=== PATIENT | female | born 1970 | race Caucasian/White ===

== ENCOUNTER → 2017-04-28 16:34 | Outpatient (CLI) | payer OTHER, SELFPAY ==
--- NOTE | 2017-04-28 16:38 | MM_ITS ---
. MM Dig screening mamm BI w/CAD CAD Screening ORDERING PHYSICIAN : [facility] PATIENT AGE: 46 years GENDER: Female COMPARISON: Previous mammograms: September.:. Film screen mammogram March 2006 & October 2005 TECHNIQUE: Standard CC and MLO images were obtained. R2 CAD reviewed. HISTORY. No female hormones. No new complaints. Noncontributory family history === FINDINGS: Azoq-kt-hedkrjks density breast with scattered fibroglandular elements bilaterally . No new dominant mass nor suspicious calcifications either breast RIGHT BREAST:Stable with no new findings follow up pneumonia LEFT BREAST:An asymmetric area of fibroglandular tissue again seen at the deep left lateral breast on cc view was seen on 2015 & even dates back to 2005.. Would also notes it dissipates on the MLO view along with no areas of concern or change on MLO view either. IMPRESSION: No significant new findings Stable mild asymmetry Follow-up in one year adequate, but should be encouraged and and emphasized BI-RADS Category: 2 Benign Finding(s) RECOMMENDED FOLLOW-UP: 1YR - 1 YEAR FOLLOW-UP (A letter has been sent to the patient regarding results of the study.)
== END ==
PROVIDERS: PCP Emergency Medicine; Visit Provider Nurse Practitioner Obstetrics & Gynecology
DX: Z12.31 Encounter for screening mammogram for malignant neoplasm of breast (principal)
CPT/HCPCS: 77067

== ENCOUNTER 2019-12-24 15:00 | Outpatient (RCR) | payer MEDICAID, SELFPAY | END 2019-12-24 15:05 | disposition home or self-care (01) | LOC: OT 15:00 | PROVIDERS: PCP Emergency Medicine; Visit Provider Orthopaedic Surgery Adult Reconstructive Orthopaedic Surgery | DX: M25.512 Pain in left shoulder (principal) | CPT/HCPCS: 97014; 97110; 97140; 97164; 97165; 97530; G0283 ==

== ENCOUNTER 2020-03-21 15:00 | Outpatient (RCR) | payer MEDICAID, SELFPAY | END 2020-03-21 15:05 | disposition home or self-care (01) | LOC: OT 15:00 | PROVIDERS: Visit Provider Orthopaedic Surgery Adult Reconstructive Orthopaedic Surgery | DX: M25.512 Pain in left shoulder (principal); Z96.612 Presence of left artificial shoulder joint | CPT/HCPCS: 97014; 97035; 97110; 97140; 97165; 97530; G0283 ==

== ENCOUNTER → 2020-08-15 14:17 | Outpatient (CLI) | payer MEDICAID, SELFPAY | PROVIDERS: Visit Provider Nurse Practitioner Family | DX: J02.9 Acute pharyngitis, unspecified (principal) ==

== ENCOUNTER → 2020-08-29 15:40 | Outpatient (CLI) | payer MEDICAID, SELFPAY | PROVIDERS: Visit Provider Internal Medicine Gastroenterology | DX: Z20.822 Contact with and (suspected) exposure to COVID-19 (principal) | CPT/HCPCS: U0003 ==

== ENCOUNTER 2020-09-01 07:22 | Day surgery (SDC) | payer MEDICAID, SELFPAY ==
[2020-08-28 14:27] VITALS: BMI 23.8
[2020-09-01] VITALS (8 sets, daily range): BP systolic 83–115; BP diastolic 45–67; PULSE 60–97; RESP 18; TEMP 36.3–36.5; O2SAT 96–100
--- NOTE | 2020-09-01 08:23 | P.PN_ITS ---
[facility] Anesthesia Checklist - Patient Identification Patient Identification: Arm Band - Structural Data Admitted From: Home Planned Operative Procedure/s: EGD Consent for Planned Operative Procedure(s) Verified: Yes - NPO Status Verified Time NPO: 00:00 - Airway Assessment C-Spine Mobility Assessed: Yes TMJ Mobility Assessed: Yes Dentition: Good Dentition - Neurological Assessment Level of Consciousness: Awake Hx Seizures: No Numbness or tingling in extremities: No - Anesthesia Plan Anesthesia Risk discussed: Yes Anesthesia Plan: Verified ASA Class: II Anesthesia Type: MAC [facility] History I have reviewed the patient's past medical history: Yes Medical History: Reports:: Anxiety, Depression Denies:: Cancer, Diabetes Mellitus Type 1, Diabetes Mellitus Type 2, Internal Pacemaker, MRSA, Seizures *Have you ever received a pneumonia vaccine?: No *Have you received a flu vaccine this season?: No Other Medical History: Reports: Other Anesthesia experience/problems:: Difficulty breathing Laterality Cases: Left: Arthroscopy Shoulder Other Surgeries: Yes: No Previous Surgery, Cholecystectomy, Colonoscopy, C- section, Diagnostic Lap, Hysterectomy-Total. No: Pacemaker Amputation: No Fractures: No - *Social History Last grade of school completed: High school graduate Smoking Status: Current every day smoker Tobacco Type: cigarettes # Packs/Day (cigarettes): 1 #Yrs smoked (if former smoker): 28 Alcohol Intake: never Substance Use Type: denies use *Occupational Status:: unemployed Housing: house Household Members: family *Travel in the last 8 weeks: None - Psychiatric History Pschychiatric History:: Reports:: Anxiety, Depression Family Hx:: Hyperlipidemia, Diabetes, Coronary Artery Disease
--- NOTE | 2020-09-01 08:29 | P.PCN_ITS ---
[facility] Procedure Note Procedure Note:: Upper Endoscopy Procedure Report: Esophagogastroduodenoscopy with cold biopsies and TTS balloon dilation Endoscopost: Hadley Peters II, MD Referring Physician: ALISSA Andres/Edson Gonzales MD Date of Procedure: September 01, 2020 Equipment: Olympus GIF 190 standard upper endoscope Sedation: MAC sedation Indications: Mrs. Reese is a 49-year-old female with the onset of odynophagia and dysphagia more than 2 weeks ago now. She does get hiccups after swallowing. She did have this painful swallowing and was diagnosed with thrush. She was given Diflucan (fluconazole) for 1 week and has improved. She was having a low- grade fever. She does report more heartburn recently. She is not on any PPI t herapy. She has not been on any recent antibiotics or corticosteroids. She has lost more than 5 pounds. She reports no bloating, abdominal pain or belching. This is her first upper endoscopy. The patient is a smoker. Procedure: Prior to the procedure, a history and physical exam was performed, and patient's medications and allergies were reviewed. The risks, benefits and alternatives of the sedation and procedure were discussed with the patient. All questions were answered and informed consent was obtained. The patient was brought to the procedure room. Patient identification and proposed procedure were verified by the physician and the nurse. The patient was placed in a left lateral decubitus position and the scope was passed under direct vision. Throughout the procedure, the patient's blood pressure, pulse, and oxygen saturations were monitored continuously. The upper GI endoscopy was accomplished without difficulty. The patient tolerated the procedure well. Findings: The scope was passed directly into the upper esophagus and advanced to the third portion of the duodenum. The post bulbar duodenum and duodenal bulb were normal with normal mucosa and conniventes. The scope was withdrawn through a normal duodenal bulb and pylorus into the stomach. There was mild linear reactive gastropathy of the antrum. The remainder of the body and fundus of the stomach were grossly normal. Upon retroflexion there was a 2 cm hiatal hernia. 2 biopsies were taken in the antrum and along the lesser curvature for histology to rule out gastritis and/or H pylori. The scope was then withdrawn into the esophagus. There was grade A reflux esophagitis and serrated Z-line. Biopsies were taken from the GE junction. There were strong tertiary contractions and evidence of moderate esophageal dysmotility. The entire esophagus was dilated to 60 English/20 mm with a TTS hydrostatic balloon. There was some resistance at the cricopharyngeus. The remainder of the esophageal mucosa was normal. Impression: 1. Cricopharyngeal spasm status post dilation to 20 mm 2. Grade A reflux esophagitis with moderate esophageal dysmotility and small 2 cm hiatal hernia 3. Mild linear reactive gastropathy of antrum Plan: I did not see any evidence of candidal esophagitis. I do feel that she gets some esophageal dyskinesia. I am going to place her on omeprazole for 3 months. I will follow-up the biopsies. We will discuss additional treatment options.
== END 2020-09-01 09:33 | disposition home or self-care (01) ==
LOC: OUTP 07:24
PROVIDERS: PCP Emergency Medicine; Visit Provider Internal Medicine Gastroenterology
PROC: 0DJ08ZZ Inspection of Upper Intestinal Tract, Via Natural or Artificial Opening Endoscopic (ICD-10-PCS; CPT 43235; principal; 2020-09-01 08:30)
DX: J39.2 Other diseases of pharynx; K20.80 Other esophagitis without bleeding; K22.4 Dyskinesia of esophagus; K44.9 Diaphragmatic hernia without obstruction or gangrene; K31.89 Other diseases of stomach and duodenum; F41.9 Anxiety disorder, unspecified; F32.9 Major depressive disorder, single episode, unspecified; Z72.0 Tobacco use; Z79.899 Other long term (current) drug therapy; Z91.040 Latex allergy status
CPT/HCPCS: 43239; 43249; C1726

== ENCOUNTER 2020-09-10 13:24 | Emergency (ER) | payer MEDICAID, SELFPAY ==
[2020-09-10 13:39] VITALS: BP 149/92; PULSE 64; RESP 19; TEMP 36.9; O2SAT 98; BMI 24.6
--- NOTE | 2020-09-10 14:15 | HMH.EDUTC ---
[facility] Disposition Clinical Impression: Sinusitis Qualifiers: Sinusitis location: unspecified location Chronicity: unspecified Qualified Code(s): J32.9 - Chronic sinusitis, unspecified Disposition: Home, Self-Care Condition on Discharge: Good Instructions: Sinusitis, DI for Sinusitis, Shingles, DI for Shingles, Amoxicillin and Clavulanic Acid, Acyclovir Additional Instructions: *Monitor Temp, Over the counter Motrin or Tylenol as directed/as needed Tylenol every 4 hours and Motrin every 6 hours (as long as your family doctor has told you that you can take it) for fever or pain. and straight to ER if unable to lower temp less than 101.0 after medication given *Warm salt water gargles may help to soothe the throat *Throat Lozenges *Warm fluids like tea with honey may help to soothe the throat *Sleep elevated *Humidifier/Vaporizer *Flonase 2 sprays in each nostril daily but be aware that it may take 2-3 days before you notice improvement Take medication as prescribed Return if needed *Follow up IMMEDIATELY for new or worsening symptoms or no Noticeable improvement over the next 48-72 hours. 911 for difficulty breathing or swallowing Prescriptions: Acyclovir 800 mg PO 5XDAY 7 Days #35 tab Transmission Status: Pending to [facility] Amoxicillin/Potassium Clav [Augmentin 875-125 Tablet] 1 tab PO Q12H 7 Days #14 tab Transmission Status: Pending to [facility] Fluticasone Propionate [Flonase 50mcg nasal spray 16gm] 1 spr NS DAILY #1 bottle Transmission Status: Pending to [facility] Benzonatate [Tessalon Perle 100mg Cap*] 100 mg PO TID PRN #15 cap PRN Reason: Cough Transmission Status: Pending to [facility] Referrals: dEson Gonzales MD [Primary Care Provider] - As needed Time of Disposition: 14:35 Medical Decision Making - Supa Inquiry Pt receiving controlled substance: No Supa was queried for this patient: No Vital Signs: 09/10/20 13:39 Temperature 98.5 F Temperature Source Oral Pulse Rate [Left] 64 Respiratory Rate 19 Blood Pressure [Right Arm] 149/92 H Blood Pressure Mean [Right Arm] 111 02 Sat by Pulse Oximetry 98 [facility] HPI - General Stated complaint: runny nose,headache,cough Time Seen by Provider: 09/10/20 14:15 Mode of Arrival: Ambulatory Source of Information: Patient Limitations: No Limitations Description of Symptoms (Recalled from Triage Doc. by RN): pt c/o a HARDY, runny nose, cough and sinus pressure. HEENT Symptoms (Recalled from RN notes): Yes (HARDY, runny nose and sinus pressure) Resp Symptoms (Recalled from RN notes): Yes (cough) Skin Symptoms (Recalled from RN notes): No MS Symptoms (Recalled from RN notes): No Functional Status (Recalled from RN notes): na - History of Present Illness Provider Complaint: Patient states that she has been having sinus problems for over about 2 weeks States that she was tested for COVID and URP on Tuesday and it was negative States that she has continued to have pain and pressure in her sinuses with congestion and cough State that she also has a blister like lesion under her right nostril that she scratched off and that denney she wanted to have checked - Related Data Home Medications Medication Instructions Recorded Confirmed Propranolol HCl 40 mg PO BID 08/28/20 09/01/20 Previous Rx's Medication Instructions Recorded citalopram 40 mg tablet See Rx Instructions .ROUTE 09/03/20 .COMPLEX #90 tablet Acyclovir 800 mg PO 5XDAY 7 Days #35 tab 09/10/20 Amoxicillin/Potassium Clav 1 tab PO Q12H 7 Days #14 tab 09/10/20 [Augmentin 875-125 Tablet] Benzonatate [Tessalon Perle 100mg 100 mg PO TID PRN #15 cap 09/10/20 Cap*] Fluticasone Propionate [Flonase 1 spr NS DAILY #1 bottle 09/10/20 50mcg nasal spray 16gm] Allergies Allergy/AdvReac Type Severity Reaction Status Date / Time latex Allergy Unknown POWDER IN Verified 09/10/20 13:53 LATEX GLOVES - Worker's Comp Is this a Worker's
[2020-09-10 14:45] VITALS: BP 141/87; PULSE 69; RESP 19; TEMP 36.9
== END 2020-09-10 14:46 | disposition home or self-care (01) ==
PROVIDERS: Emergency Provider Nurse Practitioner; PCP Emergency Medicine
DX: J32.9 Chronic sinusitis, unspecified (principal); F41.8 Other specified anxiety disorders; F17.210 Nicotine dependence, cigarettes, uncomplicated
CPT/HCPCS: 99202; G0463

== ENCOUNTER 2021-01-29 12:08 | Emergency (ER) | payer MEDICAID, SELFPAY ==
[2021-01-29 13:30] VITALS: BP 126/78; PULSE 75; RESP 18; TEMP 36.8; O2SAT 99; BMI 19.7
--- NOTE | 2021-01-29 13:32 | XR_ITS ---
PROCEDURE: XR HIP LT 2-3V W/PELVIS CLINICAL INDICATION: PAIN COMPARISON: No exams were available for comparison FINDINGS: No fracture or dislocation is evident. No significant degenerative change. No lytic or blastic change. Unremarkable soft tissues. There is a rounded opacity in the right mid abdominal region and may be due to an overlying artifact measuring 15 mm in diameter. IMPRESSION: No acute findings. Dictated by: Darci Taylor MD 01/29/2021 15:55 Darci Taylor MD in [place] 01/29/2021 15:55
--- NOTE | 2021-01-29 13:32 | XR_ITS ---
PROCEDURE: XR LUMBAR SPINE 2-3V CLINICAL INDICATION: PAIN COMPARISON: CT ABDPELW CT ABD PELVIS W/ CONTRAST from 07/15/2014 MR REFERRAL AND INFORMATION AIDE/O MRI-L-SPINE W/O from 04/02/2015 FINDINGS: Alignment: Normal alignment. Bony structures: No fracture or dislocation. No lytic or blastic change. Disc spaces: No significant degenerative change. The disc spaces are preserved. Additional findings: Atherosclerotic calcification of the aorta. There is anterior angulation of the coccyx which is a chronic finding similar to 07/15/2014 CT scan. IMPRESSION: No acute findings. Dictated by: Darci Taylor MD 01/29/2021 16:04 Darci Taylor MD in [place] 01/29/2021 16:04
--- NOTE | 2021-01-29 13:53 | HMH.EDUTC ---
[facility] Disposition Clinical Impression: Low back pain Qualifiers: Chronicity: unspecified Back pain laterality: left Sciatica presence: with sciatica Sciatica laterality: sciatica of left side Qualified Code(s): M54.42 - Lumbago with sciatica, left side Disposition: Home, Self-Care Condition on Discharge: Good Instructions: Low Back Pain, DI for Low Back Pain, Methocarbamol, Methylprednisolone Additional Instructions: *Remember you had a Toradol shot in the clinic today, which is similar to Motrin *Over the counter Motrin, Not additional anti-inflammatory like motrin, aleve, advil with the above amount of ibuprofen. You can still take Tylenol every 4 hours as needed if you need something else for pain *Ice 20 minutes every 2 hours for the first 48 hours after the initial injury followed by moist heat every 20 minutes 3-4 times a day to affected area *Muscle relaxer as directed as needed for muscle spasms but remember, it WILL cause drowsiness You cannot take it and drive, operate machinery or care for small children. *Keep this area active, no movement leads to more stiffness, However take it easy and avoid heavy lifting pushing or pulling *Follow up with you family doctor if no improvement for further treatment Prescriptions: methylPREDNISolone [Medrol 4mg tab] 4 mg PO DIRECTED #21 tab Transmission Status: Received by [facility] methocarbamoL [Methocarbamol 500mg Tablet] 500 mg PO BID PRN #20 tab PRN Reason: Muscle Spasm Transmission Status: Received by [facility] Referrals: Edson Gonzales MD [Primary Care Provider] - As needed Time of Disposition: 15:13 Medical Decision Making - Supa Inquiry Pt receiving controlled substance: No Supa was queried for this patient: No Vital Signs: 01/29/21 13:30 Temperature 98.3 F Temperature Source Oral Pulse Rate [Right Radial] 75 Respiratory Rate 18 Blood Pressure [Right Arm] 126/78 Blood Pressure Mean [Right Arm] 94 Blood Pressure Source [Right Arm] Manual Cuff/ Doppler Blood Pressure Position [Right Arm] Sitting 02 Sat by Pulse Oximetry 99 Oxygen Delivery Method Room Air Orders (Tests/Meds): ED MEDICATIONS Discontinued Medications Generic Name Dose Route Start Last Admin Trade Name Freq PRN Reason Stop Dose Admin Ketorolac Tromethamine 60 mg 01/29/21 14:38 01/29/21 14:57 Ketorolac 60mg/2ml Vial IM 01/29/21 14:39 60 mg ONCE ONE Administration Methylprednisolone Sodium Succinate 125 mg 01/29/21 14:38 01/29/21 14:57 Methylprednisolone Sod Succ 125mg Vial IM 01/29/21 14:39 125 mg ONCE ONE Administration ORDERS Category Date Time Status XR hip LT 2-3V w/pelvis Stat Exams 01/29/21 13:32 Taken XR lumbar spine 2-3V Stat Exams 01/29/21 13:32 Taken - Radiology Data #1 Image(s): Hip Image Reviewed: Yes I reviewed the patient's radiology image w/the ED provider Preliminary Findings: Normal/NAD, No Fracture Seen #2 Image(s): L-Spine Image Reviewed: Yes I reviewed the patient's radiology image w/the ED provider Preliminary Findings: Normal/NAD, No Fracture Seen Medical Decision Narrative: Medications discussed with pharmacy Patient reports that she has taken muscle relaxers in the past without complications [facility] [place] HPI - General Stated complaint: back pain, no accident Time Seen by Provider: 01/29/21 13:53 Mode of Arrival: Ambulatory Source of Information: Patient Limitations: No Limitations Description of Symptoms (Recalled from Triage Doc. by RN): Pt states lower back pain, left hip pain, and no known accident HEENT Symptoms (Recalled from RN notes): No Resp Symptoms (Recalled from RN notes): No Skin Symptoms (Recalled from RN notes): No MS Symptoms (Recalled from RN notes): No Functional Status (Recalled from RN notes): n/a - History of Present Illness Provider Complaint: Patient state that she has been having pain in her left lower back area that radiates into left hip and arou
[2021-01-29 15:29] VITALS: BP 126/78; PULSE 75; RESP 18; TEMP 36.8; O2SAT 99
== END 2021-01-29 15:29 | disposition home or self-care (01) ==
PROVIDERS: Emergency Provider Nurse Practitioner; PCP Emergency Medicine
DX: M54.42 Lumbago with sciatica, left side (principal)
CPT/HCPCS: 72100; 73502; 96372; 99202; G0463

== ENCOUNTER 2022-01-23 16:35 | Emergency (ER) | payer MEDICAID, SELFPAY ==
[2022-01-23 16:36] VITALS: BP 133/81; PULSE 72; RESP 18; TEMP 36.9; O2SAT 97; BMI 26.4
[2022-01-23 17:00] VITALS: BP 140/78; PULSE 61; O2SAT 96
--- NOTE | 2022-01-23 17:13 | CT_ITS ---
PROCEDURE INFORMATION: Exam: CT Abdomen And Pelvis With Contrast Exam date and time: 01/23/2022 5:48 PM Age: 51 years old Clinical indication: Abdominal pain; Generalized TECHNIQUE: Imaging protocol: Computed tomography of the abdomen and pelvis with contrast. Radiation optimization: All CT scans at this facility use at least one of these dose optimization techniques: automated exposure control; mA and/or kV adjustment per patient size (includes targeted exams where dose is matched to clinical indication); or iterative reconstruction. Contrast material: ISOVUE; Contrast volume: 75 ml; Contrast route: IV; COMPARISON: CR XR HIP LT 2-3V W/PELVIS 01/29/2021 1:52 PM FINDINGS: Coronary arteries: Coronary artery calcifications. Liver: Hepatic steatosis. Gallbladder and bile ducts: Gallbladder is absent. Pancreas: Normal. No ductal dilation. Spleen: Normal. No splenomegaly. Adrenal glands: Normal. No mass. Kidneys and ureters: Normal. No hydronephrosis. Stomach and bowel: Liquid fecal contents of the colon suggesting diarrhea. Mild nonspecific bowel wall thickening of portions of small bowel and colon. Appendix: Unremarkable appendix. Intraperitoneal space: Unremarkable. No free air. No significant fluid collection. Vasculature: The arteries demonstrate moderate to severe atherosclerotic disease. Lymph nodes: Unremarkable. No enlarged lymph nodes. Urinary bladder: Unremarkable as visualized. Reproductive: Status post hysterectomy. Bones/joints: Unremarkable. No acute fracture. Soft tissues: There is a healed anterior abdominal wall incision. IMPRESSION: 1. Nonspecific findings that could correlate with mild enterocolitis in the appropriate clinical setting. 2. Hepatic steatosis.
--- NOTE | 2022-01-23 17:13 | HMH.EDGENADL ---
Discharge Plan Disposition Patient Disposition: Home, Self-Care Condition: Good Prescriptions Prescriptions: No Action citalopram 40 mg tablet See Rx Instructions .ROUTE .COMPLEX Qty: 90 3RF Dose Instruction: Take 1 tablet by mouth once daily Rx Instructions: Take 1 tablet by mouth once daily fluticasone propionate 120 SPR/BOT bottle 1 spr NS DAILY Qty: 1 0RF Rx Instructions: each nostril daily propranolol 40 MG tablet See Rx Instructions .Route .COMPLEX Rx Instructions: TAKE 1/2 (ONE-HALF) TABLET BY MOUTH IN THE MORNING AND TAKE 1 TABLET AT BEDTIME methocarbamol 500 MG tablet 500 mg PO BID PRN (Reason: Muscle Spasm) Qty: 20 0RF Referrals Follow up/Referrals: Champ Quiroz MD [Primary Care Provider] - See instructions Activity Restrictions/Add. Instructions Additional Instructions/Restrictions: Collect a diarrhea sample using the provided supplies and return it along with the order form to ER registration at [facility] for testing. Obtain the results of this test from your primary care provider the next day. Zofran as needed for nausea. Do not take sertraline tomorrow, then contact your prescribing provider on Tuesday to discuss whether he should continue this medication. Clinical Impressions Clinical Impression: Diarrhea, Abdominal pain, epigastric, Nausea Instructions Patient Instructions: DI for Diarrhea and Traveler's Diarrhea -- Adult, DI for Acute Abdominal Pain, DI for Nausea -- Adult Discharge ED Provider: Giovanni Smith General Adult HPI General Chief complaint: Abdominal Pain Stated complaint: abd pain, burning in arms Time Seen by Provider: 01/23/22 17:20 Mode of Arrival: Ambulatory Source of Information: Patient Limitations: No Limitations Description of Symptoms (Recalled from ER Triage Doc. by RN): c/o upper gastric pain, nausea, diarrhea and no appetite for 2 weeks. States that her arms, chest and legs burn History of Present Illness HPI narrative: 2-week history of watery diarrhea, epigastric abdominal pain, nausea. Denies fever. Denies blood in her diarrhea. No recent travel or antibiotics. She relates the onset of symptoms to when her primary care provider changed her antidepressant medication. She states sertraline was started most recently and that is when her symptoms started. She also was recently prescribed Viibryd, but could not tolerate it and that medication was stopped. States she has an appointment for follow-up with her provider who wrote prescriptions on 01/31/2022. States last night she began having burning sensation in her arms, chest, and legs. Related Data Home Medications Medication Instructions Recorded Confirmed propranolol 40 mg tablet See Rx Instructions .Route 01/29/21 01/29/21 .COMPLEX High blood pressure Previous Rx's Medication Instructions Recorded fluticasone propionate 50 1 spr NS DAILY ##1 09/10/20 mcg/actuation nasal spray,suspension methocarbamol 500 mg tablet 500 mg PO BID PRN Muscle Spasm #20 01/29/21 tabs citalopram 40 mg tablet See Rx Instructions .Route 08/28/21 .COMPLEX #90 tabs Allergies Allergy/AdvReac Type Severity Reaction Status Date / Time latex Allergy Unknown POWDER IN Verified 09/10/20 13:53 LATEX GLOVES [facility] Disclaimer: The information contained in this section may have been updated after the patient was seen, as this information can be updated by other users. Social History Smoking Status: Current every day smoker tobacco type: cigarettes packs per day: 1 alcohol intake: never substance use type: denies use current occupational status: employed Travel in the last 8 weeks: None household members: family housing: house caffeine: Yes ROS Obtained: Yes Systems reviewed as appropriate & no additional complaints except as documented Constitutional Constitutional: Denies fever(s), Denies headache(s), Reports poor appetite
[2022-01-23 17:18] LABS: Coronavirus 19, PCR Not Detected (NotDetected); Influenza A, PCR Not Detected (NotDetected); Influenza B, PCR Not Detected (NotDetected)
[2022-01-23 17:23] LABS: Basophils # 0.2 K/mm3 (0-0.2); Basophils % 1.4 % (0.1-2.0); Chloride 102 mmol/L (98-107); Eosinophils # 0.3 K/mm3 (0.0-0.4); Eosinophils % 2.4 % (0.1-12.0); Hematocrit 43.3 % (37.0-47.0); Hemoglobin 14.8 g/dL (12.2-16.2); Lymphocytes # 3.4 K/mm3 (0.7-4.5); Lymphocytes % 26.4 % (10-50); Mean Corpuscular HGB Conc 34.3 g/dL (31.8-35.4); Mean Corpuscular Hemoglobin 30.5 pg (27.0-31.2); Mean Corpuscular Volume 89.1 fl (81-99); Mean Platelet Volume 8.5 fl (7.4-10.4); Monocytes # 0.8 K/mm3 (0.1-1.0); Monocytes % 6.3 % (1.7-9.3); Neutrophils # 8.1 K/mm3 (1.8-7.8); Neutrophils % 63.4 % (37.0-80.0); Platelet Count 476 K/mm3 (142-424); Potassium 3.2 mmoL/L (3.5-5.1); Red Blood Count 4.86 M/mm3 (4.20-5.40); Red Cell Distribution Width 13.9 % (11.5-17.5); Sodium 138 mmol/L (136-145); White Blood Count 12.7 K/mm3 (4.8-10.8)
[2022-01-23 17:26] LABS: Alanine Aminotransferase 44 U/L (12-78); Albumin Level 4.2 g/dl (3.5-5.0); Albumin/Globulin Ratio 1.4 (1.1-1.8); Alkaline Phosphatase 152 U/L (38-126); Amylase 52 U/L (30-110); Anion Gap 10.2 mEq/L (5-15); Aspartate Amino Transferase 46 U/L (14-36); Bilirubin,Total 0.3 mg/dl (0.2-1.3); Blood Urea Nitrogen 10 mg/dl (7-17); Calcium 9.5 mg/dl (8.4-10.2); Carbon Dioxide 29 mmol/L (22.0-30.0); Creatinine Clearance Estimated 106 mL/min (50-200); Estimated Glomerular Filt Rate 105 ml/min (>60); GFR (African American) 127 ML/MIN (>60); Globulin 2.9 g/dL (1.3-3.2); Glucose 106 mg/dl (74-100); Lipase 60 U/L (23-300); Total Protein,Serum 7.1 g/dl (6.3-8.2)
[2022-01-23 17:30] VITALS: BP 135/75; PULSE 66; O2SAT 97
--- NOTE | 2022-01-23 17:35 | ECG_ITS ---
APPROVED REPORT Exam: Resting ECG HR:67 bpm ECG Measurements Heart Rate 67 AXES TN 149 P 54 QRSd 94 QRS 60 QT 420 T 51 QTc 436 Conclusion SINUS RHYTHM NONSPECIFIC T-WAVE ABNORMALITY BORDERLINE ECG UNCONFIRMED REPORT Electronically signed by : Champ Quiroz MD 01/25/2022 20:03:14
[2022-01-23 18:06] LABS: Troponin I < 0.01 ng/ml (0.00-0.034)
[2022-01-23 19:48] VITALS: BP 130/78; PULSE 67; RESP 18; TEMP 36.9; O2SAT 97
== END 2022-01-23 19:49 | disposition home or self-care (01) ==
PROVIDERS: Emergency Provider Emergency Medicine; PCP Internal Medicine Adolescent Medicine
DX: R19.7 Diarrhea, unspecified (principal); R10.13 Epigastric pain; R11.0 Nausea
CPT/HCPCS: 74177; 80053; 82150; 83690; 84484; 85025; 93005; 99284; C9803; Q9967; U0003; U0005

== ENCOUNTER → 2022-01-25 17:05 | Outpatient (CLI) | payer MEDICAID, SELFPAY ==
[2022-01-25 18:34] LABS: Alanine Aminotransferase 42 U/L (12-78); Albumin Level 4.2 g/dl (3.5-5.0); Albumin/Globulin Ratio 1.6 (1.1-1.8); Alkaline Phosphatase 156 U/L (38-126); Anion Gap 10.5 mEq/L (5-15); Aspartate Amino Transferase 48 U/L (14-36); Bilirubin,Total 0.2 mg/dl (0.2-1.3); Blood Urea Nitrogen 5 mg/dl (7-17); Calcium 9.4 mg/dl (8.4-10.2); Carbon Dioxide 26 mmol/L (22.0-30.0); Chloride 105 mmol/L (98-107); Estimated Glomerular Filt Rate 88 ml/min (>60); GFR (African American) 106 ML/MIN (>60); Globulin 2.7 g/dL (1.3-3.2); Glucose 99 mg/dl (74-100); Potassium 3.5 mmoL/L (3.5-5.1); Sodium 138 mmol/L (136-145); Total Protein,Serum 6.9 g/dl (6.3-8.2)
[2022-01-25 18:45] LABS: Basophils # 0.2 K/mm3 (0-0.2); Basophils % 1.3 % (0.1-2.0); Eosinophils # 0.2 K/mm3 (0.0-0.4); Eosinophils % 1.7 % (0.1-12.0); Hematocrit 44.4 % (37.0-47.0); Hemoglobin 14.9 g/dL (12.2-16.2); Lymphocytes # 3.4 K/mm3 (0.7-4.5); Lymphocytes % 25.4 % (10-50); Mean Corpuscular HGB Conc 33.6 g/dL (31.8-35.4); Mean Corpuscular Hemoglobin 30.6 pg (27.0-31.2); Mean Corpuscular Volume 90.9 fl (81-99); Mean Platelet Volume 8.8 fl (7.4-10.4); Monocytes # 0.7 K/mm3 (0.1-1.0); Monocytes % 5.5 % (1.7-9.3); Neutrophils # 8.9 K/mm3 (1.8-7.8); Neutrophils % 66.1 % (37.0-80.0); Platelet Count 517 K/mm3 (142-424); Red Blood Count 4.89 M/mm3 (4.20-5.40); White Blood Count 13.5 K/mm3 (4.8-10.8)
== END ==
PROVIDERS: PCP Nurse Practitioner Family; Visit Provider Nurse Practitioner Family
DX: E87.6 Hypokalemia (principal); K52.9 Noninfective gastroenteritis and colitis, unspecified
CPT/HCPCS: 36415; 80053; 85025

== ENCOUNTER 2022-01-29 10:13 | Observation (INO) | payer MEDICAID, SELFPAY ==
[2022-01-29] VITALS (11 sets, daily range): BP systolic 91–139; BP diastolic 50–82; PULSE 57–83; RESP 16–20; TEMP 36.6–36.9; O2SAT 93–98; BMI 25.4; BMI 24.3
--- NOTE | 2022-01-29 10:30 | CT_ITS ---
FINAL REPORT TECHNIQUE: After the administration of intravenous contrast, axial images were obtained through the abdomen and pelvis by computed tomography. This study was performed with technique to keep radiation doses as low as reasonably achievable, (ALARA). Individualized dose reduction techniques using automated exposure control or adjustment of the MA and/or KV according to the patient's size were employed. CLINICAL HISTORY: diffuse abdominal pain worse epigastric COMPARISON: 01/23/2022 FINDINGS: Abdomen: The lung bases demonstrate mild bibasilar atelectasis. Patient is status post cholecystectomy. There is mild biliary dilatation, favor post cholecystectomy change. The liver is normal in size and attenuation. The spleen is unremarkable. The adrenals are normal. The pancreas is unremarkable. There is mild right renal scarring. Kidneys otherwise enhance appropriately. The aorta is normal in caliber. There is no free fluid or adenopathy. There are multiple fluid-filled bowel loops which are nonspecific but could represent enteritis. Pelvis: The appendix is normal. Patient is status post hysterectomy. The urinary bladder is unremarkable. There is no free fluid or adenopathy. IMPRESSION: Multiple fluid-filled bowel loops which are nonspecific but could represent enteritis. Reviewed, Interpreted and Dictated by Jesus Silvestre III, MD Transcribed by Jesika Ellington Authenticated and . [facility]
--- NOTE | 2022-01-29 10:35 | HMH.EDGENADL ---
Discharge Plan Disposition Patient Disposition: Admitted As Inpatient Chief Complaint: Nausea/Vomiting/Diarrhea Prescriptions Prescriptions: No Action citalopram 40 mg tablet See Rx Instructions .ROUTE .COMPLEX Qty: 90 3RF Dose Instruction: Take 1 tablet by mouth once daily Rx Instructions: Take 1 tablet by mouth once daily fluticasone propionate 120 SPR/BOT bottle 1 spr NS DAILY Qty: 1 0RF Rx Instructions: each nostril daily propranolol 40 MG tablet 40 mg PO BID Rx Instructions: TAKE 1/2 (ONE-HALF) TABLET BY MOUTH IN THE MORNING AND TAKE 1 TABLET AT BEDTIME methocarbamol 500 MG tablet 500 mg PO BID PRN (Reason: Muscle Spasm) Qty: 20 0RF Referrals Follow up/Referrals: Michaelle Chong APRN [Primary Care Provider] - See instructions Clinical Impressions Clinical Impression: Enteritis, Diarrhea, Vomiting, Acute hypokalemia Instructions Patient Instructions: DI for Diarrhea and Traveler's Diarrhea -- Adult, DI for Diarrhea and Traveler's Diarrhea -- Child, DI for Nausea -- Adult, DI for Nausea -- Child Discharge ED Provider: Ghanshyam Olson General Adult HPI General Chief complaint: Nausea/Vomiting/Diarrhea Stated complaint: Vomitting, diarreah Time Seen by Provider: 01/29/22 10:35 Mode of Arrival: Ambulatory Source of Information: Patient Limitations: No Limitations Description of Symptoms (Recalled from ER Triage Doc. by RN): Pt reports diarrhea for approx 1 week, states also been having intermittent epigastric area pain intermittently for 1 week. Pt reports began having vomiting this morning. History of Present Illness HPI narrative: Patient is a 51-year-old female with past medical history of previous cholecystectomy, previous abdominal adhesions status post release who presents to the emergency department for evaluation of abdominal pain. Onset was acute, over the last 24 to 48 hours, periumbilical and epigastric in nature, does not radiate to the back. Patient has had nonbloody vomiting, multiple episodes a day for the last week, nonbloody emesis over the last 24 to 48 hours. Symptoms are moderate to severe in intensity. No other acute complaints at this time. Related Data Home Medications Medication Instructions Recorded Confirmed propranolol 40 mg tablet 40 mg PO BID Tremors 01/29/21 01/29/22 Previous Rx's Medication Instructions Recorded fluticasone propionate 50 1 spr NS DAILY ##1 09/10/20 mcg/actuation nasal spray,suspension methocarbamol 500 mg tablet 500 mg PO BID PRN Muscle Spasm #20 01/29/21 tabs citalopram 40 mg tablet See Rx Instructions .Route 08/28/21 .COMPLEX #90 tabs Allergies Allergy/AdvReac Type Severity Reaction Status Date / Time latex Allergy Unknown POWDER IN Verified 09/10/20 13:53 LATEX GLOVES [facility] Disclaimer: The information contained in this section may have been updated after the patient was seen, as this information can be updated by other users. Social History Smoking Status: Current every day smoker tobacco type: cigarettes packs per day: 1 alcohol intake: never substance use type: denies use current occupational status: employed Travel in the last 8 weeks: None household members: family housing: house caffeine: Yes ROS Obtained: Yes Systems reviewed as appropriate & no additional complaints except as documented Physical Exam General General appearance: alert and in no apparent distress Head Head exam: atraumatic and normocephalic Eye Eye exam: Present PERRL and EOMI ENT ENT exam: Present mucous membranes moist Neck Neck exam: Present normal inspection Chest Chest inspection: Present normal inspection and symmetric chest wall rise Respiratory Respiratory exam: Present normal lung sounds bilaterally; Absent respiratory distress Cardiovascular Cardiovascular exam: Present regular rate and normal rhythm Abdominal Exam Abdominal exam: Present soft and tend
[2022-01-29 10:43] LABS: Basophils # 0.2 K/mm3 (0-0.2); Basophils % 1.5 % (0.1-2.0); Eosinophils # 0.3 K/mm3 (0.0-0.4); Eosinophils % 2.8 % (0.1-12.0); Hematocrit 44.2 % (37.0-47.0); Hemoglobin 15.1 g/dL (12.2-16.2); Lymphocytes # 3.3 K/mm3 (0.7-4.5); Lymphocytes % 28.4 % (10-50); Mean Corpuscular HGB Conc 34.1 g/dL (31.8-35.4); Mean Corpuscular Hemoglobin 31.2 pg (27.0-31.2); Mean Corpuscular Volume 91.3 fl (81-99); Mean Platelet Volume 8.5 fl (7.4-10.4); Monocytes # 0.6 K/mm3 (0.1-1.0); Neutrophils # 7.2 K/mm3 (1.8-7.8); Neutrophils % 62.3 % (37.0-80.0); Platelet Count 468 K/mm3 (142-424); Red Blood Count 4.84 M/mm3 (4.20-5.40); Red Cell Distribution Width 14.1 % (11.5-17.5); White Blood Count 11.5 K/mm3 (4.8-10.8)
[2022-01-29 10:44] LABS: Adenovirus F 40/41, stool Not Detected (NotDetected); Astrovirus Not Detected (NotDetected); Campylobacter Not Detected (NotDetected); Clostridium Difficile A/B, PCR Not Detected (NotDetected); Cryptosporidium Not Detected (NotDetected); Cyclospora Cayetanesis Not Detected (NotDetected); Entamoeba histolytica Not Detected (NotDetected); Enteroaggregative E coli Not Detected (NotDetected); Enteropathogenic E coli Not Detected (NotDetected); Enterotoxigenic E coli Not Detected (NotDetected); Giardia lamblia Not Detected (NotDetected); Norovirus Not Detected (NotDetected); Plesimonas Shigalloides, PCR Not Detected (NotDetected); Rotavirus A Not Detected (NotDetected); Salmonella, PCR Not Detected (NotDetected); Sapovirus Not Detected (NotDetected); Shiga-like toxin E coli Not Detected (NotDetected); Shigella Enterovasive E coli Not Detected (NotDetected); Vibrio Cholerae Not Detected (NotDetected); Vibrio, PCR Not Detected (NotDetected); Yersinia Entercolitica, PCR Not Detected (NotDetected)
[2022-01-29 10:46] LABS: Chloride 103 mmol/L (98-107); Sodium 137 mmol/L (136-145)
[2022-01-29 10:49] LABS: Alanine Aminotransferase 52 U/L (12-78); Albumin Level 4.1 g/dl (3.5-5.0); Albumin/Globulin Ratio 1.5 (1.1-1.8); Alkaline Phosphatase 138 U/L (38-126); Aspartate Amino Transferase 50 U/L (14-36); Bilirubin,Total 0.3 mg/dl (0.2-1.3); Blood Urea Nitrogen 6 mg/dl (7-17); Calcium 9.2 mg/dl (8.4-10.2); Carbon Dioxide 26 mmol/L (22.0-30.0); Creatinine Clearance Estimated 88 mL/min (50-200); Estimated Glomerular Filt Rate 88 ml/min (>60); GFR (African American) 106 ML/MIN (>60); Globulin 2.8 g/dL (1.3-3.2); Glucose 144 mg/dl (74-100); Lipase 48 U/L (23-300); Total Protein,Serum 6.9 g/dl (6.3-8.2)
--- NOTE | 2022-01-29 10:57 | ECG_ITS ---
APPROVED REPORT Exam: Resting ECG HR:64 bpm ECG Measurements Heart Rate 64 AXES CO 142 P 42 QRSd 78 QRS 54 QT 400 T 32 QTc 410 Conclusion SINUS RHYTHM NONSPECIFIC T-WAVE ABNORMALITY BORDERLINE ECG UNCONFIRMED REPORT Electronically signed by : Champ Quiroz MD 01/29/2022 16:42:59
[2022-01-29 11:11] LABS: Anion Gap 10.9 mEq/L (5-15); Lactic Acid 2.6 mmol/L (0.7-2.1); Troponin I < 0.01 ng/ml (0.00-0.034)
[2022-01-29 11:12] LABS: Potassium 2.9 mmoL/L (3.5-5.1)
--- NOTE | 2022-01-29 11:12 | PC.NURSE ---
lab called with critical potassium of 2.9
[2022-01-29 11:32] LABS: Microscopic, Urine URINE MICROSCOPIC (MICROSCOPIC)
[2022-01-29 11:34] LABS: Appearance,Urine CLEAR (Clear); Bilirubin,Urine Negative (Negative); Blood, Urine TRACE-I (Negative); Color,Urine YELLOW (Yellow); Glucose,Urine (UA) Negative (Negative); Ketones,Urine Negative (Negative); Leukocyte Esterase,Urine Negative (Negative); Nitrate,Urine Negative (Negative); Protein,Urine Negative (Negative); Specific Gravity, Urine <= 1.005 (1.005-1.030); Urobilinogen,Urine 0.2 EU/dl (0.2)
--- NOTE | 2022-01-29 11:37 | PC.NURSE ---
pt to CT
[2022-01-29 11:55] LABS: Squamous Epithelial Cell,Urine Occasional #/hpf (0-5)
[2022-01-29 12:30] LABS: Coronavirus 19, PCR Not Detected (NotDetected); Influenza A, PCR Not Detected (NotDetected); Influenza B, PCR Not Detected (NotDetected)
--- NOTE | 2022-01-29 13:28 | PC.NURSE ---
Dr. Barlow is clinical documentation nurse for Dr. Quiroz. Paged at this time
--- NOTE | 2022-01-29 13:49 | PC.NURSE ---
Spoke with Registration to place patient in a bed assignment.
--- NOTE | 2022-01-29 14:14 | PC.NURSE ---
called report to Radha and updated pt on POC. Pt agreeable at this time with POC
--- NOTE | 2022-01-29 14:29 | HMH.PHAINT1 ---
Pharmacy Intervention Comments: MEDICATION RECONCILIATION COMPLETED ON PATIENT USING EXTERNAL FILL HISTORY FROM PHARMACY AND DEVORA REPORT. -STANISLAW CACERES, KEITHD
[2022-01-29 14:36] LABS: Reflex Lactic Add Lactic Reflex
[2022-01-29 15:33] LABS: Lactic Acid Follow Up (RFLX 1) 1.1 mmol/L (0.7-2.1)
[2022-01-29 17:27] LABS: POC Glucose,Bedside 131 (70-110)
--- NOTE | 2022-01-29 17:49 | PC.NURSE ---
arrived to floor by wheelchair from ED at 14:32
[2022-01-29 22:04] LABS: POC Glucose,Bedside 132 (70-110)
[2022-01-30] VITALS (12 sets, daily range): BP systolic 124–141; BP diastolic 73–78; PULSE 60–75; RESP 18; TEMP 36.6–37; O2SAT 95–99; BMI 25.5
[2022-01-30 07:07] LABS: POC Glucose,Bedside 127 (70-110)
[2022-01-30 07:19] LABS: Chloride 107 mmol/L (98-107); Potassium 4.7 mmoL/L (3.5-5.1); Sodium 137 mmol/L (136-145)
[2022-01-30 07:22] LABS: Alanine Aminotransferase 37 U/L (12-78); Albumin Level 3.4 g/dl (3.5-5.0); Albumin/Globulin Ratio 1.4 (1.1-1.8); Alkaline Phosphatase 110 U/L (38-126); Anion Gap 7.7 mEq/L (5-15); Aspartate Amino Transferase 35 U/L (14-36); Blood Urea Nitrogen 2 mg/dl (7-17); Carbon Dioxide 27 mmol/L (22.0-30.0); Creatinine Clearance Estimated 91 mL/min (50-200); Estimated Glomerular Filt Rate 88 ml/min (>60); GFR (African American) 106 ML/MIN (>60); Globulin 2.5 g/dL (1.3-3.2); Total Protein,Serum 5.9 g/dl (6.3-8.2)
[2022-01-30 07:23] LABS: Calcium 8.5 mg/dl (8.4-10.2); Glucose 111 mg/dl (74-100); Lactic Acid 1.4 mmol/L (0.7-2.1)
[2022-01-30 07:24] LABS: Basophils # 0.2 K/mm3 (0-0.2); Basophils % 1.5 % (0.1-2.0); Eosinophils # 0.3 K/mm3 (0.0-0.4); Eosinophils % 3.1 % (0.1-12.0); Hemoglobin 13.7 g/dL (12.2-16.2); Lymphocytes # 3.5 K/mm3 (0.7-4.5); Lymphocytes % 37.2 % (10-50); Mean Corpuscular HGB Conc 33.4 g/dL (31.8-35.4); Mean Corpuscular Hemoglobin 30.6 pg (27.0-31.2); Mean Corpuscular Volume 91.6 fl (81-99); Mean Platelet Volume 8.5 fl (7.4-10.4); Monocytes # 0.7 K/mm3 (0.1-1.0); Monocytes % 7.6 % (1.7-9.3); Neutrophils # 4.8 K/mm3 (1.8-7.8); Neutrophils % 50.6 % (37.0-80.0); Platelet Count 405 K/mm3 (142-424); Red Blood Count 4.48 M/mm3 (4.20-5.40); Red Cell Distribution Width 14.2 % (11.5-17.5); White Blood Count 9.5 K/mm3 (4.8-10.8)
[2022-01-30 07:30] LABS: Bilirubin,Total 0.1 mg/dl (0.2-1.3)
--- NOTE | 2022-01-30 07:46 | PC.NURSE ---
no changes from previous assessment, vss, pt alert and oriented x4, pt up with standby assist to bathroom with some mild weakness noted, pt rested some after neurontin reordered and given, no edema noted, no other issues or concerns at this time.
--- NOTE | 2022-01-30 08:59 | EXP.HP ---
History of Present Illness *Admission Date: 01/29/22 *Reason for visit:: Vomiting/abdominal pain *History of present illness: In summary patient is a 51-year-old female with past medical history described above who presents emergency department for evaluation abdominal pain.? Patient is hemodynamically stable nontoxic-appearing upon arrival, appearing in pain.? Differential diagnosis includes gastroenteritis, partial bowel obstruction, pancreatitis, atypical ACS, perforated gastric ulcer, among others.? Work-up will be conducted with hematologic labs, CT of abdomen pelvis IV contrast, urinalysis, diarrhea panel.? Initial interventions include morphine, crystalloid bolus, Zofran, GI cocktail.? Work-up reviewed by me, hypokalemia of 2.9 which will be repleted orally and IV, mild elevated lactate consistent with vomiting and diarrhea which was volume repleted with 1 L of crystalloid.? Viral swab negative, urinalysis shows no signs of infection.? CT shows findings consistent with enteritis.? Upon repeat evaluation patient was tolerating p.o. intake although significantly decreased from baseline.? Additional 1 L crystalloid will be administered.? The case was discussed with internal medicine and they will admit the patient their service for continued evaluation at this time.? GI panel pending at time of admission. Above note per ER physician. Patient received IV fluids since admission feeling better on rounds today. She feels like she could tolerate clear liquids. Continues to have a little bit of abdominal cramping but diarrhea has essentially resolved. Labs are pending this morning. [facility] Disclaimer: The information contained in this section may have been updated after the patient was seen, as this information can be updated by other users. Medical History (Updated 01/29/22 @ 14:48 by Esther Young RN) Endometriosis Essential tremor Surgical History (Updated 01/29/22 @ 14:48 by Esther Young RN) History of hysterectomy Family History (Updated 01/29/22 @ 14:48 by Esther Young RN) Essential tremor Social History (Updated 01/29/22 @ 14:48 by Esther Young RN) Smoking Status: Current every day smoker tobacco type: cigarettes packs per day: 1 alcohol intake: never substance use type: denies use current occupational status: employed Travel in the last 8 weeks: None household members: family housing: house caffeine: Yes Review of Systems Review of Systems Review of systems:: pertinent systems reviewed and negative unless documented below Meds Home Medications and Allergies Home Medications Medication Instructions Recorded Confirmed Type citalopram 20 mg tablet 20 mg PO DAILY MOOD 01/29/22 01/29/22 History clonazepam 0.5 mg tablet 0.5 mg PO HS SLEEP 01/29/22 01/29/22 History dicyclomine 20 mg tablet 20 mg PO TID STOMACH CRAMPS 01/29/22 01/29/22 History gabapentin 300 mg capsule 300 mg PO HS Pain 01/29/22 01/29/22 History ondansetron HCl 4 mg tablet 4 mg PO Q6HP PRN Nausea And 01/29/22 01/29/22 History Vomiting primidone 50 mg tablet 50 mg PO BID tremors 01/29/22 01/29/22 History propranolol 20 mg tablet 20 mg PO BID tremors 01/29/22 01/29/22 History New Prescriptions to Start Prescriptions: Allergies Allergy/AdvReac Type Severity Reaction Status Date / Time latex Allergy Unknown POWDER IN Verified 09/10/20 13:53 LATEX GLOVES Exam Data for Last 24 hours Vital signs and Labs for Last 24 Hours: Temp Pulse Resp BP Pulse Ox 97.9 F 64 18 134/75 99 01/30/22 07:30 01/30/22 07:30 01/30/22 07:30 01/30/22 07:30 01/30/22 07:30 Laboratory Results - last 24 hr 01/29/22 10:32: WBC 11.5 H, RBC 4.84, Hgb 15.1, Hct 44.2, MCV 91.3, MCH 31.2, MCHC 34.1, RDW 14.1, Plt Count 468 H, MPV 8.5, Neut % (Auto) 62.3, Lymph % (Auto) 28.4, [place] % (Auto) 5.0, Eos % (Auto) 2.8, Baso % (Auto) 1.5, Neut # (Auto) 7.2, Lymph # (Auto) 3.3, [place] # (Auto) 0.6, Eos # (Auto) 0.3, Baso
[2022-01-30 10:50] LABS: Adenovirus F 40/41, stool Not Detected (NotDetected); Astrovirus Not Detected (NotDetected); Campylobacter Not Detected (NotDetected); Clostridium Difficile A/B, PCR Not Detected (NotDetected); Cryptosporidium Not Detected (NotDetected); Cyclospora Cayetanesis Not Detected (NotDetected); Entamoeba histolytica Not Detected (NotDetected); Enteroaggregative E coli Not Detected (NotDetected); Enteropathogenic E coli Not Detected (NotDetected); Enterotoxigenic E coli Not Detected (NotDetected); Giardia lamblia Not Detected (NotDetected); Norovirus Not Detected (NotDetected); Plesimonas Shigalloides, PCR Not Detected (NotDetected); Rotavirus A Not Detected (NotDetected); Salmonella, PCR Not Detected (NotDetected); Sapovirus Not Detected (NotDetected); Shiga-like toxin E coli Not Detected (NotDetected); Shigella Enterovasive E coli Not Detected (NotDetected); Vibrio Cholerae Not Detected (NotDetected); Vibrio, PCR Not Detected (NotDetected); Yersinia Entercolitica, PCR Not Detected (NotDetected)
[2022-01-30 11:03] LABS: POC Glucose,Bedside 117 (70-110)
[2022-01-30 18:34] LABS: POC Glucose,Bedside 113 (70-110)
--- NOTE | 2022-01-30 18:34 | PC.NURSE ---
pt reports generalized weakness increasing today. states she feels tired and worn down. fsbs have been stable. pt reports nausea and diarrhea. ambulated to and back independently. ate two pieces of dry toast earlier and kept it down.
[2022-01-31] VITALS: PULSE 60
[2022-01-31 04:00] VITALS: BP 107/52; PULSE 60; RESP 20; TEMP 36.7; O2SAT 96; BMI 25.6
--- NOTE | 2022-01-31 05:58 | PC.NURSE ---
Addendum entered by Sarai Zambrano RN 01/31/22 06:52: telemetry reveals nsr with prolonged qt, hr 60-70s Original Note: pt rested well, pt verbalized some mild diarrhea x1, c/o belly discomfort, active bs noted, vss, skin pwd without edema, voiding without difficulty, telemetry reveals NSR, no other issues or concerns noted at this time.
[2022-01-31 06:43] LABS: POC Glucose,Bedside 114 (70-110)
--- NOTE | 2022-01-31 06:51 | PC.NURSE ---
pt up to bathroom this am and stated that she had a watery loose bm this am and was a large amount.
[2022-01-31 07:10] LABS: Basophils # 0.2 K/mm3 (0-0.2); Basophils % 1.5 % (0.1-2.0); Eosinophils # 0.2 K/mm3 (0.0-0.4); Eosinophils % 1.9 % (0.1-12.0); Hematocrit 43.1 % (37.0-47.0); Hemoglobin 14.5 g/dL (12.2-16.2); Lymphocytes # 3.4 K/mm3 (0.7-4.5); Mean Corpuscular HGB Conc 33.7 g/dL (31.8-35.4); Mean Corpuscular Hemoglobin 31.1 pg (27.0-31.2); Mean Corpuscular Volume 92.2 fl (81-99); Mean Platelet Volume 8.6 fl (7.4-10.4); Monocytes # 0.8 K/mm3 (0.1-1.0); Monocytes % 7.1 % (1.7-9.3); Neutrophils % 60.5 % (37.0-80.0); Platelet Count 406 K/mm3 (142-424); Red Blood Count 4.67 M/mm3 (4.20-5.40); Red Cell Distribution Width 14.1 % (11.5-17.5); White Blood Count 11.6 K/mm3 (4.8-10.8)
[2022-01-31 07:14] LABS: Chloride 104 mmol/L (98-107); Sodium 136 mmol/L (136-145)
[2022-01-31 07:15] LABS: Potassium 4.8 mmoL/L (3.5-5.1)
[2022-01-31 07:17] LABS: Anion Gap 8.8 mEq/L (5-15); Carbon Dioxide 28 mmol/L (22.0-30.0); Creatinine Clearance Estimated 80 mL/min (50-200); Estimated Glomerular Filt Rate 75 ml/min (>60); GFR (African American) 91 ML/MIN (>60)
[2022-01-31 07:18] LABS: Calcium 8.9 mg/dl (8.4-10.2); Glucose 108 mg/dl (74-100)
[2022-01-31 07:19] LABS: Blood Urea Nitrogen < 2 mg/dl (7-17)
[2022-01-31 07:29] VITALS: BP 96/67; PULSE 68; RESP 16; TEMP 36.8; O2SAT 95
[2022-01-31 08:40] VITALS: BP 111/71; PULSE 68
--- NOTE | 2022-01-31 08:57 | EXP.DC.SUM ---
General Admission date:: 01/29/22 Discharge date: 01/31/22 HPI HPI HPI: In summary patient is a 51-year-old female with past medical history described above who presents emergency department for evaluation abdominal pain.? Patient is hemodynamically stable nontoxic-appearing upon arrival, appearing in pain.? Differential diagnosis includes gastroenteritis, partial bowel obstruction, pancreatitis, atypical ACS, perforated gastric ulcer, among others.? Work-up will be conducted with hematologic labs, CT of abdomen pelvis IV contrast, urinalysis, diarrhea panel.? Initial interventions include morphine, crystalloid bolus, Zofran, GI cocktail.? Work-up reviewed by me, hypokalemia of 2.9 which will be repleted orally and IV, mild elevated lactate consistent with vomiting and diarrhea which was volume repleted with 1 L of crystalloid.? Viral swab negative, urinalysis shows no signs of infection.? CT shows findings consistent with enteritis.? Upon repeat evaluation patient was tolerating p.o. intake although significantly decreased from baseline.? Additional 1 L crystalloid will be administered.? The case was discussed with internal medicine and they will admit the patient their service for continued evaluation at this time.? GI panel pending at time of admission. Above note per ER physician. Patient received IV fluids since admission feeling better on rounds today. She feels like she could tolerate clear liquids. Continues to have a little bit of abdominal cramping but diarrhea has essentially resolved. Labs are pending this morning. Hospital Course Hospital Course Hospital Course: Patient was admitted, rehydrated, diarrhea continued but improved, her abdominal pain also improved and she was able to tolerate fluids and soft mechanical diet. Serology testing of stool showed no positive testing on her 23 panel PCR test. White count remain normal, electrolytes normalized and this morning her labs are completely normal. She continue to have a little bit of diarrhea but has been eating well drinking well is up taking care of her self. Plan okay to discharge home. I will send her some Lomotil to help with her diarrhea and I will empirically use Flagyl for possible bacterial overgrowth issues. We will schedule an appointment for follow-up in our office is Exam Data for Last 24 hours Vital signs and Labs for Last 24 Hours: Temp Pulse Resp BP Pulse Ox 98.3 F 68 16 111/71 95 01/31/22 07:29 01/31/22 08:40 01/31/22 07:29 01/31/22 08:40 01/31/22 07:29 Laboratory Results - last 24 hr 01/30/22 10:42: Stl Aeromonas (PCR) Not detected, Stl C. cayetanensis PCR Not detected, Stool Rotavirus (PCR) Not detected, Stl Adenov F 40/41 PCR Not detected, Stool Astrovirus (PCR) Not detected, Stool Campylobacter PCR Not detected, Stl C.difficile Tox PCR Not detected, Stool Cryptosporidium PCR Not detected, Stl E.coli Shiga Tox PCR Not detected, Stool E coli O157 PCR Not detected, Stl Enterotoxigenic E PCR Not detected, Stool EPEC (PCR) Not detected, Stool EAEC (PCR) Not detected, Stl E. histolytica PCR Not detected, Stool Giardia Lamblia PCR Not detected, Stool Salmonella PCR Not detected, Stool Sapovirus (PCR) Not detected, Stl P. shigelloides PCR Not detected, Stl Shigella/EIEC PCR Not detected, St Y.enterocolitica PCR Not detected, Stool Vibrio (PCR) Not detected, Stl Vibrio cholerae PCR Not detected, Stl Norovirus GI/GII PCR Not detected 01/30/22 10:54: POC Glucose 117 H 01/30/22 18:27: POC Glucose 113 H 01/31/22 06:35: POC Glucose 114 H 01/31/22 06:47: WBC 11.6 H, RBC 4.67, Hgb 14.5, Hct 43.1, MCV 92.2, MCH 31.1, MCHC 33.7, RDW 14.1, Plt Count 406, MPV 8.6, Neut % (Auto) 60.5, Lymph % (Auto) 29.0, [place] % (Auto) 7.1, Eos % (Auto) 1.9, Baso % (Auto) 1.5, Neut # (Auto) 7.0, Lymph # (Auto) 3.4, [place] # (Auto) 0.8, Eos # (Auto) 0.2, Baso # (Auto) 0.2 01/31/22 06:47: Sodium 136, Potassium 4.8, Chloride 104, Carbon Dioxide 28, Anion Gap 8.8, BUN < 2 L, Creatinine
--- NOTE | 2022-01-31 10:50 | PC.NURSE ---
pt has been discahrged form the facility. took all belongings with her and voiced understanding of all dc education and follow up appts. Saline lock discontinued. tele discontinued
--- NOTE | 2022-02-01 14:07 | CARE MANAGER ---
Called and spoke with Rere regarding post discharge status. Patient stated that she is feeling better, and was able to clam picker and start her medication prescribed at discharge. No complaints or concerns at this time.
== END 2022-01-31 10:49 | disposition home or self-care (01) ==
LOC: ER 13:37 → 2ND 13:56
PROVIDERS: Admitting Provider Family Medicine; Emergency Provider Emergency Medicine; PCP Nurse Practitioner Family; Visit Provider Internal Medicine Adolescent Medicine
DX: E86.0 Dehydration (principal); K52.9 Noninfective gastroenteritis and colitis, unspecified; E87.6 Hypokalemia; Z79.899 Other long term (current) drug therapy; R11.2 Nausea with vomiting, unspecified
CPT/HCPCS: 36415; 74177; 80048; 80053; 81001; 82962; 83605; 83690; 84484; 85025; 87506; 87507; 93005; C9803; G0378; J2405; Q9967; U0003; U0005

== ENCOUNTER 2022-10-01 18:27 | Emergency (ER) | payer MEDICAID, SELFPAY ==
[2022-10-01 18:40] VITALS: BP 138/96; PULSE 83; RESP 17; TEMP 36.9; O2SAT 98; BMI 23.9
[2022-10-01 18:53] VITALS: BP 138/96; PULSE 83; RESP 17; TEMP 36.9; O2SAT 98
--- NOTE | 2022-10-01 18:53 | EXP.UTC ---
Discharge Plan Disposition Patient Disposition: Home, Self-Care Condition: Good Prescriptions Prescriptions: New methocarbamol 500 mg tablet 500 mg PO TID PRN (Reason: muscle spasm) Qty: 20 0RF No Action citalopram 40 mg tablet 40 mg PO DAILY primidone 50 mg Tablet 50 mg PO BID propranolol 20 mg Tablet 20 mg PO BID Referrals Follow up/Referrals: Champ Quiroz MD [Primary Care Provider] - See instructions Activity Restrictions/Add. Instructions Additional Instructions/Restrictions: *Ibuprofen mau 6 hours with meal as needed for pain/inflammation *Remember you had a Toradol shot in the clinic today, which is similar to Motrin so dont take any more tonight *Not additional anti-inflammatory like motrin, aleve, advil with the above amount of ibuprofen. You can still take Tylenol every 4 hours as needed if you need something else for pain *Ice 20 minutes every 2 hours for the first 48 hours after the initial injury followed by moist heat every 20 minutes 3-4 times a day to affected area *Muscle relaxer every 8 hours as needed for muscle spasms but remember, it WILL cause drowsiness You cannot take it and drive, operate machinery or care for small children. *Keep this area active, no movement leads to more stiffness, However take it easy and avoid heavy lifting pushing or pulling *Follow up with you family doctor if no improvement for further treatment Clinical Impressions Clinical Impression: Low back pain Qualifiers: Chronicity: unspecified Back pain laterality: right Sciatica presence: with sciatica Sciatica laterality: sciatica of right side Qualified Code(s): M54.41 - Lumbago with sciatica, right side Instructions Patient Instructions: Low Back Pain, DI for Sciatica Discharge ED Provider: Anne Marie Eli [facility] General Stated complaint: lower back pain,hip pain Mode of Arrival: Ambulatory Source of Information: Patient Limitations: No Limitations Time Seen by Provider: 10/01/22 18:54 Description of Symptoms (Recalled from Triage Doc. 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 and has lower back problems States that for the last three days she has been having pain in her lower back that is going into her right hip States that pain is like she has had before except on the left and she has tried OTC medications but not had any relief Denies loss of control of bowel or bladder Related Data Home Medications Medication Instructions Recorded Confirmed primidone 50 mg tablet 50 mg PO BID tremors 01/29/22 10/01/22 propranolol 20 mg tablet 20 mg PO BID tremors 01/29/22 10/01/22 citalopram 40 mg tablet 40 mg PO DAILY Depression 04/14/22 10/01/22 Previous Rx's Medication Instructions Recorded methocarbamol 500 mg tablet 500 mg PO TID PRN muscle spasm #20 10/01/22 tabs Allergies Allergy/AdvReac Type Severity Reaction Status Date / Time No Known Allergies Allergy Verified 06/01/22 11:54 Worker's Comp Is this a Worker's Comp case?: No [facility] Disclaimer: The information contained in this section may have been updated after the patient was seen, as this information can be updated by other users. Medical History (Updated 10/01/22 @ 19:03 by Anne Marie Eli APRN) Anxiety Endometriosis Essential tremor Hemorrhoid History of pleurisy Surgical History H/O rotator cuff surgery History of History of hysterectomy Hx of cholecystectomy Family History (Updated 06/01/22 @ 12:08 by Dayanna Harrell RN) Other Essential t
== END 2022-10-01 19:30 | disposition home or self-care (01) ==
PROVIDERS: Emergency Provider Nurse Practitioner; PCP Internal Medicine Adolescent Medicine
DX: M54.41 Lumbago with sciatica, right side (principal); F17.210 Nicotine dependence, cigarettes, uncomplicated; F41.9 Anxiety disorder, unspecified; X50.0XXA Overexertion from strenuous movement or load, initial encounter
CPT/HCPCS: 96372; 99212; 99214; G0463

== ENCOUNTER 2023-01-17 14:58 | Emergency (ER) | payer MEDICAID, SELFPAY ==
[2023-01-17 15:00] VITALS: BP 138/85; PULSE 76; RESP 18; TEMP 36.5; O2SAT 96; BMI 25.7
--- NOTE | 2023-01-17 15:04 | XR_ITS ---
FINAL REPORT CLINICAL HISTORY: laceration, glass FB? Laceration to posterior side of right wrist caused by broken glass. COMPARISON: None FINDINGS: RIGHT WRIST Three views demonstrate no acute fracture or dislocation. The visualized joint spaces are normally aligned. The soft tissues are unremarkable. Specifically, no radiopaque foreign body is identified. There is mild degenerative change on the radial aspect of the wrist. IMPRESSION: No acute bony or soft tissue abnormality. Reviewed, Interpreted and Dictated by Jesus Silvestre III, MD Transcribed by Nisa Stoll Authenticated and [facility]
--- NOTE | 2023-01-17 15:05 | HMH.EDGENADL ---
Discharge Plan Disposition Patient Disposition: Home, Self-Care Prescriptions Prescriptions: New cephalexin 500 mg capsule 500 mg PO TID 5 Days Qty: 15 0RF No Action citalopram 40 mg tablet 40 mg PO DAILY primidone 50 mg Tablet 50 mg PO BID propranolol 20 mg Tablet 20 mg PO BID methocarbamol 500 mg tablet 500 mg PO TID PRN (Reason: muscle spasm) Qty: 20 0RF Referrals Follow up/Referrals: Champ Quiroz MD [Primary Care Provider] - See instructions Activity Restrictions/Add. Instructions Additional Instructions/Restrictions: will call you to see Dr. Chacko with Plastics/hand tomorrow. Please be looking for a phone call. Call our ED back tonight if you have not heard anything. Clinical Impressions Clinical Impression: Laceration of wrist Instructions Patient Instructions: DI for Laceration Repair Discharge ED Provider: Jaime Fisher General Adult HPI General Chief complaint: Wound/Laceration Stated complaint: AO laceration on right wrist can't move fingers Time Seen by Provider: 01/17/23 15:02 History of Present Illness HPI narrative: Is a previously healthy 52-year-old female presenting today with a laceration on the dorsal aspect of the right wrist. States that she was upset and punched a window but states that she did not intend to harm herself with a window shattered and lacerated the dorsal aspect of the wrist. She has no ongoing desires to harm herself and is emotionally calm down. She is unsure as to when her last tetanus shot was. Is having difficulty with extension. Related Data Home Medications Medication Instructions Recorded Confirmed primidone 50 mg tablet 50 mg PO BID tremors 01/29/22 10/01/22 propranolol 20 mg tablet 20 mg PO BID tremors 01/29/22 10/01/22 citalopram 40 mg tablet 40 mg PO DAILY Depression 04/14/22 10/01/22 Previous Rx's Medication Instructions Recorded methocarbamol 500 mg tablet 500 mg PO TID PRN muscle spasm #20 10/01/22 tabs cephalexin 500 mg capsule 500 mg PO TID 5 days #15 caps 01/17/23 Allergies Allergy/AdvReac Type Severity Reaction Status Date / Time No Known Allergies Allergy Verified 06/01/22 11:54 [facility] Disclaimer: The information contained in this section may have been updated after the patient was seen, as this information can be updated by other users. Medical History (Updated 01/17/23 @ 15:07 by Jaime Fisher MD) Anxiety Endometriosis Essential tremor Hemorrhoid History of pleurisy Surgical History H/O rotator cuff surgery History of History of hysterectomy Hx of cholecystectomy Family History (Updated 06/01/22 @ 12:08 by Dayanna Harrell, RN) Other Essential tremor Social History (Updated 06/01/22 @ 12:03 by Dayanna Harrell RN) Smoking Status: Current every day smoker tobacco type: cigarettes packs per day: 1 alcohol intake: never substance use type: denies use current occupational status: unemployed Travel in the last 8 weeks: None household members: family housing: house caffeine: Yes ROS Obtained: Yes All systems reviewed & no additional complaints except as documented Physical Exam General General appearance: alert Respiratory Respiratory exam: Present normal lung sounds bilaterally Cardiovascular Cardiovascular exam: Present regular rate; Absent tachycardia Extremities Exam Extremities exam: Present other (3 cm laceration on the dorsal aspect of the right wrist no obvious foreign body she has difficulty with extension of the long finger) Neurological Exam Neurological exam: Present alert and oriented X3 Medical Decision Making Supa Inquiry Pt receiving controlled substance: No Vital Signs: 01/17/23 15:00 Temperature 97.7 F Temperature Source Oral Pulse Rate [Radial] 76 Respiratory Rate 18 Blood Pressure [Left Arm] 138/85 Blood Pressure Mean [Left
--- NOTE | 2023-01-17 15:06 | PC.NURSE ---
1503 DR FRACNOIS AT BEDSIDE
--- NOTE | 2023-01-17 15:08 | PC.NURSE ---
PT TO XR
--- NOTE | 2023-01-17 15:11 | PC.NURSE ---
PT RETURNED FROM XR
--- NOTE | 2023-01-17 15:32 | PC.NURSE ---
Called [facility] for hand follow up
--- NOTE | 2023-01-17 15:37 | PC.NURSE ---
Dr Fisher speaking with [employer]
[2023-01-17 15:50] VITALS: BP 132/84; PULSE 78; RESP 18; TEMP 36.5; O2SAT 97
== END 2023-01-17 15:50 | disposition home or self-care (01) ==
PROVIDERS: Emergency Provider Student in an Organized Health Care Education/Training Program; PCP Internal Medicine Adolescent Medicine
DX: S61.511A Laceration without foreign body of right wrist, initial encounter (principal); W25.XXXA Contact with sharp glass, initial encounter; F17.210 Nicotine dependence, cigarettes, uncomplicated; F41.9 Anxiety disorder, unspecified
CPT/HCPCS: 12032; 73110; 90471; 90715; 99283

== ENCOUNTER 2023-01-22 11:26 | Emergency (ER) | payer MEDICAID, SELFPAY ==
[2023-01-22 11:30] VITALS: BP 136/77; PULSE 78; RESP 18; TEMP 36.6; O2SAT 98; BMI 24.8
--- NOTE | 2023-01-22 11:46 | EXP.UTC ---
Discharge Plan Disposition Patient Disposition: Home, Self-Care Condition: Good Prescriptions Prescriptions: No Action citalopram 40 mg tablet 40 mg PO DAILY primidone 50 mg Tablet 50 mg PO BID propranolol 20 mg Tablet 20 mg PO BID methocarbamol 500 mg tablet 500 mg PO TID PRN (Reason: muscle spasm) Qty: 20 0RF cephalexin 500 mg capsule 500 mg PO TID 5 Days Qty: 15 0RF Referrals Follow up/Referrals: Champ Quiroz MD [Primary Care Provider] - See instructions Activity Restrictions/Add. Instructions Additional Instructions/Restrictions: Keep area clean and dry. Clinical Impressions Clinical Impression: Laceration of wrist Qualifiers: Encounter type: sequela Laterality: right Qualified Code(s): S61.511S - Laceration without foreign body of right wrist, sequela Instructions Patient Instructions: DI for Laceration Repair Discharge ED Provider: Lora Rodríguez [facility] General Stated complaint: stitches on right hand possibly loose Time Seen by Provider: 01/22/23 11:40 History of Present Illness Provider Complaint: Pt relates that she cut her right hand on glass and received stitches and is concerned with with the drainage that a stitch may be loose. She reports that she has had a lot of itching under the dressing. She is to have surgery on Tuesday at . Related Data Home Medications Medication Instructions Recorded Confirmed primidone 50 mg tablet 50 mg PO BID tremors 01/29/22 10/01/22 propranolol 20 mg tablet 20 mg PO BID tremors 01/29/22 10/01/22 citalopram 40 mg tablet 40 mg PO DAILY Depression 04/14/22 10/01/22 Previous Rx's Medication Instructions Recorded methocarbamol 500 mg tablet 500 mg PO TID PRN muscle spasm #20 10/01/22 tabs cephalexin 500 mg capsule 500 mg PO TID 5 days #15 caps 01/17/23 Allergies Allergy/AdvReac Type Severity Reaction Status Date / Time No Known Allergies Allergy Verified 06/01/22 11:54 [facility] Disclaimer: The information contained in this section may have been updated after the patient was seen, as this information can be updated by other users. Medical History (Updated 01/22/23 @ 11:55 by Lora Rodríguez APRN) Anxiety Endometriosis Essential tremor Hemorrhoid History of pleurisy Surgical History H/O rotator cuff surgery History of History of hysterectomy Hx of cholecystectomy Family History (Updated 06/01/22 @ 12:08 by Dayanna Harrell RN) Other Essential tremor Social History (Updated 06/01/22 @ 12:03 by Dayanna Harrell RN) Smoking Status: Current every day smoker tobacco type: cigarettes packs per day: 1 alcohol intake: never substance use type: denies use current occupational status: unemployed Travel in the last 8 weeks: None household members: family housing: house caffeine: Yes ROS Obtained: Yes All systems reviewed & no additional complaints except as documented Constitutional Constitutional: Reports system reviewed and no additional complaints, except as documented Eyes Eyes: Reports system reviewed and no additional complaints, except as documented ENT Ears, Nose, Mouth, and Throat: Reports system reviewed and no additional complaints, except as documented Cardiovascular Cardiovascular: Reports system reviewed and no additional complaints, except as documented Respiratory Respiratory: Reports system reviewed and no additional complaints, except as documented Gastrointestinal Gastrointestingal: Reports system reviewed and no additional complaints, except as documented Genitourinary Female Genitourinary: Reports system reviewed and no additional complaints, except as documented Musculoskeletal Musculoskeletal: Reports system reviewed and no additional complaints, except as documented Integumentary/Breasts Skin/Breast: Reports system reviewed and no additional complaints, except as documented, Re
[2023-01-22 12:00] VITALS: BP 136/77; PULSE 78; RESP 18; TEMP 36.6; O2SAT 98
== END 2023-01-22 12:09 | disposition home or self-care (01) ==
PROVIDERS: Emergency Provider Nurse Practitioner Family; PCP Internal Medicine Adolescent Medicine
DX: F17.210 Nicotine dependence, cigarettes, uncomplicated; Z48.00 Encounter for change or removal of nonsurgical wound dressing; S61.511A Laceration without foreign body of right wrist, initial encounter; W25.XXXA Contact with sharp glass, initial encounter
CPT/HCPCS: 99212; 99213; G0463

== ENCOUNTER 2023-05-17 11:18 | Emergency (ER) | payer MEDICAID, SELFPAY ==
[2023-05-17 11:28] VITALS: BMI 25.4
[2023-05-17 11:35] LABS: Coronavirus 19, PCR Not Detected (NotDetected); Influenza A, PCR Not Detected (NotDetected); Influenza B, PCR Not Detected (NotDetected)
[2023-05-17 11:48] VITALS: BP 128/90; PULSE 107; RESP 20; TEMP 36.7; O2SAT 96; BMI 25.4
[2023-05-17] MEDS: LACTATED RINGERS 1000ML 1,000 ML 999 ML IV (11:48)
[2023-05-17] MEDS: ONDANSETRON 4MG/2ML VIAL 4 MG IV (11:48)
--- NOTE | 2023-05-17 12:00 | ED_ITS ---
Discharge Plan Disposition Patient Disposition: Home, Self-Care Prescriptions Prescriptions: New ondansetron 4 mg tablet,disintegrating 4 mg PO Q6H PRN (Reason: nausea and vomiting) Qty: 10 0RF No Action citalopram 40 mg tablet 40 mg PO DAILY primidone 50 mg Tablet 50 mg PO BID propranolol 20 mg Tablet 20 mg PO BID methocarbamol 500 mg tablet 500 mg PO TID PRN (Reason: muscle spasm) Qty: 20 0RF cephalexin 500 mg capsule 500 mg PO TID 5 Days Qty: 15 0RF Referrals Follow up/Referrals: Champ Quiroz MD [Primary Care Provider] - See instructions Activity Restrictions/Add. Instructions Additional Instructions/Restrictions: Call your family doctor to establish care for this visit to the emergency department and schedule follow-up within 48 hours to ensure improvement. If you have any worsening of your condition or any other concerning signs or symptoms, return to the emergency department or your primary care doctor for further evaluation. Imodium can be bought [id number] and can help significantly with cramping diarrhea. Zofran as prescribed to help with nausea and vomiting. Be sure to stay plenty hydrated. Clinical Impressions Clinical Impression: Vomiting and diarrhea Instructions Patient Instructions: DI for Diarrhea and Traveler's Diarrhea -- Adult, DI for Diarrhea and Traveler's Diarrhea -- Child, DI for Nausea -- Adult, DI for Nausea -- Child Discharge ED Provider: Jack Lizarraga General Adult HPI General Chief complaint: Nausea/Vomiting/Diarrhea Stated complaint: diarrhea, chills, body aches Time Seen by Provider: 05/17/23 11:25 Mode of Arrival: Ambulatory Limitations: No Limitations Description of Symptoms (Recalled from ER Triage Doc. by RN): pt to ed c/o n/v/d associated with chills and body aches. pt reports symptoms started tuesday. History of Present Illness HPI narrative: 51-year-old female no relevant medical history presenting with vomiting and diarrhea. This been going on for about 2 days now. Nonbloody, nonbilious, non- mucousy. No sick contacts he knows of. Associated with any p.o. intake. She is dry heaving at this point, unable to keep much food or water down. Feels weak and dehydrated. Please note that above description of symptoms, in this electronic medical record under categorization of recalled from ER triage doctor by RN are reflective of an initial nursing assessment, however, is not reflective of my full history and physical exam that was personally taken and clarified. Consequentially, this preceding description of symptoms, which may include the patient's categorized chief complaint in the EMR, do not reflect my personal clinical impression, and the ultimate description of history of present illness and patient stated complaints should be deferred to this section of the note. Unless stated otherwise or congruent with this section of the note, additional signs, symptoms, or incongruence should be interpreted as inaccurate with my clinical impression. Related Data Home Medications Medication Instructions Recorded Confirmed primidone 50 mg tablet 50 mg PO BID tremors 01/29/22 10/01/22 propranolol 20 mg tablet 20 mg PO BID tremors 01/29/22 10/01/22 citalopram 40 mg tablet 40 mg PO DAILY Depression 04/14/22 10/01/22 Previous Rx's Medication Instructions Recorded methocarbamol 500 mg tablet 500 mg PO TID PRN muscle spasm #20 10/01/22 tabs cephalexin 500 mg capsule 500 mg PO TID 5 days #15 caps 01/17/23 ondansetron 4 mg disintegrating 4 mg PO Q6H PRN nausea and 05/17/23 tablet vomiting #10 tabs Allergies Allergy/AdvReac Type Severity Reaction Status Date / Time No Known Allergies Allergy Verified 06/01/22 11:54 [facility] Disclaimer: The information contained in this section may have been updated after the patient was seen, as this information can be updated by other users. Medical History (Updated 05/17/23 @ 14:28 by Jack Lizarraga MD) Anxiety History of pleurisy Hemorrhoid Essential tremor Endometriosis Surgical History History of Hx of cholecystectomy H/O rotator cuff surgery History of hysterectomy Family History (Updated 06/01/22 @ 12:08 by Dayanna Harrell RN) Other Essential tremor Social History (Updated 06/01/22 @ 12:03 by Dayanna Harrell RN) Smoking Status: Current every day smoker tobacco type: cigarettes packs per day: 1 alcohol intake: never substance use type: denies use current occupational status: unemployed Travel in the last 8 weeks: None household members: family housing: house caffeine: Yes ROS Obtained: Yes All systems reviewed & no additional complaints except as documented Physical Exam General General appearance: alert, in no apparent distress and other (Appears tired) Head Head exam: atraumatic and normocephalic Eye Eye exam: Present normal appearance, PERRL and EOMI ENT ENT exam: Present mucous membranes moist Neck Neck exam: Present normal inspection, full ROM and trachea midline Respiratory Respiratory exam: Absent respiratory distress, wheezes, stridor, accessory mu scle use or prolonged expiratory phase Cardiovascular Cardiovascular exam: Present normal rhythm and tachycardia Abdominal Exam Abdominal exam: Present soft; Absent distention, tenderness, guarding, rebound or rigidity Extremities Exam Extremities exam: Absent edema Neurological Exam Neurological exam: Present alert, oriented X3, CN II-XII intact and normal gait; Absent motor sensory deficit Skin Skin exam: Present warm and dry; Absent diaphoresis or erythema Medical Decision Making Medical Records Medical records reviewed: Yes I reviewed the patient's medical records. Supa Inquiry Pt receiving controlled substance: No Supa was queried for this patient: No Vital Signs: 05/17/23 11:48 Temperature 98.0 F Temperature Source Oral Pulse Rate [Left Radial] 107 H Respiratory Rate 20 Blood Pressure [Right Arm] 128/90 Blood Pressure Mean [Right Arm] 102 02 Sat by Pulse Oximetry 96 Oxygen Delivery Method Room Air Lab Data Lab Results 05/17/23 11:28: SARS-CoV-2 (PCR) Not detected, Influenza A Untype (PCR) Not detected, Influenza Type B (PCR) Not detected Orders (Tests/Meds): ED MEDICATIONS Discontinued Medications Generic Name Dose Route Start Last Admin Trade Name Freq PRN Reason Stop Dose Admin Lactated Ringer's 1,000 mls @ 999 mls/hr 05/17/23 11:39 05/17/23 11:48 Lactated Ringer's 1000 Ml Bag IV 05/17/23 12:39 999 mls/hr .Q1H1M ONE Administration Ondansetron HCl 4 mg 05/17/23 11:39 05/17/23 11:48 Ondansetron 4mg/2ml Vial IV 05/17/23 11:40 4 mg ONCE ONE Administration ORDERS Category Date Time Status Rapid PCR Covid and Flu A/B Stat Lab 05/17/23 11:28 Completed Medical Decision Narrative: 51-year-old female no relevant medical history presenting with vomiting and diarrhea. This been going on for about 2 days now. Nonbloody, nonbilious, non- mucousy. No sick contacts he knows of. Associated with any p.o. intake. She is dry heaving at this point, unable to keep much food or water down. Feels weak and dehydrated. History obtained with patient. On arrival, patient hemodynamically stable. She appears tired, but well overall. Mildly tachycardic. Abdomen is soft, nontender, nondistended. No flank tenderness. Denying any urinary symptoms. Not actively vomiting. Likely gastroenteritis. At this point I do not feel that labs are necessary given acuity and symptoms. Patient will be given IV bolus and Zofran and reassess. On reassessment patient feeling better, had 1 episode of diarrhea, but in terms of nausea feeling better. She states that she just feels tired. Reassurance was given. Because patient at baseline without signs or symptoms of clinical decompensation, deemed appropriate for discharge. Results were relayed to patient who voiced understanding and were agreeable to outpatient management and follow up. I discussed my clinical impression with patient and answered all questions. At this time, the evidence for any other entities in the differential is insufficient to warrant any further testing or ED observation. This was explained as well. Advisory was given that persistent or worsening symptoms require further evaluation. I confirmed the understanding of this discussion. Critical Care Critical Care Time Critical Care Time: No
[2023-05-17 14:52] VITALS: BP 138/85; PULSE 95; RESP 16; TEMP 36.6; O2SAT 97
== END 2023-05-17 14:58 | disposition home or self-care (01) ==
PROVIDERS: Emergency Provider Emergency Medicine; PCP Internal Medicine Adolescent Medicine
DX: R11.2 Nausea with vomiting, unspecified (principal); R19.7 Diarrhea, unspecified; R53.1 Weakness; F17.210 Nicotine dependence, cigarettes, uncomplicated
CPT/HCPCS: 87636; 96361; 96374; 99284; J2405

== ENCOUNTER 2023-06-15 13:15 | Outpatient (CLI) | payer MEDICAID, SELFPAY ==
--- NOTE | 2023-06-15 13:18 | MM_ITS ---
PROCEDURE INFORMATION: Exam: MG Bilateral Screening 3D Mammography Exam date and time: 06/15/2023 1:17 PM Age: 52 years old Clinical indication: Screening. No family history of breast cancer. TECHNIQUE: Imaging protocol: Bilateral Screening tomosynthesis and 2D mammography including computer-aided detection (CAD) when performed. COMPARISON: 1. MG SCBI MM Dig screening mamm BI w/CAD 04/28/2017 5:06 PM 2. MG DMDXUAVR DIG MAMM-DX UNI ADD VIEWS-RT 09/25/2015 1:46 PM 3. MG DMSB DIG MAMM-SCREEN MARINA 09/03/2015 4:45 PM 4. MG DMSB DIG MAMM-SCREEN MARINA 02/27/2014 2:16 PM FINDINGS: MAMMOGRAPHY: Breast composition: There are scattered areas of fibroglandular density. Mass: None. Architectural distortion: None. Calcifications: No suspicious calcifications. Asymmetric density: None. Skin thickening: None. Axillary adenopathy: None. IMPRESSION: No mammographic evidence of malignancy. Annual screening is recommended unless otherwise clinically indicated. ASSESSMENT: BI-RADS Category 1: Negative
== END 2023-06-15 23:59 | disposition home or self-care (01) ==
LOC: RAD 13:16
PROVIDERS: PCP Nurse Practitioner Family; Visit Provider Nurse Practitioner Family
DX: Z12.31 Encounter for screening mammogram for malignant neoplasm of breast (principal)
CPT/HCPCS: 77063; 77067

== ENCOUNTER 2023-11-22 08:04 | Day surgery (SDC) | payer MEDICAID, SELFPAY ==
[2023-11-22 08:43] VITALS: BMI 25.7
[2023-11-22 08:47] VITALS: BP 152/86; PULSE 73; RESP 18; TEMP 36.4; O2SAT 93
[2023-11-22] MEDS: CYCLOPENTOLATE 2% OPHTH SOLN 2ML BOTTLE OP ×3 (08:50→09:00)
[2023-11-22] MEDS: PHENYLEPHRINE 2.5% OPHTH SOLN 2ML OP ×3 (08:50→09:00)
[2023-11-22] MEDS: TETRACAINE 0.5% OPTH SOL 15ML OP ×3 (08:50→09:00)
[2023-11-22 09:15] VITALS: BP 141/77; PULSE 70; RESP 18; O2SAT 97
[2023-11-22] MEDS: MIDAZOLAM 2MG/2ML VIAL 1 MG IV (09:15)
[2023-11-22] MEDS: SODIUM CHLORIDE 0.9% 10ML FLUSH SYRINGE 10 ML IV ×2 (09:15→09:25)
[2023-11-22 09:20] VITALS: BP 141/84; PULSE 73; RESP 18; O2SAT 98
[2023-11-22] MEDS: TIMOLOL 0.5% OPTH SOLN 5ML OP (09:24)
[2023-11-22] MEDS: TOBRAMYCIN/DEX OPTH SUSP 2.5ML OP (09:24)
[2023-11-22 09:25] VITALS: BP 138/82; PULSE 73; RESP 18; O2SAT 96
[2023-11-22] MEDS: LIDOCAINE 1% PF 2ML AMPULE 2 ML IJ (09:25)
[2023-11-22] MEDS: MIDAZOLAM 2MG/2ML VIAL 2 MG (09:25)
[2023-11-22 09:30] VITALS: BP 137/76; PULSE 74; RESP 18; O2SAT 97
[2023-11-22 09:48] VITALS: BP 136/69; PULSE 75; RESP 17; TEMP 36.3; O2SAT 97
--- NOTE | 2023-11-22 11:07 | HMH.PROCNOTE ---
[facility] Procedure Note Date: 11/22/23 Time: 11:07 Procedure Note:: Preoperative Diagnosis: Cataract combined NS Cortical Complex [Right] Eye Postop diagnosis: same Operation: Microscopic phacoemulsification with intraocular lens implant [Right] Eye Specimen: None Blood Loss: None The patient was examined in the office with a complaint of poor vision in the [right] eye. The patient reports that this interferes with ADLs such as reading, watching TV and/or driving or the vision is like looking through a foggy haze and is very troubling. The patient was examined and found to have a visually significant cataract with best corrected vision of [20/200] by refraction and/or glare testing. Treatment options, risks and benefits were explained and the patient elected to have cataract surgery in an attempt to improve their vision. The patient had the eye anesthetized with topical tetracaine, the eye ways prepped and draped in the usual fashion for cataract surgery. A paracentesis and a temporal keratotomy were made. 0.2cc of 1% lidocaine PF was placed into the anterior chamber. And aqueous/viscoelastic exchange was done and a 360 degree capsulorexis was performed. Through hydrodissection and delineation with BSS on a cannula was done. The lens nucleus was phecoemulsified with CDE of [3.29]. Residual cortical material was removed using automated I&A The capsular bag was deepened with viscoelastica and a PCIOL was placed in the capsular bag with good centration and stability. Residual viscoelastic was removed using automated I&A. The keratotomy incision was hydrated with BSS on a cannula. The wound were checked and found to be water tight. IOP was checked digitally and adjusted as needed so as not to be too high. 1 drop of timolol 0.5%, ofloxacin, prednisolone acetate and ketorolac was instilled and eye shield taped over the eye. The patient was taken to recovery in good condition and will be seen postoperatively.
== END 2023-11-22 09:45 | disposition home or self-care (01) ==
LOC: OR 08:07
PROVIDERS: PCP Internal Medicine Adolescent Medicine; Visit Provider Ophthalmology
PROC: (CPT 66984; principal; 2023-11-22 10:00)
DX: H25.811 Combined forms of age-related cataract, right eye (principal)
CPT/HCPCS: 66984; J2250; V2632

== ENCOUNTER 2023-12-23 13:41 | Emergency (ER) | payer MEDICAID, SELFPAY ==
[2023-12-23 14:00] VITALS: BP 136/86; PULSE 76; RESP 20; TEMP 37.2; O2SAT 97; BMI 25.7
--- NOTE | 2023-12-23 14:21 | ED_ITS ---
Discharge Plan Disposition Patient Disposition: Home, Self-Care Condition: Good Prescriptions Prescriptions: No Action primidone 50 mg tablet 50 mg PO BID Patient Comments: TAKE 1 TABLET BY MOUTH TWICE DAILY FOR 90 DAYS citalopram 40 mg tablet 40 mg PO DAILY Patient Comments: TAKE 1 TABLET BY MOUTH ONCE DAILY FOR 90 DAYS propranolol 20 mg tablet 20 mg PO BID Patient Comments: TAKE 1 TABLET BY MOUTH TWICE DAILY bupropion HCl 150 mg tablet extended release 24 hr 150 mg PO DAILY Patient Comments: TAKE 1 TABLET BY MOUTH EVERY 24 HOURS FOR 90 DAYS Referrals Follow up/Referrals: Champ Quiroz MD [Primary Care Provider] - See instructions Activity Restrictions/Add. Instructions Additional Instructions/Restrictions: *Monitor Temp, Over the counter Motrin or Tylenol as directed/as needed Tylenol every 4 hours and Motrin every 6 hours (as long as your family doctor has told you that you can take it) for fever or pain. and straight to ER if unable to lower temp less than 101.0 after medication given *Warm salt water gargles may help to soothe the throat *Throat Lozenges? *Warm fluids like tea with honey may help to soothe the throat? *Sleep elevated *Humidifier/Vaporizer Take medication as prescribed Your throat swab was sent for culture. Those results are typically sent to your primary care. Be sure to follow up in 2-3 days with your family doctor/primary care physician if no improvement so they can review those result and treat if necessary. If you don?t have a primary care doctor, I recommend you get one but in the mean time, you will have to return to a walk in clinic Follow up IMMEDIATELY for new or worsening symptoms or no Noticeable improvement over the next 48-72 hours. 911 for difficulty breathing or swallowing Clinical Impressions Clinical Impression: Pharyngitis Instructions Patient Instructions: Sore Throat, DI for Nasal Congestion Print Language Print Language: Japanese Discharge ED Provider: Anne Marie Eli [facility] HPI General Stated complaint: sore throat, headache, body aches, chills Mode of Arrival: Ambulatory Source of Information: Patient Limitations: No Limitations Time Seen by Provider: 12/23/23 14:21 Description of Symptoms (Recalled from Triage Doc. by RN): PATIENT C/O SORE THROAT, HEADACHE AND BODY ACHES HEENT Symptoms (Recalled from RN notes): Yes Resp Symptoms (Recalled from RN notes): No Skin Symptoms (Recalled from RN notes): No MS Symptoms (Recalled from RN notes): No Functional Status (Recalled from RN notes): WNL History of Present Illness Provider Complaint: Patient states that she has not felt well for several days with sore throat, body aches, headache and pressure in her ears States today she wasnt feeling any better so she came in to get checked Related Data Home Medications ?Medication ?Instructions ?Recorded ?Confirmed bupropion HCl 150 mg 24 hr tablet, 150 mg PO DAILY 12/23/23 12/23/23 extended release citalopram 40 mg tablet 40 mg PO DAILY 12/23/23 12/23/23 primidone 50 mg tablet 50 mg PO BID 12/23/23 12/23/23 propranolol 20 mg tablet 20 mg PO BID 12/23/23 12/23/23 Allergies Allergy/AdvReac Type Severity Reaction Status Date / Time acetaminophen [From Percocet] AdvReac Vomiting Verified 11/22/23 08:47 oxycodone [From Percocet] AdvReac Vomiting Verified 11/22/23 08:47 Worker's Comp Is this a Worker's Comp case?: No [facility] Disclaimer: The information contained in this section may have been updated after the gina peng was seen, as this information can be updated by other users. Medical History (Updated 12/23/23 @ 14:31 by Anne Marie Eli APRN) Anxiety History of pleurisy Hemorrhoid Essential tremor Endometriosis Surgical History History of hand surgery History of Hx of cholecystectomy H/O rotator cuff surgery History of hysterectomy Family History Other Essential tremor Family history of heart disease Social History (Updated 11/22/23 @ 08:44 by Aruna Gambino RN) Smoking Status: Current every day smoker tobacco type: cigarettes packs per day: 1 alcohol intake: never substance use type: denies use current occupational status: unemployed and retired Travel in the last 8 weeks: Inside the [place] household members: family housing: house caffeine: Yes ROS Obtained: Yes All systems reviewed & no additional complaints except as documented and Yes Systems reviewed as appropriate & no additional complaints except as documented Constitutional Constitutional: Reports system reviewed and no additional complaints, except as documented and Reports as per HPI ENT Ears, Nose, Mouth, and Throat: Reports system reviewed and no additional complaints, except as documented, Reports as per HPI, Reports otalgia, Reports nasal congestion, Reports nasal discharge and Reports sore throat Cardiovascular Cardiovascular: Reports system reviewed and no additional complaints, except as documented and Reports as per HPI Respiratory Respiratory: Reports system reviewed and no additional complaints, except as documented and Reports as per HPI Gastrointestinal Gastrointestingal: Reports system reviewed and no additional complaints, except as documented and as per HPI Physical Exam General General appearance: alert and in no apparent distress ENT ENT exam: Present mucous membranes moist Expanded ENT Exam TM/Canal exam: Bilateral TM: bulging Nose exam: Present sinus tenderness Throat exam: Present tonsillar erythema Respiratory Respiratory exam: Present normal lung sounds bilaterally; Absent respiratory distress or wheezes Cardiovascular Cardiovascular exam: Present regular rate, normal rhythm and normal heart sounds Abdominal Exam Abdominal exam: Present soft and normal bowel sounds; Absent distention or tenderness Neurological Exam Neurological exam: Present alert, oriented X3 and normal gait Medical Decision Making Medical Records Screening: Per USPSTF and CDC recommendations, given the prevalence of disease in our region, it is our hospital?s policy to screen for HIV and viral Hepatitis for all patients aged 18 and over and those with ongoing risk factors. Supa Inquiry Pt receiving controlled substance: No Supa was queried for this patient: No Vital Signs: 12/23/23 14:00 Temperature 99.0 F Temperature Source Oral Pulse Rate [Left Brachial] 76 Respiratory Rate 20 Blood Pressure [Left Arm] 136/86 Blood Pressure Mean [Left Arm] 102 Blood Pressure Source [Left Arm] Automatic Cuff Blood Pressure Position [Left Arm] Sitting 02 Sat by Pulse Oximetry 97 Oxygen Delivery Method Room Air Lab Data Lab results reviewed: Yes I reviewed the patient's lab results. Medical Decision Narrative: patient states that she has taken azithromcyin in the past without complications or reactions
[2023-12-23 14:37] VITALS: BP 136/86; PULSE 76; RESP 20; TEMP 37.2; O2SAT 97
== END 2023-12-23 14:42 | disposition home or self-care (01) ==
PROVIDERS: Emergency Provider Nurse Practitioner; PCP Internal Medicine Adolescent Medicine
DX: J02.9 Acute pharyngitis, unspecified (principal)
CPT/HCPCS: 99213; G0381

== ENCOUNTER 2024-04-30 23:10 | Inpatient (IN) | payer MEDICAID, SELFPAY ==
--- NOTE | 2024-04-30 22:49 | ECG_ITS ---
APPROVED REPORT Exam: Resting ECG HR:90 bpm ECG Measurements Heart Rate 90 AXES WI 149 P 67 QRSd 86 QRS 55 QT 391 T 59 QTc [address] DEPRESSION, CONSIDER SUBENDOCARDIAL INJURY [0.1+ mV ST DEPRESSION] ABNORMAL ECG UNCONFIRMED REPORT Electronically signed by : LEAH DUNLAP, 05/02/2024 05:54:46
[2024-04-30 22:54] VITALS: BP 168/107; PULSE 93; RESP 17; TEMP 36.6; O2SAT 97; BMI 25.7
--- NOTE | 2024-04-30 23:18 | HMH.EDGENADL ---
Discharge Plan Disposition Patient Disposition: Admitted Clinical Impressions Clinical Impression: Acute non-ST elevation myocardial infarction (NSTEMI) Discharge ED Provider: Onur Nathan General Adult HPI General Chief complaint: Chest Pain Stated complaint: cp Time Seen by Provider: 04/30/24 23:13 Mode of Arrival: EMS Source of Information: Patient and EMS Description of Symptoms (Recalled from ER Triage Doc. by RN): Pt presents to ED via EMS for CP that started approx 1 hour ago. Pt states she is under a ton of stress and does suffer from anxiety & depression. Pt is tearful and states her chest feels full and like she has pressure. Pt rates pain 5/10 at this time. Pt is A&O*4. History of Present Illness HPI narrative: 53-year-old female with history of anxiety and essential tremor presents for chest pain. She reports that she has had intermittent chest pain over the last week. The pain tonight started at 9 PM. The centrally located, worse with breathing. Denies any cardiac history. Reports that she has been under a lot of stress at home recently. Reports some shortness of breath associated with the chest pain. Denies any recent fever or illness. Related Data Home Medications ?Medication ?Instructions ?Recorded ?Confirmed bupropion HCl 150 mg 24 hr tablet, 150 mg PO DAILY 12/23/23 12/23/23 extended release citalopram 40 mg tablet 40 mg PO DAILY 12/23/23 12/23/23 primidone 50 mg tablet 50 mg PO BID 12/23/23 12/23/23 propranolol 20 mg tablet 20 mg PO BID 12/23/23 12/23/23 Previous Rx's ?Medication ?Instructions ?Recorded azithromycin 250 mg tablet See Rx Instructions PO .COMPLEX 5 12/23/23 (Zithromax Z-David) days #6 tabs fluticasone propionate 50 2 spray intranasal DAILY #16 grams 12/23/23 mcg/actuation nasal spray,suspension (Flonase Allergy Relief) Allergies Allergy/AdvReac Type Severity Reaction Status Date / Time oxycodone (From Percocet) AdvReac Vomiting Verified 11/22/23 08:47 [facility] Disclaimer: The information contained in this section may have been updated after the patient was seen, as this information can be updated by other users. Medical History (Updated 05/01/24 @ 03:40 by Rebeca Witt RN) Depression Anxiety History of pleurisy Hemorrhoid Essential tremor Endometriosis Surgical History History of hand surgery History of Hx of cholecystectomy H/O rotator cuff surgery History of hysterectomy Family History Other Essential tremor Family history of heart disease Social History (Updated 05/01/24 @ 03:40 by Rebeca Witt RN) Smoking Status: Current every day smoker tobacco type: cigarettes packs per day: 1 alcohol intake: never substance use type: denies use current occupational status: unemployed and retired Travel in the last 8 weeks: Inside the [place] household members: family housing: house caffeine: Yes Contact w/someone who lives/traveled outside US past 30 days?: No Exposure to someone with infectious disease in past 14 days?: No Do you have a fever (greater than 100.4 F or 38 C)?: No Have you tested positive for COVID-19: No Exposed to someone with COVID-19 in past 14 days?: No Do you have a sore throat?: No Do you have a cough?: No Do you have any weakness?: No Are you experiencing any nausea/vomitting?: No Do you have any diarrhea?: No Are you experiencing any unusual bleeding?: No Do you have any muscle aches/pain?: No Do you have any abdominal pain?: No Are you experiencing loss of taste or smell?: No Other Medical History Have you received the Flu Vaccine for this season: No Have you received the Pneumonia Vaccine: No ROS Obtained: Yes All systems reviewed & no additional complaints except as documented Physical Exam General General appearance: alert and anxious Head Head exam: atraumatic and normocephalic Eye Eye exam: Present normal appearance, PERRL and EOMI ENT ENT exam: Present normal oropharynx and normal external ear exam Neck Neck exam: Present normal inspection and full ROM Chest Chest inspection: Present normal inspection and symmetric chest wall rise; Absent tenderness Respiratory Respiratory exam: Present normal lung sounds bilaterally; Absent respiratory distress Cardiovascular Cardiovascular exam: Present regular rate and normal rhythm Abdominal Exam Abdominal exam: Present soft; Absent distention, tenderness or guarding Extremities Exam Extremities exam: Present normal inspection; Absent edema or joint swelling Back Exam Back exam: Present normal inspection; Absent tenderness Neurological Exam Neurological exam: Present alert and oriented X3; Absent motor sensory deficit Psychiatric Psychiatric exam: Present normal affect and normal mood Skin Skin exam: Present warm, dry and normal color Lymphatic Lymphatic Findings: no adenopathy Medical Decision Making Medical Records Medical records reviewed: Yes I reviewed the patient's medical records. Screening: Per USPSTF and CDC recommendations, given the prevalence of disease in our region, it is our hospital?s policy to screen for HIV and viral Hepatitis for all patients aged 18 and over and those with ongoing risk factors. Supa Inquiry Pt receiving controlled substance: No Supa was queried for this patient: No Vital Signs: 04/30/24 22:54 04/30/24 23:48 05/01/24 02:49 Temperature 97.9 F 98.3 F Temperature Source Oral Temporal Artery Scan Pulse Rate 77 80 Pulse Rate [Left] 93 H Respiratory Rate 17 20 Blood Pressure 122/76 Blood Pressure [Right Arm] 168/107 H Blood Pressure Mean [Right Arm] 127 02 Sat by Pulse Oximetry 97 Oxygen Delivery Method Room Air Room Air Lab Data Lab results reviewed: Yes I reviewed the patient's lab results. Lab Results 04/30/24 22:47: WBC 14.6 H, RBC 4.85, Hgb 14.6, Hct 42.3, MCV 87.2, MCH 30.1, MCHC 34.5, RDW 13.2, Plt Count 471 H, MPV 10.7 H, Neut % (Auto) 43.1, Lymph % (Auto) 40.6, [place] % (Auto) 11.2 H, Eos % (Auto) 2.7, Baso % (Auto) 2.0, Neut # (Auto) 6.3, Lymph # (Auto) 5.9 H, [place] # (Auto) 1.6 H, Eos # (Auto) 0.4, Baso # (Auto) 0.3 H, D-Dimer 0.40, Sodium 137, Potassium 4.0, Chloride 104, Carbon Dioxide 23, Anion Gap 14.0, BUN 11, Creatinine 0.80, Estimated Creat Clear 78, Estimated GFR 75, Est GFR ( Amer) 90, Glucose 115 H, Calcium 8.9, Total Bilirubin 0.4, AST 34, ALT 30, Alkaline Phosphatase 137 H, Troponin I 0.05 H, Total Protein 8.0 D, Albumin 4.9, Globulin 3.1, Albumin/Globulin Ratio 1.6, HCV Ab KRIS w/Rflx PCR Qn Negative, HIV Ag/Ab Combo Qual Negative 04/30/24 23:38: SARS-CoV-2 (PCR) Not detected, Influenza A Untype (PCR) Not detected, Influenza Type B (PCR) Not detected 04/30/24 22:47 04/30/24 22:47 Orders (Tests/Meds): ED MEDICATIONS Generic Name Dose Route Start Last Admin Trade Name Freq PRN Reason Stop Dose Admin Albuterol/Ipratropium 3 ml 05/01/24 02:42 Ipratropium/Albuterol 3 Ml Neb IH 05/31/24 02:41 Q6HP PRN Shortness Of Breath Artificial Tears 0 ml 05/01/24 09:00 Artificial Tears Soln 15ml Bottle OP 05/31/24 08:59 QID LINDA Docusate Sodium ml 05/01/24 09:00 Docusate Sodium 10 Ml/Udc Udc PO 05/31/24 08:59 BID LINDA Enoxaparin Sodium 60 mg 05/01/24 02:00 05/01/24 02:23 Enoxaparin 100mg/Ml Syringe 1 mg/kg (60 mg) 05/31/24 01:59 60 mg SUBCUT Administration Q12H LINDA Lorazepam 1 mg 05/01/24 02:42 Lorazepam 2mg/Ml Vial IV 05/31/24 02:41 Q4HP PRN Agitation Pantoprazole Sodium 40 mg 05/01/24 21:00 Pantoprazole 40mg Tablet PO 05/31/24 20:59 HS LINDA Discontinued Medications Generic Name Dose Route Start Last Admin Trade Name Fredevika PRN Reason Stop Dose Admin Aspirin 324 mg 04/30/24 23:24 04/30/24 23:38 Aspirin 81mg Chewable Tablet PO 04/30/24 23:25 324 mg ONCE ONE Administration Belladonna Alkaloids 60 ml 04/30/24 23:24 04/30/24 23:38 Belladonna Alkaloids 60 Ml Ml PO 04/30/24 23:25 60 ml ONCE ONE Administration ORDERS Category Date Time Status CXR --portable [XR chest portable] Stat Exams 04/30/24 23:24 Completed CBC w/Auto Diff [Complete Blood Count Auto Diff] Stat Lab 04/30/24 22:47 Completed CMP [Comprehensive Metabolic Panel] Stat Lab 04/30/24 22:47 Completed D-Dimer Stat Lab 04/30/24 22:47 Completed HIV Combo Stat Lab 04/30/24 22:47 Completed Hepatitis C Ab Qual. W/ RFX Stat Lab 04/30/24 22:47 Completed Rapid PCR Covid and Flu A/B Stat Lab 04/30/24 23:38 Completed Troponin I Q3H Lab 04/30/24 22:47 Completed Troponin I Q3H Lab 05/01/24 02:28 Completed ECG Data Tracing #1: I reviewed this ECG and interpreted as documented below: Horizontal ST depressions in lead V3, V4 and V5, sinus rhythm, no ST elevation ECG initial impression date: 04/30/24 ECG initial impression time: 22:50 Tracing #2: Improvement in previously noted ST depressions in lead V4 3 4 and 5. Patient remains in sinus rhythm. ECG initial impression date: 05/01/24 ECG initial impression time: 01:07 HEART Score History (anamnesis): Moderately suspicious ECG: Significant ST-deviation Age: 45-65 years Risk factors: No known risk factors Troponin: 1-3x normal limit HEART Score: 5 Medical Decision Narrative: 53-year-old female with history of anxiety and essential tremor presents with intermittent chest pain for the last week, consistent chest pain for the last few hours. History was obtained via interactive discussion with patient, family, chart review. On arrival, patient is [afebrile, hemodynamically stable, satting appropriately, alert, oriented x4, GCS 15], moving all extremities spontaneously. Full physical exam performed and significant for clear lungs bilaterally, no tenderness on exam Differential includes but is not limited to ACS, PE, musculoskeletal chest pain, GERD, acute aortic syndrome. Patient was given full dose aspirin for symptomatic management and correction of underlying abnormalities. Workup initiated including CBC CMP troponin EKG chest x-ray. Initial EKG interpreted by me shows ST depressions in lead V3, V4, V5. On re-evaluation, patient reports chest pain resolution. Repeat EKG obtained and shows some mid and the ST depressions. No ST elevations. Laboratory workup independently interpreted by me and significant for initial troponin elevated at 0.05. No significant electrolyte derangement or renal dysfunction. Mild leukocytosis and thrombocytosis. Imaging independently interpreted by me and significant for clear lungs bilaterally without focal opacity. See radiology read for full review of final results. Given dynamic EKG changes I spoke with Dr. Bentley who reviewed the EKGs. He recommends Lovenox and admission with plan for cath in the morning. Given patient history, exam and workup, patient's presentation most likely represents non-ST elevation IA. These findings were communicated with patient and patient was admitted to the hospitalist for further assessment. Patient received Lovenox prior to admission. Patient currently chest pain-free. Procedures Risk/Benefits of Procedure(s) Were Explained: Yes Critical Care Critical Care Time Critical Care Time: Yes Attestation: On 04/30/24, the high probability of a clinically significant, sudden or life threatening deterioration of the following system(s) cardiac required my full and direct attention, intervention and personal management. The time I documented below is in addition to time spent performing reported procedures but includes the following listed in this critical care notation. Total Time Total Critical Care Time: 40
--- NOTE | 2024-04-30 23:24 | XR_ITS ---
PROCEDURE INFORMATION: Exam: XR Chest Exam date and time: 04/30/2024 11:32 PM Age: 53 years old Clinical indication: Pain; Chest pressure; Additional info: Cp TECHNIQUE: Imaging protocol: Radiologic exam of the chest. Views: 1 view. COMPARISON: CT ABDOMEN PELVIS W CON 01/29/2022 11:32 AM FINDINGS: Lungs: Unremarkable. No consolidation. Pleural spaces: Unremarkable. No pleural effusion. No pneumothorax. Heart/Mediastinum: Unremarkable. No cardiomegaly. Bones/joints: Unremarkable. IMPRESSION: No acute findings.
[2024-04-30 23:33] LABS: Albumin Level 4.9 g/dl (3.5-5.0); Chloride 104 mmol/L (98-107); Sodium 137 mmol/L (136-145)
[2024-04-30 23:36] LABS: Alanine Aminotransferase 30 U/L (12-78); Albumin/Globulin Ratio 1.6 (1.1-1.8); Alkaline Phosphatase 137 U/L (38-126); Aspartate Amino Transferase 34 U/L (14-36); Bilirubin,Total 0.4 mg/dl (0.2-1.3); Blood Urea Nitrogen 11 mg/dl (7-17); Carbon Dioxide 23 mmol/L (22.0-30.0); Creatinine Clearance Estimated 78 mL/min (50-200); Estimated Glomerular Filt Rate 75 ml/min (>60); GFR (African American) 90 ML/MIN (>60); Globulin 3.1 g/dL (1.3-3.2)
[2024-04-30 23:37] LABS: Calcium 8.9 mg/dl (8.4-10.2); Glucose 115 mg/dl (74-100)
[2024-04-30] MEDS: ASPIRIN 81MG CHEWABLE TABLET 324 MG PO (23:38)
[2024-04-30] MEDS: BELLADONNA ALKALOIDS 60 ML ML PO (23:38)
[2024-04-30 23:39] LABS: Basophils # 0.3 K/mm3 (0-0.2); Eosinophils # 0.4 K/mm3 (0.0-0.4); Eosinophils % 2.7 % (0.1-12.0); Hematocrit 42.3 % (37.0-47.0); Hemoglobin 14.6 g/dL (12.2-16.2); Lymphocytes # 5.9 K/mm3 (0.7-4.5); Lymphocytes % 40.6 % (10-50); Mean Corpuscular HGB Conc 34.5 g/dL (31.8-35.4); Mean Corpuscular Hemoglobin 30.1 pg (27.0-31.2); Mean Corpuscular Volume 87.2 fl (81-99); Mean Platelet Volume 10.7 fl (7.4-10.4); Monocytes # 1.6 K/mm3 (0.1-1.0); Monocytes % 11.2 % (1.7-9.3); Neutrophils # 6.3 K/mm3 (1.8-7.8); Neutrophils % 43.1 % (37.0-80.0); Platelet Count 471 K/mm3 (142-424); Red Blood Count 4.85 M/mm3 (4.20-5.40); Red Cell Distribution Width 13.2 % (11.5-17.5); White Blood Count 14.6 K/mm3 (4.8-10.8)
[2024-04-30 23:43] LABS: Coronavirus 19, PCR Not Detected (NotDetected); Influenza A, PCR Not Detected (NotDetected); Influenza B, PCR Not Detected (NotDetected)
[2024-04-30 23:48] VITALS: PULSE 77
[2024-04-30 23:49] LABS: Troponin I 0.05 ng/ml (0.00-0.034)
[2024-05-01] VITALS (21 sets, daily range): BP systolic 98–131; BP diastolic 39–96; PULSE 67–80; RESP 14–20; TEMP 36.6–37.1; O2SAT 93–99; BMI 57.2; BMI 25.8
[2024-05-01 00:12] LABS: HIV Combo NEGATIVE (Negative)
[2024-05-01 00:21] LABS: Hepatitis C Ab Qual. W/ RFX NEGATIVE (Negative)
--- NOTE | 2024-05-01 01:07 | ECG_ITS ---
APPROVED REPORT Exam: Resting ECG HR:87 bpm ECG Measurements Heart Rate 87 AXES ID 147 P 56 QRSd 78 QRS 42 QT 411 T 37 QTc [address] DEVIATION AND MODERATE T-WAVE ABNORMALITY, CONSIDER ANTEROLATERAL ISCHEMIA [-0.1+ mV T-WAVE IN V3-V6] ABNORMAL ECG UNCONFIRMED REPORT Electronically signed by : LEAH DUNLAP, 05/01/2024 06:58:18
[2024-05-01] MEDS: ENOXAPARIN 100MG/ML SYRINGE 60 MG SUBCUT (02:23)
--- NOTE | 2024-05-01 02:49 | P.HP_ITS ---
<Statement entered by Gregg Barth MD - 05/01/24 22:22> Rounded on patient after nurse practitioner. Personally examined and interviewed patient. Agree with exam findings and care plan as documented. Chest pain doing some better. Cardiology evaluating. Troponin peaked at 0.23, down trended to 0.16. Planning for left heart cath. Further management pending findings. History of Present Illness *Admission Date: 05/01/24 *Reason for visit:: Chest pain with shortness of breath non-STEMI *History of present illness: This 53 female who is a smoker for greater than 30 years. Had an episode of where she had her chest was burning and she was short of breath.. She came to the emergency room was noted as having some ST depressions.. ER physician provided he did care also contacted cardiology. And the EKG improved with treatment.. For this reason the patient was ordered upon medication will be placed in the hospital and seen by cardiology in the morning with tensional for cardiac catheterization. Patient is presently stable at this time [facility] Disclaimer: The information contained in this section may have been updated after the patient was seen, as this information can be updated by other users. Medical History Depression Anxiety History of pleurisy Hemorrhoid Essential tremor Endometriosis Surgical History History of hand surgery History of Hx of cholecystectomy H/O rotator cuff surgery History of hysterectomy Family History Other Essential tremor Family history of heart disease Social History Smoking Status: Current every day smoker tobacco type: cigarettes packs per day: 1 alcohol intake: never substance use type: denies use current occupational status: unemployed and retired Travel in the last 8 weeks: Inside the [place] household members: family housing: house caffeine: Yes Contact w/someone who lives/traveled outside [place] past 30 days?: No Exposure to someone with infectious disease in past 14 days?: No Do you have a fever (greater than 100.4 F or 38 C)?: No Have you tested positive for COVID-19: No Exposed to someone with COVID-19 in past 14 days?: No Do you have a sore throat?: No Do you have a cough?: No Do you have any weakness?: No Are you experiencing any nausea/vomitting?: No Do you have any diarrhea?: No Are you experiencing any unusual bleeding?: No Do you have any muscle aches/pain?: No Do you have any abdominal pain?: No Are you experiencing loss of taste or smell?: No Other Medical History Have you received the Flu Vaccine for this season: No Have you received the Pneumonia Vaccine: No Review of Systems Review of Systems Review of systems:: pertinent systems reviewed and negative unless documented below Review of systems (narrative): Patient had period of chest pain with shortness of breath now resolved. Constitutional Constitutional: Reports as per HPI Comments: Was feeling fine until the chest burning started Eyes Eyes: Reports as per HPI ENT Ears, Nose, Mouth, and Throat: Reports as per HPI *Cardiovascular Cardiovascular: Reports as per HPI, Reports chest pain and Reports dyspnea *Respiratory Respiratory: Reports as per HPI and Reports dyspnea *Gastrointestinal Gastrointestinal: Reports as per HPI *Genitourinary Genitourinary: Reports as per HPI *Musculoskeletal Musculoskeletal: Reports as per HPI Integumentary/Breasts Skin/Breast: Reports as per HPI *Neurologic Neurologic: Reports as per HPI Psychiatric Psychiatric: Reports as per HPI Endocrine Endocrine: Reports as per HPI Hematologic/Lymphatic Hematologic/Lymphatic: Reports as per HPI Allergic/Immunologic Allergic/Immunologic: Reports as per HPI Meds Home Medications and Allergies Home Medications ?Medication ?Instructions ?Recorded ?Confirmed ?Type citalopram 40 mg tablet 40 mg PO DAILY 12/23/23 05/01/24 History primidone 50 mg tablet 50 mg PO BID 12/23/23 05/01/24 History propranolol 20 mg tablet 20 mg PO BID 12/23/23 05/01/24 History bupropion HCl 300 mg 24 hr tablet, 300 mg PO DAILY 05/01/24 05/01/24 History extended release hydroxyzine HCl 10 mg tablet 10 mg PO Q8HP PRN Anxiety 05/01/24 05/01/24 History ipratropium 20 mcg-albuterol 100 1 puff inhalation QID 05/01/24 05/01/24 History mcg/actuation mist for inhalation (Combivent Respimat) New Prescriptions to Start Prescriptions: Allergies Allergy/AdvReac Type Severity Reaction Status Date / Time oxycodone (From Percocet) AdvReac Vomiting Verified 11/22/23 08:47 Exam Data for Last 24 hours Vital signs and Labs for Last 24 Hours: Temp Pulse Resp BP Pulse Ox O2 Del Method 97.9 F 77 17 168/107 H 97 Room Air 04/30/24 22:54 04/30/24 23:48 04/30/24 22:54 04/30/24 22:54 04/30/24 22:54 04/30/24 22:54 Laboratory Results - last 24 hr 04/30/24 22:47: WBC 14.6 H, RBC 4.85, Hgb 14.6, Hct 42.3, MCV 87.2, MCH 30.1, MCHC 34.5, RDW 13.2, Plt Count 471 H, MPV 10.7 H, Neut % (Auto) 43.1, Lymph % (Auto) 40.6, [place] % (Auto) 11.2 H, Eos % (Auto) 2.7, Baso % (Auto) 2.0, Neut # (Auto) 6.3, Lymph # (Auto) 5.9 H, [place] # (Auto) 1.6 H, Eos # (Auto) 0.4, Baso # (Auto) 0.3 H, D-Dimer 0.40, Sodium 137, Potassium 4.0, Chloride 104, Carbon Dioxide 23, Anion Gap 14.0, BUN 11, Creatinine 0.80, Estimated Creat Clear 78, Estimated GFR 75, Est GFR ( Amer) 90, Glucose 115 H, Calcium 8.9, Total Bilirubin 0.4, AST 34, ALT 30, Alkaline Phosphatase 137 H, Troponin I 0.05 H, Total Protein 8.0 D, Albumin 4.9, Globulin 3.1, Albumin/Globulin Ratio 1.6, HCV Ab KRIS w/Rflx PCR Qn Negative, HIV Ag/Ab Combo Qual Negative 04/30/24 23:38: SARS-CoV-2 (PCR) Not detected, Influenza A Untype (PCR) Not detected, Influenza Type B (PCR) Not detected I & O for Last 24 hours: Intake & Output 04/28/24 04/29/24 04/30/24 05/01/24 05:59 05:59 05:59 05:59 Weight 136 lb Radiology Reports for the Last 24 Hours: Chest film showed no acute findings Constitutional Constitutional: mild distress, obese and chronically ill appearing Comments: Patient looks older than her stated age of 53 *Routine HEENT Exam Head: Present normocephalic and atraumatic Eye: Present EOMI, PERRL and normal accommodation ENT: Present mucous membranes moist *Routine Neck Exam Neck: Present supple and full ROM Routine Chest/Breast/Axilla Exam Comments: No areas of tenderness found patient had no signs of trauma able to take a deep breath without any difficulty *Routine Respiratory Exam Respiratory: Present accessory muscle use, decreased breath sounds, CTA bilaterally, normal respiratory effort, able to speak in complete sentences and symmetric chest movement *Routine Cardiovascular Exam Cardiovascular: Present RRR, Normal S1, Normal S2 and tachycardia *Routine Abdominal Exam Abdominal: Present soft and obese Comments: No tenderness on exam of abdomen *Routine Rectal Exam Rectal:: deferred *Routine Genitalia Exam Genitalia:: deferred *Routine Extremities Exam Extremities: Present normal capillary refill Comments: No edema found in lower extremities, noting all nailbeds had brisk capillary refill Routine Back/Spine/Pelvis Exam Back/Spine: Present full ROM Comments: No signs of injury to back or decreased range of motion *Routine Skin Exam Skin: Present intact, dry, warm and normal turgor *Routine Neurological Exam Neurological: Present alert, oriented X3, CN II-XII intact, normal reflexes, normal tone, vision grossly intact, hearing grossly intact and normal speech Routine Psychiatric Exam Psychiatric: Present normal affect, normal thought process, cooperative, good insight and good judgment Comments: Patient was appropriate as breast that she understood what was going on. Understood that smoking was detrimental to the heart H&P: Result Impressions 1. Angina, with some ST depressions., 2. Smoker, greater than 30 years Imaging and Cardiology Chest x-ray: Status: image reviewed by me Additional comments: Agree with reading there was no acute findings. Actually her lungs look very good for 30+-year-old smoker Assessment and Plan *Assessment and plan (1) Acute non-ST elevation myocardial infarction (NSTEMI): Status: Acute Category: Medical Code(s): I21.4 - Non-ST elevation (NSTEMI) myocardial infarction (2) Tobacco abuse: Status: Acute Category: Medical Code(s): Z72.0 - Tobacco use (3) Chronic anxiety: Status: Acute Category: Medical Code(s): F41.9 - Anxiety disorder, unspecified Plan 1. Cardiology consult for the a.m., Emergency room physician did speak with Dr. Bentley by phone., With the improvement in the ST segment of the EKG the patient will be kept on the floor until morning. Patient will be monitored continuously until then., Medication has been ordered and the ER doctor has given them. 2. Chronic smoker, the patient has tried Wellbutrin in the past. Been smoking more than 30 years talk to her about the effect upon the heart and how this affects the blood vessels. She expressed understanding 3. Long history of chronic anxiety, but for being which she has been through tonight is actually relatively calm and quite stoic
--- NOTE | 2024-05-01 03:14 | PC.NURSE ---
pt arrived to floor from ed via stretcher at 0312.
[2024-05-01 03:17] LABS: Troponin I 0.23 ng/ml (0.00-0.034)
--- NOTE | 2024-05-01 03:41 | PC.NURSE ---
Lab called with a critical troponin 0.23. Matt Camacho APRN notified.
--- NOTE | 2024-05-01 03:58 | ECG_ITS ---
APPROVED REPORT Exam: Resting ECG HR:73 bpm ECG Measurements Heart Rate 73 AXES [place] 166 P 53 QRSd 80 QRS 41 QT 431 T 34 QTc 457 Conclusion SINUS RHYTHM NONSPECIFIC ST & T-WAVE ABNORMALITY BORDERLINE ECG UNCONFIRMED REPORT Electronically signed by : Champ Quiroz MD 05/01/2024 08:54:54
--- NOTE | 2024-05-01 06:09 | PC.NURSE ---
Pt. was admitted overnight with NSTEMI Pt. had onset of CP last evening around 2100. Pt, went to the ED for evaluation. Upon arrival to floor Pt. was pain free. Denies SOB, nausea, vomiting. Pt. stated that she was just tired. Admission assessments completed. Pt. fell asleep and has slept well. VSS, Personal items and call serrano in reach.
[2024-05-01 06:25] LABS: Basophils # 0.2 K/mm3 (0-0.2); Basophils % 1.6 % (0.1-2.0); Eosinophils # 0.4 K/mm3 (0.0-0.4); Eosinophils % 2.6 % (0.1-12.0); Hematocrit 37.3 % (37.0-47.0); Lymphocytes # 5.2 K/mm3 (0.7-4.5); Lymphocytes % 38.1 % (10-50); Mean Corpuscular HGB Conc 35.1 g/dL (31.8-35.4); Mean Corpuscular Hemoglobin 30.5 pg (27.0-31.2); Mean Corpuscular Volume 86.9 fl (81-99); Mean Platelet Volume 9.7 fl (7.4-10.4); Monocytes # 1.3 K/mm3 (0.1-1.0); Monocytes % 9.3 % (1.7-9.3); Neutrophils # 6.6 K/mm3 (1.8-7.8); Platelet Count 403 K/mm3 (142-424); Red Blood Count 4.29 M/mm3 (4.20-5.40); Red Cell Distribution Width 13.1 % (11.5-17.5); White Blood Count 13.7 K/mm3 (4.8-10.8)
--- NOTE | 2024-05-01 07:02 | ECG_ITS ---
APPROVED REPORT Exam: Resting ECG HR:75 bpm ECG Measurements Heart Rate 75 AXES OR 153 P 73 QRSd 75 QRS 54 QT 409 T 37 QTc [address] DEVIATION AND MODERATE T-WAVE ABNORMALITY, CONSIDER ANTEROLATERAL ISCHEMIA [-0.1+ mV T-WAVE IN V3-V6] ABNORMAL ECG UNCONFIRMED REPORT Electronically signed by : Champ Quiroz MD 05/01/2024 08:54:41
[2024-05-01 07:36] LABS: Alanine Aminotransferase 24 U/L (12-78); Albumin/Globulin Ratio 1.6 (1.1-1.8); Alkaline Phosphatase 121 U/L (38-126); Anion Gap 9.9 mEq/L (5-15); Aspartate Amino Transferase 26 U/L (14-36); Bilirubin,Total 0.5 mg/dl (0.2-1.3); Blood Urea Nitrogen 11 mg/dl (7-17); Carbon Dioxide 23 mmol/L (22.0-30.0); Chloride 106 mmol/L (98-107); Creatinine Clearance Estimated 61 mL/min (50-200); Estimated Glomerular Filt Rate 75 ml/min (>60); GFR (African American) 90 ML/MIN (>60); Globulin 2.5 g/dL (1.3-3.2); Glucose 92 mg/dl (74-100); Magnesium 2.2 mg/dl (1.6-2.3); Potassium 3.9 mmoL/L (3.5-5.1); Sodium 135 mmol/L (136-145); Total Protein,Serum 6.5 g/dl (6.3-8.2)
[2024-05-01 08:41] LABS: Troponin I 0.16 ng/ml (0.00-0.034)
--- NOTE | 2024-05-01 09:28 | HMH.PHAINT1 ---
Pharmacy Intervention Comments: MEDICATION RECONCILIATION COMPLETED ON PATIENT USING EXTERNAL FILL HISTORY FROM PHARMACY. -STANISLAW CACERES, KEITHD
[2024-05-01] MEDS: ISOSORBIDE MONO 30MG TAB.ER.24H 30 MG PO (10:01)
[2024-05-01] MEDS: METOPROLOL SUCCINATE XL 25MG TABLET 25 MG PO (10:02)
[2024-05-01] MEDS: ASPIRIN 325MG TABLET 325 MG PO (10:02)
[2024-05-01] MEDS: ATORVASTATIN 40MG TABLET 80 MG PO (10:03)
--- NOTE | 2024-05-01 10:16 | CA_ITS ---
APPROVED REPORT EXAM: Comprehensive 2D, Doppler, and color-flow Echocardiogram Special Certificate Dictator: Lainey Randle CRT Ht: 5 ft 1 in Wt: 136lbs BSA: 1.60 BP: 168/107 mmHg Indications: Chest Pain, Shortness of Breath, Non STEMI M-Mode Dimensions RVDd 2.42 cm (0.9-2.6) LA Diam 2.67 cm (1.9-4.0) LVDd 3.96 cm (3.5-5.7) LVDs 2.38 cm (3.5-5.7) IVSd 1.07 cm (0.6-1.1) PWd 0.71 cm (0.6-1.1) EF (Teich) 71.20% FS 39.90% EDV (Teich) 68.30 mL ESV (Teich) 19.70 mL LV Diastology E Decel Time 310 (160-240 msec) E/A Ratio 1.09 MED A' 8.20 cm/s LAT A' 7.70 cm/s Aortic Valve AO Peak GR. 7.60 mmHg Mitral Valve MV A Velocity 61.0 (40-130 cm/s) E/A Ratio 1.09 Pulmonary Valve PV Peak Velocity 129.0 (50-150 cm/s) Tricuspid Valve TR P. Velocity 228.00 cm/s RAP Estimate 10.00 mmHg RVSP 30.90 mmHg Left Ventricle The left ventricle is normal size. The left ventricular systolic function is normal. The left ventricular ejection fraction is within the normal range. There is normal left ventricular wall thickness. There is normal LV segmental wall motion. The left ventricular diastolic function is normal. LVEF is 60%. Right Ventricle The right ventricle is normal size. The right ventricular systolic function is normal. Atria The left atrium size is normal. The right atrium size is normal. There is no Doppler evidence of interatrial shunt. Aortic Valve Aortic valve opens well. There is no aortic valvular stenosis. No aortic regurgitation is present. Mitral Valve The mitral valve is normal in structure. No evidence of mitral valve stenosis. There is no mitral valve regurgitation noted. Tricuspid Valve Tricuspid valve is grossly normal in structure and function. Trace tricuspid regurgitation. There is insufficient TR jet to estimate RVSP. Pulmonic Valve The pulmonary valve is normal in structure. Trace pulmonic regurgitation. Great Vessels The aortic root is normal in size. IVC is normal in size and collapses >50% with inspiration. Pericardium There is no pericardial effusion. Other Information Study Quality: Adequate Conclusion Normal biventricular systolic function. No significant valvular stenosis or regurgitation. Electronically signed by : Annette Saldana MD 05/03/2024 11:58:26
[2024-05-01] MEDS: CLOPIDOGREL 300MG TABLET 600 MG PO (11:28)
--- NOTE | 2024-05-01 12:08 | IR_ITS ---
APPROVED REPORT Patient Location: Inpatient Photogrammetric Technician: SOLE Feliciano RT (R) PROCEDURES Selective coronary angiogram INDICATION Acute non-ST elevation myocardial infarction Informed consent was obtained prior to the procedure. COMPLICATIONS NONE Estimated Blood Loss: LESS THAN 10 ML TECHNIQUE One percent lidocaine used to anesthetize the right anterior aspect of the wrist. The right radial artery was accessed via the Seldinger technique. A 6 Vietnamese sheath was placed in the right radial artery. 2.5 mg of Verapamil, 800 mcg of nitroglycerin, 1mg Lidocaine and 5000 U Heparin were given through the arterial sheath. The 6 Vietnamese JL 3 guide catheter was used to perform selective coronary angiogram. At the end of the procedure the sheath was removed good hemostasis was achieved using Traclet band, patient was transferred to the postop holding area in stable condition. ANGIOGRAPHIC RESULTS The left main artery Has a critical distal 90% stenosis The left anterior descending artery Has proximal and mid vessel eccentric 20 and 30% stenoses The circumflex artery Is dominant and has an ostial 80 to 90% stenosis and gives rise to a large ramus intermedius which has a proximal 70% stenosis. The circumflex artery also has a complex 90% stenosis immediately distal to the ramus intermedius and origin of the circumflex artery. The circumflex artery is otherwise widely patent The right coronary artery Vestigial and patent The LUBIN ventriculogram reveals Not performed The left ventricular end-diastolic pressure Not measured IMPRESSION Critical distal left main disease involving a dominant circumflex artery and ramus intermedius as described above PLAN 1. Patient requires urgent transfer to [facility] for coronary bypass surgery 2. Start high intensity statin and aspirin 81 mg daily 3. Start heparin drip Electronically signed by : Jd Bentley MD 05/01/2024 12:51:45
[2024-05-01] MEDS: LIDOCAINE 1% 10ML MDV 20 ML IJ (12:13)
[2024-05-01] MEDS: VERAPAMIL 2.5MG/ML 2ML VIAL 2.5 MG IV (12:13)
[2024-05-01] MEDS: diphenhydrAMINE 50MG/ML VIAL 50 MG IV (12:13)
[2024-05-01] MEDS: HEPARIN 1,000 UNITS/ML 10ML VIAL (CATH LAB) 10000 UNIT IV (12:13)
[2024-05-01] MEDS: 0.9 % SODIUM CHLORIDE 500 ML 25 ML IV (12:14)
[2024-05-01] MEDS: HEPARIN 1,000 UNITS/500ML NS (CATH LAB) 3000 UNIT IV (12:14)
[2024-05-01] MEDS: NITROGLYCERIN 800MCG/8ML SYR (CATH LAB) 800 MCG IA (12:14)
[2024-05-01] MEDS: MIDAZOLAM HCL 1MG/ML 5ML VIAL 1 MG IV (12:40)
[2024-05-01] MEDS: FENTANYL 100MCG/2ML VIAL 50 MCG IV (12:40)
--- NOTE | 2024-05-01 12:52 | EXP.CARD.CON ---
History of Present Illness History of Present Illness Consult date: 05/01/24 Requesting physician: Matt Camacho Consult reason: chest pain Chief complaint: chest pain History of present illness: 53 yo WF without known cardiovascular disease but a 20-rlvv-ranu smoking history presented to ED with worsening episodes of chest discomfort described as a burning sensation in the middle of her chest associated with shortness of breath and weakness. Symptoms are worse with activity and better with rest. They have been occurring in increasing frequency and severity. Yesterday symptoms became pronounced and she presented to the emergency room where she was noted to have anterolateral ST changes and elevated initial troponin at 0.05. She was admitted overnight for ACS with plans for likely cath this morning. Troponins overnight trended up to a max of 0.23 and then came back down. Her EKG is largely unchanged. She reports ongoing weakness and felt chest burning again when she got up to go to the bathroom. [facility] Disclaimer: The information contained in this section may have been updated after the patient was seen, as this information can be updated by other users. Medical History Depression Anxiety History of pleurisy Hemorrhoid Essential tremor Endometriosis Surgical History History of hand surgery History of Hx of cholecystectomy H/O rotator cuff surgery History of hysterectomy Family History Other Essential tremor Family history of heart disease Social History Smoking Status: Current every day smoker tobacco type: cigarettes packs per day: 1 alcohol intake: never substance use type: denies use current occupational status: unemployed and retired Travel in the last 8 weeks: Inside the [place] household members: family housing: house caffeine: Yes Contact w/someone who lives/traveled outside [place] past 30 days?: No Exposure to someone with infectious disease in past 14 days?: No Do you have a fever (greater than 100.4 F or 38 C)?: No Have you tested positive for COVID-19: No Exposed to someone with COVID-19 in past 14 days?: No Do you have a sore throat?: No Do you have a cough?: No Do you have any weakness?: No Are you experiencing any nausea/vomitting?: No Do you have any diarrhea?: No Are you experiencing any unusual bleeding?: No Do you have any muscle aches/pain?: No Do you have any abdominal pain?: No Are you experiencing loss of taste or smell?: No Review of Systems *Neurologic Neurologic: Reports as per HPI Exam Data for Last 24 hours Vital signs and Labs for Last 24 Hours: Temp Pulse Resp BP Pulse Ox O2 Del Method 98 F 73 16 118/59 L 98 Room Air 05/01/24 08:00 05/01/24 08:00 05/01/24 08:00 05/01/24 08:00 05/01/24 08:00 05/01/24 09:00 Laboratory Results - last 24 hr 04/30/24 22:47: WBC 14.6 H, RBC 4.85, Hgb 14.6, Hct 42.3, MCV 87.2, MCH 30.1, MCHC 34.5, RDW 13.2, Plt Count 471 H, MPV 10.7 H, Neut % (Auto) 43.1, Lymph % (Auto) 40.6, [place] % (Auto) 11.2 H, Eos % (Auto) 2.7, Baso % (Auto) 2.0, Neut # (Auto) 6.3, Lymph # (Auto) 5.9 H, [place] # (Auto) 1.6 H, Eos # (Auto) 0.4, Baso # (Auto) 0.3 H, D-Dimer 0.40, Sodium 137, Potassium 4.0, Chloride 104, Carbon Dioxide 23, Anion Gap 14.0, BUN 11, Creatinine 0.80, Estimated Creat Clear 78, Estimated GFR 75, Est GFR ( Amer) 90, Glucose 115 H, Calcium 8.9, Total Bilirubin 0.4, AST 34, ALT 30, Alkaline Phosphatase 137 H, Troponin I 0.05 H, Total Protein 8.0 D, Albumin 4.9, Globulin 3.1, Albumin/Globulin Ratio 1.6, HCV Ab KRIS w/Rflx PCR Qn Negative, HIV Ag/Ab Combo Qual Negative 04/30/24 23:38: SARS-CoV-2 (PCR) Not detected, Influenza A Untype (PCR) Not detected, Influenza Type B (PCR) Not detected 05/01/24 02:28: Troponin I 0.23 H 05/01/24 06:10: WBC 13.7 H, RBC 4.29, Hgb 13.0 D, Hct 37.3, MCV 86.9, MCH 30.5, MCHC 35.1, RDW 13.1, Plt Count 403, MPV 9.7, Neut % (Auto) 48.0, Lymph % (Auto) 38.1, [place] % (Auto) 9.3, Eos % (Auto) 2.6, Baso % (Auto) 1.6, Neut # (Auto) 6.6, Lymph # (Auto) 5.2 H, [place] # (Auto) 1.3 H, Eos # (Auto) 0.4, Baso # (Auto) 0.2, Sodium 135 L, Potassium 3.9, Chloride 106, Carbon Dioxide 23, Anion Gap 9.9, BUN 11, Creatinine 0.80, Estimated Creat Clear 61, Estimated GFR 75, Est GFR ( Amer) 90, Glucose 92, Calcium 9.0, Magnesium 2.2, Total Bilirubin 0.5, AST 26, ALT 24, Alkaline Phosphatase 121, Troponin I 0.16 H, Total Protein 6.5, Albumin 4.0 D, Globulin 2.5, Albumin/Globulin Ratio 1.6 I & O for Last 24 hours: Intake & Output 04/28/24 04/29/24 04/30/24 05/01/24 23:59 23:59 23:59 23:59 Weight 136 lb 303 lb 5.697 oz Constitutional Constitutional: no acute distress and cooperative *Routine HEENT Exam Eye: Present PERRL *Routine Respiratory Exam Respiratory: Present CTA bilaterally; Absent accessory muscle use, wheezes or crackles *Routine Cardiovascular Exam Cardiovascular: Present RRR, Normal S1 and Normal S2; Absent murmur, gallop or rubs *Routine Abdominal Exam Abdominal: Present soft; Absent tenderness *Routine Extremities Exam Extremities: Present pulses intact; Absent cyanosis or edema *Routine Skin Exam Skin: Present intact; Absent erythema or wounds *Routine Neurological Exam Neurological: Present alert and oriented X3 Routine Psychiatric Exam Psychiatric: Present cooperative Meds Home Medications and Allergies Home Medications ?Medication ?Instructions ?Recorded ?Confirmed ?Type citalopram 40 mg tablet 40 mg PO DAILY 12/23/23 05/01/24 History primidone 50 mg tablet 50 mg PO BID 12/23/23 05/01/24 History propranolol 20 mg tablet 20 mg PO BID 12/23/23 05/01/24 History bupropion HCl 300 mg 24 hr tablet, 300 mg PO DAILY 05/01/24 05/01/24 History extended release hydroxyzine HCl 10 mg tablet 10 mg PO Q8HP PRN Anxiety 05/01/24 05/01/24 History ipratropium 20 mcg-albuterol 100 1 puff inhalation QID 05/01/24 05/01/24 History mcg/actuation mist for inhalation (Combivent Respimat) New Prescriptions to Start Prescriptions: Allergies Allergy/AdvReac Type Severity Reaction Status Date / Time oxycodone (From Percocet) AdvReac Vomiting Verified 11/22/23 08:47 Assessment and Plan *Assessment and plan (1) Acute non-ST elevation myocardial infarction (NSTEMI): Status: Acute Category: Medical Code(s): I21.4 - Non-ST elevation (NSTEMI) myocardial infarction (2) Tobacco abuse: Status: Acute Category: Medical Code(s): Z72.0 - Tobacco use Plan NSTEMI - Angina, rising serial Trop, and ST changes on EKG - Start ACS meds - DAPT, BB, Statin, Lovenox - Pt agreeable to [facility] today - risks/benefits discussed with her and daughter who is bedside Tob Use - advised complete cessation - she is using Wellbutrin for this. Addendum: [facility] shows severe distal left main disease which will need CABG. Transfer to is pending. Of note, pt did receive loading dose of Plavix this morning. Will DC Plavix and start Heparin drip.
[2024-05-01] MEDS: IOPAMIDOL-370 (76%);100ML BOTTLE 50 ML IV (13:07)
[2024-05-01] MEDS: HEPARIN SODIUM,PORCINE/D5W 500 ML 15 UNIT IV (13:45)
--- NOTE | 2024-05-01 14:07 | HMH.PHAHEP ---
[facility] Pharmacy Heparin Dosing Demographic Data Admission date:: 05/01/24 Date: 05/01/24 Time: 14:07 Allergies Allergy/AdvReac Type Severity Reaction Status Date / Time oxycodone (From Percocet) AdvReac Vomiting Verified 11/22/23 08:47 Height: 1.55 m Weight: 62.142 kg Indication Medication therapy:: Heparin Current Indications:: NSTEMI, WILL SENT TO DR. BARILLAS FOR BYPASS POST HEART CATH HERE. Current Active Problems (Updated 05/01/24 @ 03:40 by Rebeca Witt RN) Chronic anxiety (Acute) Tobacco abuse (Acute) Acute non-ST elevation myocardial infarction (NSTEMI) (Acute) CVA?: No Bleeding problem?: No Kidney disease?: No ME?: Yes Desired PTT range:: 50-75 seconds Labs Anticoagulation Lab Results:: 04/30/24 05/01/24 22:47 06:10 Hgb 14.6 13.0 D Hct 42.3 37.3 Plt Count 471 H 403 Monitoring Dose Monitor 1: Date: 05/01/24 Time: 13:39 Infusion Rate:: STARTED WITH HEPARIN 1000 UNITS/HR (20 ML/HR). WEIGHT CHANGED IN COMPUTER. CHANGED TO HEPARIN 750 UNITS/HR (15 ML/HR). PATIENT HAD HEPARIN 3000 IV X1 AND UP TO ANOTHER 3000 UNITS OF HEPARIN FROM HEP SALINE DURING PROCEDURE. SPOKE WITH Nay CUBA, RECOMMENDED NO BOLUS BECAUSE OF THIS. WILL CHECK PTT AT BASELINE AND ABOUT 2 HRS POST INITIATION. Dose Monitor 2: Date: 05/01/24 Time: 15:24 PTT Result:: 58.5 Infusion Rate:: CONTINUE WITH HEPARIN 750 UNITS/HR Dose Monitor 3: Date: 05/01/24 Time: 18:51 PTT Result:: 30.6 Infusion Rate:: HEPARIN BOLUS OF 4000 UNITS, INCREASE HEPARIN RATE TO 1000 UNITS/HR. Core Measures Is INR > or = 2 at discharge?: No Most Recent Labs:: Laboratory Results - last 24 hr 04/30/24 22:47: WBC 14.6 H, RBC 4.85, Hgb 14.6, Hct 42.3, MCV 87.2, MCH 30.1, MCHC 34.5, RDW 13.2, Plt Count 471 H, MPV 10.7 H, Neut % (Auto) 43.1, Lymph % (Auto) 40.6, [place] % (Auto) 11.2 H, Eos % (Auto) 2.7, Baso % (Auto) 2.0, Neut # (Auto) 6.3, Lymph # (Auto) 5.9 H, [place] # (Auto) 1.6 H, Eos # (Auto) 0.4, Baso # (Auto) 0.3 H, D-Dimer 0.40, Sodium 137, Potassium 4.0, Chloride 104, Carbon Dioxide 23, Anion Gap 14.0, BUN 11, Creatinine 0.80, Estimated Creat Clear 78, Estimated GFR 75, Est GFR ( Amer) 90, Glucose 115 H, Calcium 8.9, Total Bilirubin 0.4, AST 34, ALT 30, Alkaline Phosphatase 137 H, Troponin I 0.05 H, Total Protein 8.0 D, Albumin 4.9, Globulin 3.1, Albumin/Globulin Ratio 1.6, HCV Ab KRIS w/Rflx PCR Qn Negative, HIV Ag/Ab Combo Qual Negative 04/30/24 23:38: SARS-CoV-2 (PCR) Not detected, Influenza A Untype (PCR) Not detected, Influenza Type B (PCR) Not detected 05/01/24 02:28: Troponin I 0.23 H 05/01/24 06:10: WBC 13.7 H, RBC 4.29, Hgb 13.0 D, Hct 37.3, MCV 86.9, MCH 30.5, MCHC 35.1, RDW 13.1, Plt Count 403, MPV 9.7, Neut % (Auto) 48.0, Lymph % (Auto) 38.1, [place] % (Auto) 9.3, Eos % (Auto) 2.6, Baso % (Auto) 1.6, Neut # (Auto) 6.6, Lymph # (Auto) 5.2 H, [place] # (Auto) 1.3 H, Eos # (Auto) 0.4, Baso # (Auto) 0.2, Sodium 135 L, Potassium 3.9, Chloride 106, Carbon Dioxide 23, Anion Gap 9.9, BUN 11, Creatinine 0.80, Estimated Creat Clear 61, Estimated GFR 75, Est GFR ( Amer) 90, Glucose 92, Calcium 9.0, Magnesium 2.2, Total Bilirubin 0.5, AST 26, ALT 24, Alkaline Phosphatase 121, Troponin I 0.16 H, Total Protein 6.5, Albumin 4.0 D, Globulin 2.5, Albumin/Globulin Ratio 1.6 If INR was < than 2.0 why was therapy stopped?: TRANSFERRED Were Heparin and Warfarin started on the same day?: No If not, why?: TRANSFERRED
--- NOTE | 2024-05-01 14:18 | P.DS_ITS ---
<Statement entered by Gregg Barth MD - 05/05/24 17:01> Rounded on patient during the day prior to nurse practitioner. Patient accepted for transfer to for CABG. Agree with plan and findings on exam. General Admission date:: 05/01/24 Discharge date: 05/01/24 HPI HPI HPI: This 53 female who is a smoker for greater than 30 years. Had an episode of where she had her chest was burning and she was short of breath.. She came to the emergency room was noted as having some ST depressions.. ER physician provided he did care also contacted cardiology. And the EKG improved with tr eatment.. For this reason the patient was ordered upon medication will be placed in the hospital and seen by cardiology in the morning with tensional for cardiac catheterization. Patient is presently stable at this time Hospital Course Hospital Course Hospital Course: Patient came in with acute coronary syndrome, stabilized were taken to Call Out Clerk next day found to have significant left main coronary artery disease requiring coronary artery bypass grafting. Patient is to be transferred to has been accepted going to [place] a room 9?1 3 4 Exam Data for Last 24 hours Vital signs and Labs for Last 24 Hours: Temp Pulse Resp BP Pulse Ox O2 Del Method 98.7 F 80 18 107/63 L 93 L Room Air 05/01/24 12:45 05/01/24 13:00 05/01/24 13:00 05/01/24 13:00 05/01/24 13:00 05/01/24 13:00 Laboratory Results - last 24 hr 04/30/24 22:47: WBC 14.6 H, RBC 4.85, Hgb 14.6, Hct 42.3, MCV 87.2, MCH 30.1, MCHC 34.5, RDW 13.2, Plt Count 471 H, MPV 10.7 H, Neut % (Auto) 43.1, Lymph % (Auto) 40.6, [place] % (Auto) 11.2 H, Eos % (Auto) 2.7, Baso % (Auto) 2.0, Neut # (Auto) 6.3, Lymph # (Auto) 5.9 H, [place] # (Auto) 1.6 H, Eos # (Auto) 0.4, Baso # (Auto) 0.3 H, D-Dimer 0.40, Sodium 137, Potassium 4.0, Chloride 104, Carbon Dioxide 23, Anion Gap 14.0, BUN 11, Creatinine 0.80, Estimated Creat Clear 78, Estimated GFR 75, Est GFR ( Amer) 90, Glucose 115 H, Calcium 8.9, Total Bilirubin 0.4, AST 34, ALT 30, Alkaline Phosphatase 137 H, Troponin I 0.05 H, Total Protein 8.0 D, Albumin 4.9, Globulin 3.1, Albumin/Globulin Ratio 1.6, HCV Ab KRIS w/Rflx PCR Qn Negative, HIV Ag/Ab Combo Qual Negative 04/30/24 23:38: SARS-CoV-2 (PCR) Not detected, Influenza A Untype (PCR) Not detected, Influenza Type B (PCR) Not detected 05/01/24 02:28: Troponin I 0.23 H 05/01/24 06:10: WBC 13.7 H, RBC 4.29, Hgb 13.0 D, Hct 37.3, MCV 86.9, MCH 30.5, MCHC 35.1, RDW 13.1, Plt Count 403, MPV 9.7, Neut % (Auto) 48.0, Lymph % (Auto) 38.1, [place] % (Auto) 9.3, Eos % (Auto) 2.6, Baso % (Auto) 1.6, Neut # (Auto) 6.6, Lymph # (Auto) 5.2 H, [place] # (Auto) 1.3 H, Eos # (Auto) 0.4, Baso # (Auto) 0.2, Sodium 135 L, Potassium 3.9, Chloride 106, Carbon Dioxide 23, Anion Gap 9.9, BUN 11, Creatinine 0.80, Estimated Creat Clear 61, Estimated GFR 75, Est GFR ( Amer) 90, Glucose 92, Calcium 9.0, Magnesium 2.2, Total Bilirubin 0.5, AST 26, ALT 24, Alkaline Phosphatase 121, Troponin I 0.16 H, Total Protein 6.5, Albumin 4.0 D, Globulin 2.5, Albumin/Globulin Ratio 1.6 I & O for Last 24 hours: Intake & Output 04/28/24 04/29/24 04/30/24 05/01/24 23:59 23:59 23:59 23:59 Weight 61.689 kg 62.142 kg Results Data Completed and Pending Labs on day of discharge: Labs from last 24 hours 05/01/24 05/01/24 04/30/24 06:10 02:28 23:38 WBC 13.7 H RBC 4.29 Hgb 13.0 D Hct 37.3 MCV 86.9 MCH 30.5 MCHC 35.1 RDW 13.1 Plt Count 403 MPV 9.7 Neut % (Auto) 48.0 Lymph % (Auto) 38.1 [place] % (Auto) 9.3 Eos % (Auto) 2.6 Baso % (Auto) 1.6 Neut # (Auto) 6.6 Lymph # (Auto) 5.2 H [place] # (Auto) 1.3 H Eos # (Auto) 0.4 Baso # (Auto) 0.2 D-Dimer Sodium 135 L Potassium 3.9 Chloride 106 Carbon Dioxide 23 Anion Gap 9.9 BUN 11 Creatinine 0.80 Estimated Creat Clear 61 Estimated GFR 75 Est GFR ( Amer) 90 Glucose 92 Calcium 9.0 Magnesium 2.2 Total Bilirubin 0.5 AST 26 ALT 24 Alkaline Phosphatase 121 Troponin I 0.16 H 0.23 H Total Protein 6.5 Albumin 4.0 D Globulin 2.5 Albumin/Globulin Ratio 1.6 SARS-CoV-2 (PCR) Not detected HCV Ab KRIS w/Rflx PCR Qn HIV Ag/Ab Combo Qual Influenza A Untype (PCR) Not detected Influenza Type B (PCR) Not detected 04/30/24 22:47 WBC 14.6 H RBC 4.85 Hgb 14.6 Hct 42.3 MCV 87.2 MCH 30.1 MCHC 34.5 RDW 13.2 Plt Count 471 H MPV 10.7 H Neut % (Auto) 43.1 Lymph % (Auto) 40.6 [place] % (Auto) 11.2 H Eos % (Auto) 2.7 Baso % (Auto) 2.0 Neut # (Auto) 6.3 Lymph # (Auto) 5.9 H [place] # (Auto) 1.6 H Eos # (Auto) 0.4 Baso # (Auto) 0.3 H D-Dimer 0.40 Sodium 137 Potassium 4.0 Chloride 104 Carbon Dioxide 23 Anion Gap 14.0 BUN 11 Creatinine 0.80 Estimated Creat Clear 78 Estimated GFR 75 Est GFR ( Amer) 90 Glucose 115 H Calcium 8.9 Magnesium Total Bilirubin 0.4 AST 34 ALT 30 Alkaline Phosphatase 137 H Troponin I 0.05 H Total Protein 8.0 D Albumin 4.9 Globulin 3.1 Albumin/Globulin Ratio 1.6 SARS-CoV-2 (PCR) HCV Ab KRIS w/Rflx PCR Qn Negative HIV Ag/Ab Combo Qual Negative Influenza A Untype (PCR) Influenza Type B (PCR) DS: Diagnosis Discharge Diagnosis (1) Acute non-ST elevation myocardial infarction (NSTEMI): Status: Acute Code(s): I21.4 - Non-ST elevation (NSTEMI) myocardial infarction (2) Tobacco abuse: Status: Acute Code(s): Z72.0 - Tobacco use Meds Home Medications and Allergies Home Medications ?Medication ?Instructions ?Recorded ?Confirmed ?Type citalopram 40 mg tablet 40 mg PO DAILY 12/23/23 05/01/24 History primidone 50 mg tablet 50 mg PO BID 12/23/23 05/01/24 History propranolol 20 mg tablet 20 mg PO BID 12/23/23 05/01/24 History bupropion HCl 300 mg 24 hr tablet, 300 mg PO DAILY 05/01/24 05/01/24 History extended release hydroxyzine HCl 10 mg tablet 10 mg PO Q8HP PRN Anxiety 05/01/24 05/01/24 History ipratropium 20 mcg-albuterol 100 1 puff inhalation QID 05/01/24 05/01/24 History mcg/actuation mist for inhalation (Combivent Respimat) New Prescriptions to Start Prescriptions: Allergies Allergy/AdvReac Type Severity Reaction Status Date / Time oxycodone (From Percocet) AdvReac Vomiting Verified 11/22/23 08:47 Discharge Plan Disposition Patient Disposition: Xfer Short-Term Hosp Condition: Undetermined Discharge Order Discharge Orders: Discharge Order (Routine); Ordered 05/01/24 Ordered By: Matt Camacho Follow up Plan Prescriptions/Medication Reconciliation: No Action primidone 50 mg tablet 50 mg PO BID Patient Comments: TAKE 1 TABLET BY MOUTH TWICE DAILY FOR 90 DAYS citalopram 40 mg tablet 40 mg PO DAILY Patient Comments: TAKE 1 TABLET BY MOUTH ONCE DAILY FOR 90 DAYS propranolol 20 mg tablet 20 mg PO BID Patient Comments: TAKE 1 TABLET BY MOUTH TWICE DAILY hydroxyzine HCl 10 mg tablet 10 mg PO Q8HP PRN (Reason: Anxiety) Patient Comments: TAKE 1 TABLET BY MOUTH EVERY 8 HOURS NEEDED FOR 15 DAYS bupropion HCl 300 mg tablet extended release 24 hr 300 mg PO DAILY Patient Comments: TAKE 1 TABLET BY MOUTH EVERY 24 HOURS Combivent Respimat 20-100 mcg/actuation mist 1 puff INHALATION QID Patient Comments: INHALE 1 PUFF BY MOUTH 4 TIMES DAILY Problem Reconciliation Problems Reviewed?: Yes Patient Discharge Instructions Stand Alone Forms: Transfer Record Patient Instructions: Acute Coronary Syndrome, All Forms of Smoking Are Bad for You Print Language: Maltese Providers Primary Care Provider: Provider,Referral Admit Provider: Saul Morrell Attending Provider: Saul Morrell
[2024-05-01 14:40] LABS: PTT Heparin (inpatient only) 73.3 Seconds (50-75)
[2024-05-01 15:49] LABS: PTT Heparin (inpatient only) 58.5 Seconds (50-75)
--- NOTE | 2024-05-01 17:27 | PC.NURSE ---
patient is a/o x4, remains on RA tolerating well. patient stated she feels a little bit better today. Heparin drip at 15mls/hr, pending [facility] transfer. when taking radial band off patient had a scant amount of blood, radial band reapplied and 2ml air injected. patient ambulated to the bathroom via standby assist. patient stated she started to feel anxious after talking to MD, notified MD, new orders received. patient currently sitting up in bed eating dinner, family at bedside, call light within reach.
[2024-05-01] MEDS: hydrOXYzine pamoate 25MG CAPSULE 25 MG PO (17:43)
[2024-05-01 18:33] LABS: PTT Heparin (inpatient only) 30.6 Seconds (50-75)
--- NOTE | 2024-05-01 18:51 | PC.NURSE ---
notified of critical PTT of 30.6, pharmacy notified, new orders received.
--- NOTE | 2024-05-01 18:52 | PC.NURSE ---
radial band removed and sterile dressing applied at 1730. dressing C/D/I
[2024-05-01] MEDS: HEPARIN SODIUM 5,000 UNIT/ML VIAL 4000 UNIT IV (19:18)
[2024-05-01] MEDS: HEPARIN SODIUM,PORCINE/D5W 500 ML 20 UNIT IV (19:19)
[2024-05-01] MEDS: PANTOPRAZOLE 40MG TABLET 40 MG PO (20:15)
--- NOTE | 2024-05-01 20:35 | PC.NURSE ---
received call from . Pt has a bed assignment. Going to [facility], [facility], [address] extended recovery unit, Rm [phone]. #to call report. [phone].
--- NOTE | 2024-05-01 20:43 | P.SWB_ITS ---
<Statement entered by Gregg Barth MD - 05/01/24 22:23> Rounded on patient multiple times during the day. After heart cath, found to have critical left main disease with dominant left circumflex. Discussed case with MDs. Accepted for transfer to CT surgery. Patient on heparin drip after heart cath. Had been loaded with 600 of Plavix and 325 of aspirin prior to cath. Chest pain resolved. Hemodynamically stable. On room air. Discharge/Transfer Plan of Care Resident has been informed of condition and prognosis?: Yes Mobility Status: ambulatory with assistance Goal for planned treatment course: Patient requiring coronary artery bypass g rafting Rehab Potential: Good I concur with the most recent History & Physical: Yes Date of most recent H & P: 05/01/24 If no, indicate changes: [address] [facility] [address] [place] [address] D Certification: I have reviewed and agree with this resident's plan of care. I certify that post-hospital alf facility services are required to be given on an inpatient basis because of the need for alf care on a continuing basis for the condition(s) for which he/she is receiving inpatient hospital services prior to admission to swing bed. I also certify that the resident meets existing SNF level of care definition.
--- NOTE | 2024-05-01 20:43 | EXP.DCTXFER ---
Discharge/Transfer Plan of Care Resident has been informed of condition and prognosis?: Yes Mobility Status: ambulatory with assistance Goal for planned treatment course: Patient requiring coronary artery bypass grafting Rehab Potential: Good I concur with the most recent History & Physical: Yes Date of most recent H & P: 05/01/24 If no, indicate changes: [place] [id number] [place] [address] [place] [id number] D Certification: I have reviewed and agree with this resident's plan of care. I certify that post-hospital alf facility services are required to be given on an inpatient basis because of the need for alf care on a continuing basis for the condition(s) for which he/she is receiving inpatient hospital services prior to admission to [facility] bed. I also certify that the resident meets existing SNF level of care definition.
--- NOTE | 2024-05-01 21:01 | PC.NURSE ---
attempted to call report to [facility] @2035 and @2100. States they will call back.
--- NOTE | 2024-05-01 21:17 | PC.NURSE ---
report called to Jasmin KAUFFMAN at
[2024-05-01] MEDS: LORazepam 2MG/ML VIAL 1 MG IV (21:52)
--- OUTSIDE RECORDS SUMMARY | 2024-05-24 13:42 | XMS_ITS | Data Portability ---
Author Organization [facility], [facility] [place] Address [address] [place] [address] Assessment No assessment recorded. Plan of Treatment Reminders Order Date Submit Date Provider Last Modified By Organization Details Last Modified Time Details Appointments None record ed. Lab None record ed. Referral None record ed. Procedures None record ed. Surgeries None record ed. Imaging None record ed. Medication Orders None record ed. Patient TargetsNo targets recorded. Patient InstructionsNo instructions recorded. Reason for Referral None Reported. Procedures Surgical History Date Name Laterality Status Provider Name and Address Organization Details Recorded Time Shoulder Surgery completed [facility] 12/10/2021 16:40:07 section completed [facility] 12/10/2021 16:40:17 Imaging Results None recorded. Procedure Notes None recorded. Medical Equipment None Reported. Allergies No known drug allergies Medications Name Sig Start Date Stop Date Status Note LastModified by Organization Details LastModified Time cyclobenzap rine 10 mg tablet TAKE 1 TABLET BY MOUTH EVERY 8 HOURS NEEDED FOR MUSCLE SPASMS active Not Available Not Available No t Available methocarbam ol 500 mg tablet TAKE 1 TABLET BY MOUTH TWICE DAILY NEEDED FOR MUSCLE SPASM active Not Available Not Available No t Available primidone 50 mg tablet TAKE UP TO 2 TABLETS BY MOUTH THREE TIMES DAILY active Not Available Not Available No t Available nystatin 100,000 unit/mL oral suspension USE 5 ML 4 TIMES DAILY FOR 14 DAYS active Not Available Not Available No t Available citalopram 40 mg tablet TAKE 1 TABLET BY MOUTH ONCE DAILY active Not Available Not Available No t Available ondansetron HCl 4 mg tablet TAKE 1 TABLET BY MOUTH ONCE DAILY 12/10 completed Not Available Not Available Not Available clonazepam 0.5 mg tablet TAKE 1 TABLET BY MOUTH AT BEDTIME active Not Available Not Available No t Available citalopram 20 mg tablet TAKE 1 TABLET BY MOUTH ONCE DAILY FOR 7 DAYS, THEN TAKE 1/2 (ONE-HALF ) TABLET BY MOUTH ONCE DAILY FOR 7 DAYS 12/10 completed Not Available Not Available Not Available gabapentin 300 mg capsule TAKE 1 CAPSULE BY MOUTH AT BEDTIME active Not Available Not Available No t Available methylpredn isolone 4 mg tablets in a dose pack TAKE DIRECTED ON PACKAGE 12/10 completed Not Available Not Available Not Available propranolol 20 mg tablet TAKE 1 TABLET BY MOUTH TWICE DAILY active Not Available Not Available No t Available ondansetron 4 mg disintegrat ing tablet DISSOLVE 1 TABLET IN MOUTH EVERY 6 HOURS NEEDED FOR 7 DAYS 12/10 completed Not Available Not Available Not Available Vitals Date Recorded Body height Body mass index (BMI) Body weight Body temperature Oxygen saturation Oxygen saturation in Arterial blood by Pulse oximetry Heart rate Systolic blood pressure Diastolic blood pressure Provider Name and Address Organization Details Last Updated DateTime 2 162.56 cm 23.5 kg/m2 51206.4 4 g 96.9 [degF] 97 % 97 % 85 /min 112 mm[Hg] 60 mm[Hg] Corinne Tang [facility] [place] 13:30:57 Social History Question Answer Notes LastModified by Organizat ion Details LastModified Time Tobacco Smoking Status Current Every Day Smoker Corinne Tang [facility], [facility] [place] 12/10/2021 16:39:59 How Much Tobacco Do You Smoke? 1 PPD [email or web address] Information not available 12/10/2021 Sex: Unknown Functional Status None recorded. Mental Status None recorded. Family History Relationship Description Onset Age of this Age Resolved Age Notes LastModified by Organization Details LastModified Time Mother Motor vehicle accident deceas ed [email or web address] Not available 12/10/2021 16:39:24 Father Heart disease [email or web address] Not available 2021 16:39:42 Father Hyperlipidem ia [email or web address] Not available 2021 16:39:50 Medical History Condition Response Anxiety/Depression Y Gynecological HistoryNo gynecological history recorded. Obstetrics History GPAL:G 0 P 0 0 0 0 Past Encounters Encounter ID Performer Location Encounter Start Date Encounter Closed Date Diagnosis/Indication Diagnosis SNOMED-CT Code Diagnosis ICD10 Code Diagnosis Note [id number] Juany Mathews MD [facility] [address] [facility],[place] [address] 12/14/2021 13:22:57 12/14/2021 15:21:02 Essential tremor 191781098 G25.0 tremor has been under relatively good control with combinatio n of primidone and Inderal, we will watch her hair loss closely, it may be related to her recent COVID infection but if it is related to Inderal in may need to consider gradually weaning this off. Periodic l eg movements of sleep 574221785 G47.61 Periodic leg movements are under relatively good control with combinatio n of gabapentin as well as Klonopin. Would like to continue this for now. Health Concerns Section Related Observation LastModified by Organization Detai ls LastModified Time None Recorded Concern Status LastModified by Organization Details LastModified Time None Recorded Advance Directives Directive None Recorded Payers Encounter Date Sequence Insurance Name Policy Number Policy Doll Covered Member ID Doll Member ID Guarantor Name 12/14/2021 1 [facility] (MEDICAID REPLACEMENT - HMO) Rere Reese [id number] Rere Reese Notes Date Note Type Note Provider Name and Address Organization Details Recorded Time 12/14/2021 text/html Patient follows up today, longstanding history of essential tremor which has been very aggravating to her. This mostly affects her hands and her head and neck area. 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 She is on a combination of primidone and propranolol . In addition patient has significant findings of restless leg syndrome and has been using gabapentin 300 mg 1-2 tablets at bedtime as well as p.r.n. Klonopin. This combination has been helpful for her and she has been getting relatively good rest. Patient recently had COVID, and feels that subsequently hair loss has been more pronounced. Were concerned about the possibility of propranolol causing hair loss we have decreased the dose and she has an 20 mg twice a day. Juany Mathews MD [address] [place] [address], [phone], [facility] 12/14/2021 15:11:09 OBGyn Episode No OBEpisode recorded.
== END 2024-05-01 21:55 | disposition short-term general hospital (02) | DRG 282 ==
LOC: ER 05-01 00:04 → 2ND 05-01 02:29
PROVIDERS: Internal Medicine; Nurse Practitioner Family; Physician Assistant; Student in an Organized Health Care Education/Training Program; Admitting Provider Student in an Organized Health Care Education/Training Program; Emergency Provider Emergency Medicine; Visit Provider Student in an Organized Health Care Education/Training Program
PROC: B2111ZZ Fluoroscopy of Multiple Coronary Arteries using Low Osmolar Contrast (ICD-10-PCS; principal; 2024-05-01 12:00)
DX: I21.4 Non-ST elevation (NSTEMI) myocardial infarction (principal); I25.10 Atherosclerotic heart disease of native coronary artery without angina pectoris; F17.210 Nicotine dependence, cigarettes, uncomplicated; Z79.899 Other long term (current) drug therapy; Z90.49 Acquired absence of other specified parts of digestive tract; Z82.49 Family history of ischemic heart disease and other diseases of the circulatory system; Z82.0 Family history of epilepsy and other diseases of the nervous system; Z87.09 Personal history of other diseases of the respiratory system; Z88.5 Allergy status to narcotic agent
CPT/HCPCS: 36415; 71045; 80053; 83735; 84484; 85025; 85378; 85730; 86803; 87389; 87636; 93005; 93306; 93454; 99152; 99291; C1725; C1769; J1200; J1644; J1650; J2060; J2250; J3010; Q9967

== ENCOUNTER 2024-07-21 18:25 | Inpatient (IN) | payer MEDICAID, SELFPAY ==
--- OUTSIDE RECORDS SUMMARY | 2024-05-01 23:01 | XMS_ITS | Encounter Summary ---
Author Organization Healthcare Address [address] [place] [address] Care Team Providers Care Pressure Control Supervisor Name Role Phone Pcp, No Primary Care Provider Unavailabl e Reason for Referral * Consultation (Routine) - Authorized Specialty Diagnoses / Procedures Referred By Contac t Referred To Contact Cardiac Rehabilitation Diagnoses S/P CABG x 4 Maite Austin MD [address] [address] Phone: tel: fax: [facility] Cardiac Rehabilitation [address], [address] [place] [address] Phone: tel: fax: Referral ID Status Reason Start Date Expiration Date V isits Requested Visits Authorized [id number] Authorized 06/21/2024 12/21/2025 1 1 * Consultation (Routine) - Authorized Specialty Diagnoses / Procedures Referred By Contac t Referred To Contact Diagnoses S/P colon resection Trinity Yousif S, AUTOMOTIVE PORTER [address] [facility] [address] [place] [address] Phone: tel: fax: Lidia Troncoso MD [address] [facility] [address] [place] [address] Phone: tel: fax: Referral ID Status Reason Start Date Expiration Date Visits Requested Visits Authorized [id number] Authorized Specialty Services Required 06/21/2024 12/21/2025 1 1 Scheduling Instructions Follow up 4-6 weeks * Home Health (Routine) - Authorized Specialty Diagnoses / Procedures Referred By Contac t Referred To Contact Home Health Services / Case Management Diagnoses S/P CABG x 4 Maite Austin MD [address] Phone: tel: fax: Referral ID Status Reason Start Date Expiration Date Visits Requested Visits Authorized [id number] Authorized Specialty Services Required 06/19/2024 12/19/2025 999 999 * Home Health (Routine) - Authorized Specialty Diagnoses / Procedures Referred By Contac t Referred To Contact Home Health Services / Case Management Diagnoses S/P CABG x 4 Maite Austin MD [address] [phone] Phone: tel: fax: Referral ID Status Reason Start Date Expiration Date Visits Requested Visits Authorized [id number] Authorized Specialty Services Required 06/15/2024 12/15/2025 999 999 * Consultation (Routine) - Authorized Specialty Diagnoses / Procedures Referred By Contact Referred To Contact Interventional Radiology Diagnoses Abdominal fluid collection Maite Austin MD [address] [address] Phone: tel:[phone] fax:[phone] [facility] [address] [place] [address] Phone: tel: Referral ID Status Reason Start Date Expiration Date Visits Requested Visits Authorized [id number] Authorized Specialty Services Required 06/04/2024 12/04/2025 1 1 * Consultation (Routine) - Authorized Specialty Diagnoses / Procedures Referred By Kathe deutsch Referred To Contact Cardiac Rehabilitation Diagnoses CAD, multiple vessel Maite Austin MD [address] [place] [phone] Phone: tel: fax: [facility] Cardiac Rehabilitation [address], [address] [place] [address] Phone: tel: fax: Referral ID Status Reason Start Date Expiration Date V isits Requested Visits Authorized [id number] Authorized 05/06/2024 11/05/2025 1 1 Reason for Visit * Auth/Cert (Routine) Specialty Diagnoses / Procedures Referred By Kathe deutsch Referred To Contact Diagnoses CAD, multiple vessel Acute NSTEMI, Left main stenosis, CAD Edson Mcclure, [address] [place] [address] Phone: tel: fax: [facility] [address] [place] [address] Referral ID Status Reason Start Date Expiration Date Visits Re quested Visits Authorized [id number] 1 1 Encounter Details Date Type Department Care Team (Latest Contact Info) Description 05/01/2024 11:01 PM EDT - 06/21/2024 3:41 PM EDT Hospital Encounter [facility]patient [address] [place] [id number] Edson Mcclure DO [address] [place] [address] Erum Bahena MD [address] [phone] Maite Austin MD [address] [place] [address] S/P colon resection (Primary Dx); CAD, multiple vessel; Cardiac volume overload; S/P CABG x 4; Colon perforation (CMS/HCC); Abdominal fluid collection Discharge Disposition: Home or Self Care Social History Tobacco Use Types Packs/Day Years Used Date Smoking Tobacco: Every Day Cigarettes Smokeless Tobacco: Never Alcohol Use Standard Drinks/Week Comments Not Currently 0 (1 standard drink = 0.6 oz pur e alcohol) Humiliation, Afraid, Rape, and Kick questionnair e Answer Date Recorded Within the last year, have y ou been afraid of your partner or ex-partner? No 05/02/2024 Within the last year, have y ou been humiliated or emotionally abused in other ways by your partner or ex-partner? No Within the last year, have y ou been kicked, hit, slapped, or otherwise physically hurt by your partner or ex-partner? No 05/02/2024 Within the last year, have y ou been raped or forced to have any kind of sexual activity by your partner or ex-partner? No 05/02/2024 PHQ-2 Answer Date Recorded Patient Health Questionnaire-2 Score 0 06/28/2023 Hunger Vital Sign Answer Date Recorded Within the past 12 months, y ou worried that your food would run out before you got the money to buy more. Never true 05/03/19 25 Within the past 12 months, t he food you bought just didn't last and you didn't have money to get more. Never true 05/02/2024 PRAPARE - Transportation Answer Date Re corded In the past 12 months, has l ack of transportation kept you from medical appointments or from getting medications? No 04/14 In the past 12 months, has l ack of transportation kept you from meetings, work, or from getting things needed for daily living? No 05/02/2024 Housing Stability Vital Sign Answer Aguilar e Recorded In the last 12 months, was t here a time when you were not able to pay the mortgage or rent on time? No 05/02/2024 Number of Times Moved in the Last Year Not on fi le 05/02/2024 At any time in the past 12 m [facility], were you homeless or living in a care home (including now)? No 05/02/2024 Utilities Answer Date Recorded In the past 12 months has th e electric, gas, oil, or water company threatened to shut off services in your home? Yes 05/02/2024 PHQ-2A Answer Date Recorded Patient Health Questionnaire-2 Score 2 01/18/2023 Comments Unknown Sex and Gender Information Value Date Recorded Sex Assigned at Not on file Legal Sex Female 8:00 PM EDT Gender Identity Not on file Sexual Orientation Not on file documented as of this encounter Last Filed Vital Signs Vital Sign Reading Time Taken Comments Blood Pressure 101/62 06/21/2024 11:35 AM EDT Pulse 96 06/21/2024 11:35 AM EDT Temperature 36.5 C (97.7 F) 06/21/2024 11:31 AM EDT Respiratory Rate 18 06/21/2024 11:3 5 AM EDT Oxygen Saturation 98% 06/21/2024 11: 35 AM EDT Inhaled Oxygen Concentration - - Weight 52.1 kg (114 lb 13.8 oz) 06/21/2024 3:00 AM EDT Height 154.9 cm (5' 0.98 ) 06/19/2024 1 2:00 PM EDT Body Mass Index 21.71 06/19/2024 12:00 PM EDT documented in this encounter Functional Status * Calculated C-SSRS Risk Score (Lifetime/Recent) Answer Date of Assessment Author No Risk Indicated 06/19/2024 8:00 PM EDT Brunilda Dawson RN * Question Answer Date of Assessment Author 1. Wish to be (Past 1 Month) No 06/19/2024 8:00 PM EDT Brunilda Dawson RN 2. Non-Specific Active Suici erica Thoughts (Past 1 Month) No 06/19/2024 8:00 PM EDT Earnest Dawson RN 6. Suicidal Behavior (Lifetime) No 8:00 PM EDT Brunilda Dawson RN documented as of this encounter Discharge Instructions * Discharge Instructions* Stefany Edwards, AUTOMOTIVE PORTER - 06/04/2024 10:49 AM EDT Accordion Drain Care - Vascular & Interventional Radiology (VIR) *If patient is discharged with IR-placed drain, primary floor/bedside RN to educate patient/family on drain care and provide the following supplies (per drain) to patient at discharge. *If any supply is not available in floor stock, contact [phone]. *Saline flushes can be supplied via Meds to Beds. About the accordion drainage system This drain helps remove fluid from a wound or from a space in your body. The tube stays in until the fluid slows down. The bag has a 1-way valve at the top. This keeps air and fluid out of the wound. Empty the bag at least once a day (at the same time each day) or any time it is full. Supplies you will take home Before you to home, we will give you these supplies (for each drain): 30 saline flushes (10 ml each) 30 alcohol pads 8 split dressing gauze 8 Tegaderm dressing (if not allergic) Medical tape (if not allergic) Extra drainage bag for each drain 2 stopcock valves 8 saline lock caps Graduated cylinder (1 per drain) Printed drainage log How to care for the drain Flush the drain with 10 ml normal saline every 12 hours. Check it each day. Record input and output on the Drainage Log. Track how much saline you flush in and how much fluid comes out. Try to do this at the same time each day. Take the Log with you to your follow-up visit. Use accordion suction - follow our instructions. Once the output is less than 10 ml a day for 48 hours, it may be time to take out the drain. Contact the VIR Clinic at [phone], or discuss at your next follow-up visit. Clean the drain site at least once a week, or if it gets wet or dirty. Use warm soapy water and a clean cloth. Let it completely air dry before putting on a clean dressing. Apply a new dry dressing around the drain site. A large IV dressing should work best. Check your skin. If the skin near the drain is red or itchy, clean the area more often until it gets better. For example, clean the site twice a day. Attach the drain tube to your skin to keep it in place. Do this whether or not it is stitched in place. Keep the drain system dry. Follow up with [facility] at [phone] for appointments or questions. Follow the [id number] directions in the Flushable Drain Care handout. These directions will be printed and given to you before you leave the hospital. How to empty the drain Wash your hands thoroughly with soap and water. Unpin the drain from your clothes. Make sure it hangs below the drain site. Empty the drain bag. Pour fluid into a measuring container. Write the amount of drainage on your Log. If you have more than 1 drain, track them on separate sheets. Total the daily drainage at the same time each day or night. Bring all your Drainage Logs to your next clinic visit. Do not let the emptying valve touch the container or any other surface. This helps prevent infection. Measure the fluid, then pour it into the toilet. Gently squeeze air out of the bag and close it. Pin the drain back onto your clothes to keep it from being pulled out. Wash your hands after emptying drainage. This helps prevent infection. Squeeze the accordion to get the fluid draining. Once it is full, repeat these steps. Follow up and other appointments with the [facility] First follow-up visit. We will call you to schedule a follow-up visit with the Vascular and Interventional Radiology Clinic. You should be seen in our clinic within 2 weeks after leaving the hospital. If you have not been contacted to schedule this appointment, please contact the [facility] Clinic at [phone]. To schedule or reschedule a clinic visit, call [phone]. To reschedule a procedure, call our schedulers at [phone], option 4. [facility] location and phone number V[facility] Inter[facility] Radiology [facility], 1st floor [address], [address] [place], [place] [phone] In case of emergency For any emergency, please go to the nearest Emergency Room or dial [phone]. If you have questions or concerns about the drain Tuesday-Tuesday, 8 a.m.-4:30 p.m., call the [facility] at [phone]. After hours, weekends, and holidays, call [phone]. Ask for the Interventional Radiology provider relocation director. Drainage Log You must keep a daily log of your drain output. Each day, log the output from drain. Remember to subtract the amount of saline injected into catheter. Bring this log to your follow-up visits. Your name: Date Time Volume (in mL) Color of drainage Notes SGE Discharge Instructions: Activity: - Walking and climbing stairs is ok and encouraged. You should refrain from any strenuous activity/exercise until your follow up appointment. - No lifting anything >5-10lbs for the next 6 weeks. - You may not drive while taking narcotics. Dressing: - You may shower. Let the soapy water run over your incisions. Do not scrub at your incisions. After you shower, pat your incisions dry with a clean towel. - You have sheridan across your incision. These will be removed in clinic at your follow up appointment. Drain Care: - You should flush the drain two times per day with 10ml saline. Clamp the tube and then flush [id number] normal saline. Then unclamp the tube to allow for drainage. Empty bag daily and bring totals with you to clinic. - You have a LENA drain. You should empty this daily and record the output. Bring totals with you to clinic. Be sure to return bulb to suction. Potential Issues: - It is normal to have some pain and soreness, especially around the incisions - A small amount of clear drainage from the incision may be expected, call the office if the drainage becomes bloody, purulent (pus), or foul-smelling - Call the office if you start to have increased redness, drainage, swelling, or increased pain around your incision - Call the office if you have a fever greater than 101 F - Call the office if you have severe abdominal discomfort, nausea and vomiting, or feeling unwell Follow Up: - You will be scheduled with Dr. Mancuso in 2 weeks after discharge - You will follow up with Dr. Troncoso 4-6 weeks after discharge Questions or Concerns and Appointments For appointments please call our General Surgery Clinic at [phone]. If there are questions or concerns after discharge from the hospital, call Leola Montano, Nurse Coordinator between 7am-3pm at [phone]. If it is after hours, weekends, and holidays please call [phone] and ask for the resident relocation director for Emergency General Surgery. Medication requests should be made between the hours of 9:00 AM to 3:00 PM Tuesday thru Tuesday. Please note that based upon recent changes to [place] law related to prescribing opioid pain medications, our providers will not provide refills on controlled medications after your hospital discharge following a major surgery or trauma. [place] 218[place], [place] 201 KAR9:260. documented in this encounter Medications at Time of Discharge acetaminophen (Tylenol) 500 MG tablet Take 2 tablets by mouth every 6 hours as needed for pain, headaches or fever. 100 tablet 06/21/2024 buPROPion XL (Wellbutrin XL) 300 MG 24 hr tablet take 1 tablet by mouth every 24 hours 04/20/2024 citalopram (CeleXA) 40 MG tablet Take 1 tablet by mouth. 12/30/2022 Combivent Respimat 20-100 MCG/ACT inhaler 03/07/2023 fluticasone (Flonase) 50 MCG/ACT nasal spray Administer 2 sprays into each nostril daily as needed. 12/24/2023 hydrOXYzine HCl (Atarax) 10 MG tablet Take 1 tablet (10 mg) by mouth every 8 hours as needed. loratadine (Claritin) 10 MG tablet Take 1 tablet (10 mg) by mouth daily. methocarbamol (Robaxin) 500 MG tablet Take 2 tablets by mouth 4 times a day for 10 days. 80 tablet 06/21/2024 metoprolol tartrate (Lopressor) 25 MG tablet Take 1 tablet by mouth 2 times a day. 60 tablet 2 06/21/2024 6 primidone (Mysoline) 50 MG tablet Take 1 tablet (50 mg) by mouth every 12 (twelve) hours. rosuvastatin (Crestor) 40 MG tablet Take 1 tablet by mouth nightly. 30 tablet 2 06/21/2024 6 simethicone (Mylicon) 80 MG chewable tablet Chew 1.5 tablets 4 times a day. 30 tablet 06/21/2024 naloxone (Narcan) 4 mg/0.1 mL nasal spray 1. Give 1 spray in nostril for no/slow breathing or cannot wake after opioid use 2. Call 911 3. Repeat in other nostril if symptoms continue 1 each 06/21/2024 oxyCODONE (Roxicodone) 5 MG immediate release tablet Take 1 tablet by mouth every 8 hours as needed for severe pain for up to 3 days. 9 tablet 06/21/2024 5 aspirin 81 MG chewable tablet Chew 1 tablet daily. 30 tablet 2 06/22/2024 5 documented as of this encounter Miscellaneous Notes * Progress Notes - Alissa Perez - 06/21/2024 1:34 PM EDT Inpatient Cardiac Rehab Assessment Patient Name: Rere Hunter Today's Date: 06/21/2024 Subjective: Ms. Hunter qualifies for outpatient cardiac rehab due to recent CABG. I/R/P: Rere Hunter qualifies for outpatient cardiac rehab. Ms. Hunter will also have outpatient PT/ OT referral and can attend cardiac rehab after that is complete. Referral will be sent to [facility] to her home, [facility]. She is aware that [place] will contact her to discuss andschedule. Cardiac Rehabilitation Program Referral 1. Participation in a Phase II cardiac rehabilitation program is recommended. Patient was informed about what cardiac rehabilitation has to offer and why it is beneficial. The plan of care for the rehabilitation program consists of risk factor modification, monitored and supervised exercise and assistance in the recovery process with ongoing education and support. Patient is patient interested incardiac rehab?: may be interested in attending a cardiac rehabilitation program. 2. Eligibility: CABG 3. Exceptions/exclusions: [facility] Cardiac Rehab Exclusions: None 4. Referral: [facility] Cardiac Rehab Referral: Patient will consider participating in a cardiac rehabilitation program. Patient was provided with contact information for the following program(s) for consideration: [facility] [place] - [phone]. 5. Information sent: Information Sent: Appropriate information will be sent to the receiving cardiac rehabilitation program.: * Progress Notes - Annika Perez RN - 06/21/2024 12:44 PM EDT Case Management Discharge Note Rere Hunter 53 y.o. female CSN: [id number] Admission: 05/01/2024 11:01 PM Primary Problem: CAD, multiple vessel Primary Integrated Marketing Intern: Primary Caregiver: Self Assistance Available at Discharge: Availability of Care Givers (#Hours): No assistance needed Family/Integrated Marketing Intern(s) Willingness Assessed to care for patient at home: Yes Family/Integrated Marketing Intern(s) Readiness Assessed to care for patient at home: Yes Housing Circumstances-Z Codes: Housing Circumstances (select all that apply): None Applicable Patient Referred to Financial or Community Resources: Financial Resources: Other (Comment) (n/a) Discharge Facility/Level of Care Needs: Discharge Facility/Level of Care Needs: 1-Home or Self Care Patient's Choice of Community Agency(s): Patient's Choice of Community Agency(s): n/a Patient/Family Anticipated Services at Transition: Patient/Family Anticipated Services at Transition: durable medical equipment DME/Equipment Needed after Discharge: Equipment Currently Used at Home: none Equipment Needed After Discharge: walker, rollator Readmission Within the Last 30 Days: Readmission Within the Last 30 Days: no previous admission in last 30 days Medicare Documentation: Medicare Second Notice?: No Follow-up: [facility] [address], [address] [facility] [address] [facility] Card[facility] Specialty [facility] [address] [address] Go on 08/02/2024 Your appointment time is 2pm Please arrive 15 minutes early and bring bottles of medications. [facility] [address] [facility] [address] Lidia Troncoso MD [address] [facility] [address] Discharge Transportation: Transportation Anticipated: family or friend will provide Transportation Home at Discharge: Family/Friend will Provide Follow Up Transport: Transportation Needed to Follow up Appoinments: Family/Friend will Provide Additional Comments: Per primary team patient is medically ready for discharge. CM confirmed rollator in room, and that [facility] will deliver her ostomy supplies. Cm sent referral to [facility] for wound dressings, but was denied. Patient has outpatient script for PT/OT. Patient agreeable with discharge plan. No CM/SW needs identified. Family to transport and assist upon discharge. Annika Perez RN * Can KelleyJAMISON - DoctorAmy RN - 06/21/2024 12:27 PM EDT Images from the original note were not included. [id number] Naloxone Nasal [place] Brand Name(s): Kloxxado??, Narcan??, Rezenopy??; also available generically WHY is this medicine prescribed? Prescription and nonprescription (over the counter) naloxone nasal spray is used along with emergency medical treatment to reverse the life-threatening effects of a known or suspected opiate (narcotic) overdose in adults and children. Naloxone nasal spray is in a class of medications called opiate antagonists. It works by blocking the effects of opiates to relieve dangerous symptoms caused by high levels of opiates in the blood. HOW should this medicine be used? Naloxone comes as a solution (liquid) to spray into the nose. It is usually given as needed to treat opiate overdoses. Each naloxone nasal spray contains a single dose of naloxone and should be used only once. You will probably be unable to treat yourself if you experience an opiate overdose. You should makesure that your family members, caregivers, or the people who spend time with you know how to tell if you are experiencing an overdose, how to use naloxone nasal spray, and what to do until emergency m edical help arrives. Your doctor or pharmacist will show you and your family members how to use themedication. You and anyone who may need to give the medication should read the instructions that come with the nasal spray. Ask your pharmacist for the instructions or visit the contract project manager's website to get the instructions. You should keep the nasal spray available at all times in case you experience an opioid overdose. Be aware of the expiration date on your device and replace the spray when this date passes. Naloxone nasal spray may not reverse the effects of certain opiates such as buprenorphine (Belbuca,Buprenex, Butrans, Sublocade) and pentazocine (Talwin) and may require additional naloxone doses with a new nasal spray each time. Symptoms of an opioid overdose include excessive sleepiness, not awakening when spoken to in a loudvoice or when the middle of your chest is rubbed firmly, shallow or stopped breathing, or small pupils (black circles in the center of the eyes). If someone sees that you are experiencing these symptoms, he or she should give you your first naloxone dose and then call 911 immediately. After receiving the naloxone nasal spray, a person should stay with you and watch you closely until emergency medical help arrives. To give the inhaler, follow these steps: ?? Lay the person on their back to give the medication. ?? Remove the naloxone nasal spray from the box. Peel back the tab to open the spray. ?? Do not prime the nasal spray before using it. ?? Hold the naloxone nasal spray with your thumb on the bottom of the plunger and your first and middle fingers on either side of the nozzle. ?? Gently insert the tip of the nozzle into one nostril, until your fingers on either side of the nozzle are against the bottom of the person's nose. Provide support to the back of the person's neck with your hand to allow the head to tilt back. ?? Press the plunger firmly to release the medication. ?? Remove the nasal spray nozzle from the nostril after giving the medication. ?? Turn the person on their side (recovery position) and call for emergency medical assistance immediately after giving the first naloxone dose. ?? If the person does not respond by waking up, to voice or touch, or breathing normally or responds and then relapses, give another dose. If needed, give additional doses (repeating steps 2 through 7) every 2 to 3 minutes in alternate nostrils with a new nasal spray each time until emergency medical assistance arrives. ?? Put the used nasal spray(s) back in the container and out of reach of children until you can safely dispose of it. Ask your pharmacist or doctor for a copy of the contract project manager's information for the patient. Are there OTHER USES for this medicine? This medication may be prescribed for other uses; ask your doctor or pharmacist for more information. What SPECIAL PRECAUTIONS should I follow? Before receiving naloxone nasal spray, ?? tell your doctor and pharmacist if you are allergic to naloxone, any other medications, or any of the ingredients in naloxone nasal spray. Ask your pharmacist for a list of the ingredients. ?? tell your doctor and pharmacist what other prescription and nonprescription medications, vitamins, nutritional supplements, and herbal products you are taking or plan to take. Be sure to tell yourdoctor about all the medications you are taking. ?? tell your doctor if you have or have ever had heart disease. ?? tell your doctor if you are , plan to become , or are . If you receive naloxone nasal spray during , your doctor may need to monitor your unborn baby carefully after you receive the medication. What SIDE EFFECTS can this medicine cause? Some side effects can be serious. If you experience any of these symptoms, get emergency medical treatment: ?? signs of opiate withdrawal such as body aches, diarrhea, fast, pounding, or irregular heartbeat,fever, runny nose, sneezing, sweating, yawning, nausea, vomiting, nervousness, restlessness, irritability, shivering, trembling, stomach cramps, weakness, and the appearance of hair on the skin standing on end ?? seizures ?? loss of consciousness ?? crying more than usual (in babies treated with naloxone nasal spray) ?? stronger than normal reflexes (in babies treated with naloxone nasal spray) Naloxone nasal spray may cause other side effects. Call your doctor if you have any unusual problems while receiving this medication. If you experience a serious side effect, you or your doctor may send a report to the Food and Drug Administration's (FDA) MedWatch Adverse Event Reporting program online (https://www.fda.gov/Safety/MedWatch) or by phone ( ). What should I know about STORAGE and DISPOSAL of this medication? Keep this medication in the container it came in, tightly closed, and out of reach of children. Store it at room temperature and away from light, excess heat and moisture (not in the bathroom). Do not freeze the naloxone nasal spray. It is important to keep all medication out of sight and reach of children as many containers (such as weekly pill minders and those for eye drops, creams, patches, and inhalers) are not child-resistant and young children can open them easily. To protect young children from poisoning, always lock safety caps and immediately place the medication in a safe location - one that is up and away and out of their sight and reach. https://www.[employer]andCleanFish.org Unneeded medications should be disposed of in special ways to ensure that pets, children, and otherpeople cannot consume them. However, you should not flush this medication down the toilet. Instead,the best way to dispose of your medication is through a medicine take-back program. Talk to your pharmacist or contact your local garbage/recycling department to learn about take-back programs in your community. See the FDA's Safe Disposal of Medicines website (https://goo.gl/c4Rm4p) for more information if you do not have access to a take-back program. What OTHER INFORMATION should I know? It is important for you to keep a written list of all of the prescription and nonprescription (uvlh-iif-sbohjvk) medicines you are taking, as well as any products such as vitamins, minerals, or otherdietary supplements. You should bring this list with you each time you visit a doctor or if you areadmitted to a hospital. It is also important information to carry with you in case of emergencies. This report on medications is for your information only, and is not considered individual patient advice. Because of the changing nature of drug information, please consult your physician or pharmacist about specific clinical use. The [employer] represents that the information provided hereunder was formulated with a reasonable standard of care, and in conformity with professional standards in the field. The [employer] makes no representations or warranties, express or implied, including, but not limited to, any implied warranty of merchantability and/or fitness for a particular purpose, with respect to such information and specifically disclaims all such warranties. Users are advised that decisions regarding drug therapy are complex medical decisions requiring the independent, informed decision of an appropriate health long term care social worker, and the information is provided for informational purposes only. The entire monograph for a drug should be reviewed for a thorough understanding of the drug's actions, uses and side effects. The [employer] does not endorse or recommend the use of any drug.The information is not a substitute for medical care. AHFS?? Patient Medication Information?. ?? Copyright, 2023. The [employer]??, [address], [address], [place], [place]. All Rights Reserved. Duplication for commercial use must be authorized by [facility]. Selected Revisions: September 03, 2023. AHFS?? Patient Medication Information?. ?? Copyright, 2024 * [facility] - Amy Sultana RN - 06/21/2024 12:27 PM EDT Images from the original note were not included. [id number] Simethicone Brand Name(s): Mt?? Anti-Gas, Colic Drops, Colicon??, Degas??, Flatulex?? Drops, Gas Aide??, Gas-X??, Genasyme??, Maalox?? Anti-Gas, Majorcon??, Micon-80??, Mylanta?? Gas, Mylaval??, Mylicon??, Mytab?? Gas, Phazyme??, SonoRx??, Alamag Plus?? (as a combination product containing Aluminum Hydroxide, Magnesium Hydroxide, Simethicone), Aldroxicon?? (as a combination product containing Aluminum Hydroxide, Magnesium Hydroxide, Simethicone), Almacone?? (as a combination product containing Aluminum Hydroxide, Magnesium Hydroxide, Simethicone), Balanta?? (as a combination product containing Aluminum Hydroxide, Magnesium Hydroxide, Simethicone), Balox Plus?? (as a combination product containing Aluminum Hydroxide, Magnesium Hydroxide, Simethicone), Dixlanta?? (as a combination product containing Aluminum Hydroxide, Magnesium Hydroxide, Simethicone), Flatulex?? Tablets (as a combination product containing Activated Charcoal, Simethicone), Gas-X?? with Maalox?? (as a combination productcontaining Calcium Carbonate, Simethicone), Gelusil?? (as a combination product containing AluminumHydroxide, Magnesium Hydroxide, Simethicone), Gen- Lanta (as a combination product containing Aluminum Hydroxide, Magnesium Hydroxide, Simethicone), Imodium?? Advanced (as a combination product containing Loperamide, Simethicone), Losospan?? Plus (as a combination product containing Magaldrate, Simethicone), Low Sodium Plus?? (as a combination product containing Aluminum Hydroxide, Magnesium Hydroxide, Simethicone), Lowsium Plus?? (as a combination product containing Magaldrate, Simethicone), Maalox?? Plus (as a combination product containing Aluminum Hydroxide, Magnesium Hydroxide, Simethicone), Magaant?? (as a combination product containing Aluminum Hydroxide, Magnesium Hydroxide, Simethicone), Magagel?? Plus (as a combination product containing Aluminum Hydroxide, Magnesium Hydroxide, Simethicone), Magaldrate Plus (as a combination product containing Magaldrate, Simethicone), Magalox?? Plus (as a combination product containing Aluminum Hydroxide, Magnesium Hydroxide, Simethicone), Maldroxal?? Plus (as a combination product containing Aluminum Hydroxide, Magnesium Hydroxide, Simethicone), Masanti?? (as a combination product containing Aluminum Hydroxide, Magnesium Hydroxide, Simet hicone), Mintox?? Plus (as a combination product containing Aluminum Hydroxide, Magnesium Hydroxide, Simethicone), Mygel?? (as a combination product containing Aluminum Hydroxide, Magnesium Hydroxide, Simethicone), Mylagel?? (as a combination product containing Aluminum Hydroxide, Magnesium Hydroxide, Simethicone), Mylagen?? (as a combination product containing Aluminum Hydroxide, Magnesium Hydroxide, Simethicone), Mylanta?? (as a combination product containing Aluminum Hydroxide, Magnesium Hydroxide, Simethicone), Ri-Gel II?? (as a combination product containing Aluminum Hydroxide, MagnesiumHydroxide, Simethicone), Ri-Mox?? Plus (as a combination product containing Aluminum Hydroxide, Magnesium Hydroxide, Simethicone), Riopan?? (as a combination product containing Magaldrate, Simethicone), Rolaids?? Multi-Symptom (as a combination product containing Calcium Carbonate, Magnesium Hydroxide, Simethicone), Rolaids?? Plus Gas Relief (as a combination product containing Calcium Carbonate,Simethicone), Rulox?? Plus (as a combination product containing Aluminum Hydroxide, Magnesium Hydroxide, Simethicone), Titralac?? Plus (as a combination product containing Calcium Carbonate, Simethicone), Valumag?? Plus (as a combination product containing Aluminum Hydroxide, Magnesium Hydroxide, Si methicone); also available generically WHY is this medicine prescribed? Simethicone is used to treat the symptoms of gas such as uncomfortable or painful pressure, fullness, and bloating. This medication is sometimes prescribed for other uses; ask your doctor or pharmacist for more information. HOW should this medicine be used? Simethicone comes as regular tablets, chewable tablets, capsules, and liquid to take by mouth. It usually is taken four times a day, after meals and at bedtime. Follow the directions on the package or on your prescription label carefully, and ask your doctor or pharmacist to explain any part you donot understand. Take simethicone exactly as directed. Do not take more or less of it or take it more often than prescribed by your doctor. Swallow the regular tablets and capsules whole. Chewable tablets should be chewed thoroughly beforebeing swallowed; do not swallow them whole. Do not take more than six simethicone tablets or eight simethicone capsules each day unless your doctor tells you to. The liquid may be mixed with 1 ounce (30 milliliters) of cool water or infant formula. What SPECIAL PRECAUTIONS should I follow? Before taking simethicone, ?? tell your doctor and pharmacist if you are allergic to simethicone or any other drugs. ?? tell your doctor and pharmacist what prescription and nonprescription medications, vitamins, nutritional supplements, and herbal products you are taking or plan to take. ?? tell your doctor if you are , plan to become , or are breast- feeding. If you become while taking simethicone, call your doctor. What should I do IF I FORGET to take a dose? If you are taking simethicone on a regular schedule, take the missed dose as soon you remember it. However, if it is almost time for the next dose, skip the missed dose and continue your regular dosing schedule. Do not take a double dose to make up for a missed one. What SIDE EFFECTS can this medicine cause? What should I know about STORAGE and DISPOSAL of this medication? Keep this medication in the container it came in, tightly closed, and out of reach of children. Store it at room temperature and away from excess heat and moisture (not in the bathroom). It is important to keep all medication out of sight and reach of children as many containers (such as weekly pill minders and those for eye drops, creams, patches, and inhalers) are not child-resistant and young children can open them easily. To protect young children from poisoning, always lock safety caps and immediately place the medication in a safe location - one that is up and away and out of their sight and reach. https://www.[employer].org Unneeded medications should be disposed of in special ways to ensure that pets, children, and otherpeople cannot consume them. However, you should not flush this medication down the toilet. Instead,the best way to dispose of your medication is through a medicine take-back program. Talk to your pharmacist or contact your local garbage/recycling department to learn about take-back programs in your community. See the FDA's Safe Disposal of Medicines website (https://goo.gl/c4Rm4p) for more information if you do not have access to a take-back program. What OTHER INFORMATION should I know? Ask your doctor or pharmacist any questions you have about taking this medicine. It is important for you to keep a written list of all of the prescription and nonprescription (myzn-xez-zqpnvtc) medicines you are taking, as well as any products such as vitamins, minerals, or otherdietary supplements. You should bring this list with you each time you visit a doctor or if you areadmitted to a hospital. It is also important information to carry with you in case of emergencies. This report on medications is for your information only, and is not considered individual patient advice. Because of the changing nature of drug information, please consult your physician or pharmacist about specific clinical use. The [employer] represents that the information provided hereunder was formulated with a reasonable standard of care, and in conformity with professional standards in the field. The [employer] makes no representations or warranties, express or implied, including, but not limited to, any implied warranty of merchantability and/or fitness for a particular purpose, with respect to such information and specifically disclaims all such warranties. Users are advised that decisions regarding drug therapy are complex medical decisions requiring the independent, informed decision of an appropriate health long term care social worker, and the information is provided for informational purposes only. The entire monograph for a drug should be reviewed for a thorough understanding of the drug's actions, uses and side effects. The [employer] does not endorse or recommend the use of any drug.The information is not a substitute for medical care. AHFS?? Patient Medication Information?. ?? Copyright, 2023. The [employer]??, [address], [address], [place], [place]. All Rights Reserved. Duplication for commercial use must be authorized by [facility]. Selected Revisions: March 31, 2017. AHFS?? Patient Medication Information?. ?? Copyright, 2024 * [facility] - Amy Sultana RN - 06/21/2024 12:27 PM EDT Images from the original note were not included. [id number] Rosuvastatin Brand Name(s): Crestor??, Ezallor?? Sprinkle??, Roszet?? (containing Rosuvastatin, Ezetimibe)??; also available generically WHY is this medicine prescribed? Rosuvastatin is used together with diet, weight-loss, and exercise to reduce the risk of heart attack and stroke and to decrease the chance that heart surgery will be needed in people who have heart disease or who are at risk of developing heart disease. Rosuvastatin is also used to decrease the amount of cholesterol such as low-density lipoprotein (LDL) cholesterol ('bad cholesterol') and triglycerides in the blood and to increase the amount of high-density lipoprotein (HDL) cholesterol ('goodcholesterol') in the blood. Rosuvastatin may also be used together with diet to decrease the amountof cholesterol and other fatty substances in the blood in adults and children and teenagers 8 to 17years of age who have familial heterozygous hypercholesterolemia (an inherited condition in which cholesterol cannot be removed from the body normally). Rosuvastatin is used together with diet, and alone or in combination with other medications, to decrease the amount of cholesterol and other fattysubstances in the blood in adults and children and teenagers 7 to 17 years of age who have familialhomozygous hypercholesterolemia (an inherited condition in which cholesterol cannot be removed fromthe body normally). Rosuvastatin is in a class of medications called HMG-CoA reductase inhibitors (statins). It works by slowing the production of cholesterol in the body to decrease the amount of cho lesterol that may build up on the mcghee of the arteries and block blood flow to the heart, brain, and other parts of the body. Accumulation of cholesterol and fats along the mcghee of your arteries (a process known as atherosclerosis) decreases blood flow and, therefore, the oxygen supply to your heart, brain, and other partsof your body. Lowering your blood level of cholesterol and fats with rosuvastatin has been shown toprevent heart disease, angina (chest pain), strokes, and heart attacks. HOW should this medicine be used? Rosuvastatin comes as a tablet to take by mouth. It is usually taken once a day with or without food. Take rosuvastatin at around the same time every day. Follow the directions on your prescription label carefully, and ask your doctor or pharmacist to explain any part you do not understand. Take rosuvastatin exactly as directed. Do not take more or less of it or take it more often than prescribedby your doctor. Your doctor will probably start you on a low dose of rosuvastatin and gradually increase your dose,not more than once every 2 to 4 weeks. Swallow the tablets whole; do not split, chew, or crush them. Continue to take rosuvastatin even if you feel well. Do not stop taking rosuvastatin without talking to your doctor. Are there OTHER USES for this medicine? This medication may be prescribed for other uses; ask your doctor or pharmacist for more information. What SPECIAL PRECAUTIONS should I follow? Before taking rosuvastatin, ?? tell your doctor and pharmacist if you are allergic to rosuvastatin, any other medications, or any of the ingredients in rosuvastatin tablets. Ask your pharmacist for a list of the ingredients. ?? tell your doctor and pharmacist what prescription and nonprescription medications, vitamins, nutritional supplements, and herbal products you are taking or plan to take. Your doctor may need to change the doses of your medications or monitor you carefully for side effects. ?? if you are taking aluminum and magnesium hydroxide antacids (Mylanta, Maalox), take them at least 2 hours after rosuvastatin. ?? tell your doctor if you have or ever had liver disease. Your doctor will order laboratory tests to see how well your liver is working even if you do not think you have liver disease. Your doctor will probably tell you not to take rosuvastatin if you have liver disease or if the tests show that you may be developing liver disease. ?? tell your doctor if you are , if you drink more than 2 alcoholic beverages daily, if you are 65 years of age or older, or if you have or have ever had seizures, muscle aches or weakness, low blood pressure, impaired fasting glucose (pre-diabetes) or diabetes, or kidney or thyroid disease. ?? tell your doctor if you are or plan to become . If you become while taking rosuvastatin, call your doctor immediately. ?? tell your doctor if you are or plan to breastfeed. You should not breastfeed whiletaking rosuvastatin. ?? if you are having surgery, including dental surgery, tell the doctor or dentist that you are taking rosuvastatin. If you are hospitalized due to serious injury or infection, tell the doctor who treats you that you are taking rosuvastatin. ?? ask your doctor about the safe use of alcoholic beverages while you are taking rosuvastatin. Alcohol can increase the risk of serious side effects. What SPECIAL DIETARY instructions should I follow? Eat a low-fat, low-cholesterol diet. Be sure to follow all exercise and dietary recommendations made by your doctor or dietitian. You can also visit the National Cholesterol Education Program (NCEP) website for additional dietary information at https://www.nhlbi.nih.gov/health/public/heart/chol/chol_tlc.pdf. What should I do IF I FORGET to take a dose? Take the missed dose as soon as you remember it. However, if it is almost time for the next dose, skip the missed dose and continue your regular dosing schedule. Do not take a double dose to make up for a missed one. What SIDE EFFECTS can this medicine cause? Some side effects can be serious. If you experience any of the following symptoms, call your doctorimmediately or get emergency medical help: ?? muscle pain, tenderness, or weakness (or if these symptoms continue after stopping rosuvastatin) ?? lack of energy ?? fever ?? dark, reddish urine or decreased amount of urine ?? yellowing of the skin or eyes ?? dark colored urine ?? pain in the upper right part of the abdomen ?? nausea ?? extreme tiredness ?? unusual bleeding or bruising ?? loss of appetite ?? flu-like symptoms ?? rash ?? hives ?? itching ?? difficulty breathing or swallowing ?? swelling of the face, throat, tongue, lips, eyes, hands, feet, ankles, or lower legs ?? hoarseness Rosuvastatin may cause other side effects. Call your doctor if you have any unusual problems while taking this medication. If you experience a serious side effect, you or your doctor may send a report to the Food and Drug Administration's (FDA) MedWatch Adverse Event Reporting program online (https://www.fda.gov/Safety/MedWatch) or by phone ( ). What should I know about STORAGE and DISPOSAL of this medication? Keep this medication in the container it came in, tightly closed, and out of reach of children. Store it at room temperature and away from excess heat and moisture (not in the bathroom). It is important to keep all medication out of sight and reach of children as many containers (such as weekly pill minders and those for eye drops, creams, patches, and inhalers) are not child-resistant and young children can open them easily. To protect young children from poisoning, always lock safety caps and immediately place the medication in a safe location - one that is up and away and out of their sight and reach. https://www.Eqiancheng.com.org Unneeded medications should be disposed of in special ways to ensure that pets, children, and otherpeople cannot consume them. However, you should not flush this medication down the toilet. Instead,the best way to dispose of your medication is through a medicine take-back program. Talk to your pharmacist or contact your local garbage/recycling department to learn about take-back programs in your community. See the FDA's Safe Disposal of Medicines website (https://goo.gl/c4Rm4p) for more information if you do not have access to a take-back program. What should I do in case of OVERDOSE? In case of overdose, call the poison control helpline at . Information is also available online at https://www.poisonhelp.org/help. If the victim has collapsed, had a seizure, has trouble breathing, or can't be awakened, immediately call emergency services at [phone]. What OTHER INFORMATION should I know? Keep all appointments with your doctor and the laboratory. Your doctor may order lab tests during your treatment, especially if you develop symptoms of liver damage. Before having any laboratory test, tell your doctor and the laboratory personnel that you are taking rosuvastatin. Do not let anyone else take your medication. Ask your pharmacist any questions you have about refilling your prescription. It is important for you to keep a written list of all of the prescription and nonprescription (rvls-joo-znxdgwx) medicines you are taking, as well as any products such as vitamins, minerals, or otherdietary supplements. You should bring this list with you each time you visit a doctor or if you areadmitted to a hospital. It is also important information to carry with you in case of emergencies. This report on medications is for your information only, and is not considered individual patient advice. Because of the changing nature of drug information, please consult your physician or pharmacist about specific clinical use. The [employer] represents that the information provided hereunder was formulated with a reasonable standard of care, and in conformity with professional standards in the field. The [employer] makes no representations or warranties, express or implied, including, but not limited to, any implied warranty of merchantability and/or fitness for a particular purpose, with respect to such information and specifically disclaims all such warranties. Users are advised that decisions regarding drug therapy are complex medical decisions requiring the independent, informed decision of an appropriate health long term care social worker, and the information is provided for informational purposes only. The entire monograph for a drug should be reviewed for a thorough understanding of the drug's actions, uses and side effects. The [employer] does not endorse or recommend the use of any drug.The information is not a substitute for medical care. AHFS?? Patient Medication Information?. ?? Copyright, 2023. The [employer]??, [address], [address], [place], [place]. All Rights Reserved. Duplication for commercial use must be authorized by [facility]. Selected Revisions: January 29, 2024. AHFS?? Patient Medication Information?. ?? Copyright, 2024 * [facility] - Amy Sultana RN - 06/21/2024 12:27 PM EDT Images from the original note were not included. [id number] Oxycodone Brand Name(s): Oxaydo?, Oxycontin??, Roxicodone??, Roxybond??, Xtampza?? ER, Combunox?? (as a combination product containing Ibuprofen, Oxycodone)??, Oxycet?? (as a combination product containing Acetaminophen, Oxycodone), Percocet?? (as a combination product containing Acetaminophen, Oxycodone), Percodan?? (as a combination product containing Aspirin, Oxycodone), Roxicet?? (as a combination product containing Acetaminophen, Oxycodone)??, Roxilox?? (as a combination product containing Acetaminophen, Oxycodone)??, Roxiprin?? (as a combination product containing Aspirin, Oxycodone)??, Targiniq?? ER (as a combination product containing naloxone, oxycodone)??, Troxyca ER?? (as a combination product containing Naltrexone, Oxycodone)??, Tylox?? (as a combination product containing Acetaminophen, Oxycodone)??, Xartemis XR?? (as a combination product containing Acetaminophen, Oxycodone)??; also available generically IMPORTANT WARNING: Oxycodone may be habit-forming. Take oxycodone exactly as directed. Do not take more of it, take itmore often, or take it in a different way than directed by your doctor. While taking oxycodone, discuss with your healthcare provider your pain treatment goals, length of treatment, and other ways tomanage your pain. Tell your doctor if you or anyone in your family drinks or has ever drunk large amounts of alcohol, uses or has ever used street drugs, or has overused prescription medications, or has had an overdose, or if you have or have ever had depression or another mental illness. There is a greater risk that you will overuse oxycodone if you have or have ever had any of these conditions.Talk to your healthcare provider immediately and ask for guidance if you think that you have an opioid addiction or call the U.[place]. Substance Abuse and Mental Health Services Administration (SAMHSA) National Helpline at 2-429-115-CPSA. Oxycodone may cause serious or life-threatening breathing problems, especially during the first 24 to 72 hours of your treatment and any time your dose is increased. Your doctor will monitor you carefully during your treatment. Tell your doctor if you have or have ever had slowed breathing or asthma. Your doctor will probably tell you not to take oxycodone. Also tell your doctor if you have or have ever had lung disease such as chronic obstructive pulmonary disease (COPD; a group of diseases that affect the lungs and airways), a head injury a brain tumor, or any condition that increases the amount of pressure in your brain. The risk that you will develop breathing problems may be higher if you are an older adult or are weak or malnourished due to disease. If you experience any of the following symptoms, call your doctor immediately or get emergency medical treatment: slowed breathing, long pauses between breaths, or shortness of breath. Do not allow anyone else to take your medication. Oxycodone may harm or cause to other peoplewho take your medication, especially children. Keep oxycodone in a safe place so that no one else can take it accidentally or on purpose. Be especially careful to keep oxycodone out of the reach of children. Keep track of how many capsules, tablets, or oral solution is left so you will know if any medication is missing. Taking certain other medications with oxycodone may increase the risk of serious or life-threatening breathing problems, sedation, or coma. Tell your doctor and pharmacist what other prescription andnonprescription medications, vitamins, nutritional supplements, and herbal products you are taking or plan to take. Your doctor may need to change the doses of your medication and will monitor you carefully. If you take oxycodone with other medications and you develop any of the following symptoms,call your doctor immediately or seek emergency medical care: unusual dizziness, lightheadedness, extreme sleepiness, slowed or difficult breathing, or unresponsiveness. Be sure that your caregiver orfamily members know which symptoms may be serious so they can call the doctor or emergency medical care if you are unable to seek treatment on your own. Drinking alcohol, taking prescription or nonprescription medications that contain alcohol, or usingstreet drugs during your treatment with oxycodone increases the risk that you will experience serious, life-threatening side effects. Do not drink alcohol, take prescription or nonprescription medications that contain alcohol, or use street drugs during your treatment. If you are taking the oxycodone extended-release tablets, swallow them whole; do not chew, break, divide, crush, or dissolve them. Do not presoak, lick or otherwise wet the tablet prior to placing inthe mouth. Swallow each tablet right after you put it in your mouth. If you swallow broken, chewed,crushed, or dissolved extended-release tablets, you may receive too much oxycodone at once instead of slowly over 12 hours. This may cause serious problems, including overdose and . Oxycodone comes as a regular solution (liquid) and as a concentrated solution that contains more oxycodone in each milliliter of solution. Be sure that you know whether your doctor has prescribed theregular or concentrated solution and the dose in milliliters that your doctor has prescribed. Use the dosing cup, oral syringe, or dropper provided with your medication to carefully measure the number of milliliters of solution that your doctor prescribed. Read the directions that come with your medication carefully and ask your doctor or pharmacist if you have any questions about how to measure your dose or how much medication you should take. You may experience serious or life threatening side effects if you take an oxycodone solution with a different concentration or if you take a different amount of medication than prescribed by your doctor. Store oxycodone in a safe place so that no one else can take it accidentally or on purpose. Be especially careful to keep oxycodone out of the reach of children. Keep track of how many tablets or capsules, or how much liquid is left so you will know if any medication is missing. Dispose of unwantedcapsules, tablets, extended-release tablets, extended-release capsules, and liquid properly according to instructions. (See STORAGE and DISPOSAL). Tell your doctor if you are or plan to become . If you take oxycodone regularly during your , your baby may experience life- threatening withdrawal symptoms after . Tellyour baby's doctor right away if your baby experiences any of the following symptoms: irritability, hyperactivity, abnormal sleep, high-pitched cry, uncontrollable shaking of a part of the body, vomiting, diarrhea, or failure to gain weight. Talk to your doctor about the risks of taking oxycodone. Your doctor or pharmacist will give you the contract project manager's patient information sheet (Medication Guide) when you begin your treatment with oxycodone and each time you fill your prescription. Read theinformation carefully and ask your doctor or pharmacist if you have any questions. You can also visit the Food and Drug Administration (FDA) website (https://www.fda.gov/Drugs/DrugSafety/yks646059.htm) or the contract project manager's website to obtain the Medication Guide. WHY is this medicine prescribed? Oxycodone immediate-release tablets, capsules, and oral solution are used to relieve severe, acute pain (pain that begins suddenly, has a specific cause, and is expected to go away when the cause of the pain is healed) in people who are expected to need an opioid pain medication and who cannot be treated with other pain medications. Oxycodone extended-release tablets and extended-release capsulesare used to relieve severe pain in people who are expected to need pain medication around the clockfor a long time and who cannot be treated with other medications. Oxycodone extended-release tablets and extended-release capsules should not be used to treat pain that can be controlled by medication that is taken as needed. Oxycodone concentrated solution should only be used to treat people who are tolerant (used to the effects of the medication) to opioid medications because they have taken this type of medication for at least one week. Oxycodone is in a class of medications called opiate (narcotic) analgesics. It works by changing the way the brain and nervous system respond to pain. Oxycodone is also available in combination with acetaminophen (Oxycet??, Percocet??, others) and aspirin (Percodan??). This monograph only includes information about the use of oxycodone alone. If you are taking an oxycodone combination product, be sure to read information about all the ingredientsin the product you are taking and ask your doctor or pharmacist for more information. HOW should this medicine be used? Oxycodone comes as a solution (liquid), a concentrated solution, a tablet, a capsule, an extended-release (long-acting) tablet (Oxycontin??), and an extended-release capsule (Xtampza ER??) to take bymouth. The solution, concentrated solution, tablet, and capsule are taken usually with or without fo od every 4 to 6 hours, either as needed for pain or as regularly scheduled medications. The extended-release tablets (Oxycontin??) are taken every 12 hours with or without food. The extended-release capsules (Xtampza ER??) are taken every 12 hours with food; eat the same amount of food with each dose. Follow the directions on your prescription label carefully, and ask your doctor or pharmacist toexplain any part you do not understand. Take oxycodone exactly as directed. If you are taking the extended-release tablets (Oxycontin??), swallow the tablets one at a time with plenty of water. Swallow the tablet or right after putting it in your mouth. Do not presoak, wet, or lick the tablets before you put them in your mouth. Do not chew or crush extended-release tablets. If you have trouble swallowing extended-release capsules (Xtampza ER??), you can carefully open thecapsule and sprinkle the contents on soft foods such as applesauce, pudding, yogurt, ice cream, or jam, then consume the mixture immediately. Dispose of the empty capsule shells right away by flushing them down a toilet. Do not store the mixture for future use. If you have a feeding tube, the extended-release capsule contents can be poured into the tube. Ask your doctor how you should take the medication and follow these directions carefully. Your doctor may adjust your dose of oxycodone during your treatment, depending on how well your pain is controlled and on the side effects that you experience. Talk to your doctor about how you are feeling during your treatment with oxycodone. Tell your doctor if you feel that your pain is not controlled or if your pain increases, becomes worse, or if you have new pain or an increased sensitivityto pain during your treatment with oxycodone. Do not take more of it or take it more often than prescribed by your doctor. Do not stop taking oxycodone without talking to your doctor. If you stop taking oxycodone suddenly,you may experience withdrawal symptoms such as restlessness, watery eyes, runny nose, sneezing, yawning, sweating, chills, muscle or joint aches or pains, weakness, irritability, anxiety, depression,difficulty falling asleep or staying asleep, cramps, nausea, vomiting, diarrhea, loss of appetite, fast heartbeat, and fast breathing. Your doctor will probably decrease your dose gradually. Are there OTHER USES for this medicine? This medication may be prescribed for other uses; ask your doctor or pharmacist for more information. What SPECIAL PRECAUTIONS should I follow? Before taking oxycodone, ?? tell your doctor and pharmacist if you are allergic to oxycodone, any other medications, or any of the ingredients in the oxycodone product you plan to take. Ask your pharmacist or check the Medication Guide for a list of the ingredients. ?? tell your doctor or pharmacist if you are taking the following medications or have stopped taking them within the past two weeks: isocarboxazid (Marplan??), linezolid (Zyvox??), methylene blue, phenelzine (Nardil??), selegiline (Emsam??, Zelapar??), or tranylcypromine (Parnate??). ?? The following nonprescription or herbal products may interact with oxycodone: Valders's wort and tryptophan. Be sure to let your doctor and pharmacist know that you are taking these medications before you start taking oxycodone. Do not start these medications while taking oxycodone without discussing it with your healthcare provider. ?? tell your doctor if you have or have ever had any of the conditions mentioned in the IMPORTANT WARNING section, a blockage or narrowing of your stomach or intestines, or paralytic ileus (conditionin which digested food does not move through the intestines). Your doctor may tell you not to take oxycodone. ?? Also tell your doctor if you have or have ever had low blood pressure; seizures; adrenal insufficiency (condition in which the adrenal glands do not produce enough of certain hormones needed for important body functions); seizures; urethral stricture (blockage of the tube that allows urine to leave the body), problems urinating; or heart, kidney, liver, pancreas, thyroid, or gall bladder disease. If you will be taking the extended-release tablets or extended-release capsules, also tell your doctor if you have or have ever had difficulty swallowing, diverticulitis (condition in which small pouches form in the intestines and become swollen and infected), colon cancer (cancer that begins inthe large intestine), or esophageal cancer (cancer that begins in the tube that connects the mouth and stomach). ?? tell your doctor if you are . You should not breastfeed while you are taking oxycodone. Oxycodone can cause shallow breathing, difficulty or noisy breathing, confusion, more than usual sleepiness, trouble , or limpness in breastfed infants. ?? you should know that this medication may decrease fertility in men and women. Talk to your doctor about the risks of taking oxycodone. ?? if you are having surgery, including dental surgery, tell the doctor or dentist that you are taking oxycodone. ?? you should know that this medication may make you drowsy. Do not drive a car, operate heavy machinery, or participate in any other possibly dangerous activities until you know how this medication affects you. ?? you should know that oxycodone may cause dizziness, lightheadedness, and fainting when you get up too quickly from a lying position. To help avoid this problem, get out of bed slowly, resting yourfeet on the floor for a few minutes before standing up. ?? you should know that oxycodone may cause constipation. Talk to your doctor about changing your diet or using other medications to prevent or treat constipation while you are taking oxycodone. What SPECIAL DIETARY instructions should I follow? Unless your doctor tells you otherwise, continue your normal diet. What should I do IF I FORGET to take a dose? If you are taking oxycodone on a regular schedule, take the missed dose as soon as you remember it.However, if it is almost time for the next dose, skip the missed dose and continue your regular dosing schedule. Do not take a double dose to make up for a missed one. Do not take more than one dose of the extended- release tablets or capsules in 12 hours. What SIDE EFFECTS can this medicine cause? Some side effects can be serious. If you experience any of these symptoms or those mentioned in theIMPORTANT WARNING section, call your doctor immediately or get emergency medical help: ?? changes in heartbeat ?? agitation, hallucinations (seeing things or hearing voices that do not exist), fever, sweating, confusion, fast heartbeat, shivering, severe muscle stiffness or twitching, loss of coordination, ordiarrhea ?? nausea, vomiting, loss of appetite, weakness, or dizziness ?? inability to get or keep an erection ?? irregular menstruation ?? decreased sexual desire ?? chest pain ?? rash; itching; hives; hoarseness; difficulty breathing or swallowing; or swelling of the face, mouth, tongue, lips, or throat ?? swelling of the hands, feet, ankles, or lower legs ?? seizures ?? extreme drowsiness If you experience a serious side effect, you or your doctor may send a report to the Food and Drug Administration's (FDA) MedWatch Adverse Event Reporting program online (https://www.fda.gov/Safety/MedWatch) or by phone ( ). Oxycodone may cause other side effects. Call your doctor if you have any unusual problems while youare taking this medication. What should I know about STORAGE and DISPOSAL of this medication? Keep this medication in the container it came in, tightly closed, and out of reach of children, andin a location that is not easily accessible by others, including visitors to the home. Store it at room temperature and away from light and excess heat and moisture (not in the bathroom). You must immediately dispose of any medication that is outdated or no longer needed through a medicine take-back program. If you do not have a take-back program nearby or one that you can access promptly, flush any medication that is outdated or no longer needed down the toilet so that others will not take it.Talk to your pharmacist about the proper disposal of your medication. It is important to keep all medication out of sight and reach of children as many containers (such as weekly pill minders and those for eye drops, creams, patches, and inhalers) are not child-resistant and young children can open them easily. To protect young children from poisoning, always lock safety caps and immediately place the medication in a safe location - one that is up and away and out of their sight and reach. https://www.upandaway.org What should I do in case of OVERDOSE? In case of overdose, call the poison control helpline at . Information is also available online at https://www.poisonhelp.org/help. If the victim has collapsed, had a seizure, has trouble breathing, or can't be awakened, immediately call emergency services at 911. While taking oxycodone, you should talk to your doctor about having a rescue medication called naloxone readily available (e.g., home, office). Naloxone is used to reverse the life-threatening effects of an overdose. It works by blocking the effects of opiates to relieve dangerous symptoms caused by high levels of opiates in the blood. Your doctor may also prescribe you naloxone if you are livingin a household where there are small children or someone who has abused street or prescription drugs. You should make sure that you and your family members, caregivers, or the people who spend time with you know how to recognize an overdose, how to use naloxone, and what to do until emergency medical help arrives. Your doctor or pharmacist will show you and your family members how to use the medication. Ask your pharmacist for the instructions or visit the contract project manager's website to get the instructions. If symptoms of an overdose occur, a caregiver or family member should give the first dose of naloxone, call 911 immediately, and stay with you and watch you closely until emergency medical help arrives.Your symptoms may return within a few minutes after you receive naloxone. If your symptoms return, the person should give you another dose of naloxone. Additional doses may be given every 2 to 3 minutes, if symptoms return before medical help arrives. Symptoms of overdose may include the following: ?? difficulty breathing ?? slowed or shallow breathing ?? excessive sleepiness ?? limp or weak muscles ?? narrowing or widening of the pupils (dark tazlina in the eye) ?? cold, clammy skin ?? unable to respond or wake up ?? slowed heartbeat ?? unusual snoring What OTHER INFORMATION should I know? Keep all appointments with your doctor. Your doctor may order certain lab tests to check your body's response to oxycodone. Before having any laboratory test (especially those that involve methylene blue), tell your doctor and the laboratory personnel that you are taking oxycodone. This prescription is not refillable. If you continue to have pain after you finish the oxycodone, call your doctor. It is important for you to keep a written list of all of the prescription and nonprescription ([id number]) medicines you are taking, as well as any products such as vitamins, minerals, or otherdietary supplements. You should bring this list with you each time you visit a doctor or if you areadmitted to a hospital. It is also important information to carry with you in case of emergencies. This report on medications is for your information only, and is not considered individual patient advice. Because of the changing nature of drug information, please consult your physician or pharmacist about specific clinical use. The [employer] represents that the information provided hereunder was formulated with a reasonable standard of care, and in conformity with professional standards in the field. [employer] makes no representations or warranties, express or implied, including, but not limited to, any implied warranty of merchantability and/or fitness for a particular purpose, with respect to such information and specifically disclaims all such warranties. Users are advised that decisions regarding drug therapy are complex medical decisions requiring the independent, informed decision of an appropriate health long term care social worker, and the information is provided for informational purposes only. The entire monograph for a drug should be reviewed for a thorough understanding of the drug's actions, uses and side effects. The [employer] does not endorse or recommend the use of any drug.The information is not a substitute for medical care. AHFS?? Patient Medication Information?. ?? Copyright, 2023. The [employer]??, [address], [address], [place], [place]. All Rights Reserved. Duplication for commercial use must be authorized by [facility]. Selected Revisions: February 29, 2024. AHFS?? Patient Medication Information?. ?? Copyright, 2024 * [facility] - Amy Sultana RN - 06/21/2024 12:26 PM EDT Images from the original note were not included. [id number] Metoprolol Brand Name(s): Kapspargo Sprinkle??, Lopressor??, Toprol?, Toprol?? XL, Dutoprol?? (as a combination product containing Metoprolol, Hydrochlorothiazide)??, Lopressidone?? (as a combination productcontaining Chlorthalidone, Metoprolol)??, Lopressor?? HCT (as a combination product containing Metoprolol, Hydrochlorothiazide); also available generically WHY is this medicine prescribed? Metoprolol is used alone or in combination with other medications to treat high blood pressure. It also is used to treat chronic (long-term) angina (chest pain). Metoprolol is also used to improve survival after a heart attack. Metoprolol also is used in combination with other medications to treat heart failure. Metoprolol is in a class of medications called beta blockers. It works by relaxing blood vessels and slowing heart rate to improve blood flow and decrease blood pressure. High blood pressure is a common condition and when not treated, can cause damage to the brain, heart, blood vessels, kidneys and other parts of the body. Damage to these organs may cause heart disease, a heart attack, heart failure, stroke, kidney failure, loss of vision, and other problems. In addition to taking medication, making lifestyle changes will also help to control your blood pressure. These changes include eating a diet that is low in fat and salt, maintaining a healthy weight, exercising at least 30 minutes most days, not smoking, and using alcohol in moderation. HOW should this medicine be used? Metoprolol comes as a tablet, an extended-release (long-acting) tablet, and an extended-release capsule to take by mouth. The regular tablet is usually taken once or twice a day with meals or immediately after meals. The extended-release tablet and extended-release capsule are usually taken once a day. To help you remember to take metoprolol, take it around the same time(s) every day. Follow the directions on your prescription label carefully, and ask your doctor or pharmacist to explain any part you do not understand. Take metoprolol exactly as directed. Do not take more or less of it or take it more often than prescribed by your doctor. The extended-release tablet may be split. Swallow the whole or half extended- release tablets whole;do not chew or crush them. Swallow the extended-release capsules whole; do not split, chew, or crush them. If you are unable to swallow the capsules, you may open the capsule and sprinkle the contents over a spoonful of soft food, such as applesauce, pudding, or yogurt and swallow the mixture immediately. Do not swallow the mixture more than 60 minutes after you sprinkle the contents of the capsule. Your doctor may start you on a low dose of metoprolol and gradually increase your dose. Metoprolol helps to control your condition but will not cure it. Continue to take metoprolol even if you feel well. Do not stop taking metoprolol without talking to your doctor. If you suddenly stop taking metoprolol you may experience serious heart problems such as severe chest pain, a heart attack, or an irregular heartbeat. Your doctor will probably want to decrease your dose gradually over 1 to 2 weeks and will monitor you closely. Are there OTHER USES for this medicine? Metoprolol is also used sometimes to treat certain types of irregular heartbeats. Talk to your doctor about the possible risks of using this medication for your condition. This medication may be prescribed for other uses; ask your doctor or pharmacist for more information. What SPECIAL PRECAUTIONS should I follow? Before taking metoprolol, ?? tell your doctor and pharmacist if you are allergic to metoprolol, any other medications, or anyof the ingredients in metoprolol tablets, extended-release tablets, or extended-release capsules. Ask your pharmacist for a list of the ingredients. ?? tell your doctor and pharmacist what prescription and nonprescription medications, vitamins, nutritional supplements, and herbal products you are taking or plan to take. Your doctor may need to change the doses of your medications or monitor you carefully for side effects. ?? tell your doctor if you have a slow or irregular heartbeat or heart failure. Your doctor may tell you not to take metoprolol. ?? tell your doctor if you have or have ever had asthma or other lung diseases; problems with bloodcirculation; pheochromocytoma (a tumor that develops on a gland near the kidneys and may cause highblood pressure and fast heartbeat); heart or liver disease;diabetes; or hyperthyroidism (an overactive thyroid gland). Also tell your doctor if you have ever had a serious allergic reaction to a foodor any other substance. ?? tell your doctor if you are , plan to become , or are . If you become while taking metoprolol, call your doctor. ?? if you are having surgery, including dental surgery, tell the doctor or dentist that you are taking metoprolol. ?? you should know that metoprolol may make you drowsy. Do not drive a car or operate machinery until you know how this medication affects you. ?? do not drink any alcoholic drinks or take any prescription or nonprescription medications that contain alcohol if you are taking metoprolol extended-release capsules. Ask your doctor or pharmacistif you do not know if a medication that you plan to take contains alcohol. ?? you should know that metoprolol may increase the risk of hypoglycemia (low blood sugar) and prevent the warning signs and symptoms that would tell you that your blood sugar is low. Let your doctorknow if you are unable to eat or drink normally or are vomiting while you are taking metoprolol. You should know the symptoms of low blood sugar and what to do if you have these symptoms. ?? you should know that if you have allergic reactions to different substances, your reactions may be worse while you are using metoprolol, and your allergic reactions may not respond to the usual doses of injectable epinephrine. What SPECIAL DIETARY instructions should I follow? IUnless your doctor tells you otherwise, continue your normal diet. What should I do IF I FORGET to take a dose? Skip the missed dose and continue your regular dosing schedule. Do not take a double dose to make up for a missed one. What SIDE EFFECTS can this medicine cause? Some side effects can be serious. The following symptoms are uncommon, but if you experience any ofthem, call your doctor immediately: ?? shortness of breath or difficulty breathing ?? wheezing ?? swelling of the hands, feet, ankles, or lower legs ?? weight gain ?? fainting ?? rapid, pounding, or irregular heartbeat Metoprolol may cause other side effects. Call your doctor if you have any unusual problems while taking this medication. If you experience a serious side effect, you or your doctor may send a report to the Food and Drug Administration's (FDA) MedWatch Adverse Event Reporting program online (https://www.fda.gov/Safety/MedWatch) or by phone ( ). What should I know about STORAGE and DISPOSAL of this medication? Keep this medication in the container it came in, tightly closed, and out of reach of children. Store it at room temperature and away from excess heat and moisture (not in the bathroom). It is important to keep all medication out of sight and reach of children as many containers (such as weekly pill minders and those for eye drops, creams, patches, and inhalers) are not child-resistant and young children can open them easily. To protect young children from poisoning, always lock safety caps and immediately place the medication in a safe location - one that is up and away and out of their sight and reach. https://www.upandaway.org Unneeded medications should be disposed of in special ways to ensure that pets, children, and otherpeople cannot consume them. However, you should not flush this medication down the toilet. Instead,the best way to dispose of your medication is through a medicine take-back program. Talk to your pharmacist or contact your local garbage/recycling department to learn about take-back programs in your community. See the FDA's Safe Disposal of Medicines website (https://goo.gl/c4Rm4p) for more information if you do not have access to a take-back program. What should I do in case of OVERDOSE? In case of overdose, call the poison control helpline at . Information is also available online at https://www.poisonhelp.org/help. If the victim has collapsed, had a seizure, has trouble breathing, or can't be awakened, immediately call emergency services at 911. Symptoms of overdose may include the following: ?? nausea ?? vomiting ?? decreased consciousness or loss of consciousness (coma) ?? irregular, fast, or slow heartbeat ?? chest pain ?? dizziness ?? fatigue or weakness ?? fainting ?? difficulty breathing ?? cough or wheezing ?? swelling of the hands, feet, ankles, or lower legs What OTHER INFORMATION should I know? Keep all appointments with your doctor. Your blood pressure should be checked regularly to determine your response to metoprolol. Your doctor may ask you to check your pulse (heart rate). Ask your pharmacist or doctor to teach you how to take your pulse. If your pulse is faster or slower than it should be, call your doctor. Do not let anyone else take your medication. Ask your pharmacist any questions you have about refilling your prescription. It is important for you to keep a written list of all of the prescription and nonprescription (chcs-ddp-piamdwc) medicines you are taking, as well as any products such as vitamins, minerals, or otherdietary supplements. You should bring this list with you each time you visit a doctor or if you areadmitted to a hospital. It is also important information to carry with you in case of emergencies. This report on medications is for your information only, and is not considered individual patient advice. Because of the changing nature of drug information, please consult your physician or pharmacist about specific clinical use. The [employer] represents that the information provided hereunder was formulated with a reasonable standard of care, and in conformity with professional standards in the field. The [employer] makes no representations or warranties, express or implied, including, but not limited to, any implied warranty of merchantability and/or fitness for a particular purpose, with respect to such information and specifically disclaims all such warranties. Users are advised that decisions regarding drug therapy are complex medical decisions requiring the independent, informed decision of an appropriate health long term care social worker, and the information is provided for informational purposes only. The entire monograph for a drug should be reviewed for a thorough understanding of the drug's actions, uses and side effects. The [employer] does not endorse or recommend the use of any drug.The information is not a substitute for medical care. [facility]?? Patient Medication Information?. ?? Copyright, 2023. The [employer]??, [address], [address], [place], [place]. All Rights Reserved. Duplication for commercial use must be authorized by [facility]. Selected Revisions: October 29, 2022. AHFS?? Patient Medication Information?. ?? Copyright, 2024 * Can KelleyJAMISON - Amy Sultana RN - 06/21/2024 12:26 PM EDT Images from the original note were not included. [id number] Methocarbamol Brand Name(s): Robaxin??; also available generically WHY is this medicine prescribed? Methocarbamol is used with rest, physical therapy, and other measures to relax muscles and relieve pain and discomfort caused by strains, sprains, and other muscle injuries. Methocarbamol is in a class of medications called muscle relaxants. It works by slowing activity in the nervous system to allow the body to relax HOW should this medicine be used? Methocarbamol comes as a tablet to take by mouth. It usually is taken four times a day at first, then it may be changed to three to six times a day. Follow the directions on your prescription label carefully, and ask your doctor or pharmacist to explain any part you do not understand. Take methocarbamol exactly as directed. Do not take more or less of it or take it more often than prescribed by your doctor. Are there OTHER USES for this medicine? This medication may be prescribed for other uses. Ask your doctor or pharmacist for more information. What SPECIAL PRECAUTIONS should I follow? Before taking methocarbamol, ?? tell your doctor and pharmacist if you are allergic to methocarbamol, any other medications or any of the ingredients in methocarbamol tablets. Ask your doctor or pharmacist for a list of the ingredients. ?? tell your doctor and pharmacist what prescription and nonprescription medications, vitamins, nutritional supplements, and herbal products you are taking or plan to take while taking methocarbamol.Your doctor may need to change the doses of your medications or monitor you carefully for side effects. ?? tell your doctor if you are , plan to become , or are breast- feeding. If you become while taking methocarbamol, call your doctor. ?? talk to your doctor about the risks and benefits of taking methocarbamol if you are 65 years of age or older. Older adults should not usually take methocarbamol because it is not as safe or as effective as other medications that can be used to treat the same condition. ?? you should know that this medication may make you drowsy. Do not drive a car or operate machinery until you know how methocarbamol affects you. ?? talk to your doctor about the safe use of alcohol during your treatment with this medication. Alcohol can make the side effects of methocarbamol worse. What SPECIAL DIETARY instructions should I follow? Unless your doctor tells you otherwise, continue your normal diet. What should I do IF I FORGET to take a dose? Take the missed dose as soon as you remember it. However, if it is almost time for the next dose, skip the missed dose and continue your regular dosing schedule. Do not take a double dose to make up for a missed one. What SIDE EFFECTS can this medicine cause? If you experience either of the following symptoms, call your doctor immediately: ?? rash ?? itching Methocarbamol may cause other side effects. Call your doctor if you have any unusual problems whileyou are taking this medication. If you experience a serious side effect, you or your doctor may send a report to the Food and Drug Administration's (FDA) MedWatch Adverse Event Reporting program online (https://www.fda.gov/Safety/MedWatch) or by phone ( ). What should I know about STORAGE and DISPOSAL of this medication? Keep this medication in the container it came in, tightly closed, and out of reach of children. Store it at room temperature and away from excess heat and moisture (not in the bathroom). Unneeded medications should be disposed of in special ways to ensure that pets, children, and otherpeople cannot consume them. However, you should not flush this medication down the toilet. Instead,the best way to dispose of your medication is through a medicine take-back program. Talk to your pharmacist or contact your local garbage/recycling department to learn about take-back programs in your community. See the FDA's Safe Disposal of Medicines website (https://goo.gl/c4Rm4p) for more information if you do not have access to a take-back program. It is important to keep all medication out of sight and reach of children as many containers (such as weekly pill minders and those for eye drops, creams, patches, and inhalers) are not child-resistant and young children can open them easily. To protect young children from poisoning, always lock safety caps and immediately place the medication in a safe location - one that is up and away and out of their sight and reach. https://www.upandaway.org What should I do in case of OVERDOSE? In case of overdose, call the poison control helpline at . Information is also available online at https://www.poisonhelp.org/help. If the victim has collapsed, had a seizure, has trouble breathing, or can't be awakened, immediately call emergency services at [phone]. What OTHER INFORMATION should I know? Keep all appointments with your doctor. Do not let anyone else take your medication. Ask your pharmacist any questions you have about refilling your prescription. It is important for you to keep a written list of all of the prescription and nonprescription (iqxa-tdu-ztssjcw) medicines you are taking, as well as any products such as vitamins, minerals, or otherdietary supplements. You should bring this list with you each time you visit a doctor or if you areadmitted to a hospital. It is also important information to carry with you in case of emergencies. This report on medications is for your information only, and is not considered individual patient advice. Because of the changing nature of drug information, please consult your physician or pharmacist about specific clinical use. The [employer] represents that the information provided hereunder was formulated with a reasonable standard of care, and in conformity with professional standards in the field. [employer] makes no representations or warranties, express or implied, including, but not limited to, any implied warranty of merchantability and/or fitness for a particular purpose, with respect to such information and specifically disclaims all such warranties. Users are advised that decisions regarding drug therapy are complex medical decisions requiring the independent, informed decision of an appropriate health long term care social worker, and the information is provided for informational purposes only. The entire monograph for a drug should be reviewed for a thorough understanding of the drug's actions, uses and side effects. The [employer] does not endorse or recommend the use of any drug.The information is not a substitute for medical care. AHFS?? Patient Medication Information?. ?? Copyright, 2023. The [employer]??, [address], [address], [place], [place]. All Rights Reserved. Duplication for commercial use must be authorized by [facility]. Selected Revisions: September 28, 2016. AHFS?? Patient Medication Information?. ?? Copyright, 2024 * Can Alex - Amy Sultana RN - 06/21/2024 12:26 PM EDT Images from the original note were not included. [id number] Aspirin Brand Name(s): Acuprin??, Anacin?? Aspirin Regimen, Ascriptin??, Aspergum??, Aspidrox??, Aspir-Mox??, Aspirtab??, Aspir-risa??, Wan?? Aspirin, Bufferin??, Buffex??, Easprin??, Ecotrin??, Empirin??,Entaprin??, Entercote??, Fasprin??, Genacote??, Gennin-FC??, Genprin??, Halfprin??, Magnaprin??, Miniprin??, Minitabs??, Ridiprin??, Sloprin??, Uni-Buff??, Uni-Tren??, Valomag??, Zorprin??, Paula-Mcdonough?? (as a combination product containing Aspirin, Citric Acid, Sodium Bicarbonate), Paula-Mcdonough??Extra Strength (as a combination product containing Aspirin, Citric Acid, Sodium Bicarbonate), Paula-Mcdonough?? Morning Relief (as a combination product containing Aspirin, Caffeine), Paula-Mcdonough?? Plus Flu (as a combination product containing Aspirin, Chlorpheniramine, Dextromethorphan), Paula-Mcdonough?? PM (as a combination product containing Aspirin, Diphenhydramine), Alor?? (as a combination product containing Aspirin, Hydrocodone), Anacin?? (as a combination product containing Aspirin, Caffeine), Anacin?? Advanced Headache Formula (as a combination product containing Acetaminophen, Aspirin,Caffeine), Aspircaf?? (as a combination product containing Aspirin, Caffeine), Axotal?? (as a combination product containing Aspirin, Butalbital), Azdone?? (as a combination product containing Aspirin, Hydrocodone), Wan?? Aspirin Plus Calcium (as a combination product containing Aspirin, Calcium Carbonate), Wan?? Aspirin PM (as a combination product containing Aspirin, Diphenhydramine), Wan?? Back and Body Pain (as a combination product containing Aspirin, Caffeine), BC Headache (as a combination product containing Aspirin, Caffeine, Salicylamide), BC Powder (as a combination product containing Aspirin, Caffeine, Salicylamide), Damason-P?? (as a combination product containing Aspirin,Hydrocodone), Emagrin?? (as a combination product containing Aspirin, Caffeine, Salicylamide), Endodan?? (as a combination product containing Aspirin, Oxycodone), Equagesic?? (as a combination product containing Aspirin, Meprobamate), Excedrin?? (as a combination product containing Acetaminophen, Aspirin, Caffeine), Excedrin Back & Body (as a combination product containing Acetaminophen, Aspirin), Goody's?? Body Pain (as a combination product containing Acetaminophen, Aspirin), Levacet?? (as a combination product containing Acetaminophen, Aspirin, Caffeine, Salicylamide), Lortab?? ASA (as a combination product containing Aspirin, Hydrocodone), Micrainin?? (as a combination product containing Aspirin, Meprobamate), Momentum?? (as a combination product containing Aspirin, Phenyltoloxamine), Norgesic?? (as a combination product containing Aspirin, Caffeine, Orphenadrine), Orphengesic?? (as a combination product containing Aspirin, Caffeine, Orphenadrine), Panasal?? (as a combination product containing Aspirin, Hydrocodone), Percodan?? (as a combination product containing Aspirin, Oxycodone), Robaxisal?? (as a combination product containing Aspirin, Methocarbamol), Roxiprin?? (as a combination product containing Aspirin, Oxycodone), Saleto?? (as a combination product containing Acetaminophen, Aspirin, Caffeine, Salicylamide), Soma?? Compound (as a combination product containing Aspirin, Carisoprodol), Soma?? Compound with Codeine (as a combination product containing Aspirin, Carisoprodol, Codeine), Supac?? (as a combination product containing Acetaminophen, Aspirin, Caffeine), Synalgos-DC?? (as a combination product containing Aspirin, Caffeine, Dihydrocodeine), Talwin? ? Compound (as a combination product containing Aspirin, Pentazocine), Vanquish?? (as a combinationproduct containing Acetaminophen, Aspirin, Caffeine); also available generically Acetylsalicylic acid, ASA WHY is this medicine prescribed? Prescription aspirin is used to relieve the symptoms of rheumatoid arthritis (arthritis caused by swelling of the lining of the joints), osteoarthritis (arthritis caused by breakdown of the lining ofthe joints), systemic lupus erythematosus (condition in which the immune system attacks the joints and organs and causes pain and swelling) and certain other rheumatologic conditions (conditions in which the immune system attacks parts of the body). Nonprescription aspirin is used to reduce fever and to relieve mild to moderate pain from headaches, menstrual periods, arthritis, toothaches, and muscle aches. Nonprescription aspirin is also used to prevent heart attacks in people who have had a heart attack in the past or who have angina (chest pain that occurs when the heart does not get enough oxygen). Nonprescription aspirin is also used to reduce the risk of in people who are experiencing or who have recently experienced a heart attack. Nonprescription aspirin is also used to prevent ischemic strokes (strokes that occur when a blood clot blocks the flow of blood to the brain) ormini-strokes (strokes that occur when the flow of blood to the brain is blocked for a short time) in people who have had this type of stroke or mini-stroke in the past. Aspirin will not prevent hemorrhagic strokes (strokes caused by bleeding in the brain). Aspirin is in a group of medications called salicylates. It works by stopping the production of certain natural substances that cause fever, pain, swelling, and blood clots. Aspirin is also available in combination with other medications such as antacids, pain relievers, and cough and cold medications. This monograph only includes information about the use of aspirin alone. If you are taking a combination product, read the information on the package or prescription label or ask your doctor or pharmacist for more information. HOW should this medicine be used? Prescription aspirin comes as an extended-release (long-acting) tablet. Nonprescription aspirin comes as a regular tablet, a delayed-release (releases the medication in the intestine to prevent damage to the stomach) tablet, a chewable tablet, powder, and a gum to take by mouth. Prescription aspirin is usually taken two or more times a day. Nonprescription aspirin is usually taken once a day to lower the risk of a heart attack or stroke. Nonprescription aspirin is usually taken every 4 to 6 hours as needed to treat fever or pain. Follow the directions on the package or prescription label carefully, and ask your doctor or pharmacist to explain any part you do not understand. Take aspirin exactly as directed. Do not take more or less of it or take it more often than directed by the package label or prescribed by your doctor. Swallow the extended-release tablets whole with a full glass of water. Do not break, crush, or chewthem. Swallow the delayed-release tablets with a full glass of water. Chewable aspirin tablets may be chewed, crushed, or swallowed whole. Drink a full glass of water, immediately after taking these tablets. Ask a doctor before you give aspirin to your child or teenager. Aspirin may cause Aaron's syndrome (a serious condition in which fat builds up on the brain, liver, and other body organs) in children and teenagers, especially if they have a virus such as chicken pox or the flu. If you have had oral surgery or surgery to remove your tonsils in the last 7 days, talk to your doctor about which types of aspirin are safe for you. Delayed-release tablets begin to work some time after they are taken. Do not take delayed-release tablets for fever or pain that must be relieved quickly. Stop taking aspirin and call your doctor if your fever lasts longer than 3 days, if your pain lastslonger than 10 days, or if the part of your body that was painful becomes red or swollen. You may have a condition that must be treated by a doctor. Are there OTHER USES for this medicine? Aspirin is also sometimes used to treat rheumatic fever (a serious condition that may develop aftera strep throat infection and may cause swelling of the heart valves) and Kawasaki disease (an illness that may cause heart problems in children). Aspirin is also sometimes used to lower the risk of blood clots in patients who have artificial heart valves or certain other heart conditions and to prevent certain complications of . What SPECIAL PRECAUTIONS should I follow? Before taking aspirin, ?? tell your doctor and pharmacist if you are allergic to aspirin, other medications for pain or fever, tartrazine dye, or any other medications. ?? tell your doctor and pharmacist what prescription and nonprescription medications, vitamins, nutritional supplements, and herbal products you are taking or plan to take. Be sure to mention any of the following: acetazolamide (Diamox); angiotensin-converting enzyme (RYANNE) inhibitors such as benazepril (Lotensin), captopril (Capoten), enalapril (Vasotec), fosinopril (Monopril), lisinopril (Prinivil, Zestril), moexipril (Univasc), perindopril, (Aceon), quinapril (Accupril), ramipril (Altace), and trandolapril (Mavik); anticoagulants ('blood thinners') such as warfarin (Coumadin) and heparin; beta blockers such as atenolol (Tenormin), labetalol (Normodyne), metoprolol (Lopressor, Toprol XL), nadolol (Corgard), and propranolol (Inderal); diuretics ('water pills'); medications for diabetes orarthritis; medications for gout such as probenecid and sulfinpyrazone (Anturane); methotrexate (Trexall); other nonsteroidal anti-inflammatory drugs (NSAIDs) such as naproxen (Aleve, Naprosyn); phenytoin (Dilantin); and valproic acid (Depakene, Depakote). Your doctor may need to change the doses ofyour medications or monitor you more carefully for side effects. ?? if you are taking aspirin on a regular basis to prevent heart attack or stroke, do not take ibuprofen (Advil, Motrin) to treat pain or fever without talking to your doctor. Your doctor will probably tell you to allow some time to pass between taking your daily dose of aspirin and taking a dose of ibuprofen. ?? tell your doctor if you have or have ever had asthma, frequent stuffed or runny nose, or nasal polyps (growths on the linings of the nose). If you have these conditions, there is a risk that you will have an allergic reaction to aspirin. Your doctor may tell you that you should not take aspirin. ?? tell your doctor if you often have heartburn, upset stomach, or stomach pain and if you have or have ever had ulcers, anemia, bleeding problems such as hemophilia, or kidney or liver disease. ?? tell your doctor if you are , you plan to become , or if you are breast-feeding.Low dose aspirin 81-mg may be taken during , but aspirin doses greater that 81 mg may harmthe fetus and cause problems with delivery if it is taken around 20 weeks or later during . Do not take aspirin doses greater that 81 mg (e.g., 325 mg) around or after 20 weeks of ,unless told to do so by your doctor. If you become while taking aspirin or aspirin containing medications, call your doctor. ?? if you are having surgery, including dental surgery, tell the doctor or dentist that you are taking aspirin. ?? if you drink three or more alcoholic drinks every day, ask your doctor if you should take aspirin or other medications for pain and fever. What SPECIAL DIETARY instructions should I follow? Unless your doctor tells you otherwise, continue your normal diet. What should I do IF I FORGET to take a dose? If your doctor has told you to take aspirin on a regular basis and you miss a dose, take the misseddose as soon as you remember it. However, if it is almost time for the next dose, skip the missed dose and continue your regular dosing schedule. Do not take a double dose to make up for a missed one. What SIDE EFFECTS can this medicine cause? Some side effects can be serious. If you experience any of the following symptoms, call your doctorimmediately: ?? hives ?? rash ?? swelling of the eyes, face, lips, tongue, or throat ?? wheezing or difficulty breathing ?? hoarseness ?? fast heartbeat ?? fast breathing ?? cold, clammy skin ?? ringing in the ears ?? loss of hearing ?? bloody vomit ?? vomit that looks like coffee grounds ?? bright red blood in stools ?? black or tarry stools Aspirin may cause other side effects. Call your doctor if you experience any unusual problems whileyou are taking this medication. If you experience a serious side effect, you or your doctor may send a report to the Food and Drug Administration's (FDA) MedWatch Adverse Event Reporting program online (https://www.fda.gov/Safety/MedWatch) or by phone ( ). What should I know about STORAGE and DISPOSAL of this medication? Keep this medication in the container it came in, tightly closed, and out of reach of children. Store it at room temperature and away from excess heat and moisture (not in the bathroom). Dispose of any tablets that have a strong vinegar smell. It is important to keep all medication out of sight and reach of children as many containers (such as weekly pill minders and those for eye drops, creams, patches, and inhalers) are not child-resistant and young children can open them easily. To protect young children from poisoning, always lock safety caps and immediately place the medication in a safe location - one that is up and away and out of their sight and reach. https://www.[employer].org Unneeded medications should be disposed of in special ways to ensure that pets, children, and otherpeople cannot consume them. However, you should not flush this medication down the toilet. Instead,the best way to dispose of your medication is through a medicine take-back program. Talk to your pharmacist or contact your local garbage/recycling department to learn about take-back programs in your community. See the FDA's Safe Disposal of Medicines website (https://goo.gl/c4Rm4p) for more information if you do not have access to a take-back program. What should I do in case of OVERDOSE? In case of overdose, call the poison control helpline at . Information is also available online at https://www.poisonhelp.org/help. If the victim has collapsed, had a seizure, has trouble breathing, or can't be awakened, immediately call emergency services at 181. Symptoms of overdose may include: ?? burning pain in the throat or stomach ?? vomiting ?? decreased urination ?? fever ?? restlessness ?? irritability ?? talking a lot and saying things that do not make sense ?? fear or nervousness ?? dizziness ?? double vision ?? uncontrollable shaking of a part of the body ?? confusion ?? abnormally excited mood ?? hallucination (seeing things or hearing voices that are not there) ?? seizures ?? drowsiness ?? loss of consciousness for a period of time What OTHER INFORMATION should I know? Keep all appointments with your doctor. If you are taking prescription aspirin, do not let anyone else take your medication. Ask your pharmacist any questions you have about refilling your prescription. It is important for you to keep a written list of all of the prescription and nonprescription (gvgb-bhp-rmrmlmi) medicines you are taking, as well as any products such as vitamins, minerals, or otherdietary supplements. You should bring this list with you each time you visit a doctor or if you areadmitted to a hospital. It is also important information to carry with you in case of emergencies. This report on medications is for your information only, and is not considered individual patient advice. Because of the changing nature of drug information, please consult your physician or pharmacist about specific clinical use. The [employer] represents that the information provided hereunder was formulated with a reasonable standard of care, and in conformity with professional standards in the field. The [employer] makes no representations or warranties, express or implied, including, but not limited to, any implied warranty of merchantability and/or fitness for a particular purpose, with respect to such information and specifically disclaims all such warranties. Users are advised that decisions regarding drug therapy are complex medical decisions requiring the independent, informed decision of an appropriate health long term care social worker, and the information is provided for informational purposes only. The entire monograph for a drug should be reviewed for a thorough understanding of the drug's actions, uses and side effects. The [employer] does not endorse or recommend the use of any drug.The information is not a substitute for medical care. AHFS?? Patient Medication Information?. ?? Copyright, 2023. The [employer]??, [address], [address], [place], [place]. All Rights Reserved. Duplication for commercial use must be authorized by [facility]. Selected Revisions: June 28, 2020. AHFS?? Patient Medication Information?. ?? Copyright, 2024 * [facility] - Amy Sultana RN - 06/21/2024 12:26 PM EDT Images from the original note were not included. [id number] Acetaminophen Brand Name(s): Actamin??, Feverall??, Panadol??, Tempra Quicklets??, Tylenol??, Dayquil?? (as a combination product containing Acetaminophen, Dextromethorphan, Pseudoephedrine), NyQuil Cold/Flu Relief?? (as a combination product containing Acetaminophen, Dextromethorphan, Doxylamine), Percocet?? (as a combination product containing Acetaminophen, Oxycodone) APAP, V-gijilx-iqvz-aminophenol, Paracetamol IMPORTANT WARNING: Taking too much acetaminophen can cause liver damage, sometimes serious enough to require liver transplantation or cause . You might accidentally take too much acetaminophen if you do not followthe directions on the prescription or package label carefully, or if you take more than one productthat contains acetaminophen. To be sure that you take acetaminophen safely, you should ?? not take more than one product that contains acetaminophen at a time. Read the labels of all theprescription and nonprescription medications you are taking to see if they contain acetaminophen. Be aware that abbreviations such as APAP, AC, Acetaminophen, Acetaminoph, Acetaminop, Acetamin, or Acetam. may be written on the label in place of the word acetaminophen. Ask your doctor or pharmacist i f you don't know if a medication that you are taking contains acetaminophen. ?? take acetaminophen exactly as directed on the prescription or package label. Do not take more acetaminophen or take it more often than directed, even if you still have fever or pain. Ask your doctor or pharmacist if you do not know how much medication to take or how often to take your medication. Call your doctor if you still have pain or fever after taking your medication as directed. ?? be aware that you should not take more than 4000 mg of acetaminophen per day. If you need to take more than one product that contains acetaminophen, it may be difficult for you to calculate the total amount of acetaminophen you are taking. Ask your doctor or pharmacist to help you. ?? tell your doctor if you have or have ever had liver disease. ?? not take acetaminophen if you drink three or more alcoholic drinks every day. Talk to your doctor about the safe use of alcohol while you are taking acetaminophen. ?? stop taking your medication and call your doctor right away if you think you have taken too muchacetaminophen, even if you feel well. Talk to your pharmacist or doctor if you have questions about the safe use of acetaminophen or acetaminophen-containing products. WHY is this medicine prescribed? Acetaminophen is used to relieve mild to moderate pain from headaches, muscle aches, menstrual periods, colds and sore throats, toothaches, backaches, reactions to vaccinations (shots), and to reducefever. Acetaminophen may also be used to relieve the pain of osteoarthritis (arthritis caused by the breakdown of the lining of the joints). Acetaminophen is in a class of medications called analgesics (pain relievers) and antipyretics (fever reducers). It works by changing the way the body senses pain and by cooling the body. HOW should this medicine be used? Acetaminophen comes as a tablet, chewable tablet, capsule, suspension or solution (liquid), extended-release (long-acting) tablet, and orally disintegrating tablet (tablet that dissolves quickly in the mouth), to take by mouth, with or without food. Acetaminophen is available without a prescription, but your doctor may prescribe acetaminophen to treat certain conditions. Follow the directions on the package or prescription label carefully, and ask your doctor or pharmacist to explain any part you do not understand. If you are giving acetaminophen to your child, read the package label carefully to make sure that it is the right product for the age of the child. Do not give children acetaminophen products that are made for adults. Some products for adults and older children may contain too much acetaminophen for a younger child. Check the package label to find out how much medication the child needs. If you know how much your child weighs, give the dose that matches that weight on the chart. If you don't know your child's weight, give the dose that matches your child's age. Ask your child's doctor if you don't know how much medication to give your child. Acetaminophen comes in combination with other medications to treat cough and cold symptoms. Ask your doctor or pharmacist for advice on which product is best for your symptoms. Check nonprescription cough and cold product labels carefully before using two or more products at the same time. These products may contain the same active ingredient(s) and taking them together could cause you to receivean overdose. This is especially important if you will be giving cough and cold medications to a child. Swallow the extended-release tablets whole; do not split, chew, crush, or dissolve them. Place the orally disintegrating tablet ('Meltaways') in your mouth and allow it to dissolve, or chew it before swallowing. Shake the suspension well before each use to mix the medication evenly. Always use the measuring cup or syringe provided by the contract project manager to measure each dose of the solution or suspension. Do notswitch dosing devices between different products; always use the device that comes in the product packaging. Stop taking acetaminophen and call your doctor if your symptoms get worse, you develop new or unexpected symptoms, including redness or swelling, your pain lasts for more than 10 days, or your fever gets worse or lasts more than 3 days. Also stop giving acetaminophen to your child and call your child's doctor if your child develops new symptoms, including redness or swelling, or if your child's pain lasts for longer than 5 days, or if a fever gets worse or lasts longer than 3 days. Do not give acetaminophen to a child who has a sore throat that is severe or does not go away, or that occurs along with fever, headache, rash, nausea, or vomiting. Call the child's doctor right away, because these symptoms may be signs of a more serious condition. Are there OTHER USES for this medicine? Acetaminophen may also be used in combination with aspirin and caffeine to relieve the pain associated with migraine headache. This medication is sometimes prescribed for other uses; ask your doctor or pharmacist for more information. What SPECIAL PRECAUTIONS should I follow? Before taking acetaminophen, ?? tell your doctor and pharmacist if you are allergic to acetaminophen, any other medications, or any of the ingredients in the product. Ask your pharmacist or check the label on the package for a list of ingredients. ?? tell your doctor and pharmacist what prescription and nonprescription medications, vitamins, nutritional supplements, or herbal products you are taking or plan to take while taking acetaminophen. Your doctor may need to change the doses of your medications or monitor you carefully for side effects. ?? The following nonprescription products may interact with acetaminophen: medications for pain, coughs, fever, and colds. Be sure to let your doctor and pharmacist know that you are taking these medications before you start taking acetaminophen. Do not start any of these medications while taking acetaminophen without discussing with your healthcare provider. ?? tell your doctor if you have ever developed a rash after taking acetaminophen. ?? tell your doctor if you are , plan to become , or are breast- feeding. If you become while taking acetaminophen, call your doctor. ?? if you drink three or more alcoholic beverages every day, do not take acetaminophen. Ask your doctor or pharmacist about the safe use of alcoholic beverages while taking acetaminophen. ?? you should know that combination acetaminophen products for cough and colds that contain nasal decongestants, antihistamines, cough suppressants, and expectorants should not be used in children younger than 2 years of age. Use of these medications in young children can cause serious and life-threatening effects or . In children 2 through 11 years of age, combination cough and cold products should be used carefully and only according to the directions on the label. ?? if you have phenylketonuria (PKU, an inherited condition in which a special diet must be followed to prevent damage to your brain that can cause severe intellectual disability), you should know that some brands of acetaminophen chewable tablets may be sweetened with aspartame, a source of phenylalanine. What SPECIAL DIETARY instructions should I follow? Unless your doctor tells you otherwise, continue your normal diet. What should I do IF I FORGET to take a dose? This medication is usually taken as needed. If your doctor has told you to take acetaminophen regularly, take the missed dose as soon as you remember it. However, if it is almost time for the next dose, skip the missed dose and continue your regular dosing schedule. Do not take a double dose to make up for a missed one. What SIDE EFFECTS can this medicine cause? Some side effects can be serious. If you experience any of the following symptoms, stop taking acetaminophen and call your doctor immediately or get emergency medical attention: ?? red, peeling or blistering skin ?? rash ?? hives ?? itching ?? swelling of the face, throat, tongue, lips, eyes, hands, feet, ankles, or lower legs ?? hoarseness ?? difficulty breathing or swallowing Acetaminophen may cause other side effects. Call your doctor if you have any unusual problems whileyou are taking this medication. If you experience a serious side effect, you or your doctor may send a report to the Food and Drug Administration's (FDA) MedWatch Adverse Event Reporting program online (https://www.fda.gov/Safety/MedWatch) or by phone ( ). What should I know about STORAGE and DISPOSAL of this medication? Keep this medication in the container it came in, tightly closed, and out of reach of children. Store it at room temperature and away from excess heat and moisture (not in the bathroom). It is important to keep all medication out of sight and reach of children as many containers (such as weekly pill minders and those for eye drops, creams, patches, and inhalers) are not child-resistant and young children can open them easily. To protect young children from poisoning, always lock safety caps and immediately place the medication in a safe location - one that is up and away and out of their sight and reach. https://www.[employer].org Unneeded medications should be disposed of in special ways to ensure that pets, children, and otherpeople cannot consume them. However, you should not flush this medication down the toilet. Instead,the best way to dispose of your medication is through a medicine take-back program. Talk to your pharmacist or contact your local garbage/recycling department to learn about take-back programs in your community. See the FDA's Safe Disposal of Medicines website (https://goo.gl/c4Rm4p) for more information if you do not have access to a take-back program. What should I do in case of OVERDOSE? In case of overdose, call the poison control helpline at . Information is also available online at https://www.poisonhelp.org/help. If the victim has collapsed, had a seizure, has trouble breathing, or can't be awakened, immediately call emergency services at 911. If someone takes more than the recommended dose of acetaminophen, get medical help immediately, even if the person does not have any symptoms. Symptoms of overdose may include the following: ?? nausea ?? vomiting ?? loss of appetite ?? sweating ?? extreme tiredness ?? unusual bleeding or bruising ?? pain in the upper right part of the stomach ?? yellowing of the skin or eyes ?? flu-like symptoms What OTHER INFORMATION should I know? Before having any laboratory test, tell your doctor and the laboratory personnel that you are taking acetaminophen. Ask your pharmacist any questions you have about acetaminophen. It is important for you to keep a written list of all of the prescription and nonprescription (libt-pzl-sphpkxe) medicines you are taking, as well as any products such as vitamins, minerals, or otherdietary supplements. You should bring this list with you each time you visit a doctor or if you areadmitted to a hospital. It is also important information to carry with you in case of emergencies. This report on medications is for your information only, and is not considered individual patient advice. Because of the changing nature of drug information, please consult your physician or pharmacist about specific clinical use. The [employer] represents that the information provided hereunder was formulated with a reasonable standard of care, and in conformity with professional standards in the field. The [employer] makes no representations or warranties, express or implied, including, but not limited to, any implied warranty of merchantability and/or fitness for a particular purpose, with respect to such information and specifically disclaims all such warranties. Users are advised that decisions regarding drug therapy are complex medical decisions requiring the independent, informed decision of an appropriate health long term care social worker, and the information is provided for informational purposes only. The entire monograph for a drug should be reviewed for a thorough understanding of the drug's actions, uses and side effects. The [employer] does not endorse or recommend the use of any drug.The information is not a substitute for medical care. AHFS?? Patient Medication Information?. ?? Copyright, 2023. The [employer]??, [address], [address], [place], [place]. All Rights Reserved. Duplication for commercial use must be authorized by [facility]. Selected Revisions: October 29, 2022. AHFS?? Patient Medication Information?. ?? Copyright, 2024 * Care Plan - Amy Sultana RN - 06/21/2024 11:53 AM EDT Problem: Adult Inpatient Plan of Care Goal: Plan of Care Review Outcome: Ongoing, Progressing Flowsheets (Taken 06/21/2024 1153) Progress: improving Plan of Care Reviewed With: patient Goal: Patient-Specific Goal (Individualized) Outcome: Ongoing, Progressing Flowsheets (Taken 06/21/2024 0800) Patient/Family-Specific Goals (Include Timeframe): Pt will actively participate in colostomy care. Individualized Care Needs: Safety and education Anxieties, Fears or Concerns: Concerns about wanting rest Goal: Absence of Hospital-Acquired Illness or Injury Outcome: Ongoing, Progressing Goal: Optimal Comfort and Wellbeing Outcome: Ongoing, Progressing Goal: Readiness for Transition of Care Outcome: Ongoing, Progressing Problem: Infection Goal: Absence of Infection Signs and Symptoms Outcome: Ongoing, Progressing Problem: Self-Care Deficit Goal: Improved Ability to Complete Activities of Daily Living Outcome: Ongoing, Progressing Problem: Oral Intake Inadequate Goal: Improved Oral Intake Outcome: Ongoing, Progressing * Discharge Summary - Trinity Yousif APRN - 06/21/2024 11:49 AM EDT Hospitalization Admit Date/Time: 05/01/2024 11:01 PM Admitting Attending: Maite Austin Discharge Date: 06/21/2024 Discharge Attending Physician: Maite Austin MD PCP name and Address: Pcp, Katherine [address] [place] [id number] Referring provider name and address: No referring provider defined for this encounter. Chief Concern, Brief History of Present Illness, and Hospital Course Ms. Rere Hunter is a 53 year old with PMH significant for anxiety, depression, COPD, and tobacco abuse. She initially presented to [facility]. She ruled in for NSTEMI and underwent cardiac catheterization. She was found to have multivessel CAD with critical left main stenosis. She was transferred to for surgical revascularization evaluation. She is now s/p CABG x 4 on 05/06. Postoperative course complicated by ileus s/p exploratory lap, extended left colectomy and end colostomy creation on 05/23 for colonic perforation. This was followed by US guided drain placement by IR on 06/04 for fluid collection in the abdomen (perisplenic). Ms. Rere Hunter didn't have any significant intraoperative complications. Patient was extubated without difficulty and oxygen was weaned as tolerated. Patient was able to tolerate advancement of diet. She is voiding without difficulty and having regular bowel movements. Pain is adequately controlled with oral pain medications. Surgical incision is clean, dry, and intact without obvious signs of infection. Patient was seen and evalaluted during morning rounds and deemed appropriate for discharge at this time. All discharge instructions and medications were reviewed with the patient and family. Questions answered, follow up as below. Patient discharged in stable condition with the assistance of Family. Surgeries and Procedures Procedures performed in this encounter Procedures Case Request Operating Room: LAPAROTOMY, EXPLORATORY, possible bowel resection, possible ostomy Critical Care Critical Care Critical Care Critical Care Critical Care Critical Care Critical Care Critical Care Critical Care Critical Care Critical Care Critical Care Critical Care Critical Care Wound Vac Placement Wound Vac Placement LAPAROTOMY, EXPLORATORY, possible bowel resection, possible ostomy (N/A), COLECTOMY, PARTIAL (Left) Coronary artery bypass grafting x4 with CHOWDARY to LAD as a free graft, reverse saphenous vein graft sequential to ramus intermedius artery then to obtuse marginal artery 1, reverse saphenous vein graftto PDA. Medication List .. acetaminophen 500 MG tablet Commonly known as: Tylenol Take 2 tablets by mouth every 6 hours as needed for pain, headaches or fever. aspirin 81 MG chewable tablet Chew 1 tablet daily. Start taking on: June 22, 2024 buPROPion XL 300 MG 24 hr tablet Commonly known as: Wellbutrin XL take 1 tablet by mouth every 24 hours citalopram 40 MG tablet Commonly known as: CeleXA Take 1 tablet by mouth. Combivent Respimat 20-100 MCG/ACT inhaler Generic drug: ipratropium-albuterol fluticasone 50 MCG/ACT nasal spray Commonly known as: Flonase Administer 2 sprays into each nostril daily as needed. hydrOXYzine HCl 10 MG tablet Commonly known as: Atarax Take 1 tablet (10 mg) by mouth every 8 hours as needed. loratadine 10 MG tablet Commonly known as: Claritin Take 1 tablet (10 mg) by mouth daily. methocarbamol 500 MG tablet Commonly known as: Robaxin Take 2 tablets by mouth 4 times a day for 10 days. metoprolol tartrate 25 MG tablet Commonly known as: Lopressor Take 1 tablet by mouth 2 times a day. naloxone 4 mg/0.1 mL nasal spray Commonly known as: Narcan 1. Give 1 spray in nostril for no/slow breathing or cannot wake after opioid use 2. Call 911 3. Repeat in other nostril if symptoms continue oxyCODONE 5 MG immediate release tablet Commonly known as: Roxicodone Take 1 tablet by mouth every 8 hours as needed for severe pain for up to 3 days. primidone 50 MG tablet Commonly known as: Mysoline Take 1 tablet (50 mg) by mouth every 12 (twelve) hours. rosuvastatin 40 MG tablet Commonly known as: Crestor Take 1 tablet by mouth nightly. simethicone 80 MG chewable tablet Commonly known as: Mylicon Chew 1.5 tablets 4 times a day. Where to Get Your Medications These medications were sent to [facility] - [place], [place] - [address] [address] [address] [facility] [id number] acetaminophen 500 MG tablet aspirin 81 MG chewable tablet methocarbamol 500 MG tablet metoprolol tartrate 25 MG tablet naloxone 4 mg/0.1 mL nasal spray oxyCODONE 5 MG immediate release tablet rosuvastatin 40 MG tablet simethicone 80 MG chewable tablet Discharge Diagnosis Multivessel CAD (POA) NSTEMI on presentation S/p CABG x 4 on 05/06 - Patient presented to OSH on 05/01/24 with chest pain where tropon levels were 0.05 > 0.23 > 0.16 & C reveal mvCAD - Coronary artery bypass grafting x4 with CHOWDARY to LAD as a free graft, reverse saphenous vein graftsequential to ramus intermedius artery then to obtuse marginal artery 1, reverse saphenous vein graft to PDA. Greater saphenous vein vessel harvest of left and right side with endoscopic technique - Continue asa, statin, metoprolol - Routine post cardiac surgery care: Sternal precautions x 6 weeks, PT, bowel regimen to prevent constipation and aggressive pulmonary toilet. Ileus (resolving) Gastric Perforation VS Colonic Perforation (resolved) Perisplenic Fluid Collection (resolved) S/p ex lap with left colon resection with end colostomy creation with blue surgery on 05/23/2024 - 06/01: CT abd per Blue surgery giving increasing WBC - 06/02: CT yd with fluid collection consistent with abscess. Started on zosyn yd evening. IR consulted for fluid drainage. Plan for IR procedure on Tuesday - 06/04: S/p Acordian drain placement with IR this AM. Fluid cx pending. Continue zosyn. Blue surg recs: continue zosyn at least 4 days s/p IR drain placement (through 06/08-completed) or change abx based on culture data. - 06/08: Seen by surgery in evening, both drains remain, monitoring output, strip LENA drain BID - 06/13: Both drains remain, continue to monitor - 06/15: IR placed drain removed yesterday - 06/17: complaints of abdominal pain; KUB demonstrates ileus - 06/18: overnight patient inadvertently pulled LENA drain out Leukocytosis (POA) Abdominal Fluid Collection - possible reactive secondary to MS - WBC 12.8, afebrile - continue to monitor - 05/31: WBC 26.51 - 06/01: WBC 33.03. CT abd per blue surgery - 06/02: WBC 33.90. CT yd with fluid collection. Started on zosyn yd evening. IR consulted for fluiddrainage. - 06/03: WBC 20.40. Plan for IR procedure tomorrow - 06/04: WBC 22.10. S/p Drain placement his AM. Fluid cx pending. Continue zosyn. Blue surg recs: continue zosyn at least 4 days s/p IR drain placement or change abx based on culture data. - 06/05: C/O intense ABD pain after eating any food; surgery reassed with recs for no carbonated beverages and encourage mobility, KUB shows gas distribution. WBC count 19.81 - 06/06: Pain continues after eating. WBC 24.98 - 06/07: Channing count in progress. WBC 16.9 - 06/08: WBC 14.57; 06/09 WBC 12.2 - Afebrile, surgery is following - [place] (two black + bridge) MWF by nursing - Gas pain, ostomy functioning appropriately - Follow SGE LENA output (superior drain in fluid cavity near pancreas) - 06/10: WBC 20.16, afebrile - 06/11: Procalcitonin, add diff to CBC, KUB and CXR - 06/13: WBC 14.79, afebrile - 06/14: WBC 21.2, afebrile, Surgery pulled 1 of 2 drains - 06/15: WBC 15.65, afebrile - 06/16: WBC 9.35 - 06/17: WBC 12.53, afebrile - 06/18: WBC 16.58, afebrile - 6: WBC 11.65, afebrile - 06/20: WBC 17.53, afebrile - 06/21: WBC 12.35, afebrile Hypocalcemia (POA) - monitor and replace prn Hypomagnesemia - monitor and replete prn Hyponatremia - fluid restriction Thrombocytosis - platelets 478 - continue to monitor - 06/13: platelets 409 - 2: platelets 437 - 3: platelets 470 - 06/17: platelets 514 - 06/18: platelets 565 - 6: platelets 615 - 06/20: platelets 682 Transaminitis - ALT 122, AST 80, alkphos 258, Tbili 0.3 - improved - 06/13: ALT 99, AST 52, alk phos 212, Tbili 0.3 - 06/15: ALT 59, AST 32, alk phos 181, Tbili 0.3 - 06/16: ALT 55, AST 37, alk phos 170, Tbili 0.3 - 06/17: ALT 87, AST 70, alk phos 172, Tbili 0.3 - 06/18: ALT 72, AST 43, alk phos 164, Tbili 0.3 - 6: ALT 62, AST 37, alk phos 153, Tbili 0.2 - 06/20: ALT 68, AST 45, alk phos 169, Tbili 0.2 - 06/21: ALT 54, AST 31, alk phos 155, Tbili 0.2 Prolonged QT (POA) Sinus tachycardia Incomplete RBBB - continue to monitor rhythm Acute postoperative pain - Abdominal tenderness and pain - MMPC Total Parenteral Nutrition (TPN) (discontinued) - Started on 05/20 - 05/31: Calorie count completed and demonstrated pt was only meeting 12-13% of calorie requirements. Repeat calorie count in progress, to end today 06/07 - Continue TPN until current bag is empty 06/09, then trial discontinuing it - Start marinol - Promote PO intake 06/15: prealbumin 13.3 (up from 6.5 on 05/09) Anxiety (POA) Depression (POA) - Continue home bupropion and citalopram - Vistaril prn COPD (POA) - Duo nebs prn GERD (POA) - 05/07 extubated, not on home PPI, dc'd - 05/08 pt denies any GERD symptoms - 05/09 + PPI for reflux - 05/10 docusate, metoclopramide, miralax, senna, simethicone, continue NG to low intermitted, CLD for pt comfort, passing gas - 05/11 as above denies reflux today NG clamp trial - 05/14 PPI per blue surgery rec for blood tinged NG output - NG now removed Hyperlipidemia (POA) Hypertriglyceridemia (POA) Hypoalphalipoproteinemia (POA) - 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 Continue metoprolol - continue home primidone Tobacco abuse (POA) - complicates all aspects of care - cessation counseling - NRT prn Overweight (POA) (resolved) Delirium (resolved) Acute hypoxic respiratory failure (resolved) Cardiac Volume Overload (resolved) Hypoglycemia (resolved) Hypokalemia (resolved) Thrombocytopenia (POA) (resolved) Hypernatremia (resolved) Hypermagnesemia (resolved) Hyperphosphatemia (resolved) Hypophosphatemia (resolved) MESHA (resolved) Hyperkalemia (resolved) Pleural effusion (resolved) Low cardiac output syndrome (resolved) Nausea with Vomiting (resolved) Acute Blood Loss Anemia (resolved) Plan: Discharge to home today. Cardiothoracic Surgery Post Discharge Instructions See AVS Outpatient Follow-Up Future Appointments Date Time Provider Department Center 06/26/2024 11:00 AM Bc Mckee MD [facility] 07/18/2024 9:00 AM Maite Austin MD [facility] 07/31/2024 9:00 AM Lidia Troncoso MD [facility] Test Results Pending At Discharge None Pertinent Physical Exam At Time of Discharge GENERAL: Well developed, well nourished. No acute distress. RESP/CHEST: Clear to auscultation bilaterally with symmetric expansion; non labored. Sternum stable, sternotomy as noted below. CARD: RRR. S1S2. No murmur, rub, or gallop. No JVD. No lower extremity edema. Pedal pulses palpable+2. Extremities: No cyanosis or clubbing. GI: Soft, nontender, nondistended. SKIN: No rash, sores, lesions or subcutaneous nodules. Midsternal incision healing well, edges wellapproximated. EVH site CDI. Midline abdominal incision with dressing CDI. Colostomy with ostomy bagin place. NEURO: AAOx4. Motor intact and no focal deficits PSYCH: Mood and affect congruent and appropriate to situation. Discharge Disposition/Condition Disposition: Home Condition: Stable (s/sx potential problems absent or manageable) I spent >30 minutes of patient care and instruction time in preparation for this discharge. Cosigned by Maite Austin MD at 06/21/2024 5:30 PM EDT Associated attestation - Maite Austin MD - 06/21/2024 5:30 PM EDT Signature only. * Progress Notes - Teena Jessica - 06/21/2024 11:04 AM EDT Music Therapy Note Session Information: Missed Opportunity: Yes Missed Opportunity Reason: Patient unavailable Subjective: Treatment Goals & Interventions: Communications: Cognitive Responses: Physiological Responses: Heart Rate: Oxygen Saturation: Respiration Rate: Movement/Motor: Behavioral Observations: Musical Responses: Comments: Comments: Pt was on the phone and requested MT return later. Length of Visit: Plan of Care: Plan of Care: Will return at another time * Progress Notes - Lester Lazo RN - 06/20/2024 1:30 PM EDT Ostomy Progress Note Visit Date: 06/20/2024 Patient Name: Rere Hunter Date of : 1970 Education Patient given 3 to 5 pouches, skin prep, powder, and ring/paste until home supplies arrive. other education. CM aware of recs and has placed order into [facility] Wound Ostomy Assessment: Colostomy Transverse RUQ (Active) 05/23/24 RUQ Present on Admission: Earliest Known Present: Placed by External Staff?: Inserted by: Bartolome Hand Hygiene Completed: Yes Colostomy Type: Transverse Stoma Size (cm): Earliest Known Removed: Removal Reason : Stomal Appliance 2 piece;Flat Barrier/Pouch 06/19/242245 Site Assessment Moist;Niota 06/19/242245 Peristomal Assessment Intact;Clean 06/19/242245 Output (mL) 125 mL 06/20/24 0405 Gastric Output Appearance Watery 06/20/245 Gastric Output Color Yellow;Brown 06/20/[address] and no leaking. Pt c/o of nausea and ABD pain, both stool and gas noted in bag, pt with resolving ileus, Pt informed her next change is due Thur or Fri. Lester Lazo RN CWOCN 06/20/2024 1:30 PM * Progress Notes - Lester Lazo RN - 06/20/2024 1:27 PM EDT Images from the original note were not included. Wound Care Consult Visit Date: 06/20/2024 Patient Name: Rere Hunter Date of : 1970 Admit Date: 05/01/2024 Reason for Consult: wound vac dressing Wound History: PMH significant for anxiety, depression, COPD, and tobacco abuse. She initially presented to [facility]. She ruled in for NSTEMI and underwent cardiac catheterization. She was found to have multivessel CAD with critical left main stenosis. She was transferred to for surgical revascularization evaluation. She is now s/p CABG x 4 on 05/06. Postoperative course complicated by ileus s/p exploratory lap, extended left colectomy and end colostomy creation on 05/23 for colonic perforation. This was followed by US guided drain placement by IR on 06/04 for fluid collection in the abdomen (perisplenic). Wound Assessment: Wound 05/23/24 Surgical Abdomen Upper (Active) Date First Assessed/Time First Assessed: 05/23/24 1419 Hand Hygiene Completed: Yes Primary Wound Type: Surgical Location: Abdomen Wound Location Orientation: Upper Assessments 06/20/2024 10:43 AM Wound Image Wound Assessment Red;Granulation (proximal portion now closed and dry) Margins Well-defined edges Jacey-Wound Assessment Intact Wound Length (cm) 2 cm Wound Width (cm) 1 cm Wound Surface Area (cm^2) 1.57 cm^2 Drainage Description Serosanguineous Drainage Amount Scant Treatments Cleansed;Saline Dressing Silver dressing;Hydrofiber;Silicone dressing;Foam Dressing Changed Changed Dressing Status Intact Active Orders Date Order Priority Status Authorizing Provider 06/20/24 1323 Apply/Change Wound Dressing Upper Abdomen Surgical Routine Active Maite Austin MD - Dressing Type: Other Dressings - Dressing Type: Silver dressing - Silver Dressing: Aquacel Ag - Other: Other (Comment) - Other dressing (comment):: ABD incision: proximal incision may be left ANOOP, for distal incision cleanse with NS and apply strip of aquacel AG and allevyn change daily Wound Team Summary Assessment: pt seen for dressing changes to ABD, proximal portion now closed anddry, left ANOOP, distal portion with red granulation, measures 2 x 1 and level with skin will d/c wound vac and switched to aquacel AG and allevyn. Wound Team Plan: Wound care will follow up at regular intervals while inpatient; bedside nursing tofollow wound care recommendations as ordered and please re- consult sooner for new changes or concerns prior to follow up. Lester Lazo RN CWOCN 06/20/2024 1:27 PM * Progress Notes - Trinity Yousif, [employer] - 06/20/2024 10:23 AM EDT CVT Progress Note 24 Hour Events/HPI: Resting quietly in bed. States she didn't sleep at all last night. Denies CP and SOA. States abdominal pain is better, still having low back pain. Afebrile and hemodynamically stable. Tolerating po diet and having bowel movements. Review of Systems: A complete ROS was obtained. All were negative except as noted in HPI. Objective: All laboratory data, images, tracings, and vital sign data for past 24 hours are personally reviewed unless otherwise noted. All images personally reviewed and I agree with the radiology interpretation @PATIENTWT@ , Weight: 61.1 kg (134 lb 12.8 oz) , Ht Readings from Last 1 Encounters: 06/19/24 1.549 m (5' 0.98 ) , Body mass index is 22.51 kg/m??. VITALS (last 24h) Temp: [36.4 ??C (97.6 ??F)-37.1 ??C (98.7 ??F)] 37.1 ??C (98.7 ??F) Heart Rate: [89-101] 93 Resp: [16-18] 18 BP: (102-137)/(61-89) 132/81 Visit Vitals BP 132/81 (BP Location: Right arm, Patient Position: Lying) Pulse 93 Temp 37.1 ??C (98.7 ??F) (Oral) Resp 18 Ht 1.549 m (5' 0.98 ) Wt 54 kg (119 lb 0.8 oz) SpO2 96% BMI 22.51 kg/m?? Smoking Status Every Day BSA 1.52 m?? I & O Summary Intake/Output Summary (Last 24 hours) at 06/20/2024 1023 Last data filed at 06/20/2024 0405 Gross per 24 hour Intake 0 ml Output 2165 ml Net -2165 ml LABS CBC WBC 17.53 (H) Hb 11.2 Plt 682 (H) Hct 34.5 ANC ?? INR ??, PTT ??, Anti-Xa ?? BMP Na 129 (L) Cl 95 (L) BUN 4 (L) Glu 98 K 4.4 Co2 24 Cr 0.59 (L) Ca 7.9 (L) iCa ?? Mg 1.9, Phos ?? Lactate ?? LFT AST 45 (H) AlkPhos 159 (H) T Prot 6.5 ALK 68 (H) Bili 0.2 Alb ?? D.Bili ?? HOURS) MEDICATIONS acetaminophen, 1,000 mg, Oral, q6h LINDA aspirin, 81 mg, Oral, Daily buPROPion XL, 300 mg, Oral, Daily citalopram, 40 mg, Oral, Daily dronabinol, 2.5 mg, Oral, BID AC enoxaparin, 40 mg, Subcutaneous, Daily lactulose, 20 g, Oral, BID lidocaine, 2 patch, Apply externally, q24h melatonin, 6 mg, Oral, Nightly methocarbamol, 1,000 mg, Oral, 4x daily metoprolol tartrate, 25 mg, Oral, BID pantoprazole, 40 mg, Oral, Daily polyethylene glycol, 17 g, Oral, Daily primidone, 50 mg, Oral, BID rosuvastatin, 40 mg, Oral, Nightly sodium chloride, 10 mL, Intravenous, q12h PRN medications: benzocaine-menthol, bisacodyl, calcium carbonate, hydrOXYzine pamoate, ipratropium-albuterol, moisturizing mouth, [DISCONTINUED] ondansetron ODT OR ondansetron OR [DISCONTINUED] ondansetron, oxyCODONE, promethazine OR promethazine OR promethazine, simethicone, sodium chloride, traZODone Physical Exam: GENERAL: Well developed, well nourished. No acute distress. RESP/CHEST: Clear to auscultation bilaterally with symmetric expansion; non labored. Sternum stable, sternotomy as noted below. CARD: RRR. S1S2. No murmur, rub, or gallop. No JVD. No lower extremity edema. Pedal pulses palpable+2. Extremities: No cyanosis or clubbing. GI: Soft, nontender, nondistended. SKIN: No rash, sores, lesions or subcutaneous nodules. Midsternal incision healing well, edges wellapproximated. EVH site CDI. Wound vac to midline abdominal incision. Colostomy with ostomy bag in place. NEURO: AAOx4. Motor intact and no focal deficits PSYCH: Mood and affect congruent and appropriate to situation. Assessment and Plan: Ms. Rere Hunter is a 53 year old with PMH significant for anxiety, depression, COPD, and tobacco abuse. She initially presented to [facility]. She ruled in for NSTEMI and underwent cardiac catheterization. She was found to have multivessel CAD with critical left main stenosis. She was transferred to for surgical revascularization evaluation. She is now s/p CABG x 4 on 05/06. Postoperative course complicated by ileus s/p exploratory lap, extended left colectomy and end colostomy creation on 05/23 for colonic perforation. This was followed by US guided drain placement by IR on 06/04 for fluid collection in the abdomen (perisplenic). Multivessel CAD (POA) NSTEMI on presentation S/p CABG x 4 on 05/06 - Patient presented to OSH on 05/01/24 with chest pain where tropon levels were 0.05 > 0.23 > 0.16 & LHC reveal mvCAD - Coronary artery bypass grafting x4 with CHOWDARY to LAD as a free graft, reverse saphenous vein graftsequential to ramus intermedius artery then to obtuse marginal artery 1, reverse saphenous vein graft to PDA. Greater saphenous vein vessel harvest of left and right side with endoscopic technique - Continue asa, statin, metoprolol - Routine post cardiac surgery care: Sternal precautions x 6 weeks, PT, bowel regimen to prevent constipation and aggressive pulmonary toilet. Ileus Gastric Perforation VS Colonic Perforation Perisplenic Fluid Collection S/p ex lap with left colon resection with end colostomy creation with blue surgery on 05/23/2024 - 06/01: CT abd per Blue surgery giving increasing WBC - 06/02: CT yd with fluid collection consistent with abscess. Started on zosyn yd evening. IR consulted for fluid drainage. Plan for IR procedure on Tuesday - 06/04: S/p Acordian drain placement with IR this AM. Fluid cx pending. Continue zosyn. Blue surg recs: continue zosyn at least 4 days s/p IR drain placement (through 06/08-completed) or change abx based on culture data. - 06/08: Seen by surgery in evening, both drains remain, monitoring output, strip LENA drain BID - 06/13: Both drains remain, continue to monitor - 06/15: IR placed drain removed yesterday - 06/17: complaints of abdominal pain; KUB demonstrates ileus - 06/18: overnight patient inadvertently pulled LENA drain out Leukocytosis (POA) (resolved) Abdominal Fluid Collection - possible reactive secondary to MS - WBC 12.8, afebrile - continue to monitor - 05/31: WBC 26.51 - 06/01: WBC 33.03. CT abd per blue surgery - 06/02: WBC 33.90. CT yd with fluid collection. Started on zosyn yd evening. IR consulted for fluiddrainage. - 06/03: WBC 20.40. Plan for IR procedure tomorrow - 06/04: WBC 22.10. S/p Drain placement his AM. Fluid cx pending. Continue zosyn. Blue surg recs: continue zosyn at least 4 days s/p IR drain placement or change abx based on culture data. - 06/05: C/O intense ABD pain after eating any food; surgery reassed with recs for no carbonated beverages and encourage mobility, KUB shows gas distribution. WBC count 19.81 - 06/06: Pain continues after eating. WBC 24.98 - 06/07: Channing count in progress. WBC 16.9 - 06/08: WBC 14.57; 06/09 WBC 12.2 - Afebrile, surgery is following - [place] (two black + bridge) MWF by nursing - Gas pain, ostomy functioning appropriately - Follow SGE LENA output (superior drain in fluid cavity near pancreas) - 06/10: WBC 20.16, afebrile - 06/11: Procalcitonin, add diff to CBC, KUB and CXR - 06/13: WBC 14.79, afebrile - 06/14: WBC 21.2, afebrile, Surgery pulled 1 of 2 drains - 06/15: WBC 15.65, afebrile - 06/16: WBC 9.35 - 06/17: WBC 12.53, afebrile - 06/18: WBC 16.58, afebrile - 06/19: WBC 11.65, afebrile - 06/20: WBC 17.53, afebrile Acute Blood Loss Anemia - Monitor and transfuse for Hgb < 711 - 06/01: H/H 9.7/29.3 - 06/10: H/H 10.2/32 - 06/12: 9.3/29.4 - 06/13: H/H 9.8/30.5 - /2: H/H 10.3/31.8 - 3: H/H 10.2/30.1 - 4: H/H 10.4/31.9 - 5: H/H 11.0/33.7 - 6: H/H 10.7/33.1 - 06/20: H/H 11.2/34.5 (resolved) Hypocalcemia (POA) - monitor and replace prn Hypomagnesemia - monitor and replete prn Hyponatremia - fluid restriction Thrombocytosis - platelets 478 - continue to monitor - 06/13: platelets 409 - /2: platelets 437 - 3: platelets 470 - 06/17: platelets 514 - 06/18: platelets 565 - 6: platelets 615 - 06/20: platelets 682 Transaminitis - ALT 122, AST 80, alkphos 258, Tbili 0.3 - improved - 06/13: ALT 99, AST 52, alk phos 212, Tbili 0.3 - 06/15: ALT 59, AST 32, alk phos 181, Tbili 0.3 - 06/16: ALT 55, AST 37, alk phos 170, Tbili 0.3 - 06/17: ALT 87, AST 70, alk phos 172, Tbili 0.3 - 06/18: ALT 72, AST 43, alk phos 164, Tbili 0.3 - 6: ALT 62, AST 37, alk phos 153, Tbili 0.2 - 06/20: ALT 68, AST 45, alk phos 169, Tbili 0.2 Prolonged QT (POA) Sinus tachycardia Incomplete RBBB - continue to monitor rhythm Acute postoperative pain - Abdominal tenderness and pain - MMPC Total Parenteral Nutrition (TPN) (discontinued) - Started on 05/20 - 05/31: Calorie count completed and demonstrated pt was only meeting 12-13% of calorie requirements. Repeat calorie count in progress, to end today 06/07 - Continue TPN until current bag is empty 06/09, then trial discontinuing it - Start marinol - Promote PO intake 06/15: prealbumin 13.3 (up from 6.5 on 05/09) Anxiety (POA) Depression (POA) - Continue home bupropion and citalopram - Vistaril prn COPD (POA) - Duo nebs prn GERD (POA) - 05/07 extubated, not on home PPI, dc'd - 05/08 pt denies any GERD symptoms - 05/09 + PPI for reflux - 05/10 docusate, metoclopramide, miralax, senna, simethicone, continue NG to low intermitted, CLD for pt comfort, passing gas - 05/11 as above denies reflux today NG clamp trial - 05/14 PPI per blue surgery rec for blood tinged NG output - NG now removed Hyperlipidemia (POA) Hypertriglyceridemia (POA) Hypoalphalipoproteinemia (POA) - 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 Continue metoprolol - continue home primidone Tobacco abuse (POA) - complicates all aspects of care - cessation counseling - NRT prn Overweight (POA) (resolved) Delirium (resolved) Acute hypoxic respiratory failure (resolved) Cardiac Volume Overload (resolved) Hypoglycemia (resolved) Hypokalemia (resolved) Thrombocytopenia (POA) (resolved) Hypernatremia (resolved) Hypermagnesemia (resolved) Hyperphosphatemia (resolved) Hypophosphatemia (resolved) MESHA (resolved) Hyperkalemia (resolved) Pleural effusion (resolved) Low cardiac output syndrome (resolved) Nausea with Vomiting (resolved) Plan: Continue current plan of care. Encourage mobilization. Cardiothoracic Surgery [phone] * Clinician Note - Divina Yousif - 06/20/2024 10:13 AM EDT Physical Therapy Attempt Patient Name: Rere Hunter Today's Date: 06/20/2024 Patient was attempted to be seen by physical therapy 06/20/2024 for PT Treatment however patient politely declined. PT provided gentle encouragement and education. Pt continued to refuse, reports she will mobilize with staff pharmacist later this date. Physical therapy team will follow-up as patient is agreeable. Written by Divina Yousif on 06/20/24 at 1:03 PM. * Clinician Note - Keisha Sabillon - 06/20/2024 10:11 AM EDT Occupational Therapy Attempt Patient Name: Rere Hunter Today's Date: 06/20/2024 Patient was attempted to be seen by occupational therapy 06/20/2024 for OT Treatment however patient politely declined. OT provided gentle encouragement and education. Pt continued to refuse, reports she will mobilize with staff pharmacist later this date. Occupational therapy team will follow-up as schedulepermits. Written by Keisha Sabillon on 06/20/24 at 12:39 PM. * Progress Notes - Annika Perez RN - 06/20/2024 7:40 AM EDT Case Management Adult Progress Note Rere Hunter 53 y.o. female CSN: [id number] Admission: 05/01/2024 11:01 PM Primary Problem: CAD, multiple vessel Anticipated Discharge Date: tbd Additional Comments: CM placed wound vac referral with [facility]. Annika Perez RN * Care Plan - Brunilda Dawson RN - 06/19/2024 9:00 PM EDT Problem: Adult Inpatient Plan of Care Goal: Plan of Care Review Outcome: Ongoing, Progressing Flowsheets (Taken 06/20/2024 0501) Progress: no change Plan of Care Reviewed With: patient Problem: Adult Inpatient Plan of Care Goal: Patient-Specific Goal (Individualized) Outcome: Ongoing, Progressing Flowsheets (Taken 06/20/2024 0400) Patient/Family-Specific Goals (Include Timeframe): Pt will remain free from injury for remainder ofshift Individualized Care Needs: Safety Anxieties, Fears or Concerns: None stated * Clinician Note - Duane Amor - 06/19/2024 3:20 PM EDT Physical Therapy Attempt Patient Name: Rere Hunter Today's Date: 06/19/2024 Patient was attempted to be seen by physical therapy 06/19/2024 for PT Treatment however patient politely declined (x2 attempts: Requesting therapy return after lunch due to needing sleep on first attempt; second attempt reported too much stomach pain. RN aware). Physical therapy team will follow-up as patient is agreeable. Written by Duane Amor on 06/19/24 at 3:20 PM. * Progress Notes - Dulce Alamo APRN - 06/19/2024 1:19 PM EDT CVT Progress Note 24 Hour Events/HPI: Pt with acute onset of excruciating ABD pain this morning. Assisted her to the BR and back to be where she had significant gas expel from colostomy with much improvement in discomfort. Discussed importance of increasing movement and being out of bed. Review of Systems: A complete ROS was obtained. All were negative except as noted in HPI. Objective: All laboratory data, images, tracings, and vital sign data for past 24 hours are personally reviewed unless otherwise noted. @PATIENTWT@ , Weight: 61.1 kg (134 lb 12.8 oz) , Ht Readings from Last 1 Encounters: 06/19/24 1.549 m (5' 0.98 ) , Body mass index is 22.09 kg/m??. VITALS (last 24h) Temp: [36.4 ??C (97.6 ??F)-36.9 ??C (98.4 ??F)] 36.4 ??C (97.6 ??F) Heart Rate: [85-101] 101 Resp: [16-18] 18 BP: (94-137)/(59-89) 137/89 Visit Vitals BP 137/89 (BP Location: Right arm, Patient Position: Lying) Pulse 101 Temp 36.4 ??C (97.6 ??F) (Oral) Resp 18 Ht 1.549 m (5' 0.98 ) Wt 53 kg (116 lb 13.5 oz) SpO2 97% BMI 22.09 kg/m?? Smoking Status Every Day BSA 1.51 m?? I & O Summary Intake/Output Summary (Last 24 hours) at 06/19/2024 1319 Last data filed at 06/19/2024 1145 Gross per 24 hour Intake -- Output 1150 ml Net -1150 ml LABS CBC WBC 11.65 (H) Hb 10.7 (L) Plt 615 (H) Hct 33.1 (L) BMP Na 130 (L) Cl 97 BUN 5 (L) Glu 90 K 3.5 (L) Co2 24 Cr 0.69 Ca 8.1 (L) Mg 1.8 (L) LFT AST 37 (H) AlkPhos 153 (H) T Prot 6.5 ALK 62 (H) Bili 0.2 Alb ?? MEDICATIONS acetaminophen, 1,000 mg, Oral, q6h LINDA aspirin, 81 mg, Oral, Daily buPROPion XL, 300 mg, Oral, Daily citalopram, 40 mg, Oral, Daily dronabinol, 2.5 mg, Oral, BID AC enoxaparin, 40 mg, Subcutaneous, Daily lactulose, 20 g, Oral, BID lidocaine, 2 patch, Apply externally, q24h melatonin, 6 mg, Oral, Nightly methocarbamol, 1,000 mg, Oral, 4x daily metoprolol tartrate, 25 mg, Oral, BID pantoprazole, 40 mg, Oral, Daily polyethylene glycol, 17 g, Oral, Daily primidone, 50 mg, Oral, BID rosuvastatin, 40 mg, Oral, Nightly sodium chloride, 10 mL, Intravenous, q12h PRN medications: benzocaine-menthol, bisacodyl, calcium carbonate, hydrOXYzine pamoate, ipratropium-albuterol, moisturizing mouth, [DISCONTINUED] ondansetron ODT OR ondansetron OR [DISCONTINUED] ondansetron, oxyCODONE, promethazine OR promethazine OR promethazine, simethicone, sodium chloride, traZODone No echocardiogram results found for the past 14 days Physical Exam: GENERAL: WD, WN, NAD. EYES: No scleral icterus or conjunctivitis HENT: Atraumatic, normocephalic, nares patent, mucus membranes moist NECK: Supple, trachea midline RESP/CHEST: Symmetric expansion; non labored. CTA bilaterally CARD: Regular rate and rhythm, normal S1 and S2, no murmur, rub, or gallop, Pedal pulses palpable, no JVD. No edema. Sternum stable, incision healing well. EVH site(s) CDI. WV midline ABD incison. Colostomy with reservoir collecting soft brown stool. Extremities: No cyanosis or clubbing GI: Soft, Nontender, nondistended. BS present and normoactive x 4 quadrants SKIN: No rash NEURO: AAO. Motor intact and no focal deficits PSYCH: Mood and affect congruent and appropriate to situation Assessment and Plan: Ms. Rere Hunter is a 53 year old with PMH significant for anxiety, depression, COPD, and tobacco abuse. She initially presented to [facility]. She ruled in for NSTEMI and underwent cardiac catheterization. She was found to have multivessel CAD with critical left main stenosis. She was transferred to for surgical revascularization evaluation. She is now s/p CABG x 4 on 05/06. Postoperative course complicated by ileus s/p exploratory lap, extended left colectomy and end colostomy creation on 05/23 for colonic perforation. This was followed by US guided drain placement by IR on 06/04 for fluid collection in the abdomen (perisplenic). Multivessel CAD (POA) NSTEMI on presentation S/p CABG x 4 on 05/06 - Patient presented to OSH on 05/01/24 with chest pain where tropon levels were 0.05 > 0.23 > 0.16 & LHC reveal mvCAD - Coronary artery bypass grafting x4 with CHOWDARY to LAD as a free graft, reverse saphenous vein graftsequential to ramus intermedius artery then to obtuse marginal artery 1, reverse saphenous vein graft to PDA. Greater saphenous vein vessel harvest of left and right side with endoscopic technique - Continue asa, statin, metoprolol - Routine post cardiac surgery care: Sternal precautions x 6 weeks, PT, bowel regimen to prevent constipation and aggressive pulmonary toilet. Ileus Gastric Perforation VS Colonic Perforation Perisplenic Fluid Collection S/p ex lap with left colon resection with end colostomy creation with blue surgery on 05/23/2024 - 06/01: CT abd per Blue surgery giving increasing WBC - 06/02: CT yd with fluid collection consistent with abscess. Started on zosyn yd evening. IR consulted for fluid drainage. Plan for IR procedure on Tuesday - 06/04: S/p Acordian drain placement with IR this AM. Fluid cx pending. Continue zosyn. Blue surg recs: continue zosyn at least 4 days s/p IR drain placement (through 06/08-completed) or change abx based on culture data. - 06/08: Seen by surgery in evening, both drains remain, monitoring output, strip LENA drain BID - 06/13: Both drains remain, continue to monitor - 06/15: IR placed drain removed yesterday - 06/17: complaints of abdominal pain; KUB demonstrates ileus - 06/18: overnight patient inadvertently pulled LENA drain out Leukocytosis (POA) (resolved) Abdominal Fluid Collection - possible reactive secondary to MS - WBC 12.8, afebrile - continue to monitor - 05/31: WBC 26.51 - 06/01: WBC 33.03. CT abd per blue surgery - 06/02: WBC 33.90. CT yd with fluid collection. Started on zosyn yd evening. IR consulted for fluiddrainage. - 06/03: WBC 20.40. Plan for IR procedure tomorrow - 06/04: WBC 22.10. S/p Drain placement his AM. Fluid cx pending. Continue zosyn. Blue surg recs: continue zosyn at least 4 days s/p IR drain placement or change abx based on culture data. - 06/05: C/O intense ABD pain after eating any food; surgery reassed with recs for no carbonated beverages and encourage mobility, KUB shows gas distribution. WBC count 19.81 - 06/06: Pain continues after eating. WBC 24.98 - 06/07: Channing count in progress. WBC 16.9 - 06/08: WBC 14.57; 06/09 WBC 12.2 - Afebrile, surgery is following - [place] (two black + bridge) MWF by nursing - Gas pain, ostomy functioning appropriately - Follow SGE LENA output (superior drain in fluid cavity near pancreas) - 06/10: WBC 20.16, afebrile - 06/11: Procalcitonin, add diff to CBC, KUB and CXR - 06/13: WBC 14.79, afebrile - 06/14: WBC 21.2, afebrile, Surgery pulled 1 of 2 drains - 06/15: WBC 15.65, afebrile - 06/16: WBC 9.35 - 06/17: WBC 12.53, afebrile - 06/18: WBC 16.58, afebrile - 06/19: WBC 11.65,k afebrile Acute Blood Loss Anemia - Monitor and transfuse for Hgb < 711 - 06/01: H/H 9.7/29.3 - 06/10: H/H 10.2/32 - 06/12: 9.3/29.4 - 06/13: H/H 9.8/30.5 - 2: H/H 10.3/31.8 - 3: H/H 10.2/30.1 - 06/17: H/H 10.4/31.9 - 06/18: H/H 11.0/33.7 - 06/19: H/H 10.733.1 Hypocalcemia (POA) - monitor and replace prn Hypomagnesemia - monitor and replete prn Hyponatremia - fluid restriction Thrombocytosis - platelets 478 - continue to monitor - 06/13: platelets 409 - 5/2: platelets 437 - 5/3: platelets 470 - /4: platelets 514 - 5/5: platelets 565 - /6: platelets 615 Transaminitis - ALT 122, AST 80, alkphos 258, Tbili 0.3 - improved - 06/13: ALT 99, AST 52, alk phos 212, Tbili 0.3 - /2: ALT 59, AST 32, alk phos 181, Tbili 0.3 - 5/3: ALT 55, AST 37, alk phos 170, Tbili 0.3 - 5/4: ALT 87, AST 70, alk phos 172, Tbili 0.3 - 5/5: ALT 72, AST 43, alk phos 164, Tbili 0.3 - /6: ALT 62, AST 37, alk phos 153, Tbili 0.2 Prolonged QT (POA) Sinus tachycardia Incomplete RBBB - continue to monitor rhythm Acute postoperative pain - [facility] and [facility] Total Parenteral Nutrition (TPN) (discontinued) - Started on 05/20 - 05/31: Calorie count completed and demonstrated pt was only meeting 12-13% of calorie requirements. Repeat calorie count in progress, to end today 06/07 - Continue TPN until current bag is empty 06/09, then trial discontinuing it - Start marinol - Promote PO intake 06/15: prealbumin 13.3 (up from 6.5 on 05/09) Anxiety (POA) Depression (POA) - Continue home bupropion and citalopram - Vistaril prn COPD (POA) - Duo nebs prn GERD (POA) - 05/07 extubated, not on home PPI, dc'd - 05/08 pt denies any GERD symptoms - 05/09 + PPI for reflux - 05/10 docusate, metoclopramide, miralax, senna, simethicone, continue NG to low intermitted, CLD for pt comfort, passing gas - 05/11 as above denies reflux today NG clamp trial - 05/14 PPI per blue surgery rec for blood tinged NG output - NG now removed Hyperlipidemia (POA) Hypertriglyceridemia (POA) Hypoalphalipoproteinemia (POA) - 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 Continue metoprolol - continue home primidone Tobacco abuse (POA) - complicates all aspects of care - cessation counseling - NRT prn Overweight (POA) (resolved) Delirium (resolved) Acute hypoxic respiratory failure (resolved) Cardiac Volume Overload (resolved) Hypoglycemia (resolved) Hypokalemia (resolved) Thrombocytopenia (POA) (resolved) Hypernatremia (resolved) Hypermagnesemia (resolved) Hyperphosphatemia (resolved) Hypophosphatemia (resolved) MESHA (resolved) Hyperkalemia (resolved) Pleural effusion (resolved) Low cardiac output syndrome (resolved) Nausea with Vomiting (resolved) Plan: Oxycodone changed to only use with wound vac changes. Contacted surgery: recs to keep wound vac at discharge and follow up in their clinic 06/26 (appointment made and in chart). Cardiothoracic Surgery [phone] * Consults - Gretchen Brothers RD - 06/19/2024 12:39 PM EDT Adult Nutrition Evaluation Note Rere Hunter 53 y.o. female CSN: [id number] Room/Bed 117/117A Nutrition evaluation type: follow-up Reason for evaluation: Hospital course: 53 y.o. female presents for CABG evaluation. OR on 05/06. 05/16: NPO x 5 days d/t ileus. Trial of clamping NGT. SGE is following. Pt has been intermittently confused. 05/18: Patient transferred back to ICU yesterday given worsening abdominal exam, electrolyte abnormalities, and overall care requirements. Having fevers, tachycardia. General surgery and GI acutely involved for worsening bowel exam with CT findings concerning for possible gastric perforation. 05/21: Currently receiving TPN. NGT to suction. 05/29: S/P Exploratory laparotomy, extensive lysis of adhesions, left colectomy(performed by colorectal surgery), end colostomy creation, abdominal washout, application of negative pressure wound VAC therapy to skin and soft tissues on 05/23 d/t colon perforation. Continues on TPN, decreased to half rate. Po diet initiated and advanced on 05/28; calorie count started. 06/07: Pt continues on TPN, with PO diet. New Kcal count in progress. 06/11: Kcal count completed. Off TPN att. 06/14: PO intake continues, Diet now regular: GI Ostomy. Team considering possible TF to start. 06/19: PO diet ongoing, continues with wound vac. Past medical/ surgical history: Medical History[1] Surgical History[2] Social history: Additional comments: Minimal PO intake recently, diet advancing per protocol. 05/11: Pt reports appetite improving, trying to eat. Pt denied n/v/d/c, denied chewing/swallowing difficulty. Pt denied involuntary wt changes. No feeding tube present. 05/31: Nurse providing care at time of visit 06/04: Pt out of room (IR) at time of visit 06/07: Pt reports persistent abd pain with PO intake. AUTOMOTIVE PORTER present encourages pt to move to help relieve gas. Pt denied chewing/swallowing difficulty. UBW ~130# per pt, ~4.6% loss of BW. Pt tries to drink Boost shake, has not had Roque yet. TPN ongoing. Will f/u once kcal count complete. 06/11: Pt reports taste is still diminished att, but appetite is improved, abdominal pain is improved, less gas att. Pt does not like Boost, would like to try magic cup, inquired about other items that she can eat att. 06/14: Pt in bed, just finishing lunch. Pt reports that appetite continues to improve. Some n/v last evening and nausea this morning, improved with zofran per pt. Ostomy output consistent per pt. Pt denied chewing/swallowing difficulty. 06/19: Pt visibly uncomfortable/in pain at time of visit. RN aware and providing care. RD will re-visit as able. Vitals and Basic Assessment: BP: 137/89 Temp: 36.4 ??C (97.6 ??F) Invasive Ventilator Initiated (ETT/Trach Only): Yes Oxygen Therapy: None (Room air) O2 Delivery Method: Nasal cannula with capnography Jaida Coma Scale Score: 15 Shaan Scale Score: 18 Joshua/Cubbin Pressure Risk Score: 45 Most Recent BM Date: 06/19/24 (colostomy) GI Symptoms: Nausea Edema: Generalized Colostomy output: 180 mL Wound vac in place Allergies: NKFA Medications: acetaminophen, 1,000 mg, Oral, q6h LINDA aspirin, 81 mg, Oral, Daily buPROPion, 150 mg, Oral, BID FOLLOWED BY buPROPion XL, 300 mg, Oral, Daily citalopram, 40 mg, Oral, Daily dronabinol, 2.5 mg, Oral, BID AC enoxaparin, 40 mg, Subcutaneous, Daily lactulose, 20 g, Oral, BID lidocaine, 2 patch, Apply externally, q24h melatonin, 6 mg, Oral, Nightly methocarbamol, 1,000 mg, Oral, 4x daily metoprolol tartrate, 25 mg, Oral, BID pantoprazole, 40 mg, Oral, Daily polyethylene glycol, 17 g, Oral, Daily primidone, 50 mg, Oral, BID rosuvastatin, 40 mg, Oral, Nightly sodium chloride, 10 mL, Intravenous, q12h PRN medications: benzocaine-menthol, bisacodyl, calcium carbonate, hydrOXYzine pamoate, ipratropium-albuterol, moisturizing mouth, [DISCONTINUED] ondansetron ODT OR ondansetron OR [DISCONTINUED] ondansetron, oxyCODONE, promethazine OR promethazine OR promethazine, simethicone, sodium chloride, traZODone Meds were reviewed: Yes Labs: Lab Results Component Value Date GLUCOSE 90 06/19/2024 CALCIUM 8.1 (L) 06/19/2024 NA 130 (L) 06/19/2024 K 3.5 (L) 06/19/2024 CO2 24 06/19/2024 CL 97 06/19/2024 BUN 5 (L) 06/19/2024 CREATININE 0.69 06/19/2024 PHOS 5.8 (H) 06/02/2024 MG 1.8 (L) 06/19/2024 HGBA1C 5.3 05/01/2024 Anthropometrics: Height: 154.9 cm (5' 0.98 ) Weight: 53 kg (116 lb 13.5 oz) BMI (Calculated): 22.09 Weight Evaluation: Overweight (BMI 25-29.9) [place] Body Weight (kg): 47.7 Percent [place] Body Weight: 111 Adjusted Body Weight (kg): 50.9 Wt Readings from Last 10 Encounters: 06/19/24 53 kg (116 lb 13.5 oz) 06/28/23 59 kg (130 lb) 04/26/23 62.6 kg (138 lb) 01/18/23 61.7 kg (136 lb) Estimated Needs: Kcal/ K-35 Kcal Provided: 8301-1067 Kcal Needs Based On: Current weight Gm Protein/ Kg : 1.5-2 Protein Provided: 81-109 Protein Needs Based On: Current weight Metabolic Cart Study Results: Current Nutrition Intake: Diet Supplements: Boost Very High Calorie Diet Order: Adult Diet Diet Texture: Regular Adult Carbohydrate Restriction: Consistent CHO 2 (1668-9283 Channing, 80 g/meal) Fat Restriction: Cardiac Other Restrictions: Other (Comment) (GI Ostomy) Percent Meals Eaten (%): avg 55% x 5 meals (06/14-06/15) Diet Experience and Nutrition History: Diet Education Provided: Will monitor Pertinent home medications: reviewed Gnosticist needs: Nutrition Focused Physical Exam: Physical exam performed on (date): 06/14/24 Temples (muscles): None Clavicle (muscle): None Shoulder (muscle): None Interosseous (muscle): None Orbital (fat): None Triceps (fat): None Assessment of Malnutrition: Malnutrition Identified: No Nutrition Problem: Increased nutrient needs protein, calories related to s/p CABG/exp lap as evidenced by increased metabolic demands of surgical wound healing. Status of Nutrition Diagnosis: Ongoing Inadequate energy intake related to ileus/possible gastric perforation -> colonic perforation asevidenced by NPO x 7 days -> TPN initiated -> TPN + po diet Status of Nutrition Diagnosis: Improved- now off TPN, PO diet ongoing. Nutrition Interventions and Recommendations: - Continue PO diet as tolerated. - Continue magic cup once daily + Roque BID (located in clean utility). -Document PO intake in flowsheet -Monitor elytes closely, replace PRN Nutrition Monitoring and Goals: - Will monitor PO intake, weight, skin, labs, nutrition status, GI fxn - Improved PO intake, goal >/= 50% of most meals (progressing) - Pt will maintain body weight throughout hospital admission (ongoing) - ostomy diet education prior to d/c- completed -f/u NFPE as able- completed, repeat as appropriate Acuity Level: [address], LD [1] Past Medical History: Diagnosis Date Anxiety COPD (chronic obstructive pulmonary disease) ([facility] [place]) 05/01/2024 Continue Duo nebs q6 SPO2 goal >88% Depression GERD (gastroesophageal reflux disease) 05/01/2024 Continue Protonix 40 mg daily Hyperkalemia 05/06/2024 Now resolved, pt with hypokalemia requiring replacement On mechanically assisted ventilation (CMS/HCC) 05/06/2024 Arrived to ICU intubated 05/07 extubated to 4LNC 05/08 resolved Tobacco use 05/01/2024 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 Complicates all aspects of care and recovery Tremor 05/01/2024 Continue home primidone 50 mg BID [2] Past Surgical History: Procedure Laterality Date ABDOMINAL ADHESION SURGERY SECTION, CLASSIC CHOLECYSTECTOMY CORONARY ARTERY BYPASS GRAFT 05/06/2024 Coronary artery bypass grafting x4 with CHOWDARY to LAD as a free graft, reverse saphenous vein graft sequential to ramus intermedius artery then to obtuse marginal artery 1, reverse saphenous vein graftto PDA.(Reda) HAND SURGERY Right Tendon repair SHOULDER SURGERY * Clinician Note - Betty Casas - 06/19/2024 9:32 AM EDT Occupational Therapy Attempt Patient Name: Rere Hunter Today's Date: 06/19/2024 Patient was attempted to be seen by occupational therapy 06/19/2024 for OT Treatment however patient politely declined (Requesting therapy return after lunch due to needing sleep). Second attempt at 1:35pm and patient reporting significant abdominal pain and deferring getting out of bed at this time. Occupational therapy team will follow-up as schedule permits. Written by Betty Casas on 06/19/24 at 11:12 AM. * Progress Notes - Lester Lazo RN - 06/18/2024 2:56 PM EDT Images from the original note were not included. Wound Care Consult Visit Date: 06/18/2024 Patient Name: Rere Hunter Date of : 1970 Admit Date: 05/01/2024 Reason for Consult: wound vac to [employer] Wound History: PMHx of CAD, HTN, COPD, GERD, tremor, anxiety, depression, and tobacco use, who is currently hospitalized under the care of the CVT surgery team after having a CABG on 05/06/24. Since surgery she has developed nausea, vomiting, and abdominal pain with imaging findings consistent with ileus. We were consulted for evaluation and assistance in management of her ileus. Wound Assessment: Wound 05/23/24 Surgical Abdomen Upper (Active) Date First Assessed/Time First Assessed: 05/23/24 1419 Hand Hygiene Completed: Yes Primary Wound Type: Surgical Location: Abdomen Wound Location Orientation: Upper Assessments 06/18/2024 11:45 AM Wound Image Wound Assessment Red;Granulation Margins Well-defined edges Jacey-Wound Assessment Intact Wound Length (cm) 3 cm Wound Width (cm) 1.5 cm Wound Surface Area (cm^2) 3.53 cm^2 Wound Depth (cm) 0.5 cm Wound Volume (cm^3) 1.178 cm^3 Drainage Description Serosanguineous Drainage Amount Scant Treatments Cleansed;Saline Dressing Vacuum dressing (aquacel AG over top portion with allevyn) Number of Packing Pieces Used 1 Dressing Changed Changed Dressing Status Intact Active Orders Date Order Priority Status Authorizing Provider 06/13/24 1251 Wound VAC Dressing Changes (Non-Instillation) Upper Abdomen Surgical Routine Active Maite Austin MD - Who is to perform dressing change:: Nursing Staff - Pressure Settings:: Continuous - mmHg:: 125 mmHg 05/31/24 1255 Wound VAC Dressing Changes (Non-Instillation) Upper Abdomen Surgical Routine Active Maite Austin MD - Who is to perform dressing change:: Nursing Staff - Pressure Settings:: Continuous - mmHg:: 125 mmHg Wound Team Summary Assessment: pt seen for wound vac dressing change, 1 black foam removed from distal portion and aquacel AG and allevyn removed from proximal portion with stapled in between. Both areas with red moist granulation, do not believe pt will need wound vac at home should be able to d/cthis week and switch to aquacel AG as well. Both wounds cleansed with NS> Jacey wound prepped with cavalon and draped and 1 black foam applied with good seal @ 125. Aquacel AG and allevyn applied to proximal wound. Wound Team Plan: Wound care will follow up at regular intervals while inpatient; bedside nursing tofollow wound care recommendations as ordered and please re- consult sooner for new changes or concerns prior to follow up. KRISTINA ValdesOCN 06/18/2024 2:56 PM * Progress Notes - Lester Lazo RN - 06/18/2024 2:49 PM EDT Images from the original note were not included. Ostomy Progress Note Visit Date: 06/18/2024 Patient Name: Rere Hunter Date of : 1970 Education other education. Pt has not changed again since last Tue however was independent with emptying, pt noticed pills in her bag but forgot to tell her MD however mentioned to WOCN today, pt re-educatedon importance of informing MD whenever she may notice this occurring, (pt's nurse notifying MD per chat) Wound Ostomy Assessment: Colostomy Transverse RUQ (Active) 05/23/24 RUQ Present on Admission: Earliest Known Present: Placed by External Staff?: Inserted by: Bartolome Hand Hygiene Completed: Yes Colostomy Type: Transverse Stoma Size (cm): Earliest Known Removed: Removal Reason : Wound Image 06/18/241144 Stomal Appliance 2 piece;Flat Barrier/Pouch;Flat Ring;Barrier Clinchco/Wipe 06/18/24 114 Site Assessment Moist;Niota;Raised 06/18/24 114 Peristomal Assessment Clean;Intact 06/18/24 1145 Treatment Bag change;Site care 06/18/24 1145 Output (mL) 200 mL 06/18/24 0800 Gastric Output Appearance Watery 06/18/24 1145 Gastric Output Color Yellow;Brown 06/18/24 1145 Refeeding Mucous Fistula (mL) 250 mL 06/18/24 1148 Recs in Lester Lazo RN CWOCN 06/18/2024 2:49 PM * Progress Notes - Trinity Yousif APRN - 06/18/2024 11:24 AM EDT CVT Progress Note 24 Hour Events/HPI: Resting quietly in bed. No complaints during morning rounds. Denies CP and SOA.No acute events overnight. Afebrile and hemodynamically stable. Tolerating po diet (still needs encouragement to eat). Review of Systems: A complete ROS was obtained. All were negative except as noted in HPI. Objective: All laboratory data, images, tracings, and vital sign data for past 24 hours are personally reviewed unless otherwise noted. All images personally reviewed and I agree with the radiology interpretation @PATIENTWT@ , Weight: 61.1 kg (134 lb 12.8 oz) , Ht Readings from Last 1 Encounters: 06/14/24 1.549 m (5' 0.98 ) , Body mass index is 22.13 kg/m??. VITALS (last 24h) Temp: [36.7 ??C (98 ??F)-37.2 ??C (98.9 ??F)] 37 ??C (98.6 ??F) Heart Rate: [86-102] 86 Resp: [16-19] 18 BP: (96-113)/(63-77) 111/75 Visit Vitals BP 111/75 (BP Location: Right arm, Patient Position: Lying) Pulse 86 Temp 37 ??C (98.6 ??F) (Oral) Resp 18 Ht 1.549 m (5' 0.98 ) Wt 53.1 kg (117 lb 1 oz) SpO2 95% BMI 22.13 kg/m?? Smoking Status Every Day BSA 1.51 m?? I & O Summary Intake/Output Summary (Last 24 hours) at 06/18/2024 1124 Last data filed at 06/18/2024 0800 Gross per 24 hour Intake 50 ml Output 1610 ml Net -1560 ml LABS CBC WBC 16.58 (H) Hb 11.0 (L) Plt 565 (H) Hct 33.7 (L) ANC ?? INR ??, PTT ??, Anti-Xa ?? BMP Na 132 (L) Cl 96 (L) BUN 4 (L) Glu 94 K 4.1 Co2 25 Cr 0.59 (L) Ca 8.3 (L) iCa ?? Mg 1.7 (L), Phos ?? Lactate ?? LFT AST 43 (H) AlkPhos 164 (H) T Prot 6.6 ALK 72 (H) Bili 0.3 Alb ?? D.Bili ?? HOURS) MEDICATIONS acetaminophen, 1,000 mg, Oral, q6h LINDA aspirin, 81 mg, Oral, Daily buPROPion XL, 300 mg, Oral, Daily citalopram, 40 mg, Oral, Daily dronabinol, 2.5 mg, Oral, BID AC enoxaparin, 40 mg, Subcutaneous, Daily lactulose, 20 g, Oral, BID lidocaine, 2 patch, Apply externally, q24h melatonin, 6 mg, Oral, Nightly methocarbamol, 1,000 mg, Oral, 4x daily metoprolol tartrate, 25 mg, Oral, BID pantoprazole, 40 mg, Oral, Daily polyethylene glycol, 17 g, Oral, Daily primidone, 50 mg, Oral, BID rosuvastatin, 40 mg, Oral, Nightly sodium chloride, 10 mL, Intravenous, q12h PRN medications: benzocaine-menthol, bisacodyl, calcium carbonate, hydrOXYzine pamoate, ipratropium-albuterol, moisturizing mouth, [DISCONTINUED] ondansetron ODT OR ondansetron OR [DISCONTINUED] ondansetron, oxyCODONE OR [DISCONTINUED] oxyCODONE, simethicone, sodium chloride, traZODone Physical Exam: GENERAL: Well developed, well nourished. No acute distress. RESP/CHEST: Clear to auscultation bilaterally with symmetric expansion; non labored. Sternum stable, sternotomy as noted below. CARD: RRR. S1S2. No murmur, rub, or gallop. No JVD. No lower extremity edema. Pedal pulses palpable+2. Extremities: No cyanosis or clubbing. GI: Soft, nontender, nondistended. SKIN: No rash, sores, lesions or subcutaneous nodules. Midsternal incision healing well, edges wellapproximated. EVH site CDI. Wound vac to midline abdominal incision. Colostomy with ostomy bag in place. NEURO: AAOx4. Motor intact and no focal deficits PSYCH: Mood and affect congruent and appropriate to situation. Assessment and Plan: Ms. Rere Hunter is a 53 year old with PMH significant for anxiety, depression, COPD, and tobacco abuse. She initially presented to [facility]. She ruled in for NSTEMI and underwent cardiac catheterization. She was found to have multivessel CAD with critical left main stenosis. She was transferred to for surgical revascularization evaluation. She is now s/p CABG x 4 on 05/06. Postoperative course complicated by ileus s/p exploratory lap, extended left colectomy and end colostomy creation on 05/23 for colonic perforation. This was followed by US guided drain placement by IR on 06/04 for fluid collection in the abdomen (perisplenic). Multivessel CAD (POA) NSTEMI on presentation S/p CABG x 4 on 05/06 - Patient presented to OSH on 05/01/24 with chest pain where tropon levels were 0.05 > 0.23 > 0.16 & LHC reveal mvCAD - Coronary artery bypass grafting x4 with CHOWDARY to LAD as a free graft, reverse saphenous vein graftsequential to ramus intermedius artery then to obtuse marginal artery 1, reverse saphenous vein graft to PDA. Greater saphenous vein vessel harvest of left and right side with endoscopic technique - Continue asa, statin, metoprolol - Routine post cardiac surgery care: Sternal precautions x 6 weeks, PT, bowel regimen to prevent constipation and aggressive pulmonary toilet. Ileus Gastric Perforation VS Colonic Perforation Perisplenic Fluid Collection S/p ex lap with left colon resection with end colostomy creation with blue surgery on 05/23/2024 - 06/01: CT abd per Blue surgery giving increasing WBC - 06/02: CT yd with fluid collection consistent with abscess. Started on zosyn yd evening. IR consulted for fluid drainage. Plan for IR procedure on Tuesday - 06/04: S/p Acordian drain placement with IR this AM. Fluid cx pending. Continue zosyn. Blue surg recs: continue zosyn at least 4 days s/p IR drain placement (through 06/08-completed) or change abx based on culture data. - 06/08: Seen by surgery in evening, both drains remain, monitoring output, strip LENA drain BID - 06/13: Both drains remain, continue to monitor - 06/15: IR placed drain removed yesterday - 06/17: complaints of abdominal pain; KUB demonstrates ileus - 06/18: overnight patient inadvertently pulled LENA drain out Leukocytosis (POA) (resolved) Abdominal Fluid Collection - possible reactive secondary to MS - WBC 12.8, afebrile - continue to monitor - 05/31: WBC 26.51 - 06/01: WBC 33.03. CT abd per blue surgery - 06/02: WBC 33.90. CT yd with fluid collection. Started on zosyn yd evening. IR consulted for fluiddrainage. - 06/03: WBC 20.40. Plan for IR procedure tomorrow - 06/04: WBC 22.10. S/p Drain placement his AM. Fluid cx pending. Continue zosyn. Blue surg recs: continue zosyn at least 4 days s/p IR drain placement or change abx based on culture data. - 06/05: C/O intense ABD pain after eating any food; surgery reassed with recs for no carbonated beverages and encourage mobility, KUB shows gas distribution. WBC count 19.81 - 06/06: Pain continues after eating. WBC 24.98 - 06/07: Channing count in progress. WBC 16.9 - 06/08: WBC 14.57; 06/09 WBC 12.2 - Afebrile, surgery is following - [place] (two black + bridge) MWF by nursing - Gas pain, ostomy functioning appropriately - Follow SGE LENA output (superior drain in fluid cavity near pancreas) - 06/10: WBC 20.16, afebrile - 06/11: Procalcitonin, add diff to CBC, KUB and CXR - 06/13: WBC 14.79, afebrile - 06/14: WBC 21.2, afebrile, Surgery pulled 1 of 2 drains - 06/15: WBC 15.65, afebrile - 06/16: WBC 9.35 - 06/17: WBC 12.53, afebrile - 06/18: WBC 16.58, afebrile Acute Blood Loss Anemia - Monitor and transfuse for Hgb < 7 - 06/01: H/H 9.7/29.3 - 06/10: H/H 10.2/32 - 06/12: 9.3/29.4 - 06/13: H/H 9.8/30.5 - 06/15: H/H 10.3/31.8 - 06/16: H/H 10.2/30.1 - 06/17: H/H 10.4/31.9 - 06/18: H/H 11.0/33.7 Hypocalcemia (POA) - monitor and replace prn Hypomagnesemia - monitor and replete prn Hyponatremia - fluid restriction Thrombocytosis - platelets 478 - continue to monitor - 06/13: platelets 409 - 06/15: platelets 437 - 06/16: platelets 470 - 06/17: platelets 514 - 06/18: platelets 565 Transaminitis - ALT 122, AST 80, alkphos 258, Tbili 0.3 - improved - 06/13: ALT 99, AST 52, alk phos 212, Tbili 0.3 - 06/15: ALT 59, AST 32, alk phos 181, Tbili 0.3 - 06/16: ALT 55, AST 37, alk phos 170, Tbili 0.3 - 06/17: ALT 87, AST 70, alk phos 172, Tbili 0.3 - 06/18: ALT 72, AST 43, alk phos 164, Tbili 0.3 Prolonged QT (POA) Sinus tachycardia Incomplete RBBB - continue to monitor rhythm Acute postoperative pain - Abdominal tenderness and pain - MMPC Total Parenteral Nutrition (TPN) (discontinued) - Started on 05/20 - 05/31: Calorie count completed and demonstrated pt was only meeting 12-13% of calorie requirements. Repeat calorie count in progress, to end today 06/07 - Continue TPN until current bag is empty 06/09, then trial discontinuing it - Start marinol - Promote PO intake 06/15: prealbumin 13.3 (up from 6.5 on 05/09) Anxiety (POA) Depression (POA) - Continue home bupropion and citalopram - Vistaril prn COPD (POA) - Duo nebs prn GERD (POA) - 05/07 extubated, not on home PPI, dc'd - 05/08 pt denies any GERD symptoms - 05/09 + PPI for reflux - 05/10 docusate, metoclopramide, miralax, senna, simethicone, continue NG to low intermitted, CLD for pt comfort, passing gas - 05/11 as above denies reflux today NG clamp trial - 05/14 PPI per blue surgery rec for blood tinged NG output - NG now removed Hyperlipidemia (POA) Hypertriglyceridemia (POA) Hypoalphalipoproteinemia (POA) - 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 Continue metoprolol - continue home primidone Tobacco abuse (POA) - complicates all aspects of care - cessation counseling - NRT prn Overweight (POA) (resolved) Delirium (resolved) Acute hypoxic respiratory failure (resolved) Cardiac Volume Overload (resolved) Hypoglycemia (resolved) Hypokalemia (resolved) Thrombocytopenia (POA) (resolved) Hypernatremia (resolved) Hypermagnesemia (resolved) Hyperphosphatemia (resolved) Hypophosphatemia (resolved) MESHA (resolved) Hyperkalemia (resolved) Pleural effusion (resolved) Low cardiac output syndrome (resolved) Nausea with Vomiting (resolved) Plan: Oxycodone changed to every 8 hours prn with plans to change to only use with wound vac changes tomorrow. Contacted surgery: recs to keep wound vac at discharge and follow up in their clinic 06/26 (appointment made and in chart). Cardiothoracic Surgery [phone] * Progress Notes - Annika Perez RN - 06/18/2024 9:11 AM EDT Case Management Adult Progress Note Rere Hunter 53 y.o. female CSN: [id number] Admission: 05/01/2024 11:01 PM Primary Problem: CAD, multiple vessel Anticipated Discharge Date: 06/21/2024 Additional Comments: KRISTINA PATEL reviewed chart and met with primary team to discuss plan of care. Patient is not medically ready for discharge at this time, continue to monitor ileus. Edward sent Fax to [facility] for ostomy supplies, will continue to follow. Update: EDWARD contacted [facility] for follow up [place] dressing changes. CM to set up care through the infusion center until getting established on a F schedule with the outpatient wound clinic. Annika Perez RN * Progress Notes - Lester Lazo RN - 06/18/2024 8:27 AM EDT Ostomy Progress Note Visit Date: 06/18/2024 Patient Name: Rere Hunter Date of : 1970 Wound Ostomy Assessment: Colostomy Transverse RUQ (Active) 05/23/24 RUQ Present on Admission: Earliest Known Present: Placed by External Staff?: Inserted by: Bartolome Hand Hygiene Completed: Yes Colostomy Type: Transverse Stoma Size (cm): Earliest Known Removed: Removal Reason : Stomal Appliance 2 piece;Clean;Dry;Intact 06/17/241999 Site Assessment Clean;Intact 06/18/24 0400 Peristomal Assessment Clean;Intact 06/18/24 0400 Output (mL) 10 mL 06/18/24 0215 Gastric Output Appearance Loose 06/16/241999 Gastric Output Color Brown 06/16/241999 RECs FOR HOME: 2 04/17 Wafer: #[id number] 2 04/17 bag: #[id number] 2 inch ring: #[id number] Stoma powder: # [id number] Skin protective wipes: #7917 Odor eliminator and lubricant: #[id number] Lester Lazo RN CWOCN 06/18/2024 8:27 AM * Care Plan - Luca Urbano RN - 06/18/2024 7:30 AM EDT Problem: Adult Inpatient Plan of Care Goal: Plan of Care Review Outcome: Ongoing, Progressing Flowsheets Taken 06/17/2024 4699 by Brooklyn Miller RN Progress: no change Taken 06/15/2024 0155 by Roades, [place], RN Plan of Care Reviewed With: patient Goal: Patient-Specific Goal (Individualized) Outcome: Ongoing, Progressing Goal: Absence of Hospital-Acquired Illness or Injury Outcome: Ongoing, Progressing Goal: Optimal Comfort and Wellbeing Outcome: Ongoing, Progressing Goal: Readiness for Transition of Care Outcome: Ongoing, Progressing Problem: Infection Goal: Absence of Infection Signs and Symptoms Outcome: Ongoing, Progressing Problem: Self-Care Deficit Goal: Improved Ability to Complete Activities of Daily Living Outcome: Ongoing, Progressing Problem: Oral Intake Inadequate Goal: Improved Oral Intake Outcome: Ongoing, Progressing * Progress Notes - Trinity Yousif, [employer] - 06/17/2024 10:08 AM EDT CVT Progress Note 24 Hour Events/HPI: Resting quietly in bed. Still complaining of low back pain, encouraged to be upout of bed in chair and walking. Denies CP and SOA. No acute events overnight. Afebrile and hemodynamically stable. Tolerating po diet and having bowel movements. Review of Systems: A complete ROS was obtained. All were negative except as noted in HPI. Objective: All laboratory data, images, tracings, and vital sign data for past 24 hours are personally reviewed unless otherwise noted. All images personally reviewed and I agree with the radiology interpretation @PATIENTWT@ , Weight: 61.1 kg (134 lb 12.8 oz) , Ht Readings from Last 1 Encounters: 06/14/24 1.549 m (5' 0.98 ) , Body mass index is 22.55 kg/m??. VITALS (last 24h) Temp: [36.4 ??C (97.6 ??F)-37.2 ??C (99 ??F)] 36.9 ??C (98.4 ??F) Heart Rate: [87-96] 88 Resp: [16-19] 18 BP: (96-113)/(60-83) 111/68 Visit Vitals BP 111/68 (BP Location: Right arm, Patient Position: Lying) Pulse 88 Temp 36.9 ??C (98.4 ??F) (Oral) Resp 18 Ht 1.549 m (5' 0.98 ) Wt 54.1 kg (119 lb 4.3 oz) SpO2 95% BMI 22.55 kg/m?? Smoking Status Every Day BSA 1.53 m?? I & O Summary Intake/Output Summary (Last 24 hours) at 06/17/2024 1009 Last data filed at 06/17/2024 0400 Gross per 24 hour Intake -- Output 1702 ml Net -1702 ml LABS CBC WBC 12.53 (H) Hb 10.4 (L) Plt 514 (H) Hct 31.9 (L) ANC ?? INR ??, PTT ??, Anti-Xa ?? BMP Na 130 (L) Cl 95 (L) BUN 4 (L) Glu 104 (H) K 4.2 Co2 25 Cr 0.61 Ca 8.3 (L) iCa ?? Mg 1.8 (L), Phos ?? Lactate ?? LFT AST 70 (H) AlkPhos 172 (H) T Prot 6.9 ALK 87 (H) Bili 0.3 Alb ?? D.Bili ?? HOURS) MEDICATIONS acetaminophen, 1,000 mg, Oral, q6h LINDA aspirin, 81 mg, Oral, Daily buPROPion XL, 300 mg, Oral, Daily citalopram, 40 mg, Oral, Daily dronabinol, 2.5 mg, Oral, BID AC enoxaparin, 40 mg, Subcutaneous, Daily lactulose, 20 g, Oral, BID lidocaine, 2 patch, Apply externally, q24h melatonin, 6 mg, Oral, Nightly methocarbamol, 1,000 mg, Oral, 4x daily metoprolol tartrate, 25 mg, Oral, BID pantoprazole, 40 mg, Oral, Daily polyethylene glycol, 17 g, Oral, Daily primidone, 50 mg, Oral, BID rosuvastatin, 40 mg, Oral, Nightly sodium chloride, 10 mL, Intravenous, q12h PRN medications: benzocaine-menthol, bisacodyl, calcium carbonate, hydrOXYzine pamoate, ipratropium-albuterol, moisturizing mouth, [DISCONTINUED] ondansetron ODT OR ondansetron OR [DISCONTINUED] ondansetron, oxyCODONE OR oxyCODONE, simethicone, sodium chloride Physical Exam: GENERAL: Well developed, well nourished. No acute distress. RESP/CHEST: Clear to auscultation bilaterally with symmetric expansion; non labored. Sternum stable, sternotomy as noted below. CARD: RRR. S1S2. No murmur, rub, or gallop. No JVD. No lower extremity edema. Pedal pulses palpable+2. Extremities: No cyanosis or clubbing. GI: Soft, nontender, nondistended. SKIN: No rash, sores, lesions or subcutaneous nodules. Midsternal incision healing well, edges wellapproximated. EVH site CDI. Wound vac to midline abdominal incision. LENA to left abdomen. Colostomy with ostomy bag in place. NEURO: AAOx4. Motor intact and no focal deficits PSYCH: Mood and affect congruent and appropriate to situation. Assessment and Plan: Ms. Rere Hunter is a 53 year old with PMH significant for anxiety, depression, COPD, and tobacco abuse. She initially presented to [facility]. She ruled in for NSTEMI and underwent cardiac catheterization. She was found to have multivessel CAD with critical left main stenosis. She was transferred to for surgical revascularization evaluation. She is now s/p CABG x 4 on 05/06. Postoperative course complicated by ileus s/p exploratory lap, extended left colectomy and end colostomy creation on 05/23 for colonic perforation. This was followed by US guided drain placement by IR on 06/04 for fluid collection in the abdomen (perisplenic). Multivessel CAD (POA) NSTEMI on presentation S/p CABG x 4 on 05/06 - Patient presented to OSH on 05/01/24 with chest pain where tropon levels were 0.05 > 0.23 > 0.16 & LHC reveal mvCAD - Coronary artery bypass grafting x4 with CHOWDARY to LAD as a free graft, reverse saphenous vein graftsequential to ramus intermedius artery then to obtuse marginal artery 1, reverse saphenous vein graft to PDA. Greater saphenous vein vessel harvest of left and right side with endoscopic technique - Continue asa, statin, metoprolol - Routine post cardiac surgery care: Sternal precautions x 6 weeks, PT, bowel regimen to prevent constipation and aggressive pulmonary toilet. Ileus (resolved) Gastric Perforation VS Colonic Perforation Perisplenic Fluid Collection S/p ex lap with left colon resection with end colostomy creation with blue surgery on 05/23/2024 - 06/01: CT abd per Blue surgery giving increasing WBC - 06/02: CT yd with fluid collection consistent with abscess. Started on zosyn yd evening. IR consulted for fluid drainage. Plan for IR procedure on Tuesday - 06/04: S/p Acordian drain placement with IR this AM. Fluid cx pending. Continue zosyn. Blue surg recs: continue zosyn at least 4 days s/p IR drain placement (through 06/08-completed) or change abx based on culture data. - 06/08: Seen by surgery in evening, both drains remain, monitoring output, strip LENA drain BID - 06/13: Both drains remain, continue to monitor - 06/15: IR placed drain removed yesterday Leukocytosis (POA) (resolved) Abdominal Fluid Collection - possible reactive secondary to MS - WBC 12.8, afebrile - continue to monitor - 05/31: WBC 26.51 - 06/01: WBC 33.03. CT abd per blue surgery - 06/02: WBC 33.90. CT yd with fluid collection. Started on zosyn yd evening. IR consulted for fluiddrainage. - 06/03: WBC 20.40. Plan for IR procedure tomorrow - 06/04: WBC 22.10. S/p Drain placement his AM. Fluid cx pending. Continue zosyn. Blue surg recs: continue zosyn at least 4 days s/p IR drain placement or change abx based on culture data. - 06/05: C/O intense ABD pain after eating any food; surgery reassed with recs for no carbonated beverages and encourage mobility, KUB shows gas distribution. WBC count 19.81 - 06/06: Pain continues after eating. WBC 24.98 - 06/07: Channing count in progress. WBC 16.9 - 06/08: WBC 14.57; 06/09 WBC 12.2 - Afebrile, surgery is following - [place] (two black + bridge) MWF by nursing - Gas pain, ostomy functioning appropriately - Follow SGE LENA output (superior drain in fluid cavity near pancreas) - 06/10: WBC 20.16, afebrile - 06/11: Procalcitonin, add diff to CBC, KUB and CXR - 06/13: WBC 14.79, afebrile - 06/14: WBC 21.2, afebrile, Surgery pulled 1 of 2 drains - 06/15: WBC 15.65, afebrile - 06/16: WBC 9.35 - 06/17: WBC 12.53, afebrile Acute Blood Loss Anemia - Monitor and transfuse for Hgb < 7 - 06/01: H/H 9.7/29.3 - 06/10: H/H 10.2/32 - 06/12: 9.3/29.4 - 06/13: H/H 9.8/30.5 - 06/15: H/H 10.3/31.8 - 06/16: H/H 10.2/30.1 - 06/17: H/H 10./.9 Hypocalcemia (POA) - monitor and replace prn Hypomagnesemia - monitor and replete prn Hyponatremia - fluid restriction Thrombocytosis - platelets 478 - continue to monitor - 06/13: platelets 409 - 06/15: platelets 437 - 06/16: platelets 470 - 06/17: platelets 514 Transaminitis - ALT 122, AST 80, alkphos 258, Tbili 0.3 - improved - 06/13: ALT 99, AST 52, alk phos 212, Tbili 0.3 - 06/15: ALT 59, AST 32, alk phos 181, Tbili 0.3 - 06/16: ALT 55, AST 37, alk phos 170, Tbili 0.3 - 06/17: ALT 87, AST 70, alk phos 172, Tbili 0.3 Prolonged QT (POA) Sinus tachycardia Incomplete RBBB - continue to monitor rhythm Acute postoperative pain - Abdominal tenderness and pain - [facility] Total Parenteral Nutrition (TPN) (discontinued) - Started on 05/20 - 05/31: Calorie count completed and demonstrated pt was only meeting 12-13% of calorie requirements. Repeat calorie count in progress, to end today 06/07 - Continue TPN until current bag is empty 06/09, then trial discontinuing it - Start marinol - Promote PO intake 06/15: prealbumin 13.3 (up from 6.5 on 05/09) Anxiety (POA) Depression (POA) - Continue home bupropion and citalopram - Vistaril prn COPD (POA) - Duo nebs prn GERD (POA) - 05/07 extubated, not on home PPI, dc'd - 05/08 pt denies any GERD symptoms - 05/09 + PPI for reflux - 05/10 docusate, metoclopramide, miralax, senna, simethicone, continue NG to low intermitted, CLD for pt comfort, passing gas - 05/11 as above denies reflux today NG clamp trial - 05/14 PPI per blue surgery rec for blood tinged NG output - NG now removed Hyperlipidemia (POA) Hypertriglyceridemia (POA) Hypoalphalipoproteinemia (POA) - 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 Continue metoprolol - continue home primidone Tobacco abuse (POA) - complicates all aspects of care - cessation counseling - NRT prn Overweight (POA) (resolved) Delirium (resolved) Acute hypoxic respiratory failure (resolved) Cardiac Volume Overload (resolved) Hypoglycemia (resolved) Hypokalemia (resolved) Thrombocytopenia (POA) (resolved) Hypernatremia (resolved) Hypermagnesemia (resolved) Hyperphosphatemia (resolved) Hypophosphatemia (resolved) MESHA (resolved) Hyperkalemia (resolved) Pleural effusion (resolved) Low cardiac output syndrome (resolved) Nausea with Vomiting Plan: Continue current plan of care. Mobilize, patient encouraged to walk 3 times daily and sit up in chair for all meals. Cardiothoracic Surgery [phone] * Progress Notes - Trinity Yousif APRN - 06/16/2024 9:00 AM EDT CVT Progress Note 24 Hour Events/HPI: Resting quietly in bed, complains of low back pain that she states is new, she has some chronic back pain but thinks this is new. Denies CP and SOA. States she is no longer sore from fall. Afebrile and hemodynamically stable. Tolerating po diet and having bowel movements. Review of Systems: A complete ROS was obtained. All were negative except as noted in HPI. Objective: All laboratory data, images, tracings, and vital sign data for past 24 hours are personally reviewed unless otherwise noted. All images personally reviewed and I agree with the radiology interpretation @PATIENTWT@ , Weight: 61.1 kg (134 lb 12.8 oz) , Ht Readings from Last 1 Encounters: 06/14/24 1.549 m (5' 0.98 ) , Body mass index is 22.55 kg/m??. VITALS (last 24h) Temp: [36.8 ??C (98.3 ??F)-37.1 ??C (98.7 ??F)] 36.9 ??C (98.4 ??F) Heart Rate: [88-101] 92 Resp: [16-22] 16 BP: (93-108)/(65-83) 95/65 Visit Vitals BP 95/65 (BP Location: Right arm, Patient Position: Lying) Pulse 92 Temp 36.9 ??C (98.4 ??F) (Oral) Resp 16 Ht 1.549 m (5' 0.98 ) Wt 54.1 kg (119 lb 4.3 oz) SpO2 96% BMI 22.55 kg/m?? Smoking Status Every Day BSA 1.53 m?? I & O Summary Intake/Output Summary (Last 24 hours) at 06/16/2024 0901 Last data filed at 06/16/2024 0400 Gross per 24 hour Intake 772.73 ml Output 800 ml Net -27.27 ml LABS CBC WBC 9.35 Hb 10.2 (L) Plt 470 (H) Hct 30.1 (L) ANC ?? INR ??, PTT ??, Anti-Xa ?? BMP Na 134 (L) Cl 98 BUN 7 Glu 93 K 3.6 Co2 26 Cr 0.57 (L) Ca 7.9 (L) iCa ?? Mg 2.0, Phos ?? Lactate ?? LFT AST 37 (H) AlkPhos 170 (H) T Prot 6.6 ALK 55 (H) Bili 0.3 Alb ?? D.Bili ?? HOURS) MEDICATIONS aspirin, 81 mg, Oral, Daily buPROPion XL, 300 mg, Oral, Daily citalopram, 40 mg, Oral, Daily dronabinol, 2.5 mg, Oral, BID AC enoxaparin, 40 mg, Subcutaneous, Daily lactulose, 20 g, Oral, BID lidocaine, 2 patch, Apply externally, q24h melatonin, 6 mg, Oral, Nightly methocarbamol, 500 mg, Oral, TID metoprolol tartrate, 25 mg, Oral, BID pantoprazole, 40 mg, Oral, Daily polyethylene glycol, 17 g, Oral, Daily potassium chloride, 40 mEq, Oral, Once Followed by potassium chloride, 20 mEq, Oral, Once primidone, 50 mg, Oral, BID rosuvastatin, 40 mg, Oral, Nightly sodium chloride, 10 mL, Intravenous, q12h PRN medications: acetaminophen, benzocaine-menthol, bisacodyl, calcium carbonate, hydrOXYzine pamoate, ipratropium-albuterol, moisturizing mouth, [DISCONTINUED] ondansetron ODT OR ondansetron OR [DISCONTINUED] ondansetron, oxyCODONE OR oxyCODONE, promethazine OR [DISCONTINUED] promethazine OR [DISCONTINUED] promethazine, simethicone, sodium chloride Physical Exam: GENERAL: Well developed, well nourished. No acute distress. RESP/CHEST: Clear to auscultation bilaterally with symmetric expansion; non labored. Sternum stable, sternotomy as noted below. CARD: RRR. S1S2. No murmur, rub, or gallop. No JVD. No lower extremity edema. Pedal pulses palpable+2. Extremities: No cyanosis or clubbing. GI: Soft, nontender, nondistended. SKIN: No rash, sores, lesions or subcutaneous nodules. Midsternal incision healing well, edges wellapproximated. EVH site CDI. Wound vac to midline abdominal incision. LENA to left abdomen. Colostomy with ostomy bag in place. NEURO: AAOx4. Motor intact and no focal deficits PSYCH: Mood and affect congruent and appropriate to situation. Assessment and Plan: Ms. Rere Hunter is a 53 year old with PMH significant for anxiety, depression, COPD, and tobacco abuse. She initially presented to [facility]. She ruled in for NSTEMI and underwent cardiac catheterization. She was found to have multivessel CAD with critical left main stenosis. She was transferred to for surgical revascularization evaluation. She is now s/p CABG x 4 on 05/06. Postoperative course complicated by ileus s/p exploratory lap, extended left colectomy and end colostomy creation on 05/23 for colonic perforation. This was followed by US guided drain placement by IR on 06/04 for fluid collection in the abdomen (perisplenic). Multivessel CAD (POA) NSTEMI on presentation S/p CABG x 4 on 05/06 - Patient presented to OSH on 05/01/24 with chest pain where tropon levels were 0.05 > 0.23 > 0.16 & LHC reveal mvCAD - Coronary artery bypass grafting x4 with CHOWDARY to LAD as a free graft, reverse saphenous vein graftsequential to ramus intermedius artery then to obtuse marginal artery 1, reverse saphenous vein graft to PDA. Greater saphenous vein vessel harvest of left and right side with endoscopic technique - Continue asa, statin, metoprolol - Routine post cardiac surgery care: Sternal precautions x 6 weeks, PT, bowel regimen to prevent constipation and aggressive pulmonary toilet. Ileus (resolved) Gastric Perforation VS Colonic Perforation Perisplenic Fluid Collection S/p ex lap with left colon resection with end colostomy creation with blue surgery on 05/23/2024 - 06/01: CT abd per Blue surgery giving increasing WBC - 06/02: CT yd with fluid collection consistent with abscess. Started on zosyn yd evening. IR consulted for fluid drainage. Plan for IR procedure on Tuesday - 06/04: S/p Acordian drain placement with IR this AM. Fluid cx pending. Continue zosyn. Blue surg recs: continue zosyn at least 4 days s/p IR drain placement (through 06/08-completed) or change abx based on culture data. - 06/08: Seen by surgery in evening, both drains remain, monitoring output, strip LENA drain BID - 06/13: Both drains remain, continue to monitor - 06/15: IR placed drain removed yesterday Leukocytosis (POA) (resolved) Abdominal Fluid Collection - possible reactive secondary to MS - WBC 12.8, afebrile - continue to monitor - 05/31: WBC 26.51 - 06/01: WBC 33.03. CT abd per blue surgery - 06/02: WBC 33.90. CT yd with fluid collection. Started on zosyn yd evening. IR consulted for fluiddrainage. - 06/03: WBC 20.40. Plan for IR procedure tomorrow - 06/04: WBC 22.10. S/p Drain placement his AM. Fluid cx pending. Continue zosyn. Blue surg recs: continue zosyn at least 4 days s/p IR drain placement or change abx based on culture data. - 06/05: C/O intense ABD pain after eating any food; surgery reassed with recs for no carbonated beverages and encourage mobility, KUB shows gas distribution. WBC count 19.81 - 06/06: Pain continues after eating. WBC 24.98 - 06/07: Channing count in progress. WBC 16.9 - 06/08: WBC 14.57; 06/09 WBC 12.2 - Afebrile, surgery is following - [place] (two black + bridge) MWF by nursing - Gas pain, ostomy functioning appropriately - Follow SGE LENA output (superior drain in fluid cavity near pancreas) - 06/10: WBC 20.16, afebrile - 06/11: Procalcitonin, add diff to CBC, KUB and CXR - 06/13: WBC 14.79, afebrile - 06/14: WBC 21.2, afebrile, Surgery pulled 1 of 2 drains - 06/15: WBC 15.65, afebrile - 06/16: WBC 9.35 Acute Blood Loss Anemia - Monitor and transfuse for Hgb < 7 - 06/01: H/H 9.7/29.3 - 06/10: H/H 10.2/32 - 06/12: 9.3/29.4 - 06/13: H/H 9.8/30.5 - 06/15: H/H 10.3/31.8 - 06/16: H/H 10.2/30.1 Hypocalcemia (POA) - monitor and replace prn Hypomagnesemia (resolved) - monitor and replete prn Hyponatremia - fluid restriction Thrombocytosis - platelets 478 - continue to monitor - 06/13: platelets 409 - 06/15: platelets 437 - 06/16: platelets 470 Transaminitis - ALT 122, AST 80, alkphos 258, Tbili 0.3 - improved - 06/13: ALT 99, AST 52, alk phos 212, Tbili 0.3 - 06/15: ALT 59, AST 32, alk phos 181, Tbili 0.3 - 06/16: ALT 55, AST 37, alk phos 170, Tbili 0.3 Prolonged QT (POA) Sinus tachycardia Incomplete RBBB - continue to monitor rhythm Acute postoperative pain - Abdominal tenderness and pain - [facility] Total Parenteral Nutrition (TPN) (discontinued) - Started on 05/20 - 05/31: Calorie count completed and demonstrated pt was only meeting 12-13% of calorie requirements. Repeat calorie count in progress, to end today 06/07 - Continue TPN until current bag is empty 06/09, then trial discontinuing it - Start marinol - Promote PO intake 06/15: prealbumin 13.3 (up from 6.5 on 05/09) Anxiety (POA) Depression (POA) - Continue home bupropion and citalopram - Vistaril prn COPD (POA) - Duo nebs prn GERD (POA) - 05/07 extubated, not on home PPI, dc'd - 05/08 pt denies any GERD symptoms - 05/09 + PPI for reflux - 05/10 docusate, metoclopramide, miralax, senna, simethicone, continue NG to low intermitted, CLD for pt comfort, passing gas - 05/11 as above denies reflux today NG clamp trial - 05/14 PPI per blue surgery rec for blood tinged NG output - NG now removed Hyperlipidemia (POA) Hypertriglyceridemia (POA) Hypoalphalipoproteinemia (POA) - 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 Continue metoprolol - continue home primidone Tobacco abuse (POA) - complicates all aspects of care - cessation counseling - NRT prn Overweight (POA) (resolved) Delirium (resolved) Acute hypoxic respiratory failure (resolved) Cardiac Volume Overload (resolved) Hypoglycemia (resolved) Hypokalemia (resolved) Thrombocytopenia (POA) (resolved) Hypernatremia (resolved) Hypermagnesemia (resolved) Hyperphosphatemia (resolved) Hypophosphatemia (resolved) MESHA (resolved) Hyperkalemia (resolved) Pleural effusion (resolved) Low cardiac output syndrome (resolved) Nausea with Vomiting Plan: Continue current plan of care. Continue to encourage to eat. Mobilize. Cardiothoracic Surgery [phone] * Progress Notes - Annika Perez RN - 06/15/2024 1:11 PM EDT Case Management Discharge Note Rere Hunter 53 y.o. female CSN: [id number] Admission: 05/01/2024 11:01 PM Primary Problem: CAD, multiple vessel Primary Integrated Marketing Intern: Primary Caregiver: Self Assistance Available at Discharge: Availability of Care Givers (#Hours): No assistance needed Family/Integrated Marketing Intern(s) Willingness Assessed to care for patient at home: Yes Family/Integrated Marketing Intern(s) Readiness Assessed to care for patient at home: Yes Housing Circumstances-Z Codes: Housing Circumstances (select all that apply): None Applicable Patient Referred to Financial or Community Resources: Financial Resources: Other (Comment) (n/a) Discharge Facility/Level of Care Needs: Discharge Facility/Level of Care Needs: 1-Home or Self Care Patient's Choice of Community Agency(s): Patient's Choice of Community Agency(s): n/a Patient/Family Anticipated Services at Transition: Patient/Family Anticipated Services at Transition: durable medical equipment, other (see comments) (outpatient PT/OT) DME/Equipment Needed after Discharge: Equipment Currently Used at Home: none Equipment Needed After Discharge: walker, rollator Readmission Within the Last 30 Days: Readmission Within the Last 30 Days: no previous admission in last 30 days Medicare Documentation: Medicare Second Notice?: No Follow-up: [facility] [address], [address] [facility] [place] [address] [facility] [address] [address] Go on 08/02/2024 Your appointment time is 2pm Please arrive 15 minutes early and bring bottles of medications. [facility] [address] [facility] [id number] Discharge Transportation: Transportation Anticipated: family or friend will provide Transportation Home at Discharge: Family/Friend will Provide Follow Up Transport: Transportation Needed to Follow up Appoinments: Family/Friend will Provide Additional Comments: Per primary team patient is medically ready and may discharge over the weekend. CM placed rollator referral to [place]. CM notified primary team to give patient a script for outpatient Pt/OT. Patient is agreeable with discharge plan. No CM/SW needs identified. Daughter to assist and transport upon discharge. Annika Perez RN * Progress Notes - Trinity Yousif, [employer]TER - 06/15/2024 9:17 AM EDT CVT Progress Note 24 Hour Events/HPI: Resting quietly in bed. Complains of right hip pain and sternal pain since mechanical fall yesterday. Denies SOA. No acute events overnight. Afebrile and hemodynamically stable. Tolerating po diet and having bowel movements. Eating 50% or greater at all meals. Review of Systems: A complete ROS was obtained. All were negative except as noted in HPI. Objective: All laboratory data, images, tracings, and vital sign data for past 24 hours are personally reviewed unless otherwise noted. All images personally reviewed and I agree with the radiology interpretation @PATIENTWT@ , Weight: 61.1 kg (134 lb 12.8 oz) , Ht Readings from Last 1 Encounters: 06/14/24 1.549 m (5' 0.98 ) , Body mass index is 22.42 kg/m??. VITALS (last 24h) Temp: [36.9 ??C (98.4 ??F)-37 ??C (98.6 ??F)] 36.9 ??C (98.5 ??F) Heart Rate: [93-103] 98 Resp: [14-19] 14 BP: (110-130)/(71-94) 119/74 Visit Vitals BP 119/74 (BP Location: Right arm, Patient Position: Lying) Pulse 98 Temp 36.9 ??C (98.5 ??F) (Oral) Resp 14 Ht 1.549 m (5' 0.98 ) Wt 53.8 kg (118 lb 9.7 oz) SpO2 95% BMI 22.42 kg/m?? Smoking Status Every Day BSA 1.52 m?? I & O Summary Intake/Output Summary (Last 24 hours) at 06/15/2024 0917 Last data filed at 06/15/2024 0500 Gross per 24 hour Intake 300 ml Output 2240 ml Net -1940 ml LABS CBC WBC 15.65 (H) Hb 10.3 (L) Plt 437 (H) Hct 31.8 (L) ANC ?? INR ??, PTT ??, Anti-Xa ?? BMP Na 128 (L) Cl 95 (L) BUN 10 Glu 100 (H) K 3.8 Co2 25 Cr 0.58 (L) Ca 8.0 (L) iCa ?? Mg 1.4 (L), Phos ?? Lactate ?? LFT AST 32 AlkPhos 181 (H) T Prot 6.4 ALK 59 (H) Bili 0.3 Alb ?? D.Bili ?? HOURS) MEDICATIONS aspirin, 81 mg, Oral, Daily buPROPion XL, 300 mg, Oral, Daily citalopram, 40 mg, Oral, Daily dronabinol, 2.5 mg, Oral, BID AC enoxaparin, 40 mg, Subcutaneous, Daily lactulose, 20 g, Oral, BID lidocaine, 2 patch, Apply externally, q24h magnesium sulfate, 4 g, Intravenous, Once melatonin, 6 mg, Oral, Nightly methocarbamol, 500 mg, Oral, TID metoprolol tartrate, 25 mg, Oral, BID pantoprazole, 40 mg, Oral, Daily polyethylene glycol, 17 g, Oral, Daily primidone, 50 mg, Oral, BID rosuvastatin, 40 mg, Oral, Nightly sodium chloride, 10 mL, Intravenous, q12h PRN medications: acetaminophen, benzocaine-menthol, bisacodyl, calcium carbonate, hydrOXYzine pamoate, ipratropium-albuterol, moisturizing mouth, [DISCONTINUED] ondansetron ODT OR ondansetron OR [DISCONTINUED] ondansetron, oxyCODONE OR oxyCODONE, promethazine OR [DISCONTINUED] promethazine OR [DISCONTINUED] promethazine, simethicone, sodium chloride Physical Exam: GENERAL: Well developed, well nourished. No acute distress. RESP/CHEST: Clear to auscultation bilaterally with symmetric expansion; non labored. Sternum stable, sternotomy as noted below. CARD: RRR. S1S2. No murmur, rub, or gallop. No JVD. No lower extremity edema. Pedal pulses palpable+2. Extremities: No cyanosis or clubbing. GI: Soft, nontender, nondistended. SKIN: No rash, sores, lesions or subcutaneous nodules. Midsternal incision healing well, edges wellapproximated. EVH site CDI. Wound vac to midline abdominal incision. LENA to left abdomen. Colostomy with ostomy bag in place. LUE PICC dressing CDI. NEURO: AAOx4. Motor intact and no focal deficits PSYCH: Mood and affect congruent and appropriate to situation. Assessment and Plan: Ms. Rere Hunter is a 53 year old with PMH significant for anxiety, depression, COPD, and tobacco abuse. She initially presented to [facility]. She ruled in for NSTEMI and underwent cardiac catheterization. She was found to have multivessel CAD with critical left main stenosis. She was transferred to for surgical revascularization evaluation. She is now s/p CABG x 4 on 05/06. Postoperative course complicated by ileus s/p exploratory lap, extended left colectomy and end colostomy creation on 05/23 for colonic perforation. This was followed by US guided drain placement by IR on 06/04 for fluid collection in the abdomen (perisplenic). Multivessel CAD (POA) NSTEMI on presentation S/p CABG x 4 on 05/06 - Patient presented to OSH on 05/01/24 with chest pain where tropon levels were 0.05 > 0.23 > 0.16 & LHC reveal mvCAD - Coronary artery bypass grafting x4 with CHOWDARY to LAD as a free graft, reverse saphenous vein graftsequential to ramus intermedius artery then to obtuse marginal artery 1, reverse saphenous vein graft to PDA. Greater saphenous vein vessel harvest of left and right side with endoscopic technique - Continue asa, statin, metoprolol - Routine post cardiac surgery care: Sternal precautions x 6 weeks, PT, bowel regimen to prevent constipation and aggressive pulmonary toilet. Ileus (resolved) Gastric Perforation VS Colonic Perforation Perisplenic Fluid Collection S/p ex lap with left colon resection with end colostomy creation with blue surgery on 05/23/2024 - 06/01: CT abd per Blue surgery giving increasing WBC - 06/02: CT yd with fluid collection consistent with abscess. Started on zosyn yd evening. IR consulted for fluid drainage. Plan for IR procedure on Tuesday - 06/04: S/p Acordian drain placement with IR this AM. Fluid cx pending. Continue zosyn. Blue surg recs: continue zosyn at least 4 days s/p IR drain placement (through 06/08-completed) or change abx based on culture data. - 06/08: Seen by surgery in evening, both drains remain, monitoring output, strip LENA drain BID - 06/13: Both drains remain, continue to monitor - 06/15: IR placed drain removed yesterday Leukocytosis (POA) Abdominal Fluid Collection - possible reactive secondary to MS - WBC 12.8, afebrile - continue to monitor - 05/31: WBC 26.51 - 06/01: WBC 33.03. CT abd per blue surgery - 06/02: WBC 33.90. CT yd with fluid collection. Started on zosyn yd evening. IR consulted for fluiddrainage. - 06/03: WBC 20.40. Plan for IR procedure tomorrow - 06/04: WBC 22.10. S/p Drain placement his AM. Fluid cx pending. Continue zosyn. Blue surg recs: continue zosyn at least 4 days s/p IR drain placement or change abx based on culture data. - 06/05: C/O intense ABD pain after eating any food; surgery reassed with recs for no carbonated beverages and encourage mobility, KUB shows gas distribution. WBC count 19.81 - 06/06: Pain continues after eating. WBC 24.98 - 06/07: Channing count in progress. WBC 16.9 - 06/08: WBC 14.57; 06/09 WBC 12.2 - Afebrile, surgery is following - [place] (two black + bridge) MWF by nursing - Gas pain, ostomy functioning appropriately - Follow SGE LENA output (superior drain in fluid cavity near pancreas) - 06/10: WBC 20.16, afebrile - 06/11: Procalcitonin, add diff to CBC, KUB and CXR - 06/13: WBC 14.79, afebrile - 06/14: WBC 21.2, afebrile, Surgery pulled 1 of 2 drains - 06/15: WBC 15.65, afebrile Acute Blood Loss Anemia - Monitor and transfuse for Hgb < 7 - 06/01: H/H 9.7/29.3 - 06/10: H/H 10.2/32 - 06/12: 9.3/29.4 - 06/13: H/H 9.8/30.5 - 06/15: H/H 10.3/31.8 Hypocalcemia (POA) - monitor and replace prn Hypomagnesemia - monitor and replete prn Hyponatremia - fluid restriction Thrombocytosis - platelets 478 - continue to monitor - 06/13: platelets 409 - 06/15: platelets 437 Transaminitis - ALT 122, AST 80, alkphos 258, Tbili 0.3 - improved - 06/13: ALT 99, AST 52, alk phos 212, Tbili 0.3 - 06/15: ALT 59, AST 32, alk phos 181, Tbili 0.3 Prolonged QT (POA) Sinus tachycardia Incomplete RBBB - continue to monitor rhythm Acute postoperative pain - Abdominal tenderness and pain - [facility] Total Parenteral Nutrition (TPN) (discontinued) - Started on 05/20 - 05/31: Calorie count completed and demonstrated pt was only meeting 12-13% of calorie requirements. Repeat calorie count in progress, to end today 06/07 - Continue TPN until current bag is empty 06/09, then trial discontinuing it - Start marinol - Promote PO intake Anxiety (POA) Depression (POA) - Continue home bupropion and citalopram - Vistaril prn COPD (POA) - Duo nebs prn GERD (POA) - 05/07 extubated, not on home PPI, dc'd - 05/08 pt denies any GERD symptoms - 05/09 + PPI for reflux - 05/10 docusate, metoclopramide, miralax, senna, simethicone, continue NG to low intermitted, CLD for pt comfort, passing gas - 05/11 as above denies reflux today NG clamp trial - 05/14 PPI per blue surgery rec for blood tinged NG output - NG now removed Hyperlipidemia (POA) Hypertriglyceridemia (POA) Hypoalphalipoproteinemia (POA) - 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 Continue metoprolol - continue home primidone Tobacco abuse (POA) - complicates all aspects of care - cessation counseling - NRT prn Overweight (POA) (resolved) Delirium (resolved) Acute hypoxic respiratory failure (resolved) Cardiac Volume Overload (resolved) Hypoglycemia (resolved) Hypokalemia (resolved) Thrombocytopenia (POA) (resolved) Hypernatremia (resolved) Hypermagnesemia (resolved) Hyperphosphatemia (resolved) Hypophosphatemia (resolved) MESHA (resolved) Hyperkalemia (resolved) Pleural effusion (resolved) Low cardiac output syndrome (resolved) Nausea with Vomiting Plan: Right hip xray and CXR ordered and pending. Replace magnesium. Continue to encourage po intake. Prealbumin now 13.3 (from 6.5 on 05/09). CT head with no acute intracranial abnormalities. Cardiothoracic Surgery [phone] * Care Plan - Lelia Nuñez RN - 06/15/2024 1:55 AM EDT Problem: Adult Inpatient Plan of Care Goal: Plan of Care Review Outcome: Ongoing, Progressing Flowsheets (Taken 06/15/2024 0155) Progress: improving Plan of Care Reviewed With: patient Goal: Patient-Specific Goal (Individualized) Outcome: Ongoing, Progressing Goal: Absence of Hospital-Acquired Illness or Injury Outcome: Ongoing, Progressing Goal: Optimal Comfort and Wellbeing Outcome: Ongoing, Progressing Goal: Readiness for Transition of Care Outcome: Ongoing, Progressing * Consults - Gretchen Brothers RD - 06/14/2024 1:50 PM EDTAssociated Order(s): IP CONSULT TO NUTRITION SERVICES Adult Nutrition Evaluation Note Rere Hunter 53 y.o. female [facility]: [id number] Room/Bed 117/117A Nutrition evaluation type: follow-up Reason for evaluation: Provider consult/ Hospital course: 53 y.o. female presents for CABG evaluation. OR on 05/06. 05/16: NPO x 5 days d/t ileus. Trial of clamping NGT. SGE is following. Pt has been intermittently confused. 05/18: Patient transferred back to ICU yesterday given worsening abdominal exam, electrolyte abnormalities, and overall care requirements. Having fevers, tachycardia. General surgery and GI acutely involved for worsening bowel exam with CT findings concerning for possible gastric perforation. 05/21: Currently receiving TPN. NGT to suction. 05/29: S/P Exploratory laparotomy, extensive lysis of adhesions, left colectomy(performed by colorectal surgery), end colostomy creation, abdominal washout, application of negative pressure wound VAC therapy to skin and soft tissues on 05/23 d/t colon perforation. Continues on TPN, decreased to half rate. Po diet initiated and advanced on 05/28; calorie count started. 06/07: Pt continues on TPN, with PO diet. New Kcal count in progress. 06/11: Kcal count completed. Off TPN att. 06/14: PO intake continues, Diet now regular: GI Ostomy. Team considering possible TF to start. Past medical/ surgical history: Medical History[1] Surgical History[2] Social history: Additional comments: Minimal PO intake recently, diet advancing per protocol. 05/11: Pt reports appetite improving, trying to eat. Pt denied n/v/d/c, denied chewing/swallowing difficulty. Pt denied involuntary wt changes. No feeding tube present. 05/31: Nurse providing care at time of visit 06/04: Pt out of room (IR) at time of visit 06/07: Pt reports persistent abd pain with PO intake. AUTOMOTIVE PORTER present encourages pt to move to help relieve gas. Pt denied chewing/swallowing difficulty. UBW ~130# per pt, ~4.6% loss of BW. Pt tries to drink Boost shake, has not had Roque yet. TPN ongoing. Will f/u once kcal count complete. 06/11: Pt reports taste is still diminished att, but appetite is improved, abdominal pain is improved, less gas att. Pt does not like Boost, would like to try magic cup, inquired about other items that she can eat att. 06/14: Pt in bed, just finishing lunch. Pt reports that appetite continues to improve. Some n/v last evening and nausea this morning, improved with zofran per pt. Ostomy output consistent per pt. Pt denied chewing/swallowing difficulty. Vitals and Basic Assessment: BP: 108/75 Temp: 36.4 ??C (97.5 ??F) Invasive Ventilator Initiated (ETT/Trach Only): Yes Oxygen Therapy: None (Room air) O2 Delivery Method: Nasal cannula with capnography Jaida Coma Scale Score: 15 Shaan Scale Score: 19 Joshua/Cubbin Pressure Risk Score: 45 Most Recent BM Date: 06/03/24 GI Symptoms: Nausea Edema: Generalized Colostomy output: 180 mL Wound vac in place Allergies: NKFA Medications: aspirin, 81 mg, Oral, Daily buPROPion, 150 mg, Oral, BID FOLLOWED BY buPROPion XL, 300 mg, Oral, Daily citalopram, 40 mg, Oral, Daily dronabinol, 2.5 mg, Oral, BID AC enoxaparin, 40 mg, Subcutaneous, Daily lactulose, 20 g, Oral, BID lidocaine, 2 patch, Apply externally, q24h melatonin, 6 mg, Oral, Nightly methocarbamol, 500 mg, Oral, TID metoprolol tartrate, 25 mg, Oral, BID pantoprazole, 40 mg, Oral, Daily polyethylene glycol, 17 g, Oral, Daily primidone, 50 mg, Oral, BID rosuvastatin, 40 mg, Oral, Nightly sodium chloride, 10 mL, Intravenous, q12h PRN medications: acetaminophen, benzocaine-menthol, bisacodyl, calcium carbonate, hydrOXYzine pamoate, ipratropium-albuterol, moisturizing mouth, [DISCONTINUED] ondansetron ODT OR ondansetron OR [DISCONTINUED] ondansetron, oxyCODONE OR oxyCODONE, promethazine OR [DISCONTINUED] promethazine OR [DISCONTINUED] promethazine, simethicone, sodium chloride Meds were reviewed: Yes Labs: Lab Results Component Value Date GLUCOSE 105 (H) 06/14/2024 CALCIUM 8.5 (L) 06/14/2024 NA 130 (L) 06/14/2024 K 3.7 06/14/2024 CO2 26 06/14/2024 CL 94 (L) 06/14/2024 BUN 13 06/14/2024 CREATININE 0.51 (L) 06/14/2024 PHOS 5.8 (H) 06/02/2024 MG 1.5 (L) 06/14/2024 HGBA1C 5.3 05/01/2024 Anthropometrics: Height: 154.9 cm (5' 0.98 ) Weight: 54.5 kg (120 lb 2.4 oz) BMI (Calculated): 22.71 Weight Evaluation: Overweight (BMI 25-29.9) [place] Body Weight (kg): 47.7 Percent [place] Body Weight: 114 Adjusted Body Weight (kg): 50.9 Wt Readings from Last 10 Encounters: 06/14/24 54.5 kg (120 lb 2.4 oz) 06/28/23 59 kg (130 lb) 04/26/23 62.6 kg (138 lb) 01/18/23 61.7 kg (136 lb) Estimated Needs: Kcal/ K-35 Kcal Provided: 7414-9532 Kcal Needs Based On: Current weight Gm Protein/ Kg : 1.5-2 Protein Provided: 81-109 Protein Needs Based On: Current weight Metabolic Cart Study Results: Current Nutrition Intake: Diet Supplements: Boost Very High Calorie, Roque Packet Diet Order: Adult Diet Diet Texture: Regular Adult Carbohydrate Restriction: Consistent CHO 2 (4901-5674 Channing, 80 g/meal) Fat Restriction: Cardiac Other Restrictions: Other (Comment) (GI: Ostomy) Percent Meals Eaten (%): No updates att Diet Experience and Nutrition History: Diet Education Provided: Will monitor Pertinent home medications: reviewed Gnosticist needs: Nutrition Focused Physical Exam: Physical exam performed on (date): 06/14/24 Temples (muscles): None Clavicle (muscle): None Shoulder (muscle): None Interosseous (muscle): None Orbital (fat): None Triceps (fat): None Assessment of Malnutrition: Malnutrition Identified: No Nutrition Problem: Increased nutrient needs protein, calories related to s/p CABG/exp lap as evidenced by increased metabolic demands of surgical wound healing. Status of Nutrition Diagnosis: Ongoing Inadequate energy intake related to ileus/possible gastric perforation -> colonic perforation asevidenced by NPO x 7 days -> TPN initiated -> TPN + po diet Status of Nutrition Diagnosis: Ongoing Nutrition Interventions and Recommendations: - Continue PO diet as tolerated. - Continue magic cup once daily + Roque BID (located in [employer]). -Document PO intake in flowsheet -TF Rec's if needed: When medically appropriate initiate Isosource 1.5 @ 20mL/hr and advance by 10mL q12hrs as tolerated to goal rate of 50mL/hr x 22hrs/day. Will provide (1100mL), 1650 kcal, 74g protein, 193g CHO, 16g fiber, 64 g fat, 840 mL water, 110% RDI's vit/min. (Roque BID adds 180 kcal, 5 gprotein, 16g CHO) -Please monitor closely for any s/s of refeeding syndrome or other intolerance -Monitor elytes closely, replace PRN -Can consider cyclical feeds (nocturnal) if PO diet concurrent -FW per team Nutrition Monitoring and Goals: - Will monitor PO intake, weight, skin, labs, nutrition status, GI fxn - Improved PO intake, goal >/= 50% of most meals (revised) - Pt will maintain body weight throughout hospital admission (ongoing) - ostomy diet education prior to d/c- completed -f/u NFPE as able- completed Acuity Level: 4 Gretchen Brothers, RD, LD [1] Past Medical History: Diagnosis Date Anxiety COPD (chronic obstructive pulmonary disease) ([facility] [place]) 05/01/2024 Continue Duo nebs q6 SPO2 goal >88% Depression GERD (gastroesophageal reflux disease) 05/01/2024 Continue Protonix 40 mg daily Hyperkalemia 05/06/2024 Now resolved, pt with hypokalemia requiring replacement On mechanically assisted ventilation ([facility] [place]) 05/06/2024 Arrived to ICU intubated 05/07 extubated to 4LNC 05/08 resolved Tobacco use 05/01/2024 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 Complicates all aspects of care and recovery Tremor 05/01/2024 Continue home primidone 50 mg BID [2] Past Surgical History: Procedure Laterality Date ABDOMINAL ADHESION SURGERY SECTION, CLASSIC CHOLECYSTECTOMY CORONARY ARTERY BYPASS GRAFT 05/06/2024 Coronary artery bypass grafting x4 with CHOWDARY to LAD as a free graft, reverse saphenous vein graft sequential to ramus intermedius artery then to obtuse marginal artery 1, reverse saphenous vein graftto PDA.(Reda) HAND SURGERY Right Tendon repair SHOULDER SURGERY * Progress Notes - Aaron Calero - 06/14/2024 10:48 AM EDT PHYSICAL THERAPY TREATMENT PATIENT DATA Patient Name Rere Hunter Session Date 06/14/2024 Total Treatment Time 23 min PT Discharge Recommendations Home with assistance, Home health PT, Home health OT PT Equipment Recommendations Rollator PRECAUTIONS Weight Bearing Precautions (if applicable) ROM Restrictions (if applicable) Medical Precautions Yes Medical Precautions: Fall precautions, Sternal HOME LIVING/SET-UP Lives With Son, Adult (great aunt;) Home Type Mobile home Home Equipment None Home Layout Stairs to enter with rails, One level (pt plans to d/c to a family member's house, one level, no GARRISON) 3 Bathroom Layout Additional Comments PRIOR LEVEL OF FUNCTION Receives help from No assist required prior to admission Level of Mobility Ambulatory- community Mobility Harmon Independent gait without device (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 (Active) Closed/Suction Drain 3 Left LUQ Accordion 8 Fr. (Active) Colostomy Transverse RUQ (Active) PICC Double Lumen 05/19/24 Left Basilic vein (Active) Negative Pressure Wound Therapy Abdomen Lower;Upper;Mid (Active) Pre-Session Supine, Head of bed elevated, Lines intact RN agreeable to session. Post-Session Sitting in chair, Lines intact, RN notified, Call light in reach, Chair alarm All needs met. Bracing (if applicable) SUBJECTIVE PARTICIPANTS IN CARE Visitors Present No, Subjective Report Pt has NOT been: * Ambulating hallway distances since last PT treatment. Pt HAS been: * Ambulating in-room distances * Transferring Bed <> Chair since last PT treatment. Pt remains unaware when pt may be discharged from [facility]. Tester Equipment (if applicable) OBJECTIVE & INTERVENTIONS PAIN Pain Intensity / Location Pre-Mobility: Abdominal pain 8/10 Pain Intensity / Location Post-Mobility: Abdominal pain 8/10 Prior to PT's departure: * rest was provided * pt was positioned for comfort * pillow support was provided * RN was informed of pt's pain DELIRIUM SCREENING Urban Agitation Sedation Scale (RASS): Alert and calm Feature 3: Altered Level of Consciousness: Negative THERAPEUTIC ACTIVITY Treatment Minutes 23 BED MOBILITY Level of Harmon Physical/Non- physical Assist Adaptive Equipment Utilized Rolling/ Turning Scooting/ Bridging Stand-by assist Set-up required, Minimal cues Supine to Sit Stand-by assist Set-up required, Minimal cues Sit to Supine Interventions TRANSFERS Level of Harmon Physical/Non- physical Assist Adaptive Equipment Utilized Sit to Stand Stand-by assist Set-up required, Minimal cues Rollator Stand to sit Stand-by assist Verbal Cues, Set-up required Rollator Bed to Chair Toilet Transfer Shower Transfer Interventions AMBULATION Level of Harmon Distance Adaptive Equipment Utilized Ambulation Standby assist 640 ft Rollator Comments Safely done. Fatigued after 500 ft . 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 presence was necessary for: * managing lines * progressing patient ambulation distances * monitoring patient vital sign stability * decreasing patient's risk of falling while progressing pt's distances THERAPEUTIC EXERCISE Treatment Minutes In Sitting - Supported position, pt performed x10 reps of the following exercises bilaterally: * Glut Sets x2-3 sec holds * Marching * Hip Abduction-Adductions * Long Arc Quads * Ankle Pumps Verbal cuing and assistance was required for proper technique and for maximizing muscle contractibility and strength. Pt was provided the rationale for performing exercise program 2-3x daily, a written HEP was provided for improved pt recall of PT-prescribed HEP, and pt was provided the opportunity to review the written HEP and ask questions. ASSESSMENT Pt is improving, as noted by: less assistance was required for pt to complete some or all transfersand pt demonstrated improved sitting and/or standing balance during this PT treatment compared to last PT treatment. Pt has the following impairments: impaired activity tolerance and gross functionalweakness, which is limiting the pt from performing independent functional mobility. PT RECOMMENDATIONS Discharge Destination Home with assistance, Home health PT, Home health OT Discharge Equipment Rollator PLAN Pt may continue to benefit from skilled PT for addressing patient's impairments and reducing patient's participation restrictions and activity limitations. PT GOALS PT GOAL DETAILS DATE ASSESSED STATUS PROGRESS PT Goal 1: Pt will perform supine<>sit transfers with CGA and HOB flat, no use of bed rails. PT Goal 1 Established Date: 05/07/24 PT Goal 1 Time Frame: 2 weeks 06/07/24 Goal ongoing Continuing progress towards goal PT Goal 2: Pt will perform sit to stand and bed to chair transfers with Stefan and LRD. PT Goal 2 Established Date: 05/07/24 PT Goal 2 Time Frame: 2 weeks 06/07/24 Goal ongoing Continuing progress towards goal PT Goal 3: Pt will ambulate >600ft with Stefan and LRD. PT Goal 3 Established Date: 05/07/24 PT Goal 3 Time Frame: 2 weeks 06/07/24 Goal ongoing Continuing progress towards goal PT Goal 4: Pt will safely ascend/descend 3 steps with SBA, one handrail. PT Goal 4 Established Date: 05/07/24 PT Goal 4 Time Frame: 2 weeks 06/07/24 Goal ongoing Continuing progress towards goal Written by Aaron Calero on 06/14/24 at 2:29 PM. * Progress Notes - Heather Ram - 06/14/2024 9:17 AM EDT Case Management Adult Progress Note Rere Hunter 53 y.o. female CSN: [id number] Admission: 05/01/2024 11:01 PM Primary Problem: CAD, multiple vessel Anticipated Discharge Date: TBD Has Discharge Plans Changed? No Housing Circumstances: Not Applicable Housing Circumstances Action Taken: Other N/A Additional Comments SW spoke with primary team this date re: pt's plan of care. According to primary team, this pt is not medically stable for DC this date and is not anticipated to be stable within 72 hrs. Per team, continuing to encourage and monitor PO intake. See medical notes for more detail. No further SW concerns identified at this time. SW will monitor pt's progress and will follow up with DC planning and needs as appropriate. NAYA Albarran * Progress Notes - Stefany Edwards APRN - 06/14/2024 8:15 AM EDT 06/14/24 Rere Hunter HPI CONSULT: colon perforation and fluid collection between stomach and colon 53F HTN, HLD, COPD, GERD, tobacco use, and CAD s/p 4v CABG on 05/06 05/23: ex lap, extended L colectomy and end colostomy creation ([facility]) 06/04: IR-guided drain Interval: resting in bed, abdominal exam stable. IR drain to LUQ removed on rounds. Dressing applied. Tolerated well. Edited by: Stefany Edwards APRN at 06/14/2024 1156 Relevant review of systems was obtained as able and is negative unless stated above in HPI. Vital signs: Vitals: 06/14/24 0725 BP: 108/75 Pulse: 91 Resp: 15 Temp: 36.4 ??C (97.5 ??F) SpO2: 96% Physical Exam Constitutional: General: She is not in acute distress. HENT: Head: Normocephalic. Eyes: Extraocular Movements: Extraocular movements intact. Cardiovascular: Rate and Rhythm: Normal rate. Pulses: Normal pulses. Pulmonary: Effort: Pulmonary effort is normal. No respiratory distress. Abdominal: General: Abdomen is flat. There is no distension. Palpations: Abdomen is soft. Tenderness: There is no abdominal tenderness. Comments: Wv holding suction, LENA with murky output, IR drain removed, dressing applied CDI. Musculoskeletal: General: Normal range of motion. Cervical back: Normal range of motion. Neurological: Mental Status: She is alert and oriented to person, place, and time. Psychiatric: Behavior: Behavior normal. Intake/Output Summary (Last 24 hours) at 06/14/2024 1158 Last data filed at 06/14/2024 1138 Gross per 24 hour Intake 530 ml Output 1725 ml Net -1195 ml Lines/Drains/Tubes: Patient Lines/Drains/Airways Status Active Airway None Output by Drain (mL) 06/12/24 0700 - 06/12/24 1859 06/12/24 1900 - 06/13/24 0659 06/13/24 0700 - 06/13/24 1859 06/13/24 1900 - 06/14/24 0659 06/14/24 0700 - 06/14/24 1158 Closed/Suction Drain 1 Left Abdomen Bulb 19 Fr. 0 0 0 Closed/Suction Drain 3 Left LUQ Accordion 8 Fr. 0 0 0 Labs in last 18 hours: CBC WBC 21.20 (H) Hb 11.1 (L) Plt 433 (H) Hct 33.6 (L) ANC ?? INR ??, PTT ??, Anti-Xa ?? MCV 89 BMP Na 130 (L) Cl 94 (L) BUN 13 Glu 105 (H) K 3.7 Co2 26 Cr 0.51 (L) Ca 8.5 (L) iCa 4.6 Mg 1.5 (L), Phos ?? Lactate ?? LFT AST 36 (H) AlkPhos 216 (H) T Prot 7.0 ALK 79 (H) Bili 0.3 Alb ?? D.Bili ?? Lab Trends: H/H Results from last 7 days Lab Units 06/14/24 0058 06/13/24 0040 06/12/24 0324 HEMOGLOBIN g/dL 11.1* 9.8* 9.3* HEMATOCRIT % 33.6* 30.5* 29.4* INR Cr Results from last 7 days Lab Units 06/14/24 0058 06/13/24 0040 06/12/24 0324 CREATININE mg/dL 0.51* 0.54* 0.59* Medications reviewed. Vital signs reviewed. Labs reviewed. Radiography reviewed. Assessment and Plan: Medical Problems and Relevant Plans Hospital Problems POA * (Principal) CAD, multiple vessel Yes Overview Addendum 05/23/2024 8:44 AM by Marybel Suarez, ARASH Patient presented to OSH on 05/01/24 c/o chest pain, C reveal mvCAD S/p CABG with Dr. Austin on 05/07 Anxiety and depression Yes Overview Addendum 05/23/2024 8:43 AM by Marybel Suarez, AUTOMOTIVE PORTER Continue home bupropion XL 300 mg daily Continue home citalopram 40 mg daily Continue PRN hydroxyzine 25 mg q6 COPD (chronic obstructive pulmonary disease) ([facility]) Yes Overview Addendum 05/23/2024 8:43 AM by Marybel Suarez, ARASH Duo nebs q6 Wean O2 for SPO2 goal >88% Tobacco use Yes Overview Signed 05/01/2024 8:37 PM by Marylu Carvajal APRN, DNP 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 Complicates all aspects of care and recovery NSTEMI (non-ST elevated myocardial infarction) (CMS/HCC) Yes Overview Addendum 05/22/2024 11:00 AM by Jose Aburto MD Diagnosed at OSH with elevated troponins of 0.05 to 0.23 to 0.16 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, 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 Repeat troponins pending 05/07 POD 1 4V CABG 05/09 EKG ordered and reviewed no signs of ST changes 05/10 ST 105 05/11 ST 100-105 GERD (gastroesophageal reflux disease) Yes Overview Addendum 05/14/2024 2:06 PM by Cydney Luu MD Continue Protonix 40 mg daily 05/07 extubated, no on home PPI dc'd 05/08 pt denies any GERD symptoms 05/09 + PPI for reflux 05/10 docusate, metoclopramide, miralax, senna, simethicone, continue NG to low intermitted, CLD forpt comfort, passing gas 05/11 as above denies reflux today NG clamp trial 05/14 PPI per blue surgery rec for blood tinged NG output Leukocytosis Yes Overview Addendum 05/23/2024 8:50 AM by Marybel Suarez, AUTOMOTIVE PORTER Remains febrile with elevated EBC Cultures ordered and pending Thrombocytosis Yes Hypocalcemia Yes Hyperlipidemia Yes Overview Signed 05/23/2024 8:47 AM by Marybel Suarez, AUTOMOTIVE PORTER Restart statin when no longer NPO THOM (obstructive sleep apnea) Yes Overview Addendum 05/23/2024 8:45 AM by Marybel Suarez, AUTOMOTIVE PORTER Refusing home CPAP remains on NC S/P CABG x 4 Not Applicable Overview Addendum 05/23/2024 8:45 AM by Marybel Suarez, 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 Austin Aspirin, statin, beta stacey as clinically appropriate Hypertension Yes Overview Addendum 05/23/2024 8:47 AM by Marybel Suarez, AUTOMOTIVE PORTER Metop IV while NPO Restart PO metop when appropriate Acute blood loss anemia (ABLA) No Overview Addendum 05/23/2024 8:43 AM by Marybel Suarez APRN Lab Results Component Value Date HGB 9.0 (L) 05/23/2024 CTM with daily labs Transfuse as indicated Gastric perforation (CMS/HCC) No Overview Addendum 06/11/2024 8:53 AM by Uriah Ricardo PA colonic perforation. S/p ex lap 05/23/24 Post-op pain No Overview Addendum 05/25/2024 10:12 AM by Dave Baird DO Abdominal tenderness and pain 11/23 Increase dilaudid IV ketamine Abdominal fluid collection No Hyponatremia No Hypomagnesemia No Transaminitis No Thrombocytopenia (CMS/HCC) Yes Colon perforation (CMS/HCC) No Overview Addendum 06/11/2024 8:52 AM by Uriah Ricardo PA Noted on CT scan 05/23/24 S/p left colectomy and end colostomy 05-23-24 Non-Hospital Problems Essential tremor Sinus tachycardia Incomplete RBBB Tremor Plan: - see [place] - [place] ([place] + [place]) MWF by nursing - ostomy functioning appropriately - Follow SGE LENA output (superior drain in abscess cavity near pancreas) Edited by: Stefany Edwards APRN at 06/14/2024 1158 Stefany Edwards APRN * Progress Notes - Uriah Ricardo PA - 06/14/2024 7:17 AM EDT CVT Progress Note 24 Hour Events/HPI: Nurse reports no colostomy output since 06/10 Continues very poor PO intake Denies Chest pain or dyspnea Ambulating Objective: All laboratory data, images, tracings, and vital sign data for past 24 hours are personally reviewed unless otherwise noted. All images personally reviewed and I agree with the radiology interpretation @PATIENTWT@ , Weight: 61.1 kg (134 lb 12.8 oz) , Ht Readings from Last 1 Encounters: 06/11/24 1.549 m (5' 0.98 ) , Body mass index is 22.71 kg/m??. VITALS (last 24h) Temp: [36.8 ??C (98.2 ??F)-37.7 ??C (99.9 ??F)] 36.8 ??C (98.2 ??F) Heart Rate: [93-120] 100 Resp: [16-19] 16 BP: (108-127)/(66-85) 127/85 Visit Vitals BP 127/85 (BP Location: Right arm, Patient Position: Lying) Pulse 100 Temp 36.8 ??C (98.2 ??F) (Oral) Resp 16 Ht 1.549 m (5' 0.98 ) Wt 54.5 kg (120 lb 2.4 oz) SpO2 96% BMI 22.71 kg/m?? Smoking Status Every Day BSA 1.53 m?? I & O Summary Intake/Output Summary (Last 24 hours) at 06/14/2024 0717 Last data filed at 06/14/2024 0600 Gross per 24 hour Intake 511.25 ml Output 1220 ml Net -708.75 ml LABS Results from last 7 days Lab Units 06/14/24 0058 06/13/24 0040 06/12/24 0324 WBC 10*3/uL 21.20* 14.79* 10.53* HEMOGLOBIN g/dL 11.1* 9.8* 9.3* HEMATOCRIT % 33.6* 30.5* 29.4* PLATELETS 10*3/uL 433* 409* 393* CBC WBC 21.20 (H) Hb 11.1 (L) Plt 433 (H) Hct 33.6 (L) ANC ?? INR ??, PTT ??, Anti-Xa ?? BMP Na 130 (L) Cl 94 (L) BUN 13 Glu 105 (H) K 3.7 Co2 26 Cr 0.51 (L) Ca 8.5 (L) iCa 4.6 Mg 1.5 (L), Phos ?? Lactate ?? LFT AST 36 (H) AlkPhos 216 (H) T Prot 7.0 ALK 79 (H) Bili 0.3 Alb ?? D.Bili ?? HOURS) MEDICATIONS acetaminophen, 500 mg, Oral, q6h LINDA aspirin, 81 mg, Oral, Daily buPROPion XL, 300 mg, Oral, Daily citalopram, 40 mg, Oral, Daily dronabinol, 2.5 mg, Oral, BID AC enoxaparin, 40 mg, Subcutaneous, Daily lidocaine, 2 patch, Apply externally, q24h melatonin, 6 mg, Oral, Nightly methocarbamol, 500 mg, Oral, TID metoprolol tartrate, 25 mg, Oral, BID pantoprazole, 40 mg, Oral, Daily potassium chloride, 40 mEq, Oral, Once primidone, 50 mg, Oral, BID rosuvastatin, 40 mg, Oral, Nightly sodium chloride, 10 mL, Intravenous, q12h sodium chloride, 10 mL, Intravenous, q12h PRN medications: benzocaine-menthol, calcium carbonate, HYDROmorphone OR HYDROmorphone, hydrOXYzine pamoate, ipratropium-albuterol, moisturizing mouth, [DISCONTINUED] ondansetron ODT OR ondansetron OR [DISCONTINUED] ondansetron, oxyCODONE OR oxyCODONE, promethazine OR [DISCONTINUED] promethazine OR [DISCONTINUED] promethazine, simethicone, sodium chloride Physical Exam: GENERAL: Well developed, well nourished. No acute distress. RESP/CHEST: Clear to auscultation bilaterally with symmetric expansion; non labored. Sternum stable, sternotomy as noted below. CARD: RRR. S1S2. No murmur, rub, or gallop. No JVD. No lower extremity edema. Pedal pulses palpable+2. Extremities: No cyanosis or clubbing. GI: Soft, nontender, nondistended. Quiet this morning SKIN: No rash, sores, lesions or subcutaneous nodules. Midsternal incision healing well, edges wellapproximated. EVH site CDI. Wound vac to midline abdominal incision. LENA to left abdomen. Colostomy with ostomy bag in place. Left upper abdomen IR placed drain remains intact. LUE PICC dressing CDI. NEURO: AAOx4. Motor intact and no focal deficits PSYCH: Mood and affect congruent and appropriate to situation. Assessment and Plan: Ms. Rere Hunter is a 53 year old with PMH significant for anxiety, depression, COPD, and tobacco abuse. She initially presented to [facility]. She ruled in for NSTEMI and underwent cardiac catheterization. She was found to have multivessel CAD with critical left main stenosis. She was transferred to for surgical revascularization evaluation. She is now s/p CABG x 4 on 05/06. Postoperative course complicated by ileus s/p exploratory lap, extended left colectomy and end colostomy creation on 05/23 for colonic perforation. This was followed by US guided drain placement by IR on 06/04 for fluid collection in the abdomen (perisplenic). Multivessel CAD (POA) NSTEMI on presentation S/p CABG x 4 on 05/06 - Patient presented to OSH on 05/01/24 with chest pain where tropon levels were 0.05 > 0.23 > 0.16 & LHC reveal mvCAD - Coronary artery bypass grafting x4 with CHOWDARY to LAD as a free graft, reverse saphenous vein graftsequential to ramus intermedius artery then to obtuse marginal artery 1, reverse saphenous vein graft to PDA. Greater saphenous vein vessel harvest of left and right side with endoscopic technique - Continue asa, statin, metoprolol - Routine post cardiac surgery care: Sternal precautions x 6 weeks, PT, bowel regimen to prevent constipation and aggressive pulmonary toilet. Ileus (resolved) Gastric Perforation VS Colonic Perforation Perisplenic Fluid Collection S/p ex lap with left colon resection with end colostomy creation with blue surgery on 05/23/2024 - 06/01: CT abd per Blue surgery giving increasing WBC - 06/02: CT yd with fluid collection consistent with abscess. Started on zosyn yd evening. IR consulted for fluid drainage. Plan for IR procedure on Tuesday - 06/04: S/p Acordian drain placement with IR this AM. Fluid cx pending. Continue zosyn. Blue surg recs: continue zosyn at least 4 days s/p IR drain placement (through 06/08-completed) or change abx based on culture data. - 06/08: Seen by surgery in evening, both drains remain, monitoring output, strip LENA drain BID - 06/13: Both drains remain, continue to monitor Leukocytosis (POA) Abdominal Fluid Collection - possible reactive secondary to MS - WBC 12.8, afebrile - continue to monitor - 05/31: WBC 26.51 - 06/01: WBC 33.03. CT abd per blue surgery - 06/02: WBC 33.90. CT yd with fluid collection. Started on zosyn yd evening. IR consulted for fluiddrainage. - 06/03: WBC 20.40. Plan for IR procedure tomorrow - 06/04: WBC 22.10. S/p Drain placement his AM. Fluid cx pending. Continue zosyn. Blue surg recs: continue zosyn at least 4 days s/p IR drain placement or change abx based on culture data. - 06/05: C/O intense ABD pain after eating any food; surgery reassed with recs for no carbonated beverages and encourage mobility, KUB shows gas distribution. WBC count 19.81 - 06/06: Pain continues after eating. WBC 24.98 - 06/07: Channing count in progress. WBC 16.9 - 06/08: WBC 14.57; 06/09 WBC 12.2 - Afebrile, surgery is following - [place] (two black + bridge) MWF by nursing - Gas pain, ostomy functioning appropriately - Follow SGE LENA output (superior drain in fluid cavity near pancreas) - 06/10: WBC 20.16, afebrile - 06/11: Procalcitonin, add diff to CBC, KUB and CXR - 06/13: WBC 14.79, afebrile - 06/14: WBC 21.2, afebrile, Surgery pulled 1 of 2 drains Acute Blood Loss Anemia - Monitor and transfuse for Hgb < 7 - 06/01: H/H 9.7/29.3 - 06/10: H/H 10.2/32 - 06/12: 9.3/29.4 - 06/13: H/H 9.8/30.5 Hypocalcemia (POA) - monitor and replace prn Hypomagnesemia - replace Hyponatremia - fluid restriction Thrombocytosis - platelets 478 - continue to monitor - 06/13: platelets 409 Transaminitis - ALT 122, AST 80, alkphos 258, Tbili 0.3 - improved - 06/13: ALT 99, AST 52, alk phos 212, Tbili 0.3 Prolonged QT (POA) Sinus tachycardia Incomplete RBBB - continue to monitor rhythm Acute postoperative pain - Abdominal tenderness and pain - MMPC Total Parenteral Nutrition (TPN) (discontinued) - Started on 05/20 - 05/31: Calorie count completed and demonstrated pt was only meeting 12-13% of calorie requirements. Repeat calorie count in progress, to end today 06/07 - Continue TPN until current bag is empty 06/09, then trial discontinuing it - Start marinol - Promote PO intake Anxiety (POA) Depression (POA) - Continue home bupropion and citalopram - Vistaril prn COPD (POA) - Duo nebs prn GERD (POA) - 05/07 extubated, not on home PPI, dc'd - 05/08 pt denies any GERD symptoms - 05/09 + PPI for reflux - 05/10 docusate, metoclopramide, miralax, senna, simethicone, continue NG to low intermitted, CLD for pt comfort, passing gas - 05/11 as above denies reflux today NG clamp trial - 05/14 PPI per blue surgery rec for blood tinged NG output - NG now removed Hyperlipidemia (POA) Hypertriglyceridemia (POA) Hypoalphalipoproteinemia (POA) - 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 Continue metoprolol - continue home primidone Tobacco abuse (POA) - complicates all aspects of care - cessation counseling - NRT prn Overweight (POA) (resolved) Delirium (resolved) Acute hypoxic respiratory failure (resolved) Cardiac Volume Overload (resolved) Hypoglycemia (resolved) Hypokalemia (resolved) Thrombocytopenia (POA) (resolved) Hypernatremia (resolved) Hypermagnesemia (resolved) Hyperphosphatemia (resolved) Hypophosphatemia (resolved) MESHA (resolved) Hyperkalemia (resolved) Pleural effusion (resolved) Low cardiac output syndrome (resolved) Nausea with Vomiting Plan: Continue to encourage po intake. Continue wound vac changes MWF. Nutrition consult for poss tube feeds Replace mag Lactulose for constipation, add daily miralax Addendum: Her nurse contacted me to notify my of a slip and fall while ambulating in the room unassisted. Shereported hit her head. I ordered a head CT. I visited her later and she informs me that she got light headed by standing. She is in no apparent distress. There is a loose dressing on her left forearmthat I didn't not remove to exam covering some minor skin tears. She agrees to call for help from now on. Cardiothoracic Surgery [phone] * Progress Notes - Lester Lazo RN - 06/13/2024 1:03 PM EDT Images from the original note were not included. Ostomy Progress Note Visit Date: 06/13/2024 Patient Name: Rere Hunter Date of : 1970 Education other education. Pt encouraged(and spoke with pt's nurse) to empty her own bag each time, alos to practice cutting and snapping wafer and bag Wound Ostomy Assessment: Colostomy Transverse RUQ (Active) 05/23/24 RUQ Present on Admission: Earliest Known Present: Placed by External Staff?: Inserted by: Bartolome Hand Hygiene Completed: Yes Colostomy Type: Transverse Stoma Size (cm): Earliest Known Removed: Removal Reason : Wound Image 06/13/24 1100 Stomal Appliance 1 piece;2 piece;Flat Barrier/Pouch;Flat Ring;Barrier Clinchco/Wipe 06/13/24 1100 Site Assessment Moist;Niota;Raised 06/13/24 1100 Peristomal Assessment Intact;Clean 06/13/24 1100 Treatment Bag change;Site care 06/13/24 1100 Output (mL) 10 mL 06/12/24 2000 Gastric Output Appearance Loose 06/13/24 1100 Gastric Output Color Brown 06/13/24 1100 Bag changed during wound vac change Lester Lazo RN CWOCN 06/13/2024 1:03 PM * Progress Notes - Lester Lazo RN - 06/13/2024 1:00 PM EDT Images from the original note were not included. Wound Care Consult Visit Date: 06/13/2024 Patient Name: Rere Hunter Date of : 1970 Admit Date: 05/01/2024 Reason for Consult: wound vac Wound History: presents with CAD, multiple vessel s/p Procedure(s) and Anesthesia Type: * CABG, 2 OR MORE VESSELS - General. Wound Assessment: Wound 05/23/24 Surgical Abdomen Upper (Active) Date First Assessed/Time First Assessed: 05/23/24 1419 Hand Hygiene Completed: Yes Primary Wound Type: Surgical Location: Abdomen Wound Location Orientation: Upper Assessments 06/13/2024 11:00 AM Wound Image Wound Assessment Red;Granulation Margins Well-defined edges Jacey-Wound Assessment Intact Closure Milton (in the center of wound) Drainage Description Serosanguineous Drainage Amount Scant Treatments Cleansed;Saline Dressing Vacuum dressing;Silver dressing;Hydrofiber Dressing Changed Changed Dressing Status Intact Active Orders Date Order Priority Status Authorizing Provider 06/13/24 1251 Wound VAC Dressing Changes (Non-Instillation) Upper Abdomen Surgical Routine Active Maite Austin MD - Who is to perform dressing change:: Nursing Staff - Pressure Settings:: Continuous - mmHg:: 125 mmHg 05/31/24 1255 Wound VAC Dressing Changes (Non-Instillation) Upper Abdomen Surgical Routine Active Maite Austin MD - Who is to perform dressing change:: Nursing Staff - Pressure Settings:: Continuous - mmHg:: 125 mmHg Wound Team Summary Assessment: pt seen for wound vac dressing change, assessment revealed proximal incision contracted in well and can switch to aquacel AG and allevyn dressing, distal portion of incision closing in well also 1 black foam applied with good seal @ 125. Sheridan remain in the center portion. Wound Team Plan: Wound care will follow up at regular intervals while inpatient; bedside nursing tofollow wound care recommendations as ordered and please re- consult sooner for new changes or concerns prior to follow up. Lester Lazo RN CWOCN 06/13/2024 1:00 PM * Progress Notes - Teena Jessica - 06/13/2024 11:06 AM EDT Music Therapy Note Session Information: Missed Opportunity: Yes Missed Opportunity Reason: Patient unavailable Subjective: Treatment Goals & Interventions: Communications: Cognitive Responses: Physiological Responses: Heart Rate: Oxygen Saturation: Respiration Rate: Movement/Motor: Behavioral Observations: Musical Responses: Comments: Comments: Pt was receiving bedside care. Length of Visit: Plan of Care: Plan of Care: Will return at another time * Progress Notes - Trinity Yousif, ARASH - 06/13/2024 10:57 AM EDT CVT Progress Note 24 Hour Events/HPI: Resting quietly in bed. No complaints during morning rounds. Denies CP and SOA.No acute events overnight. Afebrile and hemodynamically stable. States she has been eating but it has not been being recorded. Ate well for breakfast, continue to monitor. Review of Systems: A complete ROS was obtained. All were negative except as noted in HPI. Objective: All laboratory data, images, tracings, and vital sign data for past 24 hours are personally reviewed unless otherwise noted. All images personally reviewed and I agree with the radiology interpretation @PATIENTWT@ , Weight: 61.1 kg (134 lb 12.8 oz) , Ht Readings from Last 1 Encounters: 06/11/24 1.549 m (5' 0.98 ) , Body mass index is 22.51 kg/m??. VITALS (last 24h) Temp: [36.5 ??C (97.7 ??F)-36.9 ??C (98.5 ??F)] 36.9 ??C (98.5 ??F) Heart Rate: [83-103] 96 Resp: [16-19] 19 BP: (102-111)/(61-78) 111/66 Visit Vitals BP 111/66 (BP Location: Right arm, Patient Position: Lying) Pulse 96 Temp 36.9 ??C (98.5 ??F) (Oral) Resp 19 Ht 1.549 m (5' 0.98 ) Wt 54 kg (119 lb 0.8 oz) SpO2 95% BMI 22.51 kg/m?? Smoking Status Every Day BSA 1.52 m?? I & O Summary Intake/Output Summary (Last 24 hours) at 06/13/2024 1057 Last data filed at 06/13/2024 0400 Gross per 24 hour Intake 240 ml Output 2010 ml Net -1770 ml LABS CBC WBC 14.79 (H) Hb 9.8 (L) Plt 409 (H) Hct 30.5 (L) ANC ?? INR ??, PTT ??, Anti-Xa ?? BMP Na 131 (L) Cl 96 (L) BUN 6 (L) Glu 106 (H) K 4.0 Co2 25 Cr 0.54 (L) Ca 8.0 (L) iCa ?? Mg ??, Phos ?? Lactate ?? LFT AST 52 (H) AlkPhos 212 (H) T Prot 6.5 ALK 99 (H) Bili 0.3 Alb ?? D.Bili ?? HOURS) MEDICATIONS acetaminophen, 500 mg, Oral, q6h LINDA aspirin, 81 mg, Oral, Daily buPROPion XL, 300 mg, Oral, Daily citalopram, 40 mg, Oral, Daily dronabinol, 2.5 mg, Oral, BID AC enoxaparin, 40 mg, Subcutaneous, Daily lidocaine, 2 patch, Apply externally, q24h melatonin, 6 mg, Oral, Nightly methocarbamol, 500 mg, Oral, TID metoprolol tartrate, 25 mg, Oral, BID pantoprazole, 40 mg, Oral, Daily primidone, 50 mg, Oral, BID rosuvastatin, 40 mg, Oral, Nightly sodium chloride, 10 mL, Intravenous, q12h sodium chloride, 10 mL, Intravenous, q12h PRN medications: benzocaine-menthol, calcium carbonate, HYDROmorphone OR HYDROmorphone, hydrOXYzine pamoate, ipratropium-albuterol, moisturizing mouth, [DISCONTINUED] ondansetron ODT OR ondansetron OR [DISCONTINUED] ondansetron, oxyCODONE OR oxyCODONE, promethazine OR [DISCONTINUED] promethazine OR [DISCONTINUED] promethazine, simethicone, sodium chloride Physical Exam: GENERAL: Well developed, well nourished. No acute distress. RESP/CHEST: Clear to auscultation bilaterally with symmetric expansion; non labored. Sternum stable, sternotomy as noted below. CARD: RRR. S1S2. No murmur, rub, or gallop. No JVD. No lower extremity edema. Pedal pulses palpable+2. Extremities: No cyanosis or clubbing. GI: Soft, nontender, nondistended. Quiet this morning SKIN: No rash, sores, lesions or subcutaneous nodules. Midsternal incision healing well, edges wellapproximated. EVH site CDI. Wound vac to midline abdominal incision. LENA to left abdomen. Colostomy with ostomy bag in place. Left upper abdomen IR placed drain remains intact. LUE PICC dressing CDI. NEURO: AAOx4. Motor intact and no focal deficits PSYCH: Mood and affect congruent and appropriate to situation. Assessment and Plan: Ms. Rere Hunter is a 53 year old with PMH significant for anxiety, depression, COPD, and tobacco abuse. She initially presented to [facility]. She ruled in for NSTEMI and underwent cardiac catheterization. She was found to have multivessel CAD with critical left main stenosis. She was transferred to for surgical revascularization evaluation. She is now s/p CABG x 4 on 05/06. Postoperative course complicated by ileus s/p exploratory lap, extended left colectomy and end colostomy creation on 05/23 for colonic perforation. This was followed by US guided drain placement by IR on 06/04 for fluid collection in the abdomen (perisplenic). Multivessel CAD (POA) NSTEMI on presentation S/p CABG x 4 on 05/06 - Patient presented to OSH on 05/01/24 with chest pain where tropon levels were 0.05 > 0.23 > 0.16 & LHC reveal mvCAD - Coronary artery bypass grafting x4 with CHOWDARY to LAD as a free graft, reverse saphenous vein graftsequential to ramus intermedius artery then to obtuse marginal artery 1, reverse saphenous vein graft to PDA. Greater saphenous vein vessel harvest of left and right side with endoscopic technique - Continue asa, statin, metoprolol - Routine post cardiac surgery care: Sternal precautions x 6 weeks, PT, bowel regimen to prevent constipation and aggressive pulmonary toilet. Ileus (resolved) Gastric Perforation VS Colonic Perforation Perisplenic Fluid Collection S/p ex lap with left colon resection with end colostomy creation with blue surgery on 05/23/2024 - 06/01: CT abd per Blue surgery giving increasing WBC - 06/02: CT yd with fluid collection consistent with abscess. Started on zosyn yd evening. IR consulted for fluid drainage. Plan for IR procedure on Tuesday - 06/04: S/p Acordian drain placement with IR this AM. Fluid cx pending. Continue zosyn. Blue surg recs: continue zosyn at least 4 days s/p IR drain placement (through 06/08-completed) or change abx based on culture data. - 06/08: Seen by surgery in evening, both drains remain, monitoring output, strip LENA drain BID - 06/13: Both drains remain, continue to monitor Leukocytosis (POA) Abdominal Fluid Collection - possible reactive secondary to MS - WBC 12.8, afebrile - continue to monitor - 05/31: WBC 26.51 - 06/01: WBC 33.03. CT abd per blue surgery - 06/02: WBC 33.90. CT yd with fluid collection. Started on zosyn yd evening. IR consulted for fluiddrainage. - 06/03: WBC 20.40. Plan for IR procedure tomorrow - 06/04: WBC 22.10. S/p Drain placement his AM. Fluid cx pending. Continue zosyn. Blue surg recs: continue zosyn at least 4 days s/p IR drain placement or change abx based on culture data. - 06/05: C/O intense ABD pain after eating any food; surgery reassed with recs for no carbonated beverages and encourage mobility, KUB shows gas distribution. WBC count 19.81 - 06/06: Pain continues after eating. WBC 24.98 - 06/07: Channing count in progress. WBC 16.9 - 06/08: WBC 14.57; 06/09 WBC 12.2 - Afebrile, surgery is following - [place] (two black + bridge) MWF by nursing - Gas pain, ostomy functioning appropriately - Follow SGE LENA output (superior drain in fluid cavity near pancreas) - 06/10: WBC 20.16, afebrile - 06/11: Procalcitonin, add diff to CBC, KUB and CXR - 06/13: WBC 14.79, afebrile Acute Blood Loss Anemia - Monitor and transfuse for Hgb < 7 - 06/01: H/H 9.7/29.3 - 06/10: H/H 10.2/32 - 06/12: 9.3/29.4 - 06/13: H/H 9.8/30.5 Hypocalcemia (POA) - monitor and replace prn Hyponatremia - fluid restriction Thrombocytosis - platelets 478 - continue to monitor - 06/13: platelets 409 Transaminitis - ALT 122, AST 80, alkphos 258, Tbili 0.3 - improved - 06/13: ALT 99, AST 52, alk phos 212, Tbili 0.3 Prolonged QT (POA) Sinus tachycardia Incomplete RBBB - continue to monitor rhythm Acute postoperative pain - Abdominal tenderness and pain - MMPC On Total Parenteral Nutrition (TPN) - Started on 05/20 - 05/31: Calorie count completed and demonstrated pt was only meeting 12-13% of calorie requirements. Repeat calorie count in progress, to end today 06/07 - Continue TPN until current bag is empty 06/09, then trial discontinuing it - Start marinol - Promote PO intake Anxiety (POA) Depression (POA) - Continue home bupropion and citalopram - Vistaril prn COPD (POA) - Duo nebs prn GERD (POA) - 05/07 extubated, not on home PPI, dc'd - 05/08 pt denies any GERD symptoms - 05/09 + PPI for reflux - 05/10 docusate, metoclopramide, miralax, senna, simethicone, continue NG to low intermitted, CLD for pt comfort, passing gas - 05/11 as above denies reflux today NG clamp trial - 05/14 PPI per blue surgery rec for blood tinged NG output - NG now removed Hyperlipidemia (POA) Hypertriglyceridemia (POA) Hypoalphalipoproteinemia (POA) - 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 Continue metoprolol - continue home primidone Tobacco abuse (POA) - complicates all aspects of care - cessation counseling - NRT prn Overweight (POA) (resolved) Delirium (resolved) Acute hypoxic respiratory failure (resolved) Cardiac Volume Overload (resolved) Hypoglycemia (resolved) Hypokalemia (resolved) Thrombocytopenia (POA) (resolved) Hypernatremia (resolved) Hypermagnesemia (resolved) Hyperphosphatemia (resolved) Hypophosphatemia (resolved) Hypomagnesemia (resolved) MESHA (resolved) Hyperkalemia (resolved) Pleural effusion (resolved) Low cardiac output syndrome (resolved) Nausea with Vomiting Plan: Continue to encourage po intake. If continues to not eat > 50% of meals, will need DHT placed for nightly feedings. Continue wound vac changes MWF. Cardiothoracic Surgery [phone] * Care Plan - Alessandra Keene RN - 06/12/2024 5:41 PM EDT Problem: Adult Inpatient Plan of Care Goal: Plan of Care Review Outcome: Ongoing, Progressing Flowsheets (Taken 05/31/2024 0000 by Donald Acharya RN) Progress: improving Plan of Care Reviewed With: patient Goal: Patient-Specific Goal (Individualized) Outcome: Ongoing, Progressing Flowsheets (Taken 06/12/2024 0800) Patient/Family-Specific Goals (Include Timeframe): pt will remain free from falls for the duration of the shift. Individualized Care Needs: safety Anxieties, Fears or Concerns: none expressed Goal: Absence of Hospital-Acquired Illness or Injury Outcome: Ongoing, Progressing Intervention: Identify and Manage Fall Risk Flowsheets (Taken 06/12/2024 0800) Safety Promotion/Fall Prevention: activity supervised assistive device/personal items within reach clutter-free environment maintained fall prevention program maintained lighting adjusted mobility aid in reach nonskid shoes/slippers when out of bed room organization consistent safety round/check completed Intervention: Prevent Skin Injury Flowsheets Taken 06/12/2024 0800 by Alessandra Keene RN Body Position: weight shifting Taken 06/07/20240 by Ashwin Odom RN Skin Protection: incontinence pads utilized Intervention: Prevent and Manage VTE (Venous Thromboembolism) Risk Flowsheets (Taken 06/12/2024 0800) VTE Prevention/Management: SCDs (sequential compression devices) off bilateral Intervention: Prevent Infection Flowsheets (Taken 06/01/2024 1146) Infection Prevention: single patient room provided rest/sleep promoted environmental surveillance performed equipment surfaces disinfected visitors restricted/screened hand hygiene promoted personal protective equipment utilized Goal: Optimal Comfort and Wellbeing Outcome: Ongoing, Progressing Intervention: Monitor Pain and Promote Comfort Flowsheets (Taken 06/10/2024 1348 by Valentine Roa RN) Pain Management Interventions: medication (see MAR) position adjusted Intervention: Provide Person-Centered Care Flowsheets (Taken 06/01/2024 1146) Trust Relationship/Rapport: choices provided care explained reassurance provided thoughts/feelings acknowledged emotional support provided empathic listening provided questions answered questions encouraged Goal: Readiness for Transition of Care Outcome: Ongoing, Progressing Problem: Infection Goal: Absence of Infection Signs and Symptoms Outcome: Ongoing, Progressing Problem: Self-Care Deficit Goal: Improved Ability to Complete Activities of Daily Living Outcome: Ongoing, Progressing Problem: Oral Intake Inadequate Goal: Improved Oral Intake Outcome: Ongoing, Progressing * Progress Notes - Fariha Sands - 06/12/2024 11:26 AM EDT Physical Therapy Treatment Patient Name: Rere Hunter Today's Date: 06/12/2024 PT Discharge Recommendations: Home with assistance, Home health PT, Home health OT Equipment Recommended: Rollator Subjective I am feeling better. Pt and RN agreeable to PT treatment session this date. Participants in Care Family/Caregiver Present: No Family/Caregiver: Other (Specify) (Friend) Tester Equipment: Not Applicable Presentation Oxygen Therapy: None (Room air) Lines and Tubes: Telemetry Closed/Suction Drain 1 Left Abdomen Bulb 19 Fr. (Active) Closed/Suction Drain 3 Left LUQ Accordion 8 Fr. (Active) Colostomy Transverse RUQ (Active) PICC Double Lumen 05/19/24 Left Basilic vein (Active) Negative Pressure Wound Therapy Abdomen Lower;Upper;Mid (Active) Pre-Session: Supine, Head of bed elevated, Lines intact Pre-Session Comments: RN agreeable to session. Post-Session: Sitting in chair, Lines intact, RN notified, Call light in reach Post-Session Comments: All needs met. Precautions Medical Precautions: Fall precautions, Sternal Objective Pain Pt does not endorse any pain this date. Pt positioned for comfort following session with pillows for UE support. RN notified. Delirium Screening Urban Agitation Sedation Scale (RASS): Alert and calm Confusion Assessment Method-ICU (CAM-ICU/PCAM-ICU) Feature 3: Altered Level of Consciousness: Negative Bed Mobility Bed Mobility Exam: Rolling/Turning Level of Harmon: Maximum assist (25% patient effort) Physical/Nonphysical Assist: Verbal Cues, Nonverbal cues (demo/gestures), Additional assist utilized for safety, Moderate cues Bed Mobility Exam: Scooting/Bridging Level of Harmon: Minimum assist (75% patient's effort) Physical/Nonphysical Assist: Verbal Cues, Nonverbal cues (demo/gestures) Assistive Device: (drawsheet) Bed Mobility Exam: Supine to Sit Level of Harmon: Moderate assist (50% patient's effort) Physical/Nonphysical Assist: Verbal Cues, Set-up required, HOB elevated Transfers Transfer Exam: Sit to stand Level of Harmon: Stand-by assist Physical/Nonphysical Assist: Verbal Cues, Set-up required Assistive Device: Rollator Transfer Exam: Stand to Sit Level of Harmon: Stand-by assist Physical/Nonphysical Assist: Verbal Cues, Set-up required Assistive Device: Rollator Ambulation Device: Rollator Apparatus: None Assistance: Standby assist Distance : 640 ft Ambulation Comments: Pt with increased gait speed this date with adequate management of rollator. Pt continued to demonstrate shuffling gait with no LOB. Therapeutic Activity (30 minutes) See above sections for task specific interventions: bed mobility, transfers, and ambulation. Pt requires cueing for sequencing/safety with transfers. Pt re- educated on log rolling technique for bed mobility and demonstrated good carryover this date. Pt requires increased time in sitting on EOB to acclimate to upright position. Pt denies dizziness with positional changes. Pt required moderate cueing for bed mobility with assist at trunk to achieve upright static sitting. Pt required reminders about proper locking/unlocking of breaks to safely stand with rollator this sate. Pt educated about the benefits of rollator for community ambulation for energy conservation and to provide a place to take rest breaks when needed. Pt has good safety awareness and is reliable to take rest breaks withoutbeing prompted before she becomes too fatigued. Pt required cueing for upright posture and increased step length throughout ambulation. Pt left in chair to promote pulmonary hygiene and tolerance to upright position. Assessment Pt demo's good strength and balance this date. Pt walked the longest distance she has walked since being in the hospital demonstrating improve activity tolerance and overall endurance. Pt does not require physical assistance for transfers/ambulation. VSS. Pt is a fall risk. Pt will continue to benefit from skilled PT services to decrease fall risk, progress towards independence with functional mobility, and to promote safe return to home upon d/c when appropriate. PT services recommended to optimize potential level of function. Pt is off TPN and continues to slowly adapt to eating by mouth again. Pt is safe to return home with assistance at this time. Pt given time to ask questions or express concerns about home set-up thisdate. Pt states she is nervous, yet excited to go home. She will have family to assist her at home. PT Recommendations Discharge Destination: Home with assistance, Home health PT, Home health OT Discharge Equipment: Rollator Plan Continue per PT POC. PT Goals PT GOAL DETAILS Goal Established Date Time Frame Goal Status PT Goal 1: Pt will perform supine<>sit transfers with CGA and HOB flat, no use of bed rails. 05/07/24 2 weeks Goal ongoing PT Goal 2: Pt will perform sit to stand and bed to chair transfers with Stefan and LRD. 05/07/24 2 weeks Goal ongoing PT Goal 3: Pt will ambulate >600ft with Stefan and LRD. 05/07/24 2 weeks Goal ongoing PT Goal 4: Pt will safely ascend/descend 3 steps with SBA, one handrail. 05/07/24 2 weeks Goal ongoing Written by Fariha Sands on 06/12/24 at 12:22 PM. Cosigned by Divina Yousif at 06/12/2024 2:04 PM EDT Associated attestation - Divina Yousif - 06/12/2024 2:04 PM EDT As the supervising therapist, I was present during the entire PT evaluation/treatment and have reviewed and agree with this document written by the student physical therapist for this patient on thisdate/time. Divina Yousif PT, DPT * Progress Notes - Keisha Sabillon Caden - 06/12/2024 11:25 AM EDT Occupational Therapy Treatment Patient Name: Rere Hunter Today's Date: 06/12/2024 OT Discharge Recommendations: Home with assistance, Home health PT, Home health OT Equipment Recommended: Rollator Subjective Pt agreeable to participate in session. Participants in Care Family/Caregiver Present: No Family/Caregiver: Adult Son Tester Equipment: Not Applicable Presentation Oxygen Therapy: None (Room air) Lines and Tubes: Telemetry Closed/Suction Drain 1 Left Abdomen Bulb 19 Fr. (Active) Closed/Suction Drain 3 Left LUQ Accordion 8 Fr. (Active) Colostomy Transverse RUQ (Active) PICC Double Lumen 05/19/24 Left Basilic vein (Active) Negative Pressure Wound Therapy Abdomen Lower;Upper;Mid (Active) Pre-Session: Supine, Head of bed elevated, Lines intact Pre-Session Comments: RN agreeable to session. Post-Session: Sitting in chair, Lines intact, RN notified, Call light in reach Post-Session Comments: All needs met. Precautions Medical Precautions: Fall precautions, Sternal Objective Pain Pt denies pain this date. Pt positioned for comfort and pressure relief at close of session. Delirium Screening Urban Agitation Sedation Scale (RASS): Alert and calm Confusion Assessment Method-ICU (CAM-ICU/PCAM-ICU) Feature 3: Altered Level of Consciousness: Negative Cognition Cognition Overall Cognitive Status: Within Functional Limits Arousal/Alertness: Appropriate responses to stimuli Mood/Behavior: Alert Single Step Commands: Consistently Multi-Step Commands: Consistently Method of Communication: Verbal Bed Mobility Bed Mobility Exam: Scooting/Bridging Level of Harmon: Minimum assist (75% patient's effort) Physical/Nonphysical Assist: Verbal Cues, Nonverbal cues (demo/gestures) Assistive Device: Other (drawsheet) Bed Mobility Exam: Supine to Sit Level of Harmon: Moderate assist (50% patient's effort) Physical/Nonphysical Assist: Verbal Cues, Set-up required, HOB elevated Assistive Device: Other (drawsheet) Bed Mobility Exam: Sit to Supine Level of Harmon: Minimum assist (75% patient's effort) Physical/Nonphysical Assist: Nonverbal cues (demo/gestures), Verbal Cues, Additional assist utilized for safety Transfers Transfer Exam: Sit to stand Level of Harmon: Stand-by assist Physical/Nonphysical Assist: Verbal Cues, Set-up required Assistive Device: Rollator Transfer Exam: Stand to Sit Level of Harmon: Stand-by assist Physical/Nonphysical Assist: Verbal Cues, Set-up required Assistive Device: Rollator Toilet Transfer Level of Harmon: Minimum assist (75% patient's effort) Physical/Nonphysical Assist: Set-up required, Verbal Cues Type of Transfer: Ambulation, To toilet Assistive Device: Rollator Functional Mobility Device: Rollator Apparatus: None Assistance: Standby assist Distance : 640 ft Self-Care Interventions Self Care/Home Management (ADLs) Time Entry: 30 Pt benefited from skilled occupational therapy interventions including: Provision of increased time frames to support optimal level of pt participation Task/activity modification with grading as needed to achieve safety while also providing appropriate functional challenge Skilled organization and management of medical lines/tubes to reduce fall risk with mobility aspects of ADLs Environmental set-up to ensure safety and accessibility to all needed areas of treatment space Toileting Toileting Interventions: In preparation for functional demands of toileting, pt completed low surface sit>stand transfers x 2 trials in order to simulate functional toilet transfer. Pt completed trials with standby assist. Health Management Health Management interventions: Therapist facilitated functional bed mobility in preparation for OOB ADL engagement. Pt completed supine>sit with mod assist for trunk control. Pt utilized log roll techniques to aid in independence with bed mobility 2/2 sternal precautions this date. Pt requiring max verbal cues and viusla demo for completion of technique. Increased time, multi-modal cues, envi ronmental set-up, and positioning utilized throughout session to facilitate optimal pt performance in therapeutic tasks. Household/Community Re-entry: Patient challenged to perform functional mobility in hallway to address functional endurance, environmental navigation, and prepare patient for community re-entry and navigate household distances. Pt navigating through doorways, along straight paths, around turns, and around large obstacles with SBA using rollator. Pt requiring 0 rest breaks to navigate a distance of640 feet. Therapist provided minimal verbal cues for postural control, pacing, and weight shifting to improve dynamic balance and safety awareness. Assessment On this date, pt demonstrated functional improvement during OT session, with ability to engage in ADL preparatory routines with SBA-mod, use of assistive devices/adaptive equipment (rollator) and increased time. Pt remains limited by symptoms consistent with decreased activity tolerance. However, pt is demo' ing improved balance and independence for ADL's. With this in mind, OT will continue to follow while hospitalized but pt is currently most appropriate for home with assist, Home Health OT/PT and rollator upon D/C. While pt remains hospitalized, continue OT POC. OT Recommendations Discharge Destination: Home with assistance, Home health PT, Home health OT Discharge Equipment: Rollator Plan Continue with established OT plan of care 2-5x/week to progress towards functional OT goals. Goals OT GOAL DETAILS Goal Established Date Time Frame Goal Status OT Goal 1: Pt will perform functional toilet transfer including entering/exiting bathroom with mod I using DME as needed. 05/07/24 2 weeks Goal not met, Goal ongoing OT Goal 2: Pt will perform three consecutive grooming activities standing at the sink with mod I using DME as needed. 05/07/24 2 weeks Goal not met, Goal ongoing OT Goal 3: Pt will perform three consecutive LB dressing activities in sitting/standing with mod I using DME/AE as needed. 05/07/24 2 weeks Goal not met, Goal ongoing OT Goal 4: Pt will verbalize/demonstrate sternal precautions with 100% accuracy in order to safely participate in her ADL routine. 05/07/24 Goal not met, Goal ongoing Written by Keisha Sabillon on 06/12/24 at 12:30 PM. * Progress Notes - Uriah Ricardo PA - 06/12/2024 7:08 AM EDT CVT Progress Note 24 Hour Events/HPI: PO intake 0% Weak but comfortable Objective: All laboratory data, images, tracings, and vital sign data for past 24 hours are personally reviewed unless otherwise noted. @PATIENTWT@ , Weight: 61.1 kg (134 lb 12.8 oz) , Ht Readings from Last 1 Encounters: 06/11/24 1.549 m (5' 0.98 ) , Body mass index is 22.55 kg/m??. VITALS (last 24h) Temp: [36.4 ??C (97.6 ??F)-36.9 ??C (98.5 ??F)] 36.4 ??C (97.6 ??F) Heart Rate: [83-94] 87 Resp: [16-19] 18 BP: (95-106)/(65-74) 97/74 Visit Vitals BP 97/74 (BP Location: Right arm, Patient Position: Lying) Pulse 87 Temp 36.4 ??C (97.6 ??F) (Oral) Resp 18 Ht 1.549 m (5' 0.98 ) Wt 54.1 kg (119 lb 4.3 oz) SpO2 97% BMI 22.55 kg/m?? Smoking Status Every Day BSA 1.53 m?? I & O Summary Intake/Output Summary (Last 24 hours) at 06/12/2024 0708 Last data filed at 06/12/2024 0600 Gross per 24 hour Intake 240 ml Output 1710 ml Net -1470 ml LABS Results from last 7 days Lab Units 06/12/2432306/10/2442706/09/24 0127 WBC 10*3/uL 10.53* 20.16* 12.12* HEMOGLOBIN g/dL 9.3* 10.2* 9.4* HEMATOCRIT % 29.4* 32.0* 29.9* PLATELETS 10*3/uL 393* 478* 471* Results from last 7 days Lab Units 06/12/2432306/10/2442706/09/24 0127 SODIUM mmol/L 129* 131* 130* POTASSIUM mmol/L 3.8 4.1 4.3 CHLORIDE mmol/L 95* 97 98 CO2 mmol/L BUN mg/dL 12 9 11 CREATININE mg/dL 0.59* 0.53* 0.48* CALCIUM mg/dL 8.1* 8.4* 7.9* BILIRUBIN TOTAL mg/dL 0.3 0.3 -- ALKALINE PHOSPHATASE U/L 229* 258* -- ALT U/L 106* 122* -- AST U/L 58* 80* -- GLUCOSE mg/dL 93 76 116* Results from last 7 days Lab Units 06/10/2442706/09/24 0127 06/08/24 0544 MAGNESIUM mg/dL 1.8* 1.9 1.9 MEDICATIONS acetaminophen, 500 mg, Oral, q6h LINDA aspirin, 81 mg, Oral, Daily buPROPion XL, 300 mg, Oral, Daily citalopram, 40 mg, Oral, Daily dronabinol, 2.5 mg, Oral, BID AC enoxaparin, 40 mg, Subcutaneous, Daily lidocaine, 2 patch, Apply externally, q24h melatonin, 6 mg, Oral, Nightly methocarbamol, 500 mg, Oral, TID metoprolol tartrate, 25 mg, Oral, BID pantoprazole, 40 mg, Oral, Daily potassium chloride, 40 mEq, Oral, Once primidone, 50 mg, Oral, BID rosuvastatin, 40 mg, Oral, Nightly sodium chloride, 10 mL, Intravenous, q12h sodium chloride, 10 mL, Intravenous, q12h PRN medications: benzocaine-menthol, calcium carbonate, HYDROmorphone OR HYDROmorphone, hydrOXYzine pamoate, ipratropium-albuterol, moisturizing mouth, [DISCONTINUED] ondansetron ODT OR ondansetron OR [DISCONTINUED] ondansetron, oxyCODONE OR oxyCODONE, promethazine OR [DISCONTINUED] promethazine OR [DISCONTINUED] promethazine, simethicone, sodium chloride Physical Exam: GENERAL: Well developed, well nourished. No acute distress. RESP/CHEST: Clear to auscultation bilaterally with symmetric expansion; non labored. Sternum stable, sternotomy as noted below. CARD: RRR. S1S2. No murmur, rub, or gallop. No JVD. NO lower extremity edema. Pedal pulses palpable+2. Extremities: No cyanosis or clubbing. GI: Soft, nontender, nondistended. Quiet this morning SKIN: No rash, sores, lesions or subcutaneous nodules. Midsternal incision healing well, edges wellapproximated. EVH site CDI. Wound vac to midline abdominal incision. LENA to left abdomen. Colostomy with ostomy bag in place. Left upper abdomen IR placed drain remains intact. LUE PICC dressing CDI. NEURO: AAOx4. Motor intact and no focal deficits PSYCH: Mood and affect congruent and appropriate to situation. Assessment and Plan: Ms. Rere Hunter is a 53 year old with PMH significant for anxiety, depression, COPD, and tobacco abuse. She initially presented to [facility]. She ruled in for NSTEMI and underwent cardiac catheterization. She was found to have multivessel CAD with critical left main stenosis. She was transferred to for surgical revascularization evaluation. She is now s/p CABG x 4 on 05/06. Postoperative course complicated by ileus s/p exploratory lap, extended left colectomy and end colostomy creation on 05/23 for colonic perforation. This was followed by US guided drain placement by IR on 06/04 for fluid collection in the abdomen (perisplenic). Multivessel CAD (POA) NSTEMI on presentation S/p CABG x 4 on 05/06 - Patient presented to OSH on 05/01/24 with chest pain where tropon levels were 0.05 > 0.23 > 0.16 & LHC reveal mvCAD - Coronary artery bypass grafting x4 with CHOWDARY to LAD as a free graft, reverse saphenous vein graftsequential to ramus intermedius artery then to obtuse marginal artery 1, reverse saphenous vein graft to PDA. Greater saphenous vein vessel harvest of left and right side with endoscopic technique - Continue asa, statin, metoprolol - Routine post cardiac surgery care: Sternal precautions x 6 weeks, PT, bowel regimen to prevent constipation and aggressive pulmonary toilet. Ileus Gastric Perforation VS Colonic Perforation Perisplenic Fluid Collection - S/p ex lap with left colon resection with end colostomy creation with blue surgery on 05/23/2024 - 06/01: CT abd per Blue surgery giving increasing WBC - 06/02: CT yd with fluid collection consistent with abscess. Started on zosyn yd evening. IR consulted for fluid drainage. Plan for IR procedure on Tuesday - 06/04: S/p Acordian drain placement with IR this AM. Fluid cx pending. Continue zosyn. Blue surg recs: continue zosyn at least 4 days s/p IR drain placement (through 06/08-completed) or change abx based on culture data. - 06/08: Seen by surgery in evening, both drains remain, monitoring output, strip LENA drain BID Leukocytosis (POA) Abdominal Fluid Collection - possible reactive secondary to MS - WBC 12.8, afebrile - continue to monitor - 05/31: WBC 26.51 - 06/01: WBC 33.03. CT abd per blue surgery - 06/02: WBC 33.90. CT yd with fluid collection. Started on zosyn yd evening. IR consulted for fluiddrainage. - 06/03: WBC 20.40. Plan for IR procedure tomorrow - 06/04: WBC 22.10. S/p Drain placement his AM. Fluid cx pending. Continue zosyn. Blue surg recs: continue zosyn at least 4 days s/p IR drain placement or change abx based on culture data. - 06/05: C/O intense ABD pain after eating any food; surgery reassed with recs for no carbonated beverages and encourage mobility, KUB shows gas distribution. WBC count 19.81 - 06/06: Pain continues after eating. WBC 24.98 - 06/07: Channing count in progress. WBC 16.9 - 06/08: WBC 14.57; 06/09 WBC 12.2 - Afebrile, surgery is following - [place] (two black + bridge) MWF by nursing - Gas pain, ostomy functioning appropriately - Follow SGE LENA output (superior drain in fluid cavity near pancreas) - 06/10: WBC 20.16, afebrile - 06/11: Procalcitonin, add diff to CBC, KUB and CXR Acute Blood Loss Anemia - Monitor and transfuse for Hgb < 7 - 06/01: H/H 9.7/29.3 - 06/10: H/H 10.2/32 - 06/12: 9.3/29.4 Hypocalcemia (POA) - monitor and replace prn Hyponatremia - fluid restriction Thrombocytosis - platelets 478 - continue to monitor Transaminitis - ALT 122, AST 80, alkphos 258, Tbili 0.3 - improved Prolonged QT (POA) Sinus tachycardia Incomplete RBBB - continue to monitor rhythm Acute postoperative pain - Abdominal tenderness and pain - MMPC On Total Parenteral Nutrition (TPN) - Started on 05/20 - 05/31: Calorie count completed and demonstrated pt was only meeting 12-13% of calorie requirements. Repeat calorie count in progress, to end today 06/07 - Continue TPN until current bag is empty 06/09, then trial discontinuing it - Start marinol - Promote PO intake Anxiety (POA) Depression (POA) - Continue home bupropion and citalopram - Vistaril prn COPD (POA) - Duo nebs prn GERD (POA) - 05/07 extubated, not on home PPI, dc'd - 05/08 pt denies any GERD symptoms - 05/09 + PPI for reflux - 05/10 docusate, metoclopramide, miralax, senna, simethicone, continue NG to low intermitted, CLD for pt comfort, passing gas - 05/11 as above denies reflux today NG clamp trial - 05/14 PPI per blue surgery rec for blood tinged NG output - NG now removed Hyperlipidemia (POA) Hypertriglyceridemia (POA) Hypoalphalipoproteinemia (POA) - 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 Continue metoprolol - continue home primidone Tobacco abuse (POA) - complicates all aspects of care - cessation counseling - NRT prn Overweight (POA) (resolved) Delirium (resolved) Acute hypoxic respiratory failure (resolved) Cardiac Volume Overload (resolved) Hypoglycemia (resolved) Hypokalemia (resolved) Thrombocytopenia (POA) (resolved) Hypernatremia (resolved) Hypermagnesemia (resolved) Hyperphosphatemia (resolved) Hypophosphatemia (resolved) MESHA (resolved) Hyperkalemia (resolved) Pleural effusion (resolved) Low cardiac output syndrome (resolved) Nausea with Vomiting Plan: Encourage po intake. Wound vac changes MWF. If she doesn't eat today may have to restart TPN Cardiothoracic Surgery [phone] * Can Alex - Valentine Roa RN - 06/11/2024 7:01 PM EDT Images from the original note were not included. [id number] Colostomy: Managing Your Nutrition You don?t have to eat a special diet just because you?ve had a colostomy. Most foods, chewed well and eaten slowly, won?t give you problems?unless they did before. But you may need to be more aware of foods that cause gas or odor and foods that make your stool too runny or too hard. Choosing foods Learning which foods cause gas or odor, or make your stool runny or hard, takes a little time. You may want to add foods back to your diet one at a time: ?? Eat only small amounts at first to see how your body reacts. ?? If a food causes a problem, wait and try it again in a few weeks. Once your system adjusts to having a stoma, you may find the food doesn?t give you trouble anymore. Causes of gas and odor Some gas is normal, but constant gas is not. Neither is constant odor from stool. What causes gas or odor can differ from person to person. Gas is often caused by swallowing air. To prevent this, eatslowly. Chew each bite well. Sip fluids, and don?t use a straw. Some foods tend to cause excess gas or odor. If gas or odor is a problem, you may want to eat less of certain foods. Foods that can cause gas include: ?? Beer and other carbonated beverages. ?? Broccoli. ?? [place]ove sprouts. ?? Cabbage. ?? Cauliflower. ?? [place]. ?? Cucumbers. ?? Dried beans. ?? Milk and other dairy products with lactose. ?? Mushrooms. ?? Nuts. ?? Onions. ?? Peas. ?? Sodas. ?? Spicy foods. Foods that can cause odor include: ?? Asparagus. ?? Broccoli. ?? [place]ove sprouts. ?? Cabbage. ?? Cheese. ?? Eggs. ?? Fish. ?? Garlic. ?? Horseradish. ?? Spices, such as coriander, cumin, dill, and fennel. Causes of diarrhea Stool that?s more runny than normal (diarrhea) can be a sign of an illness, such as the flu. Some foods and medicines can also cause runny stool: ?? If your stool is more runny than normal, drink plenty of fluids. This helps replace lost fluids and prevent dehydration. ?? Stay away from foods that can make the stool loose, such as raw fruits and vegetables, garlic, onions, alcohol, spicy foods, and foods that are high in fat or sugar. ?? Lactose-containing dairy products can cause gas and loose stool in some people. Try lactose-freedairy products. They are widely available. ?? Check with your health care provider before you take any medicines for diarrhea. ?? Don't irrigate while you have diarrhea. Preventing constipation Your stool can sometimes be too hard (constipation). Hard stool is often caused by not eating enough fiber or not drinking enough fluids. Stress and some medicines can also cause hard stool: ?? If your stool is hard, eat more high-fiber foods, such as fruits, vegetables, and whole-grain breads and cereals. ?? Drink at least 8 to 12 cups (2 to 3 quarts) of water or juice each day, or as directed by our health care team. Fluids can be hot or cold. ?? Check with your provider before using laxatives or stool softeners. When to call your doctor Contact your health care provider right away if: ?? You have bloating, cramping, nausea, pain, or vomiting. ?? You have a change in your normal bowel habits, such as little or no stool or no passage of gas. ?? Your stool is loose or more runny than normal for more than 5 to 6 hours. ?? Your stool is black or bloody. Call 911 if there is a lot of blood coming from your stoma. ?? The stoma changes size, oozes, or bleeds. Last Reviewed Date: 2024 00:00:00 ?? 2415-7612 [employer]. All rights reserved. This information is not intended as a substitute for professional medical care. Always follow your healthcare professional's instructions. * Consults - Gretchen Brothers RD - 06/11/2024 3:41 PM EDT Adult Nutrition Evaluation Note Rere Hunter 53 y.o. female CSN: [id number] Room/Bed 117/117A Nutrition evaluation type: follow-up Reason for evaluation: Hospital course: 53 y.o. female presents for CABG evaluation. OR on 05/06. 4/: NPO x 5 days d/t ileus. Trial of clamping NGT. SGE is following. Pt has been intermittently confused. 05/18: Patient transferred back to ICU yesterday given worsening abdominal exam, electrolyte abnormalities, and overall care requirements. Having fevers, tachycardia. General surgery and GI acutely involved for worsening bowel exam with CT findings concerning for possible gastric perforation. 05/21: Currently receiving TPN. NGT to suction. 05/29: S/P Exploratory laparotomy, extensive lysis of adhesions, left colectomy(performed by colorectal surgery), end colostomy creation, abdominal washout, application of negative pressure wound VAC therapy to skin and soft tissues on 05/23 d/t colon perforation. Continues on TPN, decreased to half rate. Po diet initiated and advanced on 05/28; calorie count started. 06/07: Pt continues on TPN, with PO diet. New Kcal count in progress. 06/11: Kcal count completed. Off TPN att. Past medical/ surgical history: Medical History[1] Surgical History[2] Social history: Additional comments: Minimal PO intake recently, diet advancing per protocol. 05/11: Pt reports appetite improving, trying to eat. Pt denied n/v/d/c, denied chewing/swallowing difficulty. Pt denied involuntary wt changes. No feeding tube present. 05/31: Nurse providing care at time of visit 06/04: Pt out of room (IR) at time of visit 06/07: Pt reports persistent abd pain with PO intake. AUTOMOTIVE PORTER present encourages pt to move to help relieve gas. Pt denied chewing/swallowing difficulty. UBW ~130# per pt, ~4.6% loss of BW. Pt tries to drink Boost shake, has not had Roque yet. TPN ongoing. Will f/u once kcal count complete. 06/11: Pt reports taste is still diminished att, but appetite is improved, abdominal pain is improved, less gas att. Pt does not like Boost, would like to try magic cup, inquired about other items that she can eat att. Vitals and Basic Assessment: BP: 95/65 Temp: 36.9 ??C (98.5 ??F) Invasive Ventilator Initiated (ETT/Trach Only): Yes Oxygen Therapy: None (Room air) O2 Delivery Method: Nasal cannula with capnography Jaida Coma Scale Score: 15 Shaan Scale Score: 19 Joshua/Cubbin Pressure Risk Score: 45 Most Recent BM Date: 06/03/24 GI Symptoms: Gas Edema: Generalized Colostomy output: 180 [address]ound vac in place Allergies: NKFA Medications: acetaminophen, 500 mg, Oral, q6h LINDA aspirin, 81 mg, Oral, Daily buPROPion, 150 mg, Oral, BID FOLLOWED BY buPROPion XL, 300 mg, Oral, Daily citalopram, 40 mg, Oral, Daily dronabinol, 2.5 mg, Oral, BID AC enoxaparin, 40 mg, Subcutaneous, Daily lidocaine, 2 patch, Apply externally, q24h melatonin, 6 mg, Oral, Nightly methocarbamol, 500 mg, Oral, TID metoprolol tartrate, 25 mg, Oral, BID pantoprazole, 40 mg, Oral, Daily primidone, 50 mg, Oral, BID rosuvastatin, 40 mg, Oral, Nightly Insert peripheral IV, , , Once AND Saline lock IV, , , Once AND sodium chloride, 10 mL, Intravenous, q12h AND [DISCONTINUED] sodium chloride, 10 mL, Intravenous, PRN sodium chloride, 10 mL, Intravenous, q12h PRN medications: benzocaine-menthol, calcium carbonate, HYDROmorphone OR HYDROmorphone, hydrOXYzine pamoate, ipratropium-albuterol, moisturizing mouth, [DISCONTINUED] ondansetron ODT OR ondansetron OR [DISCONTINUED] ondansetron, oxyCODONE OR oxyCODONE, promethazine OR [DISCONTINUED] promethazine OR [DISCONTINUED] promethazine, simethicone, sodium chloride Meds were reviewed: Yes Labs: Lab Results Component Value Date GLUCOSE 76 06/10/2024 CALCIUM 8.4 (L) 06/10/2024 NA 131 (L) 06/10/2024 K 4.1 06/10/2024 CO2 26 06/10/2024 CL 97 06/10/2024 BUN 9 06/10/2024 CREATININE 0.53 (L) 06/10/2024 PHOS 5.8 (H) 06/02/2024 MG 1.8 (L) 06/10/2024 HGBA1C 5.3 05/01/2024 Anthropometrics: Height: 154.9 cm (5' 0.98 ) Weight: 54.4 kg (119 lb 14.9 oz) BMI (Calculated): 22.67 Weight Evaluation: Overweight (BMI 25-29.9) [place] Body Weight (kg): 47.7 Percent [place] Body Weight: 114 Adjusted Body Weight (kg): 50.9 Wt Readings from Last 10 Encounters: 06/11/24 54.4 kg (119 lb 14.9 oz) 06/28/23 59 kg (130 lb) 04/26/23 62.6 kg (138 lb) 01/18/23 61.7 kg (136 lb) Wt last f/u was 56.4 kg; 3.5% change if accurate. Estimated Needs: Kcal/ K-35 Kcal Provided: 4449-8468 Kcal Needs Based On: Current weight Gm Protein/ Kg : 1.5-2 Protein Provided: 81-109 Protein Needs Based On: Current weight Metabolic Cart Study Results: Current Nutrition Intake: Diet Supplements: Boost Very High Calorie, Roque Packet Diet Order: Adult Diet Diet Texture: Regular Adult Carbohydrate Restriction: Consistent CHO 2 (4939-2401 Channing, 80 g/meal) Fat Restriction: Cardiac Other Restrictions: Other (Comment) (GI: Ostomy) Percent Meals Eaten (%): avg 47% x 5 meals Calorie Count Results: 06/08: Calorie count results: 06/04: ~658kcal; 26g protein 06/05: ~65kcal; 3g protein 06/06: ~66kcal; 4g protein 3-day ave (06/04-06/06) = 263kcal; 11g protein. Patient meeting ~14-16%kcal; 10- 13% protein needs. RD to follow. Garrett Ruiz DTR Diet Experience and Nutrition History: Per kcal count, pt meeting minimal of EEN at the time. Since 06/07, PO intake avg in flowsheet is improved r/t last follow up. Diet Education Provided: Will monitor Pertinent home medications: reviewed Gnosticist needs: Nutrition Focused Physical Exam: Physical exam performed on (date): 05/11 Temples (muscles): None Clavicle (muscle): None Shoulder (muscle): None Interosseous (muscle): None Thigh (muscle): None Calf (muscle): Mild Orbital (fat): None Triceps (fat): None Assessment of Malnutrition: Malnutrition Identified: No Nutrition Problem: Increased nutrient needs protein, calories related to s/p CABG/exp lap as evidenced by increased metabolic demands of surgical wound healing. Status of Nutrition Diagnosis: Ongoing Inadequate energy intake related to ileus/possible gastric perforation -> colonic perforation asevidenced by NPO x 7 days -> TPN initiated -> TPN + po diet Status of Nutrition Diagnosis: Improvement Nutrition Interventions and Recommendations: - Continue PO diet as tolerated. - Continue Boost VHC once daily + Roque BID (located in [employer]). -Modifying Boost to magic cup -Document PO intake in flowsheet Nutrition Monitoring and Goals: - Will monitor PO intake, weight, skin, labs, nutrition status - Improved PO intake (progressing) - monitor elytes (ongoing) - monitor ostomy output - Pt will maintain body weight throughout hospital admission (ongoing) - ostomy diet education prior to d/c- completed -f/u NFPE as able Acuity Level: [address], LD [1] Past Medical History: Diagnosis Date Anxiety COPD (chronic obstructive pulmonary disease) (CMS/HCC) 05/01/2024 Continue Duo nebs q6 SPO2 goal >88% Depression GERD (gastroesophageal reflux disease) 05/01/2024 Continue Protonix 40 mg daily Hyperkalemia 05/06/2024 Now resolved, pt with hypokalemia requiring replacement On mechanically assisted ventilation (CMS/HCC) 05/06/2024 Arrived to ICU intubated 05/07 [facility]ated to [facility] 05/08 resolved Tobacco use 05/01/2024 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 Complicates all aspects of care and recovery Tremor 05/01/2024 Continue home primidone 50 mg BID [2] Past Surgical History: Procedure Laterality Date ABDOMINAL ADHESION SURGERY SECTION, CLASSIC CHOLECYSTECTOMY CORONARY ARTERY BYPASS GRAFT 05/06/2024 Coronary artery bypass grafting x4 with CHOWDARY to LAD as a free graft, reverse saphenous vein graft sequential to ramus intermedius artery then to obtuse marginal artery 1, reverse saphenous vein graftto PDA.(Reda) HAND SURGERY Right Tendon repair SHOULDER SURGERY * Care Plan - Valentine Roa RN - 06/11/2024 12:10 PM EDT Problem: Adult Inpatient Plan of Care Goal: Plan of Care Review Outcome: Ongoing, Progressing Goal: Patient-Specific Goal (Individualized) Outcome: Ongoing, Progressing Goal: Absence of Hospital-Acquired Illness or Injury Outcome: Ongoing, Progressing Goal: Optimal Comfort and Wellbeing Outcome: Ongoing, Progressing Goal: Readiness for Transition of Care Outcome: Ongoing, Progressing Problem: Infection Goal: Absence of Infection Signs and Symptoms Outcome: Ongoing, Progressing Problem: Self-Care Deficit Goal: Improved Ability to Complete Activities of Daily Living Outcome: Ongoing, Progressing * Progress Notes - Carmelita Snyder MD - 06/11/2024 9:57 AM EDT 06/11/24 Rere Hunter HPI CONSULT: colon perforation and fluid collection between stomach and colon 53F HTN, HLD, COPD, GERD, tobacco use, and CAD s/p 4v CABG on 05/06 04/09: ex lap, extended L colectomy and end colostomy creation (Bartolome) 06/04: IR-guided drain Interval: VSS. L LENA 5 (20), L accordion 40 (15), RUQ colostomy 1000 (450). LENA still murky. Discussed that most likely will leave the hospital with IR drain in place. Edited by: Carmelita Snyder MD at 06/11/2024 0803 Relevant review of systems was obtained as able and is negative unless stated above in HPI. Vital signs: Vitals: 06/11/24 0755 BP: 106/70 Pulse: 87 Resp: 18 Temp: 36.6 ??C (97.9 ??F) SpO2: 94% Physical Exam Constitutional: General: She is not in acute distress. HENT: Head: Normocephalic. Eyes: Extraocular Movements: Extraocular movements intact. Cardiovascular: Rate and Rhythm: Normal rate. Pulses: Normal pulses. Pulmonary: Effort: Pulmonary effort is normal. No respiratory distress. Abdominal: General: Abdomen is flat. There is no distension. Palpations: Abdomen is soft. Tenderness: There is no abdominal tenderness. Comments: Wv holding suction, LENA with murky output, IR with dark serosang Musculoskeletal: General: Normal range of motion. Cervical back: Normal range of motion. Neurological: Mental Status: She is alert and oriented to person, place, and time. Psychiatric: Behavior: Behavior normal. Intake/Output Summary (Last 24 hours) at 06/11/2024 0957 Last data filed at 06/11/2024 0400 Gross per 24 hour Intake 250 ml Output 1545 ml Net -1295 ml Lines/Drains/Tubes: Patient Lines/Drains/Airways Status Active Airway None Output by Drain (mL) 06/09/24 0700 - 06/09/24 18506/09/24 1900 - 06/10/24 0659 06/10/24 07 - 06/10/24 18506/10/24 1900 - 06/11/24 0659 06/11/24 0700 - 06/11/24 0957 Closed/Suction Drain 1 Left Abdomen Bulb 19 Fr. 15 5 0 5 Closed/Suction Drain 3 Left LUQ Accordion 8 Fr. 0 15 0 40 Labs in last 18 hours: CBC WBC ?? Hb ?? Plt ?? Hct ?? ANC 10.15 (H) INR ??, PTT ??, Anti-Xa ?? MCV ?? BMP Na ?? Cl ?? BUN ?? Glu ?? K ?? Co2 ?? Cr ?? Ca ?? iCa ?? Mg ??, Phos ?? Lactate ?? LFT AST ?? AlkPhos ?? T Prot ?? ALK ?? Bili ?? Alb ?? D.Bili ?? Lab Trends: H/H Results from last 7 days Lab Units 06/10/24 0428 06/09/24 0127 06/08/24 0544 HEMOGLOBIN g/dL 10.2* 9.4* 9.2* HEMATOCRIT % 32.0* 29.9* 28.4* INR Cr Results from last 7 days Lab Units 06/10/24 0428 06/09/24 0127 06/08/24 0544 CREATININE mg/dL 0.53* 0.48* 0.46* Medications reviewed. Vital signs reviewed. Labs reviewed. Radiography reviewed. Assessment and Plan: Medical Problems and Relevant Plans Hospital Problems POA * (Principal) CAD, multiple vessel Yes Overview Addendum 05/23/2024 8:44 AM by Marybel Suarez, AUTOMOTIVE PORTER Patient presented to OSH on 05/01/24 c/o chest pain, LHC reveal mvCAD S/p CABG with Dr. Austin on 05/07 Anxiety and depression Yes Overview Addendum 05/23/2024 8:43 AM by Marybel Suarez, AUTOMOTIVE PORTER Continue home bupropion XL 300 mg daily Continue home citalopram 40 mg daily Continue PRN hydroxyzine 25 mg q6 COPD (chronic obstructive pulmonary disease) ([facility] [place]) Yes Overview Addendum 05/23/2024 8:43 AM by Marybel Suarez, AUTOMOTIVE PORTER Duo nebs q6 Wean O2 for SPO2 goal >88% Tobacco use Yes Overview Signed 05/01/2024 8:37 PM by Marylu Carvajal APRN, DNP 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 Complicates all aspects of care and recovery NSTEMI (non-ST elevated myocardial infarction) ([facility] [place]) Yes Overview Addendum 05/22/2024 11:00 AM by Jose Aburto MD Diagnosed at OSH with elevated troponins of 0.05 to 0.23 to 0.16 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, 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 Repeat troponins pending 05/07 POD 1 4V CABG 05/09 EKG ordered and reviewed no signs of ST changes 05/10 ST 105 05/11 ST 100-105 GERD (gastroesophageal reflux disease) Yes Overview Addendum 05/14/2024 2:06 PM by Cydney Luu MD Continue Protonix 40 mg daily 05/07 extubated, no on home PPI dc'd 05/08 pt denies any GERD symptoms 05/09 + PPI for reflux 05/10 docusate, metoclopramide, miralax, senna, simethicone, continue NG to low intermitted, CLD forpt comfort, passing gas 05/11 as above denies reflux today NG clamp trial 05/14 PPI per blue surgery rec for blood tinged NG output Leukocytosis Yes Overview Addendum 05/23/2024 8:50 AM by aMrybel Suarez, AUTOMOTIVE PORTER Remains febrile with elevated EBC Cultures ordered and pending Thrombocytosis Yes Hypocalcemia Yes Hyperlipidemia Yes Overview Signed 05/23/2024 8:47 AM by Marybel Suarez, AUTOMOTIVE PORTER Restart statin when no longer NPO THOM (obstructive sleep apnea) Yes Overview Addendum 05/23/2024 8:45 AM by Marybel Suarez, AUTOMOTIVE PORTER Refusing home CPAP remains on NC S/P CABG x 4 Not Applicable Overview Addendum 05/23/2024 8:45 AM by Marybel Suarez, 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 Austin Aspirin, statin, beta stacey as clinically appropriate Hypertension Yes Overview Addendum 05/23/2024 8:47 AM by Marybel Suarez, ARASH Metop IV while NPO Restart PO metop when appropriate Acute blood loss anemia (ABLA) No Overview Addendum 05/23/2024 8:43 AM by Marybel Suarez, AUTOMOTIVE PORTER Lab Results Component Value Date HGB 9.0 (L) 05/23/2024 CTM with daily labs Transfuse as indicated Gastric perforation (CMS/HCC) No Overview Addendum 06/11/2024 8:53 AM by Uriah Ricardo PA colonic perforation. S/p ex lap 05/23/24 Post-op pain No Overview Addendum 05/25/2024 10:12 AM by Dave Baird, Abdominal tenderness and pain 11/23 Increase dilaudid IV ketamine Abdominal fluid collection No Hyponatremia No Hypomagnesemia No Transaminitis No Thrombocytopenia (CMS/HCC) Yes Colon perforation (CMS/HCC) No Overview Addendum 06/11/2024 8:52 AM by Uriah Ricardo PA Noted on CT scan 05/23/24 S/p left colectomy and end colostomy 05-23-24 Non-Hospital Problems Essential tremor Sinus tachycardia Incomplete RBBB Tremor Plan: - see MTh - [place] (two black + bridge) MWF by nursing - ostomy functioning appropriately - Follow SGE LENA output (superior drain in abscess cavity near pancreas) - zosyn 4 days after IR drain placement Edited by: Carmelita Snyder MD at 06/11/2024 0957 Carmelita Snyder MD Cosigned by Marylu Walton MD at 06/21/2024 5:14 PM EDT Associated attestation - Marylu Walton MD - 06/21/2024 5:14 PM EDT I saw and evaluated the patient with the resident/fellow. I discussed the case with the resident/fellow and agree with the findings and plan as documented. * Progress Notes - Annika Perez RN - 06/11/2024 9:49 AM EDT Case Management Adult Progress Note Rere Hunter 53 y.o. female CSN: [id number] Admission: 05/01/2024 11:01 PM Primary Problem: CAD, multiple vessel Anticipated Discharge Date: tbd Additional Comments: RN EDWARD reviewed chart and met with primary team to discuss plan of care. Patient is not medically ready for discharge at this time, continue to encourage a PO diet. RN EDWARD will continue to follow. Annika Perez RN * Progress Notes - Uriah Ricardo PA - 06/11/2024 6:48 AM EDT CVT Progress Note 24 Hour Events/HPI: TPN off since Tuesday At 25% of meals yesterday Ostomy output 1000 yesterday Comfortable, no specific c/o Hasn't eaten yet this morning but says she will Ambulating OK Objective: All laboratory data, images, tracings, and vital sign data for past 24 hours are personally reviewed unless otherwise noted. @PATIENTWT@ , Weight: 61.1 kg (134 lb 12.8 oz) , Ht Readings from Last 1 Encounters: 06/07/24 1.549 m (5' 0.98 ) , Body mass index is 22.67 kg/m??. VITALS (last 24h) Temp: [36.6 ??C (97.8 ??F)-37 ??C (98.6 ??F)] 36.9 ??C (98.5 ??F) Heart Rate: [87-109] 91 Resp: [18-20] 19 BP: (100-114)/(63-74) 106/67 Visit Vitals BP 106/67 (BP Location: Right arm, Patient Position: Lying) Pulse 91 Temp 36.9 ??C (98.5 ??F) (Oral) Resp 19 Ht 1.549 m (5' 0.98 ) Wt 54.4 kg (119 lb 14.9 oz) SpO2 96% BMI 22.67 kg/m?? Smoking Status Every Day BSA 1.53 m?? I & O Summary Intake/Output Summary (Last 24 hours) at 06/11/2024 1449 Last data filed at 06/11/2024 0900 Gross per 24 hour Intake -- Output 1495 ml Net -1495 ml LABS Results from last 7 days Lab Units 06/10/2442706/09/2412606/08/24 0544 WBC 10*3/uL 20.16* 12.12* 14.57* HEMOGLOBIN g/dL 10.2* 9.4* 9.2* HEMATOCRIT % 32.0* 29.9* 28.4* PLATELETS 10*3/uL 478* 471* 492* Results from last 7 days Lab Units 06/10/2442706/09/2412606/08/24 0544 SODIUM mmol/L 131* 130* 133* POTASSIUM mmol/L 4.1 4.3 3.5* CHLORIDE mmol/L 97 98 99 CO2 mmol/L BUN mg/dL 9 11 11 CREATININE mg/dL 0.53* 0.48* 0.46* CALCIUM mg/dL 8.4* 7.9* 7.8* BILIRUBIN TOTAL mg/dL 0.3 -- -- ALKALINE PHOSPHATASE U/L 258* -- -- ALT U/L 122* -- -- AST U/L 80* -- -- GLUCOSE mg/dL 76 116* 114* Results from last 7 days Lab Units 06/10/2442706/09/2412606/08/24 0544 MAGNESIUM mg/dL 1.8* 1.9 1.9 MEDICATIONS acetaminophen, 500 mg, Oral, q6h LINDA aspirin, 81 mg, Oral, Daily buPROPion XL, 300 mg, Oral, Daily citalopram, 40 mg, Oral, Daily dronabinol, 2.5 mg, Oral, BID AC enoxaparin, 40 mg, Subcutaneous, Daily lidocaine, 2 patch, Apply externally, q24h melatonin, 6 mg, Oral, Nightly methocarbamol, 500 mg, Oral, TID metoprolol tartrate, 25 mg, Oral, BID pantoprazole, 40 mg, Oral, Daily primidone, 50 mg, Oral, BID rosuvastatin, 40 mg, Oral, Nightly sodium chloride, 10 mL, Intravenous, q12h sodium chloride, 10 mL, Intravenous, q12h PRN medications: benzocaine-menthol, calcium carbonate, HYDROmorphone OR HYDROmorphone, hydrOXYzine pamoate, ipratropium-albuterol, moisturizing mouth, [DISCONTINUED] ondansetron ODT OR ondansetron OR [DISCONTINUED] ondansetron, oxyCODONE OR oxyCODONE, promethazine OR [DISCONTINUED] promethazine OR [DISCONTINUED] promethazine, simethicone, sodium chloride Physical Exam: GENERAL: Well developed, well nourished. No acute distress. RESP/CHEST: Clear to auscultation bilaterally with symmetric expansion; non labored. Sternum stable, sternotomy as noted below. CARD: RRR. S1S2. No murmur, rub, or gallop. No JVD. NO lower extremity edema. Pedal pulses palpable+2. Extremities: No cyanosis or clubbing. GI: Soft, nontender, nondistended. Quiet this morning SKIN: No rash, sores, lesions or subcutaneous nodules. Midsternal incision healing well, edges wellapproximated. EVH site CDI. Wound vac to midline abdominal incision. LENA to left abdomen. Colostomy with ostomy bag in place. Left upper abdomen IR placed drain remains intact. LUE PICC dressing CDI. NEURO: AAOx4. Motor intact and no focal deficits PSYCH: Mood and affect congruent and appropriate to situation. Assessment and Plan: Ms. Rere Hunter is a 53 year old with PMH significant for anxiety, depression, COPD, and tobacco abuse. She initially presented [facility]. She ruled in for NSTEMI and underwent cardiac catheterization. She was found to have multivessel CAD with critical left main stenosis. She was transferred to for surgical revascularization evaluation. She is now s/p CABG x 4 on 05/06. Postoperative course complicated by ileus s/p exploratory lap, extended left colectomy and end colostomy creation on 05/23 for colonic perforation. This was followed by US guided drain placement by IR on 06/04 for fluid collection in the abdomen (perisplenic). Multivessel CAD (POA) NSTEMI on presentation S/p CABG x 4 on 05/06 - Patient presented to OSH on 05/01/24 with chest pain where tropon levels were 0.05 > 0.23 > 0.16 & LHC reveal mvCAD - Coronary artery bypass grafting x4 with CHOWDARY to LAD as a free graft, reverse saphenous vein graftsequential to ramus intermedius artery then to obtuse marginal artery 1, reverse saphenous vein graft to PDA. Greater saphenous vein vessel harvest of left and right side with endoscopic technique - Continue asa, statin, metoprolol - Routine post cardiac surgery care: Sternal precautions x 6 weeks, PT, bowel regimen to prevent constipation and aggressive pulmonary toilet. Ileus Gastric Perforation VS Colonic Perforation Perisplenic Fluid Collection - S/p ex lap with left colon resection with end colostomy creation with blue surgery on 05/23/2024 - 06/01: CT abd per Blue surgery giving increasing WBC - 06/02: CT yd with fluid collection consistent with abscess. Started on zosyn yd evening. IR consulted for fluid drainage. Plan for IR procedure on Tuesday - 06/04: S/p Acordian drain placement with IR this AM. Fluid cx pending. Continue zosyn. Blue surg recs: continue zosyn at least 4 days s/p IR drain placement (through 06/08-completed) or change abx based on culture data. - 06/08: Seen by surgery in evening, both drains remain, monitoring output, strip LENA drain BID Leukocytosis (POA) Abdominal Fluid Collection - possible reactive secondary to MS - WBC 12.8, afebrile - continue to monitor - 05/31: WBC 26.51 - 06/01: WBC 33.03. CT abd per blue surgery - 06/02: WBC 33.90. CT yd with fluid collection. Started on zosyn yd evening. IR consulted for fluiddrainage. - 06/03: WBC 20.40. Plan for IR procedure tomorrow - 06/04: WBC 22.10. S/p Drain placement his AM. Fluid cx pending. Continue zosyn. Blue surg recs: continue zosyn at least 4 days s/p IR drain placement or change abx based on culture data. - 06/05: C/O intense ABD pain after eating any food; surgery reassed with recs for no carbonated beverages and encourage mobility, KUB shows gas distribution. WBC count 19.81 - 06/06: Pain continues after eating. WBC 24.98 - 06/07: Channing count in progress. WBC 16.9 - 06/08: WBC 14.57; 06/09 WBC 12.2 - Afebrile, surgery is following - [place] (two black + bridge) MWF by nursing - Gas pain, ostomy functioning appropriately - Follow SGE LENA output (superior drain in fluid cavity near pancreas) - 06/10: WBC 20.16, afebrile - 06/11: Procalcitonin, add diff to CBC, KUB and CXR Acute Blood Loss Anemia - H/H 10.2/31.0 - 06/01: H/H 9.7/29.3 - H/H currently 9.4/29.9 - Monitor and transfuse for Hgb < 7 - 06/10: H/H 10.2/32 Hypocalcemia (POA) - monitor and replace prn Hyponatremia - fluid restriction Thrombocytosis - platelets 478 - continue to monitor Transaminitis - ALT 122, AST 80, alkphos 258, Tbili 0.3 - improved Prolonged QT (POA) Sinus tachycardia Incomplete RBBB - continue to monitor rhythm Nausea with Vomiting - Prn zofran - Promote po intake Acute postoperative pain - Abdominal tenderness and pain - MMPC On Total Parenteral Nutrition (TPN) - Started on 05/20 - 05/31: Calorie count completed and demonstrated pt was only meeting 12-13% of calorie requirements. Repeat calorie count in progress, to end today 06/07 - Continue TPN until current bag is empty 06/09, then trial discontinuing it - Start marinol - Promote PO intake Anxiety (POA) Depression (POA) - Continue home bupropion and citalopram - Vistaril prn COPD (POA) - Duo nebs prn GERD (POA) - 05/07 extubated, not on home PPI, dc'd - 05/08 pt denies any GERD symptoms - 05/09 + PPI for reflux - 05/10 docusate, metoclopramide, miralax, senna, simethicone, continue NG to low intermitted, CLD for pt comfort, passing gas - 05/11 as above denies reflux today NG clamp trial - 05/14 PPI per blue surgery rec for blood tinged NG output - NG now removed Hyperlipidemia (POA) Hypercholesteremia (POA) Hypertriglyceridemia (POA) Hypoalphalipoproteinemia (POA) - 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 Continue metoprolol - continue home primidone Tobacco abuse (POA) - complicates all aspects of care - cessation counseling - NRT prn Overweight (POA) (resolved) Delirium (resolved) Acute hypoxic respiratory failure (resolved) Cardiac Volume Overload (resolved) Hypoglycemia (resolved) Hypokalemia (resolved) Thrombocytopenia (POA) (resolved) Hypernatremia (resolved) Hypermagnesemia (resolved) Hyperphosphatemia (resolved) Hypophosphatemia (resolved) MESHA (resolved) Hyperkalemia (resolved) Pleural effusion (resolved) Low cardiac output syndrome (resolved) Plan: Encourage po intake. Wound vac changes MWF. - Procalcitonin, add diff to CBC, KUB and CXR Addendum: - CXR looks clear - KUB: non obstructive bowel gas - procalcitonin: 0.1(downtrending) - CBC w Diff: stable Cardiothoracic Surgery [phone] * Care Plan - Jada Hernández RN - 06/11/2024 4:16 AM EDT Problem: Adult Inpatient Plan of Care Goal: Plan of Care Review Outcome: Ongoing, Progressing Goal: Patient-Specific Goal (Individualized) Outcome: Ongoing, Progressing Goal: Absence of Hospital-Acquired Illness or Injury Outcome: Ongoing, Progressing Goal: Optimal Comfort and Wellbeing Outcome: Ongoing, Progressing Goal: Readiness for Transition of Care Outcome: Ongoing, Progressing Problem: Infection Goal: Absence of Infection Signs and Symptoms Outcome: Ongoing, Progressing Problem: Self-Care Deficit Goal: Improved Ability to Complete Activities of Daily Living Outcome: Ongoing, Progressing * Care Plan - Valentine Roa RN - 06/10/2024 4:08 PM EDT Problem: Adult Inpatient Plan of Care Goal: Plan of Care Review Outcome: Ongoing, Progressing Goal: Patient-Specific Goal (Individualized) Outcome: Ongoing, Progressing Goal: Absence of Hospital-Acquired Illness or Injury Outcome: Ongoing, Progressing Goal: Optimal Comfort and Wellbeing Outcome: Ongoing, Progressing Goal: Readiness for Transition of Care Outcome: Ongoing, Progressing Problem: Infection Goal: Absence of Infection Signs and Symptoms Outcome: Ongoing, Progressing Problem: Self-Care Deficit Goal: Improved Ability to Complete Activities of Daily Living Outcome: Ongoing, Progressing * Progress Notes - Trinity Yousif APRN - 06/10/2024 6:42 AM EDT CVT Progress Note 24 Hour Events/HPI: Resting quietly in bed. No complaints during morning rounds. Denies CP and SOA.No acute events overnight. Afebrile and hemodynamically stable. Tolerating po diet and having bowelmovements. Review of Systems: A complete ROS was obtained. All were negative except as noted in HPI. Objective: All laboratory data, images, tracings, and vital sign data for past 24 hours are personally reviewed unless otherwise noted. @PATIENTWT@ , Weight: 61.1 kg (134 lb 12.8 oz) , Ht Readings from Last 1 Encounters: 06/07/24 1.549 m (5' 0.98 ) , Body mass index is 23.38 kg/m??. VITALS (last 24h) Temp: [36.9 ??C (98.4 ??F)-37.2 ??C (99 ??F)] 37.2 ??C (98.9 ??F) Heart Rate: [89-93] 93 Resp: [16-20] 20 BP: (109-130)/(58-79) 116/79 Visit Vitals BP 116/79 (BP Location: Right arm, Patient Position: Lying) Pulse 93 Temp 37.2 ??C (98.9 ??F) (Oral) Resp 20 Ht 1.549 m (5' 0.98 ) Wt 56.1 kg (123 lb 10.9 oz) SpO2 95% BMI 23.38 kg/m?? Smoking Status Every Day BSA 1.55 m?? I & O Summary Intake/Output Summary (Last 24 hours) at 06/10/2024 0642 Last data filed at 06/10/2024 0400 Gross per 24 hour Intake 2201.79 ml Output 3160 ml Net -958.21 ml LABS CBC WBC 20.16 (H) Hb 10.2 (L) Plt 478 (H) Hct 32.0 (L) ANC ?? INR ??, PTT ??, Anti-Xa ?? BMP Na 131 (L) Cl 97 BUN 9 Glu 76 K 4.1 Co2 26 Cr 0.53 (L) Ca 8.4 (L) iCa ?? Mg 1.8 (L), Phos ?? Lactate ?? LFT AST 80 (H) AlkPhos 258 (H) T Prot 6.7 ALK 122 (H) Bili 0.3 Alb ?? D.Bili ?? HOURS) MEDICATIONS acetaminophen, 500 mg, Oral, q6h LINDA aspirin, 81 mg, Oral, Daily buPROPion XL, 300 mg, Oral, Daily citalopram, 40 mg, Oral, Daily dronabinol, 2.5 mg, Oral, BID AC fat emulsion fish/plant based, 250 mL, Intravenous, Every other day heparin (porcine), 5,000 Units, Subcutaneous, q8h lidocaine, 2 patch, Apply externally, q24h magnesium sulfate, 2 g, Intravenous, Once melatonin, 6 mg, Oral, Nightly methocarbamol, 500 mg, Oral, TID metoprolol tartrate, 25 mg, Oral, BID pantoprazole, 40 mg, Oral, Daily potassium chloride, 40 mEq, Oral, Once primidone, 50 mg, Oral, BID rosuvastatin, 40 mg, Oral, Nightly sodium chloride, 10 mL, Intravenous, q12h sodium chloride, 10 mL, Intravenous, q12h PRN medications: benzocaine-menthol, calcium carbonate, HYDROmorphone OR HYDROmorphone, hydrOXYzine pamoate, ipratropium-albuterol, moisturizing mouth, [DISCONTINUED] ondansetron ODT OR ondansetron OR [DISCONTINUED] ondansetron, oxyCODONE OR oxyCODONE, phenol, promethazine OR pro methazine OR promethazine, simethicone, sodium chloride, sodium chloride, Insert peripheral IV AND Saline lock IV AND sodium chloride AND sodium chloride, sodium chloride Physical Exam: GENERAL: Well developed, well nourished. No acute distress. EYES: No scleral icterus or conjunctivitis HENT: Atraumatic, normocephalic, nares patent, mucus membranes moist NECK: Supple, no evidence of bruit bilaterally RESP/CHEST: Clear to auscultation bilaterally with symmetric expansion; non labored. Sternum stable, sternotomy as noted below. CARD: RRR. S1S2. No murmur, rub, or gallop. No JVD. NO lower extremity edema. Pedal pulses palpable+2. Extremities: No cyanosis or clubbing. GI: Soft, nontender, nondistended. BS present and normoactive x 4 quadrants SKIN: No rash, sores, lesions or subcutaneous nodules. Midsternal incision healing well, edges wellapproximated. EVH site CDI. Wound vac to midline abdominal incision. LENA to left abdomen. Colostomy with ostomy bag in place. Left upper abdomen IR placed drain remains intact. LUE PICC dressing CDI. NEURO: AAOx4. Motor intact and no focal deficits PSYCH: Mood and affect congruent and appropriate to situation. Assessment and Plan: Ms. Rere Hunter is a 53 year old with PMH significant for anxiety, depression, COPD, and tobacco abuse. She initially presented to [facility]. She ruled in for NSTEMI and underwent cardiac catheterization. She was found to have multivessel CAD with critical left main stenosis. She was transferred to for surgical revascularization evaluation. She is now s/p CABG x 4 on 05/06. Postoperative course complicated by ileus s/p exploratory lap, extended left colectomy and end colostomy creation on 05/23 for colonic perforation. This was followed by US guided drain placement by IR on 06/04 for fluid collection in the abdomen (perisplenic). Multivessel CAD (POA) NSTEMI on presentation S/p CABG x 4 on 05/06 - Patient presented to OSH on 05/01/24 with chest pain where tropon levels were 0.05 > 0.23 > 0.16 & LHC reveal mvCAD - Coronary artery bypass grafting x4 with CHOWDARY to LAD as a free graft, reverse saphenous vein graftsequential to ramus intermedius artery then to obtuse marginal artery 1, reverse saphenous vein graft to PDA. Greater saphenous vein vessel harvest of left and right side with endoscopic technique - Continue asa, statin, metoprolol - Routine post cardiac surgery care: Sternal precautions x 6 weeks, PT, bowel regimen to prevent constipation and aggressive pulmonary toilet. Ileus Gastric Perforation VS Colonic Perforation Perisplenic Fluid Collection - S/p ex lap with left colon resection with end colostomy creation with blue surgery on 05/23/2024 - 06/01: CT abd per Blue surgery giving increasing WBC - 06/02: CT yd with fluid collection consistent with abscess. Started on zosyn yd evening. IR consulted for fluid drainage. Plan for IR procedure on Tuesday - 06/04: S/p Acordian drain placement with IR this AM. Fluid cx pending. Continue zosyn. Blue surg recs: continue zosyn at least 4 days s/p IR drain placement (through 06/08-completed) or change abx based on culture data. - 06/08: Seen by surgery in evening, both drains remain, monitoring output, strip LENA drain BID Leukocytosis (POA) Abdominal Fluid Collection - possible reactive secondary to MS - WBC 12.8, afebrile - continue to monitor - 05/31: WBC 26.51 - 06/01: WBC 33.03. CT abd per blue surgery - 06/02: WBC 33.90. CT yd with fluid collection. Started on zosyn yd evening. IR consulted for fluiddrainage. - 06/03: WBC 20.40. Plan for IR procedure tomorrow - 06/04: WBC 22.10. S/p Drain placement his AM. Fluid cx pending. Continue zosyn. Blue surg recs: continue zosyn at least 4 days s/p IR drain placement or change abx based on culture data. - 06/05: C/O intense ABD pain after eating any food; surgery reassed with recs for no carbonated beverages and encourage mobility, KUB shows gas distribution. WBC count 19.81 - 06/06: Pain continues after eating. WBC 24.98 - 06/07: [place] count in progress. WBC 16.9 - 06/08: WBC 14.57; 06/09 WBC 12.2 - Afebrile, surgery is following - [place] (two black + bridge) MWF by nursing - Gas pain, ostomy functioning appropriately - Follow SGE LENA output (superior drain in fluid cavity near pancreas) - 06/10: WBC 20.16, afebrile Acute Blood Loss Anemia - H/H 10.2/31.0 - 06/01: H/H 9.7/29.3 - H/H currently 9.4/29.9 - Monitor and transfuse for Hgb < 7 - 06/10: H/H 10.2/32 Hypocalcemia (POA) - monitor and replete prn Hyponatremia - fluid restriction Hypomagnesemia - monitor and replete Thrombocytosis - platelets 478 - continue to monitor Transaminitis - ALT 122, AST 80, alkphos 258, Tbili 0.3 - improved Prolonged QT (POA) Sinus tachycardia Incomplete RBBB - continue to monitor rhythm Nausea with Vomiting - Prn zofran - Promote po intake Acute postoperative pain - Abdominal tenderness and pain - MMPC On Total Parenteral Nutrition (TPN) - Started on 05/20 - 05/31: Calorie count completed and demonstrated pt was only meeting 12-13% of calorie requirements. Repeat calorie count in progress, to end today 06/07 - Continue TPN until current bag is empty 06/09, then trial discontinuing it - Start marinol - Promote PO intake Anxiety (POA) Depression (POA) - Continue home bupropion and citalopram - Vistaril prn COPD (POA) - Duo nebs prn GERD (POA) - 05/07 extubated, not on home PPI, dc'd - 05/08 pt denies any GERD symptoms - 05/09 + PPI for reflux - 05/10 docusate, metoclopramide, miralax, senna, simethicone, continue NG to low intermitted, CLD for pt comfort, passing gas - 05/11 as above denies reflux today NG clamp trial - 05/14 PPI per blue surgery rec for blood tinged NG output - NG now removed Hyperlipidemia (POA) Hypercholesteremia (POA) Hypertriglyceridemia (POA) Hypoalphalipoproteinemia (POA) - 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 Continue metoprolol - continue home primidone Tobacco abuse (POA) - complicates all aspects of care - cessation counseling - NRT prn Overweight (POA) (resolved) Delirium (resolved) Acute hypoxic respiratory failure (resolved) Cardiac Volume Overload (resolved) Hypoglycemia (resolved) Hypokalemia (resolved) Thrombocytopenia (POA) (resolved) Hypernatremia (resolved) Hypermagnesemia (resolved) Hyperphosphatemia (resolved) Hypophosphatemia (resolved) MESHA (resolved) Hyperkalemia (resolved) Pleural effusion (resolved) Low cardiac output syndrome (resolved) Plan: Encourage po intake. Wound vac changes MWF. Mobilize as able. Cardiothoracic Surgery [phone] * Care Plan - Jenifer Reyes RN - 06/09/2024 2:52 PM EDT Problem: Adult Inpatient Plan of Care Goal: Plan of Care Review Outcome: Ongoing, Progressing Goal: Patient-Specific Goal (Individualized) Outcome: Ongoing, Progressing Goal: Absence of Hospital-Acquired Illness or Injury Outcome: Ongoing, Progressing Goal: Optimal Comfort and Wellbeing Outcome: Ongoing, Progressing Goal: Readiness for Transition of Care Outcome: Ongoing, Progressing Problem: Infection Goal: Absence of Infection Signs and Symptoms Outcome: Ongoing, Progressing Problem: Self-Care Deficit Goal: Improved Ability to Complete Activities of Daily Living Outcome: Ongoing, Progressing * Progress Notes - Valentine Mack PharmD - 06/09/2024 12:53 PM EDT Pharmacist TPN Progress Note Patient: Rere Hunter Age: 53 y.o. Admission Date: [id number] Subjective/Objective/Hospital Course: 53 y.o. female with PMHx of CAD, HTN, COPD, GERD, tremor, anxiety, depression, and tobacco use, who is currently hospitalized under the care of the CVT surgery team after having a CABG on 05/06/24. Since surgery she has developed nausea, vomiting, and abdominal pain with imaging findings consistent with ileus. Patient has had inadequate energy intake likely related to ileus and has been NPO x [address] 05/20 showed intraabdominal fluid adjacent to stomach concerning for possible perforation. UGI with no perforartion. TPN consult for ileus + possible leak. -- 05/17: TPN consult placed -- 05/19: TPN initiated -- 05/23: CT overnight with PO contrast more convincing for colonic perforation instead of stomach perf. OR with general surgery for left hemicolectomy and colostomy creation. -- 05/25: CLD ordered late afternoon -- 05/28: PO diet ordered -- 05/29: S/P Exploratory laparotomy, extensive lysis of adhesions, left colectomy(performed by colorectal surgery), end colostomy creation, abdominal washout, application of negative pressure wound VAC therapy to skin and soft tissues on 05/23 d/t colon perforation. -- 05/31: Calorie count results: 3-day ave = ~206kcal; 6g protein. Patient meeting ~12-13%kcal; 8% protein needs. -- 06/02: CT scan showed abscess, made NPO for potential drainage soon -- 06/03: pending IR drain on 06/04, will be NPO prior -- 06/04: CT-guided fluid collection drainage with tube placement, Reg diet, start calorie count -- 06/05: Plan to continue TPN until complete calorie count (~72 hrs from 06/04) -- 06/06: Eating about 25% of meals but with sharp pain - surgery to reassess -- 06/07: New kcal count in progress --06/09: Patient would like to try an appetite stimulant per team, will advance and wean TPN Problem List[1] Medical History[2] Surgical History[3] Allergies: Latex and Oxycodone LABS: Results from last 7 days Lab Units 06/09/24 0127 06/08/24 0544 06/07/24 0622 06/06/24 0403 06/05/24 0612 06/04/24 0556 06/03/24 0108 GLUCOSE mg/dL 116* 114* 124* 406* 125* 105* 117* BUN mg/dL 11 11 13 11 13 12 12 CREATININE mg/dL 0.48* 0.46* 0.44* 0.50* 0.50* 0.53* 0.48* SODIUM mmol/L 130* 133* 133* 130* 133* 133* 130* POTASSIUM mmol/L 4.3 3.5* 3.7 4.3 3.6 3.8 3.3* CHLORIDE mmol/L 98 99 99 98 99 101 98 CO2 mmol/L CALCIUM mg/dL 7.9* 7.8* 7.8* 7.5* 7.7* 7.7* 7.7* MAGNESIUM mg/dL 1.9 1.9 1.9 2.1 2.0 2.1 2.0 Results from last 7 days Lab Units 06/09/24 0127 06/08/24 0544 06/07/24 0622 06/06/24 0403 06/05/24 0612 06/04/24 0556 06/03/24 0108 WBC 10*3/uL 12.12* 14.57* 16.90* 24.98* 19.81* 22.10* 20.40* HEMOGLOBIN g/dL 9.4* 9.2* 9.0* 9.2* 9.3* 9.4* 9.2* HEMATOCRIT % 29.9* 28.4* 28.4* 29.5* 29.0* 29.3* 28.8* PLATELETS 10*3/uL 471* 492* 529* 605* 643* 716* 689* Nutrition Labs: Lab Results Component Value Date TRIG 76 05/19/2024 BILITOT 0.9 05/23/2024 ALBUMIN 2.2 (L) 06/02/2024 PREALBUMIN 16.8 (L) 06/03/2024 HGBA1C 5.3 05/01/2024 CRP 225.3 (H) 05/17/2024 IRON 25 (L) 05/14/2024 TIBC 156 (L) 05/14/2024 Microbiology Results Procedure Component Value Units Date/Time Blood Culture (Aerobic/Anaerobet Set) [[id number]] Collected: 05/23/24 1020 Order Status: Completed Specimen: Blood, Venous Updated: 05/24/24 1101 Culture No growth at day 1 Fungal Blood Culture [[id number]] Collected: 05/17/241812 Order Status: Completed Specimen: Blood, Venous Updated: 05/24/2438 Culture No Fungal Growth at 1 Week AFB Blood Culture [[id number]] Collected: 05/17/241812 Order Status: Completed Specimen: Blood, Venous Updated: 05/24/2438 AFB Culture No Mycobacterial Growth at 1 Week Vitals: Visit Vitals BP 114/73 (BP Location: Right arm, Patient Position: Lying) Pulse 92 Temp 36.9 ??C (98.4 ??F) (Oral) Resp 18 [place] Coma Scale Score: 15 [place] Scale Score: 18 Oxygen Therapy: None (Room air) Skin Integrity: Other (Comment) (SEE LDA.) Edema: Generalized Wt Readings from Last 3 Encounters: 06/09/24 56.1 kg (123 lb 10.9 oz) 06/28/23 59 kg (130 lb) 04/26/23 62.6 kg (138 lb) Current Diet Order: Dietary Orders (From admission, onward) Start Ordered 06/04/24 1147 Adult diet Diet texture: Regular; Carbohydrate restriction: Consistent Carb 2 (80 gm max/meal); Fat restriction: Cardiac; GI: Ostomy Diet effective now Comments: NO SPICY FOODS NO ONIONS References: IDDSI Diet Texture Guide Question Answer Comment Diet texture Regular Carbohydrate restriction: Consistent Carb 2 (80 gm max/meal) Fat restriction: Cardiac GI Ostomy 06/04/24 1147 05/29/24 1449 Oral nutrition supplements (Adult Diet Panel) Until discontinued Question Answer Comment Supplement frequency: Breakfast Supplement frequency: Lunch Supplement frequency: Dinner Breakfast supplement: Roque Fruit Punch Quantity for Breakfast of Roque Fruit Punch Packet One Lunch supplement: Boost Very High Calorie Vanilla Quantity for Lunch of Boost Very High Calorie - Vanilla One Dinner supplement: Roque Fruit Punch Quantity for Dinner of Roque Fruit Punch Packet One 05/29/24 1448 Current Medications acetaminophen, 500 mg, Oral, q6h LINDA aspirin, 81 mg, Oral, Daily buPROPion, 150 mg, Oral, BID FOLLOWED BY buPROPion XL, 300 mg, Oral, Daily citalopram, 40 mg, Oral, Daily fat emulsion fish/plant based, 250 mL, Intravenous, Every other day heparin (porcine), 5,000 Units, Subcutaneous, q8h lidocaine, 2 patch, Apply externally, q24h melatonin, 6 mg, Oral, Nightly methocarbamol, 500 mg, Oral, TID metoprolol tartrate, 25 mg, Oral, BID pantoprazole, 40 mg, Oral, Daily potassium chloride, 40 mEq, Oral, Once FOLLOWED BY [DISCONTINUED] potassium chloride, 20 mEq, Oral, Once primidone, 50 mg, Oral, BID rosuvastatin, 40 mg, Oral, Nightly Insert peripheral IV, , , Once AND Saline lock IV, , , Once AND sodium chloride, 10 mL, Intravenous, q12h AND sodium chloride, 10 mL, Intravenous, PRN sodium chloride, 10 mL, Intravenous, q12h Adult 2-in-1 TPN, 40 mL/hr Current Anthropometrics: Height: 154.9 cm (5' 0.98 ) Weight: 61.1 kg (134 lb 12.8 oz) [place] body weight: 47.8 kg (105 lb 4.8 oz) Adjusted ideal body weight: 52.8 kg (116 lb 5.7 oz) (126.25%) of IBW Body mass index is 25.13 kg/m??. Adjusted wt: 50.9 kg (if over 125% of IBW) CENTRAL IV Access: PICC (05/18/24) Estimated Nutritional Needs: HBE: 1153 Stress Factor: 1.2-1.4 Total Calories/day: 9745-0096 Protein (amino acids): 1.3-1.6 grams/kg Protein (Amino acids): 66-81 grams/day Measured Energy Needs: Respiratory Quotient: 06/09/2024 Plan/Recommendation: Labs reviewed. Will go to 40ml/hr on TPN now and stop at 21:00 this evening. Communicated with bedside nurse as well. GOAL TPN: DEXTROSE: 18% (281 g/day CHO) AMINO ACIDS: 5% (78 g/day - 1.51 g/kg/day Amino acids) Cl:A 1:3, K @ 30 mEq/L, Na @ 90 mEq/L @ 65 ml/hr, with 30mg/day thiamine, MVI, and Trace elements Every other day 250ml 20% SMOF lipids 1517 Total kcal/day - 29.8 kcal/kg/day GUR: 3.83 Replace electrolytes outside of TPN Calcium and/or Phosphorus supplements MUST be in a separate line from the TPN to avoid precipitation Obtain BMP, magnesium, and Phos daily x 3days and then at least twice weekly Obtain LFT and TGLY weekly I have monitored the TPN therapy, including the labs, and have communicated any modifications with the primary medical/surgical team. Continue current TPN formula and lipid regimen as above. I have communicated the TPN plan with the IV room. Thank you, Valentine Mack, PharmD, BCCCP Available via [employer] Secure Chat [1] Patient Active Problem List Diagnosis Anxiety and depression COPD (chronic obstructive pulmonary disease) ([facility]) CAD, multiple vessel NSTEMI (non-ST elevated myocardial infarction) ([facility]) GERD (gastroesophageal reflux disease) Leukocytosis Hyperlipidemia THOM (obstructive sleep apnea) S/P CABG x 4 Hypertension Cardiac volume overload Hypoglycemia Nausea with vomiting Acute blood loss anemia (ABLA) Gastric perforation ([facility] [place]) On total parenteral nutrition (TPN) Ileus ([facility]) Electrolyte abnormality Colon perforation ([facility]) Post-op pain Delirium [2] Past Medical History: Diagnosis Date Anxiety COPD (chronic obstructive pulmonary disease) ([facility]) 05/01/2024 Continue Duo nebs q6 SPO2 goal >88% Depression GERD (gastroesophageal reflux disease) 05/01/2024 Continue Protonix 40 mg daily Hyperkalemia 05/06/2024 Now resolved, pt with hypokalemia requiring replacement On mechanically assisted ventilation (CMS/HCC) 05/06/2024 Arrived to ICU intubated 05/07 extubated to 4LNC 05/08 resolved Tobacco use 05/01/2024 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 Complicates all aspects of care and recovery Tremor 05/01/2024 Continue home primidone 50 mg BID [3] Past Surgical History: Procedure Laterality Date ABDOMINAL ADHESION SURGERY SECTION, CLASSIC CHOLECYSTECTOMY CORONARY ARTERY BYPASS GRAFT 05/06/2024 Coronary artery bypass grafting x4 with CHOWDARY to LAD as a free graft, reverse saphenous vein graft sequential to ramus intermedius artery then to obtuse marginal artery 1, reverse saphenous vein graftto PDA.(Reda) HAND SURGERY Right Tendon repair SHOULDER SURGERY * Progress Notes - Dulce Alamo APRN - 06/09/2024 11:29 AM EDT CVT Progress Note 24 Hour Events/HPI: Patient reports that she tolerated 1/2 of her oatmeal this morning (the first thing she has been able to consume that did not cause intense ABD pain) and is going to try to eat some mac n cheese for lunch. 4 day course of Zosyn s/p IR drain placement was completed last night. Two drains remain (onefrom surgery and one from IR). Hopefully these can be removed soon. Output is decreasing. Will ask pharmacy today about starting an appetite stimulate. Review of Systems: A complete ROS was obtained. All were negative except as noted in HPI. Objective: All laboratory data, images, tracings, and vital sign data for past 24 hours are personally reviewed unless otherwise noted. @PATIENTWT@ , Weight: 61.1 kg (134 lb 12.8 oz) , Ht Readings from Last 1 Encounters: 06/07/24 1.549 m (5' 0.98 ) , Body mass index is 23.38 kg/m??. VITALS (last 24h) Temp: [36.9 ??C (98.4 ??F)-37.1 ??C (98.8 ??F)] 36.9 ??C (98.4 ??F) Heart Rate: [80-92] 92 Resp: [18-19] 18 BP: (102-128)/(69-78) 114/73 Visit Vitals BP 114/73 (BP Location: Right arm, Patient Position: Lying) Pulse 92 Temp 36.9 ??C (98.4 ??F) (Oral) Resp 18 Ht 1.549 m (5' 0.98 ) Wt 56.1 kg (123 lb 10.9 oz) SpO2 98% BMI 23.38 kg/m?? Smoking Status Every Day BSA 1.55 m?? I & O Summary Intake/Output Summary (Last 24 hours) at 06/09/2024 1129 Last data filed at 06/09/2024 0535 Gross per 24 hour Intake 1240 ml Output 2175 ml Net -935 ml LABS CBC WBC 12.12 (H) Hb 9.4 (L) Plt 471 (H) Hct 29.9 (L) BMP Na 130 (L) Cl 98 BUN 11 Glu 116 (H) K 4.3 Co2 26 Cr 0.48 (L) Ca 7.9 (L) Mg 1.9 MEDICATIONS acetaminophen, 500 mg, Oral, q6h LINDA aspirin, 81 mg, Oral, Daily buPROPion XL, 300 mg, Oral, Daily citalopram, 40 mg, Oral, Daily fat emulsion fish/plant based, 250 mL, Intravenous, Every other day heparin (porcine), 5,000 Units, Subcutaneous, q8h lidocaine, 2 patch, Apply externally, q24h melatonin, 6 mg, Oral, Nightly methocarbamol, 500 mg, Oral, TID metoprolol tartrate, 25 mg, Oral, BID pantoprazole, 40 mg, Oral, Daily potassium chloride, 40 mEq, Oral, Once primidone, 50 mg, Oral, BID rosuvastatin, 40 mg, Oral, Nightly sodium chloride, 10 mL, Intravenous, q12h sodium chloride, 10 mL, Intravenous, q12h Adult 2-in-1 TPN, 65 mL/hr, Last Rate: 65 mL/hr (06/08/242044) PRN medications: benzocaine-menthol, calcium carbonate, HYDROmorphone OR HYDROmorphone, hydrOXYzine pamoate, ipratropium-albuterol, moisturizing mouth, [DISCONTINUED] ondansetron ODT OR ondansetron OR [DISCONTINUED] ondansetron, oxyCODONE OR oxyCODONE, phenol, simethicone, sodium chloride, sodium chloride, Insert peripheral IV AND Saline lock IV AND sodium chloride ANDsodium chloride, sodium chloride No echocardiogram results found for the past 14 days Physical Exam: GENERAL: WD, WN, NAD. EYES: No scleral icterus or conjunctivitis HENT: Atraumatic, normocephalic, nares patent, mucus membranes moist NECK: Supple, trachea midline RESP/CHEST: Symmetric expansion; non labored. CTA bilaterally CARD: Regular rate and rhythm, normal S1 and S2, no murmur, rub, or gallop, Pedal pulses palpable, no JVD. No edema. Sternum stable. Sternal incision with edges approx, CDI. CT/mediastinal site(s) with single suture each, intact. EVH site(s) CDI. Extremities: No cyanosis or clubbing. GI: Soft, Nontender, nondistended. BS present x 4 quadrants. SKIN: No rash. Midline ABD incision with wound vac in place. LENA x 1 to left ABD. Colostomy with ostomy bag in place. Left upper ABD IR placed drain (accordion) remains intact. LUE PICC DSG is CDI. NEURO: AAO. Motor intact and no focal deficits PSYCH: Mood and affect congruent and appropriate to situation. Assessment and Plan: Patient is a 53 yo female with a pmh of HTN, HLD, COPD, GERD, tobacco use, and CAD s/p 4v CABG on 05/06 with post op course complicated by ileus s/p exploratory lap, extended left colectomy, and end colostomy creation on 05/23 for colonic perforation, followed by US guided drain placement by IR on 06/04 for fluid collection in the ABD (perislpenic). CAD, Multiple Vessel NSTEMI (Non-ST Elevated Myocardial Infarction) - Patient presented to OSH on 05/01/24 with chest pain where tropon levels were 0.05 > 0.23 > 0.16 & LHC reveal mvCAD - S/p CABG x [address] Austin on 05/06/2024 - Continue asa, statin, metoprolol - Routine post cardiac surgery care: Sternal precautions x 6 weeks, PT, bowel regimen to prevent constipation and aggressive pulmonary toilet. Ileus Gastric Perforation VS Colonic Perforation Perisplenic Fluid Collection - S/p ex lap with left colon resection with end colostomy creation with blue surgery on 05/23/2024 - 06/01: CT abd per Blue surgery giving increasing WBC - 06/02: CT yd with fluid collection consistent with abscess. Started on zosyn yd evening. IR consulted for fluid drainage. Plan for IR procedure on Tuesday - 06/04: S/p Acordian drain placement with IR this AM. Fluid cx pending. Continue zosyn. Blue surg recs: continue zosyn at least 4 days s/p IR drain placement (through 06/08-completed) or change abx based on culture data. - 06/08: Seen by surgery in evening, both drains remain, monitoring output, strip LENA drain BID Leukocytosis Abdominal Fluid Collection - 05/31: WBC 26.51 - 06/01: WBC 33.03. CT abd per blue surgery - 06/02: WBC 33.90. CT yd with fluid collection. Started on zosyn yd evening. IR consulted for fluiddrainage. - 06/03: WBC 20.40. Plan for IR procedure tomorrow - 06/04: WBC 22.10. S/p Drain placement his AM. Fluid cx pending. Continue zosyn. Blue surg recs: continue zosyn at least 4 days s/p IR drain placement or change abx based on culture data. - 06/05: C/O intense ABD pain after eating any food; surgery reassed with recs for no carbonated beverages and encourage mobility, KUB shows gas distribution. WBC count 19.81 - 06/06: Pain continues after eating. WBC 24.98 - 06/07: Channing count in progress. WBC 16.9 - 06/08: WBC 14.57; 06/09 WBC 12.2 - Afebrile, surgery is following - [place] (two black + bridge) MWF by nursing - Gas pain, ostomy functioning appropriately - Follow SGE LENA output (superior drain in fluid cavity near pancreas) - Monitor On Total Parenteral Nutrition (TPN) - Started on 05/20 - 05/31: Calorie count completed and demonstrated pt was only meeting 12-13% of calorie requirements. Repeat calorie count in progress, to end today 06/07 - Continue TPN until current bag is empty 06/09, then trial discontinuing it - Start marinol - Promote PO intake Anxiety and Depression - Continue home bupropion - Continue home citalopram - Vistaril prn COPD (Chronic Obstructive Pulmonary Disease) - Duo nebs prn GERD (Gastroesophageal Reflux Disease) - 05/07 extubated, not on home PPI, dc'd - 05/08 pt denies any GERD symptoms - 05/09 + PPI for reflux - 05/10 docusate, metoclopramide, miralax, senna, simethicone, continue NG to low intermitted, CLD for pt comfort, passing gas - 05/11 as above denies reflux today NG clamp trial - 05/14 PPI per blue surgery rec for blood tinged NG output - NG now removed Hyperlipidemia - Chol 247, trig 271, HDL 36, LDL 160 - Rosuvastatin 40mg po daily THOM (Obstructive Sleep Apnea) - Refusing home CPAP Hypertension - Metoprolol tartrate 25mg po BID Cardiac Volume Overload - Diuresis prn - Resolved Hypoglycemia - Resolved once TPN started Nausea with Vomiting - Prn zofran - Promote po intake Acute Blood Loss Anemia (ABLA) - H/H 10.2/31.0 - 06/01: H/H 9.7/29.3 - H/H currently 9.4/29.9 - Monitor and transfuse prn Electrolyte Abnormality - Monitor and treat Post-op Pain - Abdominal tenderness and pain - MMPC Delirium - Delirium precautions - Resolved Plan: - Encourage PO intake - Repeat calorie count 06/05- 06/07: 3-day ave (06/04-06/06) = 263kcal; 11g protein. Patient meeting ~14-16%kcal; 10-13% protein needs. - Continue TPN - S/p drain placement in IR 06/04; 2 drains remain - Continue zosyn until at least 4 days after drain placed in IR, thru 06/08- completed, continue to monitor WBC count - Follow cultures, no growth to date - Wound Vac changes [facility] Cardiothoracic Surgery [phone] * Care Plan - Cyndie Jackson RN - 06/08/2024 10:55 PM EDT Problem: Adult Inpatient Plan of Care Goal: Plan of Care Review Outcome: Ongoing, Progressing Goal: Patient-Specific Goal (Individualized) Outcome: Ongoing, Progressing Goal: Optimal Comfort and Wellbeing Outcome: Ongoing, Progressing * Progress Notes - Duane Cruz MD - 06/08/2024 6:07 PM EDT Images from the original note were not included. 06/08/24 Rere Hunter HPI CONSULT: colon perforation and fluid collection between stomach and colon 53F HTN, HLD, COPD, GERD, tobacco use, and CAD s/p 4v CABG on 05/06 05/23: ex lap, extended L colectomy and end colostomy creation (Bartolome) 06/04: IR-guided drain Interval: VSS AF on RA. Drain 1 10 (5). LLQ 20 (50), ostomy 200 (155). On TPN and regular diet. Tolerating her diet but without much of an appetite. She reports eating some food. No nausea or vomiting. Calorie count pending. Continues to have bowel function. Edited by: Duane Cruz MD at 06/08/2024 6928 Relevant review of systems was obtained as able and is negative unless stated above in HPI. Vital signs: Vitals: 06/08/24 1110 BP: 108/71 Pulse: 79 Resp: 22 Temp: 36.7 ??C (98 ??F) SpO2: 97% Physical Exam Constitutional: General: She is not in acute distress. Eyes: Extraocular Movements: Extraocular movements intact. Cardiovascular: Rate and Rhythm: Normal rate. Pulmonary: Effort: Pulmonary effort is normal. No respiratory distress. Abdominal: General: Abdomen is flat. Palpations: Abdomen is soft. Tenderness: There is no abdominal tenderness. Comments: LENA with purulent drainage. IR with purulent drainage. Ostomy with output. Wound vac in place over incision. Musculoskeletal: Cervical back: Normal range of motion. Skin: General: Skin is warm. Neurological: Mental Status: She is alert and oriented to person, place, and time. Psychiatric: Behavior: Behavior normal. Intake/Output Summary (Last 24 hours) at 06/08/20241806 Last data filed at 06/08/2024 1507 Gross per 24 hour Intake 2096.43 ml Output 2400 ml Net -303.57 ml Lines/Drains/Tubes: Patient Lines/Drains/Airways Status Active Airway None Output by Drain (mL) 06/06/24 0700 - 06/06/24 18506/06/24 1900 - 06/07/24 0659 06/07/24 07 - 06/07/24185806/07/24 1900 - 06/08/24 0659 06/08/24 07 - 06/08/241806 Closed/Suction Drain 1 Left Abdomen Bulb 19 Fr. 0 5 10 Closed/Suction Drain 3 Left LUQ Accordion 8 Fr. 30 20 20 Labs in last 18 hours: CBC WBC 14.57 (H) Hb 9.2 (L) Plt 492 (H) Hct 28.4 (L) ANC ?? INR ??, PTT ??, Anti-Xa ?? MCV 92 BMP Na 133 (L) Cl 99 BUN 11 Glu 114 (H) K 3.5 (L) Co2 27 Cr 0.46 (L) Ca 7.8 (L) iCa ?? Mg 1.9, Phos ?? Lactate ?? LFT AST ?? AlkPhos ?? T Prot ?? ALK ?? Bili ?? Alb ?? D.Bili ?? Lab Trends: H/H Results from last 7 days Lab Units 06/08/24 0544 06/07/24 0622 06/06/24 0403 HEMOGLOBIN g/dL 9.2* 9.0* 9.2* HEMATOCRIT % 28.4* 28.4* 29.5* INR Cr Results from last 7 days Lab Units 06/08/24 0544 06/07/24 0622 06/06/24 0403 CREATININE mg/dL 0.46* 0.44* 0.50* Medications reviewed. Vital signs reviewed. Labs reviewed. Radiography reviewed. Assessment and Plan: Medical Problems and Relevant Plans Hospital Problems POA * (Principal) CAD, multiple vessel Yes Overview Addendum 05/23/2024 8:44 AM by Marybel Suarez, AUTOMOTIVE PORTER Patient presented to OSH on 05/01/24 c/o chest pain, LHC reveal mvCAD S/p CABG with Dr. Austin on 05/07 Anxiety and depression Yes Overview Addendum 05/23/2024 8:43 AM by Marybel Suarez, AUTOMOTIVE PORTER Continue home bupropion XL 300 mg daily Continue home citalopram 40 mg daily Continue PRN hydroxyzine 25 mg q6 COPD (chronic obstructive pulmonary disease) ([facility]) Yes Overview Addendum 05/23/2024 8:43 AM by Marybel Suarez, AUTOMOTIVE PORTER Duo nebs q6 Wean O2 for SPO2 goal >88% NSTEMI (non-ST elevated myocardial infarction) ([facility]) Yes Overview Addendum 05/22/2024 11:00 AM by Jose Aburto MD Diagnosed at OSH with elevated troponins of 0.05 to 0.23 to 0.16 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, 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 Repeat troponins pending 05/07 POD 1 4V CABG 05/09 EKG ordered and reviewed no signs of ST changes 05/10 ST 105 05/11 ST 100-105 GERD (gastroesophageal reflux disease) Yes Overview Addendum 05/14/2024 2:06 PM by Cydney Luu MD Continue Protonix 40 mg daily 05/07 extubated, no on home PPI dc'd 05/08 pt denies any GERD symptoms 05/09 + PPI for reflux 05/10 docusate, metoclopramide, miralax, senna, simethicone, continue NG to low intermitted, CLD forpt comfort, passing gas 05/11 as above denies reflux today NG clamp trial 05/14 PPI per blue surgery rec for blood tinged NG output Leukocytosis Yes Overview Addendum 05/23/2024 8:50 AM by Marybel Suarez, AUTOMOTIVE PORTER Remains febrile with elevated EBC Cultures ordered and pending Hyperlipidemia Yes Overview Signed 05/23/2024 8:47 AM by Marybel Suarez, AUTOMOTIVE PORTER Restart statin when no longer NPO THOM (obstructive sleep apnea) Yes Overview Addendum 05/23/2024 8:45 AM by Marybel Suarez, ARASH Refusing home CPAP remains on NC S/P CABG x 4 Not Applicable Overview Addendum 05/23/2024 8:45 AM by Marybel Suarez APRN 05/06 4vCABG w/ Dr. Austin Aspirin, statin, beta stacey as clinically appropriate Hypertension Yes Overview Addendum 05/23/2024 8:47 AM by Marybel Suarez, ARASH Metop IV while NPO Restart PO metop when appropriate Cardiac volume overload No Overview Addendum 05/18/2024 10:24 AM by Sidney Jackson MD Diuresis as clinically indicated Hypoglycemia No Overview Addendum 05/23/2024 8:46 AM by Marybel Suarez APRN Resolved once TPN started Nausea with vomiting No Overview Addendum 05/28/2024 8:26 AM by Sidney Jackson MD TPN running Advance PO diet as able Acute blood loss anemia (ABLA) No Overview Addendum 05/23/2024 8:43 AM by Marybel Suarez, ARASH Lab Results Component Value Date HGB 9.0 (L) 05/23/2024 CTM with daily labs Transfuse as indicated Gastric perforation (CMS/HCC) No Overview Addendum 05/28/2024 8:26 AM by Sidney Jackson MD colonic perforation. S/p ex lap with blue surgery on 05/23 On total parenteral nutrition (TPN) No Overview Addendum 05/28/2024 11:41 AM by Sidney Jackson MD Started on 05/20 Obtaining PO calorie count. Will DC TPN when able. Ileus (CMS/HCC) No Overview Addendum 05/28/2024 8:25 AM by Sidney Jackson MD S/p colectomy & end colostomy 05/23 2/2 perforation Electrolyte abnormality Yes Overview Signed 05/23/2024 8:50 AM by Marybel Saurez APRN - monitor and replace prn Post-op pain Unknown Overview Addendum 05/25/2024 10:12 AM by Dave Baird DO Abdominal tenderness and pain 11/23 Increase dilaudid IV ketamine Delirium Unknown Overview Signed 05/29/2024 2:56 PM by Sidney Jackson MD Hospital delirium Delirium precautions Colon perforation (CMS/HCC) Unknown Overview Addendum 05/24/2024 11:04 AM by Jose Aburto MD Noted on CT scan 05/23/24 To OR with blue surgery S/p left colectomy and end colostomy Overall, she continues to slowly improve. Tolerating some of a regular diet but not much appetite. She is improving. LENA drain has low volume purulent output still. Would leave until it clears. Plan: - [place] (two black + bridge) MWF by nursing - Follow SGE LENA output (superior drain in abscess cavity near pancreas), has been low output - Strip LENA drain BID. - zosyn 4 days after IR drain placement Edited by: Carmelita Snyder MD at 06/06/2024 1057 Duane Cruz MD Cosigned by Graciela Nelson MD at 06/11/2024 4:47 PM EDT Associated attestation - Graciela Nelson MD - 06/11/2024 4:47 PM EDT I saw and evaluated the patient with the resident/fellow. I discussed the case with the resident/fellow and agree with the findings and plan as documented. * Care Plan - Justine Lopez RN - 06/08/2024 4:18 PM EDT Problem: Adult Inpatient Plan of Care Goal: Plan of Care Review Outcome: Ongoing, Progressing Goal: Patient-Specific Goal (Individualized) Outcome: Ongoing, Progressing Goal: Absence of Hospital-Acquired Illness or Injury Outcome: Ongoing, Progressing Goal: Optimal Comfort and Wellbeing Outcome: Ongoing, Progressing Goal: Readiness for Transition of Care Outcome: Ongoing, Progressing Problem: Infection Goal: Absence of Infection Signs and Symptoms Outcome: Ongoing, Progressing Problem: Self-Care Deficit Goal: Improved Ability to Complete Activities of Daily Living Outcome: Ongoing, Progressing * Progress Notes - Lester Lazo RN - 06/08/2024 3:14 PM EDT Images from the original note were not included. Wound Care Consult Visit Date: 06/08/2024 Patient Name: Rere Hunter Date of : 1970 Admit Date: 05/01/2024 Reason for Consult: wound vac to ABD inc. Wound History: medical history of HTN, HLD, COPD, GERD, tobacco use, and CAD who presented for chest pain on 05/01 She had a 4v CABG on 05/06 complicated by post-op ileus. SGE consulted for contained perforation (stomach versus colon) seen on CT. New colostomy Wound Assessment: Wound 05/23/24 Surgical Abdomen Upper (Active) Date First Assessed/Time First Assessed: 05/23/24 1419 Hand Hygiene Completed: Yes Primary Wound Type: Surgical Location: Abdomen Wound Location Orientation: Upper Assessments 06/08/2024 3:08 PM Wound Image Wound Assessment Red;Granulation Margins Well-defined edges Jacey-Wound Assessment Intact Drainage Description Serosanguineous Drainage Amount Scant Treatments Cleansed;Saline Dressing Vacuum dressing Number of Packing Pieces Used 1 Dressing Changed Changed Dressing Status Intact Active Orders Date Order Priority Status Authorizing Provider 05/31/24 1255 Wound VAC Dressing Changes (Non-Instillation) Upper Abdomen Surgical Routine Active Maite Austin MD - Who is to perform dressing change:: Nursing Staff - Pressure Settings:: Continuous - mmHg:: 125 mmHg Wound Team Summary Assessment: pt seen for ostomy educ and changed wound vac dressing, details above, wound conts to have good granulation and filling in, 1 black removed and jacey wound prepped with drape and a strip of Khushboo at ostomy wafer for seal, 1 black foam applied with good seal @ 125. Wound Team Plan: Wound care will follow up at regular intervals while inpatient; bedside nursing tofollow wound care recommendations as ordered and please re- consult sooner for new changes or concerns prior to follow up. Lester Lazo RN 06/08/2024 3:14 PM * Progress Notes - Lester Lazo RN - 06/08/2024 3:10 PM EDT Images from the original note were not included. Ostomy Progress Note Visit Date: 06/08/2024 Patient Name: Rere Hunter Date of : 1970 Education Patient provided return demonstration of how to snap together a 2 piece appliance. Patient provided return demonstration of how to open and close the pouch. Patient and/or caregiver demonstrated pouch emptying. Patient and/or caregiver demonstrated appliance change prior to discharge. other education. Pt conts to struggle with cutting the wafer, will need assist at home have offeredto teach daughter twice however pt has not asked yet if she would like to assist. Daughter is a CNAper pt. Also struggling with snapping the bag on however did better today. Wound Ostomy Assessment: Colostomy Transverse RUQ (Active) 05/23/24 RUQ Present on Admission: Earliest Known Present: Placed by External Staff?: Inserted by: Bartolome Hand Hygiene Completed: Yes Colostomy Type: Transverse Stoma Size (cm): Earliest Known Removed: Removal Reason : Wound Image 06/08/24 1507 Stomal Appliance 2 piece;Flat Barrier/Pouch;Flat Ring;Barrier Clinchco/Wipe 06/08/24 1507 Site Assessment Moist;Raised;Red 06/08/24 1507 Peristomal Assessment Intact;Clean 06/08/24 1507 Treatment Bag change;Site care 06/08/24 1507 Output (mL) 250 mL 06/08/24 1507 Gastric Output Appearance Watery 06/08/24 1507 Gastric Output Color Brown 06/08/24 1507 L[facility]azo RN [facility] 06/08/2024 3:10 PM * Consults - Grarett Ruiz - 06/08/2024 9:25 AM EDTAssociated Order(s): IP CONSULT TO NUTRITION SERVICES 06/04: Calorie count consult received. Sign hung on patient door in progress 06/05 - 06/07 RN: Please document percent of all PO food, drink, and supplement intake for the active dates in Epic under the I/O-Calorie Count section in the flow sheet. If no PO food consumed for a particular meal, please document 0% of meal . Results to follow. Estimated Needs: copied from RD note 06/07 Kcal/ K-35 Kcal Provided: 5249-0773 Kcal Needs Based On: Current weight Gm Protein/ Kg : 1.5-2 Protein Provided: 81-109 Protein Needs Based On: Current weight 06/08: Calorie count results: 06/04: ~658kcal; 26g protein 06/05: ~65kcal; 3g protein 06/06: ~66kcal; 4g protein 3-day ave (06/04-06/06) = 263kcal; 11g protein. Patient meeting ~14-16%kcal; 10- 13% protein needs. RD to follow. SARAH SaldivarR * Progress Notes - Dulce Alamo, ARASH - 06/08/2024 9:11 AM EDT CVT Progress Note 24 Hour Events/HPI: Patient complains of getting depressed and anxious about being in the hospital so long. She is currently attempting to eat toast with jelly. Wound vac to be changed today. Review of Systems: A complete ROS was obtained. All were negative except as noted in HPI. Objective: All laboratory data, images, tracings, and vital sign data for past 24 hours are personally reviewed unless otherwise noted. @PATIENTWT@ , Weight: 61.1 kg (134 lb 12.8 oz) , Ht Readings from Last 1 Encounters: 06/07/24 1.549 m (5' 0.98 ) , Body mass index is 23.59 kg/m??. VITALS (last 24h) Temp: [36.7 ??C (98 ??F)-37.1 ??C (98.8 ??F)] 36.7 ??C (98 ??F) Heart Rate: [82-96] 87 Resp: [17-27] 17 BP: (98-130)/(63-77) 98/63 Visit Vitals BP 98/63 (BP Location: Right arm, Patient Position: Lying) Pulse 87 Temp 36.7 ??C (98 ??F) (Oral) Resp 17 Ht 1.549 m (5' 0.98 ) Wt 56.6 kg (124 lb 12.5 oz) SpO2 97% BMI 23.59 kg/m?? Smoking Status Every Day BSA 1.56 m?? I & O Summary Intake/Output Summary (Last 24 hours) at 06/08/2024 0911 Last data filed at 06/08/2024 0600 Gross per 24 hour Intake 2296.43 ml Output 3030 ml Net -733.57 ml LABS CBC WBC 14.57 (H) Hb 9.2 (L) Plt 492 (H) Hct 28.4 (L) BMP Na 133 (L) Cl 99 BUN 11 Glu 114 (H) K 3.5 (L) Co2 27 Cr 0.46 (L) Ca 7.8 (L) Mg 1.9 MEDICATIONS acetaminophen, 500 mg, Oral, q6h LINDA aspirin, 81 mg, Oral, Daily buPROPion XL, 300 mg, Oral, Daily citalopram, 40 mg, Oral, Daily fat emulsion fish/plant based, 250 mL, Intravenous, Every other day heparin (porcine), 5,000 Units, Subcutaneous, q8h lidocaine, 2 patch, Apply externally, q24h melatonin, 6 mg, Oral, Nightly methocarbamol, 500 mg, Oral, TID metoprolol tartrate, 25 mg, Oral, BID pantoprazole, 40 mg, Oral, Daily piperacillin-tazobactam, 4.5 g, Intravenous, q6h potassium chloride, 40 mEq, Oral, Once Followed by potassium chloride, 20 mEq, Oral, Once primidone, 50 mg, Oral, BID rosuvastatin, 40 mg, Oral, Nightly sodium chloride, 10 mL, Intravenous, q12h sodium chloride, 10 mL, Intravenous, q12h Adult 2-in-1 TPN, 65 mL/hr, Last Rate: 65 mL/hr (06/07/242053) PRN medications: benzocaine-menthol, calcium carbonate, HYDROmorphone OR HYDROmorphone, hydrOXYzine pamoate, ipratropium-albuterol, moisturizing mouth, [DISCONTINUED] ondansetron ODT OR ondansetron OR [DISCONTINUED] ondansetron, oxyCODONE OR oxyCODONE, phenol, simethicone, sodium chloride, sodium chloride, Insert peripheral IV AND Saline lock IV AND sodium chloride ANDsodium chloride, sodium chloride No echocardiogram results found for the past 14 days Physical Exam: GENERAL: WD, WN, NAD. EYES: No scleral icterus or conjunctivitis HENT: Atraumatic, normocephalic, nares patent, mucus membranes moist NECK: Supple, trachea midline RESP/CHEST: Symmetric expansion; non labored. CTA bilaterally CARD: Regular rate and rhythm, normal S1 and S2, no murmur, rub, or gallop, Pedal pulses palpable, no JVD. No edema. Sternum stable. Sternal incision with edges approx, CDI. CT/mediastinal site(s) with single suture each, intact. EVH site(s) CDI. Extremities: No cyanosis or clubbing. GI: Soft, Nontender, nondistended. BS present x 4 quadrants. SKIN: No rash. Midline ABD incision with wound vac in place. LENA x 1 to left ABD. Colostomy with ostomy bag in place. Left upper ABD IR placed drain (accordion) remains intact. LUE PICC DSG is CDI. NEURO: AAO. Motor intact and no focal deficits PSYCH: Mood and affect congruent and appropriate to situation. Assessment and Plan: Patient is a 53 yo female with a pmh of HTN, HLD, COPD, GERD, tobacco use, and CAD s/p 4v CABG on 05/06 with post op course complicated by ileus s/p exploratory lap, extended left colectomy, and end colostomy creation on 05/23 for colonic perforation, followed by US guided drain placement by IR on 06/04 for fluid collection in the ABD (perislpenic). CAD, Multiple Vessel NSTEMI (Non-ST Elevated Myocardial Infarction) - Patient presented to OSH on 05/01/24 with chest pain where tropon levels were 0.05 > 0.23 > 0.16 & LHC reveal mvCAD - S/p CABG x [address] Austin on 05/06/2024 - Continue asa, statin, metoprolol - Routine post cardiac surgery care: Sternal precautions x 6 weeks, PT, bowel regimen to prevent constipation and aggressive pulmonary toilet. Gastric Perforation vs Colonic Perforation Ileus - S/p ex lap with left colon resection with end colostomy creation with blue surgery on 05/23/2024 - 06/01: CT abd per Blue surgery giving increasing WBC - 06/02: CT yd with abscess. Started on zosyn yd evening. IR consulted for fluid drainage. Plan for IR procedure on Tuesday - 06/04: S/p Acordian drain placement with IR this AM. Fluid cx pending. Continue zosyn. Blue surg recs: continue zosyn at least 4 days s/p IR drain placement or change abx based on culture data. ABX thru 06/08 Leukocytosis Abdominal Fluid Collection - 05/31: WBC 26.51 - 06/01: WBC 33.03. CT abd per blue surgery - 06/02: WBC 33.90. CT yd with fluid collection. Started on zosyn yd evening. IR consulted for fluiddrainage. - 06/03: WBC 20.40. Plan for IR procedure tomorrow - 06/04: WBC 22.10. S/p Drain placement his AM. Fluid cx pending. Continue zosyn. Blue surg recs: continue zosyn at least 4 days s/p IR drain placement or change abx based on culture data. - 06/05: C/O intense ABD pain after eating any food; surgery reassed with recs for no carbonated beverages and encourage mobility, KUB shows gas distribution. WBC count 19.81 - 06/06: Pain continues after eating. WBC 24.98 - 06/07: Channing count in progress. WBC 16.9 - 06/08: WBC 14.57 - Afebrile, surgery is following - [place] (two black + bridge) MWF by nursing - Gas pain, ostomy functioning appropriately - Follow SGE LENA output (superior drain in fluid cavity near pancreas) - Monitor Anxiety and Depression - Continue home bupropion - Continue home citalopram - Vistaril prn COPD (Chronic Obstructive Pulmonary Disease) - Duo nebs prn GERD (Gastroesophageal Reflux Disease) - 05/07 extubated, not on home PPI, dc'd - 05/08 pt denies any GERD symptoms - 05/09 + PPI for reflux - 05/10 docusate, metoclopramide, miralax, senna, simethicone, continue NG to low intermitted, CLD for pt comfort, passing gas - 05/11 as above denies reflux today NG clamp trial - 05/14 PPI per blue surgery rec for blood tinged NG output - NG now removed Hyperlipidemia - Chol 247, trig 271, HDL 36, LDL 160 - Rosuvastatin 40mg po daily THOM (Obstructive Sleep Apnea) - Refusing home CPAP Hypertension - Metoprolol tartrate 25mg po BID Cardiac Volume Overload - Diuresis prn Hypoglycemia - Resolved once TPN started Nausea with Vomiting - Prn zofran - Promote po intake Acute Blood Loss Anemia (ABLA) - H/H 10.2/31.0 - 06/01: H/H 9.7/29.3 - H/H currently 9.2/28.4 - Monitor and transfuse prn Ileus Gastric Perforation Colonic Perforation Perisplenic Fluid Collection - S/p ex lap with left colon resection with end colostomy with blue surgery on 05/23 - 06/01: CT abd per Blue surgery giving increasing WBC - 06/02: CT yd with abscess. Started on zosyn yd evening. IR consulted for abscess drainage. Plan for IR procedure on Tuesday - 06/04: S/p Drain placement this AM. Fluid cx pending. Continue zosyn. Blue surg recs: continue zosyn at least 4 days s/p IR drain placement or change abx based on culture data On Total Parenteral Nutrition (TPN) - Started on 05/20 - 05/31: Calorie count completed and demonstrated pt was only meeting 12-13% of calorie requirements. Repeat calorie count in progress, to end today 06/07 - Continue TPN - Promote PO intake Electrolyte Abnormality - Monitor and treat Post-op Pain - Abdominal tenderness and pain - MMPC Delirium - Delirium precautions - Resolved Plan: - Encourage PO intake - Repeat calorie count 06/05- 06/07: 3-day ave (06/04-06/06) = 263kcal; 11g protein. Patient meeting ~14-16%kcal; 10-13% protein needs. - Continue TPN - S/p drain placement in IR 06/04; 2 drains remain - Continue zosyn until at least 4 days after drain placed in IR, thru 06/08 - Follow cultures - Wound Vac changes [facility] Cardiothoracic Surgery [phone] * Progress Notes - Db Kline - 06/08/2024 8:54 AM EDT Pharmacist TPN Progress Note Patient: Rere Hunter Age: 53 y.o. Admission Date: [id number] Subjective/Objective/Hospital Course: 53 y.o. female with PMHx of CAD, HTN, COPD, GERD, tremor, anxiety, depression, and tobacco use, who is currently hospitalized under the care of the CVT surgery team after having a CABG on 05/06/24. Since surgery she has developed nausea, vomiting, and abdominal pain with imaging findings consistent with ileus. Patient has had inadequate energy intake likely related to ileus and has been NPO x [address] 05/20 showed intraabdominal fluid adjacent to stomach concerning for possible perforation. UGI with no perforartion. TPN consult for ileus + possible leak. -- 05/17: TPN consult placed -- 05/19: TPN initiated -- 05/23: CT overnight with PO contrast more convincing for colonic perforation instead of stomach perf. OR with general surgery for left hemicolectomy and colostomy creation. -- 05/25: CLD ordered late afternoon -- 05/28: PO diet ordered -- 05/29: S/P Exploratory laparotomy, extensive lysis of adhesions, left colectomy(performed by colorectal surgery), end colostomy creation, abdominal washout, application of negative pressure wound VAC therapy to skin and soft tissues on 05/23 d/t colon perforation. -- 05/31: Calorie count results: 3-day ave = ~206kcal; 6g protein. Patient meeting ~12-13%kcal; 8% protein needs. -- 06/02: CT scan showed abscess, made NPO for potential drainage soon -- 06/03: pending IR drain on 06/04, will be NPO prior -- 06/04: CT-guided fluid collection drainage with tube placement, Reg diet, start calorie count -- 06/05: Plan to continue TPN until complete calorie count (~72 hrs from 06/04) -- 06/06: Eating about 25% of meals but with sharp pain - surgery to reassess -- 06/07: New kcal count in progress Problem List[1] Medical History[2] Surgical History[3] Allergies: Latex and Oxycodone LABS: Results from last 7 days Lab Units 06/08/24 0544 06/07/24 0622 06/06/24 0403 06/05/24 0612 06/04/24 0556 06/03/24 0108 06/02/24 0708 06/02/24 0102 GLUCOSE mg/dL 114* 124* 406* 125* 105* 117* 111* 507* BUN mg/dL 11 13 11 13 12 12 13 11 CREATININE mg/dL 0.46* 0.44* 0.50* 0.50* 0.53* 0.48* 0.60 0.60 SODIUM mmol/L 133* 133* 130* 133* 133* 130* 130* 125* POTASSIUM mmol/L 3.5* 3.7 4.3 3.6 3.8 3.3* 3.6 4.8 CHLORIDE mmol/L 99 99 98 99 101 98 97 93* CO2 mmol/L 27 26 23 26 24 23 21* 20* CALCIUM mg/dL 7.8* 7.8* 7.5* 7.7* 7.7* 7.7* 7.9* 7.9* PHOSPHORUS mg/dL -- -- -- -- -- -- -- 5.8* MAGNESIUM mg/dL 1.9 1.9 2.1 2.0 2.1 2.0 -- 2.3 Results from last 7 days Lab Units 06/08/24 0544 06/07/24 0622 06/06/24 0403 06/05/24 0612 06/04/24 0556 06/03/24 0108 06/02/24 0102 WBC 10*3/uL 14.57* 16.90* 24.98* 19.81* 22.10* 20.40* 33.90* HEMOGLOBIN g/dL 9.2* 9.0* 9.2* 9.3* 9.4* 9.2* 9.2* HEMATOCRIT % 28.4* 28.4* 29.5* 29.0* 29.3* 28.8* 28.7* PLATELETS 10*3/uL 492* 529* 605* 643* 716* 689* 702* Results from last 7 days Lab Units 06/02/24 0102 ALBUMIN g/dL 2.2* Nutrition Labs: Lab Results Component Value Date TRIG 76 05/19/2024 BILITOT 0.9 05/23/2024 ALBUMIN 2.2 (L) 06/02/2024 PREALBUMIN 16.8 (L) 06/03/2024 HGBA1C 5.3 05/01/2024 CRP 225.3 (H) 05/17/2024 IRON 25 (L) 05/14/2024 TIBC 156 (L) 05/14/2024 Microbiology Results Procedure Component Value Units Date/Time Blood Culture (Aerobic/Anaerobet Set) [[id number]] Collected: 05/23/24 1020 Order Status: Completed Specimen: Blood, Venous Updated: 05/24/24 1101 Culture No growth at day 1 Fungal Blood Culture [[id number]] Collected: 05/17/241812 Order Status: Completed Specimen: Blood, Venous Updated: 05/24/24 0638 Culture No Fungal Growth at 1 Week AFB Blood Culture [[id number]] Collected: 05/17/241812 Order Status: Completed Specimen: Blood, Venous Updated: 05/24/2438 AFB Culture No Mycobacterial Growth at 1 Week Vitals: Visit Vitals BP 98/63 (BP Location: Right arm, Patient Position: Lying) Pulse 87 Temp 36.7 ??C (98 ??F) (Oral) Resp 17 Jaida Coma Scale Score: 15 Shaan Scale Score: 18 Oxygen Therapy: None (Room air) Skin Integrity: Other (Comment) (incisions) Edema: Generalized Wt Readings from Last 3 Encounters: 06/08/24 56.6 kg (124 lb 12.5 oz) 06/28/23 59 kg (130 lb) 04/26/23 62.6 kg (138 lb) Current Diet Order: Dietary Orders (From admission, onward) Start Ordered 06/04/24 1147 Adult diet Diet texture: Regular; Carbohydrate restriction: Consistent Carb 2 (80 gm max/meal); Fat restriction: Cardiac; GI: Ostomy Diet effective now Comments: NO SPICY FOODS NO ONIONS References: IDDSI Diet Texture Guide Question Answer Comment Diet texture Regular Carbohydrate restriction: Consistent Carb 2 (80 gm max/meal) Fat restriction: Cardiac GI Ostomy 06/04/24 1147 05/29/24 1449 Oral nutrition supplements (Adult Diet Panel) Until discontinued Question Answer Comment Supplement frequency: Breakfast Supplement frequency: Lunch Supplement frequency: Dinner Breakfast supplement: Roque Fruit Punch Quantity for Breakfast of Roque Fruit Punch Packet One Lunch supplement: Boost Very High Calorie Vanilla Quantity for Lunch of Boost Very High Calorie - Vanilla One Dinner supplement: Roque Fruit Punch Quantity for Dinner of Roque Fruit Punch Packet One 05/29/24 1448 Current Medications acetaminophen, 500 mg, Oral, q6h LINDA aspirin, 81 mg, Oral, Daily buPROPion, 150 mg, Oral, BID FOLLOWED BY buPROPion XL, 300 mg, Oral, Daily citalopram, 40 mg, Oral, Daily fat emulsion fish/plant based, 250 mL, Intravenous, Every other day heparin (porcine), 5,000 Units, Subcutaneous, q8h lidocaine, 2 patch, Apply externally, q24h melatonin, 6 mg, Oral, Nightly methocarbamol, 500 mg, Oral, TID metoprolol tartrate, 25 mg, Oral, BID pantoprazole, 40 mg, Oral, Daily piperacillin-tazobactam, 4.5 g, Intravenous, q6h [COMPLETED] potassium chloride, 40 mEq, Oral, Once FOLLOWED BY potassium chloride, 20 mEq, Oral, Once primidone, 50 mg, Oral, BID rosuvastatin, 40 mg, Oral, Nightly Insert peripheral IV, , , Once AND Saline lock IV, , , Once AND sodium chloride, 10 mL, Intravenous, q12h AND sodium chloride, 10 mL, Intravenous, PRN sodium chloride, 10 mL, Intravenous, q12h Adult 2-in-1 TPN, 65 mL/hr, Last Rate: 65 mL/hr (06/07/242053) Current Anthropometrics: Height: 154.9 cm (5' 0.98 ) Weight: 61.1 kg (134 lb 12.8 oz) [place] body weight: 47.8 kg (105 lb 4.8 oz) Adjusted ideal body weight: 52.8 kg (116 lb 5.7 oz) (126.25%) of IBW Body mass index is 25.13 kg/m??. Adjusted wt: 50.9 kg (if over 125% of IBW) CENTRAL IV Access: PICC (05/18/24) Estimated Nutritional Needs: HBE: 1153 Stress Factor: 1.2-1.4 Total Calories/day: 3790-2238 Protein (amino acids): 1.3-1.6 grams/kg Protein (Amino acids): 66-81 grams/day Measured Energy Needs: Respiratory Quotient: 06/08/2024 Plan/Recommendation: Labs reviewed. Na remains low. All other electrolytes and BG WNL. Continue goal TPN as below. Will continue to monitor and assess PO intake. GOAL TPN: DEXTROSE: 18% (281 g/day CHO) AMINO ACIDS: 5% (78 g/day - 1.51 g/kg/day Amino acids) Cl:A 1:3, K @ 30 mEq/L, Na @ 90 mEq/L @ 65 ml/hr, with 30mg/day thiamine, MVI, and Trace elements Every other day 250ml 20% SMOF lipids 1517 Total kcal/day - 29.8 kcal/kg/day GUR: 3.83 Replace electrolytes outside of TPN Calcium and/or Phosphorus supplements MUST be in a separate line from the TPN to avoid precipitation Obtain BMP, magnesium, and Phos daily x 3days and then at least twice weekly Obtain LFT and TGLY weekly I have monitored the TPN therapy, including the labs, and have communicated any modifications with the primary medical/surgical team. Continue current TPN formula and lipid regimen as above. I have communicated the TPN plan with the IV room. Thank you! Db Kline, PharmD Candidate 2024 Preceptor - Magalie SparksD [1] Patient Active Problem List Diagnosis Anxiety and depression COPD (chronic obstructive pulmonary disease) ([facility] [place]) CAD, multiple vessel NSTEMI (non-ST elevated myocardial infarction) ([facility] [place]) GERD (gastroesophageal reflux disease) Leukocytosis Hyperlipidemia THOM (obstructive sleep apnea) S/P CABG x 4 Hypertension Cardiac volume overload Hypoglycemia Nausea with vomiting Acute blood loss anemia (ABLA) Gastric perforation (CMS/HCC) On total parenteral nutrition (TPN) Ileus ([facility]/HCC) Electrolyte abnormality Colon perforation ([facility]/HCC) Post-op pain Delirium [2] Past Medical History: Diagnosis Date Anxiety COPD (chronic obstructive pulmonary disease) ([facility] [place]) 05/01/2024 Continue Duo nebs q6 SPO2 goal >88% Depression GERD (gastroesophageal reflux disease) 05/01/2024 Continue Protonix 40 mg daily Hyperkalemia 05/06/2024 Now resolved, pt with hypokalemia requiring replacement On mechanically assisted ventilation ([facility] [place]) 05/06/2024 Arrived to ICU intubated 05/07 extubated to 4LNC 05/08 resolved Tobacco use 05/01/2024 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 Complicates all aspects of care and recovery Tremor 05/01/2024 Continue home primidone 50 mg BID [3] Past Surgical History: Procedure Laterality Date ABDOMINAL ADHESION SURGERY SECTION, CLASSIC CHOLECYSTECTOMY CORONARY ARTERY BYPASS GRAFT 05/06/2024 Coronary artery bypass grafting x4 with CHOWDARY to LAD as a free graft, reverse saphenous vein graft sequential to ramus intermedius artery then to obtuse marginal artery 1, reverse saphenous vein graftto PDA.(Reda) HAND SURGERY Right Tendon repair SHOULDER SURGERY Cosigned by Fawn Cardenas PharmD at 06/08/2024 6:10 PM EDT Associated attestation - Fawn Cardenas PharmD - 06/08/2024 6:10 PM EDT I have reviewed the assessment/plan and agree with the below statements. * Care Plan - Justine Lopez RN - 06/07/2024 1:16 PM EDT Problem: Adult Inpatient Plan of Care Goal: Plan of Care Review Outcome: Ongoing, Progressing Goal: Patient-Specific Goal (Individualized) Outcome: Ongoing, Progressing Goal: Absence of Hospital-Acquired Illness or Injury Outcome: Ongoing, Progressing Goal: Optimal Comfort and Wellbeing Outcome: Ongoing, Progressing Goal: Readiness for Transition of Care Outcome: Ongoing, Progressing Problem: Infection Goal: Absence of Infection Signs and Symptoms Outcome: Ongoing, Progressing Problem: Self-Care Deficit Goal: Improved Ability to Complete Activities of Daily Living Outcome: Ongoing, Progressing * Consults - Gretchen Brothers RD - 06/07/2024 12:23 PM EDT Adult Nutrition Evaluation Note Rere Hunter 53 y.o. female CSN: [id number] Room/Bed 117/117A Nutrition evaluation type: follow-up Reason for evaluation: Hospital course: 53 y.o. female presents for CABG evaluation. OR on 05/06. 05/16: NPO x 5 days d/t ileus. Trial of clamping NGT. SGE is following. Pt has been intermittently confused. 05/18: Patient transferred back to ICU yesterday given worsening abdominal exam, electrolyte abnormalities, and overall care requirements. Having fevers, tachycardia. General surgery and GI acutely involved for worsening bowel exam with CT findings concerning for possible gastric perforation. 05/21: Currently receiving TPN. NGT to suction. 05/29: S/P Exploratory laparotomy, extensive lysis of adhesions, left colectomy(performed by colorectal surgery), end colostomy creation, abdominal washout, application of negative pressure wound VAC therapy to skin and soft tissues on 05/23 d/t colon perforation. Continues on TPN, decreased to half rate. Po diet initiated and advanced on 05/28; calorie count started. 06/07: Pt continues on TPN, with PO diet. New Kcal count in progress. Past medical/ surgical history: Medical History[1] Surgical History[2] Social history: Additional comments: Minimal PO intake recently, diet advancing per protocol. 05/11: Pt reports appetite improving, trying to eat. Pt denied n/v/d/c, denied chewing/swallowing difficulty. Pt denied involuntary wt changes. No feeding tube present. 05/31: Nurse providing care at time of visit 06/04: Pt out of room (IR) at time of visit 06/07: Pt reports persistent abd pain with PO intake. AUTOMOTIVE PORTER present encourages pt to move to help relieve gas. Pt denied chewing/swallowing difficulty. UBW ~130# per pt, ~4.6% loss of BW. Pt tries to drink Boost shake, has not had Roque yet. TPN ongoing. Will f/u once kcal count complete. Vitals and Basic Assessment: BP: 112/73 Temp: 37.1 ??C (98.8 ??F) Invasive Ventilator Initiated (ETT/Trach Only): Yes Oxygen Therapy: None (Room air) O2 Delivery Method: Nasal cannula with capnography [place] Coma Scale Score: 15 Shaan Scale Score: 18 Joshua/Cubbin Pressure Risk Score: 45 Most Recent BM Date: 06/03/24 GI Symptoms: Cramping, Gas Edema: Generalized Colostomy output: 180 mL Wound vac in place Allergies: NKFA Medications: acetaminophen, 500 mg, Oral, q6h LINDA aspirin, 81 mg, Oral, Daily buPROPion, 150 mg, Oral, BID FOLLOWED BY buPROPion XL, 300 mg, Oral, Daily citalopram, 40 mg, Oral, Daily fat emulsion fish/plant based, 250 mL, Intravenous, Every other day heparin (porcine), 5,000 Units, Subcutaneous, q8h lidocaine, 2 patch, Apply externally, q24h melatonin, 6 mg, Oral, Nightly methocarbamol, 500 mg, Oral, TID metoprolol tartrate, 25 mg, Oral, BID pantoprazole, 40 mg, Oral, Daily piperacillin-tazobactam, 4.5 g, Intravenous, q6h potassium chloride, 40 mEq, Oral, Once primidone, 50 mg, Oral, BID rosuvastatin, 40 mg, Oral, Nightly Insert peripheral IV, , , Once AND Saline lock IV, , , Once AND sodium chloride, 10 mL, Intravenous, q12h AND sodium chloride, 10 mL, Intravenous, PRN sodium chloride, 10 mL, Intravenous, q12h PRN medications: benzocaine-menthol, calcium carbonate, HYDROmorphone OR HYDROmorphone, hydrOXYzine pamoate, ipratropium-albuterol, [DISCONTINUED] ondansetron ODT OR ondansetron OR [DISCONTINUED] ondansetron, oxyCODONE OR oxyCODONE, phenol, simethicone, sodium chloride, sodium chloride, Insert peripheral IV AND Saline lock IV AND sodium chloride AND sodium chloride, sodium chloride Meds were reviewed: Yes Labs: Lab Results Component Value Date GLUCOSE 124 (H) 06/07/2024 CALCIUM 7.8 (L) 06/07/2024 NA 133 (L) 06/07/2024 K 3.7 06/07/2024 CO2 26 06/07/2024 CL 99 06/07/2024 BUN 13 06/07/2024 CREATININE 0.44 (L) 06/07/2024 PHOS 5.8 (H) 06/02/2024 MG 1.9 06/07/2024 HGBA1C 5.3 05/01/2024 Anthropometrics: Height: 154.9 cm (5' 0.98 ) Weight: 56.4 kg (124 lb 5.4 oz) BMI (Calculated): 23.51 Weight Evaluation: Overweight (BMI 25-29.9) [place] Body Weight (kg): 47.7 Percent [place] Body Weight: 118 Adjusted Body Weight (kg): 50.9 Wt Readings from Last 10 Encounters: 06/07/24 56.4 kg (124 lb 5.4 oz) 06/28/23 59 kg (130 lb) 04/26/23 62.6 kg (138 lb) 01/18/23 61.7 kg (136 lb) Estimated Needs: Kcal/ K-35 Kcal Provided: 1242-2210 Kcal Needs Based On: Current weight Gm Protein/ Kg : 1.5-2 Protein Provided: 81-109 Protein Needs Based On: Current weight Metabolic Cart Study Results: Current Nutrition Intake: Diet Supplements: Roque Packet, Boost Very High Calorie Diet Order: Adult Diet Diet Texture: Regular Adult Carbohydrate Restriction: Consistent CHO 2 (8242-5223 Ch[place], 80 g/meal) Fat Restriction: Cardiac Other Restrictions: Other (Comment) (GI: Ostomy) Percent Meals Eaten (%): 25% x 2 meals- Kcal count in Progress GOAL TPN: DEXTROSE: 18% (281 g/day CHO) AMINO ACIDS: 5% (78 g/day - 1.51 g/kg/day Amino acids) C:A 1:3, K @ 30 mEq/L @ 65 ml/hr, with 30mg/day thiamine, MVI, and Trace elements Every other day 250ml 20% SMOF lipids 1517 Total kcal/day - 29.8 kcal/kg/day GUR: 3.83 Calorie Count Results: To conclude 06/07- results to follow Diet Experience and Nutrition History: Diet Education Provided: Will monitor Pertinent home medications: reviewed Gnosticist needs: Nutrition Focused Physical Exam: Physical exam performed on (date): 05/11 Temples (muscles): None Clavicle (muscle): None Shoulder (muscle): None Interosseous (muscle): None Thigh (muscle): None Calf (muscle): Mild Orbital (fat): None Triceps (fat): None Assessment of Malnutrition: Malnutrition Identified: No Nutrition Problem: Increased nutrient needs protein, calories related to s/p CABG/exp lap as evidenced by increased metabolic demands of surgical wound healing. Status of Nutrition Diagnosis: Ongoing Inadequate energy intake related to ileus/possible gastric perforation -> colonic perforation asevidenced by NPO x 7 days -> TPN initiated -> TPN + po diet Status of Nutrition Diagnosis: Improvement Nutrition Interventions and Recommendations: - TPN per pharmacy. - Continue PO diet as tolerated. - Continue Boost VHC once daily + Roque BID (located in [employer] utility). -Document PO intake in flowsheet Nutrition Monitoring and Goals: - Will monitor PO intake, weight, skin, labs, nutrition status - Improved PO intake - monitor elytes (ongoing) - monitor ostomy output - Pt will maintain body weight throughout hospital admission (ongoing) - ostomy diet education prior to d/c- completed -f/u NFPE as able Acuity Level: 5 Gretchen Brothers, RD, LD [1] Past Medical History: Diagnosis Date Anxiety COPD (chronic obstructive pulmonary disease) ([facility] [place]) 05/01/2024 Continue Duo nebs q6 SPO2 goal >88% Depression GERD (gastroesophageal reflux disease) 05/01/2024 Continue Protonix 40 mg daily Hyperkalemia 05/06/2024 Now resolved, pt with hypokalemia requiring replacement On mechanically assisted ventilation ([facility] [place]) 05/06/2024 Arrived to ICU intubated 05/07 extubated to [facility] 05/08 resolved Tobacco use 05/01/2024 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 Complicates all aspects of care and recovery Tremor 05/01/2024 Continue home primidone 50 mg BID [2] Past Surgical History: Procedure Laterality Date ABDOMINAL ADHESION SURGERY SECTION, CLASSIC CHOLECYSTECTOMY CORONARY ARTERY BYPASS GRAFT 05/06/2024 Coronary artery bypass grafting x4 with CHOWDARY to LAD as a free graft, reverse saphenous vein graft sequential to ramus intermedius artery then to obtuse marginal artery 1, reverse saphenous vein graftto PDA.(Reda) HAND SURGERY Right Tendon repair SHOULDER SURGERY * Progress Notes - Keisha Sabillon - 06/07/2024 11:25 AM EDT Occupational Therapy Re-Assessment Patient Name: Rere Hunter Today's Date: 06/07/2024 OT Discharge Recommendations: LTACH Equipment Recommended: Defer to facility History Rere Hunter is 53 y.o. female admitted 05/01/2024 for work-up of CAD, multiple vessel. Hospital Course 1. S/P CABG x 4 2. CAD, multiple vessel 3. Cardiac volume overload 4. Colon perforation ([facility] [place]) 5. Abdominal fluid collection Procedures 05/23/2024 Procedure(s): LAPAROTOMY, EXPLORATORY, possible bowel resection, possible ostomy COLECTOMY, PARTIAL Past Medical History Patient has a past medical history of Anxiety, COPD (chronic obstructive pulmonary disease) ([facility] [place]) (05/01/2024), Depression, GERD (gastroesophageal reflux disease) (05/01/2024), Hyperkalemia (05/06/2024), On mechanically assisted ventilation ([facility] [place]) (05/06/2024), Tobacco use (05/01/2024), and T remor (05/01/2024). Past Surgical History Patient has a past surgical history that includes section, classic; Cholecystectomy; Shoulder surgery; Abdominal adhesion surgery; Hand surgery (Right); and Coronary artery bypass graft (05/06/2024). Precautions Medical Precautions: Fall precautions, Sternal Subjective Pt agreeable to participate in OT session. Participants in Care Family/Caregiver Present: No Family/Caregiver: Adult Son Tester Equipment: Not Applicable Presentation Oxygen Therapy: None (Room air) Lines and Tubes: Telemetry Closed/Suction Drain 1 Left Abdomen Bulb 19 Fr. (Active) Closed/Suction Drain 3 Left LUQ Accordion 8 Fr. (Active) Colostomy Transverse RUQ (Active) PICC Double Lumen 05/19/24 Left Basilic vein (Active) Negative Pressure Wound Therapy Abdomen Lower;Upper;Mid (Active) Pre-Session: Supine, Head of bed elevated, Lines intact Pre-Session Comments: RN agreeable to letting therapist take patient outside Post-Session: Sitting in chair, Lines intact, RN notified, Call light in reach Post-Session Comments: All needs met. 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 Objective Pain Pt reports gas pains and cramping in stomach, no numerical rating provided. Pt positioned for comfort and pressure relief at close of session. Delirium Screening Urban Agitation Sedation Scale (RASS): Alert and calm Confusion Assessment Method-ICU (CAM-ICU/PCAM-ICU) Feature 3: Altered Level of Consciousness: Negative Cognition Overall Cognitive Status: Within Functional Limits Arousal/Alertness: Appropriate responses to stimuli Mood/Behavior: Alert Orientation Level: Oriented X4 Single Step Commands: Consistently Multi-Step Commands: Consistently Method of Communication: Verbal Right Upper Extremity Examination RUE ROM Assessment RUE Assessment: Within Functional Limits Manual Muscle Testing - RUE: (NT 2/2 sternal precautions) Sensation Light Touch: Right Upper Extremity: Intact Left Upper Extremity Examination LUE ROM Assessment LUE Assessment: Within Functional Limits Manual Muscle Testing - LUE: (NT 2/2 sternal precautions) Sensation Light Touch: Left Upper Extremity: Intact Right Lower Extremity Examination RLE ROM Assessment RLE Assessment: Within Functional Limits Manual Muscle Testing - RLE: Within functional limits Sensation Light Touch: Right Lower Extremity: Intact Left Lower Extremity Examination LLE Assessment: Within Functional Limits Manual Muscle Testing: Within functional limits Sensation Light Touch: Left Lower Extremity: Intact Bed Mobility Bed Mobility Exam: Scooting/Bridging Level of Harmon: Maximum assist (25% patient's effort) (Seated scooting hips towards EOB withuse of draw sheet.) Physical/Nonphysical Assist: Verbal Cues, Nonverbal cues (demo/gestures) Assistive Device: Other (draw sheet) Bed Mobility Exam: Supine to Sit Level of Harmon: Maximum assist (25% patient's effort) Physical/Nonphysical Assist: Verbal Cues, Set-up required Assistive Device: Other (drawsheet) Bed Mobility Exam: Sit to Supine Level of Harmon: Minimum assist (75% patient's effort) Physical/Nonphysical Assist: Nonverbal cues (demo/gestures), Verbal Cues, Additional assist utilized for safety Transfers Transfer Exam: Sit to stand Level of Harmon: Contact guard Physical/Nonphysical Assist: Verbal Cues, Set-up required Assistive Device: Rollator Transfer Exam: Stand to Sit Level of Harmon: Contact guard Physical/Nonphysical Assist: Verbal Cues, Set-up required Assistive Device: Rollator Toilet Transfer Level of Harmon: Minimum assist (75% patient's effort) Physical/Nonphysical Assist: Set-up required, Verbal Cues Type of Transfer: Ambulation, To toilet Assistive Device: Rollator Balance Postural Appearance Posture: Stooped posture, Forward head, Rounded shoulders Static Sitting Balance Static Sitting-Balance Support: Feet supported Static Sitting-Level of Assistance: Standby assist Dynamic Sitting Balance Dynamic Sitting-Balance Support: Feet supported Dynamic Sitting-Balance: Anterior/Posterior weight shifts Level of Assistance: Standby assisst Static Standing Balance Static Standing-Balance Support: Right upper extremity support, Left upper extremity support Static Standing-Level of Assistance: Contact guard Dynamic Standing Balance Dynamic Standing-Balance Support: Right upper extremity support, Left upper extremity support Dynamic Standing-Balance: Anterior/Posterior weight shifts Dynamic Standing Level of Assistance: Contact guard Participation in Functional Tasks: Contact guard Self-Care Interventions Self Care/Home Management (ADLs) Time Entry: 40 Pt benefited from skilled occupational therapy interventions including: MIN verbal and tactile cues to facilitate improved body mechanics and safety with AD use during functional tasks Provision of increased time frames to support optimal level of pt participation Task/activity modification with grading as needed to achieve safety while also providing appropriate functional challenge Skilled organization and management of medical lines/tubes to reduce fall risk with mobility aspects of ADLs Environmental set-up to ensure safety and accessibility to all needed areas of treatment space Toileting Toileting Level of Assistance: Minimum assistance, Contact guard Where Assessed: Toilet Toileting Interventions: In preparation for functional demands of toileting, pt completed low surface sit>stand transfers x 2 trials in order to simulate functional toilet transfer. Pt completed trials with contact guard assist. Pt additionally completed functional mobility to bathroom with CGA and functional toilet transfer on/off toilet with min assist utilizing grab bar. Pt completing clothing management and jacey-care in sitting/standing with CGA. Health Management Health Management interventions:Therapist facilitated functional bed mobility in preparation for OOB ADL engagement. Pt completed supine>sit with ax assist x 2 for trunk control and BLE management. Pt continues to require verbal cues regarding sternal precautions in relation to bed mobility and ADL performance. Increased time, verbal and tactile cues, environmental set-up, standing rest breaks, additonal assist for line management/chair follow, and positioning utilized throughout session to facilitate optimal pt performance in therapeutic tasks. Household/Community Re-entry: Patient challenged to perform functional mobility within room, bathroom, and in hallway to address functional endurance, environmental navigation, and prepare patient for community re-entry and navigate household distances. Pt navigating through doorways, along straight paths, around turns, and around large obstacles with CGA using rollator + chair follow. Pt requiring 1 prolonged seated rest break to navigate a functional mobility distances this date. Therapist provided minimal verbal cues for postural control, pacing, and weight shifting to improve dynamic balance and safety awareness. Standardized Assessments [facility] 6-Click Daily Activities Help from Other: Don/Doff Regular Lower Body Clothings: Little Help From Other: Bathing: Little Help From Other: Toileting: Little Help From Other: Don/Doff Upper Body Clothings: Little Help From Other: Grooming: Little Help From Other: Eating Meals: None [facility] 6 Click - Daily Activities Score: 19 No data recorded Assessment On this date, pt demonstrated functional improvement during OT session, with ability to engage in ADL preparatory routines with CGA-min assist, use of assistive devices/adaptive equipment (rollator),increased time, min-mod cueing, and rest breaks. Pt remains limited by symptoms consistent with anxiety, poor functional endurance, mild imbalance and decreased activity tolerance. This negatively impacts safety and independence with self-care execution/IADL's. With this in mind, OT will continue to follow while hospitalized but pt is currently most appropriate for LTACH upon discharge 2/2 TPN requirements. While pt remains hospitalized, continue OT POC. OT Findings: Impaired ADL performance, Impaired IADL performance, Impaired judgment during ADL, Impaired cognition, Impaired attention, Decreased endurance/ventilation/gas exchange, Impaired executive function, Impaired functional mobility, Impaired postural/trunk control, Impaired balance Evaluation/Treatment Tolerance: Patient limited by fatigue Rehab Potential: Good, to achieve stated therapy goals Barriers to Discharge: Comorbidities OT Recommendations Discharge Destination: LTACH Discharge Equipment: Defer to facility Demonstrates Need for Referral to Another Service: Social work Plan Planned OT Interventions ADL retraining, IADL retraining, Balance training, Bed mobility Training, Functional mobility, Transfer training, Caregiver education OT Frequency 2 - 5 times per week OT Duration 2 weeks OT GOAL DETAILS DATE ASSESSED STATUS PROGRESS OT Goal 1: Pt will perform functional toilet transfer including entering/exiting bathroom with mod I using DME as needed. OT Goal 1 Established Date: 05/07/24 OT Goal 1 Time Frame: 2 weeks 06/07/24 Goal not met, Goal ongoing Continuing progress towards goal,Good progress towards goal OT Goal 2: Pt will perform three consecutive grooming activities standing at the sink with mod I using DME as needed. OT Goal 2 Established Date: 05/07/24 OT Goal 2 Time Frame: 2 weeks 06/07/24 Goal not met, Goal ongoing Continuing progress towards goal,Good progress towards goal OT Goal 3: Pt will perform three consecutive LB dressing activities in sitting/standing with mod I using DME/AE as needed. OT Goal 3 Established Date: 05/07/24 OT Goal 3 Time Frame: 2 weeks 06/07/24 Goal not met, Goal ongoing Continuing progress towards goal,Good progress towards goal OT Goal 4: Pt will verbalize/demonstrate sternal precautions with 100% accuracy in order to safely participate in her ADL routine. OT Goal 4 Established Date: 05/07/24 OT Goal 4 Time Frame: 2 weeks 06/07/24 Goal not met, Goal ongoing Continuing progress towards goal,Good progress towards goal Written by Keisha Sabillon on 06/07/24 at 2:12 PM. * Progress Notes - Duane Amor - 06/07/2024 11:24 AM EDT Physical Therapy Re-Assessment Patient Name: Rere Hunter Today's Date: 06/07/2024 PT Discharge Recommendations: LTACH Equipment Recommended: Defer to facility History Rere Hunter is 53 y.o. female admitted 05/01/2024 for work-up of CAD, multiple vessel. Hospital Course 1. S/P CABG x 4 2. CAD, multiple vessel 3. Cardiac volume overload 4. Colon perforation ([facility]) 5. Abdominal fluid collection Procedures 05/23/2024 Procedure(s): LAPAROTOMY, EXPLORATORY, possible bowel resection, possible ostomy COLECTOMY, PARTIAL Past Medical History Patient has a past medical history of Anxiety, COPD (chronic obstructive pulmonary disease) ([facility]) (05/01/2024), Depression, GERD (gastroesophageal reflux disease) (05/01/2024), Hyperkalemia (05/06/2024), On mechanically assisted ventilation ([facility]) (05/06/2024), Tobacco use (05/01/2024), and T remor (05/01/2024). Past Surgical History Patient has a past surgical history that includes section, classic; Cholecystectomy; Shoulder surgery; Abdominal adhesion surgery; Hand surgery (Right); and Coronary artery bypass graft (05/06/2024). Precautions Medical Precautions: Fall precautions, Sternal Subjective Patient reports being frustrated by consistent stomach pain and dry mouth, just wants to feel better. Participants in Care Family/Caregiver Present: No Family/Caregiver: Adult Son Presentation Oxygen Therapy: None (Room air) Lines and Tubes: Telemetry Closed/Suction Drain 1 Left Abdomen Bulb 19 Fr. (Active) Closed/Suction Drain 3 Left LUQ Accordion 8 Fr. (Active) Colostomy Transverse RUQ (Active) PICC Double Lumen 05/19/24 Left Basilic vein (Active) Negative Pressure Wound Therapy Abdomen Lower;Upper;Mid (Active) Pre-Session: Supine, Head of bed elevated, Lines intact Pre-Session Comments: RN agreeable to letting therapist take patient outside Post-Session: Sitting in chair, Lines intact, RN notified, Call light in reach Post-Session Comments: All needs met. 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 Positioned for comfort at end of session with pillow support provided. Delirium Screening Urban Agitation Sedation Scale (RASS): Alert and calm Confusion Assessment Method-ICU (CAM-ICU/PCAM-ICU) Feature 3: Altered Level of Consciousness: Negative Cognition Overall Cognitive Status: Within Functional Limits Arousal/Alertness: Appropriate responses to stimuli Mood/Behavior: Alert Orientation Level: Oriented X4 Single Step Commands: Consistently Multi-Step Commands: Consistently Method of Communication: Verbal Right Upper Extremity Examination RUE ROM Assessment RUE Assessment: Within Functional Limits Manual Muscle Testing - RUE: (NT 2/2 sternal precautions) Sensation Light Touch: Right Upper Extremity: Intact Left Upper Extremity Examination LUE ROM Assessment LUE Assessment: Within Functional Limits Manual Muscle Testing - LUE: (NT 2/2 sternal precautions) Sensation Light Touch: Left Upper Extremity: Intact Right Lower Extremity Examination RLE ROM Assessment RLE Assessment: Within Functional Limits Manual Muscle Testing - RLE: Within functional limits Sensation Light Touch: Right Lower Extremity: Intact Left Lower Extremity Examination LLE Assessment: Within Functional Limits Manual Muscle Testing: Within functional limits Sensation Light Touch: Left Lower Extremity: Intact Bed Mobility Bed Mobility Exam: Scooting/Bridging Level of Harmon: Maximum assist (25% patient's effort) Physical/Nonphysical Assist: Verbal Cues, Set-up required, Additional assist utilized for safety Assistive Device: Other (draw sheet to scoot to EOB) Bed Mobility Exam: Supine to Sit Level of Harmon: Maximum assist (25% patient's effort) Physical/Nonphysical Assist: Verbal Cues, Set-up required Assistive Device: Other (draw sheet) Bed Mobility Exam: Sit to Supine Level of Harmon: Minimum assist (75% patient's effort) Physical/Nonphysical Assist: Nonverbal cues (demo/gestures), Verbal Cues, Additional assist utilized for safety Transfers Transfer Exam: Sit to stand Level of Harmon: Contact guard Physical/Nonphysical Assist: Verbal Cues, Set-up required Assistive Device: Rollator Transfer Exam: Stand to Sit Level of Harmon: Contact guard Physical/Nonphysical Assist: Verbal Cues, Set-up required Assistive Device: Rollator Toilet Transfer Level of Harmon: Minimum assist (75% patient's effort) Physical/Nonphysical Assist: Verbal Cues, Set-up required Type of Transfer: Ambulation, To toilet Assistive Device: Rollator Ambulation Device: Rollator Assistance: Contact guard assist, Minimal verbal cues, Chair follow Distance : 200'x2 Ambulation Comments: Patient continued to ambulate with a slow pace, decreased step length, and decreased foot clearance. She had no loss of balance but continued to be rapidly fatigued and limited by stomach pain with mobility. Balance Postural Appearance Posture: Stooped posture, Forward head, Rounded shoulders Static Sitting Balance Static Sitting-Balance Support: Feet supported Static Sitting-Level of Assistance: Standby assist Dynamic Sitting Balance Dynamic Sitting-Balance Support: Feet supported Level of Assistance: Standby assisst Static Standing Balance Static Standing-Balance Support: Right upper extremity support, Left upper extremity support Static Standing-Level of Assistance: Contact guard Dynamic Standing Balance Dynamic Standing-Balance Support: Right upper extremity support, Left upper extremity support Dynamic Standing Level of Assistance: Contact guard Participation in Functional Tasks: Contact guard Therapeutic Activity (39 minutes) Patient requested to use restroom at start of session. She required increased time for toileting, Debbie for transfers, and CGA for ADL's in standing. After performing tasks in restroom she required a brief rest break before ambulating in hallway. Patient required brief breaks and increased time throughout session due to shortness of air/fatigue. Therapist provided cues for focus on pacing and energy conservation in order to improve endurance/activity tolerance this session. Patient was able to ambulate 200'x2 with a prolonged seated rest break. Therapist gained clearance from RN for taking session outside as patient had previously requested to go outside 2/2 long hospitalization and verbally expressed frustration. While outside patient performed static/dynamic sitting and standing balance tasks with no loss of balance. She continued to require verbal cues for maintaining sternal precautions throughout session as she would occasionally use upper extremities to push/pull outside base of support. Standardized Assessments Standardized Assessments Standardized Assessments: AMPAC 6-Clicks Mobility Assessment AMPA 6-Clicks Mobility Assessment Difficulty patient has turning over in bed (including adjusting bedclothes, sheets, and blankets)?:A little Difficulty patient has sitting down on and standing up from a chair with arms (wheelchair, bedside commode, etc.)?: A little Difficulty patient has moving from lying on back to sitting on the side of the bed?: A lot How much help does the patient need moving to and from a bed to a chair (including a wheelchair)?: A little How much help does the patient need to walk in hospital room?: A little How much help does the patient need climbing 3-5 steps with a railing?: A little [facility] 6-Clicks Mobility Assessment Total : 17 No data recorded Standardized Assessments Standardized Assessments Standardized Assessments: [facility] 6-Clicks Mobility Assessment [facility] 6-Clicks Mobility Assessment Difficulty patient has turning over in bed (including adjusting bedclothes, sheets, and blankets)?:A little Difficulty patient has sitting down on and standing up from a chair with arms (wheelchair, bedside commode, etc.)?: A little Difficulty patient has moving from lying on back to sitting on the side of the bed?: A lot How much help does the patient need moving to and from a bed to a chair (including a wheelchair)?: A little How much help does the patient need to walk in hospital room?: A little How much help does the patient need climbing 3-5 steps with a railing?: A little [facility] 6-Clicks Mobility Assessment Total : 17 No data recorded Assessment Patient with improvements in overall activity tolerance and gait distance over the last couple of days reporting that she was able to walk the big loop yesterday. She continues to to be limited by stomach pain/cramps limiting overall mobility. Patient would benefit from continued skilled PT services to facilitate return to [facility]. PT Recommendations Discharge Destination: LTACH Discharge Equipment: Defer to facility Plan Planned PT Interventions Balance training, Bed mobility training, Gait training, Transfer training, Functional Mobility, Postural re-education, Strengthening PT Frequency 2 - 5 times per week PT Duration 2 weeks Goals PT GOAL DETAILS DATE ASSESSED STATUS PROGRESS PT Goal 1: Pt will perform supine<>sit transfers with CGA and HOB flat, no use of bed rails. PT Goal 1 Established Date: 05/07/24 PT Goal 1 Time Frame: 2 weeks 06/07/24 Goal ongoing Continuing progress towards goal PT Goal 2: Pt will perform sit to stand and bed to chair transfers with Stefan and LRD. PT Goal 2 Established Date: 05/07/24 PT Goal 2 Time Frame: 2 weeks 06/07/24 Goal ongoing Continuing progress towards goal PT Goal 3: Pt will ambulate >600ft with Stefan and LRD. PT Goal 3 Established Date: 05/07/24 PT Goal 3 Time Frame: 2 weeks 06/07/24 Goal ongoing Continuing progress towards goal PT Goal 4: Pt will safely ascend/descend 3 steps with SBA, one handrail. PT Goal 4 Established Date: 05/07/24 PT Goal 4 Time Frame: 2 weeks 06/07/24 Goal ongoing Continuing progress towards goal Written by Duane Amor on 06/07/24 at 12:47 PM. * Progress Notes - Db Kline - 06/07/2024 11:12 AM EDT Pharmacist TPN Progress Note Patient: Rere Hunter Age: 53 y.o. Admission Date: [id number] Subjective/Objective/Hospital Course: 53 y.o. female with PMHx of CAD, HTN, COPD, GERD, tremor, anxiety, depression, and tobacco use, who is currently hospitalized under the care of the CVT surgery team after having a CABG on 05/06/24. Since surgery she has developed nausea, vomiting, and abdominal pain with imaging findings consistent with ileus. Patient has had inadequate energy intake likely related to ileus and has been NPO x [address] 05/20 showed intraabdominal fluid adjacent to stomach concerning for possible perforation. UGI with no perforartion. TPN consult for ileus + possible leak. -- 05/17: TPN consult placed -- 05/19: TPN initiated -- 05/23: CT overnight with PO contrast more convincing for colonic perforation instead of stomach perf. OR with general surgery for left hemicolectomy and colostomy creation. -- 05/25: CLD ordered late afternoon -- 05/28: PO diet ordered -- 05/29: S/P Exploratory laparotomy, extensive lysis of adhesions, left colectomy(performed by colorectal surgery), end colostomy creation, abdominal washout, application of negative pressure wound VAC therapy to skin and soft tissues on 05/23 d/t colon perforation. -- 05/31: Calorie count results: 3-day ave = ~206kcal; 6g protein. Patient meeting ~12-13%kcal; 8% protein needs. -- 06/02: CT scan showed abscess, made NPO for potential drainage soon -- 06/03: pending IR drain on 06/04, will be NPO prior -- 06/04: CT-guided fluid collection drainage with tube placement, Reg diet, start calorie count --06/05: Plan to continue TPN until complete calorie count (~72 hrs from 06/04) --06/06: Eating about 25% of meals but with sharp pain - surgery to reassess Problem List[1] Medical History[2] Surgical History[3] Allergies: Latex and Oxycodone LABS: Results from last 7 days Lab Units 06/07/24 0622 06/06/24 0403 06/05/24 0606/04/24 0556 06/03/24 0108 06/02/24 0708 06/02/24 01006/01/24 0120 GLUCOSE mg/dL 124* 406* 125* 105* 117* 111* 507* 495* BUN mg/dL 13 11 13 12 12 13 11 12 CREATININE mg/dL 0.44* 0.50* 0.50* 0.53* 0.48* 0.60 0.60 0.54* SODIUM mmol/L 133* 130* 133* 133* 130* 130* 125* 126* POTASSIUM mmol/L 3.7 4.3 3.6 3.8 3.3* 3.6 4.8 4.9 CHLORIDE mmol/L 99 98 99 101 98 97 93* 95* CO2 mmol/L 26 23 26 24 23 21* 20* 20* CALCIUM mg/dL 7.8* 7.5* 7.7* 7.7* 7.7* 7.9* 7.9* 8.0* PHOSPHORUS mg/dL -- -- -- -- -- -- 5.8* 5.2* MAGNESIUM mg/dL 1.9 2.1 2.0 2.1 2.0 -- 2.3 2.3 Results from last 7 days Lab Units 06/07/24 0622 06/06/24 0403 06/05/24 0612 06/04/24 0556 06/03/24 0108 06/02/24 0102 06/01/24 0120 WBC 10*3/uL 16.90* 24.98* 19.81* 22.10* 20.40* 33.90* 33.03* HEMOGLOBIN g/dL 9.0* 9.2* 9.3* 9.4* 9.2* 9.2* 9.7* HEMATOCRIT % 28.4* 29.5* 29.0* 29.3* 28.8* 28.7* 29.3* PLATELETS 10*3/uL 529* 605* 643* 716* 689* 702* 644* Results from last 7 days Lab Units 06/02/24 0102 06/01/24 0120 ALBUMIN g/dL 2.2* 2.2* Nutrition Labs: Lab Results Component Value Date TRIG 76 05/19/2024 BILITOT 0.9 05/23/2024 ALBUMIN 2.2 (L) 06/02/2024 PREALBUMIN 16.8 (L) 06/03/2024 HGBA1C 5.3 05/01/2024 CRP 225.3 (H) 05/17/2024 IRON 25 (L) 05/14/2024 TIBC 156 (L) 05/14/2024 Microbiology Results Procedure Component Value Units Date/Time Blood Culture (Aerobic/Anaerobet Set) [[id number]] Collected: 05/23/24 1020 Order Status: Completed Specimen: Blood, Venous Updated: 05/24/24 1101 Culture No growth at day 1 Fungal Blood Culture [[id number]] Collected: 05/17/241812 Order Status: Completed Specimen: Blood, Venous Updated: 05/24/24 0638 Culture No Fungal Growth at 1 Week AFB Blood Culture [[id number]] Collected: 05/17/241812 Order Status: Completed Specimen: Blood, Venous Updated: 05/24/24 0638 AFB Culture No Mycobacterial Growth at 1 Week Vitals: Visit Vitals BP 120/75 (BP Location: Right arm, Patient Position: Lying) Pulse 91 Temp 36.7 ??C (98 ??F) (Oral) Resp 21 [place] Coma Scale Score: 15 [place] Scale Score: 18 Oxygen Therapy: None (Room air) Skin Integrity: Other (Comment) Edema: Generalized Wt Readings from Last 3 Encounters: 06/07/24 56.4 kg (124 lb 5.4 oz) 06/28/23 59 kg (130 lb) 04/26/23 62.6 kg (138 lb) Current Diet Order: Dietary Orders (From admission, onward) Start Ordered 06/04/24 1147 Adult diet Diet texture: Regular; Carbohydrate restriction: Consistent Carb 2 (80 gm max/meal); Fat restriction: Cardiac; GI: Ostomy Diet effective now Comments: NO SPICY FOODS NO ONIONS References: IDDSI Diet Texture Guide Question Answer Comment Diet texture Regular Carbohydrate restriction: Consistent Carb 2 (80 gm max/meal) Fat restriction: Cardiac GI Ostomy 06/04/24 1147 05/29/24 1449 Oral nutrition supplements (Adult Diet Panel) Until discontinued Question Answer Comment Supplement frequency: Breakfast Supplement frequency: Lunch Supplement frequency: Dinner Breakfast supplement: Roque Fruit Punch Quantity for Breakfast of Roque Fruit Punch Packet One Lunch supplement: Boost Very High Calorie Vanilla Quantity for Lunch of Boost Very High Calorie - Vanilla One Dinner supplement: Roque Fruit Punch Quantity for Dinner of Roque Fruit Punch Packet One 05/29/24 1448 Current Medications acetaminophen, 500 mg, Oral, q6h LINDA aspirin, 81 mg, Oral, Daily buPROPion, 150 mg, Oral, BID FOLLOWED BY buPROPion XL, 300 mg, Oral, Daily citalopram, 40 mg, Oral, Daily fat emulsion fish/plant based, 250 mL, Intravenous, Every other day heparin (porcine), 5,000 Units, Subcutaneous, q8h lidocaine, 2 patch, Apply externally, q24h melatonin, 6 mg, Oral, Nightly methocarbamol, 500 mg, Oral, TID metoprolol tartrate, 25 mg, Oral, BID pantoprazole, 40 mg, Oral, Daily piperacillin-tazobactam, 4.5 g, Intravenous, q6h potassium chloride, 40 mEq, Oral, Once primidone, 50 mg, Oral, BID rosuvastatin, 40 mg, Oral, Nightly Insert peripheral IV, , , Once AND Saline lock IV, , , Once AND sodium chloride, 10 mL, Intravenous, q12h AND sodium chloride, 10 mL, Intravenous, PRN sodium chloride, 10 mL, Intravenous, q12h Adult 2-in-1 TPN, 65 mL/hr, Last Rate: 65 mL/hr (06/06/242110) Current Anthropometrics: Height: 154.9 cm (5' 0.98 ) Weight: 61.1 kg (134 lb 12.8 oz) [place] body weight: 47.8 kg (105 lb 4.8 oz) Adjusted ideal body weight: 52.8 kg (116 lb 5.7 oz) (126.25%) of IBW Body mass index is 25.13 kg/m??. Adjusted wt: 50.9 kg (if over 125% of IBW) CENTRAL IV Access: PICC (05/18/24) Estimated Nutritional Needs: HBE: 1153 Stress Factor: 1.2-1.4 Total Calories/day: 1952-8456 Protein (amino acids): 1.3-1.6 grams/kg Protein (Amino acids): 66-81 grams/day Measured Energy Needs: Respiratory Quotient: 06/07/2024 Plan/Recommendation: Labs reviewed. Na remains low. All other electrolytes and BG WNL. Continue goal TPN as below with Na increased to 90 mEq/L. Will continue to monitor and assess PO intake. GOAL TPN: DEXTROSE: 18% (281 g/day CHO) AMINO ACIDS: 5% (78 g/day - 1.51 g/kg/day Amino acids) C:A 1:3, K @ 30 mEq/L, Na @ 90 mEq/L @ 65 ml/hr, with 30mg/day thiamine, MVI, and Trace elements Every other day 250ml 20% SMOF lipids 1517 Total kcal/day - 29.8 kcal/kg/day GUR: 3.83 Replace electrolytes outside of TPN Calcium and/or Phosphorus supplements MUST be in a separate line from the TPN to avoid precipitation Obtain BMP, magnesium, and Phos daily x 3days and then at least twice weekly Obtain LFT and TGLY weekly I have monitored the TPN therapy, including the labs, and have communicated any modifications with the primary medical/surgical team. Continue current TPN formula and lipid regimen as above. I have communicated the TPN plan with the IV room. Thank you! Db Kline, PharmD Candidate 2024 Preceptor - Moni Méndez, MagalieD [1] Patient Active Problem List Diagnosis Anxiety and depression COPD (chronic obstructive pulmonary disease) ([facility]) CAD, multiple vessel NSTEMI (non-ST elevated myocardial infarction) ([facility] [facility]) GERD (gastroesophageal reflux disease) Leukocytosis Hyperlipidemia THOM (obstructive sleep apnea) S/P CABG x 4 Hypertension Cardiac volume overload Hypoglycemia Nausea with vomiting Acute blood loss anemia (ABLA) Gastric perforation ([facility]/H[facility]) On total parenteral nutrition (TPN) Ileus ([facility]) Electrolyte abnormality Colon perforation ([facility]) Post-op pain Delirium [2] Past Medical History: Diagnosis Date Anxiety COPD (chronic obstructive pulmonary disease) ([facility]) 05/01/2024 Continue Duo nebs q6 SPO2 goal >88% Depression GERD (gastroesophageal reflux disease) 05/01/2024 Continue Protonix 40 mg daily Hyperkalemia 05/06/2024 Now resolved, pt with hypokalemia requiring replacement On mechanically assisted ventilation ([facility]) 05/06/2024 Arrived to ICU intubated 05/07 extubated to 4LNC 05/08 resolved Tobacco use 05/01/2024 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 Complicates all aspects of care and recovery Tremor 05/01/2024 Continue home primidone 50 mg BID [3] Past Surgical History: Procedure Laterality Date ABDOMINAL ADHESION SURGERY SECTION, CLASSIC CHOLECYSTECTOMY CORONARY ARTERY BYPASS GRAFT 05/06/2024 Coronary artery bypass grafting x4 with CHOWDARY to LAD as a free graft, reverse saphenous vein graft sequential to ramus intermedius artery then to obtuse marginal artery 1, reverse saphenous vein graftto PDA.(Reda) HAND SURGERY Right Tendon repair SHOULDER SURGERY Cosigned by Marysol Hurtado, PharmD at 06/07/2024 3:14 PM EDT Associated attestation - Marysol Hurtado PharmD - 06/07/2024 3:14 PM EDT I have reviewed the students assessment and plan and agree with the below statements * Progress Notes - Dulce Alamo APRN - 06/07/2024 10:45 AM EDT CVT Progress Note 24 Hour Events/HPI: Patient continues to report intense ABD cramping with any food, including soft food like pudding. She says she thinks she is doing better today than yesterday. Seen by surgery yesterday, both drains remain. Wound vac changed yesterday and per surgery, continue changing on MWF. Review of Systems: A complete ROS was obtained. All were negative except as noted in HPI. Objective: All laboratory data, images, tracings, and vital sign data for past 24 hours are personally reviewed unless otherwise noted. @PATIENTWT@ , Weight: 61.1 kg (134 lb 12.8 oz) , Ht Readings from Last 1 Encounters: 06/04/24 1.549 m (5' 0.98 ) , Body mass index is 23.51 kg/m??. VITALS (last 24h) Temp: [36.4 ??C (97.5 ??F)-37.1 ??C (98.7 ??F)] 36.7 ??C (98 ??F) Heart Rate: [84-91] 91 Resp: [16-21] 21 BP: (104-127)/(65-77) 120/75 Visit Vitals BP 120/75 (BP Location: Right arm, Patient Position: Lying) Pulse 91 Temp 36.7 ??C (98 ??F) (Oral) Resp 21 Ht 1.549 m (5' 0.98 ) Wt 56.4 kg (124 lb 5.4 oz) SpO2 97% BMI 23.51 kg/m?? Smoking Status Every Day BSA 1.56 m?? I & O Summary Intake/Output Summary (Last 24 hours) at 06/07/2024 1045 Last data filed at 06/07/2024 0615 Gross per 24 hour Intake 2260 ml Output 2010 ml Net 250 ml LABS CBC WBC 16.90 (H) Hb 9.0 (L) Plt 529 (H) Hct 28.4 (L) BMP Na 133 (L) Cl 99 BUN 13 Glu 124 (H) K 3.7 Co2 26 Cr 0.44 (L) Ca 7.8 (L) Mg 1.9 MEDICATIONS acetaminophen, 500 mg, Oral, q6h LINDA aspirin, 81 mg, Oral, Daily buPROPion XL, 300 mg, Oral, Daily citalopram, 40 mg, Oral, Daily fat emulsion fish/plant based, 250 mL, Intravenous, Every other day heparin (porcine), 5,000 Units, Subcutaneous, q8h lidocaine, 2 patch, Apply externally, q24h melatonin, 6 mg, Oral, Nightly methocarbamol, 500 mg, Oral, TID metoprolol tartrate, 25 mg, Oral, BID pantoprazole, 40 mg, Oral, Daily piperacillin-tazobactam, 4.5 g, Intravenous, q6h potassium chloride, 40 mEq, Oral, Once primidone, 50 mg, Oral, BID rosuvastatin, 40 mg, Oral, Nightly sodium chloride, 10 mL, Intravenous, q12h sodium chloride, 10 mL, Intravenous, q12h Adult 2-in-1 TPN, 65 mL/hr, Last Rate: 65 mL/hr (06/06/242110) PRN medications: benzocaine-menthol, calcium carbonate, HYDROmorphone OR HYDROmorphone, hydrOXYzine pamoate, ipratropium-albuterol, [DISCONTINUED] ondansetron ODT OR ondansetron OR [DISCONTINUED] ondansetron, oxyCODONE OR oxyCODONE, phenol, simethicone, sodium chloride, sodium chloride, Insert peripheral IV AND Saline lock IV AND sodium chloride AND sodium chloride, sodium chloride No echocardiogram results found for the past 14 days Physical Exam: GENERAL: WD, WN, NAD. EYES: No scleral icterus or conjunctivitis HENT: Atraumatic, normocephalic, nares patent, mucus membranes moist NECK: Supple, trachea midline RESP/CHEST: Symmetric expansion; non labored. CTA bilaterally CARD: Regular rate and rhythm, normal S1 and S2, no murmur, rub, or gallop, Pedal pulses palpable, no JVD. No edema. Sternum stable. Sternal incision with edges approx, CDI. CT/mediastinal site(s) with single suture each, intact. EVH site(s) CDI. Extremities: No cyanosis or clubbing. GI: Soft, Nontender, nondistended. BS present x 4 quadrants. SKIN: No rash. Midline ABD incision with wound vac in place. LENA x 1 to left ABD. Colostomy with ostomy bag in place. Left upper ABD IR placed drain (accordion) remains intact. LUE PICC DSG is CDI. NEURO: AAO. Motor intact and no focal deficits PSYCH: Mood and affect congruent and appropriate to situation. Assessment and Plan: Patient is a 53 yo female with a pmh of HTN, HLD, COPD, GERD, tobacco use, and CAD s/p 4v CABG on 05/06 with post op course complicated by ileus s/p exploratory lap, extended left colectomy, and end colostomy creation on 05/23 for colonic perforation, followed by US guided drain placement by IR on 06/04 for fluid collection in the ABD (perislpenic). CAD, Multiple Vessel NSTEMI (Non-ST Elevated Myocardial Infarction) - Patient presented to OSH on 05/01/24 with chest pain where tropon levels were 0.05 > 0.23 > 0.16 & LHC reveal mvCAD - S/p CABG x [address] Austin on 05/06/2024 - Continue asa, statin, metoprolol - Routine post cardiac surgery care: Sternal precautions x 6 weeks, PT, bowel regimen to prevent constipation and aggressive pulmonary toilet. Gastric Perforation vs Colonic Perforation Ileus - S/p ex lap with left colon resection with end colostomy creation with blue surgery on 05/23/2024 - 06/01: CT abd per Blue surgery giving increasing WBC - 06/02: CT yd with abscess. Started on zosyn yd evening. IR consulted for fluid drainage. Plan for IR procedure on Tuesday - 06/04: S/p Acordian drain placement with IR this AM. Fluid cx pending. Continue zosyn. Blue surg recs: continue zosyn at least 4 days s/p IR drain placement or change abx based on culture data Leukocytosis Abdominal Fluid Collection - 05/31: WBC 26.51 - 06/01: WBC 33.03. CT abd per blue surgery - 06/02: WBC 33.90. CT yd with fluid collection. Started on zosyn yd evening. IR consulted for fluiddrainage. - 06/03: WBC 20.40. Plan for IR procedure tomorrow - 06/04: WBC 22.10. S/p Drain placement his AM. Fluid cx pending. Continue zosyn. Blue surg recs: continue zosyn at least 4 days s/p IR drain placement or change abx based on culture data. - 06/05: C/O intense ABD pain after eating any food; surgery reassed with recs for no carbonated beverages and encourage mobility, KUB shows gas distribution. WBC count 19.81 - 06/06: Pain continues after eating. WBC count 24.98 - Afebrile, surgery is following - [place] (two black + bridge) MWF by nursing - Gas pain, ostomy functioning appropriately - Follow SGE LENA output (superior drain in fluid cavity near pancreas) - Monitor Anxiety and Depression - Continue home bupropion - Continue home citalopram - Vistaril prn COPD (Chronic Obstructive Pulmonary Disease) - Duo nebs prn - Wearing O2 at 2L/M via NC GERD (Gastroesophageal Reflux Disease) - 05/07 extubated, not on home PPI, dc'd - 05/08 pt denies any GERD symptoms - 05/09 + PPI for reflux - 05/10 docusate, metoclopramide, miralax, senna, simethicone, continue NG to low intermitted, CLD for pt comfort, passing gas - 05/11 as above denies reflux today NG clamp trial - 05/14 PPI per blue surgery rec for blood tinged NG output - NG now removed Hyperlipidemia - Chol 247, trig 271, HDL 36, LDL 160 - Rosuvastatin 40mg po daily THOM (Obstructive Sleep Apnea) - Refusing home CPAP Hypertension - Metoprolol tartrate 25mg po BID Cardiac Volume Overload - Diuresis prn Hypoglycemia - Resolved once TPN started Nausea with Vomiting - Prn zofran - Promote po intake Acute Blood Loss Anemia (ABLA) - H/H 10.2/31.0 - 06/01: H/H 9.7/29.3 - H/H currently 9.0/28.4 - Monitor and transfuse prn Gastric Perforation vs Colonic Perforation Ileus - S/p ex lap with left colon resection with end colostomy with blue surgery on 05/23 - 06/01: CT abd per Blue surgery giving increasing WBC - 06/02: CT yd with abscess. Started on zosyn yd evening. IR consulted for abscess drainage. Plan for IR procedure on Tuesday - 06/04: S/p Drain placement this AM. Fluid cx pending. Continue zosyn. Blue surg recs: continue zosyn at least 4 days s/p IR drain placement or change abx based on culture data On Total Parenteral Nutrition (TPN) - Started on 05/20 - 05/31: Calorie count completed and demonstrated pt was only meeting 12-13% of calorie requirements. Repeat calorie count in progress, to end today 06/07 - Continue TPN - Promote PO intake Electrolyte Abnormality - Monitor and treat Post-op Pain - Abdominal tenderness and pain - MMPC Delirium - Delirium precautions - Resolved Plan: Encourage PO intake Repeat calorie count in progress,to end today 06/07 Continue TPN pending assessment of PO intake adequacy S/p drain placement in IR 06/04 Continue zosyn until at least 4 days after drain placed in IR Follow cultures Cardiothoracic Surgery [phone] * Progress Notes - Heather Ram - 06/07/2024 8:28 AM EDT Case Management Adult Progress Note Rere Hunter 53 y.o. female CSN: [id number] Admission: 05/01/2024 11:01 PM Primary Problem: CAD, multiple vessel Anticipated Discharge Date: TBD Has Discharge Plans Changed? No Housing Circumstances: Not Applicable Housing Circumstances Action Taken: Other N/A Additional Comments SW spoke with primary team this date re: pt's plan of care. According to primary team, this pt is not medically stable for DC this date and is not anticipated to be stable within 72 hrs. Pt continuesto require TPN, calorie count in process. Pt is still on IV Zosyn. See medical notes for more detail. No further SW concerns identified at this time. SW will monitor pt's progress and will follow up with DC planning and needs as appropriate. NAYA Albarran * Progress Notes - Lester Lazo RN - 06/06/2024 12:46 PM EDT Images from the original note were not included. Wound Care Consult Visit Date: 06/06/2024 Patient Name: Rere Hunter Date of : 1970 Admit Date: 05/01/2024 Reason for Consult: wound vac Wound History: past medical history of HTN, HLD, COPD, GERD, tobacco use, and CAD who presented forchest pain on 05/01 She had a 4v CABG on 05/06 complicated by post-op ileus. SGE consulted for contained perforation (stomach versus colon) seen on CT. New colostomy Wound Assessment: Wound 05/23/24 Surgical Abdomen Upper (Active) Date First Assessed/Time First Assessed: 05/23/24 1419 Hand Hygiene Completed: Yes Primary Wound Type: Surgical Location: Abdomen Wound Location Orientation: Upper Assessments 06/06/2024 10:30 AM Wound Image Wound Assessment Red;Granulation Margins Well-defined edges Jacey-Wound Assessment Intact Drainage Description Serosanguineous Drainage Amount Scant Treatments Cleansed;Site care Dressing Vacuum dressing Number of Packing Pieces Used 1 Dressing Changed Changed Dressing Status Intact Active Orders Date Order Priority Status Authorizing Provider 05/31/24 1255 Wound VAC Dressing Changes (Non-Instillation) Upper Abdomen Surgical Routine Active Maite Austin MD - Who is to perform dressing change:: Nursing Staff - Pressure Settings:: Continuous - mmHg:: 125 mmHg Wound Team Summary Assessment: pt seen for ostomy educ and wound vac dressing change as they over lap, 2 black foam removed, good red granulation conts sheridan in the center, jacey wound prepped with cavalon and drape, Khushboo strip at edge near ostomy for seal, 1 black foam applied with good seal @ 125 Wound Team Plan: Wound care will follow up at regular intervals while inpatient; bedside nursing tofollow wound care recommendations as ordered and please re- consult sooner for new changes or concerns prior to follow up. Lester Lazo RN CWOCN 06/06/2024 12:46 PM * Progress Notes - Lester Lazo RN - 06/06/2024 12:43 PM EDT Images from the original note were not included. Ostomy Progress Note Visit Date: 06/06/2024 Patient Name: Rere Hunter Date of : 1970 Education Discussed normal stoma characteristics. Patient provided return demonstration of how to open and close the pouch. other education. Pt participated in the appliance change needed occasional assistance, struggling with cutting and snapping together the wafer and bag will try again on Tuesday, will see if pt desiresa one piece Wound Ostomy Assessment: Colostomy Transverse RUQ (Active) 05/23/24 RUQ Present on Admission: Earliest Known Present: Placed by External Staff?: Inserted by: Bartolome Hand Hygiene Completed: Yes Colostomy Type: Transverse Stoma Size (cm): Earliest Known Removed: Removal Reason : Wound Image 06/06/24 1030 Stomal Appliance 2 piece;Flat Barrier/Pouch;Flat Ring;Barrier Clinchco/Wipe 06/06/24 1030 Site Assessment Intact;Moist;Raised;Red 06/06/24 1030 Peristomal Assessment Clean;Intact 06/06/24 1030 Treatment Bag change;Site care 06/06/24 1030 Output (mL) 250 mL 06/06/24 0400 Gastric Output Appearance Watery 06/06/24 1030 Gastric Output Color Brown 06/06/24 1030 Lester Lazo RN CWOCN 06/06/2024 12:43 PM * Progress Notes - Dulce Alamo APRN - 06/06/2024 12:08 PM EDT CVT Progress Note 24 Hour Events/HPI: Patient reports little improvement in ability to eat anything without having stomach pain. Surgery is following. Review of Systems: A complete ROS was obtained. All were negative except as noted in HPI. Objective: All laboratory data, images, tracings, and vital sign data for past 24 hours are personally reviewed unless otherwise noted. @PATIENTWT@ , Weight: 61.1 kg (134 lb 12.8 oz) , Ht Readings from Last 1 Encounters: 06/04/24 1.549 m (5' 0.98 ) , Body mass index is 23.3 kg/m??. VITALS (last 24h) Temp: [36.4 ??C (97.5 ??F)-37.4 ??C (99.4 ??F)] 36.5 ??C (97.7 ??F) Heart Rate: [80-95] 87 Resp: [14-21] 16 BP: (93-123)/(61-83) 117/67 Visit Vitals BP 117/67 (BP Location: Right arm, Patient Position: Lying) Pulse 87 Temp 36.5 ??C (97.7 ??F) (Oral) Resp 16 Ht 1.549 m (5' 0.98 ) Wt 55.9 kg (123 lb 3.8 oz) SpO2 94% BMI 23.30 kg/m?? Smoking Status Every Day BSA 1.55 m?? I & O Summary Intake/Output Summary (Last 24 hours) at 06/06/2024 1208 Last data filed at 06/06/2024 1010 Gross per 24 hour Intake 3189 ml Output 2795 ml Net 394 ml LABS CBC WBC 24.98 (H) Hb 9.2 (L) Plt 605 (H) Hct 29.5 (L) BMP Na 130 (L) Cl 98 BUN 11 Glu 406 (H) K 4.3 Co2 23 Cr 0.50 (L) Ca 7.5 (L) Mg 2.1 MEDICATIONS acetaminophen, 500 mg, Oral, q6h LINDA aspirin, 81 mg, Oral, Daily buPROPion XL, 300 mg, Oral, Daily citalopram, 40 mg, Oral, Daily fat emulsion fish/plant based, 250 mL, Intravenous, Every other day heparin (porcine), 5,000 Units, Subcutaneous, q8h lidocaine, 2 patch, Apply externally, q24h melatonin, 6 mg, Oral, Nightly methocarbamol, 500 mg, Oral, TID metoprolol tartrate, 25 mg, Oral, BID pantoprazole, 40 mg, Oral, Daily piperacillin-tazobactam, 4.5 g, Intravenous, q6h potassium chloride, 40 mEq, Oral, Once primidone, 50 mg, Oral, BID rosuvastatin, 40 mg, Oral, Nightly sodium chloride, 10 mL, Intravenous, q12h sodium chloride, 10 mL, Intravenous, q12h Adult 2-in-1 TPN, 65 mL/hr, Last Rate: 65 mL/hr (06/05/242157) PRN medications: benzocaine-menthol, calcium carbonate, HYDROmorphone OR HYDROmorphone, hydrOXYzine pamoate, ipratropium-albuterol, [DISCONTINUED] ondansetron ODT OR ondansetron OR [DISCONTINUED] ondansetron, oxyCODONE OR oxyCODONE, phenol, simethicone, sodium chloride, sodium chloride, Insert peripheral IV AND Saline lock IV AND sodium chloride AND sodium chloride, sodium chloride No echocardiogram results found for the past 14 days Physical Exam: GENERAL: WD, WN, NAD. EYES: No scleral icterus or conjunctivitis HENT: Atraumatic, normocephalic, nares patent, mucus membranes moist NECK: Supple, trachea midline RESP/CHEST: Symmetric expansion; non labored. CTA bilaterally CARD: Regular rate and rhythm, normal S1 and S2, no murmur, rub, or gallop, Pedal pulses palpable, no JVD. No edema. Sternum stable. Sternal incision with edges approx, CDI. EVH site(s) CDI. Extremities: No cyanosis or clubbing. GI: Soft, Nontender, nondistended. BS present x 4 quadrants. SKIN: No rash. Midline abd incision with wound vac in place. LENA x 1 to left abd. Colostomy with ostomy bag in place. Left upper abd IR placed drain (accordion). LUE PICC DSG is CDI. NEURO: AAO. Motor intact and no focal deficits PSYCH: Mood and affect congruent and appropriate to situation Assessment and Plan: CAD, Multiple Vessel NSTEMI (Non-ST Elevated Myocardial Infarction) - Patient presented to OSH on 05/01/24 c/o chest pain - Diagnosed at OSH with elevated troponins of 0.05 to 0.23 to 0.16 C reveal mvCAD - S/p CABG x [address] Austin on 05/06/2024 - Continue asa, statin, metoprolol - Routine post cardiac surgery care: Sternal precautions x 6 weeks, PT, bowel regimen to prevent constipation and aggressive pulmonary toilet. Gastric Perforation Colonic Perforation Ileus - S/p ex lap with left colon resection with end colostomy creation with blue surgery on 05/23/2024 - 06/01: CT abd per Blue surgery giving increasing WBC - 06/02: CT yd with abscess. Started on zosyn yd evening. IR consulted for abscess drainage. Plan for IR procedure on Tuesday - 06/04: S/p Acordian drain placement with IR this AM. Fluid cx pending. Continue zosyn. Blue surg recs: continue zosyn at least 4 days s/p IR drain placement or change abx based on culture data Leukocytosis Abdominal Abscess - 05/31: WBC 26.51 - 06/01: WBC 33.03. CT abd per blue surgery - 06/02: WBC 33.90. CT yd with abscess. Started on zosyn yd evening. IR consulted for abscess drainage. - 06/03: WBC 20.40. Plan for IR procedure tomorrow - 06/04: WBC 22.10. S/p Drain placement his AM. Fluid cx pending. Continue zosyn. Blue surg recs: continue zosyn at least 4 days s/p IR drain placement or change abx based on culture data. - 06/05: C/O intense ABD pain after eating any food; surgery to reassess, KUB shows gas distribution. WBC count 19.81 - 06/06: Pain continues after eating. WBC count 24.98 - Afebrile, surgery is following - [place] (two black + bridge) MWF by nursing - Gas pain, ostomy functioning appropriately - Follow SGE LENA output (superior drain in abscess cavity near pancreas) - Monitor Anxiety and Depression - Continue home bupropion - Continue home citalopram COPD (Chronic Obstructive Pulmonary Disease) - Duo nebs prn - Wearing O2 at 2L/M via [place] GERD (Gastroesophageal Reflux Disease) - 05/07 extubated, not on home PPI, dc'd - 05/08 pt denies any GERD symptoms - 05/09 + PPI for reflux - 05/10 docusate, metoclopramide, miralax, senna, simethicone, continue NG to low intermitted, CLD for pt comfort, passing gas - 05/11 as above denies reflux today NG clamp trial - 05/14 PPI per blue surgery rec for blood tinged NG output - NG now removed Hyperlipidemia - Chol 247, trig 271, HDL 36, LDL 160 - Rosuvastatin 40mg po daily THOM (Obstructive Sleep Apnea) - Refusing home CPAP Hypertension - Metoprolol tartrate 25mg po BID Cardiac Volume Overload - Diuresis prn Hypoglycemia - Resolved once TPN started Nausea with Vomiting - Prn zofran - Promote po intake Acute Blood Loss Anemia (ABLA) - H/H 10.2/31.0 - 18: H/H 9.7/29.3 - 20: H/H 9.2/28.8 - 21: H/H 9.4/29.3 - 22: H/H 9.3/29.0 - Monitor and transfuse prn Gastric Perforation Colonic Perforation Ileus - S/p ex lap with left colon resection with end colostomy with blue surgery on 05/23 - 06/01: CT abd per Blue surgery giving increasing WBC - 06/02: CT yd with abscess. Started on zosyn yd evening. IR consulted for abscess drainage. Plan for IR procedure on Tuesday - 06/04: S/p Drain placement this AM. Fluid cx pending. Continue zosyn. Blue surg recs: continue zosyn at least 4 days s/p IR drain placement or change abx based on culture data On Total Parenteral Nutrition (TPN) - Started on 05/20 - 05/31: Calorie count completed and demonstrated pt was only meeting 12-13% of calorie requirements. Repeat calorie count in progress - Continue TPN. - Promote PO intake Electrolyte Abnormality - Monitor and treat Post-op Pain - Abdominal tenderness and pain - MMPC Delirium - Delirium precautions Plan: Encourage PO intake Calorie count in progress Continue TPN pending assessment of PO intake adequacy Continue zosyn S/p drain placement in IR 06/04 Follow cultures Cardiothoracic Surgery [id number] * Progress Notes - Carmelita Snyder MD - 06/06/2024 10:51 AM EDT 06/06/24 Rere Hunter HPI CONSULT: colon perforation and fluid collection between stomach and colon 53F HTN, HLD, COPD, GERD, tobacco use, and CAD s/p 4v CABG on 05/06 05/23: ex lap, extended L colectomy and end colostomy creation (Bartolome) 06/04: IR-guided drain Interval: VSS. L abdominal LENA 5 (10), LUQ IR acordion 40 (50), RUQ Colsotomy 275 (440). Discussed that her kub showed gas distribution. Her bowels are moving appropriately. Encouraged to stop drinking arnold melania and other carbonated beverages. Patient is ambulating. LENA will low output, but still purulent, so will keep it in. Edited by: Carmelita Snyder MD at 06/06/2024 1055 Relevant review of systems was obtained as able and is negative unless stated above in HPI. Vital signs: Vitals: 06/06/24 0800 BP: 93/63 Pulse: 80 Resp: 14 Temp: 36.4 ??C (97.5 ??F) SpO2: 96% Physical Exam Constitutional: General: She is not in acute distress. HENT: Head: Normocephalic. Eyes: Extraocular Movements: Extraocular movements intact. Cardiovascular: Rate and Rhythm: Normal rate. Pulses: Normal pulses. Pulmonary: Effort: Pulmonary effort is normal. Abdominal: General: Abdomen is flat. There is distension. Palpations: Abdomen is soft. Comments: LENA with purulent drainage. IR with murky serosang Musculoskeletal: Cervical back: Normal range of motion. Skin: General: Skin is warm. Neurological: Mental Status: She is alert and oriented to person, place, and time. Psychiatric: Behavior: Behavior normal. Intake/Output Summary (Last 24 hours) at 06/06/2024 1057 Last data filed at 06/06/2024 1010 Gross per 24 hour Intake 3429 ml Output 3245 ml Net 184 ml Lines/Drains/Tubes: Patient Lines/Drains/Airways Status Active Airway None Output by Drain (mL) 06/04/24 0700 - 06/04/24 1859 06/04/24 1900 - 06/05/24 0659 06/05/24 0700 - 06/05/24 1859 06/05/24 1900 - 06/06/24 0659 06/06/24 0700 - 06/06/24 1057 Closed/Suction Drain 1 Left Abdomen Bulb 19 Fr. 5 5 5 0 Closed/Suction Drain 3 Left LUQ Accordion 8 Fr. 20 30 40 0 Labs in last 18 hours: CBC WBC 24.98 (H) Hb 9.2 (L) Plt 605 (H) Hct 29.5 (L) ANC ?? INR ??, PTT ??, Anti-Xa ?? MCV 95 BMP Na 130 (L) Cl 98 BUN 11 Glu 406 (H) K 4.3 Co2 23 Cr 0.50 (L) Ca 7.5 (L) iCa ?? Mg 2.1, Phos ?? Lactate ?? LFT AST ?? AlkPhos ?? T Prot ?? ALK ?? Bili ?? Alb ?? D.Bili ?? Lab Trends: H/H Results from last 7 days Lab Units 06/06/24 0403 06/05/24 0612 06/04/24 0556 HEMOGLOBIN g/dL 9.2* 9.3* 9.4* HEMATOCRIT % 29.5* 29.0* 29.3* INR Cr Results from last 7 days Lab Units 06/06/24 0403 06/05/24 0612 06/04/24 0556 CREATININE mg/dL 0.50* 0.50* 0.53* Medications reviewed. Vital signs reviewed. Labs reviewed. Radiography reviewed. Assessment and Plan: Medical Problems and Relevant Plans Hospital Problems POA * (Principal) CAD, multiple vessel Yes Overview Addendum 05/23/2024 8:44 AM by Marybel Suarez APRN Patient presented to OSH on 05/01/24 c/o chest pain, C reveal mvCAD S/p CABG with Dr. Austin on 05/07 Anxiety and depression Yes Overview Addendum 05/23/2024 8:43 AM by Marybel Suarez APRN Continue home bupropion XL 300 mg daily Continue home citalopram 40 mg daily Continue PRN hydroxyzine 25 mg q6 COPD (chronic obstructive pulmonary disease) ([facility]) Yes Overview Addendum 05/23/2024 8:43 AM by Marybel Suarez APRN Duo nebs q6 Wean O2 for SPO2 goal >88% NSTEMI (non-ST elevated myocardial infarction) ([facility] [place]) Yes Overview Addendum 05/22/2024 11:00 AM by Jose Aburto MD Diagnosed at OSH with elevated troponins of 0.05 to 0.23 to 0.16 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, 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 Repeat troponins pending 3/24 POD 1 4V CABG 05/09 EKG ordered and reviewed no signs of ST changes 05/10 ST 105 05/11 ST 100-105 GERD (gastroesophageal reflux disease) Yes Overview Addendum 05/14/2024 2:06 PM by Cydney Luu MD Continue Protonix 40 mg daily 05/07 extubated, no on home PPI dc'd 05/08 pt denies any GERD symptoms 05/09 + PPI for reflux 05/10 docusate, metoclopramide, miralax, senna, simethicone, continue NG to low intermitted, CLD forpt comfort, passing gas 05/11 as above denies reflux today NG clamp trial 05/14 PPI per blue surgery rec for blood tinged NG output Leukocytosis Yes Overview Addendum 05/23/2024 8:50 AM by Marybel Suarez, ARASH Remains febrile with elevated EBC Cultures ordered and pending Hyperlipidemia Yes Overview Signed 05/23/2024 8:47 AM by Marybel Suarez, AUTOMOTIVE PORTER Restart statin when no longer NPO THOM (obstructive sleep apnea) Yes Overview Addendum 05/23/2024 8:45 AM by Marybel Suarez, AUTOMOTIVE PORTER Refusing home CPAP remains on NC S/P CABG x 4 Not Applicable Overview Addendum 05/23/2024 8:45 AM by Marybel Suarez, ARASH 05/06 4vCABG w/ Dr. Austin Aspirin, statin, beta stacey as clinically appropriate Hypertension Yes Overview Addendum 05/23/2024 8:47 AM by Marybel Suarez, AUTOMOTIVE PORTER Metop IV while NPO Restart PO metop when appropriate Cardiac volume overload No Overview Addendum 05/18/2024 10:24 AM by Sidney Jackson MD Diuresis as clinically indicated Hypoglycemia No Overview Addendum 05/23/2024 8:46 AM by Marybel Suarez, AUTOMOTIVE PORTER Resolved once TPN started Nausea with vomiting No Overview Addendum 05/28/2024 8:26 AM by Sidney Jackson MD TPN running Advance PO diet as able Acute blood loss anemia (ABLA) No Overview Addendum 05/23/2024 8:43 AM by Marybel Suarez, AUTOMOTIVE PORTER Lab Results Component Value Date HGB 9.0 (L) 05/23/2024 CTM with daily labs Transfuse as indicated Gastric perforation (CMS/HCC) No Overview Addendum 05/28/2024 8:26 AM by Sidney Jackson MD colonic perforation. S/p ex lap with blue surgery on 05/23 On total parenteral nutrition (TPN) No Overview Addendum 05/28/2024 11:41 AM by Sidney Jackson MD Started on 05/20 Obtaining PO calorie count. Will DC TPN when able. Ileus (CMS/HCC) No Overview Addendum 05/28/2024 8:25 AM by Sidney Jackson MD S/p colectomy & end colostomy 05/23 2 perforation Electrolyte abnormality Yes Overview Signed 05/23/2024 8:50 AM by Marybel Suarez APRN - monitor and replace prn Post-op pain Unknown Overview Addendum 05/25/2024 10:12 AM by Dave Baird DO Abdominal tenderness and pain 11/23 Increase dilaudid IV ketamine Delirium Unknown Overview Signed 05/29/2024 2:56 PM by Sidney Jackson MD Hospital delirium Delirium precautions Colon perforation (CMS/HCC) Unknown Overview Addendum 05/24/2024 11:04 AM by Jose Aburto MD Noted on CT scan 05/23/24 To OR with blue surgery S/p left colectomy and end colostomy Plan: [ ] f/u [place] images - [place] (two black + bridge) MWF by nursing - gas pain, ostomy functioning appropriately - Follow SGE LENA output (superior drain in abscess cavity near pancreas) - zosyn 4 days after IR drain placement Edited by: Carmelita Snyder MD at 06/06/2024 1057 Carmelita Snyder MD Cosigned by Graciela Nelson MD at 06/11/2024 4:43 PM EDT Associated attestation - Graciela Nelosn MD - 06/11/2024 4:43 PM EDT I saw and evaluated the patient with the resident/fellow. I discussed the case with the resident/fellow and agree with the findings and plan as documented. * Progress Notes - Marysol Hurtado PharmD - 06/06/2024 10:05 AM EDT Pharmacist TPN Progress Note Patient: Rere Hunter Age: 53 y.o. Admission Date: [id number] Subjective/Objective/Hospital Course: 53 y.o. female with PMHx of CAD, HTN, COPD, GERD, tremor, anxiety, depression, and tobacco use, who is currently hospitalized under the care of the CVT surgery team after having a CABG on 05/06/24. Since surgery she has developed nausea, vomiting, and abdominal pain with imaging findings consistent with ileus. Patient has had inadequate energy intake likely related to ileus and has been NPO x [address] 05/20 showed intraabdominal fluid adjacent to stomach concerning for possible perforation. UGI with no perforartion. TPN consult for ileus + possible leak. -- 05/17: TPN consult placed -- 05/19: TPN initiated -- 05/23: CT overnight with PO contrast more convincing for colonic perforation instead of stomach perf. OR with general surgery for left hemicolectomy and colostomy creation. -- 05/25: CLD ordered late afternoon -- 05/28: PO diet ordered -- 05/29: S/P Exploratory laparotomy, extensive lysis of adhesions, left colectomy(performed by colorectal surgery), end colostomy creation, abdominal washout, application of negative pressure wound VAC therapy to skin and soft tissues on 05/23 d/t colon perforation. -- 05/31: Calorie count results: 3-day ave = ~206kcal; 6g protein. Patient meeting ~12-13%kcal; 8% protein needs. -- 06/02: CT scan showed abscess, made NPO for potential drainage soon -- 06/03: pending IR drain on 06/04, will be NPO prior -- 06/04: CT-guided fluid collection drainage with tube placement, Reg diet, start calorie count --06/05: Plan to continue TPN until complete calorie count (~72 hrs from 06/04) --06/06: Eating about 25% of meals but with sharp pain - surgery to reassess Problem List[1] Medical History[2] Surgical History[3] Allergies: Latex and Oxycodone LABS: Results from last 7 days Lab Units 06/06/24 0403 06/05/24 0612 06/04/24 0556 06/03/24 0108 06/02/24 0708 06/02/24 0102 06/01/24 0120 05/31/24 0250 GLUCOSE mg/dL 406* 125* 105* 117* 111* 507* 495* 107* BUN mg/dL 11 13 12 12 13 11 12 13 CREATININE mg/dL 0.50* 0.50* 0.53* 0.48* 0.60 0.60 0.54* 0.52* SODIUM mmol/L 130* 133* 133* 130* 130* 125* 126* 129* POTASSIUM mmol/L 4.3 3.6 3.8 3.3* 3.6 4.8 4.9 3.7 CHLORIDE mmol/L 98 99 101 98 97 93* 95* 95* CO2 mmol/L 23 21* 20* 20* 25 CALCIUM mg/dL 7.5* 7.7* 7.7* 7.7* 7.9* 7.9* 8.0* 8.3* PHOSPHORUS mg/dL -- -- -- -- -- 5.8* 5.2* 4.4 MAGNESIUM mg/dL 2.1 2.0 2.1 2.0 -- 2.3 2.3 2.0 Results from last 7 days Lab Units 06/06/24 0403 06/05/24 0612 06/04/24 0556 06/03/24 0108 06/02/24 01006/01/24 0120 05/31/24 0250 WBC 10*3/uL 24.98* 19.81* 22.10* 20.40* 33.90* 33.03* 26.51* HEMOGLOBIN g/dL 9.2* 9.3* 9.4* 9.2* 9.2* 9.7* 10.2* HEMATOCRIT % 29.5* 29.0* 29.3* 28.8* 28.7* 29.3* 31.0* PLATELETS 10*3/uL 605* 643* 716* 689* 702* 644* 670* Results from last 7 days Lab Units 06/02/24 0102 06/01/24 0120 05/31/24 0250 ALBUMIN g/dL 2.2* 2.2* 2.5* Nutrition Labs: Lab Results Component Value Date TRIG 76 05/19/2024 BILITOT 0.9 05/23/2024 ALBUMIN 2.2 (L) 06/02/2024 PREALBUMIN 16.8 (L) 06/03/2024 HGBA1C 5.3 05/01/2024 CRP 225.3 (H) 05/17/2024 IRON 25 (L) 05/14/2024 TIBC 156 (L) 05/14/2024 Microbiology Results Procedure Component Value Units Date/Time Blood Culture (Aerobic/Anaerobet Set) [[id number]] Collected: 05/23/24 1020 Order Status: Completed Specimen: Blood, Venous Updated: 05/24/24 1101 Culture No growth at day 1 Fungal Blood Culture [[id number]] Collected: 05/17/241812 Order Status: Completed Specimen: Blood, Venous Updated: 05/24/24 0638 Culture No Fungal Growth at 1 Week AFB Blood Culture [[id number]] Collected: 05/17/241812 Order Status: Completed Specimen: Blood, Venous Updated: 05/24/24 0638 AFB Culture No Mycobacterial Growth at 1 Week Vitals: Visit Vitals BP 93/63 (BP Location: Right arm, Patient Position: Lying) Pulse 80 Temp 36.4 ??C (97.5 ??F) (Oral) Resp 14 Jaida Coma Scale Score: 15 Shaan Scale Score: 18 Oxygen Therapy: None (Room air) Skin Integrity: Other (Comment) (incisions) Edema: Generalized Wt Readings from Last 3 Encounters: 06/06/24 55.9 kg (123 lb 3.8 oz) 06/28/23 59 kg (130 lb) 04/26/23 62.6 kg (138 lb) Current Diet Order: Dietary Orders (From admission, onward) Start Ordered 06/04/24 1147 Adult diet Diet texture: Regular; Carbohydrate restriction: Consistent Carb 2 (80 gm max/meal); Fat restriction: Cardiac; GI: Ostomy Diet effective now Comments: NO SPICY FOODS NO ONIONS References: IDDSI Diet Texture Guide Question Answer Comment Diet texture Regular Carbohydrate restriction: Consistent Carb 2 (80 gm max/meal) Fat restriction: Cardiac GI Ostomy 06/04/24 1147 05/29/24 1449 Oral nutrition supplements (Adult Diet Panel) Until discontinued Question Answer Comment Supplement frequency: Breakfast Supplement frequency: Lunch Supplement frequency: Dinner Breakfast supplement: Roque Fruit Punch Quantity for Breakfast of Roque Fruit Punch Packet One Lunch supplement: Boost Very High Calorie Vanilla Quantity for Lunch of Boost Very High Calorie - Vanilla One Dinner supplement: Roque Fruit Punch Quantity for Dinner of Roque Fruit Punch Packet One 05/29/24 1448 Current Medications acetaminophen, 500 mg, Oral, q6h LINDA aspirin, 81 mg, Oral, Daily buPROPion, 150 mg, Oral, BID FOLLOWED BY buPROPion XL, 300 mg, Oral, Daily citalopram, 40 mg, Oral, Daily fat emulsion fish/plant based, 250 mL, Intravenous, Every other day heparin (porcine), 5,000 Units, Subcutaneous, q8h lidocaine, 2 patch, Apply externally, q24h melatonin, 6 mg, Oral, Nightly methocarbamol, 500 mg, Oral, TID metoprolol tartrate, 25 mg, Oral, BID pantoprazole, 40 mg, Oral, Daily piperacillin-tazobactam, 4.5 g, Intravenous, q6h potassium chloride, 40 mEq, Oral, Once primidone, 50 mg, Oral, BID rosuvastatin, 40 mg, Oral, Nightly Insert peripheral IV, , , Once AND Saline lock IV, , , Once AND sodium chloride, 10 mL, Intravenous, q12h AND sodium chloride, 10 mL, Intravenous, PRN sodium chloride, 10 mL, Intravenous, q12h Adult 2-in-1 TPN, 65 mL/hr, Last Rate: 65 mL/hr (06/05/24 0439) Current Anthropometrics: Height: 154.9 cm (5' 0.98 ) Weight: 61.1 kg (134 lb 12.8 oz) [place] body weight: 47.8 kg (105 lb 4.8 oz) Adjusted ideal body weight: 52.8 kg (116 lb 5.7 oz) (126.25%) of IBW Body mass index is 25.13 kg/m??. Adjusted wt: 50.9 kg (if over 125% of IBW) CENTRAL IV Access: PICC (05/18/24) Estimated Nutritional Needs: HBE: 1153 Stress Factor: 1.2-1.4 Total Calories/day: 1952-2078 Protein (amino acids): 1.3-1.6 grams/kg Protein (Amino acids): 66-81 grams/day Measured Energy Needs: Respiratory Quotient: 06/06/2024 Plan/Recommendation: Labs reviewed. Na low again today however, increasing PO intake. Allother electrolytes and BG WNL. Continue goal TPN as below. Will continue to monitor and assess PO intake. GOAL TPN: DEXTROSE: 18% (281 g/day CHO) AMINO ACIDS: 5% (78 g/day - 1.51 g/kg/day Amino acids) C:A 1:3, K @ 30 mEq/L @ 65 ml/hr, with 30mg/day thiamine, MVI, and Trace elements Every other day 250ml 20% SMOF lipids 1517 Total kcal/day - 29.8 kcal/kg/day GUR: 3.83 Replace electrolytes outside of TPN Calcium and/or Phosphorus supplements MUST be in a separate line from the TPN to avoid precipitation Obtain BMP, magnesium, and Phos daily x 3days and then at least twice weekly Obtain LFT and TGLY weekly I have monitored the TPN therapy, including the labs, and have communicated any modifications with the primary medical/surgical team. Continue current TPN formula and lipid regimen as above. I have communicated the TPN plan with the IV room. Thank you! Marysol Hurtado, PharmD PGY1 [employer] Available via secure chat [1] Patient Active Problem List Diagnosis Anxiety and depression COPD (chronic obstructive pulmonary disease) (CMS/HCC) CAD, multiple vessel NSTEMI (non-ST elevated myocardial infarction) (CMS/HCC) GERD (gastroesophageal reflux disease) Leukocytosis Hyperlipidemia THOM (obstructive sleep apnea) S/P CABG x 4 Hypertension Cardiac volume overload Hypoglycemia Nausea with vomiting Acute blood loss anemia (ABLA) Gastric perforation (CMS/HCC) On total parenteral nutrition (TPN) Ileus (CMS/HCC) Electrolyte abnormality Colon perforation (CMS/HCC) Post-op pain Delirium [2] Past Medical History: Diagnosis Date Anxiety COPD (chronic obstructive pulmonary disease) (CMS/HCC) 05/01/2024 Continue Duo nebs q6 SPO2 goal >88% Depression GERD (gastroesophageal reflux disease) 05/01/2024 Continue Protonix 40 mg daily Hyperkalemia 05/06/2024 Now resolved, pt with hypokalemia requiring replacement On mechanically assisted ventilation (CMS/HCC) 05/06/2024 Arrived to ICU intubated 05/07 extubated to [facility] 05/08 resolved Tobacco use 05/01/2024 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 Complicates all aspects of care and recovery Tremor 05/01/2024 Continue home primidone 50 mg BID [3] Past Surgical History: Procedure Laterality Date ABDOMINAL ADHESION SURGERY SECTION, CLASSIC CHOLECYSTECTOMY CORONARY ARTERY BYPASS GRAFT 05/06/2024 Coronary artery bypass grafting x4 with CHOWDARY to LAD as a free graft, reverse saphenous vein graft sequential to ramus intermedius artery then to obtuse marginal artery 1, reverse saphenous vein graftto PDA.(Reda) HAND SURGERY Right Tendon repair SHOULDER SURGERY * Progress Notes - Dulce Alamo APRN - 06/05/2024 3:01 PM EDT CVT Progress Note 24 Hour Events/HPI: Patient reports extreme sharp pain not really like gas pain that occurs after she tries to eat,after pudding last evening, then again this morning after eating a few bites of pancakes, then yet again after eating a few bites of mashed potatoes for lunch. Notified surgery who recommend KUB and they will come reassess her. Review of Systems: A complete ROS was obtained. All were negative except as noted in HPI. Objective: All laboratory data, images, tracings, and vital sign data for past 24 hours are personally reviewed unless otherwise noted. @PATIENTWT@ , Weight: 61.1 kg (134 lb 12.8 oz) , Ht Readings from Last 1 Encounters: 06/04/24 1.549 m (5' 0.98 ) , Body mass index is 22.71 kg/m??. VITALS (last 24h) Temp: [36.7 ??C (98 ??F)-37.2 ??C (98.9 ??F)] 37.2 ??C (98.9 ??F) Heart Rate: [80-89] 83 Resp: [15-21] 21 BP: (100-111)/(63-71) 110/69 Visit Vitals BP 110/69 (BP Location: Right arm, Patient Position: Lying) Pulse 83 Temp 37.2 ??C (98.9 ??F) (Oral) Resp 21 Ht 1.549 m (5' 0.98 ) Wt 54.5 kg (120 lb 2.4 oz) SpO2 97% BMI 22.71 kg/m?? Smoking Status Every Day BSA 1.53 m?? I & O Summary Intake/Output Summary (Last 24 hours) at 06/05/2024 1501 Last data filed at 06/05/2024 1200 Gross per 24 hour Intake 462 ml Output 2850 ml Net -2388 ml LABS CBC WBC 19.81 (H) Hb 9.3 (L) Plt 643 (H) Hct 29.0 (L) BMP Na 133 (L) Cl 99 BUN 13 Glu 125 (H) K 3.6 Co2 26 Cr 0.50 (L) Ca 7.7 (L) Mg 2.0 MEDICATIONS acetaminophen, 500 mg, Oral, q6h LINDA aspirin, 81 mg, Oral, Daily buPROPion XL, 300 mg, Oral, Daily citalopram, 40 mg, Oral, Daily fat emulsion fish/plant based, 250 mL, Intravenous, Every other day [Held by provider] heparin (porcine), 5,000 Units, Subcutaneous, q8h lidocaine, 2 patch, Apply externally, q24h melatonin, 6 mg, Oral, Nightly methocarbamol, 500 mg, Oral, TID metoprolol tartrate, 25 mg, Oral, BID pantoprazole, 40 mg, Oral, Daily piperacillin-tazobactam, 4.5 g, Intravenous, q6h potassium chloride, 40 mEq, Oral, Once primidone, 50 mg, Oral, BID rosuvastatin, 40 mg, Oral, Nightly sodium chloride, 10 mL, Intravenous, q12h sodium chloride, 10 mL, Intravenous, q12h Adult 2-in-1 TPN, 65 mL/hr, Last Rate: 65 mL/hr (06/04/242113) PRN medications: benzocaine-menthol, calcium carbonate, HYDROmorphone OR HYDROmorphone, hydrOXYzine pamoate, ipratropium-albuterol, [DISCONTINUED] ondansetron ODT OR ondansetron OR [DISCONTINUED] ondansetron, oxyCODONE OR oxyCODONE, phenol, simethicone, sodium chloride, sodium chloride, Insert peripheral IV AND Saline lock IV AND sodium chloride AND sodium chloride, sodium chloride No echocardiogram results found for the past 14 days Physical Exam: GENERAL: WD, WN, NAD. EYES: No scleral icterus or conjunctivitis HENT: Atraumatic, normocephalic, nares patent, mucus membranes moist NECK: Supple, trachea midline RESP/CHEST: Symmetric expansion; non labored. CTA bilaterally CARD: Regular rate and rhythm, normal S1 and S2, no murmur, rub, or gallop, Pedal pulses palpable, no JVD. No edema. Sternum stable. Sternal incision with edges approx, CDI. EVH site(s) CDI. Extremities: No cyanosis or clubbing. GI: Soft, Nontender, nondistended. BS present x 4 quadrants. SKIN: No rash. Midline abd incision with wound vac in place. LENA x 1 to left abd. Colostomy with ostomy bag in place. Left abd IR placed drain (accordion). LUE PICC DSG is CDI. NEURO: AAO. Motor intact and no focal deficits PSYCH: Mood and affect congruent and appropriate to situation Assessment and Plan: CAD, multiple vessel NSTEMI (non-ST elevated myocardial infarction) - Patient presented to OSH on 05/01/24 c/o chest pain - Diagnosed at OSH with elevated troponins of 0.05 to 0.23 to 0.16 [facility] reveal mvCAD - S/p CABG x4 with Dr. Austin on 05/06 - Continue asa, statin, metoprolol - Routine post cardiac surgery care: Sternal precautions x 6 weeks, PT, bowel regimen to prevent constipation and aggressive pulmonary toilet. Anxiety and depression - Continue home bupropion XL 300 mg daily - Continue home citalopram 40 mg daily COPD (Chronic Obstructive Pulmonary Disease) - Duo nebs q6 prn - Wean O2 for SPO2 goal >88% GERD (Gastroesophageal Reflux Disease) - 05/07 extubated, not on home PPI, dc'd - 05/08 pt denies any GERD symptoms - 05/09 + PPI for reflux - 05/10 docusate, metoclopramide, miralax, senna, simethicone, continue NG to low intermitted, CLD for pt comfort, passing gas - 05/11 as above denies reflux today NG clamp trial - 05/14 PPI per blue surgery rec for blood tinged NG output - NG now removed Leukocytosis Abdominal abscess - 05/31: WBC 26.51 - 06/01: WBC 33.03. CT abd per blue surgery - 06/02: WBC 33.90. CT yd with abscess. Started on zosyn yd evening. IR consulted for abscess drainage. - 06/03: WBC 20.40. Plan for IR procedure tomorrow - 06/04: WBC 22.10. S/p Drain placement his AM. Fluid cx pending. Continue zosyn. Blue surg recs: continue zosyn at least 4 days s/p IR drain placement or change abx based on culture data. - 06/05: C/O intense ABD pain after eating any food; surgery to reassess, KUB pending - Afebrile - Monitor Hyperlipidemia - Chol 247, trig 271, HDL 36, LDL 160 - rosuvastatin 40mg po daily TOHM (Obstructive Sleep Apnea) - Refusing home CPAP Hypertension - Metoprolol Cardiac Volume Overload - Diuresis prn Hypoglycemia - Resolved once TPN started Nausea with Vomiting - Prn zofran - Promote po intake Acute Blood Loss Anemia (ABLA) - H/H 10.2/31.0 - 06/01: H/H 9.7/29.3 - 06/03: H/H 9.2/28.8 - 06/04: H/H 9.4/29.3 - 06/05: H/H 9.3/29.0 - Monitor and transfuse prn Gastric Perforation Colonic Perforation Ileus - S/p ex lap with left colon resection with end colostomy with blue surgery on 05/23 - 06/01: CT abd per Blue surgery giving increasing WBC - 06/02: CT yd with abscess. Started on zosyn yd evening. IR consulted for abscess drainage. Plan for IR procedure on Tuesday - 06/04: S/p Drain placement his AM. Fluid cx pending. Continue zosyn. Blue surg recs: continue zosyn at least 4 days s/p IR drain placement or change abx based on culture data On Total Parenteral Nutrition (TPN) - Started on 05/20 - 05/31: Calorie count completed and demonstrated pt was only meeting 12-13% of calorie requirements. - Continue TPN. - Promote PO intake Electrolyte abnormality - Monitor and treat Post-op pain - Abdominal tenderness and pain - MMPC Delirium - Delirium precautions Plan: Encourage PO intake Calorie count in progress Continue TPN pending assessment of PO intake adequacy Continue zosyn S/p drain placement in IR 06/04 Follow cultures Cardiothoracic Surgery [phone] * Progress Notes - Keisha Sabillon - 06/05/2024 10:27 AM EDT Occupational Therapy Treatment Patient Name: Rere Hunter Today's Date: 06/05/2024 OT Discharge Recommendations: LTACH Equipment Recommended: Defer to facility Subjective Pt agreeable to participate in OT session. Participants in Care Family/Caregiver Present: No Family/Caregiver: Adult Son Tester Equipment: Not Applicable Presentation Oxygen Therapy: None (Room air) Lines and Tubes: Telemetry Closed/Suction Drain 1 Left Abdomen Bulb 19 Fr. (Active) Closed/Suction Drain 3 Left LUQ Accordion 8 Fr. (Active) Colostomy Transverse RUQ (Active) PICC Double Lumen 05/19/24 Left Basilic vein (Active) Negative Pressure Wound Therapy Abdomen Lower;Upper;Mid (Active) Peripheral IV 05/12/24 Anterior;Left Forearm (Active) Peripheral IV 05/23/24 Left Hand (Active) Pre-Session: Sitting in chair, Lines intact Pre-Session Comments: RN agreeable to session. Post-Session: Head of bed elevated, RN notified, Lines intact, Call light in reach, Bed alarm (zone1, 2, 3) Post-Session Comments: All needs met. Precautions Medical Precautions: Fall precautions, Sternal Objective Pain Pt with no significant reports of pain this date. Pt positioned for increased comfort and pressure relief at close of session. Delirium Screening Urban Agitation Sedation Scale (RASS): Alert and calm Confusion Assessment Method-ICU (CAM-ICU/PCAM-ICU) Feature 3: Altered Level of Consciousness: Negative Cognition Cognition Overall Cognitive Status: Within Functional Limits Arousal/Alertness: Appropriate responses to stimuli Mood/Behavior: Anxious, Flat affect Single Step Commands: With increased time, With repetition, Consistently Multi-Step Commands: With increased time, With repetition, Consistently Method of Communication: Verbal Bed Mobility Bed Mobility Exam: Scooting/Bridging Level of Harmon: Maximum assist (25% patient's effort) (Seated scooting hips towards EOB withuse of draw sheet.) Physical/Nonphysical Assist: Verbal Cues, Nonverbal cues (demo/gestures) Assistive Device: Other (draw sheet) Bed Mobility Exam: Supine to Sit Level of Harmon: Moderate assist (50% patient's effort) (For trunk upright.) Physical/Nonphysical Assist: Verbal Cues, Nonverbal cues (demo/gestures), Additional assist utilized for safety Assistive Device: Other (draw sheet) Bed Mobility Exam: Sit to Supine Level of Harmon: Minimum assist (75% patient's effort) Physical/Nonphysical Assist: Nonverbal cues (demo/gestures), Verbal Cues, Additional assist utilized for safety Transfers Transfer Exam: Sit to stand Level of Harmon: Contact guard Physical/Nonphysical Assist: Verbal Cues, Set-up required, 1 person + 1 person to manage equipment Assistive Device: Rollator Transfer Exam: Stand to Sit Level of Harmon: Contact guard Physical/Nonphysical Assist: Verbal Cues, 1 person + 1 person to manage equipment, Set-up required Assistive Device: Rollator Toilet Transfer Level of Harmon: Minimum assist (75% patient's effort) Physical/Nonphysical Assist: Verbal Cues, Nonverbal cues (demo/gestures), 1 person + 1 person to manage equipment Type of Transfer: Ambulation, To toilet Assistive Device: Rollator Self-Care Interventions Self Care/Home Management (ADLs) Time Entry: 24 Pt benefited from skilled occupational therapy interventions including: MIN verbal and tactile cues to facilitate improved body mechanics and safety with AD use during functional tasks Provision of increased time frames to support optimal level of pt participation Task/activity modification with grading as needed to achieve safety while also providing appropriate functional challenge Skilled organization and management of medical lines/tubes to reduce fall risk with mobility aspects of ADLs Environmental set-up to ensure safety and accessibility to all needed areas of treatment space Grooming Grooming Level of Assistance: Setup Grooming Interventions: Pt set-up for sequential grooming routine to be completed at bed level at close of session (washing face, combing hair, and brushing teeth). Anticipated pt independence. Toileting Toileting Interventions: In preparation for functional demands of toileting, pt completed low surface sit>stand transfers x 1 trial in order to simulate functional toilet transfer. Pt completed trials with contact guard assist + additional assist utilized for equipment/line management. Health Management Health Management interventions: Therapist facilitated functional bed mobility to return to supine at close of session 2/2 pt requesting to rest. Pt completed sit>supine with min assist x 2 for trunk control and BLE management. Pt continues to require verbal cues regarding sternal precautions inrelation to bed mobility and ADL performance. Increased time, verbal and tactile cues, environmental set-up, standing rest breaks, additonal assist for line management/chair follow, and positioning utilized throughout session to facilitate optimal pt performance in therapeutic tasks. Household/Community Re-entry: Patient challenged to perform functional mobility within room and in hallway to address functional endurance, environmental navigation, and prepare patient for communityre-entry and navigate household distances. Pt navigating through doorways, along straight paths, around turns, and around large obstacles with CGA using rollator + additional assist for line management and chair follow. Pt requiring 1 standing rest break with functional mobility distances this date. Therapist provided minimal verbal cues for postural control, pacing, and weight shifting to improve dynamic balance and safety awareness. Assessment On this date, pt demonstrated functional improvement during OT session, with ability to engage in ADL preparatory routines with CGA, use of assistive devices/adaptive equipment (rollator), increased time, min-mod cueing, and rest breaks. Pt remains limited by symptoms consistent with anxiety, poor functional endurance, mild imbalance and decreased activity tolerance. This negatively impacts safety and independence with self-care execution/IADL's. With this in mind, OT will continue to follow while hospitalized but pt is currently most appropriate for LTACH upon discharge 2/2 TPN requirements.While pt remains hospitalized, OT will provide skilled therapy services for the purpose of improving functional status, decreasing caregiver level of burden, and increasing quality of life OT Recommendations Discharge Destination: LTACH Discharge Equipment: Defer to facility Plan Continue with established OT plan of care 2-5x/week to progress towards functional OT goals. Goals OT GOAL DETAILS Goal Established Date Time Frame Goal Status OT Goal 1: Pt will perform functional toilet transfer including entering/exiting bathroom with mod I using DME as needed. 05/07/24 2 weeks Goal not met, Goal ongoing OT Goal 2: Pt will perform three consecutive grooming activities standing at the sink with mod I using DME as needed. 05/07/24 2 weeks Goal not met, Goal ongoing OT Goal 3: Pt will perform three consecutive LB dressing activities in sitting/standing with mod I using DME/AE as needed. 05/07/24 2 weeks Goal not met, Goal ongoing OT Goal 4: Pt will verbalize/demonstrate sternal precautions with 100% accuracy in order to safely participate in her ADL routine. 05/07/24 2 weeks Goal not met, Goal ongoing Written by Keisha Sabillon on 06/05/24 at 12:08 PM. * Progress Notes - Duane Amor - 06/05/2024 10:26 AM EDT Physical Therapy Treatment Patient Name: Rere Hunter Today's Date: 06/05/2024 PT Discharge Recommendations: LTACH Equipment Recommended: Defer to facility Subjective Patient reports she has been walking better lately. Participants in Care Family/Caregiver Present: No Family/Caregiver: Adult Son Presentation Oxygen Therapy: None (Room air) Lines and Tubes: Telemetry Closed/Suction Drain 1 Left Abdomen Bulb 19 Fr. (Active) Closed/Suction Drain 3 Left LUQ Accordion 8 Fr. (Active) Colostomy Transverse RUQ (Active) PICC Double Lumen 05/19/24 Left Basilic vein (Active) Negative Pressure Wound Therapy Abdomen Lower;Upper;Mid (Active) Peripheral IV 05/12/24 Anterior;Left Forearm (Active) Peripheral IV 05/23/24 Left Hand (Active) Pre-Session: Sitting in chair, Lines intact Pre-Session Comments: RN agreeable to session. Post-Session: Head of bed elevated, RN notified, Lines intact, Call light in reach, Bed alarm (zone1, 2, 3) Post-Session Comments: All needs met. Precautions Medical Precautions: Fall precautions, Sternal Objective Pain No indication of pain during session. Delirium Screening Urban Agitation Sedation Scale (RASS): Alert and calm Confusion Assessment Method-ICU (CAM-ICU/PCAM-ICU) Feature 3: Altered Level of Consciousness: Negative Bed Mobility Bed Mobility Exam: Scooting/Bridging Level of Harmon: Maximum assist (25% patient's effort) Physical/Nonphysical Assist: Verbal Cues, Set-up required, Additional assist utilized for safety Assistive Device: Other (draw sheet to scoot to EOB) Bed Mobility Exam: Supine to Sit Level of Harmon: Maximum assist (25% patient's effort) Physical/Nonphysical Assist: Verbal Cues, Set-up required, Additional assist utilized for safety Bed Mobility Exam: Sit to Supine Level of Harmon: Minimum assist (75% patient's effort) Physical/Nonphysical Assist: Nonverbal cues (demo/gestures), Verbal Cues, Additional assist utilized for safety Transfers Transfer Exam: Sit to stand Level of Harmon: Contact guard Physical/Nonphysical Assist: Verbal Cues, Set-up required, 1 person + 1 person to manage equipment Assistive Device: Rollator Transfer Exam: Stand to Sit Level of Harmon: Contact guard Physical/Nonphysical Assist: Verbal Cues, 1 person + 1 person to manage equipment, Set-up required Assistive Device: Rollator Ambulation Device: Rollator Assistance: Contact guard assist, Minimal verbal cues, Chair follow Distance : 160'x2 Ambulation Comments: Patient demonstrated a slow pace, decreased step length, and decreased foot clearance. She had no loss of balance but was slightly unsteady when fatigued or navigating obstacles. Balance Postural Appearance Posture: Stooped posture, Forward head, Rounded shoulders Static Sitting Balance Static Sitting-Balance Support: Feet supported Static Sitting-Level of Assistance: Standby assist Dynamic Sitting Balance Dynamic Sitting-Balance Support: Feet supported Level of Assistance: Standby assisst Static Standing Balance Static Standing-Balance Support: Right upper extremity support, Left upper extremity support Static Standing-Level of Assistance: Contact guard Dynamic Standing Balance Dynamic Standing-Balance Support: Right upper extremity support, Left upper extremity support Dynamic Standing Level of Assistance: Contact guard Participation in Functional Tasks: Contact guard Therapeutic Activity (23 minutes) Therapist educated patient on post-op mobility guidelines and demonstrated sternal precautions. Therapist answered questions patient had regarding timeline and mobility restrictions and discussed plan of care/goals. Therapist educated patient on rollator safety including brake management, positioning/hand placement during gait and transfers to/from the rollator seat. Patient required brief breaksand increased time throughout session due to shortness of air/fatigue. Patient was instructed in mobility while maintaining sternal precautions. Therapist provided cues for focus on pacing and energyconservation in order to improve endurance/activity tolerance this session. Patient was able to ambulate 160'x2 with one standing rest break. Patient sat EOB for an extended time and performed static/dynamic sitting balance activities including ADL performance. Therapist educated patient on importance of continued mobility and time spent out of bed for decreasing risk of further decline in function and skin breakdown. Assessment Patient with no significant change in mobility this date. Vital signs remained WNL with no adverse effects to treatment. PT Recommendations Discharge Destination: LTACH Discharge Equipment: Defer to facility Plan Continue with plan of care and progress mobility as tolerated. PT Goals PT GOAL DETAILS Goal Established Date Time Frame Goal Status PT Goal 1: Pt will perform supine<>sit transfers with CGA and HOB flat, no use of bed rails. 05/07/24 2 weeks Goal not met, Goal ongoing PT Goal 2: Pt will perform sit to stand and bed to chair transfers with Stefan and LRD. 05/07/24 2 weeks Goal not met, Goal ongoing PT Goal 3: Pt will ambulate >600ft with Stefan and LRD. 05/07/24 2 weeks Goal not met, Goal ongoing PT Goal 4: Pt will safely ascend/descend 3 steps with SBA, one handrail. 05/07/24 2 weeks Goal not met, Goal ongoing Written by Duane Amor on 06/05/24 at 3:01 PM. * Progress Notes - Marysol Hurtado PharmD - 06/05/2024 8:24 AM EDT Pharmacist TPN Progress Note Patient: Rere Hunter Age: 53 y.o. Admission Date: [id number] Subjective/Objective/Hospital Course: 53 y.o. female with PMHx of CAD, HTN, COPD, GERD, tremor, anxiety, depression, and tobacco use, who is currently hospitalized under the care of the CVT surgery team after having a CABG on 05/06/24. Since surgery she has developed nausea, vomiting, and abdominal pain with imaging findings consistent with ileus. Patient has had inadequate energy intake likely related to ileus and has been NPO x [address] 05/20 showed intraabdominal fluid adjacent to stomach concerning for possible perforation. UGI with no perforartion. TPN consult for ileus + possible leak. -- 05/17: TPN consult placed -- 05/19: TPN initiated -- 05/23: CT overnight with PO contrast more convincing for colonic perforation instead of stomach perf. OR with general surgery for left hemicolectomy and colostomy creation. -- 05/25: CLD ordered late afternoon -- 05/28: PO diet ordered -- 05/29: S/P Exploratory laparotomy, extensive lysis of adhesions, left colectomy(performed by colorectal surgery), end colostomy creation, abdominal washout, application of negative pressure wound VAC therapy to skin and soft tissues on 05/23 d/t colon perforation. -- 05/31: Calorie count results: 3-day ave = ~206kcal; 6g protein. Patient meeting ~12-13%kcal; 8% protein needs. -- 06/02: CT scan showed abscess, made NPO for potential drainage soon -- 06/03: pending IR drain on 06/04, will be NPO prior -- 06/04: CT-guided fluid collection drainage with tube placement, Reg diet, start calorie count --06/05: Plan to continue TPN until complete calorie count (~72 hrs) Problem List[1] Medical History[2] Surgical History[3] Allergies: Latex and Oxycodone LABS: Results from last 7 days Lab Units 06/05/24 0612 06/04/24 0556 06/03/24 0108 06/02/24 0708 06/02/24 0102 06/01/24 0120 05/31/24 0250 05/30/24 0513 GLUCOSE mg/dL 125* 105* 117* 111* 507* 495* 107* 112* BUN mg/dL 13 12 12 13 11 12 13 14 CREATININE mg/dL 0.50* 0.53* 0.48* 0.60 0.60 0.54* 0.52* 0.52* SODIUM mmol/L 133* 133* 130* 130* 125* 126* 129* 131* POTASSIUM mmol/L 3.6 3.8 3.3* 3.6 4.8 4.9 3.7 3.7 CHLORIDE mmol/L 99 101 98 97 93* 95* 95* 96* CO2 mmol/L 26 24 23 21* 20* 20* 25 24 CALCIUM mg/dL 7.7* 7.7* 7.7* 7.9* 7.9* 8.0* 8.3* 8.0* PHOSPHORUS mg/dL -- -- -- -- 5.8* 5.2* 4.4 4.3 MAGNESIUM mg/dL 2.0 2.1 2.0 -- 2.3 2.3 2.0 1.9 Results from last 7 days Lab Units 06/05/24 0612 06/04/24 0556 06/03/24 0108 06/02/24 0102 06/01/24 0120 05/31/24 0250 05/30/24 0513 WBC 10*3/uL 19.81* 22.10* 20.40* 33.90* 33.03* 26.51* 23.21* HEMOGLOBIN g/dL 9.3* 9.4* 9.2* 9.2* 9.7* 10.2* 9.7* HEMATOCRIT % 29.0* 29.3* 28.8* 28.7* 29.3* 31.0* 29.7* PLATELETS 10*3/uL 643* 716* 689* 702* 644* 670* 603* Results from last 7 days Lab Units 06/02/24 0102 06/01/24 0120 05/31/24 0250 05/30/24 0513 ALBUMIN g/dL 2.2* 2.2* 2.5* 2.3* Nutrition Labs: Lab Results Component Value Date TRIG 76 05/19/2024 BILITOT 0.9 05/23/2024 ALBUMIN 2.2 (L) 06/02/2024 PREALBUMIN 16.8 (L) 06/03/2024 HGBA1C 5.3 05/01/2024 CRP 225.3 (H) 05/17/2024 IRON 25 (L) 05/14/2024 TIBC 156 (L) 05/14/2024 Microbiology Results Procedure Component Value Units Date/Time Blood Culture (Aerobic/Anaerobet Set) [[id number]] Collected: 05/23/24 1020 Order Status: Completed Specimen: Blood, Venous Updated: 05/24/24 1101 Culture No growth at day 1 Fungal Blood Culture [[id number]] Collected: 05/17/241812 Order Status: Completed Specimen: Blood, Venous Updated: 05/24/2438 Culture No Fungal Growth at 1 Week AFB Blood Culture [[id number]] Collected: 05/17/241812 Order Status: Completed Specimen: Blood, Venous Updated: 05/24/24637 AFB Culture No Mycobacterial Growth at 1 Week Vitals: Visit Vitals BP 105/65 (BP Location: Right arm, Patient Position: Lying) Pulse 84 Temp 36.9 ??C (98.5 ??F) (Oral) Resp 17 Jaida Coma Scale Score: 15 Shaan Scale Score: 18 Oxygen Therapy: None (Room air) Skin Integrity: Bruising (Incisions) Edema: Generalized Wt Readings from Last 3 Encounters: 06/04/24 54.5 kg (120 lb 2.4 oz) 06/28/23 59 kg (130 lb) 04/26/23 62.6 kg (138 lb) Current Diet Order: Dietary Orders (From admission, onward) Start Ordered 06/04/24 1147 Adult diet Diet texture: Regular; Carbohydrate restriction: Consistent Carb 2 (80 gm max/meal); Fat restriction: Cardiac; GI: Ostomy Diet effective now Comments: NO SPICY FOODS NO ONIONS References: IDDSI Diet Texture Guide Question Answer Comment Diet texture Regular Carbohydrate restriction: Consistent Carb 2 (80 gm max/meal) Fat restriction: Cardiac GI Ostomy 06/04/24 1147 05/29/24 1449 Oral nutrition supplements (Adult Diet Panel) Until discontinued Question Answer Comment Supplement frequency: Breakfast Supplement frequency: Lunch Supplement frequency: Dinner Breakfast supplement: Roque Fruit Punch Quantity for Breakfast of Roque Fruit Punch Packet One Lunch supplement: Boost Very High Calorie Vanilla Quantity for Lunch of Boost Very High Calorie - Vanilla One Dinner supplement: Roque Fruit Punch Quantity for Dinner of Roque Fruit Punch Packet One 05/29/24 1448 Current Medications acetaminophen, 500 mg, Oral, q6h LINDA aspirin, 81 mg, Oral, Daily buPROPion, 150 mg, Oral, BID FOLLOWED BY buPROPion XL, 300 mg, Oral, Daily citalopram, 40 mg, Oral, Daily fat emulsion fish/plant based, 250 mL, Intravenous, Every other day [Held by provider] heparin (porcine), 5,000 Units, Subcutaneous, q8h lidocaine, 2 patch, Apply externally, q24h melatonin, 6 mg, Oral, Nightly methocarbamol, 500 mg, Oral, TID metoprolol tartrate, 25 mg, Oral, BID pantoprazole, 40 mg, Oral, Daily piperacillin-tazobactam, 4.5 g, Intravenous, q6h potassium chloride, 40 mEq, Oral, Once primidone, 50 mg, Oral, BID rosuvastatin, 40 mg, Oral, Nightly Insert peripheral IV, , , Once AND Saline lock IV, , , Once AND sodium chloride, 10 mL, Intravenous, q12h AND sodium chloride, 10 mL, Intravenous, PRN sodium chloride, 10 mL, Intravenous, q12h Adult 2-in-1 TPN, 65 mL/hr, Last Rate: 65 mL/hr (06/04/242113) Current Anthropometrics: Height: 154.9 cm (5' 0.98 ) Weight: 61.1 kg (134 lb 12.8 oz) [place] body weight: 47.8 kg (105 lb 4.8 oz) Adjusted ideal body weight: 52.8 kg (116 lb 5.7 oz) (126.25%) of IBW Body mass index is 25.13 kg/m??. Adjusted wt: 50.9 kg (if over 125% of IBW) CENTRAL IV Access: PICC (05/18/24) Estimated Nutritional Needs: HBE: 1153 Stress Factor: 1.2-1.4 Total Calories/day: 8281-0253 Protein (amino acids): 1.3-1.6 grams/kg Protein (Amino acids): 66-81 grams/day Measured Energy Needs: Respiratory Quotient: 06/05/2024 Plan/Recommendation: Labs reviewed. Na low however increasing PO intake. All other electrolytes and BG WNL. Continue goal TPN as below. Will continue to monitor and assess PO intake. GOAL TPN: DEXTROSE: 18% (281 g/day CHO) AMINO ACIDS: 5% (78 g/day - 1.51 g/kg/day Amino acids) C:A 1:3, K @ 30 mEq/L @ 65 ml/hr, with 30mg/day thiamine, MVI, and Trace elements Every other day 250ml 20% SMOF lipids 1517 Total kcal/day - 29.8 kcal/kg/day GUR: 3.83 Replace electrolytes outside of TPN Calcium and/or Phosphorus supplements MUST be in a separate line from the TPN to avoid precipitation Obtain BMP, magnesium, and Phos daily x 3days and then at least twice weekly Obtain LFT and TGLY weekly I have monitored the TPN therapy, including the labs, and have communicated any modifications with the primary medical/surgical team. Continue current TPN formula and lipid regimen as above. I have communicated the TPN plan with the IV room. Thank you! Marysol Hurtado, PharmD PGY1 [employer] Available via secure chat [1] Patient Active Problem List Diagnosis Anxiety and depression COPD (chronic obstructive pulmonary disease) ([facility] [place]) CAD, multiple vessel NSTEMI (non-ST elevated myocardial infarction) ([facility] [place]) GERD (gastroesophageal reflux disease) Leukocytosis Hyperlipidemia THOM (obstructive sleep apnea) S/P CABG x 4 Hypertension Cardiac volume overload Hypoglycemia Nausea with vomiting Acute blood loss anemia (ABLA) Gastric perforation ([facility] [place]) On total parenteral nutrition (TPN) Ileus ([facility] [place]) Electrolyte abnormality Colon perforation ([facility] [place]) Post-op pain Delirium [2] Past Medical History: Diagnosis Date Anxiety COPD (chronic obstructive pulmonary disease) ([facility] [place]) 05/01/2024 Continue Duo nebs q6 SPO2 goal >88% Depression GERD (gastroesophageal reflux disease) 05/01/2024 Continue Protonix 40 mg daily Hyperkalemia 05/06/2024 Now resolved, pt with hypokalemia requiring replacement On mechanically assisted ventilation ([facility] [place]) 05/06/2024 Arrived to ICU intubated 05/07 extubated to 4LNC 05/08 resolved Tobacco use 05/01/2024 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 Complicates all aspects of care and recovery Tremor 05/01/2024 Continue home primidone 50 mg BID [3] Past Surgical History: Procedure Laterality Date ABDOMINAL ADHESION SURGERY SECTION, CLASSIC CHOLECYSTECTOMY CORONARY ARTERY BYPASS GRAFT 05/06/2024 Coronary artery bypass grafting x4 with CHOWDARY to LAD as a free graft, reverse saphenous vein graft sequential to ramus intermedius artery then to obtuse marginal artery 1, reverse saphenous vein graftto PDA.(Reda) HAND SURGERY Right Tendon repair SHOULDER SURGERY * Progress Notes - Carmelita Snyder MD - 06/05/2024 7:38 AM EDT 06/05/24 Rere Hunter HPI CONSULT: colon perforation and fluid collection between stomach and colon 53F HTN, HLD, COPD, GERD, tobacco use, and CAD s/p 4v CABG on 05/06 05/23: ex lap, extended L colectomy and end colostomy creation ([place]) 06/04: IR-guided drain Interval: VSS. L abdominal LENA 5 (10), LUQ IR acordion 50, RUQ Colsotomy 340 (225). Resting this morning. Reports continued tenderness at drain site. Edited by: Carmelita Snyder MD at 06/05/2024 0765 Relevant review of systems was obtained as able and is negative unless stated above in HPI. Vital signs: Vitals: 06/05/24 0255 BP: 100/69 Pulse: 80 Resp: 18 Temp: 36.9 ??C (98.5 ??F) SpO2: 98% Physical Exam Constitutional: General: She is not in acute distress. HENT: Head: Normocephalic. Eyes: Extraocular Movements: Extraocular movements intact. Conjunctiva/sclera: Conjunctivae normal. Cardiovascular: Rate and Rhythm: Normal rate. Pulses: Normal pulses. Pulmonary: Effort: Pulmonary effort is normal. No respiratory distress. Abdominal: General: Abdomen is flat. There is no distension. Palpations: Abdomen is soft. Tenderness: There is no abdominal tenderness. Comments: LENA drain site erythematous, tender, purulent output. IR drain serosang. Musculoskeletal: General: Normal range of motion. Cervical back: Normal range of motion. Skin: General: Skin is warm. Neurological: Mental Status: She is alert and oriented to person, place, and time. Psychiatric: Behavior: Behavior normal. Intake/Output Summary (Last 24 hours) at 06/05/2024 0742 Last data filed at 06/05/2024 0633 Gross per 24 hour Intake -- Output 2250 ml Net -2250 ml Lines/Drains/Tubes: Patient Lines/Drains/Airways Status Active Airway None Output by Drain (mL) 06/03/24 0700 - 06/03/24 1859 06/03/24 1900 - 06/04/24 0659 06/04/24 0700 - 06/04/24 1859 06/04/24 1900 - 06/05/24 0659 06/05/24 0700 - 06/05/24 0742 Closed/Suction Drain 1 Left Abdomen Bulb 19 Fr. 10 5 5 Closed/Suction Drain 3 Left LUQ Accordion 8 Fr. 20 30 Labs in last 18 hours: CBC WBC 19.81 (H) Hb 9.3 (L) Plt 643 (H) Hct 29.0 (L) ANC ?? INR ??, PTT ??, Anti-Xa ?? MCV 93 BMP Na 133 (L) Cl 99 BUN 13 Glu 125 (H) K 3.6 Co2 26 Cr 0.50 (L) Ca 7.7 (L) iCa ?? Mg 2.0, Phos ?? Lactate ?? LFT AST ?? AlkPhos ?? T Prot ?? ALK ?? Bili ?? Alb ?? D.Bili ?? Lab Trends: H/H Results from last 7 days Lab Units 06/05/24 0612 06/04/24 0556 06/03/24 0108 HEMOGLOBIN g/dL 9.3* 9.4* 9.2* HEMATOCRIT % 29.0* 29.3* 28.8* INR Cr Results from last 7 days Lab Units 06/05/24 0612 06/04/24 0556 06/03/24 0108 CREATININE mg/dL 0.50* 0.53* 0.48* Medications reviewed. Vital signs reviewed. Labs reviewed. Radiography reviewed. Assessment and Plan: Medical Problems and Relevant Plans Hospital Problems POA * (Principal) CAD, multiple vessel Yes Overview Addendum 05/23/2024 8:44 AM by Marybel Suarez APRN Patient presented to OSH on 05/01/24 c/o chest pain, LHC reveal mvCAD S/p CABG with Dr. Austin on 05/07 Anxiety and depression Yes Overview Addendum 05/23/2024 8:43 AM by Marybel Suarez, AUTOMOTIVE PORTER Continue home bupropion XL 300 mg daily Continue home citalopram 40 mg daily Continue PRN hydroxyzine 25 mg q6 COPD (chronic obstructive pulmonary disease) ([facility]) Yes Overview Addendum 05/23/2024 8:43 AM by Marybel Suarez, AUTOMOTIVE PORTER Duo nebs q6 Wean O2 for SPO2 goal >88% NSTEMI (non-ST elevated myocardial infarction) ([facility] [place]) Yes Overview Addendum 05/22/2024 11:00 AM by Jose Aburto MD Diagnosed at OSH with elevated troponins of 0.05 to 0.23 to 0.16 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, 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 Repeat troponins pending 05/07 POD 1 4V CABG 05/09 EKG ordered and reviewed no signs of ST changes 05/10 ST 105 05/11 ST 100-105 GERD (gastroesophageal reflux disease) Yes Overview Addendum 05/14/2024 2:06 PM by Cydney Luu MD Continue Protonix 40 mg daily 05/07 extubated, no on home PPI dc'd 05/08 pt denies any GERD symptoms 05/09 + PPI for reflux 05/10 docusate, metoclopramide, miralax, senna, simethicone, continue NG to low intermitted, CLD forpt comfort, passing gas 05/11 as above denies reflux today NG clamp trial 05/14 PPI per blue surgery rec for blood tinged NG output Leukocytosis Yes Overview Addendum 05/23/2024 8:50 AM by Marybel Suarez, AUTOMOTIVE PORTER Remains febrile with elevated EBC Cultures ordered and pending Hyperlipidemia Yes Overview Signed 05/23/2024 8:47 AM by Marybel Suarez, AUTOMOTIVE PORTER Restart statin when no longer NPO THOM (obstructive sleep apnea) Yes Overview Addendum 05/23/2024 8:45 AM by Marybel Suarez, AUTOMOTIVE PORTER Refusing home CPAP remains on NC S/P CABG x 4 Not Applicable Overview Addendum 05/23/2024 8:45 AM by Marybel Suarez, 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 Austin Aspirin, statin, beta stacey as clinically appropriate Hypertension Yes Overview Addendum 05/23/2024 8:47 AM by Marybel Suarez, AUTOMOTIVE PORTER Metop IV while NPO Restart PO metop when appropriate Cardiac volume overload No Overview Addendum 05/18/2024 10:24 AM by Sidney Jackson MD Diuresis as clinically indicated Hypoglycemia No Overview Addendum 05/23/2024 8:46 AM by Marybel Suarez, AUTOMOTIVE PORTER Resolved once TPN started Nausea with vomiting No Overview Addendum 05/28/2024 8:26 AM by Sidney Jackson MD TPN running Advance PO diet as able Acute blood loss anemia (ABLA) No Overview Addendum 05/23/2024 8:43 AM by Marybel Suarez, AUTOM[employer]TER Lab Results Component Value Date HGB 9.0 (L) 05/23/2024 CTM with daily labs Transfuse as indicated Gastric perforation (CMS/HCC) No Overview Addendum 05/28/2024 8:26 AM by Sidney Jackson MD colonic perforation. S/p ex lap with blue surgery on 05/23 On total parenteral nutrition (TPN) No Overview Addendum 05/28/2024 11:41 AM by Sidney Jackson MD Started on 05/20 Obtaining PO calorie count. Will DC TPN when able. Ileus (CMS/HCC) No Overview Addendum 05/28/2024 8:25 AM by Sidney Jackson MD S/p colectomy & end colostomy 05/23 2/2 perforation Electrolyte abnormality Yes Overview Signed 05/23/2024 8:50 AM by Marybel Suarez APRN - monitor and replace prn Post-op pain Unknown Overview Addendum 05/25/2024 10:12 AM by Dave Baird DO Abdominal tenderness and pain 11/23 Increase dilaudid IV ketamine Delirium Unknown Overview Signed 05/29/2024 2:56 PM by Sidney Jackson MD Hospital delirium Delirium precautions Colon perforation (CMS/HCC) Unknown Overview Addendum 05/24/2024 11:04 AM by Jose Aburto MD Noted on CT scan 05/23/24 To OR with blue surgery S/p left colectomy and end colostomy Plan: - [place] (two black + bridge) MWF by nursing - normal ostomy output, reg diet - Follow SGE LENA output (superior drain in abscess cavity near pancreas) - zosyn Edited by: Don Venegas MD at 06/05/2024 0528 SGE will continue to follow Carmelita Snyder MD Cosigned by Graciela Nelson MD at 06/11/2024 4:43 PM EDT Associated attestation - Graciela Nelson MD - 06/11/2024 4:43 PM EDT I saw and evaluated the patient with the resident/fellow. I discussed the case with the resident/fellow and agree with the findings and plan as documented. * Progress Notes - Lester Lazo RN - 06/04/2024 4:06 PM EDT Images from the original note were not included. Wound Care Consult Visit Date: 06/04/2024 Patient Name: Rere Hunter Date of : 1970 Admit Date: 05/01/2024 Reason for Consult: Wound History: S/p ex lap with left colon resection with end colostomy with blue surgery on 05/23 - 06/01: CT abd per Blue surgery giving increasing WBC - 06/02: CT yd with abscess. Started on zosyn yd evening. IR consulted for abscess drainage. IR procedure on Sunday 06/04 Wound Assessment: Wound 05/23/24 Surgical Abdomen Upper (Active) Date First Assessed/Time First Assessed: 05/23/24 1419 Hand Hygiene Completed: Yes Primary Wound Type: Surgical Location: Abdomen Wound Location Orientation: Upper Assessments 06/04/2024 4:02 PM Wound Image Wound Assessment Red;Granulation Margins Well-defined edges Jacey-Wound Assessment Intact (slight PTSL from drape) Closure Sheridan (few sheridan in center) Drainage Description Sanguineous;Serosanguineous Drainage Amount Small Treatments Cleansed;Saline Dressing Vacuum dressing Number of Packing Pieces Used 2 Dressing Changed Changed Dressing Status Intact Active Orders Date Order Priority Status Authorizing Provider 05/31/24 1255 Wound VAC Dressing Changes (Non-Instillation) Upper Abdomen Surgical Routine Active Maite Austin MD - Who is to perform dressing change:: Nursing Staff - Pressure Settings:: Continuous - mmHg:: 125 mmHg Wound Team Summary Assessment: pt seen for ostomy educ and assisted with wound vac dressing change to ABD incision. Details as above, 3 black foam removed, and 2 black foam applied, good red moist granulation, jacey wound skin prepped with stoma powder to PTSL and then cavalon then window paned withdrape using a barrier ring between incision and stoma. Good seal @ 125 Wound Team Plan: Wound care will follow up at regular intervals while inpatient; bedside nursing tofollow wound care recommendations as ordered and please re- consult sooner for new changes or concerns prior to follow up. Lester Lazo RN CWOCN 06/04/2024 4:06 PM * Progress Notes - Lester Lazo RN - 06/04/2024 4:04 PM EDT Images from the original note were not included. Ostomy Progress Note Visit Date: 06/04/2024 Patient Name: Rere Hunter Date of : 1970 Education Ostomy Discharge Teaching Packet given to patient and /or caregiver. Ostomy Discharge Teaching reviewed with patient and/or caregiver. All of patient's current ostomy questions answered. Discussed normal stoma characteristics. Discussed GI output following surgery. Reviewed and provided written information on support binders. Will follow up for hands on instruction and home recommendations. Discussed when to change the appliance. Patient taught how to use the flat barrier ring. Patient given tip sheet with contact numbers. Patient given picture instructions. Wound Ostomy Assessment: Colostomy Transverse RUQ (Active) 05/23/24 RUQ Present on Admission: Earliest Known Present: Placed by External Staff?: Inserted by: Bartolome Hand Hygiene Completed: Yes Colostomy Type: Transverse Stoma Size (cm): Earliest Known Removed: Removal Reason : Wound Image 06/04/24 1601 Stomal Appliance 2 piece;Flat Barrier/Pouch;Flat Ring;Barrier Clinchco/Wipe 06/04/24 1601 Site Assessment Intact;Moist;Raised;Red 06/04/24 1601 Peristomal Assessment Clean;Intact 06/04/24 1601 Treatment Bag change;Site care 06/04/24 1601 Output (mL) 100 mL 06/04/24 0554 Gastric Output Appearance Watery 06/04/24 1601 Gastric Output Color Brown 06/04/24 1601 Packet and 1st demo change done . Lester Lazo RN CWOCN 06/04/2024 4:04 PM * Consults - Valentine Bejarano RD - 06/04/2024 2:28 PM EDTAssociated Order(s): IP CONSULT TO NUTRITION SERVICES Nutrition Education Consult Met with pt to provide colostomy nutrition instruction, per consult: GI Soft, Low Fiber meal planning x 6-8 weeks, followed by a gradual reintroduction of higher fiber foods as tolerated. Discussed food/beverage selection, cooking/preparation techniques, thorough chewing of all foods, appropriate te xture/consistency, and fluid/nutrient adequacy. Pt stated that she ate pudding last night which caused her a lot of cramping; pt stated that her team is aware and they treated with pain meds. Encouraged small frequent meals. Assisted with modified meal planning and encouraged protein with all meals/snacks, and appropriate use of oral nutrition supplements. Answered questions; pt stated that her sister will be eager for the handouts as she will be preparing meals for pt. Provided ASPEN and [employer] materials, with RD contact information for further questions from pt and/or family. Last Wt: 54.5 kg (120 lb 2.4 oz) BMI: 22.71 kg/m?? Valentine Bejarano RD * Consults - Garrett Ruiz - 06/04/2024 1:25 PM EDT 06/04: Calorie count consult received. Sign hung on patient door in progress 06/05 - 06/07 RN: Please document percent of all PO food, drink, and supplement intake for the active dates in [facility] under the I/O-Calorie Count section in the flow sheet. If no PO food consumed for a particular meal, please document 0% of meal . Results to follow. Garrett Ruiz DTR * Progress Notes - Shola Sheridan, ARASH - 06/04/2024 12:42 PM EDT CVT Progress Note 24 Hour Events/HPI: No acute events or issues overnight. Patient remained hemodynamically stable, afebrile, and rested comfortably overnight. S/p IR drain placement this AM. Reports she is tired postop procedure. Review of Systems: A complete ROS was obtained. All were negative except as noted in HPI. Objective: All laboratory data, images, tracings, and vital sign data for past 24 hours are personally reviewed unless otherwise noted. @PATIENTWT@ , Weight: 61.1 kg (134 lb 12.8 oz) , Ht Readings from Last 1 Encounters: 06/04/24 1.549 m (5' 0.98 ) , Body mass index is 22.71 kg/m??. VITALS (last 24h) Temp: [36.7 ??C (98.1 ??F)-37.1 ??C (98.7 ??F)] 37.1 ??C (98.7 ??F) Heart Rate: [81-94] 94 Resp: [15-26] 20 BP: (103-125)/(63-77) 117/70 Visit Vitals BP 117/70 Pulse 94 Temp 37.1 ??C (98.7 ??F) (Oral) Resp 20 Ht 1.549 m (5' 0.98 ) Wt 54.5 kg (120 lb 2.4 oz) SpO2 96% BMI 22.71 kg/m?? Smoking Status Every Day BSA 1.53 m?? I & O Summary Intake/Output Summary (Last 24 hours) at 06/04/2024 1242 Last data filed at 06/04/2024 0554 Gross per 24 hour Intake 111 ml Output 1735 ml Net -1624 ml LABS CBC WBC 22.10 (H) Hb 9.4 (L) Plt 716 (H) Hct 29.3 (L) ANC ?? INR ??, PTT ??, Anti-Xa ?? BMP Na 133 (L) Cl 101 BUN 12 Glu 105 (H) K 3.8 Co2 24 Cr 0.53 (L) Ca 7.7 (L) iCa ?? Mg 2.1, Phos ?? Lactate ?? LFT AST ?? AlkPhos ?? T Prot ?? ALK ?? Bili ?? Alb ?? D.Bili ?? HOURS) MEDICATIONS acetaminophen, 500 mg, Oral, q6h LINDA aspirin, 81 mg, Oral, Daily buPROPion XL, 300 mg, Oral, Daily citalopram, 40 mg, Oral, Daily fat emulsion fish/plant based, 250 mL, Intravenous, Every other day [Held by provider] heparin (porcine), 5,000 Units, Subcutaneous, q8h lidocaine, 2 patch, Apply externally, q24h melatonin, 6 mg, Oral, Nightly methocarbamol, 500 mg, Oral, TID metoprolol tartrate, 25 mg, Oral, BID pantoprazole, 40 mg, Oral, Daily piperacillin-tazobactam, 4.5 g, Intravenous, q6h potassium chloride, 40 mEq, Oral, Once primidone, 50 mg, Oral, BID rosuvastatin, 40 mg, Oral, Nightly sodium chloride, 10 mL, Intravenous, q12h sodium chloride, 10 mL, Intravenous, q12h Adult 2-in-1 TPN, 65 mL/hr, Last Rate: 65 mL/hr (06/03/242126) PRN medications: benzocaine-menthol, calcium carbonate, hydrALAZINE, HYDROmorphone OR HYDROmorphone, hydrOXYzine pamoate, ipratropium-albuterol, [DISCONTINUED] ondansetron ODT OR ondansetron OR [DISCONTINUED] ondansetron, oxyCODONE OR oxyCODONE, phenol, simethicone, sodium chloride, sodium chloride, Insert peripheral IV AND Saline lock IV AND sodium chloride AND sodiumchloride, sodium chloride Physical Exam: GENERAL: 54F. NAD on RA EYES: No scleral icterus or conjunctivitis HENT: Atraumatic, normocephalic, nares patent, mucus membranes moist NECK: Supple, trachea midline RESP/CHEST: Symmetric expansion; non labored. CTA bilaterally. Midsternal incision CDI. Sternum stable. CARD: regular rate and rhythm, normal S1 and S2, no murmur, rub, or gallop, Pedal pulses palpable +2. , no JVD. No edema Extremities: No cyanosis or clubbing. GI: Soft, Nontender, nondistended. BS present and normoactive x 4 quadrants. Midline abd incision with wound vac in place. LENA x 1 to left abd. Colostomy with ostomy bag in place. Left abd IR placed drain in place SKIN: No rash. NEURO: AAOx4. Motor intact and no focal deficits PSYCH: Mood and affect congruent and appropriate to situation. Assessment and Plan: CAD, multiple vessel NSTEMI (non-ST elevated myocardial infarction) - Patient presented to OSH on 05/01/24 c/o chest pain - Diagnosed at OSH with elevated troponins of 0.05 to 0.23 to 0.16 [facility] reveal mvCAD - S/p CABG x4 with Dr. Austin on 05/06 - continue asa, statin, metoprolol - Routine post cardiac surgery care: sternal precautions x 6 weeks, PT, bowel regimen to prevent constipation and aggressive pulmonary toilet. Anxiety and depression - Continue home bupropion XL 300 mg daily - Continue home citalopram 40 mg daily COPD (chronic obstructive pulmonary disease) - Duo nebs q6 prn - Wean O2 for SPO2 goal >88% GERD (gastroesophageal reflux disease) - 05/07 extubated, no on home PPI dc'd - 05/08 pt denies any GERD symptoms - 05/09 + PPI for reflux - 05/10 docusate, metoclopramide, miralax, senna, simethicone, continue NG to low intermitted, CLD for pt comfort, passing gas - 05/11 as above denies reflux today NG clamp trial - 05/14 PPI per blue surgery rec for blood tinged NG output Leukocytosis Abdominal abscess - 05/31: WBC 26.51 - 06/01: WBC 33.03. CT abd per blue surgery - 06/02: WBC 33.90. CT yd with abscess. Started on zosyn yd evening. IR consulted for abscess drainage. - 06/03: WBC 20.40. Plan for IR procedure tomorrow - 06/04: WBC 22.10. S/p Drain placement his AM. Fluid cx pending. Continue zosyn. Blue surg recs: continue zosyn at least 4 days s/p IR drain placement or change abx based on culture data - afebrile - monitor Hyperlipidemia - Statin THOM (obstructive sleep apnea) - Refusing home CPAP Hypertension - metoprolol Cardiac volume overload - diuresis prn Hypoglycemia - Resolved once TPN started Nausea with vomiting - prn zofran - promote po intake Acute blood loss anemia (ABLA) - H/H 10.2/31.0 - 06/01: H/H 9.7/29.3 - 06/03: H/H 9.2/28.8 - 06/04: H/H 9.4/29.3 - Monitor and transfuse prn Gastric perforation Colonic perforation Ileus - S/p ex lap with left colon resection with end colostomy with blue surgery on 05/23 - 06/01: CT abd per Blue surgery giving increasing WBC - 06/02: CT yd with abscess. Started on zosyn yd evening. IR consulted for abscess drainage. Plan for IR procedure on Tuesday - 06/04: S/p Drain placement his AM. Fluid cx pending. Continue zosyn. Blue surg recs: continue zosyn at least 4 days s/p IR drain placement or change abx based on culture data On total parenteral nutrition (TPN) - Started on 05/20 - 05/31: Calorie count completed and demonstrated pt was only meeting 12-13% of calorie requirements. - Continue TPN. - Promote PO intake Electrolyte abnormality - monitor and replace prn Post-op pain - Abdominal tenderness and pain - MMPC Delirium - Delirium precautions Plan: Encourage PO intake Restart calorie count Continue TPN pending assessment of PO intake adequacy Continue zosyn S/p drain placement in IR Follow cultures Cardiothoracic Surgery [phone] * Consults - Gretchen Brothers RD - 06/04/2024 11:18 AM EDT Adult Nutrition Evaluation Note Rere Hunter 53 y.o. female CSN: [id number] Room/Bed 117/117A Nutrition evaluation type: follow-up Reason for evaluation: Hospital course: 53 y.o. female presents for CABG evaluation. OR on 05/06. 05/16: NPO x 5 days d/t ileus. Trial of clamping NGT. SGE is following. Pt has been intermittently confused. 05/18: Patient transferred back to ICU yesterday given worsening abdominal exam, electrolyte abnormalities, and overall care requirements. Having fevers, tachycardia. General surgery and GI acutely involved for worsening bowel exam with CT findings concerning for possible gastric perforation. 05/21: Currently receiving TPN. NGT to suction. 05/29: S/P Exploratory laparotomy, extensive lysis of adhesions, left colectomy(performed by colorectal surgery), end colostomy creation, abdominal washout, application of negative pressure wound VAC therapy to skin and soft tissues on 05/23 d/t colon perforation. Continues on TPN, decreased to half rate. Po diet initiated and advanced on 05/28; calorie count started. Past medical/ surgical history: Medical History[1] Surgical History[2] Social history: Additional comments: Minimal PO intake recently, diet advancing per protocol. 05/11: Pt reports appetite improving, trying to eat. Pt denied n/v/d/c, denied chewing/swallowing difficulty. Pt denied involuntary wt changes. No feeding tube present. 05/31: Nurse providing care at time of visit 06/04: Pt out of room (IR) at time of visit Vitals and Basic Assessment: BP: 115/67 Temp: 36.8 ??C (98.3 ??F) Invasive Ventilator Initiated (ETT/Trach Only): Yes Oxygen Therapy: None (Room air) O2 Delivery Method: Nasal cannula with capnography [place] Coma Scale Score: 15 Sh[place] Scale Score: 18 Joshua/Cesilia Pressure Risk Score: 45 Most Recent BM Date: 06/03/24 GI Symptoms: Nausea Edema: Generalized Colostomy output: 180 mL Wound vac in place Allergies: NKFA Medications: acetaminophen, 500 mg, Oral, q6h LINDA aspirin, 81 mg, Oral, Daily buPROPion, 150 mg, Oral, BID FOLLOWED BY buPROPion XL, 300 mg, Oral, Daily citalopram, 40 mg, Oral, Daily fat emulsion fish/plant based, 250 mL, Intravenous, Every other day [Held by provider] heparin (porcine), 5,000 Units, Subcutaneous, q8h lidocaine, 2 patch, Apply externally, q24h melatonin, 6 mg, Oral, Nightly methocarbamol, 500 mg, Oral, TID metoprolol tartrate, 25 mg, Oral, BID pantoprazole, 40 mg, Oral, Daily piperacillin-tazobactam, 4.5 g, Intravenous, q6h potassium chloride, 40 mEq, Oral, Once primidone, 50 mg, Oral, BID rosuvastatin, 40 mg, Oral, Nightly Insert peripheral IV, , , Once AND Saline lock IV, , , Once AND sodium chloride, 10 mL, Intravenous, q12h AND sodium chloride, 10 mL, Intravenous, PRN sodium chloride, 10 mL, Intravenous, q12h PRN medications: benzocaine-menthol, calcium carbonate, hydrALAZINE, HYDROmorphone OR HYDROmorphone, hydrOXYzine pamoate, ipratropium-albuterol, [DISCONTINUED] ondansetron ODT OR ondansetron OR [DISCONTINUED] ondansetron, oxyCODONE OR oxyCODONE, phenol, simethicone, sodium chloride, sodium chloride, Insert peripheral IV AND Saline lock IV AND sodium chloride AND sodiumchloride, sodium chloride Meds were reviewed: Yes Labs: Lab Results Component Value Date GLUCOSE 105 (H) 06/04/2024 CALCIUM 7.7 (L) 06/04/2024 NA 133 (L) 06/04/2024 K 3.8 06/04/2024 CO2 24 06/04/2024 CL 101 06/04/2024 BUN 12 06/04/2024 CREATININE 0.53 (L) 06/04/2024 PHOS 5.8 (H) 06/02/2024 MG 2.1 06/04/2024 HGBA1C 5.3 05/01/2024 Anthropometrics: Height: 154.9 cm (5' 0.98 ) Weight: 54.5 kg (120 lb 2.4 oz) BMI (Calculated): 22.71 Weight Evaluation: Overweight (BMI 25-29.9) [place] Body Weight (kg): 47.7 Percent [place] Body Weight: 114 Adjusted Body Weight (kg): 50.9 Wt Readings from Last 10 Encounters: 06/04/24 54.5 kg (120 lb 2.4 oz) 06/28/23 59 kg (130 lb) 04/26/23 62.6 kg (138 lb) 01/18/23 61.7 kg (136 lb) Estimated Needs: Kcal/ K-35 Kcal Provided: 7489-0922 Kcal Needs Based On: Current weight Gm Protein/ Kg : 1.5-2 Protein Provided: 81-109 Protein Needs Based On: Current weight Metabolic Cart Study Results: Current Nutrition Intake: Diet Supplements: Roque Packet, Boost Very High Calorie Diet Order: NPO Diet Texture: Regular Adult Carbohydrate Restriction: Consistent CHO 2 (7991-2668 Channing, 80 g/meal) Fat Restriction: Cardiac Other Restrictions: Other (Comment) (GI ostomy) Percent Meals Eaten (%): 25, 50, 100% x 3 recorded meals GOAL TPN: DEXTROSE: 18% (281 g/day CHO) AMINO ACIDS: 5% (78 g/day - 1.51 g/kg/day Amino acids) C:A 1:3, K @ 30 mEq/L @ 65 ml/hr, with 30mg/day thiamine, MVI, and Trace elements Every other day 250ml 20% SMOF lipids 1517 Total kcal/day - 29.8 kcal/kg/day GUR: 3.83 Calorie Count Results: 05/31: Calorie count results: 3-day ave = ~206kcal; 6g protein. Patient meeting ~12-13%kcal; 8% protein needs. RD to follow aGrrett Ruiz DTR Diet Experience and Nutrition History: Diet Education Provided: Will monitor Pertinent home medications: reviewed Gnosticist needs: Nutrition Focused Physical Exam: Physical exam performed on (date): 05/11 Temples (muscles): None Clavicle (muscle): None Shoulder (muscle): None Interosseous (muscle): None Thigh (muscle): None Calf (muscle): Mild Orbital (fat): None Triceps (fat): None Assessment of Malnutrition: Malnutrition Identified: No Nutrition Problem: Increased nutrient needs protein, calories related to s/p CABG/exp lap as evidenced by increased metabolic demands of surgical wound healing. Status of Nutrition Diagnosis: Ongoing Inadequate energy intake related to ileus/possible gastric perforation -> colonic perforation asevidenced by NPO x 7 days -> TPN initiated -> TPN + po diet Status of Nutrition Diagnosis: Improvement Nutrition Interventions and Recommendations: - TPN per pharmacy. - Continue PO diet as tolerated. - Continue Boost VHC once daily + Roque BID. -Consult placed for ostomy diet education Nutrition Monitoring and Goals: - Will monitor PO intake, weight, skin, labs, nutrition status - Improved PO intake - monitor elytes (ongoing) - monitor ostomy output - Pt will maintain body weight throughout hospital admission (ongoing) - ostomy diet education prior to d/c Acuity Level: [address], LD [1] Past Medical History: Diagnosis Date Anxiety COPD (chronic obstructive pulmonary disease) ([facility]/HCC) 05/01/2024 Continue Duo nebs q6 SPO2 goal >88% Depression GERD (gastroesophageal reflux disease) 05/01/2024 Continue Protonix 40 mg daily Hyperkalemia 05/06/2024 Now resolved, pt with hypokalemia requiring replacement On mechanically assisted ventilation ([facility]/HCC) 05/06/2024 Arrived to ICU intubated 05/07 extubated to [facility] 05/08 resolved Tobacco use 05/01/2024 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 Complicates all aspects of care and recovery Tremor 05/01/2024 Continue home primidone 50 mg BID [2] Past Surgical History: Procedure Laterality Date ABDOMINAL ADHESION SURGERY SECTION, CLASSIC CHOLECYSTECTOMY CORONARY ARTERY BYPASS GRAFT 05/06/2024 Coronary artery bypass grafting x4 with CHOWDARY to LAD as a free graft, reverse saphenous vein graft sequential to ramus intermedius artery then to obtuse marginal artery 1, reverse saphenous vein graftto PDA.(Reda) HAND SURGERY Right Tendon repair SHOULDER SURGERY * Progress Notes - Db Kline - 06/04/2024 11:05 AM EDT Pharmacist TPN Progress Note Patient: Rere Hunter Age: 53 y.o. Admission Date: [id number] Subjective/Objective/Hospital Course: 53 y.o. female with PMHx of CAD, HTN, COPD, GERD, tremor, anxiety, depression, and tobacco use, who is currently hospitalized under the care of the CVT surgery team after having a CABG on 05/06/24. Since surgery she has developed nausea, vomiting, and abdominal pain with imaging findings consistent with ileus. Patient has had inadequate energy intake likely related to ileus and has been NPO x [address] 05/20 showed intraabdominal fluid adjacent to stomach concerning for possible perforation. UGI with no perforartion. TPN consult for ileus + possible leak. -- 05/17: TPN consult placed -- 05/19: TPN initiated -- 05/23: CT overnight with PO contrast more convincing for colonic perforation instead of stomach perf. OR with general surgery for left hemicolectomy and colostomy creation. -- 05/25: CLD ordered late afternoon -- 05/28: PO diet ordered -- 05/29: S/P Exploratory laparotomy, extensive lysis of adhesions, left colectomy(performed by colorectal surgery), end colostomy creation, abdominal washout, application of negative pressure wound VAC therapy to skin and soft tissues on 05/23 d/t colon perforation. -- 05/31: Calorie count results: 3-day ave = ~206kcal; 6g protein. Patient meeting ~12-13%kcal; 8% protein needs. -- 06/02: CT scan showed abscess, made NPO for potential drainage soon -- 06/03: pending IR drain on 06/04, will be NPO prior -- 06/04: CT-guided fluid collection drainage with tube placement Problem List[1] Medical History[2] Surgical History[3] Allergies: Latex and Oxycodone LABS: Results from last 7 days Lab Units 06/04/24 0556 06/03/24 0108 06/02/24 0708 06/02/24 0102 06/01/24 0120 05/31/24 0250 05/30/24 0513 05/29/24 0700 05/29/24 0535 GLUCOSE mg/dL 105* 117* 111* 507* 495* 107* 112* 104* 600* BUN mg/dL 12 12 13 11 12 13 14 13 12 CREATININE mg/dL 0.53* 0.48* 0.60 0.60 0.54* 0.52* 0.52* 0.58* 0.59* SODIUM mmol/L 133* 130* 130* 125* 126* 129* 131* 132* 128* POTASSIUM mmol/L 3.8 3.3* 3.6 4.8 4.9 3.7 3.7 4.0 5.1* CHLORIDE mmol/L 101 98 97 93* 95* 95* 96* 97 95* CO2 mmol/L 24 23 21* 20* 20* 25 24 25 22 CALCIUM mg/dL 7.7* 7.7* 7.9* 7.9* 8.0* 8.3* 8.0* 8.3* 8.1* PHOSPHORUS mg/dL -- -- -- 5.8* 5.2* 4.4 4.3 4.1 5.6* MAGNESIUM mg/dL 2.1 2.0 -- 2.3 2.3 2.0 1.9 -- 2.1 Results from last 7 days Lab Units 06/04/24 0556 06/03/24 0108 06/02/2410106/01/24 0120 05/31/24 0250 05/30/24 0513 05/29/24 0535 WBC 10*3/uL 22.10* 20.40* 33.90* 33.03* 26.51* 23.21* 22.52* HEMOGLOBIN g/dL 9.4* 9.2* 9.2* 9.7* 10.2* 9.7* 9.3* HEMATOCRIT % 29.3* 28.8* 28.7* 29.3* 31.0* 29.7* 28.9* PLATELETS 10*3/uL 716* 689* 702* 644* 670* 603* 528* Results from last 7 days Lab Units 06/02/24 0102 06/01/24 0120 05/31/24 0250 05/30/24 0513 05/29/24 0535 ALBUMIN g/dL 2.2* 2.2* 2.5* 2.3* 2.0* Nutrition Labs: Lab Results Component Value Date TRIG 76 05/19/2024 BILITOT 0.9 05/23/2024 ALBUMIN 2.2 (L) 06/02/2024 PREALBUMIN 16.8 (L) 06/03/2024 HGBA1C 5.3 05/01/2024 CRP 225.3 (H) 05/17/2024 IRON 25 (L) 05/14/2024 TIBC 156 (L) 05/14/2024 Microbiology Results Procedure Component Value Units Date/Time Blood Culture (Aerobic/Anaerobet Set) [[id number]] Collected: 05/23/24 1020 Order Status: Completed Specimen: Blood, Venous Updated: 05/24/24 1101 Culture No growth at day 1 Fungal Blood Culture [[id number]] Collected: 05/17/241812 Order Status: Completed Specimen: Blood, Venous Updated: 05/24/2438 Culture No Fungal Growth at 1 Week AFB Blood Culture [[id number]] Collected: 05/17/241812 Order Status: Completed Specimen: Blood, Venous Updated: 05/24/24637 AFB Culture No Mycobacterial Growth at 1 Week Vitals: Visit Vitals BP 111/71 Pulse 81 Temp 36.8 ??C (98.3 ??F) (Oral) Resp 22 Jaida Coma Scale Score: 15 Shaan Scale Score: 18 Oxygen Therapy: None (Room air) Skin Integrity: Bruising Edema: Generalized Wt Readings from Last 3 Encounters: 06/03/24 54.5 kg (120 lb 2.4 oz) 06/28/23 59 kg (130 lb) 04/26/23 62.6 kg (138 lb) Current Diet Order: Dietary Orders (From admission, onward) Start Ordered 06/04/24 0001 NPO diet Diet effective midnight 06/02/24 1203 05/29/24 1449 Oral nutrition supplements (Adult Diet Panel) Until discontinued Question Answer Comment Supplement frequency: Breakfast Supplement frequency: Lunch Supplement frequency: Dinner Breakfast supplement: Roque Fruit Punch Quantity for Breakfast of Roque Fruit Punch Packet One Lunch supplement: Boost Very High Calorie Vanilla Quantity for Lunch of Boost Very High Calorie - Vanilla One Dinner supplement: Roque Fruit Punch Quantity for Dinner of Roque Fruit Punch Packet One 05/29/24 9588 Current Medications acetaminophen, 500 mg, Oral, q6h LINDA aspirin, 81 mg, Oral, Daily buPROPion, 150 mg, Oral, BID FOLLOWED BY buPROPion XL, 300 mg, Oral, Daily citalopram, 40 mg, Oral, Daily fat emulsion fish/plant based, 250 mL, Intravenous, Every other day [Held by provider] heparin (porcine), 5,000 Units, Subcutaneous, q8h lidocaine, 2 patch, Apply externally, q24h melatonin, 6 mg, Oral, Nightly methocarbamol, 500 mg, Oral, TID metoprolol tartrate, 25 mg, Oral, BID pantoprazole, 40 mg, Oral, Daily piperacillin-tazobactam, 4.5 g, Intravenous, q6h potassium chloride, 40 mEq, Oral, Once primidone, 50 mg, Oral, BID rosuvastatin, 40 mg, Oral, Nightly Insert peripheral IV, , , Once AND Saline lock IV, , , Once AND sodium chloride, 10 mL, Intravenous, q12h AND sodium chloride, 10 mL, Intravenous, PRN sodium chloride, 10 mL, Intravenous, q12h Adult 2-in-1 TPN, 65 mL/hr, Last Rate: 65 mL/hr (06/03/242126) Current Anthropometrics: Height: 154.9 cm (5' 0.98 ) Weight: 61.1 kg (134 lb 12.8 oz) [place] body weight: 47.8 kg (105 lb 4.8 oz) Adjusted ideal body weight: 52.8 kg (116 lb 5.7 oz) (126.25%) of IBW Body mass index is 25.13 kg/m??. Adjusted wt: 50.9 kg (if over 125% of IBW) CENTRAL IV Access: PICC (05/18/24) Estimated Nutritional Needs: HBE: 1153 Stress Factor: 1.2-1.4 Total Calories/day: 2797-1431 Protein (amino acids): 1.3-1.6 grams/kg Protein (Amino acids): 66-81 grams/day Measured Energy Needs: Respiratory Quotient: 06/04/2024 Plan/Recommendation: Labs reviewed. Team would like to continue TPN for tonight, continuegoal TPN as below. Will continue to monitor. GOAL TPN: DEXTROSE: 18% (281 g/day CHO) AMINO ACIDS: 5% (78 g/day - 1.51 g/kg/day Amino acids) C:A 1:3, K @ 30 mEq/L @ 65 ml/hr, with 30mg/day thiamine, MVI, and Trace elements Every other day 250ml 20% SMOF lipids 1517 Total kcal/day - 29.8 kcal/kg/day GUR: 3.83 Replace electrolytes outside of TPN Calcium and/or Phosphorus supplements MUST be in a separate line from the TPN to avoid precipitation Obtain BMP, magnesium, and Phos daily x 3days and then at least twice weekly Obtain LFT and TGLY weekly I have monitored the TPN therapy, including the labs, and have communicated any modifications with the primary medical/surgical team. Continue current TPN formula and lipid regimen as above. I have communicated the TPN plan with the IV room. Thank you! Db Kline, PharmD Candidate 2024 Preceptor - Moni Méndez, MagalieD [1] Patient Active Problem List Diagnosis Anxiety and depression COPD (chronic obstructive pulmonary disease) ([facility]) CAD, multiple vessel NSTEMI (non-ST elevated myocardial infarction) ([facility]) GERD (gastroesophageal reflux disease) Leukocytosis Hyperlipidemia THOM (obstructive sleep apnea) S/P CABG x 4 Hypertension Cardiac volume overload Hypoglycemia Nausea with vomiting Acute blood loss anemia (ABLA) Gastric perforation ([facility]) On total parenteral nutrition (TPN) Ileus ([facility]) Electrolyte abnormality Colon perforation ([facility]) Post-op pain Delirium [2] Past Medical History: Diagnosis Date Anxiety COPD (chronic obstructive pulmonary disease) ([facility]) 05/01/2024 Continue Duo nebs q6 SPO2 goal >88% Depression GERD (gastroesophageal reflux disease) 05/01/2024 Continue Protonix 40 mg daily Hyperkalemia 05/06/2024 Now resolved, pt with hypokalemia requiring replacement On mechanically assisted ventilation (CMS/HCC) 05/06/2024 Arrived to ICU intubated 05/07 extubated to 4LNC 05/08 resolved Tobacco use 05/01/2024 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 Complicates all aspects of care and recovery Tremor 05/01/2024 Continue home primidone 50 mg BID [3] Past Surgical History: Procedure Laterality Date ABDOMINAL ADHESION SURGERY SECTION, CLASSIC CHOLECYSTECTOMY CORONARY ARTERY BYPASS GRAFT 05/06/2024 Coronary artery bypass grafting x4 with CHOWDARY to LAD as a free graft, reverse saphenous vein graft sequential to ramus intermedius artery then to obtuse marginal artery 1, reverse saphenous vein graftto PDA.(Reda) HAND SURGERY Right Tendon repair SHOULDER SURGERY Cosigned by Moni Méndez, PharmD at 06/04/2024 1:59 PM EDT Associated attestation - Moni Méndez PharmD - 06/04/2024 1:59 PM EDT I have reviewed the students assessment and plan and agree with the below statements * Arsh Padron RN - 06/04/2024 10:48 AM EDT Images from the original note were not included. [address]66 Taking Care of Your Flushable Drain Tube You have had a drain tube placed into space inside your body. This small tube comes out through your skin. It drains blood, infection, or fluid into a bag outside your body. Call your doctor if: If you see any of these signs the skin is infected: o red o swollen o tender to the touch o pulls away from the drain You have a fever of 101.5??F or higher. Worsening pain that was not there before. It may mean your drain tube is clogged if: ?? Liquid comes out around the drain site when you try to flush it. ?? You have new pain when you try to flush it. If you have any of the above symptoms, call by the next day (within 24 hours). *If your drain is pulled out or falls out, and you are not bleeding heavily, make an appointment tosee a healthcare provider within 3 days. *If your drain is pulled out or falls out, and you are having heavy bleeding, press a clean, dry towel firmly on the site for at least 10 minutes. If the towel is still soaking with blood after 10 minutes, call 911 or go to the nearest Emergency Room right away. [facility], 1st floor [address], [address] [place] [id number] Caring for your drain tube It is very important to take care of your drain tube to help prevent an infection. You should: ?? Change the bandage and clean the skin around the drain tube. Do this at least once a week or more often if the bandage gets wet or dirty. ?? ?Flush? the drain tube to keep it from getting clogged. Do this twice a day - once in the morning and once in the evening (or more often if your doctor tells you). Below are detailed instructions on how to change your bandage, clean around the drain tube, and flush the drain tube. There is also information on bathing, taking antibiotic medicines, and follow up visits. Changing the bandage Change the bandage and clean the skin around the drain tube at least once a week. If the bandage gets wet or dirty, change it and clean around the drain tube, even if you just changed the bandage theday before. You may change the bandage yourself or a family member or friend may do it for you. You need these supplies when you change the bandage and clean around the drain tube. ?? Plain soap and warm water or an alcohol-based hand still cleaner tube ?? Disposable medical gloves - (optional) they do not have to be sterile ?? Gauze pads (4x4s) -- you will need a total of four (4) ?? Clean wash cloth ?? Medical tape ?? Trash bag Step 1. Remove the old bandage ?? Gently remove the old dressing being sure not to pull on the tube. ?? Wash hands and put on gloves (if wearing gloves). ?? Carefully remove the old bandage. Press on the skin next to the drain tube with one hand and gently remove the tape with the other hand. ?? Throw the old bandage in the trash bag. ?? Look for signs of infection. Is the skin: ? red ? swollen ? tender to the touch ? pulled away from the drain tube Call your doctor if you have any of these signs of infection. Step 2: Clean the skin. ?? Hold the drain tube in place while you are cleaning around it so it does not pull out. Carefully hold the drain in place. ?? Wet a gauze 4x4 with soap and water. ?? Start cleaning where the drain tube comes out of the skin. ?? Wipe the skin gently in a tazlina, moving away from the drain tube in bigger and bigger circles. Clean the skin carefully. ?? Gently pat the skin with the clean washcloth until it is dry. Step 3: Put on a fresh bandage: two clean gauze 4x4s and tape. ?? Fold each gauze in half. ?? Place one on top of the drain tube. ?? Place one under the drain tube. ?? Tape on all sides. Tape on a new bandage. Flushing your drain tube Your doctor may want you to flush your drain tube daily. This helps keep the drain tube from getting clogged. Flush it as frequently as the doctor orders. You will need these supplies to flush your drain tube: ?? Plain soap and warm water or an alcohol-based hand still cleaner tube ?? Disposable medical gloves - (Optional) they do not have to be sterile ?? Stopcock or Adaptor Tube (See Last page for Directions) - we will give you one to take home ?? Saline solution - this comes in pre-filled syringes; you can buy these at most drug stores ?? Trash bag How to flush the drain tube: The person cleaning the drain tube should wash their hands with soap & water or hand cleanerand put on a new pair of medical gloves if they choose to. Wash hands and put on gloves (if wearing gloves). ?? Open the package of saline in a syringe. ?? Unscrew and remove the cap on the drain tube. Put the cap on a clean surface so that nothing touches the inside of the cap. If anything touches the inside of the cap, germs could get into your drain tube and you could get an infection. Drain tube cap. ? Turn the stopcock on the drain tube to the ?on? position. ? Slowly push the 10ml of saline solution into the drain tube. ? Attach syringe and flush drain tube. ? Turn the stopcock to the ?off? position. Turn the stopcock to the ?off? position. ?? Remove the syringe. ?? Screw the cap back on the drain tube. Use a new cap if you are not sure the old one is clean. ?? Remove your gloves and throw both the syringe and your gloves in the trash. How to Flush Your Drain Please Note: Depending on where your drain site is, your care team might have used a connector for your drain that looks like the one below. It does not have a stopcock. Follow these steps to flush this type of drain tube 1. Wash hands: The person cleaning the drain tube should wash their hands with soap and water or hand still cleaner tube. They can also put on a new pair of medical gloves if they want to. 2. Close the clamp: Close the plastic clamp. This makes sure the fluid goes into the part of the tube that's inside the body - and not straight into the drainage bag. 3. Open saline package: Open the package of saline in a syringe. 4. Clean the port: Clean the needleless port with an alcohol wipe. If you don't have alcohol wipes,use warm soapy water and a clean cloth. Hold the drain securely with one hand, then scrub the port back and forth for 15 seconds to remove germs. 5. Attach the syringe: Attach the syringe to the needleless port with a [id number] motion. 6. Flush the tube: Push on the end of the saline syringe to flush the fluid through the tube. 7. Remove and dispose: Untwist the empty syringe and throw it away. (Next time you flush, use a newsyringe.) 8. Unclamp the clamp: When you do this, you should see the saline you just flushed flow into the drainage bag. (You might also see pus or blood mixed with the saline going into the bag.) Flushing the tube as ordered by your doctor helps keep your tube from getting blocked. If your drain does have a stopcock, follow the instructions in the section labeled ?Flushable Drain Tube.? Bathing ?? Do not take a tub bath or swim or sit in a hot tub while you have a drain tube. IF this is unavoidable, cover the entire site with an occlusive waterproof dressing to prevent it from getting wet. ?? Do take showers, but keep the area around the drain tube dry. Keep it dry by taping a piece of plastic wrap over it or by wrapping plastic wrap around your body to cover it. Antibiotics ?? Your doctor may want you to take an antibiotic. ?? Follow the instructions on the antibiotic medicine bottle. ?? Make sure you take all of the antibiotic. Don?t stop taking it before you have finished all the pills unless your doctor tells you. Follow up visit ?? It is important to return for a follow-up visit in 1-2 weeks to have your drain tube checked. ?? Write down any questions you have for the doctor and take them with you. ?? Make a list of the medicines you are taking and take it with you, or take in the actual medicines in their original bottles. [facility], 1st floor [address], [address] [place] [address] * Nursing Note - Arsh Mueller RN - 06/04/2024 10:47 AM EDT Images from the original note were not included. Vascular & Interventional Radiology Nurse Navigator Note Accordion Drain Care - Vascular & Interventional Radiology (VIR) *If patient is discharged with IR-placed drain, primary floor/bedside RN to educate patient/family on drain care and provide the following supplies (per drain) to patient at discharge. *If any supply is not available in floor stock, contact Materials [phone]. *Saline flushes can be supplied via [facility] Beds. About the accordion drainage system This drain helps remove fluid from a wound or from a space in your body. The tube stays in until the fluid slows down. The bag has a 1-way valve at the top. This keeps air and fluid out of the wound. Empty the bag at least once a day (at the same time each day) or any time it is full. Supplies you will take home Before you to home, we will give you these supplies (for each drain): 30 saline flushes (10 ml each) 30 alcohol pads 8 split dressing gauze 8 Tegaderm dressing (if not allergic) Medical tape (if not allergic) Extra drainage bag for each drain 2 stopcock valves 8 saline lock caps Graduated cylinder (1 per drain) Printed drainage log How to care for the drain Flush the drain with 10 ml normal saline every 12 hours. Check it each day. Record input and output on the Drainage Log. Track how much saline you flush in and how much fluid comes out. Try to do this at the same time each day. Take the Log with you to your follow-up visit. Use accordion suction - follow our instructions. Once the output is less than 10 ml a day for 48 hours, it may be time to take out the drain. Contact the [facility] at [phone], or discuss at your next follow-up visit. Clean the drain site at least once a week, or if it gets wet or dirty. Use warm soapy water and a clean cloth. Let it completely air dry before putting on a clean dressing. Apply a new dry dressing around the drain site. A large IV dressing should work best. Check your skin. If the skin near the drain is red or itchy, clean the area more often until it gets better. For example, clean the site twice a day. Attach the drain tube to your skin to keep it in place. Do this whether or not it is stitched in place. Keep the drain system dry. Follow up with [facility] at [phone] for appointments or questions. Follow the [id number] directions in the Flushable Drain Care handout. These directions will be printed and given to you before you leave the hospital. How to empty the drain Wash your hands thoroughly with soap and water. Unpin the drain from your clothes. Make sure it hangs below the drain site. Empty the drain bag. Pour fluid into a measuring container. Write the amount of drainage on your Log. If you have more than 1 drain, track them on separate sheets. Total the daily drainage at the same time each day or night. Bring all your Drainage Logs to your next clinic visit. Do not let the emptying valve touch the container or any other surface. This helps prevent infection. Measure the fluid, then pour it into the toilet. Gently squeeze air out of the bag and close it. Pin the drain back onto your clothes to keep it from being pulled out. Wash your hands after emptying drainage. This helps prevent infection. Squeeze the accordion to get the fluid draining. Once it is full, repeat these steps. Follow up and other appointments with the [facility] First follow-up visit. We will call you to schedule a follow-up visit with the [facility]iology Clinic. You should be seen in our clinic within 2 weeks after leaving the hospital. If you have not been contacted to schedule this appointment, please contact the [facility] at [phone]. To schedule or reschedule a clinic visit, call [phone]. To reschedule a procedure, call our schedulers at [phone], option 4. [facility] location and phone number [facility], 1st floor [address], [address] [place], [place] [phone] In case of emergency For any emergency, please go to the nearest Emergency Room or dial 911. If you have questions or concerns about the drain Tuesday-Tuesday, 8 a.m.-4:30 p.m., call the [facility] at [phone]. After hours, weekends, and holidays, call [phone]. Ask for the Interventional Radiology provider relocation director. Drainage Log You must keep a daily log of your drain output. Each day, log the output from drain. Remember to subtract the amount of saline injected into catheter. Bring this log to your follow-up visits. Your name: Date Time Volume (in mL) Color of drainage Notes * Clinician Note - Keisha Sabillon - 06/04/2024 10:24 AM EDT Occupational Therapy Attempt Patient Name: Rere Hunter Today's Date: 06/04/2024 Patient was attempted to be seen by occupational therapy 06/04/2024 for OT Treatment however patientoff the floor. Occupational therapy team will follow-up when patient is available. Written by Keisha Sabillon on 06/04/24 at 11:47 AM. * Clinician Note - Duane Amor - 06/04/2024 10:23 AM EDT Physical Therapy Attempt Patient Name: Rere Hunter Today's Date: 06/04/2024 Patient was attempted to be seen by physical therapy 06/04/2024 for PT Treatment however patient offthe floor. Physical therapy team will follow-up when patient is available. Written by Duane Amor on 06/04/24 at 10:23 AM. * Post-Procedure Note - Don Hernandez MD - 06/04/2024 10:18 AM EDT Vascular and Interventional Radiology Brief Postprocedure Note Attending: Dr. Elmore Supply Officer: None Pre-operative Diagnosis: Perisplenic fluid collection Post-operative Diagnosis: same Type of Anesthesia: Conscious Sedation Description of Findings: see separate PACS report Technical/Surgical Procedures Used: CT guided drain placement Complications: None Estimated Blood Loss: minimal Procedure Events Event Event Time Sedation Start 06/04/2024 10:00 AM See detailed result report with images in PACS. The patient tolerated the procedure well without incident or complication and is in stable condition. * Pre-Procedure Note - Don Hernandez MD - 06/04/2024 9:25 AM EDT Vascular and Interventional Radiology Preprocedure Note Indication for procedure: There were no encounter diagnoses. Relevant review of systems: NA Relevant Labs: Lab Results Component Value Date CREATININE 0.48 (L) 06/03/2024 EGFR 112.7 06/03/2024 INR 1.0 05/23/2024 Planned Sedation/Anesthesia: Moderate Airway assessment: normal Directed physical examination: GENERAL: awake and alert HENT: Normocephalic and atraumatic PULMONARY: normal respiratory effort, symmetric chest rise CARDIOVASCULAR: Warm, well perfused ABDOMINAL: Soft, nontender SKIN: No rashes NEURO: No focal deficits PSYCH: Normal mood and affect. Mallampati: II (hard and soft palate, upper portion of tonsils anduvula visible) ASA Score: ASA 3 - Patient with moderate systemic disease with functional limitations Benefits, risks and alternatives of procedure and planned sedation have been discussed with the patient and/or their litigation claim representative. All questions answered and they agree to proceed. * H&P - Don Hernandez MD - 06/04/2024 9:25 AM EDT Images from the original note were not included. Chief Concern & History Of Present Illness Rere Hunter is a 53 y.o. female with a past medical history of HTN, HLD, COPD, GERD, tobaccouse, and CAD who presented for chest pain on 05/01 She had a 4v CABG on 05/06 complicated by post-op ileus. SGE consulted for contained perforation (stomach versus colon) seen on CT. Interval CT scan showed progression of fluid collection between the stomach and colon, with contrast in the collection suggesting colonic perforation. On 05/23 she underwent an exploratory laparotomy, extended left colectomy and end colostomy creation for colonic perforation. Her WBC was persistently 33. She had a CT on 06/01 with perisplenic fluid collection extending alongthe paracolic gutter. Small left pleural effusion. Wall thickening and surrounding fat stranding involving the rectal stump and distal small bowel segments in the pelvis. Small partially marginated fluid collection in the lower abdomen She presents for CT guided fluid collection drainage with possible tube placement. Past Medical History She has a past medical history of Anxiety, COPD (chronic obstructive pulmonary disease) ([facility] (05/01/2024), Depression, GERD (gastroesophageal reflux disease) (05/01/2024), Hyperkalemia (05/06/2024), On mechanically assisted ventilation ([facility]) (05/06/2024), Tobacco use (05/01/2024), and Tremor (05/01/2024). Surgical History She has a past surgical history that includes section, classic; Cholecystectomy; Shoulder surgery; Abdominal adhesion surgery; Hand surgery (Right); and Coronary artery bypass graft (05/06/2024). Family History Family History[1] Social History She reports that she has been smoking cigarettes. She has never used smokeless tobacco. She reportsthat she does not currently use alcohol. She reports that she does not currently use drugs. Occupational History Occupational history[2] Employer: No address on file. Travel History Relevant International Travel History: Travel Screening No screening recorded since 06/03/24 0000 Travel History Travel since 05/04/24 No documented travel since 05/04/24 VACCINE/DOSE Flu Tetanus Pneumovax Shingles Allergies Latex and Oxycodone Medications Current Medications[3] Review of Systems Negative unless otherwise noted in HPI above. Physical Exam GENERAL: awake and alert HENT: Normocephalic and atraumatic PULMONARY: normal respiratory effort, symmetric chest rise CARDIOVASCULAR: Warm, well perfused ABDOMINAL: Soft, nontender SKIN: No rashes NEURO: No focal deficits PSYCH: Normal mood and affect. Last Recorded Vitals There were no vitals taken for this visit. Relevant Results CBC Lab Results Component Value Date WBC 20.40 (H) 06/03/2024 HGB 9.2 (L) 06/03/2024 HCT 28.8 (L) 06/03/2024 PLT 689 (H) 06/03/2024 Coags Lab Results Component Value Date APTT 41 (H) 05/17/2024 INR 1.0 05/23/2024 BMP Lab Results Component Value Date NA 130 (L) 06/03/2024 K 3.3 (L) 06/03/2024 CL 98 06/03/2024 CO2 23 06/03/2024 BUN 12 06/03/2024 CREATININE 0.48 (L) 06/03/2024 LFT AST ?? AlkPhos ?? T Prot ?? ALK ?? Bili ?? Alb ?? D.Bili ?? HOURS) Assessment/Plan Rere Hunter is a 53 y.o. female with a past medical history of HTN, HLD, COPD, GERD, tobaccouse, and CAD with ileus after 4 v CABG complicated by colonic perforation now s/p left colectomy with perisplenic fluid collection extending to the paracolic gutter. She presents for CT guided fluid collection drainage with possible tube placement. Perisplenic fluid collection Leukocytosis Colonic perforation s/p left colectomy -relevant labs and imaging reviewed -Proceed with CT guided fluid collection drainage with possible tube placement. Medically Ready for Discharge:Anticipated Today [1] No family history on file. [2] [3] No current facility-administered medications for this visit. No current outpatient medications on file. Facility-Administered Medications Ordered in Other Visits Medication Dose Route Frequency Provider Last Rate Last Admin acetaminophen (Tylenol) tablet 500 mg 500 mg Oral q6h [facility] Radha Dickerson DO 500 mg at Adult 2-in-1 TPN 65 mL/hr Intravenous Continuous Maite Austin MD 65 mL/hr at 06/03/242126 New Bag at 06/03/242126 aspirin chewable tablet 81 mg 81 mg Oral Daily Sidney Jackson MD 81 mg at 06/03/24 0959 benzocaine-menthol (Chloraseptic) 6-10 MG lozenge 1 lozenge 1 lozenge Mouth/Throat q4h PRN Dave Baird DO 1 lozenge at 05/17/24 1624 buPROPion XL (Wellbutrin XL) 24 hr tablet 300 mg 300 mg Oral Daily Sidney Jackson MD 300 mg at 06/03/24 0959 calcium carbonate (Tums) chewable tablet 500 mg 500 mg Oral 4x daily PRN Shola Sheridan APRN 500 mg at 05/31/24 1054 citalopram (CeleXA) tablet 40 mg 40 mg Oral Daily Radha Dickerson DO 40 mg at 06/03/24 0959 fat emulsion fish/plant based (SMOFlipid) 20 % IV infusion 250 mL 250 mL Intravenous Every other day Maite Austin MD 20.8 mL/hr at 06/03/2459 250 mL at 06/03/24 09 [Held by provider] heparin (porcine) injection 5,000 Units 5,000 Units Subcutaneous q8h Sundeep Newsome MD 5,000 Units at 06/03/242122 hydrALAZINE (Apresoline) injection 10 mg 10 mg Intravenous q6h PRN Jorge Luis La MD 10 mg at 05/20/24 1316 HYDROmorphone (Dilaudid) injection 0.5 mg 0.5 mg Intravenous q2h PRN Sidney Jackson MD 0.5 mg at 06/04/24 0119 Or HYDROmorphone (Dilaudid) injection 1 mg 1 mg Intravenous q2h PRN Sidney Jackson MD 1 mg at 06/03/24 2147 hydrOXYzine pamoate (Vistaril) capsule 25 mg 25 mg Oral q6h PRN Shola Sheridan APRN 25 mg at 06/03/242122 ipratropium-albuterol (Duo-Neb) 0.5-2.5 mg/3 mL nebulizer solution 3 mL 3 mL Nebulization q6h PRN Trinity Yousif APRN 3 mL at 05/17/24 1551 lidocaine (Lidoderm) 5 % patch 2 patch 2 patch Apply externally q24h Abhishek Montalvo MD 1 patch at 06/03/24 1834 melatonin tablet 6 mg 6 mg Oral Nightly Sidney Jackson MD 6 mg at 06/03/24 212 methocarbamol (Robaxin) tablet 500 mg 500 mg Oral TID Radha Dickerson, DO 500 mg at 06/03/242122 metoprolol tartrate (Lopressor) tablet 25 mg 25 mg Oral BID Radha Dickerson, DO 25 mg at 06/03/242122 ondansetron (Zofran) injection 4 mg 4 mg Intravenous q6h PRN Jorge Luis La MD 4 mg at 06/03/242121 oxyCODONE (Roxicodone) immediate release tablet 5 mg 5 mg Oral q6h PRN Sidney Jackson MD 5 mg at 05/30/242008 Or oxyCODONE (Roxicodone) immediate release tablet 10 mg 10 mg Oral q6h PRN Sidney Jackson MD 10 mg at 06/03/242249 pantoprazole (Protonix) EC tablet 40 mg 40 mg Oral Daily Shola Sheridan APRN 40 mg at 06/03/24 0959 phenol (Chloraseptic) 1.4 % mouth/throat spray 1 spray 1 spray Mouth/Throat q2h PRN Sidney Jackson MD1 spray at 05/18/24 1248 piperacillin-tazobactam (Zosyn) 4.5 g in sodium chloride 0.9% 100 mL IVPB (vial adapter required) 4.5 g Intravenous q6h Shailesh Tang PA 36.7 mL/hr at 06/04/24 0554 4.5 g at 06/04/24 0554 potassium chloride (Klor-Con) packet 40 mEq 40 mEq Oral Once Maite Austin MD primidone (Mysoline) tablet 50 mg 50 mg Oral BID Radha Dickerson DO 50 mg at 06/03/24 2250 rosuvastatin (Crestor) tablet 40 mg 40 mg Oral Nightly Sidney Jackson MD 40 mg at 06/03/243 simethicone (Mylicon) chewable tablet 120 mg 120 mg Oral q6h PRN Sidney Jackson MD 120 mg at 250 sodium chloride ([place]) 0.65 % nasal spray 1 spray 1 spray Each Nostril PRN Edson Pringle MD sodium chloride 0.9 % flush 10 mL 10 mL Intravenous q12h Sidney Jackson MD 10 mL at 06/03/24 1609 sodium chloride 0.9 % flush 10 mL 10 mL Intravenous q1h PRN Sidney Jackson MD sodium chloride 0.9 % flush 20 mL 20 mL Intravenous q1h PRN Sidney Jackson MD Cosigned by Mayte Elmore MD at 06/04/2024 9:43 AM EDT Associated attestation - Mayte Elmore MD - 06/04/2024 9:43 AM EDT Signature Only * Progress Notes - Heather Ram - 06/04/2024 9:16 AM EDT Case Management Adult Progress Note Rere Hunter 53 y.o. female CSN: [id number] Admission: 05/01/2024 11:01 PM Primary Problem: CAD, multiple vessel Anticipated Discharge Date: TBD Has Discharge Plans Changed? No Housing Circumstances: Not Applicable Housing Circumstances Action Taken: Other N/A Additional Comments SW spoke with primary team this date re: pt's plan of care. According to primary team, this pt is not medically stable for DC this date and is not anticipated to be stable within 72 hrs. Pt to OR this date for IR abscess drainage. Pt will need to be on IV abx for 4 days post-drainage. See medical notes for more detail. No further SW concerns identified at this time. SW will monitor pt's progress and will follow up with DC planning and needs as appropriate. NAYA Albarran * Progress Notes - Carmelita Snyder MD - 06/04/2024 8:00 AM EDT 06/04/24 Rere Hunter HPI CONSULT: colon perforation and fluid collection between stomach and colon 53F HTN, HLD, COPD, GERD, tobacco use, and CAD s/p 4v CABG on 05/06 04/09: ex lap, extended L colectomy and end colostomy creation ([place]) Interval: VSS. Abdominal drain 10 (0), WV 0 (0). Colsotomy 125 (350). Dressings removed from aroundthe drain. Erythematous, tender around drain site. Patient reports nervousness about the IR procedure, encouraged. Edited by: Carmelita Snyder MD at 06/04/2024 0803 Relevant review of systems was obtained as able and is negative unless stated above in HPI. Vital signs: Vitals: 06/03/24 2310 BP: 106/67 Pulse: 83 Resp: 19 Temp: 36.7 ??C (98.1 ??F) SpO2: 97% Physical Exam Constitutional: General: She is not in acute distress. HENT: Head: Normocephalic. Eyes: Extraocular Movements: Extraocular movements intact. Cardiovascular: Rate and Rhythm: Normal rate. Pulses: Normal pulses. Pulmonary: Effort: Pulmonary effort is normal. No respiratory distress. Abdominal: General: Abdomen is flat. Palpations: Abdomen is soft. Tenderness: There is abdominal tenderness. Comments: WV to suction. Erythema and tenderness around LENA drain site. Musculoskeletal: General: Normal range of motion. Cervical back: Normal range of motion. Skin: General: Skin is warm. Neurological: Mental Status: She is alert and oriented to person, place, and time. Psychiatric: Behavior: Behavior normal. Intake/Output Summary (Last 24 hours) at 06/04/2024 0803 Last data filed at 06/04/2024 0554 Gross per 24 hour Intake 111 ml Output 2235 ml Net -2124 ml Lines/Drains/Tubes: Patient Lines/Drains/Airways Status Active Airway None Output by Drain (mL) 06/02/24 0700 - 06/02/24 18506/02/24 1900 - 06/03/24 0659 06/03/24 07 - 06/03/24 18506/03/24 1900 - 06/04/24 0659 06/04/24 0700 - 06/04/24 0803 Closed/Suction Drain 1 Left Abdomen Bulb 19 Fr. 0 10 Labs in last 18 hours: CBC WBC 22.10 (H) Hb 9.4 (L) Plt 716 (H) Hct 29.3 (L) ANC ?? INR ??, PTT ??, Anti-Xa ?? MCV 93 BMP Na 133 (L) Cl 101 BUN 12 Glu 105 (H) K 3.8 Co2 24 Cr 0.53 (L) Ca 7.7 (L) iCa ?? Mg 2.1, Phos ?? Lactate ?? LFT AST ?? AlkPhos ?? T Prot ?? ALK ?? Bili ?? Alb ?? D.Bili ?? Lab Trends: H/H Results from last 7 days Lab Units 06/04/24 0556 06/03/24 0108 06/02/24 0102 HEMOGLOBIN g/dL 9.4* 9.2* 9.2* HEMATOCRIT % 29.3* 28.8* 28.7* INR Cr Results from last 7 days Lab Units 06/04/24 0556 06/03/24 0108 06/02/24 0708 CREATININE mg/dL 0.53* 0.48* 0.60 Medications reviewed. Vital signs reviewed. Labs reviewed. Radiography reviewed. Assessment and Plan: Medical Problems and Relevant Plans Hospital Problems POA * (Principal) CAD, multiple vessel Yes Overview Addendum 05/23/2024 8:44 AM by Marybel Suarez APRN Patient presented to OSH on 05/01/24 c/o chest pain, LHC reveal mvCAD S/p CABG with Dr. Autsin on 05/07 Anxiety and depression Yes Overview Addendum 05/23/2024 8:43 AM by Marybel Suarez APRN Continue home bupropion XL 300 mg daily Continue home citalopram 40 mg daily Continue PRN hydroxyzine 25 mg q6 COPD (chronic obstructive pulmonary disease) ([facility]) Yes Overview Addendum 05/23/2024 8:43 AM by Marybel Suarez APRN Duo nebs q6 Wean O2 for SPO2 goal >88% NSTEMI (non-ST elevated myocardial infarction) ([facility]) Yes Overview Addendum 05/22/2024 11:00 AM by Jose Aburto MD Diagnosed at OSH with elevated troponins of 0.05 to 0.23 to 0.16 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, 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 Repeat troponins pending 05/07 POD 1 4V CABG 05/09 EKG ordered and reviewed no signs of ST changes 05/10 ST 105 05/11 ST 100-105 GERD (gastroesophageal reflux disease) Yes Overview Addendum 05/14/2024 2:06 PM by Cydney Luu MD Continue Protonix 40 mg daily 05/07 extubated, no on home PPI dc'd 05/08 pt denies any GERD symptoms 05/09 + PPI for reflux 05/10 docusate, metoclopramide, miralax, senna, simethicone, continue NG to low intermitted, CLD forpt comfort, passing gas 05/11 as above denies reflux today NG clamp trial 05/14 PPI per blue surgery rec for blood tinged NG output Leukocytosis Yes Overview Addendum 05/23/2024 8:50 AM by Marybel Suarez, ARASH Remains febrile with elevated EBC Cultures ordered and pending Hyperlipidemia Yes Overview Signed 05/23/2024 8:47 AM by Marybel Suarez, AUTOMOTIVE PORTER Restart statin when no longer NPO THOM (obstructive sleep apnea) Yes Overview Addendum 05/23/2024 8:45 AM by Marybel Suarez, AUTOMOTIVE PORTER Refusing home CPAP remains on NC S/P CABG x 4 Not Applicable Overview Addendum 05/23/2024 8:45 AM by Marybel Suarez, 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 Austin Aspirin, statin, beta stacey as clinically appropriate Hypertension Yes Overview Addendum 05/23/2024 8:47 AM by Marybel Suarez, AUTOMOTIVE PORTER Metop IV while NPO Restart PO metop when appropriate Cardiac volume overload No Overview Addendum 05/18/2024 10:24 AM by Sidney Jackson MD Diuresis as clinically indicated Hypoglycemia No Overview Addendum 05/23/2024 8:46 AM by Marybel Suarez, AUTOMOTIVE PORTER Resolved once TPN started Nausea with vomiting No Overview Addendum 05/28/2024 8:26 AM by Sidney Jackson MD TPN running Advance PO diet as able Acute blood loss anemia (ABLA) No Overview Addendum 05/23/2024 8:43 AM by Marybel Suarez, AUTOMOTIVE PORTER Lab Results Component Value Date HGB 9.0 (L) 05/23/2024 CTM with daily labs Transfuse as indicated Gastric perforation (CMS/HCC) No Overview Addendum 05/28/2024 8:26 AM by Sidney Jackson MD colonic perforation. S/p ex lap with blue surgery on 05/23 On total parenteral nutrition (TPN) No Overview Addendum 05/28/2024 11:41 AM by Sidney Jackson MD Started on 05/20 Obtaining PO calorie count. Will DC TPN when able. Ileus (CMS/HCC) No Overview Addendum 05/28/2024 8:25 AM by Sidney Jackson MD S/p colectomy & end colostomy 05/23 2/2 perforation Electrolyte abnormality Yes Overview Signed 05/23/2024 8:50 AM by Marybel Suarez, ARASH - monitor and replace prn Post-op pain Unknown Overview Addendum 05/25/2024 10:12 AM by Dave Baird DO Abdominal tenderness and pain 11/23 Increase dilaudid IV ketamine Delirium Unknown Overview Signed 05/29/2024 2:56 PM by Sidney Jackson MD Hospital delirium Delirium precautions Colon perforation (CMS/HCC) Unknown Overview Addendum 05/24/2024 11:04 AM by Jose Aburto MD Noted on CT scan 05/23/24 To OR with blue surgery S/p left colectomy and end colostomy Plan: [ ] pull drain 06/04 when IR drain in - IR drain 06/04 - WV (two black + bridge) MWF by nursing - normal ostomy output, reg diet - Follow SGE LENA output (superior drain in abscess cavity near pancreas) - zosyn Edited by: Carmelita Snyder MD at 06/04/2024 0802 Carmelita Snyder MD Cosigned by Graciela Nelson MD at 06/11/2024 3:44 PM EDT Associated attestation - Graciela Nelson MD - 06/11/2024 3:44 PM EDT I saw and evaluated the patient with the resident/fellow. I discussed the case with the resident/fellow and agree with the findings and plan as documented. * Progress Notes - Shola Sheridan, AUTOMOTIVE PORTER - 06/03/2024 1:40 PM EDT CVT Progress Note 24 Hour Events/HPI: No acute events or issues overnight. Patient remained hemodynamically stable, afebrile, and rested comfortably overnight. WBC improving. Continues to report poor appetite. Agreeable to plan for IR drainage tomorrow. Review of Systems: A complete ROS was obtained. All were negative except as noted in HPI. Objective: All laboratory data, images, tracings, and vital sign data for past 24 hours are personally reviewed unless otherwise noted. @PATIENTWT@ , Weight: 61.1 kg (134 lb 12.8 oz) , Ht Readings from Last 1 Encounters: 05/31/24 1.549 m (5' 0.98 ) , Body mass index is 22.71 kg/m??. VITALS (last 24h) Temp: [36.7 ??C (98 ??F)-37.1 ??C (98.7 ??F)] 36.8 ??C (98.2 ??F) Heart Rate: [80-89] 89 Resp: [14-22] 20 BP: (106-123)/(70-75) 119/75 Visit Vitals BP 119/75 (BP Location: Right arm, Patient Position: Lying) Pulse 89 Temp 36.8 ??C (98.2 ??F) (Oral) Resp 20 Ht 1.549 m (5' 0.98 ) Wt 54.5 kg (120 lb 2.4 oz) SpO2 99% BMI 22.71 kg/m?? Smoking Status Every Day BSA 1.53 m?? I & O Summary Intake/Output Summary (Last 24 hours) at 06/03/2024 1340 Last data filed at 06/03/2024 1243 Gross per 24 hour Intake 1163 ml Output 1500 ml Net -337 ml LABS CBC WBC 20.40 (H) Hb 9.2 (L) Plt 689 (H) Hct 28.8 (L) ANC ?? INR ??, PTT ??, Anti-Xa ?? BMP Na 130 (L) Cl 98 BUN 12 Glu 117 (H) K 3.3 (L) Co2 23 Cr 0.48 (L) Ca 7.7 (L) iCa ?? Mg 2.0, Phos ?? Lactate ?? LFT AST ?? AlkPhos ?? T Prot ?? ALK ?? Bili ?? Alb ?? D.Bili ?? HOURS) MEDICATIONS acetaminophen, 500 mg, Oral, q6h LINDA aspirin, 81 mg, Oral, Daily buPROPion XL, 300 mg, Oral, Daily citalopram, 40 mg, Oral, Daily fat emulsion fish/plant based, 250 mL, Intravenous, Every other day heparin (porcine), 5,000 Units, Subcutaneous, q8h lidocaine, 2 patch, Apply externally, q24h melatonin, 6 mg, Oral, Nightly methocarbamol, 500 mg, Oral, TID metoprolol tartrate, 25 mg, Oral, BID pantoprazole, 40 mg, Oral, Daily piperacillin-tazobactam, 4.5 g, Intravenous, q6h potassium chloride, 40 mEq, Oral, Once primidone, 50 mg, Oral, BID rosuvastatin, 40 mg, Oral, Nightly sodium chloride, 10 mL, Intravenous, q12h Adult 2-in-1 TPN, 65 mL/hr, Last Rate: 65 mL/hr (06/02/24 2207) PRN medications: benzocaine-menthol, calcium carbonate, hydrALAZINE, HYDROmorphone OR HYDROmorphone, hydrOXYzine pamoate, ipratropium-albuterol, [DISCONTINUED] ondansetron ODT OR ondansetron OR [DISCONTINUED] ondansetron, oxyCODONE OR oxyCODONE, phenol, simethicone, sodium chloride, sodium chloride, sodium chloride Physical Exam: GENERAL: 53F. NAD on RA EYES: No scleral icterus or conjunctivitis HENT: Atraumatic, normocephalic, nares patent, mucus membranes moist NECK: Supple, trachea midline RESP/CHEST: Symmetric expansion; non labored. CTA bilaterally. Midsternal incision CDI. Sternum stable. CARD: regular rate and rhythm, normal S1 and S2, no murmur, rub, or gallop, Pedal pulses palpable +2. , no JVD. No edema Extremities: No cyanosis or clubbing. GI: Soft, Nontender, nondistended. BS present and normoactive x 4 quadrants. Midline abd incision with wound vac in place. LENA x 1 to left abd. Colostomy with ostomy bag in place SKIN: No rash. NEURO: AAOx4. Motor intact and no focal deficits PSYCH: Mood and affect congruent and appropriate to situation. Assessment and Plan: CAD, multiple vessel NSTEMI (non-ST elevated myocardial infarction) - Patient presented to OSH on 05/01/24 c/o chest pain - Diagnosed at OSH with elevated troponins of 0.05 to 0.23 to 0.16 [facility] reveal mvCAD - S/p CABG x4 with Dr. Austin on 05/06 - continue asa, statin, metoprolol - Routine post cardiac surgery care: sternal precautions x 6 weeks, PT, bowel regimen to prevent constipation and aggressive pulmonary toilet. Anxiety and depression - Continue home bupropion XL 300 mg daily - Continue home citalopram 40 mg daily COPD (chronic obstructive pulmonary disease) - Duo nebs q6 prn - Wean O2 for SPO2 goal >88% GERD (gastroesophageal reflux disease) - 05/07 extubated, no on home PPI dc'd - 05/08 pt denies any GERD symptoms - 05/09 + PPI for reflux - 05/10 docusate, metoclopramide, miralax, senna, simethicone, continue NG to low intermitted, CLD for pt comfort, passing gas - 05/11 as above denies reflux today NG clamp trial - 05/14 PPI per blue surgery rec for blood tinged NG output Leukocytosis Abdominal abscess - 05/31: WBC 26.51 - 06/01: WBC 33.03. CT abd per blue surgery - 06/02: WBC 33.90. CT yd with abscess. Started on zosyn yd evening. IR consulted for abscess drainage. - 06/03: WBC 20.40. Plan for IR procedure tomorrow - afebrile - monitor Hyperlipidemia - Statin THOM (obstructive sleep apnea) - Refusing home CPAP Hypertension - metoprolol Cardiac volume overload - diuresis prn Hypoglycemia - Resolved once TPN started Nausea with vomiting - Advance PO diet as able - prn zofran Acute blood loss anemia (ABLA) - H/H 10.2/31.0 - 06/01: H/H 9.7/29.3 - 06/03: H/H 9.2/28.8 - Monitor and transfuse prn Gastric perforation Colonic perforation Ileus - S/p ex lap with left colon resection with end colostomy with blue surgery on 05/23 - 06/01: CT abd per Blue surgery giving increasing WBC - 06/02: CT yd with abscess. Started on zosyn yd evening. IR consulted for abscess drainage. Plan for IR procedure on Tuesday On total parenteral nutrition (TPN) - Started on 05/20 - 05/31: Calorie count completed and demonstrated pt was only meeting 12-13% of calorie requirements. - Continue TPN. - Promote PO intake Electrolyte abnormality - monitor and replace prn Post-op pain - Abdominal tenderness and pain - MMPC Delirium - Delirium precautions Plan: Continue TPN Continue zosyn NPO p MN for IR abscess drainage tomorrow Cardiothoracic Surgery [phone] * Progress Notes - Uriah Sherman, PharmD - 06/03/2024 9:25 AM EDT Pharmacist TPN Progress Note Patient: Rere Hunter Age: 53 y.o. Admission Date: [id number] Subjective/Objective/Hospital Course: 53 y.o. female with PMHx of CAD, HTN, COPD, GERD, tremor, anxiety, depression, and tobacco use, who is currently hospitalized under the care of the CVT surgery team after having a CABG on 05/06/24. Since surgery she has developed nausea, vomiting, and abdominal pain with imaging findings consistent with ileus. Patient has had inadequate energy intake likely related to ileus and has been NPO x [address] 05/20 showed intraabdominal fluid adjacent to stomach concerning for possible perforation. UGI with no perforartion. TPN consult for ileus + possible leak. -- 05/17: TPN consult placed -- 05/19: TPN initiated -- 05/23: CT overnight with PO contrast more convincing for colonic perforation instead of stomach perf. OR with general surgery for left hemicolectomy and colostomy creation. -- 05/25: CLD ordered late afternoon -- 05/28: PO diet ordered -- 05/29: S/P Exploratory laparotomy, extensive lysis of adhesions, left colectomy(performed by colorectal surgery), end colostomy creation, abdominal washout, application of negative pressure wound VAC therapy to skin and soft tissues on 05/23 d/t colon perforation. -- 05/31: Calorie count results: 3-day ave = ~206kcal; 6g protein. Patient meeting ~12-13%kcal; 8% protein needs. 06/02: CT scan showed abscess, made NPO for potential drainage soon 06/03: pending IR drain on 06/04, will be NPO prior Problem List[1] Medical History[2] Surgical History[3] Allergies: Latex and Oxycodone LABS: Results from last 7 days Lab Units 06/03/24 0108 06/02/24 0708 06/02/24 0102 06/01/24 0120 05/31/24 0250 05/30/24 0513 05/29/24 0700 05/29/24 0535 05/28/24 0047 GLUCOSE mg/dL 117* 111* 507* 495* 107* 112* 104* 600* 106* BUN mg/dL 12 13 11 12 13 14 13 12 15 CREATININE mg/dL 0.48* 0.60 0.60 0.54* 0.52* 0.52* 0.58* 0.59* 0.66 SODIUM mmol/L 130* 130* 125* 126* 129* 131* 132* 128* 137 POTASSIUM mmol/L 3.3* 3.6 4.8 4.9 3.7 3.7 4.0 5.1* 4.3 CHLORIDE mmol/L 98 97 93* 95* 95* 96* 97 95* 102 CO2 mmol/L 23 21* 20* 20* 25 24 25 22 26 CALCIUM mg/dL 7.7* 7.9* 7.9* 8.0* 8.3* 8.0* 8.3* 8.1* 8.2* PHOSPHORUS mg/dL -- -- 5.8* 5.2* 4.4 4.3 4.1 5.6* 3.8 MAGNESIUM mg/dL 2.0 -- 2.3 2.3 2.0 1.9 -- 2.1 1.9 Results from last 7 days Lab Units 06/03/24 0108 06/02/24 0102 06/01/24 0120 05/31/24 0250 05/30/24 0513 05/29/24 0535 05/28/24 0047 WBC 10*3/uL 20.40* 33.90* 33.03* 26.51* 23.21* 22.52* 25.00* HEMOGLOBIN g/dL 9.2* 9.2* 9.7* 10.2* 9.7* 9.3* 9.7* HEMATOCRIT % 28.8* 28.7* 29.3* 31.0* 29.7* 28.9* 30.1* PLATELETS 10*3/uL 689* 702* 644* 670* 603* 528* 442* Results from last 7 days Lab Units 06/02/24 0102 06/01/24 0120 05/31/24 0250 05/30/24 0513 05/29/24 0535 05/28/24 0047 ALBUMIN g/dL 2.2* 2.2* 2.5* 2.3* 2.0* 2.1* Nutrition Labs: Lab Results Component Value Date TRIG 76 05/19/2024 BILITOT 0.9 05/23/2024 ALBUMIN 2.2 (L) 06/02/2024 PREALBUMIN 16.8 (L) 06/03/2024 HGBA1C 5.3 05/01/2024 CRP 225.3 (H) 05/17/2024 IRON 25 (L) 05/14/2024 TIBC 156 (L) 05/14/2024 Microbiology Results Procedure Component Value Units Date/Time Blood Culture (Aerobic/Anaerobet Set) [[id number]] Collected: 05/23/24 1020 Order Status: Completed Specimen: Blood, Venous Updated: 05/24/24 1101 Culture No growth at day 1 Fungal Blood Culture [[id number]] Collected: 05/17/241812 Order Status: Completed Specimen: Blood, Venous Updated: 05/24/24 0638 Culture No Fungal Growth at 1 Week AFB Blood Culture [[id number]] Collected: 05/17/241812 Order Status: Completed Specimen: Blood, Venous Updated: 05/24/24 0638 AFB Culture No Mycobacterial Growth at 1 Week Vitals: Visit Vitals BP 123/74 (BP Location: Right arm, Patient Position: Lying) Pulse 80 Temp 36.8 ??C (98.2 ??F) (Oral) Resp 20 [place] Coma Scale Score: 15 [place] Scale Score: 18 Oxygen Therapy: None (Room air) Skin Integrity: Bruising ([place] (INSURANCE VERIFIER, glued), right colostomy, s/p chest tube sites, mid-abdominal wound vac (black foam), L SVG site (INSURANCE VERIFIER and glued)) Edema: Generalized Wt Readings from Last 3 Encounters: 06/03/24 54.5 kg (120 lb 2.4 oz) 06/28/23 59 kg (130 lb) 04/26/23 62.6 kg (138 lb) Current Diet Order: Dietary Orders (From admission, onward) Start Ordered 06/04/24 0001 NPO diet Diet effective midnight 06/02/24 1203 06/02/24 1807 Adult diet Diet texture: Regular; Carbohydrate restriction: Consistent Carb 2 (80 gm max/meal); Fat restriction: Cardiac; GI: Ostomy Diet effective now References: IDDSI Diet Texture Guide Question Answer Comment Diet texture Regular Carbohydrate restriction: Consistent Carb 2 (80 gm max/meal) Fat restriction: Cardiac GI Ostomy 06/02/24 1806 05/29/24 1449 Oral nutrition supplements (Adult Diet Panel) Until discontinued Question Answer Comment Supplement frequency: Breakfast Supplement frequency: Lunch Supplement frequency: Dinner Breakfast supplement: Roque Fruit Punch Quantity for Breakfast of Roque Fruit Punch Packet One Lunch supplement: Boost Very High Calorie Vanilla Quantity for Lunch of Boost Very High Calorie - Vanilla One Dinner supplement: Roque Fruit Punch Quantity for Dinner of Roque Fruit Punch Packet One 05/29/24 1448 Current Medications acetaminophen, 500 mg, Oral, q6h LINDA aspirin, 81 mg, Oral, Daily buPROPion, 150 mg, Oral, BID FOLLOWED BY buPROPion XL, 300 mg, Oral, Daily citalopram, 40 mg, Oral, Daily fat emulsion fish/plant based, 250 mL, Intravenous, Every other day heparin (porcine), 5,000 Units, Subcutaneous, q8h lidocaine, 2 patch, Apply externally, q24h melatonin, 6 mg, Oral, Nightly methocarbamol, 500 mg, Oral, TID metoprolol tartrate, 25 mg, Oral, BID pantoprazole, 40 mg, Oral, Daily piperacillin-tazobactam, 4.5 g, Intravenous, q6h potassium chloride, 40 mEq, Oral, Once potassium chloride, 30 mEq, Oral, Once primidone, 50 mg, Oral, BID rosuvastatin, 40 mg, Oral, Nightly sodium chloride, 10 mL, Intravenous, q12h Adult 2-in-1 TPN, 65 mL/hr, Last Rate: 65 mL/hr (06/02/242206) Current Anthropometrics: Height: 154.9 cm (5' 0.98 ) Weight: 61.1 kg (134 lb 12.8 oz) [place] body weight: 47.8 kg (105 lb 4.8 oz) Adjusted ideal body weight: 52.8 kg (116 lb 5.7 oz) (126.25%) of IBW Body mass index is 25.13 kg/m??. Adjusted wt: 50.9 kg (if over 125% of IBW) CENTRAL IV Access: PICC (05/18/24) Estimated Nutritional Needs: HBE: 1153 Stress Factor: 1.2-1.4 Total Calories/day: 7575-5197 Protein (amino acids): 1.3-1.6 grams/kg Protein (Amino acids): 66-81 grams/day Measured Energy Needs: Respiratory Quotient: 06/03/2024 Plan/Recommendation: Labs reviewed and stable. Electrolytes and BG within normal limits after increasing back to TPN goal. Will continue goal TPN as patient will be intermittently NPO whileattempting to have IR drain placed. Once drain is place, recommend decreasing TPN and transitioningto PO intake, including tube feeding if necessary. GOAL TPN: DEXTROSE: 18% (281 g/day CHO) AMINO ACIDS: 5% (78 g/day - 1.51 g/kg/day Amino acids) C:A 1:3, K @ 30 mEq/L @ 65 ml/hr, with 30mg/day thiamine, MVI, and Trace elements Every other day 250ml 20% SMOF lipids 1517 Total kcal/day - 29.8 kcal/kg/day GUR: 3.83 Replace electrolytes outside of TPN Calcium and/or Phosphorus supplements MUST be in a separate line from the TPN to avoid precipitation Obtain BMP, magnesium, and Phos daily x 3days and then at least twice weekly Obtain LFT and TGLY weekly I have monitored the TPN therapy, including the labs, and have communicated any modifications with the primary medical/surgical team. Continue current TPN formula and lipid regimen as above. I have communicated the TPN plan with the IV room. Thank you! Micheal Sherman, PharmD Trauma/Emergency General Surgery [1] Patient Active Problem List Diagnosis Anxiety and depression COPD (chronic obstructive pulmonary disease) (CMS/HCC) CAD, multiple vessel NSTEMI (non-ST elevated myocardial infarction) (CMS/HCC) GERD (gastroesophageal reflux disease) Leukocytosis Hyperlipidemia THOM (obstructive sleep apnea) S/P CABG x 4 Hypertension Cardiac volume overload Hypoglycemia Nausea with vomiting Acute blood loss anemia (ABLA) Gastric perforation (CMS/HCC) On total parenteral nutrition (TPN) Ileus (CMS/HCC) Electrolyte abnormality Colon perforation (CMS/HCC) Post-op pain Delirium [2] Past Medical History: Diagnosis Date Anxiety COPD (chronic obstructive pulmonary disease) (CMS/HCC) 05/01/2024 Continue Duo nebs q6 SPO2 goal >88% Depression GERD (gastroesophageal reflux disease) 05/01/2024 Continue Protonix 40 mg daily Hyperkalemia 05/06/2024 Now resolved, pt with hypokalemia requiring replacement On mechanically assisted ventilation (CMS/HCC) 05/06/2024 Arrived to ICU intubated 05/07 extubated to 4C 05/08 resolved Tobacco use 05/01/2024 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 Complicates all aspects of care and recovery Tremor 05/01/2024 Continue home primidone 50 mg BID [3] Past Surgical History: Procedure Laterality Date ABDOMINAL ADHESION SURGERY SECTION, CLASSIC CHOLECYSTECTOMY CORONARY ARTERY BYPASS GRAFT 05/06/2024 Coronary artery bypass grafting x4 with CHOWDARY to LAD as a free graft, reverse saphenous vein graft sequential to ramus intermedius artery then to obtuse marginal artery 1, reverse saphenous vein graftto PDA.(Reda) HAND SURGERY Right Tendon repair SHOULDER SURGERY * Progress Notes - Rebel Ayala MD - 06/03/2024 8:40 AM EDT I saw this patient today on the restrepo. She continues to recover after colectomy. She has an abscess.We will get a drained as early as tomorrow with IR. She is not very hungry. I encouraged her to eat. She has a VAC on an open incision. We are following. * Progress Notes - Moni Lopez RN - 06/02/2024 4:00 PM EDT Ostomy Progress Note Visit Date: 06/02/2024 Patient Name: Rere Hunter Date of : 1970 Patient sleeping at the time of visit, packet left with sample pouch for ostomy teaching at next available opportunity. Moni Lopez RN 06/02/2024 4:00 PM * Progress Notes - Arvin Shola Corbett, [employer]TER - 06/02/2024 1:39 PM EDT CVT Progress Note 24 Hour Events/HPI: CT abd yd with evidence of abscess. Started on Zosyn. IR consulted. WBC elevated but stable. Afebrile. No acute events or issues overnight. Patient remained hemodynamically stable, afebrile, and rested comfortably overnight. Discussed plan for IR drainage. Pt agreeable. Review of Systems: A complete ROS was obtained. All were negative except as noted in HPI. Objective: All laboratory data, images, tracings, and vital sign data for past 24 hours are personally reviewed unless otherwise noted. @PATIENTWT@ , Weight: 61.1 kg (134 lb 12.8 oz) , Ht Readings from Last 1 Encounters: 05/31/24 1.549 m (5' 0.98 ) , Body mass index is 22.84 kg/m??. VITALS (last 24h) Temp: [36.6 ??C (97.9 ??F)-37.3 ??C (99.2 ??F)] 36.7 ??C (98 ??F) Heart Rate: [92-104] 94 Resp: [14-26] 24 BP: (118-130)/(70-81) 119/75 Visit Vitals BP 119/75 (BP Location: Right arm, Patient Position: Lying) Pulse 94 Temp 36.7 ??C (98 ??F) (Oral) Resp 24 Ht 1.549 m (5' 0.98 ) Wt 54.8 kg (120 lb 13 oz) SpO2 95% BMI 22.84 kg/m?? Smoking Status Every Day BSA 1.54 m?? I & O Summary Intake/Output Summary (Last 24 hours) at 06/02/2024 1339 Last data filed at 06/02/2024 0800 Gross per 24 hour Intake 2155.69 ml Output 937.5 ml Net 1218.19 ml LABS CBC WBC 33.90 (H) Hb 9.2 (L) Plt 702 (H) Hct 28.7 (L) ANC 28.51 (H) INR ??, PTT ??, Anti-Xa ?? BMP Na 130 (L) Cl 97 BUN 13 Glu 111 (H) K 3.6 Co2 21 (L) Cr 0.60 Ca 7.9 (L) iCa ?? Mg 2.3, Phos 5.8 (H) Lactate ?? LFT AST ?? AlkPhos ?? T Prot ?? ALK ?? Bili ?? Alb ?? D.Bili ?? HOURS) MEDICATIONS acetaminophen, 500 mg, Oral, q6h LINDA aspirin, 81 mg, Oral, Daily buPROPion XL, 300 mg, Oral, Daily citalopram, 40 mg, Oral, Daily fat emulsion fish/plant based, 250 mL, Intravenous, Every other day heparin (porcine), 5,000 Units, Subcutaneous, q8h lidocaine, 2 patch, Apply externally, q24h melatonin, 6 mg, Oral, Nightly methocarbamol, 500 mg, Oral, TID metoprolol tartrate, 25 mg, Oral, BID pantoprazole, 40 mg, Oral, Daily piperacillin-tazobactam, 4.5 g, Intravenous, q6h potassium chloride, 40 mEq, Oral, Once primidone, 50 mg, Oral, BID rosuvastatin, 40 mg, Oral, Nightly sodium chloride, 10 mL, Intravenous, q12h Adult 2-in-1 TPN, 40 mL/hr, Last Rate: 40 mL/hr (06/01/24 2242) Adult 2-in-1 TPN, 65 mL/hr PRN medications: benzocaine-menthol, calcium carbonate, hydrALAZINE, HYDROmorphone OR HYDROmorphone, ipratropium-albuterol, [DISCONTINUED] ondansetron ODT OR ondansetron OR [DISCONTINUED]ondansetron, oxyCODONE OR oxyCODONE, phenol, simethicone, sodium chloride, sodium chloride, sodium chloride Physical Exam: GENERAL: 54F. NAD on RA EYES: No scleral icterus or conjunctivitis HENT: Atraumatic, normocephalic, nares patent, mucus membranes moist NECK: Supple, trachea midline RESP/CHEST: Symmetric expansion; non labored. CTA bilaterally. Midsternal incision CDI. Sternum stable. CARD: regular rate and rhythm, normal S1 and S2, no murmur, rub, or gallop, Pedal pulses palpable +2. , no JVD. No edema Extremities: No cyanosis or clubbing. GI: Soft, Nontender, nondistended. BS present and normoactive x 4 quadrants. Midline abd incision with wound vac in place. LENA x 2 to left abd. Colostomy with ostomy bag in place SKIN: No rash. NEURO: AAOx4. Motor intact and no focal deficits PSYCH: Mood and affect congruent and appropriate to situation. Assessment and Plan: CAD, multiple vessel NSTEMI (non-ST elevated myocardial infarction) - Patient presented to OSH on 05/01/24 c/o chest pain - Diagnosed at OSH with elevated troponins of 0.05 to 0.23 to 0.16 [facility] reveal mvCAD - S/p CABG x4 with Dr. Austin on 05/06 - continue asa, statin, metoprolol - Routine post cardiac surgery care: sternal precautions x 6 weeks, PT, bowel regimen to prevent constipation and aggressive pulmonary toilet. Anxiety and depression - Continue home bupropion XL 300 mg daily - Continue home citalopram 40 mg daily COPD (chronic obstructive pulmonary disease) - Duo nebs q6 prn - Wean O2 for SPO2 goal >88% GERD (gastroesophageal reflux disease) - 05/07 extubated, no on home PPI dc'd - 05/08 pt denies any GERD symptoms - 05/09 + PPI for reflux - 05/10 docusate, metoclopramide, miralax, senna, simethicone, continue NG to low intermitted, CLD for pt comfort, passing gas - 05/11 as above denies reflux today NG clamp trial - 05/14 PPI per blue surgery rec for blood tinged NG output Leukocytosis Abdominal abscess - 05/31: WBC 26.51 - 06/01: WBC 33.03. CT abd per blue surgery - 06/02: WBC 33.90. CT yd with abscess. Started on zosyn yd evening. IR consulted for abscess drainage. Plan for IR procedure on Tuesday - afebrile - monitor Hyperlipidemia - Statin THOM (obstructive sleep apnea) - Refusing home CPAP Hypertension - metoprolol Cardiac volume overload - diuresis prn Hypoglycemia - Resolved once TPN started Nausea with vomiting - Advance PO diet as able - prn zofran Acute blood loss anemia (ABLA) - H/H 10.2/31.0 - 06/01: H/H 9.7/29.3 - 06/02: H/H 9.2/28.7 - Monitor and transfuse prn Gastric perforation Colonic perforation Ileus - S/p ex lap with left colon resection with end colostomy with blue surgery on 05/23 - 06/01: CT abd per Blue surgery giving increasing WBC - 06/02: CT yd with abscess. Started on zosyn yd evening. IR consulted for abscess drainage. Plan for IR procedure on Tuesday On total parenteral nutrition (TPN) - Started on 05/20 - 05/31: Calorie count completed and demonstrated pt was only meeting 12-13% of calorie requirements. - Continue TPN. - Promote PO intake Electrolyte abnormality - monitor and replace prn Post-op pain - Abdominal tenderness and pain - MMPC Delirium - Delirium precautions Plan: Continue TPN CT yd with abscess. Started on zosyn yd evening. IR consulted for abscess drainage. Plan for IR procedure on Tuesday Cardiothoracic Surgery [phone] * Consults - Lorena Phillips APRN - 06/02/2024 1:23 PM EDTAssociated Order(s): IP CONSULT TO INTERVENTIONAL RADIOLOGY 06/02/24 Patient: Rere Hunter Date of : 1970/53 y.o. Requesting Service: Maite Austin MD Chief Complaint: chest pain Reason for Consult: perisplenic fluid collection History of Present Illness: Rere Hunter is a 53 y.o. female with a past medical history of HTN, HLD, COPD, GERD, tobacco use, and CAD who presented for chest pain on 05/01 She had a 4v CABG on 05/06 complicated by post-op ileus. SGE consulted for contained perforation (stomach versus colon) seen on CT. Interval CT scan showed progression of fluid collection between the stomach and colon, with contrast in the collection suggesting colonic perforation. On 05/23 she underwent an exploratory laparotomy, extended left colectomy and end colostomy creation for colonic perforation. Her WBC was persistently 33. She had a CT on 06/01 with perisplenic fluid collection extending alongthe paracolic gutter. Small left pleural effusion. Wall thickening and surrounding fat stranding involving the rectal stump and distal small bowel segments in the pelvis. Small partially marginated fluid collection in the lower abdomen History and admission information obtained from chart review of primary and consulting teams notation , as well as speaking directly to consulting team. The following portions of the chart were reviewed this encounter and updated as appropriate: Review of Systems: 14 point ROS negative except for above. Past Medical History: Diagnosis Date Anxiety COPD (chronic obstructive pulmonary disease) ([facility]) 05/01/2024 Continue Duo nebs q6 SPO2 goal >88% Depression GERD (gastroesophageal reflux disease) 05/01/2024 Continue Protonix 40 mg daily Hyperkalemia 05/06/2024 Now resolved, pt with hypokalemia requiring replacement On mechanically assisted ventilation ([facility]) 05/06/2024 Arrived to ICU intubated 05/07 extubated to [facility] 05/08 resolved Tobacco use 05/01/2024 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 Allergies[3] Objective: All laboratory, images, tracings, and vital sign data are personally reviewed unless otherwise noted. VITALS: Temp: [36.6 ??C (97.9 ??F)-37.3 ??C (99.2 ??F)] 36.7 ??C (98 ??F) Heart Rate: [92-104] 94 Resp: [14-26] 24 BP: (118-130)/(70-81) 119/75 Weight: 61.1 kg (134 lb 12.8 oz) Body mass index is 22.84 kg/m??. I & O SUMMARY I/O last 3 completed shifts: In: 2060.7 (35.2 mL/kg) [P.O.:300; IV Piggyback:200] Out: 1677.5 (28.6 mL/kg) [Urine:1200 (0.6 mL/kg/hr); Drains:27.5; Stool:450] Dosing Weight: 58.6 kg I/O this shift: In: 275 [NG/GT:275] Out: 0 MEDICATIONS: Current Medications[4] LABS (PAST 18Labs in last 18 hours) CBC WBC 33.90 (H) Hb 9.2 (L) Plt 702 (H) Hct 28.7 (L) INR ?? PTT ?? Anti-Xa ?? BMP Na 130 (L) Cl 97 BUN 13 Glu 111 (H) K 3.6 Co2 21 (L) Cr 0.60 Ca 7.9 (L) Mg 2.3 Phos 5.8 (H) Lactate ?? LFT AST ?? AlkPhos ?? T Prot ?? ALK ?? Bili ?? Alb ?? D.Bili ?? HOURS) EXAM: GENERAL: No acute distress EYES: PERRL; No scleral icterus or conjunctivitis HENT: Atraumatic, normocephalic NECK: Supple. RESP/CHEST: Symmetric expansion; non labored. CARD: regular rate and rhythm Extremities: No edema, no cyanosis or clubbing. Pedal pulses palpable +2. GI: No organomegaly or masses. Soft, Nontender, nondistended. SKIN: No rash, sores, lesions or subcutaneous nodules. NEURO: AAOx4. Motor intact and no focal deficits Radiographics/Diagnostics: Imaging personally reviewed and reviewed with attending. === 05/01/24 === CT ABDOMEN PELVIS W IV CONTRAST - Narrative - CLINICAL INDICATION: Abdominal pain, post-op; post colectomy with end colostomy, leukocytosis TECHNIQUE: Multiple axial CT images were obtained from lung bases through pubic symphysis following administration of IV contrast, Omnipaque 300, 100 mL. Reformatted images in the coronal and sagittal planes were generated from the axial data set to facilitate diagnostic accuracy. Total DLP (Dose-Length Product): 368.76 mGy.cm. Please note: The reported value represents the total of one or more individual components during the CT acquisition on this date and at this time, and as such, the same value may appear in more than one CT report depending on the interpreting/reporting physicians. COMPARISON: May 23, 2024. FINDINGS: Lower Chest: Small left pleural effusion with associated atelectasis. Improving groundglass opacities in the lower lungs. Solid Abdominal Organs: Homogenous hepatic enhancement. Likely focal fatty infiltration along the falciform ligament. Prior cholecystectomy. No biliary ductal dilatation. Development of well marginated fluid collection along the anterior spleen extending along the left paracolic gutter measuring 4 x 4 x 11.2 cm (series 3 image 55 and series 5 image 32). Mild fat stranding about the pancreatic tail along the surgical drain. Pancreas is otherwise unremarkable. Morphologically unremarkable adrenalglands. Heterogenous, striated renal enhancement. No hydronephrosis. GI Tract/Mesentery/Peritoneum: Normal caliber stomach. Surgical changes of left colectomy with right mid abdominal end colostomy. Wall thickening and pericolonic fat stranding of the rectal stump anddistal small bowel in the pelvis. Partially organized fluid collection in the lower abdomen measures 5 x 1 cm (series 3 image 213). Few prominent mesenteric lymph nodes. Pelvic and upper abdominal surgical drains in place. Pelvic Viscera: Distended bladder without abnormality. Intraluminal air likely from catheterization. Prior hysterectomy. Lymph Nodes/Vasculature: No lymphadenopathy by CT size criteria. The aortoiliac vasculature is patent and normal in caliber. Significant mixed atherosclerotic plaque of the aorta and iliac arteries. Free Fluid: Trace free fluid. Fluid collections as above. Musculoskeletal and Body Wall: Surgical changes of the midline abdomen. No acute bony abnormalities. - Impression - Surgical changes of left colectomy and end colostomy. Wall thickening and surrounding fat strandinginvolving the rectal stump and distal small bowel segments in the pelvis, which may infectious or inflammatory. Small partially marginated fluid collection in the lower abdomen concerning for developing abscess. More organized collection in the left upper quadrant extending along the paracolic gutter. Heterogenous renal enhancement may represent pyelonephritis. Small volume pneumoperitoneum, likely postsurgical. Small left pleural effusion, decreased from comparison. CRITICAL RESULT: No. COMMUNICATION: Per this written report. Drafted by Lorri Lopez MD on 06/01/2024 4:46 PM Final report signed by Lorri Lopez MD on 06/01/2024 5:03 PM === 05/01/24 === XR CHEST 1 VIEW - Narrative - CLINICAL INDICATION: s/p CABG TECHNIQUE: XR CHEST 1 VIEW COMPARISON: May 30, 2024 FINDINGS: Left upper extremity PICC line in place with similar position compared to prior study. Stable cardiac mediastinal silhouette. No consolidation. No pneumothorax or pleural effusion. - Impression - No significant interval changes. CRITICAL RESULT: No. COMMUNICATION: Per this written report. By electronically signing this report, I, the attending physician, attest that I have personally reviewed the images/data for the above examination(s) and agree with the final edited report. Drafted by Mino Hobbs MD on 05/31/2024 9:13 AM Final report signed by Edson Ambrose MD on 05/31/2024 10:46 AM Echo, Adult Transthoracic Complete Result Date: 05/02/2024 Left Ventricle: Based on the linear dimension and/or 2D volumes, the left ventricle is normal in size. There is normal left ventricular myocardial thickness and mass. The left ventricular systolic function is normal. The LVEF as measured by Heart Model 3D volume is 61%. The diastolic function is normal. The left ventricular filling pressure is normal. Right Ventricle: The right ventricle is normal in size. The right ventricular systolic function is normal. All cardiac valves were reasonably well interrogated with 2D imaging and/or Doppler assessment and no significant valve regurgitation or stenosis is seen. There is no recent study available for direct [id number] comparison. Assessment & Plan: Perisplenic fluid collection Leukocytosis Gastric perforation Colonic perforation Ileus - S/p ex lap with left colon resection with end colostomy with blue surgery on 05/23 - WBC 33 - INR ??, Plt 702 (H) - Personally reviewed CT on 06/01 with perisplenic fluid collection extending along the paracolic gutter. Small left pleural effusion. Wall thickening and surrounding fat stranding involving the rectal stump and distal small bowel segments in the pelvis. Small partially marginated fluid collection in the lower abdomen - VSS, Afebrile - Antibiotics per primary team, currently on zosyn - Currently on TPN Multivessel CAD - S/p CABG x4 with Dr. Austin on 05/06 PLAN: - Will perform CT guided perisplenic drain placement vs aspiration on 06/04 - Will consent prior to procedure - Prior to procedure NPO at 0000, hold anticoagulation Case discussed with attending physician, Dr. Collins. Thank you for allowing us to participate in the care of this patient. Lorena Phillips, AUT[employer]TER Interventional Radiology [phone] [1] Past Surgical History: Procedure Laterality Date ABDOMINAL ADHESION SURGERY SECTION, CLASSIC CHOLECYSTECTOMY CORONARY ARTERY BYPASS GRAFT 05/06/2024 Coronary artery bypass grafting x4 with CHOWDARY to LAD as a free graft, reverse saphenous vein graft sequential to ramus intermedius artery then to obtuse marginal artery 1, reverse saphenous vein graftto PDA.(Reda) HAND SURGERY Right Tendon repair SHOULDER SURGERY [2] Social History Tobacco Use Smoking status: Every Day Current packs/day: 0.50 Types: Cigarettes Smokeless tobacco: Never Vaping Use Vaping status: Never Used Substance Use Topics Alcohol use: Not Currently Drug use: Not Currently [3] Allergies Allergen Reactions Latex Other - please document in the comment field Oxycodone Nausea [4] Current Facility-Administered Medications: acetaminophen (Tylenol) tablet 500 mg, 500 mg, Oral, q6h LINDA, Radha Dickerson DO, 500 mg at 06/02/24 0709 Adult 2-in-1 TPN, 40 mL/hr, Intravenous, Continuous, Maite Austin MD, Last Rate: 40 mL/hr at 06/01/24 2242, New Bag at 06/01/24 2242 Adult 2-in-1 TPN, 65 mL/hr, Intravenous, Continuous, Maite Austin MD aspirin chewable tablet 81 mg, 81 mg, Oral, Daily, Sidney Jackson MD, 81 mg at 06/02/24 0824 benzocaine-menthol (Chloraseptic) 6-10 MG lozenge 1 lozenge, 1 lozenge, Mouth/Throat, q4h PRN, Dave Baird, DO, 1 lozenge at 05/17/24 1624 buPROPion (Wellbutrin) tablet 150 mg, 150 mg, Oral, BID FOLLOWED BY buPROPion XL (Wellbutrin XL) 24 hr tablet 300 mg, 300 mg, Oral, Daily, Sidney Jackson MD, 300 mg at 06/02/24 0824 calcium carbonate (Tums) chewable tablet 500 mg, 500 mg, Oral, 4x daily PRN, Shola Sheridan APRN,500 mg at 05/31/24 1054 citalopram (CeleXA) tablet 40 mg, 40 mg, Oral, Daily, Radha Dickerson DO, 40 mg at 06/02/24 0824 fat emulsion fish/plant based (SMOFlipid) 20 % IV infusion 250 mL, 250 mL, Intravenous, Every otherday, Maite Austin MD, Last Rate: 20.8 mL/hr at 06/01/24 0853, 250 mL at 06/01/24 0853 heparin (porcine) injection 5,000 Units, 5,000 Units, Subcutaneous, q8h, Sundeep Newsome MD, 5,000 Units at 06/02/24 0709 hydrALAZINE (Apresoline) injection 10 mg, 10 mg, Intravenous, q6h PRN, Jorge Luis La MD, 10 mg at 05/20/24 1316 HYDROmorphone (Dilaudid) injection 0.5 mg, 0.5 mg, Intravenous, q2h PRN, 0.5 mg at 06/02/24 0310 OR HYDROmorphone (Dilaudid) injection 1 mg, 1 mg, Intravenous, q2h PRN, Sidney Jackson MD ipratropium-albuterol (Duo-Neb) 0.5-2.5 mg/3 mL nebulizer solution 3 mL, 3 mL, Nebulization, q6h PRN, Trinity Yousif [employer], 3 mL at 05/17/24 1551 lidocaine (Lidoderm) 5 % patch 2 patch, 2 patch, Apply externally, q24h, Abhishek Montalvo MD, 2 patch at 05/31/24 1536 melatonin tablet 6 mg, 6 mg, Oral, Nightly, Sidney Jackson MD, 6 mg at 06/01/24 2208 methocarbamol (Robaxin) tablet 500 mg, 500 mg, Oral, TID, Radha Dickerson DO, 500 mg at 06/02/24 0824 metoprolol tartrate (Lopressor) tablet 25 mg, 25 mg, Oral, BID, Radha Dickerson DO, 25 mg at 06/02/24 0824 [DISCONTINUED] ondansetron ODT (Zofran-ODT) disintegrating tablet 4 mg, 4 mg, Oral, q6h PRN OR ondansetron (Zofran) injection 4 mg, 4 mg, Intravenous, q6h PRN, 4 mg at 06/01/2458 OR [DISCONTINUED] ondansetron (Zofran) 4 MG/5ML solution 4 mg, 4 mg, Oral, q6h PRN, Jorge Luis La MD oxyCODONE (Roxicodone) immediate release tablet 5 mg, 5 mg, Oral, q6h PRN, 5 mg at 05/30/242008 OR oxyCODONE (Roxicodone) immediate release tablet 10 mg, 10 mg, Oral, q6h PRN, Sidney Jackson MD, 10 mg at 05/31/24211 pantoprazole (Protonix) EC tablet 40 mg, 40 mg, Oral, Daily, Shola Sheridan, AUT[employer], 40 mg at 06/02/24823 phenol (Chloraseptic) 1.4 % mouth/throat spray 1 spray, 1 spray, Mouth/Throat, q2h PRN, Sidney Jackson MD, 1 spray at 05/18/24 1248 piperacillin-tazobactam (Zosyn) 4.5 g in sodium chloride 0.9% 100 mL IVPB (vial adapter required), 4.5 g, Intravenous, q6h, Shailesh Tang PA, Last Rate: 36.7 mL/hr at 06/02/24 1214, 4.5 g at 06/02/24 1214 potassium chloride (Klor-Con) packet 40 mEq, 40 mEq, Oral, Once, Maite Austin MD primidone (Mysoline) tablet 50 mg, 50 mg, Oral, BID, Radha Dickerson, , 50 mg at 06/02/24 0824 rosuvastatin (Crestor) tablet 40 mg, 40 mg, Oral, Nightly, Sidney Jackson MD, 40 mg at 06/01/24 2208 simethicone (Mylicon) chewable tablet 120 mg, 120 mg, Oral, q6h PRN, Sidney Jackson MD, 120 mg at 05/31/242022 sodium chloride ([place]) 0.65 % nasal spray 1 spray, 1 spray, Each Nostril, PRN, Edson Pringle MD sodium chloride 0.9 % flush 10 mL, 10 mL, Intravenous, q12h, Sidney Jackson MD, 10 mL at 06/02/24 0710 sodium chloride 0.9 % flush 10 mL, 10 mL, Intravenous, q1h PRN, Sidney Jackson MD sodium chloride 0.9 % flush 20 mL, 20 mL, Intravenous, q1h PRN, Sidney Jackson MD * Progress Notes - Uriah Sherman, PharmD - 06/02/2024 11:31 AM EDT Pharmacist TPN Progress Note Patient: Rere Hunter Age: 53 y.o. Admission Date: [id number] Subjective/Objective/Hospital Course: 53 y.o. female with PMHx of CAD, HTN, COPD, GERD, tremor, anxiety, depression, and tobacco use, who is currently hospitalized under the care of the CVT surgery team after having a CABG on 05/06/24. Since surgery she has developed nausea, vomiting, and abdominal pain with imaging findings consistent with ileus. Patient has had inadequate energy intake likely related to ileus and has been NPO x [address] 05/20 showed intraabdominal fluid adjacent to stomach concerning for possible perforation. UGI with no perforartion. TPN consult for ileus + possible leak. -- 05/17: TPN consult placed -- 05/19: TPN initiated -- 05/23: CT overnight with PO contrast more convincing for colonic perforation instead of stomach perf. OR with general surgery for left hemicolectomy and colostomy creation. -- 05/25: CLD ordered late afternoon -- 05/28: PO diet ordered -- 05/29: S/P Exploratory laparotomy, extensive lysis of adhesions, left colectomy(performed by colorectal surgery), end colostomy creation, abdominal washout, application of negative pressure wound VAC therapy to skin and soft tissues on 05/23 d/t colon perforation. -- 05/31: Calorie count results: 3-day ave = ~206kcal; 6g protein. Patient meeting ~12-13%kcal; 8% protein needs. 06/02: CT scan showed abscess, made NPO for potential drainage soon Problem List[1] Medical History[2] Surgical History[3] Allergies: Latex and Oxycodone LABS: Results from last 7 days Lab Units 06/02/24 0708 06/02/24 0102 06/01/24 0120 05/31/24 0250 05/30/24 0513 05/29/24 0700 05/29/24 0535 05/28/24 0047 05/27/24 0454 GLUCOSE mg/dL 111* 507* 495* 107* 112* 104* 600* 106* 127* BUN mg/dL 13 11 12 13 14 13 12 15 16 CREATININE mg/dL 0.60 0.60 0.54* 0.52* 0.52* 0.58* 0.59* 0.66 0.71 SODIUM mmol/L 130* 125* 126* 129* 131* 132* 128* 137 134* POTASSIUM mmol/L 3.6 4.8 4.9 3.7 3.7 4.0 5.1* 4.3 4.1 CHLORIDE mmol/L 97 93* 95* 95* 96* 97 95* 102 99 CO2 mmol/L 21* 20* 20* 25 24 25 22 26 26 CALCIUM mg/dL 7.9* 7.9* 8.0* 8.3* 8.0* 8.3* 8.1* 8.2* 8.4* PHOSPHORUS mg/dL -- 5.8* 5.2* 4.4 4.3 4.1 5.6* 3.8 4.7* MAGNESIUM mg/dL -- 2.3 2.3 2.0 1.9 -- 2.1 1.9 2.1 Results from last 7 days Lab Units 06/02/24 0102 06/01/24 0120 05/31/24 0250 05/30/24 0513 05/29/24 0535 05/28/24 0047 05/27/24 0454 WBC 10*3/uL 33.90* 33.03* 26.51* 23.21* 22.52* 25.00* 30.77* HEMOGLOBIN g/dL 9.2* 9.7* 10.2* 9.7* 9.3* 9.7* 9.5* HEMATOCRIT % 28.7* 29.3* 31.0* 29.7* 28.9* 30.1* 29.8* PLATELETS 10*3/uL 702* 644* 670* 603* 528* 442* 413* Results from last 7 days Lab Units 06/02/24 0102 06/01/24 0120 05/31/24 0250 05/30/24 0513 05/29/24 0535 05/28/24 0047 05/27/24 0454 ALBUMIN g/dL 2.2* 2.2* 2.5* 2.3* 2.0* 2.1* 2.1* Nutrition Labs: Lab Results Component Value Date TRIG 76 05/19/2024 BILITOT 0.9 05/23/2024 ALBUMIN 2.2 (L) 06/02/2024 PREALBUMIN 6.5 (L) 05/09/2024 HGBA1C 5.3 05/01/2024 CRP 225.3 (H) 05/17/2024 IRON 25 (L) 05/14/2024 TIBC 156 (L) 05/14/2024 Microbiology Results Procedure Component Value Units Date/Time Blood Culture (Aerobic/Anaerobet Set) [[id number]] Collected: 05/23/24 1020 Order Status: Completed Specimen: Blood, Venous Updated: 05/24/24 1101 Culture No growth at day 1 Fungal Blood Culture [[id number]] Collected: 05/17/241812 Order Status: Completed Specimen: Blood, Venous Updated: 05/24/24 0638 Culture No Fungal Growth at 1 Week AFB Blood Culture [[id number]] Collected: 05/17/241812 Order Status: Completed Specimen: Blood, Venous Updated: 05/24/24 0638 AFB Culture No Mycobacterial Growth at 1 Week Vitals: Visit Vitals BP 119/75 (BP Location: Right arm, Patient Position: Lying) Pulse 94 Temp 36.7 ??C (98 ??F) (Oral) Resp 24 [place] Coma Scale Score: 15 [place] Scale Score: 16 Oxygen Therapy: None (Room air) Skin Integrity: Bruising (wound vac to sternotomy, LENA drain x2, Colostomy) Edema: Generalized Wt Readings from Last 3 Encounters: 06/01/24 54.8 kg (120 lb 13 oz) 06/28/23 59 kg (130 lb) 04/26/23 62.6 kg (138 lb) Current Diet Order: Dietary Orders (From admission, onward) Start Ordered 06/02/24 0001 NPO diet Diet effective midnight 06/01/24200505/29/24 1449 Oral nutrition supplements (Adult Diet Panel) Until discontinued Question Answer Comment Supplement frequency: Breakfast Supplement frequency: Lunch Supplement frequency: Dinner Breakfast supplement: Roque Fruit Punch Quantity for Breakfast of Roque Fruit Punch Packet One Lunch supplement: Boost Very High Calorie Vanilla Quantity for Lunch of Boost Very High Calorie - Vanilla One Dinner supplement: Roque Fruit Punch Quantity for Dinner of Roque Fruit Punch Packet One 05/29/24 1448 Current Medications acetaminophen, 500 mg, Oral, q6h LINDA aspirin, 81 mg, Oral, Daily buPROPion, 150 mg, Oral, BID FOLLOWED BY buPROPion XL, 300 mg, Oral, Daily citalopram, 40 mg, Oral, Daily fat emulsion fish/plant based, 250 mL, Intravenous, Every other day heparin (porcine), 5,000 Units, Subcutaneous, q8h lidocaine, 2 patch, Apply externally, q24h melatonin, 6 mg, Oral, Nightly methocarbamol, 500 mg, Oral, TID metoprolol tartrate, 25 mg, Oral, BID pantoprazole, 40 mg, Oral, Daily piperacillin-tazobactam, 4.5 g, Intravenous, q6h potassium chloride, 40 mEq, Oral, Once primidone, 50 mg, Oral, BID rosuvastatin, 40 mg, Oral, Nightly sodium chloride, 10 mL, Intravenous, q12h Adult 2-in-1 TPN, 40 mL/hr, Last Rate: 40 mL/hr (06/01/24 2242) Current Anthropometrics: Height: 154.9 cm (5' 0.98 ) Weight: 61.1 kg (134 lb 12.8 oz) [place] body weight: 47.8 kg (105 lb 4.8 oz) Adjusted ideal body weight: 52.8 kg (116 lb 5.7 oz) (126.25%) of IBW Body mass index is 25.13 kg/m??. Adjusted wt: 50.9 kg (if over 125% of IBW) CENTRAL IV Access: PICC (05/18/24) Estimated Nutritional Needs: HBE: 1153 Stress Factor: 1.2-1.4 Total Calories/day: 8730-7440 Protein (amino acids): 1.3-1.6 grams/kg Protein (Amino acids): 66-81 grams/day Measured Energy Needs: Respiratory Quotient: 06/02/2024 Plan/Recommendation: Labs reviewed and stable. Electrolytes and BG within normal limits. Will resume goal TPN as patient now NPO. GOAL TPN: DEXTROSE: 18% (281 g/day CHO) AMINO ACIDS: 5% (78 g/day - 1.51 g/kg/day Amino acids) C:A 1:3, K @ 30 mEq/L @ 65 ml/hr, with 30mg/day thiamine, MVI, and Trace elements Every other day 250ml 20% SMOF lipids 1517 Total kcal/day - 29.8 kcal/kg/day GUR: 3.83 Replace electrolytes outside of TPN Calcium and/or Phosphorus supplements MUST be in a separate line from the TPN to avoid precipitation Obtain BMP, magnesium, and Phos daily x 3days and then at least twice weekly Obtain LFT and TGLY weekly I have monitored the TPN therapy, including the labs, and have communicated any modifications with the primary medical/surgical team. Continue current TPN formula and lipid regimen as above. I have communicated the TPN plan with the IV room. Thank you! Micheal Sherman, PharmD Trauma/Emergency General Surgery [1] Patient Active Problem List Diagnosis Anxiety and depression COPD (chronic obstructive pulmonary disease) ([facility] [place]) CAD, multiple vessel NSTEMI (non-ST elevated myocardial infarction) ([facility] [place]) GERD (gastroesophageal reflux disease) Leukocytosis Hyperlipidemia THOM (obstructive sleep apnea) S/P CABG x 4 Hypertension Cardiac volume overload Hypoglycemia Nausea with vomiting Acute blood loss anemia (ABLA) Gastric perforation ([facility] [place]) On total parenteral nutrition (TPN) Ileus ([facility] [place]) Electrolyte abnormality Colon perforation ([facility] [place]) Post-op pain Delirium [2] Past Medical History: Diagnosis Date Anxiety COPD (chronic obstructive pulmonary disease) ([facility] [place]) 05/01/2024 Continue Duo nebs q6 SPO2 goal >88% Depression GERD (gastroesophageal reflux disease) 05/01/2024 Continue Protonix 40 mg daily Hyperkalemia 05/06/2024 Now resolved, pt with hypokalemia requiring replacement On mechanically assisted ventilation ([facility] [place]) 05/06/2024 Arrived to ICU intubated 05/07 extubated to 4LNC 05/08 resolved Tobacco use 05/01/2024 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 Complicates all aspects of care and recovery Tremor 05/01/2024 Continue home primidone 50 mg BID [3] Past Surgical History: Procedure Laterality Date ABDOMINAL ADHESION SURGERY SECTION, CLASSIC CHOLECYSTECTOMY CORONARY ARTERY BYPASS GRAFT 05/06/2024 Coronary artery bypass grafting x4 with CHOWDARY to LAD as a free graft, reverse saphenous vein graft sequential to ramus intermedius artery then to obtuse marginal artery 1, reverse saphenous vein graftto PDA.(Reda) HAND SURGERY Right Tendon repair SHOULDER SURGERY * Care Plan - Alessandra Keene RN - 06/02/2024 10:52 AM EDT Problem: Adult Inpatient Plan of Care Goal: Plan of Care Review Outcome: Ongoing, Progressing Flowsheets (Taken 05/31/2024 0000 by Donald Acharya, RN) Progress: improving Plan of Care Reviewed With: patient Goal: Patient-Specific Goal (Individualized) Outcome: Ongoing, Progressing Flowsheets (Taken 06/02/2024 0800) Patient/Family-Specific Goals (Include Timeframe): pt will remain free from falls for the duration of the shift. Individualized Care Needs: safety Anxieties, Fears or Concerns: procedure today Goal: Absence of Hospital-Acquired Illness or Injury Outcome: Ongoing, Progressing Intervention: Identify and Manage Fall Risk Flowsheets (Taken 06/02/2024 0800) Safety Promotion/Fall Prevention: assistive device/personal items within reach clutter-free environment maintained fall prevention program maintained lighting adjusted mobility aid in reach nonskid shoes/slippers when out of bed room organization consistent safety round/check completed Intervention: Prevent Skin Injury Flowsheets Taken 06/02/2024 1000 Body Position: left turned Taken 06/01/2024 1146 Skin Protection: incontinence pads utilized transparent dressing maintained Intervention: Prevent and Manage VTE (Venous Thromboembolism) Risk Flowsheets (Taken 06/02/2024 0400 by Fernanda De Luna, RN) VTE Prevention/Management: SCDs (sequential compression devices) off medication Intervention: Prevent Infection Flowsheets (Taken 06/01/2024 1146) Infection Prevention: single patient room provided rest/sleep promoted environmental surveillance performed equipment surfaces disinfected visitors restricted/screened hand hygiene promoted personal protective equipment utilized Goal: Optimal Comfort and Wellbeing Outcome: Ongoing, Progressing Intervention: Monitor Pain and Promote Comfort Flowsheets (Taken 05/29/20242020 by Marcie Fisher RN) Pain Management Interventions: medication (see MAR) Intervention: Provide Person-Centered Care Flowsheets (Taken 06/01/2024 1146) Trust Relationship/Rapport: choices provided care explained reassurance provided thoughts/feelings acknowledged emotional support provided empathic listening provided questions answered questions encouraged Goal: Readiness for Transition of Care Outcome: Ongoing, Progressing Problem: Infection Goal: Absence of Infection Signs and Symptoms Outcome: Ongoing, Progressing Problem: Self-Care Deficit Goal: Improved Ability to Complete Activities of Daily Living Outcome: Ongoing, Progressing * Progress Notes - Rebel Ayala MD - 06/02/2024 9:18 AM EDT We saw this patient today on the restrepo. We have been following along since we performed colectomy for perforation with abscess. Her stoma is working nicely. We are concerned about some elevated white blood count so we obtain CT scan. CT scan shows an abscess. We think drainage would be helpful. She does not have sepsis so we do not think it is urgent and necessary to do on the weekend. But we should get it done 1st of the week. We will take 1 of the drains out, the 1 that is over the rectal stump. * Clinician Note - Lenard Hallman MD - 06/01/2024 5:57 PM EDT Trauma Surgery Interval Note: 06/01/2024 Reviewed 06/01/24 CT AP with Chief Resident, Dr. Ghanshyam Cid. Scan significant for large rim enhancing collection along left paracolic gutter without locules of gas. Plan: - Recommend IR consult for abscess drainage. Primary team to order body fluid culture for drain study. - Restart zosyn, continue until at least 4 days s/p IR drain placement or change abx based on culture data Lenard Hallman MD [facility] PGY-1 * Can KelleyFABIANAJAMISON - Leola Montano RN - 06/01/2024 12:57 PM EDT Images from the original note were not included. 9 Taking Care of Your Drain Tube ([place]) During surgery, your doctor placed a drain that comes out of your skin. It will remove the fluid that collects near your incision. The drain has a plastic tube and a bulb to hold the fluid. It works by using a small amount of suction. This handout contains important information about caring for your drain tube. When to call your doctor - you need to know when it is important to call your doctor about a problem or concern with your drain. Call your doctor if: ? The tube falls out or the incision opens. ? You see pus around the drain tube or incision. ? You see any of these signs that the skin is infected - it is: * red * swollen * tender to the touch * pulled away from the drain tube ? You have a fever of 101.5 or more. ? The fluid in the drain smells bad. ? The fluid in the drain changes color or turns bloodier. ? You have pain at the incision site that was not there before. ? There is a big change in the amount of fluid that drains. For example, if you need to empty the bulb after 4 hours when you normally empty it every 6 hours. ? The bulb part of the drain fills up with air or will not stay flat. ----- Call your doctor right away if the amount of fluid doubles in a 4-hour period. ----- Write down the phone number you would call here: How to Empty Your Drain Tube You need to empty the fluid that drains into the bulb every 4-8 hours. Don?t let the bulb fill up more than half full. What you need: ?? Gauze pads (4x4s) ?? Measuring cup ?? Drain Amounts Chart (at the end of this handout) Drain the tube: 1. Wash your hands with warm, soapy water. 2. Pull the plug out of the bulb. 3. Empty the fluid from the bulb into the measuring cup. Don?t let the bulb touch the cup. 4. Make sure there is no fluid left in the bulb. 5. Wipe off the outside of the bulb plug with a clean gauze 4x4. Throw the 4x4 away after using. 6. Squeeze all the air out of the bulb. While the air is out of the bulb, put the plugback into theopening. The bulb should stay flat. Some people have trouble keeping the bulb squeezed flat and putting the plug back in at the same time. If this happens, place the bulb on a flat hard surface, like a counter top, and use one hand to keep it flat. Use your other hand to replace the plug. 7. Write down how much fluid is in the measuring cup on the Drain Amounts Chart, along with the date and time. 8. Pour the fluid into the toilet and flush. How to Unclog Your Drain Tube Sometimes clots will clog your drain tube, causing fluid to back up into your body or spill out around the tube site. It is very important to take care of this problem right away. If you see or feel a clot in the tube, make sure you squeeze it out into the bulb. This is called ?milking? or ?stripping? your drain tube. Do this when the drain does not seem to beworking properly. 1. Insurance Representative the tube near the skin and hold it in place with one hand. This will keep the tube from pulling out of the skin. 2. With your other hand, pinch the tube between your thumb and first finger. 3. Starting near the skin where you are holding the tube in place, pull your fingers along the tubetoward the bulb. This helps push the clogged fluid into the bulb. * Stop right away if you start to pull the tube away from your skin! 4. If the fluid still does not drain after you try this, call your doctor. Reminders ?? Don?t let the tube get kinked. ?? Don?t squeeze the bulb with the plug in place. ?? Fill in your Drain Amounts Chart every time you empty the bulb. ?? Remember to bring your Drain Amounts Chart to your clinic appointment. Drain Amounts Chart Write down the amount of fluid that you empty from your drain bulb every 4-8 hours. Empty the bulb more often if it fills up. Some people may have 2 drains. If you only have 1 drain, ignore the chart for Drain #2. Drain #1 Drain #2 Date/Time Amount Date/Time Amount Date/Time Amount Date/Time Amount 09/22/08 7 a.m. 20ml * Can Alex - Leola Montano RN - 06/01/2024 12:56 PM EDT Images from the original note were not included. 67011 Preventing a Surgical Site Infection A risk of any surgery is an infection at the surgical site. The surgical site is a cut the surgeon makes in the skin to do the surgery. Surgical site infections can range in type. It may be a minor skin infection. Or it may be severe and include tissue under the skin or other organs. In some cases,a severe infection can cause . The information below tells you: ?? About surgical site infections. ?? What hospitals do to prevent them. ?? How they?re treated if they do occur. ?? What you can do to prevent an infection. Hand washing reduces the risk of infection. What causes a surgical site infection? Germs are everywhere. They?re on your skin, in the air, and on things you touch. Many germs are good. Some are harmful. Surgical site infections occur when harmful germs enter your body through the incision in your skin. Some infections are caused by germs that are in the air or on objects. But most are caused by germs found on and in your own body. Who is at risk for a surgical site infection? Anyone can have a surgical site infection. Your risk is higher if you: ?? Are an older adult. ?? Have a weak immune system. ?? Have other health conditions such as diabetes. ?? Take certain medicines, such as steroids. ?? Are a smoker. ?? Have certain types of surgery, such as abdominal surgery. ?? Have poor nutrition. ?? Are very overweight. ?? Have a surgery that lasts longer than 2 hours. What are the symptoms of a surgical site infection? An infection often shows up as skin redness, pain, and swelling around the incision that gets worse. Later, a cloudy or greenish-yellow fluid may come from the incision. The fluid may smell bad. The incision may pull apart or open up. You are likely to have a fever and may feel very ill. Symptoms can appear at any time. They may happen from hours to weeks after surgery. Implants such as an artificial knee or hip can become infected at any time after the surgery. How is a surgical site infection treated? ?? A surgical site infection is treated with antibiotics. The type of medicine you get will depend on what may be causing the infection. Most serious wound infections need wound care. In some cases, surgery may be needed on the infected wound. ?? An infected skin wound may be reopened and cleaned. A deep wound may need to be packed with gauze. The gauze is changed often until the wound starts to heal from the inside out. Your health care provider will decide the best way to treat your infection. ?? If an infection occurs where an implant is placed, the implant may be removed. ?? If you have an infection deeper in your body, you may need surgery to treat it. What hospitals do to prevent surgical site infections Many hospitals take these steps to help prevent surgical site infections: ?? Handwashing. Before the surgery, your surgeon and all surgery staff scrub their hands and arms with an antiseptic soap. ?? Clean skin. The site where your incision is made is carefully cleaned with an antiseptic solution. ?? Sterile clothing and drapes. The surgical team wears medical uniforms. These are known as scrub suits. They wear long-sleeved surgical gowns, masks, caps, shoe covers, and sterile gloves. Your body is fully covered with a large sterile sheet (sterile drape). There is an opening in the sheet where the incision is made. ?? Clean air. Operating rooms have special air filters. They use positive pressure airflow to prevent unfiltered air from entering the room. ?? Careful use of antibiotics. Antibiotics are given no more than 60 minutes before the incision ismade. They are generally stopped within 24 hours after surgery. This depends on the type of surgery. This helps kill germs but prevents problems that can occur when antibiotics are taken longer. ?? Controlled blood sugar levels. Your blood sugar level may rise. This can be because of the stress of the surgery. Your blood sugar level is watched closely to make sure it stays within a normal range. High blood sugar delays wound healing. This increases the risk of infection. ?? Controlled body temperature. A kgbrw-rgyz-nawxjc temperature during or after surgery prevents oxygen from reaching the wound. This makes it harder for your body to fight infection. Hospitals may warm I.V. fluids, and provide warm-air blankets. Your temperature is watched throughout the surgery. ?? Safe hair removal. Any hair that must be removed is clipped right before the incision, not shaved with a razor. This prevents tiny nicks and cuts where germs can enter. ?? Wound care. After surgery, a closed wound is covered with a sterile dressing for 1 to 2 days. Open wounds are packed with sterile gauze and covered with a sterile dressing. What you can do to prevent a surgical site infection ?? Ask questions. Learn what your hospital is doing to prevent infection. ?? If instructed, shower or bathe with plain soap the night before and the day of your surgery. Follow all instructions you're given. You may be asked to use a special cleanser that you don?t rinse off. ?? If you smoke, stop as long as possible before and after the surgery. Ask your provider about ways to quit. ?? Take antibiotics only when your provider tells you to. Using antibiotics when they?re not neededcan create germs that are harder to kill. Finish the entire prescription of your antibiotics even if you feel better. ?? Ask health care workers to clean their hands with plain soap and water or with an alcohol-based hand mail messenger before and after caring for you. Don?t be afraid to remind them. ?? After surgery, eat healthy foods. Care for your incision as directed by your health care team. When to contact your doctor Contact your provider or seek medical care right away if: ?? The pain at the surgical site gets worse. ?? A red streak, worse redness, or puffiness appears near the incision. ?? Yellowish, cloudy, or bad-smelling fluid leaks from the incision. ?? Your stitches dissolve before the wound heals. ?? You have a fever of 100.4?? F ( 38??C ) or higher, or as advised by your provider. ?? You have a tired feeling that doesn?t go away. Last Reviewed Date: 2024 00:00:00 ?? 6111-3128 [employer]. All rights reserved. This information is not intended as a substitute for professional medical care. Always follow your healthcare professional's instructions. * [facility] - Leola Montano RN - 06/01/2024 12:56 PM EDT Images from the original note were not included. 29145 Incision Care Reminder Keep all your follow-up visits. They let your healthcare provider make sure your incision is healing well. Keep in mind that there are many types of bandages, tapes, and supplies. Follow the specific instructions from your healthcare team. Ask for phone numbers to call if you need help. Healthcare provider phone number: Home care Tips for home care include: ?? Always wash your hands with soap and clean, running water and dry them before touching your incision. ?? Keep your incision clean and dry. Don't put creams or ointments on it unless directed by your healthcare team. ?? Don't do things that could cause dirt or sweat to get on your incision. ?? Don?t pick at scabs. They help protect the wound. ?? Keep your incision dry and out of water, as instructed by your healthcare team. Follow your provider's specific instructions on when to bathe or shower. You may be advised to take a sponge bath toprevent getting your incision wet. ?? If you're instructed to keep your incision out of water, follow your provider's instructions about the best way to keep your incision dry when bathing or showering. ?? Pat stitches dry if they get wet. Don?t rub. ?? Leave the bandage (dressing) in place until you're told to remove it or change it. Change it only as directed, using clean hands. ?? After the first 12 hours, change your dressing every 24 hours, or as directed by your provider. ?? Change your dressing if it gets wet or dirty. Care for types of closures Follow these guidelines: ?? Stitches (sutures) or sheridan. Once you no longer need to keep these dry, clean the wound each day. First remove the bandage using clean hands. Then wash the area gently with soap and clean, running water. Pat stitches dry. Finally, put on a new bandage. ?? Skin glue. Don?t put liquid, ointment, or cream on your wound while the glue is in place. Don't do activities that cause heavy sweating. Protect the wound from sunlight. Don't scratch, rub, or pick at the glue. Don't put tape directly over the glue. The glue should peel off in 5 to 10 days. ?? Surgical tape. Keep the area dry. If it gets wet, blot the area dry with a clean towel. Surgicaltape often falls off in 7 to 10 days. If it hasn't fallen off after 10 days, contact your healthcare provider before taking it off yourself. If you're told to remove the tape, put mineral oil or petroleum jelly on a cotton ball. Gently rub the tape until it's removed. Changing your dressing Leave the dressing (bandage) in place until you're told to remove it or change it. Follow the instructions below unless told otherwise by your healthcare provider: ?? Always wash your hands before changing your dressing. ?? After the first 48 hours, the incision wound often will have sealed. If it has, follow your provider's directions. They may advise you to uncover the incision and leave it open to the air. If the incision hasn't sealed, keep it covered. ?? Cover your incision only if your clothing is rubbing it or causing irritation, or if it's still draining. ?? Change your dressing if it gets wet or dirty. Follow-up care Follow up with your healthcare provider to ask how long stitches or sheridan should be left in place. Return for stitch or staple removal as directed. If dissolving stitches were used in an area, suchas your mouth, these may not need to be removed. They should fall out or dissolve on their own. If tape closures haven't fallen off on their own, remove them yourself when your provider advises. If skin glue was used, the glue will wear off by itself. When to call your healthcare provider Call your healthcare provider if you have any of these: ?? Pain, redness, swelling, or bleeding that gets worse ?? Smelly fluid from the incision, or changes in color of the drainage from the incision ?? Fever of 100.4??F ( 38 ??C) or higher, or as advised ?? Shaking or chills ?? Upset stomach (nausea) or vomiting that doesn't go away ?? Numbness, coldness, or tingling around the incision ?? Changes in skin color around the incision ?? The wound opens ?? Stitches that pull apart ?? [place] that fall out ?? Surgical tape that falls off before 7 days Last Reviewed Date: 2023 00:00:00 ?? 8037-4922 [employer]. All rights reserved. This information is not intended as a substitute for professional medical care. Always follow your healthcare professional's instructions. * [facility] - Leola Montano RN - 06/01/2024 12:56 PM EDT Images from the original note were not included. 145 Intra-Abdominal Abscess What is an intra-abdominal abscess? An intra-abdominal abscess is a collection of pus or infected fluid that is surrounded by inflamed tissue inside the belly. It can involve any abdominal organ. Or it can settle in the folds of the bowel. What causes an intra-abdominal abscess? Intra-abdominal abscesses sometimes happen because of another condition. An example might be appendicitis or diverticulitis. But, some cases happen as a complication after surgery. Abdominal abscesses can be caused by a bacterial infection. The most common bacteria to cause them are found in the stomach and intestines. One of these is Escherichia coli (E. coli). If left untreated, the bacteria will multiply. They can cause inflammation and kill healthy tissue. Who is at risk for an intra-abdominal abscess? Abdominal surgery or trauma can put you at risk for an intra-abdominal abscess. Additional concernsare health problems like diabetes or inflammatory bowel disease (IBD). What are the symptoms of an intra-abdominal abscess? If you've recently had surgery or trauma to an abdominal organ and have other risk factors, such asdiabetes or inflammatory bowel disease, watch for signs of an intra-abdominal abscess. Common symptoms include: ?? Fever ?? Belly pain ?? Chest pain or shoulder pain ?? Lack of appetite ?? Nausea and vomiting ?? Change in bowel movements ?? Rectal tenderness or fullness ?? Mass in the belly ?? Malnourishment How is an intra-abdominal abscess diagnosed? If you have symptoms of an intra-abdominal abscess, your healthcare provider may order these tests: ?? Blood tests. Blood may be drawn to look for signs of infection or an abscess. Very useful tests are those that look at the number of white blood cells and other signs of inflammation. ?? Imaging tests. The best imaging test to check for an abscess is usually a CT scan of the belly. Other tests, such as ultrasound or MRI, may be used as well. ?? Physical exam. As part of your exam, your healthcare provider will take your temperature. They will also check for tenderness in the belly. Sometimes, the abscess can be felt as a mass in the midsection. How is an intra-abdominal abscess treated? An abscess will often need to be drained of fluid to heal. Most of the time antibiotics are given when an abscess is drained. The type of antibiotic will depend on how bad your abscess is, your age, and any other health-related concerns you may have. One way to remove fluid is through percutaneous drainage. Your healthcare provider guides a needle through the skin to the place where the infection is. This is a short procedure. You will be given aa local anesthetic, and sedative if needed, to help you relax and not feel pain while it is being done. Another way to drain the abscess is with surgery. Surgery may also involve fixing the condition that caused the abscess in the first place, such as a bowel perforation. Sometimes, more than one operation is needed. Many times, a drainage catheter is left in the abscess cavity after it is drained. Your healthcare team will check it and remove it when needed. Your outcome will depend on the cause of your infection and how quickly you received treatment. Early treatment can greatly improve the outcome for people who have an intra-abdominal abscesses. While you are being treated for an abscess, you may need nutritional support. This can be done by placing a feeding tube. When should I call my healthcare provider? Call your healthcare provider right away if you: ?? Have a fever of 100.4??F (38??C), or as instructed by your provider ?? Have belly pain ?? Have nausea or vomiting ?? Have other new symptoms ?? Are at high risk for an infection because you: o Have other risk factors, such as diabetes or inflammatory bowel disease o Smoke o Had recent surgery or medical procedure Rico points about an intra-abdominal abscess ?? An intra-abdominal abscess is a collection of pus or infected fluid that is surrounded by inflamed tissue inside the belly. ?? An intra-abdominal abscess may be caused by bacteria. If left untreated, the bacteria will multiply. This can cause inflammation and kill healthy tissue. ?? If you've recently had surgery or trauma to an abdominal organ and have other risk factors, suchas diabetes or inflammatory bowel disease, watch for signs of an abscess. ?? Early treatment can greatly improve the outcome for people who have intra- abdominal abscesses. ?? During treatment and recovery, you may need to get nutrition through a feeding tube. Next steps Tips to help you get the most from a visit to your healthcare provider: ?? Know the reason for your visit and what you want to happen. ?? Before your visit, write down questions you want answered. ?? Bring someone with you to help you ask questions and remember what your provider tells you. ?? At the visit, write down the name of a new diagnosis and any new medicines, treatments, or tests. Also write down any new instructions your provider gives you. ?? Know why a new medicine or treatment is prescribed and how it will help you. Also know what the side effects are. ?? Ask if your condition can be treated in other ways. ?? Know why a test or procedure is recommended and what the results could mean. ?? Know what to expect if you do not take the medicine or have the test or procedure. ?? If you have a follow-up appointment, write down the date, time, and purpose for that visit. ?? Know how you can contact your healthcare provider if you have questions, especially after officehours or on weekends. Last Reviewed Date: 2023 00:00:00 ?? [id number] [employer]. All rights reserved. This information is not intended as a substitute for professional medical care. Always follow your healthcare professional's instructions. * [facility] - Leola Montano RN - 06/01/2024 12:56 PM EDT Images from the original note were not included. [id number] What You Should Know About Colectomy Being diagnosed with a disease of the colon (also called the bowel or large intestine) can be scary. To take charge of your health, try to learn as much as you can about your treatment options. One option may be a colectomy. This is surgery to remove the diseased or damaged part of your colon. Your healthcare provider might suggest a colectomy to treat: ?? Inflammatory bowel disease (ulcerative colitis or Crohn?s disease) ?? Diverticulitis ?? Cancer How is a colectomy done? A colectomy can be done in 2 ways: ?? Open colectomy. The surgeon removes the diseased colon by making a long, vertical cut (incision)on your belly (abdomen). ?? Laparoscopic-assisted colectomy. The surgeon makes several small cuts in the skin over your belly. Then they put a tiny video camera into 1 of the cuts to see inside your body. They use long, thintools put into the other cuts to perform the surgery. People often have less pain and recover faster because of the small incisions. Your healthcare team will suggest which option is best for you. Be sure you know what to expect andhow your body will work afterwards. After surgery, the remaining ends of the colon may be reattached to each other if possible. If they remove a large portion or all the colon, they may need to create a small opening to the outside of the body (stoma). This is so you can pass stool through the opening. The stoma is a hole made in the skin over your belly (abdomen). Your intestine attaches to the stoma. Stool then goes into a bag that sticks to the skin around the stoma. This is called a colostomy. You might need a colostomy for a short time to let your colon heal after surgery. You?ll have a second surgery a few months later to reconnect the bowel. But depending on your diagnosis, the colostomy may be permanent. When you have a colectomy to treat cancer, the surgeon removes the part of the colon that has cancer in it. They also remove a small piece of the healthy colon on either side of the cancer. They may also remove nearby lymph nodes to check to see if cancer has spread. What are the risks for a colectomy? Many people feel scared or anxious before surgery. These feelings are normal. Talking about your questions and concerns can help you feel better. Your surgeon will talk with you about any risks before the surgery. Some common risks for a colectomy are: ?? Reactions to anesthesia ?? Pneumonia (lung infection) ?? Blood clots in the legs or lungs ?? Internal bleeding in the belly ?? Infection at the incision or inside the belly ?? Hernia ?? Scarring (adhesions) in the belly, which can tighten around the bowel ?? Leaking where the ends of the intestines are sewn together (anastomosis) ?? Damage to nearby organs How do I get ready for a colectomy? Before a colectomy, your healthcare team will do tests to learn more about your specific bowel disease or cancer. These tests are needed to plan your surgery. They may include X-rays, imaging scans, blood tests, an electrocardiogram (ECG), and a colonoscopy. A colonoscopy is a procedure that allows the surgeon to look directly inside your colon and rectum.It?s done with a flexible, tubelike scope that has a tiny light and video camera on the end. What to expect before surgery Follow all instructions from your healthcare team on how to prepare for surgery. Your provider will most likely tell you to prepare for: ?? Emptying your bowels. Your bowels must be as empty as possible before the surgery. You?ll need to change what you eat and drink for a few days before surgery. You may need to do bowel prep 1 to 2 days before surgery, too. This may include a laxative and enemas to clean out your bowels. ?? Stopping certain medicines. You may need to stop taking some of your medicines in the week before the surgery such as blood thinners. Be sure to tell your provider about all the medicines you take. That includes prescription and efid-mts-edxgquf medicines, vitamins, herbs, supplements, marijuana, and street drugs. ?? Fasting before surgery. Follow all instructions you're given about not eating or drinking beforesurgery. ?? Preventing infection. You may be asked to shower with a special soap before your surgery. You might need to take antibiotics to help prevent infection. Any advice and instructions from your provider will help you have a successful surgery and recovery. Ask questions about anything you don?t understand. Take notes and record visits with your providerto help you remember all their instructions. You can request a printed summary of the instructions discussed at your visit. What happens during a colectomy? Here is what to expect during surgery: ?? You'll receive general anesthesia. These medicines allow you to comfortably sleep and not feel pain during surgery. ?? Your healthcare team will connect you to monitors to watch your breathing, heart rate, blood pressure, and oxygen saturation levels. ?? The skin over your belly will be cleaned and hair there may be clipped or shaved. ?? For an open colectomy, the surgeon will make a long cut on your stomach. For a laparoscopic-assisted colectomy, they?ll make several small cuts. ?? The surgeon will remove the diseased part of your colon. ?? The surgeon may sew together the 2 open ends of the colon. Or they?ll make an opening to the outside of your body (stoma). ?? If you have cancer, the surgeon may remove lymph nodes near it. Surgeons often take out at least12 of these lymph nodes to determine if cancer has spread to other areas of the body. ?? Once the surgery is done, the surgeon will close the incision. After surgery, your healthcare team will move you to the post-anesthesia unit care (PACU). What happens after a colectomy? You will wake up in the PACU and be closely watched as you awake from the anesthesia. You?ll stay there until you're fully awake, alert, and breathing well. You'll be attached to monitors that watch your vital signs (such as your heart rate, heart rhythm, oxygen levels, and blood pressure). When you are stable, you'll go to a hospital room. Your healthcare team will check in to see how you?re feeling as you recover. You'll likely be in the hospital for 3 to 7 days. You'll need to take pain medicine for several days to control your pain. Managing pain at this stage is important. It helps you to cough, take deep breaths, and get out of bed a bit easier as you recover. You may receive some liquids as your colon begins to work again. Your healthcare team will let you know when you can eat solid foods again. You will need to follow a low-residue, low-fiber diet for afew weeks to decrease the amount of stool passing through your bowel as it heals. A dietitian will talk with you about what to eat and what to avoid. If you have a colostomy, an ostomy nurse will teach you how to take care of your stoma and get ostomy supplies. Your provider will keep a close eye on you as you heal in the hospital. Before you leave, make sureyou know what problems or side effects to watch for. Ask questions about anything that concerns you. Your provider will schedule follow-up appointments to check on your progress. When to call your provider Talk with your provider about problems you should watch for. Knowing what to look for can help you deal with any serious side effects or issues quickly. Call your provider or seek medical care right away if you have any of the following: ?? Fever of 100.4??F (38??C) or higher, or as advised by your provider ?? Chills ?? Fast, irregular heartbeat ?? Signs of infection around the incision, such as redness, warmth, and pain ?? Drainage or leaking from the incision site ?? The incision opens, or the edges pulling apart ?? Bleeding that soaks through the bandage ?? Any abnormal bleeding from other parts of the body ?? Trouble peeing ?? Changes in how your pee looks or smells ?? Not having a bowel movement for 2 or more days ?? Swelling in your hand, arm, or chest that gets worse or isn?t getting better 1 or 2 weeks after surgery ?? Pain, redness, swelling, or warmth in an arm or leg Know what problems to watch for and when you need to call your healthcare provider or get immediatemedical care. Also be sure you know what number to call to get help after office hours and on weekends and holidays. Call 911 Call 911 right away if you have either of these: ?? Cough or shortness of breath ?? New chest pain Follow-up care Your provider may advise additional tests and procedures. Before you agree to a test or procedure, ask about: ?? The name of the test or procedure ?? Why you are having the test or procedure ?? What results to expect and what they mean ?? The risks and benefits ?? Any possible side effects or complications ?? When and where you will have the test or procedure ?? Who will do the test or procedure and what that person?s qualifications are ?? What would happen if you did not have the test or procedure ?? Any alternate tests or procedures ?? When and how you will get the results ?? Who to call if you have questions or problems ?? Whether your insurance covers the test or procedure ?? How much the test or procedure costs, out of pocket Last Reviewed Date: 2023 00:00:00 ?? [id number] [employer]. All rights reserved. This information is not intended as a substitute for professional medical care. Always follow your healthcare professional's instructions. * [facility] - Leola Montano RN - 06/01/2024 12:56 PM EDT Images from the original note were not included. 42147 Exploratory Laparotomy Exploratory laparotomy is surgery to open up the belly area (abdomen). This surgery is done to findthe cause of problems (such as pain or bleeding) that imaging tests could not diagnose. It's also used when an abdominal injury needs emergency medical care. It might be done to look for the source of an infection in the abdominal space. This surgery uses 1 large cut (incision). The provider can then see and check the organs inside the abdomen. If the cause of the problem is found during the procedure, then treatment is often done at the same time. In some cases, a minimally invasive surgery called exploratory laparoscopy may be used instead. That method uses a tiny camera and several small in cisions. But in many cases, an exploratory laparotomy, in which the abdomen is opened up, is preferred. Read on to learn more about this procedure. This is an example of the kind of incision the surgeon may use to perform exploratory laparotomy. Reasons for the surgery Organs that may be examined during exploratory laparotomy include the: ?? Liver. ?? Gallbladder. ?? Spleen. ?? Pancreas. ?? Kidneys. ?? Stomach. ?? Small intestine (small bowel). ?? Large intestine (colon or large bowel). ?? Appendix. ?? Ovaries, fallopian tubes, and uterus (in women). ?? Lymph nodes. ?? Abdominal blood vessels. ?? Membranes that line the abdominal cavity. Getting ready for the surgery The surgery takes place in a hospital. It's done by a surgeon. You will likely stay in the hospitalfor a few days or longer. To get ready for the surgery, do the following: ?? Tell your health care provider about any medicines you?re taking. This includes dvnx-nxx-gqfmyofvnbccpool, prescription medicines, herbs, illegal drugs, vitamins, and other supplements. You may need to stop taking some or all of them for a time before the surgery if this is even possible. Oftentimes an exploratory laparotomy is an emergency. ?? Tell your provider if you drink alcohol. This is very important if you are a heavy drinker. Alcohol withdrawal can be life-threatening. So be honest with your provider. ?? Also tell your provider if you have any allergies or other health problems. This includes recentillnesses, especially any bleeding problems. ?? Stop smoking. Don't smoke on the day of surgery. ?? Follow any directions you are given for not eating or drinking before surgery. The day of the surgery ?? Many exploratory laparotomy surgical procedures are done on an emergency basis after an injury or accident. ?? You will be assessed for heart, lung, or other problems during surgery. ?? You will need to change into a hospital gown. ?? Before the surgery begins, an I.V. (intravenous) line is put into a vein in your arm or hand. This line supplies fluids and medicines. ?? You will be given medicine (general anesthesia) to keep you free of pain. This medicine puts youin a deep sleep during the surgery. ?? A tube will be placed through your mouth and into your throat to help with breathing during the surgery. Also, monitors are attached to your body. These record your vital signs, such as heart rate, oxygen levels, and blood pressure, during the surgery. ?? A thin tube (catheter) is placed into your bladder. This tube drains urine from your bladder during the surgery. The tube may be left in place after surgery. During the surgery ?? The skin over your belly is cleaned. ?? An incision is made in your belly. ?? The tissue, blood vessels, and organs in your belly are carefully looked at and checked for problems. ?? Tissue samples (biopsy) may be removed and sent to a lab for study. ?? If the cause of the problem is found, treatment may be done then, if needed. ?? When the surgery is done, the incision is closed with stitches (sutures) or sheridan. A drain maybe placed in the abdomen to remove any extra fluids. After the surgery ?? You will be taken to the postanesthesia care unit to be closely kept track of by nurses until you have recovered from the anesthesia. When you are more awake, alert, and stable, you will be moved to your hospital room. ?? Medicines are given to help prevent infection and to manage pain, if needed. ?? You may be able to eat and drink quickly, within 1day of surgery, depending on your situation. You may not be given food or drink until your bowels start to work normally again. This may take a few days. ?? You will need to get up and walk around with help as soon as you are able. This helps to preventblood clots. ?? You may also be given cough and deep breathing exercises to do. These help prevent pneumonia. ?? The tube to drain urine may be left in place for a few days or removed after surgery. ?? If a drain was used for your incision, this is often removed. before discharge. If not, you willbe instructed on how to care for and empty the drain at home. ?? You will be able to go home when the health care provider says there are no issues of concern. ?? Arrange for an adult family member or friend to drive you home. ?? Before leaving, make sure you have all the prescriptions and home care instructions you will need. Also make sure you have a contact number for your provider or the hospital. This is in case you have problems or questions after the surgery. ?? Prevent constipation, especially if you were prescribed opioid pain medicines. Take fiber as directed and follow bowel care instructions from your provider. ?? Don't lift anything heavier than 5 pounds for about 6 weeks. This gives tissue time to heal, andcan prevent a hernia. When to call your doctor After you get home, contact your health care provider if you have: ?? Fever of 100.4??F (38??C) or higher, or as advised by your provider. ?? Chills. ?? Increased pain, redness, swelling, bleeding, or drainage at the incision site. ?? Pain that can't be controlled with the medicines prescribed for you. ?? Swollen belly. ?? Diarrhea or constipation that does not get better in 2 days. ?? Bloody or black, tarry stools. ?? Problems or pain with urination. ?? Chest pain, shortness of breath. (Call 911.) ?? Upset stomach (nausea) and vomiting. ?? Dizziness or fainting. (Call 911.) ?? Leg swelling or pain. Follow-up Recovery time will vary for each person. It may take as long as 4 to 6 weeks. You will need to see your provider for follow-up. This is to remove any stitches or sheridan and to check your healing progress. Risks and possible complications These vary depending on the reason for the surgery. The most common risks and possible complications include: ?? Bleeding. ?? Infection. ?? Not being able to find the cause of the problem, so more surgery or other treatments may be needed. ?? Incision not healing well. ?? Damage, injury, or problems with the bowels. ?? Risks of reaction to anesthesia. Last Reviewed Date: 2024 00:00:00 ?? [id number] [employer]. All rights reserved. This information is not intended as a substitute for professional medical care. Always follow your healthcare professional's instructions. * [facility] - Leola Montano RN - 06/01/2024 12:52 PM EDT Images from the original note were not included. [id number] Open Bowel Resection: What to Expect at Home Your Recovery You are likely to have pain that comes and goes for the next few days after bowel surgery. You may have bowel cramps, and your cut (incision) may hurt. You may also feel like you have the flu. You may feel tired and nauseated. This is common. You should feel better after a week and will probably beback to normal in 2 to 3 weeks. This care sheet gives you a general idea about how long it will take for you to recover. But each person recovers at a different pace. Follow the steps below to get better as quickly as possible. How can you care for yourself at home? Activity ?? Rest when you feel tired. Getting enough sleep will help you recover. ?? Try to walk each day. Start by walking a little more than you did the day before. Bit by bit, increase the amount you walk. Walking boosts blood flow and helps prevent pneumonia and constipation. ?? Avoid strenuous activities, such as biking, jogging, weight lifting, or aerobic exercise, until your doctor says it is okay. ?? Avoid lifting anything that would make you strain. This may include heavy grocery bags and milk containers, a heavy briefcase or backpack, cat litter or dog food bags, a vacuum still cleaner tube, or a child. ?? Ask your doctor when you can drive again. ?? You will probably need to take 3 to 4 weeks off from work. It depends on the type of work you doand how you feel. You may need to take off 4 to 6 weeks if you lift heavy objects in your job. ?? You may shower 24 to 48 hours after surgery, if your doctor says it is okay. Pat the cut (incision) dry. Do not take a bath for the first 2 weeks, or until your doctor tells you it is okay. ?? Ask your doctor when it is okay for you to have sex. Diet ?? You may not have much appetite after the surgery. But try to eat healthy foods. Your doctorwill tell you about any foods you should not eat. ?? Eat a low-fiber diet for several weeks after surgery. Eat many small meals throughout the day. Add high-fiber foods a little at a time. ?? Eat yogurt. It puts good bacteria into your colon and helps prevent diarrhea. ?? Try to avoid nuts, seeds, and corn for a while. They may be hard to digest. ?? You may need to take vitamins that contain sodium and potassium. Ask your doctor. ?? Drink plenty of fluids to avoid becoming dehydrated. Medicines ?? Your doctor will tell you if and when you can restart your medicines. You will also begiven instructions about taking any new medicines. ?? If you stopped taking aspirin or some other blood thinner, your doctor will tell you when to start taking it again. ?? Take pain medicines exactly as directed. o If the doctor gave you a prescription medicine for pain, take it as prescribed. o If you are not taking a prescription pain medicine, ask your doctor if you can take an tqif-smh-hkkximw medicine. o Do not take two or more pain medicines at the same time unless the doctor told you to. Many pain medicines have acetaminophen, which is Tylenol. Too much acetaminophen (Tylenol) can be harmful. ?? If you think your pain medicine is making you sick to your stomach: o Take your medicine after meals (unless your doctor tells you not to). o Ask your doctor for a different pain medicine. ?? If your doctor prescribed antibiotics, take them as directed. Do not stop taking them just because you feel better. You need to take the full course of antibiotics. ?? You may need to take some medicines in a different form. You will be told whether to crush pillsor take a liquid form of the medicine. ?? If your doctor gives you a stool softener, take it as directed. Incision care ?? If you have strips of tape on the incision, leave the tape on until it falls off. ?? Gently wash the area daily with warm, soapy water, and pat it dry. Don't use hydrogen peroxide or alcohol, which can slow healing. You may cover the area with a gauze bandage if it oozes or rubs against clothing. ?? Change the bandage every day or if it gets wet or dirty. Follow-up care is a rico part of your treatment and safety. Be sure to make and go to all appointments, and call your doctor if you are having problems. It's also a good idea to know your test resultsand keep a list of the medicines you take. When should you call for help? Call 911 anytime you think you may need emergency care. For example, call if: ?? You passed out (lost consciousness). ?? You are short of breath. Call your doctor now or seek immediate medical care if: ?? You are sick to your stomach and cannot drink fluids or keep them down. ?? You have signs of a blood clot in your leg (called a deep vein thrombosis), such as: o Pain in your calf, back of the knee, thigh, or groin. o Redness and swelling in your leg or groin. ?? You have signs of infection, such as: o Increased pain, swelling, warmth, or redness. o Red streaks leading from the incision. o Pus draining from the incision. o A fever. ?? You have pain that does not get better after you take pain medicine. ?? You have loose stitches, or your incision comes open. ?? Bright red blood has soaked through the bandage. ?? You cannot pass stools or gas. Watch closely for any changes in your health, and be sure to contact your doctor if you have any problems. Current as of: December 02, 2022 Content Version: 14.0 Care instructions adapted under license by your healthcare professional. If you have questions about a medical condition or this instruction, always ask your healthcare professional. [employer] disclaims any warranty or liability for your use of this information. ?? [id number] [email or web address], [place]. * [facility] - Leola Montano RN - 06/01/2024 12:52 PM EDT Images from the original note were not included. 12545 Colorectal Surgery: Recovering in the Hospital and at Home You have had colorectal (bowel) surgery. When the surgery is done, you?ll be taken to the PACU (postanesthesia care unit). Health care providers will closely keep track of your blood pressure, heart rate, breathing, and surgical areas while you wake from anesthesia. You?ll also get pain medicine asneeded to keep you comfortable. You?ll be moved to a regular hospital room when you're stable. You?ll then be watched closely to besure you?re healing well. Your hospital stay may last from a few days to a week or longer. This depends on how well you progress. Once you are at home, follow instructions to help make sure you have a full recovery. Your healthcare provider will help you take short walks soon after surgery. Right after surgery ?? If you have a urinary catheter, it will likely be taken out shortly after surgery. ?? Your I.V. (intravenous) line will stay in place for a few days to give you fluids and medicines.You will continue to receive pain medicines from the I.V. until you are able to take pain pills by mouth if needed. ?? Soon after surgery, you?ll be up and walking around. This helps improve blood flow and prevent blood clots. It also helps your bowels get back to normal. This will help prevent a bowel slowing or blockage (ileus). Your health care team will listen to the sounds in your belly (your 'bowel sounds'). This is to make sure your bowels are starting to work normally. ?? You?ll be given breathing exercises to keep your lungs clear and prevent infection. Stoma Care If a stoma (ostomy) was made during surgery, your health care providers will show you how to care for it. You may also meet with an ostomy nurse. They will teach you about stoma care. The stoma is anopening in your abdomen where your small or large intestine was connected. It will drain stool and mucus. Some stomas are temporary and some are permanent. It depends on your situation. Eating again In some cases, you may need to wait to eat. But many times, you can start eating lightly soon aftersurgery. This is part of a program for faster recovery. It's called enhanced recovery after surgery. Recovering at home In most cases, you?ll visit your health care provider shortly after leaving the hospital. You can get back to your normal routine in the weeks to about a month after surgery. This depends on your situation. Full recovery may take 4 to 6 weeks or longer. While your body heals, you may tire more easily. You also are likely to have some bloating. Loose stools and more frequent bowel movements are also common. This may get better over time. But it may never fully go away. It will depend on the type of bowel surgery you had and specifics of your case. Resuming everyday activities Being active helps your body heal. But you must protect your healing incisions. Make sure you: ?? Walk as much as you feel up to. ?? Don't do any heavy lifting or vigorous exercise until your health care provider says it?s OK. Follow your provider?s advice about climbing stairs and bathing. ?? Don't drive right away. Wait until you?re no longer taking pain medicines. Also wait until you can readily press down on the brake pedal. When to call your doctor Contact your health care provider or get medical care right away if you have: ?? A fever of 100.4??F (38??C) or higher, or as directed by your provider. ?? Chills. ?? Nausea or vomiting that doesn't get better. ?? Unusual redness, swelling, drainage, or pain around your incision. ?? Leg pain, redness, or swelling. ?? Unexpected diarrhea, or have not passed gas or had a bowel movement for 24 hours. ?? Belly swelling that gets worse or doesn't go away. ?? Pain in the belly or around the stoma that lasts or gets worse. Call 911 Call 911 if you have: ?? Trouble breathing. ?? Chest pain. ?? A large amount of bleeding from your rectum or the surgery site. Last Reviewed Date: 2024 00:00:00 ?? [id number] [employer]. All rights reserved. This information is not intended as a substitute for professional medical care. Always follow your healthcare professional's instructions. * Can Alex - Leola Montano RN - 06/01/2024 12:52 PM EDT Images from the original note were not included. 33501 Understanding Intestinal Obstruction The small and large intestines are long tubes in the belly that play a big part in digesting food. An intestinal obstruction is when the small or large intestine is blocked at one or more spots. Thisprevents air, food, stool, and fluid from passing normally through the digestive system. It's also called a bowel obstruction or blockage. What causes intestinal obstruction? Intestinal obstruction can be caused by: ?? Scar tissue inside the belly. Scar tissue can form after surgery or after some intestinal infections. It can press on the intestine. ?? A hole or split in the belly wall (hernia). If you have a hernia, part of your intestine may slip through the belly wall and get pinched. Then food and fluid can?t flow through as usual. ?? Tumors. These can grow inside or outside the intestines. Tumors can block the intestines from the inside. Or they can press on them from the outside. ?? Twisting of the intestine (volvulus). The intestine can sometimes twist around on itself. This can cause a blockage. ?? Crohn's disease, which is an inflammatory disease. ?? Postoperative ileus. This is when your bowel stops working the right away after you have abdominal surgery. It may also occur after you have other types of surgery. Anesthesia and surgery temporarily slow down intestinal movement. An ileus after surgery often goes away on its own. But it may need to be treated if it lasts longer than expected. Symptoms of intestinal obstruction Symptoms of intestinal obstruction can vary. It depends on where the blockage is and if the intestine is partly or fully blocked. Symptoms may include: ?? Belly pain or cramping. This may be constant or come and go. ?? A feeling of fullness or bloating ?? Upset stomach (nausea) or vomiting ?? Diarrhea ?? Constipation ?? Loss of fluid (dehydration) ?? Inability to pass gas or stool ?? Fever or sweating ?? Discomfort and bloating after meals Treatment for intestinal obstruction Treatment depends on where the blockage is and if the intestine is partly or fully blocked. It alsodepends on what is causing the blockage. Most cases of small intestinal obstruction will go away after a few days. If you need treatment, it may include: ?? Removing the contents of the digestive tract above the blockage. This is done through a tube that's inserted through your nose and goes down into your stomach. ?? Giving fluids through an IV (intravenous) line placed in your arm or hand. This replaces fluids lost with vomiting or diarrhea. It may also be used to give you medicine, if needed. ?? Having surgery. For a serious intestinal obstruction, you often will need surgery to remove the blockage and fix any damage. ?? Placing a tube (stent) to keep an area of the large intestine (colon) open if a tumor is blockingit. This can be done during a colonoscopy. Possible complications of intestinal obstruction Intestinal obstructions can have serious complications, such as: ?? Blood flow to the intestine may be blocked. This can cause intestinal tissue to . ?? Leakage of intestine contents into the belly ?? Irritation or infection in the belly cavity ?? When to call your healthcare provider Call your provider right away if you have any of these: ?? A new lump or bulge in the skin on your belly or groin ?? Vomiting that won?t stop ?? Inability to pass gas or stool ?? Swollen belly or increasing belly pain ?? Weakness, dizziness, or fainting ?? Abnormal drowsiness or confusion ?? Reduced urine output or extreme thirst ?? Fever of 100.4??F (38??C) or higher, or as directed by your provider ?? Chills ?? Pain that gets worse ?? Symptoms that don?t get better with treatment, or symptoms that get worse ?? New symptoms Last Reviewed Date: 2021 00:00:00 ?? [id number] [employer]. All rights reserved. This information is not intended as a substitute for professional medical care. Always follow your healthcare professional's instructions. * Care Plan - Alessandra Keene RN - 06/01/2024 11:47 AM EDT Problem: Adult Inpatient Plan of Care Goal: Plan of Care Review Outcome: Ongoing, Progressing Flowsheets (Taken 05/31/2024 0000 by Donald Acharya RN) Progress: improving Plan of Care Reviewed With: patient Goal: Patient-Specific Goal (Individualized) Outcome: Ongoing, Progressing Flowsheets (Taken 06/01/2024 0830) Patient/Family-Specific Goals (Include Timeframe): pt will remain free from falls for the duration of the shift. Individualized Care Needs: safety Anxieties, Fears or Concerns: none expressed Goal: Absence of Hospital-Acquired Illness or Injury Outcome: Ongoing, Progressing Intervention: Identify and Manage Fall Risk Flowsheets (Taken 06/01/2024 1146) Safety Promotion/Fall Prevention: assistive device/personal items within reach mobility aid in reach nonskid shoes/slippers when out of bed room organization consistent clutter-free environment maintained fall prevention program maintained safety round/check completed toileting scheduled lighting adjusted Intervention: Prevent Skin Injury Flowsheets Taken 06/01/2024 1146 by Alessandra Keene, RN Skin Protection: incontinence pads utilized transparent dressing maintained Taken 06/01/2024 1000 by Brooklyn Goldsmith CNA Body Position: turned left Intervention: Prevent and Manage VTE (Venous Thromboembolism) Risk Flowsheets (Taken 06/01/2024 0830) VTE Prevention/Management: medication Intervention: Prevent Infection Flowsheets (Taken 06/01/2024 1146) Infection Prevention: single patient room provided rest/sleep promoted environmental surveillance performed equipment surfaces disinfected visitors restricted/screened hand hygiene promoted personal protective equipment utilized Goal: Optimal Comfort and Wellbeing Outcome: Ongoing, Progressing Intervention: Monitor Pain and Promote Comfort Flowsheets (Taken 05/29/20242020 by Marcie Fisher, KRISTINA) Pain Management Interventions: medication (see MAR) Intervention: Provide Person-Centered Care Flowsheets (Taken 06/01/2024 1146) Trust Relationship/Rapport: choices provided care explained reassurance provided thoughts/feelings acknowledged emotional support provided empathic listening provided questions answered questions encouraged Goal: Readiness for Transition of Care Outcome: Ongoing, Progressing Problem: Infection Goal: Absence of Infection Signs and Symptoms Outcome: Ongoing, Progressing Problem: Self-Care Deficit Goal: Improved Ability to Complete Activities of Daily Living Outcome: Ongoing, Progressing * Progress Notes - Shola Sheridan, [employer]TER - 06/01/2024 9:58 AM EDT CVT Progress Note 24 Hour Events/HPI: No acute events or issues overnight. Patient remained hemodynamically stable, afebrile, and rested comfortably overnight. Calorie count completed and demonstrated pt was only meeting 12-13% of calorie requirements. Remains on TPN. WBC uptrending. Discussed with blue surgery. Plan for CT abd to further eval. Review of Systems: A complete ROS was obtained. All were negative except as noted in HPI. Objective: All laboratory data, images, tracings, and vital sign data for past 24 hours are personally reviewed unless otherwise noted. @PATIENTWT@ , Weight: 61.1 kg (134 lb 12.8 oz) , Ht Readings from Last 1 Encounters: 05/31/24 1.549 m (5' 0.98 ) , Body mass index is 22.84 kg/m??. VITALS (last 24h) Temp: [36.6 ??C (97.8 ??F)-37.1 ??C (98.7 ??F)] 36.6 ??C (97.8 ??F) Heart Rate: [88-102] 94 Resp: [19-27] 19 BP: (117-133)/(71-85) 133/85 Visit Vitals BP 133/85 Pulse 94 Temp 36.6 ??C (97.8 ??F) (Oral) Resp 19 Ht 1.549 m (5' 0.98 ) Wt 54.8 kg (120 lb 13 oz) SpO2 97% BMI 22.84 kg/m?? Smoking Status Every Day BSA 1.54 m?? I & O Summary Intake/Output Summary (Last 24 hours) at 06/01/2024 0958 Last data filed at 06/01/2024 0000 Gross per 24 hour Intake 480 ml Output 663 ml Net -183 ml LABS CBC WBC 33.03 (H) Hb 9.7 (L) Plt 644 (H) Hct 29.3 (L) ANC 26.89 (H) INR ??, PTT ??, Anti-Xa ?? BMP Na 126 (L) Cl 95 (L) BUN 12 Glu 495 (H) K 4.9 Co2 20 (L) Cr 0.54 (L) Ca 8.0 (L) iCa ?? Mg 2.3, Phos 5.2 (H) Lactate ?? LFT AST ?? AlkPhos ?? T Prot ?? ALK ?? Bili ?? Alb ?? D.Bili ?? HOURS) MEDICATIONS acetaminophen, 500 mg, Oral, q6h LINDA aspirin, 81 mg, Oral, Daily buPROPion XL, 300 mg, Oral, Daily citalopram, 40 mg, Oral, Daily fat emulsion fish/plant based, 250 mL, Intravenous, Every other day heparin (porcine), 5,000 Units, Subcutaneous, q8h iohexol, 500 mL, Oral, Once in imaging lidocaine, 2 patch, Apply externally, q24h melatonin, 6 mg, Oral, Nightly methocarbamol, 500 mg, Oral, TID metoprolol tartrate, 25 mg, Oral, BID pantoprazole, 40 mg, Oral, Daily potassium chloride, 40 mEq, Oral, Once primidone, 50 mg, Oral, BID rosuvastatin, 40 mg, Oral, Nightly sodium chloride, 10 mL, Intravenous, q12h Adult 2-in-1 TPN, 40 mL/hr, Last Rate: 40 mL/hr (05/31/242245) PRN medications: benzocaine-menthol, calcium carbonate, hydrALAZINE, HYDROmorphone OR HYDROmorphone, ipratropium-albuterol, [DISCONTINUED] ondansetron ODT OR ondansetron OR [DISCONTINUED]ondansetron, oxyCODONE OR oxyCODONE, phenol, simethicone, sodium chloride, sodium chloride Physical Exam: GENERAL: 54F. NAD on RA EYES: No scleral icterus or conjunctivitis HENT: Atraumatic, normocephalic, nares patent, mucus membranes moist NECK: Supple, trachea midline RESP/CHEST: Symmetric expansion; non labored. CTA bilaterally. Midsternal incision CDI. Sternum stable. CARD: regular rate and rhythm, normal S1 and S2, no murmur, rub, or gallop, Pedal pulses palpable +2. , no JVD. No edema Extremities: No cyanosis or clubbing. GI: Soft, Nontender, nondistended. BS present and normoactive x 4 quadrants. Midline abd incision with wound vac in place. LENA x 2 to left abd. Colostomy with ostomy bag in place SKIN: No rash. NEURO: AAOx4. Motor intact and no focal deficits PSYCH: Mood and affect congruent and appropriate to situation. Assessment and Plan: CAD, multiple vessel NSTEMI (non-ST elevated myocardial infarction) - Patient presented to OSH on 05/01/24 c/o chest pain - Diagnosed at OSH with elevated troponins of 0.05 to 0.23 to 0.16 LHC reveal mvCAD - S/p CABG x4 with Dr. Austin on 05/06 - continue asa, statin, metoprolol - Routine post cardiac surgery care: sternal precautions x 6 weeks, PT, bowel regimen to prevent constipation and aggressive pulmonary toilet. Anxiety and depression - Continue home bupropion XL 300 mg daily - Continue home citalopram 40 mg daily COPD (chronic obstructive pulmonary disease) - Duo nebs q6 prn - Wean O2 for SPO2 goal >88% GERD (gastroesophageal reflux disease) - 05/07 extubated, no on home PPI dc'd - 05/08 pt denies any GERD symptoms - 05/09 + PPI for reflux - 05/10 docusate, metoclopramide, miralax, senna, simethicone, continue NG to low intermitted, CLD for pt comfort, passing gas - 05/11 as above denies reflux today NG clamp trial - 05/14 PPI per blue surgery rec for blood tinged NG output Leukocytosis - 05/31: WBC 26.51 - 06/01: WBC 33.03. CT abd per blue surgery - afebrile - monitor Hyperlipidemia - Statin THOM (obstructive sleep apnea) - Refusing home CPAP Hypertension - metoprolol Cardiac volume overload - diuresis prn Hypoglycemia - Resolved once TPN started Nausea with vomiting - Advance PO diet as able - prn zofran Acute blood loss anemia (ABLA) - H/H 10.2/31.0 - 06/01: H/H 9.7/29.3 - Monitor and transfuse prn Gastric perforation Colonic perforation Ileus - S/p ex lap with left colon resection with end colostomy with blue surgery on 05/23 - 06/01: CT abd per Blue surgery giving increasing WBC On total parenteral nutrition (TPN) - Started on 05/20 - 05/31: Calorie count completed and demonstrated pt was only meeting 12-13% of calorie requirements. - Continue TPN. Electrolyte abnormality - monitor and replace prn Post-op pain - Abdominal tenderness and pain - MMPC Delirium - Delirium precautions Plan: Continue TPN CT abd per Blue surgery giving increasing WBC Cardiothoracic Surgery [phone] * Progress Notes - Rebel Ayala MD - 06/01/2024 9:01 AM EDT I saw this patient today on the restrepo. She is recovering after a colectomy for perforation. She has an end stoma which looks nice. She is eating. Her pain is overall improving. Her incision has a vacuum dressing on which will get changed regularly. Abdominal exam is not concerning. Her white blood count is elevated today and there???s concern that she could have a recurrent or residual abdominal abscess. We will obtain a CT scan and follow up with her and the primary team with the results. * Progress Notes - Db Kline - 06/01/2024 9:01 AM EDT Pharmacist TPN Progress Note Patient: Rere Hunter Age: 53 y.o. Admission Date: [id number] Subjective/Objective/Hospital Course: 53 y.o. female with PMHx of CAD, HTN, COPD, GERD, tremor, anxiety, depression, and tobacco use, who is currently hospitalized under the care of the CVT surgery team after having a CABG on 05/06/24. Since surgery she has developed nausea, vomiting, and abdominal pain with imaging findings consistent with ileus. Patient has had inadequate energy intake likely related to ileus and has been NPO x [address] 05/20 showed intraabdominal fluid adjacent to stomach concerning for possible perforation. UGI with no perforartion. TPN consult for ileus + possible leak. -- 05/17: TPN consult placed -- 05/19: TPN initiated -- 05/23: CT overnight with PO contrast more convincing for colonic perforation instead of stomach perf. OR with general surgery for left hemicolectomy and colostomy creation. -- 05/25: CLD ordered late afternoon -- 05/28: PO diet ordered -- 05/29: S/P Exploratory laparotomy, extensive lysis of adhesions, left colectomy(performed by colorectal surgery), end colostomy creation, abdominal washout, application of negative pressure wound VAC therapy to skin and soft tissues on 05/23 d/t colon perforation. -- 05/31: Calorie count results: 3-day ave = ~206kcal; 6g protein. Patient meeting ~12-13%kcal; 8% protein needs. Problem List[1] Medical History[2] Surgical History[3] Allergies: Latex and Oxycodone LABS: Results from last 7 days Lab Units 06/01/24 0120 05/31/24 0250 05/30/24 0513 05/29/24 0700 05/29/24 0535 05/28/24 0047 05/27/244 05/26/24 0327 GLUCOSE mg/dL 495* 107* 112* 104* 600* 106* 127* 122* BUN mg/dL 12 14 13 CREATININE mg/dL 0.54* 0.52* 0.52* 0.58* 0.59* 0.66 0.71 0.73 SODIUM mmol/L 126* 129* 131* 132* 128* 137 134* 136 POTASSIUM mmol/L 4.9 3.7 3.7 4.0 5.1* 4.3 4.1 4.5 CHLORIDE mmol/L 95* 95* 96* 97 95* 102 99 104 CO2 mmol/L 20* 25 24 25 22 26 26 24 CALCIUM mg/dL 8.0* 8.3* 8.0* 8.3* 8.1* 8.2* 8.4* 7.8* PHOSPHORUS mg/dL 5.2* 4.4 4.3 4.1 5.6* 3.8 4.7* 4.0 MAGNESIUM mg/dL 2.3 2.0 1.9 -- 2.1 1.9 2.1 2.1 Results from last 7 days Lab Units 06/01/24 0120 05/31/24 0250 05/30/24 0513 05/29/24 0535 05/28/24 0047 05/27/24 0454 05/26/24 0327 WBC 10*3/uL 33.03* 26.51* 23.21* 22.52* 25.00* 30.77* 34.71* HEMOGLOBIN g/dL 9.7* 10.2* 9.7* 9.3* 9.7* 9.5* 7.1* HEMATOCRIT % 29.3* 31.0* 29.7* 28.9* 30.1* 29.8* 22.4* PLATELETS 10*3/uL 644* 670* 603* 528* 442* 413* 378* Results from last 7 days Lab Units 06/01/24 0120 05/31/24 0250 05/30/24 0513 05/29/24 0535 05/28/24 0047 05/27/24 0454 05/26/24 0327 ALBUMIN g/dL 2.2* 2.5* 2.3* 2.0* 2.1* 2.1* 2.0* Nutrition Labs: Lab Results Component Value Date TRIG 76 05/19/2024 BILITOT 0.9 05/23/2024 ALBUMIN 2.2 (L) 06/01/2024 PREALBUMIN 6.5 (L) 05/09/2024 HGBA1C 5.3 05/01/2024 CRP 225.3 (H) 05/17/2024 IRON 25 (L) 05/14/2024 TIBC 156 (L) 05/14/2024 Microbiology Results Procedure Component Value Units Date/Time Blood Culture (Aerobic/Anaerobet Set) [[id number]] Collected: 05/23/24 1020 Order Status: Completed Specimen: Blood, Venous Updated: 05/24/24 1101 Culture No growth at day 1 Fungal Blood Culture [[id number]] Collected: 05/17/241812 Order Status: Completed Specimen: Blood, Venous Updated: 05/24/24 0638 Culture No Fungal Growth at 1 Week AFB Blood Culture [[id number]] Collected: 05/17/241812 Order Status: Completed Specimen: Blood, Venous Updated: 05/24/24 0638 AFB Culture No Mycobacterial Growth at 1 Week Vitals: Visit Vitals BP 133/85 Pulse 94 Temp 36.6 ??C (97.8 ??F) (Oral) Resp 19 Jaida Coma Scale Score: 15 Shaan Scale Score: 18 Oxygen Therapy: None (Room air) Skin Integrity: Bruising (Thornton (INSURANCE VERIFIER, glued), right colostomy, s/p chest tube sites, mid-abdominal wound vac (black foam), L SVG site (INSURANCE VERIFIER and glued)) Edema: Generalized Wt Readings from Last 3 Encounters: 06/01/24 54.8 kg (120 lb 13 oz) 06/28/23 59 kg (130 lb) 04/26/23 62.6 kg (138 lb) Current Diet Order: Dietary Orders (From admission, onward) Start Ordered 05/29/24 1449 Oral nutrition supplements (Adult Diet Panel) Until discontinued Question Answer Comment Supplement frequency: Breakfast Supplement frequency: Lunch Supplement frequency: Dinner Breakfast supplement: Roque Fruit Punch Quantity for Breakfast of Roque Fruit Punch Packet One Lunch supplement: Boost Very High Calorie Vanilla Quantity for Lunch of Boost Very High Calorie - Vanilla One Dinner supplement: Roque Fruit Punch Quantity for Dinner of Roque Fruit Punch Packet One 05/29/24 1448 05/29/24 1448 Adult diet Diet texture: Regular; Carbohydrate restriction: Consistent Carb 2 (80 gm max/meal); Fat restriction: Cardiac; GI: Ostomy (Adult Diet Panel) Diet effective now References: IDDSI Diet Texture Guide Question Answer Comment Diet texture Regular Carbohydrate restriction: Consistent Carb 2 (80 gm max/meal) Fat restriction: Cardiac GI Ostomy 05/29/24 1447 Current Medications acetaminophen, 500 mg, Oral, q6h LINDA aspirin, 81 mg, Oral, Daily buPROPion, 150 mg, Oral, BID FOLLOWED BY buPROPion XL, 300 mg, Oral, Daily citalopram, 40 mg, Oral, Daily fat emulsion fish/plant based, 250 mL, Intravenous, Every other day heparin (porcine), 5,000 Units, Subcutaneous, q8h lidocaine, 2 patch, Apply externally, q24h melatonin, 6 mg, Oral, Nightly methocarbamol, 500 mg, Oral, TID metoprolol tartrate, 25 mg, Oral, BID pantoprazole, 40 mg, Oral, Daily potassium chloride, 40 mEq, Oral, Once primidone, 50 mg, Oral, BID rosuvastatin, 40 mg, Oral, Nightly sodium chloride, 10 mL, Intravenous, q12h Adult 2-in-1 TPN, 40 mL/hr, Last Rate: 40 mL/hr (05/31/24 7476) Current Anthropometrics: Height: 154.9 cm (5' 0.98 ) Weight: 61.1 kg (134 lb 12.8 oz) [place] body weight: 47.8 kg (105 lb 4.8 oz) Adjusted ideal body weight: 52.8 kg (116 lb 5.7 oz) (126.25%) of IBW Body mass index is 25.13 kg/m??. Adjusted wt: 50.9 kg (if over 125% of IBW) CENTRAL IV Access: PICC (05/18/24) Estimated Nutritional Needs: HBE: 1153 Stress Factor: 1.2-1.4 Total Calories/day: 2642-7670 Protein (amino acids): 1.3-1.6 grams/kg Protein (Amino acids): 66-81 grams/day Measured Energy Needs: Respiratory Quotient: 06/01/2024 Plan/Recommendation: Labs reviewed. Continue half-rate TPN. Will continue to monitor. HALF-RATE TPN: DEXTROSE: 15% (144 g/day CHO) AMINO ACIDS: 5% (48 g/day) K @ 30 mEq/L @ 40 ml/hr, with 30mg/day thiamine, MVI, and Trace elements Every other day 250ml 20% SMOF lipids Replace electrolytes outside of TPN Calcium and/or Phosphorus supplements MUST be in a separate line from the TPN to avoid precipitation Obtain BMP, magnesium, and Phos daily x 3days and then at least twice weekly Obtain LFT and TGLY weekly I have monitored the TPN therapy, including the labs, and have communicated any modifications with the primary medical/surgical team. Continue current TPN formula and lipid regimen as above. I have communicated the TPN plan with the IV room. Thank you, Db Kline, PharmD Candidate 2024 Preceptor - Magalie SparksD [1] Patient Active Problem List Diagnosis Anxiety and depression COPD (chronic obstructive pulmonary disease) ([facility] [place]) CAD, multiple vessel NSTEMI (non-ST elevated myocardial infarction) ([facility] [place]) GERD (gastroesophageal reflux disease) Leukocytosis Hyperlipidemia THOM (obstructive sleep apnea) S/P CABG x 4 Hypertension Cardiac volume overload Hypoglycemia Nausea with vomiting Acute blood loss anemia (ABLA) Gastric perforation (CMS/HCC) On total parenteral nutrition (TPN) Ileus ([facility]/HCC) Electrolyte abnormality Colon perforation ([facility]/HCC) Post-op pain Delirium [2] Past Medical History: Diagnosis Date Anxiety COPD (chronic obstructive pulmonary disease) (CMS/HCC) 05/01/2024 Continue Duo nebs q6 SPO2 goal >88% Depression GERD (gastroesophageal reflux disease) 05/01/2024 Continue Protonix 40 mg daily Hyperkalemia 05/06/2024 Now resolved, pt with hypokalemia requiring replacement On mechanically assisted ventilation (CMS/HCC) 05/06/2024 Arrived to ICU intubated 05/07 extubated to 4LNC 05/08 resolved Tobacco use 05/01/2024 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 Complicates all aspects of care and recovery Tremor 05/01/2024 Continue home primidone 50 mg BID [3] Past Surgical History: Procedure Laterality Date ABDOMINAL ADHESION SURGERY SECTION, CLASSIC CHOLECYSTECTOMY CORONARY ARTERY BYPASS GRAFT 05/06/2024 Coronary artery bypass grafting x4 with CHOWDARY to LAD as a free graft, reverse saphenous vein graft sequential to ramus intermedius artery then to obtuse marginal artery 1, reverse saphenous vein graftto PDA.(Reda) HAND SURGERY Right Tendon repair SHOULDER SURGERY Cosigned by Uriah Sherman, PharmD at 06/01/2024 1:14 PM EDT Associated attestation - Uriah Sherman, PharmD - 06/01/2024 1:14 PM EDT I have assessed the patient with the student teaching coordinator and agree with the plan as ordered and documented. Micheal Sherman, Delphine Trauma/Emergency General Surgery * Consults - Gretchen Brothers, MINA - 05/31/2024 3:38 PM EDT Adult Nutrition Evaluation Note Rere Hunter 53 y.o. female CSN: [id number] Room/Bed 117/117A Nutrition evaluation type: follow-up Reason for evaluation: Hospital course: 53 y.o. female presents for CABG evaluation. OR on 05/06. 05/16: NPO x 5 days d/t ileus. Trial of clamping NGT. SGE is following. Pt has been intermittently confused. 05/18: Patient transferred back to ICU yesterday given worsening abdominal exam, electrolyte abnormalities, and overall care requirements. Having fevers, tachycardia. General surgery and GI acutely involved for worsening bowel exam with CT findings concerning for possible gastric perforation. 05/21: Currently receiving TPN. NGT to suction. 05/29: S/P Exploratory laparotomy, extensive lysis of adhesions, left colectomy(performed by colorectal surgery), end colostomy creation, abdominal washout, application of negative pressure wound VAC therapy to skin and soft tissues on 05/23 d/t colon perforation. Continues on TPN, decreased to half rate. Po diet initiated and advanced on 05/28; calorie count started. Past medical/ surgical history: Medical History[1] Surgical History[2] Social history: Additional comments: Minimal PO intake recently, diet advancing per protocol. 05/11: Pt reports appetite improving, trying to eat. Pt denied n/v/d/c, denied chewing/swallowing difficulty. Pt denied involuntary wt changes. No feeding tube present. 05/31: Nurse providing care at time of visit Vitals and Basic Assessment: BP: 117/83 Temp: 36.7 ??C (98.1 ??F) Invasive Ventilator Initiated (ETT/Trach Only): Yes Oxygen Therapy: None (Room air) O2 Delivery Method: Nasal cannula [place] Coma Scale Score: 15 Shaan Scale Score: 19 Joshua/Cubbin Pressure Risk Score: 45 Most Recent BM Date: 05/30/24 GI Symptoms: Nausea Edema: Generalized Colostomy output: 180 mL Wound vac in place Allergies: NKFA Medications: acetaminophen, 500 mg, Oral, q6h LINDA aspirin, 81 mg, Oral, Daily buPROPion, 150 mg, Oral, BID FOLLOWED BY buPROPion XL, 300 mg, Oral, Daily citalopram, 40 mg, Oral, Daily fat emulsion fish/plant based, 250 mL, Intravenous, Every other day heparin (porcine), 5,000 Units, Subcutaneous, q8h lidocaine, 2 patch, Apply externally, q24h melatonin, 6 mg, Oral, Nightly methocarbamol, 500 mg, Oral, TID metoprolol tartrate, 25 mg, Oral, BID pantoprazole, 40 mg, Oral, Daily potassium chloride, 40 mEq, Oral, Once primidone, 50 mg, Oral, BID rosuvastatin, 40 mg, Oral, Nightly sodium chloride, 10 mL, Intravenous, q12h PRN medications: benzocaine-menthol, calcium carbonate, hydrALAZINE, HYDROmorphone OR HYDROmorphone, ipratropium-albuterol, [DISCONTINUED] ondansetron ODT OR ondansetron OR [DISCONTINUED]ondansetron, oxyCODONE OR oxyCODONE, phenol, simethicone, sodium chloride, sodium chloride Meds were reviewed: Yes Labs: Lab Results Component Value Date GLUCOSE 107 (H) 05/31/2024 CALCIUM 8.3 (L) 05/31/2024 NA 129 (L) 05/31/2024 K 3.7 05/31/2024 CO2 25 05/31/2024 CL 95 (L) 05/31/2024 BUN 13 05/31/2024 CREATININE 0.52 (L) 05/31/2024 PHOS 4.4 05/31/2024 MG 2.0 05/31/2024 HGBA1C 5.3 05/01/2024 Anthropometrics: Height: 154.9 cm (5' 0.98 ) Weight: 55.4 kg (122 lb 2.2 oz) BMI (Calculated): 23.09 Weight Evaluation: Overweight (BMI 25-29.9) [place] Body Weight (kg): 47.7 Percent [place] Body Weight: 116 Adjusted Body Weight (kg): 50.9 Wt Readings from Last 10 Encounters: 05/31/24 55.4 kg (122 lb 2.2 oz) 06/28/23 59 kg (130 lb) 04/26/23 62.6 kg (138 lb) 01/18/23 61.7 kg (136 lb) Estimated Needs: Kcal/ K-35 Kcal Provided: 8313-3420 Kcal Needs Based On: Adjusted weight Gm Protein/ Kg : 1.5 Protein Provided: 76 Protein Needs Based On: Adjusted weight Metabolic Cart Study Results: Current Nutrition Intake: Diet Order: Adult Diet Diet Texture: Regular Adult Carbohydrate Restriction: Consistent CHO 2 (3352-6224 Channing, 80 g/meal) Fat Restriction: Cardiac Other Restrictions: Other (Comment) (GI ostomy) Percent Meals Eaten (%): See Kcal count HALF-RATE TPN: DEXTROSE: 15% (144 g/day CHO) AMINO ACIDS: 5% (48 g/day) Cl:A 1:3, K @ 30 mEq/L @ 40 ml/hr, with 30mg/day thiamine, MVI, and Trace elements Every other day 250ml 20% SMOF lipids Calorie Count Results: 05/31: Calorie count results: 3-day ave = ~206kcal; 6g protein. Patient meeting ~12-13%kcal; 8% protein needs. RD to follow Garrett Ruiz DTR Diet Experience and Nutrition History: Diet Education Provided: Will monitor Pertinent home medications: reviewed Gnosticist needs: Nutrition Focused Physical Exam: Physical exam performed on (date): 05/11 Temples (muscles): None Clavicle (muscle): None Shoulder (muscle): None Interosseous (muscle): None Thigh (muscle): None Calf (muscle): Mild Orbital (fat): None Triceps (fat): None Assessment of Malnutrition: Malnutrition Identified: No Nutrition Problem: Increased nutrient needs protein, calories related to s/p CABG/exp lap as evidenced by increased metabolic demands of surgical wound healing. Status of Nutrition Diagnosis: Ongoing Inadequate energy intake related to ileus/possible gastric perforation -> colonic perforation asevidenced by NPO x 7 days -> TPN initiated -> TPN + po diet Status of Nutrition Diagnosis: Improvement Nutrition Interventions and Recommendations: - TPN per pharmacy. - Continue PO diet as tolerated. - Continue Boost VHC once daily + Roque BID. -Placing consult for ostomy diet education Nutrition Monitoring and Goals: - Will monitor PO intake, weight, skin, labs, nutrition status - Improved PO intake - monitor elytes (ongoing) - monitor ostomy output - Pt will maintain body weight throughout hospital admission (ongoing) - ostomy diet education prior to d/c Acuity Level: 5 Gretchen Brothers, RD, LD [1] Past Medical History: Diagnosis Date Anxiety COPD (chronic obstructive pulmonary disease) ([facility] [place]) 05/01/2024 Continue Duo nebs q6 SPO2 goal >88% Depression GERD (gastroesophageal reflux disease) 05/01/2024 Continue Protonix 40 mg daily Hyperkalemia 05/06/2024 Now resolved, pt with hypokalemia requiring replacement On mechanically assisted ventilation ([facility] [place]) 05/06/2024 Arrived to ICU intubated 05/07 extubated to 4LNC 05/08 resolved Tobacco use 05/01/2024 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 Complicates all aspects of care and recovery Tremor 05/01/2024 Continue home primidone 50 mg BID [2] Past Surgical History: Procedure Laterality Date ABDOMINAL ADHESION SURGERY SECTION, CLASSIC CHOLECYSTECTOMY CORONARY ARTERY BYPASS GRAFT 05/06/2024 Coronary artery bypass grafting x4 with CHOWDARY to LAD as a free graft, reverse saphenous vein graft sequential to ramus intermedius artery then to obtuse marginal artery 1, reverse saphenous vein graftto PDA.(Reda) HAND SURGERY Right Tendon repair SHOULDER SURGERY * Progress Notes - Lorna Bejarano N - 05/31/2024 12:28 PM EDT Physical Therapy Treatment Patient Name: Rere Hunter Today's Date: 05/31/2024 PT Discharge Recommendations: LTACH Equipment Recommended: Defer to facility Subjective RN and patient agreed to physical therapy services this date. She reported I'm okay... I slept last night. Participants in Care Family/Caregiver Present: No Tester Equipment: Not Applicable Presentation Oxygen Therapy: None (Room air) Lines and Tubes: Closed/Suction Drain 1 Inferior;Left Abdomen Bulb 19 Fr. (Active) Closed/Suction Drain 1 Left Abdomen Bulb 19 Fr. (Active) Colostomy Transverse RUQ (Active) Female External Urinary Catheter 05/30/241999 (Active) PICC Double Lumen 05/19/24 Left Basilic vein (Active) Negative Pressure Wound Therapy Abdomen Lower;Upper;Mid (Active) Peripheral IV 05/12/24 Anterior;Left Forearm (Active) Peripheral IV 05/23/24 Left Hand (Active) Pulse oximeter, Telemetry Pre-Session: Supine, Head of bed elevated, Lines intact Post-Session: Sitting in chair, Chair alarm, Lines intact, RN notified, Call light in reach Post-Session Comments: RN present. Patient positioned for comfort and pressure relief following session with needs in reach. RN informed of session and patient's reports of discomfort in vaginal areawith Purewick removal and at attempt to place following session. Precautions Medical Precautions: Fall precautions, Sternal Objective Pain Patient denied having any pain. Delirium Screening Urban Agitation Sedation Scale (RASS): Alert and calm Confusion Assessment Method-ICU (CAM-ICU/PCAM-ICU) Feature 3: Altered Level of Consciousness: Negative Therapeutic Activity (43 minutes) Patient participated in therapeutic activities including bed mobility, edge of bed sitting, functional transfers, ambulation, and balance to improve strength, balance, endurance and independence withfunctional mobility. Verbal, visual, and tactile cues provided by therapist throughout session for sequencing, self pacing, fall prevention, pursed lip breathing, adherence to sternal precautions andproper body mechanics to improve safety and efficiency with functional mobility. Review provided onsternal precautions prior to mobility. Patient request to use the restroom with extra time required for use. Bed Mobility Bed Mobility Exam: Scooting/Bridging Level of Harmon: Maximum assist (25% patient's effort) (Seated scooting hips towards EOB withuse of draw sheet.) Physical/Nonphysical Assist: Verbal Cues, Nonverbal cues (demo/gestures) Bed Mobility Exam: Supine to Sit Level of Harmon: Moderate assist (50% patient's effort) (For trunk upright.) Physical/Nonphysical Assist: Verbal Cues, Nonverbal cues (demo/gestures), Additional assist utilized for safety Verbal and tactile cues provided to roll towards her side, sequence BLEs to the edge of bed, and bring torso upright with pillow splint to achieve bed mobility to adhere to sternal precautions. Verbal cues on seated scooting hips towards edge of bed for improved balance. Assistance provided to complete bed mobility. Transfers Transfer Exam: Sit to stand Level of Harmon: Contact guard Physical/Nonphysical Assist: Verbal Cues, Nonverbal cues (demo/gestures), Set-up required, 1 person+ 1 person to manage equipment Assistive Device: Rollator Transfer Exam: Stand to Sit Level of Harmon: Contact guard Physical/Nonphysical Assist: Verbal Cues, Nonverbal cues (demo/gestures), 1 person + 1 person to manage equipment, Set-up required Toilet Transfer Level of Harmon: Minimum assist (75% patient's effort) Physical/Nonphysical Assist: Verbal Cues, Nonverbal cues (demo/gestures), 1 person + 1 person to manage equipment, Set-up required Type of Transfer: Ambulation, To toilet Assistive Device: Rollator Verbal and tactile cues provided on proper hand and foot placement to adhere to sternal precautionsand locking of brakes for safety with sit<=>stand transfers. Verbal cues provided to feel surface behind BLEs, bring Rollator back to surface, and ease into sitting for good eccentric control during stand to sit transfers onto surfaces for improved safety. She completed 3 sit to stand transfers- 1x from EOB, 1x from toilet, and 1x from Rollator. Ambulation Device: Rollator Assistance: Contact guard assist, Additional assist needed for line management Distance : 20' to the bathroom + 50' followed by standing rest break + 50' followed by standing rest break + 100' followed by seated rest break + 100' Ambulation Comments: Patient demonstrated a slow pace, decreased step length, and decreased foot clearance. Education provided on self pacing/rest breaks for energy conservation with returned demonstration. Balance Static Sitting Balance Static Sitting-Balance Support: Right upper extremity support, Left upper extremity support, Feet supported Static Sitting-Level of Assistance: Contact guard Dynamic Sitting Balance Dynamic Sitting-Balance Support: Right upper extremity support, Left upper extremity support, Feet supported Dynamic Sitting-Balance: Anterior/Posterior weight shifts Level of Assistance: Contact guard Static Standing Balance Static Standing-Balance Support: Right upper extremity support, Left upper extremity support (Through Rollator) Static Standing-Level of Assistance: Contact guard Dynamic Standing Balance Dynamic Standing-Balance Support: Right upper extremity support, Left upper extremity support (Through Rollator) Dynamic Standing-Balance: Anterior/Posterior weight shifts Dynamic Standing Level of Assistance: Contact guard Assessment Patient tolerated session without adverse reaction. Patient is improving, as noted by increase in walking distance ambulating a max distance of 100' before requiring a rest break during this PT treatment compared to last PT treatment. Patient was anxious and emotional at times during session with comfort and active listening provided. Patient has the following impairments: impaired activity tolerance and gross functional weakness, which is limiting the patient from performing independent functional mobility. Will progress mobility as appropriate. Patient would continue to benefit from skilledPT services to improve endurance and strength to promote independence with functional mobility, in order to maximize potential level of function. PT Recommendations Discharge Destination: LTACH Discharge Equipment: Defer to facility Plan Continue with PT POC. PT Goals PT GOAL DETAILS Goal Established Date Time Frame Goal Status PT Goal 1: Pt will perform supine<>sit transfers with CGA and HOB flat, no use of bed rails. 05/07/24 2 weeks Goal not met, Goal ongoing PT Goal 2: Pt will perform sit to stand and bed to chair transfers with Stefan and LRD. 05/07/24 2 weeks Goal not met, Goal ongoing PT Goal 3: Pt will ambulate >600ft with Stefan and LRD. 05/07/24 2 weeks Goal not met, Goal ongoing PT Goal 4: Pt will safely ascend/descend 3 steps with SBA, one handrail. 05/07/24 2 weeks Goal not met, Goal ongoing Written by Lorna Bejarano on 05/31/24 at 1:03 PM. * Progress Notes - Keisha Sabillon - 05/31/2024 12:27 PM EDT Occupational Therapy Treatment Patient Name: Rere Hunter Today's Date: 05/31/2024 OT Discharge Recommendations: LTACH Equipment Recommended: Defer to facility Subjective Pt agreeable to participate in OT session. Participants in Care Family/Caregiver Present: No Family/Caregiver: Adult Son Tester Equipment: Not Applicable Presentation Oxygen Therapy: None (Room air) Lines and Tubes: Closed/Suction Drain 1 Inferior;Left Abdomen Bulb 19 Fr. (Active) Closed/Suction Drain 1 Left Abdomen Bulb 19 Fr. (Active) Colostomy Transverse RUQ (Active) Female External Urinary Catheter 05/30/241999 (Active) PICC Double Lumen 05/19/24 Left Basilic vein (Active) Negative Pressure Wound Therapy Abdomen Lower;Upper;Mid (Active) Peripheral IV 05/12/24 Anterior;Left Forearm (Active) Peripheral IV 05/23/24 Left Hand (Active) Pre-Session: Supine, Head of bed elevated, Lines intact Pre-Session Comments: RN agreeable to session. Post-Session: Sitting in chair, Chair alarm, Lines intact, RN notified, Call light in reach Post-Session Comments: RN present, All needs met. Precautions Medical Precautions: Fall precautions, Sternal Objective Pain Pt reporting pain/burning in vaginal area, pt requesting therapy to not quang purewick at end of session, RN notified. RN with pt at close of session. Delirium Screening Urban Agitation Sedation Scale (RASS): Alert and calm Confusion Assessment Method-ICU (CAM-ICU/PCAM-ICU) Feature 3: Altered Level of Consciousness: Negative Cognition Cognition Overall Cognitive Status: Within Functional Limits Arousal/Alertness: Appropriate responses to stimuli Mood/Behavior: Anxious, Lethargic, Flat affect Single Step Commands: With increased time, With repetition, Consistently Multi-Step Commands: With increased time, With repetition, Consistently Method of Communication: Verbal Bed Mobility Bed Mobility Exam: Scooting/Bridging Level of Harmon: Maximum assist (25% patient's effort) (Seated scooting hips towards EOB withuse of draw sheet.) Physical/Nonphysical Assist: Verbal Cues, Nonverbal cues (demo/gestures) Assistive Device: Other (draw sheet) Bed Mobility Exam: Supine to Sit Level of Harmon: Moderate assist (50% patient's effort) (For trunk upright.) Physical/Nonphysical Assist: Verbal Cues, Nonverbal cues (demo/gestures), Additional assist utilized for safety Assistive Device: Other (draw sheet) Transfers Transfer Exam: Sit to stand Level of Harmon: Contact guard Physical/Nonphysical Assist: Verbal Cues, Nonverbal cues (demo/gestures), Set-up required, 1 person+ 1 person to manage equipment Assistive Device: Rollator Transfer Exam: Stand to Sit Level of Harmon: Contact guard Physical/Nonphysical Assist: Verbal Cues, Nonverbal cues (demo/gestures), 1 person + 1 person to manage equipment, Set-up required Assistive Device: Hand held assist Toilet Transfer Level of Harmon: Minimum assist (75% patient's effort) Physical/Nonphysical Assist: Verbal Cues, Nonverbal cues (demo/gestures), 1 person + 1 person to manage equipment Type of Transfer: Ambulation, To toilet Assistive Device: Rollator Self-Care Interventions Self Care/Home Management (ADLs) Time Entry: 42 Pt actively participated in self-care interventions this date with an emphasis on functional mobility, endurance, and ADL retraining. Pt engaged in bed mobility, functional transfers, toilet tasks, and household distance ambulation ADLs to assess potential performance skill deficits impeding occupational independence. Pt benefited from skilled occupational therapy interventions including: Monitoring of vitals to ensure activity tolerance (Vitals remained WFL throughout session) MIN verbal and tactile cues to facilitate improved body mechanics and safety with AD use during functional tasks Provision of increased time frames to support optimal level of pt participation Task/activity modification with grading as needed to achieve safety while also providing appropriate functional challenge Skilled organization and management of medical lines/tubes to reduce fall risk with mobility aspects of ADLs Environmental set-up to ensure safety and accessibility to all needed areas of treatment space Grooming Grooming Level of Assistance: Setup, SBA Grooming Where Assessed: Chair level Grooming Interventions: Pt unable to complete grooming routine at baseline level of standing. Therapist modified task to supported sitting at chair level to support highest level of independence withgrooming tasks within current level of activity tolerance, supporting increased volitional effort and locus of control. Pt completed simple face washing task and hair combing with SBA and set-up for materials. Lower Extremity Dressing Sock Level of Assistance: Dependent LE Dressing Where Assessed: Bed level LE Dressing Interventions: Pt requiring total assist to quang bilateral socks in preparation for OOBADL engagement 2/2 decreased unsupported sitting balance. Toileting Toileting Level of Assistance: Minimum assistance, Moderate assistance Where Assessed: Toilet Toileting Interventions: Pt performed functional mobility to bathroom in preparation for toileting.Pt required CGA + additional assist for line/equipment management with rollator. Pt requiring min assist for functional toilet transfer on/off toilet and mod assist for toilet tasks (jacey-care and clothing management). Pt requiring CGA to maintain standing balance at toilet for therapist to assist with jacey-care. Noted, pt additionally requiring total assist for purewick management this date. Health Management Health Management interventions: Therapist facilitated functional bed mobility in preparation for OOB ADL engagement. Pt completed supine>sit with mod assist x 2 for trunk control and BLE management. Pt requiring max assist x 2 for anterior scooting to EOB. Pt requiring min-mod verbal cues to adhere to sternal precautions this date. Increased time, multi-modal cues, environmental set-up, standing and seated rest breaks, and positioning utilized throughout session to facilitate optimal pt performance in therapeutic tasks. Household/Community Re-entry: Patient challenged to perform functional mobility in hallway to address functional endurance, environmental navigation, and prepare patient for community re-entry and navigate household distances. Pt navigating through doorways, along straight paths, around turns, and around large obstacles with CGA using rollator + additonal assist for line/equipment management. Pt requiring 2 standing rest breaks and one seated rest break to navigate functional mobility distancesthis date. Therapist provided min-mod verbal cues for AE use, safety techniques, sequencing, postural control, pacing, and weight shifting to improve dynamic balance and safety awareness. Assessment On this date, pt demonstrated functional improvement during OT session, with ability to engage in ADL preparatory routines with CGA-max assist x 2, use of assistive devices/adaptive equipment (rollator), increased time, min-mod cueing, and rest breaks. Pt remains limited by symptoms consistent withanxiety, poor functional endurance, mild confusion, imbalance and decreased activity tolerance. This negatively impacts safety and independence with self-care execution/IADL's. With this in mind, OT will continue to follow while hospitalized but pt is currently most appropriate for LTACH upon discharge 2/2 TPN requirements. While pt remains hospitalized, OT will provide skilled therapy services for the purpose of improving functional status, decreasing caregiver level of burden, and increasing quality of life. OT Recommendations Discharge Destination: LTACH Discharge Equipment: Defer to facility Plan Continue with established OT plan of care 2-5x/week to progress towards functional OT goals. Goals OT GOAL DETAILS Goal Established Date Time Frame Goal Status OT Goal 1: Pt will perform functional toilet transfer including entering/exiting bathroom with mod I using DME as needed. 05/07/24 2 weeks Goal not met, Goal ongoing OT Goal 2: Pt will perform three consecutive grooming activities standing at the sink with mod I using DME as needed. 05/07/24 2 weeks Goal not met, Goal ongoing OT Goal 3: Pt will perform three consecutive LB dressing activities in sitting/standing with mod I using DME/AE as needed. 05/07/24 2 weeks Goal not met, Goal ongoing OT Goal 4: Pt will verbalize/demonstrate sternal precautions with 100% accuracy in order to safely participate in her ADL routine. 05/07/24 2 weeks Goal not met, Goal ongoing Written by Keisha Sabillon on 05/31/24 at 1:15 PM. * Consults - Garrett Ruiz - 05/31/2024 11:14 AM EDTAssociated Order(s): IP CONSULT TO NUTRITION SERVICES 05/28: Calorie count consult received. Sign hung on patient door in progress 05/28 - 05/30 RN: Please document percent of all PO food, drink, and supplement intake for the active dates in Epic under the I/O-Calorie Count section in the flow sheet. If no PO food consumed for a particular meal, please document 0% of meal . Estimated Needs: copied from RD note 05/29 Kcal/ K-35 Kcal Provided: 3350-6959 Kcal Needs Based On: Adjusted weight Gm Protein/ Kg : 1.5 Protein Provided: 76 Protein Needs Based On: Adjusted weight 05/31: Calorie count results: 3-day ave = ~206kcal; 6g protein. Patient meeting ~12-13%kcal; 8% protein needs. RD to follow Garrett Ruiz DTR * Progress Notes - Db Kline - 05/31/2024 11:06 AM EDT Pharmacist TPN Progress Note Patient: Rere Hunter Age: 53 y.o. Admission Date: [id number] Subjective/Objective/Hospital Course: 53 y.o. female with PMHx of CAD, HTN, COPD, GERD, tremor, anxiety, depression, and tobacco use, who is currently hospitalized under the care of the CVT surgery team after having a CABG on 05/06/24. Since surgery she has developed nausea, vomiting, and abdominal pain with imaging findings consistent with ileus. Patient has had inadequate energy intake likely related to ileus and has been NPO x [address] 05/20 showed intraabdominal fluid adjacent to stomach concerning for possible perforation. UGI with no perforartion. TPN consult for ileus + possible leak. 05/17: TPN consult placed 05/19: TPN initiated 05/23: CT overnight with PO contrast more convincing for colonic perforation instead of stomach perf. OR with general surgery for left hemicolectomy and colostomy creation. 05/25: CLD ordered late afternoon 05/28: PO diet ordered Problem List[1] Medical History[2] Surgical History[3] Allergies: Latex and Oxycodone LABS: Results from last 7 days Lab Units 05/31/24 0250 05/30/24 0513 05/29/24 0700 05/29/24 0535 05/28/24 0047 05/27/24 0454 05/26/24 0327 05/25/24 0245 GLUCOSE mg/dL 107* 112* 104* 600* 106* 127* 122* 126* BUN mg/dL 13 14 13 12 15 16 17 20 CREATININE mg/dL 0.52* 0.52* 0.58* 0.59* 0.66 0.71 0.73 0.91 SODIUM mmol/L 129* 131* 132* 128* 137 134* 136 138 POTASSIUM mmol/L 3.7 3.7 4.0 5.1* 4.3 4.1 4.5 5.0* CHLORIDE mmol/L 95* 96* 97 95* 102 99 104 107 CO2 mmol/L 25 24 25 22 26 24 25 CALCIUM mg/dL 8.3* 8.0* 8.3* 8.1* 8.2* 8.4* 7.8* 7.7* PHOSPHORUS mg/dL 4.4 4.3 4.1 5.6* 3.8 4.7* 4.0 3.5 MAGNESIUM mg/dL 2.0 1.9 -- 2.1 1.9 2.1 2.1 2.4 Results from last 7 days Lab Units 05/31/24 0250 05/30/24 0513 05/29/24 0535 05/28/24 0047 05/27/24 0454 05/26/24 0327 05/25/24 2032 05/25/24 1355 05/25/24 0811 WBC 10*3/uL 26.51* 23.21* 22.52* 25.00* 30.77* 34.71* -- -- 41.23* HEMOGLOBIN g/dL 10.2* 9.7* 9.3* 9.7* 9.5* 7.1* 7.2* < > 7.2* HEMATOCRIT % 31.0* 29.7* 28.9* 30.1* 29.8* 22.4* 23.1* < > 22.4* PLATELETS 10*3/uL 670* 603* 528* 442* 413* 378* -- -- 373* < > = values in this interval not displayed. Results from last 7 days Lab Units 05/31/24 0250 05/30/24 0513 05/29/24 0535 05/28/24 0047 05/27/24 0454 05/26/24 0327 05/25/24 0245 ALBUMIN g/dL 2.5* 2.3* 2.0* 2.1* 2.1* 2.0* 1.9* Nutrition Labs: Lab Results Component Value Date TRIG 76 05/19/2024 BILITOT 0.9 05/23/2024 ALBUMIN 2.5 (L) 05/31/2024 PREALBUMIN 6.5 (L) 05/09/2024 HGBA1C 5.3 05/01/2024 CRP 225.3 (H) 05/17/2024 IRON 25 (L) 05/14/2024 TIBC 156 (L) 05/14/2024 Microbiology Results Procedure Component Value Units Date/Time Blood Culture (Aerobic/Anaerobet Set) [[id number]] Collected: 05/23/24 1020 Order Status: Completed Specimen: Blood, Venous Updated: 05/24/24 1101 Culture No growth at day 1 Fungal Blood Culture [[id number]] Collected: 05/17/241812 Order Status: Completed Specimen: Blood, Venous Updated: 05/24/24 0638 Culture No Fungal Growth at 1 Week AFB Blood Culture [[id number]] Collected: 05/17/241812 Order Status: Completed Specimen: Blood, Venous Updated: 05/24/2438 AFB Culture No Mycobacterial Growth at 1 Week Vitals: Visit Vitals BP (!) 140/83 (BP Location: Right arm, Patient Position: Lying) Pulse 94 Temp 37 ??C (98.6 ??F) (Oral) Resp 21 [place] Coma Scale Score: 15 [place] Scale Score: 19 Oxygen Therapy: None (Room air) Skin Integrity: Bruising, Other (Comment) (See LDA) Edema: Generalized Wt Readings from Last 3 Encounters: 05/31/24 55.4 kg (122 lb 2.2 oz) 06/28/23 59 kg (130 lb) 04/26/23 62.6 kg (138 lb) Current Diet Order: Dietary Orders (From admission, onward) Start Ordered 05/29/24 1449 Oral nutrition supplements (Adult Diet Panel) Until discontinued Question Answer Comment Supplement frequency: Breakfast Supplement frequency: Lunch Supplement frequency: Dinner Breakfast supplement: Roque Fruit Punch Quantity for Breakfast of Roque Fruit Punch Packet One Lunch supplement: Boost Very High Calorie Vanilla Quantity for Lunch of Boost Very High Calorie - Vanilla One Dinner supplement: Roque Fruit Punch Quantity for Dinner of Roque Fruit Punch Packet One 05/29/24 1448 05/29/24 1448 Adult diet Diet texture: Regular; Carbohydrate restriction: Consistent Carb 2 (80 gm max/meal); Fat restriction: Cardiac; GI: Ostomy (Adult Diet Panel) Diet effective now References: IDDSI Diet Texture Guide Question Answer Comment Diet texture Regular Carbohydrate restriction: Consistent Carb 2 (80 gm max/meal) Fat restriction: Cardiac GI Ostomy 05/29/24 1447 Current Medications acetaminophen, 500 mg, Oral, q6h LINDA aspirin, 81 mg, Oral, Daily buPROPion, 150 mg, Oral, BID FOLLOWED BY buPROPion XL, 300 mg, Oral, Daily citalopram, 40 mg, Oral, Daily fat emulsion fish/plant based, 250 mL, Intravenous, Every other day heparin (porcine), 5,000 Units, Subcutaneous, q8h lidocaine, 2 patch, Apply externally, q24h melatonin, 6 mg, Oral, Nightly methocarbamol, 500 mg, Oral, TID metoprolol tartrate, 25 mg, Oral, BID pantoprazole, 40 mg, Oral, Daily potassium chloride, 20 mEq, Oral, Once primidone, 50 mg, Oral, BID rosuvastatin, 40 mg, Oral, Nightly sodium chloride, 10 mL, Intravenous, q12h Adult 2-in-1 TPN, 40 mL/hr, Last Rate: 40 mL/hr (05/30/242123) Current Anthropometrics: Height: 154.9 cm (5' 0.98 ) Weight: 61.1 kg (134 lb 12.8 oz) [place] body weight: 47.8 kg (105 lb 4.8 oz) Adjusted ideal body weight: 52.8 kg (116 lb 5.7 oz) (126.25%) of IBW Body mass index is 25.13 kg/m??. Adjusted wt: 50.9 kg (if over 125% of IBW) CENTRAL IV Access: PICC (05/18/24) Estimated Nutritional Needs: HBE: 1153 Stress Factor: 1.2-1.4 Total Calories/day: 5184-8534 Protein (amino acids): 1.3-1.6 grams/kg Protein (Amino acids): 66-81 grams/day Measured Energy Needs: Respiratory Quotient: 05/31/2024 Plan/Recommendation: Labs reviewed. Continue half-rate TPN. Cl:A ratio to 1:1. Will continue to monitor. HALF-RATE TPN: DEXTROSE: 15% (144 g/day CHO) AMINO ACIDS: 5% (48 g/day) K @ 30 mEq/L @ 40 ml/hr, with 30mg/day thiamine, MVI, and Trace elements Every other day 250ml 20% SMOF lipids Replace electrolytes outside of TPN Calcium and/or Phosphorus supplements MUST be in a separate line from the TPN to avoid precipitation Obtain BMP, magnesium, and Phos daily x 3days and then at least twice weekly Obtain LFT and TGLY weekly I have monitored the TPN therapy, including the labs, and have communicated any modifications with the primary medical/surgical team. Continue current TPN formula and lipid regimen as above. I have communicated the TPN plan with the IV room. Thank you, Db Kline, PharmD Candidate 2024 Preceptor - Moni Méndez, MagalieD [1] Patient Active Problem List Diagnosis Anxiety and depression COPD (chronic obstructive pulmonary disease) ([facility] [place]) CAD, multiple vessel NSTEMI (non-ST elevated myocardial infarction) ([facility] [place]) GERD (gastroesophageal reflux disease) Leukocytosis Hyperlipidemia THOM (obstructive sleep apnea) S/P CABG x 4 Hypertension Cardiac volume overload Hypoglycemia Nausea with vomiting Acute blood loss anemia (ABLA) Gastric perforation ([facility] [place]) On total parenteral nutrition (TPN) Ileus ([facility] [place]) Electrolyte abnormality Colon perforation ([facility] [place]) Post-op pain Delirium [2] Past Medical History: Diagnosis Date Anxiety COPD (chronic obstructive pulmonary disease) ([facility] [place]) 05/01/2024 Continue Duo nebs q6 SPO2 goal >88% Depression GERD (gastroesophageal reflux disease) 05/01/2024 Continue Protonix 40 mg daily Hyperkalemia 05/06/2024 Now resolved, pt with hypokalemia requiring replacement On mechanically assisted ventilation ([facility] [place]) 05/06/2024 Arrived to ICU intubated 05/07 extubated to 4LNC 05/08 resolved Tobacco use 05/01/2024 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 Complicates all aspects of care and recovery Tremor 05/01/2024 Continue home primidone 50 mg BID [3] Past Surgical History: Procedure Laterality Date ABDOMINAL ADHESION SURGERY SECTION, CLASSIC CHOLECYSTECTOMY CORONARY ARTERY BYPASS GRAFT 05/06/2024 Coronary artery bypass grafting x4 with CHOWDARY to LAD as a free graft, reverse saphenous vein graft sequential to ramus intermedius artery then to obtuse marginal artery 1, reverse saphenous vein graftto PDA.(Reda) HAND SURGERY Right Tendon repair SHOULDER SURGERY Cosigned by Moni Méndez PharmD at 05/31/2024 2:56 PM EDT Associated attestation - Moni Méndez PharmD - 05/31/2024 2:56 PM EDT I have reviewed the students assessment and plan and agree with the below statements * Progress Notes - Heather Ram - 05/31/2024 8:38 AM EDT Case Management Adult Progress Note Rere Hunter 53 y.o. female CSN: [id number] Admission: 05/01/2024 11:01 PM Primary Problem: CAD, multiple vessel Anticipated Discharge Date: TBD Has Discharge Plans Changed? No Housing Circumstances: Not Applicable Housing Circumstances Action Taken: Other N/A Additional Comments SW spoke with primary team this date re: pt's plan of care. According to primary team, this pt is not medically stable for DC this date and is not anticipated to be stable within 72 hrs. Pt currentlyon TPN, working towards tolerating regular diet. See medical notes for more detail. Pt currently has LTACH recs. Per PT/OT, these recs are due to pt being on TPN, which acute will not accept due to expense. SW previously referred pt to [facility] and updated liaison Prema this AM re: pt's progress. Prema continuing to follow. No further SW concerns identified at this time. SW will monitor pt's progress and will follow up with DC planning and needs as appropriate. NAYA Albarran * Progress Notes - Shola Sheridan, AUTOMOTIVE PORTER - 05/31/2024 8:05 AM EDT CVT Progress Note 24 Hour Events/HPI: Tx out of ICU. No acute events or issues overnight. Patient remained hemodynamically stable, afebrile, and rested comfortably overnight. Pt reports increased abdominal pain/tightness s/p wound vac change yd. Tolerating PO diet. Reports increase in PO intake this AM. Review of Systems: A complete ROS was obtained. All were negative except as noted in HPI. Objective: All laboratory data, images, tracings, and vital sign data for past 24 hours are personally reviewed unless otherwise noted. @PATIENTWT@ , Weight: 61.1 kg (134 lb 12.8 oz) , Ht Readings from Last 1 Encounters: 05/11/24 1.549 m (5' 0.98 ) , Body mass index is 23.09 kg/m??. VITALS (last 24h) Temp: [36.6 ??C (97.9 ??F)-37.1 ??C (98.7 ??F)] 37 ??C (98.6 ??F) Heart Rate: [85-105] 94 Resp: [18-28] 21 BP: (128-140)/(76-88) 140/83 Visit Vitals BP (!) 140/83 (BP Location: Right arm, Patient Position: Lying) Pulse 94 Temp 37 ??C (98.6 ??F) (Oral) Resp 21 Ht 1.549 m (5' 0.98 ) Wt 55.4 kg (122 lb 2.2 oz) SpO2 94% BMI 23.09 kg/m?? Smoking Status Every Day BSA 1.54 m?? I & O Summary Intake/Output Summary (Last 24 hours) at 05/31/2024 0805 Last data filed at 05/31/2024 0600 Gross per 24 hour Intake 1703.5 ml Output 1280 ml Net 423.5 ml LABS CBC WBC 26.51 (H) Hb 10.2 (L) Plt 670 (H) Hct 31.0 (L) ANC 19.86 (H) INR ??, PTT ??, Anti-Xa ?? BMP Na 129 (L) Cl 95 (L) BUN 13 Glu 107 (H) K 3.7 Co2 25 Cr 0.52 (L) Ca 8.3 (L) iCa ?? Mg 2.0, Phos 4.4 Lactate ?? LFT AST ?? AlkPhos ?? T Prot ?? ALK ?? Bili ?? Alb ?? D.Bili ?? HOURS) MEDICATIONS acetaminophen, 500 mg, Oral, q6h LINDA aspirin, 81 mg, Oral, Daily buPROPion, 150 mg, Oral, BID Followed by buPROPion XL, 300 mg, Oral, Daily citalopram, 40 mg, Oral, Daily fat emulsion fish/plant based, 250 mL, Intravenous, Every other day heparin (porcine), 5,000 Units, Subcutaneous, q8h lidocaine, 2 patch, Apply externally, q24h melatonin, 6 mg, Oral, Nightly methocarbamol, 500 mg, Oral, TID metoprolol tartrate, 25 mg, Oral, BID pantoprazole, 40 mg, Oral, Daily potassium chloride, 40 mEq, Oral, Once primidone, 50 mg, Oral, BID rosuvastatin, 40 mg, Oral, Nightly sodium chloride, 10 mL, Intravenous, q12h Adult 2-in-1 TPN, 40 mL/hr, Last Rate: 40 mL/hr (05/30/242123) PRN medications: benzocaine-menthol, hydrALAZINE, HYDROmorphone OR HYDROmorphone, ipratropium-albuterol, [DISCONTINUED] ondansetron ODT OR ondansetron OR [DISCONTINUED] ondansetron, oxyCODONE OR oxyCODONE, phenol, simethicone, sodium chloride, sodium chloride Physical Exam: GENERAL: 53F. NAD on RA EYES: No scleral icterus or conjunctivitis HENT: Atraumatic, normocephalic, nares patent, mucus membranes moist NECK: Supple, trachea midline RESP/CHEST: Symmetric expansion; non labored. CTA bilaterally. Midsternal incision CDI. Sternum stable. CARD: regular rate and rhythm, normal S1 and S2, no murmur, rub, or gallop, Pedal pulses palpable +2. , no JVD. No edema Extremities: No cyanosis or clubbing. GI: Soft, Nontender, nondistended. BS present and normoactive x 4 quadrants. Midline abd incision with wound vac in place. LENA x 2 to left abd. Colostomy with ostomy bag in place SKIN: No rash. NEURO: AAOx4. Motor intact and no focal deficits PSYCH: Mood and affect congruent and appropriate to situation. Assessment and Plan: CAD, multiple vessel NSTEMI (non-ST elevated myocardial infarction) - Patient presented to OSH on 05/01/24 c/o chest pain - Diagnosed at OSH with elevated troponins of 0.05 to 0.23 to 0.16 LHC reveal mvCAD - S/p CABG x4 with Dr. Austin on 05/06 - continue asa, statin, metoprolol - Routine post cardiac surgery care: sternal precautions x 6 weeks, PT, bowel regimen to prevent constipation and aggressive pulmonary toilet. Anxiety and depression - Continue home bupropion XL 300 mg daily - Continue home citalopram 40 mg daily COPD (chronic obstructive pulmonary disease) - Duo nebs q6 prn - Wean O2 for SPO2 goal >88% GERD (gastroesophageal reflux disease) - 05/07 extubated, no on home PPI dc'd - 05/08 pt denies any GERD symptoms - 05/09 + PPI for reflux - 05/10 docusate, metoclopramide, miralax, senna, simethicone, continue NG to low intermitted, CLD for pt comfort, passing gas - 05/11 as above denies reflux today NG clamp trial - 05/14 PPI per blue surgery rec for blood tinged NG output Leukocytosis - 05/31: WBC 26.51 - afebrile - monitor Hyperlipidemia - Statin THOM (obstructive sleep apnea) - Refusing home CPAP Hypertension - metoprolol Cardiac volume overload - diuresis prn Hypoglycemia - Resolved once TPN started Nausea with vomiting - Advance PO diet as able - prn zofran Acute blood loss anemia (ABLA) - H/H 10.2/31.0 - Monitor and transfuse prn Gastric perforation Colonic perforation Ileus - S/p ex lap with left colon resection with end colostomy with blue surgery on 05/23 On total parenteral nutrition (TPN) - Started on 05/20 - Obtaining PO calorie count. Will DC TPN when able. Electrolyte abnormality - monitor and replace prn Post-op pain - Abdominal tenderness and pain - MMPC Delirium - Delirium precautions Plan: PPI per blue surgery Calorie count Continue TPN until PO intake adequate Wound vac and Drain care per blue surgery Cardiothoracic Surgery [id number] * Procedures - Iman Massey MD - 05/30/2024 3:08 PM EDTAssociated Order(s): Wound Vac Placement Post-Procedure Diagnose(s): Colon perforation (CMS/HCC) Wound Vac Placement Performed by: Iman Massey MD Authorized by: Graciela Nelson MD Consent: Consent obtained: Verbal Consent given by: Patient Risks discussed: Yes Indications: Wound vac replacement Sedation: Sedation type: Anxiolysis (dilaudid) DME Vac: Yes Procedure details: Foam Removed (Pieces): 3 Foam Placed (Pieces): 3 Wound Appearance: Wound with healthy granulation tissue, central portion of incision near umbilicusclosed with sheridan Length (cm): 15 Width (cm): 4 Depth (cm): 1.5 Calc Area (square cm): 60 Foam Applied: Black Polyurethane Foam Therapy: Continuous Pressure (mmHg): 125 Patient tolerance of procedure: Tolerated well, no immediate complications Cosigned by Graciela Nelson MD at 05/30/2024 10:44 PM EDT Associated attestation - Graciela Nelson MD - 05/30/2024 10:44 PM EDT I was present for the entirety of the procedure(s). * Progress Notes - Iman Massey MD - 05/30/2024 2:51 PM EDT Surgical ICU Daily Progress Note 05/30/24 Rere Hunter HPI 53F with history of HTN, HLD, COPD, GERD, tobacco use, and CAD s/p 4v CABG on 05/06 complicated by post-op ileus. SGE consulted for contained perforation (stomach versus colon) seen on CT. Interval CTscan showed progression of fluid collection between the stomach and colon, with contrast in the collection suggesting colonic perforation. 05/23: exploratory laparotomy, extended left colectomy and end colostomy creation for colonic perforation. Interval: POD#7. AF, VSS. Regular diet today. Ostomy with appropriate output. No significant changein drain OP. Edited by: Iman Massey MD at 05/30/2024 1504 Relevant review of systems was obtained as able and is negative unless stated above in HPI. Vital signs: Visit Vitals BP 129/80 (BP Location: Right arm, Patient Position: Sitting) Pulse 99 Temp 36.6 ??C (97.9 ??F) (Oral) Resp 26 Ht 1.549 m (5' 0.98 ) Wt 62.2 kg (137 lb 2 oz) SpO2 94% BMI 25.92 kg/m?? Smoking Status Every Day BSA 1.64 m?? Intake/Output Summary (Last 24 hours) at 05/30/2024 1507 Last data filed at 05/30/2024 1200 Gross per 24 hour Intake 1228.57 ml Output 335 ml Net 893.57 ml Physical Exam: Physical Exam Constitutional: General: She is not in acute distress. HENT: Head: Normocephalic. Eyes: Conjunctiva/sclera: Conjunctivae normal. Cardiovascular: Rate and Rhythm: Normal rate and regular rhythm. Pulmonary: Effort: Pulmonary effort is normal. No respiratory distress. Abdominal: General: There is no distension. Tenderness: There is abdominal tenderness (mild generalized). Comments: W[place] c/d/I. Upper LENA drain with cloudy OP. Lower LENA with thin bloody output. Ostomy with good brown OP Skin: General: Skin is warm and dry. Neurological: General: No focal deficit present. Mental Status: She is alert and oriented to person, place, and time. Lines/Drains/Tubes: Patient Lines/Drains/Airways Status Active Airway None Output by Drain (mL) 05/28/24 07 - 05/28/24 1859 05/28/24 190 - 05/29/24 0659 05/29/24 0700 - 05/29/24 1859 05/29/24 190 - 05/30/24 0659 05/30/24 0700 - 05/30/24 1507 Closed/Suction Drain 1 Inferior;Left Abdomen Bulb 19 Fr. 5 0 10 5 0 Closed/Suction Drain 1 Left Abdomen Bulb 19 Fr. 20 30 10 10 Labs in last 18 hours: CBC WBC 23.21 (H) Hb 9.7 (L) Plt 603 (H) Hct 29.7 (L) ANC 17.83 (H) INR ??, PTT ??, Anti-Xa ?? BMP Na 131 (L) Cl 96 (L) BUN 14 Glu 112 (H) K 3.7 Co2 24 Cr 0.52 (L) Ca 8.0 (L) iCa ?? Mg 1.9, Phos 4.3 Lactate ?? LFT AST ?? AlkPhos ?? T Prot ?? ALK ?? Bili ?? Alb ?? D.Bili ?? Lab Trends: H/H Results from last 7 days Lab Units 05/30/24 0513 05/29/24 0535 05/28/24 0047 HEMOGLOBIN g/dL 9.7* 9.3* 9.7* HEMATOCRIT % 29.7* 28.9* 30.1* INR Cr Results from last 7 days Lab Units 05/30/24 0513 05/29/24 0700 05/29/24 0535 CREATININE mg/dL 0.52* 0.58* 0.59* Medications reviewed. Vital signs reviewed. Labs reviewed. Radiography reviewed. Assessment and Plan: Medical Problems and Relevant Plans Hospital Problems POA * (Principal) CAD, multiple vessel Yes Overview Addendum 05/23/2024 8:44 AM by Marybel Suarez, ARASH Patient presented to OSH on 05/01/24 c/o chest pain, [facility] reveal mvCAD S/p CABG with Dr. Austin on 05/07 Anxiety and depression Yes Overview Addendum 05/23/2024 8:43 AM by Marybel Suarez, AUTOMOTIVE PORTER Continue home bupropion XL 300 mg daily Continue home citalopram 40 mg daily Continue PRN hydroxyzine 25 mg q6 COPD (chronic obstructive pulmonary disease) ([facility]) Yes Overview Addendum 05/23/2024 8:43 AM by Marybel Suarez, ARASH Duo nebs q6 Wean O2 for SPO2 goal >88% NSTEMI (non-ST elevated myocardial infarction) ([facility] [place]) Yes Overview Addendum 05/22/2024 11:00 AM by Jose Aburto MD Diagnosed at OSH with elevated troponins of 0.05 to 0.23 to 0.16 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, 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 Repeat troponins pending 05/07 POD 1 4V CABG 05/09 EKG ordered and reviewed no signs of ST changes 05/10 ST 105 05/11 ST 100-105 GERD (gastroesophageal reflux disease) Yes Overview Addendum 05/14/2024 2:06 PM by Cydney Luu MD Continue Protonix 40 mg daily 05/07 extubated, no on home PPI dc'd 05/08 pt denies any GERD symptoms 05/09 + PPI for reflux 05/10 docusate, metoclopramide, miralax, senna, simethicone, continue NG to low intermitted, CLD forpt comfort, passing gas 05/11 as above denies reflux today NG clamp trial 05/14 PPI per blue surgery rec for blood tinged NG output Leukocytosis Yes Overview Addendum 05/23/2024 8:50 AM by Marybel Suarez, ARASH Remains febrile with elevated EBC Cultures ordered and pending Hyperlipidemia Yes Overview Signed 05/23/2024 8:47 AM by Marybel Suarez, AUTOMOTIVE PORTER Restart statin when no longer NPO THOM (obstructive sleep apnea) Yes Overview Addendum 05/23/2024 8:45 AM by Marybel Suarez, AUTOMOTIVE PORTER Refusing home CPAP remains on NC S/P CABG x 4 Not Applicable Overview Addendum 05/23/2024 8:45 AM by Marybel Suarez, AUTOMOTIVE PORTER 05/06 4vCBUNNY w/ Dr. Austin Aspirin, statin, beta stacey as clinically appropriate Hypertension Yes Overview Addendum 05/23/2024 8:47 AM by Marybel Suarez, AUTOMOTIVE PORTER Metop IV while NPO Restart PO metop when appropriate Cardiac volume overload No Overview Addendum 05/18/2024 10:24 AM by Sidney Jackson MD Diuresis as clinically indicated Hypoglycemia No Overview Addendum 05/23/2024 8:46 AM by Marybel Suarez, AUTOMOTIVE PORTER Resolved once TPN started Nausea with vomiting No Overview Addendum 05/28/2024 8:26 AM by Sidney Jackson MD TPN running Advance PO diet as able Acute blood loss anemia (ABLA) No Overview Addendum 05/23/2024 8:43 AM by Marybel Suarez, AUTOMOTIVE PORTER Lab Results Component Value Date HGB 9.0 (L) 05/23/2024 CTM with daily labs Transfuse as indicated Gastric perforation (CMS/HCC) No Overview Addendum 05/28/2024 8:26 AM by Sidney Jackson MD colonic perforation. S/p ex lap with blue surgery on 05/23 On total parenteral nutrition (TPN) No Overview Addendum 05/28/2024 11:41 AM by Sidney Jackson MD Started on 05/20 Obtaining PO calorie count. Will DC TPN when able. Ileus (CMS/HCC) No Overview Addendum 05/28/2024 8:25 AM by Sidney Jackson MD S/p colectomy & end colostomy 05/23 2/ perforation Electrolyte abnormality Yes Overview Signed 05/23/2024 8:50 AM by Marybel Suarez, AUTOMOTIVE PORTER - monitor and replace prn Post-op pain Unknown Overview Addendum 05/25/2024 10:12 AM by Dave Baird DO Abdominal tenderness and pain 11/23 Increase dilaudid IV ketamine Delirium Unknown Overview Signed 05/29/2024 2:56 PM by Sidney Jackson MD Hospital delirium Delirium precautions Colon perforation (CMS/HCC) Unknown Overview Addendum 05/24/2024 11:04 AM by Jose Aburto MD Noted on CT scan 05/23/24 To OR with blue surgery S/p left colectomy and end colostomy To Do: - calorie count, can discontinue or decrease TPN as oral intake increases - PPI - Will continue to follow LENA output - Replaced wound vac today Edited by: Iman Massey MD at 05/30/2024 1507 Iman Massey MD Procedures Cosigned by Graciela Nelson MD at 06/03/2024 10:52 PM EDT Associated attestation - Graciela Nelson MD - 06/03/2024 10:52 PM EDT I saw and evaluated the patient with the resident/fellow. I discussed the case with the resident/fellow and agree with the findings and plan as documented. * Progress Notes - Db Kline - 05/30/2024 10:18 AM EDT Pharmacist TPN Progress Note Patient: Rere Hunter Age: 53 y.o. Admission Date: [id number] Subjective/Objective/Hospital Course: 53 y.o. female with PMHx of CAD, HTN, COPD, GERD, tremor, anxiety, depression, and tobacco use, who is currently hospitalized under the care of the CVT surgery team after having a CABG on 05/06/24. Since surgery she has developed nausea, vomiting, and abdominal pain with imaging findings consistent with ileus. Patient has had inadequate energy intake likely related to ileus and has been NPO x [address] 05/20 showed intraabdominal fluid adjacent to stomach concerning for possible perforation. UGI with no perforartion. TPN consult for ileus + possible leak. 05/17: TPN consult placed 05/19: TPN initiated 05/23: CT overnight with PO contrast more convincing for colonic perforation instead of stomach perf. OR with general surgery for left hemicolectomy and colostomy creation. 05/25: CLD ordered late afternoon 05/28: PO diet ordered Problem List[1] Medical History[2] Surgical History[3] Allergies: Latex and Oxycodone LABS: Results from last 7 days Lab Units 05/30/24 0513 05/29/24 0700 05/29/24 0535 05/28/24 0047 05/27/24 0454 05/26/24 0327 05/25/24 0245 05/24/24 1018 05/23/24 1954 05/23/24 1939 05/23/24 1414 05/23/24 1300 05/23/24 1140 GLUCOSE mg/dL 112* 104* 600* 106* 127* 122* 126* 182* -- < > -- < > -- BUN mg/dL 14 13 12 15 16 17 20 28* -- < > -- < > -- CREATININE mg/dL 0.52* 0.58* 0.59* 0.66 0.71 0.73 0.91 1.18* -- < > -- < > -- SODIUM mmol/L 131* 132* 128* 137 134* 136 138 137 -- < > -- < > -- POTASSIUM mmol/L 3.7 4.0 5.1* 4.3 4.1 4.5 5.0* 5.0* -- < > -- < > -- CHLORIDE mmol/L 96* 97 95* 102 99 104 107 106 -- < > -- < > -- CO2 mmol/L 24 25 22 26 26 24 25 21* -- < > -- < > -- CALCIUM mg/dL 8.0* 8.3* 8.1* 8.2* 8.4* 7.8* 7.7* 8.1* -- < > -- < > -- CALCIUM IONIZED WB mg/dL -- -- -- -- -- -- -- -- 4.2* -- 4.4* -- 4.3* PHOSPHORUS mg/dL 4.3 4.1 5.6* 3.8 4.7* 4.0 3.5 -- -- < > -- < > -- MAGNESIUM mg/dL 1.9 -- 2.1 1.9 2.1 2.1 2.4 2.7* -- < > -- < > -- < > = values in this interval not displayed. Results from last 7 days Lab Units 05/30/24 0513 05/29/24 0535 05/28/24 0047 05/27/24 0454 05/26/24 0327 05/25/24 2032 05/25/24 1355 05/25/24 0811 05/25/24 0245 WBC 10*3/uL 23.21* 22.52* 25.00* 30.77* 34.71* -- -- 41.23* 41.90* HEMOGLOBIN g/dL 9.7* 9.3* 9.7* 9.5* 7.1* 7.2* 7.4* 7.2* 7.5* HEMATOCRIT % 29.7* 28.9* 30.1* 29.8* 22.4* 23.1* 23.6* 22.4* 23.1* PLATELETS 10*3/uL 603* 528* 442* 413* 378* -- -- 373* 352 Results from last 7 days Lab Units 05/30/24 0513 05/29/24 0535 05/28/24 0047 05/27/24 0454 05/26/24 0327 05/25/24 0245 05/23/24 1939 ALT U/L -- -- -- -- -- -- 14 AST U/L -- -- -- -- -- -- 26 ALKALINE PHOSPHATASE U/L -- -- -- -- -- -- 97 BILIRUBIN TOTAL mg/dL -- -- -- -- -- -- 0.9 ALBUMIN g/dL 2.3* 2.0* 2.1* 2.1* 2.0* 1.9* 1.7* 1.7* Nutrition Labs: Lab Results Component Value Date TRIG 76 05/19/2024 BILITOT 0.9 05/23/2024 ALBUMIN 2.3 (L) 05/30/2024 PREALBUMIN 6.5 (L) 05/09/2024 HGBA1C 5.3 05/01/2024 CRP 225.3 (H) 05/17/2024 IRON 25 (L) 05/14/2024 TIBC 156 (L) 05/14/2024 Microbiology Results Procedure Component Value Units Date/Time Blood Culture (Aerobic/Anaerobet Set) [[id number]] Collected: 05/23/24 1020 Order Status: Completed Specimen: Blood, Venous Updated: 05/24/24 1101 Culture No growth at day 1 Fungal Blood Culture [[id number]] Collected: 05/17/241812 Order Status: Completed Specimen: Blood, Venous Updated: 05/24/24 0638 Culture No Fungal Growth at 1 Week AFB Blood Culture [[id number]] Collected: 05/17/241812 Order Status: Completed Specimen: Blood, Venous Updated: 05/24/2438 AFB Culture No Mycobacterial Growth at 1 Week Vitals: Visit Vitals BP 129/84 (BP Location: Right arm, Patient Position: Lying) Pulse 90 Temp 36.6 ??C (97.9 ??F) (Oral) Resp 20 [place] Coma Scale Score: 15 [place] Scale Score: 15 Oxygen Therapy: None (Room air) Skin Integrity: Bruising Edema: Generalized Wt Readings from Last 3 Encounters: 05/26/24 62.2 kg (137 lb 2 oz) 06/28/23 59 kg (130 lb) 04/26/23 62.6 kg (138 lb) Current Diet Order: Dietary Orders (From admission, onward) Start Ordered 05/29/24 1449 Oral nutrition supplements (Adult Diet Panel) Until discontinued Question Answer Comment Supplement frequency: Breakfast Supplement frequency: Lunch Supplement frequency: Dinner Breakfast supplement: Roque Fruit Punch Quantity for Breakfast of Roque Fruit Punch Packet One Lunch supplement: Boost Very High Calorie Vanilla Quantity for Lunch of Boost Very High Calorie - Vanilla One Dinner supplement: Roque Fruit Punch Quantity for Dinner of Roque Fruit Punch Packet One 05/29/24 1448 05/29/24 1448 Adult diet Diet texture: Regular; Carbohydrate restriction: Consistent Carb 2 (80 gm max/meal); Fat restriction: Cardiac; GI: Ostomy (Adult Diet Panel) Diet effective now References: IDDSI Diet Texture Guide Question Answer Comment Diet texture Regular Carbohydrate restriction: Consistent Carb 2 (80 gm max/meal) Fat restriction: Cardiac GI Ostomy 05/29/24 1447 Current Medications acetaminophen, 500 mg, Oral, q6h LINDA aspirin, 81 mg, Oral, Daily buPROPion, 150 mg, Oral, BID FOLLOWED BY [START ON 05/31/2024] buPROPion XL, 300 mg, Oral, Daily citalopram, 40 mg, Oral, Daily fat emulsion fish/plant based, 250 mL, Intravenous, Every other day heparin (porcine), 5,000 Units, Subcutaneous, q8h lidocaine, 2 patch, Apply externally, q24h melatonin, 6 mg, Oral, Nightly methocarbamol, 500 mg, Oral, TID metoprolol tartrate, 25 mg, Oral, BID primidone, 50 mg, Oral, BID rosuvastatin, 40 mg, Oral, Nightly sodium chloride, 10 mL, Intravenous, q12h Adult 2-in-1 TPN, 40 mL/hr, Last Rate: 40 mL/hr (05/30/24 0400) Current Anthropometrics: Height: 154.9 cm (5' 0.98 ) Weight: 61.1 kg (134 lb 12.8 oz) [place] body weight: 47.8 kg (105 lb 4.8 oz) Adjusted ideal body weight: 52.8 kg (116 lb 5.7 oz) (126.25%) of IBW Body mass index is 25.13 kg/m??. Adjusted wt: 50.9 kg (if over 125% of IBW) CENTRAL IV Access: PICC (05/18/24) Estimated Nutritional Needs: HBE: 1153 Stress Factor: 1.2-1.4 Total Calories/day: 3362-4338 Protein (amino acids): 1.3-1.6 grams/kg Protein (Amino acids): 66-81 grams/day Measured Energy Needs: Respiratory Quotient: 05/30/2024 Plan/Recommendation: Labs reviewed. Continue half-rate TPN. Will continue to monitor. HALF-RATE TPN: DEXTROSE: 15% (144 g/day CHO) AMINO ACIDS: 5% (48 g/day) Cl:A 1:3, K @ 30 mEq/L @ 40 ml/hr, with 30mg/day thiamine, MVI, and Trace elements Every other day 250ml 20% SMOF lipids Replace electrolytes outside of TPN Calcium and/or Phosphorus supplements MUST be in a separate line from the TPN to avoid precipitation Obtain BMP, magnesium, and Phos daily x 3days and then at least twice weekly Obtain LFT and TGLY weekly I have monitored the TPN therapy, including the labs, and have communicated any modifications with the primary medical/surgical team. Continue current TPN formula and lipid regimen as above. I have communicated the TPN plan with the IV room. Thank you, Db Kline, PharmD Candidate 2024 Preceptor - Moni Méndez, MagalieD [1] Patient Active Problem List Diagnosis Anxiety and depression COPD (chronic obstructive pulmonary disease) (CMS/HCC) CAD, multiple vessel NSTEMI (non-ST elevated myocardial infarction) (CMS/HCC) GERD (gastroesophageal reflux disease) Leukocytosis Hyperlipidemia THOM (obstructive sleep apnea) S/P CABG x 4 Hypertension Cardiac volume overload Hypoglycemia Nausea with vomiting Acute blood loss anemia (ABLA) Gastric perforation (CMS/HCC) On total parenteral nutrition (TPN) Ileus (CMS/HCC) Electrolyte abnormality Colon perforation (CMS/HCC) Post-op pain Delirium [2] Past Medical History: Diagnosis Date Anxiety COPD (chronic obstructive pulmonary disease) ([facility]/HCC) 05/01/2024 Continue Duo nebs q6 SPO2 goal >88% Depression GERD (gastroesophageal reflux disease) 05/01/2024 Continue Protonix 40 mg daily Hyperkalemia 05/06/2024 Now resolved, pt with hypokalemia requiring replacement On mechanically assisted ventilation ([facility] [place]) 05/06/2024 Arrived to ICU intubated 05/07 extubated to 4C 05/08 resolved Tobacco use 05/01/2024 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 Complicates all aspects of care and recovery Tremor 05/01/2024 Continue home primidone 50 mg BID [3] Past Surgical History: Procedure Laterality Date ABDOMINAL ADHESION SURGERY SECTION, CLASSIC CHOLECYSTECTOMY CORONARY ARTERY BYPASS GRAFT 05/06/2024 Coronary artery bypass grafting x4 with CHOWDARY to LAD as a free graft, reverse saphenous vein graft sequential to ramus intermedius artery then to obtuse marginal artery 1, reverse saphenous vein graftto PDA.(Reda) HAND SURGERY Right Tendon repair SHOULDER SURGERY Cosigned by Moni Méndez, PharmD at 05/30/2024 1:53 PM EDT Associated attestation - Moni Méndez, PharmD - 05/30/2024 1:53 PM EDT I have reviewed the students assessment and plan and agree with the below statements * Progress Notes - Abhishek Amor PA - 05/30/2024 8:57 AM EDT CVT Progress Note 24 Hour Events/HPI: Comfortable Review of Systems: A complete ROS was obtained. All were negative except as noted in HPI. Objective: All laboratory data, images, tracings, and vital sign data for past 24 hours are personally reviewed unless otherwise noted. @PATIENTWT@ , Weight: 61.1 kg (134 lb 12.8 oz) , Ht Readings from Last 1 Encounters: 05/11/24 1.549 m (5' 0.98 ) , Body mass index is 25.92 kg/m??. VITALS (last 24h) 05/29/2024 11:00 PM 05/30/2024 12:00 AM 05/30/2024 1:00 AM 05/30/2024 2:00 AM 05/30/2024 3:00 AM 05/30/2024 4:00 AM 05/30/2024 5:00 AM Vitals Systolic 122 129 Diastolic 80 84 Heart Rate 85 85 86 85 84 88 90 Temp 37.1 C 36.6 C Resp 18 22 21 21 22 23 20 I & O Summary Intake/Output Summary (Last 24 hours) at 05/30/2024 0900 Last data filed at 05/30/2024 0400 Gross per 24 hour Intake 850.67 ml Output 835 ml Net 15.67 ml LABS LABS (PAST 18Labs in last 18 hours CBC WBC 23.21 (H) Hb 9.7 (L) Plt 603 (H) Hct 29.7 (L) ANC 17.83 (H) INR ??, PTT ??, Anti-Xa ?? BMP Na 131 (L) Cl 96 (L) BUN 14 Glu 112 (H) K 3.7 Co2 24 Cr 0.52 (L) Ca 8.0 (L) iCa ?? Mg 1.9, Phos 4.3 Lactate ?? LFT AST ?? AlkPhos ?? T Prot ?? ALK ?? Bili ?? Alb ?? D.Bili ?? HOURS) === 05/01/24 === XR CHEST 1 VIEW - Narrative - CLINICAL INDICATION: s/p CABG TECHNIQUE: XR CHEST 1 VIEW COMPARISON: May 28, 2024 FINDINGS: Left PICC tip at the superior cavoatrial junction. Mediastinal and cardiac contours are stable. Left basal airspace disease and/or atelectasis, similar to comparison. Small left pleural effusion. - Impression - Stable exam. CRITICAL RESULT: No. COMMUNICATION: Per this written report Drafted by Champ Oden MD on 05/29/2024 8:55 AM Final report signed by Champ Oden MD on 05/29/2024 8:55 AM MEDICATIONS acetaminophen, 500 mg, Oral, q6h LINDA aspirin, 81 mg, Oral, Daily buPROPion, 150 mg, Oral, BID citalopram, 40 mg, Oral, Daily fat emulsion fish/plant based, 250 mL, Intravenous, Every other day heparin (porcine), 5,000 Units, Subcutaneous, q8h lidocaine, 2 patch, Apply externally, q24h melatonin, 6 mg, Oral, Nightly methocarbamol, 500 mg, Oral, TID metoprolol tartrate, 25 mg, Oral, BID primidone, 50 mg, Oral, BID rosuvastatin, 40 mg, Oral, Nightly sodium chloride, 10 mL, Intravenous, q12h Adult 2-in-1 TPN, 40 mL/hr, Last Rate: 40 mL/hr (05/30/24 0400) PRN medications: benzocaine-menthol, hydrALAZINE, HYDROmorphone OR HYDROmorphone, ipratropium-albuterol, [DISCONTINUED] ondansetron ODT OR ondansetron OR [DISCONTINUED] ondansetron, oxyCODONE OR oxyCODONE, phenol, simethicone, sodium chloride, sodium chloride Physical Exam: General: alert and oriented, no acute distress, resting in bed HEENT: normocephalic, atraumatic, NC in place Eyes: no scleral icterus, normal conjunctiva Neck: supple, no trachea deviation Lungs: symmetric chest rise, non-labored breathing Heart: rrr on monitor Abdomen: soft, tender to palpation, abdominal drains with serosanguinous output and dressings c/d/I, colostomy pink and making stool Extremities: no peripheral edema Skin: no rash, no cyanosis and warm to touch Neuro: aaox4, no focal deficits Psychiatric: oriented to person/place/time and normal mood/affect Assessment and Plan: Assessment/Plan Principal Problem: CAD, multiple vessel Active Problems: Anxiety and depression COPD (chronic obstructive pulmonary disease) (CMS/HCC) NSTEMI (non-ST elevated myocardial infarction) (CMS/HCC) GERD (gastroesophageal reflux disease) Leukocytosis Hyperlipidemia THOM (obstructive sleep apnea) S/P CABG x 4 Hypertension Cardiac volume overload Hypoglycemia Nausea with vomiting Acute blood loss anemia (ABLA) Gastric perforation (CMS/HCC) On total parenteral nutrition (TPN) Ileus (CMS/HCC) Electrolyte abnormality Post-op pain Delirium Colon perforation (CMS/HCC) 53 y/o F female who underwent CABG x 4 on 05/06/[address] Austin. -transfer to telem when bed available -diet per blue surgery -drain care per blue surgery -minimize narcotics to help with confusion -DVT ppx -home meds as appropriate -continue 1/2 TPN until tolerating regular diet -continue ICU care -pt/ot, mobilize; need to walk in hallway as able * Care Plan - Marcie Fisher RN - 05/29/2024 10:22 PM EDT Problem: Adult Inpatient Plan of Care Goal: Plan of Care Review Outcome: Ongoing, Progressing Goal: Patient-Specific Goal (Individualized) Outcome: Ongoing, Progressing Goal: Absence of Hospital-Acquired Illness or Injury Outcome: Ongoing, Progressing Goal: Optimal Comfort and Wellbeing Outcome: Ongoing, Progressing Goal: Readiness for Transition of Care Outcome: Ongoing, Progressing Problem: Infection Goal: Absence of Infection Signs and Symptoms Outcome: Ongoing, Progressing Problem: Self-Care Deficit Goal: Improved Ability to Complete Activities of Daily Living Outcome: Ongoing, Progressing Problem: Mechanical Ventilation Invasive Goal: Mechanical Ventilation Liberation Outcome: Ongoing, Progressing Goal: Optimal Device Function Outcome: Ongoing, Progressing Goal: Absence of Device-Related Skin and Tissue Injury Outcome: Ongoing, Progressing * Progress Notes - Teena Jessica - 05/29/2024 3:08 PM EDT Music Therapy Note Subjective: Patient Presented: Reclining out of bed (in chair/couch) Initial Behavioral Presentation: Neutral, Calm/still Intrasession Behavioral Presentation: Positive, Neutral, Calm/still After Disposition/ Affect: Neutral, Calm/still Treatment Goals & Interventions: Increase: Autonomy & control, Coping, Spiritual comfort Decrease: Impact of length of stay Music Therapy Interventions: Choice making, Receptive music listening, Verbal Processing Communications: Methods: Verbalizations Responses: Making choices, Positive comments about the music, Coping statements, Statement of janie, Memories Behavioral Observations: Responses: Active Listening, Engaging in discussion, Eye contact, Making choices, Smiling, Relaxation behaviors, Reminiscing Engagement Level: Active Engagement Musical Responses: Musical Responses: Expressive movement, Mouthing lyrics, Singing Length of Visit: Length of Visit: 38 min Plan of Care: Plan of Care: Continue to address above goals and additional goals as appropriate during hospitalization * Progress Notes - Sidney Jackson MD - 05/29/2024 2:59 PM EDT Procedures 05/29/24 Rere Hunter HPI Rere Hunter is a 53 y.o. female who presents with CAD, multiple vessel. If applicable, patient is s/p Procedure(s) and Anesthesia Type: Panel 1: * LAPAROTOMY, EXPLORATORY, possible bowel resection, possible ostomy - General Panel 2: * COLECTOMY, PARTIAL. Patient is 6 Days Post-Op with General Surgery. Past 24 hours: PM: NAEO. Remove de los santos once awake AM: Continue to obtain calorie count, will wean TPN as able. Encourage ambulation and PO intake. De [place] Santos removed. Continuing intermittent delirium. Adding melatonin. Spoke with patient and family aboutdelirium and importance of maintaining a regular sleep schedule while in hospital. Edited by: Sidney Jackson MD at 05/29/2024 1501 Lines/Drains/Tubes: Patient Lines/Drains/Airways Status Active Active LDAs Name Placement date Placement time Site Days PICC Double Lumen 05/19/24 Left Basilic vein 05/19/24 0050 Basilic vein 10 Peripheral IV 05/12/24 Anterior;Left Forearm 05/12/24 0030 Forearm 17 Peripheral IV 05/23/24 Left Hand 05/23/24 1440 Hand 6 Closed/Suction Drain 1 Inferior;Left Abdomen Bulb 19 Fr. 05/23/24 1714 Abdomen 5 Closed/Suction Drain 1 Left Abdomen Bulb 19 Fr. 05/23/24 1714 Abdomen 5 Colostomy Transverse RUQ 05/23/24 -- RUQ 6 Urethral Catheter Non-latex;Single lumen;Temperature probe 16 Fr. 05/23/24 1355 -- 6 Negative Pressure Wound Therapy Abdomen Lower;Upper;Mid 05/23/24 1757 Abdomen 5 GCS: [place] Coma Scale Score: 15 Review of Systems 14 point ROS reviewed and otherwise negative or unobtainable except as noted above or in HPI. Vital signs: Vitals: 05/29/24 0809 BP: Pulse: 88 Resp: Temp: SpO2: Intake/Output Summary (Last 24 hours) at 05/29/2024 1501 Last data filed at 05/29/2024 0600 Gross per 24 hour Intake 580.59 ml Output 1180 ml Net -599.41 ml Physical Exam: Sedation was held for the purposes of examination. Physical Exam Vitals reviewed. Constitutional: General: She is not in acute distress. HENT: Head: Normocephalic and atraumatic. Mouth/Throat: Mouth: Mucous membranes are dry. Pharynx: Oropharynx is clear. Eyes: General: Vision grossly intact. Extraocular Movements: Extraocular movements intact. Pupils: Pupils are equal, round, and reactive to light. Cardiovascular: Pulses: Normal pulses. Comments: No unanticipated findings. Pulmonary: Effort: Pulmonary effort is normal. Breath sounds: Normal air entry. Comments: No unanticipated findings. Abdominal: Palpations: Abdomen is soft. There is no mass. Tenderness: There is abdominal tenderness (Tender in upper abdomen > lower abdomen). Comments: Stoma well-appearing. Musculoskeletal: General: No deformity. Normal range of motion. Cervical back: Normal range of motion. No rigidity. Skin: General: Skin is warm and dry. Neurological: General: No focal deficit present. Mental Status: She is alert, oriented to person, place, and time and easily aroused. Mental status is at baseline. Psychiatric: Behavior: Behavior normal. Behavior is cooperative. Labs in last 18 hours: CBC WBC 22.52 (H) Hb 9.3 (L) Plt 528 (H) Hct 28.9 (L) ANC 18.47 (H) INR ??, PTT ??, Anti-Xa ?? BMP Na 132 (L) Cl 97 BUN 13 Glu 104 (H) K 4.0 Co2 25 Cr 0.58 (L) Ca 8.3 (L) iCa ?? Mg 2.1, Phos 4.1 Lactate ?? LFT AST ?? AlkPhos ?? T Prot ?? ALK ?? Bili ?? Alb ?? D.Bili ?? Imaging as available: === 05/01/24 === XR CHEST 1 VIEW - Narrative - CLINICAL INDICATION: evaluation TECHNIQUE: XR CHEST 1 VIEW COMPARISON: May 24, 2024 FINDINGS: Stable support hardware. Stable cardiomediastinal silhouette. No new consolidation. Persistent layering left-sided pleural effusion. No pneumothorax. - Impression - No significant interval changes. CRITICAL RESULT: No. COMMUNICATION: Per this written report. By electronically signing this report, I, the attending physician, attest that I have personally reviewed the images/data for the above examination(s) and agree with the final edited report. Drafted by Mino Hobbs MD on 05/25/2024 8:09 AM Final report signed by Champ Oden MD on 05/25/2024 8:59 AM Reviewed and agree with above. Assessment and Plan: This patient is critically ill. Medical Problems and Relevant Plans Hospital Problems POA * (Principal) CAD, multiple vessel Yes Overview Addendum 05/23/2024 8:44 AM by Marybel Suarez APRN Patient presented to OSH on 05/01/24 c/o chest pain, LHC reveal mvCAD S/p CABG with Dr. Austin on 05/07 Anxiety and depression Yes Overview Addendum 05/23/2024 8:43 AM by Marybel Suarez APRN Continue home bupropion XL 300 mg daily Continue home citalopram 40 mg daily Continue PRN hydroxyzine 25 mg q6 COPD (chronic obstructive pulmonary disease) ([facility] [place]) Yes Overview Addendum 05/23/2024 8:43 AM by Marybel Suarez APRN Duo nebs q6 Wean O2 for SPO2 goal >88% NSTEMI (non-ST elevated myocardial infarction) ([facility] [place]) Yes Overview Addendum 05/22/2024 11:00 AM by Jose Aburto MD Diagnosed at OSH with elevated troponins of 0.05 to 0.23 to 0.16 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, 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 Repeat troponins pending 05/07 POD 1 4V CABG 05/09 EKG ordered and reviewed no signs of ST changes 05/10 ST 105 05/11 ST 100-105 GERD (gastroesophageal reflux disease) Yes Overview Addendum 05/14/2024 2:06 PM by Cydney Luu MD Continue Protonix 40 mg daily 05/07 extubated, no on home PPI dc'd 05/08 pt denies any GERD symptoms 05/09 + PPI for reflux 05/10 docusate, metoclopramide, miralax, senna, simethicone, continue NG to low intermitted, CLD forpt comfort, passing gas 05/11 as above denies reflux today NG clamp trial 05/14 PPI per blue surgery rec for blood tinged NG output Leukocytosis Yes Overview Addendum 05/23/2024 8:50 AM by Marybel Suarez, AUTOMOTIVE PORTER Remains febrile with elevated EBC Cultures ordered and pending Hyperlipidemia Yes Overview Signed 05/23/2024 8:47 AM by Marybel Suarez, AUTOMOTIVE PORTER Restart statin when no longer NPO THOM (obstructive sleep apnea) Yes Overview Addendum 05/23/2024 8:45 AM by Marybel Suarez, AUTOMOTIVE PORTER Refusing home CPAP remains on NC S/P CABG x 4 Not Applicable Overview Addendum 05/23/2024 8:45 AM by Marybel Suarez, 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 Austin Aspirin, statin, beta stacey as clinically appropriate Hypertension Yes Overview Addendum 05/23/2024 8:47 AM by Marybel Suarez, AUTOMOTIVE PORTER Metop IV while NPO Restart PO metop when appropriate Cardiac volume overload No Overview Addendum 05/18/2024 10:24 AM by Sidney Jackson MD Diuresis as clinically indicated Hypoglycemia No Overview Addendum 05/23/2024 8:46 AM by Marybel Suarez, AUTOMOTIVE PORTER Resolved once TPN started Nausea with vomiting No Overview Addendum 05/28/2024 8:26 AM by Sidney Jackson MD TPN running Advance PO diet as able Acute blood loss anemia (ABLA) No Overview Addendum 05/23/2024 8:43 AM by Marybel Suarez, AUTOMOTIVE PORTER Lab Results Component Value Date HGB 9.0 (L) 05/23/2024 CTM with daily labs Transfuse as indicated Gastric perforation (CMS/HCC) No Overview Addendum 05/28/2024 8:26 AM by Sidney Jackson MD colonic perforation. S/p ex lap with blue surgery on 05/23 On total parenteral nutrition (TPN) No Overview Addendum 05/28/2024 11:41 AM by Sidney Jackson MD Started on 05/20 Obtaining PO calorie count. Will DC TPN when able. Ileus (CMS/HCC) No Overview Addendum 05/28/2024 8:25 AM by Sidney Jackson MD S/p colectomy & end colostomy 05/23 2/ perforation Electrolyte abnormality Yes Overview Signed 05/23/2024 8:50 AM by Marybel Suarez APRN - monitor and replace prn Post-op pain Unknown Overview Addendum 05/25/2024 10:12 AM by Dave Baird DO Abdominal tenderness and pain 11/23 Increase dilaudid IV ketamine Delirium Unknown Overview Signed 05/29/2024 2:56 PM by Sidney Jackson MD Hospital delirium Delirium precautions Colon perforation (CMS/HCC) Unknown Overview Addendum 05/24/2024 11:04 AM by Jose Aburto MD Noted on CT scan 05/23/24 To OR with blue surgery S/p left colectomy and end colostomy Sidney Jackson MD Cosigned by Gregg Burdick MD at 06/05/2024 1:24 PM EDT Associated attestation - Gregg Burdick MD - 06/05/2024 1:24 PM EDT I saw and evaluated the patient with the resident/fellow. I discussed the case with the resident/fellow and agree with the findings and plan as documented. * Consults - Cheri Mckay RD - 05/29/2024 2:53 PM EDT Adult Nutrition Evaluation Note Rere Hunter 53 y.o. female CSN: [id number] Room/Bed 216/216A Nutrition evaluation type: follow-up Reason for evaluation: Hospital course: 53 y.o. female presents for CABG evaluation. OR on 05/06. 05/16: NPO x 5 days d/t ileus. Trial of clamping NGT. SGE is following. Pt has been intermittently confused. 05/18: Patient transferred back to ICU yesterday given worsening abdominal exam, electrolyte abnormalities, and overall care requirements. Having fevers, tachycardia. General surgery and GI acutely involved for worsening bowel exam with CT findings concerning for possible gastric perforation. 05/21: Currently receiving TPN. NGT to suction. 05/29: S/P Exploratory laparotomy, extensive lysis of adhesions, left colectomy(performed by colorectal surgery), end colostomy creation, abdominal washout, application of negative pressure wound VAC therapy to skin and soft tissues on 05/23 d/t colon perforation. Continues on TPN, decreased to half rate. Po diet initiated and advanced on 05/28; calorie count started. Past medical/ surgical history: Medical History[1] Surgical History[2] Social history: Additional comments: Minimal PO intake recently, diet advancing per protocol. 05/11: Pt reports appetite improving, trying to eat. Pt denied n/v/d/c, denied chewing/swallowing difficulty. Pt denied involuntary wt changes. No feeding tube present. Vitals and Basic Assessment: BP: 128/77 Temp: 37.4 ??C (99.3 ??F) Invasive Ventilator Initiated (ETT/Trach Only): Yes Oxygen Therapy: None (Room air) O2 Delivery Method: Nasal cannula [place] Coma Scale Score: 15 Shaan Scale Score: 15 Joshua/Cubbin Pressure Risk Score: 39 Most Recent BM Date: 05/29/24 GI Symptoms: Nausea Edema: Generalized Colostomy output: 180 mL Wound vac in place Allergies: NKFA Medications: acetaminophen, 500 mg, Oral, q6h LINDA aspirin, 81 mg, Oral, Daily buPROPion, 150 mg, Oral, BID citalopram, 40 mg, Oral, Daily fat emulsion fish/plant based, 250 mL, Intravenous, Every other day heparin (porcine), 5,000 Units, Subcutaneous, q8h lidocaine, 2 patch, Apply externally, q24h melatonin, 6 mg, Oral, Nightly methocarbamol, 500 mg, Oral, TID metoprolol tartrate, 25 mg, Oral, BID primidone, 50 mg, Oral, BID rosuvastatin, 40 mg, Oral, Nightly sodium chloride, 10 mL, Intravenous, q12h Meds were reviewed: Yes Labs: Lab Results Component Value Date GLUCOSE 104 (H) 05/29/2024 CALCIUM 8.3 (L) 05/29/2024 NA 132 (L) 05/29/2024 K 4.0 05/29/2024 CO2 25 05/29/2024 CL 97 05/29/2024 BUN 13 05/29/2024 CREATININE 0.58 (L) 05/29/2024 PHOS 4.1 05/29/2024 MG 2.1 05/29/2024 HGBA1C 5.3 05/01/2024 Anthropometrics: Height: 154.9 cm (5' 0.98 ) Weight: 62.2 kg (137 lb 2 oz) BMI (Calculated): 25.92 Weight Evaluation: Overweight (BMI 25-29.9) [place] Body Weight (kg): 47.7 Percent [place] Body Weight: 126 Adjusted Body Weight (kg): 50.9 Estimated Needs: Kcal/ K-35 Kcal Provided: 5294-0514 Kcal Needs Based On: Adjusted weight Gm Protein/ Kg : 1.5 Protein Provided: 76 Protein Needs Based On: Adjusted weight Metabolic Cart Study Results: Current Nutrition Intake: Diet Order: Adult Diet Diet Texture: Regular Adult Carbohydrate Restriction: Consistent CHO 2 (5479-6003 Channing, 80 g/meal) Fat Restriction: Cardiac Percent Meals Eaten (%): Calorie count in progress HALF-RATE TPN: DEXTROSE: 15% (144 g/day CHO) AMINO ACIDS: 5% (48 g/day) Cl:A 1:3, K @ 30 mEq/L @ 40 ml/hr, with 30mg/day thiamine, MVI, and Trace elements Every other day 250ml 20% SMOF lipids Diet Experience and Nutrition History: Diet Education Provided: Will monitor Pertinent home medications: reviewed Gnosticist needs: Nutrition Focused Physical Exam: Physical exam performed on (date): 05/11 Temples (muscles): None Clavicle (muscle): None Shoulder (muscle): None Interosseous (muscle): None Thigh (muscle): None Calf (muscle): Mild Orbital (fat): None Triceps (fat): None Assessment of Malnutrition: Malnutrition Identified: No Nutrition Problem: Increased nutrient needs protein, calories related to s/p CABG/exp lap as evidenced by increased metabolic demands of surgical wound healing. Status of Nutrition Diagnosis: Ongoing Inadequate energy intake related to ileus/possible gastric perforation -> colonic perforation asevidenced by NPO x 7 days -> TPN initiated -> TPN + po diet Status of Nutrition Diagnosis: Improvement Nutrition Interventions and Recommendations: - TPN per pharmacy. - Added ostomy option to diet order. - Added Boost VHC once daily + Roque BID. - Will follow up with calorie count results. - Ostomy diet education prior to discharge. Nutrition Monitoring and Goals: - Will monitor PO intake/EN infusion, weight, skin, labs, nutrition status - Po intake to meet estimated needs - monitor elytes (ongoing) - monitor ostomy output - Pt will maintain body weight throughout hospital admission (ongoing) - ostomy diet education Acuity Level: [address], LD [1] Past Medical History: Diagnosis Date Anxiety COPD (chronic obstructive pulmonary disease) ([facility] [place]) 05/01/2024 Continue Duo nebs q6 SPO2 goal >88% Depression GERD (gastroesophageal reflux disease) 05/01/2024 Continue Protonix 40 mg daily Hyperkalemia 05/06/2024 Now resolved, pt with hypokalemia requiring replacement On mechanically assisted ventilation ([facility] [place]) 05/06/2024 Arrived to ICU intubated 05/07 extubated to 4LNC 05/08 resolved Tobacco use 05/01/2024 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 Complicates all aspects of care and recovery Tremor 05/01/2024 Continue home primidone 50 mg BID [2] Past Surgical History: Procedure Laterality Date ABDOMINAL ADHESION SURGERY SECTION, CLASSIC CHOLECYSTECTOMY CORONARY ARTERY BYPASS GRAFT 05/06/2024 Coronary artery bypass grafting x4 with CHOWDARY to LAD as a free graft, reverse saphenous vein graft sequential to ramus intermedius artery then to obtuse marginal artery 1, reverse saphenous vein graftto PDA.(Reda) HAND SURGERY Right Tendon repair SHOULDER SURGERY * Progress Notes - Manny Angeles - 05/29/2024 2:29 PM EDT Narrative Medicine Progress Note Visit Type: Initial inpatient Narrative Medicine visit. 15 minutes. Pt is pleasant and interactive but somewhat confused. She says she was worried about dying. She seems to be better than previously. Her son is with her in the room and attentive to her needs. He saysher state of mind is greatly improved relative to 48 hours ago and she is almost back to the personhe knows. Pt reports a strained situation with a staff member but no recent concerns. She seems open to help. Follow up. * Progress Notes - Duane Amor - 05/29/2024 1:34 PM EDT Physical Therapy Treatment Patient Name: Rere Hunter Today's Date: 05/29/2024 PT Discharge Recommendations: LTACH Equipment Recommended: Defer to facility Subjective Patient motivated to work with therapist. Participants in Care Family/Caregiver Present: Yes Family/Caregiver: Adult Son Presentation Oxygen Therapy: None (Room air) Lines and Tubes: Telemetry, Intravenous access, Surgical drains, Wound vac Pre-Session: Supine, Head of bed elevated, Lines intact Pre-Session Comments: RN agreeable to session. Post-Session: Sitting in chair, Lines intact, RN notified, Chair alarm, Call light in reach Post-Session Comments: all needs met Precautions Medical Precautions: Fall precautions, Sternal Objective Pain I'm aright right now . Reports occasional stomach pain. Positioned for comfort at end of sessio with pillow support provided. Delirium Screening Urban Agitation Sedation Scale (RASS): Alert and calm Confusion Assessment Method-ICU (CAM-ICU/PCAM-ICU) Feature 3: Altered Level of Consciousness: Negative Bed Mobility Bed Mobility Exam: Scooting/Bridging Level of Harmon: Maximum assist (25% patient's effort) Physical/Nonphysical Assist: Verbal Cues, Set-up required, Additional assist utilized for safety Assistive Device: Other (draw sheet to scoot to EOB) Bed Mobility Exam: Supine to Sit Level of Harmon: Maximum assist (25% patient's effort) Physical/Nonphysical Assist: Verbal Cues, Set-up required, Additional assist utilized for safety Transfers Transfer Exam: Sit to stand Level of Harmon: Minimum assist (75% patient's effort) Physical/Nonphysical Assist: Verbal Cues, Set-up required, 1 person + 1 person to manage equipment Assistive Device: Hand held assist Transfer Exam: Stand to Sit Level of Harmon: Minimum assist (75% patient's effort) Physical/Nonphysical Assist: Verbal Cues, Set-up required Assistive Device: Hand held assist Ambulation Device: Rollator Assistance: Minimum assistance, Minimal verbal cues, Minimal tactile cues Distance : 50', seated rest break, 50' Ambulation Comments: Patient required Debbie for balance, safety, and control of rollator. She was generally unsteady and had difficulty controlling rollator ofte veering to R side. She also ambulated with very narrow base of support and decreased step height/length responding well to cues for improving gait quality. Balance Postural Appearance Posture: Stooped posture, Forward head, Rounded shoulders Static Sitting Balance Static Sitting-Balance Support: Feet supported Static Sitting-Level of Assistance: Contact guard (occasional Debbie) Dynamic Sitting Balance Dynamic Sitting-Balance Support: Feet supported Level of Assistance: Minimum assistance Static Standing Balance Static Standing-Balance Support: Right upper extremity support, Left upper extremity support Static Standing-Level of Assistance: Minimum assistance Dynamic Standing Balance Dynamic Standing-Balance Support: Right upper extremity support, Left upper extremity support Dynamic Standing Level of Assistance: Minimum assistance Participation in Functional Tasks: Minimum assistance Therapeutic Activity (25 minutes) Therapist educated patient on post-op mobility guidelines and demonstrated sternal precautions as she had a tendency to impulsively use arms outside base of support. Patient required brief breaks andincreased time throughout session due to shortness of air/fatigue. Patient was instructed in mobility while maintaining sternal precautions. Therapist provided cues for focus on pacing and energy conservation in order to improve endurance/activity tolerance this session. Patient was able to ambulate 50'x2 with a prolonged seated rest break. Therapist answered questions patient had regarding timeline and mobility restrictions and discussed plan of care/goal as patient expressed desire to go to [facility]. Assessment Patient with no significant change in mobility this date. She was able to improve gait distance by ~10' each direction but continues to be generally unsteady and limited by rapid fatigue. Vital signsremained WNL with no adverse effects to treatment. PT Recommendations Discharge Destination: LTACH Discharge Equipment: Defer to facility Plan Continue with plan of care and progress mobility as tolerated. PT Goals PT GOAL DETAILS Goal Established Date Time Frame Goal Status PT Goal 1: Pt will perform supine<>sit transfers with CGA and HOB flat, no use of bed rails. 05/07/24 2 weeks Goal not met, Goal ongoing PT Goal 2: Pt will perform sit to stand and bed to chair transfers with Stefan and LRD. 05/07/24 2 weeks Goal not met, Goal ongoing PT Goal 3: Pt will ambulate >600ft with Stefan and LRD. 05/07/24 2 weeks Goal not met, Goal ongoing PT Goal 4: Pt will safely ascend/descend 3 steps with SBA, one handrail. 05/07/24 2 weeks Goal not met, Goal ongoing Written by Duane Amor on 05/29/24 at 2:06 PM. * Progress Notes - Nancy Sabillonronak Negrete - 05/29/2024 1:31 PM EDT Occupational Therapy Treatment Patient Name: Rere Hunter Today's Date: 05/29/2024 OT Discharge Recommendations: LTACH Equipment Recommended: Defer to facility Subjective Pt agreeable to participate in OT session. Participants in Care Family/Caregiver Present: Yes Family/Caregiver: Adult Son Presentation Oxygen Therapy: None (Room air) Lines and Tubes: Telemetry, Intravenous access, Surgical drains, Wound vac Pre-Session: Supine, Head of bed elevated, Lines intact Pre-Session Comments: RN agreeable to session. Post-Session: Sitting in chair, Lines intact, RN notified, Chair alarm, Call light in reach Post-Session Comments: all needs met Precautions Medical Precautions: Fall precautions, Sternal Objective Pain Pt with no significant reports of pain this date. Pt positioned for increased comfort at chair level at end of session, RN notified. Delirium Screening Urban Agitation Sedation Scale (RASS): Alert and calm Confusion Assessment Method-ICU (CAM-ICU/PCAM-ICU) Feature 3: Altered Level of Consciousness: Negative Cognition Cognition Overall Cognitive Status: Within Functional Limits Arousal/Alertness: Appropriate responses to stimuli Mood/Behavior: Anxious, Lethargic, Flat affect Single Step Commands: With increased time, With repetition, Consistently Multi-Step Commands: With increased time, With repetition, Consistently Method of Communication: Verbal Bed Mobility Bed Mobility Exam: Scooting/Bridging Level of Harmon: Maximum assist (25% patient's effort) Physical/Nonphysical Assist: Verbal Cues, Set-up required, Additional assist utilized for safety Assistive Device: Other (draw sheet) Bed Mobility Exam: Supine to Sit Level of Harmon: Maximum assist (25% patient's effort) Physical/Nonphysical Assist: Verbal Cues, Set-up required, Additional assist utilized for safety Assistive Device: Other (draw sheet) Transfers Transfer Exam: Sit to stand Level of Harmon: Minimum assist (75% patient's effort) Physical/Nonphysical Assist: Verbal Cues, Set-up required, 1 person + 1 person to manage equipment Assistive Device: Hand held assist Transfer Exam: Stand to Sit Level of Harmon: Minimum assist (75% patient's effort) Physical/Nonphysical Assist: Verbal Cues, Set-up required Assistive Device: Hand held assist Self-Care Interventions Self Care/Home Management (ADLs) Time Entry: 29 Pt actively participated in self-care interventions this date with an emphasis on functional mobility, endurance, and ADL retraining. Pt engaged in bed mobility, functional transfers, and household distance ambulation ADLs to assess potential performance skill deficits impeding occupational independence. Pt benefited from skilled occupational therapy interventions including: Monitoring of vitals to ensure activity tolerance (Vitals remained WFL throughout session) MOD verbal and tactile cues to facilitate improved body mechanics and safety with AD use during functional tasks Provision of increased time frames to support optimal level of pt participation Task/activity modification with grading as needed to achieve safety while also providing appropriate functional challenge Skilled organization and management of medical lines/tubes to reduce fall risk with mobility aspects of ADLs Environmental set-up to ensure safety and accessibility to all needed areas of treatment space Health Management Health Management interventions: Therapist facilitated functional bed mobility in preparation for OOB ADL engagement. Pt completed supine>sit with max assist x 2 for trunk control and BLE management. Pt requiring maximal verbal cues to adhere to sternal precautions this date. Increased time, multi-modal cues, environmental set-up, seated rest breaks, and positioning utilized throughout sessionto facilitate optimal pt performance in therapeutic tasks. Household/Community Re-entry: Patient challenged to perform functional mobility within room and in hallway to address functional endurance, environmental navigation, and prepare patient for communityre-entry and navigate household distances. Pt navigating through doorways, along straight paths, around turns, and around large obstacles with min assist x 2 using rollator + chair follow. Pt requiring 1 prolonged seated rest break to navigate distances this date. Therapist provided moderate verbalcues for AE use, safe hand positioning, BLE sequencing, pacing, and weight shifting to improve dynamic balance and safety awareness. Assessment On this date, pt demonstrated functional improvement during OT session, with ability to engage in ADL preparatory routines with min-max assist x 2, use of assistive devices/adaptive equipment (rollator), increased time, mod-max cueing, and rest breaks. Pt remains limited by symptoms consistent withanxiety, poor functional endurance, mild confusion, imbalance and decreased activity tolerance. This negatively impacts safety and independence with self-care execution/IADL's. With this in mind, OT will continue to follow while hospitalized but pt is currently most appropriate for LTACH upon discharge 2/2 TPN requirements. While pt remains hospitalized, OT will provide skilled therapy services for the purpose of improving functional status, decreasing caregiver level of burden, and increasing quality of life. OT Recommendations Discharge Destination: LTACH Discharge Equipment: Defer to facility Plan Continue with established OT plan of care 2-5x/week to progress towards functional OT goals. Goals OT GOAL DETAILS Goal Established Date Time Frame Goal Status OT Goal 1: Pt will perform functional toilet transfer including entering/exiting bathroom with mod I using DME as needed. 05/07/24 2 weeks Goal not met, Goal ongoing OT Goal 2: Pt will perform three consecutive grooming activities standing at the sink with mod I using DME as needed. 05/07/24 2 weeks Goal not met, Goal ongoing OT Goal 3: Pt will perform three consecutive LB dressing activities in sitting/standing with mod I using DME/AE as needed. 05/07/24 2 weeks Goal not met, Goal ongoing OT Goal 4: Pt will verbalize/demonstrate sternal precautions with 100% accuracy in order to safely participate in her ADL routine. 05/07/24 2 weeks Goal not met, Goal ongoing Written by Keisha Sabillon on 05/29/24 at 2:16 PM. * Progress Notes - Db Kline - 05/29/2024 10:51 AM EDT Pharmacist TPN Progress Note Patient: Rere Hunter Age: 53 y.o. Admission Date: [id number] Subjective/Objective/Hospital Course: 53 y.o. female with PMHx of CAD, HTN, COPD, GERD, tremor, anxiety, depression, and tobacco use, who is currently hospitalized under the care of the CVT surgery team after having a CABG on 05/06/24. Since surgery she has developed nausea, vomiting, and abdominal pain with imaging findings consistent with ileus. Patient has had inadequate energy intake likely related to ileus and has been NPO x [address] 05/20 showed intraabdominal fluid adjacent to stomach concerning for possible perforation. UGI with no perforartion. TPN consult for ileus + possible leak. 05/17: TPN consult placed 05/19: TPN initiated 05/23: CT overnight with PO contrast more convincing for colonic perforation instead of stomach perf. OR with general surgery for left hemicolectomy and colostomy creation. 05/25: CLD ordered late afternoon 05/28: PO diet ordered Problem List[1] Medical History[2] Surgical History[3] Allergies: Latex and Oxycodone LABS: Results from last 7 days Lab Units 05/29/24 0700 05/29/24 0535 05/28/24 0047 05/27/24 0454 05/26/24 0327 05/25/24 0245 05/24/24 1018 05/23/24 1954 05/23/24 1939 05/23/24 1414 05/23/24 1300 05/23/24 1140 05/23/24 0540 05/23/24 0115 05/22/24 1850 05/22/24 1132 GLUCOSE mg/dL 104* 600* 106* 127* 122* 126* 182* -- 280* 280* -- < > -- 117* 110* 110* 126* 143* BUN mg/dL 13 12 15 16 17 20 28* -- 20 20 -- < > -- 12 13 13 13 13 CREATININE mg/dL 0.58* 0.59* 0.66 0.71 0.73 0.91 1.18* -- 1.06 1.06 -- < > -- 0.69 0.67 0.67 0.66 0.62 SODIUM mmol/L 132* 128* 137 134* 136 138 137 -- 137 137 -- < > -- 136 136 136 136 138 POTASSIUM mmol/L 4.0 5.1* 4.3 4.1 4.5 5.0* 5.0* -- 5.5* 5.5* -- < > -- 4.2 4.0 4.0 3.7 3.9 CHLORIDE mmol/L 97 95* 102 99 104 107 106 -- 107 107 -- < > -- 104 103 103 102 104 CO2 mmol/L 25 22 26 26 24 25 21* -- 20* 20* -- < > -- 24 25 25 26 25 CALCIUM mg/dL 8.3* 8.1* 8.2* 8.4* 7.8* 7.7* 8.1* -- 7.5* 7.5* -- < > -- 7.7* 7.9* 7.9* 7.7* 7.9* CALCIUM IONIZED WB mg/dL -- -- -- -- -- -- -- 4.2* -- 4.4* -- 4.3* 4.3* 4.2* 4.2* 4.4* PHOSPHORUS mg/dL 4.1 5.6* 3.8 4.7* 4.0 3.5 -- -- 6.4* -- < > -- 3.9 3.4 3.6 3.5 MAGNESIUM mg/dL -- 2.1 1.9 2.1 2.1 2.4 2.7* -- 1.8* -- < > -- 2.0 1.9 2.0 2.0 < > = values in this interval not displayed. Results from last 7 days Lab Units 05/29/24 0535 05/28/24 0047 05/27/24 0454 05/26/24 0327 05/25/24 2032 05/25/24 1355 05/25/24 0811 05/25/24 0245 05/24/24 1018 WBC 10*3/uL 22.52* 25.00* 30.77* 34.71* -- -- 41.23* 41.90* 35.21* HEMOGLOBIN g/dL 9.3* 9.7* 9.5* 7.1* 7.2* 7.4* 7.2* 7.5* 8.7* HEMATOCRIT % 28.9* 30.1* 29.8* 22.4* 23.1* 23.6* 22.4* 23.1* 26.8* PLATELETS 10*3/uL 528* 442* 413* 378* -- -- 373* 352 375* Results from last 7 days Lab Units 05/29/24 0535 05/28/24 0047 05/27/24 0454 05/26/24 0327 05/25/24 0245 05/23/24 1939 05/23/24 1300 05/23/24 0540 05/23/24 0115 ALT U/L -- -- -- -- -- 14 -- -- 14 AST U/L -- -- -- -- -- 26 -- -- 29 ALKALINE PHOSPHATASE U/L -- -- -- -- -- 97 -- -- 121* BILIRUBIN TOTAL mg/dL -- -- -- -- -- 0.9 -- -- 0.6 ALBUMIN g/dL 2.0* 2.1* 2.1* 2.0* 1.9* 1.7* 1.7* 2.1* < > 2.1* 2.1* < > = values in this interval not displayed. Nutrition Labs: Lab Results Component Value Date TRIG 76 05/19/2024 BILITOT 0.9 05/23/2024 ALBUMIN 2.0 (L) 05/29/2024 PREALBUMIN 6.5 (L) 05/09/2024 HGBA1C 5.3 05/01/2024 CRP 225.3 (H) 05/17/2024 IRON 25 (L) 05/14/2024 TIBC 156 (L) 05/14/2024 Microbiology Results Procedure Component Value Units Date/Time Blood Culture (Aerobic/Anaerobet Set) [[id number]] Collected: 05/23/24 1020 Order Status: Completed Specimen: Blood, Venous Updated: 05/24/24 1101 Culture No growth at day 1 Fungal Blood Culture [[id number]] Collected: 05/17/24 1813 Order Status: Completed Specimen: Blood, Venous Updated: 05/24/24 0638 Culture No Fungal Growth at 1 Week AFB Blood Culture [[id number]] Collected: 05/17/24 181 Order Status: Completed Specimen: Blood, Venous Updated: 05/24/24637 AFB Culture No Mycobacterial Growth at 1 Week Vitals: Visit Vitals BP 128/77 Pulse 88 Temp 37.4 ??C (99.3 ??F) Resp 20 [place] Coma Scale Score: 15 [place] Scale Score: 15 Oxygen Therapy: None (Room air) Skin Integrity: Bruising Edema: Generalized Wt Readings from Last 3 Encounters: 05/26/24 62.2 kg (137 lb 2 oz) 06/28/23 59 kg (130 lb) 04/26/23 62.6 kg (138 lb) Current Diet Order: Dietary Orders (From admission, onward) Start Ordered 05/28/241658 Adult diet Diet texture: Regular; Carbohydrate restriction: Consistent Carb 2 (80 gm max/meal); Fat restriction: Cardiac (Adult Diet Panel) Diet effective now References: IDDSI Diet Texture Guide Question Answer Comment Diet texture Regular Carbohydrate restriction: Consistent Carb 2 (80 gm max/meal) Fat restriction: Cardiac 05/28/241658 Current Medications acetaminophen, 500 mg, Oral, q6h LINDA aspirin, 81 mg, Oral, Daily buPROPion, 150 mg, Oral, BID citalopram, 40 mg, Oral, Daily fat emulsion fish/plant based, 250 mL, Intravenous, Every other day heparin (porcine), 5,000 Units, Subcutaneous, q8h lidocaine, 2 patch, Apply externally, q24h methocarbamol, 500 mg, Oral, TID metoprolol tartrate, 25 mg, Oral, BID primidone, 50 mg, Oral, BID rosuvastatin, 40 mg, Oral, Nightly sodium chloride, 10 mL, Intravenous, q12h Adult 2-in-1 TPN, 35 mL/hr, Last Rate: 35 mL/hr (05/28/24 2200) Current Anthropometrics: Height: 154.9 cm (5' 0.98 ) Weight: 61.1 kg (134 lb 12.8 oz) [place] body weight: 47.8 kg (105 lb 4.8 oz) Adjusted ideal body weight: 52.8 kg (116 lb 5.7 oz) (126.25%) of IBW Body mass index is 25.13 kg/m??. Adjusted wt: 50.9 kg (if over 125% of IBW) CENTRAL IV Access: PICC (05/18/24) Estimated Nutritional Needs: HBE: 1153 Stress Factor: 1.2-1.4 Total Calories/day: 2154-6064 Protein (amino acids): 1.3-1.6 grams/kg Protein (Amino acids): 66-81 grams/day Measured Energy Needs: Respiratory Quotient: 05/29/2024 Plan/Recommendation: Labs reviewed. Continue half-rate TPN; increased rate to 40 mL/hr and adjusted contents accordingly. Will continue to monitor. HALF-RATE TPN: DEXTROSE: 15% (144 g/day CHO) AMINO ACIDS: 5% (48 g/day) Cl:A 1:3, K @ 30 mEq/L @ 40 ml/hr, with 30mg/day thiamine, MVI, and Trace elements Every other day 250ml 20% SMOF lipids Replace electrolytes outside of TPN Calcium and/or Phosphorus supplements MUST be in a separate line from the TPN to avoid precipitation Obtain BMP, magnesium, and Phos daily x 3days and then at least twice weekly Obtain LFT and TGLY weekly I have monitored the TPN therapy, including the labs, and have communicated any modifications with the primary medical/surgical team. Continue current TPN formula and lipid regimen as above. I have communicated the TPN plan with the IV room. Thank you, Db Kline, PharmD Candidate 2024 Preceptor - Moni Méndez, MagalieD [1] Patient Active Problem List Diagnosis Anxiety and depression COPD (chronic obstructive pulmonary disease) (CMS/HCC) CAD, multiple vessel NSTEMI (non-ST elevated myocardial infarction) ([facility]/HCC) GERD (gastroesophageal reflux disease) Leukocytosis Hyperlipidemia THOM (obstructive sleep apnea) S/P CABG x 4 Hypertension Cardiac volume overload Hypoglycemia Nausea with vomiting Acute blood loss anemia (ABLA) Gastric perforation (CMS/HCC) On total parenteral nutrition (TPN) Ileus (CMS/HCC) Electrolyte abnormality Colon perforation (CMS/HCC) Post-op pain [2] Past Medical History: Diagnosis Date Anxiety COPD (chronic obstructive pulmonary disease) (CMS/HCC) 05/01/2024 Continue Duo nebs q6 SPO2 goal >88% Depression GERD (gastroesophageal reflux disease) 05/01/2024 Continue Protonix 40 mg daily Hyperkalemia 05/06/2024 Now resolved, pt with hypokalemia requiring replacement On mechanically assisted ventilation (CMS/HCC) 05/06/2024 Arrived to ICU intubated 05/07 extubated to 4LNC 05/08 resolved Tobacco use 05/01/2024 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 Complicates all aspects of care and recovery Tremor 05/01/2024 Continue home primidone 50 mg BID [3] Past Surgical History: Procedure Laterality Date ABDOMINAL ADHESION SURGERY SECTION, CLASSIC CHOLECYSTECTOMY CORONARY ARTERY BYPASS GRAFT 05/06/2024 Coronary artery bypass grafting x4 with CHOWDARY to LAD as a free graft, reverse saphenous vein graft sequential to ramus intermedius artery then to obtuse marginal artery 1, reverse saphenous vein graftto PDA.(Reda) HAND SURGERY Right Tendon repair SHOULDER SURGERY Cosigned by Moni Méndez, PharmD at 05/29/2024 3:01 PM EDT Associated attestation - Moni Méndez PharmD - 05/29/2024 3:01 PM EDT I have reviewed the students assessment and plan and agree with the below statements * Progress Notes - Sundeep Newsome MD - 05/29/2024 8:11 AM EDT CARDIOTHORACIC SURGERY PROGRESS NOTE SUBJECTIVE Acute Events/Last 24 Hrs: Did not sleep well overnight with increasing delirium this AM. Advancing diet per general surgery. NSR on room air. AUOP. Colostomy with stool output. OBJECTIVE All laboratory data, images, tracings, and vital sign data for past 24 hours are personally reviewed unless otherwise noted. Physical Exam VITALS (last 24h) 05/29/2024 12:00 AM 05/29/2024 1:00 AM 05/29/2024 2:00 AM 05/29/2024 3:00 AM 05/29/2024 4:00 AM 05/29/2024 5:00 AM 05/29/2024 8:09 AM Vitals Systolic 119 117 115 113 130 128 Diastolic 76 74 73 76 80 77 Heart Rate 82 88 87 87 89 90 88 Temp 37.7 C 37.7 C 37.6 C 37.4 C 37.4 C 37.4 C Resp 22 17 19 22 19 20 General: alert and oriented, no acute distress, resting in bed HEENT: normocephalic, atraumatic, NC in place Eyes: no scleral icterus, normal conjunctiva Neck: supple, no trachea deviation Lungs: symmetric chest rise, non-labored breathing Heart: rrr on monitor Abdomen: soft, tender to palpation, abdominal drains with serosanguinous output and dressings c/d/I, colostomy pink and making stool Extremities: no peripheral edema Skin: no rash, no cyanosis and warm to touch Neuro: aaox4, no focal deficits Psychiatric: oriented to person/place/time and normal mood/affect Intake/Output Intake/Output Summary (Last 24 hours) at 05/29/2024 0811 Last data filed at 05/29/2024 0600 Gross per 24 hour Intake 730.59 ml Output 1480 ml Net -749.41 ml Results Labs in last 18 hours CBC WBC ?? Hb 9.3 (L) Plt 528 (H) Hct 28.9 (L) ANC ?? INR ??, PTT ??, Anti-Xa ?? BMP Na 132 (L) Cl 97 BUN 13 Glu 104 (H) K 4.0 Co2 25 Cr 0.58 (L) Ca 8.3 (L) iCa ?? Mg 2.1, Phos 4.1 Lactate ?? LFT AST ?? AlkPhos ?? T Prot ?? ALK ?? Bili ?? Alb ?? D.Bili ?? Imaging No echocardiogram results found for the past 14 days No valid procedures specified. ASSESSMENT & PLAN Principal Problem: CAD, multiple vessel Active Problems: Anxiety and depression COPD (chronic obstructive pulmonary disease) (CMS/HCC) NSTEMI (non-ST elevated myocardial infarction) (CMS/HCC) GERD (gastroesophageal reflux disease) Leukocytosis Hyperlipidemia THOM (obstructive sleep apnea) S/P CABG x 4 Hypertension Cardiac volume overload Hypoglycemia Nausea with vomiting Acute blood loss anemia (ABLA) Gastric perforation (CMS/HCC) On total parenteral nutrition (TPN) Ileus (CMS/HCC) Electrolyte abnormality Post-op pain Colon perforation (CMS/HCC) 53 yrs female who underwent 4v CABG on 05/06/[address] Austin. -ASA, statin, beta stacey -diet per blue surgery -drain care per blue surgery -minimize narcotics to help with confusion -DVT ppx -home meds as appropriate -continue 1/2 TPN until tolerating regular diet -continue ICU care -pt/ot, mobilize; need to walk in hallway as able Cardiothoracic Surgery 05/29/24 8:11 AM Cosigned by Maite Austin MD at 05/31/2024 6:34 PM EDT Associated attestation - Maite Austin MD - 05/31/2024 6:34 PM EDT I saw and evaluated the patient with the resident/fellow. I discussed the case with the resident/fellow and agree with the findings and plan as documented. * Procedures - Rambo Anguiano DO - 05/28/2024 6:10 PM EDTAssociated Order(s): Wound Vac Placement Post-Procedure Diagnose(s): Colon perforation (CMS/HCC) Wound Vac Placement Performed by: Rambo Anguiano DO Authorized by: Maite Austin MD Consent: Consent obtained: Verbal Consent given by: Patient DME Vac: Yes Procedure details: Foam Removed (Pieces): 1 Foam Placed (Pieces): 3 (two in wound, 1 bridge over closed portion of incision) Wound Appearance: Wound with healthy granulation tissue, central portion of incision near umbilicusclosed with sheridan Length (cm): 15 Width (cm): 4 Depth (cm): 1.5 Calc Area (square cm): 60 Foam Applied: Black Polyurethane Foam Therapy: Continuous Pressure (mmHg): 125 Patient tolerance of procedure: Tolerated well, no immediate complications Cosigned by Graciela Nelson MD at 05/30/2024 10:44 PM EDT Associated attestation - Graciela Nelson MD - 05/30/2024 10:44 PM EDT I was present for the entirety of the procedure(s). * Progress Notes - Gregg Burdikc MD - 05/28/2024 11:39 AM EDTAssociated Order(s): Critical Care Post-Procedure Diagnose(s): S/P CABG x 4; CAD, multiple vessel Critical Care Performed by: Gregg Burdick MD Authorized by: Gregg Burdick MD Critical care provider statement: Critical care time (minutes): 40 Critical care time was exclusive of: Separately billable procedures and treating other patients andteaching time Critical care was time spent personally by me on the following activities: Development of treatmentplan with patient or surrogate, discussions with consultants, discussions with primary provider, evaluation of patient's response to treatment, examination of patient, obtaining history from patient or surrogate, ordering and performing treatments and interventions, ordering and review of laboratory studies and ordering and review of radiographic studies I assumed subsequent critical care for this patient from a provider in my division, on the same day: yes Critical care statement: I saw and evaluated the patient with the resident/ fellow. I discussed thecase with the resident/ fellow and agree with the findings and plan as documented. 05/28/24 Rere Hunter HPI Rere Hunter is a 53 y.o. female who presents with CAD, multiple vessel. If applicable, patient is s/p Procedure(s) and Anesthesia Type: Panel 1: * LAPAROTOMY, EXPLORATORY, possible bowel resection, possible ostomy - General Panel 2: * COLECTOMY, PARTIAL. Patient is 5 Days Post-Op with General Surgery. Past 24 hours: PM: Simethicone PRN. KUB ordered, no significant gas burden or ileus. AM: Tolerating CLD well. Advance diet to FLD. Obtain calorie count, will wean TPN as able. Encourage ambulation. Edited by: Sidney Jackson MD at 05/28/2024 1136 Lines/Drains/Tubes: Patient Lines/Drains/Airways Status Active Active LDAs Name Placement date Placement time Site Days PICC Double Lumen 05/19/24 Left Basilic vein 05/19/24 0050 Basilic vein 9 Peripheral IV 05/12/24 Anterior;Left Forearm 05/12/24 0030 Forearm 16 Peripheral IV 05/23/24 Left Hand 05/23/24 1440 Hand 4 Closed/Suction Drain 1 Inferior;Left Abdomen Bulb 19 Fr. 05/23/24 1714 Abdomen 4 Closed/Suction Drain 1 Left Abdomen Bulb 19 Fr. 05/23/24 1714 Abdomen 4 Colostomy Transverse RUQ 05/23/24 -- RUQ 5 Urethral Catheter Non-latex;Single lumen;Temperature probe 16 Fr. 05/23/24 1355 -- 4 Negative Pressure Wound Therapy Abdomen Lower;Upper;Mid 05/23/24 1757 Abdomen 4 GCS: Jaida Coma Scale Score: 15 Review of Systems 14 point ROS reviewed and otherwise negative or unobtainable except as noted above or in HPI. Vital signs: Vitals: 05/28/24 0600 BP: 138/81 Pulse: 90 Resp: 20 Temp: 36.8 ??C (98.2 ??F) SpO2: 92% Intake/Output Summary (Last 24 hours) at 05/28/2024 1140 Last data filed at 05/28/2024 0600 Gross per 24 hour Intake 1335 ml Output 1385 ml Net -50 ml Physical Exam: Sedation was held for the purposes of examination. Physical Exam Vitals reviewed. Constitutional: General: She is not in acute distress. HENT: Head: Normocephalic and atraumatic. Mouth/Throat: Mouth: Mucous membranes are dry. Pharynx: Oropharynx is clear. Eyes: General: Vision grossly intact. Extraocular Movements: Extraocular movements intact. Pupils: Pupils are equal, round, and reactive to light. Cardiovascular: Pulses: Normal pulses. Comments: No unanticipated findings. Pulmonary: Effort: Pulmonary effort is normal. Breath sounds: Normal air entry. Comments: No unanticipated findings. Abdominal: Palpations: Abdomen is soft. There is no mass. Tenderness: There is abdominal tenderness (Tender in upper abdomen > lower abdomen). Comments: Stoma well-appearing. Midline incision wound vac in place. Musculoskeletal: General: No deformity. Normal range of motion. Cervical back: Normal range of motion. No rigidity. Skin: General: Skin is warm and dry. Neurological: General: No focal deficit present. Mental Status: She is alert, oriented to person, place, and time and easily aroused. Mental status is at baseline. Psychiatric: Behavior: Behavior normal. Behavior is cooperative. Labs in last 18 hours: CBC WBC 25.00 (H) Hb 9.7 (L) Plt 442 (H) Hct 30.1 (L) ANC 18.75 (H) INR ??, PTT ??, Anti-Xa ?? BMP Na 137 Cl 102 BUN 15 Glu 106 (H) K 4.3 Co2 26 Cr 0.66 Ca 8.2 (L) iCa ?? Mg 1.9, Phos 3.8 Lactate ?? LFT AST ?? AlkPhos ?? T Prot ?? ALK ?? Bili ?? Alb ?? D.Bili ?? Imaging as available: === 05/01/24 === XR CHEST 1 VIEW - Narrative - CLINICAL INDICATION: evaluation TECHNIQUE: XR CHEST 1 VIEW COMPARISON: May 24, 2024 FINDINGS: Stable support hardware. Stable cardiomediastinal silhouette. No new consolidation. Persistent layering left-sided pleural effusion. No pneumothorax. - Impression - No significant interval changes. CRITICAL RESULT: No. COMMUNICATION: Per this written report. By electronically signing this report, I, the attending physician, attest that I have personally reviewed the images/data for the above examination(s) and agree with the final edited report. Drafted by Mino Hobbs MD on 05/25/2024 8:09 AM Final report signed by Champ Oden MD on 05/25/2024 8:59 AM Reviewed and agree with above. Assessment and Plan: This patient is critically ill. Medical Problems and Relevant Plans Hospital Problems POA * (Principal) CAD, multiple vessel Yes Overview Addendum 05/23/2024 8:44 AM by Marybel Suarez, AUTOMOTIVE PORTER Patient presented to OSH on 05/01/24 c/o chest pain, LHC reveal mvCAD S/p CABG with Dr. Austin on 05/07 Anxiety and depression Yes Overview Addendum 05/23/2024 8:43 AM by Marybel Suarez, AUTOMOTIVE PORTER Continue home bupropion XL 300 mg daily Continue home citalopram 40 mg daily Continue PRN hydroxyzine 25 mg q6 COPD (chronic obstructive pulmonary disease) ([facility]) Yes Overview Addendum 05/23/2024 8:43 AM by Marybel Suarez, AUTOMOTIVE PORTER Duo nebs q6 Wean O2 for SPO2 goal >88% NSTEMI (non-ST elevated myocardial infarction) ([facility]) Yes Overview Addendum 05/22/2024 11:00 AM by Jose Aburto MD Diagnosed at OSH with elevated troponins of 0.05 to 0.23 to 0.16 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, 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 Repeat troponins pending 05/07 POD 1 4V CABG 05/09 EKG ordered and reviewed no signs of ST changes 05/10 ST 105 05/11 ST 100-105 GERD (gastroesophageal reflux disease) Yes Overview Addendum 05/14/2024 2:06 PM by Cydney Luu MD Continue Protonix 40 mg daily 05/07 extubated, no on home PPI dc'd 05/08 pt denies any GERD symptoms 05/09 + PPI for reflux 05/10 docusate, metoclopramide, miralax, senna, simethicone, continue NG to low intermitted, CLD forpt comfort, passing gas 05/11 as above denies reflux today NG clamp trial 05/14 PPI per blue surgery rec for blood tinged NG output Leukocytosis Yes Overview Addendum 05/23/2024 8:50 AM by Marybel Suarez, AUTOMOTIVE PORTER Remains febrile with elevated EBC Cultures ordered and pending Hyperlipidemia Yes Overview Signed 05/23/2024 8:47 AM by Marybel Suarez, AUTOMOTIVE PORTER Restart statin when no longer NPO THOM (obstructive sleep apnea) Yes Overview Addendum 05/23/2024 8:45 AM by Marybel Suarez, AUTOMOTIVE PORTER Refusing home CPAP remains on NC S/P CABG x 4 Not Applicable Overview Addendum 05/23/2024 8:45 AM by Marybel Suarez, 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 Austin Aspirin, statin, beta stacey as clinically appropriate Hypertension Yes Overview Addendum 05/23/2024 8:47 AM by Marybel Suarez, AUTOMOTIVE PORTER Metop IV while NPO Restart PO metop when appropriate Cardiac volume overload No Overview Addendum 05/18/2024 10:24 AM by Sidney Jackson MD Diuresis as clinically indicated Hypoglycemia No Overview Addendum 05/23/2024 8:46 AM by Marybel Suarez APRN Resolved once TPN started Nausea with vomiting No Overview Addendum 05/28/2024 8:26 AM by Sidney Jackson MD TPN running Advance PO diet as able Acute blood loss anemia (ABLA) No Overview Addendum 05/23/2024 8:43 AM by Marybel Suarez APRN Lab Results Component Value Date HGB 9.0 (L) 05/23/2024 CTM with daily labs Transfuse as indicated Gastric perforation (CMS/HCC) No Overview Addendum 05/28/2024 8:26 AM by Sidney Jackson MD colonic perforation. S/p ex lap with blue surgery on 05/23 On total parenteral nutrition (TPN) No Overview Signed 05/21/2024 9:26 AM by Reyna Mcdonald APRN Started on 05/20 Ileus (CMS/HCC) No Overview Addendum 05/28/2024 8:25 AM by Sidney Jackson MD S/p colectomy & end colostomy 05/23 2/2 perforation Electrolyte abnormality Yes Overview Signed 05/23/2024 8:50 AM by Marybel Suarez APRN - monitor and replace prn Post-op pain Unknown Overview Addendum 05/25/2024 10:12 AM by Dave Baird, DO Abdominal tenderness and pain 11/23 Increase dilaudid IV ketamine Colon perforation (CMS/HCC) Unknown Overview Addendum 05/24/2024 11:04 AM by Jose Aburto MD Noted on CT scan 05/23/24 To OR with blue surgery S/p left colectomy and end colostomy Sidney Jackson MD * Progress Notes - Luis Starkey MD - 05/28/2024 9:44 AM EDT CARDIOTHORACIC SURGERY PROGRESS NOTE SUBJECTIVE Acute Events/Last 24 Hrs: on RA. Colostomy pink, making stool. Remains on TPN. Walked in room. Tolerating some sips of liquids. OBJECTIVE All laboratory data, images, tracings, and vital sign data for past 24 hours are personally reviewed unless otherwise noted. Physical Exam VITALS (last 24h) 05/28/2024 12:00 AM 05/28/2024 1:00 AM 05/28/2024 2:00 AM 05/28/2024 3:00 AM 05/28/2024 4:00 AM 05/28/2024 5:00 AM 05/28/2024 6:00 AM Vitals Systolic 125 118 106 110 130 141 138 Diastolic 72 82 77 76 79 86 81 Heart Rate 86 87 86 88 85 87 90 Temp 37.2 C 37.2 C 37.0 C 36.9 C 36.8 C 36.9 C 36.8 C Resp 20 16 18 16 17 20 20 O2 Delivery Method: Nasal cannula General: alert and oriented, no acute distress, resting in bed HEENT: normocephalic, atraumatic, NC in place Eyes: no scleral icterus, normal conjunctiva Neck: supple, no trachea deviation Lungs: symmetric chest rise, non-labored breathing Heart: rrr on monitor Abdomen: soft, tender to palpation, abdominal drains with serosanguinous output and dressings c/d/I, colostomy pink and making stool Extremities: no peripheral edema Skin: no rash, no cyanosis and warm to touch Neuro: aaox4, no focal deficits Psychiatric: oriented to person/place/time and normal mood/affect Intake/Output Intake/Output Summary (Last 24 hours) at 05/28/2024 0944 Last data filed at 05/28/2024 0600 Gross per 24 hour Intake 1535 ml Output 1685 ml Net -150 ml Results Labs in last 18 hours CBC WBC 25.00 (H) Hb 9.7 (L) Plt 442 (H) Hct 30.1 (L) ANC 18.75 (H) INR ??, PTT ??, Anti-Xa ?? BMP Na 137 Cl 102 BUN 15 Glu 106 (H) K 4.3 Co2 26 Cr 0.66 Ca 8.2 (L) iCa ?? Mg 1.9, Phos 3.8 Lactate ?? LFT AST ?? AlkPhos ?? T Prot ?? ALK ?? Bili ?? Alb ?? D.Bili ?? Imaging No echocardiogram results found for the past 14 days No valid procedures specified. ASSESSMENT & PLAN Principal Problem: CAD, multiple vessel Active Problems: Anxiety and depression COPD (chronic obstructive pulmonary disease) (CMS/HCC) NSTEMI (non-ST elevated myocardial infarction) (CMS/HCC) GERD (gastroesophageal reflux disease) Leukocytosis Hyperlipidemia THOM (obstructive sleep apnea) S/P CABG x 4 Hypertension Cardiac volume overload Hypoglycemia Nausea with vomiting Acute blood loss anemia (ABLA) Gastric perforation (CMS/HCC) On total parenteral nutrition (TPN) Ileus (CMS/HCC) Electrolyte abnormality Post-op pain Colon perforation (CMS/HCC) 53 yrs female who underwent 4v CABG on 05/06/[address] Austin. -ASA -diet per blue surgery -drain care per blue surgery -DVT ppx -oral meds -metop -home meds as appropriate -continue TPN -continue ICU care -pt/ot, mobilize Cardiothoracic Surgery 05/28/24 9:44 AM Cosigned by Maite Austin MD at 05/31/2024 6:34 PM EDT Associated attestation - Maite Austin MD - 05/31/2024 6:34 PM EDT I saw and evaluated the patient with the resident/fellow. I discussed the case with the resident/fellow and agree with the findings and plan as documented. * Progress Notes - Iman Massey MD - 05/28/2024 9:41 AM EDT Surgical ICU Daily Progress Note 05/28/24 Rere Hunter HPI 53F with history of HTN, HLD, COPD, GERD, tobacco use, and CAD s/p 4v CABG on 05/06 complicated by post-op ileus. SGE consulted for contained perforation (stomach versus colon) seen on CT. Interval CTscan showed progression of fluid collection between the stomach and colon, with contrast in the collection suggesting colonic perforation. 05/23: exploratory laparotomy, extended left colectomy and end colostomy creation for colonic perforation. Interval: POD#5. AF, VSS. On 1.5L via NC. She is eating jello without difficulty this am, denies emesis. Ostomy with increasing output. Jpx2 with thin sanguinous output. WBC downtrending Edited by: Iman Massey MD at 05/28/2024 0941 Relevant review of systems was obtained as able and is negative unless stated above in HPI. Vital signs: Visit Vitals BP 138/81 Pulse 90 Temp 36.8 ??C (98.2 ??F) Resp 20 Ht 1.549 m (5' 0.98 ) Wt 62.2 kg (137 lb 2 oz) SpO2 92% BMI 25.92 kg/m?? Smoking Status Every Day BSA 1.64 m?? Intake/Output Summary (Last 24 hours) at 05/28/2024 1115 Last data filed at 05/28/2024 0600 Gross per 24 hour Intake 1335 ml Output 1385 ml Net -50 ml Physical Exam: Physical Exam Constitutional: General: She is not in acute distress. HENT: Head: Normocephalic. Eyes: Conjunctiva/sclera: Conjunctivae normal. Cardiovascular: Rate and Rhythm: Normal rate and regular rhythm. Pulmonary: Effort: Pulmonary effort is normal. No respiratory distress. Abdominal: General: There is no distension. Tenderness: There is abdominal tenderness (mild generalized). Comments: WV c/d/I. LENA drain x2 with thin bloody output. Ostomy with good brown OP Skin: General: Skin is warm and dry. Neurological: General: No focal deficit present. Mental Status: She is alert and oriented to person, place, and time. Lines/Drains/Tubes: Patient Lines/Drains/Airways Status Active Airway None O2 Delivery Method: Nasal cannula Output by Drain (mL) 05/26/24 0700 - 05/26/24 1859 05/26/24 190 - 05/27/24 0659 05/27/24 0700 - 05/27/24 1859 05/27/24 1900 - 05/28/24 0659 05/28/24 07 - 05/28/24 1115 Closed/Suction Drain 1 Inferior;Left Abdomen Bulb 19 Fr. 30 45 Closed/Suction Drain 1 Left Abdomen Bulb 19 Fr. 40 35 40 Labs in last 18 hours: CBC WBC 25.00 (H) Hb 9.7 (L) Plt 442 (H) Hct 30.1 (L) ANC 18.75 (H) INR ??, PTT ??, Anti-Xa ?? BMP Na 137 Cl 102 BUN 15 Glu 106 (H) K 4.3 Co2 26 Cr 0.66 Ca 8.2 (L) iCa ?? Mg 1.9, Phos 3.8 Lactate ?? LFT AST ?? AlkPhos ?? T Prot ?? ALK ?? Bili ?? Alb ?? D.Bili ?? Lab Trends: H/H Results from last 7 days Lab Units 05/28/24 0047 05/27/24 0454 05/26/24 0327 HEMOGLOBIN g/dL 9.7* 9.5* 7.1* HEMATOCRIT % 30.1* 29.8* 22.4* INR Results from last 7 days Lab Units 05/23/24 1241 INR 1.0 Cr Results from last 7 days Lab Units 05/28/24 0047 05/27/24 0454 05/26/24 0327 CREATININE mg/dL 0.66 0.71 0.73 Medications reviewed. Vital signs reviewed. Labs reviewed. Radiography reviewed. Assessment and Plan: Medical Problems and Relevant Plans Hospital Problems POA * (Principal) CAD, multiple vessel Yes Overview Addendum 05/23/2024 8:44 AM by Marybel Suarez APRN Patient presented to OSH on 05/01/24 c/o chest pain, C reveal mvCAD S/p CABG with Dr. Austin on 05/07 Anxiety and depression Yes Overview Addendum 05/23/2024 8:43 AM by Marybel Suarez APRN Continue home bupropion XL 300 mg daily Continue home citalopram 40 mg daily Continue PRN hydroxyzine 25 mg q6 COPD (chronic obstructive pulmonary disease) ([facility] [place]) Yes Overview Addendum 05/23/2024 8:43 AM by Marybel Suarez APRN Duo nebs q6 Wean O2 for SPO2 goal >88% NSTEMI (non-ST elevated myocardial infarction) ([facility] [place]) Yes Overview Addendum 05/22/2024 11:00 AM by Jose Aburto MD Diagnosed at OSH with elevated troponins of 0.05 to 0.23 to 0.16 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, 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 Repeat troponins pending 05/07 POD 1 4V CABG 05/09 EKG ordered and reviewed no signs of ST changes 05/10 ST 105 05/11 ST 100-105 GERD (gastroesophageal reflux disease) Yes Overview Addendum 05/14/2024 2:06 PM by Cydney Luu MD Continue Protonix 40 mg daily 05/07 extubated, no on home PPI dc'd 05/08 pt denies any GERD symptoms 05/09 + PPI for reflux 05/10 docusate, metoclopramide, miralax, senna, simethicone, continue NG to low intermitted, CLD forpt comfort, passing gas 05/11 as above denies reflux today NG clamp trial 05/14 PPI per blue surgery rec for blood tinged NG output Leukocytosis Yes Overview Addendum 05/23/2024 8:50 AM by Marybel Suarez, ARASH Remains febrile with elevated EBC Cultures ordered and pending Hyperlipidemia Yes Overview Signed 05/23/2024 8:47 AM by Marybel Suarez, AUTOMOTIVE PORTER Restart statin when no longer NPO THOM (obstructive sleep apnea) Yes Overview Addendum 05/23/2024 8:45 AM by Marybel Suarez, AUTOMOTIVE PORTER Refusing home CPAP remains on NC S/P CABG x 4 Not Applicable Overview Addendum 05/23/2024 8:45 AM by Marybel Suarez, ARASH 05/06 4vCABG w/ Dr. Austin Aspirin, statin, beta stacey as clinically appropriate Hypertension Yes Overview Addendum 05/23/2024 8:47 AM by Marybel Suarez, AUTOMOTIVE PORTER Metop IV while NPO Restart PO metop when appropriate Cardiac volume overload No Overview Addendum 05/18/2024 10:24 AM by Sidney Jackson MD Diuresis as clinically indicated Hypoglycemia No Overview Addendum 05/23/2024 8:46 AM by Marybel Suarez, AUTOMOTIVE PORTER Resolved once TPN started Nausea with vomiting No Overview Addendum 05/28/2024 8:26 AM by Sidney Jackson MD TPN running Advance PO diet as able Acute blood loss anemia (ABLA) No Overview Addendum 05/23/2024 8:43 AM by Marybel Suarez, AUTOMOTIVE PORTER Lab Results Component Value Date HGB 9.0 (L) 05/23/2024 CTM with daily labs Transfuse as indicated Gastric perforation (CMS/HCC) No Overview Addendum 05/28/2024 8:26 AM by Sidney Jackson MD colonic perforation. S/p ex lap with blue surgery on 05/23 On total parenteral nutrition (TPN) No Overview Signed 05/21/2024 9:26 AM by Reyna Mcdonald APRN Started on 05/20 Ileus (CMS/HCC) No Overview Addendum 05/28/2024 8:25 AM by Sidney Jackson MD S/p colectomy & end colostomy 05/23 2/2 perforation Electrolyte abnormality Yes Overview Signed 05/23/2024 8:50 AM by Marybel Suarez, ARASH - monitor and replace prn Post-op pain Unknown Overview Addendum 05/25/2024 10:12 AM by Dave Baird DO Abdominal tenderness and pain 11/23 Increase dilaudid IV ketamine Colon perforation (CMS/HCC) Unknown Overview Addendum 05/24/2024 11:04 AM by Jose Aburto MD Noted on CT scan 05/23/24 To OR with blue surgery S/p left colectomy and end colostomy To Do: - advance diet as tolerated - TPN, can do calorie count or wait until tolerates regular diet before discontinuing - PPI - Will continue to follow LENA output - Will take down wound vac today Edited by: Iman Massey MD at 05/28/2024 1115 Iman Massey MD Procedures Cosigned by Graciela Nelson MD at 06/03/2024 2:02 AM EDT Associated attestation - Graciela Nelson MD - 06/03/2024 2:02 AM EDT I saw and evaluated the patient with the resident/fellow. I discussed the case with the resident/fellow and agree with the findings and plan as documented. * Consults - Garrett Ruiz - 05/28/2024 9:34 AM EDT 05/28: Calorie count consult received. Sign hung on patient door in progress 05/28 - 05/30 RN: Please document percent of all PO food, drink, and supplement intake for the active dates in Epic under the I/O-Calorie Count section in the flow sheet. If no PO food consumed for a particular meal, please document 0% of meal . Results to follow. Garrett Ruiz DTR * Progress Notes - Heather Ram - 05/28/2024 9:05 AM EDT Case Management Adult Progress Note Rere Hunter 53 y.o. female CSN: [id number] Admission: 05/01/2024 11:01 PM Primary Problem: CAD, multiple vessel Anticipated Discharge Date: TBD Has Discharge Plans Changed? No Housing Circumstances: Not Applicable Housing Circumstances Action Taken: Other N/A Additional Comments SW reviewed chart for case updates. Pt is s/p 4v CABG on 05/06/24 and remains in an ICU-level of care. Pt is on TPN and has a new colostomy. Per MD, pt is not medically ready for DC this date. See medical notes for more detail. No further SW concerns identified at this time. SW will monitor pt's progress and will follow up with DC planning and needs as appropriate. NAYA Albarran * Progress Notes - Db Kline - 05/28/2024 7:32 AM EDT Pharmacist TPN Progress Note Patient: Rere Hunter Age: 53 y.o. Admission Date: [id number] Subjective/Objective/Hospital Course: 53 y.o. female with PMHx of CAD, HTN, COPD, GERD, tremor, anxiety, depression, and tobacco use, who is currently hospitalized under the care of the CVT surgery team after having a CABG on 05/06/24. Since surgery she has developed nausea, vomiting, and abdominal pain with imaging findings consistent with ileus. Patient has had inadequate energy intake likely related to ileus and has been NPO x [address] 05/20 showed intraabdominal fluid adjacent to stomach concerning for possible perforation. UGI with no perforartion. TPN consult for ileus + possible leak. 05/17: TPN consult placed 05/19: TPN initiated 05/23: CT overnight with PO contrast more convincing for colonic perforation instead of stomach perf. OR with general surgery for left hemicolectomy and colostomy creation. 05/25: CLD ordered late afternoon 05/28: FLD ordered Problem List[1] Medical History[2] Surgical History[3] Allergies: Latex and Oxycodone LABS: Results from last 7 days Lab Units 05/28/24 0047 05/27/24 0454 05/26/24 0327 05/25/24 0245 05/24/24 1018 05/23/24 1954 05/23/24 1939 05/23/24 1414 05/23/24 1300 05/23/24 1140 05/23/24 0540 05/23/24 0115 05/22/24 1850 05/22/24 1132 GLUCOSE mg/dL 106* 127* 122* 126* 182* -- 280* 280* -- 136* -- 117* 110* 110* 126* 143* BUN mg/dL 15 16 17 20 28* -- 20 20 -- 13 -- 12 13 13 13 13 CREATININE mg/dL 0.66 0.71 0.73 0.91 1.18* -- 1.06 1.06 -- 0.68 -- 0.69 0.67 0.67 0.66 0.62 SODIUM mmol/L 137 134* 136 138 137 -- 137 137 -- 137 -- 136 136 136 136 138 POTASSIUM mmol/L 4.3 4.1 4.5 5.0* 5.0* -- 5.5* 5.5* -- 4.2 -- 4.2 4.0 4.0 3.7 3.9 CHLORIDE mmol/L 102 99 104 107 106 -- 107 107 -- 104 -- 104 103 103 102 104 CO2 mmol/L 26 26 24 25 21* -- 20* 20* -- 25 -- 24 25 25 26 25 CALCIUM mg/dL 8.2* 8.4* 7.8* 7.7* 8.1* -- 7.5* 7.5* -- 7.7* -- 7.7* 7.9* 7.9* 7.7* 7.9* CALCIUM IONIZED WB mg/dL -- -- -- -- -- 4.2* -- 4.4* -- 4.3* 4.3* 4.2* 4.2* 4.4* PHOSPHORUS mg/dL 3.8 4.7* 4.0 3.5 -- -- 6.4* -- 4.1 -- 3.9 3.4 3.6 3.5 MAGNESIUM mg/dL 1.9 2.1 2.1 2.4 2.7* -- 1.8* -- 2.1 -- 2.0 1.9 2.0 2.0 Results from last 7 days Lab Units 05/28/24 0047 05/27/24 0454 05/26/24 0327 05/25/24 2032 05/25/24 1355 05/25/24 0811 05/25/24 0245 05/24/24 1018 05/23/24 1939 WBC 10*3/uL 25.00* 30.77* 34.71* -- -- 41.23* 41.90* 35.21* 32.33* HEMOGLOBIN g/dL 9.7* 9.5* 7.1* 7.2* 7.4* 7.2* 7.5* 8.7* 11.1* HEMATOCRIT % 30.1* 29.8* 22.4* 23.1* 23.6* 22.4* 23.1* 26.8* 34.2 PLATELETS 10*3/uL 442* 413* 378* -- -- 373* 352 375* 497* Results from last 7 days Lab Units 05/28/24 0047 05/27/24 0454 05/26/24 0327 05/25/24 0245 05/23/24 1939 05/23/24 1300 05/23/24 0540 05/23/24 0115 05/22/24 1132 05/22/24 0613 ALT U/L -- -- -- -- 14 -- -- 14 -- 16 AST U/L -- -- -- -- 26 -- -- 29 -- 31 ALKALINE PHOSPHATASE U/L -- -- -- -- 97 -- -- 121* -- 112* BILIRUBIN TOTAL mg/dL -- -- -- -- 0.9 -- -- 0.6 -- 0.7 ALBUMIN g/dL 2.1* 2.1* 2.0* 1.9* 1.7* 1.7* 2.1* 1.8* 2.1* 2.1* < > 1.8* < > = values in this interval not displayed. Nutrition Labs: Lab Results Component Value Date TRIG 76 05/19/2024 BILITOT 0.9 05/23/2024 ALBUMIN 2.1 (L) 05/28/2024 PREALBUMIN 6.5 (L) 05/09/2024 HGBA1C 5.3 05/01/2024 CRP 225.3 (H) 05/17/2024 IRON 25 (L) 05/14/2024 TIBC 156 (L) 05/14/2024 Microbiology Results Procedure Component Value Units Date/Time Blood Culture (Aerobic/Anaerobet Set) [[id number]] Collected: 05/23/24 1020 Order Status: Completed Specimen: Blood, Venous Updated: 05/24/24 1101 Culture No growth at day 1 Fungal Blood Culture [[id number]] Collected: 05/17/241812 Order Status: Completed Specimen: Blood, Venous Updated: 05/24/24 0638 Culture No Fungal Growth at 1 Week AFB Blood Culture [[id number]] Collected: 05/17/241812 Order Status: Completed Specimen: Blood, Venous Updated: 05/24/2438 AFB Culture No Mycobacterial Growth at 1 Week Vitals: Visit Vitals BP 138/81 Pulse 90 Temp 36.8 ??C (98.2 ??F) Resp 20 Jaida Coma Scale Score: 15 Shaan Scale Score: 15 Oxygen Therapy: None (Room air) Skin Integrity: Bruising Edema: Generalized Wt Readings from Last 3 Encounters: 05/26/24 62.2 kg (137 lb 2 oz) 06/28/23 59 kg (130 lb) 04/26/23 62.6 kg (138 lb) Current Diet Order: Dietary Orders (From admission, onward) Start Ordered 05/25/24 1633 Adult diet Diet texture: Clear liquid (Adult Diet Panel) Diet effective now References: IDDSI Diet Texture Guide Question: Diet texture Answer: Clear liquid 05/25/24 1632 Current Medications acetaminophen, 500 mg, Oral, q6h LINDA aspirin, 81 mg, Oral, Daily buPROPion, 150 mg, Oral, BID citalopram, 40 mg, Oral, Daily fat emulsion fish/plant based, 250 mL, Intravenous, Every other day heparin (porcine), 5,000 Units, Subcutaneous, q8h lidocaine, 2 patch, Apply externally, q24h methocarbamol, 500 mg, Oral, TID metoprolol tartrate, 25 mg, Oral, BID oxyCODONE, 5 mg, Oral, q6h LINDA primidone, 50 mg, Oral, BID sodium chloride, 10 mL, Intravenous, q12h Adult 2-in-1 TPN, 35 mL/hr, Last Rate: 35 mL/hr (05/28/24 0000) Current Anthropometrics: Height: 154.9 cm (5' 0.98 ) Weight: 61.1 kg (134 lb 12.8 oz) [place] body weight: 47.8 kg (105 lb 4.8 oz) Adjusted ideal body weight: 52.8 kg (116 lb 5.7 oz) (126.25%) of IBW Body mass index is 25.13 kg/m??. Adjusted wt: 50.9 kg (if over 125% of IBW) CENTRAL IV Access: PICC (05/18/24) Estimated Nutritional Needs: HBE: 1153 Stress Factor: 1.2-1.4 Total Calories/day: 8176-5968 Protein (amino acids): 1.3-1.6 grams/kg Protein (Amino acids): 66-81 grams/day Measured Energy Needs: Respiratory Quotient: 05/28/2024 Plan/Recommendation: Labs reviewed. Continue goal TPN at half-rate (35 mL/hr) as below. Will continue to monitor. GOAL TPN: DEXTROSE: 18% (281 g/day CHO) AMINO ACIDS: 5% (78 g/day - 1.51 g/kg/day Amino acids) C:A 1:3, K @ 30 mEq/L @ 35 ml/hr, with 30mg/day thiamine, MVI, and Trace elements Every other day 250ml 20% SMOF lipids 1517 Total kcal/day - 29.8 kcal/kg/day GUR: 3.83 Replace electrolytes outside of TPN Calcium and/or Phosphorus supplements MUST be in a separate line from the TPN to avoid precipitation Obtain BMP, magnesium, and Phos daily x 3days and then at least twice weekly Obtain LFT and TGLY weekly I have monitored the TPN therapy, including the labs, and have communicated any modifications with the primary medical/surgical team. Continue current TPN formula and lipid regimen as above. I have communicated the TPN plan with the IV room. Thank you, Db Klien, PharmD Candidate 2024 Preceptor - Moni Méndez, MagalieD [1] Patient Active Problem List Diagnosis Anxiety and depression COPD (chronic obstructive pulmonary disease) (CMS/HCC) CAD, multiple vessel NSTEMI (non-ST elevated myocardial infarction) ([facility]/HCC) GERD (gastroesophageal reflux disease) Leukocytosis Hyperlipidemia THOM (obstructive sleep apnea) S/P CABG x 4 Hypertension Cardiac volume overload Hypoglycemia Nausea with vomiting Acute blood loss anemia (ABLA) Gastric perforation (CMS/HCC) On total parenteral nutrition (TPN) Ileus (CMS/HCC) Electrolyte abnormality Colon perforation (CMS/HCC) Post-op pain [2] Past Medical History: Diagnosis Date Anxiety COPD (chronic obstructive pulmonary disease) (CMS/HCC) 05/01/2024 Continue Duo nebs q6 SPO2 goal >88% Depression GERD (gastroesophageal reflux disease) 05/01/2024 Continue Protonix 40 mg daily Hyperkalemia 05/06/2024 Now resolved, pt with hypokalemia requiring replacement On mechanically assisted ventilation (CMS/HCC) 05/06/2024 Arrived to ICU intubated 05/07 extubated to 4LNC 05/08 resolved Tobacco use 05/01/2024 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 Complicates all aspects of care and recovery Tremor 05/01/2024 Continue home primidone 50 mg BID [3] Past Surgical History: Procedure Laterality Date ABDOMINAL ADHESION SURGERY SECTION, CLASSIC CHOLECYSTECTOMY CORONARY ARTERY BYPASS GRAFT 05/06/2024 Coronary artery bypass grafting x4 with CHOWDARY to LAD as a free graft, reverse saphenous vein graft sequential to ramus intermedius artery then to obtuse marginal artery 1, reverse saphenous vein graftto PDA.(Reda) HAND SURGERY Right Tendon repair SHOULDER SURGERY Cosigned by Moni Méndez PharmD at 05/28/2024 2:03 PM EDT Associated attestation - Moni Méndez PharmD - 05/28/2024 2:03 PM EDT I have reviewed the students assessment and plan and agree with the below statements * Progress Notes - Fawn Cardenas PharmD - 05/27/2024 1:47 PM EDT Pharmacist TPN Progress Note Patient: Rere Hunter Age: 53 y.o. Admission Date: [id number] Subjective/Objective/Hospital Course: 53 y.o. female with PMHx of CAD, HTN, COPD, GERD, tremor, anxiety, depression, and tobacco use, who is currently hospitalized under the care of the CVT surgery team after having a CABG on 05/06/24. Since surgery she has developed nausea, vomiting, and abdominal pain with imaging findings consistent with ileus. Patient has had inadequate energy intake likely related to ileus and has been NPO x [address] 05/20 showed intraabdominal fluid adjacent to stomach concerning for possible perforation. UGI with no perforartion. TPN consult for ileus + possible leak. 05/17: TPN consult placed 05/19: TPN initiated 05/23: CT overnight with PO contrast more convincing for colonic perforation instead of stomach perf. OR with general surgery for left hemicolectomy and colostomy creation. 05/25: CLD ordered late afternoon Problem List[1] Medical History[2] Surgical History[3] Allergies: Latex and Oxycodone LABS: Results from last 7 days Lab Units 05/27/24 0454 05/26/24 0327 05/25/24 0245 05/24/24 1018 05/23/24 1954 05/23/24 1939 05/23/24 1414 05/23/24 1300 05/23/24 1140 05/23/24 0540 05/23/24 0115 05/22/24 1850 05/22/24 1132 GLUCOSE mg/dL 127* 122* 126* 182* -- 280* 280* -- 136* -- 117* 110* 110* 126* 143* BUN mg/dL 16 17 20 28* -- 20 20 -- 13 -- 12 13 13 13 13 CREATININE mg/dL 0.71 0.73 0.91 1.18* -- 1.06 1.06 -- 0.68 -- 0.69 0.67 0.67 0.66 0.62 SODIUM mmol/L 134* 136 138 137 -- 137 137 -- 137 -- 136 136 136 136 138 POTASSIUM mmol/L 4.1 4.5 5.0* 5.0* -- 5.5* 5.5* -- 4.2 -- 4.2 4.0 4.0 3.7 3.9 CHLORIDE mmol/L 99 104 107 106 -- 107 107 -- 104 -- 104 103 103 102 104 CO2 mmol/L 26 24 25 21* -- 20* 20* -- 25 -- 24 25 25 26 25 CALCIUM mg/dL 8.4* 7.8* 7.7* 8.1* -- 7.5* 7.5* -- 7.7* -- 7.7* 7.9* 7.9* 7.7* 7.9* CALCIUM IONIZED WB mg/dL -- -- -- -- 4.2* -- 4.4* -- 4.3* 4.3* 4.2* 4.2* 4.4* PHOSPHORUS mg/dL 4.7* 4.0 3.5 -- -- 6.4* -- 4.1 -- 3.9 3.4 3.6 3.5 MAGNESIUM mg/dL 2.1 2.1 2.4 2.7* -- 1.8* -- 2.1 -- 2.0 1.9 2.0 2.0 Results from last 7 days Lab Units 05/27/2445305/26/2432605/25/24 20305/25/24 1355 05/25/24 0811 05/25/24 0245 05/24/24 1018 05/23/24 1939 05/23/24 0540 05/23/24 0115 WBC 10*3/uL 30.77* 34.71* -- -- 41.23* 41.90* 35.21* 32.33* -- 19.15* HEMOGLOBIN g/dL 9.5* 7.1* 7.2* 7.4* 7.2* 7.5* 8.7* 11.1* < > 9.5* HEMATOCRIT % 29.8* 22.4* 23.1* 23.6* 22.4* 23.1* 26.8* 34.2 < > 30.4* PLATELETS 10*3/uL 413* 378* -- -- 373* 352 375* 497* -- 558* < > = values in this interval not displayed. Results from last 7 days Lab Units 05/27/2445305/26/2432605/25/2424405/23/24193805/23/24 1300 05/23/24 0540 05/23/24 0115 05/22/24 1132 05/22/24 0613 05/21/24 0556 05/20/24 2348 ALT U/L -- -- -- 14 -- -- 14 -- 16 -- 22 AST U/L -- -- -- 26 -- -- 29 -- 31 -- 39* ALKALINE PHOSPHATASE U/L -- -- -- 97 -- -- 121* -- 112* -- 120* BILIRUBIN TOTAL mg/dL -- -- -- 0.9 -- -- 0.6 -- 0.7 -- 0.7 ALBUMIN g/dL 2.1* 2.0* 1.9* 1.7* 1.7* 2.1* 1.8* 2.1* 2.1* < > 1.8* < > 2.0* 2.0* < > = values in this interval not displayed. Nutrition Labs: Lab Results Component Value Date TRIG 76 05/19/2024 BILITOT 0.9 05/23/2024 ALBUMIN 2.1 (L) 05/27/2024 PREALBUMIN 6.5 (L) 05/09/2024 HGBA1C 5.3 05/01/2024 CRP 225.3 (H) 05/17/2024 IRON 25 (L) 05/14/2024 TIBC 156 (L) 05/14/2024 Microbiology Results Procedure Component Value Units Date/Time Blood Culture (Aerobic/Anaerobet Set) [[id number]] Collected: 05/23/24 1020 Order Status: Completed Specimen: Blood, Venous Updated: 05/24/24 1101 Culture No growth at day 1 Fungal Blood Culture [[id number]] Collected: 05/17/241812 Order Status: Completed Specimen: Blood, Venous Updated: 05/24/24 0638 Culture No Fungal Growth at 1 Week AFB Blood Culture [[id number]] Collected: 05/17/241812 Order Status: Completed Specimen: Blood, Venous Updated: 05/24/24 0638 AFB Culture No Mycobacterial Growth at 1 Week Vitals: Visit Vitals BP (!) 141/59 Pulse 88 Temp 37.4 ??C (99.3 ??F) (Bladder) Resp 14 Jaida Coma Scale Score: 14 Shaan Scale Score: 15 Oxygen Therapy: Supplemental oxygen Skin Integrity: Bruising Edema: Generalized Wt Readings from Last 3 Encounters: 05/26/24 62.2 kg (137 lb 2 oz) 06/28/23 59 kg (130 lb) 04/26/23 62.6 kg (138 lb) Current Diet Order: Dietary Orders (From admission, onward) Start Ordered 05/25/24 1633 Adult diet Diet texture: Clear liquid (Adult Diet Panel) Diet effective now References: IDDSI Diet Texture Guide Question: Diet texture Answer: Clear liquid 05/25/24 1632 Current Medications acetaminophen, 500 mg, Oral, q6h LINDA aspirin, 81 mg, Oral, Daily buPROPion, 150 mg, Oral, BID citalopram, 40 mg, Oral, Daily fat emulsion fish/plant based, 250 mL, Intravenous, Every other day heparin (porcine), 5,000 Units, Subcutaneous, q8h lidocaine, 2 patch, Apply externally, q24h methocarbamol, 500 mg, Oral, TID metoprolol tartrate, 25 mg, Oral, BID oxyCODONE, 5 mg, Oral, q6h LINDA piperacillin-tazobactam, 4.5 g, Intravenous, q6h primidone, 50 mg, Oral, BID sodium chloride, 10 mL, Intravenous, q12h Adult 2-in-1 TPN, 65 mL/hr, Last Rate: 65 mL/hr (05/27/24 1200) Current Anthropometrics: Height: 154.9 cm (5' 0.98 ) Weight: 61.1 kg (134 lb 12.8 oz) [place] body weight: 47.8 kg (105 lb 4.8 oz) Adjusted ideal body weight: 52.8 kg (116 lb 5.7 oz) (126.25%) of IBW Body mass index is 25.13 kg/m??. Adjusted wt: 50.9 kg (if over 125% of IBW) CENTRAL IV Access: PICC (05/18/24) Estimated Nutritional Needs: HBE: 1153 Stress Factor: 1.2-1.4 Total Calories/day: 6637-4077 Protein (amino acids): 1.3-1.6 grams/kg Protein (Amino acids): 66-81 grams/day Measured Energy Needs: Respiratory Quotient: 05/27/2024 Plan/Recommendation: Labs reviewed, per team will decrease to half rate with next bag GOAL TPN: DEXTROSE: 18% (281 g/day CHO) AMINO ACIDS: 5% (78 g/day - 1.51 g/kg/day Amino acids) C:A 1:3, K @ 30 mEq/L @ 65 ml/hr, with 30mg/day thiamine, MVI, and Trace elements Every other day 250ml 20% SMOF lipids 1517 Total kcal/day - 29.8 kcal/kg/day GUR: 3.83 Replace electrolytes outside of TPN Calcium and/or Phosphorus supplements MUST be in a separate line from the TPN to avoid precipitation Obtain BMP, magnesium, and Phos daily x 3days and then at least twice weekly Obtain LFT and TGLY weekly I have monitored the TPN therapy, including the labs, and have communicated any modifications with the primary medical/surgical team. Continue current TPN formula and lipid regimen as above. I have communicated the TPN plan with the IV room. Thank you, Fawn Cardenas, PharmD, BCCCP Trauma/Acute Care Surgery Pharmacist TPN Pharmacist available on [employer] Secure Chat [1] Patient Active Problem List Diagnosis Anxiety and depression COPD (chronic obstructive pulmonary disease) ([facility] [place]) CAD, multiple vessel NSTEMI (non-ST elevated myocardial infarction) ([facility] [place]) GERD (gastroesophageal reflux disease) Leukocytosis Hyperlipidemia THOM (obstructive sleep apnea) S/P CABG x 4 Hypertension Cardiac volume overload Hypoglycemia Nausea with vomiting Acute blood loss anemia (ABLA) Gastric perforation ([facility] [place]) On total parenteral nutrition (TPN) Ileus ([facility] [place]) Electrolyte abnormality Colon perforation ([facility] [place]) Post-op pain [2] Past Medical History: Diagnosis Date Anxiety COPD (chronic obstructive pulmonary disease) ([facility] [place]) 05/01/2024 Continue Duo nebs q6 SPO2 goal >88% Depression GERD (gastroesophageal reflux disease) 05/01/2024 Continue Protonix 40 mg daily Hyperkalemia 05/06/2024 Now resolved, pt with hypokalemia requiring replacement On mechanically assisted ventilation ([facility] [place]) 05/06/2024 Arrived to ICU intubated 05/07 extubated to 4LNC 05/08 resolved Tobacco use 05/01/2024 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 Complicates all aspects of care and recovery Tremor 05/01/2024 Continue home primidone 50 mg BID [3] Past Surgical History: Procedure Laterality Date ABDOMINAL ADHESION SURGERY SECTION, CLASSIC CHOLECYSTECTOMY CORONARY ARTERY BYPASS GRAFT 05/06/2024 Coronary artery bypass grafting x4 with CHOWDARY to LAD as a free graft, reverse saphenous vein graft sequential to ramus intermedius artery then to obtuse marginal artery 1, reverse saphenous vein graftto PDA.(Reda) HAND SURGERY Right Tendon repair SHOULDER SURGERY * Progress Notes - Rambo Anguiano DO - 05/27/2024 11:31 AM EDT Surgical ICU Daily Progress Note 05/27/24 Rere Hunter HPI 53F with history of HTN, HLD, COPD, GERD, tobacco use, and CAD s/p 4v CABG on 05/06 complicated by post-op ileus. SGE consulted for contained perforation (stomach versus colon) seen on CT. Interval CTscan showed progression of fluid collection between the stomach and colon, with contrast in the collection suggesting colonic perforation. 05/23: exploratory laparotomy, extended left colectomy and end colostomy creation for colonic perforation. Interval: POD#4. AF, VSS. On 1.5L via NC. She is feeling nauseous with CLD, denies emesis. Ostomy with 70ml of thin brown output. Jpx2 with thin sanguinous output. WBC 30 (34) Edited by: Rambo Anguiano, at 05/27/2024 1153 Relevant review of systems was obtained as able and is negative unless stated above in HPI. Vital signs: Visit Vitals BP (!) 141/59 Pulse 88 Temp 37.4 ??C (99.3 ??F) (Bladder) Resp 14 Ht 1.549 m (5' 0.98 ) Wt 62.2 kg (137 lb 2 oz) SpO2 97% BMI 25.92 kg/m?? Smoking Status Every Day BSA 1.64 m?? Intake/Output Summary (Last 24 hours) at 05/27/2024 1247 Last data filed at 05/27/2024 1200 Gross per 24 hour Intake 6296 ml Output 3680 ml Net 2616 ml Physical Exam: Physical Exam Constitutional: General: She is not in acute distress. HENT: Head: Normocephalic. Eyes: Conjunctiva/sclera: Conjunctivae normal. Cardiovascular: Rate and Rhythm: Normal rate and regular rhythm. Pulmonary: Effort: Pulmonary effort is normal. No respiratory distress. Abdominal: General: There is no distension. Tenderness: There is abdominal tenderness (mild generalized). Comments: W[place] c/d/I. LENA drain x2 with thin bloody output. Ostomy with thin brown small volume OP Skin: General: Skin is warm and dry. Neurological: General: No focal deficit present. Mental Status: She is alert and oriented to person, place, and time. Lines/Drains/Tubes: Patient Lines/Drains/Airways Status Active Airway None O2 Delivery Method: Nasal cannula Output by Drain (mL) 05/25/24 0700 - 05/25/24 1859 05/25/24 1900 - 05/26/24 0659 05/26/24 0700 - 05/26/24 1859 05/26/24 1900 - 05/27/24 0659 05/27/24 0700 - 05/27/24 1247 Closed/Suction Drain 1 Inferior;Left Abdomen Bulb 19 Fr. 0 0 30 35 Closed/Suction Drain 1 Left Abdomen Bulb 19 Fr. 40 0 40 5 Labs in last 18 hours: CBC WBC 30.77 (H) Hb 9.5 (L) Plt 413 (H) Hct 29.8 (L) ANC 24.62 (H) INR ??, PTT ??, Anti-Xa ?? BMP Na 134 (L) Cl 99 BUN 16 Glu 127 (H) K 4.1 Co2 26 Cr 0.71 Ca 8.4 (L) iCa ?? Mg 2.1, Phos 4.7 (H) Lactate ?? LFT AST ?? AlkPhos ?? T Prot ?? ALK ?? Bili ?? Alb ?? D.Bili ?? Lab Trends: H/H Results from last 7 days Lab Units 05/27/24 0454 05/26/247 05/25/24 2032 HEMOGLOBIN g/dL 9.5* 7.1* 7.2* HEMATOCRIT % 29.8* 22.4* 23.1* INR Results from last 7 days Lab Units 05/23/24 1241 INR 1.0 Cr Results from last 7 days Lab Units 05/27/24 0454 05/26/24 0327 05/25/24 0245 CREATININE mg/dL 0.71 0.73 0.91 Medications reviewed. Vital signs reviewed. Labs reviewed. Radiography reviewed. Assessment and Plan: Medical Problems and Relevant Plans Hospital Problems POA * (Principal) CAD, multiple vessel Yes Overview Addendum 05/23/2024 8:44 AM by Marybel Suarez APRN Patient presented to OSH on 05/01/24 c/o chest pain, LHC reveal mvCAD S/p CABG with Dr. Austin on 05/07 Anxiety and depression Yes Overview Addendum 05/23/2024 8:43 AM by Marybel Suarez APRN Continue home bupropion XL 300 mg daily Continue home citalopram 40 mg daily Continue PRN hydroxyzine 25 mg q6 COPD (chronic obstructive pulmonary disease) (CMS/HCC) Yes Overview Addendum 05/23/2024 8:43 AM by Daniela, Marybel D, AUTOMOTIVE PORTER Duo nebs q6 Wean O2 for SPO2 goal >88% NSTEMI (non-ST elevated myocardial infarction) (CMS/HCC) Yes Overview Addendum 05/22/2024 11:00 AM by Jose Abruto MD Diagnosed at OSH with elevated troponins of 0.05 to 0.23 to 0.16 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, 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 Repeat troponins pending 05/07 POD 1 4V CABG 05/09 EKG ordered and reviewed no signs of ST changes 05/10 ST 105 05/11 ST 100-105 GERD (gastroesophageal reflux disease) Yes Overview Addendum 05/14/2024 2:06 PM by Cydney Luu MD Continue Protonix 40 mg daily 05/07 extubated, no on home PPI dc'd 05/08 pt denies any GERD symptoms 05/09 + PPI for reflux 05/10 docusate, metoclopramide, miralax, senna, simethicone, continue NG to low intermitted, CLD forpt comfort, passing gas 05/11 as above denies reflux today NG clamp trial 05/14 PPI per blue surgery rec for blood tinged NG output Leukocytosis Yes Overview Addendum 05/23/2024 8:50 AM by Marybel Suarez, AUTOMOTIVE PORTER Remains febrile with elevated EBC Cultures ordered and pending Hyperlipidemia Yes Overview Signed 05/23/2024 8:47 AM by Marybel Suarez, AUTOMOTIVE PORTER Restart statin when no longer NPO THOM (obstructive sleep apnea) Yes Overview Addendum 05/23/2024 8:45 AM by Marybel Suarez, AUTOMOTIVE PORTER Refusing home CPAP remains on NC S/P CABG x 4 Not Applicable Overview Addendum 05/23/2024 8:45 AM by Marybel Suarez, 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 Austin Aspirin, statin, beta stacey as clinically appropriate Hypertension Yes Overview Addendum 05/23/2024 8:47 AM by Marybel Suarez, AUTOMOTIVE PORTER Metop IV while NPO Restart PO metop when appropriate Cardiac volume overload No Overview Addendum 05/18/2024 10:24 AM by Sidney Jackson MD Diuresis as clinically indicated Hypoglycemia No Overview Addendum 05/23/2024 8:46 AM by Marybel Suarez, AUTOMOTIVE PORTER Resolved once TPN started Nausea with vomiting No Overview Addendum 05/24/2024 11:04 AM by Jose Aburto MD NG in place Okay for sips and chips per surgery team Acute blood loss anemia (ABLA) No Overview Addendum 05/23/2024 8:43 AM by Marybel Suarez, AUTOMOTIVE PORTER Lab Results Component Value Date HGB 9.0 (L) 05/23/2024 CTM with daily labs Transfuse as indicated Gastric perforation (CMS/HCC) No Overview Addendum 05/24/2024 11:03 AM by Jose Aburto MD Unclear gastric vs colonic perforation. S/p ex lap with blue surgery on 05/23 On total parenteral nutrition (TPN) No Overview Signed 05/21/2024 9:26 AM by Reyna Mcdonald, AUTOMOTIVE PORTER Started on 05/20 Ileus (CMS/HCC) No Overview Signed 05/23/2024 8:49 AM by Marybel Suarez, AUTOMOTIVE PORTER - NGT for decompression - blue surgery consulted, appreciate recs - serial CT abdomen and pelvis - remains NPO, on TPN Electrolyte abnormality Yes Overview Signed 05/23/2024 8:50 AM by Marybel Suarez, AUTOMOTIVE PORTER - monitor and replace prn Post-op pain Unknown Overview Addendum 05/25/2024 10:12 AM by Dave Baird DO Abdominal tenderness and pain 1010 Increase dilaudid IV ketamine Colon perforation (CMS/HCC) Unknown Overview Addendum 05/24/2024 11:04 AM by Jose Aburto MD Noted on CT scan 05/23/24 To OR with blue surgery S/p left colectomy and end colostomy To Do: - zosyn for 4 days post-op (stop date today 05/27) - on TPN and CLD, advance diet as tolerated - PPI - Will continue to follow LENA output Edited by: Rambo Anguiano DO at 05/27/2024 1247 Rambo Anguiano DO Cosigned by Graciela Nelson MD at 06/03/2024 1:51 AM EDT Associated attestation - Graciela Nelson MD - 06/03/2024 1:51 AM EDT I saw and evaluated the patient with the resident/fellow. I discussed the case with the resident/fellow and agree with the findings and plan as documented. * Progress Notes - Jose aMrtin Traylor DO - 05/27/2024 11:12 AM EDTAssociated Order(s): Critical Care Post-Procedure Diagnose(s): Colon perforation (CMS/HCC) Critical Care Performed by: Jose Martin Traylor DO Authorized by: Jose Martin Traylor DO Critical care provider statement: Critical care time (minutes): 34 Critical care time was exclusive of: Separately billable procedures and treating other patients andteaching time Critical care was time spent personally by me on the following activities: Discussions with primaryprovider, evaluation of patient's response to treatment, examination of patient, ordering and review of radiographic studies, ordering and review of laboratory studies and ordering and performing treatments and interventions I assumed subsequent critical care for this patient from a provider in my division, on the same day: no Critical care statement: I saw and evaluated the patient with the resident/ fellow. I discussed thecase with the resident/ fellow and agree with the findings and plan as documented. 05/27/24 Rere Hunter HPI Rere Hunter is a 53 y.o. female who presents with CAD, multiple vessel. If applicable, patient is s/p Procedure(s) and Anesthesia Type: Panel 1: * LAPAROTOMY, EXPLORATORY, possible bowel resection, possible ostomy - General Panel 2: * COLECTOMY, PARTIAL. Patient is 4 Days Post-Op with General Surgery. Past 24 hours: PM: lasix 20 mg IV AM: A-line out, 1/2 TPN, advance diet as able. IV meds to PO. Edited by: Sidney Jackson MD at 05/27/2024 1111 Lines/Drains/Tubes: Patient Lines/Drains/Airways Status Active Active LDAs Name Placement date Placement time Site Days PICC Double Lumen 05/19/24 Left Basilic vein 05/19/24 0050 Basilic vein 8 Peripheral IV 05/12/24 Anterior;Left Forearm 05/12/24 0030 Forearm 15 Peripheral IV 05/23/24 Left Hand 05/23/24 1440 Hand 3 Closed/Suction Drain 1 Inferior;Left Abdomen Bulb 19 Fr. 05/23/24 1714 Abdomen 3 Closed/Suction Drain 1 Left Abdomen Bulb 19 Fr. 05/23/24 1714 Abdomen 3 Colostomy Transverse RUQ 05/23/24 -- RUQ 4 Urethral Catheter Non-latex;Single lumen;Temperature probe 16 Fr. 05/23/24 1355 -- 3 Arterial Line 05/23/24 Right Radial 05/23/24 1440 Radial 3 Negative Pressure Wound Therapy Abdomen Lower;Upper;Mid 05/23/24 1757 Abdomen 3 GCS: [place] Coma Scale Score: 13 Review of Systems 14 point ROS reviewed and otherwise negative or unobtainable except as noted above or in HPI. Vital signs: Vitals: 05/27/24 1100 BP: Pulse: 87 Resp: 14 Temp: 37.3 ??C (99.1 ??F) SpO2: 98% Intake/Output Summary (Last 24 hours) at 05/27/2024 1112 Last data filed at 05/27/2024 1008 Gross per 24 hour Intake 5516 ml Output 3830 ml Net 1686 ml Physical Exam: Sedation was held for the purposes of examination. Physical Exam Vitals reviewed. Constitutional: General: She is not in acute distress. HENT: Head: Normocephalic and atraumatic. Mouth/Throat: Mouth: Mucous membranes are dry. Pharynx: Oropharynx is clear. Eyes: General: Vision grossly intact. Extraocular Movements: Extraocular movements intact. Pupils: Pupils are equal, round, and reactive to light. Cardiovascular: Pulses: Normal pulses. Comments: No unanticipated findings. Pulmonary: Effort: Pulmonary effort is normal. Breath sounds: Normal air entry. Comments: No unanticipated findings. Abdominal: Palpations: Abdomen is soft. There is no mass. Tenderness: There is abdominal tenderness (Tender in upper abdomen > lower abdomen). Comments: Stoma well-appearing. Midline incision wound vac in place. Musculoskeletal: General: No deformity. Normal range of motion. Cervical back: Normal range of motion. No rigidity. Skin: General: Skin is warm and dry. Neurological: General: No focal deficit present. Mental Status: She is alert, oriented to person, place, and time and easily aroused. Mental status is at baseline. Psychiatric: Behavior: Behavior normal. Behavior is cooperative. Labs in last 18 hours: CBC WBC 30.77 (H) Hb 9.5 (L) Plt 413 (H) Hct 29.8 (L) ANC 24.62 (H) INR ??, PTT ??, Anti-Xa ?? BMP Na 134 (L) Cl 99 BUN 16 Glu 127 (H) K 4.1 Co2 26 Cr 0.71 Ca 8.4 (L) iCa ?? Mg 2.1, Phos 4.7 (H) Lactate ?? LFT AST ?? AlkPhos ?? T Prot ?? ALK ?? Bili ?? Alb ?? D.Bili ?? Imaging as available: === 05/01/24 === XR CHEST 1 VIEW - Narrative - CLINICAL INDICATION: evaluation TECHNIQUE: XR CHEST 1 VIEW COMPARISON: May 24, 2024 FINDINGS: Stable support hardware. Stable cardiomediastinal silhouette. No new consolidation. Persistent layering left-sided pleural effusion. No pneumothorax. - Impression - No significant interval changes. CRITICAL RESULT: No. COMMUNICATION: Per this written report. By electronically signing this report, I, the attending physician, attest that I have personally reviewed the images/data for the above examination(s) and agree with the final edited report. Drafted by Mino Hobbs MD on 05/25/2024 8:09 AM Final report signed by Champ Oden MD on 05/25/2024 8:59 AM Reviewed and agree with above. Assessment and Plan: This patient is critically ill. Medical Problems and Relevant Plans Hospital Problems POA * (Principal) CAD, multiple vessel Yes Overview Addendum 05/23/2024 8:44 AM by Marybel Suarez APRN Patient presented to OSH on 05/01/24 c/o chest pain, LHC reveal mvCAD S/p CABG with Dr. Austin on 05/07 Anxiety and depression Yes Overview Addendum 05/23/2024 8:43 AM by Marybel Suarez APRN Continue home bupropion XL 300 mg daily Continue home citalopram 40 mg daily Continue PRN hydroxyzine 25 mg q6 COPD (chronic obstructive pulmonary disease) ([facility] [place]) Yes Overview Addendum 05/23/2024 8:43 AM by Marybel Suarez APRN Duo nebs q6 Wean O2 for SPO2 goal >88% NSTEMI (non-ST elevated myocardial infarction) ([facility] [place]) Yes Overview Addendum 05/22/2024 11:00 AM by Jose Aburto MD Diagnosed at OSH with elevated troponins of 0.05 to 0.23 to 0.16 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, 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 Repeat troponins pending 05/07 POD 1 4V CABG 05/09 EKG ordered and reviewed no signs of ST changes 05/10 ST 105 05/11 ST 100-105 GERD (gastroesophageal reflux disease) Yes Overview Addendum 05/14/2024 2:06 PM by Cydney Luu MD Continue Protonix 40 mg daily 05/07 extubated, no on home PPI dc'd 05/08 pt denies any GERD symptoms 05/09 + PPI for reflux 05/10 docusate, metoclopramide, miralax, senna, simethicone, continue NG to low intermitted, CLD forpt comfort, passing gas 05/11 as above denies reflux today NG clamp trial 05/14 PPI per blue surgery rec for blood tinged NG output Leukocytosis Yes Overview Addendum 05/23/2024 8:50 AM by Marybel Suarez, ARASH Remains febrile with elevated EBC Cultures ordered and pending Hyperlipidemia Yes Overview Signed 05/23/2024 8:47 AM by Marybel Suarez, AUTOMOTIVE PORTER Restart statin when no longer NPO THOM (obstructive sleep apnea) Yes Overview Addendum 05/23/2024 8:45 AM by Marybel Suarez, AUTOMOTIVE PORTER Refusing home CPAP remains on NC S/P CABG x 4 Not Applicable Overview Addendum 05/23/2024 8:45 AM by Marybel Suarez APRN 05/06 4vCABG w/ Dr. Austin Aspirin, statin, beta stacey as clinically appropriate Hypertension Yes Overview Addendum 05/23/2024 8:47 AM by Marybel Suarez, ARASH Metop IV while NPO Restart PO metop when appropriate Cardiac volume overload No Overview Addendum 05/18/2024 10:24 AM by Sidney Jackson MD Diuresis as clinically indicated Hypoglycemia No Overview Addendum 05/23/2024 8:46 AM by Marybel Suarez, AUTOMOTIVE PORTER Resolved once TPN started Nausea with vomiting No Overview Addendum 05/24/2024 11:04 AM by Jose Aburto MD NG in place Okay for sips and chips per surgery team Acute blood loss anemia (ABLA) No Overview Addendum 05/23/2024 8:43 AM by Marybel Suarez, AUTOMOTIVE PORTER Lab Results Component Value Date HGB 9.0 (L) 05/23/2024 CTM with daily labs Transfuse as indicated Gastric perforation (CMS/HCC) No Overview Addendum 05/24/2024 11:03 AM by Jose Aburto MD Unclear gastric vs colonic perforation. S/p ex lap with blue surgery on 05/23 On total parenteral nutrition (TPN) No Overview Signed 05/21/2024 9:26 AM by Reyna Mcdonald, AUTOMOTIVE PORTER Started on 05/20 Ileus (CMS/HCC) No Overview Signed 05/23/2024 8:49 AM by Marybel Suarez, AUTOMOTIVE PORTER - NGT for decompression - blue surgery consulted, appreciate recs - serial CT abdomen and pelvis - remains NPO, on TPN Electrolyte abnormality Yes Overview Signed 05/23/2024 8:50 AM by Marybel Suarez AUTOMOTIVE PORTER - monitor and replace prn Post-op pain Unknown Overview Addendum 05/25/2024 10:12 AM by Dave Baird DO Abdominal tenderness and pain 11/23 Increase dilaudid IV ketamine Colon perforation (CMS/HCC) Unknown Overview Addendum 05/24/2024 11:04 AM by Jose Aburto MD Noted on CT scan 05/23/24 To OR with blue surgery S/p left colectomy and end colostomy Sidney Jackson MD * Progress Notes - Luis Starkey MD - 05/27/2024 10:29 AM EDT CARDIOTHORACIC SURGERY PROGRESS NOTE SUBJECTIVE Acute Events/Last 24 Hrs: on RA. Colostomy pink, making stool. Remains on TPN. OBJECTIVE All laboratory data, images, tracings, and vital sign data for past 24 hours are personally reviewed unless otherwise noted. Physical Exam VITALS (last 24h) 05/26/2024 10:00 PM 05/26/2024 11:00 PM 05/27/2024 12:00 AM 05/27/2024 1:00 AM 05/27/2024 2:00 AM 05/27/2024 4:00 AM 05/27/2024 5:00 AM Vitals Heart Rate 87 99 90 93 93 95 85 Temp 37.3 C 37.2 C 37.2 C 37.2 C 37.0 C 37.4 C 37.4 C Resp 12 22 20 14 15 16 12 O2 Delivery Method: Nasal cannula General: alert and oriented, no acute distress, resting in bed HEENT: normocephalic, atraumatic, NGT in place Eyes: no scleral icterus, normal conjunctiva Neck: supple, no trachea deviation Lungs: symmetric chest rise, non-labored breathing Heart: fast rate, well perfused Abdomen: soft, tender to palpation, abdominal drains with serosanguinous output and dressings c/d/I, colostomy pink and making stool Extremities: no peripheral edema Skin: no rash, no cyanosis and warm to touch Neuro: aaox4, no focal deficits Psychiatric: oriented to person/place/time and normal mood/affect Intake/Output Intake/Output Summary (Last 24 hours) at 05/27/2024 1029 Last data filed at 05/27/2024 0700 Gross per 24 hour Intake 5286 ml Output 3335 ml Net 1951 ml Results Labs in last 18 hours CBC WBC 30.77 (H) Hb 9.5 (L) Plt 413 (H) Hct 29.8 (L) ANC 24.62 (H) INR ??, PTT ??, Anti-Xa ?? BMP Na 134 (L) Cl 99 BUN 16 Glu 127 (H) K 4.1 Co2 26 Cr 0.71 Ca 8.4 (L) iCa ?? Mg 2.1, Phos 4.7 (H) Lactate ?? LFT AST ?? AlkPhos ?? T Prot ?? ALK ?? Bili ?? Alb ?? D.Bili ?? Imaging No echocardiogram results found for the past 14 days No valid procedures specified. ASSESSMENT & PLAN Principal Problem: CAD, multiple vessel Active Problems: Anxiety and depression COPD (chronic obstructive pulmonary disease) (CMS/HCC) NSTEMI (non-ST elevated myocardial infarction) (CMS/HCC) GERD (gastroesophageal reflux disease) Leukocytosis Hyperlipidemia THOM (obstructive sleep apnea) S/P CABG x 4 Hypertension Cardiac volume overload Hypoglycemia Nausea with vomiting Acute blood loss anemia (ABLA) Gastric perforation (CMS/HCC) On total parenteral nutrition (TPN) Ileus (CMS/HCC) Electrolyte abnormality Post-op pain Colon perforation (CMS/HCC) 53 yrs female who underwent 4v CABG on 05/06/[address] Austin. -ASA -diet per blue surgery -drain care per blue surgery -DVT ppx -IV metop -continue TPN -Zosyn to end today -BID PPI -continue ICU care -pt/ot, mobilize Cardiothoracic Surgery 05/27/24 10:29 AM Cosigned by Maite Austin MD at 05/31/2024 6:34 PM EDT Associated attestation - Maite Austin MD - 05/31/2024 6:34 PM EDT I saw and evaluated the patient with the resident/fellow. I discussed the case with the resident/fellow and agree with the findings and plan as documented. * Progress Notes - Gregg Burdick MD - 05/26/2024 3:17 PM EDTAssociated Order(s): Critical Care Post-Procedure Diagnose(s): S/P CABG x 4 Critical Care Performed by: Gregg Burdick MD Authorized by: Gregg Burdick MD Critical care provider statement: Critical care time (minutes): 40 Critical care time was exclusive of: Separately billable procedures and treating other patients andteaching time Critical care was time spent personally by me on the following activities: Development of treatmentplan with patient or surrogate, discussions with primary provider, evaluation of patient's responseto treatment, examination of patient, obtaining history from patient or surrogate, ordering and performing treatments and interventions, ordering and review of laboratory studies, ordering and reviewof radiographic studies and review of old charts I assumed subsequent critical care for this patient from a provider in my division, on the same day: yes Critical care statement: I saw and evaluated the patient with the resident/ fellow. I discussed thecase with the resident/ fellow and agree with the findings and plan as documented. 05/26/24 Rere Hunter HPI Rere Hunter is a 53 y.o. female who presents with CAD, multiple vessel. If applicable, patient is s/p Procedure(s) and Anesthesia Type: Panel 1: * LAPAROTOMY, EXPLORATORY, possible bowel resection, possible ostomy - General Panel 2: * COLECTOMY, PARTIAL. Patient is 3 Days Post-Op with General Surgery. Past 24 hours: PM: NAEON, repeat H and H stable, no CTA, mild delirium AM: Switching to PO meds. Dc ketamine, IV robaxin x3 days, and adding scheduled PO oxy. increasing metop to 5mg q6. 1u prbc. Lidocaine patches. Edited by: Abhishek Montalvo MD at 05/26/2024 1425 Lines/Drains/Tubes: Patient Lines/Drains/Airways Status Active Active LDAs Name Placement date Placement time Site Days PICC Double Lumen 05/19/24 Left Basilic vein 05/19/24 0050 Basilic vein 7 Peripheral IV 05/12/24 Anterior;Left Forearm 05/12/24 0030 Forearm 14 Peripheral IV 05/23/24 Left Hand 05/23/24 1440 Hand 3 Closed/Suction Drain 1 Inferior;Left Abdomen Bulb 19 Fr. 05/23/24 1714 Abdomen 2 Closed/Suction Drain 1 Left Abdomen Bulb 19 Fr. 05/23/24 1714 Abdomen 2 Colostomy Transverse RUQ 05/23/24 -- RUQ 3 Urethral Catheter Non-latex;Single lumen;Temperature probe 16 Fr. 05/23/24 1355 -- 3 Arterial Line 05/23/24 Right Radial 05/23/24 1440 Radial 3 Negative Pressure Wound Therapy Abdomen Lower;Upper;Mid 05/23/24 1757 Abdomen 2 GCS: Jaida Coma Scale Score: 14 Review of Systems 14 point ROS reviewed and otherwise negative or unobtainable except as noted above or in HPI. Vital signs: Vitals: 05/26/24 1200 BP: Pulse: 95 Resp: 14 Temp: 37 ??C (98.6 ??F) SpO2: 97% Intake/Output Summary (Last 24 hours) at 05/26/2024 1518 Last data filed at 05/26/2024 1502 Gross per 24 hour Intake 1206.87 ml Output 2460 ml Net -1253.13 ml Physical Exam: Sedation was held for the purposes of examination. Physical Exam Vitals reviewed. Constitutional: General: She is not in acute distress. HENT: Head: Normocephalic and atraumatic. Mouth/Throat: Mouth: Mucous membranes are dry. Pharynx: Oropharynx is clear. Eyes: General: Vision grossly intact. Extraocular Movements: Extraocular movements intact. Pupils: Pupils are equal, round, and reactive to light. Cardiovascular: Pulses: Normal pulses. Comments: No unanticipated findings. Pulmonary: Effort: Pulmonary effort is normal. Breath sounds: Normal air entry. Comments: No unanticipated findings. Abdominal: Palpations: Abdomen is soft. There is no mass. Tenderness: There is abdominal tenderness (Tender in upper abdomen > lower abdomen). Comments: Stoma well-appearing. Midline incision wound vac in place. Musculoskeletal: General: No deformity. Normal range of motion. Cervical back: Normal range of motion. No rigidity. Skin: General: Skin is warm and dry. Neurological: General: No focal deficit present. Mental Status: She is alert and easily aroused. Mental status is at baseline. Psychiatric: Behavior: Behavior is cooperative. Labs in last 18 hours: CBC WBC 34.71 (H) Hb 7.1 (L) Plt 378 (H) Hct 22.4 (L) ANC 28.12 (H) INR ??, PTT ??, Anti-Xa ?? BMP Na 136 Cl 104 BUN 17 Glu 122 (H) K 4.5 Co2 24 Cr 0.73 Ca 7.8 (L) iCa ?? Mg 2.1, Phos 4.0 Lactate ?? LFT AST ?? AlkPhos ?? T Prot ?? ALK ?? Bili ?? Alb ?? D.Bili ?? Imaging as available: === 05/01/24 === XR CHEST 1 VIEW - Narrative - CLINICAL INDICATION: evaluation TECHNIQUE: XR CHEST 1 VIEW COMPARISON: May 24, 2024 FINDINGS: Stable support hardware. Stable cardiomediastinal silhouette. No new consolidation. Persistent layering left-sided pleural effusion. No pneumothorax. - Impression - No significant interval changes. CRITICAL RESULT: No. COMMUNICATION: Per this written report. By electronically signing this report, I, the attending physician, attest that I have personally reviewed the images/data for the above examination(s) and agree with the final edited report. Drafted by Mino Hobbs MD on 05/25/2024 8:09 AM Final report signed by Champ Oden MD on 05/25/2024 8:59 AM Reviewed and agree with above. Assessment and Plan: This patient is critically ill. Medical Problems and Relevant Plans Hospital Problems POA * (Principal) CAD, multiple vessel Yes Overview Addendum 05/23/2024 8:44 AM by Marybel Suarez APRN Patient presented to OSH on 05/01/24 c/o chest pain, LHC reveal mvCAD S/p CABG with Dr. Austin on 05/07 Anxiety and depression Yes Overview Addendum 05/23/2024 8:43 AM by Marybel Suarez APRN Continue home bupropion XL 300 mg daily Continue home citalopram 40 mg daily Continue PRN hydroxyzine 25 mg q6 COPD (chronic obstructive pulmonary disease) ([facility] [place]) Yes Overview Addendum 05/23/2024 8:43 AM by Marybel Suarez APRN Duo nebs q6 Wean O2 for SPO2 goal >88% NSTEMI (non-ST elevated myocardial infarction) ([facility] [place]) Yes Overview Addendum 05/22/2024 11:00 AM by Jose Aburto MD Diagnosed at OSH with elevated troponins of 0.05 to 0.23 to 0.16 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, 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 Repeat troponins pending 05/07 POD 1 4V CABG 05/09 EKG ordered and reviewed no signs of ST changes 05/10 ST 105 05/11 ST 100-105 GERD (gastroesophageal reflux disease) Yes Overview Addendum 05/14/2024 2:06 PM by Cydney Luu MD Continue Protonix 40 mg daily 05/07 extubated, no on home PPI dc'd 05/08 pt denies any GERD symptoms 05/09 + PPI for reflux 05/10 docusate, metoclopramide, miralax, senna, simethicone, continue NG to low intermitted, CLD forpt comfort, passing gas 05/11 as above denies reflux today NG clamp trial 05/14 PPI per blue surgery rec for blood tinged NG output Leukocytosis Yes Overview Addendum 05/23/2024 8:50 AM by Marybel Suarez, AUTOMOTIVE PORTER Remains febrile with elevated EBC Cultures ordered and pending Hyperlipidemia Yes Overview Signed 05/23/2024 8:47 AM by Marybel Suarez, AUTOMOTIVE PORTER Restart statin when no longer NPO THOM (obstructive sleep apnea) Yes Overview Addendum 05/23/2024 8:45 AM by Marybel Suarez, AUTOMOTIVE PORTER Refusing home CPAP remains on NC S/P CABG x 4 Not Applicable Overview Addendum 05/23/2024 8:45 AM by Marybel Suarez, 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 Austin Aspirin, statin, beta stacey as clinically appropriate Hypertension Yes Overview Addendum 05/23/2024 8:47 AM by Marybel Suarez, ARASH Metop IV while NPO Restart PO metop when appropriate Cardiac volume overload No Overview Addendum 05/18/2024 10:24 AM by Sidney Jackson MD Diuresis as clinically indicated Hypoglycemia No Overview Addendum 05/23/2024 8:46 AM by Marybel Suarez, AUTOMOTIVE PORTER Resolved once TPN started Nausea with vomiting No Overview Addendum 05/24/2024 11:04 AM by Jose Aburto MD NG in place Okay for sips and chips per surgery team Acute blood loss anemia (ABLA) No Overview Addendum 05/23/2024 8:43 AM by Marybel Suarez, AUTOMOTIVE PORTER Lab Results Component Value Date HGB 9.0 (L) 05/23/2024 CTM with daily labs Transfuse as indicated Gastric perforation (CMS/HCC) No Overview Addendum 05/24/2024 11:03 AM by Jose Aburto MD Unclear gastric vs colonic perforation. S/p ex lap with blue surgery on 05/23 On total parenteral nutrition (TPN) No Overview Signed 05/21/2024 9:26 AM by Reyna Mcdonald APRN Started on 05/20 Ileus (CMS/HCC) No Overview Signed 05/23/2024 8:49 AM by Marybel Suarez, AUTOMOTIVE PORTER - NGT for decompression - blue surgery consulted, appreciate recs - serial CT abdomen and pelvis - remains NPO, on TPN Electrolyte abnormality Yes Overview Signed 05/23/2024 8:50 AM by Marybel Suarez, AUTOMOTIVE PORTER - monitor and replace prn Post-op pain Unknown Overview Addendum 05/25/2024 10:12 AM by Dave Baird, DO Abdominal tenderness and pain 11/23 Increase dilaudid IV ketamine Colon perforation (CMS/HCC) Unknown Overview Addendum 05/24/2024 11:04 AM by Jose Aburot MD Noted on CT scan 05/23/24 To OR with blue surgery S/p left colectomy and end colostomy Sidney Jackson MD * Progress Notes - Fawn Cardenas, PharmD - 05/26/2024 1:31 PM EDT Pharmacist TPN Progress Note Patient: Rere Hunter Age: 53 y.o. Admission Date: [id number] Subjective/Objective/Hospital Course: 53 y.o. female with PMHx of CAD, HTN, COPD, GERD, tremor, anxiety, depression, and tobacco use, who is currently hospitalized under the care of the CVT surgery team after having a CABG on 05/06/24. Since surgery she has developed nausea, vomiting, and abdominal pain with imaging findings consistent with ileus. Patient has had inadequate energy intake likely related to ileus and has been NPO x [address] 05/20 showed intraabdominal fluid adjacent to stomach concerning for possible perforation. UGI with no perforartion. TPN consult for ileus + possible leak. 05/17: TPN consult placed 05/19: TPN initiated 05/23: CT overnight with PO contrast more convincing for colonic perforation instead of stomach perf. OR with general surgery for left hemicolectomy and colostomy creation. 05/25: CLD ordered late afternoon Problem List[1] Medical History[2] Surgical History[3] Allergies: Latex and Oxycodone LABS: Results from last 7 days Lab Units 05/26/24 0327 05/25/24 0245 05/24/24 1018 05/23/24 1954 05/23/24 1939 05/23/24 1414 05/23/24 1300 05/23/24 1140 05/23/24 0540 05/23/24 0115 05/22/24 1850 05/22/24 1132 GLUCOSE mg/dL 122* 126* 182* -- 280* 280* -- 136* -- 117* 110* 110* 126* 143* BUN mg/dL 17 20 28* -- 20 20 -- 13 -- 12 13 13 13 13 CREATININE mg/dL 0.73 0.91 1.18* -- 1.06 1.06 -- 0.68 -- 0.69 0.67 0.67 0.66 0.62 SODIUM mmol/L 136 138 137 -- 137 137 -- 137 -- 136 136 136 136 138 POTASSIUM mmol/L 4.5 5.0* 5.0* -- 5.5* 5.5* -- 4.2 -- 4.2 4.0 4.0 3.7 3.9 CHLORIDE mmol/L 104 107 106 -- 107 107 -- 104 -- 104 103 103 102 104 CO2 mmol/L 24 25 21* -- 20* 20* -- 25 -- 24 25 25 26 25 CALCIUM mg/dL 7.8* 7.7* 8.1* -- 7.5* 7.5* -- 7.7* -- 7.7* 7.9* 7.9* 7.7* 7.9* CALCIUM IONIZED WB mg/dL -- -- -- 4.2* -- 4.4* -- 4.3* 4.3* 4.2* 4.2* 4.4* PHOSPHORUS mg/dL 4.0 3.5 -- -- 6.4* -- 4.1 -- 3.9 3.4 3.6 3.5 MAGNESIUM mg/dL 2.1 2.4 2.7* -- 1.8* -- 2.1 -- 2.0 1.9 2.0 2.0 Results from last 7 days Lab Units 05/26/2432605/25/24203105/25/24 1355 05/25/24 0811 05/25/24 0245 05/24/24 1018 05/23/24 19305/23/24 0540 05/23/24 0115 05/22/24 0613 WBC 10*3/uL 34.71* -- -- 41.23* 41.90* 35.21* 32.33* -- 19.15* 11.56* HEMOGLOBIN g/dL 7.1* 7.2* 7.4* 7.2* 7.5* 8.7* 11.1* < > 9.5* 9.2* HEMATOCRIT % 22.4* 23.1* 23.6* 22.4* 23.1* 26.8* 34.2 < > 30.4* 29.4* PLATELETS 10*3/uL 378* -- -- 373* 352 375* 497* -- 558* 523* < > = values in this interval not displayed. Results from last 7 days Lab Units 05/26/2432605/25/2424405/23/24193805/23/24 1300 05/23/24 0540 05/23/24 0115 05/22/24 1850 05/22/24 1132 05/22/24 0613 05/21/24 0556 05/20/24 2348 05/20/24 1835 05/20/24 0215 ALT U/L -- -- 14 -- -- 14 -- -- 16 -- 22 -- 20 AST U/L -- -- 26 -- -- 29 -- -- 31 -- 39* -- 53* ALKALINE PHOSPHATASE U/L -- -- 97 -- -- 121* -- -- 112* -- 120* -- 117* BILIRUBIN TOTAL mg/dL -- -- 0.9 -- -- 0.6 -- -- 0.7 -- 0.7 -- 0.7 ALBUMIN g/dL 2.0* 1.9* 1.7* 1.7* 2.1* 1.8* 2.1* 2.1* 2.0* < > 1.8* < > 2.0* 2.0* < > 2.0* < > = values in this interval not displayed. Nutrition Labs: Lab Results Component Value Date TRIG 76 05/19/2024 BILITOT 0.9 05/23/2024 ALBUMIN 2.0 (L) 05/26/2024 PREALBUMIN 6.5 (L) 05/09/2024 HGBA1C 5.3 05/01/2024 CRP 225.3 (H) 05/17/2024 IRON 25 (L) 05/14/2024 TIBC 156 (L) 05/14/2024 Microbiology Results Procedure Component Value Units Date/Time Blood Culture (Aerobic/Anaerobet Set) [[id number]] Collected: 05/23/24 1020 Order Status: Completed Specimen: Blood, Venous Updated: 05/24/24 1101 Culture No growth at day 1 Fungal Blood Culture [[id number]] Collected: 05/17/241812 Order Status: Completed Specimen: Blood, Venous Updated: 05/24/24 0638 Culture No Fungal Growth at 1 Week AFB Blood Culture [[id number]] Collected: 05/17/241812 Order Status: Completed Specimen: Blood, Venous Updated: 05/24/24 0638 AFB Culture No Mycobacterial Growth at 1 Week Vitals: Visit Vitals BP (!) 106/90 (BP Location: Right arm, Patient Position: Lying) Pulse 95 Temp 37 ??C (98.6 ??F) Resp 14 Jaida Coma Scale Score: 14 Shaan Scale Score: 15 Oxygen Therapy: None (Room air) Skin Integrity: Bruising, Other (Comment) (incision chest) Edema: Generalized Wt Readings from Last 3 Encounters: 05/26/24 62.2 kg (137 lb 2 oz) 06/28/23 59 kg (130 lb) 04/26/23 62.6 kg (138 lb) Current Diet Order: Dietary Orders (From admission, onward) Start Ordered 05/25/24 1633 Adult diet Diet texture: Clear liquid (Adult Diet Panel) Diet effective now References: IDDSI Diet Texture Guide Question: Diet texture Answer: Clear liquid 05/25/24 1632 Current Medications acetaminophen, 1,000 mg, Intravenous, q8h aspirin, 150 mg, Rectal, Daily fat emulsion fish/plant based, 250 mL, Intravenous, Every other day heparin (porcine), 5,000 Units, Subcutaneous, q8h ketamine (Ketalar) 5.9 mg in sodium chloride 0.9 % 50 mL IVPB, 0.1 mg/kg, Intravenous, q8h metoprolol tartrate, 5 mg, Intravenous, q6h pantoprazole, 40 mg, Intravenous, BID piperacillin-tazobactam, 4.5 g, Intravenous, q6h sodium chloride, 10 mL, Intravenous, q12h Adult 2-in-1 TPN, 65 mL/hr, Last Rate: 65 mL/hr (05/26/24 0600) Current Anthropometrics: Height: 154.9 cm (5' 0.98 ) Weight: 61.1 kg (134 lb 12.8 oz) [place] body weight: 47.8 kg (105 lb 4.8 oz) Adjusted ideal body weight: 52.8 kg (116 lb 5.7 oz) (126.25%) of IBW Body mass index is 25.13 kg/m??. Adjusted wt: 50.9 kg (if over 125% of IBW) CENTRAL IV Access: PICC (05/18/24) Estimated Nutritional Needs: HBE: 1153 Stress Factor: 1.2-1.4 Total Calories/day: 8483-1966 Protein (amino acids): 1.3-1.6 grams/kg Protein (Amino acids): 66-81 grams/day Measured Energy Needs: Respiratory Quotient: 05/26/2024 Plan/Recommendation: Labs reviewed, K better. Continue goal TPN as below. GOAL TPN: DEXTROSE: 18% (281 g/day CHO) AMINO ACIDS: 5% (78 g/day - 1.51 g/kg/day Amino acids) C:A 1:3, K @ 30 mEq/L @ 65 ml/hr, with 30mg/day thiamine, MVI, and Trace elements Every other day 250ml 20% SMOF lipids 1517 Total kcal/day - 29.8 kcal/kg/day GUR: 3.83 Replace electrolytes outside of TPN Calcium and/or Phosphorus supplements MUST be in a separate line from the TPN to avoid precipitation Obtain BMP, magnesium, and Phos daily x 3days and then at least twice weekly Obtain LFT and TGLY weekly I have monitored the TPN therapy, including the labs, and have communicated any modifications with the primary medical/surgical team. Continue current TPN formula and lipid regimen as above. I have communicated the TPN plan with the IV room. Thank you, Fawn Cardenas, MagalieD, BCCCP Trauma/Acute Care Surgery Pharmacist TPN Pharmacist available on [employer] Secure Chat [1] Patient Active Problem List Diagnosis Anxiety and depression COPD (chronic obstructive pulmonary disease) (CMS/HCC) CAD, multiple vessel NSTEMI (non-ST elevated myocardial infarction) (CMS/HCC) GERD (gastroesophageal reflux disease) Leukocytosis Hyperlipidemia THOM (obstructive sleep apnea) S/P CABG x 4 Hypertension Cardiac volume overload Hypoglycemia Nausea with vomiting Acute blood loss anemia (ABLA) Gastric perforation (CMS/HCC) On total parenteral nutrition (TPN) Ileus ([facility]/HCC) Electrolyte abnormality Colon perforation ([facility]/HCC) Post-op pain [2] Past Medical History: Diagnosis Date Anxiety COPD (chronic obstructive pulmonary disease) (CMS/HCC) 05/01/2024 Continue Duo nebs q6 SPO2 goal >88% Depression GERD (gastroesophageal reflux disease) 05/01/2024 Continue Protonix 40 mg daily Hyperkalemia 05/06/2024 Now resolved, pt with hypokalemia requiring replacement On mechanically assisted ventilation ([facility]/HCC) 05/06/2024 Arrived to ICU intubated 05/07 extubated to 4LNC 05/08 resolved Tobacco use 05/01/2024 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 Complicates all aspects of care and recovery Tremor 05/01/2024 Continue home primidone 50 mg BID [3] Past Surgical History: Procedure Laterality Date ABDOMINAL ADHESION SURGERY SECTION, CLASSIC CHOLECYSTECTOMY CORONARY ARTERY BYPASS GRAFT 05/06/2024 Coronary artery bypass grafting x4 with CHOWDARY to LAD as a free graft, reverse saphenous vein graft sequential to ramus intermedius artery then to obtuse marginal artery 1, reverse saphenous vein graftto PDA.(Reda) HAND SURGERY Right Tendon repair SHOULDER SURGERY * Progress Notes - Iman Massey MD - 05/26/2024 1:24 PM EDT Surgical ICU Daily Progress Note 05/26/24 Rere Hunter HPI 53F with history of HTN, HLD, COPD, GERD, tobacco use, and CAD s/p 4v CABG on 05/06 complicated by post-op ileus. SGE consulted for contained perforation (stomach versus colon) seen on CT. Interval CTscan showed progression of fluid collection between the stomach and colon, with contrast in the collection suggesting colonic perforation. 05/23: exploratory laparotomy, extended left colectomy and end colostomy creation for colonic perforation. Interval: Still having abdominal pain, similar to yesterday. She is feeling nauseous with CLD. Tachycardic to 110s, normotensive, afebrile. Edited by: Iman Massey MD at 05/26/2024 1324 Relevant review of systems was obtained as able and is negative unless stated above in HPI. Vital signs: Visit Vitals BP (!) 106/90 (BP Location: Right arm, Patient Position: Lying) Pulse 95 Temp 37 ??C (98.6 ??F) Resp 14 Ht 1.549 m (5' 0.98 ) Wt 62.2 kg (137 lb 2 oz) SpO2 97% BMI 25.92 kg/m?? Smoking Status Every Day BSA 1.64 m?? Intake/Output Summary (Last 24 hours) at 05/26/2024 1508 Last data filed at 05/26/2024 1300 Gross per 24 hour Intake 1206.87 ml Output 2335 ml Net -1128.13 ml Physical Exam: Physical Exam Constitutional: General: She is not in acute distress. HENT: Head: Normocephalic. Eyes: Conjunctiva/sclera: Conjunctivae normal. Cardiovascular: Rate and Rhythm: Normal rate and regular rhythm. Pulmonary: Effort: Pulmonary effort is normal. No respiratory distress. Abdominal: General: There is no distension. Tenderness: There is abdominal tenderness (mild generalized). Comments: W[place] and drains c/d/I. Ostomy with small volume OP Skin: General: Skin is warm and dry. Neurological: Mental Status: She is alert. Lines/Drains/Tubes: Patient Lines/Drains/Airways Status Active Airway None O2 Delivery Method: Nasal cannula Output by Drain (mL) 05/24/24 0700 - 05/24/24 1859 05/24/24 1900 - 05/25/24 0659 05/25/24 0700 - 05/25/24 1859 05/25/24 1900 - 05/26/24 0659 05/26/24 0700 - 05/26/24 1508 Closed/Suction Drain 1 Inferior;Left Abdomen Bulb 19 Fr. 10 0 0 0 Closed/Suction Drain 1 Left Abdomen Bulb 19 Fr. 50 35 40 0 30 Labs in last 18 hours: CBC WBC 34.71 (H) Hb 7.1 (L) Plt 378 (H) Hct 22.4 (L) ANC 28.12 (H) INR ??, PTT ??, Anti-Xa ?? BMP Na 136 Cl 104 BUN 17 Glu 122 (H) K 4.5 Co2 24 Cr 0.73 Ca 7.8 (L) iCa ?? Mg 2.1, Phos 4.0 Lactate ?? LFT AST ?? AlkPhos ?? T Prot ?? ALK ?? Bili ?? Alb ?? D.Bili ?? Lab Trends: H/H Results from last 7 days Lab Units 05/26/24 0327 05/25/24 2032 05/25/24 1355 HEMOGLOBIN g/dL 7.1* 7.2* 7.4* HEMATOCRIT % 22.4* 23.1* 23.6* INR Results from last 7 days Lab Units 05/23/24 1241 INR 1.0 Cr Results from last 7 days Lab Units 05/26/24 0327 05/25/24 0245 05/24/24 1018 CREATININE mg/dL 0.73 0.91 1.18* Medications reviewed. Vital signs reviewed. Labs reviewed. Radiography reviewed. Assessment and Plan: Medical Problems and Relevant Plans Hospital Problems POA * (Principal) CAD, multiple vessel Yes Overview Addendum 05/23/2024 8:44 AM by Marybel Suarez APRN Patient presented to OSH on 05/01/24 c/o chest pain, LHC reveal mvCAD S/p CABG with Dr. Austin on 05/07 Anxiety and depression Yes Overview Addendum 05/23/2024 8:43 AM by Marybel Suarez APRN Continue home bupropion XL 300 mg daily Continue home citalopram 40 mg daily Continue PRN hydroxyzine 25 mg q6 COPD (chronic obstructive pulmonary disease) ([facility] [place]) Yes Overview Addendum 05/23/2024 8:43 AM by Marybel Suarez APRN Duo nebs q6 Wean O2 for SPO2 goal >88% NSTEMI (non-ST elevated myocardial infarction) ([facility] [place]) Yes Overview Addendum 05/22/2024 11:00 AM by Jose Aburto MD Diagnosed at OSH with elevated troponins of 0.05 to 0.23 to 0.16 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, 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 Repeat troponins pending 05/07 POD 1 4V CABG 05/09 EKG ordered and reviewed no signs of ST changes 05/10 ST 105 05/11 ST 100-105 GERD (gastroesophageal reflux disease) Yes Overview Addendum 05/14/2024 2:06 PM by Cydney Luu MD Continue Protonix 40 mg daily 05/07 extubated, no on home PPI dc'd 05/08 pt denies any GERD symptoms 05/09 + PPI for reflux 05/10 docusate, metoclopramide, miralax, senna, simethicone, continue NG to low intermitted, CLD forpt comfort, passing gas 05/11 as above denies reflux today NG clamp trial 05/14 PPI per blue surgery rec for blood tinged NG output Leukocytosis Yes Overview Addendum 05/23/2024 8:50 AM by Marybel Suarez, ARASH Remains febrile with elevated EBC Cultures ordered and pending Hyperlipidemia Yes Overview Signed 05/23/2024 8:47 AM by Marybel Suarez, AUTOMOTIVE PORTER Restart statin when no longer NPO THOM (obstructive sleep apnea) Yes Overview Addendum 05/23/2024 8:45 AM by Marybel Suarez, AUTOMOTIVE PORTER Refusing home CPAP remains on NC S/P CABG x 4 Not Applicable Overview Addendum 05/23/2024 8:45 AM by Marybel Suarez, 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 Austin Aspirin, statin, beta stacey as clinically appropriate Hypertension Yes Overview Addendum 05/23/2024 8:47 AM by Marybel Suarez, AUTOMOTIVE PORTER Metop IV while NPO Restart PO metop when appropriate Cardiac volume overload No Overview Addendum 05/18/2024 10:24 AM by Sidney Jackson MD Diuresis as clinically indicated Hypoglycemia No Overview Addendum 05/23/2024 8:46 AM by Marybel Suarez, AUTOMOTIVE PORTER Resolved once TPN started Nausea with vomiting No Overview Addendum 05/24/2024 11:04 AM by Jose Aburto MD NG in place Okay for sips and chips per surgery team Acute blood loss anemia (ABLA) No Overview Addendum 05/23/2024 8:43 AM by Marybel Suarez, AUTOMOTIVE PORTER Lab Results Component Value Date HGB 9.0 (L) 05/23/2024 CTM with daily labs Transfuse as indicated Gastric perforation (CMS/HCC) No Overview Addendum 05/24/2024 11:03 AM by Jose Aburto MD Unclear gastric vs colonic perforation. S/p ex lap with blue surgery on 05/23 On total parenteral nutrition (TPN) No Overview Signed 05/21/2024 9:26 AM by Reyna Mcdonald, AUTOMOTIVE PORTER Started on 05/20 Ileus (CMS/HCC) No Overview Signed 05/23/2024 8:49 AM by Marybel Suarez, AUTOMOTIVE PORTER - NGT for decompression - blue surgery consulted, appreciate recs - serial CT abdomen and pelvis - remains NPO, on TPN Electrolyte abnormality Yes Overview Signed 05/23/2024 8:50 AM by Marybel Suarez, AUTOMOTIVE PORTER - monitor and replace prn Post-op pain Unknown Overview Addendum 05/25/2024 10:12 AM by Dave Baird P, DO Abdominal tenderness and pain 11/23 Increase dilaudid IV ketamine Colon perforation (CMS/HCC) Unknown Overview Addendum 05/24/2024 11:04 AM by Jose Aburto MD Noted on CT scan 05/23/24 To OR with blue surgery S/p left colectomy and end colostomy To Do: - continue zosyn for 4 days post-op (stop date 05/27) unless clinically worsens - continue NGT for now as patient is nauseous - on CLD, advance as tolerated - PPI Edited by: Iman Massey MD at 05/26/2024 [id number] Iman Massey MD Procedures Cosigned by Graciela Nelson MD at 06/02/2024 12:27 AM EDT Associated attestation - Graciela Nelson MD - 06/02/2024 12:27 AM EDT I saw and evaluated the patient with the resident/fellow. I discussed the case with the resident/fellow and agree with the findings and plan as documented. * Progress Notes - Graciela Blanca PA - 05/26/2024 9:25 AM EDT CARDIOTHORACIC SURGERY PROGRESS NOTE SUBJECTIVE Acute Events/Last 24 Hrs: On 2L N/C. Colostomy pink. Sinus rhythm. NGT removed. Continues with TPN. OBJECTIVE All laboratory data, images, tracings, and vital sign data for past 24 hours are personally reviewed unless otherwise noted. Physical Exam VITALS (last 24h) 05/26/2024 2:00 AM 05/26/2024 3:00 AM 05/26/2024 4:00 AM 05/26/2024 5:00 AM 05/26/2024 6:00 AM 05/26/2024 7:00 AM 05/26/2024 8:00 AM Vitals Heart Rate 102 107 100 99 104 105 108 Temp 37.2 C 37.1 C 37.1 C 37.1 C 37.1 C 37.1 C 37.2 C Resp 11 15 9 24 11 13 19 Weight (kg) 62.2 kg BMI 25.92 kg/m2 BSA (m2) 1.64 m2 O2 Delivery Method: Nasal cannula General: alert and oriented, no acute distress, resting in bed HEENT: normocephalic, atraumatic, NGT in place Eyes: no scleral icterus, normal conjunctiva Neck: supple, no trachea deviation Lungs: symmetric chest rise, non-labored breathing Heart: fast rate, well perfused Abdomen: soft, tender to palpation, abdominal drains with serosanguinous output and dressings c/d/i Extremities: no peripheral edema Skin: no rash, no cyanosis and warm to touch Psychiatric: oriented to person/place/time and normal mood/affect Intake/Output Intake/Output Summary (Last 24 hours) at 05/26/2024 0925 Last data filed at 05/26/2024 0900 Gross per 24 hour Intake 1826.52 ml Output 2290 ml Net -463.48 ml Results Labs in last 18 hours CBC WBC 34.71 (H) Hb 7.1 (L) Plt 378 (H) Hct 22.4 (L) ANC 28.12 (H) INR ??, PTT ??, Anti-Xa ?? BMP Na 136 Cl 104 BUN 17 Glu 122 (H) K 4.5 Co2 24 Cr 0.73 Ca 7.8 (L) iCa ?? Mg 2.1, Phos 4.0 Lactate ?? LFT AST ?? AlkPhos ?? T Prot ?? ALK ?? Bili ?? Alb ?? D.Bili ?? Imaging No echocardiogram results found for the past 14 days No valid procedures specified. ASSESSMENT & PLAN Principal Problem: CAD, multiple vessel Active Problems: Anxiety and depression COPD (chronic obstructive pulmonary disease) (CMS/HCC) NSTEMI (non-ST elevated myocardial infarction) (CMS/HCC) GERD (gastroesophageal reflux disease) Leukocytosis Hyperlipidemia THOM (obstructive sleep apnea) S/P CABG x 4 Hypertension Cardiac volume overload Hypoglycemia Nausea with vomiting Acute blood loss anemia (ABLA) Gastric perforation (CMS/HCC) On total parenteral nutrition (TPN) Ileus (CMS/HCC) Electrolyte abnormality Post-op pain Colon perforation (CMS/HCC) 53 yrs female who underwent 4v CABG on 05/06/[address] Austin. -ASA -NPO -DVT ppx -IV metop -TPN -Zosyn -BID PPI -Appreciate gen surg recs -Increase Metoprolol to 5 mg IV q 6 hrs -Music, narrative, dog, art therapy -continue ICU care Cardiothoracic Surgery 05/26/24 9:25 AM * Progress Notes - Geno Regan - 05/25/2024 1:45 PM EDT Occupational Therapy Re-Assessment Patient Name: Rere Hunter Today's Date: 05/25/2024 OT Discharge Recommendations: LTACH Equipment Recommended: Defer to facility History Rere Hunter is 53 y.o. female admitted 05/01/2024 for work-up of CAD, multiple vessel. Hospital Course 1. S/P CABG x 4 2. CAD, multiple vessel 3. Cardiac volume overload 4. Colon perforation ([facility] Procedures 05/23/2024 Procedure(s): LAPAROTOMY, EXPLORATORY, possible bowel resection, possible ostomy COLECTOMY, PARTIAL Past Medical History Patient has a past medical history of Anxiety, COPD (chronic obstructive pulmonary disease) ([facility]) (05/01/2024), Depression, GERD (gastroesophageal reflux disease) (05/01/2024), Hyperkalemia (05/06/2024), On mechanically assisted ventilation ([facility]) (05/06/2024), Tobacco use (05/01/2024), and T remor (05/01/2024). Past Surgical History Patient has a past surgical history that includes section, classic; Cholecystectomy; Shoulder surgery; Abdominal adhesion surgery; Hand surgery (Right); and Coronary artery bypass graft (05/06/2024). Precautions Medical Precautions: Fall precautions, Sternal Subjective Pt agreeable to OT session. Participants in Care Family/Caregiver Present: Yes Family/Caregiver: Other (Specify) (Friend) Tester Equipment: Not Applicable Presentation Oxygen Therapy: Supplemental oxygen O2 Delivery Method: Nasal cannula O2 Flow Rate (L/min): 2 L/min Lines and Tubes: Telemetry Arterial Line 05/23/24 Right Radial (Active) Closed/Suction Drain 1 Inferior;Left Abdomen Bulb 19 Fr. (Active) Closed/Suction Drain 1 Left Abdomen Bulb 19 Fr. (Active) NG/OG Meridian Sump 14 Fr Right nostril (Active) Colostomy Transverse RUQ (Active) Urethral Catheter Non-latex;Single lumen;Temperature probe 16 Fr. (Active) PICC Double Lumen 05/19/24 Left Basilic vein (Active) Negative Pressure Wound Therapy Abdomen Lower;Upper;Mid (Active) Peripheral IV 05/12/24 Anterior;Left Forearm (Active) Peripheral IV 05/23/24 Left Hand (Active) Pre-Session: Lines intact, Supine, Head of bed elevated, Bed alarm Pre-Session Comments: RN agreeable to session. Post-Session: Sitting in chair, Call light in reach, RN notified, Lines intact Post-Session Comments: Pt positioned for comfort. All needs met/within reach. Blinds open. RN notified of status. 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 Objective Pain Pain Score (0-10): 10 Location: abdomen Intervention: position adjusted, pillow support provided, and emotional support provided Response: RN notified Delirium Screening Urban Agitation Sedation Scale (RASS): Alert and calm Confusion Assessment Method-ICU (CAM-ICU/PCAM-ICU) Feature 3: Altered Level of Consciousness: Negative Cognition Overall Cognitive Status: Within Functional Limits Arousal/Alertness: Appropriate responses to stimuli Mood/Behavior: Anxious, Lethargic, Flat affect Orientation Level: Oriented to place, Oriented to situation, Oriented to person, Disoriented to time, Oriented to family Orientation Level Comments: Pt provided with verbal cues for month and current year. Pt unable to correctly identify month, but identified year as 2024. Single Step Commands: With increased time, With repetition, Consistently Multi-Step Commands: With increased time, With repetition Method of Communication: Verbal Right Upper Extremity Examination RUE ROM Assessment RUE Assessment: Within Functional Limits Manual Muscle Testing - RUE: (NT 2/2 sternal precautions) Sensation Light Touch: Right Upper Extremity: Intact Left Upper Extremity Examination LUE ROM Assessment LUE Assessment: Within Functional Limits Manual Muscle Testing - LUE: (NT 2/2 sternal precautions) Sensation Light Touch: Left Upper Extremity: Intact Right Lower Extremity Examination RLE ROM Assessment RLE Assessment: Within Functional Limits Manual Muscle Testing - RLE: Within functional limits Sensation Light Touch: Right Lower Extremity: Intact Left Lower Extremity Examination LLE ROM Assessment LLE Assessment: Within Functional Limits Manual Muscle Testing: Within functional limits Sensation Light Touch: Left Lower Extremity: Intact Bed Mobility Bed Mobility Exam: Rolling/Turning Level of Harmon: Maximum assist (25% patient effort) Physical/Nonphysical Assist: Verbal Cues, Nonverbal cues (demo/gestures), Additional assist utilized for safety, Moderate cues Bed Mobility Exam: Scooting/Bridging Level of Harmon: Minimum assist (75% patient's effort) Physical/Nonphysical Assist: Additional assist utilized for safety, Verbal Cues, Set-up required, Moderate cues Bed Mobility Exam: Supine to Sit Level of Harmon: Maximum assist (25% patient's effort) Physical/Nonphysical Assist: Verbal Cues, Nonverbal cues (demo/gestures), Moderate cues, HOB elevated, Additional assist utilized for safety Transfers Transfer Exam: Sit to stand Level of Harmon: Contact guard Physical/Nonphysical Assist: Verbal Cues, Moderate cues, Additional assist utilized for safety Assistive Device: Hand held assist Transfer Exam: Stand to Sit Level of Harmon: Contact guard Physical/Nonphysical Assist: Verbal Cues, Additional assist utilized for safety, Moderate cues Assistive Device: Hand held assist Transfer Exam: Bed to Chair/Chair to Bed Level of Harmon: Minimum assist (75% patient's effort) Physical/Nonphysical Assist: Verbal Cues, Moderate cues, Additional assist utilized for safety, Nonverbal cues (demo/gestures) Type of Transfer: Sidesteps Assistive Device: Hand held assist Self-Care Interventions Self Care/Home Management (ADLs) Time Entry: 8 Self-Care Interventions: Pt actively participated in self-care interventions this date with an emphasis on functional mobility, endurance, and ADL retraining. Pt engaged in bed mobility and functional transfers to address performance skill deficits impeding occupational independence. Pt engaged in bed mobility tasks to prepare for participation in ADL activity. Pt completed supine to sit transition with max assist and scooted to EOB with min assist. Pt benefited from skilled occupational therapy interventions including: Monitoring of vitals to ensure activity tolerance MIN verbal and tactile cues to facilitate sequencing during functional tasks Provision of increased time frames to support optimal level of pt participation Task/activity modification with grading as needed to achieve safety while also providing appropriate functional challenge Skilled organization and management of medical lines/tubes to reduce fall risk with mobility aspects of ADLs Environmental set-up to ensure safety and accessibility to all needed areas of treatment space Education on energy conservation and work simplification Toileting Toileting Level of Assistance: Minimum assistance Where Assessed: Other (Comment) (EOB > recliner chair transfer) Toileting Interventions: Pt declining the need to utilize restroom/BSC this date so therapist facilitated engagement in simulated BSC transfer to address performance skills necessary for toileting ADL. Pt required contact guard assistance to complete sit to stand portion of transfer with use of hand held assistance. Pt required min multimodal cues to sequence side steps to recliner from EOB with min assistance. Pt required contact guard assist and min verbal cues for hand placement and to ensure a controlled descent with stand to sit portion of transfer. Standardized Assessments [facility] 6-Click Daily Activities Help from Other: Don/Doff Regular Lower Body Clothings: A lot Help From Other: Bathing: A lot Help From Other: Toileting: A lot Help From Other: Don/Doff Upper Body Clothings: A lot Help From Other: Grooming: Little Help From Other: Eating Meals: A lot [facility] 6 Click - Daily Activities Score: 13 Assessment Pt tolerated session activities fair as evidenced by monitoring of vitals throughout session. Pt has made minimal progress within OT POC secondary to pt change in medical status (pt now s/p exploratory laparotomy, colectomy and end colostomy creation for colonic perforation). Pt continues to present with decreased balance, impaired strength, and limited endurance impacting pt's overall ADL and IADL task performance. Prior to admission pt was independent with ADLs and other valued occupations. Pt demonstrated fair activity tolerance this date, but continues to require environmental modification, multimodal cues, and physical assistance to maximize safety with completion of ADLs near PLOF. Due to pt's current functional status, pt would benefit from LTACH rehabilitation services to maximizeoccupational independence. Patient would benefit from continued OT services to increase overall performance. OT Findings: Impaired ADL performance, Impaired IADL performance, Impaired judgment during ADL, Impaired cognition, Impaired attention, Decreased endurance/ventilation/gas exchange, Impaired executive function, Impaired functional mobility, Impaired postural/trunk control, Impaired balance Evaluation/Treatment Tolerance: Patient limited by fatigue Rehab Potential: Good, to achieve stated therapy goals Barriers to Discharge: Comorbidities OT Recommendations Discharge Destination: LTACH Discharge Equipment: Defer to facility Demonstrates Need for Referral to Another Service: Social work Plan Planned OT Interventions ADL retraining, IADL retraining, Balance training, Bed mobility Training, Functional mobility, Transfer training, Strengthening, Caregiver education OT Frequency 2 - 5 times per week OT Duration 2 weeks OT GOAL DETAILS DATE ASSESSED STATUS PROGRESS OT Goal 1: Pt will perform functional toilet transfer including entering/exiting bathroom with mod I using DME as needed. OT Goal 1 Established Date: 05/07/24 OT Goal 1 Time Frame: 2 weeks 05/25/24 Goal not met, Goal ongoing Continuing progress towards goal,Progress limited by patient's participation/progress, Medical status inhibiting participation/progress OT Goal 2: Pt will perform three consecutive grooming activities standing at the sink with mod I using DME as needed. OT Goal 2 Established Date: 05/07/24 OT Goal 2 Time Frame: 2 weeks 05/25/24 Goal not met, Goal ongoing Continuing progress towards goal,Medical status inhibiting participation/progress, Progress limited by patient's participation/progress OT Goal 3: Pt will perform three consecutive LB dressing activities in sitting/standing with mod I using DME/AE as needed. OT Goal 3 Established Date: 05/07/24 OT Goal 3 Time Frame: 2 weeks 05/25/24 Goal not met, Goal ongoing Continuing progress towards goal,Medical status inhibiting participation/progress, Progress limited by patient's participation/progress OT Goal 4: Pt will verbalize/demonstrate sternal precautions with 100% accuracy in order to safely participate in her ADL routine. OT Goal 4 Established Date: 05/07/24 OT Goal 4 Time Frame: 2 weeks 05/25/24 Goal not met, Goal ongoing Continuing progress towards goal,Progress limited by patient's participation/progress, Medical status inhibiting participation/progress Written by Geno Regan on 05/25/24 at 3:03 PM. * Progress Notes - Fariha Sands - 05/25/2024 1:44 PM EDT Physical Therapy Re-Assessment Patient Name: Rere Hunter Today's Date: 05/25/2024 PT Discharge Recommendations: LTACH Equipment Recommended: Defer to facility History Rere Hunter is 53 y.o. female admitted 05/01/2024 for work-up of CAD, multiple vessel. Hospital Course 1. S/P CABG x 4 2. CAD, multiple vessel 3. Cardiac volume overload 4. Colon perforation ([facility]) Procedures 05/23/2024 Procedure(s): LAPAROTOMY, EXPLORATORY, possible bowel resection, possible ostomy COLECTOMY, PARTIAL Past Medical History Patient has a past medical history of Anxiety, COPD (chronic obstructive pulmonary disease) ([facility]) (05/01/2024), Depression, GERD (gastroesophageal reflux disease) (05/01/2024), Hyperkalemia (05/06/2024), On mechanically assisted ventilation ([facility]) (05/06/2024), Tobacco use (05/01/2024), and T remor (05/01/2024). Past Surgical History Patient has a past surgical history that includes section, classic; Cholecystectomy; Shoulder surgery; Abdominal adhesion surgery; Hand surgery (Right); and Coronary artery bypass graft (05/06/2024). Precautions Medical Precautions: Fall precautions, Sternal Subjective I'm in so much pain. Pt and RN agreeable to PT treatment session this date. Participants in Care Family/Caregiver Present: Yes Family/Caregiver: Other (Specify) (Friend) Tester Equipment: Not Applicable Presentation Oxygen Therapy: Supplemental oxygen O2 Delivery Method: Nasal cannula O2 Flow Rate (L/min): 2 L/min Lines and Tubes: Telemetry Arterial Line 05/23/24 Right Radial (Active) Closed/Suction Drain 1 Inferior;Left Abdomen Bulb 19 Fr. (Active) Closed/Suction Drain 1 Left Abdomen Bulb 19 Fr. (Active) NG/OG Meridian Sump 14 Fr Right nostril (Active) Colostomy Transverse RUQ (Active) Urethral Catheter Non-latex;Single lumen;Temperature probe 16 Fr. (Active) PICC Double Lumen 05/19/24 Left Basilic vein (Active) Negative Pressure Wound Therapy Abdomen Lower;Upper;Mid (Active) Peripheral IV 05/12/24 Anterior;Left Forearm (Active) Peripheral IV 05/23/24 Left Hand (Active) Pre-Session: Lines intact, Supine, Head of bed elevated, Bed alarm Pre-Session Comments: RN agreeable to session. Post-Session: Sitting in chair, Call light in reach, RN notified, Lines intact Post-Session Comments: Pt positioned for comfort. All needs met/within reach. Blinds open. RN notified of status. 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 Objective Pain Pt endorses 10/10 pain at abdominal incision site. Pt positioned for comfort in chair following session with pillows for UE support and LE elevated. Delirium Screening Urban Agitation Sedation Scale (RASS): Alert and calm Confusion Assessment Method-ICU (CAM-ICU/PCAM-ICU) Feature 3: Altered Level of Consciousness: Negative Cognition Overall Cognitive Status: Within Functional Limits Arousal/Alertness: Appropriate responses to stimuli Mood/Behavior: Anxious, Lethargic, Flat affect Orientation Level: Oriented to place, Oriented to situation, Oriented to person Orientation Level Comments: Not oriented to month Single Step Commands: With increased time, With repetition Multi-Step Commands: With increased time, With repetition Method of Communication: Verbal Vision - Basic Assessment Patient Visual Report: Pt reporting mildly blurry vision upon sitting edge of bed, quickly resolved. Right Upper Extremity Examination RUE ROM Assessment RUE Assessment: Within Functional Limits Manual Muscle Testing - RUE: (NT 2/2 sternal precautions) Sensation Light Touch: Right Upper Extremity: Intact Left Upper Extremity Examination LUE ROM Assessment LUE Assessment: Within Functional Limits Manual Muscle Testing - LUE: (NT 2/2 sternal precautions) Sensation Light Touch: Left Upper Extremity: Intact Right Lower Extremity Examination RLE ROM Assessment RLE Assessment: Within Functional Limits Manual Muscle Testing - RLE: Within functional limits Sensation Light Touch: Right Lower Extremity: Intact Left Lower Extremity Examination LLE Assessment: Within Functional Limits Manual Muscle Testing: Within functional limits Sensation Light Touch: Left Lower Extremity: Intact Bed Mobility Bed Mobility Exam: Rolling/Turning Level of Harmon: Maximum assist (25% patient effort) Physical/Nonphysical Assist: Verbal Cues, Nonverbal cues (demo/gestures), Additional assist utilized for safety, Moderate cues Bed Mobility Exam: Scooting/Bridging Level of Harmon: Minimum assist (75% patient's effort) Physical/Nonphysical Assist: Additional assist utilized for safety, Verbal Cues, Set-up required, Moderate cues Bed Mobility Exam: Supine to Sit Level of Harmon: Maximum assist (25% patient's effort) Physical/Nonphysical Assist: Verbal Cues, Nonverbal cues (demo/gestures), Moderate cues, HOB elevated, Additional assist utilized for safety Transfers Transfer Exam: Sit to stand Level of Harmon: Contact guard Physical/Nonphysical Assist: Verbal Cues, Moderate cues, Additional assist utilized for safety Assistive Device: Hand held assist Transfer Exam: Stand to Sit Level of Harmon: Contact guard Physical/Nonphysical Assist: Verbal Cues, Additional assist utilized for safety, Moderate cues Assistive Device: Hand held assist Transfer Exam: Bed to Chair/Chair to Bed Level of Harmon: Minimum assist (75% patient's effort) Physical/Nonphysical Assist: Verbal Cues, Moderate cues, Additional assist utilized for safety, Nonverbal cues (demo/gestures) Type of Transfer: Sidesteps Assistive Device: Hand held assist Therapeutic Activity (14 minutes) See above sections for task specific interventions: bed mobility and transfers. Pt requires cueing for sequencing/safety with transfers. Pt requires increased time in sitting on EOB to acclimate to upright position. Increased time required for ICU line management and organization. Pt is lethargic this date 2/2 pain med effect. Pt required moderate cues for hand/foot placement during log rolling bed mobility and transfers for efficient use of body mechanics and momentum use. Pt educated on the importance of log rolling for mobility to adhere to abdominal surgery precautions. Pt required minimal cueing for upright posture and self-pacing for transfer to chair. Patient positioned in chair for pulmonary hygiene and tolerance to upright position. Further functional activity deferred this date 2/2 rapid fatigue with all mobility. Standardized Assessments [facility] 6-Clicks Mobility Assessment Difficulty patient has turning over in bed (including adjusting bedclothes, sheets, and blankets)?:A little Difficulty patient has sitting down on and standing up from a chair with arms (wheelchair, bedside commode, etc.)?: A little Difficulty patient has moving from lying on back to sitting on the side of the bed?: A lot How much help does the patient need moving to and from a bed to a chair (including a wheelchair)?: A lot How much help does the patient need to walk in hospital room?: A lot How much help does the patient need climbing 3-5 steps with a railing?: A lot [facility] 6-Clicks Mobility Assessment Total : 14 No data recorded Assessment Pt reassessed today following ex lap surgical intervention with ostomy placement. Pt continues to maintain overall strength and balance compared to previous PT sessions. Pt is mostly limited by activity tolerance and pain. VSS. Pt is a fall risk. Pt will continue to benefit from skilled PT servicesto decrease fall risk, progress towards independence with functional mobility, and to promote safe return to home upon d/c when appropriate. PT services recommended to optimize potential level of function. Pt is appropriate for acute rehab at this time; however, TPN is a barrier at this time. Pt would benefit from LTACH at this time as she is not safe to return home. She is a fall risk and is unable toperform ADLs independently. Pt does not have the physical assist she needs at home and was fully independent prior to hospital stay. Impairments: Decreased endurance, ventilation, and/or gas exchange, Impaired cognition/safety awareness, Impaired executive functioning, Impaired gait dynamics/performance, Impaired functional mobility/transfers, Impaired balance, Pain, Impaired postural/trunk control, Impaired motor cordination/control, Impaired locomotion, Impaired attention/alertness Activity Limitations: Inability to sit independently, Inability to ambulate household distances, Inability to transfer independently, Impaired attention/alertness, Inability to ambulate independently, Inability to complete ADLs independently, Inability to ambulate community distances Participation Restrictions: Self-care, Home management, Community leisure Activity Tolerance: Tolerates less than 10 min activity, no significant change in vital signs Evaluation/Treatment Tolerance: Patient limited by fatigue, Patient limited by pain Diagnosis: Impaired functional mobility. Rehab Potential: Good, to achieve stated therapy goals PT Recommendations Discharge Destination: LTACH Discharge Equipment: Defer to facility Plan Planned PT Interventions Balance training, Bed mobility training, Gait training, Transfer training, Functional Mobility, Postural re-education, Strengthening PT Frequency 2 - 5 times per week PT Duration 2 weeks Goals PT GOAL DETAILS DATE ASSESSED STATUS PROGRESS PT Goal 1: Pt will perform supine<>sit transfers with CGA and HOB flat, no use of bed rails. PT Goal 1 Established Date: 05/07/24 PT Goal 1 Time Frame: 2 weeks 05/25/24 Goal not met, Goal ongoing Continuing progress towards goal PT Goal 2: Pt will perform sit to stand and bed to chair transfers with Stefan and LRD. PT Goal 2 Established Date: 05/07/24 PT Goal 2 Time Frame: 2 weeks 05/25/24 Goal not met, Goal ongoing Good progress towards goal PT Goal 3: Pt will ambulate >600ft with Stefan and LRD. PT Goal 3 Established Date: 05/07/24 PT Goal 3 Time Frame: 2 weeks 05/25/24 Goal not met, Goal ongoing Continuing progress towards goal PT Goal 4: Pt will safely ascend/descend 3 steps with SBA, one handrail. PT Goal 4 Established Date: 05/07/24 PT Goal 4 Time Frame: 2 weeks 05/25/24 Goal not met, Goal ongoing Progress slower than expected, Continuing progress towards goal Written by Fariha Sands on 05/25/24 at 2:01 PM. Cosigned by Divina Yousif at 05/25/2024 2:19 PM EDT Associated attestation - Divina Yousif - 05/25/2024 2:19 PM EDT As the supervising therapist, I was present during the entire PT evaluation/treatment and have reviewed and agree with this document written by the student physical therapist for this patient on thisdate/time. Divina Yousif PT, DPT * Progress Notes - Sundeep Newsome MD - 05/25/2024 1:31 PM EDT Images from the original note were not included. CARDIOTHORACIC SURGERY PROGRESS NOTE SUBJECTIVE Acute Events/Last 24 Hrs: Pain control improving with multi-modal adjuncts including ketamine. Colostomy pink, LENA drains serosanguinous. Sinus rhythm. NGT to LIWS. Continues with TPN. OBJECTIVE All laboratory data, images, tracings, and vital sign data for past 24 hours are personally reviewed unless otherwise noted. Physical Exam VITALS (last 24h) 05/25/2024 6:00 AM 05/25/2024 7:00 AM 05/25/2024 8:00 AM 05/25/2024 9:00 AM 05/25/2024 10:00 AM 05/25/2024 11:00 AM 05/25/2024 12:00 PM Vitals Heart Rate 106 105 112 106 95 99 96 Temp 37.7 C 37.7 C 37.6 C 37.6 C 37.6 C 37.6 C 37.5 C Resp 19 15 23 16 15 17 20 O2 Delivery Method: Nasal cannula General: alert and oriented, no acute distress, resting in bed HEENT: normocephalic, atraumatic, NGT in place Eyes: no scleral icterus, normal conjunctiva Neck: supple, no trachea deviation Lungs: symmetric chest rise, non-labored breathing Heart: fast rate, well perfused Abdomen: soft, tender to palpation, abdominal drains with serosanguinous output and dressings c/d/i Extremities: no peripheral edema Skin: no rash, no cyanosis and warm to touch Psychiatric: oriented to person/place/time and normal mood/affect Intake/Output Intake/Output Summary (Last 24 hours) at 05/25/2024 1331 Last data filed at 05/25/2024 1200 Gross per 24 hour Intake 2449.65 ml Output 2150 ml Net 299.65 ml Results Labs in last 18 hours CBC WBC 41.23 (H) Hb 7.2 (L) Plt 373 (H) Hct 22.4 (L) ANC 33.52 (H) INR ??, PTT ??, Anti-Xa ?? BMP Na 138 Cl 107 BUN 20 Glu 126 (H) K 5.0 (H) Co2 25 Cr 0.91 Ca 7.7 (L) iCa ?? Mg 2.4, Phos 3.5 Lactate ?? LFT AST ?? AlkPhos ?? T Prot ?? ALK ?? Bili ?? Alb ?? D.Bili ?? Imaging No echocardiogram results found for the past 14 days No valid procedures specified. ASSESSMENT & PLAN Principal Problem: CAD, multiple vessel Active Problems: Anxiety and depression COPD (chronic obstructive pulmonary disease) (CMS/HCC) NSTEMI (non-ST elevated myocardial infarction) (CMS/HCC) GERD (gastroesophageal reflux disease) Leukocytosis Hyperlipidemia THOM (obstructive sleep apnea) S/P CABG x 4 Hypertension Cardiac volume overload Hypoglycemia Nausea with vomiting Acute blood loss anemia (ABLA) Gastric perforation (CMS/HCC) On total parenteral nutrition (TPN) Ileus (CMS/HCC) Electrolyte abnormality Post-op pain Colon perforation (CMS/HCC) 53 yrs female who underwent 4v CABG on 05/06/[address] Austin. -ASA -NPO -DVT ppx -IV metop -NGT LIWS; ensure patency with flushes (can be done by nursing) -TPN -Zosyn -BID PPI -Appreciate gen surg recs -hold diuresis and potentially volume resuscitation in addition to TPN -Music, narrative, dog, art therapy -continue ICU care Cardiothoracic Surgery 05/25/24 1:31 PM Cosigned by Maite Austin MD at 05/25/2024 9:21 PM EDT Associated attestation - Maite Austin MD - 05/25/2024 9:21 PM EDT I saw and evaluated the patient with the resident/fellow. I discussed the case with the resident/fellow and agree with the findings and plan as documented. * Progress Notes - Jose Aburto MD - 05/25/2024 10:28 AM EDT Procedures 05/25/24 Rere Hunter HPI Rere Hunter is a 53 y.o. female who presents with CAD, multiple vessel. If applicable, patient is s/p Procedure(s) and Anesthesia Type: Panel 1: * LAPAROTOMY, EXPLORATORY, possible bowel resection, possible ostomy - General Panel 2: * COLECTOMY, PARTIAL. Patient is 2 Days Post-Op with General Surgery. Past 24 hours: PM: NAEON. H and H down, repeat labs at 0800 AM: Abdomen painful and tender to touch. Nauseaous with NG output. Surgery following, appreciate recs. Ketamine IV piggyback 0.1 mg/kg TID. IV tylenol for q8h for 48 hours. Decrease metoprolol to 2.5mg IV q6. Recheck and transfuse blood if hgb <7. Can consider scan CTA abdomen if hemoglobin continues to drop. Edited by: Jose Aburto MD at 05/25/2024 1028 Lines/Drains/Tubes: Patient Lines/Drains/Airways Status Active Active LDAs Name Placement date Placement time Site Days PICC Double Lumen 05/19/24 Left Basilic vein 05/19/24 0050 Basilic vein 6 Peripheral IV 05/12/24 Anterior;Left Forearm 05/12/24 0030 Forearm 13 Peripheral IV 05/23/24 Left Hand 05/23/24 1440 Hand 1 Closed/Suction Drain 1 Inferior;Left Abdomen Bulb 19 Fr. 05/23/24 1714 Abdomen 1 Closed/Suction Drain 1 Left Abdomen Bulb 19 Fr. 05/23/24 1714 Abdomen 1 NG/OG [place] Sump 14 Fr Right nostril 05/11/24 2300 Right nostril 13 Colostomy Transverse RUQ 05/23/24 -- RUQ 2 Urethral Catheter Non-latex;Single lumen;Temperature probe 16 Fr. 05/23/24 1355 -- 1 Arterial Line 05/23/24 Right Radial 05/23/24 1440 Radial 1 Negative Pressure Wound Therapy Abdomen Lower;Upper;Mid 05/23/24 1757 Abdomen 1 GCS: Jaida Coma Scale Score: 15 Review of Systems 14 point ROS reviewed and otherwise negative or unobtainable except as noted above or in HPI. Vital signs: Vitals: 05/25/24 0600 BP: Pulse: 106 Resp: 19 Temp: 37.7 ??C (99.9 ??F) SpO2: 95% Intake/Output Summary (Last 24 hours) at 05/25/2024 1028 Last data filed at 05/25/2024 0600 Gross per 24 hour Intake 2045 ml Output 1800 ml Net 245 ml Physical Exam: Sedation was held for the purposes of examination. Physical Exam Vitals reviewed. Constitutional: General: She is not in acute distress. HENT: Head: Normocephalic and atraumatic. Mouth/Throat: Mouth: Mucous membranes are dry. Pharynx: Oropharynx is clear. Eyes: General: Vision grossly intact. Extraocular Movements: Extraocular movements intact. Pupils: Pupils are equal, round, and reactive to light. Cardiovascular: Pulses: Normal pulses. Heart sounds: Normal heart sounds. Comments: No unanticipated findings. Pulmonary: Effort: Pulmonary effort is normal. Breath sounds: Normal breath sounds and air entry. Comments: No unanticipated findings. Abdominal: Palpations: Abdomen is soft. There is no mass. Tenderness: There is abdominal tenderness (Tender in upper abdomen > lower abdomen). Comments: Stoma well-appearing. Midline incision wound vac in place. Musculoskeletal: General: No deformity. Normal range of motion. Cervical back: Normal range of motion. No rigidity. Skin: General: Skin is warm and dry. Neurological: General: No focal deficit present. Mental Status: She is alert, oriented to person, place, and time and easily aroused. Mental status is at baseline. Psychiatric: Behavior: Behavior is cooperative. Labs in last 18 hours: CBC WBC 41.23 (H) Hb 7.2 (L) Plt 373 (H) Hct 22.4 (L) ANC 33.52 (H) INR ??, PTT ??, Anti-Xa ?? BMP Na 138 Cl 107 BUN 20 Glu 126 (H) K 5.0 (H) Co2 25 Cr 0.91 Ca 7.7 (L) iCa ?? Mg 2.4, Phos 3.5 Lactate ?? LFT AST ?? AlkPhos ?? T Prot ?? ALK ?? Bili ?? Alb ?? D.Bili ?? Imaging as available: === 05/01/24 === XR CHEST 1 VIEW - Narrative - CLINICAL INDICATION: evaluation TECHNIQUE: XR CHEST 1 VIEW COMPARISON: May 24, 2024 FINDINGS: Stable support hardware. Stable cardiomediastinal silhouette. No new consolidation. Persistent layering left-sided pleural effusion. No pneumothorax. - Impression - No significant interval changes. CRITICAL RESULT: No. COMMUNICATION: Per this written report. By electronically signing this report, I, the attending physician, attest that I have personally reviewed the images/data for the above examination(s) and agree with the final edited report. Drafted by Mino Hobbs MD on 05/25/2024 8:09 AM Final report signed by Champ Oden MD on 05/25/2024 8:59 AM Reviewed and agree with above. Assessment and Plan: This patient is critically ill. Medical Problems and Relevant Plans Hospital Problems POA * (Principal) CAD, multiple vessel Yes Overview Addendum 05/23/2024 8:44 AM by Marybel Suarez, ARASH Patient presented to OSH on 05/01/24 c/o chest pain, LHC reveal mvCAD S/p CABG with Dr. Austin on 05/07 Anxiety and depression Yes Overview Addendum 05/23/2024 8:43 AM by Marybel Suarez, ARASH Continue home bupropion XL 300 mg daily Continue home citalopram 40 mg daily Continue PRN hydroxyzine 25 mg q6 COPD (chronic obstructive pulmonary disease) ([facility] [place]) Yes Overview Addendum 05/23/2024 8:43 AM by Marybel Suarez, ARASH Duo nebs q6 Wean O2 for SPO2 goal >88% NSTEMI (non-ST elevated myocardial infarction) ([facility] [place]) Yes Overview Addendum 05/22/2024 11:00 AM by Jose Aburto MD Diagnosed at OSH with elevated troponins of 0.05 to 0.23 to 0.16 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, 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 Repeat troponins pending 05/07 POD 1 4V CABG 05/09 EKG ordered and reviewed no signs of ST changes 05/10 ST 105 05/11 ST 100-105 GERD (gastroesophageal reflux disease) Yes Overview Addendum 05/14/2024 2:06 PM by Cydney Luu MD Continue Protonix 40 mg daily 05/07 extubated, no on home PPI dc'd 05/08 pt denies any GERD symptoms 05/09 + PPI for reflux 05/10 docusate, metoclopramide, miralax, senna, simethicone, continue NG to low intermitted, CLD forpt comfort, passing gas 05/11 as above denies reflux today NG clamp trial 05/14 PPI per blue surgery rec for blood tinged NG output Leukocytosis Yes Overview Addendum 05/23/2024 8:50 AM by Marybel Suarez, ARASH Remains febrile with elevated EBC Cultures ordered and pending Hyperlipidemia Yes Overview Signed 05/23/2024 8:47 AM by Marybel Suarez, AUTOMOTIVE PORTER Restart statin when no longer NPO THOM (obstructive sleep apnea) Yes Overview Addendum 05/23/2024 8:45 AM by Marybel Suarez, AUTOMOTIVE PORTER Refusing home CPAP remains on NC S/P CABG x 4 Not Applicable Overview Addendum 05/23/2024 8:45 AM by Marybel Suarez, 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 Austin Aspirin, statin, beta stacey as clinically appropriate Hypertension Yes Overview Addendum 05/23/2024 8:47 AM by Marybel Suarez, AUTOMOTIVE PORTER Metop IV while NPO Restart PO metop when appropriate Cardiac volume overload No Overview Addendum 05/18/2024 10:24 AM by Sidney Jackson MD Diuresis as clinically indicated Hypoglycemia No Overview Addendum 05/23/2024 8:46 AM by Marybel Suarez, AUTOMOTIVE PORTER Resolved once TPN started Nausea with vomiting No Overview Addendum 05/24/2024 11:04 AM by Jose Aburto MD NG in place Okay for sips and chips per surgery team Acute blood loss anemia (ABLA) No Overview Addendum 05/23/2024 8:43 AM by Marybel Suarez, AUTOMOTIVE PORTER Lab Results Component Value Date HGB 9.0 (L) 05/23/2024 CTM with daily labs Transfuse as indicated Gastric perforation (CMS/HCC) No Overview Addendum 05/24/2024 11:03 AM by Jose Aburto MD Unclear gastric vs colonic perforation. S/p ex lap with blue surgery on 05/23 On total parenteral nutrition (TPN) No Overview Signed 05/21/2024 9:26 AM by Reyna Mcdonald APRN Started on 05/20 Ileus (CMS/HCC) No Overview Signed 05/23/2024 8:49 AM by Marybel Suarez, AUTOMOTIVE PORTER - NGT for decompression - blue surgery consulted, appreciate recs - serial CT abdomen and pelvis - remains NPO, on TPN Electrolyte abnormality Yes Overview Signed 05/23/2024 8:50 AM by Marybel Suarez, ARASH - monitor and replace prn Post-op pain Unknown Overview Addendum 05/25/2024 10:12 AM by Dave Baird, DO Abdominal tenderness and pain 1010 Increase dilaudid IV ketamine Colon perforation (CMS/HCC) Unknown Overview Addendum 05/24/2024 11:04 AM by Jose Aburto MD Noted on CT scan 05/23/24 To OR with blue surgery S/p left colectomy and end colostomy Jose Aburto MD Cosigned by Edson Lewis MD at 05/25/2024 11:40 AM EDT Associated attestation - Edson Lewis MD - 05/25/2024 11:40 AM EDT I saw and evaluated the patient with the resident/fellow. I discussed the case with the resident/fellow and agree with the findings and plan as documented. * Progress Notes - Db Kline - 05/25/2024 9:23 AM EDT Pharmacist TPN Progress Note Patient: Rere Hunter Age: 53 y.o. Admission Date: [id number] Subjective/Objective/Hospital Course: 53 y.o. female with PMHx of CAD, HTN, COPD, GERD, tremor, anxiety, depression, and tobacco use, who is currently hospitalized under the care of the CVT surgery team after having a CABG on 05/06/24. Since surgery she has developed nausea, vomiting, and abdominal pain with imaging findings consistent with ileus. Patient has had inadequate energy intake likely related to ileus and has been NPO x [address] 05/20 showed intraabdominal fluid adjacent to stomach concerning for possible perforation. UGI with no perforartion. TPN consult for ileus + possible leak. 05/17: TPN consult placed 05/19: TPN initiated 05/23: CT overnight with PO contrast more convincing for colonic perforation instead of stomach perf. OR with general surgery for left hemicolectomy and colostomy creation. Problem List[1] Medical History[2] Surgical History[3] Allergies: Latex and Oxycodone LABS: Results from last 7 days Lab Units 05/25/24 0245 05/24/24 1018 05/23/24 1954 05/23/24 1939 05/23/24 1414 05/23/24 1300 05/23/24 1140 05/23/24 0540 05/23/24 0115 05/22/24 1850 05/22/24 1132 GLUCOSE mg/dL 126* 182* -- 280* 280* -- 136* -- 117* 110* 110* 126* 143* BUN mg/dL 20 28* -- 20 20 -- 13 -- 12 13 13 13 13 CREATININE mg/dL 0.91 1.18* -- 1.06 1.06 -- 0.68 -- 0.69 0.67 0.67 0.66 0.62 SODIUM mmol/L 138 137 -- 137 137 -- 137 -- 136 136 136 136 138 POTASSIUM mmol/L 5.0* 5.0* -- 5.5* 5.5* -- 4.2 -- 4.2 4.0 4.0 3.7 3.9 CHLORIDE mmol/L 107 106 -- 107 107 -- 104 -- 104 103 103 102 104 CO2 mmol/L 25 21* -- 20* 20* -- 25 -- 24 25 25 26 25 CALCIUM mg/dL 7.7* 8.1* -- 7.5* 7.5* -- 7.7* -- 7.7* 7.9* 7.9* 7.7* 7.9* CALCIUM IONIZED WB mg/dL -- -- 4.2* -- 4.4* -- 4.3* 4.3* 4.2* 4.2* 4.4* PHOSPHORUS mg/dL 3.5 -- -- 6.4* -- 4.1 -- 3.9 3.4 3.6 3.5 MAGNESIUM mg/dL 2.4 2.7* -- 1.8* -- 2.1 -- 2.0 1.9 2.0 2.0 Results from last 7 days Lab Units 05/25/24 0811 05/25/24 0245 05/24/24 1018 05/23/24 1939 05/23/24 0620 05/23/24 0540 05/23/24 0115 05/22/24 0613 05/22/24 0518 WBC 10*3/uL 41.23* 41.90* 35.21* 32.33* -- -- 19.15* 11.56* 9.98 HEMOGLOBIN g/dL 7.2* 7.5* 8.7* 11.1* 9.0* 6.7* 9.5* 9.2* 7.6* HEMATOCRIT % 22.4* 23.1* 26.8* 34.2 28.7* 21.8* 30.4* 29.4* 23.8* PLATELETS 10*3/uL 373* 352 375* 497* -- -- 558* 523* 431* Results from last 7 days Lab Units 05/25/24 0245 05/23/24 1939 05/23/24 1300 05/23/24 0540 05/23/24 0115 05/22/24 1850 05/22/24 1132 05/22/24 0613 05/21/24 0556 05/20/24 2348 05/20/24 1835 05/20/24 0215 05/19/24 1142 05/19/24 0202 ALT U/L -- 14 -- -- 14 -- -- 16 -- 22 -- 20 -- 23 AST U/L -- 26 -- -- 29 -- -- 31 -- 39* -- 53* -- 53* ALKALINE PHOSPHATASE U/L -- 97 -- -- 121* -- -- 112* -- 120* -- 117* -- 111* BILIRUBIN TOTAL mg/dL -- 0.9 -- -- 0.6 -- -- 0.7 -- 0.7 -- 0.7 -- 1.1 ALBUMIN g/dL 1.9* 1.7* 1.7* 2.1* 1.8* 2.1* 2.1* 2.0* 2.1* 1.8* < > 2.0* 2.0* < > 2.0* < > 2.1* < > = values in this interval not displayed. Nutrition Labs: Lab Results Component Value Date TRIG 76 05/19/2024 BILITOT 0.9 05/23/2024 ALBUMIN 1.9 (L) 05/25/2024 PREALBUMIN 6.5 (L) 05/09/2024 HGBA1C 5.3 05/01/2024 CRP 225.3 (H) 05/17/2024 IRON 25 (L) 05/14/2024 TIBC 156 (L) 05/14/2024 Microbiology Results Procedure Component Value Units Date/Time Blood Culture (Aerobic/Anaerobet Set) [[id number]] Collected: 05/23/24 1020 Order Status: Completed Specimen: Blood, Venous Updated: 05/24/24 1101 Culture No growth at day 1 Fungal Blood Culture [[id number]] Collected: 05/17/241812 Order Status: Completed Specimen: Blood, Venous Updated: 05/24/2438 Culture No Fungal Growth at 1 Week AFB Blood Culture [[id number]] Collected: 05/17/241812 Order Status: Completed Specimen: Blood, Venous Updated: 05/24/24637 AFB Culture No Mycobacterial Growth at 1 Week Vitals: Visit Vitals BP (!) 106/90 (BP Location: Right arm, Patient Position: Lying) Pulse 106 Temp 37.7 ??C (99.9 ??F) (Bladder) Resp 19 Jaida Coma Scale Score: 15 Shaan Scale Score: 23 Oxygen Therapy: Supplemental oxygen Skin Integrity: Other (Comment) (surgical sites, see LDA) Edema: Generalized Wt Readings from Last 3 Encounters: 05/22/24 58.6 kg (129 lb 3 oz) 06/28/23 59 kg (130 lb) 04/26/23 62.6 kg (138 lb) Current Diet Order: Dietary Orders (From admission, onward) Start Ordered 05/24/241738 NPO diet NPO except: Sips of clear liquids, Ice chips Diet effective now Question Answer Comment NPO except: Sips of clear liquids NPO except: Ice chips 05/24/241738 Current Medications aspirin, 150 mg, Rectal, Daily fat emulsion fish/plant based, 250 mL, Intravenous, Every other day heparin (porcine), 5,000 Units, Subcutaneous, q8h metoprolol tartrate, 5 mg, Intravenous, q6h pantoprazole, 40 mg, Intravenous, BID piperacillin-tazobactam, 4.5 g, Intravenous, q6h sodium chloride, 10 mL, Intravenous, q12h Adult 2-in-1 TPN, 65 mL/hr, Last Rate: 65 mL/hr (05/25/24 0600) Current Anthropometrics: Height: 154.9 cm (5' 0.98 ) Weight: 61.1 kg (134 lb 12.8 oz) [place] body weight: 47.8 kg (105 lb 4.8 oz) Adjusted ideal body weight: 52.8 kg (116 lb 5.7 oz) (126.25%) of IBW Body mass index is 25.13 kg/m??. Adjusted wt: 50.9 kg (if over 125% of IBW) CENTRAL IV Access: PICC (05/18/24) Estimated Nutritional Needs: HBE: 1153 Stress Factor: 1.2-1.4 Total Calories/day: 6029-1587 Protein (amino acids): 1.3-1.6 grams/kg Protein (Amino acids): 66-81 grams/day Measured Energy Needs: Respiratory Quotient: 05/25/2024 Plan/Recommendation: Labs reviewed. Continue goal TPN as below. Will decrease K to 30 mEq/L and continue to monitor. GOAL TPN: DEXTROSE: 18% (281 g/day CHO) AMINO ACIDS: 5% (78 g/day - 1.51 g/kg/day Amino acids) C:A 1:3, K @ 30 mEq/L @ 65 ml/hr, with 30mg/day thiamine, MVI, and Trace elements Every other day 250ml 20% SMOF lipids 1517 Total kcal/day - 29.8 kcal/kg/day GUR: 3.83 Replace electrolytes outside of TPN Calcium and/or Phosphorus supplements MUST be in a separate line from the TPN to avoid precipitation Obtain BMP, magnesium, and Phos daily x 3days and then at least twice weekly Obtain LFT and TGLY weekly I have monitored the TPN therapy, including the labs, and have communicated any modifications with the primary medical/surgical team. Continue current TPN formula and lipid regimen as above. I have communicated the TPN plan with the IV room. Thank you, Db Kline, PharmD Candidate 2024 Preceptor - Magalie CardozaD [1] Patient Active Problem List Diagnosis Anxiety and depression COPD (chronic obstructive pulmonary disease) ([facility] [place]) CAD, multiple vessel NSTEMI (non-ST elevated myocardial infarction) ([facility] [place]) GERD (gastroesophageal reflux disease) Leukocytosis Hyperlipidemia THOM (obstructive sleep apnea) S/P CABG x 4 Hypertension Cardiac volume overload Hypoglycemia Nausea with vomiting Acute blood loss anemia (ABLA) Gastric perforation (CMS/HCC) On total parenteral nutrition (TPN) Ileus (CMS/HCC) Electrolyte abnormality Colon perforation (CMS/HCC) [2] Past Medical History: Diagnosis Date Anxiety COPD (chronic obstructive pulmonary disease) (CMS/HCC) 05/01/2024 Continue Duo nebs q6 SPO2 goal >88% Depression GERD (gastroesophageal reflux disease) 05/01/2024 Continue Protonix 40 mg daily Hyperkalemia 05/06/2024 Now resolved, pt with hypokalemia requiring replacement On mechanically assisted ventilation (CMS/HCC) 05/06/2024 Arrived to ICU intubated 05/07 extubated to 4LNC 05/08 resolved Tobacco use 05/01/2024 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 Complicates all aspects of care and recovery Tremor 05/01/2024 Continue home primidone 50 mg BID [3] Past Surgical History: Procedure Laterality Date ABDOMINAL ADHESION SURGERY SECTION, CLASSIC CHOLECYSTECTOMY CORONARY ARTERY BYPASS GRAFT 05/06/2024 Coronary artery bypass grafting x4 with CHOWDARY to LAD as a free graft, reverse saphenous vein graft sequential to ramus intermedius artery then to obtuse marginal artery 1, reverse saphenous vein graftto PDA.(Reda) HAND SURGERY Right Tendon repair SHOULDER SURGERY Cosigned by Marysol Hurtado PharmD at 05/25/2024 4:22 PM EDT Associated attestation - Marysol Hurtado PharmD - 05/25/2024 4:22 PM EDT I have reviewed the students assessment and plan and agree with the below statements * Progress Notes - Betty Nino MD - 05/25/2024 9:19 AM EDT 05/25/24 Rere Hunter HPI 53F with history of HTN, HLD, COPD, GERD, tobacco use, and CAD s/p 4v CABG on 05/06 complicated by post-op ileus. SGE consulted for contained perforation (stomach versus colon) seen on CT. Interval CTscan showed progression of fluid collection between the stomach and colon, with contrast in the collection suggesting colonic perforation. 05/23: exploratory laparotomy, extended left colectomy and end colostomy creation for colonic perforation. Interval: Still having abdominal pain, similar to yesterday. She is feeling nauseous. Tachycardic to 110s, normotensive, afebrile. Having some stool out of the ostomy. Edited by: Betty Nino MD at 05/25/2024921 Relevant review of systems was obtained as able and is negative unless stated above in HPI. Vital signs: Vitals: 05/25/24599 BP: Pulse: 106 Resp: 19 Temp: 37.7 ??C (99.9 ??F) SpO2: 95% Physical Exam Constitutional: General: She is not in acute distress. Appearance: She is ill-appearing. HENT: Head: Normocephalic. Nose: Nose normal. Comments: NGT with bilious output Mouth/Throat: Pharynx: Oropharynx is clear. Eyes: Extraocular Movements: Extraocular movements intact. Conjunctiva/sclera: Conjunctivae normal. Cardiovascular: Rate and Rhythm: Tachycardia present. Pulmonary: Effort: Pulmonary effort is normal. No respiratory distress. Abdominal: Comments: Distended, but soft. Diffuse tenderness, worse in LUQ and LLQ. LLQ LENA with serosanguinousoutput. LUQ LENA with scant murky output (in old abscess cavity) Musculoskeletal: General: No swelling or deformity. Skin: General: Skin is warm. Neurological: General: No focal deficit present. Mental Status: She is alert and oriented to person, place, and time. Psychiatric: Mood and Affect: Mood normal. Behavior: Behavior normal. Intake/Output Summary (Last 24 hours) at 05/25/2024921 Last data filed at 05/25/2024 06 Gross per 24 hour Intake 2110 ml Output 1950 ml Net 160 ml Lines/Drains/Tubes: Patient Lines/Drains/Airways Status Active Airway None Output by Drain (mL) 05/23/24 07 - 05/23/24 18505/23/24 190 - 05/24/24 0659 05/24/24 07 - 05/24/24 18505/24/24 190 - 05/25/24 0659 05/25/24 0700 - 05/25/24 0922 Closed/Suction Drain 1 Inferior;Left Abdomen Bulb 19 Fr. 90 10 0 Closed/Suction Drain 1 Left Abdomen Bulb 19 Fr. 95 50 35 Labs in last 18 hours: CBC WBC 41.23 (H) Hb 7.2 (L) Plt 373 (H) Hct 22.4 (L) ANC 33.52 (H) INR ??, PTT ??, Anti-Xa ?? MCV 93 BMP Na 138 Cl 107 BUN 20 Glu 126 (H) K 5.0 (H) Co2 25 Cr 0.91 Ca 7.7 (L) iCa ?? Mg 2.4, Phos 3.5 Lactate ?? LFT AST ?? AlkPhos ?? T Prot ?? ALK ?? Bili ?? Alb ?? D.Bili ?? Lab Trends: H/H Results from last 7 days Lab Units 05/25/24 0811 05/25/24 0245 05/24/24 1018 HEMOGLOBIN g/dL 7.2* 7.5* 8.7* HEMATOCRIT % 22.4* 23.1* 26.8* INR Results from last 7 days Lab Units 05/23/24 1241 INR 1.0 Cr Results from last 7 days Lab Units 05/25/24 0245 05/24/24 1018 05/23/24 1939 CREATININE mg/dL 0.91 1.18* 1.06 1.06 Medications reviewed. Vital signs reviewed. Labs reviewed. Radiography reviewed. Assessment and Plan: 53F with history of HTN, HLD, COPD, GERD, tobacco use, and CAD s/p 4v CABG on 05/06 complicated by post-op ileus. SGE consulted for contained perforation (stomach versus colon) seen on CT. Interval CTscan showed progression of fluid collection between the stomach and colon, with contrast in the collection suggesting colonic perforation. She is s/p ex-lap, extended left colectomy and end colostomycreation for colonic perforation. Patient had a significant amount of feculent peritonitis, and sheappears to be having a SIRS/septic response to un-wilfred the contained perforation, which is not unexpected. Drain output is as expected, no evidence of bleeding or leak from rectal stump at this time. If there is concern for worsening abdominal pain or bleeding, can get repeat CT A/P with contrast. Plan: - continue zosyn for 4 days post-op (stop date 05/27) unless clinically worsens - continue NGT for now as patient is nauseous - if improves later today, can consider dc NGT and start CLD - PPI Edited by: Betty Nino MD at 05/25/2024 0846 Betty Nino MD Cosigned by Judy Mancuso MD at 05/27/2024 8:11 PM EDT Associated attestation - Judy Mancuso MD - 05/27/2024 8:11 PM EDT Having some nausea POD2, but hemodynamics and abdominal exam reassuring. Patient is appropriately having a SIRS response after surgery which unroofed feculent peritonitis. Continue antibiotics for 4dpost-op. Monitor WBC and abdominal exam. Ostomy starting to function. If patient is feeling less nausea later today, can consider slow diet advancement. Judy Mancuso MD, PhD Acute Care Surgery, Trauma and Surgical Critical Care I saw and evaluated the patient with the resident/fellow. I discussed the case with the resident/fellow and agree with the findings and plan as documented. * Progress Notes - Iman Massey MD - 05/24/2024 5:41 PM EDT Surgical ICU Daily Progress Note 05/24/24 Rere Hunter HPI 53F with history of HTN, HLD, COPD, GERD, tobacco use, and CAD s/p 4v CABG on 05/06. SGE consulted for contained perforation (stomach versus colon). 05/23: to OR with partial colectomy and ostomy creation for colonic perforation. Interval: In some pain today but sleeping comfortably after pain medication. Edited by: Iman Massey MD at 05/24/2024 4149 Relevant review of systems was obtained as able and is negative unless stated above in HPI. Vital signs: Visit Vitals BP (!) 106/90 (BP Location: Right arm, Patient Position: Lying) Pulse 102 Temp 37.1 ??C (98.8 ??F) (Bladder) Resp 13 Ht 1.549 m (5' 0.98 ) Wt 58.6 kg (129 lb 3 oz) SpO2 97% BMI 24.42 kg/m?? Smoking Status Every Day BSA 1.59 m?? Intake/Output Summary (Last 24 hours) at 05/24/2024 1741 Last data filed at 05/24/2024 1600 Gross per 24 hour Intake 3510.91 ml Output 1660 ml Net 1850.91 ml Physical Exam: Physical Exam Constitutional: General: She is not in acute distress. HENT: Head: Normocephalic. Eyes: Conjunctiva/sclera: Conjunctivae normal. Cardiovascular: Rate and Rhythm: Normal rate and regular rhythm. Pulmonary: Effort: Pulmonary effort is normal. No respiratory distress. Abdominal: General: There is no distension. Tenderness: There is abdominal tenderness (mild epigastric). Comments: [place] and drains c/d/i Skin: General: Skin is warm and dry. Neurological: Mental Status: She is alert and oriented to person, place, and time. Lines/Drains/Tubes: Patient Lines/Drains/Airways Status Active Airway None O2 Delivery Method: Nasal cannula Output by Drain (mL) 05/22/24699 - 05/22/24 18505/22/24 190 - 05/23/24 0659 05/23/24 07 - 05/23/24 18505/23/24 190 - 05/24/24 0659 05/24/24 07 - 05/24/24 1741 Closed/Suction Drain 1 Inferior;Left Abdomen Bulb 19 Fr. 90 Closed/Suction Drain 1 Left Abdomen Bulb 19 Fr. 95 Labs in last 18 hours: CBC WBC 35.21 (H) Hb 8.7 (L) Plt 375 (H) Hct 26.8 (L) ANC 28.17 (H) INR ??, PTT ??, Anti-Xa ?? BMP Na 137 Cl 106 BUN 28 (H) Glu 182 (H) K 5.0 (H) Co2 21 (L) Cr 1.18 (H) Ca 8.1 (L) iCa ?? Mg 2.7 (H), Phos ?? Lactate ?? LFT AST ?? AlkPhos ?? T Prot ?? ALK ?? Bili ?? Alb ?? D.Bili ?? Lab Trends: H/H Results from last 7 days Lab Units 05/24/24 1018 05/23/24193805/23/24 0620 HEMOGLOBIN g/dL 8.7* 11.1* 9.0* HEMATOCRIT % 26.8* 34.2 28.7* INR Results from last 7 days Lab Units 05/23/24 1241 INR 1.0 Cr Results from last 7 days Lab Units 05/24/24 1018 05/23/24193805/23/24 1300 CREATININE mg/dL 1.18* 1.06 1.06 0.68 Medications reviewed. Vital signs reviewed. Labs reviewed. Radiography reviewed. Assessment and Plan: Medical Problems and Relevant Plans Hospital Problems POA * (Principal) CAD, multiple vessel Yes Overview Addendum 05/23/2024 8:44 AM by Marybel Suarez APRN Patient presented to OSH on 05/01/24 c/o chest pain, C reveal mvCAD S/p CABG with Dr. Austin on 05/07 Anxiety and depression Yes Overview Addendum 05/23/2024 8:43 AM by Marybel Suarez APRN Continue home bupropion XL 300 mg daily Continue home citalopram 40 mg daily Continue PRN hydroxyzine 25 mg q6 COPD (chronic obstructive pulmonary disease) ([facility]/HCC) Yes Overview Addendum 05/23/2024 8:43 AM by Marybel Suarez APRN Duo nebs q6 Wean O2 for SPO2 goal >88% NSTEMI (non-ST elevated myocardial infarction) ([facility] [place]) Yes Overview Addendum 05/22/2024 11:00 AM by Jose Aburto MD Diagnosed at OSH with elevated troponins of 0.05 to 0.23 to 0.16 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, 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 Repeat troponins pending 05/07 POD 1 4V CABG 05/09 EKG ordered and reviewed no signs of ST changes 05/10 ST 105 05/11 ST 100-105 GERD (gastroesophageal reflux disease) Yes Overview Addendum 05/14/2024 2:06 PM by Cydney Luu MD Continue Protonix 40 mg daily 05/07 extubated, no on home PPI dc'd 05/08 pt denies any GERD symptoms 05/09 + PPI for reflux 05/10 docusate, metoclopramide, miralax, senna, simethicone, continue NG to low intermitted, CLD forpt comfort, passing gas 05/11 as above denies reflux today NG clamp trial 05/14 PPI per blue surgery rec for blood tinged NG output Leukocytosis Yes Overview Addendum 05/23/2024 8:50 AM by Marybel Suarez, [employer] Remains febrile with elevated EBC Cultures ordered and pending Hyperlipidemia Yes Overview Signed 05/23/2024 8:47 AM by Marybel Suarez, [employer] Restart statin when no longer NPO THOM (obstructive sleep apnea) Yes Overview Addendum 05/23/2024 8:45 AM by Marybel Suarez, [employer] Refusing home CPAP remains on NC S/P CABG x 4 Not Applicable Overview Addendum 05/23/2024 8:45 AM by Marybel Suarez, 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 Austin Aspirin, statin, beta stacey as clinically appropriate Hypertension Yes Overview Addendum 05/23/2024 8:47 AM by Marybel Suarez, [employer] Metop IV while NPO Restart PO metop when appropriate Cardiac volume overload No Overview Addendum 05/18/2024 10:24 AM by Sidney Jackson MD Diuresis as clinically indicated Hypoglycemia No Overview Addendum 05/23/2024 8:46 AM by Marybel Suarez, [employer] Resolved once TPN started Nausea with vomiting No Overview Addendum 05/24/2024 11:04 AM by Jose Aburto MD NG in place Okay for sips and chips per surgery team Acute blood loss anemia (ABLA) No Overview Addendum 05/23/2024 8:43 AM by Marybel Suarez, [employer] Lab Results Component Value Date HGB 9.0 (L) 05/23/2024 CTM with daily labs Transfuse as indicated Gastric perforation (CMS/HCC) No Overview Addendum 05/24/2024 11:03 AM by Jose Aburto MD Unclear gastric vs colonic perforation. S/p ex lap with blue surgery on 05/23 On total parenteral nutrition (TPN) No Overview Signed 05/21/2024 9:26 AM by Reyna Mcdonald [employer] Started on 05/20 Ileus (CMS/HCC) No Overview Signed 05/23/2024 8:49 AM by Marybel Suarez, [employer] - NGT for decompression - blue surgery consulted, appreciate recs - serial CT abdomen and pelvis - remains NPO, on TPN Electrolyte abnormality Yes Overview Signed 05/23/2024 8:50 AM by Marybel Suarez, [employer] - monitor and replace prn Colon perforation (CMS/HCC) Unknown Overview Addendum 05/24/2024 11:04 AM by Jose Aburto MD Noted on CT scan 05/23/24 To OR with blue surgery S/p left colectomy and end colostomy To Do: - continue antibiotics, NGT drainage - flush NGT q4 hours to ensure patency and adequate drainage - PPI - NPO, Sips and chips only for now Edited by: Iman Massey MD at 05/24/2024 1741 Iman Massey MD Procedures Cosigned by Judy Mancuso MD at 05/27/2024 8:09 PM EDT Associated attestation - Judy Mancuso MD - 05/27/2024 8:09 PM EDT Doing well POD1 after ex lap colectomy and end colostomy. Awaiting bowel function, keep NPO for now. Continue antibiotics for 4d post-op. Judy aMncuso MD, PhD Acute Care Surgery, Trauma and Surgical Critical Care I saw and evaluated the patient with the resident/fellow. I discussed the case with the resident/fellow and agree with the findings and plan as documented. * Progress Notes - Lester Lazo RN - 05/24/2024 11:56 AM EDT Images from the original note were not included. Ostomy Progress Note Visit Date: 05/24/2024 Patient Name: Rere Hunter Date of : 1970 Education other education. Pt in CVICU, drowsy and in pain, not able to participate in education at this time. Will revisit when pt more appropriate. Wound Ostomy Assessment: Colostomy Transverse RUQ (Active) 05/23/24 RUQ Present on Admission: Earliest Known Present: Placed by External Staff?: Inserted by: Bartolome [employer]giene Completed: Yes Colostomy Type: Transverse Stoma Size (cm): Earliest Known Removed: Removal Reason : Wound Image 05/24/24 1020 Stomal Appliance 2 piece;Flat Barrier/Pouch 05/24/24 1020 Site Assessment Moist;Raised;Red;Niota 05/24/24 1020 Peristomal Assessment Unable to assess 05/24/24 1020 Treatment Site care 05/23/24 2000 Output (mL) 0 mL 05/24/24 0800 Gastric Output Appearance Loose 05/24/24 1020 Gastric Output Color Brown 05/24/24 1020 Lester Lazo RN CWOCN 05/24/2024 11:56 AM * Clinician Note - Divina Yousif - 05/24/2024 11:20 AM EDT Physical Therapy Attempt Patient Name: Rere Hunter Today's Date: 05/24/2024 Patient was attempted to be seen by physical therapy 05/24/2024 for PT Re- Assessment however RN deferred session (pt with uncontrolled pain). Physical therapy team will follow-up when patient is available. Written by Divina Yousif on 05/24/24 at 11:20 AM. * Progress Notes - Edson Lewis MD - 05/24/2024 11:04 AM EDTAssociated Order(s): Critical Care Post-Procedure Diagnose(s): S/P CABG x 4 Critical Care Performed by: Edson Lewis MD Authorized by: Edson Lewis MD Critical care provider statement: Critical care time (minutes): 38 Critical care time was exclusive of: Separately billable procedures and treating other patients andteaching time Critical care was time spent personally by me on the following activities: Development of treatmentplan with patient or surrogate, ordering and performing treatments and interventions, discussions with consultants, ordering and review of laboratory studies, discussions with primary provider, ordering and review of radiographic studies, evaluation of patient's response to treatment and examination of patient Critical care statement: I saw and evaluated the patient with the resident/ fellow. I discussed thecase with the resident/ fellow and agree with the findings and plan as documented. 05/24/24 Rere Hunter HPI Rere Hunter is a 53 y.o. female who presents with CAD, multiple vessel. If applicable, patient is s/p Procedure(s) and Anesthesia Type: Panel 1: * LAPAROTOMY, EXPLORATORY, possible bowel resection, possible ostomy - General Panel 2: * COLECTOMY, PARTIAL. Patient is 1 Day Post-Op with General Surgery. Past 24 hours: PM: s/p left colectomy and end colostomy. Severe pain after OR. Given additional 0.5mg dilaudid and30 Toradol. MAPs started to sag given 250 plasmalyte. AM: Abdomen appropriately tender. HDS. Continue TPN. Follow up on surgery recs.Okay for sips and chips. Keep lines and NG. Edited by: Jose Aburto MD at 05/24/2024 1105 Lines/Drains/Tubes: Patient Lines/Drains/Airways Status Active Active LDAs Name Placement date Placement time Site Days PICC Double Lumen 05/19/24 Left Basilic vein 05/19/24 0050 Basilic vein 5 Peripheral IV 05/12/24 Anterior;Left Forearm 05/12/24 0030 Forearm 12 Peripheral IV 05/23/24 Left Hand 05/23/24 1440 Hand less than 1 Closed/Suction Drain 1 Inferior;Left Abdomen Bulb 19 Fr. 05/23/24 1714 Abdomen less than 1 Closed/Suction Drain 1 Left Abdomen Bulb 19 Fr. 05/23/24 1714 Abdomen less than 1 NG/OG [place] Sump 14 Fr Right nostril 05/11/24 2300 Right nostril 12 Colostomy Transverse RUQ 05/23/24 -- RUQ 1 Urethral Catheter Non-latex;Single lumen;Temperature probe 16 Fr. 05/23/24 1355 -- less than 1 Arterial Line 05/23/24 Right Radial 05/23/24 1440 Radial less than 1 Negative Pressure Wound Therapy Abdomen Lower;Upper;Mid 05/23/24 1757 Abdomen less than 1 GCS: [place] Coma Scale Score: 13 Review of Systems 14 point ROS reviewed and otherwise negative or unobtainable except as noted above or in HPI. Vital signs: Vitals: 05/24/24 1100 BP: Pulse: 94 Resp: 14 Temp: 36.7 ??C (98.1 ??F) SpO2: 97% Intake/Output Summary (Last 24 hours) at 05/24/2024 1105 Last data filed at 05/24/2024 0819 Gross per 24 hour Intake 4705.91 ml Output 1535 ml Net 3170.91 ml Physical Exam: Sedation was held for the purposes of examination. Physical Exam Vitals reviewed. Constitutional: General: She is not in acute distress. HENT: Head: Normocephalic and atraumatic. Mouth/Throat: Mouth: Mucous membranes are dry. Pharynx: Oropharynx is clear. Eyes: General: Vision grossly intact. Extraocular Movements: Extraocular movements intact. Pupils: Pupils are equal, round, and reactive to light. Cardiovascular: Pulses: Normal pulses. Heart sounds: Normal heart sounds. Comments: No unanticipated findings. Pulmonary: Effort: Pulmonary effort is normal. Breath sounds: Normal breath sounds and air entry. Comments: No unanticipated findings. Abdominal: Palpations: Abdomen is soft. There is no mass. Tenderness: There is abdominal tenderness. Comments: Stoma well-appearing. Midline incision wound vac in place. Musculoskeletal: General: No deformity. Normal range of motion. Cervical back: Normal range of motion. No rigidity. Skin: General: Skin is warm and dry. Neurological: General: No focal deficit present. Mental Status: She is alert, oriented to person, place, and time and easily aroused. Mental status is at baseline. Psychiatric: Behavior: Behavior is cooperative. Labs in last 18 hours: CBC WBC 32.33 (H) Hb 11.1 (L) Plt 497 (H) Hct 34.2 ANC 24.57 (H) INR ??, PTT ??, Anti-Xa ?? BMP Na 137; 137 Cl 107; 107 BUN 20; 20 Glu 280 (H); 280 (H) K 5.5 (H); 5.5 (H) Co2 20 (L); 20 (L) Cr 1.06; 1.06 Ca 7.5 (L); 7.5 (L) iCa 4.2 (L) Mg 1.8 (L), Phos 6.4 (H) Lactate 2.0 (H) LFT AST 26 AlkPhos 97 T Prot 5.4 (L) ALK 14 Bili 0.9 Alb ?? D.Bili ?? Imaging as available: === 05/01/24 === XR CHEST 1 VIEW - Narrative - CLINICAL INDICATION: evaluation TECHNIQUE: XR CHEST 1 VIEW COMPARISON: May 23, 2024 FINDINGS: Stable support hardware. Stable cardiomediastinal silhouette. No new focal consolidation. Persistent layering left-sided pleural effusion. No pneumothorax. - Impression - No significant interval changes. CRITICAL RESULT: No. COMMUNICATION: Per this written report. By electronically signing this report, I, the attending physician, attest that I have personally reviewed the images/data for the above examination(s) and agree with the final edited report. Drafted by Mino Hobbs MD on 05/24/2024 8:56 AM Final report signed by Edson Ambrose MD on 05/24/2024 9:10 AM Reviewed and agree with above. Assessment and Plan: This patient is critically ill. Medical Problems and Relevant Plans Hospital Problems POA * (Principal) CAD, multiple vessel Yes Overview Addendum 05/23/2024 8:44 AM by Marybel Suarez APRN Patient presented to OSH on 05/01/24 c/o chest pain, LHC reveal mvCAD S/p CABG with Dr. Austin on 05/07 Anxiety and depression Yes Overview Addendum 05/23/2024 8:43 AM by Daniela, Marybel D, [employer] Continue home bupropion XL 300 mg daily Continue home citalopram 40 mg daily Continue PRN hydroxyzine 25 mg q6 COPD (chronic obstructive pulmonary disease) ([facility]/HCC) Yes Overview Addendum 05/23/2024 8:43 AM by Marybel Suarez, ARASH Duo nebs q6 Wean O2 for SPO2 goal >88% NSTEMI (non-ST elevated myocardial infarction) ([facility] [place]) Yes Overview Addendum 05/22/2024 11:00 AM by Jose Aburto MD Diagnosed at OSH with elevated troponins of 0.05 to 0.23 to 0.16 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, 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 Repeat troponins pending 05/07 POD 1 4V CABG 05/09 EKG ordered and reviewed no signs of ST changes 05/10 ST 105 05/11 ST 100-105 GERD (gastroesophageal reflux disease) Yes Overview Addendum 05/14/2024 2:06 PM by Cydney Luu MD Continue Protonix 40 mg daily 05/07 extubated, no on home PPI dc'd 05/08 pt denies any GERD symptoms 05/09 + PPI for reflux 05/10 docusate, metoclopramide, miralax, senna, simethicone, continue NG to low intermitted, CLD forpt comfort, passing gas 05/11 as above denies reflux today NG clamp trial 05/14 PPI per blue surgery rec for blood tinged NG output Leukocytosis Yes Overview Addendum 05/23/2024 8:50 AM by Marybel Suarez, ARASH Remains febrile with elevated EBC Cultures ordered and pending Hyperlipidemia Yes Overview Signed 05/23/2024 8:47 AM by Marybel Suarez, [employer] Restart statin when no longer NPO THOM (obstructive sleep apnea) Yes Overview Addendum 05/23/2024 8:45 AM by Marybel Suarez, [employer] Refusing home CPAP remains on NC S/P CABG x 4 Not Applicable Overview Addendum 05/23/2024 8:45 AM by Marybel Suarez, 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 Austin Aspirin, statin, beta stacey as clinically appropriate Hypertension Yes Overview Addendum 05/23/2024 8:47 AM by Marybel Suarez, [employer] Metop IV while NPO Restart PO metop when appropriate Cardiac volume overload No Overview Addendum 05/18/2024 10:24 AM by Sidney Jackson MD Diuresis as clinically indicated Hypoglycemia No Overview Addendum 05/23/2024 8:46 AM by Marybel Suarez, [employer] Resolved once TPN started Nausea with vomiting No Overview Addendum 05/24/2024 11:04 AM by Jose Aburto MD NG in place Okay for sips and chips per surgery team Acute blood loss anemia (ABLA) No Overview Addendum 05/23/2024 8:43 AM by Marybel Suarez, [employer] Lab Results Component Value Date HGB 9.0 (L) 05/23/2024 CTM with daily labs Transfuse as indicated Gastric perforation (CMS/HCC) No Overview Addendum 05/24/2024 11:03 AM by Jose Aburto MD Unclear gastric vs colonic perforation. S/p ex lap with blue surgery on 05/23 On total parenteral nutrition (TPN) No Overview Signed 05/21/2024 9:26 AM by Reyna Mcdonald, [employer] Started on 05/20 Ileus (CMS/HCC) No Overview Signed 05/23/2024 8:49 AM by Marybel Suarez, [employer] - NGT for decompression - blue surgery consulted, appreciate recs - serial CT abdomen and pelvis - remains NPO, on TPN Electrolyte abnormality Yes Overview Signed 05/23/2024 8:50 AM by Marybel Suarez, [employer] - monitor and replace prn Colon perforation (CMS/HCC) Unknown Overview Addendum 05/24/2024 11:04 AM by Jose Aburto MD Noted on CT scan 05/23/24 To OR with blue surgery S/p left colectomy and end colostomy Jose Aburto MD * Progress Notes - Teena Jessica - 05/24/2024 10:07 AM EDT Music Therapy Note Missed Opportunity: Yes Missed Opportunity Reason: Patient unavailable Comments: Comments: Nurse reported pt had finally fallen asleep and requested MT return another time. Plan of Care: Plan of Care: Will return at another time * Progress Notes - Sundeep Newsome MD - 05/24/2024 10:00 AM EDT Images from the original note were not included. CARDIOTHORACIC SURGERY PROGRESS NOTE SUBJECTIVE Acute Events/Last 24 Hrs: yesterday went to the OR with general surgery for left hemicolectomy and colostomy creation. Patient in pain this AM. Afebrile, sinus tachy 100s on 1L NC. Abdominal drains serosanguinous. NGT to LIWS. OBJECTIVE All laboratory data, images, tracings, and vital sign data for past 24 hours are personally reviewed unless otherwise noted. Physical Exam VITALS (last 24h) 05/24/2024 2:00 AM 05/24/2024 3:00 AM 05/24/2024 3:51 AM 05/24/2024 4:00 AM 05/24/2024 5:00 AM 05/24/2024 6:00 AM 05/24/2024 7:00 AM Vitals Heart Rate 109 105 115 106 90 98 96 Temp 36.4 C 36.5 C 36.5 C 36.4 C 36.5 C 36.7 C 36.7 C Resp 20 21 22 17 13 15 17 O2 Delivery Method: Nasal cannula Insp Time (sec): 1.4 sec General: alert and oriented, no acute distress, resting in bed HEENT: normocephalic, atraumatic, NGT in place Eyes: no scleral icterus, normal conjunctiva Neck: supple, no trachea deviation Lungs: symmetric chest rise, non-labored breathing Heart: fast rate, well perfused Abdomen: soft, tender to palpation, abdominal drains with serosanguinous output and dressings c/d/i Extremities: no peripheral edema Skin: no rash, no cyanosis and warm to touch Psychiatric: oriented to person/place/time and normal mood/affect Intake/Output Intake/Output Summary (Last 24 hours) at 05/24/2024 1000 Last data filed at 05/24/2024 0700 Gross per 24 hour Intake 4695.91 ml Output 1535 ml Net 3160.91 ml Results Labs in last 18 hours CBC WBC 32.33 (H) Hb 11.1 (L) Plt 497 (H) Hct 34.2 ANC 24.57 (H) INR ??, PTT ??, Anti-Xa ?? BMP Na 137; 137 Cl 107; 107 BUN 20; 20 Glu 280 (H); 280 (H) K 5.5 (H); 5.5 (H) Co2 20 (L); 20 (L) Cr 1.06; 1.06 Ca 7.5 (L); 7.5 (L) iCa 4.2 (L) Mg 1.8 (L), Phos 6.4 (H) Lactate 2.0 (H) LFT AST 26 AlkPhos 97 T Prot 5.4 (L) ALK 14 Bili 0.9 Alb ?? D.Bili ?? Imaging No echocardiogram results found for the past 14 days No valid procedures specified. ASSESSMENT & PLAN Principal Problem: CAD, multiple vessel Active Problems: Anxiety and depression COPD (chronic obstructive pulmonary disease) (CMS/HCC) NSTEMI (non-ST elevated myocardial infarction) (CMS/HCC) GERD (gastroesophageal reflux disease) Leukocytosis Hyperlipidemia THOM (obstructive sleep apnea) S/P CABG x 4 Hypertension Cardiac volume overload Hypoglycemia Nausea with vomiting Acute blood loss anemia (ABLA) Gastric perforation (CMS/HCC) On total parenteral nutrition (TPN) Ileus (CMS/HCC) Electrolyte abnormality Colon perforation (CMS/HCC) 53 yrs female who underwent 4v CABG on 05/06/[address] Austin. -ASA -NPO -DVT ppx -IV metop -NGT LIWS; ensure patency with flushes (can be done by nursing) -TPN -Zosyn; inquire with general surgery about antibiotic duration -BID PPI -Appreciate gen surg recs -hold diuresis and potentially volume resuscitation in addition to TPN -Music, narrative, dog, art therapy -continue ICU care Cardiothoracic Surgery 05/24/24 10:00 AM Cosigned by Maite Austin MD at 05/24/2024 4:17 PM EDT Associated attestation - Maite Austin MD - 05/24/2024 4:17 PM EDT I saw and evaluated the patient with the resident/fellow. I discussed the case with the resident/fellow and agree with the findings and plan as documented. * Progress Notes - Heather Ram - 05/24/2024 8:37 AM EDT Case Management Adult Progress Note Rere Hunter 53 y.o. female CSN: [id number] Admission: 05/01/2024 11:01 PM Primary Problem: CAD, multiple vessel Anticipated Discharge Date: TBD Has Discharge Plans Changed? No Housing Circumstances: Not Applicable Housing Circumstances Action Taken: Other N/A Additional Comments SW reviewed chart for case updates. Pt is s/p 4vCABG on 05/06/24 and exploratory laparotomy and colostomy creation on 05/23/24. Pt remains in an ICU-level of care. Per MD, pt is not medically ready for DC this date. See medical notes for more detail. No further SW concerns identified at this time. SW will monitor pt's progress and will follow up with DC planning and needs as appropriate. NAYA Albarran * Pharmacy note - Db Kline - 05/24/2024 8:00 AM EDT Pharmacist TPN Progress Note Patient: Rere Hunter Age: 53 y.o. Admission Date: [id number] Subjective/Objective/Hospital Course: 53 y.o. female with PMHx of CAD, HTN, COPD, GERD, tremor, anxiety, depression, and tobacco use, who is currently hospitalized under the care of the CVT surgery team after having a CABG on 05/06/24. Since surgery she has developed nausea, vomiting, and abdominal pain with imaging findings consistent with ileus. Patient has had inadequate energy intake likely related to ileus and has been NPO x [address] 05/20 showed intraabdominal fluid adjacent to stomach concerning for possible perforation. UGI with no perforartion. TPN consult for ileus + possible leak. 05/17: TPN consult placed 05/19: TPN initiated 05/23: CT overnight with PO contrast more convincing for colonic perforation instead of stomach perf. OR with general surgery for left hemicolectomy and colostomy creation. Problem List[1] Medical History[2] Surgical History[3] Allergies: Latex and Oxycodone LABS: Results from last 7 days Lab Units 05/23/24 1954 05/23/24 1939 05/23/24 1414 05/23/24 1300 05/23/24 1140 05/23/24 0540 05/23/24 0115 05/22/24 1850 05/22/24 1132 05/22/24 0613 05/22/24 0518 05/22/24 0001 GLUCOSE mg/dL -- 280* 280* -- 136* -- 117* 110* 110* 126* 143* 115* -- 114* BUN mg/dL -- 20 20 -- 13 -- 12 13 13 13 13 12 -- 11 CREATININE mg/dL -- 1.06 1.06 -- 0.68 -- 0.69 0.67 0.67 0.66 0.62 0.61 -- 0.62 SODIUM mmol/L -- 137 137 -- 137 -- 136 136 136 136 138 139 -- 139 POTASSIUM mmol/L -- 5.5* 5.5* -- 4.2 -- 4.2 4.0 4.0 3.7 3.9 3.6 -- 4.2 CHLORIDE mmol/L -- 107 107 -- 104 -- 104 103 103 102 104 107 -- 110* CO2 mmol/L -- 20* 20* -- 25 -- 24 25 25 26 25 24 -- 22 CALCIUM mg/dL -- 7.5* 7.5* -- 7.7* -- 7.7* 7.9* 7.9* 7.7* 7.9* 7.0* -- 7.5* CALCIUM IONIZED WB mg/dL 4.2* -- 4.4* -- 4.3* 4.3* 4.2* 4.2* 4.4* 4.0* < > 4.3* PHOSPHORUS mg/dL -- 6.4* -- 4.1 -- 3.9 3.4 3.6 3.5 -- -- 3.1 MAGNESIUM mg/dL -- 1.8* -- 2.1 -- 2.0 1.9 2.0 2.0 -- -- 1.9 < > = values in this interval not displayed. Results from last 7 days Lab Units 05/23/24193805/23/24 0620 05/23/24 0540 05/23/24 0115 05/22/24 0613 05/22/24 0518 05/20/24 2348 05/20/24 0215 05/19/24 0202 WBC 10*3/uL 32.33* -- -- 19.15* 11.56* 9.98 12.88* 12.37* 14.70* HEMOGLOBIN g/dL 11.1* 9.0* 6.7* 9.5* 9.2* 7.6* 9.6* 9.1* 9.2* HEMATOCRIT % 34.2 28.7* 21.8* 30.4* 29.4* 23.8* 29.5* 28.3* 27.7* PLATELETS 10*3/uL 497* -- -- 558* 523* 431* 605* 632* 629* Results from last 7 days Lab Units 05/23/24193805/23/24 1300 05/23/24 0540 05/23/24 0115 05/22/24 1850 05/22/24 1132 05/22/24 0613 05/21/24 0556 05/20/24 2348 05/20/24 1835 05/20/24 0215 05/19/24 1142 05/19/24 0202 05/18/24 0400 ALT U/L 14 -- -- 14 -- -- 16 -- 22 -- 20 -- 23 24 AST U/L 26 -- -- 29 -- -- 31 -- 39* -- 53* -- 53* 53* ALKALINE PHOSPHATASE U/L 97 -- -- 121* -- -- 112* -- 120* -- 117* -- 111* 113* BILIRUBIN TOTAL mg/dL 0.9 -- -- 0.6 -- -- 0.7 -- 0.7 -- 0.7 -- 1.1 1.1 ALBUMIN g/dL 1.7* 1.7* 2.1* 1.8* 2.1* 2.1* 2.0* 2.1* 1.8* < > 2.0* 2.0* < > 2.0* < > 2.1* 2.1* < > = values in this interval not displayed. Nutrition Labs: Lab Results Component Value Date TRIG 76 05/19/2024 BILITOT 0.9 05/23/2024 ALBUMIN 1.7 (L) 05/23/2024 ALBUMIN 1.7 (L) 05/23/2024 PREALBUMIN 6.5 (L) 05/09/2024 HGBA1C 5.3 05/01/2024 CRP 225.3 (H) 05/17/2024 IRON 25 (L) 05/14/2024 TIBC 156 (L) 05/14/2024 Microbiology Results Procedure Component Value Units Date/Time Fungal Blood Culture [[id number]] Collected: 05/17/241812 Order Status: Completed Specimen: Blood, Venous Updated: 05/24/2438 Culture No Fungal Growth at 1 Week AFB Blood Culture [[id number]] Collected: 05/17/241812 Order Status: Completed Specimen: Blood, Venous Updated: 05/24/2438 AFB Culture No Mycobacterial Growth at 1 Week Blood Culture (Aerobic/Anaerobet Set) [[id number]] Collected: 05/23/24 1020 Order Status: Completed Specimen: Blood, Venous Updated: 05/23/24 120 Culture Culture in lab Blood Culture (Aerobic/Anaerobet Set) [[id number]] Collected: 05/17/24 1116 Order Status: Completed Specimen: Blood from Wrist, Right Updated: 05/22/24 1201 Culture No growth at day 5 Vitals: Visit Vitals BP (!) 106/90 (BP Location: Right arm, Patient Position: Lying) Pulse 96 Temp 36.7 ??C (98.1 ??F) Resp 17 Jaida Coma Scale Score: 13 Shaan Scale Score: 23 Oxygen Therapy: Supplemental oxygen Skin Integrity: Bruising Edema: Generalized Wt Readings from Last 3 Encounters: 05/22/24 58.6 kg (129 lb 3 oz) 06/28/23 59 kg (130 lb) 04/26/23 62.6 kg (138 lb) Current Diet Order: Dietary Orders (From admission, onward) Start Ordered 05/18/241717 NPO diet Diet effective now 05/18/24 1717 Current Medications aspirin, 150 mg, Rectal, Daily fat emulsion fish/plant based, 250 mL, Intravenous, Every other day heparin (porcine), 5,000 Units, Subcutaneous, q8h metoprolol tartrate, 5 mg, Intravenous, q6h pantoprazole, 40 mg, Intravenous, BID piperacillin-tazobactam, 4.5 g, Intravenous, q6h sodium chloride, 10 mL, Intravenous, q12h Adult 2-in-1 TPN, 65 mL/hr, Last Rate: 65 mL/hr (05/24/24 0700) Current Anthropometrics: Height: 154.9 cm (5' 0.98 ) Weight: 61.1 kg (134 lb 12.8 oz) [place] body weight: 47.8 kg (105 lb 4.8 oz) Adjusted ideal body weight: 52.8 kg (116 lb 5.7 oz) (126.25%) of IBW Body mass index is 25.13 kg/m??. Adjusted wt: 50.9 kg (if over 125% of IBW) CENTRAL IV Access: PICC (05/18/24) Estimated Nutritional Needs: HBE: 1153 Stress Factor: 1.2-1.4 Total Calories/day: 9868-3855 Protein (amino acids): 1.3-1.6 grams/kg Protein (Amino acids): 66-81 grams/day Measured Energy Needs: Respiratory Quotient: 05/24/2024 Plan/Recommendation: Labs reviewed. Continue goal TPN as below. Will continue to monitor. GOAL TPN: DEXTROSE: 18% (281 g/day CHO) AMINO ACIDS: 5% (78 g/day - 1.51 g/kg/day Amino acids) C:A 1:3 @ 65 ml/hr, with 30mg/day thiamine, MVI, and Trace elements Every other day 250ml 20% SMOF lipids 1517 Total kcal/day - 29.8 kcal/kg/day GUR: 3.83 Replace electrolytes outside of TPN Calcium and/or Phosphorus supplements MUST be in a separate line from the TPN to avoid precipitation Obtain BMP, magnesium, and Phos daily x 3days and then at least twice weekly Obtain LFT and TGLY weekly I have monitored the TPN therapy, including the labs, and have communicated any modifications with the primary medical/surgical team. Continue current TPN formula and lipid regimen as above. I have communicated the TPN plan with the IV room. Thank you, Db Kline, PharmD Candidate 2024 Preceptor - Moni Méndez, PharmD [1] Patient Active Problem List Diagnosis Anxiety and depression COPD (chronic obstructive pulmonary disease) (CMS/HCC) CAD, multiple vessel NSTEMI (non-ST elevated myocardial infarction) ([facility]/HCC) GERD (gastroesophageal reflux disease) Leukocytosis Hyperlipidemia THOM (obstructive sleep apnea) S/P CABG x 4 Hypertension Cardiac volume overload Hypoglycemia Nausea with vomiting Acute blood loss anemia (ABLA) Gastric perforation ([facility]/HCC) On total parenteral nutrition (TPN) Ileus ([facility] [place]) Electrolyte abnormality Colon perforation ([facility] [place]) [2] Past Medical History: Diagnosis Date Anxiety COPD (chronic obstructive pulmonary disease) (CMS/HCC) 05/01/2024 Continue Duo nebs q6 SPO2 goal >88% Depression GERD (gastroesophageal reflux disease) 05/01/2024 Continue Protonix 40 mg daily Hyperkalemia 05/06/2024 Now resolved, pt with hypokalemia requiring replacement On mechanically assisted ventilation ([facility]/HCC) 05/06/2024 Arrived to ICU intubated 05/07 extubated to 4LNC 05/08 resolved Tobacco use 05/01/2024 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 Complicates all aspects of care and recovery Tremor 05/01/2024 Continue home primidone 50 mg BID [3] Past Surgical History: Procedure Laterality Date ABDOMINAL ADHESION SURGERY SECTION, CLASSIC CHOLECYSTECTOMY CORONARY ARTERY BYPASS GRAFT 05/06/2024 Coronary artery bypass grafting x4 with CHOWDARY to LAD as a free graft, reverse saphenous vein graft sequential to ramus intermedius artery then to obtuse marginal artery 1, reverse saphenous vein graftto PDA.(Reda) HAND SURGERY Right Tendon repair SHOULDER SURGERY Cosigned by Moni Méndez, MagalieD at 05/24/2024 3:06 PM EDT Associated attestation - Moni Méndez, PharmD - 05/24/2024 3:06 PM EDT I have reviewed the students assessment and plan and agree with the below statements * Progress Notes - Iman Massey MD - 05/23/2024 2:41 PM EDT Surgical ICU Daily Progress Note 05/23/24 Rere Hunter HPI 53F with history of HTN, HLD, COPD, GERD, tobacco use, and CAD s/p 4v CABG on 05/06. SGE consulted for contained perforation (stomach versus colon). Interval: CT overnight with PO contrast more convincing for colonic perforation instead of stomach perf. Pt consented for OR for ex lap, possible partial colectomy with ostomy, possible stomach repair Edited by: Iman Masesy MD at 05/23/2024 1441 Relevant review of systems was obtained as able and is negative unless stated above in HPI. Vital signs: Visit Vitals BP (!) 106/90 (BP Location: Right arm, Patient Position: Lying) Pulse 106 Temp 36.5 ??C (97.7 ??F) (Oral) Resp 24 Ht 1.549 m (5' 0.98 ) Wt 58.6 kg (129 lb 3 oz) SpO2 95% BMI 24.42 kg/m?? Smoking Status Every Day BSA 1.59 m?? Intake/Output Summary (Last 24 hours) at 05/23/2024 1441 Last data filed at 05/23/2024 1200 Gross per 24 hour Intake 1885 ml Output 1105 ml Net 780 ml Physical Exam: Physical Exam Constitutional: General: She is not in acute distress. HENT: Head: Normocephalic. Nose: Nose normal. Comments: NG Mouth/Throat: Pharynx: Oropharynx is clear. Cardiovascular: Rate and Rhythm: Normal rate. Pulmonary: Effort: Pulmonary effort is normal. No respiratory distress. Abdominal: General: There is no distension. Palpations: Abdomen is soft. Tenderness: There is guarding (LLQ). Skin: General: Skin is warm and dry. Neurological: Mental Status: She is alert and oriented to person, place, and time. Lines/Drains/Tubes: Patient Lines/Drains/Airways Status Active Airway Name Placement date Placement time Site Days ETT ETT - single 8 mm 05/23/24 1343 Oral less than 1 O2 Delivery Method: Endotracheal tube;Mechanical ventilator Insp Time (sec): 1.2 sec Output by Drain (mL) 05/21/24 07 - 05/21/24 18505/21/24 190 - 05/22/24 0659 05/22/24 07 - 05/22/24 1859 05/22/24 190 - 05/23/24 0659 05/23/24 07 - 05/23/24 1441 Requested LDAs do not have output data documented. Labs in last 18 hours: CBC WBC 19.15 (H) Hb 9.0 (L) Plt 558 (H) Hct 28.7 (L) ANC 10.72 (H) INR 1.0, PTT ??, Anti-Xa ?? BMP Na 137 Cl 104 BUN 13 Glu 136 (H) K 4.2 Co2 25 Cr 0.68 Ca 7.7 (L) iCa 4.4 (L) Mg 2.1, Phos 4.1 Lactate 1.2 LFT AST 29 AlkPhos 121 (H) T Prot 6.4 ALK 14 Bili 0.6 Alb ?? D.Bili ?? Lab Trends: H/H Results from last 7 days Lab Units 05/23/24 0620 05/23/24 0540 05/23/24 0115 HEMOGLOBIN g/dL 9.0* 6.7* 9.5* HEMATOCRIT % 28.7* 21.8* 30.4* INR Results from last 7 days Lab Units 05/23/24 1241 05/17/24 1508 INR 1.0 1.7* Cr Results from last 7 days Lab Units 05/23/24 1300 05/23/24 0540 05/23/24 0115 CREATININE mg/dL 0.68 0.69 0.67 0.67 Radiology: I have personally reviewed and interpreted the most recent CT AP and my interpretation is that it shows oral contrast in peritoneum near splenic flexure, likely perforation in colon. Medications reviewed. Vital signs reviewed. Labs reviewed. Radiography reviewed. Assessment and Plan: Medical Problems and Relevant Plans Hospital Problems POA * (Principal) CAD, multiple vessel Yes Overview Addendum 05/23/2024 8:44 AM by Marybel Suarez APRN Patient presented to OSH on 05/01/24 c/o chest pain, LHC reveal mvCAD S/p CABG with Dr. Austin on 05/07 Anxiety and depression Yes Overview Addendum 05/23/2024 8:43 AM by Marybel Suarez APRN Continue home bupropion XL 300 mg daily Continue home citalopram 40 mg daily Continue PRN hydroxyzine 25 mg q6 COPD (chronic obstructive pulmonary disease) ([facility] [place]) Yes Overview Addendum 05/23/2024 8:43 AM by Marybel Suarez APRN Duo nebs q6 Wean O2 for SPO2 goal >88% NSTEMI (non-ST elevated myocardial infarction) ([facility] [place]) Yes Overview Addendum 05/22/2024 11:00 AM by Jose Aburto MD Diagnosed at OSH with elevated troponins of 0.05 to 0.23 to 0.16 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, 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 Repeat troponins pending 05/07 POD 1 4V CABG 05/09 EKG ordered and reviewed no signs of ST changes 05/10 ST 105 05/11 ST 100-105 GERD (gastroesophageal reflux disease) Yes Overview Addendum 05/14/2024 2:06 PM by Cydney Luu MD Continue Protonix 40 mg daily 05/07 extubated, no on home PPI dc'd 05/08 pt denies any GERD symptoms 05/09 + PPI for reflux 05/10 docusate, metoclopramide, miralax, senna, simethicone, continue NG to low intermitted, CLD forpt comfort, passing gas 05/11 as above denies reflux today NG clamp trial 05/14 PPI per blue surgery rec for blood tinged NG output Leukocytosis Yes Overview Addendum 05/23/2024 8:50 AM by Marybel Suarez, ARASH Remains febrile with elevated EBC Cultures ordered and pending Hyperlipidemia Yes Overview Signed 05/23/2024 8:47 AM by Marybel Suarez, AUTOMOTIVE PORTER Restart statin when no longer NPO THOM (obstructive sleep apnea) Yes Overview Addendum 05/23/2024 8:45 AM by Marybel Suarez, AUTOMOTIVE PORTER Refusing home CPAP remains on NC S/P CABG x 4 Not Applicable Overview Addendum 05/23/2024 8:45 AM by Marybel Suarez, 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 Austin Aspirin, statin, beta stacey as clinically appropriate Hypertension Yes Overview Addendum 05/23/2024 8:47 AM by Marybel Suarez, AUTOMOTIVE PORTER Metop IV while NPO Restart PO metop when appropriate Cardiac volume overload No Overview Addendum 05/18/2024 10:24 AM by Sidney Jackson MD Diuresis as clinically indicated Hypoglycemia No Overview Addendum 05/23/2024 8:46 AM by Marybel Suarez, AUTOMOTIVE PORTER Resolved once TPN started Nausea with vomiting No Overview Addendum 05/14/2024 1:59 PM by Cydney Luu MD - post Reglan/ Simethicone for gastric bubble - may need NG placement, continue to monitor 05/10 docusate, metoclopramide, miralax, senna, simethicone, continue NG to low intermitted, CLD forpt comfort, passing gas , + one time dose of compazine 05/11 KUB reviewed dilated seg of small bowel, NG clamp trial, BM 05/10 denies N/V today 05/12 worsening condition with leukocytosis, tachycardia, tachypnea, nausea and abd complaints- sentfor repeat Ct scan and discussed with surgery team 05/13 continued high NG output Acute blood loss anemia (ABLA) No Overview Addendum 05/23/2024 8:43 AM by Marybel Suarez, AUTOMOTIVE PORTER Lab Results Component Value Date HGB 9.0 (L) 05/23/2024 CTM with daily labs Transfuse as indicated Gastric perforation (CMS/HCC) No Overview Addendum 05/22/2024 11:10 AM by Jose Aburto MD Concern for posterior gastric perforation Not seen on UGI but would not be visualized due to posterior position Repeat CTAP 05/20 demonstrating likely posterior perforation IR and SGE state no intervention at this time 05/17: Continue zosyn and micafungin, unclear stop date at this time 05/21: TPN currently; GI PCR negative 05/22: Micafungin discontinued On total parenteral nutrition (TPN) No Overview Signed 05/21/2024 9:26 AM by Reyna Mcdonald APRN Started on 05/20 Ileus (CMS/HCC) No Overview Signed 05/23/2024 8:49 AM by Marybel Suarez AUTOMOTIVE PORTER - NGT for decompression - blue surgery consulted, appreciate recs - serial CT abdomen and pelvis - remains NPO, on TPN Electrolyte abnormality Yes Overview Signed 05/23/2024 8:50 AM by Marybel Suarez AUTOMOTIVE PORTER - monitor and replace prn Colon perforation (CMS/HCC) Unknown Overview Signed 05/23/2024 12:34 PM by Jose Aburto MD Noted on CT scan 05/23/24 To OR with blue surgery To Do: - Pt consented for OR for ex lap, possible partial colectomy with ostomy, possible stomach repair - continue antibiotics, NGT drainage - flush NGT q4 hours to ensure patency and adequate drainage - PPI - SGE will continue to follow Edited by: Iman Massey MD at 05/23/2024 1441 Iman Massey MD Procedures Cosigned by Judy Macnuso MD at 05/27/2024 8:07 PM EDT Associated attestation - Judy Mancuso MD - 05/27/2024 8:07 PM EDT OR today for ex lap and repair of hollow viscus perforation. Judy Mancuso MD, PhD Acute Care Surgery, Trauma and Surgical Critical Care I saw and evaluated the patient with the resident/fellow. I discussed the case with the resident/fellow and agree with the findings and plan as documented. * Op Note - Lidia Troncoso MD - 05/23/2024 2:19 PM EDT Operative Note Date: 05/23/24 Location: [facility] Name: Rere Hunter, : 1970, Diagnoses: Pre-op Diagnosis Colon perforation (CMS/HCC) Post-op Diagnosis Colon perforation (CMS/HCC) Procedure(s): Left colon resection, drainage of abscess Attending Surgeon(s): Panel 1: * Judy Mancuso - Primary Panel 2: * Lidia Troncoso - Primary Supply Officer(s): Panel 1: * Betty Nino MD - Resident - Assisting Anesthesia: General ASA: IV Blood Administration: Blood Product Administration History Product Date Volume Status Transfuse RBC RBC 05/23/2024 350 mL Stopped Transfuse RBC 05/17/2024 300 mL Completed 05/17/24 1446 Transfuse RBC 05/14/2024 300 mL Completed 05/14/24 1526 Transfuse RBC 05/09/2024 300 mL Completed 05/09/24 0701 Transfuse platelets PLT 05/06/2024 200 mL Completed 05/06/242107 Transfuse RBC RBC 05/06/2024 350 mL Completed 05/06/24 210 Transfuse platelets PLT 05/06/2024 208 mL Completed 05/06/242108 Transfuse RBC RBC 05/06/2024 350 mL Completed 05/06/242108 RBC 05/06/2024 350 mL Completed 05/06/24 210 RBC 05/06/2024 350 mL Completed 05/06/242108 Estimated Blood Loss: 600 mL Drains: Closed/Suction Drain 1 Inferior;Left Abdomen Bulb 19 Fr. (Active) Site Description Clean;Dry 05/24/24 0400 Dressing Status Clean;Dry;Intact 05/24/24 0400 Drainage Appearance Bloody 05/24/24 0400 Status To bulb suction 05/24/24 0400 Output (mL) 25 mL 05/24/24 0600 Closed/Suction Drain 1 Left Abdomen Bulb 19 Fr. (Active) Site Description Clean;Dry 05/24/24 0400 Dressing Status Clean;Dry;Intact 05/24/24 0400 Drainage Appearance Bloody 05/24/24 0400 Status To bulb suction 05/24/24 0400 Output (mL) 35 mL 05/24/24 06 NG/OG [place] Sump 14 Fr Right nostril (Active) Placement Verification distal tube length 05/24/24399 Tube Placement Length Marking (cm) 58 05/24/24399 Audie Exit Point with Permanent Marker Checked 05/24/24399 Site Assessment Clean;Dry;Intact 05/24/24399 Surrounding Skin Dry;Intact 05/24/24399 Secured by Tape 05/24/24399 Secured Location Right Nostril 05/24/24399 NG/OG Status Low continuous suction 05/24/24399 Drainage Appearance Bile 05/24/24399 NG/OG Interventions Skin assessed 05/23/241999 Irrigant Tap water 05/19/24 1600 Moat Interventions Other (Comment) 05/18/24799 Free water/flush (mL) 30 mL 05/23/24 0000 Intake (mL) 0 mL 05/19/241999 Output (mL) 50 mL 05/24/24599 Colostomy Transverse RUQ (Active) Stomal Appliance 1 piece 05/24/24399 Site Assessment Clean;Dry 05/24/24399 Peristomal Assessment Clean;Intact 05/24/24399 Treatment Site care 05/23/241999 Output (mL) 50 mL 05/24/24399 Gastric Output Appearance Watery 05/23/241999 Gastric Output Color Brown 05/23/241999 Urethral Catheter Non-latex;Single lumen;Temperature probe 16 Fr. (Active) Site Assessment Clean;Skin intact 05/24/24399 CAUTI: Collection Container Standard drainage bag;System closed;Collection container below bladder and tubing free of kinks 05/24/24399 CAUTI: Securement Method Securing device (Describe) 05/24/24399 CAUTI: Specimen Collection Port Covered with Alcohol Cap Yes 05/24/24399 CAUTI: Urinary Catheter Necessity Yes, meets criteria 05/24/24399 CAUTI: Urinary Catheter Necessity Reasons Q1-2 hourly urine output of critically ill patient 05/24/24399 Output (mL) 100 mL 05/24/24599 Specimen: Specimens ID Source Frozen? 1 Other (specify site) No Description: Left Colon (fresh for permanent) Findings: the left colon from distal transverse to distal sigmoid colon was ischemic and had perforated into the retroperitoneum. There was an abscess in the lesser sac in the splenic hilum. The colostomy was made at the mid- transverse colon. This will likely need a retro ileal approach to close this colostomy. Indications: Rere Hunter is an 53 y.o. female who is having surgery for Colon perforation (CMS/HCC). I was called to the OR to assist with management of a perforated colon. Narrative: I entered the OR and the patient was under general anesthesia with abdomen open. I entered the surgery and assessed the abdomen. The entire left colon was thickened and it appeared it had necrosed and fused to the left retroperitoneum. I entered the lesser sac proximal to the are of thickening. Thestomach was fused to the transverse colon mesentery. I then examined the descending and sigmoid colon. The distal sigmoid colon appeared thickened but viable. I was able to free the distal sigmoid colon and begin to free the proximal sigmoid and descending from the lateral abdominal wall. I chose the distal resection margin and divided the distal sigmoid colon with an Endo ROSEMARIE 60 purple EEA stapler. We mobilized the mesentery from the retroperitoneum then began to divided the mesentery with theLigasure device. We approached the splenic flexure again. We divided the transverse colon at it's midpoint with another fire of the Endo ROSEMARIE 60 purple stapler. We examined the medial aspect of the mesentery and freed the small bowel at the Ligament of Treitz from it's adhesions to the mesentery. We entered the abscess cavity at the splenic flexure and were able to free the colon from the adhesions to the remaining omentum and the splenic hilum. We divided the remaining mesentery with the Ligasure device. We removed the specimen from the field. We irrigated the abdomen and the abscess cavity. I turned the operation over to Dr. Mancuso and her team. I was present for my entire portion. She completed the creation of the colostomy and closure of theabdomen. At the time of surgery, the following signs of infection were present: shimon purulence, an abscess,and feculent / fibrinopurulent peritonitis. Complications: None; patient tolerated the procedure well. Submitted by: Lidia Troncoso MD - 05/24/2024 This procedure was not performed to treat colon cancer through resection * Op Note - Judy Mancuso MD - 05/23/2024 2:19 PM EDT Operative Note Date: 05/23/24 Location: [facility] Name: Rere Hunter, : 1970, Diagnoses: Pre-op Diagnosis Hollow viscus perforation Post-op Diagnosis Colon perforation (CMS/HCC) Procedure(s): Exploratory laparotomy Extensive lysis of adhesions Left colectomy (performed by colorectal surgery) End colostomy creation Abdominal washout Application of negative pressure wound VAC therapy to skin and soft tissues Attending Surgeon(s): Panel 1: * Judy Mancuso - Primary Panel 2: * Lidia Troncoso - Primary Supply Officer(s): Panel 1: * Betty Nino MD - Resident - Assisting Anesthesia: General ASA: IV Blood Administration: Blood Product Administration History Product Date Volume Status Transfuse RBC RBC 05/23/2024 350 mL Stopped Transfuse RBC 05/17/2024 300 mL Completed 05/17/24 1446 Transfuse RBC 05/14/2024 300 mL Completed 05/14/24 1526 Transfuse RBC 05/09/2024 300 mL Completed 05/09/24 0701 Transfuse platelets PLT 05/06/2024 200 mL Completed 05/06/242107 Transfuse RBC RBC 05/06/2024 350 mL Completed 05/06/242107 Transfuse platelets PLT 05/06/2024 208 mL Completed 05/06/242108 Transfuse RBC RBC 05/06/2024 350 mL Completed 05/06/242108 RBC 05/06/2024 350 mL Completed 05/06/242108 RBC 05/06/2024 350 mL Completed 05/06/242108 Estimated Blood Loss: 600 mL Drains: Closed/Suction Drain 1 Inferior;Left Abdomen Bulb 19 Fr. (Active) Site Description Clean;Dry 05/24/24 0400 Dressing Status Clean;Dry;Intact 05/24/24 0400 Drainage Appearance Bloody 05/24/24 0400 Status To bulb suction 05/24/24 0400 Output (mL) 25 mL 05/24/24 0600 Closed/Suction Drain 1 Left Abdomen Bulb 19 Fr. (Active) Site Description Clean;Dry 05/24/24399 Dressing Status Clean;Dry;Intact 05/24/24399 Drainage Appearance Bloody 05/24/24399 Status To bulb suction 05/24/24399 Output (mL) 35 mL 05/24/24 06 NG/OG Meridian Sump 14 Fr Right nostril (Active) Placement Verification distal tube length 05/24/24399 Tube Placement Length Marking (cm) 58 05/24/24399 Audie Exit Point with Permanent Marker Checked 05/24/24399 Site Assessment Clean;Dry;Intact 05/24/24399 Surrounding Skin Dry;Intact 05/24/24399 Secured by Tape 05/24/24399 Secured Location Right Nostril 05/24/24399 NG/OG Status Low continuous suction 05/24/24399 Drainage Appearance Bile 05/24/24399 NG/OG Interventions Skin assessed 05/23/241999 Irrigant Tap water 05/19/24 1600 Moat Interventions Other (Comment) 05/18/24 08 Free water/flush (mL) 30 mL 05/23/24 0000 Intake (mL) 0 mL 05/19/241999 Output (mL) 50 mL 05/24/24 06 Colostomy Transverse RUQ (Active) Stomal Appliance 1 piece 05/24/24399 Site Assessment Clean;Dry 05/24/24399 Peristomal Assessment Clean;Intact 05/24/24399 Treatment Site care 05/23/241999 Output (mL) 50 mL 05/24/24399 Gastric Output Appearance Watery 05/23/241999 Gastric Output Color Brown 05/23/241999 Urethral Catheter Non-latex;Single lumen;Temperature probe 16 Fr. (Active) Site Assessment Clean;Skin intact 05/24/24399 CAUTI: Collection Container Standard drainage bag;System closed;Collection container below bladder and tubing free of kinks 05/24/24399 CAUTI: Securement Method Securing device (Describe) 05/24/24399 CAUTI: Specimen Collection Port Covered with Alcohol Cap Yes 05/24/24399 CAUTI: Urinary Catheter Necessity Yes, meets criteria 05/24/24399 CAUTI: Urinary Catheter Necessity Reasons Q1-2 hourly urine output of critically ill patient 05/24/24 0400 Output (mL) 100 mL 05/24/24 0600 Specimen: Specimens ID Source Frozen? 1 Other (specify site) No Description: Left Colon (fresh for permanent) Findings: Large perforation of the left colon which was contained in the retroperitoneum, extended left colectomy with end transverse colostomy created. There was an abscess cavity in the lesser sac at the splenic hilum and over the pancreas. There was extensive gross spillage of stool into the abdomen from the perforation, which was irrigated copiously. 1 LENA drain was placed in the pelvis by therectal stump, and 1 LENA drain was placed into the abscess cavity in the lesser sac. Indications: Rere Hunter is an 53 y.o. female who is having surgery for Colon perforation (CMS/HCC). Patient underwent 4v CABG on 05/06 which was complicated by what was thought to be post-op ileus. Initial CT scan showed concern for fluid collection in the lesser sac which appeared to be a result of either gastric perforation, and less likely a colon perforation. Patient was monitored as she appeared to clinically improve, until 05/22 when she began to have worsening pain and leukocytosis.Repeat CT A/P showed persistence of lesser sac collection and findings more consistent with colon perforation. Given these findings, we recommended exploratory laparotomy with likely colonic resection and ostomy. Informed consent was obtained. Narrative: After obtaining informed consent, the patient was taken to the operating room and positioned in thesupine position on the operating table. Antibiotics were given preoperatively. SCDs were placed properly on the patient and turned on. General anesthesia was initiated without issues. Time out was properly performed confirming correct patient, site and procedure. The patient was prepped and draped in the usual sterile fashion. An upper midline laparotomy incision was made and dissection carried down to the level of the fascia. The fascia was incised using bovie electrocautery, peritoneum was elevated and entered sharply using Metzenbaum scissors, and the fascial incision was extended. Upon entry, the omentum was noted anjali covering the majority of her abdominal viscera. In order to obtain better visualization, the incision was extended infra-umbilically. There was dense adhesions from the omentum to anterior abdominal wall below the umbilicus which were taken down using the ligasure. Upon mobilization of the omentum from the left lateral abdominal wall, we encountered large amounts of feculent material, which were continuously suctioned. With further mobilization and adhesiolysis, it appeared that the entire left colon had necrosed, perforated in a splayed-open fashion, and then fused to the left retroperitoneum and lateral abdominal wall. There was a colon opening/hole at the splenic flexure, and a colon opening/hole at the distal sigmoid, with disintegrated colon in between. Proximally, the splenic flexure and transverse colon was thickened and densely adherent to the stomach. There appeared to be a very firm mass in the transverse colon / splenic flexure region, raising concern for possible malignancy. At this point we called our Colorectal surgery colleagues for evaluation and assistance. Please refer to Dr. Troncoso's op note for details of her portion of the procedure. The left colon specimen ultimately did not appear to contain a gross mass. After resection of the left colon, the abdomen was copiously irrigated with more than 6 liters of warm sterile saline. The abscess cavity with rind in the lesser sac was also irrigated generously. The area of posterior stomach that was adhered to the abscess had a small hematoma; this area of stomach was reinforced with three 3-0 Vicryl Lembert sutures. A 19 Fr Rogelio drain was placed in the abscess cavity lying over the pancreas. The rectal stump was tagged with two 2-0 Prolene sutures secured at either end of the staple line. A 19 Fr Rogelio drain was placed over the rectal stump. A site for the end colostomy was chosen in the right upper quadrant. A disc of skin and subcutaneous fat was excised and the fascia exposed. The anterior fascia was incised using bovie electrocautery in a cruciate fashion, the rectus muscle was spread, and the posterior fascia was also incised in a cruciate fashion. The stoma aperture was large enough to accommodate 2 fingers easily. The transverse colostomy was brought through the fascial aperture, with great care taken to ensure a tension- free colostomy without any twisting in the mesentery. We then closed the midline incision prior to maturing the ostomy. The fascia was closed using #1 PDS in a running fashion, and the periumbilical skin was approximated using sheridan. We elected to place a wound VAC in the incision above and below the umbilicus due to the degree of gross feculent contamination in the case. 1 piece of black sponge was placed in the superior portion of the incision, and 1 piece of black sponge was placed in the inferior portion.The two pieces of foam were bridged together, and the merrill pad applied. The VAC was holding suctionwith negative leak test at the conclusion of placement. The VACed wound measured 15 cm x 2 cm. The colostomy was then opened and matured in a Thalia fashion using 3-0 Vicryl suture, and an ostomy appliance was secured. There were no immediate complications. The patient tolerated procedure well. After the procedure, the patient was awakened, extubated, and taken back to the intensive care unit for recovery. All needle, instrument, and lap counts were correct at the conclusion of the case. Dr. Mancuso was present and scrubbed for the entirety of this procedure. At the time of surgery, the following signs of infection were present: shimon purulence, an abscess,and feculent / fibrinopurulent peritonitis. Complications: None; patient tolerated the procedure well. Submitted by: Betty Nino MD - 05/24/2024 This procedure was not performed to treat colon cancer through resection * Significant Event - Betty Nino MD - 05/23/2024 12:59 PM EDT Patient to OR today for exploratory laparotomy, possible bowel resection, possible ostomy - H&P note at admission/most recent progress note reviewed and with no changes - The risks, benefits, indications, contraindications, and surgical alternatives were explained to the patient. Specifically, the risks of surgery, including bleeding, infection, injury to nearby organs or structures, need for additional surgery or procedures, wound complications, and complicationsof general anesthesia. Commonly associated risks of the procedure where also discussed with the patient in detail. The patient and her daughter participated in the discussion and was given an opportunity to ask questions. - Written and informed consent was then signed and is located in the patient's chart. - NPO Betty Nino MD General Surgery PGY-3 * Progress Notes - Jose Aburto MD - 05/23/2024 12:34 PM EDT Procedures 05/23/24 Rere Hunter HPI Rere Hunter is a 53 y.o. female who presents with CAD, multiple vessel. If applicable, patient is s/p Procedure(s) and Anesthesia Type: * CABG, 2 OR MORE VESSELS - General. Patient is 17 Days Post-Op with Cardiothoracic Surgery. Past 24 hours: PM: HDS on RA. Add Robaxin IV PRN. CT Scan obtained. ECG for chest tightness that went away withoutintervention. Bloody BM. AM: Continue TPN, NPO. Reach out to blue surgery about fluid collection. Hemoglobin recheck 9.0. Continues to have nighttime fevers, Tmax 38.4. Obtain blood cultures. On 1 Lpm NC. Discontinue prn haldol, monitor for nighttime agitation/hallucinations. Patient with hematochezia. New CT results demons trating colonic defect near splenic flexure. Blue surgery posted patient for OR today. PT/INR ordered. Type and screen active. Edited by: Jose Aburto MD at 05/23/2024 1233 Lines/Drains/Tubes: Patient Lines/Drains/Airways Status Active Active LDAs Name Placement date Placement time Site Days PICC Double Lumen 05/19/24 Left Basilic vein 05/19/24 0050 Basilic vein 4 Peripheral IV 05/12/24 Anterior;Left Forearm 05/12/24 0030 Forearm 11 NG/OG Meridian Sump 14 Fr Right nostril 05/11/24 2300 Right nostril 11 GCS: [place] Coma Scale Score: 15 Review of Systems 14 point ROS reviewed and otherwise negative or unobtainable except as noted above or in HPI. Vital signs: Vitals: 05/23/24 1000 BP: 115/67 Pulse: 92 Resp: 16 Temp: SpO2: 96% Intake/Output Summary (Last 24 hours) at 05/23/2024 1234 Last data filed at 05/23/2024 1000 Gross per 24 hour Intake 1925 ml Output 1255 ml Net 670 ml Physical Exam: Sedation was held for the purposes of examination. Physical Exam Vitals reviewed. Constitutional: General: She is not in acute distress. HENT: Head: Normocephalic and atraumatic. Mouth/Throat: Mouth: Mucous membranes are dry. Pharynx: Oropharynx is clear. Eyes: General: Vision grossly intact. Extraocular Movements: Extraocular movements intact. Pupils: Pupils are equal, round, and reactive to light. Cardiovascular: Pulses: Normal pulses. Heart sounds: Normal heart sounds. Comments: No unanticipated findings. Pulmonary: Effort: Pulmonary effort is normal. Breath sounds: Normal breath sounds and air entry. Comments: No unanticipated findings. Abdominal: Palpations: Abdomen is soft. There is no mass. Tenderness: There is abdominal tenderness. Musculoskeletal: General: No deformity. Normal range of motion. Cervical back: Normal range of motion. No rigidity. Skin: General: Skin is warm and dry. Neurological: General: No focal deficit present. Mental Status: She is alert, oriented to person, place, and time and easily aroused. Mental status is at baseline. Psychiatric: Behavior: Behavior is cooperative. Labs in last 18 hours: CBC WBC 19.15 (H) Hb 9.0 (L) Plt 558 (H) Hct 28.7 (L) ANC 10.72 (H) INR ??, PTT ??, Anti-Xa ?? BMP Na 136 Cl 104 BUN 12 Glu 117 (H) K 4.2 Co2 24 Cr 0.69 Ca 7.7 (L) iCa 4.3 (L) Mg 2.0, Phos 3.9 Lactate ?? LFT AST 29 AlkPhos 121 (H) T Prot 6.4 ALK 14 Bili 0.6 Alb ?? D.Bili ?? Imaging as available: === 05/01/24 === XR CHEST 1 VIEW - Narrative - CLINICAL INDICATION: post op cardiac surgery monitoring TECHNIQUE: XR CHEST 1 VIEW COMPARISON: May 22, 2024 FINDINGS: Stable support hardware. Cardiac silhouette and mediastinal contours are stable. Small stable left pleural effusion. No new pulmonary opacities. No pneumothorax. - Impression - Stable exam. CRITICAL RESULT: No. COMMUNICATION: Per this written report. By electronically signing this report, I, the attending physician, attest that I have personally reviewed the images/data for the above examination(s) and agree with the final edited report. Drafted by GER Mckee on 05/23/2024 8:31 AM Final report signed by Champ Oden MD on 05/23/2024 9:01 AM Reviewed and agree with above. Assessment and Plan: This patient is critically ill. Medical Problems and Relevant Plans Hospital Problems POA * (Principal) CAD, multiple vessel Yes Overview Addendum 05/23/2024 8:44 AM by Marybel Suarez APRN Patient presented to OSH on 05/01/24 c/o chest pain, LHC reveal mvCAD S/p CABG with Dr. Austin on 05/07 Anxiety and depression Yes Overview Addendum 05/23/2024 8:43 AM by Marybel Suarez APRN Continue home bupropion XL 300 mg daily Continue home citalopram 40 mg daily Continue PRN hydroxyzine 25 mg q6 COPD (chronic obstructive pulmonary disease) ([facility]/HCC) Yes Overview Addendum 05/23/2024 8:43 AM by Marybel Suarez, ARASH Duo nebs q6 Wean O2 for SPO2 goal >88% NSTEMI (non-ST elevated myocardial infarction) ([facility]) Yes Overview Addendum 05/22/2024 11:00 AM by Jose Aburto MD Diagnosed at OSH with elevated troponins of 0.05 to 0.23 to 0.16 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, 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 Repeat troponins pending 05/07 POD 1 4V CABG 05/09 EKG ordered and reviewed no signs of ST changes 05/10 ST 105 05/11 ST 100-105 GERD (gastroesophageal reflux disease) Yes Overview Addendum 05/14/2024 2:06 PM by Cydney Luu MD Continue Protonix 40 mg daily 05/07 extubated, no on home PPI dc'd 05/08 pt denies any GERD symptoms 05/09 + PPI for reflux 05/10 docusate, metoclopramide, miralax, senna, simethicone, continue NG to low intermitted, CLD forpt comfort, passing gas 05/11 as above denies reflux today NG clamp trial 05/14 PPI per blue surgery rec for blood tinged NG output Leukocytosis Yes Overview Addendum 05/23/2024 8:50 AM by Mayrbel Suarez, AUTOMOTIVE PORTER Remains febrile with elevated EBC Cultures ordered and pending Hyperlipidemia Yes Overview Signed 05/23/2024 8:47 AM by Marybel Suarez, AUTOMOTIVE PORTER Restart statin when no longer NPO THOM (obstructive sleep apnea) Yes Overview Addendum 05/23/2024 8:45 AM by Marybel Suarez, AUTOMOTIVE PORTER Refusing home CPAP remains on NC S/P CABG x 4 Not Applicable Overview Addendum 05/23/2024 8:45 AM by Marybel Suarez, 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 Austin Aspirin, statin, beta stacey as clinically appropriate Hypertension Yes Overview Addendum 05/23/2024 8:47 AM by Marybel Suarez, AUTOMOTIVE PORTER Metop IV while NPO Restart PO metop when appropriate Cardiac volume overload No Overview Addendum 05/18/2024 10:24 AM by Sidney Jackson MD Diuresis as clinically indicated Hypoglycemia No Overview Addendum 05/23/2024 8:46 AM by Marybel Suarez, AUTOMOTIVE PORTER Resolved once TPN started Nausea with vomiting No Overview Addendum 05/14/2024 1:59 PM by Cydney Luu MD - post Reglan/ Simethicone for gastric bubble - may need NG placement, continue to monitor 05/10 docusate, metoclopramide, miralax, senna, simethicone, continue NG to low intermitted, CLD forpt comfort, passing gas , + one time dose of compazine 05/11 KUB reviewed dilated seg of small bowel, NG clamp trial, BM 05/10 denies N/V today 05/12 worsening condition with leukocytosis, tachycardia, tachypnea, nausea and abd complaints- sentfor repeat Ct scan and discussed with surgery team 05/13 continued high NG output Acute blood loss anemia (ABLA) No Overview Addendum 05/23/2024 8:43 AM by Marybel Suarez, AUTOMOTIVE PORTER Lab Results Component Value Date HGB 9.0 (L) 05/23/2024 CTM with daily labs Transfuse as indicated Gastric perforation (CMS/HCC) No Overview Addendum 05/22/2024 11:10 AM by Jose Aburto MD Concern for posterior gastric perforation Not seen on UGI but would not be visualized due to posterior position Repeat CTAP 05/20 demonstrating likely posterior perforation IR and SGE state no intervention at this time 05/17: Continue zosyn and micafungin, unclear stop date at this time 05/21: TPN currently; GI PCR negative 05/22: Micafungin discontinued On total parenteral nutrition (TPN) No Overview Signed 05/21/2024 9:26 AM by Reyna Mcdonald APRN Started on 05/20 Ileus (CMS/HCC) No Overview Signed 05/23/2024 8:49 AM by Marybel Suarez APRN - NGT for decompression - blue surgery consulted, appreciate recs - serial CT abdomen and pelvis - remains NPO, on TPN Electrolyte abnormality Yes Overview Signed 05/23/2024 8:50 AM by Marybel Suarez APRN - monitor and replace prn Colon perforation (CMS/HCC) Unknown Overview Signed 05/23/2024 12:34 PM by Jose Aburto MD Noted on CT scan 05/23/24 To OR with blue surgery Jose Aburto MD Cosigned by Edson Lewis MD at 05/23/2024 12:40 PM EDT Associated attestation - Edson Lewis MD - 05/23/2024 12:40 PM EDT I saw and evaluated the patient with the resident/fellow. I discussed the case with the resident/fellow and agree with the findings and plan as documented. * Progress Notes - Abhishek Amor PA - 05/23/2024 10:00 AM EDT Images from the original note were not included. CVT Progress Note 24 Hour Events/HPI: Review of Systems: A complete ROS was obtained. All were negative except as noted in HPI. Objective: All laboratory data, images, tracings, and vital sign data for past 24 hours are personally reviewed unless otherwise noted. @PATIENTWT@ , Weight: 61.1 kg (134 lb 12.8 oz) , Ht Readings from Last 1 Encounters: 05/11/24 1.549 m (5' 0.98 ) , Body mass index is 24.42 kg/m??. VITALS (last 24h) 05/23/2024 4:00 AM 05/23/2024 5:00 AM 05/23/2024 6:00 AM 05/23/2024 7:00 AM 05/23/2024 8:00 AM 05/23/2024 9:00 AM 05/23/2024 9:21 AM Vitals Systolic 106 106 116 107 123 127 127 Diastolic 62 60 68 68 67 74 74 Heart Rate 96 99 93 95 99 103 113 Temp 37.9 C Resp 14 25 16 18 18 22 O2 Delivery Method: Nasal cannula I & O Summary Intake/Output Summary (Last 24 hours) at 05/23/2024 1001 Last data filed at 05/23/2024 0500 Gross per 24 hour Intake 1835 ml Output 1410 ml Net 425 ml LABS LABS (PAST 18Labs in last 18 hours CBC WBC 19.15 (H) Hb 9.0 (L) Plt 558 (H) Hct 28.7 (L) ANC 10.72 (H) INR ??, PTT ??, Anti-Xa ?? BMP Na 136 Cl 104 BUN 12 Glu 117 (H) K 4.2 Co2 24 Cr 0.69 Ca 7.7 (L) iCa 4.3 (L) Mg 2.0, Phos 3.9 Lactate ?? LFT AST 29 AlkPhos 121 (H) T Prot 6.4 ALK 14 Bili 0.6 Alb ?? D.Bili ?? HOURS) === 05/01/24 === XR CHEST 1 VIEW - Narrative - CLINICAL INDICATION: post op cardiac surgery monitoring TECHNIQUE: XR CHEST 1 VIEW COMPARISON: May 22, 2024 FINDINGS: Stable support hardware. Cardiac silhouette and mediastinal contours are stable. Small stable left pleural effusion. No new pulmonary opacities. No pneumothorax. - Impression - Stable exam. CRITICAL RESULT: No. COMMUNICATION: Per this written report. By electronically signing this report, I, the attending physician, attest that I have personally reviewed the images/data for the above examination(s) and agree with the final edited report. Drafted by GER Mckee on 05/23/2024 8:31 AM Final report signed by Champ Oden MD on 05/23/2024 9:01 AM MEDICATIONS aspirin, 150 mg, Rectal, Daily fat emulsion fish/plant based, 250 mL, Intravenous, Every other day heparin (porcine), 5,000 Units, Subcutaneous, q8h metoprolol tartrate, 5 mg, Intravenous, q6h pantoprazole, 40 mg, Intravenous, BID piperacillin-tazobactam, 4.5 g, Intravenous, q6h sodium chloride, 10 mL, Intravenous, q12h Adult 2-in-1 TPN, 65 mL/hr, Last Rate: 65 mL/hr (05/23/24 0500) PRN medications: acetaminophen, benzocaine-menthol, hydrALAZINE, HYDROmorphone OR HYDROmorphone, ipratropium-albuterol, methocarbamol, [DISCONTINUED] ondansetron ODT OR ondansetron OR [DISCONTINUED] ondansetron, phenol, [DISCONTINUED] promethazine OR [DISCONTINUED] promethazine OR promethazine, sodium chloride, sodium chloride Physical Exam: General: alert and oriented, no acute distress, resting in bed HEENT: normocephalic, atraumatic, NGT in place Eyes: no scleral icterus, normal conjunctiva Neck: supple, no trachea deviation Lungs: symmetric chest rise, non-labored breathing Heart: fast rate, well perfused Abdomen: soft, nondistended, non tender to palpation Extremities: no peripheral edema Skin: no rash, no cyanosis and warm to touch Psychiatric: oriented to person/place/time and normal mood/affect Assessment/Plan Principal Problem: CAD, multiple vessel Active Problems: Anxiety and depression COPD (chronic obstructive pulmonary disease) (CMS/HCC) NSTEMI (non-ST elevated myocardial infarction) (CMS/HCC) GERD (gastroesophageal reflux disease) Leukocytosis Hyperlipidemia THOM (obstructive sleep apnea) S/P CABG x 4 Hypertension Cardiac volume overload Hypoglycemia Nausea with vomiting Acute blood loss anemia (ABLA) Gastric perforation (CMS/HCC) On total parenteral nutrition (TPN) Ileus (CMS/HCC) Electrolyte abnormality Colon perforation (CMS/HCC) 53 yrs female who underwent 4v CABG on 05/06/[address] Austin. -ASA -NPO -IV metop -NGT LIWS -TPN -Zosyn and Micafungin (can switch to fluc if various teams ok with it) -BID PPI -Appreciate GI, IR, and general surgery recs -Music, narrative, dog, art therapy -pull de los santos -continue ICU car * Progress Notes - Betty Casas - 05/23/2024 9:27 AM EDT Occupational Therapy Treatment Patient Name: Rere Hunter Today's Date: 05/23/2024 OT Discharge Recommendations: Acute rehab Equipment Recommended: Defer to facility Subjective I need to use the bathroom. Participants in Care Family/Caregiver Present: No Presentation Oxygen Therapy: Supplemental oxygen O2 Delivery Method: Nasal cannula O2 Flow Rate (L/min): 2 L/min Lines and Tubes: Telemetry Arterial Line 05/23/24 Right Radial (Active) NG/OG [place]idian Sump 14 Fr Right nostril (Active) Urethral Catheter Non-latex;Single lumen;Temperature probe 16 Fr. (Active) PICC Double Lumen 05/19/24 Left Basilic vein (Active) Peripheral IV 05/12/24 Anterior;Left Forearm (Active) Peripheral IV 05/23/24 Left Hand (Active) Pre-Session: Lines intact, Supine, Head of bed elevated, Bed alarm Pre-Session Comments: RN agreeable to session. Post-Session: Supine, Lines intact, RN notified, Call light in reach, Bed alarm (zone 1, 2, 3) Post-Session Comments: Pt positioned for comfort. All needs met/within reach. Blinds open. Precautions Medical Precautions: Fall precautions, Sternal Objective Pain Low back pain- unrated RN aware, hot packs provided at end of session. Positioned for comfort. Delirium Screening Urban Agitation Sedation Scale (RASS): Alert and calm Confusion Assessment Method-ICU (CAM-ICU/PCAM-ICU) Feature 1: Acute Onset or Fluctuating Course: Positive Feature 2: Inattention: Negative Feature 3: Altered Level of Consciousness: Negative Feature 4: Disorganized Thinking: Positive Overall CAM-ICU/PCAM-ICU: Negative Cognition Cognition Overall Cognitive Status: Within Functional Limits Arousal/Alertness: Appropriate responses to stimuli Mood/Behavior: Alert, Anxious Orientation Level: Oriented X4 Orientation Level Comments: Not oriented to day of the week. Single Step Commands: With increased time, With repetition Multi-Step Commands: With increased time, With repetition Method of Communication: Verbal Safety Judgment: Decreased awareness of need for assistance Awareness of Errors: Assistance required to identify errors made Deficit Awareness: Decreased awareness of deficits Attention Span: Attends with cues to redirect Transfers Toilet Transfer Level of Harmon: Contact guard Physical/Nonphysical Assist: Verbal Cues, Moderate cues Type of Transfer: Ambulation, To toilet Assistive Device: Rollator Self-Care Interventions Self Care/Home Management (ADLs) Time Entry: 24 Self_Care Interventions: Pt educated on sternal precautions prior to mobility and importance of carryover. Pt verbalized understanding but demonstrated fair carryover. Pt. participated in functional endurance tasks in preparation for high level ADL routines. In prep for walking to bathroom, pt required CGA and cues to transition to edge of bed. Pt required CGA to stand from edge of bed and walkedinto the bathroom with min A required for managing rollator in smaller space. Pt required max A forhygiene tasks due to impaired activity tolerance and decreased dynamic standing balance. Pt required s/u for hand hygiene after toileting. Pt. then completed 40ftx2 navigation task at hallway level to simulate ADL's in home environment with CGA and rollator with recliner follow. Pt required one extended seated rest break due to fatigue and anxiety. Pt reporting she needs to return to her room dueto anxiety and fatigue. Pt asked to return to bed vs recliner due to back pain. Pt educated on sitting in straight back chair vs recliner for decrease in back pain. Pt verbalized understanding. Cues also provided throughout session to promote upright posture, activity pacing, and pursed lip breathing with improved carryover noted with session progression. OT monitored vital signs closely throughout session to assess for patient???s tolerance to treatment. Assessment Pt participated in OT session with a focus on ADL retraining. Pt tolerated session with fair(-) energy for task becoming fatigued quickly with sequential task training. Pt continues to require significant physical and verbal assistance for all functional transfers and self-care tasks. Pt is at an in creased risk of falling secondary to deconditioning and impaired standing balance. Pt continues to benefit from skilled OT services to maximize independence/safety with ADLs and functional mobility. OT Recommendations Discharge Destination: Acute rehab Discharge Equipment: Defer to facility Plan Continue OT POC. Goals OT GOAL DETAILS Goal Established Date Time Frame Goal Status OT Goal 1: Pt will perform functional toilet transfer including entering/exiting bathroom with mod I using DME as needed. 05/07/24 2 weeks Goal ongoing OT Goal 2: Pt will perform three consecutive grooming activities standing at the sink with mod I using DME as needed. 05/07/24 2 weeks Goal ongoing OT Goal 3: Pt will perform three consecutive LB dressing activities in sitting/standing with mod I using DME/AE as needed. 05/07/24 2 weeks Goal ongoing OT Goal 4: Pt will verbalize/demonstrate sternal precautions with 100% accuracy in order to safely participate in her ADL routine. 05/07/24 2 weeks Goal ongoing Written by Betty Casas on 05/23/24 at 4:55 PM. * Progress Notes - Fariha Sands - 05/23/2024 9:26 AM EDT Physical Therapy Treatment Patient Name: Rere Hunter Today's Date: 05/23/2024 PT Discharge Recommendations: Acute rehab Equipment Recommended: Defer to facility Subjective My room is really cold. Pt and RN agreeable to PT treatment session this date. Participants in Care Family/Caregiver Present: No Tester Equipment: Not Applicable Presentation Oxygen Therapy: Supplemental oxygen O2 Delivery Method: Nasal cannula O2 Flow Rate (L/min): 2 L/min Lines and Tubes: Telemetry NG/OG [place] Sump 14 Fr Right nostril (Active) PICC Double Lumen 05/19/24 Left Basilic vein (Active) Peripheral IV 05/12/24 Anterior;Left Forearm (Active) Pre-Session: Lines intact, Supine, Head of bed elevated, Bed alarm Pre-Session Comments: RN agreeable to session. Post-Session: Supine, Lines intact, RN notified, Call light in reach, Bed alarm (zone 1, 2, 3) Post-Session Comments: Pt positioned for comfort. All needs met/within reach. Blinds open. Precautions Medical Precautions: Fall precautions, Sternal Objective Pain Pt does not endorse any pain this date. Pt positioned for comfort following session with pillows for UE support. RN notified. Delirium Screening Urban Agitation Sedation Scale (RASS): Alert and calm Confusion Assessment Method-ICU (CAM-ICU/PCAM-ICU) Feature 3: Altered Level of Consciousness: Negative Bed Mobility Bed Mobility Exam: Rolling/Turning Level of Harmon: Contact guard Physical/Nonphysical Assist: Verbal Cues, Nonverbal cues (demo/gestures), Additional assist utilized for safety, Moderate cues Bed Mobility Exam: Scooting/Bridging Level of Harmon: Contact guard Physical/Nonphysical Assist: Additional assist utilized for safety, Verbal Cues, Set-up required Bed Mobility Exam: Supine to Sit Level of Harmon: Contact guard Physical/Nonphysical Assist: Verbal Cues, Nonverbal cues (demo/gestures), Moderate cues, HOB elevated Bed Mobility Exam: Sit to Supine Level of Harmon: Contact guard Physical/Nonphysical Assist: HOB elevated, Nonverbal cues (demo/gestures), Verbal Cues, Moderate cues, Additional assist utilized for safety Transfers Transfer Exam: Sit to stand Level of Harmon: Contact guard Physical/Nonphysical Assist: Verbal Cues, Moderate cues, Additional assist utilized for safety Assistive Device: Rollator Transfer Exam: Stand to Sit Level of Harmon: Contact guard Physical/Nonphysical Assist: Verbal Cues, Set-up required, Additional assist utilized for safety Assistive Device: Rollator Toilet Transfer Level of Harmon: Contact guard Physical/Nonphysical Assist: Supervision, Verbal Cues, Minimal cues Type of Transfer: Sidesteps, Ambulation, To toilet Assistive Device: Rollator Therapeutic Activity (15 minutes) See above sections for task specific interventions: bed mobility and transfers. Pt requires cueing for sequencing/safety with transfers. Pt requires increased time in sitting on EOB to acclimate to upright position. Pt requested use of toilet for urgent bowel/bladder movement upon our arrival to session. Pt required cueing for LE/UE placement during bed mobility for efficient use of body mechanics and adherence to sternal precautions. Pt required verbal and tactile cueing for walker management this date for sit<>stand and toilet transfers. Pt demonstrated good balance and initiation with transfers this date. Gait Training (8 minutes) Device: Rollator Apparatus: Chair follow Assistance: Contact guard assist, Moderate verbal cues, Moderate tactile cues Distance: 40 ft + 40 ft Gait Analysis: shuffling gait, narrow JACI, inconsistent foot placement, decreased gait speed, difficulty managing rollator during ambulation Gait Training Interventions: cues provided for upright posture and safe use of rollator during ambulation Pt demonstrated decreased activity tolerance to ambulation this date compared to last ambulation attempt. Pt required verbal and tactile cueing for upright posture, increased step length, and pursed lip breathing. Pt had increased anxiety with ambulation this date and required 2 seated therapeutic rest breaks to manage anxiety. Pt required occasional reminders for walker management to safely navigate room/hallway around obstacles. Assessment Pt demo's good strength and balance this date. Pt is mostly limited by decreased activity toleranceand decreased motivation. Pt does not require physical asssitance from transfers/ambulation. VSS. Pt is a fall risk. Pt will continue to benefit from skilled PT services to decrease fall risk, progress towards independence with functional mobility, and to promote safe return to home upon d/c when appropriate. PT services recommended to optimize potential level of function. Pt requires acute rehab upon home d/c as she is currently unable to transfer and ambulate without physical assist. Pt does not have such physical assist at home. She is able to participate in 3 hoursof therapy/day and requires medical oversight of a physician. PT Recommendations Discharge Destination: Acute rehab Discharge Equipment: Defer to facility Plan Continue per PT POC. PT Goals PT GOAL DETAILS Goal Established Date Time Frame Goal Status PT Goal 1: Pt will perform supine<>sit transfers with CGA and HOB flat, no use of bed rails. 05/07/24 2 weeks Goal ongoing, Goal not met PT Goal 2: Pt will perform sit to stand and bed to chair transfers with Stefan and LRD. 05/07/24 2 weeks Goal not met, Goal ongoing PT Goal 3: Pt will ambulate >600ft with Stefan and LRD. 05/07/24 2 weeks Goal not met, Goal ongoing PT Goal 4: Pt will safely ascend/descend 3 steps with SBA, one handrail. 05/07/24 2 weeks Goal not met, Goal ongoing Written by Fariha Sands on 05/23/24 at 12:09 PM. Cosigned by Divina Yousif at 05/23/2024 1:25 PM EDT Associated attestation - Divina Yousif R - 05/23/2024 1:25 PM EDT As the supervising therapist, I was present during the entire PT evaluation/treatment and have reviewed and agree with this document written by the student physical therapist for this patient on thisdate/time. Divina Yousif PT, DPT * Pharmacy note - Db Kline C - 05/23/2024 7:55 AM EDT Pharmacist TPN Progress Note Patient: Rere Hunter Age: 53 y.o. Admission Date: [id number] Subjective/Objective/Hospital Course: 53 y.o. female with PMHx of CAD, HTN, COPD, GERD, tremor, anxiety, depression, and tobacco use, who is currently hospitalized under the care of the CVT surgery team after having a CABG on 05/06/24. Since surgery she has developed nausea, vomiting, and abdominal pain with imaging findings consistent with ileus. Patient has had inadequate energy intake likely related to ileus and has been NPO x [address] 05/20 showed intraabdominal fluid adjacent to stomach concerning for possible perforation. UGI with no perforartion. TPN consult for ileus + possible leak. 05/17: TPN consult placed 05/19: TPN initiated Problem List[1] Medical History[2] Surgical History[3] Allergies: Latex and Oxycodone LABS: Results from last 7 days Lab Units 05/23/24 0540 05/23/24 0115 05/22/24 1850 05/22/24 1132 05/22/24 0613 05/22/24 0518 05/22/24 0001 05/21/24 1800 05/21/24 1209 GLUCOSE mg/dL 117* 110* 110* 126* 143* 115* -- 114* 121* 139* BUN mg/dL 12 13 13 13 13 12 -- 11 11 13 CREATININE mg/dL 0.69 0.67 0.67 0.66 0.62 0.61 -- 0.62 0.58* 0.62 SODIUM mmol/L 136 136 136 136 138 139 -- 139 139 139 POTASSIUM mmol/L 4.2 4.0 4.0 3.7 3.9 3.6 -- 4.2 4.7 4.3 CHLORIDE mmol/L 104 103 103 102 104 107 -- 110* 109* 111* CO2 mmol/L 24 25 25 26 25 24 -- 22 23 21* CALCIUM mg/dL 7.7* 7.9* 7.9* 7.7* 7.9* 7.0* -- 7.5* 7.7* 7.5* CALCIUM IONIZED WB mg/dL 4.3* 4.2* 4.2* 4.4* 4.0* 3.4* 4.3* 4.5* 4.2* PHOSPHORUS mg/dL 3.9 3.4 3.6 3.5 -- -- 3.1 4.1 2.9 MAGNESIUM mg/dL 2.0 1.9 2.0 2.0 -- -- 1.9 2.1 2.2 Results from last 7 days Lab Units 05/23/24 0620 05/23/24 0540 05/23/24 0115 05/22/24 0613 05/22/24 0518 05/20/24 2348 05/20/24 0215 05/19/24 0202 05/18/24 0020 WBC 10*3/uL -- -- 19.15* 11.56* 9.98 12.88* 12.37* 14.70* 14.70* HEMOGLOBIN g/dL 9.0* 6.7* 9.5* 9.2* 7.6* 9.6* 9.1* 9.2* 9.6* HEMATOCRIT % 28.7* 21.8* 30.4* 29.4* 23.8* 29.5* 28.3* 27.7* 29.0* PLATELETS 10*3/uL -- -- 558* 523* 431* 605* 632* 629* 590* Results from last 7 days Lab Units 05/23/24 0540 05/23/24 0115 05/22/24 1850 05/22/24 1132 05/22/24 0613 05/22/24 0001 05/21/24 1800 05/21/24 0556 05/20/24 2348 05/20/24 1835 05/20/24 0215 05/19/24 1142 05/19/24 0202 05/18/24 0400 05/18/24 0020 ALT U/L -- 14 -- -- 16 -- -- -- 22 -- 20 -- 23 24 27 AST U/L -- 29 -- -- 31 -- -- -- 39* -- 53* -- 53* 53* 61* ALKALINE PHOSPHATASE U/L -- 121* -- -- 112* -- -- -- 120* -- 117* -- 111* 113* 115* BILIRUBIN TOTAL mg/dL -- 0.6 -- -- 0.7 -- -- -- 0.7 -- 0.7 -- 1.1 1.1 1.1 ALBUMIN g/dL 1.8* 2.1* 2.1* 2.0* 2.1* 1.8* 1.8* 1.9* < > 2.0* 2.0* < > 2.0* < > 2.1* 2.1* 2.1* < > = values in this interval not displayed. Nutrition Labs: Lab Results Component Value Date TRIG 76 05/19/2024 BILITOT 0.6 05/23/2024 ALBUMIN 1.8 (L) 05/23/2024 PREALBUMIN 6.5 (L) 05/09/2024 HGBA1C 5.3 05/01/2024 CRP 225.3 (H) 05/17/2024 IRON 25 (L) 05/14/2024 TIBC 156 (L) 05/14/2024 Microbiology Results Procedure Component Value Units Date/Time Blood Culture (Aerobic/Anaerobet Set) [[id number]] Collected: 05/17/24 1116 Order Status: Completed Specimen: Blood from Wrist, Right Updated: 05/22/24 1201 Culture No growth at day 5 Vitals: Visit Vitals BP 107/68 Pulse 95 Temp 37.9 ??C (100.2 ??F) (Bladder) Resp 18 Jaida Coma Scale Score: 15 Shaan Scale Score: 23 Oxygen Therapy: None (Room air) Skin Integrity: Bruising Edema: Generalized Wt Readings from Last 3 Encounters: 05/22/24 58.6 kg (129 lb 3 oz) 06/28/23 59 kg (130 lb) 04/26/23 62.6 kg (138 lb) Current Diet Order: Dietary Orders (From admission, onward) Start Ordered 05/18/241717 NPO diet Diet effective now 05/18/24 1717 Current Medications aspirin, 150 mg, Rectal, Daily fat emulsion fish/plant based, 250 mL, Intravenous, Every other day heparin (porcine), 5,000 Units, Subcutaneous, q8h metoprolol tartrate, 5 mg, Intravenous, q6h pantoprazole, 40 mg, Intravenous, BID piperacillin-tazobactam, 4.5 g, Intravenous, q6h sodium chloride, 10 mL, Intravenous, q12h Adult 2-in-1 TPN, 65 mL/hr, Last Rate: 65 mL/hr (05/23/24 0500) Current Anthropometrics: Height: 154.9 cm (5' 0.98 ) Weight: 61.1 kg (134 lb 12.8 oz) [place] body weight: 47.8 kg (105 lb 4.8 oz) Adjusted ideal body weight: 52.8 kg (116 lb 5.7 oz) (126.25%) of IBW Body mass index is 25.13 kg/m??. Adjusted wt: 50.9 kg (if over 125% of IBW) CENTRAL IV Access: PICC (05/18/24) Estimated Nutritional Needs: HBE: 1153 Stress Factor: 1.2-1.4 Total Calories/day: 1278-0892 Protein (amino acids): 1.3-1.6 grams/kg Protein (Amino acids): 66-81 grams/day Measured Energy Needs: Respiratory Quotient: 05/23/2024 Plan/Recommendation: Labs reviewed. Continue goal TPN as below. Will continue to monitor. GOAL TPN: DEXTROSE: 18% (281 g/day CHO) AMINO ACIDS: 5% (78 g/day - 1.51 g/kg/day Amino acids) C:A 1:3 @ 65 ml/hr, with 30mg/day thiamine, MVI, and Trace elements Every other day 250ml 20% SMOF lipids 1517 Total kcal/day - 29.8 kcal/kg/day GUR: 3.83 Replace electrolytes outside of TPN Calcium and/or Phosphorus supplements MUST be in a separate line from the TPN to avoid precipitation Obtain BMP, magnesium, and Phos daily x 3days and then at least twice weekly Obtain LFT and TGLY weekly I have monitored the TPN therapy, including the labs, and have communicated any modifications with the primary medical/surgical team. Continue current TPN formula and lipid regimen as above. I have communicated the TPN plan with the IV room. Thank you, Db Kline, MagalieD Candidate 2024 Preceptor - Moni Méndez, PharmD [1] Patient Active Problem List Diagnosis Anxiety and depression COPD (chronic obstructive pulmonary disease) ([facility] [place]) CAD, multiple vessel NSTEMI (non-ST elevated myocardial infarction) ([facility] [place]) GERD (gastroesophageal reflux disease) Leukocytosis Hyperlipidemia THOM (obstructive sleep apnea) S/P CABG x 4 Hypertension Hyperkalemia Cardiac volume overload Hypoglycemia Nausea with vomiting Acute blood loss anemia (ABLA) Gastric perforation ([facility] [place]) On total parenteral nutrition (TPN) [2] Past Medical History: Diagnosis Date Anxiety COPD (chronic obstructive pulmonary disease) ([facility] [place]) 05/01/2024 Continue Duo nebs q6 SPO2 goal >88% Depression GERD (gastroesophageal reflux disease) 05/01/2024 Continue Protonix 40 mg daily On mechanically assisted ventilation ([facility] [place]) 05/06/2024 Arrived to ICU intubated 05/07 extubated to 4LNC 05/08 resolved Tobacco use 05/01/2024 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 Complicates all aspects of care and recovery Tremor 05/01/2024 Continue home primidone 50 mg BID [3] Past Surgical History: Procedure Laterality Date ABDOMINAL ADHESION SURGERY SECTION, CLASSIC CHOLECYSTECTOMY CORONARY ARTERY BYPASS GRAFT 05/06/2024 Coronary artery bypass grafting x4 with CHOWDARY to LAD as a free graft, reverse saphenous vein graft sequential to ramus intermedius artery then to obtuse marginal artery 1, reverse saphenous vein graftto PDA.(Reda) HAND SURGERY Right Tendon repair SHOULDER SURGERY Cosigned by Moni Méndez, PharmD at 05/23/2024 2:51 PM EDT Associated attestation - Moni Méndez PharmD - 05/23/2024 2:51 PM EDT I have reviewed the students assessment and plan and agree with the below statements * Progress Notes - Teena Jessica - 05/22/2024 3:00 PM EDT Music Therapy Note Session Information: Missed Opportunity: Yes Missed Opportunity Reason: Patient unavailable Subjective: Treatment Goals & Interventions: Communications: Cognitive Responses: Physiological Responses: Heart Rate: Oxygen Saturation: Respiration Rate: Movement/Motor: Behavioral Observations: Musical Responses: Comments: Comments: Pt appeared to be asleep. Length of Visit: Plan of Care: Plan of Care: Will return at another time * Progress Notes - Millie Adams - 05/22/2024 2:14 PM EDT Art Therapy Note Session Information: IM Order: Yes Consult Requested By: Physician/ PA Reason for IM Consult: Emotional Symptoms Contact Location: Inpatient room Type of Contact: Initial visit Patient Communication: Art Therapy Comments: Pt asleep, will return at another time. Art Therapy Plan of Care: Will return at another time * Progress Notes - Teena Jessica - 05/22/2024 1:50 PM EDT Music Therapy Note Session Information: Missed Opportunity: Yes Missed Opportunity Reason: Patient unavailable Subjective: Treatment Goals & Interventions: Communications: Cognitive Responses: Physiological Responses: Heart Rate: Oxygen Saturation: Respiration Rate: Movement/Motor: Behavioral Observations: Musical Responses: Comments: Comments: Pt was meeting with medial provider. Length of Visit: Plan of Care: Plan of Care: Will return at another time * Progress Notes - Iman Massey MD - 05/22/2024 11:13 AM EDT Surgical ICU Daily Progress Note 05/22/24 Rere Nancy Stamper HPI 53F with history of HTN, HLD, COPD, GERD, tobacco use, and CAD s/p 4v CABG on 05/06. SGE consulted for contained perforation (stomach versus colon). Interval: low grade temps. BP stable and labs unremarkable. Continue NG to suction and TPN with watchful waiting. Edited by: Katelyn Lazo, ARASH at 05/22/2024 1623 Relevant review of systems was obtained as able and is negative unless stated above in HPI. Vital signs: Visit Vitals BP 105/75 (BP Location: Right arm, Patient Position: Lying) Pulse 85 Temp 37.6 ??C (99.7 ??F) (Bladder) Resp 16 Ht 1.549 m (5' 0.98 ) Wt 58.6 kg (129 lb 3 oz) SpO2 93% BMI 24.42 kg/m?? Smoking Status Every Day BSA 1.59 m?? Intake/Output Summary (Last 24 hours) at 05/22/2024 1626 Last data filed at 05/22/2024 1400 Gross per 24 hour Intake 2275 ml Output 2900 ml Net -625 ml Physical Exam: Physical Exam Constitutional: General: She is not in acute distress. HENT: Head: Normocephalic. Nose: Nose normal. Comments: NG Mouth/Throat: Pharynx: Oropharynx is clear. Cardiovascular: Rate and Rhythm: Normal rate. Pulmonary: Effort: Pulmonary effort is normal. No respiratory distress. Abdominal: General: There is no distension. Palpations: Abdomen is soft. Tenderness: There is abdominal tenderness (RLQ most focally today; tenderness improving). Skin: General: Skin is warm and dry. Neurological: Mental Status: She is alert and oriented to person, place, and time. Lines/Drains/Tubes: Patient Lines/Drains/Airways Status Active Airway None O2 Delivery Method: Nasal cannula Output by Drain (mL) 05/20/24 07 - 05/20/24 1859 05/20/241899 - 05/21/24 0659 05/21/24 07 - 05/21/24 1859 05/21/24 190 - 05/22/24 0659 05/22/24 07 - 05/22/24 1626 Requested LDAs do not have output data documented. Labs in last 18 hours: CBC WBC 11.56 (H) Hb 9.2 (L) Plt 523 (H) Hct 29.4 (L) ANC 7.98 (H) INR ??, PTT ??, Anti-Xa ?? BMP Na 138 Cl 104 BUN 13 Glu 143 (H) K 3.9 Co2 25 Cr 0.62 Ca 7.9 (L) iCa 4.4 (L) Mg 2.0, Phos 3.5 Lactate ?? LFT AST 31 AlkPhos 112 (H) T Prot 5.4 (L) ALK 16 Bili 0.7 Alb ?? D.Bili ?? Lab Trends: H/H Results from last 7 days Lab Units 05/22/24 0613 05/22/24 0518 05/20/24 2348 HEMOGLOBIN g/dL 9.2* 7.6* 9.6* HEMATOCRIT % 29.4* 23.8* 29.5* INR Results from last 7 days Lab Units 05/17/24 1508 INR 1.7* Cr Results from last 7 days Lab Units 05/22/24 1132 05/22/24 0613 05/22/24 0001 CREATININE mg/dL 0.62 0.61 0.62 Radiology: I have personally reviewed and interpreted the most recent CXR and my interpretation is that it shows small left pleural effusion without evidence of pneumonia or pneumothorax. No visibile subdiaphragmatic free air visible. Medications reviewed. Vital signs reviewed. Labs reviewed. Radiography reviewed. 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 DVT pro, remove CT 05/11 ASA/statin/BB Anxiety and depression Yes Overview Addendum 05/13/2024 12:37 PM by Christi Sherman APRN 05/07 Continue home bupropion XL 300 mg daily Continue home citalopram 40 mg daily Continue PRN hydroxyzine 25 mg q6 COPD (chronic obstructive pulmonary disease) ([facility] [place]) Yes Overview Addendum 05/12/2024 12:27 PM by Christi Sherman APRN 05/07 Duo nebs q6 SPO2 goal >88% On 4LNC 05/08 on 2LNC 05/09 on 2LNC +40 lasix 05/12 ongoing 3L NSTEMI (non-ST elevated myocardial infarction) ([facility] [place]) Yes Overview Addendum 05/22/2024 11:00 AM by Jose Aburto MD Diagnosed at OSH with elevated troponins of 0.05 to 0.23 to 0.16 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, 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 Repeat troponins pending 05/07 POD 1 4V CABG 05/09 EKG ordered and reviewed no signs of ST changes 05/10 ST 105 05/11 ST 100-105 GERD (gastroesophageal reflux disease) Yes Overview Addendum 05/14/2024 2:06 PM by Cydney Luu MD Continue Protonix 40 mg daily 05/07 extubated, no on home PPI dc'd 05/08 pt denies any GERD symptoms 05/09 + PPI for reflux 05/10 docusate, metoclopramide, miralax, senna, simethicone, continue NG to low intermitted, CLD forpt comfort, passing gas 05/11 as above denies reflux today NG clamp trial 05/14 PPI per blue surgery rec for blood tinged NG output Leukocytosis Yes Overview Signed 05/13/2024 12:38 PM by Christi Sherman APRN trending Hyperlipidemia Yes THOM (obstructive sleep apnea) Yes Overview Addendum 05/09/2024 11:15 AM by Miguel Downey MD 05/07 pt declines home CPAP use 05/08 on 2lNC 05/09 96% on 2lNC S/P CABG x 4 Not Applicable Overview Addendum 05/12/2024 12:26 PM by Christi Sherman APRN 05/06 w/Reda 4 chest tubes (mediastinal x2, left pleural, right pleural) A&V wires SBP <140 Aspirin, statin, beta stacey as clinically appropriate 05/07 epi .03 weaning, holding beta block (epi .03) 05/09 off all gtts NSR continue ICU level of care per CT surg Hypertension Yes Overview Addendum 05/21/2024 9:43 AM by Reyna Mcdonald APRN Requiring nitroglycerin gtt upon arrival to ICU 05/07 off gtts, SBP within goal 05/09: increased metop to 50 BID 05/21: restarting metop IV q6hrs Hyperkalemia No Overview Addendum 05/12/2024 12:28 PM by Christi Sherman APRN Intro op max 7.3 Received dextrose, insulin, calcium, lasix intra-op Now resolved, pt with hypokalemia requiring replacement Cardiac volume overload No Overview Addendum 05/18/2024 10:24 AM by Sidney Jackson MD Diuresis as clinically indicated Hypoglycemia No Overview Addendum 05/13/2024 12:40 PM by Christi Sherman APRN - continue to monitor, checking LFTs On d5 LR at 75 Nausea with vomiting No Overview Addendum 05/14/2024 1:59 PM by Cydney Luu MD - post Reglan/ Simethicone for gastric bubble - may need NG placement, continue to monitor 05/10 docusate, metoclopramide, miralax, senna, simethicone, continue NG to low intermitted, CLD forpt comfort, passing gas , + one time dose of compazine 05/11 KUB reviewed dilated seg of small bowel, NG clamp trial, BM 05/10 denies N/V today 05/12 worsening condition with leukocytosis, tachycardia, tachypnea, nausea and abd complaints- sentfor repeat Ct scan and discussed with surgery team 05/13 continued high NG output Acute blood loss anemia (ABLA) No Overview Signed 05/14/2024 2:01 PM by Cydney Luu MD Lab Results Component Value Date HGB 7.2 (L) 05/14/202405/14 iron studies sent, 1u pRBCs Gastric perforation (CMS/HCC) Unknown Overview Addendum 05/22/2024 11:10 AM by Jose Aburto MD Concern for posterior gastric perforation Not seen on UGI but would not be visualized due to posterior position Repeat CTAP 05/20 demonstrating likely posterior perforation IR and SGE state no intervention at this time 05/17: Continue zosyn and micafungin, unclear stop date at this time 05/21: TPN currently; GI PCR negative 05/22: Micafungin discontinued On total parenteral nutrition (TPN) Unknown Overview Signed 05/21/2024 9:26 AM by Reyna Mcdonald APRN Started on 05/20 To Do: - Rpt CT AP with IV and PO contrast (need noncon CT prior to ensure contrast is gone from prior scans) - No acute surgical intervention due to location of possible perf and contained nature - continue antibiotics, NGT drainage - flush NGT q4 hours to ensure patency and adequate drainage -TPN for parenteral nutrition, NPO - PPI - If exam changes or signs consistent with worsening infection, can consider surgical intervention - SGE will continue to follow Edited by: Iman Massey MD at 05/22/2024 1626 Iman Massey MD Procedures Cosigned by Judy Mancuso MD at 05/27/2024 8:06 PM EDT Associated attestation - Judy Mancuso MD - 05/27/2024 8:[address] scan with PO and IV contrast. Judy Mancuso MD, PhD Acute Care Surgery, Trauma and Surgical Critical Care I saw and evaluated the patient with the resident/fellow. I discussed the case with the resident/fellow and agree with the findings and plan as documented. * Progress Notes - Jose Aburto MD - 05/22/2024 11:11 AM EDT Procedures 05/22/24 Rere Hunter HPI Rere Hunter is a 53 y.o. female who presents with CAD, multiple vessel. If applicable, patient is s/p Procedure(s) and Anesthesia Type: * CABG, 2 OR MORE VESSELS - General. Patient is 16 Days Post-Op with Cardiothoracic Surgery. Past 24 hours: PM: NAEON. HDS on RA. 1x dose IV tylenol. 20 IV lasix. AM: Continue TPN, NPO. [place] removed. Micafungin discontinued, continue zosyn. Edited by: Jose Aburto MD at 05/22/2024 1059 Lines/Drains/Tubes: Patient Lines/Drains/Airways Status Active Active LDAs Name Placement date Placement time Site Days PICC Double Lumen 05/19/24 Left Basilic vein 05/19/24 0050 Basilic vein 3 Peripheral IV 05/12/24 Anterior;Left Forearm 05/12/24 0030 Forearm 10 NG/OG [place] Sump 14 Fr Right nostril 05/11/24 2300 Right nostril 10 Urethral Catheter Temperature probe 05/17/24 1430 -- 4 GCS: [place] Coma Scale Score: 15 Review of Systems 14 point ROS reviewed and otherwise negative or unobtainable except as noted above or in HPI. Vital signs: Vitals: 05/22/24 0700 BP: 109/64 Pulse: 95 Resp: 23 Temp: 37.3 ??C (99.1 ??F) SpO2: 91% Intake/Output Summary (Last 24 hours) at 05/22/2024 1111 Last data filed at 05/22/2024 1000 Gross per 24 hour Intake 2420 ml Output 3025 ml Net -605 ml Physical Exam: Sedation was held for the purposes of examination. Physical Exam Vitals reviewed. Constitutional: General: She is not in acute distress. HENT: Head: Normocephalic and atraumatic. Mouth/Throat: Mouth: Mucous membranes are dry. Pharynx: Oropharynx is clear. Eyes: General: Vision grossly intact. Extraocular Movements: Extraocular movements intact. Pupils: Pupils are equal, round, and reactive to light. Cardiovascular: Pulses: Normal pulses. Heart sounds: Normal heart sounds. Comments: No unanticipated findings. Pulmonary: Effort: Pulmonary effort is normal. Breath sounds: Normal breath sounds and air entry. Comments: No unanticipated findings. Abdominal: Palpations: Abdomen is soft. There is no mass. Tenderness: There is abdominal tenderness. Musculoskeletal: General: No deformity. Normal range of motion. Cervical back: Normal range of motion. No rigidity. Skin: General: Skin is warm and dry. Neurological: General: No focal deficit present. Mental Status: She is alert, oriented to person, place, and time and easily aroused. Mental status is at baseline. Psychiatric: Behavior: Behavior is cooperative. Labs in last 18 hours: CBC WBC 11.56 (H) Hb 9.2 (L) Plt 523 (H) Hct 29.4 (L) ANC 7.98 (H) INR ??, PTT ??, Anti-Xa ?? BMP Na 139 Cl 107 BUN 12 Glu 115 (H) K 3.6 Co2 24 Cr 0.61 Ca 7.0 (L) iCa 4.0 (L) Mg 1.9, Phos 3.1 Lactate ?? LFT AST 31 AlkPhos 112 (H) T Prot 5.4 (L) ALK 16 Bili 0.7 Alb ?? D.Bili ?? Imaging as available: === 05/01/24 === XR CHEST 1 VIEW - Narrative - CLINICAL INDICATION: post op cardiac surgery monitoring TECHNIQUE: XR CHEST 1 VIEW COMPARISON: May 21, 2024. FINDINGS: Stable support hardware. Cardiac silhouette and mediastinal contours are stable. Small increased left pleural effusion. No pneumothorax. No new pulmonary opacities. - Impression - Small left pleural effusion. CRITICAL RESULT: No. COMMUNICATION: Per this written report. By electronically signing this report, I, the attending physician, attest that I have personally reviewed the images/data for the above examination(s) and agree with the final edited report. Drafted by GER Mckee on 05/22/2024 8:42 AM Final report signed by Edson Ambrose MD on 05/22/2024 8:56 AM Reviewed and agree with above. Assessment and Plan: This patient is critically ill. 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 DVT pro, remove CT 05/11 ASA/statin/BB Anxiety and depression Yes Overview Addendum 05/13/2024 12:37 PM by Christi Sherman, AUTOMOTIVE PORTER 05/07 Continue home bupropion XL 300 mg daily Continue home citalopram 40 mg daily Continue PRN hydroxyzine 25 mg q6 COPD (chronic obstructive pulmonary disease) ([facility] [place]) Yes Overview Addendum 05/12/2024 12:27 PM by Christi Sherman, AUTOMOTIVE PORTER 05/07 Duo nebs q6 SPO2 goal >88% On 4LNC 05/08 on 2LNC 05/09 on 2LNC +40 lasix 05/12 ongoing 3L NSTEMI (non-ST elevated myocardial infarction) ([facility] [place]) Yes Overview Addendum 05/22/2024 11:00 AM by Jose Aburto MD Diagnosed at OSH with elevated troponins of 0.05 to 0.23 to 0.16 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, 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 Repeat troponins pending 05/07 POD 1 4V CABG 05/09 EKG ordered and reviewed no signs of ST changes 05/10 ST 105 05/11 ST 100-105 GERD (gastroesophageal reflux disease) Yes Overview Addendum 05/14/2024 2:06 PM by Cydney Luu MD Continue Protonix 40 mg daily 05/07 extubated, no on home PPI dc'd 05/08 pt denies any GERD symptoms 05/09 + PPI for reflux 05/10 docusate, metoclopramide, miralax, senna, simethicone, continue NG to low intermitted, CLD forpt comfort, passing gas 05/11 as above denies reflux today NG clamp trial 05/14 PPI per blue surgery rec for blood tinged NG output Leukocytosis Yes Overview Signed 05/13/2024 12:38 PM by Christi Sherman APRN trending Hyperlipidemia Yes THOM (obstructive sleep apnea) Yes Overview Addendum 05/09/2024 11:15 AM by Miguel Downey MD 05/07 pt declines home CPAP use 05/08 on 2lNC 05/09 96% on 2lNC S/P CABG x 4 Not Applicable Overview Addendum 05/12/2024 12:26 PM by Christi Sherman APRN 05/06 w/Reda 4 chest tubes (mediastinal x2, left pleural, right pleural) A&V wires SBP <140 Aspirin, statin, beta stacey as clinically appropriate 05/07 epi .03 weaning, holding beta block (epi .03) 05/09 off all gtts NSR continue ICU level of care per CT surg Hypertension Yes Overview Addendum 05/21/2024 9:43 AM by Reyna Mcdonald APRN Requiring nitroglycerin gtt upon arrival to ICU 05/07 off gtts, SBP within goal 05/09: increased metop to 50 BID 05/21: restarting metop IV q6hrs Hyperkalemia No Overview Addendum 05/12/2024 12:28 PM by Christi Sherman APRN Intro op max 7.3 Received dextrose, insulin, calcium, lasix intra-op Now resolved, pt with hypokalemia requiring replacement Cardiac volume overload No Overview Addendum 05/18/2024 10:24 AM by Sidney Jackson MD Diuresis as clinically indicated Hypoglycemia No Overview Addendum 05/13/2024 12:40 PM by Christi Sherman APRN - continue to monitor, checking LFTs On d5 LR at 75 Nausea with vomiting No Overview Addendum 05/14/2024 1:59 PM by Cydney Luu MD - post Reglan/ Simethicone for gastric bubble - may need NG placement, continue to monitor 05/10 docusate, metoclopramide, miralax, senna, simethicone, continue NG to low intermitted, CLD forpt comfort, passing gas , + one time dose of compazine 05/11 KUB reviewed dilated seg of small bowel, NG clamp trial, BM 05/10 denies N/V today 05/12 worsening condition with leukocytosis, tachycardia, tachypnea, nausea and abd complaints- sentfor repeat Ct scan and discussed with surgery team 05/13 continued high NG output Acute blood loss anemia (ABLA) No Overview Signed 05/14/2024 2:01 PM by Cydney Luu MD Lab Results Component Value Date HGB 7.2 (L) 05/14/202405/14 iron studies sent, 1u pRBCs Gastric perforation (CMS/HCC) Unknown Overview Addendum 05/22/2024 11:10 AM by Jose Aburto MD Concern for posterior gastric perforation Not seen on UGI but would not be visualized due to posterior position Repeat CTAP 05/20 demonstrating likely posterior perforation IR and SGE state no intervention at this time 05/17: Continue zosyn and micafungin, unclear stop date at this time 05/21: TPN currently; GI PCR negative 05/22: Micafungin discontinued On total parenteral nutrition (TPN) Unknown Overview Signed 05/21/2024 9:26 AM by Reyna Mcdonald APRN Started on 05/20 Jose Aburto MD Cosigned by Edson Lewis MD at 05/22/2024 2:27 PM EDT Associated attestation - Edson Lewis MD - 05/22/2024 2:27 PM EDT I saw and evaluated the patient with the resident/fellow. I discussed the case with the resident/fellow and agree with the findings and plan as documented. * Progress Notes - Sundeep Newsome MD - 05/22/2024 9:08 AM EDT CARDIOTHORACIC SURGERY PROGRESS NOTE SUBJECTIVE Acute Events/Last 24 Hrs: NAEON. HDS on RA. Tmax 38.4 overnight, since defervesced. Sinus 90s. AUOP. Having bowel movements. Ambulatory. OBJECTIVE All laboratory data, images, tracings, and vital sign data for past 24 hours are personally reviewed unless otherwise noted. Physical Exam VITALS (last 24h) 05/22/2024 1:00 AM 05/22/2024 2:00 AM 05/22/2024 3:00 AM 05/22/2024 4:00 AM 05/22/2024 5:00 AM 05/22/2024 6:00 AM 05/22/2024 7:00 AM Vitals Systolic 100 101 116 116 106 122 109 Diastolic 60 66 70 66 72 69 64 Heart Rate 93 97 100 97 98 85 95 Temp 37.2 C 37.3 C 37.3 C 37.3 C 37.5 C 37.5 C 37.3 C Resp 17 19 22 18 24 21 23 Weight (kg) 58.6 kg BMI 24.42 kg/m2 BSA (m2) 1.59 m2 O2 Delivery Method: Nasal cannula General: alert and oriented, no acute distress, resting in bed HEENT: normocephalic, atraumatic, NGT in place Eyes: no scleral icterus, normal conjunctiva Neck: supple, no trachea deviation Lungs: symmetric chest rise, non-labored breathing Heart: fast rate, well perfused Abdomen: soft, nondistended, non tender to palpation Extremities: no peripheral edema Skin: no rash, no cyanosis and warm to touch Psychiatric: oriented to person/place/time and normal mood/affect Intake/Output Intake/Output Summary (Last 24 hours) at 05/22/2024 0908 Last data filed at 05/22/2024 0700 Gross per 24 hour Intake 2750 ml Output 2860 ml Net -110 ml Results Labs in last 18 hours CBC WBC 11.56 (H) Hb 9.2 (L) Plt 523 (H) Hct 29.4 (L) ANC 7.98 (H) INR ??, PTT ??, Anti-Xa ?? BMP Na 139 Cl 107 BUN 12 Glu 115 (H) K 3.6 Co2 24 Cr 0.61 Ca 7.0 (L) iCa 4.0 (L) Mg 1.9, Phos 3.1 Lactate ?? LFT AST 31 AlkPhos 112 (H) T Prot 5.4 (L) ALK 16 Bili 0.7 Alb ?? D.Bili ?? Imaging No echocardiogram results found for the past 14 days No valid procedures specified. ASSESSMENT & PLAN Principal Problem: CAD, multiple vessel Active Problems: Anxiety and depression COPD (chronic obstructive pulmonary disease) (CMS/HCC) NSTEMI (non-ST elevated myocardial infarction) (CMS/HCC) GERD (gastroesophageal reflux disease) Leukocytosis Hyperlipidemia THOM (obstructive sleep apnea) S/P CABG x 4 Hypertension Hyperkalemia Cardiac volume overload Hypoglycemia Nausea with vomiting Acute blood loss anemia (ABLA) Gastric perforation (CMS/HCC) On total parenteral nutrition (TPN) 53 yrs female who underwent 4v CABG on 05/06/[address] Austin. -ASA -NPO -IV metop -NGT LIWS -TPN -Zosyn and Micafungin (can switch to fluc if various teams ok with it) -BID PPI -Appreciate GI, IR, and general surgery recs -Music, narrative, dog, art therapy -pull de los santos -continue ICU care Cardiothoracic Surgery 05/22/24 9:08 AM Cosigned by Maite Austin MD at 05/22/2024 2:30 PM EDT Associated attestation - Maite Austin MD - 05/22/2024 2:30 PM EDT I saw and evaluated the patient with the resident/fellow. I discussed the case with the resident/fellow and agree with the findings and plan as documented. * Pharmacy note - Db Kline - 05/22/2024 7:04 AM EDT Pharmacist TPN Progress Note Patient: Rere Hunter Age: 53 y.o. Admission Date: [id number] Subjective/Objective/Hospital Course: 53 y.o. female with PMHx of CAD, HTN, COPD, GERD, tremor, anxiety, depression, and tobacco use, who is currently hospitalized under the care of the CVT surgery team after having a CABG on 05/06/24. Since surgery she has developed nausea, vomiting, and abdominal pain with imaging findings consistent with ileus. Patient has had inadequate energy intake likely related to ileus and has been NPO x [address] 05/20 showed intraabdominal fluid adjacent to stomach concerning for possible perforation. UGI with no perforartion. TPN consult for ileus + possible leak. 05/17: TPN consult placed 05/19: TPN initiated Problem List[1] Medical History[2] Surgical History[3] Allergies: Latex and Oxycodone LABS: Results from last 7 days Lab Units 05/22/24 0613 05/22/24 0518 05/22/24 0001 05/21/24 1800 05/21/24 1209 05/21/24 0556 05/21/24 0009 05/20/24 2348 05/20/24 1835 05/20/24 0216 05/20/24 0215 GLUCOSE mg/dL 115* -- 114* 121* 139* 139* -- 141* 141* 135* -- 127* BUN mg/dL 12 -- 11 11 13 13 -- 12 12 12 -- 11 CREATININE mg/dL 0.61 -- 0.62 0.58* 0.62 0.68 -- 0.76 0.76 0.78 -- 0.78 SODIUM mmol/L 139 -- 139 139 139 140 -- 141 141 139 -- 141 POTASSIUM mmol/L 3.6 -- 4.2 4.7 4.3 3.7 -- 3.5* 3.5* 3.3* -- 3.9 CHLORIDE mmol/L 107 -- 110* 109* 111* 108* -- 110* 110* 107 -- 112* CO2 mmol/L 24 -- 22 23 21* 22 -- 23 23 21* -- 21* CALCIUM mg/dL 7.0* -- 7.5* 7.7* 7.5* 7.3* -- 7.4* 7.4* 7.5* -- 7.0* CALCIUM IONIZED WB mg/dL 4.0* 3.4* 4.3* 4.5* 4.2* 4.2* 4.3* -- -- < > -- PHOSPHORUS mg/dL -- -- 3.1 4.1 2.9 3.9 -- 3.1 2.1* -- 3.2 MAGNESIUM mg/dL -- -- 1.9 2.1 2.2 2.2 -- 2.3 2.2 -- 2.7* < > = values in this interval not displayed. Results from last 7 days Lab Units 05/22/24 0613 05/22/24 0518 05/20/24 2348 05/20/24 0215 05/19/24 0202 05/18/24 0020 05/17/24 1813 WBC 10*3/uL 11.56* 9.98 12.88* 12.37* 14.70* 14.70* 13.62* HEMOGLOBIN g/dL 9.2* 7.6* 9.6* 9.1* 9.2* 9.6* 9.7* HEMATOCRIT % 29.4* 23.8* 29.5* 28.3* 27.7* 29.0* 29.7* PLATELETS 10*3/uL 523* 431* 605* 632* 629* 590* 607* Results from last 7 days Lab Units 05/22/24 0613 05/22/24 0001 05/21/24 1800 05/21/24 1209 05/21/24 0556 05/20/24 2348 05/20/24 1835 05/20/24 0215 05/19/24 1142 05/19/24 0202 05/18/24 0400 05/18/24 0020 05/17/24 1023 ALT U/L 16 -- -- -- -- 22 -- 20 -- 23 24 27 37* AST U/L 31 -- -- -- -- 39* -- 53* -- 53* 53* 61* 83* ALKALINE PHOSPHATASE U/L 112* -- -- -- -- 120* -- 117* -- 111* 113* 115* 127* BILIRUBIN TOTAL mg/dL 0.7 -- -- -- -- 0.7 -- 0.7 -- 1.1 1.1 1.1 0.7 ALBUMIN g/dL 1.8* 1.8* 1.9* 1.9* 2.0* 2.0* 2.0* 2.2* 2.0* < > 2.1* 2.1* 2.1* 2.4* < > = values in this interval not displayed. Nutrition Labs: Lab Results Component Value Date TRIG 76 05/19/2024 BILITOT 0.7 05/22/2024 ALBUMIN 1.8 (L) 05/22/2024 PREALBUMIN 6.5 (L) 05/09/2024 HGBA1C 5.3 05/01/2024 CRP 225.3 (H) 05/17/2024 IRON 25 (L) 05/14/2024 TIBC 156 (L) 05/14/2024 Microbiology Results Procedure Component Value Units Date/Time Blood Culture (Aerobic/Anaerobet Set) [[id number]] Collected: 05/17/24 1116 Order Status: Completed Specimen: Blood from Wrist, Right Updated: 05/21/24 1201 Culture No growth at day 4 Vitals: Visit Vitals BP 122/69 Pulse 85 Temp 37.5 ??C (99.5 ??F) (Bladder) Resp 21 [place] Coma Scale Score: 15 [place] Scale Score: 16 Oxygen Therapy: None (Room air) Skin Integrity: Bruising Edema: Generalized Wt Readings from Last 3 Encounters: 05/22/24 58.6 kg (129 lb 3 oz) 06/28/23 59 kg (130 lb) 04/26/23 62.6 kg (138 lb) Current Diet Order: Dietary Orders (From admission, onward) Start Ordered 05/18/24 1718 NPO diet Diet effective now 05/18/24 1717 Current Medications acetaminophen, 650 mg, Intravenous, q6h aspirin, 150 mg, Rectal, Daily fat emulsion fish/plant based, 250 mL, Intravenous, Every other day heparin (porcine), 5,000 Units, Subcutaneous, q8h metoprolol tartrate, 5 mg, Intravenous, q6h micafungin, 100 mg, Intravenous, q24h pantoprazole, 40 mg, Intravenous, BID piperacillin-tazobactam, 4.5 g, Intravenous, q6h sodium chloride, 10 mL, Intravenous, q12h Adult 2-in-1 TPN, 65 mL/hr, Last Rate: 65 mL/hr (05/22/24 0600) Current Anthropometrics: Height: 154.9 cm (5' 0.98 ) Weight: 61.1 kg (134 lb 12.8 oz) [place] body weight: 47.8 kg (105 lb 4.8 oz) Adjusted ideal body weight: 52.8 kg (116 lb 5.7 oz) (126.25%) of IBW Body mass index is 25.13 kg/m??. Adjusted wt: 50.9 kg (if over 125% of IBW) CENTRAL IV Access: PICC (05/18/24) Estimated Nutritional Needs: HBE: 1153 Stress Factor: 1.2-1.4 Total Calories/day: 1374-7354 Protein (amino acids): 1.3-1.6 grams/kg Protein (Amino acids): 66-81 grams/day Measured Energy Needs: Respiratory Quotient: 05/22/2024 Plan/Recommendation: Labs reviewed. Continue goal TPN as below. Will continue to monitor. GOAL TPN: DEXTROSE: 18% (281 g/day CHO) AMINO ACIDS: 5% (78 g/day - 1.51 g/kg/day Amino acids) C:A 1:3 @ 65 ml/hr, with 30mg/day thiamine, MVI, and Trace elements Every other day 250ml 20% SMOF lipids 1517 Total kcal/day - 29.8 kcal/kg/day GUR: 3.83 Replace electrolytes outside of TPN Calcium and/or Phosphorus supplements MUST be in a separate line from the TPN to avoid precipitation Obtain BMP, magnesium, and Phos daily x 3days and then at least twice weekly Obtain LFT and TGLY weekly I have monitored the TPN therapy, including the labs, and have communicated any modifications with the primary medical/surgical team. Continue current TPN formula and lipid regimen as above. I have communicated the TPN plan with the IV room. Thank you, Db Kline, PharmD Candidate 2024 Preceptor - Moni Méndez, MagalieD [1] Patient Active Problem List Diagnosis Anxiety and depression COPD (chronic obstructive pulmonary disease) ([facility] [place]) CAD, multiple vessel NSTEMI (non-ST elevated myocardial infarction) ([facility] [place]) GERD (gastroesophageal reflux disease) Leukocytosis Hyperlipidemia THOM (obstructive sleep apnea) S/P CABG x 4 Hypertension Hyperkalemia Cardiac volume overload Hypoglycemia Nausea with vomiting Acute blood loss anemia (ABLA) Gastric perforation ([facility] [place]) On total parenteral nutrition (TPN) [2] Past Medical History: Diagnosis Date Anxiety COPD (chronic obstructive pulmonary disease) (CMS/HCC) 05/01/2024 Continue Duo nebs q6 SPO2 goal >88% Depression GERD (gastroesophageal reflux disease) 05/01/2024 Continue Protonix 40 mg daily On mechanically assisted ventilation (CMS/HCC) 05/06/2024 Arrived to ICU intubated 05/07 extubated to [facility] 05/08 resolved Tobacco use 05/01/2024 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 Complicates all aspects of care and recovery Tremor 05/01/2024 Continue home primidone 50 mg BID [3] Past Surgical History: Procedure Laterality Date ABDOMINAL ADHESION SURGERY SECTION, CLASSIC CHOLECYSTECTOMY CORONARY ARTERY BYPASS GRAFT 05/06/2024 Coronary artery bypass grafting x4 with CHOWDARY to LAD as a free graft, reverse saphenous vein graft sequential to ramus intermedius artery then to obtuse marginal artery 1, reverse saphenous vein graftto PDA.(Reda) HAND SURGERY Right Tendon repair SHOULDER SURGERY Cosigned by Moni Méndez, PharmD at 05/22/2024 3:27 PM EDT Associated attestation - Moni Méndez PharmD - 05/22/2024 3:27 PM EDT I have reviewed the students assessment and plan and agree with the below statements * Consults - Cheri Mckay RD - 05/21/2024 5:57 PM EDT Adult Nutrition Evaluation Note Rere Hunter 53 y.o. female CSN: [id number] Room/Bed 216/216A Nutrition evaluation type: follow-up Reason for evaluation: Hospital course: 53 y.o. female presents for CABG evaluation. OR on 05/06. 05/16: NPO x 5 days d/t ileus. Trial of clamping NGT. SGE is following. Pt has been intermittently confused. 05/18: Patient transferred back to ICU yesterday given worsening abdominal exam, electrolyte abnormalities, and overall care requirements. Having fevers, tachycardia. General surgery and GI acutely involved for worsening bowel exam with CT findings concerning for possible gastric perforation. 05/21: Currently receiving TPN. NGT to suction. Past medical/ surgical history: Medical History[1] Surgical History[2] Social history: Additional comments: Minimal PO intake recently, diet advancing per protocol. 05/11: Pt reports appetite improving, trying to eat. Pt denied n/v/d/c, denied chewing/swallowing difficulty. Pt denied involuntary wt changes. No feeding tube present. Vitals and Basic Assessment: BP: 106/54 Temp: 37.5 ??C (99.5 ??F) Invasive Ventilator Initiated (ETT/Trach Only): Yes Oxygen Therapy: Supplemental oxygen O2 Delivery Method: Nasal cannula Jaida Coma Scale Score: 15 [place]aan Scale Score: 16 Joshua/Cubbin Pressure Risk Score: 41 Most Recent BM Date: 05/20/24 GI Symptoms: Nausea Edema: Generalized NGT output: 350 mL Allergies: NKFA Medications: aspirin, 150 mg, Rectal, Daily fat emulsion fish/plant based, 250 mL, Intravenous, Every other day heparin (porcine), 5,000 Units, Subcutaneous, q8h metoprolol tartrate, 5 mg, Intravenous, q6h micafungin, 100 mg, Intravenous, q24h pantoprazole, 40 mg, Intravenous, BID piperacillin-tazobactam, 4.5 g, Intravenous, q6h sodium chloride, 10 mL, Intravenous, q12h Meds were reviewed: Yes Labs: Lab Results Component Value Date GLUCOSE 139 (H) 05/21/2024 CALCIUM 7.5 (L) 05/21/2024 NA 139 05/21/2024 K 4.3 05/21/2024 CO2 21 (L) 05/21/2024 CL 111 (H) 05/21/2024 BUN 13 05/21/2024 CREATININE 0.62 05/21/2024 PHOS 2.9 05/21/2024 MG 2.2 05/21/2024 HGBA1C 5.3 05/01/2024 Anthropometrics: Height: 154.9 cm (5' 0.98 ) Weight: 61.1 kg (134 lb 11.2 oz) BMI (Calculated): 25.46 Weight Evaluation: Overweight (BMI 25-29.9) [place] Body Weight (kg): 47.7 Percent [place] Body Weight: 126 Adjusted Body Weight (kg): 50.9 Estimated Needs: Kcal/ K-30 Kcal Provided: 3656-9465 Kcal Needs Based On: Adjusted weight Gm Protein/ Kg : 1.5 Protein Provided: 76 Protein Needs Based On: Adjusted weight Metabolic Cart Study Results: Current Nutrition Intake: Diet Order: NPO Diet Texture: (-) Adult Carbohydrate Restriction: (-) Fat Restriction: (-) Percent Meals Eaten (%): (-) GOAL TPN: DEXTROSE: 18% (281 g/day CHO) AMINO ACIDS: 5% (78 g/day - 1.51 g/kg/day Amino acids) C:A 1:3 @ 65 ml/hr, with 30mg/day thiamine, MVI, and Trace elements Every other day 250ml 20% SMOF lipids 1517 Total kcal/day - 29.8 kcal/kg/day GUR: 3.83 Diet Experience and Nutrition History: Diet Education Provided: Will monitor Pertinent home medications: reviewed Gnosticist needs: Nutrition Focused Physical Exam: Physical exam performed on (date): 05/11 Temples (muscles): None Clavicle (muscle): None Shoulder (muscle): None Interosseous (muscle): None Thigh (muscle): None Calf (muscle): Mild Orbital (fat): None Triceps (fat): None Assessment of Malnutrition: Malnutrition Identified: No Nutrition Problem: Increased nutrient needs protein, calories related to s/p CABG as evidenced by increased metabolic demands of surgical wound healing. Status of Nutrition Diagnosis: Ongoing Inadequate energy intake related to ileus/possible gastric perforation as evidenced by NPO x 7 days-> TPN initiated Status of Nutrition Diagnosis: Improvement Nutrition Interventions and Recommendations: - TPN per pharmacy. Nutrition Monitoring and Goals: - Will monitor PO intake/EN infusion, weight, skin, labs, nutrition status - re-establish source of nutrition (met) - monitor elytes (ongoing) - Pt will maintain body weight throughout hospital admission (ongoing) Acuity Level: 1 Cheri Mckay, RD, LD [1] Past Medical History: Diagnosis Date Anxiety COPD (chronic obstructive pulmonary disease) ([facility] [place]) 05/01/2024 Continue Duo nebs q6 SPO2 goal >88% Depression GERD (gastroesophageal reflux disease) 05/01/2024 Continue Protonix 40 mg daily On mechanically assisted ventilation ([facility] [place]) 05/06/2024 Arrived to ICU intubated 05/07 extubated to 4LNC 05/08 resolved Tobacco use 05/01/2024 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 Complicates all aspects of care and recovery Tremor 05/01/2024 Continue home primidone 50 mg BID [2] Past Surgical History: Procedure Laterality Date ABDOMINAL ADHESION SURGERY SECTION, CLASSIC CHOLECYSTECTOMY CORONARY ARTERY BYPASS GRAFT 05/06/2024 Coronary artery bypass grafting x4 with CHOWDARY to LAD as a free graft, reverse saphenous vein graft sequential to ramus intermedius artery then to obtuse marginal artery 1, reverse saphenous vein graftto PDA.(Reda) HAND SURGERY Right Tendon repair SHOULDER SURGERY * Progress Notes - Iman Massey MD - 05/21/2024 4:51 PM EDT Surgical ICU Daily Progress Note 05/21/24 Rere Hunter HPI 53F with history of HTN, HLD, COPD, GERD, tobacco use, and CAD s/p 4v CABG on 05/06. SGE consulted for post-operative ileus. Interval: febrile and tachycardic. BP stable and labs unremarkable. Recommend NG to suction and TPNwith watchful waiting. Edited by: Iman Massey MD at 05/21/2024 8375 Relevant review of systems was obtained as able and is negative unless stated above in HPI. Vital signs: Visit Vitals BP 128/73 (BP Location: Right arm, Patient Position: Lying) Pulse 82 Temp 37.3 ??C (99.1 ??F) (Bladder) Resp 18 Ht 1.549 m (5' 0.98 ) Wt 61.1 kg (134 lb 11.2 oz) SpO2 96% BMI 25.46 kg/m?? Smoking Status Every Day BSA 1.62 m?? Intake/Output Summary (Last 24 hours) at 05/21/2024 1651 Last data filed at 05/21/2024 1600 Gross per 24 hour Intake 3169.47 ml Output 1820 ml Net 1349.47 ml Physical Exam: Physical Exam Constitutional: Appearance: She is ill-appearing. HENT: Head: Normocephalic. Nose: Nose normal. Comments: NG Mouth/Throat: Pharynx: Oropharynx is clear. Cardiovascular: Rate and Rhythm: Tachycardia present. Pulmonary: Effort: Pulmonary effort is normal. No respiratory distress. Abdominal: General: There is no distension. Palpations: Abdomen is soft. Tenderness: There is abdominal tenderness (More focal in LLQ today). Skin: General: Skin is warm and dry. Neurological: Mental Status: She is alert and oriented to person, place, and time. Psychiatric: Comments: anxious Lines/Drains/Tubes: Patient Lines/Drains/Airways Status Active Airway None O2 Delivery Method: Nasal cannula Output by Drain (mL) 05/19/24699 - 05/19/24 18505/19/24 190 - 05/20/24 0659 05/20/24 07 - 05/20/24 18505/20/24 190 - 05/21/24 0659 05/21/24699 - 05/21/24 1651 Requested LDAs do not have output data documented. Labs in last 18 hours: CBC WBC 12.88 (H) Hb 9.6 (L) Plt 605 (H) Hct 29.5 (L) ANC 7.60 (H) INR ??, PTT ??, Anti-Xa ?? BMP Na 139 Cl 111 (H) BUN 13 Glu 139 (H) K 4.3 Co2 21 (L) Cr 0.62 Ca 7.5 (L) iCa 4.2 (L) Mg 2.2, Phos 2.9 Lactate ?? LFT AST 39 (H) AlkPhos 120 (H) T Prot 5.7 (L) ALK 22 Bili 0.7 Alb ?? D.Bili ?? Lab Trends: H/H Results from last 7 days Lab Units 05/20/24 2348 05/20/24 0215 05/19/24 0202 HEMOGLOBIN g/dL 9.6* 9.1* 9.2* HEMATOCRIT % 29.5* 28.3* 27.7* INR Results from last 7 days Lab Units 05/17/24 1508 INR 1.7* Cr Results from last 7 days Lab Units 05/21/24 1209 05/21/24 0556 05/20/24 2348 CREATININE mg/dL 0.62 0.68 0.76 0.76 Medications reviewed. Vital signs reviewed. Labs reviewed. Radiography reviewed. 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 DVT pro, remove CT 05/11 ASA/statin/BB Anxiety and depression Yes Overview Addendum 05/13/2024 12:37 PM by Christi Sherman APRN 05/07 Continue home bupropion XL 300 mg daily Continue home citalopram 40 mg daily Continue PRN hydroxyzine 25 mg q6 COPD (chronic obstructive pulmonary disease) ([facility] [place]) Yes Overview Addendum 05/12/2024 12:27 PM by Christi Sherman APRN 05/07 Duo nebs q6 SPO2 goal >88% On 4LNC 05/08 on 2LNC 05/09 on 2LNC +40 lasix 05/12 ongoing 3L NSTEMI (non-ST elevated myocardial infarction) ([facility] [place]) Yes Overview Addendum 05/11/2024 10:54 AM by Miguel Downey MD Diagnosed at OSH with elevated troponins of 0.05 to 0.23 to 0.16 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, 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 Repeat troponins pending 05/07 POD 1 4V CABG 05/09 EKG ordered and reviewed no signs of ST changes 05/10 ST 105 05/11 ST 100-105 GERD (gastroesophageal reflux disease) Yes Overview Addendum 05/14/2024 2:06 PM by Cydney Luu MD Continue Protonix 40 mg daily 05/07 extubated, no on home PPI dc'd 05/08 pt denies any GERD symptoms 05/09 + PPI for reflux 05/10 docusate, metoclopramide, miralax, senna, simethicone, continue NG to low intermitted, CLD forpt comfort, passing gas 05/11 as above denies reflux today NG clamp trial 05/14 PPI per blue surgery rec for blood tinged NG output Leukocytosis Yes Overview Signed 05/13/2024 12:38 PM by Christi Sherman APRN trending Hyperlipidemia Yes THOM (obstructive sleep apnea) Yes Overview Addendum 05/09/2024 11:15 AM by Miguel Downey MD 05/07 pt declines home CPAP use 05/08 on 2lNC 05/09 96% on 2lNC S/P CABG x 4 Not Applicable Overview Addendum 05/12/2024 12:26 PM by Christi Sherman APRN 05/06 w/Reda 4 chest tubes (mediastinal x2, left pleural, right pleural) A&V wires SBP <140 Aspirin, statin, beta stacey as clinically appropriate 05/07 epi .03 weaning, holding beta block (epi .03) 05/09 off all gtts NSR continue ICU level of care per CT surg Hypertension Yes Overview Addendum 05/21/2024 9:43 AM by Reyna Mcdonald APRN Requiring nitroglycerin gtt upon arrival to ICU 05/07 off gtts, SBP within goal 05/09: increased metop to 50 BID 05/21: restarting metop IV q6hrs Hyperkalemia No Overview Addendum 05/12/2024 12:28 PM by Christi Sherman APRN Intro op max 7.3 Received dextrose, insulin, calcium, lasix intra-op Now resolved, pt with hypokalemia requiring replacement Cardiac volume overload No Overview Addendum 05/18/2024 10:24 AM by Sidney Jackson MD Diuresis as clinically indicated Hypoglycemia No Overview Addendum 05/13/2024 12:40 PM by Christi Sherman APRN - continue to monitor, checking LFTs On d5 LR at 75 Nausea with vomiting No Overview Addendum 05/14/2024 1:59 PM by Cydney Luu MD - post Reglan/ Simethicone for gastric bubble - may need NG placement, continue to monitor 05/10 docusate, metoclopramide, miralax, senna, simethicone, continue NG to low intermitted, CLD forpt comfort, passing gas , + one time dose of compazine 05/11 KUB reviewed dilated seg of small bowel, NG clamp trial, BM 05/10 denies N/V today 05/12 worsening condition with leukocytosis, tachycardia, tachypnea, nausea and abd complaints- sentfor repeat Ct scan and discussed with surgery team 05/13 continued high NG output Acute blood loss anemia (ABLA) No Overview Signed 05/14/2024 2:01 PM by Cydney Luu MD Lab Results Component Value Date HGB 7.2 (L) 05/14/202405/14 iron studies sent, 1u pRBCs Gastric perforation (CMS/HCC) Unknown Overview Addendum 05/21/2024 9:27 AM by Reyna Mcdonald APRN Concern for posterior gastric perforation Not seen on UGI but would not be visualized due to posterior position Repeat CTAP 05/20 demonstrating likely posterior perforation IR and SGE state no intervention at this time 05/17: Continue zosyn and micafungin, unclear stop date at this time 05/21: TPN currently; GI PCR negative On total parenteral nutrition (TPN) Unknown Overview Signed 05/21/2024 9:26 AM by Reyna Mcdonald APRN Started on 05/20 To Do: - UGI completed with delayed leak from GI, contained - No acute surgical intervention due to location of possible perf and contained nature - continue antibiotics, NGT drainage - flush NGT q4 hours to ensure patency and adequate drainage -TPN for parenteral nutrition, NPO - PPI - If exam changes or signs consistent with worsening infection, can consider surgical intervention - SGE will continue to follow Edited by: Iman Massey MD at 05/21/2024 0749 Iman Massey MD Procedures Cosigned by Judy Mancuso MD at 05/27/2024 8:05 PM EDT Associated attestation - Judy Mancuso MD - 05/27/2024 8:05 PM EDT Abdominal exam improving, leukocytosis improving. Likely re-image tomorrow. Judy Mancuso MD, PhD Acute Care Surgery, Trauma and Surgical Critical Care I saw and evaluated the patient with the resident/fellow. I discussed the case with the resident/fellow and agree with the findings and plan as documented. * Progress Notes - Heather Ram - 05/21/2024 11:42 AM EDT Case Management Adult Progress Note Rere Hunter 53 y.o. female CSN: [id number] Admission: 05/01/2024 11:01 PM Primary Problem: CAD, multiple vessel Anticipated Discharge Date: TBD Has Discharge Plans Changed? No Housing Circumstances: Not Applicable Housing Circumstances Action Taken: Other N/A Additional Comments SW reviewed chart for case updates. Pt is s/p 4vCABG on 05/06/24 and remains in an ICU-level of care. Pt currently on TPN and IV Zosyn and Micafungin. Awaiting IR and general surgery final recs re: perforation of posterior stomach. Per MD, pt is not medically ready for DC this date. See medical notes for more detail. No further SW concerns identified at this time. SW will monitor pt's progress andwill follow up with DC planning and needs as appropriate. Addendum: SHERIE received securechat request from bedside RN asking for assistance with SSDI. SW referred pt to financial counseling for assistance with applying for disability. NAYA Albarran * Progress Notes - Edson Lewis MD - 05/21/2024 11:41 AM EDTAssociated Order(s): Critical Care Post-Procedure Diagnose(s): S/P CABG x 4 Critical Care Performed by: Edson Lewis MD Authorized by: Edson Lewis MD Critical care provider statement: Critical care time (minutes): 38 Critical care time was exclusive of: Separately billable procedures and treating other patients and teaching time Critical care was time spent personally by me on the following activities: Development of treatmentplan with patient or surrogate, ordering and performing treatments and interventions, discussions with consultants, ordering and review of laboratory studies, discussions with primary provider, ordering and review of radiographic studies, evaluation of patient's response to treatment and examination of patient Critical care statement: I saw and evaluated the patient with the resident/ fellow. I discussed thecase with the resident/ fellow and agree with the findings and plan as documented. Comments: Gastric perf. NPO. TPN Antibiotics for now. 05/21/24 Rere Hunter HPI Rere Hunter is a 53 y.o. female who presents with CAD, multiple vessel. If applicable, patient is s/p Procedure(s) and Anesthesia Type: * CABG, 2 OR MORE VESSELS - General. Patient is 15 Days Post-Op with Cardiothoracic Surgery. Past 24 hours: PM: NAEON. Febrile and tachycardic this afternoon. BP stable. Add Q6 RFP, Mg, ical for 24 hours.Bowel movement after suppository. AM: NPO until further notice. Follow up IR and surgery final recs. On TPN, continue TPN. IV metoprolol 5mg q6. Encourage ambulation with PT. Michael grayson Edited by: Jose Aburto MD at 05/21/2024 1139 Lines/Drains/Tubes: Patient Lines/Drains/Airways Status Active Active LDAs Name Placement date Placement time Site Days PICC Double Lumen 05/19/24 Left Basilic vein 05/19/24 0050 Basilic vein 2 Peripheral IV 05/12/24 Anterior;Left Forearm 05/12/24 0030 Forearm 9 Peripheral IV 05/18/24 Anterior;Right;Upper Arm 05/18/24 0400 Arm 3 NG/OG [place] Sump 14 Fr Right nostril 05/11/24 2300 Right nostril 9 Urethral Catheter Temperature probe 05/17/24 1430 -- 3 Arterial Line 05/17/24 Right Radial 05/17/24 1400 Radial 3 GCS: [place] Coma Scale Score: 15 Review of Systems 14 point ROS reviewed and otherwise negative or unobtainable except as noted above or in HPI. Vital signs: Vitals: 05/21/24 0900 BP: Pulse: (!) 117 Resp: (!) 30 Temp: 37.4 ??C (99.3 ??F) SpO2: 95% Intake/Output Summary (Last 24 hours) at 05/21/2024 1141 Last data filed at 05/21/2024 0900 Gross per 24 hour Intake 2553.47 ml Output 3230 ml Net -676.53 ml Physical Exam: Sedation was held for the purposes of examination. Physical Exam Vitals reviewed. Constitutional: General: She is not in acute distress. HENT: Head: Normocephalic and atraumatic. Mouth/Throat: Mouth: Mucous membranes are dry. Pharynx: Oropharynx is clear. Eyes: General: Vision grossly intact. Extraocular Movements: Extraocular movements intact. Pupils: Pupils are equal, round, and reactive to light. Cardiovascular: Pulses: Normal pulses. Heart sounds: Normal heart sounds. Comments: No unanticipated findings. Pulmonary: Effort: Pulmonary effort is normal. Breath sounds: Normal breath sounds and air entry. Comments: No unanticipated findings. Abdominal: Palpations: Abdomen is soft. There is no mass. Tenderness: There is abdominal tenderness. Musculoskeletal: General: No deformity. Normal range of motion. Cervical back: Normal range of motion. No rigidity. Skin: General: Skin is warm and dry. Neurological: General: No focal deficit present. Mental Status: She is alert, oriented to person, place, and time and easily aroused. Mental status is at baseline. Psychiatric: Behavior: Behavior is cooperative. Labs in last 18 hours: CBC WBC 12.88 (H) Hb 9.6 (L) Plt 605 (H) Hct 29.5 (L) ANC 7.60 (H) INR ??, PTT ??, Anti-Xa ?? BMP Na 140 Cl 108 (H) BUN 13 Glu 139 (H) K 3.7 Co2 22 Cr 0.68 Ca 7.3 (L) iCa 4.2 (L) Mg 2.2, Phos 3.9 Lactate ?? LFT AST 39 (H) AlkPhos 120 (H) T Prot 5.7 (L) ALK 22 Bili 0.7 Alb ?? D.Bili ?? Imaging as available: === 05/01/24 === XR CHEST 1 VIEW - Narrative - CLINICAL INDICATION: post op cardiac surgery monitoring TECHNIQUE: XR CHEST 1 VIEW COMPARISON: May 20, 2024 FINDINGS: Stable support hardware. Stable cardiomediastinal silhouette. No new consolidation. No pneumothoraxor pleural effusion. - Impression - No significant interval changes. CRITICAL RESULT: No. COMMUNICATION: Per this written report. By electronically signing this report, I, the attending physician, attest that I have personally reviewed the images/data for the above examination(s) and agree with the final edited report. Drafted by Mino Hobbs MD on 05/21/2024 8:07 AM Final report signed by Champ Oden MD on 05/21/2024 8:42 AM Reviewed and agree with above. Assessment and Plan: This patient is critically ill. 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 DVT pro, remove CT 05/11 ASA/statin/BB Anxiety and depression Yes Overview Addendum 05/13/2024 12:37 PM by Christi Sherman APRN 05/07 Continue home bupropion XL 300 mg daily Continue home citalopram 40 mg daily Continue PRN hydroxyzine 25 mg q6 COPD (chronic obstructive pulmonary disease) ([facility] [place]) Yes Overview Addendum 05/12/2024 12:27 PM by Christi Sherman APRN 05/07 Duo nebs q6 SPO2 goal >88% On 4LNC 05/08 on 2LNC 05/09 on 2LNC +40 lasix 05/12 ongoing 3L NSTEMI (non-ST elevated myocardial infarction) ([facility]) Yes Overview Addendum 05/11/2024 10:54 AM by Miguel Downey MD Diagnosed at OSH with elevated troponins of 0.05 to 0.23 to 0.16 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, 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 Repeat troponins pending 05/07 POD 1 4V CABG 05/09 EKG ordered and reviewed no signs of ST changes 05/10 ST 105 05/11 ST 100-105 GERD (gastroesophageal reflux disease) Yes Overview Addendum 05/14/2024 2:06 PM by Cydney Luu MD Continue Protonix 40 mg daily 05/07 extubated, no on home PPI dc'd 05/08 pt denies any GERD symptoms 05/09 + PPI for reflux 05/10 docusate, metoclopramide, miralax, senna, simethicone, continue NG to low intermitted, CLD forpt comfort, passing gas 05/11 as above denies reflux today NG clamp trial 05/14 PPI per blue surgery rec for blood tinged NG output Leukocytosis Yes Overview Signed 05/13/2024 12:38 PM by Christi Sherman APRN trending Hyperlipidemia Yes THOM (obstructive sleep apnea) Yes Overview Addendum 05/09/2024 11:15 AM by Miguel Downey MD 05/07 pt declines home CPAP use 05/08 on 2lNC 05/09 96% on 2lNC S/P CABG x 4 Not Applicable Overview Addendum 05/12/2024 12:26 PM by Christi Sherman APRN 05/06 w/Reda 4 chest tubes (mediastinal x2, left pleural, right pleural) A&V wires SBP <140 Aspirin, statin, beta stacey as clinically appropriate 05/07 epi .03 weaning, holding beta block (epi .03) 05/09 off all gtts NSR continue ICU level of care per CT surg Hypertension Yes Overview Addendum 05/21/2024 9:43 AM by Reyna Mcdonald APRN Requiring nitroglycerin gtt upon arrival to ICU 05/07 off gtts, SBP within goal 05/09: increased metop to 50 BID 05/21: restarting metop IV q6hrs Hyperkalemia No Overview Addendum 05/12/2024 12:28 PM by Christi Sherman APRN Intro op max 7.3 Received dextrose, insulin, calcium, lasix intra-op Now resolved, pt with hypokalemia requiring replacement Cardiac volume overload No Overview Addendum 05/18/2024 10:24 AM by Sidney Jackson MD Diuresis as clinically indicated Hypoglycemia No Overview Addendum 05/13/2024 12:40 PM by Christi Sherman APRN - continue to monitor, checking LFTs On d5 LR at 75 Nausea with vomiting No Overview Addendum 05/14/2024 1:59 PM by Cydney Luu MD - post Reglan/ Simethicone for gastric bubble - may need NG placement, continue to monitor 05/10 docusate, metoclopramide, miralax, senna, simethicone, continue NG to low intermitted, CLD forpt comfort, passing gas , + one time dose of compazine 05/11 KUB reviewed dilated seg of small bowel, NG clamp trial, BM 05/10 denies N/V today 05/12 worsening condition with leukocytosis, tachycardia, tachypnea, nausea and abd complaints- sentfor repeat Ct scan and discussed with surgery team 05/13 continued high NG output Acute blood loss anemia (ABLA) No Overview Signed 05/14/2024 2:01 PM by Cydney Luu MD Lab Results Component Value Date HGB 7.2 (L) 05/14/202405/14 iron studies sent, 1u pRBCs Gastric perforation (CMS/HCC) Unknown Overview Addendum 05/21/2024 9:27 AM by Reyna Mcdonald APRN Concern for posterior gastric perforation Not seen on UGI but would not be visualized due to posterior position Repeat CTAP 05/20 demonstrating likely posterior perforation IR and SGE state no intervention at this time 05/17: Continue zosyn and micafungin, unclear stop date at this time 05/21: TPN currently; GI PCR negative On total parenteral nutrition (TPN) Unknown Overview Signed 05/21/2024 9:26 AM by Reyna Mcdonald APRN Started on 05/20 Jose Aburto MD * Progress Notes - Fariha Sands - 05/21/2024 9:01 AM EDT Physical Therapy Re-Assessment Patient Name: Rere Hunter Today's Date: 05/21/2024 PT Discharge Recommendations: Acute rehab Equipment Recommended: Defer to facility History Rere Hunter is 53 y.o. female admitted 05/01/2024 for work-up of CAD, multiple vessel. Hospital Course 1. S/P CABG x 4 2. CAD, multiple vessel 3. Cardiac volume overload Procedures 05/06/2024 Procedure(s): CABG, 2 OR MORE VESSELS Past Medical History Patient has a past medical history of Anxiety, COPD (chronic obstructive pulmonary disease) ([facility] [place]) (05/01/2024), Depression, GERD (gastroesophageal reflux disease) (05/01/2024), On mechanically assisted ventilation ([facility] [place]) (05/06/2024), Tobacco use (05/01/2024), and Tremor (05/01/2024). Past Surgical History Patient has a past surgical history that includes section, classic; Cholecystectomy; Shoulder surgery; Abdominal adhesion surgery; Hand surgery (Right); and Coronary artery bypass graft (05/06/2024). Precautions Medical Precautions: Fall precautions, Sternal Subjective I'm not feeling great. Pt and RN agreeable to PT treatment session this date. Participants in Care Family/Caregiver Present: No Family/Caregiver: Adult Son Tester Equipment: Not Applicable Presentation Oxygen Therapy: Supplemental oxygen O2 Delivery Method: Nasal cannula O2 Flow Rate (L/min): 1 L/min Lines and Tubes: Telemetry Pre-Session: Lines intact, Supine, Head of bed elevated, Bed alarm Pre-Session Comments: RN agreeable to session. Post-Session: Sitting in chair, Call light in reach, Lines intact, Chair alarm, RN notified Post-Session Comments: Pt positioned for comfort. All needs met/within reach. Lights on, music, andblinds open. 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 Pt positioned for comfort following session with pillows for UE support. RN notified. Delirium Screening Urban Agitation Sedation Scale (RASS): Alert and calm Confusion Assessment Method-ICU (CAM-ICU/PCAM-ICU) Feature 3: Altered Level of Consciousness: Negative Cognition Overall Cognitive Status: Within Functional Limits Arousal/Alertness: Appropriate responses to stimuli Mood/Behavior: Alert, Anxious Orientation Level: Oriented X4 Orientation Level Comments: Poor historian this date 2/2 pain meds Single Step Commands: With increased time, With repetition Multi-Step Commands: With increased time, With repetition Method of Communication: Verbal Vision - Basic Assessment Patient Visual Report: Pt reporting mildly blurry vision upon sitting edge of bed, quickly resolved. Right Upper Extremity Examination RUE ROM Assessment RUE Assessment: Within Functional Limits Manual Muscle Testing - RUE: (NT 2/2 sternal precautions) Sensation Light Touch: Right Upper Extremity: Intact Left Upper Extremity Examination LUE ROM Assessment LUE Assessment: Within Functional Limits Manual Muscle Testing - LUE: (NT 2/2 sternal precautions) Sensation Light Touch: Left Upper Extremity: Intact Right Lower Extremity Examination RLE ROM Assessment RLE Assessment: Within Functional Limits Manual Muscle Testing - RLE: Within functional limits Sensation Light Touch: Right Lower Extremity: Intact Left Lower Extremity Examination LLE Assessment: Within Functional Limits Manual Muscle Testing: Within functional limits Sensation Light Touch: Left Lower Extremity: Intact Bed Mobility Bed Mobility Exam: Rolling/Turning Level of Harmon: Moderate assist (50% patient effort) Physical/Nonphysical Assist: Verbal Cues, Nonverbal cues (demo/gestures), Additional assist utilized for safety, Moderate cues Bed Mobility Exam: Scooting/Bridging Level of Harmon: Contact guard (Scoot to edge of bed) Physical/Nonphysical Assist: Additional assist utilized for safety, Verbal Cues, Set-up required Bed Mobility Exam: Supine to Sit Level of Harmon: Moderate assist (50% patient's effort) Physical/Nonphysical Assist: Verbal Cues, Nonverbal cues (demo/gestures), Moderate cues, HOB elevated Transfers Transfer Exam: Sit to stand Level of Harmon: Contact guard Physical/Nonphysical Assist: Verbal Cues, Moderate cues, 1 person + 1 person to manage equipment Assistive Device: Hand held assist Transfer Exam: Stand to Sit Level of Harmon: Contact guard Physical/Nonphysical Assist: Verbal Cues, Set-up required Assistive Device: Hand held assist Transfer Exam: Bed to Chair/Chair to Bed Level of Harmon: Minimum assist (75% patient's effort) Physical/Nonphysical Assist: Verbal Cues, Moderate cues, Additional assist utilized for safety, Nonverbal cues (demo/gestures) Type of Transfer: Sidesteps Assistive Device: Hand held assist Toilet Transfer Type of Transfer: Sidesteps, To bedside commode Therapeutic Activity (30 minutes) See above sections for task specific interventions: bed mobility and transfers. Pt requires cueing for sequencing/safety with transfers. Pt requires increased time in sitting on EOB to acclimate to upright position. Increased time required for ICU line management and organization. Pt required minimal to moderate verbal and tactile cueing for supine<>sit transfers for UE and LE placement to e nsure efficient use of body mechanics. Pt endorsed signs/symptoms of SOB/fatigue/dizziness upon sitting upright. Symptoms resided with increased time. Pt required moderate cueing for side steps and weight shifting to transition to bedside commode safely. Pt required tactile cueing at hips for hip extension upon standing from bedside commode for pericare. Further transfers/ambulation deferred thisdate 2/2 increased fatigue this date. Therapeutic Exercise (8 minutes) - Seated Long Arc Quad - 1 x daily - 7 x weekly - 1 sets - 15 reps - Seated March - 1 x daily - 7 xweekly - 1 sets - 15 reps - Supine Gluteal Sets - 1 x daily - 7 x weekly - 1 sets - 15 reps - Seated Hip Abduction - 1 x daily - 7 x weekly - 1 sets - 15 reps - Seated Ankle Pumps - 1 x daily - 7 x weekly - 1 sets - 15 reps Sitting home exercise program created for patient following session to maintain strength, balance, and endurance outside of sessions. Pt agreeable to HEP. Standardized Assessments [facility] 6-Clicks Mobility Assessment Difficulty patient has turning over in bed (including adjusting bedclothes, sheets, and blankets)?:A little Difficulty patient has sitting down on and standing up from a chair with arms (wheelchair, bedside commode, etc.)?: A little Difficulty patient has moving from lying on back to sitting on the side of the bed?: A lot How much help does the patient need moving to and from a bed to a chair (including a wheelchair)?: A little How much help does the patient need to walk in hospital room?: A little How much help does the patient need climbing 3-5 steps with a railing?: A lot [facility] 6-Clicks Mobility Assessment Total : 16 Assessment Pt demo's good strength and balance this date. Pt is mostly limited by decreased activity tolerance. Pt does not require physical asssitance from transfers/ambulation. VSS. Pt is a fall risk. Pt willcontinue to benefit from skilled PT services to decrease fall risk, progress towards independence with functional mobility, and to promote safe return to home upon d/c when appropriate. PT services recommended to optimize potential level of function. Pt requires acute rehab upon home d/c as she is currently unable to transfer and ambulate without physical assist. Pt does not have such physical assist at home. She is able to participate in 3 hoursof therapy/day and requires medical oversight of a physician. Impairments: Decreased endurance, ventilation, and/or gas exchange, Impaired cognition/safety awareness, Impaired executive functioning, Impaired gait dynamics/performance, Impaired functional mobility/transfers, Impaired balance, Pain, Impaired postural/trunk control, Impaired motor cordination/control, Impaired locomotion, Impaired attention/alertness Activity Limitations: Inability to sit independently, Inability to ambulate household distances, Inability to transfer independently, Impaired attention/alertness, Inability to ambulate independently, Inability to complete ADLs independently, Inability to ambulate community distances Participation Restrictions: Self-care, Home management, Community leisure Activity Tolerance: Tolerates 10 - 20 min activity with multiple rests Diagnosis: Impaired functional mobility Rehab Potential: Good, to achieve stated therapy goals PT Recommendations Discharge Destination: Acute rehab Discharge Equipment: Defer to facility Plan Planned PT Interventions Balance training, Bed mobility training, Gait training, Transfer training, Functional Mobility PT Frequency 2 - 5 times per week PT Duration 2 weeks Goals PT GOAL DETAILS DATE ASSESSED STATUS PROGRESS PT Goal 1: Pt will perform supine<>sit transfers with CGA and HOB flat, no use of bed rails. PT Goal 1 Established Date: 05/07/24 PT Goal 1 Time Frame: 2 weeks 05/21/24 Goal ongoing, Goal not met Continuing progress towards goal PT Goal 2: Pt will perform sit to stand and bed to chair transfers with Stefan and LRD. PT Goal 2 Established Date: 05/07/24 PT Goal 2 Time Frame: 2 weeks 05/21/24 Goal not met, Goal ongoing Good progress towards goal PT Goal 3: Pt will ambulate >600ft with Stefan and LRD. PT Goal 3 Established Date: 05/07/24 PT Goal 3 Time Frame: 2 weeks 05/21/24 Goal not met, Goal ongoing Continuing progress towards goal PT Goal 4: Pt will safely ascend/descend 3 steps with SBA, one handrail. PT Goal 4 Established Date: 05/07/24 PT Goal 4 Time Frame: 2 weeks 05/21/24 Goal not met, Goal ongoing Continuing progress towards goal Written by Fariha Sands on 05/21/24 at 1:13 PM. Cosigned by Divina Yousif at 05/21/2024 1:35 PM EDT Associated attestation - Divina Yousif - 05/21/2024 1:35 PM EDT As the supervising therapist, I was present during the entire PT evaluation/treatment and have reviewed and agree with this document written by the student physical therapist for this patient on thisdate/time. Divina Yousif PT, DPT * Progress Notes - Betty Casas - 05/21/2024 9:01 AM EDT Occupational Therapy Re-Assessment Patient Name: Rere Hunter Today's Date: 05/21/2024 OT Discharge Recommendations: Acute rehab Equipment Recommended: Defer to facility History Rere Hunter is 53 y.o. female admitted 05/01/2024 for work-up of CAD, multiple vessel. Hospital Course 1. S/P CABG x 4 2. CAD, multiple vessel 3. Cardiac volume overload Procedures 05/06/2024 Procedure(s): CABG, 2 OR MORE VESSELS Past Medical History Patient has a past medical history of Anxiety, COPD (chronic obstructive pulmonary disease) ([facility]) (05/01/2024), Depression, GERD (gastroesophageal reflux disease) (05/01/2024), On mechanically assisted ventilation ([facility]) (05/06/2024), Tobacco use (05/01/2024), and Tremor (05/01/2024). Past Surgical History Patient has a past surgical history that includes section, classic; Cholecystectomy; Shoulder surgery; Abdominal adhesion surgery; Hand surgery (Right); and Coronary artery bypass graft (05/06/2024). Precautions Medical Precautions: Fall precautions, Sternal Subjective I just don't have much energy. Participants in Care Family/Caregiver Present: No Presentation Oxygen Therapy: Supplemental oxygen O2 Delivery Method: Nasal cannula O2 Flow Rate (L/min): 1 L/min Lines and Tubes: Telemetry NG/OG [place] Sump 14 Fr Right nostril (Active) Urethral Catheter Temperature probe (Active) PICC Double Lumen 05/19/24 Left Basilic vein (Active) Peripheral IV 05/12/24 Anterior;Left Forearm (Active) Peripheral IV 05/18/24 Anterior;Right;Upper Arm (Active) Pre-Session: Lines intact, Supine, Head of bed elevated, Bed alarm Pre-Session Comments: RN agreeable to session. Post-Session: Sitting in chair, Call light in reach, Lines intact, Chair alarm, RN notified Post-Session Comments: Pt positioned for comfort. All needs met/within reach. Lights on, music, andblinds open. Home Living/Set-Up Lives With: Son, Adult (great aunt;) Home Type: Mobile home Home Adaptive Equipment: None Home Layout: Stairs to enter with rails, One level (pt plans to d/c to a family member's house, onelevel, no GARRISON) Number of Stairs: 3 Prior Level of Function Receives Help From: No assist required prior to admission Level of Mobility: Ambulatory- community Mobility Harmon: Independent gait without device (pt is the caregiver for her great aunt) History of Falls: No ADL Performance: Independent Patient/Family Goals Statement To get better and go home. Objective Pain Pt reporting sternal pain: unrated Pillow support provided at end of session and RN aware. Delirium Screening Urban Agitation Sedation Scale (RASS): Alert and calm Confusion Assessment Method-ICU (CAM-ICU/PCAM-ICU) Feature 1: Acute Onset or Fluctuating Course: Positive Feature 2: Inattention: Negative Feature 3: Altered Level of Consciousness: Negative Feature 4: Disorganized Thinking: Positive Overall CAM-ICU/PCAM-ICU: Negative Cognition Overall Cognitive Status: Within Functional Limits Arousal/Alertness: Appropriate responses to stimuli Mood/Behavior: Alert, Anxious Orientation Level: Oriented X4 Orientation Level Comments: Not oriented to day of the week. Single Step Commands: With increased time, With repetition Multi-Step Commands: With increased time, With repetition Method of Communication: Verbal Vision - Basic Assessment Patient Visual Report: Pt reporting mildly blurry vision upon sitting edge of bed, quickly resolved. Right Upper Extremity Examination RUE ROM Assessment RUE Assessment: Within Functional Limits Manual Muscle Testing - RUE: (NT 2/2 sternal precautions) Sensation Light Touch: Right Upper Extremity: Intact Left Upper Extremity Examination LUE ROM Assessment LUE Assessment: Within Functional Limits Manual Muscle Testing - LUE: (NT 2/2 sternal precautions) Sensation Light Touch: Left Upper Extremity: Intact Right Lower Extremity Examination RLE ROM Assessment RLE Assessment: Within Functional Limits Manual Muscle Testing - RLE: Within functional limits Sensation Light Touch: Right Lower Extremity: Intact Left Lower Extremity Examination LLE Assessment: Within Functional Limits Manual Muscle Testing: Within functional limits Sensation Light Touch: Left Lower Extremity: Intact Bed Mobility Bed Mobility Exam: Scooting/Bridging Level of Harmon: Contact guard (Scoot to edge of bed) Physical/Nonphysical Assist: Additional assist utilized for safety, Verbal Cues, Set-up required Bed Mobility Exam: Supine to Sit Level of Harmon: Moderate assist (50% patient's effort) Physical/Nonphysical Assist: Verbal Cues, Nonverbal cues (demo/gestures), Moderate cues, HOB elevated Transfers Transfer Exam: Sit to stand Level of Harmon: Contact guard Physical/Nonphysical Assist: Verbal Cues, Moderate cues, 1 person + 1 person to manage equipment Assistive Device: Hand held assist Transfer Exam: Stand to Sit Level of Harmon: Contact guard Physical/Nonphysical Assist: Verbal Cues, Set-up required Assistive Device: Hand held assist Transfer Exam: Bed to Chair/Chair to Bed Level of Harmon: Minimum assist (75% patient's effort) Physical/Nonphysical Assist: Verbal Cues, Moderate cues, Additional assist utilized for safety, Nonverbal cues (demo/gestures) Type of Transfer: Sidesteps Assistive Device: Hand held assist Toilet Transfer Level of Harmon: Minimum assist (75% patient's effort) Physical/Nonphysical Assist: Verbal Cues, Moderate cues Type of Transfer: Sidesteps, To bedside commode Assistive Device: Hand held assist Balance Postural Appearance Posture: Within Functional Limits Static Sitting Balance Static Sitting-Level of Assistance: Contact guard Dynamic Sitting Balance Level of Assistance: Contact guard Static Standing Balance Static Standing-Level of Assistance: Contact guard Dynamic Standing Balance Dynamic Standing Level of Assistance: Minimum assistance Self-Care Interventions Self Care/Home Management (ADLs) Time Entry: 15 Self-Care Interventions: Pt educated on sternal precautions prior to mobility and importance of carryover. Pt verbalized understanding but demonstrated fair(- ) carryover. Pt. participated in functional endurance tasks in preparation for high level ADL routines. Upon sitting edge of bed, pt reporting dizziness. Increased time required to adjust to postural changes. Pt completed BSC transfer from edge of bed to recliner with min A via [employer]. Pt required increased time on BSC and supervision for safety. Pt required min A to stand from BSC and total A for posterior hygiene due to impaired dynamic balance requiring UE support to maintain balance. Pt required min A via [employer] to take side steps to recliner. Pt required rest break before completed grooming tasks in supported sitting with b/l LE's elevated. Pt deferred completing in unsupported sitting due to fatigue and pain. Pt required max A for all grooming tasks due to reports of fatigue and NG causing pain when she touched her nose or face. Additional time spent educating patient on ADLs with sternal precautions and potential needs for AE/D ME at discharge. Pt educated on role of OT, discharge recommendations, and expectations for mobility while inpatient. Pt verbalized understanding but would benefit from continued education to improvecarryover. Therapeutic Exercise (8 minutes) Pt provided printed UE HEP. Pt would benefit from continued training for technique and to maximize muscle gain with exercises. Access Code: [email or web address] URL: [email or web address] Date: 05/21/2024Prepared by: Bryson Exercises - Seated Punches - 1 x daily - 7 x weekly - 3 sets - 10 reps - Seated Shoulder Horizontal Abduction and Adduction - 1 x daily - 7 x weekly - 3 sets - 10 reps - Seated Shoulder Flexion - 1 x daily - 7 x weekly - 3 sets - 10 reps - Cervical AROM Flexion and Rotation - 1 x daily - 7 x weekly - 3 sets - 10 reps - Standing Cervical Rotation AROM with Overpressure - 1 x daily - 7 x weekly - 3 sets - 10 reps - Seated Biceps Curl - 1 x daily - 7 x weekly - 3 sets - 10 reps - Seated Scapular Retraction - 1 x daily - 7 x weekly - 3 sets - 10 reps Standardized Assessments [facility] 6-Click Daily Activities Help from Other: Don/Doff Regular Lower Body Clothings: A lot Help From Other: Bathing: A lot Help From Other: Toileting: A lot Help From Other: Don/Doff Upper Body Clothings: Little Help From Other: Grooming: Little Help From Other: Eating Meals: Total (NPO on TPN) [facility] 6 Click - Daily Activities Score: 13 Assessment In addition to OT reassessment, pt participated in OT session with a focus on ADL retraining and functional endurance. Pt tolerated session with fair(-) energy for task becoming fatigued quickly withBSC transfer. Pt is most limited by endurance and pain. Pt would benefit from continued skilled OT services to address AE/DME training, activity tolerance, and overall muscle power needed for increased independence with ADLs and functional mobility. OT Findings: Impaired ADL performance, Impaired IADL performance, Impaired judgment during ADL, Impaired cognition, Impaired attention, Decreased endurance/ventilation/gas exchange, Impaired executive function, Impaired functional mobility, Impaired postural/trunk control, Impaired balance Evaluation/Treatment Tolerance: Patient limited by fatigue, Other (Comment) (decreased cognition and drowsiness) Rehab Potential: Good, to achieve stated therapy goals OT Recommendations Discharge Destination: Acute rehab Discharge Equipment: Defer to facility Demonstrates Need for Referral to Another Service: Social work Plan Planned OT Interventions ADL retraining, IADL retraining, Balance training, Transfer training, Functional mobility, Caregiver education, Cognitive retraining OT Frequency 2 - 5 times per week OT Duration 2 weeks OT GOAL DETAILS DATE ASSESSED STATUS PROGRESS OT Goal 1: Pt will perform functional toilet transfer including entering/exiting bathroom with mod I using DME as needed. OT Goal 1 Established Date: 05/07/24 OT Goal 1 Time Frame: 2 weeks 05/21/24 Goal ongoing Continuing progress towards goal, Progress limited by patient's participation/progress, Medical status inhibiting participation/progress OT Goal 2: Pt will perform three consecutive grooming activities standing at the sink with mod I using DME as needed. OT Goal 2 Established Date: 05/07/24 OT Goal 2 Time Frame: 2 weeks 05/21/24 Goal ongoing Continuing progress towards goal, Medical status inhibiting participation/progress, Progress limited by patient's participation/progress OT Goal 3: Pt will perform three consecutive LB dressing activities in sitting/standing with mod I using DME/AE as needed. OT Goal 3 Established Date: 05/07/24 OT Goal 3 Time Frame: 2 weeks 05/21/24 Goal ongoing Continuing progress towards goal, Medical status inhibiting participation/progress, Progress limited by patient's participation/progress OT Goal 4: Pt will verbalize/demonstrate sternal precautions with 100% accuracy in order to safely participate in her ADL routine. OT Goal 4 Established Date: 05/07/24 OT Goal 4 Time Frame: 2 weeks 05/21/24 Goal ongoing Continuing progress towards goal, Progress limited by patient's participation/progress, Medical status inhibiting participation/progress Written by Betty Casas on 05/21/24 at 2:58 PM. * Pharmacy note - Db Kline - 05/21/2024 7:37 AM EDT Pharmacist TPN Progress Note Patient: Rere Hunter Age: 53 y.o. Admission Date: [id number] Subjective/Objective/Hospital Course: 53 y.o. female with PMHx of CAD, HTN, COPD, GERD, tremor, anxiety, depression, and tobacco use, who is currently hospitalized under the care of the CVT surgery team after having a CABG on 05/06/24. Since surgery she has developed nausea, vomiting, and abdominal pain with imaging findings consistent with ileus. Patient has had inadequate energy intake likely related to ileus and has been NPO x [address] 05/20 showed intraabdominal fluid adjacent to stomach concerning for possible perforation. UGI with no perforartion. TPN consult for ileus + possible leak. 05/17: TPN consult placed 05/19: TPN initiated Problem List[1] Medical History[2] Surgical History[3] Allergies: Latex and Oxycodone LABS: Results from last 7 days Lab Units 05/21/24 0556 05/21/24 0009 05/20/24 2348 05/20/24 1835 05/20/24 0216 05/20/24 0215 05/19/24 1832 05/19/24 1142 05/19/24 0202 05/18/24 0400 05/18/24 0020 05/17/24 1514 GLUCOSE mg/dL 139* -- 141* 141* 135* -- 127* 103* 106* 140* -- < > -- BUN mg/dL 13 -- 12 12 12 -- 11 10 10 9 -- < > -- CREATININE mg/dL 0.68 -- 0.76 0.76 0.78 -- 0.78 0.87 0.91 0.80 -- < > -- SODIUM mmol/L 140 -- 141 141 139 -- 141 141 143 142 -- < > -- POTASSIUM mmol/L 3.7 -- 3.5* 3.5* 3.3* -- 3.9 4.0 4.1 3.6 -- < > -- CHLORIDE mmol/L 108* -- 110* 110* 107 -- 112* 111* 115* 115* -- < > -- CO2 mmol/L 22 -- 23 23 21* -- 21* 20* 19* 17* -- < > -- CALCIUM mg/dL 7.3* -- 7.4* 7.4* 7.5* -- 7.0* 6.9* 6.7* 6.8* -- < > -- CALCIUM IONIZED WB mg/dL 4.2* 4.3* -- -- 4.1* -- -- -- -- 4.2* -- 4.2* PHOSPHORUS mg/dL 3.9 -- 3.1 2.1* -- 3.2 2.8 3.0 -- 3.0 -- -- MAGNESIUM mg/dL 2.2 -- 2.3 2.2 -- 2.7* 1.8* 1.8* 2.0 2.3 < > -- < > = values in this interval not displayed. Results from last 7 days Lab Units 05/20/24 2348 05/20/24 0215 05/19/24 0202 05/18/24 0020 05/17/24 1813 05/17/24 1508 05/17/24 1029 WBC 10*3/uL 12.88* 12.37* 14.70* 14.70* 13.62* 13.08* 16.99* HEMOGLOBIN g/dL 9.6* 9.1* 9.2* 9.6* 9.7* 10.3* 9.2* HEMATOCRIT % 29.5* 28.3* 27.7* 29.0* 29.7* 31.9* 29.1* PLATELETS 10*3/uL 605* 632* 629* 590* 607* 615* 639* Results from last 7 days Lab Units 05/21/24 0556 05/20/24 2348 05/20/245 05/20/245 05/19/24 1832 05/19/24 1142 05/19/24 0202 05/18/24 0400 05/18/24 0020 05/17/24 1023 05/16/24 0320 ALT U/L -- 22 -- 20 -- -- 23 24 27 37* 19 AST U/L -- 39* -- 53* -- -- 53* 53* 61* 83* 60* ALKALINE PHOSPHATASE U/L -- 120* -- 117* -- -- 111* 113* 115* 127* 121* BILIRUBIN TOTAL mg/dL -- 0.7 -- 0.7 -- -- 1.1 1.1 1.1 0.7 0.6 ALBUMIN g/dL 2.0* 2.0* 2.0* 2.2* 2.0* 2.1* 2.0* 2.1* 2.1* 2.1* 2.4* 2.2* Nutrition Labs: Lab Results Component Value Date TRIG 76 05/19/2024 BILITOT 0.7 05/20/2024 ALBUMIN 2.0 (L) 05/21/2024 PREALBUMIN 6.5 (L) 05/09/2024 HGBA1C 5.3 05/01/2024 CRP 225.3 (H) 05/17/2024 IRON 25 (L) 05/14/2024 TIBC 156 (L) 05/14/2024 Microbiology Results Procedure Component Value Units Date/Time Blood Culture (Aerobic/Anaerobet Set) [[id number]] Collected: 05/17/24 1116 Order Status: Completed Specimen: Blood from Wrist, Right Updated: 05/20/24 1201 Culture No growth at day 3 Comprehensive GI Panel by PCR [[id number]] (Normal) Collected: 05/18/24 2347 Order Status: Completed Specimen: Stool from Rectum Updated: 05/19/24 1341 Campylobacter PCR Result Not Detected Plesiomonas shigelloides PCR Result Not Detected Salmonella PCR Result Not Detected Vibrio species PCR Result Not Detected Vibrio cholerae PCR Result Not Detected Yersinia enterocolitica PCR Result Not Detected Enteroaggregative E. coli (EAEC) PCR Result Not Detected Enteropathogenic E. coli (EPEC) PCR Result Not Detected Enterotoxigenic E. coli (ETEC) lt/st PCR Result Not Detected Shiga-like Toxin-Producing E.coli (STEC) stx1/stx2 PCR Resu Not Detected E coli 0157 PCR Result Not Detected Shigella/Enteroinvasive E. coli (EIEC) PCR Result Not Detected Cryptosporidium PCR Result Not Detected Cyclospora cayetanensis PCR Result Not Detected Entamoeba histolytica PCR Result Not Detected Giardia duodenalis (aka Giardia lamblia) PCR Result Not Detected Adenovirus F 40/41 PCR Result Not Detected Astrovirus PCR Result Not Detected Norovirus GI/GII PCR Result Not Detected Rotavirus A PCR Result Not Detected Sapovirus PCR Result Not Detected Narrative: This specimen was tested for the following analytes: Campylobacter species, Plesiomonas shigelloides, Salmonella species, Vibrio species, Vibrio cholerae, Yersinia enterolitica, Enteroaggregative E. coli (EAEC), Enteropathogenic E. Coli (EPEC), Enterotoxigenic E. coli (ETEC), Shiga-like toxin-producing E. coli (STEC), Shigella/Enteroinvasive E. coli (EIEC), Cryptosporidium, Cyclospora cayetanensis, Entamoeba histolytica, Giardia lamblia, Adenovirus f40/41, Astrovirus, Norovirus GI/GII, Rotavirus A, and Sapovirus. Note: Clostridium difficile toxin a/b will no longer be resulted using this platform. Please order the Clostridium difficile by PCR assay if clinically indicated. Vitals: Visit Vitals BP (!) 66/17 Pulse 107 Temp 37.1 ??C (98.8 ??F) (Bladder) Resp (!) 29 Jaida Coma Scale Score: 15 Shaan Scale Score: 16 Oxygen Therapy: Supplemental oxygen Skin Integrity: Bruising Edema: Generalized Wt Readings from Last 3 Encounters: 05/16/24 60.3 kg (132 lb 15 oz) 06/28/23 59 kg (130 lb) 04/26/23 62.6 kg (138 lb) Current Diet Order: Dietary Orders (From admission, onward) Start Ordered 05/18/24 1718 NPO diet Diet effective now 05/18/24 1717 Current Medications aspirin, 150 mg, Rectal, Daily fat emulsion fish/plant based, 250 mL, Intravenous, Every other day heparin (porcine), 5,000 Units, Subcutaneous, q8h micafungin, 100 mg, Intravenous, q24h pantoprazole, 40 mg, Intravenous, BID piperacillin-tazobactam, 4.5 g, Intravenous, q6h potassium chloride, 10 mEq, Intravenous, q1h sodium chloride, 10 mL, Intravenous, q12h Adult 2-in-1 TPN, 65 mL/hr, Last Rate: 65 mL/hr (05/21/24 0700) Current Anthropometrics: Height: 154.9 cm (5' 0.98 ) Weight: 61.1 kg (134 lb 12.8 oz) [place] body weight: 47.8 kg (105 lb 4.8 oz) Adjusted ideal body weight: 52.8 kg (116 lb 5.7 oz) (126.25%) of IBW Body mass index is 25.13 kg/m??. Adjusted wt: 50.9 kg (if over 125% of IBW) CENTRAL IV Access: PICC (05/18/24) Estimated Nutritional Needs: HBE: 1153 Stress Factor: 1.2-1.4 Total Calories/day: 0148-4831 Protein (amino acids): 1.3-1.6 grams/kg Protein (Amino acids): 66-81 grams/day Measured Energy Needs: Respiratory Quotient: 05/21/2024 Plan/Recommendation: Labs reviewed. Continue goal TPN as below. Will continue to monitor. GOAL TPN: DEXTROSE: 18% (281 g/day CHO) AMINO ACIDS: 5% (78 g/day - 1.51 g/kg/day Amino acids) C:A 1:3 @ 65 ml/hr, with 30mg/day thiamine, MVI, and Trace elements Every other day 250ml 20% SMOF lipids 1517 Total kcal/day - 29.8 kcal/kg/day GUR: 3.83 Replace electrolytes outside of TPN Calcium and/or Phosphorus supplements MUST be in a separate line from the TPN to avoid precipitation Obtain BMP, magnesium, and Phos daily x 3days and then at least twice weekly Obtain LFT and TGLY weekly I have monitored the TPN therapy, including the labs, and have communicated any modifications with the primary medical/surgical team. Continue current TPN formula and lipid regimen as above. I have communicated the TPN plan with the IV room. Thank you, Db Kline, PharmD Candidate 2024 Preceptor - Moni Méndez, MagalieD [1] Patient Active Problem List Diagnosis Anxiety and depression COPD (chronic obstructive pulmonary disease) ([facility] [place]) CAD, multiple vessel NSTEMI (non-ST elevated myocardial infarction) ([facility] [place]) GERD (gastroesophageal reflux disease) Leukocytosis Hyperlipidemia THOM (obstructive sleep apnea) S/P CABG x 4 Hypertension Hyperkalemia Cardiac volume overload Hypoglycemia Nausea with vomiting Acute blood loss anemia (ABLA) Gastric perforation ([facility] [place]) [2] Past Medical History: Diagnosis Date Anxiety COPD (chronic obstructive pulmonary disease) ([facility] [place]) 05/01/2024 Continue Duo nebs q6 SPO2 goal >88% Depression GERD (gastroesophageal reflux disease) 05/01/2024 Continue Protonix 40 mg daily On mechanically assisted ventilation ([facility] [place]) 05/06/2024 Arrived to ICU intubated 05/07 extubated to [facility] 3/25 resolved Tobacco use 05/01/2024 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 Complicates all aspects of care and recovery Tremor 05/01/2024 Continue home primidone 50 mg BID [3] Past Surgical History: Procedure Laterality Date ABDOMINAL ADHESION SURGERY SECTION, CLASSIC CHOLECYSTECTOMY CORONARY ARTERY BYPASS GRAFT 05/06/2024 Coronary artery bypass grafting x4 with CHOWDARY to LAD as a free graft, reverse saphenous vein graft sequential to ramus intermedius artery then to obtuse marginal artery 1, reverse saphenous vein graftto PDA.(Reda) HAND SURGERY Right Tendon repair SHOULDER SURGERY Cosigned by Moni Méndez, PharmD at 05/21/2024 3:33 PM EDT Associated attestation - Moni Méndez PharmD - 05/21/2024 3:33 PM EDT I have reviewed the students assessment and plan and agree with the below statements * Progress Notes - Luis Starkey MD - 05/21/2024 7:00 AM EDT Images from the original note were not included. CARDIOTHORACIC SURGERY PROGRESS NOTE SUBJECTIVE Acute Events/Last 24 Hrs: Febrile overnight with some intermittent tachycardia but otherwise HDS, on room air. Several bowel movements yesterday. Abdomen non- tender on exam. Remains NPO and on TPN. Continues to walk. OBJECTIVE All laboratory data, images, tracings, and vital sign data for past 24 hours are personally reviewed unless otherwise noted. Physical Exam VITALS (last 24h) 05/21/2024 7:00 AM 05/21/2024 8:00 AM 05/21/2024 9:00 AM 05/21/2024 10:00 AM 05/21/2024 11:00 AM 05/21/2024 12:00 PM 05/21/2024 1:00 PM Vitals Systolic 111 Diastolic 67 Heart Rate 107 100 117 109 90 79 88 Temp 37.1 C 37.3 C 37.4 C 37.2 C 37.2 C 37.1 C 37.3 C Resp 29 48 30 24 30 28 25 Weight (kg) 61.1 kg BMI 25.46 kg/m2 BSA (m2) 1.62 m2 O2 Delivery Method: Nasal cannula General: alert and oriented, no acute distress, resting in bed HEENT: normocephalic, atraumatic, NGT in place Eyes: no scleral icterus, normal conjunctiva Neck: supple, no trachea deviation Lungs: symmetric chest rise, non-labored breathing Heart: fast rate, well perfused Abdomen: soft, nondistended, non tender to palpation Extremities: no peripheral edema Skin: no rash, no cyanosis and warm to touch Psychiatric: oriented to person/place/time and normal mood/affect Intake/Output Intake/Output Summary (Last 24 hours) at 05/21/2024 1419 Last data filed at 05/21/2024 1300 Gross per 24 hour Intake 2886.07 ml Output 2470 ml Net 416.07 ml Results Labs in last 18 hours CBC WBC 12.88 (H) Hb 9.6 (L) Plt 605 (H) Hct 29.5 (L) ANC 7.60 (H) INR ??, PTT ??, Anti-Xa ?? BMP Na 139 Cl 111 (H) BUN 13 Glu 139 (H) K 4.3 Co2 21 (L) Cr 0.62 Ca 7.5 (L) iCa 4.2 (L) Mg 2.2, Phos 2.9 Lactate ?? LFT AST 39 (H) AlkPhos 120 (H) T Prot 5.7 (L) ALK 22 Bili 0.7 Alb ?? D.Bili ?? Imaging No echocardiogram results found for the past 14 days No valid procedures specified. ASSESSMENT & PLAN Principal Problem: CAD, multiple vessel Active Problems: Anxiety and depression COPD (chronic obstructive pulmonary disease) (CMS/HCC) NSTEMI (non-ST elevated myocardial infarction) (CMS/[facility] [place]) GERD (gastroesophageal reflux disease) Leukocytosis Hyperlipidemia THOM (obstructive sleep apnea) S/P CABG x 4 Hypertension Hyperkalemia Cardiac volume overload Hypoglycemia Nausea with vomiting Acute blood loss anemia (ABLA) Gastric perforation (CMS/HCC) On total parenteral nutrition (TPN) 53 yrs female who underwent 4v CABG on 05/06/[address] Austin. -ASA -NPO -IV metop -NGT LIWS -TPN -Zosyn and Micafungin -BID PPI -Appreciate GI, IR, and general surgery recs -Music, narrative, dog, art therapy -continue ICU care Cardiothoracic Surgery 05/21/24 2:19 PM Cosigned by Maite Austin MD at 05/21/2024 3:03 PM EDT Associated attestation - Maite Austin MD - 05/21/2024 3:03 PM EDT I saw and evaluated the patient with the resident/fellow. I discussed the case with the resident/fellow and agree with the findings and plan as documented. * Progress Notes - Dieudonne Cramer MD - 05/20/2024 1:19 PM EDTAssociated Order(s): Critical Care Post-Procedure Diagnose(s): S/P CABG x 4 Critical Care Performed by: Dieudonne Cramer MD Authorized by: Dieudonne Cramer MD Critical care provider statement: Critical care time (minutes): 38 Critical care time was exclusive of: Separately billable procedures and treating other patients andteaching time Critical care was time spent personally by me on the following activities: Development of treatmentplan with patient or surrogate, ordering and performing treatments and interventions, discussions with consultants, ordering and review of laboratory studies, discussions with primary provider, ordering and review of radiographic studies, evaluation of patient's response to treatment and examination of patient Critical care statement: I saw and evaluated the patient with the resident/ fellow. I discussed thecase with the resident/ fellow and agree with the findings and plan as documented. 05/20/24 Rere Hunter HPI Rere Hunter is a 53 y.o. female who presents with CAD, multiple vessel. If applicable, patient is s/p Procedure(s) and Anesthesia Type: * CABG, 2 OR MORE VESSELS - General. Patient is 14 Days Post-Op with Cardiothoracic Surgery. Past 24 hours: PM: TPN started, d/c D5. Order to flush NG every 4 hours. Needs to ambulate AM: Discussed new imaging with IR and surgery. Viewed as posterior gastric (possible colonic) perforated fluid collection. IR and surgery both declining to drain fluid collection. Saturating well on room air. 20 IV lasix. Ordered hydral PRNs for hypertension. Agreeable to trying to ambulate. Suppository today. Edited by: Carissa Cardoza MD at 05/20/2024 1140 Lines/Drains/Tubes: Patient Lines/Drains/Airways Status Active Active LDAs Name Placement date Placement time Site Days PICC Double Lumen 05/19/24 Left Basilic vein 05/19/24 0050 Basilic vein 1 Peripheral IV 05/12/24 Anterior;Left Forearm 05/12/24 0030 Forearm 8 Peripheral IV 05/18/24 Anterior;Right;Upper Arm 05/18/24 0400 Arm 2 NG/OG [place] Sump 14 Fr Right nostril 05/11/24 2300 Right nostril 8 Urethral Catheter Temperature probe 05/17/24 1430 -- 2 Arterial Line 05/17/24 Right Radial 05/17/24 1400 Radial 2 GCS: [place] Coma Scale Score: 15 Review of Systems All other systems reviewed and are negative. 14 point ROS reviewed and otherwise negative or unobtainable except as noted above or in HPI. Vital signs: Vitals: 05/20/24 1000 BP: Pulse: 95 Resp: 22 Temp: 37.7 ??C (99.9 ??F) SpO2: 92% Intake/Output Summary (Last 24 hours) at 05/20/2024 1319 Last data filed at 05/20/2024 1100 Gross per 24 hour Intake 2548.42 ml Output 2650 ml Net -101.58 ml Physical Exam: Sedation was held for the purposes of examination. Physical Exam Constitutional: Appearance: She is ill-appearing. HENT: Head: Normocephalic. Right Ear: External ear normal. Left Ear: External ear normal. Mouth/Throat: Mouth: Mucous membranes are moist. Eyes: Extraocular Movements: Extraocular movements intact. Pupils: Pupils are equal, round, and reactive to light. Cardiovascular: Rate and Rhythm: Tachycardia present. Pulses: Normal pulses. Pulmonary: Effort: Pulmonary effort is normal. Abdominal: General: Abdomen is flat. Tenderness: There is abdominal tenderness. Skin: Capillary Refill: Capillary refill takes less than 2 seconds. Findings: Bruising present. Comments: Bilateral inner thigh bruising Neurological: Mental Status: She is disoriented. Labs in last 18 hours: CBC WBC 12.37 (H) Hb 9.1 (L) Plt 632 (H) Hct 28.3 (L) ANC 7.92 (H) INR ??, PTT ??, Anti-Xa ?? BMP Na 141 Cl 112 (H) BUN 11 Glu 127 (H) K 3.9 Co2 21 (L) Cr 0.78 Ca 7.0 (L) iCa 4.1 (L) Mg 2.7 (H), Phos ?? Lactate 1.0 LFT AST 53 (H) AlkPhos 117 (H) T Prot 5.5 (L) ALK 20 Bili 0.7 Alb ?? D.Bili ?? Imaging as available: === 05/01/24 === XR CHEST 1 VIEW - Narrative - CLINICAL INDICATION: CABG post -op TECHNIQUE: XR CHEST 1 VIEW COMPARISON: Chest radiograph from 05/19/2024 FINDINGS: Unchanged positioning of the left upper extremity PICC. Sternotomy wires appear intact. An enteric tube projecting within the proximal stomach with side port below the diaphragm. Mediastinal and cardiac contours are stable. Similar degree of left lung predominant multifocal opacities. No pleural effusion or pneumothorax. - Impression - No significant interval change. CRITICAL RESULT: No. COMMUNICATION: Per this written report. By electronically signing this report, I, the attending physician, attest that I have personally reviewed the images/data for the above examination(s) and agree with the final edited report. Drafted by Db Rodríguez MD on 05/20/2024 8:39 AM Final report signed by Edson Ambrose MD on 05/20/2024 9:18 AM Reviewed and agree with above. Assessment and Plan: This patient is critically ill. 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 DVT pro, remove CT 05/11 ASA/statin/BB Anxiety and depression Yes Overview Addendum 05/13/2024 12:37 PM by Christi Sherman APRN 05/07 Continue home bupropion XL 300 mg daily Continue home citalopram 40 mg daily Continue PRN hydroxyzine 25 mg q6 COPD (chronic obstructive pulmonary disease) ([facility] [place]) Yes Overview Addendum 05/12/2024 12:27 PM by Christi Sherman APRN 05/07 Duo nebs q6 SPO2 goal >88% On 4LNC 05/08 on 2LNC 05/09 on 2LNC +40 lasix 05/12 ongoing 3L NSTEMI (non-ST elevated myocardial infarction) ([facility] [place]) Yes Overview Addendum 05/11/2024 10:54 AM by Miguel Downey MD Diagnosed at OSH with elevated troponins of 0.05 to 0.23 to 0.16 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, 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 Repeat troponins pending 05/07 POD 1 4V CABG 05/09 EKG ordered and reviewed no signs of ST changes 05/10 ST 105 05/11 ST 100-105 GERD (gastroesophageal reflux disease) Yes Overview Addendum 05/14/2024 2:06 PM by Cydney Luu MD Continue Protonix 40 mg daily 05/07 extubated, no on home PPI dc'd 05/08 pt denies any GERD symptoms 05/09 + PPI for reflux 05/10 docusate, metoclopramide, miralax, senna, simethicone, continue NG to low intermitted, CLD forpt comfort, passing gas 05/11 as above denies reflux today NG clamp trial 05/14 PPI per blue surgery rec for blood tinged NG output Leukocytosis Yes Overview Signed 05/13/2024 12:38 PM by Christi Sherman, ARASH trending Hyperlipidemia Yes THOM (obstructive sleep apnea) Yes Overview Addendum 05/09/2024 11:15 AM by Miguel Downey MD 05/07 pt declines home CPAP use 3/25 on 2lNC 05/09 96% on 2lNC S/P CABG x 4 Not Applicable Overview Addendum 05/12/2024 12:26 PM by Christi Sherman APRN 05/06 w/Reda 4 chest tubes (mediastinal x2, left pleural, right pleural) A&V wires SBP <140 Aspirin, statin, beta stacey as clinically appropriate 05/07 epi .03 weaning, holding beta block (epi .03) 05/09 off all gtts NSR continue ICU level of care per CT surg Hypertension Yes Overview Addendum 05/09/2024 10:56 AM by Reyna Mcdonald APRN Requiring nitroglycerin gtt upon arrival to ICU 05/07 off gtts, SBP within goal 05/09: increased metop to 50 BID Hyperkalemia No Overview Addendum 05/12/2024 12:28 PM by Christi Sherman APRN Intro op max 7.3 Received dextrose, insulin, calcium, lasix intra-op Now resolved, pt with hypokalemia requiring replacement Cardiac volume overload No Overview Addendum 05/18/2024 10:24 AM by Sidney Jackson MD Diuresis as clinically indicated Hypoglycemia No Overview Addendum 05/13/2024 12:40 PM by Christi Sherman APRN - continue to monitor, checking LFTs On d5 LR at 75 Nausea with vomiting No Overview Addendum 05/14/2024 1:59 PM by Cydney Luu MD - post Reglan/ Simethicone for gastric bubble - may need NG placement, continue to monitor 05/10 docusate, metoclopramide, miralax, senna, simethicone, continue NG to low intermitted, CLD forpt comfort, passing gas , + one time dose of compazine 05/11 KUB reviewed dilated seg of small bowel, NG clamp trial, BM 05/10 denies N/V today 05/12 worsening condition with leukocytosis, tachycardia, tachypnea, nausea and abd complaints- sentfor repeat Ct scan and discussed with surgery team 05/13 continued high NG output Acute blood loss anemia (ABLA) No Overview Signed 05/14/2024 2:01 PM by Cydney Luu MD Lab Results Component Value Date HGB 7.2 (L) 05/14/202405/14 iron studies sent, 1u pRBCs Gastric perforation (CMS/HCC) Unknown Overview Signed 05/20/2024 11:57 AM by Jorge Luis La MD Concern for posterior gastric perforation Not seen on UGI but would not be visualized due to posterior position Repeat CTAP 05/20 demonstrating likely posterior perforation IR and SGE state no intervention at this time Continue zosyn and micafungin, unclear stop date at this time Jorge Luis La MD * Pharmacy note - Iman Nice, PharmD - 05/20/2024 1:09 PM EDT Pharmacist TPN Progress Note Patient: Rere Hunter Age: 53 y.o. Admission Date: [id number] Subjective/Objective/Hospital Course: 53 y.o. female with PMHx of CAD, HTN, COPD, GERD, tremor, anxiety, depression, and tobacco use, who is currently hospitalized under the care of the CVT surgery team after having a CABG on 05/06/24. Since surgery she has developed nausea, vomiting, and abdominal pain with imaging findings consistent with ileus. Patient has had inadequate energy intake likely related to ileus and has been NPO x [address] 05/20 showed intraabdominal fluid adjacent to stomach concerning for possible perforation. UGI with no perforartion. TPN consult for ileus + possible leak. 05/17: TPN consult placed 05/19: TPN initiated Allergies: Latex and Oxycodone LABS: Results from last 7 days Lab Units 05/20/24 0216 05/20/24 0215 05/19/24 1832 05/19/24 1142 05/19/24 0202 05/18/24 0400 05/18/24 0020 05/17/24 1514 05/17/24 1508 05/17/24 1023 05/16/24 0320 05/15/24 0113 05/14/24 0335 GLUCOSE mg/dL -- 127* 103* 106* 140* -- 112* -- 68* 58* 69* < > 99 109* BUN mg/dL -- 11 10 10 9 -- 13 -- 14 13 13 < > 17 16 CREATININE mg/dL -- 0.78 0.87 0.91 0.80 -- 0.77 -- 0.75 0.79 0.77 < > 0.90 0.89 SODIUM mmol/L -- 141 141 143 142 -- 143 -- 146* 147* 150* < > 145 141 POTASSIUM mmol/L -- 3.9 4.0 4.1 3.6 -- 4.2 -- 4.1 4.0 4.1 < > 3.3* 3.6 CHLORIDE mmol/L -- 112* 111* 115* 115* -- 115* -- 115* 116* 118* < > 111* 109* CO2 mmol/L -- 21* 20* 19* 17* -- 19* -- 17* 14* 16* < > 22 23 CALCIUM mg/dL -- 7.0* 6.9* 6.7* 6.8* -- 7.5* -- 7.4* 7.4* 7.4* < > 7.3* 7.4* CALCIUM IONIZED WB mg/dL 4.1* -- -- -- -- 4.2* -- 4.2* -- -- -- -- -- PHOSPHORUS mg/dL -- -- 2.8 3.0 -- 3.0 -- -- 3.5 -- -- 3.9 3.6 MAGNESIUM mg/dL -- 2.7* 1.8* 1.8* 2.0 2.3 2.6* -- 1.8* 1.8* < > 1.9 2.0 < > = values in this interval not displayed. Results from last 7 days Lab Units 05/20/24 0215 05/19/24 0202 05/18/24 0020 05/17/24 1813 05/17/24 1508 05/17/24 1029 05/16/24 0320 WBC 10*3/uL 12.37* 14.70* 14.70* 13.62* 13.08* 16.99* 20.02* HEMOGLOBIN g/dL 9.1* 9.2* 9.6* 9.7* 10.3* 9.2* 8.8* HEMATOCRIT % 28.3* 27.7* 29.0* 29.7* 31.9* 29.1* 27.6* PLATELETS 10*3/uL 632* 629* 590* 607* 615* 639* 480* Results from last 7 days Lab Units 05/20/24 0215 05/19/24 1832 05/19/24 1142 05/19/24 0202 05/18/24 0400 05/18/24 0020 05/17/24 1023 05/16/24 0320 05/15/24 0113 ALT U/L 20 -- -- 23 24 27 37* 19 20 AST U/L 53* -- -- 53* 53* 61* 83* 60* 68* ALKALINE PHOSPHATASE U/L 117* -- -- 111* 113* 115* 127* 121* 129* BILIRUBIN TOTAL mg/dL 0.7 -- -- 1.1 1.1 1.1 0.7 0.6 1.0 ALBUMIN g/dL 2.0* 2.1* 2.0* 2.1* 2.1* 2.1* 2.4* 2.2* 2.4* Nutrition Labs: Lab Results Component Value Date TRIG 76 05/19/2024 BILITOT 0.7 05/20/2024 ALBUMIN 2.0 (L) 05/20/2024 PREALBUMIN 6.5 (L) 05/09/2024 HGBA1C 5.3 05/01/2024 CRP 225.3 (H) 05/17/2024 IRON 25 (L) 05/14/2024 TIBC 156 (L) 05/14/2024 Microbiology Results Procedure Component Value Units Date/Time Blood Culture (Aerobic/Anaerobet Set) [[id number]] Collected: 05/13/24 0947 Order Status: Completed Specimen: Blood from AC, Right Updated: 05/16/24 1101 Culture No growth at day 3 Vitals: Visit Vitals BP (!) 66/17 Pulse 95 Temp 37.7 ??C (99.9 ??F) (Bladder) Resp 22 Jaida Coma Scale Score: 15 Shaan Scale Score: 16 Oxygen Therapy: None (Room air) Skin Integrity: Bruising Edema: Generalized Wt Readings from Last 3 Encounters: 05/16/24 60.3 kg (132 lb 15 oz) 06/28/23 59 kg (130 lb) 04/26/23 62.6 kg (138 lb) Current Diet Order: Dietary Orders (From admission, onward) Start Ordered 05/18/24 1718 NPO diet Diet effective now 05/18/24 1717 Current Medications aspirin, 150 mg, Rectal, Daily bisacodyl, 10 mg, Rectal, Daily fat emulsion fish/plant based, 250 mL, Intravenous, Every other day heparin (porcine), 5,000 Units, Subcutaneous, q8h micafungin, 100 mg, Intravenous, q24h pantoprazole, 40 mg, Intravenous, BID piperacillin-tazobactam, 4.5 g, Intravenous, q6h sodium chloride, 10 mL, Intravenous, q12h Adult 2-in-1 TPN, 65 mL/hr, Last Rate: 65 mL/hr (05/20/24 1100) Current Anthropometrics: Height: 154.9 cm (5' 0.98 ) Weight: 61.1 kg (134 lb 12.8 oz) [place] body weight: 47.8 kg (105 lb 4.8 oz) Adjusted ideal body weight: 52.8 kg (116 lb 5.7 oz) (126.25%) of IBW Body mass index is 25.13 kg/m??. Adjusted wt: 50.9 kg (if over 125% of IBW) CENTRAL IV Access: PICC (05/18/24) Estimated Nutritional Needs: HBE: 1153 Stress Factor: 1.2-1.4 Total Calories/day: 4293-2950 Protein (amino acids): 1.3-1.6 grams/kg Protein (Amino acids): 66-81 grams/day 05/20/2024 Plan/Recommendation: Advance to goal TPN. GOAL TPN: DEXTROSE: 18% (281 g/day CHO) AMINO ACIDS: 5% (78 g/day - 1.51 g/kg/day Amino acids) C:A 1:2 @ 65 ml/hr, with 30mg/day thiamine, MVI, and Trace elements Every other day 250ml 20% SMOF lipids 1517 Total kcal/day - 29.8 kcal/kg/day GUR: 3.83 Replace electrolytes outside of TPN Calcium and/or Phosphorus supplements MUST be in a separate line from the TPN to avoid precipitation Obtain BMP, magnesium, and Phos daily x 3days and then at least twice weekly Obtain LFT and TGLY weekly I have monitored the TPN therapy, including the labs, and have communicated any modifications with the primary medical/surgical team. Continue current TPN formula and lipid regimen as above. I have communicated the TPN plan with the IV room. Thank you, Iman Nice PharmD Surgery/Trauma Pharmacist * Progress Notes - Iman Massey MD - 05/20/2024 12:55 PM EDT Surgical ICU Daily Progress Note 05/20/24 Rere Hunter HPI 53F with history of HTN, HLD, COPD, GERD, tobacco use, and CAD s/p 4v CABG on 05/06. SGE consulted for post-operative ileus. Interval: febrile and tachycardic. CT showed intraabdominal contained fluid adjacent to stomach concerning for possible perforation. UGI initially wo contrast extrav but followup with contrast extrav. EGD could worsen perforation and IR drain placement could cause fluid to spread throughout abdomen. Surgery also not a good option. Rec NG to suction and TPN with watchful waiting. Edited by: Iman Massey MD at 05/20/2024 1505 Relevant review of systems was obtained as able and is negative unless stated above in HPI. Vital signs: Visit Vitals BP (!) 66/17 Pulse (!) 123 Temp (!) 38.3 ??C (100.9 ??F) (Bladder) Resp (!) 40 Ht 1.549 m (5' 0.98 ) Wt 60.3 kg (132 lb 15 oz) SpO2 96% BMI 25.13 kg/m?? Smoking Status Every Day BSA 1.61 m?? Intake/Output Summary (Last 24 hours) at 05/20/2024 1509 Last data filed at 05/20/2024 1400 Gross per 24 hour Intake 2338.42 ml Output 3000 ml Net -661.58 ml Physical Exam: Physical Exam Constitutional: Appearance: She is ill-appearing. HENT: Head: Normocephalic. Nose: Nose normal. Comments: NG Mouth/Throat: Pharynx: Oropharynx is clear. Cardiovascular: Rate and Rhythm: Tachycardia present. Pulmonary: Effort: Pulmonary effort is normal. No respiratory distress. Abdominal: General: There is no distension. Palpations: Abdomen is soft. Tenderness: There is abdominal tenderness (RLQ). There is guarding. Skin: General: Skin is warm and dry. Neurological: Mental Status: She is alert and oriented to person, place, and time. Psychiatric: Comments: anxious Lines/Drains/Tubes: Patient Lines/Drains/Airways Status Active Airway None O2 Delivery Method: Nasal cannula Output by Drain (mL) 05/18/24 07 - 05/18/24 18505/18/24 190 - 05/19/24 0659 05/19/24699 - 05/19/24 1859 05/19/24 190 - 05/20/24 0659 05/20/24 07 - 05/20/24 1509 Requested LDAs do not have output data documented. Labs in last 18 hours: CBC WBC 12.37 (H) Hb 9.1 (L) Plt 632 (H) Hct 28.3 (L) ANC 7.92 (H) INR ??, PTT ??, Anti-Xa ?? BMP Na 141 Cl 112 (H) BUN 11 Glu 127 (H) K 3.9 Co2 21 (L) Cr 0.78 Ca 7.0 (L) iCa 4.1 (L) Mg 2.7 (H), Phos 3.2 Lactate 1.0 LFT AST 53 (H) AlkPhos 117 (H) T Prot 5.5 (L) ALK 20 Bili 0.7 Alb ?? D.Bili ?? Lab Trends: H/H Results from last 7 days Lab Units 05/20/24 0215 05/19/24 0202 05/18/24 0020 HEMOGLOBIN g/dL 9.1* 9.2* 9.6* HEMATOCRIT % 28.3* 27.7* 29.0* INR Results from last 7 days Lab Units 05/17/24 1508 INR 1.7* Cr Results from last 7 days Lab Units 05/20/24 0215 05/19/24 1832 05/19/24 1142 CREATININE mg/dL 0.78 0.87 0.91 Medications reviewed. Vital signs reviewed. Labs reviewed. Radiography reviewed. 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 DVT pro, remove CT 05/11 ASA/statin/BB Anxiety and depression Yes Overview Addendum 05/13/2024 12:37 PM by Christi Sherman APRN 05/07 Continue home bupropion XL 300 mg daily Continue home citalopram 40 mg daily Continue PRN hydroxyzine 25 mg q6 COPD (chronic obstructive pulmonary disease) (CMS/HCC) Yes Overview Addendum 05/12/2024 12:27 PM by Christi Sherman APRN 05/07 Duo nebs q6 SPO2 goal >88% On 4LNC 05/08 on 2LNC 05/09 on 2LNC +40 lasix 05/12 ongoing 3L NSTEMI (non-ST elevated myocardial infarction) ([facility] [place]) Yes Overview Addendum 05/11/2024 10:54 AM by Miguel Downey MD Diagnosed at OSH with elevated troponins of 0.05 to 0.23 to 0.16 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, 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 Repeat troponins pending 05/07 POD 1 4V CABG 05/09 EKG ordered and reviewed no signs of ST changes 05/10 ST 105 05/11 ST 100-105 GERD (gastroesophageal reflux disease) Yes Overview Addendum 05/14/2024 2:06 PM by Cydney Luu MD Continue Protonix 40 mg daily 05/07 extubated, no on home PPI dc'd 05/08 pt denies any GERD symptoms 05/09 + PPI for reflux 05/10 docusate, metoclopramide, miralax, senna, simethicone, continue NG to low intermitted, CLD forpt comfort, passing gas 05/11 as above denies reflux today NG clamp trial 05/14 PPI per blue surgery rec for blood tinged NG output Leukocytosis Yes Overview Signed 05/13/2024 12:38 PM by Christi Sherman APRN trending Hyperlipidemia Yes THOM (obstructive sleep apnea) Yes Overview Addendum 05/09/2024 11:15 AM by Miguel Downey MD 05/07 pt declines home CPAP use 05/08 on 2lNC 05/09 96% on 2lNC S/P CABG x 4 Not Applicable Overview Addendum 05/12/2024 12:26 PM by Christi Sherman APRN 05/06 w/Reda 4 chest tubes (mediastinal x2, left pleural, right pleural) A&V wires SBP <140 Aspirin, statin, beta stacey as clinically appropriate 05/07 epi .03 weaning, holding beta block (epi .03) 05/09 off all gtts NSR continue ICU level of care per CT surg Hypertension Yes Overview Addendum 05/09/2024 10:56 AM by Reyna Mcdonald APRN Requiring nitroglycerin gtt upon arrival to ICU 05/07 off gtts, SBP within goal 05/09: increased metop to 50 BID Hyperkalemia No Overview Addendum 05/12/2024 12:28 PM by Christi Sherman APRN Intro op max 7.3 Received dextrose, insulin, calcium, lasix intra-op Now resolved, pt with hypokalemia requiring replacement Cardiac volume overload No Overview Addendum 05/18/2024 10:24 AM by Sidney Jackson MD Diuresis as clinically indicated Hypoglycemia No Overview Addendum 05/13/2024 12:40 PM by Christi Sherman APRN - continue to monitor, checking LFTs On d5 LR at 75 Nausea with vomiting No Overview Addendum 05/14/2024 1:59 PM by Cydney Luu MD - post Reglan/ Simethicone for gastric bubble - may need NG placement, continue to monitor 05/10 docusate, metoclopramide, miralax, senna, simethicone, continue NG to low intermitted, CLD forpt comfort, passing gas , + one time dose of compazine 05/11 KUB reviewed dilated seg of small bowel, NG clamp trial, BM 05/10 denies N/V today 05/12 worsening condition with leukocytosis, tachycardia, tachypnea, nausea and abd complaints- sentfor repeat Ct scan and discussed with surgery team 05/13 continued high NG output Acute blood loss anemia (ABLA) No Overview Signed 05/14/2024 2:01 PM by Cydney Luu MD Lab Results Component Value Date HGB 7.2 (L) 05/14/202405/14 iron studies sent, 1u pRBCs Gastric perforation (CMS/HCC) Unknown Overview Signed 05/20/2024 11:57 AM by Jorge Luis La MD Concern for posterior gastric perforation Not seen on UGI but would not be visualized due to posterior position Repeat CTAP 05/20 demonstrating likely posterior perforation IR and SGE state no intervention at this time Continue zosyn and micafungin, unclear stop date at this time To Do: - UGI completed with delayed leak from GI - No acute surgical intervention due to location of possible leak and contained nature - continue antibiotics, NGT drainage - flush NGT q4 hours to ensure patency and adequate drainage -TPN for parenteral nutrition, NPO - PPI - If exam changes or signs consistent with worsening infection, can consider surgical intervention - Extensively counseled patient and her family at bedside on pt's condition and plan - SGE will continue to follow Edited by: Iman Massey MD at 05/20/2024 1509 Iman Massey MD Procedures Cosigned by Judy Mancuso MD at 05/26/2024 6:49 PM EDT Associated attestation - Judy Mancuso MD - 05/26/2024 6:49 PM EDT Hemodynamically normal. Abdominal pain and tenderness improving. Imaging shows contained perforation possibly from proximal stomach/GEJ vs pinpoint hole at splenic flexure. Will continue serial abdominal exams and antibiotics. Judy Mancuso MD, PhD Acute Care Surgery, Trauma and Surgical Critical Care I saw and evaluated the patient with the resident/fellow. I discussed the case with the resident/fellow and agree with the findings and plan as documented. * Progress Notes - Sundeep Newsome MD - 05/20/2024 10:57 AM EDT CARDIOTHORACIC SURGERY PROGRESS NOTE SUBJECTIVE Acute Events/Last 24 Hrs: Repeat CT Scan this AM showing active contrast extravasation outside of GI tract. Spoke with general surgery who's recommending IR drainage with TPN and antibiotics given the location (posterior stomach). Patient afebrile overnight. AUOP. BM x 5. CXR with improving edema. WBC 12 (14). Lytes controlled. OBJECTIVE All laboratory data, images, tracings, and vital sign data for past 24 hours are personally reviewed unless otherwise noted. Physical Exam VITALS (last 24h) 05/20/2024 4:00 AM 05/20/2024 5:00 AM 05/20/2024 6:00 AM 05/20/2024 7:00 AM 05/20/2024 8:00 AM 05/20/2024 9:00 AM 05/20/2024 10:00 AM Vitals Heart Rate 99 105 99 102 100 100 95 Temp 37.6 C 37.7 C 37.5 C 37.4 C 37.4 C 37.5 C 37.7 C Resp 23 24 21 23 20 21 22 O2 Delivery Method: Nasal cannula General: alert and oriented, ill appearing HEENT: normocephalic, atraumatic, NGT in place Eyes: no scleral icterus, normal conjunctiva Neck: supple, no trachea deviation Lungs: symmetric chest rise, non-labored breathing Heart: fast rate, well perfused Abdomen: soft, distended, moderately tender to palpation; most in the RUQ Extremities: no peripheral edema Skin: no rash, no cyanosis and warm to touch Psychiatric: oriented to person/place/time and normal mood/affect Intake/Output Intake/Output Summary (Last 24 hours) at 05/20/2024 1057 Last data filed at 05/20/2024 1000 Gross per 24 hour Intake 2783.42 ml Output 3100 ml Net -316.58 ml Results Labs in last 18 hours CBC WBC 12.37 (H) Hb 9.1 (L) Plt 632 (H) Hct 28.3 (L) ANC 7.92 (H) INR ??, PTT ??, Anti-Xa ?? BMP Na 141 Cl 112 (H) BUN 11 Glu 127 (H) K 3.9 Co2 21 (L) Cr 0.78 Ca 7.0 (L) iCa 4.1 (L) Mg 2.7 (H), Phos 2.8 Lactate 1.0 LFT AST 53 (H) AlkPhos 117 (H) T Prot 5.5 (L) ALK 20 Bili 0.7 Alb ?? D.Bili ?? Imaging No echocardiogram results found for the past 14 days No valid procedures specified. ASSESSMENT & PLAN Principal Problem: CAD, multiple vessel Active Problems: Anxiety and depression COPD (chronic obstructive pulmonary disease) (CMS/HCC) NSTEMI (non-ST elevated myocardial infarction) (CMS/HCC) GERD (gastroesophageal reflux disease) Leukocytosis Hyperlipidemia THOM (obstructive sleep apnea) S/P CABG x 4 Hypertension Hyperkalemia Cardiac volume overload Hypoglycemia Nausea with vomiting Acute blood loss anemia (ABLA) 53 yrs female who underwent 4v CABG on 05/06/[address] Austin. -ASA -NPO -mIVF -TPN -Zosyn and Micafungin -BID PPI -Appreciate GI and general surgery recs -consult IR for drain in the fluid collection -send off fluid studies (gram stain, cell count, culture, etc.) -characterize fluid to assist general surgery -Music, narrative, dog, art therapy -continue ICU care Cardiothoracic Surgery 05/20/24 10:57 AM Cosigned by Sully Cronin MD at 05/24/2024 7:40 AM EDT Associated attestation - Sully Cronin MD - 05/24/2024 7:40 AM EDT I saw and evaluated the patient with the resident/fellow. I discussed the case with the resident/fellow and agree with the findings and plan as documented. * Consults - Fito Saeed - 05/20/2024 8:42 AM EDTAssociated Order(s): Inpatient Consult to Interventional Radiology Images from the original note were not included. Inpatient Consult to Interventional Radiology Consult performed by: Fito Saeed PA Consult ordered by: Maite Austin MD Reason for consult: gastric drain placement Vascular & Interventional Radiology Consult Note 05/20/24 Patient: Rere Hunter Date of : 1970/53 y.o. Requesting Service: CT Surgery Requesting Provider: Maite Austin MD Chief Complaint: Chest pain Reason for Consult: drain placement History of Present Illness: Rere Hunter is a 53 y.o. female with a PMHx of CAD, HTN, COPD, GERD, tremor, anxiety, depression, and tobacco use who presented to [facility] on 05/01/24 with chest pain. Loaded with ASA and Plavix. LHC at OSH performed showed critical distal left main artery stenosis. Also diagnosed with NSTEMI at OSH with elevated troponins of 0.05 to 0.23 to 0.16. Placed on a heparin drip prior to arrival. Transferred to [facility] on 05/01/24 for CABG evaluation by CT Surgery. Underwent CABG here at on 05/06. Post-op course complicated by ileus and gas &fluid collection along the gastric fundus. We were consulted on 05/18 and recommended GI consultation. GI was consulted and recommended UGI series which was completed on 05/18 demonstrating no leak from the stomach. Repeat CT A/P obtained this morning demonstrating obvious perforation of posterior stomach. VIR is consulted for drain placement History and admission information obtained from chart review of primary and consulting teams notation, as well as speaking directly to consulting team. The following portions of the chart were reviewed this encounter and updated as appropriate: Review of Systems: Pertinent imaging for the consultation reviewed. 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 Allergies[3] Objective: All laboratory, images, tracings, and vital sign data are personally reviewed unless otherwise noted. VITALS: Temp: [37.4 ??C (99.3 ??F)-38.4 ??C (101.1 ??F)] 37.4 ??C (99.3 ??F) Heart Rate: [99-114] 100 Resp: [19-32] 20 Weight: 61.1 kg (134 lb 12.8 oz) Body mass index is 25.13 kg/m??. I & O SUMMARY I/O last 3 completed shifts: In: 4605.3 (76.4 mL/kg) [I.V.:10 (0.2 mL/kg); NG/GT:200; IV Piggyback:3755] Out: 5010 (83.1 mL/kg) [Urine:4910 (2.3 mL/kg/hr); Emesis/NG output:100] Weight: 60.3 kg I/O this shift: In: 130 Out: 150 [Urine:150] MEDICATIONS: Current Medications[4] LABS (PAST 18Labs in last 18 hours) CBC WBC 12.37 (H) Hb 9.1 (L) Plt 632 (H) Hct 28.3 (L) INR ?? PTT ?? Anti-Xa ?? BMP Na 141 Cl 112 (H) BUN 11 Glu 127 (H) K 3.9 Co2 21 (L) Cr 0.78 Ca 7.0 (L) Mg 2.7 (H) Phos 2.8 Lactate 1.0 LFT AST 53 (H) AlkPhos 117 (H) T Prot 5.5 (L) ALK 20 Bili 0.7 Alb ?? D.Bili ?? HOURS) EXAM: Pertinent imaging for the consultation reviewed. Radiographics/Diagnostics: Imaging personally reviewed and reviewed with attending. === 05/01/24 === CT HEAD WO IV CONTRAST - Narrative - CLINICAL INDICATION: Mental status change, unknown cause TECHNIQUE: Spiral axial CT images of the head were obtained without contrast administration. Total DLP (Dose-Length Product): 1602.32 mGy.cm. Please note: The reported value represents the total of one or more individual components during the CT acquisition on this date and at this time, andas such, the same value may appear in more than one CT report depending on the interpreting/reporting physicians. COMPARISON: None. FINDINGS: Diagnostic Quality: Adequate. No midline shift, mass effect, parenchymal hemorrhage, or evidence of acute territorial infarct. Incidental note is made of a cavum septum pellucidum et cavum vergae. No extra- axial fluid collections. Basal cisterns are patent. No hydrocephalus. There are scattered atherosclerotic calcifications within the carotid siphons. Bilateral lens implants. Otherwise orbits and globes are unremarkable in appearance. Soft Tissues: No significant soft tissue swelling is present. Skull: There are no calvarial destructive lesions or fractures. Sinuses and Mastoids: Nasal septum is midline. The paranasal sinuses, mastoid air cells, and middleear canals are well-aerated. Right nasoenteric tube terminates outside the field of view. - Impression - * There is no evidence of intracranial mass, hemorrhage, or acute territorial infarction. RECOMMENDATION: If there is persistent clinical concern for infarct, brain MRI is recommended. CRITICAL RESULT: No. COMMUNICATION: Per this written report. Drafted by Sundeep Fabian MD on 05/18/2024 2:45 AM Final report signed by Sundeep Fabian MD on 05/18/2024 2:52 AM === 05/01/24 === XR ABDOMEN 1 VIEW - Narrative - CLINICAL INDICATION: ileus TECHNIQUE: Supine radiograph of the abdomen. COMPARISON: Upper GI fluoroscopy 05/18/2024. CT abdomen and pelvis 05/18/2024 FINDINGS: Enteric tube terminates within the proximal to mid stomach. The contrast administered yesterday during the upper GI study is seen throughout the colon, having reached the rectum. This precludes significant obstruction. There is some prominence in caliber of the large bowel, ascending colon measuring up to 8.5 cm diameter and transverse colon measuring up to7.1 cm in diameter, perhaps representing mild ileus, as noted on yesterday's CT. No obvious edematous thumbprinting or pneumatosis of the colonic wall. No abnormal gaseous small bowel dilatation. No overt pneumoperitoneum. Urinary catheter in place. Sternotomy sutures. Evidence of prior CABG with mild cardiomegaly. Slightly coarsened pulmonary bronchovascular markings may represent an element of mild interstitial edema. No acute osseous abnormality. - Impression - Mildly prominent caliber of the ascending and transverse colonic segments that may represent mild ileus, similar to CT from yesterday. No evidence of bowel obstruction with transit of contrast administered yesterday to the rectum. CRITICAL RESULT: No. COMMUNICATION: Per this written report. By electronically signing this report, I, the attending physician, attest that I have personally reviewed the images/data for the above examination(s) and agree with the final edited report. Drafted by GER Moctezuma on 05/19/2024 8:15 AM Final report signed by Khari Bray MD on 05/19/2024 8:40 AM Echo, Adult Transthoracic Complete Result Date: 05/02/2024 Left Ventricle: Based on the linear dimension and/or 2D volumes, the left ventricle is normal in size. There is normal left ventricular myocardial thickness and mass. The left ventricular systolic function is normal. The LVEF as measured by Heart Model 3D volume is 61%. The diastolic function is normal. The left ventricular filling pressure is normal. Right Ventricle: The right ventricle is normal in size. The right ventricular systolic function is normal. All cardiac valves were reasonably well interrogated with 2D imaging and/or Doppler assessment and no significant valve regurgitation or stenosis is seen. There is no recent study available for direct [id number] comparison. Assessment & Plan: Multivessel CAD s/p CABG Gastric fluid/gas collection - presented to [facility] on 05/01/24 with chest pain. Loaded with ASA and Plavix. - LHC at OSH performed showed critical distal left main artery stenosis. - Also diagnosed with NSTEMI at OSH with elevated troponins of 0.05 to 0.23 to 0.16. - Placed on a heparin drip prior to arrival. Transferred to [facility] on 05/01/24 for CABG evaluation by CT Surgery. - Underwent CABG here at on 05/06. - Post-op course complicated by ileus and gas & fluid collection along the gastric fundus. - We were consulted on 05/18 and recommended GI consultation. - Blue surgery consulted, no acute surgical intervention - GI was consulted and recommended UGI series which was completed on 05/18 demonstrating no leak fromthe stomach. Personally reviewed - Repeat CT A/P obtained this morning demonstrating obvious perforation of posterior stomach as demonstrated below on series 2 image 26 - INR ??, Plt 632 (H) - VSS, Afebrile PLAN: - Case and images reviewed with IR attending Dr. Dale. There is obvious posterior gastric perforation. Upper GI series did not demonstrate the leak because it is posterior to stomach and not able to be seen on AP view. Recommend against drain placement. Case discussed with IR attending physician, Dr. Dale. Thank you for allowing us to participate in the care of this patient. Fito Saeed PA-C Vascular & Interventional Radiology [1] Past Surgical History: Procedure Laterality Date ABDOMINAL ADHESION SURGERY SECTION, CLASSIC CHOLECYSTECTOMY CORONARY ARTERY BYPASS GRAFT 05/06/2024 Coronary artery bypass grafting x4 with CHOWDARY to LAD as a free graft, reverse saphenous vein graft sequential to ramus intermedius artery then to obtuse marginal artery 1, reverse saphenous vein graftto PDA.(Reda) HAND SURGERY Right Tendon repair SHOULDER SURGERY [2] Social History Tobacco Use Smoking status: Every Day Current packs/day: 0.50 Types: Cigarettes Smokeless tobacco: Never Vaping Use Vaping status: Never Used Substance Use Topics Alcohol use: Not Currently Drug use: Not Currently [3] Allergies Allergen Reactions Latex Other - please document in the comment field Oxycodone Nausea [4] Current Facility-Administered Medications: acetaminophen (Tylenol) suppository 650 mg, 650 mg, Rectal, q6h PRN, Marybel Suarez, AUTOMOTIVE PORTER, 650mg at 05/19/24 1415 Adult 2-in-1 TPN, 65 mL/hr, Intravenous, Continuous, Maite Austin MD, Last Rate: 65 mL/hr at 05/20/24 0800, Rate Verify at 05/20/24 0800 aspirin suppository 150 mg, 150 mg, Rectal, Daily, Dieudonne Cramer MD, 150 mg at 05/19/24 0907 benzocaine-menthol (Chloraseptic) 6-10 MG lozenge 1 lozenge, 1 lozenge, Mouth/Throat, q4h PRN, Dave Baird, DO, 1 lozenge at 05/17/24 1624 bisacodyl (Dulcolax) suppository 10 mg, 10 mg, Rectal, Daily, Abhishek Montalvo MD glucose (Glutose) 40 % oral gel 15 grams of glucose, 15 grams of glucose, Sublingual, q15 min PRN OR dextrose 50 % solution 12.5 g, 12.5 g, Intravenous, q15 min PRN, 12.5 g at 05/19/24 0111 OR glucagon (human recombinant) injection 1 mg, 1 mg, Intramuscular, q15 min PRN, Marybel Suarez APRN fat emulsion fish/plant based (SMOFlipid) 20 % IV infusion 250 mL, 250 mL, Intravenous, Every otherday, Maite Austin MD haloperidol lactate (Haldol) injection 2.5 mg, 2.5 mg, Intravenous, q8h PRN, Jorge Luis La MD, 2.5 mg at 05/19/24 1326 heparin (porcine) injection 5,000 Units, 5,000 Units, Subcutaneous, q8h, Sundeep Newsome MD, 5,000 Units at 05/20/24 0159 hydrALAZINE (Apresoline) injection 10 mg, 10 mg, Intravenous, q6h PRN, Jorge Luis La MD HYDROmorphone (Dilaudid) injection 0.25 mg, 0.25 mg, Intravenous, q2h PRN, 0.25 mg at 05/18/24 1735OR HYDROmorphone (Dilaudid) injection 0.5 mg, 0.5 mg, Intravenous, q2h PRN, Sidney Jackson MD, 0.5 mg at 05/20/24 0620 ipratropium-albuterol (Duo-Neb) 0.5-2.5 mg/3 mL nebulizer solution 3 mL, 3 mL, Nebulization, q6h PRN, Trinity Yousif APRN, 3 mL at 05/17/24 1551 micafungin (Mycamine) 100 mg in sodium chloride 0.9 % 100 mL IVPB, 100 mg, Intravenous, q24h, Marybel Suarez, AUTOMOTIVE PORTER, 100 mg at 05/20/24 0454 nicotine (Nicoderm CQ) 14 MG/24HR patch 1 patch, 1 patch, Transdermal, Daily PRN, Arpan Hull MD nicotine polacrilex (Commit) lozenge 2 mg, 2 mg, Mouth/Throat, q2h PRN, Abran Hull MD [DISCONTINUED] ondansetron ODT (Zofran-ODT) disintegrating tablet 4 mg, 4 mg, Oral, q6h PRN OR ondansetron (Zofran) injection 4 mg, 4 mg, Intravenous, q6h PRN, 4 mg at 05/19/24 1305 OR [DISCONTINUED] ondansetron (Zofran) 4 MG/5ML solution 4 mg, 4 mg, Oral, q6h PRN, Jorge Luis La MD pantoprazole (Protonix) injection 40 mg, 40 mg, Intravenous, BID, Jorge Luis La MD phenol (Chloraseptic) 1.4 % mouth/throat spray 1 spray, 1 spray, Mouth/Throat, q2h PRN, Sidney Jackson MD, 1 spray at 05/18/24 1248 piperacillin-tazobactam (Zosyn) 4.5 g in sodium chloride 0.9% 100 mL IVPB (vial adapter required), 4.5 g, Intravenous, q6h, Dieudonne Cramer MD, Last Rate: 36.7 mL/hr at 05/20/24 0233, 4.5 g at 05/20/24 0233 [DISCONTINUED] promethazine (Phenergan) tablet 12.5 mg, 12.5 mg, Nasogastric, q6h PRN, 12.5 mg at 05/17/24 2141 OR [DISCONTINUED] promethazine (Phenergan) 6.25 MG/5ML solution 12.5 mg, 12.5 mg, Nasogastric, q6h PRN, 12.5 mg at 05/16/24 0608 OR promethazine (Phenergan) suppository 25 mg, 25 mg, Rectal, q6h PRN, Trinity Yousif APRN sodium chloride 0.9 % flush 10 mL, 10 mL, Intravenous, q12h, Sidney Jackson MD, 10 mL at 05/20/24 0146 sodium chloride 0.9 % flush 10 mL, 10 mL, Intravenous, q1h PRN, Sidney Jackson MD sodium chloride 0.9 % flush 20 mL, 20 mL, Intravenous, q1h PRN, Sidney Jackson MD thiamine (Vitamin B1) injection 200 mg, 200 mg, Intravenous, q12h, Maite Austin MD, 200 mg at 05/19/242006 * Significant Event - Jayson Estrada MD - 05/19/2024 3:31 PM EDT [facility] ICU Interim Summary Patient seen and examined this AM. Reports feeling okay overall, main complaint is chills and feeling cold. Reports some abdominal soreness. Had BM yesterday evening, continues to pass some flatus. Abdomen more distended on exam. Mild tenderness in RUQ and RLQ. Voluntary guarding initially but not with continued palpation. No evidence of peritonitis on exam. NGT flushed as it was nonfunctional. - UGI completed and no leak from stomach - continue antibiotics, NGT drainage - flush NGT q4 hours to ensure patency and adequate drainage - repeat CT on 05/20/24 to re-evaluate fluid collection - PPI - SGE will continue to follow Jayson Estrada MD PGY-3 General Surgery Pager #[phone] * Progress Notes - Dieudonne Cramer MD - 05/19/2024 2:52 PM EDTAssociated Order(s): Critical Care Post-Procedure Diagnose(s): S/P CABG x 4 Critical Care Performed by: Dieudonne Cramer MD Authorized by: Dieudonne Cramer MD Critical care provider statement: Critical care time (minutes): 38 Critical care time was exclusive of: Separately billable procedures and treating other patients andteaching time Critical care was time spent personally by me on the following activities: Development of treatmentplan with patient or surrogate, ordering and performing treatments and interventions, discussions with consultants, ordering and review of laboratory studies, discussions with primary provider, ordering and review of radiographic studies, evaluation of patient's response to treatment and examination of patient Critical care statement: I saw and evaluated the patient with the resident/ fellow. I discussed thecase with the resident/ fellow and agree with the findings and plan as documented. 05/19/24 Rere Hunter HPI Rere Hunter is a 53 y.o. female who presents with CAD, multiple vessel. If applicable, patient is s/p Procedure(s) and Anesthesia Type: * CABG, 2 OR MORE VESSELS - General. Patient is 13 Days Post-Op with Cardiothoracic Surgery. Past 24 hours: PM: Added tylenol suppository prn. Cdiff + comprehensive GI panel neg. One time dose IV pepcid. PICC obtained, TPN starting tmrw. Will give 2.5 haldol for anxiety. 20 IV lasix- increasing vascular ny on cxr AM: Saturated well on 1 Lpm NC. Will repeat [address] abdomen pelvis without contrast ordered for 6am 4/6. Bowel movement this morning. Daily suppository timed with daily rectal aspirin.PRN haldol 2.5 q8h for anxiety without PO access. Edited by: Jorge Luis La MD at 05/19/2024 1451 Lines/Drains/Tubes: Patient Lines/Drains/Airways Status Active Active LDAs Name Placement date Placement time Site Days PICC Double Lumen 05/19/24 Left Basilic vein 05/19/24 0050 Basilic vein less than 1 Peripheral IV 05/12/24 Anterior;Left Forearm 05/12/24 0030 Forearm 7 Peripheral IV 05/18/24 Anterior;Right;Upper Arm 05/18/24 0400 Arm 1 NG/OG [place] Sump 14 Fr Right nostril 05/11/24 2300 Right nostril 7 Urethral Catheter Temperature probe 05/17/24 1430 -- 2 Arterial Line 05/17/24 Right Radial 05/17/24 1400 Radial 2 GCS: [place] Coma Scale Score: 15 Review of Systems All other systems reviewed and are negative. 14 point ROS reviewed and otherwise negative or unobtainable except as noted above or in HPI. Vital signs: Vitals: 05/19/24 1200 BP: Pulse: (!) 112 Resp: (!) 31 Temp: (!) 38.3 ??C (100.9 ??F) SpO2: 96% Intake/Output Summary (Last 24 hours) at 05/19/2024 1452 Last data filed at 05/19/2024 1326 Gross per 24 hour Intake 2805 ml Output 2705 ml Net 100 ml Physical Exam: Sedation was held for the purposes of examination. Physical Exam Constitutional: Appearance: She is ill-appearing. HENT: Head: Normocephalic. Right Ear: External ear normal. Left Ear: External ear normal. Mouth/Throat: Mouth: Mucous membranes are moist. Eyes: Extraocular Movements: Extraocular movements intact. Pupils: Pupils are equal, round, and reactive to light. Cardiovascular: Rate and Rhythm: Tachycardia present. Pulses: Normal pulses. Pulmonary: Effort: Pulmonary effort is normal. Abdominal: General: Abdomen is flat. Tenderness: There is abdominal tenderness. Skin: Capillary Refill: Capillary refill takes less than 2 seconds. Findings: Bruising present. Comments: Bilateral inner thigh bruising Neurological: Mental Status: She is disoriented. Labs in last 18 hours: CBC WBC 14.70 (H) Hb 9.2 (L) Plt 629 (H) Hct 27.7 (L) ANC 10.82 (H) INR ??, PTT ??, Anti-Xa ?? BMP Na 143 Cl 115 (H) BUN 10 Glu 106 (H) K 4.1 Co2 19 (L) Cr 0.91 Ca 6.7 (L) iCa ?? Mg 1.8 (L), Phos 3.0 Lactate ?? LFT AST 53 (H) AlkPhos 111 (H) T Prot 5.5 (L) ALK 23 Bili 1.1 Alb ?? D.Bili ?? Imaging as available: === 05/01/24 === XR ABDOMEN 1 VIEW - Narrative - CLINICAL INDICATION: ileus TECHNIQUE: Supine radiograph of the abdomen. COMPARISON: Upper GI fluoroscopy 05/18/2024. CT abdomen and pelvis 05/18/2024 FINDINGS: Enteric tube terminates within the proximal to mid stomach. The contrast administered yesterday during the upper GI study is seen throughout the colon, having reached the rectum. This precludes significant obstruction. There is some prominence in caliber of the large bowel, ascending colon measuring up to 8.5 cm diameter and transverse colon measuring up to7.1 cm in diameter, perhaps representing mild ileus, as noted on yesterday's CT. No obvious edematous thumbprinting or pneumatosis of the colonic wall. No abnormal gaseous small bowel dilatation. No overt pneumoperitoneum. Urinary catheter in place. Sternotomy sutures. Evidence of prior CABG with mild cardiomegaly. Slightly coarsened pulmonary bronchovascular markings may represent an element of mild interstitial edema. No acute osseous abnormality. - Impression - Mildly prominent caliber of the ascending and transverse colonic segments that may represent mild ileus, similar to CT from yesterday. No evidence of bowel obstruction with transit of contrast administered yesterday to the rectum. CRITICAL RESULT: No. COMMUNICATION: Per this written report. By electronically signing this report, I, the attending physician, attest that I have personally reviewed the images/data for the above examination(s) and agree with the final edited report. Drafted by GER Moctezuma on 05/19/2024 8:15 AM Final report signed by Khari Bray MD on 05/19/2024 8:40 AM Reviewed and agree with above. Assessment and Plan: This patient is critically ill. 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 DVT pro, remove CT 05/11 ASA/statin/BB Anxiety and depression Yes Overview Addendum 05/13/2024 12:37 PM by Christi Sherman APRN 05/07 Continue home bupropion XL 300 mg daily Continue home citalopram 40 mg daily Continue PRN hydroxyzine 25 mg q6 COPD (chronic obstructive pulmonary disease) ([facility] [place]) Yes Overview Addendum 05/12/2024 12:27 PM by Christi Sherman APRN 05/07 Duo nebs q6 SPO2 goal >88% On 4LNC 05/08 on 2LNC 05/09 on 2LNC +40 lasix 05/12 ongoing 3L NSTEMI (non-ST elevated myocardial infarction) ([facility] [place]) Yes Overview Addendum 05/11/2024 10:54 AM by Miguel Downey MD Diagnosed at OSH with elevated troponins of 0.05 to 0.23 to 0.16 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, 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 Repeat troponins pending 05/07 POD 1 4V CABG 05/09 EKG ordered and reviewed no signs of ST changes 05/10 ST 105 05/11 ST 100-105 GERD (gastroesophageal reflux disease) Yes Overview Addendum 05/14/2024 2:06 PM by Cydney Luu MD Continue Protonix 40 mg daily 05/07 extubated, no on home PPI dc'd 05/08 pt denies any GERD symptoms 05/09 + PPI for reflux 05/10 docusate, metoclopramide, miralax, senna, simethicone, continue NG to low intermitted, CLD forpt comfort, passing gas 05/11 as above denies reflux today NG clamp trial 05/14 PPI per blue surgery rec for blood tinged NG output Leukocytosis Yes Overview Signed 05/13/2024 12:38 PM by Christi Sherman APRN trending Hyperlipidemia Yes THOM (obstructive sleep apnea) Yes Overview Addendum 05/09/2024 11:15 AM by Miguel Downey MD 05/07 pt declines home CPAP use 05/08 on 2lNC 05/09 96% on 2lNC S/P CABG x 4 Not Applicable Overview Addendum 05/12/2024 12:26 PM by Christi Sherman APRN 05/06 w/Reda 4 chest tubes (mediastinal x2, left pleural, right pleural) A&V wires SBP <140 Aspirin, statin, beta stacey as clinically appropriate 05/07 epi .03 weaning, holding beta block (epi .03) 05/09 off all gtts NSR continue ICU level of care per CT surg Hypertension Yes Overview Addendum 05/09/2024 10:56 AM by Reyna Mcdonald APRN Requiring nitroglycerin gtt upon arrival to ICU 05/07 off gtts, SBP within goal 05/09: increased metop to 50 BID Hyperkalemia No Overview Addendum 05/12/2024 12:28 PM by Christi Sherman APRN Intro op max 7.3 Received dextrose, insulin, calcium, lasix intra-op Now resolved, pt with hypokalemia requiring replacement Cardiac volume overload No Overview Addendum 05/18/2024 10:24 AM by Sidney Jackson MD Diuresis as clinically indicated Hypoglycemia No Overview Addendum 05/13/2024 12:40 PM by Christi Sherman, ARASH - continue to monitor, checking LFTs On d5 LR at 75 Nausea with vomiting No Overview Addendum 05/14/2024 1:59 PM by Cydney Luu MD - post Reglan/ Simethicone for gastric bubble - may need NG placement, continue to monitor 05/10 docusate, metoclopramide, miralax, senna, simethicone, continue NG to low intermitted, CLD forpt comfort, passing gas , + one time dose of compazine 05/11 KUB reviewed dilated seg of small bowel, NG clamp trial, BM 05/10 denies N/V today 05/12 worsening condition with leukocytosis, tachycardia, tachypnea, nausea and abd complaints- sentfor repeat Ct scan and discussed with surgery team 05/13 continued high NG output Acute blood loss anemia (ABLA) No Overview Signed 05/14/2024 2:01 PM by Cydney Luu MD Lab Results Component Value Date HGB 7.2 (L) 05/14/202405/14 iron studies sent, 1u pRBCs Jorge Luis La MD The patient's respiratory status is reflective of pulmonary insufficiency, likely related to her gastric perforation. She also has sepsis, with likely infectious source being the same gastric perforation. Bro Cramer MD * Pharmacy note - Iman Nice PharmD - 05/19/2024 1:17 PM EDT Pharmacist TPN Progress Note Patient: Rere Hunter Age: 53 y.o. Admission Date: [id number] Subjective/Objective/Hospital Course: 53 y.o. female with PMHx of CAD, HTN, COPD, GERD, tremor, anxiety, depression, and tobacco use, who is currently hospitalized under the care of the CVT surgery team after having a CABG on 05/06/24. Since surgery she has developed nausea, vomiting, and abdominal pain with imaging findings consistent with ileus. Patient has had inadequate energy intake likely related to ileus and has been NPO x [address] patient's [address] scan shows contrast from her previous scan present in the large bowel, so bowel obstruction is very unlikely. This patient's presentation is most consistent with ileus. 05/17: TPN consult placed Allergies: Latex and Oxycodone LABS: Results from last 7 days Lab Units 05/19/24 1142 05/19/24 0202 05/18/24 0400 05/18/24 0020 05/17/24 1514 05/17/24 1508 05/17/24 1023 05/16/24 1205 05/16/24 0320 05/15/24 0113 05/14/24 0335 05/13/24 0554 05/13/24 0043 GLUCOSE mg/dL 106* 140* -- 112* -- 68* 58* 69* -- 99 99 109* -- 103* BUN mg/dL 10 9 -- 13 -- 14 13 13 -- 13 17 16 -- 18 CREATININE mg/dL 0.91 0.80 -- 0.77 -- 0.75 0.79 0.77 -- 0.91 0.90 0.89 -- 0.98 SODIUM mmol/L 143 142 -- 143 -- 146* 147* 150* -- 144 145 141 -- 143 POTASSIUM mmol/L 4.1 3.6 -- 4.2 -- 4.1 4.0 4.1 4.1 3.5* 3.3* 3.6 -- 3.8 CHLORIDE mmol/L 115* 115* -- 115* -- 115* 116* 118* -- 114* 111* 109* -- 106 CO2 mmol/L 19* 17* -- 19* -- 17* 14* 16* -- 21* 22 23 -- 24 CALCIUM mg/dL 6.7* 6.8* -- 7.5* -- 7.4* 7.4* 7.4* -- 7.4* 7.3* 7.4* -- 7.7* CALCIUM IONIZED WB mg/dL -- -- 4.2* -- 4.2* -- -- -- -- -- -- -- -- PHOSPHORUS mg/dL 3.0 -- 3.0 -- -- 3.5 -- -- -- 3.9 3.6 4.1 4.0 MAGNESIUM mg/dL 1.8* 2.0 2.3 2.6* -- 1.8* 1.8* -- 2.0 1.9 2.0 -- 2.5* Results from last 7 days Lab Units 05/19/24 0202 05/18/24 0020 05/17/24 1813 05/17/24 1508 05/17/24 1029 05/16/24 0320 05/15/24 0113 WBC 10*3/uL 14.70* 14.70* 13.62* 13.08* 16.99* 20.02* 28.49* HEMOGLOBIN g/dL 9.2* 9.6* 9.7* 10.3* 9.2* 8.8* 8.9* HEMATOCRIT % 27.7* 29.0* 29.7* 31.9* 29.1* 27.6* 26.5* PLATELETS 10*3/uL 629* 590* 607* 615* 639* 480* 402* Results from last 7 days Lab Units 05/19/24 1142 05/19/24 0202 05/18/24 0400 05/18/24 0020 05/17/24 1023 05/16/24 0320 05/15/24 0113 05/13/24 0554 ALT U/L -- 23 24 27 37* 19 20 30 AST U/L -- 53* 53* 61* 83* 60* 68* 84* ALKALINE PHOSPHATASE U/L -- 111* 113* 115* 127* 121* 129* 136* BILIRUBIN TOTAL mg/dL -- 1.1 1.1 1.1 0.7 0.6 1.0 1.1 ALBUMIN g/dL 2.0* 2.1* 2.1* 2.1* 2.4* 2.2* 2.4* 2.6* Nutrition Labs: Lab Results Component Value Date TRIG 271 (H) 05/01/2024 BILITOT 1.1 05/19/2024 ALBUMIN 2.0 (L) 05/19/2024 PREALBUMIN 6.5 (L) 05/09/2024 HGBA1C 5.3 05/01/2024 CRP 225.3 (H) 05/17/2024 IRON 25 (L) 05/14/2024 TIBC 156 (L) 05/14/2024 Microbiology Results Procedure Component Value Units Date/Time Blood Culture (Aerobic/Anaerobet Set) [[id number]] Collected: 05/13/24 0947 Order Status: Completed Specimen: Blood from AC, Right Updated: 05/16/24 1101 Culture No growth at day 3 Vitals: Visit Vitals BP (!) 66/17 Pulse (!) 112 Temp (!) 38.3 ??C (100.9 ??F) (Bladder) Resp (!) 31 [place] Coma Scale Score: 15 [place] Scale Score: 16 Oxygen Therapy: Supplemental oxygen Skin Integrity: Bruising, Other (Comment) (surgical site) Edema: Generalized Wt Readings from Last 3 Encounters: 05/16/24 60.3 kg (132 lb 15 oz) 06/28/23 59 kg (130 lb) 04/26/23 62.6 kg (138 lb) Current Diet Order: Dietary Orders (From admission, onward) Start Ordered 05/18/24 1718 NPO diet Diet effective now 05/18/24 1717 Current Medications aspirin, 150 mg, Rectal, Daily bisacodyl, 10 mg, Rectal, Daily furosemide, 20 mg, Intravenous, Once heparin (porcine), 5,000 Units, Subcutaneous, q8h micafungin, 100 mg, Intravenous, q24h ondansetron, , , pantoprazole, 40 mg, Intravenous, Daily piperacillin-tazobactam, 4.5 g, Intravenous, q6h sodium chloride, 10 mL, Intravenous, q12h dextrose 5 % and sodium chloride 0.45 % with KCl 20 mEq/L, 100 mL/hr, Last Rate: 100 mL/hr (05/19/24 1200) Current Anthropometrics: Height: 154.9 cm (5' 0.98 ) Weight: 61.1 kg (134 lb 12.8 oz) [place] body weight: 47.8 kg (105 lb 4.8 oz) Adjusted ideal body weight: 52.8 kg (116 lb 5.7 oz) (126.25%) of IBW Body mass index is 25.13 kg/m??. Adjusted wt: 50.9 kg (if over 125% of IBW) CENTRAL IV Access: PICC (05/18/24) Estimated Nutritional Needs: HBE: 1153 Stress Factor: 1.2-1.4 Total Calories/day: 6867-9915 Protein (amino acids): 1.3-1.6 grams/kg Protein (Amino acids): 66-81 grams/day 05/19/2024 Plan/Recommendation: Patient has been receiving D5 half normal @100 ml/hr and tolerating. Will initiate moderate CHO TPN and advance to goal when electrolytes WNL. Will administer thiamine 200 mg IV x2. MODERATE CHO TPN: DEXTROSE: 14% (218 g/day CHO) AMINO ACIDS: 5% (78 g/day - 1.51 g/kg/day Amino acids) C:A 1:2 @ 65 ml/hr, with 30mg/day thiamine, MVI, and Trace elements Every other day 250ml 20% SMOF lipids Replace electrolytes outside of TPN Calcium and/or Phosphorus supplements MUST be in a separate line from the TPN to avoid precipitation Obtain BMP, magnesium, and Phos daily x 3days and then at least twice weekly Obtain LFT and TGLY weekly GOAL TPN: DEXTROSE: 18% (281 g/day CHO) AMINO ACIDS: 5% (78 g/day - 1.51 g/kg/day Amino acids) C:A 1:2 @ 65 ml/hr, with 30mg/day thiamine, MVI, and Trace elements Every other day 250ml 20% SMOF lipids 1517 Total kcal/day - 29.8 kcal/kg/day GUR: 3.83 I have monitored the TPN therapy, including the labs, and have communicated any modifications with the primary medical/surgical team. Continue current TPN formula and lipid regimen as above. I have communicated the TPN plan with the IV room. Thank you, Iman Nice, PharmD Surgery/Trauma Pharmacist * Progress Notes - Sundeep Newsome MD - 05/19/2024 8:57 AM EDT Images from the original note were not included. CARDIOTHORACIC SURGERY PROGRESS NOTE SUBJECTIVE Acute Events/Last 24 Hrs: Continues to fever and be tachycardic General surgery and GI involved andgiven negative UGI; GI advising against endoscopic intervention and general surgery recommending NPO w/ NGT and interval CT scan tonight to trend fluid collections. OBJECTIVE All laboratory data, images, tracings, and vital sign data for past 24 hours are personally reviewed unless otherwise noted. Physical Exam VITALS (last 24h) 05/19/2024 2:00 AM 05/19/2024 3:00 AM 05/19/2024 4:00 AM 05/19/2024 5:00 AM 05/19/2024 6:00 AM 05/19/2024 7:00 AM 05/19/2024 8:00 AM Vitals Heart Rate 120 117 114 114 116 119 115 Temp 37.9 C 38.3 C Resp 26 26 31 27 23 26 20 O2 Delivery Method: Nasal cannula General: alert and oriented, ill appearing HEENT: normocephalic, atraumatic, NGT in place Eyes: no scleral icterus, normal conjunctiva Neck: supple, no trachea deviation Lungs: symmetric chest rise, non-labored breathing Heart: fast rate, well perfused Abdomen: soft, distended, tympanic, with rebound tenderness Extremities: no peripheral edema Skin: no rash, no cyanosis and warm to touch Psychiatric: oriented to person/place/time and normal mood/affect Intake/Output Intake/Output Summary (Last 24 hours) at 05/19/2024 0857 Last data filed at 05/19/2024 0800 Gross per 24 hour Intake 2995 ml Output 2720 ml Net 275 ml Results Labs in last 18 hours CBC WBC 14.70 (H) Hb 9.2 (L) Plt 629 (H) Hct 27.7 (L) ANC 10.82 (H) INR ??, PTT ??, Anti-Xa ?? BMP Na 142 Cl 115 (H) BUN 9 Glu 140 (H) K 3.6 Co2 17 (L) Cr 0.80 Ca 6.8 (L) iCa ?? Mg 2.0, Phos ?? Lactate ?? LFT AST 53 (H) AlkPhos 111 (H) T Prot 5.5 (L) ALK 23 Bili 1.1 Alb ?? D.Bili ?? Imaging No echocardiogram results found for the past 14 days No valid procedures specified. ASSESSMENT & PLAN Principal Problem: CAD, multiple vessel Active Problems: Anxiety and depression COPD (chronic obstructive pulmonary disease) (CMS/HCC) NSTEMI (non-ST elevated myocardial infarction) (CMS/HCC) GERD (gastroesophageal reflux disease) Leukocytosis Hyperlipidemia THOM (obstructive sleep apnea) S/P CABG x 4 Hypertension Hyperkalemia Cardiac volume overload Hypoglycemia Nausea with vomiting Acute blood loss anemia (ABLA) 53 yrs female who underwent 4v CABG on 05/06/[address] Austin. -ASA -NPO -mIVF -TPN -Zosyn and Micafungin -PPI -Appreciate GI and general surgery recs -continue ICU care Cardiothoracic Surgery 05/19/24 8:57 AM Cosigned by Sully Cronin MD at 05/24/2024 7:40 AM EDT Associated attestation - Sully Cronin MD - 05/24/2024 7:40 AM EDT I saw and evaluated the patient with the resident/fellow. I discussed the case with the resident/fellow and agree with the findings and plan as documented. * Progress Notes - Edson Mcclure DO - 05/19/2024 2:30 AM EDTAssociated Order(s): Critical Care Post-Procedure Diagnose(s): S/P CABG x 4 Critical Care Performed by: Edson Mcclure DO Authorized by: Edson Mcclure DO Critical care provider statement: Critical care time (minutes): 57 Critical care time was exclusive of: Separately billable procedures and treating other patients andteaching time Critical care was time spent personally by me on the following activities: Development of treatmentplan with patient or surrogate, ordering and performing treatments and interventions, ordering and review of laboratory studies, ordering and review of radiographic studies, evaluation of patient's response to treatment, examination of patient, obtaining history from patient or surrogate and discussions with consultants I assumed subsequent critical care for this patient from a provider in my division, on the same day: yes Comments: PICC placed Persistently febrile and tachycardic 05/19/24 Rere Hunter HPI Rere Hunter is a 53 y.o. female who presents with CAD, multiple vessel. If applicable, patient is s/p Procedure(s) and Anesthesia Type: * CABG, 2 OR MORE VESSELS - General. Patient is 13 Days Post-Op with Cardiothoracic Surgery. Past 24 hours: PM: Added tylenol suppository prn. Cdiff + comprehensive GI panel neg. One time dose IV pepcid. PICC obtained, TPN starting tmrw. Will give 2.5 haldol for anxiety. 20 IV lasix- increasing vascular ny on cxr AM: Upper GI showed no gastric leak/perforation. IR declined drain stating Collection is not well defined . Plan is to continue antibiotics, continue NG decompression, and rescan in 48 hours. PRN hydromorphone added for pain. VAT to place PICC, TPN likely 05/19. Edited by: Marybel Suarez, [employer]TER at 05/19/2024 0517 Lines/Drains/Tubes: Patient Lines/Drains/Airways Status Active Active LDAs Name Placement date Placement time Site Days PICC Double Lumen 05/19/24 Left Basilic vein 05/19/24 0050 Basilic vein less than 1 Peripheral IV 05/12/24 Anterior;Left Forearm 05/12/24 0030 Forearm 7 Peripheral IV 05/18/24 Anterior;Right;Upper Arm 05/18/24 0400 Arm 1 NG/OG [place] Sump 14 Fr Right nostril 05/11/24 2300 Right nostril 7 Urethral Catheter Temperature probe 05/17/24 1430 -- 1 Arterial Line 05/17/24 Right Radial 05/17/24 1400 Radial 1 GCS: [place] Coma Scale Score: 14 Review of Systems 14 point ROS reviewed and otherwise negative or unobtainable except as noted above or in HPI. Vital signs: Vitals: 05/19/24 0700 BP: Pulse: (!) 119 Resp: 26 Temp: SpO2: 96% Intake/Output Summary (Last 24 hours) at 05/19/2024 0814 Last data filed at 05/19/2024 0600 Gross per 24 hour Intake 2895 ml Output 2245 ml Net 650 ml Physical Exam: Sedation was held for the purposes of examination. Physical Exam Labs in last 18 hours: CBC WBC 14.70 (H) Hb 9.2 (L) Plt 629 (H) Hct 27.7 (L) ANC 10.82 (H) INR ??, PTT ??, Anti-Xa ?? BMP Na 142 Cl 115 (H) BUN 9 Glu 140 (H) K 3.6 Co2 17 (L) Cr 0.80 Ca 6.8 (L) iCa ?? Mg 2.0, Phos ?? Lactate ?? LFT AST 53 (H) AlkPhos 111 (H) T Prot 5.5 (L) ALK 23 Bili 1.1 Alb ?? D.Bili ?? Imaging as available: === 05/01/24 === XR CHEST 1 VIEW - Narrative - CLINICAL INDICATION: CABG post -op TECHNIQUE: XR CHEST 1 VIEW COMPARISON: Earlier same day. FINDINGS: Mildly increased patchy opacities bilaterally. Trace pleural effusions. Enlarged heart and mediastinal silhouette. NG tube is. - Impression - Worsening airspace disease. CRITICAL RESULT: No. COMMUNICATION: Per this written report. Drafted by Pb Yadav MD on 05/18/2024 8:16 AM Final report signed by Pb Yadav MD on 05/18/2024 8:17 AM Reviewed and agree with above. Assessment and Plan: This patient is critically ill. 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 DVT pro, remove CT 05/11 ASA/statin/BB Anxiety and depression Yes Overview Addendum 05/13/2024 12:37 PM by Christi Sherman APRN 05/07 Continue home bupropion XL 300 mg daily Continue home citalopram 40 mg daily Continue PRN hydroxyzine 25 mg q6 COPD (chronic obstructive pulmonary disease) ([facility]/HCC) Yes Overview Addendum 05/12/2024 12:27 PM by Christi Sherman APRN 05/07 Duo nebs q6 SPO2 goal >88% On 4LNC 05/08 on 2LNC 05/09 on 2LNC +40 lasix 05/12 ongoing 3L NSTEMI (non-ST elevated myocardial infarction) (CMS/HCC) Yes Overview Addendum 05/11/2024 10:54 AM by Miguel Downey MD Diagnosed at OSH with elevated troponins of 0.05 to 0.23 to 0.16 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, 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 Repeat troponins pending 05/07 POD 1 4V CABG 05/09 EKG ordered and reviewed no signs of ST changes 05/10 ST 105 3/28 ST 100-105 GERD (gastroesophageal reflux disease) Yes Overview Addendum 05/14/2024 2:06 PM by Cydney Luu MD Continue Protonix 40 mg daily 05/07 extubated, no on home PPI dc'd 05/08 pt denies any GERD symptoms 05/09 + PPI for reflux 05/10 docusate, metoclopramide, miralax, senna, simethicone, continue NG to low intermitted, CLD forpt comfort, passing gas 05/11 as above denies reflux today NG clamp trial 05/14 PPI per blue surgery rec for blood tinged NG output Leukocytosis Yes Overview Signed 05/13/2024 12:38 PM by Christi Sherman APRN trending Hyperlipidemia Yes THOM (obstructive sleep apnea) Yes Overview Addendum 05/09/2024 11:15 AM by Miguel Downey MD 05/07 pt declines home CPAP use 05/08 on 2lNC 05/09 96% on 2lNC S/P CABG x 4 Not Applicable Overview Addendum 05/12/2024 12:26 PM by Christi Sherman APRN 05/06 w/Reda 4 chest tubes (mediastinal x2, left pleural, right pleural) A&V wires SBP <140 Aspirin, statin, beta stacey as clinically appropriate 05/07 epi .03 weaning, holding beta block (epi .03) 05/09 off all gtts NSR continue ICU level of care per CT surg Hypertension Yes Overview Addendum 05/09/2024 10:56 AM by Reyna Mcdonald APRN Requiring nitroglycerin gtt upon arrival to ICU 05/07 off gtts, SBP within goal 05/09: increased metop to 50 BID Hyperkalemia No Overview Addendum 05/12/2024 12:28 PM by Christi Sherman APRN Intro op max 7.3 Received dextrose, insulin, calcium, lasix intra-op Now resolved, pt with hypokalemia requiring replacement Cardiac volume overload No Overview Addendum 05/18/2024 10:24 AM by Sidney Jackson MD Diuresis as clinically indicated Hypoglycemia No Overview Addendum 05/13/2024 12:40 PM by Christi Sherman APRN - continue to monitor, checking LFTs On d5 LR at 75 Nausea with vomiting No Overview Addendum 05/14/2024 1:59 PM by Cydney Luu MD - post Reglan/ Simethicone for gastric bubble - may need NG placement, continue to monitor 05/10 docusate, metoclopramide, miralax, senna, simethicone, continue NG to low intermitted, CLD forpt comfort, passing gas , + one time dose of compazine 05/11 KUB reviewed dilated seg of small bowel, NG clamp trial, BM 05/10 denies N/V today 05/12 worsening condition with leukocytosis, tachycardia, tachypnea, nausea and abd complaints- sentfor repeat Ct scan and discussed with surgery team 05/13 continued high NG output Acute blood loss anemia (ABLA) No Overview Signed 05/14/2024 2:01 PM by Cydney Luu MD Lab Results Component Value Date HGB 7.2 (L) 05/14/202405/14 iron studies sent, 1u pRBCs Edson Mcclure DO * Procedures - Sundeep Holt RN - 05/19/2024 12:50 AM EDTAssociated Order(s): Insert PICC line Insert PICC line Performed by: Sundeep Holt RN Authorized by: Maite Austin MD [place] Protocol: Verbal consent obtained?: Yes Written consent obtained?: Yes Risks and benefits: Risks, benefits and alternatives were discussed Consent given by: Patient and power of compliance attorney (Written Consent obtained by madalyn VAT/PICC RN from Patient's family/NOK and verified in Patient's chart. Signed 05/18/24 at 15:00.) Patient states understanding of procedure being performed: Yes Patient's understanding of procedure matches consent: Yes Procedure consent matches procedure scheduled: Yes Relevant documents present and verified: Yes Test results available and properly labeled: Yes Site marked: Yes Imaging studies available: Yes Patient identity confirmed: Verbally with patient, arm band and hospital- assigned identification number Time out: Immediately prior to the procedure a time out was called (TPN) Indications: Vascular access Local anesthetic: Lidocaine 1% without epinephrine (3 ml) Sedation: Patient sedated: No Preparation: Skin prepped with 2% chlorhexidine and skin prepped with alcohol Skin prep agent dried: Skin prep agent completely dried prior to procedure Sterile barriers: All five maximal sterile barriers used - gloves, gown, cap, mask and large sterile sheet Hand hygiene: Hand hygiene performed prior to catheter insertion Orientation: Left Location (Adult): Basilic vein (Largest vein, [id number] ratio 27%) Site selection rationale: RUE PIV and right radial arterial line. Patient position: Supine Catheter Lot #: [id number] Catheter contract project manager: [employer] Power PICC Provena Catheter placed: Double lumen Catheter size: 4 Fr Catheter trimmed length: 39 Catheter threaded length: 39 Vein placed in: SVC Catheter cm indwellin Catheter cm outside: 0 Placement confirmed by: Sherlock 3CG technology Pre-procedure: Landmarks identified Ultrasound guidance: Yes Sterile ultrasound techniques: Sterile gel and sterile probe covers were used Number of attempts: 1 Post-procedure: Adhesive securement device and sterile access caps placed on each lumen Dressing applied: CHG tegaderm Assessment: Blood return through all ports Patient tolerated the procedure well with no immediate complications.: Yes PICC kit educational material was given to the patient.: No (Placed in Patients chart.) Comments: VAT consult for PICC line for TPN. Madalyn VAT/PICC RN spoke with Sidney Jackson MD and MD stated team would like to proceed with PICC placement with blood cultures only negative for 24 hours. Consent obtained from Patient's family/NOK and verified in Patient's chart. Images of vein and Sherlock 3CG uploaded to PACS. Placement confirmed with Sherlock 3CG. Okay to use and order will be placed. Green alcohol caps placed on end of each lumen hub. [place] limb precautionarmband placed on left wrist for PICC precautions while PICC is in place (No sticks/BP's). VAT consult completed. * Progress Notes - Dieudonne Cramer MD - 05/18/2024 2:28 PM EDTAssociated Order(s): Critical Care Post-Procedure Diagnose(s): S/P CABG x 4 Critical Care Performed by: Dieudonne Cramer MD Authorized by: Dieudonne Cramer MD Critical care provider statement: Critical care time (minutes): 38 Critical care time was exclusive of: Separately billable procedures and treating other patients andteaching time Critical care was time spent personally by me on the following activities: Development of treatmentplan with patient or surrogate, ordering and performing treatments and interventions, discussions with consultants, ordering and review of laboratory studies, discussions with primary provider, ordering and review of radiographic studies, evaluation of patient's response to treatment and examination of patient Critical care statement: I saw and evaluated the patient with the resident/ fellow. I discussed thecase with the resident/ fellow and agree with the findings and plan as documented. 05/18/24 Rere Hunter HPI Rere Hunter is a 53 y.o. female who presents with CAD, multiple vessel. If applicable, patient is s/p Procedure(s) and Anesthesia Type: * CABG, 2 OR MORE VESSELS - General. Patient is 12 Days Post-Op with Cardiothoracic Surgery. Past 24 hours: PM: CT head unremarkable, CT chest and abdomen pelvis with contrast concerning for abscess versus spilled gastric contents due to gastric perforation in the setting of an enteric tube- blue surgery notified no acute intervention currently. Consider reaching out to GI for scope/patch. Adding Christi for fungal coverage. D/c PO meds in setting of gastric perf, restart when able AM: Upper GI showed no gastric leak/perforation. IR declined drain stating Collection is not well defined . Plan is to continue antibiotics, continue NG decompression, and rescan in 48 hours. PRN hydromorphone added for pain. VAT to place PICC, TPN likely 05/19. Edited by: iSdney Jackson MD at 05/18/2024 6580 Lines/Drains/Tubes: Patient Lines/Drains/Airways Status Active Active LDAs Name Placement date Placement time Site Days Peripheral IV 05/12/24 Anterior;Left Forearm 05/12/24 0030 Forearm 6 Peripheral IV 05/18/24 Anterior;Right;Upper Arm 05/18/24 0400 Arm less than 1 NG/OG [place] Sump 14 Fr Right nostril 05/11/24 2300 Right nostril 6 Urethral Catheter Temperature probe 05/17/24 1430 -- less than 1 Arterial Line 05/17/24 Right Radial 05/17/24 1400 Radial 1 GCS: [place] Coma Scale Score: 13 Review of Systems 14 point ROS reviewed and otherwise negative or unobtainable except as noted above or in HPI. Vital signs: Vitals: 05/18/24 1300 BP: Pulse: (!) 120 Resp: (!) 36 Temp: (!) 39.1 ??C (102.4 ??F) SpO2: 100% Intake/Output Summary (Last 24 hours) at 05/18/2024 1428 Last data filed at 05/18/2024 1300 Gross per 24 hour Intake 3611.83 ml Output 2760 ml Net 851.83 ml Physical Exam: Sedation was held for the purposes of examination. Physical Exam Constitutional: Appearance: She is ill-appearing. HENT: Head: Normocephalic. Right Ear: External ear normal. Left Ear: External ear normal. Mouth/Throat: Mouth: Mucous membranes are moist. Eyes: Extraocular Movements: Extraocular movements intact. Pupils: Pupils are equal, round, and reactive to light. Cardiovascular: Rate and Rhythm: Tachycardia present. Pulses: Normal pulses. Pulmonary: Effort: Pulmonary effort is normal. Abdominal: General: Abdomen is flat. Tenderness: There is abdominal tenderness. Skin: Capillary Refill: Capillary refill takes less than 2 seconds. Findings: Bruising present. Comments: Bilateral inner thigh bruising Neurological: Mental Status: She is disoriented. Labs in last 18 hours: CBC WBC 14.70 (H) Hb 9.6 (L) Plt 590 (H) Hct 29.0 (L) ANC 11.39 (H) INR ??, PTT ??, Anti-Xa ?? BMP Na 143 Cl 115 (H) BUN 13 Glu 112 (H) K 4.2 Co2 19 (L) Cr 0.77 Ca 7.5 (L) iCa 4.2 (L) Mg 2.3, Phos 3.0 Lactate 1.3 LFT AST 53 (H) AlkPhos 113 (H) T Prot 5.5 (L) ALK 24 Bili 1.1 Alb ?? D.Bili ?? Imaging as available: === 03/18/25 === XR CHEST 1 VIEW - Narrative - CLINICAL INDICATION: CABG post -op TECHNIQUE: XR CHEST 1 VIEW COMPARISON: Earlier same day. FINDINGS: Mildly increased patchy opacities bilaterally. Trace pleural effusions. Enlarged heart and mediastinal silhouette. NG tube is. - Impression - Worsening airspace disease. CRITICAL RESULT: No. COMMUNICATION: Per this written report. Drafted by Pb Yadav MD on 05/18/2024 8:16 AM Final report signed by Pb Yadav MD on 05/18/2024 8:17 AM Reviewed and agree with above. Assessment and Plan: This patient is critically ill. 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 DVT pro, remove CT 05/11 ASA/statin/BB Anxiety and depression Yes Overview Addendum 05/13/2024 12:37 PM by Christi Sherman APRN 05/07 Continue home bupropion XL 300 mg daily Continue home citalopram 40 mg daily Continue PRN hydroxyzine 25 mg q6 COPD (chronic obstructive pulmonary disease) ([facility]/HCC) Yes Overview Addendum 05/12/2024 12:27 PM by Christi Sherman APRN 05/07 Duo nebs q6 SPO2 goal >88% On 4LNC 05/08 on 2LNC 05/09 on 2LNC +40 lasix 05/12 ongoing 3L NSTEMI (non-ST elevated myocardial infarction) ([facility] [place]) Yes Overview Addendum 05/11/2024 10:54 AM by Miguel Downey MD Diagnosed at OSH with elevated troponins of 0.05 to 0.23 to 0.16 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, 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 Repeat troponins pending 05/07 POD 1 4V CABG 05/09 EKG ordered and reviewed no signs of ST changes 05/10 ST 105 05/11 ST 100-105 GERD (gastroesophageal reflux disease) Yes Overview Addendum 05/14/2024 2:06 PM by Cydney Luu MD Continue Protonix 40 mg daily 05/07 extubated, no on home PPI dc'd 05/08 pt denies any GERD symptoms 05/09 + PPI for reflux 05/10 docusate, metoclopramide, miralax, senna, simethicone, continue NG to low intermitted, CLD forpt comfort, passing gas 05/11 as above denies reflux today NG clamp trial 05/14 PPI per blue surgery rec for blood tinged NG output Leukocytosis Yes Overview Signed 05/13/2024 12:38 PM by Christi Sherman APRN trending Hyperlipidemia Yes THOM (obstructive sleep apnea) Yes Overview Addendum 05/09/2024 11:15 AM by Miguel Downey MD 05/07 pt declines home CPAP use 05/08 on 2lNC 05/09 96% on 2lNC S/P CABG x 4 Not Applicable Overview Addendum 05/12/2024 12:26 PM by Christi Sherman APRN 05/06 w/Reda 4 chest tubes (mediastinal x2, left pleural, right pleural) A&V wires SBP <140 Aspirin, statin, beta stacey as clinically appropriate 05/07 epi .03 weaning, holding beta block (epi .03) 05/09 off all gtts NSR continue ICU level of care per CT surg Hypertension Yes Overview Addendum 05/09/2024 10:56 AM by Reyna Mcdonald APRN Requiring nitroglycerin gtt upon arrival to ICU 05/07 off gtts, SBP within goal 05/09: increased metop to 50 BID Hyperkalemia No Overview Addendum 05/12/2024 12:28 PM by Christi Sherman APRN Intro op max 7.3 Received dextrose, insulin, calcium, lasix intra-op Now resolved, pt with hypokalemia requiring replacement Cardiac volume overload No Overview Addendum 05/18/2024 10:24 AM by Sidney Jackson MD Diuresis as clinically indicated Hypoglycemia No Overview Addendum 05/13/2024 12:40 PM by Christi Sherman APRN - continue to monitor, checking LFTs On d5 LR at 75 Nausea with vomiting No Overview Addendum 05/14/2024 1:59 PM by Cydney Luu MD - post Reglan/ Simethicone for gastric bubble - may need NG placement, continue to monitor 05/10 docusate, metoclopramide, miralax, senna, simethicone, continue NG to low intermitted, CLD forpt comfort, passing gas , + one time dose of compazine 05/11 KUB reviewed dilated seg of small bowel, NG clamp trial, BM 05/10 denies N/V today 05/12 worsening condition with leukocytosis, tachycardia, tachypnea, nausea and abd complaints- sentfor repeat Ct scan and discussed with surgery team 05/13 continued high NG output Acute blood loss anemia (ABLA) No Overview Signed 05/14/2024 2:01 PM by Cydney Luu MD Lab Results Component Value Date HGB 7.2 (L) 05/14/202405/14 iron studies sent, 1u pRBCs Sidney Jackson MD * Care Plan - Theresa Hairston RN - 05/18/2024 1:51 PM EDT Problem: Adult Inpatient Plan of Care Goal: Plan of Care Review Outcome: Ongoing, Progressing Goal: Patient-Specific Goal (Individualized) Outcome: Ongoing, Progressing Goal: Absence of Hospital-Acquired Illness or Injury Outcome: Ongoing, Progressing Goal: Optimal Comfort and Wellbeing Outcome: Ongoing, Progressing Goal: Readiness for Transition of Care Outcome: Ongoing, Progressing Problem: Infection Goal: Absence of Infection Signs and Symptoms Outcome: Ongoing, Progressing Problem: Mechanical Ventilation Invasive Goal: Mechanical Ventilation Liberation Outcome: Ongoing, Progressing Goal: Optimal Device Function Outcome: Ongoing, Progressing Goal: Absence of Device-Related Skin and Tissue Injury Outcome: Ongoing, Progressing * Consults - Rhona Abrams RN - 05/18/2024 1:39 PM EDT Vat spoke to Sidney Jackson MD. states team wishes to proceed with picc placement with blood cxs - 24 hours for TPN as soon as possible. Vat will proceed as time permits. MD aware of consent issues as well. * Consults - Cheri Mckay RD - 05/18/2024 1:37 PM EDT Adult Nutrition Evaluation Note Rere Hunter 53 y.o. female CSN: [id number] Room/Bed 216/216A Nutrition evaluation type: follow-up Reason for evaluation: Hospital course: 53 y.o. female presents for CABG evaluation. OR on 05/06. 05/16: NPO x 5 days d/t ileus. Trial of clamping NGT. SGE is following. Pt has been intermittently confused. 05/18: Patient transferred back to ICU yesterday given worsening abdominal exam, electrolyte abnormalities, and overall care requirements. Having fevers, tachycardia. General surgery and GI acutely involved for worsening bowel exam with CT findings concerning for possible gastric perforation. Past medical/ surgical history: Medical History[1] Surgical History[2] Social history: Additional comments: Minimal PO intake recently, diet advancing per protocol. 05/11: Pt reports appetite improving, trying to eat. Pt denied n/v/d/c, denied chewing/swallowing difficulty. Pt denied involuntary wt changes. No feeding tube present. Vitals and Basic Assessment: BP: (!) 66/17 Temp: (!) 38.9 ??C (102 ??F) Invasive Ventilator Initiated (ETT/Trach Only): Yes Oxygen Therapy: Supplemental oxygen O2 Delivery Method: Nasal cannula [place] Coma Scale Score: 13 [place] Scale Score: 16 Joshua/Cubbin Pressure Risk Score: 39 Most Recent BM Date: 05/17/24 GI Symptoms: Diarrhea Edema: Generalized Allergies: NKFA Medications: acetaminophen, 650 mg, Intravenous, Once aspirin, 150 mg, Rectal, Daily heparin (porcine), 5,000 Units, Subcutaneous, q8h micafungin, 100 mg, Intravenous, q24h pantoprazole, 40 mg, Intravenous, Daily piperacillin-tazobactam, 4.5 g, Intravenous, q6h Meds were reviewed: Yes Labs: Lab Results Component Value Date GLUCOSE 112 (H) 05/18/2024 CALCIUM 7.5 (L) 05/18/2024 NA 143 05/18/2024 K 4.2 05/18/2024 CO2 19 (L) 05/18/2024 CL 115 (H) 05/18/2024 BUN 13 05/18/2024 CREATININE 0.77 05/18/2024 PHOS 3.0 05/18/2024 MG 2.3 05/18/2024 HGBA1C 5.3 05/01/2024 Anthropometrics: Height: 154.9 cm (5' 0.98 ) Weight: (Unable to weigh. Bedscale not working) BMI (Calculated): 25.13 Weight Evaluation: Overweight (BMI 25-29.9) [place] Body Weight (kg): 47.7 Percent [place] Body Weight: 126 Adjusted Body Weight (kg): 50.9 Estimated Needs: Metabolic Cart Study Results: Current Nutrition Intake: Diet Order: NPO Diet Texture: (-) Adult Carbohydrate Restriction: (-) Fat Restriction: (-) Percent Meals Eaten (%): (-) Diet Experience and Nutrition History: Diet Education Provided: Will monitor Pertinent home medications: reviewed Gnosticist needs: Nutrition Focused Physical Exam: Physical exam performed on (date): 05/11 Temples (muscles): None Clavicle (muscle): None Shoulder (muscle): None Interosseous (muscle): None Thigh (muscle): None Calf (muscle): Mild Orbital (fat): None Triceps (fat): None Assessment of Malnutrition: Malnutrition Identified: No Nutrition Problem: Increased nutrient needs protein, calories related to s/p CABG as evidenced by increased metabolic demands of surgical wound healing. Status of Nutrition Diagnosis: Ongoing Inadequate energy intake related to ileus/possible gastric perforation as evidenced by NPO x 7 days Status of Nutrition Diagnosis: Ongoing Nutrition Interventions and Recommendations: - Consider TPN if anticipate continued need for NPO status. - Resume/advance diet per team discretion. - Closely monitor Phosphorus, K+, Magnesium levels every 8-12 hrs as nutrition is initiated (potential risk for refeeding syndrome). - MVI and thiamine supplementation (d/t potential risk for refeeding syndrome). Nutrition Monitoring and Goals: - Will monitor PO intake/EN infusion, weight, skin, labs, nutrition status - re-establish source of nutrition - monitor elytes - Pt will maintain body weight throughout hospital admission Acuity Level: [address], LD [1] Past Medical History: Diagnosis Date Anxiety COPD (chronic obstructive pulmonary disease) ([facility] [place]) 05/01/2024 Continue Duo nebs q6 SPO2 goal >88% Depression GERD (gastroesophageal reflux disease) 05/01/2024 Continue Protonix 40 mg daily On mechanically assisted ventilation ([facility] [place]) 05/06/2024 Arrived to ICU intubated 05/07 extubated to 4LNC 05/08 resolved Tobacco use 05/01/2024 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 Complicates all aspects of care and recovery Tremor 05/01/2024 Continue home primidone 50 mg BID [2] Past Surgical History: Procedure Laterality Date ABDOMINAL ADHESION SURGERY SECTION, CLASSIC CHOLECYSTECTOMY CORONARY ARTERY BYPASS GRAFT 05/06/2024 Coronary artery bypass grafting x4 with CHOWDARY to LAD as a free graft, reverse saphenous vein graft sequential to ramus intermedius artery then to obtuse marginal artery 1, reverse saphenous vein graftto PDA.(Reda) HAND SURGERY Right Tendon repair SHOULDER SURGERY * Progress Notes - Sundeep Newsome MD - 05/18/2024 1:11 PM EDT Images from the original note were not included. CARDIOTHORACIC SURGERY PROGRESS NOTE SUBJECTIVE Acute Events/Last 24 Hrs: Patient transferred back to ICU yesterday given worsening abdominal exam,electrolyte abnormalities, and overall care requirements. Having fevers, tachycardia. General surgery and GI acutely involved for worsening bowel exam with CT findings concerning for possible gastricperforation. OBJECTIVE All laboratory data, images, tracings, and vital sign data for past 24 hours are personally reviewed unless otherwise noted. Physical Exam VITALS (last 24h) 05/18/2024 6:45 AM 05/18/2024 7:00 AM 05/18/2024 8:00 AM 05/18/2024 9:00 AM 05/18/2024 10:00 AM 05/18/2024 11:00 AM 05/18/2024 12:00 PM Vitals Heart Rate 114 112 113 115 119 118 118 Temp 38.9 C 38.8 C 39.0 C 39.0 C 39.0 C 39.0 C 38.9 C Resp 36 33 35 19 24 31 19 O2 Delivery Method: Nasal cannula General: alert and oriented, ill appearing HEENT: normocephalic, atraumatic, NGT in place Eyes: no scleral icterus, normal conjunctiva Neck: supple, no trachea deviation Lungs: symmetric chest rise, non-labored breathing Heart: fast rate, well perfused Abdomen: soft, mildly distended, moderately tender to palpation Extremities: no peripheral edema Skin: no rash, no cyanosis and warm to touch Psychiatric: oriented to person/place/time and normal mood/affect Intake/Output Intake/Output Summary (Last 24 hours) at 05/18/2024 1311 Last data filed at 05/18/2024 1200 Gross per 24 hour Intake 3511.83 ml Output 2760 ml Net 751.83 ml Results Labs in last 18 hours CBC WBC 14.70 (H) Hb 9.6 (L) Plt 590 (H) Hct 29.0 (L) ANC 11.39 (H) INR ??, PTT ??, Anti-Xa ?? BMP Na 143 Cl 115 (H) BUN 13 Glu 112 (H) K 4.2 Co2 19 (L) Cr 0.77 Ca 7.5 (L) iCa 4.2 (L) Mg 2.3, Phos 3.0 Lactate 1.3 LFT AST 53 (H) AlkPhos 113 (H) T Prot 5.5 (L) ALK 24 Bili 1.1 Alb ?? D.Bili ?? Imaging No echocardiogram results found for the past 14 days No valid procedures specified. ASSESSMENT & PLAN Principal Problem: CAD, multiple vessel Active Problems: Anxiety and depression COPD (chronic obstructive pulmonary disease) (CMS/HCC) NSTEMI (non-ST elevated myocardial infarction) (CMS/HCC) GERD (gastroesophageal reflux disease) Leukocytosis Hyperlipidemia THOM (obstructive sleep apnea) S/P CABG x 4 Hypertension Hyperkalemia Cardiac volume overload Hypoglycemia Nausea with vomiting Acute blood loss anemia (ABLA) 53 yrs female who underwent 4v CABG on 05/06/[address] Austin. -ASA, statin, BB -NPO -mIVF -Will need TPN -PPI -Appreciate GI and general surgery recs -continue ICU care Cardiothoracic Surgery 05/18/24 1:11 PM Cosigned by Maite Austin MD at 05/18/2024 2:18 PM EDT Associated attestation - Maite Austin MD - 05/18/2024 2:18 PM EDT I saw and evaluated the patient with the resident/fellow. I discussed the case with the resident/fellow and agree with the findings and plan as documented. * Significant Event - Fito Saeed - 05/18/2024 9:03 AM EDTAssociated Order(s): Inpatient Consult to Interventional Radiology Inpatient Consult to Interventional Radiology Consult performed by: Fito Saeed PA Consult ordered by: Maite Austin MD Reason for consult: drain placement CT imaging reviewed with IR attending Dr. Dale. Collection is not well defined. Agree with surgery for endoscopic evaluation to evaluate for gastric perforation. Fito Saeed PA-C Vascular & Interventional Radiology * Clinician Note - Annika Shi - 05/18/2024 8:40 AM EDT Occupational Therapy Attempt Patient Name: Rere Hunter Today's Date: 05/18/2024 Patient was attempted to be seen by occupational therapy 05/18/2024 for OT Treatment however RN deferred session (patient currently confused and febrile; RN deferred until afternoon). Occupational therapy team will follow-up when medically appropriate. Written by Annika Shi on 05/18/24 at 8:43 AM. * Clinician Note - Duane Amor - 05/18/2024 8:39 AM EDT Physical Therapy Attempt Patient Name: Rere Hunter Today's Date: 05/18/2024 Patient was attempted to be seen by physical therapy 05/18/2024 for PT Treatment however RN deferred session (patient currently confused and febrile; deferred until afternoon). Physical therapy team will follow-up when medically appropriate. Written by Duane Amor on 05/18/24 at 8:39 AM. * Consults - Pb Kinsey MD - 05/18/2024 8:19 AM EDTAssociated Order(s): Inpatient consult to gastroenterology Inpatient consult to gastroenterology Consult performed by: Pb Kinsey MD Consult ordered by: Maite Austin MD Inpatient Gastroenterology, Hepatology and Nutrition Initial Consultation Note: Patient: Rere Hunter Date of : 1970 [facility] Referring provider: Maite Austin MD Reason for consultation: gastric perforation Subjective: History of present illness: Ms. Rere Hunter is a 53 y.o. year old female admitted on 05/01/2024 for chief complaint of CAD, multiple vessel [I25.10]. The inpatient gastroenterology, hepatology and nutrition team was askedto see her in consultation for gastric perforation. She has a past medical history significant for CAD s/p 4v CABG on 05/06/24, HTN, COPD, GERD. Patient is admitted for CAD s/p CABG on 05/06. Yesterday she developed worsening abdominal pain and fever. CT was obtained and showed concern for intra-abdominal fluid adjacent to the stomach and possible perforation. She continues to have LUQ and LLQ abdominal pain with what she describes as the worst acid reflux she has ever experienced. Denies any vomiting, diarrhea, melena or hematochezia. Currently is tearful because her son recently and she is worried about missing the wake. Review of Systems: General: +fever. No chills Ears: No hearing loss, tinnitus Eyes: No blurred vision, double vision, or scleral icterus Nose: No epistaxis, nasal congestion Throat: No sore throat CV: No chest pain Resp: +SOA GI: + abdominal pain, acid reflux. No nausea, vomiting, constipation, diarrhea, or GI bleeding. : No change in urine frequency and no dysuria. Skin: No rashes, bruising or jaundice Msk/Ext: No arthralgias. Neuro: No headaches, dizziness. Medical History[1] Surgical History[2] Family History[3] Family history reviewed and non-contributory Social History[4] Allergies[5] Current Medications[6] Objective: Temp: [37.1 ??C (98.8 ??F)-39.4 ??C (102.9 ??F)] 38.8 ??C (101.8 ??F) Heart Rate: [89-116] 112 Resp: [16-40] 33 BP: (66-144)/(17-85) 66/17 Arterial Line BP: (102-140)/(50-68) 127/59 Weight: 61.1 kg (134 lb 12.8 oz) Body mass index is 25.13 kg/m??. Physical Examination: General Appearance: Awake, alert, oriented x 3 Head: Normocephalic, atraumatic Eyes: no scleral icterus, EOMI. Neck: Neck supple, no adenopathy. Lungs: increased work of breathing Heart: Regular rate and rhythm Abdomen: Abdomen soft, LUQ, LLQ TTP. NG in place to LWS Extremities: No lower extremity edema. Neurologic: Mental status intact. No gross neurologic deficits. Laboratory: CBC WBC 14.70 (H) Hb 9.6 (L) Plt 590 (H) Hct 29.0 (L) INR 1.7 (H) PTT 41 (H) BMP Na 143 Cl 115 (H) BUN 13 Glu 112 (H) K 4.2 Co2 19 (L) Cr 0.77 Mg 2.3 Phos 3.0 LFT AST 53 (H) AlkPhos 113 (H) T Prot 5.5 (L) ALK 24 T Bili 1.1 Alb ?? Imaging: CT Abdomen Pelvis w IV Contrast Result Date: 05/18/2024 Impression: * Malpositioned enteric tube with the side port above the esophageal hiatus. * Status post median sternotomy with fluid density in the anterior mediastinum which extends to the descendingaorta. This fluid is likely postsurgical in nature; however, aortic inflammation could have a similar appearance. * New gas and fluid collection along the gastric fundus which extends to the splenic flexure of the transverse colon measuring up to 5.4 cm. Differential includes an abscess versus spilled gastric contents due to gastric perforation in the setting of an enteric tube. * Peribronchovascular nodular groundglass consolidation consistent with pneumonia. * Trace right and small left pleural effusions. * Liquid stool in the colon. Assessment and Plan: Ms. Rere Hunter is a 53 y.o. year old female admitted on 05/01/2024 for chief complaint of CAD, multiple vessel [I25.10]. The inpatient gastroenterology, hepatology and nutrition team was askedto see her in consultation for gastric perforation. She has a past medical history significant for CAD s/p 4v CABG on 05/06/24, HTN, COPD, GERD. #concern for gastric perforation #s/p 4v CABG - CT w/ 5.4cm fluid collection along gastric fundus extending to splenic flexure and transverse colon - LLQ and LUQ tenderness on exam - WBC trending down over last week - started on zosyn by primary - Blue surgery consulted RECOMMENDATIONS: - agree with Blue surgery in obtaining upper GI study to better define presence of perforation - ongoing discussion with Blue and primary - would recommend against endoscopic closure (if perforation is present) prior to placement of drain, as this would lead to high risk for infection in closed off intra-abdominal fluid collection - continue antibiotics per primary Thank you for the opportunity to participate in this patient's care! Will continue to follow along with you. Patient seen by and discussed with Dr. Marino, gastroenterology, hepatology and nutrition attending physician. 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 [4] Social History Tobacco Use Smoking status: Every Day Current packs/day: 0.50 Types: Cigarettes Smokeless tobacco: Never Vaping Use Vaping status: Never Used Substance Use Topics Alcohol use: Not Currently Drug use: Not Currently [5] Allergies Allergen Reactions Latex Other - please document in the comment field Oxycodone Nausea [6] Current Facility-Administered Medications: aspirin chewable tablet 81 mg, 81 mg, Rectal, Daily, Marybel Suarez, AUTOMOTIVE PORTER benzocaine-menthol (Chloraseptic) 6-10 MG lozenge 1 lozenge, 1 lozenge, Mouth/Throat, q4h PRN, Dave Baird, DO, 1 lozenge at 05/17/24 1624 dextrose 5 % and sodium chloride 0.45 % with KCl 20 mEq/L infusion, 100 mL/hr, Intravenous, Continuous, Marybel Suarez APRN, Last Rate: 100 mL/hr at 05/18/24 0600, 100 mL/hr at 05/18/24 0600 glucose (Glutose) 40 % oral gel 15 grams of glucose, 15 grams of glucose, Sublingual, q15 min PRN OR dextrose 50 % solution 12.5 g, 12.5 g, Intravenous, q15 min PRN OR glucagon (human recombinant) injection 1 mg, 1 mg, Intramuscular, q15 min PRN, Marybel Suarez, AUTOMOTIVE PORTER heparin (porcine) injection 5,000 Units, 5,000 Units, Subcutaneous, q8h, Sundeep Newsome MD, 5,000 Units at 05/18/24 0343 ipratropium-albuterol (Duo-Neb) 0.5-2.5 mg/3 mL nebulizer solution 3 mL, 3 mL, Nebulization, q6h PRN, Trinity Yousif, AUTOMOTIVE PORTER, 3 mL at 05/17/24 1551 micafungin (Mycamine) 100 mg in sodium chloride 0.9 % 100 mL IVPB, 100 mg, Intravenous, q24h, Marybel Suarez, AUTOMOTIVE PORTER, 100 mg at 05/18/24 0643 nicotine (Nicoderm CQ) 14 MG/24HR patch 1 patch, 1 patch, Transdermal, Daily PRN, Arpan Hull MD nicotine polacrilex (Commit) lozenge 2 mg, 2 mg, Mouth/Throat, q2h PRN, Abran Hull MD nystatin (Mycostatin) [id number] UNIT/ML suspension 400,000 Units, 4 mL, Swish & Swallow, 4x daily,Cydney Luu MD, 400,000 Units at 05/17/24 2100 pantoprazole (Protonix) injection 40 mg, 40 mg, Intravenous, Daily, Trinity Yousif AUTOMOTIVE PORTER, 40 mg at 05/17/24 1031 phenol (Chloraseptic) 1.4 % mouth/throat spray 1 spray, 1 spray, Mouth/Throat, q2h PRN, Sidney Jackson MD piperacillin-tazobactam (Zosyn) 4.5 g in sodium chloride 0.9% 100 mL IVPB (vial adapter required), 4.5 g, Intravenous, q6h, Dieudonne Cramer MD, Last Rate: 36.7 mL/hr at 05/18/24 0401, 4.5 g at 05/18/24 0401 [DISCONTINUED] promethazine (Phenergan) tablet 12.5 mg, 12.5 mg, Nasogastric, q6h PRN, 12.5 mg at 05/17/24 2141 OR [DISCONTINUED] promethazine (Phenergan) 6.25 MG/5ML solution 12.5 mg, 12.5 mg, Nasogastric, q6h PRN, 12.5 mg at 05/16/24 0608 OR promethazine (Phenergan) suppository 25 mg, 25 mg, Rectal, q6h PRN, Trinity Yousif APRN Cosigned by Ivan Marino MD at 05/18/2024 10:18 AM EDT Associated attestation - Ivan Marino MD - 05/18/2024 10:18 AM EDT I saw and evaluated the patient. I discussed the case with the resident/fellow and agree with the findings and plan as documented. * Progress Notes - Iman Massey MD - 05/18/2024 7:31 AM EDT Surgical ICU Daily Progress Note 05/18/24 Rere Hnuter HPI 53F with history of HTN, HLD, COPD, GERD, tobacco use, and CAD s/p 4v CABG on 05/06. SGE consulted for post-operative ileus. Interval: febrile. RLQ abdominal pain. CT showed intraabdominal fluid adjacent to stomach concerning for possible perforation. Edited by: Iman Massey MD at 05/18/2024 0742 Relevant review of systems was obtained as able and is negative unless stated above in HPI. Vital signs: Visit Vitals BP (!) 66/17 Pulse (!) 112 Temp (!) 38.8 ??C (101.8 ??F) (Bladder) Resp (!) 33 Ht 1.549 m (5' 0.98 ) Wt 60.3 kg (132 lb 15 oz) SpO2 99% BMI 25.13 kg/m?? Smoking Status Every Day BSA 1.61 m?? Intake/Output Summary (Last 24 hours) at 05/18/2024 0743 Last data filed at 05/18/2024 0630 Gross per 24 hour Intake 2811.83 ml Output 2300 ml Net 511.83 ml Physical Exam: Physical Exam Constitutional: Appearance: She is ill-appearing. HENT: Head: Normocephalic. Nose: Comments: NG Cardiovascular: Rate and Rhythm: Tachycardia present. Pulmonary: Effort: No respiratory distress. Abdominal: Tenderness: There is abdominal tenderness (RLQ). Skin: Comments: Left groin and inner thigh with firm hematoma Neurological: Comments: Oriented to self and time Lines/Drains/Tubes: Patient Lines/Drains/Airways Status Active Airway None O2 Delivery Method: Nasal cannula Output by Drain (mL) 05/16/24 07 - 05/16/24 18505/16/24 190 - 05/17/24 0659 05/17/24 07 - 05/17/24 1859 05/17/24 190 - 05/18/24 0659 05/18/24 07 - 05/18/24 0743 Requested LDAs do not have output data documented. Labs in last 18 hours: CBC WBC 14.70 (H) Hb 9.6 (L) Plt 590 (H) Hct 29.0 (L) ANC 11.39 (H) INR 1.7 (H), PTT 41 (H), Anti-Xa ?? BMP Na 143 Cl 115 (H) BUN 13 Glu 112 (H) K 4.2 Co2 19 (L) Cr 0.77 Ca 7.5 (L) iCa 4.2 (L) Mg 2.3, Phos 3.0 Lactate 1.3 LFT AST 53 (H) AlkPhos 113 (H) T Prot 5.5 (L) ALK 24 Bili 1.1 Alb ?? D.Bili ?? Lab Trends: H/H Results from last 7 days Lab Units 05/18/24 0020 05/17/24 1813 05/17/24 1508 HEMOGLOBIN g/dL 9.6* 9.7* 10.3* HEMATOCRIT % 29.0* 29.7* 31.9* INR Results from last 7 days Lab Units 05/17/24 1508 INR 1.7* Cr Results from last 7 days Lab Units 05/18/24 0020 05/17/24 1508 05/17/24 1023 CREATININE mg/dL 0.77 0.75 0.79 0.77 Radiology: I have personally reviewed and interpreted the most recent CT AP and remarkable for fluid adjacent to stomach concerning for small upper GI perforation. Medications reviewed. Vital signs reviewed. Labs reviewed. Radiography reviewed. 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 DVT pro, remove CT 05/11 ASA/statin/BB Anxiety and depression Yes Overview Addendum 05/13/2024 12:37 PM by Christi Sherman APRN 05/07 Continue home bupropion XL 300 mg daily Continue home citalopram 40 mg daily Continue PRN hydroxyzine 25 mg q6 COPD (chronic obstructive pulmonary disease) (CMS/HCC) Yes Overview Addendum 05/12/2024 12:27 PM by Christi Sherman APRN 05/07 Duo nebs q6 SPO2 goal >88% On 4LNC 05/08 on 2LNC 05/09 on 2LNC +40 lasix 05/12 ongoing 3L NSTEMI (non-ST elevated myocardial infarction) (CMS/[facility]) Yes Overview Addendum 05/11/2024 10:54 AM by Miguel Downey MD Diagnosed at OSH with elevated troponins of 0.05 to 0.23 to 0.16 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, 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 Repeat troponins pending 05/07 POD 1 4V CABG 05/09 EKG ordered and reviewed no signs of ST changes 05/10 ST 105 05/11 ST 100-105 GERD (gastroesophageal reflux disease) Yes Overview Addendum 05/14/2024 2:06 PM by Cydney Luu MD Continue Protonix 40 mg daily 05/07 extubated, no on home PPI dc'd 05/08 pt denies any GERD symptoms 05/09 + PPI for reflux 05/10 docusate, metoclopramide, miralax, senna, simethicone, continue NG to low intermitted, CLD forpt comfort, passing gas 05/11 as above denies reflux today NG clamp trial 05/14 PPI per blue surgery rec for blood tinged NG output Leukocytosis Yes Overview Signed 05/13/2024 12:38 PM by Christi Sherman APRN trending Hyperlipidemia Yes THOM (obstructive sleep apnea) Yes Overview Addendum 05/09/2024 11:15 AM by Miguel Downey MD 05/07 pt declines home CPAP use 05/08 on 2lNC 05/09 96% on 2lNC S/P CABG x 4 Not Applicable Overview Addendum 05/12/2024 12:26 PM by Christi Sherman APRN 05/06 w/Reda 4 chest tubes (mediastinal x2, left pleural, right pleural) A&V wires SBP <140 Aspirin, statin, beta stacey as clinically appropriate 05/07 epi .03 weaning, holding beta block (epi .03) 05/09 off all gtts NSR continue ICU level of care per CT surg Hypertension Yes Overview Addendum 05/09/2024 10:56 AM by Reyna Mcdonald APRN Requiring nitroglycerin gtt upon arrival to ICU 05/07 off gtts, SBP within goal 05/09: increased metop to 50 BID Hyperkalemia No Overview Addendum 05/12/2024 12:28 PM by Christi Sherman APRN Intro op max 7.3 Received dextrose, insulin, calcium, lasix intra-op Now resolved, pt with hypokalemia requiring replacement Cardiac volume overload No Overview Addendum 05/11/2024 10:55 AM by Miguel Downey MD Diuresis as clinically indicated 05/[address] surg 05/08 +20 lasix 05/09 + [address] surg 05/10 + 40 lasix 05/11 40IV lasix Hypoglycemia No Overview Addendum 05/13/2024 12:40 PM by Christi Sherman APRN - continue to monitor, checking LFTs On d5 LR at 75 Nausea with vomiting No Overview Addendum 05/14/2024 1:59 PM by Cydney Luu MD - post Reglan/ Simethicone for gastric bubble - may need NG placement, continue to monitor 05/10 docusate, metoclopramide, miralax, senna, simethicone, continue NG to low intermitted, CLD forpt comfort, passing gas , + one time dose of compazine 05/11 KUB reviewed dilated seg of small bowel, NG clamp trial, BM 05/10 denies N/V today 05/12 worsening condition with leukocytosis, tachycardia, tachypnea, nausea and abd complaints- sentfor repeat Ct scan and discussed with surgery team 05/13 continued high NG output Acute blood loss anemia (ABLA) No Overview Signed 05/14/2024 2:01 PM by Cydney Luu MD Lab Results Component Value Date HGB 7.2 (L) 05/14/202405/14 iron studies sent, 1u pRBCs To Do: - recommend GI consult for EGD for small possible upper GI perforation - want to see if fluid can be drained first - UGI completed and no leak from stomach - would continue antibiotics, NGT drainage - repeat CT in 48 hours unless pt condition changes to evaluate for increase in size - PPI - SGE will continue to follow Edited by: Tere Snow MD at 05/18/2024 1505 Iman Massey MD Procedures Cosigned by Tere Snow MD at 05/18/2024 3:06 PM EDT Associated attestation - Tere Snow MD - 05/18/2024 3:06 PM EDT I saw and evaluated the patient with the resident/fellow. I discussed the case with the resident/fellow and agree with the findings and plan as documented. Tere Snow MD, FACS sound printer Trauma Acute Care Surgery * Significant Event - Vicky Arciniega MD - 05/18/2024 4:50 AM EDT Paged by primary team to review CTAP. Imaging is concerning for focal gastric perforation with [id number] abscess. Patient has been febrile for several days and remains tachycardic HR 100s. Started on zosyn on 05/17. She endorses upper abdominal pain. Patient is confused, so difficult to obtain accuratehistory. On exam, patients abdomen is soft, TTP in LUQ and RUQ but no guarding or peritonitis. Unclear etiology for gastric perforation at this time. Recommendations: - Start antifungals - Continue Zosyn - Consultation to GI for possible endoscopic management of gastric perforation - NGT to lws - NPO Vicky Arciniega MD General Surgery PGY2 Pager: [phone] * H&P - Dieudonne Cramer MD - 05/17/2024 4:40 PM EDTAssociated Order(s): Critical Care Post-Procedure Diagnose(s): S/P CABG x 4 Critical Care Performed by: Dieudonne Cramer MD Authorized by: Dieudonne Cramer MD Critical care provider statement: Critical care time (minutes): 38 Critical care time was exclusive of: Separately billable procedures and treating other patients andteaching time Critical care was time spent personally by me on the following activities: Development of treatmentplan with patient or surrogate, ordering and performing treatments and interventions, discussions with consultants, ordering and review of laboratory studies, discussions with primary provider, ordering and review of radiographic studies, evaluation of patient's response to treatment and examination of patient Critical care statement: I saw and evaluated the patient with the resident/ fellow. I discussed thecase with the resident/ fellow and agree with the findings and plan as documented. 05/17/24 Rere Hunter Consulted for critical care management by Cardiothoracic Surgery. HPI Rere Hunter is a 53 y.o. female who presents with CAD, multiple vessel s/p Procedure(s) and Anesthesia Type: * CABG, 2 OR MORE VESSELS - General. Patient is 11 Days Post-Op. Rere Hunter is a 53 y.o. female with PMHx of CAD, HTN, COPD, GERD, tremor, anxiety, depression, and tobacco use, s/p 4vCABG with Dr. Austin on 05/06/24. Patient downgraded to progressive floor on 05/15. Returns to ICU 05/17 after progressive signs of sepsis. Patient is febrile with Tmax of 102.6, rising leukocytosis (WBC 13.08), and CRP 225. Patient is showing signs of delirium/confusion. Trauma surgery has been evaluating patient since 05/12 for concern of ileus. Trauma attending saw patient at bedside, states no need for surgical exploration but recommends possible re-imaging with CT scan abdomen and pelvis with IV contrast if she worsens. Patienthas been having minimal NGT output. Blood cultures, respiratory culture, viral respiratory pcr, Beta glucan, UA pending. Nystatin rinseand Zosyn started. Arterial line and de los santos placed. Received 1 unit pRBC this am. Resuscitating gently, 250ml Plasmalyte bolus given. Patient hemodynamically stable. Airway view (if available) was: grade IIa - partial view of glottis Lines/Drains/Tubes: . Active . Name Placement date Placement time Site Days Peripheral IV 05/12/24 Anterior;Left Forearm 05/12/24 0030 Forearm 5 Peripheral IV 05/12/24 Anterior;Left;Proximal Forearm 05/12/24 0840 Forearm 5 NG/OG [place] Sump 14 Fr Right nostril 05/11/24 2300 Right nostril 5 Female External Urinary Catheter 05/16/24 0500 05/16/24 0500 -- 1 Last antibiotic: Patient recently received an antibiotic (last 12 hours) Date/Time Action Medication Dose Rate 05/17/24 1526 New Bag piperacillin-tazobactam (Zosyn) 4.5 g in sodium chloride 0.9% 100 mL IVPB (vial adapter required) 4.5 g 36.7 mL/hr Per the patient questionnaire: Patient answers are not available for this visit. Past Medical History: Active Ambulatory Problems Diagnosis Date Noted No Active Ambulatory Problems Resolved Ambulatory Problems Diagnosis Date Noted No Resolved Ambulatory Problems Past Medical History: Diagnosis Date Anxiety COPD (chronic obstructive pulmonary disease) ([facility]) 05/01/2024 Depression GERD (gastroesophageal reflux disease) 05/01/2024 On mechanically assisted ventilation ([facility]) 05/06/2024 Tobacco use 05/01/2024 Tremor 05/01/2024 Past Surgical History: Surgical History[1] Home Medications: Prior to Admission medications Medication Sig Start Date End Date Taking? Authorizing Provider buPROPion XL (Wellbutrin XL) 300 MG 24 hr tablet take 1 tablet by mouth every 24 hours 04/20/24 Yes Jaden Correa MD citalopram (CeleXA) 40 MG tablet Take 1 tablet (40 mg) by mouth. 12/30/22 Yes Jaden Correa MD Combivent Respimat 20-100 MCG/ACT inhaler 03/07/23 Yes Jaden Correa MD fluticasone (Flonase) 50 MCG/ACT nasal spray Administer 2 sprays into each nostril daily as needed.12/24/23 Yes Jaden Correa MD hydrOXYzine HCl (Atarax) 10 MG tablet Take 1 tablet (10 mg) by mouth every 8 hours as needed. Yes Jaden Correa MD loratadine (Claritin) 10 MG tablet Take 1 tablet (10 mg) by mouth daily. Yes Jaden Correa MD primidone (Mysoline) 50 MG tablet Take 1 tablet (50 mg) by mouth every 12 (twelve) hours. Yes Jaden Correa MD propranolol (Inderal) 20 MG tablet Take 1 tablet (20 mg) by mouth in the morning and 1 tablet (20 mg) before bedtime. 01/17/23 Yes Jaden Correa MD Social History: Pt has reports that she has been smoking cigarettes. She has never used smokeless tobacco. She reports that she does not currently use alcohol. She reports that she does not currently use drugs. (details as available below) Social History Substance and Sexual Activity Alcohol Use Not Currently Social History Substance and Sexual Activity Drug Use Not Currently Tobacco Use History[2] Reviewed and otherwise non-contributory. Family History: Family History[3] Reviewed and otherwise non-contributory. Allergies: Allergies[4] GCS: Jaida Coma Scale Score: 14 Review of Systems 14 point ROS reviewed and otherwise negative or unobtainable except as noted above or in HPI. Vital signs: Vitals: 05/17/24 1551 BP: Pulse: 102 Resp: 26 Temp: SpO2: 98% Intake/Output Summary (Last 24 hours) at 05/17/2024 1640 Last data filed at 05/17/2024 1445 Gross per 24 hour Intake 909.17 ml Output 200 ml Net 709.17 ml Physical Exam: Sedation was held for the purposes of examination. Physical Exam Constitutional: Appearance: She is ill-appearing. HENT: Head: Normocephalic. Right Ear: External ear normal. Left Ear: External ear normal. Mouth/Throat: Mouth: Mucous membranes are dry. Eyes: Extraocular Movements: Extraocular movements intact. Pupils: Pupils are equal, round, and reactive to light. Cardiovascular: Rate and Rhythm: Regular rhythm. Tachycardia present. Pulses: Normal pulses. Pulmonary: Effort: Pulmonary effort is normal. Abdominal: General: Abdomen is flat. Palpations: Abdomen is soft. Musculoskeletal: Cervical back: Normal range of motion. Skin: Findings: Bruising present. Comments: Bilateral medial thighs show significant bruising Neurological: Mental Status: She is disoriented. Labs in last 18 hours: CBC WBC 13.08 (H) Hb 10.3 (L) Plt 615 (H) Hct 31.9 (L) ANC 12.68 (H) INR 1.7 (H), PTT 41 (H), Anti-Xa ?? BMP Na 146 (H) Cl 115 (H) BUN 14 Glu 68 (L) K 4.1 Co2 17 (L) Cr 0.75 Ca 7.4 (L) iCa 4.2 (L) Mg 1.8 (L), Phos 3.5 Lactate 1.3 LFT AST 83 (H) AlkPhos 127 (H) T Prot 6.1 (L) ALK 37 (H) Bili 0.7 Alb ?? D.Bili ?? Imaging as available: === 05/01/24 === XR ABDOMEN 1 VIEW - Narrative - CLINICAL INDICATION: ileus TECHNIQUE: XR ABDOMEN 1 VIEW COMPARISON: Radiograph 05/16/2024 CT 05/12/2024. FINDINGS: Esophagogastric tube terminates in the proximal stomach. Prior sternotomy. Cholecystectomy clips. Moderate diffuse gas within mildly dilated and nondilated colon.. Moderate gas within nondilated small bowel. No significant change in appearance of the colon. There is now slightly increased gas within nondilated small bowel. No pneumoperitoneum or pneumatosis. - Impression - Slightly increased gas within nondilated small bowel. CRITICAL RESULT: No. COMMUNICATION: Per this written report. Preliminary report signed by Rashi Johnson DO on 05/17/2024 9:17 AM By electronically signing this report, I, the attending physician, attest that I have personally reviewed the images/data for the above examination(s) and agree with the final edited report. Drafted by Rashi Johnson DO on 05/17/2024 9:14 AM Final report signed by Gurdeep Adam MD on 05/17/2024 9:39 AM Reviewed and agree with above. Assessment and Plan: This patient is critically ill. 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 DVT pro, remove CT 05/11 ASA/statin/BB Anxiety and depression Yes Overview Addendum 05/13/2024 12:37 PM by Christi Sherman APRN 05/07 Continue home bupropion XL 300 mg daily Continue home citalopram 40 mg daily Continue PRN hydroxyzine 25 mg q6 COPD (chronic obstructive pulmonary disease) ([facility]/HCC) Yes Overview Addendum 05/12/2024 12:27 PM by Christi Sherman APRN 05/07 Duo nebs q6 SPO2 goal >88% On 4LNC 05/08 on 2LNC 05/09 on 2LNC +40 lasix 05/12 ongoing 3L NSTEMI (non-ST elevated myocardial infarction) (CMS/HCC) Yes Overview Addendum 05/11/2024 10:54 AM by Miguel Downey MD Diagnosed at OSH with elevated troponins of 0.05 to 0.23 to 0.16 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, 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 Repeat troponins pending 05/07 POD 1 4V CABG 05/09 EKG ordered and reviewed no signs of ST changes 05/10 ST 105 05/11 ST 100-105 GERD (gastroesophageal reflux disease) Yes Overview Addendum 05/14/2024 2:06 PM by Cydney Luu MD Continue Protonix 40 mg daily 05/07 extubated, no on home PPI dc'd 05/08 pt denies any GERD symptoms 05/09 + PPI for reflux 05/10 docusate, metoclopramide, miralax, senna, simethicone, continue NG to low intermitted, CLD forpt comfort, passing gas 05/11 as above denies reflux today NG clamp trial 05/14 PPI per blue surgery rec for blood tinged NG output Leukocytosis Yes Overview Signed 05/13/2024 12:38 PM by Christi Sherman APRN trending Hyperlipidemia Yes THOM (obstructive sleep apnea) Yes Overview Addendum 05/09/2024 11:15 AM by Miguel Downey MD 05/07 pt declines home CPAP use 05/08 on 2lNC 05/09 96% on 2lNC S/P CABG x 4 Not Applicable Overview Addendum 05/12/2024 12:26 PM by Christi Sherman APRN 05/06 w/Reda 4 chest tubes (mediastinal x2, left pleural, right pleural) A&V wires SBP <140 Aspirin, statin, beta stacey as clinically appropriate 05/07 epi .03 weaning, holding beta block (epi .03) 05/09 off all gtts NSR continue ICU level of care per CT surg Hypertension Yes Overview Addendum 05/09/2024 10:56 AM by Reyna Mcdonald APRN Requiring nitroglycerin gtt upon arrival to ICU 05/07 off gtts, SBP within goal 05/09: increased metop to 50 BID Hyperkalemia No Overview Addendum 05/12/2024 12:28 PM by Christi Sherman APRN Intro op max 7.3 Received dextrose, insulin, calcium, lasix intra-op Now resolved, pt with hypokalemia requiring replacement Cardiac volume overload No Overview Addendum 05/11/2024 10:55 AM by Miguel Downey MD Diuresis as clinically indicated 05/[address] surg 05/08 +20 lasix 05/09 + [address] surg 05/10 + 40 lasix 05/11 40IV lasix Hypoglycemia No Overview Addendum 05/13/2024 12:40 PM by Christi Sherman APRN - continue to monitor, checking LFTs On d5 LR at 75 Nausea with vomiting No Overview Addendum 05/14/2024 1:59 PM by Cydney Luu MD - post Reglan/ Simethicone for gastric bubble - may need NG placement, continue to monitor 05/10 docusate, metoclopramide, miralax, senna, simethicone, continue NG to low intermitted, CLD forpt comfort, passing gas , + one time dose of compazine 05/11 KUB reviewed dilated seg of small bowel, NG clamp trial, BM 05/10 denies N/V today 05/12 worsening condition with leukocytosis, tachycardia, tachypnea, nausea and abd complaints- sentfor repeat Ct scan and discussed with surgery team 05/13 continued high NG output Acute blood loss anemia (ABLA) No Overview Signed 05/14/2024 2:01 PM by Cydney Luu MD Lab Results Component Value Date HGB 7.2 (L) 05/14/202405/14 iron studies sent, 1u pRBCs Sidney Jackson MD [1] Past Surgical History: Procedure Laterality Date ABDOMINAL ADHESION SURGERY SECTION, CLASSIC CHOLECYSTECTOMY CORONARY ARTERY BYPASS GRAFT 05/06/2024 Coronary artery bypass grafting x4 with CHOWDARY to LAD as a free graft, reverse saphenous vein graft sequential to ramus intermedius artery then to obtuse marginal artery 1, reverse saphenous vein graftto PDA.(Reda) HAND SURGERY Right Tendon repair SHOULDER SURGERY [2] Social History Tobacco Use Smoking Status Every Day Current packs/day: 0.50 Types: Cigarettes Smokeless Tobacco Never [3] No family history on file. [4] Allergies Allergen Reactions Latex Other - please document in the comment field Oxycodone Nausea * Progress Notes - Iman Massey MD - 05/17/2024 3:09 PM EDT Surgical ICU Daily Progress Note 05/17/24 Rere Hunter HPI 53F with history of HTN, HLD, COPD, GERD, tobacco use, and CAD s/p 4v CABG on 05/06. SGE consulted for post-operative ileus. Interval: Upgraded to ICU due to concerns on fever and worsening mental status. Continues to have bowel movements with flatus. RLQ abdominal pain. Edited by: Iman Massey MD at 05/17/2024 1554 Relevant review of systems was obtained as able and is negative unless stated above in HPI. Vital signs: Visit Vitals BP 133/68 Pulse 102 Temp (!) 39.2 ??C (102.6 ??F) (Axillary) Resp 26 Ht 1.549 m (5' 0.98 ) Wt 60.3 kg (132 lb 15 oz) SpO2 98% BMI 25.13 kg/m?? Smoking Status Every Day BSA 1.61 m?? Intake/Output Summary (Last 24 hours) at 05/17/2024 1554 Last data filed at 05/17/2024 1445 Gross per 24 hour Intake 909.17 ml Output 200 ml Net 709.17 ml Physical Exam: Physical Exam Constitutional: Appearance: She is ill-appearing. HENT: Head: Normocephalic. Nose: Comments: NG Cardiovascular: Rate and Rhythm: Tachycardia present. Pulmonary: Effort: No respiratory distress. Abdominal: Tenderness: There is abdominal tenderness (RLQ). Skin: Comments: Left groin and inner thigh with firm hematoma Neurological: Comments: Oriented to self and time Lines/Drains/Tubes: Patient Lines/Drains/Airways Status Active Airway None O2 Delivery Method: Nasal cannula Output by Drain (mL) 05/15/24 07 - 05/15/24 1859 05/15/24 190 - 05/16/24 0659 05/16/24 07 - 05/16/24 1859 05/16/24 1900 - 05/17/24 0659 05/17/24 07 - 05/17/24 1554 Requested LDAs do not have output data documented. Labs in last 18 hours: CBC WBC 16.99 (H) Hb 9.2 (L) Plt 639 (H) Hct 29.1 (L) ANC 12.68 (H) INR ??, PTT ??, Anti-Xa ?? BMP Na 150 (H); 147 (H) Cl 118 (H); 116 (H) BUN 13; 13 Glu 69 (L); 58 (L) K 4.1; 4.0 Co2 16 (L); 14 (L) Cr 0.77; 0.79 Ca 7.4 (L); 7.4 (L) iCa 4.2 (L) Mg 1.8 (L), Phos ?? Lactate 1.3 LFT AST 83 (H) AlkPhos 127 (H) T Prot 6.1 (L) ALK 37 (H) Bili 0.7 Alb ?? D.Bili ?? Lab Trends: H/H Results from last 7 days Lab Units 05/17/24 1029 05/16/24 0320 05/15/24 0113 HEMOGLOBIN g/dL 9.2* 8.8* 8.9* HEMATOCRIT % 29.1* 27.6* 26.5* INR Cr Results from last 7 days Lab Units 05/17/24 1023 05/16/24 0320 05/15/24 0113 CREATININE mg/dL 0.79 0.77 0.91 0.90 Radiology: I have personally reviewed and interpreted the most recent KUB and my interpretation is that it shows increased gaseous distention without obvious pneumoperitoneum. NG tube in proximal stomach. Medications reviewed. Vital signs reviewed. Labs reviewed. Radiography reviewed. 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 DVT pro, remove CT 05/11 ASA/statin/BB Anxiety and depression Yes Overview Addendum 05/13/2024 12:37 PM by Christi Sherman APRN 05/07 Continue home bupropion XL 300 mg daily Continue home citalopram 40 mg daily Continue PRN hydroxyzine 25 mg q6 COPD (chronic obstructive pulmonary disease) ([facility] [place]) Yes Overview Addendum 05/12/2024 12:27 PM by Christi Sherman APRN 05/07 Duo nebs q6 SPO2 goal >88% On 4LNC 05/08 on 2LNC 05/09 on 2LNC +40 lasix 05/12 ongoing 3L NSTEMI (non-ST elevated myocardial infarction) ([facility]) Yes Overview Addendum 05/11/2024 10:54 AM by Miguel Downey MD Diagnosed at OSH with elevated troponins of 0.05 to 0.23 to 0.16 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, 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 Repeat troponins pending 05/07 POD 1 4V CABG 05/09 EKG ordered and reviewed no signs of ST changes 05/10 ST 105 05/11 ST 100-105 GERD (gastroesophageal reflux disease) Yes Overview Addendum 05/14/2024 2:06 PM by Cydney Luu MD Continue Protonix 40 mg daily 05/07 extubated, no on home PPI dc'd 05/08 pt denies any GERD symptoms 05/09 + PPI for reflux 05/10 docusate, metoclopramide, miralax, senna, simethicone, continue NG to low intermitted, CLD forpt comfort, passing gas 05/11 as above denies reflux today NG clamp trial 05/14 PPI per blue surgery rec for blood tinged NG output Leukocytosis Yes Overview Signed 05/13/2024 12:38 PM by Christi Sherman APRN trending Hyperlipidemia Yes THOM (obstructive sleep apnea) Yes Overview Addendum 05/09/2024 11:15 AM by Miguel Downey MD 05/07 pt declines home CPAP use 05/08 on 2lNC 05/09 96% on 2lNC S/P CABG x 4 Not Applicable Overview Addendum 05/12/2024 12:26 PM by Christi Sherman APRN 05/06 w/Reda 4 chest tubes (mediastinal x2, left pleural, right pleural) A&V wires SBP <140 Aspirin, statin, beta stacey as clinically appropriate 05/07 epi .03 weaning, holding beta block (epi .03) 05/09 off all gtts NSR continue ICU level of care per CT surg Hypertension Yes Overview Addendum 05/09/2024 10:56 AM by Reyna Mcdonald APRN Requiring nitroglycerin gtt upon arrival to ICU 05/07 off gtts, SBP within goal 05/09: increased metop to 50 BID Hyperkalemia No Overview Addendum 05/12/2024 12:28 PM by Christi Sherman APRN Intro op max 7.3 Received dextrose, insulin, calcium, lasix intra-op Now resolved, pt with hypokalemia requiring replacement Cardiac volume overload No Overview Addendum 05/11/2024 10:55 AM by Miguel Downey MD Diuresis as clinically indicated 05/[address] surg 05/08 +20 lasix 05/09 + [address] surg 05/10 + 40 lasix 05/11 40IV lasix Hypoglycemia No Overview Addendum 05/13/2024 12:40 PM by Christi Sherman APRN - continue to monitor, checking LFTs On d5 LR at 75 Nausea with vomiting No Overview Addendum 05/14/2024 1:59 PM by Cydney Luu MD - post Reglan/ Simethicone for gastric bubble - may need NG placement, continue to monitor 05/10 docusate, metoclopramide, miralax, senna, simethicone, continue NG to low intermitted, CLD forpt comfort, passing gas , + one time dose of compazine 05/11 KUB reviewed dilated seg of small bowel, NG clamp trial, BM 05/10 denies N/V today 05/12 worsening condition with leukocytosis, tachycardia, tachypnea, nausea and abd complaints- sentfor repeat Ct scan and discussed with surgery team 05/13 continued high NG output Acute blood loss anemia (ABLA) No Overview Signed 05/14/2024 2:01 PM by Cydney Luu MD Lab Results Component Value Date HGB 7.2 (L) 05/14/202405/14 iron studies sent, 1u pRBCs To Do: - PPI - can trial NG clamp once mental status improves/source of infection is controlled - discontinue suppositories to test for C. Diff if concerned - SGE will continue to follow Edited by: Iman Massey MD at 05/17/2024 1554 Iman Massey MD Procedures Cosigned by Tere Snow MD at 05/17/2024 4:03 PM EDT Associated attestation - Tere Snow MD - 05/17/2024 4:03 PM EDT I saw and evaluated the patient with the resident/fellow. I discussed the case with the resident/fellow and agree with the findings and plan as documented. Pt oriented to person, time and place. Words are garbled some Abd: soft, RLQ tenderness to palpation, no peritonitis Skin: warm Reviewed KUB Pt appears hypovolemic and would likely benefit from volume Diarrhea - could consider C diff testing Exam does not suggest need for any urgent/emergent operative intervention on her abdomen, minimal NGT output, no evidence of obstruction and no peritonitis Unsure of source for fever Would monitor UOP more closely, follow-up on cultures and see response from resuscitation May require re-imaging with CT scan abdomen and pelvis with IV contrast if worsens Discussed the plan with the patient, her family and the [facility] faculty Tere Snow MD, FACS sound printer Trauma Acute Care Surgery * Consults - Rhona Abrams RN - 05/17/2024 2:15 PM EDTAssociated Order(s): IP CONSULT TO ADULT VASCULAR ACCESS TEAM Dulce Alamo RETAIL SALES ADVISOR reached out to VAT due to pt transfer to ICU. RETAIL SALES ADVISOR states to hold on piccline due to fever and blood cxs redrawn. VAT asked RETAIL SALES ADVISOR to reorder when appropriate. * Clinician Note - Duane Amor - 05/17/2024 12:53 PM EDT Physical Therapy Attempt Patient Name: Rere Hunter Today's Date: 05/17/2024 Patient was attempted to be seen by physical therapy 05/17/2024 for PT Treatment however RN deferred session. Physical therapy team will follow-up when medically appropriate. Written by Duane Amor on 05/17/24 at 12:53 PM. * Clinician Note - Geno Regan - 05/17/2024 12:53 PM EDT Occupational Therapy Attempt Patient Name: Rere Hunter Today's Date: 05/17/2024 Patient was attempted to be seen by occupational therapy 05/17/2024 for OT Evaluation however RN deferred session. Occupational therapy team will follow-up as schedule permits. Written by Geno Regan on 05/17/24 at 2:38 PM. * Consults - Rhona Abrams RN - 05/17/2024 10:25 AM EDT Pt noted to be EMV 14. Kristina Do reports that pt continues to have confusion to place/time. Vat attempted home number, , which is disconnected and daughter Janeth, at [phone]. Left voicemail. Vat will continue to attempt to reach family for consent. Cally RETAIL SALES ADVISOR aware, picc on hold pending consent. * Pharmacy note - Db Kline - 05/17/2024 10:06 AM EDT Pharmacist TPN Progress Note Patient: Rere Hunter Age: 53 y.o. Admission Date: [id number] Subjective/Objective/Hospital Course: 53 y.o. female with PMHx of CAD, HTN, COPD, GERD, tremor, anxiety, depression, and tobacco use, who is currently hospitalized under the care of the CVT surgery team after having a CABG on 05/06/24. Since surgery she has developed nausea, vomiting, and abdominal pain with imaging findings consistent with ileus. Patient has had inadequate energy intake likely related to ileus and has been NPO x [address] scan shows contrast from her previous scan present in the large bowel, so bowel obstruction is very unlikely. This patient's presentation is most consistent with ileus. 05/17: TPN consult placed Allergies: Latex and Oxycodone LABS: Results from last 7 days Lab Units 05/16/24 1205 05/16/24 0320 05/15/24 0113 05/14/24 0335 05/13/24 0554 05/13/24 0043 05/12/24 1255 05/12/24 0058 05/12/24 0034 05/11/24 1402 05/11/24 0238 GLUCOSE mg/dL -- 99 99 109* -- 103* 125* -- 102* 89 86 BUN mg/dL -- 13 17 16 -- 18 17 -- 21 22* 22* CREATININE mg/dL -- 0.91 0.90 0.89 -- 0.98 1.05 -- 1.13* 1.18* 1.09 SODIUM mmol/L -- 144 145 141 -- 143 141 -- 141 142 141 POTASSIUM mmol/L 4.1 3.5* 3.3* 3.6 -- 3.8 3.6 -- 3.3* 3.9 3.7 CHLORIDE mmol/L -- 114* 111* 109* -- 106 102 -- 103 106 106 CO2 mmol/L -- 21* 22 23 -- 24 25 -- 23 24 24 CALCIUM mg/dL -- 7.4* 7.3* 7.4* -- 7.7* 8.1* -- 8.3* 9.1 7.8* CALCIUM IONIZED WB mg/dL -- -- -- -- -- -- -- 4.4* -- -- 4.2* PHOSPHORUS mg/dL -- -- 3.9 3.6 4.1 4.0 4.0 -- 3.9 4.4 3.8 MAGNESIUM mg/dL -- 2.0 1.9 2.0 -- 2.5* 2.4 -- 2.0 2.2 2.3 Results from last 7 days Lab Units 05/16/24 0320 05/15/24 0113 05/14/24 0335 05/13/24 0043 05/12/24 0034 05/11/24 0238 WBC 10*3/uL 20.02* 28.49* 35.22* 37.45* 32.60* 23.95* HEMOGLOBIN g/dL 8.8* 8.9* 7.2* 7.9* 8.4* 8.6* HEMATOCRIT % 27.6* 26.5* 22.0* 23.0* 23.9* 25.0* PLATELETS 10*3/uL 480* 402* 352 256 184 146* Results from last 7 days Lab Units 05/16/24 0320 05/15/24 0113 05/13/24 0554 05/13/24 0043 05/12/24 1255 05/11/24 1402 ALT U/L 19 20 30 -- -- -- AST U/L 60* 68* 84* -- -- -- ALKALINE PHOSPHATASE U/L 121* 129* 136* -- -- -- BILIRUBIN TOTAL mg/dL 0.6 1.0 1.1 -- -- -- ALBUMIN g/dL 2.2* 2.4* 2.6* 2.6* 2.7* 3.0* Nutrition Labs: Lab Results Component Value Date TRIG 271 (H) 05/01/2024 BILITOT 0.6 05/16/2024 ALBUMIN 2.2 (L) 05/16/2024 PREALBUMIN 6.5 (L) 05/09/2024 HGBA1C 5.3 05/01/2024 IRON 25 (L) 05/14/2024 TIBC 156 (L) 05/14/2024 Microbiology Results Procedure Component Value Units Date/Time Blood Culture (Aerobic/Anaerobet Set) [[id number]] Collected: 05/13/24946 Order Status: Completed Specimen: Blood from AC, Right Updated: 05/16/24 110 Culture No growth at day 3 Vitals: Visit Vitals BP 126/62 (BP Location: Right arm, Patient Position: Lying) Pulse 110 Temp 36.8 ??C (98.2 ??F) (Oral) Resp 23 [place] Coma Scale Score: 14 [place] Scale Score: 17 Oxygen Therapy: None (Room air) Skin Integrity: Bruising (incisions) Edema: Generalized Wt Readings from Last 3 Encounters: 05/16/24 60.3 kg (132 lb 15 oz) 06/28/23 59 kg (130 lb) 04/26/23 62.6 kg (138 lb) Current Diet Order: Dietary Orders (From admission, onward) Start Ordered 05/11/242222 NPO diet Diet effective now 05/11/242221 Current Medications aspirin, 81 mg, Oral, Daily atorvastatin, 80 mg, Oral, Nightly bisacodyl, 10 mg, Rectal, BID buPROPion, 150 mg, Nasogastric, BID citalopram, 40 mg, Oral, Daily docusate sodium, 100 mg, Oral, BID heparin (porcine), 5,000 Units, Subcutaneous, q8h hydrOXYzine HCl, 25 mg, Oral, Nightly ipratropium-albuterol, 3 mL, Nebulization, q6h RT melatonin, 6 mg, Oral, Nightly metoprolol tartrate, 50 mg, Oral, BID nystatin, 4 mL, Swish & Swallow, 4x daily pantoprazole, 40 mg, Intravenous, Daily polyethylene glycol, 17 g, Oral, Daily primidone, 50 mg, Oral, BID senna, 17.2 mg, Oral, Nightly dextrose 5 % and sodium chloride 0.45 % with KCl 20 mEq/L, 60 mL/hr Current Anthropometrics: Height: 154.9 cm (5' 0.98 ) Weight: 61.1 kg (134 lb 12.8 oz) [place] body weight: 47.8 kg (105 lb 4.8 oz) Adjusted ideal body weight: 52.8 kg (116 lb 5.7 oz) (126.25%) of IBW Body mass index is 25.13 kg/m??. Adjusted wt: 50.9 kg (if over 125% of IBW) CENTRAL IV Access: Pending Estimated Nutritional Needs: HBE: 1153 Stress Factor: 1.2-1.4 Total Calories/day: 2842-9301 Protein (amino acids): 1.3-1.6 grams/kg Protein (Amino acids): 66-81 grams/day 05/17/2024 Plan/Recommendation: No TPN today due to lack of PICC access, which is being held due to fever and repeat blood cultures. LOW CHO TPN: DEXTROSE: 10% (156 g/day CHO) AMINO ACIDS: 5% (78 g/day - 1.51 g/kg/day Amino acids) C:A 1:2 @ 65 ml/hr, with 30mg/day thiamine, MVI, and Trace elements Every other day 250ml 20% SMOF lipids Replace electrolytes outside of TPN Calcium and/or Phosphorus supplements MUST be in a separate line from the TPN to avoid precipitation Obtain BMP, magnesium, and Phos daily x 3days and then at least twice weekly Obtain LFT and TGLY weekly GOAL TPN: DEXTROSE: 18% (281 g/day CHO) AMINO ACIDS: 5% (78 g/day - 1.51 g/kg/day Amino acids) C:A 1:2 @ 65 ml/hr, with 30mg/day thiamine, MVI, and Trace elements Every other day 250ml 20% SMOF lipids 1517 Total kcal/day - 29.8 kcal/kg/day GUR: 3.83 I have monitored the TPN therapy, including the labs, and have communicated any modifications with the primary medical/surgical team. Continue current TPN formula and lipid regimen as above. I have communicated the TPN plan with the IV room. Thank you, Magalie PaulinoD Candidate 2024 Preceptor - Magalie SparksD Cosigned by Moni Méndez, PharmD at 05/17/2024 3:37 PM EDT Associated attestation - Moni Méndez PharmD - 05/17/2024 3:37 PM EDT I have reviewed the students assessment and plan and agree with the below statements * Progress Notes - Heather Ram - 05/17/2024 9:32 AM EDT Case Management Adult Progress Note Rere Hunter 53 y.o. female CSN: [id number] Admission: 05/01/2024 11:01 PM Primary Problem: CAD, multiple vessel Anticipated Discharge Date: TBD Has Discharge Plans Changed? No Housing Circumstances: Not Applicable Housing Circumstances Action Taken: Other N/A Additional Comments SW spoke with primary team this date re: pt's plan of care. According to primary team, this pt is not medically stable for DC this date and is not anticipated to be stable within 72 hrs. Pt anticipated to be ready next week. Pt still has NGT and ileus that needs to resolve prior to DC. See medical notes for more detail. Pt has been [facility] to [facility]; liaison Prema following. No further SW concerns identified at this time. SW will monitor pt's progress and will follow up with DC planning and needs as appropriate. NAYA Albarran * Progress Notes - Dulce Alamo APRN - 05/17/2024 9:15 AM EDT CVT Progress Note 24 Hour Events/HPI: Pt seen with Dr. Austin. Pt is emotionally upset due to personal family issues and is complaining of incredibly dry mouth. Discussed plan to obtain PICC (today if possible) and start TPN, likely tomorrow. Per Dr. Austin, transfuse one unit of PRBCs and start 0.45%NS with KCL 20mEq at 60ml/hr IV. Review of Systems: A complete ROS was obtained. All were negative except as noted in HPI. Objective: All laboratory data, images, tracings, and vital sign data for past 24 hours are personally reviewed unless otherwise noted. @PATIENTWT@ , Weight: 61.1 kg (134 lb 12.8 oz) , Ht Readings from Last 1 Encounters: 05/11/24 1.549 m (5' 0.98 ) , Body mass index is 25.13 kg/m??. VITALS (last 24h) Temp: [36.5 ??C (97.7 ??F)-37.6 ??C (99.7 ??F)] 36.8 ??C (98.2 ??F) Heart Rate: [85-112] 110 Resp: [18-34] 23 BP: (93-127)/(53-73) 126/62 Visit Vitals BP 126/62 (BP Location: Right arm, Patient Position: Lying) Pulse 110 Temp 36.8 ??C (98.2 ??F) (Oral) Resp 23 Ht 1.549 m (5' 0.98 ) Wt 60.3 kg (132 lb 15 oz) SpO2 96% BMI 25.13 kg/m?? Smoking Status Every Day BSA 1.61 m?? I & O Summary Intake/Output Summary (Last 24 hours) at 05/17/2024 0915 Last data filed at 05/17/2024 0625 Gross per 24 hour Intake 2083.34 ml Output 250 ml Net 1833.34 ml LABS pending MEDICATIONS aspirin, 81 mg, Oral, Daily atorvastatin, 80 mg, Oral, Nightly bisacodyl, 10 mg, Rectal, BID buPROPion, 150 mg, Nasogastric, BID citalopram, 40 mg, Oral, Daily docusate sodium, 100 mg, Oral, BID heparin (porcine), 5,000 Units, Subcutaneous, q8h hydrOXYzine HCl, 25 mg, Oral, Nightly ipratropium-albuterol, 3 mL, Nebulization, q6h RT melatonin, 6 mg, Oral, Nightly metoprolol tartrate, 50 mg, Oral, BID nystatin, 4 mL, Swish & Swallow, 4x daily pantoprazole, 40 mg, Intravenous, Daily polyethylene glycol, 17 g, Oral, Daily primidone, 50 mg, Oral, BID senna, 17.2 mg, Oral, Nightly dextrose 5 % and sodium chloride 0.45 % with KCl 20 mEq/L, 60 mL/hr PRN medications: acetaminophen, benzocaine-menthol, famotidine, ipratropium- albuterol, methocarbamol, nicotine, nicotine polacrilex, promethazine OR promethazine OR promethazine Physical Exam: GENERAL: WD, WN, NAD. EYES: No scleral icterus or conjunctivitis HENT: Atraumatic, normocephalic, nares patent, mucus membranes moist NECK: Supple, trachea midline RESP/CHEST: Symmetric expansion; non labored. CTA bilaterally. CARD: Regular rate and rhythm, normal S1 and S2, no murmur, rub, or gallop, Pedal pulses palpable. No JVD. No edema. Sternum stable, incision with edges approximated, DCI. Extremities: No cyanosis or clubbing. GI: Not as firm as yesterday per Dr. Austin. Tender to palpation, distended. BS not audible with stethoscope; however, she did have a BM this morning.. SKIN: No rash. NEURO: Awake and alert. Motor intact and no focal deficits. PSYCH: Mood and affect congruent and appropriate to situation. Assessment and Plan: Ms. Rere Hunter is a 53 year old F with PMH of anxiety, depression, COPD, and tobacco abuse.She initially presented to [facility], ruled in for NSTEMI, and underwent cardiac catheterization showing multivessel CAD with critical left main stenosis. She was transferred to for surgical revascularization evaluation. N/V Fever Ileus Leukocytosis (POA) Tachycardia Concern for Sepsis - 05/17 Temp 101 axillary - WBC count 23K post op, trended down to 16K, then peaked at 37K, most recent 20 - Pt appears dry - Labs ordered, pt contracted, lactate 1.4; CBC w/diff & BCs pending - NG tube remains to suction, day 6; PICC ordered with plan to start TPN tomorrow 05/18 - Transfer back to ICU for closer monitoring Hypoglycemia - Glucose 68 - A1C is 5.3 - Hypoglycemia protocol NSTEMI on presentation Multivessel CAD (POA) - Troponins 0.05->0.23->0.16 - s/p Plavix load (600mg) - ASA, atorvastatin and beta-stacey - Imaging uploaded to [facility] system and reviewed with Dr. Chery - Pre-op studies, including CT chest completed and reviewed - Echo: LVEF 61%, no significant valvular dz - Held plavix to allow washout, continued heparin gtt. Added Imdur - OR cancelled, still inhibited, P2Y12 prior to surgery 134 - s/p CABG x 4 with CHOWDARY to LAD as a free graft, reverse SVG sequential to ramus intermedius arterythen to obtuse marginal artery 1, reverse saphenous vein graft to PDA. Greater saphenous vein vessel harvest of left and right side with endoscopic technique. - Routine post cardiac surgery care: Sternal precautions x 6 weeks, PT, bowel regimen to prevent constipation and aggressive pulmonary toilet. Post Op Volume Overload - Inherent to surgery - Pt currently appears dry 05/18 - To receive one unit prbc today; start 0.45% NS with KCL 20mEq at 60ml/hr Acute Blood Loss Anemia - Expected post op major heart surgery - 05/17 transfuse one unit PRBCs today per Dr. Austin, H/H Hypertension - Metoprolol 50mg po BID Thrombocytosis (POA) - Platelets 480 - Continue to monitor Hypocalcemia (POA) - Monitor and replete prn Prolonged QT (POA) - Continue to monitor rhythm Hyperlipidemia (POA) Hypercholesteremia (POA) Hypertriglyceridemia (POA) Hypoalphalipoproteinemia (POA) - Statin COPD (POA) - PFTs completed - Dudae Anxiety (POA) Depression (POA) - Continue home bupropion and citalopram - No more prn xanax or ativan per Dr. Austin Tremor (POA) - Hold propanolol. Continue metoprolol - Continue home primidone GERD (POA) - PPI - PRN tums THOM (POA) - Needs outpt sleep study, will defer to PCP - Supplemental O2 as needed Tobacco Abuse (POA) - Complicates all aspects of care - Cessation counseling - NRT prn Overweight (POA) - BMI 25.13 - Complicates care Plan: - Transfuse one u PRBC 05/17 - Respiratory panel ordered - Order PICC in prep for TPN to start tomorrow - Change IVFs to 0.45% NS w/ KCL 20mEq at 60ml hr (hold during blood transfusion) - Labs ordered: CBC w/diff, BC, & resp panel pending, lactate 1.4 - Pt with small BM this am per pt and nurse - Temp 101 axillary prior to initiation of blood transfusion - Transfer to ICU per Dr. Austin Cardiothoracic Surgery [phone] * Significant Event - Iman Massey MD - 05/16/2024 6:35 PM EDT Pt complaining of nausea today with intermittent agitation/confusion. Abdomen soft and nondistended. Will reassess for NG clamp trial in the am to avoid aspiration risk overnight. Also recommend delirium precautions with worsening agitation. Avoid benzos. SGE will follow for resuming of diet. Iman Massey MD Emergency Medicine, PGY-1 * Consults - Cheri Mckay RD - 05/16/2024 4:33 PM EDT Adult Nutrition Evaluation Note Rere Hunter 53 y.o. female CSN: [id number] Room/Bed 135/135A Nutrition evaluation type: follow-up Reason for evaluation: Hospital course: 53 y.o. female presents for CABG evaluation. OR on 05/06. 05/16: NPO x 5 days d/t ileus. Trial of clamping NGT. SGE is following. Pt has been intermittently confused. Past medical/ surgical history: Medical History[1] Surgical History[2] Social history: Additional comments: Minimal PO intake recently, diet advancing per protocol. 05/11: Pt reports appetite improving, trying to eat. Pt denied n/v/d/c, denied chewing/swallowing difficulty. Pt denied involuntary wt changes. No feeding tube present. Vitals and Basic Assessment: BP: 111/56 Temp: 37.3 ??C (99.2 ??F) Invasive Ventilator Initiated (ETT/Trach Only): Yes Oxygen Therapy: None (Room air) O2 Delivery Method: Nasal cannula [place] Coma Scale Score: 15 [place] Scale Score: 20 Joshua/Cubbin Pressure Risk Score: 39 Most Recent BM Date: 05/16/24 GI Symptoms: Diarrhea Edema: Generalized Allergies: NKFA Medications: aspirin, 81 mg, Oral, Daily atorvastatin, 80 mg, Oral, Nightly bisacodyl, 10 mg, Rectal, BID bisacodyl, 10 mg, Rectal, BID buPROPion, 150 mg, Nasogastric, BID citalopram, 40 mg, Oral, Daily docusate sodium, 100 mg, Oral, BID heparin (porcine), 5,000 Units, Subcutaneous, q8h hydrOXYzine HCl, 25 mg, Oral, Nightly ipratropium-albuterol, 3 mL, Nebulization, q6h RT melatonin, 6 mg, Oral, Nightly metoprolol tartrate, 50 mg, Oral, BID nystatin, 4 mL, Swish & Swallow, 4x daily pantoprazole, 40 mg, Intravenous, Daily polyethylene glycol, 17 g, Oral, Daily [START ON 05/17/2024] potassium chloride, 20 mEq, Oral, Daily primidone, 50 mg, Oral, BID senna, 17.2 mg, Oral, Nightly Meds were reviewed: Yes Labs: Lab Results Component Value Date GLUCOSE 99 05/16/2024 CALCIUM 7.4 (L) 05/16/2024 NA 144 05/16/2024 K 4.1 05/16/2024 CO2 21 (L) 05/16/2024 CL 114 (H) 05/16/2024 BUN 13 05/16/2024 CREATININE 0.91 05/16/2024 PHOS 3.9 05/15/2024 MG 2.0 05/16/2024 HGBA1C 5.3 05/01/2024 Anthropometrics: Height: 154.9 cm (5' 0.98 ) Weight: 60.3 kg (132 lb 15 oz) BMI (Calculated): 25.13 Weight Evaluation: Overweight (BMI 25-29.9) [place] Body Weight (kg): 47.7 Percent [place] Body Weight: 126 Adjusted Body Weight (kg): 50.9 Estimated Needs: Metabolic Cart Study Results: Current Nutrition Intake: Diet Order: NPO Diet Texture: (-) Adult Carbohydrate Restriction: (-) Fat Restriction: (-) Percent Meals Eaten (%): (-) Diet Experience and Nutrition History: Diet Education Provided: Will monitor Pertinent home medications: reviewed Gnosticist needs: Nutrition Focused Physical Exam: Physical exam performed on (date): 05/11 Temples (muscles): None Clavicle (muscle): None Shoulder (muscle): None Interosseous (muscle): None Thigh (muscle): None Calf (muscle): Mild Orbital (fat): None Triceps (fat): None Assessment of Malnutrition: Malnutrition Identified: No Nutrition Problem: Increased nutrient needs protein, calories related to s/p CABG as evidenced by increased metabolic demands of surgical wound healing. Status of Nutrition Diagnosis: Ongoing Inadequate energy intake related to ileus as evidenced by NPO x 5 days Status of Nutrition Diagnosis: New Nutrition Interventions and Recommendations: - Resume/advance diet per team discretion. - Closely monitor Phosphorus, K+, Magnesium levels as diet resumes (potential risk for refeeding syndrome). - MVI daily. Nutrition Monitoring and Goals: - Will monitor PO intake/EN infusion, weight, skin, labs, nutrition status - Pt will consume >75% of meal intake (currently NPO) - monitor elytes - Pt will maintain body weight throughout hospital admission Acuity Level: [address], LD [1] Past Medical History: Diagnosis Date Anxiety COPD (chronic obstructive pulmonary disease) ([facility] [place]) 05/01/2024 Continue Duo nebs q6 SPO2 goal >88% Depression GERD (gastroesophageal reflux disease) 05/01/2024 Continue Protonix 40 mg daily On mechanically assisted ventilation ([facility] [place]) 05/06/2024 Arrived to ICU intubated 05/07 extubated to 4LNC 05/08 resolved Tobacco use 05/01/2024 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 Complicates all aspects of care and recovery Tremor 05/01/2024 Continue home primidone 50 mg BID [2] Past Surgical History: Procedure Laterality Date ABDOMINAL ADHESION SURGERY SECTION, CLASSIC CHOLECYSTECTOMY CORONARY ARTERY BYPASS GRAFT 05/06/2024 Coronary artery bypass grafting x4 with CHOWDARY to LAD as a free graft, reverse saphenous vein graft sequential to ramus intermedius artery then to obtuse marginal artery 1, reverse saphenous vein graftto PDA.(Reda) HAND SURGERY Right Tendon repair SHOULDER SURGERY * Progress Notes - Uriah Ricardo PA - 05/16/2024 7:31 AM EDT CVT Progress Note 24 Hour Events/HPI: Overnight she complained of nausea and threatened to leave AMA. This morning she says she was hallucinating. Currently c/o throat pain (from intubation) Nurse reports she is ambulating and working with PT +BM this morning Remains intermittently confused Objective: All laboratory data, images, tracings, and vital sign data for past 24 hours are personally reviewed unless otherwise noted. @PATIENTWT@ , Weight: 61.1 kg (134 lb 12.8 oz) , Ht Readings from Last 1 Encounters: 05/11/24 1.549 m (5' 0.98 ) , Body mass index is 25.13 kg/m??. VITALS (last 24h) Temp: [36.9 ??C (98.5 ??F)-37.3 ??C (99.1 ??F)] 36.9 ??C (98.5 ??F) Heart Rate: [85-118] 100 Resp: [16-35] 16 BP: (86-123)/(50-78) 107/62 Visit Vitals BP 107/62 (BP Location: Right arm, Patient Position: Lying) Pulse 100 Temp 36.9 ??C (98.5 ??F) (Axillary) Resp 16 Ht 1.549 m (5' 0.98 ) Wt 60.3 kg (132 lb 15 oz) SpO2 96% BMI 25.13 kg/m?? Smoking Status Every Day BSA 1.61 m?? I & O Summary Intake/Output Summary (Last 24 hours) at 05/16/2024 0731 Last data filed at 05/16/2024 0400 Gross per 24 hour Intake 552 ml Output 450 ml Net 102 ml LABS Results from last 7 days Lab Units 05/16/2431905/15/2411205/14/24 033 WBC 10*3/uL 20.02* 28.49* 35.22* HEMOGLOBIN g/dL 8.8* 8.9* 7.2* HEMATOCRIT % 27.6* 26.5* 22.0* PLATELETS 10*3/uL 480* 402* 352 INR ??, PTT ??, Anti-Xa ?? Ca 7.4 (L) iCa ?? Mg 2.0, Phos ?? Lactate ?? Results from last 7 days Lab Units 05/16/24 0320 05/15/24 01105/14/24 03305/13/24 0554 SODIUM mmol/L 144 145 141 -- POTASSIUM mmol/L 3.5* 3.3* 3.6 -- CHLORIDE mmol/L 114* 111* 109* -- CO2 mmol/L 21* 22 23 -- BUN mg/dL 13 17 16 -- CREATININE mg/dL 0.91 0.90 0.89 -- CALCIUM mg/dL 7.4* 7.3* 7.4* -- BILIRUBIN TOTAL mg/dL 0.6 1.0 -- 1.1 ALKALINE PHOSPHATASE U/L 121* 129* -- 136* ALT U/L 19 20 -- 30 AST U/L 60* 68* -- 84* GLUCOSE mg/dL 99 99 109* -- MEDICATIONS aspirin, 81 mg, Oral, Daily atorvastatin, 80 mg, Oral, Nightly bisacodyl, 10 mg, Rectal, BID buPROPion, 150 mg, Nasogastric, BID citalopram, 40 mg, Oral, Daily docusate sodium, 100 mg, Oral, BID esomeprazole, 40 mg, Oral, Daily before breakfast heparin (porcine), 5,000 Units, Subcutaneous, q8h hydrOXYzine HCl, 25 mg, Oral, Nightly melatonin, 6 mg, Oral, Nightly metoprolol tartrate, 50 mg, Oral, BID nystatin, 4 mL, Swish & Swallow, 4x daily polyethylene glycol, 17 g, Oral, Daily primidone, 50 mg, Oral, BID senna, 17.2 mg, Oral, Nightly dextrose 5 % and lactated Ringer's, 75 mL/hr, Last Rate: 75 mL/hr (05/16/24 0600) PRN medications: acetaminophen, benzocaine-menthol, famotidine, ipratropium- albuterol, ipratropium-albuterol, lidocaine, methocarbamol, nicotine, nicotine polacrilex, promethazine OR promethazineOR promethazine Physical Exam: GENERAL: Well-developed, well-nourished. uncomfortable RESP/CHEST: Clear to auscultation bilaterally. Normal work of breathing with symmetric expansion noted. Midsternal incision CDI and Sternum stable CARD: Regular rate and rhythm. Normal S1/S2. No murmur. No rubs or gallops. Extremities: No lower extremity edema present. No cyanosis or clubbing. Pedal pulses palpable +2. EVH site CDI GI: distended. Rare bowel sounds SKIN: [place], warm, and dry. No rash, sores, or lesions. NEURO: AAOx4. Motor function intact and no focal deficits. PSYCH: intermittently confused, may have had hallucinations last night. Assessment: NSTEMI MVCAD S/P CABG x 4 05-06-24 - ASA, Statin, BB - Routine post cardiac surgery care: sternal precautions x 6 weeks, PT, bowel regimen to prevent constipation and aggressive pulmonary toilet. Post operative volume overload - resolved N/V Ileus - NG tube remains to suction - general surgery with re-evaluate her today Acute blood loss anemia - expected after surgery - monitor and transfuse as indicated HTN - metoprolol 50 mg bid HLP - Atorvastatin 80 mg Hypokalemia - 05/16: 60 mEq ordered today, recheck K at noon. Recheck K 4.1. add KCL 20 mEq po daily Leukocytosis (POA) - down trending Depression and Anxiety - Bupropion home dose - Citalopram home dose - Hydroxyzine HS GERD - Esomeprazole COPD - Duonebs Plan: - Duonebs - recheck K at noon, likely start daily K - start IV fluid replacement - Discussed with General surgery - declined Chloraseptic spray for throat pain Cardiothoracic Surgery [phone] * Significant Event - Tere Snow MD - 05/15/2024 10:00 PM EDT Pt feels better today. Having bowel function Abd: soft, no significant distention Ok for clamp trial SGE will follow for resuming of diet Tere Snow MD, FACS sound printer Trauma Acute Care Surgery * Progress Notes - Heather Ram - 05/15/2024 12:47 PM EDT Case Management Adult Progress Note Rere Hunter 53 y.o. female CSN: [id number] Admission: 05/01/2024 11:01 PM Primary Problem: CAD, multiple vessel Anticipated Discharge Date: TBD Has Discharge Plans Changed? No Medicare Second Notice: Housing Circumstances: Not Applicable Housing Circumstances Action Taken: Other N/A Additional Comments SW spoke with primary team this date re: pt's plan of care. According to primary team, this pt is not medically stable for DC this date and is not anticipated to be stable within 72 hrs. Pt downgraded to tele this date. See medical notes for more detail. Pt has acute rehab recs. SW met with pt at bedside to discuss these recs. Pt amenable to SW sending referral to [facility] and is agreeable to taking dayana bustamante. SW sent referral to [facility], liafrank Lloyd is following. No further SW concerns identified atthis time. SW will monitor pt's progress and will follow up with DC planning and needs as appropriate. NAYA Albarran * Brooklyn Jacinto RN - 05/15/2024 10:45 AM EDT Images from the original note were not included. 206 Heart Healthy Diet Understanding Fats, MyPlate, and the DASH Plan The facts on cholesterol Cholesterol is a fat like substance that supports the production of certain hormones. It is found in all foods of animal origin. We not only eat cholesterol, but we also produce it in our liver. Although cholesterol is important, a high blood cholesterol level can be harmful. An elevated cholesterol level can lead to atherosclerosis, which is when arteries become thickened or hard due to plaque buildup in an artery's inner lining. Atherosclerosis can lead to heart disease, strokes, and peripheral vascular disease. Certain risk factors such as an elevated cholesterol level, hypertension, cigarette smoking, lack of exercise, obesity, and a family history of heart disease increase one?s risk of developing atherosclerosis and heart disease. However, most of these risk factors can be controlled. The following dietary guidelines provide information on how to eat properly in order to reduce your risk of developing atherosclerosis. The facts on fats Polyunsaturated: These are considered beneficial fats in limited quantity. Main sources are safflower, sunflower, corn, soybean, and cottonseed oil. Usually liquid at room temperature, but start to turn solid when chilled. They can help to lower the level of blood cholesterol. Monounsaturated Fats: These are considered beneficial fat. Main sources are canola, olive, and peanut oils. They have been demonstrated to reduce the level of blood cholesterol. Saturated Fats: These fats raise blood cholesterol levels. These fats usually fats come from animalfoods, but some vegetable oils such as coconut, palm kernel, and palm oils are saturated. Hydrogenated Fats (also called trans fats): These are considered saturated fats. They are chemically changed from liquid fat to solid fat and can be categorized as partially hydrogenated or hydrogenated. Hydrogenated fats resemble saturated fats and should be avoided. Examples include margarines, shortenings, and regular peanut butter (when liquid oil is not the first ingredient). Guidelines: ?? Reduce saturated fat and trans fat intake. ?? Choose polyunsaturated and monounsaturated fats in place of saturated fats or trans fats, as these are considered healthy fat. ?? Limit sodium intake. ?? Increase intake of fiber and complex carbohydrates such as vegetables, fruits, dried beans and peas, and whole grain cereals and breads. Milk and milk products Choose: Milk and milk products with 1% or less milk fat: ?? Skim (liquid, powdered or evaporated) ? and 1% milk ?? Skim buttermilk ?? Low fat buttermilk ?? Non-fat yogurt and frozen dessert ?? Frozen low-fat yogurt ?? Ice milk Low fat cheese containing 3 gms of fat or less per ounce: ?? Bynum?s cheese ?? Marks?s cheese ?? Part skim mozzarella cheese ?? Ricotta cheese ?? Low-fat cottage cheese ?? Dry curd cottage cheese Always try to buy low-fat dairy products when you can, and always read the labels! Avoid: Milk and milk beverages as listed: ?? 2% milk ?? Whole milk ?? Chocolate milk and chocolate drinks ?? Evaporated or condensed whole milk ?? Malted milk ?? Milkshakes ?? Eggnog Milk products as listed: ?? Regular Cream ?? Sour cream ?? Half and half cream ?? Whipped topping containing coconut or palm oil Cheeses containing more than 5 grams of fat per ounce: ?? Cream cheese ?? Creamed cottage cheese ?? Natural and processed cheeses such as English, blue, mozzarella, and [place] Meat and protein substitutes Special instructions: ?? Trim excess fat prior to cooking. ?? Remove skin of chicken prior to cooking. ?? Choose poultry and fish more often than red meat. Red meat includes beef, pork, bahena, and veal. When you do eat red meat, choose leaner cuts when possible, such as lean ground beef (93/7, 90/10, 85/15), etc. ?? Skim the fat from meat juices before adding to stews, soups, and gravy. ?? Chilling the meat juices will cause the fat to harden for easier removal. ?? To extend meat, use as part of a casserole or mixed with vegetables, rice, or pasta. Choose: ?? Fish ?? Shellfish ?? Water - packed canned tuna or salmon ?? Poultry without skin ?? Beef and pork, lean cuts ?? Veal ?? Lentils ?? Legumes ?? Dried beans and peas ?? Egg substitute ?? Dried or chipped beef ?? Luncheon meats with less than 3 grams fat per ounce ?? Eggs ?? Bahena lean cuts ?? Natural peanut butter ?? Soy and texturized protein Avoid: ?? Regular ground beef ?? Marbled prime grade and fatty meats ?? Spare ribs ?? Burdick ?? Hot dogs ?? Sausages ?? High fat luncheon meat ?? Cold cuts ?? Fatty corned beef ?? Goose ?? Duck ?? Poultry skin ?? Fish canned in oil or fried ?? Dried beans prepared with salt pork ?? Caviar ?? Organ meats (heart, liver, brains, kidney) ?? Sweet breads ?? Commercially fried foods ?? Canned or frozen meats with gravy or sauces ?? Frozen packaged convenience entrees containing more than 10 grams fat per serving ?? Other frozen or packaged foods containing more than 3 grams fat per serving Breads, cereals, and grains Choose: ?? Oat bran ?? Oat meal ?? Whole wheat ?? [place] ?? Pumpernickel ?? White ?? Raisin ?? Crackers prepared without butter, lard, coconut, or palm oil ?? Dry cereals that contain allowed fats ?? Rice and pasta prepared with allowed fats ?? Egg noodles (limit to ?? cup per day) ?? Kazakh ?? Ethiopian ?? Estonian muffins ?? Pancakes, waffles, biscuits, and cornbread made with allowed ingredients ?? Flat bread ?? Bal crackers ?? Matzoh crackers ?? Whole grain or enriched cereals prepared with allowed oils ?? Wheat germ Avoid: ?? Egg or cheese bread ?? Butter rolls ?? Commercially prepared products: biscuits, muffins, sweet rolls, cornbread, pancakes and waffles,vietnamese toast, croissants ?? Noodles ?? Cheese crackers ?? Flavored crackers prepared with saturated fats ?? Any cereal prepared with saturated fat ?? Macedonian noodles ?? Rice and pasta prepared with eggs, cream, or high fat cheese Fruits Choose: ?? Any fresh, frozen, canned, or dried fruit or juice ?? Avocado Vegetables Choose: ?? Any fresh, frozen, or canned vegetables ?? Potatoes prepared with allowed fat ?? Olives (limit to 10 small or 5 large per day) Avoid: ?? Buttered, creamed, or fried vegetables ?? [id number], commercially made ?? Vegetables prepared in a cheese sauce Soups Choose: ?? Bouillon and clear broth ?? Fat free vegetable soup ?? Dehydrated soups made with allowed fats Avoid: ?? Creamed soups ?? Soups made with whole milk, cream, butter, or meat fat Drinks Choose: ?? Coffee ?? Tea ?? Carbonated beverages (If drinking soda, choose the diet version) ?? Fruit drinks ?? Fruit and vegetable juice ?? Hot chocolate made from cocoa, skim milk, and allowed oils Avoid: ?? Beverages with cream ?? Commercial hot chocolate and chocolate drinks ?? Eggnog ?? Milkshakes ?? Alcohol (except with physician?s approval) Fats Special Instructions: Including healthy fats as part of our diets is essential to giving our bodiesenergy, supporting cell function, protecting our organs, and keeping our bodies warm. They also help our bodies to absorb some nutrients and produce important hormones. There are 9 calories in every gram of fat we eat, regardless of what type of fat it is. Some foods are higher in fat than others, such as nuts, mayonnaise, salad dressings, sandwich spreads, cooking oils, etc. When eating these foods that are higher in fat, it is important to be mindful of their serving sizes. For example, a serving of nuts is considered to be a small handful or 1.5 ounces of whole nuts, or 2 tbsp of nut butter. Some examples of these foods higher in fat and their serving sizes are listed below: ?? Nuts: The [employer] recommends including 5 servings of nuts per week as part ofa healthy diet. Remember to count the hidden fats in bakery products and snack foods, fat used in cooking, or on vegetables and bread. o Almonds: 20-23 almonds, or ?? cup o Hazelnuts: ~21 hazelnuts, or ?? cup o Peanuts: ~28 shelled peanuts (i.e., not in the shell), or ?? cup o Pecans: ~15-19 pecan halves, or ?? cup o Pistachios:49 kernels of pistachio nut, or ?? cup ?? Walnuts: 14 walnut halves, or ?? cup ?? Nut butters, such as peanut butter: 2 tablespoons ?? Mayonnaise and sandwich spreads: 1 tablespoon ?? Reduced-calorie salad dressings: 2 tablespoons ?? Cooking oils, such as olive oil, butter, canola oil, avocado oil, etc.: 1 tablespoon o The [employer] recommends limiting oils to 3 tablespoons, or 9 teaspoons, per day. Choose: ?? Liquid vegetable oils (canola, corn, cottonseed, peanut, olive, safflower, sunflower, soybean) ?? Margarines with no trans fat ?? Non-stick cooking sprays as desired ?? Butter imitations as desired ?? Commercial salad dressings prepared without cream or cheese ?? Mayonnaise Avoid: ?? Palm oil ?? Coconut oil ?? Butter ?? Lard ?? Salt pork ?? Burdick ?? Meat drippings ?? Gravies and cream sauces unless made with allowed fat and/or skim milk ?? Sweet and sour milk ?? Whipped toppings ?? Artificial whipping cream ?? Half and half cream ?? Hydrogenated shortening ?? Salad dressings prepared from unknown or undesirable oils ?? Blue cheese salad dressing ?? Margarines with first ingredient listed as a hydrogenated oil ?? Filberts ?? Cashews ?? Macadamia nuts Sweets, desserts, and snacks Choose: ?? Fresh fruit ?? Dried fruits ?? Fruit ices ?? Sherbet ?? Gelatin ?? Fruit whips ?? Meringues ?? Animal crackers ?? Fig bars ?? Yordan food cake ?? Cakes, pies, cookies, and frostings prepared with allowed ingredients ?? Sorbet ?? Ice milk ?? [place] ?? Gum drops ?? Jelly beans ?? Hard candy ?? Marshmallows ?? Plain sugar ?? Mints ?? Jam and jelly ?? Honey and syrups ?? Pretzels ?? Popcorn prepared with allowed oils ?? Low fat frozen yogurt ?? Popsicles Avoid: ?? Coconut ?? Chocolate ?? Commercial cakes, pies, cookies, and ice cream ?? Desserts prepared with whole milk, saturated fats, cheese, and/or egg yolks ?? [place] chips ?? Potato chips and other snack chip ?? Commercial and microwave popcorn prepared with undesirable oils ?? Coffee jeyson (unless made with polyunsaturated fats) Understanding USDA MyPlate The USDA (US Department of Agriculture) has guidelines to help you make healthy food choices. Theseare called MyPlate. MyPlate shows the food groups that make up healthy meals using the image of a place setting. Before you eat, think about the healthiest choices for what to put onto your plate or into your cup or bowl. To learn more about building a healthy plate, visit www.choosemyplate.gov. The Food Groups ?? Fruits: Any fruit or 100% fruit juice counts as part of the Fruit Group. Fruits may be fresh, canned, frozen, or dried, and may be whole, cut-up, or pureed. Make half your plate fruits and vegetables. ?? Vegetables: Any vegetable or 100% vegetable juice counts as a member of the Vegetable Group. Vegetables may be fresh, frozen, canned, or dried. They can be served raw or cooked and may be whole, cut-up, or mashed. Make half your plate fruits and vegetables. ?? Grains: All foods made from grains are part of the Grains Group. These include wheat, rice, oats, cornmeal, and barley such as bread, pasta, oatmeal, cereal, tortillas, and grits. Grains should omi more than a quarter of your plate. At least half of your grains should be whole grains. ?? Protein: This group includes meat, poultry, seafood, beans and peas, eggs, processed soy products (like tofu), nuts (including nut butters), and seeds. Make protein choices no more than a quarter of your plate. Meat and poultry choices should be lean or low fat. ?? Dairy: All fluid milk products and foods made from milk that contain calcium, like yogurt and cheese are part of the Dairy Group. (Foods that have little calcium, such as cream, butter, and cream cheese, are not part of the group.) Most dairy choices should be low-fat or fat-free. ?? Oils: These are fats that are liquid at room temperature. They include canola, corn, olive, soybean, and sunflower oil. Foods that are mainly oil include mayonnaise, certain salad dressings, and soft margarines. You should have only 5 to 7 teaspoons of oils a day. You probably already get this much from the food you eat. Use MyShape to Help Build Your Meals The [employer] can help you plan and track your meals and activity. You can look up individual foods to see or compare their nutritional value. You can get guidelines for what and how much you should eat. You can compare your food choices. And you can assess personal physical activities and see ways you can improve. Go to www.XOJETplate.gov/Own Productscker/. Eating Heart-Healthy Food: Using the DASH Plan Eating for your heart doesn?t have to be hard or boring. You just need to know how to make healthier choices. The DASH eating plan has been developed to help you do just that. DASH stands for DietaryApproaches to Stop Hypertension. It is a plan that has been proven to be healthier for your heart and to lower your risk for high blood pressure. It can also help lower your risk for cancer, heart disease, osteoporosis, and diabetes. Choosing from Each Food Group Choose foods from each of the food groups below each day. Try to get the recommended number of servings for each food group. The serving numbers are based on a diet of 2,000 calories a day. Talk to your doctor if you?re unsure about your calorie needs. Along with getting the correct servings, the DASH plan also recommends a sodium intake less than 2,300 mg per day. Grains Servings: 6-8 a day A serving is: ?? 1 slice bread ?? 1 ounce dry cereal ?? Half a cup cooked rice, pasta or cereal Best choices: Whole grains and any grains high in fiber. Vegetables Servings: 4-5 a day A serving is: ?? 1 cup raw leafy vegetable ?? Half a cup cut-up raw or cooked vegetable ?? Half a cup vegetable juice Best choices: Fresh or frozen vegetables prepared without added salt or fat. Fruits Servings: 4-5 a day A serving is: ?? 1 medium fruit ?? One-quarter cup dried fruit ?? Half a cup fresh, frozen, or canned fruit ?? Half a cup of 100% fruit juices Best choices: A variety of fresh fruits of different colors. Whole fruits are a better choice than fruit juices. Low-fat or Fat-free Dairy Servings: 2-3 a day A serving is: ?? 1 cup milk ?? 1 cup yogurt ?? One and a half ounces cheese Best choices: Skim or 1% milk, low-fat or fat-free yogurt or buttermilk, and low-fat cheeses. Lean Meats, Poultry, Fish Servings: 6 or fewer a day A serving is: ?? 1 ounce cooked meats, poultry, or fish ?? 1 egg Best choices: Lean poultry and fish. Trim away visible fat. Broil, grill, roast, or boil instead offrying. Remove skin from poultry before eating. Limit how much red meat you eat. Nuts, Seeds, Beans Servings: 4-5 a week A serving is: ?? One-third cup nuts (one and a half ounces) ?? 2 tablespoons nut butter or seeds ?? Half a cup cooked dry beans or legumes Best choices: ?Dry roasted? nuts with no salt added, lentils, kidney beans, garbanzo beans, and whole kraft beans. Fats and Oils Servings: 2-3 a day A serving is: ?? 1 teaspoon vegetable oil ?? 1 teaspoon soft margarine ?? 1 tablespoon mayonnaise ?? 2 tablespoons salad dressing Best choices: Nut and vegetable oils (nontropical vegetable oils), such as olive and canola oil. Sweets Servings: 5 a week or fewer A serving is: ?? 1 tablespoon sugar, maple syrup, or honey ?? 1 tablespoon jam or jelly ?? 1 half-ounce jelly beans (about 15) ?? 1 cup lemonade Best choices: Dried fruit can be a satisfying sweet. Choose low-fat sweets. And watch your serving sizes! For more on the DASH eating plan, visit: www.nhlbi.nih.gov/health/health-topics/topics/dash * Can Alex - Brooklyn Duron RN - 05/15/2024 10:45 AM EDT Images from the original note were not included. [address] Recovery From Heart Surgery: The First Few Weeks During the first few weeks after heart surgery, you?ll be regaining your energy and strength. Your health care provider will let you know what you can and can?t do as you get better. Take things slowly. And rest when you get tired. Walking Walking is one of the easiest and best ways to help yourself get better. When you walk, your legs pump blood to your heart. This improves blood flow throughout your body. Choose a safe place with a level surface. A local park or a mall are good choices. Start by walking for 5 minutes. Walk a littlelonger each day. And walk with a friend if you can. Driving Your body needs to heal before you drive. Your reflexes will be slow for a while. And some of your medicines can make you drowsy. Let others drive until your surgeon says you can drive again. Wear your seat belt when you are in a car. Lifting For the first 6 weeks, don?t lift, push, or pull more than 10 pounds ( 4.5 kg). Your health care provider may give you specific limits on how much you can lift. Follow their instructions. Showering You may feel weak the first few times you shower at home. Ask someone to stand nearby in case you need help. Don't use very hot water. It can affect your blood flow and make you dizzy. Working Your health care provider can advise you about the best plan for returning to work. You may be ableto return part-time to a desk job 6 weeks after your surgery. If you have a more active job, check with your surgeon. Sexual activity Sex is generally safe for most people within 2 to 4 weeks after uncomplicated CABG (coronary arterybypass graft) surgery. Talk with your surgeon about when it's safe for you to resume sexual activity. Your feelings It is common to feel a little depressed or frustrated while healing after major surgery. You might feel cheerful and energetic one day. And you may feel cranky and tired the next. You may find it hard to think clearly or to sleep. Or you may not be hungry. These things will get better soon. Try notto withdraw from your family and friends. Keep talking to, listening to, and supporting each other. What to watch for Watch for any signs of infection at your incision site. These include: ?? Fever ?? Chills ?? Redness ?? Drainage ?? Foul-smelling odor ?? Pain that gets worse Call your health care provider if any of these occur. Your provider will show you how to take your pulse. Call your provider right away if you develop a fast, slow, or irregular heartbeat. You may have low blood pressure if you become dizzy but feel better when you sit down. Have someone take your blood pressure or call your provider. If you don't feel better with sitting down, call 911 as noted below. Call 911 Call 911 if any of these occur: ?? New or unusual chest pain or a return of the heart symptoms you had before surgery ?? New or unusual shortness of breath ?? Feeling dizzy or lightheaded, or passing out ?? Pulse (heartbeat) is fast (more than 120 beats per minute) or slow (fewer than 50 beats per minute). Or your pulse is irregular, has extra beats, or skips beats. ?? Heavy bleeding from the incision site, or bleeding that doesn't stop Last Reviewed Date: 2024 00:00:00 ?? [id number] [employer]. All rights reserved. This information is not intended as a substitute for professional medical care. Always follow your healthcare professional's instructions. * Can Alex - Brooklyn Duron RN - 05/15/2024 10:45 AM EDT Images from the original note were not included. 86404 Eating Heart-Healthy Foods Eating has a big impact on your heart health. In fact, eating healthier can improve several of yourheart risks at once. For instance, it helps you manage weight, cholesterol, and blood pressure. Here are ideas to help you make heart- healthy changes without giving up all the foods and flavors you love. Getting started ?? Talk with your healthcare provider about eating plans, such as the DASH or Mediterranean diet. You may also be referred to a dietitian. Ask a partner, family member, or friend to join you for mutual support. ?? Change a few things at a time. Give yourself time to get used to a few eating changes before adding more. ?? Work to create a tasty, healthy eating plan that you can stick to for the rest of your life. Goals for healthy eating Below are some tips to improve your eating habits: ?? Limit saturated fats and trans fats. Saturated fats raise your levels of cholesterol, so keep these fats to a minimum. They are found in foods such as fatty meats, whole milk, cheese, and palm andcoconut oils. Avoid trans fats because they lower good cholesterol as well as raise bad cholesterol. Trans fats are most often found in processed foods, such as pastries, cookies, pies, muffins, fried foods, stick margarines, and shortening. ?? Reduce how much sodium (salt) you have. Eating too much salt may increase your blood pressure. Limit your sodium intake to 2,300 milligrams (mg) per day (the amount in 1 teaspoon of salt), or lessif your healthcare provider recommends it. Dining out less often and eating fewer processed foods are two great ways to decrease the amount of salt you consume. At home, flavor your foods with other spices and herbs instead of salt. ?? Managing calories. A calorie is a unit of energy. Your body denney calories for fuel, but if you eat more calories than your body denney, the extras are stored as fat. Your healthcare provider or dietitian can help you create a diet plan to manage your calories. This will likely include eating healthier foods and getting regular exercise. To help you track your progress, keep a food diary to record what you eat and how often you exercise. Choose the right foods Aim to make these foods sheridan of your diet. If you have diabetes, you may have different recommendations than what is listed here: ?? Fruits and vegetables provide plenty of nutrients without a lot of calories. At meals, fill halfyour plate with these foods. Choose between fresh, frozen, canned, or dried fruits and vegetables without added sauces, salt, or sugars. Split the other half of your plate between whole grains and lean protein. ?? Whole grains are high in fiber and rich in vitamins and nutrients. Good choices include whole-wheat bread, pasta, oats, and brown rice. Make at least half of your grains whole grains. ?? Lean proteins give you nutrition with less fat. Good choices include fish, skinless chicken and turkey, and beans. Draining the fat from cooked ground meat is another way to reduce the amount of fat you eat. ?? Low-fat and nonfat dairy provide nutrients without a lot of fat. Try low-fat or nonfat milk, cheese, or yogurt. ?? Healthy fats can be good for you in small amounts. These are unsaturated fats, such as olive oil, avocado, nuts, and fish. Try to have at least 2 servings per week of fatty fish, such as salmon, sardines, mackerel, rainbow trout, and albacore tuna. These contain omega-3 fatty acids, which are good for your heart. Flaxseed and walnuts are other sources of heart-healthy fats. More on heart-healthy eating Read food labels Healthy eating starts at the grocery store. Be sure to pay attention to food labels on packaged foods. Look for products that are high in fiber and protein and low in saturated fat, added sugars, andsodium. Avoid products that contain trans fat. And pay close attention to serving size. For instance, if you plan to eat 2 servings, double all the numbers on the label. Prepare food right A rico part of healthy cooking is cutting down on added fat, sugar, and salt. Look on the Internet for lower-fat, lower-sodium recipes without a lot of added sugars. Also try these tips: ?? Remove fat from meat and skin from poultry before cooking. ?? Skim fat from the surface of soups and sauces. ?? Broil, roast, boil, bake, steam, grill, or microwave food without added fats. ?? Choose ingredients that spice up your food without adding calories, fat, sugar, or sodium. Try these items: horseradish, hot sauce, lemon zest and juice, garlic, onion, mustard, nonfat salad dressings, and vinegar. Small amounts of olive oil-based vinaigrettes are OK, too. For salt-free herbs and spices, try basil, cilantro, cinnamon, cumin, paprika, pepper, and darion. Last Reviewed Date: 2022 00:00:00 ?? [id number] [employer]. All rights reserved. This information is not intended as a substitute for professional medical care. Always follow your healthcare professional's instructions. * [facility] Brooklyn Duron RN - 05/15/2024 10:45 AM EDT Images from the original note were not included. 1548 After Sternotomy: General Safety You need to protect your chest until it heals. Follow these rules 6-8 weeks after surgery, unless your doctor tells you otherwise. Basic safety steps: 1. When you move, keep your arms as close to your body as you can. 2. Do not push or pull with your arms. 3. Do not lift over 5-10 pounds. For example, a gallon of milk weighs about 10 pounds. 4. You can move your arms through your full range of motion. How to get out of bed Step 1: Lay flat with your arms crossed. Step 2: Roll to either side. Step 3: Kick your legs off the bed. Dig your elbow into the bed and use your stomach to start to sit. Step 4: Keep your arms across your chest as you move to sit. Step 5: Rest your arms on the bed next to your hips. OR rest your arms on your thighs. Step 6: Stand up. Do not use your hands! Do not do these moves when you get out of bed. Do not pull on a bed rail to sit up or lay down. Do not push up on the bed to stand with arms away from body. Do not pull on the bed rails to scoot. Do not do these when someone helps you get out of bed. Do not pull up with your arms to get out of bed. Do not pull up with the arms to get up or stand. How to open a door Correct Your arm should stay close to your body. Incorrect Do not move your arm away from your body to pull. How to walk with a cane Correct Keep your elbow close to your body. Incorrect Do not move your elbow away from your body. How to carry a bag Correct Keep your elbow close to your body. Incorrect Do not move your elbow away from your body. Correct Keep your elbow close to your body. Incorrect Do not move your elbow away from your body. How to use a wheelchair Correct Keep your elbows close to your body to propel the wheelchair. Incorrect Do not propel the wheelchair with your elbows away from your body. How to get in and out of a chair Correct Keep your elbows close to your body. Place your hands next to your thighs to push to stand. Incorrect Do not push up with your elbows away from your body. How to move from a chair to a walker Correct Option 1: Keep walker close. Place your hands on the seat next to your thighs. Keep your arms closeto your body as you push up. Option 2: Place your hands on your thighs. Keep your arms close to your body as you push up. Incorrect Do not pull up with one hand on the walker and push up with the other hand on the chair. Do not pull up or push up with your arms away from your body. How to get up from the toilet Correct Step 1: Place your hands on the seat close to your thighs. Step 2: Keep your arms close to your body as you push up. Step 3: Keep arms close to your body as you stand. Correct - with bedside commode Step 1: Place your hands on the seat close to your thighs. Step 2: Keep your arms close to your body as you push up. Step 3: Keep arms close to your body as you stand. Incorrect Do not push up with your arms away from your body. Do not push or pull with your arms away from your body. * Can Alex - Brooklyn Duron RN - 05/15/2024 10:45 AM EDT Images from the original note were not included. 74005 After Bypass Surgery: Getting Up and Out of Bed After coronary artery bypass surgery, it's important to protect your incision and healing breastbone. Move carefully as you get up from sitting or as you get out of bed. Getting up from sitting When you get up from a chair or couch, use your leg muscles, not your arms, to push your body up. To stand up: 1. Scoot to the front of the chair. 2. Place one foot slightly in front of the other. 3. Put your hands on your thighs. 4. Bend forward from the hips and push your body up with your legs. To sit down, use your leg muscles to lower yourself onto the front of the chair. Then use your leg muscles, not your arms, to scoot back. Getting out of bed When you get in and out of bed, keep your shoulders and hips in line. Also when you're getting out of bed, roll over to your side rather than trying to sit straight up. To get out of bed: ?? Lie on your back and slowly scoot to the edge of the bed. ?? Bend your knees slightly and roll slowly onto your side. ?? Keep your upper arms close to the sides of your body. This can help prevent excess stress on your breastbone (sternum). Place your hands in front of your body and lean slightly forward. ?? Let your legs move slowly off the edge of the bed to the floor. ?? At the same time, as your legs gently swing to the floor, let the motion help raise your upper body to a sitting position. ?? Sit for a moment. This will help keep you from getting dizzy. ?? Put your hands on your thighs. Bend forward from the hips and push your body up with your legs. ?? Don't use your arms to push up. This is to prevent putting weight on your arms. To get into bed, do the reverse. Before you leave the hospital, your health care provider will show you how to get in and out of bed. And they will show you how to stand up from a sitting position. They will teach you the correct method for body alignment. And they will teach you movements to stay away from, such as pulling to theside and twisting, or pushing and pulling with your arms. When you go home, try to have someone there who knows how to do this, such as a friend, a family member, or a caregiver. This is for your support and safety. Ask your health care provider questions if you are unsure about what to do. Last Reviewed Date: 2024 00:00:00 ?? [id number] [employer]. All rights reserved. This information is not intended as a substitute for professional medical care. Always follow your healthcare professional's instructions. * [facility] - Brooklyn Duron RN - 05/15/2024 10:45 AM EDT Images from the original note were not included. 60720 After Bypass Surgery: Reaching, Bending, and Lifting Moving carefully During your first few weeks at home, you need to move carefully. This is because your breastbone (sternum) was cut during surgery. The bone takes about 6 to 8 weeks to grow back together. It won't come apart if you move the wrong way. But you may feel pain around the cuts (incisions) or hear a clicking sound in your chest. These are warning signs to move more carefully. Follow the tips below to help prevent straining your breastbone. Reaching Until your breastbone heals, twisting your upper body can be painful. When you reach for something,follow these steps: 1. Turn with your entire body so that you face the object. 2. Step close to it. 3. Lean forward from the waist to pick it up. If you need anything that is above your shoulders, ask someone to get it for you. Bending and lifting For the first few weeks, keep the things you use most, such as clothing and dishes, at waist level.If you must bend down to lift something light, follow these steps: ?? Stand close to the object. ?? Put your feet shoulder-width apart, with one foot slightly in front of the other. ?? Hold on to something sturdy with one hand. ?? Bend at the knees. Keep your back and neck straight and your shoulders and hips in line. ?? vacuum metalizing supervisor the object and hold it close to your body. ?? Slowly push up with your legs. Don't do heavy lifting, pushing, or pulling. If you need anything that weighs more than 5 to 10 pounds or that is on the floor, ask someone to get it for you. Stop any activity if you have shortness of breath, chest pain, irregular heartbeat, or dizziness. Call your health care provider right away, unless they gave you other directions. Last Reviewed Date: 2024 00:00:00 ?? [id number] [employer]. All rights reserved. This information is not intended as a substitute for professional medical care. Always follow your healthcare professional's instructions. * Discharge Instr - Other Orders - Brooklyn Duron RN - 05/15/2024 10:37 AM EDT Please arrive 30 minutes early for your appointment with Dr. Austin Prior to your appointment, go to the radiology department on the 1st floor of the [facility] near [facility] for a chest x-ray. Then go to the lab on the 2nd floor for blood work. Then come to our office on the 3rd floor. Please bring your BOTTLES of medications and parking ticket in for validation. * Discharge Instr - Diet - Brooklyn Duron RN - 05/15/2024 10:37 AM EDT Your food may taste funny. This is normal after surgery, and it WILL go away. Follow a heart healthy diet. (Information included) * Discharge Instr - Activity - Brooklyn Duron RN - 05/15/2024 10:36 AM EDT Take a shower every day. Use a clean washcloth on your incisions every day. Wash your incisions before you wash anywhere else on your body. Do NOT use Neosporin, Peroxide, Betadine or other ointments on your incisions. Do NOT lift, push or felt puller 5 pounds for six [address] until your physician gives you approval. Move around as you are able. No activity that tires you out. You can sleep on your side if it is comfortable. You can ride in the front seat of the car. You canraise both arms at the same time. * Discharge Instr - AVS First Page - Brooklyn Duron RN - 05/15/2024 10:36 AM EDT Temperature 101.5 or greater. Incisions coming open or draining pus. Pain not relieved by medications. Increased shortness of breath. Increased swelling. For questions or concerns, please contact??? Brooklyn Duron RN [phone] Tuesday through Tuesday 7am- 3:30pm [facility] [phone] after 3:30 pm, weekends and holidays - ask for the CT surgeon relocation director. * Progress Notes - Pari Lindo PTA - 05/15/2024 9:18 AM EDT Physical Therapy Treatment Patient Name: Rere Hunter Today's Date: 05/15/2024 PT Discharge Recommendations: Acute rehab Equipment Recommended: Defer to facility Subjective The patient states, I am tired this morning. Participants in Care Family/Caregiver Present: No Tester Equipment: Not Applicable Presentation Oxygen: None (Room air) Telemetry: Yes Lines and Tube: NG/OG [place] Sump 14 Fr Right nostril (Active) Peripheral IV 05/12/24 Anterior;Left Forearm (Active) Peripheral IV 05/12/24 Anterior;Left;Proximal Forearm (Active) Pre-Session: Sitting in chair, Lines intact Post-Session: Sitting in chair, Call light in reach, Lines intact, Chair alarm, RN notified Patientpositioned for comfort and pressure relief. Precautions Medical Precautions: Fall precautions, Sternal Objective Pain No complaints of pain; patient complaining of being anxious RN made aware; Delirium Screening Urban Agitation Sedation Scale (RASS): Alert and calm Confusion Assessment Method-ICU (CAM-ICU/PCAM-ICU) Feature 3: Altered Level of Consciousness: Negative Therapeutic Activity (23 minutes) Verbal, visual, and tactile cues provided throughout treatment session for self- pacing, fall prevention, pursed lip breathing and adherence to sternal precautions. Therapist monitored patient's vitalsigns during session to assess patient's continued tolerance to activity. Vital signs stable. Please see transfer section for further details. Transfers Transfer Intervention: Verbal cues provided for correct bilateral hand and foot placement during sit to stand transfers. Transfer Interventions: The patient completed multiple sit to stand transfers on this date; the patient fatigued easily with transfers and required frequent rest breaks. Transfer Exam: Sit to stand Level of Harmon: Contact guard Physical/Nonphysical Assist: Verbal Cues, Set-up required Assistive Device: Rollator Transfer Exam: Stand to Sit Level of Harmon: Contact guard Physical/Nonphysical Assist: Verbal Cues, Set-up required Assistive Device: Rollator Toilet Transfer Level of Harmon: Minimum assist (75% patient's effort) Physical/Nonphysical Assist: Additional assist utilized for safety, Verbal Cues, Set-up required Type of Transfer: Ambulation, To toilet Assistive Device: Rollator Gait Training (15 minutes) Device: Rollator Apparatus: Chair follow Assistance: Minimum assistance, Minimal verbal cues, Moderate tactile cues Distance: 60ft + 60ft; 1 prolonged seated rest break due to fatigue Gait Analysis: shuffling gait, narrow JACI, inconsistent foot placement, decreased gait speed, difficulty managing rollator during ambulation Gait Training Interventions: Verbal cues provided for upright posture, increased stride, improved bilateral foot clearance, safe rollator management and increased body awareness related to walker position. Assessment The patient fatigued easily with all activities, especially with gait training and requires frequent seated rest breaks. The patient requires cues to adhere to sternal precautions. The patient received cues for safe/improved quality of gait pattern and safe walker management. The patient demonstrates an unsteady gait pattern. The patient continues to require assistance with bed mobility, transfers and gait training. The patient is a fall risk. The patient is unable to safely ambulate household distances. The patient is most appropriate for acute rehab at this time. The patient continues to present with the following impairments: decreased strength, decreased balance, decreased activity tolerance and decreased safety awareness. The patient will continue to benefit from skilled PT services to address deficits listed to decrease fall risk and maximize functional mobility levels to promote a safe return to the home. PT Recommendations Discharge Destination: Acute rehab Discharge Equipment: Defer to facility Plan Continue with established PT plan of care 2 - 5 times per week to progress towards PT goals. PT Goals PT GOAL DETAILS Goal Established Date Time Frame Goal Status PT Goal 1: Pt will perform supine<>sit transfers with CGA and HOB flat, no use of bed rails. 05/07/24 2 weeks PT Goal 2: Pt will perform sit to stand and bed to chair transfers with Stefan and LRD. 05/07/24 2 weeks PT Goal 3: Pt will ambulate >600ft with Stefan and LRD. 05/07/24 2 weeks PT Goal 4: Pt will safely ascend/descend 3 steps with SBA, one handrail. 05/07/24 2 weeks Written by Pari Lindo PTA on 05/15/24 at 11:55 AM. * Progress Notes - Edson Reed MD - 05/15/2024 6:50 AM EDT Rere Hunter Patient was seen and examined with resident physicians and CCM. Morning chest x- ray reviewed. Labs in last 18 hours CBC WBC 28.49 (H) Hb 8.9 (L) Plt 402 (H) Hct 26.5 (L) ANC ?? INR ??, PTT ??, Anti-Xa ?? BMP Na 145 Cl 111 (H) BUN 17 Glu 99 K 3.3 (L) Co2 22 Cr 0.90 Ca 7.3 (L) iCa ?? Mg 1.9, Phos 3.9 Lactate ?? LFT AST 68 (H) AlkPhos 129 (H) T Prot 5.7 (L) ALK 20 Bili 1.0 Alb ?? D.Bili ?? aspirin, 81 mg, Oral, Daily atorvastatin, 80 mg, Oral, Nightly bisacodyl, 10 mg, Rectal, BID buPROPion, 150 mg, Nasogastric, BID citalopram, 40 mg, Oral, Daily docusate sodium, 100 mg, Oral, BID esomeprazole, 40 mg, Oral, Daily before breakfast guanFACINE, 1 mg, Oral, Daily heparin (porcine), 5,000 Units, Subcutaneous, q8h ipratropium-albuterol, 3 mL, Nebulization, q6h RT lidocaine, 2 patch, Apply externally, q24h melatonin, 6 mg, Oral, Nightly metoprolol tartrate, 50 mg, Oral, BID nystatin, 4 mL, Swish & Swallow, 4x daily polyethylene glycol, 17 g, Oral, Daily potassium chloride, 40 mEq, Oral, q4h primidone, 50 mg, Oral, BID senna, 17.2 mg, Oral, Nightly dextrose 5 % and lactated Ringer's, 75 mL/hr, Last Rate: 75 mL/hr (05/15/24 0600) Visit Vitals BP 106/60 Pulse 99 Temp 37.1 ??C (98.7 ??F) (Oral) Ht 1.549 m (5' 0.98 ) Wt 60.4 kg (133 lb 2.5 oz) SpO2 97% BMI 25.17 kg/m?? Intake/Output Summary (Last 24 hours) at 05/15/2024 0650 Last data filed at 05/15/2024 0600 Gross per 24 hour Intake 2270 ml Output 750 ml Net 1520 ml Physical Exam Vitals reviewed. Constitutional: Appearance: She is not ill-appearing. HENT: Head: Normocephalic and atraumatic. Right Ear: External ear normal. Left Ear: External ear normal. Nose: Nose normal. Mouth/Throat: Mouth: Mucous membranes are moist. Pharynx: Oropharynx is clear. Eyes: Extraocular Movements: Extraocular movements intact. Pupils: Pupils are equal, round, and reactive to light. Cardiovascular: Rate and Rhythm: Normal rate and regular rhythm. Pulmonary: Effort: Pulmonary effort is normal. No respiratory distress. Abdominal: General: There is no distension. Palpations: Abdomen is soft. Comments: NGT Musculoskeletal: Right lower leg: Edema present. Left lower leg: Edema present. Skin: General: Skin is warm and dry. Neurological: General: No focal deficit present. Mental Status: She is alert and oriented to person, place, and time. Psychiatric: Mood and Affect: Mood normal. Behavior: Behavior normal. Sternal incision: clean, dry, intact Leg incision: clean, dry, intact Impression & Plan 53 yrs female who underwent 4v CABG on 05/06/[address] Austin. -ASA, statin, BB -NGT, clamp trial today; touch base with general surgery for NGT removal and diet advancement -NPO, ice chips for comfort -nystatin swish and swallow for thrush -mIVF -DVT ppx -pt/ot, mobilize -Transfer to telemetry * Progress Notes - Betty Casas - 05/14/2024 3:20 PM EDT Occupational Therapy Treatment Patient Name: Rere Hunter Today's Date: 05/14/2024 OT Discharge Recommendations: Acute rehab Equipment Recommended: Defer to facility Subjective I need to rest right now. Participants in Care Family/Caregiver Present: No Presentation Oxygen Therapy: None (Room air) Lines and Tubes: Telemetry NG/OG [place] Sump 14 Fr Right nostril (Active) Peripheral IV 05/12/24 Anterior;Left Forearm (Active) Peripheral IV 05/12/24 Anterior;Left;Proximal Forearm (Active) Pre-Session: Lines intact, Supine, Head of bed elevated Pre-Session Comments: RN agreeable to session. Post-Session: Sitting in chair, RN notified, Lines intact, Call light in reach Post-Session Comments: Pt positioned for comfort. All needs met/within reach. Lights on, music, andblinds open. Precautions Medical Precautions: Fall precautions, Sternal Objective Pain Pt reporting sternal pain: unrated Pillow support provided at end of session and RN aware. Delirium Screening Urban Agitation Sedation Scale (RASS): Alert and calm Confusion Assessment Method-ICU (CAM-ICU/PCAM-ICU) Feature 1: Acute Onset or Fluctuating Course: Positive Feature 2: Inattention: Negative Feature 3: Altered Level of Consciousness: Negative Feature 4: Disorganized Thinking: Positive Overall CAM-ICU/PCAM-ICU: Negative Cognition Cognition Overall Cognitive Status: Impaired Arousal/Alertness: Delayed responses to stimuli Mood/Behavior: Lethargic, Anxious Orientation Level: Oriented X4 Orientation Level Comments: Not oriented to day of the week. Single Step Commands: With increased time, With repetition Multi-Step Commands: With increased time, With repetition Method of Communication: Verbal Safety Judgment: Decreased awareness of need for assistance Awareness of Errors: Assistance required to identify errors made Deficit Awareness: Decreased awareness of deficits Attention Span: Attends with cues to redirect Bed Mobility Bed Mobility Exam: Supine to Sit Level of Harmon: Moderate assist (50% patient's effort) Physical/Nonphysical Assist: Verbal Cues, Nonverbal cues (demo/gestures), Moderate cues, HOB elevated Transfers Transfer Exam: Sit to stand Level of Harmon: Contact guard Physical/Nonphysical Assist: Nonverbal cues (demo/gestures), Verbal Cues, Minimal cues Assistive Device: Rollator Transfer Exam: Stand to Sit Level of Harmon: Contact guard Physical/Nonphysical Assist: Nonverbal cues (demo/gestures), Verbal Cues, Minimal cues Assistive Device: Rollator Self-Care Interventions Self Care/Home Management (ADLs) Time Entry: 25 Self_Care Interventions: Pt lethargic on arrival and initially stating I can't get up, I need to rest. Pt agreeable with education/encouragement. Pt educated on sternal precautions prior to mobility and importance of carryover. Pt verbalized understanding but demonstrated fair(-) carryover. Pt. participated in functional endurance tasks in preparation for high level ADL routines. Pt required mod A to transition to edge of bed and increased time to adjust to postural change. Pt denied dizziness. Pt then completed sit to stand from edge of bed and walked with CGA into hallway. Pt completed navigation tasks at hallway level walking 50ft+100ft+50ft with rollator and CGA. Pt required two standing rest breaks due to fatigue. Pt's HR between 100-106bpm and O2 90% and above while walking. Pt's MAP (74) at start and end of session. Pt most limited by cognition and anxiety during session. OT provided orientation to current day and provided a calendar for May 2024 to reorient to current month/time. Pt left with blinds open, soothing music, and lights on to promote good sleep hygiene and decrease delirium symptoms. Team aware of patient's cognition. Assessment Pt participated in OT session with a focus on ADL retraining. Pt tolerated session with fair energyfor task but limited by endurance and cognition. Pt continues to require significant physical and verbal assistance for all functional transfers and self-care tasks. Pt is at an increased risk of falling secondary to deconditioning and impaired standing balance. Pt continues to benefit from skilledOT services to maximize independence/safety with ADLs and functional mobility. OT Recommendations Discharge Destination: Acute rehab Discharge Equipment: Defer to facility Plan Continue OT POC. Goals OT GOAL DETAILS Goal Established Date Time Frame Goal Status OT Goal 1: Pt will perform functional toilet transfer including entering/exiting bathroom with mod I using DME as needed. 05/07/24 2 weeks OT Goal 2: Pt will perform three consecutive grooming activities standing at the sink with mod I using DME as needed. 05/07/24 2 weeks OT Goal 3: Pt will perform three consecutive LB dressing activities in sitting/standing with mod I using DME/AE as needed. 05/07/24 2 weeks OT Goal 4: Pt will verbalize/demonstrate sternal precautions with 100% accuracy in order to safely participate in her ADL routine. 05/07/24 2 weeks Written by Betty Casas on 05/14/24 at 4:51 PM. * Progress Notes - Cydney Luu MD - 05/14/2024 2:04 PM EDT Procedures 05/14/24 Rere uHnter HPI Rere Hunter is a 53 y.o. female who presents with CAD, multiple vessel. If applicable, patient is s/p Procedure(s) and Anesthesia Type: * CABG, 2 OR MORE VESSELS - General. Patient is 8 Days Post-Op with Cardiothoracic Surgery. Past 24 hours: PM: Ordered Nasopharyngeal respiratory panel and Covid PCR. Large R proximal thigh hematoma seen with noted erythema. Consider beginning abx if signs of infection. AM: 1u pRBC, per CVT. Nystatin swish QID for 7 days. Continued ileus with NGT o/p approximately 1L.Nausea improving. Reassess bowel reg in afternoon. Iron studies ordered. Leukocytosis - afebrile, Nasopharyngeal panel negative, Covid swab negative, leg wound with no s/sx of infection. PPI per bluefor blood tinged NG output Edited by: Cydney Luu MD at 05/14/2024 1405 Lines/Drains/Tubes: Patient Lines/Drains/Airways Status Active Active LDAs Name Placement date Placement time Site Days Peripheral IV 05/12/24 Anterior;Left Forearm 05/12/24 0030 Forearm 2 Peripheral IV 05/12/24 Anterior;Left;Proximal Forearm 05/12/24 0840 Forearm 2 NG/OG Meridian Sump 14 Fr Right nostril 05/11/24 2300 Right nostril 2 GCS: [place] Coma Scale Score: 15 Review of Systems 14 point ROS reviewed and otherwise negative or unobtainable except as noted above or in HPI. Vital signs: Vitals: 05/14/24 1400 BP: 99/58 Pulse: 99 Resp: (!) 28 Temp: 37.2 ??C (99 ??F) SpO2: 94% Intake/Output Summary (Last 24 hours) at 05/14/2024 1406 Last data filed at 05/14/2024 1200 Gross per 24 hour Intake 1119.58 ml Output 775 ml Net 344.58 ml Physical Exam: Sedation was held for the purposes of examination. Physical Exam Labs in last 18 hours: CBC WBC 35.22 (H) Hb 7.2 (L) Plt 352 Hct 22.0 (L) ANC ?? INR ??, PTT ??, Anti-Xa ?? BMP Na 141 Cl 109 (H) BUN 16 Glu 109 (H) K 3.6 Co2 23 Cr 0.89 Ca 7.4 (L) iCa ?? Mg 2.0, Phos 3.6 Lactate ?? LFT AST ?? AlkPhos ?? T Prot ?? ALK ?? Bili ?? Alb ?? D.Bili ?? Imaging as available: === 05/01/24 === XR CHEST 1 VIEW - Narrative - CLINICAL INDICATION: s/p cardiac surgery TECHNIQUE: XR CHEST 1 VIEW COMPARISON: May 13, 2024 FINDINGS: Stable basilar atelectasis. No edema or consolidation. Small left effusion. No pneumothorax. NG tube remains in place. - Impression - Stable exam CRITICAL RESULT: No. COMMUNICATION: Per this written report. Drafted by Edson Ambrose MD on 05/14/2024 10:51 AM Final report signed by Edson Ambrose MD on 05/14/2024 10:52 AM Reviewed and agree with above. Assessment and Plan: This patient is critically ill. 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 DVT pro, remove CT 05/11 ASA/statin/BB Anxiety and depression Yes Overview Addendum 05/13/2024 12:37 PM by Christi Sherman APRN 05/07 Continue home bupropion XL 300 mg daily Continue home citalopram 40 mg daily Continue PRN hydroxyzine 25 mg q6 COPD (chronic obstructive pulmonary disease) ([facility]/HCC) Yes Overview Addendum 05/12/2024 12:27 PM by Christi Sherman APRN 05/07 Duo nebs q6 SPO2 goal >88% On 4LNC 05/08 on 2LNC 05/09 on 2LNC +40 lasix 05/12 ongoing 3L NSTEMI (non-ST elevated myocardial infarction) ([facility]) Yes Overview Addendum 05/11/2024 10:54 AM by Miguel Downey MD Diagnosed at OSH with elevated troponins of 0.05 to 0.23 to 0.16 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, 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 Repeat troponins pending 05/07 POD 1 4V CABG 05/09 EKG ordered and reviewed no signs of ST changes 05/10 ST 105 05/11 ST 100-105 GERD (gastroesophageal reflux disease) Yes Overview Addendum 05/14/2024 2:06 PM by Cydney Luu MD Continue Protonix 40 mg daily 05/07 extubated, no on home PPI dc'd 05/08 pt denies any GERD symptoms 05/09 + PPI for reflux 05/10 docusate, metoclopramide, miralax, senna, simethicone, continue NG to low intermitted, CLD forpt comfort, passing gas 05/11 as above denies reflux today NG clamp trial 05/14 PPI per blue surgery rec for blood tinged NG output Leukocytosis Yes Overview Signed 05/13/2024 12:38 PM by Christi Sherman APRN trending Overweight Yes THOM (obstructive sleep apnea) Yes Overview Addendum 05/09/2024 11:15 AM by Miguel Downey MD 05/07 pt declines home CPAP use 05/08 on 2lNC 05/09 96% on 2lNC S/P CABG x 4 Not Applicable Overview Addendum 05/12/2024 12:26 PM by Christi Sherman APRN 05/06 w/Reda 4 chest tubes (mediastinal x2, left pleural, right pleural) A&V wires SBP <140 Aspirin, statin, beta stacey as clinically appropriate 05/07 epi .03 weaning, holding beta block (epi .03) 05/09 off all gtts NSR continue ICU level of care per CT surg Low cardiac output syndrome (CMS/HCC) Unknown Overview Addendum 05/11/2024 10:55 AM by Miguel Downey MD LVEF 45% Requiring epi 05/07 epi wean currently .03 Epi off 05/09 SBP within goal 05/11 off all gtts SBP within goal Hypertension Unknown Overview Addendum 05/09/2024 10:56 AM by Reyna Mcdonald APRN Requiring nitroglycerin gtt upon arrival to ICU 05/07 off gtts, SBP within goal 05/09: increased metop to 50 BID Hyperkalemia Unknown Overview Addendum 05/12/2024 12:28 PM by Christi Sherman APRN Intro op max 7.3 Received dextrose, insulin, calcium, lasix intra-op Now resolved, pt with hypokalemia requiring replacement Cardiac volume overload Unknown Overview Addendum 05/11/2024 10:55 AM by Miguel Downey MD Diuresis as clinically indicated 05/[address] surg 05/08 +20 lasix 05/09 + [address] surg 05/10 + 40 lasix 05/11 40IV lasix Hypoglycemia Unknown Overview Addendum 05/13/2024 12:40 PM by Christi Sherman APRN - continue to monitor, checking LFTs On d5 LR at 75 Nausea with vomiting Unknown Overview Addendum 05/14/2024 1:59 PM by Cydney Luu MD - post Reglan/ Simethicone for gastric bubble - may need NG placement, continue to monitor 05/10 docusate, metoclopramide, miralax, senna, simethicone, continue NG to low intermitted, CLD forpt comfort, passing gas , + one time dose of compazine 05/11 KUB reviewed dilated seg of small bowel, NG clamp trial, BM 05/10 denies N/V today 05/12 worsening condition with leukocytosis, tachycardia, tachypnea, nausea and abd complaints- sentfor repeat Ct scan and discussed with surgery team 05/13 continued high NG output Anemia Unknown Overview Signed 05/14/2024 2:01 PM by Cydney Luu MD Lab Results Component Value Date HGB 7.2 (L) 05/14/202405/14 iron studies sent, 1u pRBCs Cydney Luu MD Cosigned by Dieudonne Cramer MD at 05/14/2024 2:26 PM EDT Associated attestation - Dieudonne Cramer MD - 05/14/2024 2:26 PM EDT I saw and evaluated the patient. I discussed the case with the resident/fellow and agree with the findings and plan as documented. * Progress Notes - Jayson Estrada MD - 05/14/2024 1:50 PM EDT Surgical ICU Daily Progress Note 05/14/24 Rere Cruz Hugh HPI 53F with history of HTN, HLD, COPD, GERD, tobacco use, and CAD s/p 4v CABG on 05/06. SGE consulted for post-operative ileus. Interval: Continues to have bowel movements, unsure if she is passing much flatus. NGT output is blood tinged. Having some cramping abdominal pain and is still distended. Edited by: Jayson Estrada MD at 05/14/2024 1350 Relevant review of systems was obtained as able and is negative unless stated above in HPI. Vital signs: Visit Vitals BP 110/68 Pulse 102 Temp 37.2 ??C (99 ??F) Resp (!) 32 Ht 1.549 m (5' 0.98 ) Wt (S) 59.2 kg (130 lb 8.2 oz) SpO2 95% BMI 24.67 kg/m?? Smoking Status Every Day BSA 1.6 m?? Intake/Output Summary (Last 24 hours) at 05/14/2024 1350 Last data filed at 05/14/2024 1200 Gross per 24 hour Intake 1314.58 ml Output 925 ml Net 389.58 ml Physical Exam: Physical Exam Vitals reviewed. Constitutional: General: She is not in acute distress. Appearance: She is not toxic-appearing. HENT: Head: Normocephalic and atraumatic. Nose: Comments: NGT in place with blood tinged output Mouth/Throat: Mouth: Mucous membranes are moist. Eyes: Extraocular Movements: Extraocular movements intact. Conjunctiva/sclera: Conjunctivae normal. Cardiovascular: Rate and Rhythm: Tachycardia present. Comments: Appears well perfused. Sternotomy incision Pulmonary: Effort: Pulmonary effort is normal. No respiratory distress. Abdominal: General: There is distension. Palpations: Abdomen is soft. Tenderness: There is abdominal tenderness (mild, RLQ). There is no guarding or rebound. Skin: Coloration: Skin is not jaundiced. Neurological: General: No focal deficit present. Mental Status: She is alert. Psychiatric: Mood and Affect: Mood normal. Behavior: Behavior normal. Lines/Drains/Tubes: Patient Lines/Drains/Airways Status Active Airway None Output by Drain (mL) 05/12/24 0700 - 05/12/24 1859 05/12/24 1900 - 05/13/24 0659 05/13/24 0700 - 05/13/24 1859 05/13/24 1900 - 05/14/24 0659 05/14/24 0700 - 05/14/24 1350 Requested LDAs do not have output data documented. Labs in last 18 hours: CBC WBC 35.22 (H) Hb 7.2 (L) Plt 352 Hct 22.0 (L) ANC ?? INR ??, PTT ??, Anti-Xa ?? BMP Na 141 Cl 109 (H) BUN 16 Glu 109 (H) K 3.6 Co2 23 Cr 0.89 Ca 7.4 (L) iCa ?? Mg 2.0, Phos 3.6 Lactate ?? LFT AST ?? AlkPhos ?? T Prot ?? ALK ?? Bili ?? Alb ?? D.Bili ?? Lab Trends: H/H Results from last 7 days Lab Units 05/14/24 0335 05/13/24 0043 05/12/24 0034 HEMOGLOBIN g/dL 7.2* 7.9* 8.4* HEMATOCRIT % 22.0* 23.0* 23.9* INR Cr Results from last 7 days Lab Units 05/14/24 0335 05/13/24 0043 05/12/24 1255 CREATININE mg/dL 0.89 0.98 1.05 Medications reviewed. Vital signs reviewed. Labs reviewed. Radiography reviewed. Assessment and Plan: To Do: - recommend PPI initiation - continue NGT - continue suppositories - SGE will continue to follow Edited by: Jayson Estrada MD at 05/14/2024 1350 Jayson Estrada MD Procedures Cosigned by Tere Snow MD at 05/14/2024 2:21 PM EDT Associated attestation - Tere Snow MD - 05/14/2024 2:21 PM EDT I saw and evaluated the patient with the resident/fellow. I discussed the case with the resident/fellow and agree with the findings and plan as documented. Continued distention Maintain NGT, monitor bowel function Tere Snow MD, FACS sound printer Trauma Acute Care Surgery * Progress Notes - Heather Ram - 05/14/2024 8:48 AM EDT Case Management Adult Progress Note Rere Hunter 53 y.o. female CSN: [id number] Admission: 05/01/2024 11:01 PM Primary Problem: CAD, multiple vessel Anticipated Discharge Date: TBD Has Discharge Plans Changed? No Housing Circumstances: Not Applicable Housing Circumstances Action Taken: Other N/A Additional Comments SW reviewed chart for case updates. Pt is s/p 4vCABG on 05/06/24 and remains in ICU-level of care. Plan to do NGT clamp trial this date. Per MD, pt is not medically ready for DC this date. See medicalnotes for more detail. No further SW concerns identified at this time. SW will monitor pt's progress and will follow up with DC planning and needs as appropriate. NAYA Albarran * Progress Notes - Edson Reed MD - 05/14/2024 6:55 AM EDT Rere Hunter Patient was seen and examined with resident physicians and CCM. Morning chest x- ray reviewed. Labs in last 18 hours CBC WBC 35.22 (H) Hb 7.2 (L) Plt 352 Hct 22.0 (L) ANC ?? INR ??, PTT ??, Anti-Xa ?? BMP Na 141 Cl 109 (H) BUN 16 Glu 109 (H) K 3.6 Co2 23 Cr 0.89 Ca 7.4 (L) iCa ?? Mg 2.0, Phos 3.6 Lactate ?? LFT AST ?? AlkPhos ?? T Prot ?? ALK ?? Bili ?? Alb ?? D.Bili ?? aspirin, 81 mg, Oral, Daily atorvastatin, 80 mg, Oral, Nightly bisacodyl, 10 mg, Rectal, BID buPROPion, 150 mg, Nasogastric, BID citalopram, 40 mg, Oral, Daily docusate sodium, 100 mg, Oral, BID guanFACINE, 1 mg, Oral, Daily heparin (porcine), 5,000 Units, Subcutaneous, q8h ipratropium-albuterol, 3 mL, Nebulization, q6h RT lidocaine, 2 patch, Apply externally, q24h melatonin, 6 mg, Oral, Nightly metoprolol tartrate, 50 mg, Oral, BID nystatin, 5 mL, Swish & Swallow, BID polyethylene glycol, 17 g, Oral, Daily primidone, 50 mg, Oral, BID senna, 17.2 mg, Oral, Nightly simethicone, 80 mg, Oral, 4x daily dextrose 5 % and lactated Ringer's, 75 mL/hr, Last Rate: 75 mL/hr (05/13/243) Visit Vitals BP 131/75 Pulse (!) 122 Temp 37.3 ??C (99.1 ??F) (Axillary) Ht 1.549 m (5' 0.98 ) Wt (S) 59.2 kg (130 lb 8.2 oz) SpO2 97% BMI 24.67 kg/m?? Intake/Output Summary (Last 24 hours) at 05/14/2024 0655 Last data filed at 05/14/2024 0400 Gross per 24 hour Intake 1855.83 ml Output 1175 ml Net 680.83 ml Physical Exam Constitutional: General: She is not in acute distress. HENT: Head: Normocephalic and atraumatic. Right Ear: External ear normal. Left Ear: External ear normal. Nose: Nose normal. Comments: Ngt, bilious output Mouth/Throat: Mouth: Mucous membranes are moist. Eyes: General: No scleral icterus. Extraocular Movements: Extraocular movements intact. Cardiovascular: Rate and Rhythm: Regular rhythm. Tachycardia present. Pulmonary: Effort: Pulmonary effort is normal. No respiratory distress. Abdominal: General: There is distension. Tenderness: There is abdominal tenderness. Musculoskeletal: Cervical back: Normal range of motion. No rigidity. Right lower leg: No edema. Left lower leg: No edema. Skin: General: Skin is warm. Neurological: General: No focal deficit present. Mental Status: She is alert. Mental status is at baseline. Psychiatric: Mood and Affect: Mood normal. Behavior: Behavior normal. Comments: No agitation Sternal incision: dressing applied Leg incision: well approximated Chest tubes -20 suction, ss drainage, no air leak Impression & Plan 53 yrs female who underwent 4v CABG on 05/06/[address] Austin. -ASA, statin -metop 50 BID -NGT, clamp trial today -NPO, ice chips for comfort -nystatin swish and swallow for thrush -mIVF -DVT ppx -pt/ot, mobilize -delirium precautions-frequent reorientation, windows open, no sleeping during the day -Stay ICU -1u pRBC * Progress Notes - Christi Sherman APRN - 05/13/2024 12:32 PM EDT 05/13/24 Rere Hunter HPI Rere Hunter is a 53 y.o. female who presents with CAD, multiple vessel. If applicable, patient is s/p Procedure(s) and Anesthesia Type: * CABG, 2 OR MORE VESSELS - General. Patient is 7 Days Post-Op with Cardiothoracic Surgery. Past 24 hours: PM: NGT in place. Tolerating ice chips. Liquid bowel movements. Okay for PO meds through NGT. AM: continued ileus. Had a bowel movement. WBC continues to increase, procal 1. Pancultured today. Overall improved today from yesterday. Will add nystatin swish and swallow. Edited by: Christi Sherman APRN at 05/13/2024 1232 Lines/Drains/Tubes: Patient Lines/Drains/Airways Status Active Active LDAs Name Placement date Placement time Site Days Peripheral IV 05/12/24 Anterior;Left Forearm 05/12/24 0030 Forearm 1 Peripheral IV 05/12/24 Anterior;Left;Proximal Forearm 05/12/24 0840 Forearm 1 Peripheral IV 05/12/24 Anterior;Proximal;Right Forearm 05/12/24 1600 Forearm less than 1 NG/OG [place] Sump 14 Fr Right nostril 05/11/24 2300 Right nostril 1 GCS: Jaida Coma Scale Score: 15 Review of Systems Constitutional: Negative. HENT: Negative. Eyes: Negative. Respiratory: Negative for shortness of breath. Cardiovascular: Negative for chest pain. Gastrointestinal: Nausea improved, ongoing abd discomfort/ belching Endocrine: Negative. Genitourinary: Negative. Musculoskeletal: Negative for back pain. Skin: Negative. Allergic/Immunologic: Negative. Neurological: Negative for headaches. Hematological: Negative. Psychiatric/Behavioral: Reports she is less anxious, feels lonely Vital signs: Vitals: 05/13/24 1200 BP: 97/65 Pulse: 93 Resp: 25 Temp: SpO2: 94% Intake/Output Summary (Last 24 hours) at 05/13/2024 1232 Last data filed at 05/13/2024 1100 Gross per 24 hour Intake 2597.6 ml Output 1250 ml Net 1347.6 ml Physical Exam Constitutional: Appearance: Normal appearance. HENT: Head: Normocephalic. Nose: Nose normal. Mouth/Throat: Mouth: Mucous membranes are dry. Eyes: Pupils: Pupils are equal, round, and reactive to light. Cardiovascular: Rate and Rhythm: Normal rate and regular rhythm. Pulmonary: Effort: Pulmonary effort is normal. Breath sounds: Normal breath sounds. Abdominal: Comments: NGT with brown outpt, distended, less tender today, hypoactive throughout Musculoskeletal: Cervical back: Normal range of motion. Right lower leg: No edema. Left lower leg: No edema. Skin: General: Skin is warm. Coloration: Skin is pale. Comments: Ecchymosis on legs Neurological: Mental Status: She is alert and oriented to person, place, and time. Psychiatric: Behavior: Behavior normal. Labs in last 18 hours: CBC WBC 37.45 (H) Hb 7.9 (L) Plt 256 Hct 23.0 (L) ANC ?? INR ??, PTT ??, Anti-Xa ?? BMP Na 143 Cl 106 BUN 18 Glu 103 (H) K 3.8 Co2 24 Cr 0.98 Ca 7.7 (L) iCa ?? Mg 2.5 (H), Phos 4.1 Lactate ?? LFT AST 84 (H) AlkPhos 136 (H) T Prot 5.5 (L) ALK 30 Bili 1.1 Alb ?? D.Bili ?? Imaging as available: === 05/01/24 === XR ABDOMEN 1 VIEW - Narrative - CLINICAL INDICATION: ileus TECHNIQUE: XR ABDOMEN 1 VIEW COMPARISON: CT abdomen/pelvis 05/12/2024 FINDINGS: No significant change in diffuse gaseous dilation of the small bowel given differences in technique. There is gas within the nondilated colon and rectum. No definite pneumoperitoneum. Surgical clips in the right upper quadrant. Surgical suture within the left pelvis. Prior CABG and sternotomy. Nasogastric tube tip in the proximal stomach. - Impression - No significant change in probable small bowel ileus since 05/12/2024 given differences in technique. CRITICAL RESULT: No. COMMUNICATION: Per this written report. Drafted by Cass Stoll DO on 05/13/2024 7:32 AM Final report signed by Cass Stoll DO on 05/13/2024 7:35 AM Reviewed and agree with above. Assessment and Plan: This patient is critically ill. 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 DVT pro, remove CT 05/11 ASA/statin/BB Anxiety and depression Yes Overview Addendum 05/11/2024 10:53 AM by Miguel Downey MD 05/07 Continue home bupropion XL 300 mg daily Continue home citalopram 40 mg daily Continue PRN hydroxyzine 25 mg q6 05/08 continue home meds 05/09 continue home meds / pt reports sleeping well overnight 05/10 pt denies anxiety this morning reports sleeping well 05/11 pt anxious at baseline pt reports feeling better today however didn't sleep well last night COPD (chronic obstructive pulmonary disease) ([facility] [place]) Yes Overview Addendum 05/12/2024 12:27 PM by Christi Sherman, [employer] 05/07 Duo nebs q6 SPO2 goal >88% On 4LNC 05/08 on 2LNC 05/09 on 2LNC +40 lasix 05/12 ongoing 3L NSTEMI (non-ST elevated myocardial infarction) (CMS/HCC) Yes Overview Addendum 05/11/2024 10:54 AM by Miguel Downey MD Diagnosed at OSH with elevated troponins of 0.05 to 0.23 to 0.16 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, 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 Repeat troponins pending 05/07 POD 1 4V CABG 05/09 EKG ordered and reviewed no signs of ST changes 05/10 ST 105 05/11 ST 100-105 GERD (gastroesophageal reflux disease) Yes Overview Addendum 05/11/2024 10:54 AM by Miguel Downey MD Continue Protonix 40 mg daily 05/07 extubated, no on home PPI dc'd 05/08 pt denies any GERD symptoms 05/09 + PPI for reflux 05/10 docusate, metoclopramide, miralax, senna, simethicone, continue NG to low intermitted, CLD forpt comfort, passing gas 05/11 as above denies reflux today NG clamp trial Overweight Yes THOM (obstructive sleep apnea) Yes Overview Addendum 05/09/2024 11:15 AM by Miguel Downey MD 05/07 pt declines home CPAP use 05/08 on 2lNC 05/09 96% on 2lNC S/P CABG x 4 Not Applicable Overview Addendum 05/12/2024 12:26 PM by Christi Sherman APRN 05/06 w/Reda 4 chest tubes (mediastinal x2, left pleural, right pleural) A&V wires SBP <140 Aspirin, statin, beta stacey as clinically appropriate 05/07 epi .03 weaning, holding beta block (epi .03) 05/09 off all gtts NSR continue ICU level of care per CT surg Low cardiac output syndrome (CMS/HCC) Unknown Overview Addendum 05/11/2024 10:55 AM by Miguel Downey MD LVEF 45% Requiring epi 05/07 epi wean currently .03 Epi off 05/09 SBP within goal 05/11 off all gtts SBP within goal Hypertension Unknown Overview Addendum 05/09/2024 10:56 AM by Reyna Mcdonald APRN Requiring nitroglycerin gtt upon arrival to ICU 05/07 off gtts, SBP within goal 05/09: increased metop to 50 BID Hyperkalemia Unknown Overview Addendum 05/12/2024 12:28 PM by Christi Sherman APRN Intro op max 7.3 Received dextrose, insulin, calcium, lasix intra-op Now resolved, pt with hypokalemia requiring replacement Cardiac volume overload Unknown Overview Addendum 05/11/2024 10:55 AM by Miguel Downey MD Diuresis as clinically indicated 05/[address] surg 05/08 +20 lasix 05/09 + [address] surg 05/10 + 40 lasix 05/11 40IV lasix Hypoglycemia Unknown Overview Addendum 05/11/2024 10:56 AM by Miguel Downey MD - continue to monitor, checking LFTs - D5 gtt at 50 05/10 d5 to 75ml/hr 05/11 off D5 monitoring CBG NG clamp trial resume diet if <200 Nausea with vomiting Unknown Overview Addendum 05/12/2024 12:21 PM by Christi Sherman APRN - post Reglan/ Simethicone for gastric bubble - may need NG placement, continue to monitor 05/10 docusate, metoclopramide, miralax, senna, simethicone, continue NG to low intermitted, CLD forpt comfort, passing gas , + one time dose of compazine 05/11 KUB reviewed dilated seg of small bowel, NG clamp trial, BM 05/10 denies N/V today 05/12 worsening condition with leukocytosis, tachycardia, tachypnea, nausea and abd complaints- sentfor repeat Ct scan and discussed with surgery team Christi Sherman APRN * Progress Notes - Edson Reed MD - 05/13/2024 9:53 AM EDT Rere Hunter Patient was seen and examined with resident physicians and [facility]. Morning chest x- ray reviewed. Labs in last 18 hours CBC WBC 37.45 (H) Hb 7.9 (L) Plt 256 Hct 23.0 (L) ANC ?? INR ??, PTT ??, Anti-Xa ?? BMP Na 143 Cl 106 BUN 18 Glu 103 (H) K 3.8 Co2 24 Cr 0.98 Ca 7.7 (L) iCa ?? Mg 2.5 (H), Phos 4.1 Lactate ?? LFT AST ?? AlkPhos ?? T Prot ?? ALK ?? Bili ?? Alb ?? D.Bili ?? aspirin, 81 mg, Oral, Daily atorvastatin, 80 mg, Oral, Nightly bisacodyl, 10 mg, Rectal, Daily buPROPion, 150 mg, Nasogastric, BID citalopram, 40 mg, Oral, Daily docusate sodium, 100 mg, Oral, BID guanFACINE, 1 mg, Oral, Daily heparin (porcine), 5,000 Units, Subcutaneous, q8h ipratropium-albuterol, 3 mL, Nebulization, q6h RT lidocaine, 2 patch, Apply externally, q24h melatonin, 6 mg, Oral, Nightly metoprolol tartrate, 50 mg, Oral, BID polyethylene glycol, 17 g, Oral, Daily potassium chloride, 10 mEq, Intravenous, q1h primidone, 50 mg, Oral, BID senna, 17.2 mg, Oral, Nightly simethicone, 80 mg, Oral, 4x daily dextrose 5 % and lactated Ringer's, 75 mL/hr, Last Rate: 75 mL/hr (05/13/24 0836) Visit Vitals BP 110/64 Pulse 94 Temp 37.1 ??C (98.8 ??F) Ht 1.549 m (5' 0.98 ) Wt (S) 60.7 kg (133 lb 13.1 oz) SpO2 94% BMI 25.30 kg/m?? Intake/Output Summary (Last 24 hours) at 05/13/2024 0953 Last data filed at 05/13/2024 0651 Gross per 24 hour Intake 2691.35 ml Output 1950 ml Net 741.35 ml Physical Exam Constitutional: General: She is not in acute distress. HENT: Head: Normocephalic and atraumatic. Right Ear: External ear normal. Left Ear: External ear normal. Nose: Nose normal. Comments: Ngt, bilious output Mouth/Throat: Mouth: Mucous membranes are moist. Eyes: General: No scleral icterus. Extraocular Movements: Extraocular movements intact. Cardiovascular: Rate and Rhythm: Regular rhythm. Tachycardia present. Pulmonary: Effort: Pulmonary effort is normal. No respiratory distress. Abdominal: General: There is distension. Tenderness: There is abdominal tenderness. Musculoskeletal: Cervical back: Normal range of motion. No rigidity. Right lower leg: No edema. Left lower leg: No edema. Skin: General: Skin is warm. Neurological: General: No focal deficit present. Mental Status: She is alert. Mental status is at baseline. Psychiatric: Mood and Affect: Mood normal. Behavior: Behavior normal. Comments: No agitation Sternal incision: dressing applied Leg incision: well approximated Chest tubes -20 suction, ss drainage, no air leak Impression & Plan 53 yrs female who underwent 4v CABG on 05/06/[address] Austin. -ASA, statin -metop 50 BID -NGT LIWS -NPO, ice chips for comfort -nystatin swish and swallow for thrush -mIVF -DVT ppx -remove pacing wires -remove wound vac -pt/ot, mobilize -delirium precautions-frequent reorientation, windows open, no sleeping during the day -Stay ICU * Significant Event - Jayson Estrada MD - 05/13/2024 7:10 AM EDT [facility] ICU Interim Summary Patient seen and examined in cardiac ICU. Reports feeling better today than yesterday. Having liquid BM and passing some flatus. Dark gastric output from NGT, 2L over 24 hours. KUB looks slightly improved. Abdomen distended, but soft. Non-tender. Recommend continuing suppositories Continue NGT, OK for ice chips for comfort [facility]GE will continue to follow Jayson Estrada MD PGY-3 General Surgery Pager #[phone] Cosigned by Rebel Ayala MD at 05/13/2024 1:47 PM EDT Associated attestation - Rebel Ayala MD - 05/13/2024 1:47 PM EDT I saw the abdominal film. There is still some dilated loops but the abdomen is not tender. The think we are making progress with this ileus. * Care Plan - Rey Bee - 05/13/2024 2:02 AM EDT Problem: Mechanical Ventilation Invasive Goal: Optimal Device Function Outcome: Ongoing, Progressing Goal: Absence of Device-Related Skin and Tissue Injury Outcome: Ongoing, Progressing * H&P - Maninder De La Torre DO - 05/12/2024 3:19 PM EDTAssociated Order(s): Inpatient consult to Emergency General Surgery Images from the original note were not included. [facility] Department of Surgery Division of Acute Care / Emergency General Surgery History & Physical Note Requesting Service: CVT Surgery Consult Date: 05/12/2024 Inpatient consult to Emergency General Surgery Consult performed by: Maninder De La Torre DO Consult ordered by: Christi Sherman APRN Reason for consult: Ileus Subjective History of Present Illness: Chief Complaint: Ileus Rere Hunter is a 53 y.o. female, with PMHx of CAD, HTN, COPD, GERD, tremor, anxiety, depression, and tobacco use, who is currently hospitalized following a CABG on 05/06/24. The patient has hadincreasing abdominal pain with nausea and vomiting for the past several days. On 05/[address] abdomen pelvis showing dilated small bowel loops suggestive of ileus or incomplete obstruction. Overnight she had large volume emesis with NG clamp trial, so today they repeated her CT abdomen/pelvis and have consulted us for evaluation. This CT scan wsa officially read as an ileus, and we agree given the fact that there is old contrast which has progressed into the colon. Review of Systems: A 14 point review of systems was reviewed and is negative except as mentioned inthe HPI. History Obtained From: Patient Past Medical History: Medical History[1] Allergies And Reactions: Allergies[2] Past Surgical History: Surgical History[3] Family Medical History: Family History[4] Social History: Social History[5] I have updated and confirmed the past medical, surgical, family and social history. Home Medications: Prior to Admission medications Medication Sig Start Date End Date Taking? Authorizing Provider buPROPion XL (Wellbutrin XL) 300 MG 24 hr tablet take 1 tablet by mouth every 24 hours 04/20/24 Yes Jaden Correa MD citalopram (CeleXA) 40 MG tablet Take 1 tablet (40 mg) by mouth. 12/30/22 Yes Jaden Correa MD Combivent Respimat 20-100 MCG/ACT inhaler 03/07/23 Yes Jaden Correa MD fluticasone (Flonase) 50 MCG/ACT nasal spray Administer 2 sprays into each nostril daily as needed.12/24/23 Yes Jaden Correa MD hydrOXYzine HCl (Atarax) 10 MG tablet Take 1 tablet (10 mg) by mouth every 8 hours as needed. Yes Jaden Correa MD loratadine (Claritin) 10 MG tablet Take 1 tablet (10 mg) by mouth daily. Yes Jaden Correa MD primidone (Mysoline) 50 MG tablet Take 1 tablet (50 mg) by mouth every 12 (twelve) hours. Yes Jaden Correa MD propranolol (Inderal) 20 MG tablet Take 1 tablet (20 mg) by mouth in the morning and 1 tablet (20 mg) before bedtime. 01/17/23 Yes Jaden Correa MD Objective: Visit Vitals BP 120/78 Pulse (!) 115 Temp 36.9 ??C (98.4 ??F) (Axillary) Ht 1.549 m (5' 0.98 ) Wt (S) 60.7 kg (133 lb 13.1 oz) SpO2 90% BMI 25.30 kg/m?? Physical Exam: Physical Exam Constitutional: General: She is not in acute distress. Appearance: Normal appearance. HENT: Head: Normocephalic and atraumatic. Right Ear: External ear normal. Left Ear: External ear normal. Nose: Nose normal. Mouth/Throat: Mouth: Mucous membranes are moist. Eyes: Extraocular Movements: Extraocular movements intact. Pupils: Pupils are equal, round, and reactive to light. Cardiovascular: Rate and Rhythm: Normal rate and regular rhythm. Pulmonary: Effort: Pulmonary effort is normal. Comments: No respiratory distress Abdominal: Comments: Distended abdomen with no rigidity or peritonitis Musculoskeletal: Cervical back: Normal range of motion and neck supple. Comments: Midline incisional wound vac over sternum Skin: General: Skin is warm and dry. Capillary Refill: Capillary refill takes less than 2 seconds. Neurological: General: No focal deficit present. Mental Status: She is alert and oriented to person, place, and time. Laboratory: CBC WBC 32.60 (H) Hb 8.4 (L) Plt 184 Hct 23.9 (L) ANC ?? INR ??, PTT ??, Anti-Xa ?? MCV 86 BMP Na 141 Cl 102 BUN 17 Glu 125 (H) K 3.6 Co2 25 Cr 1.05 Ca 8.1 (L) iCa 4.4 (L) Mg 2.4, Phos 4.0 Lactate ?? LFT AST ?? AlkPhos ?? T Prot ?? ALK ?? Bili ?? Alb ?? D.Bili ?? Imaging: CT Abdomen Pelvis wo IV Contrast Result Date: 05/12/2024 Mild diffuse dilation of the small bowel, likely postoperative ileus Minimal pericolic stranding along the descending colon. This could represent colitis. Correlate with lower GI tract symptoms. CRITICAL RESULT: No. COMMUNICATION: Per this written report. Drafted by Giovanni Shi MD on 05/12/2024 2:09 PM Final report signed by Giovanni Shi MD on 05/12/2024 2:12 PM XR Abdomen 1 View Result Date: 05/12/2024 Nasogastric tube tip in the proximal stomach. Persistent dilated small bowel. CRITICAL RESULT: No. COMMUNICATION: Per this written report. Drafted by Lorri Lopez MD on 05/11/2024 11:59 PM Final report signed by Lorri Lopez MD on 05/12/2024 12:00 AM Radiographic Interpretation: I have reviewed the imaging above and agree with the radiologist interpretation. Assessment/Plan Assessment & Plan: Reer Hunter is a 53 y.o. female with PMHx of CAD, HTN, COPD, GERD, tremor, anxiety, depression, and tobacco use, who is currently hospitalized under the care of the CVT surgery team after having a CABG on 05/06/24. Since surgery she has developed nausea, vomiting, and abdominal pain with imaging findings consistent with ileus. We were consulted for evaluation and assistance in management ofher ileus. The patient's CT scan shows contrast from her previous scan present in the large bowel, so bowel obstruction is very unlikely. This patient's presentation is most consistent with ileus. We recommend continuing NG tube decompression and bisacodyl suppositories BID. Thank you for letting us participate in this patient's care. If any further assistance is needed please page us at [phone]. 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 DVT pro, remove CT 05/11 ASA/statin/BB Anxiety and depression Overview Addendum 05/11/2024 10:53 AM by Miguel Downey MD 05/07 Continue home bupropion XL 300 mg daily Continue home citalopram 40 mg daily Continue PRN hydroxyzine 25 mg q6 05/08 continue home meds 05/09 continue home meds / pt reports sleeping well overnight 05/10 pt denies anxiety this morning reports sleeping well 05/11 pt anxious at baseline pt reports feeling better today however didn't sleep well last night COPD (chronic obstructive pulmonary disease) ([facility] [place]) Overview Addendum 05/12/2024 12:27 PM by Christi Sherman APRN 05/07 Duo nebs q6 SPO2 goal >88% On 4LNC 05/08 on 2LNC 05/09 on 2LNC +40 lasix 05/12 ongoing 3L NSTEMI (non-ST elevated myocardial infarction) ([facility] [place]) Overview Addendum 05/11/2024 10:54 AM by Miguel Downey MD Diagnosed at OSH with elevated troponins of 0.05 to 0.23 to 0.16 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, 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 Repeat troponins pending 05/07 POD 1 4V CABG 05/09 EKG ordered and reviewed no signs of ST changes 05/10 ST 105 05/11 ST 100-105 GERD (gastroesophageal reflux disease) Overview Addendum 05/11/2024 10:54 AM by Miguel Downey MD Continue Protonix 40 mg daily 05/07 extubated, no on home PPI dc'd 05/08 pt denies any GERD symptoms 05/09 + PPI for reflux 05/10 docusate, metoclopramide, miralax, senna, simethicone, continue NG to low intermitted, CLD forpt comfort, passing gas 05/11 as above denies reflux today NG clamp trial Overweight THOM (obstructive sleep apnea) Overview Addendum 05/09/2024 11:15 AM by Miguel Downey MD 05/07 pt declines home CPAP use 05/08 on 2lNC 05/09 96% on 2lNC S/P CABG x 4 Overview Addendum 05/12/2024 12:26 PM by Christi Sherman APRN 05/06 w/Reda 4 chest tubes (mediastinal x2, left pleural, right pleural) A&V wires SBP <140 Aspirin, statin, beta stacey as clinically appropriate 05/07 epi .03 weaning, holding beta block (epi .03) 05/09 off all gtts NSR continue ICU level of care per CT surg Low cardiac output syndrome (CMS/HCC) Overview Addendum 05/11/2024 10:55 AM by Miguel Downey MD LVEF 45% Requiring epi 05/07 epi wean currently .03 Epi off 05/09 SBP within goal 05/11 off all gtts SBP within goal Hypertension Overview Addendum 05/09/2024 10:56 AM by Reyna Mcdonald APRN Requiring nitroglycerin gtt upon arrival to ICU 05/07 off gtts, SBP within goal 05/09: increased metop to 50 BID Hyperkalemia Overview Addendum 05/12/2024 12:28 PM by Christi Sherman APRN Intro op max 7.3 Received dextrose, insulin, calcium, lasix intra-op Now resolved, pt with hypokalemia requiring replacement Cardiac volume overload Overview Addendum 05/11/2024 10:55 AM by Miguel Downey MD Diuresis as clinically indicated 05/[address] surg 05/08 +20 lasix 05/09 + [address] surg 05/10 + 40 lasix 05/11 40IV lasix Hypoglycemia Overview Addendum 05/11/2024 10:56 AM by Miguel Downey MD - continue to monitor, checking LFTs - D5 gtt at 50 05/10 d5 to 75ml/hr 05/11 off D5 monitoring CBG NG clamp trial resume diet if <200 Nausea with vomiting Overview Addendum 05/12/2024 12:21 PM by Christi Sherman APRN - post Reglan/ Simethicone for gastric bubble - may need NG placement, continue to monitor 05/10 docusate, metoclopramide, miralax, senna, simethicone, continue NG to low intermitted, CLD forpt comfort, passing gas , + one time dose of compazine 05/11 KUB reviewed dilated seg of small bowel, NG clamp trial, BM 05/10 denies N/V today 05/12 worsening condition with leukocytosis, tachycardia, tachypnea, nausea and abd complaints- sentfor repeat Ct scan and discussed with surgery team CODE STATUS: full code This Consult, Assessment, and Plan has been discussed with Dr. Ayala, Attending Physician Maninder De La Torre DO [1] Past Medical History: Diagnosis Date Anxiety COPD (chronic obstructive pulmonary disease) ([facility] [place]) 05/01/2024 Continue Duo nebs q6 SPO2 goal >88% Depression GERD (gastroesophageal reflux disease) 05/01/2024 Continue Protonix 40 mg daily On mechanically assisted ventilation ([facility] [place]) 05/06/2024 Arrived to ICU intubated 05/07 extubated to 4LNC 05/08 resolved Tobacco use 05/01/2024 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 [5] Social History Tobacco Use Smoking status: Every Day Current packs/day: 0.50 Types: Cigarettes Smokeless tobacco: Never Vaping Use Vaping status: Never Used Substance Use Topics Alcohol use: Not Currently Drug use: Not Currently Cosigned by Rebel Ayala MD at 05/13/2024 1:48 PM EDT Associated attestation - Rebel Ayala MD - 05/13/2024 1:48 PM EDT I saw and evaluated the patient with the resident/fellow. I discussed the case with the resident/fellow and agree with the findings and plan as documented. I saw this patient and I saw the CT. There is some dilated loops but it does not look like there isany bowel in trouble. I think we can watch this and encourage bowel function. Normal electrolytes, minimal opiates, walking, all of these things are good. * Progress Notes - Christi Sherman APRN - 05/12/2024 12:22 PM EDT 05/12/24 Rere Hunter HPI Rere Hunter is a 53 y.o. female who presents with CAD, multiple vessel. If applicable, patient is s/p Procedure(s) and Anesthesia Type: * CABG, 2 OR MORE VESSELS - General. Patient is 6 Days Post-Op with Cardiothoracic Surgery. Past 24 hours: PM: GI distention post NG removal, will assess for need to replace. Simethicone added. Vomiting overnight, NG replaced. May need SGB consult in am. WBC 32K, procal and lipase sent. Tachy this AM, EKGand IV metop AM: 3LNC. OOB to chair this AM. Repeat CT abdomen for possible SBO, NPO until eval complete. Edited by: Christi Sherman APRN at 05/12/2024 1218 Lines/Drains/Tubes: Patient Lines/Drains/Airways Status Active Active LDAs Name Placement date Placement time Site Days Peripheral IV 05/12/24 Anterior;Left Forearm 05/12/24 0030 Forearm less than 1 Peripheral IV 05/12/24 Anterior;Left;Proximal Forearm 05/12/24 0840 Forearm less than 1 NG/OG [place] Sump 14 Fr Right nostril 05/11/24 2300 Right nostril less than 1 Negative Pressure Wound Therapy Sternum 05/06/24 1940 Sternum 5 GCS: Jaida Coma Scale Score: 15 Review of Systems Constitutional: Negative. HENT: Negative. Eyes: Negative. Respiratory: Negative. Cardiovascular: Negative for chest pain. Gastrointestinal: Positive for abdominal distention, abdominal pain, nausea and vomiting. Endocrine: Negative. Genitourinary: Negative. Musculoskeletal: Negative. Skin: Negative. Allergic/Immunologic: Negative. Neurological: Positive for weakness. Hematological: Negative. Psychiatric/Behavioral: The patient is nervous/anxious. Vital signs: Vitals: 05/12/24 1100 BP: 128/71 Pulse: (!) 116 Resp: 23 Temp: SpO2: 95% Intake/Output Summary (Last 24 hours) at 05/12/2024 1233 Last data filed at 05/12/2024 1100 Gross per 24 hour Intake 3097.5 ml Output 1900 ml Net 1197.5 ml Physical Exam Constitutional: Comments: Oob in chair this AM, appears anxious and uncomfortable HENT: Head: Normocephalic. Nose: Nose normal. Mouth/Throat: Mouth: Mucous membranes are dry. Eyes: Pupils: Pupils are equal, round, and reactive to light. Cardiovascular: Rate and Rhythm: Regular rhythm. Tachycardia present. Heart sounds: Normal heart sounds. Pulmonary: Comments: Tachypneic, dec bibasilar Abdominal: Comments: Distended, quiet throughout, NGT with gastric outpt Musculoskeletal: General: Normal range of motion. Cervical back: Neck supple. Skin: General: Skin is dry. Capillary Refill: Capillary refill takes 2 to 3 seconds. Neurological: Mental Status: She is oriented to person, place, and time. Psychiatric: Mood and Affect: Mood normal. Behavior: Behavior normal. Comments: Anxious appearing Labs in last 18 hours: CBC WBC 32.60 (H) Hb 8.4 (L) Plt 184 Hct 23.9 (L) ANC ?? INR ??, PTT ??, Anti-Xa ?? BMP Na 141 Cl 103 BUN 21 Glu 102 (H) K 3.3 (L) Co2 23 Cr 1.13 (H) Ca 8.3 (L) iCa 4.4 (L) Mg 2.0, Phos 3.9 Lactate ?? LFT AST ?? AlkPhos ?? T Prot ?? ALK ?? Bili ?? Alb ?? D.Bili ?? Imaging as available: === 05/01/24 === XR ABDOMEN 1 VIEW - Narrative - CLINICAL INDICATION: NG placement, ileus TECHNIQUE: XR ABDOMEN 1 VIEW COMPARISON: 05/11/2024 FINDINGS: Nasogastric tube tip in the proximal stomach. Persistent gas-filled dilated small bowel. No colonicdistention. No pneumatosis or free air. - Impression - Nasogastric tube tip in the proximal stomach. Persistent dilated small bowel. CRITICAL RESULT: No. COMMUNICATION: Per this written report. Drafted by Lorri Lopez MD on 05/11/2024 11:59 PM Final report signed by Lorri Lopez MD on 05/12/2024 12:00 AM Reviewed and agree with above. Assessment and Plan: This patient is critically ill. 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 DVT pro, remove CT 05/11 ASA/statin/BB Anxiety and depression Yes Overview Addendum 05/11/2024 10:53 AM by Miguel Downey MD 05/07 Continue home bupropion XL 300 mg daily Continue home citalopram 40 mg daily Continue PRN hydroxyzine 25 mg q6 05/08 continue home meds 05/09 continue home meds / pt reports sleeping well overnight 05/10 pt denies anxiety this morning reports sleeping well 05/11 pt anxious at baseline pt reports feeling better today however didn't sleep well last night COPD (chronic obstructive pulmonary disease) (CMS/HCC) Yes Overview Addendum 05/12/2024 12:27 PM by Christi Sherman APRN 05/07 Duo nebs q6 SPO2 goal >88% On 4LNC 05/08 on 2LNC 05/09 on 2LNC +40 lasix 05/12 ongoing 3L NSTEMI (non-ST elevated myocardial infarction) (CMS/HCC) Yes Overview Addendum 05/11/2024 10:54 AM by Miguel Downey MD Diagnosed at OSH with elevated troponins of 0.05 to 0.23 to 0.16 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, 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 Repeat troponins pending 05/07 POD 1 4V CABG 05/09 EKG ordered and reviewed no signs of ST changes 05/10 ST 105 05/11 ST 100-105 GERD (gastroesophageal reflux disease) Yes Overview Addendum 05/11/2024 10:54 AM by Miguel Downey MD Continue Protonix 40 mg daily 05/07 extubated, no on home PPI dc'd 05/08 pt denies any GERD symptoms 05/09 + PPI for reflux 05/10 docusate, metoclopramide, miralax, senna, simethicone, continue NG to low intermitted, CLD forpt comfort, passing gas 05/11 as above denies reflux today NG clamp trial Overweight Yes THOM (obstructive sleep apnea) Yes Overview Addendum 05/09/2024 11:15 AM by Miguel Downey MD 05/07 pt declines home CPAP use 05/08 on 2lNC 05/09 96% on 2lNC S/P CABG x 4 Not Applicable Overview Addendum 05/12/2024 12:26 PM by Christi Sherman, ARASH 05/06 w/Reda 4 chest tubes (mediastinal x2, left pleural, right pleural) A&V wires SBP <140 Aspirin, statin, beta stacey as clinically appropriate 05/07 epi .03 weaning, holding beta block (epi .03) 05/09 off all gtts NSR continue ICU level of care per CT surg Low cardiac output syndrome (CMS/HCC) Unknown Overview Addendum 05/11/2024 10:55 AM by Miguel Downey MD LVEF 45% Requiring epi 05/07 epi wean currently .03 Epi off 05/09 SBP within goal 05/11 off all gtts SBP within goal Hypertension Unknown Overview Addendum 05/09/2024 10:56 AM by Reyna Mcdonald APRN Requiring nitroglycerin gtt upon arrival to ICU 05/07 off gtts, SBP within goal 05/09: increased metop to 50 BID Hyperkalemia Unknown Overview Addendum 05/12/2024 12:28 PM by Christi Sherman APRN Intro op max 7.3 Received dextrose, insulin, calcium, lasix intra-op Now resolved, pt with hypokalemia requiring replacement Cardiac volume overload Unknown Overview Addendum 05/11/2024 10:55 AM by Miguel Downey MD Diuresis as clinically indicated 05/[address] surg 05/08 +20 lasix 05/09 + [address] surg 05/10 + 40 lasix 05/11 40IV lasix Hypoglycemia Unknown Overview Addendum 05/11/2024 10:56 AM by Miguel Downey MD - continue to monitor, checking LFTs - D5 gtt at 50 05/10 d5 to 75ml/hr 05/11 off D5 monitoring CBG NG clamp trial resume diet if <200 Nausea with vomiting Unknown Overview Addendum 05/12/2024 12:21 PM by Christi Sherman APRN - post Reglan/ Simethicone for gastric bubble - may need NG placement, continue to monitor 05/10 docusate, metoclopramide, miralax, senna, simethicone, continue NG to low intermitted, CLD forpt comfort, passing gas , + one time dose of compazine 05/11 KUB reviewed dilated seg of small bowel, NG clamp trial, BM 05/10 denies N/V today 05/12 worsening condition with leukocytosis, tachycardia, tachypnea, nausea and abd complaints- sentfor repeat Ct scan and discussed with surgery team Christi Sherman APRN * Progress Notes - Edson Reed MD - 05/12/2024 9:55 AM EDT Rere Hunter Patient was seen and examined with resident physicians and [facility]. Morning chest x- ray reviewed. Labs in last 18 hours CBC WBC 32.60 (H) Hb 8.4 (L) Plt 184 Hct 23.9 (L) ANC ?? INR ??, PTT ??, Anti-Xa ?? BMP Na 141 Cl 103 BUN 21 Glu 102 (H) K 3.3 (L) Co2 23 Cr 1.13 (H) Ca 8.3 (L) iCa 4.4 (L) Mg 2.0, Phos 3.9 Lactate ?? LFT AST ?? AlkPhos ?? T Prot ?? ALK ?? Bili ?? Alb ?? D.Bili ?? acetaminophen, 1,000 mg, Oral, q8h aspirin, 81 mg, Oral, Daily atorvastatin, 80 mg, Oral, Nightly buPROPion XL, 300 mg, Oral, Daily citalopram, 40 mg, Oral, Daily docusate sodium, 100 mg, Oral, BID guanFACINE, 1 mg, Oral, Daily heparin (porcine), 5,000 Units, Subcutaneous, q8h iohexol, 500 mL, Oral, Once in imaging ipratropium-albuterol, 3 mL, Nebulization, q6h RT lidocaine, 2 patch, Apply externally, q24h magnesium sulfate, 2 g, Intravenous, Once melatonin, 6 mg, Oral, Nightly methocarbamol, 750 mg, Oral, 4x daily metoprolol tartrate, 50 mg, Oral, BID polyethylene glycol, 17 g, Oral, Daily primidone, 50 mg, Oral, BID senna, 17.2 mg, Oral, Nightly simethicone, 80 mg, Oral, 4x daily dextrose 5 % and lactated Ringer's, 75 mL/hr, Last Rate: 75 mL/hr (05/12/24 0900) Visit Vitals BP 118/74 (BP Location: Right arm) Pulse (!) 115 Temp 36.9 ??C (98.4 ??F) (Oral) Ht 1.549 m (5' 0.98 ) Wt (S) 60.7 kg (133 lb 13.1 oz) SpO2 99% BMI 25.30 kg/m?? Intake/Output Summary (Last 24 hours) at 05/12/2024 0955 Last data filed at 05/12/2024 0900 Gross per 24 hour Intake 2547.5 ml Output 2050 ml Net 497.5 ml Physical Exam Constitutional: General: She is not in acute distress. HENT: Head: Normocephalic and atraumatic. Right Ear: External ear normal. Left Ear: External ear normal. Nose: Nose normal. Comments: Ngt, bilious output Mouth/Throat: Mouth: Mucous membranes are moist. Eyes: General: No scleral icterus. Extraocular Movements: Extraocular movements intact. Cardiovascular: Rate and Rhythm: Regular rhythm. Tachycardia present. Pulmonary: Effort: Pulmonary effort is normal. No respiratory distress. Abdominal: General: There is distension. Tenderness: There is abdominal tenderness. Musculoskeletal: Cervical back: Normal range of motion. No rigidity. Right lower leg: No edema. Left lower leg: No edema. Skin: General: Skin is warm. Neurological: General: No focal deficit present. Mental Status: She is alert. Mental status is at baseline. Psychiatric: Mood and Affect: Mood normal. Behavior: Behavior normal. Comments: No agitation Sternal incision: dressing applied Leg incision: well approximated Chest tubes -20 suction, ss drainage, no air leak Impression & Plan 53 yrs female who underwent 4v CABG on 05/06/[address] Austin. -ASA, statin -metop 50 BID -NGT LIWS -NPO, ice chips for comfort -mIVF -general surgery consult for ileus vs obstruction -DVT ppx -keep pacing wires -Continue wound vac -stop narcotics -pt/ot, mobilize -delirium precautions-frequent reorientation, windows open, no sleeping during the day -Stay ICU * Care Plan - Yolanda Peña RN - 05/12/2024 9:00 AM EDT Problem: Adult Inpatient Plan of Care Goal: Plan of Care Review Flowsheets (Taken 05/12/2024 0800) Progress: improving Goal: Absence of Hospital-Acquired Illness or Injury Outcome: Ongoing, Progressing Goal: Optimal Comfort and Wellbeing Outcome: Ongoing, Progressing Goal: Readiness for Transition of Care Outcome: Ongoing, Progressing Problem: Infection Goal: Absence of Infection Signs and Symptoms Outcome: Ongoing, Progressing Problem: Mechanical Ventilation Invasive Goal: Optimal Device Function Outcome: Met Problem: Restraint, Nonviolent Goal: Absence of Harm or Injury Outcome: Met Problem: Self-Care Deficit Goal: Improved Ability to Complete Activities of Daily Living Outcome: Ongoing, Progressing * Consults - Gretchen Brothers RD - 05/11/2024 4:15 PM EDT Adult Nutrition Evaluation Note Rere Hunter 53 y.o. female CSN: [id number] Room/Bed 217/217A Nutrition evaluation type: follow-up Reason for evaluation: provider consult Hospital course: 53 y.o. female presents for CABG evaluation. OR on 05/06. Past medical/ surgical history: Medical History[1] Surgical History[2] Social history: Additional comments: Minimal PO intake recently, diet advancing per protocol. 05/11: Pt reports appetite improving, trying to eat. Pt denied n/v/d/c, denied chewing/swallowing difficulty. Pt denied involuntary wt changes. No feeding tube present. Vitals and Basic Assessment: BP: 103/65 Temp: 36.6 ??C (97.8 ??F) Invasive Ventilator Initiated (ETT/Trach Only): Yes Oxygen Therapy: Supplemental oxygen O2 Delivery Method: Nasal cannula Jaida Coma Scale Score: 15 Shaan Scale Score: 20 Joshua/Cubbin Pressure Risk Score: 45 Most Recent BM Date: 05/11/24 GI Symptoms: Diarrhea Edema: Generalized Allergies: NKFA Medications: acetaminophen, 1,000 mg, Oral, q8h aspirin, 81 mg, Nasogastric, Daily atorvastatin, 80 mg, Nasogastric, Nightly buPROPion, 150 mg, Nasogastric, BID citalopram, 40 mg, Nasogastric, Daily docusate sodium, 100 mg, Nasogastric, BID guanFACINE, 1 mg, Oral, Daily heparin (porcine), 5,000 Units, Subcutaneous, q8h ipratropium-albuterol, 3 mL, Nebulization, q6h RT lidocaine, 2 patch, Apply externally, q24h melatonin, 6 mg, Nasogastric, Nightly methocarbamol, 750 mg, Nasogastric, 4x daily metoclopramide, 10 mg, Intravenous, q6h metoprolol tartrate, 50 mg, Nasogastric, BID polyethylene glycol, 17 g, Nasogastric, Daily primidone, 50 mg, Nasogastric, BID senna, 17.2 mg, Nasogastric, Nightly simethicone, 80 mg, Nasogastric, 4x daily Meds were reviewed: Yes Labs: Lab Results Component Value Date GLUCOSE 89 05/11/2024 CALCIUM 9.1 05/11/2024 NA 142 05/11/2024 K 3.9 05/11/2024 CO2 24 05/11/2024 CL 106 05/11/2024 BUN 22 (H) 05/11/2024 CREATININE 1.18 (H) 05/11/2024 PHOS 4.4 05/11/2024 MG 2.2 05/11/2024 HGBA1C 5.3 05/01/2024 Anthropometrics: Height: 154.9 cm (5' 0.98 ) Weight: 63.1 kg (139 lb 1.8 oz) BMI (Calculated): 26.3 Weight Evaluation: Overweight (BMI 25-29.9) [place] Body Weight (kg): 47.7 Percent [place] Body Weight: 132 Adjusted Body Weight (kg): 52 Estimated Needs: Metabolic Cart Study Results: Current Nutrition Intake: Diet Order: Adult Diet Diet Texture: Clear liquid Adult Carbohydrate Restriction: Consistent CHO 2 (4190-3245 Channing, 80 g/meal) Fat Restriction: Cardiac Percent Meals Eaten (%): 0% 05/07-05/10 Diet Experience and Nutrition History: Diet Education Provided: Will monitor Pertinent home medications: reviewed Gnosticist needs: Nutrition Focused Physical Exam: Physical exam performed on (date): Temples (muscles): None Clavicle (muscle): None Shoulder (muscle): None Interosseous (muscle): None Thigh (muscle): None Calf (muscle): Mild Orbital (fat): None Triceps (fat): None Assessment of Malnutrition: Malnutrition Identified: No Nutrition Problem: Increased nutrient needs protein, calories related to s/p CABG as evidenced by increased metabolic demands of surgical wound healing. Status of Nutrition Diagnosis: New Nutrition Interventions and Recommendations: - Advance diet as medically appropriate -CC2 -Cardiac - Add Impact AR BID when diet advances - Recommend obtaining weight weekly - Please document meal intake in flowsheet Nutrition Monitoring and Goals: - Will monitor PO intake/EN infusion, weight, skin, labs, nutrition status - Pt will consume >75% of meal intake - Pt will maintain body weight throughout hospital admission Acuity Level: [address], LD [1] Past Medical History: Diagnosis Date Anxiety COPD (chronic obstructive pulmonary disease) ([facility] [place]) 05/01/2024 Continue Duo nebs q6 SPO2 goal >88% Depression GERD (gastroesophageal reflux disease) 05/01/2024 Continue Protonix 40 mg daily On mechanically assisted ventilation ([facility] [place]) 05/06/2024 Arrived to ICU intubated 05/07 extubated to [facility] 05/08 resolved Tobacco use 05/01/2024 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 Pt stating that she has not been sleeping well while in the hospital. Participants in Care Family/Caregiver Present: No Tester Equipment: Not Applicable Presentation Oxygen Therapy: Supplemental oxygen O2 Delivery Method: Nasal cannula O2 Flow Rate (L/min): 3 L/min Lines and Tubes: Telemetry Pacer Wires (Active) NG/OG [place] Sump Nasogastric 14 Fr Right nostril (Active) Negative Pressure Wound Therapy Sternum (Active) Peripheral IV 05/08/24 Anterior;Right Forearm (Active) Peripheral IV 05/09/24 Right;Upper Arm (Active) Pre-Session: Sitting in chair, Lines intact Pre-Session Comments: RN agreeable to session. Post-Session: RN notified, Lines intact, Head of bed elevated, Supine, Call light in reach Post-Session Comments: Pt positioned for comfort. All needs met/within reach. Precautions Medical Precautions: Fall precautions, Sternal Objective Pain Pain Score (0-10): 8 Location: incision site at chest Intervention: position adjusted, pillow support provided, and emotional support provided Response: comfortable at end of session Delirium Screening Urban Agitation Sedation Scale (RASS): Alert and calm Confusion Assessment Method-ICU (CAM-ICU/PCAM-ICU) Feature 3: Altered Level of Consciousness: Negative Cognition Cognition Overall Cognitive Status: Within Functional Limits Arousal/Alertness: Delayed responses to stimuli Mood/Behavior: Anxious, Flat affect Orientation Level: Oriented X4 Single Step Commands: With increased time, With repetition Method of Communication: Verbal Safety Judgment: Decreased awareness of need for assistance Awareness of Errors: Assistance required to identify errors made, Assistance required to correct errors made Deficit Awareness: Decreased awareness of deficits Attention Span: Appears intact Bed Mobility Bed Mobility Exam: Sit to Supine Level of Harmon: Moderate assist (50% patient's effort) Physical/Nonphysical Assist: HOB elevated, Nonverbal cues (demo/gestures), Verbal Cues, Moderate cues, Additional assist utilized for safety Transfers Transfer Exam: Sit to stand Level of Harmon: Contact guard Physical/Nonphysical Assist: Nonverbal cues (demo/gestures), Verbal Cues, Minimal cues Assistive Device: Rollator Transfer Exam: Stand to Sit Level of Harmon: Contact guard Physical/Nonphysical Assist: Nonverbal cues (demo/gestures), Verbal Cues, Minimal cues Assistive Device: Rollator Toilet Transfer Level of Harmon: Minimum assist (75% patient's effort) Physical/Nonphysical Assist: Nonverbal cues (demo/gestures), Verbal Cues, Set-up required, Minimal cues, Additional assist utilized for safety Type of Transfer: Ambulation, To toilet Assistive Device: Rollator Self-Care Interventions Self Care/Home Management (ADLs) Time Entry: Self_Care Interventions: Pt actively participated in self-care interventions this date with an emphasis on functional mobility, endurance, and ADL retraining. Pt engaged in bed mobility, functional transfers, hallway ambulation, and toileting ADLs to address performance skill deficits impeding occupational independence. Pt benefited from skilled occupational therapy interventions including: Monitoring of vitals to ensure activity tolerance MIN verbal and tactile cues to facilitate sequencing during functional tasks Provision of increased time frames to support optimal level of pt participation Task/activity modification with grading as needed to achieve safety while also providing appropriate functional challenge Skilled organization and management of medical lines/tubes to reduce fall risk with mobility aspects of ADLs Environmental set-up to ensure safety and accessibility to all needed areas of treatment space Education on energy conservation and work simplification Toileting Toileting Level of Assistance: Minimum assistance Where Assessed: Toilet Toileting Interventions: Pt completed a sit to stand transfer from recliner chair with CGA and min multimodal cues for adherence to sternal precautions to prepare for engagement in toileting ADL. Pt ambulated ~15 feet into her bathroom with min A and use of rollator before completing a stand to sittransfer onto toilet with min A and min multimodal cues to ensure a controlled descent. Increased time provided to allow for pt to complete toileting ADL while seated on toilet. Pt demonstrated the ability to complete a portion of perineal care while seated unsupported on toilet with CGA and intermittent unilateral UE support on walker for maintenance of dynamic sitting balance. Pt completed a sit to stand transfer from toilet with min A and min verbal cues for adherence to sternal precautions.Pt completed remainder of perineal care while standing with CGA and consistent unilateral UE support on walker. Pt ambulated ~10 feet back into her room with min A and use of rollator before completing a stand to sit transfer with CGA and min verbal cues to ensure a controlled descent. Increased time provided to allow for pt to rest so as to maximize activity tolerance necessary for continued engagement in functional mobility tasks. Functional Mobility Pt completed a sit to stand transfer with contact guard assist from recliner chair to prepare for engagement in functional mobility necessary for higher level ADL participation. Pt demonstrated the ability to ambulate approximately 40 feet with min A and use of rollator before requiring a seated rest break. Pt completed a stand <> sit transfer onto and off of recliner chair with CGA and minverbal cues for rollator management and adherence to sternal precautions. Increased time provided during seated rest break and cues for PLB provided to maximize activity tolerance necessary for continued engagement in functional mobility tasks. Pt ambulated an additional 40 feet back to her room with min A and use of rollator before completing a stand to sit transfer onto EOB with CGA. Pt required mod A and min multimodal cues for log rolling technique to complete sit to supine transition. Pt provided with min verbal cues for pacing, posture, and obstacle navigation during ambulation. Assessment Pt tolerated session activities fair as evidenced by monitoring of vitals throughout session. Pt with improved performance this date demonstrating fair progress towards goals. Patient demonstrated good rehab effort this date. Pt demonstrated improvement in functional endurance, cognition, and strength as evidenced by their ability to engage in functional mobility necessary for engagement in higher level ADL participation with decreased assistance as compared to previous OT session. However, pt continues to require environmental modification, verbal cues, and physical assistance to maximize safety with engagement in functional activity secondary to limitations with strength, functional endurance, balance, and activity tolerance. Patient would benefit from continued skilled OT intervention to increase overall performance in ADLs, strength and functional endurance. OT will continue to follow pt and complete POC. OT Recommendations Discharge Destination: Acute rehab Discharge Equipment: Defer to facility Plan OT will progress ADL and IADL performance. OT will continue to follow pt and see as prescribed 2-5x/week. Goals OT GOAL DETAILS Goal Established Date Time Frame Goal Status OT Goal 1: Pt will perform functional toilet transfer including entering/exiting bathroom with mod I using DME as needed. 05/07/24 2 weeks OT Goal 2: Pt will perform three consecutive grooming activities standing at the sink with mod I using DME as needed. 05/07/24 2 weeks OT Goal 3: Pt will perform three consecutive LB dressing activities in sitting/standing with mod I using DME/AE as needed. 05/07/24 2 weeks OT Goal 4: Pt will verbalize/demonstrate sternal precautions with 100% accuracy in order to safely participate in her ADL routine. 05/07/24 Written by Geno Regan on 05/11/24 at 1:23 PM. * Progress Notes - Pari Lindo 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 - 05/11/2024 11:02 AM EDT Physical Therapy Treatment Patient Name: Rere Hunter Today's Date: 05/11/2024 PT Discharge Recommendations: Acute rehab Equipment Recommended: Defer to facility Subjective The patient states, I am so tired. Participants in Care Family/Caregiver Present: No Tester Equipment: Not Applicable Presentation Oxygen: Supplemental oxygen Nasal cannula 3 L/min Telemetry: Yes Lines and Tube: Pacer Wires (Active) NG/OG [place] Sump Nasogastric 14 Fr Right nostril (Active) Negative Pressure Wound Therapy Sternum (Active) Peripheral IV 05/08/24 Anterior;Right Forearm (Active) Peripheral IV 05/09/24 Right;Upper Arm (Active) Pre-Session: Sitting in chair, Lines intact RN agreeable to session. Post-Session: Supine, Head of bed elevated, Call light in reach, Lines intact, RN notified, Bed alarm (zone 1, 2, 3) Patient positioned for comfort and pressure relief. Precautions Medical Precautions: Fall precautions, Sternal Objective Pain Patient complained of 8/10 pain at sternal incision site; RN made aware; patient positioned for comfort and pressure relief. Delirium Screening Urban Agitation Sedation Scale (RASS): Alert and calm Confusion Assessment Method-ICU (CAM-ICU/PCAM-ICU) Feature 3: Altered Level of Consciousness: Negative Therapeutic Activity (14 minutes) Verbal, visual, and tactile cues provided throughout treatment session for self- pacing, fall prevention, pursed lip breathing and adherence to sternal precautions. Therapist monitored patient's vitalsigns during session to assess patient's continued tolerance to activity. Vital signs stable. Please see bed mobility and transfer section for further details. Bed Mobility Bed Mobility Interventions: Verbal cues provided for correct BUE placement and for sequencing. Bed Mobility Exam: Scooting/Bridging Level of Harmon: Dependent (to scoot to head of bed) Physical/Nonphysical Assist: Additional assist utilized for safety, Verbal Cues, Set-up required Assistive Device: Other (draw sheet) Bed Mobility Exam: Sit to Supine Level of Harmon: Moderate assist (50% patient's effort) Physical/Nonphysical Assist: Additional assist utilized for safety, Verbal Cues, Set-up required Transfers Transfer Intervention: Verbal cues provided for correct bilateral hand and foot placement during sit to stand transfers. Transfer Exam: Sit to stand Level of Harmon: Contact guard Physical/Nonphysical Assist: Verbal Cues, Set-up required Assistive Device: Rollator Transfer Exam: Stand to Sit Level of Harmon: Contact guard Physical/Nonphysical Assist: Verbal Cues, Set-up required Assistive Device: Rollator Toilet Transfer Level of Harmon: Minimum assist (75% patient's effort) Physical/Nonphysical Assist: Additional assist utilized for safety, Verbal Cues, Set-up required Type of Transfer: Ambulation, To toilet Assistive Device: Rollator Gait Training (15 minutes) Device: Rollator Apparatus: Chair follow Assistance: Minimum assistance, Moderate verbal cues, Moderate tactile cues, Additional assist utilized for safety Distance: 40ft + 40ft; 1 seated rest break due to fatigue Gait Analysis: shuffling gait, narrow JACI, inconsistent foot placement, decreased gait speed, difficulty managing rollator during ambulation Gait Training Interventions: Verbal cues provided for upright posture, increased stride, improved bilateral foot clearance, safe rollator management and increased body awareness related to walker position. Assessment The patient fatigued easily with all activities and required frequent seated rest breaks. The patient demonstrates decreased balance with transfers and gait. The patient received cues for safe/improved quality of gait pattern and safe walker management. The patient continues to require assistance for all bed mobility, transfers and gait. The patient is unable to ambulate household distances safely. The patient is a fall risk. The patient is most appropriate for acute rehab at this time. The patient continues to present with the following impairments: decreased strength, decreased balance, decreased activity tolerance and decreased safety awareness. The patient will continue to benefit from skilled PT services to address deficits listed to decrease fall risk and maximize functional mobility levels to promote a safe return to the home. PT Recommendations Discharge Destination: Acute rehab Discharge Equipment: Defer to facility Plan Continue with established PT plan of care 2 - 5 times per week to progress towards PT goals. PT Goals PT GOAL DETAILS Goal Established Date Time Frame Goal Status PT Goal 1: Pt will perform supine<>sit transfers with CGA and HOB flat, no use of bed rails. 05/07/24 2 weeks PT Goal 2: Pt will perform sit to stand and bed to chair transfers with Stefan and LRD. 05/07/24 2 weeks PT Goal 3: Pt will ambulate >600ft with Stefan and LRD. 05/07/24 2 weeks PT Goal 4: Pt will safely ascend/descend 3 steps with SBA, one handrail. 05/07/24 2 weeks Written by Pari Lindo PTA on 05/11/24 at 2:08 PM. * Progress Notes - Miguel Downey MD - 05/11/2024 10:49 AM EDT Images from the original note were not included. Procedures 05/11/24 Rere Hunter HPI Rere Hunter is a 53 y.o. female POD [address] Austin Past 24 hours: PM: NG clamp trial. Having bowel movements. Stopped D5 AM: A&Ox4, 100-105 ASA/statin/BB, 3LNC CXR reviewed small residual pleural effusion, BM 05/10, NG clamp trial if <200 pull NG>CLD KUB dilated segment small bowel, -41 40 lasix Cr/BUN 1.09, 1 g Ca, 1mg guanfacine Edited by: Miguel Downey MD at 05/11/2024 1047 Lines/Drains/Tubes: Patient Lines/Drains/Airways Status Active Active LDAs Name Placement date Placement time Site Days Peripheral IV 05/08/24 Anterior;Right Forearm 05/08/24 1730 Forearm 2 Peripheral IV 05/09/24 Right;Upper Arm 05/09/24 1011 Arm 2 NG/OG [facility] Sump Nasogastric 14 Fr Right nostril 05/09/24 1519 Right nostril 1 Negative Pressure Wound Therapy Sternum 05/06/24 1940 Sternum 4 ROS: GCS: [place] Coma Scale Score: 15 Review of Systems 14 point ROS reviewed and otherwise negative or unobtainable except as noted above or in HPI. Vital signs: Visit Vitals BP 103/67 Pulse 97 Temp 36.6 ??C (97.8 ??F) (Oral) Resp (!) 32 Ht 1.549 m (5' 1 ) Wt 63.1 kg (139 lb 1.8 oz) SpO2 90% BMI 26.28 kg/m?? Smoking Status Every Day BSA 1.65 m?? Intake/Output Summary (Last 24 hours) at 05/11/2024 1056 Last data filed at 05/11/2024 0906 Gross per 24 hour Intake 1988.75 ml Output 2500 ml Net -511.25 ml Physical Exam: Sedation was held for the purposes of examination. Physical Exam HPI Rere Hunter is a 53 y.o. female POD 4 4VCABG Past 24 hours: PM: OK to give meds via NG with small fluid and clamp for 1 hr following, CT A/P with partial SBO vs. Ileus, KUB for AM, repeat VBG in AM for lactate AM: A&Ox4, 107 ASA/statin/BB, 3LNC, SBO vs ileus, NG to low intermittent passing gas +CLD, repeat KUB in am, increased d5 to 75 hr, h/h stable, dvt prophylaxis Edited by: Miguel Downey MD at 05/10/2024 1257 Lines/Drains/Tubes: Patient Lines/Drains/Airways Status Active Active LDAs Name Placement date Placement time Site Days Peripheral IV 05/08/24 Anterior;Right Forearm 05/08/24 1730 Forearm 1 Peripheral IV 05/09/24 Right;Upper Arm 05/09/24 1011 Arm 1 NG/OG [facility] Sump Nasogastric 14 Fr Right nostril 05/09/24 1519 Right nostril less than 1 Y Chest Tube 1 and 2 Right Mediastinal 32 Fr. Left Mediastinal 32 Fr. 05/06/241920 -- 3 Y Chest Tube 3 and 4 Pleural 32 Fr. Pleural 32 Fr. 05/06/242130 -- 3 Negative Pressure Wound Therapy Sternum 05/06/241939 Sternum 3 ROS: GCS: [place] Coma Scale Score: 14 Review of Systems 14 point ROS reviewed and otherwise negative or unobtainable except as noted above or in HPI. Vital signs: Visit Vitals BP 119/85 Pulse 105 Temp 36.9 ??C (98.5 ??F) (Oral) Resp (!) 37 Ht 1.549 m (5' 1 ) Wt 63.1 kg (139 lb 1.8 oz) SpO2 96% BMI 26.28 kg/m?? Smoking Status Every Day BSA 1.65 m?? Intake/Output Summary (Last 24 hours) at 05/10/2024 1302 Last data filed at 05/10/2024 1147 Gross per 24 hour Intake 2340.5 ml Output 4595 ml Net -2254.5 ml Physical Exam: Sedation was held for the purposes of examination. Physical Exam Constitutional: Appearance: Normal appearance. HENT: Head: Normocephalic and atraumatic. Nose: Nose normal. No congestion. Mouth/Throat: Mouth: Mucous membranes are dry. Pharynx: Oropharynx is clear. Cardiovascular: Rate and Rhythm: Tachycardia present. Pulses: Normal pulses. Pulmonary: Effort: Pulmonary effort is normal. No respiratory distress. Breath sounds: Normal breath sounds. No stridor. No wheezing. Abdominal: General: There is distension. No tenderness Musculoskeletal: General: No swelling. Right lower leg: No edema. Left lower leg: No edema. Skin: General: Skin is warm and dry. Capillary Refill: Capillary refill takes less than 2 seconds. Neurological: Mental Status: She is alert. Labs in last 18 hours: CBC WBC 23.95 (H) Hb 8.6 (L) Plt 146 (L) Hct 25.0 (L) ANC ?? INR ??, PTT ??, Anti-Xa ?? BMP Na 141 Cl 106 BUN 22 (H) Glu 86 K 3.7 Co2 24 Cr 1.09 Ca 7.8 (L) iCa 4.2 (L) Mg 2.3, Phos 3.8 Lactate ?? LFT AST ?? AlkPhos ?? T Prot ?? ALK ?? Bili ?? Alb ?? D.Bili ?? Imaging as available: No results found for this or any previous visit. === 05/01/24 === CT ABDOMEN PELVIS WO IV CONTRAST - Narrative - CLINICAL INDICATION: Bowel obstruction suspected TECHNIQUE: Multiple axial CT images were obtained from lung bases through pubic symphysis without the administration of IV contrast. Reformatted images in the coronal and sagittal planes were generated from theaxial data set to facilitate diagnostic accuracy. Total DLP (Dose-Length Product): 668.65 mGy.cm. Please note: The reported value represents the total of one or more individual components during the CT acquisition on this date and at this time, and as such, the same value may appear in more than one CT report depending on the interpreting/reporting physicians. COMPARISON: None. FINDINGS: Lower Chest: Small left pleural effusion with bilateral lower lobe consolidations. Groundglass opacities in the imaged lungs. Mediastinal drains and bilateral chest tubes. Trace right pneumothorax ispartially noted Analysis of the abdominopelvic viscera is limited by the absence of intravenous contrast material. Solid Abdominal Organs: Diffuse hepatic steatosis. Absent gallbladder. Unremarkable spleen. No suspicious pancreatic findings. No suspicious adrenal findings. No suspicious renal mass lesions. No hydronephrosis. GI Tract/Mesentery/Peritoneum: Dilatation of multiple small bowel loops. There is liquid stool in the colon consistent with diarrhea. Normal appendix. No pneumatosis. Pelvic Viscera: No suspicious pelvic mass lesions. Lymph Nodes/Vasculature: No lymphadenopathy by CT size criteria. The aortoiliac vasculature is normal in caliber. Free Fluid: No ascites. Musculoskeletal and Body Wall: No aggressive or suspicious findings. - Impression - Dilatation of multiple small bowel loops representing ileus or incomplete obstruction. Liquid stoolin the colon representing diarrhea. Diffuse hepatic steatosis CRITICAL RESULT: No. COMMUNICATION: Per this written report. Drafted by Camila Barth MD on 05/09/2024 5:25 PM Final report signed by Camila Barth MD on 05/09/2024 5:28 PM === 05/01/24 === XR CHEST 1 VIEW - Narrative - CLINICAL INDICATION: post p[ TECHNIQUE: XR CHEST 1 VIEW COMPARISON: 16 hours prior FINDINGS: Mediastinal approach chest tubes have been removed. Other support hardware projects in unchanged and appropriate position. Mediastinal and cardiac contours are stable. Perihilar and basal airspace disease and/or atelectasis is slightly increased. - Impression - Slightly increased perihilar opacities, likely atelectasis with some possible superimposed airspacedisease. CRITICAL RESULT: No. COMMUNICATION: Per this written report Drafted by Champ Oden MD on 05/11/2024 9:07 AM Final report signed by Champ Oden MD on 05/11/2024 9:08 AM Reviewed and agree with above. Assessment and Plan: This patient is critically ill. Medical Problems and Relevant Plans Hospital Problems POA * (Principal) CAD, multiple vessel Yes Overview Addendum 05/11/2024 10:54 AM by Miguel Downey MD Patient presented to OSH on 05/01/24 c/o chest pain Loaded with ASA & Plavix, continue LHC on 05/01/24 showed critical distal left main artery stenosis 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, continue CT Surgery consulted CABG work-up pending 05/07 POD 1 4vCABG 05/[address] recs ASA BB statin 05/[address] recs CXR, diuresis and metoprolol to 50 05/[address] recs serial KUB. DVT pro, remove CT, continue ICU LOC 05/11 ASA/statin/BB continue ICU loc Anxiety and depression Yes Overview Addendum 05/11/2024 10:53 AM by Miguel Downey MD 05/07 Continue home bupropion XL 300 mg daily Continue home citalopram 40 mg daily Continue PRN hydroxyzine 25 mg q6 05/08 continue home meds 05/09 continue home meds / pt reports sleeping well overnight 05/10 pt denies anxiety this morning reports sleeping well 05/11 pt anxious at baseline pt reports feeling better today however didn't sleep well last night COPD (chronic obstructive pulmonary disease) ([facility] [place]) Yes Overview Addendum 05/11/2024 10:53 AM by Miguel Downey MD 05/07 Duo nebs q6 SPO2 goal >88% On 4LNC 05/08 on 2LNC 05/09 on 2LNC +40 lasix 05/10 3lNC 05/11 3lNC CXR reviewed NSTEMI (non-ST elevated myocardial infarction) ([facility] [place]) Yes Overview Addendum 05/11/2024 10:54 AM by Miguel Downey MD Diagnosed at OSH with elevated troponins of 0.05 to 0.23 to 0.16 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, 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 Repeat troponins pending 05/07 POD 1 4V CABG 05/09 EKG ordered and reviewed no signs of ST changes 05/10 ST 105 05/11 ST 100-105 GERD (gastroesophageal reflux disease) Yes Overview Addendum 05/11/2024 10:54 AM by Miguel Downey MD Continue Protonix 40 mg daily 05/07 extubated, no on home PPI dc'd 05/08 pt denies any GERD symptoms 05/09 + PPI for reflux 05/10 docusate, metoclopramide, miralax, senna, simethicone, continue NG to low intermitted, CLD forpt comfort, passing gas 05/11 as above denies reflux today NG clamp trial Overweight Yes THOM (obstructive sleep apnea) Yes Overview Addendum 05/09/2024 11:15 AM by Miguel Downey MD 05/07 pt declines home CPAP use 05/08 on 2lNC 05/09 96% on 2lNC S/P CABG x 4 Not Applicable Overview Addendum 05/11/2024 10:54 AM by Miguel Downey MD 05/06 w/Reda 4 chest tubes (mediastinal x2, left pleural, right pleural) A&V wires SBP <140 Aspirin, statin, beta stacey as clinically appropriate 05/07 epi .03 weaning, holding beta block (epi .03) 05/09 off all gtts NSR continue ICU level of care per CT surg 05/[address] recs Low cardiac output syndrome (CMS/HCC) Unknown Overview Addendum 05/11/2024 10:55 AM by Miguel Downey MD LVEF 45% Requiring epi 05/07 epi wean currently .03 Epi off 05/09 SBP within goal 05/11 off all gtts SBP within goal Hypertension Unknown Overview Addendum 05/09/2024 10:56 AM by Reyna Mcdonald APRN Requiring nitroglycerin gtt upon arrival to ICU 05/07 off gtts, SBP within goal 05/09: increased metop to 50 BID Hyperkalemia Unknown Overview Addendum 05/11/2024 10:55 AM by Miguel Downey MD Intro op max 7.3 Received dextrose, insulin, calcium, lasix intra-op Treat K>5.2 05/07 K 5.0 05/08 K 4.6 05/09 K 4.7 05/11 K 3.7 Cardiac volume overload Unknown Overview Addendum 05/11/2024 10:55 AM by Miguel Downey MD Diuresis as clinically indicated 05/[address] surg 05/08 +20 lasix 05/09 + [address] surg 05/10 + 40 lasix 05/11 40IV lasix Hypoglycemia Unknown Overview Addendum 05/11/2024 10:56 AM by Miguel Downey MD - continue to monitor, checking LFTs - D5 gtt at 50 05/10 d5 to 75ml/hr 05/11 off D5 monitoring CBG NG clamp trial resume diet if <200 Nausea with vomiting Unknown Overview Addendum 05/11/2024 10:56 AM by Miguel Downey MD - KUB pending 05/09 - Reglan - Simethicone for gastric bubble - may need NG placement, continue to monitor 05/10 docusate, metoclopramide, miralax, senna, simethicone, continue NG to low intermitted, CLD forpt comfort, passing gas , + one time dose of compazine 05/11 KUB reviewed dilated seg of small bowel, NG clamp trial, BM 05/10 denies N/V today Miguel Downey MD Cosigned by Gregg Burdick MD at 05/11/2024 6:49 PM EDT Associated attestation - Gregg Burdick MD - 05/11/2024 6:49 PM EDT I saw and evaluated the patient with the resident/fellow. I discussed the case with the resident/fellow and agree with the findings and plan as documented. * Progress Notes - Edson Reed MD - 05/11/2024 6:59 AM EDT Rere Hunter Patient was seen and examined with resident physicians and CCM. Morning chest x- ray reviewed. Labs in last 18 hours CBC WBC 23.95 (H) Hb 8.6 (L) Plt 146 (L) Hct 25.0 (L) ANC ?? INR ??, PTT ??, Anti-Xa ?? BMP Na 141 Cl 106 BUN 22 (H) Glu 86 K 3.7 Co2 24 Cr 1.09 Ca 7.8 (L) iCa 4.2 (L) Mg 2.3, Phos 3.8 Lactate ?? LFT AST ?? AlkPhos ?? T Prot ?? ALK ?? Bili ?? Alb ?? D.Bili ?? acetaminophen, 1,000 mg, Oral, q8h aspirin, 81 mg, Nasogastric, Daily atorvastatin, 80 mg, Nasogastric, Nightly buPROPion, 150 mg, Nasogastric, BID calcium chloride, 1 g, Intravenous, Once citalopram, 40 mg, Nasogastric, Daily docusate sodium, 100 mg, Nasogastric, BID heparin (porcine), 5,000 Units, Subcutaneous, q8h ipratropium-albuterol, 3 mL, Nebulization, q6h RT lidocaine, 2 patch, Apply externally, q24h melatonin, 6 mg, Nasogastric, Nightly methocarbamol, 750 mg, Nasogastric, 4x daily metoclopramide, 10 mg, Intravenous, q6h metoprolol tartrate, 50 mg, Nasogastric, BID mupirocin, 1 Application, Each Nostril, BID polyethylene glycol, 17 g, Nasogastric, Daily primidone, 50 mg, Nasogastric, BID senna, 17.2 mg, Nasogastric, Nightly simethicone, 80 mg, Nasogastric, 4x daily Visit Vitals BP 117/75 (BP Location: Left arm, Patient Position: Sitting) Pulse 105 Temp 36.4 ??C (97.5 ??F) (Oral) Ht 1.549 m (5' 1 ) Wt 63.1 kg (139 lb 1.8 oz) SpO2 95% BMI 26.28 kg/m?? Intake/Output Summary (Last 24 hours) at 05/11/2024 0659 Last data filed at 05/11/2024 0321 Gross per 24 hour Intake 1988.75 ml Output 2030 ml Net -41.25 ml Physical Exam Constitutional: General: She is not in acute distress. HENT: Head: Normocephalic and atraumatic. Right Ear: External ear normal. Left Ear: External ear normal. Nose: Nose normal. Comments: ngt Mouth/Throat: Mouth: Mucous membranes are moist. Eyes: General: No scleral icterus. Extraocular Movements: Extraocular movements intact. Cardiovascular: Rate and Rhythm: Regular rhythm. Tachycardia present. Pulmonary: Effort: Pulmonary effort is normal. No respiratory distress. Abdominal: General: There is distension. Tenderness: There is abdominal tenderness. Musculoskeletal: Cervical back: Normal range of motion. No rigidity. Right lower leg: No edema. Left lower leg: No edema. Skin: General: Skin is warm. Neurological: General: No focal deficit present. Mental Status: She is alert. Mental status is at baseline. Psychiatric: Comments: No agitation Sternal incision: dressing applied Leg incision: well approximated Chest tubes -20 suction, ss drainage, no air leak Impression & Plan 53 yrs female who underwent 4v CABG on 05/06/[address] Austin. -ASA, statin -metop 50 BID -pul ngt -DVT ppx -keep pacing wires -Continue wound vac -limit narcotics -pt/ot, mobilize -gentle diuresis -delirium precautions-frequent reorientation, windows open, no sleeping during the day -Stay ICU * Progress Notes - Miguel Downey MD - 05/10/2024 1:01 PM EDT HPI Rere Hunter is a 53 y.o. female POD 4 4VCABG Past 24 hours: PM: OK to give meds via NG with small fluid and clamp for 1 hr following, CT A/P with partial SBO vs. Ileus, KUB for AM, repeat VBG in AM for lactate AM: A&Ox4, ST 107 ASA/statin/BB, 3LNC, SBO vs ileus, NG to low intermittent passing gas +CLD, repeat KUB in am, increased d5 to 75 hr, h/h stable, dvt prophylaxis Edited by: Miguel Downey MD at 05/10/2024 1257 Lines/Drains/Tubes: Patient Lines/Drains/Airways Status Active Active LDAs Name Placement date Placement time Site Days Peripheral IV 05/08/24 Anterior;Right Forearm 05/08/24 1730 Forearm 1 Peripheral IV 05/09/24 Right;Upper Arm 05/09/24 1011 Arm 1 NG/OG [place] Sump Nasogastric 14 Fr Right nostril 05/09/24 1519 Right nostril less than 1 Y Chest Tube 1 and 2 Right Mediastinal 32 Fr. Left Mediastinal 32 Fr. 05/06/24 1921 -- 3 Y Chest Tube 3 and 4 Pleural 32 Fr. Pleural 32 Fr. 05/06/242130 -- 3 Negative Pressure Wound Therapy Sternum 05/06/24 1940 Sternum 3 ROS: GCS: [place] Coma Scale Score: 14 Review of Systems 14 point ROS reviewed and otherwise negative or unobtainable except as noted above or in HPI. Vital signs: Visit Vitals BP 119/85 Pulse 105 Temp 36.9 ??C (98.5 ??F) (Oral) Resp (!) 37 Ht 1.549 m (5' 1 ) Wt 63.1 kg (139 lb 1.8 oz) SpO2 96% BMI 26.28 kg/m?? Smoking Status Every Day BSA 1.65 m?? Intake/Output Summary (Last 24 hours) at 05/10/2024 1302 Last data filed at 05/10/2024 1147 Gross per 24 hour Intake 2340.5 ml Output 4595 ml Net -2254.5 ml Physical Exam: Sedation was held for the purposes of examination. Physical Exam Constitutional: Appearance: Normal appearance. HENT: Head: Normocephalic and atraumatic. Nose: Nose normal. No congestion. Mouth/Throat: Mouth: Mucous membranes are dry. Pharynx: Oropharynx is clear. Cardiovascular: Rate and Rhythm: Tachycardia present. Pulses: Normal pulses. Pulmonary: Effort: Pulmonary effort is normal. No respiratory distress. Breath sounds: Normal breath sounds. No stridor. No wheezing. Abdominal: General: There is distension. Tenderness: There is abdominal tenderness. Musculoskeletal: General: No swelling. Right lower leg: No edema. Left lower leg: No edema. Skin: General: Skin is warm and dry. Capillary Refill: Capillary refill takes less than 2 seconds. Neurological: Mental Status: She is alert. Labs in last 18 hours: CBC WBC 22.88 (H) Hb 9.0 (L) Plt 149 (L) Hct 26.4 (L) ANC ?? INR ??, PTT ??, Anti-Xa ?? BMP Na 143 Cl 108 (H) BUN 28 (H) Glu 101 (H) K 4.0 Co2 24 Cr 1.28 (H) Ca 7.8 (L) iCa 4.2 (L) Mg 2.5 (H), Phos 3.9 Lactate ?? LFT AST 201 (H) AlkPhos 112 (H) T Prot 5.7 (L) ALK 45 (H) Bili 0.5 Alb ?? D.Bili ?? Imaging as available: No results found for this or any previous visit. === 05/01/24 === CT ABDOMEN PELVIS WO IV CONTRAST - Narrative - CLINICAL INDICATION: Bowel obstruction suspected TECHNIQUE: Multiple axial CT images were obtained from lung bases through pubic symphysis without the administration of IV contrast. Reformatted images in the coronal and sagittal planes were generated from theaxial data set to facilitate diagnostic accuracy. Total DLP (Dose-Length Product): 668.65 mGy.cm. Please note: The reported value represents the total of one or more individual components during the CT acquisition on this date and at this time, and as such, the same value may appear in more than one CT report depending on the interpreting/reporting physicians. COMPARISON: None. FINDINGS: Lower Chest: Small left pleural effusion with bilateral lower lobe consolidations. Groundglass opacities in the imaged lungs. Mediastinal drains and bilateral chest tubes. Trace right pneumothorax ispartially noted Analysis of the abdominopelvic viscera is limited by the absence of intravenous contrast material. Solid Abdominal Organs: Diffuse hepatic steatosis. Absent gallbladder. Unremarkable spleen. No suspicious pancreatic findings. No suspicious adrenal findings. No suspicious renal mass lesions. No hydronephrosis. GI Tract/Mesentery/Peritoneum: Dilatation of multiple small bowel loops. There is liquid stool in the colon consistent with diarrhea. Normal appendix. No pneumatosis. Pelvic Viscera: No suspicious pelvic mass lesions. Lymph Nodes/Vasculature: No lymphadenopathy by CT size criteria. The aortoiliac vasculature is normal in caliber. Free Fluid: No ascites. Musculoskeletal and Body Wall: No aggressive or suspicious findings. - Impression - Dilatation of multiple small bowel loops representing ileus or incomplete obstruction. Liquid stoolin the colon representing diarrhea. Diffuse hepatic steatosis CRITICAL RESULT: No. COMMUNICATION: Per this written report. Drafted by Camila Barth MD on 05/09/2024 5:25 PM Final report signed by Camila Barth MD on 05/09/2024 5:28 PM === 05/01/24 === XR CHEST 1 VIEW - Narrative - CLINICAL INDICATION: post op TECHNIQUE: XR CHEST 1 VIEW COMPARISON: 05/09/2024 FINDINGS: Gastric suction tube descends into the abdomen. Stable position of pre-existing support hardware. Stable cardiomediastinal silhouette. Left retrocardiac atelectasis. No acute airspace disease in the remaining lungs. Small residual left-sided pleural effusion. No left-sided pneumothorax. Small rightapical pneumothorax. - Impression - Small residual left-sided pleural effusion. Small right apical pneumothorax in the presence of chest tube. CRITICAL RESULT: No. COMMUNICATION: Per this written report. Drafted by Mary Phelps MD on 05/10/2024 10:00 AM Final report signed by Mary Phelps MD on 05/10/2024 10:02 AM Reviewed and agree with above. Assessment and Plan: This patient is critically ill. 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 DVT pro, remove CT, continue ICU LOC Anxiety and depression Yes Overview Addendum 05/10/2024 12:59 PM by Miguel Downey MD 05/07 Continue home bupropion XL 300 mg daily Continue home citalopram 40 mg daily Continue PRN hydroxyzine 25 mg q6 05/08 continue home meds 05/09 continue home meds / pt reports sleeping well overnight 05/10 pt denies anxiety this morning reports sleeping well COPD (chronic obstructive pulmonary disease) ([facility]/HCC) Yes Overview Addendum 05/10/2024 12:59 PM by Miguel Downey MD 05/07 Duo nebs q6 SPO2 goal >88% On 4LNC 05/08 on 2LNC 05/09 on 2LNC +40 lasix 05/10lNC NSTEMI (non-ST elevated myocardial infarction) ([facility]) Yes Overview Addendum 05/10/2024 12:59 PM by Miguel Downey MD Diagnosed at OSH with elevated troponins of 0.05 to 0.23 to 0.16 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, 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 Repeat troponins pending 05/07 POD 1 4V CABG 05/09 EKG ordered and reviewed no signs of ST changes 05/10 ST 105 GERD (gastroesophageal reflux disease) Yes Overview Addendum 05/10/2024 1:00 PM by Miguel Downey MD Continue Protonix 40 mg daily 05/07 extubated, no on home PPI dc'd 05/08 pt denies any GERD symptoms 05/09 + PPI for reflux 05/10 docusate, metoclopramide, miralax, senna, simethicone, continue NG to low intermitted, CLD forpt comfort, passing gas Overweight Yes THOM (obstructive sleep apnea) Yes Overview Addendum 05/09/2024 11:15 AM by Miguel Downey MD 05/07 pt declines home CPAP use 05/08 on 2lNC 05/09 96% on 2lNC S/P CABG x 4 Not Applicable Overview Addendum 05/09/2024 11:15 AM by Miguel Downey MD 05/06 w/Reda 4 chest tubes (mediastinal x2, left pleural, right pleural) A&V wires SBP <140 Aspirin, statin, beta stacey as clinically appropriate 05/07 epi .03 weaning, holding beta block (epi .03) 05/09 off all gtts NSR continue ICU level of care per CT surg Low cardiac output syndrome (CMS/HCC) Unknown Overview Addendum 05/09/2024 11:16 AM by Miguel Downey MD LVEF 45% Requiring epi 05/07 epi wean currently .03 Epi off 05/09 SBP within goal Hypertension Unknown Overview Addendum 05/09/2024 10:56 AM by Reyna Mcdonald APRN Requiring nitroglycerin gtt upon arrival to ICU 05/07 off gtts, SBP within goal 05/09: increased metop to 50 BID Hyperkalemia Unknown Overview Addendum 05/09/2024 11:16 AM by Miguel Downey MD Intro op max 7.3 Received dextrose, insulin, calcium, lasix intra-op Treat K>5.2 05/07 K 5.0 05/08 K 4.6 05/09 K 4.7 Cardiac volume overload Unknown Overview Addendum 05/10/2024 1:01 PM by Miguel Downey MD Diuresis as clinically indicated 05/[address] surg 05/08 +20 lasix 05/09 + [address] surg 05/10 + 40 lasix Hypoglycemia Unknown Overview Addendum 05/10/2024 1:01 PM by Miguel Downey MD - continue to monitor, checking LFTs - D5 gtt at 50 05/10 d5 to 75ml/hr Nausea with vomiting Unknown Overview Addendum 05/10/2024 1:01 PM by Miguel Downey MD - KUB pending 05/09 - Reglan - Simethicone for gastric bubble - may need NG placement, continue to monitor 05/10 docusate, metoclopramide, miralax, senna, simethicone, continue NG to low intermitted, CLD forpt comfort, passing gas , + one time dose of compazine Miguel Downey MD Cosigned by Gregg Burdick MD at 05/11/2024 8:24 AM EDT Associated attestation - Gregg Burdick MD - 05/11/2024 8:24 AM EDT I saw and evaluated the patient with the resident/fellow. I discussed the case with the resident/fellow and agree with the findings and plan as documented. * Progress Notes - Divina Yousif - 05/10/2024 10:37 AM EDT Physical Therapy Treatment Patient Name: Rere Hunter Today's Date: 05/10/2024 PT Discharge Recommendations: Acute rehab Equipment Recommended: Defer to facility Subjective I'm doing okay. Pt and RN agreeable to PT services this date. Pt oriented x3. Participants in Care Family/Caregiver Present: Yes Family/Caregiver: Adult Son Presentation Oxygen Therapy: Supplemental oxygen O2 Delivery Method: Nasal cannula O2 Flow Rate (L/min): 3 L/min Lines and Tubes: Telemetry Pacer Wires (Active) NG/OG [place] Sump Nasogastric 14 Fr Right nostril (Active) Y Chest Tube 1 and 2 Right Mediastinal 32 Fr. Left Mediastinal 32 Fr. (Active) Y Chest Tube 3 and 4 Pleural 32 Fr. Pleural 32 Fr. (Active) Negative Pressure Wound Therapy Sternum (Active) Peripheral IV 05/08/24 Anterior;Right Forearm (Active) Peripheral IV 05/09/24 Right;Upper Arm (Active) Pre-Session: Sitting in chair, Lines intact Post-Session: Sitting in chair, Lines intact, RN notified, Call light in reach Precautions Medical Precautions: Fall precautions, Sternal Objective Pain Pt endorsed mild surgical site pain, RN aware. Pt positioned for comfort at close of session. Delirium Screening Urban Agitation Sedation Scale (RASS): Alert and calm Confusion Assessment Method-ICU (CAM-ICU/PCAM-ICU) Feature 3: Altered Level of Consciousness: Negative Transfers Transfer Exam: Sit to stand Level of Harmon: Minimum assist (75% patient's effort) (x3 reps) Physical/Nonphysical Assist: Verbal Cues, Nonverbal cues (demo/gestures) Transfer Exam: Stand to Sit Level of Harmon: Minimum assist (75% patient's effort) Physical/Nonphysical Assist: Verbal Cues, Nonverbal cues (demo/gestures) Transfer Exam: Bed to Chair/Chair to Bed Level of Harmon: Minimum assist (75% patient's effort) Physical/Nonphysical Assist: Verbal Cues, Nonverbal cues (demo/gestures), 1 person + 1 person to manage equipment Therapeutic Activity (17 minutes) See above interventions: transfers performed for task specific training . Pt requires cueing for safety/sequencing during transfers. Increased time required upon coming to sit at EOB, to acclimate toupright. Extensive time spent discussing POC and discharge recommendations with family-acute rehab r ecommendations, post-op mobility expectations, cardiac rehab, etc. Verbalized understanding. Pt andson able to provide further insight into home set-up and PLOF this date. Gait Training (25 minutes) Device: Rollator Apparatus: Chair follow Assistance: Minimum assistance Distance: 40 ft + 50 ft Gait Analysis: shuffling gait, narrow JACI, inconsistent foot placement, decreased gait speed, difficulty managing rollator during ambulation Gait Training Interventions: cues provided for upright posture and safe use of rollator during ambulation Pt required cueing for safe navigation of obstacles in room/hallway during ambulation. Required oneseated rest break during ambulation 2/2 fatigue. Pre- gait activities performed: standing marching with Debbie and rollator. Required one seated rest break during ambulation 2/2 fatigue and SOA. Vitals closely monitored throughout session and remained stable. PT provided pt education regarding safe use of rollator, walking program HEP, sternal precautions, and strategies to decrease fall risk. Verbalized understanding. Assessment Pt requires physical assist with transfers/ambulation secondary to decreased strength, balance, motor control, and activity tolerance. VSS. Pt is a fall risk. Will progress mobility as appropriate. Pt would continue to benefit from skilled PT services to decrease fall risk and promote independence with functional mobility, in order to maximize potential level of function. Pt requires acute rehab placement upon d/c as she currently requires physical assist for transfers/ambulation-family is unable to provide such physical assist. She is able and eager to participate in3 hours of therapy/day. PT Recommendations Discharge Destination: Acute rehab Discharge Equipment: Defer to facility Plan Will continue per PT POC. PT Goals PT GOAL DETAILS Goal Established Date Time Frame Goal Status PT Goal 1: Pt will perform supine<>sit transfers with CGA and HOB flat, no use of bed rails. 05/07/24 2 weeks PT Goal 2: Pt will perform sit to stand and bed to chair transfers with Stefan and LRD. 05/07/24 2 weeks PT Goal 3: Pt will ambulate >600ft with Stefan and LRD. 05/07/24 2 weeks PT Goal 4: Pt will safely ascend/descend 3 steps with SBA, one handrail. 05/07/24 2 weeks Written by Divina Yousif on 05/10/24 at 1:16 PM. * Progress Notes - Heather Ram - 05/10/2024 10:31 AM EDT Case Management Adult Progress Note Rere Hunter 53 y.o. female CSN: [id number] Admission: 05/01/2024 11:01 PM Primary Problem: CAD, multiple vessel Anticipated Discharge Date: TBD Has Discharge Plans Changed? No Housing Circumstances: Not Applicable Housing Circumstances Action Taken: Other N/A Additional Comments SW reviewed chart for case updates. Pt is s/p 4vCABG on 05/06/24 and remains in ICU-level of care. Plan to continue pacing wires, wound vac, and delirium precautions. Per MD, pt is not medically readyfor DC this date. See medical notes for more detail. No further SW concerns identified at this time. SW will monitor pt's progress and will follow up with DC planning and needs as appropriate. NAYA Albarran * Query Clarification Note - Gregg Burdick MD - 05/10/2024 8:03 AM EDT Physician Clarification Please review the following and provide your response below. After further review of the clinical indicators, can the patient's condition be further specified as: [x] MESHA [] Lab results without clinical significance [] Other. Please specify: This documentation will become part of the patient's medical record. * Query Clarification Note - Gregg Burdick MD - 05/10/2024 8:03 AM EDT Physician Clarification Please review the following and provide your response below. After further review of the clinical indicators, can the patient's condition be further specified as: [x] Acute blood loss anemia [] Lab results without clinical significance [] Other (please specify) This documentation will become part of the patient's medical record. * Progress Notes - Edson Reed MD - 05/10/2024 7:05 AM EDT Rere Hunter Patient was seen and examined with resident physicians and [facility]. Morning chest x- ray reviewed. Labs in last 18 hours CBC WBC 22.88 (H) Hb 9.0 (L) Plt 149 (L) Hct 26.4 (L) ANC ?? INR ??, PTT ??, Anti-Xa ?? BMP Na 143 Cl 108 (H) BUN 28 (H) Glu 101 (H) K 4.0 Co2 24 Cr 1.28 (H) Ca 7.8 (L) iCa 4.2 (L) Mg 2.5 (H), Phos 3.9 Lactate 3.3 (H) LFT AST 201 (H) AlkPhos 112 (H) T Prot 5.7 (L) ALK 45 (H) Bili 0.5 Alb ?? D.Bili ?? acetaminophen, 650 mg, Oral, q6h aspirin, 81 mg, Oral, Daily atorvastatin, 80 mg, Oral, Nightly buPROPion XL, 300 mg, Oral, Daily citalopram, 40 mg, Oral, Daily docusate sodium, 100 mg, Oral, BID heparin (porcine), 5,000 Units, Subcutaneous, q8h ipratropium-albuterol, 3 mL, Nebulization, q6h RT melatonin, 6 mg, Oral, Nightly methocarbamol, 500 mg, Oral, 4x daily metoclopramide, 5 mg, Intravenous, q8h metoprolol tartrate, 50 mg, Oral, BID mupirocin, 1 Application, Each Nostril, BID polyethylene glycol, 17 g, Oral, Daily primidone, 50 mg, Oral, BID senna, 17.2 mg, Oral, Nightly simethicone, 80 mg, Oral, 4x daily dextrose 5 % and sodium chloride 0.45 %, 50 mL/hr, Last Rate: 50 mL/hr (05/10/24 0600) Visit Vitals BP 124/73 Pulse 106 Temp 36.9 ??C (98.5 ??F) (Oral) Ht 1.549 m (5' 1 ) Wt 63.1 kg (139 lb 1.8 oz) SpO2 95% BMI 26.28 kg/m?? Intake/Output Summary (Last 24 hours) at 05/10/2024 07 Last data filed at 05/10/2024 0600 Gross per 24 hour Intake 1948 ml Output 3715 ml Net -1767 ml Physical Exam Constitutional: General: She is not in acute distress. HENT: Head: Normocephalic and atraumatic. Right Ear: External ear normal. Left Ear: External ear normal. Nose: Nose normal. Mouth/Throat: Mouth: Mucous membranes are moist. Eyes: General: No scleral icterus. Extraocular Movements: Extraocular movements intact. Cardiovascular: Rate and Rhythm: Regular rhythm. Tachycardia present. Pulmonary: Effort: Pulmonary effort is normal. No respiratory distress. Abdominal: General: There is distension. Tenderness: There is abdominal tenderness. Musculoskeletal: Cervical back: Normal range of motion. No rigidity. Right lower leg: No edema. Left lower leg: No edema. Skin: General: Skin is warm. Neurological: General: No focal deficit present. Mental Status: She is alert. Mental status is at baseline. Psychiatric: Comments: No agitation Sternal incision: dressing applied Leg incision: well approximated Chest tubes -20 suction, ss drainage, no air leak Impression & Plan 53 yrs female who underwent 4v CABG on 05/06/[address] Austin. -ASA, statin -metop 50 BID -increase maintenance fluids -continue NGT, serial abdominal exams -DVT ppx -remove tubes pending CXR results -keep pacing wires -Continue wound vac -limit narcotics -delirium precautions-frequent reorientation, windows open, no sleeping during the day -Stay ICU * Progress Notes - Betty Casas - 05/09/2024 1:26 PM EDT Occupational Therapy Treatment Patient Name: Rere Hunter Today's Date: 05/09/2024 OT Discharge Recommendations: Acute rehab Equipment Recommended: Defer to facility Subjective I'm okay. RN reporting improved mentation prior to session. Participants in Care Family/Caregiver Present: No Presentation Oxygen Therapy: Supplemental oxygen O2 Delivery Method: Nasal cannula O2 Flow Rate (L/min): 4 L/min Lines and Tubes: Telemetry Pacer Wires (Active) NG/OG [place] Sump Nasogastric 14 Fr Right nostril (Active) Y Chest Tube 1 and 2 Right Mediastinal 32 Fr. Left Mediastinal 32 Fr. (Active) Y Chest Tube 3 and 4 Pleural 32 Fr. Pleural 32 Fr. (Active) Negative Pressure Wound Therapy Sternum (Active) Peripheral IV 05/08/24 Anterior;Right Forearm (Active) Peripheral IV 05/09/24 Right;Upper Arm (Active) Pre-Session: Supine, Head of bed elevated, Lines intact Pre-Session Comments: RN gave therapist permission to see pt for therapy Post-Session: Sitting in chair, Lines intact, RN notified, Call light in reach, Self-releasing restraint alternative Post-Session Comments: All needs met. Precautions Medical Precautions: Fall precautions, Sternal Objective Pain Pt with no comment of pain. Delirium Screening Urban Agitation Sedation Scale (RASS): Alert and calm Confusion Assessment Method-ICU (CAM-ICU/PCAM-ICU) Feature 1: Acute Onset or Fluctuating Course: Positive Feature 2: Inattention: Positive Feature 3: Altered Level of Consciousness: Negative Feature 4: Disorganized Thinking: Positive Overall CAM-ICU/PCAM-ICU: Positive Cognition Cognition Overall Cognitive Status: Impaired Arousal/Alertness: Delayed responses to stimuli Mood/Behavior: Lethargic, Flat affect, Confused Orientation Level Comments: Pt oriented to self but not birthday despite several attempts and choices provided. Pt not oriented to current hospital, stating [place] Single Step Commands: With increased time, With repetition Multi-Step Commands: Unable to follow commands Method of Communication: Verbal Safety Judgment: Decreased awareness of need for assistance Awareness of Errors: Assistance required to identify errors made Deficit Awareness: Decreased awareness of deficits Attention Span: Attends with cues to redirect Self-Care Interventions Self Care/Home Management (ADLs) Time Entry: 39 Self_Care Interventions: Pt educated on sternal precautions prior to mobility and importance of carryover. Pt verbalized understanding but demonstrated poor carryover. Pt. participated in functional endurance tasks in preparation for high level ADL routines. Pt required mod A to transition to edge of bed and increased time to adjust to postural changes. Pt endorsing dizziness. Pt then completed sit to stand and simulated BSC transfer with min A and cues to initiate/sequence. Pt required rest break with b/l LE's elevated due to reports of dizziness and decreased responses. After long rest break patient required min A to complete one additional stand from recliner with min A to increase standi ng tolerance and to place chair alarm pad for improved safety. Pt required seated rest break after ~30 seconds due to dizziness. Pt's BP take trhoguhout session and was as follows: supine: 91/64(73),EOB: 100/75(84), after transfer: 82/42(56) and in chair with b/l LE's elevated 89/49(63). Pt's MAP in the 70's at close of session. Difficult to get good reading on cuff pressure and a-line had been discontinued at time of session. Pt left with self-releasing restraint alternative in place for safety and activity blanket. Assessment Pt participated in OT session with a focus on ADL retraining. Pt tolerated session with fair(-) activity tolerance and hypotension. Pt continues to require significant physical and verbal assistance for all functional transfers and self-care tasks. Pt is at an increased risk of falling secondary to deconditioning and impaired standing balance. Pt continues to benefit from skilled OT services to maximize independence/safety with ADLs and functional mobility. OT Recommendations Discharge Destination: Acute rehab Discharge Equipment: Defer to facility Plan Continue OT POC. Goals OT GOAL DETAILS Goal Established Date Time Frame Goal Status OT Goal 1: Pt will perform functional toilet transfer including entering/exiting bathroom with mod I using DME as needed. 05/07/24 2 weeks OT Goal 2: Pt will perform three consecutive grooming activities standing at the sink with mod I using DME as needed. 05/07/24 2 weeks OT Goal 3: Pt will perform three consecutive LB dressing activities in sitting/standing with mod I using DME/AE as needed. 05/07/24 2 weeks OT Goal 4: Pt will verbalize/demonstrate sternal precautions with 100% accuracy in order to safely participate in her ADL routine. 05/07/24 2 weeks Written by Betty Casas on 05/09/24 at 4:55 PM. * Progress Notes - Fariha Sands - 05/09/2024 1:25 PM EDT Physical Therapy Treatment Patient Name: Rere Hunter Today's Date: 05/09/2024 PT Discharge Recommendations: Acute rehab Equipment Recommended: Defer to facility Subjective I think I'm at home in [place]. Pt and RN agreeable to PT treatment session this date. Participants in Care Family/Caregiver Present: No Tester Equipment: Not Applicable Presentation Oxygen Therapy: Supplemental oxygen O2 Delivery Method: Nasal cannula O2 Flow Rate (L/min): 4 L/min Lines and Tubes: Telemetry Pacer Wires (Active) Y Chest Tube 1 and 2 Right Mediastinal 32 Fr. Left Mediastinal 32 Fr. (Active) Y Chest Tube 3 and 4 Pleural 32 Fr. Pleural 32 Fr. (Active) Negative Pressure Wound Therapy Sternum (Active) Peripheral IV 05/08/24 Anterior;Right Forearm (Active) Peripheral IV 05/09/24 Right;Upper Arm (Active) Pre-Session: Supine, Head of bed elevated, Lines intact Pre-Session Comments: RN gave therapist permission to see pt for therapy Post-Session: Sitting in chair, Lines intact, RN notified, Call light in reach, Self-releasing restraint alternative, chair alarm Post-Session Comments: All needs met. Precautions Medical Precautions: Fall precautions, Sternal Objective Pain Pt does not endorse any pain this date. Pt positioned for comfort in chair following session with pillows for UE support and legs elevated. RN notified. Delirium Screening Urban Agitation Sedation Scale (RASS): Drowsy Confusion Assessment Method-ICU (CAM-ICU/PCAM-ICU) Feature 3: Altered Level of Consciousness: Positive Bed Mobility Bed Mobility Exam: Rolling/Turning Level of Harmon: Moderate assist (50% patient effort) Physical/Nonphysical Assist: Verbal Cues, Nonverbal cues (demo/gestures), Additional assist utilized for safety, Moderate cues Bed Mobility Exam: Scooting/Bridging Level of Harmon: Maximum assist (25% patient's effort) Physical/Nonphysical Assist: Verbal Cues, Minimal cues, Additional assist utilized for safety Bed Mobility Exam: Supine to Sit Level of Harmon: Moderate assist (50% patient's effort) Physical/Nonphysical Assist: Verbal Cues, Nonverbal cues (demo/gestures), Moderate cues, HOB elevated Transfers Transfer Exam: Sit to stand Level of Harmon: Minimum assist (75% patient's effort) Physical/Nonphysical Assist: Verbal Cues, Moderate cues, Additional assist utilized for safety, Nonverbal cues (demo/gestures) Assistive Device: Hand held assist Transfer Exam: Stand to Sit Level of Harmon: Minimum assist (75% patient's effort) Physical/Nonphysical Assist: Verbal Cues, Additional assist utilized for safety, Moderate cues, Nonverbal cues (demo/gestures) Assistive Device: Hand held assist Transfer Exam: Bed to Chair/Chair to Bed Level of Harmon: Minimum assist (75% patient's effort) Physical/Nonphysical Assist: Verbal Cues, Moderate cues, Additional assist utilized for safety, Nonverbal cues (demo/gestures) Type of Transfer: Sidesteps Assistive Device: Hand held assist Therapeutic Activity (38 minutes) See above sections for task specific interventions: bed mobility and transfers. Pt requires maximalcueing for sequencing/safety with transfers. Pt requires increased time in sitting on EOB to acclimate to upright position. BP at 91/64 (73) in supine at beginning of session with increased BP to 100/75 (84) when sitting EOB for increased time. BP dropped to 82/42 (56) in standing with pt appearingpale, indicating quick transition to sitting in chair with legs elevated and moderate verbal and tactile cues to perform ankle pumps. BP returned to 89/49 (63) in chair with quick recovery of physical symptoms. Pt with decreased ability to maintain eye opening with maximal cues needed for forward gaze and upright posture throughout entire session. Coordination of care with nursing occurring throughout session to monitor vital signs and safely leave pt at chair level. Further functional task progression and ambulation deferred this date 2/2 unstable BP numbers in standing and increased drowsiness this date. Assessment Pt demonstrates increased changes in cognitive status this date impacting ability to participate intherapy this date. Pt also limited by fluctuating BP with hypotensive responses to positional changes. Pt is a high fall risk. Pt will continue to benefit from skilled PT services to decrease fall risk, progress towards independence with functional mobility, and to promote safe return to home upon d/c when appropriate. PT services recommended to optimize potential level of function. PT Recommendations Discharge Destination: Acute rehab Discharge Equipment: Defer to facility Plan Continue per PT POC. PT Goals PT GOAL DETAILS Goal Established Date Time Frame Goal Status PT Goal 1: Pt will perform supine<>sit transfers with CGA and HOB flat, no use of bed rails. 05/07/24 2 weeks PT Goal 2: Pt will perform sit to stand and bed to chair transfers with Stefan and LRD. 05/07/24 2 weeks PT Goal 3: Pt will ambulate >600ft with Stefan and LRD. 05/07/24 2 weeks PT Goal 4: Pt will safely ascend/descend 3 steps with SBA, one handrail. 05/07/24 2 weeks Written by Fariha Sands on 05/09/24 at 1:42 PM. Cosigned by Divina Yousif at 05/09/2024 2:15 PM EDT Associated attestation - Divina Yousif - 05/09/2024 2:15 PM EDT As the supervising therapist, I was present during the entire PT evaluation/treatment and have reviewed and agree with this document written by the student physical therapist for this patient on thisdate/time. Divina Yousif PT, DPT * Progress Notes - Gregg Burdick MD - 05/09/2024 11:17 AM EDTAssociated Order(s): Critical Care Post-Procedure Diagnose(s): S/P CABG x 4 Critical Care Performed by: Gregg Burdick MD Authorized by: Gregg Burdick MD Critical care provider statement: Critical care time (minutes): 40 Critical care time was exclusive of: Separately billable procedures and treating other patients andteaching time Critical care was time spent personally by me on the following activities: Development of treatmentplan with patient or surrogate, discussions with primary provider, evaluation of patient's responseto treatment, examination of patient, obtaining history from patient or surrogate, ordering and performing treatments and interventions, ordering and review of laboratory studies and ordering and review of radiographic studies I assumed subsequent critical care for this patient from a provider in my division, on the same day: yes Critical care statement: I saw and evaluated the patient with the resident/ fellow. I discussed thecase with the resident/ fellow and agree with the findings and plan as documented. HPI Rere Hunter is a 53 y.o. female POD 3 4VCABG Past 24 hours: PM: Recheck K - 4.7. Increased am metop dose. Hgb 7.6 - 1upRBCs AM: A&Ox4, GCS 15 anxious, ST 105 EKG ordered for chest pain unremarkable, ASA/ Statin/metop to[address] surg, CT Op [address] site, on 2lNC 96% CXR reviewed, BM 05/07 senna/docusate + miralax, BS 70's after d50 started on D5 ggt @ 50 pt is nauseated episode of emesis received zofran and compazine, LFT KUB reglan and prealbumin ordered, poor PO intake, Cr/BUN 1.1/1.2 -[address] surg+ 40 lasix, RFP mg this afternoon recheck H/H at noon after 1u overnight, on hep subcutaneous and PPI Edited by: Miguel Downey MD at 05/09/2024 1117 Lines/Drains/Tubes: Patient Lines/Drains/Airways Status Active Active LDAs Name Placement date Placement time Site Days Peripheral IV 05/08/24 Anterior;Right Forearm 05/08/24 1730 Forearm less than 1 Peripheral IV 05/09/24 Right;Upper Arm 05/09/24 1011 Arm less than 1 Y Chest Tube 1 and 2 Right Mediastinal 32 Fr. Left Mediastinal 32 Fr. 05/06/241920 -- 2 Y Chest Tube 3 and 4 Pleural 32 Fr. Pleural 32 Fr. 05/06/242130 -- 2 Negative Pressure Wound Therapy Sternum 05/06/241939 Sternum 2 ROS: GCS: Jaida Coma Scale Score: 14 Review of Systems 14 point ROS reviewed and otherwise negative or unobtainable except as noted above or in HPI. Vital signs: Visit Vitals BP 110/76 Pulse 105 Temp 36.8 ??C (98.2 ??F) (Oral) Ht 1.549 m (5' 1 ) Wt 61.7 kg (136 lb 0.4 oz) SpO2 97% BMI 25.70 kg/m?? Intake/Output Summary (Last 24 hours) at 05/09/2024 1119 Last data filed at 05/09/2024 0700 Gross per 24 hour Intake 1320 ml Output 433 ml Net 887 ml Physical Exam Vitals reviewed. Constitutional: Alert oriented GCS 15 pt reports sleeping well last night HENT: Nose: No congestion or rhinorrhea. Mouth: Mucous membranes are moist. Eyes: General: No scleral icterus. Pupils: Pupils are equal, round, and reactive to light. Cardiovascular: Rate and Rhythm: Normal rate and regular rhythm. Pulmonary: Effort: Pulmonary effort is normal. On 2LNC Comments: breath sounds bilaterally Chest: Comments: Chest tubes (2 mediastinal, left pleural, right pleural) A&V pacing wires Sternotomy incision covered CDI, CT dressing site changed blood noted on dressing Abdominal: General: abdominal distention noted Palpations: Abdomen is soft. Musculoskeletal: 4/4 upper and lower extremities normal ROM Skin: General: Skin is warm and dry. Capillary Refill: Capillary refill takes less than 2 seconds. Neurological: General: No focal deficit present. Mental Status: A&Ox4 GCS 15 Comments: Following commands , OOB Labs in last 18 hours: CBC WBC 16.81 (H) Hb 7.6 (L) Plt 129 (L) Hct 22.5 (L) ANC ?? INR ??, PTT ??, Anti-Xa ?? BMP Na 143 Cl 107 BUN 35 (H) Glu 78 K 4.7 Co2 25 Cr 1.72 (H) Ca 8.1 (L) iCa ?? Mg ??, Phos ?? Lactate ?? LFT AST ?? AlkPhos ?? T Prot ?? ALK ?? Bili ?? Alb ?? D.Bili ?? Imaging as available: No results found for this or any previous visit. === 05/01/24 === CT CHEST WO IV CONTRAST - Narrative - CLINICAL INDICATION: CABG work up TECHNIQUE: Multiple CT helical images were obtained from thoracic inlet through upper abdomen without administration of IV contrast. Total DLP (Dose-Length Product): 125.46 mGy.cm. Please note: The reported value represents the total of one or more individual components during the CT acquisition on this date and at this time, and as such, the same value may appear in more than one CT report depending on the interpreting/reporting physicians. COMPARISON: None. FINDINGS: Mediastinum and Pleura: No mediastinal adenopathy. Severe coronary artery calcifications. No pleural or pericardial effusion. 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 Lungs: A 1.5 cm left upper lobe groundglass nodule (series 2 image 37). No focal consolidation. Upper Abdomen: Diffuse hepatic steatosis. Post cholecystectomy. Musculoskeletal: No suspicious lytic or sclerotic lesion. - Impression - Left upper lobe groundglass nodule. Recommend follow-up in 6 months. Severe atherosclerosis of the coronary arteries. CRITICAL RESULT: No. COMMUNICATION: Per this written report. By electronically signing this report, I, the attending physician, attest that I have personally reviewed the images/data for the above examination(s) and agree with the final edited report. Drafted by GER Mckee on 05/02/2024 8:02 AM Final report signed by Camila Barth MD on 05/02/2024 8:22 AM === 05/01/24 === XR CHEST 1 VIEW (Preliminary) This result has not been signed. Information might be incomplete. - Narrative - CLINICAL INDICATION: post op TECHNIQUE: XR CHEST 1 VIEW COMPARISON: 05/08/2024 FINDINGS: Interval removal of the right IJ sheath. Stable position of bilateral chest tubes and mediastinal drains. Interval development of a small right apical pneumothorax. Persistent bilateral low lung volumes and atelectasis. Stable cardiac and mediastinal contours. No pleural effusion. - Impression - Interval removal of the right IJ sheath. Interval development of a small right apical pneumothorax. CRITICAL RESULT: No. COMMUNICATION: Per this written report. Preliminary report signed by Jaguar Ambrose M.D. on 05/09/2024 11:01 AM Reviewed and agree with above. Assessment and Plan: This patient is critically ill. 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 Surgery consulted CABG work-up pending 05/07 POD 1 4vCABG 05/08 [address] recs ASA BB statin 05/[address] recs CXR, diuresis and metoprolol to 50 Anxiety and depression Yes Overview Addendum 05/09/2024 11:15 AM by Miguel Downey MD 05/07 Continue home bupropion XL 300 mg daily Continue home citalopram 40 mg daily Continue PRN hydroxyzine 25 mg q6 05/08 continue home meds 05/09 continue home meds / pt reports sleeping well overnight COPD (chronic obstructive pulmonary disease) ([facility]/HCC) Yes Overview Addendum 05/09/2024 11:13 AM by Miguel Downey MD 05/07 Duo nebs q6 SPO2 goal >88% On 4LNC 05/08 on 2LNC 05/09 on 2LNC +40 lasix NSTEMI (non-ST elevated myocardial infarction) ([facility] [place]) Yes Overview Addendum 05/09/2024 11:14 AM by Miguel Downey MD Diagnosed at OSH with elevated troponins of 0.05 to 0.23 to 0.16 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, 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 Repeat troponins pending 05/07 POD 1 4V CABG 05/09 EKG ordered and reviewed no signs of ST changes GERD (gastroesophageal reflux disease) Yes Overview Addendum 05/09/2024 11:14 AM by Miguel Downey MD Continue Protonix 40 mg daily 05/07 extubated, no on home PPI dc'd 05/08 pt denies any GERD symptoms 05/09 + PPI for reflux Prolonged Q-T interval on ECG Yes Overview Signed 05/07/2024 10:07 AM by Miguel Downey MD 05/07 EKG reviewed Hypercholesteremia Yes Overview Signed 05/07/2024 10:08 AM by Miguel Downey MD 05/07 + statin Hypoalphalipoproteinemia Yes Overweight Yes THOM (obstructive sleep apnea) Yes Overview Addendum 05/09/2024 11:15 AM by Miguel Downey MD 05/07 pt declines home CPAP use 05/08 on 2lNC 05/09 96% on 2lNC S/P CABG x 4 Not Applicable Overview Addendum 05/09/2024 11:15 AM by Miguel Downey MD 05/06 w/Reda 4 chest tubes (mediastinal x2, left pleural, right pleural) A&V wires SBP <140 Aspirin, statin, beta stacey as clinically appropriate 05/07 epi .03 weaning, holding beta block (epi .03) 05/09 off all gtts NSR continue ICU level of care per CT surg Low cardiac output syndrome (CMS/HCC) Unknown Overview Addendum 05/09/2024 11:16 AM by Miguel Downey MD LVEF 45% Requiring epi 05/07 epi wean currently .03 Epi off 05/09 SBP within goal Hypertension Unknown Overview Addendum 05/09/2024 10:56 AM by Reyna Mcdonald APRN Requiring nitroglycerin gtt upon arrival to ICU 05/07 off gtts, SBP within goal 05/09: increased metop to 50 BID Hyperkalemia Unknown Overview Addendum 05/09/2024 11:16 AM by Miguel Downey MD Intro op max 7.3 Received dextrose, insulin, calcium, lasix intra-op Treat K>5.2 05/07 K 5.0 05/08 K 4.6 05/09 K 4.7 Cardiac volume overload Unknown Overview Addendum 05/09/2024 11:16 AM by Miguel Downey MD Diuresis as clinically indicated 05/[address] surg 05/08 +20 lasix 05/09 + [address] surg Hypoglycemia Unknown Overview Addendum 05/09/2024 11:17 AM by Miguel Downey MD - continue to monitor, checking LFTs - D5 gtt at 50 Nausea with vomiting Unknown Overview Addendum 05/09/2024 11:04 AM by Reyna Mcdonald APRN - KUB pending 05/09 - Reglan - Simethicone for gastric bubble - may need NG placement, continue to monitor Miguel Downey MD * Procedures - Rhona Abrams RN - 05/09/2024 10:10 AM EDTAssociated Order(s): Insert peripheral IV Insert peripheral IV Performed by: Rhona Abrams RN Authorized by: Maite Austin MD Hand hygiene: Hand hygiene performed prior to insertion Inserted using aseptic techniques: Yes Preparation: Skin prepped with chg Orientation: Right and upper (cephalic) Location: Arm Catheter placed: Peripheral IV Catheter size: 20g/1.16in Line Technique: Ultrasound Guidance Number of attempts: 2 IV flushes: Without difficulty and positive blood return noted and IV luer locked Patient tolerance: Patient tolerated the procedure well and there were no complications IV site covered with: Transparent semipermeable dressing Comments: By Michelle Velasco RN * Progress Notes - Uriah Groves PA - 05/09/2024 7:48 AM EDT Subjective No interval change Review of Systems Objective Physical Exam Last Recorded Vitals Blood pressure 110/76, pulse 105, temperature 36.8 ??C (98.2 ??F), temperature source Oral, resp. rate (!) 32, height 1.549 m (5' 1 ), weight 61.7 kg (136 lb 0.4 oz), SpO2 97%. Assessment/Plan Principal Problem: CAD, multiple vessel Active Problems: Anxiety and depression COPD (chronic obstructive pulmonary disease) ([facility]/HCC) NSTEMI (non-ST elevated myocardial infarction) ([facility] [place]) GERD (gastroesophageal reflux disease) Prolonged Q-T interval on ECG Hypercholesteremia Hypoalphalipoproteinemia Overweight THOM (obstructive sleep apnea) S/P CABG x 4 On mechanically assisted ventilation ([facility]/HCC) Low cardiac output syndrome ([facility]/HCC) Hypertension Hyperkalemia Cardiac volume overload 53 yrs female who underwent 4v CABG on 05/06/[address] Austin. -ASA, statin -increase metoprolol to 50mg BID -DVT ppx -wean supplemental oxygen -Keep tubes and wires -Continue wound vac -lasix 40mg iv -limit narcotics -delirium precautions-frequent reorientation, windows open, no sleeping during the day -Stay ICU * Consults - Rajan Thao - 05/08/2024 1:50 PM EDT Pastoral Care Note Referral From: Nurse Pastoral Care Provided For: Patient Patient Profile: Consult Reasons: Initial visit Unable to Assess: Medical status Spiritual Assessment: Spiritual Needs: Emotional support, Spiritual support Spiritual Issues: Anxious(ness) Interventions: Interventions Provided: Emotional support, Spiritual support Pastoral Care Outcomes: Patient Outcomes: Unable to Assess Rere appeared somewhat confused in that she was not able to say what medically has been happeningto her, she also answered in generalities when asked about her family and her home. Supervisor [employer] provided pastoral support. * Progress Notes - Gregg Burdick MD - 05/08/2024 1:26 PM EDTAssociated Order(s): Critical Care Post-Procedure Diagnose(s): S/P CABG x 4; CAD, multiple vessel Critical Care Performed by: Gregg Burdick MD Authorized by: Gregg Burdick MD Critical care provider statement: Critical care time (minutes): 40 Critical care time was exclusive of: Separately billable procedures and treating other patients andteaching time Critical care was time spent personally by me on the following activities: Development of treatmentplan with patient or surrogate, discussions with primary provider, evaluation of patient's responseto treatment, examination of patient, obtaining history from patient or surrogate, ordering and performing treatments and interventions, ordering and review of laboratory studies, ordering and reviewof radiographic studies and review of old charts I assumed subsequent critical care for this patient from a provider in my division, on the same day: yes Critical care statement: I saw and evaluated the patient with the resident/ fellow. I discussed thecase with the resident/ fellow and agree with the findings and plan as documented. 05/08/24 Rere Hunter HPI Rere Hunter is a 53 y.o. female POD [address] Austin Past 24 hours: PM: 250cc, hyperk x1, benadryl for itching AM: POD 2m A&Ox3 GCS 15, dc'd hydromorphone, sinus tach 110's VVI 60/10 meto to 25 BID, 2LNC, BM 05/07 on reg reg diet, Cr/BUN 1.8/28 +-383 + 20 lasix, subqhep, dc A line, CVC and [place] Edited by: Miguel Downey MD at 05/08/2024 1326 Lines/Drains/Tubes: Patient Lines/Drains/Airways Status Active Active LDAs Name Placement date Placement time Site Days Peripheral IV 05/02/24 Anterior;Left;Proximal Forearm 05/02/24 0002 Forearm 6 Peripheral IV 05/02/24 Anterior;Right Forearm 05/02/24 0000 Forearm 6 Urethral Catheter Non-latex;Temperature probe 16 Fr. 05/06/24 0938 -- 2 Y Chest Tube 1 and 2 Right Mediastinal 32 Fr. Left Mediastinal 32 Fr. 05/06/241920 -- 1 Y Chest Tube 3 and 4 Pleural 32 Fr. Pleural 32 Fr. 05/06/242130 -- 1 Negative Pressure Wound Therapy Sternum 05/06/241939 Sternum 1 ROS: GCS: Jaida Coma Scale Score: 14 Review of Systems 14 point ROS reviewed and otherwise negative or unobtainable except as noted above or in HPI. Vital signs: Visit Vitals BP 124/70 Pulse 109 Temp 36.8 ??C (98.2 ??F) Resp (!) 33 Ht 1.549 m (5' 1 ) Wt 61.1 kg (134 lb 11.2 oz) SpO2 93% BMI 25.45 kg/m?? Smoking Status Every Day BSA 1.62 m?? Intake/Output Summary (Last 24 hours) at 05/08/2024 1331 Last data filed at 05/08/2024 1200 Gross per 24 hour Intake 1030 ml Output 2645 ml Net -1615 ml Physical Exam Vitals reviewed. Constitutional: Alert oriented GCS 15 HENT: Nose: No congestion or rhinorrhea. Mouth/Throat: Mouth: Mucous membranes are moist. Eyes: General: No scleral icterus. Pupils: Pupils are equal, round, and reactive to light. Cardiovascular: Rate and Rhythm: Normal rate and regular rhythm. Pulmonary: Effort: Pulmonary effort is normal. On 2LNC Comments: breath sounds bilaterally Chest: Comments: Chest tubes (2 mediastinal, left pleural, right pleural) A&V pacing wires Sternotomy incision covered CDI Abdominal: General: There is no distension. Palpations: Abdomen is soft. Musculoskeletal: 4/4 upper and lower extremities normal ROM Skin: General: Skin is warm and dry. Capillary Refill: Capillary refill takes less than 2 seconds. Neurological: General: No focal deficit present. Mental Status: A&Ox4 GCS 15 Comments: Following commands Labs in last 18 hours: CBC WBC 16.25 (H) Hb 9.2 (L) Plt 159 Hct 26.6 (L) ANC ?? INR ??, PTT ??, Anti-Xa ?? BMP Na 148 (H) Cl 115 (H) BUN 28 (H) Glu 119 (H) K 4.6 Co2 20 (L) Cr 1.84 (H) Ca 8.2 (L) iCa 4.7 Mg 3.1 (H), Phos 6.6 (H) Lactate 3.2 (H) LFT AST ?? AlkPhos ?? T Prot ?? ALK ?? Bili ?? Alb ?? D.Bili ?? Imaging as available: No results found for this or any previous visit. === 05/01/24 === CT CHEST WO IV CONTRAST - Narrative - CLINICAL INDICATION: CABG work up TECHNIQUE: Multiple CT helical images were obtained from thoracic inlet through upper abdomen without administration of IV contrast. Total DLP (Dose-Length Product): 125.46 mGy.cm. Please note: The reported value represents the total of one or more individual components during the CT acquisition on this date and at this time, and as such, the same value may appear in more than one CT report depending on the interpreting/reporting physicians. COMPARISON: None. FINDINGS: Mediastinum and Pleura: No mediastinal adenopathy. Severe coronary artery calcifications. No pleural or pericardial effusion. 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 Lungs: A 1.5 cm left upper lobe groundglass nodule (series 2 image 37). No focal consolidation. Upper Abdomen: Diffuse hepatic steatosis. Post cholecystectomy. Musculoskeletal: No suspicious lytic or sclerotic lesion. - Impression - Left upper lobe groundglass nodule. Recommend follow-up in 6 months. Severe atherosclerosis of the coronary arteries. CRITICAL RESULT: No. COMMUNICATION: Per this written report. By electronically signing this report, I, the attending physician, attest that I have personally reviewed the images/data for the above examination(s) and agree with the final edited report. Drafted by GER Mckee on 05/02/2024 8:02 AM Final report signed by Camila Barth MD on 05/02/2024 8:22 AM === 05/01/24 === XR CHEST 1 VIEW - Narrative - CLINICAL INDICATION: Post op TECHNIQUE: XR CHEST 1 VIEW COMPARISON: 05/07/2024 FINDINGS: Interval extubation. [place]is catheter has been removed. Right IJ introducer sheath remains in place. Unchanged position of bilateral chest tubes and mediastinal drains. Stable cardiomediastinal silhouette. Interval development of hazy left lung opacities. No large pleural effusion or discrete pneumothorax. - Impression - Interval development of hazy left lung opacities, possibly reflective of atelectasis. Lines and tubes as above. CRITICAL RESULT: No. COMMUNICATION: Per this written report. ATTESTATION: Not applicable. Drafted by Svetlana Scott MD on 05/08/2024 7:34 AM Final report signed by Svetlana Scott MD on 05/08/2024 7:36 AM Reviewed and agree with above. Assessment and Plan: This patient is critically ill. 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 Surgery consulted CABG work-up pending 05/07 POD 1 4vCABG 05/08 [address] recs ASA BB statin Anxiety and depression Yes Overview Addendum 05/08/2024 1:29 PM by Miguel Downey MD 05/07 Continue home bupropion XL 300 mg daily Continue home citalopram 40 mg daily Continue PRN hydroxyzine 25 mg q6 05/08 continue home meds COPD (chronic obstructive pulmonary disease) ([facility] [place]) Yes Overview Addendum 05/08/2024 1:29 PM by Miguel Downey MD 05/07 Duo nebs q6 SPO2 goal >88% On 4LNC 05/08 on 2LNC NSTEMI (non-ST elevated myocardial infarction) ([facility] [place]) Yes Overview Addendum 05/07/2024 10:06 AM by Miguel Downey MD Diagnosed at OSH with elevated troponins of 0.05 to 0.23 to 0.16 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, 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 Repeat troponins pending 05/07 POD 1 4V CABG GERD (gastroesophageal reflux disease) Yes Overview Addendum 05/08/2024 1:30 PM by Miguel Downey MD Continue Protonix 40 mg daily 05/07 extubated, no on home PPI dc'd 05/08 pt denies any GERD symptoms Prolonged Q-T interval on ECG Yes Overview Signed 05/07/2024 10:07 AM by Miguel Downey MD 05/07 EKG reviewed Hypercholesteremia Yes Overview Signed 05/07/2024 10:08 AM by Miguel Downey MD 05/07 + statin Hypoalphalipoproteinemia Yes Overweight Yes THOM (obstructive sleep apnea) Yes Overview Addendum 05/08/2024 1:30 PM by Miguel Downey MD 05/07 pt declines home CPAP use 05/08 on 2lNC S/P CABG x 4 Not Applicable Overview Addendum 05/07/2024 10:14 AM by Miguel Downey MD 05/06 w/[place] 4 chest tubes (mediastinal x2, left pleural, right pleural) A&V wires SBP <140 Aspirin, statin, beta stacey as clinically appropriate 05/07 epi .03 weaning, holding beta block (epi .03) On mechanically assisted ventilation (CMS/HCC) Not Applicable Overview Addendum 05/08/2024 1:30 PM by Miguel Downey MD Arrived to ICU intubated 05/07 extubated to 4LNC 05/08 resolved Low cardiac output syndrome (CMS/HCC) Unknown Overview Addendum 05/07/2024 10:16 AM by Miguel Downey MD LVEF 45% Requiring epi 05/07 epi wean currently .03 Hypertension Unknown Overview Addendum 05/07/2024 10:17 AM by Miguel Downey MD Requiring nitroglycerin gtt upon arrival to ICU 05/07 off gtts, SBP within goal Hyperkalemia Unknown Overview Addendum 05/08/2024 1:31 PM by Miguel Downey MD Intro op max 7.3 Received dextrose, insulin, calcium, lasix intra-op Treat K>5.2 05/07 K 5.0 05/08 K 4.6 Cardiac volume overload Unknown Overview Addendum 05/08/2024 1:30 PM by Miguel Downey MD Diuresis as clinically indicated 05/[address] surg 05/08 +20 lasix Miguel Downey MD * Progress Notes - Luis Starkey MD - 05/08/2024 7:00 AM EDT Images from the original note were not included. CARDIOTHORACIC SURGERY PROGRESS NOTE SUBJECTIVE Acute Events/Last 24 Hrs: Extubated yesterday, weaned off pressors, got up to chair. Delirious overnight, placed in restraints. OBJECTIVE All laboratory data, images, tracings, and vital sign data for past 24 hours are personally reviewed unless otherwise noted. Physical Exam VITALS (last 24h) 05/08/2024 4:00 AM 05/08/2024 5:00 AM 05/08/2024 6:00 AM 05/08/2024 7:00 AM 05/08/2024 8:00 AM 05/08/2024 8:16 AM 05/08/2024 9:00 AM Vitals Heart Rate 107 107 108 113 116 116 113 Temp 36.5 C 36.5 C 36.5 C 36.4 C 36.5 C 36.5 C Resp 25 21 32 31 33 18 29 O2 Delivery Method: Nasal cannula General: AAOx2, alert, no distress or agitation HEENT: normocephalic, atraumatic, normal external ears and nose Eyes: no scleral icterus, normal conjunctiva Neck: supple, no trachea deviation Lungs: symmetric chest rise, non labored on 2L NC supplemental oxygen Heart: Regular rate/sinus tach, well perfused Abdomen: soft NT/ND Extremities: no peripheral edema Skin: no rash, no cyanosis and warm to touch Psychiatric: oriented to person/place/time and normal mood/affect INCISIONS: Sternum - wound vac Leg - ryanne bandages c/d/I Chest tubes -20, ss drainage, no air leak Intake/Output Intake/Output Summary (Last 24 hours) at 05/08/2024 1135 Last data filed at 05/08/2024 0900 Gross per 24 hour Intake 1031.78 ml Output 2835 ml Net -1803.22 ml Results Labs in last 18 hours CBC WBC 16.25 (H) Hb 9.2 (L) Plt 159 Hct 26.6 (L) ANC ?? INR ??, PTT ??, Anti-Xa ?? BMP Na 148 (H) Cl 115 (H) BUN 28 (H) Glu 119 (H) K 4.6 Co2 20 (L) Cr 1.84 (H) Ca 8.2 (L) iCa 4.7 Mg 3.1 (H), Phos 6.6 (H) Lactate 3.2 (H) LFT AST ?? AlkPhos ?? T Prot ?? ALK ?? Bili ?? Alb ?? D.Bili ?? Results from last 7 days Lab Units 05/01/24 7468 HEMOGLOBIN A1C % 5.3 Imaging No echocardiogram results found for the past 14 days No valid procedures specified. ASSESSMENT & PLAN Principal Problem: CAD, multiple vessel Active Problems: Anxiety and depression COPD (chronic obstructive pulmonary disease) (CMS/HCC) NSTEMI (non-ST elevated myocardial infarction) ([facility]) GERD (gastroesophageal reflux disease) Prolonged Q-T interval on ECG Hypercholesteremia Hypoalphalipoproteinemia Overweight THOM (obstructive sleep apnea) S/P CABG x 4 On mechanically assisted ventilation ([facility]/HCC) Low cardiac output syndrome ([facility]) Hypertension Hyperkalemia Cardiac volume overload 53 yrs female who underwent 4v CABG on 05/06/[address] Austin. -ASA, statin -metop to 25mg BID -DVT ppx -wean supplemental oxygen -Keep tubes and wires -Continue wound vac -limit narcotics -delirium precautions-frequent reorientation, windows open, no sleeping during the day -Stay ICU Cardiothoracic Surgery 05/08/24 11:35 AM Cosigned by Maite Austin MD at 05/08/2024 4:19 PM EDT Associated attestation - Maite Austin MD - 05/08/2024 4:19 PM EDT I saw and evaluated the patient with the resident/fellow. I discussed the case with the resident/fellow and agree with the findings and plan as documented. * Nursing Note - Libby Mckeon RN - 05/07/2024 10:00 PM EDT Pt discovered to have bit/eaten the bottom of a styrofoam cup. When asked what she was doing, patient stated that she needed to get to the water. Pt acknowledged that she did swallow the styrofoam.RN got patient a fresh cup of water to call out or notify RN in ordered to get water. RN instructedpatient not to eat or bite styrofoam cups. Pt bit a second cup not long after. All cups and non food items discarded from patient's room. RN instructed pt to use the call light to have RN give sips of water. notified on rounds of event. Nonew orders at this time. * Progress Notes - Benja Divina R - 05/07/2024 1:43 PM EDT Physical Therapy Evaluation Patient Name: Rere Hunter Today's Date: 05/07/2024 PT Discharge Recommendations: Acute rehab Equipment Recommended: Defer to facility History Rere Hunter is 53 y.o. female admitted 05/01/2024 for work-up of CAD, multiple vessel. Problem List Active Hospital Problems Diagnosis Date Noted S/P CABG x 4 05/06/2024 On mechanically assisted ventilation ([facility]) 05/06/2024 Low cardiac output syndrome ([facility]) 05/06/2024 Hypertension 05/06/2024 Hyperkalemia 05/06/2024 Cardiac volume overload 05/06/2024 Prolonged Q-T interval on ECG 05/04/2024 Hypercholesteremia 05/04/2024 Hypoalphalipoproteinemia 05/04/2024 Overweight 05/04/2024 THOM (obstructive sleep apnea) 05/04/2024 Anxiety and depression 05/01/2024 COPD (chronic obstructive pulmonary disease) ([facility] [place]) 05/01/2024 CAD, multiple vessel 05/01/2024 NSTEMI (non-ST elevated myocardial infarction) ([facility]) 05/01/2024 GERD (gastroesophageal reflux disease) 05/01/2024 Procedures 05/06/2024 Procedure(s): CABG, 2 OR MORE VESSELS Past Medical History Patient has a past medical history of Anxiety, COPD (chronic obstructive pulmonary disease) ([facility]) (05/01/2024), Depression, GERD (gastroesophageal reflux disease) (05/01/2024), Tobacco use (05/01/2024), and Tremor (05/01/2024). Past Surgical History Patient has a past surgical history that includes section, classic; Cholecystectomy; Shoulder surgery; Abdominal adhesion surgery; and Hand surgery (Right). Precautions Medical Precautions: Fall precautions, Sternal Subjective Ughh. Pt and RN agreeable to PT services this date. Participants in Care Family/Caregiver Present: No Presentation Oxygen Therapy: Supplemental oxygen O2 Delivery Method: Nasal cannula O2 Flow Rate (L/min): 2 L/min Lines and Tubes: Telemetry Arterial Line 05/06/24 Left Radial (Active) Pacer Wires (Active) CVC Single Lumen 05/06/24 Right Internal jugular (Active) Urethral Catheter Non-latex;Temperature probe 16 Fr. (Active) Y Chest Tube 1 and 2 Right Mediastinal 32 Fr. Left Mediastinal 32 Fr. (Active) Y Chest Tube 3 and 4 Pleural 32 Fr. Pleural 32 Fr. (Active) Negative Pressure Wound Therapy Sternum (Active) Peripheral IV 05/02/24 Anterior;Left;Proximal Forearm (Active) Peripheral IV 05/02/24 Anterior;Right Forearm (Active) Pre-Session: Supine, Head of bed elevated, Lines intact Post-Session: Sitting in chair, Lines intact, RN notified, Call light in reach Home Living/Set-up Lives With: Family (Aunt) Home Type: Mobile home Home Layout: Stairs to enter with rails, One level Number of Stairs: 3 Home Living Comments: unable to answer additional home set-up/PLOF questions 2/2 cognitive status Prior Level of Function Unable to answer PLOF questions 2/2 cognitive status. Patient/Family Goals to feel better Objective Pain Pt endorsed surgical site pain, RN aware. Pt positioned for comfort at close of session. Delirium Screening Urban Agitation Sedation Scale (RASS): Alert and calm Confusion Assessment Method-ICU (CAM-ICU/PCAM-ICU) Feature 3: Altered Level of Consciousness: Negative Cognition Overall Cognitive Status: Impaired Arousal/Alertness: Delayed responses to stimuli Mood/Behavior: Lethargic, Flat affect Orientation Level: Oriented to place, Oriented to situation, Oriented to person Orientation Level Comments: Poor historian this date 2/2 lethargy Single Step Commands: With increased time, With repetition, 100% of the time Multi-Step Commands: (unable to follow multi-step commands this date) Method of Communication: Verbal Right Upper Extremity Examination RUE Assessment: Within Functional Limits Manual Muscle Testing - RUE: (NT 2/2 sternal precautions) Sensation Light Touch: Right Upper Extremity: (NT 2/2 cognitive status) Left Upper Extremity Examination LUE ROM Assessment LUE Assessment: Within Functional Limits Manual Muscle Testing - LUE Manual Muscle Testing - LUE: (NT 2/2 sternal precautions) Sensation Light Touch: Left Upper Extremity: (NT 2/2 cognitive status) Right Lower Extremity Examination RLE ROM Assessment RLE Assessment: Within Functional Limits Manual Muscle Testing - RLE Manual Muscle Testing - RLE: Within functional limits Sensation Light Touch: Right Lower Extremity: (NT 2/2 cognitive status) Left Lower Extremity Examination LLE Assessment: Within Functional Limits Manual Muscle Testing: Within functional limits Sensation Light Touch: Left Lower Extremity: (NT 2/2 cognitive status) Bed Mobility Bed Mobility Exam: Scooting/Bridging Level of Harmon: Maximum assist (25% patient's effort) (to scoot to EOB while seated) Physical/Nonphysical Assist: Nonverbal cues (demo/gestures), Verbal Cues Bed Mobility Exam: Supine to Sit Level of Harmon: Maximum assist (25% patient's effort) Physical/Nonphysical Assist: Additional assist utilized for safety, Nonverbal cues (demo/gestures),Verbal Cues, HOB elevated Transfers Transfer Exam: Sit to stand Level of Harmon: Minimum assist (75% patient's effort) Physical/Nonphysical Assist: Verbal Cues, Nonverbal cues (demo/gestures), 1 person + 1 person to manage equipment Transfer Exam: Stand to Sit Level of Harmon: Minimum assist (75% patient's effort) Physical/Nonphysical Assist: Verbal Cues, Nonverbal cues (demo/gestures), 1 person + 1 person to manage equipment Transfer Exam: Bed to Chair/Chair to Bed Level of Harmon: Minimum assist (75% patient's effort) Physical/Nonphysical Assist: Verbal Cues, Nonverbal cues (demo/gestures), 1 person + 1 person to manage equipment Balance Static Sitting Balance Static Sitting-Level of Assistance: Contact guard Dynamic Sitting Balance Level of Assistance: Minimum assistance Static Standing Balance Static Standing-Level of Assistance: Minimum assistance Dynamic Standing Balance Dynamic Standing Level of Assistance: Minimum assistance Therapeutic Activity (16 minutes) See above interventions: bed mobility and transfers performed for task specific training . Pt requires cueing for safety/sequencing during transfers. Increased time required upon coming to sit at EOB, to acclimate to upright. Upon coming to sit at EOB, MAP decreased to 49. With BLE movement and increased time in upright, MAP recovered to 59-60. Pt endorsing mild dizziness upon coming to sit at EOB-resolved with increased time. After bed>chair transfer, MAP decreased to 38-pt became visibly pale and had difficulty maintaining eye opening. Pt swiftly reclined in chair, BLE elevated above thelevel of the heart. MAP recovered to 60-65 with pt becoming more alert with improved color in her face. RN notified and arrived to assess pt. Upon PT exit with pt seated comfortably in chair-MAP 65. Further mobility deferred 2/2 profound hypotension. Standardized Assessments Standardized Assessments Standardized Assessments: [facility] 6-Clicks Mobility Assessment [facility] 6-Clicks Mobility Assessment Difficulty patient has turning over in bed (including adjusting bedclothes, sheets, and blankets)?:A lot Difficulty patient has sitting down on and standing up from a chair with arms (wheelchair, bedside commode, etc.)?: A little Difficulty patient has moving from lying on back to sitting on the side of the bed?: A lot How much help does the patient need moving to and from a bed to a chair (including a wheelchair)?: A little How much help does the patient need to walk in hospital room?: A little How much help does the patient need climbing 3-5 steps with a railing?: A lot [facility] 6-Clicks Mobility Assessment Total : 15 Assessment Demo's good strength and balance, does not require physical assist with transfers/ambulation. Most limited by pain, hypotension, and decreased activity tolerance. Anticipate pt to progress well pending medical optimization. Pt is a fall risk. Will progress mobility as appropriate. Pt would continueto benefit from skilled PT services to decrease fall risk and promote independence with functional mobility, in order to maximize potential level of function. Impairments: Decreased endurance, ventilation, and/or gas exchange, Impaired cognition/safety awareness, Impaired executive functioning, Impaired gait dynamics/performance, Impaired functional mobility/transfers, Impaired balance, Pain, Impaired postural/trunk control, Impaired motor cordination/control, Impaired locomotion, Impaired attention/alertness Activity Limitations: Inability to sit independently, Inability to ambulate household distances, Inability to transfer independently, Impaired attention/alertness, Inability to ambulate independently, Inability to complete ADLs independently, Inability to ambulate community distances Participation Restrictions: Self-care, Home management, Community leisure Activity Tolerance: Tolerates 10 - 20 min activity with multiple rests Evaluation/Treatment Tolerance: Patient limited by fatigue (limited by hypotension) Diagnosis: impaired functional mobility Rehab Potential: Good, to achieve stated therapy goals Eval Complexity History Profile: 3 or more personal factors and/or comorbidities Clinical Presentation: Unstable and unpredictable characteristics Clinical Decision Making: High complexity PT Recommendations Discharge Destination: Acute rehab Discharge Equipment: Defer to facility Plan Planned PT Interventions Balance training, Bed mobility training, Gait training, Transfer training, Functional Mobility PT Frequency 2 - 5 times per week PT Duration 2 weeks Goals PT GOAL DETAILS Time Frame PT Goal 1: Pt will perform supine<>sit transfers with CGA and HOB flat, no use of bed rails. 2 weeks PT Goal 2: Pt will perform sit to stand and bed to chair transfers with Stefan and LRD. 2 weeks PT Goal 3: Pt will ambulate >600ft with Stefan and LRD. 2 weeks PT Goal 4: Pt will safely ascend/descend 3 steps with SBA, one handrail. 2 weeks Written by Divina Yousif on 05/07/24 at 2:28 PM. * Progress Notes - Annika Shi E - 05/07/2024 1:43 PM EDT Occupational Therapy Evaluation Patient Name: Rere Hunter Today's Date: 05/07/2024 OT Discharge Recommendations: Acute rehab Equipment Recommended: Defer to facility History Rere Hunter is 53 y.o. female admitted 05/01/2024 for work-up of CAD, multiple vessel. Problem List Active Hospital Problems Diagnosis Date Noted S/P CABG x 4 05/06/2024 On mechanically assisted ventilation ([facility]) 05/06/2024 Low cardiac output syndrome ([facility]) 05/06/2024 Hypertension 05/06/2024 Hyperkalemia 05/06/2024 Cardiac volume overload 05/06/2024 Prolonged Q-T interval on ECG 05/04/2024 Hypercholesteremia 05/04/2024 Hypoalphalipoproteinemia 05/04/2024 Overweight 05/04/2024 THOM (obstructive sleep apnea) 05/04/2024 Anxiety and depression 05/01/2024 COPD (chronic obstructive pulmonary disease) ([facility]) 05/01/2024 CAD, multiple vessel 05/01/2024 NSTEMI (non-ST elevated myocardial infarction) ([facility]) 05/01/2024 GERD (gastroesophageal reflux disease) 05/01/2024 Procedures 05/06/2024 Procedure(s): CABG, 2 OR MORE VESSELS Past Medical History Patient has a past medical history of Anxiety, COPD (chronic obstructive pulmonary disease) ([facility]) (05/01/2024), Depression, GERD (gastroesophageal reflux disease) (05/01/2024), Tobacco use (05/01/2024), and Tremor (05/01/2024). Past Surgical History Patient has a past surgical history that includes section, classic; Cholecystectomy; Shoulder surgery; Abdominal adhesion surgery; and Hand surgery (Right). Precautions Medical Precautions: Fall precautions, Sternal Subjective I feel dizzy. Participants in Care Family/Caregiver Present: No Tester Equipment: Not Applicable Presentation Oxygen Therapy: Supplemental oxygen O2 Delivery Method: Nasal cannula O2 Flow Rate (L/min): 2 L/min Lines and Tubes: Arterial Line 05/06/24 Left Radial (Active) Pacer Wires (Active) CVC Single Lumen 05/06/24 Right Internal jugular (Active) Urethral Catheter Non-latex;Temperature probe 16 Fr. (Active) Y Chest Tube 1 and 2 Right Mediastinal 32 Fr. Left Mediastinal 32 Fr. (Active) Y Chest Tube 3 and 4 Pleural 32 Fr. Pleural 32 Fr. (Active) Negative Pressure Wound Therapy Sternum (Active) Peripheral IV 05/02/24 Anterior;Left;Proximal Forearm (Active) Peripheral IV 05/02/24 Anterior;Right Forearm (Active) Telemetry Pre-Session: Supine, Head of bed elevated, Lines intact Pre-Session Comments: RN gave therapist permission to see pt for therapy Post-Session: Sitting in chair, Lines intact, RN notified, Call light in reach Post-Session Comments: All needs met, nurse okay with chair alarm not on pt Home Living/Set-up Lives With: Family (Aunt) Home Type: Mobile home Home Layout: Stairs to enter with rails, One level Number of Stairs: 3 Home Living Comments: unable to answer additional home set-up/PLOF questions 2/2 cognitive status Prior Level of Function Unknown Patient/Family Goals Statement less pain Objective Pain Pt unable to indicate whether or not she was having pain due to decreased cognitive status. Nurse did report recently giving her pain meds. Positioned pt for comfort in chair. Delirium Screening Urban Agitation Sedation Scale (RASS): Drowsy Confusion Assessment Method-ICU (CAM-ICU/PCAM-ICU) Feature 3: Altered Level of Consciousness: Positive Cognition Overall Cognitive Status: Impaired Arousal/Alertness: Delayed responses to stimuli Mood/Behavior: Lethargic, Flat affect Orientation Level: Oriented to place, Oriented to situation, Oriented to person Orientation Level Comments: Poor historian this date / pain meds Single Step Commands: With increased time, With repetition Multi-Step Commands: With increased time, With repetition Method of Communication: Verbal Vision - Basic Assessment Current Vision: Intact Right Upper Extremity Examination RUE ROM Assessment RUE Assessment: Within Functional Limits Manual Muscle Testing - RUE: (NT 2/2 sternal precautions) Sensation Light Touch: Right Upper Extremity: (NT secondary to cognitive status) Left Upper Extremity Examination LUE ROM Assessment LUE Assessment: Within Functional Limits Manual Muscle Testing - LUE: (NT 2/2 sternal precautions) Sensation Light Touch: Left Upper Extremity: (NT secondary to cognitive status) Right Lower Extremity Examination RLE ROM Assessment RLE Assessment: Within Functional Limits Manual Muscle Testing - RLE: Within functional limits Sensation Light Touch: Right Lower Extremity: (NT secondary to cognitive status) Left Lower Extremity Examination LLE ROM Assessment LLE Assessment: Within Functional Limits Manual Muscle Testing: Within functional limits Sensation Light Touch: Left Lower Extremity: (NT secondary to cognitive status) Bed Mobility Bed Mobility Exam: Scooting/Bridging Level of Harmon: Maximum assist (25% patient's effort) (to scoot to EOB while seated) Physical/Nonphysical Assist: Nonverbal cues (demo/gestures), Verbal Cues Bed Mobility Exam: Supine to Sit Level of Harmon: Maximum assist (25% patient's effort) Physical/Nonphysical Assist: Additional assist utilized for safety, Nonverbal cues (demo/gestures),Verbal Cues, HOB elevated Transfers Transfer Exam: Sit to stand Level of Harmon: Minimum assist (75% patient's effort) Physical/Nonphysical Assist: Verbal Cues, Nonverbal cues (demo/gestures), 1 person + 1 person to manage equipment Transfer Exam: Stand to Sit Level of Harmon: Minimum assist (75% patient's effort) Physical/Nonphysical Assist: Verbal Cues, Nonverbal cues (demo/gestures), 1 person + 1 person to manage equipment Transfer Exam: Bed to Chair/Chair to Bed Level of Harmon: Minimum assist (75% patient's effort) Physical/Nonphysical Assist: Verbal Cues, Nonverbal cues (demo/gestures), 1 person + 1 person to manage equipment Balance Static Sitting Balance Static Sitting-Level of Assistance: Contact guard Dynamic Sitting Balance Level of Assistance: Minimum assistance Static Standing Balance Static Standing-Level of Assistance: Minimum assistance Dynamic Standing Balance Dynamic Standing Level of Assistance: Minimum assistance Self-Care Interventions Self Care/Home Management (ADLs) Time Entry: 8 Pt benefited from skilled occupational therapy interventions including: Monitoring of vitals to ensure activity tolerance (closely monitored vitals throughout, pt's MAP dropped to 49 when sitting EOB, with increased time at EOB pt's MAP recovered to 59-60, however after functional stand and stepping to chair pt's MAP dropped to 38 and pt became visibly pale + difficulty holding eyes open, notified nurse immediately, nurse present to assist as needed, pumped pt's feetand reclined pt in chair, MAP recovered to 60-65 and pt became more alert with good coloring; HR and SPO2 stable; deferred walking due to drop in BP and pt's decreased alertness/cognitive status) MOD-MAX verbal, visual, and tactile cues to facilitate improved body mechanics and safety during functional tasks Provision of increased time frames to support optimal level of pt participation Task/activity modification with grading as needed to achieve safety while also providing appropriate functional challenge Skilled organization and management of medical lines/tubes to reduce fall risk with mobility aspects of ADLs Environmental set-up to ensure safety and accessibility to all needed areas of treatment space Educated pt on sternal precautions, pt having difficulty understanding and carrying over information functionally due to decreased cognition and alertness Grooming Grooming Level of Assistance: Minimum assistance, Minimal verbal cues Grooming Where Assessed: Chair level Grooming Interventions: While sitting in the chair, pt applied wash cloth to face with min-mod assist. Pt initially required mod assist due to decreased alertness and drop in BP. See more information above. Lower Extremity Dressing Sock Level of Assistance: Dependent LE Dressing Where Assessed: Bed level LE Dressing Interventions: Pt unable to safely/effectively participate in figure four dressing to don socks due to decreased cognitive status therefore provided total assist to don bilateral socks at bed level. Toileting Toileting Level of Assistance: Minimum assistance, Moderate assistance, Moderate verbal cues Where Assessed: Other (Comment) (simulated during sit>stand and side steps to chair) Toileting Interventions: In prep for toileting transfers, pt practiced transitioning to EOB with max assist x2 + max cues for adhering to sternal precautions. Pt stood from EOB with min assist x2 using [employer] bilaterally and mod cues. Pt side stepped to the chair with min assist x2 using [employer] bilaterally and mod cues for safety/balance. See vitals section above for explanation as to why we deferred further functional mobility. Standardized Assessments [facility] 6-Click Daily Activities Help from Other: Don/Doff Regular Lower Body Clothings: A lot Help From Other: Bathing: A lot Help From Other: Toileting: A lot Help From Other: Don/Doff Upper Body Clothings: Little Help From Other: Grooming: Little Help From Other: Eating Meals: Little [facility] 6 Click - Daily Activities Score: 15 Assessment On this date, OT eval performed but limited due to pt's lethargy, decreased alertness, decreased cognition, and drop in MAP during position changes- see vitals section above, nurse and MD aware. Pt engaged in ADL preparatory routines (functional bed mobility, functional transfers, functional side stepping, toileting prep, grooming, dressing) with min-max assist x2, increased time, mod- max cues, and rest breaks. Pt remains limited by symptoms consistent with decreased cognition, decreased activity tolerance (see vitals above), decreased activity endurance, fatigue, decreased command following,decreased command following, deconditioning. This negatively impacts safety and independence with self-care execution. With this in mind, OT will continue to follow while hospitalized but pt is currently most appropriate for Acute Rehab upon discharge. While pt remains hospitalized, OT will provideskilled therapy services for the purpose of improving functional status, decreasing caregiver levelof burden, and increasing quality of life. OT Findings: Impaired ADL performance, Impaired IADL performance, Impaired judgment during ADL, Impaired cognition, Impaired attention, Decreased endurance/ventilation/gas exchange, Impaired executive function, Impaired functional mobility, Impaired postural/trunk control, Impaired balance Evaluation/Treatment Tolerance: Patient limited by fatigue, Other (Comment) (decreased cognition and drowsiness) Rehab Potential: Good, to achieve stated therapy goals Demonstrates Need for Referral to Another Service: Social work Eval Complexity Occupational Profile: Expanded review of medical/therapy records and additional review of physical,cognitive, or psychosocial history Performance Deficits: Activities of daily living (ADLs), Instrumental activities of daily living (IADLs), Leisure, Social participation, Body functions, Body structures, Motor skills, Process skills,Habits, Routines, Roles Clinical Decision Making: Moderate Overall Eval complexity: Moderate OT Recommendations Discharge Destination: Acute rehab Discharge Equipment: Defer to facility Demonstrates Need for Referral to Another Service: Social work Plan Planned OT Interventions ADL retraining, IADL retraining, Balance training, Bed mobility Training, Joint mobilization, ROM, Strengthening, Stretching, Transfer training, Functional mobility, Cognitive retraining, Caregiver education OT Frequency 2 - 5 times per week OT Duration 2 weeks Goals OT GOAL DETAILS Time Frame OT Goal 1: Pt will perform functional toilet transfer including entering/exiting bathroom with mod I using DME as needed. 2 weeks OT Goal 2: Pt will perform three consecutive grooming activities standing at the sink with mod I using DME as needed. 2 weeks OT Goal 3: Pt will perform three consecutive LB dressing activities in sitting/standing with mod I using DME/AE as needed. 2 weeks OT Goal 4: Pt will verbalize/demonstrate sternal precautions with 100% accuracy in order to safely participate in her ADL routine. 2 weeks Written by Annika Shi on 05/07/24 at 3:28 PM. * Consults - Maite Mueller RD - 05/07/2024 10:27 AM EDTAssociated Order(s): IP CONSULT TO NUTRITION SERVICES Adult Nutrition Evaluation Note Rere Hunter 53 y.o. female CSN: [id number] Room/Bed 217/217A Nutrition evaluation type: assessment Reason for evaluation: provider consult Hospital course: 53 y.o. female presents for CABG evaluation. OR on 05/06. Past medical/ surgical history: Medical History[1] Surgical History[2] Social history: Additional comments: Minimal PO intake recently, diet advancing per protocol. Vitals and Basic Assessment: BP: (!) 152/76 Temp: 38 ??C (100.4 ??F) Invasive Ventilator Initiated (ETT/Trach Only): Yes Oxygen Therapy: Supplemental oxygen O2 Delivery Method: Nasal cannula Jaida Coma Scale Score: 11 Shaan Scale Score: 20 Joshua/Cesilia Pressure Risk Score: 26 Most Recent BM Date: 05/05/24 (per patient this AM) GI Symptoms: None Edema: Generalized Allergies: NKFA Medications: aspirin, 81 mg, Oral, Daily atorvastatin, 80 mg, Oral, Nightly buPROPion XL, 300 mg, Oral, Daily ceFAZolin, 2 g, Intravenous, q8h citalopram, 40 mg, Oral, Daily docusate sodium, 50 mg, Oral, BID [Held by provider] enoxaparin, 30 mg, Subcutaneous, Daily furosemide, 20 mg, Intravenous, Once insulin regular, 0-5 Units, Subcutaneous, q6h LINDA ipratropium-albuterol, 3 mL, Nebulization, q6h RT melatonin, 6 mg, Oral, Nightly mupirocin, 1 Application, Each Nostril, BID polyethylene glycol, 17 g, Oral, Daily primidone, 50 mg, Oral, BID senna, 17.2 mg, Oral, Nightly Meds were reviewed: Yes Labs: Lab Results Component Value Date GLUCOSE 139 (H) 05/07/2024 CALCIUM 8.1 (L) 05/07/2024 NA 149 (H) 05/07/2024 K 5.0 (H) 05/07/2024 CO2 20 (L) 05/07/2024 CL 117 (H) 05/07/2024 BUN 16 05/07/2024 CREATININE 1.48 (H) 05/07/2024 PHOS 2.6 05/06/2024 MG 4.5 (H) 05/06/2024 HGBA1C 5.3 05/01/2024 Anthropometrics: Height: 154.9 cm (5' 1 ) Weight: 61.1 kg (134 lb 11.2 oz) BMI (Calculated): 25.46 Weight Evaluation: Overweight (BMI 25-29.9) [place] Body Weight (kg): 47.7 Percent [place] Body Weight: 128 Adjusted Body Weight (kg): 51 Estimated Needs: Metabolic Cart Study Results: Current Nutrition Intake: Diet Order: Adult Diet Diet Texture: Clear liquid Adult Carbohydrate Restriction: Consistent CHO 2 (2049-2908 Channing, 80 g/meal) Fat Restriction: Cardiac Diet Experience and Nutrition History: Diet Education Provided: Will monitor Pertinent home medications: reviewed Gnosticist needs: Nutrition Focused Physical Exam: Physical exam performed on (date): Assessment of Malnutrition: Nutrition Problem: Increased nutrient needs protein, calories related to s/p CABG as evidenced by increased metabolic demands of surgical wound healing. Status of Nutrition Diagnosis: New Nutrition Interventions and Recommendations: - Advance diet as medically appropriate -CC2 -Cardiac - Add Impact AR BID when diet advances - Recommend obtaining weight weekly - Please document meal intake in flowsheet Nutrition Monitoring and Goals: - Will monitor PO intake/EN infusion, weight, skin, labs, nutrition status - Pt will consume >75% of meal intake - Pt will maintain body weight throughout hospital admission Acuity Level: [address] [1] Past Medical History: Diagnosis Date Anxiety COPD (chronic obstructive pulmonary disease) ([facility] [place]) 05/01/2024 Continue Duo nebs q6 SPO2 goal >88% Depression GERD (gastroesophageal reflux disease) 05/01/2024 Continue Protonix 40 mg daily Tobacco use 05/01/2024 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 Complicates all aspects of care and recovery Tremor 05/01/2024 Continue home primidone 50 mg BID [2] Past Surgical History: Procedure Laterality Date ABDOMINAL ADHESION SURGERY SECTION, CLASSIC CHOLECYSTECTOMY HAND SURGERY Right Tendon repair SHOULDER SURGERY * Progress Notes - Amaury Byrd MD - 05/07/2024 10:11 AM EDTAssociated Order(s): Critical Care Post-Procedure Diagnose(s): Cardiac volume overload Critical Care Performed by: Amaury Byrd MD Authorized by: Amaury Byrd MD Critical care provider statement: Critical care time (minutes): 38 Critical care time was exclusive of: Separately billable procedures and treating other patients andteaching time Critical care was time spent personally by me on the following activities: Development of treatmentplan with patient or surrogate, ordering and performing treatments and interventions, discussions with consultants, ordering and review of laboratory studies, discussions with primary provider, ordering and review of radiographic studies, evaluation of patient's response to treatment and examination of patient I assumed subsequent critical care for this patient from a provider in my division, on the same day: yes Critical care statement: I saw and evaluated the patient with the resident/ fellow. I discussed thecase with the resident/ fellow and agree with the findings and plan as documented. 05/07/24 Rere Hunter HPI Rere Hunter is a 53 y.o. female POD 1 4V CABG Past 24 hours: PM: Arrived intubated and sedated. Reversed. Nitroglycerin gtt off. Albumin 250x2, 250 NS x3, CaCl for low MAPs.Tmax 38.2 AM: POD 1 A&Ox4 GCS 15, NSR VVI 6/10, epi .03 weaning, extubated to 4LNC, CXR reviewed, duonebsq6, CLD bowel reg, de [place] sant[place] in place +540, WBC 20 trending likely reactive, H/H stable, per CT surg hold enox pm diuresis, Fem a line/ PAC dc'd Edited by: Miguel Downey MD at 05/07/2024 1011 Lines/Drains/Tubes: Patient Lines/Drains/Airways Status Active Active LDAs Name Placement date Placement time Site Days CVC Single Lumen 05/06/24 Right Internal jugular 05/06/24 1051 Internal jugular less than 1 Peripheral IV 05/02/24 Anterior;Left;Proximal Forearm 05/02/24 0002 Forearm 5 Peripheral IV 05/02/24 Anterior;Right Forearm 05/02/24 0000 Forearm 5 Urethral Catheter Non-latex;Temperature probe 16 Fr. 05/06/24 0938 -- 1 Y Chest Tube 1 and 2 Right Mediastinal 32 Fr. Left Mediastinal 32 Fr. 05/06/24 1921 -- less than 1 Y Chest Tube 3 and 4 Pleural 32 Fr. Pleural 32 Fr. 05/06/24 2131 -- less than 1 Arterial Line 05/06/24 Left Radial 05/06/24 1050 Radial less than 1 Negative Pressure Wound Therapy Sternum 05/06/24 1940 Sternum less than 1 ROS: GCS: Jaida Coma Scale Score: 11 Review of Systems 14 point ROS reviewed and otherwise negative or unobtainable except as noted above or in HPI. Vital signs: Visit Vitals BP (!) 152/76 Pulse 104 Temp 38 ??C (100.4 ??F) (Bladder) Resp 26 Ht 1.549 m (5' 1 ) Wt 61.1 kg (134 lb 11.2 oz) SpO2 96% BMI 25.45 kg/m?? Smoking Status Every Day BSA 1.62 m?? Intake/Output Summary (Last 24 hours) at 05/07/2024 1017 Last data filed at 05/07/2024 0909 Gross per 24 hour Intake 6655.69 ml Output 5605 ml Net 1050.69 ml Physical Exam Physical Exam Vitals reviewed. Constitutional: Alert oriented GCS 15 HENT: Nose: No congestion or rhinorrhea. Mouth/Throat: Mouth: Mucous membranes are moist. Eyes: General: No scleral icterus. Pupils: Pupils are equal, round, and reactive to light. Cardiovascular: Rate and Rhythm: Normal rate and regular rhythm. Pulmonary: Effort: Pulmonary effort is normal. On 4LNC Comments: breath sounds bilaterally Chest: Comments: Chest tubes (2 mediastinal, left pleural, right pleural) A&V pacing wires Sternotomy incision covered with wound vac Abdominal: General: There is no distension. Palpations: Abdomen is soft. Musculoskeletal: Right lower leg: Edema present. Left lower leg: Edema present. Skin: General: Skin is warm and dry. Capillary Refill: Capillary refill takes less than 2 seconds. Neurological: General: No focal deficit present. Mental Status: A&Ox4 GCS 15 Comments: Following commands Labs in last 18 hours: CBC WBC 20.23 (H) Hb 9.9 (L) Plt 249 Hct 29.0 (L) ANC ?? INR 1.5 (H), PTT 54 (H), Anti-Xa ?? BMP Na 149 (H) Cl 117 (H) BUN 16 Glu 139 (H) K 5.0 (H) Co2 20 (L) Cr 1.48 (H) Ca 8.1 (L) iCa 5.0; 4.9 Mg 4.5 (H), Phos 2.6 Lactate 3.5 (H) LFT AST ?? AlkPhos ?? T Prot ?? ALK ?? Bili ?? Alb ?? D.Bili ?? Imaging as available: No results found for this or any previous visit. === 05/01/24 === CT CHEST WO IV CONTRAST - Narrative - CLINICAL INDICATION: CABG work up TECHNIQUE: Multiple CT helical images were obtained from thoracic inlet through upper abdomen without administration of IV contrast. Total DLP (Dose-Length Product): 125.46 mGy.cm. Please note: The reported value represents the total of one or more individual components during the CT acquisition on this date and at this time, and as such, the same value may appear in more than one CT report depending on the interpreting/reporting physicians. COMPARISON: None. FINDINGS: Mediastinum and Pleura: No mediastinal adenopathy. Severe coronary artery calcifications. No pleural or pericardial effusion. 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 Lungs: A 1.5 cm left upper lobe groundglass nodule (series 2 image 37). No focal consolidation. Upper Abdomen: Diffuse hepatic steatosis. Post cholecystectomy. Musculoskeletal: No suspicious lytic or sclerotic lesion. - Impression - Left upper lobe groundglass nodule. Recommend follow-up in 6 months. Severe atherosclerosis of the coronary arteries. CRITICAL RESULT: No. COMMUNICATION: Per this written report. By electronically signing this report, I, the attending physician, attest that I have personally reviewed the images/data for the above examination(s) and agree with the final edited report. Drafted by GER Mckee on 05/02/2024 8:02 AM Final report signed by Camila Barth MD on 05/02/2024 8:22 AM === 05/01/24 === XR CHEST 1 VIEW - Narrative - CLINICAL INDICATION: Post-Op Cardiac Surgery TECHNIQUE: XR CHEST 1 VIEW COMPARISON: May 06, 2024 . FINDINGS: Stable support hardware. Cardiac silhouette and mediastinal contours are stable. Trace of interstitial edema. No pneumothorax. - Impression - Trace of interstitial edema CRITICAL RESULT: No. COMMUNICATION: Per this written report. By electronically signing this report, I, the attending physician, attest that I have personally reviewed the images/data for the above examination(s) and agree with the final edited report. Drafted by GER Mckee on 05/07/2024 9:34 AM Final report signed by Mary Phelps MD on 05/07/2024 9:59 AM Reviewed and agree with above. Assessment and Plan: This patient is critically ill. 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 Surgery consulted CABG work-up pending 05/07 POD 1 4vCABG Anxiety and depression Yes Overview Addendum 05/07/2024 10:05 AM by Miguel Downey MD 05/07 Continue home bupropion XL 300 mg daily Continue home citalopram 40 mg daily Continue PRN hydroxyzine 25 mg q6 COPD (chronic obstructive pulmonary disease) ([facility] [place]) Yes Overview Addendum 05/07/2024 10:06 AM by Miguel Downey MD 05/07 Duo nebs q6 SPO2 goal >88% On 4LNC NSTEMI (non-ST elevated myocardial infarction) ([facility] [place]) Yes Overview Addendum 05/07/2024 10:06 AM by Miguel Downey MD Diagnosed at OSH with elevated troponins of 0.05 to 0.23 to 0.16 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, 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 Repeat troponins pending 05/07 POD 1 4V CABG GERD (gastroesophageal reflux disease) Yes Overview Addendum 05/07/2024 10:07 AM by Miguel Downey MD Continue Protonix 40 mg daily 05/07 extubated, no on home PPI dc'd Prolonged Q-T interval on ECG Yes Overview Signed 05/07/2024 10:07 AM by Miguel Downey MD 05/07 EKG reviewed Hypercholesteremia Yes Overview Signed 05/07/2024 10:08 AM by Miguel Downey MD 05/07 + statin Hypoalphalipoproteinemia Yes Overweight Yes THOM (obstructive sleep apnea) Yes Overview Signed 05/07/2024 10:08 AM by Miguel Downey MD 05/07 pt declines home CPAP use S/P CABG x 4 Not Applicable Overview Addendum 05/07/2024 10:14 AM by Miguel Downey MD 05/06 w/Reda 4 chest tubes (mediastinal x2, left pleural, right pleural) A&V wires SBP <140 Aspirin, statin, beta stacey as clinically appropriate 05/07 epi .03 weaning, holding beta block (epi .03) On mechanically assisted ventilation ([facility] [place]) Not Applicable Overview Addendum 05/07/2024 10:09 AM by Miguel Downey MD Arrived to ICU intubated 05/07 extubated to [facility] Low cardiac output syndrome (CMS/HCC) Unknown Overview Addendum 05/07/2024 10:16 AM by Miguel Downey MD LVEF 45% Requiring epi 05/07 epi wean currently .03 Hypertension Unknown Overview Addendum 05/07/2024 10:17 AM by Miguel Downey MD Requiring nitroglycerin gtt upon arrival to ICU 05/07 off gtts, SBP within goal Hyperkalemia Unknown Overview Addendum 05/07/2024 10:17 AM by Miguel Downey MD Intro op max 7.3 Received dextrose, insulin, calcium, lasix intra-op Treat K>5.2 05/07 K 5.0 Cardiac volume overload Unknown Overview Addendum 05/07/2024 10:12 AM by Miguel Downey MD Diuresis as clinically indicated 05/[address] surg Miguel Downey MD * Progress Notes - Sundeep Newsome MD - 05/07/2024 9:14 AM EDT Images from the original note were not included. CARDIOTHORACIC SURGERY PROGRESS NOTE SUBJECTIVE Acute Events/Last 24 Hrs: Extubated this AM. On epinephrine 0.04. AUOP. CT - 510. CXR with good lung volumes. OBJECTIVE All laboratory data, images, tracings, and vital sign data for past 24 hours are personally reviewed unless otherwise noted. Physical Exam VITALS (last 24h) 05/07/2024 4:17 AM 05/07/2024 5:00 AM 05/07/2024 6:00 AM 05/07/2024 6:55 AM 05/07/2024 7:00 AM 05/07/2024 8:00 AM 05/07/2024 9:00 AM Vitals Heart Rate 80 80 80 81 91 88 103 Temp 38.1 C 37.9 C 37.9 C 38.1 C 38.1 C 38.0 C 38.0 C Resp 20 23 35 17 19 27 29 PAP: (21-37)/(13-20) / CO: [2.6 L/min] 2.6 L/min CI: [1.6 L/min/m2-1.8 L/min/m2] 1.8 L/min/m2 Invasive Ventilator Initiated (ETT/Trach Only): Yes O2 Delivery Method: Nasal cannula Vent Mode: PS Invasive Vent Status (ETT, Trach Only): In use Pressure Control Above PEEP (cmH2O): 9 S VT: 400 mL Insp Time (sec): 1 sec Vent Mode: PS FiO2 (%): 40 % S RR: 20 S VT: 400 mL MAP (cm H2O): 9 General: alert and oriented, appropriate HEENT: normocephalic, atraumatic, normal external ears and nose Eyes: no scleral icterus, normal conjunctiva Neck: supple, no trachea deviation Lungs: symmetric chest rise, mildly-labored breathing on supplemental oxygen Heart: Regular rate, well perfused Abdomen: soft NT/ND, Extremities: no peripheral edema Skin: no rash, no cyanosis and warm to touch Psychiatric: oriented to person/place/time and normal mood/affect INCISIONS: Sternum - wound vac Leg - ryanne bandages c/d/i Intake/Output Intake/Output Summary (Last 24 hours) at 05/07/2024 0916 Last data filed at 05/07/2024 0909 Gross per 24 hour Intake 6755.69 ml Output 5605 ml Net 1150.69 ml Results Labs in last 18 hours CBC WBC 20.23 (H) Hb 9.9 (L) Plt 249 Hct 29.0 (L) ANC ?? INR 1.5 (H), PTT 54 (H), Anti-Xa ?? BMP Na 149 (H) Cl 117 (H) BUN 16 Glu 139 (H) K 5.0 (H) Co2 20 (L) Cr 1.48 (H) Ca 8.1 (L) iCa 5.0; 4.9 Mg 4.5 (H), Phos 2.6 Lactate 3.5 (H) LFT AST ?? AlkPhos ?? T Prot ?? ALK ?? Bili ?? Alb ?? D.Bili ?? Results from last 7 days Lab Units 05/01/24 2358 HEMOGLOBIN A1C % 5.3 Imaging No echocardiogram results found for the past 14 days No valid procedures specified. ASSESSMENT & PLAN Principal Problem: CAD, multiple vessel Active Problems: Anxiety and depression COPD (chronic obstructive pulmonary disease) ([facility] [place]) Tobacco use NSTEMI (non-ST elevated myocardial infarction) ([facility] [place]) GERD (gastroesophageal reflux disease) Leukocytosis Essential tremor Thrombocytosis Hypocalcemia Prolonged Q-T interval on ECG Hyperlipidemia Hypercholesteremia Hypertriglyceridemia Hypoalphalipoproteinemia Overweight THOM (obstructive sleep apnea) S/P CABG x 4 On mechanically assisted ventilation ([facility] [place] Low cardiac output syndrome ([facility] [place]) Hypertension Hyperkalemia Cardiac volume overload 53 yrs female who underwent 4v CABG on 05/06/[address] Austin. -ASA, statin, beta stacey -hold DVT ppx -wean supplemental oxygen -diuresis in PM -Keep tubes and wires -Continue wound vac -Slow epinephrine wean (work towards being off this evening) -Stay ICU Cardiothoracic Surgery 05/07/24 9:16 AM Cosigned by Maite Austin MD at 05/08/2024 4:19 PM EDT Associated attestation - Maite Austin MD - 05/08/2024 4:19 PM EDT I saw and evaluated the patient with the resident/fellow. I discussed the case with the resident/fellow and agree with the findings and plan as documented. * Progress Notes - Heather Ram - 05/07/2024 8:58 AM EDT Case Management Adult Progress Note Rere Hunter 53 y.o. female CSN: [id number] Admission: 05/01/2024 11:01 PM Primary Problem: CAD, multiple vessel Anticipated Discharge Date: TBD Has Discharge Plans Changed? No Housing Circumstances: Not Applicable Housing Circumstances Action Taken: Other N/A Additional Comments SW reviewed chart for case updates. Pt is s/p CABG on 05/06/24 and remains in ICU-level of care. Pt weaned from MV to NC this AM. Per MD, pt is not medically ready for DC this date. See medical notes for more detail. No further SW concerns identified at this time. SW will monitor pt's progress and will follow up with DC planning and needs as appropriate. NAYA Albarran * H&P - Edson Lewis MD - 05/06/2024 10:03 PM EDTAssociated Order(s): Critical Care Post-Procedure Diagnose(s): S/P CABG x 4 Critical Care Performed by: Edson Lewis MD Authorized by: Edson Lewis MD Critical care provider statement: Critical care time (minutes): 39 Critical care time was exclusive of: Separately billable procedures and treating other patients andteaching time Critical care was time spent personally by me on the following activities: Development of treatmentplan with patient or surrogate, ordering and performing treatments and interventions, discussions with consultants, ordering and review of laboratory studies, discussions with primary provider, ordering and review of radiographic studies, evaluation of patient's response to treatment, examination of patient and ventilator management Critical care statement: I saw and evaluated the patient with the resident/ fellow. I discussed thecase with the resident/ fellow and agree with the findings and plan as documented. 05/06/24 Rere Hunter Consulted for critical care management by Cardiothoracic Surgery. HPI Rere Hunter is a 53 y.o. female who presents with CAD, multiple vessel s/p Procedure(s) and Anesthesia Type: * CABG, 2 OR MORE VESSELS - General. Patient is * Day of Surgery *. Intraoperative course was notable for having to go back on bypass. The pt received 1250 mcg Fentanyl and 2 mg Versed. Intraoperatively, they received 1500 mL of crystalloid, 0 mL of albumin, 602 mL of cell saver and the following blood products: 2 units platelets, 4u pRBCs. Patient required epinephrine in the OR. Significant intra-op included: going back on bypass thought to be secondary to hyperkalemia. Total time on pump was 300 minutes. They have A and V wires and currently have the pacer set to a backup rhythm of VVI 60. Postoperative FLOYD showed EF 45% with hypokinetic inferiobasal region. Upon arrival, the patient was on epinephrine, dexmedetomidine, and nitroglycerin. Last dose of paralytic was given at 1515. Airway view (if available) was: grade IIa - partial view of glottis Lines/Drains/Tubes: . Active . Name Placement date Placement time Site Days CVC Single Lumen 05/06/24 Right Internal jugular 05/06/24 1051 Internal jugular less than 1 Peripheral IV 05/02/24 Anterior;Left;Proximal Forearm 05/02/24 0002 Forearm 4 Peripheral IV 05/02/24 Anterior;Right Forearm 05/02/24 0000 Forearm 4 Urethral Catheter Non-latex;Temperature probe 16 Fr. 05/06/24 0938 -- less than 1 Y Chest Tube 1 and 2 Right Mediastinal 32 Fr. Left Mediastinal 32 Fr. 05/06/24 1921 -- less than 1 Y Chest Tube 3 and 4 Pleural 32 Fr. Pleural 32 Fr. 05/06/24 2131 -- less than 1 Arterial Line 05/06/24 Left Radial 05/06/24 1050 Radial less than 1 Arterial Line 05/06/24 Right Femoral 05/06/24 2137 Femoral less than 1 Pulmonary Artery Catheter 05/06/24 Internal jugular Right 05/06/24 1051 Internal jugular less than 1 Last antibiotic: Patient recently received an antibiotic (last 12 hours) Showing orders from other encounters Date/Time Action Medication Dose 05/06/24 1816 Given ceFAZolin (Ancef) injection 2 g 05/06/24 1416 Given ceFAZolin (Ancef) injection 2 g 05/06/24 1104 Given vancomycin (Vancocin) vial for injection 1 g 05/06/24 1016 Given ceFAZolin (Ancef) injection 2 g Per the patient questionnaire: Patient answers are not available for this visit. Past Medical History: Active Ambulatory Problems Diagnosis Date Noted No Active Ambulatory Problems Resolved Ambulatory Problems Diagnosis Date Noted No Resolved Ambulatory Problems Past Medical History: Diagnosis Date Anxiety COPD (chronic obstructive pulmonary disease) ([facility] [place]) 05/01/2024 Depression GERD (gastroesophageal reflux disease) 05/01/2024 Tobacco use 05/01/2024 Tremor 05/01/2024 Past Surgical History: Surgical History[1] Home Medications: Prior to Admission medications Medication Sig Start Date End Date Taking? Authorizing Provider buPROPion XL (Wellbutrin XL) 300 MG 24 hr tablet take 1 tablet by mouth every 24 hours 04/20/24 Yes Jaden Correa MD citalopram (CeleXA) 40 MG tablet Take 1 tablet (40 mg) by mouth. 12/30/22 Yes Jaden Correa MD Combivent Respimat 20-100 MCG/ACT inhaler 03/07/23 Yes Jaden Correa MD fluticasone (Flonase) 50 MCG/ACT nasal spray Administer 2 sprays into each nostril daily as needed.12/24/23 Yes Jaden Correa MD hydrOXYzine HCl (Atarax) 10 MG tablet Take 1 tablet (10 mg) by mouth every 8 hours as needed. Yes Jaden Correa MD loratadine (Claritin) 10 MG tablet Take 1 tablet (10 mg) by mouth daily. Yes Jaden Correa MD primidone (Mysoline) 50 MG tablet Take 1 tablet (50 mg) by mouth every 12 (twelve) hours. Yes Jaden Correa MD propranolol (Inderal) 20 MG tablet Take 1 tablet (20 mg) by mouth in the morning and 1 tablet (20 mg) before bedtime. 01/17/23 Yes Jaden Correa MD buPROPion XL (Wellbutrin XL) 150 MG 24 hr tablet TAKE 1 TABLET BY MOUTH EVERY 24 HOURS FOR 30 DAYS 05/02/24 Jaden Correa MD cephalexin (Keflex) 500 MG capsule TAKE 1 CAPSULE BY MOUTH THREE TIMES DAILY FOR 5 DAYS Patient not taking: Reported on 04/26/2023 01/17/23 05/02/24 Jaden Correa MD clonazePAM (KlonoPIN) 0.5 MG tablet TAKE 1/2 (ONE-HALF) TABLET BY MOUTH ONCE DAILY IN THE EVENING FOR 30 DAYS 07/24/22 05/02/24 Jaden Correa MD cyclobenzaprine (Flexeril) 5 MG tablet Take 1 tablet (5 mg) by mouth at night if needed. 10/28/22 05/02/24 Jaden Correa MD diclofenac (Voltaren) 75 MG EC tablet Take 1 tablet (75 mg) by mouth 2 (two) times a day. 10/28/22 05/02/24 Jaden Correa MD escitalopram (Lexapro) 20 MG tablet Take 1 tablet (20 mg) by mouth 2 (two) times a day. 05/02/24 Jaden Correa MD fluconazole (Diflucan) 100 MG tablet TAKE 1 TABLET BY MOUTH ONCE DAILY FOR 7 DAYS Patient not taking: Reported on 04/26/2023 05/10/22 05/02/24 Jaden Correa MD ibuprofen 600 MG tablet Take 1 tablet (600 mg) by mouth every 6 (six) hours if needed for mild pain. 01/24/23 05/02/24 Mark Levine MD methocarbamol (Robaxin) 500 MG tablet Take 1 tablet (500 mg) by mouth 3 (three) times a day if needed for muscle spasms. Patient not taking: Reported on 04/26/2023 10/02/22 05/02/24 Jaden Correa MD ondansetron (Zofran) 4 MG tablet Take 1 tablet (4 mg) by mouth every 8 (eight) hours if needed for nausea or vomiting. 01/26/23 05/02/24 Rodo Robles MD ondansetron ODT (Zofran-ODT) 4 MG disintegrating tablet DISSOLVE 1 TABLET IN MOUTH EVERY 6 HOURS ASNEEDED FOR 7 DAYS 12/31/22 05/02/24 Jaden Correa MD oxyCODONE-acetaminophen (Percocet) 5-325 MG tablet Take 1 tablet by mouth every 6 (six) hours if needed for severe pain. 01/24/23 05/02/24 Mark Levine MD predniSONE (Deltasone) 20 MG tablet 1 (one) time each day at the same time. Patient not taking: Reported on 04/26/2023 02/08/23 05/02/24 Jaden Correa MD Social History: Pt has reports that she has been smoking cigarettes. She has never used smokeless tobacco. She reports that she does not currently use alcohol. She reports that she does not currently use drugs. (details as available below) Social History Substance and Sexual Activity Alcohol Use Not Currently Social History Substance and Sexual Activity Drug Use Not Currently Tobacco Use History[2] Reviewed and otherwise non-contributory. Family History: Family History[3] Reviewed and otherwise non-contributory. Allergies: Allergies[4] GCS: Jaida Coma Scale Score: 6 Review of Systems Unable to perform ROS: Intubated 14 point ROS reviewed and otherwise negative or unobtainable except as noted above or in HPI. Vital signs: Vitals: 05/06/24 2200 BP: Pulse: 103 Resp: 20 Temp: SpO2: 97% Intake/Output Summary (Last 24 hours) at 05/06/20241 Last data filed at 05/06/2024 2200 Gross per 24 hour Intake 3866.9 ml Output 4240 ml Net -373.1 ml Physical Exam: Sedation was held for the purposes of examination. Physical Exam Vitals reviewed. Constitutional: Interventions: She is sedated, intubated and restrained. HENT: Nose: No congestion or rhinorrhea. Mouth/Throat: Mouth: Mucous membranes are moist. Eyes: General: No scleral icterus. Pupils: Pupils are equal, round, and reactive to light. Cardiovascular: Rate and Rhythm: Normal rate and regular rhythm. Pulmonary: Effort: Pulmonary effort is normal. She is intubated. Comments: Mechanical breath sounds bilaterally Chest: Comments: Chest tubes (2 mediastinal, left pleural, right pleural) A&V pacing wires Sternotomy incision covered with wound vac Abdominal: General: There is no distension. Palpations: Abdomen is soft. Musculoskeletal: Right lower leg: Edema present. Left lower leg: Edema present. Skin: General: Skin is warm and dry. Capillary Refill: Capillary refill takes less than 2 seconds. Neurological: General: No focal deficit present. Mental Status: She is easily aroused. Comments: Following commands Labs in last 18 hours: CBC WBC 23.57 (H) Hb 14.3 Plt 248 Hct 40.8 ANC ?? INR 1.5 (H), PTT 54 (H), Anti-Xa ?? BMP Na 150 (H) Cl 116 (H) BUN 12 Glu 112 (H) K 4.8 Co2 23 Cr 1.04 Ca 8.1 (L) iCa 4.7 Mg 4.5 (H), Phos 2.6 Lactate 3.7 (H) LFT AST ?? AlkPhos ?? T Prot ?? ALK ?? Bili ?? Alb ?? D.Bili ?? Imaging as available: === 05/01/24 === XR CHEST 1 VIEW - Narrative - CLINICAL INDICATION: Post-Op Cardiac Surgery TECHNIQUE: XR CHEST 1 VIEW COMPARISON: 05/03/2024 FINDINGS: The cardiomediastinal silhouette is prominent. Endotracheal tube tip overlies mid thoracic trachea.Bilateral chest tubes, mediastinal drain, right IJ [place]- [place] catheter with the tip overlying the main pulmonary artery, median sternotomy wires and mediastinal clips are present. Mild vascular congestion. No pleural effusion or visible pneumothorax. - Impression - Lines and catheters as above Mild vascular congestion CRITICAL RESULT: No COMMUNICATION: Per this written report. Drafted by Camila Barth MD on 05/06/2024 9:12 PM Final report signed by Camila Barth MD on 05/06/2024 9:13 PM Reviewed and agree with above. Assessment and Plan: This patient is critically ill. 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 Surgery consulted CABG work-up pending Anxiety and depression Yes Overview Signed 05/01/2024 11:34 PM by Marylu Carvajal APRN, DNP Continue home bupropion XL 300 mg daily Continue home citalopram 40 mg daily Continue PRN hydroxyzine 25 mg q6 COPD (chronic obstructive pulmonary disease) ([facility] [place]) Yes Overview Addendum 05/01/2024 11:32 PM by Marylu Carvajal APRN, DNP Continue Duo nebs q6 SPO2 goal >88% Tobacco use Yes Overview Signed 05/01/2024 8:37 PM by Marylu Carvajal APRN, DNP 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 Complicates all aspects of care and recovery NSTEMI (non-ST elevated myocardial infarction) ([facility] [place]) Yes Overview Addendum 05/01/2024 8:41 PM by Marylu Carvajal APRN, DNP Diagnosed at OSH with elevated troponins of 0.05 to 0.23 to 0.16 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, 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 Repeat troponins pending GERD (gastroesophageal reflux disease) Yes Overview Signed 05/01/2024 11:32 PM by Marylu Carvajal APRN, DNP Continue Protonix 40 mg daily Leukocytosis Yes Essential tremor Yes Thrombocytosis Yes Hypocalcemia Yes Prolonged Q-T interval on ECG Yes Hyperlipidemia Yes Hypercholesteremia Yes Hypertriglyceridemia Yes Hypoalphalipoproteinemia Yes Overweight Yes THOM (obstructive sleep apnea) Yes S/P CABG x 4 Not Applicable Overview Addendum 05/06/2024 10:09 PM by Cydney Luu MD 05/06 w/Reda 4 chest tubes (mediastinal x2, left pleural, right pleural) A&V wires SBP <140 Aspirin, statin, beta stacey as clinically appropriate On mechanically assisted ventilation (CMS/HCC) Not Applicable Overview Signed 05/06/2024 10:07 PM by Cydney Luu MD Arrived to ICU intubated Low cardiac output syndrome (CMS/HCC) Unknown Overview Signed 05/06/2024 10:08 PM by Cydney Luu MD LVEF 45% Requiring epi Hypertension Unknown Overview Signed 05/06/2024 10:09 PM by Cydney Luu MD Requiring nitroglycerin gtt upon arrival to ICU Hyperkalemia Unknown Overview Signed 05/06/2024 10:11 PM by Cydney Luu MD Intro op max 7.3 Received dextrose, insulin, calcium, lasix intra-op Treat K>5.2 Cardiac volume overload Unknown Overview Signed 05/06/2024 10:12 PM by Cydney Luu MD Diuresis as clinically indicated Cydney Luu MD [1] Past Surgical History: Procedure Laterality Date ABDOMINAL ADHESION SURGERY SECTION, CLASSIC CHOLECYSTECTOMY HAND SURGERY Right Tendon repair SHOULDER SURGERY [2] Social History Tobacco Use Smoking Status Every Day Current packs/day: 0.50 Types: Cigarettes Smokeless Tobacco Never [3] No family history on file. [4] Allergies Allergen Reactions Latex Other - please document in the comment field Oxycodone Nausea * Care Plan - Jessie Miranda - 05/06/2024 9:25 PM EDT Problem: Mechanical Ventilation Invasive Goal: Optimal Device Function Outcome: Ongoing, Progressing * Op Note - Maite Austin MD - 05/06/2024 10:31 AM EDT OPERATIVE NOTE CORONARY ARTERY BYPASS GRAFTING: Date: 05/06/2024 Location: [facility] Name: Rere Hunter, : 1970, Pre-operative Diagnosis: Diagnosis Anxiety and depression COPD (chronic obstructive pulmonary disease) (CMS/HCC) Tobacco use CAD, multiple vessel NSTEMI (non-ST elevated myocardial infarction) (CMS/HCC) GERD (gastroesophageal reflux disease) Leukocytosis Essential tremor Thrombocytosis Hypocalcemia Prolonged Q-T interval on ECG Hyperlipidemia Hypercholesteremia Hypertriglyceridemia Hypoalphalipoproteinemia Overweight THOM (obstructive sleep apnea) Post-operative Diagnosis: Diagnosis Anxiety and depression COPD (chronic obstructive pulmonary disease) (CMS/HCC) Tobacco use CAD, multiple vessel NSTEMI (non-ST elevated myocardial infarction) (CMS/HCC) GERD (gastroesophageal reflux disease) Leukocytosis Essential tremor Thrombocytosis Hypocalcemia Prolonged Q-T interval on ECG Hyperlipidemia Hypercholesteremia Hypertriglyceridemia Hypoalphalipoproteinemia Overweight THOM (obstructive sleep apnea) Operation: Coronary artery bypass grafting x4 with CHOWDARY to LAD as a free graft, reverse saphenous vein graft sequential to ramus intermedius artery then to obtuse marginal artery 1, reverse saphenous vein graftto PDA. Greater saphenous vein vessel harvest of left and right side with endoscopic technique, by LOUIE Menjivar, no qualified resident present to perform this portion. Surgeon: * Maite Austin - Primary * Graciela Blanca - rust Assisting from skin incision until decannulation, no qualified resident present for the part of the operation. Dr. Andrew Wick assisted on the sternotomy closure and soft tissue closure. Anesthesia: General ASA Class: IV Indication: Severe symptomatic coronary artery disease. Brief History: 53-year-old lady with the above-mentioned medical history that includes extensive history of smoking and COPD who was admitted with non ST elevation MS found to have severe three-vessel coronary artery disease including a tight distal left main with trifurcation lesion into ramus, lad, and circumflex artery. The patient received Plavix and her P2Y12 was high and eventually level at 132 so we decided to proceed with the surgery and acceptable bit high-risk of bleeding. The benefits and risks of the procedure including bleeding, infection, poor wound healing, MS, stroke, injury to any organs in the body, heart block requiring pacemaker, arrhythmia, and were explained to the patient and her family. The potential need for blood transfusion with its risks was discussed with the patient. Findings: Surprisingly very fragile tissue on this 53-year-old lady. The coronary arteries were very delicatearteries. We had to harvest saphenous vein from both left and right thighs to get adequate conduits. This was done percutaneously endoscopically. The LAD had diffuse calcification in the CHOWDARY was very fragile and had dissection is distal part that we excluded then we performed the 1st attempt at CHOWDARY to LAD however significant bleeding from the LINDSEY secondary to suture cutting through the actual delicate tissue forced us to re-clamped the aorta and we arrested the heart and redo the anastomosis but at that time we did not have enough length to keep the mammary as an in-situ graft so we detached it from the chest wall and used it as a free graft and even with that it was not long enough to reach another vein graft or the aorta to be used alone so we placed an extension reverse saphenous vein graft to the LINDSEY that we used to perform our proximal anastomosis on the CHOWDARY to LAD graft. Recovery of the heart took significant time due to high potassium level but eventually the patient's off cardiopulmonary bypass with minimal inotropic support and good LV and RV function. The case was unusually and unexpectedly difficult technically due to the fragility of the tissue due to the significant technical difficulty posed by the nature of the LINDSEY in the LAD. Procedure Details: The patient was taken to the operating room placed on operative table supine position, General anesthesia with endotracheal intubation and the appropriate monitoring lines were done by the anesthesiologist. The patient was prepped and draped in the usual surgical fashion. A median sternotomy was performed and at the same time the right and left greater saphenous vein was harvested percutaneously endoscopically. The left internal mammary artery was taken down. Then the patient received heparin, a pericardial well was developed. The aorta was cannulated, the right atrium was cannulated, and thepatient was placed on cardiopulmonary bypass. The aorta was crossclamped and the heart was arrested with cold Del-Nido cardioplegia given both antegrade and retrograde fashion. Reverse saphenous vein graft was anastomosed to the PDA end vein to side artery using running 7 0 Prolene. Another piece of reverse saphenous vein graft was anastomosed to the 1st obtuse marginal artery at the AV groove end vein to side artery using running 7 0 Prolene then the same vein graft was sequential to the ramus intermedius artery anastomosed to it side vein to side artery using running 7 0 Prolene. Then the vein graft to the aorta were measured and 2 separate punch holes were made in the aorta each vein graft was anastomosed to the aorta using running 6 0 Prolene. Then the left internal mammary artery was anastomosed to the LAD, end Chowdary to side LAD using running 7 0 Prolene. Rebel removed the clamp and the heart and the patient's hemodynamics recovered quickly however we started seeing bleeding all of a sudden from the heel of the CHOWDARY to LAD anastomosis and when we examined it it was 1 of the sutures staring through the wall of the CHOWDARY which was not surprising given how delicate the CHOWDARY tissue were. So we decided to re- clamped the aorta and arrestedthe heart again with antegrade Del Nido cardioplegia. Then we detached the CHOWDARY to LAD anastomosis and we freshened the edges of the CHOWDARY graft but at that time JESENIA graft was too short to reach heart so we detached the CHOWDARY proximally from the subclavian artery and we controlled the stump of the CHOWDARY and that site. Then we anastomosed distal end of the free CHOWDARY to the LAD. The resulting free CHOWDARY graft was too short to reach the aorta or to reach the side of the other left vein graft so I brought a reverse saphenous vein graft as an extension and anastomosed the end of that vein graft to the proximal end of the LINDSEY using running 7 0 Prolene then the result resulting composite graft lengthwas measured to the aorta and 1 punch hole was made in the aorta and the vein side of the now free CHOWDARY graft was anastomosed to the aorta using running 6 0 Prolene. Then the patient was rewarmed cross clamp was removed and as his hemodynamics became good de-airingwas verified by transesophageal echo, and he was weaned off cardiopulmonary bypass which required significant amount of time until we were able to bring the patient's potassium level from 6.8 to below 5 in the patient then off cardiopulmonary bypass with minimal inotropic support. Heparin was reversed with protamine and the cannulas were removed. Two atrial wires, 2 ventricular wires, 2 mediastinal drains, and 1 right and 1 left pleural drain were placed. Hemostasis was obtained and the closure was as per routine total bypass time was 333 minutes and total cross-clamp time was 240 minutes Drains: mediastinal x 2, bilateral pleural drain. Complications: None; patient tolerated the procedure well. Disposition: ICU - intubated and hemodynamically stable. Condition: stable Submitted by: Maite Austin MD - 05/06/2024 * Significant Event - Abran Hull MD - 05/06/2024 6:44 AM EDT Patient to OR today for coronary artery bypass grafting and all other indicated procedures. - History and physical note at admission/most recent progress note reviewed with no significant changes noted. - The risks, benefits, indications, contraindications, and surgical alternatives were explained. Specifically, the risks of surgery, including bleeding, infection, injury to nearby organs or structures, need for additional surgery/procedures, wound complications, and complications of general anesthe mary. Commonly associated risks of the procedure were also discussed and all questions were answered. - Written and informed consent was obtained on 05/05/24. - NYHA Class I - last dose of beta stacey yesterday - NPO since midnight. Andrew Hull MD Cardiothoracic Surgery Pager: [phone] * Significant Event - Trinity Yousif APRN - 05/05/2024 3:55 PM EDT Long conversation with Ms. Rere Hunter about the risks and benefits of this procedure. Risks include but are not limited to bleeding, infection, stroke, poor wound healing, heart attack, heart rhythm disturbances, respiratory failure, kidney failure, failure of the grafts, worsening cardiac function and . If a blood transfusion is used, additional risks related to the use of blood products, including reaction and infection could occur. Patient understands the risks vs benefits, and wants to proceed with surgical intervention. Patient signed the consent, which was placed / uploaded on the chart. Pre-op orders have been placed. NPO after MN. CT surgery pager [phone] * Progress Notes - Trinity Yousif APRN - 05/05/2024 7:55 AM EDT CVT Progress Note 24 Hour Events/HPI: Resting quietly in bed. No complaints during morning rounds. Denies CP and SOA.No acute events overnight. Afebrile and hemodynamically stable. Review of Systems: A complete ROS was obtained. All were negative except as noted in HPI. Objective: All laboratory data, images, tracings, and vital sign data for past 24 hours are personally reviewed unless otherwise noted. All images personally reviewed and I agree with the radiology interpretation @PATIENTWT@ , Weight: 61.1 kg (134 lb 12.8 oz) , Ht Readings from Last 1 Encounters: 05/04/24 1.549 m (5' 1 ) , Body mass index is 25.62 kg/m??. VITALS (last 24h) Temp: [36.6 ??C (97.8 ??F)-37 ??C (98.6 ??F)] 36.7 ??C (98 ??F) Heart Rate: [64-85] 75 Resp: [12-26] 23 BP: (106-126)/(52-71) 106/52 Visit Vitals BP 106/52 (BP Location: Left arm, Patient Position: Lying) Pulse 75 Temp 36.7 ??C (98 ??F) (Oral) Resp 23 Ht 1.549 m (5' 1 ) Wt 61.5 kg (135 lb 9.3 oz) SpO2 97% BMI 25.62 kg/m?? Smoking Status Every Day BSA 1.63 m?? I & O Summary Intake/Output Summary (Last 24 hours) at 05/05/2024 0755 Last data filed at 05/04/2024 1940 Gross per 24 hour Intake 822 ml Output -- Net 822 ml LABS CBC WBC 13.31 (H) Hb 12.2 Plt 378 (H) Hct 35.1 ANC ?? INR ??, PTT ??, Anti-Xa ?? BMP Na 136 Cl 103 BUN 11 Glu 147 (H) K 3.9 Co2 20 (L) Cr 0.84 Ca 8.6 (L) iCa ?? Mg 1.9, Phos ?? Lactate ?? LFT AST 36 (H) AlkPhos 142 (H) T Prot 6.5 ALK 28 Bili <0.2 (L) Alb ?? D.Bili ?? HOURS) MEDICATIONS aspirin, 81 mg, Oral, Daily atorvastatin, 80 mg, Oral, Nightly buPROPion XL, 300 mg, Oral, Daily citalopram, 40 mg, Oral, Daily isosorbide mononitrate ER, 30 mg, Oral, Daily melatonin, 6 mg, Oral, Nightly metoprolol tartrate, 12.5 mg, Oral, BID pantoprazole, 40 mg, Oral, Daily primidone, 50 mg, Oral, BID sodium chloride, 10 mL, Intravenous, q12h heparin - COM Adult ACS/MS Protocol - MAR calculator by anti-Xa, 0-35 Units/kg/hr, Last Rate: 13.9 Units/kg/hr (05/04/242037) PRN medications: acetaminophen, ALPRAZolam, calcium carbonate, heparin (porcine) - [facility] Adult ACS/MIProtocol - MAR Re-bolus Calculator, hydrOXYzine HCl, ipratropium-albuterol, nitroglycerin, Insert peripheral IV AND Saline lock IV AND sodium chloride AND sodium chloride Physical Exam: GENERAL: Well developed, well nourished. No acute distress. EYES: No scleral icterus or conjunctivitis HENT: Atraumatic, normocephalic, nares patent, mucus membranes moist NECK: Supple, no evidence of bruit bilaterally RESP/CHEST: Clear to auscultation bilaterally with symmetric expansion; non labored. CARD: RRR. S1S2. No murmur, rub, or gallop. No JVD. No lower extremity edema. Pedal pulses palpable+2. Extremities: No cyanosis or clubbing. GI: Soft, nontender, nondistended. BS present and normoactive x 4 quadrants SKIN: No rash, sores, lesions or subcutaneous nodules. NEURO: AAOx4. Motor intact and no focal deficits PSYCH: Mood and affect congruent and appropriate to situation. Assessment and Plan: Ms. Rere Hunter is a 53 year old with PMH significant for anxiety, depression, COPD, and tobacco abuse. She [facility]. She ruled in for NSTEMI and underwent cardiac catheterization. She was found to have multivessel CAD with critical left main stenosis. She was transferred to for surgical revascularization evaluation. Multivessel CAD (POA) NSTEMI on presentation - troponins 0.05->0.23->0.16 - s/p Plavix load (600mg) - P2Y12 56 on 05/01-> 137 (05/03) - ASA, atorvastatin and beta-stacey - films uploaded in [facility] and reviewed with Dr. Chery - Pre-op studies completed and reviewed - Ct chest obtained and reviewed - Echo: LVEF 61, no significant valvular dz - Holding plavix to allow washout - Continue heparin gtt - Add imdur - Repeat P2y12i @ 4am - To OR tomorrow for CABG with Dr. Chery - NPO p MN - Preop orders placed - Consent obtained and placed on chart. - OR cancelled, still inhibited, p2y12 100 - repeat p2y12 78, repeat in a.m - 05/05: p2y12 132 Leukocytosis (POA) - possible reactive secondary to MS - WBC 12.8, afebrile - continue to monitor - 05/05: WBC 13.31, afebrile Thrombocytosis (POA) - continue to monitor - platelets 372 Hypocalcemia (POA) - monitor and replete prn Prolonged QT (POA) - continue to monitor rhythm Hyperlipidemia (POA) Hypercholesteremia (POA) Hypertriglyceridemia (POA) Hypoalphalipoproteinemia (POA) - statin COPD (POA) - Duonebs ordered - PFTs completed Anxiety (POA) Depression (POA) - continue home bupropion and citalopram - Add prn xanax Tremor (POA) - Hold propanolol. Continue metoprolol - continue home primidone GERD (POA) - PPI added - PRN tums THOM (POA) - needs outpt sleep study, will defer to PCP - supplemental O2 as needed Tobacco abuse (POA) - complicates all aspects of care - cessation counseling - NRT prn Overweight (POA) - BMI 25.47 - complicates all aspects of care Plan: Continue current plan of care. Plan for OR tomorrow for CABG with Dr. Austin. Cardiothoracic Surgery [phone] Cosigned by Maite Austin MD at 05/05/2024 4:24 PM EDT Associated attestation - Maite Austin MD - 05/05/2024 4:24 PM EDT Seen and examined and records reviewed and discussed with Ms. Yousif I agree with her note and plan.The patient has severe symptomatic three-vessel coronary artery disease and will benefit from coronary artery bypass grafting. The plan is to proceed with surgery tomorrow.The benefits and risks of the procedure including bleeding, infection, poor wound healing, MS, stroke, injury to any organs in the body, heart block requiring pacemaker, arrhythmia, and were explained to the patient and her family. The potential need for blood transfusion with its risks was discussed with the patient. * Progress Notes - Trinity Yousif APRN - 05/04/2024 6:55 AM EDT CVT Progress Note 24 Hour Events/HPI: Resting quietly in bed, family at bedside. No complaints during morning rounds.Denies CP and SOA. No acute events overnight. Afebrile and hemodynamically stable. Review of Systems: A complete ROS was obtained. All were negative except as noted in HPI. Objective: All laboratory data, images, tracings, and vital sign data for past 24 hours are personally reviewed unless otherwise noted. @PATIENTWT@ , Weight: 61.1 kg (134 lb 12.8 oz) , Ht Readings from Last 1 Encounters: 06/28/23 1.549 m (5' 1 ) , Body mass index is 25.68 kg/m??. VITALS (last 24h) Temp: [36.8 ??C (98.3 ??F)-37 ??C (98.6 ??F)] 37 ??C (98.6 ??F) Heart Rate: [61-93] 66 Resp: [11-27] 20 BP: (90-133)/(49-80) 93/53 Visit Vitals BP 93/53 Pulse 66 Temp 37 ??C (98.6 ??F) Resp 20 Wt 61.6 kg (135 lb 14.4 oz) SpO2 95% BMI 25.68 kg/m?? Smoking Status Every Day BSA 1.63 m?? I & O Summary Intake/Output Summary (Last 24 hours) at 05/04/2024 0655 Last data filed at 05/04/2024 0350 Gross per 24 hour Intake 992.48 ml Output 1 ml Net 991.48 ml LABS CBC WBC 12.80 (H) Hb 11.8 Plt 372 (H) Hct 34.8 ANC ?? INR ??, PTT ??, Anti-Xa ?? BMP Na 139 Cl 104 BUN 12 Glu 109 (H) K 3.5 (L) Co2 25 Cr 0.94 Ca 8.4 (L) iCa ?? Mg 2.0, Phos ?? Lactate ?? LFT AST ?? AlkPhos ?? T Prot ?? ALK ?? Bili ?? Alb ?? D.Bili ?? HOURS) MEDICATIONS aspirin, 81 mg, Oral, Daily atorvastatin, 80 mg, Oral, Nightly buPROPion XL, 300 mg, Oral, Daily citalopram, 40 mg, Oral, Daily isosorbide mononitrate ER, 30 mg, Oral, Daily melatonin, 6 mg, Oral, Nightly metoprolol tartrate, 12.5 mg, Oral, BID pantoprazole, 40 mg, Oral, Daily primidone, 50 mg, Oral, BID sodium chloride, 10 mL, Intravenous, q12h [Held by provider] heparin - COM Adult ACS/MS Protocol - MAR calculator by anti- Xa, 0-35 Units/kg/hr, Last Rate: Stopped (05/04/24 0350) PRN medications: acetaminophen, ALPRAZolam, calcium carbonate, heparin (porcine) - COM Adult ACS/MIProtocol - MAR Re-bolus Calculator, hydrOXYzine HCl, ipratropium-albuterol, nitroglycerin, Insert peripheral IV AND Saline lock IV AND sodium chloride AND sodium chloride Physical Exam: GENERAL: Well developed, well nourished. No acute distress. EYES: No scleral icterus or conjunctivitis HENT: Atraumatic, normocephalic, nares patent, mucus membranes moist NECK: Supple, no evidence of bruit bilaterally RESP/CHEST: Clear to auscultation bilaterally with symmetric expansion; non labored. CARD: RRR. S1S2. No murmur, rub, or gallop. No JVD. No lower extremity edema. Pedal pulses palpable+2. Extremities: No cyanosis or clubbing. GI: Soft, nontender, nondistended. BS present and normoactive x 4 quadrants SKIN: No rash, sores, lesions or subcutaneous nodules. NEURO: AAOx4. Motor intact and no focal deficits PSYCH: Mood and affect congruent and appropriate to situation. Assessment and Plan: Ms. Rere Hunter is a 53 year old with PMH significant for anxiety, depression, COPD, and tobacco abuse. She initially presented to [facility]. She ruled in for NSTEMI and underwent cardiac catheterization. She was found to have multivessel CAD with critical left main stenosis. She was transferred to for surgical revascularization evaluation. Multivessel CAD (POA) NSTEMI on presentation - troponins 0.05->0.23->0.16 - s/p Plavix load (600mg) - P2Y12 56 on 05/01-> 137 (05/03) - ASA, atorvastatin and beta-stacey - films uploaded in [facility] and reviewed with Dr. Chery - Pre-op studies completed and reviewed - Ct chest obtained and reviewed - Echo: LVEF 61, no significant valvular dz - Holding plavix to allow washout - Continue heparin gtt - Add imdur - Repeat P2y12i @ 4am - To OR tomorrow for CABG with Dr. Chery - NPO p MN - Preop orders placed - Consent obtained and placed on chart. - OR cancelled, still inhibited, p2y12 100 - repeat p2y12 78, repeat in a.m Leukocytosis (POA) - possible reactive secondary to MS - WBC 12.8, afebrile - continue to monitor Thrombocytosis (POA) - continue to monitor - platelets 372 Hypocalcemia (POA) - monitor and replete prn Prolonged QT (POA) - continue to monitor rhythm Hyperlipidemia (POA) Hypercholesteremia (POA) Hypertriglyceridemia (POA) Hypoalphalipoproteinemia (POA) - statin COPD (POA) - Duonebs ordered - PFTs completed Anxiety (POA) Depression (POA) - continue home bupropion and citalopram - Add prn xanax Tremor (POA) - Hold propanolol. Continue metoprolol - continue home primidone GERD (POA) - PPI added - PRN tums THOM (POA) - needs outpt sleep study, will defer to PCP - supplemental O2 as needed Tobacco abuse (POA) - complicates all aspects of care - cessation counseling - NRT prn Overweight (POA) - BMI 25.47 - complicates all aspects of care Plan: Repeat p2y12 in a.m. OR plan pending, tentatively planned for 05/[address] Austin. Continue current plan of care. Cardiothoracic Surgery [phone] * Care Plan - Maite Paulson RN - 05/03/2024 8:14 PM EDT Problem: Adult Inpatient Plan of Care Goal: Plan of Care Review Outcome: Ongoing, Progressing Flowsheets (Taken 05/03/20242013) Progress: no change Plan of Care Reviewed With: patient Goal: Patient-Specific Goal (Individualized) Outcome: Ongoing, Progressing Goal: Absence of Hospital-Acquired Illness or Injury Outcome: Ongoing, Progressing Goal: Optimal Comfort and Wellbeing Outcome: Ongoing, Progressing Goal: Readiness for Transition of Care Outcome: Ongoing, Progressing * Can Alex - Vicky Caruso RN - 05/03/2024 6:49 PM EDT Images from the original note were not included. 683 Visiting Family Member Verification Form This notice verifies that was in our facility today (or on , if checked [ ]). He/she was here with (relationship: ). * Can Abi - Vicky Caruso RN - 05/03/2024 6:49 PM EDT Images from the original note were not included. 683 Visiting Family Member Verification Form This notice verifies that was in our facility today (or on , if checked [ ]). He/she was here with (relationship: ). * Progress Notes - Shola Sheridan, ARASH - 05/03/2024 10:43 AM EDT CVT Progress Note 24 Hour Events/HPI: Reports she did not rest well overnight. States she fell out of the bed. Denies chest pain. Dr. Chery discussed surgical plan with Ms. Hunter. Pt agreeable to proceeding with OR tomorrow. Review of Systems: A complete ROS was obtained. All were negative except as noted in HPI. Objective: All laboratory data, images, tracings, and vital sign data for past 24 hours are personally reviewed unless otherwise noted. @PATIENTWT@ , Weight: 61.1 kg (134 lb 12.8 oz) , Ht Readings from Last 1 Encounters: 06/28/23 1.549 m (5' 1 ) , Body mass index is 25.47 kg/m??. VITALS (last 24h) Temp: [36.8 ??C (98.2 ??F)-37.1 ??C (98.7 ??F)] 36.9 ??C (98.5 ??F) Heart Rate: [61-89] 71 Resp: [11-27] 18 BP: (85-127)/(41-75) 101/56 Visit Vitals BP 101/56 Pulse 71 Temp 36.9 ??C (98.5 ??F) Resp 18 Wt 61.1 kg (134 lb 12.8 oz) SpO2 91% BMI 25.47 kg/m?? Smoking Status Every Day BSA 1.62 m?? I & O Summary Intake/Output Summary (Last 24 hours) at 05/03/2024 1043 Last data filed at 05/03/2024 1000 Gross per 24 hour Intake 526.26 ml Output -- Net 526.26 ml LABS CBC WBC 11.21 (H) Hb 11.9 Plt 353 Hct 34.0 ANC ?? INR ??, PTT ??, Anti-Xa ?? BMP Na 137 Cl 103 BUN 11 Glu 106 (H) K 3.7 Co2 25 Cr 0.94 Ca 8.6 (L) iCa ?? Mg 2.1, Phos ?? Lactate ?? LFT AST ?? AlkPhos ?? T Prot ?? ALK ?? Bili ?? Alb ?? D.Bili ?? HOURS) MEDICATIONS aspirin, 81 mg, Oral, Daily atorvastatin, 80 mg, Oral, Nightly buPROPion XL, 300 mg, Oral, Daily citalopram, 40 mg, Oral, Daily isosorbide mononitrate ER, 30 mg, Oral, Daily melatonin, 6 mg, Oral, Nightly metoprolol tartrate, 12.5 mg, Oral, BID pantoprazole, 40 mg, Oral, Daily primidone, 50 mg, Oral, BID sodium chloride, 10 mL, Intravenous, q12h heparin - COM Adult ACS/MS Protocol - MAR calculator by anti-Xa, 0-35 Units/kg/hr, Last Rate: 12.9 Units/kg/hr (05/03/24 0726) PRN medications: acetaminophen, ALPRAZolam, calcium carbonate, heparin (porcine) - COM Adult ACS/MIProtocol - MAR Re-bolus Calculator, hydrOXYzine HCl, ipratropium-albuterol, nitroglycerin, Insert peripheral IV AND Saline lock IV AND sodium chloride AND sodium chloride Physical Exam: GENERAL: 53F. NAD on RA EYES: No scleral icterus or conjunctivitis HENT: Atraumatic, normocephalic, nares patent, mucus membranes moist NECK: Supple, trachea midline RESP/CHEST: Symmetric expansion; non labored. CTA bilaterally. CARD: regular rate and rhythm, normal S1 and S2, no murmur, rub, or gallop, Pedal pulses palpable +2. , no JVD. No edema Extremities: No cyanosis or clubbing. GI: Soft, Nontender, nondistended. BS present and normoactive x 4 quadrants SKIN: No rash. NEURO: AAOx4. Motor intact and no focal deficits PSYCH: Mood and affect congruent and appropriate to situation. Assessment and Plan: MVCAD NSTEMI - troponins 0.05->0.23->0.16 - s/p Plavix load (600mg) - P2Y12 56 on 05/01-> 137 (05/03) - ASA, atorvastatin and beta-stacey - films uploaded in [facility] and reviewed with Dr. Chery - Pre-op studies completed and reviewed - Ct chest obtained and reviewed - Echo: LVEF 61, no significant valvular dz - Holding plavix to allow washout - Continue heparin gtt - Add imdur - Repeat P2y12i @ 4am - To OR tomorrow for CABG with Dr. Chery - NPO p MN - Preop orders placed - Consent obtained and placed on chart. HLD - statin Leukocytosis - possible reactive secondary to MS - afebrile - monitor COPD - Duonebs ordered - PFTs completed Anxiety/Depression - continue home bupropion and citalopram - Add prn xanax Tremor - Hold propanolol. Continue metoprolol - continue home primidone GERD - PPI added - PRN tums THOM? - needs outpt sleep study, will defer to PCP - supplemental O2 as needed Overweight - BMI 25.47 - complicates all aspects of care Plan: - Repeat P2y12i @ 4am - To OR tomorrow for CABG with Dr. Chery - NPO p MN - Preop orders placed - Consent obtained and placed on chart. - Hold heparin gtt at 4am Cardiothoracic Surgery [phone] * Progress Notes - Annika Perez RN - 05/03/2024 9:40 AM EDT Case Management Adult Progress Note Rere Hunter 53 y.o. female CSN: [id number] Admission: 05/01/2024 11:01 PM Primary Problem: CAD, multiple vessel Anticipated Discharge Date: tbd Additional Comments: CM chart review. Cm attended rounding this AM to discuss POC with MD. Patient is not medically ready at this time, OR plan pending P2Y12 results. Cm/SW will follow and arrange any discharge needs closer to discharge. Annika Perez RN * Can Alex - Vicky Caruso RN - 05/02/2024 3:57 PM EDT Images from the original note were not included. 683 Visiting Family Member Verification Form This notice verifies that was in our facility today (or on , if checked [ ]). He/she was here with (relationship: ). * Progress Notes - Shola Sheridan APRN - 05/02/2024 2:18 PM EDT CVT Progress Note 24 Hour Events/HPI: Admitted overnight. Denies chest pain but did endorse an episode of epigastric burn. Treated with tums and reports improvement. Pt reports she had been experiencing this sensation over the past 1-2 weeks. Unclear if this dyspepsia or anginal equivalent. Review of Systems: A complete ROS was obtained. All were negative except as noted in HPI. Objective: All laboratory data, images, tracings, and vital sign data for past 24 hours are personally reviewed unless otherwise noted. @PATIENTWT@ , Weight: 61.1 kg (134 lb 12.8 oz) , Ht Readings from Last 1 Encounters: 06/28/23 1.549 m (5' 1 ) , Body mass index is 25.47 kg/m??. VITALS (last 24h) Temp: [36.7 ??C (98.1 ??F)-36.9 ??C (98.4 ??F)] 36.9 ??C (98.4 ??F) Heart Rate: [67-82] 73 Resp: [14-26] 16 BP: (101-139)/(49-76) 126/53 Visit Vitals BP 126/53 Pulse 73 Temp 36.9 ??C (98.4 ??F) (Oral) Resp 16 Wt 61.1 kg (134 lb 12.8 oz) SpO2 98% BMI 25.47 kg/m?? Smoking Status Every Day BSA 1.62 m?? I & O Summary Intake/Output Summary (Last 24 hours) at 05/02/2024 1418 Last data filed at 05/02/2024 1200 Gross per 24 hour Intake 47.4 ml Output -- Net 47.4 ml LABS CBC WBC 13.10 (H) Hb 12.8 Plt 374 (H) Hct 35.9 ANC 6.81 (H) INR 1.0, PTT 79 (H), Anti-Xa ?? BMP Na 137 Cl 104 BUN 9 Glu 97 K 3.6 Co2 22 Cr 0.85 Ca 8.5 (L) iCa ?? Mg 2.3, Phos 3.6 Lactate ?? LFT AST 21 AlkPhos 124 (H) T Prot 6.3 ALK 17 Bili 0.4 Alb ?? D.Bili ?? HOURS) MEDICATIONS aspirin, 81 mg, Oral, Daily atorvastatin, 80 mg, Oral, Nightly buPROPion XL, 300 mg, Oral, Daily citalopram, 40 mg, Oral, Daily isosorbide mononitrate ER, 30 mg, Oral, Daily metoprolol tartrate, 12.5 mg, Oral, BID pantoprazole, 40 mg, Oral, Daily sodium chloride, 10 mL, Intravenous, q12h heparin - COM Adult ACS/MS Protocol - APR calculator by anti-Xa, 0-35 Units/kg/hr, Last Rate: 13 Units/kg/hr (05/02/24 0737) PRN medications: calcium carbonate, heparin (porcine) - COM Adult ACS/MS Protocol - APR Re-bolus Calculator, hydrOXYzine HCl, ipratropium-albuterol, nitroglycerin, Insert peripheral IV AND [place] IV AND sodium chloride AND sodium chloride Physical Exam: GENERAL: 53F. NAD on RA EYES: No scleral icterus or conjunctivitis HENT: Atraumatic, normocephalic, nares patent, mucus membranes moist NECK: Supple, trachea midline RESP/CHEST: Symmetric expansion; non labored. CTA bilaterally. CARD: regular rate and rhythm, normal S1 and S2, no murmur, rub, or gallop, Pedal pulses palpable +2. , no JVD. No edema Extremities: No cyanosis or clubbing. GI: Soft, Nontender, nondistended. BS present and normoactive x 4 quadrants SKIN: No rash. NEURO: AAOx4. Motor intact and no focal deficits PSYCH: Mood and affect congruent and appropriate to situation. Assessment and Plan: MVCAD NSTEMI - troponins 0.05->0.23->0.16 - s/p Plavix load (600mg) - P2Y12 56 on 05/01 - ASA, atorvastatin and beta-stacey - films uploaded in [facility] and reviewed with Dr. Chery - Pre-op studies ordered and pending - Ct chest obtained and reviewed - Echo: LVEF 61, no significant valvular dz - Holding plavix to allow washout - Daily p2y12 assays - Continue heparin gtt - Add imdur - Case requested for Tuesday pending P2y12 washout HLD - statin Leukocytosis - possible reactive secondary to MS - afebrile - monitor COPD - Duonebs ordered - PFTs pending Anxiety/Depression - continue home bupropion and citalopram Tremor - DC primidone as pt reports she was not taking - Pt was taking propanolol at home for tremors - Hold propanolol. Continue metoprolol GERD - PPI added - PRN tums THOM? - needs outpt sleep study, will defer to PCP - supplemental O2 as needed Overweight - BMI 25.47 - complicates all aspects of care Plan: - Pre-op studies pending - Holding plavix to allow washout - Daily p2y12 assays - Continue heparin gtt - Add imdur - Case requested for Tuesday pending P2y12 washout Cardiothoracic Surgery [phone] * Progress Notes - Annika Perez RN - 05/02/2024 1:05 PM EDT Case Management Adult Initial Progress Note Rere Hunter 53 y.o. female CSN: [id number] Admission: 05/01/2024 11:01 PM Primary Problem: CAD, multiple vessel Death Claim Examiner reviewed chart and spoke with the patient at bedside to complete this Initial Case Management Assessment. PCP: Champ Quiroz MD Emergency Contact: Extended Emergency Contact Information Primary Emergency Contact: janeth mcknight Mobile Relation: Daughter Preferred language: Estonian Tester Equipment needed? No Insurance: Primary Visit Coverage Payer Plan Sponsor Code Group Number Group Name [facility] [employer] MED[employer] [facility] [employer] Primary Visit Coverage Subscriber Subscriber ID Subscriber Name Subscriber SSN Subscriber Address [id number] RERE HUNTER [id number] [place] [address] Patient information: Primary Caregiver: Self Support System: Immediate family Daily Living Activities: Functional Status: Independent Living Arrangements: Family Type of Residence: Private residence, Single Level [address] [place] [address] Current DME: Equipment Currently Used at Home: none Income Information: Income Source: Retired Income/Expense Information: Income meets expenses Current Resources Utilized: None Housing Circumstances-Z Codes: Housing Circumstances (select all that apply): None Applicable Patient Referred to: Financial Resources: Other (Comment) (n/a) Anticipated Discharge Date: tbd Patient's Discharge Goal: Patient/Family Anticipates Transition to: home with family Assistance Available at Discharge: Availability of Care Givers (#Hours): No assistance needed Discharge Transport: Transportation Anticipated: family or friend will provide Follow Up Transport: Transportation Needed to Follow up Appoinments: Family/Friend will Provide Home Health / Home Infusion / Outpatient Dialysis Services: n/a Living Will/Advance Directive/Power of Senior User Experience Architect /Guardian: Unable to assess: No Have you reviewed your Advance Directive and is it valid for this stay?: No Advance Directive: Patient does not have advance directive Information Provided on Healthcare Directives: No Pre-existing DNR/DNI Order: No Patient Requests Assistance: No Additional Comments:KRISTINA PATEL met with patient at bedside for initial eval. Confirmed address: on file.Lives with family in a single level home. Patient states she was independent prior to admit. Deniesprior DME/HH/O2/HD/Abx. PCP is Dr. Quiroz in [place]. Has [employer] Medicaid insurance and uses the [facility] pharmacy. Daughter to transport and assist as needed at discharge. No current SW/CM needs identified. Will continue to follow and assist. Annika Perez RN * Consults - Anne Marie Johnson PA - 05/02/2024 4:54 AM EDTAssociated Order(s): IP CONSULT TO CARDIAC SURGERY Reason for visit / Chief Complaint: Coronary Artery Disease History of present illness: Rere Hunter is a 53 y.o. female with a history of anxiety/depression, COPD and ongoing tobacco abuse who was referred to us in consultation by the [facility] after being transferred in from [facility] for possible surgical revascularization. Patient presented to OSH 2 days ago with symptoms of chest pain/burning associated with increased SOA. She ruled in for a NSTEMI and underwent cardiac catheterization. This revealed MVCAD including critical left main stenosis. She states she also had an echocardiogram performed though no films or report was sent. She has not had any chest pain since arriving at . She denies any history of HTN (was on propranolol previously for tremor), hyperlipidemia, Diabetes,TIA/CVA or heart failure. She believes she might have sleep apnea but has never had a sleep study. She snores and does not feel well-rested. Her chronic comorbid conditions that impact our treatment planning include: Ischemic Bowel NYHA Classification: Class II: Mild symptoms with ordinary activity. Active Problems: Patient Active Problem List Diagnosis Date Noted Anxiety and depression 05/01/2024 COPD (chronic obstructive pulmonary disease) ([facility]) 05/01/2024 Tobacco use 05/01/2024 CAD, multiple vessel 05/01/2024 NSTEMI (non-ST elevated myocardial infarction) ([facility]) 05/01/2024 GERD (gastroesophageal reflux disease) 05/01/2024 Tremor 05/01/2024 HTN (hypertension) 05/01/2024 Medical History: Past Medical History: Diagnosis Date Anxiety COPD (chronic obstructive pulmonary disease) ([facility]) 05/01/2024 Continue Duo nebs q6 SPO2 goal >88% Depression GERD (gastroesophageal reflux disease) 05/01/2024 Continue Protonix 40 mg daily Tobacco use 05/01/2024 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 Complicates all aspects of care and recovery Tremor 05/01/2024 Continue home primidone 50 mg BID Surgical History: x 3 Cataracts Brianna Social History: Tobacco: Smokes ~ 1/2 ppd for 30 years. In process of quitting Alcohol: Occasionally Illicit drug use: None Family History: Father with coronary stents, unknown age Home medications: Patient doesn't remember all of them. She is taking primidone, citalopram, bupropion and has an albuterol MDI she uses PRN Physical exam: Visit Vitals BP (!) 101/49 Pulse 77 Wt 61.1 kg (134 lb 12.8 oz) SpO2 94% BMI 25.47 kg/m?? CONSTITUTIONAL: WNWD pleasant female. Resting comfortably in NAD HENMT: Head atraumatic, normocephalic, Normal hearing, Nares patent, Moist mucous membranes withoutpallor, normal dentition EYES: PERRLA. No scleral icterus or conjunctivitis. NECK: Supple. Nontender. No JVD. The trachea appears midline. No lymphademopathy PULM: Breath sounds clear throughout. EEB. No retractions. CARDIAC: RRR, S1S2. No murmur, rubs, or gallop. Palpable DP and PT pulses noted bilaterally. No edema MUSK: No kyphosis, scoliosis or other bony abnormalities; muscle strength intact GI: Abdomen soft, nontender, nondistended. BSA No HSM noted : deferred SKIN: No rashes or lesions. No cyanosis or clubbing. NEURO: Awake and oriented x3. Moves all extremities with purpose. PSYCH: Cooperative with care. Mood & affect congruent and appropriate to situation. Labs: CBC WBC 13.10 (H) Hb 12.8 Plt 374 (H) Hct 35.9 ANC 6.81 (H) INR 1.0, PTT 79 (H) BMP Na 137 Cl 104 BUN 9 Glu 97 K 3.6 Co2 22 Cr 0.85 Ca 8.5 (L) iCa ?? Mg 2.3, Phos 3.6 LFT AST 21 AlkPhos 124 (H) T Prot 6.3 ALK 17 Bili 0.4 Alb ?? Imaging: Neither Echo images nor report sent Cardiac Cath Results: Images uploaded Impression: MVCAD NSTEMI - troponins 0.05->0.23->0.16 - s/p Plavix load (600mg) - P2Y12 56 - ASA, atorvastatin and beta-stacey - films uploaded in [facility] - Pre-op studies ordered - obtain lipid panel and A1c Leukocytosis - possible reactive secondary to MS - monitor COPD - Duonebs ordered Anxiety/Depression - continue home bupropion and citalopram Tremor - continue home primidone GERD - PPI added THOM? - needs outpt sleep study, will defer to PCP Plan: - Obtain pre-op studies - Allow Plavix washout - Review films with Dr. Chery - OR plan pending * H&P - Marylu Carvajal APRN, JORGE - 05/01/2024 11:36 PM EDT Images from the original note were not included. STAR Unit History and Physical HPI Rere Hunter is a 53 y.o. female with a PMH of CAD, HTN, COPD, GERD, tremor, anxiety, depression, and tobacco use who presented to [facility] on 05/01/24 c/o chest pain. Loaded with ASA and Plavix. LHC at OSH performed today showed critical distal left main artery stenosis. Also diagnosed with NSTEMI at OSH with elevated troponins of 0.05 to 0.23 to 0.16. Placed on a heparin drip prior to arrival. Transferred to [facility] on 05/01/24 for CABG evaluation by CT Surgery. Upon arrival to the STAR unit, the patient is a GCS of 15, on room air, and hemodynamically stable. CT Surgery notified of patient's arrival. CABG work-up and appropriate home medications were ordered. Lines/Drains/Tubes: PIV Last antibiotic: Patient recently received an antibiotic (last 12 hours) None Past Medical History: Active Ambulatory Problems Diagnosis Date Noted No Active Ambulatory Problems Resolved Ambulatory Problems Diagnosis Date Noted No Resolved Ambulatory Problems Past Medical History: Diagnosis Date Anxiety Depression Past Surgical History: Surgical History[1] Home Medications: Prior to Admission medications Medication Sig Start Date End Date Taking? Authorizing Provider buPROPion XL (Wellbutrin XL) 150 MG 24 hr tablet TAKE 1 TABLET BY MOUTH EVERY 24 HOURS FOR 30 DAYS Jaden Correa MD cephalexin (Keflex) 500 MG capsule TAKE 1 CAPSULE BY MOUTH THREE TIMES DAILY FOR 5 DAYS Patient not taking: Reported on 04/26/2023 01/17/23 Jaden Correa MD citalopram (CeleXA) 40 MG tablet Take 1 tablet (40 mg) by mouth. 12/30/22 Jaden Correa MD clonazePAM (KlonoPIN) 0.5 MG tablet TAKE 1/2 (ONE-HALF) TABLET BY MOUTH ONCE DAILY IN THE EVENING FOR 30 DAYS 07/24/22 Jaden Correa MD Combivent Respimat 20-100 MCG/ACT inhaler INHALE 1 PUFF BY MOUTH 4 TIMES DAILY 03/07/23 Jaden Correa MD cyclobenzaprine (Flexeril) 5 MG tablet Take 1 tablet (5 mg) by mouth at night if needed. 10/28/22 Jaden Correa MD diclofenac (Voltaren) 75 MG EC tablet Take 1 tablet (75 mg) by mouth 2 (two) times a day. 10/28/22 Jaden Correa MD escitalopram (Lexapro) 20 MG tablet Take 1 tablet (20 mg) by mouth 2 (two) times a day. Jaden Correa MD fluconazole (Diflucan) 100 MG tablet TAKE 1 TABLET BY MOUTH ONCE DAILY FOR 7 DAYS Patient not taking: Reported on 04/26/2023 05/10/22 Jaden Correa MD hydrOXYzine HCl (Atarax) 10 MG tablet TAKE 2 TABLETS BY MOUTH EVERY 8 HOURS FOR 15 DAYS Jaden Correa MD ibuprofen 600 MG tablet Take 1 tablet (600 mg) by mouth every 6 (six) hours if needed for mild pain. 01/24/23 Mark Levine MD methocarbamol (Robaxin) 500 MG tablet Take 1 tablet (500 mg) by mouth 3 (three) times a day if needed for muscle spasms. Patient not taking: Reported on 04/26/2023 10/02/22 Jaden Correa MD ondansetron (Zofran) 4 MG tablet Take 1 tablet (4 mg) by mouth every 8 (eight) hours if needed for nausea or vomiting. 01/26/23 Rodo Robles MD ondansetron ODT (Zofran-ODT) 4 MG disintegrating tablet DISSOLVE 1 TABLET IN MOUTH EVERY 6 HOURS ASNEEDED FOR 7 DAYS 12/31/22 Jaden Correa MD oxyCODONE-acetaminophen (Percocet) 5-325 MG tablet Take 1 tablet by mouth every 6 (six) hours if needed for severe pain. 01/24/23 Mark Levine MD predniSONE (Deltasone) 20 MG tablet 1 (one) time each day at the same time. Patient not taking: Reported on 04/26/2023 02/08/23 Jaden Correa MD primidone (Mysoline) 50 MG tablet every 12 (twelve) hours. Jaden Correa MD propranolol (Inderal) 20 MG tablet Take 1 tablet (20 mg) by mouth 2 (two) times a day. 01/17/23 Jaden Correa MD Social History: Pt has reports that she has been smoking cigarettes. She has never used smokeless tobacco. She reports that she does not currently use alcohol. She reports that she does not currently use drugs. (details as available below) Social History Substance and Sexual Activity Alcohol Use Not Currently Social History Substance and Sexual Activity Drug Use Not Currently Tobacco Use History[2] Reviewed and otherwise non-contributory. Family History: Family History[3] Reviewed and otherwise non-contributory. Allergies: Allergies Allergen Reactions Latex Other - please document in the comment field Oxycodone Nausea GCS: 15 Review of Systems Constitutional: Negative. HENT: Negative. Eyes: Negative. Respiratory: Negative. Cardiovascular: Negative. Gastrointestinal: Negative. Endocrine: Negative. Genitourinary: Negative. Musculoskeletal: Negative. Skin: Negative. Allergic/Immunologic: Negative. Neurological: Negative. Hematological: Negative. Psychiatric/Behavioral: Negative. 14 point ROS reviewed and otherwise negative or unobtainable except as noted above or in HPI. Vital signs: There were no vitals filed for this visit. Physical Exam: Physical Exam Vitals and nursing note reviewed. Constitutional: Appearance: Normal appearance. HENT: Head: Normocephalic. Right Ear: External ear normal. Left Ear: External ear normal. Nose: Nose normal. Mouth/Throat: Mouth: Mucous membranes are moist. Eyes: Extraocular Movements: Extraocular movements intact. Pupils: Pupils are equal, round, and reactive to light. Cardiovascular: Rate and Rhythm: Normal rate and regular rhythm. Pulses: Normal pulses. Heart sounds: Normal heart sounds. Pulmonary: Effort: Pulmonary effort is normal. Breath sounds: Normal breath sounds. Comments: RA Abdominal: General: Bowel sounds are normal. Palpations: Abdomen is soft. Genitourinary: Comments: Voids spontaneously Musculoskeletal: General: Normal range of motion. Cervical back: Normal range of motion. Skin: General: Skin is warm and dry. Capillary Refill: Capillary refill takes 2 to 3 seconds. Neurological: General: No focal deficit present. Mental Status: She is alert and oriented to person, place, and time. Comments: GCS 15 Psychiatric: Mood and Affect: Mood normal. Behavior: Behavior normal. Labs in last 18 hours: CBC WBC ?? Hb ?? Plt ?? Hct ?? ANC ?? INR ??, PTT ??, Anti-Xa ?? BMP Na ?? Cl ?? BUN ?? Glu ?? K ?? Co2 ?? Cr ?? Ca ?? iCa ?? Mg ??, Phos ?? Lactate ?? LFT AST ?? AlkPhos ?? T Prot ?? ALK ?? Bili ?? Alb ?? D.Bili ?? 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 consulted CABG work-up pending Anxiety and depression Yes Overview Signed 05/01/2024 11:34 PM by Marylu Carvajal APRN, DNP Continue home bupropion XL 300 mg daily Continue home citalopram 40 mg daily Continue PRN hydroxyzine 25 mg q6 COPD (chronic obstructive pulmonary disease) ([facility]) Yes Overview Addendum 05/01/2024 11:32 PM by Marylu Carvajal APRN, DNP Continue Duo nebs q6 SPO2 goal >88% Tobacco use Yes Overview Signed 05/01/2024 8:37 PM by Marylu Carvajal APRN, DNP 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 Complicates all aspects of care and recovery NSTEMI (non-ST elevated myocardial infarction) ([facility]) Yes Overview Addendum 05/01/2024 8:41 PM by Marylu Carvajal APRN, DNP Diagnosed at OSH with elevated troponins of 0.05 to 0.23 to 0.16 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, 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 Repeat troponins pending GERD (gastroesophageal reflux disease) Yes Overview Signed 05/01/2024 11:32 PM by Marylu Carvajal APRN, DNP Continue Protonix 40 mg daily Tremor Yes Overview Signed 05/01/2024 11:31 PM by Marylu Carvajal APRN, DNP Continue home primidone 50 mg BID HTN (hypertension) Yes Overview Signed 05/01/2024 11:35 PM by Marylu Carvajal APRN, DNP Continue home metoprolol succinate 25 mg daily Continue home propranolol 20 mg BID Feeding: Adult diet Diet texture: Regular; Fat restriction: Cardiac Analgesia: None Sedation: None Thromboembolic prophylaxis: Last Anticoag Admin Orders not given: heparin 25,000 units/250 mL (100 unit/mL) infusion - Adult ACS/MS Protocol heparin (porcine) - COM Adult ACS/MS Protocol - MAR Re-bolus Calculator injection 0-3,700 Units Head of bed: >30 Mobility Orders: Mobility Protocol: General - Mobility Guidelines Extremity Precautions: No Extremity Precautions Other mobility precautions: No other precautions required Ulcer prophylaxis & GI Meds: pantoprazole - 40 MG Glucose control: None Spontaneous breathing trials: N/A Bowel regimen (see GI meds above) Invasive lines: Patient Lines/Drains/Airways Status Active Active LDAs None De-escalation: Progressive care Plan: - Consulted CT Surgery - Continue Heparin drip - Loaded with Plavix & ASA at OSH - CABG work-up ordered - Appropriate home medications ordered Marylu Carvajal APRN, DNP [1] Past Surgical History: Procedure Laterality Date ABDOMINAL ADHESION SURGERY SECTION, CLASSIC CHOLECYSTECTOMY HAND SURGERY Right Tendon repair SHOULDER SURGERY [2] Social History Tobacco Use Smoking Status Every Day Current packs/day: 0.50 Types: Cigarettes Smokeless Tobacco Never [3] No family history on file. * Hospital Course - Stefany Edwards APRN - 05/01/2024 8:30 PM EDT Rere Hunter is a 53 yo female with a PMH of CAD, HTN, COPD, GERD, tremor, anxiety, depression, and tobacco use who presented to [facility] on 05/01/24 c/o chest pain. Loaded with ASA and Plavix. LHC at OSH performed today showed critical distal left main artery stenosis. Also diagnosed with NSTEMI at OSH with elevated troponins of 0.05 to 0.23 to 0.16. Placed on a heparin drip prior to arrival. Transferred to [facility] on 05/01/24 for CABG evaluation by [facility] Surgery. Upon arrival to the STAR unit, the patient is a GCS of 15, on room air, and hemodynamically stable. CT Surgery notified of patient's arrival. CABG work-up and appropriate home medications were ordered. Follow up with [facility] clinic with Dr. Mancuso in 2 weeks after discharge Follow up with Colorectal clinic with Dr. Troncoso 4-6 weeks after discharge documented in this encounter Plan of Treatment Upcoming Encounters Date Type Department Care Team (Late st Contact Info) Description 07/31/2024 9:00 AM EDT Office Visit [facility] [address] [place] [address] Lidia Troncoso MD [address] [place] [address] Pending Results Name Type Priority Associated Diagnoses Date /Time Prepare Leukocyte Reduced RBC: 2 Units Blood Bank STAT 05/06/2024 6:41 PM EDT Scheduled Referrals Name Type Priority Associated Diagnoses Order Schedule Discharge Ambulatory referral to Cardiac Rehab Outpatient Referral Routine CAD, multiple vessel 1 Occurrences starting 05/06/2024 until 11/06/2025 Discharge Ambulatory referral to [facility] Outpatient Referral Routine Abdominal fluid collection Expected: 06/18/2024, Expires: 12/04/2025 Discharge Ambulatory referral to NON [facility] Outpatient Referral Routine S/P CABG x 4 Expected: 06/16/2024 (Approximate), Expires: 12/16/2025 Discharge Ambulatory referral to NON [facility] Outpatient Referral Routine S/P CABG x 4 1 Occurrences starting 06/19/2024 until 12/20/2025 Discharge Ambulatory referral to Colorectal Surgery Outpatient Referral Routine S/P colon resection Expected: 07/22/2024 (Approximate), Expires: 12/22/2025 Discharge Ambulatory referral to Cardiac Rehab Outpatient Referral Routine S/P CABG x 4 1 Occurrences starting 06/21/2024 until 06/21/2025 documented as of this encounter Goals Goal Patient Goal Type Associated Problems Recent Progress Patient-Stated? Author Patient will verbalize understanding of orthotic wear , care and precautions to protect surgical repair for additional 4 weeks. Occupational Therapy No Jd Sabillon Patient will demonstrate correct performance of HEP to increase IP motion within 1 therapy visit. Occupational Therapy No RamandeepJd Van documented as of this encounter Procedures Procedure Name Priority Date/Time Associated Diagnosis Comments XR CHEST 1 VIEW Routine 06/21/2024 4:36 AM EDT XR ABDOMEN 1 VIEW Routine 06/21/2024 4:3 6 AM EDT CBC W/O DIFFERENTIAL Routine 06/21/2024 2:59 AM EDT MAGNESIUM, PLASMA Routine 06/21/2024 2:5 9 AM EDT COMPREHENSIVE METABOLIC PANEL, PLASMA Routine 06/21/2024 2:59 AM EDT XR ABDOMEN 1 VIEW Routine 06/20/2024 5:3 0 AM EDT N-TERMINAL PROBNP, PLASMA Routine 06/20/2024 4:45 AM EDT CBC W/O DIFFERENTIAL Routine 06/20/2024 4:45 AM EDT MAGNESIUM, PLASMA Routine 06/20/2024 4:4 5 AM EDT COMPREHENSIVE METABOLIC PANEL, PLASMA Routine 06/20/2024 4:45 AM EDT N-TERMINAL PROBNP, PLASMA Add-On 06/19/2024 5:13 AM EDT CBC W/O DIFFERENTIAL Routine 06/19/2024 5:13 AM EDT MAGNESIUM, PLASMA Routine 06/19/2024 5:1 3 AM EDT COMPREHENSIVE METABOLIC PANEL, PLASMA Routine 06/19/2024 5:13 AM EDT XR ABDOMEN 1 VIEW Routine 06/19/2024 5:0 8 AM EDT XR CHEST 1 VIEW Routine 06/18/2024 4:43 AM EDT XR ABDOMEN 1 VIEW Routine 06/18/2024 4:4 3 AM EDT CBC W/O DIFFERENTIAL Routine 06/18/2024 2:32 AM EDT MAGNESIUM, PLASMA Routine 06/18/2024 2:3 2 AM EDT COMPREHENSIVE METABOLIC PANEL, PLASMA Routine 06/18/2024 2:32 AM EDT POCT GLUCOSE METER UNSOLICITED RESULTS Routine 06/17/2024 8:09 PM EDT POCT GLUCOSE METER UNSOLICITED RESULTS Routine 06/17/2024 4:51 PM EDT XR ABDOMEN 1 VIEW Routine 06/17/2024 2:5 2 PM EDT POCT GLUCOSE METER UNSOLICITED RESULTS Routine 06/17/2024 12:00 PM EDT POCT GLUCOSE METER UNSOLICITED RESULTS Routine 06/17/2024 7:48 AM EDT XR CHEST 1 VIEW Routine 06/17/2024 5:15 AM EDT CBC W/O DIFFERENTIAL Routine 06/17/2024 3:53 AM EDT MAGNESIUM, PLASMA Routine 06/17/2024 3:5 3 AM EDT COMPREHENSIVE METABOLIC PANEL, PLASMA Routine 06/17/2024 3:53 AM EDT SEND JOCELYNE MESSAGE Routine 06/16/2024 8: 21 PM EDT URINALYSIS WITH REFLEX MICROSCOPIC AND CULTURE Routine 06/16/2024 8:21 PM EDT URINE FRANCIS PANEL Routine 06/16/2024 8:21 PM EDT URINALYSIS MICROSCOPIC FOR UA REFLEX Routine 06/16/2024 8:21 PM EDT URINALYSIS WITH REFLEX MICROSCOPIC Routine 06/16/2024 8:21 PM EDT URINE CULTURE Routine 06/16/2024 8:21 PM EDT CBC W/O DIFFERENTIAL Routine 06/16/2024 4:07 AM EDT MAGNESIUM, PLASMA Routine 06/16/2024 4:0 7 AM EDT COMPREHENSIVE METABOLIC PANEL, PLASMA Routine 06/16/2024 4:07 AM EDT XR CHEST 1 VIEW Routine 06/15/2024 9:47 AM EDT XR HIP RIGHT 2 OR 3 VIEWS Routine 06/15/2024 9:47 AM EDT CBC W/O DIFFERENTIAL Routine 06/15/2024 4:49 AM EDT PREALBUMIN, PLASMA Add-On 06/15/2024 4: 49 AM EDT MAGNESIUM, PLASMA Routine 06/15/2024 4:4 9 AM EDT COMPREHENSIVE METABOLIC PANEL, PLASMA Routine 06/15/2024 4:[address] HEAD WO IV CONTRAST Routine 8:28 PM EDT CBC W/O DIFFERENTIAL Routine 06/14/2024 12:58 AM EDT MAGNESIUM, PLASMA Routine 06/14/2024 12:58 AM EDT BLOOD GAS PANEL, VENOUS Routine 06/14/2024 12:58 AM EDT COMPREHENSIVE METABOLIC PANEL, PLASMA Routine 06/14/2024 12:58 AM EDT WOUND VAC DRESSING CHANGES (NON-INSTILLATION) Routine 06/13/2024 12:52 PM EDT CBC W/O DIFFERENTIAL Routine 06/13/2024 12:40 AM EDT COMPREHENSIVE METABOLIC PANEL, PLASMA Routine 06/13/2024 12:40 AM EDT CBC WITH AUTO DIFFERENTIAL Routine 06/12/2024 3:24 AM EDT COMPREHENSIVE METABOLIC PANEL, PLASMA Routine 06/12/2024 3:24 AM EDT XR ABDOMEN 1 VIEW Routine 06/11/2024 8:3 4 AM EDT XR CHEST 1 VIEW Routine 06/11/2024 8:34 AM EDT WBC DIFFERENTIAL Add-On 06/11/2024 4:32 AM EDT EXTRA TUBE LAVENDER TOP Routine 06/11/2024 4:32 AM EDT EXTRA TUBE LIGHT GREEN TOP Routine 06/11/2024 4:32 AM EDT EXTRA TUBES Routine 06/11/2024 4:32 AM EDT PROCALCITONIN, PLASMA Add-On 06/11/2024 4:32 AM EDT POCT GLUCOSE METER UNSOLICITED RESULTS Routine 06/10/2024 5:56 AM EDT POCT GLUCOSE METER UNSOLICITED RESULTS Routine 06/10/2024 5:09 AM EDT CBC W/O DIFFERENTIAL Routine 06/10/2024 4:28 AM EDT MAGNESIUM, PLASMA Routine 06/10/2024 4:2 8 AM EDT COMPREHENSIVE METABOLIC PANEL, PLASMA Routine 06/10/2024 4:28 AM EDT POCT GLUCOSE METER UNSOLICITED RESULTS Routine 06/09/2024 5:22 PM EDT POCT GLUCOSE METER UNSOLICITED RESULTS Routine 06/09/2024 12:19 PM EDT XR CHEST 1 VIEW Routine 06/09/2024 6:54 AM EDT POCT GLUCOSE METER UNSOLICITED RESULTS Routine 06/09/2024 6:33 AM EDT CBC W/O DIFFERENTIAL Routine 06/09/2024 1:27 AM EDT MAGNESIUM, PLASMA Routine 06/09/2024 1:2 7 AM EDT BASIC METABOLIC PANEL, PLASMA Routine 06/09/2024 1:27 AM EDT POCT GLUCOSE METER UNSOLICITED RESULTS Routine 06/08/2024 11:28 PM EDT POCT GLUCOSE METER UNSOLICITED RESULTS Routine 06/08/2024 12:14 PM EDT CBC W/O DIFFERENTIAL Routine 06/08/2024 5:44 AM EDT MAGNESIUM, PLASMA Routine 06/08/2024 5:4 4 AM EDT BASIC METABOLIC PANEL, PLASMA Routine 06/08/2024 5:44 AM EDT XR ABDOMEN 1 VIEW Routine 06/08/2024 5:3 1 AM EDT POCT GLUCOSE METER UNSOLICITED RESULTS Routine 06/07/2024 5:13 PM EDT POCT GLUCOSE METER UNSOLICITED RESULTS Routine 06/07/2024 2:55 PM EDT CBC WITH AUTO DIFFERENTIAL Routine 06/07/2024 6:22 AM EDT MAGNESIUM, PLASMA Routine 06/07/2024 6:2 2 AM EDT BASIC METABOLIC PANEL, PLASMA Routine 06/07/2024 6:22 AM EDT OXYGEN THERAPY Routine 06/06/2024 8:00 PM EDT POCT GLUCOSE METER UNSOLICITED RESULTS Routine 06/06/2024 6:25 PM EDT POCT GLUCOSE METER UNSOLICITED RESULTS Routine 06/06/2024 11:20 AM EDT OXYGEN THERAPY Routine 06/06/2024 8:00 AM EDT POCT GLUCOSE METER UNSOLICITED RESULTS Routine 06/06/2024 5:49 AM EDT N-TERMINAL PROBNP, PLASMA Routine 06/06/2024 4:03 AM EDT CBC W/O DIFFERENTIAL Routine 06/06/2024 4:03 AM EDT MAGNESIUM, PLASMA Routine 06/06/2024 4:0 3 AM EDT BASIC METABOLIC PANEL, PLASMA Routine 06/06/2024 4:03 AM EDT POCT GLUCOSE METER UNSOLICITED RESULTS Routine 06/05/2024 11:52 PM EDT OXYGEN THERAPY Routine 06/05/2024 8:00 PM EDT XR ABDOMEN 1 VIEW Routine 06/05/2024 4:1 2 PM EDT POCT GLUCOSE METER UNSOLICITED RESULTS Routine 06/05/2024 11:59 AM EDT OXYGEN THERAPY Routine 06/05/2024 8:00 AM EDT N-TERMINAL PROBNP, PLASMA Add-On 06/05/2024 6:12 AM EDT CBC W/O DIFFERENTIAL Routine 06/05/2024 6:12 AM EDT MAGNESIUM, PLASMA Routine 06/05/2024 6:1 2 AM EDT BASIC METABOLIC PANEL, PLASMA Routine 06/05/2024 6:12 AM EDT POCT GLUCOSE METER UNSOLICITED RESULTS Routine 06/05/2024 6:05 AM EDT POCT GLUCOSE METER UNSOLICITED RESULTS Routine 06/05/2024 12:01 AM EDT OXYGEN THERAPY Routine 06/04/2024 8:00 PM EDT POCT GLUCOSE METER UNSOLICITED RESULTS Routine 06/04/2024 5:42 PM EDT POCT GLUCOSE METER UNSOLICITED RESULTS Routine 06/04/2024 12:56 PM EDT BODY FLUID CELL COUNT W/ MANUAL DIFFERENTIAL Routine 06/04/2024 10:17 AM EDT AFB CULTURE, NON RESPIRATORY SOURCE AND ACID FAST STAIN Routine 06/04/2024 10:17 AM EDT BODY FLUID CULTURE AND GRAM STAIN Routine 06/04/2024 10:[address] GUIDED DRAIN PLACEMENT PERITONEAL OR RETROPERITONEAL Routine 06/04/2024 10:16 AM EDT OXYGEN THERAPY Routine 06/04/2024 8:00 AM EDT CBC W/O DIFFERENTIAL Routine 06/04/2024 5:56 AM EDT MAGNESIUM, PLASMA Routine 06/04/2024 5:5 6 AM EDT BASIC METABOLIC PANEL, PLASMA Routine 06/04/2024 5:56 AM EDT POCT GLUCOSE METER UNSOLICITED RESULTS Routine 06/03/2024 11:08 PM EDT OXYGEN THERAPY Routine 06/03/2024 8:00 PM EDT POCT GLUCOSE METER UNSOLICITED RESULTS Routine 06/03/2024 5:04 PM EDT POCT GLUCOSE METER UNSOLICITED RESULTS Routine 06/03/2024 11:48 AM EDT OXYGEN THERAPY Routine 06/03/2024 8:00 AM EDT POCT GLUCOSE METER UNSOLICITED RESULTS Routine 06/03/2024 7:54 AM EDT CBC W/O DIFFERENTIAL Routine 06/03/2024 1:08 AM EDT PREALBUMIN, PLASMA Routine 06/03/2024 1: 08 AM EDT MAGNESIUM, PLASMA Routine 06/03/2024 1:0 8 AM EDT BASIC METABOLIC PANEL, PLASMA Routine 06/03/2024 1:08 AM EDT OXYGEN THERAPY Routine 06/02/2024 8:00 PM EDT POCT GLUCOSE METER UNSOLICITED RESULTS Routine 06/02/2024 5:54 PM EDT POCT GLUCOSE METER UNSOLICITED RESULTS Routine 06/02/2024 12:39 PM EDT OXYGEN THERAPY Routine 06/02/2024 8:00 AM EDT BASIC METABOLIC PANEL, PLASMA Routine 06/02/2024 7:08 AM EDT CBC WITH AUTO DIFFERENTIAL Routine 06/02/2024 1:02 AM EDT MAGNESIUM, PLASMA Routine 06/02/2024 1:0 2 AM EDT RENAL FUNCTION PANEL, PLASMA Routine 06/02/2024 1:02 AM EDT POCT GLUCOSE METER UNSOLICITED RESULTS Routine 06/01/2024 11:06 PM EDT OXYGEN THERAPY Routine 06/01/2024 8:[address] ABDOMEN PELVIS W IV CONTRAST STAT 06/01/2024 4:16 PM EDT POCT GLUCOSE METER UNSOLICITED RESULTS Routine 06/01/2024 11:48 AM EDT LACTATE, VENOUS Routine 06/01/2024 8:42 AM EDT PROCALCITONIN, PLASMA Routine 06/01/2024 8:42 AM EDT OXYGEN THERAPY Routine 06/01/2024 8:00 AM EDT POCT GLUCOSE METER UNSOLICITED RESULTS Routine 06/01/2024 6:42 AM EDT CBC WITH AUTO DIFFERENTIAL Routine 06/01/2024 1:20 AM EDT MAGNESIUM, PLASMA Routine 06/01/2024 1:2 0 AM EDT RENAL FUNCTION PANEL, PLASMA Routine 06/01/2024 1:20 AM EDT POCT GLUCOSE METER UNSOLICITED RESULTS Routine 06/01/2024 12:21 AM EDT OXYGEN THERAPY Routine 05/31/2024 8:00 PM EDT POCT GLUCOSE METER UNSOLICITED RESULTS Routine 05/31/2024 6:17 PM EDT POCT GLUCOSE METER UNSOLICITED RESULTS Routine 05/31/2024 11:15 AM EDT OXYGEN THERAPY Routine 05/31/2024 8:00 AM EDT XR CHEST 1 VIEW Routine 05/31/2024 4:32 AM EDT N-TERMINAL PROBNP, PLASMA Routine 05/31/2024 2:50 AM EDT CBC WITH AUTO DIFFERENTIAL Routine 05/31/2024 2:50 AM EDT MAGNESIUM, PLASMA Routine 05/31/2024 2:5 0 AM EDT RENAL FUNCTION PANEL, PLASMA Routine 05/31/2024 2:50 AM EDT OXYGEN THERAPY Routine 05/30/2024 8:00 PM EDT WA NEGATIVE PRESSURE WOUND THERAPY DME >50 SQ CM Routine 05/30/2024 3:08 PM EDT Colon perforation (CMS/HCC) OXYGEN THERAPY Routine 05/30/2024 8:00 AM EDT N-TERMINAL PROBNP, PLASMA Add-On 05/30/2024 5:13 AM EDT CBC WITH AUTO DIFFERENTIAL Routine 05/30/2024 5:13 AM EDT MAGNESIUM, PLASMA Routine 05/30/2024 5:1 3 AM EDT RENAL FUNCTION PANEL, PLASMA Routine 05/30/2024 5:13 AM EDT XR CHEST 1 VIEW Routine 05/30/2024 3:11 AM EDT PEP THERAPY Routine 05/30/2024 12:00 AM EDT OXYGEN THERAPY Routine 05/29/2024 8:00 PM EDT PEP THERAPY Routine 05/29/2024 8:00 PM EDT PEP THERAPY Routine 05/29/2024 4:00 PM EDT PEP THERAPY Routine 05/29/2024 12:00 PM EDT PEP THERAPY Routine 05/29/2024 9:00 AM EDT OXYGEN THERAPY Routine 05/29/2024 8:00 AM EDT PEP THERAPY Routine 05/29/2024 7:28 AM EDT PEP THERAPY Routine 05/29/2024 7:28 AM EDT PEP THERAPY Routine 05/29/2024 7:28 AM EDT PEP THERAPY Routine 05/29/2024 7:28 AM EDT PEP THERAPY Routine 05/29/2024 7:28 AM EDT PHOSPHORUS, PLASMA STAT 05/29/2024 7: 00 AM EDT BASIC METABOLIC PANEL, PLASMA STAT 05/29/2024 7:00 AM EDT POCT GLUCOSE METER UNSOLICITED RESULTS Routine 05/29/2024 6:51 AM EDT MORPHOLOGY Routine 05/29/2024 5:35 AM EDT MANUAL DIFFERENTIAL Routine 05/29/2024 5 :35 AM EDT CBC WITH AUTO DIFFERENTIAL Routine 05/29/2024 5:35 AM EDT MAGNESIUM, PLASMA Routine 05/29/2024 5:3 5 AM EDT RENAL FUNCTION PANEL, PLASMA Routine 05/29/2024 5:35 AM EDT XR CHEST 1 VIEW Routine 05/29/2024 2:20 AM EDT OXYGEN THERAPY Routine 05/28/2024 8:00 PM EDT WA NEGATIVE PRESSURE WOUND THERAPY DME >50 SQ CM Routine 05/28/2024 6:10 PM EDT Colon perforation (CMS/HCC) [place] CRITICAL C[facility], ADDL 30 MIN Routine 05/28/2024 11:39 AM EDT CAD, multiple vessel S/P CABG x 4 OXYGEN THERAPY Routine 05/28/2024 8:00 AM EDT PEP THERAPY Routine 05/28/2024 6:00 AM EDT XR CHEST 1 VIEW Routine 05/28/2024 2:04 AM EDT MORPHOLOGY Routine 05/28/2024 12:47 AM EDT MANUAL DIFFERENTIAL Routine 05/28/2024 12:47 AM EDT CBC WITH AUTO DIFFERENTIAL Routine 05/28/2024 12:47 AM EDT MAGNESIUM, PLASMA Routine 05/28/2024 12:47 AM EDT RENAL FUNCTION PANEL, PLASMA Routine 05/28/2024 12:47 AM EDT PEP THERAPY Routine 05/27/2024 10:00 PM EDT XR ABDOMEN 1 VIEW STAT 05/27/2024 9:4 5 PM EDT OXYGEN THERAPY Routine 05/27/2024 8:00 PM EDT POCT GLUCOSE METER UNSOLICITED RESULTS Routine 05/27/2024 6:52 PM EDT PEP THERAPY Routine 05/27/2024 6:00 PM EDT PEP THERAPY Routine 05/27/2024 2:00 PM EDT [facility], E/M 30-74 MINUTES Routine 05/27/2024 11:12 AM EDT Colon perforation (CMS/HCC) PEP THERAPY Routine 05/27/2024 10:00 AM EDT OXYGEN THERAPY Routine 05/27/2024 8:00 AM EDT PEP THERAPY Routine 05/27/2024 6:00 AM EDT MORPHOLOGY Routine 05/27/2024 4:54 AM EDT MANUAL DIFFERENTIAL Routine 05/27/2024 4 :54 AM EDT CBC WITH AUTO DIFFERENTIAL Routine 05/27/2024 4:54 AM EDT MAGNESIUM, PLASMA Routine 05/27/2024 4:5 4 AM EDT RENAL FUNCTION PANEL, PLASMA Routine 05/27/2024 4:54 AM EDT XR CHEST 1 VIEW Routine 05/27/2024 2:37 AM EDT PEP THERAPY Routine 05/26/2024 10:00 PM EDT OXYGEN THERAPY Routine 05/26/2024 8:00 PM EDT POCT GLUCOSE METER UNSOLICITED RESULTS Routine 05/26/2024 6:18 PM EDT PEP THERAPY Routine 05/26/2024 6:00 PM EDT XR CHEST 1 VIEW Routine 05/26/2024 4:30 PM EDT TRANSFUSE RED BLOOD CELLS Routine 05/26/2024 4:16 PM EDT [facility], ADDL 30 MIN Routine 05/26/2024 3:17 PM EDT S/P CABG x 4 TYPE AND SCREEN Routine 05/26/2024 3:12 PM EDT PREPARE RBC Routine 05/26/2024 2:21 PM EDT PEP THERAPY Routine 05/26/2024 2:00 PM EDT POCT GLUCOSE METER UNSOLICITED RESULTS Routine 05/26/2024 12:19 PM EDT PEP THERAPY Routine 05/26/2024 10:00 AM EDT OXYGEN THERAPY Routine 05/26/2024 8:00 AM EDT PEP THERAPY Routine 05/26/2024 6:00 AM EDT MORPHOLOGY Routine 05/26/2024 3:27 AM EDT MANUAL DIFFERENTIAL Routine 05/26/2024 3 :27 AM EDT CBC WITH AUTO DIFFERENTIAL Routine 05/26/2024 3:27 AM EDT MAGNESIUM, PLASMA Routine 05/26/2024 3:2 7 AM EDT RENAL FUNCTION PANEL, PLASMA Routine 05/26/2024 3:27 AM EDT XR CHEST 1 VIEW Routine 05/26/2024 2:09 AM EDT PEP THERAPY Routine 05/25/2024 10:00 PM EDT HEMOGLOBIN AND HEMATOCRIT, BLOOD Routine 05/25/2024 8:32 PM EDT OXYGEN THERAPY Routine 05/25/2024 8:00 PM EDT POCT GLUCOSE METER UNSOLICITED RESULTS Routine 05/25/2024 6:17 PM EDT PEP THERAPY Routine 05/25/2024 6:00 PM EDT PEP THERAPY Routine 05/25/2024 2:00 PM EDT HEMOGLOBIN AND HEMATOCRIT, BLOOD Routine 05/25/2024 1:55 PM EDT PEP THERAPY Routine 05/25/2024 10:00 AM EDT CBC W/O DIFFERENTIAL Routine 05/25/2024 8:11 AM EDT OXYGEN THERAPY Routine 05/25/2024 8:00 AM EDT POCT GLUCOSE METER UNSOLICITED RESULTS Routine 05/25/2024 6:26 AM EDT PEP THERAPY Routine 05/25/2024 6:00 AM EDT XR CHEST 1 VIEW Routine 05/25/2024 3:07 AM EDT MORPHOLOGY Routine 05/25/2024 2:45 AM EDT MANUAL DIFFERENTIAL Routine 05/25/2024 2 :45 AM EDT CBC WITH AUTO DIFFERENTIAL Routine 05/25/2024 2:45 AM EDT MAGNESIUM, PLASMA Routine 05/25/2024 2:4 5 AM EDT RENAL FUNCTION PANEL, PLASMA Routine 05/25/2024 2:45 AM EDT PEP THERAPY Routine 05/24/2024 10:00 PM EDT OXYGEN THERAPY Routine 05/24/2024 8:00 PM EDT PEP THERAPY Routine 05/24/2024 6:00 PM EDT PEP THERAPY Routine 05/24/2024 2:00 PM EDT [facility], E/M 30-74 MINUTES Routine 05/24/2024 11:04 AM EDT S/P CABG x 4 MORPHOLOGY Routine 05/24/2024 10:18 AM EDT MANUAL DIFFERENTIAL Routine 05/24/2024 10:18 AM EDT CBC WITH AUTO DIFFERENTIAL Routine 05/24/2024 10:18 AM EDT MAGNESIUM, PLASMA Routine 05/24/2024 10:18 AM EDT BASIC METABOLIC PANEL, PLASMA Routine 05/24/2024 10:18 AM EDT PEP THERAPY Routine 05/24/2024 10:00 AM EDT XR CHEST 1 VIEW Routine 05/24/2024 8:51 AM EDT OXYGEN THERAPY Routine 05/24/2024 8:00 AM EDT POCT GLUCOSE METER UNSOLICITED RESULTS Routine 05/24/2024 6:09 AM EDT PEP THERAPY Routine 05/24/2024 6:00 AM EDT PEP THERAPY Routine 05/23/2024 10:00 PM EDT OXYGEN THERAPY Routine 05/23/2024 8:00 PM EDT BLOOD GAS PANEL, ARTERIAL STAT 05/23/2024 7:54 PM EDT MORPHOLOGY Routine 05/23/2024 7:39 PM EDT MANUAL DIFFERENTIAL Routine 05/23/2024 7 :39 PM EDT CBC WITH AUTO DIFFERENTIAL Routine 05/23/2024 7:39 PM EDT MAGNESIUM, PLASMA Timed 05/23/2024 7:3 9 PM EDT RENAL FUNCTION PANEL, PLASMA Timed 05/23/2024 7:39 PM EDT COMPREHENSIVE METABOLIC PANEL, PLASMA Routine 05/23/2024 7:39 PM EDT PEP THERAPY Routine 05/23/2024 6:00 PM EDT SURGICAL PATHOLOGY EXAM Routine 05/23/2024 4:09 PM EDT Colon perforation (CMS/HCC) TRANSFUSE RED BLOOD CELLS Routine 05/23/2024 3:45 PM EDT BLOOD GAS PANEL, ARTERIAL STAT 05/23/2024 2:14 PM EDT PREPARE RBC Routine 05/23/2024 2:04 PM EDT PEP THERAPY Routine 05/23/2024 2:00 PM EDT WA PART REMOVAL COLON W ANASTOMOSIS 05/23/2024 1:16 PM EDT Colon perforation (CMS/HCC) [facility] EXPLORATORY OF ABDOMEN 05/23/2024 1:16 PM EDT Colon perforation (CMS/HCC) MAGNESIUM, PLASMA Timed 05/23/2024 1:0 0 PM EDT RENAL FUNCTION PANEL, PLASMA Timed 05/23/2024 1:00 PM EDT PROTHROMBIN TIME(PT) / INR Routine 05/23/2024 12:41 PM EDT IONIZED CALCIUM, WHOLE BLOOD Timed 05/23/2024 11:40 AM EDT BLOOD CULTURE (AEROBIC/ANAEROBIC SET) Routine 05/23/2024 10:20 AM EDT PEP THERAPY Routine 05/23/2024 10:00 AM EDT OXYGEN THERAPY Routine 05/23/2024 8:00 AM EDT HEMOGLOBIN AND HEMATOCRIT, BLOOD Routine 05/23/2024 6:20 AM EDT PEP THERAPY Routine 05/23/2024 6:00 AM EDT IONIZED CALCIUM, WHOLE BLOOD Timed 05/23/2024 5:40 AM EDT HEMOGLOBIN AND HEMATOCRIT, BLOOD Routine 05/23/2024 5:40 AM EDT MAGNESIUM, PLASMA Timed 05/23/2024 5:4 0 AM EDT RENAL FUNCTION PANEL, PLASMA Timed 05/23/2024 5:40 AM EDT XR CHEST 1 VIEW Routine 05/23/2024 2:[address] ABDOMEN PELVIS W IV CONTRAST Routine 05/23/2024 1:56 AM EDT MORPHOLOGY Routine 05/23/2024 1:15 AM EDT IONIZED CALCIUM, WHOLE BLOOD Timed 05/23/2024 1:15 AM EDT MANUAL DIFFERENTIAL Routine 05/23/2024 1 :15 AM EDT CBC WITH AUTO DIFFERENTIAL Routine 05/23/2024 1:15 AM EDT MAGNESIUM, PLASMA Timed 05/23/2024 1:1 5 AM EDT RENAL FUNCTION PANEL, PLASMA Timed 05/23/2024 1:15 AM EDT COMPREHENSIVE METABOLIC PANEL, PLASMA Routine 05/23/2024 1:15 AM EDT ECG ADULT STAT 05/23/2024 12:57 AM EDT PEP THERAPY Routine 05/22/2024 10:00 PM EDT OXYGEN THERAPY Routine 05/22/2024 8:00 PM EDT IONIZED CALCIUM, WHOLE BLOOD Timed 05/22/2024 6:50 PM EDT MAGNESIUM, PLASMA Timed 05/22/2024 6:5 0 PM EDT RENAL FUNCTION PANEL, PLASMA Timed 05/22/2024 6:50 PM EDT PEP THERAPY Routine 05/22/2024 6:[address] ABDOMEN PELVIS WO IV CONTRAST Routine 05/22/2024 5:41 PM EDT PEP THERAPY Routine 05/22/2024 2:00 PM EDT IONIZED CALCIUM, WHOLE BLOOD Timed 05/22/2024 11:32 AM EDT MAGNESIUM, PLASMA Timed 05/22/2024 11:32 AM EDT RENAL FUNCTION PANEL, PLASMA Timed 05/22/2024 11:32 AM EDT PEP THERAPY Routine 05/22/2024 10:00 AM EDT OXYGEN THERAPY Routine 05/22/2024 8:00 AM EDT TYPE AND SCREEN Routine 05/22/2024 6:18 AM EDT MORPHOLOGY STAT 05/22/2024 6:13 AM EDT IONIZED CALCIUM, WHOLE BLOOD Routine 05/22/2024 6:13 AM EDT MANUAL DIFFERENTIAL STAT 05/22/2024 6:13 AM EDT CBC WITH AUTO DIFFERENTIAL STAT 05/22/2024 6:13 AM EDT COMPREHENSIVE METABOLIC PANEL, PLASMA STAT 05/22/2024 6:13 AM EDT PEP THERAPY Routine 05/22/2024 6:00 AM EDT MORPHOLOGY Routine 05/22/2024 5:18 AM EDT IONIZED CALCIUM, WHOLE BLOOD Timed 05/22/2024 5:18 AM EDT MANUAL DIFFERENTIAL Routine 05/22/2024 5 :18 AM EDT CBC WITH AUTO DIFFERENTIAL Routine 05/22/2024 5:18 AM EDT XR CHEST 1 VIEW Routine 05/22/2024 3:44 AM EDT IONIZED CALCIUM, WHOLE BLOOD Timed 05/22/2024 12:01 AM EDT MAGNESIUM, PLASMA Timed 05/22/2024 12:01 AM EDT RENAL FUNCTION PANEL, PLASMA Timed 05/22/2024 12:01 AM EDT PEP THERAPY Routine 05/21/2024 10:00 PM EDT OXYGEN THERAPY Routine 05/21/2024 8:00 PM EDT PEP THERAPY Routine 05/21/2024 6:00 PM EDT IONIZED CALCIUM, WHOLE BLOOD Timed 05/21/2024 6:00 PM EDT MAGNESIUM, PLASMA Timed 05/21/2024 6:0 0 PM EDT RENAL FUNCTION PANEL, PLASMA Timed 05/21/2024 6:00 PM EDT PEP THERAPY Routine 05/21/2024 2:00 PM EDT IONIZED CALCIUM, WHOLE BLOOD Timed 05/21/2024 12:09 PM EDT MAGNESIUM, PLASMA Timed 05/21/2024 12:09 PM EDT RENAL FUNCTION PANEL, PLASMA Timed 05/21/2024 12:09 PM EDT [facility], E/M 30-74 MINUTES Routine 05/21/2024 11:41 AM EDT S/P CABG x 4 PEP THERAPY Routine 05/21/2024 10:00 AM EDT OXYGEN THERAPY Routine 05/21/2024 8:00 AM EDT POCT GLUCOSE METER UNSOLICITED RESULTS Routine 05/21/2024 6:01 AM EDT PEP THERAPY Routine 05/21/2024 6:00 AM EDT IONIZED CALCIUM, WHOLE BLOOD Timed 05/21/2024 5:56 AM EDT MAGNESIUM, PLASMA Timed 05/21/2024 5:5 6 AM EDT RENAL FUNCTION PANEL, PLASMA Timed 05/21/2024 5:56 AM EDT XR CHEST 1 VIEW Routine 05/21/2024 2:21 AM EDT IONIZED CALCIUM, WHOLE BLOOD Timed 05/21/2024 12:09 AM EDT MORPHOLOGY Routine 05/20/2024 11:48 PM EDT MANUAL DIFFERENTIAL Routine 05/20/2024 11:48 PM EDT CBC WITH AUTO DIFFERENTIAL Routine 05/20/2024 11:48 PM EDT MAGNESIUM, PLASMA Timed 05/20/2024 11:48 PM EDT RENAL FUNCTION PANEL, PLASMA Timed 05/20/2024 11:48 PM EDT COMPREHENSIVE METABOLIC PANEL, PLASMA Routine 05/20/2024 11:48 PM EDT POCT GLUCOSE METER UNSOLICITED RESULTS Routine 05/20/2024 11:47 PM EDT PEP THERAPY Routine 05/20/2024 10:00 PM EDT OXYGEN THERAPY Routine 05/20/2024 8:00 PM EDT POCT GLUCOSE METER UNSOLICITED RESULTS Routine 05/20/2024 6:35 PM EDT MAGNESIUM, PLASMA Routine 05/20/2024 6:3 5 PM EDT RENAL FUNCTION PANEL, PLASMA Routine 05/20/2024 6:35 PM EDT PEP THERAPY Routine 05/20/2024 6:00 PM EDT PEP THERAPY Routine 05/20/2024 2:00 PM EDT [facility], E/M 30-74 MINUTES Routine 05/20/2024 1:19 PM EDT S/P CABG x 4 POCT GLUCOSE METER UNSOLICITED RESULTS Routine 05/20/2024 12:39 PM EDT PEP THERAPY Routine 05/20/2024 10:00 AM EDT OXYGEN THERAPY Routine 05/20/2024 8:[address] ABDOMEN PELVIS WO IV CONTRAST Timed 05/20/2024 6:02 AM EDT PEP THERAPY Routine 05/20/2024 6:00 AM EDT BLOOD GAS PANEL, ARTERIAL Routine 05/20/2024 2:16 AM EDT CBC WITH AUTO DIFFERENTIAL Routine 05/20/2024 2:15 AM EDT PHOSPHORUS, PLASMA Add-On 05/20/2024 2: 15 AM EDT MAGNESIUM, PLASMA Routine 05/20/2024 2:1 5 AM EDT LIPASE, PLASMA Routine 05/20/2024 2:15 AM EDT COMPREHENSIVE METABOLIC PANEL, PLASMA Routine 05/20/2024 2:15 AM EDT XR CHEST 1 VIEW Routine 05/20/2024 1:23 AM EDT POCT GLUCOSE METER UNSOLICITED RESULTS Routine 05/19/2024 11:30 PM EDT PEP THERAPY Routine 05/19/2024 10:00 PM EDT OXYGEN THERAPY Routine 05/19/2024 8:00 PM EDT MAGNESIUM, PLASMA Routine 05/19/2024 6:3 2 PM EDT RENAL FUNCTION PANEL, PLASMA Routine 05/19/2024 6:32 PM EDT POCT GLUCOSE METER UNSOLICITED RESULTS Routine 05/19/2024 6:31 PM EDT PEP THERAPY Routine 05/19/2024 6:00 PM EDT [facility], E/M 30-74 MINUTES Routine 05/19/2024 2:52 PM EDT S/P CABG x 4 PEP THERAPY Routine 05/19/2024 2:00 PM EDT POCT GLUCOSE METER UNSOLICITED RESULTS Routine 05/19/2024 11:52 AM EDT TRIGLYCERIDES, PLASMA Add-On 05/19/2024 11:42 AM EDT MAGNESIUM, PLASMA Routine 05/19/2024 11:42 AM EDT RENAL FUNCTION PANEL, PLASMA Routine 05/19/2024 11:42 AM EDT PEP THERAPY Routine 05/19/2024 10:00 AM EDT OXYGEN THERAPY Routine 05/19/2024 8:00 AM EDT PEP THERAPY Routine 05/19/2024 6:00 AM EDT XR CHEST 1 VIEW Routine 05/19/2024 4:43 AM EDT XR ABDOMEN 1 VIEW Routine 05/19/2024 4:4 3 AM EDT [facility], ADDL 30 MIN Routine 05/19/2024 2:30 AM EDT S/P CABG x 4 CBC WITH AUTO DIFFERENTIAL Routine 05/19/2024 2:02 AM EDT MAGNESIUM, PLASMA Routine 05/19/2024 2:0 2 AM EDT COMPREHENSIVE METABOLIC PANEL, PLASMA Routine 05/19/2024 2:02 AM EDT POCT GLUCOSE METER UNSOLICITED RESULTS Routine 05/19/2024 1:28 AM EDT POCT GLUCOSE METER UNSOLICITED RESULTS Routine 05/19/2024 1:10 AM EDT INSERT PICC LINE Routine 05/19/2024 12:50 AM EDT COMPREHENSIVE GI PANEL BY PCR Routine 05/18/2024 11:47 PM EDT CLOSTRIDIODES (CLOSTRIDIUM) DIFFICILE,PCR Routine 05/18/2024 11:47 PM EDT POCT GLUCOSE METER UNSOLICITED RESULTS Routine 05/18/2024 11:21 PM EDT PEP THERAPY Routine 05/18/2024 10:00 PM EDT OXYGEN THERAPY Routine 05/18/2024 8:00 PM EDT PEP THERAPY Routine 05/18/2024 6:00 PM EDT POCT GLUCOSE METER UNSOLICITED RESULTS Routine 05/18/2024 5:55 PM EDT [facility], E/M 30-74 MINUTES Routine 05/18/2024 2:28 PM EDT S/P CABG x 4 POCT GLUCOSE METER UNSOLICITED RESULTS Routine 05/18/2024 2:06 PM EDT PEP THERAPY Routine 05/18/2024 2:00 PM EDT FL UPPER GI Routine 05/18/2024 11:25 AM EDT PEP THERAPY Routine 05/18/2024 10:00 AM EDT POCT GLUCOSE METER UNSOLICITED RESULTS Routine 05/18/2024 9:29 AM EDT OXYGEN THERAPY Routine 05/18/2024 8:00 AM EDT PEP THERAPY Routine 05/18/2024 6:00 AM EDT PHOSPHORUS, PLASMA Add-On 05/18/2024 4: 00 AM EDT MAGNESIUM, PLASMA Add-On 05/18/2024 4:0 0 AM EDT LIPASE, PLASMA Routine 05/18/2024 4:00 AM EDT GAMMA GLUTAMYLTRANSFERASE, PLASMA Routine 05/18/2024 4:00 AM EDT BLOOD GAS PANEL, ARTERIAL Routine 05/18/2024 4:00 AM EDT AMYLASE, PLASMA Routine 05/18/2024 4:00 AM EDT HEPATIC FUNCTION PANEL Routine 4:00 AM EDT POCT GLUCOSE METER UNSOLICITED RESULTS Routine 05/18/2024 3:59 AM EDT XR CHEST 1 VIEW Routine 05/18/2024 2:[address] ABDOMEN PELVIS W IV CONTRAST STAT 05/18/2024 2:[address] CHEST W IV CONTRAST STAT 2:[address] HEAD WO IV CONTRAST STAT 2:19 AM EDT CBC WITH AUTO DIFFERENTIAL Routine 05/18/2024 12:20 AM EDT MAGNESIUM, PLASMA Routine 05/18/2024 12:20 AM EDT COMPREHENSIVE METABOLIC PANEL, PLASMA Routine 05/18/2024 12:20 AM EDT POCT GLUCOSE METER UNSOLICITED RESULTS Routine 05/18/2024 12:19 AM EDT METHICILLIN RESISTANT STAPHYLOCOCCUS AUREUS (MRSA) BY PCR Routine 05/17/2024 10:58 PM EDT PEP THERAPY Routine 05/17/2024 10:00 PM EDT OXYGEN THERAPY Routine 05/17/2024 8:00 PM EDT POCT GLUCOSE METER UNSOLICITED RESULTS Routine 05/17/2024 7:24 PM EDT FUNGAL BLOOD CULTURE Routine 05/17/2024 6:13 PM EDT BETA GLUCAN SERUM (SO) Routine 6:13 PM EDT CBC WITH AUTO DIFFERENTIAL Routine 05/17/2024 6:13 PM EDT AFB BLOOD CULTURE Routine 05/17/2024 6:1 3 PM EDT ISOLATOR BLOOD CULTURE Routine 6:13 PM EDT PEP THERAPY Routine 05/17/2024 6:00 PM EDT [facility], E/M 30-74 MINUTES Routine 05/17/2024 4:40 PM EDT S/P CABG x 4 BLOOD GAS PANEL, ARTERIAL STAT 05/17/2024 3:14 PM EDT TEG GLOBAL HEMOSTASIS WITH HEPARINASE Routine 05/17/2024 3:08 PM EDT INFLUENZA A,B AND RESPIRATORY SYNCYTIAL VIRUS (RSV) BY PCR Routine 05/17/2024 3:08 PM EDT PROCALCITONIN, PLASMA STAT Add-on 05/17/2024 3:08 PM EDT APTT Routine 05/17/2024 3:08 PM EDT PROTHROMBIN TIME(PT) / INR Routine 05/17/2024 3:08 PM EDT ANTI XA LEVEL UNFRACTIONATED HEPARIN Routine 05/17/2024 3:08 PM EDT CBC W/O DIFFERENTIAL Routine 05/17/2024 3:08 PM EDT PHOSPHORUS, PLASMA Routine 05/17/2024 3: 08 PM EDT MAGNESIUM, PLASMA Routine 05/17/2024 3:0 8 PM EDT BASIC METABOLIC PANEL, PLASMA Routine 05/17/2024 3:08 PM EDT URINALYSIS WITH REFLEX MICROSCOPIC Routine 05/17/2024 3:07 PM EDT URINE CULTURE Routine 05/17/2024 3:07 PM EDT PEP THERAPY Routine 05/17/2024 2:00 PM EDT LACTATE, VENOUS Routine 05/17/2024 11:16 AM EDT BLOOD CULTURE (AEROBIC/ANAEROBIC SET) Routine 05/17/2024 11:16 AM EDT POCT GLUCOSE METER UNSOLICITED RESULTS Routine 05/17/2024 10:59 AM EDT TRANSFUSE RED BLOOD CELLS Routine 05/17/2024 10:55 AM EDT WBC DIFFERENTIAL Add-On 05/17/2024 10:29 AM EDT EXTRA TUBE LAVENDER TOP Routine 05/17/2024 10:29 AM EDT EXTRA TUBES Routine 05/17/2024 10:29 AM EDT CBC W/O DIFFERENTIAL Routine 05/17/2024 10:29 AM EDT C-REACTIVE PROTEIN, PLASMA Routine 05/17/2024 10:23 AM EDT MAGNESIUM, PLASMA Routine 05/17/2024 10:23 AM EDT LIPASE, PLASMA Add-On 05/17/2024 10:23 AM EDT COMPREHENSIVE METABOLIC PANEL, PLASMA Routine 05/17/2024 10:23 AM EDT BASIC METABOLIC PANEL, PLASMA Routine 05/17/2024 10:23 AM EDT PEP THERAPY Routine 05/17/2024 10:00 AM EDT PREPARE RBC Routine 05/17/2024 9:04 AM EDT OXYGEN THERAPY Routine 05/17/2024 8:00 AM EDT POCT GLUCOSE METER UNSOLICITED RESULTS Routine 05/17/2024 6:04 AM EDT PEP THERAPY Routine 05/17/2024 6:00 AM EDT XR ABDOMEN 1 VIEW Routine 05/17/2024 5:5 1 AM EDT POCT GLUCOSE METER UNSOLICITED RESULTS Routine 05/17/2024 2:13 AM EDT POCT GLUCOSE METER UNSOLICITED RESULTS Routine 05/17/2024 1:03 AM EDT POCT GLUCOSE METER UNSOLICITED RESULTS Routine 05/16/2024 11:58 PM EDT PEP THERAPY Routine 05/16/2024 10:00 PM EDT OXYGEN THERAPY Routine 05/16/2024 8:00 PM EDT PEP THERAPY Routine 05/16/2024 6:00 PM EDT POCT GLUCOSE METER UNSOLICITED RESULTS Routine 05/16/2024 5:47 PM EDT PEP THERAPY Routine 05/16/2024 2:00 PM EDT POCT GLUCOSE METER UNSOLICITED RESULTS Routine 05/16/2024 12:10 PM EDT POTASSIUM, PLASMA Routine 05/16/2024 12:05 PM EDT PEP THERAPY Routine 05/16/2024 10:00 AM EDT OXYGEN THERAPY Routine 05/16/2024 8:00 AM EDT PEP THERAPY Routine 05/16/2024 6:00 AM EDT POCT GLUCOSE METER UNSOLICITED RESULTS Routine 05/16/2024 5:28 AM EDT CBC W/O DIFFERENTIAL Routine 05/16/2024 3:20 AM EDT MAGNESIUM, PLASMA Routine 05/16/2024 3:2 0 AM EDT COMPREHENSIVE METABOLIC PANEL, PLASMA Routine 05/16/2024 3:20 AM EDT XR ABDOMEN 1 VIEW Routine 05/16/2024 2:4 0 AM EDT XR CHEST 1 VIEW Routine 05/16/2024 2:37 AM EDT POCT GLUCOSE METER UNSOLICITED RESULTS Routine 05/16/2024 12:48 AM EDT PEP THERAPY Routine 05/15/2024 10:00 PM EDT OXYGEN THERAPY Routine 05/15/2024 8:00 PM EDT PEP THERAPY Routine 05/15/2024 6:00 PM EDT PEP THERAPY Routine 05/15/2024 2:00 PM EDT POCT GLUCOSE METER UNSOLICITED RESULTS Routine 05/15/2024 11:38 AM EDT PEP THERAPY Routine 05/15/2024 10:00 AM EDT OXYGEN THERAPY Routine 05/15/2024 8:00 AM EDT PEP THERAPY Routine 05/15/2024 6:00 AM EDT POCT GLUCOSE METER UNSOLICITED RESULTS Routine 05/15/2024 5:11 AM EDT XR ABDOMEN 1 VIEW Routine 05/15/2024 2:5 6 AM EDT WBC DIFFERENTIAL STAT 05/15/2024 1:13 AM EDT CBC W/O DIFFERENTIAL Routine 05/15/2024 1:13 AM EDT PHOSPHORUS, PLASMA Routine 05/15/2024 1: 13 AM EDT MAGNESIUM, PLASMA Routine 05/15/2024 1:1 3 AM EDT COMPREHENSIVE METABOLIC PANEL, PLASMA Routine 05/15/2024 1:13 AM EDT PEP THERAPY Routine 05/14/2024 10:00 PM EDT OXYGEN THERAPY Routine 05/14/2024 8:00 PM EDT POCT GLUCOSE METER UNSOLICITED RESULTS Routine 05/14/2024 6:04 PM EDT PEP THERAPY Routine 05/14/2024 6:00 PM EDT PEP THERAPY Routine 05/14/2024 2:00 PM EDT TRANSFUSE RED BLOOD CELLS Routine 05/14/2024 1:45 PM EDT POCT GLUCOSE METER UNSOLICITED RESULTS Routine 05/14/2024 12:10 PM EDT IRON & TOTAL IRON BINDING CAPACITY, PLASMA (INCLUDES TRANSFERRIN) Routine 05/14/2024 12:10 PM EDT TYPE AND SCREEN Routine 05/14/2024 12:10 PM EDT FERRITIN, SERUM Routine 05/14/2024 12:10 PM EDT PREPARE RBC Routine 05/14/2024 12:02 PM EDT PEP THERAPY Routine 05/14/2024 10:00 AM EDT XR CHEST 1 VIEW Routine 05/14/2024 9:50 AM EDT XR ABDOMEN 1 VIEW Routine 05/14/2024 9:5 0 AM EDT OXYGEN THERAPY Routine 05/14/2024 8:00 AM EDT PEP THERAPY Routine 05/14/2024 6:00 AM EDT CBC W/O DIFFERENTIAL Routine 05/14/2024 3:35 AM EDT PHOSPHORUS, PLASMA Routine 05/14/2024 3: 35 AM EDT MAGNESIUM, PLASMA Routine 05/14/2024 3:3 5 AM EDT BASIC METABOLIC PANEL, PLASMA Routine 05/14/2024 3:35 AM EDT PEP THERAPY Routine 05/13/2024 10:00 PM EDT SARS COV-2/COVID-19 BY PCR Routine 05/13/2024 9:34 PM EDT NASOPHARYNGEAL RESPIRATORY PANEL Routine 05/13/2024 9:34 PM EDT OXYGEN THERAPY Routine 05/13/2024 8:00 PM EDT PEP THERAPY Routine 05/13/2024 6:00 PM EDT POCT GLUCOSE METER UNSOLICITED RESULTS Routine 05/13/2024 5:21 PM EDT PEP THERAPY Routine 05/13/2024 2:00 PM EDT POCT GLUCOSE METER UNSOLICITED RESULTS Routine 05/13/2024 12:23 PM EDT PEP THERAPY Routine 05/13/2024 10:00 AM EDT BLOOD CULTURE (AEROBIC/ANAEROBIC SET) Routine 05/13/2024 9:47 AM EDT OXYGEN THERAPY Routine 05/13/2024 8:00 AM EDT PHOSPHORUS, PLASMA Routine 05/13/2024 5: 54 AM EDT HEPATIC FUNCTION PANEL Add-On 5:54 AM EDT XR CHEST 1 VIEW Routine 05/13/2024 2:43 AM EDT XR ABDOMEN 1 VIEW Routine 05/13/2024 2:4 3 AM EDT PROCALCITONIN, PLASMA Routine 05/13/2024 12:43 AM EDT CBC W/O DIFFERENTIAL Routine 05/13/2024 12:43 AM EDT MAGNESIUM, PLASMA Routine 05/13/2024 12:43 AM EDT RENAL FUNCTION PANEL, PLASMA Routine 05/13/2024 12:43 AM EDT PEP THERAPY Routine 05/12/2024 10:00 PM EDT OXYGEN THERAPY Routine 05/12/2024 8:00 PM EDT POCT GLUCOSE METER UNSOLICITED RESULTS Routine 05/12/2024 6:40 PM EDT PEP THERAPY Routine 05/12/2024 6:00 PM EDT PEP THERAPY Routine 05/12/2024 2:00 PM EDT LACTATE, VENOUS Routine 05/12/2024 1:11 PM EDT MAGNESIUM, PLASMA Routine 05/12/2024 12:55 PM EDT RENAL FUNCTION PANEL, PLASMA Routine 05/12/2024 12:55 PM EDT POCT GLUCOSE METER UNSOLICITED RESULTS Routine 05/12/2024 12:01 PM EDT POCT GLUCOSE METER UNSOLICITED RESULTS Routine 05/12/2024 11:[address] ABDOMEN PELVIS WO IV CONTRAST STAT 05/12/2024 11:42 AM EDT LACTATE, VENOUS Routine 05/12/2024 10:12 AM EDT PEP THERAPY Routine 05/12/2024 10:00 AM EDT OXYGEN THERAPY Routine 05/12/2024 8:00 AM EDT POCT GLUCOSE METER UNSOLICITED RESULTS Routine 05/12/2024 6:57 AM EDT PEP THERAPY Routine 05/12/2024 6:00 AM EDT XR CHEST 1 VIEW Routine 05/12/2024 2:33 AM EDT BLOOD GAS PANEL, VENOUS Routine 05/12/2024 12:58 AM EDT PROCALCITONIN, PLASMA Add-On 05/12/2024 12:34 AM EDT CBC W/O DIFFERENTIAL Routine 05/12/2024 12:34 AM EDT PHOSPHORUS, PLASMA Routine 05/12/2024 12:34 AM EDT MAGNESIUM, PLASMA Routine 05/12/2024 12:34 AM EDT LIPASE, PLASMA Add-On 05/12/2024 12:34 AM EDT BASIC METABOLIC PANEL, PLASMA Routine 05/12/2024 12:34 AM EDT POCT GLUCOSE METER UNSOLICITED RESULTS Routine 05/12/2024 12:22 AM EDT XR ABDOMEN 1 VIEW STAT 05/11/2024 11:53 PM EDT PEP THERAPY Routine 05/11/2024 10:00 PM EDT OXYGEN THERAPY Routine 05/11/2024 8:00 PM EDT POCT GLUCOSE METER UNSOLICITED RESULTS Routine 05/11/2024 6:09 PM EDT PEP THERAPY Routine 05/11/2024 6:00 PM EDT MAGNESIUM, PLASMA Routine 05/11/2024 2:0 2 PM EDT RENAL FUNCTION PANEL, PLASMA Routine 05/11/2024 2:02 PM EDT PEP THERAPY Routine 05/11/2024 2:00 PM EDT POCT GLUCOSE METER UNSOLICITED RESULTS Routine 05/11/2024 11:48 AM EDT POCT GLUCOSE METER UNSOLICITED RESULTS Routine 05/11/2024 11:14 AM EDT PEP THERAPY Routine 05/11/2024 10:00 AM EDT OXYGEN THERAPY Routine 05/11/2024 8:00 AM EDT PEP THERAPY Routine 05/11/2024 6:00 AM EDT CBC W/O DIFFERENTIAL Routine 05/11/2024 2:38 AM EDT PHOSPHORUS, PLASMA Routine 05/11/2024 2: 38 AM EDT MAGNESIUM, PLASMA Routine 05/11/2024 2:3 8 AM EDT BLOOD GAS PANEL, VENOUS Routine 05/11/2024 2:38 AM EDT BASIC METABOLIC PANEL, PLASMA Routine 05/11/2024 2:38 AM EDT XR ABDOMEN 1 VIEW Routine 05/11/2024 2:2 0 AM EDT XR CHEST 1 VIEW Routine 05/11/2024 2:17 AM EDT PEP THERAPY Routine 05/10/2024 10:00 PM EDT POCT GLUCOSE METER UNSOLICITED RESULTS Routine 05/10/2024 8:57 PM EDT OXYGEN THERAPY Routine 05/10/2024 8:00 PM EDT PEP THERAPY Routine 05/10/2024 6:00 PM EDT POCT GLUCOSE METER UNSOLICITED RESULTS Routine 05/10/2024 5:38 PM EDT PEP THERAPY Routine 05/10/2024 2:00 PM EDT POCT GLUCOSE METER UNSOLICITED RESULTS Routine 05/10/2024 1:26 PM EDT XR ABDOMEN 1 VIEW STAT 05/10/2024 11:41 AM EDT PEP THERAPY Routine 05/10/2024 10:00 AM EDT XR CHEST 1 VIEW STAT 05/10/2024 9:17 AM EDT OXYGEN THERAPY Routine 05/10/2024 8:00 AM EDT PEP THERAPY Routine 05/10/2024 6:00 AM EDT CBC W/O DIFFERENTIAL Routine 05/10/2024 5:41 AM EDT PHOSPHORUS, PLASMA Routine 05/10/2024 5: 41 AM EDT MAGNESIUM, PLASMA Routine 05/10/2024 5:4 1 AM EDT BLOOD GAS PANEL, VENOUS Routine 05/10/2024 5:41 AM EDT HEPATIC FUNCTION PANEL Routine 5:41 AM EDT BASIC METABOLIC PANEL, PLASMA Routine 05/10/2024 5:41 AM EDT POCT GLUCOSE METER UNSOLICITED RESULTS Routine 05/10/2024 12:09 AM EDT PEP THERAPY Routine 05/09/2024 10:00 PM EDT OXYGEN THERAPY Routine 05/09/2024 8:00 PM EDT PEP THERAPY Routine 05/09/2024 6:00 PM EDT POCT GLUCOSE METER UNSOLICITED RESULTS Routine 05/09/2024 5:[address] ABDOMEN PELVIS WO IV CONTRAST STAT 05/09/2024 4:29 PM EDT XR ABDOMEN 1 VIEW Routine 05/09/2024 4:0 0 PM EDT POCT VENOUS BLOOD GAS GEM UNSOLICITED RESULTS Routine 05/09/2024 3:15 PM EDT POCT GLUCOSE METER UNSOLICITED RESULTS Routine 05/09/2024 2:21 PM EDT HEMOGLOBIN AND HEMATOCRIT, BLOOD Routine 05/09/2024 2:21 PM EDT PEP THERAPY Routine 05/09/2024 2:00 PM EDT POCT GLUCOSE METER UNSOLICITED RESULTS Routine 05/09/2024 12:42 PM EDT XR ABDOMEN 1 VIEW Routine 05/09/2024 12:21 PM EDT POCT GLUCOSE METER UNSOLICITED RESULTS Routine 05/09/2024 12:18 PM EDT POCT GLUCOSE METER UNSOLICITED RESULTS Routine 05/09/2024 12:06 PM EDT POCT GLUCOSE METER UNSOLICITED RESULTS Routine 05/09/2024 12:05 PM EDT POCT GLUCOSE METER UNSOLICITED RESULTS Routine 05/09/2024 12:02 PM EDT POCT GLUCOSE METER UNSOLICITED RESULTS Routine 05/09/2024 12:00 PM EDT POCT GLUCOSE METER UNSOLICITED RESULTS Routine 05/09/2024 11:32 AM EDT BETA HYDROXYBUTYRIC ACID Add-On 05/09/2024 11:30 AM EDT PREALBUMIN, PLASMA Routine 05/09/2024 11:30 AM EDT PHOSPHORUS, PLASMA Routine 05/09/2024 11:30 AM EDT MAGNESIUM, PLASMA Routine 05/09/2024 11:30 AM EDT HEPATIC FUNCTION PANEL Routine 11:30 AM EDT BASIC METABOLIC PANEL, PLASMA Routine 05/09/2024 11:30 AM EDT WA CRITICAL CARE, ADDL 30 MIN Routine 05/09/2024 11:17 AM EDT S/P CABG x 4 POCT GLUCOSE METER UNSOLICITED RESULTS Routine 05/09/2024 11:06 AM EDT INSERT PERIPHERAL IV Routine 05/09/2024 10:10 AM EDT POCT GLUCOSE METER UNSOLICITED RESULTS Routine 05/09/2024 10:06 AM EDT PEP THERAPY Routine 05/09/2024 10:00 AM EDT POCT GLUCOSE METER UNSOLICITED RESULTS Routine 05/09/2024 9:48 AM EDT XR CHEST 1 VIEW Routine 05/09/2024 9:33 AM EDT ECG ADULT STAT 05/09/2024 9:30 AM EDT POCT GLUCOSE METER UNSOLICITED RESULTS Routine 05/09/2024 9:26 AM EDT POCT GLUCOSE METER UNSOLICITED RESULTS Routine 05/09/2024 9:08 AM EDT POCT GLUCOSE METER UNSOLICITED RESULTS Routine 05/09/2024 8:42 AM EDT POCT GLUCOSE METER UNSOLICITED RESULTS Routine 05/09/2024 8:39 AM EDT OXYGEN THERAPY Routine 05/09/2024 8:00 AM EDT PEP THERAPY Routine 05/09/2024 6:00 AM EDT TRANSFUSE RED BLOOD CELLS Routine 05/09/2024 3:52 AM EDT POCT GLUCOSE METER UNSOLICITED RESULTS Routine 05/09/2024 3:01 AM EDT TYPE AND SCREEN Routine 05/09/2024 2:24 AM EDT POCT GLUCOSE METER UNSOLICITED RESULTS Routine 05/09/2024 2:22 AM EDT PREPARE RBC Routine 05/09/2024 1:51 AM EDT ASPARTATE AMINOTRANSFERASE, PLASMA Add-On 05/09/2024 12:52 AM EDT ALANINE AMINOTRANSFERASE, PLASMA Add-On 05/09/2024 12:52 AM EDT CBC W/O DIFFERENTIAL Routine 05/09/2024 12:52 AM EDT BASIC METABOLIC PANEL, PLASMA Routine 05/09/2024 12:52 AM EDT POCT GLUCOSE METER UNSOLICITED RESULTS Routine 05/08/2024 10:15 PM EDT POCT GLUCOSE METER UNSOLICITED RESULTS Routine 05/08/2024 10:14 PM EDT PEP THERAPY Routine 05/08/2024 10:00 PM EDT OXYGEN THERAPY Routine 05/08/2024 8:00 PM EDT PEP THERAPY Routine 05/08/2024 6:00 PM EDT CBC W/O DIFFERENTIAL STAT 05/08/2024 5:02 PM EDT MAGNESIUM, PLASMA Routine 05/08/2024 5:0 1 PM EDT RENAL FUNCTION PANEL, PLASMA Routine 05/08/2024 5:01 PM EDT PEP THERAPY Routine 05/08/2024 2:00 PM EDT [facility] CRIT[facility] CARE, ADDL 30 MIN Routine 05/08/2024 1:26 PM EDT CAD, multiple vessel S/P CABG x 4 POCT GLUCOSE METER UNSOLICITED RESULTS Routine 05/08/2024 12:23 PM EDT PEP THERAPY Routine 05/08/2024 10:00 AM EDT POCT GLUCOSE METER UNSOLICITED RESULTS Routine 05/08/2024 9:29 AM EDT OXYGEN THERAPY Routine 05/08/2024 8:00 AM EDT PEP THERAPY Routine 05/08/2024 6:00 AM EDT POCT GLUCOSE METER UNSOLICITED RESULTS Routine 05/08/2024 5:54 AM EDT XR CHEST 1 VIEW Routine 05/08/2024 2:42 AM EDT BASIC METABOLIC PANEL, PLASMA Routine 05/08/2024 12:46 AM EDT BLOOD GAS PANEL, ARTERIAL Routine 05/08/2024 12:23 AM EDT POCT GLUCOSE METER UNSOLICITED RESULTS Routine 05/08/2024 12:21 AM EDT CBC W/O DIFFERENTIAL Routine 05/08/2024 12:21 AM EDT ECG ADULT STAT 05/07/2024 11:23 PM EDT POTASSIUM, PLASMA STAT 05/07/2024 11:15 PM EDT POCT GLUCOSE METER UNSOLICITED RESULTS Routine 05/07/2024 11:04 PM EDT POCT GLUCOSE METER UNSOLICITED RESULTS Routine 05/07/2024 10:38 PM EDT POCT GLUCOSE METER UNSOLICITED RESULTS Routine 05/07/2024 10:22 PM EDT PEP THERAPY Routine 05/07/2024 10:00 PM EDT POCT GLUCOSE METER UNSOLICITED RESULTS Routine 05/07/2024 9:20 PM EDT OXYGEN THERAPY Routine 05/07/2024 8:00 PM EDT MAGNESIUM, PLASMA Routine 05/07/2024 7:5 8 PM EDT RENAL FUNCTION PANEL, PLASMA Routine 05/07/2024 7:58 PM EDT PEP THERAPY Routine 05/07/2024 6:00 PM EDT POCT GLUCOSE METER UNSOLICITED RESULTS Routine 05/07/2024 5:58 PM EDT PEP THERAPY Routine 05/07/2024 2:00 PM EDT POCT GLUCOSE METER UNSOLICITED RESULTS Routine 05/07/2024 1:50 PM EDT [facility], ADDL 30 MIN Routine 05/07/2024 10:11 AM EDT Cardiac volume overload PEP THERAPY Routine 05/07/2024 10:00 AM EDT BLOOD GAS PANEL WITH OXIMETRY, MIXED VENOUS Pending Discharge 05/07/2024 8:08 AM EDT HEMOGLOBIN Pending Discharge 05/07/2024 8:08 AM EDT HEMATOCRIT, BLOOD Pending Discharge 05/07/2024 8:08 AM EDT POTASSIUM, PLASMA Pending Discharge 05/07/2024 8:08 AM EDT BLOOD GAS PANEL, ARTERIAL Pending Discharge 05/07/2024 8:08 AM EDT OXYGEN THERAPY Routine 05/07/2024 8:00 AM EDT OXYGEN THERAPY Routine 05/07/2024 6:58 AM EDT OXYGEN THERAPY Routine 05/07/2024 6:58 AM EDT EXTUBATION Routine 05/07/2024 6:42 AM EDT POCT ARTERIAL BLOOD GAS GEM UNSOLICITED RESULTS Routine 05/07/2024 6:35 AM EDT END TIDAL CO2 MONITORING Routine 05/07/2024 6:04 AM EDT VENTILATOR - ADULT Routine 05/07/2024 6: 04 AM EDT PEP THERAPY Routine 05/07/2024 6:00 AM EDT XR CHEST 1 VIEW Routine 05/07/2024 5:42 AM EDT ECG ADULT Routine 05/07/2024 4:16 AM EDT BLOOD GAS PANEL, ARTERIAL Pending Discharge 05/07/2024 3:52 AM EDT BLOOD GAS PANEL WITH OXIMETRY, MIXED VENOUS Pending Discharge 05/07/2024 12:46 AM EDT CBC W/O DIFFERENTIAL Pending Discharge 05/07/2024 12:46 AM EDT BASIC METABOLIC PANEL, PLASMA Pending Discharge 05/07/2024 12:46 AM EDT BLOOD GAS PANEL, ARTERIAL Pending Discharge 05/07/2024 12:45 AM EDT [facility], E/M 30-74 MINUTES Routine 05/06/2024 10:03 PM EDT S/P CABG x 4 PEP THERAPY Routine 05/06/2024 10:00 PM EDT XR CHEST 1 VIEW STAT 05/06/2024 9:09 PM EDT DEENA AURIS SURVEILLANCE BY PCR Pending Discharge 05/06/2024 8:44 PM EDT MULTI DRUG RESISTANCE TEST Pending Discharge 05/06/2024 8:44 PM EDT END TIDAL CO2 MONITORING Routine 05/06/2024 8:43 PM EDT VENTILATOR - ADULT Routine 05/06/2024 8: 43 PM EDT BLOOD GAS PANEL, ARTERIAL STAT 05/06/2024 8:43 PM EDT APTT STAT 05/06/2024 8:42 PM EDT PROTHROMBIN TIME(PT) / INR STAT 05/06/2024 8:42 PM EDT CBC W/O DIFFERENTIAL STAT 05/06/2024 8:42 PM EDT PHOSPHORUS, PLASMA STAT 05/06/2024 8: 42 PM EDT MAGNESIUM, PLASMA STAT 05/06/2024 8:4 2 PM EDT BASIC METABOLIC PANEL, PLASMA STAT 05/06/2024 8:42 PM EDT PEP THERAPY Routine 05/06/2024 8:40 PM EDT PEP THERAPY Routine 05/06/2024 8:40 PM EDT PEP THERAPY Routine 05/06/2024 8:40 PM EDT PEP THERAPY Routine 05/06/2024 8:40 PM EDT PEP THERAPY Routine 05/06/2024 8:40 PM EDT ECG ADULT STAT 05/06/2024 8:38 PM EDT POCT ARTERIAL BLOOD GAS GEM UNSOLICITED RESULTS Routine 05/06/2024 7:39 PM EDT POCT ARTERIAL BLOOD GAS GEM UNSOLICITED RESULTS Routine 05/06/2024 7:09 PM EDT TRANSFUSE PLATELETS Routine 05/06/2024 6 :55 PM EDT PREPARE RBC STAT 05/06/2024 6:41 PM EDT PREPARE PLATELETS STAT 05/06/2024 6:4 0 PM EDT TRANSFUSE RED BLOOD CELLS Routine 05/06/2024 6:39 PM EDT POCT ARTERIAL BLOOD GAS GEM UNSOLICITED RESULTS Routine 05/06/2024 6:38 PM EDT TRANSFUSE PLATELETS Routine 05/06/2024 6 :23 PM EDT POCT ARTERIAL BLOOD GAS GEM UNSOLICITED RESULTS Routine 05/06/2024 6:12 PM EDT POCT ARTERIAL BLOOD GAS GEM UNSOLICITED RESULTS Routine 05/06/2024 5:57 PM EDT POCT ARTERIAL BLOOD GAS GEM UNSOLICITED RESULTS Routine 05/06/2024 5:42 PM EDT POCT ARTERIAL BLOOD GAS GEM UNSOLICITED RESULTS Routine 05/06/2024 5:08 PM EDT TRANSFUSE RED BLOOD CELLS Routine 05/06/2024 4:45 PM EDT POCT ARTERIAL BLOOD GAS GEM UNSOLICITED RESULTS Routine 05/06/2024 4:43 PM EDT POCT ARTERIAL BLOOD GAS GEM UNSOLICITED RESULTS Routine 05/06/2024 4:10 PM EDT POCT ARTERIAL BLOOD GAS GEM UNSOLICITED RESULTS Routine 05/06/2024 3:45 PM EDT PREPARE PLATELETS STAT 05/06/2024 3:0 4 PM EDT POCT ARTERIAL BLOOD GAS GEM UNSOLICITED RESULTS Routine 05/06/2024 2:59 PM EDT POCT ARTERIAL BLOOD GAS GEM UNSOLICITED RESULTS Routine 05/06/2024 2:37 PM EDT POCT ARTERIAL BLOOD GAS GEM UNSOLICITED RESULTS Routine 05/06/2024 2:11 PM EDT TRANSFUSE RED BLOOD CELLS Routine 05/06/2024 1:34 PM EDT POCT ARTERIAL BLOOD GAS GEM UNSOLICITED RESULTS Routine 05/06/2024 1:33 PM EDT TRANSFUSE RED BLOOD CELLS Routine 05/06/2024 1:07 PM EDT POCT ARTERIAL BLOOD GAS GEM UNSOLICITED RESULTS Routine 05/06/2024 1:05 PM EDT POCT ARTERIAL BLOOD GAS GEM UNSOLICITED RESULTS Routine 05/06/2024 11:25 AM EDT QPLUS Routine 05/06/2024 10:36 AM EDT POCT ARTERIAL BLOOD GAS GEM UNSOLICITED RESULTS Routine 05/06/2024 9:31 AM EDT PREPARE RBC Routine 05/06/2024 9:04 AM EDT CABG, 2 OR MORE VESSELS 05/06/2024 8:59 AM EDT CAD, multiple vessel EXTRA TUBE LIGHT GREEN TOP Routine 05/06/2024 12:07 AM EDT EXTRA TUBES Routine 05/06/2024 12:07 AM EDT PLATELET P2Y12 RECEPTOR BLOCKADE, VERIFY NOW PRU Routine 05/06/2024 12:07 AM EDT ANTI XA LEVEL UNFRACTIONATED HEPARIN Timed 05/06/2024 12:07 AM EDT CBC W/O DIFFERENTIAL Routine 05/06/2024 12:07 AM EDT TYPE AND SCREEN Routine 05/05/2024 4:16 PM EDT ANTI XA LEVEL UNFRACTIONATED HEPARIN Timed 05/05/2024 6:19 AM EDT PLATELET P2Y12 RECEPTOR BLOCKADE, VERIFY NOW PRU Routine 05/05/2024 12:32 AM EDT ANTI XA LEVEL UNFRACTIONATED HEPARIN Timed 05/05/2024 12:32 AM EDT CBC W/O DIFFERENTIAL Routine 05/05/2024 12:32 AM EDT MAGNESIUM, PLASMA Routine 05/05/2024 12:32 AM EDT COMPREHENSIVE METABOLIC PANEL, PLASMA Routine 05/05/2024 12:32 AM EDT ANTI XA LEVEL UNFRACTIONATED HEPARIN Timed 05/04/2024 4:05 PM EDT PLATELET P2Y12 RECEPTOR BLOCKADE, VERIFY NOW PRU Routine 05/04/2024 9:36 AM EDT ANTI XA LEVEL UNFRACTIONATED HEPARIN Timed 05/04/2024 9:36 AM EDT POCT GLUCOSE METER UNSOLICITED RESULTS Routine 05/04/2024 5:13 AM EDT PLATELET P2Y12 RECEPTOR BLOCKADE, VERIFY NOW PRU Routine 05/04/2024 2:50 AM EDT ANTI XA LEVEL UNFRACTIONATED HEPARIN Timed 05/04/2024 2:50 AM EDT CBC W/O DIFFERENTIAL Routine 05/04/2024 2:50 AM EDT MAGNESIUM, PLASMA Routine 05/04/2024 2:5 0 AM EDT BASIC METABOLIC PANEL, PLASMA Routine 05/04/2024 2:50 AM EDT XR CHEST 2 VIEWS Routine 05/03/2024 12:19 PM EDT HC DIFFUSING CAPACITY - CARBON MONOXIDE DIFFUSING CAPACITY Routine 05/03/2024 8:37 AM EDT CAD, multiple vessel ANTI XA LEVEL UNFRACTIONATED HEPARIN Timed 05/03/2024 7:44 AM EDT PLATELET P2Y12 RECEPTOR BLOCKADE, VERIFY NOW PRU Routine 05/03/2024 4:09 AM EDT CBC W/O DIFFERENTIAL Routine 05/03/2024 4:09 AM EDT MAGNESIUM, PLASMA Routine 05/03/2024 4:0 9 AM EDT BASIC METABOLIC PANEL, PLASMA Routine 05/03/2024 4:09 AM EDT ANTI XA LEVEL UNFRACTIONATED HEPARIN Timed 05/02/2024 11:36 PM EDT ANTI XA LEVEL UNFRACTIONATED HEPARIN Timed 05/02/2024 6:45 PM EDT VAS US CAROTID DUPLEX BILATERAL Routine 05/02/2024 3:22 PM EDT VAS US VENOUS DUPLEX LOWER EXTREMITY BILATERAL Routine 05/02/2024 3:21 PM EDT ANTI XA LEVEL UNFRACTIONATED HEPARIN Timed 05/02/2024 1:05 PM EDT ECHO, ADULT TRANSTHORACIC COMPLETE W/ 3D STAT 05/02/2024 7:35 AM EDT ANTI XA LEVEL UNFRACTIONATED HEPARIN Timed 05/02/2024 6:28 AM EDT TROPONIN T, HIGH SENSITIVITY, 2 HOUR, PLASMA Timed 05/02/2024 2:[address] CHEST WO IV CONTRAST STAT 05/02/2024 2:11 AM EDT EXTRA TUBE GOLD TOP Routine 05/01/2024 11:58 PM EDT MORPHOLOGY STAT 05/01/2024 11:58 PM EDT TROPONIN T, HIGH SENSITIVITY, 0 HOUR, PLASMA, REFLEX TO 2 HOUR STAT 05/01/2024 11:58 PM EDT EXTRA TUBE LAVENDER TOP Routine 05/01/2024 11:58 PM EDT EXTRA TUBE LIGHT GREEN TOP Routine 05/01/2024 11:58 PM EDT IONIZED CALCIUM, SERUM STAT 11:58 PM EDT EXTRA TUBES Routine 05/01/2024 11:58 PM EDT MANUAL DIFFERENTIAL STAT 05/01/2024 11:58 PM EDT PLATELET P2Y12 RECEPTOR BLOCKADE, VERIFY NOW PRU Routine 05/01/2024 11:58 PM EDT N-TERMINAL PROBNP, PLASMA STAT 05/01/2024 11:58 PM EDT APTT STAT 05/01/2024 11:58 PM EDT PROTHROMBIN TIME(PT) / INR STAT 05/01/2024 11:58 PM EDT ANTI XA LEVEL UNFRACTIONATED HEPARIN Timed 05/01/2024 11:58 PM EDT FIBRINOGEN,QUANTITATIV E (CLOTTABLE) Routine 05/01/2024 11:58 PM EDT CBC WITH AUTO DIFFERENTIAL STAT 05/01/2024 11:58 PM EDT TYPE AND SCREEN Routine 05/01/2024 11:58 PM EDT PHOSPHORUS, PLASMA STAT 05/01/2024 11:58 PM EDT MAGNESIUM, PLASMA STAT 05/01/2024 11:58 PM EDT HEMOGLOBIN A1C Add-On 05/01/2024 11:58 PM EDT LIPID PROFILE, PLASMA Add-On 05/01/2024 11:58 PM EDT COMPREHENSIVE METABOLIC PANEL, PLASMA STAT 05/01/2024 11:58 PM EDT ECG ADULT STAT 05/01/2024 11:25 PM EDT XR CHEST 1 VIEW STAT 05/01/2024 11:18 PM EDT documented in this encounter Results * XR Abdomen 1 View (06/21/2024 4:36 AM EDT) Anatomical Region Laterality Modality Body Digital Radiogra phy Impressions 06/21/2024 10:22 AM EDT Improving ileus. CRITICAL RESULT: No. COMMUNICATION: Per this written report. Drafted by Zamzam Banda MD on 06/21/2024 10:20 AM Final report signed by Zamzam Banda MD on 06/21/2024 10:22 AM Narrative 06/21/2024 10:22 AM EDT CLINICAL INDICATION: evaluate ileus TECHNIQUE: Supine radiograph of the abdomen. COMPARISON: Abdominal x-ray 23 hours ago FINDINGS: Overall interval decrease in number in caliber of gas filled loops. Stomach is decompressed. Mild gaseous dilation of cecum in the right lower quadrant process. No pneumatosis or free air. A stoma is seen in the right upper quadrant. Cholecystectomy clips are seen in the right upper quadrant. Midline cutaneous sheridan are seen in the lower abdomen. Procedure Note Zamzam Banda MD - 06/21/2024 CLINICAL INDICATION: evaluate ileus TECHNIQUE: Supine radiograph of the abdomen. COMPARISON: Abdominal x-ray 23 hours ago FINDINGS: Overall interval decrease in number in caliber of gas filled loops.Stomach is decompressed. Mild gaseous dilation of cecum in the right lowerquadrant process. No pneumatosis or free air. A stoma is seen in the rightupper quadrant. Cholecystectomy clips are seen in the right upperquadrant. Midline cutaneous sheridan are seen in the lower abdomen. IMPRESSION: Improving ileus. CRITICAL RESULT: No. COMMUNICATION: Per this written report. Drafted by Zamzam Banda MD on 06/21/2024 10:20 AM Final report signed by Zamzam Banda MD on 06/21/2024 10:22 AM Trinity Yousif [employer] IMG XR PROCEDURES Final Result * XR Chest 1 View (06/21/2024 4:36 AM EDT) Anatomical Region Laterality Modality Chest Digital Radiogra phy Impressions 06/21/2024 7:27 AM EDT Stable exam. CRITICAL RESULT: No. COMMUNICATION: Per this written report. Drafted by Dinah Easton MD on 06/21/2024 7:27 AM Final report signed by Dinah Easton MD on 06/21/2024 7:27 AM Narrative 06/21/2024 7:27 AM EDT CLINICAL INDICATION: evaluate lung keene TECHNIQUE: XR CHEST 1 VIEW COMPARISON: 06/18/2024 FINDINGS: Stable cardiomediastinal contours. Postoperative mediastinum. Unchanged right perihilar linear scarring. Stable lung aeration. Procedure Note Dinah Easton MD - 06/21/2024 CLINICAL INDICATION: evaluate lung keene TECHNIQUE: XR CHEST 1 VIEW COMPARISON: 06/18/2024 FINDINGS: Stable cardiomediastinal contours. Postoperative mediastinum. Unchangedright perihilar linear scarring. Stable lung aeration. IMPRESSION: Stable exam. CRITICAL RESULT: No. COMMUNICATION: Per this written report. Drafted by Dinah Easton MD on 06/21/2024 7:27 AM Final report signed by Dinah Easton MD on 06/21/2024 7:27 AM us Trinity Yousif APRN IMG XR PROCEDURES Final Result * (ABNORMAL) Magnesium (06/21/2024 2:59 AM EDT) Magnesium, Plasma 1.7(L) 1.9 - 2.4 mg/dL 06/21/2024 3:52 AM EDT [facility] Blood Venous blood specimen / Unknown Venipuncture / Unknown 06/21/2024 2:59 AM EDT 06/21/2024 3:23 AM EDT us Trinity Yousif APRN LAB BLOOD ORDERABLES Final Res ult [facility] [address] [place] [address] * (ABNORMAL) Comprehensive metabolic panel (06/21/2024 2:59 AM EDT) Glucose, Plasma 94 74 - 99 mg/dL 06/21/2024 3:52 AM EDT [facility] BUN, Plasma 4(L) 7 - 21 mg/dL 06/21/2024 3:52 AM EDT [facility] Creatinine, Plasma 0.63 0.60 - 1.10 mg/dL 06/21/2024 3:52 AM EDT [facility] BUN/Creatinine Ratio 6 06/21/2024 3:52 AM EDT [facility] Sodium, Plasma 131(L) 136 - 145 mmol/L 06/21/2024 3:52 AM EDT [facility] Potassium, Plasma 3.9 3.6 - 4.9 mmol/L 06/21/2024 3:52 AM EDT [facility] Chloride, Plasma 98 97 - 107 mmol/L 06/21/2024 3:52 AM EDT [facility] CO2, Plasma 25 22 - 29 mmol/L 06/21/2024 3:52 AM EDT [facility] Anion Gap 8 6 - 16 mmol/L 06/21/2024 3:52 AM EDT [facility] Total Calcium, Plasma 8.1(L) 8.9 - 10.2 mg/dL 06/21/2024 3:52 AM EDT [facility] Total Protein 6.7 6.3 - 7.9 g/dL 06/21/2024 3:52 AM EDT [facility] Albumin, Plasma 2.5(L) 3.5 - 5.2 g/dL 06/21/2024 3:52 AM EDT [facility] AST, Plasma 31 10 - 35 U/L 06/21/2024 3:52 AM EDT [facility] ALT, Plasma 54(H) 10 - 35 U/L 06/21/2024 3:52 AM EDT [facility] Alkaline Phosphatase, Plasma 155(H) 35 - 104 U/L 06/21/2024 3:52 AM EDT [facility] Total Bilirubin, Plasma 0.2 0.2 - 1.1 mg/dL 06/21/2024 3:52 AM EDT [facility] eGFRcr 105.6 mL/min/1.7 3m*2 06/21/2024 3:52 AM EDT [facility] Comment:Reported eGFRcr in m L/min/1.73m2 is based the CKD-EPI 2020 equation that does not use a race coefficient. Blood Venous blood specimen / Unknown Venipuncture / Unknown 06/21/2024 2:59 AM EDT 06/21/2024 3:23 AM EDT us Trinity Yousif [employer] LAB BLOOD ORDERABLES Final Res ult [facility] [address] [place] [address] * (ABNORMAL) Hemogram (CBC) (06/21/2024 2:59 AM EDT) WBC Count 12.36(H) 3.70 - 10.30 10*3/uL LAB HEMATOLOGY METHOD 06/21/2024 3:32 AM EDT [facility] RBC Count 3.86(L) 3.90 - 5.20 10*6/uL LAB HEMATOLOGY METHOD 06/21/2024 3:32 AM EDT [facility] HGB 11.2 11.2 - 15.7 g/dL LAB HEMATOLOGY METHOD 06/21/2024 3:32 AM EDT [facility] HCT 34.9 34.0 - 45.0 % LAB HEMATOLOGY METHOD 06/21/2024 3:32 AM EDT [facility] Platelet Count 707(H) 155 - 369 10*3/uL LAB HEMATOLOGY METHOD 06/21/2024 3:32 AM EDT [facility] MCV 90 79 - 98 fL LAB HEMATOLOGY METHOD 06/21/2024 3:32 AM EDT [facility] MCH 29.0 26.0 - 32.0 pg LAB HEMATOLOGY METHOD 06/21/2024 3:32 AM EDT [facility] MCHC 32.1 30.7 - 35.5 g/dL LAB HEMATOLOGY METHOD 06/21/2024 3:32 AM EDT [facility] RDW 14.6(H) 11.5 - 14.5 % LAB HEMATOLOGY METHOD 06/21/2024 3:32 AM EDT [facility] MPV 8.6(L) 8.8 - 12.5 fL LAB HEMATOLOGY METHOD 06/21/2024 3:32 AM EDT [facility] nRBC 0.0 <=0.0 per 100 WBCs LAB HEMATOLOGY METHOD 06/21/2024 3:32 AM EDT [facility] Blood Venous blood specimen / Unknown Venipuncture / Unknown 06/21/2024 2:59 AM EDT 06/21/2024 3:24 AM EDT us Trinity Yousif [employer] LAB BLOOD ORDERABLES Final Res ult [facility] [address] [place] [address] * XR Abdomen 1 View (06/20/2024 5:30 AM EDT) Anatomical Region Laterality Modality Body Digital Radiogra phy Impressions 06/20/2024 9:38 AM EDT Gas-filled segments of large and small bowel, grossly unchanged. CRITICAL RESULT: No. COMMUNICATION: Per this written report. Drafted by Yamil Delong MD on 06/20/2024 9:37 AM Final report signed by Yamil Delong MD on 06/20/2024 9:38 AM Narrative 06/20/2024 9:38 AM EDT CLINICAL INDICATION: ileus TECHNIQUE: Supine radiograph of the abdomen. COMPARISON: Radiograph from one day prior FINDINGS: Again noted are gas-filled segments of large and small bowel. Moderate stool burden within the ascending colon. No obvious free gas. Procedure Note Yamil Delong MD - 06/20/2024 CLINICAL INDICATION: ileus TECHNIQUE: Supine radiograph of the abdomen. COMPARISON: Radiograph from one day prior FINDINGS: Again noted are gas-filled segments of large and small bowel. Moderatestool burden within the ascending colon. No obvious free gas. IMPRESSION: Gas-filled segments of large and small bowel, grossly unchanged. CRITICAL RESULT: No. COMMUNICATION: Per this written report. Drafted by Yamil Delong MD on 06/20/2024 9:37 AM Final report signed by Yamil Delong MD on 06/20/2024 9:38 AM Dulce Alamo APRN IMG XR PROCEDURES Final Resu lt * N-Terminal Probnp, Plasma (06/20/2024 4:45 AM EDT) N-Terminal, PROBNP, Plasma 652 0 - 899 pg/mL 06/20/2024 6:04 AM EDT [facility] Blood Venous blood specimen / Unknown Venipuncture / Unknown 06/20/2024 4:45 AM EDT 06/20/2024 5:24 AM EDT Dulce Alamo APRN LAB BLOOD ORDERABLES Final R esult [facility] [address] [place] [address] * (ABNORMAL) Comprehensive Metabolic Panel, Plasma (06/20/2024 4:45 AM EDT) [facility] Glucose, Plasma 98 74 - 99 mg/dL 06/20/2024 6:04 AM EDT [facility] BUN, Plasma 4(L) 7 - 21 mg/dL 06/20/2024 6:04 AM EDT [facility] Creatinine, Plasma 0.59(L) 0.60 - 1.10 mg/dL 06/20/2024 6:04 AM EDT [facility] BUN/Creatinine Ratio 7 06/20/2024 6:04 AM EDT [facility] Sodium, Plasma 129(L) 136 - 145 mmol/L 06/20/2024 6:04 AM EDT [facility] Potassium, Plasma 4.4 3.6 - 4.9 mmol/L 06/20/2024 6:04 AM EDT [facility] Chloride, Plasma 95(L) 97 - 107 mmol/L 06/20/2024 6:04 AM EDT [facility] CO2, Plasma 24 22 - 29 mmol/L 06/20/2024 6:04 AM EDT [facility] Anion Gap 10 6 - 16 mmol/L 06/20/2024 6:04 AM EDT [facility] Total Calcium, Plasma 7.9(L) 8.9 - 10.2 mg/dL 06/20/2024 6:04 AM EDT [facility] Total Protein 6.5 6.3 - 7.9 g/dL 06/20/2024 6:04 AM EDT [facility] Albumin, Plasma 2.5(L) 3.5 - 5.2 g/dL 06/20/2024 6:04 AM EDT [facility] AST, Plasma 45(H) 10 - 35 U/L 06/20/2024 6:04 AM EDT [facility] ALT, Plasma 68(H) 10 - 35 U/L 06/20/2024 6:04 AM EDT [facility] Alkaline Phosphatase, Plasma 159(H) 35 - 104 U/L 06/20/2024 6:04 AM EDT [facility] Total Bilirubin, Plasma 0.2 0.2 - 1.1 mg/dL 06/20/2024 6:04 AM EDT [facility] eGFRcr 107.3 mL/min/1.7 3m*2 06/20/2024 6:04 AM EDT [facility] Comment:Reported eGFRcr in m L/min/1.73m2 is based the CKD-EPI 2020 equation that does not use a race coefficient. Blood Venous blood specimen / Unknown Venipuncture / Unknown 06/20/2024 4:45 AM EDT 06/20/2024 5:24 AM EDT Dulce Alamo APRN LAB BLOOD ORDERABLES Final R esult Performing Organization Address City/[facility]/ZIP Co de Phone Number [facility] [address] [place] [address] * Magnesium, Plasma (06/20/2024 4:45 AM EDT) Magnesium, Plasma 1.9 1.9 - 2.4 mg/dL 06/20/2024 6:04 AM EDT [facility] Blood Venous blood specimen / Unknown Venipuncture / Unknown 06/20/2024 4:45 AM EDT 06/20/2024 5:24 AM EDT us Dulce Alamo [employer] LAB BLOOD ORDERABLES Final R esult Performing Organization Address City/[facility]/ZIP Co de Phone Number [facility] [address] [place] [address] * (ABNORMAL) CBC W/O Differential (06/20/2024 4:45 AM EDT) WBC Count 17.53(H) 3.70 - 10.30 10*3/uL LAB HEMATOLOGY METHOD 06/20/2024 5:54 AM EDT [facility] RBC Count 3.83(L) 3.90 - 5.20 10*6/uL LAB HEMATOLOGY METHOD 06/20/2024 5:54 AM EDT [facility] HGB 11.2 11.2 - 15.7 g/dL LAB HEMATOLOGY METHOD 06/20/2024 5:54 AM EDT [facility] HCT 34.5 34.0 - 45.0 % LAB HEMATOLOGY METHOD 06/20/2024 5:54 AM EDT [facility] Platelet Count 682(H) 155 - 369 10*3/uL LAB HEMATOLOGY METHOD 06/20/2024 5:54 AM EDT [facility] MCV 90 79 - 98 fL LAB HEMATOLOGY METHOD 06/20/2024 5:54 AM EDT [facility] MCH 29.2 26.0 - 32.0 pg LAB HEMATOLOGY METHOD 06/20/2024 5:54 AM EDT [facility] MCHC 32.5 30.7 - 35.5 g/dL LAB HEMATOLOGY METHOD 06/20/2024 5:54 AM EDT [facility] RDW 14.6(H) 11.5 - 14.5 % LAB HEMATOLOGY METHOD 06/20/2024 5:54 AM EDT [facility] MPV 8.8 8.8 - 12.5 fL LAB HEMATOLOGY METHOD 06/20/2024 5:54 AM EDT [facility] nRBC 0.0 <=0.0 per 100 WBCs LAB HEMATOLOGY METHOD 06/20/2024 5:54 AM EDT [facility] Blood Venous blood specimen / Unknown Venipuncture / Unknown 06/20/2024 4:45 AM EDT 06/20/2024 5:27 AM EDT us Dulce Alamo APRN LAB BLOOD ORDERABLES Final R esult [facility] [address] [place] [address] * N-Terminal Probnp, Plasma (06/19/2024 5:13 AM EDT) N-Terminal, PROBNP, Plasma 481 0 - 899 pg/mL 06/19/2024 6:05 PM EDT [facility] Blood Venous blood specimen / Unknown Venipuncture / Unknown 06/19/2024 5:13 AM EDT 06/19/2024 5:40 AM EDT us Dulce Alamo APRN LAB BLOOD ORDERABLES Final R esult [facility] [address] [place] [address] * (ABNORMAL) Magnesium (06/19/2024 5:13 AM EDT) Magnesium, Plasma 1.8(L) 1.9 - 2.4 mg/dL 06/19/2024 6:13 AM EDT [facility] Blood Venous blood specimen / Unknown Venipuncture / Unknown 06/19/2024 5:13 AM EDT 06/19/2024 5:40 AM EDT us Trinity Yousif [employer] LAB BLOOD ORDERABLES Final Res ult [facility] [address] [place] [address] * (ABNORMAL) Comprehensive metabolic panel (06/19/2024 5:13 AM EDT) Glucose, Plasma 90 74 - 99 mg/dL 06/19/2024 6:13 AM EDT [facility] BUN, Plasma 5(L) 7 - 21 mg/dL 06/19/2024 6:13 AM EDT [facility] Creatinine, Plasma 0.69 0.60 - 1.10 mg/dL 06/19/2024 6:13 AM EDT [facility] BUN/Creatinine Ratio 7 06/19/2024 6:13 AM EDT [facility] Sodium, Plasma 130(L) 136 - 145 mmol/L 06/19/2024 6:13 AM EDT [facility] Potassium, Plasma 3.5(L) 3.6 - 4.9 mmol/L 06/19/2024 6:13 AM EDT [facility] Chloride, Plasma 97 97 - 107 mmol/L 06/19/2024 6:13 AM EDT [facility] CO2, Plasma 24 22 - 29 mmol/L 06/19/2024 6:13 AM EDT [facility] Anion Gap 9 6 - 16 mmol/L 06/19/2024 6:13 AM EDT [facility] Total Calcium, Plasma 8.1(L) 8.9 - 10.2 mg/dL 06/19/2024 6:13 AM EDT [facility] Total Protein 6.5 6.3 - 7.9 g/dL 06/19/2024 6:13 AM EDT [facility] Albumin, Plasma 2.5(L) 3.5 - 5.2 g/dL 06/19/2024 6:13 AM EDT [facility] AST, Plasma 37(H) 10 - 35 U/L 06/19/2024 6:13 AM EDT [facility] ALT, Plasma 62(H) 10 - 35 U/L 06/19/2024 6:13 AM EDT [facility] Alkaline Phosphatase, Plasma 153(H) 35 - 104 U/L 06/19/2024 6:13 AM EDT [facility] Total Bilirubin, Plasma 0.2 0.2 - 1.1 mg/dL 06/19/2024 6:13 AM EDT [facility] eGFRcr 103.3 mL/min/1.7 3m*2 06/19/2024 6:13 AM EDT [facility] Comment:Reported eGFRcr in m L/min/1.73m2 is based the CKD-EPI 2020 equation that does not use a race coefficient. Blood Venous blood specimen / Unknown Venipuncture / Unknown 06/19/2024 5:13 AM EDT 06/19/2024 5:40 AM EDT us Trinity Yousif APRN LAB BLOOD ORDERABLES Final Res ult [facility] [address] [place] [address] * (ABNORMAL) Hemogram (CBC) (06/19/2024 5:13 AM EDT) WBC Count 11.65(H) 3.70 - 10.30 10*3/uL LAB HEMATOLOGY METHOD 06/19/2024 5:51 AM EDT [facility] RBC Count 3.67(L) 3.90 - 5.20 10*6/uL LAB HEMATOLOGY METHOD 06/19/2024 5:51 AM EDT [facility] HGB 10.7(L) 11.2 - 15.7 g/dL LAB HEMATOLOGY METHOD 06/19/2024 5:51 AM EDT [facility] HCT 33.1(L) 34.0 - 45.0 % LAB HEMATOLOGY METHOD 06/19/2024 5:51 AM EDT [facility] Platelet Count 615(H) 155 - 369 10*3/uL LAB HEMATOLOGY METHOD 06/19/2024 5:51 AM EDT [facility] MCV 90 79 - 98 fL LAB HEMATOLOGY METHOD 06/19/2024 5:51 AM EDT [facility] MCH 29.2 26.0 - 32.0 pg LAB HEMATOLOGY METHOD 06/19/2024 5:51 AM EDT [facility] MCHC 32.3 30.7 - 35.5 g/dL LAB HEMATOLOGY METHOD 06/19/2024 5:51 AM EDT [facility] RDW 14.6(H) 11.5 - 14.5 % LAB HEMATOLOGY METHOD 06/19/2024 5:51 AM EDT [facility] MPV 8.8 8.8 - 12.5 fL LAB HEMATOLOGY METHOD 06/19/2024 5:51 AM EDT [facility] nRBC 0.0 <=0.0 per 100 WBCs LAB HEMATOLOGY METHOD 06/19/2024 5:51 AM EDT [facility] Blood Venous blood specimen / Unknown Venipuncture / Unknown 06/19/2024 5:13 AM EDT 06/19/2024 5:41 AM EDT Trinity Yousif APRN LAB BLOOD ORDERABLES Final Res ult [facility] [address] [place] [address] * XR Abdomen 1 View (06/19/2024 5:08 AM EDT) Anatomical Region Laterality Modality Body Digital Radiogra phy Impressions 06/19/2024 8:19 AM EDT Suspected slight interval decrease in gas-filled dilated small bowel. CRITICAL RESULT: No. COMMUNICATION: Per this written report. Drafted by Orlando Davenport MD on 06/19/2024 8:01 AM Final report signed by Orlando Davenport MD on 06/19/2024 8:19 AM Narrative 06/19/2024 8:19 AM EDT CLINICAL INDICATION: evaluate ileus TECHNIQUE: Supine radiograph of the abdomen. COMPARISON: 06/18/2024 abdominal radiograph FINDINGS: Skin sheridan, cholecystectomy clips, and left para midline lower abdominal/pelvic drainage catheter are redemonstrated. Interval removal of left upper quadrant drain. Persistent distention of the right colon. Interval redistribution of gas within the gas-filled small bowel which overall may be slightly decreased in caliber in the interval. Right abdominal ostomy. Procedure Note Orlando Davenport MD - 06/19/2024 CLINICAL INDICATION: evaluate ileus TECHNIQUE: Supine radiograph of the abdomen. COMPARISON: 06/18/2024 abdominal radiograph FINDINGS: Skin sheridan, cholecystectomy clips, and left para midline lowerabdominal/pelvic drainage catheter are redemonstrated. Interval removal ofleft upper quadrant drain. Persistent distention of the right colon.Interval redistribution of gas within the gas-filled small bowel whichoverall may be slightly decreased in caliber in the interval. Rightabdominal ostomy. IMPRESSION: Suspected slight interval decrease in gas-filled dilated small bowel. CRITICAL RESULT: No. COMMUNICATION: Per this written report. Drafted by Orlando Davenport MD on 06/19/2024 8:01 AM Final report signed by Orlando Davenport MD on 06/19/2024 8:19 AM Trinity Yousif APRN IMG XR PROCEDURES Final Result * XR Abdomen 1 View (06/18/2024 4:43 AM EDT) Anatomical Region Laterality Modality Body Digital Radiogra phy Impressions 06/18/2024 8:43 AM EDT Mild interval worsening of the previously demonstrated changes of ileus. No obvious pneumoperitoneum. Clinical correlation and radiographic follow-up recommended. CRITICAL RESULT: No. COMMUNICATION: Per this written report. Drafted by Gulshan An MD on 06/18/2024 8:43 AM Final report signed by Gulshan An MD on 06/18/2024 8:43 AM Narrative 06/18/2024 8:43 AM EDT CLINICAL INDICATION: evaluate ileus TECHNIQUE: Supine radiograph of the abdomen. COMPARISON: 06/17/2024 FINDINGS: Stable support hardware. Postsurgical changes from recent laparotomy. Mild interval worsening of the previously demonstrated changes of a likely postoperative ileus. No obvious pneumoperitoneum. No other interval change. Procedure Note Gulshan An MD - 06/18/2024 CLINICAL INDICATION: evaluate ileus TECHNIQUE: Supine radiograph of the abdomen. COMPARISON: 06/17/2024 FINDINGS: Stable support hardware. Postsurgical changes from recent laparotomy. Mildinterval worsening of the previously demonstrated changes of a likelypostoperative ileus. No obvious pneumoperitoneum. No other intervalchange. IMPRESSION: Mild interval worsening of the previously demonstrated changes of ileus.No obvious pneumoperitoneum. Clinical correlation and radiographicfollow-up recommended. CRITICAL RESULT: No. COMMUNICATION: Per this written report. Drafted by Gulshan An MD on 06/18/2024 8:43 AM Final report signed by Gulshan An MD on 06/18/2024 8:43 AM Trinity Dayana Yousif [employer] IMG XR PROCEDURES Final Result * XR Chest 1 View (06/18/2024 4:43 AM EDT) Anatomical Region Laterality Modality Chest Digital Radiogra phy Impressions 06/18/2024 9:42 AM EDT Stable exam. CRITICAL RESULT: No. COMMUNICATION: Per this written report. Preliminary report signed by Jayden Sheppard MD on 06/18/2024 9:20 AM By electronically signing this report, I, the attending physician, attest that I have personally reviewed the images/data for the above examination(s) and agree with the final edited report. Drafted by Jayden Sheppard MD on 06/18/2024 9:19 AM Final report signed by Champ Oden MD on 06/18/2024 9:42 AM Narrative 06/18/2024 9:42 AM EDT CLINICAL INDICATION: evaluate lung keene TECHNIQUE: XR CHEST 1 VIEW COMPARISON: 06/17/2024 FINDINGS: Stable cardiac silhouette and mediastinal contours. Unchanged right perihilar linear scarring. No consolidation, large pleural effusion or pneumothorax. Median sternotomy wires. Cholecystectomy clips. Procedure Note Champ Oden MD - 06/18/2024 CLINICAL INDICATION: evaluate lung keene TECHNIQUE: XR CHEST 1 VIEW COMPARISON: 06/17/2024 FINDINGS: Stable cardiac silhouette and mediastinal contours. Unchanged rightperihilar linear scarring. No consolidation, large pleural effusion orpneumothorax. Median sternotomy wires. Cholecystectomy clips. IMPRESSION: Stable exam. CRITICAL RESULT: No. COMMUNICATION: Per this written report. Preliminary report signed by Jayden Sheppard MD on 06/18/2024 9:20 AM By electronically signing this report, I, the attending physician, attestthat I have personally reviewed the images/data for the aboveexamination(s) and agree with the final edited report. Drafted by Jayden Sheppard MD on 06/18/2024 9:19 AM Final report signed by Champ Oden MD on 06/18/2024 9:42 AM us Trinity Yousif APRN IMG XR PROCEDURES Final Result * (ABNORMAL) Magnesium (06/18/2024 2:32 AM EDT) Magnesium, Plasma 1.7(L) 1.9 - 2.4 mg/dL 06/18/2024 3:39 AM EDT [facility] Blood Venous blood specimen / Unknown Venipuncture / Unknown 06/18/2024 2:32 AM EDT 06/18/2024 3:02 AM EDT us Trinity Yousif APRN LAB BLOOD ORDERABLES Final Res ult [facility] [address] [place] [address] * (ABNORMAL) Comprehensive metabolic panel (06/18/2024 2:32 AM EDT) Glucose, Plasma 94 74 - 99 mg/dL 06/18/2024 3:39 AM EDT [facility] BUN, Plasma 4(L) 7 - 21 mg/dL 06/18/2024 3:39 AM EDT [facility] Creatinine, Plasma 0.59(L) 0.60 - 1.10 mg/dL 06/18/2024 3:39 AM EDT [facility] BUN/Creatinine Ratio 7 06/18/2024 3:39 AM EDT [facility] Sodium, Plasma 132(L) 136 - 145 mmol/L 06/18/2024 3:39 AM EDT [facility] Potassium, Plasma 4.1 3.6 - 4.9 mmol/L 06/18/2024 3:39 AM EDT [facility] Chloride, Plasma 96(L) 97 - 107 mmol/L 06/18/2024 3:39 AM EDT [facility] CO2, Plasma 25 22 - 29 mmol/L 06/18/2024 3:39 AM EDT [facility] Anion Gap 11 6 - 16 mmol/L 06/18/2024 3:39 AM EDT [facility] Total Calcium, Plasma 8.3(L) 8.9 - 10.2 mg/dL 06/18/2024 3:39 AM EDT [facility] Total Protein 6.6 6.3 - 7.9 g/dL 06/18/2024 3:39 AM EDT [facility] Albumin, Plasma 2.7(L) 3.5 - 5.2 g/dL 06/18/2024 3:39 AM EDT [facility] AST, Plasma 43(H) 10 - 35 U/L 06/18/2024 3:39 AM EDT [facility] ALT, Plasma 72(H) 10 - 35 U/L 06/18/2024 3:39 AM EDT [facility] Alkaline Phosphatase, Plasma 164(H) 35 - 104 U/L 06/18/2024 3:39 AM EDT [facility] Total Bilirubin, Plasma 0.3 0.2 - 1.1 mg/dL 06/18/2024 3:39 AM EDT [facility] eGFRcr 107.3 mL/min/1.7 3m*2 06/18/2024 3:39 AM EDT [facility] Comment:Reported eGFRcr in m L/min/1.73m2 is based the CKD-EPI 2020 equation that does not use a race coefficient. Blood Venous blood specimen / Unknown Venipuncture / Unknown 06/18/2024 2:32 AM EDT 06/18/2024 3:02 AM EDT us Trinity Anne Yousif [employer] LAB BLOOD ORDERABLES Final Res ult [facility] [address] [place] [address] * (ABNORMAL) Hemogram (CBC) (06/18/2024 2:32 AM EDT) WBC Count 16.58(H) 3.70 - 10.30 10*3/uL LAB HEMATOLOGY METHOD 06/18/2024 3:13 AM EDT [facility] RBC Count 3.79(L) 3.90 - 5.20 10*6/uL LAB HEMATOLOGY METHOD 06/18/2024 3:13 AM EDT [facility] HGB 11.0(L) 11.2 - 15.7 g/dL LAB HEMATOLOGY METHOD 06/18/2024 3:13 AM EDT [facility] HCT 33.7(L) 34.0 - 45.0 % LAB HEMATOLOGY METHOD 06/18/2024 3:13 AM EDT [facility] Platelet Count 565(H) 155 - 369 10*3/uL LAB HEMATOLOGY METHOD 06/18/2024 3:13 AM EDT [facility] MCV 89 79 - 98 fL LAB HEMATOLOGY METHOD 06/18/2024 3:13 AM EDT [facility] MCH 29.0 26.0 - 32.0 pg LAB HEMATOLOGY METHOD 06/18/2024 3:13 AM EDT [facility] MCHC 32.6 30.7 - 35.5 g/dL LAB HEMATOLOGY METHOD 06/18/2024 3:13 AM EDT [facility] RDW 14.7(H) 11.5 - 14.5 % LAB HEMATOLOGY METHOD 06/18/2024 3:13 AM EDT [facility] MPV 8.8 8.8 - 12.5 fL LAB HEMATOLOGY METHOD 06/18/2024 3:13 AM EDT [facility] nRBC 0.0 <=0.0 per 100 WBCs LAB HEMATOLOGY METHOD 06/18/2024 3:13 AM EDT [facility] Blood Venous blood specimen / Unknown Venipuncture / Unknown 06/18/2024 2:32 AM EDT 06/18/2024 3:02 AM EDT us Trinity Yousif APRN LAB BLOOD ORDERABLES Final Res ult [facility] [address] [place] [address] * (ABNORMAL) POCT glucose meter (06/17/2024 8:09 PM EDT) POCT Glucose 145(H) 74 - 99 mg/dL 06/17/2024 8:11 PM EDT [facility] Comment:Accuracy of a glucos e result obtained from a capillary whole blood specimen relies upon adequate, non-compromised capillary blood flow. If the capillary glucose result is not consistent with the patient's clinical signs and symptoms, glucose testing should be repeated with either an arterial or venous sample on the glucometer or sent to the main labortory for testing. Comment 06/17/2024 8:11 PM EDT [facility] Field Hockey Coach ID Mani Vargas 025 8:11 PM EDT [facility] Device ID [id number] 06/17/2024 8:11 PM EDT [facility] Specimen Type POC Capillary 06/17/2024 8:11 PM EDT [facility] Blood Capillary blood specimen / Unknown 06/17/2024 8:09 PM EDT 06/17/2024 8:11 PM EDT us Maite Austin MD LAB POINT OF CARE TE ST DOCKED DEVICE UNSOLICITED RESULTS Final Result [facility] [address] [place] [address] * (ABNORMAL) POCT glucose meter (06/17/2024 4:51 PM EDT) POCT Glucose 118(H) 74 - 99 mg/dL 06/17/2024 7:32 PM EDT [facility] Comment:Accuracy of a glucos e result obtained from a capillary whole blood specimen relies upon adequate, non-compromised capillary blood flow. If the capillary glucose result is not consistent with the patient's clinical signs and symptoms, glucose testing should be repeated with either an arterial or venous sample on the glucometer or sent to the main labortory for testing. Comment 06/17/2024 7:32 PM EDT [facility] Field Hockey Coach ID Brooklyn Goldsmith 06/17/2024 7:32 PM EDT [facility] Device ID [id number] 06/17/2024 7:32 PM EDT [facility] Specimen Type POC Capillary 06/17/2024 7:32 PM EDT [facility] Blood Capillary blood specimen / Unknown 06/17/2024 4:51 PM EDT 06/17/2024 7:32 PM EDT us Maite Austin MD LAB POINT OF CARE TE ST DOCKED DEVICE UNSOLICITED RESULTS Final Result Performing Organization Address City/State/[facility] Co de Phone Number [facility] [address] [place] [address] * XR Abdomen 1 View (06/17/2024 2:52 PM EDT) Anatomical Region Laterality Modality Body Digital Radiogra phy Impressions 06/17/2024 3:00 PM EDT Gas-filled distended segments of large and small bowel in a pattern suggestive of ileus. CRITICAL RESULT: No. COMMUNICATION: Per this written report. Drafted by Yamil Delong MD on 06/17/2024 2:57 PM Final report signed by Yamil Delong MD on 06/17/2024 3:00 PM Narrative 06/17/2024 3:00 PM EDT CLINICAL INDICATION: evaluate ileus TECHNIQUE: Supine radiograph of the abdomen. COMPARISON: Radiograph from June 11, 2024 FINDINGS: Left upper quadrant drain is noted. Gas noted within the gastric fundus. There are gas-filled segments of large and small bowel. Midline laparotomy skin sheridan are noted. Lung bases are clear. Procedure Note Yamil Delong MD - 06/17/2024 CLINICAL INDICATION: evaluate ileus TECHNIQUE: Supine radiograph of the abdomen. COMPARISON: Radiograph from June 11, 2024 FINDINGS: Left upper quadrant drain is noted. Gas noted within the gastric fundus.There are gas-filled segments of large and small bowel. Midline laparotomyskin sheridan are noted. Lung bases are clear. IMPRESSION: Gas-filled distended segments of large and small bowel in a patternsuggestive of ileus. CRITICAL RESULT: No. COMMUNICATION: Per this written report. Drafted by Yamil Delong MD on 06/17/2024 2:57 PM Final report signed by Yamil Delong MD on 06/17/2024 3:00 PM Trinity Yousif [employer] IMG XR PROCEDURES Final Result * POCT glucose meter (06/17/2024 12:00 PM EDT) [facility] POCT Glucose 94 74 - 99 mg/dL 06/17/2024 7:19 PM EDT [facility] Comment:Accuracy of a glucos e result obtained from a capillary whole blood specimen relies upon adequate, non-compromised capillary blood flow. If the capillary glucose result is not consistent with the patient's clinical signs and symptoms, glucose testing should be repeated with either an arterial or venous sample on the glucometer or sent to the main labortory for testing. Comment 06/17/2024 7:19 PM EDT [facility] Field Hockey Coach ID Leonarda Londono 7:19 PM EDT [facility] Device ID [id number] 06/17/2024 7:19 PM EDT [facility] Specimen Type POC Capillary 06/17/2024 7:19 PM EDT [facility] Blood Capillary blood specimen / Unknown 06/17/2024 12:00 PM EDT 06/17/2024 7:19 PM EDT Maite Austin MD LAB POINT OF CARE TE ST DOCKED DEVICE UNSOLICITED RESULTS Final Result [facility] [address] [place] [address] * POCT glucose meter (06/17/2024 7:48 AM EDT) [facility] POCT Glucose 86 74 - 99 mg/dL 06/17/2024 7:17 PM EDT [facility] Comment:Accuracy of a glucos e result obtained from a capillary whole blood specimen relies upon adequate, non-compromised capillary blood flow. If the capillary glucose result is not consistent with the patient's clinical signs and symptoms, glucose testing should be repeated with either an arterial or venous sample on the glucometer or sent to the main labortory for testing. Comment 06/17/2024 7:17 PM EDT [facility] Field Hockey Coach ID Leonarda Londono 7:17 PM EDT [facility] Device ID [id number] 06/17/2024 7:17 PM EDT [facility] Specimen Type POC Capillary 06/17/2024 7:17 PM EDT [facility] Blood Capillary blood specimen / Unknown 06/17/2024 7:48 AM EDT 06/17/2024 7:17 PM EDT Maite Austin MD LAB POINT OF CARE TE ST DOCKED DEVICE UNSOLICITED RESULTS Final Result Performing Organization Address City/State/[facility] Co de Phone Number [facility] [address] [place] [address] * XR Chest 1 View (06/17/2024 5:15 AM EDT) Anatomical Region Laterality Modality Chest Digital Radiogra phy Impressions 06/17/2024 4:32 PM EDT Stable exam CRITICAL RESULT: No. COMMUNICATION: Per this written report. Drafted by Adarsh Richardson MD on 06/17/2024 4:31 PM Final report signed by Adarsh Richardson MD on 06/17/2024 4:32 PM Narrative 06/17/2024 4:32 PM EDT CLINICAL INDICATION: evaluate lung keene TECHNIQUE: XR CHEST 1 VIEW COMPARISON: June 15, 2024 FINDINGS: Interval removal of left upper extremity PICC. Stable cardiac and mediastinal silhouettes post median sternotomy. Low lung volumes. Mild bibasal atelectasis, left greater than right. No pneumothorax. Procedure Note Adarsh Richardson MD - 06/17/2024 CLINICAL INDICATION: evaluate lung keene TECHNIQUE: XR CHEST 1 VIEW COMPARISON: June 15, 2024 FINDINGS: Interval removal of left upper extremity PICC. Stable cardiac andmediastinal silhouettes post median sternotomy. Low lung volumes. Mildbibasal atelectasis, left greater than right. No pneumothorax. IMPRESSION: Stable exam CRITICAL RESULT: No. COMMUNICATION: Per this written report. Drafted by Adarsh Richardson MD on 06/17/2024 4:31 PM Final report signed by Adarsh Richardson MD on 06/17/2024 4:32 PM Trinity Yousif APRN IMG XR PROCEDURES Final Result * (ABNORMAL) Magnesium (06/17/2024 3:53 AM EDT) Magnesium, Plasma 1.8(L) 1.9 - 2.4 mg/dL 06/17/2024 4:36 AM EDT [facility] Blood Venous blood specimen / Unknown Venipuncture / Unknown 06/17/2024 3:53 AM EDT 06/17/2024 4:06 AM EDT Trinity Yousif APRN LAB BLOOD ORDERABLES Final Res ult [facility] [address] [place] [address] * (ABNORMAL) Comprehensive metabolic panel (06/17/2024 3:53 AM EDT) Glucose, Plasma 104(H) 74 - 99 mg/dL 06/17/2024 4:36 AM EDT [facility] BUN, Plasma 4(L) 7 - 21 mg/dL 06/17/2024 4:36 AM EDT [facility] Creatinine, Plasma 0.61 0.60 - 1.10 mg/dL 06/17/2024 4:36 AM EDT [facility] BUN/Creatinine Ratio 7 06/17/2024 4:36 AM EDT [facility] Sodium, Plasma 130(L) 136 - 145 mmol/L 06/17/2024 4:36 AM EDT [facility] Potassium, Plasma 4.2 3.6 - 4.9 mmol/L 06/17/2024 4:36 AM EDT [facility] Chloride, Plasma 95(L) 97 - 107 mmol/L 06/17/2024 4:36 AM EDT [facility] CO2, Plasma 25 22 - 29 mmol/L 06/17/2024 4:36 AM EDT [facility] Anion Gap 10 6 - 16 mmol/L 06/17/2024 4:36 AM EDT [facility] Total Calcium, Plasma 8.3(L) 8.9 - 10.2 mg/dL 06/17/2024 4:36 AM EDT [facility] Total Protein 6.9 6.3 - 7.9 g/dL 06/17/2024 4:36 AM EDT [facility] Albumin, Plasma 2.7(L) 3.5 - 5.2 g/dL 06/17/2024 4:36 AM EDT [facility] AST, Plasma 70(H) 10 - 35 U/L 06/17/2024 4:36 AM EDT [facility] ALT, Plasma 87(H) 10 - 35 U/L 06/17/2024 4:36 AM EDT [facility] Alkaline Phosphatase, Plasma 172(H) 35 - 104 U/L 06/17/2024 4:36 AM EDT [facility] Total Bilirubin, Plasma 0.3 0.2 - 1.1 mg/dL 06/17/2024 4:36 AM EDT [facility] eGFRcr 106.4 mL/min/1.7 3m*2 06/17/2024 4:36 AM EDT [facility] Comment:Reported eGFRcr in m L/min/1.73m2 is based the CKD-EPI 2020 equation that does not use a race coefficient. Blood Venous blood specimen / Unknown Venipuncture / Unknown 06/17/2024 3:53 AM EDT 06/17/2024 4:06 AM EDT us Trinity Yousif APRN LAB BLOOD ORDERABLES Final Res ult [facility] [address] [place] [address] * (ABNORMAL) Hemogram (CBC) (06/17/2024 3:53 AM EDT) WBC Count 12.53(H) 3.70 - 10.30 10*3/uL LAB HEMATOLOGY METHOD 06/17/2024 4:17 AM EDT [facility] RBC Count 3.53(L) 3.90 - 5.20 10*6/uL LAB HEMATOLOGY METHOD 06/17/2024 4:17 AM EDT [facility] HGB 10.4(L) 11.2 - 15.7 g/dL LAB HEMATOLOGY METHOD 06/17/2024 4:17 AM EDT [facility] HCT 31.9(L) 34.0 - 45.0 % LAB HEMATOLOGY METHOD 06/17/2024 4:17 AM EDT [facility] Platelet Count 514(H) 155 - 369 10*3/uL LAB HEMATOLOGY METHOD 06/17/2024 4:17 AM EDT [facility] MCV 90 79 - 98 fL LAB HEMATOLOGY METHOD 06/17/2024 4:17 AM EDT [facility] MCH 29.5 26.0 - 32.0 pg LAB HEMATOLOGY METHOD 06/17/2024 4:17 AM EDT [facility] MCHC 32.6 30.7 - 35.5 g/dL LAB HEMATOLOGY METHOD 06/17/2024 4:17 AM EDT [facility] RDW 14.8(H) 11.5 - 14.5 % LAB HEMATOLOGY METHOD 06/17/2024 4:17 AM EDT [facility] MPV 8.8 8.8 - 12.5 fL LAB HEMATOLOGY METHOD 06/17/2024 4:17 AM EDT [facility] nRBC 0.0 <=0.0 per 100 WBCs LAB HEMATOLOGY METHOD 06/17/2024 4:17 AM EDT [facility] Blood Venous blood specimen / Unknown Venipuncture / Unknown 06/17/2024 3:53 AM EDT 06/17/2024 4:07 AM EDT us Trinity Yousif [employer] LAB BLOOD ORDERABLES Final Res [place] [address] * SEND JOCELYNE MESSAGE (06/16/2024 8:21 PM EDT) Urine Urine specimen obtained by clean catch procedure / Unknown Non-blood Collection / Unknown 06/16/2024 8:21 PM EDT 06/16/2024 8:26 PM EDT us Trinity S Yousif [employer] LAB URINE ORDERABLES Final Res ult Performing Organization Address [facility] [place] [address] * Urine Culture (06/16/2024 8:21 PM EDT) Culture <10,000 CFU/mL Mixed urogenital, fecal, or skin quincy present. 06/18/2024 10:03 AM EDT [facility] Urine Urine specimen obtained by clean catch procedure / Unknown Non-blood Collection / Unknown 06/16/2024 8:21 PM EDT 06/16/2024 8:26 PM EDT Trinity S Yousif [employer] LAB MICROBIOLOGY - GENERAL ORD ERABLES Final Result Performing Organization Address [facility] [place] [address] * Urinalysis Microscopic Examination (06/16/2024 8:21 PM EDT) Urine Urine specimen obtained by clean catch procedure / Unknown Non-blood Collection / Unknown 06/16/2024 8:21 PM EDT 06/16/2024 8:26 PM EDT us Trinity S Yousif [employer] LAB URINE ORDERABLES Final Res ult Performing Organization Address City/[facility] [place] [address] * Urine Francis Panel (06/16/2024 8:21 PM EDT) Extra Sent for Culture 06/16/2024 10:02 PM EDT [facility] Urine Urine specimen obtained by clean catch procedure / Unknown Non-blood Collection / Unknown 06/16/2024 8:21 PM EDT 06/16/2024 8:26 PM EDT us Trinity Yousif APRN LAB URINE ORDERABLES Final Res ult [facility] [address] [place] [address] * (ABNORMAL) Urinalysis with reflex microscopic (Culture NOT Included) (06/16/2024 8:21 PM EDT) Color, Urine Yellow LAB URINALYSIS - AUTOMATED METHOD 06/16/2024 8:55 PM EDT [facility] Clarity, Urine Clear LAB URINALYSIS - AUTOMATED METHOD 06/16/2024 8:55 PM EDT [facility] Spec [place], Urine 1.013 1.005 - 1.030 LAB URINALYSIS - AUTOMATED METHOD 06/16/2024 8:55 PM EDT [facility] pH, Urine 6.0 5.0 - 8.0 LAB URINALYSIS - AUTOMATED METHOD 06/16/2024 8:55 PM EDT [facility] Protein, Urine Negative Negative mg/dL LAB URINALYSIS - AUTOMATED METHOD 06/16/2024 8:55 PM EDT [facility] Glucose, Urine Negative Negative mg/dL LAB URINALYSIS - AUTOMATED METHOD 06/16/2024 8:55 PM EDT [facility] Ketones, Urine Negative Negative mg/dL LAB URINALYSIS - AUTOMATED METHOD 06/16/2024 8:55 PM EDT [facility] Blood, Urine Negative Negative LAB URINALYSIS - AUTOMATED METHOD 06/16/2024 8:55 PM EDT [facility] Bilirubin, Urine Negative Negative LAB URINALYSIS - AUTOMATED METHOD 06/16/2024 8:55 PM EDT [facility] Urobilinogen, Urine 0.2 0.2 to 1.0 mg/dL LAB URINALYSIS - AUTOMATED METHOD 06/16/2024 8:55 PM EDT [facility] Leukocytes, Urine Large(A) Negative LAB URINALYSIS - AUTOMATED METHOD 06/16/2024 8:55 PM EDT [facility] Nitrite, Urine Negative Negative LAB URINALYSIS - AUTOMATED METHOD 06/16/2024 8:55 PM EDT [facility] RBC, Urine 2 0 to 3 /HPF LAB URINALYSIS - AUTOMATED METHOD 06/16/2024 8:55 PM EDT [facility] WBC, Urine >50(A) 0 to 5 /HPF LAB URINALYSIS - AUTOMATED METHOD 06/16/2024 8:55 PM EDT [facility] Squamous Epithelial Cells 11 - 20(A) 0 to 5 /HPF LAB URINALYSIS - AUTOMATED METHOD 06/16/2024 8:55 PM EDT [facility] Hyaline Casts 0 - 2 0 to 5 /LPF LAB URINALYSIS - AUTOMATED METHOD 06/16/2024 8:55 PM EDT [facility] Bacteria, Urine Present Negative LAB URINALYSIS - AUTOMATED METHOD 06/16/2024 8:55 PM EDT [facility] Renal Tubular Cells Present Absent 06/16/2024 8:55 PM EDT [facility] Transitional Epithelial Cells Present Absent 06/16/2024 8:55 PM EDT [facility] Yeast (Budding and/or Pseudohyphae) Present(A) Absent 06/16/2024 8:55 PM EDT [facility] Urine Urine specimen obtained by clean catch procedure / Unknown Non-blood Collection / Unknown 06/16/2024 8:21 PM EDT 06/16/2024 8:26 PM EDT Narrative [facility] - 06/16/2024 8:55 PM EDT Performed by manual method us Trinity Yousif APRN LAB URINE ORDERABLES Final Res ult [facility] [address] [place] [address] * Magnesium (06/16/2024 4:07 AM EDT) Magnesium, Plasma 2.0 1.9 - 2.4 mg/dL 06/16/2024 4:59 AM EDT [facility] Blood Venous blood specimen / Unknown Venipuncture / Unknown 06/16/2024 4:07 AM EDT 06/16/2024 4:29 AM EDT us Trinity Anne Yousif [employer] LAB BLOOD ORDERABLES Final Res ult [facility] [address] [place] [address] * (ABNORMAL) Comprehensive metabolic panel (06/16/2024 4:07 AM EDT) Glucose, Plasma 93 74 - 99 mg/dL 06/16/2024 4:59 AM EDT [facility] BUN, Plasma 7 7 - 21 mg/dL 06/16/2024 4:59 AM EDT [facility] Creatinine, Plasma 0.57(L) 0.60 - 1.10 mg/dL 06/16/2024 4:59 AM EDT [facility] BUN/Creatinine Ratio 12 06/16/2024 4:59 AM EDT [facility] Sodium, Plasma 134(L) 136 - 145 mmol/L 06/16/2024 4:59 AM EDT [facility] Potassium, Plasma 3.6 3.6 - 4.9 mmol/L 06/16/2024 4:59 AM EDT [facility] Chloride, Plasma 98 97 - 107 mmol/L 06/16/2024 4:59 AM EDT [facility] CO2, Plasma 26 22 - 29 mmol/L 06/16/2024 4:59 AM EDT [facility] Anion Gap 10 6 - 16 mmol/L 06/16/2024 4:59 AM EDT [facility] Total Calcium, Plasma 7.9(L) 8.9 - 10.2 mg/dL 06/16/2024 4:59 AM EDT [facility] Total Protein 6.6 6.3 - 7.9 g/dL 06/16/2024 4:59 AM EDT [facility] Albumin, Plasma 2.5(L) 3.5 - 5.2 g/dL 06/16/2024 4:59 AM EDT [facility] AST, Plasma 37(H) 10 - 35 U/L 06/16/2024 4:59 AM EDT [facility] ALT, Plasma 55(H) 10 - 35 U/L 06/16/2024 4:59 AM EDT [facility] Alkaline Phosphatase, Plasma 170(H) 35 - 104 U/L 06/16/2024 4:59 AM EDT [facility] Total Bilirubin, Plasma 0.3 0.2 - 1.1 mg/dL 06/16/2024 4:59 AM EDT [facility] eGFRcr 108.1 mL/min/1.7 3m*2 06/16/2024 4:59 AM EDT [facility] Comment:Reported eGFRcr in m L/min/1.73m2 is based the CKD-EPI 2020 equation that does not use a race coefficient. Blood Venous blood specimen / Unknown Venipuncture / Unknown 06/16/2024 4:07 AM EDT 06/16/2024 4:29 AM EDT us Trinity Yousif [employer] LAB BLOOD ORDERABLES Final Res ult [facility] [address] [place] [address] * (ABNORMAL) Hemogram (CBC) (06/16/2024 4:07 AM EDT) WBC Count 9.35 3.70 - 10.30 10*3/uL LAB HEMATOLOGY METHOD 06/16/2024 4:37 AM EDT [facility] RBC Count 3.36(L) 3.90 - 5.20 10*6/uL LAB HEMATOLOGY METHOD 06/16/2024 4:37 AM EDT [facility] HGB 10.2(L) 11.2 - 15.7 g/dL LAB HEMATOLOGY METHOD 06/16/2024 4:37 AM EDT [facility] HCT 30.1(L) 34.0 - 45.0 % LAB HEMATOLOGY METHOD 06/16/2024 4:37 AM EDT [facility] Platelet Count 470(H) 155 - 369 10*3/uL LAB HEMATOLOGY METHOD 06/16/2024 4:37 AM EDT [facility] MCV 90 79 - 98 fL LAB HEMATOLOGY METHOD 06/16/2024 4:37 AM EDT [facility] MCH 30.4 26.0 - 32.0 pg LAB HEMATOLOGY METHOD 06/16/2024 4:37 AM EDT [facility] MCHC 33.9 30.7 - 35.5 g/dL LAB HEMATOLOGY METHOD 06/16/2024 4:37 AM EDT [facility] RDW 14.9(H) 11.5 - 14.5 % LAB HEMATOLOGY METHOD 06/16/2024 4:37 AM EDT [facility] MPV 9.0 8.8 - 12.5 fL LAB HEMATOLOGY METHOD 06/16/2024 4:37 AM EDT [facility] nRBC 0.0 <=0.0 per 100 WBCs LAB HEMATOLOGY METHOD 06/16/2024 4:37 AM EDT [facility] Blood Venous blood specimen / Unknown Venipuncture / Unknown 06/16/2024 4:07 AM EDT 06/16/2024 4:28 AM EDT us Trinity Yousif [employer] LAB BLOOD ORDERABLES Final Res ult [facility] [address] [place] [address] * XR Hip Right 2 or 3 Views (06/15/2024 9:47 AM EDT) Anatomical Region Laterality Modality Lower Extremities, Hip Right Digital R adiography Impressions 06/15/2024 10:23 AM EDT No acute bony findings. CRITICAL RESULT: No. COMMUNICATION: Per this written report. Drafted by Sim Powers MD on 06/15/2024 10:22 AM Final report signed by Sim Powers MD on 06/15/2024 10:23 AM Narrative 06/15/2024 10:23 AM EDT CLINICAL INDICATION: hip pain (fall yesterday) TECHNIQUE: XR HIP RIGHT 2 OR 3 VIEWS COMPARISON: CT scan 06/01/2024 FINDINGS: Brain bulb projects over the left proximal femur limiting evaluation. Overlying stool, soft tissue, bowel gas limits evaluation. Within limitations no displaced fracture. The femoral head appears well-positioned within the acetabulum on the right. Right greater trochanteric enthesopathy. Procedure Note Sim Powers MD - 06/15/2024 CLINICAL INDICATION: hip pain (fall yesterday) TECHNIQUE: XR HIP RIGHT 2 OR 3 VIEWS COMPARISON: CT scan 06/01/2024 FINDINGS: Brain bulb projects over the left proximal femur limiting evaluation.Overlying stool, soft tissue, bowel gas limits evaluation. Withinlimitations no displaced fracture. The femoral head appearswell-positioned within the acetabulum on the right. Right greatertrochanteric enthesopathy. IMPRESSION: No acute bony findings. CRITICAL RESULT: No. COMMUNICATION: Per this written report. Drafted by Sim Powers MD on 06/15/2024 10:22 AM Final report signed by Sim Powers MD on 06/15/2024 10:23 AM Trinity Anne Yousif [employer] IMG XR PROCEDURES Final Result * XR Chest 1 View (06/15/2024 9:47 AM EDT) Anatomical Region Laterality Modality Chest Digital Radiogra phy Impressions 06/15/2024 10:38 AM EDT No significant interval change. CRITICAL RESULT: No. COMMUNICATION: Per this written report. By electronically signing this report, I, the attending physician, attest that I have personally reviewed the images/data for the above examination(s) and agree with the final edited report. Drafted by Db Rodríguez MD on 06/15/2024 10:07 AM Final report signed by Pb Yadav MD on 06/15/2024 10:38 AM Narrative 06/15/2024 10:38 AM EDT CLINICAL INDICATION: evaluate lung keene TECHNIQUE: XR CHEST 1 VIEW COMPARISON: Chest radiograph from 06/11/2024 FINDINGS: Stable projection of the left upper extremity PICC. Redemonstrate postsurgical changes of prior median sternotomy. Partially imaged drain projecting over the left upper quadrant of the abdomen. Mediastinal and cardiac contours are stable. No new consolidation, pulmonary edema, pleural effusion or pneumothorax. Procedure Note Pb Yadav MD - 06/15/2024 CLINICAL INDICATION: evaluate lung keene TECHNIQUE: XR CHEST 1 VIEW COMPARISON: Chest radiograph from 06/11/2024 FINDINGS: Stable projection of the left upper extremity PICC. Redemonstratepostsurgical changes of prior median sternotomy. Partially imaged drainprojecting over the left upper quadrant of the abdomen. Mediastinal andcardiac contours are stable. No new consolidation, pulmonary edema,pleural effusion or pneumothorax. IMPRESSION: No significant interval change. CRITICAL RESULT: No. COMMUNICATION: Per this written report. By electronically signing this report, I, the attending physician, baron I have personally reviewed the images/data for the aboveexamination(s) and agree with the final edited report. Drafted by Db Rodríguez MD on 06/15/2024 10:07 AM Final report signed by Pb Yadav MD on 06/15/2024 10:38 AM Trinity Yousif APRN IMG XR PROCEDURES Final Result * (ABNORMAL) Prealbumin (06/15/2024 4:49 AM EDT) Prealbumin, Plasma 13.3(L) 20.0 - 41.0 mg/dL 06/15/2024 8:27 AM EDT [facility] Blood Venous blood specimen / Unknown Venipuncture / Unknown 06/15/2024 4:49 AM EDT 06/15/2024 5:28 AM EDT Trinity Yousif APRN LAB BLOOD ORDERABLES Final Res ult Performing Organization Address [facility] Co de Phone Number [facility] [address] [place] [address] * (ABNORMAL) Magnesium (06/15/2024 4:49 AM EDT) Magnesium, Plasma 1.4(L) 1.9 - 2.4 mg/dL 06/15/2024 6:00 AM EDT [facility] Blood Venous blood specimen / Unknown Venipuncture / Unknown 06/15/2024 4:49 AM EDT 06/15/2024 5:28 AM EDT Uriah PHILLIP LAB BLOOD ORDERABLES Final Result Performing Organization Address [facility]/ZIP Co de Phone Number [facility] [address] [place] [address] * (ABNORMAL) Comprehensive metabolic panel (06/15/2024 4:49 AM EDT) Glucose, Plasma 100(H) 74 - 99 mg/dL 06/15/2024 6:00 AM EDT [facility] BUN, Plasma 10 7 - 21 mg/dL 06/15/2024 6:00 AM EDT [facility] Creatinine, Plasma 0.58(L) 0.60 - 1.10 mg/dL 06/15/2024 6:00 AM EDT [facility] BUN/Creatinine Ratio 17 06/15/2024 6:00 AM EDT [facility] Sodium, Plasma 128(L) 136 - 145 mmol/L 06/15/2024 6:00 AM EDT [facility] Potassium, Plasma 3.8 3.6 - 4.9 mmol/L 06/15/2024 6:00 AM EDT [facility] Chloride, Plasma 95(L) 97 - 107 mmol/L 06/15/2024 6:00 AM EDT [facility] CO2, Plasma 25 22 - 29 mmol/L 06/15/2024 6:00 AM EDT [facility] Anion Gap 8 6 - 16 mmol/L 06/15/2024 6:00 AM EDT [facility] Total Calcium, Plasma 8.0(L) 8.9 - 10.2 mg/dL 06/15/2024 6:00 AM EDT [facility] Total Protein 6.4 6.3 - 7.9 g/dL 06/15/2024 6:00 AM EDT [facility] Albumin, Plasma 2.5(L) 3.5 - 5.2 g/dL 06/15/2024 6:00 AM EDT [facility] AST, Plasma 32 10 - 35 U/L 06/15/2024 6:00 AM EDT [facility] ALT, Plasma 59(H) 10 - 35 U/L 06/15/2024 6:00 AM EDT [facility] Alkaline Phosphatase, Plasma 181(H) 35 - 104 U/L 06/15/2024 6:00 AM EDT [facility] Total Bilirubin, Plasma 0.3 0.2 - 1.1 mg/dL 06/15/2024 6:00 AM EDT [facility] eGFRcr 107.7 mL/min/1.7 3m*2 06/15/2024 6:00 AM EDT [facility] Comment:Reported eGFRcr in m L/min/1.73m2 is based the CKD-EPI 2020 equation that does not use a race coefficient. Blood Venous blood specimen / Unknown Venipuncture / Unknown 06/15/2024 4:49 AM EDT 06/15/2024 5:28 AM EDT us Uriah PHILLIP LAB BLOOD ORDERABLES Final Result [facility] [address] [place] [address] * (ABNORMAL) CBC W/O Differential (06/15/2024 4:49 AM EDT) WBC Count 15.65(H) 3.70 - 10.30 10*3/uL LAB HEMATOLOGY METHOD 06/15/2024 5:40 AM EDT [facility] RBC Count 3.49(L) 3.90 - 5.20 10*6/uL LAB HEMATOLOGY METHOD 06/15/2024 5:40 AM EDT [facility] HGB 10.3(L) 11.2 - 15.7 g/dL LAB HEMATOLOGY METHOD 06/15/2024 5:40 AM EDT [facility] HCT 31.8(L) 34.0 - 45.0 % LAB HEMATOLOGY METHOD 06/15/2024 5:40 AM EDT [facility] Platelet Count 437(H) 155 - 369 10*3/uL LAB HEMATOLOGY METHOD 06/15/2024 5:40 AM EDT [facility] MCV 91 79 - 98 fL LAB HEMATOLOGY METHOD 06/15/2024 5:40 AM EDT [facility] MCH 29.5 26.0 - 32.0 pg LAB HEMATOLOGY METHOD 06/15/2024 5:40 AM EDT [facility] MCHC 32.4 30.7 - 35.5 g/dL LAB HEMATOLOGY METHOD 06/15/2024 5:40 AM EDT [facility] RDW 15.0(H) 11.5 - 14.5 % LAB HEMATOLOGY METHOD 06/15/2024 5:40 AM EDT [facility] MPV 9.3 8.8 - 12.5 fL LAB HEMATOLOGY METHOD 06/15/2024 5:40 AM EDT [facility] nRBC 0.0 <=0.0 per 100 WBCs LAB HEMATOLOGY METHOD 06/15/2024 5:40 AM EDT [facility] Blood Venous blood specimen / Unknown Venipuncture / Unknown 06/15/2024 4:49 AM EDT 06/15/2024 5:33 AM EDT Uriah PHILLIP LAB BLOOD ORDERABLES Final Result [facility] [address] [place] [address] * CT Head wo IV Contrast (06/14/2024 8:28 PM EDT) Anatomical Region Laterality Modality Head Computed Tomogra phy Impressions 06/15/2024 8:12 AM EDT No acute intracranial abnormality such as acute large cortical infarction or intracranial hemorrhage. CRITICAL RESULT: No. COMMUNICATION: Per this written report. Drafted by Carlos Prabhakar MD on 06/15/2024 8:07 AM Final report signed by Carlos Prabhakar MD on 06/15/2024 8:12 AM Narrative 06/15/2024 8:12 AM EDT CLINICAL INDICATION: Syncope/presyncope, cerebrovascular cause suspected TECHNIQUE: Spiral axial CT images of the head were obtained without contrast administration. Total DLP (Dose-Length Product): 868.47 mGy.cm. Please note: The reported value represents the total of one or more individual components during the CT acquisition on this date and at this time, and as such, the same value may appear in more than one CT report depending on the interpreting/reporting physicians. COMPARISON: CT head May 18, 2024 FINDINGS: Diagnostic Quality: Adequate. The ventricles and sulci are normal in size. Cavum septa pellucidum and vergae noted There is no acute large cortical infarct, intracranial hemorrhage or large mass on this noncontrast study. Soft Tissues: No significant soft tissue swelling is present. Bilateral lens surgery changes. Skull: There are no calvarial destructive lesions or fractures. Sinuses and Mastoids: The visualized portions of the paranasal sinuses are clear. The mastoid air cells are clear. Procedure Note Carlos Prabhakar MD - 06/15/2024 CLINICAL INDICATION: Syncope/presyncope, cerebrovascular cause suspected TECHNIQUE: Spiral axial CT images of the head were obtained without contrastadministration. Total DLP (Dose-Length Product): 868.47 mGy.cm. Please note: The reportedvalue represents the total of one or more individual components during theCT acquisition on this date and at this time, and as such, the same valuemay appear in more than one CT report depending on theinterpreting/reporting physicians. COMPARISON: CT head May 18, 2024 FINDINGS: Diagnostic Quality: Adequate. The ventricles and sulci are normal in size. Cavum septa pellucidum andvergae noted There is no acute large cortical infarct, intracranial hemorrhage or largemass on this noncontrast study. Soft Tissues: No significant soft tissue swelling is present. Bilaterallens surgery changes. Skull: There are no calvarial destructive lesions or fractures. Sinuses and Mastoids: The visualized portions of the paranasal sinuses areclear. The mastoid air cells are clear. IMPRESSION: No acute intracranial abnormality such as acute large cortical infarctionor intracranial hemorrhage. CRITICAL RESULT: No. COMMUNICATION: Per this written report. Drafted by Carlos Prabhakar MD on 06/15/2024 8:07 AM Final report signed by Carlos Prabhakar MD on 06/15/2024 8:12 AM Uriah PHILLIP IMKeira CT PROCEDURES Final Res ult * (ABNORMAL) Blood gas panel, venous (06/14/2024 12:58 AM EDT) pH, Venous 7.42 7.32 - 7.43 LAB HEMATOLOGY METHOD 06/14/2024 1:14 AM EDT [facility] pCO2, Venous 46 37 - 52 mmHg LAB HEMATOLOGY METHOD 06/14/2024 1:14 AM EDT [facility] pO2, Venous 36 25 - 40 mmHg LAB HEMATOLOGY METHOD 06/14/2024 1:14 AM EDT [facility] SO2, Measured, Venous 66 65 - 80 % LAB HEMATOLOGY METHOD 06/14/2024 1:14 AM EDT [facility] Base Excess, Venous 4.7(H) -2.0 - 3.0 mmol/L LAB HEMATOLOGY METHOD 06/14/2024 1:14 AM EDT [facility] Bicarbonate, Calculated, Venous 30(H) 22 - 26 mmol/L LAB HEMATOLOGY METHOD 06/14/2024 1:14 AM EDT [facility] Hematocrit, Whole Blood 33.3(L) 34.0 - 45.0 % LAB HEMATOLOGY METHOD 06/14/2024 1:14 AM EDT [facility] Sodium, Whole Blood 129(L) 136 - 145 mmol/L LAB HEMATOLOGY METHOD 06/14/2024 1:14 AM EDT [facility] Potassium, Whole Blood 3.6 3.6 - 4.9 mmol/L LAB HEMATOLOGY METHOD 06/14/2024 1:14 AM EDT [facility] Chloride, Whole Blood 93(L) 97 - 107 mmol/L LAB HEMATOLOGY METHOD 06/14/2024 1:14 AM EDT [facility] Glucose, Whole Blood 106(H) 74 - 99 mg/dL LAB HEMATOLOGY METHOD 06/14/2024 1:14 AM EDT [facility] Lactate, Venous, Whole Blood 0.7 0.5 - 2.2 mmol/L LAB HEMATOLOGY METHOD 06/14/2024 1:14 AM EDT [facility] Ionized Calcium, Whole Blood 4.6 4.6 - 5.1 mg/dL LAB HEMATOLOGY METHOD 06/14/2024 1:14 AM EDT [facility] Blood Venous blood specimen / Unknown (Central Line) Existing Catheter / Unknown 06/14/2024 12:58 AM EDT 06/14/2024 1:13 AM EDT us Maite Austin MD LAB BLOOD ORDERABLES Final Resu lt [facility] [address] [place] [address] * (ABNORMAL) CBC W/O Differential (06/14/2024 12:58 AM EDT) WBC Count 21.20(H) 3.70 - 10.30 10*3/uL LAB HEMATOLOGY METHOD 06/14/2024 1:21 AM EDT [facility] RBC Count 3.79(L) 3.90 - 5.20 10*6/uL LAB HEMATOLOGY METHOD 06/14/2024 1:21 AM EDT [facility] HGB 11.1(L) 11.2 - 15.7 g/dL LAB HEMATOLOGY METHOD 06/14/2024 1:21 AM EDT [facility] HCT 33.6(L) 34.0 - 45.0 % LAB HEMATOLOGY METHOD 06/14/2024 1:21 AM EDT [facility] Platelet Count 433(H) 155 - 369 10*3/uL LAB HEMATOLOGY METHOD 06/14/2024 1:21 AM EDT [facility] MCV 89 79 - 98 fL LAB HEMATOLOGY METHOD 06/14/2024 1:21 AM EDT [facility] MCH 29.3 26.0 - 32.0 pg LAB HEMATOLOGY METHOD 06/14/2024 1:21 AM EDT [facility] MCHC 33.0 30.7 - 35.5 g/dL LAB HEMATOLOGY METHOD 06/14/2024 1:21 AM EDT [facility] RDW 14.8(H) 11.5 - 14.5 % LAB HEMATOLOGY METHOD 06/14/2024 1:21 AM EDT [facility] MPV 8.9 8.8 - 12.5 fL LAB HEMATOLOGY METHOD 06/14/2024 1:21 AM EDT [facility] nRBC 0.0 <=0.0 per 100 WBCs LAB HEMATOLOGY METHOD 06/14/2024 1:21 AM EDT [facility] Blood Blood sample taken from central line / Unknown (Central Line) Existing Catheter / Unknown 06/14/2024 12:58 AM EDT 06/14/2024 1:13 AM EDT us Uriah PHILLIP LAB BLOOD ORDERABLES Final Result [facility] [address] [place] [address] * (ABNORMAL) Comprehensive metabolic panel (06/14/2024 12:58 AM EDT) Glucose, Plasma 105(H) 74 - 99 mg/dL 06/14/2024 1:43 AM EDT [facility] BUN, Plasma 13 7 - 21 mg/dL 06/14/2024 1:43 AM EDT [facility] Creatinine, Plasma 0.51(L) 0.60 - 1.10 mg/dL 06/14/2024 1:43 AM EDT [facility] BUN/Creatinine Ratio 25 06/14/2024 1:43 AM EDT [facility] Sodium, Plasma 130(L) 136 - 145 mmol/L 06/14/2024 1:43 AM EDT [facility] Potassium, Plasma 3.7 3.6 - 4.9 mmol/L 06/14/2024 1:43 AM EDT [facility] Chloride, Plasma 94(L) 97 - 107 mmol/L 06/14/2024 1:43 AM EDT [facility] CO2, Plasma 26 22 - 29 mmol/L 06/14/2024 1:43 AM EDT [facility] Anion Gap 10 6 - 16 mmol/L 06/14/2024 1:43 AM EDT [facility] Total Calcium, Plasma 8.5(L) 8.9 - 10.2 mg/dL 06/14/2024 1:43 AM EDT [facility] Total Protein 7.0 6.3 - 7.9 g/dL 06/14/2024 1:43 AM EDT [facility] Albumin, Plasma 2.7(L) 3.5 - 5.2 g/dL 06/14/2024 1:43 AM EDT [facility] AST, Plasma 36(H) 10 - 35 U/L 06/14/2024 1:43 AM EDT [facility] ALT, Plasma 79(H) 10 - 35 U/L 06/14/2024 1:43 AM EDT [facility] Alkaline Phosphatase, Plasma 216(H) 35 - 104 U/L 06/14/2024 1:43 AM EDT [facility] Total Bilirubin, Plasma 0.3 0.2 - 1.1 mg/dL 06/14/2024 1:43 AM EDT [facility] eGFRcr 111.1 mL/min/1.7 3m*2 06/14/2024 1:43 AM EDT [facility] Comment:Reported eGFRcr in m L/min/1.73m2 is based the CKD-EPI 2020 equation that does not use a race coefficient. Blood Blood sample taken from central line / Unknown (Central Line) Existing Catheter / Unknown 06/14/2024 12:58 AM EDT 06/14/2024 1:13 AM EDT Uriah PHILLIP LAB BLOOD ORDERABLES Final Result Performing Organization Address [facility]/ZIP Co de Phone Number [facility] [address] [place] [address] * (ABNORMAL) Magnesium (06/14/2024 12:58 AM EDT) Magnesium, Plasma 1.5(L) 1.9 - 2.4 mg/dL 06/14/2024 1:43 AM EDT [facility] Blood Blood sample taken from central line / Unknown (Central Line) Existing Catheter / Unknown 06/14/2024 12:58 AM EDT 06/14/2024 1:13 AM EDT us Trinity Yousif APRN LAB BLOOD ORDERABLES Final Res ult Performing Organization Address City/[facility]/ZIP Co de Phone Number [facility] [address] [place] [address] * (ABNORMAL) CBC W/O Differential (06/13/2024 12:40 AM EDT) WBC Count 14.79(H) 3.70 - 10.30 10*3/uL LAB HEMATOLOGY METHOD 06/13/2024 1:03 AM EDT [facility] RBC Count 3.35(L) 3.90 - 5.20 10*6/uL LAB HEMATOLOGY METHOD 06/13/2024 1:03 AM EDT [facility] HGB 9.8(L) 11.2 - 15.7 g/dL LAB HEMATOLOGY METHOD 06/13/2024 1:03 AM EDT [facility] HCT 30.5(L) 34.0 - 45.0 % LAB HEMATOLOGY METHOD 06/13/2024 1:03 AM EDT [facility] Platelet Count 409(H) 155 - 369 10*3/uL LAB HEMATOLOGY METHOD 06/13/2024 1:03 AM EDT [facility] MCV 91 79 - 98 fL LAB HEMATOLOGY METHOD 06/13/2024 1:03 AM EDT [facility] MCH 29.3 26.0 - 32.0 pg LAB HEMATOLOGY METHOD 06/13/2024 1:03 AM EDT [facility] MCHC 32.1 30.7 - 35.5 g/dL LAB HEMATOLOGY METHOD 06/13/2024 1:03 AM EDT [facility] RDW 15.0(H) 11.5 - 14.5 % LAB HEMATOLOGY METHOD 06/13/2024 1:03 AM EDT [facility] MPV 9.0 8.8 - 12.5 fL LAB HEMATOLOGY METHOD 06/13/2024 1:03 AM EDT [facility] nRBC 0.0 <=0.0 per 100 WBCs LAB HEMATOLOGY METHOD 06/13/2024 1:03 AM EDT [facility] Blood Blood sample taken from central line / Unknown (Central Line) Existing Catheter / Unknown 06/13/2024 12:40 AM EDT 06/13/2024 12:54 AM EDT Uriah PHILLIP LAB BLOOD ORDERABLES Final Result [facility] [address] [place] [address] * (ABNORMAL) Comprehensive metabolic panel (06/13/2024 12:40 AM EDT) Glucose, Plasma 106(H) 74 - 99 mg/dL 06/13/2024 1:31 AM EDT [facility] BUN, Plasma 6(L) 7 - 21 mg/dL 06/13/2024 1:31 AM EDT [facility] Creatinine, Plasma 0.54(L) 0.60 - 1.10 mg/dL 06/13/2024 1:31 AM EDT [facility] BUN/Creatinine Ratio 11 06/13/2024 1:31 AM EDT [facility] Sodium, Plasma 131(L) 136 - 145 mmol/L 06/13/2024 1:31 AM EDT [facility] Potassium, Plasma 4.0 3.6 - 4.9 mmol/L 06/13/2024 1:31 AM EDT [facility] Chloride, Plasma 96(L) 97 - 107 mmol/L 06/13/2024 1:31 AM EDT [facility] CO2, Plasma 25 22 - 29 mmol/L 06/13/2024 1:31 AM EDT [facility] Anion Gap 10 6 - 16 mmol/L 06/13/2024 1:31 AM EDT [facility] Total Calcium, Plasma 8.0(L) 8.9 - 10.2 mg/dL 06/13/2024 1:31 AM EDT [facility] Total Protein 6.5 6.3 - 7.9 g/dL 06/13/2024 1:31 AM EDT [facility] Albumin, Plasma 2.6(L) 3.5 - 5.2 g/dL 06/13/2024 1:31 AM EDT [facility] AST, Plasma 52(H) 10 - 35 U/L 06/13/2024 1:31 AM EDT [facility] ALT, Plasma 99(H) 10 - 35 U/L 06/13/2024 1:31 AM EDT [facility] Alkaline Phosphatase, Plasma 212(H) 35 - 104 U/L 06/13/2024 1:31 AM EDT [facility] Total Bilirubin, Plasma 0.3 0.2 - 1.1 mg/dL 06/13/2024 1:31 AM EDT [facility] eGFRcr 109.6 mL/min/1.7 3m*2 06/13/2024 1:31 AM EDT [facility] Comment:Reported eGFRcr in m L/min/1.73m2 is based the CKD-EPI 2020 equation that does not use a race coefficient. Blood Blood sample taken from central line / Unknown (Central Line) Existing Catheter / Unknown 06/13/2024 12:40 AM EDT 06/13/2024 12:53 AM EDT us Uriah PHILLIP LAB BLOOD ORDERABLES Final Result [facility] [address] [place] [address] * (ABNORMAL) CBC and differential (06/12/2024 3:24 AM EDT) WBC Count 10.53(H) 3.70 - 10.30 10*3/uL LAB HEMATOLOGY METHOD 06/12/2024 3:43 AM EDT [facility] RBC Count 3.17(L) 3.90 - 5.20 10*6/uL LAB HEMATOLOGY METHOD 06/12/2024 3:43 AM EDT [facility] HGB 9.3(L) 11.2 - 15.7 g/dL LAB HEMATOLOGY METHOD 06/12/2024 3:43 AM EDT [facility] HCT 29.4(L) 34.0 - 45.0 % LAB HEMATOLOGY METHOD 06/12/2024 3:43 AM EDT [facility] Platelet Count 393(H) 155 - 369 10*3/uL LAB HEMATOLOGY METHOD 06/12/2024 3:43 AM EDT [facility] MCV 93 79 - 98 fL LAB HEMATOLOGY METHOD 06/12/2024 3:43 AM EDT [facility] MCH 29.3 26.0 - 32.0 pg LAB HEMATOLOGY METHOD 06/12/2024 3:43 AM EDT [facility] MCHC 31.6 30.7 - 35.5 g/dL LAB HEMATOLOGY METHOD 06/12/2024 3:43 AM EDT [facility] RDW 15.2(H) 11.5 - 14.5 % LAB HEMATOLOGY METHOD 06/12/2024 3:43 AM EDT [facility] MPV 9.1 8.8 - 12.5 fL LAB HEMATOLOGY METHOD 06/12/2024 3:43 AM EDT [facility] nRBC 0.0 <=0.0 per 100 WBCs LAB HEMATOLOGY METHOD 06/12/2024 3:43 AM EDT [facility] Differential Type Automated LAB HEMATOLOGY METHOD 06/12/2024 3:43 AM EDT [facility] Neutrophils % 54 % LAB HEMATOLOGY METHOD 06/12/2024 3:43 AM EDT [facility] Lymphocytes % 28 % LAB HEMATOLOGY METHOD 06/12/2024 3:43 AM EDT [facility] Monocytes % 11 % LAB HEMATOLOGY METHOD 06/12/2024 3:43 AM EDT [facility] Eosinophils % 2 % LAB HEMATOLOGY METHOD 06/12/2024 3:43 AM EDT [facility] Basophils % 1 % LAB HEMATOLOGY METHOD 06/12/2024 3:43 AM EDT [facility] Immature Granulocytes % 4 % LAB HEMATOLOGY METHOD 06/12/2024 3:43 AM EDT [facility] Neutrophils Absolute 5.65 1.60 - 6.10 10*3/uL LAB HEMATOLOGY METHOD 06/12/2024 3:43 AM EDT [facility] Lymphocytes Absolute 2.99 1.20 - 3.90 10*3/uL LAB HEMATOLOGY METHOD 06/12/2024 3:43 AM EDT [facility] Monocytes Absolute 1.11(H) 0.30 - 0.90 10*3/uL LAB HEMATOLOGY METHOD 06/12/2024 3:43 AM EDT [facility] Eosinophils Absolute 0.25 0.00 - 0.50 10*3/uL LAB HEMATOLOGY METHOD 06/12/2024 3:43 AM EDT [facility] Basophils Absolute 0.13(H) 0.00 - 0.10 10*3/uL LAB HEMATOLOGY METHOD 06/12/2024 3:43 AM EDT [facility] Immature Granulocytes Absolute 0.40(H) 0.00 - 0.06 10*3/uL LAB HEMATOLOGY METHOD 06/12/2024 3:43 AM EDT [facility] Blood Blood sample taken from central line / Unknown (Central Line) Existing Catheter / Unknown 06/12/2024 3:24 AM EDT 06/12/2024 3:34 AM EDT [facility] - 06/12/2024 3:43 AM EDT Therapeutic decision making should be based on absolute values, rather than percentages. us Uriah PHILLIP LAB BLOOD ORDERABLES Final Result [facility] [address] [id number] * (ABNORMAL) Comprehensive metabolic panel (06/12/2024 3:24 AM EDT) Glucose, Plasma 93 74 - 99 mg/dL 06/12/2024 4:01 AM EDT [facility] BUN, Plasma 12 7 - 21 mg/dL 06/12/2024 4:01 AM EDT [facility] Creatinine, Plasma 0.59(L) 0.60 - 1.10 mg/dL 06/12/2024 4:01 AM EDT [facility] BUN/Creatinine Ratio 20 06/12/2024 4:01 AM EDT [facility] Sodium, Plasma 129(L) 136 - 145 mmol/L 06/12/2024 4:01 AM EDT [facility] Potassium, Plasma 3.8 3.6 - 4.9 mmol/L 06/12/2024 4:01 AM EDT [facility] Chloride, Plasma 95(L) 97 - 107 mmol/L 06/12/2024 4:01 AM EDT [facility] CO2, Plasma 27 22 - 29 mmol/L 06/12/2024 4:01 AM EDT [facility] Anion Gap 7 6 - 16 mmol/L 06/12/2024 4:01 AM EDT [facility] Total Calcium, Plasma 8.1(L) 8.9 - 10.2 mg/dL 06/12/2024 4:01 AM EDT [facility] Total Protein 6.3 6.3 - 7.9 g/dL 06/12/2024 4:01 AM EDT [facility] Albumin, Plasma 2.5(L) 3.5 - 5.2 g/dL 06/12/2024 4:01 AM EDT [facility] AST, Plasma 58(H) 10 - 35 U/L 06/12/2024 4:01 AM EDT [facility] ALT, Plasma 106(H) 10 - 35 U/L 06/12/2024 4:01 AM EDT [facility] Alkaline Phosphatase, Plasma 229(H) 35 - 104 U/L 06/12/2024 4:01 AM EDT [facility] Total Bilirubin, Plasma 0.3 0.2 - 1.1 mg/dL 06/12/2024 4:01 AM EDT [facility] eGFRcr 107.3 mL/min/1.7 3m*2 06/12/2024 4:01 AM EDT [facility] Comment:Reported eGFRcr in m L/min/1.73m2 is based the CKD-EPI 2020 equation that does not use a race coefficient. Blood Blood sample taken from central line / Unknown (Central Line) Existing Catheter / Unknown 06/12/2024 3:24 AM EDT 06/12/2024 3:33 AM EDT us Uriah PHILLIP LAB BLOOD ORDERABLES Final Result [facility] [address] [place] [address] * XR Abdomen 1 View (06/11/2024 8:34 AM EDT) Anatomical Region Laterality Modality Body Digital Radiogra phy Impressions 06/11/2024 8:41 AM EDT Nonobstructive bowel gas pattern. CRITICAL RESULT: No. COMMUNICATION: Per this written report. Drafted by Yamil Delong MD on 06/11/2024 8:40 AM Final report signed by Yamil Delong MD on 06/11/2024 8:41 AM Narrative 06/11/2024 8:41 AM EDT CLINICAL INDICATION: colectomy TECHNIQUE: Supine radiograph of the abdomen. COMPARISON: Radiograph from June 08, 2024 FINDINGS: Left upper quadrant drain is noted. Right abdominal stoma is noted. Visualized bowel gas is normal in caliber. No free gas. Procedure Note Yamil Delong MD - 06/11/2024 CLINICAL INDICATION: colectomy TECHNIQUE: Supine radiograph of the abdomen. COMPARISON: Radiograph from June 08, 2024 FINDINGS: Left upper quadrant drain is noted. Right abdominal stoma is noted.Visualized bowel gas is normal in caliber. No free gas. IMPRESSION: Nonobstructive bowel gas pattern. CRITICAL RESULT: No. COMMUNICATION: Per this written report. Drafted by Yamil Delong MD on 06/11/2024 8:40 AM Final report signed by Yamil Delong MD on 06/11/2024 8:41 AM Uriah PHILLIP IMG XR PROCEDURES Final Res ult * XR Chest 1 View (06/11/2024 8:34 AM EDT) Anatomical Region Laterality Modality Chest Digital Radiogra phy Impressions 06/11/2024 10:38 AM EDT No significant interval changes. CRITICAL RESULT: No. COMMUNICATION: Per this written report. By electronically signing this report, I, the attending physician, attest that I have personally reviewed the images/data for the above examination(s) and agree with the final edited report. Drafted by Mino Hobbs MD on 06/11/2024 10:05 AM Final report signed by Mary Phelps MD on 06/11/2024 10:38 AM Narrative 06/11/2024 10:38 AM EDT CLINICAL INDICATION: post cabg TECHNIQUE: XR CHEST 1 VIEW COMPARISON: June 09, 2024 FINDINGS: Left upper extremity PICC line in place with similar position compared to the prior study. Stable cardiomediastinal silhouette. No new consolidation. No pneumothorax or pleural effusion. Procedure Note Mary Phelps MD - 06/11/2024 CLINICAL INDICATION: post cabg TECHNIQUE: XR CHEST 1 VIEW COMPARISON: June 09, 2024 FINDINGS: Left upper extremity PICC line in place with similar position compared tothe prior study. Stable cardiomediastinal silhouette. No newconsolidation. No pneumothorax or pleural effusion. IMPRESSION: No significant interval changes. CRITICAL RESULT: No. COMMUNICATION: Per this written report. By electronically signing this report, I, the attending physician, attestthat I have personally reviewed the images/data for the aboveexamination(s) and agree with the final edited report. Drafted by Mino Hobbs MD on 06/11/2024 10:05 AM Final report signed by Mary Phelps MD on 06/11/2024 10:38 AM Uriah PHILLIP IMG XR PROCEDURES Final Res ult * (ABNORMAL) WBC Differential (06/11/2024 4:32 AM EDT) Differential Type Automated LAB HEMATOLOGY METHOD 06/11/2024 8:40 AM EDT [facility] Neutrophils % 63 % LAB HEMATOLOGY METHOD 06/11/2024 8:40 AM EDT [facility] Lymphocytes % 23 % LAB HEMATOLOGY METHOD 06/11/2024 8:40 AM EDT [facility] Monocytes % 8 % LAB HEMATOLOGY METHOD 06/11/2024 8:40 AM EDT [facility] Eosinophils % 2 % LAB HEMATOLOGY METHOD 06/11/2024 8:40 AM EDT [facility] Basophils % 1 % LAB HEMATOLOGY METHOD 06/11/2024 8:40 AM EDT [facility] Immature Granulocytes % 3 % LAB HEMATOLOGY METHOD 06/11/2024 8:40 AM EDT [facility] Immature Granulocytes Absolute 0.43(H) 0.00 - 0.06 10*3/uL LAB HEMATOLOGY METHOD 06/11/2024 8:40 AM EDT [facility] Neutrophils Absolute 10.15(H) 1.60 - 6.10 10*3/uL LAB HEMATOLOGY METHOD 06/11/2024 8:40 AM EDT [facility] Lymphocytes Absolute 3.53 1.20 - 3.90 10*3/uL LAB HEMATOLOGY METHOD 06/11/2024 8:40 AM EDT [facility] Monocytes Absolute 1.18(H) 0.30 - 0.90 10*3/uL LAB HEMATOLOGY METHOD 06/11/2024 8:40 AM EDT [facility] Basophils Absolute 0.15(H) 0.00 - 0.10 10*3/uL LAB HEMATOLOGY METHOD 06/11/2024 8:40 AM EDT [facility] Eosinophils Absolute 0.25 0.00 - 0.50 10*3/uL LAB HEMATOLOGY METHOD 06/11/2024 8:40 AM EDT [facility] Blood Venous blood specimen / Unknown 06/11/2024 4:32 AM EDT 06/11/2024 4:32 AM EDT Uriah PHILLIP LAB BLOOD ORDERABLES Final Result Performing Organization Address [facility] Co de Phone Number [facility] [address] [place] [address] * (ABNORMAL) Procalcitonin (06/11/2024 4:32 AM EDT) Procalcitonin, Plasma 0.10(H) <0.09 ng/mL 06/11/2024 8:43 AM EDT [facility] Blood Venous blood specimen / Unknown 06/11/2024 4:32 AM EDT 06/11/2024 4:32 AM EDT Narrative [facility] - 06/11/2024 8:43 AM EDT Procalcitonin concentrations in healthy individuals are <0.09 ng/mL. Published data support the following interpretive risk assessment: An elevated procalcitonin result does not always indicate sepsis. Various non-infectious conditions are known to increase procalcitonin. Results should be considered in the context of clinical symptoms and other laboratory tests. Procalcitonin >2.0 ng/mL: Concentrations >2.0 ng/mL on the first day of ICU admission are associated with a higher risk of progression to severe sepsis and/or septic shock. The change in PCT over time may help predict 28 day mortality risk. Please consult www.gnmdam-whp-[email or web address] for more information. Test performed at [facility], [facility]. Uriah PHILLIP LAB BLOOD ORDERABLES Final Result Performing Organization Address [facility]/ZIP Co de Phone Number [facility] [address] [place] [address] * Lavender Top (06/11/2024 4:32 AM EDT) Extra Hold for add-ons 06/11/2024 7:02 AM EDT [facility] Comment:Auto resulted. Blood Venous blood specimen / Unknown 06/11/2024 4:32 AM EDT 06/11/2024 4:32 AM EDT us Maite Austin MD LAB BLOOD ORDERABLES Final Resu lt Performing Organization Address City/[facility]/ZIP Co de Phone Number [facility] [address] [place] [address] * Light Green Top (06/11/2024 4:32 AM EDT) [facility] Extra Hold for add-ons 06/11/2024 7:02 AM EDT [facility] Comment:Auto resulted. Blood Venous blood specimen / Unknown 06/11/2024 4:32 AM EDT 06/11/2024 4:32 AM EDT us Maite Austin MD LAB BLOOD ORDERABLES Final Resu lt Performing Organization Address [facility] de Phone Number [facility] [address] [place] [address] * POCT glucose meter (06/10/2024 5:56 AM EDT) [facility] POCT Glucose 91 74 - 99 mg/dL 06/10/2024 7:29 AM EDT [facility] Comment:Accuracy of a glucos e result obtained from a capillary whole blood specimen relies upon adequate, non-compromised capillary blood flow. If the capillary glucose result is not consistent with the patient's clinical signs and symptoms, glucose testing should be repeated with either an arterial or venous sample on the glucometer or sent to the main labortory for testing. Comment 06/10/2024 7:29 AM EDT [facility] Field Hockey Coach ID Yakybekhushboo Valerie 06/10/2024 7:29 AM EDT [facility] Device ID [id number] 06/10/2024 7:29 AM EDT [facility] Specimen Type POC Capillary 06/10/2024 7:29 AM EDT [facility] Blood Capillary blood specimen / Unknown 06/10/2024 5:56 AM EDT 06/10/2024 7:29 AM EDT us Maite Austin MD LAB POINT OF CARE TE ST DOCKED DEVICE UNSOLICITED RESULTS Final Result Performing Organization Address City/[facility]/ZIP Co de Phone Number [facility] [address] [place] [address] * POCT glucose meter (06/10/2024 5:09 AM EDT) [facility] POCT Glucose 78 74 - 99 mg/dL 06/10/2024 5:10 AM EDT [facility] Comment:Accuracy of a glucos e result obtained from a capillary whole blood specimen relies upon adequate, non-compromised capillary blood flow. If the capillary glucose result is not consistent with the patient's clinical signs and symptoms, glucose testing should be repeated with either an arterial or venous sample on the glucometer or sent to the main labortory for testing. Comment 06/10/2024 5:10 AM EDT [facility] Field Hockey Coach ID Katelyn Parker 025 5:10 AM EDT [facility] Device ID [id number] 06/10/2024 5:10 AM EDT [facility] Specimen Type POC Capillary 06/10/2024 5:10 AM EDT [facility] Blood Capillary blood specimen / Unknown 06/10/2024 5:09 AM EDT 06/10/2024 5:10 AM EDT us Maite Austin MD LAB POINT OF CARE TE ST DOCKED DEVICE UNSOLICITED RESULTS Final Result Performing Organization Address City/[facility]/ZIP Co de Phone Number [facility] [address] [place] [address] * (ABNORMAL) Comprehensive Metabolic Panel, Plasma (06/10/2024 4:28 AM EDT) [facility] Glucose, Plasma 76 74 - 99 mg/dL 06/10/2024 6:10 AM EDT [facility] BUN, Plasma 9 7 - 21 mg/dL 06/10/2024 6:10 AM EDT [facility] Creatinine, Plasma 0.53(L) 0.60 - 1.10 mg/dL 06/10/2024 6:10 AM EDT [facility] BUN/Creatinine Ratio 17 06/10/2024 6:10 AM EDT [facility] Sodium, Plasma 131(L) 136 - 145 mmol/L 06/10/2024 6:10 AM EDT [facility] Potassium, Plasma 4.1 3.6 - 4.9 mmol/L 06/10/2024 6:10 AM EDT [facility] Chloride, Plasma 97 97 - 107 mmol/L 06/10/2024 6:10 AM EDT [facility] CO2, Plasma 26 22 - 29 mmol/L 06/10/2024 6:10 AM EDT [facility] Anion Gap 8 6 - 16 mmol/L 06/10/2024 6:10 AM EDT [facility] Total Calcium, Plasma 8.4(L) 8.9 - 10.2 mg/dL 06/10/2024 6:10 AM EDT [facility] Total Protein 6.7 6.3 - 7.9 g/dL 06/10/2024 6:10 AM EDT [facility] Albumin, Plasma 2.7(L) 3.5 - 5.2 g/dL 06/10/2024 6:10 AM EDT [facility] AST, Plasma 80(H) 10 - 35 U/L 06/10/2024 6:10 AM EDT [facility] ALT, Plasma 122(H) 10 - 35 U/L 06/10/2024 6:10 AM EDT [facility] Alkaline Phosphatase, Plasma 258(H) 35 - 104 U/L 06/10/2024 6:10 AM EDT [facility] Total Bilirubin, Plasma 0.3 0.2 - 1.1 mg/dL 06/10/2024 6:10 AM EDT [facility] eGFRcr 110.1 mL/min/1.7 3m*2 06/10/2024 6:10 AM EDT [facility] Comment:Reported eGFRcr in m L/min/1.73m2 is based the CKD-EPI 2020 equation that does not use a race coefficient. Blood Venous blood specimen / Unknown Venipuncture / Unknown 06/10/2024 4:28 AM EDT 06/10/2024 5:41 AM EDT us Dulce Alamo APRN LAB BLOOD ORDERABLES Final R esult [facility] [address] [place] [address] * (ABNORMAL) Magnesium, Plasma (06/10/2024 4:28 AM EDT) Magnesium, Plasma 1.8(L) 1.9 - 2.4 mg/dL 06/10/2024 6:10 AM EDT [facility] Blood Venous blood specimen / Unknown Venipuncture / Unknown 06/10/2024 4:28 AM EDT 06/10/2024 5:41 AM EDT us Dulce Alamo [employer] LAB BLOOD ORDERABLES Final R esult [facility] [address] [place] [address] * (ABNORMAL) CBC W/O Differential (06/10/2024 4:28 AM EDT) WBC Count 20.16(H) 3.70 - 10.30 10*3/uL LAB HEMATOLOGY METHOD 06/10/2024 5:54 AM EDT [facility] RBC Count 3.43(L) 3.90 - 5.20 10*6/uL LAB HEMATOLOGY METHOD 06/10/2024 5:54 AM EDT [facility] HGB 10.2(L) 11.2 - 15.7 g/dL LAB HEMATOLOGY METHOD 06/10/2024 5:54 AM EDT [facility] HCT 32.0(L) 34.0 - 45.0 % LAB HEMATOLOGY METHOD 06/10/2024 5:54 AM EDT [facility] Platelet Count 478(H) 155 - 369 10*3/uL LAB HEMATOLOGY METHOD 06/10/2024 5:54 AM EDT [facility] MCV 93 79 - 98 fL LAB HEMATOLOGY METHOD 06/10/2024 5:54 AM EDT [facility] MCH 29.7 26.0 - 32.0 pg LAB HEMATOLOGY METHOD 06/10/2024 5:54 AM EDT [facility] MCHC 31.9 30.7 - 35.5 g/dL LAB HEMATOLOGY METHOD 06/10/2024 5:54 AM EDT [facility] RDW 15.6(H) 11.5 - 14.5 % LAB HEMATOLOGY METHOD 06/10/2024 5:54 AM EDT [facility] MPV 9.2 8.8 - 12.5 fL LAB HEMATOLOGY METHOD 06/10/2024 5:54 AM EDT [facility] nRBC 0.0 <=0.0 per 100 WBCs LAB HEMATOLOGY METHOD 06/10/2024 5:54 AM EDT [facility] Blood Venous blood specimen / Unknown Venipuncture / Unknown 06/10/2024 4:28 AM EDT 06/10/2024 5:43 AM EDT us Dulce Alamo APRN LAB BLOOD ORDERABLES Final R esult Performing Organization Address [facility] Co de Phone Number [facility] [address] [place] [address] * POCT glucose meter (06/09/2024 5:22 PM EDT) POCT Glucose 98 74 - 99 mg/dL 06/09/2024 7:33 PM EDT [facility] Comment:Accuracy of a glucos e result obtained from a capillary whole blood specimen relies upon adequate, non-compromised capillary blood flow. If the capillary glucose result is not consistent with the patient's clinical signs and symptoms, glucose testing should be repeated with either an arterial or venous sample on the glucometer or sent to the main labortory for testing. Comment 06/09/2024 7:33 PM EDT [facility] Field Hockey Coach ID Yonny Urbano 7:33 PM EDT [facility] Device ID [id number] 06/09/2024 7:33 PM EDT [facility] Specimen Type POC Capillary 06/09/2024 7:33 PM EDT [facility] Blood Capillary blood specimen / Unknown 06/09/2024 5:22 PM EDT 06/09/2024 7:33 PM EDT us Maite Austin MD LAB POINT OF CARE TE ST DOCKED DEVICE UNSOLICITED RESULTS Final Result Performing Organization Address City/[facility] Co de Phone Number [facility] [address] [place] [address] * (ABNORMAL) POCT glucose meter (06/09/2024 12:19 PM EDT) POCT Glucose 107(H) 74 - 99 mg/dL 06/09/2024 12:22 PM EDT [facility] Comment:Accuracy of a glucos e result obtained from a capillary whole blood specimen relies upon adequate, non-compromised capillary blood flow. If the capillary glucose result is not consistent with the patient's clinical signs and symptoms, glucose testing should be repeated with either an arterial or venous sample on the glucometer or sent to the main labortory for testing. Comment 06/09/2024 12:22 PM EDT [facility] Field Hockey Coach ID Yonny Urbano 12:22 PM EDT [facility] Device ID [id number] 06/09/2024 12:22 PM EDT [facility] Specimen Type POC Capillary 06/09/2024 12:22 PM EDT [facility] Blood Capillary blood specimen / Unknown 06/09/2024 12:19 PM EDT 06/09/2024 12:22 PM EDT us Maite Austin MD LAB POINT OF CARE TE ST DOCKED DEVICE UNSOLICITED RESULTS Final Result [facility] [address] [place] [address] * XR Chest 1 View (06/09/2024 6:54 AM EDT) Anatomical Region Laterality Modality Chest Digital Radiogra phy Impressions 06/09/2024 10:12 AM EDT No significant interval change. CRITICAL RESULT: No. COMMUNICATION: Per this written report. Drafted by Zahraa Berger MD on 06/09/2024 10:11 AM Final report signed by Zahraa Berger MD on 06/09/2024 10:12 AM Narrative 06/09/2024 10:12 AM EDT CLINICAL INDICATION: s/p CABG TECHNIQUE: Single AP view of chest. COMPARISON: 05/31/2024 FINDINGS: Intact median sternotomy wires. The cardiomediastinal contours are unchanged. No pneumothorax or pleural effusion. No lung consolidation or airspace disease. Mild bibasal atelectatic changes. Mild decreased lung volume. Procedure Note Zahraa Berger MD - 06/09/2024 CLINICAL INDICATION: s/p CABG TECHNIQUE: Single AP view of chest. COMPARISON: 05/31/2024 FINDINGS: Intact median sternotomy wires. The cardiomediastinal contours areunchanged. No pneumothorax or pleural effusion. No lung consolidation orairspace disease. Mild bibasal atelectatic changes. Mild decreased lungvolume. IMPRESSION: No significant interval change. CRITICAL RESULT: No. COMMUNICATION: Per this written report. Drafted by Zahraa Berger MD on 06/09/2024 10:11 AM Final report signed by Zahraa Berger MD on 06/09/2024 10:12 AM us Dulce Alamo [employer] IMG XR PROCEDURES Final Resu lt * (ABNORMAL) POCT glucose meter (06/09/2024 6:33 AM EDT) POCT Glucose 124(H) 74 - 99 mg/dL 06/09/2024 6:35 AM EDT [facility] Comment:Accuracy of a glucos e result obtained from a capillary whole blood specimen relies upon adequate, non-compromised capillary blood flow. If the capillary glucose result is not consistent with the patient's clinical signs and symptoms, glucose testing should be repeated with either an arterial or venous sample on the glucometer or sent to the main labortory for testing. Comment 06/09/2024 6:35 AM EDT [facility] Field Hockey Coach ID Brooklyn Goldsmith 06/09/2024 6:35 AM EDT [facility] Device ID [id number] 06/09/2024 6:35 AM EDT [facility] Specimen Type POC Capillary 06/09/2024 6:35 AM EDT [facility] Blood Capillary blood specimen / Unknown 06/09/2024 6:33 AM EDT 06/09/2024 6:35 AM EDT us Maite Austin MD LAB POINT OF CARE TE ST DOCKED DEVICE UNSOLICITED RESULTS Final Result [facility] [address] [place] [address] * Magnesium, Plasma (06/09/2024 1:27 AM EDT) Magnesium, Plasma 1.9 1.9 - 2.4 mg/dL 06/09/2024 2:04 AM EDT [facility] Blood Venous blood specimen / Unknown Venipuncture / Unknown 06/09/2024 1:27 AM EDT 06/09/2024 1:35 AM EDT us Dulce Alamo [employer] [facility] BLOOD ORDERABLES Final R esult [facility] [address] [place] [address] * (ABNORMAL) Basic Metabolic Panel, Plasma (06/09/2024 1:27 AM EDT) Glucose, Plasma 116(H) 74 - 99 mg/dL 06/09/2024 2:04 AM EDT [facility] BUN, Plasma 11 7 - 21 mg/dL 06/09/2024 2:04 AM EDT [facility] Creatinine, Plasma 0.48(L) 0.60 - 1.10 mg/dL 06/09/2024 2:04 AM EDT [facility] BUN/Creatinine Ratio 23 06/09/2024 2:04 AM EDT [facility] Sodium, Plasma 130(L) 136 - 145 mmol/L 06/09/2024 2:04 AM EDT [facility] Potassium, Plasma 4.3 3.6 - 4.9 mmol/L 06/09/2024 2:04 AM EDT [facility] Chloride, Plasma 98 97 - 107 mmol/L 06/09/2024 2:04 AM EDT [facility] CO2, Plasma 26 22 - 29 mmol/L 06/09/2024 2:04 AM EDT [facility] Anion Gap 6 6 - 16 mmol/L 06/09/2024 2:04 AM EDT [facility] Total Calcium, Plasma 7.9(L) 8.9 - 10.2 mg/dL 06/09/2024 2:04 AM EDT [facility] eGFRcr 112.7 mL/min/1.7 3m*2 06/09/2024 2:04 AM EDT [facility] Comment:Reported eGFRcr in m L/min/1.73m2 is based the CKD-EPI 2020 equation that does not use a race coefficient. Blood Venous blood specimen / Unknown Venipuncture / Unknown 06/09/2024 1:27 AM EDT 06/09/2024 1:35 AM EDT us Dulce Alamo APRN LAB BLOOD ORDERABLES Final R esult [facility] [address] [place] [address] * (ABNORMAL) CBC W/O Differential (06/09/2024 1:27 AM EDT) WBC Count 12.12(H) 3.70 - 10.30 10*3/uL LAB HEMATOLOGY METHOD 06/09/2024 1:43 AM EDT [facility] RBC Count 3.23(L) 3.90 - 5.20 10*6/uL LAB HEMATOLOGY METHOD 06/09/2024 1:43 AM EDT [facility] HGB 9.4(L) 11.2 - 15.7 g/dL LAB HEMATOLOGY METHOD 06/09/2024 1:43 AM EDT [facility] HCT 29.9(L) 34.0 - 45.0 % LAB HEMATOLOGY METHOD 06/09/2024 1:43 AM EDT [facility] Platelet Count 471(H) 155 - 369 10*3/uL LAB HEMATOLOGY METHOD 06/09/2024 1:43 AM EDT [facility] MCV 93 79 - 98 fL LAB HEMATOLOGY METHOD 06/09/2024 1:43 AM EDT [facility] MCH 29.1 26.0 - 32.0 pg LAB HEMATOLOGY METHOD 06/09/2024 1:43 AM EDT [facility] MCHC 31.4 30.7 - 35.5 g/dL LAB HEMATOLOGY METHOD 06/09/2024 1:43 AM EDT [facility] RDW 15.7(H) 11.5 - 14.5 % LAB HEMATOLOGY METHOD 06/09/2024 1:43 AM EDT [facility] MPV 9.1 8.8 - 12.5 fL LAB HEMATOLOGY METHOD 06/09/2024 1:43 AM EDT [facility] nRBC 0.0 <=0.0 per 100 WBCs LAB HEMATOLOGY METHOD 06/09/2024 1:43 AM EDT [facility] Blood Venous blood specimen / Unknown Venipuncture / Unknown 06/09/2024 1:27 AM EDT 06/09/2024 1:35 AM EDT us Dulce Alamo APRN LAB BLOOD ORDERABLES Final R esult Performing Organization Address City/[facility]/ZIP Co de Phone Number [facility] [address] [place] [address] * (ABNORMAL) POCT glucose meter (06/08/2024 11:28 PM EDT) POCT Glucose 113(H) 74 - 99 mg/dL 06/08/2024 11:30 PM EDT [facility] Comment:Accuracy of a glucos e result obtained from a capillary whole blood specimen relies upon adequate, non-compromised capillary blood flow. If the capillary glucose result is not consistent with the patient's clinical signs and symptoms, glucose testing should be repeated with either an arterial or venous sample on the glucometer or sent to the main labortory for testing. Comment 06/08/2024 11:30 PM EDT [facility] Field Hockey Coach ID Brooklyn Goldsmith 06/08/2024 11:30 PM EDT [facility] Device ID [id number] 06/08/2024 11:30 PM EDT [facility] Specimen Type POC Capillary 06/08/2024 11:30 PM EDT [facility] Blood Capillary blood specimen / Unknown 06/08/2024 11:28 PM EDT 06/08/2024 11:30 PM EDT us Maite Austin MD LAB POINT OF CARE TE ST DOCKED DEVICE UNSOLICITED RESULTS Final Result Performing Organization Address City/[facility]/ZIP Co de Phone Number [facility] [address] [place] [address] * (ABNORMAL) POCT glucose meter (06/08/2024 12:14 PM EDT) [facility] POCT Glucose 128(H) 74 - 99 mg/dL 06/08/2024 12:15 PM EDT [facility] Comment:Accuracy of a glucos e result obtained from a capillary whole blood specimen relies upon adequate, non-compromised capillary blood flow. If the capillary glucose result is not consistent with the patient's clinical signs and symptoms, glucose testing should be repeated with either an arterial or venous sample on the glucometer or sent to the main labortory for testing. Comment 06/08/2024 12:15 PM EDT [facility] Field Hockey Coach ID Shira Gutierrez 025 12:15 PM EDT [facility] Device ID [id number] 06/08/2024 12:15 PM EDT [facility] Specimen Type POC Capillary 06/08/2024 12:15 PM EDT [facility] Blood Capillary blood specimen / Unknown 06/08/2024 12:14 PM EDT 06/08/2024 12:15 PM EDT us Maite Austin MD LAB POINT OF CARE TE ST DOCKED DEVICE UNSOLICITED RESULTS Final Result Performing Organization Address City/[facility]/ZIP Co de Phone Number [facility] [address] [place] [address] * Magnesium, Plasma (06/08/2024 5:44 AM EDT) [facility] Magnesium, Plasma 1.9 1.9 - 2.4 mg/dL 06/08/2024 6:25 AM EDT [facility] Blood Venous blood specimen / Unknown Venipuncture / Unknown 06/08/2024 5:44 AM EDT 06/08/2024 5:57 AM EDT us Dulce Alamo APRN LAB BLOOD ORDERABLES Final R esult [facility] [address] [place] [address] * (ABNORMAL) Basic Metabolic Panel, Plasma (06/08/2024 5:44 AM EDT) [facility] Glucose, Plasma 114(H) 74 - 99 mg/dL 06/08/2024 6:25 AM EDT [facility] BUN, Plasma 11 7 - 21 mg/dL 06/08/2024 6:25 AM EDT [facility] Creatinine, Plasma 0.46(L) 0.60 - 1.10 mg/dL 06/08/2024 6:25 AM EDT [facility] BUN/Creatinine Ratio 24 06/08/2024 6:25 AM EDT [facility] Sodium, Plasma 133(L) 136 - 145 mmol/L 06/08/2024 6:25 AM EDT [facility] Potassium, Plasma 3.5(L) 3.6 - 4.9 mmol/L 06/08/2024 6:25 AM EDT [facility] Chloride, Plasma 99 97 - 107 mmol/L 06/08/2024 6:25 AM EDT [facility] CO2, Plasma 27 22 - 29 mmol/L 06/08/2024 6:25 AM EDT [facility] Anion Gap 7 6 - 16 mmol/L 06/08/2024 6:25 AM EDT [facility] Total Calcium, Plasma 7.8(L) 8.9 - 10.2 mg/dL 06/08/2024 6:25 AM EDT [facility] eGFRcr 113.9 mL/min/1.7 3m*2 06/08/2024 6:25 AM EDT [facility] Comment:Reported eGFRcr in m L/min/1.73m2 is based the CKD-EPI 2020 equation that does not use a race coefficient. Blood Venous blood specimen / Unknown Venipuncture / Unknown 06/08/2024 5:44 AM EDT 06/08/2024 5:57 AM EDT us Dulce Alamo APRN LAB BLOOD ORDERABLES Final R esult [facility] [address] [place] [address] * (ABNORMAL) CBC W/O Differential (06/08/2024 5:44 AM EDT) WBC Count 14.57(H) 3.70 - 10.30 10*3/uL LAB HEMATOLOGY METHOD 06/08/2024 6:07 AM EDT [facility] RBC Count 3.08(L) 3.90 - 5.20 10*6/uL LAB HEMATOLOGY METHOD 06/08/2024 6:07 AM EDT [facility] HGB 9.2(L) 11.2 - 15.7 g/dL LAB HEMATOLOGY METHOD 06/08/2024 6:07 AM EDT [facility] HCT 28.4(L) 34.0 - 45.0 % LAB HEMATOLOGY METHOD 06/08/2024 6:07 AM EDT [facility] Platelet Count 492(H) 155 - 369 10*3/uL LAB HEMATOLOGY METHOD 06/08/2024 6:07 AM EDT [facility] MCV 92 79 - 98 fL LAB HEMATOLOGY METHOD 06/08/2024 6:07 AM EDT [facility] MCH 29.9 26.0 - 32.0 pg LAB HEMATOLOGY METHOD 06/08/2024 6:07 AM EDT [facility] MCHC 32.4 30.7 - 35.5 g/dL LAB HEMATOLOGY METHOD 06/08/2024 6:07 AM EDT [facility] RDW 15.6(H) 11.5 - 14.5 % LAB HEMATOLOGY METHOD 06/08/2024 6:07 AM EDT [facility] MPV 8.9 8.8 - 12.5 fL LAB HEMATOLOGY METHOD 06/08/2024 6:07 AM EDT [facility] nRBC 0.0 <=0.0 per 100 WBCs LAB HEMATOLOGY METHOD 06/08/2024 6:07 AM EDT [facility] Blood Venous blood specimen / Unknown Venipuncture / Unknown 06/08/2024 5:44 AM EDT 06/08/2024 5:58 AM EDT us Dulce Alamo APRN LAB BLOOD ORDERABLES Final R esult [facility] [address] [place] [address] * XR Abdomen 1 View (06/08/2024 5:31 AM EDT) Anatomical Region Laterality Modality Body Digital Radiogra phy Impressions 06/08/2024 8:01 AM EDT No gas-filled dilated small bowel. Overall, interval decrease in small bowel distention from 06/05/2024 radiograph. CRITICAL RESULT: No. COMMUNICATION: Per this written report. Drafted by Orlando Davenport MD on 06/08/2024 7:58 AM Final report signed by Orlando Davenport MD on 06/08/2024 8:01 AM Narrative 06/08/2024 8:01 AM EDT CLINICAL INDICATION: s/p colectomy 2/2 ileus & perf after CABG TECHNIQUE: Supine radiograph of the abdomen. COMPARISON: 06/05/2024 abdominal radiograph FINDINGS: Redemonstrated left upper quadrant surgical drain, left subdiaphragmatic locking catheter, cholecystectomy clips, skin sheridan, and right upper quadrant ostomy. No significant gaseous gastric distention. Gas is distributed throughout the small and large bowel. There are distended small and large bowel segments without clear pathologic dilatation. Overall, the degree of bowel distention is decreased in the interval. Procedure Note Orlando Davenport MD - 06/08/2024 CLINICAL INDICATION: s/p colectomy 2/2 ileus & perf after CABG TECHNIQUE: Supine radiograph of the abdomen. COMPARISON: 06/05/2024 abdominal radiograph FINDINGS: Redemonstrated left upper quadrant surgical drain, left subdiaphragmaticlocking catheter, cholecystectomy clips, skin sheridan, and right upperquadrant ostomy. No significant gaseous gastric distention. Gas is distributed throughoutthe small and large bowel. There are distended small and large bowelsegments without clear pathologic dilatation. Overall, the degree of boweldistention is decreased in the interval. IMPRESSION: No gas-filled dilated small bowel. Overall, interval decrease in smallbowel distention from 06/05/2024 radiograph. CRITICAL RESULT: No. COMMUNICATION: Per this written report. Drafted by Orlando Davenport MD on 06/08/2024 7:58 AM Final report signed by Orlando Davenport MD on 06/08/2024 8:01 AM Dulce Alamo [employer] IMG XR PROCEDURES Final Resu lt * POCT glucose meter (06/07/2024 5:13 PM EDT) [facility] POCT Glucose 97 74 - 99 mg/dL 06/07/2024 5:15 PM EDT [facility] Comment:Accuracy of a glucos e result obtained from a capillary whole blood specimen relies upon adequate, non-compromised capillary blood flow. If the capillary glucose result is not consistent with the patient's clinical signs and symptoms, glucose testing should be repeated with either an arterial or venous sample on the glucometer or sent to the main labortory for testing. Comment 06/07/2024 5:15 PM EDT [facility] Field Hockey Coach ID Pamela Tang 06/07/2024 5:15 PM EDT [facility] Device ID [id number] 06/07/2024 5:15 PM EDT [facility] Specimen Type POC Capillary 06/07/2024 5:15 PM EDT [facility] Blood Capillary blood specimen / Unknown 06/07/2024 5:13 PM EDT 06/07/2024 5:15 PM EDT Maite Austin MD LAB POINT OF CARE TE ST DOCKED DEVICE UNSOLICITED RESULTS Final Result Performing Organization Address City/State/[facility] Co de Phone Number [facility] [address] [place] [address] * (ABNORMAL) POCT glucose meter (06/07/2024 2:55 PM EDT) [facility] POCT Glucose 117(H) 74 - 99 mg/dL 06/07/2024 2:56 PM EDT [facility] Comment:Accuracy of a glucos e result obtained from a capillary whole blood specimen relies upon adequate, non-compromised capillary blood flow. If the capillary glucose result is not consistent with the patient's clinical signs and symptoms, glucose testing should be repeated with either an arterial or venous sample on the glucometer or sent to the main labortory for testing. Comment 06/07/2024 2:56 PM EDT [facility] Field Hockey Coach ID Pamela Tang 06/07/2024 2:56 PM EDT [facility] Device ID [id number] 06/07/2024 2:56 PM EDT [facility] Specimen Type POC Capillary 06/07/2024 2:56 PM EDT [facility] Blood Capillary blood specimen / Unknown 06/07/2024 2:55 PM EDT 06/07/2024 2:56 PM EDT us Maite Austin MD LAB POINT OF CARE TE ST DOCKED DEVICE UNSOLICITED RESULTS Final Result Performing Organization Address City/[facility]/ZIP Co de Phone Number [facility] [address] [place] [address] * Magnesium (06/07/2024 6:22 AM EDT) Magnesium, Plasma 1.9 1.9 - 2.4 mg/dL 06/07/2024 6:57 AM EDT [facility] Blood Venous blood specimen / Unknown Venipuncture / Unknown 06/07/2024 6:22 AM EDT 06/07/2024 6:26 AM EDT us Dulce Alamo APRN LAB BLOOD ORDERABLES Final R esult Performing Organization Address City/[facility]/ZIP Co de Phone Number [facility] [address] [place] [address] * (ABNORMAL) Basic Metabolic Panel, Plasma (06/07/2024 6:22 AM EDT) Glucose, Plasma 124(H) 74 - 99 mg/dL 06/07/2024 6:57 AM EDT [facility] BUN, Plasma 13 7 - 21 mg/dL 06/07/2024 6:57 AM EDT [facility] Creatinine, Plasma 0.44(L) 0.60 - 1.10 mg/dL 06/07/2024 6:57 AM EDT [facility] BUN/Creatinine Ratio 30 06/07/2024 6:57 AM EDT [facility] Sodium, Plasma 133(L) 136 - 145 mmol/L 06/07/2024 6:57 AM EDT [facility] Potassium, Plasma 3.7 3.6 - 4.9 mmol/L 06/07/2024 6:57 AM EDT [facility] Chloride, Plasma 99 97 - 107 mmol/L 06/07/2024 6:57 AM EDT [facility] CO2, Plasma 26 22 - 29 mmol/L 06/07/2024 6:57 AM EDT [facility] Anion Gap 8 6 - 16 mmol/L 06/07/2024 6:57 AM EDT [facility] Total Calcium, Plasma 7.8(L) 8.9 - 10.2 mg/dL 06/07/2024 6:57 AM EDT [facility] eGFRcr 115.1 mL/min/1.7 3m*2 06/07/2024 6:57 AM EDT [facility] Comment:Reported eGFRcr in m L/min/1.73m2 is based the CKD-EPI 2020 equation that does not use a race coefficient. Blood Venous blood specimen / Unknown Venipuncture / Unknown 06/07/2024 6:22 AM EDT 06/07/2024 6:26 AM EDT us Dulce Alamo APRN LAB BLOOD ORDERABLES Final R esult [facility] [address] [place] [address] * (ABNORMAL) CBC and Differential (06/07/2024 6:22 AM EDT) WBC Count 16.90(H) 3.70 - 10.30 10*3/uL LAB HEMATOLOGY METHOD 06/07/2024 6:34 AM EDT [facility] RBC Count 3.05(L) 3.90 - 5.20 10*6/uL LAB HEMATOLOGY METHOD 06/07/2024 6:34 AM EDT [facility] HGB 9.0(L) 11.2 - 15.7 g/dL LAB HEMATOLOGY METHOD 06/07/2024 6:34 AM EDT [facility] HCT 28.4(L) 34.0 - 45.0 % LAB HEMATOLOGY METHOD 06/07/2024 6:34 AM EDT [facility] Platelet Count 529(H) 155 - 369 10*3/uL LAB HEMATOLOGY METHOD 06/07/2024 6:34 AM EDT [facility] MCV 93 79 - 98 fL LAB HEMATOLOGY METHOD 06/07/2024 6:34 AM EDT [facility] MCH 29.5 26.0 - 32.0 pg LAB HEMATOLOGY METHOD 06/07/2024 6:34 AM EDT [facility] MCHC 31.7 30.7 - 35.5 g/dL LAB HEMATOLOGY METHOD 06/07/2024 6:34 AM EDT [facility] RDW 15.7(H) 11.5 - 14.5 % LAB HEMATOLOGY METHOD 06/07/2024 6:34 AM EDT [facility] MPV 9.0 8.8 - 12.5 fL LAB HEMATOLOGY METHOD 06/07/2024 6:34 AM EDT [facility] nRBC 0.0 <=0.0 per 100 WBCs LAB HEMATOLOGY METHOD 06/07/2024 6:34 AM EDT [facility] Differential Type Automated LAB HEMATOLOGY METHOD 06/07/2024 6:34 AM EDT [facility] Neutrophils % 75 % LAB HEMATOLOGY METHOD 06/07/2024 6:34 AM EDT [facility] Lymphocytes % 12 % LAB HEMATOLOGY METHOD 06/07/2024 6:34 AM EDT [facility] Monocytes % 8 % LAB HEMATOLOGY METHOD 06/07/2024 6:34 AM EDT [facility] Eosinophils % 1 % LAB HEMATOLOGY METHOD 06/07/2024 6:34 AM EDT [facility] Basophils % 1 % LAB HEMATOLOGY METHOD 06/07/2024 6:34 AM EDT [facility] Immature Granulocytes % 3 % LAB HEMATOLOGY METHOD 06/07/2024 6:34 AM EDT [facility] Neutrophils Absolute 12.84(H) 1.60 - 6.10 10*3/uL LAB HEMATOLOGY METHOD 06/07/2024 6:34 AM EDT [facility] Lymphocytes Absolute 2.01 1.20 - 3.90 10*3/uL LAB HEMATOLOGY METHOD 06/07/2024 6:34 AM EDT [facility] Monocytes Absolute 1.29(H) 0.30 - 0.90 10*3/uL LAB HEMATOLOGY METHOD 06/07/2024 6:34 AM EDT [facility] Eosinophils Absolute 0.14 0.00 - 0.50 10*3/uL LAB HEMATOLOGY METHOD 06/07/2024 6:34 AM EDT [facility] Basophils Absolute 0.14(H) 0.00 - 0.10 10*3/uL LAB HEMATOLOGY METHOD 06/07/2024 6:34 AM EDT [facility] Immature Granulocytes Absolute 0.48(H) 0.00 - 0.06 10*3/uL LAB HEMATOLOGY METHOD 06/07/2024 6:34 AM EDT [facility] Blood Venous blood specimen / Unknown Venipuncture / Unknown 06/07/2024 6:22 AM EDT 06/07/2024 6:26 AM EDT Narrative [facility] - 06/07/2024 6:34 AM EDT Therapeutic decision making should be based on absolute values, rather than percentages. us Dulce Alamo [employer] LAB BLOOD ORDERABLES Final R esult [facility] [address] [place] [address] * (ABNORMAL) POCT glucose meter (06/06/2024 6:25 PM EDT) [facility] POCT Glucose 125(H) 74 - 99 mg/dL 06/06/2024 6:27 PM EDT [facility] Comment:Accuracy of a glucos e result obtained from a capillary whole blood specimen relies upon adequate, non-compromised capillary blood flow. If the capillary glucose result is not consistent with the patient's clinical signs and symptoms, glucose testing should be repeated with either an arterial or venous sample on the glucometer or sent to the main labortory for testing. Comment 06/06/2024 6:27 PM EDT [facility] Field Hockey Coach ID Brooklyn Goldsmith 06/06/2024 6:27 PM EDT [facility] Device ID [id number] 06/06/2024 6:27 PM EDT [facility] Specimen Type POC Capillary 06/06/2024 6:27 PM EDT [facility] Blood Capillary blood specimen / Unknown 06/06/2024 6:25 PM EDT 06/06/2024 6:27 PM EDT Maite Austin MD LAB POINT OF CARE TE ST DOCKED DEVICE UNSOLICITED RESULTS Final Result Performing Organization Address City/[facility] Co de Phone Number [facility] [address] [place] [address] * (ABNORMAL) POCT glucose meter (06/06/2024 11:20 AM EDT) POCT Glucose 135(H) 74 - 99 mg/dL 06/06/2024 11:25 AM EDT [facility] Comment:Accuracy of a glucos e result obtained from a capillary whole blood specimen relies upon adequate, non-compromised capillary blood flow. If the capillary glucose result is not consistent with the patient's clinical signs and symptoms, glucose testing should be repeated with either an arterial or venous sample on the glucometer or sent to the main labortory for testing. Comment 06/06/2024 11:25 AM EDT [facility] Field Hockey Coach ID Henrry Saenz 11:25 AM EDT [facility] Device ID [id number] 06/06/2024 11:25 AM EDT [facility] Specimen Type POC Capillary 06/06/2024 11:25 AM EDT [facility] Blood Capillary blood specimen / Unknown 06/06/2024 11:20 AM EDT 06/06/2024 11:25 AM EDT us Maite Austin MD LAB POINT OF CARE TE ST DOCKED DEVICE UNSOLICITED RESULTS Final Result Performing Organization Address City/[facility] Co de Phone Number [facility] [address] [place] [address] * (ABNORMAL) POCT glucose meter (06/06/2024 5:49 AM EDT) POCT Glucose 129(H) 74 - 99 mg/dL 06/06/2024 5:50 AM EDT [facility] Comment:Accuracy of a glucos e result obtained from a capillary whole blood specimen relies upon adequate, non-compromised capillary blood flow. If the capillary glucose result is not consistent with the patient's clinical signs and symptoms, glucose testing should be repeated with either an arterial or venous sample on the glucometer or sent to the main labortory for testing. Comment 06/06/2024 5:50 AM EDT [facility] Field Hockey Coach ID Ashwin Odom 025 5:50 AM EDT [facility] Device ID [id number] 06/06/2024 5:50 AM EDT [facility] Specimen Type POC Capillary 06/06/2024 5:50 AM EDT [facility] Blood Capillary blood specimen / Unknown 06/06/2024 5:49 AM EDT 06/06/2024 5:50 AM EDT us Maite Austin MD LAB POINT OF CARE TE ST DOCKED DEVICE UNSOLICITED RESULTS Final Result Performing Organization Address City/[facility] Co de Phone Number [facility] [address] [place] [address] * N-Terminal Probnp, Plasma (06/06/2024 4:03 AM EDT) N-Terminal, PROBNP, Plasma 566 0 - 899 pg/mL 06/06/2024 5:20 AM EDT [facility] Blood Venous blood specimen / Unknown Venipuncture / Unknown 06/06/2024 4:03 AM EDT 06/06/2024 4:31 AM EDT us Dulce Alamo APRN LAB BLOOD ORDERABLES Final R esult Performing Organization Address City/[facility] Co de Phone Number [facility] [address] [place] [address] * Magnesium, Plasma (06/06/2024 4:03 AM EDT) Magnesium, Plasma 2.1 1.9 - 2.4 mg/dL 06/06/2024 5:20 AM EDT [facility] Blood Venous blood specimen / Unknown Venipuncture / Unknown 06/06/2024 4:03 AM EDT 06/06/2024 4:31 AM EDT Dulce Alamo APRN LAB BLOOD ORDERABLES Final R esult [facility] [address] [place] [address] * (ABNORMAL) Basic Metabolic Panel, Plasma (06/06/2024 4:03 AM EDT) Glucose, Plasma 406(H) 74 - 99 mg/dL 06/06/2024 5:20 AM EDT [facility] BUN, Plasma 11 7 - 21 mg/dL 06/06/2024 5:20 AM EDT [facility] Creatinine, Plasma 0.50(L) 0.60 - 1.10 mg/dL 06/06/2024 5:20 AM EDT [facility] BUN/Creatinine Ratio 22 06/06/2024 5:20 AM EDT [facility] Sodium, Plasma 130(L) 136 - 145 mmol/L 06/06/2024 5:20 AM EDT [facility] Potassium, Plasma 4.3 3.6 - 4.9 mmol/L 06/06/2024 5:20 AM EDT [facility] Chloride, Plasma 98 97 - 107 mmol/L 06/06/2024 5:20 AM EDT [facility] CO2, Plasma 23 22 - 29 mmol/L 06/06/2024 5:20 AM EDT [facility] Anion Gap 9 6 - 16 mmol/L 06/06/2024 5:20 AM EDT [facility] Total Calcium, Plasma 7.5(L) 8.9 - 10.2 mg/dL 06/06/2024 5:20 AM EDT [facility] eGFRcr 111.6 mL/min/1.7 3m*2 06/06/2024 5:20 AM EDT [facility] Comment:Reported eGFRcr in m L/min/1.73m2 is based the CKD-EPI 2020 equation that does not use a race coefficient. Blood Venous blood specimen / Unknown Venipuncture / Unknown 06/06/2024 4:03 AM EDT 06/06/2024 4:31 AM EDT us Dulce Alamo APRN LAB BLOOD ORDERABLES Final R esult [facility] [address] [place] [address] * (ABNORMAL) CBC W/O Differential (06/06/2024 4:03 AM EDT) WBC Count 24.98(H) 3.70 - 10.30 10*3/uL LAB HEMATOLOGY METHOD 06/06/2024 4:56 AM EDT [facility] RBC Count 3.12(L) 3.90 - 5.20 10*6/uL LAB HEMATOLOGY METHOD 06/06/2024 4:56 AM EDT [facility] HGB 9.2(L) 11.2 - 15.7 g/dL LAB HEMATOLOGY METHOD 06/06/2024 4:56 AM EDT [facility] HCT 29.5(L) 34.0 - 45.0 % LAB HEMATOLOGY METHOD 06/06/2024 4:56 AM EDT [facility] Platelet Count 605(H) 155 - 369 10*3/uL LAB HEMATOLOGY METHOD 06/06/2024 4:56 AM EDT [facility] MCV 95 79 - 98 fL LAB HEMATOLOGY METHOD 06/06/2024 4:56 AM EDT [facility] MCH 29.5 26.0 - 32.0 pg LAB HEMATOLOGY METHOD 06/06/2024 4:56 AM EDT [facility] MCHC 31.2 30.7 - 35.5 g/dL LAB HEMATOLOGY METHOD 06/06/2024 4:56 AM EDT [facility] RDW 15.8(H) 11.5 - 14.5 % LAB HEMATOLOGY METHOD 06/06/2024 4:56 AM EDT [facility] MPV 9.5 8.8 - 12.5 fL LAB HEMATOLOGY METHOD 06/06/2024 4:56 AM EDT [facility] nRBC 0.0 <=0.0 per 100 WBCs LAB HEMATOLOGY METHOD 06/06/2024 4:56 AM EDT [facility] Blood Venous blood specimen / Unknown Venipuncture / Unknown 06/06/2024 4:03 AM EDT 06/06/2024 4:35 AM EDT us Dulce A Zacher [employer] LAB BLOOD ORDERABLES Final R esult Performing Organization Address [facility] Co de Phone Number [facility] [address] [place] [address] * (ABNORMAL) POCT glucose meter (06/05/2024 11:52 PM EDT) POCT Glucose 128(H) 74 - 99 mg/dL 06/05/2024 11:54 PM EDT [facility] Comment:Accuracy of a glucos e result obtained from a capillary whole blood specimen relies upon adequate, non-compromised capillary blood flow. If the capillary glucose result is not consistent with the patient's clinical signs and symptoms, glucose testing should be repeated with either an arterial or venous sample on the glucometer or sent to the main labortory for testing. Comment 06/05/2024 11:54 PM EDT [facility] Field Hockey Coach ID Dina Willis 11:54 PM EDT [facility] Device ID [id number] 06/05/2024 11:54 PM EDT [facility] Specimen Type POC Capillary 06/05/2024 11:54 PM EDT [facility] Blood Capillary blood specimen / Unknown 06/05/2024 11:52 PM EDT 06/05/2024 11:54 PM EDT Maite Austin MD LAB POINT OF CARE TE ST DOCKED DEVICE UNSOLICITED RESULTS Final Result Performing Organization Address [facility] de Phone Number [facility]ALTH[facility] [address] [place] [address] * XR Abdomen 1 View (06/05/2024 4:12 PM EDT) Anatomical Region Laterality Modality Body Digital Radiogra phy Impressions 06/05/2024 5:00 PM EDT Mildly dilated bowel loops are nonspecific and may represent mild ileus. CRITICAL RESULT: No. COMMUNICATION: Per this written report. Drafted by Camila Barth MD on 06/05/2024 5:00 PM Final report signed by Camila Barth MD on 06/05/2024 5:00 PM Narrative 06/05/2024 5:00 PM EDT CLINICAL INDICATION: s/p gastric, colon perf s/p colectomy, ABD pain TECHNIQUE: Supine radiograph of the abdomen. COMPARISON: None. FINDINGS: Drains overlying the upper and lower abdomen with a pigtail catheter overlying the left upper quadrant. Mildly dilated loops of bowel are seen. Procedure Note Camila Barth MD - 06/05/2024 CLINICAL INDICATION: s/p gastric, colon perf s/p colectomy, ABD pain TECHNIQUE: Supine radiograph of the abdomen. COMPARISON: None. FINDINGS: Drains overlying the upper and lower abdomen with a pigtail catheteroverlying the left upper quadrant. Mildly dilated loops of bowel areseen. IMPRESSION: Mildly dilated bowel loops are nonspecific and may represent mild ileus. CRITICAL RESULT: No. COMMUNICATION: Per this written report. Drafted by Camila Barth MD on 06/05/2024 5:00 PM Final report signed by Camila Barth MD on 06/05/2024 5:00 PM us Dulce Alamo [employer] IMG XR PROCEDURES Final Resu lt * (ABNORMAL) POCT glucose meter (06/05/2024 11:59 AM EDT) POCT Glucose 113(H) 74 - 99 mg/dL 06/05/2024 12:01 PM EDT [facility] Comment:Accuracy of a glucos e result obtained from a capillary whole blood specimen relies upon adequate, non-compromised capillary blood flow. If the capillary glucose result is not consistent with the patient's clinical signs and symptoms, glucose testing should be repeated with either an arterial or venous sample on the glucometer or sent to the main labortory for testing. Comment 06/05/2024 12:01 PM EDT [facility] Field Hockey Coach ID Pamela Tang 06/05/2024 12:01 PM EDT [facility] Device ID [id number] 06/05/2024 12:01 PM EDT [facility] Specimen Type POC Capillary 06/05/2024 12:01 PM EDT [facility] Blood Capillary blood specimen / Unknown 06/05/2024 11:59 AM EDT 06/05/2024 12:01 PM EDT us Maite Austin MD LAB POINT OF CARE TE ST DOCKED DEVICE UNSOLICITED RESULTS Final Result Performing Organization Address City/[facility]/ZIP Co de Phone Number [facility] [address] [place] [address] * N-Terminal Probnp, Plasma (06/05/2024 6:12 AM EDT) N-Terminal, PROBNP, Plasma 581 0 - 899 pg/mL 06/05/2024 8:13 AM EDT [facility] Blood Venous blood specimen / Unknown Venipuncture / Unknown 06/05/2024 6:12 AM EDT 06/05/2024 6:45 AM EDT us Dulce Alamo [employer] LAB BLOOD ORDERABLES Final R esult Performing Organization Address City/[facility]/ZIP Co de Phone Number [facility] [address] [place] [address] * Magnesium, Plasma (06/05/2024 6:12 AM EDT) Magnesium, Plasma 2.0 1.9 - 2.4 mg/dL 06/05/2024 7:28 AM EDT [facility] Blood Venous blood specimen / Unknown Venipuncture / Unknown 06/05/2024 6:12 AM EDT 06/05/2024 6:45 AM EDT us Shola Sheridan [employer] LAB BLOOD ORDERABLES Final R esult Performing Organization Address City/[facility]/ZIP Co de Phone Number [facility] [address] [place] [address] * (ABNORMAL) Basic Metabolic Panel, Plasma (06/05/2024 6:12 AM EDT) Glucose, Plasma 125(H) 74 - 99 mg/dL 06/05/2024 7:28 AM EDT [facility] BUN, Plasma 13 7 - 21 mg/dL 06/05/2024 7:28 AM EDT [facility] Creatinine, Plasma 0.50(L) 0.60 - 1.10 mg/dL 06/05/2024 7:28 AM EDT [facility] BUN/Creatinine Ratio 26 06/05/2024 7:28 AM EDT [facility] Sodium, Plasma 133(L) 136 - 145 mmol/L 06/05/2024 7:28 AM EDT [facility] Potassium, Plasma 3.6 3.6 - 4.9 mmol/L 06/05/2024 7:28 AM EDT [facility] Chloride, Plasma 99 97 - 107 mmol/L 06/05/2024 7:28 AM EDT [facility] CO2, Plasma 26 22 - 29 mmol/L 06/05/2024 7:28 AM EDT [facility] Anion Gap 8 6 - 16 mmol/L 06/05/2024 7:28 AM EDT [facility] Total Calcium, Plasma 7.7(L) 8.9 - 10.2 mg/dL 06/05/2024 7:28 AM EDT [facility] eGFRcr 111.6 mL/min/1.7 3m*2 06/05/2024 7:28 AM EDT [facility] Comment:Reported eGFRcr in m L/min/1.73m2 is based the CKD-EPI 2020 equation that does not use a race coefficient. Blood Venous blood specimen / Unknown Venipuncture / Unknown 06/05/2024 6:12 AM EDT 06/05/2024 6:45 AM EDT us Shola Sheridan APRN LAB BLOOD ORDERABLES Final R esult [facility] [address] [place] [address] * (ABNORMAL) CBC W/O Differential (06/05/2024 6:12 AM EDT) WBC Count 19.81(H) 3.70 - 10.30 10*3/uL LAB HEMATOLOGY METHOD 06/05/2024 6:53 AM EDT [facility] RBC Count 3.13(L) 3.90 - 5.20 10*6/uL LAB HEMATOLOGY METHOD 06/05/2024 6:53 AM EDT [facility] HGB 9.3(L) 11.2 - 15.7 g/dL LAB HEMATOLOGY METHOD 06/05/2024 6:53 AM EDT [facility] HCT 29.0(L) 34.0 - 45.0 % LAB HEMATOLOGY METHOD 06/05/2024 6:53 AM EDT [facility] Platelet Count 643(H) 155 - 369 10*3/uL LAB HEMATOLOGY METHOD 06/05/2024 6:53 AM EDT [facility] MCV 93 79 - 98 fL LAB HEMATOLOGY METHOD 06/05/2024 6:53 AM EDT [facility] MCH 29.7 26.0 - 32.0 pg LAB HEMATOLOGY METHOD 06/05/2024 6:53 AM EDT [facility] MCHC 32.1 30.7 - 35.5 g/dL LAB HEMATOLOGY METHOD 06/05/2024 6:53 AM EDT [facility] RDW 15.7(H) 11.5 - 14.5 % LAB HEMATOLOGY METHOD 06/05/2024 6:53 AM EDT [facility] MPV 9.1 8.8 - 12.5 fL LAB HEMATOLOGY METHOD 06/05/2024 6:53 AM EDT [facility] nRBC 0.0 <=0.0 per 100 WBCs LAB HEMATOLOGY METHOD 06/05/2024 6:53 AM EDT [facility] Blood Venous blood specimen / Unknown Venipuncture / Unknown 06/05/2024 6:12 AM EDT 06/05/2024 6:45 AM EDT us Shola Sheridan APRN LAB BLOOD ORDERABLES Final R esult [facility] [address] [place] [address] * (ABNORMAL) POCT glucose meter (06/05/2024 6:05 AM EDT) [facility] POCT Glucose 132(H) 74 - 99 mg/dL 06/05/2024 6:07 AM EDT [facility] Comment:Accuracy of a glucos e result obtained from a capillary whole blood specimen relies upon adequate, non-compromised capillary blood flow. If the capillary glucose result is not consistent with the patient's clinical signs and symptoms, glucose testing should be repeated with either an arterial or venous sample on the glucometer or sent to the main labortory for testing. Comment 06/05/2024 6:07 AM EDT [facility] Field Hockey Coach ID Leonarda Londono 6:07 AM EDT [facility]ALTH[facility]ARE LAB Device ID [id number] 06/05/2024 6:07 AM EDT [facility] Specimen Type POC Capillary 06/05/2024 6:07 AM EDT [facility] Blood Capillary blood specimen / Unknown 06/05/2024 6:05 AM EDT 06/05/2024 6:07 AM EDT Maite Austin MD LAB POINT OF CARE TE ST DOCKED DEVICE UNSOLICITED RESULTS Final Result Performing Organization Address [facility] Co de Phone Number [facility] [address] [place] [address] * (ABNORMAL) POCT glucose meter (06/05/2024 12:01 AM EDT) [facility] POCT Glucose 135(H) 74 - 99 mg/dL 06/05/2024 12:03 AM EDT [facility] Comment:Accuracy of a glucos e result obtained from a capillary whole blood specimen relies upon adequate, non-compromised capillary blood flow. If the capillary glucose result is not consistent with the patient's clinical signs and symptoms, glucose testing should be repeated with either an arterial or venous sample on the glucometer or sent to the main labortory for testing. Comment 06/05/2024 12:03 AM EDT [facility] Field Hockey Coach ID Leonarda oLndono 12:03 AM EDT [facility] Device ID [id number] 06/05/2024 12:03 AM EDT [facility] Specimen Type POC Capillary 06/05/2024 12:03 AM EDT [facility] Blood Capillary blood specimen / Unknown 06/05/2024 12:01 AM EDT 06/05/2024 12:03 AM EDT us Maite Austin MD LAB POINT OF CARE TE ST DOCKED DEVICE UNSOLICITED RESULTS Final Result Performing Organization Address City/[facility]/ZIP Co de Phone Number [facility] [address] [place] [address] * (ABNORMAL) POCT glucose meter (06/04/2024 5:42 PM EDT) [facility] POCT Glucose 106(H) 74 - 99 mg/dL 06/04/2024 5:44 PM EDT [facility] Comment:Accuracy of a glucos e result obtained from a capillary whole blood specimen relies upon adequate, non-compromised capillary blood flow. If the capillary glucose result is not consistent with the patient's clinical signs and symptoms, glucose testing should be repeated with either an arterial or venous sample on the glucometer or sent to the main labortory for testing. Comment 06/04/2024 5:44 PM EDT [facility] Field Hockey Coach ID Alejandra Redd 06/05/19 5:44 PM EDT [facility] Device ID [id number] 06/04/2024 5:44 PM EDT [facility]ALTH[facility]ARE LAB Specimen Type POC Capillary 06/04/2024 5:44 PM EDT [facility] Blood Capillary blood specimen / Unknown 06/04/2024 5:42 PM EDT 06/04/2024 5:44 PM EDT Maite Austin MD LAB POINT OF CARE TE ST DOCKED DEVICE UNSOLICITED RESULTS Final Result [facility] [address] [place] [address] * (ABNORMAL) POCT glucose meter (06/04/2024 12:56 PM EDT) [facility] POCT Glucose 143(H) 74 - 99 mg/dL 06/04/2024 12:58 PM EDT [facility] Comment:Accuracy of a glucos e result obtained from a capillary whole blood specimen relies upon adequate, non-compromised capillary blood flow. If the capillary glucose result is not consistent with the patient's clinical signs and symptoms, glucose testing should be repeated with either an arterial or venous sample on the glucometer or sent to the main labortory for testing. Comment 06/04/2024 12:58 PM EDT [facility] Field Hockey Coach ID Alejandra Redd 06/05/19 12:58 PM EDT [facility] Device ID [id number] 06/04/2024 12:58 PM EDT [facility] Specimen Type POC Capillary 06/04/2024 12:58 PM EDT [facility] Blood Capillary blood specimen / Unknown 06/04/2024 12:56 PM EDT 06/04/2024 12:58 PM EDT Maite Austin MD LAB POINT OF CARE TE ST DOCKED DEVICE UNSOLICITED RESULTS Final Result Performing Organization Address City/[facility]/ZIP Co de Phone Number [facility] [address] [place] [address] * AFB Culture, Non Respiratory Source and Acid Fast Stain (06/04/2024 10:17 AM EDT) AFB Culture No Mycobacterial Growth at 6 Weeks 07/17/2024 11:29 AM EDT [facility] Acid Fast Stain No acid fast bacilli seen 07/17/2024 11:29 AM EDT [facility] Body Fluid Topography unknown / Unknown Non-blood Collection / Unknown 06/04/2024 10:17 AM EDT 06/04/2024 10:55 AM EDT us Maite Austin MD LAB MICROBIOLOGY - GENERAL [facility] Final Result [facility] [address] [place] [address] * (ABNORMAL) Body Fluid Culture and Gram Stain (06/04/2024 10:17 AM EDT) Culture No growth at day 4 2024 7:41 AM EDT [facility] Gram Stain Result No intact cells seen(A) 06/07/2024 7:41 AM EDT [facility] Gram Stain Result No polymorphonuclear leukocytes seen(A) 06/07/2024 7:41 AM EDT [facility] Gram Stain Result No organisms seen(A) 06/07/2024 7:41 AM EDT [facility] Body Fluid Topography unknown / Unknown Non-blood Collection / Unknown 06/04/2024 10:17 AM EDT 06/04/2024 10:55 AM EDT us Maite Austin MD LAB MICROBIOLOGY - GENERAL [place] Final Result [facility] [address] [place] [address] * (ABNORMAL) Body Fluid Cell Count w/ Diff (06/04/2024 10:17 AM EDT) Color, Body fluid Brown LAB HEMATOLOGY METHOD 06/04/2024 5:36 PM EDT [facility] Appearance, Body fluid Cloudy(A) LAB HEMATOLOGY METHOD 06/04/2024 5:36 PM EDT [facility] Volume, Body fluid 5.0 cc LAB HEMATOLOGY METHOD 06/04/2024 5:36 PM EDT [facility] Fluid Container Specimen received in miscellaneous container LAB HEMATOLOGY METHOD 06/04/2024 5:36 PM EDT [facility] Red Blood Cell Count, Body fluid LAB HEMATOLOGY METHOD 06/04/2024 5:36 PM EDT [facility] Comment:Unable to quantitate due to cell deterioration. Total Nucleated Cell Count, Body fluid LAB HEMATOLOGY METHOD 06/04/2024 5:36 PM EDT [facility] Comment:Unable to quantitate due to cell deterioration. Neutrophils %, Body fluid LAB HEMATOLOGY METHOD 06/04/2024 5:36 PM EDT [facility] Comment:Unable to quantitate due to cell deterioration. Lymphocytes %, Body fluid LAB HEMATOLOGY METHOD 06/04/2024 5:36 PM EDT [facility] Comment:Unable to quantitate due to cell deterioration. Monocytes/Macr ophages %, Body fluid LAB HEMATOLOGY METHOD 06/04/2024 5:36 PM EDT [facility] Comment:Unable to quantitate due to cell deterioration. Eosinophils %, Body fluid LAB HEMATOLOGY METHOD 06/04/2024 5:36 PM EDT [facility] Comment:Unable to quantitate due to cell deterioration. Lining/Mesothe lial Cells %, Body fluid LAB HEMATOLOGY METHOD 06/04/2024 5:36 PM EDT [facility] Comment:Unable to quantitate due to cell deterioration. Neutrophils Absolute (PMN), Body fluid LAB HEMATOLOGY METHOD 06/04/2024 5:36 PM EDT [facility] Comment:Unable to quantitate due to cell deterioration. Lymphocytes Absolute, Body fluid LAB HEMATOLOGY METHOD 06/04/2024 5:36 PM EDT [facility] Comment:Unable to quantitate due to cell deterioration. Monocytes/Macr ophages Absolute, Body fluid LAB HEMATOLOGY METHOD 06/04/2024 5:36 PM EDT [facility] Comment:Unable to quantitate due to cell deterioration. Eosinophils Absolute, Body fluid LAB HEMATOLOGY METHOD 06/04/2024 5:36 PM EDT [facility] Comment:Unable to quantitate due to cell deterioration. Basophils Absolute, Body fluid LAB HEMATOLOGY METHOD 06/04/2024 5:36 PM EDT [facility] Comment:Unable to quantitate due to cell deterioration. Lining/Mesothe lial Cells Absolute, Body fluid LAB HEMATOLOGY METHOD 06/04/2024 5:36 PM EDT [facility] Comment:Unable to quantitate due to cell deterioration. Basophils %, Body fluid LAB HEMATOLOGY METHOD 06/04/2024 5:36 PM EDT [facility] Comment:Unable to quantitate due to cell deterioration. Body Fluid Topography unknown / Unknown Non-blood Collection / Unknown 06/04/2024 10:17 AM EDT 06/04/2024 10:51 AM EDT Maite Austin MD LAB BODY FLUIDS AND STOOLS ORDERABLES NO SPECIMEN TYPE/SOURCE Final Result [facility] [address] [place] [address] * CT Guided Drain Placement Peritoneal or Retroperitoneal (06/04/2024 10:16 AM EDT) Anatomical Region Laterality Modality Computed Tomogra phy Impressions 06/04/2024 12:43 PM EDT Successful percutaneous CT guided drain placement left upper quadrant fluid collection. CRITICAL RESULT: No. COMMUNICATION: Per this written report. Drafted by Mayte Elmore MD on 06/04/2024 12:32 PM Final report signed by Mayte Elmore MD on 06/04/2024 12:43 PM Narrative 06/04/2024 12:43 PM EDT CLINICAL INDICATION: 53-year-old female with postsurgical fluid collection in the left upper quadrant extending into the paracolic gutter presenting for drainage PHYSICIANS: tuber machine operator: MAYTE ELMORE MD Secondary facsimile machine operator: None RAD DOSE: Total DLP 413 mGycm MEDICATIONS: IV Conscious sedation with continuous physiologic monitoring was utilized for this procedure using IV Versed, and IV Fentanyl. Additionally, 1% Lidocaine was used for skin and deep subcutaneous local anesthetic DURATION OF CONSCIOUS SEDATION: Time out 1000 close out 1012 COMPLICATIONS: no immediate TECHNIQUE: After discussion of risks and benefits, informed written consent was obtained. Appropriate time out was done to confirm patient identity and planned procedure. Strict hand hygiene protocol was observed. All personnel in the room were attired in surgical hat and mask. The operators were in surgical hat, mask, sterile gloves, and sterile gowns. The site was prepped with 2% chlorhexidine for cutaneous antisepsis followed by sterile barrier draping. The patient was placed supine on the CT table and initial scanning carried out. The skin overlying the planned tract was prepped and draped, and local anesthetic administered. The fluid collection was accessed under CT guidance with a 18-gauge needle and position confirmed. Via the needle and 035 Amplatz wire was placed. Over this wire, an 8 Fr pigtail drain was placed, and the wire removed. Follow-up CT demonstrated good position of the drain. The drain was placed to suction bag drainage, and secured to the skin with 3-0 nonabsorbable and an occlusive dressing. The patient tolerated the procedure well, and was transferred back to the recovery area in good condition. Approximately 10 cc of viscous material was aspirated and sent to the lab for analysis. TOTAL DLP (Dose-Length Product): 413 mGy-cm. Please note: The reported value represents the total of one or more individual components during the CT acquisition on this date and at this time, and as such, the same value may appear in more than one CT report depending on the interpreting/reporting physicians. COMPARISON: None. FINDINGS: See body of report Procedure Note Mayte Elmore MD - 06/04/2024 CLINICAL INDICATION: 53-year-old female with postsurgical fluid collection in the left upperquadrant extending into the paracolic gutter presenting for drainage PHYSICIANS: tuber machine operator: MAYTE ELMORE MD Secondary facsimile machine operator: None RAD DOSE: Total DLP 413 mGycm MEDICATIONS: IV Conscious sedation with continuous physiologic monitoringwas utilized for this procedure using IV Versed, and IV Fentanyl.Additionally, 1% Lidocaine was used for skin and deep subcutaneous localanesthetic DURATION OF CONSCIOUS SEDATION: Time out 1000 close out 1012 COMPLICATIONS: no immediate TECHNIQUE: After discussion of risks and benefits, informed written consent wasobtained. Appropriate time out was done to confirm patient identity andplanned procedure. Strict hand hygiene protocol was observed. All personnel in the room wereattired in surgical hat and mask. The operators were in surgical hat,mask, sterile gloves, and sterile gowns. The site was prepped with 2%chlorhexidine for cutaneous antisepsis followed by sterile barrierdraping. The patient was placed supine on the CT table and initial scanning carriedout. The skin overlying the planned tract was prepped and draped, andlocal anesthetic administered. The fluid collection was accessed under CTguidance with a 18-gauge needle and position confirmed. Via the needleand 035 Amplatz wire was placed. Over this wire, an 8 Fr pigtail drain wasplaced, and the wire removed. Follow-up CT demonstrated good position ofthe drain. The drain was placed to suction bag drainage, and secured tothe skin with 3-0 nonabsorbable and an occlusive dressing. The patienttolerated the procedure well, and was transferred [facility]. Approximately 10 cc of viscous material was aspirated and sent to the labfor analysis. TOTAL DLP (Dose-Length Product): 413 mGy-cm. Please note: The reportedvalue represents the total of one or more individual components during theCT acquisition on this date and at this time, and as such, the same valuemay appear in more than one CT report depending on theinterpreting/reporting physicians. COMPARISON: None. FINDINGS: See body of report IMPRESSION: Successful percutaneous CT guided drain placement left upper quadrantfluid collection. CRITICAL RESULT: No. COMMUNICATION: Per this written report. Drafted by Mayte Elmore MD on 06/04/2024 12:32 PM Final report signed by Mayte Elmore MD on 06/04/2024 12:43 PM us Lorena Phillips AUTOMOTIVE PORTER IMG CT PROCEDURES Final Resu lt * Magnesium, Plasma (06/04/2024 5:56 AM EDT) Magnesium, Plasma 2.1 1.9 - 2.4 mg/dL 06/04/2024 7:14 AM EDT [facility] Blood Venous blood specimen / Unknown Venipuncture / Unknown 06/04/2024 5:56 AM EDT 06/04/2024 6:44 AM EDT us Shola Sheridan [employer] LAB BLOOD ORDERABLES Final R esult [facility] [address] [place] [address] * (ABNORMAL) Basic Metabolic Panel, Plasma (06/04/2024 5:56 AM EDT) Glucose, Plasma 105(H) 74 - 99 mg/dL 06/04/2024 7:14 AM EDT [facility] BUN, Plasma 12 7 - 21 mg/dL 06/04/2024 7:14 AM EDT [facility] Creatinine, Plasma 0.53(L) 0.60 - 1.10 mg/dL 06/04/2024 7:14 AM EDT [facility] BUN/Creatinine Ratio 23 06/04/2024 7:14 AM EDT [facility] Sodium, Plasma 133(L) 136 - 145 mmol/L 06/04/2024 7:14 AM EDT [facility] Potassium, Plasma 3.8 3.6 - 4.9 mmol/L 06/04/2024 7:14 AM EDT [facility] Chloride, Plasma 101 97 - 107 mmol/L 06/04/2024 7:14 AM EDT [facility] CO2, Plasma 24 22 - 29 mmol/L 06/04/2024 7:14 AM EDT [facility] Anion Gap 8 6 - 16 mmol/L 06/04/2024 7:14 AM EDT [facility] Total Calcium, Plasma 7.7(L) 8.9 - 10.2 mg/dL 06/04/2024 7:14 AM EDT [facility] eGFRcr 110.1 mL/min/1.7 3m*2 06/04/2024 7:14 AM EDT [facility] Comment:Reported eGFRcr in m L/min/1.73m2 is based the CKD-EPI 2020 equation that does not use a race coefficient. Blood Venous blood specimen / Unknown Venipuncture / Unknown 06/04/2024 5:56 AM EDT 06/04/2024 6:44 AM EDT us Shola Sheridan [employer] LAB BLOOD ORDERABLES Final R esult [facility] [address] [place] [address] * (ABNORMAL) CBC W/O Differential (06/04/2024 5:56 AM EDT) WBC Count 22.10(H) 3.70 - 10.30 10*3/uL LAB HEMATOLOGY METHOD 06/04/2024 6:52 AM EDT [facility] RBC Count 3.15(L) 3.90 - 5.20 10*6/uL LAB HEMATOLOGY METHOD 06/04/2024 6:52 AM EDT [facility] HGB 9.4(L) 11.2 - 15.7 g/dL LAB HEMATOLOGY METHOD 06/04/2024 6:52 AM EDT [facility] HCT 29.3(L) 34.0 - 45.0 % LAB HEMATOLOGY METHOD 06/04/2024 6:52 AM EDT [facility] Platelet Count 716(H) 155 - 369 10*3/uL LAB HEMATOLOGY METHOD 06/04/2024 6:52 AM EDT [facility] MCV 93 79 - 98 fL LAB HEMATOLOGY METHOD 06/04/2024 6:52 AM EDT [facility] MCH 29.8 26.0 - 32.0 pg LAB HEMATOLOGY METHOD 06/04/2024 6:52 AM EDT [facility] MCHC 32.1 30.7 - 35.5 g/dL LAB HEMATOLOGY METHOD 06/04/2024 6:52 AM EDT [facility] RDW 15.5(H) 11.5 - 14.5 % LAB HEMATOLOGY METHOD 06/04/2024 6:52 AM EDT [facility] MPV 9.4 8.8 - 12.5 fL LAB HEMATOLOGY METHOD 06/04/2024 6:52 AM EDT [facility] nRBC 0.0 <=0.0 per 100 WBCs LAB HEMATOLOGY METHOD 06/04/2024 6:52 AM EDT [facility] Blood Venous blood specimen / Unknown Venipuncture / Unknown 06/04/2024 5:56 AM EDT 06/04/2024 6:44 AM EDT us Shola Sheridan [employer] LAB BLOOD ORDERABLES Final R esult Performing Organization Address City/[facility]/ZIP Co de Phone Number [facility] [address] [place] [address] * (ABNORMAL) POCT glucose meter (06/03/2024 11:08 PM EDT) POCT Glucose 133(H) 74 - 99 mg/dL 06/03/2024 11:12 PM EDT [facility] Comment:Accuracy of a glucos e result obtained from a capillary whole blood specimen relies upon adequate, non-compromised capillary blood flow. If the capillary glucose result is not consistent with the patient's clinical signs and symptoms, glucose testing should be repeated with either an arterial or venous sample on the glucometer or sent to the main labortory for testing. Comment 06/03/2024 11:12 PM EDT [facility] Field Hockey Coach ID Sam, [place] 025 11:12 PM EDT [facility] Device ID [id number] 06/03/2024 11:12 PM EDT [facility] Specimen Type POC Capillary 06/03/2024 11:12 PM EDT [facility] Blood Capillary blood specimen / Unknown 06/03/2024 11:08 PM EDT 06/03/2024 11:12 PM EDT us Maite Austin MD LAB POINT OF CARE TE ST DOCKED DEVICE UNSOLICITED RESULTS Final Result Performing Organization Address City/[facility]/ZIP Co de Phone Number [facility] [address] [place] [address] * (ABNORMAL) POCT glucose meter (06/03/2024 5:04 PM EDT) [facility] POCT Glucose 119(H) 74 - 99 mg/dL 06/03/2024 5:06 PM EDT [facility] Comment:Accuracy of a glucos e result obtained from a capillary whole blood specimen relies upon adequate, non-compromised capillary blood flow. If the capillary glucose result is not consistent with the patient's clinical signs and symptoms, glucose testing should be repeated with either an arterial or venous sample on the glucometer or sent to the main labortory for testing. Comment 06/03/2024 5:06 PM EDT [facility] Field Hockey Coach ID Isabel Tangn 06/03/2024 5:06 PM EDT [facility] Device ID [id number] 06/03/2024 5:06 PM EDT [facility] Specimen Type POC Capillary 06/03/2024 5:06 PM EDT [facility] Blood Capillary blood specimen / Unknown 06/03/2024 5:04 PM EDT 06/03/2024 5:06 PM EDT us Maite Austin MD LAB POINT OF CARE TE ST DOCKED DEVICE UNSOLICITED RESULTS Final Result Performing Organization Address City/State/[facility] Co de Phone Number [facility] [address] [place] [address] * (ABNORMAL) POCT glucose meter (06/03/2024 11:48 AM EDT) [facility] POCT Glucose 123(H) 74 - 99 mg/dL 06/03/2024 11:50 AM EDT [facility] Comment:Accuracy of a glucos e result obtained from a capillary whole blood specimen relies upon adequate, non-compromised capillary blood flow. If the capillary glucose result is not consistent with the patient's clinical signs and symptoms, glucose testing should be repeated with either an arterial or venous sample on the glucometer or sent to the main labortory for testing. Comment 06/03/2024 11:50 AM EDT [facility] Field Hockey Coach ID Pamela Tang 06/03/2024 11:50 AM EDT [facility] Device ID [id number] 06/03/2024 11:50 AM EDT [facility] Specimen Type POC Capillary 06/03/2024 11:50 AM EDT [facility] Blood Capillary blood specimen / Unknown 06/03/2024 11:48 AM EDT 06/03/2024 11:50 AM EDT Maite Austin MD LAB POINT OF CARE TE ST DOCKED DEVICE UNSOLICITED RESULTS Final Result Performing Organization Address City/[facility]/ZIP Co de Phone Number [facility] [address] [place] [address] * (ABNORMAL) POCT glucose meter (06/03/2024 7:54 AM EDT) POCT Glucose 136(H) 74 - 99 mg/dL 06/03/2024 7:56 AM EDT [facility] Comment:Accuracy of a glucos e result obtained from a capillary whole blood specimen relies upon adequate, non-compromised capillary blood flow. If the capillary glucose result is not consistent with the patient's clinical signs and symptoms, glucose testing should be repeated with either an arterial or venous sample on the glucometer or sent to the main labortory for testing. Comment 06/03/2024 7:56 AM EDT [facility] Field Hockey Coach ID Fernanda De Luna 7:56 AM EDT [facility] Device ID [id number] 06/03/2024 7:56 AM EDT [facility] Specimen Type POC Capillary 06/03/2024 7:56 AM EDT [facility] Blood Capillary blood specimen / Unknown 06/03/2024 7:54 AM EDT 06/03/2024 7:56 AM EDT us Maite Austin MD LAB POINT OF CARE TE ST DOCKED DEVICE UNSOLICITED RESULTS Final Result [facility] [address] [place] [address] * (ABNORMAL) Prealbumin (06/03/2024 1:08 AM EDT) Prealbumin, Plasma 16.8(L) 20.0 - 41.0 mg/dL 06/03/2024 1:49 AM EDT [facility] Blood Venous blood specimen / Unknown Venipuncture / Unknown 06/03/2024 1:08 AM EDT 06/03/2024 1:20 AM EDT Shola Sheridan APRN LAB BLOOD ORDERABLES Final R esult Performing Organization Address City/[facility]/ZIP Co de Phone Number [facility] [address] [place] [address] * Magnesium, Plasma (06/03/2024 1:08 AM EDT) Magnesium, Plasma 2.0 1.9 - 2.4 mg/dL 06/03/2024 1:49 AM EDT [facility] Blood Venous blood specimen / Unknown Venipuncture / Unknown 06/03/2024 1:08 AM EDT 06/03/2024 1:20 AM EDT Shola Sheridan APRN LAB BLOOD ORDERABLES Final R esult Performing Organization Address City/[facility]/ZIP Co de Phone Number [facility] [address] [place] [address] * (ABNORMAL) Basic Metabolic Panel, Plasma (06/03/2024 1:08 AM EDT) Glucose, Plasma 117(H) 74 - 99 mg/dL 06/03/2024 1:49 AM EDT [facility] BUN, Plasma 12 7 - 21 mg/dL 06/03/2024 1:49 AM EDT [facility] Creatinine, Plasma 0.48(L) 0.60 - 1.10 mg/dL 06/03/2024 1:49 AM EDT [facility] BUN/Creatinine Ratio 25 06/03/2024 1:49 AM EDT [facility] Sodium, Plasma 130(L) 136 - 145 mmol/L 06/03/2024 1:49 AM EDT [facility] Potassium, Plasma 3.3(L) 3.6 - 4.9 mmol/L 06/03/2024 1:49 AM EDT [facility] Chloride, Plasma 98 97 - 107 mmol/L 06/03/2024 1:49 AM EDT [facility] CO2, Plasma 23 22 - 29 mmol/L 06/03/2024 1:49 AM EDT [facility] Anion Gap 9 6 - 16 mmol/L 06/03/2024 1:49 AM EDT [facility] Total Calcium, Plasma 7.7(L) 8.9 - 10.2 mg/dL 06/03/2024 1:49 AM EDT [facility] eGFRcr 112.7 mL/min/1.7 3m*2 06/03/2024 1:49 AM EDT [facility] Comment:Reported eGFRcr in m L/min/1.73m2 is based the CKD-EPI 2020 equation that does not use a race coefficient. Blood Venous blood specimen / Unknown Venipuncture / Unknown 06/03/2024 1:08 AM EDT 06/03/2024 1:20 AM EDT us Shola Sheridan APRN LAB BLOOD ORDERABLES Final R esult [facility] [address] [place] [address] * (ABNORMAL) CBC W/O Differential (06/03/2024 1:08 AM EDT) WBC Count 20.40(H) 3.70 - 10.30 10*3/uL LAB HEMATOLOGY METHOD 06/03/2024 1:27 AM EDT [facility] RBC Count 3.12(L) 3.90 - 5.20 10*6/uL LAB HEMATOLOGY METHOD 06/03/2024 1:27 AM EDT [facility] HGB 9.2(L) 11.2 - 15.7 g/dL LAB HEMATOLOGY METHOD 06/03/2024 1:27 AM EDT [facility] HCT 28.8(L) 34.0 - 45.0 % LAB HEMATOLOGY METHOD 06/03/2024 1:27 AM EDT [facility] Platelet Count 689(H) 155 - 369 10*3/uL LAB HEMATOLOGY METHOD 06/03/2024 1:27 AM EDT [facility] MCV 92 79 - 98 fL LAB HEMATOLOGY METHOD 06/03/2024 1:27 AM EDT [facility] MCH 29.5 26.0 - 32.0 pg LAB HEMATOLOGY METHOD 06/03/2024 1:27 AM EDT [facility] MCHC 31.9 30.7 - 35.5 g/dL LAB HEMATOLOGY METHOD 06/03/2024 1:27 AM EDT [facility] RDW 15.6(H) 11.5 - 14.5 % LAB HEMATOLOGY METHOD 06/03/2024 1:27 AM EDT [facility] MPV 9.3 8.8 - 12.5 fL LAB HEMATOLOGY METHOD 06/03/2024 1:27 AM EDT [facility] nRBC 0.0 <=0.0 per 100 WBCs LAB HEMATOLOGY METHOD 06/03/2024 1:27 AM EDT [facility] Blood Venous blood specimen / Unknown Venipuncture / Unknown 06/03/2024 1:08 AM EDT 06/03/2024 1:19 AM EDT Shola Sheridan [employer] LAB BLOOD ORDERABLES Final R esult [facility] [address] [place] [address] * (ABNORMAL) POCT glucose meter (06/02/2024 5:54 PM EDT) [facility] POCT Glucose 113(H) 74 - 99 mg/dL 06/02/2024 5:59 PM EDT [facility] Comment:Accuracy of a glucos e result obtained from a capillary whole blood specimen relies upon adequate, non-compromised capillary blood flow. If the capillary glucose result is not consistent with the patient's clinical signs and symptoms, glucose testing should be repeated with either an arterial or venous sample on the glucometer or sent to the main labortory for testing. Comment 06/02/2024 5:59 PM EDT [facility] Field Hockey Coach ID Yonny Urbano 5:59 PM EDT [facility] Device ID [id number] 06/02/2024 5:59 PM EDT [facility] Specimen Type POC Capillary 06/02/2024 5:59 PM EDT [facility] Blood Capillary blood specimen / Unknown 06/02/2024 5:54 PM EDT 06/02/2024 5:59 PM EDT Maite Austin MD LAB POINT OF CARE TE ST DOCKED DEVICE UNSOLICITED RESULTS Final Result Performing Organization Address City/[facility] Co de Phone Number [facility] [address] [place] [address] * (ABNORMAL) POCT glucose meter (06/02/2024 12:39 PM EDT) [facility] POCT Glucose 107(H) 74 - 99 mg/dL 06/02/2024 12:42 PM EDT [facility] Comment:Accuracy of a glucos e result obtained from a capillary whole blood specimen relies upon adequate, non-compromised capillary blood flow. If the capillary glucose result is not consistent with the patient's clinical signs and symptoms, glucose testing should be repeated with either an arterial or venous sample on the glucometer or sent to the main labortory for testing. Comment 06/02/2024 12:42 PM EDT [facility] Field Hockey Coach ID Yonny Urbano 12:42 PM EDT [facility] Device ID [id number] 06/02/2024 12:42 PM EDT [facility] Specimen Type POC Capillary 06/02/2024 12:42 PM EDT [facility] Blood Capillary blood specimen / Unknown 06/02/2024 12:39 PM EDT 06/02/2024 12:42 PM EDT us Maite Austin MD LAB POINT OF CARE TE ST DOCKED DEVICE UNSOLICITED RESULTS Final Result Performing Organization Address City/[facility]/ZIP Co de Phone Number [facility] [address] [place] [address] * (ABNORMAL) Basic metabolic panel (06/02/2024 7:08 AM EDT) Pathologist [facility] Glucose, Plasma 111(H) 74 - 99 mg/dL 06/02/2024 8:10 AM EDT [facility] BUN, Plasma 13 7 - 21 mg/dL 06/02/2024 8:10 AM EDT [facility] Creatinine, Plasma 0.60 0.60 - 1.10 mg/dL 06/02/2024 8:10 AM EDT [facility] BUN/Creatinine Ratio 22 06/02/2024 8:10 AM EDT [facility] Sodium, Plasma 130(L) 136 - 145 mmol/L 06/02/2024 8:10 AM EDT [facility] Potassium, Plasma 3.6 3.6 - 4.9 mmol/L 06/02/2024 8:10 AM EDT [facility] Chloride, Plasma 97 97 - 107 mmol/L 06/02/2024 8:10 AM EDT [facility] CO2, Plasma 21(L) 22 - 29 mmol/L 06/02/2024 8:10 AM EDT [facility] Anion Gap 12 6 - 16 mmol/L 06/02/2024 8:10 AM EDT [facility] Total Calcium, Plasma 7.9(L) 8.9 - 10.2 mg/dL 06/02/2024 8:10 AM EDT [facility] eGFRcr 106.8 mL/min/1.7 3m*2 06/02/2024 8:10 AM EDT [facility] Comment:Reported eGFRcr in m L/min/1.73m2 is based the CKD-EPI 2020 equation that does not use a race coefficient. Blood Venous blood specimen / Unknown Venipuncture / Unknown 06/02/2024 7:08 AM EDT 06/02/2024 7:42 AM EDT us Maite Austin MD LAB BLOOD ORDERABLES Final Resu lt [facility] [address] [place] [address] * (ABNORMAL) Renal Function Panel, Plasma (06/02/2024 1:02 AM EDT) Glucose, Plasma 507(HH) 74 - 99 mg/dL 06/02/2024 1:47 AM EDT [facility] BUN, Plasma 11 7 - 21 mg/dL 06/02/2024 1:47 AM EDT [facility] Creatinine, Plasma 0.60 0.60 - 1.10 mg/dL 06/02/2024 1:47 AM EDT [facility] BUN/Creatinine Ratio 18 06/02/2024 1:47 AM EDT [facility] Sodium, Plasma 125(L) 136 - 145 mmol/L 06/02/2024 1:47 AM EDT [facility] Potassium, Plasma 4.8 3.6 - 4.9 mmol/L 06/02/2024 1:47 AM EDT [facility] Chloride, Plasma 93(L) 97 - 107 mmol/L 06/02/2024 1:47 AM EDT [facility] CO2, Plasma 20(L) 22 - 29 mmol/L 06/02/2024 1:47 AM EDT [facility] Anion Gap 12 6 - 16 mmol/L 06/02/2024 1:47 AM EDT [facility] Total Calcium, Plasma 7.9(L) 8.9 - 10.2 mg/dL 06/02/2024 1:47 AM EDT [facility] Phosphorus, Plasma 5.8(H) 2.5 - 4.5 mg/dL 06/02/2024 1:47 AM EDT [facility] Albumin, Plasma 2.2(L) 3.5 - 5.2 g/dL 06/02/2024 1:47 AM EDT [facility] eGFRcr 106.8 mL/min/1.7 3m*2 06/02/2024 1:47 AM EDT [facility] Comment:Reported eGFRcr in m L/min/1.73m2 is based the CKD-EPI 2020 equation that does not use a race coefficient. Blood Venous blood specimen / Unknown Venipuncture / Unknown 06/02/2024 1:02 AM EDT 06/02/2024 1:16 AM EDT us Lora Llanes APRN LAB BLOOD ORDERABLES Final Result [facility] [address] [place] [address] * Magnesium, Plasma (06/02/2024 1:02 AM EDT) Magnesium, Plasma 2.3 1.9 - 2.4 mg/dL 06/02/2024 1:47 AM EDT [facility] Blood Venous blood specimen / Unknown Venipuncture / Unknown 06/02/2024 1:02 AM EDT 06/02/2024 1:16 AM EDT us Maite Austin MD LAB BLOOD ORDERABLES Final Resu lt [facility] [address] [place] [address] * (ABNORMAL) CBC and Differential (06/02/2024 1:02 AM EDT) WBC Count 33.90(H) 3.70 - 10.30 10*3/uL LAB HEMATOLOGY METHOD 06/02/2024 3:00 AM EDT [facility] RBC Count 3.08(L) 3.90 - 5.20 10*6/uL LAB HEMATOLOGY METHOD 06/02/2024 3:00 AM EDT [facility] HGB 9.2(L) 11.2 - 15.7 g/dL LAB HEMATOLOGY METHOD 06/02/2024 3:00 AM EDT [facility] HCT 28.7(L) 34.0 - 45.0 % LAB HEMATOLOGY METHOD 06/02/2024 3:00 AM EDT [facility] Platelet Count 702(H) 155 - 369 10*3/uL LAB HEMATOLOGY METHOD 06/02/2024 3:00 AM EDT [facility] MCV 93 79 - 98 fL LAB HEMATOLOGY METHOD 06/02/2024 3:00 AM EDT [facility] MCH 29.9 26.0 - 32.0 pg LAB HEMATOLOGY METHOD 06/02/2024 3:00 AM EDT [facility] MCHC 32.1 30.7 - 35.5 g/dL LAB HEMATOLOGY METHOD 06/02/2024 3:00 AM EDT [facility] RDW 15.9(H) 11.5 - 14.5 % LAB HEMATOLOGY METHOD 06/02/2024 3:00 AM EDT [facility] MPV 9.7 8.8 - 12.5 fL LAB HEMATOLOGY METHOD 06/02/2024 3:00 AM EDT [facility] nRBC 0.0 <=0.0 per 100 WBCs LAB HEMATOLOGY METHOD 06/02/2024 3:00 AM EDT [facility] Differential Type Automated LAB HEMATOLOGY METHOD 06/02/2024 3:00 AM EDT [facility] Neutrophils % 84 % LAB HEMATOLOGY METHOD 06/02/2024 3:00 AM EDT [facility] Lymphocytes % 6 % LAB HEMATOLOGY METHOD 06/02/2024 3:00 AM EDT [facility] Monocytes % 5 % LAB HEMATOLOGY METHOD 06/02/2024 3:00 AM EDT [facility] Eosinophils % 1 % LAB HEMATOLOGY METHOD 06/02/2024 3:00 AM EDT [facility] Basophils % 0 % LAB HEMATOLOGY METHOD 06/02/2024 3:00 AM EDT [facility] Immature Granulocytes % 4 % LAB HEMATOLOGY METHOD 06/02/2024 3:00 AM EDT [facility] Neutrophils Absolute 28.51(H) 1.60 - 6.10 10*3/uL LAB HEMATOLOGY METHOD 06/02/2024 3:00 AM EDT [facility] Lymphocytes Absolute 1.86 1.20 - 3.90 10*3/uL LAB HEMATOLOGY METHOD 06/02/2024 3:00 AM EDT [facility] Monocytes Absolute 1.83(H) 0.30 - 0.90 10*3/uL LAB HEMATOLOGY METHOD 06/02/2024 3:00 AM EDT [facility] Eosinophils Absolute 0.27 0.00 - 0.50 10*3/uL LAB HEMATOLOGY METHOD 06/02/2024 3:00 AM EDT [facility] Basophils Absolute 0.05 0.00 - 0.10 10*3/uL LAB HEMATOLOGY METHOD 06/02/2024 3:00 AM EDT [facility] Immature Granulocytes Absolute 1.38(H) 0.00 - 0.06 10*3/uL LAB HEMATOLOGY METHOD 06/02/2024 3:00 AM EDT [facility] Blood Venous blood specimen / Unknown Venipuncture / Unknown 06/02/2024 1:02 AM EDT 06/02/2024 1:16 AM EDT [facility] - 06/02/2024 3:00 AM EDT Therapeutic decision making should be based on absolute values, rather than percentages. us Maite Austin MD LAB BLOOD ORDERABLES Final Resu lt Performing Organization Address [facility] Co de Phone Number [facility] [address] [place] [address] * (ABNORMAL) POCT glucose meter (06/01/2024 11:06 PM EDT) POCT Glucose 104(H) 74 - 99 mg/dL 06/01/2024 11:07 PM EDT [facility] Comment:Accuracy of a glucos e result obtained from a capillary whole blood specimen relies upon adequate, non-compromised capillary blood flow. If the capillary glucose result is not consistent with the patient's clinical signs and symptoms, glucose testing should be repeated with either an arterial or venous sample on the glucometer or sent to the main labortory for testing. Comment 06/01/2024 11:07 PM EDT [facility] Field Hockey Coach ID Tyler Sheffield 06/01/2024 11:07 PM EDT [facility] Device ID [id number] 06/01/2024 11:07 PM EDT [facility] Specimen Type POC Capillary 06/01/2024 11:07 PM EDT [facility] Blood Capillary blood specimen / Unknown 06/01/2024 11:06 PM EDT 06/01/2024 11:07 PM EDT us Maite Austin MD LAB POINT OF CARE TE ST DOCKED DEVICE UNSOLICITED RESULTS Final Result Performing Organization Address [facility] Co de Phone Number [facility] [address] [place] [address] * CT Abdomen Pelvis w IV Contrast (06/01/2024 4:16 PM EDT) Anatomical Region Laterality Modality Abdomen, Pelvis Computed Tomogra phy Impressions 06/01/2024 5:03 PM EDT Surgical changes of left colectomy and end colostomy. Wall thickening and surrounding fat stranding involving the rectal stump and distal small bowel segments in the pelvis, which may infectious or inflammatory. Small partially marginated fluid collection in the lower abdomen concerning for developing abscess. More organized collection in the left upper quadrant extending along the paracolic gutter. Heterogenous renal enhancement may represent pyelonephritis. Small volume pneumoperitoneum, likely postsurgical. Small left pleural effusion, decreased from comparison. CRITICAL RESULT: No. COMMUNICATION: Per this written report. Drafted by Lorri Lopez MD on 06/01/2024 4:46 PM Final report signed by Lorri Lopez MD on 06/01/2024 5:03 PM Narrative 06/01/2024 5:03 PM EDT CLINICAL INDICATION: Abdominal pain, post-op; post colectomy with end colostomy, leukocytosis TECHNIQUE: Multiple axial CT images were obtained from lung bases through pubic symphysis following administration of IV contrast, Omnipaque 300, 100 mL. Reformatted images in the coronal and sagittal planes were generated from the axial data set to facilitate diagnostic accuracy. Total DLP (Dose-Length Product): 368.76 mGy.cm. Please note: The reported value represents the total of one or more individual components during the CT acquisition on this date and at this time, and as such, the same value may appear in more than one CT report depending on the interpreting/reporting physicians. COMPARISON: May 23, 2024. FINDINGS: Lower Chest: Small left pleural effusion with associated atelectasis. Improving groundglass opacities in the lower lungs. Solid Abdominal Organs: Homogenous hepatic enhancement. Likely focal fatty infiltration along the falciform ligament. Prior cholecystectomy. No biliary ductal dilatation. Development of well marginated fluid collection along the anterior spleen extending along the left paracolic gutter measuring 4 x 4 x 11.2 cm (series 3 image 55 and series 5 image 32). Mild fat stranding about the pancreatic tail along the surgical drain. Pancreas is otherwise unremarkable. Morphologically unremarkable adrenal glands. Heterogenous, striated renal enhancement. No hydronephrosis. GI Tract/Mesentery/Peritoneum: Normal caliber stomach. Surgical changes of left colectomy with right mid abdominal end colostomy. Wall thickening and pericolonic fat stranding of the rectal stump and distal small bowel in the pelvis. Partially organized fluid collection in the lower abdomen measures 5 x 1 cm (series 3 image 213). Few prominent mesenteric lymph nodes. Pelvic and upper abdominal surgical drains in place. Pelvic Viscera: Distended bladder without abnormality. Intraluminal air likely from catheterization. Prior hysterectomy. Lymph Nodes/Vasculature: No lymphadenopathy by CT size criteria. The aortoiliac vasculature is patent and normal in caliber. Significant mixed atherosclerotic plaque of the aorta and iliac arteries. Free Fluid: Trace free fluid. Fluid collections as above. Musculoskeletal and Body Wall: Surgical changes of the midline abdomen. No acute bony abnormalities. Procedure Note Lorri Lopez MD - 06/01/2024 CLINICAL INDICATION: Abdominal pain, post-op; post colectomy with end colostomy, leukocytosis TECHNIQUE: Multiple axial CT images were obtained from lung bases through pubicsymphysis following administration of IV contrast, Omnipaque 300, 100 mL.Reformatted images in the coronal and sagittal planes were generated fromthe axial data set to facilitate diagnostic accuracy. Total DLP (Dose-Length Product): 368.76 mGy.cm. Please note: The reportedvalue represents the total of one or more individual components during theCT acquisition on this date and at this time, and as such, the same valuemay appear in more than one CT report depending on theinterpreting/reporting physicians. COMPARISON: May 23, 2024. FINDINGS: Lower Chest: Small left pleural effusion with associated atelectasis.Improving groundglass opacities in the lower lungs. Solid Abdominal Organs: Homogenous hepatic enhancement. Likely focal fattyinfiltration along the falciform ligament. Prior cholecystectomy. Nobiliary ductal dilatation. Development of well marginated fluid collectionalong the anterior spleen extending along the left paracolic guttermeasuring 4 x 4 x 11.2 cm (series 3 image 55 and series 5 image 32). Mildfat stranding about the pancreatic tail along the surgical drain. Pancreasis otherwise unremarkable. Morphologically unremarkable adrenal glands.Heterogenous, striated renal enhancement. No hydronephrosis. GI Tract/Mesentery/Peritoneum: Normal caliber stomach. Surgical changes ofleft colectomy with right mid abdominal end colostomy. Wall thickening andpericolonic fat stranding of the rectal stump and distal small bowel inthe pelvis. Partially organized fluid collection in the lower abdomenmeasures 5 x 1 cm (series 3 image 213). Few prominent mesenteric lymphnodes. Pelvic and upper abdominal surgical drains in place. Pelvic Viscera: Distended bladder without abnormality. Intraluminal airlikely from catheterization. Prior hysterectomy. Lymph Nodes/Vasculature: No lymphadenopathy by CT size criteria. Theaortoiliac vasculature is patent and normal in caliber. Significant mixedatherosclerotic plaque of the aorta and iliac arteries. Free Fluid: Trace free fluid. Fluid collections as above. Musculoskeletal and Body Wall: Surgical changes of the midline abdomen. Noacute bony abnormalities. IMPRESSION: Surgical changes of left colectomy and end colostomy. Wall thickening andsurrounding fat stranding involving the rectal stump and distal smallbowel segments in the pelvis, which may infectious or inflammatory. Small partially marginated fluid collection in the lower abdomenconcerning for developing abscess. More organized collection in the left upper quadrant extending along theparacolic gutter. Heterogenous renal enhancement may represent pyelonephritis. Small volume pneumoperitoneum, likely postsurgical. Small left pleural effusion, decreased from comparison. CRITICAL RESULT: No. COMMUNICATION: Per this written report. Drafted by Lorri Lopez MD on 06/01/2024 4:46 PM Final report signed by Lorri Lopez MD on 06/01/2024 5:03 PM Shola Sheridan [employer] P[employer] IMG CT PROCEDURES Final Resu lt * (ABNORMAL) POCT glucose meter (06/01/2024 11:48 AM EDT) POCT Glucose 101(H) 74 - 99 mg/dL 06/01/2024 11:50 AM EDT [facility] Comment:Accuracy of a glucos e result obtained from a capillary whole blood specimen relies upon adequate, non-compromised capillary blood flow. If the capillary glucose result is not consistent with the patient's clinical signs and symptoms, glucose testing should be repeated with either an arterial or venous sample on the glucometer or sent to the main labortory for testing. Comment 06/01/2024 11:50 AM EDT [facility] Field Hockey Coach ID Henrry Saenz 11:50 AM EDT [facility] Device ID [id number] 06/01/2024 11:50 AM EDT [facility] Specimen Type POC Capillary 06/01/2024 11:50 AM EDT [facility] Blood Capillary blood specimen / Unknown 06/01/2024 11:48 AM EDT 06/01/2024 11:50 AM EDT us Maite Austin MD LAB POINT OF CARE TE ST DOCKED DEVICE UNSOLICITED RESULTS Final Result Performing Organization Address [facility] de Phone Number [facility] [address] [place] [address] * (ABNORMAL) Procalcitonin (06/01/2024 8:42 AM EDT) Procalcitonin, Plasma 0.12(H) <0.09 ng/mL 06/01/2024 9:31 AM EDT [facility] Blood Venous blood specimen / Unknown Venipuncture / Unknown 06/01/2024 8:42 AM EDT 06/01/2024 8:52 AM EDT Narrative [facility] - 06/01/2024 9:31 AM EDT Procalcitonin concentrations in healthy individuals are <0.09 ng/mL. Published data support the following interpretive risk assessment: An elevated procalcitonin result does not always indicate sepsis. Various non-infectious conditions are known to increase procalcitonin. Results should be considered in the context of clinical symptoms and other laboratory tests. Procalcitonin >2.0 ng/mL: Concentrations >2.0 ng/mL on the first day of ICU admission are associated with a higher risk of progression to severe sepsis and/or septic shock. The change in PCT over time may help predict 28 day mortality risk. Please consult [email or web address] for more information. Test performed at [facility]. us Shola Sheridan APRN LAB BLOOD ORDERABLES Final R esult Performing Organization Address City/[facility]/ZIP Co de Phone Number [facility] [address] [place] [address] * Lactate, venous (06/01/2024 8:42 AM EDT) Lactate, Venous, Whole Blood 0.9 0.5 - 2.2 mmol/L LAB HEMATOLOGY METHOD 06/01/2024 9:01 AM EDT [facility] Blood Venous blood specimen / Unknown Venipuncture / Unknown 06/01/2024 8:42 AM EDT 06/01/2024 8:59 AM EDT us Shola Sheridan APRN LAB BLOOD ORDERABLES Final R esult Performing Organization Address [facility] Co de Phone Number [facility] [address] [place] [address] * (ABNORMAL) POCT glucose meter (06/01/2024 6:42 AM EDT) POCT Glucose 106(H) 74 - 99 mg/dL 06/01/2024 6:51 AM EDT [facility] Comment:Accuracy of a glucos e result obtained from a capillary whole blood specimen relies upon adequate, non-compromised capillary blood flow. If the capillary glucose result is not consistent with the patient's clinical signs and symptoms, glucose testing should be repeated with either an arterial or venous sample on the glucometer or sent to the main labortory for testing. Comment 06/01/2024 6:51 AM EDT [facility] Field Hockey Coach ID Sandy Hankins 06/01/2024 6:51 AM EDT [facility] Device ID [id number] 06/01/2024 6:51 AM EDT [facility] Specimen Type POC Capillary 06/01/2024 6:51 AM EDT [facility] Blood Capillary blood specimen / Unknown 06/01/2024 6:42 AM EDT 06/01/2024 6:51 AM EDT us Maite Austin MD LAB POINT OF CARE TE ST DOCKED DEVICE UNSOLICITED RESULTS Final Result Performing Organization Address [facility] Co de Phone Number [facility] [address] [place] [address] * (ABNORMAL) Renal Function Panel, Plasma (06/01/2024 1:20 AM EDT) Glucose, Plasma 495(H) 74 - 99 mg/dL 06/01/2024 1:57 AM EDT [facility] BUN, Plasma 12 7 - 21 mg/dL 06/01/2024 1:57 AM EDT [facility] Creatinine, Plasma 0.54(L) 0.60 - 1.10 mg/dL 06/01/2024 1:57 AM EDT [facility] BUN/Creatinine Ratio 22 06/01/2024 1:57 AM EDT [facility] Sodium, Plasma 126(L) 136 - 145 mmol/L 06/01/2024 1:57 AM EDT [facility] Potassium, Plasma 4.9 3.6 - 4.9 mmol/L 06/01/2024 1:57 AM EDT [facility] Chloride, Plasma 95(L) 97 - 107 mmol/L 06/01/2024 1:57 AM EDT [facility] CO2, Plasma 20(L) 22 - 29 mmol/L 06/01/2024 1:57 AM EDT [facility] Anion Gap 11 6 - 16 mmol/L 06/01/2024 1:57 AM EDT [facility] Total Calcium, Plasma 8.0(L) 8.9 - 10.2 mg/dL 06/01/2024 1:57 AM EDT [facility] Phosphorus, Plasma 5.2(H) 2.5 - 4.5 mg/dL 06/01/2024 1:57 AM EDT [facility] Albumin, Plasma 2.2(L) 3.5 - 5.2 g/dL 06/01/2024 1:57 AM EDT [facility] eGFRcr 109.6 mL/min/1.7 3m*2 06/01/2024 1:57 AM EDT [facility] Comment:Reported eGFRcr in m L/min/1.73m2 is based the CKD-EPI 2020 equation that does not use a race coefficient. Blood Venous blood specimen / Unknown Venipuncture / Unknown 06/01/2024 1:20 AM EDT 06/01/2024 1:27 AM EDT us Lora Llanes APRN LAB BLOOD ORDERABLES Final Result [facility] [address] [place] [address] * Magnesium, Plasma (06/01/2024 1:20 AM EDT) Magnesium, Plasma 2.3 1.9 - 2.4 mg/dL 06/01/2024 1:57 AM EDT [facility] Blood Venous blood specimen / Unknown Venipuncture / Unknown 06/01/2024 1:20 AM EDT 06/01/2024 1:27 AM EDT us Maite Austin MD LAB BLOOD ORDERABLES Final Resu lt [facility] [address] [place] [address] * (ABNORMAL) CBC and Differential (06/01/2024 1:20 AM EDT) WBC Count 33.03(H) 3.70 - 10.30 10*3/uL LAB HEMATOLOGY METHOD 06/01/2024 2:43 AM EDT [facility] RBC Count 3.18(L) 3.90 - 5.20 10*6/uL LAB HEMATOLOGY METHOD 06/01/2024 2:43 AM EDT [facility] HGB 9.7(L) 11.2 - 15.7 g/dL LAB HEMATOLOGY METHOD 06/01/2024 2:43 AM EDT [facility] HCT 29.3(L) 34.0 - 45.0 % LAB HEMATOLOGY METHOD 06/01/2024 2:43 AM EDT [facility] Platelet Count 644(H) 155 - 369 10*3/uL LAB HEMATOLOGY METHOD 06/01/2024 2:43 AM EDT [facility] MCV 92 79 - 98 fL LAB HEMATOLOGY METHOD 06/01/2024 2:43 AM EDT [facility] MCH 30.5 26.0 - 32.0 pg LAB HEMATOLOGY METHOD 06/01/2024 2:43 AM EDT [facility] MCHC 33.1 30.7 - 35.5 g/dL LAB HEMATOLOGY METHOD 06/01/2024 2:43 AM EDT [facility] RDW 15.9(H) 11.5 - 14.5 % LAB HEMATOLOGY METHOD 06/01/2024 2:43 AM EDT [facility] MPV 9.6 8.8 - 12.5 fL LAB HEMATOLOGY METHOD 06/01/2024 2:43 AM EDT [facility] nRBC 0.0 <=0.0 per 100 WBCs LAB HEMATOLOGY METHOD 06/01/2024 2:43 AM EDT [facility] Differential Type Automated LAB HEMATOLOGY METHOD 06/01/2024 2:43 AM EDT [facility] Neutrophils % 81 % LAB HEMATOLOGY METHOD 06/01/2024 2:43 AM EDT [facility] Lymphocytes % 7 % LAB HEMATOLOGY METHOD 06/01/2024 2:43 AM EDT [facility] Monocytes % 6 % LAB HEMATOLOGY METHOD 06/01/2024 2:43 AM EDT [facility] Eosinophils % 1 % LAB HEMATOLOGY METHOD 06/01/2024 2:43 AM EDT [facility] Basophils % 1 % LAB HEMATOLOGY METHOD 06/01/2024 2:43 AM EDT [facility] Immature Granulocytes % 4 % LAB HEMATOLOGY METHOD 06/01/2024 2:43 AM EDT [facility] Neutrophils Absolute 26.89(H) 1.60 - 6.10 10*3/uL LAB HEMATOLOGY METHOD 06/01/2024 2:43 AM EDT [facility] Lymphocytes Absolute 2.39 1.20 - 3.90 10*3/uL LAB HEMATOLOGY METHOD 06/01/2024 2:43 AM EDT [facility] Monocytes Absolute 2.07(H) 0.30 - 0.90 10*3/uL LAB HEMATOLOGY METHOD 06/01/2024 2:43 AM EDT [facility] Eosinophils Absolute 0.22 0.00 - 0.50 10*3/uL LAB HEMATOLOGY METHOD 06/01/2024 2:43 AM EDT [facility] Basophils Absolute 0.15(H) 0.00 - 0.10 10*3/uL LAB HEMATOLOGY METHOD 06/01/2024 2:43 AM EDT [facility] Immature Granulocytes Absolute 1.31(H) 0.00 - 0.06 10*3/uL LAB HEMATOLOGY METHOD 06/01/2024 2:43 AM EDT [facility] Blood Venous blood specimen / Unknown Venipuncture / Unknown 06/01/2024 1:20 AM EDT 06/01/2024 1:28 AM EDT [facility] 06/01/2024 2:43 AM EDT Therapeutic decision making should be based on absolute values, rather than percentages. us Maite Austin MD LAB BLOOD ORDERABLES Final Resu lt Performing Organization Address [facility] Co de Phone Number [facility] [address] [place] [address] * (ABNORMAL) POCT glucose meter (06/01/2024 12:21 AM EDT) POCT Glucose 110(H) 74 - 99 mg/dL 06/01/2024 12:29 AM EDT [facility] Comment:Accuracy of a glucos e result obtained from a capillary whole blood specimen relies upon adequate, non-compromised capillary blood flow. If the capillary glucose result is not consistent with the patient's clinical signs and symptoms, glucose testing should be repeated with either an arterial or venous sample on the glucometer or sent to the main labortory for testing. Comment 06/01/2024 12:29 AM EDT [facility] Field Hockey Coach ID Sandy Hankins 06/01/2024 12:29 AM EDT [facility] Device ID [id number] 06/01/2024 12:29 AM EDT [facility] Specimen Type POC Capillary 06/01/2024 12:29 AM EDT [facility] Blood Capillary blood specimen / Unknown 06/01/2024 12:21 AM EDT 06/01/2024 12:29 AM EDT us Maite Austin MD LAB POINT OF CARE TE ST DOCKED DEVICE UNSOLICITED RESULTS Final Result Performing Organization Address [facility] Co de Phone Number [facility] [address] [place] [address] * POCT glucose meter (05/31/2024 6:17 PM EDT) POCT Glucose 94 74 - 99 mg/dL 05/31/2024 6:19 PM EDT [facility] Comment:Accuracy of a glucos e result obtained from a capillary whole blood specimen relies upon adequate, non-compromised capillary blood flow. If the capillary glucose result is not consistent with the patient's clinical signs and symptoms, glucose testing should be repeated with either an arterial or venous sample on the glucometer or sent to the main labortory for testing. Comment 05/31/2024 6:19 PM EDT [facility] Field Hockey Coach ID Henrry Saenz 6:19 PM EDT [facility] Device ID [id number] 05/31/2024 6:19 PM EDT [facility] Specimen Type POC Capillary 05/31/2024 6:19 PM EDT [facility] Blood Capillary blood specimen / Unknown 05/31/2024 6:17 PM EDT 05/31/2024 6:19 PM EDT Maite Austin MD LAB POINT OF CARE TE ST DOCKED DEVICE UNSOLICITED RESULTS Final Result Performing Organization Address [facility] Co de Phone Number [facility] [address] [place] [address] * (ABNORMAL) POCT glucose meter (05/31/2024 11:15 AM EDT) [facility] Signature POCT Glucose 115(H) 74 - 99 mg/dL 05/31/2024 11:17 AM EDT [facility] Comment:Accuracy of a glucos e result obtained from a capillary whole blood specimen relies upon adequate, non-compromised capillary blood flow. If the capillary glucose result is not consistent with the patient's clinical signs and symptoms, glucose testing should be repeated with either an arterial or venous sample on the glucometer or sent to the main labortory for testing. Comment 05/31/2024 11:17 AM EDT [facility] Field Hockey Coach ID Henrry Saenz 11:17 AM EDT [facility] Device ID [id number] 05/31/2024 11:17 AM EDT [facility] Specimen Type POC Capillary 05/31/2024 11:17 AM EDT [facility] Blood Capillary blood specimen / Unknown 05/31/2024 11:15 AM EDT 05/31/2024 11:17 AM EDT us Maite Austin MD LAB POINT OF CARE TE ST DOCKED DEVICE UNSOLICITED RESULTS Final Result Performing Organization Address City/[facility]/ZIP Co de Phone Number [facility] [address] [place] [address] * XR Chest 1 View (05/31/2024 4:32 AM EDT) Anatomical Region Laterality Modality Chest Digital Radiogra phy Impressions 05/31/2024 10:46 AM EDT No significant interval changes. CRITICAL RESULT: No. COMMUNICATION: Per this written report. By electronically signing this report, I, the attending physician, attest that I have personally reviewed the images/data for the above examination(s) and agree with the final edited report. Drafted by Mino Hobbs MD on 05/31/2024 9:13 AM Final report signed by Edson Ambrose MD on 05/31/2024 10:46 AM Narrative 05/31/2024 10:46 AM EDT CLINICAL INDICATION: s/p CABG TECHNIQUE: XR CHEST 1 VIEW COMPARISON: May 30, 2024 FINDINGS: Left upper extremity PICC line in place with similar position compared to prior study. Stable cardiac mediastinal silhouette. No consolidation. No pneumothorax or pleural effusion. Procedure Note Edson Ambrose MD - 05/31/2024 CLINICAL INDICATION: s/p CABG TECHNIQUE: XR CHEST 1 VIEW COMPARISON: May 30, 2024 FINDINGS: Left upper extremity PICC line in place with similar position compared [place] study. Stable cardiac mediastinal silhouette. No consolidation. Nopneumothorax or pleural effusion. IMPRESSION: No significant interval changes. CRITICAL RESULT: No. COMMUNICATION: Per this written report. By electronically signing this report, I, the attending physician, attestthat I have personally reviewed the images/data for the aboveexamination(s) and agree with the final edited report. Drafted by Mino Hobbs MD on 05/31/2024 9:13 AM Final report signed by Edson Ambrose MD on 05/31/2024 10:46 AM us Maite Austin MD IMG XR PROCEDURES Final Result * N-Terminal Probnp, Plasma (05/31/2024 2:50 AM EDT) N-Terminal, PROBNP, Plasma 732 0 - 899 pg/mL 05/31/2024 3:27 AM EDT [facility] Blood Blood sample taken from central line / Unknown (Central Line) Existing Catheter / Unknown 05/31/2024 2:50 AM EDT 05/31/2024 2:55 AM EDT us Dulce Alamo [employer] LAB BLOOD ORDERABLES Final R esult [facility] [address] [place] [address] * (ABNORMAL) Renal Function Panel, Plasma (05/31/2024 2:50 AM EDT) Glucose, Plasma 107(H) 74 - 99 mg/dL 05/31/2024 3:27 AM EDT [facility] BUN, Plasma 13 7 - 21 mg/dL 05/31/2024 3:27 AM EDT [facility] Creatinine, Plasma 0.52(L) 0.60 - 1.10 mg/dL 05/31/2024 3:27 AM EDT [facility] BUN/Creatinine Ratio 25 05/31/2024 3:27 AM EDT [facility] Sodium, Plasma 129(L) 136 - 145 mmol/L 05/31/2024 3:27 AM EDT [facility] Potassium, Plasma 3.7 3.6 - 4.9 mmol/L 05/31/2024 3:27 AM EDT [facility] Chloride, Plasma 95(L) 97 - 107 mmol/L 05/31/2024 3:27 AM EDT [facility] CO2, Plasma 25 22 - 29 mmol/L 05/31/2024 3:27 AM EDT [facility] Anion Gap 9 6 - 16 mmol/L 05/31/2024 3:27 AM EDT [facility] Total Calcium, Plasma 8.3(L) 8.9 - 10.2 mg/dL 05/31/2024 3:27 AM EDT [facility] Phosphorus, Plasma 4.4 2.5 - 4.5 mg/dL 05/31/2024 3:27 AM EDT [facility] Albumin, Plasma 2.5(L) 3.5 - 5.2 g/dL 05/31/2024 3:27 AM EDT [facility] eGFRcr 110.6 mL/min/1.7 3m*2 05/31/2024 3:27 AM EDT [facility] Comment:Reported eGFRcr in m L/min/1.73m2 is based the CKD-EPI 2020 equation that does not use a race coefficient. Blood Blood sample taken from central line / Unknown (Central Line) Existing Catheter / Unknown 05/31/2024 2:50 AM EDT 05/31/2024 2:55 AM EDT us Lora Llanes APRN LAB BLOOD ORDERABLES Final Result Performing Organization Address [facility]/ZIP Co de Phone Number [facility] [address] [place] [address] * Magnesium, Plasma (05/31/2024 2:50 AM EDT) Magnesium, Plasma 2.0 1.9 - 2.4 mg/dL 05/31/2024 3:27 AM EDT [facility] Blood Blood sample taken from central line / Unknown (Central Line) Existing Catheter / Unknown 05/31/2024 2:50 AM EDT 05/31/2024 2:55 AM EDT us Maite Austin MD LAB BLOOD ORDERABLES Final Resu lt Performing Organization Address City/[facility]/ZIP Co de Phone Number [facility] [address] [place] [address] * (ABNORMAL) CBC and Differential (05/31/2024 2:50 AM EDT) WBC Count 26.51(H) 3.70 - 10.30 10*3/uL LAB HEMATOLOGY METHOD 05/31/2024 3:03 AM EDT [facility] RBC Count 3.36(L) 3.90 - 5.20 10*6/uL LAB HEMATOLOGY METHOD 05/31/2024 3:03 AM EDT [facility] HGB 10.2(L) 11.2 - 15.7 g/dL LAB HEMATOLOGY METHOD 05/31/2024 3:03 AM EDT [facility] HCT 31.0(L) 34.0 - 45.0 % LAB HEMATOLOGY METHOD 05/31/2024 3:03 AM EDT [facility] Platelet Count 670(H) 155 - 369 10*3/uL LAB HEMATOLOGY METHOD 05/31/2024 3:03 AM EDT [facility] MCV 92 79 - 98 fL LAB HEMATOLOGY METHOD 05/31/2024 3:03 AM EDT [facility] MCH 30.4 26.0 - 32.0 pg LAB HEMATOLOGY METHOD 05/31/2024 3:03 AM EDT [facility] MCHC 32.9 30.7 - 35.5 g/dL LAB HEMATOLOGY METHOD 05/31/2024 3:03 AM EDT [facility] RDW 15.9(H) 11.5 - 14.5 % LAB HEMATOLOGY METHOD 05/31/2024 3:03 AM EDT [facility] MPV 9.8 8.8 - 12.5 fL LAB HEMATOLOGY METHOD 05/31/2024 3:03 AM EDT [facility] nRBC 0.0 <=0.0 per 100 WBCs LAB HEMATOLOGY METHOD 05/31/2024 3:03 AM EDT [facility] Differential Type Automated LAB HEMATOLOGY METHOD 05/31/2024 3:03 AM EDT [facility] Neutrophils % 74 % LAB HEMATOLOGY METHOD 05/31/2024 3:03 AM EDT [facility] Lymphocytes % 8 % LAB HEMATOLOGY METHOD 05/31/2024 3:03 AM EDT [facility] Monocytes % 9 % LAB HEMATOLOGY METHOD 05/31/2024 3:03 AM EDT [facility] Eosinophils % 1 % LAB HEMATOLOGY METHOD 05/31/2024 3:03 AM EDT [facility] Basophils % 1 % LAB HEMATOLOGY METHOD 05/31/2024 3:03 AM EDT [facility] Immature Granulocytes % 7 % LAB HEMATOLOGY METHOD 05/31/2024 3:03 AM EDT [facility] Neutrophils Absolute 19.86(H) 1.60 - 6.10 10*3/uL LAB HEMATOLOGY METHOD 05/31/2024 3:03 AM EDT [facility] Lymphocytes Absolute 2.08 1.20 - 3.90 10*3/uL LAB HEMATOLOGY METHOD 05/31/2024 3:03 AM EDT [facility] Monocytes Absolute 2.26(H) 0.30 - 0.90 10*3/uL LAB HEMATOLOGY METHOD 05/31/2024 3:03 AM EDT [facility] Eosinophils Absolute 0.26 0.00 - 0.50 10*3/uL LAB HEMATOLOGY METHOD 05/31/2024 3:03 AM EDT [facility] Basophils Absolute 0.15(H) 0.00 - 0.10 10*3/uL LAB HEMATOLOGY METHOD 05/31/2024 3:03 AM EDT [facility] Immature Granulocytes Absolute 1.90(H) 0.00 - 0.06 10*3/uL LAB HEMATOLOGY METHOD 05/31/2024 3:03 AM EDT [facility] Blood Blood sample taken from central line / Unknown (Central Line) Existing Catheter / Unknown 05/31/2024 2:50 AM EDT 05/31/2024 2:55 AM EDT Narrative [facility] - 05/31/2024 3:03 AM EDT Therapeutic decision making should be based on absolute values, rather than percentages. us Maite Austin MD LAB BLOOD ORDERABLES Final Resu lt [facility] [address] [place] [address] * [place] NEGATIVE PRESSURE WOUND THERAPY DME >50 SQ CM (05/30/2024 3:08 PM EDT) Narrative Graciela Nelson MD - 05/30/2024 3:08 PM EDT Graciela Nelson MD 05/30/2024 10:44 PM Wound Vac Placement Performed by: Iman Massey MD Authorized by: Graciela Nelson MD Consent: Consent obtained: Verbal Consent given by: Patient Risks discussed: Yes Indications: Wound vac replacement Sedation: Sedation type: Anxiolysis (dilaudid) DME Vac: Yes Procedure details: Foam Removed (Pieces): 3 Foam Placed (Pieces): 3 Wound Appearance: Wound with healthy granulation tissue, central portion of incision near umbilicus closed with sheridan Length (cm): 15 Width (cm): 4 Depth (cm): 1.5 Calc Area (square cm): 60 Foam Applied: Black Polyurethane Foam Therapy: Continuous Pressure (mmHg): 125 Patient tolerance of procedure: Tolerated well, no immediate complications us Graciela Nelson MD IN CLINIC/BEDSIDE ORDERAB LES Final Result * N-Terminal Probnp, Plasma (05/30/2024 5:13 AM EDT) N-Terminal, PROBNP, Plasma 887 0 - 899 pg/mL 05/30/2024 2:27 PM EDT [facility] Blood Venous blood specimen / Unknown Venipuncture / Unknown 05/30/2024 5:13 AM EDT 05/30/2024 5:26 AM EDT us Dulce Alamo APRN LAB BLOOD ORDERABLES Final R esult [facility] [address] [place] [address] * (ABNORMAL) Renal Function Panel, Plasma (05/30/2024 5:13 AM EDT) Glucose, Plasma 112(H) 74 - 99 mg/dL 05/30/2024 6:03 AM EDT [facility] BUN, Plasma 14 7 - 21 mg/dL 05/30/2024 6:03 AM EDT [facility] Creatinine, Plasma 0.52(L) 0.60 - 1.10 mg/dL 05/30/2024 6:03 AM EDT [facility] BUN/Creatinine Ratio 27 05/30/2024 6:03 AM EDT [facility] Sodium, Plasma 131(L) 136 - 145 mmol/L 05/30/2024 6:03 AM EDT [facility] Potassium, Plasma 3.7 3.6 - 4.9 mmol/L 05/30/2024 6:03 AM EDT [facility] Chloride, Plasma 96(L) 97 - 107 mmol/L 05/30/2024 6:03 AM EDT [facility] CO2, Plasma 24 22 - 29 mmol/L 05/30/2024 6:03 AM EDT [facility] Anion Gap 11 6 - 16 mmol/L 05/30/2024 6:03 AM EDT [facility] Total Calcium, Plasma 8.0(L) 8.9 - 10.2 mg/dL 05/30/2024 6:03 AM EDT [facility] Phosphorus, Plasma 4.3 2.5 - 4.5 mg/dL 05/30/2024 6:03 AM EDT [facility] Albumin, Plasma 2.3(L) 3.5 - 5.2 g/dL 05/30/2024 6:03 AM EDT [facility] eGFRcr 110.6 mL/min/1.7 3m*2 05/30/2024 6:03 AM EDT [facility] Comment:Reported eGFRcr in m L/min/1.73m2 is based the CKD-EPI 2020 equation that does not use a race coefficient. Blood Venous blood specimen / Unknown Venipuncture / Unknown 05/30/2024 5:13 AM EDT 05/30/2024 5:26 AM EDT us Lora Llanes APRN LAB BLOOD ORDERABLES Final Result Performing Organization Address City/[facility]/ZIP Co de Phone Number [facility] [address] [place] [address] * Magnesium, Plasma (05/30/2024 5:13 AM EDT) Magnesium, Plasma 1.9 1.9 - 2.4 mg/dL 05/30/2024 6:03 AM EDT [facility] Blood Venous blood specimen / Unknown Venipuncture / Unknown 05/30/2024 5:13 AM EDT 05/30/2024 5:26 AM EDT us Maite Austin MD LAB BLOOD ORDERABLES Final Resu lt [facility] [address] [place] [address] * (ABNORMAL) CBC and Differential (05/30/2024 5:13 AM EDT) WBC Count 23.21(H) 3.70 - 10.30 10*3/uL LAB HEMATOLOGY METHOD 05/30/2024 5:38 AM EDT [facility] RBC Count 3.23(L) 3.90 - 5.20 10*6/uL LAB HEMATOLOGY METHOD 05/30/2024 5:38 AM EDT [facility] HGB 9.7(L) 11.2 - 15.7 g/dL LAB HEMATOLOGY METHOD 05/30/2024 5:38 AM EDT [facility] HCT 29.7(L) 34.0 - 45.0 % LAB HEMATOLOGY METHOD 05/30/2024 5:38 AM EDT [facility] Platelet Count 603(H) 155 - 369 10*3/uL LAB HEMATOLOGY METHOD 05/30/2024 5:38 AM EDT [facility] MCV 92 79 - 98 fL LAB HEMATOLOGY METHOD 05/30/2024 5:38 AM EDT [facility] MCH 30.0 26.0 - 32.0 pg LAB HEMATOLOGY METHOD 05/30/2024 5:38 AM EDT [facility] MCHC 32.7 30.7 - 35.5 g/dL LAB HEMATOLOGY METHOD 05/30/2024 5:38 AM EDT [facility] RDW 15.9(H) 11.5 - 14.5 % LAB HEMATOLOGY METHOD 05/30/2024 5:38 AM EDT [facility] MPV 9.8 8.8 - 12.5 fL LAB HEMATOLOGY METHOD 05/30/2024 5:38 AM EDT [facility] nRBC 0.0 <=0.0 per 100 WBCs LAB HEMATOLOGY METHOD 05/30/2024 5:38 AM EDT [facility] Differential Type Automated LAB HEMATOLOGY METHOD 05/30/2024 5:38 AM EDT [facility] Neutrophils % 75 % LAB HEMATOLOGY METHOD 05/30/2024 5:38 AM EDT [facility] Lymphocytes % 9 % LAB HEMATOLOGY METHOD 05/30/2024 5:38 AM EDT [facility] Monocytes % 8 % LAB HEMATOLOGY METHOD 05/30/2024 5:38 AM EDT [facility] Eosinophils % 1 % LAB HEMATOLOGY METHOD 05/30/2024 5:38 AM EDT [facility] Basophils % 1 % LAB HEMATOLOGY METHOD 05/30/2024 5:38 AM EDT [facility] Immature Granulocytes % 6 % LAB HEMATOLOGY METHOD 05/30/2024 5:38 AM EDT [facility] Neutrophils Absolute 17.83(H) 1.60 - 6.10 10*3/uL LAB HEMATOLOGY METHOD 05/30/2024 5:38 AM EDT [facility] Lymphocytes Absolute 1.98 1.20 - 3.90 10*3/uL LAB HEMATOLOGY METHOD 05/30/2024 5:38 AM EDT [facility] Monocytes Absolute 1.73(H) 0.30 - 0.90 10*3/uL LAB HEMATOLOGY METHOD 05/30/2024 5:38 AM EDT [facility] Eosinophils Absolute 0.18 0.00 - 0.50 10*3/uL LAB HEMATOLOGY METHOD 05/30/2024 5:38 AM EDT [facility] Basophils Absolute 0.11(H) 0.00 - 0.10 10*3/uL LAB HEMATOLOGY METHOD 05/30/2024 5:38 AM EDT [facility] Immature Granulocytes Absolute 1.38(H) 0.00 - 0.06 10*3/uL LAB HEMATOLOGY METHOD 05/30/2024 5:38 AM EDT [facility] Blood Venous blood specimen / Unknown Venipuncture / Unknown 05/30/2024 5:13 AM EDT 05/30/2024 5:28 AM EDT Narrative [facility] - 05/30/2024 5:38 AM EDT Therapeutic decision making should be based on absolute values, rather than percentages. us Maite Austin MD LAB BLOOD ORDERABLES Final Resu lt [facility] [address] [place] [address] * XR Chest 1 View (05/30/2024 3:11 AM EDT) Anatomical Region Laterality Modality Chest Digital Radiogra phy Impressions 05/30/2024 9:22 AM EDT Stable exam. CRITICAL RESULT: No. COMMUNICATION: Per this written report. By electronically signing this report, I, the attending physician, attest that I have personally reviewed the images/data for the above examination(s) and agree with the final edited report. Drafted by GER Mckee on 05/30/2024 8:33 AM Final report signed by Champ Oden MD on 05/30/2024 9:22 AM Narrative 05/30/2024 9:22 AM EDT CLINICAL INDICATION: s/p CABG TECHNIQUE: XR CHEST 1 VIEW COMPARISON: May 29, 2024 FINDINGS: Stable support hardware and postoperative changes. Cardiac silhouette and mediastinal contours are stable. No new pulmonary opacities. No pneumothorax. Left basal atelectasis is similar. Procedure Note Champ Oden MD - 05/30/2024 CLINICAL INDICATION: s/p CABG TECHNIQUE: XR CHEST 1 VIEW COMPARISON: May 29, 2024 FINDINGS: Stable support hardware and postoperative changes. Cardiac silhouetteand mediastinal contours are stable. No new pulmonary opacities. Nopneumothorax. Left basal atelectasis is similar. IMPRESSION: Stable exam. CRITICAL RESULT: No. COMMUNICATION: Per this written report. By electronically signing this report, I, the attending physician, attestthat I have personally reviewed the images/data for the aboveexamination(s) and agree with the final edited report. Drafted by GER Mckee on 05/30/2024 8:33 AM Final report signed by Champ Oden MD on 05/30/2024 9:22 AM Maite Austin MD IMG XR PROCEDURES Final Result * Phosphorus (05/29/2024 7:00 AM EDT) Phosphorus, Plasma 4.1 2.5 - 4.5 mg/dL 05/29/2024 7:43 AM EDT [facility] Blood Venous blood specimen / Unknown Venipuncture / Unknown 05/29/2024 7:00 AM EDT 05/29/2024 7:06 AM EDT Maite Austin MD LAB BLOOD ORDERABLES Final Resu lt [facility] [address] [place] [address] * (ABNORMAL) Basic metabolic panel (05/29/2024 7:00 AM EDT) Glucose, Plasma 104(H) 74 - 99 mg/dL 05/29/2024 7:43 AM EDT [facility] BUN, Plasma 13 7 - 21 mg/dL 05/29/2024 7:43 AM EDT [facility] Creatinine, Plasma 0.58(L) 0.60 - 1.10 mg/dL 05/29/2024 7:43 AM EDT [facility] BUN/Creatinine Ratio 22 05/29/2024 7:43 AM EDT [facility] Sodium, Plasma 132(L) 136 - 145 mmol/L 05/29/2024 7:43 AM EDT [facility] Potassium, Plasma 4.0 3.6 - 4.9 mmol/L 05/29/2024 7:43 AM EDT [facility] Chloride, Plasma 97 97 - 107 mmol/L 05/29/2024 7:43 AM EDT [facility] CO2, Plasma 25 22 - 29 mmol/L 05/29/2024 7:43 AM EDT [facility] Anion Gap 10 6 - 16 mmol/L 05/29/2024 7:43 AM EDT [facility] Total Calcium, Plasma 8.3(L) 8.9 - 10.2 mg/dL 05/29/2024 7:43 AM EDT [facility] eGFRcr 107.7 mL/min/1.7 3m*2 05/29/2024 7:43 AM EDT [facility] Comment:Reported eGFRcr in m L/min/1.73m2 is based the CKD-EPI 2020 equation that does not use a race coefficient. Blood Venous blood specimen / Unknown Venipuncture / Unknown 05/29/2024 7:00 AM EDT 05/29/2024 7:06 AM EDT us Maite Austin MD LAB BLOOD ORDERABLES Final Resu lt [facility] [address] [place] [address] * (ABNORMAL) POCT glucose meter (05/29/2024 6:51 AM EDT) [facility] POCT Glucose 118(H) 74 - 99 mg/dL 05/29/2024 6:52 AM EDT [facility] Comment:Accuracy of a glucos e result obtained from a capillary whole blood specimen relies upon adequate, non-compromised capillary blood flow. If the capillary glucose result is not consistent with the patient's clinical signs and symptoms, glucose testing should be repeated with either an arterial or venous sample on the glucometer or sent to the main labortory for testing. Comment 05/29/2024 6:52 AM EDT [facility] Field Hockey Coach ID Cydney Trevizo 05/29/2024 6:52 AM EDT [facility] Device ID [id number] 05/29/2024 6:52 AM EDT [facility] Specimen Type POC Capillary 05/29/2024 6:52 AM EDT [facility] Blood Capillary blood specimen / Unknown 05/29/2024 6:51 AM EDT 05/29/2024 6:52 AM EDT us Maite Austin MD LAB POINT OF CARE TE ST DOCKED DEVICE UNSOLICITED RESULTS Final Result Performing Organization Address City/[facility]/ZIP Co de Phone Number [facility] [address] [place] [id number] * Morphology (05/29/2024 5:35 AM EDT) [facility] Polychromasia Slight LAB HEMATOLOGY METHOD 05/29/2024 8:34 AM EDT [facility] RBC Morphology Slide Reviewed LAB HEMATOLOGY METHOD 05/29/2024 8:34 AM EDT [facility] Platelet Estimate Platelet smear estimate consistent with automated count LAB HEMATOLOGY METHOD 05/29/2024 8:34 AM EDT [facility] Blood Blood sample taken from central line / Unknown Venipuncture / Unknown 05/29/2024 5:35 AM EDT 05/29/2024 5:56 AM EDT us Maite Austin MD LAB BLOOD ORDERABLES Final Resu lt [facility] [address] [place] [address] * (ABNORMAL) Manual Differential (05/29/2024 5:35 AM EDT) Blasts % 0 % LAB HEMATOLOGY METHOD 05/29/2024 8:34 AM EDT [facility] Promyelocytes % 0 % LAB HEMATOLOGY METHOD 05/29/2024 8:34 AM EDT [facility] Myelocytes % 4 % LAB HEMATOLOGY METHOD 05/29/2024 8:34 AM EDT [facility] Metamyelocytes % 5 % LAB HEMATOLOGY METHOD 05/29/2024 8:34 AM EDT [facility] Neutrophils % 82 % LAB HEMATOLOGY METHOD 05/29/2024 8:34 AM EDT [facility] Lymphocytes % 3 % LAB HEMATOLOGY METHOD 05/29/2024 8:34 AM EDT [facility] Reactive Lymphocytes % 1 % LAB HEMATOLOGY METHOD 05/29/2024 8:34 AM EDT [facility] Monocytes % 3 % LAB HEMATOLOGY METHOD 05/29/2024 8:34 AM EDT [facility] Eosinophils % 2 % LAB HEMATOLOGY METHOD 05/29/2024 8:34 AM EDT [facility] Basophils % 0 % LAB HEMATOLOGY METHOD 05/29/2024 8:34 AM EDT [facility] Blasts Absolute 0.00 10*3/UL LAB HEMATOLOGY METHOD 05/29/2024 8:34 AM EDT [facility] Promyelocytes Absolute 0.00 10*3/uL LAB HEMATOLOGY METHOD 05/29/2024 8:34 AM EDT [facility] Myelocytes Absolute 0.90 10*3/uL LAB HEMATOLOGY METHOD 05/29/2024 8:34 AM EDT [facility] Metamyelocytes Absolute 1.13 10*3/uL LAB HEMATOLOGY METHOD 05/29/2024 8:34 AM EDT [facility] Neutrophils Absolute 18.47(H) 1.60 - 6.10 10*3/uL LAB HEMATOLOGY METHOD 05/29/2024 8:34 AM EDT [facility] Lymphocytes Absolute 0.68(L) 1.20 - 3.90 10*3/uL LAB HEMATOLOGY METHOD 05/29/2024 8:34 AM EDT [facility] Reactive Lymphocytes Absolute 0.23 10*3/uL LAB HEMATOLOGY METHOD 05/29/2024 8:34 AM EDT [facility] Monocytes Absolute 0.68 0.30 - 0.90 10*3/uL LAB HEMATOLOGY METHOD 05/29/2024 8:34 AM EDT [facility] Eosinophils Absolute 0.45 0.00 - 0.50 10*3/uL LAB HEMATOLOGY METHOD 05/29/2024 8:34 AM EDT [facility] Basophils Absolute 0.00 0.00 - 0.10 10*3/uL LAB HEMATOLOGY METHOD 05/29/2024 8:34 AM EDT [facility] Blood Blood sample taken from central line / Unknown Venipuncture / Unknown 05/29/2024 5:35 AM EDT 05/29/2024 5:56 AM EDT us Maite Austin MD LAB BLOOD ORDERABLES Final Resu lt [facility] [address] [place] [address] * (ABNORMAL) Renal Function Panel, Plasma (05/29/2024 5:35 AM EDT) Glucose, Plasma 600(HH) 74 - 99 mg/dL 05/29/2024 6:46 AM EDT [facility] BUN, Plasma 12 7 - 21 mg/dL 05/29/2024 6:46 AM EDT [facility] Creatinine, Plasma 0.59(L) 0.60 - 1.10 mg/dL 05/29/2024 6:46 AM EDT [facility] BUN/Creatinine Ratio 20 05/29/2024 6:46 AM EDT [facility] Sodium, Plasma 128(L) 136 - 145 mmol/L 05/29/2024 6:46 AM EDT [facility] Potassium, Plasma 5.1(H) 3.6 - 4.9 mmol/L 05/29/2024 6:46 AM EDT [facility] Chloride, Plasma 95(L) 97 - 107 mmol/L 05/29/2024 6:46 AM EDT [facility] CO2, Plasma 22 22 - 29 mmol/L 05/29/2024 6:46 AM EDT [facility] Anion Gap 11 6 - 16 mmol/L 05/29/2024 6:46 AM EDT [facility] Total Calcium, Plasma 8.1(L) 8.9 - 10.2 mg/dL 05/29/2024 6:46 AM EDT [facility] Phosphorus, Plasma 5.6(H) 2.5 - 4.5 mg/dL 05/29/2024 6:46 AM EDT [facility] Albumin, Plasma 2.0(L) 3.5 - 5.2 g/dL 05/29/2024 6:46 AM EDT [facility] eGFRcr 107.3 mL/min/1.7 3m*2 05/29/2024 6:46 AM EDT [facility] Comment:Reported eGFRcr in m L/min/1.73m2 is based the CKD-EPI 2020 equation that does not use a race coefficient. Blood Blood sample taken from central line / Unknown Venipuncture / Unknown 05/29/2024 5:35 AM EDT 05/29/2024 5:53 AM EDT us Lora Llanes APRN LAB BLOOD ORDERABLES Final Result Performing Organization Address City/[facility]/ZIP Co de Phone Number [facility] [address] [place] [address] * Magnesium, Plasma (05/29/2024 5:35 AM EDT) Magnesium, Plasma 2.1 1.9 - 2.4 mg/dL 05/29/2024 6:46 AM EDT [facility] Blood Blood sample taken from central line / Unknown Venipuncture / Unknown 05/29/2024 5:35 AM EDT 05/29/2024 5:53 AM EDT us Maite Austin MD LAB BLOOD ORDERABLES Final Resu lt Performing Organization Address City/[facility]/ZIP Co de Phone Number [facility] [address] [place] [address] * (ABNORMAL) CBC and Differential (05/29/2024 5:35 AM EDT) [facility] Signature WBC Count 22.52(H) 3.70 - 10.30 10*3/uL LAB HEMATOLOGY METHOD 05/29/2024 8:34 AM EDT [facility] RBC Count 3.08(L) 3.90 - 5.20 10*6/uL LAB HEMATOLOGY METHOD 05/29/2024 8:34 AM EDT [facility] HGB 9.3(L) 11.2 - 15.7 g/dL LAB HEMATOLOGY METHOD 05/29/2024 8:34 AM EDT [facility] HCT 28.9(L) 34.0 - 45.0 % LAB HEMATOLOGY METHOD 05/29/2024 8:34 AM EDT [facility] Platelet Count 528(H) 155 - 369 10*3/uL LAB HEMATOLOGY METHOD 05/29/2024 8:34 AM EDT [facility] MCV 94 79 - 98 fL LAB HEMATOLOGY METHOD 05/29/2024 8:34 AM EDT [facility] MCH 30.2 26.0 - 32.0 pg LAB HEMATOLOGY METHOD 05/29/2024 8:34 AM EDT [facility] MCHC 32.2 30.7 - 35.5 g/dL LAB HEMATOLOGY METHOD 05/29/2024 8:34 AM EDT [facility] RDW 16.3(H) 11.5 - 14.5 % LAB HEMATOLOGY METHOD 05/29/2024 8:34 AM EDT [facility] MPV 10.0 8.8 - 12.5 fL LAB HEMATOLOGY METHOD 05/29/2024 8:34 AM EDT [facility] nRBC 0.0 <=0.0 per 100 WBCs LAB HEMATOLOGY METHOD 05/29/2024 8:34 AM EDT [facility] Differential Type Manual LAB HEMATOLOGY METHOD 05/29/2024 8:34 AM EDT [facility] Blood Blood sample taken from central line / Unknown Venipuncture / Unknown 05/29/2024 5:35 AM EDT 05/29/2024 5:56 AM EDT [facility]ative [facility] - 05/29/2024 8:34 AM EDT Therapeutic decision making should be based on absolute values, rather than percentages. The previously reported component Neutrophils % is no longer being reported.The previously reported component Lymphocytes % is no longer being reported.The previously reported component Monocytes % is no longer being reported.The previously reported component Eosinophils % is no longer being reported.The previously reported component Basophils % is no longer being reported.The previously reported component Immature Granulocytes % is no longer being reported.The previously reported component Absolute Neutrophils is no longer being reported.The previously reported component Absolute Lymphocytes is no longer being reported.The previously reported component Absolute Monocytes is no longer being reported.The previously reported component Absolute Eosinophils is no longer being reported.The previously reported component Absolute Basophils is no longer being reported.The previously reported component Absolute Immature Granulocytes is no longer being reported. us Maite Austin MD LAB BLOOD ORDERABLES Final Resu lt [facility] [address] [place] [address] * XR Chest 1 View (05/29/2024 2:20 AM EDT) Anatomical Region Laterality Modality Chest Digital Radiogra phy Impressions 05/29/2024 8:55 AM EDT Stable exam. CRITICAL RESULT: No. COMMUNICATION: Per this written report Drafted by Champ Oden MD on 05/29/2024 8:55 AM Final report signed by Champ Oden MD on 05/29/2024 8:55 AM Narrative 05/29/2024 8:55 AM EDT CLINICAL INDICATION: s/p CABG TECHNIQUE: XR CHEST 1 VIEW COMPARISON: May 28, 2024 FINDINGS: Left PICC tip at the superior cavoatrial junction. Mediastinal and cardiac contours are stable. Left basal airspace disease and/or atelectasis, similar to comparison. Small left pleural effusion. Procedure Note Champ Oden MD - 05/29/2024 CLINICAL INDICATION: s/p CABG TECHNIQUE: XR CHEST 1 VIEW COMPARISON: May 28, 2024 FINDINGS: Left PICC tip at the superior cavoatrial junction. Mediastinal and cardiaccontours are stable. Left basal airspace disease and/or atelectasis,similar to comparison. Small left pleural effusion. IMPRESSION: Stable exam. CRITICAL RESULT: No. COMMUNICATION: Per this written report Drafted by Champ Oden MD on 05/29/2024 8:55 AM Final report signed by Champ Oden MD on 05/29/2024 8:55 AM Maite Austin MD IMG XR PROCEDURES Final Result * WA NEGATIVE PRESSURE WOUND THERAPY DME >50 SQ CM (05/28/2024 6:10 PM EDT) Narrative Graciela Nelson MD - 05/28/2024 6:10 PM EDT Graciela Nelson MD 05/30/2024 10:44 PM Wound Vac Placement Performed by: Rambo Anguiano DO Authorized by: Maite Austin MD Consent: Consent obtained: Verbal Consent given by: Patient DME Vac: Yes Procedure details: Foam Removed (Pieces): 1 Foam Placed (Pieces): 3 (two in wound, 1 bridge over closed portion of incision) Wound Appearance: Wound with healthy granulation tissue, central portion of incision near umbilicus closed with sheridan Length (cm): 15 Width (cm): 4 Depth (cm): 1.5 Calc Area (square cm): 60 Foam Applied: Black Polyurethane Foam Therapy: Continuous Pressure (mmHg): 125 Patient tolerance of procedure: Tolerated well, no immediate complications Maite Austin MD IN CLINIC/BEDSIDE ORDERABLES Fi nal Result * WA CRITICAL CARE, ADDL 30 MIN (05/28/2024 11:39 AM EDT) Narrative Gregg Burdick MD - 05/28/2024 11:39 AM EDT Gregg Burdick MD 06/05/2024 1:24 PM Critical Care Performed by: Gregg Burdick MD Authorized by: Gregg Burdick MD Critical care provider statement: Critical care time (minutes): 40 Critical care time was exclusive of: Separately billable procedures and treating other patients and teaching time Critical care was time spent personally by me on the following activities: Development of treatment plan with patient or surrogate, discussions with consultants, discussions with primary provider, evaluation of patient's response to treatment, examination of patient, obtaining history from patient or surrogate, ordering and performing treatments and interventions, ordering and review of laboratory studies and ordering and review of radiographic studies I assumed subsequent critical care for this patient from a provider in my division, on the same day: yes Critical care statement: I saw and evaluated the patient with the resident/ fellow. I discussed the case with the resident/ fellow and agree with the findings and plan as documented. us Gregg Burdick MD IN CLINIC/BEDSIDE ORDERABLES Fi nal Result * XR Chest 1 View (05/28/2024 2:04 AM EDT) Anatomical Region Laterality Modality Chest Digital Radiogra phy Impressions 05/28/2024 9:03 AM EDT No significant interval changes. CRITICAL RESULT: No. COMMUNICATION: Per this written report. By electronically signing this report, I, the attending physician, attest that I have personally reviewed the images/data for the above examination(s) and agree with the final edited report. Drafted by Mino Hobbs MD on 05/28/2024 8:53 AM Final report signed by Mary Phelps MD on 05/28/2024 9:03 AM Narrative 05/28/2024 9:03 AM EDT CLINICAL INDICATION: s/p CABG TECHNIQUE: XR CHEST 1 VIEW COMPARISON: May 27, 2024 FINDINGS: Left upper extremity PICC line in place with similar position compared to prior study. Stable cardiac mediastinal silhouette. No new consolidation. No pneumothorax or significant right-sided pleural effusion. A small layering left-sided pleural effusion, without change. Procedure Note Mary Phelps MD - 05/28/2024 CLINICAL INDICATION: s/p CABG TECHNIQUE: XR CHEST 1 VIEW COMPARISON: May 27, 2024 FINDINGS: Left upper extremity PICC line in place with similar [facility]. Stable cardiac mediastinal silhouette. No new consolidation.No pneumothorax or significant right-sided pleural effusion. A smalllayering left-sided pleural effusion, without change. IMPRESSION: No significant interval changes. CRITICAL RESULT: No. COMMUNICATION: Per this written report. By electronically signing this report, I, the attending physician, attestthat I have personally reviewed the images/data for the aboveexamination(s) and agree with the final edited report. Drafted by Mino Hobbs MD on 05/28/2024 8:53 AM Final report signed by Mary Phelps MD on 05/28/2024 9:03 AM Maite Austin MD IMG XR PROCEDURES Final Result * Morphology (05/28/2024 12:47 AM EDT) Polychromasia Slight LAB HEMATOLOGY METHOD 05/28/2024 1:53 AM EDT [facility] Echinocytes Present LAB HEMATOLOGY METHOD 05/28/2024 1:53 AM EDT [facility] Elliptocytes/Ova locytes Present LAB HEMATOLOGY METHOD 05/28/2024 1:53 AM EDT [facility] RBC Morphology Slide Reviewed LAB HEMATOLOGY METHOD 05/28/2024 1:53 AM EDT [facility] Platelet Estimate Platelet smear estimate consistent with automated count LAB HEMATOLOGY METHOD 05/28/2024 1:53 AM EDT [facility] Clumped Platelets Present LAB HEMATOLOGY METHOD 05/28/2024 1:53 AM EDT [facility] Blood Venous blood specimen / Unknown Venipuncture / Unknown 05/28/2024 12:47 AM EDT 05/28/2024 12:58 AM EDT us Maite Austin MD LAB BLOOD ORDERABLES Final Resu lt [facility] [address] [place] [address] * (ABNORMAL) Manual Differential (05/28/2024 12:47 AM EDT) Blasts % 0 % LAB HEMATOLOGY METHOD 05/28/2024 1:53 AM EDT [facility] Promyelocytes % 0 % LAB HEMATOLOGY METHOD 05/28/2024 1:53 AM EDT [facility] Myelocytes % 3 % LAB HEMATOLOGY METHOD 05/28/2024 1:53 AM EDT [facility] Metamyelocytes % 6 % LAB HEMATOLOGY METHOD 05/28/2024 1:53 AM EDT [facility] Neutrophils % 75 % LAB HEMATOLOGY METHOD 05/28/2024 1:53 AM EDT [facility] Lymphocytes % 8 % LAB HEMATOLOGY METHOD 05/28/2024 1:53 AM EDT [facility] Reactive Lymphocytes % 0 % LAB HEMATOLOGY METHOD 05/28/2024 1:53 AM EDT [facility] Monocytes % 4 % LAB HEMATOLOGY METHOD 05/28/2024 1:53 AM EDT [facility] Eosinophils % 2 % LAB HEMATOLOGY METHOD 05/28/2024 1:53 AM EDT [facility] Basophils % 2 % LAB HEMATOLOGY METHOD 05/28/2024 1:53 AM EDT [facility] Blasts Absolute 0.00 10*3/UL LAB HEMATOLOGY METHOD 05/28/2024 1:53 AM EDT [facility] Promyelocytes Absolute 0.00 10*3/uL LAB HEMATOLOGY METHOD 05/28/2024 1:53 AM EDT [facility] Myelocytes Absolute 0.75 10*3/uL LAB HEMATOLOGY METHOD 05/28/2024 1:53 AM EDT [facility] Metamyelocytes Absolute 1.50 10*3/uL LAB HEMATOLOGY METHOD 05/28/2024 1:53 AM EDT [facility] Neutrophils Absolute 18.75(H) 1.60 - 6.10 10*3/uL LAB HEMATOLOGY METHOD 05/28/2024 1:53 AM EDT [facility] Lymphocytes Absolute 2.00 1.20 - 3.90 10*3/uL LAB HEMATOLOGY METHOD 05/28/2024 1:53 AM EDT [facility] Reactive Lymphocytes Absolute 0.00 10*3/uL LAB HEMATOLOGY METHOD 05/28/2024 1:53 AM EDT [facility] Monocytes Absolute 1.00(H) 0.30 - 0.90 10*3/uL LAB HEMATOLOGY METHOD 05/28/2024 1:53 AM EDT [facility] Eosinophils Absolute 0.50 0.00 - 0.50 10*3/uL LAB HEMATOLOGY METHOD 05/28/2024 1:53 AM EDT [facility] Basophils Absolute 0.50(H) 0.00 - 0.10 10*3/uL LAB HEMATOLOGY METHOD 05/28/2024 1:53 AM EDT [facility] Blood Venous blood specimen / Unknown Venipuncture / Unknown 05/28/2024 12:47 AM EDT 05/28/2024 12:58 AM EDT us Maite Austin MD LAB BLOOD ORDERABLES Final Resu lt [facility] [address] [place] [address] * (ABNORMAL) Renal Function Panel, Plasma (05/28/2024 12:47 AM EDT) Glucose, Plasma 106(H) 74 - 99 mg/dL 05/28/2024 1:27 AM EDT [facility] BUN, Plasma 15 7 - 21 mg/dL 05/28/2024 1:27 AM EDT [facility] Creatinine, Plasma 0.66 0.60 - 1.10 mg/dL 05/28/2024 1:27 AM EDT [facility] BUN/Creatinine Ratio 23 05/28/2024 1:27 AM EDT [facility] Sodium, Plasma 137 136 - 145 mmol/L 05/28/2024 1:27 AM EDT [facility] Potassium, Plasma 4.3 3.6 - 4.9 mmol/L 05/28/2024 1:27 AM EDT [facility] Chloride, Plasma 102 97 - 107 mmol/L 05/28/2024 1:27 AM EDT [facility] CO2, Plasma 26 22 - 29 mmol/L 05/28/2024 1:27 AM EDT [facility] Anion Gap 9 6 - 16 mmol/L 05/28/2024 1:27 AM EDT [facility] Total Calcium, Plasma 8.2(L) 8.9 - 10.2 mg/dL 05/28/2024 1:27 AM EDT [facility] Phosphorus, Plasma 3.8 2.5 - 4.5 mg/dL 05/28/2024 1:27 AM EDT [facility] Albumin, Plasma 2.1(L) 3.5 - 5.2 g/dL 05/28/2024 1:27 AM EDT [facility] eGFRcr 104.4 mL/min/1.7 3m*2 05/28/2024 1:27 AM EDT [facility] Comment:Reported eGFRcr in m L/min/1.73m2 is based the CKD-EPI 2020 equation that does not use a race coefficient. Blood Venous blood specimen / Unknown Venipuncture / Unknown 05/28/2024 12:47 AM EDT 05/28/2024 12:56 AM EDT us Lora Llanes APRN LAB BLOOD ORDERABLES Final Result Performing Organization Address City/[facility]/ZIP Co de Phone Number [facility] [address] [place] [address] * Magnesium, Plasma (05/28/2024 12:47 AM EDT) Magnesium, Plasma 1.9 1.9 - 2.4 mg/dL 05/28/2024 1:27 AM EDT [facility] Blood Venous blood specimen / Unknown Venipuncture / Unknown 05/28/2024 12:47 AM EDT 05/28/2024 12:56 AM EDT us Maite Austin MD LAB BLOOD ORDERABLES Final Resu lt Performing Organization Address City/[facility]/ZIP Co de Phone Number [facility] [address] [place] [address] * (ABNORMAL) CBC and Differential (05/28/2024 12:47 AM EDT) WBC Count 25.00(H) 3.70 - 10.30 10*3/uL LAB HEMATOLOGY METHOD 05/28/2024 1:53 AM EDT [facility] RBC Count 3.23(L) 3.90 - 5.20 10*6/uL LAB HEMATOLOGY METHOD 05/28/2024 1:53 AM EDT [facility] HGB 9.7(L) 11.2 - 15.7 g/dL LAB HEMATOLOGY METHOD 05/28/2024 1:53 AM EDT [facility] HCT 30.1(L) 34.0 - 45.0 % LAB HEMATOLOGY METHOD 05/28/2024 1:53 AM EDT [facility] Platelet Count 442(H) 155 - 369 10*3/uL LAB HEMATOLOGY METHOD 05/28/2024 1:53 AM EDT [facility] MCV 93 79 - 98 fL LAB HEMATOLOGY METHOD 05/28/2024 1:53 AM EDT [facility] MCH 30.0 26.0 - 32.0 pg LAB HEMATOLOGY METHOD 05/28/2024 1:53 AM EDT [facility] MCHC 32.2 30.7 - 35.5 g/dL LAB HEMATOLOGY METHOD 05/28/2024 1:53 AM EDT [facility] RDW 16.1(H) 11.5 - 14.5 % LAB HEMATOLOGY METHOD 05/28/2024 1:53 AM EDT [facility] MPV 10.1 8.8 - 12.5 fL LAB HEMATOLOGY METHOD 05/28/2024 1:53 AM EDT [facility] nRBC 0.0 <=0.0 per 100 WBCs LAB HEMATOLOGY METHOD 05/28/2024 1:53 AM EDT [facility] Differential Type Manual LAB HEMATOLOGY METHOD 05/28/2024 1:53 AM EDT [facility] Blood Venous blood specimen / Unknown Venipuncture / Unknown 05/28/2024 12:47 AM EDT 05/28/2024 12:58 AM EDT Narrative [facility] - 05/28/2024 1:53 AM EDT Therapeutic decision making should be based on absolute values, rather than percentages. The previously reported component Neutrophils % is no longer being reported.The previously reported component Lymphocytes % is no longer being reported.The previously reported component Monocytes % is no longer being reported.The previously reported component Eosinophils % is no longer being reported.The previously reported component Basophils % is no longer being reported.The previously reported component Immature Granulocytes % is no longer being reported.The previously reported component Absolute Neutrophils is no longer being reported.The previously reported component Absolute Lymphocytes is no longer being reported.The previously reported component Absolute Monocytes is no longer being reported.The previously reported component Absolute Eosinophils is no longer being reported.The previously reported component Absolute Basophils is no longer being reported.The previously reported component Absolute Immature Granulocytes is no longer being reported. us Maite Austin MD LAB BLOOD ORDERABLES Final Resu lt [facility] [address] [place] [id number] * XR Abdomen 1 View (05/27/2024 9:45 PM EDT) Anatomical Region Laterality Modality Body Digital Radiogra phy Impressions 05/27/2024 9:59 PM EDT No gas-filled dilated bowel to suggest ileus or obstruction. CRITICAL RESULT: No. COMMUNICATION: Per this written report. Drafted by Lorri Lopez MD on 05/27/2024 9:57 PM Final report signed by Lorri Lopez MD on 05/27/2024 9:59 PM Narrative 05/27/2024 9:59 PM EDT CLINICAL INDICATION: Post-op ileus TECHNIQUE: XR ABDOMEN 1 VIEW COMPARISON: CT May 23, 2024 FINDINGS: Cholecystectomy clips. Right upper quadrant ostomy. Surgical drain in the left midabdomen and pelvis. K catheter. Midline skin sheridan. No gas-filled dilated large or small bowel. No overt pneumatosis or free air. Procedure Note Lorri Lopez MD - 05/27/2024 CLINICAL INDICATION: Post-op ileus TECHNIQUE: XR ABDOMEN 1 VIEW COMPARISON: CT May 23, 2024 FINDINGS: Cholecystectomy clips. Right upper quadrant ostomy. Surgical drain in theleft midabdomen and pelvis. K catheter. Midline skin sheridan. Nogas-filled dilated large or small bowel. No overt pneumatosis or freeair. IMPRESSION: No gas-filled dilated bowel to suggest ileus or obstruction. CRITICAL RESULT: No. COMMUNICATION: Per this written report. Drafted by Lorri Lopez MD on 05/27/2024 9:57 PM Final report signed by Lorri Lopez MD on 05/27/2024 9:59 PM Maite Austin MD IMG XR PROCEDURES Final Result * (ABNORMAL) POCT glucose meter (05/27/2024 6:52 PM EDT) POCT Glucose 120(H) 74 - 99 mg/dL 05/27/2024 6:54 PM EDT [facility] Comment:Accuracy of a glucos e result obtained from a capillary whole blood specimen relies upon adequate, non-compromised capillary blood flow. If the capillary glucose result is not consistent with the patient's clinical signs and symptoms, glucose testing should be repeated with either an arterial or venous sample on the glucometer or sent to the main labortory for testing. Comment 05/27/2024 6:54 PM EDT [facility] Field Hockey Coach ID Sp Singer 05/27/2024 6:54 PM EDT [facility] Device ID [id number] 05/27/2024 6:54 PM EDT [facility] Specimen Type POC Capillary 05/27/2024 6:54 PM EDT [facility] Blood Capillary blood specimen / Unknown 05/27/2024 6:52 PM EDT 05/27/2024 6:54 PM EDT us Maite Austin MD LAB POINT OF CARE TE ST DOCKED DEVICE UNSOLICITED RESULTS Final Result Performing Organization Address City/State/[facility] Co de Phone Number [facility] [address] [place] [address] * [place] [facility], E/M 30-74 MINUTES (05/27/2024 11:12 AM EDT) Narrative Jose Martin Traylor DO - 05/27/2024 11:12 AM EDT Jose Martin Traylor DO 05/28/2024 7:11 PM Critical Care Performed by: Jose Martin Traylor DO Authorized by: Jose Martin Traylor DO Critical care provider statement: Critical care time (minutes): 34 Critical care time was exclusive of: Separately billable procedures and treating other patients and teaching time Critical care was time spent personally by me on the following activities: Discussions with primary provider, evaluation of patient's response to treatment, examination of patient, ordering and review of radiographic studies, ordering and review of laboratory studies and ordering and performing treatments and interventions I assumed subsequent critical care for this patient from a provider in my division, on the same day: no Critical care statement: I saw and evaluated the patient with the resident/ fellow. I discussed the case with the resident/ fellow and agree with the findings and plan as documented. us Jose Martin Traylor DO IN CLINIC/BEDSIDE ORDERABLES F inal Result * Morphology (05/27/2024 4:54 AM EDT) Polychromasia Slight LAB HEMATOLOGY METHOD 05/27/2024 6:30 AM EDT [facility] Elliptocytes/Ova locytes Present LAB HEMATOLOGY METHOD 05/27/2024 6:30 AM EDT [facility] RBC Morphology Slide Reviewed LAB HEMATOLOGY METHOD 05/27/2024 6:30 AM EDT [facility] Platelet Estimate Platelet smear estimate consistent with automated count LAB HEMATOLOGY METHOD 05/27/2024 6:30 AM EDT [facility] Clumped Platelets Present LAB HEMATOLOGY METHOD 05/27/2024 6:30 AM EDT [facility] Blood Venous blood specimen / Unknown Venipuncture / Unknown 05/27/2024 4:54 AM EDT 05/27/2024 5:03 AM EDT us Maite Austin MD LAB BLOOD ORDERABLES Final Resu lt [facility] [address] [place] [address] * (ABNORMAL) Manual Differential (05/27/2024 4:54 AM EDT) Blasts % 0 % LAB HEMATOLOGY METHOD 05/27/2024 6:30 AM EDT [facility] Promyelocytes % 0 % LAB HEMATOLOGY METHOD 05/27/2024 6:30 AM EDT [facility] Myelocytes % 3 % LAB HEMATOLOGY METHOD 05/27/2024 6:30 AM EDT [facility] Metamyelocytes % 4 % LAB HEMATOLOGY METHOD 05/27/2024 6:30 AM EDT [facility] Neutrophils % 80 % LAB HEMATOLOGY METHOD 05/27/2024 6:30 AM EDT [facility] Lymphocytes % 4 % LAB HEMATOLOGY METHOD 05/27/2024 6:30 AM EDT [facility] Reactive Lymphocytes % 0 % LAB HEMATOLOGY METHOD 05/27/2024 6:30 AM EDT [facility] Monocytes % 6 % LAB HEMATOLOGY METHOD 05/27/2024 6:30 AM EDT [facility] Eosinophils % 3 % LAB HEMATOLOGY METHOD 05/27/2024 6:30 AM EDT [facility] Basophils % 0 % LAB HEMATOLOGY METHOD 05/27/2024 6:30 AM EDT [facility] Blasts Absolute 0.00 10*3/UL LAB HEMATOLOGY METHOD 05/27/2024 6:30 AM EDT [facility] Promyelocytes Absolute 0.00 10*3/uL LAB HEMATOLOGY METHOD 05/27/2024 6:30 AM EDT [facility] Myelocytes Absolute 0.92 10*3/uL LAB HEMATOLOGY METHOD 05/27/2024 6:30 AM EDT [facility] Metamyelocytes Absolute 1.23 10*3/uL LAB HEMATOLOGY METHOD 05/27/2024 6:30 AM EDT [facility] Neutrophils Absolute 24.62(H) 1.60 - 6.10 10*3/uL LAB HEMATOLOGY METHOD 05/27/2024 6:30 AM EDT [facility] Lymphocytes Absolute 1.23 1.20 - 3.90 10*3/uL LAB HEMATOLOGY METHOD 05/27/2024 6:30 AM EDT [facility] Reactive Lymphocytes Absolute 0.00 10*3/uL LAB HEMATOLOGY METHOD 05/27/2024 6:30 AM EDT [facility] Monocytes Absolute 1.85(H) 0.30 - 0.90 10*3/uL LAB HEMATOLOGY METHOD 05/27/2024 6:30 AM EDT [facility] Eosinophils Absolute 0.92(H) 0.00 - 0.50 10*3/uL LAB HEMATOLOGY METHOD 05/27/2024 6:30 AM EDT [facility] Basophils Absolute 0.00 0.00 - 0.10 10*3/uL LAB HEMATOLOGY METHOD 05/27/2024 6:30 AM EDT [facility] Blood Venous blood specimen / Unknown Venipuncture / Unknown 05/27/2024 4:54 AM EDT 05/27/2024 5:03 AM EDT us Maite Austin MD LAB BLOOD ORDERABLES Final Resu lt [facility] [address] [place] [address] * (ABNORMAL) Renal Function Panel, Plasma (05/27/2024 4:54 AM EDT) Glucose, Plasma 127(H) 74 - 99 mg/dL 05/27/2024 5:34 AM EDT [facility] BUN, Plasma 16 7 - 21 mg/dL 05/27/2024 5:34 AM EDT [facility] Creatinine, Plasma 0.71 0.60 - 1.10 mg/dL 05/27/2024 5:34 AM EDT [facility] BUN/Creatinine Ratio 23 05/27/2024 5:34 AM EDT [facility] Sodium, Plasma 134(L) 136 - 145 mmol/L 05/27/2024 5:34 AM EDT [facility] Potassium, Plasma 4.1 3.6 - 4.9 mmol/L 05/27/2024 5:34 AM EDT [facility] Chloride, Plasma 99 97 - 107 mmol/L 05/27/2024 5:34 AM EDT [facility] CO2, Plasma 26 22 - 29 mmol/L 05/27/2024 5:34 AM EDT [facility] Anion Gap 9 6 - 16 mmol/L 05/27/2024 5:34 AM EDT [facility] Total Calcium, Plasma 8.4(L) 8.9 - 10.2 mg/dL 05/27/2024 5:34 AM EDT [facility] Phosphorus, Plasma 4.7(H) 2.5 - 4.5 mg/dL 05/27/2024 5:34 AM EDT [facility] Albumin, Plasma 2.1(L) 3.5 - 5.2 g/dL 05/27/2024 5:34 AM EDT [facility] eGFRcr 101.2 mL/min/1.7 3m*2 05/27/2024 5:34 AM EDT [facility] Comment:Reported eGFRcr in m L/min/1.73m2 is based the CKD-EPI 2020 equation that does not use a race coefficient. Blood Venous blood specimen / Unknown Venipuncture / Unknown 05/27/2024 4:54 AM EDT 05/27/2024 5:02 AM EDT us Lora Llanes APRN LAB BLOOD ORDERABLES Final Result [facility] [address] [place] [address] * Magnesium, Plasma (05/27/2024 4:54 AM EDT) Pathologist [facility] Magnesium, Plasma 2.1 1.9 - 2.4 mg/dL 05/27/2024 5:34 AM EDT [facility] Blood Venous blood specimen / Unknown Venipuncture / Unknown 05/27/2024 4:54 AM EDT 05/27/2024 5:02 AM EDT us Maite Austin MD LAB BLOOD ORDERABLES Final Resu lt [facility] [address] [place] [address] * (ABNORMAL) CBC and Differential (05/27/2024 4:54 AM EDT) Pathologist [facility] WBC Count 30.77(H) 3.70 - 10.30 10*3/uL LAB HEMATOLOGY METHOD 05/27/2024 6:30 AM EDT [facility] RBC Count 3.22(L) 3.90 - 5.20 10*6/uL LAB HEMATOLOGY METHOD 05/27/2024 6:30 AM EDT [facility] HGB 9.5(L) 11.2 - 15.7 g/dL LAB HEMATOLOGY METHOD 05/27/2024 6:30 AM EDT [facility] HCT 29.8(L) 34.0 - 45.0 % LAB HEMATOLOGY METHOD 05/27/2024 6:30 AM EDT [facility] Platelet Count 413(H) 155 - 369 10*3/uL LAB HEMATOLOGY METHOD 05/27/2024 6:30 AM EDT [facility] MCV 93 79 - 98 fL LAB HEMATOLOGY METHOD 05/27/2024 6:30 AM EDT [facility] MCH 29.5 26.0 - 32.0 pg LAB HEMATOLOGY METHOD 05/27/2024 6:30 AM EDT [facility] MCHC 31.9 30.7 - 35.5 g/dL LAB HEMATOLOGY METHOD 05/27/2024 6:30 AM EDT [facility] RDW 15.9(H) 11.5 - 14.5 % LAB HEMATOLOGY METHOD 05/27/2024 6:30 AM EDT [facility] MPV 10.2 8.8 - 12.5 fL LAB HEMATOLOGY METHOD 05/27/2024 6:30 AM EDT [facility] nRBC 0.3(H) <=0.0 per 100 WBCs LAB HEMATOLOGY METHOD 05/27/2024 6:30 AM EDT [facility] Differential Type Manual LAB HEMATOLOGY METHOD 05/27/2024 6:30 AM EDT [facility] Blood Venous blood specimen / Unknown Venipuncture / Unknown 05/27/2024 4:54 AM EDT 05/27/2024 5:03 AM EDT Narrative [facility] - 05/27/2024 6:30 AM EDT Therapeutic decision making should be based on absolute values, rather than percentages. The previously reported component Neutrophils % is no longer being reported.The previously reported component Lymphocytes % is no longer being reported.The previously reported component Monocytes % is no longer being reported.The previously reported component Eosinophils % is no longer being reported.The previously reported component Basophils % is no longer being reported.The previously reported component Immature Granulocytes % is no longer being reported.The previously reported component Absolute Neutrophils is no longer being reported.The previously reported component Absolute Lymphocytes is no longer being reported.The previously reported component Absolute Monocytes is no longer being reported.The previously reported component Absolute Eosinophils is no longer being reported.The previously reported component Absolute Basophils is no longer being reported.The previously reported component Absolute Immature Granulocytes is no longer being reported. us Maite Austin MD LAB BLOOD ORDERABLES Final Resu lt [facility] [address] [place] [address] * XR Chest 1 View (05/27/2024 2:37 AM EDT) Anatomical Region Laterality Modality Chest Digital Radiogra phy Impressions 05/27/2024 12:10 PM EDT No significant interval change. CRITICAL RESULT: No. COMMUNICATION: Per this written report. Drafted by Zahraa Berger MD on 05/27/2024 12:09 PM Final report signed by Zahraa Berger MD on 05/27/2024 12:10 PM Narrative 05/27/2024 12:10 PM EDT CLINICAL INDICATION: s/p CABG TECHNIQUE: Single AP view of chest. COMPARISON: One day prior FINDINGS: Intact median sternotomy wires. Stable position of the left PICC. The cardiac and mediastinal contours are unchanged. No pneumothorax or sizable pleural effusion. Mild pulmonary vascular congestion. Improved lung volumes. Bibasal atelectatic changes. Procedure Note Zahraa Berger MD - 05/27/2024 CLINICAL INDICATION: s/p CABG TECHNIQUE: Single AP view of chest. COMPARISON: One day prior FINDINGS: Intact median sternotomy wires. Stable position of the left PICC. Thecardiac and mediastinal contours are unchanged. No pneumothorax or sizablepleural effusion. Mild pulmonary vascular congestion. Improved lungvolumes. Bibasal atelectatic changes. IMPRESSION: No significant interval change. CRITICAL RESULT: No. COMMUNICATION: Per this written report. Drafted by Zahraa Berger MD on 05/27/2024 12:09 PM Final report signed by Zahraa Berger MD on 05/27/2024 12:10 PM us Maite Austin MD IMG XR PROCEDURES Final Result * Transfuse RBC (05/26/2024 6:44 PM EDT) us Maite Austin MD BLOOD TRANSFUSION ORDERABLES Fi nal Result * Transfuse RBC: 1 Units (05/26/2024 6:44 PM EDT) us Maite Austin MD BLOOD TRANSFUSION ORDERABLES Fi nal Result * (ABNORMAL) POCT glucose meter (05/26/2024 6:18 PM EDT) [facility] POCT Glucose 124(H) 74 - 99 mg/dL 05/26/2024 6:19 PM EDT [facility] Comment:Accuracy of a glucos e result obtained from a capillary whole blood specimen relies upon adequate, non-compromised capillary blood flow. If the capillary glucose result is not consistent with the patient's clinical signs and symptoms, glucose testing should be repeated with either an arterial or venous sample on the glucometer or sent to the main labortory for testing. Comment 05/26/2024 6:19 PM EDT [facility] Field Hockey Coach ID Reyna Le 05/26/2024 6:19 PM EDT [facility] Device ID [id number] 05/26/2024 6:19 PM EDT [facility] Specimen Type POC Capillary 05/26/2024 6:19 PM EDT [facility] Blood Capillary blood specimen / Unknown 05/26/2024 6:18 PM EDT 05/26/2024 6:19 PM EDT us Maite Austin MD LAB POINT OF CARE TE ST DOCKED DEVICE UNSOLICITED RESULTS Final Result Performing Organization Address City/State/[facility] Co de Phone Number [facility] [address] [place] [address] * XR Chest 1 View (05/26/2024 4:30 PM EDT) Anatomical Region Laterality Modality Chest Digital Radiogra phy Impressions 05/26/2024 5:17 PM EDT No interval change. CRITICAL RESULT: No. COMMUNICATION: Per this written report. Drafted by Lorri Lopez MD on 05/26/2024 5:12 PM Final report signed by Lorri Lopez MD on 05/26/2024 5:17 PM Narrative 05/26/2024 5:17 PM EDT CLINICAL INDICATION: Post CABG TECHNIQUE: XR CHEST 1 VIEW COMPARISON: May 26, 2024 FINDINGS: Unchanged left upper extremity PICC. Persistent low lung volumes. Bilateral pleural effusions and basilar atelectasis remain unchanged. No pneumothorax. Stable cardiac silhouette. Procedure Note Lorri Lopez MD - 05/26/2024 CLINICAL INDICATION: Post CABG TECHNIQUE: XR CHEST 1 VIEW COMPARISON: May 26, 2024 FINDINGS: Unchanged left upper extremity PICC. Persistent low lung volumes.Bilateral pleural effusions and basilar atelectasis remain unchanged. Nopneumothorax. Stable cardiac silhouette. IMPRESSION: No interval change. CRITICAL RESULT: No. COMMUNICATION: Per this written report. Drafted by Lorri Lopez MD on 05/26/2024 5:12 PM Final report signed by Lorri Lopez MD on 05/26/2024 5:17 PM us Maite Austin MD IMG XR PROCEDURES Final Result * [place] [facility], ADDL 30 MIN (05/26/2024 3:17 PM EDT) Narrative Gregg Burdick MD - 05/26/2024 3:17 PM EDT Gregg Burdick MD 06/05/2024 10:20 AM Critical Care Performed by: Gregg Burdick MD Authorized by: Gregg Burdick MD Critical care provider statement: Critical care time (minutes): 40 Critical care time was exclusive of: Separately billable procedures and treating other patients and teaching time Critical care was time spent personally by me on the following activities: Development of treatment plan with patient or surrogate, discussions with primary provider, evaluation of patient's response to treatment, examination of patient, obtaining history from patient or surrogate, ordering and performing treatments and interventions, ordering and review of laboratory studies, ordering and review of radiographic studies and review of old charts I assumed subsequent critical care for this patient from a provider in my division, on the same day: yes Critical care statement: I saw and evaluated the patient with the resident/ fellow. I discussed the case with the resident/ fellow and agree with the findings and plan as documented. Gregg Burdick MD IN CLINIC/BEDSIDE ORDERABLES Fi nal Result * Type and screen (05/26/2024 3:12 PM EDT) ABO/Rh B Positive 05/26/2024 2:21 PM EDT [facility] Antibody Screen Negative 05/26/2024 2:21 PM EDT [facility] Specimen Expiration 05/29/2024 23:59 05/26/2024 2:21 PM EDT [facility] Blood Venous blood specimen / Unknown Venipuncture / Unknown 05/26/2024 3:12 PM EDT 05/26/2024 3:27 PM EDT Maite Austin MD LAB BLOOD BANK TEST ORDERABLES Final Result BLOOD BANK [address] [place] [address], * Prepare Leukocyte Reduced RBC: 1 Units (05/26/2024 2:21 PM EDT) [facility] Product Code [id number] CH BLOO D BANK Dispense Status Transfused BLOOD BANK Blood Expiration Date [id number] BLOOD BANK Unit Number [id number] CH B LOOD BANK Product Blood Type 7300 BLOOD BANK Blood Type B+ BLOOD BANK Crossmatch Compatible CH BLOOD BANK Other Maite Austin MD BLOOD BANK PRODUCT ORDERABLES F inal Result Performing Organization Address City/[facility] Co de Phone Number BLOOD BANK [address] [place] [address] * (ABNORMAL) POCT glucose meter (05/26/2024 12:19 PM EDT) [facility] POCT Glucose 129(H) 74 - 99 mg/dL 05/26/2024 12:21 PM EDT [facility] Comment:Accuracy of a glucos e result obtained from a capillary whole blood specimen relies upon adequate, non-compromised capillary blood flow. If the capillary glucose result is not consistent with the patient's clinical signs and symptoms, glucose testing should be repeated with either an arterial or venous sample on the glucometer or sent to the main labortory for testing. Comment 05/26/2024 12:21 PM EDT [facility] Field Hockey Coach ID Reyna Le 05/26/2024 12:21 PM EDT [facility] Device ID [id number] 05/26/2024 12:21 PM EDT [facility] Specimen Type POC Capillary 05/26/2024 12:21 PM EDT [facility] Blood Capillary blood specimen / Unknown 05/26/2024 12:19 PM EDT 05/26/2024 12:21 PM EDT Maite Austin MD LAB POINT OF CARE TE ST DOCKED DEVICE UNSOLICITED RESULTS Final Result Performing Organization Address City/[facility]/ZIP Co de Phone Number [facility] [address] [place] [address] * Morphology (05/26/2024 3:27 AM EDT) [facility] Polychromasia Slight LAB HEMATOLOGY METHOD 05/26/2024 4:24 AM EDT [facility] Elliptocytes/Ova locytes Present LAB HEMATOLOGY METHOD 05/26/2024 4:24 AM EDT [facility] RBC Morphology Slide Reviewed LAB HEMATOLOGY METHOD 05/26/2024 4:24 AM EDT [facility] Target Cells Present LAB HEMATOLOGY METHOD 05/26/2024 4:24 AM EDT [facility] Platelet Estimate Platelet smear estimate consistent with automated count LAB HEMATOLOGY METHOD 05/26/2024 4:24 AM EDT [facility] Clumped Platelets Present LAB HEMATOLOGY METHOD 05/26/2024 4:24 AM EDT [facility] Blood Venous blood specimen / Unknown Venipuncture / Unknown 05/26/2024 3:27 AM EDT 05/26/2024 3:38 AM EDT us Maite Austin MD LAB BLOOD ORDERABLES Final Resu lt [facility] [address] [place] [address] * (ABNORMAL) Manual Differential (05/26/2024 3:27 AM EDT) Blasts % 0 % LAB HEMATOLOGY METHOD 05/26/2024 4:24 AM EDT [facility] Promyelocytes % 0 % LAB HEMATOLOGY METHOD 05/26/2024 4:24 AM EDT [facility] Myelocytes % 0 % LAB HEMATOLOGY METHOD 05/26/2024 4:24 AM EDT [facility] Metamyelocytes % 0 % LAB HEMATOLOGY METHOD 05/26/2024 4:24 AM EDT [facility] Neutrophils % 81 % LAB HEMATOLOGY METHOD 05/26/2024 4:24 AM EDT [facility] Lymphocytes % 9 % LAB HEMATOLOGY METHOD 05/26/2024 4:24 AM EDT [facility] Reactive Lymphocytes % 0 % LAB HEMATOLOGY METHOD 05/26/2024 4:24 AM EDT [facility] Monocytes % 10 % LAB HEMATOLOGY METHOD 05/26/2024 4:24 AM EDT [facility] Eosinophils % 0 % LAB HEMATOLOGY METHOD 05/26/2024 4:24 AM EDT [facility] Basophils % 0 % LAB HEMATOLOGY METHOD 05/26/2024 4:24 AM EDT [facility] Blasts Absolute 0.00 10*3/UL LAB HEMATOLOGY METHOD 05/26/2024 4:24 AM EDT [facility] [facility] Promyelocytes Absolute 0.00 10*3/uL LAB HEMATOLOGY METHOD 05/26/2024 4:24 AM EDT [facility] Myelocytes Absolute 0.00 10*3/uL LAB HEMATOLOGY METHOD 05/26/2024 4:24 AM EDT [facility] Metamyelocytes Absolute 0.00 10*3/uL LAB HEMATOLOGY METHOD 05/26/2024 4:24 AM EDT [facility] Neutrophils Absolute 28.12(H) 1.60 - 6.10 10*3/uL LAB HEMATOLOGY METHOD 05/26/2024 4:24 AM EDT [facility] Lymphocytes Absolute 3.12 1.20 - 3.90 10*3/uL LAB HEMATOLOGY METHOD 05/26/2024 4:24 AM EDT [facility] Reactive Lymphocytes Absolute 0.00 10*3/uL LAB HEMATOLOGY METHOD 05/26/2024 4:24 AM EDT [facility] Monocytes Absolute 3.47(H) 0.30 - 0.90 10*3/uL LAB HEMATOLOGY METHOD 05/26/2024 4:24 AM EDT [facility] Eosinophils Absolute 0.00 0.00 - 0.50 10*3/uL LAB HEMATOLOGY METHOD 05/26/2024 4:24 AM EDT [facility] Basophils Absolute 0.00 0.00 - 0.10 10*3/uL LAB HEMATOLOGY METHOD 05/26/2024 4:24 AM EDT [facility] Blood Venous blood specimen / Unknown Venipuncture / Unknown 05/26/2024 3:27 AM EDT 05/26/2024 3:38 AM EDT us Maite Austin MD LAB BLOOD ORDERABLES Final Resu lt [facility] [address] [place] [address] * (ABNORMAL) Renal Function Panel, Plasma (05/26/2024 3:27 AM EDT) Glucose, Plasma 122(H) 74 - 99 mg/dL 05/26/2024 4:12 AM EDT [facility] BUN, Plasma 17 7 - 21 mg/dL 05/26/2024 4:12 AM EDT [facility] Creatinine, Plasma 0.73 0.60 - 1.10 mg/dL 05/26/2024 4:12 AM EDT [facility] BUN/Creatinine Ratio 23 05/26/2024 4:12 AM EDT [facility] Sodium, Plasma 136 136 - 145 mmol/L 05/26/2024 4:12 AM EDT [facility] Potassium, Plasma 4.5 3.6 - 4.9 mmol/L 05/26/2024 4:12 AM EDT [facility] Chloride, Plasma 104 97 - 107 mmol/L 05/26/2024 4:12 AM EDT [facility] CO2, Plasma 24 22 - 29 mmol/L 05/26/2024 4:12 AM EDT [facility] Anion Gap 8 6 - 16 mmol/L 05/26/2024 4:12 AM EDT [facility] Total Calcium, Plasma 7.8(L) 8.9 - 10.2 mg/dL 05/26/2024 4:12 AM EDT [facility] Phosphorus, Plasma 4.0 2.5 - 4.5 mg/dL 05/26/2024 4:12 AM EDT [facility] Albumin, Plasma 2.0(L) 3.5 - 5.2 g/dL 05/26/2024 4:12 AM EDT [facility] eGFRcr 97.9 mL/min/1.7 3m*2 05/26/2024 4:12 AM EDT [facility] Comment:Reported eGFRcr in m L/min/1.73m2 is based the CKD-EPI 2020 equation that does not use a race coefficient. Blood Venous blood specimen / Unknown Venipuncture / Unknown 05/26/2024 3:27 AM EDT 05/26/2024 3:38 AM EDT us Lora Llanes [employer] LAB BLOOD ORDERABLES Final Result [facility] [address] [place] [address] * Magnesium, Plasma (05/26/2024 3:27 AM EDT) Magnesium, Plasma 2.1 1.9 - 2.4 mg/dL 05/26/2024 4:12 AM EDT [facility] Blood Venous blood specimen / Unknown Venipuncture / Unknown 05/26/2024 3:27 AM EDT 05/26/2024 3:38 AM EDT us Maite Austin MD LAB BLOOD ORDERABLES Final Resu lt [facility] [address] [place] [address] * (ABNORMAL) CBC and Differential (05/26/2024 3:27 AM EDT) WBC Count 34.71(H) 3.70 - 10.30 10*3/uL LAB HEMATOLOGY METHOD 05/26/2024 4:24 AM EDT [facility] RBC Count 2.35(L) 3.90 - 5.20 10*6/uL LAB HEMATOLOGY METHOD 05/26/2024 4:24 AM EDT [facility] HGB 7.1(L) 11.2 - 15.7 g/dL LAB HEMATOLOGY METHOD 05/26/2024 4:24 AM EDT [facility] HCT 22.4(L) 34.0 - 45.0 % LAB HEMATOLOGY METHOD 05/26/2024 4:24 AM EDT [facility] Platelet Count 378(H) 155 - 369 10*3/uL LAB HEMATOLOGY METHOD 05/26/2024 4:24 AM EDT [facility] MCV 95 79 - 98 fL LAB HEMATOLOGY METHOD 05/26/2024 4:24 AM EDT [facility] MCH 30.2 26.0 - 32.0 pg LAB HEMATOLOGY METHOD 05/26/2024 4:24 AM EDT [facility] MCHC 31.7 30.7 - 35.5 g/dL LAB HEMATOLOGY METHOD 05/26/2024 4:24 AM EDT [facility] RDW 16.7(H) 11.5 - 14.5 % LAB HEMATOLOGY METHOD 05/26/2024 4:24 AM EDT [facility] MPV 10.2 8.8 - 12.5 fL LAB HEMATOLOGY METHOD 05/26/2024 4:24 AM EDT [facility] nRBC 0.3(H) <=0.0 per 100 WBCs LAB HEMATOLOGY METHOD 05/26/2024 4:24 AM EDT [facility] Differential Type Manual LAB HEMATOLOGY METHOD 05/26/2024 4:24 AM EDT [facility] Blood Venous blood specimen / Unknown Venipuncture / Unknown 05/26/2024 3:27 AM EDT 05/26/2024 3:38 AM EDT Narrative [facility] - 05/26/2024 4:24 AM EDT Therapeutic decision making should be based on absolute values, rather than percentages. The previously reported component Neutrophils % is no longer being reported.The previously reported component Lymphocytes % is no longer being reported.The previously reported component Monocytes % is no longer being reported.The previously reported component Eosinophils % is no longer being reported.The previously reported component Basophils % is no longer being reported.The previously reported component Immature Granulocytes % is no longer being reported.The previously reported component Absolute Neutrophils is no longer being reported.The previously reported component Absolute Lymphocytes is no longer being reported.The previously reported component Absolute Monocytes is no longer being reported.The previously reported component Absolute Eosinophils is no longer being reported.The previously reported component Absolute Basophils is no longer being reported.The previously reported component Absolute Immature Granulocytes is no longer being reported. us Maite Austin MD LAB BLOOD ORDERABLES Final Resu lt [facility] [address] [place] [address] * XR Chest 1 View (05/26/2024 2:09 AM EDT) Anatomical Region Laterality Modality Chest Digital Radiogra phy Impressions 05/26/2024 10:52 AM EDT Interval removal of an enteric tube. Stable left pleural effusion with interval increase in left basilar atelectasis. CRITICAL RESULT: No. COMMUNICATION: Per this written report. By electronically signing this report, I, the attending physician, attest that I have personally reviewed the images/data for the above examination(s) and agree with the final edited report. Drafted by Db Rodríguez MD on 05/26/2024 10:32 AM Final report signed by Zahraa Berger MD on 05/26/2024 10:52 AM Narrative 05/26/2024 10:52 AM EDT CLINICAL INDICATION: evaluation TECHNIQUE: XR CHEST 1 VIEW COMPARISON: 05/25/2024 FINDINGS: Interval removal of enteric tube. The mediastinal and cardiac contours are stable. Stable left pleural effusion with an interval increase in associated basilar atelectasis. No new consolidation or pneumothorax. No right pleural effusion. Procedure Note Zahraa Berger MD - 05/26/2024 CLINICAL INDICATION: evaluation TECHNIQUE: XR CHEST 1 VIEW COMPARISON: 05/25/2024 FINDINGS: Interval removal of enteric tube. The mediastinal and cardiac contours arestable. Stable left pleural effusion with an interval increase inassociated basilar atelectasis. No new consolidation or pneumothorax. Noright pleural effusion. IMPRESSION: Interval removal of an enteric tube. Stable left pleural effusion withinterval increase in left basilar atelectasis. CRITICAL RESULT: No. COMMUNICATION: Per this written report. By electronically signing this report, I, the attending physician, attestthat I have personally reviewed the images/data for the aboveexamination(s) and agree with the final edited report. Drafted by Db Rodríguez MD on 05/26/2024 10:32 AM Final report signed by Zahraa Berger MD on 05/26/2024 10:52 AM Maite Austin MD IMG XR PROCEDURES Final Result * (ABNORMAL) Hemoglobin and Hematocrit, Blood (05/25/2024 8:32 PM EDT) HGB 7.2(L) 11.2 - 15.7 g/dL LAB HEMATOLOGY METHOD 05/25/2024 8:51 PM EDT [facility] HCT 23.1(L) 34.0 - 45.0 % LAB HEMATOLOGY METHOD 05/25/2024 8:51 PM EDT [facility] Blood Arterial blood specimen / Unknown Venipuncture / Unknown 05/25/2024 8:32 PM EDT 05/25/2024 8:45 PM EDT Lora Llanes APRN LAB BLOOD ORDERABLES Final Result Performing Organization Address City/[facility] Co de Phone Number [facility] [address] [place] [address] * (ABNORMAL) POCT glucose meter (05/25/2024 6:17 PM EDT) [facility] POCT Glucose 116(H) 74 - 99 mg/dL 05/25/2024 6:19 PM EDT [facility] Comment:Accuracy of a glucos e result obtained from a capillary whole blood specimen relies upon adequate, non-compromised capillary blood flow. If the capillary glucose result is not consistent with the patient's clinical signs and symptoms, glucose testing should be repeated with either an arterial or venous sample on the glucometer or sent to the main labortory for testing. Comment 05/25/2024 6:19 PM EDT [facility] Field Hockey Coach ID Sp Singer 05/25/2024 6:19 PM EDT [facility] Device ID [id number] 05/25/2024 6:19 PM EDT [facility] Specimen Type POC Arterial 05/25/2024 6:19 PM EDT [facility] Blood Arterial blood specimen / Unknown 05/25/2024 6:17 PM EDT 05/25/2024 6:19 PM EDT us Maite Austin MD LAB POINT OF CARE TE ST DOCKED DEVICE UNSOLICITED RESULTS Final Result Performing Organization Address City/[facility]/ZIP Co de Phone Number [facility] [address] [place] [address] * (ABNORMAL) Hemoglobin and hematocrit, blood (05/25/2024 1:55 PM EDT) [facility] HGB 7.4(L) 11.2 - 15.7 g/dL LAB HEMATOLOGY METHOD 05/25/2024 2:26 PM EDT [facility] HCT 23.6(L) 34.0 - 45.0 % LAB HEMATOLOGY METHOD 05/25/2024 2:26 PM EDT [facility] Blood Arterial blood specimen / Unknown Arterial Line / Unknown 05/25/2024 1:55 PM EDT 05/25/2024 2:19 PM EDT us Maite Austin MD LAB BLOOD ORDERABLES Final Resu lt [facility] [address] [place] [address] * (ABNORMAL) Hemogram (CBC) (05/25/2024 8:11 AM EDT) WBC Count 41.23(H) 3.70 - 10.30 10*3/uL LAB HEMATOLOGY METHOD 05/25/2024 8:28 AM EDT [facility] RBC Count 2.42(L) 3.90 - 5.20 10*6/uL LAB HEMATOLOGY METHOD 05/25/2024 8:28 AM EDT [facility] HGB 7.2(L) 11.2 - 15.7 g/dL LAB HEMATOLOGY METHOD 05/25/2024 8:28 AM EDT [facility] HCT 22.4(L) 34.0 - 45.0 % LAB HEMATOLOGY METHOD 05/25/2024 8:28 AM EDT [facility] Platelet Count 373(H) 155 - 369 10*3/uL LAB HEMATOLOGY METHOD 05/25/2024 8:28 AM EDT [facility] MCV 93 79 - 98 fL LAB HEMATOLOGY METHOD 05/25/2024 8:28 AM EDT [facility] MCH 29.8 26.0 - 32.0 pg LAB HEMATOLOGY METHOD 05/25/2024 8:28 AM EDT [facility] MCHC 32.1 30.7 - 35.5 g/dL LAB HEMATOLOGY METHOD 05/25/2024 8:28 AM EDT [facility] RDW 16.3(H) 11.5 - 14.5 % LAB HEMATOLOGY METHOD 05/25/2024 8:28 AM EDT [facility] MPV 10.3 8.8 - 12.5 fL LAB HEMATOLOGY METHOD 05/25/2024 8:28 AM EDT [facility] nRBC 0.5(H) <=0.0 per 100 WBCs LAB HEMATOLOGY METHOD 05/25/2024 8:28 AM EDT [facility] Blood Arterial blood specimen / Unknown Arterial Line / Unknown 05/25/2024 8:11 AM EDT 05/25/2024 8:19 AM EDT us Lora Llanes [employer] LAB BLOOD ORDERABLES Final Result [facility] [address] [place] [address] * (ABNORMAL) POCT glucose meter (05/25/2024 6:26 AM EDT) [facility] POCT Glucose 121(H) 74 - 99 mg/dL 05/25/2024 6:28 AM EDT [facility] Comment:Accuracy of a glucos e result obtained from a capillary whole blood specimen relies upon adequate, non-compromised capillary blood flow. If the capillary glucose result is not consistent with the patient's clinical signs and symptoms, glucose testing should be repeated with either an arterial or venous sample on the glucometer or sent to the main labortory for testing. Comment 05/25/2024 6:28 AM EDT [facility] Field Hockey Coach ID Vivien Gilbert 05/25/2024 6:28 AM EDT [facility] Device ID [id number] 05/25/2024 6:28 AM EDT [facility] Specimen Type POC Arterial 05/25/2024 6:28 AM EDT [facility] Blood Arterial blood specimen / Unknown 05/25/2024 6:26 AM EDT 05/25/2024 6:28 AM EDT us Maite Austin MD LAB POINT OF CARE TE ST DOCKED DEVICE UNSOLICITED RESULTS Final Result [facility] [address] [place] [address] * XR Chest 1 View (05/25/2024 3:07 AM EDT) Anatomical Region Laterality Modality Chest Digital Radiogra phy Impressions 05/25/2024 8:59 AM EDT No significant interval changes. CRITICAL RESULT: No. COMMUNICATION: Per this written report. By electronically signing this report, I, the attending physician, attest that I have personally reviewed the images/data for the above examination(s) and agree with the final edited report. Drafted by Mino Hobbs MD on 05/25/2024 8:09 AM Final report signed by Champ Oden MD on 05/25/2024 8:59 AM Narrative 05/25/2024 8:59 AM EDT CLINICAL INDICATION: evaluation TECHNIQUE: XR CHEST 1 VIEW COMPARISON: May 24, 2024 FINDINGS: Stable support hardware. Stable cardiomediastinal silhouette. No new consolidation. Persistent layering left-sided pleural effusion. No pneumothorax. Procedure Note Champ Oden MD - 05/25/2024 CLINICAL INDICATION: evaluation TECHNIQUE: XR CHEST 1 VIEW COMPARISON: May 24, 2024 FINDINGS: Stable support hardware. Stable cardiomediastinal silhouette. No newconsolidation. Persistent layering left-sided pleural effusion. Nopneumothorax. IMPRESSION: No significant interval changes. CRITICAL RESULT: No. COMMUNICATION: Per this written report. By electronically signing this report, I, the attending physician, attestthat I have personally reviewed the images/data for the aboveexamination(s) and agree with the final edited report. Drafted by Mino Hobbs MD on 05/25/2024 8:09 AM Final report signed by Champ Oden MD on 05/25/2024 8:59 AM Maite Austin MD IMG XR PROCEDURES Final Result * Morphology (05/25/2024 2:45 AM EDT) Polychromasia Moderate LAB HEMATOLOGY METHOD 05/25/2024 4:34 AM EDT [facility] Echinocytes Present LAB HEMATOLOGY METHOD 05/25/2024 4:34 AM EDT [facility] RBC Morphology Slide Reviewed LAB HEMATOLOGY METHOD 05/25/2024 4:34 AM EDT [facility] Platelet Estimate Platelet smear estimate consistent with automated count LAB HEMATOLOGY METHOD 05/25/2024 4:34 AM EDT [facility] Blood Venous blood specimen / Unknown Venipuncture / Unknown 05/25/2024 2:45 AM EDT 05/25/2024 2:52 AM EDT us Maite Austin MD LAB BLOOD ORDERABLES Final Resu lt [facility] [address] [place] [address] * (ABNORMAL) Manual Differential (05/25/2024 2:45 AM EDT) Blasts % 0 % LAB HEMATOLOGY METHOD 05/25/2024 4:34 AM EDT [facility] Promyelocytes % 0 % LAB HEMATOLOGY METHOD 05/25/2024 4:34 AM EDT [facility] Myelocytes % 1 % LAB HEMATOLOGY METHOD 05/25/2024 4:34 AM EDT [facility] Metamyelocytes % 5 % LAB HEMATOLOGY METHOD 05/25/2024 4:34 AM EDT [facility] Neutrophils % 80 % LAB HEMATOLOGY METHOD 05/25/2024 4:34 AM EDT [facility] Lymphocytes % 5 % LAB HEMATOLOGY METHOD 05/25/2024 4:34 AM EDT [facility] Reactive Lymphocytes % 0 % LAB HEMATOLOGY METHOD 05/25/2024 4:34 AM EDT [facility] Monocytes % 8 % LAB HEMATOLOGY METHOD 05/25/2024 4:34 AM EDT [facility] Eosinophils % 1 % LAB HEMATOLOGY METHOD 05/25/2024 4:34 AM EDT [facility] Basophils % 0 % LAB HEMATOLOGY METHOD 05/25/2024 4:34 AM EDT [facility] Blasts Absolute 0.00 10*3/UL LAB HEMATOLOGY METHOD 05/25/2024 4:34 AM EDT [facility] Promyelocytes Absolute 0.00 10*3/uL LAB HEMATOLOGY METHOD 05/25/2024 4:34 AM EDT [facility] Myelocytes Absolute 0.42 10*3/uL LAB HEMATOLOGY METHOD 05/25/2024 4:34 AM EDT [facility] Metamyelocytes Absolute 2.09 10*3/uL LAB HEMATOLOGY METHOD 05/25/2024 4:34 AM EDT [facility] Neutrophils Absolute 33.52(H) 1.60 - 6.10 10*3/uL LAB HEMATOLOGY METHOD 05/25/2024 4:34 AM EDT [facility] Lymphocytes Absolute 2.09 1.20 - 3.90 10*3/uL LAB HEMATOLOGY METHOD 05/25/2024 4:34 AM EDT [facility] Reactive Lymphocytes Absolute 0.00 10*3/uL LAB HEMATOLOGY METHOD 05/25/2024 4:34 AM EDT [facility] Monocytes Absolute 3.35(H) 0.30 - 0.90 10*3/uL LAB HEMATOLOGY METHOD 05/25/2024 4:34 AM EDT [facility] Eosinophils Absolute 0.42 0.00 - 0.50 10*3/uL LAB HEMATOLOGY METHOD 05/25/2024 4:34 AM EDT [facility] Basophils Absolute 0.00 0.00 - 0.10 10*3/uL LAB HEMATOLOGY METHOD 05/25/2024 4:34 AM EDT [facility] Blood Venous blood specimen / Unknown Venipuncture / Unknown 05/25/2024 2:45 AM EDT 05/25/2024 2:52 AM EDT us Maite Austin MD LAB BLOOD ORDERABLES Final Resu lt [facility] [address] [place] [address] * (ABNORMAL) Renal Function Panel, Plasma (05/25/2024 2:45 AM EDT) Glucose, Plasma 126(H) 74 - 99 mg/dL 05/25/2024 3:29 AM EDT [facility] BUN, Plasma 20 7 - 21 mg/dL 05/25/2024 3:29 AM EDT [facility] Creatinine, Plasma 0.91 0.60 - 1.10 mg/dL 05/25/2024 3:29 AM EDT [facility] BUN/Creatinine Ratio 22 05/25/2024 3:29 AM EDT [facility] Sodium, Plasma 138 136 - 145 mmol/L 05/25/2024 3:29 AM EDT [facility] Potassium, Plasma 5.0(H) 3.6 - 4.9 mmol/L 05/25/2024 3:29 AM EDT [facility] Chloride, Plasma 107 97 - 107 mmol/L 05/25/2024 3:29 AM EDT [facility] CO2, Plasma 25 22 - 29 mmol/L 05/25/2024 3:29 AM EDT [facility] Anion Gap 6 6 - 16 mmol/L 05/25/2024 3:29 AM EDT [facility] Total Calcium, Plasma 7.7(L) 8.9 - 10.2 mg/dL 05/25/2024 3:29 AM EDT [facility] Phosphorus, Plasma 3.5 2.5 - 4.5 mg/dL 05/25/2024 3:29 AM EDT [facility] Albumin, Plasma 1.9(L) 3.5 - 5.2 g/dL 05/25/2024 3:29 AM EDT [facility] eGFRcr 75.1 mL/min/1.7 3m*2 05/25/2024 3:29 AM EDT [facility] Comment:Reported eGFRcr in m L/min/1.73m2 is based the CKD-EPI 2020 equation that does not use a race coefficient. Blood Venous blood specimen / Unknown Venipuncture / Unknown 05/25/2024 2:45 AM EDT 05/25/2024 2:52 AM EDT Lora Llanes APRN LAB BLOOD ORDERABLES Final Result [facility] [address] [place] [address] * Magnesium, Plasma (05/25/2024 2:45 AM EDT) Magnesium, Plasma 2.4 1.9 - 2.4 mg/dL 05/25/2024 3:29 AM EDT [facility] Blood Venous blood specimen / Unknown Venipuncture / Unknown 05/25/2024 2:45 AM EDT 05/25/2024 2:52 AM EDT us Maite Austin MD LAB BLOOD ORDERABLES Final Resu lt [facility] [address] [place] [address] * (ABNORMAL) CBC and Differential (05/25/2024 2:45 AM EDT) WBC Count 41.90(H) 3.70 - 10.30 10*3/uL LAB HEMATOLOGY METHOD 05/25/2024 4:34 AM EDT [facility] RBC Count 2.50(L) 3.90 - 5.20 10*6/uL LAB HEMATOLOGY METHOD 05/25/2024 4:34 AM EDT [facility] HGB 7.5(L) 11.2 - 15.7 g/dL LAB HEMATOLOGY METHOD 05/25/2024 4:34 AM EDT [facility] HCT 23.1(L) 34.0 - 45.0 % LAB HEMATOLOGY METHOD 05/25/2024 4:34 AM EDT [facility] Platelet Count 352 155 - 369 10*3/uL LAB HEMATOLOGY METHOD 05/25/2024 4:34 AM EDT [facility] MCV 92 79 - 98 fL LAB HEMATOLOGY METHOD 05/25/2024 4:34 AM EDT [facility] MCH 30.0 26.0 - 32.0 pg LAB HEMATOLOGY METHOD 05/25/2024 4:34 AM EDT [facility] MCHC 32.5 30.7 - 35.5 g/dL LAB HEMATOLOGY METHOD 05/25/2024 4:34 AM EDT [facility] RDW 16.2(H) 11.5 - 14.5 % LAB HEMATOLOGY METHOD 05/25/2024 4:34 AM EDT [facility] MPV 10.3 8.8 - 12.5 fL LAB HEMATOLOGY METHOD 05/25/2024 4:34 AM EDT [facility] nRBC 0.6(H) <=0.0 per 100 WBCs LAB HEMATOLOGY METHOD 05/25/2024 4:34 AM EDT [facility] Differential Type Manual LAB HEMATOLOGY METHOD 05/25/2024 4:34 AM EDT [facility] Blood Venous blood specimen / Unknown Venipuncture / Unknown 05/25/2024 2:45 AM EDT 05/25/2024 2:52 AM EDT Narrative [facility] - 05/25/2024 4:34 AM EDT Therapeutic decision making should be based on absolute values, rather than percentages. The previously reported component Neutrophils % is no longer being reported.The previously reported component Lymphocytes % is no longer being reported.The previously reported component Monocytes % is no longer being reported.The previously reported component Eosinophils % is no longer being reported.The previously reported component Basophils % is no longer being reported.The previously reported component Immature Granulocytes % is no longer being reported.The previously reported component Absolute Neutrophils is no longer being reported.The previously reported component Absolute Lymphocytes is no longer being reported.The previously reported component Absolute Monocytes is no longer being reported.The previously reported component Absolute Eosinophils is no longer being reported.The previously reported component Absolute Basophils is no longer being reported.The previously reported component Absolute Immature Granulocytes is no longer being reported. us Maite Austin MD LAB BLOOD ORDERABLES Final Resu lt [facility] [address] [place] [address] * [place] [facility], E/M 30-74 MINUTES (05/24/2024 11:04 AM EDT) Narrative Edson Lewis MD - 05/24/2024 11:04 AM EDT Edson Lewis MD 05/24/2024 11:26 AM Critical Care Performed by: Edson Lewis MD Authorized by: Edson Lewis MD Critical care provider statement: Critical care time (minutes): 38 Critical care time was exclusive of: Separately billable procedures and treating other patients and teaching time Critical care was time spent personally by me on the following activities: Development of treatment plan with patient or surrogate, ordering and performing treatments and interventions, discussions with consultants, ordering and review of laboratory studies, discussions with primary provider, ordering and review of radiographic studies, evaluation of patient's response to treatment and examination of patient Critical care statement: I saw and evaluated the patient with the resident/ fellow. I discussed the case with the resident/ fellow and agree with the findings and plan as documented. us Edson Lewis MD IN CLINIC/BEDSIDE ORDERABL ES Final Result * Morphology (05/24/2024 10:18 AM EDT) Polychromasia Moderate LAB HEMATOLOGY METHOD 05/24/2024 1:46 PM EDT [facility] Echinocytes Present LAB HEMATOLOGY METHOD 05/24/2024 1:46 PM EDT [facility] RBC Morphology Slide Reviewed LAB HEMATOLOGY METHOD 05/24/2024 1:46 PM EDT [facility] Platelet Estimate Platelet smear estimate consistent with automated count LAB HEMATOLOGY METHOD 05/24/2024 1:46 PM EDT [facility] Blood Venous blood specimen / Unknown Venipuncture / Unknown 05/24/2024 10:18 AM EDT 05/24/2024 10:48 AM EDT us Maite Austin MD LAB BLOOD ORDERABLES Final Resu lt [facility] [address] [place] [address] * (ABNORMAL) Manual Differential (05/24/2024 10:18 AM EDT) Blasts % 0 % LAB HEMATOLOGY METHOD 05/24/2024 1:46 PM EDT [facility] Promyelocytes % 0 % LAB HEMATOLOGY METHOD 05/24/2024 1:46 PM EDT [facility] Myelocytes % 2 % LAB HEMATOLOGY METHOD 05/24/2024 1:46 PM EDT [facility] Metamyelocytes % 4 % LAB HEMATOLOGY METHOD 05/24/2024 1:46 PM EDT [facility] Neutrophils % 80 % LAB HEMATOLOGY METHOD 05/24/2024 1:46 PM EDT [facility] Lymphocytes % 8 % LAB HEMATOLOGY METHOD 05/24/2024 1:46 PM EDT [facility] Reactive Lymphocytes % 0 % LAB HEMATOLOGY METHOD 05/24/2024 1:46 PM EDT [facility] Monocytes % 6 % LAB HEMATOLOGY METHOD 05/24/2024 1:46 PM EDT [facility] Eosinophils % 0 % LAB HEMATOLOGY METHOD 05/24/2024 1:46 PM EDT [facility] Basophils % 0 % LAB HEMATOLOGY METHOD 05/24/2024 1:46 PM EDT [facility] Blasts Absolute 0.00 10*3/UL LAB HEMATOLOGY METHOD 05/24/2024 1:46 PM EDT [facility] Promyelocytes Absolute 0.00 10*3/uL LAB HEMATOLOGY METHOD 05/24/2024 1:46 PM EDT [facility] Myelocytes Absolute 0.70 10*3/uL LAB HEMATOLOGY METHOD 05/24/2024 1:46 PM EDT [facility] Metamyelocytes Absolute 1.41 10*3/uL LAB HEMATOLOGY METHOD 05/24/2024 1:46 PM EDT [facility] Neutrophils Absolute 28.17(H) 1.60 - 6.10 10*3/uL LAB HEMATOLOGY METHOD 05/24/2024 1:46 PM EDT [facility] Lymphocytes Absolute 2.82 1.20 - 3.90 10*3/uL LAB HEMATOLOGY METHOD 05/24/2024 1:46 PM EDT [facility] Reactive Lymphocytes Absolute 0.00 10*3/uL LAB HEMATOLOGY METHOD 05/24/2024 1:46 PM EDT [facility] Monocytes Absolute 2.11(H) 0.30 - 0.90 10*3/uL LAB HEMATOLOGY METHOD 05/24/2024 1:46 PM EDT [facility] Eosinophils Absolute 0.00 0.00 - 0.50 10*3/uL LAB HEMATOLOGY METHOD 05/24/2024 1:46 PM EDT [facility] Basophils Absolute 0.00 0.00 - 0.10 10*3/uL LAB HEMATOLOGY METHOD 05/24/2024 1:46 PM EDT [facility] Blood Venous blood specimen / Unknown Venipuncture / Unknown 05/24/2024 10:18 AM EDT 05/24/2024 10:48 AM EDT us Maite Austin MD LAB BLOOD ORDERABLES Final Resu lt [facility] [address] [place] [address] * (ABNORMAL) Basic metabolic panel (05/24/2024 10:18 AM EDT) [facility] Glucose, Plasma 182(H) 74 - 99 mg/dL 05/24/2024 11:13 AM EDT [facility] BUN, Plasma 28(H) 7 - 21 mg/dL 05/24/2024 11:13 AM EDT [facility] Creatinine, Plasma 1.18(H) 0.60 - 1.10 mg/dL 05/24/2024 11:13 AM EDT [facility] BUN/Creatinine Ratio 24 05/24/2024 11:13 AM EDT [facility] Sodium, Plasma 137 136 - 145 mmol/L 05/24/2024 11:13 AM EDT [facility] Potassium, Plasma 5.0(H) 3.6 - 4.9 mmol/L 05/24/2024 11:13 AM EDT [facility] Chloride, Plasma 106 97 - 107 mmol/L 05/24/2024 11:13 AM EDT [facility] CO2, Plasma 21(L) 22 - 29 mmol/L 05/24/2024 11:13 AM EDT [facility] Anion Gap 10 6 - 16 mmol/L 05/24/2024 11:13 AM EDT [facility] Total Calcium, Plasma 8.1(L) 8.9 - 10.2 mg/dL 05/24/2024 11:13 AM EDT [facility] eGFRcr 55.0 mL/min/1.7 3m*2 05/24/2024 11:13 AM EDT [facility] Comment:Reported eGFRcr in m L/min/1.73m2 is based the CKD-EPI 2020 equation that does not use a race coefficient. Blood Venous blood specimen / Unknown Venipuncture / Unknown 05/24/2024 10:18 AM EDT 05/24/2024 10:42 AM EDT us Maite Austin MD LAB BLOOD ORDERABLES Final Resu lt [facility] [address] [place] [address] * (ABNORMAL) Magnesium, Plasma (05/24/2024 10:18 AM EDT) Magnesium, Plasma 2.7(H) 1.9 - 2.4 mg/dL 05/24/2024 11:13 AM EDT [facility] Blood Venous blood specimen / Unknown Venipuncture / Unknown 05/24/2024 10:18 AM EDT 05/24/2024 10:42 AM EDT us Maite Austin MD LAB BLOOD ORDERABLES Final Resu lt [facility] [address] [place] [address] * (ABNORMAL) CBC and Differential (05/24/2024 10:18 AM EDT) Pathologist [facility] WBC Count 35.21(H) 3.70 - 10.30 10*3/uL LAB HEMATOLOGY METHOD 05/24/2024 1:46 PM EDT [facility] RBC Count 2.93(L) 3.90 - 5.20 10*6/uL LAB HEMATOLOGY METHOD 05/24/2024 1:46 PM EDT [facility] HGB 8.7(L) 11.2 - 15.7 g/dL LAB HEMATOLOGY METHOD 05/24/2024 1:46 PM EDT [facility] HCT 26.8(L) 34.0 - 45.0 % LAB HEMATOLOGY METHOD 05/24/2024 1:46 PM EDT [facility] Platelet Count 375(H) 155 - 369 10*3/uL LAB HEMATOLOGY METHOD 05/24/2024 1:46 PM EDT [facility] MCV 92 79 - 98 fL LAB HEMATOLOGY METHOD 05/24/2024 1:46 PM EDT [facility] MCH 29.7 26.0 - 32.0 pg LAB HEMATOLOGY METHOD 05/24/2024 1:46 PM EDT [facility] MCHC 32.5 30.7 - 35.5 g/dL LAB HEMATOLOGY METHOD 05/24/2024 1:46 PM EDT [facility] RDW 15.8(H) 11.5 - 14.5 % LAB HEMATOLOGY METHOD 05/24/2024 1:46 PM EDT [facility] MPV 10.3 8.8 - 12.5 fL LAB HEMATOLOGY METHOD 05/24/2024 1:46 PM EDT [facility] nRBC 0.4(H) <=0.0 per 100 WBCs LAB HEMATOLOGY METHOD 05/24/2024 1:46 PM EDT [facility] Differential Type Manual LAB HEMATOLOGY METHOD 05/24/2024 1:46 PM EDT [facility] Blood Venous blood specimen / Unknown Venipuncture / Unknown 05/24/2024 10:18 AM EDT 05/24/2024 10:48 AM EDT Narrative [facility] - 05/24/2024 1:46 PM EDT Therapeutic decision making should be based on absolute values, rather than percentages. The previously reported component Neutrophils % is no longer being reported.The previously reported component Lymphocytes % is no longer being reported.The previously reported component Monocytes % is no longer being reported.The previously reported component Eosinophils % is no longer being reported.The previously reported component Basophils % is no longer being reported.The previously reported component Immature Granulocytes % is no longer being reported.The previously reported component Absolute Neutrophils is no longer being reported.The previously reported component Absolute Lymphocytes is no longer being reported.The previously reported component Absolute Monocytes is no longer being reported.The previously reported component Absolute Eosinophils is no longer being reported.The previously reported component Absolute Basophils is no longer being reported.The previously reported component Absolute Immature Granulocytes is no longer being reported. us Maite Austin MD LAB BLOOD ORDERABLES Final Resu lt [facility] [address] [place] [address] * XR Chest 1 View (05/24/2024 8:51 AM EDT) Anatomical Region Laterality Modality Chest Digital Radiogra phy Impressions 05/24/2024 9:10 AM EDT No significant interval changes. CRITICAL RESULT: No. COMMUNICATION: Per this written report. By electronically signing this report, I, the attending physician, attest that I have personally reviewed the images/data for the above examination(s) and agree with the final edited report. Drafted by Mino Hobbs MD on 05/24/2024 8:56 AM Final report signed by Edson Ambrose MD on 05/24/2024 9:10 AM Narrative 05/24/2024 9:10 AM EDT CLINICAL INDICATION: evaluation TECHNIQUE: XR CHEST 1 VIEW COMPARISON: May 23, 2024 FINDINGS: Stable support hardware. Stable cardiomediastinal silhouette. No new focal consolidation. Persistent layering left-sided pleural effusion. No pneumothorax. Procedure Note Edson Ambrose MD - 05/24/2024 CLINICAL INDICATION: evaluation TECHNIQUE: XR CHEST 1 VIEW COMPARISON: May 23, 2024 FINDINGS: Stable support hardware. Stable cardiomediastinal silhouette. No new focalconsolidation. Persistent layering left-sided pleural effusion. Nopneumothorax. IMPRESSION: No significant interval changes. CRITICAL RESULT: No. COMMUNICATION: Per this written report. By electronically signing this report, I, the attending physician, attestthat I have personally reviewed the images/data for the aboveexamination(s) and agree with the final edited report. Drafted by Mino Hobbs MD on 05/24/2024 8:56 AM Final report signed by Edson Ambrose MD on 05/24/2024 9:10 AM Maite Austin MD IMG XR PROCEDURES Final Result * (ABNORMAL) POCT glucose meter (05/24/2024 6:09 AM EDT) POCT Glucose 190(H) 74 - 99 mg/dL 05/24/2024 6:11 AM EDT [facility] Comment:Accuracy of a glucos e result obtained from a capillary whole blood specimen relies upon adequate, non-compromised capillary blood flow. If the capillary glucose result is not consistent with the patient's clinical signs and symptoms, glucose testing should be repeated with either an arterial or venous sample on the glucometer or sent to the main labortory for testing. Comment 05/24/2024 6:11 AM EDT [facility] Field Hockey Coach ID Bryanna Sullivan 05/25/19 6:11 AM EDT [facility] Device ID [id number] 05/24/2024 6:11 AM EDT [facility] Specimen Type POC Capillary 05/24/2024 6:11 AM EDT [facility] Blood Capillary blood specimen / Unknown 05/24/2024 6:09 AM EDT 05/24/2024 6:11 AM EDT us Maite Austin MD LAB POINT OF CARE TE ST DOCKED DEVICE UNSOLICITED RESULTS Final Result [facility] [address] [place] [address] * (ABNORMAL) Blood gas panel, arterial (05/23/2024 7:54 PM EDT) pH, Arterial 7.29(L) 7.35 - 7.45 LAB HEMATOLOGY METHOD 05/23/2024 8:04 PM EDT [facility] pCO2, Arterial 44 35 - 48 mmHg LAB HEMATOLOGY METHOD 05/23/2024 8:04 PM EDT [facility] pO2, Arterial 182(H) 83 - 108 mmHg LAB HEMATOLOGY METHOD 05/23/2024 8:04 PM EDT [facility] SO2, Measured, Arterial 100(H) 94 - 98 % LAB HEMATOLOGY METHOD 05/23/2024 8:04 PM EDT [facility] Base Excess, Arterial -5.1(L) -2.0 - 3.0 mmol/L LAB HEMATOLOGY METHOD 05/23/2024 8:04 PM EDT [facility] Bicarbonate, Calculated, Arterial 21(L) 22 - 26 mmol/L LAB HEMATOLOGY METHOD 05/23/2024 8:04 PM EDT [facility] Hematocrit, Whole Blood 34.4 34.0 - 45.0 % LAB HEMATOLOGY METHOD 05/23/2024 8:04 PM EDT [facility] Sodium, Whole Blood 133(L) 136 - 145 mmol/L LAB HEMATOLOGY METHOD 05/23/2024 8:04 PM EDT [facility] Potassium, Whole Blood 5.0(H) 3.6 - 4.9 mmol/L LAB HEMATOLOGY METHOD 05/23/2024 8:04 PM EDT [facility] Chloride, Whole Blood 107 97 - 107 mmol/L LAB HEMATOLOGY METHOD 05/23/2024 8:04 PM EDT [facility] Glucose, Whole Blood 266(H) 74 - 99 mg/dL LAB HEMATOLOGY METHOD 05/23/2024 8:04 PM EDT [facility] Ionized Calcium, Whole Blood 4.2(L) 4.6 - 5.1 mg/dL LAB HEMATOLOGY METHOD 05/23/2024 8:04 PM EDT [facility] Lactate, Arterial, Whole Blood 2.0(H) 0.5 - 1.6 mmol/L LAB HEMATOLOGY METHOD 05/23/2024 8:04 PM EDT [facility] Blood Arterial blood specimen / Unknown Arterial Puncture / Unknown 05/23/2024 7:54 PM EDT 05/23/2024 8:02 PM EDT us Maite Austin MD LAB BLOOD ORDERABLES Final Resu lt Performing Organization Address [facility]/ZIP Co de Phone Number [facility] [address] [place] [address] * Morphology (05/23/2024 7:39 PM EDT) Polychromasia Moderate LAB HEMATOLOGY METHOD 05/23/2024 8:47 PM EDT [facility] Echinocytes Present LAB HEMATOLOGY METHOD 05/23/2024 8:47 PM EDT [facility] RBC Morphology Slide Reviewed LAB HEMATOLOGY METHOD 05/23/2024 8:47 PM EDT [facility] Platelet Estimate Platelet smear estimate consistent with automated count LAB HEMATOLOGY METHOD 05/23/2024 8:47 PM EDT [facility] Blood Venous blood specimen / Unknown Venipuncture / Unknown 05/23/2024 7:39 PM EDT 05/23/2024 7:45 PM EDT us Reyna Obregon APRN LAB BLOOD ORDERABLES Namrata l Result Performing Organization Address City/[facility]/ZIP Co de Phone Number [facility] [address] [place] [address] * (ABNORMAL) Manual Differential (05/23/2024 7:39 PM EDT) Blasts % 0 % LAB HEMATOLOGY METHOD 05/23/2024 8:47 PM EDT [facility] Promyelocytes % 0 % LAB HEMATOLOGY METHOD 05/23/2024 8:47 PM EDT [facility] Myelocytes % 8 % LAB HEMATOLOGY METHOD 05/23/2024 8:47 PM EDT [facility] Metamyelocytes % 4 % LAB HEMATOLOGY METHOD 05/23/2024 8:47 PM EDT [facility] Neutrophils % 76 % LAB HEMATOLOGY METHOD 05/23/2024 8:47 PM EDT [facility] Lymphocytes % 6 % LAB HEMATOLOGY METHOD 05/23/2024 8:47 PM EDT [facility] Reactive Lymphocytes % 1 % LAB HEMATOLOGY METHOD 05/23/2024 8:47 PM EDT [facility] Monocytes % 4 % LAB HEMATOLOGY METHOD 05/23/2024 8:47 PM EDT [facility] Eosinophils % 1 % LAB HEMATOLOGY METHOD 05/23/2024 8:47 PM EDT [facility] Basophils % 0 % LAB HEMATOLOGY METHOD 05/23/2024 8:47 PM EDT [facility] Blasts Absolute 0.00 10*3/UL LAB HEMATOLOGY METHOD 05/23/2024 8:47 PM EDT [facility] Promyelocytes Absolute 0.00 10*3/uL LAB HEMATOLOGY METHOD 05/23/2024 8:47 PM EDT [facility] Myelocytes Absolute 2.59 10*3/uL LAB HEMATOLOGY METHOD 05/23/2024 8:47 PM EDT [facility] Metamyelocytes Absolute 1.29 10*3/uL LAB HEMATOLOGY METHOD 05/23/2024 8:47 PM EDT [facility] Neutrophils Absolute 24.57(H) 1.60 - 6.10 10*3/uL LAB HEMATOLOGY METHOD 05/23/2024 8:47 PM EDT [facility] Lymphocytes Absolute 1.94 1.20 - 3.90 10*3/uL LAB HEMATOLOGY METHOD 05/23/2024 8:47 PM EDT [facility] Reactive Lymphocytes Absolute 0.32 10*3/uL LAB HEMATOLOGY METHOD 05/23/2024 8:47 PM EDT [facility] Monocytes Absolute 1.29(H) 0.30 - 0.90 10*3/uL LAB HEMATOLOGY METHOD 05/23/2024 8:47 PM EDT [facility] Eosinophils Absolute 0.32 0.00 - 0.50 10*3/uL LAB HEMATOLOGY METHOD 05/23/2024 8:47 PM EDT [facility] Basophils Absolute 0.00 0.00 - 0.10 10*3/uL LAB HEMATOLOGY METHOD 05/23/2024 8:47 PM EDT [facility] Blood Venous blood specimen / Unknown Venipuncture / Unknown 05/23/2024 7:39 PM EDT 05/23/2024 7:45 PM EDT us Reyna Obregon [employer] LAB BLOOD ORDERABLES Namrata l Result [facility] [address] [place] [address] * (ABNORMAL) Renal Function Panel, Plasma (05/23/2024 7:39 PM EDT) Glucose, Plasma 280(H) 74 - 99 mg/dL 05/23/2024 8:14 PM EDT [facility] BUN, Plasma 20 7 - 21 mg/dL 05/23/2024 8:14 PM EDT [facility] Creatinine, Plasma 1.06 0.60 - 1.10 mg/dL 05/23/2024 8:14 PM EDT [facility] BUN/Creatinine Ratio 19 05/23/2024 8:14 PM EDT [facility] Sodium, Plasma 137 136 - 145 mmol/L 05/23/2024 8:14 PM EDT [facility] Potassium, Plasma 5.5(H) 3.6 - 4.9 mmol/L 05/23/2024 8:14 PM EDT [facility] Chloride, Plasma 107 97 - 107 mmol/L 05/23/2024 8:14 PM EDT [facility] CO2, Plasma 20(L) 22 - 29 mmol/L 05/23/2024 8:14 PM EDT [facility] Anion Gap 10 6 - 16 mmol/L 05/23/2024 8:14 PM EDT [facility] Total Calcium, Plasma 7.5(L) 8.9 - 10.2 mg/dL 05/23/2024 8:14 PM EDT [facility] Phosphorus, Plasma 6.4(H) 2.5 - 4.5 mg/dL 05/23/2024 8:14 PM EDT [facility] Albumin, Plasma 1.7(L) 3.5 - 5.2 g/dL 05/23/2024 8:14 PM EDT [facility] eGFRcr 62.6 mL/min/1.7 3m*2 05/23/2024 8:14 PM EDT [facility] Comment:Reported eGFRcr in m L/min/1.73m2 is based the CKD-EPI 2020 equation that does not use a race coefficient. Blood Venous blood specimen / Unknown Venipuncture / Unknown 05/23/2024 7:39 PM EDT 05/23/2024 7:45 PM EDT Maite Austin MD LAB BLOOD ORDERABLES Final Resu lt Performing Organization Address [facility]/ZIP Co de Phone Number [facility] [address] [place] [address] * (ABNORMAL) Magnesium (05/23/2024 7:39 PM EDT) Magnesium, Plasma 1.8(L) 1.9 - 2.4 mg/dL 05/23/2024 8:14 PM EDT [facility] Blood Venous blood specimen / Unknown Venipuncture / Unknown 05/23/2024 7:39 PM EDT 05/23/2024 7:45 PM EDT Maite Austin MD LAB BLOOD ORDERABLES Final Resu lt Performing Organization Address City/[facility]/ZIP Co de Phone Number [facility] [address] [place] [address] * (ABNORMAL) Comprehensive metabolic panel (05/23/2024 7:39 PM EDT) Glucose, Plasma 280(H) 74 - 99 mg/dL 05/23/2024 8:14 PM EDT [facility] BUN, Plasma 20 7 - 21 mg/dL 05/23/2024 8:14 PM EDT [facility] Creatinine, Plasma 1.06 0.60 - 1.10 mg/dL 05/23/2024 8:14 PM EDT [facility] BUN/Creatinine Ratio 19 05/23/2024 8:14 PM EDT [facility] Sodium, Plasma 137 136 - 145 mmol/L 05/23/2024 8:14 PM EDT [facility] Potassium, Plasma 5.5(H) 3.6 - 4.9 mmol/L 05/23/2024 8:14 PM EDT [facility] Chloride, Plasma 107 97 - 107 mmol/L 05/23/2024 8:14 PM EDT [facility] CO2, Plasma 20(L) 22 - 29 mmol/L 05/23/2024 8:14 PM EDT [facility] Anion Gap 10 6 - 16 mmol/L 05/23/2024 8:14 PM EDT [facility] Total Calcium, Plasma 7.5(L) 8.9 - 10.2 mg/dL 05/23/2024 8:14 PM EDT [facility] Total Protein 5.4(L) 6.3 - 7.9 g/dL 05/23/2024 8:14 PM EDT [facility] Albumin, Plasma 1.7(L) 3.5 - 5.2 g/dL 05/23/2024 8:14 PM EDT [facility] AST, Plasma 26 10 - 35 U/L 05/23/2024 8:14 PM EDT [facility] ALT, Plasma 14 10 - 35 U/L 05/23/2024 8:14 PM EDT [facility] Alkaline Phosphatase, Plasma 97 35 - 104 U/L 05/23/2024 8:14 PM EDT [facility] Total Bilirubin, Plasma 0.9 0.2 - 1.1 mg/dL 05/23/2024 8:14 PM EDT [facility] eGFRcr 62.6 mL/min/1.7 3m*2 05/23/2024 8:14 PM EDT [facility] Comment:Reported eGFRcr in m L/min/1.73m2 is based the CKD-EPI 2020 equation that does not use a race coefficient. Blood Venous blood specimen / Unknown Venipuncture / Unknown 05/23/2024 7:39 PM EDT 05/23/2024 7:45 PM EDT us Reyna Abreu Sabas [employer] LAB BLOOD ORDERABLES Namrata clarita Result [facility] [address] [place] [address] * (ABNORMAL) CBC and Differential (05/23/2024 7:39 PM EDT) WBC Count 32.33(H) 3.70 - 10.30 10*3/uL LAB HEMATOLOGY METHOD 05/23/2024 8:47 PM EDT [facility] RBC Count 3.73(L) 3.90 - 5.20 10*6/uL LAB HEMATOLOGY METHOD 05/23/2024 8:47 PM EDT [facility] HGB 11.1(L) 11.2 - 15.7 g/dL LAB HEMATOLOGY METHOD 05/23/2024 8:47 PM EDT [facility] HCT 34.2 34.0 - 45.0 % LAB HEMATOLOGY METHOD 05/23/2024 8:47 PM EDT [facility] Platelet Count 497(H) 155 - 369 10*3/uL LAB HEMATOLOGY METHOD 05/23/2024 8:47 PM EDT [facility] MCV 92 79 - 98 fL LAB HEMATOLOGY METHOD 05/23/2024 8:47 PM EDT [facility] MCH 29.8 26.0 - 32.0 pg LAB HEMATOLOGY METHOD 05/23/2024 8:47 PM EDT [facility] MCHC 32.5 30.7 - 35.5 g/dL LAB HEMATOLOGY METHOD 05/23/2024 8:47 PM EDT [facility] RDW 14.8(H) 11.5 - 14.5 % LAB HEMATOLOGY METHOD 05/23/2024 8:47 PM EDT [facility] MPV 10.1 8.8 - 12.5 fL LAB HEMATOLOGY METHOD 05/23/2024 8:47 PM EDT [facility] nRBC 0.5(H) <=0.0 per 100 WBCs LAB HEMATOLOGY METHOD 05/23/2024 8:47 PM EDT [facility] Differential Type Manual LAB HEMATOLOGY METHOD 05/23/2024 8:47 PM EDT [facility] Blood Venous blood specimen / Unknown Venipuncture / Unknown 05/23/2024 7:39 PM EDT 05/23/2024 7:45 PM EDT Narrative [facility] - 05/23/2024 8:47 PM EDT Therapeutic decision making should be based on absolute values, rather than percentages. The previously reported component Neutrophils % is no longer being reported.The previously reported component Lymphocytes % is no longer being reported.The previously reported component Monocytes % is no longer being reported.The previously reported component Eosinophils % is no longer being reported.The previously reported component Basophils % is no longer being reported.The previously reported component Immature Granulocytes % is no longer being reported.The previously reported component Absolute Neutrophils is no longer being reported.The previously reported component Absolute Lymphocytes is no longer being reported.The previously reported component Absolute Monocytes is no longer being reported.The previously reported component Absolute Eosinophils is no longer being reported.The previously reported component Absolute Basophils is no longer being reported.The previously reported component Absolute Immature Granulocytes is no longer being reported. Reyna Obregon [employer] LAB BLOOD ORDERABLES Namrata l Result [facility] [address] [place] [address] * Transfuse RBC (05/23/2024 4:18 PM EDT) Mayda Bhatti [employer] BLOOD TRANSFUSION ORDERABL ES Edited Result - Final * Transfuse RBC: 1 Units (05/23/2024 4:18 PM EDT) Mayda Bhatti [employer] BLOOD TRANSFUSION ORDERABL ES Edited Result - Final * Surgical Pathology Exam (05/23/2024 4:09 PM EDT) Case Report Surgical Pathology Case: [id number] Authorizing Provider: Lidia Troncoso MD Collected: 05/23/2024 1609 Ordering Location: [facility] Received: 05/24/2024 0749 Pathologist: Elvia Morgan MD Specimen: Other (specify site), Left Colon (fresh for permanent) 05/28/2024 11:11 AM EDT [facility] Final Diagnosis LARGE INTESTINE. 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 - INVOLVEMENT OF ONE RESECTION MARGIN. 05/28/2024 11:11 AM T [facility] at 1111 EDT Clinical Information Colon perforation (CMS/HCC) [K63.1] s/p 4vCABG on 05/06/24. 05/28/2024 11:[address] [facility] Gross Description A. LEFT COLON (FRESH FOR PERMANENT) The specimens received fresh, placed in formalin labeled [facility] colon and consists of a 33 cm (length) by 3.8 cm (diameter) segment of colon. The external surface is guzman-brown to guzman-red, slightly hemorrhagic, fibrotic with attached fibroadipose tissue. There is a notable serosal defect measuring 1.1 x 0.8 cm. The defect is 10.1 cm from one margin, 21 cm from opposite margin, 5.6 cm from mesenteric margin. The serosal overlying the disruption is inked blue. Opening the colon reveals guzman-brown, to guzman-green, ragged mucosal surface with extended exudate underlying the defect. Additionally, the guzman-brown ragged mucosa extends 18 cm in total length with prominent mucosal fibrosis, with underlying bowel wall thickening up to 0.6 cm with loss of intestinal folds in the affected areas. Gross areas of stricturing are identified 4.5 cm from one end, 15 cm from opposite end. The uninvolved mucosa is guzman-pink, with appropriate intestinal folds, no other masses or lesions are identified. An additional 10.1 x 7.8 cm unremarkable mesentery is submitted. [employer] sections are submitted as follows: A1: Resection margin A2: Opposite resection margin A3-A4: Area of defect, full-thickness A5: Area of fibrosis and stricturing A6: Area of fibrosis and stricturing A7: Area of fibrosis and stricturing A8: Uninvolved colonic mucosa A9: Junction between involved in uninvolved mucosa A10: Two lymph node candidates, entirely submitted Cold Time: 2h 41m 05/28/2024 11:[address] [facility] Note: A resident was involved in the service. I attest I examined the relevant preparations for the specimens and confirmed the diagnosis or interpretation. 05/28/2024 11:[address] [facility] Tissue Topography unknown / Unknown 05/23/2024 4:09 PM EDT 05/24/2024 7:49 AM EDT Comment:Pre-op diagnosis: Colon perforation (CMS/HCC) [K63.1] us Lidia Troncoso MD LAB PATHOLOGY ORDERABLES Final Result [facility] [address] [place] [address] * (ABNORMAL) Blood gas, arterial (05/23/2024 2:14 PM EDT) pH, Arterial 7.44 7.35 - 7.45 LAB HEMATOLOGY METHOD 05/23/2024 2:35 PM EDT [facility] pCO2, Arterial 39 35 - 48 mmHg LAB HEMATOLOGY METHOD 05/23/2024 2:35 PM EDT [facility] pO2, Arterial 248(H) 83 - 108 mmHg LAB HEMATOLOGY METHOD 05/23/2024 2:35 PM EDT [facility] SO2, Measured, Arterial 99(H) 94 - 98 % LAB HEMATOLOGY METHOD 05/23/2024 2:35 PM EDT [facility] Base Excess, Arterial 1.8 -2.0 - 3.0 mmol/L LAB HEMATOLOGY METHOD 05/23/2024 2:35 PM EDT [facility] Bicarbonate, Calculated, Arterial 26 22 - 26 mmol/L LAB HEMATOLOGY METHOD 05/23/2024 2:35 PM EDT [facility] Hematocrit, Whole Blood 26.3(L) 34.0 - 45.0 % LAB HEMATOLOGY METHOD 05/23/2024 2:35 PM EDT [facility] Sodium, Whole Blood 137 136 - 145 mmol/L LAB HEMATOLOGY METHOD 05/23/2024 2:35 PM EDT [facility] Potassium, Whole Blood 3.9 3.6 - 4.9 mmol/L LAB HEMATOLOGY METHOD 05/23/2024 2:35 PM EDT [facility] Chloride, Whole Blood 104 97 - 107 mmol/L LAB HEMATOLOGY METHOD 05/23/2024 2:35 PM EDT [facility] Glucose, Whole Blood 134(H) 74 - 99 mg/dL LAB HEMATOLOGY METHOD 05/23/2024 2:35 PM EDT [facility] Ionized Calcium, Whole Blood 4.4(L) 4.6 - 5.1 mg/dL LAB HEMATOLOGY METHOD 05/23/2024 2:35 PM EDT [facility] Lactate, Arterial, Whole Blood 1.2 0.5 - 1.6 mmol/L LAB HEMATOLOGY METHOD 05/23/2024 2:35 PM EDT [facility] Blood Arterial blood specimen / Unknown Arterial Puncture / Unknown 05/23/2024 2:14 PM EDT 05/23/2024 2:34 PM EDT Mayda M Davy SY LAB BLOOD ORDERABLES Final Result Performing Organization Address City/[facility]/ZIP Co de Phone Number [facility] [address] [place] [address] * Prepare Leukocyte Reduced RBC: 2 Units (05/23/2024 2:04 PM EDT) Product Code [id number] BLOO D BANK Dispense Status Transfused BLOOD BANK Blood Expiration Date [id number] BLOOD BANK Unit Number [id number] CH B LOOD BANK Product Blood Type 7300 BLOOD BANK Blood Type B+ BLOOD BANK Crossmatch Compatible BLOOD BANK Product Code [id number] BLOO D BANK Dispense Status Returned BLOOD BANK Blood Expiration Date [id number] BLOOD BANK Unit Number [id number] CH B LOOD BANK Product Blood Type 7300 BLOOD BANK Blood Type B+ BLOOD BANK Crossmatch Compatible BLOOD BANK Other Mayda Chelle Davy BOTT[employer] WHEELER BLOOD BANK PRODUCT ORDERAB LES Final Result Performing Organization Address City/[facility] Co de Phone Number BLOOD BANK [address] * (ABNORMAL) Renal Function Panel, Plasma (05/23/2024 1:00 PM EDT) Glucose, Plasma 136(H) 74 - 99 mg/dL 05/23/2024 2:16 PM EDT [facility] BUN, Plasma 13 7 - 21 mg/dL 05/23/2024 2:16 PM EDT [facility] Creatinine, Plasma 0.68 0.60 - 1.10 mg/dL 05/23/2024 2:16 PM EDT [facility] BUN/Creatinine Ratio 19 05/23/2024 2:16 PM EDT [facility] Sodium, Plasma 137 136 - 145 mmol/L 05/23/2024 2:16 PM EDT [facility] Potassium, Plasma 4.2 3.6 - 4.9 mmol/L 05/23/2024 2:16 PM EDT [facility] Chloride, Plasma 104 97 - 107 mmol/L 05/23/2024 2:16 PM EDT [facility] CO2, Plasma 25 22 - 29 mmol/L 05/23/2024 2:16 PM EDT [facility] Anion Gap 8 6 - 16 mmol/L 05/23/2024 2:16 PM EDT [facility] Total Calcium, Plasma 7.7(L) 8.9 - 10.2 mg/dL 05/23/2024 2:16 PM EDT [facility] Phosphorus, Plasma 4.1 2.5 - 4.5 mg/dL 05/23/2024 2:16 PM EDT [facility] Albumin, Plasma 2.1(L) 3.5 - 5.2 g/dL 05/23/2024 2:16 PM EDT [facility] eGFRcr 103.6 mL/min/1.7 3m*2 05/23/2024 2:16 PM EDT [facility] Comment:Reported eGFRcr in m L/min/1.73m2 is based the CKD-EPI 2020 equation that does not use a race coefficient. Blood Venous blood specimen / Unknown Venipuncture / Unknown 05/23/2024 1:00 PM EDT 05/23/2024 1:04 PM EDT us Reyna Obregon [employer] LAB BLOOD ORDERABLES Namrata l Result [facility] [address] [place] [address] * Magnesium (05/23/2024 1:00 PM EDT) Magnesium, Plasma 2.1 1.9 - 2.4 mg/dL 05/23/2024 2:16 PM EDT [facility] Blood Venous blood specimen / Unknown Venipuncture / Unknown 05/23/2024 1:00 PM EDT 05/23/2024 1:04 PM EDT us Reyna Obregon APRN LAB BLOOD ORDERABLES Namrata l Result [facility] [address] [place] [address] * Protime-INR (05/23/2024 12:41 PM EDT) Prothrombin Time 13.6 12.0 - 14.3 sec LAB COAGULATION METHOD 05/23/2024 1:34 PM EDT [facility] INR 1.0 0.9 - 1.1 LAB COAGULATION METHOD 05/23/2024 1:34 PM EDT [facility] Blood Venous blood specimen / Unknown Venipuncture / Unknown 05/23/2024 12:41 PM EDT 05/23/2024 1:04 PM EDT Narrative [facility] - 05/23/2024 1:34 PM EDT OPTIMAL INR RANGES FOR PATIENT ON ORAL ANTICOAGULANT THERAPY Prevention of venous thromboembolism INR 2.0 to 3.0 In patients with heart disease: Atrial fibrillation INR 2.0 to 3.0 Valvular heart disease INR 2.0 to 3.0 Tissue heart valves INR 2.0 to 3.0 Mechanical prosthetic valves INR 2.5 to 3.5 Prevention of recurrent MS INR 2.5 to 3.5 us Maite Austin MD LAB BLOOD ORDERABLES Final Resu lt [facility] [address] [place] [address] * (ABNORMAL) Ionized calcium, whole blood (05/23/2024 11:40 AM EDT) Ionized Calcium, Whole Blood 4.3(L) 4.6 - 5.1 mg/dL LAB HEMATOLOGY METHOD 05/23/2024 11:48 AM EDT [facility] Blood Venous blood specimen / Unknown Venipuncture / Unknown 05/23/2024 11:40 AM EDT 05/23/2024 11:47 AM EDT us Reyna Obregon [employer] LAB BLOOD ORDERABLES Namrata l Result Performing Organization Address City/[facility]/ZIP Co de Phone Number [facility] [address] [place] [address] * Blood Culture (Aerobic/Anaerobet Set) (05/23/2024 10:20 AM EDT) Culture No growth at day 5 ELI 05/28/2024 11:01 AM EDT [facility] Blood Venous blood specimen / Unknown Venipuncture / Unknown 05/23/2024 10:20 AM EDT 05/23/2024 10:28 AM EDT us Maite Austin MD LAB MICROBIOLOGY - GENERAL [facility] Final Result Performing Organization Address [facility] Co de Phone Number [facility] [address] [place] [address] * (ABNORMAL) Hemoglobin and hematocrit, blood (05/23/2024 6:20 AM EDT) HGB 9.0(L) 11.2 - 15.7 g/dL LAB HEMATOLOGY METHOD 05/23/2024 6:38 AM EDT [facility] HCT 28.7(L) 34.0 - 45.0 % LAB HEMATOLOGY METHOD 05/23/2024 6:38 AM EDT [facility] Blood Venous blood specimen / Unknown Venipuncture / Unknown 05/23/2024 6:20 AM EDT 05/23/2024 6:31 AM EDT us Maite Austin MD LAB BLOOD ORDERABLES Final Resu lt Performing Organization Address City/[facility]/ZIP Co de Phone Number [facility] [address] [place] [address] * (ABNORMAL) Hemoglobin and Hematocrit, Blood (05/23/2024 5:40 AM EDT) HGB 6.7(L) 11.2 - 15.7 g/dL LAB HEMATOLOGY METHOD 05/23/2024 6:02 AM EDT [facility] HCT 21.8(L) 34.0 - 45.0 % LAB HEMATOLOGY METHOD 05/23/2024 6:02 AM EDT [facility] Blood Venous blood specimen / Unknown Venipuncture / Unknown 05/23/2024 5:40 AM EDT 05/23/2024 5:52 AM EDT us Maite Austin MD LAB BLOOD ORDERABLES Final Resu lt [facility] [address] [place] [address] * (ABNORMAL) Renal Function Panel, Plasma (05/23/2024 5:40 AM EDT) Pathologist [facility] Glucose, Plasma 117(H) 74 - 99 mg/dL 05/23/2024 6:22 AM EDT [facility] BUN, Plasma 12 7 - 21 mg/dL 05/23/2024 6:22 AM EDT [facility] Creatinine, Plasma 0.69 0.60 - 1.10 mg/dL 05/23/2024 6:22 AM EDT [facility] BUN/Creatinine Ratio 17 05/23/2024 6:22 AM EDT [facility] Sodium, Plasma 136 136 - 145 mmol/L 05/23/2024 6:22 AM EDT [facility] Potassium, Plasma 4.2 3.6 - 4.9 mmol/L 05/23/2024 6:22 AM EDT [facility] Chloride, Plasma 104 97 - 107 mmol/L 05/23/2024 6:22 AM EDT [facility] CO2, Plasma 24 22 - 29 mmol/L 05/23/2024 6:22 AM EDT [facility] Anion Gap 8 6 - 16 mmol/L 05/23/2024 6:22 AM EDT [facility] Total Calcium, Plasma 7.7(L) 8.9 - 10.2 mg/dL 05/23/2024 6:22 AM EDT [facility] Phosphorus, Plasma 3.9 2.5 - 4.5 mg/dL 05/23/2024 6:22 AM EDT [facility] Albumin, Plasma 1.8(L) 3.5 - 5.2 g/dL 05/23/2024 6:22 AM EDT [facility] eGFRcr 103.3 mL/min/1.7 3m*2 05/23/2024 6:22 AM EDT [facility] Comment:Reported eGFRcr in m L/min/1.73m2 is based the CKD-EPI 2020 equation that does not use a race coefficient. Blood Venous blood specimen / Unknown Venipuncture / Unknown 05/23/2024 5:40 AM EDT 05/23/2024 5:52 AM EDT Reyna A Sabas [employer] LAB BLOOD ORDERABLES Namrata l Result [facility] [address] [place] [address] * Magnesium (05/23/2024 5:40 AM EDT) Magnesium, Plasma 2.0 1.9 - 2.4 mg/dL 05/23/2024 6:22 AM EDT [facility] Blood Venous blood specimen / Unknown Venipuncture / Unknown 05/23/2024 5:40 AM EDT 05/23/2024 5:52 AM EDT Reyna A Sabas [employer] LAB BLOOD ORDERABLES Namrata l Result [facility] [address] [place] [address] * (ABNORMAL) Ionized calcium, whole blood (05/23/2024 5:40 AM EDT) Ionized Calcium, Whole Blood 4.3(L) 4.6 - 5.1 mg/dL LAB HEMATOLOGY METHOD 05/23/2024 5:55 AM EDT [facility] Blood Venous blood specimen / Unknown Venipuncture / Unknown 05/23/2024 5:40 AM EDT 05/23/2024 5:52 AM EDT Reyna Obregon APRN LAB BLOOD ORDERABLES Namrata otto Result [facility] [address] [place] [address] * XR Chest 1 View (05/23/2024 2:32 AM EDT) Anatomical Region Laterality Modality Chest Digital Radiogra phy Impressions 05/23/2024 9:01 AM EDT Stable exam. CRITICAL RESULT: No. COMMUNICATION: Per this written report. By electronically signing this report, I, the attending physician, attest that I have personally reviewed the images/data for the above examination(s) and agree with the final edited report. Drafted by GER Mckee on 05/23/2024 8:31 AM Final report signed by Champ Oden MD on 05/23/2024 9:01 AM Narrative 05/23/2024 9:01 AM EDT CLINICAL INDICATION: post op cardiac surgery monitoring TECHNIQUE: XR CHEST 1 VIEW COMPARISON: May 22, 2024 FINDINGS: Stable support hardware. Cardiac silhouette and mediastinal contours are stable. Small stable left pleural effusion. No new pulmonary opacities. No pneumothorax. Procedure Note Champ Oden MD - 05/23/2024 CLINICAL INDICATION: post op cardiac surgery monitoring TECHNIQUE: XR CHEST 1 VIEW COMPARISON: May 22, 2024 FINDINGS: Stable support hardware. Cardiac silhouette and mediastinal contours arestable. Small stable left pleural effusion. No new pulmonary opacities. Nopneumothorax. IMPRESSION: Stable exam. CRITICAL RESULT: No. COMMUNICATION: Per this written report. By electronically signing this report, I, the attending physician, attestthat I have personally reviewed the images/data for the aboveexamination(s) and agree with the final edited report. Drafted by GER Mckee on 05/23/2024 8:31 AM Final report signed by Champ Oden MD on 05/23/2024 9:01 AM us Maite Austin MD IMG XR PROCEDURES Final Result * CT Abdomen Pelvis w IV Contrast (05/23/2024 1:56 AM EDT) Anatomical Region Laterality Modality Abdomen, Pelvis Computed Tomogra phy Impressions 05/23/2024 9:53 AM EDT New hyperdense fluid within the left upper quadrant gas and fluid collection is compatible with active enteric leak, favored to arise from the colon at the splenic flexure. CRITICAL RESULT: No. COMMUNICATION: Per this written report. Preliminary report signed by Katherin Camacho MD on 05/23/2024 9:14 AM By electronically signing this report, I, the attending physician, attest that I have personally reviewed the images/data for the above examination(s) and agree with the final edited report. Drafted by Katherin Camacho MD on 05/23/2024 8:26 AM Final report signed by Cass Stoll DO on 05/23/2024 9:53 AM Narrative 05/23/2024 9:53 AM EDT CLINICAL INDICATION: Bowel obstruction suspected TECHNIQUE: Multiple axial CT images were obtained from lung bases through pubic symphysis following administration of IV contrast, Omnipaque 300, 100 mL. Reformatted images in the coronal and sagittal planes were generated from the axial data set to facilitate diagnostic accuracy. Total DLP (Dose-Length Product): 406.17 mGy.cm. Please note: The reported value represents the total of one or more individual components during the CT acquisition on this date and at this time, and as such, the same value may appear in more than one CT report depending on the interpreting/reporting physicians. COMPARISON: 05/22/2024: CT abdomen/pelvis without contrast performed 8 hours prior FINDINGS: Lower Chest: Trace right and moderate left pleural effusions. Unchanged groundglass opacities in bilateral lung bases. Postsurgical changes from recent median sternotomy with a small amount of fluid with mild wall enhancement deep to the sternotomy incision. Solid Abdominal Organs: Homogeneous liver enhancement without focal lesion. Prior cholecystectomy. No significant biliary ductal dilatation. Normal size spleen with lateral splenule. Homogeneous pancreatic enhancement without significant inflammatory change. No pancreatic ductal dilatation. Normal adrenal glands. Symmetric renal enhancement without suspicious parenchymal lesion. No hydronephrosis. GI Tract/Mesentery/Peritoneum: New hyperdensity within the left upper quadrant gas and fluid collection measuring 4.1 x 2.2 cm (series 3, image 80), indicating active leak. On retrospective review of 05/18/2024 CT (coronal series 4 image 66), there appears to be a tiny pinhole communication between the splenic flexure colon and the left upper quadrant gas/fluid collection. Smaller adjacent loculated fluid collections are unchanged, including the collection along the superior pancreatic body measuring 3.5 x 0.9 cm (series 3, image 84) and the collection abutting the greater curvature of the mid stomach which measures 1.0 x 2.0 cm in coronal plane (series 4, image 59). Dense oral contrast is seen to the level of the mid/distal transverse colon with more subtle enteric contrast seen throughout the rest of the colon through the rectum. Nasogastric tube terminates in the mid/distal stomach. No pneumatosis or pneumoperitoneum. Nonobstructed GI tract. No pneumatosis or pneumoperitoneum. Mild nonspecific wall thickening of the terminal ileum in the right lower quadrant. Persistent mild colonic inflammation of the distal transverse and descending colon, supportive of colonic origin for the left upper quadrant/fluid collection. Additional mild wall thickening and inflammation of the rectum and sigmoid colon is similar to prior. Pelvic Viscera: Decompressed urinary bladder with De Los Santos catheter. Prior hysterectomy. No suspicious pelvic findings. Lymph Nodes/Vasculature: Unchanged prominent upper abdominal lymph nodes, presumably reactive. Stable conspicuous 8 mm hepatogastric node and 11 mm portacaval node (series 3, images 73 and 93). Patent aortoiliac vasculature with infrarenal aortic ectasia. Moderate atherosclerotic disease. Patent IVC and portal vein. Free Fluid: Trace residual pelvic free fluid, unchanged from prior. Musculoskeletal and Body Wall: Stable left groin hematoma. Lower abdominal wall injection granulomas. No acute or aggressive osseous findings. Procedure Note Cass Stoll, DO - 05/23/2024 CLINICAL INDICATION: Bowel obstruction suspected TECHNIQUE: Multiple axial CT images were obtained from lung bases through pubicsymphysis following administration of IV contrast, Omnipaque 300, 100 mL.Reformatted images in the coronal and sagittal planes were generated fromthe axial data set to facilitate diagnostic accuracy. Total DLP (Dose-Length Product): 406.17 mGy.cm. Please note: The reportedvalue represents the total of one or more individual components during theCT acquisition on this date and at this time, and as such, the same valuemay appear in more than one CT report depending on theinterpreting/reporting physicians. COMPARISON: 05/22/2024: CT abdomen/pelvis without contrast performed 8 hours prior FINDINGS: Lower Chest: Trace right and moderate left pleural effusions. Unchangedgroundglass opacities in bilateral lung bases. Postsurgical changes fromrecent median sternotomy with a small amount of fluid with mild wallenhancement deep to the sternotomy incision. Solid Abdominal Organs: Homogeneous liver enhancement without focallesion. Prior cholecystectomy. No significant biliary ductal dilatation.Normal size spleen with lateral splenule. Homogeneous pancreaticenhancement without significant inflammatory change. No pancreatic ductaldilatation. Normal adrenal glands. Symmetric renal enhancement withoutsuspicious parenchymal lesion. No hydronephrosis. GI Tract/Mesentery/Peritoneum: New hyperdensity within the left upperquadrant gas and fluid collection measuring 4.1 x 2.2 cm (series 3, image80), indicating active leak. On retrospective review of 05/18/2024 CT(coronal series 4 image 66), there appears to be a tiny pinholecommunication between the splenic flexure colon and the left upperquadrant gas/fluid collection. Smaller adjacent loculated fluidcollections are unchanged, including the collection along the superiorpancreatic body measuring 3.5 x 0.9 cm (series 3, image 84) and thecollection abutting the greater curvature of the mid stomach whichmeasures 1.0 x 2.0 cm in coronal plane (series 4, image 59). Dense oral contrast is seen to the level of the mid/distal transversecolon with more subtle enteric contrast seen throughout the rest of thecolon through the rectum. Nasogastric tube terminates in the mid/distalstomach. No pneumatosis or pneumoperitoneum. Nonobstructed GI tract. Nopneumatosis or pneumoperitoneum. Mild nonspecific wall thickening of theterminal ileum in the right lower quadrant. Persistent mild colonicinflammation of the distal transverse and descending colon, supportive ofcolonic origin for the left upper quadrant/fluid collection. Additionalmild wall thickening and inflammation of the rectum and sigmoid colon issimilar to prior. Pelvic Viscera: Decompressed urinary bladder with De Los Santos catheter. Priorhysterectomy. No suspicious pelvic findings. Lymph Nodes/Vasculature: Unchanged prominent upper abdominal lymph nodes,presumably reactive. Stable conspicuous 8 mm hepatogastric node and 11 mmportacaval node (series 3, images 73 and 93). Patent aortoiliacvasculature with infrarenal aortic ectasia. Moderate atheroscleroticdisease. Patent IVC and portal vein. Free Fluid: Trace residual pelvic free fluid, unchanged from prior. Musculoskeletal and Body Wall: Stable left groin hematoma. Lower abdominalwall injection granulomas. No acute or aggressive osseous findings. IMPRESSION: New hyperdense fluid within the left upper quadrant gas and fluidcollection is compatible with active enteric leak, favored to arise fromthe colon at the splenic flexure. CRITICAL RESULT: No. COMMUNICATION: Per this written report. Preliminary report signed by Katherin Camacho MD on 05/23/2024 9:14 AM By electronically signing this report, I, the attending physician, attestthat I have personally reviewed the images/data for the aboveexamination(s) and agree with the final edited report. Drafted by Katherin Camacho MD on 05/23/2024 8:26 AM Final report signed by Cass Stoll DO on 05/23/2024 9:53 AM Reyna Obregon [employer] IMG CT PROCEDURES Final R esult * (ABNORMAL) Morphology (05/23/2024 1:15 AM EDT) RBC Fragments/Schist ocytes Slight(A) (none) LAB HEMATOLOGY METHOD 05/23/2024 2:53 AM EDT [facility] Polychromasia Moderate LAB HEMATOLOGY METHOD 05/23/2024 2:53 AM EDT [facility] RBC Morphology Slide Reviewed LAB HEMATOLOGY METHOD 05/23/2024 2:53 AM EDT [facility] Platelet Estimate Platelet smear estimate consistent with automated count LAB HEMATOLOGY METHOD 05/23/2024 2:53 AM EDT [facility] Clumped Platelets Present LAB HEMATOLOGY METHOD 05/23/2024 2:53 AM EDT [facility] Blood Venous blood specimen / Unknown Venipuncture / Unknown 05/23/2024 1:15 AM EDT 05/23/2024 1:23 AM EDT us Reyna Andradeshobha NICHOLSONN LAB BLOOD ORDERABLES Namrata otto Result [facility] [address] [place] [address] * (ABNORMAL) Manual Differential (05/23/2024 1:15 AM EDT) Blasts % 0 % LAB HEMATOLOGY METHOD 05/23/2024 2:53 AM EDT [facility] Promyelocytes % 0 % LAB HEMATOLOGY METHOD 05/23/2024 2:53 AM EDT [facility] Myelocytes % 4 % LAB HEMATOLOGY METHOD 05/23/2024 2:53 AM EDT [facility] Metamyelocytes % 3 % LAB HEMATOLOGY METHOD 05/23/2024 2:53 AM EDT [facility] Neutrophils % 56 % LAB HEMATOLOGY METHOD 05/23/2024 2:53 AM EDT [facility] Lymphocytes % 26 % LAB HEMATOLOGY METHOD 05/23/2024 2:53 AM EDT [facility] Reactive Lymphocytes % 0 % LAB HEMATOLOGY METHOD 05/23/2024 2:53 AM EDT [facility] Monocytes % 7 % LAB HEMATOLOGY METHOD 05/23/2024 2:53 AM EDT [facility] Eosinophils % 3 % LAB HEMATOLOGY METHOD 05/23/2024 2:53 AM EDT [facility] Basophils % 1 % LAB HEMATOLOGY METHOD 05/23/2024 2:53 AM EDT [facility] Blasts Absolute 0.00 10*3/UL LAB HEMATOLOGY METHOD 05/23/2024 2:53 AM EDT [facility] Promyelocytes Absolute 0.00 10*3/uL LAB HEMATOLOGY METHOD 05/23/2024 2:53 AM EDT [facility] Myelocytes Absolute 0.77 10*3/uL LAB HEMATOLOGY METHOD 05/23/2024 2:53 AM EDT [facility] Metamyelocytes Absolute 0.57 10*3/uL LAB HEMATOLOGY METHOD 05/23/2024 2:53 AM EDT [facility] Neutrophils Absolute 10.72(H) 1.60 - 6.10 10*3/uL LAB HEMATOLOGY METHOD 05/23/2024 2:53 AM EDT [facility] Lymphocytes Absolute 4.98(H) 1.20 - 3.90 10*3/uL LAB HEMATOLOGY METHOD 05/23/2024 2:53 AM EDT [facility] Reactive Lymphocytes Absolute 0.00 10*3/uL LAB HEMATOLOGY METHOD 05/23/2024 2:53 AM EDT [facility] Monocytes Absolute 1.34(H) 0.30 - 0.90 10*3/uL LAB HEMATOLOGY METHOD 05/23/2024 2:53 AM EDT [facility] Eosinophils Absolute 0.57(H) 0.00 - 0.50 10*3/uL LAB HEMATOLOGY METHOD 05/23/2024 2:53 AM EDT [facility] Basophils Absolute 0.19(H) 0.00 - 0.10 10*3/uL LAB HEMATOLOGY METHOD 05/23/2024 2:53 AM EDT [facility] Blood Venous blood specimen / Unknown Venipuncture / Unknown 05/23/2024 1:15 AM EDT 05/23/2024 1:23 AM EDT us Reyna Obregon [employer] LAB BLOOD ORDERABLES Namrata otto Result [facility] [address] [place] [address] * (ABNORMAL) Renal Function Panel, Plasma (05/23/2024 1:15 AM EDT) Glucose, Plasma 110(H) 74 - 99 mg/dL 05/23/2024 1:51 AM EDT [facility] BUN, Plasma 13 7 - 21 mg/dL 05/23/2024 1:51 AM EDT [facility] Creatinine, Plasma 0.67 0.60 - 1.10 mg/dL 05/23/2024 1:51 AM EDT [facility] BUN/Creatinine Ratio 19 05/23/2024 1:51 AM EDT [facility] Sodium, Plasma 136 136 - 145 mmol/L 05/23/2024 1:51 AM EDT [facility] Potassium, Plasma 4.0 3.6 - 4.9 mmol/L 05/23/2024 1:51 AM EDT [facility] Chloride, Plasma 103 97 - 107 mmol/L 05/23/2024 1:51 AM EDT [facility] CO2, Plasma 25 22 - 29 mmol/L 05/23/2024 1:51 AM EDT [facility] Anion Gap 8 6 - 16 mmol/L 05/23/2024 1:51 AM EDT [facility] Total Calcium, Plasma 7.9(L) 8.9 - 10.2 mg/dL 05/23/2024 1:51 AM EDT [facility] Phosphorus, Plasma 3.4 2.5 - 4.5 mg/dL 05/23/2024 1:51 AM EDT [facility] Albumin, Plasma 2.1(L) 3.5 - 5.2 g/dL 05/23/2024 1:51 AM EDT [facility] eGFRcr 104.0 mL/min/1.7 3m*2 05/23/2024 1:51 AM EDT [facility] Comment:Reported eGFRcr in m L/min/1.73m2 is based the CKD-EPI 2020 equation that does not use a race coefficient. Blood Venous blood specimen / Unknown Venipuncture / Unknown 05/23/2024 1:15 AM EDT 05/23/2024 1:24 AM EDT Reyna Obregon [employer] LAB BLOOD ORDERABLES Namrata l Result [facility] [address] [place] [address] * Magnesium (05/23/2024 1:15 AM EDT) Magnesium, Plasma 1.9 1.9 - 2.4 mg/dL 05/23/2024 1:51 AM EDT [facility] Blood Venous blood specimen / Unknown Venipuncture / Unknown 05/23/2024 1:15 AM EDT 05/23/2024 1:24 AM EDT us Reyna A Sabas [employer] LAB BLOOD ORDERABLES Namrata l Result Performing Organization Address City/[facility]/ZIP Co de Phone Number [facility] [address] [place] [address] * (ABNORMAL) Ionized calcium, whole blood (05/23/2024 1:15 AM EDT) Ionized Calcium, Whole Blood 4.2(L) 4.6 - 5.1 mg/dL LAB HEMATOLOGY METHOD 05/23/2024 1:43 AM EDT [facility] Blood Venous blood specimen / Unknown Venipuncture / Unknown 05/23/2024 1:15 AM EDT 05/23/2024 1:38 AM EDT Reyna Obregon [employer] LAB BLOOD ORDERABLES Namrata l Result Performing Organization Address [facility]/ZIP Co de Phone Number [facility] [address] [place] [address] * (ABNORMAL) Comprehensive metabolic panel (05/23/2024 1:15 AM EDT) Glucose, Plasma 110(H) 74 - 99 mg/dL 05/23/2024 1:51 AM EDT [facility] BUN, Plasma 13 7 - 21 mg/dL 05/23/2024 1:51 AM EDT [facility] Creatinine, Plasma 0.67 0.60 - 1.10 mg/dL 05/23/2024 1:51 AM EDT [facility] BUN/Creatinine Ratio 19 05/23/2024 1:51 AM EDT [facility] Sodium, Plasma 136 136 - 145 mmol/L 05/23/2024 1:51 AM EDT [facility] Potassium, Plasma 4.0 3.6 - 4.9 mmol/L 05/23/2024 1:51 AM EDT [facility] Chloride, Plasma 103 97 - 107 mmol/L 05/23/2024 1:51 AM EDT [facility] CO2, Plasma 25 22 - 29 mmol/L 05/23/2024 1:51 AM EDT [facility] Anion Gap 8 6 - 16 mmol/L 05/23/2024 1:51 AM EDT [facility] Total Calcium, Plasma 7.9(L) 8.9 - 10.2 mg/dL 05/23/2024 1:51 AM EDT [facility] Total Protein 6.4 6.3 - 7.9 g/dL 05/23/2024 1:51 AM EDT [facility] Albumin, Plasma 2.1(L) 3.5 - 5.2 g/dL 05/23/2024 1:51 AM EDT [facility] AST, Plasma 29 10 - 35 U/L 05/23/2024 1:51 AM EDT [facility] ALT, Plasma 14 10 - 35 U/L 05/23/2024 1:51 AM EDT [facility] Alkaline Phosphatase, Plasma 121(H) 35 - 104 U/L 05/23/2024 1:51 AM EDT [facility] Total Bilirubin, Plasma 0.6 0.2 - 1.1 mg/dL 05/23/2024 1:51 AM EDT [facility] eGFRcr 104.0 mL/min/1.7 3m*2 05/23/2024 1:51 AM EDT [facility] Comment:Reported eGFRcr in m L/min/1.73m2 is based the CKD-EPI 2020 equation that does not use a race coefficient. Blood Venous blood specimen / Unknown Venipuncture / Unknown 05/23/2024 1:15 AM EDT 05/23/2024 1:24 AM EDT us Reyna Obregon [employer] LAB BLOOD ORDERABLES Namrata l Result [facility] [address] [place] [address] * (ABNORMAL) CBC and Differential (05/23/2024 1:15 AM EDT) WBC Count 19.15(H) 3.70 - 10.30 10*3/uL LAB HEMATOLOGY METHOD 05/23/2024 2:54 AM EDT [facility] RBC Count 3.31(L) 3.90 - 5.20 10*6/uL LAB HEMATOLOGY METHOD 05/23/2024 2:54 AM EDT [facility] HGB 9.5(L) 11.2 - 15.7 g/dL LAB HEMATOLOGY METHOD 05/23/2024 2:54 AM EDT [facility] HCT 30.4(L) 34.0 - 45.0 % LAB HEMATOLOGY METHOD 05/23/2024 2:54 AM EDT [facility] Platelet Count 558(H) 155 - 369 10*3/uL LAB HEMATOLOGY METHOD 05/23/2024 2:54 AM EDT [facility] MCV 92 79 - 98 fL LAB HEMATOLOGY METHOD 05/23/2024 2:54 AM EDT [facility] MCH 28.7 26.0 - 32.0 pg LAB HEMATOLOGY METHOD 05/23/2024 2:54 AM EDT [facility] MCHC 31.3 30.7 - 35.5 g/dL LAB HEMATOLOGY METHOD 05/23/2024 2:54 AM EDT [facility] RDW 15.3(H) 11.5 - 14.5 % LAB HEMATOLOGY METHOD 05/23/2024 2:54 AM EDT [facility] MPV 9.8 8.8 - 12.5 fL LAB HEMATOLOGY METHOD 05/23/2024 2:54 AM EDT [facility] nRBC 0.6(H) <=0.0 per 100 WBCs LAB HEMATOLOGY METHOD 05/23/2024 2:54 AM EDT [facility] Differential Type Manual LAB HEMATOLOGY METHOD 05/23/2024 2:54 AM EDT [facility] Blood Venous blood specimen / Unknown Venipuncture / Unknown 05/23/2024 1:15 AM EDT 05/23/2024 1:23 AM EDT Narrative [facility] - 05/23/2024 2:54 AM EDT Therapeutic decision making should be based on absolute values, rather than percentages. The previously reported component Neutrophils % is no longer being reported.The previously reported component Lymphocytes % is no longer being reported.The previously reported component Monocytes % is no longer being reported.The previously reported component Eosinophils % is no longer being reported.The previously reported component Basophils % is no longer being reported.The previously reported component Immature Granulocytes % is no longer being reported.The previously reported component Absolute Neutrophils is no longer being reported.The previously reported component Absolute Lymphocytes is no longer being reported.The previously reported component Absolute Monocytes is no longer being reported.The previously reported component Absolute Eosinophils is no longer being reported.The previously reported component Absolute Basophils is no longer being reported.The previously reported component Absolute Immature Granulocytes is no longer being reported. Reyna Obregon APRN LAB BLOOD ORDERABLES Namrata l Result Performing Organization Address City/[facility] Co de Phone Number [facility] [address] [place] [address] * ECG Adult (05/23/2024 12:57 AM EDT) EKG DIAGNOSIS CLASS Abnormal MUSE ECG Ventricular Rate 108 BPM MUSE ECG Atrial Rate 108 BPM MUSE ECG WA Interval 118 ms MUSE ECG QRSD Interval 96 ms MUSE ECG QT Interval 380 ms MUSE ECG QTC Interval 509 ms MUSE ECG P [place] 83 degrees MUSE ECG R [place] 81 degrees MUSE ECG T Wave [place] 78 degrees MUSE ECG Diagnosis Sinus tachycardia MUSE ECG Diagnosis Low voltage chest leads MUSE ECG Diagnosis Incomplete right bundle branch block MUSE ECG Diagnosis ST & T wave abnormality, consider anterior ischemia MUSE ECG Diagnosis Abnormal ECG MUSE ECG Diagnosis MUSE ECG Diagnosis Confirmed by Graham Singleton ([id number]) on 05/23/2024 7:56:02 AM MUSE ECG 05/23/2024 12:5 7 AM EDT 05/23/2024 7:56 AM EDT Maite Austin MD ECG ORDERABLES Final Result Performing Organization Address [facility] Co de Phone Number MUSE ECG * (ABNORMAL) Renal Function Panel, Plasma (05/22/2024 6:50 PM EDT) Glucose, Plasma 126(H) 74 - 99 mg/dL 05/22/2024 7:40 PM EDT [facility] BUN, Plasma 13 7 - 21 mg/dL 05/22/2024 7:40 PM EDT [facility] Creatinine, Plasma 0.66 0.60 - 1.10 mg/dL 05/22/2024 7:40 PM EDT [facility] BUN/Creatinine Ratio 20 05/22/2024 7:40 PM EDT [facility] Sodium, Plasma 136 136 - 145 mmol/L 05/22/2024 7:40 PM EDT [facility] Potassium, Plasma 3.7 3.6 - 4.9 mmol/L 05/22/2024 7:40 PM EDT [facility] Chloride, Plasma 102 97 - 107 mmol/L 05/22/2024 7:40 PM EDT [facility] CO2, Plasma 26 22 - 29 mmol/L 05/22/2024 7:40 PM EDT [facility] Anion Gap 8 6 - 16 mmol/L 05/22/2024 7:40 PM EDT [facility] Total Calcium, Plasma 7.7(L) 8.9 - 10.2 mg/dL 05/22/2024 7:40 PM EDT [facility] Phosphorus, Plasma 3.6 2.5 - 4.5 mg/dL 05/22/2024 7:40 PM EDT [facility] Albumin, Plasma 2.0(L) 3.5 - 5.2 g/dL 05/22/2024 7:40 PM EDT [facility] eGFRcr 104.4 mL/min/1.7 3m*2 05/22/2024 7:40 PM EDT [facility] Comment:Reported eGFRcr in m L/min/1.73m2 is based the CKD-EPI 2020 equation that does not use a race coefficient. Blood Venous blood specimen / Unknown Venipuncture / Unknown 05/22/2024 6:50 PM EDT 05/22/2024 7:08 PM EDT us Reyna Obregon [employer] LAB BLOOD ORDERABLES Namrata l Result [facility] [address] [place] [address] * Magnesium (05/22/2024 6:50 PM EDT) Magnesium, Plasma 2.0 1.9 - 2.4 mg/dL 05/22/2024 7:40 PM EDT [facility] Blood Venous blood specimen / Unknown Venipuncture / Unknown 05/22/2024 6:50 PM EDT 05/22/2024 7:08 PM EDT us Reyna Obregon [employer] LAB BLOOD ORDERABLES Namrata l Result Performing Organization Address City/[facility]/ZIP Co de Phone Number [facility] [address] [place] [address] * (ABNORMAL) Ionized calcium, whole blood (05/22/2024 6:50 PM EDT) Ionized Calcium, Whole Blood 4.2(L) 4.6 - 5.1 mg/dL LAB HEMATOLOGY METHOD 05/22/2024 7:10 PM EDT [facility] Blood Venous blood specimen / Unknown Venipuncture / Unknown 05/22/2024 6:50 PM EDT 05/22/2024 7:06 PM EDT Reyna Obregon [employer] LAB BLOOD ORDERABLES Namrata l Result Performing Organization Address [facility] Co de Phone Number [facility] [address] [place] [address] * CT Abdomen Pelvis wo IV Contrast (05/22/2024 5:41 PM EDT) Anatomical Region Laterality Modality Abdomen, Pelvis Computed Tomogra phy Impressions 05/22/2024 6:08 PM EDT Mild distention of the ascending colon. Continued mild wall thickening and pericolonic fat stranding involving the distal transverse colon and descending colon. Findings may represent component of ileus or partial obstruction. Redemonstration of gas containing left upper quadrant collection, decreased in size from comparison. CRITICAL RESULT: No. COMMUNICATION: Per this written report. Drafted by Lorri Lopez MD on 05/22/2024 5:56 PM Final report signed by Lorri Lopez MD on 05/22/2024 6:08 PM Narrative 05/22/2024 6:08 PM EDT CLINICAL INDICATION: Bowel obstruction suspected TECHNIQUE: Multiple axial CT images were obtained from lung bases through pubic symphysis without the administration of IV contrast. Reformatted images in the coronal and sagittal planes were generated from the axial data set to facilitate diagnostic accuracy. Total DLP (Dose-Length Product): 461.41 mGy.cm. Please note: The reported value represents the total of one or more individual components during the CT acquisition on this date and at this time, and as such, the same value may appear in more than one CT report depending on the interpreting/reporting physicians. COMPARISON: CT abdomen pelvis May 20, 2024, [address] abdomen pelvis May 18, 2024, 4 days prior FINDINGS: Lower Chest: Unchanged small left and trace right pleural effusions and bilateral lower lung groundglass airspace disease. Surgical changes in the anterior mediastinum consistent with recent median sternotomy. Analysis of the abdominopelvic viscera is limited by the absence of intravenous contrast material. Solid Abdominal Organs: Homogenous hepatic attenuation. Prior cholecystectomy. No biliary ductal dilatation. Unremarkable spleen, pancreas, bilateral adrenal glands and kidneys. No hydronephrosis. GI Tract/Mesentery/Peritoneum: Nondistended stomach. Enteric tube tip in the gastric body. Normal caliber small bowel. Mild distention of the ascending colon. Oral contrast reaches the distal transverse colon. Mild wall thickening and pericolonic fat stranding involving the distal transverse and descending colon. Redemonstration gas containing fluid collection in the left upper quadrant with questionable connection to the splenic flexure (series 3 image 77). Collection measures 4.6 x 2.8 cm, previously 5 x 2 cm (series 3 image 67). Portion of the collection extends along the pancreatic body measuring up to 3.2 cm, previously 4 cm (series 3 image 81). Pelvic Viscera: Decompressed urinary bladder with De Los Santos catheter. Prior hysterectomy. Lymph Nodes/Vasculature: Few prominent upper abdominal and retroperitoneal lymph nodes are likely reactive. Portacaval 12 mm lymph node, unchanged. The aortoiliac vasculature is normal in caliber. Free Fluid: No free fluid in the abdomen. Trace free fluid in the pelvis. Musculoskeletal and Body Wall: No aggressive or suspicious findings. Procedure Note Lorri Lopez MD - 05/22/2024 CLINICAL INDICATION: Bowel obstruction suspected TECHNIQUE: Multiple axial CT images were obtained from lung bases through pubicsymphysis without the administration of IV contrast. Reformatted images inthe coronal and sagittal planes were generated from the axial data set tofacilitate diagnostic accuracy. Total DLP (Dose-Length Product): 461.41 mGy.cm. Please note: The reportedvalue represents the total of one or more individual components during theCT acquisition on this date and at this time, and as such, the same valuemay appear in more than one CT report depending on theinterpreting/reporting physicians. COMPARISON: CT abdomen pelvis May 20, 2024, [address] abdomen pelvis May 18, 2024, 4 days prior FINDINGS: Lower Chest: Unchanged small left and trace right pleural effusions andbilateral lower lung groundglass airspace disease. Surgical changes in theanterior mediastinum consistent with recent median sternotomy. Analysis of the abdominopelvic viscera is limited by the absence ofintravenous contrast material. Solid Abdominal Organs: Homogenous hepatic attenuation. Priorcholecystectomy. No biliary ductal dilatation. Unremarkable spleen,pancreas, bilateral adrenal glands and kidneys. No hydronephrosis. GI Tract/Mesentery/Peritoneum: Nondistended stomach. Enteric tube tip inthe gastric body. Normal caliber small bowel. Mild distention of theascending colon. Oral contrast reaches the distal transverse colon. Mildwall thickening and pericolonic fat stranding involving the distaltransverse and descending colon. Redemonstration gas containing fluidcollection in the left upper quadrant with questionable connection to thesplenic flexure (series 3 image 77). Collection measures 4.6 x 2.8 cm,previously 5 x 2 cm (series 3 image 67). Portion of the collection extendsalong the pancreatic body measuring up to 3.2 cm, previously 4 cm (series3 image 81). Pelvic Viscera: Decompressed urinary bladder with De Los Santos catheter. Priorhysterectomy. Lymph Nodes/Vasculature: Few prominent upper abdominal and retroperitoneallymph nodes are likely reactive. Portacaval 12 mm lymph node, unchanged.The aortoiliac vasculature is normal in caliber. Free Fluid: No free fluid in the abdomen. Trace free fluid in the pelvis. Musculoskeletal and Body Wall: No aggressive or suspicious findings. IMPRESSION: Mild distention of the ascending colon. Continued mild wall thickening andpericolonic fat stranding involving the distal transverse colon anddescending colon. Findings may represent component of ileus or partialobstruction. Redemonstration of gas containing left upper quadrant collection,decreased in size from comparison. CRITICAL RESULT: No. COMMUNICATION: Per this written report. Drafted by Lorri Lopez MD on 05/22/2024 5:56 PM Final report signed by Lorri Lopez MD on 05/22/2024 6:08 PM Reyna Andradeari [employer] IMG CT PROCEDURES Final R esult * (ABNORMAL) Renal Function Panel, Plasma (05/22/2024 11:32 AM EDT) Glucose, Plasma 143(H) 74 - 99 mg/dL 05/22/2024 12:15 PM EDT [facility] BUN, Plasma 13 7 - 21 mg/dL 05/22/2024 12:15 PM EDT [facility] Creatinine, Plasma 0.62 0.60 - 1.10 mg/dL 05/22/2024 12:15 PM EDT [facility] BUN/Creatinine Ratio 21 05/22/2024 12:15 PM EDT [facility] Sodium, Plasma 138 136 - 145 mmol/L 05/22/2024 12:15 PM EDT [facility] Potassium, Plasma 3.9 3.6 - 4.9 mmol/L 05/22/2024 12:15 PM EDT [facility] Chloride, Plasma 104 97 - 107 mmol/L 05/22/2024 12:15 PM EDT [facility] CO2, Plasma 25 22 - 29 mmol/L 05/22/2024 12:15 PM EDT [facility] Anion Gap 9 6 - 16 mmol/L 05/22/2024 12:15 PM EDT [facility] Total Calcium, Plasma 7.9(L) 8.9 - 10.2 mg/dL 05/22/2024 12:15 PM EDT [facility] Phosphorus, Plasma 3.5 2.5 - 4.5 mg/dL 05/22/2024 12:15 PM EDT [facility] Albumin, Plasma 2.1(L) 3.5 - 5.2 g/dL 05/22/2024 12:15 PM EDT [facility] eGFRcr 106.0 mL/min/1.7 3m*2 05/22/2024 12:15 PM EDT [facility] Comment:Reported eGFRcr in m L/min/1.73m2 is based the CKD-EPI 2020 equation that does not use a race coefficient. Blood Venous blood specimen / Unknown Venipuncture / Unknown 05/22/2024 11:32 AM EDT 05/22/2024 11:43 AM EDT Maite Austin MD LAB BLOOD ORDERABLES Final Resu lt Performing Organization Address City/[facility]/ZIP Co de Phone Number [facility] [address] [place] [address] * Magnesium (05/22/2024 11:32 AM EDT) Magnesium, Plasma 2.0 1.9 - 2.4 mg/dL 05/22/2024 12:15 PM EDT [facility] Blood Venous blood specimen / Unknown Venipuncture / Unknown 05/22/2024 11:32 AM EDT 05/22/2024 11:43 AM EDT Maite Austin MD LAB BLOOD ORDERABLES Final Resu lt Performing Organization Address [facility] Co de Phone Number [facility] [address] [place] [address] * (ABNORMAL) Ionized calcium, whole blood (05/22/2024 11:32 AM EDT) Ionized Calcium, Whole Blood 4.4(L) 4.6 - 5.1 mg/dL LAB HEMATOLOGY METHOD 05/22/2024 11:45 AM EDT [facility] Blood Venous blood specimen / Unknown Venipuncture / Unknown 05/22/2024 11:32 AM EDT 05/22/2024 11:44 AM EDT Maite Austin MD LAB BLOOD ORDERABLES Final Resu lt Performing Organization Address [facility] [place] [address] * Type and Screen (05/22/2024 6:18 AM EDT) ABO/Rh B Positive 05/22/2024 6:18 AM EDT [facility] Antibody Screen Negative 05/22/2024 6:18 AM EDT [facility] Specimen Expiration 05/25/2024 23:59 05/22/2024 6:18 AM EDT [facility] Blood Venous blood specimen / Unknown Venipuncture / Unknown 05/22/2024 6:18 AM EDT 05/22/2024 6:25 AM EDT Maite Austin MD LAB BLOOD BANK TEST ORDERABLES Final Result Performing Organization Address City/[facility] Co de Phone Number [facility] [address] * (ABNORMAL) Morphology (05/22/2024 6:13 AM EDT) RBC Fragments/Schist ocytes Slight(A) (none) LAB HEMATOLOGY METHOD 05/22/2024 8:34 AM EDT [facility] Polychromasia Moderate LAB HEMATOLOGY METHOD 05/22/2024 8:34 AM EDT [facility] Echinocytes Present LAB HEMATOLOGY METHOD 05/22/2024 8:34 AM EDT [facility] RBC Morphology Slide Reviewed LAB HEMATOLOGY METHOD 05/22/2024 8:34 AM EDT [facility] Platelet Estimate Platelet smear estimate consistent with automated count LAB HEMATOLOGY METHOD 05/22/2024 8:34 AM EDT [facility] Blood Venous blood specimen / Unknown Venipuncture / Unknown 05/22/2024 6:13 AM EDT 05/22/2024 6:20 AM EDT Maite Austin MD LAB BLOOD ORDERABLES Final Resu lt Performing Organization Address City/[facility]/ZIP Co de Phone Number [facility] [address] [place] [address] * (ABNORMAL) Manual Differential (05/22/2024 6:13 AM EDT) Blasts % 0 % LAB HEMATOLOGY METHOD 05/22/2024 8:34 AM EDT [facility] Promyelocytes % 0 % LAB HEMATOLOGY METHOD 05/22/2024 8:34 AM EDT [facility] Myelocytes % 2 % LAB HEMATOLOGY METHOD 05/22/2024 8:34 AM EDT [facility] Metamyelocytes % 3 % LAB HEMATOLOGY METHOD 05/22/2024 8:34 AM EDT [facility] Neutrophils % 69 % LAB HEMATOLOGY METHOD 05/22/2024 8:34 AM EDT [facility] Lymphocytes % 13 % LAB HEMATOLOGY METHOD 05/22/2024 8:34 AM EDT [facility] Reactive Lymphocytes % 1 % LAB HEMATOLOGY METHOD 05/22/2024 8:34 AM EDT [facility] Monocytes % 9 % LAB HEMATOLOGY METHOD 05/22/2024 8:34 AM EDT [facility] Eosinophils % 2 % LAB HEMATOLOGY METHOD 05/22/2024 8:34 AM EDT [facility] Basophils % 1 % LAB HEMATOLOGY METHOD 05/22/2024 8:34 AM EDT [facility] Blasts Absolute 0.00 10*3/UL LAB HEMATOLOGY METHOD 05/22/2024 8:34 AM EDT [facility] Promyelocytes Absolute 0.00 10*3/uL LAB HEMATOLOGY METHOD 05/22/2024 8:34 AM EDT [facility] Myelocytes Absolute 0.23 10*3/uL LAB HEMATOLOGY METHOD 05/22/2024 8:34 AM EDT [facility] Metamyelocytes Absolute 0.35 10*3/uL LAB HEMATOLOGY METHOD 05/22/2024 8:34 AM EDT [facility] Neutrophils Absolute 7.98(H) 1.60 - 6.10 10*3/uL LAB HEMATOLOGY METHOD 05/22/2024 8:34 AM EDT [facility] Lymphocytes Absolute 1.50 1.20 - 3.90 10*3/uL LAB HEMATOLOGY METHOD 05/22/2024 8:34 AM EDT [facility] Reactive Lymphocytes Absolute 0.12 10*3/uL LAB HEMATOLOGY METHOD 05/22/2024 8:34 AM EDT [facility] Monocytes Absolute 1.04(H) 0.30 - 0.90 10*3/uL LAB HEMATOLOGY METHOD 05/22/2024 8:34 AM EDT [facility] Eosinophils Absolute 0.23 0.00 - 0.50 10*3/uL LAB HEMATOLOGY METHOD 05/22/2024 8:34 AM EDT [facility] Basophils Absolute 0.12(H) 0.00 - 0.10 10*3/uL LAB HEMATOLOGY METHOD 05/22/2024 8:34 AM EDT [facility] Blood Venous blood specimen / Unknown Venipuncture / Unknown 05/22/2024 6:13 AM EDT 05/22/2024 6:20 AM EDT us Maite Austin MD LAB BLOOD ORDERABLES Final Resu lt [facility] [address] [place] [address] * (ABNORMAL) Comprehensive metabolic panel (05/22/2024 6:13 AM EDT) Glucose, Plasma 115(H) 74 - 99 mg/dL 05/22/2024 7:01 AM EDT [facility] BUN, Plasma 12 7 - 21 mg/dL 05/22/2024 7:01 AM EDT [facility] Creatinine, Plasma 0.61 0.60 - 1.10 mg/dL 05/22/2024 7:01 AM EDT [facility] BUN/Creatinine Ratio 20 05/22/2024 7:01 AM EDT [facility] Sodium, Plasma 139 136 - 145 mmol/L 05/22/2024 7:01 AM EDT [facility] Potassium, Plasma 3.6 3.6 - 4.9 mmol/L 05/22/2024 7:01 AM EDT [facility] Chloride, Plasma 107 97 - 107 mmol/L 05/22/2024 7:01 AM EDT [facility] CO2, Plasma 24 22 - 29 mmol/L 05/22/2024 7:01 AM EDT [facility] Anion Gap 8 6 - 16 mmol/L 05/22/2024 7:01 AM EDT [facility] Total Calcium, Plasma 7.0(L) 8.9 - 10.2 mg/dL 05/22/2024 7:01 AM EDT [facility] Total Protein 5.4(L) 6.3 - 7.9 g/dL 05/22/2024 7:01 AM EDT [facility] Albumin, Plasma 1.8(L) 3.5 - 5.2 g/dL 05/22/2024 7:01 AM EDT [facility] AST, Plasma 31 10 - 35 U/L 05/22/2024 7:01 AM EDT [facility] ALT, Plasma 16 10 - 35 U/L 05/22/2024 7:01 AM EDT [facility] Alkaline Phosphatase, Plasma 112(H) 35 - 104 U/L 05/22/2024 7:01 AM EDT [facility] Total Bilirubin, Plasma 0.7 0.2 - 1.1 mg/dL 05/22/2024 7:01 AM EDT [facility] eGFRcr 106.4 mL/min/1.7 3m*2 05/22/2024 7:01 AM EDT [facility] Comment:Reported eGFRcr in m L/min/1.73m2 is based the CKD-EPI 2020 equation that does not use a race coefficient. Blood Venous blood specimen / Unknown Venipuncture / Unknown 05/22/2024 6:13 AM EDT 05/22/2024 6:20 AM EDT us Maite Austin MD LAB BLOOD ORDERABLES Final Resu lt [facility] [address] [place] [address] * (ABNORMAL) CBC and differential (05/22/2024 6:13 AM EDT) WBC Count 11.56(H) 3.70 - 10.30 10*3/uL LAB HEMATOLOGY METHOD 05/22/2024 8:34 AM EDT [facility] RBC Count 3.18(L) 3.90 - 5.20 10*6/uL LAB HEMATOLOGY METHOD 05/22/2024 8:34 AM EDT [facility] HGB 9.2(L) 11.2 - 15.7 g/dL LAB HEMATOLOGY METHOD 05/22/2024 8:34 AM EDT [facility] HCT 29.4(L) 34.0 - 45.0 % LAB HEMATOLOGY METHOD 05/22/2024 8:34 AM EDT [facility] Platelet Count 523(H) 155 - 369 10*3/uL LAB HEMATOLOGY METHOD 05/22/2024 8:34 AM EDT [facility] MCV 93 79 - 98 fL LAB HEMATOLOGY METHOD 05/22/2024 8:34 AM EDT [facility] MCH 28.9 26.0 - 32.0 pg LAB HEMATOLOGY METHOD 05/22/2024 8:34 AM EDT [facility] MCHC 31.3 30.7 - 35.5 g/dL LAB HEMATOLOGY METHOD 05/22/2024 8:34 AM EDT [facility] RDW 15.3(H) 11.5 - 14.5 % LAB HEMATOLOGY METHOD 05/22/2024 8:34 AM EDT [facility] MPV 9.7 8.8 - 12.5 fL LAB HEMATOLOGY METHOD 05/22/2024 8:34 AM EDT [facility] nRBC 0.4(H) <=0.0 per 100 WBCs LAB HEMATOLOGY METHOD 05/22/2024 8:34 AM EDT [facility] Differential Type Manual LAB HEMATOLOGY METHOD 05/22/2024 8:34 AM EDT [facility] Blood Venous blood specimen / Unknown Venipuncture / Unknown 05/22/2024 6:13 AM EDT 05/22/2024 6:20 AM EDT Narrative [facility] - 05/22/2024 8:34 AM EDT Therapeutic decision making should be based on absolute values, rather than percentages. The previously reported component Neutrophils % is no longer being reported.The previously reported component Lymphocytes % is no longer being reported.The previously reported component Monocytes % is no longer being reported.The previously reported component Eosinophils % is no longer being reported.The previously reported component Basophils % is no longer being reported.The previously reported component Immature Granulocytes % is no longer being reported.The previously reported component Absolute Neutrophils is no longer being reported.The previously reported component Absolute Lymphocytes is no longer being reported.The previously reported component Absolute Monocytes is no longer being reported.The previously reported component Absolute Eosinophils is no longer being reported.The previously reported component Absolute Basophils is no longer being reported.The previously reported component Absolute Immature Granulocytes is no longer being reported. us Maite Austin MD LAB BLOOD ORDERABLES Final Resu lt Performing Organization Address City/[facility]/ZIP Co de Phone Number [facility] [address] [place] [address] * (ABNORMAL) Ionized calcium, whole blood (05/22/2024 6:13 AM EDT) Ionized Calcium, Whole Blood 4.0(L) 4.6 - 5.1 mg/dL LAB HEMATOLOGY METHOD 05/22/2024 6:24 AM EDT [facility] Blood Venous blood specimen / Unknown Venipuncture / Unknown 05/22/2024 6:13 AM EDT 05/22/2024 6:22 AM EDT us Maite Austin MD LAB BLOOD ORDERABLES Final Resu lt Performing Organization Address [facility] Co de Phone Number [facility] [address] [place] [address] * (ABNORMAL) Morphology (05/22/2024 5:18 AM EDT) Pathologist [facility] RBC Fragments/Schist ocytes Slight(A) (none) LAB HEMATOLOGY METHOD 05/22/2024 7:05 AM EDT [facility] Polychromasia Slight LAB HEMATOLOGY METHOD 05/22/2024 7:05 AM EDT [facility] Echinocytes Present LAB HEMATOLOGY METHOD 05/22/2024 7:05 AM EDT [facility] RBC Morphology Slide Reviewed LAB HEMATOLOGY METHOD 05/22/2024 7:05 AM EDT [facility] Platelet Estimate Platelet smear estimate consistent with automated count LAB HEMATOLOGY METHOD 05/22/2024 7:05 AM EDT [facility] Blood Venous blood specimen / Unknown Venipuncture / Unknown 05/22/2024 5:18 AM EDT 05/22/2024 5:25 AM EDT us Reyna Obregon APRN LAB BLOOD ORDERABLES Namrata l Result Performing Organization Address [facility]/ZIP Co de Phone Number [facility] [address] [place] [address] * (ABNORMAL) Manual Differential (05/22/2024 5:18 AM EDT) Blasts % 0 % LAB HEMATOLOGY METHOD 05/22/2024 7:05 AM EDT [facility] Promyelocytes % 0 % LAB HEMATOLOGY METHOD 05/22/2024 7:05 AM EDT [facility] Myelocytes % 2 % LAB HEMATOLOGY METHOD 05/22/2024 7:05 AM EDT [facility] Metamyelocytes % 4 % LAB HEMATOLOGY METHOD 05/22/2024 7:05 AM EDT [facility] Neutrophils % 64 % LAB HEMATOLOGY METHOD 05/22/2024 7:05 AM EDT [facility] Lymphocytes % 17 % LAB HEMATOLOGY METHOD 05/22/2024 7:05 AM EDT [facility] Reactive Lymphocytes % 2 % LAB HEMATOLOGY METHOD 05/22/2024 7:05 AM EDT [facility] Monocytes % 6 % LAB HEMATOLOGY METHOD 05/22/2024 7:05 AM EDT [facility] Eosinophils % 5 % LAB HEMATOLOGY METHOD 05/22/2024 7:05 AM EDT [facility] Basophils % 0 % LAB HEMATOLOGY METHOD 05/22/2024 7:05 AM EDT [facility] Blasts Absolute 0.00 10*3/UL LAB HEMATOLOGY METHOD 05/22/2024 7:05 AM EDT [facility] Promyelocytes Absolute 0.00 10*3/uL LAB HEMATOLOGY METHOD 05/22/2024 7:05 AM EDT [facility] Myelocytes Absolute 0.20 10*3/uL LAB HEMATOLOGY METHOD 05/22/2024 7:05 AM EDT [facility] Metamyelocytes Absolute 0.40 10*3/uL LAB HEMATOLOGY METHOD 05/22/2024 7:05 AM EDT [facility] Neutrophils Absolute 6.39(H) 1.60 - 6.10 10*3/uL LAB HEMATOLOGY METHOD 05/22/2024 7:05 AM EDT [facility] Lymphocytes Absolute 1.70 1.20 - 3.90 10*3/uL LAB HEMATOLOGY METHOD 05/22/2024 7:05 AM EDT [facility] Reactive Lymphocytes Absolute 0.20 10*3/uL LAB HEMATOLOGY METHOD 05/22/2024 7:05 AM EDT [facility] Monocytes Absolute 0.60 0.30 - 0.90 10*3/uL LAB HEMATOLOGY METHOD 05/22/2024 7:05 AM EDT [facility] Eosinophils Absolute 0.50 0.00 - 0.50 10*3/uL LAB HEMATOLOGY METHOD 05/22/2024 7:05 AM EDT [facility] Basophils Absolute 0.00 0.00 - 0.10 10*3/uL LAB HEMATOLOGY METHOD 05/22/2024 7:05 AM EDT [facility] Blood Venous blood specimen / Unknown Venipuncture / Unknown 05/22/2024 5:18 AM EDT 05/22/2024 5:25 AM EDT us Reyna Obregon APRN LAB BLOOD ORDERABLES Namrata l Result Performing Organization Address City/[facility]/ZIP Co de Phone Number [facility] [address] [place] [address] * (ABNORMAL) Ionized calcium, whole blood (05/22/2024 5:18 AM EDT) Ionized Calcium, Whole Blood 3.4(L) 4.6 - 5.1 mg/dL LAB HEMATOLOGY METHOD 05/22/2024 5:27 AM EDT [facility] Blood Venous blood specimen / Unknown Venipuncture / Unknown 05/22/2024 5:18 AM EDT 05/22/2024 5:26 AM EDT us Maite Austin MD LAB BLOOD ORDERABLES Final Resu lt Performing Organization Address City/[facility]/ZIP Co de Phone Number [facility] [address] [place] [address] * (ABNORMAL) CBC and Differential (05/22/2024 5:18 AM EDT) WBC Count 9.98 3.70 - 10.30 10*3/uL LAB HEMATOLOGY METHOD 05/22/2024 7:05 AM EDT [facility] RBC Count 2.58(L) 3.90 - 5.20 10*6/uL LAB HEMATOLOGY METHOD 05/22/2024 7:05 AM EDT [facility] HGB 7.6(L) 11.2 - 15.7 g/dL LAB HEMATOLOGY METHOD 05/22/2024 7:05 AM EDT [facility] HCT 23.8(L) 34.0 - 45.0 % LAB HEMATOLOGY METHOD 05/22/2024 7:05 AM EDT [facility] Platelet Count 431(H) 155 - 369 10*3/uL LAB HEMATOLOGY METHOD 05/22/2024 7:05 AM EDT [facility] MCV 92 79 - 98 fL LAB HEMATOLOGY METHOD 05/22/2024 7:05 AM EDT [facility] MCH 29.5 26.0 - 32.0 pg LAB HEMATOLOGY METHOD 05/22/2024 7:05 AM EDT [facility] MCHC 31.9 30.7 - 35.5 g/dL LAB HEMATOLOGY METHOD 05/22/2024 7:05 AM EDT [facility] RDW 15.5(H) 11.5 - 14.5 % LAB HEMATOLOGY METHOD 05/22/2024 7:05 AM EDT [facility] MPV 9.4 8.8 - 12.5 fL LAB HEMATOLOGY METHOD 05/22/2024 7:05 AM EDT [facility] nRBC 0.4(H) <=0.0 per 100 WBCs LAB HEMATOLOGY METHOD 05/22/2024 7:05 AM EDT [facility] Differential Type Manual LAB HEMATOLOGY METHOD 05/22/2024 7:05 AM EDT [facility] Blood Venous blood specimen / Unknown Venipuncture / Unknown 05/22/2024 5:18 AM EDT 05/22/2024 5:25 AM EDT Narrative [facility] - 05/22/2024 7:05 AM EDT Therapeutic decision making should be based on absolute values, rather than percentages. The previously reported component Neutrophils % is no longer being reported.The previously reported component Lymphocytes % is no longer being reported.The previously reported component Monocytes % is no longer being reported.The previously reported component Eosinophils % is no longer being reported.The previously reported component Basophils % is no longer being reported.The previously reported component Immature Granulocytes % is no longer being reported.The previously reported component Absolute Neutrophils is no longer being reported.The previously reported component Absolute Lymphocytes is no longer being reported.The previously reported component Absolute Monocytes is no longer being reported.The previously reported component Absolute Eosinophils is no longer being reported.The previously reported component Absolute Basophils is no longer being reported.The previously reported component Absolute Immature Granulocytes is no longer being reported. Reyna Obregon APRN LAB BLOOD ORDERABLES Namrata otto Result [facility] [address] [place] [address] * XR Chest 1 View (05/22/2024 3:44 AM EDT) Anatomical Region Laterality Modality Chest Digital Radiogra phy Impressions 05/22/2024 8:56 AM EDT Small left pleural effusion. CRITICAL RESULT: No. COMMUNICATION: Per this written report. By electronically signing this report, I, the attending physician, attest that I have personally reviewed the images/data for the above examination(s) and agree with the final edited report. Drafted by GER Mckee on 05/22/2024 8:42 AM Final report signed by Edson Ambrose MD on 05/22/2024 8:56 AM Narrative 05/22/2024 8:56 AM EDT CLINICAL INDICATION: post op cardiac surgery monitoring TECHNIQUE: XR CHEST 1 VIEW COMPARISON: May 21, 2024. FINDINGS: Stable support hardware. Cardiac silhouette and mediastinal contours are stable. Small increased left pleural effusion. No pneumothorax. No new pulmonary opacities. Procedure Note Edson Ambrose MD - 05/22/2024 CLINICAL INDICATION: post op cardiac surgery monitoring TECHNIQUE: XR CHEST 1 VIEW COMPARISON: May 21, 2024. FINDINGS: Stable support hardware. Cardiac silhouette and mediastinal contours arestable. Small increased left pleural effusion. No pneumothorax. No newpulmonary opacities. IMPRESSION: Small left pleural effusion. CRITICAL RESULT: No. COMMUNICATION: Per this written report. By electronically signing this report, I, the attending physician, attestthat I have personally reviewed the images/data for the aboveexamination(s) and agree with the final edited report. Drafted by GER Mckee on 05/22/2024 8:42 AM Final report signed by Edson Ambrose MD on 05/22/2024 8:56 AM us Maite Austin MD IMG XR PROCEDURES Final Result * (ABNORMAL) Renal Function Panel, Plasma (05/22/2024 12:01 AM EDT) Glucose, Plasma 114(H) 74 - 99 mg/dL 05/22/2024 12:41 AM EDT [facility] BUN, Plasma 11 7 - 21 mg/dL 05/22/2024 12:41 AM EDT [facility] Creatinine, Plasma 0.62 0.60 - 1.10 mg/dL 05/22/2024 12:41 AM EDT [facility] BUN/Creatinine Ratio 18 05/22/2024 12:41 AM EDT [facility] Sodium, Plasma 139 136 - 145 mmol/L 05/22/2024 12:41 AM EDT [facility] Potassium, Plasma 4.2 3.6 - 4.9 mmol/L 05/22/2024 12:41 AM EDT [facility] Chloride, Plasma 110(H) 97 - 107 mmol/L 05/22/2024 12:41 AM EDT [facility] CO2, Plasma 22 22 - 29 mmol/L 05/22/2024 12:41 AM EDT [facility] Anion Gap 7 6 - 16 mmol/L 05/22/2024 12:41 AM EDT [facility] Total Calcium, Plasma 7.5(L) 8.9 - 10.2 mg/dL 05/22/2024 12:41 AM EDT [facility] Phosphorus, Plasma 3.1 2.5 - 4.5 mg/dL 05/22/2024 12:41 AM EDT [facility] Albumin, Plasma 1.8(L) 3.5 - 5.2 g/dL 05/22/2024 12:41 AM EDT [facility] eGFRcr 106.0 mL/min/1.7 3m*2 05/22/2024 12:41 AM EDT [facility] Comment:Reported eGFRcr in m L/min/1.73m2 is based the CKD-EPI 2020 equation that does not use a race coefficient. Blood Venous blood specimen / Unknown Venipuncture / Unknown 05/22/2024 12:01 AM EDT 05/22/2024 12:10 AM EDT us Maite Austin MD LAB BLOOD ORDERABLES Final Resu lt Performing Organization Address City/[facility]/ZIP Co de Phone Number [facility] [address] [place] [address] * Magnesium (05/22/2024 12:01 AM EDT) Magnesium, Plasma 1.9 1.9 - 2.4 mg/dL 05/22/2024 12:41 AM EDT [facility] Blood Venous blood specimen / Unknown Venipuncture / Unknown 05/22/2024 12:01 AM EDT 05/22/2024 12:10 AM EDT us Maite Austin MD LAB BLOOD ORDERABLES Final Resu lt Performing Organization Address [facility] Co de Phone Number [facility] [address] [place] [address] * (ABNORMAL) Ionized calcium, whole blood (05/22/2024 12:01 AM EDT) Ionized Calcium, Whole Blood 4.3(L) 4.6 - 5.1 mg/dL LAB HEMATOLOGY METHOD 05/22/2024 12:13 AM EDT [facility] Blood Venous blood specimen / Unknown Venipuncture / Unknown 05/22/2024 12:01 AM EDT 05/22/2024 12:10 AM EDT us Maite Austin MD LAB BLOOD ORDERABLES Final Resu lt Performing Organization Address [facility]/ZIP Co de Phone Number [facility] [address] [place] [address] * (ABNORMAL) Renal Function Panel, Plasma (05/21/2024 6:00 PM EDT) Glucose, Plasma 121(H) 74 - 99 mg/dL 05/21/2024 7:17 PM EDT [facility] BUN, Plasma 11 7 - 21 mg/dL 05/21/2024 7:17 PM EDT [facility] Creatinine, Plasma 0.58(L) 0.60 - 1.10 mg/dL 05/21/2024 7:17 PM EDT [facility] BUN/Creatinine Ratio 19 05/21/2024 7:17 PM EDT [facility] Sodium, Plasma 139 136 - 145 mmol/L 05/21/2024 7:17 PM EDT [facility] Potassium, Plasma 4.7 3.6 - 4.9 mmol/L 05/21/2024 7:17 PM EDT [facility] Chloride, Plasma 109(H) 97 - 107 mmol/L 05/21/2024 7:17 PM EDT [facility] CO2, Plasma 23 22 - 29 mmol/L 05/21/2024 7:17 PM EDT [facility] Anion Gap 7 6 - 16 mmol/L 05/21/2024 7:17 PM EDT [facility] Total Calcium, Plasma 7.7(L) 8.9 - 10.2 mg/dL 05/21/2024 7:17 PM EDT [facility] Phosphorus, Plasma 4.1 2.5 - 4.5 mg/dL 05/21/2024 7:17 PM EDT [facility] Albumin, Plasma 1.9(L) 3.5 - 5.2 g/dL 05/21/2024 7:17 PM EDT [facility] eGFRcr 107.7 mL/min/1.7 3m*2 05/21/2024 7:17 PM EDT [facility] Comment:Reported eGFRcr in m L/min/1.73m2 is based the CKD-EPI 2020 equation that does not use a race coefficient. Blood Venous blood specimen / Unknown Venipuncture / Unknown 05/21/2024 6:00 PM EDT 05/21/2024 6:24 PM EDT us Reyna Obregon [employer] LAB BLOOD ORDERABLES Namrata l Result [facility] [address] [place] [address] * Magnesium (05/21/2024 6:00 PM EDT) Magnesium, Plasma 2.1 1.9 - 2.4 mg/dL 05/21/2024 7:17 PM EDT [facility] Blood Venous blood specimen / Unknown Venipuncture / Unknown 05/21/2024 6:00 PM EDT 05/21/2024 6:24 PM EDT Reyna Obregon APRN LAB BLOOD ORDERABLES Namrata l Result [facility] [address] [place] [address] * (ABNORMAL) Ionized calcium, whole blood (05/21/2024 6:00 PM EDT) [facility] Ionized Calcium, Whole Blood 4.5(L) 4.6 - 5.1 mg/dL LAB HEMATOLOGY METHOD 05/21/2024 6:09 PM EDT [facility] Blood Venous blood specimen / Unknown Venipuncture / Unknown 05/21/2024 6:00 PM EDT 05/21/2024 6:08 PM EDT Reyna Obregon APRN LAB BLOOD ORDERABLES Namrata l Result Performing Organization Address City/[facility] Co de Phone Number [facility] [address] [place] [address] * (ABNORMAL) Renal Function Panel, Plasma (05/21/2024 12:09 PM EDT) Glucose, Plasma 139(H) 74 - 99 mg/dL 05/21/2024 1:09 PM EDT [facility] BUN, Plasma 13 7 - 21 mg/dL 05/21/2024 1:09 PM EDT [facility] Creatinine, Plasma 0.62 0.60 - 1.10 mg/dL 05/21/2024 1:09 PM EDT [facility] BUN/Creatinine Ratio 21 05/21/2024 1:09 PM EDT [facility] Sodium, Plasma 139 136 - 145 mmol/L 05/21/2024 1:09 PM EDT [facility] Potassium, Plasma 4.3 3.6 - 4.9 mmol/L 05/21/2024 1:09 PM EDT [facility] Chloride, Plasma 111(H) 97 - 107 mmol/L 05/21/2024 1:09 PM EDT [facility] CO2, Plasma 21(L) 22 - 29 mmol/L 05/21/2024 1:09 PM EDT [facility] Anion Gap 7 6 - 16 mmol/L 05/21/2024 1:09 PM EDT [facility] Total Calcium, Plasma 7.5(L) 8.9 - 10.2 mg/dL 05/21/2024 1:09 PM EDT [facility] Phosphorus, Plasma 2.9 2.5 - 4.5 mg/dL 05/21/2024 1:09 PM EDT [facility] Albumin, Plasma 1.9(L) 3.5 - 5.2 g/dL 05/21/2024 1:09 PM EDT [facility] eGFRcr 106.0 mL/min/1.7 3m*2 05/21/2024 1:09 PM EDT [facility] Comment:Reported eGFRcr in m L/min/1.73m2 is based the CKD-EPI 2020 equation that does not use a race coefficient. Blood Arterial blood specimen / Unknown Venipuncture / Unknown 05/21/2024 12:09 PM EDT 05/21/2024 12:20 PM EDT Reyna Obregon APRN LAB BLOOD ORDERABLES Namrata l Result [facility] [address] [place] [address] * Magnesium (05/21/2024 12:09 PM EDT) Magnesium, Plasma 2.2 1.9 - 2.4 mg/dL 05/21/2024 1:09 PM EDT [facility] Blood Arterial blood specimen / Unknown Venipuncture / Unknown 05/21/2024 12:09 PM EDT 05/21/2024 12:20 PM EDT us Reyna A Sabas [employer] LAB BLOOD ORDERABLES Namrata l Result Performing Organization Address City/[facility]/ZIP Co de Phone Number [facility] [address] [place] [address] * (ABNORMAL) Ionized calcium, whole blood (05/21/2024 12:09 PM EDT) Ionized Calcium, Whole Blood 4.2(L) 4.6 - 5.1 mg/dL LAB HEMATOLOGY METHOD 05/21/2024 12:21 PM EDT [facility] Blood Arterial blood specimen / Unknown Venipuncture / Unknown 05/21/2024 12:09 PM EDT 05/21/2024 12:19 PM EDT us Reyna Obregon [employer] LAB BLOOD ORDERABLES Namrata l Result Performing Organization Address [facility] [place] [address] * [place] [facility], E/M 30-74 MINUTES (05/21/2024 11:41 AM EDT) Narrative Edson Lewis MD - 05/21/2024 11:41 AM EDT Edson Lewis MD 05/21/2024 1:10 PM Critical Care Performed by: Edson Lewis MD Authorized by: Edson Lewis MD Critical care provider statement: Critical care time (minutes): 38 Critical care time was exclusive of: Separately billable procedures and treating other patients and teaching time Critical care was time spent personally by me on the following activities: Development of treatment plan with patient or surrogate, ordering and performing treatments and interventions, discussions with consultants, ordering and review of laboratory studies, discussions with primary provider, ordering and review of radiographic studies, evaluation of patient's response to treatment and examination of patient Critical care statement: I saw and evaluated the patient with the resident/ fellow. I discussed the case with the resident/ fellow and agree with the findings and plan as documented. Comments: Gastric perf. NPO. TPN Antibiotics for now. us Edson Lewis MD IN CLINIC/BEDSIDE ORDERABL ES Final Result * (ABNORMAL) POCT glucose meter (05/21/2024 6:01 AM EDT) POCT Glucose 135(H) 74 - 99 mg/dL 05/21/2024 6:03 AM EDT [facility] Comment:Accuracy of a glucos e result obtained from a capillary whole blood specimen relies upon adequate, non-compromised capillary blood flow. If the capillary glucose result is not consistent with the patient's clinical signs and symptoms, glucose testing should be repeated with either an arterial or venous sample on the glucometer or sent to the main labortory for testing. Comment 05/21/2024 6:03 AM EDT [facility] Field Hockey Coach ID Antoni, Cass 05/21/2024 6:03 AM EDT [facility] Device ID [id number] 05/21/2024 6:03 AM EDT [facility] Specimen Type POC Arterial 05/21/2024 6:03 AM EDT [facility] Blood Arterial blood specimen / Unknown 05/21/2024 6:01 AM EDT 05/21/2024 6:03 AM EDT us Maite Austin MD LAB POINT OF CARE TE ST DOCKED DEVICE UNSOLICITED RESULTS Final Result Performing Organization Address City/[facility]/ZIP Co de Phone Number [facility] [address] [place] [address] * (ABNORMAL) Ionized calcium, whole blood (05/21/2024 5:56 AM EDT) Ionized Calcium, Whole Blood 4.2(L) 4.6 - 5.1 mg/dL LAB HEMATOLOGY METHOD 05/21/2024 6:12 AM EDT [facility] Blood Venous blood specimen / Unknown Venipuncture / Unknown 05/21/2024 5:56 AM EDT 05/21/2024 6:11 AM EDT us Lauren Noguera [employer], [employer], DNP LAB BLOOD ORDERABL ES Final Result [facility] [address] [place] [address] * Magnesium (05/21/2024 5:56 AM EDT) Magnesium, Plasma 2.2 1.9 - 2.4 mg/dL 05/21/2024 6:45 AM EDT [facility] Blood Venous blood specimen / Unknown Venipuncture / Unknown 05/21/2024 5:56 AM EDT 05/21/2024 6:12 AM EDT us Lauren Noguera [employer], [employer], DNP LAB BLOOD ORDERABL ES Final Result [facility] [address] [place] [address] * (ABNORMAL) Renal Function Panel, Plasma (05/21/2024 5:56 AM EDT) Glucose, Plasma 139(H) 74 - 99 mg/dL 05/21/2024 6:45 AM EDT [facility] BUN, Plasma 13 7 - 21 mg/dL 05/21/2024 6:45 AM EDT [facility] Creatinine, Plasma 0.68 0.60 - 1.10 mg/dL 05/21/2024 6:45 AM EDT [facility] BUN/Creatinine Ratio 19 05/21/2024 6:45 AM EDT [facility] Sodium, Plasma 140 136 - 145 mmol/L 05/21/2024 6:45 AM EDT [facility] Potassium, Plasma 3.7 3.6 - 4.9 mmol/L 05/21/2024 6:45 AM EDT [facility] Chloride, Plasma 108(H) 97 - 107 mmol/L 05/21/2024 6:45 AM EDT [facility] CO2, Plasma 22 22 - 29 mmol/L 05/21/2024 6:45 AM EDT [facility] Anion Gap 10 6 - 16 mmol/L 05/21/2024 6:45 AM EDT [facility] Total Calcium, Plasma 7.3(L) 8.9 - 10.2 mg/dL 05/21/2024 6:45 AM EDT [facility] Phosphorus, Plasma 3.9 2.5 - 4.5 mg/dL 05/21/2024 6:45 AM EDT [facility] Albumin, Plasma 2.0(L) 3.5 - 5.2 g/dL 05/21/2024 6:45 AM EDT [facility] eGFRcr 103.6 mL/min/1.7 3m*2 05/21/2024 6:45 AM EDT [facility] Comment:Reported eGFRcr in m L/min/1.73m2 is based the CKD-EPI 2020 equation that does not use a race coefficient. Blood Venous blood specimen / Unknown Venipuncture / Unknown 05/21/2024 5:56 AM EDT 05/21/2024 6:12 AM EDT us Lauren Noguera [employer], [employer], DNP LAB BLOOD ORDERABL ES Final Result [facility] [address] [place] [address] * XR Chest 1 View (05/21/2024 2:21 AM EDT) Anatomical Region Laterality Modality Chest Digital Radiogra phy Impressions 05/21/2024 8:42 AM EDT No significant interval changes. CRITICAL RESULT: No. COMMUNICATION: Per this written report. By electronically signing this report, I, the attending physician, attest that I have personally reviewed the images/data for the above examination(s) and agree with the final edited report. Drafted by Mino Hobbs MD on 05/21/2024 8:07 AM Final report signed by Champ Oden MD on 05/21/2024 8:42 AM Narrative 05/21/2024 8:42 AM EDT CLINICAL INDICATION: post op cardiac surgery monitoring TECHNIQUE: XR CHEST 1 VIEW COMPARISON: May 20, 2024 FINDINGS: Stable support hardware. Stable cardiomediastinal silhouette. No new consolidation. No pneumothorax or pleural effusion. Procedure Note Champ Oden MD - 05/21/2024 CLINICAL INDICATION: post op cardiac surgery monitoring TECHNIQUE: XR CHEST 1 VIEW COMPARISON: May 20, 2024 FINDINGS: Stable support hardware. Stable cardiomediastinal silhouette. No newconsolidation. No pneumothorax or pleural effusion. IMPRESSION: No significant interval changes. CRITICAL RESULT: No. COMMUNICATION: Per this written report. By electronically signing this report, I, the attending physician, baron I have personally reviewed the images/data for the aboveexamination(s) and agree with the final edited report. Drafted by Mino Hobbs MD on 05/21/2024 8:07 AM Final report signed by Champ Oden MD on 05/21/2024 8:42 AM us Maite Austin MD IMG XR PROCEDURES Final Result * (ABNORMAL) Ionized calcium, whole blood (05/21/2024 12:09 AM EDT) [facility] Ionized Calcium, Whole Blood 4.3(L) 4.6 - 5.1 mg/dL LAB HEMATOLOGY METHOD 05/21/2024 12:16 AM EDT [facility] Blood Venous blood specimen / Unknown Venipuncture / Unknown 05/21/2024 12:09 AM EDT 05/21/2024 12:15 AM EDT us Lauren Noguera APRN, PAINTER SHIPYARD, DNP LAB BLOOD ORDERABL ES Final Result [facility] [address] [place] [address] * Morphology (05/20/2024 11:48 PM EDT) Pathologist [facility] Polychromasia Slight LAB HEMATOLOGY METHOD 05/21/2024 1:20 AM EDT [facility] RBC Morphology Slide Reviewed LAB HEMATOLOGY METHOD 05/21/2024 1:20 AM EDT [facility] Platelet Estimate Platelet smear estimate consistent with automated count LAB HEMATOLOGY METHOD 05/21/2024 1:20 AM EDT [facility] Blood Venous blood specimen / Unknown Venipuncture / Unknown 05/20/2024 11:48 PM EDT 05/21/2024 12:00 AM EDT us Marybel D Daniela AUTOMOTIVE PORTER LAB BLOOD ORDERABLES Fin al Result [facility] [address] [place] [address] * (ABNORMAL) Manual Differential (05/20/2024 11:48 PM EDT) Blasts % 0 % LAB HEMATOLOGY METHOD 05/21/2024 1:20 AM EDT [facility] Promyelocytes % 0 % LAB HEMATOLOGY METHOD 05/21/2024 1:20 AM EDT [facility] Myelocytes % 4 % LAB HEMATOLOGY METHOD 05/21/2024 1:20 AM EDT [facility] Metamyelocytes % 0 % LAB HEMATOLOGY METHOD 05/21/2024 1:20 AM EDT [facility] Neutrophils % 59 % LAB HEMATOLOGY METHOD 05/21/2024 1:20 AM EDT [facility] Lymphocytes % 20 % LAB HEMATOLOGY METHOD 05/21/2024 1:20 AM EDT [facility] Reactive Lymphocytes % 1 % LAB HEMATOLOGY METHOD 05/21/2024 1:20 AM EDT [facility] Monocytes % 13 % LAB HEMATOLOGY METHOD 05/21/2024 1:20 AM EDT [facility] Eosinophils % 2 % LAB HEMATOLOGY METHOD 05/21/2024 1:20 AM EDT [facility] Basophils % 1 % LAB HEMATOLOGY METHOD 05/21/2024 1:20 AM EDT [facility] Blasts Absolute 0.00 10*3/UL LAB HEMATOLOGY METHOD 05/21/2024 1:20 AM EDT [facility] Promyelocytes Absolute 0.00 10*3/uL LAB HEMATOLOGY METHOD 05/21/2024 1:20 AM EDT [facility] Myelocytes Absolute 0.52 10*3/uL LAB HEMATOLOGY METHOD 05/21/2024 1:20 AM EDT [facility] Metamyelocytes Absolute 0.00 10*3/uL LAB HEMATOLOGY METHOD 05/21/2024 1:20 AM EDT [facility] Neutrophils Absolute 7.60(H) 1.60 - 6.10 10*3/uL LAB HEMATOLOGY METHOD 05/21/2024 1:20 AM EDT [facility] Lymphocytes Absolute 2.58 1.20 - 3.90 10*3/uL LAB HEMATOLOGY METHOD 05/21/2024 1:20 AM EDT [facility] Reactive Lymphocytes Absolute 0.13 10*3/uL LAB HEMATOLOGY METHOD 05/21/2024 1:20 AM EDT [facility] Monocytes Absolute 1.67(H) 0.30 - 0.90 10*3/uL LAB HEMATOLOGY METHOD 05/21/2024 1:20 AM EDT [facility] Eosinophils Absolute 0.26 0.00 - 0.50 10*3/uL LAB HEMATOLOGY METHOD 05/21/2024 1:20 AM EDT [facility] Basophils Absolute 0.13(H) 0.00 - 0.10 10*3/uL LAB HEMATOLOGY METHOD 05/21/2024 1:20 AM EDT [facility] Blood Venous blood specimen / Unknown Venipuncture / Unknown 05/20/2024 11:48 PM EDT 05/21/2024 12:00 AM EDT us Marybel Suarez APRN LAB BLOOD ORDERABLES Fin al Result [facility] [address] [place] [address] * Magnesium (05/20/2024 11:48 PM EDT) Magnesium, Plasma 2.3 1.9 - 2.4 mg/dL 05/21/2024 12:30 AM EDT [facility] Blood Venous blood specimen / Unknown Venipuncture / Unknown 05/20/2024 11:48 PM EDT 05/21/2024 12:00 AM EDT us Lauren Noguera [employer]OM[employer]TER, PAINTER SHIPYARD, DNP LAB BLOOD ORDERABL ES Final Result [facility] [address] [place] [address] * (ABNORMAL) Renal Function Panel, Plasma (05/20/2024 11:48 PM EDT) Glucose, Plasma 141(H) 74 - 99 mg/dL 05/21/2024 12:30 AM EDT [facility] BUN, Plasma 12 7 - 21 mg/dL 05/21/2024 12:30 AM EDT [facility] Creatinine, Plasma 0.76 0.60 - 1.10 mg/dL 05/21/2024 12:30 AM EDT [facility] BUN/Creatinine Ratio 16 05/21/2024 12:30 AM EDT [facility] Sodium, Plasma 141 136 - 145 mmol/L 05/21/2024 12:30 AM EDT [facility] Potassium, Plasma 3.5(L) 3.6 - 4.9 mmol/L 05/21/2024 12:30 AM EDT [facility] Chloride, Plasma 110(H) 97 - 107 mmol/L 05/21/2024 12:30 AM EDT [facility] CO2, Plasma 23 22 - 29 mmol/L 05/21/2024 12:30 AM EDT [facility] Anion Gap 8 6 - 16 mmol/L 05/21/2024 12:30 AM EDT [facility] Total Calcium, Plasma 7.4(L) 8.9 - 10.2 mg/dL 05/21/2024 12:30 AM EDT [facility] Phosphorus, Plasma 3.1 2.5 - 4.5 mg/dL 05/21/2024 12:30 AM EDT [facility] Albumin, Plasma 2.0(L) 3.5 - 5.2 g/dL 05/21/2024 12:30 AM EDT [facility] eGFRcr 93.3 mL/min/1.7 3m*2 05/21/2024 12:30 AM EDT [facility] Comment:Reported eGFRcr in m L/min/1.73m2 is based the CKD-EPI 2020 equation that does not use a race coefficient. Blood Venous blood specimen / Unknown Venipuncture / Unknown 05/20/2024 11:48 PM EDT 05/21/2024 12:00 AM EDT us Lauren Noguera [employer]OMOT[employer]ORTER, PAINTER SHIPYARD, DNP LAB BLOOD ORDERABL ES Final Result [facility] [address] [place] [address] * (ABNORMAL) CBC and Differential (05/20/2024 11:48 PM EDT) WBC Count 12.88(H) 3.70 - 10.30 10*3/uL LAB HEMATOLOGY METHOD 05/21/2024 1:20 AM EDT [facility] RBC Count 3.29(L) 3.90 - 5.20 10*6/uL LAB HEMATOLOGY METHOD 05/21/2024 1:20 AM EDT [facility] HGB 9.6(L) 11.2 - 15.7 g/dL LAB HEMATOLOGY METHOD 05/21/2024 1:20 AM EDT [facility] HCT 29.5(L) 34.0 - 45.0 % LAB HEMATOLOGY METHOD 05/21/2024 1:20 AM EDT [facility] Platelet Count 605(H) 155 - 369 10*3/uL LAB HEMATOLOGY METHOD 05/21/2024 1:20 AM EDT [facility] MCV 90 79 - 98 fL LAB HEMATOLOGY METHOD 05/21/2024 1:20 AM EDT [facility] MCH 29.2 26.0 - 32.0 pg LAB HEMATOLOGY METHOD 05/21/2024 1:20 AM EDT [facility] MCHC 32.5 30.7 - 35.5 g/dL LAB HEMATOLOGY METHOD 05/21/2024 1:20 AM EDT [facility] RDW 15.7(H) 11.5 - 14.5 % LAB HEMATOLOGY METHOD 05/21/2024 1:20 AM EDT [facility] MPV 9.7 8.8 - 12.5 fL LAB HEMATOLOGY METHOD 05/21/2024 1:20 AM EDT [facility] nRBC 0.2(H) <=0.0 per 100 WBCs LAB HEMATOLOGY METHOD 05/21/2024 1:20 AM EDT [facility] Differential Type Manual LAB HEMATOLOGY METHOD 05/21/2024 1:20 AM EDT [facility] Blood Venous blood specimen / Unknown Venipuncture / Unknown 05/20/2024 11:48 PM EDT 05/21/2024 12:00 AM EDT Narrative [facility] - 05/21/2024 1:20 AM EDT Therapeutic decision making should be based on absolute values, rather than percentages. The previously reported component Neutrophils % is no longer being reported.The previously reported component Lymphocytes % is no longer being reported.The previously reported component Monocytes % is no longer being reported.The previously reported component Eosinophils % is no longer being reported.The previously reported component Basophils % is no longer being reported.The previously reported component Immature Granulocytes % is no longer being reported.The previously reported component Absolute Neutrophils is no longer being reported.The previously reported component Absolute Lymphocytes is no longer being reported.The previously reported component Absolute Monocytes is no longer being reported.The previously reported component Absolute Eosinophils is no longer being reported.The previously reported component Absolute Basophils is no longer being reported.The previously reported component Absolute Immature Granulocytes is no longer being reported. Marybel Suarez APRN LAB BLOOD ORDERABLES [facility] al Result [facility] [address] [place] [address] * (ABNORMAL) Comprehensive metabolic panel (05/20/2024 11:48 PM EDT) Pathologist [facility] Glucose, Plasma 141(H) 74 - 99 mg/dL 05/21/2024 12:30 AM EDT [facility] BUN, Plasma 12 7 - 21 mg/dL 05/21/2024 12:30 AM EDT [facility] Creatinine, Plasma 0.76 0.60 - 1.10 mg/dL 05/21/2024 12:30 AM EDT [facility] BUN/Creatinine Ratio 16 05/21/2024 12:30 AM EDT [facility] Sodium, Plasma 141 136 - 145 mmol/L 05/21/2024 12:30 AM EDT [facility] Potassium, Plasma 3.5(L) 3.6 - 4.9 mmol/L 05/21/2024 12:30 AM EDT [facility] Chloride, Plasma 110(H) 97 - 107 mmol/L 05/21/2024 12:30 AM EDT [facility] CO2, Plasma 23 22 - 29 mmol/L 05/21/2024 12:30 AM EDT [facility] Anion Gap 8 6 - 16 mmol/L 05/21/2024 12:30 AM EDT [facility] Total Calcium, Plasma 7.4(L) 8.9 - 10.2 mg/dL 05/21/2024 12:30 AM EDT [facility] Total Protein 5.7(L) 6.3 - 7.9 g/dL 05/21/2024 12:30 AM EDT [facility] Albumin, Plasma 2.0(L) 3.5 - 5.2 g/dL 05/21/2024 12:30 AM EDT [facility] AST, Plasma 39(H) 10 - 35 U/L 05/21/2024 12:30 AM EDT [facility] ALT, Plasma 22 10 - 35 U/L 05/21/2024 12:30 AM EDT [facility] Alkaline Phosphatase, Plasma 120(H) 35 - 104 U/L 05/21/2024 12:30 AM EDT [facility] Total Bilirubin, Plasma 0.7 0.2 - 1.1 mg/dL 05/21/2024 12:30 AM EDT [facility] eGFRcr 93.3 mL/min/1.7 3m*2 05/21/2024 12:30 AM EDT [facility] Comment:Reported eGFRcr in m L/min/1.73m2 is based the CKD-EPI 2020 equation that does not use a race coefficient. Blood Venous blood specimen / Unknown Venipuncture / Unknown 05/20/2024 11:48 PM EDT 05/21/2024 12:00 AM EDT Marybel Suarez APRN LAB BLOOD ORDERABLES Fin al Result [facility] [address] [place] [address] * (ABNORMAL) POCT glucose meter (05/20/2024 11:47 PM EDT) Pathologist [facility] POCT Glucose 139(H) 74 - 99 mg/dL 05/20/2024 11:57 PM EDT [facility] Comment:Accuracy of a glucos e result obtained from a capillary whole blood specimen relies upon adequate, non-compromised capillary blood flow. If the capillary glucose result is not consistent with the patient's clinical signs and symptoms, glucose testing should be repeated with either an arterial or venous sample on the glucometer or sent to the main labortory for testing. Comment 05/20/2024 11:57 PM EDT [facility] Field Hockey Coach ID Cass Corrales 05/20/2024 11:57 PM EDT [facility] Device ID [id number] 05/20/2024 11:57 PM EDT [facility] Specimen Type POC Arterial 05/20/2024 11:57 PM EDT [facility] Blood Arterial blood specimen / Unknown 05/20/2024 11:47 PM EDT 05/20/2024 11:57 PM EDT us Maite Austin MD LAB POINT OF CARE TE ST DOCKED DEVICE UNSOLICITED RESULTS Final Result Performing Organization Address City/[facility]/ZIP Co de Phone Number [facility] [address] [place] [address] * (ABNORMAL) POCT glucose meter (05/20/2024 6:35 PM EDT) [facility] POCT Glucose 124(H) 74 - 99 mg/dL 05/20/2024 6:37 PM EDT [facility] Comment:Accuracy of a glucos e result obtained from a capillary whole blood specimen relies upon adequate, non-compromised capillary blood flow. If the capillary glucose result is not consistent with the patient's clinical signs and symptoms, glucose testing should be repeated with either an arterial or venous sample on the glucometer or sent to the main labortory for testing. Comment 05/20/2024 6:37 PM EDT [facility] Field Hockey Coach ID Dina Casiano 05/20/2024 6:37 PM EDT [facility] Device ID [id number] 05/20/2024 6:37 PM EDT [facility] Specimen Type POC Arterial 05/20/2024 6:37 PM EDT [facility] Blood Arterial blood specimen / Unknown 05/20/2024 6:35 PM EDT 05/20/2024 6:37 PM EDT us Maite Austin MD LAB POINT OF CARE TE ST DOCKED DEVICE UNSOLICITED RESULTS Final Result [facility] [address] [place] [address] * Magnesium (05/20/2024 6:35 PM EDT) Magnesium, Plasma 2.2 1.9 - 2.4 mg/dL 05/20/2024 7:22 PM EDT [facility] Blood Venous blood specimen / Unknown Venipuncture / Unknown 05/20/2024 6:35 PM EDT 05/20/2024 6:49 PM EDT us Maite Austin MD LAB BLOOD ORDERABLES Final Resu lt [facility] [address] [place] [address] * (ABNORMAL) Renal function panel (05/20/2024 6:35 PM EDT) Glucose, Plasma 135(H) 74 - 99 mg/dL 05/20/2024 7:22 PM EDT [facility] BUN, Plasma 12 7 - 21 mg/dL 05/20/2024 7:22 PM EDT [facility] Creatinine, Plasma 0.78 0.60 - 1.10 mg/dL 05/20/2024 7:22 PM EDT [facility] BUN/Creatinine Ratio 15 05/20/2024 7:22 PM EDT [facility] Sodium, Plasma 139 136 - 145 mmol/L 05/20/2024 7:22 PM EDT [facility] Potassium, Plasma 3.3(L) 3.6 - 4.9 mmol/L 05/20/2024 7:22 PM EDT [facility] Chloride, Plasma 107 97 - 107 mmol/L 05/20/2024 7:22 PM EDT [facility] CO2, Plasma 21(L) 22 - 29 mmol/L 05/20/2024 7:22 PM EDT [facility] Anion Gap 11 6 - 16 mmol/L 05/20/2024 7:22 PM EDT [facility] Total Calcium, Plasma 7.5(L) 8.9 - 10.2 mg/dL 05/20/2024 7:22 PM EDT [facility] Phosphorus, Plasma 2.1(L) 2.5 - 4.5 mg/dL 05/20/2024 7:22 PM EDT [facility] Albumin, Plasma 2.2(L) 3.5 - 5.2 g/dL 05/20/2024 7:22 PM EDT [facility] eGFRcr 90.4 mL/min/1.7 3m*2 05/20/2024 7:22 PM EDT [facility] Comment:Reported eGFRcr in m L/min/1.73m2 is based the CKD-EPI 2020 equation that does not use a race coefficient. Blood Venous blood specimen / Unknown Venipuncture / Unknown 05/20/2024 6:35 PM EDT 05/20/2024 6:49 PM EDT us Maite Austin MD LAB BLOOD ORDERABLES Final Resu lt [facility] [address] [place] [address] * [place] [facility], E/M 30-74 MINUTES (05/20/2024 1:19 PM EDT) Narrative Dieudonne Cramer MD - 05/20/2024 1:19 PM EDT Dieudonne Cramer MD 05/20/2024 5:15 PM Critical Care Performed by: Dieudonne Cramer MD Authorized by: Dieudonne Cramer MD Critical care provider statement: Critical care time (minutes): 38 Critical care time was exclusive of: Separately billable procedures and treating other patients and teaching time Critical care was time spent personally by me on the following activities: Development of treatment plan with patient or surrogate, ordering and performing treatments and interventions, discussions with consultants, ordering and review of laboratory studies, discussions with primary provider, ordering and review of radiographic studies, evaluation of patient's response to treatment and examination of patient Critical care statement: I saw and evaluated the patient with the resident/ fellow. I discussed the case with the resident/ fellow and agree with the findings and plan as documented. us Dieudonne Cramer MD IN CLINIC/BEDSIDE ORDERABLES Final Result * (ABNORMAL) POCT glucose meter (05/20/2024 12:39 PM EDT) POCT Glucose 131(H) 74 - 99 mg/dL 05/20/2024 12:40 PM EDT [facility] Comment:Accuracy of a glucos e result obtained from a capillary whole blood specimen relies upon adequate, non-compromised capillary blood flow. If the capillary glucose result is not consistent with the patient's clinical signs and symptoms, glucose testing should be repeated with either an arterial or venous sample on the glucometer or sent to the main labortory for testing. Comment 05/20/2024 12:40 PM EDT [facility] Field Hockey Coach ID Dina Casiano 05/20/2024 12:40 PM EDT [facility] Device ID [id number] 05/20/2024 12:40 PM EDT [facility] Specimen Type POC Arterial 05/20/2024 12:40 PM EDT [facility] Blood Arterial blood specimen / Unknown 05/20/2024 12:39 PM EDT 05/20/2024 12:40 PM EDT us Maite Austin MD LAB POINT OF CARE TE ST DOCKED DEVICE UNSOLICITED RESULTS Final Result Performing Organization Address City/State/[facility] Co de Phone Number [facility] [address] [place] [address] * CT Abdomen Pelvis wo IV Contrast (05/20/2024 6:02 AM EDT) Anatomical Region Laterality Modality Abdomen, Pelvis Computed Tomogra phy Impressions 05/20/2024 3:52 PM EDT When compared to CT from 2 days prior, * Slight decrease in size of the fluid collection along the undersurface of the proximal greater gastric curvature. There is now oral contrast within the collection, probably from a patent but tortuous microperforation of the inflamed colonic splenic flexure. * Slightly increased small to moderate left pleural effusion. Similar tiny right pleural effusion. CRITICAL RESULT: No. COMMUNICATION: Per this written report. By electronically signing this report, I, the attending physician, attest that I have personally reviewed the images/data for the above examination(s) and agree with the final edited report. Drafted by GER Moctezuma on 05/20/2024 1:23 PM Final report signed by Khari Bray MD on 05/20/2024 3:52 PM Narrative 05/20/2024 3:52 PM EDT CLINICAL INDICATION: Sepsis TECHNIQUE: Multiple axial CT images were obtained from lung bases through pubic symphysis without the administration of IV contrast. Reformatted images in the coronal and sagittal planes were generated from the axial data set to facilitate diagnostic accuracy. Total DLP (Dose-Length Product): 597.80 mGy.cm. Please note: The reported value represents the total of one or more individual components during the CT acquisition on this date and at this time, and as such, the same value may appear in more than one CT report depending on the interpreting/reporting physicians. COMPARISON: CT abdomen and pelvis 05/18/2024 Fluoroscopic upper GI 05/18/2024 FINDINGS: Lower Chest: Slightly increased small to moderate left pleural effusion. Unchanged tiny right pleural effusion. Subjacent atelectasis and multifocal peribronchial airspace opacities are grossly similar to 2 days prior. Analysis of the abdominopelvic viscera is limited by the absence of intravenous contrast material. Solid Abdominal Organs: Unremarkable noncontrast appearance of the liver, biliary tree postcholecystectomy, and kidneys. Similar nonspecific mild nodular thickening of the adrenal glands which is likely benign/hyperplastic. There is some unchanged stranding about the pancreatic body and tail which is likely a function of generalized left upper quadrant stranding. This confounds evaluation but there is no definite evidence of acute pancreatitis or other suspicious focal pancreatic findings on this noncontrast CT. GI Tract/Mesentery/Peritoneum: The enteric tube terminates within the mid stomach. Slightly decreased size of the fluid collection posterior inferior to the proximal stomach containing mild amount of nondependent gas. The collection roughly measures 5 x 2 cm in maximum axial dimension on 3:84 and 15 mm in sagittal short axis width, slightly decreased from 5 x 2.4 cm in axial dimension and 21 mm in sagittal width previously. There is now contrast within this collection when compared to CT from 2 days prior. There is similar surrounding fat stranding within the gastrosplenic ligament and left lesser sac. There is similar wall edema of the adjacent gastric wall. There is dense contrast throughout the colon that is probably residual from the fluoroscopic upper GI performed yesterday with no definite gastric leak was identified. Although better noted on CT from 2 days prior, there is persistent diffuse wall thickening of the pelvic small bowel and descending as well as rectosigmoid colonic segments, including the splenic flexure. On comparing with the comparison CT from 2 days prior, there was relatively poor enhancement of the superior wall of the splenic flexure (series 3 image 222 of that study). In conjunction with the prior studies, even though the collection has much broader contact with the inflamed gastric wall, it is probably a result of a small colonic perforation from the splenic flexure. Similar mild colonic ileus. No intervally new new organized pancreatic fluid collections or significant free inflammatory ascites to suggest disseminated peritonitis. Pelvic Viscera: Status post hysterectomy. Decompressed urinary bladder with De Los Santos's catheter. No suspicious pelvic mass lesions. Lymph Nodes/Vasculature: No suspicious new or enlarging adenopathy. Few presumed reactive mildly enlarged upper abdominal lymph nodes are unchanged. Similar moderate aortoiliac calcific atherosclerosis with infrarenal ectasia. Free Fluid: Unchanged mild ascites. Musculoskeletal and Body Wall: No interval acute or aggressive findings. Procedure Note Khari Bray MD - 05/20/2024 CLINICAL INDICATION: Sepsis TECHNIQUE: Multiple axial CT images were obtained from lung bases through pubicsymphysis without the administration of IV contrast. Reformatted images inthe coronal and sagittal planes were generated from the axial data set tofacilitate diagnostic accuracy. Total DLP (Dose-Length Product): 597.80 mGy.cm. Please note: The reportedvalue represents the total of one or more individual components during theCT acquisition on this date and at this time, and as such, the same valuemay appear in more than one CT report depending on theinterpreting/reporting physicians. COMPARISON: CT abdomen and pelvis 05/18/2024 Fluoroscopic upper GI 05/18/2024 FINDINGS: Lower Chest: Slightly increased small to moderate left pleural effusion.Unchanged tiny right pleural effusion. Subjacent atelectasis andmultifocal peribronchial airspace opacities are grossly similar to 2 daysprior. Analysis of the abdominopelvic viscera is limited by the absence ofintravenous contrast material. Solid Abdominal Organs: Unremarkable noncontrast appearance of the liver,biliary tree postcholecystectomy, and kidneys. Similar nonspecific mildnodular thickening of the adrenal glands which is likelybenign/hyperplastic. There is some unchanged stranding about thepancreatic body and tail which is likely a function of generalized leftupper quadrant stranding. This confounds evaluation but there is nodefinite evidence of acute pancreatitis or other suspicious focalpancreatic findings on this noncontrast CT. GI Tract/Mesentery/Peritoneum: The enteric tube terminates within the midstomach. Slightly decreased size of the fluid collection posteriorinferior to the proximal stomach containing mild amount of nondependentgas. The collection roughly measures 5 x 2 cm in maximum axial dimensionon 3:84 and 15 mm in sagittal short axis width, slightly decreased from 5x 2.4 cm in axial dimension and 21 mm in sagittal width previously. Thereis now contrast within this collection when compared to CT from 2 daysprior. There is similar surrounding fat stranding within the gastrosplenicligament and left lesser sac. There is similar wall edema of the adjacentgastric wall. There is dense contrast throughout the colon that isprobably residual from the fluoroscopic upper GI performed yesterday withno definite gastric leak was identified. Although better noted on CT from2 days prior, there is persistent diffuse wall thickening of the pelvicsmall bowel and descending as well as rectosigmoid colonic segments, including the splenic flexure. On comparing with the comparisonCT from 2 days prior, there was relatively poor enhancement of thesuperior wall of the splenic flexure (series 3 image 222 of that study).In conjunction with the prior studies, even though the collection has muchbroader contact with the inflamed gastric wall, it is probably a result ofa small colonic perforation from the splenic flexure. Similar mild colonicileus. No intervally new new organized pancreatic fluid collections orsignificant free inflammatory ascites to suggest disseminatedperitonitis. Pelvic Viscera: Status post hysterectomy. Decompressed urinary bladderwith De Los Santos's catheter. No suspicious pelvic mass lesions. Lymph Nodes/Vasculature: No suspicious new or enlarging adenopathy. Fewpresumed reactive mildly enlarged upper abdominal lymph nodes areunchanged. Similar moderate aortoiliac calcific atherosclerosis withinfrarenal ectasia. Free Fluid: Unchanged mild ascites. Musculoskeletal and Body Wall: No interval acute or aggressive findings. IMPRESSION: When compared to CT from 2 days prior, *Slight decrease in size of the fluid collection along the undersurfaceof the proximal greater gastric curvature. There is now oral contrastwithin the collection, probably from a patent but tortuousmicroperforation of the inflamed colonic splenic flexure. *Slightly increased small to moderate left pleural effusion. Similar tinyright pleural effusion. CRITICAL RESULT: No. COMMUNICATION: Per this written report. By electronically signing this report, I, the attending physician, abbiat I have personally reviewed the images/data for the aboveexamination(s) and agree with the final edited report. Drafted by GER Moctezuma on 05/20/2024 1:23 PM Final report signed by Khari Bray MD on 05/20/2024 3:52 PM us Maite Austin MD IMG CT PROCEDURES Final Result * (ABNORMAL) Blood gas panel, arterial (05/20/2024 2:16 AM EDT) pH, Arterial 7.41 7.35 - 7.45 LAB HEMATOLOGY METHOD 05/20/2024 2:25 AM EDT [facility] pCO2, Arterial 36 35 - 48 mmHg LAB HEMATOLOGY METHOD 05/20/2024 2:25 AM EDT [facility] pO2, Arterial 102 83 - 108 mmHg LAB HEMATOLOGY METHOD 05/20/2024 2:25 AM EDT [facility] SO2, Measured, Arterial 97 94 - 98 % LAB HEMATOLOGY METHOD 05/20/2024 2:25 AM EDT [facility] Base Excess, Arterial -1.7 -2.0 - 3.0 mmol/L LAB HEMATOLOGY METHOD 05/20/2024 2:25 AM EDT [facility] Bicarbonate, Calculated, Arterial 23 22 - 26 mmol/L LAB HEMATOLOGY METHOD 05/20/2024 2:25 AM EDT [facility] Hematocrit, Whole Blood 27.0(L) 34.0 - 45.0 % LAB HEMATOLOGY METHOD 05/20/2024 2:25 AM EDT [facility] Sodium, Whole Blood 141 136 - 145 mmol/L LAB HEMATOLOGY METHOD 05/20/2024 2:25 AM EDT [facility] Potassium, Whole Blood 3.6 3.6 - 4.9 mmol/L LAB HEMATOLOGY METHOD 05/20/2024 2:25 AM EDT [facility] Chloride, Whole Blood 112(H) 97 - 107 mmol/L LAB HEMATOLOGY METHOD 05/20/2024 2:25 AM EDT [facility] Glucose, Whole Blood 120(H) 74 - 99 mg/dL LAB HEMATOLOGY METHOD 05/20/2024 2:25 AM EDT [facility] Ionized Calcium, Whole Blood 4.1(L) 4.6 - 5.1 mg/dL LAB HEMATOLOGY METHOD 05/20/2024 2:25 AM EDT [facility] Lactate, Arterial, Whole Blood 1.0 0.5 - 1.6 mmol/L LAB HEMATOLOGY METHOD 05/20/2024 2:25 AM EDT [facility] Blood Arterial blood specimen / Unknown Arterial Puncture / Unknown 05/20/2024 2:16 AM EDT 05/20/2024 2:23 AM EDT us Marybel Suarez APRN LAB BLOOD ORDERABLES Fin al Result Performing Organization Address City/[facility]/ZIP Co de Phone Number [facility] [address] [place] [address] * Phosphorus (05/20/2024 2:15 AM EDT) Phosphorus, Plasma 3.2 2.5 - 4.5 mg/dL 05/20/2024 1:41 PM EDT [facility] Blood Venous blood specimen / Unknown Venipuncture / Unknown 05/20/2024 2:15 AM EDT 05/20/2024 2:21 AM EDT us Maite Austin MD LAB BLOOD ORDERABLES Final Resu lt [facility] [address] [place] [address] * (ABNORMAL) CBC and Differential (05/20/2024 2:15 AM EDT) WBC Count 12.37(H) 3.70 - 10.30 10*3/uL LAB HEMATOLOGY METHOD 05/20/2024 3:19 AM EDT [facility] RBC Count 3.13(L) 3.90 - 5.20 10*6/uL LAB HEMATOLOGY METHOD 05/20/2024 3:19 AM EDT [facility] HGB 9.1(L) 11.2 - 15.7 g/dL LAB HEMATOLOGY METHOD 05/20/2024 3:19 AM EDT [facility] HCT 28.3(L) 34.0 - 45.0 % LAB HEMATOLOGY METHOD 05/20/2024 3:19 AM EDT [facility] Platelet Count 632(H) 155 - 369 10*3/uL LAB HEMATOLOGY METHOD 05/20/2024 3:19 AM EDT [facility] MCV 90 79 - 98 fL LAB HEMATOLOGY METHOD 05/20/2024 3:19 AM EDT [facility] MCH 29.1 26.0 - 32.0 pg LAB HEMATOLOGY METHOD 05/20/2024 3:19 AM EDT [facility] MCHC 32.2 30.7 - 35.5 g/dL LAB HEMATOLOGY METHOD 05/20/2024 3:19 AM EDT [facility] RDW 16.3(H) 11.5 - 14.5 % LAB HEMATOLOGY METHOD 05/20/2024 3:19 AM EDT [facility] MPV 9.8 8.8 - 12.5 fL LAB HEMATOLOGY METHOD 05/20/2024 3:19 AM EDT [facility] nRBC 0.0 <=0.0 per 100 WBCs LAB HEMATOLOGY METHOD 05/20/2024 3:19 AM EDT [facility] Differential Type Automated LAB HEMATOLOGY METHOD 05/20/2024 3:19 AM EDT [facility] Neutrophils % 64 % LAB HEMATOLOGY METHOD 05/20/2024 3:19 AM EDT [facility] Lymphocytes % 18 % LAB HEMATOLOGY METHOD 05/20/2024 3:19 AM EDT [facility] Monocytes % 11 % LAB HEMATOLOGY METHOD 05/20/2024 3:19 AM EDT [facility] Eosinophils % 3 % LAB HEMATOLOGY METHOD 05/20/2024 3:19 AM EDT [facility] Basophils % 1 % LAB HEMATOLOGY METHOD 05/20/2024 3:19 AM EDT [facility] Immature Granulocytes % 3 % LAB HEMATOLOGY METHOD 05/20/2024 3:19 AM EDT [facility] Neutrophils Absolute 7.92(H) 1.60 - 6.10 10*3/uL LAB HEMATOLOGY METHOD 05/20/2024 3:19 AM EDT [facility] Lymphocytes Absolute 2.27 1.20 - 3.90 10*3/uL LAB HEMATOLOGY METHOD 05/20/2024 3:19 AM EDT [facility] Monocytes Absolute 1.36(H) 0.30 - 0.90 10*3/uL LAB HEMATOLOGY METHOD 05/20/2024 3:19 AM EDT [facility] Eosinophils Absolute 0.37 0.00 - 0.50 10*3/uL LAB HEMATOLOGY METHOD 05/20/2024 3:19 AM EDT [facility] Basophils Absolute 0.10 0.00 - 0.10 10*3/uL LAB HEMATOLOGY METHOD 05/20/2024 3:19 AM EDT [facility] Immature Granulocytes Absolute 0.35(H) 0.00 - 0.06 10*3/uL LAB HEMATOLOGY METHOD 05/20/2024 3:19 AM EDT [facility] Blood Venous blood specimen / Unknown Venipuncture / Unknown 05/20/2024 2:15 AM EDT 05/20/2024 2:21 AM EDT Narrative [facility] - 05/20/2024 3:19 AM EDT Therapeutic decision making should be based on absolute values, rather than percentages. Marybel Joelle [employer] LAB BLOOD ORDERABLES Fin al Result Performing Organization Address City/State/[facility] Co de Phone Number [facility] [address] [place] [address] * (ABNORMAL) Magnesium, Plasma (05/20/2024 2:15 AM EDT) Magnesium, Plasma 2.7(H) 1.9 - 2.4 mg/dL 05/20/2024 2:51 AM EDT [facility] Blood Venous blood specimen / Unknown Venipuncture / Unknown 05/20/2024 2:15 AM EDT 05/20/2024 2:21 AM EDT Marybel D Daniela [employer] LAB BLOOD ORDERABLES Fin al Result [facility] [address] [place] [address] * (ABNORMAL) Comprehensive metabolic panel (05/20/2024 2:15 AM EDT) Glucose, Plasma 127(H) 74 - 99 mg/dL 05/20/2024 2:51 AM EDT [facility] BUN, Plasma 11 7 - 21 mg/dL 05/20/2024 2:51 AM EDT [facility] Creatinine, Plasma 0.78 0.60 - 1.10 mg/dL 05/20/2024 2:51 AM EDT [facility] BUN/Creatinine Ratio 14 05/20/2024 2:51 AM EDT [facility] Sodium, Plasma 141 136 - 145 mmol/L 05/20/2024 2:51 AM EDT [facility] Potassium, Plasma 3.9 3.6 - 4.9 mmol/L 05/20/2024 2:51 AM EDT [facility] Chloride, Plasma 112(H) 97 - 107 mmol/L 05/20/2024 2:51 AM EDT [facility] CO2, Plasma 21(L) 22 - 29 mmol/L 05/20/2024 2:51 AM EDT [facility] Anion Gap 8 6 - 16 mmol/L 05/20/2024 2:51 AM EDT [facility] Total Calcium, Plasma 7.0(L) 8.9 - 10.2 mg/dL 05/20/2024 2:51 AM EDT [facility] Total Protein 5.5(L) 6.3 - 7.9 g/dL 05/20/2024 2:51 AM EDT [facility] Albumin, Plasma 2.0(L) 3.5 - 5.2 g/dL 05/20/2024 2:51 AM EDT [facility] AST, Plasma 53(H) 10 - 35 U/L 05/20/2024 2:51 AM EDT [facility] ALT, Plasma 20 10 - 35 U/L 05/20/2024 2:51 AM EDT [facility] Alkaline Phosphatase, Plasma 117(H) 35 - 104 U/L 05/20/2024 2:51 AM EDT [facility] Total Bilirubin, Plasma 0.7 0.2 - 1.1 mg/dL 05/20/2024 2:51 AM EDT [facility] eGFRcr 90.4 mL/min/1.7 3m*2 05/20/2024 2:51 AM EDT [facility] Comment:Reported eGFRcr in m L/min/1.73m2 is based the CKD-EPI 2020 equation that does not use a race coefficient. Blood Venous blood specimen / Unknown Venipuncture / Unknown 05/20/2024 2:15 AM EDT 05/20/2024 2:21 AM EDT [facility] LAB BLOOD ORDERABLES Fin al Result Performing Organization Address [facility] Co de Phone Number [facility] [address] [place] [address] * (ABNORMAL) Lipase (05/20/2024 2:15 AM EDT) Lipase, Plasma 84(H) 19 - 63 U/L 05/20/2024 2:51 AM EDT [facility] Blood Venous blood specimen / Unknown Venipuncture / Unknown 05/20/2024 2:15 AM EDT 05/20/2024 2:21 AM EDT [facility] Daniela [employer] LAB BLOOD ORDERABLES Fin al Result Performing Organization Address [facility] Co de Phone Number [facility] [address] [place] [address] * XR Chest 1 View (05/20/2024 1:23 AM EDT) Anatomical Region Laterality Modality Chest Digital Radiogra phy Impressions 05/20/2024 9:18 AM EDT No significant interval change. CRITICAL RESULT: No. COMMUNICATION: Per this written report. By electronically signing this report, I, the attending physician, attest that I have personally reviewed the images/data for the above examination(s) and agree with the final edited report. Drafted by Db Rodríguez MD on 05/20/2024 8:39 AM Final report signed by Edson Ambrose MD on 05/20/2024 9:18 AM Narrative 05/20/2024 9:18 AM EDT CLINICAL INDICATION: CABG post -op TECHNIQUE: XR CHEST 1 VIEW COMPARISON: Chest radiograph from 05/19/2024 FINDINGS: Unchanged positioning of the left upper extremity PICC. Sternotomy wires appear intact. An enteric tube projecting within the proximal stomach with side port below the diaphragm. Mediastinal and cardiac contours are stable. Similar degree of left lung predominant multifocal opacities. No pleural effusion or pneumothorax. Procedure Note Edson Ambrose MD - 05/20/2024 CLINICAL INDICATION: CABG post -op TECHNIQUE: XR CHEST 1 VIEW COMPARISON: Chest radiograph from 05/19/2024 FINDINGS: Unchanged positioning of the left upper extremity PICC. Sternotomy wiresappear intact. An enteric tube projecting within the proximal stomach withside port below the diaphragm. Mediastinal and cardiac contours arestable. Similar degree of left lung predominant multifocal opacities. Nopleural effusion or pneumothorax. IMPRESSION: No significant interval change. CRITICAL RESULT: No. COMMUNICATION: Per this written report. By electronically signing this report, I, the attending physician, attestthat I have personally reviewed the images/data for the aboveexamination(s) and agree with the final edited report. Drafted by Db Rodríguez MD on 05/20/2024 8:39 AM Final report signed by Edson Ambrose MD on 05/20/2024 9:18 AM Maite Austin MD IMG XR PROCEDURES Final Result * (ABNORMAL) POCT glucose meter (05/19/2024 11:30 PM EDT) POCT Glucose 133(H) 74 - 99 mg/dL 05/19/2024 11:31 PM EDT [facility] Comment:Accuracy of a glucos e result obtained from a capillary whole blood specimen relies upon adequate, non-compromised capillary blood flow. If the capillary glucose result is not consistent with the patient's clinical signs and symptoms, glucose testing should be repeated with either an arterial or venous sample on the glucometer or sent to the main labortory for testing. Comment 05/19/2024 11:31 PM EDT [facility] Field Hockey Coach ID AkhmedovEfren 05/20/19 11:31 PM EDT [facility] Device ID [id number] 05/19/2024 11:31 PM EDT [facility] Specimen Type POC Capillary 05/19/2024 11:31 PM EDT [facility] Blood Capillary blood specimen / Unknown 05/19/2024 11:30 PM EDT 05/19/2024 11:31 PM EDT Maite Austin MD LAB POINT OF CARE TE ST DOCKED DEVICE UNSOLICITED RESULTS Final Result Performing Organization Address City/[facility]/ZIP Co de Phone Number [facility] [address] [place] [address] * (ABNORMAL) Magnesium (05/19/2024 6:32 PM EDT) Magnesium, Plasma 1.8(L) 1.9 - 2.4 mg/dL 05/19/2024 7:12 PM EDT [facility] Blood Venous blood specimen / Unknown Venipuncture / Unknown 05/19/2024 6:32 PM EDT 05/19/2024 6:46 PM EDT us Maite Austin MD LAB BLOOD ORDERABLES Final Resu lt [facility] [address] [place] [address] * (ABNORMAL) Renal function panel (05/19/2024 6:32 PM EDT) Glucose, Plasma 103(H) 74 - 99 mg/dL 05/19/2024 7:12 PM EDT [facility] BUN, Plasma 10 7 - 21 mg/dL 05/19/2024 7:12 PM EDT [facility] Creatinine, Plasma 0.87 0.60 - 1.10 mg/dL 05/19/2024 7:12 PM EDT [facility] BUN/Creatinine Ratio 11 05/19/2024 7:12 PM EDT [facility] Sodium, Plasma 141 136 - 145 mmol/L 05/19/2024 7:12 PM EDT [facility] Potassium, Plasma 4.0 3.6 - 4.9 mmol/L 05/19/2024 7:12 PM EDT [facility] Chloride, Plasma 111(H) 97 - 107 mmol/L 05/19/2024 7:12 PM EDT [facility] CO2, Plasma 20(L) 22 - 29 mmol/L 05/19/2024 7:12 PM EDT [facility] Anion Gap 10 6 - 16 mmol/L 05/19/2024 7:12 PM EDT [facility] Total Calcium, Plasma 6.9(L) 8.9 - 10.2 mg/dL 05/19/2024 7:12 PM EDT [facility] Phosphorus, Plasma 2.8 2.5 - 4.5 mg/dL 05/19/2024 7:12 PM EDT [facility] Albumin, Plasma 2.1(L) 3.5 - 5.2 g/dL 05/19/2024 7:12 PM EDT [facility] eGFRcr 79.3 mL/min/1.7 3m*2 05/19/2024 7:12 PM EDT [facility] Comment:Reported eGFRcr in m L/min/1.73m2 is based the CKD-EPI 2020 equation that does not use a race coefficient. Blood Venous blood specimen / Unknown Venipuncture / Unknown 05/19/2024 6:32 PM EDT 05/19/2024 6:46 PM EDT us Maite Austin MD LAB BLOOD ORDERABLES Final Resu lt [facility] [address] [place] [address] * (ABNORMAL) POCT glucose meter (05/19/2024 6:31 PM EDT) Pathologist [facility] POCT Glucose 108(H) 74 - 99 mg/dL 05/19/2024 6:33 PM EDT [facility] Comment:Accuracy of a glucos e result obtained from a capillary whole blood specimen relies upon adequate, non-compromised capillary blood flow. If the capillary glucose result is not consistent with the patient's clinical signs and symptoms, glucose testing should be repeated with either an arterial or venous sample on the glucometer or sent to the main labortory for testing. Comment 05/19/2024 6:33 PM EDT [facility] Field Hockey Coach ID Dina Casiano 05/19/2024 6:33 PM EDT [facility] Device ID [id number] 05/19/2024 6:33 PM EDT [facility] Specimen Type POC Arterial 05/19/2024 6:33 PM EDT [facility] Blood Arterial blood specimen / Unknown 05/19/2024 6:31 PM EDT 05/19/2024 6:33 PM EDT us Maite Austin MD LAB POINT OF CARE TE ST DOCKED DEVICE UNSOLICITED RESULTS Final Result Performing Organization Address City/State/[facility] Co de Phone Number [facility] [address] [place] [address] * [place] [facility], E/M 30-74 MINUTES (05/19/2024 2:52 PM EDT) Narrative Dieudonne Cramer MD - 05/19/2024 2:52 PM EDT Dieudonne Cramer MD 05/23/2024 10:13 AM Critical Care Performed by: Dieudonne Cramer MD Authorized by: Dieudonne Cramer MD Critical care provider statement: Critical care time (minutes): 38 Critical care time was exclusive of: Separately billable procedures and treating other patients and teaching time Critical care was time spent personally by me on the following activities: Development of treatment plan with patient or surrogate, ordering and performing treatments and interventions, discussions with consultants, ordering and review of laboratory studies, discussions with primary provider, ordering and review of radiographic studies, evaluation of patient's response to treatment and examination of patient Critical care statement: I saw and evaluated the patient with the resident/ fellow. I discussed the case with the resident/ fellow and agree with the findings and plan as documented. us Dieudonne Cramer MD IN CLINIC/BEDSIDE ORDERABLES Final Result * (ABNORMAL) POCT glucose meter (05/19/2024 11:52 AM EDT) POCT Glucose 102(H) 74 - 99 mg/dL 05/19/2024 11:54 AM EDT [facility] Comment:Accuracy of a glucos e result obtained from a capillary whole blood specimen relies upon adequate, non-compromised capillary blood flow. If the capillary glucose result is not consistent with the patient's clinical signs and symptoms, glucose testing should be repeated with either an arterial or venous sample on the glucometer or sent to the main labortory for testing. Comment 05/19/2024 11:54 AM EDT [facility] Field Hockey Coach ID Dina Casiano 05/19/2024 11:54 AM EDT [facility] Device ID [id number] 05/19/2024 11:54 AM EDT [facility] Specimen Type POC Arterial 05/19/2024 11:54 AM EDT [facility] Blood Arterial blood specimen / Unknown 05/19/2024 11:52 AM EDT 05/19/2024 11:54 AM EDT us Maite Austin MD LAB POINT OF CARE TE ST DOCKED DEVICE UNSOLICITED RESULTS Final Result Performing Organization Address City/[facility] de Phone Number [facility] [address] [place] [address] * Triglycerides (05/19/2024 11:42 AM EDT) [facility] Triglycerides, Plasma 76 <150 mg/dL 05/19/2024 1:45 PM EDT [facility] Comment: Triglyceride Reference Range (age >17 years): Desirable: <150 mg/dL Borderline high: 150 to 199 mg/dL High: 200 to 499 mg/dL Very high: >499 mg/dL Increased risk of pancreatitis: >1000 mg/dL Fasting greater than or equal to 12 hours? Unknown 05/19/2024 1:45 PM EDT [facility] Blood Venous blood specimen / Unknown Venipuncture / Unknown 05/19/2024 11:42 AM EDT 05/19/2024 12:00 PM EDT us Maite Austin MD LAB BLOOD ORDERABLES Final Resu lt Performing Organization Address [facility]/ZIP Co de Phone Number [facility] [address] [place] [address] * (ABNORMAL) Magnesium, Plasma (05/19/2024 11:42 AM EDT) Magnesium, Plasma 1.8(L) 1.9 - 2.4 mg/dL 05/19/2024 12:33 PM EDT [facility] Blood Venous blood specimen / Unknown Venipuncture / Unknown 05/19/2024 11:42 AM EDT 05/19/2024 12:00 PM EDT Marybel Suarez APRN LAB BLOOD ORDERABLES Fin al Result [facility] [address] [place] [address] * (ABNORMAL) Renal Function Panel, Plasma (05/19/2024 11:42 AM EDT) Glucose, Plasma 106(H) 74 - 99 mg/dL 05/19/2024 12:33 PM EDT [facility] BUN, Plasma 10 7 - 21 mg/dL 05/19/2024 12:33 PM EDT [facility] Creatinine, Plasma 0.91 0.60 - 1.10 mg/dL 05/19/2024 12:33 PM EDT [facility] BUN/Creatinine Ratio 11 05/19/2024 12:33 PM EDT [facility] Sodium, Plasma 143 136 - 145 mmol/L 05/19/2024 12:33 PM EDT [facility] Potassium, Plasma 4.1 3.6 - 4.9 mmol/L 05/19/2024 12:33 PM EDT [facility] Chloride, Plasma 115(H) 97 - 107 mmol/L 05/19/2024 12:33 PM EDT [facility] CO2, Plasma 19(L) 22 - 29 mmol/L 05/19/2024 12:33 PM EDT [facility] Anion Gap 9 6 - 16 mmol/L 05/19/2024 12:33 PM EDT [facility] Total Calcium, Plasma 6.7(L) 8.9 - 10.2 mg/dL 05/19/2024 12:33 PM EDT [facility] Phosphorus, Plasma 3.0 2.5 - 4.5 mg/dL 05/19/2024 12:33 PM EDT [facility] Albumin, Plasma 2.0(L) 3.5 - 5.2 g/dL 05/19/2024 12:33 PM EDT [facility] eGFRcr 75.1 mL/min/1.7 3m*2 05/19/2024 12:33 PM EDT [facility] Comment:Reported eGFRcr in m L/min/1.73m2 is based the CKD-EPI 2020 equation that does not use a race coefficient. Blood Venous blood specimen / Unknown Venipuncture / Unknown 05/19/2024 11:42 AM EDT 05/19/2024 12:00 PM EDT Marybel Suarez APRN LAB BLOOD ORDERABLES Fin al Result [facility] [address] [place] [address] * XR Chest 1 View (05/19/2024 4:43 AM EDT) Anatomical Region Laterality Modality Chest Digital Radiogra phy Impressions 05/19/2024 10:16 AM EDT Interval placement of left PICC with tip overlying the mid right atrium. CRITICAL RESULT: No. COMMUNICATION: Per this written report. By electronically signing this report, I, the attending physician, attest that I have personally reviewed the images/data for the above examination(s) and agree with the final edited report. Drafted by Kendall Huffman MD on 05/19/2024 9:32 AM Final report signed by Edson Ambrose MD on 05/19/2024 10:16 AM Narrative 05/19/2024 10:16 AM EDT CLINICAL INDICATION: CABG post -op TECHNIQUE: XR CHEST 1 VIEW COMPARISON: May 18, 2024 FINDINGS: Interval placement of left PICC with tip overlying the right atrium. Nasogastric tube with tip terminating below the field of view. Median sternotomy wires are aligned and intact. Cardiac silhouette and mediastinal contours are similar to prior. Left lung predominant multifocal consolidation. No pleural effusions. No pneumothorax. Procedure Note Edson Ambrose MD - 05/19/2024 CLINICAL INDICATION: CABG post -op TECHNIQUE: XR CHEST 1 VIEW COMPARISON: May 18, 2024 FINDINGS: Interval placement of left PICC with tip overlying the right atrium.Nasogastric tube with tip terminating below the field of view. Mediansternotomy wires are aligned and intact. Cardiac silhouette andmediastinal contours are similar to prior. Left lung predominantmultifocal consolidation. No pleural effusions. No pneumothorax. IMPRESSION: Interval placement of left PICC with tip overlying the mid right atrium. CRITICAL RESULT: No. COMMUNICATION: Per this written report. By electronically signing this report, I, the attending physician, attestthat I have personally reviewed the images/data for the aboveexamination(s) and agree with the final edited report. Drafted by Kendall Huffman MD on 05/19/2024 9:32 AM Final report signed by Edson Ambrose MD on 05/19/2024 10:16 AM Maite Austin MD IMG XR PROCEDURES Final Result * XR Abdomen 1 View (05/19/2024 4:43 AM EDT) Anatomical Region Laterality Modality Body Digital Radiogra phy Impressions 05/19/2024 8:40 AM EDT Mildly prominent caliber of the ascending and transverse colonic segments that may represent mild ileus, similar to CT from yesterday. No evidence of bowel obstruction with transit of contrast administered yesterday to the rectum. CRITICAL RESULT: No. COMMUNICATION: Per this written report. By electronically signing this report, I, the attending physician, attest that I have personally reviewed the images/data for the above examination(s) and agree with the final edited report. Drafted by GER Moctezuma on 05/19/2024 8:15 AM Final report signed by Khari Bray MD on 05/19/2024 8:40 AM Narrative 05/19/2024 8:40 AM EDT CLINICAL INDICATION: ileus TECHNIQUE: Supine radiograph of the abdomen. COMPARISON: Upper GI fluoroscopy 05/18/2024. CT abdomen and pelvis 05/18/2024 FINDINGS: Enteric tube terminates within the proximal to mid stomach. The contrast administered yesterday during the upper GI study is seen throughout the colon, having reached the rectum. This precludes significant obstruction. There is some prominence in caliber of the large bowel, ascending colon measuring up to 8.5 cm diameter and transverse colon measuring up to 7.1 cm in diameter, perhaps representing mild ileus, as noted on yesterday's CT. No obvious edematous thumbprinting or pneumatosis of the colonic wall. No abnormal gaseous small bowel dilatation. No overt pneumoperitoneum. Urinary catheter in place. Sternotomy sutures. Evidence of prior CABG with mild cardiomegaly. Slightly coarsened pulmonary bronchovascular markings may represent an element of mild interstitial edema. No acute osseous abnormality. Procedure Note Khari Bray MD - 05/19/2024 CLINICAL INDICATION: ileus TECHNIQUE: Supine radiograph of the abdomen. COMPARISON: Upper GI fluoroscopy 05/18/2024. CT abdomen and pelvis 05/18/2024 FINDINGS: Enteric tube terminates within the proximal to mid stomach. The contrast administered yesterday during the upper GI study is seenthroughout the colon, having reached the rectum. This precludessignificant obstruction. There is some prominence in caliber of the largebowel, ascending colon measuring up to 8.5 cm diameter and transversecolon measuring up to 7.1 cm in diameter, perhaps representing mild ileus,as noted on yesterday's CT. No obvious edematous thumbprinting orpneumatosis of the colonic wall. No abnormal gaseous small bowel dilatation. No overt pneumoperitoneum.Urinary catheter in place. Sternotomy sutures. Evidence of prior CABG with mild cardiomegaly.Slightly coarsened pulmonary bronchovascular markings may represent anelement of mild interstitial edema. No acute osseous abnormality. IMPRESSION: Mildly prominent caliber of the ascending and transverse colonic segmentsthat may represent mild ileus, similar to CT from yesterday. No evidence of bowel obstruction with transit of contrast administeredyesterday to the rectum. CRITICAL RESULT: No. COMMUNICATION: Per this written report. By electronically signing this report, I, the attending physician, attestthat I have personally reviewed the images/data for the aboveexamination(s) and agree with the final edited report. Drafted by GER Moctezuma on 05/19/2024 8:15 AM Final report signed by Khari Bray MD on 05/19/2024 8:40 AM us Marybel Suarez APRN IMG XR PROCEDURES Final Result * [facility], ADDL 30 MIN (05/19/2024 2:30 AM EDT) Narrative Edson Mcclure DO - 05/19/2024 2:30 AM EDT Edson Mcclure DO 05/19/2024 8:16 AM Critical Care Performed by: Edson Mcclure DO Authorized by: Edson Mcclure DO Critical care provider statement: Critical care time (minutes): 57 Critical care time was exclusive of: Separately billable procedures and treating other patients and teaching time Critical care was time spent personally by me on the following activities: Development of treatment plan with patient or surrogate, ordering and performing treatments and interventions, ordering and review of laboratory studies, ordering and review of radiographic studies, evaluation of patient's response to treatment, examination of patient, obtaining history from patient or surrogate and discussions with consultants I assumed subsequent critical care for this patient from a provider in my division, on the same day: yes Comments: PICC placed Persistently febrile and tachycardic Edson Mcclure DO IN CLINIC/BEDSIDE ORDERABLES Final Result * Magnesium, Plasma (05/19/2024 2:02 AM EDT) Magnesium, Plasma 2.0 1.9 - 2.4 mg/dL 05/19/2024 2:45 AM EDT [facility] Blood Venous blood specimen / Unknown Venipuncture / Unknown 05/19/2024 2:02 AM EDT 05/19/2024 2:12 AM EDT Marybel Suarez APRN LAB BLOOD ORDERABLES Fin al Result [facility] [address] [place] [address] * (ABNORMAL) Comprehensive metabolic panel (05/19/2024 2:02 AM EDT) Glucose, Plasma 140(H) 74 - 99 mg/dL 05/19/2024 2:45 AM EDT [facility] BUN, Plasma 9 7 - 21 mg/dL 05/19/2024 2:45 AM EDT [facility] Creatinine, Plasma 0.80 0.60 - 1.10 mg/dL 05/19/2024 2:45 AM EDT [facility] BUN/Creatinine Ratio 11 05/19/2024 2:45 AM EDT [facility] Sodium, Plasma 142 136 - 145 mmol/L 05/19/2024 2:45 AM EDT [facility] Potassium, Plasma 3.6 3.6 - 4.9 mmol/L 05/19/2024 2:45 AM EDT [facility] Chloride, Plasma 115(H) 97 - 107 mmol/L 05/19/2024 2:45 AM EDT [facility] CO2, Plasma 17(L) 22 - 29 mmol/L 05/19/2024 2:45 AM EDT [facility] Anion Gap 10 6 - 16 mmol/L 05/19/2024 2:45 AM EDT [facility] Total Calcium, Plasma 6.8(L) 8.9 - 10.2 mg/dL 05/19/2024 2:45 AM EDT [facility] Total Protein 5.5(L) 6.3 - 7.9 g/dL 05/19/2024 2:45 AM EDT [facility] Albumin, Plasma 2.1(L) 3.5 - 5.2 g/dL 05/19/2024 2:45 AM EDT [facility] AST, Plasma 53(H) 10 - 35 U/L 05/19/2024 2:45 AM EDT [facility] ALT, Plasma 23 10 - 35 U/L 05/19/2024 2:45 AM EDT [facility] Alkaline Phosphatase, Plasma 111(H) 35 - 104 U/L 05/19/2024 2:45 AM EDT [facility] Total Bilirubin, Plasma 1.1 0.2 - 1.1 mg/dL 05/19/2024 2:45 AM EDT [facility] eGFRcr 87.7 mL/min/1.7 3m*2 05/19/2024 2:45 AM EDT [facility] Comment:Reported eGFRcr in m L/min/1.73m2 is based the CKD-EPI 2020 equation that does not use a race coefficient. Blood Venous blood specimen / Unknown Venipuncture / Unknown 05/19/2024 2:02 AM EDT 05/19/2024 2:12 AM EDT Marybel Suarez APRN LAB BLOOD ORDERABLES Fin al Result [facility] [address] [place] [address] * (ABNORMAL) CBC and differential (05/19/2024 2:02 AM EDT) WBC Count 14.70(H) 3.70 - 10.30 10*3/uL LAB HEMATOLOGY METHOD 05/19/2024 3:26 AM EDT [facility] RBC Count 3.16(L) 3.90 - 5.20 10*6/uL LAB HEMATOLOGY METHOD 05/19/2024 3:26 AM EDT [facility] HGB 9.2(L) 11.2 - 15.7 g/dL LAB HEMATOLOGY METHOD 05/19/2024 3:26 AM EDT [facility] HCT 27.7(L) 34.0 - 45.0 % LAB HEMATOLOGY METHOD 05/19/2024 3:26 AM EDT [facility] Platelet Count 629(H) 155 - 369 10*3/uL LAB HEMATOLOGY METHOD 05/19/2024 3:26 AM EDT [facility] MCV 88 79 - 98 fL LAB HEMATOLOGY METHOD 05/19/2024 3:26 AM EDT [facility] MCH 29.1 26.0 - 32.0 pg LAB HEMATOLOGY METHOD 05/19/2024 3:26 AM EDT [facility] MCHC 33.2 30.7 - 35.5 g/dL LAB HEMATOLOGY METHOD 05/19/2024 3:26 AM EDT [facility] RDW 16.6(H) 11.5 - 14.5 % LAB HEMATOLOGY METHOD 05/19/2024 3:26 AM EDT [facility] MPV 9.7 8.8 - 12.5 fL LAB HEMATOLOGY METHOD 05/19/2024 3:26 AM EDT [facility] nRBC 0.0 <=0.0 per 100 WBCs LAB HEMATOLOGY METHOD 05/19/2024 3:26 AM EDT [facility] Differential Type Automated LAB HEMATOLOGY METHOD 05/19/2024 3:26 AM EDT [facility] Neutrophils % 74 % LAB HEMATOLOGY METHOD 05/19/2024 3:26 AM EDT [facility] Lymphocytes % 12 % LAB HEMATOLOGY METHOD 05/19/2024 3:26 AM EDT [facility] Monocytes % 10 % LAB HEMATOLOGY METHOD 05/19/2024 3:26 AM EDT [facility] Eosinophils % 1 % LAB HEMATOLOGY METHOD 05/19/2024 3:26 AM EDT [facility] Basophils % 1 % LAB HEMATOLOGY METHOD 05/19/2024 3:26 AM EDT [facility] Immature Granulocytes % 2 % LAB HEMATOLOGY METHOD 05/19/2024 3:26 AM EDT [facility] Neutrophils Absolute 10.82(H) 1.60 - 6.10 10*3/uL LAB HEMATOLOGY METHOD 05/19/2024 3:26 AM EDT [facility] Lymphocytes Absolute 1.83 1.20 - 3.90 10*3/uL LAB HEMATOLOGY METHOD 05/19/2024 3:26 AM EDT [facility] Monocytes Absolute 1.52(H) 0.30 - 0.90 10*3/uL LAB HEMATOLOGY METHOD 05/19/2024 3:26 AM EDT [facility] Eosinophils Absolute 0.20 0.00 - 0.50 10*3/uL LAB HEMATOLOGY METHOD 05/19/2024 3:26 AM EDT [facility] Basophils Absolute 0.11(H) 0.00 - 0.10 10*3/uL LAB HEMATOLOGY METHOD 05/19/2024 3:26 AM EDT [facility] Immature Granulocytes Absolute 0.22(H) 0.00 - 0.06 10*3/uL LAB HEMATOLOGY METHOD 05/19/2024 3:26 AM EDT [facility] Blood Venous blood specimen / Unknown Venipuncture / Unknown 05/19/2024 2:02 AM EDT 05/19/2024 2:12 AM EDT Narrative [facility] - 05/19/2024 3:26 AM EDT Therapeutic decision making should be based on absolute values, rather than percentages. Miate Austin MD LAB BLOOD ORDERABLES Final Resu lt Performing Organization Address City/[facility]/ZIP Co de Phone Number [facility] [address] [place] [address] * (ABNORMAL) POCT glucose meter (05/19/2024 1:28 AM EDT) Pathologist [facility] POCT Glucose 160(H) 74 - 99 mg/dL 05/19/2024 1:30 AM EDT [facility] Comment:Accuracy of a glucos e result obtained from a capillary whole blood specimen relies upon adequate, non-compromised capillary blood flow. If the capillary glucose result is not consistent with the patient's clinical signs and symptoms, glucose testing should be repeated with either an arterial or venous sample on the glucometer or sent to the main labortory for testing. Comment 05/19/2024 1:30 AM EDT [facility] Field Hockey Coach ID Lesli Gardner 05/19/2024 1:30 AM EDT [facility] Device ID [id number] 05/19/2024 1:30 AM EDT [facility] Specimen Type POC Capillary 05/19/2024 1:30 AM EDT [facility] Blood Capillary blood specimen / Unknown 05/19/2024 1:28 AM EDT 05/19/2024 1:30 AM EDT us Maite Austin MD LAB POINT OF CARE TE ST DOCKED DEVICE UNSOLICITED RESULTS Final Result Performing Organization Address City/[facility]/ZIP Co de Phone Number [facility] [address] [place] [address] * POCT glucose meter (05/19/2024 1:10 AM EDT) [facility] POCT Glucose 84 74 - 99 mg/dL 05/19/2024 1:12 AM EDT [facility] Comment:Accuracy of a glucos e result obtained from a capillary whole blood specimen relies upon adequate, non-compromised capillary blood flow. If the capillary glucose result is not consistent with the patient's clinical signs and symptoms, glucose testing should be repeated with either an arterial or venous sample on the glucometer or sent to the main labortory for testing. Comment 05/19/2024 1:12 AM EDT [facility] Field Hockey Coach ID NazariohmEfren grace 05/20/19 1:12 AM EDT [facility] Device ID [id number] 05/19/2024 1:12 AM EDT [facility] Specimen Type POC Capillary 05/19/2024 1:12 AM EDT [facility] Blood Capillary blood specimen / Unknown 05/19/2024 1:10 AM EDT 05/19/2024 1:12 AM EDT us Maite Austin MD LAB POINT OF CARE TE ST DOCKED DEVICE UNSOLICITED RESULTS Final Result Performing Organization Address City/State/[facility] Co de Phone Number [facility] [address] [place] [address] * PICC DOUBLE LUMEN (SMARTFORM LINK) (05/19/2024 12:50 AM EDT) Narrative Sundeep Holt RN - 05/19/2024 12:50 AM EDT Sundeep Holt RN 05/19/2024 1:26 AM Insert PICC line Performed by: Sundeep Holt RN Authorized by: Maite Austin MD [place] Protocol: Verbal consent obtained?: Yes Written consent obtained?: Yes Risks and benefits: Risks, benefits and alternatives were discussed Consent given by: Patient and power of compliance attorney (Written Consent obtained by madalyn VAT/PICC RN from Patient's family/NOK and verified in Patient's chart. Signed 05/18/24 at 15:00.) Patient states understanding of procedure being performed: Yes Patient's understanding of procedure matches consent: Yes Procedure consent matches procedure scheduled: Yes Relevant documents present and verified: Yes Test results available and properly labeled: Yes Site marked: Yes Imaging studies available: Yes Patient identity confirmed: Verbally with patient, arm band and hospital-assigned identification number Time out: Immediately prior to the procedure a time out was called (TPN) Indications: Vascular access Local anesthetic: Lidocaine 1% without epinephrine (3 ml) Sedation: Patient sedated: No Preparation: Skin prepped with 2% chlorhexidine and skin prepped with alcohol Skin prep agent dried: Skin prep agent completely dried prior to procedure Sterile barriers: All five maximal sterile barriers used - gloves, gown, cap, mask and large sterile sheet Hand hygiene: Hand hygiene performed prior to catheter insertion Orientation: Left Location (Adult): Basilic vein (Largest vein, [id number] ratio 27%) Site selection rationale: RUE PIV and right radial arterial line. Patient position: Supine Catheter Lot #: [id number] Catheter contract project manager: [employer] Power PICC Provena Catheter placed: Double lumen Catheter size: 4 Fr Catheter trimmed length: 39 Catheter threaded length: 39 Vein placed in: SVC Catheter cm indwellin Catheter cm outside: 0 Placement confirmed by: Sherlock 3CG technology Pre-procedure: Landmarks identified Ultrasound guidance: Yes Sterile ultrasound techniques: Sterile gel and sterile probe covers were used Number of attempts: 1 Post-procedure: Adhesive securement device and sterile access caps placed on each lumen Dressing applied: CHG tegaderm Assessment: Blood return through all ports Patient tolerated the procedure well with no immediate complications.: Yes PICC kit educational material was given to the patient.: No (Placed in Patients chart.) Comments: VAT consult for PICC line for TPN. Madalyn VAT/PICC RN spoke with Sidney Jackson MD and stated team would like to proceed with PICC placement with blood cultures only negative for 24 hours. Consent obtained from Patient's family/NOK and verified in Patient's chart. Images of vein and Sherlock 3CG uploaded to PACS. Placement confirmed with Sherlock 3CG. Okay to use and order will be placed. Green alcohol caps placed on end of each lumen hub. [place] limb precaution armband placed on left wrist for PICC precautions while PICC is in place (No sticks/BP's). VAT consult completed. us Maite Austin MD IV THERAPY ORDERABLES Edited Re sult - Final * Comprehensive GI Panel by PCR (05/18/2024 11:47 PM EDT) Campylobacter PCR Result Not Detected Not Detected 05/19/2024 1:41 PM EDT [facility] Plesiomonas shigelloides PCR Result Not Detected Not Detected 05/19/2024 1:41 PM EDT [facility] Salmonella PCR Result Not Detected Not Detected 05/19/2024 1:41 PM EDT [facility] Vibrio species PCR Result Not Detected Not Detected 05/19/2024 1:41 PM EDT [facility] Vibrio cholerae PCR Result Not Detected Not Detected 05/19/2024 1:41 PM EDT [facility] Yersinia enterocolitica PCR Result Not Detected Not Detected 05/19/2024 1:41 PM EDT [facility] Enteroaggregative E. coli (EAEC) PCR Result Not Detected Not Detected 05/19/2024 1:41 PM EDT [facility] Enteropathogenic E. coli (EPEC) PCR Result Not Detected Not Detected 05/19/2024 1:41 PM EDT [facility] Enterotoxigenic E. coli (ETEC) lt/st PCR Result Not Detected Not Detected 05/19/2024 1:41 PM EDT [facility] Shiga-like Toxin-Producing E.coli (STEC) stx1/stx2 PCR Resu Not Detected Not Detected 05/19/2024 1:41 PM EDT [facility] E coli 0157 PCR Result Not Detected Not Detected 05/19/2024 1:41 PM EDT [facility] Shigella/Enteroinvas alexsandra E. coli (EIEC) PCR Result Not Detected Not Detected 05/19/2024 1:41 PM EDT [facility] Cryptosporidium PCR Result Not Detected Not Detected 05/19/2024 1:41 PM EDT [facility] Cyclospora cayetanensis PCR Result Not Detected Not Detected 05/19/2024 1:41 PM EDT [facility] Entamoeba histolytica PCR Result Not Detected Not Detected 05/19/2024 1:41 PM EDT [facility] Giardia duodenalis (aka Giardia lamblia) PCR Result Not Detected Not Detected 05/19/2024 1:41 PM EDT [facility] Adenovirus F 40/41 PCR Result Not Detected Not Detected 05/19/2024 1:41 PM EDT [facility] Astrovirus PCR Result Not Detected Not Detected 05/19/2024 1:41 PM EDT [facility] Norovirus GI/GII PCR Result Not Detected Not Detected 05/19/2024 1:41 PM EDT [facility] Rotavirus A PCR Result Not Detected Not Detected 05/19/2024 1:41 PM EDT [facility] Sapovirus PCR Result Not Detected Not Detected 05/19/2024 1:41 PM EDT [facility] Stool Rectum structure / Unknown Non-blood Collection / Unknown 05/18/2024 11:47 PM EDT 05/19/2024 2:07 AM EDT Narrative [facility] - 05/19/2024 1:41 PM EDT This specimen was tested for the following analytes: Campylobacter species, Plesiomonas shigelloides, Salmonella species, Vibrio species, Vibrio cholerae, Yersinia enterolitica, Enteroaggregative E. coli (EAEC), Enteropathogenic E. Coli (EPEC), Enterotoxigenic E. coli (ETEC), Shiga-like toxin-producing E. coli (STEC), Shigella/Enteroinvasive E. coli (EIEC), Cryptosporidium, Cyclospora cayetanensis, Entamoeba histolytica, Giardia lamblia, Adenovirus f40/41, Astrovirus, Norovirus GI/GII, Rotavirus A, and Sapovirus. Note: Clostridium difficile toxin a/b will no longer be resulted using this platform. Please order the Clostridium difficile by PCR assay if clinically indicated. Marybel Suarez APRN LAB MICROBIOLOGY - [facility] AL ORDERABLES Final Result [facility] [address] [place] [address] * Clostridiodes (Clostridium) difficile PCR (05/18/2024 11:47 PM EDT) C difficile PCR toxin B gene DNA Result Not Detected Not Detected 05/19/2024 7:36 AM EDT [facility] Stool Rectum structure / Unknown Non-blood Collection / Unknown 05/18/2024 11:47 PM EDT 05/19/2024 2:07 AM EDT Narrative [facility] - 05/19/2024 7:36 AM EDT This test is FDA approved for use with liquid stool specimens. This test is used for clinical purposes. It should not be regarded as investigational or for research. This laboratory is certified under the Clinical Laboratory Improvement Amendments of 1988 (CLIA-88) as qualified to perform high complexity clinical laboratory testing. Marybel Suarez APRN LAB MICROBIOLOGY - GENER AL ORDERABLES Final Result [facility] [address] [place] [address] * POCT glucose meter (05/18/2024 11:21 PM EDT) Pathologist [facility] POCT Glucose 97 74 - 99 mg/dL 05/18/2024 11:23 PM EDT [facility] Comment:Accuracy of a glucos e result obtained from a capillary whole blood specimen relies upon adequate, non-compromised capillary blood flow. If the capillary glucose result is not consistent with the patient's clinical signs and symptoms, glucose testing should be repeated with either an arterial or venous sample on the glucometer or sent to the main labortory for testing. Comment 05/18/2024 11:23 PM EDT [facility] Field Hockey Coach ID Lesli Gardner 05/18/2024 11:23 PM EDT [facility] Device ID [id number] 05/18/2024 11:23 PM EDT [facility] Specimen Type POC Capillary 05/18/2024 11:23 PM EDT [facility] Blood Capillary blood specimen / Unknown 05/18/2024 11:21 PM EDT 05/18/2024 11:23 PM EDT Maite Austin MD LAB POINT OF CARE TE ST DOCKED DEVICE UNSOLICITED RESULTS Final Result Performing Organization Address City/[facility]/ZIP Co de Phone Number [facility] [address] [place] [address] * (ABNORMAL) POCT glucose meter (05/18/2024 5:55 PM EDT) [facility] POCT Glucose 114(H) 74 - 99 mg/dL 05/18/2024 5:57 PM EDT [facility] Comment:Accuracy of a glucos e result obtained from a capillary whole blood specimen relies upon adequate, non-compromised capillary blood flow. If the capillary glucose result is not consistent with the patient's clinical signs and symptoms, glucose testing should be repeated with either an arterial or venous sample on the glucometer or sent to the main labortory for testing. Comment 05/18/2024 5:57 PM EDT [facility] Field Hockey Coach ID Theresa Hairston 5:57 PM EDT [facility] Device ID [id number] 05/18/2024 5:57 PM EDT [facility] Specimen Type POC Arterial 05/18/2024 5:57 PM EDT [facility] Blood Arterial blood specimen / Unknown 05/18/2024 5:55 PM EDT 05/18/2024 5:57 PM EDT us Maite Austin MD LAB POINT OF CARE TE ST DOCKED DEVICE UNSOLICITED RESULTS Final Result Performing Organization Address City/State/[facility] Co de Phone Number [facility] [address] [place] [address] * [place] [facility], E/M 30-74 MINUTES (05/18/2024 2:28 PM EDT) Narrative Dieudonne Cramer MD - 05/18/2024 2:28 PM EDT Dieudonne Cramer MD 05/18/2024 2:31 PM Critical Care Performed by: Dieudonne Cramer MD Authorized by: Dieudonne Cramer MD Critical care provider statement: Critical care time (minutes): 38 Critical care time was exclusive of: Separately billable procedures and treating other patients and teaching time Critical care was time spent personally by me on the following activities: Development of treatment plan with patient or surrogate, ordering and performing treatments and interventions, discussions with consultants, ordering and review of laboratory studies, discussions with primary provider, ordering and review of radiographic studies, evaluation of patient's response to treatment and examination of patient Critical care statement: I saw and evaluated the patient with the resident/ fellow. I discussed the case with the resident/ fellow and agree with the findings and plan as documented. us Dieudonne Cramer MD IN CLINIC/BEDSIDE ORDERABLES Final Result * (ABNORMAL) POCT glucose meter (05/18/2024 2:06 PM EDT) POCT Glucose 120(H) 74 - 99 mg/dL 05/18/2024 2:07 PM EDT [facility] Comment:Accuracy of a glucos e result obtained from a capillary whole blood specimen relies upon adequate, non-compromised capillary blood flow. If the capillary glucose result is not consistent with the patient's clinical signs and symptoms, glucose testing should be repeated with either an arterial or venous sample on the glucometer or sent to the main labortory for testing. Comment 05/18/2024 2:07 PM EDT [facility] Field Hockey Coach ID Theresa Hairston 2:07 PM EDT [facility] Device ID [id number] 05/18/2024 2:07 PM EDT [facility] Specimen Type POC Arterial 05/18/2024 2:07 PM EDT [facility] Blood Arterial blood specimen / Unknown 05/18/2024 2:06 PM EDT 05/18/2024 2:07 PM EDT Maite Austin MD LAB POINT OF CARE TE ST DOCKED DEVICE UNSOLICITED RESULTS Final Result Performing Organization Address City/State/[facility] Co de Phone Number [facility] [address] [place] [id number] * NM Upper GI (05/18/2024 11:25 AM EDT) Anatomical Region Laterality Modality Esophagus, stomach and duodenum Digital Radiography Impressions 05/18/2024 12:14 PM EDT No evidence of leak from the stomach Gastroesophageal reflux CRITICAL RESULT: No. COMMUNICATION: Per this written report. Drafted by Giovanni Shi MD on 05/18/2024 12:12 PM Final report signed by Giovnani Shi MD on 05/18/2024 12:14 PM Narrative 05/18/2024 12:14 PM EDT CLINICAL INDICATION: possible gastric perforation TECHNIQUE: Fluoroscopic evaluation of the upper GI was performed with water soluble contrast. Contrast was placed through a pre-existing gastric catheter. Fluoroscopy Time: 0.6. COMPARISON: CT abdomen pelvis May 18, 2024 FINDINGS: Esophagus: There is evidence of gastroesophageal reflux Stomach: Normal mucosal folds. No leak. Duodenum: Normal mucosal folds. No leak. Other: Included lungs are clear. Evidence of median sternotomy. The bowel gas pattern was normal. Procedure Note Giovanni Shi MD - 05/18/2024 CLINICAL INDICATION: possible gastric perforation TECHNIQUE: Fluoroscopic evaluation of the upper GI was performed with water solublecontrast. Contrast was placed through a pre-existing gastric catheter. Fluoroscopy Time: 0.6. COMPARISON: CT abdomen pelvis May 18, 2024 FINDINGS: Esophagus: There is evidence of gastroesophageal reflux Stomach: Normal mucosal folds. No leak. Duodenum: Normal mucosal folds. No leak. Other: Included lungs are clear. Evidence of median sternotomy. The bowelgas pattern was normal. IMPRESSION: No evidence of leak from the stomach Gastroesophageal reflux CRITICAL RESULT: No. COMMUNICATION: Per this written report. Drafted by Giovanni Shi MD on 05/18/2024 12:12 PM Final report signed by Giovanni Shi MD on 05/18/2024 12:14 PM Maite Austin MD IMG FLUOROSCOPY PROCEDURES [facility] Result * (ABNORMAL) POCT glucose meter (05/18/2024 9:29 AM EDT) POCT Glucose 107(H) 74 - 99 mg/dL 05/18/2024 9:30 AM EDT [facility] Comment:Accuracy of a glucos e result obtained from a capillary whole blood specimen relies upon adequate, non-compromised capillary blood flow. If the capillary glucose result is not consistent with the patient's clinical signs and symptoms, glucose testing should be repeated with either an arterial or venous sample on the glucometer or sent to the main labortory for testing. Comment 05/18/2024 9:30 AM EDT [facility] Field Hockey Coach ID Theresa Hairston 9:30 AM EDT [employer] [facility] Device ID [id number] 05/18/2024 9:30 AM EDT [facility] Specimen Type POC Arterial 05/18/2024 9:30 AM EDT [facility] Blood Arterial blood specimen / Unknown 05/18/2024 9:29 AM EDT 05/18/2024 9:30 AM EDT Maite Austin MD LAB POINT OF CARE TE ST DOCKED DEVICE UNSOLICITED RESULTS Final Result [facility] [address] [place] [address] * Magnesium (05/18/2024 4:00 AM EDT) Pathologist [facility] Magnesium, Plasma 2.3 1.9 - 2.4 mg/dL 05/18/2024 7:11 AM EDT [facility] Blood Arterial blood specimen / Unknown Venipuncture / Unknown 05/18/2024 4:00 AM EDT 05/18/2024 4:31 AM EDT Maite Austin MD LAB BLOOD ORDERABLES Final Resu lt Performing Organization Address City/[facility]/ZIP Co de Phone Number [facility] [address] [place] [address] * Phosphorus (05/18/2024 4:00 AM EDT) Pathologist [facility] Phosphorus, Plasma 3.0 2.5 - 4.5 mg/dL 05/18/2024 7:11 AM EDT [facility] Blood Arterial blood specimen / Unknown Venipuncture / Unknown 05/18/2024 4:00 AM EDT 05/18/2024 4:31 AM EDT Maite Austin MD LAB BLOOD ORDERABLES Final Resu lt Performing Organization Address City/[facility] Co de Phone Number [facility] [address] [place] [address] * (ABNORMAL) Hepatic function panel (05/18/2024 4:00 AM EDT) Conjugated Bilirubin, Plasma 0.6(H) <=0.3 mg/dL 05/18/2024 5:04 AM EDT [facility] Alkaline Phosphatase, Plasma 113(H) 35 - 104 U/L 05/18/2024 5:04 AM EDT [facility] Total Bilirubin, Plasma 1.1 0.2 - 1.1 mg/dL 05/18/2024 5:04 AM EDT [facility] Albumin, Plasma 2.1(L) 3.5 - 5.2 g/dL 05/18/2024 5:04 AM EDT [facility] Total Protein 5.5(L) 6.3 - 7.9 g/dL 05/18/2024 5:04 AM EDT [facility] ALT, Plasma 24 10 - 35 U/L 05/18/2024 5:04 AM EDT [facility] AST, Plasma 53(H) 10 - 35 U/L 05/18/2024 5:04 AM EDT [facility] Blood Arterial blood specimen / Unknown Venipuncture / Unknown 05/18/2024 4:00 AM EDT 05/18/2024 4:31 AM EDT Edson Mcclure DO LAB BLOOD ORDERABLES Final R esult Performing Organization Address City/[facility]/ZIP Co de Phone Number [facility] [address] [place] [address] * (ABNORMAL) GGT (05/18/2024 4:00 AM EDT) GGT, Plasma 105(H) 5 - 36 U/L 05/18/2024 5:04 AM EDT [facility] Blood Arterial blood specimen / Unknown Venipuncture / Unknown 05/18/2024 4:00 AM EDT 05/18/2024 4:31 AM EDT Edson Mcclure DO LAB BLOOD ORDERABLES Final R esult Performing Organization Address City/[facility]/ZIP Co de Phone Number [facility] [address] [place] [address] * (ABNORMAL) Amylase, Plasma (05/18/2024 4:00 AM EDT) Amylase 129(H) 27 - 114 U/L 05/18/2024 5:04 AM EDT [facility] Blood Arterial blood specimen / Unknown Venipuncture / Unknown 05/18/2024 4:00 AM EDT 05/18/2024 4:31 AM EDT Edson Mcclure DO LAB BLOOD ORDERABLES Final R esult [facility] [address] [place] [address] * (ABNORMAL) Lipase (05/18/2024 4:00 AM EDT) [facility] Lipase, Plasma 92(H) 19 - 63 U/L 05/18/2024 5:04 AM EDT [facility] Blood Arterial blood specimen / Unknown Venipuncture / Unknown 05/18/2024 4:00 AM EDT 05/18/2024 4:31 AM EDT Edson Mcclure DO LAB BLOOD ORDERABLES Final R esult Performing Organization Address [facility] Co de Phone Number [facility] [address] [place] [address] * (ABNORMAL) Blood gas panel, arterial (05/18/2024 4:00 AM EDT) [facility] pH, Arterial 7.45 7.35 - 7.45 LAB HEMATOLOGY METHOD 05/18/2024 4:13 AM EDT [facility] pCO2, Arterial 28(L) 35 - 48 mmHg LAB HEMATOLOGY METHOD 05/18/2024 4:13 AM EDT [facility] pO2, Arterial 72(L) 83 - 108 mmHg LAB HEMATOLOGY METHOD 05/18/2024 4:13 AM EDT [facility] SO2, Measured, Arterial 95 94 - 98 % LAB HEMATOLOGY METHOD 05/18/2024 4:13 AM EDT [facility] Base Excess, Arterial -3.6(L) -2.0 - 3.0 mmol/L LAB HEMATOLOGY METHOD 05/18/2024 4:13 AM EDT [facility] Bicarbonate, Calculated, Arterial 20(L) 22 - 26 mmol/L LAB HEMATOLOGY METHOD 05/18/2024 4:13 AM EDT [facility] Hematocrit, Whole Blood 30.1(L) 34.0 - 45.0 % LAB HEMATOLOGY METHOD 05/18/2024 4:13 AM EDT [facility] Sodium, Whole Blood 142 136 - 145 mmol/L LAB HEMATOLOGY METHOD 05/18/2024 4:13 AM EDT [facility] Potassium, Whole Blood 3.7 3.6 - 4.9 mmol/L LAB HEMATOLOGY METHOD 05/18/2024 4:13 AM EDT [facility] Chloride, Whole Blood 116(H) 97 - 107 mmol/L LAB HEMATOLOGY METHOD 05/18/2024 4:13 AM EDT [facility] Glucose, Whole Blood 110(H) 74 - 99 mg/dL LAB HEMATOLOGY METHOD 05/18/2024 4:13 AM EDT [facility] Ionized Calcium, Whole Blood 4.2(L) 4.6 - 5.1 mg/dL LAB HEMATOLOGY METHOD 05/18/2024 4:13 AM EDT [facility] Lactate, Arterial, Whole Blood 1.3 0.5 - 1.6 mmol/L LAB HEMATOLOGY METHOD 05/18/2024 4:13 AM EDT [facility] Blood Arterial blood specimen / Unknown Arterial Puncture / Unknown 05/18/2024 4:00 AM EDT 05/18/2024 4:12 AM EDT Marybel Suarez APRN LAB BLOOD ORDERABLES Fin al Result [facility] [address] [place] [address] * (ABNORMAL) POCT glucose meter (05/18/2024 3:59 AM EDT) [facility] POCT Glucose 119(H) 74 - 99 mg/dL 05/18/2024 4:01 AM EDT [facility] Comment:Accuracy of a glucos e result obtained from a capillary whole blood specimen relies upon adequate, non-compromised capillary blood flow. If the capillary glucose result is not consistent with the patient's clinical signs and symptoms, glucose testing should be repeated with either an arterial or venous sample on the glucometer or sent to the main labortory for testing. Comment 05/18/2024 4:01 AM EDT [facility] LAB [employer] Coach ID Linda Amor 05/19/19 4:01 AM EDT HEALTHCARE LAB Device ID [id number] 05/18/2024 4:01 AM EDT [facility] Specimen Type POC Arterial 05/18/2024 4:01 AM EDT [facility] Blood Arterial blood specimen / Unknown 05/18/2024 3:59 AM EDT 05/18/2024 4:01 AM EDT Maite Austin MD LAB POINT OF CARE TE ST DOCKED DEVICE UNSOLICITED RESULTS Final Result [facility] [address] [place] [address] * XR Chest 1 View (05/18/2024 2:30 AM EDT) Anatomical Region Laterality Modality Chest Digital Radiogra phy Impressions 05/18/2024 8:17 AM EDT Worsening airspace disease. CRITICAL RESULT: No. COMMUNICATION: Per this written report. Drafted by Pb Yadav MD on 05/18/2024 8:16 AM Final report signed by Pb Yadav MD on 05/18/2024 8:17 AM Narrative 05/18/2024 8:17 AM EDT CLINICAL INDICATION: CABG post -op TECHNIQUE: XR CHEST 1 VIEW COMPARISON: Earlier same day. FINDINGS: Mildly increased patchy opacities bilaterally. Trace pleural effusions. Enlarged heart and mediastinal silhouette. NG tube is. Procedure Note Pb Yadav MD - 05/18/2024 CLINICAL INDICATION: CABG post -op TECHNIQUE: XR CHEST 1 VIEW COMPARISON: Earlier same day. FINDINGS: Mildly increased patchy opacities bilaterally. Trace pleural effusions.Enlarged heart and mediastinal silhouette. NG tube is. IMPRESSION: Worsening airspace disease. CRITICAL RESULT: No. COMMUNICATION: Per this written report. Drafted by Pb Yadav MD on 05/18/2024 8:16 AM Final report signed by Pb Yadav MD on 05/18/2024 8:17 AM Maite Austin MD IMG XR PROCEDURES Final Result * CT Head wo IV Contrast (05/18/2024 2:19 AM EDT) Anatomical Region Laterality Modality Head Computed Tomogra phy Impressions 05/18/2024 2:52 AM EDT * There is no evidence of intracranial mass, hemorrhage, or acute territorial infarction. RECOMMENDATION: If there is persistent clinical concern for infarct, brain MRI is recommended. CRITICAL RESULT: No. COMMUNICATION: Per this written report. Drafted by Sundeep Fabian MD on 05/18/2024 2:45 AM Final report signed by Sundeep Fabian MD on 05/18/2024 2:52 AM Narrative 05/18/2024 2:52 AM EDT CLINICAL INDICATION: Mental status change, unknown cause TECHNIQUE: Spiral axial CT images of the head were obtained without contrast administration. Total DLP (Dose-Length Product): 1602.32 mGy.cm. Please note: The reported value represents the total of one or more individual components during the CT acquisition on this date and at this time, and as such, the same value may appear in more than one CT report depending on the interpreting/reporting physicians. COMPARISON: None. FINDINGS: Diagnostic Quality: Adequate. No midline shift, mass effect, parenchymal hemorrhage, or evidence of acute territorial infarct. Incidental note is made of a cavum septum pellucidum et cavum vergae. No extra- axial fluid collections. Basal cisterns are patent. No hydrocephalus. There are scattered atherosclerotic calcifications within the carotid siphons. Bilateral lens implants. Otherwise orbits and globes are unremarkable in appearance. Soft Tissues: No significant soft tissue swelling is present. Skull: There are no calvarial destructive lesions or fractures. Sinuses and Mastoids: Nasal septum is midline. The paranasal sinuses, mastoid air cells, and middle ear canals are well-aerated. Right nasoenteric tube terminates outside the field of view. Procedure Note Sundeep Fabian MD - 05/18/2024 CLINICAL INDICATION: Mental status change, unknown cause TECHNIQUE: Spiral axial CT images of the head were obtained without contrastadministration. Total DLP (Dose-Length Product): 1602.32 mGy.cm. Please note: The reportedvalue represents the total of one or more individual components during theCT acquisition on this date and at this time, and as such, the same valuemay appear in more than one CT report depending on theinterpreting/reporting physicians. COMPARISON: None. FINDINGS: Diagnostic Quality: Adequate. No midline shift, mass effect, parenchymal hemorrhage, or evidence ofacute territorial infarct. Incidental note is made of a cavum septum pellucidum et cavum vergae. Noextra- axial fluid collections. Basal cisterns are patent. Nohydrocephalus. There are scattered atherosclerotic calcifications within the carotidsiphons. Bilateral lens implants. Otherwise orbits and globes areunremarkable in appearance. Soft Tissues: No significant soft tissue swelling is present. Skull: There are no calvarial destructive lesions or fractures. Sinuses and Mastoids: Nasal septum is midline. The paranasal sinuses,mastoid air cells, and middle ear canals are well-aerated. Rightnasoenteric tube terminates outside the field of view. IMPRESSION: *There is no evidence of intracranial mass, hemorrhage, or acuteterritorial infarction. RECOMMENDATION: If there is persistent clinical concern for infarct, brain MRI isrecommended. CRITICAL RESULT: No. COMMUNICATION: Per this written report. Drafted by Sundeep Fabian MD on 05/18/2024 2:45 AM Final report signed by Sundeep Fabian MD on 05/18/2024 2:52 AM Marybel Suarez [employer] IM CT PROCEDURES Final Result * CT Abdomen Pelvis w IV Contrast (05/18/2024 2:19 AM EDT) Anatomical Region Laterality Modality Abdomen, Pelvis Computed Tomogra phy Impressions 05/18/2024 3:15 AM EDT * Malpositioned enteric tube with the side port above the esophageal hiatus. * Status post median sternotomy with fluid density in the anterior mediastinum which extends to the descending aorta. This fluid is likely postsurgical in nature; however, aortic inflammation could have a similar appearance. * New gas and fluid collection along the gastric fundus which extends to the splenic flexure of the transverse colon measuring up to 5.4 cm. Differential includes an abscess versus spilled gastric contents due to gastric perforation in the setting of an enteric tube. * Peribronchovascular nodular groundglass consolidation consistent with pneumonia. * Trace right and small left pleural effusions. * Liquid stool in the colon. CRITICAL RESULT: No. COMMUNICATION: Per this written report. Drafted by Sundeep Fabian MD on 05/18/2024 2:52 AM Final report signed by Sundeep Fabian MD on 05/18/2024 3:15 AM Narrative 05/18/2024 3:15 AM EDT CLINICAL INDICATION: Aortic infection or inflammation TECHNIQUE: Imaging of the chest abdomen and pelvis was performed, from thoracic inlet through pubic symphysis, using spiral technique, following administration of IV contrast, Omnipaque 300, 100 mL according to the CT Chest and CT Abdomen/Pelvis protocol. Reformatted images in the coronal, sagittal, and oblique planes were generated from the axial data set to facilitate diagnostic accuracy. Total DLP (Dose-Length Product): 1602.32 mGy.cm (accession [id number]), 1602.32 mGy.cm (accession [id number]). Please note: The reported value represents the total of one or more individual components during the CT acquisition on this date and at this time, and as such, the same value may appear in more than one CT report depending on the interpreting/reporting physicians. COMPARISON: Chest CT 05/02/2024; abdominopelvic CT 05/12/2024 FINDINGS: Chest: Endotracheal tube terminates in the stomach; however, the side port is above the esophageal hiatus.. Pleural/Pericardial Space: No pneumothorax. Trace right pleural effusion. Small left pleural effusion.. No pericardial effusion. Lymph Nodes: No lymphadenopathy within the chest. Lungs: The central airways are patent. Peribronchovascular nodular groundglass consolidation. Mediastinum: The visualized thyroid is unremarkable. The heart is within normal limits for size. While this study is not optimized for the assessment of coronary artery atherosclerotic plaque and may underestimated the plaque burden, there are moderate atherosclerotic calcifications of the coronary arteries. There are mild atherosclerotic plaques in the visualized aorta and its major branches. Fluid density subjacent to the sternotomy and within the anterior mediastinum which extends to the descending aorta.. Chest Wall: No chest wall hematoma or contusion. Bones: No acute fracture within the chest. There are degenerative changes of the visualized spine. No evidence for suspicious lytic or blastic lesions. Status post median sternotomy, the visualized wires are intact. Abdomen: Liver/Gallbladder/Biliary System: There is hepatic steatosis which limits the assessment of focal lesions. The liver demonstrates homogeneous enhancement. Status post cholecystectomy. No intra- or extra-hepatic biliary ductal dilatation. Spleen: The spleen enhances homogeneously. Pancreas: The pancreas enhances homogeneously. Adrenals: The adrenals are morphologically unremarkable. Kidneys: The kidneys demonstrate symmetric nephrogram and excretion. There are subcentimeter hypodensities bilaterally, which are too small to characterize but likely reflect simple renal cysts. No renal or ureteral calculi. No hydronephrosis. Bowel/Mesentery: The small bowel loops are not dilated. The large bowel loops are not dilated. The appendix is visualized and normal. Liquid stool throughout the colon. Minimal submucosal thickening of the rectum and proximal sigmoid. Unchanged suture along the sigmoid colon. Vessels/Lymph Nodes: There are mild atherosclerotic plaques in the visualized aortoiliac system. No lymphadenopathy within the abdomen or pelvis. Fluid Survey: New gas and fluid collection along the gastric fundus and adjacent to the splenic flexure of the transverse colon measuring 5.4 x 2.2 x 3.2 cm (TR x AP x CC). Pelvis: The bladder is decompressed by a De Los Santos catheter. Status post hysterectomy. There are no adnexal masses. Body Wall: Normal. Bones: No acute fracture within the abdomen or pelvis. Procedure Note Sundeep Fabian MD - 05/18/2024 CLINICAL INDICATION: Aortic infection or inflammation TECHNIQUE: Imaging of the chest abdomen and pelvis was performed, from thoracic inletthrough pubic symphysis, using spiral technique, following administrationof IV contrast, Omnipaque 300, [address] mL [address] Chest and CTAbdomen/Pelvis protocol. Reformatted images in the coronal, sagittal, andoblique planes were generated from the axial data set to facilitatediagnostic accuracy. Total DLP (Dose-Length Product): 1602.32 mGy.cm (accession [id number]),1602.32 mGy.cm (accession [id number]). Please note: The reported valuerepresents the total of one or more individual components during the CTacquisition on this date and at this time, and as such, the same value mayappear in more than one CT report depending on the interpreting/reportingphysicians. COMPARISON: Chest CT 05/02/2024; abdominopelvic CT 05/12/2024 FINDINGS: Chest: Endotracheal tube terminates in the stomach; however, the side port isabove the esophageal hiatus.. Pleural/Pericardial Space: No pneumothorax. Trace right pleural effusion.Small left pleural effusion.. No pericardial effusion. Lymph Nodes: No lymphadenopathy within the chest. Lungs: The central airways are patent. Peribronchovascular nodulargroundglass consolidation. Mediastinum: The visualized thyroid is unremarkable. The heart is withinnormal limits for size. While this study is not optimized for theassessment of coronary artery atherosclerotic plaque and mayunderestimated the plaque burden, there are moderate atheroscleroticcalcifications of the coronary arteries. There are mild atheroscleroticplaques in the visualized aorta and its major branches. Fluid density subjacent to the sternotomy and within the anteriormediastinum which extends to the descending aorta.. Chest Wall: No chest wall hematoma or contusion. Bones: No acute fracture within the chest. There are degenerative changesof the visualized spine. No evidence for suspicious lytic or blasticlesions. Status post median sternotomy, the visualized wires are intact. Abdomen: Liver/Gallbladder/Biliary System: There is hepatic steatosis which limitsthe assessment of focal lesions. The liver demonstrates homogeneousenhancement. Status post cholecystectomy. No intra- or extra-hepaticbiliary ductal dilatation. Spleen: The spleen enhances homogeneously. Pancreas: The pancreas enhances homogeneously. Adrenals: The adrenals are morphologically unremarkable. Kidneys: The kidneys demonstrate symmetric nephrogram and excretion. Thereare subcentimeter hypodensities bilaterally, which are too small tocharacterize but likely reflect simple renal cysts. No renal or ureteralcalculi. No hydronephrosis. Bowel/Mesentery: The small bowel loops are not dilated. The large bowelloops are not dilated. The appendix is visualized and normal. Liquid stoolthroughout the colon. Minimal submucosal thickening of the rectum andproximal sigmoid. Unchanged suture along the sigmoid colon. Vessels/Lymph Nodes: There are mild atherosclerotic plaques in thevisualized aortoiliac system. No lymphadenopathy within the abdomen orpelvis. Fluid Survey: New gas and fluid collection along the gastric fundus andadjacent to the splenic flexure of the transverse colon measuring 5.4 x2.2 x 3.2 cm (TR x AP x CC). Pelvis: The bladder is decompressed by a De [place] Santos catheter. Status posthysterectomy. There are no adnexal masses. Body Wall: Normal. Bones: No acute fracture within the abdomen or pelvis. IMPRESSION: *Malpositioned enteric tube with the side port above the esophagealhiatus. *Status post median sternotomy with fluid density in the anteriormediastinum which extends to the descending aorta. This fluid is likelypostsurgical in nature; however, aortic inflammation could have a similarappearance. *New gas and fluid collection along the gastric fundus which extends tothe splenic flexure of the transverse colon measuring up to 5.4 cm.Differential includes an abscess versus spilled gastric contents due togastric perforation in the setting of an enteric tube. *Peribronchovascular nodular groundglass consolidation consistent withpneumonia. *Trace right and small left pleural effusions. *Liquid stool in the colon. CRITICAL RESULT: No. COMMUNICATION: Per this written report. Drafted by Sundeep Fabian MD on 05/18/2024 2:52 AM Final report signed by Sundeep Fabian MD on 05/18/2024 3:15 AM Marybel Suarez [employer] IM CT PROCEDURES Final Result * CT Chest w IV Contrast (05/18/2024 2:19 AM EDT) Anatomical Region Laterality Modality Chest Computed Tomogra phy Impressions 05/18/2024 3:15 AM EDT * Malpositioned enteric tube with the side port above the esophageal hiatus. * Status post median sternotomy with fluid density in the anterior mediastinum which extends to the descending aorta. This fluid is likely postsurgical in nature; however, aortic inflammation could have a similar appearance. * New gas and fluid collection along the gastric fundus which extends to the splenic flexure of the transverse colon measuring up to 5.4 cm. Differential includes an abscess versus spilled gastric contents due to gastric perforation in the setting of an enteric tube. * Peribronchovascular nodular groundglass consolidation consistent with pneumonia. * Trace right and small left pleural effusions. * Liquid stool in the colon. CRITICAL RESULT: No. COMMUNICATION: Per this written report. Drafted by Sundeep Fabian MD on 05/18/2024 2:52 AM Final report signed by Sundeep Fabian MD on 05/18/2024 3:15 AM Narrative 05/18/2024 3:15 AM EDT CLINICAL INDICATION: Aortic infection or inflammation TECHNIQUE: Imaging of the chest abdomen and pelvis was performed, from thoracic inlet through pubic symphysis, using spiral technique, following administration of IV contrast, Omnipaque 300, 100 mL according to the CT Chest and CT Abdomen/Pelvis protocol. Reformatted images in the coronal, sagittal, and oblique planes were generated from the axial data set to facilitate diagnostic accuracy. Total DLP (Dose-Length Product): 1602.32 mGy.cm (accession [id number]), 1602.32 mGy.cm (accession [id number]). Please note: The reported value represents the total of one or more individual components during the CT acquisition on this date and at this time, and as such, the same value may appear in more than one CT report depending on the interpreting/reporting physicians. COMPARISON: Chest CT 05/02/2024; abdominopelvic CT 05/12/2024 FINDINGS: Chest: Endotracheal tube terminates in the stomach; however, the side port is above the esophageal hiatus.. Pleural/Pericardial Space: No pneumothorax. Trace right pleural effusion. Small left pleural effusion.. No pericardial effusion. Lymph Nodes: No lymphadenopathy within the chest. Lungs: The central airways are patent. Peribronchovascular nodular groundglass consolidation. Mediastinum: The visualized thyroid is unremarkable. The heart is within normal limits for size. While this study is not optimized for the assessment of coronary artery atherosclerotic plaque and may underestimated the plaque burden, there are moderate atherosclerotic calcifications of the coronary arteries. There are mild atherosclerotic plaques in the visualized aorta and its major branches. Fluid density subjacent to the sternotomy and within the anterior mediastinum which extends to the descending aorta.. Chest Wall: No chest wall hematoma or contusion. Bones: No acute fracture within the chest. There are degenerative changes of the visualized spine. No evidence for suspicious lytic or blastic lesions. Status post median sternotomy, the visualized wires are intact. Abdomen: Liver/Gallbladder/Biliary System: There is hepatic steatosis which limits the assessment of focal lesions. The liver demonstrates homogeneous enhancement. Status post cholecystectomy. No intra- or extra-hepatic biliary ductal dilatation. Spleen: The spleen enhances homogeneously. Pancreas: The pancreas enhances homogeneously. Adrenals: The adrenals are morphologically unremarkable. Kidneys: The kidneys demonstrate symmetric nephrogram and excretion. There are subcentimeter hypodensities bilaterally, which are too small to characterize but likely reflect simple renal cysts. No renal or ureteral calculi. No hydronephrosis. Bowel/Mesentery: The small bowel loops are not dilated. The large bowel loops are not dilated. The appendix is visualized and normal. Liquid stool throughout the colon. Minimal submucosal thickening of the rectum and proximal sigmoid. Unchanged suture along the sigmoid colon. Vessels/Lymph Nodes: There are mild atherosclerotic plaques in the visualized aortoiliac system. No lymphadenopathy within the abdomen or pelvis. Fluid Survey: New gas and fluid collection along the gastric fundus and adjacent to the splenic flexure of the transverse colon measuring 5.4 x 2.2 x 3.2 cm (TR x AP x CC). Pelvis: The bladder is decompressed by a De Los Santos catheter. Status post hysterectomy. There are no adnexal masses. Body Wall: Normal. Bones: No acute fracture within the abdomen or pelvis. Procedure Note Sundeep Fabian MD - 05/18/2024 CLINICAL INDICATION: Aortic infection or inflammation TECHNIQUE: Imaging of the chest abdomen and pelvis was performed, from thoracic inletthrough pubic symphysis, using spiral technique, following administrationof IV contrast, Omnipaque 300, [address] Chest and CTAbdomen/Pelvis protocol. Reformatted images in the coronal, sagittal, andoblique planes were generated from the axial data set to facilitatediagnostic accuracy. Total DLP (Dose-Length Product): 1602.32 mGy.cm (accession [id number]),1602.32 mGy.cm (accession [id number]). Please note: The reported valuerepresents the total of one or more individual components during the CTacquisition on this date and at this time, and as such, the same value mayappear in more than one CT report depending on the interpreting/reportingphysicians. COMPARISON: Chest CT 05/02/2024; abdominopelvic CT 05/12/2024 FINDINGS: Chest: Endotracheal tube terminates in the stomach; however, the side port isabove the esophageal hiatus.. Pleural/Pericardial Space: No pneumothorax. Trace right pleural effusion.Small left pleural effusion.. No pericardial effusion. Lymph Nodes: No lymphadenopathy within the chest. Lungs: The central airways are patent. Peribronchovascular nodulargroundglass consolidation. Mediastinum: The visualized thyroid is unremarkable. The heart is withinnormal limits for size. While this study is not optimized for theassessment of coronary artery atherosclerotic plaque and mayunderestimated the plaque burden, there are moderate atheroscleroticcalcifications of the coronary arteries. There are mild atheroscleroticplaques in the visualized aorta and its major branches. Fluid density subjacent to the sternotomy and within the anteriormediastinum which extends to the descending aorta.. Chest Wall: No chest wall hematoma or contusion. Bones: No acute fracture within the chest. There are degenerative changesof the visualized spine. No evidence for suspicious lytic or blasticlesions. Status post median sternotomy, the visualized wires are intact. Abdomen: Liver/Gallbladder/Biliary System: There is hepatic steatosis which limitsthe assessment of focal lesions. The liver demonstrates homogeneousenhancement. Status post cholecystectomy. No intra- or extra-hepaticbiliary ductal dilatation. Spleen: The spleen enhances homogeneously. Pancreas: The pancreas enhances homogeneously. Adrenals: The adrenals are morphologically unremarkable. Kidneys: The kidneys demonstrate symmetric nephrogram and excretion. Thereare subcentimeter hypodensities bilaterally, which are too small tocharacterize but likely reflect simple renal cysts. No renal or ureteralcalculi. No hydronephrosis. Bowel/Mesentery: The small bowel loops are not dilated. The large bowelloops are not dilated. The appendix is visualized and normal. Liquid stoolthroughout the colon. Minimal submucosal thickening of the rectum andproximal sigmoid. Unchanged suture along the sigmoid colon. Vessels/Lymph Nodes: There are mild atherosclerotic plaques in thevisualized aortoiliac system. No lymphadenopathy within the abdomen orpelvis. Fluid Survey: New gas and fluid collection along the gastric fundus andadjacent to the splenic flexure of the transverse colon measuring 5.4 x2.2 x 3.2 cm (TR x AP x CC). Pelvis: The bladder is decompressed by a De Los Santos catheter. Status posthysterectomy. There are no adnexal masses. Body Wall: Normal. Bones: No acute fracture within the abdomen or pelvis. IMPRESSION: *Malpositioned enteric tube with the side port above the esophagealhiatus. *Status post median sternotomy with fluid density in the anteriormediastinum which extends to the descending aorta. This fluid is likelypostsurgical in nature; however, aortic inflammation could have a similarappearance. *New gas and fluid collection along the gastric fundus which extends tothe splenic flexure of the transverse colon measuring up to 5.4 cm.Differential includes an abscess versus spilled gastric contents due togastric perforation in the setting of an enteric tube. *Peribronchovascular nodular groundglass consolidation consistent withpneumonia. *Trace right and small left pleural effusions. *Liquid stool in the colon. CRITICAL RESULT: No. COMMUNICATION: Per this written report. Drafted by Sundeep Fabian MD on 05/18/2024 2:52 AM Final report signed by Sundeep Fabian MD on 05/18/2024 3:15 AM Marybel Suarez APRN IMG CT PROCEDURES Final Result * (ABNORMAL) Magnesium, Plasma (05/18/2024 12:20 AM EDT) Magnesium, Plasma 2.6(H) 1.9 - 2.4 mg/dL 05/18/2024 12:55 AM EDT [facility] Blood Arterial blood specimen / Unknown Venipuncture / Unknown 05/18/2024 12:20 AM EDT 05/18/2024 12:25 AM EDT Marybel Suarez APRN LAB BLOOD ORDERABLES Fin al Result [facility] [address] [place] [address] * (ABNORMAL) Comprehensive metabolic panel (05/18/2024 12:20 AM EDT) Glucose, Plasma 112(H) 74 - 99 mg/dL 05/18/2024 12:55 AM EDT [facility] BUN, Plasma 13 7 - 21 mg/dL 05/18/2024 12:55 AM EDT [facility] Creatinine, Plasma 0.77 0.60 - 1.10 mg/dL 05/18/2024 12:55 AM EDT [facility] BUN/Creatinine Ratio 17 05/18/2024 12:55 AM EDT [facility] Sodium, Plasma 143 136 - 145 mmol/L 05/18/2024 12:55 AM EDT [facility] Potassium, Plasma 4.2 3.6 - 4.9 mmol/L 05/18/2024 12:55 AM EDT [facility] Chloride, Plasma 115(H) 97 - 107 mmol/L 05/18/2024 12:55 AM EDT [facility] CO2, Plasma 19(L) 22 - 29 mmol/L 05/18/2024 12:55 AM EDT [facility] Anion Gap 9 6 - 16 mmol/L 05/18/2024 12:55 AM EDT [facility] Total Calcium, Plasma 7.5(L) 8.9 - 10.2 mg/dL 05/18/2024 12:55 AM EDT [facility] Total Protein 5.6(L) 6.3 - 7.9 g/dL 05/18/2024 12:55 AM EDT [facility] Albumin, Plasma 2.1(L) 3.5 - 5.2 g/dL 05/18/2024 12:55 AM EDT [facility] AST, Plasma 61(H) 10 - 35 U/L 05/18/2024 12:55 AM EDT [facility] ALT, Plasma 27 10 - 35 U/L 05/18/2024 12:55 AM EDT [facility] Alkaline Phosphatase, Plasma 115(H) 35 - 104 U/L 05/18/2024 12:55 AM EDT [facility] Total Bilirubin, Plasma 1.1 0.2 - 1.1 mg/dL 05/18/2024 12:55 AM EDT [facility] eGFRcr 91.8 mL/min/1.7 3m*2 05/18/2024 12:55 AM EDT [facility] Comment:Reported eGFRcr in m L/min/1.73m2 is based the CKD-EPI 2020 equation that does not use a race coefficient. Blood Arterial blood specimen / Unknown Venipuncture / Unknown 05/18/2024 12:20 AM EDT 05/18/2024 12:25 AM EDT us Marybel Suarez APRN LAB BLOOD ORDERABLES Fin al Result [facility] [address] [place] [address] * (ABNORMAL) CBC and differential (05/18/2024 12:20 AM EDT) WBC Count 14.70(H) 3.70 - 10.30 10*3/uL LAB HEMATOLOGY METHOD 05/18/2024 1:36 AM EDT [facility] RBC Count 3.31(L) 3.90 - 5.20 10*6/uL LAB HEMATOLOGY METHOD 05/18/2024 1:36 AM EDT [facility] HGB 9.6(L) 11.2 - 15.7 g/dL LAB HEMATOLOGY METHOD 05/18/2024 1:36 AM EDT [facility] HCT 29.0(L) 34.0 - 45.0 % LAB HEMATOLOGY METHOD 05/18/2024 1:36 AM EDT [facility] Platelet Count 590(H) 155 - 369 10*3/uL LAB HEMATOLOGY METHOD 05/18/2024 1:36 AM EDT [facility] MCV 88 79 - 98 fL LAB HEMATOLOGY METHOD 05/18/2024 1:36 AM EDT [facility] MCH 29.0 26.0 - 32.0 pg LAB HEMATOLOGY METHOD 05/18/2024 1:36 AM EDT [facility] MCHC 33.1 30.7 - 35.5 g/dL LAB HEMATOLOGY METHOD 05/18/2024 1:36 AM EDT [facility] RDW 17.0(H) 11.5 - 14.5 % LAB HEMATOLOGY METHOD 05/18/2024 1:36 AM EDT [facility] MPV 9.8 8.8 - 12.5 fL LAB HEMATOLOGY METHOD 05/18/2024 1:36 AM EDT [facility] nRBC 0.1(H) <=0.0 per 100 WBCs LAB HEMATOLOGY METHOD 05/18/2024 1:36 AM EDT [facility] Differential Type Automated LAB HEMATOLOGY METHOD 05/18/2024 1:36 AM EDT [facility] Neutrophils % 77 % LAB HEMATOLOGY METHOD 05/18/2024 1:36 AM EDT [facility] Lymphocytes % 11 % LAB HEMATOLOGY METHOD 05/18/2024 1:36 AM EDT [facility] Monocytes % 8 % LAB HEMATOLOGY METHOD 05/18/2024 1:36 AM EDT [facility] Eosinophils % 1 % LAB HEMATOLOGY METHOD 05/18/2024 1:36 AM EDT [facility] Basophils % 1 % LAB HEMATOLOGY METHOD 05/18/2024 1:36 AM EDT [facility] Immature Granulocytes % 2 % LAB HEMATOLOGY METHOD 05/18/2024 1:36 AM EDT [facility] Neutrophils Absolute 11.39(H) 1.60 - 6.10 10*3/uL LAB HEMATOLOGY METHOD 05/18/2024 1:36 AM EDT [facility] Lymphocytes Absolute 1.67 1.20 - 3.90 10*3/uL LAB HEMATOLOGY METHOD 05/18/2024 1:36 AM EDT [facility] Monocytes Absolute 1.20(H) 0.30 - 0.90 10*3/uL LAB HEMATOLOGY METHOD 05/18/2024 1:36 AM EDT [facility] Eosinophils Absolute 0.09 0.00 - 0.50 10*3/uL LAB HEMATOLOGY METHOD 05/18/2024 1:36 AM EDT [facility] Basophils Absolute 0.08 0.00 - 0.10 10*3/uL LAB HEMATOLOGY METHOD 05/18/2024 1:36 AM EDT [facility] Immature Granulocytes Absolute 0.27(H) 0.00 - 0.06 10*3/uL LAB HEMATOLOGY METHOD 05/18/2024 1:36 AM EDT [facility] Blood Arterial blood specimen / Unknown Venipuncture / Unknown 05/18/2024 12:20 AM EDT 05/18/2024 12:25 AM EDT Narrative [facility] - 05/18/2024 1:36 AM EDT Therapeutic decision making should be based on absolute values, rather than percentages. us Maite Austin MD LAB BLOOD ORDERABLES Final Resu lt [facility] [address] [place] [address] * (ABNORMAL) POCT glucose meter (05/18/2024 12:19 AM EDT) [facility] Signature POCT Glucose 109(H) 74 - 99 mg/dL 05/18/2024 12:21 AM EDT [facility] Comment:Accuracy of a glucos e result obtained from a capillary whole blood specimen relies upon adequate, non-compromised capillary blood flow. If the capillary glucose result is not consistent with the patient's clinical signs and symptoms, glucose testing should be repeated with either an arterial or venous sample on the glucometer or sent to the main labortory for testing. Comment 05/18/2024 12:21 AM EDT [facility] Field Hockey Coach ID Linda Amor 05/19/19 12:21 AM EDT [facility] Device ID [id number] 05/18/2024 12:21 AM EDT [facility] Specimen Type POC Arterial 05/18/2024 12:21 AM EDT [facility] Blood Arterial blood specimen / Unknown 05/18/2024 12:19 AM EDT 05/18/2024 12:21 AM EDT us Maite Austin MD LAB POINT OF CARE TE ST DOCKED DEVICE UNSOLICITED RESULTS Final Result Performing Organization Address City/[facility]/ZIP Co de Phone Number [facility] [address] [place] [address] * Methicillin Resistant Staphylococcus aureus (MRSA) by PCR (05/17/2024 10:58 PM EDT) Methicillin Resistant Staphylococcus aureus (MRSA) by PCR Not Detected Not Detected 05/18/2024 12:44 AM EDT [facility] Swab Both anterior nares / Unknown Non-blood Collection / Unknown 05/17/2024 10:58 PM EDT 05/17/2024 11:21 PM EDT Narrative [facility] - 05/18/2024 12:44 AM EDT This test is FDA approved for use with nares swab specimens using the eSwabs. This test is used for clinical purposes. It should not be regarded as investigational or for research. This laboratory is certified under the Clinical Laboratory improvement Amendments of 1988 (CLIA-88 as qualified to perform high complexity clinical laboratory testing. us Marybel Suarez APRN LAB MICROBIOLOGY - GENER AL ORDERABLES Final Result [facility] [address] [place] [address] * POCT glucose meter (05/17/2024 7:24 PM EDT) POCT Glucose 99 74 - 99 mg/dL 05/17/2024 7:48 PM EDT [facility] Comment:Accuracy of a glucos e result obtained from a capillary whole blood specimen relies upon adequate, non-compromised capillary blood flow. If the capillary glucose result is not consistent with the patient's clinical signs and symptoms, glucose testing should be repeated with either an arterial or venous sample on the glucometer or sent to the main labortory for testing. Comment 05/17/2024 7:48 PM EDT [facility] Field Hockey Coach ID Linda Amor 05/18/19 7:48 PM EDT [facility] Device ID [id number] 05/17/2024 7:48 PM EDT [facility] Specimen Type POC Arterial 05/17/2024 7:48 PM EDT [facility] Blood Arterial blood specimen / Unknown 05/17/2024 7:24 PM EDT 05/17/2024 7:48 PM EDT us Maite Austin MD LAB POINT OF CARE TE ST DOCKED DEVICE UNSOLICITED RESULTS Final Result Performing Organization Address City/State/[facility] Co de Phone Number [facility] [address] [place] [address] * (ABNORMAL) CBC and differential (05/17/2024 6:13 PM EDT) WBC Count 13.62(H) 3.70 - 10.30 10*3/uL LAB HEMATOLOGY METHOD 05/17/2024 7:48 PM EDT [facility] RBC Count 3.35(L) 3.90 - 5.20 10*6/uL LAB HEMATOLOGY METHOD 05/17/2024 7:48 PM EDT [facility] HGB 9.7(L) 11.2 - 15.7 g/dL LAB HEMATOLOGY METHOD 05/17/2024 7:48 PM EDT [facility] HCT 29.7(L) 34.0 - 45.0 % LAB HEMATOLOGY METHOD 05/17/2024 7:48 PM EDT [facility] Platelet Count 607(H) 155 - 369 10*3/uL LAB HEMATOLOGY METHOD 05/17/2024 7:48 PM EDT [facility] MCV 89 79 - 98 fL LAB HEMATOLOGY METHOD 05/17/2024 7:48 PM EDT [facility] MCH 29.0 26.0 - 32.0 pg LAB HEMATOLOGY METHOD 05/17/2024 7:48 PM EDT [facility] MCHC 32.7 30.7 - 35.5 g/dL LAB HEMATOLOGY METHOD 05/17/2024 7:48 PM EDT [facility] RDW 17.2(H) 11.5 - 14.5 % LAB HEMATOLOGY METHOD 05/17/2024 7:48 PM EDT [facility] MPV 10.1 8.8 - 12.5 fL LAB HEMATOLOGY METHOD 05/17/2024 7:48 PM EDT [facility] nRBC 0.1(H) <=0.0 per 100 WBCs LAB HEMATOLOGY METHOD 05/17/2024 7:48 PM EDT [facility] Differential Type Automated LAB HEMATOLOGY METHOD 05/17/2024 7:48 PM EDT [facility] Neutrophils % 80 % LAB HEMATOLOGY METHOD 05/17/2024 7:48 PM EDT [facility] Lymphocytes % 9 % LAB HEMATOLOGY METHOD 05/17/2024 7:48 PM EDT [facility] Monocytes % 8 % LAB HEMATOLOGY METHOD 05/17/2024 7:48 PM EDT [facility] Eosinophils % 0 % LAB HEMATOLOGY METHOD 05/17/2024 7:48 PM EDT [facility] Basophils % 0 % LAB HEMATOLOGY METHOD 05/17/2024 7:48 PM EDT [facility] Immature Granulocytes % 3 % LAB HEMATOLOGY METHOD 05/17/2024 7:48 PM EDT [facility] Neutrophils Absolute 10.86(H) 1.60 - 6.10 10*3/uL LAB HEMATOLOGY METHOD 05/17/2024 7:48 PM EDT [facility] Lymphocytes Absolute 1.27 1.20 - 3.90 10*3/uL LAB HEMATOLOGY METHOD 05/17/2024 7:48 PM EDT [facility] Monocytes Absolute 1.04(H) 0.30 - 0.90 10*3/uL LAB HEMATOLOGY METHOD 05/17/2024 7:48 PM EDT [facility] Eosinophils Absolute 0.04 0.00 - 0.50 10*3/uL LAB HEMATOLOGY METHOD 05/17/2024 7:48 PM EDT [facility] Basophils Absolute 0.06 0.00 - 0.10 10*3/uL LAB HEMATOLOGY METHOD 05/17/2024 7:48 PM EDT [facility] Immature Granulocytes Absolute 0.35(H) 0.00 - 0.06 10*3/uL LAB HEMATOLOGY METHOD 05/17/2024 7:48 PM EDT [facility] Blood Venous blood specimen / Unknown Venipuncture / Unknown 05/17/2024 6:13 PM EDT 05/17/2024 6:32 PM EDT Narrative [facility] - 05/17/2024 7:48 PM EDT Therapeutic decision making should be based on absolute values, rather than percentages. us Maite Austin MD LAB BLOOD ORDERABLES Final Resu lt Performing Organization Address City/[facility]/[place] [address] * AFB Blood Culture (05/17/2024 6:13 PM EDT) AFB Culture No Mycobacterial Growth at 6 Weeks 07/06/2024 5:16 PM EDT [facility] Blood Venous blood specimen / Unknown Venipuncture / Unknown 05/17/2024 6:13 PM EDT 05/17/2024 6:32 PM EDT us Lora Llanes APRN LAB MICROBIOLOGY - GENERAL ORDERABLES Final Result Performing Organization Address City/[facility]/[place] [address] * Fungal Blood Culture (05/17/2024 6:13 PM EDT) Culture No Fungal Growth at 6 Weeks 07/07/2024 11:43 AM EDT [facility] Blood Venous blood specimen / Unknown Venipuncture / Unknown 05/17/2024 6:13 PM EDT 05/17/2024 6:32 PM EDT us Lora Llanes APRN LAB MICROBIOLOGY - GENERAL ORDERABLES Final Result Performing Organization Address City/[facility]/ZIP Co de Phone Number [address] [place] [address] * Beta Glucan (Fungitel), Serum (05/17/2024 6:13 PM EDT) [facility] Signature Beta Glucan (Fungitell) 43 <80 pg/mL 05/19/2024 4:58 PM EDT [facility]) Comment: Interpretation: The Fungitell assay does not detect certain fungal species such as the genus Cryptococcus (Rica et al. 1991) which produces very low levels of (1-3)-Okyu-M-Fzztgk. The assay also does not detect the Zygomycetes such as Absidia, Mucor and Rhizopus (Stacey et al. 1994) which are not known to produce (1-3)-Eqns-J-Jdgylf. In addition, the yeast phase of Blastomyces dermatitidis produces little (1-3)-Bqbu-D-Fkervh and may not be detected by the assay (Mel et al. 2007). Reference Range: Less than 60 pg/mL. Glucan values of less than 60 pg/mL are interpreted as negative. Glucan values of 60 to 79 pg/mL are interpreted as indeterminate, and suggest a possible fungal infection. Additional sampling and testing of sera is required to interpret the results. Glucan values of greater than or equal to 80 pg/mL are interpreted as positive. Due to the potential for environmental contamination when transferred to pour-off tubes, which can lead to false positive results, interpret positive results from samples provided in pour-off tubes with caution. Results should be used in conjunction with clinical findings, and should not form the sole basis for a diagnosis or treatment decision. The Fungitell test is approved or cleared for in vitro diagnostic use by the U.[place] Food and Drug Administration. Modifications to the approved package insert have been made and the performance characteristics for these modifications were determined by [facility]. If sample result is greater than 500 pg/mL, physician may order a titer of the sample. Please contact [facility] if you would like to order a retest of this sample to obtain an actual value. Samples are held for 1 week after initial testing date. Testing Performed at: [facility] [address] [place] [address], [address] [place] [address] Jewelry Sorter: Clayton Mata, PhD BCLJoelle (ABB) CLIA # [id number] FLAG Interpretation: A = Abnormal, H = High, L = Low Blood Venous blood specimen / Unknown Venipuncture / Unknown 05/17/2024 6:13 PM EDT 05/17/2024 6:27 PM EDT Narrative KWABENA GALAVIZ) - 05/19/2024 4:58 PM EDT Release to patient in [facility]->Immediate us Lora Llanes [employer] LAB BLOOD ORDERABLES Final Result KWABENA GALAVIZ) * [facility], E/M 30-74 MINUTES (05/17/2024 4:40 PM EDT) Narrative Dieudonne Cramer MD - 05/17/2024 4:40 PM EDT Dieudonne Cramer MD 05/18/2024 7:43 AM Critical Care Performed by: Dieudonne Cramer MD Authorized by: Dieudonne Cramer MD Critical care provider statement: Critical care time (minutes): 38 Critical care time was exclusive of: Separately billable procedures and treating other patients and teaching time Critical care was time spent personally by me on the following activities: Development of treatment plan with patient or surrogate, ordering and performing treatments and interventions, discussions with consultants, ordering and review of laboratory studies, discussions with primary provider, ordering and review of radiographic studies, evaluation of patient's response to treatment and examination of patient Critical care statement: I saw and evaluated the patient with the resident/ fellow. I discussed the case with the resident/ fellow and agree with the findings and plan as documented. us Dieudonne Cramer MD IN CLINIC/BEDSIDE ORDERABLES Final Result * (ABNORMAL) Blood gas panel, arterial (05/17/2024 3:14 PM EDT) pH, Arterial 7.43 7.35 - 7.45 LAB HEMATOLOGY METHOD 05/17/2024 3:27 PM EDT [facility] pCO2, Arterial 28(L) 35 - 48 mmHg LAB HEMATOLOGY METHOD 05/17/2024 3:27 PM EDT [facility] pO2, Arterial 114(H) 83 - 108 mmHg LAB HEMATOLOGY METHOD 05/17/2024 3:27 PM EDT [facility] SO2, Measured, Arterial 98 94 - 98 % LAB HEMATOLOGY METHOD 05/17/2024 3:27 PM EDT [facility] Base Excess, Arterial -5.0(L) -2.0 - 3.0 mmol/L LAB HEMATOLOGY METHOD 05/17/2024 3:27 PM EDT [facility] Bicarbonate, Calculated, Arterial 18(L) 22 - 26 mmol/L LAB HEMATOLOGY METHOD 05/17/2024 3:27 PM EDT [facility] Hematocrit, Whole Blood 31.9(L) 34.0 - 45.0 % LAB HEMATOLOGY METHOD 05/17/2024 3:27 PM EDT [facility] Sodium, Whole Blood 146(H) 136 - 145 mmol/L LAB HEMATOLOGY METHOD 05/17/2024 3:27 PM EDT [facility] Potassium, Whole Blood 3.9 3.6 - 4.9 mmol/L LAB HEMATOLOGY METHOD 05/17/2024 3:27 PM EDT [facility] Chloride, Whole Blood 118(H) 97 - 107 mmol/L LAB HEMATOLOGY METHOD 05/17/2024 3:27 PM EDT [facility] Glucose, Whole Blood 67(L) 74 - 99 mg/dL LAB HEMATOLOGY METHOD 05/17/2024 3:27 PM EDT [facility] Ionized Calcium, Whole Blood 4.2(L) 4.6 - 5.1 mg/dL LAB HEMATOLOGY METHOD 05/17/2024 3:27 PM EDT [facility] Lactate, Arterial, Whole Blood 1.3 0.5 - 1.6 mmol/L LAB HEMATOLOGY METHOD 05/17/2024 3:27 PM EDT [facility] Blood Arterial blood specimen / Unknown Arterial Puncture / Unknown 05/17/2024 3:14 PM EDT 05/17/2024 3:26 PM EDT us Maite Austin MD LAB BLOOD ORDERABLES Final Resu lt [facility] [address] [place] [address] * (ABNORMAL) Procalcitonin (05/17/2024 3:08 PM EDT) Procalcitonin, Plasma 0.46(H) <0.09 ng/mL 05/17/2024 7:40 PM EDT [facility] Blood Venous blood specimen / Unknown Venipuncture / Unknown 05/17/2024 3:08 PM EDT 05/17/2024 3:37 PM EDT Narrative [facility] - 05/17/2024 7:40 PM EDT Procalcitonin concentrations in healthy individuals are <0.09 ng/mL. Published data support the following interpretive risk assessment: An elevated procalcitonin result does not always indicate sepsis. Various non-infectious conditions are known to increase procalcitonin. Results should be considered in the context of clinical symptoms and other laboratory tests. Procalcitonin >2.0 ng/mL: Concentrations >2.0 ng/mL on the first day of ICU admission are associated with a higher risk of progression to severe sepsis and/or septic shock. The change in PCT over time may help predict 28 day mortality risk. Please consult [email or web address] for more information. Test performed at [facility], Core Laboratory. us Marybel Suaerz APRN LAB BLOOD ORDERABLES Fin al Result Performing Organization Address City/[facility]/ZIP Co de Phone Number [facility] [address] [place] [address] * Phosphorus (05/17/2024 3:08 PM EDT) Phosphorus, Plasma 3.5 2.5 - 4.5 mg/dL 05/17/2024 4:07 PM EDT [facility] Blood Venous blood specimen / Unknown Venipuncture / Unknown 05/17/2024 3:08 PM EDT 05/17/2024 3:37 PM EDT us Maite Austin MD LAB BLOOD ORDERABLES Final Resu lt Performing Organization Address City/[facility]/ZIP Co de Phone Number [facility] [address] [place] [address] * (ABNORMAL) Basic metabolic panel (05/17/2024 3:08 PM EDT) Glucose, Plasma 68(L) 74 - 99 mg/dL 05/17/2024 4:07 PM EDT [facility] BUN, Plasma 14 7 - 21 mg/dL 05/17/2024 4:07 PM EDT [facility] Creatinine, Plasma 0.75 0.60 - 1.10 mg/dL 05/17/2024 4:07 PM EDT [facility] BUN/Creatinine Ratio 19 05/17/2024 4:07 PM EDT [facility] Sodium, Plasma 146(H) 136 - 145 mmol/L 05/17/2024 4:07 PM EDT [facility] Potassium, Plasma 4.1 3.6 - 4.9 mmol/L 05/17/2024 4:07 PM EDT [facility] Chloride, Plasma 115(H) 97 - 107 mmol/L 05/17/2024 4:07 PM EDT [facility] CO2, Plasma 17(L) 22 - 29 mmol/L 05/17/2024 4:07 PM EDT [facility] Anion Gap 14 6 - 16 mmol/L 05/17/2024 4:07 PM EDT [facility] Total Calcium, Plasma 7.4(L) 8.9 - 10.2 mg/dL 05/17/2024 4:07 PM EDT [facility] eGFRcr 94.7 mL/min/1.7 3m*2 05/17/2024 4:07 PM EDT [facility] Comment:Reported eGFRcr in m L/min/1.73m2 is based the CKD-EPI 2020 equation that does not use a race coefficient. Blood Venous blood specimen / Unknown Venipuncture / Unknown 05/17/2024 3:08 PM EDT 05/17/2024 3:37 PM EDT us Maite Austin MD LAB BLOOD ORDERABLES Final Resu lt [facility] [address] [place] [address] * (ABNORMAL) TEG Global Hemostasis with Heparinase (05/17/2024 3:08 PM EDT) R 8.7 4.6 - 9.1 min 05/17/2024 3:56 PM EDT [facility] R, Heparinase 7.2 4.3 - 8.3 min 05/17/2024 3:56 PM EDT [facility] K 2.0 0.8 - 2.1 min 05/17/2024 3:56 PM EDT [facility] Angle 72.5 63.0 - 78.0 degrees 05/17/2024 3:56 PM EDT [facility] MA 72.2(H) 52.0 - 69.0 mm 05/17/2024 3:56 PM EDT [facility] MA, Rapid 74.4(H) 52.0 - 70.0 mm 05/17/2024 3:56 PM EDT [facility] MA, Fibrinogen 48.4(H) 15.0 - 32.0 mm 05/17/2024 3:56 PM EDT [facility] FLEV 883.2(H) 278.0 - 581.0 mg/dl 05/17/2024 3:56 PM EDT [facility] Blood Venous blood specimen / Unknown Venipuncture / Unknown 05/17/2024 3:08 PM EDT 05/17/2024 3:26 PM EDT us Maite Austin MD LAB BLOOD ORDERABLES Final Resu lt [facility] [address] [place] [address] * Anti Xa Level Unfractionated Heparin (05/17/2024 3:08 PM EDT) Anti Xa Level Unfractionated Heparin <0.11 <1.00 IU/mL LAB COAGULATION METHOD 05/17/2024 4:06 PM EDT [facility] Blood Venous blood specimen / Unknown Venipuncture / Unknown 05/17/2024 3:08 PM EDT 05/17/2024 3:37 PM EDT Narrative [facility] - 05/17/2024 4:06 PM EDT Therapeutic Range: UFH Full Dose and ACS/MS protocols*: 0.30 - 0.70 IU/mL UFH Low Dose protocol*: 0.25 - 0.50 IU/mL UFH prophylaxis: Not established us Maite Austin MD LAB BLOOD ORDERABLES Final Resu lt Performing Organization Address City/[facility]/ZIP Co de Phone Number [facility] [address] [place] [address] * (ABNORMAL) Protime-INR (05/17/2024 3:08 PM EDT) Prothrombin Time 20.2(H) 12.0 - 14.3 sec LAB COAGULATION METHOD 05/17/2024 4:06 PM EDT [facility] INR 1.7(H) 0.9 - 1.1 LAB COAGULATION METHOD 05/17/2024 4:06 PM EDT [facility] Blood Venous blood specimen / Unknown Venipuncture / Unknown 05/17/2024 3:08 PM EDT 05/17/2024 3:37 PM EDT Narrative [facility] - 05/17/2024 4:06 PM EDT OPTIMAL INR RANGES FOR PATIENT ON ORAL ANTICOAGULANT THERAPY Prevention of venous thromboembolism INR 2.0 to 3.0 In patients with heart disease: Atrial fibrillation INR 2.0 to 3.0 Valvular heart disease INR 2.0 to 3.0 Tissue heart valves INR 2.0 to 3.0 Mechanical prosthetic valves INR 2.5 to 3.5 Prevention of recurrent MS INR 2.5 to 3.5 us Maite Austin MD LAB BLOOD ORDERABLES Final Resu lt [facility] [address] [place] [address] * (ABNORMAL) APTT (05/17/2024 3:08 PM EDT) aPTT 41(H) 25 - 35 sec LAB COAGULATION METHOD 05/17/2024 4:06 PM EDT [facility] Blood Venous blood specimen / Unknown Venipuncture / Unknown 05/17/2024 3:08 PM EDT 05/17/2024 3:37 PM EDT us Maite Austin MD LAB BLOOD ORDERABLES Final Resu lt [facility] [address] [place] [address] * (ABNORMAL) CBC W/O Differential (05/17/2024 3:08 PM EDT) WBC Count 13.08(H) 3.70 - 10.30 10*3/uL LAB HEMATOLOGY METHOD 05/17/2024 4:09 PM EDT [facility] RBC Count 3.56(L) 3.90 - 5.20 10*6/uL LAB HEMATOLOGY METHOD 05/17/2024 4:09 PM EDT [facility] HGB 10.3(L) 11.2 - 15.7 g/dL LAB HEMATOLOGY METHOD 05/17/2024 4:09 PM EDT [facility] HCT 31.9(L) 34.0 - 45.0 % LAB HEMATOLOGY METHOD 05/17/2024 4:09 PM EDT [facility] Platelet Count 615(H) 155 - 369 10*3/uL LAB HEMATOLOGY METHOD 05/17/2024 4:09 PM EDT [facility] MCV 90 79 - 98 fL LAB HEMATOLOGY METHOD 05/17/2024 4:09 PM EDT [facility] MCH 28.9 26.0 - 32.0 pg LAB HEMATOLOGY METHOD 05/17/2024 4:09 PM EDT [facility] MCHC 32.3 30.7 - 35.5 g/dL LAB HEMATOLOGY METHOD 05/17/2024 4:09 PM EDT [facility] RDW 17.1(H) 11.5 - 14.5 % LAB HEMATOLOGY METHOD 05/17/2024 4:09 PM EDT [facility] MPV 10.3 8.8 - 12.5 fL LAB HEMATOLOGY METHOD 05/17/2024 4:09 PM EDT [facility] nRBC 0.2(H) <=0.0 per 100 WBCs LAB HEMATOLOGY METHOD 05/17/2024 4:09 PM EDT [facility] Blood Venous blood specimen / Unknown Venipuncture / Unknown 05/17/2024 3:08 PM EDT 05/17/2024 4:00 PM EDT us Maite Austin MD LAB BLOOD ORDERABLES Final Resu lt Performing Organization Address City/[facility]/ZIP Co de Phone Number [facility] [address] [place] [address] * (ABNORMAL) Magnesium (05/17/2024 3:08 PM EDT) [facility] Magnesium, Plasma 1.8(L) 1.9 - 2.4 mg/dL 05/17/2024 4:07 PM EDT [facility] Blood Venous blood specimen / Unknown Venipuncture / Unknown 05/17/2024 3:08 PM EDT 05/17/2024 3:37 PM EDT us Trinity Yousif APRN LAB BLOOD ORDERABLES Final Res ult Performing Organization Address [facility] Co de Phone Number [facility] [address] [place] [address] * Influenza A,B & Respiratory Syncytial Virus by PCR (05/17/2024 3:08 PM EDT) [facility] Influenza A Virus PCR Result Not Detected Not Detected 05/18/2024 7:52 AM EDT [facility] Influenza B Virus PCR Result Not Detected Not Detected 05/18/2024 7:52 AM EDT [facility] Respiratory Syncytial Virus (RSV) PCR Result Not Detected Not Detected 05/18/2024 7:52 AM EDT [facility] Swab Nasopharyngeal structure / Unknown Non-blood Collection / Unknown 05/17/2024 3:08 PM EDT 05/17/2024 3:25 PM EDT us Dulce Alamo APRN LAB MICROBIOLOGY - GENERAL O RDERABLES Final Result Performing Organization Address City/[facility]/ZIP Co de Phone Number [facility] [address] [place] [address] * (ABNORMAL) Urinalysis with reflex microscopic (Culture NOT Included) (05/17/2024 3:07 PM EDT) Color, Urine Dark Yellow LAB URINALYSIS - AUTOMATED METHOD 05/17/2024 4:19 PM EDT [facility] Clarity, Urine Clear LAB URINALYSIS - AUTOMATED METHOD 05/17/2024 4:19 PM EDT [facility] Spec [place], Urine 1.022 1.005 - 1.030 LAB URINALYSIS - AUTOMATED METHOD 05/17/2024 4:19 PM EDT [facility] pH, Urine 5.5 5.0 - 8.0 LAB URINALYSIS - AUTOMATED METHOD 05/17/2024 4:19 PM EDT [facility] Protein, Urine 30(A) Negative mg/dL LAB URINALYSIS - AUTOMATED METHOD 05/17/2024 4:19 PM EDT [facility] Glucose, Urine Negative Negative mg/dL LAB URINALYSIS - AUTOMATED METHOD 05/17/2024 4:19 PM EDT [facility] Ketones, Urine 40(A) Negative mg/dL LAB URINALYSIS - AUTOMATED METHOD 05/17/2024 4:19 PM EDT [facility] Blood, Urine Negative Negative LAB URINALYSIS - AUTOMATED METHOD 05/17/2024 4:19 PM EDT [facility] Bilirubin, Urine Negative Negative LAB URINALYSIS - AUTOMATED METHOD 05/17/2024 4:19 PM EDT [facility] Urobilinogen, Urine 1.0 0.2 to 1.0 mg/dL LAB URINALYSIS - AUTOMATED METHOD 05/17/2024 4:19 PM EDT [facility] Leukocytes, Urine Negative Negative LAB URINALYSIS - AUTOMATED METHOD 05/17/2024 4:19 PM EDT [facility] Nitrite, Urine Negative Negative LAB URINALYSIS - AUTOMATED METHOD 05/17/2024 4:19 PM EDT [facility] Urine Urine specimen obtained by clean catch procedure / Unknown Non-blood Collection / Unknown 05/17/2024 3:07 PM EDT 05/17/2024 4:00 PM EDT us Maite Austin MD LAB URINE ORDERABLES Final Resu lt Performing Organization Address City/[facility]/ZIP Co de Phone Number [facility] [address] [place] [address] * (ABNORMAL) Urine Culture (05/17/2024 3:07 PM EDT) Culture 100 CFU/mL Normal Urogenital [place](A) 05/18/2024 12:42 PM EDT [facility] Urine Urine specimen obtained by clean catch procedure / Unknown Non-blood Collection / Unknown 05/17/2024 3:07 PM EDT 05/17/2024 3:44 PM EDT us Maite Austin MD LAB MICROBIOLOGY - GENERAL ORDE [facility] Final Result Performing Organization Address [facility]/[place] [address] * Transfuse RBC (05/17/2024 2:46 PM EDT) us Dulce Alamo APRN BLOOD TRANSFUSION ORDERABLES Final Result * Transfuse RBC: 1 Units (05/17/2024 2:46 PM EDT) us Dulce Alamo [employer] BLOOD TRANSFUSION ORDERABLES Final Result * Lactate, venous (05/17/2024 11:16 AM EDT) Lactate, Venous, Whole Blood 1.4 0.5 - 2.2 mmol/L LAB HEMATOLOGY METHOD 05/17/2024 11:29 AM EDT [facility] Blood Venous blood specimen / Unknown Venipuncture / Unknown 05/17/2024 11:16 AM EDT 05/17/2024 11:27 AM EDT us Maite Austin MD LAB BLOOD ORDERABLES Final Resu lt Performing Organization Address [facility]/ZIP Co de Phone Number [facility] [address] [place] [address] * Blood Culture (Aerobic/Anaerobet Set) (05/17/2024 11:16 AM EDT) Culture No growth at day 5 ELI 05/22/2024 12:01 PM EDT [facility] Blood Structure of right wrist region / Unknown Venipuncture / Unknown 05/17/2024 11:16 AM EDT 05/17/2024 11:30 AM EDT us Maite Austin MD LAB MICROBIOLOGY - GENERAL ORDCaden [facility] Final Result [facility] [address] [place] [address] * (ABNORMAL) POCT glucose meter (05/17/2024 10:59 AM EDT) POCT Glucose 68(L) 74 - 99 mg/dL 05/17/2024 11:01 AM EDT [facility] Comment:Accuracy of a glucos e result obtained from a capillary whole blood specimen relies upon adequate, non-compromised capillary blood flow. If the capillary glucose result is not consistent with the patient's clinical signs and symptoms, glucose testing should be repeated with either an arterial or venous sample on the glucometer or sent to the main labortory for testing. Comment 05/17/2024 11:01 AM EDT [facility] Field Hockey Coach ID Shira Grant 05/18/19 11:01 AM EDT [facility] Device ID [id number] 05/17/2024 11:01 AM EDT [facility] Specimen Type POC Capillary 05/17/2024 11:01 AM EDT [facility] Blood Capillary blood specimen / Unknown 05/17/2024 10:59 AM EDT 05/17/2024 11:01 AM EDT us Maite Austin MD LAB POINT OF CARE TE ST DOCKED DEVICE UNSOLICITED RESULTS Final Result [facility] [address] [place] [address] * (ABNORMAL) CBC W/O Differential (05/17/2024 10:29 AM EDT) WBC Count 16.99(H) 3.70 - 10.30 10*3/uL LAB HEMATOLOGY METHOD 05/17/2024 2:07 PM EDT [facility] RBC Count 3.12(L) 3.90 - 5.20 10*6/uL LAB HEMATOLOGY METHOD 05/17/2024 2:07 PM EDT [facility] HGB 9.2(L) 11.2 - 15.7 g/dL LAB HEMATOLOGY METHOD 05/17/2024 2:07 PM EDT [facility] HCT 29.1(L) 34.0 - 45.0 % LAB HEMATOLOGY METHOD 05/17/2024 2:07 PM EDT [facility] Platelet Count 639(H) 155 - 369 10*3/uL LAB HEMATOLOGY METHOD 05/17/2024 2:07 PM EDT [facility] MCV 93 79 - 98 fL LAB HEMATOLOGY METHOD 05/17/2024 2:07 PM EDT [facility] MCH 29.5 26.0 - 32.0 pg LAB HEMATOLOGY METHOD 05/17/2024 2:07 PM EDT [facility] MCHC 31.6 30.7 - 35.5 g/dL LAB HEMATOLOGY METHOD 05/17/2024 2:07 PM EDT [facility] RDW 16.8(H) 11.5 - 14.5 % LAB HEMATOLOGY METHOD 05/17/2024 2:07 PM EDT [facility] MPV 10.8 8.8 - 12.5 fL LAB HEMATOLOGY METHOD 05/17/2024 2:07 PM EDT [facility] nRBC 0.0 <=0.0 per 100 WBCs LAB HEMATOLOGY METHOD 05/17/2024 2:07 PM EDT [facility] Blood Venous blood specimen / Unknown Venipuncture / Unknown 05/17/2024 10:29 AM EDT 05/17/2024 10:29 AM EDT us Trinity Yousif APRN LAB BLOOD ORDERABLES Final Res ult [facility] [address] [place] [address] * (ABNORMAL) WBC Differential (05/17/2024 10:29 AM EDT) Differential Type Automated LAB HEMATOLOGY METHOD 05/17/2024 11:59 AM EDT [facility] Neutrophils % 76 % LAB HEMATOLOGY METHOD 05/17/2024 11:59 AM EDT [facility] Lymphocytes % 10 % LAB HEMATOLOGY METHOD 05/17/2024 11:59 AM EDT [facility] Monocytes % 10 % LAB HEMATOLOGY METHOD 05/17/2024 11:59 AM EDT [facility] Eosinophils % 1 % LAB HEMATOLOGY METHOD 05/17/2024 11:59 AM EDT [facility] Basophils % 0 % LAB HEMATOLOGY METHOD 05/17/2024 11:59 AM EDT [facility] Immature Granulocytes % 3 % LAB HEMATOLOGY METHOD 05/17/2024 11:59 AM EDT [facility] Immature Granulocytes Absolute 0.47(H) 0.00 - 0.06 10*3/uL LAB HEMATOLOGY METHOD 05/17/2024 11:59 AM EDT [facility] Neutrophils Absolute 12.68(H) 1.60 - 6.10 10*3/uL LAB HEMATOLOGY METHOD 05/17/2024 11:59 AM EDT [facility] Lymphocytes Absolute 1.71 1.20 - 3.90 10*3/uL LAB HEMATOLOGY METHOD 05/17/2024 11:59 AM EDT [facility] Monocytes Absolute 1.62(H) 0.30 - 0.90 10*3/uL LAB HEMATOLOGY METHOD 05/17/2024 11:59 AM EDT [facility] Basophils Absolute 0.07 0.00 - 0.10 10*3/uL LAB HEMATOLOGY METHOD 05/17/2024 11:59 AM EDT [facility] Eosinophils Absolute 0.11 0.00 - 0.50 10*3/uL LAB HEMATOLOGY METHOD 05/17/2024 11:59 AM EDT [facility] Blood Venous blood specimen / Unknown Venipuncture / Unknown 05/17/2024 10:29 AM EDT 05/17/2024 10:29 AM EDT us Dulce Alamo APRN LAB BLOOD ORDERABLES Final R esult [facility] [address] [place] [address] * Lavender Top (05/17/2024 10:29 AM EDT) [facility] Extra Hold for add-ons 05/17/2024 1:01 PM EDT [facility] Comment:Auto resulted. Blood Venous blood specimen / Unknown Venipuncture / Unknown 05/17/2024 10:29 AM EDT 05/17/2024 10:29 AM EDT us Maite Austin MD LAB BLOOD ORDERABLES Final Resu lt Performing Organization Address [facility]/ZIP Co de Phone Number [facility] [address] [place] [address] * (ABNORMAL) Lipase (05/17/2024 10:23 AM EDT) [facility] Lipase, Plasma 93(H) 19 - 63 U/L 05/17/2024 2:58 PM EDT [facility] Blood Venous blood specimen / Unknown Venipuncture / Unknown 05/17/2024 10:23 AM EDT 05/17/2024 10:28 AM EDT us Maite Austin MD LAB BLOOD ORDERABLES Final Resu lt Performing Organization Address City/[facility]/ZIP Co de Phone Number [facility] [address] [place] [address] * (ABNORMAL) Comprehensive metabolic panel (05/17/2024 10:23 AM EDT) [facility] Glucose, Plasma 58(L) 74 - 99 mg/dL 05/17/2024 2:08 PM EDT [facility] BUN, Plasma 13 7 - 21 mg/dL 05/17/2024 2:08 PM EDT [facility] Creatinine, Plasma 0.79 0.60 - 1.10 mg/dL 05/17/2024 2:08 PM EDT [facility] BUN/Creatinine Ratio 16 05/17/2024 2:08 PM EDT [facility] Sodium, Plasma 147(H) 136 - 145 mmol/L 05/17/2024 2:08 PM EDT [facility] Potassium, Plasma 4.0 3.6 - 4.9 mmol/L 05/17/2024 2:08 PM EDT [facility] Chloride, Plasma 116(H) 97 - 107 mmol/L 05/17/2024 2:08 PM EDT [facility] CO2, Plasma 14(L) 22 - 29 mmol/L 05/17/2024 2:08 PM EDT [facility] Anion Gap 17(H) 6 - 16 mmol/L 05/17/2024 2:08 PM EDT [facility] Total Calcium, Plasma 7.4(L) 8.9 - 10.2 mg/dL 05/17/2024 2:08 PM EDT [facility] Total Protein 6.1(L) 6.3 - 7.9 g/dL 05/17/2024 2:08 PM EDT [facility] Albumin, Plasma 2.4(L) 3.5 - 5.2 g/dL 05/17/2024 2:08 PM EDT [facility] AST, Plasma 83(H) 10 - 35 U/L 05/17/2024 2:08 PM EDT [facility] ALT, Plasma 37(H) 10 - 35 U/L 05/17/2024 2:08 PM EDT [facility] Alkaline Phosphatase, Plasma 127(H) 35 - 104 U/L 05/17/2024 2:08 PM EDT [facility] Total Bilirubin, Plasma 0.7 0.2 - 1.1 mg/dL 05/17/2024 2:08 PM EDT [facility] eGFRcr 89.0 mL/min/1.7 3m*2 05/17/2024 2:08 PM EDT [facility] Comment:Reported eGFRcr in m L/min/1.73m2 is based the CKD-EPI 2020 equation that does not use a race coefficient. Blood Venous blood specimen / Unknown Venipuncture / Unknown 05/17/2024 10:23 AM EDT 05/17/2024 10:28 AM EDT us Trinity Yousif APRN LAB BLOOD ORDERABLES Final Res ult [facility] [address] [place] [address] * (ABNORMAL) C-reactive protein (05/17/2024 10:23 AM EDT) CRP, Plasma 225.3(H) <=8.0 mg/L 05/17/2024 2:08 PM EDT [facility] Blood Venous blood specimen / Unknown Venipuncture / Unknown 05/17/2024 10:23 AM EDT 05/17/2024 10:28 AM EDT Narrative [facility] - 05/17/2024 2:08 PM EDT This CRP test is appropriate for assessment of infection, systemic inflammation and/or tissue injury. To assess cardiovascular disease risk order high sensitivity CRP (CRPH). us Trinity Yousif [employer] LAB BLOOD ORDERABLES Final Res ult Performing Organization Address City/[facility]/ZIP Co de Phone Number [facility] [address] [place] [address] * (ABNORMAL) Magnesium (05/17/2024 10:23 AM EDT) Magnesium, Plasma 1.8(L) 1.9 - 2.4 mg/dL 05/17/2024 11:05 AM EDT [facility] Blood Venous blood specimen / Unknown Venipuncture / Unknown 05/17/2024 10:23 AM EDT 05/17/2024 10:28 AM EDT us Dulce Alamo [employer] LAB BLOOD ORDERABLES Final R esult [facility] [address] [place] [address] * (ABNORMAL) Basic metabolic panel (05/17/2024 10:23 AM EDT) Glucose, Plasma 69(L) 74 - 99 mg/dL 05/17/2024 11:05 AM EDT [facility] BUN, Plasma 13 7 - 21 mg/dL 05/17/2024 11:05 AM EDT [facility] Creatinine, Plasma 0.77 0.60 - 1.10 mg/dL 05/17/2024 11:05 AM EDT [facility] BUN/Creatinine Ratio 17 05/17/2024 11:05 AM EDT [facility] Sodium, Plasma 150(H) 136 - 145 mmol/L 05/17/2024 11:05 AM EDT [facility] Potassium, Plasma 4.1 3.6 - 4.9 mmol/L 05/17/2024 11:05 AM EDT [facility] Chloride, Plasma 118(H) 97 - 107 mmol/L 05/17/2024 11:05 AM EDT [facility] CO2, Plasma 16(L) 22 - 29 mmol/L 05/17/2024 11:05 AM EDT [facility] Anion Gap 16 6 - 16 mmol/L 05/17/2024 11:05 AM EDT [facility] Total Calcium, Plasma 7.4(L) 8.9 - 10.2 mg/dL 05/17/2024 11:05 AM EDT [facility] eGFRcr 91.8 mL/min/1.7 3m*2 05/17/2024 11:05 AM EDT [facility] Comment:Reported eGFRcr in m L/min/1.73m2 is based the CKD-EPI 2020 equation that does not use a race coefficient. Blood Venous blood specimen / Unknown Venipuncture / Unknown 05/17/2024 10:23 AM EDT 05/17/2024 10:28 AM EDT us Dulce Alamo [employer] LAB BLOOD ORDERABLES Final R esult [facility] [address] [place] [address] * Prepare Leukocyte Reduced RBC: 1 Units (05/17/2024 9:04 AM EDT) Product Code [id number] BLOO D BANK Dispense Status Transfused BLOOD BANK Blood Expiration Date [id number] BLOOD BANK Unit Number [id number] B LOOD BANK Product Blood Type 1700 BLOOD BANK Blood Type B- BLOOD BANK Crossmatch Compatible BLOOD BANK Other us Dulce Alamo APRN BLOOD BANK PRODUCT ORDERABLE S Final Result Performing Organization Address [facility] de Phone Number BLOOD BANK [address] * POCT glucose meter (05/17/2024 6:04 AM EDT) POCT Glucose 78 74 - 99 mg/dL 05/17/2024 6:07 AM EDT [facility] Comment:Accuracy of a glucos e result obtained from a capillary whole blood specimen relies upon adequate, non-compromised capillary blood flow. If the capillary glucose result is not consistent with the patient's clinical signs and symptoms, glucose testing should be repeated with either an arterial or venous sample on the glucometer or sent to the main labortory for testing. Comment 05/17/2024 6:07 AM EDT [facility] Field Hockey Coach ID Leonarda Londono 6:07 AM EDT [facility] Device ID [id number] 05/17/2024 6:07 AM EDT [facility] Specimen Type POC Capillary 05/17/2024 6:07 AM EDT [facility] Blood Capillary blood specimen / Unknown 05/17/2024 6:04 AM EDT 05/17/2024 6:07 AM EDT Maite Austin MD LAB POINT OF CARE TE ST DOCKED DEVICE UNSOLICITED RESULTS Final Result Performing Organization Address City/[facility] Co de Phone Number [facility] [address] [place] [address] * XR Abdomen 1 View (05/17/2024 5:51 AM EDT) Anatomical Region Laterality Modality Body Digital Radiogra phy Impressions 05/17/2024 9:39 AM EDT Slightly increased gas within nondilated small bowel. CRITICAL RESULT: No. COMMUNICATION: Per this written report. Preliminary report signed by Rashi Johnson DO on 05/17/2024 9:17 AM By electronically signing this report, I, the attending physician, attest that I have personally reviewed the images/data for the above examination(s) and agree with the final edited report. Drafted by Rashi Johnson DO on 05/17/2024 9:14 AM Final report signed by Gurdeep Adam MD on 05/17/2024 9:39 AM Narrative 05/17/2024 9:39 AM EDT CLINICAL INDICATION: ileus TECHNIQUE: XR ABDOMEN 1 VIEW COMPARISON: Radiograph 05/16/2024 CT 05/12/2024. FINDINGS: Esophagogastric tube terminates in the proximal stomach. Prior sternotomy. Cholecystectomy clips. Moderate diffuse gas within mildly dilated and nondilated colon.. Moderate gas within nondilated small bowel. No significant change in appearance of the colon. There is now slightly increased gas within nondilated small bowel. No pneumoperitoneum or pneumatosis. Procedure Note Gurdeep Adam MD - 05/17/2024 CLINICAL INDICATION: ileus TECHNIQUE: XR ABDOMEN 1 VIEW COMPARISON: Radiograph 05/16/2024 CT 05/12/2024. FINDINGS: Esophagogastric tube terminates in the proximal stomach. Prior sternotomy.Cholecystectomy clips. Moderate diffuse gas within mildly dilated and nondilated colon.. Moderategas within nondilated small bowel. No significant change in appearance ofthe colon. There is now slightly increased gas within nondilated smallbowel. No pneumoperitoneum or pneumatosis. IMPRESSION: Slightly increased gas within nondilated small bowel. CRITICAL RESULT: No. COMMUNICATION: Per this written report. Preliminary report signed by Rashi Johnson DO on 05/17/2024 9:17 AM By electronically signing this report, I, the attending physician, attestthat I have personally reviewed the images/data for the aboveexamination(s) and agree with the final edited report. Drafted by Rashi Johnson DO on 05/17/2024 9:14 AM Final report signed by Gurdeep Adam MD on 05/17/2024 9:39 AM us [facility] IMG XR PROCEDURES Final Res ult * POCT glucose meter (05/17/2024 2:13 AM EDT) POCT Glucose 81 74 - 99 mg/dL 05/17/2024 2:15 AM EDT [facility] Comment:Accuracy of a glucos e result obtained from a capillary whole blood specimen relies upon adequate, non-compromised capillary blood flow. If the capillary glucose result is not consistent with the patient's clinical signs and symptoms, glucose testing should be repeated with either an arterial or venous sample on the glucometer or sent to the main labortory for testing. Comment 05/17/2024 2:15 AM EDT [facility] Field Hockey Coach ID Yael Dominguez 025 2:15 AM EDT [facility] Device ID [id number] 05/17/2024 2:15 AM EDT [facility] Specimen Type POC Capillary 05/17/2024 2:15 AM EDT [facility] Blood Capillary blood specimen / Unknown 05/17/2024 2:13 AM EDT 05/17/2024 2:15 AM EDT us Maite Austin MD LAB POINT OF CARE TE ST DOCKED DEVICE UNSOLICITED RESULTS Final Result Performing Organization Address City/State/[facility] Co de Phone Number [facility] [address] [place] [address] * POCT glucose meter (05/17/2024 1:03 AM EDT) [facility] POCT Glucose 77 74 - 99 mg/dL 05/17/2024 1:06 AM EDT [facility] Comment:Accuracy of a glucos e result obtained from a capillary whole blood specimen relies upon adequate, non-compromised capillary blood flow. If the capillary glucose result is not consistent with the patient's clinical signs and symptoms, glucose testing should be repeated with either an arterial or venous sample on the glucometer or sent to the main labortory for testing. Comment 05/17/2024 1:06 AM EDT [facility] Field Hockey Coach ID Leonarda Londono 1:06 AM EDT [facility] Device ID [id number] 05/17/2024 1:06 AM EDT [facility] Specimen Type POC Capillary 05/17/2024 1:06 AM EDT [facility] Blood Capillary blood specimen / Unknown 05/17/2024 1:03 AM EDT 05/17/2024 1:06 AM EDT us Maite Austin MD LAB POINT OF CARE TE ST DOCKED DEVICE UNSOLICITED RESULTS Final Result Performing Organization Address City/[facility]/ZIP Co de Phone Number [facility] [address] [place] [address] * (ABNORMAL) POCT glucose meter (05/16/2024 11:58 PM EDT) Pathologist [facility] POCT Glucose 63(L) 74 - 99 mg/dL 05/16/2024 11:59 PM EDT [facility] Comment:Accuracy of a glucos e result obtained from a capillary whole blood specimen relies upon adequate, non-compromised capillary blood flow. If the capillary glucose result is not consistent with the patient's clinical signs and symptoms, glucose testing should be repeated with either an arterial or venous sample on the glucometer or sent to the main labortory for testing. Comment 05/16/2024 11:59 PM EDT [facility] Field Hockey Coach ID Yael Dominguez 025 11:59 PM EDT [facility] Device ID [id number] 05/16/2024 11:59 PM EDT [facility] Specimen Type POC Capillary 05/16/2024 11:59 PM EDT [facility] Blood Capillary blood specimen / Unknown 05/16/2024 11:58 PM EDT 05/16/2024 11:59 PM EDT Maite Austin MD LAB POINT OF CARE TE ST DOCKED DEVICE UNSOLICITED RESULTS Final Result Performing Organization Address City/[facility]/ZIP Co de Phone Number [facility] [address] [place] [address] * POCT glucose meter (05/16/2024 5:47 PM EDT) [facility] POCT Glucose 80 74 - 99 mg/dL 05/16/2024 5:49 PM EDT [facility] Comment:Accuracy of a glucos e result obtained from a capillary whole blood specimen relies upon adequate, non-compromised capillary blood flow. If the capillary glucose result is not consistent with the patient's clinical signs and symptoms, glucose testing should be repeated with either an arterial or venous sample on the glucometer or sent to the main labortory for testing. Comment 05/16/2024 5:49 PM EDT [facility] Field Hockey Coach ID Cristel Chen 5:49 PM EDT [facility] Device ID [id number] 05/16/2024 5:49 PM EDT [facility] Specimen Type POC Capillary 05/16/2024 5:49 PM EDT [facility] Blood Capillary blood specimen / Unknown 05/16/2024 5:47 PM EDT 05/16/2024 5:49 PM EDT Maite Austin MD LAB POINT OF CARE TE ST DOCKED DEVICE UNSOLICITED RESULTS Final Result Performing Organization Address City/[facility] Co de Phone Number [facility] [address] [place] [address] * POCT glucose meter (05/16/2024 12:10 PM EDT) [facility] POCT Glucose 91 74 - 99 mg/dL 05/16/2024 12:11 PM EDT [facility] Comment:Accuracy of a glucos e result obtained from a capillary whole blood specimen relies upon adequate, non-compromised capillary blood flow. If the capillary glucose result is not consistent with the patient's clinical signs and symptoms, glucose testing should be repeated with either an arterial or venous sample on the glucometer or sent to the main labortory for testing. Comment 05/16/2024 12:11 PM EDT [facility] Field Hockey Coach ID Amanda Miller 025 12:11 PM EDT [facility] Device ID [id number] 05/16/2024 12:11 PM EDT [facility] Specimen Type POC Capillary 05/16/2024 12:11 PM EDT [facility] Blood Capillary blood specimen / Unknown 05/16/2024 12:10 PM EDT 05/16/2024 12:11 PM EDT Maite Austin MD LAB POINT OF CARE TE ST DOCKED DEVICE UNSOLICITED RESULTS Final Result Performing Organization Address City/[facility]/ZIP Co de Phone Number [facility] [address] [place] [address] * Potassium (05/16/2024 12:05 PM EDT) [facility] Potassium, Plasma 4.1 3.6 - 4.9 mmol/L 05/16/2024 2:03 PM EDT [facility] Blood Venous blood specimen / Unknown Venipuncture / Unknown 05/16/2024 12:05 PM EDT 05/16/2024 12:48 PM EDT us Uriah PHILLIP LAB BLOOD ORDERABLES Final Result [facility] [address] [place] [address] * (ABNORMAL) POCT glucose meter (05/16/2024 5:28 AM EDT) POCT Glucose 100(H) 74 - 99 mg/dL 05/16/2024 5:30 AM EDT [facility] Comment:Accuracy of a glucos e result obtained from a capillary whole blood specimen relies upon adequate, non-compromised capillary blood flow. If the capillary glucose result is not consistent with the patient's clinical signs and symptoms, glucose testing should be repeated with either an arterial or venous sample on the glucometer or sent to the main labortory for testing. Comment 05/16/2024 5:30 AM EDT [facility] Field Hockey Coach ID Tiana Miller 05/17/19 5:30 AM EDT [facility] Device ID [id number] 05/16/2024 5:30 AM EDT [facility] Specimen Type POC Capillary 05/16/2024 5:30 AM EDT [facility] Blood Capillary blood specimen / Unknown 05/16/2024 5:28 AM EDT 05/16/2024 5:30 AM EDT us Maite Austin MD LAB POINT OF CARE TE ST DOCKED DEVICE UNSOLICITED RESULTS Final Result [facility] [address] [place] [address] * Magnesium (05/16/2024 3:20 AM EDT) Magnesium, Plasma 2.0 1.9 - 2.4 mg/dL 05/16/2024 3:58 AM EDT [facility] Blood Venous blood specimen / Unknown Venipuncture / Unknown 05/16/2024 3:20 AM EDT 05/16/2024 3:26 AM EDT us Trinity Yousif [employer] [facility] BLOOD ORDERABLES Final Res ult [facility] [address] [place] [address] * (ABNORMAL) Comprehensive metabolic panel (05/16/2024 3:20 AM EDT) Pathologist [facility] Glucose, Plasma 99 74 - 99 mg/dL 05/16/2024 3:58 AM EDT [facility] BUN, Plasma 13 7 - 21 mg/dL 05/16/2024 3:58 AM EDT [facility] Creatinine, Plasma 0.91 0.60 - 1.10 mg/dL 05/16/2024 3:58 AM EDT [facility] BUN/Creatinine Ratio 14 05/16/2024 3:58 AM EDT [facility] Sodium, Plasma 144 136 - 145 mmol/L 05/16/2024 3:58 AM EDT [facility] Potassium, Plasma 3.5(L) 3.6 - 4.9 mmol/L 05/16/2024 3:58 AM EDT [facility] Chloride, Plasma 114(H) 97 - 107 mmol/L 05/16/2024 3:58 AM EDT [facility] CO2, Plasma 21(L) 22 - 29 mmol/L 05/16/2024 3:58 AM EDT [facility] Anion Gap 9 6 - 16 mmol/L 05/16/2024 3:58 AM EDT [facility] Total Calcium, Plasma 7.4(L) 8.9 - 10.2 mg/dL 05/16/2024 3:58 AM EDT [facility] Total Protein 5.5(L) 6.3 - 7.9 g/dL 05/16/2024 3:58 AM EDT [facility] Albumin, Plasma 2.2(L) 3.5 - 5.2 g/dL 05/16/2024 3:58 AM EDT [facility] AST, Plasma 60(H) 10 - 35 U/L 05/16/2024 3:58 AM EDT [facility] ALT, Plasma 19 10 - 35 U/L 05/16/2024 3:58 AM EDT [facility] Alkaline Phosphatase, Plasma 121(H) 35 - 104 U/L 05/16/2024 3:58 AM EDT [facility] Total Bilirubin, Plasma 0.6 0.2 - 1.1 mg/dL 05/16/2024 3:58 AM EDT [facility] eGFRcr 75.1 mL/min/1.7 3m*2 05/16/2024 3:58 AM EDT [facility] Comment:Reported eGFRcr in m L/min/1.73m2 is based the CKD-EPI 2020 equation that does not use a race coefficient. Blood Venous blood specimen / Unknown Venipuncture / Unknown 05/16/2024 3:20 AM EDT 05/16/2024 3:26 AM EDT Trinity [facility] [employer] [facility] BLOOD ORDERABLES Final Res ult [facility] [address] [place] [address] * (ABNORMAL) Hemogram (CBC) (05/16/2024 3:20 AM EDT) WBC Count 20.02(H) 3.70 - 10.30 10*3/uL LAB HEMATOLOGY METHOD 05/16/2024 3:38 AM EDT [facility] RBC Count 3.02(L) 3.90 - 5.20 10*6/uL LAB HEMATOLOGY METHOD 05/16/2024 3:38 AM EDT [facility] HGB 8.8(L) 11.2 - 15.7 g/dL LAB HEMATOLOGY METHOD 05/16/2024 3:38 AM EDT [facility] HCT 27.6(L) 34.0 - 45.0 % LAB HEMATOLOGY METHOD 05/16/2024 3:38 AM EDT [facility] Platelet Count 480(H) 155 - 369 10*3/uL LAB HEMATOLOGY METHOD 05/16/2024 3:38 AM EDT [facility] MCV 91 79 - 98 fL LAB HEMATOLOGY METHOD 05/16/2024 3:38 AM EDT [facility] MCH 29.1 26.0 - 32.0 pg LAB HEMATOLOGY METHOD 05/16/2024 3:38 AM EDT [facility] MCHC 31.9 30.7 - 35.5 g/dL LAB HEMATOLOGY METHOD 05/16/2024 3:38 AM EDT [facility] RDW 17.1(H) 11.5 - 14.5 % LAB HEMATOLOGY METHOD 05/16/2024 3:38 AM EDT [facility] MPV 10.4 8.8 - 12.5 fL LAB HEMATOLOGY METHOD 05/16/2024 3:38 AM EDT [facility] nRBC 0.2(H) <=0.0 per 100 WBCs LAB HEMATOLOGY METHOD 05/16/2024 3:38 AM EDT [facility] Blood Venous blood specimen / Unknown Venipuncture / Unknown 05/16/2024 3:20 AM EDT 05/16/2024 3:26 AM EDT us Trinity Yousif [employer] LAB BLOOD ORDERABLES Final Res ult Performing Organization Address City/State/[facility] Co de Phone Number [facility] [address] [place] [address] * XR Abdomen 1 View (05/16/2024 2:40 AM EDT) Anatomical Region Laterality Modality Body Digital Radiogra phy Impressions 05/16/2024 7:55 AM EDT No significant change in bowel gas pattern. CRITICAL RESULT: No. COMMUNICATION: Per this written report. Drafted by Gurdeep Adam MD on 05/16/2024 7:52 AM Final report signed by Gurdeep Adam MD on 05/16/2024 7:55 AM Narrative 05/16/2024 7:55 AM EDT CLINICAL INDICATION: Evaluate ileus TECHNIQUE: XR ABDOMEN 1 VIEW COMPARISON: Abdomen image 05/15/2024. FINDINGS: There is moderate gas within nondilated and mildly dilated colon. There is limited gas within borderline dilated and nondilated small bowel. No pneumatosis or pneumoperitoneum. No significant change in bowel gas pattern. NG tube tip proximal stomach.. No acute bony findings. Visualized lower chest unchanged. Procedure Note Gurdeep Adam MD - 05/16/2024 CLINICAL INDICATION: Evaluate ileus TECHNIQUE: XR ABDOMEN 1 VIEW COMPARISON: Abdomen image 05/15/2024. FINDINGS: There is moderate gas within nondilated and mildly dilated colon. There islimited gas within borderline dilated and nondilated small bowel. Nopneumatosis or pneumoperitoneum. No significant change in bowel gaspattern. NG tube tip proximal stomach.. No acute bony findings. Visualized lower chest unchanged. IMPRESSION: No significant change in bowel gas pattern. CRITICAL RESULT: No. COMMUNICATION: Per this written report. Drafted by Gurdeep Adam MD on 05/16/2024 7:52 AM Final report signed by Gurdeep Adam MD on 05/16/2024 7:55 AM Trinity Dayana Yousif [employer] [facility] XR PROCEDURES Final Result * XR Chest 1 View (05/16/2024 2:37 AM EDT) Anatomical Region Laterality Modality Chest Digital Radiogra phy Impressions 05/16/2024 10:33 AM EDT No significant interval change. CRITICAL RESULT: No. COMMUNICATION: Per this written report. By electronically signing this report, I, the attending physician, attest that I have personally reviewed the images/data for the above examination(s) and agree with the final edited report. Drafted by Sanya Urbano MD on 05/16/2024 8:42 AM Final report signed by Adarsh Richardson MD on 05/16/2024 10:33 AM Narrative 05/16/2024 10:33 AM EDT CLINICAL INDICATION: Evaluate lung keene TECHNIQUE: XR CHEST 1 VIEW COMPARISON: Chest radiograph 05/14/2024 FINDINGS: Support hardware projects in unchanged and appropriate position. Median sternotomy wires are intact. The cardiac silhouette and mediastinal contours are stable. No focal consolidation, significant pleural effusion, or pneumothorax. No acute osseous findings. Procedure Note Adarsh Richardson MD - 05/16/2024 CLINICAL INDICATION: Evaluate lung keene TECHNIQUE: XR CHEST 1 VIEW COMPARISON: Chest radiograph 05/14/2024 FINDINGS: Support hardware projects in unchanged and appropriate position. Mediansternotomy wires are intact. The cardiac silhouette and mediastinalcontours are stable. No focal consolidation, significant pleural effusion,or pneumothorax. No acute osseous findings. IMPRESSION: No significant interval change. CRITICAL RESULT: No. COMMUNICATION: Per this written report. By electronically signing this report, I, the attending physician, attestthat I have personally reviewed the images/data for the aboveexamination(s) and agree with the final edited report. Drafted by Sanya Urbano MD on 05/16/2024 8:42 AM Final report signed by Adarsh Richardson MD on 05/16/2024 10:33 AM Trinity [facility] [employer] [facility] XR PROCEDURES Final Result * (ABNORMAL) POCT glucose meter (05/16/2024 12:48 AM EDT) POCT Glucose 125(H) 74 - 99 mg/dL 05/16/2024 12:50 AM EDT [facility] Comment:Accuracy of a glucos e result obtained from a capillary whole blood specimen relies upon adequate, non-compromised capillary blood flow. If the capillary glucose result is not consistent with the patient's clinical signs and symptoms, glucose testing should be repeated with either an arterial or venous sample on the glucometer or sent to the main labortory for testing. Comment 05/16/2024 12:50 AM EDT [facility] Field Hockey Coach ID Tiana Miller 05/17/19 25 12:50 AM EDT [facility] Device ID [id number] 05/16/2024 12:50 AM EDT [facility] Specimen Type POC Capillary 05/16/2024 12:50 AM EDT [facility] Blood Capillary blood specimen / Unknown 05/16/2024 12:48 AM EDT 05/16/2024 12:50 AM EDT aMite Austin MD LAB POINT OF CARE TE ST DOCKED DEVICE UNSOLICITED RESULTS Final Result [facility] [address] [place] [address] * (ABNORMAL) POCT glucose meter (05/15/2024 11:38 AM EDT) Pathologist [facility] POCT Glucose 102(H) 74 - 99 mg/dL 05/15/2024 11:41 AM EDT [facility] Comment:Accuracy of a glucos e result obtained from a capillary whole blood specimen relies upon adequate, non-compromised capillary blood flow. If the capillary glucose result is not consistent with the patient's clinical signs and symptoms, glucose testing should be repeated with either an arterial or venous sample on the glucometer or sent to the main labortory for testing. Comment 05/15/2024 11:41 AM EDT [facility] Field Hockey Coach ID Jame Okeefe 05/15/2024 11:41 AM EDT [facility]ALTH[facility] LAB Device ID [id number] 05/15/2024 11:41 AM EDT [facility] Specimen Type POC Capillary 05/15/2024 11:41 AM EDT [facility] Blood Capillary blood specimen / Unknown 05/15/2024 11:38 AM EDT 05/15/2024 11:41 AM EDT us Maite Austin MD LAB POINT OF CARE TE ST DOCKED DEVICE UNSOLICITED RESULTS Final Result Performing Organization Address City/State/[facility] Co de Phone Number [facility] [address] [place] [address] * (ABNORMAL) POCT glucose meter (05/15/2024 5:11 AM EDT) Pathologist [facility] POCT Glucose 108(H) 74 - 99 mg/dL 05/15/2024 5:12 AM EDT [facility] Comment:Accuracy of a glucos e result obtained from a capillary whole blood specimen relies upon adequate, non-compromised capillary blood flow. If the capillary glucose result is not consistent with the patient's clinical signs and symptoms, glucose testing should be repeated with either an arterial or venous sample on the glucometer or sent to the main labortory for testing. Comment 05/15/2024 5:12 AM EDT [facility] Field Hockey Coach ID Betty Young 025 5:12 AM EDT [facility] Device ID [id number] 05/15/2024 5:12 AM EDT [facility] Specimen Type POC Capillary 05/15/2024 5:12 AM EDT [facility] Blood Capillary blood specimen / Unknown 05/15/2024 5:11 AM EDT 05/15/2024 5:12 AM EDT us Maite Austin MD LAB POINT OF CARE TE ST DOCKED DEVICE UNSOLICITED RESULTS Final Result [facility] [address] [place] [address] * XR Abdomen 1 View (05/15/2024 2:56 AM EDT) Anatomical Region Laterality Modality Body Digital Radiogra phy Impressions 05/15/2024 9:01 AM EDT No significant change in ileus since 05/14/2024. CRITICAL RESULT: No. COMMUNICATION: Per this written report. Drafted by Cass Stoll DO on 05/15/2024 8:59 AM Final report signed by Cass Stoll DO on 05/15/2024 9:01 AM Narrative 05/15/2024 9:01 AM EDT CLINICAL INDICATION: persistent ileus TECHNIQUE: XR ABDOMEN 1 VIEW COMPARISON: 05/14/2024 FINDINGS: Nasogastric tube tip in the proximal stomach. No significant change in gaseous small bowel dilation from the prior exam. A loop of bowel are seen in the midline abdomen may represent small bowel or the transverse colon. No definite pneumoperitoneum. Mild bibasilar atelectasis. Procedure Note Cass Stoll DO - 05/15/2024 CLINICAL INDICATION: persistent ileus TECHNIQUE: XR ABDOMEN 1 VIEW COMPARISON: 05/14/2024 FINDINGS: Nasogastric tube tip in the proximal stomach. No significant change ingaseous small bowel dilation from the prior exam. A loop of bowel are seenin the midline abdomen may represent small bowel or the transverse colon.No definite pneumoperitoneum. Mild bibasilar atelectasis. IMPRESSION: No significant change in ileus since 05/14/2024. CRITICAL RESULT: No. COMMUNICATION: Per this written report. Drafted by Cass Stoll DO on 05/15/2024 8:59 AM Final report signed by Cass Stoll DO on 05/15/2024 9:01 AM us Maite Austin MD IMG XR PROCEDURES Final Result * (ABNORMAL) Comprehensive metabolic panel (05/15/2024 1:13 AM EDT) Glucose, Plasma 99 74 - 99 mg/dL 05/15/2024 2:14 AM EDT [facility] BUN, Plasma 17 7 - 21 mg/dL 05/15/2024 2:14 AM EDT [facility] Creatinine, Plasma 0.90 0.60 - 1.10 mg/dL 05/15/2024 2:14 AM EDT [facility] BUN/Creatinine Ratio 19 05/15/2024 2:14 AM EDT [facility] Sodium, Plasma 145 136 - 145 mmol/L 05/15/2024 2:14 AM EDT [facility] Potassium, Plasma 3.3(L) 3.6 - 4.9 mmol/L 05/15/2024 2:14 AM EDT [facility] Chloride, Plasma 111(H) 97 - 107 mmol/L 05/15/2024 2:14 AM EDT [facility] CO2, Plasma 22 22 - 29 mmol/L 05/15/2024 2:14 AM EDT [facility] Anion Gap 12 6 - 16 mmol/L 05/15/2024 2:14 AM EDT [facility] Total Calcium, Plasma 7.3(L) 8.9 - 10.2 mg/dL 05/15/2024 2:14 AM EDT [facility] Total Protein 5.7(L) 6.3 - 7.9 g/dL 05/15/2024 2:14 AM EDT [facility] Albumin, Plasma 2.4(L) 3.5 - 5.2 g/dL 05/15/2024 2:14 AM EDT [facility] AST, Plasma 68(H) 10 - 35 U/L 05/15/2024 2:14 AM EDT [facility] ALT, Plasma 20 10 - 35 U/L 05/15/2024 2:14 AM EDT [facility] Alkaline Phosphatase, Plasma 129(H) 35 - 104 U/L 05/15/2024 2:14 AM EDT [facility] Total Bilirubin, Plasma 1.0 0.2 - 1.1 mg/dL 05/15/2024 2:14 AM EDT [facility] eGFRcr 76.1 mL/min/1.7 3m*2 05/15/2024 2:14 AM EDT [facility] Comment:Reported eGFRcr in m L/min/1.73m2 is based the CKD-EPI 2020 equation that does not use a race coefficient. Blood Venous blood specimen / Unknown Venipuncture / Unknown 05/15/2024 1:13 AM EDT 05/15/2024 1:20 AM EDT us Maite Austin MD LAB BLOOD ORDERABLES Final Resu lt Performing Organization Address City/[facility]/ZIP Co de Phone Number [facility] [address] [place] [address] * Phosphorus (05/15/2024 1:13 AM EDT) Phosphorus, Plasma 3.9 2.5 - 4.5 mg/dL 05/15/2024 2:14 AM EDT [facility] Blood Venous blood specimen / Unknown Venipuncture / Unknown 05/15/2024 1:13 AM EDT 05/15/2024 1:20 AM EDT us Maite Austin MD LAB BLOOD ORDERABLES Final Resu lt [facility] [address] [place] [address] * Magnesium (05/15/2024 1:13 AM EDT) Magnesium, Plasma 1.9 1.9 - 2.4 mg/dL 05/15/2024 2:14 AM EDT [facility] Blood Venous blood specimen / Unknown Venipuncture / Unknown 05/15/2024 1:13 AM EDT 05/15/2024 1:20 AM EDT us Maite Austin MD LAB BLOOD ORDERABLES Final Resu lt [facility] [address] [place] [address] * (ABNORMAL) CBC W/O Differential (05/15/2024 1:13 AM EDT) WBC Count 28.49(H) 3.70 - 10.30 10*3/uL LAB HEMATOLOGY METHOD 05/15/2024 3:22 AM EDT [facility] RBC Count 3.02(L) 3.90 - 5.20 10*6/uL LAB HEMATOLOGY METHOD 05/15/2024 3:22 AM EDT [facility] HGB 8.9(L) 11.2 - 15.7 g/dL LAB HEMATOLOGY METHOD 05/15/2024 3:22 AM EDT [facility] HCT 26.5(L) 34.0 - 45.0 % LAB HEMATOLOGY METHOD 05/15/2024 3:22 AM EDT [facility] Platelet Count 402(H) 155 - 369 10*3/uL LAB HEMATOLOGY METHOD 05/15/2024 3:22 AM EDT [facility] MCV 88 79 - 98 fL LAB HEMATOLOGY METHOD 05/15/2024 3:22 AM EDT [facility] MCH 29.5 26.0 - 32.0 pg LAB HEMATOLOGY METHOD 05/15/2024 3:22 AM EDT [facility] MCHC 33.6 30.7 - 35.5 g/dL LAB HEMATOLOGY METHOD 05/15/2024 3:22 AM EDT [facility] RDW 16.5(H) 11.5 - 14.5 % LAB HEMATOLOGY METHOD 05/15/2024 3:22 AM EDT [facility] MPV 10.7 8.8 - 12.5 fL LAB HEMATOLOGY METHOD 05/15/2024 3:22 AM EDT [facility] nRBC 0.7(H) <=0.0 per 100 WBCs LAB HEMATOLOGY METHOD 05/15/2024 3:22 AM EDT [facility] Blood Venous blood specimen / Unknown Venipuncture / Unknown 05/15/2024 1:13 AM EDT 05/15/2024 1:20 AM EDT us Maite Austin MD LAB BLOOD ORDERABLES Final Resu lt [facility] [address] [place] [address] * WBC Differential (05/15/2024 1:13 AM EDT) Differential Type LAB HEMATOLOGY METHOD 05/15/2024 3:21 AM EDT [facility] Neutrophils % LAB HEMATOLOGY METHOD 05/15/2024 3:21 AM EDT [facility] Lymphocytes % LAB HEMATOLOGY METHOD 05/15/2024 3:21 AM EDT [facility] Monocytes % LAB HEMATOLOGY METHOD 05/15/2024 3:21 AM EDT [facility] Eosinophils % LAB HEMATOLOGY METHOD 05/15/2024 3:21 AM EDT [facility] Basophils % LAB HEMATOLOGY METHOD 05/15/2024 3:21 AM EDT [facility] Immature Granulocytes % LAB HEMATOLOGY METHOD 05/15/2024 3:21 AM EDT [facility] Immature Granulocytes Absolute LAB HEMATOLOGY METHOD 05/15/2024 3:21 AM EDT [facility] Neutrophils Absolute LAB HEMATOLOGY METHOD 05/15/2024 3:21 AM EDT [facility] Lymphocytes Absolute LAB HEMATOLOGY METHOD 05/15/2024 3:21 AM EDT [facility] Monocytes Absolute LAB HEMATOLOGY METHOD 05/15/2024 3:21 AM EDT [facility] Basophils Absolute LAB HEMATOLOGY METHOD 05/15/2024 3:21 AM EDT [facility] Eosinophils Absolute LAB HEMATOLOGY METHOD 05/15/2024 3:21 AM EDT [facility] Blood Venous blood specimen / Unknown Venipuncture / Unknown 05/15/2024 1:13 AM EDT 05/15/2024 1:20 AM EDT us Lora Llanes APRN LAB BLOOD ORDERABLES Final Result [facility] [address] [place] [address] * (ABNORMAL) POCT glucose meter (05/14/2024 6:04 PM EDT) POCT Glucose 145(H) 74 - 99 mg/dL 05/14/2024 6:06 PM EDT [facility] Comment:Accuracy of a glucos e result obtained from a capillary whole blood specimen relies upon adequate, non-compromised capillary blood flow. If the capillary glucose result is not consistent with the patient's clinical signs and symptoms, glucose testing should be repeated with either an arterial or venous sample on the glucometer or sent to the main labortory for testing. Comment 05/14/2024 6:06 PM EDT [facility] Field Hockey Coach ID Jazmyne Malone 6:06 PM EDT [facility] Device ID [id number] 05/14/2024 6:06 PM EDT [facility] Specimen Type POC Capillary 05/14/2024 6:06 PM EDT [facility] Blood Capillary blood specimen / Unknown 05/14/2024 6:04 PM EDT 05/14/2024 6:06 PM EDT us Maite Austin MD LAB POINT OF CARE TE ST DOCKED DEVICE UNSOLICITED RESULTS Final Result Performing Organization Address City/State/[facility] Co de Phone Number [facility] [address] [place] [address] * Transfuse RBC (05/14/2024 3:26 PM EDT) Result Anastasiia Austin MD BLOOD TRANSFUSION ORDERABLES Fi nal Result * Transfuse RBC: 1 Units (05/14/2024 3:26 PM EDT) us Maite Austin MD BLOOD TRANSFUSION ORDERABLES Fi nal Result * POCT glucose meter (05/14/2024 12:10 PM EDT) [facility] POCT Glucose 94 74 - 99 mg/dL 05/14/2024 12:11 PM EDT [facility] Comment:Accuracy of a glucos e result obtained from a capillary whole blood specimen relies upon adequate, non-compromised capillary blood flow. If the capillary glucose result is not consistent with the patient's clinical signs and symptoms, glucose testing should be repeated with either an arterial or venous sample on the glucometer or sent to the main labortory for testing. Comment 05/14/2024 12:11 PM EDT [facility] Field Hockey Coach ID Jazmyne Malone 12:11 PM EDT [facility] Device ID [id number] 05/14/2024 12:11 PM EDT [facility] Specimen Type POC Venous 05/14/2024 12:11 PM EDT [facility] Blood Venous blood specimen / Unknown 05/14/2024 12:10 PM EDT 05/14/2024 12:11 PM EDT Maite Austin MD LAB POINT OF CARE TE ST DOCKED DEVICE UNSOLICITED RESULTS Final Result Performing Organization Address City/[facility]/ZIP Co de Phone Number [facility]ARE [facility] [address] [place] [address] * Type and screen (05/14/2024 12:10 PM EDT) ABO/Rh B Positive 05/14/2024 12:02 PM EDT BLOOD BANK Antibody Screen Negative 05/14/2024 12:02 PM EDT BLO[facility] BANK Specimen Expiration 05/17/2024 23:59 05/14/2024 12:02 PM EDT [facility] Blood Venous blood specimen / Unknown Venipuncture / Unknown 05/14/2024 12:10 PM EDT 05/14/2024 12:25 PM EDT us Maite Austin MD LAB BLOOD BANK TEST ORDERABLES Final Result Performing Organization Address [facility]/ZIP Co de Phone Number BLOOD BANK [address] [place] [address], * (ABNORMAL) Ferritin (05/14/2024 12:10 PM EDT) Ferritin, Serum 1,271(H) 13 - 150 ng/mL 05/14/2024 1:05 PM EDT [facility] Blood Venous blood specimen / Unknown Venipuncture / Unknown 05/14/2024 12:10 PM EDT 05/14/2024 12:22 PM EDT us Maite Austin MD LAB BLOOD ORDERABLES Final Resu lt Performing Organization Address City/[facility]/ZIP Co de Phone Number [facility] [address] [place] [address] * (ABNORMAL) Iron & Total Iron Binding Capacity, Plasma (Includes Transferrin) (05/14/2024 12:10 PM EDT) Iron, Plasma 25(L) 30 - 160 ug/dL 05/14/2024 1:01 PM EDT [facility] Transferrin, Plasma 125(L) 200 - 360 mg/dL 05/14/2024 1:01 PM EDT [facility] Total Iron Binding Capacity, Plasma 156(L) 240 - 450 ug/mL 05/14/2024 1:01 PM EDT [facility] Transferrin Saturation 16 14 - 50 % 05/14/2024 1:01 PM EDT [facility] Blood Venous blood specimen / Unknown Venipuncture / Unknown 05/14/2024 12:10 PM EDT 05/14/2024 12:22 PM EDT us Maite Austin MD LAB BLOOD ORDERABLES Final Resu lt Performing Organization Address [facility] Co de Phone Number [facility] [address] [place] [address] * Prepare Leukocyte Reduced RBC: 1 Units (05/14/2024 12:02 PM EDT) Product Code [id number] CH BLOO D BANK Dispense Status Transfused BLOOD BANK Blood Expiration Date [id number] BLOOD BANK Unit Number [id number] CH B LOOD BANK Product Blood Type 7300 BLOOD BANK Blood Type B+ BLOOD BANK Crossmatch Compatible BLOOD BANK Other us Maite Austin MD BLOOD BANK PRODUCT ORDERABLES F inal Result Performing Organization Address City/[facility]/ZIP Co de Phone Number BLOOD BANK [address] [place] [address], [place] * XR Abdomen 1 View (05/14/2024 9:50 AM EDT) Anatomical Region Laterality Modality Body Digital Radiogra phy Impressions 05/14/2024 3:00 PM EDT Persistent ileus. CRITICAL RESULT: No. COMMUNICATION: Per this written report. By electronically signing this report, I, the attending physician, attest that I have personally reviewed the images/data for the above examination(s) and agree with the final edited report. Drafted by Dulce Florez DO on 05/14/2024 9:59 AM Final report signed by Zamzam Banda MD on 05/14/2024 3:00 PM Narrative 05/14/2024 3:00 PM EDT CLINICAL INDICATION: ileus TECHNIQUE: XR ABDOMEN 1 VIEW COMPARISON: May 13, 2024 abdominal radiograph FINDINGS: Similar dilatation of the small bowel in the midabdomen. The loop measuring 5.4 cm is difficult to localize, could represent borderline caliber transverse colon versus markedly dilated loop of small bowel. Surgical clips in the right upper quadrant. No pneumatosis. No free gas. Hardware stable. No suspicious osseous findings. Visualized portions of the lungs are clear. Procedure Note Zamzam Banda MD - 05/14/2024 CLINICAL INDICATION: ileus TECHNIQUE: XR ABDOMEN 1 VIEW COMPARISON: May 13, 2024 abdominal radiograph FINDINGS: Similar dilatation of the small bowel in the midabdomen. The loopmeasuring 5.4 cm is difficult to localize, could represent borderlinecaliber transverse colon versus markedly dilated loop of small bowel.Surgical clips in the right upper quadrant. No pneumatosis. No free gas.Hardware stable. No suspicious osseous findings. Visualized portions ofthe lungs are clear. IMPRESSION: Persistent ileus. CRITICAL RESULT: No. COMMUNICATION: Per this written report. By electronically signing this report, I, the attending physician, attestthat I have personally reviewed the images/data for the aboveexamination(s) and agree with the final edited report. Drafted by Dulce Florez DO on 05/14/2024 9:59 AM Final report signed by Zamzam Banda MD on 05/14/2024 3:00 PM us Maite Austin MD IMG XR PROCEDURES Final Result * XR Chest 1 View (05/14/2024 9:50 AM EDT) Anatomical Region Laterality Modality Chest Digital Radiogra phy Impressions 05/14/2024 10:52 AM EDT Stable exam CRITICAL RESULT: No. COMMUNICATION: Per this written report. Drafted by Edson Ambrose MD on 05/14/2024 10:51 AM Final report signed by Edson Ambrose MD on 05/14/2024 10:52 AM Narrative 05/14/2024 10:52 AM EDT CLINICAL INDICATION: s/p cardiac surgery TECHNIQUE: XR CHEST 1 VIEW COMPARISON: May 13, 2024 FINDINGS: Stable basilar atelectasis. No edema or consolidation. Small left effusion. No pneumothorax. NG tube remains in place. Procedure Note Edson Ambrose MD - 05/14/2024 CLINICAL INDICATION: s/p cardiac surgery TECHNIQUE: XR CHEST 1 VIEW COMPARISON: May 13, 2024 FINDINGS: Stable basilar atelectasis. No edema or consolidation. Small lefteffusion. No pneumothorax. NG tube remains in place. IMPRESSION: Stable exam CRITICAL RESULT: No. COMMUNICATION: Per this written report. Drafted by Edson Ambrose MD on 05/14/2024 10:51 AM Final report signed by Edson Ambrose MD on 05/14/2024 10:52 AM Maite Austin MD IMG XR PROCEDURES Final Result * Phosphorus (05/14/2024 3:35 AM EDT) Phosphorus, Plasma 3.6 2.5 - 4.5 mg/dL 05/14/2024 4:52 AM EDT [facility] Blood Venous blood specimen / Unknown Venipuncture / Unknown 05/14/2024 3:35 AM EDT 05/14/2024 3:53 AM EDT Maite Austin MD LAB BLOOD ORDERABLES Final Resu lt [facility] [address] [place] [address] * (ABNORMAL) Basic metabolic panel (05/14/2024 3:35 AM EDT) Glucose, Plasma 109(H) 74 - 99 mg/dL 05/14/2024 4:52 AM EDT [facility] BUN, Plasma 16 7 - 21 mg/dL 05/14/2024 4:52 AM EDT [facility] Creatinine, Plasma 0.89 0.60 - 1.10 mg/dL 05/14/2024 4:52 AM EDT [facility] BUN/Creatinine Ratio 18 05/14/2024 4:52 AM EDT [facility] Sodium, Plasma 141 136 - 145 mmol/L 05/14/2024 4:52 AM EDT [facility] Potassium, Plasma 3.6 3.6 - 4.9 mmol/L 05/14/2024 4:52 AM EDT [facility] Chloride, Plasma 109(H) 97 - 107 mmol/L 05/14/2024 4:52 AM EDT [facility] CO2, Plasma 23 22 - 29 mmol/L 05/14/2024 4:52 AM EDT [facility] Anion Gap 9 6 - 16 mmol/L 05/14/2024 4:52 AM EDT [facility] Total Calcium, Plasma 7.4(L) 8.9 - 10.2 mg/dL 05/14/2024 4:52 AM EDT [facility] eGFRcr 77.2 mL/min/1.7 3m*2 05/14/2024 4:52 AM EDT [facility] Comment:Reported eGFRcr in m L/min/1.73m2 is based the CKD-EPI 2020 equation that does not use a race coefficient. Blood Venous blood specimen / Unknown Venipuncture / Unknown 05/14/2024 3:35 AM EDT 05/14/2024 3:53 AM EDT us Maite Austin MD LAB BLOOD ORDERABLES Final Resu lt [facility] [address] [place] [address] * (ABNORMAL) CBC W/O Differential (05/14/2024 3:35 AM EDT) WBC Count 35.22(H) 3.70 - 10.30 10*3/uL LAB HEMATOLOGY METHOD 05/14/2024 4:04 AM EDT [facility] RBC Count 2.43(L) 3.90 - 5.20 10*6/uL LAB HEMATOLOGY METHOD 05/14/2024 4:04 AM EDT [facility] HGB 7.2(L) 11.2 - 15.7 g/dL LAB HEMATOLOGY METHOD 05/14/2024 4:04 AM EDT [facility] HCT 22.0(L) 34.0 - 45.0 % LAB HEMATOLOGY METHOD 05/14/2024 4:04 AM EDT [facility] Platelet Count 352 155 - 369 10*3/uL LAB HEMATOLOGY METHOD 05/14/2024 4:04 AM EDT [facility] MCV 91 79 - 98 fL LAB HEMATOLOGY METHOD 05/14/2024 4:04 AM EDT [facility] MCH 29.6 26.0 - 32.0 pg LAB HEMATOLOGY METHOD 05/14/2024 4:04 AM EDT [facility] MCHC 32.7 30.7 - 35.5 g/dL LAB HEMATOLOGY METHOD 05/14/2024 4:04 AM EDT [facility] RDW 15.4(H) 11.5 - 14.5 % LAB HEMATOLOGY METHOD 05/14/2024 4:04 AM EDT [facility] MPV 11.0 8.8 - 12.5 fL LAB HEMATOLOGY METHOD 05/14/2024 4:04 AM EDT [facility] nRBC 0.3(H) <=0.0 per 100 WBCs LAB HEMATOLOGY METHOD 05/14/2024 4:04 AM EDT [facility] Blood Venous blood specimen / Unknown Venipuncture / Unknown 05/14/2024 3:35 AM EDT 05/14/2024 3:53 AM EDT us Maite Austin MD LAB BLOOD ORDERABLES Final Resu lt [facility] [address] [place] [address] * Magnesium, Plasma (05/14/2024 3:35 AM EDT) Magnesium, Plasma 2.0 1.9 - 2.4 mg/dL 05/14/2024 4:52 AM EDT [facility] Blood Venous blood specimen / Unknown Venipuncture / Unknown 05/14/2024 3:35 AM EDT 05/14/2024 3:53 AM EDT Lora Llanes APRN LAB BLOOD ORDERABLES Final Result Performing Organization Address [facility] Co de Phone Number [facility] [address] [place] [address] * SARS CoV-2/COVID-19 by PCR (05/13/2024 9:34 PM EDT) [facility] SARS CoV-2/COVID-1 9 RNA PCR Result Not Detected Not Detected 05/15/2024 7:05 AM EDT [facility] Swab Nasopharyngeal structure / Unknown Non-blood Collection / Unknown 05/13/2024 9:34 PM EDT 05/13/2024 10:34 PM EDT Narrative [facility] - 05/15/2024 7:05 AM EDT This test is FDA approved for use with nasopharyngeal specimens in [employer] (VTM). This test is used for clinical purposes. It should not be regarded as investigational or for research. This laboratory is certified under the Clinical Laboratory improvement Amendments of 1988 (CLIA-88 as qualified to perform high complexity clinical laboratory testing. This test was performed using the [employer] SARS CoV-2 assay, a PCR-based method. Negative results should be considered presumptive and do not preclude current or future infection obtained through community transmission or other exposures. Negative results must be considered in the context of an individual's recent exposures, history, presence of clinical signs and symptoms consistent with COVID-19. us Maite Austin MD LAB MICROBIOLOGY - GENERAL [place] Final Result Performing Organization Address [facility] Co de Phone Number [facility] [address] [place] [address] * Nasopharyngeal Respiratory Panel (05/13/2024 9:34 PM EDT) [facility] Nasopharyngeal Respiratory PCR Interpretation Not Detected for all analytes Not Detected for all analytes 05/14/2024 2:56 AM EDT [facility] Swab Nasopharyngeal structure / Unknown Non-blood Collection / Unknown 05/13/2024 9:34 PM EDT 05/13/2024 10:34 PM EDT Narrative [facility] - 05/14/2024 2:56 AM EDT This assay can detect Adenovirus, Coronavirus, Human Metapneumovirus, Human Rhino/Enterovirus, Influenza A, Influenza A H1, Influenza A H1 2009, Influenza A H3, Influenza B, Parainfluenza Virus 1, Parainfluenza Virus 2, Parainfluenza Virus 3, Parainfluenza Virus 4, Respiratory Syncytial Virus A, Respiratory Syncytial Virus B, Chlamydia pneumoniae, and Mycoplasma pneumoniae. Note: This assay does NOT detect SARS/CoV, novel Coronavirus 2019-nCoV, Bordetella pertussis or Bordetella parapertussis. Nasopharyngeal Respiratory PCR Panel is performed using the [employer] instrument. This test is FDA approved for use with Nasopharyngeal swabs only. This test is used for clinical purposes. It should not be regarded as investigational or for research. [facility] Clinical Microbiology [facility] is certified under the Clinical Laboratory Improvement Amendments of 1988 (CLIA-88) as qualified to perform high complexity clinical laboratory testing. Maite Austin MD LAB MICROBIOLOGY - GENERAL [facility] Final Result [facility] [address] [place] [address] * (ABNORMAL) POCT glucose meter (05/13/2024 5:21 PM EDT) [facility] POCT Glucose 146(H) 74 - 99 mg/dL 05/13/2024 5:23 PM EDT [facility] Comment:Accuracy of a glucos e result obtained from a capillary whole blood specimen relies upon adequate, non-compromised capillary blood flow. If the capillary glucose result is not consistent with the patient's clinical signs and symptoms, glucose testing should be repeated with either an arterial or venous sample on the glucometer or sent to the main labortory for testing. Comment 05/13/2024 5:23 PM EDT [facility] Field Hockey Coach ID Yolanda Peña 5:23 PM EDT [facility] Device ID [id number] 05/13/2024 5:23 PM EDT [facility] Specimen Type POC Venous 05/13/2024 5:23 PM EDT [facility] Blood Venous blood specimen / Unknown 05/13/2024 5:21 PM EDT 05/13/2024 5:23 PM EDT Maite Austin MD LAB POINT OF CARE TE ST DOCKED DEVICE UNSOLICITED RESULTS Final Result Performing Organization Address City/[facility] Co de Phone Number [facility] [address] [place] [address] * POCT glucose meter (05/13/2024 12:23 PM EDT) [facility] POCT Glucose 92 74 - 99 mg/dL 05/13/2024 12:25 PM EDT [facility] Comment:Accuracy of a glucos e result obtained from a capillary whole blood specimen relies upon adequate, non-compromised capillary blood flow. If the capillary glucose result is not consistent with the patient's clinical signs and symptoms, glucose testing should be repeated with either an arterial or venous sample on the glucometer or sent to the main labortory for testing. Comment 05/13/2024 12:25 PM EDT [facility] Field Hockey Coach ID Yolanda Peña 12:25 PM EDT [facility] Device ID [id number] 05/13/2024 12:25 PM EDT [facility] Specimen Type POC Capillary 05/13/2024 12:25 PM EDT [facility] Blood Capillary blood specimen / Unknown 05/13/2024 12:23 PM EDT 05/13/2024 12:25 PM EDT Maite Austin MD LAB POINT OF CARE TE ST DOCKED DEVICE UNSOLICITED RESULTS Final Result Performing Organization Address City/[facility] Co de Phone Number [facility] [address] [place] [address] * Blood Culture (Aerobic/Anaerobet Set) (05/13/2024 9:47 AM EDT) Pathologist [facility] Culture No growth at day 5 ELI 05/18/2024 11:01 AM EDT [facility] Blood Structure of antecubital vein / Unknown Venipuncture / Unknown 05/13/2024 9:47 AM EDT 05/13/2024 10:21 AM EDT Christi Hernandezill [employer] LAB MICROBIOLOGY - GENERAL ORDERABLES Final Result Performing Organization Address City/[facility]/ZIP Co de Phone Number [facility] [address] [place] [address] * (ABNORMAL) Hepatic function panel (05/13/2024 5:54 AM EDT) Conjugated Bilirubin, Plasma 0.7(H) <=0.3 mg/dL 05/13/2024 11:24 AM EDT [facility] Alkaline Phosphatase, Plasma 136(H) 35 - 104 U/L 05/13/2024 11:24 AM EDT [facility] Total Bilirubin, Plasma 1.1 0.2 - 1.1 mg/dL 05/13/2024 11:24 AM EDT [facility] Albumin, Plasma 2.6(L) 3.5 - 5.2 g/dL 05/13/2024 11:24 AM EDT [facility] Total Protein 5.5(L) 6.3 - 7.9 g/dL 05/13/2024 11:24 AM EDT [facility] ALT, Plasma 30 10 - 35 U/L 05/13/2024 11:24 AM EDT [facility] AST, Plasma 84(H) 10 - 35 U/L 05/13/2024 11:24 AM EDT [facility] Blood Venous blood specimen / Unknown Venipuncture / Unknown 05/13/2024 5:54 AM EDT 05/13/2024 6:00 AM EDT Christi Sherman [employer] LAB BLOOD ORDERABLES Final Result Performing Organization Address City/[facility]/ZIP Co de Phone Number [facility] [address] [place] [address] * Phosphorus (05/13/2024 5:54 AM EDT) Phosphorus, Plasma 4.1 2.5 - 4.5 mg/dL 05/13/2024 6:27 AM EDT [facility] Blood Venous blood specimen / Unknown Venipuncture / Unknown 05/13/2024 5:54 AM EDT 05/13/2024 6:00 AM EDT us Lora Llanes [employer] LAB BLOOD ORDERABLES Final Result [facility] [address] [place] [address] * XR Chest 1 View (05/13/2024 2:43 AM EDT) Anatomical Region Laterality Modality Chest Digital Radiogra phy Impressions 05/13/2024 1:16 PM EDT New linear atelectasis in the right mid and lower lung likely atelectasis. CRITICAL RESULT: No. COMMUNICATION: Per this written report. By electronically signing this report, I, the attending physician, attest that I have personally reviewed the images/data for the above examination(s) and agree with the final edited report. Drafted by Sanya Urbano MD on 05/13/2024 8:29 AM Final report signed by Zahraa Berger MD on 05/13/2024 1:16 PM Narrative 05/13/2024 1:16 PM EDT CLINICAL INDICATION: post op TECHNIQUE: XR CHEST 1 VIEW COMPARISON: Chest radiograph 05/12/2024 FINDINGS: Support hardware projects in unchanged and appropriate position. Median sternotomy wires are intact. Surgical changes within the mediastinum. New linear atelectasis in the right mid and lower lung. No significant pleural effusion. No pneumothorax. Mild pulmonary vascular congestion. The cardiac silhouette and mediastinal contours are stable. No acute osseous findings. Procedure Note Zahraa Berger MD - 05/13/2024 CLINICAL INDICATION: post op TECHNIQUE: XR CHEST 1 VIEW COMPARISON: Chest radiograph 05/12/2024 FINDINGS: Support hardware projects in unchanged and appropriate position. Mediansternotomy wires are intact. Surgical changes within the mediastinum. Newlinear atelectasis in the right mid and lower lung. No significant pleuraleffusion. No pneumothorax. Mild pulmonary vascular congestion. The cardiacsilhouette and mediastinal contours are stable. No acute osseousfindings. IMPRESSION: New linear atelectasis in the right mid and lower lung likelyatelectasis. CRITICAL RESULT: No. COMMUNICATION: Per this written report. By electronically signing this report, I, the attending physician, attestthat I have personally reviewed the images/data for the aboveexamination(s) and agree with the final edited report. Drafted by Sanya Urbano MD on 05/13/2024 8:29 AM Final report signed by Zahraa Berger MD on 05/13/2024 1:16 PM us Christi Sherman [employer] IMG XR PROCEDURES Final Re sult * XR Abdomen 1 View (05/13/2024 2:43 AM EDT) Anatomical Region Laterality Modality Body Digital Radiogra phy Impressions 05/13/2024 7:35 AM EDT No significant change in probable small bowel ileus since 05/12/2024 given differences in technique. CRITICAL RESULT: No. COMMUNICATION: Per this written report. Drafted by Cass Stoll DO on 05/13/2024 7:32 AM Final report signed by Cass Stoll DO on 05/13/2024 7:35 AM Narrative 05/13/2024 7:35 AM EDT CLINICAL INDICATION: ileus TECHNIQUE: XR ABDOMEN 1 VIEW COMPARISON: CT abdomen/pelvis 05/12/2024 FINDINGS: No significant change in diffuse gaseous dilation of the small bowel given differences in technique. There is gas within the nondilated colon and rectum. No definite pneumoperitoneum. Surgical clips in the right upper quadrant. Surgical suture within the left pelvis. Prior CABG and sternotomy. Nasogastric tube tip in the proximal stomach. Procedure Note aCss Stoll DO - 05/13/2024 CLINICAL INDICATION: ileus TECHNIQUE: XR ABDOMEN 1 VIEW COMPARISON: CT abdomen/pelvis 05/12/2024 FINDINGS: No significant change in diffuse gaseous dilation of the small bowel givendifferences in technique. There is gas within the nondilated colon andrectum. No definite pneumoperitoneum. Surgical clips in the right upperquadrant. Surgical suture within the left pelvis. Prior CABG andsternotomy. Nasogastric tube tip in the proximal stomach. IMPRESSION: No significant change in probable small bowel ileus since 05/12/2024 givendifferences in technique. CRITICAL RESULT: No. COMMUNICATION: Per this written report. Drafted by Cass Stoll DO on 05/13/2024 7:32 AM Final report signed by Cass Stoll DO on 05/13/2024 7:35 AM Christi Sherman APRN IMG XR PROCEDURES Final Re sult * (ABNORMAL) Procalcitonin (05/13/2024 12:43 AM EDT) Procalcitonin, Plasma 1.32(H) <0.09 ng/mL 05/13/2024 1:27 AM EDT [facility] Blood Venous blood specimen / Unknown Venipuncture / Unknown 05/13/2024 12:43 AM EDT 05/13/2024 12:49 AM EDT Narrative [facility] - 05/13/2024 1:27 AM EDT Procalcitonin concentrations in healthy individuals are <0.09 ng/mL. Published data support the following interpretive risk assessment: An elevated procalcitonin result does not always indicate sepsis. Various non-infectious conditions are known to increase procalcitonin. Results should be considered in the context of clinical symptoms and other laboratory tests. Procalcitonin >2.0 ng/mL: Concentrations >2.0 ng/mL on the first day of ICU admission are associated with a higher risk of progression to severe sepsis and/or septic shock. The change in PCT over time may help predict 28 day mortality risk. Please consult [email or web address] for more information. Test performed at [facility], Core Laboratory. Christi Sherman APRN LAB BLOOD ORDERABLES Final Result [facility] [address] [place] [address] * (ABNORMAL) Hemogram (CBC) (05/13/2024 12:43 AM EDT) WBC Count 37.45(H) 3.70 - 10.30 10*3/uL LAB HEMATOLOGY METHOD 05/13/2024 1:02 AM EDT [facility] RBC Count 2.63(L) 3.90 - 5.20 10*6/uL LAB HEMATOLOGY METHOD 05/13/2024 1:02 AM EDT [facility] HGB 7.9(L) 11.2 - 15.7 g/dL LAB HEMATOLOGY METHOD 05/13/2024 1:02 AM EDT [facility] HCT 23.0(L) 34.0 - 45.0 % LAB HEMATOLOGY METHOD 05/13/2024 1:02 AM EDT [facility] Platelet Count 256 155 - 369 10*3/uL LAB HEMATOLOGY METHOD 05/13/2024 1:02 AM EDT [facility] MCV 88 79 - 98 fL LAB HEMATOLOGY METHOD 05/13/2024 1:02 AM EDT [facility] MCH 30.0 26.0 - 32.0 pg LAB HEMATOLOGY METHOD 05/13/2024 1:02 AM EDT [facility] MCHC 34.3 30.7 - 35.5 g/dL LAB HEMATOLOGY METHOD 05/13/2024 1:02 AM EDT [facility] RDW 14.9(H) 11.5 - 14.5 % LAB HEMATOLOGY METHOD 05/13/2024 1:02 AM EDT [facility] MPV 11.4 8.8 - 12.5 fL LAB HEMATOLOGY METHOD 05/13/2024 1:02 AM EDT [facility] nRBC 0.2(H) <=0.0 per 100 WBCs LAB HEMATOLOGY METHOD 05/13/2024 1:02 AM EDT [facility] Blood Venous blood specimen / Unknown Venipuncture / Unknown 05/13/2024 12:43 AM EDT 05/13/2024 12:49 AM EDT Christi Sherman APRN LAB BLOOD ORDERABLES Final Result [facility] [address] [place] [address] * (ABNORMAL) Renal function panel (05/13/2024 12:43 AM EDT) Glucose, Plasma 103(H) 74 - 99 mg/dL 05/13/2024 1:27 AM EDT [facility] BUN, Plasma 18 7 - 21 mg/dL 05/13/2024 1:27 AM EDT [facility] Creatinine, Plasma 0.98 0.60 - 1.10 mg/dL 05/13/2024 1:27 AM EDT [facility] BUN/Creatinine Ratio 18 05/13/2024 1:27 AM EDT [facility] Sodium, Plasma 143 136 - 145 mmol/L 05/13/2024 1:27 AM EDT [facility] Potassium, Plasma 3.8 3.6 - 4.9 mmol/L 05/13/2024 1:27 AM EDT [facility] Chloride, Plasma 106 97 - 107 mmol/L 05/13/2024 1:27 AM EDT [facility] CO2, Plasma 24 22 - 29 mmol/L 05/13/2024 1:27 AM EDT [facility] Anion Gap 13 6 - 16 mmol/L 05/13/2024 1:27 AM EDT [facility] Total Calcium, Plasma 7.7(L) 8.9 - 10.2 mg/dL 05/13/2024 1:27 AM EDT [facility] Phosphorus, Plasma 4.0 2.5 - 4.5 mg/dL 05/13/2024 1:27 AM EDT [facility] Albumin, Plasma 2.6(L) 3.5 - 5.2 g/dL 05/13/2024 1:27 AM EDT [facility] eGFRcr 68.7 mL/min/1.7 3m*2 05/13/2024 1:27 AM EDT [facility] Comment:Reported eGFRcr in m L/min/1.73m2 is based the CKD-EPI 2020 equation that does not use a race coefficient. Blood Venous blood specimen / Unknown Venipuncture / Unknown 05/13/2024 12:43 AM EDT 05/13/2024 12:49 AM EDT us Christi Sherman [employer] LAB BLOOD ORDERABLES Final Result Performing Organization Address City/[facility] Co de Phone Number [facility] [address] [place] [address] * (ABNORMAL) Magnesium, Plasma (05/13/2024 12:43 AM EDT) Pathologist [facility] Magnesium, Plasma 2.5(H) 1.9 - 2.4 mg/dL 05/13/2024 1:27 AM EDT [facility] Blood Venous blood specimen / Unknown Venipuncture / Unknown 05/13/2024 12:43 AM EDT 05/13/2024 12:49 AM EDT us Lora Llanes [employer] LAB BLOOD ORDERABLES Final Result Performing Organization Address [facility] [place] [address] * POCT glucose meter (05/12/2024 6:40 PM EDT) [facility] POCT Glucose 96 74 - 99 mg/dL 05/12/2024 6:41 PM EDT [facility] Comment:Accuracy of a glucos e result obtained from a capillary whole blood specimen relies upon adequate, non-compromised capillary blood flow. If the capillary glucose result is not consistent with the patient's clinical signs and symptoms, glucose testing should be repeated with either an arterial or venous sample on the glucometer or sent to the main labortory for testing. Comment 05/12/2024 6:41 PM EDT [facility] Field Hockey Coach ID Yolanda Peña 6:41 PM EDT [facility] Device ID [id number] 05/12/2024 6:41 PM EDT [facility] Specimen Type POC Venous 05/12/2024 6:41 PM EDT [facility] Blood Venous blood specimen / Unknown 05/12/2024 6:40 PM EDT 05/12/2024 6:41 PM EDT us Maite Austin MD LAB POINT OF CARE TE ST DOCKED DEVICE UNSOLICITED RESULTS Final Result Performing Organization Address City/[facility]/ZIP Co de Phone Number [facility] [address] [place] [address] * Lactate, venous (05/12/2024 1:11 PM EDT) Lactate, Venous, Whole Blood 1.6 0.5 - 2.2 mmol/L LAB HEMATOLOGY METHOD 05/12/2024 1:17 PM EDT [facility] Blood Venous blood specimen / Unknown Venipuncture / Unknown 05/12/2024 1:11 PM EDT 05/12/2024 1:16 PM EDT us Maite Austin MD LAB BLOOD ORDERABLES Final Resu lt Performing Organization Address City/[facility]/ZIP Co de Phone Number [facility] [address] [place] [address] * Magnesium (05/12/2024 12:55 PM EDT) Magnesium, Plasma 2.4 1.9 - 2.4 mg/dL 05/12/2024 1:35 PM EDT [facility] Blood Venous blood specimen / Unknown Venipuncture / Unknown 05/12/2024 12:55 PM EDT 05/12/2024 1:04 PM EDT us Christi Sherman APRN LAB BLOOD ORDERABLES Final Result Performing Organization Address City/[facility]/ZIP Co de Phone Number [facility] [address] [place] [address] * (ABNORMAL) Renal function panel (05/12/2024 12:55 PM EDT) Glucose, Plasma 125(H) 74 - 99 mg/dL 05/12/2024 1:35 PM EDT [facility] BUN, Plasma 17 7 - 21 mg/dL 05/12/2024 1:35 PM EDT [facility] Creatinine, Plasma 1.05 0.60 - 1.10 mg/dL 05/12/2024 1:35 PM EDT [facility] BUN/Creatinine Ratio 16 05/12/2024 1:35 PM EDT [facility] Sodium, Plasma 141 136 - 145 mmol/L 05/12/2024 1:35 PM EDT [facility] Potassium, Plasma 3.6 3.6 - 4.9 mmol/L 05/12/2024 1:35 PM EDT [facility] Chloride, Plasma 102 97 - 107 mmol/L 05/12/2024 1:35 PM EDT [facility] CO2, Plasma 25 22 - 29 mmol/L 05/12/2024 1:35 PM EDT [facility] Anion Gap 14 6 - 16 mmol/L 05/12/2024 1:35 PM EDT [facility] Total Calcium, Plasma 8.1(L) 8.9 - 10.2 mg/dL 05/12/2024 1:35 PM EDT [facility] Phosphorus, Plasma 4.0 2.5 - 4.5 mg/dL 05/12/2024 1:35 PM EDT [facility] Albumin, Plasma 2.7(L) 3.5 - 5.2 g/dL 05/12/2024 1:35 PM EDT [facility] eGFRcr 63.3 mL/min/1.7 3m*2 05/12/2024 1:35 PM EDT [facility] Comment:Reported eGFRcr in m L/min/1.73m2 is based the CKD-EPI 2020 equation that does not use a race coefficient. Blood Venous blood specimen / Unknown Venipuncture / Unknown 05/12/2024 12:55 PM EDT 05/12/2024 1:04 PM EDT Christi Sherman [facility] LAB BLOOD ORDERABLES Final Result [facility] [address] [place] [address] * (ABNORMAL) POCT glucose meter (05/12/2024 12:01 PM EDT) POCT Glucose 119(H) 74 - 99 mg/dL 05/12/2024 12:03 PM EDT [facility] Comment:Accuracy of a glucos e result obtained from a capillary whole blood specimen relies upon adequate, non-compromised capillary blood flow. If the capillary glucose result is not consistent with the patient's clinical signs and symptoms, glucose testing should be repeated with either an arterial or venous sample on the glucometer or sent to the main labortory for testing. Comment 05/12/2024 12:03 PM EDT [facility] Field Hockey Coach ID Yolanda Peña 12:03 PM EDT [facility] Device ID [id number] 05/12/2024 12:03 PM EDT [facility] Specimen Type POC Venous 05/12/2024 12:03 PM EDT [facility] Blood Venous blood specimen / Unknown 05/12/2024 12:01 PM EDT 05/12/2024 12:03 PM EDT Maite Austin MD LAB POINT OF CARE TE ST DOCKED DEVICE UNSOLICITED RESULTS Final Result Performing Organization Address City/State/[facility] Co de Phone Number [facility] [address] [place] [address] * (ABNORMAL) POCT glucose meter (05/12/2024 11:59 AM EDT) [facility] Signature POCT Glucose 276(H) 74 - 99 mg/dL 05/12/2024 12:02 PM EDT [facility] Comment:Accuracy of a glucos e result obtained from a capillary whole blood specimen relies upon adequate, non-compromised capillary blood flow. If the capillary glucose result is not consistent with the patient's clinical signs and symptoms, glucose testing should be repeated with either an arterial or venous sample on the glucometer or sent to the main labortory for testing. Comment 05/12/2024 12:02 PM EDT [facility] Field Hockey Coach ID Yolanda Peña 12:02 PM EDT [facility] Device ID [id number] 05/12/2024 12:02 PM EDT [facility] Specimen Type POC Venous 05/12/2024 12:02 PM EDT [facility] Blood Venous blood specimen / Unknown 05/12/2024 11:59 AM EDT 05/12/2024 12:02 PM EDT us Maite Austin MD LAB POINT OF CARE TE ST DOCKED DEVICE UNSOLICITED RESULTS Final Result [facility] [address] [place] [address] * CT Abdomen Pelvis wo IV Contrast (05/12/2024 11:42 AM EDT) Anatomical Region Laterality Modality Abdomen, Pelvis Computed Tomogra phy Impressions 05/12/2024 2:12 PM EDT Mild diffuse dilation of the small bowel, likely postoperative ileus Minimal pericolic stranding along the descending colon. This could represent colitis. Correlate with lower GI tract symptoms. CRITICAL RESULT: No. COMMUNICATION: Per this written report. Drafted by Giovanni Shi MD on 05/12/2024 2:09 PM Final report signed by Giovanni Shi MD on 05/12/2024 2:12 PM Narrative 05/12/2024 2:12 PM EDT CLINICAL INDICATION: Abdominal pain, post-op TECHNIQUE: Multiple axial CT images were obtained from lung bases through pubic symphysis without the administration of IV contrast. Reformatted images in the coronal and sagittal planes were generated from the axial data set to facilitate diagnostic accuracy. Total DLP (Dose-Length Product): 257.48 mGy.cm. Please note: The reported value represents the total of one or more individual components during the CT acquisition on this date and at this time, and as such, the same value may appear in more than one CT report depending on the interpreting/reporting physicians. COMPARISON: May 09, 2024 CT abdomen pelvis FINDINGS: Lower Chest: There is a moderate right pleural effusion. There is bibasilar atelectasis. There are patchy groundglass opacities. There are adjacent epicardial pacer wires. There is a small amount of gas under the xiphoid process. There are changes of coronary bypass. Analysis of the abdominopelvic viscera is limited by the absence of intravenous contrast material. Solid Abdominal Organs: The liver is normal. The gallbladder is absent. The bile duct dilation. The pancreas, spleen, adrenal glands, and kidneys are normal. GI Tract/Mesentery/Peritoneum: A nasogastric tube terminates in the stomach. There is mild diffuse distention of the small bowel. There is no transition point to suggest obstruction. There is mild pericolic stranding along the descending colon. Pelvic Viscera: The bladder is normal. No pelvic mass. Uterus is absent. Lymph Nodes/Vasculature: No lymphadenopathy. Calcific atherosclerosis of the aorta. Free Fluid: Trace free fluid Musculoskeletal and Body Wall: No suspicious osseous abnormality Procedure Note Giovanni Shi MD - 05/12/2024 CLINICAL INDICATION: Abdominal pain, post-op TECHNIQUE: Multiple axial CT images were obtained from lung bases through pubicsymphysis without the administration of IV contrast. Reformatted images inthe coronal and sagittal planes were generated from the axial data set tofacilitate diagnostic accuracy. Total DLP (Dose-Length Product): 257.48 mGy.cm. Please note: The reportedvalue represents the total of one or more individual components during theCT acquisition on this date and at this time, and as such, the same valuemay appear in more than one CT report depending on theinterpreting/reporting physicians. COMPARISON: May 09, 2024 CT abdomen pelvis FINDINGS: Lower Chest: There is a moderate right pleural effusion. There isbibasilar atelectasis. There are patchy groundglass opacities. There areadjacent epicardial pacer wires. There is a small amount of gas under thexiphoid process. There are changes of coronary bypass. Analysis of the abdominopelvic viscera is limited by the absence ofintravenous contrast material. Solid Abdominal Organs: The liver is normal. The gallbladder is absent.The bile duct dilation. The pancreas, spleen, adrenal glands, and kidneysare normal. GI Tract/Mesentery/Peritoneum: A nasogastric tube terminates in thestomach. There is mild diffuse distention of the small bowel. There is notransition point to suggest obstruction. There is mild pericolic strandingalong the descending colon. Pelvic Viscera: The bladder is normal. No pelvic mass. Uterus is absent. Lymph Nodes/Vasculature: No lymphadenopathy. Calcific atherosclerosis ofthe aorta. Free Fluid: Trace free fluid Musculoskeletal and Body Wall: No suspicious osseous abnormality IMPRESSION: Mild diffuse dilation of the small bowel, likely postoperative ileus Minimal pericolic stranding along the descending colon. This couldrepresent colitis. Correlate with lower GI tract symptoms. CRITICAL RESULT: No. COMMUNICATION: Per this written report. Drafted by Giovanni Shi MD on 05/12/2024 2:09 PM Final report signed by Giovanni Shi MD on 05/12/2024 2:12 PM Christi Sherman [employer] IMG CT PROCEDURES Final Re sult * Lactate, venous (05/12/2024 10:12 AM EDT) Lactate, Venous, Whole Blood 1.6 0.5 - 2.2 mmol/L LAB HEMATOLOGY METHOD 05/12/2024 10:18 AM EDT [facility] Blood Venous blood specimen / Unknown Venipuncture / Unknown 05/12/2024 10:12 AM EDT 05/12/2024 10:16 AM EDT us Maite Austin MD LAB BLOOD ORDERABLES Final Resu lt [facility] [address] [place] [address] * (ABNORMAL) POCT glucose meter (05/12/2024 6:57 AM EDT) POCT Glucose 109(H) 74 - 99 mg/dL 05/12/2024 6:59 AM EDT [facility] Comment:Accuracy of a glucos e result obtained from a capillary whole blood specimen relies upon adequate, non-compromised capillary blood flow. If the capillary glucose result is not consistent with the patient's clinical signs and symptoms, glucose testing should be repeated with either an arterial or venous sample on the glucometer or sent to the main labortory for testing. Comment 05/12/2024 6:59 AM EDT [facility] Field Hockey Coach ID Cheryl Mcconnell 05/13/19 6:59 AM EDT [facility] Device ID [id number] 05/12/2024 6:59 AM EDT [facility] Specimen Type POC Capillary 05/12/2024 6:59 AM EDT [facility] Blood Capillary blood specimen / Unknown 05/12/2024 6:57 AM EDT 05/12/2024 6:59 AM EDT Maite Austin MD LAB POINT OF CARE TE ST DOCKED DEVICE UNSOLICITED RESULTS Final Result [facility] [address] [place] [address] * XR Chest 1 View (05/12/2024 2:33 AM EDT) Anatomical Region Laterality Modality Chest Digital Radiogra phy Impressions 05/12/2024 3:53 PM EDT Mildly improved perihilar and bibasilar atelectasis. CRITICAL RESULT: No. COMMUNICATION: Per this written report. By electronically signing this report, I, the attending physician, attest that I have personally reviewed the images/data for the above examination(s) and agree with the final edited report. Drafted by Sanya Urbano MD on 05/12/2024 11:58 AM Final report signed by Zahraa Berger MD on 05/12/2024 3:53 PM Narrative 05/12/2024 3:53 PM EDT CLINICAL INDICATION: post op TECHNIQUE: XR CHEST 1 VIEW COMPARISON: Chest radiograph one day prior FINDINGS: Support hardware projects in unchanged and appropriate position. The cardiac silhouette and mediastinal contours are stable from comparison. Improved perihilar and bibasilar atelectasis. No significant pleural effusion. No pneumothorax. Procedure Note Zahraa Berger MD - 05/12/2024 CLINICAL INDICATION: post op TECHNIQUE: XR CHEST 1 VIEW COMPARISON: Chest radiograph one day prior FINDINGS: Support hardware projects in unchanged and appropriate position. Thecardiac silhouette and mediastinal contours are stable from comparison.Improved perihilar and bibasilar atelectasis. No significant pleuraleffusion. No pneumothorax. IMPRESSION: Mildly improved perihilar and bibasilar atelectasis. CRITICAL RESULT: No. COMMUNICATION: Per this written report. By electronically signing this report, I, the attending physician, attestthat I have personally reviewed the images/data for the aboveexamination(s) and agree with the final edited report. Drafted by Sanya Urbano MD on 05/12/2024 11:58 AM Final report signed by Zahraa Berger MD on 05/12/2024 3:53 PM us Maite Austin MD IMG XR PROCEDURES Final Result * (ABNORMAL) Blood gas panel, venous (05/12/2024 12:58 AM EDT) pH, Venous 7.49(H) 7.32 - 7.43 LAB HEMATOLOGY METHOD 05/12/2024 12:58 AM EDT [facility] pCO2, Venous 36(L) 37 - 52 mmHg LAB HEMATOLOGY METHOD 05/12/2024 12:58 AM EDT [facility] pO2, Venous 45(H) 25 - 40 mmHg LAB HEMATOLOGY METHOD 05/12/2024 12:58 AM EDT [facility] SO2, Measured, Venous 82(H) 65 - 80 % LAB HEMATOLOGY METHOD 05/12/2024 12:58 AM EDT [facility] Base Excess, Venous 4.4(H) -2.0 - 3.0 mmol/L LAB HEMATOLOGY METHOD 05/12/2024 12:58 AM EDT [facility] Bicarbonate, Calculated, Venous 28(H) 22 - 26 mmol/L LAB HEMATOLOGY METHOD 05/12/2024 12:58 AM EDT [facility] Hematocrit, Whole Blood 26.7(L) 34.0 - 45.0 % LAB HEMATOLOGY METHOD 05/12/2024 12:58 AM EDT [facility] Sodium, Whole Blood 140 136 - 145 mmol/L LAB HEMATOLOGY METHOD 05/12/2024 12:58 AM EDT [facility] Potassium, Whole Blood 3.1(L) 3.6 - 4.9 mmol/L LAB HEMATOLOGY METHOD 05/12/2024 12:58 AM EDT [facility] Chloride, Whole Blood 101 97 - 107 mmol/L LAB HEMATOLOGY METHOD 05/12/2024 12:58 AM EDT [facility] Glucose, Whole Blood 101(H) 74 - 99 mg/dL LAB HEMATOLOGY METHOD 05/12/2024 12:58 AM EDT [facility] Lactate, Venous, Whole Blood 1.6 0.5 - 2.2 mmol/L LAB HEMATOLOGY METHOD 05/12/2024 12:58 AM EDT [facility] Ionized Calcium, Whole Blood 4.4(L) 4.6 - 5.1 mg/dL LAB HEMATOLOGY METHOD 05/12/2024 12:58 AM EDT [facility] Blood Venous blood specimen / Unknown 05/12/2024 12:53 AM EDT Lora Chinokatja NICHOLSON[facility] LAB BLOOD ORDERABLES Final Result Performing Organization Address [facility] Co de Phone Number [facility] [address] [place] [address] * (ABNORMAL) Procalcitonin (05/12/2024 12:34 AM EDT) Procalcitonin, Plasma 2.08(H) <0.09 ng/mL 05/12/2024 2:46 AM EDT [facility] Blood Venous blood specimen / Unknown Venipuncture / Unknown 05/12/2024 12:34 AM EDT 05/12/2024 1:00 AM EDT Narrative [facility] - 05/12/2024 2:46 AM EDT Procalcitonin concentrations in healthy individuals are <0.09 ng/mL. Published data support the following interpretive risk assessment: An elevated procalcitonin result does not always indicate sepsis. Various non-infectious conditions are known to increase procalcitonin. Results should be considered in the context of clinical symptoms and other laboratory tests. Procalcitonin >2.0 ng/mL: Concentrations >2.0 ng/mL on the first day of ICU admission are associated with a higher risk of progression to severe sepsis and/or septic shock. The change in PCT over time may help predict 28 day mortality risk. Please consult [email or web address] for more information. Test performed at [facility], [facility] Laboratory. us Lora Llanes APRN LAB BLOOD ORDERABLES Final Result Performing Organization Address [facility]/ZIP Co de Phone Number [facility] [address] [place] [address] * Lipase (05/12/2024 12:34 AM EDT) Lipase, Plasma 55 19 - 63 U/L 05/12/2024 2:46 AM EDT [facility] Blood Venous blood specimen / Unknown Venipuncture / Unknown 05/12/2024 12:34 AM EDT 05/12/2024 1:00 AM EDT us Lora Llanes [employer] LAB BLOOD ORDERABLES Final Result [facility] [address] [place] [address] * (ABNORMAL) Basic metabolic panel (05/12/2024 12:34 AM EDT) Glucose, Plasma 102(H) 74 - 99 mg/dL 05/12/2024 2:46 AM EDT [facility] BUN, Plasma 21 7 - 21 mg/dL 05/12/2024 2:46 AM EDT [facility] Creatinine, Plasma 1.13(H) 0.60 - 1.10 mg/dL 05/12/2024 2:46 AM EDT [facility] BUN/Creatinine Ratio 19 05/12/2024 2:46 AM EDT [facility] Sodium, Plasma 141 136 - 145 mmol/L 05/12/2024 2:46 AM EDT [facility] Potassium, Plasma 3.3(L) 3.6 - 4.9 mmol/L 05/12/2024 2:46 AM EDT [facility] Chloride, Plasma 103 97 - 107 mmol/L 05/12/2024 2:46 AM EDT [facility] CO2, Plasma 23 22 - 29 mmol/L 05/12/2024 2:46 AM EDT [facility] Anion Gap 15 6 - 16 mmol/L 05/12/2024 2:46 AM EDT [facility] Total Calcium, Plasma 8.3(L) 8.9 - 10.2 mg/dL 05/12/2024 2:46 AM EDT [facility] eGFRcr 57.9 mL/min/1.7 3m*2 05/12/2024 2:46 AM EDT [facility] Comment:Reported eGFRcr in m L/min/1.73m2 is based the CKD-EPI 2020 equation that does not use a race coefficient. Blood Venous blood specimen / Unknown Venipuncture / Unknown 05/12/2024 12:34 AM EDT 05/12/2024 1:00 AM EDT us Maite Austin MD LAB BLOOD ORDERABLES Final Resu lt [facility] [address] [place] [address] * (ABNORMAL) Hemogram (CBC) (05/12/2024 12:34 AM EDT) WBC Count 32.60(H) 3.70 - 10.30 10*3/uL LAB HEMATOLOGY METHOD 05/12/2024 1:08 AM EDT [facility] RBC Count 2.77(L) 3.90 - 5.20 10*6/uL LAB HEMATOLOGY METHOD 05/12/2024 1:08 AM EDT [facility] HGB 8.4(L) 11.2 - 15.7 g/dL LAB HEMATOLOGY METHOD 05/12/2024 1:08 AM EDT [facility] HCT 23.9(L) 34.0 - 45.0 % LAB HEMATOLOGY METHOD 05/12/2024 1:08 AM EDT [facility] Platelet Count 184 155 - 369 10*3/uL LAB HEMATOLOGY METHOD 05/12/2024 1:08 AM EDT [facility] MCV 86 79 - 98 fL LAB HEMATOLOGY METHOD 05/12/2024 1:08 AM EDT [facility] MCH 30.3 26.0 - 32.0 pg LAB HEMATOLOGY METHOD 05/12/2024 1:08 AM EDT [facility] MCHC 35.1 30.7 - 35.5 g/dL LAB HEMATOLOGY METHOD 05/12/2024 1:08 AM EDT [facility] RDW 15.2(H) 11.5 - 14.5 % LAB HEMATOLOGY METHOD 05/12/2024 1:08 AM EDT [facility] MPV 11.4 8.8 - 12.5 fL LAB HEMATOLOGY METHOD 05/12/2024 1:08 AM EDT [facility] nRBC 0.4(H) <=0.0 per 100 WBCs LAB HEMATOLOGY METHOD 05/12/2024 1:08 AM EDT [facility] Blood Venous blood specimen / Unknown Venipuncture / Unknown 05/12/2024 12:34 AM EDT 05/12/2024 1:02 AM EDT us Maite Austin MD LAB BLOOD ORDERABLES Final Resu lt [facility] [address] [place] [address] * Phosphorus (05/12/2024 12:34 AM EDT) Phosphorus, Plasma 3.9 2.5 - 4.5 mg/dL 05/12/2024 2:46 AM EDT [facility] Blood Venous blood specimen / Unknown Venipuncture / Unknown 05/12/2024 12:34 AM EDT 05/12/2024 1:00 AM EDT us Lora Llanes APRN LAB BLOOD ORDERABLES Final Result Performing Organization Address [facility]/ZIP Co de Phone Number [facility] [address] [place] [address] * Magnesium, Plasma (05/12/2024 12:34 AM EDT) Magnesium, Plasma 2.0 1.9 - 2.4 mg/dL 05/12/2024 2:46 AM EDT [facility] Blood Venous blood specimen / Unknown Venipuncture / Unknown 05/12/2024 12:34 AM EDT 05/12/2024 1:00 AM EDT us Lora Llanes APRN LAB BLOOD ORDERABLES Final Result Performing Organization Address City/[facility]/ZIP Co de Phone Number [facility] [address] [place] [address] * (ABNORMAL) POCT glucose meter (05/12/2024 12:22 AM EDT) POCT Glucose 102(H) 74 - 99 mg/dL 05/12/2024 12:23 AM EDT [facility] Comment:Accuracy of a glucos e result obtained from a capillary whole blood specimen relies upon adequate, non-compromised capillary blood flow. If the capillary glucose result is not consistent with the patient's clinical signs and symptoms, glucose testing should be repeated with either an arterial or venous sample on the glucometer or sent to the main labortory for testing. Comment 05/12/2024 12:23 AM EDT [facility] Field Hockey Coach ID Cheryl Mcconnell 05/13/19 12:23 AM EDT [facility] Device ID [id number] 05/12/2024 12:23 AM EDT [facility] Specimen Type POC Capillary 05/12/2024 12:23 AM EDT [facility] Blood Capillary blood specimen / Unknown 05/12/2024 12:22 AM EDT 05/12/2024 12:23 AM EDT us Maite Austin MD LAB POINT OF CARE TE ST DOCKED DEVICE UNSOLICITED RESULTS Final Result Performing Organization Address City/State/[facility] Phone Number [facility] [address] [place], [place] [id number] * XR Abdomen 1 View (05/11/2024 11:53 PM EDT) Anatomical Region Laterality Modality Body Digital Radiogra phy Impressions 05/12/2024 12:00 AM EDT Nasogastric tube tip in the proximal stomach. Persistent dilated small bowel. CRITICAL RESULT: No. COMMUNICATION: Per this written report. Drafted by Lorri Lopez MD on 05/11/2024 11:59 PM Final report signed by Lorri Lopez MD on 05/12/2024 12:00 AM Narrative 05/12/2024 12:00 AM EDT CLINICAL INDICATION: NG placement, ileus TECHNIQUE: XR ABDOMEN 1 VIEW COMPARISON: 05/11/2024 FINDINGS: Nasogastric tube tip in the proximal stomach. Persistent gas-filled dilated small bowel. No colonic distention. No pneumatosis or free air. Procedure Note Lorri Lopez MD - 05/12/2024 CLINICAL INDICATION: NG placement, ileus TECHNIQUE: XR ABDOMEN 1 VIEW COMPARISON: 05/11/2024 FINDINGS: Nasogastric tube tip in the proximal stomach. Persistent gas-filleddilated small bowel. No colonic distention. No pneumatosis or free air. IMPRESSION: Nasogastric tube tip in the proximal stomach. Persistent dilated small bowel. CRITICAL RESULT: No. COMMUNICATION: Per this written report. Drafted by Lorri Lopez MD on 05/11/2024 11:59 PM Final report signed by Lorri Lopez MD on 05/12/2024 12:00 AM us Lora Dawn [place] [employer] IMG XR PROCEDURES Final Res ult * (ABNORMAL) POCT glucose meter (05/11/2024 6:09 PM EDT) Pathologist [facility] POCT Glucose 113(H) 74 - 99 mg/dL 05/11/2024 6:11 PM EDT [facility] Comment:Accuracy of a glucos e result obtained from a capillary whole blood specimen relies upon adequate, non-compromised capillary blood flow. If the capillary glucose result is not consistent with the patient's clinical signs and symptoms, glucose testing should be repeated with either an arterial or venous sample on the glucometer or sent to the main labortory for testing. Comment 05/11/2024 6:11 PM EDT [facility] Field Hockey Coach ID [place], 05/12/19 6:11 PM EDT [facility] Device ID [id number] 05/11/2024 6:11 PM EDT [facility] Specimen Type POC Capillary 05/11/2024 6:11 PM EDT [facility] Blood Capillary blood specimen / Unknown 05/11/2024 6:09 PM EDT 05/11/2024 6:11 PM EDT us Maite Austin MD LAB POINT OF CARE TE ST DOCKED DEVICE UNSOLICITED RESULTS Final Result [facility] [address] [place] [id number] * Magnesium (05/11/2024 2:02 PM EDT) [facility] Magnesium, Plasma 2.2 1.9 - 2.4 mg/dL 05/11/2024 2:49 PM EDT [facility] Blood Venous blood specimen / Unknown Venipuncture / Unknown 05/11/2024 2:02 PM EDT 05/11/2024 2:20 PM EDT us Maite Austin MD LAB BLOOD ORDERABLES Final Resu lt [facility] [address] [place] [address] * (ABNORMAL) Renal function panel (05/11/2024 2:02 PM EDT) Glucose, Plasma 89 74 - 99 mg/dL 05/11/2024 2:49 PM EDT [facility] BUN, Plasma 22(H) 7 - 21 mg/dL 05/11/2024 2:49 PM EDT [facility] Creatinine, Plasma 1.18(H) 0.60 - 1.10 mg/dL 05/11/2024 2:49 PM EDT [facility] BUN/Creatinine Ratio 19 05/11/2024 2:49 PM EDT [facility] Sodium, Plasma 142 136 - 145 mmol/L 05/11/2024 2:49 PM EDT [facility] Potassium, Plasma 3.9 3.6 - 4.9 mmol/L 05/11/2024 2:49 PM EDT [facility] Chloride, Plasma 106 97 - 107 mmol/L 05/11/2024 2:49 PM EDT [facility] CO2, Plasma 24 22 - 29 mmol/L 05/11/2024 2:49 PM EDT [facility] Anion Gap 12 6 - 16 mmol/L 05/11/2024 2:49 PM EDT [facility] Total Calcium, Plasma 9.1 8.9 - 10.2 mg/dL 05/11/2024 2:49 PM EDT [facility] Phosphorus, Plasma 4.4 2.5 - 4.5 mg/dL 05/11/2024 2:49 PM EDT [facility] Albumin, Plasma 3.0(L) 3.5 - 5.2 g/dL 05/11/2024 2:49 PM EDT [facility] eGFRcr 55.0 mL/min/1.7 3m*2 05/11/2024 2:49 PM EDT [facility] Comment:Reported eGFRcr in m L/min/1.73m2 is based the CKD-EPI 2020 equation that does not use a race coefficient. Blood Venous blood specimen / Unknown Venipuncture / Unknown 05/11/2024 2:02 PM EDT 05/11/2024 2:20 PM EDT us Maite Austin MD LAB BLOOD ORDERABLES Final Resu lt [facility] [address] [place] [address] * (ABNORMAL) POCT glucose meter (05/11/2024 11:48 AM EDT) POCT Glucose 200(H) 74 - 99 mg/dL 05/11/2024 11:50 AM EDT [facility] Comment:Accuracy of a glucos e result obtained from a capillary whole blood specimen relies upon adequate, non-compromised capillary blood flow. If the capillary glucose result is not consistent with the patient's clinical signs and symptoms, glucose testing should be repeated with either an arterial or venous sample on the glucometer or sent to the main labortory for testing. Comment 05/11/2024 11:50 AM EDT [facility] Field Hockey Coach ID ThaiJamee, 05/12/19 11:50 AM EDT [facility] Device ID [id number] 05/11/2024 11:50 AM EDT [facility] Specimen Type POC Capillary 05/11/2024 11:50 AM EDT [facility] Blood Capillary blood specimen / Unknown 05/11/2024 11:48 AM EDT 05/11/2024 11:50 AM EDT us Maite Austin MD LAB POINT OF CARE TE ST DOCKED DEVICE UNSOLICITED RESULTS Final Result [facility] [address] [place] [address] * (ABNORMAL) POCT glucose meter (05/11/2024 11:14 AM EDT) POCT Glucose 69(L) 74 - 99 mg/dL 05/11/2024 11:43 AM EDT [facility] Comment:Accuracy of a glucos e result obtained from a capillary whole blood specimen relies upon adequate, non-compromised capillary blood flow. If the capillary glucose result is not consistent with the patient's clinical signs and symptoms, glucose testing should be repeated with either an arterial or venous sample on the glucometer or sent to the main labortory for testing. Comment 05/11/2024 11:43 AM EDT [facility] Field Hockey Coach ID Mayco, 05/12/19 11:43 AM EDT [facility] Device ID [id number] 05/11/2024 11:43 AM EDT [facility] Specimen Type POC Capillary 05/11/2024 11:43 AM EDT [facility] Blood Capillary blood specimen / Unknown 05/11/2024 11:14 AM EDT 05/11/2024 11:43 AM EDT us Maite Austin MD LAB POINT OF CARE TE ST DOCKED DEVICE UNSOLICITED RESULTS Final Result Performing Organization Address City/[facility]/ZIP Co de Phone Number [facility] [address] [place] [address] * Phosphorus (05/11/2024 2:38 AM EDT) Phosphorus, Plasma 3.8 2.5 - 4.5 mg/dL 05/11/2024 3:16 AM EDT [facility] Blood Venous blood specimen / Unknown Venipuncture / Unknown 05/11/2024 2:38 AM EDT 05/11/2024 2:46 AM EDT us Lora Llanes APRN LAB BLOOD ORDERABLES Final Result [facility] [address] [place] [address] * (ABNORMAL) Basic metabolic panel (05/11/2024 2:38 AM EDT) Glucose, Plasma 86 74 - 99 mg/dL 05/11/2024 3:16 AM EDT [facility] BUN, Plasma 22(H) 7 - 21 mg/dL 05/11/2024 3:16 AM EDT [facility] Creatinine, Plasma 1.09 0.60 - 1.10 mg/dL 05/11/2024 3:16 AM EDT [facility] BUN/Creatinine Ratio 20 05/11/2024 3:16 AM EDT [facility] Sodium, Plasma 141 136 - 145 mmol/L 05/11/2024 3:16 AM EDT [facility] Potassium, Plasma 3.7 3.6 - 4.9 mmol/L 05/11/2024 3:16 AM EDT [facility] Chloride, Plasma 106 97 - 107 mmol/L 05/11/2024 3:16 AM EDT [facility] CO2, Plasma 24 22 - 29 mmol/L 05/11/2024 3:16 AM EDT [facility] Anion Gap 11 6 - 16 mmol/L 05/11/2024 3:16 AM EDT [facility] Total Calcium, Plasma 7.8(L) 8.9 - 10.2 mg/dL 05/11/2024 3:16 AM EDT [facility] eGFRcr 60.5 mL/min/1.7 3m*2 05/11/2024 3:16 AM EDT [facility] Comment:Reported eGFRcr in m L/min/1.73m2 is based the CKD-EPI 2020 equation that does not use a race coefficient. Blood Venous blood specimen / Unknown Venipuncture / Unknown 05/11/2024 2:38 AM EDT 05/11/2024 2:46 AM EDT us Maite Austin MD LAB BLOOD ORDERABLES Final Resu lt [facility] [address] [place] [address] * (ABNORMAL) Hemogram (CBC) (05/11/2024 2:38 AM EDT) WBC Count 23.95(H) 3.70 - 10.30 10*3/uL LAB HEMATOLOGY METHOD 05/11/2024 2:54 AM EDT [facility] RBC Count 2.92(L) 3.90 - 5.20 10*6/uL LAB HEMATOLOGY METHOD 05/11/2024 2:54 AM EDT [facility] HGB 8.6(L) 11.2 - 15.7 g/dL LAB HEMATOLOGY METHOD 05/11/2024 2:54 AM EDT [facility] HCT 25.0(L) 34.0 - 45.0 % LAB HEMATOLOGY METHOD 05/11/2024 2:54 AM EDT [facility] Platelet Count 146(L) 155 - 369 10*3/uL LAB HEMATOLOGY METHOD 05/11/2024 2:54 AM EDT [facility] MCV 86 79 - 98 fL LAB HEMATOLOGY METHOD 05/11/2024 2:54 AM EDT [facility] MCH 29.5 26.0 - 32.0 pg LAB HEMATOLOGY METHOD 05/11/2024 2:54 AM EDT [facility] MCHC 34.4 30.7 - 35.5 g/dL LAB HEMATOLOGY METHOD 05/11/2024 2:54 AM EDT [facility] RDW 15.6(H) 11.5 - 14.5 % LAB HEMATOLOGY METHOD 05/11/2024 2:54 AM EDT [facility] MPV 10.6 8.8 - 12.5 fL LAB HEMATOLOGY METHOD 05/11/2024 2:54 AM EDT [facility] nRBC 0.9(H) <=0.0 per 100 WBCs LAB HEMATOLOGY METHOD 05/11/2024 2:54 AM EDT [facility] Blood Venous blood specimen / Unknown Venipuncture / Unknown 05/11/2024 2:38 AM EDT 05/11/2024 2:47 AM EDT us Maite Austin MD LAB BLOOD ORDERABLES Final Resu lt [facility] [address] [place] [address] * (ABNORMAL) Blood gas panel, venous (05/11/2024 2:38 AM EDT) [facility] Signature pH, Venous 7.46(H) 7.32 - 7.43 LAB HEMATOLOGY METHOD 05/11/2024 2:56 AM EDT [facility] pCO2, Venous 37 37 - 52 mmHg LAB HEMATOLOGY METHOD 05/11/2024 2:56 AM EDT [facility] pO2, Venous 65(H) 25 - 40 mmHg LAB HEMATOLOGY METHOD 05/11/2024 2:56 AM EDT [facility] SO2, Measured, Venous 94(H) 65 - 80 % LAB HEMATOLOGY METHOD 05/11/2024 2:56 AM EDT [facility] Base Excess, Venous 2.0 -2.0 - 3.0 mmol/L LAB HEMATOLOGY METHOD 05/11/2024 2:56 AM EDT [facility] Bicarbonate, Calculated, Venous 26 22 - 26 mmol/L LAB HEMATOLOGY METHOD 05/11/2024 2:56 AM EDT [facility] Hematocrit, Whole Blood 25.3(L) 34.0 - 45.0 % LAB HEMATOLOGY METHOD 05/11/2024 2:56 AM EDT [facility] Sodium, Whole Blood 143 136 - 145 mmol/L LAB HEMATOLOGY METHOD 05/11/2024 2:56 AM EDT [facility] Potassium, Whole Blood 3.4(L) 3.6 - 4.9 mmol/L LAB HEMATOLOGY METHOD 05/11/2024 2:56 AM EDT [facility] Chloride, Whole Blood 106 97 - 107 mmol/L LAB HEMATOLOGY METHOD 05/11/2024 2:56 AM EDT [facility] Glucose, Whole Blood 82 74 - 99 mg/dL LAB HEMATOLOGY METHOD 05/11/2024 2:56 AM EDT [facility] Lactate, Venous, Whole Blood 1.2 0.5 - 2.2 mmol/L LAB HEMATOLOGY METHOD 05/11/2024 2:56 AM EDT [facility] Ionized Calcium, Whole Blood 4.2(L) 4.6 - 5.1 mg/dL LAB HEMATOLOGY METHOD 05/11/2024 2:56 AM EDT [facility] Blood Venous blood specimen / Unknown Venipuncture / Unknown 05/11/2024 2:38 AM EDT 05/11/2024 2:52 AM EDT us Lora Llanes APRN LAB BLOOD ORDERABLES Final Result [facility] [address] [place] [address] * Magnesium, Plasma (05/11/2024 2:38 AM EDT) Magnesium, Plasma 2.3 1.9 - 2.4 mg/dL 05/11/2024 3:16 AM EDT [facility] Blood Venous blood specimen / Unknown Venipuncture / Unknown 05/11/2024 2:38 AM EDT 05/11/2024 2:46 AM EDT us Lora Llanes [employer] LAB BLOOD ORDERABLES Final Result [facility] [address] [place] [address] * XR Abdomen 1 View (05/11/2024 2:20 AM EDT) Anatomical Region Laterality Modality Body Digital Radiogra phy Impressions 05/11/2024 10:08 AM EDT Worsening dilation of the small bowel concerning for small bowel ileus or obstruction. Clinical correlation and follow-up is recommended. CRITICAL RESULT: No. COMMUNICATION: Per this written report. By electronically signing this report, I, the attending physician, attest that I have personally reviewed the images/data for the above examination(s) and agree with the final edited report. Drafted by Sanya Urbano MD on 05/11/2024 8:44 AM Final report signed by Zahraa Berger MD on 05/11/2024 10:08 AM Narrative 05/11/2024 10:08 AM EDT CLINICAL INDICATION: ileus TECHNIQUE: XR ABDOMEN 1 VIEW COMPARISON: Abdominal radiograph 05/10/2024 FINDINGS: Increased distention of the small bowel, previously measuring 3.7 cm at largest diameter, now measuring 5.3 cm. Paucity of air within the colon and rectum. Mild amount of air within the stomach. There is residual contrast medium within the stomach. A gastric tube terminates in the mid stomach with the sidehole below the gastric esophageal junction. Nonacute bones. Lung bases are clear. Procedure Note Zahraa Berger MD - 05/11/2024 CLINICAL INDICATION: ileus TECHNIQUE: XR ABDOMEN 1 VIEW COMPARISON: Abdominal radiograph 05/10/2024 FINDINGS: Increased distention of the small bowel, previously measuring 3.7 cm atlargest diameter, now measuring 5.3 cm. Paucity of air within the colonand rectum. Mild amount of air within the stomach. There is residualcontrast medium within the stomach. A gastric tube terminates in the midstomach with the sidehole below the gastric esophageal junction. Nonacutebones. Lung bases are clear. IMPRESSION: Worsening dilation of the small bowel concerning for small bowel ileus orobstruction. Clinical correlation and follow-up is recommended. CRITICAL RESULT: No. COMMUNICATION: Per this written report. By electronically signing this report, I, the attending physician, attestthat I have personally reviewed the images/data for the aboveexamination(s) and agree with the final edited report. Drafted by Sanya Urbano MD on 05/11/2024 8:44 AM Final report signed by Zahraa Berger MD on 05/11/2024 10:08 AM us Maite Austin MD IMG XR PROCEDURES Final Result * XR Chest 1 View (05/11/2024 2:17 AM EDT) Anatomical Region Laterality Modality Chest Digital Radiogra phy Impressions 05/11/2024 9:08 AM EDT Slightly increased perihilar opacities, likely atelectasis with some possible superimposed airspace disease. CRITICAL RESULT: No. COMMUNICATION: Per this written report Drafted by Champ Oden MD on 05/11/2024 9:07 AM Final report signed by Champ Oden MD on 05/11/2024 9:08 AM Narrative 05/11/2024 9:08 AM EDT CLINICAL INDICATION: post p[ TECHNIQUE: XR CHEST 1 VIEW COMPARISON: 16 hours prior FINDINGS: Mediastinal approach chest tubes have been removed. Other support hardware projects in unchanged and appropriate position. Mediastinal and cardiac contours are stable. Perihilar and basal airspace disease and/or atelectasis is slightly increased. Procedure Note Champ Oden MD - 05/11/2024 CLINICAL INDICATION: post p[ TECHNIQUE: XR CHEST 1 VIEW COMPARISON: 16 hours prior FINDINGS: Mediastinal approach chest tubes have been removed. Other support hardwareprojects in unchanged and appropriate position. Mediastinal and cardiaccontours are stable. Perihilar and basal airspace disease and/oratelectasis is slightly increased. IMPRESSION: Slightly increased perihilar opacities, likely atelectasis with somepossible superimposed airspace disease. CRITICAL RESULT: No. COMMUNICATION: Per this written report Drafted by Champ dOen MD on 05/11/2024 9:07 AM Final report signed by Champ Oden MD on 05/11/2024 9:08 AM Maite Austin MD IMG XR PROCEDURES Final Result * (ABNORMAL) POCT glucose meter (05/10/2024 8:57 PM EDT) [facility] POCT Glucose 102(H) 74 - 99 mg/dL 05/10/2024 8:59 PM EDT [facility] Comment:Accuracy of a glucos e result obtained from a capillary whole blood specimen relies upon adequate, non-compromised capillary blood flow. If the capillary glucose result is not consistent with the patient's clinical signs and symptoms, glucose testing should be repeated with either an arterial or venous sample on the glucometer or sent to the main labortory for testing. Comment 05/10/2024 8:59 PM EDT [facility] Field Hockey Coach ID Ernestina Freeman 05/11/19 8:59 PM EDT [facility] Device ID [id number] 05/10/2024 8:59 PM EDT [facility] Specimen Type POC Capillary 05/10/2024 8:59 PM EDT [facility] Blood Capillary blood specimen / Unknown 05/10/2024 8:57 PM EDT 05/10/2024 8:59 PM EDT Maite Austin MD LAB POINT OF CARE TE ST DOCKED DEVICE UNSOLICITED RESULTS Final Result [facility] [address] [place] [address] * (ABNORMAL) POCT glucose meter (05/10/2024 5:38 PM EDT) Pathologist [facility] POCT Glucose 100(H) 74 - 99 mg/dL 05/10/2024 5:40 PM EDT [facility] Comment:Accuracy of a glucos e result obtained from a capillary whole blood specimen relies upon adequate, non-compromised capillary blood flow. If the capillary glucose result is not consistent with the patient's clinical signs and symptoms, glucose testing should be repeated with either an arterial or venous sample on the glucometer or sent to the main labortory for testing. Comment 05/10/2024 5:40 PM EDT [facility] Field Hockey Coach ID Mayco, 05/11/19 5:40 PM EDT [facility] Device ID [id number] 05/10/2024 5:40 PM EDT [facility] Specimen Type POC Capillary 05/10/2024 5:40 PM EDT [facility] Blood Capillary blood specimen / Unknown 05/10/2024 5:38 PM EDT 05/10/2024 5:40 PM EDT Maite Austin MD LAB POINT OF CARE TE ST DOCKED DEVICE UNSOLICITED RESULTS Final Result [facility] [address] [place] [address] * POCT glucose meter (05/10/2024 1:26 PM EDT) [facility] POCT Glucose 92 74 - 99 mg/dL 05/10/2024 1:34 PM EDT [facility] Comment:Accuracy of a glucos e result obtained from a capillary whole blood specimen relies upon adequate, non-compromised capillary blood flow. If the capillary glucose result is not consistent with the patient's clinical signs and symptoms, glucose testing should be repeated with either an arterial or venous sample on the glucometer or sent to the main labortory for testing. Comment 05/10/2024 1:34 PM EDT [facility] Field Hockey Coach ID ThaiJamee, 05/11/19 1:34 PM EDT [facility] Device ID [id number] 05/10/2024 1:34 PM EDT [facility] Specimen Type POC Capillary 05/10/2024 1:34 PM EDT [facility] Blood Capillary blood specimen / Unknown 05/10/2024 1:26 PM EDT 05/10/2024 1:34 PM EDT us Maite Austin MD LAB POINT OF CARE TE ST DOCKED DEVICE UNSOLICITED RESULTS Final Result [facility] [address] [place] [address] * XR Abdomen 1 View (05/10/2024 11:41 AM EDT) Anatomical Region Laterality Modality Body Digital Radiogra phy Impressions 05/10/2024 2:05 PM EDT . Persistent small bowel dilatation . CRITICAL RESULT: No. COMMUNICATION: Per this written report. Drafted by Tato Lee MD on 05/10/2024 2:01 PM Final report signed by Tato Lee MD on 05/10/2024 2:05 PM Narrative 05/10/2024 2:05 PM EDT CLINICAL INDICATION: ileus vs partial SBO TECHNIQUE: Supine radiograph of the abdomen. COMPARISON: CT from 19 result of prior. FINDINGS: The tip of the nasogastric tube is within the proximal stomach. Small amount contrast in the stomach. Persistent dilation of small bowel loops in the central abdomen measuring up to 3.7 cm. There is small amount of gas in the right colon. Paucity of gas in the left colon. Minimal amount of gas in the rectum. No free air or pneumatosis. Procedure Note Tato Lee MD - 05/10/2024 CLINICAL INDICATION: ileus vs partial SBO TECHNIQUE: Supine radiograph of the abdomen. COMPARISON: CT from 19 result of prior. FINDINGS: The tip of the nasogastric tube is within the proximal stomach. Smallamount contrast in the stomach. Persistent dilation of small bowel loopsin the central abdomen measuring up to 3.7 cm. There is small amount ofgas in the right colon. Paucity of gas in the left colon. Minimal amountof gas in the rectum. No free air or pneumatosis. IMPRESSION: . Persistent small bowel dilatation . CRITICAL RESULT: No. COMMUNICATION: Per this written report. Drafted by Tato Lee MD on 05/10/2024 2:01 PM Final report signed by Tato Lee MD on 05/10/2024 2:05 PM Maite Austin MD IMG XR PROCEDURES Final Result * XR Chest 1 View (05/10/2024 9:17 AM EDT) Anatomical Region Laterality Modality Chest Digital Radiogra phy Impressions 05/10/2024 10:02 AM EDT Small residual left-sided pleural effusion. Small right apical pneumothorax in the presence of chest tube. CRITICAL RESULT: No. COMMUNICATION: Per this written report. Drafted by Mary Phelps MD on 05/10/2024 10:00 AM Final report signed by Mary Phelps MD on 05/10/2024 10:02 AM Narrative 05/10/2024 10:02 AM EDT CLINICAL INDICATION: post op TECHNIQUE: XR CHEST 1 VIEW COMPARISON: 05/09/2024 FINDINGS: Gastric suction tube descends into the abdomen. Stable position of pre-existing support hardware. Stable cardiomediastinal silhouette. Left retrocardiac atelectasis. No acute airspace disease in the remaining lungs. Small residual left-sided pleural effusion. No left-sided pneumothorax. Small right apical pneumothorax. Procedure Note Mary Phelps MD - 05/10/2024 CLINICAL INDICATION: post op TECHNIQUE: XR CHEST 1 VIEW COMPARISON: 05/09/2024 FINDINGS: Gastric suction tube descends into the abdomen. Stable position ofpre-existing support hardware. Stable cardiomediastinal silhouette. Leftretrocardiac atelectasis. No acute airspace disease in the remaininglungs. Small residual left-sided pleural effusion. No left-sidedpneumothorax. Small right apical pneumothorax. IMPRESSION: Small residual left-sided pleural effusion. Small right apical pneumothorax in the presence of chest tube. CRITICAL RESULT: No. COMMUNICATION: Per this written report. Drafted by Mary Phelps MD on 05/10/2024 10:00 AM Final report signed by Mary Phelps MD on 05/10/2024 10:02 AM Maite Austin MD IMG XR PROCEDURES Final Result * Phosphorus (05/10/2024 5:41 AM EDT) Phosphorus, Plasma 3.9 2.5 - 4.5 mg/dL 05/10/2024 6:23 AM EDT [facility] Blood Venous blood specimen / Unknown Venipuncture / Unknown 05/10/2024 5:41 AM EDT 05/10/2024 5:53 AM EDT us Lora Llanes [employer] LAB BLOOD ORDERABLES Final Result [facility] [address] [place] [address] * (ABNORMAL) Blood gas panel, venous (05/10/2024 5:41 AM EDT) pH, Venous 7.44(H) 7.32 - 7.43 LAB HEMATOLOGY METHOD 05/10/2024 5:49 AM EDT [facility] pCO2, Venous 39 37 - 52 mmHg LAB HEMATOLOGY METHOD 05/10/2024 5:49 AM EDT [facility] pO2, Venous 34 25 - 40 mmHg LAB HEMATOLOGY METHOD 05/10/2024 5:49 AM EDT [facility] SO2, Measured, Venous 62(L) 65 - 80 % LAB HEMATOLOGY METHOD 05/10/2024 5:49 AM EDT [facility] Base Excess, Venous 1.8 -2.0 - 3.0 mmol/L LAB HEMATOLOGY METHOD 05/10/2024 5:49 AM EDT [facility] Bicarbonate, Calculated, Venous 26 22 - 26 mmol/L LAB HEMATOLOGY METHOD 05/10/2024 5:49 AM EDT [facility] Hematocrit, Whole Blood 27.1(L) 34.0 - 45.0 % LAB HEMATOLOGY METHOD 05/10/2024 5:49 AM EDT [facility] Sodium, Whole Blood 143 136 - 145 mmol/L LAB HEMATOLOGY METHOD 05/10/2024 5:49 AM EDT [facility] Potassium, Whole Blood 3.8 3.6 - 4.9 mmol/L LAB HEMATOLOGY METHOD 05/10/2024 5:49 AM EDT [facility] Chloride, Whole Blood 108(H) 97 - 107 mmol/L LAB HEMATOLOGY METHOD 05/10/2024 5:49 AM EDT [facility] Glucose, Whole Blood 97 74 - 99 mg/dL LAB HEMATOLOGY METHOD 05/10/2024 5:49 AM EDT [facility] [facility] Lactate, Venous, Whole Blood 1.8 0.5 - 2.2 mmol/L LAB HEMATOLOGY METHOD 05/10/2024 5:49 AM EDT [facility] Ionized Calcium, Whole Blood 4.2(L) 4.6 - 5.1 mg/dL LAB HEMATOLOGY METHOD 05/10/2024 5:49 AM EDT [facility] Blood Venous blood specimen / Unknown Venipuncture / Unknown 05/10/2024 5:41 AM EDT 05/10/2024 5:48 AM EDT us Lora Llanes APRN LAB BLOOD ORDERABLES Final Result Performing Organization Address City/[facility]/ZIP Co de Phone Number [facility] [address] [place] [address] * (ABNORMAL) Magnesium, Plasma (05/10/2024 5:41 AM EDT) Magnesium, Plasma 2.5(H) 1.9 - 2.4 mg/dL 05/10/2024 6:23 AM EDT [facility] Blood Venous blood specimen / Unknown Venipuncture / Unknown 05/10/2024 5:41 AM EDT 05/10/2024 5:53 AM EDT us Lora Llanes APRN LAB BLOOD ORDERABLES Final Result [facility] [address] [place] [address] * (ABNORMAL) Hepatic function panel (05/10/2024 5:41 AM EDT) Conjugated Bilirubin, Plasma 0.2 <=0.3 mg/dL 05/10/2024 6:23 AM EDT [facility] Alkaline Phosphatase, Plasma 112(H) 35 - 104 U/L 05/10/2024 6:23 AM EDT [facility] Total Bilirubin, Plasma 0.5 0.2 - 1.1 mg/dL 05/10/2024 6:23 AM EDT [facility] Albumin, Plasma 2.7(L) 3.5 - 5.2 g/dL 05/10/2024 6:23 AM EDT [facility] Total Protein 5.7(L) 6.3 - 7.9 g/dL 05/10/2024 6:23 AM EDT [facility] ALT, Plasma 45(H) 10 - 35 U/L 05/10/2024 6:23 AM EDT [facility] AST, Plasma 201(H) 10 - 35 U/L 05/10/2024 6:23 AM EDT [facility] Blood Venous blood specimen / Unknown Venipuncture / Unknown 05/10/2024 5:41 AM EDT 05/10/2024 5:53 AM EDT us Maite Austin MD LAB BLOOD ORDERABLES Final Resu lt [facility] [address] [place] [address] * (ABNORMAL) Basic metabolic panel (05/10/2024 5:41 AM EDT) Glucose, Plasma 101(H) 74 - 99 mg/dL 05/10/2024 6:23 AM EDT [facility] BUN, Plasma 28(H) 7 - 21 mg/dL 05/10/2024 6:23 AM EDT [facility] Creatinine, Plasma 1.28(H) 0.60 - 1.10 mg/dL 05/10/2024 6:23 AM EDT [facility] BUN/Creatinine Ratio 22 05/10/2024 6:23 AM EDT [facility] Sodium, Plasma 143 136 - 145 mmol/L 05/10/2024 6:23 AM EDT [facility] Potassium, Plasma 4.0 3.6 - 4.9 mmol/L 05/10/2024 6:23 AM EDT [facility] Chloride, Plasma 108(H) 97 - 107 mmol/L 05/10/2024 6:23 AM EDT [facility] CO2, Plasma 24 22 - 29 mmol/L 05/10/2024 6:23 AM EDT [facility] Anion Gap 11 6 - 16 mmol/L 05/10/2024 6:23 AM EDT [facility] Total Calcium, Plasma 7.8(L) 8.9 - 10.2 mg/dL 05/10/2024 6:23 AM EDT [facility] eGFRcr 49.9 mL/min/1.7 3m*2 05/10/2024 6:23 AM EDT [facility] Comment:Reported eGFRcr in m L/min/1.73m2 is based the CKD-EPI 2020 equation that does not use a race coefficient. Blood Venous blood specimen / Unknown Venipuncture / Unknown 05/10/2024 5:41 AM EDT 05/10/2024 5:53 AM EDT us Maite Austin MD LAB BLOOD ORDERABLES Final Resu lt [facility] [address] [place] [address] * (ABNORMAL) Hemogram (CBC) (05/10/2024 5:41 AM EDT) WBC Count 22.88(H) 3.70 - 10.30 10*3/uL LAB HEMATOLOGY METHOD 05/10/2024 6:05 AM EDT [facility] RBC Count 3.06(L) 3.90 - 5.20 10*6/uL LAB HEMATOLOGY METHOD 05/10/2024 6:05 AM EDT [facility] HGB 9.0(L) 11.2 - 15.7 g/dL LAB HEMATOLOGY METHOD 05/10/2024 6:05 AM EDT [facility] HCT 26.4(L) 34.0 - 45.0 % LAB HEMATOLOGY METHOD 05/10/2024 6:05 AM EDT [facility] Platelet Count 149(L) 155 - 369 10*3/uL LAB HEMATOLOGY METHOD 05/10/2024 6:05 AM EDT [facility] MCV 86 79 - 98 fL LAB HEMATOLOGY METHOD 05/10/2024 6:05 AM EDT [facility] MCH 29.4 26.0 - 32.0 pg LAB HEMATOLOGY METHOD 05/10/2024 6:05 AM EDT [facility] MCHC 34.1 30.7 - 35.5 g/dL LAB HEMATOLOGY METHOD 05/10/2024 6:05 AM EDT [facility] RDW 15.7(H) 11.5 - 14.5 % LAB HEMATOLOGY METHOD 05/10/2024 6:05 AM EDT [facility] MPV 11.8 8.8 - 12.5 fL LAB HEMATOLOGY METHOD 05/10/2024 6:05 AM EDT [facility] nRBC 0.6(H) <=0.0 per 100 WBCs LAB HEMATOLOGY METHOD 05/10/2024 6:05 AM EDT [facility] Blood Venous blood specimen / Unknown Venipuncture / Unknown 05/10/2024 5:41 AM EDT 05/10/2024 5:56 AM EDT us Maite Austin MD LAB BLOOD ORDERABLES Final Resu lt [facility] [address] [place] [address] * (ABNORMAL) POCT glucose meter (05/10/2024 12:09 AM EDT) POCT Glucose 112(H) 74 - 99 mg/dL 05/10/2024 12:10 AM EDT [facility] Comment:Accuracy of a glucos e result obtained from a capillary whole blood specimen relies upon adequate, non-compromised capillary blood flow. If the capillary glucose result is not consistent with the patient's clinical signs and symptoms, glucose testing should be repeated with either an arterial or venous sample on the glucometer or sent to the main labortory for testing. Comment 05/10/2024 12:10 AM EDT [facility] Field Hockey Coach ID Betty Young [id number] 12:10 AM EDT [facility] Device ID [id number] 05/10/2024 12:10 AM EDT [facility] Specimen Type POC Capillary 05/10/2024 12:10 AM EDT [facility] Blood Capillary blood specimen / Unknown 05/10/2024 12:09 AM EDT 05/10/2024 12:10 AM EDT Maite Austin MD LAB POINT OF CARE TE ST DOCKED DEVICE UNSOLICITED RESULTS Final Result Performing Organization Address [facility] de Phone Number [facility] [address] [place] [address] * POCT glucose meter (05/09/2024 5:15 PM EDT) [facility] POCT Glucose 89 74 - 99 mg/dL 05/09/2024 5:17 PM EDT [facility] Comment:Accuracy of a glucos e result obtained from a capillary whole blood specimen relies upon adequate, non-compromised capillary blood flow. If the capillary glucose result is not consistent with the patient's clinical signs and symptoms, glucose testing should be repeated with either an arterial or venous sample on the glucometer or sent to the main labortory for testing. Comment 05/09/2024 5:17 PM EDT [facility] Field Hockey Coach ID Luca Em 05/10/19 5:17 PM EDT [facility] Device ID [id number] 05/09/2024 5:17 PM EDT [facility] Specimen Type POC Capillary 05/09/2024 5:17 PM EDT [facility] Blood Capillary blood specimen / Unknown 05/09/2024 5:15 PM EDT 05/09/2024 5:17 PM EDT Maite Austin MD LAB POINT OF CARE TE ST DOCKED DEVICE UNSOLICITED RESULTS Final Result Performing Organization Address [facility] de Phone Number [facility] [address] [place] [address] * CT Abdomen Pelvis wo IV Contrast (05/09/2024 4:29 PM EDT) Anatomical Region Laterality Modality Abdomen, Pelvis Computed Tomogra phy Impressions 05/09/2024 5:28 PM EDT Dilatation of multiple small bowel loops representing ileus or incomplete obstruction. Liquid stool in the colon representing diarrhea. Diffuse hepatic steatosis CRITICAL RESULT: No. COMMUNICATION: Per this written report. Drafted by Camila Barth MD on 05/09/2024 5:25 PM Final report signed by Camila Barth MD on 05/09/2024 5:28 PM Narrative 05/09/2024 5:28 PM EDT CLINICAL INDICATION: Bowel obstruction suspected TECHNIQUE: Multiple axial CT images were obtained from lung bases through pubic symphysis without the administration of IV contrast. Reformatted images in the coronal and sagittal planes were generated from the axial data set to facilitate diagnostic accuracy. Total DLP (Dose-Length Product): 668.65 mGy.cm. Please note: The reported value represents the total of one or more individual components during the CT acquisition on this date and at this time, and as such, the same value may appear in more than one CT report depending on the interpreting/reporting physicians. COMPARISON: None. FINDINGS: Lower Chest: Small left pleural effusion with bilateral lower lobe consolidations. Groundglass opacities in the imaged lungs. Mediastinal drains and bilateral chest tubes. Trace right pneumothorax is partially noted Analysis of the abdominopelvic viscera is limited by the absence of intravenous contrast material. Solid Abdominal Organs: Diffuse hepatic steatosis. Absent gallbladder. Unremarkable spleen. No suspicious pancreatic findings. No suspicious adrenal findings. No suspicious renal mass lesions. No hydronephrosis. GI Tract/Mesentery/Peritoneum: Dilatation of multiple small bowel loops. There is liquid stool in the colon consistent with diarrhea. Normal appendix. No pneumatosis. Pelvic Viscera: No suspicious pelvic mass lesions. Lymph Nodes/Vasculature: No lymphadenopathy by CT size criteria. The aortoiliac vasculature is normal in caliber. Free Fluid: No ascites. Musculoskeletal and Body Wall: No aggressive or suspicious findings. Procedure Note Camila Barth MD - 05/09/2024 CLINICAL INDICATION: Bowel obstruction suspected TECHNIQUE: Multiple axial CT images were obtained from lung bases through pubicsymphysis without the administration of IV contrast. Reformatted images inthe coronal and sagittal planes were generated from the axial data set tofacilitate diagnostic accuracy. Total DLP (Dose-Length Product): 668.65 mGy.cm. Please note: The reportedvalue represents the total of one or more individual components during theCT acquisition on this date and at this time, and as such, the same valuemay appear in more than one CT report depending on theinterpreting/reporting physicians. COMPARISON: None. FINDINGS: Lower Chest: Small left pleural effusion with bilateral lower lobeconsolidations. Groundglass opacities in the imaged lungs. Mediastinaldrains and bilateral chest tubes. Trace right pneumothorax is partiallynoted Analysis of the abdominopelvic viscera is limited by the absence ofintravenous contrast material. Solid Abdominal Organs: Diffuse hepatic steatosis. Absent gallbladder.Unremarkable spleen. No suspicious pancreatic findings. No suspiciousadrenal findings. No suspicious renal mass lesions. No hydronephrosis. GI Tract/Mesentery/Peritoneum: Dilatation of multiple small bowel loops.There is liquid stool in the colon consistent with diarrhea. Normalappendix. No pneumatosis. Pelvic Viscera: No suspicious pelvic mass lesions. Lymph Nodes/Vasculature: No lymphadenopathy by CT size criteria. Theaortoiliac vasculature is normal in caliber. Free Fluid: No ascites. Musculoskeletal and Body Wall: No aggressive or suspicious findings. IMPRESSION: Dilatation of multiple small bowel loops representing ileus or incompleteobstruction. Liquid stool in the colon representing diarrhea. Diffuse hepatic steatosis CRITICAL RESULT: No. COMMUNICATION: Per this written report. Drafted by Camila Barth MD on 05/09/2024 5:25 PM Final report signed by Camila Barth MD on 05/09/2024 5:28 PM Reyna Obregon [employer] IMG CT PROCEDURES Final R esult * XR Abdomen 1 View (Adult Inpatients per policy) (05/09/2024 4:00 PM EDT) Anatomical Region Laterality Modality Body Digital Radiogra phy Impressions 05/09/2024 4:17 PM EDT The tip of the NG/OG tube is within the mid stomach CRITICAL RESULT: No. COMMUNICATION: Per this written report. By electronically signing this report, I, the attending physician, attest that I have personally reviewed the images/data for the above examination(s) and agree with the final edited report. Drafted by Sanya Urbano MD on 05/09/2024 4:05 PM Final report signed by Gurdeep Adam MD on 05/09/2024 4:17 PM Narrative 05/09/2024 4:17 PM EDT CLINICAL INDICATION: Confirm proper placement of NG/OG tube TECHNIQUE: Supine radiograph of the abdomen. COMPARISON: Abdominal radiograph 3 hours prior FINDINGS: Limited [id number] abdominal radiograph for the purpose of locating tube position. The tip of the NG/OG tube is within the mid stomach. The sidehole is below the gastroesophageal junction. Unchanged lower lung keene. Multiple thoracostomy tubes project in similar position. Marked decrease in gastric distention. Unchanged gas containing dilated segments of small bowel in the central abdomen. No overt pneumatosis or pneumoperitoneum. Procedure Note Gurdeep Adam MD - 05/09/2024 CLINICAL INDICATION: Confirm proper placement of NG/OG tube TECHNIQUE: Supine radiograph of the abdomen. COMPARISON: Abdominal radiograph 3 hours prior FINDINGS: Limited [id number] abdominal radiograph for the purpose of locatingtube position. The tip of the NG/OG tube is within the mid stomach. The sidehole is belowthe gastroesophageal junction. Unchanged lower lung keene. Multiplethoracostomy tubes project in similar position. Marked decrease in gastricdistention. Unchanged gas containing dilated segments of small bowel inthe central abdomen. No overt pneumatosis or pneumoperitoneum. IMPRESSION: The tip of the NG/OG tube is within the mid stomach CRITICAL RESULT: No. COMMUNICATION: Per this written report. By electronically signing this report, I, the attending physician, attestthat I have personally reviewed the images/data for the aboveexamination(s) and agree with the final edited report. Drafted by Sanya Urbano MD on 05/09/2024 4:05 PM Final report signed by Gurdeep Adam MD on 05/09/2024 4:17 PM us Maite Austin MD IMG XR PROCEDURES Final Result * (ABNORMAL) POCT venous blood gas gem (05/09/2024 3:15 PM EDT) pH, Venous 7.42 7.32 - 7.43 05/09/2024 3:17 PM EDT [facility] pCO2, Venous 44 37 - 52 mm Hg 05/09/2024 3:17 PM EDT [facility] pO2, Venous <30 25 - 40 mm Hg 05/09/2024 3:17 PM EDT [facility] SO2, Venous 24(L) 65 - 80 % 05/09/2024 3:17 PM EDT [facility] Base Excess/Deficit, Venous 3.6(H) -2 - 3 mmol/L 05/09/2024 3:17 PM EDT [facility] HCO3, Venous 28.5(H) 22 - 26 mmol/L 05/09/2024 3:17 PM EDT [facility] Hemoglobin, Venous 9.7(L) 11.2 - 15.7 g/dL 05/09/2024 3:17 PM EDT [facility] Hematocrit, Venous 29.0(L) 34.0 - 45.0 % 05/09/2024 3:17 PM EDT [facility] Sodium, Venous 143 136 - 145 mmol/L 05/09/2024 3:17 PM EDT [facility] Potassium, Venous 4.1 3.6 - 4.9 mmol/L 05/09/2024 3:17 PM EDT [facility] POCT Chloride, Venous 107 97 - 107 mmol/L 05/09/2024 3:17 PM EDT [facility] Glucose, Venous 89 74 - 99 mg/dL 05/09/2024 3:17 PM EDT [facility] Ionized Calcium, Venous 4.4(L) 4.6 - 5.1 mg/dL 05/09/2024 3:17 PM EDT [facility] Lactate, Venous 3.3(H) 0.5 - 2.2 mmol/L 05/09/2024 3:17 PM EDT [facility] Body Temperature 37.0 Celsius 05/09/2024 3:17 PM EDT [facility] pH, Temp Corrected, Venous 7.42 7.32 - 7.43 05/09/2024 3:17 PM EDT [facility] pCO2, Temp Corrected, Venous 44 37 - 52 mm Hg 05/09/2024 3:17 PM EDT [facility] Field Hockey Coach ID Alka Corona 05/09/2024 3:17 PM EDT [facility] Acknowledged, Notified By RN 05/09/2024 3:17 PM EDT [facility] Critical Notify Time 1515 05/09/2024 3:17 PM EDT [facility] Critical Readback Y 05/09/2024 3:17 PM EDT [facility] Blood, Venous Whole blood specimen / Unknown 05/09/2024 3:15 PM EDT 05/09/2024 3:17 PM EDT Maite Austin MD LAB POINT OF CARE TE ST DOCKED DEVICE UNSOLICITED RESULTS Final Result Performing Organization Address [facility] de Phone Number [facility] [address] [place] [address] * POCT glucose meter (05/09/2024 2:21 PM EDT) [facility] POCT Glucose 93 74 - 99 mg/dL 05/09/2024 2:22 PM EDT [facility] Comment:Accuracy of a glucos e result obtained from a capillary whole blood specimen relies upon adequate, non-compromised capillary blood flow. If the capillary glucose result is not consistent with the patient's clinical signs and symptoms, glucose testing should be repeated with either an arterial or venous sample on the glucometer or sent to the main labortory for testing. Comment 05/09/2024 2:22 PM EDT [facility] Field Hockey Coach ID Luca Em 05/10/19 2:22 PM EDT [facility] LAB Device ID [id number] 05/09/2024 2:22 PM EDT [facility] Specimen Type POC Venous 05/09/2024 2:22 PM EDT [facility] Blood Venous blood specimen / Unknown 05/09/2024 2:21 PM EDT 05/09/2024 2:22 PM EDT us Maite Austin MD LAB POINT OF CARE TE ST DOCKED DEVICE UNSOLICITED RESULTS Final Result Performing Organization Address [facility] Co de Phone Number [facility] [address] [place] [address] * (ABNORMAL) Hemoglobin and hematocrit, blood (05/09/2024 2:21 PM EDT) [facility] HGB 9.8(L) 11.2 - 15.7 g/dL LAB HEMATOLOGY METHOD 05/09/2024 3:09 PM EDT [facility] HCT 28.0(L) 34.0 - 45.0 % LAB HEMATOLOGY METHOD 05/09/2024 3:09 PM EDT [facility] Blood Venous blood specimen / Unknown Venipuncture / Unknown 05/09/2024 2:21 PM EDT 05/09/2024 2:27 PM EDT Maite Ausitn MD LAB BLOOD ORDERABLES Final Resu lt Performing Organization Address [facility] Co de Phone Number [facility] [address] [place] [address] * POCT glucose meter (05/09/2024 12:42 PM EDT) [facility] POCT Glucose 97 74 - 99 mg/dL 05/09/2024 12:43 PM EDT [facility] Comment:Accuracy of a glucos e result obtained from a capillary whole blood specimen relies upon adequate, non-compromised capillary blood flow. If the capillary glucose result is not consistent with the patient's clinical signs and symptoms, glucose testing should be repeated with either an arterial or venous sample on the glucometer or sent to the main labortory for testing. Comment 05/09/2024 12:43 PM EDT [facility] Field Hockey Coach ID Katie Quiroz 05/09/2024 12:43 PM EDT [facility] Device ID [id number] 05/09/2024 12:43 PM EDT [facility] Specimen Type POC Venous 05/09/2024 12:43 PM EDT [facility] Blood Venous blood specimen / Unknown 05/09/2024 12:42 PM EDT 05/09/2024 12:43 PM EDT Maite Austin MD LAB POINT OF CARE TE ST DOCKED DEVICE UNSOLICITED RESULTS Final Result Performing Organization Address [facility] Co de Phone Number [facility] [address] [place] [address] * XR Abdomen 1 View (05/09/2024 12:21 PM EDT) Anatomical Region Laterality Modality Body Digital Radiogra phy Impressions 05/09/2024 1:59 PM EDT Abnormal bowel gas pattern. Small bowel ileus versus small bowel obstruction. Moderate gaseous distention of stomach. CRITICAL RESULT: No. COMMUNICATION: Per this written report. Drafted by Gurdeep Adam MD on 05/09/2024 1:54 PM Final report signed by Gurdeep Adam MD on 05/09/2024 1:59 PM Narrative 05/09/2024 1:59 PM EDT CLINICAL INDICATION: nausea w/ vomiting, post cardiac surgery. TECHNIQUE: XR ABDOMEN 1 VIEW COMPARISON: Chest x-ray 05/09/2024. FINDINGS: There is moderate gaseous distention of the stomach. There is moderate gas within dilated and nondilated small bowel. There is gas and fecal material within nondilated colon. There is no pneumoperitoneum or pneumatosis. No acute bony findings. Unchanged visualized lower chest. Procedure Note Gurdeep Adam MD - 05/09/2024 CLINICAL INDICATION: nausea w/ vomiting, post cardiac surgery. TECHNIQUE: XR ABDOMEN 1 VIEW COMPARISON: Chest x-ray 05/09/2024. FINDINGS: There is moderate gaseous distention of the stomach. There is moderate gaswithin dilated and nondilated small bowel. There is gas and fecal materialwithin nondilated colon. There is no pneumoperitoneum or pneumatosis. Noacute bony findings. Unchanged visualized lower chest. IMPRESSION: Abnormal bowel gas pattern. Small bowel ileus versus small bowelobstruction. Moderate gaseous distention of stomach. CRITICAL RESULT: No. COMMUNICATION: Per this written report. Drafted by Gurdeep Adam MD on 05/09/2024 1:54 PM Final report signed by Gurdeep Adam MD on 05/09/2024 1:59 PM Reyna Obregon [employer] IMG XR PROCEDURES Final R esult * (ABNORMAL) POCT glucose meter (05/09/2024 12:18 PM EDT) POCT Glucose 105(H) 74 - 99 mg/dL 05/09/2024 12:20 PM EDT [facility] Comment:Accuracy of a glucos e result obtained from a capillary whole blood specimen relies upon adequate, non-compromised capillary blood flow. If the capillary glucose result is not consistent with the patient's clinical signs and symptoms, glucose testing should be repeated with either an arterial or venous sample on the glucometer or sent to the main labortory for testing. Comment 05/09/2024 12:20 PM EDT [facility] Field Hockey Coach ID Luca Em 05/10/19 12:20 PM EDT [facility] Device ID [id number] 05/09/2024 12:20 PM EDT [facility] Specimen Type POC Venous 05/09/2024 12:20 PM EDT [facility] Blood Venous blood specimen / Unknown 05/09/2024 12:18 PM EDT 05/09/2024 12:20 PM EDT Maite Austin MD LAB POINT OF CARE TE ST DOCKED DEVICE UNSOLICITED RESULTS Final Result Performing Organization Address City/[facility] Co de Phone Number [facility] [address] [place] [address] * (ABNORMAL) POCT glucose meter (05/09/2024 12:06 PM EDT) [facility] POCT Glucose 124(H) 74 - 99 mg/dL 05/09/2024 12:19 PM EDT [facility] Comment:Accuracy of a glucos e result obtained from a capillary whole blood specimen relies upon adequate, non-compromised capillary blood flow. If the capillary glucose result is not consistent with the patient's clinical signs and symptoms, glucose testing should be repeated with either an arterial or venous sample on the glucometer or sent to the main labortory for testing. Comment 05/09/2024 12:19 PM EDT [facility] Field Hockey Coach ID Luca Em 05/10/19 12:19 PM EDT [facility] Device ID [id number] 05/09/2024 12:19 PM EDT [facility] Specimen Type POC Capillary 05/09/2024 12:19 PM EDT [facility] Blood Capillary blood specimen / Unknown 05/09/2024 12:06 PM EDT 05/09/2024 12:19 PM EDT Maite Austin MD LAB POINT OF CARE TE ST DOCKED DEVICE UNSOLICITED RESULTS Final Result Performing Organization Address City/[facility]/ZIP Co de Phone Number [facility] [address] [place] [address] * (ABNORMAL) POCT glucose meter (05/09/2024 12:05 PM EDT) [facility] POCT Glucose 198(H) 74 - 99 mg/dL 05/09/2024 12:06 PM EDT [facility] Comment:Accuracy of a glucos e result obtained from a capillary whole blood specimen relies upon adequate, non-compromised capillary blood flow. If the capillary glucose result is not consistent with the patient's clinical signs and symptoms, glucose testing should be repeated with either an arterial or venous sample on the glucometer or sent to the main labortory for testing. Comment 05/09/2024 12:06 PM EDT [facility] Field Hockey Coach ID Luca mE 05/10/19 12:06 PM EDT [facility] Device ID [id number] 05/09/2024 12:06 PM EDT [facility] Specimen Type POC Capillary 05/09/2024 12:06 PM EDT [facility] Blood Capillary blood specimen / Unknown 05/09/2024 12:05 PM EDT 05/09/2024 12:06 PM EDT Maite Austin MD LAB POINT OF CARE TE ST DOCKED DEVICE UNSOLICITED RESULTS Final Result [facility] [address] [place] [address] * (ABNORMAL) POCT glucose meter (05/09/2024 12:02 PM EDT) [facility] POCT Glucose 42(LL) 74 - 99 mg/dL 05/09/2024 12:03 PM EDT [facility] Comment:Accuracy of a glucos e result obtained from a capillary whole blood specimen relies upon adequate, non-compromised capillary blood flow. If the capillary glucose result is not consistent with the patient's clinical signs and symptoms, glucose testing should be repeated with either an arterial or venous sample on the glucometer or sent to the main labortory for testing. Comment 05/09/2024 12:03 PM EDT [facility] Field Hockey Coach ID Luca Em 05/10/19 12:03 PM EDT [facility] Device ID [id number] 05/09/2024 12:03 PM EDT [facility] Specimen Type POC Capillary 05/09/2024 12:03 PM EDT [facility] Blood Capillary blood specimen / Unknown 05/09/2024 12:02 PM EDT 05/09/2024 12:03 PM EDT Maite Austin MD LAB POINT OF CARE TE ST DOCKED DEVICE UNSOLICITED RESULTS Final Result Performing Organization Address [facility] Co de Phone Number HEALTHCARE LAB [address] [place] [address] * (ABNORMAL) POCT glucose meter (05/09/2024 12:00 PM EDT) [facility] POCT Glucose 37(LL) 74 - 99 mg/dL 05/09/2024 12:01 PM EDT [facility] Comment:Accuracy of a glucos e result obtained from a capillary whole blood specimen relies upon adequate, non-compromised capillary blood flow. If the capillary glucose result is not consistent with the patient's clinical signs and symptoms, glucose testing should be repeated with either an arterial or venous sample on the glucometer or sent to the main labortory for testing. Comment 05/09/2024 12:01 PM EDT [facility]ALTH[facility]ARE LAB Field Hockey Coach ID Luca Em 05/10/19 12:01 PM EDT [facility] Device ID [id number] 05/09/2024 12:01 PM EDT [facility] Specimen Type POC Capillary 05/09/2024 12:01 PM EDT [facility] Blood Capillary blood specimen / Unknown 05/09/2024 12:00 PM EDT 05/09/2024 12:01 PM EDT Maite Austin MD LAB POINT OF CARE TE ST DOCKED DEVICE UNSOLICITED RESULTS Final Result Performing Organization Address City/[facility]/ZIP Co de Phone Number [facility] [address] [place] [address] * POCT glucose meter (05/09/2024 11:32 AM EDT) [facility] POCT Glucose 77 74 - 99 mg/dL 05/09/2024 11:33 AM EDT [facility] Comment:Accuracy of a glucos e result obtained from a capillary whole blood specimen relies upon adequate, non-compromised capillary blood flow. If the capillary glucose result is not consistent with the patient's clinical signs and symptoms, glucose testing should be repeated with either an arterial or venous sample on the glucometer or sent to the main labortory for testing. Comment 05/09/2024 11:33 AM EDT [facility]ALTHCARE LAB Field Hockey Coach ID Luca Em 05/10/19 11:33 AM EDT [facility]ALTH[facility] LAB Device ID [id number] 05/09/2024 11:33 AM EDT [facility] Specimen Type POC Venous 05/09/2024 11:33 AM EDT [facility] Blood Venous blood specimen / Unknown 05/09/2024 11:32 AM EDT 05/09/2024 11:33 AM EDT us Maite Austin MD LAB POINT OF CARE TE ST DOCKED DEVICE UNSOLICITED RESULTS Final Result Performing Organization Address City/[facility] Co de Phone Number [facility] [address] [place] [address] * BETA HYDROXYBUTYRIC ACID (05/09/2024 11:30 AM EDT) Beta-Hydroxybut yric Acid, Plasma 0.1 <=0.27 mmol/L 05/09/2024 6:19 PM EDT [facility] Blood Venous blood specimen / Unknown Venipuncture / Unknown 05/09/2024 11:30 AM EDT 05/09/2024 12:34 PM EDT Gregg Burdick MD LAB BLOOD ORDERABLES Final Resu lt [facility] [address] [place] [address] * Phosphorus, Plasma (05/09/2024 11:30 AM EDT) Phosphorus, Plasma 3.8 2.5 - 4.5 mg/dL 05/09/2024 1:20 PM EDT [facility] Blood Venous blood specimen / Unknown Venipuncture / Unknown 05/09/2024 11:30 AM EDT 05/09/2024 12:34 PM EDT us Maite Austin MD LAB BLOOD ORDERABLES Final Resu lt [facility] [address] [place] [address] * (ABNORMAL) Basic Metabolic Panel, Plasma (05/09/2024 11:30 AM EDT) Glucose, Plasma 83 74 - 99 mg/dL 05/09/2024 1:20 PM EDT [facility] BUN, Plasma 33(H) 7 - 21 mg/dL 05/09/2024 1:20 PM EDT [facility] Creatinine, Plasma 1.62(H) 0.60 - 1.10 mg/dL 05/09/2024 1:20 PM EDT [facility] BUN/Creatinine Ratio 20 05/09/2024 1:20 PM EDT [facility] Sodium, Plasma 145 136 - 145 mmol/L 05/09/2024 1:20 PM EDT [facility] Potassium, Plasma 3.8 3.6 - 4.9 mmol/L 05/09/2024 1:20 PM EDT [facility] Chloride, Plasma 106 97 - 107 mmol/L 05/09/2024 1:20 PM EDT [facility] CO2, Plasma 25 22 - 29 mmol/L 05/09/2024 1:20 PM EDT [facility] Anion Gap 14 6 - 16 mmol/L 05/09/2024 1:20 PM EDT [facility] Total Calcium, Plasma 8.1(L) 8.9 - 10.2 mg/dL 05/09/2024 1:20 PM EDT [facility] eGFRcr 37.6 mL/min/1.7 3m*2 05/09/2024 1:20 PM EDT [facility] Comment:Reported eGFRcr in m L/min/1.73m2 is based the CKD-EPI 2020 equation that does not use a race coefficient. Blood Venous blood specimen / Unknown Venipuncture / Unknown 05/09/2024 11:30 AM EDT 05/09/2024 12:34 PM EDT us Maite Asutin MD LAB BLOOD ORDERABLES Final Resu lt [facility] [address] [place] [address] * (ABNORMAL) Magnesium (05/09/2024 11:30 AM EDT) Magnesium, Plasma 2.8(H) 1.9 - 2.4 mg/dL 05/09/2024 1:20 PM EDT [facility] Blood Venous blood specimen / Unknown Venipuncture / Unknown 05/09/2024 11:30 AM EDT 05/09/2024 12:34 PM EDT us Maite Austin MD LAB BLOOD ORDERABLES Final Resu lt Performing Organization Address [facility]/ZIP Co de Phone Number [facility] [address] [place] [address] * (ABNORMAL) Prealbumin (05/09/2024 11:30 AM EDT) Prealbumin, Plasma 6.5(L) 20.0 - 41.0 mg/dL 05/09/2024 1:20 PM EDT [facility] Blood Venous blood specimen / Unknown Venipuncture / Unknown 05/09/2024 11:30 AM EDT 05/09/2024 12:34 PM EDT us Maite Austin MD LAB BLOOD ORDERABLES Final Resu lt Performing Organization Address [facility]/ZIP Co de Phone Number [facility] [address] [place] [address] * (ABNORMAL) Hepatic function panel (05/09/2024 11:30 AM EDT) Conjugated Bilirubin, Plasma 0.3 <=0.3 mg/dL 05/09/2024 1:20 PM EDT [facility] Alkaline Phosphatase, Plasma 101 35 - 104 U/L 05/09/2024 1:20 PM EDT [facility] Total Bilirubin, Plasma 0.8 0.2 - 1.1 mg/dL 05/09/2024 1:20 PM EDT [facility] Albumin, Plasma 2.8(L) 3.5 - 5.2 g/dL 05/09/2024 1:20 PM EDT [facility] Total Protein 5.4(L) 6.3 - 7.9 g/dL 05/09/2024 1:20 PM EDT [facility] ALT, Plasma 54(H) 10 - 35 U/L 05/09/2024 1:20 PM EDT [facility] AST, Plasma 255(H) 10 - 35 U/L 05/09/2024 1:20 PM EDT [facility] Comment:Hemolyzed, result ma y be falsely increased. Blood Venous blood specimen / Unknown Venipuncture / Unknown 05/09/2024 11:30 AM EDT 05/09/2024 12:34 PM EDT us Reyna Obregon [employer] LAB BLOOD ORDERABLES Namrata l Result [facility] [address] [place] [address] * [place] CRITICAL CARE, ADDL 30 MIN (05/09/2024 11:17 AM EDT) Narrative Gregg Burdick MD - 05/09/2024 11:17 AM EDT Gregg Burdick MD 05/10/2024 8:13 AM Critical Care Performed by: Gregg Burdick MD Authorized by: Gregg Burdick MD Critical care provider statement: Critical care time (minutes): 40 Critical care time was exclusive of: Separately billable procedures and treating other patients and teaching time Critical care was time spent personally by me on the following activities: Development of treatment plan with patient or surrogate, discussions with primary provider, evaluation of patient's response to treatment, examination of patient, obtaining history from patient or surrogate, ordering and performing treatments and interventions, ordering and review of laboratory studies and ordering and review of radiographic studies I assumed subsequent critical care for this patient from a provider in my division, on the same day: yes Critical care statement: I saw and evaluated the patient with the resident/ fellow. I discussed the case with the resident/ fellow and agree with the findings and plan as documented. us Gregg Burdick MD IN CLINIC/BEDSIDE ORDERABLES Fi nal Result * POCT glucose meter (05/09/2024 11:06 AM EDT) POCT Glucose 76 74 - 99 mg/dL 05/09/2024 11:08 AM EDT [facility] Comment:Accuracy of a glucos e result obtained from a capillary whole blood specimen relies upon adequate, non-compromised capillary blood flow. If the capillary glucose result is not consistent with the patient's clinical signs and symptoms, glucose testing should be repeated with either an arterial or venous sample on the glucometer or sent to the main labortory for testing. Comment 05/09/2024 11:08 AM EDT [facility]ALTH[facility]ARE LAB Field Hockey Coach ID Luca Em 05/10/19 11:08 AM EDT [facility]ARE LAB Device ID [id number] 05/09/2024 11:08 AM EDT [facility] Specimen Type POC Capillary 05/09/2024 11:08 AM EDT [facility] Blood Capillary blood specimen / Unknown 05/09/2024 11:06 AM EDT 05/09/2024 11:08 AM EDT us Maite Austin MD LAB POINT OF CARE TE ST DOCKED DEVICE UNSOLICITED RESULTS Final Result Performing Organization Address City/State/[facility] Co de Phone Number HEALTHCARE LAB [address] [place] [address] * PERIPHERAL IV (SMARTFORM LINK) (05/09/2024 10:10 AM EDT) Narrative Rhona Abrams RN - 05/09/2024 10:10 AM EDT Rhona Abrams RN 05/09/2024 10:11 AM Insert peripheral IV Performed by: Rhona Abrams RN Authorized by: Maite Austin MD Hand hygiene: Hand hygiene performed prior to insertion Inserted using aseptic techniques: Yes Preparation: Skin prepped with chg Orientation: Right and upper (cephalic) Location: Arm Catheter placed: Peripheral IV Catheter size: 20g/1.16in Line Technique: Ultrasound Guidance Number of attempts: 2 IV flushes: Without difficulty and positive blood return noted and IV luer locked Patient tolerance: Patient tolerated the procedure well and there were no complications IV site covered with: Transparent semipermeable dressing Comments: By Michelle T. RN Maite Austin MD IV THERAPY ORDERABLES Final Res ult * (ABNORMAL) POCT glucose meter (05/09/2024 10:06 AM EDT) [facility] POCT Glucose 137(H) 74 - 99 mg/dL 05/09/2024 10:08 AM EDT [facility] Comment:Accuracy of a glucos e result obtained from a capillary whole blood specimen relies upon adequate, non-compromised capillary blood flow. If the capillary glucose result is not consistent with the patient's clinical signs and symptoms, glucose testing should be repeated with either an arterial or venous sample on the glucometer or sent to the main labortory for testing. Comment 05/09/2024 10:08 AM EDT [facility]ALTHCARE LAB Field Hockey Coach ID Luca Em 05/10/19 10:08 AM EDT HEALTHCARE LAB Device ID [id number] 05/09/2024 10:08 AM EDT [facility] Specimen Type POC Capillary 05/09/2024 10:08 AM EDT [facility] Blood Capillary blood specimen / Unknown 05/09/2024 10:06 AM EDT 05/09/2024 10:08 AM EDT Maite Austin MD LAB POINT OF CARE TE ST DOCKED DEVICE UNSOLICITED RESULTS Final Result Performing Organization Address City/State/[facility] Co de Phone Number HEALTHCARE LAB [address] [place] [address] * (ABNORMAL) POCT glucose meter (05/09/2024 9:48 AM EDT) [facility] POCT Glucose 222(H) 74 - 99 mg/dL 05/09/2024 9:49 AM EDT [facility] Comment:Accuracy of a glucos e result obtained from a capillary whole blood specimen relies upon adequate, non-compromised capillary blood flow. If the capillary glucose result is not consistent with the patient's clinical signs and symptoms, glucose testing should be repeated with either an arterial or venous sample on the glucometer or sent to the main labortory for testing. Comment 05/09/2024 9:49 AM EDT [facility] Field Hockey Coach ID Rosmery Oneal 025 9:49 AM EDT [facility] Device ID [id number] 05/09/2024 9:49 AM EDT [facility] Specimen Type POC Capillary 05/09/2024 9:49 AM EDT [facility] Blood Capillary blood specimen / Unknown 05/09/2024 9:48 AM EDT 05/09/2024 9:49 AM EDT us Maite Austin MD LAB POINT OF CARE TE ST DOCKED DEVICE UNSOLICITED RESULTS Final Result [facility] [address] [place] [id number] * XR Chest 1 View (05/09/2024 9:33 AM EDT) Anatomical Region Laterality Modality Chest Digital Radiogra phy Impressions 05/09/2024 12:54 PM EDT Interval removal of the right IJ sheath. Interval development of a small right apical pneumothorax. CRITICAL RESULT: No. COMMUNICATION: Per this written report. Preliminary report signed by Jaguar Ambrose M.D. on 05/09/2024 11:01 AM By electronically signing this report, I, the attending physician, attest that I have personally reviewed the images/data for the above examination(s) and agree with the final edited report. Drafted by Jaguar Ambrose M.D. on 05/09/2024 10:59 AM Final report signed by Mary Phelps MD on 05/09/2024 12:54 PM Narrative 05/09/2024 12:54 PM EDT CLINICAL INDICATION: post op TECHNIQUE: XR CHEST 1 VIEW COMPARISON: 05/08/2024 FINDINGS: Interval removal of the right IJ sheath. Stable position of bilateral chest tubes and mediastinal drains. Interval development of a small right apical pneumothorax. Persistent bilateral low lung volumes and atelectasis. Stable cardiac and mediastinal contours. No pleural effusion. Procedure Note Mary Phelps MD - 05/09/2024 CLINICAL INDICATION: post op TECHNIQUE: XR CHEST 1 VIEW COMPARISON: 05/08/2024 FINDINGS: Interval removal of the right IJ sheath. Stable position of bilateralchest tubes and mediastinal drains. Interval development of a small rightapical pneumothorax. Persistent bilateral low lung volumes andatelectasis. Stable cardiac and mediastinal contours. No pleuraleffusion. IMPRESSION: Interval removal of the right IJ sheath. Interval development of a small right apical pneumothorax. CRITICAL RESULT: No. COMMUNICATION: Per this written report. Preliminary report signed by Jaguar Ambrose M.D. on 05/09/2024 11:01 AM By electronically signing this report, I, the attending physician, attestthat I have personally reviewed the images/data for the aboveexamination(s) and agree with the final edited report. Drafted by Jaguar Ambrose M.D. on 05/09/2024 10:59 AM Final report signed by Mary Phelps MD on 05/09/2024 12:54 PM Maite Austin MD IMG XR PROCEDURES Final Result * ECG Adult (05/09/2024 9:30 AM EDT) EKG DIAGNOSIS CLASS Abnormal MUSE ECG Ventricular Rate 113 BPM MUSE ECG Atrial Rate 113 BPM MUSE ECG WA Interval 122 ms MUSE ECG QRSD Interval 108 ms MUSE ECG QT Interval 386 ms MUSE ECG QTC Interval 529 ms MUSE ECG P [place] 41 degrees MUSE ECG R [place] 61 degrees MUSE ECG T Wave [place] 27 degrees MUSE ECG Diagnosis Poor data quality, interpretation may be adversely affected MUSE ECG Diagnosis Sinus tachycardia MUSE ECG Diagnosis Low voltage QRS MUSE ECG Diagnosis Incomplete right bundle branch block MUSE ECG Diagnosis Prolonged QT MUSE ECG Diagnosis Abnormal ECG MUSE ECG Diagnosis MUSE ECG Diagnosis Confirmed by Graham Singleton ([id number]) on 05/09/2024 1:36:01 PM MUSE ECG 05/09/2024 9:30 AM EDT 05/09/2024 1:36 PM EDT Maite Austin MD ECG ORDERABLES Final Result MUSE ECG * POCT glucose meter (05/09/2024 9:26 AM EDT) POCT Glucose 77 74 - 99 mg/dL 05/09/2024 9:36 AM EDT [facility] Comment:Accuracy of a glucos e result obtained from a capillary whole blood specimen relies upon adequate, non-compromised capillary blood flow. If the capillary glucose result is not consistent with the patient's clinical signs and symptoms, glucose testing should be repeated with either an arterial or venous sample on the glucometer or sent to the main labortory for testing. Comment 05/09/2024 9:36 AM EDT [facility]ALTH[facility]ARE [facility] Field Hockey Coach ID Luca Em 05/10/19 9:36 AM EDT HEALTH[facility]ARE LAB Device ID [id number] 05/09/2024 9:36 AM EDT [facility] Specimen Type POC Capillary 05/09/2024 9:36 AM EDT [facility] Blood Capillary blood specimen / Unknown 05/09/2024 9:26 AM EDT 05/09/2024 9:36 AM EDT Maite Austin MD LAB POINT OF CARE TE ST DOCKED DEVICE UNSOLICITED RESULTS Final Result Performing Organization Address City/State/[facility] Co de Phone Number [facility]ALTH[facility]ARE LAB [address] [place] [address] * (ABNORMAL) POCT glucose meter (05/09/2024 9:08 AM EDT) [facility] POCT Glucose 64(L) 74 - 99 mg/dL 05/09/2024 9:09 AM EDT [facility] Comment:Accuracy of a glucos e result obtained from a capillary whole blood specimen relies upon adequate, non-compromised capillary blood flow. If the capillary glucose result is not consistent with the patient's clinical signs and symptoms, glucose testing should be repeated with either an arterial or venous sample on the glucometer or sent to the main labortory for testing. Comment 05/09/2024 9:09 AM EDT [facility]ALTH[facility]ARE [facility] Field Hockey Coach ID Luca Em 05/10/19 9:09 AM EDT HEALTH[facility]ARE LAB Device ID [id number] 05/09/2024 9:09 AM EDT [facility] Specimen Type POC Capillary 05/09/2024 9:09 AM EDT [facility] Blood Capillary blood specimen / Unknown 05/09/2024 9:08 AM EDT 05/09/2024 9:09 AM EDT us Maite Austin MD LAB POINT OF CARE TE ST DOCKED DEVICE UNSOLICITED RESULTS Final Result Performing Organization Address City/[facility] Co de Phone Number [facility]ALTH[facility]ARE LAB [address] [place] [address] * (ABNORMAL) POCT glucose meter (05/09/2024 8:42 AM EDT) POCT Glucose 42(LL) 74 - 99 mg/dL 05/09/2024 8:44 AM EDT [facility] Comment:Accuracy of a glucos e result obtained from a capillary whole blood specimen relies upon adequate, non-compromised capillary blood flow. If the capillary glucose result is not consistent with the patient's clinical signs and symptoms, glucose testing should be repeated with either an arterial or venous sample on the glucometer or sent to the main labortory for testing. Comment 05/09/2024 8:44 AM EDT [facility] Field Hockey Coach ID Luca Em 05/10/19 8:44 AM EDT [facility] Device ID [id number] 05/09/2024 8:44 AM EDT [facility] Specimen Type POC Capillary 05/09/2024 8:44 AM EDT [facility] Blood Capillary blood specimen / Unknown 05/09/2024 8:42 AM EDT 05/09/2024 8:44 AM EDT us Maite Austin MD LAB POINT OF CARE TE ST DOCKED DEVICE UNSOLICITED RESULTS Final Result Performing Organization Address City/[facility] Co de Phone Number [facility] [address] [place] [address] * (ABNORMAL) POCT glucose meter (05/09/2024 8:39 AM EDT) POCT Glucose 44(LL) 74 - 99 mg/dL 05/09/2024 8:41 AM EDT [facility] Comment:Accuracy of a glucos e result obtained from a capillary whole blood specimen relies upon adequate, non-compromised capillary blood flow. If the capillary glucose result is not consistent with the patient's clinical signs and symptoms, glucose testing should be repeated with either an arterial or venous sample on the glucometer or sent to the main labortory for testing. Comment 05/09/2024 8:41 AM EDT [facility]ALTHCARE LAB Field Hockey Coach ID Luca Em 05/10/19 8:41 AM EDT [facility] Device ID [id number] 05/09/2024 8:41 AM EDT [facility] Specimen Type POC Capillary 05/09/2024 8:41 AM EDT [facility] Blood Capillary blood specimen / Unknown 05/09/2024 8:39 AM EDT 05/09/2024 8:41 AM EDT us Maite Austin MD LAB POINT OF CARE TE ST DOCKED DEVICE UNSOLICITED RESULTS Final Result Performing Organization Address City/State/[facility] de Phone Number HEALTHCARE LAB [address] [place] [address] * Transfuse RBC (05/09/2024 7:01 AM EDT) Result Anastasiia Austin MD BLOOD TRANSFUSION ORDERABLES Fi nal Result * Transfuse RBC: 1 Units (05/09/2024 7:01 AM EDT) us Maite Austin MD BLOOD TRANSFUSION ORDERABLES Fi nal Result * POCT glucose meter (05/09/2024 3:01 AM EDT) [facility] POCT Glucose 97 74 - 99 mg/dL 05/09/2024 3:03 AM EDT [facility] Comment:Accuracy of a glucos e result obtained from a capillary whole blood specimen relies upon adequate, non-compromised capillary blood flow. If the capillary glucose result is not consistent with the patient's clinical signs and symptoms, glucose testing should be repeated with either an arterial or venous sample on the glucometer or sent to the main labortory for testing. Comment 05/09/2024 3:03 AM EDT [facility]ALTH[facility] LAB Field Hockey Coach ID Betty Young 025 3:03 AM EDT [facility]ALTH[facility]ARE LAB Device ID [id number] 05/09/2024 3:03 AM EDT [facility] Specimen Type POC Venous 05/09/2024 3:03 AM EDT [facility] Blood Venous blood specimen / Unknown 05/09/2024 3:01 AM EDT 05/09/2024 3:03 AM EDT Maite Austin MD LAB POINT OF CARE TE ST DOCKED DEVICE UNSOLICITED RESULTS Final Result Performing Organization Address City/[facility] de Phone Number [facility] [address] [place] [address] * Type and screen (05/09/2024 2:24 AM EDT) ABO/Rh B Positive 05/09/2024 1:51 AM EDT BLOOD BANK Antibody Screen Negative 05/09/2024 1:51 AM EDT BLOOD BANK Specimen Expiration 05/12/2024 23:59 05/09/2024 1:51 AM EDT BLOOD BANK Blood Venous blood specimen / Unknown Venipuncture / Unknown 05/09/2024 2:24 AM EDT 05/09/2024 2:32 AM EDT Maite Austin MD LAB BLOOD BANK TEST ORDERABLES Final Result Performing Organization Address [facility] de Phone Number BLOOD BANK [address] [place] [address] * POCT glucose meter (05/09/2024 2:22 AM EDT) [facility] POCT Glucose 82 74 - 99 mg/dL 05/09/2024 2:23 AM EDT [facility] Comment:Accuracy of a glucos e result obtained from a capillary whole blood specimen relies upon adequate, non-compromised capillary blood flow. If the capillary glucose result is not consistent with the patient's clinical signs and symptoms, glucose testing should be repeated with either an arterial or venous sample on the glucometer or sent to the main labortory for testing. Comment 05/09/2024 2:23 AM EDT [facility] Field Hockey Coach ID Betty Young 025 2:23 AM EDT [facility] Device ID [id number] 05/09/2024 2:23 AM EDT [facility] Specimen Type POC Venous 05/09/2024 2:23 AM EDT [facility] Blood Venous blood specimen / Unknown 05/09/2024 2:22 AM EDT 05/09/2024 2:23 AM EDT Maite Austin MD LAB POINT OF CARE TE ST DOCKED DEVICE UNSOLICITED RESULTS Final Result Performing Organization Address [facility]/ZIP Co de Phone Number [facility] [address] [place] [address] * Prepare Leukocyte Reduced RBC: 1 Units (05/09/2024 1:51 AM EDT) Product Code [id number] CH BLOO D BANK Dispense Status Transfused BLOOD BANK Blood Expiration Date [id number] BLOOD BANK Unit Number [id number] CH B LOOD BANK Product Blood Type 7300 BLOOD BANK Blood Type B+ BLOOD BANK Crossmatch Compatible BLOOD BANK Other Maite Austin MD BLOOD BANK PRODUCT ORDERABLES F inal Result Performing Organization Address [facility] de Phone Number BLOOD BANK [address] [place] [address] * (ABNORMAL) Alanine Aminotransferase, Plasma (05/09/2024 12:52 AM EDT) ALT, Plasma 84(H) 10 - 35 U/L 05/09/2024 1:31 PM EDT [facility] Blood Venous blood specimen / Unknown Venipuncture / Unknown 05/09/2024 12:52 AM EDT 05/09/2024 12:57 AM EDT Maite Austin MD LAB BLOOD ORDERABLES Final Resu lt Performing Organization Address City/[facility]/ZIP Co de Phone Number [facility] [address] [place] [address] * (ABNORMAL) Aspartate Aminotransferase, Plasma (05/09/2024 12:52 AM EDT) AST, Plasma 296(H) 10 - 35 U/L 05/09/2024 1:31 PM EDT [facility] Blood Venous blood specimen / Unknown Venipuncture / Unknown 05/09/2024 12:52 AM EDT 05/09/2024 12:57 AM EDT us Maite Austin MD LAB BLOOD ORDERABLES Final Resu lt [facility] [address] [place] [address] * (ABNORMAL) Basic metabolic panel (05/09/2024 12:52 AM EDT) Glucose, Plasma 78 74 - 99 mg/dL 05/09/2024 1:25 AM EDT [facility] BUN, Plasma 35(H) 7 - 21 mg/dL 05/09/2024 1:25 AM EDT [facility] Creatinine, Plasma 1.72(H) 0.60 - 1.10 mg/dL 05/09/2024 1:25 AM EDT [facility] BUN/Creatinine Ratio 20 05/09/2024 1:25 AM EDT [facility] Sodium, Plasma 143 136 - 145 mmol/L 05/09/2024 1:25 AM EDT [facility] Potassium, Plasma 4.7 3.6 - 4.9 mmol/L 05/09/2024 1:25 AM EDT [facility] Chloride, Plasma 107 97 - 107 mmol/L 05/09/2024 1:25 AM EDT [facility] CO2, Plasma 25 22 - 29 mmol/L 05/09/2024 1:25 AM EDT [facility] Anion Gap 11 6 - 16 mmol/L 05/09/2024 1:25 AM EDT [facility] Total Calcium, Plasma 8.1(L) 8.9 - 10.2 mg/dL 05/09/2024 1:25 AM EDT [facility] eGFRcr 35.0 mL/min/1.7 3m*2 05/09/2024 1:25 AM EDT [facility] Comment:Reported eGFRcr in m L/min/1.73m2 is based the CKD-EPI 2020 equation that does not use a race coefficient. Blood Venous blood specimen / Unknown Venipuncture / Unknown 05/09/2024 12:52 AM EDT 05/09/2024 12:57 AM EDT us Maite Austin MD LAB BLOOD ORDERABLES Final Resu lt [facility] [address] [place] [address] * (ABNORMAL) Hemogram (CBC) (05/09/2024 12:52 AM EDT) WBC Count 16.81(H) 3.70 - 10.30 10*3/uL LAB HEMATOLOGY METHOD 05/09/2024 1:05 AM EDT [facility] RBC Count 2.62(L) 3.90 - 5.20 10*6/uL LAB HEMATOLOGY METHOD 05/09/2024 1:05 AM EDT [facility] HGB 7.6(L) 11.2 - 15.7 g/dL LAB HEMATOLOGY METHOD 05/09/2024 1:05 AM EDT [facility] HCT 22.5(L) 34.0 - 45.0 % LAB HEMATOLOGY METHOD 05/09/2024 1:05 AM EDT [facility] Platelet Count 129(L) 155 - 369 10*3/uL LAB HEMATOLOGY METHOD 05/09/2024 1:05 AM EDT [facility] MCV 86 79 - 98 fL LAB HEMATOLOGY METHOD 05/09/2024 1:05 AM EDT [facility] MCH 29.0 26.0 - 32.0 pg LAB HEMATOLOGY METHOD 05/09/2024 1:05 AM EDT [facility] MCHC 33.8 30.7 - 35.5 g/dL LAB HEMATOLOGY METHOD 05/09/2024 1:05 AM EDT [facility] RDW 16.9(H) 11.5 - 14.5 % LAB HEMATOLOGY METHOD 05/09/2024 1:05 AM EDT [facility] MPV 11.1 8.8 - 12.5 fL LAB HEMATOLOGY METHOD 05/09/2024 1:05 AM EDT [facility] nRBC 0.7(H) <=0.0 per 100 WBCs LAB HEMATOLOGY METHOD 05/09/2024 1:05 AM EDT [facility] Blood Venous blood specimen / Unknown Venipuncture / Unknown 05/09/2024 12:52 AM EDT 05/09/2024 12:57 AM EDT us Maite Austin MD LAB BLOOD ORDERABLES Final Resu lt Performing Organization Address City/[facility]/ZIP Co de Phone Number [facility] [address] [place] [address] * POCT glucose meter (05/08/2024 10:15 PM EDT) POCT Glucose 95 74 - 99 mg/dL 05/08/2024 10:17 PM EDT [facility] Comment:Accuracy of a glucos e result obtained from a capillary whole blood specimen relies upon adequate, non-compromised capillary blood flow. If the capillary glucose result is not consistent with the patient's clinical signs and symptoms, glucose testing should be repeated with either an arterial or venous sample on the glucometer or sent to the main labortory for testing. Comment 05/08/2024 10:17 PM EDT [facility] Field Hockey Coach ID Katya Reyes 05/08/2024 10:17 PM EDT [facility] Device ID [id number] 05/08/2024 10:17 PM EDT [facility] Specimen Type POC Venous 05/08/2024 10:17 PM EDT [facility] Blood Venous blood specimen / Unknown 05/08/2024 10:15 PM EDT 05/08/2024 10:17 PM EDT us Maite Austin MD LAB POINT OF CARE TE ST DOCKED DEVICE UNSOLICITED RESULTS Final Result Performing Organization Address City/[facility]/ZIP Co de Phone Number [facility] [address] [place] [address] * POCT glucose meter (05/08/2024 10:14 PM EDT) POCT Glucose 05/18/2024 9:43 AM EDT [facility] Comment: Accuracy of a glucose result obtained from a capillary whole blood specimen relies upon adequate, non-compromised capillary blood flow. If the capillary glucose result is not consistent with the patient's clinical signs and symptoms, glucose testing should be repeated with either an arterial or venous sample on the glucometer or sent to the main labortory for testing. Corrected result: Previously reported as 34 mg/dL on 05/08/2024 at 2215 EDT. Comment 05/18/2024 9:43 AM EDT [facility] Field Hockey Coach ID Katya Reyes 05/18/2024 9:43 AM EDT [facility] Device ID [id number] 05/18/2024 9:43 AM EDT [facility] Specimen Type POC Capillary 05/18/2024 9:43 AM EDT [facility] Blood Capillary blood specimen / Unknown 05/08/2024 10:14 PM EDT 05/08/2024 10:15 PM EDT Narrative [facility] - 05/18/2024 9:43 AM EDT Testing error per wing bennett csn us Maite Austin MD LAB POINT OF CARE TE ST DOCKED DEVICE UNSOLICITED RESULTS Edited Result - Final [facility] [address] [place] [id number] * (ABNORMAL) CBC W/O Differential (05/08/2024 5:02 PM EDT) WBC Count 16.56(H) 3.70 - 10.30 10*3/uL LAB HEMATOLOGY METHOD 05/08/2024 5:23 PM EDT [facility] RBC Count 2.77(L) 3.90 - 5.20 10*6/uL LAB HEMATOLOGY METHOD 05/08/2024 5:23 PM EDT [facility] HGB 8.2(L) 11.2 - 15.7 g/dL LAB HEMATOLOGY METHOD 05/08/2024 5:23 PM EDT [facility] HCT 24.0(L) 34.0 - 45.0 % LAB HEMATOLOGY METHOD 05/08/2024 5:23 PM EDT [facility] Platelet Count 143(L) 155 - 369 10*3/uL LAB HEMATOLOGY METHOD 05/08/2024 5:23 PM EDT [facility] MCV 87 79 - 98 fL LAB HEMATOLOGY METHOD 05/08/2024 5:23 PM EDT [facility] MCH 29.6 26.0 - 32.0 pg LAB HEMATOLOGY METHOD 05/08/2024 5:23 PM EDT [facility] MCHC 34.2 30.7 - 35.5 g/dL LAB HEMATOLOGY METHOD 05/08/2024 5:23 PM EDT [facility] RDW 17.0(H) 11.5 - 14.5 % LAB HEMATOLOGY METHOD 05/08/2024 5:23 PM EDT [facility] MPV 11.3 8.8 - 12.5 fL LAB HEMATOLOGY METHOD 05/08/2024 5:23 PM EDT [facility] nRBC 0.6(H) <=0.0 per 100 WBCs LAB HEMATOLOGY METHOD 05/08/2024 5:23 PM EDT [facility] Blood Venous blood specimen / Unknown Venipuncture / Unknown 05/08/2024 5:02 PM EDT 05/08/2024 5:14 PM EDT us Maite Austin MD LAB BLOOD ORDERABLES Final Resu lt Performing Organization Address City/[facility]/ZIP Co de Phone Number [facility] [address] [place] [address] * (ABNORMAL) Magnesium (05/08/2024 5:01 PM EDT) Magnesium, Plasma 2.8(H) 1.9 - 2.4 mg/dL 05/08/2024 5:44 PM EDT [facility] Blood Venous blood specimen / Unknown Venipuncture / Unknown 05/08/2024 5:01 PM EDT 05/08/2024 5:15 PM EDT us Maite Austin MD LAB BLOOD ORDERABLES Final Resu lt [facility] [address] [place] [address] * (ABNORMAL) Renal function panel (05/08/2024 5:01 PM EDT) Glucose, Plasma 102(H) 74 - 99 mg/dL 05/08/2024 5:44 PM EDT [facility] BUN, Plasma 34(H) 7 - 21 mg/dL 05/08/2024 5:44 PM EDT [facility] Creatinine, Plasma 1.80(H) 0.60 - 1.10 mg/dL 05/08/2024 5:44 PM EDT [facility] BUN/Creatinine Ratio 19 05/08/2024 5:44 PM EDT [facility] Sodium, Plasma 145 136 - 145 mmol/L 05/08/2024 5:44 PM EDT [facility] Potassium, Plasma 5.1(H) 3.6 - 4.9 mmol/L 05/08/2024 5:44 PM EDT [facility] Chloride, Plasma 108(H) 97 - 107 mmol/L 05/08/2024 5:44 PM EDT [facility] CO2, Plasma 22 22 - 29 mmol/L 05/08/2024 5:44 PM EDT [facility] Anion Gap 15 6 - 16 mmol/L 05/08/2024 5:44 PM EDT [facility] Total Calcium, Plasma 8.2(L) 8.9 - 10.2 mg/dL 05/08/2024 5:44 PM EDT [facility] Phosphorus, Plasma 5.5(H) 2.5 - 4.5 mg/dL 05/08/2024 5:44 PM EDT [facility] Albumin, Plasma 2.8(L) 3.5 - 5.2 g/dL 05/08/2024 5:44 PM EDT [facility] eGFRcr 33.1 mL/min/1.7 3m*2 05/08/2024 5:44 PM EDT [facility] Comment:Reported eGFRcr in m L/min/1.73m2 is based the CKD-EPI 2020 equation that does not use a race coefficient. Blood Venous blood specimen / Unknown Venipuncture / Unknown 05/08/2024 5:01 PM EDT 05/08/2024 5:15 PM EDT us Maite Austin MD LAB BLOOD ORDERABLES Final Resu lt [facility] [address] [place] [address] * [place] [facility], ADDL 30 MIN (05/08/2024 1:26 PM EDT) Narrative Burdick, Gregg D, MD - 05/08/2024 1:26 PM EDT Gregg Burdick MD 05/09/2024 8:48 AM Critical Care Performed by: Gregg Burdick MD Authorized by: Gregg Burdick MD Critical care provider statement: Critical care time (minutes): 40 Critical care time was exclusive of: Separately billable procedures and treating other patients and teaching time Critical care was time spent personally by me on the following activities: Development of treatment plan with patient or surrogate, discussions with primary provider, evaluation of patient's response to treatment, examination of patient, obtaining history from patient or surrogate, ordering and performing treatments and interventions, ordering and review of laboratory studies, ordering and review of radiographic studies and review of old charts I assumed subsequent critical care for this patient from a provider in my division, on the same day: yes Critical care statement: I saw and evaluated the patient with the resident/ fellow. I discussed the case with the resident/ fellow and agree with the findings and plan as documented. us Gregg Burdick MD IN CLINIC/BEDSIDE ORDERABLES Fi nal Result * POCT glucose meter (05/08/2024 12:23 PM EDT) POCT Glucose 93 74 - 99 mg/dL 05/08/2024 12:24 PM EDT [facility] Comment:Accuracy of a glucos e result obtained from a capillary whole blood specimen relies upon adequate, non-compromised capillary blood flow. If the capillary glucose result is not consistent with the patient's clinical signs and symptoms, glucose testing should be repeated with either an arterial or venous sample on the glucometer or sent to the main labortory for testing. Comment 05/08/2024 12:24 PM EDT [facility] Field Hockey Coach ID Hernández, Melisa 05/08/2024 12:24 PM EDT [facility] Device ID [id number] 05/08/2024 12:24 PM EDT [facility] Specimen Type POC Arterial 05/08/2024 12:24 PM EDT [facility] Blood Arterial blood specimen / Unknown 05/08/2024 12:23 PM EDT 05/08/2024 12:24 PM EDT us Maite Austin MD LAB POINT OF CARE TE ST DOCKED DEVICE UNSOLICITED RESULTS Final Result [facility] [address] [place] [address] * (ABNORMAL) POCT glucose meter (05/08/2024 9:29 AM EDT) POCT Glucose 101(H) 74 - 99 mg/dL 05/08/2024 9:36 AM EDT [facility] Comment:Accuracy of a glucos e result obtained from a capillary whole blood specimen relies upon adequate, non-compromised capillary blood flow. If the capillary glucose result is not consistent with the patient's clinical signs and symptoms, glucose testing should be repeated with either an arterial or venous sample on the glucometer or sent to the main labortory for testing. Comment 05/08/2024 9:36 AM EDT [facility] Field Hockey Coach ID Hernández, Melisa 05/08/2024 9:36 AM EDT [facility] Device ID [id number] 05/08/2024 9:36 AM EDT [facility] Specimen Type POC Arterial 05/08/2024 9:36 AM EDT [facility] Blood Arterial blood specimen / Unknown 05/08/2024 9:29 AM EDT 05/08/2024 9:36 AM EDT us Maite Austin MD LAB POINT OF CARE TE ST DOCKED DEVICE UNSOLICITED RESULTS Final Result [facility] [address] [place] [address] * (ABNORMAL) POCT glucose meter (05/08/2024 5:54 AM EDT) POCT Glucose 108(H) 74 - 99 mg/dL 05/08/2024 5:56 AM EDT [facility] Comment:Accuracy of a glucos e result obtained from a capillary whole blood specimen relies upon adequate, non-compromised capillary blood flow. If the capillary glucose result is not consistent with the patient's clinical signs and symptoms, glucose testing should be repeated with either an arterial or venous sample on the glucometer or sent to the main labortory for testing. Comment 05/08/2024 5:56 AM EDT [facility] Field Hockey Coach ID Libby Mckeon 05/08/2024 5:56 AM EDT [facility] Device ID [id number] 05/08/2024 5:56 AM EDT [facility] Specimen Type POC Arterial 05/08/2024 5:56 AM EDT [facility] Blood Arterial blood specimen / Unknown 05/08/2024 5:54 AM EDT 05/08/2024 5:56 AM EDT us Maite Austin MD LAB POINT OF CARE TE ST DOCKED DEVICE UNSOLICITED RESULTS Final Result [facility] [address] [place] [address] * XR Chest 1 View (05/08/2024 2:42 AM EDT) Anatomical Region Laterality Modality Chest Digital Radiogra phy Impressions 05/08/2024 7:36 AM EDT Interval development of hazy left lung opacities, possibly reflective of atelectasis. Lines and tubes as above. CRITICAL RESULT: No. COMMUNICATION: Per this written report. ATTESTATION: Not applicable. Drafted by Svetlana Scott MD on 05/08/2024 7:34 AM Final report signed by Svetlana Scott MD on 05/08/2024 7:36 AM Narrative 05/08/2024 7:36 AM EDT CLINICAL INDICATION: Post op TECHNIQUE: XR CHEST 1 VIEW COMPARISON: 05/07/2024 FINDINGS: Interval extubation. [place] catheter has been removed. Right IJ introducer sheath remains in place. Unchanged position of bilateral chest tubes and mediastinal drains. Stable cardiomediastinal silhouette. Interval development of hazy left lung opacities. No large pleural effusion or discrete pneumothorax. Procedure Note Svetlana Scott MD - 05/08/2024 CLINICAL INDICATION: Post op TECHNIQUE: XR CHEST 1 VIEW COMPARISON: 05/07/2024 FINDINGS: Interval extubation. [place]-Ellis catheter has been removed. Right IJintroducer sheath remains in place. Unchanged position of bilateral chesttubes and mediastinal drains. Stable cardiomediastinal silhouette.Interval development of hazy left lung opacities. No large pleuraleffusion or discrete pneumothorax. IMPRESSION: Interval development of hazy left lung opacities, possibly reflective ofatelectasis. Lines and tubes as above. CRITICAL RESULT: No. COMMUNICATION: Per this written report. ATTESTATION: Not applicable. Drafted by Svetlana Scott MD on 05/08/2024 7:34 AM Final report signed by Svetlana Scott MD on 05/08/2024 7:36 AM Maite Austin MD IMG XR PROCEDURES Final Result * (ABNORMAL) Basic metabolic panel (05/08/2024 12:46 AM EDT) Glucose, Plasma 119(H) 74 - 99 mg/dL 05/08/2024 1:28 AM EDT [facility] BUN, Plasma 28(H) 7 - 21 mg/dL 05/08/2024 1:28 AM EDT [facility] Creatinine, Plasma 1.84(H) 0.60 - 1.10 mg/dL 05/08/2024 1:28 AM EDT [facility] BUN/Creatinine Ratio 15 05/08/2024 1:28 AM EDT [facility] Sodium, Plasma 148(H) 136 - 145 mmol/L 05/08/2024 1:28 AM EDT [facility] Potassium, Plasma 4.6 3.6 - 4.9 mmol/L 05/08/2024 1:28 AM EDT [facility] Chloride, Plasma 115(H) 97 - 107 mmol/L 05/08/2024 1:28 AM EDT [facility] CO2, Plasma 20(L) 22 - 29 mmol/L 05/08/2024 1:28 AM EDT [facility] Anion Gap 13 6 - 16 mmol/L 05/08/2024 1:28 AM EDT [facility] Total Calcium, Plasma 8.2(L) 8.9 - 10.2 mg/dL 05/08/2024 1:28 AM EDT [facility] eGFRcr 32.3 mL/min/1.7 3m*2 05/08/2024 1:28 AM EDT [facility] Comment:Reported eGFRcr in m L/min/1.73m2 is based the CKD-EPI 2020 equation that does not use a race coefficient. Blood Venous blood specimen / Unknown Venipuncture / Unknown 05/08/2024 12:46 AM EDT 05/08/2024 12:57 AM EDT us Maite Austin MD LAB BLOOD ORDERABLES Final Resu lt [facility] [address] [place] [address] * (ABNORMAL) Blood gas, arterial (05/08/2024 12:23 AM EDT) pH, Arterial 7.30(L) 7.35 - 7.45 LAB HEMATOLOGY METHOD 05/08/2024 12:32 AM EDT [facility] pCO2, Arterial 47 35 - 48 mmHg LAB HEMATOLOGY METHOD 05/08/2024 12:32 AM EDT [facility] pO2, Arterial 90 83 - 108 mmHg LAB HEMATOLOGY METHOD 05/08/2024 12:32 AM EDT [facility] SO2, Measured, Arterial 98 94 - 98 % LAB HEMATOLOGY METHOD 05/08/2024 12:32 AM EDT [facility] Base Excess, Arterial -3.4(L) -2.0 - 3.0 mmol/L LAB HEMATOLOGY METHOD 05/08/2024 12:32 AM EDT [facility] Bicarbonate, Calculated, Arterial 23 22 - 26 mmol/L LAB HEMATOLOGY METHOD 05/08/2024 12:32 AM EDT [facility] Hematocrit, Whole Blood 27.3(L) 34.0 - 45.0 % LAB HEMATOLOGY METHOD 05/08/2024 12:32 AM EDT [facility] Sodium, Whole Blood 146(H) 136 - 145 mmol/L LAB HEMATOLOGY METHOD 05/08/2024 12:32 AM EDT [facility] Potassium, Whole Blood 4.2 3.6 - 4.9 mmol/L LAB HEMATOLOGY METHOD 05/08/2024 12:32 AM EDT [facility] Chloride, Whole Blood 115(H) 97 - 107 mmol/L LAB HEMATOLOGY METHOD 05/08/2024 12:32 AM EDT [facility] Glucose, Whole Blood 119(H) 74 - 99 mg/dL LAB HEMATOLOGY METHOD 05/08/2024 12:32 AM EDT [facility] Ionized Calcium, Whole Blood 4.7 4.6 - 5.1 mg/dL LAB HEMATOLOGY METHOD 05/08/2024 12:32 AM EDT [facility] Lactate, Arterial, Whole Blood 3.2(H) 0.5 - 1.6 mmol/L LAB HEMATOLOGY METHOD 05/08/2024 12:32 AM EDT [facility] Blood Arterial blood specimen / Unknown Arterial Puncture / Unknown 05/08/2024 12:23 AM EDT 05/08/2024 12:29 AM EDT us Maite Austin MD LAB BLOOD ORDERABLES Final Resu lt [facility] [address] [place] [address] * (ABNORMAL) POCT glucose meter (05/08/2024 12:21 AM EDT) [facility] Signature POCT Glucose 131(H) 74 - 99 mg/dL 05/08/2024 12:23 AM EDT [facility] Comment:Accuracy of a glucos e result obtained from a capillary whole blood specimen relies upon adequate, non-compromised capillary blood flow. If the capillary glucose result is not consistent with the patient's clinical signs and symptoms, glucose testing should be repeated with either an arterial or venous sample on the glucometer or sent to the main labortory for testing. Comment 05/08/2024 12:23 AM EDT [facility] Field Hockey Coach ID Libby Mckeon 05/08/2024 12:23 AM EDT [facility] Device ID [id number] 05/08/2024 12:23 AM EDT [facility] Specimen Type POC Arterial 05/08/2024 12:23 AM EDT [facility] Blood Arterial blood specimen / Unknown 05/08/2024 12:21 AM EDT 05/08/2024 12:23 AM EDT us Maite Austin MD LAB POINT OF CARE TE ST DOCKED DEVICE UNSOLICITED RESULTS Final Result [facility] [address] [place] [address] * (ABNORMAL) CBC (05/08/2024 12:21 AM EDT) WBC Count 16.25(H) 3.70 - 10.30 10*3/uL LAB HEMATOLOGY METHOD 05/08/2024 1:04 AM EDT [facility] RBC Count 3.09(L) 3.90 - 5.20 10*6/uL LAB HEMATOLOGY METHOD 05/08/2024 1:04 AM EDT [facility] HGB 9.2(L) 11.2 - 15.7 g/dL LAB HEMATOLOGY METHOD 05/08/2024 1:04 AM EDT [facility] HCT 26.6(L) 34.0 - 45.0 % LAB HEMATOLOGY METHOD 05/08/2024 1:04 AM EDT [facility] Platelet Count 159 155 - 369 10*3/uL LAB HEMATOLOGY METHOD 05/08/2024 1:04 AM EDT [facility] MCV 86 79 - 98 fL LAB HEMATOLOGY METHOD 05/08/2024 1:04 AM EDT [facility] MCH 29.8 26.0 - 32.0 pg LAB HEMATOLOGY METHOD 05/08/2024 1:04 AM EDT [facility] MCHC 34.6 30.7 - 35.5 g/dL LAB HEMATOLOGY METHOD 05/08/2024 1:04 AM EDT [facility] RDW 17.0(H) 11.5 - 14.5 % LAB HEMATOLOGY METHOD 05/08/2024 1:04 AM EDT [facility] MPV 11.2 8.8 - 12.5 fL LAB HEMATOLOGY METHOD 05/08/2024 1:04 AM EDT [facility] nRBC 0.0 <=0.0 per 100 WBCs LAB HEMATOLOGY METHOD 05/08/2024 1:04 AM EDT [facility] Blood Venous blood specimen / Unknown Venipuncture / Unknown 05/08/2024 12:21 AM EDT 05/08/2024 12:40 AM EDT us Maite Austin MD LAB BLOOD ORDERABLES Final Resu lt Performing Organization Address City/[facility]/ZIP Co de Phone Number [facility] [address] [place] [address] * ECG Adult (05/07/2024 11:23 PM EDT) [facility] EKG DIAGNOSIS CLASS Abnormal MUSE ECG Ventricular Rate 106 BPM MUSE ECG Atrial Rate 106 BPM MUSE ECG WA Interval 136 ms MUSE ECG QRSD Interval 104 ms MUSE ECG QT Interval 406 ms MUSE ECG QTC Interval 539 ms MUSE ECG P [place] 42 degrees MUSE ECG R [place] 62 degrees MUSE ECG T Wave [place] 36 degrees MUSE ECG Diagnosis Sinus tachycardia MUSE ECG Diagnosis Low voltage QRS MUSE ECG Diagnosis Incomplete right bundle branch block MUSE ECG Diagnosis Nonspecific T wave abnormality MUSE ECG Diagnosis Prolonged QT MUSE ECG Diagnosis Abnormal ECG MUSE ECG Diagnosis MUSE ECG Diagnosis Confirmed by Marlena Zhou ([id number]) on 05/08/2024 11:25:10 AM MUSE ECG 05/07/2024 11:2 3 PM EDT 05/08/2024 11:25 AM EDT Maite Austin MD ECG ORDERABLES Final Result Performing Organization Address [facility] Co de Phone Number MUSE ECG * Potassium (05/07/2024 11:15 PM EDT) [facility] Potassium, Plasma 4.3 3.6 - 4.9 mmol/L 05/07/2024 11:41 PM EDT [facility] Blood Venous blood specimen / Unknown Venipuncture / Unknown 05/07/2024 11:15 PM EDT 05/07/2024 11:21 PM EDT Maite Austin MD LAB BLOOD ORDERABLES Final Resu lt Performing Organization Address [facility]/ZIP Co de Phone Number [facility] [address] [place] [address] * (ABNORMAL) POCT glucose meter (05/07/2024 11:04 PM EDT) [facility] POCT Glucose 247(H) 74 - 99 mg/dL 05/07/2024 11:06 PM EDT [facility] Comment:Accuracy of a glucos e result obtained from a capillary whole blood specimen relies upon adequate, non-compromised capillary blood flow. If the capillary glucose result is not consistent with the patient's clinical signs and symptoms, glucose testing should be repeated with either an arterial or venous sample on the glucometer or sent to the main labortory for testing. Comment 05/07/2024 11:06 PM EDT [facility] Field Hockey Coach ID Libby Mckeon 05/07/2024 11:06 PM EDT [facility] Device ID [id number] 05/07/2024 11:06 PM EDT [facility] Specimen Type POC Arterial 05/07/2024 11:06 PM EDT [facility] Blood Arterial blood specimen / Unknown 05/07/2024 11:04 PM EDT 05/07/2024 11:06 PM EDT us Maite Austin MD LAB POINT OF CARE TE ST DOCKED DEVICE UNSOLICITED RESULTS Final Result Performing Organization Address City/State/[facility] Co de Phone Number [facility] [address] [place] [address] * (ABNORMAL) POCT glucose meter (05/07/2024 10:38 PM EDT) [facility] POCT Glucose 121(H) 74 - 99 mg/dL 05/07/2024 11:04 PM EDT [facility] Comment:Accuracy of a glucos e result obtained from a capillary whole blood specimen relies upon adequate, non-compromised capillary blood flow. If the capillary glucose result is not consistent with the patient's clinical signs and symptoms, glucose testing should be repeated with either an arterial or venous sample on the glucometer or sent to the main labortory for testing. Comment 05/07/2024 11:04 PM EDT [facility] Field Hockey Coach ID Libby Mckeon 05/07/2024 11:04 PM EDT [facility] Device ID [id number] 05/07/2024 11:04 PM EDT [facility] Specimen Type POC Arterial 05/07/2024 11:04 PM EDT [facility] Blood Arterial blood specimen / Unknown 05/07/2024 10:38 PM EDT 05/07/2024 11:04 PM EDT us Maite Austin MD LAB POINT OF CARE TE ST DOCKED DEVICE UNSOLICITED RESULTS Final Result Performing Organization Address City/[facility] Co de Phone Number [facility] [address] [place] [address] * (ABNORMAL) POCT glucose meter (05/07/2024 10:22 PM EDT) POCT Glucose 124(H) 74 - 99 mg/dL 05/07/2024 10:23 PM EDT [facility] Comment:Accuracy of a glucos e result obtained from a capillary whole blood specimen relies upon adequate, non-compromised capillary blood flow. If the capillary glucose result is not consistent with the patient's clinical signs and symptoms, glucose testing should be repeated with either an arterial or venous sample on the glucometer or sent to the main labortory for testing. Comment 05/07/2024 10:23 PM EDT [facility] Field Hockey Coach ID Libby Mckeon 05/07/2024 10:23 PM EDT [facility] LAB Device ID [id number] 05/07/2024 10:23 PM EDT [facility] Specimen Type POC Arterial 05/07/2024 10:23 PM EDT [facility] Blood Arterial blood specimen / Unknown 05/07/2024 10:22 PM EDT 05/07/2024 10:23 PM EDT us Maite Austin MD LAB POINT OF CARE TE ST DOCKED DEVICE UNSOLICITED RESULTS Final Result Performing Organization Address City/[facility] Co de Phone Number HEALTHCARE LAB [address] [place] [address] * (ABNORMAL) POCT glucose meter (05/07/2024 9:20 PM EDT) POCT Glucose 135(H) 74 - 99 mg/dL 05/07/2024 9:21 PM EDT [facility] Comment:Accuracy of a glucos e result obtained from a capillary whole blood specimen relies upon adequate, non-compromised capillary blood flow. If the capillary glucose result is not consistent with the patient's clinical signs and symptoms, glucose testing should be repeated with either an arterial or venous sample on the glucometer or sent to the main labortory for testing. Comment 05/07/2024 9:21 PM EDT [facility] LAB Field Hockey Coach ID Libby Mckeon 05/07/2024 9:21 PM EDT [facility]ALTH[facility]ARE LAB Device ID [id number] 05/07/2024 9:21 PM EDT [facility] LAB Specimen Type POC Arterial 05/07/2024 9:21 PM EDT [facility] Blood Arterial blood specimen / Unknown 05/07/2024 9:20 PM EDT 05/07/2024 9:21 PM EDT Maite Austin MD LAB POINT OF CARE TE ST DOCKED DEVICE UNSOLICITED RESULTS Final Result Performing Organization Address City/[facility]/ZIP Co de Phone Number HEALTHCARE LAB [address] [place] [address] * (ABNORMAL) Magnesium (05/07/2024 7:58 PM EDT) Magnesium, Plasma 3.1(H) 1.9 - 2.4 mg/dL 05/07/2024 8:58 PM EDT [facility] Blood Venous blood specimen / Unknown Venipuncture / Unknown 05/07/2024 7:58 PM EDT 05/07/2024 8:24 PM EDT us Maite Austin MD LAB BLOOD ORDERABLES Final Resu lt Performing Organization Address City/[facility]/ZIP Co de Phone Number [facility] [address] [place] [address] * (ABNORMAL) Renal function panel (05/07/2024 7:58 PM EDT) Glucose, Plasma 135(H) 74 - 99 mg/dL 05/07/2024 8:58 PM EDT [facility] BUN, Plasma 28(H) 7 - 21 mg/dL 05/07/2024 8:58 PM EDT [facility] Creatinine, Plasma 1.92(H) 0.60 - 1.10 mg/dL 05/07/2024 8:58 PM EDT [facility] BUN/Creatinine Ratio 15 05/07/2024 8:58 PM EDT [facility] Sodium, Plasma 148(H) 136 - 145 mmol/L 05/07/2024 8:58 PM EDT [facility] Potassium, Plasma 5.5(H) 3.6 - 4.9 mmol/L 05/07/2024 8:58 PM EDT [facility] Chloride, Plasma 114(H) 97 - 107 mmol/L 05/07/2024 8:58 PM EDT [facility] CO2, Plasma 20(L) 22 - 29 mmol/L 05/07/2024 8:58 PM EDT [facility] Anion Gap 14 6 - 16 mmol/L 05/07/2024 8:58 PM EDT [facility] Total Calcium, Plasma 8.4(L) 8.9 - 10.2 mg/dL 05/07/2024 8:58 PM EDT [facility] Phosphorus, Plasma 6.6(H) 2.5 - 4.5 mg/dL 05/07/2024 8:58 PM EDT [facility] Albumin, Plasma 3.0(L) 3.5 - 5.2 g/dL 05/07/2024 8:58 PM EDT [facility] eGFRcr 30.7 mL/min/1.7 3m*2 05/07/2024 8:58 PM EDT [facility] Comment:Reported eGFRcr in m L/min/1.73m2 is based the CKD-EPI 2020 equation that does not use a race coefficient. Blood Venous blood specimen / Unknown Venipuncture / Unknown 05/07/2024 7:58 PM EDT 05/07/2024 8:24 PM EDT us Maite Austin MD LAB BLOOD ORDERABLES Final Resu lt [facility] [address] [place] [address] * (ABNORMAL) POCT glucose meter (05/07/2024 5:58 PM EDT) [facility] POCT Glucose 125(H) 74 - 99 mg/dL 05/07/2024 6:00 PM EDT [facility] Comment:Accuracy of a glucos e result obtained from a capillary whole blood specimen relies upon adequate, non-compromised capillary blood flow. If the capillary glucose result is not consistent with the patient's clinical signs and symptoms, glucose testing should be repeated with either an arterial or venous sample on the glucometer or sent to the main labortory for testing. Comment 05/07/2024 6:00 PM EDT [facility] Field Hockey Coach ID Melisa Hernández 05/07/2024 6:00 PM EDT [facility] Device ID [id number] 05/07/2024 6:00 PM EDT [facility] Specimen Type POC Arterial 05/07/2024 6:00 PM EDT [facility] Blood Arterial blood specimen / Unknown 05/07/2024 5:58 PM EDT 05/07/2024 6:00 PM EDT us Maite Austin MD LAB POINT OF CARE TE ST DOCKED DEVICE UNSOLICITED RESULTS Final Result Performing Organization Address City/State/[facility] Co de Phone Number [facility] [address] [place] [address] * (ABNORMAL) POCT glucose meter (05/07/2024 1:50 PM EDT) POCT Glucose 122(H) 74 - 99 mg/dL 05/07/2024 1:52 PM EDT [facility] Comment:Accuracy of a glucos e result obtained from a capillary whole blood specimen relies upon adequate, non-compromised capillary blood flow. If the capillary glucose result is not consistent with the patient's clinical signs and symptoms, glucose testing should be repeated with either an arterial or venous sample on the glucometer or sent to the main labortory for testing. Comment 05/07/2024 1:52 PM EDT [facility] Field Hockey Coach ID Edgar Melisa 05/07/2024 1:52 PM EDT [facility] Device ID [id number] 05/07/2024 1:52 PM EDT [facility] Specimen Type POC Arterial 05/07/2024 1:52 PM EDT [facility] Blood Arterial blood specimen / Unknown 05/07/2024 1:50 PM EDT 05/07/2024 1:52 PM EDT us Maite Austin MD LAB POINT OF CARE TE ST DOCKED DEVICE UNSOLICITED RESULTS Final Result [facility] [address] [place] [address] * [place] [facility], ADDL 30 MIN (05/07/2024 10:11 AM EDT) Narrative Amaury Byrd MD - 05/07/2024 10:11 AM EDT Amaury Byrd MD 05/07/2024 3:38 PM Critical Care Performed by: Amaury Byrd MD Authorized by: Amaury Byrd MD Critical care provider statement: Critical care time (minutes): 38 Critical care time was exclusive of: Separately billable procedures and treating other patients and teaching time Critical care was time spent personally by me on the following activities: Development of treatment plan with patient or surrogate, ordering and performing treatments and interventions, discussions with consultants, ordering and review of laboratory studies, discussions with primary provider, ordering and review of radiographic studies, evaluation of patient's response to treatment and examination of patient I assumed subsequent critical care for this patient from a provider in my division, on the same day: yes Critical care statement: I saw and evaluated the patient with the resident/ fellow. I discussed the case with the resident/ fellow and agree with the findings and plan as documented. us Amaury Byrd MD IN CLINIC/BEDSIDE ORDERABLES Fi nal Result * (ABNORMAL) Blood gas panel with oximetry, mixed venous (05/07/2024 8:08 AM EDT) pH, Mixed Venous 7.27(L) 7.32 - 7.43 LAB HEMATOLOGY METHOD 05/07/2024 8:27 AM EDT [facility] pCO2, Mixed Venous 50 37 - 52 mmHg LAB HEMATOLOGY METHOD 05/07/2024 8:27 AM EDT [facility] pO2, Mixed Venous 52(H) 25 - 40 mmHg LAB HEMATOLOGY METHOD 05/07/2024 8:27 AM EDT [facility] SO2, Measured, Mixed Venous 86(H) 65 - 80 % LAB HEMATOLOGY METHOD 05/07/2024 8:27 AM EDT [facility] Bicarbonate, Calculated, Mixed Venous 23 22 - 26 mmol/L LAB HEMATOLOGY METHOD 05/07/2024 8:27 AM EDT [facility] Base Excess, Mixed Venous -3.8(L) -2.0 - 3.0 mmol/L LAB HEMATOLOGY METHOD 05/07/2024 8:27 AM EDT [facility] Hematocrit, Whole Blood 29.8(L) 34.0 - 45.0 % LAB HEMATOLOGY METHOD 05/07/2024 8:27 AM EDT [facility] Sodium, Whole Blood 151(H) 136 - 145 mmol/L LAB HEMATOLOGY METHOD 05/07/2024 8:27 AM EDT [facility] Potassium, Whole Blood 4.5 3.6 - 4.9 mmol/L LAB HEMATOLOGY METHOD 05/07/2024 8:27 AM EDT [facility] Chloride, Whole Blood 119(H) 97 - 107 mmol/L LAB HEMATOLOGY METHOD 05/07/2024 8:27 AM EDT [facility] Ionized Calcium, Whole Blood 4.9 4.6 - 5.1 mg/dL LAB HEMATOLOGY METHOD 05/07/2024 8:27 AM EDT [facility] Glucose, Whole Blood 112(H) 74 - 99 mg/dL LAB HEMATOLOGY METHOD 05/07/2024 8:27 AM EDT [facility] Oxyhemoglobin, Mixed Venous, Whole Blood 83.4(H) 40.0 - 70.0 % LAB HEMATOLOGY METHOD 05/07/2024 8:27 AM EDT [facility] Hemoglobin Reduced, Mixed Venous, Whole Blood 14.2 % LAB HEMATOLOGY METHOD 05/07/2024 8:27 AM EDT [facility] Total Hemoglobin, Mixed Venous, Whole Blood 9.7(L) 11.2 - 15.7 g/dL LAB HEMATOLOGY METHOD 05/07/2024 8:27 AM EDT [facility] Blood Mixed venous blood specimen / Unknown Venipuncture / Unknown 05/07/2024 8:08 AM EDT 05/07/2024 8:23 AM EDT us Maite Austin MD LAB BLOOD ORDERABLES Final Resu lt [facility] [address] [place] [address] * (ABNORMAL) Blood gas, arterial (05/07/2024 8:08 AM EDT) pH, Arterial 7.29(L) 7.35 - 7.45 LAB HEMATOLOGY METHOD 05/07/2024 8:26 AM EDT [facility] pCO2, Arterial 48 35 - 48 mmHg LAB HEMATOLOGY METHOD 05/07/2024 8:26 AM EDT [facility] pO2, Arterial 148(H) 83 - 108 mmHg LAB HEMATOLOGY METHOD 05/07/2024 8:26 AM EDT [facility] SO2, Measured, Arterial 99(H) 94 - 98 % LAB HEMATOLOGY METHOD 05/07/2024 8:26 AM EDT [facility] Base Excess, Arterial -3.5(L) -2.0 - 3.0 mmol/L LAB HEMATOLOGY METHOD 05/07/2024 8:26 AM EDT [facility] Bicarbonate, Calculated, Arterial 23 22 - 26 mmol/L LAB HEMATOLOGY METHOD 05/07/2024 8:26 AM EDT [facility] Hematocrit, Whole Blood 30.5(L) 34.0 - 45.0 % LAB HEMATOLOGY METHOD 05/07/2024 8:26 AM EDT [facility] Sodium, Whole Blood 151(H) 136 - 145 mmol/L LAB HEMATOLOGY METHOD 05/07/2024 8:26 AM EDT [facility] Potassium, Whole Blood 4.6 3.6 - 4.9 mmol/L LAB HEMATOLOGY METHOD 05/07/2024 8:26 AM EDT [facility] Chloride, Whole Blood 119(H) 97 - 107 mmol/L LAB HEMATOLOGY METHOD 05/07/2024 8:26 AM EDT [facility] Glucose, Whole Blood 118(H) 74 - 99 mg/dL LAB HEMATOLOGY METHOD 05/07/2024 8:26 AM EDT [facility] Ionized Calcium, Whole Blood 5.0 4.6 - 5.1 mg/dL LAB HEMATOLOGY METHOD 05/07/2024 8:26 AM EDT [facility] Lactate, Arterial, Whole Blood 3.5(H) 0.5 - 1.6 mmol/L LAB HEMATOLOGY METHOD 05/07/2024 8:26 AM EDT [facility] Blood Arterial blood specimen / Unknown Arterial Puncture / Unknown 05/07/2024 8:08 AM EDT 05/07/2024 8:23 AM EDT us Maite Austin MD LAB BLOOD ORDERABLES Final Resu lt Performing Organization Address City/[facility]/ZIP Co de Phone Number [facility] [address] [place] [address] * (ABNORMAL) Potassium, Plasma (05/07/2024 8:08 AM EDT) Potassium, Plasma 5.0(H) 3.6 - 4.9 mmol/L 05/07/2024 8:55 AM EDT [facility] Blood Venous blood specimen / Unknown Venipuncture / Unknown 05/07/2024 8:08 AM EDT 05/07/2024 8:33 AM EDT us Maite Austin MD LAB BLOOD ORDERABLES Final Resu lt Performing Organization Address [facility]/ZIP Co de Phone Number [facility] [address] [place] [address] * (ABNORMAL) Hematocrit (05/07/2024 8:08 AM EDT) HCT 29.0(L) 34.0 - 45.0 % LAB HEMATOLOGY METHOD 05/07/2024 8:46 AM EDT [facility] Blood Venous blood specimen / Unknown Venipuncture / Unknown 05/07/2024 8:08 AM EDT 05/07/2024 8:36 AM EDT us Maite Austin MD LAB BLOOD ORDERABLES Final Resu lt Performing Organization Address City/[facility]/ZIP Co de Phone Number [facility] [address] [place] [address] * (ABNORMAL) Hemoglobin (05/07/2024 8:08 AM EDT) HGB 9.9(L) 11.2 - 15.7 g/dL LAB HEMATOLOGY METHOD 05/07/2024 8:46 AM EDT [facility] Blood Venous blood specimen / Unknown Venipuncture / Unknown 05/07/2024 8:08 AM EDT 05/07/2024 8:36 AM EDT us Maite Austin MD LAB BLOOD ORDERABLES Final Resu lt [facility] [address] [place] [address] * (ABNORMAL) POCT arterial blood gas gem (05/07/2024 6:35 AM EDT) pH, Arterial 7.32(L) 7.35 - 7.45 05/07/2024 6:36 AM EDT [facility] pCO2, Arterial 44 35 - 48 mm Hg 05/07/2024 6:36 AM EDT [facility] pO2, Arterial 80(L) 83 - 108 mm Hg 05/07/2024 6:36 AM EDT [facility] SO2, Arterial 98 94 - 98 % 05/07/2024 6:36 AM EDT [facility] FIO2 40.0 % 05/07/2024 6:36 AM EDT [facility] Base Excess, Arterial -3.3(L) -2 - 3 mmol/L 05/07/2024 6:36 AM EDT [facility] HCO3, Arterial 22.7 22 - 26 mmol/L 05/07/2024 6:36 AM EDT [facility] Total Hemoglobin, Arterial, Whole Blood 9.7(L) 11.2 - 15.7 g/dL 05/07/2024 6:36 AM EDT [facility] Hematocrit, Arterial 29.0(L) 34.0 - 45.0 % 05/07/2024 6:36 AM EDT [facility] Sodium, Arterial 151(H) 136 - 145 mmol/L 05/07/2024 6:36 AM EDT [facility] Potassium, Arterial 4.9 3.6 - 4.9 mmol/L 05/07/2024 6:36 AM EDT [facility] Chloride, Whole Blood 118(H) 97 - 107 mmol/L 05/07/2024 6:36 AM EDT [facility] Glucose, Arterial 114(H) 74 - 99 mg/dL 05/07/2024 6:36 AM EDT [facility] Ionized Calcium, Arterial 5.5(H) 4.6 - 5.1 mg/dL 05/07/2024 6:36 AM EDT [facility]ALTH[facility] LAB Lactate, Arterial 3.9(H) 0.5 - 1.6 mmol/L 05/07/2024 6:36 AM EDT [facility] Body Temperature 38.0 Celsius 05/07/2024 6:36 AM EDT [facility]ALTHCARE LAB pH, Temp Corrected, Arterial 7.31(L) 7.35 - 7.45 05/07/2024 6:36 AM EDT [facility] pCO2, Temp Corrected, Arterial 46 35 - 48 mm Hg 05/07/2024 6:36 AM EDT [facility] pO2, Temp Corrected, Arterial 85 83 - 108 mm Hg 05/07/2024 6:36 AM EDT [facility] Field Hockey Coach ID Light, Vicky 05/07/2024 6:36 AM EDT [facility] Blood, Arterial Whole blood specimen / Unknown 05/07/2024 6:35 AM EDT 05/07/2024 6:36 AM EDT us Maite Austin MD LAB POINT OF CARE TE ST DOCKED DEVICE UNSOLICITED RESULTS Final Result Performing Organization Address City/State/[facility] Co de Phone Number [facility] [address] [place] [id number] * XR Chest 1 View (05/07/2024 5:42 AM EDT) Anatomical Region Laterality Modality Chest Digital Radiogra phy Impressions 05/07/2024 9:59 AM EDT Trace of interstitial edema CRITICAL RESULT: No. COMMUNICATION: Per this written report. By electronically signing this report, I, the attending physician, attest that I have personally reviewed the images/data for the above examination(s) and agree with the final edited report. Drafted by GER Mckee on 05/07/2024 9:34 AM Final report signed by Mary Phelps MD on 05/07/2024 9:59 AM Narrative 05/07/2024 9:59 AM EDT CLINICAL INDICATION: Post-Op Cardiac Surgery TECHNIQUE: XR CHEST 1 VIEW COMPARISON: May 06, 2024 . FINDINGS: Stable support hardware. Cardiac silhouette and mediastinal contours are stable. Trace of interstitial edema. No pneumothorax. Procedure Note Mary Phelps MD - 05/07/2024 CLINICAL INDICATION: Post-Op Cardiac Surgery TECHNIQUE: XR CHEST 1 VIEW COMPARISON: May 06, 2024 . FINDINGS: Stable support hardware. Cardiac silhouette and mediastinal contours arestable. Trace of interstitial edema. No pneumothorax. IMPRESSION: Trace of interstitial edema CRITICAL RESULT: No. COMMUNICATION: Per this written report. By electronically signing this report, I, the attending physician, attcarolthat I have personally reviewed the images/data for the aboveexamination(s) and agree with the final edited report. Drafted by GER Mckee on 05/07/2024 9:34 AM Final report signed by Mary Phelps MD on 05/07/2024 9:59 AM Maite Austin MD IMG XR PROCEDURES Final Result * ECG Adult - POD 1 (05/07/2024 4:16 AM EDT) EKG DIAGNOSIS CLASS Abnormal MUSE ECG Ventricular Rate 79 BPM MUSE ECG Atrial Rate 79 BPM MUSE ECG WA Interval 126 ms MUSE ECG QRSD Interval 96 ms MUSE ECG QT Interval 430 ms MUSE ECG QTC Interval 493 ms MUSE ECG P [place] 70 degrees MUSE ECG R [place] 78 degrees MUSE ECG T Wave [place] 22 degrees MUSE ECG Diagnosis Normal sinus rhythm MUSE ECG Diagnosis Low voltage QRS MUSE ECG Diagnosis Possible Anterolateral infarct , age undetermined MUSE ECG Diagnosis QTcB >= 480 msec MUSE ECG Diagnosis Abnormal ECG MUSE ECG Diagnosis MUSE ECG Diagnosis Confirmed by Pratik Aiken ([id number]) on 05/07/2024 1:28:04 PM MUSE ECG 05/07/2024 4:16 AM EDT 05/07/2024 1:28 PM EDT Maite Austin MD ECG ORDERABLES Final Result MUSE ECG * (ABNORMAL) Blood gas, arterial (05/07/2024 3:52 AM EDT) pH, Arterial 7.35 7.35 - 7.45 LAB HEMATOLOGY METHOD 05/07/2024 4:09 AM EDT [facility] pCO2, Arterial 40 35 - 48 mmHg LAB HEMATOLOGY METHOD 05/07/2024 4:09 AM EDT [facility] pO2, Arterial 172(H) 83 - 108 mmHg LAB HEMATOLOGY METHOD 05/07/2024 4:09 AM EDT [facility] SO2, Measured, Arterial 100(H) 94 - 98 % LAB HEMATOLOGY METHOD 05/07/2024 4:09 AM EDT [facility] Base Excess, Arterial -3.1(L) -2.0 - 3.0 mmol/L LAB HEMATOLOGY METHOD 05/07/2024 4:09 AM EDT [facility] Bicarbonate, Calculated, Arterial 22 22 - 26 mmol/L LAB HEMATOLOGY METHOD 05/07/2024 4:09 AM EDT [facility] Hematocrit, Whole Blood 31.2(L) 34.0 - 45.0 % LAB HEMATOLOGY METHOD 05/07/2024 4:09 AM EDT [facility] Sodium, Whole Blood 150(H) 136 - 145 mmol/L LAB HEMATOLOGY METHOD 05/07/2024 4:09 AM EDT [facility] Potassium, Whole Blood 4.4 3.6 - 4.9 mmol/L LAB HEMATOLOGY METHOD 05/07/2024 4:09 AM EDT [facility] Chloride, Whole Blood 117(H) 97 - 107 mmol/L LAB HEMATOLOGY METHOD 05/07/2024 4:09 AM EDT [facility] Glucose, Whole Blood 125(H) 74 - 99 mg/dL LAB HEMATOLOGY METHOD 05/07/2024 4:09 AM EDT [facility] Ionized Calcium, Whole Blood 4.3(L) 4.6 - 5.1 mg/dL LAB HEMATOLOGY METHOD 05/07/2024 4:09 AM EDT [facility] Lactate, Arterial, Whole Blood 4.6(H) 0.5 - 1.6 mmol/L LAB HEMATOLOGY METHOD 05/07/2024 4:09 AM EDT [facility] Blood Arterial blood specimen / Unknown Arterial Puncture / Unknown 05/07/2024 3:52 AM EDT 05/07/2024 4:04 AM EDT us Maite Austin MD LAB BLOOD ORDERABLES Final Resu lt [facility] [address] [place] [address] * (ABNORMAL) Blood gas panel with oximetry, mixed venous (05/07/2024 12:46 AM EDT) pH, Mixed Venous 7.24(LL) 7.32 - 7.43 LAB HEMATOLOGY METHOD 05/07/2024 1:12 AM EDT [facility] pCO2, Mixed Venous 61(HH) 37 - 52 mmHg LAB HEMATOLOGY METHOD 05/07/2024 1:12 AM EDT [facility] pO2, Mixed Venous 28 25 - 40 mmHg LAB HEMATOLOGY METHOD 05/07/2024 1:12 AM EDT [facility] SO2, Measured, Mixed Venous 46(L) 65 - 80 % LAB HEMATOLOGY METHOD 05/07/2024 1:12 AM EDT [facility] Bicarbonate, Calculated, Mixed Venous 26 22 - 26 mmol/L LAB HEMATOLOGY METHOD 05/07/2024 1:12 AM EDT [facility] Base Excess, Mixed Venous -2.4(L) -2.0 - 3.0 mmol/L LAB HEMATOLOGY METHOD 05/07/2024 1:12 AM EDT [facility] Hematocrit, Whole Blood 38.4 34.0 - 45.0 % LAB HEMATOLOGY METHOD 05/07/2024 1:12 AM EDT [facility] Sodium, Whole Blood 149(H) 136 - 145 mmol/L LAB HEMATOLOGY METHOD 05/07/2024 1:12 AM EDT [facility] Potassium, Whole Blood 4.7 3.6 - 4.9 mmol/L LAB HEMATOLOGY METHOD 05/07/2024 1:12 AM EDT [facility] Chloride, Whole Blood 115(H) 97 - 107 mmol/L LAB HEMATOLOGY METHOD 05/07/2024 1:12 AM EDT [facility] Ionized Calcium, Whole Blood 4.7 4.6 - 5.1 mg/dL LAB HEMATOLOGY METHOD 05/07/2024 1:12 AM EDT [facility] Glucose, Whole Blood 141(H) 74 - 99 mg/dL LAB HEMATOLOGY METHOD 05/07/2024 1:12 AM EDT [facility] Oxyhemoglobin, Mixed Venous, Whole Blood 44.6 40.0 - 70.0 % LAB HEMATOLOGY METHOD 05/07/2024 1:12 AM EDT [facility] Hemoglobin Reduced, Mixed Venous, Whole Blood 53.2 % LAB HEMATOLOGY METHOD 05/07/2024 1:12 AM EDT [facility] Total Hemoglobin, Mixed Venous, Whole Blood 12.5 11.2 - 15.7 g/dL LAB HEMATOLOGY METHOD 05/07/2024 1:12 AM EDT [facility] Blood Mixed venous blood specimen / Unknown Venipuncture / Unknown 05/07/2024 12:46 AM EDT 05/07/2024 1:10 AM EDT us Maite Austin MD LAB BLOOD ORDERABLES Final Resu lt Performing Organization Address City/State/[facility] Co de Phone Number [facility] [address] [place] [address] * (ABNORMAL) Basic metabolic panel (05/07/2024 12:46 AM EDT) Glucose, Plasma 139(H) 74 - 99 mg/dL 05/07/2024 1:44 AM EDT [facility] BUN, Plasma 16 7 - 21 mg/dL 05/07/2024 1:44 AM EDT [facility] Creatinine, Plasma 1.48(H) 0.60 - 1.10 mg/dL 05/07/2024 1:44 AM EDT [facility] BUN/Creatinine Ratio 11 05/07/2024 1:44 AM EDT [facility] Sodium, Plasma 149(H) 136 - 145 mmol/L 05/07/2024 1:44 AM EDT [facility] Potassium, Plasma 5.2(H) 3.6 - 4.9 mmol/L 05/07/2024 1:44 AM EDT [facility] Chloride, Plasma 117(H) 97 - 107 mmol/L 05/07/2024 1:44 AM EDT [facility] CO2, Plasma 20(L) 22 - 29 mmol/L 05/07/2024 1:44 AM EDT [facility] Anion Gap 12 6 - 16 mmol/L 05/07/2024 1:44 AM EDT [facility] Total Calcium, Plasma 8.1(L) 8.9 - 10.2 mg/dL 05/07/2024 1:44 AM EDT [facility] eGFRcr 41.9 mL/min/1.7 3m*2 05/07/2024 1:44 AM EDT [facility] Comment:Reported eGFRcr in m L/min/1.73m2 is based the CKD-EPI 2020 equation that does not use a race coefficient. Blood Venous blood specimen / Unknown Venipuncture / Unknown 05/07/2024 12:46 AM EDT 05/07/2024 1:10 AM EDT us Maite Austin MD LAB BLOOD ORDERABLES Final Resu lt [facility] [address] [place] [address] * (ABNORMAL) CBC (05/07/2024 12:46 AM EDT) WBC Count 20.23(H) 3.70 - 10.30 10*3/uL LAB HEMATOLOGY METHOD 05/07/2024 1:19 AM EDT [facility] RBC Count 4.31 3.90 - 5.20 10*6/uL LAB HEMATOLOGY METHOD 05/07/2024 1:19 AM EDT [facility] HGB 12.8 11.2 - 15.7 g/dL LAB HEMATOLOGY METHOD 05/07/2024 1:19 AM EDT [facility] HCT 36.6 34.0 - 45.0 % LAB HEMATOLOGY METHOD 05/07/2024 1:19 AM EDT [facility] Platelet Count 249 155 - 369 10*3/uL LAB HEMATOLOGY METHOD 05/07/2024 1:19 AM EDT [facility] MCV 85 79 - 98 fL LAB HEMATOLOGY METHOD 05/07/2024 1:19 AM EDT [facility] MCH 29.7 26.0 - 32.0 pg LAB HEMATOLOGY METHOD 05/07/2024 1:19 AM EDT [facility] MCHC 35.0 30.7 - 35.5 g/dL LAB HEMATOLOGY METHOD 05/07/2024 1:19 AM EDT [facility] RDW 15.2(H) 11.5 - 14.5 % LAB HEMATOLOGY METHOD 05/07/2024 1:19 AM EDT [facility] MPV 10.3 8.8 - 12.5 fL LAB HEMATOLOGY METHOD 05/07/2024 1:19 AM EDT [facility] nRBC 0.0 <=0.0 per 100 WBCs LAB HEMATOLOGY METHOD 05/07/2024 1:19 AM EDT [facility] Blood Venous blood specimen / Unknown Venipuncture / Unknown 05/07/2024 12:46 AM EDT 05/07/2024 1:10 AM EDT us Maite Austin MD LAB BLOOD ORDERABLES Final Resu lt [facility] [address] [place] [address] * (ABNORMAL) Blood gas, arterial (05/07/2024 12:45 AM EDT) pH, Arterial 7.32(L) 7.35 - 7.45 LAB HEMATOLOGY METHOD 05/07/2024 1:11 AM EDT [facility] pCO2, Arterial 44 35 - 48 mmHg LAB HEMATOLOGY METHOD 05/07/2024 1:11 AM EDT [facility] pO2, Arterial 333(H) 83 - 108 mmHg LAB HEMATOLOGY METHOD 05/07/2024 1:11 AM EDT [facility] SO2, Measured, Arterial 100(H) 94 - 98 % LAB HEMATOLOGY METHOD 05/07/2024 1:11 AM EDT [facility] Base Excess, Arterial -3.4(L) -2.0 - 3.0 mmol/L LAB HEMATOLOGY METHOD 05/07/2024 1:11 AM EDT [facility] Bicarbonate, Calculated, Arterial 23 22 - 26 mmol/L LAB HEMATOLOGY METHOD 05/07/2024 1:11 AM EDT [facility] Hematocrit, Whole Blood 39.5 34.0 - 45.0 % LAB HEMATOLOGY METHOD 05/07/2024 1:11 AM EDT [facility] Sodium, Whole Blood 148(H) 136 - 145 mmol/L LAB HEMATOLOGY METHOD 05/07/2024 1:11 AM EDT [facility] Potassium, Whole Blood 4.7 3.6 - 4.9 mmol/L LAB HEMATOLOGY METHOD 05/07/2024 1:11 AM EDT [facility] Chloride, Whole Blood 117(H) 97 - 107 mmol/L LAB HEMATOLOGY METHOD 05/07/2024 1:11 AM EDT [facility] Glucose, Whole Blood 138(H) 74 - 99 mg/dL LAB HEMATOLOGY METHOD 05/07/2024 1:11 AM EDT [facility] Ionized Calcium, Whole Blood 4.6 4.6 - 5.1 mg/dL LAB HEMATOLOGY METHOD 05/07/2024 1:11 AM EDT [facility] Lactate, Arterial, Whole Blood 5.2(H) 0.5 - 1.6 mmol/L LAB HEMATOLOGY METHOD 05/07/2024 1:11 AM EDT [facility] Blood Arterial blood specimen / Unknown Arterial Puncture / Unknown 05/07/2024 12:45 AM EDT 05/07/2024 1:10 AM EDT us Maite Austin MD LAB BLOOD ORDERABLES Final Resu lt [facility] [address] [place] [address] * [place] CRITICAL CARE, E/M 30-74 MINUTES (05/06/2024 10:03 PM EDT) Narrative Edson Lewis MD - 05/06/2024 10:03 PM EDT Edson Lewis MD 05/21/2024 8:06 AM Critical Care Performed by: Edson Lewis MD Authorized by: Edson Lewis MD Critical care provider statement: Critical care time (minutes): 39 Critical care time was exclusive of: Separately billable procedures and treating other patients and teaching time Critical care was time spent personally by me on the following activities: Development of treatment plan with patient or surrogate, ordering and performing treatments and interventions, discussions with consultants, ordering and review of laboratory studies, discussions with primary provider, ordering and review of radiographic studies, evaluation of patient's response to treatment, examination of patient and ventilator management Critical care statement: I saw and evaluated the patient with the resident/ fellow. I discussed the case with the resident/ fellow and agree with the findings and plan as documented. Edson Lewis MD IN CLINIC/BEDSIDE ORDERABL ES Final Result * XR Chest 1 View (05/06/2024 9:09 PM EDT) Anatomical Region Laterality Modality Chest Digital Radiogra phy Impressions 05/06/2024 9:13 PM EDT Lines and catheters as above Mild vascular congestion CRITICAL RESULT: No COMMUNICATION: Per this written report. Drafted by Camila Barth MD on 05/06/2024 9:12 PM Final report signed by Camila Barth MD on 05/06/2024 9:13 PM Narrative 05/06/2024 9:13 PM EDT CLINICAL INDICATION: Post-Op Cardiac Surgery TECHNIQUE: XR CHEST 1 VIEW COMPARISON: 05/03/2024 FINDINGS: The cardiomediastinal silhouette is prominent. Endotracheal tube tip overlies mid thoracic trachea. Bilateral chest tubes, mediastinal drain, right IJ [place] catheter with the tip overlying the main pulmonary artery, median sternotomy wires and mediastinal clips are present. Mild vascular congestion. No pleural effusion or visible pneumothorax. Procedure Note Camila Barth MD - 05/06/2024 CLINICAL INDICATION: Post-Op Cardiac Surgery TECHNIQUE: XR CHEST 1 VIEW COMPARISON: 05/03/2024 FINDINGS: The cardiomediastinal silhouette is prominent. Endotracheal tube tipoverlies mid thoracic trachea. Bilateral chest tubes, mediastinal drain,right IJ [place] catheter with the tip overlying the main pulmonaryartery, median sternotomy wires and mediastinal clips are present. Mildvascular congestion. No pleural effusion or visible pneumothorax. IMPRESSION: Lines and catheters as above Mild vascular congestion CRITICAL RESULT: No COMMUNICATION: Per this written report. Drafted by Camila Barth MD on 05/06/2024 9:12 PM Final report signed by Camila Barth MD on 05/06/2024 9:13 PM Result Anastasiia Austin MD IMG XR PROCEDURES Final Result * Transfuse RBC (05/06/2024 9:09 PM EDT) Result Anastasiia Khoury MD BLOOD TRANSFUSION ORDERABL ES Final Result * Transfuse RBC (05/06/2024 9:09 PM EDT) Result Anastasiia Khoury MD BLOOD TRANSFUSION ORDERABL ES Final Result * Transfuse RBC (05/06/2024 9:09 PM EDT) Result Anastasiia Khoury MD BLOOD TRANSFUSION ORDERABL ES Final Result * Transfuse platelets (05/06/2024 9:09 PM EDT) Result Anastasiia Khoury MD BLOOD TRANSFUSION ORDERABL ES Final Result * Transfuse RBC (05/06/2024 9:08 PM EDT) Result Anastasiia Khoury MD BLOOD TRANSFUSION ORDERABL ES Final Result * Transfuse platelets (05/06/2024 9:08 PM EDT) Result Anastasiia Alfie Khoury MD BLOOD TRANSFUSION ORDERABL ES Final Result * Deena auris Surveillance by PCR (05/06/2024 8:44 PM EDT) Deena auris PCR Result Not Detected Not Detected 05/07/2024 11:20 AM EDT [facility] Swab (Axilla and Groin) Non-blood Collection / Unknown 05/06/2024 8:44 PM EDT 05/06/2024 9:17 PM EDT Narrative [facility] - 05/07/2024 11:20 AM EDT This PCR assay was developed and its performance characteristics determined by [facility] as appropriate for clinical purposes. This assay has not been cleared or approved by the FDA, but is performed in a CLIA regulated laboratory that is qualified to perform high-complexity testing. us Maite Austin MD LAB MICROBIOLOGY - GENERAL ORDE RABLES Final Result [facility] [address] [place] [address] * Multi Drug Resistance Test (05/06/2024 8:44 PM EDT) Culture No growth at day 1 05/07/2024 6:58 PM EDT [facility] Swab (Nares and Jacey Rectal) Non-blood Collection / Unknown 05/06/2024 8:44 PM EDT 05/06/2024 9:17 PM EDT us Maite Austin MD LAB MICROBIOLOGY - GENERAL [place] Final Result Performing Organization Address City/[facility]/ZIP Co de Phone Number [facility] [address] [place] [address] * (ABNORMAL) Blood gas, arterial (05/06/2024 8:43 PM EDT) pH, Arterial 7.29(L) 7.35 - 7.45 LAB HEMATOLOGY METHOD 05/06/2024 8:55 PM EDT [facility] pCO2, Arterial 54(H) 35 - 48 mmHg LAB HEMATOLOGY METHOD 05/06/2024 8:55 PM EDT [facility] pO2, Arterial 160(H) 83 - 108 mmHg LAB HEMATOLOGY METHOD 05/06/2024 8:55 PM EDT [facility] SO2, Measured, Arterial 100(H) 94 - 98 % LAB HEMATOLOGY METHOD 05/06/2024 8:55 PM EDT [facility] Base Excess, Arterial -1.7 -2.0 - 3.0 mmol/L LAB HEMATOLOGY METHOD 05/06/2024 8:55 PM EDT [facility] Bicarbonate, Calculated, Arterial 26 22 - 26 mmol/L LAB HEMATOLOGY METHOD 05/06/2024 8:55 PM EDT [facility] Hematocrit, Whole Blood 44.1 34.0 - 45.0 % LAB HEMATOLOGY METHOD 05/06/2024 8:55 PM EDT [facility] Sodium, Whole Blood 150(H) 136 - 145 mmol/L LAB HEMATOLOGY METHOD 05/06/2024 8:55 PM EDT [facility] Potassium, Whole Blood 4.4 3.6 - 4.9 mmol/L LAB HEMATOLOGY METHOD 05/06/2024 8:55 PM EDT [facility] Chloride, Whole Blood 115(H) 97 - 107 mmol/L LAB HEMATOLOGY METHOD 05/06/2024 8:55 PM EDT [facility] Glucose, Whole Blood 111(H) 74 - 99 mg/dL LAB HEMATOLOGY METHOD 05/06/2024 8:55 PM EDT [facility] Ionized Calcium, Whole Blood 4.7 4.6 - 5.1 mg/dL LAB HEMATOLOGY METHOD 05/06/2024 8:55 PM EDT [facility] Lactate, Arterial, Whole Blood 3.7(H) 0.5 - 1.6 mmol/L LAB HEMATOLOGY METHOD 05/06/2024 8:55 PM EDT [facility] Blood Arterial blood specimen / Unknown Arterial Puncture / Unknown 05/06/2024 8:43 PM EDT 05/06/2024 8:53 PM EDT us Maite Austin MD LAB BLOOD ORDERABLES Final Resu lt [facility] [address] [place] [address] * (ABNORMAL) APTT (05/06/2024 8:42 PM EDT) aPTT 54(H) 25 - 35 sec LAB COAGULATION METHOD 05/06/2024 9:34 PM EDT [facility] Blood Venous blood specimen / Unknown Venipuncture / Unknown 05/06/2024 8:42 PM EDT 05/06/2024 8:53 PM EDT us Maite Austin MD LAB BLOOD ORDERABLES Final Resu lt [facility] [address] [place] [address] * (ABNORMAL) Protime-INR (05/06/2024 8:42 PM EDT) Prothrombin Time 18.0(H) 12.0 - 14.3 sec LAB COAGULATION METHOD 05/06/2024 9:34 PM EDT [facility] INR 1.5(H) 0.9 - 1.1 LAB COAGULATION METHOD 05/06/2024 9:34 PM EDT [facility] Blood Venous blood specimen / Unknown Venipuncture / Unknown 05/06/2024 8:42 PM EDT 05/06/2024 8:53 PM EDT Narrative [facility] - 05/06/2024 9:34 PM EDT OPTIMAL INR RANGES FOR PATIENT ON ORAL ANTICOAGULANT THERAPY Prevention of venous thromboembolism INR 2.0 to 3.0 In patients with heart disease: Atrial fibrillation INR 2.0 to 3.0 Valvular heart disease INR 2.0 to 3.0 Tissue heart valves INR 2.0 to 3.0 Mechanical prosthetic valves INR 2.5 to 3.5 Prevention of recurrent MS INR 2.5 to 3.5 us Maite Austin MD LAB BLOOD ORDERABLES Final Resu lt Performing Organization Address City/[facility]/ZIP Co de Phone Number [facility] [address] [place] [address] * Phosphorus (05/06/2024 8:42 PM EDT) Phosphorus, Plasma 2.6 2.5 - 4.5 mg/dL 05/06/2024 9:44 PM EDT [facility] Blood Venous blood specimen / Unknown Venipuncture / Unknown 05/06/2024 8:42 PM EDT 05/06/2024 8:53 PM EDT us Maite Austin MD LAB BLOOD ORDERABLES Final Resu lt [facility] [address] [place] [address] * (ABNORMAL) Magnesium (05/06/2024 8:42 PM EDT) Magnesium, Plasma 4.5(H) 1.9 - 2.4 mg/dL 05/06/2024 9:44 PM EDT [facility] Blood Venous blood specimen / Unknown Venipuncture / Unknown 05/06/2024 8:42 PM EDT 05/06/2024 8:53 PM EDT us Maite Austin MD LAB BLOOD ORDERABLES Final Resu lt [facility] [address] [place] [address] * (ABNORMAL) Basic metabolic panel (05/06/2024 8:42 PM EDT) Glucose, Plasma 112(H) 74 - 99 mg/dL 05/06/2024 9:44 PM EDT [facility] BUN, Plasma 12 7 - 21 mg/dL 05/06/2024 9:44 PM EDT [facility] Creatinine, Plasma 1.04 0.60 - 1.10 mg/dL 05/06/2024 9:44 PM EDT [facility] BUN/Creatinine Ratio 12 05/06/2024 9:44 PM EDT [facility] Sodium, Plasma 150(H) 136 - 145 mmol/L 05/06/2024 9:44 PM EDT [facility] Potassium, Plasma 4.8 3.6 - 4.9 mmol/L 05/06/2024 9:44 PM EDT [facility] Comment:Hemolyzed, result ma y be falsely increased. Chloride, Plasma 116(H) 97 - 107 mmol/L 05/06/2024 9:44 PM EDT [facility] CO2, Plasma 23 22 - 29 mmol/L 05/06/2024 9:44 PM EDT [facility] Anion Gap 11 6 - 16 mmol/L 05/06/2024 9:44 PM EDT [facility] Total Calcium, Plasma 8.1(L) 8.9 - 10.2 mg/dL 05/06/2024 9:44 PM EDT [facility] eGFRcr 64.0 mL/min/1.7 3m*2 05/06/2024 9:44 PM EDT [facility] Comment:Reported eGFRcr in m L/min/1.73m2 is based the CKD-EPI 2020 equation that does not use a race coefficient. Blood Venous blood specimen / Unknown Venipuncture / Unknown 05/06/2024 8:42 PM EDT 05/06/2024 8:53 PM EDT us Maite Austin MD LAB BLOOD ORDERABLES Final Resu lt [facility] [address] [place] [address] * (ABNORMAL) CBC (05/06/2024 8:42 PM EDT) WBC Count 23.57(H) 3.70 - 10.30 10*3/uL LAB HEMATOLOGY METHOD 05/06/2024 9:00 PM EDT [facility] RBC Count 4.79 3.90 - 5.20 10*6/uL LAB HEMATOLOGY METHOD 05/06/2024 9:00 PM EDT [facility] HGB 14.3 11.2 - 15.7 g/dL LAB HEMATOLOGY METHOD 05/06/2024 9:00 PM EDT [facility] HCT 40.8 34.0 - 45.0 % LAB HEMATOLOGY METHOD 05/06/2024 9:00 PM EDT [facility] Platelet Count 248 155 - 369 10*3/uL LAB HEMATOLOGY METHOD 05/06/2024 9:00 PM EDT [facility] MCV 85 79 - 98 fL LAB HEMATOLOGY METHOD 05/06/2024 9:00 PM EDT [facility] MCH 29.9 26.0 - 32.0 pg LAB HEMATOLOGY METHOD 05/06/2024 9:00 PM EDT [facility] MCHC 35.0 30.7 - 35.5 g/dL LAB HEMATOLOGY METHOD 05/06/2024 9:00 PM EDT [facility] RDW 14.6(H) 11.5 - 14.5 % LAB HEMATOLOGY METHOD 05/06/2024 9:00 PM EDT [facility] MPV 9.8 8.8 - 12.5 fL LAB HEMATOLOGY METHOD 05/06/2024 9:00 PM EDT [facility] nRBC 0.0 <=0.0 per 100 WBCs LAB HEMATOLOGY METHOD 05/06/2024 9:00 PM EDT [facility] Blood Venous blood specimen / Unknown Venipuncture / Unknown 05/06/2024 8:42 PM EDT 05/06/2024 8:53 PM EDT Maite Austin MD LAB BLOOD ORDERABLES Final Resu lt [facility] [address] [place] [address] * ECG Adult - Upon Admissoin to CVICU (05/06/2024 8:38 PM EDT) EKG DIAGNOSIS CLASS Abnormal MUSE ECG Ventricular Rate 103 BPM MUSE ECG Atrial Rate 103 BPM MUSE ECG WA Interval 158 ms MUSE ECG QRSD Interval 96 ms MUSE ECG QT Interval 424 ms MUSE ECG QTC Interval 555 ms MUSE ECG P [place] 81 degrees MUSE ECG R [place] 71 degrees MUSE ECG T Wave [place] 14 degrees MUSE ECG Diagnosis Sinus tachycardia MUSE ECG Diagnosis Incomplete right bundle branch block MUSE ECG Diagnosis Septal infarct , age undetermined MUSE ECG Diagnosis Prolonged QT MUSE ECG Diagnosis Abnormal ECG MUSE ECG Diagnosis MUSE ECG Diagnosis Confirmed by Pratik Aiken ([id number]) on 05/07/2024 1:32:28 PM MUSE ECG 05/06/2024 8:38 PM EDT 05/07/2024 1:32 PM EDT Maite Austin MD ECG ORDERABLES Final Result Performing Organization Address City/[facility] Co de Phone Number MUSE ECG * (ABNORMAL) POCT arterial blood gas gem (05/06/2024 7:39 PM EDT) pH, Arterial 7.30(L) 7.35 - 7.45 05/06/2024 7:40 PM EDT [facility] pCO2, Arterial 48 35 - 48 mm Hg 05/06/2024 7:40 PM EDT [facility] pO2, Arterial 72(L) 83 - 108 mm Hg 05/06/2024 7:40 PM [facility]T [facility] SO2, Arterial 97 94 - 98 % 05/06/2024 7:40 PM EDT [facility] Base Excess, Arterial -3.0(L) -2 - 3 mmol/L 05/06/2024 7:40 PM EDT [facility] HCO3, Arterial 23.6 22 - 26 mmol/L 05/06/2024 7:40 PM EDT [facility] Total Hemoglobin, Arterial, Whole Blood 11.7 11.2 - 15.7 g/dL 05/06/2024 7:40 PM EDT [facility] Hematocrit, Arterial 35.0 34.0 - 45.0 % 05/06/2024 7:40 PM EDT [facility] Sodium, Arterial 147(H) 136 - 145 mmol/L 05/06/2024 7:40 PM EDT [facility] Potassium, Arterial 4.7 3.6 - 4.9 mmol/L 05/06/2024 7:40 PM EDT [facility] Chloride, Whole Blood 115(H) 97 - 107 mmol/L 05/06/2024 7:40 PM EDT [facility] Glucose, Arterial 105(H) 74 - 99 mg/dL 05/06/2024 7:40 PM EDT [facility] Ionized Calcium, Arterial 4.8 4.6 - 5.1 mg/dL 05/06/2024 7:40 PM EDT [facility] Lactate, Arterial 3.7(H) 0.5 - 1.6 mmol/L 05/06/2024 7:40 PM EDT [facility] Body Temperature 37.0 Celsius 05/06/2024 7:40 PM EDT [facility] pH, Temp Corrected, Arterial 7.30(L) 7.35 - 7.45 05/06/2024 7:40 PM EDT [facility] pCO2, Temp Corrected, Arterial 48 35 - 48 mm Hg 05/06/2024 7:40 PM EDT [facility] pO2, Temp Corrected, Arterial 72(L) 83 - 108 mm Hg 05/06/2024 7:40 PM EDT [facility] Field Hockey Coach ID Jake Angeles 05/06/2024 7:40 PM EDT [facility] Blood, Arterial Whole blood specimen / Unknown 05/06/2024 7:39 PM EDT 05/06/2024 7:40 PM EDT us Maite Austin MD LAB POINT OF CARE TE ST DOCKED DEVICE UNSOLICITED RESULTS Final Result [facility] [address] [place] [address] * (ABNORMAL) POCT arterial blood gas gem (05/06/2024 7:09 PM EDT) pH, Arterial 7.28(L) 7.35 - 7.45 05/06/2024 7:11 PM EDT [facility] pCO2, Arterial 48 35 - 48 mm Hg 05/06/2024 7:11 PM EDT [facility] pO2, Arterial 304(H) 83 - 108 mm Hg 05/06/2024 7:11 PM EDT [facility] SO2, Arterial 100(H) 94 - 98 % 05/06/2024 7:11 PM EDT [facility] Base Excess, Arterial -4.1(L) -2 - 3 mmol/L 05/06/2024 7:11 PM EDT [facility] HCO3, Arterial 22.6 22 - 26 mmol/L 05/06/2024 7:11 PM EDT [facility] Total Hemoglobin, Arterial, Whole Blood 9.4(L) 11.2 - 15.7 g/dL 05/06/2024 7:11 PM EDT [facility] Hematocrit, Arterial 28.0(L) 34.0 - 45.0 % 05/06/2024 7:11 PM EDT [facility] Sodium, Arterial 149(H) 136 - 145 mmol/L 05/06/2024 7:11 PM EDT [facility] Potassium, Arterial 5.0(H) 3.6 - 4.9 mmol/L 05/06/2024 7:11 PM EDT [facility] Chloride, Whole Blood 116(H) 97 - 107 mmol/L 05/06/2024 7:11 PM EDT [facility] Glucose, Arterial 134(H) 74 - 99 mg/dL 05/06/2024 7:11 PM EDT [facility] Ionized Calcium, Arterial 4.6 4.6 - 5.1 mg/dL 05/06/2024 7:11 PM EDT [facility] Lactate, Arterial 5.1(H) 0.5 - 1.6 mmol/L 05/06/2024 7:11 PM EDT [facility] Body Temperature 37.0 Celsius 05/06/2024 7:11 PM EDT [facility] pH, Temp Corrected, Arterial 7.28(L) 7.35 - 7.45 05/06/2024 7:11 PM EDT [facility] pCO2, Temp Corrected, Arterial 48 35 - 48 mm Hg 05/06/2024 7:11 PM EDT [facility] pO2, Temp Corrected, Arterial 304(H) 83 - 108 mm Hg 05/06/2024 7:11 PM EDT [facility] Field Hockey Coach ID Jake Angeles 05/06/2024 7:11 PM EDT [facility] Blood, Arterial Whole blood specimen / Unknown 05/06/2024 7:09 PM EDT 05/06/2024 7:11 PM EDT us Maite Austin MD LAB POINT OF CARE TE ST DOCKED DEVICE UNSOLICITED RESULTS Final Result Performing Organization Address City/[facility] Co de Phone Number [facility] [address] [place] [address] * Prepare Leukocyte Reduced Platelets: 1 Units (05/06/2024 6:40 PM EDT) Pathologist [facility] Product Code [id number] BLOO D BANK Dispense Status Transfused BLOOD BANK Blood Expiration Date [id number] BLOOD BANK Unit Number [id number] CH B LOOD BANK Product Blood Type 6200 BLOOD BANK Blood Type A+ BLOOD BANK Blood Venous blood specimen / Unknown us Alfie Khoury MD BLOOD BANK PRODUCT ORDERAB LES Final Result Performing Organization Address [facility] Co de Phone Number BLOOD BANK [address] * (ABNORMAL) POCT arterial blood gas gem (05/06/2024 6:38 PM EDT) pH, Arterial 7.29(L) 7.35 - 7.45 05/06/2024 6:40 PM EDT [facility] pCO2, Arterial 47 35 - 48 mm Hg 05/06/2024 6:40 PM EDT [facility] pO2, Arterial 425(H) 83 - 108 mm Hg 05/06/2024 6:40 PM EDT [facility] SO2, Arterial 100(H) 94 - 98 % 05/06/2024 6:40 PM EDT [facility] Base Excess, Arterial -3.8(L) -2 - 3 mmol/L 05/06/2024 6:40 PM EDT [facility] HCO3, Arterial 22.6 22 - 26 mmol/L 05/06/2024 6:40 PM EDT [facility] Total Hemoglobin, Arterial, Whole Blood 7.2(L) 11.2 - 15.7 g/dL 05/06/2024 6:40 PM EDT [facility] Hematocrit, Arterial 22.0(L) 34.0 - 45.0 % 05/06/2024 6:40 PM EDT [facility] Sodium, Arterial 148(H) 136 - 145 mmol/L 05/06/2024 6:40 PM EDT [facility] Potassium, Arterial 4.9 3.6 - 4.9 mmol/L 05/06/2024 6:40 PM EDT [facility] Chloride, Whole Blood 116(H) 97 - 107 mmol/L 05/06/2024 6:40 PM EDT [facility] Glucose, Arterial 141(H) 74 - 99 mg/dL 05/06/2024 6:40 PM EDT [facility] Ionized Calcium, Arterial 4.8 4.6 - 5.1 mg/dL 05/06/2024 6:40 PM EDT [facility] Lactate, Arterial 5.4(H) 0.5 - 1.6 mmol/L 05/06/2024 6:40 PM EDT [facility] Body Temperature 37.0 Celsius 05/06/2024 6:40 PM EDT [facility] pH, Temp Corrected, Arterial 7.29(L) 7.35 - 7.45 05/06/2024 6:40 PM EDT [facility] pCO2, Temp Corrected, Arterial 47 35 - 48 mm Hg 05/06/2024 6:40 PM EDT [facility] pO2, Temp Corrected, Arterial 425(H) 83 - 108 mm Hg 05/06/2024 6:40 PM EDT [facility] Field Hockey Coach ID Jake Angeles 05/06/2024 6:40 PM EDT [facility] Blood, Arterial Whole blood specimen / Unknown 05/06/2024 6:38 PM EDT 05/06/2024 6:40 PM EDT us Maite Austin MD LAB POINT OF CARE TE ST DOCKED DEVICE UNSOLICITED RESULTS Final Result [facility] [address] [place] [address] * (ABNORMAL) POCT arterial blood gas gem (05/06/2024 6:12 PM EDT) pH, Arterial 7.45 7.35 - 7.45 05/06/2024 6:13 PM EDT [facility] pCO2, Arterial 30(L) 35 - 48 mm Hg 05/06/2024 6:13 PM EDT [facility] pO2, Arterial 389(H) 83 - 108 mm Hg 05/06/2024 6:13 PM EDT [facility] SO2, Arterial 100(H) 94 - 98 % 05/06/2024 6:13 PM EDT [facility] Base Excess, Arterial -2.7(L) -2 - 3 mmol/L 05/06/2024 6:13 PM EDT [facility] HCO3, Arterial 20.9(L) 22 - 26 mmol/L 05/06/2024 6:13 PM EDT [facility] Total Hemoglobin, Arterial, Whole Blood 7.6(L) 11.2 - 15.7 g/dL 05/06/2024 6:13 PM EDT [facility] Hematocrit, Arterial 23.0(L) 34.0 - 45.0 % 05/06/2024 6:13 PM EDT [facility] Sodium, Arterial 149(H) 136 - 145 mmol/L 05/06/2024 6:13 PM EDT [facility] Potassium, Arterial 5.0(H) 3.6 - 4.9 mmol/L 05/06/2024 6:13 PM EDT [facility] Chloride, Whole Blood 118(H) 97 - 107 mmol/L 05/06/2024 6:13 PM EDT [facility] Glucose, Arterial 209(H) 74 - 99 mg/dL 05/06/2024 6:13 PM EDT [facility] Ionized Calcium, Arterial 4.4(L) 4.6 - 5.1 mg/dL 05/06/2024 6:13 PM EDT [facility] Lactate, Arterial 5.2(H) 0.5 - 1.6 mmol/L 05/06/2024 6:13 PM EDT [facility] Body Temperature 37.0 Celsius 05/06/2024 6:13 PM EDT [facility] pH, Temp Corrected, Arterial 7.45 7.35 - 7.45 05/06/2024 6:13 PM EDT [facility] pCO2, Temp Corrected, Arterial 30(L) 35 - 48 mm Hg 05/06/2024 6:13 PM EDT [facility] pO2, Temp Corrected, Arterial 389(H) 83 - 108 mm Hg 05/06/2024 6:13 PM EDT [facility] Field Hockey Coach ID Jake Angeles 05/06/2024 6:13 PM EDT [facility] Blood, Arterial Whole blood specimen / Unknown 05/06/2024 6:12 PM EDT 05/06/2024 6:13 PM EDT us Maite Austin MD LAB POINT OF CARE TE ST DOCKED DEVICE UNSOLICITED RESULTS Final Result [facility] [address] [place] [address] * (ABNORMAL) POCT arterial blood gas gem (05/06/2024 5:57 PM EDT) pH, Arterial 7.44 7.35 - 7.45 05/06/2024 5:58 PM EDT [facility] pCO2, Arterial 28(L) 35 - 48 mm Hg 05/06/2024 5:58 PM EDT [facility] pO2, Arterial 335(H) 83 - 108 mm Hg 05/06/2024 5:58 PM EDT [facility] SO2, Arterial 100(H) 94 - 98 % 05/06/2024 5:58 PM EDT [facility] Base Excess, Arterial -4.6(L) -2 - 3 mmol/L 05/06/2024 5:58 PM EDT [facility] HCO3, Arterial 19.0(L) 22 - 26 mmol/L 05/06/2024 5:58 PM EDT [facility] Total Hemoglobin, Arterial, Whole Blood 6.9(L) 11.2 - 15.7 g/dL 05/06/2024 5:58 PM EDT [facility] Hematocrit, Arterial 21.0(L) 34.0 - 45.0 % 05/06/2024 5:58 PM EDT [facility] Sodium, Arterial 144 136 - 145 mmol/L 05/06/2024 5:58 PM EDT [facility] Potassium, Arterial 5.7(H) 3.6 - 4.9 mmol/L 05/06/2024 5:58 PM EDT [facility] Chloride, Whole Blood 116(H) 97 - 107 mmol/L 05/06/2024 5:58 PM EDT [facility] Glucose, Arterial 177(H) 74 - 99 mg/dL 05/06/2024 5:58 PM EDT [facility] Ionized Calcium, Arterial 4.8 4.6 - 5.1 mg/dL 05/06/2024 5:58 PM EDT [facility] Lactate, Arterial 4.7(H) 0.5 - 1.6 mmol/L 05/06/2024 5:58 PM EDT [facility] Body Temperature 37.0 Celsius 05/06/2024 5:58 PM EDT [facility] pH, Temp Corrected, Arterial 7.44 7.35 - 7.45 05/06/2024 5:58 PM EDT [facility] pCO2, Temp Corrected, Arterial 28(L) 35 - 48 mm Hg 05/06/2024 5:58 PM EDT [facility] pO2, Temp Corrected, Arterial 335(H) 83 - 108 mm Hg 05/06/2024 5:58 PM EDT [facility] [employer] ID Jake Angeles 05/06/2024 5:58 PM EDT [facility] Blood, Arterial Whole blood specimen / Unknown 05/06/2024 5:57 PM EDT 05/06/2024 5:58 PM EDT us Maite Austin MD LAB POINT OF CARE TE ST DOCKED DEVICE UNSOLICITED RESULTS Final Result [facility] [address] [place] [address] * (ABNORMAL) POCT arterial blood gas gem (05/06/2024 5:42 PM EDT) pH, Arterial 7.48(H) 7.35 - 7.45 05/06/2024 5:43 PM EDT [facility] pCO2, Arterial 37 35 - 48 mm Hg 05/06/2024 5:43 PM EDT [facility] pO2, Arterial 337(H) 83 - 108 mm Hg 05/06/2024 5:43 PM EDT [facility] SO2, Arterial 99(H) 94 - 98 % 05/06/2024 5:43 PM EDT [facility] Base Excess, Arterial 3.8(H) -2 - 3 mmol/L 05/06/2024 5:43 PM EDT [facility] HCO3, Arterial 27.6(H) 22 - 26 mmol/L 05/06/2024 5:43 PM EDT [facility] Total Hemoglobin, Arterial, Whole Blood 7.5(L) 11.2 - 15.7 g/dL 05/06/2024 5:43 PM EDT [facility] Hematocrit, Arterial 23.0(L) 34.0 - 45.0 % 05/06/2024 5:43 PM EDT [facility] Sodium, Arterial 144 136 - 145 mmol/L 05/06/2024 5:43 PM EDT [facility] Potassium, Arterial 6.8(HH) 3.6 - 4.9 mmol/L 05/06/2024 5:43 PM EDT [facility] Chloride, Whole Blood 113(H) 97 - 107 mmol/L 05/06/2024 5:43 PM EDT [facility] Glucose, Arterial 224(H) 74 - 99 mg/dL 05/06/2024 5:43 PM EDT [facility] Ionized Calcium, Arterial 4.9 4.6 - 5.1 mg/dL 05/06/2024 5:43 PM EDT [facility] Lactate, Arterial 5.3(H) 0.5 - 1.6 mmol/L 05/06/2024 5:43 PM EDT [facility] Body Temperature 37.0 Celsius 05/06/2024 5:43 PM EDT [facility] pH, Temp Corrected, Arterial 7.48(H) 7.35 - 7.45 05/06/2024 5:43 PM EDT [facility] pCO2, Temp Corrected, Arterial 37 35 - 48 mm Hg 05/06/2024 5:43 PM EDT [facility] pO2, Temp Corrected, Arterial 337(H) 83 - 108 mm Hg 05/06/2024 5:43 PM EDT [facility] Field Hockey Coach ID Yuri Hood 05/06/2024 5:43 PM EDT [facility] Blood, Arterial Whole blood specimen / Unknown 05/06/2024 5:42 PM EDT 05/06/2024 5:43 PM EDT us Maite Austin MD LAB POINT OF CARE TE ST DOCKED DEVICE UNSOLICITED RESULTS Final Result Performing Organization Address City/State/[facility] Co de Phone Number [facility] [address] [place] [id number] * (ABNORMAL) POCT arterial blood gas gem (05/06/2024 5:08 PM EDT) pH, Arterial 7.38 7.35 - 7.45 05/06/2024 5:10 PM EDT [facility] pCO2, Arterial 37 35 - 48 mm Hg 05/06/2024 5:10 PM EDT [facility] pO2, Arterial 343(H) 83 - 108 mm Hg 05/06/2024 5:10 PM EDT [facility] SO2, Arterial 99(H) 94 - 98 % 05/06/2024 5:10 PM EDT [facility] Base Excess, Arterial -2.9(L) -2 - 3 mmol/L 05/06/2024 5:10 PM EDT [facility] HCO3, Arterial 21.9(L) 22 - 26 mmol/L 05/06/2024 5:10 PM EDT [facility] Total Hemoglobin, Arterial, Whole Blood 8.2(L) 11.2 - 15.7 g/dL 05/06/2024 5:10 PM EDT [facility] Hematocrit, Arterial 25.0(L) 34.0 - 45.0 % 05/06/2024 5:10 PM EDT [facility] Sodium, Arterial 144 136 - 145 mmol/L 05/06/2024 5:10 PM EDT [facility] Potassium, Arterial 6.9(HH) 3.6 - 4.9 mmol/L 05/06/2024 5:10 PM EDT [facility] Chloride, Whole Blood 112(H) 97 - 107 mmol/L 05/06/2024 5:10 PM EDT [facility] Glucose, Arterial 177(H) 74 - 99 mg/dL 05/06/2024 5:10 PM EDT [facility] Ionized Calcium, Arterial 4.0(L) 4.6 - 5.1 mg/dL 05/06/2024 5:10 PM EDT [facility] Lactate, Arterial 4.7(H) 0.5 - 1.6 mmol/L 05/06/2024 5:10 PM EDT [facility] Body Temperature 37.0 Celsius 05/06/2024 5:10 PM EDT [facility] pH, Temp Corrected, Arterial 7.38 7.35 - 7.45 05/06/2024 5:10 PM EDT [facility] pCO2, Temp Corrected, Arterial 37 35 - 48 mm Hg 05/06/2024 5:10 PM EDT [facility] pO2, Temp Corrected, Arterial 343(H) 83 - 108 mm Hg 05/06/2024 5:10 PM EDT [facility] Field Hockey Coach ID Yuri Hood 05/06/2024 5:10 PM EDT [facility] Blood, Arterial Whole blood specimen / Unknown 05/06/2024 5:08 PM EDT 05/06/2024 5:10 PM EDT us Maite Austin MD LAB POINT OF CARE TE ST DOCKED DEVICE UNSOLICITED RESULTS Final Result [facility] [address] [place] [address] * (ABNORMAL) POCT arterial blood gas gem (05/06/2024 4:43 PM EDT) pH, Arterial 7.36 7.35 - 7.45 05/06/2024 4:44 PM EDT [facility] pCO2, Arterial 39 35 - 48 mm Hg 05/06/2024 4:44 PM EDT [facility] pO2, Arterial 348(H) 83 - 108 mm Hg 05/06/2024 4:44 PM EDT [facility] SO2, Arterial 100(H) 94 - 98 % 05/06/2024 4:44 PM EDT [facility] Base Excess, Arterial -3.2(L) -2 - 3 mmol/L 05/06/2024 4:44 PM EDT [facility] HCO3, Arterial 22.0 22 - 26 mmol/L 05/06/2024 4:44 PM EDT [facility] Total Hemoglobin, Arterial, Whole Blood 6.9(L) 11.2 - 15.7 g/dL 05/06/2024 4:44 PM EDT [facility] Hematocrit, Arterial 21.0(L) 34.0 - 45.0 % 05/06/2024 4:44 PM EDT [facility] Sodium, Arterial 141 136 - 145 mmol/L 05/06/2024 4:44 PM EDT [facility] Potassium, Arterial 7.3(HH) 3.6 - 4.9 mmol/L 05/06/2024 4:44 PM EDT [facility] Chloride, Whole Blood 112(H) 97 - 107 mmol/L 05/06/2024 4:44 PM EDT [facility] Glucose, Arterial 156(H) 74 - 99 mg/dL 05/06/2024 4:44 PM EDT [facility] Ionized Calcium, Arterial 4.4(L) 4.6 - 5.1 mg/dL 05/06/2024 4:44 PM EDT [facility] Lactate, Arterial 4.0(H) 0.5 - 1.6 mmol/L 05/06/2024 4:44 PM EDT [facility] Body Temperature 37.0 Celsius 05/06/2024 4:44 PM EDT [facility] pH, Temp Corrected, Arterial 7.36 7.35 - 7.45 05/06/2024 4:44 PM EDT [facility] pCO2, Temp Corrected, Arterial 39 35 - 48 mm Hg 05/06/2024 4:44 PM EDT [facility] pO2, Temp Corrected, Arterial 348(H) 83 - 108 mm Hg 05/06/2024 4:44 PM EDT [facility] Field Hockey Coach Yuri Lunsford 05/06/2024 4:44 PM EDT [facility] Blood, Arterial Whole blood specimen / Unknown 05/06/2024 4:43 PM EDT 05/06/2024 4:44 PM EDT us Maite Austin MD LAB POINT OF CARE TE ST DOCKED DEVICE UNSOLICITED RESULTS Final Result [facility] [address] [place] [address] * (ABNORMAL) POCT arterial blood gas gem (05/06/2024 4:10 PM EDT) pH, Arterial 7.38 7.35 - 7.45 05/06/2024 4:12 PM EDT [facility] pCO2, Arterial 41 35 - 48 mm Hg 05/06/2024 4:12 PM EDT [facility] pO2, Arterial 276(H) 83 - 108 mm Hg 05/06/2024 4:12 PM EDT [facility] SO2, Arterial 99(H) 94 - 98 % 05/06/2024 4:12 PM EDT [facility] Base Excess, Arterial -0.8 -2 - 3 mmol/L 05/06/2024 4:12 PM EDT [facility] HCO3, Arterial 24.3 22 - 26 mmol/L 05/06/2024 4:12 PM EDT [facility] Total Hemoglobin, Arterial, Whole Blood 7.8(L) 11.2 - 15.7 g/dL 05/06/2024 4:12 PM EDT [facility] Hematocrit, Arterial 23.0(L) 34.0 - 45.0 % 05/06/2024 4:12 PM EDT [facility] Sodium, Arterial 143 136 - 145 mmol/L 05/06/2024 4:12 PM EDT [facility] Potassium, Arterial 6.3(H) 3.6 - 4.9 mmol/L 05/06/2024 4:12 PM EDT [facility] Chloride, Whole Blood 112(H) 97 - 107 mmol/L 05/06/2024 4:12 PM EDT [facility] Glucose, Arterial 134(H) 74 - 99 mg/dL 05/06/2024 4:12 PM EDT [facility] Ionized Calcium, Arterial 4.9 4.6 - 5.1 mg/dL 05/06/2024 4:12 PM EDT [facility] Lactate, Arterial 3.3(H) 0.5 - 1.6 mmol/L 05/06/2024 4:12 PM EDT [facility] Body Temperature 37.0 Celsius 05/06/2024 4:12 PM EDT [facility] pH, Temp Corrected, Arterial 7.38 7.35 - 7.45 05/06/2024 4:12 PM EDT [facility] pCO2, Temp Corrected, Arterial 41 35 - 48 mm Hg 05/06/2024 4:12 PM EDT [facility] pO2, Temp Corrected, Arterial 276(H) 83 - 108 mm Hg 05/06/2024 4:12 PM EDT [facility] Field Hockey Coach ID Yuri Hood 05/06/2024 4:12 PM EDT [facility] Blood, Arterial Whole blood specimen / Unknown 05/06/2024 4:10 PM EDT 05/06/2024 4:12 PM EDT us Maite Austin MD LAB POINT OF CARE TE ST DOCKED DEVICE UNSOLICITED RESULTS Final Result [facility] [address] [place] [address] * (ABNORMAL) POCT arterial blood gas gem (05/06/2024 3:45 PM EDT) pH, Arterial 7.37 7.35 - 7.45 05/06/2024 3:46 PM EDT [facility] pCO2, Arterial 38 35 - 48 mm Hg 05/06/2024 3:46 PM EDT [facility] pO2, Arterial 277(H) 83 - 108 mm Hg 05/06/2024 3:46 PM EDT [facility] SO2, Arterial 99(H) 94 - 98 % 05/06/2024 3:46 PM EDT [facility] Base Excess, Arterial -3.0(L) -2 - 3 mmol/L 05/06/2024 3:46 PM EDT [facility] HCO3, Arterial 22.0 22 - 26 mmol/L 05/06/2024 3:46 PM EDT [facility] Total Hemoglobin, Arterial, Whole Blood 7.3(L) 11.2 - 15.7 g/dL 05/06/2024 3:46 PM EDT [facility] Hematocrit, Arterial 22.0(L) 34.0 - 45.0 % 05/06/2024 3:46 PM EDT [facility] Sodium, Arterial 138 136 - 145 mmol/L 05/06/2024 3:46 PM EDT [facility] Potassium, Arterial 6.9(HH) 3.6 - 4.9 mmol/L 05/06/2024 3:46 PM EDT [facility] Chloride, Whole Blood 112(H) 97 - 107 mmol/L 05/06/2024 3:46 PM EDT [facility] Glucose, Arterial 129(H) 74 - 99 mg/dL 05/06/2024 3:46 PM EDT [facility] Ionized Calcium, Arterial 5.2(H) 4.6 - 5.1 mg/dL 05/06/2024 3:46 PM EDT [facility] Lactate, Arterial 3.2(H) 0.5 - 1.6 mmol/L 05/06/2024 3:46 PM EDT [facility] Body Temperature 37.0 Celsius 05/06/2024 3:46 PM EDT [facility] pH, Temp Corrected, Arterial 7.37 7.35 - 7.45 05/06/2024 3:46 PM EDT [facility] pCO2, Temp Corrected, Arterial 38 35 - 48 mm Hg 05/06/2024 3:46 PM EDT [facility] pO2, Temp Corrected, Arterial 277(H) 83 - 108 mm Hg 05/06/2024 3:46 PM EDT [facility] Field Hockey Coach ID Yuri Hood 05/06/2024 3:46 PM EDT [facility] Blood, Arterial Whole blood specimen / Unknown 05/06/2024 3:45 PM EDT 05/06/2024 3:46 PM EDT us Maite Austin MD LAB POINT OF CARE TE ST DOCKED DEVICE UNSOLICITED RESULTS Final Result [facility] [address] [place] [address] * Prepare Leukocyte Reduced Platelets: 1 Units (05/06/2024 3:04 PM EDT) Product Code [id number] BLOO D BANK Dispense Status Transfused BLOOD BANK Blood Expiration Date [id number] BLOOD BANK Unit Number [id number] CH B LOOD BANK Product Blood Type 5100 BLOOD BANK Blood Type O+ BLOOD BANK Blood Venous blood specimen / Unknown Alfie Khoury MD BLOOD BANK PRODUCT ORDERAB LES Final Result [facility] [address] * (ABNORMAL) POCT arterial blood gas gem (05/06/2024 2:59 PM EDT) pH, Arterial 7.29(L) 7.35 - 7.45 05/06/2024 3:00 PM EDT [facility] pCO2, Arterial 42 35 - 48 mm Hg 05/06/2024 3:00 PM EDT [facility] pO2, Arterial 282(H) 83 - 108 mm Hg 05/06/2024 3:00 PM EDT [facility] SO2, Arterial 99(H) 94 - 98 % 05/06/2024 3:00 PM EDT [facility] Base Excess, Arterial -5.9(L) -2 - 3 mmol/L 05/06/2024 3:00 PM EDT [facility] HCO3, Arterial 20.2(L) 22 - 26 mmol/L 05/06/2024 3:00 PM EDT [facility] Total Hemoglobin, Arterial, Whole Blood 7.9(L) 11.2 - 15.7 g/dL 05/06/2024 3:00 PM EDT [facility] Hematocrit, Arterial 24.0(L) 34.0 - 45.0 % 05/06/2024 3:00 PM EDT [facility] Sodium, Arterial 141 136 - 145 mmol/L 05/06/2024 3:00 PM EDT [facility] Potassium, Arterial 6.5(HH) 3.6 - 4.9 mmol/L 05/06/2024 3:00 PM EDT [facility] Chloride, Whole Blood 113(H) 97 - 107 mmol/L 05/06/2024 3:00 PM EDT [facility] Glucose, Arterial 133(H) 74 - 99 mg/dL 05/06/2024 3:00 PM EDT [facility] Ionized Calcium, Arterial 2.9(LL) 4.6 - 5.1 mg/dL 05/06/2024 3:00 PM EDT [facility] Lactate, Arterial 2.0(H) 0.5 - 1.6 mmol/L 05/06/2024 3:00 PM EDT [facility] Body Temperature 37.0 Celsius 05/06/2024 3:00 PM EDT [facility] pH, Temp Corrected, Arterial 7.29(L) 7.35 - 7.45 05/06/2024 3:00 PM EDT [facility] pCO2, Temp Corrected, Arterial 42 35 - 48 mm Hg 05/06/2024 3:00 PM EDT [facility] pO2, Temp Corrected, Arterial 282(H) 83 - 108 mm Hg 05/06/2024 3:00 PM EDT [facility] Field Hockey Coach COLBY Sana Yuri 05/06/2024 3:00 PM EDT [facility] Blood, Arterial Whole blood specimen / Unknown 05/06/2024 2:59 PM EDT 05/06/2024 3:00 PM EDT us Maite Austin MD LAB POINT OF CARE TE ST DOCKED DEVICE UNSOLICITED RESULTS Final Result [facility] [address] [place] [address] * (ABNORMAL) POCT arterial blood gas gem (05/06/2024 2:37 PM EDT) pH, Arterial 7.32(L) 7.35 - 7.45 05/06/2024 2:38 PM EDT [facility] pCO2, Arterial 41 35 - 48 mm Hg 05/06/2024 2:38 PM EDT [facility] pO2, Arterial 201(H) 83 - 108 mm Hg 05/06/2024 2:38 PM EDT [facility] SO2, Arterial 99(H) 94 - 98 % 05/06/2024 2:38 PM EDT [facility] Base Excess, Arterial -4.7(L) -2 - 3 mmol/L 05/06/2024 2:38 PM EDT [facility] HCO3, Arterial 21.1(L) 22 - 26 mmol/L 05/06/2024 2:38 PM EDT [facility] Total Hemoglobin, Arterial, Whole Blood 9.2(L) 11.2 - 15.7 g/dL 05/06/2024 2:38 PM EDT [facility] Hematocrit, Arterial 28.0(L) 34.0 - 45.0 % 05/06/2024 2:38 PM EDT [facility] Sodium, Arterial 134(L) 136 - 145 mmol/L 05/06/2024 2:38 PM EDT [facility] Potassium, Arterial 7.8(HH) 3.6 - 4.9 mmol/L 05/06/2024 2:38 PM EDT [facility] Chloride, Whole Blood 106 97 - 107 mmol/L 05/06/2024 2:38 PM EDT [facility] Glucose, Arterial 159(H) 74 - 99 mg/dL 05/06/2024 2:38 PM EDT [facility] Ionized Calcium, Arterial 3.3(L) 4.6 - 5.1 mg/dL 05/06/2024 2:38 PM EDT [facility] Lactate, Arterial 2.2(H) 0.5 - 1.6 mmol/L 05/06/2024 2:38 PM EDT [facility] Body Temperature 37.0 Celsius 05/06/2024 2:38 PM EDT [facility] pH, Temp Corrected, Arterial 7.32(L) 7.35 - 7.45 05/06/2024 2:38 PM EDT [facility] pCO2, Temp Corrected, Arterial 41 35 - 48 mm Hg 05/06/2024 2:38 PM EDT [facility] pO2, Temp Corrected, Arterial 201(H) 83 - 108 mm Hg 05/06/2024 2:38 PM EDT [facility] Field Hockey Coach ID Yuri Hood 05/06/2024 2:38 PM T [facility] Blood, Arterial Whole blood specimen / Unknown 05/06/2024 2:37 PM EDT 05/06/2024 2:38 PM EDT us Maite Austin MD LAB POINT OF CARE TE ST DOCKED DEVICE UNSOLICITED RESULTS Final Result [facility] [address] [place] [address] * (ABNORMAL) POCT arterial blood gas gem (05/06/2024 2:11 PM EDT) pH, Arterial 7.34(L) 7.35 - 7.45 05/06/2024 2:12 PM EDT [facility] pCO2, Arterial 42 35 - 48 mm Hg 05/06/2024 2:12 PM EDT [facility] pO2, Arterial 272(H) 83 - 108 mm Hg 05/06/2024 2:12 PM EDT [facility] SO2, Arterial 100(H) 94 - 98 % 05/06/2024 2:12 PM EDT [facility] Base Excess, Arterial -2.9(L) -2 - 3 mmol/L 05/06/2024 2:12 PM EDT [facility] HCO3, Arterial 22.7 22 - 26 mmol/L 05/06/2024 2:12 PM EDT [facility] Total Hemoglobin, Arterial, Whole Blood 8.8(L) 11.2 - 15.7 g/dL 05/06/2024 2:12 PM EDT [facility] Hematocrit, Arterial 26.0(L) 34.0 - 45.0 % 05/06/2024 2:12 PM EDT [facility] Sodium, Arterial 131(L) 136 - 145 mmol/L 05/06/2024 2:12 PM EDT [facility] Potassium, Arterial 7.9(HH) 3.6 - 4.9 mmol/L 05/06/2024 2:12 PM EDT [facility] Chloride, Whole Blood 104 97 - 107 mmol/L 05/06/2024 2:12 PM EDT [facility] Glucose, Arterial 165(H) 74 - 99 mg/dL 05/06/2024 2:12 PM EDT [facility] Ionized Calcium, Arterial 3.4(L) 4.6 - 5.1 mg/dL 05/06/2024 2:12 PM EDT [facility] Lactate, Arterial 2.3(H) 0.5 - 1.6 mmol/L 05/06/2024 2:12 PM EDT [facility] Body Temperature 37.0 Celsius 05/06/2024 2:12 PM EDT [facility] pH, Temp Corrected, Arterial 7.34(L) 7.35 - 7.45 05/06/2024 2:12 PM EDT [facility] pCO2, Temp Corrected, Arterial 42 35 - 48 mm Hg 05/06/2024 2:12 PM EDT [facility] pO2, Temp Corrected, Arterial 272(H) 83 - 108 mm Hg 05/06/2024 2:12 PM EDT [facility] Field Hockey Coach ID Yuri Hood 05/06/2024 2:12 PM EDT [facility] Blood, Arterial Whole blood specimen / Unknown 05/06/2024 2:11 PM EDT 05/06/2024 2:12 PM EDT us Maite Austin MD LAB POINT OF CARE TE ST DOCKED DEVICE UNSOLICITED RESULTS Final Result Performing Organization Address City/State/[facility] Co de Phone Number [facility] [address] [place] [address] * (ABNORMAL) POCT arterial blood gas gem (05/06/2024 1:33 PM EDT) pH, Arterial 7.31(L) 7.35 - 7.45 05/06/2024 1:34 PM EDT [facility] pCO2, Arterial 46 35 - 48 mm Hg 05/06/2024 1:34 PM EDT [facility] pO2, Arterial 332(H) 83 - 108 mm Hg 05/06/2024 1:34 PM EDT [facility] SO2, Arterial 100(H) 94 - 98 % 05/06/2024 1:34 PM EDT [facility] Base Excess, Arterial -2.9(L) -2 - 3 mmol/L 05/06/2024 1:34 PM EDT [facility] HCO3, Arterial 23.2 22 - 26 mmol/L 05/06/2024 1:34 PM EDT [facility] Total Hemoglobin, Arterial, Whole Blood 6.8(L) 11.2 - 15.7 g/dL 05/06/2024 1:34 PM EDT [facility] Hematocrit, Arterial 20.0(L) 34.0 - 45.0 % 05/06/2024 1:34 PM EDT [facility] Sodium, Arterial 133(L) 136 - 145 mmol/L 05/06/2024 1:34 PM EDT [facility] Potassium, Arterial 6.8(HH) 3.6 - 4.9 mmol/L 05/06/2024 1:34 PM EDT [facility] Chloride, Whole Blood 104 97 - 107 mmol/L 05/06/2024 1:34 PM EDT [facility] Glucose, Arterial 129(H) 74 - 99 mg/dL 05/06/2024 1:34 PM EDT [facility] Ionized Calcium, Arterial 3.5(L) 4.6 - 5.1 mg/dL 05/06/2024 1:34 PM EDT [facility] Lactate, Arterial 2.1(H) 0.5 - 1.6 mmol/L 05/06/2024 1:34 PM EDT [facility] Body Temperature 37.0 Celsius 05/06/2024 1:34 PM EDT [facility] pH, Temp Corrected, Arterial 7.31(L) 7.35 - 7.45 05/06/2024 1:34 PM EDT [facility] pCO2, Temp Corrected, Arterial 46 35 - 48 mm Hg 05/06/2024 1:34 PM EDT [facility] pO2, Temp Corrected, Arterial 332(H) 83 - 108 mm Hg 05/06/2024 1:34 PM EDT [facility] Field Hockey Coach ID Yuri Hood 05/06/2024 1:34 PM EDT [facility] Blood, Arterial Whole blood specimen / Unknown 05/06/2024 1:33 PM EDT 05/06/2024 1:34 PM EDT us Maite Austin MD LAB POINT OF CARE TE ST DOCKED DEVICE UNSOLICITED RESULTS Final Result [facility] [address] [place] [id number] * (ABNORMAL) POCT arterial blood gas gem (05/06/2024 1:05 PM EDT) pH, Arterial 7.35 7.35 - 7.45 05/07/2024 7:58 AM [facility] pCO2, Arterial 45 35 - 48 mm Hg 05/07/2024 7:58 AM [facility] pO2, Arterial 289(H) 83 - 108 mm Hg 05/07/2024 7:58 AM [facility] SO2, Arterial 99(H) 94 - 98 % 05/07/2024 7:58 AM [facility] Base Excess, Arterial -1.1 -2 - 3 mmol/L 05/07/2024 7:58 AM [facility] HCO3, Arterial 24.8 22 - 26 mmol/L 05/07/2024 7:58 AM [facility] Total Hemoglobin, Arterial, Whole Blood <6.0(LL) 11.2 - 15.7 g/dL 05/07/2024 7:58 AM [facility] Sodium, Arterial 134(L) 136 - 145 mmol/L 05/07/2024 7:58 AM [facility] Potassium, Arterial 5.9(H) 3.6 - 4.9 mmol/L 05/07/2024 7:58 AM [facility] Chloride, Whole Blood 102 97 - 107 mmol/L 05/07/2024 7:58 AM [facility] Glucose, Arterial 96 74 - 99 mg/dL 05/07/2024 7:58 AM [facility] Ionized Calcium, Arterial 3.5(L) 4.6 - 5.1 mg/dL 05/07/2024 7:58 AM [facility] Lactate, Arterial 1.6 0.5 - 1.6 mmol/L 05/07/2024 7:58 AM [facility] Body Temperature 37.0 Celsius 05/07/2024 7:58 AM [facility] pH, Temp Corrected, Arterial 7.35 7.35 - 7.45 05/07/2024 7:58 AM [facility] pCO2, Temp Corrected, Arterial 45 35 - 48 mm Hg 05/07/2024 7:58 AM [facility] pO2, Temp Corrected, Arterial 289(H) 83 - 108 mm Hg 05/07/2024 7:58 AM [facility] Field Hockey Coach ID Alfie Turner 05/07/2024 7:58 AM [facility] Blood, Arterial Whole blood specimen / Unknown 05/06/2024 1:05 PM EDT 05/07/2024 7:58 AM EDT us Maite Austin MD LAB POINT OF CARE TE ST DOCKED DEVICE UNSOLICITED RESULTS Final Result [facility] [address] [place] [address] * (ABNORMAL) POCT arterial blood gas gem (05/06/2024 11:25 AM EDT) pH, Arterial 7.23(LL) 7.35 - 7.45 05/06/2024 11:30 AM EDT [facility] pCO2, Arterial 64(HH) 35 - 48 mm Hg 05/06/2024 11:30 AM EDT [facility] pO2, Arterial 119(H) 83 - 108 mm Hg 05/06/2024 11:30 AM EDT [facility] SO2, Arterial 100(H) 94 - 98 % 05/06/2024 11:30 AM EDT [facility] Base Excess, Arterial -1.8 -2 - 3 mmol/L 05/06/2024 11:30 AM EDT [facility] HCO3, Arterial 26.8(H) 22 - 26 mmol/L 05/06/2024 11:30 AM EDT [facility] Total Hemoglobin, Arterial, Whole Blood 11.9 11.2 - 15.7 g/dL 05/06/2024 11:30 AM EDT [facility] Hematocrit, Arterial 36.0 34.0 - 45.0 % 05/06/2024 11:30 AM EDT [facility] Sodium, Arterial 136 136 - 145 mmol/L 05/06/2024 11:30 AM EDT [facility] Potassium, Arterial 3.8 3.6 - 4.9 mmol/L 05/06/2024 11:30 AM EDT [facility] Chloride, Whole Blood 103 97 - 107 mmol/L 05/06/2024 11:30 AM EDT [facility] Glucose, Arterial 136(H) 74 - 99 mg/dL 05/06/2024 11:30 AM EDT [facility] Ionized Calcium, Arterial 4.8 4.6 - 5.1 mg/dL 05/06/2024 11:30 AM [facility] Lactate, Arterial 1.0 0.5 - 1.6 mmol/L 05/06/2024 11:30 AM [facility]T [facility] Body Temperature 37.0 Celsius 05/06/2024 11:30 AM EDT [facility] pH, Temp Corrected, Arterial 7.23(LL) 7.35 - 7.45 05/06/2024 11:30 AM EDT [facility] pCO2, Temp Corrected, Arterial 64(HH) 35 - 48 mm Hg 05/06/2024 11:30 AM EDT [facility] pO2, Temp Corrected, Arterial 119(H) 83 - 108 mm Hg 05/06/2024 11:30 AM EDT [facility] Field Hockey Coach ID Jake Angeles 05/06/2024 11:30 AM EDT [facility] Blood, Arterial Whole blood specimen / Unknown 05/06/2024 11:25 AM EDT 05/06/2024 11:30 AM EDT Erum Bahena MD LAB POINT OF CARE TEST DOCKED DEVICE UNSOLICITED RESULTS Final Result [facility] [address] [place], [place] [id number] * (ABNORMAL) QPLUS (05/06/2024 10:36 AM EDT) Clot Time 161 104 - 166 Seconds 05/06/2024 10:49 AM [facility] Clot Time Ratio 1.2 0.8 - 1.2 10:49 AM [facility]T [facility] Comment:The Clot Time Ratio (CTR) is a calculated parameter. CTR values of 0.8 1.2 are demonstrated to be typical of n ormal patient samples. Samples with CTR values > 1.4 are indicative of prolongation of the intrinsic pathway clotting time, likely due to the influence of unfractionated heparin. POCT Clot Stiffness 36.4(H) 13.0 - 33.2 hectoPascals 05/06/2024 10:49 AM [facility] Platelet Contribution to Clot Stiffnes 31.9(H) 11.9 - 29.8 hectoPascals 05/06/2024 10:49 AM EDT [facility] Fibrinogen Contribution to Clot Stiffness 4.5(H) 1.0 - 3.7 hectoPascals 05/06/2024 10:49 AM EDT [facility] Heparinase Clot Time 134 103 - 153 Seconds 05/06/2024 10:49 AM EDT [facility] Field Hockey Coach ID Alfie Mueller 05/06/2024 10:49 AM EDT [facility] Device ID [id number] 05/06/2024 10:49 AM EDT [facility] Whole Blood 05/06/2024 10:3 6 AM EDT 05/06/2024 10:49 AM EDT Erum Bahena MD LAB POINT OF CARE TEST DOCKED DEVICE UNSOLICITED RESULTS Final Result [facility] [address] [place] [address] * (ABNORMAL) POCT arterial blood gas gem (05/06/2024 9:31 AM EDT) pH, Arterial 7.36 7.35 - 7.45 05/06/2024 9:36 AM EDT [facility] pCO2, Arterial 47 35 - 48 mm Hg 05/06/2024 9:36 AM EDT [facility] pO2, Arterial 250(H) 83 - 108 mm Hg 05/06/2024 9:36 AM EDT [facility] SO2, Arterial 100(H) 94 - 98 % 05/06/2024 9:36 AM EDT [facility] Base Excess, Arterial 0.7 -2 - 3 mmol/L 05/06/2024 9:36 AM EDT [facility] HCO3, Arterial 26.6(H) 22 - 26 mmol/L 05/06/2024 9:36 AM EDT [facility] Total Hemoglobin, Arterial, Whole Blood 12.2 11.2 - 15.7 g/dL 05/06/2024 9:36 AM EDT [facility] Hematocrit, Arterial 37.0 34.0 - 45.0 % 05/06/2024 9:36 AM EDT [facility] Sodium, Arterial 136 136 - 145 mmol/L 05/06/2024 9:36 AM EDT [facility] Potassium, Arterial 4.0 3.6 - 4.9 mmol/L 05/06/2024 9:36 AM EDT [facility] Chloride, Whole Blood 103 97 - 107 mmol/L 05/06/2024 9:36 AM EDT [facility] Glucose, Arterial 94 74 - 99 mg/dL 05/06/2024 9:36 AM EDT [facility] Ionized Calcium, Arterial 4.8 4.6 - 5.1 mg/dL 05/06/2024 9:36 AM EDT [facility] Lactate, Arterial 1.4 0.5 - 1.6 mmol/L 05/06/2024 9:36 AM EDT [facility] Body Temperature 37.0 Celsius 05/06/2024 9:36 AM EDT [facility] pH, Temp Corrected, Arterial 7.36 7.35 - 7.45 05/06/2024 9:36 AM EDT [facility] pCO2, Temp Corrected, Arterial 47 35 - 48 mm Hg 05/06/2024 9:36 AM EDT [facility] LAB pO2, Temp Corrected, Arterial 250(H) 83 - 108 mm Hg 05/06/2024 9:36 AM EDT [facility] Field Hockey Coach ID Alfie Turner 05/06/2024 9:36 AM EDT [facility] Blood, Arterial Whole blood specimen / Unknown 05/06/2024 9:31 AM EDT 05/06/2024 9:36 AM EDT Erum Bahena MD LAB POINT OF CARE TEST DOCKED DEVICE UNSOLICITED RESULTS Final Result [facility] [address] [place] [address] * Prepare Leukocyte Reduced RBC: 4 Units (05/06/2024 9:04 AM EDT) Product Code [id number] CH BLOO D BANK Dispense Status Transfused BLOOD BANK Blood Expiration Date [id number] BLOOD BANK Unit Number [id number] CH B LOOD BANK Product Blood Type 7300 BLOOD BANK Blood Type B+ BLOOD BANK Crossmatch Compatible BLOOD BANK Product Code [id number] BLOO D BANK Dispense Status Transfused CH BLOOD BANK Blood Expiration Date [id number] BLOOD BANK Unit Number [id number] CH B LOOD BANK Product Blood Type 7300 CH BLOOD BANK Blood Type B+ CH BLOOD BANK Crossmatch Compatible CH BLOOD BANK Product Code [id number] CH BLOO D BANK Dispense Status Transfused CH BLOOD BANK Blood Expiration Date [id number] CH BLOOD BANK Unit Number [id number] CH B LOOD BANK Product Blood Type 7300 CH BLOOD BANK Blood Type B+ CH BLOOD BANK Crossmatch Compatible CH BLOOD BANK Product Code [id number] CH BLOO D BANK Dispense Status Transfused CH BLOOD BANK Blood Expiration Date [id number] BLOOD BANK Unit Number [id number] CH B LOOD BANK Product Blood Type 7300 CH BLOOD BANK Blood Type B+ CH BLOOD BANK Crossmatch Compatible CH BLOOD BANK Other us Shola Sheridan APRN BLOOD BANK PRODUCT ORDERABLE S Final Result Performing Organization Address City/[facility]/ZIP Co de Phone Number BLOOD BANK [address] [place] [address], * Light Green Top (05/06/2024 12:07 AM EDT) Extra Hold for add-ons 05/06/2024 3:01 AM EDT [facility] Comment:Auto resulted. Blood Venous blood specimen / Unknown 05/06/2024 12:07 AM EDT 05/06/2024 12:26 AM EDT Erum Bahena MD LAB BLOOD ORDERABLES Namrata l Result [facility] [address] [place] [address] * Anti Xa Level by Unfractionated Heparin - Heparin Drip Titration (05/06/2024 12:07 AM EDT) Anti Xa Level Unfractionated Heparin 0.36 <1.00 IU/mL LAB COAGULATION METHOD 05/06/2024 12:51 AM EDT [facility] Blood Venous blood specimen / Unknown Venipuncture / Unknown 05/06/2024 12:07 AM EDT 05/06/2024 12:26 AM EDT Narrative [facility] - 05/06/2024 12:51 AM EDT Therapeutic Range: UFH Full Dose and ACS/MS protocols*: 0.30 - 0.70 IU/mL UFH Low Dose protocol*: 0.25 - 0.50 IU/mL UFH prophylaxis: Not established Marylu Carvajal [employer]OMOTIVE PORTER, DNP LAB BLOOD ORDERABLES Final Result [facility] [address] [place] [address] * (ABNORMAL) CBC W/O differential - Hit surveillance (05/06/2024 12:07 AM EDT) WBC Count 15.16(H) 3.70 - 10.30 10*3/uL LAB HEMATOLOGY METHOD 05/06/2024 12:36 AM EDT [facility] RBC Count 3.96 3.90 - 5.20 10*6/uL LAB HEMATOLOGY METHOD 05/06/2024 12:36 AM EDT [facility] HGB 12.1 11.2 - 15.7 g/dL LAB HEMATOLOGY METHOD 05/06/2024 12:36 AM EDT [facility] HCT 34.5 34.0 - 45.0 % LAB HEMATOLOGY METHOD 05/06/2024 12:36 AM EDT [facility] Platelet Count 390(H) 155 - 369 10*3/uL LAB HEMATOLOGY METHOD 05/06/2024 12:36 AM EDT [facility] MCV 87 79 - 98 fL LAB HEMATOLOGY METHOD 05/06/2024 12:36 AM EDT [facility] MCH 30.6 26.0 - 32.0 pg LAB HEMATOLOGY METHOD 05/06/2024 12:36 AM EDT [facility] MCHC 35.1 30.7 - 35.5 g/dL LAB HEMATOLOGY METHOD 05/06/2024 12:36 AM EDT [facility] RDW 13.2 11.5 - 14.5 % LAB HEMATOLOGY METHOD 05/06/2024 12:36 AM EDT [facility] MPV 10.3 8.8 - 12.5 fL LAB HEMATOLOGY METHOD 05/06/2024 12:36 AM EDT [facility] nRBC 0.0 <=0.0 per 100 WBCs LAB HEMATOLOGY METHOD 05/06/2024 12:36 AM EDT [facility] Blood Venous blood specimen / Unknown Venipuncture / Unknown 05/06/2024 12:07 AM EDT 05/06/2024 12:25 AM EDT Marylu Carvajal [employer]OMOTIVE PORTER, DNP LAB BLOOD ORDERABLES Final Result [facility] [address] [place] [address] * (ABNORMAL) P2Y12 Platelet Receptor Blockade, Verify Now PRU (05/06/2024 12:07 AM EDT) P2Y12 PRU 134(L) 194 - 418 PRU 05/06/2024 12:32 AM EDT [facility] Blood Venous blood specimen / Unknown Venipuncture / Unknown 05/06/2024 12:07 AM EDT 05/06/2024 12:23 AM EDT Narrative [facility] - 05/06/2024 12:32 AM EDT P2Y12 Result Interpretation: P2Y12 values < 194 PRU (low end of reference range) are specific evidence of a P2Y12 inhibitor effect. Test results are in P2Y12 reaction units (PRU). This measures the extent of platelet aggregation in the presence of P2Y12 inhibitor drugs such as clopidogrel (Plavix), prasugrel (Effient), ticagrelor (Brilinta), and ticlopidine (Ticlid). Patients who have been treated with Glycoprotein IIb/IIIa inhibitors should not be tested until platelet function has recovered. This time period is approximately 14 days after discontinuation of abciximab (ReoPro) and up to 48 hours after discontinuation of eptifibatide (Integrilin) and tirofiban (Aggrastat). Result may not be valid for platelet counts < 120 k/uL. The P2Y12 test results should be interpreted in conjunction with other clinical and laboratory data available to the clinician. Testing performed in the [facility]. Trinity Yousif APRN LAB BLOOD ORDERABLES Final Res ult Performing Organization Address City/[facility]/ZIP Co de Phone Number [facility] [address] [place] [address] * Type and Screen (05/05/2024 4:16 PM EDT) ABO/Rh B Positive 05/05/2024 3:59 PM EDT [facility] Antibody Screen Negative 05/05/2024 3:59 PM EDT [facility] Specimen Expiration 05/08/2024 23:59 05/05/2024 3:59 PM EDT [facility] Blood Venous blood specimen / Unknown Venipuncture / Unknown 05/05/2024 4:16 PM EDT 05/05/2024 4:33 PM EDT Trinity Yousif APRN LAB BLOOD BANK TEST ORDERABLES Final Result Performing Organization Address [facility] de Phone Number BLOOD BANK [address] [place] [address] * Anti Xa Level by Unfractionated Heparin - Heparin Drip Titration (05/05/2024 6:19 AM EDT) Anti Xa Level Unfractionated Heparin 0.39 <1.00 IU/mL LAB COAGULATION METHOD 05/05/2024 7:07 AM EDT [facility] Blood Venous blood specimen / Unknown Venipuncture / Unknown 05/05/2024 6:19 AM EDT 05/05/2024 6:32 AM EDT Narrative [facility] - 05/05/2024 7:07 AM EDT Therapeutic Range: UFH Full Dose and ACS/MS protocols*: 0.30 - 0.70 IU/mL UFH Low Dose protocol*: 0.25 - 0.50 IU/mL UFH prophylaxis: Not established Marylu Carvajal APRN, DNP LAB BLOOD ORDERABLES Final Result Performing Organization Address City/[facility]/ZIP Co de Phone Number [facility] [address] [place] [address] * (ABNORMAL) CBC W/O differential - Hit surveillance (05/05/2024 12:32 AM EDT) WBC Count 13.31(H) 3.70 - 10.30 10*3/uL LAB HEMATOLOGY METHOD 05/05/2024 12:56 AM EDT [facility] RBC Count 3.98 3.90 - 5.20 10*6/uL LAB HEMATOLOGY METHOD 05/05/2024 12:56 AM EDT [facility] HGB 12.2 11.2 - 15.7 g/dL LAB HEMATOLOGY METHOD 05/05/2024 12:56 AM EDT [facility] HCT 35.1 34.0 - 45.0 % LAB HEMATOLOGY METHOD 05/05/2024 12:56 AM EDT [facility] Platelet Count 378(H) 155 - 369 10*3/uL LAB HEMATOLOGY METHOD 05/05/2024 12:56 AM EDT [facility] MCV 88 79 - 98 fL LAB HEMATOLOGY METHOD 05/05/2024 12:56 AM EDT [facility] MCH 30.7 26.0 - 32.0 pg LAB HEMATOLOGY METHOD 05/05/2024 12:56 AM EDT [facility] MCHC 34.8 30.7 - 35.5 g/dL LAB HEMATOLOGY METHOD 05/05/2024 12:56 AM EDT [facility] RDW 13.2 11.5 - 14.5 % LAB HEMATOLOGY METHOD 05/05/2024 12:56 AM EDT [facility] MPV 10.1 8.8 - 12.5 fL LAB HEMATOLOGY METHOD 05/05/2024 12:56 AM EDT [facility] nRBC 0.0 <=0.0 per 100 WBCs LAB HEMATOLOGY METHOD 05/05/2024 12:56 AM EDT [facility] Blood Venous blood specimen / Unknown Venipuncture / Unknown 05/05/2024 12:32 AM EDT 05/05/2024 12:40 AM EDT Marylu Carvajal [employer]OMOT[employer] PORTER, DNP LAB BLOOD ORDERABLES Final Result [facility] [address] [place] [address] * (ABNORMAL) P2Y12 Platelet Receptor Blockade, Verify Now PRU (05/05/2024 12:32 AM EDT) P2Y12 PRU 132(L) 194 - 418 PRU 05/05/2024 12:56 AM EDT [facility] Blood Venous blood specimen / Unknown Venipuncture / Unknown 05/05/2024 12:32 AM EDT 05/05/2024 12:41 AM EDT Narrative [facility] - 05/05/2024 12:56 AM EDT P2Y12 Result Interpretation: P2Y12 values < 194 PRU (low end of reference range) are specific evidence of a P2Y12 inhibitor effect. Test results are in P2Y12 reaction units (PRU). This measures the extent of platelet aggregation in the presence of P2Y12 inhibitor drugs such as clopidogrel (Plavix), prasugrel (Effient), ticagrelor (Brilinta), and ticlopidine (Ticlid). Patients who have been treated with Glycoprotein IIb/IIIa inhibitors should not be tested until platelet function has recovered. This time period is approximately 14 days after discontinuation of abciximab (ReoPro) and up to 48 hours after discontinuation of eptifibatide (Integrilin) and tirofiban (Aggrastat). Result may not be valid for platelet counts < 120 k/uL. The P2Y12 test results should be interpreted in conjunction with other clinical and laboratory data available to the clinician. Testing performed in the [facility]. Trinity Yousif APRN LAB BLOOD ORDERABLES Final Res ult [facility] [address] [place] [address] * Magnesium (05/05/2024 12:32 AM EDT) Pathologist [facility] Magnesium, Plasma 1.9 1.9 - 2.4 mg/dL 05/05/2024 1:14 AM EDT [facility] Blood Venous blood specimen / Unknown Venipuncture / Unknown 05/05/2024 12:32 AM EDT 05/05/2024 12:40 AM EDT us Trinity Yousif AUTOMOTIVE PORTER LAB BLOOD ORDERABLES Final Res ult [facility] [address] [place] [address] * (ABNORMAL) Comprehensive metabolic panel (05/05/2024 12:32 AM EDT) Glucose, Plasma 147(H) 74 - 99 mg/dL 05/05/2024 1:14 AM EDT [facility] BUN, Plasma 11 7 - 21 mg/dL 05/05/2024 1:14 AM EDT [facility] Creatinine, Plasma 0.84 0.60 - 1.10 mg/dL 05/05/2024 1:14 AM EDT [facility] BUN/Creatinine Ratio 13 05/05/2024 1:14 AM EDT [facility] Sodium, Plasma 136 136 - 145 mmol/L 05/05/2024 1:14 AM EDT [facility] Potassium, Plasma 3.9 3.6 - 4.9 mmol/L 05/05/2024 1:14 AM EDT [facility] Chloride, Plasma 103 97 - 107 mmol/L 05/05/2024 1:14 AM EDT [facility] CO2, Plasma 20(L) 22 - 29 mmol/L 05/05/2024 1:14 AM EDT [facility] Anion Gap 13 6 - 16 mmol/L 05/05/2024 1:14 AM EDT [facility] Total Calcium, Plasma 8.6(L) 8.9 - 10.2 mg/dL 05/05/2024 1:14 AM EDT [facility] Total Protein 6.5 6.3 - 7.9 g/dL 05/05/2024 1:14 AM EDT [facility] Albumin, Plasma 3.7 3.5 - 5.2 g/dL 05/05/2024 1:14 AM EDT [facility] AST, Plasma 36(H) 10 - 35 U/L 05/05/2024 1:14 AM EDT [facility] Comment:Hemolyzed, result ma y be falsely increased. ALT, Plasma 28 10 - 35 U/L 05/05/2024 1:14 AM EDT [facility] Alkaline Phosphatase, Plasma 142(H) 35 - 104 U/L 05/05/2024 1:14 AM EDT [facility] Total Bilirubin, Plasma <0.2(L) 0.2 - 1.1 mg/dL 05/05/2024 1:14 AM EDT [facility] eGFRcr 82.7 mL/min/1.7 3m*2 05/05/2024 1:14 AM EDT [facility] Comment:Reported eGFRcr in m L/min/1.73m2 is based the CKD-EPI 2020 equation that does not use a race coefficient. Blood Venous blood specimen / Unknown Venipuncture / Unknown 05/05/2024 12:32 AM EDT 05/05/2024 12:40 AM EDT Trinity Yousif APRN LAB BLOOD ORDERABLES Final Res ult Performing Organization Address City/[facility] Co de Phone Number [facility] [address] [place] [address] * Anti Xa Level by Unfractionated Heparin - Heparin Drip Titration (05/05/2024 12:32 AM EDT) Anti Xa Level Unfractionated Heparin 0.32 <1.00 IU/mL LAB COAGULATION METHOD 05/05/2024 1:04 AM EDT [facility] Blood Venous blood specimen / Unknown Venipuncture / Unknown 05/05/2024 12:32 AM EDT 05/05/2024 12:40 AM EDT Narrative [facility] - 05/05/2024 1:04 AM EDT Therapeutic Range: UFH Full Dose and ACS/MS protocols*: 0.30 - 0.70 IU/mL UFH Low Dose protocol*: 0.25 - 0.50 IU/mL UFH prophylaxis: Not established Marylu Carvajal APRN, DNP LAB BLOOD ORDERABLES Final Result Performing Organization Address City/[facility]/ZIP Co de Phone Number [facility] [address] [place] [address] * Anti Xa Level by Unfractionated Heparin - Heparin Drip Titration (05/04/2024 4:05 PM EDT) Anti Xa Level Unfractionated Heparin 0.23 <1.00 IU/mL LAB COAGULATION METHOD 05/04/2024 4:47 PM EDT [facility] Blood Venous blood specimen / Unknown Venipuncture / Unknown 05/04/2024 4:05 PM EDT 05/04/2024 4:15 PM EDT Narrative [facility] - 05/04/2024 4:47 PM EDT Therapeutic Range: UFH Full Dose and ACS/MS protocols*: 0.30 - 0.70 IU/mL UFH Low Dose protocol*: 0.25 - 0.50 IU/mL UFH prophylaxis: Not established Marylu Carvajal APRN, JORGE LAB BLOOD ORDERABLES Final Result [facility] [address] [place] [address] * (ABNORMAL) P2Y12 Platelet Receptor Blockade, Verify Now PRU (05/04/2024 9:36 AM EDT) P2Y12 PRU 78(L) 194 - 418 PRU 05/04/2024 10:04 AM EDT [facility] Blood Venous blood specimen / Unknown Venipuncture / Unknown 05/04/2024 9:36 AM EDT 05/04/2024 9:46 AM EDT Narrative [facility] - 05/04/2024 10:04 AM EDT P2Y12 Result Interpretation: P2Y12 values < 194 PRU (low end of reference range) are specific evidence of a P2Y12 inhibitor effect. Test results are in P2Y12 reaction units (PRU). This measures the extent of platelet aggregation in the presence of P2Y12 inhibitor drugs such as clopidogrel (Plavix), prasugrel (Effient), ticagrelor (Brilinta), and ticlopidine (Ticlid). Patients who have been treated with Glycoprotein IIb/IIIa inhibitors should not be tested until platelet function has recovered. This time period is approximately 14 days after discontinuation of abciximab (ReoPro) and up to 48 hours after discontinuation of eptifibatide (Integrilin) and tirofiban (Aggrastat). Result may not be valid for platelet counts < 120 k/uL. The P2Y12 test results should be interpreted in conjunction with other clinical and laboratory data available to the clinician. Testing performed in the [facility]. Trinity Yousif APRN LAB BLOOD ORDERABLES Final Res ult Performing Organization Address [facility]/ZIP Co de Phone Number [facility] [address] [place] [address] * Anti Xa Level by Unfractionated Heparin - Heparin Drip Titration (05/04/2024 9:36 AM EDT) Anti Xa Level Unfractionated Heparin <0.11 <1.00 IU/mL LAB COAGULATION METHOD 05/04/2024 10:13 AM EDT [facility] Blood Venous blood specimen / Unknown Venipuncture / Unknown 05/04/2024 9:36 AM EDT 05/04/2024 9:47 AM EDT Narrative [facility] - 05/04/2024 10:13 AM EDT Therapeutic Range: UFH Full Dose and ACS/MS protocols*: 0.30 - 0.70 IU/mL UFH Low Dose protocol*: 0.25 - 0.50 IU/mL UFH prophylaxis: Not established Marylu Carvajal APRN, JORGE LAB BLOOD ORDERABLES Final Result Performing Organization Address [facility]/ZIP Co de Phone Number [facility] [address] [place] [address] * (ABNORMAL) POCT glucose meter (05/04/2024 5:13 AM EDT) POCT Glucose 114(H) 74 - 99 mg/dL 05/04/2024 5:15 AM EDT [facility] Comment:Accuracy of a glucos e result obtained from a capillary whole blood specimen relies upon adequate, non-compromised capillary blood flow. If the capillary glucose result is not consistent with the patient's clinical signs and symptoms, glucose testing should be repeated with either an arterial or venous sample on the glucometer or sent to the main labortory for testing. Comment 05/04/2024 5:15 AM EDT [facility] Field Hockey Coach ID Daisy Toth 05/04/2024 5:15 AM EDT [facility] Device ID [id number] 05/04/2024 5:15 AM EDT [facility] Specimen Type POC Capillary 05/04/2024 5:15 AM EDT [facility] Blood Capillary blood specimen / Unknown 05/04/2024 5:13 AM EDT 05/04/2024 5:15 AM EDT Erum Bahena MD LAB POINT OF CARE TEST DOCKED DEVICE UNSOLICITED RESULTS Final Result Performing Organization Address [facility] Co de Phone Number [facility] [address] [place] [address] * Anti Xa Level by Unfractionated Heparin - Heparin Drip Titration (05/04/2024 2:50 AM EDT) Anti Xa Level Unfractionated Heparin 0.32 <1.00 IU/mL LAB COAGULATION METHOD 05/04/2024 3:16 AM EDT [facility] Blood Venous blood specimen / Unknown Venipuncture / Unknown 05/04/2024 2:50 AM EDT 05/04/2024 2:56 AM EDT Narrative [facility] - 05/04/2024 3:16 AM EDT Therapeutic Range: UFH Full Dose and ACS/MS protocols*: 0.30 - 0.70 IU/mL UFH Low Dose protocol*: 0.25 - 0.50 IU/mL UFH prophylaxis: Not established Mraylu Carvajal APRN, DNP LAB BLOOD ORDERABLES Final Result [facility] [address] [place] [address] * (ABNORMAL) CBC W/O differential - Hit surveillance (05/04/2024 2:50 AM EDT) WBC Count 12.80(H) 3.70 - 10.30 10*3/uL LAB HEMATOLOGY METHOD 05/04/2024 3:27 AM EDT [facility] RBC Count 3.92 3.90 - 5.20 10*6/uL LAB HEMATOLOGY METHOD 05/04/2024 3:27 AM EDT [facility] HGB 11.8 11.2 - 15.7 g/dL LAB HEMATOLOGY METHOD 05/04/2024 3:27 AM EDT [facility] HCT 34.8 34.0 - 45.0 % LAB HEMATOLOGY METHOD 05/04/2024 3:27 AM EDT [facility] Platelet Count 372(H) 155 - 369 10*3/uL LAB HEMATOLOGY METHOD 05/04/2024 3:27 AM EDT [facility] MCV 89 79 - 98 fL LAB HEMATOLOGY METHOD 05/04/2024 3:27 AM EDT [facility] MCH 30.1 26.0 - 32.0 pg LAB HEMATOLOGY METHOD 05/04/2024 3:27 AM EDT [facility] MCHC 33.9 30.7 - 35.5 g/dL LAB HEMATOLOGY METHOD 05/04/2024 3:27 AM EDT [facility] RDW 13.3 11.5 - 14.5 % LAB HEMATOLOGY METHOD 05/04/2024 3:27 AM EDT [facility] MPV 10.1 8.8 - 12.5 fL LAB HEMATOLOGY METHOD 05/04/2024 3:27 AM EDT [facility] nRBC 0.0 <=0.0 per 100 WBCs LAB HEMATOLOGY METHOD 05/04/2024 3:27 AM EDT [facility] Blood Venous blood specimen / Unknown Venipuncture / Unknown 05/04/2024 2:50 AM EDT 05/04/2024 2:56 AM EDT Marylu Carvajal APRN, DNP LAB BLOOD ORDERABLES Final Result [facility] [address] [place] [address] * (ABNORMAL) P2Y12 Platelet Receptor Blockade, Verify Now PRU (05/04/2024 2:50 AM EDT) P2Y12 PRU 100(L) 194 - 418 PRU 05/04/2024 3:15 AM EDT [facility] Blood Venous blood specimen / Unknown Venipuncture / Unknown 05/04/2024 2:50 AM EDT 05/04/2024 3:02 AM EDT Narrative [facility] - 05/04/2024 3:15 AM EDT P2Y12 Result Interpretation: P2Y12 values < 194 PRU (low end of reference range) are specific evidence of a P2Y12 inhibitor effect. Test results are in P2Y12 reaction units (PRU). This measures the extent of platelet aggregation in the presence of P2Y12 inhibitor drugs such as clopidogrel (Plavix), prasugrel (Effient), ticagrelor (Brilinta), and ticlopidine (Ticlid). Patients who have been treated with Glycoprotein IIb/IIIa inhibitors should not be tested until platelet function has recovered. This time period is approximately 14 days after discontinuation of abciximab (ReoPro) and up to 48 hours after discontinuation of eptifibatide (Integrilin) and tirofiban (Aggrastat). Result may not be valid for platelet counts < 120 k/uL. The P2Y12 test results should be interpreted in conjunction with other clinical and laboratory data available to the clinician. Testing performed in the [facility]. Shola Sheridan APRN LAB BLOOD ORDERABLES Final R esult Performing Organization Address City/State/[facility] de Phone Number [facility] [address] [place] [address] * Magnesium, Plasma (05/04/2024 2:50 AM EDT) Magnesium, Plasma 2.0 1.9 - 2.4 mg/dL 05/04/2024 3:24 AM EDT [facility] Blood Venous blood specimen / Unknown Venipuncture / Unknown 05/04/2024 2:50 AM EDT 05/04/2024 2:56 AM EDT Marylu Carvajal [employer]OMOTIVE PORTER, DNP LAB BLOOD ORDERABLES Final Result [facility] [address] [place] [address] * (ABNORMAL) Basic metabolic panel (05/04/2024 2:50 AM EDT) Glucose, Plasma 109(H) 74 - 99 mg/dL 05/04/2024 3:24 AM EDT [facility] BUN, Plasma 12 7 - 21 mg/dL 05/04/2024 3:24 AM EDT [facility] Creatinine, Plasma 0.94 0.60 - 1.10 mg/dL 05/04/2024 3:24 AM EDT [facility] BUN/Creatinine Ratio 13 05/04/2024 3:24 AM EDT [facility] Sodium, Plasma 139 136 - 145 mmol/L 05/04/2024 3:24 AM EDT [facility] Potassium, Plasma 3.5(L) 3.6 - 4.9 mmol/L 05/04/2024 3:24 AM EDT [facility] Chloride, Plasma 104 97 - 107 mmol/L 05/04/2024 3:24 AM EDT [facility] CO2, Plasma 25 22 - 29 mmol/L 05/04/2024 3:24 AM EDT [facility] Anion Gap 10 6 - 16 mmol/L 05/04/2024 3:24 AM EDT [facility] Total Calcium, Plasma 8.4(L) 8.9 - 10.2 mg/dL 05/04/2024 3:24 AM EDT [facility] eGFRcr 72.3 mL/min/1.7 3m*2 05/04/2024 3:24 AM EDT [facility] Comment:Reported eGFRcr in m L/min/1.73m2 is based the CKD-EPI 2020 equation that does not use a race coefficient. Blood Venous blood specimen / Unknown Venipuncture / Unknown 05/04/2024 2:50 AM EDT 05/04/2024 2:56 AM EDT Marylu Carvajal AUTOMOTIVE PORTER, DNP LAB BLOOD ORDERABLES Final Result [facility] [address] [place] [address] * XR Chest 2 Views (05/03/2024 12:19 PM EDT) Anatomical Region Laterality Modality Chest Computed Radiogr aphy Impressions 05/03/2024 1:34 PM EDT Focal opacity within left upper lobe, presumably an indeterminate lesion. CRITICAL RESULT: No. COMMUNICATION: Per this written report. Drafted by Mary Phelps MD on 05/03/2024 1:33 PM Final report signed by Mary Phelps MD on 05/03/2024 1:34 PM Narrative 05/03/2024 1:34 PM EDT CLINICAL INDICATION: PRE-OP [facility] TECHNIQUE: XR CHEST 2 VIEWS COMPARISON: May 01, 2024: May 02, 2024 FINDINGS: Focal opacity within left upper lobe, present before. No acute airspace opacities in the remaining lungs. No cardiac enlargement. No pleural effusions or pneumothorax. Procedure Note Mary Phelps MD - 05/03/2024 CLINICAL INDICATION: PRE-OP [facility]JOR SURGERY TECHNIQUE: XR CHEST 2 VIEWS COMPARISON: May 01, 2024: May 02, 2024 FINDINGS: Focal opacity within left upper lobe, present before. No acute airspaceopacities in the remaining lungs. No cardiac enlargement. No pleuraleffusions or pneumothorax. IMPRESSION: Focal opacity within left upper lobe, presumably an indeterminatelesion. CRITICAL RESULT: No. COMMUNICATION: Per this written report. Drafted by Mary Phelps MD on 05/03/2024 1:33 PM Final report signed by Mary Phelps MD on 05/03/2024 1:34 PM us Shola Sheridan [employer] [facility] IMG XR PROCEDURES Final Resu lt * Pulmonary function testing (05/03/2024 8:37 AM EDT) [id number] 2.23 L 05/03/2024 8:31 AM EDT VYAIRE PFT FVC PRED 2.99 05/03/2024 8:31 AM EDT VYAIRE PFT FVC LLN 2.31 05/03/2024 8:31 AM EDT VYAIRE PFT FVCPREZSCORE -1.83 05/03/2024 8:31 AM EDT VYAIRE PFT FVCPRE%PRED 75 % % 05/03/2024 8:31 AM EDT VYAIRE PFT FVC PREDAUTH US_Quanjer GLI (2011) 05/03/2024 8:31 AM EDT VYAIRE PFT FVC Z-SCORE -1.83 05/03/2024 8:31 AM EDT VYAIRE PFT FEV1 PRE 1.56 L 05/03/2024 8:31 AM EDT VYAIRE PFT FEV1 PRED 2.39 05/03/2024 8:31 AM EDT VYAIRE PFT FEV1 LLN 1.84 05/03/2024 8:31 AM EDT VYAIRE PFT [id number] -2.47 05/03/2024 8:31 AM EDT VYAIRE PFT FEV1_Pre%Pred 65 % % 05/03/2024 8:31 AM EDT VYAIRE PFT FEV1 PREDAUTH US_Quanjer GLI (2011) 05/03/2024 8:31 AM EDT VYAIRE PFT FEV1 Z-SCORE -2.47 05/03/2024 8:31 AM EDT VYAIRE PFT FEV1/FVC PRE 69.79 % 05/03/2024 8:31 AM EDT VYAIRE PFT [id number] 80 05/03/2024 8:31 AM EDT VYAIRE PFT [id number] 69 05/03/2024 8:31 AM EDT VYAIRE PFT DYP8YTMGIBOFVSUT -1.53 05/04/19 8:31 AM EDT VYAIRE PFT XNX2WTUILI%PRED 87 % % 8:31 AM EDT VYAIRE PFT [id number] US_Quanjer GLI (2011) 05/03/2024 8:31 AM EDT VYAIRE PFT WRX1QDWAZYOAF -2 05/03/2024 8:31 AM EDT VYAIRE PFT TTE15-64% PRE 0.96 L/s 05/03/2024 8:31 AM EDT VYAIRE PFT XQL15-85%_Pred 2.36 05/03/2024 8:31 AM EDT VYAIRE PFT IKU6610%LLN 1.27 05/03/2024 8:31 AM EDT VYAIRE PFT BCQ1225%PREZSCORE -2.25 025 8:31 AM EDT VYAIRE PFT WBM5824%PRE%PRED 41 % % 05/04/19 8:31 AM EDT VYAIRE PFT YFM4018%[facility] US_Casejeomar GLI (2011) 05/03/2024 8:31 AM EDT VYAIRE PFT PEF PRE 4.76 L/s 05/03/2024 8:31 AM EDT VYAIRE PFT PEF PRED 6.14 05/03/2024 8:31 AM EDT VYAIRE PFT PEF LLN 4.58 05/03/2024 8:31 AM EDT VYAIRE PFT PEFPREZSCORE -1.46 05/03/2024 8:31 AM EDT VYAIRE PFT PEFPRE%PRED 78 % % 05/03/2024 8:31 AM EDT VYAIRE PFT PEF [facility] NHANES III (1998) 05/03/2024 8:31 AM EDT VYAIRE PFT VOKPAPNYSDCQVLXO2YZE 19.34 ml/(min* mmHg) 05/03/2024 8:31 AM EDT VYAIRE PFT DLCOSINGLEBREATH PRED 18.72 05/03/2024 8:31 AM EDT VYAIRE PFT DLCOSINGLEBREATH LLN 14.50 04/15 8:31 AM EDT VYAIRE PFT DLCOSINGLEBREATH Z-SCORE 0.22 05/03/2024 8:31 AM EDT VYAIRE PFT DLCOSINGLEBREATH % PRED 103.3 % 05/03/2024 8:31 AM EDT VYAIRE PFT DLCOSINGLEBREATH [facility] Elvis ASENCIOO GLI (2019) 05/03/2024 8:31 AM EDT VYAIRE PFT DLCOSINGLEBREATH Z-SCORE 0.22 05/03/2024 8:31 AM EDT VYAIRE PFT KMJDSSUABGYHZFEMC3RM E 20.34 ml/(min* mmHg) 05/03/2024 8:31 AM EDT VYAIRE PFT DLCOCSINGLEBREATH PRED 18.72 05/03/2024 8:31 AM EDT VYAIRE PFT DLCOCSINGLEBREATH LLN 14.50 05/03/2024 8:31 AM EDT VYAIRE PFT DLCOCSINGLEBREATH Z-SCORE 0.56 05/03/2024 8:31 AM EDT VYAIRE PFT DLCOCSINGLEBREATH % PRED 108.7 % 05/03/2024 8:31 AM EDT VYAIRE PFT DLCOCSINGLEBREATH PREDAUTH Stanojevic TLCO GLI (2019) 05/03/2024 8:31 AM EDT VYAIRE PFT [id number] 4.32 ml/(min* mmHg*L) 05/03/2024 8:31 AM EDT VYAIRE PFT DLCOVAPRED 4.40 05/03/2024 8:31 AM EDT VYAIRE PFT DLCOVALLN 3.42 05/03/2024 8:31 AM EDT VYAIRE PFT DLCOVAZSCORE -0.13 05/03/2024 8:31 AM EDT VYAIRE PFT DLCOVA%PRED 98.2 % 05/03/2024 8:31 AM EDT VYAIRE PFT DLCOVAPREDAUTH Stanojevic TLCO GLI (2019) 05/03/2024 8:31 AM EDT VYAIRE PFT DLCOVAZSCORE -0.13 05/03/2024 8:31 AM EDT VYAIRE PFT TOGDVEGTR4LZH 4.55 ml/(min* mmHg*L) 05/03/2024 8:31 AM EDT VYAIRE PFT DLCOC SB/VA PRED 4.40 05/04/19 8:31 AM EDT VYAIRE PFT DLCOC SB/VA LLN 3.42 8:31 AM EDT VYAIRE PFT DLCOC SB/VA Z-SCORE 0.23 05/03 8:31 AM EDT VYAIRE PFT DLCOC SB/VA % PRED 103.3 % 2024 8:31 AM EDT VYAIRE PFT DLCOC SB/VA [facility] Elvis TLCO GLI (2019) 05/03/2024 8:31 AM EDT VYAIRE PFT DLCOC SB/VA Z-SCORE 0.23 05/03 8:31 AM EDT VYAIRE PFT MEBJHXVNKLLMMC6UZP 4.47 L 2024 8:31 AM EDT VYAIRE PFT VASINGLEBREATH PRED 4.29 05/03 8:31 AM EDT VYAIRE PFT VASINGLEBREATH LLN 3.49 2024 8:31 AM EDT VYAIRE PFT VASINGLEBREATH Z-SCORE 0.37 05/03/2024 8:31 AM EDT VYAIRE PFT VASINGLEBREATH % PRED 104.4 % 05/03/2024 8:31 AM EDT VYAIRE PFT VASINGLEBREATH [facility] Elvis TLCO GLI (2019) 05/03/2024 8:31 AM EDT VYAIRE PFT VASINGLEBREATH Z-SCORE 0.37 05/03/2024 8:31 AM EDT VYAIRE PFT SBNLAHMFOVEUNVX2IQJ 2.44 L 05/03 8:31 AM EDT VYAIRE PFT IVCSINGLEBREATH PRED 2.99 03/2 8:31 AM EDT VYAIRE PFT IVCSINGLEBREATH LLN 2.31 05/03 8:31 AM EDT VYAIRE PFT IVCSINGLEBREATH Z-SCORE -1.32 05/03/2024 8:31 AM EDT VYAIRE PFT IVCSINGLEBREATH % PRED 81.7 % 05/03/2024 8:31 AM EDT VYAIRE PFT IVCSINGLEBREATH [facility] _Quanjer GLI (2011) 05/03/2024 8:31 AM EDT VYAIRE PFT HB PRE 11.90 g(Hb)/dL 05/03/2024 8:31 AM EDT VYAIRE PFT PQC9BMR 4.18 L 05/03/2024 8:31 AM EDT VYAIRE PFT TLCPRED 4.65 05/03/2024 8:31 AM EDT VYAIRE PFT TLCLLN 3.78 05/03/2024 8:31 AM EDT VYAIRE PFT TLCULN 5.61 05/03/2024 8:31 AM EDT VYAIRE PFT TLCZSCORE -0.87 05/03/2024 8:31 AM EDT VYAIRE PFT TLC%PRED 90.0 % 05/03/2024 8:31 AM EDT VYAIRE PFT TLCPREDAUTH [facility] GLI (2019)__ 05/03/2024 8:31 AM EDT VYAIRE PFT VC0PRE 2.29 L 05/03/2024 8:31 AM EDT VYAIRE PFT VCPRED 2.99 05/03/2024 8:31 AM EDT VYAIRE PFT VCLLN 2.31 05/03/2024 8:31 AM EDT VYAIRE PFT VCULN 3.70 05/03/2024 8:31 AM EDT VYAIRE PFT VCZSCORE -1.69 05/03/2024 8:31 AM EDT VYAIRE PFT VC%PRED 76.6 % 05/03/2024 8:31 AM EDT VYAIRE PFT VCPREDAUTH US_Quanjer GLI (2011) 05/03/2024 8:31 AM EDT VYAIRE PFT IC0PRE 1.87 L 05/03/2024 8:31 AM EDT VYAIRE PFT ICPRED 2.30 05/03/2024 8:31 AM EDT VYAIRE PFT ICLLN 1.56 05/03/2024 8:31 AM EDT VYAIRE PFT ICULN 3.04 05/03/2024 8:31 AM EDT VYAIRE PFT IC Z-SCORE -0.96 05/03/2024 8:31 AM EDT VYAIRE PFT IC%PRED 81.3 % 05/03/2024 8:31 AM EDT [facility] ([facility]__ 05/03/2024 8:31 AM EDT VYAIRE PFT [id number] 2.31 L 05/03/2024 8:31 AM EDT VYAIRE PFT FRCPLETH PRED 2.37 05/03/2024 8:31 AM EDT VYAIRE PFT FRCPLETH LLN 1.68 05/03/2024 8:31 AM EDT VYAIRE PFT FRCPLETH ULN 3.24 05/03/2024 8:31 AM EDT VYAIRE PFT FRCPLETH Z-SCORE -0.13 05/04/19 8:31 AM EDT VYAIRE PFT FRCPLETH % PRED 97.5 % 8:31 AM EDT VYAIRE PFT FRCPLETH [facility] Lung volumes [facility]I (2019)__ 05/03/2024 8:31 AM EDT VYAIRE PFT GJR0MQK 0.42 L 05/03/2024 8:31 AM EDT VYAIRE PFT ERVPRED 0.82 05/03/2024 8:31 AM EDT VYAIRE PFT ERVLLN 0.31 05/03/2024 8:31 AM EDT VYAIRE PFT ERVULN 1.54 05/03/2024 8:31 AM EDT VYAIRE PFT ERV Z-SCORE -1.23 05/03/2024 8:31 AM EDT VYAIRE PFT ERV%PRED 51.3 % 05/03/2024 8:31 AM EDT [facility]PR[facility]AUT[facility] Lung volumes GLI (2019)__ 05/03/2024 8:31 AM EDT VYAIRE PFT RV0PRE 1.89 L 05/03/2024 8:31 AM EDT VYAIRE PFT RVPRED 1.44 05/03/2024 8:31 AM EDT VYAIRE PFT RVLLN 0.87 05/03/2024 8:31 AM EDT VYAIRE PFT RVULN 2.19 05/03/2024 8:31 AM EDT VYAIRE PFT RVZSCORE 1.03 05/03/2024 8:31 AM EDT VYAIRE PFT RV%PRED 131.0 % 05/03/2024 8:31 AM EDT VYAIRE PFT RVPREDAUTH [facility] volumes GLI (2019)__ 05/03/2024 8:31 AM EDT VYAIRE PFT RV%GCP6WPI 45.22 % 05/03/2024 8:31 AM EDT VYAIRE PFT RV%TLCPRED 31 05/03/2024 8:31 AM EDT VYAIRE PFT RV%TLCLLN 20 05/03/2024 8:31 AM EDT VYAIRE PFT RV%TLCULN 42 05/03/2024 8:31 AM EDT VYAIRE PFT RV%TLCZSCORE 2.12 05/03/2024 8:31 AM EDT VYAIRE PFT RV%TLC%PRED 147.7 % 05/03/2024 8:31 AM EDT VYAIRE PFT RV%TLCPREDAUTH [facility] volumes GLI (2019)__ 05/03/2024 8:31 AM EDT VYAIRE PFT TNF9KEI 2.40 L 05/03/2024 8:31 AM EDT VYAIRE PFT Anatomical Region Laterality Modality PFT 05/03/2024 8:06 AM EDT Narrative 05/04/2024 4:54 PM EDT Pulmonary Function Testing Report Rere Hunter 53 y.o. underwent pulmonary function testing today at the [facility]. The patient underwent spirometry, lung volumes by body plethysmography, and diffusion capacity testing testing. All tests were appropriately administered via ATS/ERS criteria. Spirometry: Reduced FEV1 and FVC with a normal ratio and normal TLC consistent with a non-specific spirometry pattern. Lung Volumes: Elevated RV/TLC which is suggestive of air trapping. Diffusion Capacity: Test Quality: A. Data meets the highest standards for acceptability. Diffusion capacity corrected for Hb is normal. Trend: There are no prior studies for comparison. Marylu Carvajal APRN, DNP PFT ORDERABLES Namrata otto Result * Anti Xa Level by Unfractionated Heparin - Heparin Drip Titration (05/03/2024 7:44 AM EDT) Anti Xa Level Unfractionated Heparin 0.30 <1.00 IU/mL LAB COAGULATION METHOD 05/03/2024 8:34 AM EDT [facility] Blood Venous blood specimen / Unknown Venipuncture / Unknown 05/03/2024 7:44 AM EDT 05/03/2024 7:51 AM EDT Narrative [facility] - 05/03/2024 8:34 AM EDT Therapeutic Range: UFH Full Dose and ACS/MS protocols*: 0.30 - 0.70 IU/mL UFH Low Dose protocol*: 0.25 - 0.50 IU/mL UFH prophylaxis: Not established Marylu Carvajal AUTOMOTIVE PORTER, DNP LAB BLOOD ORDERABLES Final Result [facility] [address] [place] [address] * (ABNORMAL) CBC W/O differential - Hit surveillance (05/03/2024 4:09 AM EDT) WBC Count 11.21(H) 3.70 - 10.30 10*3/uL LAB HEMATOLOGY METHOD 05/03/2024 4:47 AM EDT [facility] RBC Count 3.87(L) 3.90 - 5.20 10*6/uL LAB HEMATOLOGY METHOD 05/03/2024 4:47 AM EDT [facility] HGB 11.9 11.2 - 15.7 g/dL LAB HEMATOLOGY METHOD 05/03/2024 4:47 AM EDT [facility] HCT 34.0 34.0 - 45.0 % LAB HEMATOLOGY METHOD 05/03/2024 4:47 AM EDT [facility] Platelet Count 353 155 - 369 10*3/uL LAB HEMATOLOGY METHOD 05/03/2024 4:47 AM EDT [facility] MCV 88 79 - 98 fL LAB HEMATOLOGY METHOD 05/03/2024 4:47 AM EDT [facility] MCH 30.7 26.0 - 32.0 pg LAB HEMATOLOGY METHOD 05/03/2024 4:47 AM EDT [facility] MCHC 35.0 30.7 - 35.5 g/dL LAB HEMATOLOGY METHOD 05/03/2024 4:47 AM EDT [facility] RDW 13.4 11.5 - 14.5 % LAB HEMATOLOGY METHOD 05/03/2024 4:47 AM EDT [facility] MPV 10.0 8.8 - 12.5 fL LAB HEMATOLOGY METHOD 05/03/2024 4:47 AM EDT [facility] nRBC 0.0 <=0.0 per 100 WBCs LAB HEMATOLOGY METHOD 05/03/2024 4:47 AM EDT [facility] Blood Venous blood specimen / Unknown Venipuncture / Unknown 05/03/2024 4:09 AM EDT 05/03/2024 4:28 AM EDT Marylu Carvajal [employer]OMOT[employer] PORTER, DNP LAB BLOOD ORDERABLES Final Result [facility] [address] [place] [address] * (ABNORMAL) P2Y12 Platelet Receptor Blockade, Verify Now PRU (05/03/2024 4:09 AM EDT) P2Y12 PRU 137(L) 194 - 418 PRU 05/03/2024 5:26 AM EDT [facility] Blood Venous blood specimen / Unknown Venipuncture / Unknown 05/03/2024 4:09 AM EDT 05/03/2024 4:20 AM EDT Narrative [facility] - 05/03/2024 5:26 AM EDT P2Y12 Result Interpretation: P2Y12 values < 194 PRU (low end of reference range) are specific evidence of a P2Y12 inhibitor effect. Test results are in P2Y12 reaction units (PRU). This measures the extent of platelet aggregation in the presence of P2Y12 inhibitor drugs such as clopidogrel (Plavix), prasugrel (Effient), ticagrelor (Brilinta), and ticlopidine (Ticlid). Patients who have been treated with Glycoprotein IIb/IIIa inhibitors should not be tested until platelet function has recovered. This time period is approximately 14 days after discontinuation of abciximab (ReoPro) and up to 48 hours after discontinuation of eptifibatide (Integrilin) and tirofiban (Aggrastat). Result may not be valid for platelet counts < 120 k/uL. The P2Y12 test results should be interpreted in conjunction with other clinical and laboratory data available to the clinician. Testing performed in the [facility]. Anne Marie PHILLIP LAB BLOOD ORDERABLES Final Result Performing Organization Address City/[facility]/ZIP Co de Phone Number [facility] [address] [place] [address] * Magnesium, Plasma (05/03/2024 4:09 AM EDT) Magnesium, Plasma 2.1 1.9 - 2.4 mg/dL 05/03/2024 4:54 AM EDT [facility] Blood Venous blood specimen / Unknown Venipuncture / Unknown 05/03/2024 4:09 AM EDT 05/03/2024 4:21 AM EDT Marylu Carvajal APRN, JORGE LAB BLOOD ORDERABLES Final Result Performing Organization Address [facility] Co de Phone Number [facility] [address] [place] [address] * (ABNORMAL) Basic metabolic panel (05/03/2024 4:09 AM EDT) Glucose, Plasma 106(H) 74 - 99 mg/dL 05/03/2024 4:54 AM EDT [facility] BUN, Plasma 11 7 - 21 mg/dL 05/03/2024 4:54 AM EDT [facility] Creatinine, Plasma 0.94 0.60 - 1.10 mg/dL 05/03/2024 4:54 AM EDT [facility] BUN/Creatinine Ratio 12 05/03/2024 4:54 AM EDT [facility] Sodium, Plasma 137 136 - 145 mmol/L 05/03/2024 4:54 AM EDT [facility] Potassium, Plasma 3.7 3.6 - 4.9 mmol/L 05/03/2024 4:54 AM EDT [facility] Chloride, Plasma 103 97 - 107 mmol/L 05/03/2024 4:54 AM EDT [facility] CO2, Plasma 25 22 - 29 mmol/L 05/03/2024 4:54 AM EDT [facility] Anion Gap 9 6 - 16 mmol/L 05/03/2024 4:54 AM EDT [facility] Total Calcium, Plasma 8.6(L) 8.9 - 10.2 mg/dL 05/03/2024 4:54 AM EDT [facility] eGFRcr 72.3 mL/min/1.7 3m*2 05/03/2024 4:54 AM EDT [facility] Comment:Reported eGFRcr in m L/min/1.73m2 is based the CKD-EPI 2020 equation that does not use a race coefficient. Blood Venous blood specimen / Unknown Venipuncture / Unknown 05/03/2024 4:09 AM EDT 05/03/2024 4:21 AM EDT Marylu Carvajal AUTOMOTIVE PORTER, DNP LAB BLOOD ORDERABLES Final Result [facility] [address] [place] [address] * Anti Xa Level by Unfractionated Heparin - Heparin Drip Titration (05/02/2024 11:36 PM EDT) Anti Xa Level Unfractionated Heparin 0.35 <1.00 IU/mL LAB COAGULATION METHOD 05/03/2024 12:04 AM EDT [facility] Blood Venous blood specimen / Unknown Venipuncture / Unknown 05/02/2024 11:36 PM EDT 05/02/2024 11:41 PM EDT Narrative [facility] - 05/03/2024 12:04 AM EDT Therapeutic Range: UFH Full Dose and ACS/MS protocols*: 0.30 - 0.70 IU/mL UFH Low Dose protocol*: 0.25 - 0.50 IU/mL UFH prophylaxis: Not established Marylu Moralesroe AUTOMOTIVE PORTER, DNP LAB BLOOD ORDERABLES Final Result [facility] [address] [place] [address] * Anti Xa Level by Unfractionated Heparin - Heparin Drip Titration (05/02/2024 6:45 PM EDT) Anti Xa Level Unfractionated Heparin 0.30 <1.00 IU/mL LAB COAGULATION METHOD 05/02/2024 8:02 PM EDT [facility] Blood Venous blood specimen / Unknown Venipuncture / Unknown 05/02/2024 6:45 PM EDT 05/02/2024 6:59 PM EDT Narrative [facility] - 05/02/2024 8:02 PM EDT Therapeutic Range: UFH Full Dose and ACS/MS protocols*: 0.30 - 0.70 IU/mL UFH Low Dose protocol*: 0.25 - 0.50 IU/mL UFH prophylaxis: Not established Marylu Gift Pinpoint Carvajalteddy NICHOLSONN, DNP LAB BLOOD ORDERABLES Final Result Performing Organization Address City/[facility]/ZIP Co de Phone Number [facility] [address] [place] [address] * VAS US Carotid Duplex Bilateral (05/02/2024 3:22 PM EDT) Anatomical Region Laterality Modality Head, Neck, Vascular Ultrasound Impressions 05/03/2024 10:23 AM EDT Right: Mild heterogeneous plaque is noted in the carotid bifurcation. Flow is present in the CCA, ICA, and ECA. ICA velocities do not demonstrate evidence of a hemodynamically significant stenosis (less than 50%). ICA/CCA ratio is 1.2. Left: Mild heterogeneous plaque is noted in the carotid bifurcation. Flow is present in the CCA, ICA, and ECA. ICA velocities do not demonstrate evidence of a hemodynamically significant stenosis (less than 50%). ICA/CCA ratio is 1.0. Vertebral artery flow is antegrade, bilaterally. Subclavian artery flow is multiphasic, bilaterally. COMMUNICATION: Per this written report. Preliminary report signed by Vicki Morris RVT on 05/02/2024 3:42 PM By electronically signing this report, I, the attending physician, attest that I have personally reviewed the images/data for the above examination(s) and I agree with the final edited report. Drafted by DOROTA YipT on 05/02/2024 3:37 PM Final report signed by Giovanni Rashid MD, FACS, FSVS, RPVI on 05/03/2024 10:23 AM Narrative 05/03/2024 10:23 AM EDT CLINICAL INDICATION: Surveillance for carotid artery stenosis. TECHNIQUE: Non-invasive, real time duplex exam of the extracranial carotid circulation with Doppler ultrasonic waveform and spectral analysis was performed. COMPARISON: None. FINDINGS: Right: CCA: 77 cm/s ECA: 122 cm/s ICA: 95 cm/s Vertebral A: 42 cm/s Subclavian A: 124 cm/s Left: CCA: 71 cm/s ECA: 105 cm/s ICA: 78 cm/s Vertebral A: 50 cm/s Subclavian A: 110 cm/s Procedure Note Giovanni Rashid MD - 05/03/2024 CLINICAL INDICATION: Surveillance for carotid artery stenosis. TECHNIQUE: Non-invasive, real time duplex exam of the extracranial carotidcirculation with Doppler ultrasonic waveform and spectral analysis wasperformed. COMPARISON: None. FINDINGS: Right: CCA: 77 cm/s ECA: 122 cm/s ICA: 95 cm/s Vertebral A: 42 cm/s Subclavian A: 124 cm/s Left: CCA: 71 cm/s ECA: 105 cm/s ICA: 78 cm/s Vertebral A: 50 cm/s Subclavian A: 110 cm/s IMPRESSION: Right: Mild heterogeneous plaque is noted in the carotid bifurcation.Flow is present in the CCA, ICA, and ECA. ICA velocities do notdemonstrate evidence of a hemodynamically significant stenosis (less than50%). ICA/CCA ratio is 1.2. Left: Mild heterogeneous plaque is noted in the carotid bifurcation. Flowis present in the CCA, ICA, and ECA. ICA velocities do not demonstrateevidence of a hemodynamically significant stenosis (less than 50%).ICA/CCA ratio is 1.0. Vertebral artery flow is antegrade, bilaterally. Subclavian artery flow is multiphasic, bilaterally. COMMUNICATION: Per this written report. Preliminary report signed by Vicki Morris RVT on 05/02/2024 3:42 PM By electronically signing this report, I, the attending physician, attestthat I have personally reviewed the images/data for the aboveexamination(s) and I agree with the final edited report. Drafted by Vicki Morris RVT on 05/02/2024 3:37 PM Final report signed by Giovanni Rashid MD, HAI, FSCESAR, CRUZITO on05/03/2024 10:23 AM Marylu Balaji Wei AUTOMOTIVE PORTER, DNP CV VASCULAR PROCEDUR ES Final Result * VAS US Venous Duplex Lower Extremity Bilateral (05/02/2024 3:21 PM EDT) Anatomical Region Laterality Modality Lower Extremities Bilateral Ultrasound Impressions 05/03/2024 10:23 AM EDT Right: Normal study. There is no evidence of acute or chronic greater saphenous thrombosis. Greater saphenous dimensions are as described above. Left: Normal study. There is no evidence of acute or chronic greater saphenous thrombosis. Greater saphenous dimensions are as described above. COMMUNICATION: Per this written report. Preliminary report signed by Vicki Morris RVT on 05/02/2024 3:47 PM By electronically signing this report, I, the attending physician, attest that I have personally reviewed the images/data for the above examination(s) and I agree with the final edited report. Drafted by Vicki Morris RVT on 05/02/2024 3:42 PM Final report signed by Giovanni Rashid MD, HAI, FSCESAR, CRUZITO on 05/03/2024 10:23 AM Narrative 05/03/2024 10:23 AM EDT CLINICAL INDICATION: preop planning for bypass surgery TECHNIQUE: Non-invasive, real time duplex exam of the lower extremity venous circulation with Doppler ultrasonic waveform and spectral analysis was performed. COMPARISON: None. FINDINGS: Bilateral screening for DVT is negative. Right: The following transverse measurements of the greater saphenous were obtained: At SFJ: 0.49 x 0.58 cm prox thigh: 0.36 x 0.46 cm mid thigh: 0.22 x 0.36 cm distal thigh: 0.27 x 0.25 cm at knee: 0.28 x 0.41 cm prox calf: 0.18 x 0.24 cm mid calf: 0.18 x 0.25 cm crosses the fascial plane distal calf: Left: The following transverse measurements of the greater saphenous were obtained: At SFJ: 0.50 x 0.51 cm prox thigh: 0.36 x 0.49 cm mid thigh: 0.30 x 0.30 cm distal thigh: 0.25 x 0.42 cm at knee: 0.26 x 0.31 cm prox calf: 0.18 x 0.31 cm mid calf: 0.17 x 0.20 cm crosses the fascial plane distal calf: 0.23 x 0.30 cm Procedure Note Giovanni Rashid MD - 05/03/2024 CLINICAL INDICATION: preop planning for bypass surgery TECHNIQUE: Non-invasive, real time duplex exam of the lower extremity venouscirculation with Doppler ultrasonic waveform and spectral analysis wasperformed. COMPARISON: None. FINDINGS: Bilateral screening for DVT is negative. Right: The following transverse measurements of the greater saphenous wereobtained: At SFJ: 0.49 x 0.58 cm prox thigh: 0.36 x 0.46 cm mid thigh: 0.22 x 0.36 cm distal thigh: 0.27 x 0.25 cm at knee: 0.28 x 0.41 cm prox calf: 0.18 x 0.24 cm mid calf: 0.18 x 0.25 cm crosses the fascial plane distal calf: Left: The following transverse measurements of the greater saphenous wereobtained: At SFJ: 0.50 x 0.51 cm prox thigh: 0.36 x 0.49 cm mid thigh: 0.30 x 0.30 cm distal thigh: 0.25 x 0.42 cm at knee: 0.26 x 0.31 cm prox calf: 0.18 x 0.31 cm mid calf: 0.17 x 0.20 cm crosses the fascial plane distal calf: 0.23 x 0.30 cm IMPRESSION: Right: Normal study. There is no evidence of acute or chronic greatersaphenous thrombosis. Greater saphenous dimensions are as described above. Left: Normal study. There is no evidence of acute or chronic greatersaphenous thrombosis. Greater saphenous dimensions are as described above. COMMUNICATION: Per this written report. Preliminary report signed by Vicki Morris RVT on 05/02/2024 3:47 PM By electronically signing this report, I, the attending physician, attestthat I have personally reviewed the images/data for the aboveexamination(s) and I agree with the final edited report. Drafted by Vicki Morris RVT on 05/02/2024 3:42 PM Final report signed by Giovanni Rashid MD, FACS, FSVS, RPVI on05/03/2024 10:23 AM Marylu Carvajal APRN, DNP CV VASCULAR PROCEDUR ES Final Result * Anti Xa Level by Unfractionated Heparin - Heparin Drip Titration (05/02/2024 1:05 PM EDT) Anti Xa Level Unfractionated Heparin 0.47 <1.00 IU/mL LAB COAGULATION METHOD 05/02/2024 2:05 PM EDT [facility] Blood Venous blood specimen / Unknown Venipuncture / Unknown 05/02/2024 1:05 PM EDT 05/02/2024 1:29 PM EDT Narrative [facility] - 05/02/2024 2:05 PM EDT Therapeutic Range: UFH Full Dose and ACS/MS protocols*: 0.30 - 0.70 IU/mL UFH Low Dose protocol*: 0.25 - 0.50 IU/mL UFH prophylaxis: Not established Marylu Carvajal APRN, DNP LAB BLOOD ORDERABLES Final Result [facility] [address] [place] [address] * ECHO, ADULT TRANSTHORACIC COMPLETE W/ 3D (05/02/2024 7:35 AM EDT) Height 154.9 ALEXIA ISCV Weight 60.8 ALEXIA ISCV BSA 1.59 m2 ALEXIA ISCV LV EDV (3D HM) 90 mL ALEXIA ISCV LV ESV (3D HM) 35 mL ALEXIA ISCV LV EF (3D HM) 61 % ALEXIA ISCV LVIDd 43 mm ALEXIA ISCV IVSd 7 mm ALEXIA ISCV LVPWd 9 mm ALEXIA ISCV LVIDs 26 mm ALEXIA ISCV LA dimension 32 mm ALEXIA ISCV LVOT diam 18 mm ALEXIA ISCV LVOT AREA 2.5 cm2 ALEXIA ISCV LV MASS(C)D 106 g ALEXIA ISCV LV RWT 0.37 mm ALEXIA ISCV Ao Root Diam 28 mm ALEXIA ISCV Ao STJ Diam 17 mm ALEXIA ISCV Asc Ao Diam 26 mm ALEXIA ISCV LAV(MOD-4ch) 23 mL ALEXIA ISCV RA MOD 4Ch 25 mL ALEXIA ISCV ARNOLD 16 mL/m2 ALEXIA ISCV RV base 24 mm ALEXIA ISCV RV Mid 23 mm ALEXIA ISCV RV Length 70 mm ALEXIA ISCV LAV(MOD-bp) Indexed 16 mL/m2 ALEXIA ISCV LAV(MOD-2ch) 28 mL ALEXIA ISCV TAPSE 22 mm ALEXIA ISCV RV s' Bravo 10.8 cm/s ALEXIA ISCV PA acc time 150 msec ALEXIA ISCV mean PAP 12 mmHg ALEXIA ISCV PA WA(ACCEL) 13.6 mmHg ALEXIA ISCV PA acc slope 487.1 cm/s2 ALEXIA ISCV MPA diam 19 mm ALEXIA ISCV MPA area 2.8 cm2 ALEXIA ISCV MV E Vmax 71.7 cm/s ALEXIA ISCV MV A Vmax 73.2 cm/s ALEXIA ISCV MV E/A 1.0 cm/s ALEXIA ISCV LV Lat e' Velocity 6.6 cm/s ALEXIA ISCV Lat E/e' 10.9 ALEXIA ISCV LV Sept e' Bravo 8.1 cm/s ALEXIA ISCV Sep E/e' 8.9 ALEXIA ISCV Avg E/e' 9.9 ALEXIA ISCV Anatomical Region Laterality Modality Echocardiography Narrative 05/02/2024 9:25 AM EDT Left Ventricle: Based on the linear dimension and/or 2D volumes, the left ventricle is normal in size. There is normal left ventricular myocardial thickness and mass. The left ventricular systolic function is normal. The LVEF as measured by Heart Model 3D volume is 61%. The diastolic function is normal. The left ventricular filling pressure is normal. Right Ventricle: The right ventricle is normal in size. The right ventricular systolic function is normal. All cardiac valves were reasonably well interrogated with 2D imaging and/or Doppler assessment and no significant valve regurgitation or stenosis is seen. There is no recent study available for direct [id number] comparison. Left Ventricle Based on the linear dimension and/or 2D volumes, the left ventricle is normal in size. There is normal left ventricular myocardial thickness and mass. No left ventricular mass or thrombus is seen. The left ventricular systolic function is normal. The LVEF as measured by Heart Model 3D volume is 61%. The diastolic function is normal. The left ventricular filling pressure is normal. The left ventricular wall motion is normal. Right Ventricle The right ventricle is normal in size. The right ventricular systolic function is normal. The spectral Doppler envelope of TR is not adequate for calculating the right ventricular systolic pressure (RVSP). Based upon other 2D and Doppler features, the RVSP is probably normal or at most mildly elevated. Left Atrium The left atrial size is normal with an indexed volume of 16-34 mL/m2. The interatrial septum is intact with no evidence for an atrial septal defect. Right Atrium The right atrial volume index is small (<18mL/m2). IVC/SVC Based on the IVC size and respiratory variation, the estimated right atrial pressure is 3mmHg. Mitral Valve The mitral valve leaflets are normal in appearance with no evidence of mitral valve prolapse. There is trace mitral regurgitation. There is no mitral stenosis. Tricuspid Valve The tricuspid valve is normal in appearance. There is no tricuspid valve vegetation. There is trace tricuspid regurgitation. There is no tricuspid stenosis. Aortic Valve The aortic valve appears grossly normal. The left cusp is calcified. There is aortic annular calcification present. There is no valvular regurgitation. There is no hemodynamically significant valvular aortic stenosis. Pulmonic Valve The pulmonic valve is grossly normal. There is trace pulmonic regurgitation. There is no pulmonic stenosis. Pericardium Evidence of epicardial fat. No pericardial effusion. Great Vessels The aortic root is normal in size. The sinus of Valsalva (aortic root) diameter is 28 mm by leading edge to leading edge method. In the maximally visualized portion, the ascending aorta appears normal in size. The ascending aorta diameter is 26 mm. In the maximally visualized portion, the aortic arch appears normal in size. The main pulmonary artery is normal in size. The main pulmonary artery diameter is 19 mm. Study Details A complete transthoracic echocardiogram using two-dimensional (2D), m-mode, color and spectral flow Doppler and 3D imaging was performed. Overall the study quality was adequate. Heart rate was normal. Height: 154.9 cm. Weight: 60.8 kg. BSA: 1.59 m2. The heart rhythm during this exam was most suggestive of a sinus rhythm. Study Recommendation All cardiac valves were reasonably well interrogated with 2D imaging and/or Doppler assessment and no significant valve regurgitation or stenosis is seen. There is no recent study available for direct [id number] comparison. Marylu Carvajal APRN, DNP CV ECHO PROCEDURES F inal Result * Anti Xa Level by Unfractionated Heparin - Heparin Drip Titration (05/02/2024 6:28 AM EDT) Anti Xa Level Unfractionated Heparin 0.28 <1.00 IU/mL LAB COAGULATION METHOD 05/02/2024 7:03 AM EDT [facility] Blood Venous blood specimen / Unknown Venipuncture / Unknown 05/02/2024 6:28 AM EDT 05/02/2024 6:34 AM EDT Narrative [facility] - 05/02/2024 7:03 AM EDT Therapeutic Range: UFH Full Dose and ACS/MS protocols*: 0.30 - 0.70 IU/mL UFH Low Dose protocol*: 0.25 - 0.50 IU/mL UFH prophylaxis: Not established Marylu Carvajal APRN, DNP LAB BLOOD ORDERABLES Final Result [facility] [address] [place] [address] * (ABNORMAL) Troponin T, High Sensitivity, 2 Hour, Plasma (05/02/2024 2:23 AM EDT) Troponin T, High Sensitivity, 2 Hour 31(H) <14 ng/L 05/02/2024 2:53 AM EDT [facility] Troponin Delta 3 <10 ng/L 05/02/2024 2:53 AM EDT [facility] Troponin Delta Interpretation Not Significant 05/02/2024 2:53 AM EDT [facility] Comment:Not Significant. No acute change in troponin observed between the baseline and 2 hour samples. Blood Venous blood specimen / Unknown Venipuncture / Unknown 05/02/2024 2:23 AM EDT 05/02/2024 2:26 AM EDT Marylu Carvajal [employer]TER, DNP LAB BLOOD ORDERABLES Final Result [facility] [address] [id number] * CT Chest wo IV Contrast (05/02/2024 2:11 AM EDT) Anatomical Region Laterality Modality Chest Computed Tomogra phy Impressions 05/02/2024 8:22 AM EDT Left upper lobe groundglass nodule. Recommend follow-up in 6 months. Severe atherosclerosis of the coronary arteries. CRITICAL RESULT: No. COMMUNICATION: Per this written report. By electronically signing this report, I, the attending physician, attest that I have personally reviewed the images/data for the above examination(s) and agree with the final edited report. Drafted by GER Mckee on 05/02/2024 8:02 AM Final report signed by Camila Barth MD on 05/02/2024 8:22 AM Narrative 05/02/2024 8:22 AM EDT CLINICAL INDICATION: CABG work up TECHNIQUE: Multiple CT helical images were obtained from thoracic inlet through upper abdomen without administration of IV contrast. Total DLP (Dose-Length Product): 125.46 mGy.cm. Please note: The reported value represents the total of one or more individual components during the CT acquisition on this date and at this time, and as such, the same value may appear in more than one CT report depending on the interpreting/reporting physicians. COMPARISON: None. FINDINGS: Mediastinum and Pleura: No mediastinal adenopathy. Severe coronary artery calcifications. No pleural or pericardial effusion. 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 Lungs: A 1.5 cm left upper lobe groundglass nodule (series 2 image 37). No focal consolidation. Upper Abdomen: Diffuse hepatic steatosis. Post cholecystectomy. Musculoskeletal: No suspicious lytic or sclerotic lesion. Procedure Note Camila Barth MD - 05/02/2024 CLINICAL INDICATION: CABG work up TECHNIQUE: Multiple CT helical images were obtained from thoracic inlet through upperabdomen without administration of IV contrast. Total DLP (Dose-Length Product): 125.46 mGy.cm. Please note: The reportedvalue represents the total of one or more individual components during theCT acquisition on this date and at this time, and as such, the same valuemay appear in more than one CT report depending on theinterpreting/reporting physicians. COMPARISON: None. FINDINGS: Mediastinum and Pleura: No mediastinal adenopathy. Severe coronary arterycalcifications. No pleural or pericardial effusion. Incidentally seen isaberrant right subclavian artery. Lungs: A 1.5 cm left upper lobe groundglass nodule (series 2 image 37). Nofocal consolidation. Upper Abdomen: Diffuse hepatic steatosis. Post cholecystectomy. Musculoskeletal: No suspicious lytic or sclerotic lesion. IMPRESSION: Left upper lobe groundglass nodule. Recommend follow-up in 6 months. Severe atherosclerosis of the coronary arteries. CRITICAL RESULT: No. COMMUNICATION: Per this written report. By electronically signing this report, I, the attending physician, baron I have personally reviewed the images/data for the aboveexamination(s) and agree with the final edited report. Drafted by GER Mckee on 05/02/2024 8:02 AM Final report signed by Camila Barth MD on 05/02/2024 8:22 AM Marylu Carvajal [employer]ORTER, DNP IMG CT PROCEDURES Fi nal Result * Hemoglobin A1c (05/01/2024 11:58 PM EDT) Hemoglobin A1c 5.3 <5.7 % 05/02/2024 6:29 AM EDT [facility] Blood Venous blood specimen / Unknown 05/01/2024 11:58 PM EDT 05/02/2024 12:08 AM EDT Narrative [facility] - 05/02/2024 6:29 AM EDT HA1C Interpretive Data: Diagnosis of Diabetes: Diabetic > or = 6.5% Pre-diabetic 5.7 to 6.4% Non-diabetic < or = 5.6% Glycemic Targets for Type I and Type II Diabetics: Non- Adults <7.0% Adults <6.0% Children and Adolescents <7.5% Source: [employer]. Standards of medical care in diabetes,2017. Diabetes Care.2017:40 (suppl 1):S1-S135. HbA1c assay performed by an ion-exchange chromatography method that is certified traceable to the DCCT. Anne Marie PHILLIP LAB BLOOD ORDERABLES Final Result [facility] [address] [place] [address] * (ABNORMAL) Lipid panel (05/01/2024 11:58 PM EDT) Cholesterol, Plasma 247(H) <200 mg/dL 05/02/2024 6:36 AM EDT [facility] Comment: Cholesterol Reference Range (age >17 years): Desirable <200 mg/dL Borderline 200 to 239 mg/dL Undesirable >239 mg/dL HDL 36(L) >=50 mg/dL 05/02/2024 6:36 AM EDT [facility] Comment: HDL Cholesterol Reference Ranges (age >17 years): Female, acceptable > or = 50 mg/dL Male, acceptable > or = 40 mg/dL Triglycerides, Plasma 271(H) <150 mg/dL 05/02/2024 6:36 AM EDT [facility] Comment: Triglyceride Reference Range (age >17 years): Desirable: <150 mg/dL Borderline high: 150 to 199 mg/dL High: 200 to 499 mg/dL Very high: >499 mg/dL Increased risk of pancreatitis: >1000 mg/dL Cholesterol/HDL Ratio 7 05/02/2024 6:36 AM EDT [facility] LDL, Calculated 160(H) <100 mg/dL 6:36 AM EDT [facility] Comment: LDL Cholesterol Reference Range (age >17 years): Optimal: <100 mg/dL Near or above optimal: 100 - 129 mg/dL Borderline high: 130 - 159 mg/dL High: 160 - 189 mg/dL Very high: >189 mg/dL LDL Cholesterol Reference Range (age <18 years): Desirable: <110 mg/dL Borderline: 110 - 129 mg/dL Undesirable: >130 mg/dL LDL Cholesterol is calculated using the Short/NIH equation. Fasting greater than or equal to 12 hours? Unknown 05/02/2024 6:36 AM EDT [facility] Blood Venous blood specimen / Unknown 05/01/2024 11:58 PM EDT 05/02/2024 12:08 AM EDT us Anne Marie PHILLIP LAB BLOOD ORDERABLES Final Result Performing Organization Address City/[facility] Co de Phone Number [facility] [address] [place] [address] * Morphology (05/01/2024 11:58 PM EDT) RBC Morphology RBC Morphology Consistent with Indices and RDW LAB HEMATOLOGY METHOD 05/02/2024 2:05 AM EDT [facility] Platelet Estimate Platelet smear estimate consistent with automated count LAB HEMATOLOGY METHOD 05/02/2024 2:05 AM EDT [facility] Blood Venous blood specimen / Unknown Venipuncture / Unknown 05/01/2024 11:58 PM EDT 05/02/2024 12:05 AM EDT us Marylu Carvajal APRN, DNP LAB BLOOD ORDERABLES Final Result Performing Organization Address [facility] Co de Phone Number [facility] [address] [place] [address] * (ABNORMAL) Manual Differential (05/01/2024 11:58 PM EDT) Blasts % 0 % LAB HEMATOLOGY METHOD 05/02/2024 2:05 AM EDT [facility] Promyelocytes % 0 % LAB HEMATOLOGY METHOD 05/02/2024 2:05 AM EDT [facility] Myelocytes % 0 % LAB HEMATOLOGY METHOD 05/02/2024 2:05 AM EDT [facility] Metamyelocytes % 0 % LAB HEMATOLOGY METHOD 05/02/2024 2:05 AM EDT [facility] Neutrophils % 52 % LAB HEMATOLOGY METHOD 05/02/2024 2:05 AM EDT [facility] Lymphocytes % 33 % LAB HEMATOLOGY METHOD 05/02/2024 2:05 AM EDT [facility] Reactive Lymphocytes % 0 % LAB HEMATOLOGY METHOD 05/02/2024 2:05 AM EDT [facility] Monocytes % 7 % LAB HEMATOLOGY METHOD 05/02/2024 2:05 AM EDT [facility] Eosinophils % 4 % LAB HEMATOLOGY METHOD 05/02/2024 2:05 AM EDT [facility] Basophils % 4 % LAB HEMATOLOGY METHOD 05/02/2024 2:05 AM EDT [facility] Blasts Absolute 0.00 10*3/UL LAB HEMATOLOGY METHOD 05/02/2024 2:05 AM EDT [facility] Promyelocytes Absolute 0.00 10*3/uL LAB HEMATOLOGY METHOD 05/02/2024 2:05 AM EDT [facility] Myelocytes Absolute 0.00 10*3/uL LAB HEMATOLOGY METHOD 05/02/2024 2:05 AM EDT [facility] Metamyelocytes Absolute 0.00 10*3/uL LAB HEMATOLOGY METHOD 05/02/2024 2:05 AM EDT [facility] Neutrophils Absolute 6.81(H) 1.60 - 6.10 10*3/uL LAB HEMATOLOGY METHOD 05/02/2024 2:05 AM EDT [facility] Lymphocytes Absolute 4.32(H) 1.20 - 3.90 10*3/uL LAB HEMATOLOGY METHOD 05/02/2024 2:05 AM EDT [facility] Reactive Lymphocytes Absolute 0.00 10*3/uL LAB HEMATOLOGY METHOD 05/02/2024 2:05 AM EDT [facility] Monocytes Absolute 0.92(H) 0.30 - 0.90 10*3/uL LAB HEMATOLOGY METHOD 05/02/2024 2:05 AM EDT [facility] Eosinophils Absolute 0.52(H) 0.00 - 0.50 10*3/uL LAB HEMATOLOGY METHOD 05/02/2024 2:05 AM EDT [facility] Basophils Absolute 0.52(H) 0.00 - 0.10 10*3/uL LAB HEMATOLOGY METHOD 05/02/2024 2:05 AM EDT [facility] Blood Venous blood specimen / Unknown Venipuncture / Unknown 05/01/2024 11:58 PM EDT 05/02/2024 12:05 AM EDT us Marylu Balaji Wei [employer], DNP LAB BLOOD ORDERABLES Final Result [facility] [address] [place] [address] * Gold Top (05/01/2024 11:58 PM EDT) Extra Hold for add-ons 05/02/2024 3:02 AM EDT [facility] Comment:Auto resulted. Blood Venous blood specimen / Unknown 05/01/2024 11:58 PM EDT 05/02/2024 12:08 AM EDT us Edson Mcclure DO LAB BLOOD ORDERABLES Final R esult Performing Organization Address City/[facility]/ZIP Co de Phone Number [facility] [address] [place] [address] * Lavender Top (05/01/2024 11:58 PM EDT) Extra Hold for add-ons 05/02/2024 3:02 AM EDT [facility] Comment:Auto resulted. Blood Venous blood specimen / Unknown 05/01/2024 11:58 PM EDT 05/02/2024 12:08 AM EDT us Edson Mcclure DO LAB BLOOD ORDERABLES Final R esult Performing Organization Address City/[facility]/ZIP Co de Phone Number [facility] [address] [place] [address] * Light Green Top (05/01/2024 11:58 PM EDT) Extra Hold for add-ons 05/02/2024 3:02 AM EDT [facility] Comment:Auto resulted. Blood Venous blood specimen / Unknown 05/01/2024 11:58 PM EDT 05/02/2024 12:08 AM EDT us Edson Mcclure DO LAB BLOOD ORDERABLES Final R esult [facility] [address] [place] [address] * (ABNORMAL) Troponin T, High Sensitivity, 0 Hour Plasma, Reflex to 2 Hour (05/01/2024 11:58 PM EDT) Troponin T, High Sensitivity, 0 Hour 34(H) <14 ng/L 05/02/2024 12:40 AM EDT [facility] Blood Venous blood specimen / Unknown Venipuncture / Unknown 05/01/2024 11:58 PM EDT 05/02/2024 12:05 AM EDT Marylu Carvajal APRN, JORGE LAB BLOOD ORDERABLES Final Result Performing Organization Address [facility]/ZIP Co de Phone Number [facility] [address] [place] [address] * Anti Xa Level by Unfractionated Heparin - Baseline (05/01/2024 11:58 PM EDT) Pathologist [facility] Anti Xa Level Unfractionated Heparin 0.68 <1.00 IU/mL LAB COAGULATION METHOD 05/02/2024 1:05 AM EDT [facility] Blood Venous blood specimen / Unknown Venipuncture / Unknown 05/01/2024 11:58 PM EDT 05/02/2024 12:05 AM EDT Narrative [facility] - 05/02/2024 1:05 AM EDT Therapeutic Range: UFH Full Dose and ACS/MS protocols*: 0.30 - 0.70 IU/mL UFH Low Dose protocol*: 0.25 - 0.50 IU/mL UFH prophylaxis: Not established Marylu Carvajal APRN, JORGE LAB BLOOD ORDERABLES Final Result [facility] [address] [place] [address] * N-Terminal Probnp, Plasma (05/01/2024 11:58 PM EDT) N-Terminal, PROBNP, Plasma 339 0 - 899 pg/mL 05/02/2024 12:40 AM EDT [facility] Blood Venous blood specimen / Unknown Venipuncture / Unknown 05/01/2024 11:58 PM EDT 05/02/2024 12:05 AM EDT Marylu Carvajal APRN, JORGE LAB BLOOD ORDERABLES Final Result [facility] [address] [place] [address] * (ABNORMAL) APTT (05/01/2024 11:58 PM EDT) aPTT 79(H) 25 - 35 sec LAB COAGULATION METHOD 05/02/2024 1:05 AM EDT [facility] Blood Venous blood specimen / Unknown Venipuncture / Unknown 05/01/2024 11:58 PM EDT 05/02/2024 12:05 AM EDT Narrative [facility] - 05/02/2024 1:05 AM EDT [facility] Marylu Carvajal APRN, JORGE LAB BLOOD ORDERABLES Final Result [facility] [address] [place] [address] * Type and Screen (05/01/2024 11:58 PM EDT) ABO/Rh B Positive 05/01/2024 11:02 PM EDT BLOOD BANK Antibody Screen Negative 05/01/2024 11:02 PM EDT BLOOD BANK Specimen Expiration 05/04/2024 23:59 05/01/2024 11:02 PM EDT BLOOD BANK Blood Venous blood specimen / Unknown Venipuncture / Unknown 05/01/2024 11:58 PM EDT 05/02/2024 12:09 AM EDT Marylu Carvajal APRN, JORGE LAB BLOOD BANK TEST ORDERABLES Final Result BLOOD BANK [address] [place] [address], * Ionized calcium, serum (05/01/2024 11:58 PM EDT) Ionized Calcium, Serum 4.6 4.6 - 5.3 mg/dL LAB HEMATOLOGY METHOD 05/02/2024 1:03 AM EDT [facility] Blood Venous blood specimen / Unknown Venipuncture / Unknown 05/01/2024 11:58 PM EDT 05/02/2024 12:07 AM EDT Marylu Carvajal APRN, JORGE LAB BLOOD ORDERABLES Final Result [facility] [address] [place] [address] * Phosphorus, Plasma (05/01/2024 11:58 PM EDT) Pathologist [facility] Phosphorus, Plasma 3.6 2.5 - 4.5 mg/dL 05/02/2024 12:40 AM EDT [facility] Blood Venous blood specimen / Unknown Venipuncture / Unknown 05/01/2024 11:58 PM EDT 05/02/2024 12:05 AM EDT Marylu Carvajal APRN, JORGE LAB [place] [address] * Magnesium, Plasma (05/01/2024 11:58 PM EDT) Pathologist [facility] Magnesium, Plasma 2.3 1.9 - 2.4 mg/dL 05/02/2024 12:40 AM EDT [facility] Blood Venous blood specimen / Unknown Venipuncture / Unknown 05/01/2024 11:58 PM EDT 05/02/2024 12:05 AM EDT Marylu Carvajal APRN, JORGE LAB BLOOD ORDERABLES Final Result [facility] [address] [place] [address] * Prothrombin Time/INR (05/01/2024 11:58 PM EDT) Prothrombin Time 13.4 12.0 - 14.3 sec LAB COAGULATION METHOD 05/02/2024 12:36 AM EDT [facility] INR 1.0 0.9 - 1.1 LAB COAGULATION METHOD 05/02/2024 12:36 AM EDT [facility] Blood Venous blood specimen / Unknown Venipuncture / Unknown 05/01/2024 11:58 PM EDT 05/02/2024 12:05 AM EDT Narrative [facility] - 05/02/2024 12:36 AM EDT OPTIMAL INR RANGES FOR PATIENT ON ORAL ANTICOAGULANT THERAPY Prevention of venous thromboembolism INR 2.0 to 3.0 In patients with heart disease: Atrial fibrillation INR 2.0 to 3.0 Valvular heart disease INR 2.0 to 3.0 Tissue heart valves INR 2.0 to 3.0 Mechanical prosthetic valves INR 2.5 to 3.5 Prevention of recurrent MS INR 2.5 to 3.5 Marylu Carvajal [employer]ORTER, DNP LAB BLOOD ORDERABLES Final Result [facility] [address] [place] [address] * (ABNORMAL) Comprehensive metabolic panel (05/01/2024 11:58 PM EDT) Glucose, Plasma 97 74 - 99 mg/dL 05/02/2024 12:40 AM EDT [facility] BUN, Plasma 9 7 - 21 mg/dL 05/02/2024 12:40 AM EDT [facility] Creatinine, Plasma 0.85 0.60 - 1.10 mg/dL 05/02/2024 12:40 AM EDT [facility] BUN/Creatinine Ratio 11 05/02/2024 12:40 AM EDT [facility] Sodium, Plasma 137 136 - 145 mmol/L 05/02/2024 12:40 AM EDT [facility] Potassium, Plasma 3.6 3.6 - 4.9 mmol/L 05/02/2024 12:40 AM EDT [facility] Chloride, Plasma 104 97 - 107 mmol/L 05/02/2024 12:40 AM EDT [facility] CO2, Plasma 22 22 - 29 mmol/L 05/02/2024 12:40 AM EDT [facility] Anion Gap 11 6 - 16 mmol/L 05/02/2024 12:40 AM EDT [facility] Total Calcium, Plasma 8.5(L) 8.9 - 10.2 mg/dL 05/02/2024 12:40 AM EDT [facility] Total Protein 6.3 6.3 - 7.9 g/dL 05/02/2024 12:40 AM EDT [facility] Albumin, Plasma 3.8 3.5 - 5.2 g/dL 05/02/2024 12:40 AM EDT [facility] AST, Plasma 21 10 - 35 U/L 05/02/2024 12:40 AM EDT [facility] ALT, Plasma 17 10 - 35 U/L 05/02/2024 12:40 AM EDT [facility] Alkaline Phosphatase, Plasma 124(H) 35 - 104 U/L 05/02/2024 12:40 AM EDT [facility] Total Bilirubin, Plasma 0.4 0.2 - 1.1 mg/dL 05/02/2024 12:40 AM EDT [facility] eGFRcr 81.5 mL/min/1.7 3m*2 05/02/2024 12:40 AM EDT [facility] Comment:Reported eGFRcr in m L/min/1.73m2 is based the CKD-EPI 2020 equation that does not use a race coefficient. Blood Venous blood specimen / Unknown Venipuncture / Unknown 05/01/2024 11:58 PM EDT 05/02/2024 12:05 AM EDT Marylu Carvajal APRN, DNP LAB BLOOD ORDERABLES Final Result [facility] [address] [place] [address] * (ABNORMAL) CBC and Differential (05/01/2024 11:58 PM EDT) WBC Count 13.10(H) 3.70 - 10.30 10*3/uL LAB HEMATOLOGY METHOD 05/02/2024 2:05 AM EDT [facility] RBC Count 4.15 3.90 - 5.20 10*6/uL LAB HEMATOLOGY METHOD 05/02/2024 2:05 AM EDT [facility] HGB 12.8 11.2 - 15.7 g/dL LAB HEMATOLOGY METHOD 05/02/2024 2:05 AM EDT [facility] HCT 35.9 34.0 - 45.0 % LAB HEMATOLOGY METHOD 05/02/2024 2:05 AM EDT [facility] Platelet Count 374(H) 155 - 369 10*3/uL LAB HEMATOLOGY METHOD 05/02/2024 2:05 AM EDT [facility] MCV 87 79 - 98 fL LAB HEMATOLOGY METHOD 05/02/2024 2:05 AM EDT [facility] MCH 30.8 26.0 - 32.0 pg LAB HEMATOLOGY METHOD 05/02/2024 2:05 AM EDT [facility] MCHC 35.7(H) 30.7 - 35.5 g/dL LAB HEMATOLOGY METHOD 05/02/2024 2:05 AM EDT [facility] RDW 13.4 11.5 - 14.5 % LAB HEMATOLOGY METHOD 05/02/2024 2:05 AM EDT [facility] MPV 9.9 8.8 - 12.5 fL LAB HEMATOLOGY METHOD 05/02/2024 2:05 AM EDT [facility] nRBC 0.0 <=0.0 per 100 WBCs LAB HEMATOLOGY METHOD 05/02/2024 2:05 AM EDT [facility] Differential Type Manual LAB HEMATOLOGY METHOD 05/02/2024 2:05 AM EDT [facility] Blood Venous blood specimen / Unknown Venipuncture / Unknown 05/01/2024 11:58 PM EDT 05/02/2024 12:05 AM EDT Narrative [facility] - 05/02/2024 2:05 AM EDT Therapeutic decision making should be based on absolute values, rather than percentages. The previously reported component Neutrophils % is no longer being reported.The previously reported component Lymphocytes % is no longer being reported.The previously reported component Monocytes % is no longer being reported.The previously reported component Eosinophils % is no longer being reported.The previously reported component Basophils % is no longer being reported.The previously reported component Immature Granulocytes % is no longer being reported.The previously reported component Absolute Neutrophils is no longer being reported.The previously reported component Absolute Lymphocytes is no longer being reported.The previously reported component Absolute Monocytes is no longer being reported.The previously reported component Absolute Eosinophils is no longer being reported.The previously reported component Absolute Basophils is no longer being reported.The previously reported component Absolute Immature Granulocytes is no longer being reported. Marylu Carvajal [employer], DNP LAB BLOOD ORDERABLES Final Result [facility] [address] [place] [address] * (ABNORMAL) Platelet P2Y12 Receptor Blockade, Verify Now PRU (05/01/2024 11:58 PM EDT) P2Y12 PRU 56(L) 194 - 418 PRU 05/02/2024 12:24 AM EDT [facility] Blood Venous blood specimen / Unknown Venipuncture / Unknown 05/01/2024 11:58 PM EDT 05/02/2024 12:11 AM EDT Narrative [facility] - 05/02/2024 12:24 AM EDT P2Y12 Result Interpretation: P2Y12 values < 194 PRU (low end of reference range) are specific evidence of a P2Y12 inhibitor effect. Test results are in P2Y12 reaction units (PRU). This measures the extent of platelet aggregation in the presence of P2Y12 inhibitor drugs such as clopidogrel (Plavix), prasugrel (Effient), ticagrelor (Brilinta), and ticlopidine (Ticlid). Patients who have been treated with Glycoprotein IIb/IIIa inhibitors should not be tested until platelet function has recovered. This time period is approximately 14 days after discontinuation of abciximab (ReoPro) and up to 48 hours after discontinuation of eptifibatide (Integrilin) and tirofiban (Aggrastat). Result may not be valid for platelet counts < 120 k/uL. The P2Y12 test results should be interpreted in conjunction with other clinical and laboratory data available to the clinician. Testing performed in the [facility]. Marylu Carvajal APRN, DNP LAB BLOOD ORDERABLES Final Result [facility] [address] [place] [address] * Fibrinogen, Quantitative (Clottable) (05/01/2024 11:58 PM EDT) Fibrinogen, Quantitative (Clottable) 291 208 - 459 mg/dL LAB COAGULATION METHOD 05/02/2024 1:05 AM EDT [facility] Blood Venous blood specimen / Unknown Venipuncture / Unknown 05/01/2024 11:58 PM EDT 05/02/2024 12:05 AM EDT Marylu Carvajal APRN, JORGE LAB BLOOD ORDERABLES Final Result Performing Organization Address [facility] Co de Phone Number [facility] [address] [place] [address] * ECG Adult (05/01/2024 11:25 PM EDT) EKG DIAGNOSIS CLASS Abnormal MUSE ECG Ventricular Rate 71 BPM MUSE ECG Atrial Rate 71 BPM MUSE ECG WA Interval 156 ms MUSE ECG QRSD Interval 70 ms MUSE ECG QT Interval 478 ms MUSE ECG QTC Interval 519 ms MUSE ECG P [place] 78 degrees MUSE ECG R [place] 45 degrees MUSE ECG T Wave [place] 43 degrees MUSE ECG Diagnosis Normal sinus rhythm MUSE ECG Diagnosis Nonspecific ST and T wave abnormality MUSE ECG Diagnosis Prolonged QT MUSE ECG Diagnosis Abnormal ECG MUSE ECG Diagnosis MUSE ECG Diagnosis Confirmed by Graham Singleton ([id number]) on 05/02/2024 5:27:14 AM MUSE ECG 05/01/2024 11:2 5 PM EDT 05/02/2024 5:27 AM EDT Marylu Carvajal APRN, JORGE ECG ORDERABLES Namrata l Result Performing Organization Address City/[facility]/ZIP Co de Phone Number MUSE ECG * XR Chest 1 View (05/01/2024 11:18 PM EDT) Anatomical Region Laterality Modality Chest Digital Radiogra phy Impressions 05/01/2024 11:31 PM EDT No acute pulmonary process. CRITICAL RESULT: No COMMUNICATION: Per this written report. Drafted by Camila Barth MD on 05/01/2024 11:30 PM Final report signed by Camila Barth MD on 05/01/2024 11:31 PM Narrative 05/01/2024 11:31 PM EDT CLINICAL INDICATION: Eval lung keene TECHNIQUE: XR CHEST 1 VIEW COMPARISON: None. FINDINGS: The cardiomediastinal silhouette is normal. The lungs are clear focal consolidation or pleural effusion. No pneumothorax. The visualized osseous structures are intact. Procedure Note Camila Barth MD - 05/01/2024 CLINICAL INDICATION: Eval lung keene TECHNIQUE: XR CHEST 1 VIEW COMPARISON: None. FINDINGS: The cardiomediastinal silhouette is normal. The lungs are clear focalconsolidation or pleural effusion. No pneumothorax. The visualized osseousstructures are intact. IMPRESSION: No acute pulmonary process. CRITICAL RESULT: No COMMUNICATION: Per this written report. Drafted by Camila Barth MD on 05/01/2024 11:30 PM Final report signed by Camila Barth MD on 05/01/2024 11:31 PM Marylu Carvajal [employer], DNP IMG XR PROCEDURES Fi nal Result documented in this encounter Visit Diagnoses Diagnosis CAD, multiple vessel- Primary CAD, multiple vessel Cardiac volume overload S/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 Colon perforation (CMS/HCC) Perforation of intestine Abdominal fluid collection Other ascites S/P colon resection Other postprocedural status Anxiety and depression COPD (chronic obstructive pulmonary disease) (CMS/HCC) Chronic airway obstruction, not elsewhere classified Tobacco use NSTEMI (non-ST elevated myocardial infarction) (CMS/HCC) Acute myocardial infarction, subendocardial infarction, episode of care unspecified GERD (gastroesophageal reflux disease) Esophageal reflux Leukocytosis Leukocytosis, unspecified Thrombocytosis Essential thrombocythemia Hypocalcemia Prolonged Q-T interval on ECG Nonspecific abnormal electrocardiogram (ECG) (EKG) Hyperlipidemia Other and unspecified hyperlipidemia THOM (obstructive sleep apnea) Obstructive sleep apnea (adult) (pediatric) S/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 On mechanically assisted ventilation (CMS/HCC) Low cardiac output syndrome (CMS/HCC) Unspecified heart failure Hypertension Unspecified essential hypertension Cardiac volume overload Hypoglycemia Hypoglycemia, unspecified Nausea with vomiting Acute blood loss anemia (ABLA) Gastric perforation (CMS/HCC) Chronic or unspecified gastric ulcer with perforation, without mention of obstruction On total parenteral nutrition (TPN) Ileus (CMS/HCC) Paralytic ileus Colon perforation (CMS/HCC) Perforation of intestine Post-op pain Other acute postoperative pain Delirium Other alteration of consciousness Abdominal fluid collection Other ascites Hyponatremia Hyposmolality and/or hyponatremia Hypomagnesemia Disorders of magnesium metabolism Transaminitis Nonspecific elevation of levels of transaminase or lactic acid dehydrogenase (LDH) Acute respiratory failure with hypoxia Hypokalemia Hypopotassemia Thrombocytopenia (CMS/HCC) Unspecified thrombocytopenia Hypernatremia Hyperosmolality and/or hypernatremia Hypermagnesemia Disorders of magnesium metabolism Hyperphosphatemia Disorders of phosphorus metabolism Hypophosphatemia Disorders of phosphorus metabolism MESHA (acute kidney injury) (CMS/HCC) Pleural effusion Unspecified pleural effusion Essential tremor Sinus tachycardia Other specified cardiac dysrhythmias Incomplete RBBB Right bundle branch block Hypertriglyceridemia Pure hyperglyceridemia Hypoalphalipoproteinemia Lipoprotein deficiencies Overweight S/P colostomy (CMS/HCC) Colostomy status S/P colon resection Other postprocedural status Tremor Abnormal involuntary movements Hyperkalemia Hyperpotassemia documented in this encounter Admitting Diagnoses Diagnosis CAD, multiple vessel Colon perforation (CMS/HCC) Perforation of intestine documented in this encounter Administered Medications Inactive Administered Medications - up to 3 most recent administrations Medication Order MAR Action Action Date Dose Rate Site acetaminophen (Ofirmev) injection 1,000 mg 1,000 mg, Intravenous, Every 6 hours, 4 doses, First dose on 05/12/24 at 1615, Last dose on 05/13/24 at 1015, Routine New Bag 05/13/2024 3:36 AM EDT 1,000 mg 400 mL /hr New Bag 05/12/2024 10:06 PM EDT 1,000 mg 400 mL/hr New Bag 05/12/2024 3:40 PM EDT 1,000 mg 400 mL/hr acetaminophen (Ofirmev) injection 1,000 mg 1,000 mg, Intravenous, Once, 1 dose, On Tue05/23/24 at 2015, Routine New Bag 05/23/2024 7:49 PM EDT 1,000 mg acetaminophen (Ofirmev) injection 1,000 mg 1,000 mg, Intravenous, Every 8 hours, 6 doses, First dose on Tue05/25/24 at 1115, Last dose on Tue05/27/24 at 0315, Routine New Bag 05/27/2024 4:35 AM EDT 1,000 mg 400 mL /hr New Bag 05/26/2024 8:20 PM EDT 1,000 mg 400 mL/hr New Bag 05/26/2024 10:51 AM EDT 1,000 mg 400 mL/hr acetaminophen (Ofirmev) injection 650 mg 650 mg, Intravenous, Once, 1 dose, On Tue05/17/24 at 1600, Routine New Bag 05/17/2024 5:13 PM EDT 650 mg acetaminophen (Ofirmev) injection 650 mg 650 mg, Intravenous, Once, 1 dose, On Tue05/18/24 at 1300, Routine New Bag 05/18/2024 2:39 PM EDT 650 mg 260 mL/hr acetaminophen (Ofirmev) injection 650 mg 650 mg, Intravenous, Every 6 hours, 4 doses, First dose on Tue05/21/24 at 2245, Last dose on Tue05/22/24 at 1645, Routine New Bag 05/22/2024 4:11 PM EDT 650 mg New 05/22/2024 11:20 AM EDT 650 mg New 05/22/2024 5:03 AM EDT 650 mg acetaminophen (Tylenol) suppository 650 mg 650 mg, Rectal, Every 6 hours PRN, Starting on Tue05/18/24 at 1851, Until Tue05/23/24 at 1918, Routine, mild pain, fever Given 05/22/2024 9:16 PM EDT 650 mg Given 05/21/2024 9:21 PM EDT 650 mg Given 05/21/2024 8:30 AM EDT 650 mg acetaminophen (Tylenol) tablet 1,000 mg 1,000 mg, Oral, Every 8 hours, 6 doses, First dose (after last modification) on Tue05/11/24 at 0400, Last dose on Tue05/12/24 at 2000, Routine, Recovery(Phase II-Outpatient)/On Unit(Inpatient) Given 05/11/2024 8:01 PM EDT 1,000 mg Given 05/11/2024 11:13 AM EDT 1,000 mg Given 05/11/2024 4:15 AM EDT 1,000 mg acetaminophen (Tylenol) tablet 1,000 mg 1,000 mg, Oral, Every 6 hours scheduled, First dose (after last modification) on Tue06/17/24 at 0745, Until Discontinued, Routine Given 06/21/2024 1:02 PM EDT 1,000 mg Given 06/21/2024 1:02 AM EDT 1,000 mg Given 06/20/2024 5:58 PM EDT 1,000 mg acetaminophen (Tylenol) tablet 500 mg 500 mg, Oral, Every 6 hours scheduled, First dose on [place] 05/27/24 at 1230, Until Discontinued, Routine Given 06/14/2024 5:00 AM EDT 500 mg Given 06/13/2024 11:35 PM EDT 500 mg Given 06/13/2024 5:45 PM EDT 500 mg acetaminophen (Tylenol) tablet 500 mg 500 mg, Oral, Every 6 hours PRN, Starting on [facility] 06/14/24 at 0830, Until Tue06/17/24 at 0656, Routine, mild pain Given 06/17/2024 5:57 AM EDT 500 mg Given 06/15/2024 8:16 PM EDT 500 mg Given 06/15/2024 10:35 AM EDT 500 mg acetaminophen (Tylenol) tablet 650 mg 650 mg, Oral, Every 4 hours PRN, Starting on Tue05/02/24 at 1629, Until Tue05/07/24 at 0537, Routine, mild pain, fever Given 05/02/2024 4:59 PM EDT 650 mg acetaminophen (Tylenol) tablet 650 mg 650 mg, Oral, Every 4 hours PRN, Starting on Tue05/06/24 at 2040, Until Tue05/08/24 at 1002, Routine, Recovery(Phase II-Outpatient)/On Unit(Inpatient), mild pain, fever, mild pain or temp >38.6 Given 05/08/2024 9:22 AM EDT 650 mg Given 05/07/2024 5:49 PM EDT 650 mg Given 05/07/2024 12:51 PM EDT 650 mg acetaminophen (Tylenol) tablet 650 mg 650 mg, Oral, Every 6 hours PRN, Starting on Tue05/08/24 at 1215, Until Tue05/09/24 at 1143, Routine, Recovery(Phase II-Outpatient)/On Unit(Inpatient), mild pain Given 05/09/2024 8:58 AM EDT 650 mg Given 05/09/2024 2:55 AM EDT 650 mg Given 05/08/2024 8:29 PM EDT 650 mg acetaminophen (Tylenol) tablet 650 mg 650 mg, Oral, Every 6 hours, First dose (after last modification) on Tue05/09/24 at 1230, Until Discontinued, Routine Given 05/10/2024 12:06 AM EDT 650 mg Given 05/09/2024 11:55 AM EDT 650 mg acetaminophen (Tylenol) tablet 650 mg 650 mg, Nasogastric, Every 6 hours, First dose (after last modification) on Emily 05/10/24 at 1315, Until Discontinued, Routine, Recovery(Phase II-Outpatient)/On Unit(Inpatient) Given 05/10/2024 8:00 PM EDT 650 mg Given 05/10/2024 1:26 PM EDT 650 mg acetaminophen (Tylenol) tablet 650 mg 650 mg, Oral, Every 6 hours PRN, Starting on Tue05/13/24 at 0724, Until Emily 05/17/24 at 1506, Routine, moderate pain, headaches Given 05/17/2024 11:28 AM EDT 650 mg Given 05/16/2024 10:05 PM EDT 650 mg Given 05/14/2024 9:44 PM EDT 650 mg Adult 2-in-1 TPN 65 mL/hr, Continuous TPN, Starting on 05/19/24 at 2100, Until 05/20/24 at 2059, 1,560 mL, Administer over 24 Hours, Intravenous, Central, Routine Rate/Dose Verify 05/20/2024 8:00 PM EDT 65 mL/hr Rate/Dose Verify 05/20/2024 7:00 PM EDT 65 mL/h r Rate/Dose Verify 05/20/2024 6:00 PM EDT 65 mL/h r Adult 2-in-1 TPN 65 mL/hr, Continuous TPN, Starting on Tue05/20/24 at 2100, Until Tue05/21/24 at 2058, 1,560 mL, Administer over 24 Hours, Intravenous, Central, Routine Rate/Dose Verify 05/21/2024 8:00 PM EDT 65 mL/hr Rate/Dose Verify 05/21/2024 7:00 PM EDT 65 mL/h r Rate/Dose Verify 05/21/2024 6:00 PM EDT 65 mL/h r Adult 2-in-1 TPN 65 mL/hr, Continuous TPN, Starting on Tue05/21/24 at 2100, Until Tue05/25/24 at 2058, 1,560 mL, Administer over 24 Hours, Intravenous, Central, Routine Rate/Dose Verify 05/25/2024 8:00 PM EDT 65 mL/hr Rate/Dose Verify 05/25/2024 7:00 PM EDT 65 mL/h r Rate/Dose Verify 05/25/2024 6:00 PM EDT 65 mL/h r Adult 2-in-1 TPN 65 mL/hr, Continuous TPN, Starting on Tue05/25/24 at 2100, Until Tue05/27/24 at 2058, 1,560 mL, Administer over 24 Hours, Intravenous, Central, Routine Rate/Dose Verify 05/27/2024 8:00 PM EDT 65 mL/hr Rate/Dose Verify 05/27/2024 7:00 PM EDT 65 mL/h r Rate/Dose Verify 05/27/2024 6:00 PM EDT 65 mL/h r Adult 2-in-1 TPN 35 mL/hr, Continuous TPN, Starting on Tue05/27/24 at 2100, Until Tue05/29/24 at 2058, 840 mL, Administer over 24 Hours, Intravenous, Central, Routine Rate/Dose Verify 05/28/2024 10:00 PM EDT 35 mL/hr Rate/Dose Verify 05/28/2024 9:00 PM EDT 35 mL/h r New Bag 05/28/2024 8:54 PM EDT 35 mL/hr Adult 2-in-1 TPN 40 mL/hr, Continuous TPN, Starting on Tue05/29/24 at 2100, Until Tue05/31/24 at 2058, 960 mL, Administer over 24 Hours, Intravenous, Central, Routine New Bag 05/30/2024 9:24 PM EDT 4 0 mL/hr Rate/Dose Verify 05/30/2024 7:00 PM EDT 40 mL/h r Rate/Dose Verify 05/30/2024 6:00 PM EDT 40 mL/h r Adult 2-in-1 TPN 40 mL/hr, Continuous TPN, Starting on Emily 05/31/24 at 2100, Until 06/02/24 at 2059, 960 mL, Administer over 24 Hours, Intravenous, Central, Routine New Bag 06/01/2024 10:42 PM EDT 40 mL/hr New Bag 05/31/2024 10:46 PM EDT 40 mL/hr Adult 2-in-1 TPN 65 mL/hr, Continuous TPN, Starting on 06/02/24 at 2100, Until Emily 06/07/24 at 2059, 1,560 mL, Administer over 24 Hours, Intravenous, Central, Routine New Bag 06/06/2024 9:11 PM EDT 6 5 mL/hr New Bag 06/05/2024 9:58 PM EDT 65 mL/hr New Bag 06/04/2024 9:14 PM EDT 65 mL/hr Adult 2-in-1 TPN 65 mL/hr, Continuous TPN, Starting on Emily 06/07/24 at 2100, Until 06/09/24 at 1252, 1,560 mL, Administer over 24 Hours, Intravenous, Central, Routine Rate/Dose Verify 06/09/2024 1:19 PM EDT 65 mL/hr Rate/Dose Verify 06/09/2024 1:00 PM EDT 65 mL/h r Rate/Dose Verify 06/09/2024 12:00 PM EDT 65 mL/ hr Adult 2-in-1 TPN 40 mL/hr, Continuous TPN, Starting on 06/09/24 at 1345, Until 06/09/24 at 2034, 960 mL, Administer over 24 Hours, Intravenous, Central, Routine Rate/Dose Verify 06/09/2024 6:00 PM EDT 40 mL/hr Rate/Dose Verify 06/09/2024 5:00 PM EDT 40 mL/h r Rate/Dose Verify 06/09/2024 4:00 PM EDT 40 mL/h r albumin human 5 % infusion 250 mL 250 mL, Intravenous, Every 30 min PRN, Starting on 05/06/24 at 2040, Until 05/07/24 at 0724, Routine, Recovery(Phase II-Outpatient)/On Unit(Inpatient), fluid resuscitation New Bag 05/07/2024 1:52 AM EDT 250 mL New Bag 05/07/2024 1:47 AM EDT 250 mL ALPRAZolam (Xanax) tablet 0.25 mg 0.25 mg, Oral, Nightly PRN, Starting on Emily 05/03/24 at 1040, Until 05/07/24 at 0537, Routine, anxiety Given 05/05/2024 10:39 PM EDT 0.25 mg Given 05/04/2024 9:50 PM EDT 0.25 mg Given 05/03/2024 8:54 PM EDT 0.25 mg aspirin chewable tablet 81 mg 81 mg, Oral, Daily, First dose on Tue05/02/24 at 0900, Until Discontinued, Routine Given 05/10/2024 8:49 AM EDT 81 mg Given 05/09/2024 8:59 AM EDT 81 mg Given 05/08/2024 9:22 AM EDT 81 mg aspirin chewable tablet 81 mg 81 mg, Nasogastric, Daily, First dose (after last modification) on Tue05/11/24 at 0900, Until Discontinued, Routine, Recovery(Phase II-Outpatient)/On Unit(Inpatient) Given 05/11/2024 8:08 AM EDT 81 mg aspirin chewable tablet 81 mg 81 mg, Oral, Daily, First dose (after last modification) on 05/12/24 at 0900, Until Discontinued, Routine, Recovery(Phase II-Outpatient)/On Unit(Inpatient) Given 05/17/2024 10:31 AM EDT 81 mg Given 05/16/2024 8:46 AM EDT 81 mg Given 05/15/2024 8:15 AM EDT 81 mg aspirin chewable tablet 81 mg 81 mg, Oral, Daily, First dose on 05/26/24 at 1630, Until Discontinued, Routine Given 06/21/2024 10:22 AM EDT 81 mg Given 06/20/2024 8:20 AM EDT 81 mg Given 06/19/2024 9:06 AM EDT 81 mg aspirin suppository 150 mg 150 mg, Rectal, Daily, First dose on Tue05/18/24 at 1000, Until Discontinued, Routine Given 05/25/2024 10:00 AM EDT 150 mg Given 05/24/2024 1:19 PM EDT 150 mg Given 05/23/2024 10:07 AM EDT 150 mg atorvastatin (Lipitor) tablet 80 mg 80 mg, Oral, Nightly, First dose on Tue05/02/24 at 2100, Until Discontinued, Routine Given 05/09/2024 9:35 PM EDT 80 mg Given 05/08/2024 8:29 PM EDT 80 mg Given 05/07/2024 8:33 PM EDT 80 mg atorvastatin (Lipitor) tablet 80 mg 80 mg, Nasogastric, Nightly, First dose (after last modification) on Tue05/10/24 at 2100, Until Discontinued, Routine, Recovery(Phase II-Outpatient)/On Unit(Inpatient) Given 05/10/2024 8:38 PM EDT 80 mg atorvastatin (Lipitor) tablet 80 mg 80 mg, Oral, Nightly, First dose (after last modification) on Tue05/11/24 at 2100, Until Discontinued, Routine, Recovery(Phase II-Outpatient)/On Unit(Inpatient) Given 05/17/2024 9:01 PM EDT 80 mg Given 05/16/2024 10:02 PM EDT 80 mg Given 05/15/2024 8:40 PM EDT 80 mg benzocaine-menthol (Chloraseptic) 6-10 MG lozenge 1 lozenge 1 lozenge, Mouth/Throat, Every 4 hours PRN, Starting on Tue05/14/24 at 2012, Until Tue06/21/24 at 1741, Routine, sore throat Given 05/17/2024 4:24 PM EDT 1 lozenge Given 05/17/2024 10:31 AM EDT 1 lozenge Given 05/16/2024 6:05 PM EDT 1 lozenge bisacodyl (Dulcolax) EC tablet 10 mg 10 mg, Oral, Daily PRN, Starting on Tue06/14/24 at 0729, Until Tue06/21/24 at 1741, Routine, constipation Given 06/14/2024 7:59 AM EDT 10 mg bisacodyl (Dulcolax) suppository 10 mg 10 mg, Rectal, Daily, First dose on Tue05/12/24 at 1630, Until Discontinued, Routine Given 05/13/2024 8:47 AM EDT 10 mg Given 05/12/2024 6:22 PM EDT 10 mg bisacodyl (Dulcolax) suppository 10 mg 10 mg, Rectal, 2 times daily, 6 doses, First dose (after last modification) on Tue05/13/24 at 2100, Last dose on Tue05/16/24 at 0900, Routine Given 05/15/2024 8:14 AM EDT 10 mg Given 05/14/2024 9:45 PM EDT 10 mg Given 05/13/2024 9:33 PM EDT 10 mg bisacodyl (Dulcolax) suppository 10 mg 10 mg, Rectal, Daily, First dose on Tue05/19/24 at 1315, Until Discontinued, Routine Given 05/20/2024 9:22 AM EDT 10 mg buPROPion (Wellbutrin) tablet 150 mg 150 mg, Nasogastric, 2 times daily, 2 doses, First dose on Tue05/11/24 at 0900, Last dose on Tue05/11/24 at 2100, Routine Given 05/11/2024 8:10 AM EDT 150 mg buPROPion (Wellbutrin) tablet 150 mg 150 mg, Nasogastric, 2 times daily, 1 dose, First dose (after last modification) on Tue05/11/24 at 2100, Routine Given 05/11/2024 8:52 PM EDT 150 mg buPROPion (Wellbutrin) tablet 150 mg 150 mg, Nasogastric, 2 times daily, First dose on Tue05/12/24 at 2215, Until Discontinued, Routine Given 05/17/2024 9:18 PM EDT 150 mg Given 05/17/2024 10:31 AM EDT 150 mg Given 05/16/2024 10:07 PM EDT 150 mg buPROPion (Wellbutrin) tablet 150 mg 150 mg, Oral, 2 times daily, First dose on Tue05/27/24 at 1245, Until Discontinued, Routine Given 05/30/2024 9:13 AM EDT 150 mg Given 05/29/2024 8:28 PM EDT 150 mg Given 05/29/2024 8:10 AM EDT 150 mg buPROPion XL (Wellbutrin XL) 24 hr tablet 300 mg 300 mg, Oral, Daily, First dose on Tue05/02/24 at 0900, Until Discontinued, Routine Given 05/10/2024 8:49 AM EDT 300 mg Given 05/09/2024 8:59 AM EDT 300 mg Given 05/08/2024 9:22 AM EDT 300 mg buPROPion XL (Wellbutrin XL) 24 hr tablet 300 mg 300 mg, Oral, Daily, First dose on Tue05/31/24 at 0900, Until Discontinued, Routine Given 06/21/2024 10:2 2 AM EDT 300 mg Given 06/20/2024 8:20 AM EDT 300 mg Given 06/19/2024 9:06 AM EDT 300 mg busPIRone (Buspar) tablet 5 mg 5 mg, Oral, 3 times daily PRN, Starting on Tue05/03/24 at 0238, Until Tue05/03/24 at 0828, Routine, anxiety Given 05/03/2024 2:45 AM EDT 5 mg calcium carbonate (Tums) chewable tablet 500 mg 500 mg, Oral, 4 times daily PRN, Starting on Tue05/02/24 at 0957, Until Tue05/07/24 at 0537, Routine, indigestion, heartburn Given 05/03/2024 7:48 AM EDT 500 mg Given 05/02/2024 10:03 AM EDT 500 mg calcium carbonate (Tums) chewable tablet 500 mg 500 mg, Oral, 4 times daily PRN, Starting on Tue05/31/24 at 1019, Until Tue06/21/24 at 1741, Routine, indigestion, heartburn Given 06/10/2024 1:55 PM EDT 500 mg Given 06/08/2024 8:32 PM EDT 500 mg Given 06/07/2024 8:53 PM EDT 500 mg calcium chloride 10 % injection 1 g 1 g, Intravenous, Once, 1 dose, On Tue05/07/24 at 0515, STAT Given 05/07/2024 4:44 AM EDT 1 g calcium chloride 10 % injection 1 g 1 g, Intravenous, Once, 1 dose, On Tue05/11/24 at 0745, Routine Given 05/11/2024 7:49 AM EDT 1 g calcium chloride 10 % injection 1 g 1 g, Intravenous, Once, 1 dose, On Tue05/23/24 at 2300, Routine Given 05/23/2024 10:26 PM EDT 1 g calcium gluconate 1 g in sodium chloride 0.9% 100 mL IVPB (vial adapter required) 1 g, Intravenous, Once, 1 dose, On Emily 05/17/24 at 1900, at 240 mL/hr, Administer over 30 Minutes, Routine New Bag 05/17/2024 7:24 PM EDT 1 g 240 mL/hr calcium gluconate 1 g in sodium chloride 0.9% 100 mL IVPB (vial adapter required) 1 g, Intravenous, Once, 1 dose, On Tue05/21/24 at 1545, at 240 mL/hr, Administer over 30 Minutes, Routine Rate/Dose Verify 05/21/2024 3:00 PM EDT 240 mL/ hr New Bag 05/21/2024 2:55 PM EDT 1 g 240 mL/hr ceFAZolin (Ancef) injection 2 g 2 g, Intravenous, Every 8 hours, 3 doses, First dose on Tue05/07/24 at 0200, Last dose on Tue05/07/24 at 1800, Routine, Recovery(Phase II-Outpatient)/On Unit(Inpatient) Given 05/07/2024 5:49 PM EDT 2 g Given 05/07/2024 9:35 AM EDT 2 g Given 05/07/2024 1:47 AM EDT 2 g citalopram (CeleXA) tablet 40 mg 40 mg, Oral, Daily, First dose on Tue05/02/24 at 0900, Until Discontinued, Routine Given 05/10/2024 8:49 AM EDT 40 mg Given 05/09/2024 8:59 AM EDT 40 mg Given 05/08/2024 9:22 AM EDT 40 mg citalopram (CeleXA) tablet 40 mg 40 mg, Nasogastric, Daily, First dose (after last modification) on Tue05/11/24 at 0900, Until Discontinued, Routine, Recovery(Phase II-Outpatient)/On Unit(Inpatient) Given 05/11/2024 8:08 AM EDT 40 mg citalopram (CeleXA) tablet 40 mg 40 mg, Oral, Daily, First dose (after last modification) on 05/12/24 at 0900, Until Discontinued, Routine, Recovery(Phase II-Outpatient)/On Unit(Inpatient) Given 05/17/2024 10:31 AM EDT 40 mg Given 05/16/2024 8:46 AM EDT 40 mg Given 05/15/2024 8:15 AM EDT 40 mg citalopram (CeleXA) tablet 40 mg 40 mg, Oral, Daily, First dose on Tue05/27/24 at 1245, Until Discontinued, Routine Given 06/21/2024 10:23 AM EDT 40 mg Given 06/20/2024 8:20 AM EDT 40 mg Given 06/19/2024 9:06 AM EDT 40 mg dexamethasone (Decadron) injection 4 mg 4 mg, Intravenous, Once, 1 dose, On Tue05/09/24 at 1230, Routine Given 05/09/2024 11:55 AM EDT 4 mg dexmedetomidine in NS (Precedex) 4 mcg/mL infusion 0.4-1.4 mcg/kg/hr 61.1 kg (6.11-21.385 mL/hr, rounded to 6.11-21.39 mL/hr), 4 mcg/mL, Intravenous, Titrated, Starting on Tue05/06/24 at 2230, Until Tue05/07/24 at 0724, Routine Rate/Dose Verify 05/07/2024 6:00 AM EDT 0.8 mcg/kg/hr 12.22 mL/hr Rate/Dose Verify 05/07/2024 5:00 AM EDT 0.8 mcg/kg/hr 12.2 2 mL/hr Rate/Dose Verify 05/07/2024 4:00 AM EDT 0.8 mcg/kg/hr 12.2 2 mL/hr dextrose 5 % and lactated Ringer's infusion 75 mL/hr, Intravenous, Continuous, Starting on Tue05/11/24 at 1215, Until Tue05/16/24 at 0953, Routine Rate/Dose Verify 05/16/2024 10:00 AM EDT 75 mL/hr 75 mL/hr Rate/Dose Verify 05/16/2024 9:00 AM EDT 75 mL/hr 75 mL/h r Rate/Dose Verify 05/16/2024 8:00 AM EDT 75 mL/hr 75 mL/h r dextrose 5 % and sodium chloride 0.45 % infusion 75 mL/hr, Intravenous, Continuous, Starting on Tue05/09/24 at 1200, Until Tue05/10/24 at 2139, Routine Rate/Dose Verify 05/10/2024 9:00 PM EDT 75 mL/hr 75 mL/hr Rate/Dose Verify 05/10/2024 8:00 PM EDT 75 mL/hr 75 mL/h r Rate/Dose Verify 05/10/2024 7:00 PM EDT 75 mL/hr 75 mL/h r dextrose 5 % and sodium chloride 0.45 % infusion 100 mL/hr, Intravenous, Continuous, Starting on Tue05/17/24 at 1900, Until Tue05/17/24 at 2048, Routine Rate/Dose Change 05/17/2024 6:30 PM EDT 100 mL/hr 100 mL/hr dextrose 5 % and sodium chloride 0.45 % with KCl 20 mEq/L infusion 100 mL/hr, Intravenous, Continuous, Starting on Tue05/17/24 at 0930, Until 05/19/24 at 2310, Routine Rate/Dose Verify 05/19/2024 10:00 PM EDT 100 mL/hr 100 mL/hr Rate/Dose Verify 05/19/2024 9:00 PM EDT 100 mL/hr 100 mL/ hr Rate/Dose Verify 05/19/2024 8:00 PM EDT 100 mL/hr 100 mL/ hr dextrose 5 % infusion 60 mL/hr, Intravenous, Continuous, Starting on Tue05/17/24 at 0100, Until Tue05/17/24 at 0620, Routine New Bag 05/17/2024 12:23 AM EDT 60 mL/hr 60 mL/hr dextrose 50 % solution 12.5 g 12.5 g, Intravenous, Every 15 min PRN, Starting on Tue05/09/24 at 0842, Until Tue05/15/24 at 0831, Routine, low blood sugar Given 05/11/2024 11:34 AM EDT 12.5 g Given 05/09/2024 12:00 PM EDT 12.5 g Given 05/09/2024 9:35 AM EDT 12.5 g dextrose 50 % solution 12.5 g 12.5 g, Intravenous, Every 15 min PRN, Starting on Tue05/17/24 at 1854, Until Tue05/21/24 at 0925, Routine, low blood sugar Given 05/19/2024 1:11 AM EDT 12. 5 g dextrose 50 % solution 25 g 25 g, Intravenous, Once, 1 dose, On Tue05/07/24 at 2300, Routine Given 05/07/2024 10:39 PM EDT 25 g diphenhydrAMINE (Benadryl) injection 12.5 mg 12.5 mg, Intravenous, Once, 1 dose, On Tue05/08/24 at 0515, Routine Given 05/08/2024 4:22 AM EDT 12.5 mg docusate sodium (Colace) 50 MG/5ML oral liquid 100 mg 100 mg, Nasogastric, 2 times daily, First dose on Tue05/10/24 at 2100, Until Discontinued, Routine, Recovery(Phase II-Outpatient)/On Unit(Inpatient) Given 05/11/2024 8:08 AM EDT 100 mg Given 05/10/2024 8:38 PM EDT 100 mg docusate sodium (Colace) capsule 100 mg 100 mg, Oral, 2 times daily, First dose (after last modification) on Tue05/09/24 at 0900, Until Discontinued, Routine Given 05/10/2024 8:49 AM EDT 100 mg Given 05/09/2024 9:35 PM EDT 100 mg Given 05/09/2024 8:59 AM EDT 100 mg docusate sodium (Colace) capsule 100 mg 100 mg, Oral, 2 times daily, First dose on Tue05/11/24 at 2100, Until Discontinued, Routine, Recovery(Phase II-Outpatient)/On Unit(Inpatient) Given 05/17/2024 10:32 AM EDT 100 mg Given 05/15/2024 8:14 AM EDT 100 mg Given 05/14/2024 9:45 PM EDT 100 mg docusate sodium (Colace) capsule 50 mg 50 mg, Oral, 2 times daily, First dose on Tue05/07/24 at 0900, Until Discontinued, Routine Given 05/08/2024 8:29 PM EDT 50 mg Given 05/08/2024 9:23 AM EDT 50 mg Given 05/07/2024 8:33 PM EDT 50 mg dronabinol (Marinol) capsule 2.5 mg 2.5 mg, Oral, 2 times daily before meals, First dose on 06/09/24 at 1700, Until Discontinued, Routine Given 06/21/2024 10:22 AM EDT 2.5 mg Given 06/20/2024 5:58 PM EDT 2.5 mg Given 06/20/2024 8:45 AM EDT 2.5 mg electrolyte (Isolyte-S or Plasmalyte-A) IV solution 250 mL 250 mL, Intravenous, Once, 1 dose, On Emily 05/17/24 at 1645, Routine Given 05/17/2024 5:14 PM EDT 250 mL electrolyte (Isolyte-S or Plasmalyte-A) IV solution 250 mL 250 mL, Intravenous, Once, 1 dose, On Tue05/23/24 at 2215, Routine Given 05/23/2024 9:39 PM EDT 250 mL electrolyte (Isolyte-S or Plasmalyte-A) IV solution 250 mL 250 mL, Intravenous, Once, 1 dose, On Emily 05/24/24 at 0130, Routine Given 05/24/2024 12:54 AM EDT 250 mL enoxaparin (Lovenox) syringe 40 mg 40 mg, Subcutaneous, Daily, First dose on 06/10/24 at 2100, Until Discontinued, Routine Given 06/21/2024 10:23 AM EDT 40 mg Left Lower Abdomen Given 06/20/2024 8:20 AM EDT 40 mg Ri ght Lower Abdomen Given 06/19/2024 9:05 AM EDT 40 mg Le ft Lower Abdomen EPINEPHrine infusion 8 mg in NS 250 mL (0.032 mg/mL) (compounding pharmacy premix) 0.01-0.08 mcg/kg/min 61.1 kg (1.1456-9.165 mL/hr, rounded to 1.15-9.17 mL/hr), 0.032 mg/mL, Intravenous, Titrated, Starting on 05/06/24 at 2230, Until Tue05/07/24 at 1246, STAT Rate/Dose Verify 05/07/2024 12:00 PM EDT 0.01 mcg/kg/min 1.15 mL/hr Rate/Dose Change 05/07/2024 11:00 AM EDT 0.01 mcg/kg/min 1 .15 mL/hr Rate/Dose Verify 05/07/2024 10:00 AM EDT 0.03 mcg/kg/min 3 .44 mL/hr esomeprazole (NexIUM) packet for suspension 40 mg 40 mg, Oral, Daily before breakfast, First dose (after last modification) on Tue05/09/24 at 1115, Until Discontinued, Routine Given 05/09/2024 10:23 AM EDT 40 mg esomeprazole (NexIUM) packet for suspension 40 mg 40 mg, Oral, Daily before breakfast, First dose on Tue05/14/24 at 1500, Until Discontinued, Routine Given 05/16/2024 8:30 AM EDT 40 mg Given 05/15/2024 8:15 AM EDT 40 mg Given 05/14/2024 2:22 PM EDT 40 mg famotidine (Pepcid) tablet 20 mg 20 mg, Oral, Daily PRN, Starting on Tue05/09/24 at 1100, Until Tue05/10/24 at 1223, Routine, heartburn, indigestion Given 05/09/2024 11:55 AM EDT 20 mg famotidine (Pepcid) tablet 20 mg 20 mg, Nasogastric, Daily PRN, Starting on Tue05/10/24 at 1222, Until Tue05/11/24 at 1648, Routine, Recovery(Phase II-Outpatient)/On Unit(Inpatient), heartburn, indigestion Given 05/10/2024 8:37 PM EDT 20 mg famotidine (Pepcid) tablet 20 mg 20 mg, Oral, Daily PRN, Starting on Tue05/11/24 at 1648, Until Emily 05/17/24 at 1852, Routine, Recovery(Phase II-Outpatient)/On Unit(Inpatient), heartburn, indigestion Given 05/17/2024 10:32 AM EDT 20 mg Given 05/14/2024 9:45 PM EDT 20 mg famotidine PF (Pepcid) injection 20 mg 20 mg, Intravenous, Once, 1 dose, On 05/19/24 at 0030, Routine Given 05/18/2024 11:52 PM EDT 20 mg famotidine PF (Pepcid) injection 20 mg 20 mg, Intravenous, Once, 1 dose, On 05/26/24 at 0000, Routine Given 05/25/2024 11:23 PM EDT 20 mg fat emulsion fish/plant based (SMOFlipid) 20 % IV infusion 250 mL 250 mL, Every other day, First dose on Tue05/20/24 at 0900, Until Discontinued, 250 mL, Administer over 12 Hours, at 20.8 mL/hr, Intravenous, Routine Rate/Dose Verify 06/09/2024 6:00 PM EDT 20.8 mL/hr Rate/Dose Verify 06/09/2024 5:00 PM EDT 20.8 mL /hr Rate/Dose Verify 06/09/2024 4:00 PM EDT 20.8 mL /hr fentaNYL (Sublimaze) injection Intravenous, As needed, Starting on Tue06/04/24 at 1000, Until Tue06/04/24 at 1009, Routine, Intraprocedure Given 06/04/2024 10:09 AM EDT 25 mcg Given 06/04/2024 10:00 AM EDT 25 mcg furosemide (Lasix) injection 20 mg 20 mg, Intravenous, Once, 1 dose, On Tue05/07/24 at 1600, Routine Given 05/07/2024 3:19 PM EDT 20 mg furosemide (Lasix) injection 20 mg 20 mg, Intravenous, Once, 1 dose, On Tue05/08/24 at 0700, Routine Given 05/08/2024 6:45 AM EDT 20 mg furosemide (Lasix) injection 20 mg 20 mg, Intravenous, Once, 1 dose, On Tue05/19/24 at 0615, Routine Given 05/19/2024 5:21 AM EDT 20 mg furosemide (Lasix) injection 20 mg 20 mg, Intravenous, Once, 1 dose, On Tue05/19/24 at 1300, Routine Given 05/19/2024 1:26 PM EDT 20 mg furosemide (Lasix) injection 20 mg 20 mg, Intravenous, Once, 1 dose, On Tue05/20/24 at 1230, Routine Given 05/20/2024 12:27 PM EDT 20 mg furosemide (Lasix) injection 20 mg 20 mg, Intravenous, Once, 1 dose, On Tue05/22/24 at 0030, Routine Given 05/21/2024 11:52 PM EDT 20 mg furosemide (Lasix) injection 20 mg 20 mg, Intravenous, Once, 1 dose, On 05/26/24 at 1930, Routine Given 05/26/2024 8:20 PM EDT 20 mg furosemide (Lasix) injection 40 mg 40 mg, Intravenous, Once, 1 dose, On Tue05/09/24 at 0915, Routine Given 05/09/2024 8:58 AM EDT 40 mg furosemide (Lasix) injection 40 mg 40 mg, Intravenous, Once, 1 dose, On Tue05/09/24 at 1015, Routine Given 05/09/2024 10:10 AM EDT 40 mg furosemide (Lasix) injection 40 mg 40 mg, Intravenous, Once, 1 dose, On Emily 05/10/24 at 0930, Routine Given 05/10/2024 9:09 AM EDT 40 mg furosemide (Lasix) injection 40 mg 40 mg, Intravenous, Once, 1 dose, On Tue05/11/24 at 1045, Routine Given 05/11/2024 10:30 AM EDT 40 mg guanFACINE (Tenex) tablet 1 mg 1 mg, Oral, Daily, First dose on Tue05/11/24 at 1045, Until Discontinued, Routine Given 05/15/2024 8:15 AM EDT 1 mg Given 05/14/2024 8:09 AM EDT 1 mg Given 05/13/2024 8:47 AM EDT 1 mg haloperidol lactate (Haldol) injection 2.5 mg 2.5 mg, Intravenous, Once, 1 dose, On 05/19/24 at 0230, Routine Given 05/19/2024 2:16 AM EDT 2.5 mg haloperidol lactate (Haldol) injection 2.5 mg 2.5 mg, Intravenous, Every 8 hours PRN, Starting on 05/19/24 at 1308, Until Tue05/23/24 at 0846, Routine, agitation Given 05/23/2024 12:35 AM EDT 2.5 mg Given 05/21/2024 9:16 AM EDT 2.5 mg Given 05/20/2024 1:16 PM EDT 2.5 mg heparin (porcine) - COM Adult ACS/MS Protocol - MAR Re-bolus Calculator injection 0-3,700 Units 0-3,700 Units (rounded from 0-3,666 Units = 0-60 Units/kg 61.1 kg), Intravenous, Every 6 hours PRN, Starting on Tue05/02/24 at 0234, Until Tue05/06/24 at 2053, Routine, other, Anti-Xa Level Given 05/02/2024 7:35 AM EDT 1,800 Units heparin (porcine) injection 5,000 Units 5,000 Units, Subcutaneous, Every 8 hours, First dose on Tue05/08/24 at 1045, Until Discontinued, Routine Given 06/10/2024 12:38 PM EDT 5,000 Units Left Lower Abdomen Given 06/10/2024 4:17 AM EDT 5,000 Units R ight Upper Arm (Back) Given 06/09/2024 9:06 PM EDT 5,000 Units R ight Lower Abdomen heparin 25,000 units/250 mL (100 unit/mL) infusion - Adult ACS/MS Protocol 0-35 Units/kg/hr 61.1 kg (0-21.385 mL/hr, rounded to 0-21.4 mL/hr), Intravenous, Titrated, Starting on Tue05/02/24 at 0000, Until Tue05/06/24 at 2053, STAT Rate/Dose Verify 05/06/2024 8:00 AM EDT 13.9 Units/kg/hr 8.5 mL/hr New Bag 05/06/2024 2:49 AM EDT 13.9 Units/kg/hr 8.5 mL/ hr Rate/Dose Verify 05/05/2024 5:00 PM EDT 13.9 Units/kg/hr 8 .5 mL/hr hydrALAZINE (Apresoline) injection 10 mg 10 mg, Intravenous, Every 6 hours PRN, Starting on Tue05/20/24 at 0842, Until Tue06/05/24 at 1052, Routine, high blood pressure, SBP>140 Given 05/20/2024 1:16 PM EDT 10 mg HYDROmorphone (Dilaudid) injection 0.25 mg 0.25 mg, Intravenous, Every 2 hour PRN, Starting on Tue05/18/24 at 1242, Until Tue05/25/24 at 1014, Routine, mild - moderate pain Given 05/22/2024 3:01 AM EDT 0.25 mg Given 05/21/2024 11:52 PM EDT 0.25 mg Given 05/18/2024 5:35 PM EDT 0.25 mg HYDROmorphone (Dilaudid) injection 0.5 mg 0.5 mg, Intravenous, Every 2 hour PRN, Starting on Tue05/06/24 at 2144, Until Tue05/08/24 at 0611, Routine, moderate pain Given 05/08/2024 5:04 AM EDT 0.5 mg Given 05/08/2024 3:02 AM EDT 0.5 mg Given 05/08/2024 1:01 AM EDT 0.5 mg HYDROmorphone (Dilaudid) injection 0.5 mg 0.5 mg, Intravenous, Every 2 hour PRN, Starting on Tue05/18/24 at 1242, Until Tue05/25/24 at 1014, Routine, severe pain Given 05/25/2024 8:06 AM EDT 0.5 mg Given 05/25/2024 6:06 AM EDT 0.5 mg Given 05/25/2024 4:24 AM EDT 0.5 mg HYDROmorphone (Dilaudid) injection 0.5 mg 0.5 mg, Intravenous, Once, 1 dose, On Tue05/23/24 at 2015, Routine Given 05/23/2024 7:45 PM EDT 0.5 mg HYDROmorphone (Dilaudid) injection 0.5 mg 0.5 mg, Intravenous, Every 2 hour PRN, Starting on Tue05/25/24 at 1013, Until Tue05/29/24 at 0908, Routine, mild - moderate pain Given 05/28/2024 9:18 AM EDT 0.5 mg Given 05/28/2024 12:26 AM EDT 0.5 mg Given 05/27/2024 4:08 PM EDT 0.5 mg HYDROmorphone (Dilaudid) injection 0.5 mg 0.5 mg, Intravenous, Every 2 hour PRN, Starting on Tue05/29/24 at 0907, Until Tue06/13/24 at 1213, Routine, moderate pain, refractory to PO oxycodone Given 06/13/2024 4:16 AM EDT 0.5 mg Given 06/12/2024 9:14 PM EDT 0.5 mg Given 06/12/2024 4:54 PM EDT 0.5 mg HYDROmorphone (Dilaudid) injection 0.5 mg 0.5 mg, Intravenous, Every 4 hours PRN, Starting on Tue06/13/24 at 1213, Until Emily 06/14/24 at 0824, Routine, moderate pain, refractory to PO oxycodone Given 06/14/2024 4:42 AM EDT 0.5 mg Given 06/13/2024 11:35 PM EDT 0.5 mg Given 06/13/2024 3:36 PM EDT 0.5 mg HYDROmorphone (Dilaudid) injection 0.5 mg 0.5 mg, Intravenous, Once, 1 dose, On Emily 06/14/24 at 2330, Routine Given 06/14/2024 11:01 PM EDT 0.5 mg HYDROmorphone (Dilaudid) injection 0.5 mg 0.5 mg, Intravenous, Once, 1 dose, On 06/16/24 at 1115, Routine Given 06/16/2024 10:33 AM EDT 0.5 mg HYDROmorphone (Dilaudid) injection 0.5 mg 0.5 mg, Intravenous, Once, 1 dose, On 06/16/24 at 2145, Routine Given 06/16/2024 9:35 PM EDT 0.5 mg HYDROmorphone (Dilaudid) injection 1 mg 1 mg, Intravenous, Every 2 hour PRN, Starting on Tue05/25/24 at 1013, Until Tue05/29/24 at 0908, Routine, severe pain Given 05/28/2024 5:02 PM EDT 1 mg Given 05/27/2024 4:36 AM EDT 1 mg Given 05/27/2024 12:15 AM EDT 1 mg HYDROmorphone (Dilaudid) injection 1 mg 1 mg, Intravenous, Every 2 hour PRN, Starting on Tue05/29/24 at 0907, Until Tue06/13/24 at 1213, Routine, severe pain, refractory to PO oxycodone Given 06/13/2024 9:23 AM EDT 1 mg Given 06/11/2024 5:46 PM EDT 1 mg Given 06/11/2024 12:48 PM EDT 1 mg HYDROmorphone (Dilaudid) injection 1 mg 1 mg, Intravenous, Every 4 hours PRN, Starting on Tue06/13/24 at 1213, Until Tue06/14/24 at 0824, Routine, severe pain, refractory to PO oxycodone Given 06/13/2024 7:34 PM EDT 1 mg hydrOXYzine HCl (Atarax) tablet 25 mg 25 mg, Oral, Every 6 hours PRN, Starting on Tue05/01/24 at 2314, Until Tue05/10/24 at 1223, Routine, anxiety Given 05/09/2024 9:36 PM EDT 25 mg Given 05/09/2024 10:25 AM EDT 25 mg Given 05/09/2024 4:31 AM EDT 25 mg hydrOXYzine HCl (Atarax) tablet 25 mg 25 mg, Nasogastric, Every 6 hours PRN, Starting on Tue05/10/24 at 1222, Until Tue05/11/24 at 1648, Routine, Recovery(Phase II-Outpatient)/On Unit(Inpatient), anxiety Given 05/11/2024 1:02 AM EDT 2 5 mg hydrOXYzine HCl (Atarax) tablet 25 mg 25 mg, Oral, Every 6 hours PRN, Starting on Tue05/11/24 at 1648, Until Tue05/15/24 at 0831, Routine, Recovery(Phase II-Outpatient)/On Unit(Inpatient), anxiety Given 05/15/2024 4:24 AM EDT 25 mg Given 05/14/2024 9:44 PM EDT 25 mg Given 05/14/2024 1:47 PM EDT 25 mg hydrOXYzine HCl (Atarax) tablet 25 mg 25 mg, Oral, Nightly, First dose (after last modification) on Tue05/15/24 at 2100, Until Discontinued, Routine, Recovery(Phase II-Outpatient)/On Unit(Inpatient) Given 05/16/2024 10:03 PM EDT 25 mg Given 05/15/2024 8:40 PM EDT 25 mg hydrOXYzine HCl (Atarax) tablet 50 mg 50 mg, Oral, Every 6 hours PRN, Starting on Tue05/17/24 at 1100, Until Tue05/18/24 at 0504, Routine, Recovery(Phase II-Outpatient)/On Unit(Inpatient), anxiety Given 05/17/2024 11:27 AM EDT 50 mg hydrOXYzine pamoate (Vistaril) capsule 25 mg 25 mg, Oral, Every 6 hours PRN, Starting on 06/03/24 at 1021, Until Emily 06/21/24 at 1741, Routine, anxiety Given 06/21/2024 1:33 PM EDT 25 mg Given 06/19/2024 7:58 PM EDT 25 mg Given 06/19/2024 11:37 AM EDT 25 mg insulin regular (HumuLIN R,NovoLIN R) 100 UNIT/ML injection 5 Units 5 Units, Intravenous, Once, 1 dose, On 05/07/24 at 2300, RoutineIndications:Hyperkalemia Given 05/07/2024 10:41 PM EDT 5 Units iohexol (OMNIPaque) 300 MG/ML injection 100 mL 100 mL, Intravenous, Once in imaging, 1 dose, Starting on Tue05/18/24 at 0207, Until Tue05/18/24 at 0209, Routine, Imaging Protocol Orders Given 05/18/2024 2:09 AM EDT 100 mL iohexol (OMNIPaque) 300 MG/ML injection 100 mL 100 mL, Intravenous, Once in imaging, 1 dose, Starting on Tue05/23/24 at 0149, Until Tue05/23/24 at 0150, Routine, Imaging Protocol Orders Given 05/23/2024 1:50 AM EDT 100 mL iohexol (OMNIPaque) 300 MG/ML injection 100 mL 100 mL, Intravenous, Once in imaging, 1 dose, Starting on Tue06/01/24 at 1603, Until Tue06/01/24 at 1607, Routine, Imaging Protocol Orders Given 06/01/2024 4:07 PM EDT 100 mL iohexol (OMNIPaque) 350 MG/ML injection 500 mL 500 mL, Other, Once in imaging, 1 dose, Starting on Tue05/18/24 at 1027, Until Tue05/18/24 at 1118, Routine, Imaging Protocol Orders Given 05/18/2024 11:18 AM EDT 100 mL iohexol (OMNIPaque) 9 MG/ML oral contrast 500 mL 500 mL, Oral, Once in imaging, 1 dose, Starting on 05/12/24 at 0822, Until 05/12/24 at 1015, Routine, Imaging Protocol Orders Given 05/12/2024 10:15 AM EDT 500 mL iohexol (OMNIPaque) 9 MG/ML oral contrast 500 mL 500 mL, Oral, Once in imaging, 1 dose, Starting on Tue05/22/24 at 2209, Until Tue05/23/24 at 0038, Routine, Imaging Protocol Orders Given 05/23/2024 12:38 AM EDT 500 mL iohexol (OMNIPaque) 9 MG/ML oral contrast 500 mL 500 mL, Oral, Once in imaging, 1 dose, Starting on Tue06/01/24 at 0905, Until Tue06/01/24 at 1603, Routine, Imaging Protocol Orders Given 06/01/2024 4:03 PM EDT 500 mL ipratropium-albuterol (Duo-Neb) 0.5-2.5 mg/3 mL nebulizer solution 3 mL 3 mL, Nebulization, Every 6 hours RT, First dose on Tue05/07/24 at 0815, Until Discontinued, Routine Given 05/15/2024 8:19 AM EDT 3 mL Given 05/15/2024 3:34 AM EDT 3 mL Given 05/14/2024 8:20 PM EDT 3 mL ipratropium-albuterol (Duo-Neb) 0.5-2.5 mg/3 mL nebulizer solution 3 mL 3 mL, Nebulization, Every 6 hours PRN, Starting on Tue05/15/24 at 0900, Until Tue06/21/24 at 1741, Routine, wheezing, shortness of breath Given 05/17/2024 3:51 PM EDT 3 mL ipratropium-albuterol (Duo-Neb) 0.5-2.5 mg/3 mL nebulizer solution 3 mL 3 mL, Nebulization, Every 6 hours RT, First dose on Tue05/16/24 at 1030, Until Discontinued, Routine Given 05/17/2024 4:18 AM EDT 3 mL Given 05/16/2024 8:46 PM EDT 3 mL Given 05/16/2024 2:40 PM EDT 3 mL isosorbide mononitrate ER (Imdur) 24 hr tablet 30 mg 30 mg, Oral, Daily, First dose on Tue05/02/24 at 1300, Until Discontinued, Routine Given 05/06/2024 8:02 AM EDT 30 mg Given 05/05/2024 8:02 AM EDT 30 mg Given 05/04/2024 9:15 AM EDT 30 mg ketamine (Ketalar) 5.9 mg in sodium chloride 0.9 % 50 mL IVPB 5.9 mg (rounded from 5.86 mg = 0.1 mg/kg 58.6 kg), Intravenous, Every 8 hours, First dose on Tue05/25/24 at 1100, Until Discontinued, at 222.4 mL/hr, Administer over 15 Minutes, Routine New Bag 05/26/2024 12:08 PM EDT 5.9 mg 222.4 mL/hr Rate/Dose Verify 05/26/2024 5:00 AM EDT 222.4 m L/hr New Bag 05/26/2024 2:56 AM EDT 5.9 mg 222.4 mL/hr ketorolac (Toradol) injection 15 mg 15 mg, Intravenous, Every 6 hours PRN, 3 doses, Starting on Tue05/23/24 at 2127, Until Tue05/24/24 at 1040, Routine, moderate pain Given 05/24/2024 3:18 AM EDT 15 mg ketorolac (Toradol) injection 30 mg 30 mg, Intravenous, Once, 1 dose, On Tue05/23/24 at 2015, Routine Given 05/23/2024 7:46 PM EDT 30 mg lactated Ringer's bolus 250 mL 250 mL, Intravenous, Once, 1 dose, On Tue05/13/24 at 1745, Administer over 2 Hours, Routine Rate/Dose Verify 05/13/2024 7:00 PM EDT 125 mL/hr Rate/Dose Verify 05/13/2024 6:00 PM EDT 125 mL/ hr New Bag 05/13/2024 5:17 PM EDT 250 mL 125 mL/hr lactulose (Chronulac) 10 GM/15ML solution 20 g 20 g, Oral, 2 times daily, First dose on Tue06/14/24 at 0900, Until Discontinued, Routine Given 06/21/2024 10:24 AM EDT 20 g Given 06/20/2024 8:41 PM EDT 20 g Given 06/20/2024 8:20 AM EDT 20 g lidocaine (Lidoderm) 5 % patch 2 patch 2 patch, Apply externally, Every 24 hours, First dose on Tue05/11/24 at 0115, Until Discontinued, Administer over 12 Hours, Routine Medication Applied 05/14/2024 3:24 AM EDT 2 patches Chest Medication Applied 05/12/2024 2:13 AM EDT 2 patches Chest Medication Applied 05/11/2024 1:02 AM EDT 2 patches Chest lidocaine (Lidoderm) 5 % patch 2 patch 2 patch, Apply externally, Every 24 hours, First dose on 05/26/24 at 1515, Until Discontinued, Administer over 12 Hours, Routine Medication Applied 06/20/2024 5:59 PM EDT 2 patches Back Medication Applied 06/19/2024 2:34 PM EDT 2 patches Back Medication Applied 06/18/2024 2:22 PM EDT 2 patches Other lidocaine (Xylocaine) 1 % injection Intradermal, As needed, Starting on Tue06/04/24 at 1002, Until Tue06/04/24 at 1002, Routine, Intraprocedure Given 06/04/2024 10:02 AM EDT 5 mL Left Upper Abdomen LORazepam (Ativan) injection 1 mg 1 mg, Intravenous, Once, 1 dose, On Tue05/15/24 at 2200, Routine Given 05/15/2024 9:17 PM EDT 1 mg magnesium oxide (Mag-Ox) tablet 400 mg 400 mg, Oral, Once, 1 dose, On Tue06/17/24 at 0800, Routine Given 06/17/2024 9:28 AM EDT 400 mg magnesium sulfate IVPB 2 g 2 g, Intravenous, Once, 1 dose, On 05/12/24 at 0845, Routine Rate/Dose Verify 05/12/2024 10:00 AM EDT 25 mL/hr Rate/Dose Verify 05/12/2024 9:00 AM EDT 25 mL/h r New Bag 05/12/2024 8:05 AM EDT 2 g 25 mL/hr magnesium sulfate IVPB 2 g 2 g, Intravenous, Once, 1 dose, On Emily 05/17/24 at 1900, at 25 mL/hr, Administer over 2 Hours, Routine Rate/Dose Verify 05/17/2024 9:00 PM EDT 25 mL/hr Rate/Dose Verify 05/17/2024 8:00 PM EDT 25 mL/h r New Bag 05/17/2024 7:58 PM EDT 2 g 25 mL/hr magnesium sulfate IVPB 2 g 2 g, Intravenous, Once, 1 dose, On Tue05/19/24 at 1600, at 25 mL/hr, Administer over 2 Hours, Routine New Bag 05/19/2024 4:26 PM EDT 2 g 25 mL/hr magnesium sulfate IVPB 2 g 2 g, Intravenous, Once, 1 dose, On Tue05/24/24 at 0030, at 25 mL/hr, Administer over 2 Hours, Routine Rate/Dose Verify 05/24/2024 2:00 AM EDT 25 mL/hr Rate/Dose Verify 05/24/2024 1:00 AM EDT 25 mL/h r New Bag 05/24/2024 12:55 AM EDT 2 g 25 mL/hr magnesium sulfate IVPB 2 g 2 g, Intravenous, Once, 1 dose, On Tue06/10/24 at 0700, at 25 mL/hr, Administer over 2 Hours, Routine New Bag 06/10/2024 6:37 AM EDT 2 g 25 mL/hr magnesium sulfate IVPB 2 g 2 g, Intravenous, Once, 1 dose, On Tue06/14/24 at 0500, at 25 mL/hr, Administer over 2 Hours, Routine New Bag 06/14/2024 4:45 AM EDT 2 g 25 mL/hr magnesium sulfate IVPB 2 g 2 g, Intravenous, Once, 1 dose, On Tue06/18/24 at 0445, at 25 mL/hr, Administer over 2 Hours, Routine New Bag 06/18/2024 4:39 AM EDT 2 g 25 mL/hr magnesium sulfate IVPB 2 g 2 g, Intravenous, Once, 1 dose, On Tue06/19/24 at 1800, Routine New Bag 06/19/2024 6:19 PM EDT 2 g 25 mL/h r magnesium sulfate IVPB 2 g 2 g, Intravenous, Once, 1 dose, On Tue06/21/24 at 0530, at 25 mL/hr, Administer over 2 Hours, Routine New Bag 06/21/2024 5:52 AM EDT 2 g 25 mL/hr magnesium sulfate IVPB 4 g 4 g, Intravenous, Once, 1 dose, On Tue05/19/24 at 2015, Routine New Bag 05/19/2024 8:07 PM EDT 4 g 25 mL/h r magnesium sulfate IVPB 4 g 4 g, Intravenous, Once, 1 dose, On Tue06/15/24 at 0700, Routine New Bag 06/15/2024 6:52 AM EDT 4 g 25 mL/h r melatonin tablet 6 mg 6 mg, Oral, Nightly, First dose on Emily 05/03/24 at 2100, Until Discontinued, Routine Given 05/09/2024 9:35 PM EDT 6 mg Given 05/08/2024 8:29 PM EDT 6 mg Given 05/07/2024 8:33 PM EDT 6 mg melatonin tablet 6 mg 6 mg, Nasogastric, Nightly, First dose (after last modification) on Tue05/10/24 at 2100, Until Discontinued, Routine, Recovery(Phase II-Outpatient)/On Unit(Inpatient) Given 05/10/2024 8:37 PM EDT 6 mg melatonin tablet 6 mg 6 mg, Oral, Nightly, First dose (after last modification) on Tue05/11/24 at 2100, Until Discontinued, Routine, Recovery(Phase II-Outpatient)/On Unit(Inpatient) Given 05/17/2024 9:00 PM EDT 6 mg Given 05/16/2024 10:02 PM EDT 6 mg Given 05/15/2024 8:41 PM EDT 6 mg melatonin tablet 6 mg 6 mg, Oral, Nightly, First dose on Tue05/29/24 at 2100, Until Discontinued, Routine Given 06/20/2024 8:42 PM EDT 6 mg Given 06/19/2024 8:02 PM EDT 6 mg Given 06/18/2024 9:14 PM EDT 6 mg methocarbamol (Robaxin) injection 1,000 mg 1,000 mg, Intravenous, Every 8 hours PRN, Starting on Tue05/22/24 at 2218, Until Tue05/25/24 at 2217, Routine, muscle spasms Given 05/25/2024 9:25 AM EDT 1,00 0 mg Given 05/24/2024 5:32 PM EDT 1,000 mg Given 05/24/2024 8:19 AM EDT 1,000 mg methocarbamol (Robaxin) injection 1,000 mg 1,000 mg, Intravenous, Every 8 hours, 6 doses, First dose on 05/26/24 at 1515, Last dose on Tue05/28/24 at 0715, Routine Given 05/27/2024 6:19 AM EDT 1,000 mg Given 05/26/2024 11:04 PM EDT 1,000 mg Given 05/26/2024 3:02 PM EDT 1,000 mg methocarbamol (Robaxin) injection 760 mg 760 mg (rounded from 750 mg), Intravenous, Once, 1 dose, On 05/12/24 at 1615, Routine Given 05/12/2024 3:50 PM EDT 760 mg methocarbamol (Robaxin) tablet 1,000 mg 1,000 mg, Oral, 4 times daily, First dose (after last modification) on 06/16/24 at 2200, Until Discontinued, Routine Given 06/21/2024 1:02 PM EDT 1,000 mg Given 06/21/2024 10:22 AM EDT 1,000 mg Given 06/20/2024 9:57 PM EDT 1,000 mg methocarbamol (Robaxin) tablet 500 mg 500 mg, Oral, 3 times daily PRN, Starting on Tue05/07/24 at 0846, Until Tue05/08/24 at 0754, Routine, muscle spasms Given 05/07/2024 5:49 PM EDT 500 mg Given 05/07/2024 9:35 AM EDT 500 mg methocarbamol (Robaxin) tablet 500 mg 500 mg, Oral, 4 times daily, First dose on 05/08/24 at 1400, Until Discontinued, Routine, Recovery(Phase II-Outpatient)/On Unit(Inpatient) Given 05/10/2024 8:49 AM EDT 500 mg Given 05/09/2024 9:36 PM EDT 500 mg Given 05/09/2024 1:25 PM EDT 500 mg methocarbamol (Robaxin) tablet 500 mg 500 mg, Nasogastric, 4 times daily, First dose (after last modification) on Emily 05/10/24 at 1400, Until Discontinued, Routine, Recovery(Phase II-Outpatient)/On Unit(Inpatient) Given 05/10/2024 9:56 PM EDT 500 mg Given 05/10/2024 5:42 PM EDT 500 mg Given 05/10/2024 1:26 PM EDT 500 mg methocarbamol (Robaxin) tablet 500 mg 500 mg, Oral, 3 times daily PRN, Starting on Tue05/12/24 at 1421, Until Tue05/18/24 at 0504, Routine, muscle spasms Given 05/17/2024 9:00 PM EDT 500 mg Given 05/17/2024 10:32 AM EDT 500 mg Given 05/15/2024 8:16 AM EDT 500 mg methocarbamol (Robaxin) tablet 500 mg 500 mg, Oral, 3 times daily, First dose on Tue05/27/24 at 1600, Until Discontinued, Routine Given 06/16/2024 3:52 PM EDT 500 mg Given 06/16/2024 9:45 AM EDT 500 mg Given 06/15/2024 8:16 PM EDT 500 mg methocarbamol (Robaxin) tablet 750 mg 750 mg, Nasogastric, 4 times daily, First dose (after last modification) on Tue05/11/24 at 0900, Until Discontinued, Routine, Recovery(Phase II-Outpatient)/On Unit(Inpatient) Given 05/11/2024 2:00 PM EDT 750 mg Given 05/11/2024 8:08 AM EDT 750 mg methocarbamol (Robaxin) tablet 750 mg 750 mg, Oral, 4 times daily, First dose (after last modification) on Tue05/11/24 at 1800, Until Discontinued, Routine, Recovery(Phase II-Outpatient)/On Unit(Inpatient) Given 05/11/2024 9:01 PM EDT 750 mg Given 05/11/2024 5:51 PM EDT 750 mg metoclopramide (Reglan) injection 10 mg 10 mg, Intravenous, Every 6 hours, First dose on Tue05/10/24 at 1300, Until Discontinued, Routine Given 05/11/2024 8:00 PM EDT 10 mg Given 05/11/2024 2:00 PM EDT 10 mg Given 05/11/2024 6:24 AM EDT 10 mg metoclopramide (Reglan) injection 5 mg 5 mg, Intravenous, Every 8 hours, 3 doses, First dose on Tue05/09/24 at 1200, Last dose on Tue05/10/24 at 0400, Routine Given 05/10/2024 3:43 AM EDT 5 mg Given 05/09/2024 11:19 AM EDT 5 mg metoprolol tartrate (Lopressor) injection 2.5 mg 2.5 mg, Intravenous, Every 5 min PRN, 6 doses, Starting on Tue05/12/24 at 0459, Until Tue05/15/24 at 0831, Routine, HR >110 Given 05/12/2024 5:20 AM EDT 2.5 mg metoprolol tartrate (Lopressor) injection 2.5 mg 2.5 mg, Intravenous, Every 6 hours, First dose (after last modification) on Tue05/25/24 at 1615, Until Discontinued, Routine Given 05/26/2024 3:22 AM EDT 2.5 mg Given 05/25/2024 10:30 PM EDT 2.5 mg Given 05/25/2024 4:42 PM EDT 2.5 mg metoprolol tartrate (Lopressor) injection 5 mg 5 mg, Intravenous, Once, 1 dose, On 05/12/24 at 1315, Routine Given 05/12/2024 12:55 PM EDT 5 mg metoprolol tartrate (Lopressor) injection 5 mg 5 mg, Intravenous, Once, 1 dose, On 05/12/24 at 1615, Routine Given 05/12/2024 4:10 PM EDT 5 mg metoprolol tartrate (Lopressor) injection 5 mg 5 mg, Intravenous, Every 6 hours, First dose on Tue05/21/24 at 1015, Until Discontinued, Routine Given 05/25/2024 9:25 AM EDT 5 mg Given 05/25/2024 4:05 AM EDT 5 mg Given 05/24/2024 9:58 PM EDT 5 mg metoprolol tartrate (Lopressor) injection 5 mg 5 mg, Intravenous, Every 6 hours, First dose (after last modification) on 05/26/24 at 1015, Until Discontinued, Routine Given 05/27/2024 10:08 AM EDT 5 mg Given 05/27/2024 4:36 AM EDT 5 mg Given 05/26/2024 11:05 PM EDT 5 mg metoprolol tartrate (Lopressor) split tablet 12.5 mg 12.5 mg, Oral, 2 times daily, First dose on Tue05/02/24 at 0900, Until Discontinued, Routine Given 05/06/2024 8:03 AM EDT 12.5 mg Given 05/05/2024 8:05 PM EDT 12.5 mg Given 05/05/2024 8:02 AM EDT 12.5 mg metoprolol tartrate (Lopressor) split tablet 12.5 mg 12.5 mg, Oral, 2 times daily, First dose on Tue05/07/24 at 1300, Until Discontinued, Routine Given 05/08/2024 9:22 AM EDT 12.5 mg Given 05/07/2024 8:33 PM EDT 12.5 mg Given 05/07/2024 1:34 PM EDT 12.5 mg metoprolol tartrate (Lopressor) split tablet 12.5 mg 12.5 mg, Oral, Once, 1 dose, On Tue05/08/24 at 1515, Routine Given 05/08/2024 4:13 PM EDT 12.5 mg metoprolol tartrate (Lopressor) tablet 25 mg 25 mg, Oral, 2 times daily, First dose (after last modification) on Tue05/08/24 at 2100, Until Discontinued, Routine Given 05/08/2024 8:29 PM EDT 25 mg metoprolol tartrate (Lopressor) tablet 25 mg 25 mg, Oral, 2 times daily, First dose on Tue05/27/24 at 2100, Until Discontinued, Routine Given 06/21/2024 10:22 AM EDT 25 mg Given 06/20/2024 8:42 PM EDT 25 mg Given 06/20/2024 8:20 AM EDT 25 mg metoprolol tartrate (Lopressor) tablet 50 mg 50 mg, Oral, 2 times daily, First dose (after last modification) on Tue05/09/24 at 0915, Until Discontinued, Routine Given 05/10/2024 8:49 AM EDT 50 mg Given 05/09/2024 9:36 PM EDT 50 mg Given 05/09/2024 8:58 AM EDT 50 mg metoprolol tartrate (Lopressor) tablet 50 mg 50 mg, Nasogastric, 2 times daily, First dose (after last modification) on Emily 05/10/24 at 2100, Until Discontinued, Routine, Recovery(Phase II-Outpatient)/On Unit(Inpatient) Given 05/11/2024 8:08 AM EDT 50 mg Given 05/10/2024 8:37 PM EDT 50 mg metoprolol tartrate (Lopressor) tablet 50 mg 50 mg, Oral, 2 times daily, First dose (after last modification) on Tue05/11/24 at 2100, Until Discontinued, Routine, Recovery(Phase II-Outpatient)/On Unit(Inpatient) Given 05/17/2024 9:01 PM EDT 50 mg Given 05/17/2024 10:32 AM EDT 50 mg Given 05/16/2024 10:03 PM EDT 50 mg micafungin (Mycamine) 100 mg in sodium chloride 0.9 % 100 mL IVPB 100 mg, Intravenous, Every 24 hours, First dose on Tue05/18/24 at 0530, Until Discontinued, at 120 mL/hr, Administer over 60 Minutes, Routine Given 05/22/2024 5:03 AM EDT 100 m g 120 mL/hr Given 05/21/2024 5:56 AM EDT 100 mg 120 mL/hr Given 05/20/2024 4:54 AM EDT 100 mg 120 mL/hr midazolam (Versed) injection Intravenous, As needed, Starting on Tue06/04/24 at 1000, Until Tue06/04/24 at 1009, Routine, Intraprocedure Given 06/04/2024 10:09 AM EDT 0.5 mg Given 06/04/2024 10:00 AM EDT 0.5 mg moisturizing mouth (Biotene Dry Mouth) solution 15 mL 15 mL, Swish & Spit, As needed, Starting on Tue06/07/24 at 1645, Until Emily 06/21/24 at 1741, Routine, dry mouth Given 06/07/2024 5:59 PM EDT 15 mL morphine PF 4 mg 4 mg, Intravenous, Every 30 min PRN, Starting on Tue05/06/24 at 2040, Until Tue05/06/24 at 2145, Routine, Recovery(Phase II-Outpatient)/On Unit(Inpatient), pain scale 7-10 Given 05/06/2024 9:14 PM EDT 4 mg mupirocin (Bactroban) 2 % ointment 1 Application Each Nostril, 2 times daily, 10 doses, First dose on Tue05/06/24 at 2130, Last dose on Tue05/11/24 at 0900, Routine Given 05/11/2024 8:08 AM EDT 1 Application Given 05/10/2024 8:37 PM EDT 1 Application Given 05/10/2024 9:09 AM EDT 1 Application nitroglycerin (Tridil) 50 mg in 250 mL D5W (200 mcg/mL) infusion 0.2-2 mcg/kg/min 61.1 kg (3.666-36.66 mL/hr, rounded to 3.67-36.66 mL/hr), 200 mcg/mL, Intravenous, Titrated, Starting on Tue05/06/24 at 2230, Until Tue05/07/24 at 0724, STAT Rate/Dose Change 05/06/2024 11:20 PM EDT 0.2 mcg/kg/min 3.67 mL/hr Rate/Dose Verify 05/06/2024 11:00 PM EDT 0.4 mcg/kg/min 7. 33 mL/hr Rate/Dose Verify 05/06/2024 10:00 PM EDT 0.6 mcg/kg/min 11 mL/hr nystatin (Mycostatin) 624081 UNIT/ML suspension 400,000 Units 400,000 Units (4 mL), Swish & Swallow, 4 times daily, 23 doses, First dose (after last modification) on Tue05/14/24 at 1400, Last dose on Tue05/19/24 at 2200, Routine Given 05/18/2024 1:00 PM EDT 400,000 Units Given 05/18/2024 8:43 AM EDT 400,000 Units Given 05/17/2024 9:00 PM EDT 400,000 Units nystatin (Mycostatin) [id number] UNIT/ML suspension 500,000 Units 500,000 Units (5 mL), Swish & Swallow, 2 times daily, First dose on Tue05/13/24 at 1200, Until Discontinued, Routine Given 05/14/2024 8:09 AM EDT 500,000 Units Given 05/13/2024 9:33 PM EDT 500,000 Units Given 05/13/2024 12:19 PM EDT 500,000 Units ondansetron (Zofran) 4 MG/2ML injection - Pyxis Override Pull 1 dose, Starting on Tue05/11/24 at 2305, Until 05/12/24 at 0024 ondansetron (Zofran) injection 4 mg 4 mg, Intravenous, Every 6 hours PRN, Starting on 05/06/24 at 2040, Until Tue05/09/24 at 1103, Routine, Recovery(Phase II-Outpatient)/On Unit(Inpatient), nausea, vomiting Given 05/09/2024 8:55 AM EDT 4 mg Given 05/08/2024 12:39 PM EDT 4 mg Given 05/07/2024 6:00 PM EDT 4 mg ondansetron (Zofran) injection 4 mg 4 mg, Intravenous, Once, 1 dose, On 05/12/24 at 0015, Routine Given 05/12/2024 12:24 AM EDT 4 mg ondansetron (Zofran) injection 4 mg 4 mg, Intravenous, Every 6 hours PRN, Starting on 05/19/24 at 1257, Until Emily 06/21/24 at 1741, Routine, vomiting, nausea Given 06/21/2024 1:02 PM EDT 4 mg Given 06/20/2024 8:41 PM EDT 4 mg Given 06/20/2024 8:19 AM EDT 4 mg ondansetron ODT (Zofran-ODT) disintegrating tablet 4 mg 4 mg, Oral, Once, 1 dose, On Tue05/15/24 at 2200, Routine Given 05/15/2024 9:16 PM EDT 4 mg oxyCODONE (Roxicodone) immediate release tablet 10 mg 10 mg, Oral, Every 6 hours PRN, Starting on Tue05/07/24 at 1719, Until Tue05/08/24 at 0611, Routine, severe pain Given 05/08/2024 2:19 AM EDT 10 mg Given 05/07/2024 7:52 PM EDT 10 mg oxyCODONE (Roxicodone) immediate release tablet 10 mg 10 mg, Oral, Every 6 hours PRN, Starting on Tue05/28/24 at 0905, Until Tue06/13/24 at 1213, Routine, severe pain Given 06/13/2024 6:23 AM EDT 10 mg Given 06/13/2024 12:20 AM EDT 10 mg Given 06/12/2024 6:22 PM EDT 10 mg oxyCODONE (Roxicodone) immediate release tablet 10 mg 10 mg, Oral, Every 4 hours PRN, Starting on Tue06/13/24 at 1212, Until Tue06/18/24 at 0903, Routine, severe pain Given 06/18/2024 2:28 AM EDT 10 mg Given 06/17/2024 9:28 AM EDT 10 mg Given 06/17/2024 3:48 AM EDT 10 mg oxyCODONE (Roxicodone) immediate release tablet 5 mg 5 mg, Oral, Every 6 hours PRN, Starting on Tue05/07/24 at 0846, Until Tue05/07/24 at 1720, Routine, moderate pain Given 05/07/2024 2:52 PM EDT 5 mg Given 05/07/2024 9:36 AM EDT 5 mg oxyCODONE (Roxicodone) immediate release tablet 5 mg 5 mg, Oral, Once, 1 dose, On Tue05/09/24 at 1000, Routine Given 05/09/2024 9:34 AM EDT 5 mg oxyCODONE (Roxicodone) immediate release tablet 5 mg 5 mg, Oral, Every 6 hours scheduled, First dose on Tue05/26/24 at 1800, Until Discontinued, Routine Given 05/28/2024 6:26 AM EDT 5 mg Given 05/28/2024 12:18 AM EDT 5 mg Given 05/27/2024 6:36 PM EDT 5 mg oxyCODONE (Roxicodone) immediate release tablet 5 mg 5 mg, Oral, Every 6 hours PRN, Starting on Tue05/28/24 at 0905, Until Tue06/13/24 at 1213, Routine, moderate pain Given 06/08/2024 2:06 AM EDT 5 mg Given 06/07/2024 2:13 AM EDT 5 mg Given 05/30/2024 8:09 PM EDT 5 mg oxyCODONE (Roxicodone) immediate release tablet 5 mg 5 mg, Oral, Every 4 hours PRN, Starting on Tue06/13/24 at 1212, Until Tue06/18/24 at 0903, Routine, moderate pain Given 06/17/2024 6:22 PM EDT 5 mg Given 06/17/2024 1:50 PM EDT 5 mg oxyCODONE (Roxicodone) immediate release tablet 5 mg 5 mg, Oral, Every 8 hours PRN, Starting on Tue06/18/24 at 0902, Until Tue06/19/24 at 0848, Routine, moderate pain Given 06/18/2024 9:15 PM EDT 5 mg Given 06/18/2024 11:35 AM EDT 5 mg oxyCODONE (Roxicodone) immediate release tablet 5 mg 5 mg, Oral, Daily PRN, Starting on Tue06/19/24 at 0851, Until Tue06/20/24 at 1513, Routine, Prior to wound vac changes only Given 06/20/2024 10:38 AM EDT 5 mg oxyCODONE (Roxicodone) immediate release tablet 5 mg 5 mg, Oral, Once, 1 dose, On Tue06/20/24 at 0915, Routine Given 06/20/2024 8:45 AM EDT 5 mg oxyCODONE (Roxicodone) immediate release tablet 5 mg 5 mg, Oral, Every 8 hours PRN, Starting on Tue06/20/24 at 1512, Until Tue06/21/24 at 1741, Routine, severe pain Given 06/21/2024 10:51 AM EDT 5 mg Given 06/21/2024 2:51 AM EDT 5 mg pantoprazole (Protonix) EC tablet 40 mg 40 mg, Oral, Daily, First dose on Tue05/02/24 at 0900, Until Discontinued, Routine Given 05/06/2024 8:02 AM EDT 40 mg Given 05/05/2024 8:02 AM EDT 40 mg Given 05/04/2024 9:15 AM EDT 40 mg pantoprazole (Protonix) EC tablet 40 mg 40 mg, Oral, Daily, First dose on Tue05/31/24 at 0900, Until Discontinued, Routine Given 06/21/2024 10:22 AM EDT 40 mg Given 06/20/2024 8:20 AM EDT 40 mg Given 06/19/2024 9:06 AM EDT 40 mg pantoprazole (Protonix) injection 40 mg 40 mg, Intravenous, Daily, First dose on Tue05/16/24 at 1000, Until Discontinued, Routine Given 05/19/2024 9:06 AM EDT 40 mg Given 05/18/2024 8:43 AM EDT 40 mg Given 05/17/2024 10:31 AM EDT 40 mg pantoprazole (Protonix) injection 40 mg 40 mg, Intravenous, 2 times daily, First dose (after last modification) on [place] 05/20/24 at 0900, Until Discontinued, Routine Given 05/27/2024 10:00 AM EDT 40 mg Given 05/26/2024 8:20 PM EDT 40 mg Given 05/26/2024 8:54 AM EDT 40 mg phenol (Chloraseptic) 1.4 % mouth/throat spray 1 spray 1 spray, Mouth/Throat, Every 2 hour PRN, sore throat, Instruct patient to spit out after 15 seconds., Starting on Emily 05/17/24 at 1628 Given 05/18/2024 12:48 PM EDT 1 spray piperacillin-tazobactam (Zosyn) 4.5 g in sodium chloride 0.9% 100 mL IVPB (vial adapter required) 4.5 g, Intravenous, Every 6 hours, 42 doses, First dose on [facility] 05/17/24 at 1530, Last dose on [place] 05/27/24 at 2130, Routine New Bag 05/27/2024 8:30 PM EDT 4.5 g 36 .7 mL/hr Bag 05/27/2024 3:43 PM EDT 4.5 g 36.7 mL/hr 05/27/2024 10:08 AM EDT 4.5 g 36.7 mL/hr piperacillin-tazobactam (Zosyn) 4.5 g in sodium chloride 0.9% 100 mL IVPB (vial adapter required) 4.5 g, Intravenous, Every 6 hours, 29 doses, First dose on Tue06/01/24 at 1845, Last dose on Tue06/08/24 at 1845, Routine New Bag 06/08/2024 1:01 PM EDT 4.5 g 36.7 mL/hr New Bag 06/08/2024 5:45 AM EDT 4.5 g 36.7 mL/hr New Bag 06/07/2024 11:56 PM EDT 4.5 g 36.7 mL/hr piperacillin-tazobactam (Zosyn) 4.5 g in sodium chloride 0.9% 100 mL IVPB (vial adapter required) 4.5 g, Intravenous, Every 6 hours, 1 dose, First dose (after last reorder) on Tue06/08/24 at 2200, Routine New Bag 06/08/2024 9:43 PM EDT 4.5 g 36.7 mL/hr polyethylene glycol (Miralax) packet 17 g 17 g, Oral, Daily, First dose (after last modification) on 05/07/24 at 0900, Until Discontinued, Routine, Recovery(Phase II-Outpatient)/On Unit(Inpatient) Given 05/10/2024 8:49 AM EDT 17 g Given 05/09/2024 8:59 AM EDT 17 g polyethylene glycol (Miralax) packet 17 g 17 g, Nasogastric, Daily, First dose (after last modification) on Tue05/11/24 at 0900, Until Discontinued, Routine, Recovery(Phase II-Outpatient)/On Unit(Inpatient) Given 05/11/2024 8:08 AM EDT 17 g polyethylene glycol (Miralax) packet 17 g 17 g, Oral, Daily, First dose (after last modification) on 05/12/24 at 0900, Until Discontinued, Routine, Recovery(Phase II-Outpatient)/On Unit(Inpatient) Given 05/17/2024 10:33 AM EDT 17 g Given 05/16/2024 8:47 AM EDT 17 g Given 05/15/2024 8:14 AM EDT 17 g polyethylene glycol (Miralax) packet 17 g 17 g, Oral, Daily, First dose on Emily 06/14/24 at 1100, Until Discontinued, Routine Given 06/21/2024 10:23 AM EDT 17 g Given 06/19/2024 9:05 AM EDT 17 g Given 06/18/2024 9:13 AM EDT 17 g potassium chloride (Klor-Con) packet 20 mEq 20 mEq, Oral, Once, 1 dose, On Tue05/16/24 at 0630, Routine Given 05/16/2024 6:08 AM EDT 20 mEq potassium chloride (Klor-Con) packet 20 mEq 20 mEq, Oral, Once, 1 dose, On Tue06/19/24 at 1945, Routine Given 06/19/2024 7:58 PM EDT 20 mEq potassium chloride (Klor-Con) packet 40 mEq 40 mEq, Nasogastric, Once, 1 dose, On Tue05/11/24 at 0430, Routine Given 05/11/2024 4:14 AM EDT 40 mEq potassium chloride (Klor-Con) packet 40 mEq 40 mEq, Oral, Every 4 hours, 2 doses, First dose on Tue05/15/24 at 0400, Last dose on Tue05/15/24 at 0800, Routine Given 05/15/2024 8:15 AM EDT 40 mEq Given 05/15/2024 4:24 AM EDT 40 mEq potassium chloride (Klor-Con) packet 40 mEq 40 mEq, Oral, Once, 1 dose, On Tue05/16/24 at 0515, Routine Given 05/16/2024 5:17 AM EDT 40 mEq potassium chloride (Klor-Con) packet 40 mEq 40 mEq, Oral, Once, 1 dose, On Tue06/19/24 at 1830, Routine Given 06/19/2024 6:20 PM EDT 40 mEq potassium chloride 10 mEq in sodium chloride 0.9 % 1,000 mL infusion 50 mL/hr, Intravenous, Continuous, Starting on Tue05/16/24 at 1030, Until Tue05/17/24 at 0837, Routine New Bag 05/17/2024 5:24 AM EDT 50 mL/h r 50 mL/hr Rate/Dose Verify 05/16/2024 3:00 PM EDT 50 mL/hr 50 mL/h r Rate/Dose Verify 05/16/2024 2:00 PM EDT 50 mL/hr 50 mL/h r potassium chloride CR (Klor-Con) ER tablet 20 mEq 20 mEq, Oral, Once, 1 dose, On Tue05/04/24 at 0545, Routine Given 05/04/2024 5:12 AM EDT 20 mEq potassium chloride CR (Klor-Con) ER tablet 20 mEq 20 mEq, Oral, Once, 1 dose, On Tue05/31/24 at 1100, Routine Given 05/31/2024 12:43 PM EDT 20 mEq potassium chloride CR (Klor-Con) ER tablet 20 mEq 20 mEq, Oral, Once, 1 dose, On Tue06/08/24 at 1115, Routine Given 06/08/2024 12:58 PM EDT 20 mEq potassium chloride CR (Klor-Con) ER tablet 30 mEq 30 mEq, Oral, Once, 1 dose, On Tue06/03/24 at 0930, Routine Given 06/03/2024 9:59 AM EDT 30 mEq potassium chloride CR (Klor-Con) ER tablet 40 mEq 40 mEq, Oral, Once, 1 dose, On Tue05/04/24 at 0430, Routine Given 05/04/2024 4:14 AM EDT 40 mEq potassium chloride CR (Klor-Con) ER tablet 40 mEq 40 mEq, Oral, Once, 1 dose, On Tue06/08/24 at 1000, Routine Given 06/08/2024 10:55 AM EDT 40 mEq potassium chloride CR (Klor-Con) ER tablet 40 mEq 40 mEq, Oral, Once, 1 dose, On Tue06/12/24 at 0800, Routine Given 06/12/2024 8:19 AM EDT 40 mEq potassium chloride CR (Klor-Con) ER tablet 40 mEq 40 mEq, Oral, Once, 1 dose, On Emily 06/14/24 at 0800, Routine Given 06/14/2024 8:32 AM EDT 40 mEq potassium chloride CR (Klor-Con) ER tablet 40 mEq 40 mEq, Oral, Once, 1 dose, On 06/16/24 at 0800, Routine Given 06/16/2024 10:21 AM EDT 40 mEq potassium chloride IVPB 10 mEq 10 mEq, Intravenous, Every 1 hour, 4 doses, First dose on 05/12/24 at 0200, Last dose on Tue05/12/24 at 0500, RoutineIndications:Hypokale himanshu Rate/Dose Verify 05/12/2024 6:00 AM EDT 100 mL/hr New Bag 05/12/2024 5:25 AM EDT 10 mEq 100 mL/hr Rate/Dose Verify 05/12/2024 5:00 AM EDT 100 mL/ hr potassium chloride IVPB 10 mEq 10 mEq, Intravenous, Every 1 hour, 4 doses, First dose on 05/12/24 at 1500, Last dose on Tue05/12/24 at 1800, RoutineIndications:Hypokalemia Rate/Dose Verify 05/12/2024 7:00 PM EDT 100 mL/hr New Bag 05/12/2024 6:22 PM EDT 10 mEq 100 mL/hr Rate/Dose Verify 05/12/2024 6:00 PM EDT 100 mL/ hr potassium chloride IVPB 10 mEq 10 mEq, Intravenous, Every 1 hour, 4 doses, First dose on Tue05/13/24 at 0815, Last dose on Tue05/13/24 at 1115, RoutineIndications:Hypokalemia Rate/Dose Verify 05/13/2024 1:00 PM EDT 100 mL/hr New Bag 05/13/2024 12:19 PM EDT 10 mEq 100 mL/hr Rate/Dose Verify 05/13/2024 12:00 PM EDT 100 mL /hr potassium chloride IVPB 10 mEq 10 mEq, Intravenous, Every 1 hour, 2 doses, First dose on Tue05/20/24 at 2045, Last dose on Tue05/20/24 at 2145, RoutineIndications:Hypokalemia Rate/Dose Verify 05/20/2024 10:00 PM EDT 100 mL/hr New Bag 05/20/2024 9:22 PM EDT 10 mEq 100 mL/hr Rate/Dose Verify 05/20/2024 9:00 PM EDT 100 mL/ hr potassium chloride IVPB 10 mEq 10 mEq, Intravenous, Every 1 hour, 2 doses, First dose on Tue05/21/24 at 0815, Last dose on Tue05/21/24 at 0915, RoutineIndications:Hypokalemia Rate/Dose Verify 05/21/2024 10:00 AM EDT 100 mL/hr New Bag 05/21/2024 9:59 AM EDT 10 mEq 100 mL/hr Rate/Dose Verify 05/21/2024 9:00 AM EDT 100 mL/ hr potassium chloride IVPB 20 mEq 20 mEq, Intravenous, Once, 1 dose, On 05/19/24 at 0600, RoutineIndications:Hypokale himanshu New Bag 05/19/2024 5:21 AM EDT 20 mEq 50 mL/hr potassium phosphates 9 mmol in sodium chloride 0.9 % 250 mL infusion 253 mL, Intravenous, Once, 1 dose, On Tue05/21/24 at 0130, Administer over 1.5 Hours, Routine Rate/Dose Verify 05/21/2024 3:00 AM EDT 185.3 mL/hr New Bag 05/21/2024 2:11 AM EDT 9 mmol 185.3 mL/hr potassium phosphates 9 mmol in sodium chloride 0.9 % 250 mL infusion 253 mL, Intravenous, Once, 1 dose, On 05/21/24 at 1530, Administer over 1.5 Hours, Routine New Bag 05/21/2024 3:39 PM EDT 9 mmol 185.3 mL/hr Povidone-Iodine 5 % swab solution 1 Application Nasal, Once, 1 dose, On Tue05/06/24 at 1000, Routine Given 05/06/2024 9:03 AM EDT 1 Application primidone (Mysoline) tablet 50 mg 50 mg, Oral, 2 times daily, First dose on Emily 05/03/24 at 0915, Until Discontinued, Routine Given 05/10/2024 8:49 AM EDT 50 mg Given 05/09/2024 9:34 PM EDT 50 mg Given 05/09/2024 8:59 AM EDT 50 mg primidone (Mysoline) tablet 50 mg 50 mg, Nasogastric, 2 times daily, First dose (after last modification) on Emily 05/10/24 at 2100, Until Discontinued, Routine, Recovery(Phase II-Outpatient)/On Unit(Inpatient) Given 05/11/2024 8:08 AM EDT 50 mg Given 05/10/2024 8:38 PM EDT 50 mg primidone (Mysoline) tablet 50 mg 50 mg, Oral, 2 times daily, First dose (after last modification) on Tue05/11/24 at 2100, Until Discontinued, Routine, Recovery(Phase II-Outpatient)/On Unit(Inpatient) Given 05/17/2024 9:00 PM EDT 50 mg Given 05/17/2024 10:31 AM EDT 50 mg Given 05/16/2024 10:07 PM EDT 50 mg primidone (Mysoline) tablet 50 mg 50 mg, Oral, 2 times daily, First dose on Tue05/27/24 at 1245, Until Discontinued, Routine Given 06/21/2024 10:2 2 AM EDT 50 mg Given 06/20/2024 8:45 PM EDT 50 mg Given 06/20/2024 8:20 AM EDT 50 mg prochlorperazine (Compazine) injection 2.5 mg 2.5 mg, Intravenous, Once as needed, 1 dose, Starting on Tue05/08/24 at 1333, Until Tue05/09/24 at 1050, Routine, nausea, vomiting Given 05/09/2024 10:50 AM EDT 2.5 mg prochlorperazine (Compazine) injection 2.5 mg 2.5 mg, Intravenous, Once, 1 dose, On Tue05/10/24 at 1000, Routine Given 05/10/2024 10:20 AM EDT 2.5 mg promethazine (Phenergan) 6.25 MG/5ML solution 12.5 mg 12.5 mg, Nasogastric, Every 6 hours PRN, Starting on Tue05/15/24 at 2103, Until Tue05/18/24 at 0504, Routine, nausea, vomiting Given 05/16/2024 6:08 AM EDT 12 .5 mg promethazine (Phenergan) 6.25 MG/5ML solution 25 mg 25 mg, Oral, Every 4 hours PRN, Starting on Tue06/18/24 at 1821, Until Emily 06/21/24 at 1741, Routine, nausea, vomiting promethazine (Phenergan) suppository 25 mg 25 mg, Rectal, Every 4 hours PRN, Starting on Tue06/18/24 at 1821, Until Emily 06/21/24 at 1741, Routine, nausea, vomiting promethazine (Phenergan) tablet 12.5 mg 12.5 mg, Nasogastric, Every 6 hours PRN, Starting on Tue05/15/24 at 2103, Until Tue05/18/24 at 0504, Routine, nausea, vomiting Given 05/17/2024 9:41 PM EDT 12 .5 mg Given 05/17/2024 10:31 AM EDT 12.5 mg promethazine (Phenergan) tablet 12.5 mg 12.5 mg, Oral, Every 6 hours PRN, Starting on 06/09/24 at 1310, Until 06/17/24 at 0659, Routine, nausea, vomiting Given 06/14/2024 12:01 PM EDT 12.5 mg Given 06/14/2024 2:30 AM EDT 12.5 mg Given 06/13/2024 8:26 PM EDT 12.5 mg promethazine (Phenergan) tablet 25 mg 25 mg, Oral, Every 4 hours PRN, Starting on Tue06/18/24 at 1821, Until Tue06/21/24 at 1741, Routine, nausea, vomiting Given 06/20/2024 1:10 AM EDT 25 mg Given 06/18/2024 6:27 PM EDT 25 mg rosuvastatin (Crestor) tablet 40 mg 40 mg, Oral, Nightly, First dose on 05/28/24 at 2100, Until Discontinued, Routine Given 06/20/2024 8:42 PM EDT 40 mg Given 06/19/2024 8:02 PM EDT 40 mg Given 06/18/2024 9:14 PM EDT 40 mg senna (Senokot) tablet 17.2 mg 17.2 mg, Oral, Nightly, First dose on Tue05/06/24 at 2130, Until Discontinued, Routine, Recovery(Phase II-Outpatient)/On Unit(Inpatient) Given 05/09/2024 9:35 PM EDT 17.2 mg Given 05/07/2024 8:33 PM EDT 17.2 mg senna (Senokot) tablet 17.2 mg 17.2 mg, Nasogastric, Nightly, First dose (after last modification) on Emily 05/10/24 at 2100, Until Discontinued, Routine, Recovery(Phase II-Outpatient)/On Unit(Inpatient) Given 05/10/2024 8:38 PM EDT 17.2 mg senna (Senokot) tablet 17.2 mg 17.2 mg, Oral, Nightly, First dose (after last modification) on Tue05/11/24 at 2100, Until Discontinued, Routine, Recovery(Phase II-Outpatient)/On Unit(Inpatient) Given 05/17/2024 9:18 PM EDT 17.2 mg Given 05/16/2024 10:02 PM EDT 17.2 mg Given 05/15/2024 8:41 PM EDT 17.2 mg simethicone (Mylicon) chewable tablet 120 mg 120 mg, Oral, Every 6 hours PRN, Starting on Tue05/29/24 at 1608, Until Tue06/20/24 at 1515, Routine, flatulence Given 06/19/2024 10:43 PM EDT 120 mg Given 06/19/2024 12:16 PM EDT 120 mg Given 06/14/2024 7:59 AM EDT 120 mg simethicone (Mylicon) chewable tablet 120 mg 120 mg, Oral, 4 times daily, First dose (after last modification) on Tue06/20/24 at 1800, Until Discontinued, Routine Given 06/21/2024 1:02 PM EDT 120 mg Given 06/21/2024 10:22 AM EDT 120 mg Given 06/20/2024 9:58 PM EDT 120 mg simethicone (Mylicon) chewable tablet 80 mg 80 mg, Oral, 4 times daily, 12 doses, First dose on Tue05/09/24 at 1400, Last dose on Tue05/12/24 at 0900, Routine Given 05/10/2024 8:49 AM EDT 80 mg Given 05/09/2024 9:36 PM EDT 80 mg Given 05/09/2024 1:25 PM EDT 80 mg simethicone (Mylicon) chewable tablet 80 mg 80 mg, Nasogastric, 4 times daily, 12 doses, First dose (after last modification) on Tue05/10/24 at 1400, Last dose on Tue05/13/24 at 0900, Routine, Recovery(Phase II-Outpatient)/On Unit(Inpatient) Given 05/11/2024 2:00 PM EDT 80 mg Given 05/11/2024 8:08 AM EDT 80 mg Given 05/10/2024 9:56 PM EDT 80 mg simethicone (Mylicon) chewable tablet 80 mg 80 mg, Oral, 4 times daily, 13 doses, First dose (after last modification) on Tue05/11/24 at 1800, Last dose on Tue05/14/24 at 1800, Routine, Recovery(Phase II-Outpatient)/On Unit(Inpatient) Given 05/14/2024 5:26 PM EDT 80 mg Given 05/14/2024 1:47 PM EDT 80 mg Given 05/14/2024 8:09 AM EDT 80 mg simethicone (Mylicon) chewable tablet 80 mg 80 mg, Oral, Every 6 hours PRN, Starting on Tue05/27/24 at 2033, Until Tue05/29/24 at 1608, Routine, flatulence Given 05/29/2024 12:12 PM EDT 80 mg Given 05/28/2024 4:28 AM EDT 80 mg Given 05/27/2024 8:36 PM EDT 80 mg sodium chloride ([place]) 0.65 % nasal spray 1 spray 1 spray, Each Nostril, As needed, Starting on Tue06/01/24 at 2206, Until Tue06/21/24 at 1741, Routine, congestion Given 06/16/2024 10:22 AM EDT 1 spray Given 06/14/2024 8:31 AM EDT 1 spray Given 06/13/2024 8:35 AM EDT 1 spray sodium chloride 0.9 % bolus 250 mL 250 mL, Intravenous, Once, 1 dose, On Tue05/07/24 at 0330, Administer over 15 Minutes, Routine New Bag 05/07/2024 3:09 AM EDT 250 mL 1000 mL/hr sodium chloride 0.9 % bolus 250 mL 250 mL, Intravenous, Once, 1 dose, On Tue05/07/24 at 0430, Administer over 15 Minutes, Routine New Bag 05/07/2024 3:40 AM EDT 250 mL 1000 mL/hr sodium chloride 0.9 % bolus 250 mL 250 mL, Intravenous, Once, 1 dose, On Tue05/07/24 at 0515, Administer over 15 Minutes, Routine New Bag 05/07/2024 4:38 AM EDT 250 mL 1000 mL/hr sodium chloride 0.9 % bolus 250 mL 250 mL, Intravenous, Once, 1 dose, On Tue05/07/24 at 0800, Administer over 15 Minutes, Routine New Bag 05/07/2024 7:04 AM EDT 250 mL 1000 mL/hr sodium chloride 0.9 % bolus 250 mL 250 mL, Intravenous, Once, 1 dose, On Tue05/07/24 at 1330, Administer over 15 Minutes, Routine Rate/Dose Verify 05/07/2024 3:00 PM EDT 1000 mL/hr Rate/Dose Verify 05/07/2024 2:00 PM EDT 1000 mL /hr Restarted 05/07/2024 1:53 PM EDT 1000 mL/hr sodium chloride 0.9 % bolus 250 mL 250 mL, Intravenous, Once, 1 dose, On Tue05/07/24 at 2300, Administer over 15 Minutes, Routine New Bag 05/07/2024 10:17 PM EDT 250 mL 1000 mL/hr sodium chloride 0.9 % flush 10 mL 10 mL, Intravenous, Every 12 hours, First dose on Tue05/02/24 at 0000, Until Discontinued, Routine Given 05/06/2024 12:08 AM EDT 10 mL Given 05/05/2024 1:03 AM EDT 10 mL Given 05/04/2024 11:52 AM EDT 10 mL sodium chloride 0.9 % flush 10 mL 10 mL, Intravenous, Every 12 hours, First dose on Tue05/19/24 at 0215, Until Discontinued, Routine Given 06/21/2024 1:33 PM EDT 10 mL Given 06/21/2024 2:52 AM EDT 10 mL Given 06/20/2024 2:00 PM EDT 10 mL sodium chloride 0.9 % flush 10 mL 10 mL, Intravenous, Every 1 hour PRN, Starting on Tue05/19/24 at 0120, Until Tue06/11/24 at 0645, Routine, Flush Before and After EVERY dose of medication. Given 06/07/2024 8:06 AM EDT 10 mL sodium chloride 0.9 % flush 10 mL 10 mL, Intravenous, Every 12 hours, First dose on Tue06/04/24 at 0915, Until Discontinued, Routine, Holding - Preprocedure Given 06/13/2024 8:29 PM EDT 10 mL Given 06/13/2024 8:36 AM EDT 10 mL Given 06/12/2024 9:23 PM EDT 10 mL sodium zirconium cyclosilicate (Lokelma) packet 10 g 10 g, Oral, Once, 1 dose, On Tue05/07/24 at 2300, Routine Given 05/07/2024 10:43 PM EDT 10 g thiamine (Vitamin B1) injection 200 mg 200 mg, Intravenous, Every 12 hours, 2 doses, First dose on Tue05/19/24 at 2100, Last dose on Tue05/20/24 at 0900, Routine Given 05/20/2024 9:22 AM EDT 200 mg Given 05/19/2024 8:07 PM EDT 200 mg traMADol (Ultram) tablet 50 mg 50 mg, Oral, Once, 1 dose, On Tue06/20/24 at 0515, Routine Given 06/20/2024 4:29 AM EDT 50 mg traZODone (Desyrel) tablet 50 mg 50 mg, Oral, Once, 1 dose, On Tue06/16/24 at 0000, Routine Given 06/15/2024 11:24 PM EDT 50 mg traZODone (Desyrel) tablet 50 mg 50 mg, Oral, Once, 1 dose, On 06/16/24 at 2100, Routine Given 06/16/2024 8:52 PM EDT 50 mg traZODone (Desyrel) tablet 50 mg 50 mg, Oral, Nightly PRN, Starting on 06/17/24 at 2016, Until Emily 06/21/24 at 1741, Routine, sleep Given 06/20/2024 9:56 PM EDT 50 mg Given 06/19/2024 7:58 PM EDT 50 mg Given 06/18/2024 9:14 PM EDT 50 mg documented in this encounter Active and Recently Administered Medications Times are shown in EDT. Scheduled Medication Order 06/19/2024 06/20/2024 06/21/2024 acetaminophen (Tylenol) tablet 1,000 mg 1,000 mg, Oral, Every 6 hours scheduled, First dose (after last modification) on 06/17/24 at 0745, Until Discontinued, Routine 0520 (Given - Provider: Julian Jimenez)1137 (Given - Provider: Ashwin Odom RN)1701 (Given - Provider: Ashwin Odom RN)2335 (Not Given - Provider: Brunilda Dawson RN - Reason: Patient/family refused) 0537 (Given - Provider: Brunilda Dawson RN)1305 (Not Given - Provider: Aleshia Curiel RN - Reason: Patient/family refused)1758 (Given - Provider: Aleshia Curiel RN) 0102 (Given - Provider: Corinne Fuentes RN - Comment: per pt request)0555 (Not Given - Provider: Corinne Fuentes, KRISTINA - Reason: Patient/family refused)1302 (Given - Provider: Zander Villeda RN) aspirin chewable tablet 81 mg 81 mg, Oral, Daily, First dose on 05/26/24 at 1630, Until Discontinued, Routine 0906 (Given - Provider: Ashwin Odom RN) 0820 (Given - Provider: Aleshia Curiel RN) 1022 (Given - Provider: Amy Sultana RN - Comment: pt sleeping, wanted to wait) buPROPion XL (Wellbutrin XL) 24 hr tablet 300 mg(Linked Group 1) 300 mg, Oral, Daily, First dose on Emily 05/31/24 at 0900, Until Discontinued, Routine 09 (Given - Provider: Ashwin Odom RN) 0820 (Given - Provider: Aleshia Curiel, KRISTINA) 1022 (Given - Provider: Amy Sultana RN - Comment: pt sleeping, wanted to wait) citalopram (CeleXA) tablet 40 mg 40 mg, Oral, Daily, First dose on 05/27/24 at 1245, Until Discontinued, Routine 09 (Given - Provider: Ashwin Odom RN) 0820 (Given - Provider: Aleshia Curiel RN) 1023 (Given - Provider: Amy Sultana RN - Comment: pt sleeping, wanted to wait) dronabinol (Marinol) capsule 2.5 mg 2.5 mg, Oral, 2 times daily before meals, First dose on 06/09/24 at 1700, Until Discontinued, Routine 0810 (Given - Provider: Ashwin Odom RN)1701 (Given - Provider: Ashwin Odom RN) 0845 (Given - Provider: Aleshia Curiel RN)1758 (Given - Provider: Aleshia Curiel RN) 1022 (Given - Provider: Amy Sultana RN - Comment: pt sleeping, wanted to wait)1700 (Canceled Entry - Provider: Automatic Discharge Provider - Comment: Automatically canceled at discontinue of medication order) enoxaparin (Lovenox) syringe 40 mg 40 mg, Subcutaneous, Daily, First dose on 06/10/24 at 2100, Until Discontinued, Routine 0905 (Given - Provider: Ashwin Odom RN) 0820 (Given - Provider: Aleshia Curiel RN) 1023 (Given - Provider: Amy Sultana RN - Comment: pt sleeping, wanted to wait) lactulose (Chronulac) 10 GM/15ML solution 20 g 20 g, Oral, 2 times daily, First dose on Emily 06/14/24 at 0900, Until Discontinued, Routine 09 (Given - Provider: Ashwin Odom, KRISTINA)2000 (Given - Provider: Brunilda Dawson, KRISTINA) 0820 (Given - Provider: Aleshia Curiel, KRISTINA)2040 (Given - Provider: Corinne Fuentes, KRISTINA) 1024 (Given - Provider: Amy Sultana RN) lidocaine (Lidoderm) 5 % patch 2 patch 2 patch, Apply externally, Every 24 hours, First dose on 05/26/24 at 1515, Until Discontinued, Administer over 12 Hours, Routine 0122 (Medication Removed - Provider: Julian Jimenez)1434 (Medication Applied - Provider: Ashwin Odom RN) 0216 (Medication Removed - Provider: Brunilda Dawson, KRISTINA)1759 (Medication Applied - Provider: Aleshia Curiel RN) 0547 (Medication Removed - Provider: Corinne Fuentes RN)1515 (Canceled Entry - Provider: Automatic Discharge Provider - Comment: Automatically canceled at discontinue of medication order) magnesium sulfate IVPB 2 g (COMPLETED) 2 g, Intravenous, Once, 1 dose, On Tue06/19/24 at 1800, Routine 1819 (New Bag - Provider: Ashwin Odom RN) magnesium sulfate IVPB 2 g (COMPLETED) 2 g, Intravenous, Once, 1 dose, On Emily 06/21/24 at 0530, at 25 mL/hr, Administer over 2 Hours, Routine 0552 (New Bag - Provider: Corinne Fuentes RN) melatonin tablet 6 mg 6 mg, Oral, Nightly, First dose on Tue05/29/24 at 2100, Until Discontinued, Routine 2001 (Given - Provider: Brunilda Dawson RN) 2041 (Given - Provider: Corinne Fuentes, KRISTINA) methocarbamol (Robaxin) tablet 1,000 mg 1,000 mg, Oral, 4 times daily, First dose (after last modification) on 06/16/24 at 2200, Until Discontinued, Routine 0906 (Given - Provider: Ashwin Odom RN)1434 (Given - Provider: Ashwin Odom RN)1701 (Given - Provider: Ashwin Odom RN)2114 (Given - Provider: Brunilda Dawson RN) 0819 (Given - Provider: Aleshia Curiel RN)1306 (Not Given - Provider: Aleshia Curiel RN - Reason: Patient/family refused)1759 (Given - Provider: Aleshia Curiel RN)215 (Given - Provider: Corinne Fuentes, KRISTINA) 1022 (Given - Provider: Amy Sultana RN - Comment: pt sleeping, wanted to wait)1302 (Given - Provider: Zander Villeda RN) metoprolol tartrate (Lopressor) tablet 25 mg 25 mg, Oral, 2 times daily, First dose on Tue05/27/24 at 2100, Until Discontinued, Routine 0906 (Given - Provider: Ashwin Odom RN)2000 (Given - Provider: Brunilda Dawson RN) 0820 (Given - Provider: Aleshia Curiel RN)204 (Given - Provider: Corinne Fuentes, KRISTINA) 1022 (Given - Provider: Amy Sultana RN - Comment: pt sleeping, wanted to wait) oxyCODONE (Roxicodone) immediate release tablet 5 mg (COMPLETED) 5 mg, Oral, Once, 1 dose, On Tue06/20/24 at 0915, Routine 0845 (Given - Provider: Aleshia Curiel RN) pantoprazole (Protonix) EC tablet 40 mg 40 mg, Oral, Daily, First dose on Tue05/31/24 at 0900, Until Discontinued, Routine 0906 (Given - Provider: Ashwin Odom RN) 0820 (Given - Provider: Aleshia Curiel RN) 1022 (Given - Provider: Amy Sultana RN - Comment: pt sleeping, wanted to wait) polyethylene glycol (Miralax) packet 17 g 17 g, Oral, Daily, First dose on Tue06/14/24 at 1100, Until Discontinued, Routine 0905 (Given - Provider: Ashwin Odom RN) 0827 (Not Given - Provider: Aleshia Curiel RN - Reason: Patient/family refused) 1023 (Given - Provider: Amy Sultana, KRISTINA - Comment: pt sleeping, wanted to wait) potassium chloride (Klor-Con) packet 20 mEq (COMPLETED)(Linked Group 2) 20 mEq, Oral, Once, 1 dose, On Tue06/19/24 at 1945, Routine 1958 (Given - Provider: Brunilda Dawson, KRISTINA) potassium chloride (Klor-Con) packet 40 mEq (COMPLETED)(Linked Group 2) 40 mEq, Oral, Once, 1 dose, On Tue06/19/24 at 1830, Routine 1820 (Given - Provider: Ashwin Odom, KRISTINA) primidone (Mysoline) tablet 50 mg 50 mg, Oral, 2 times daily, First dose on Tue05/27/24 at 1245, Until Discontinued, Routine 09 (Given - Provider: Ashwin Odom, KRISTINA)2000 (Given - Provider: Brunilda Dawson, KRISTINA) 08 (Given - Provider: Aleshia Curiel RN)2044 (Given - Provider: Corinne Fuentes, KRISTINA) 102 (Given - Provider: Amy Sultana, RN - Comment: pt sleeping, wanted to wait) rosuvastatin (Crestor) tablet 40 mg 40 mg, Oral, Nightly, First dose on Tue05/28/24 at 2100, Until Discontinued, Routine 2001 (Given - Provider: Brunilda Dawson RN) 2041 (Given - Provider: Corinne Fuentes, KRISTINA) simethicone (Mylicon) chewable tablet 120 mg 120 mg, Oral, 4 times daily, First dose (after last modification) on Tue06/20/24 at 1800, Until Discontinued, Routine 1758 (Given - Provider: Aleshia Curiel, KRISTINA)2158 (Given - Provider: Corinne Fuentes, KRISTINA) 1022 (Given - Provider: Amy Sultana, RN - Comment: pt sleeping, wanted to wait)1302 (Given - Provider: Zander Villeda, KRISTINA) sodium chloride 0.9 % flush 10 mL 10 mL, Intravenous, Every 12 hours, First dose on Tue05/19/24 at 0215, Until Discontinued, Routine 0122 (Canceled Entry - Provider: Julian Jimenez)1438 (Given - Provider: Ashwin Odom, KRISTINA) 0216 (Given - Provider: Brunilda Dawson, KRISTINA)1400 (Given - Provider: Aleshia Curiel RN) 0252 (Given - Provider: Corinne Fuentes, KRISTINA)133 (Given - Provider: Amy Corbett Doctor, RN) traMADol (Ultram) tablet 50 mg (COMPLETED) 50 mg, Oral, Once, 1 dose, On Tue06/20/24 at 0515, Routine 0429 (Given - Provider: Millie Michael, KRISTINA) PRN Medication Order 06/19/2024 06/20/2024 06/21/2024 benzocaine-menthol (Chloraseptic) 6-10 MG lozenge 1 lozenge 1 lozenge, Mouth/Throat, Every 4 hours PRN, Starting on Tue05/14/24 at 2012, Until Tue06/21/24 at 1741, Routine, sore throat bisacodyl (Dulcolax) EC tablet 10 mg 10 mg, Oral, Daily PRN, Starting on Tue06/14/24 at 0729, Until Tue06/21/24 at 1741, Routine, constipation calcium carbonate (Tums) chewable tablet 500 mg 500 mg, Oral, 4 times daily PRN, Starting on Tue05/31/24 at 1019, Until Tue06/21/24 at 1741, Routine, indigestion, heartburn hydrOXYzine pamoate (Vistaril) capsule 25 mg 25 mg, Oral, Every 6 hours PRN, Starting on Tue06/03/24 at 1021, Until Emily 06/21/24 at 1741, Routine, anxiety 1137 (Given - Provider: Ashwin Odom, KRISTINA)1957 (Given - Provider: Brunilda Dawson, KRISTINA) 2033 (Not Given - Provider: Corinne Fuentes, KRISTINA - Reason: Patient/family refused) 133 (Given - Provider: Amy Corbett Doctor, RN) ipratropium-albuterol (Duo-Neb) 0.5-2.5 mg/3 mL nebulizer solution 3 mL 3 mL, Nebulization, Every 6 hours PRN, Starting on Tue05/15/24 at 0900, Until Tue06/21/24 at 1741, Routine, wheezing, shortness of breath moisturizing mouth (Biotene Dry Mouth) solution 15 mL 15 mL, Swish & Spit, As needed, Starting on Tue06/07/24 at 1645, Until Emily 06/21/24 at 1741, Routine, dry mouth ondansetron (Zofran) injection 4 mg(Linked Group 3) 4 mg, Intravenous, Every 6 hours PRN, Starting on 05/19/24 at 1257, Until Emliy 06/21/24 at 1741, Routine, vomiting, nausea 1954 (Given - Provider: Brunilda Dawson, KRISTINA) 0819 (Given - Provider: Aleshia Curiel RN)2041 (Given - Provider: Corinne Fuentes, KRISTINA) 1302 (Given - Provider: Zander Villeda RN) oxyCODONE (Roxicodone) immediate release tablet 5 mg (CANCELED) 5 mg, Oral, Daily PRN, Starting on Tue06/19/24 at 0851, Until Tue06/20/24 at 1513, Routine, Prior to wound vac changes only 1038 (Given - Provider: Aleshia Curiel, KRISTINA) oxyCODONE (Roxicodone) immediate release tablet 5 mg 5 mg, Oral, Every 8 hours PRN, Starting on Tue06/20/24 at 1512, Until Emily 06/21/24 at 1741, Routine, severe pain 0251 (Given - Provider: Corinne Fuentes, KRISTINA)1051 (Given - Provider: Amy Sultana RN) promethazine (Phenergan) 6.25 MG/5ML solution 25 mg(Linked Group 4) 25 mg, Oral, Every 4 hours PRN, Starting on 06/18/24 at 1821, Until Emily 06/21/24 at 1741, Routine, nausea, vomiting 0110 (See Alternative - Provider: Brunilda Dawson, KRISTINA) promethazine (Phenergan) suppository 25 mg(Linked Group 4) 25 mg, Rectal, Every 4 hours PRN, Starting on 06/18/24 at 1821, Until Emily 06/21/24 at 1741, Routine, nausea, vomiting 0110 (See Alternative - Provider: Brunilda Dawson, KRISTINA) promethazine (Phenergan) tablet 25 mg(Linked Group 4) 25 mg, Oral, Every 4 hours PRN, Starting on 06/18/24 at 1821, Until Emily 06/21/24 at 1741, Routine, nausea, vomiting 0110 (Given - Provider: Brunilda Dawson, KRISTINA) simethicone (Mylicon) chewable tablet 120 mg (CANCELED) 120 mg, Oral, Every 6 hours PRN, Starting on Tue05/29/24 at 1608, Until Tue06/20/24 at 1515, Routine, flatulence 1216 (Given - Provider: Ashwin Odom RN)2243 (Given - Provider: Brunilda Dawson RN) sodium chloride ([place]) 0.65 % nasal spray 1 spray 1 spray, Each Nostril, As needed, Starting on Tue06/01/24 at 2206, Until Emily 06/21/24 at 1741, Routine, congestion traZODone (Desyrel) tablet 50 mg 50 mg, Oral, Nightly PRN, Starting on Tue06/17/24 at 2016, Until Tue06/21/24 at 1741, Routine, sleep 1958 (Given - Provider: Brunilda Dawson RN) 2034 (Not Given - Provider: Corinne Fuentes RN - Reason: Patient/family refused)215 (Given - Provider: Corinne Fuentes RN) Linked Groups Order Group 1: buPROPion (Wellbutrin) tablet 150 mg () 150 mg, Oral, 2 times daily, 1 dose, First dose (after last modification) on Tue05/30/24 at 2100, Routine Followed by buPROPion XL (Wellbutrin XL) 24 hr tablet 300 mgJump to med 300 mg, Oral, Daily, First dose on Tue05/31/24 at 0900, Until Discontinued, Routine Group 2: potassium chloride (Klor-Con) packet 40 mEq (COMPLETED)Jump to med 40 mEq, Oral, Once, 1 dose, On Tue06/19/24 at 1830, Routine Followed by potassium chloride (Klor-Con) packet 20 mEq (COMPLETED)Jump to med 20 mEq, Oral, Once, 1 dose, On Tue06/19/24 at 1945, Routine Group 3: ondansetron ODT (Zofran-ODT) disintegrating tablet 4 mg (CANCELED) 4 mg, Oral, Every 6 hours PRN, Starting on 05/19/24 at 1257, Until 05/19/24 at 1301, Routine, nausea, vomiting Or ondansetron (Zofran) injection 4 mgJump to med 4 mg, Intravenous, Every 6 hours PRN, Starting on 05/19/24 at 1257, Until Emily 06/21/24 at 1741, Routine, vomiting, nausea Or ondansetron (Zofran) 4 MG/5ML solution 4 mg (CANCELED) 4 mg, Oral, Every 6 hours PRN, Starting on 05/19/24 at 1257, Until 05/19/24 at 1301, Routine, nausea, vomiting Group 4: promethazine (Phenergan) tablet 25 mgJump to med 25 mg, Oral, Every 4 hours PRN, Starting on 06/18/24 at 1821, Until Emily 06/21/24 at 1741, Routine, nausea, vomiting Or promethazine (Phenergan) 6.25 MG/5ML solution 25 mgJump to med 25 mg, Oral, Every 4 hours PRN, Starting on 06/18/24 at 1821, Until Emily 06/21/24 at 1741, Routine, nausea, vomiting Or promethazine (Phenergan) suppository 25 mgJump to med 25 mg, Rectal, Every 4 hours PRN, Starting on 06/18/24 at 1821, Until Emily 06/21/24 at 1741, Routine, nausea, vomiting documented in this encounter Additional Health Concerns Infection Onset Date Last Indicated Resolved Time COVID-19 Rule-Out 05/13/2024 05/13/2024 05/14/2024 12:24 PM EDT Respiratory Rule-Out 05/13/2024 05/13/2024 025 2:56 AM EDT C. difficile Rule-Out 05/18/2024 05/18/20242024 2:09 AM EDT Gastrointestinal Rule-Out 05/18/2024 05/18/2024 2:10 AM EDT Assessment Noted Time A fall risk assessment has been complete d for the patient 06/28/2023 1:56 PM EDT A Body Mass Index follow-up plan has been documented for the patient 06/21/2024 1:40 PM EDT documented as of this encounter Care Teams Pressure Control Supervisor Relationship Specialty Start Date End Date Pcp, [place] [address] PCP - General Family Medicine 04/04/24 06/28/24 documented as of this encounter
--- OUTSIDE RECORDS SUMMARY | 2024-05-23 12:31 | XMS_ITS | Encounter Summary ---
Author Organization Healthcare Address [address] [id number] Care Team Providers Care Product Safety Engineer Name Role Phone Pcp, No Primary Care Provider Unavailabl e Reason for Visit * Auth/Cert (Routine) Specialty Diagnoses / Procedures Referred By Contac t Referred To Contact Diagnoses CAD, multiple vessel Acute NSTEMI, Left main stenosis, CAD Edson Mcclure, DO [address] [place] [address] Phone: tel: fax: P[facility] A Inpatient [address] [place] [address] Referral ID Status Reason Start Date Expiration Date Visits Re quested Visits Authorized [id number] 1 1 Encounter Details Date Type Department Care Team (Late st Contact Info) Description 05/23/2024 12:31 PM EDT - 05/23/2024 4:06 PM EDT Surgery [facility] A OPERATING ROOM [address] [place] [id number] Judy Mancuso MD [address] [facility] [address] [place] [address] LAPAROTOMY, EXPLORATORY, possible bowel resection, possible ostomy [10020 (CPT )] Surgery Details Date/Time Status Location OR Service Patient Class Case Class Case Type Trauma Case? 05/23/2024 12:31 PM Posted [facility] GANDHI 2OR 16 General Surgery Inpatient B-Urgent: to be done within 4 hours Panel 1 Procedure [facility] Anes Op Region Wound Class Comments LAPAROTOMY, EXPLORATORY, pos sible bowel resection, possible ostomy N/A General Class I/ Clean Panel 2 Procedure [facility] Anes Op Region Wound Class Comments COLECTOMY, PARTIAL Left Class IV/ D irty or Infected Surgeon Surgeon Role Service Panel Lidia Troncoso MD Primary Colorectal 2 Betty Nino MD Resident - Assisting 1 Judy Mancuso MD Primary General Surgery 1 documented in this encounter Social History Tobacco Use Types Packs/Day Years [...] any time in the past 12 m [facility], were you homeless or living in a jail (including now)? No 05/02/2024 Utilities Answer Date [...] Sign Reading Time Taken Comments Blood Pressure 106/90 05/23/2024 12:00 PM EDT Pulse 106 05/23/2024 12:00 PM EDT Temperature 36.5 C (97.7 F) 05/23/2024 12:00 PM EDT Respiratory Rate 24 05/23/2024 12:00 PM EDT Oxygen Saturation 95% 05/23/2024 12:00 PM EDT Inhaled Oxygen Concentration - - Weight 58.6 kg (129 lb 3 oz) 05/22/2024 6:00 AM EDT Height 154.9 cm (5' 0.98 ) 05/11/2024 4:00 PM ED T Body Mass Index 21.71 06/19/2024 12:00 PM EDT documented in this encounter Functional Status * Calculated C-SSRS Risk Score (Lifetime/Recent) Answer Date of Assessment Author No Risk Indicated 05/23/2024 8:00 AM EDT Tere Bynum RN * Question Answer Date of Assessment Author 1. Wish to be (Past 1 Month) No 025 8:00 AM EDT Tere Bynum RN 2. Non-Specific Active Suici erica Thoughts (Past 1 Month) No 05/23/2024 8:00 AM EDT Vianey Bynum RN 6. Suicidal Behavior (Lifetime) No 8:00 AM EDT Tere Bynum RN documented as of this encounter Discharge Instructions * Discharge Instructions* Stefany Edwards APRN - 06/04/2024 10:49 AM EDT [facility] - Vascular & Interventional Radiology (VIR) *If patient is discharged with IR-placed drain, primary floor/bedside RN to educate patient/family on drain care and provide the following supplies (per drain) to patient at discharge. *If any supply is not available in floor stock, contact Materials [phone]. *Saline flushes can be supplied via Meds [...] the drain. Contact the VIR Clinic at [phone], or discuss at your next follow-up visit. [...] the drain system dry. Follow up with VIR Clinic at [phone] for appointments or questions. Follow the [id number] directions in the [facility] Drain Care handout. [...] Follow up and other appointments with the [facility] First follow-up visit. We will call you to schedule a follow-up visit with the Vascular and Interventional Radiology Clinic. You should be seen in our clinic within 2 weeks after leaving the hospital. If you have not been contacted to schedule this appointment, please contact the VIR Clinic at [phone]. To schedule or reschedule a clinic visit, call [phone]. To reschedule a procedure, call our schedulers at [phone], option 4. [facility] (formerly [facility]) location and phone number Vascular & Interventional Radiology Clinic [facility], 1st floor [address], [address] [place], [place] [id number] In case of emergency For any emergency, please go to the nearest Emergency Room or dial 911. If you have questions or concerns about the drain Tuesday-Tuesday, 8 a.m.-4:30 p.m., call the [facility] Clinic at [phone]. After hours, weekends, and holidays, call [phone]. Ask for the Interventional Radiology provider web content coordinator. Drainage Log You must keep a daily [...] saline. Clamp the tube and then flush [id number] normal saline. Then unclamp the tube to [...] please call our General Surgery Clinic at [phone]. If there are questions or concerns after discharge from the hospital, call Leola Montano, Nurse Coordinator between 7am-3pm at [phone]. If it is after hours, weekends, and holidays please call [phone] and ask for the resident web content coordinator for Emergency General Surgery. Medication requests should be made between the hours of 9:00 AM to 3:00 PM Tuesday thru Tuesday. Please note that based upon recent changes to [place] law related to prescribing opioid pain medications, [...] times a day. 60 tablet 2 06/21/2024 05/08/202 6 primidone (Mysoline) 50 MG tablet Take [...] is complete. Referral will be sent to [facility] to her home, [facility]. She is aware that [facility] will contact her to discuss andschedule. Cardiac [...] rehabilitation program. 2. Eligibility: CABG 3. Exceptions/exclusions: [facility] Cardiac Rehab Exclusions: None 4. Referral: [facility] Cardiac Rehab Referral: Patient will consider participating in a cardiac rehabilitation program. Patient was provided with contact information for the following program(s) for consideration: [facility] [place] - [phone]. 5. Information sent: Information Sent: Appropriate information will be sent to the receiving cardiac rehabilitation program.: * Progress Notes - Annika Perez RN - 06/21/2024 12:44 PM EDT Case Management Discharge Note Rere Hunter 53 y.o. female CSN: [id number] Admission: 05/01/2024 11:01 PM Primary Problem: CAD, multiple vessel Primary Cmm Programmer: Primary Caregiver: Self Assistance Available at Discharge: Availability of Care Givers (#Hours): No assistance needed Family/Cmm Programmer(s) Willingness Assessed to care for patient at home: Yes Family/Cmm Programmer(s) Readiness Assessed to care for patient at [...] Medicare Documentation: Medicare Second Notice?: No Follow-up: [facility] [address], [address] [facility] [address] [facility] Card[facility]ty [facility] [address] [address] Go on 08/02/2024 Your appointment time is 2pm Please arrive 15 minutes early and bring bottles of medications. [facility] Vascular Interventional Radiology [address] [facility] [address] Lidia Troncoso MD [address] [facility] [address] Discharge Transportation: Transportation Anticipated: family or friend will provide Transportation Home at Discharge: Family/Friend will Provide Follow Up Transport: Transportation Needed to Follow up Appoinments: Family/Friend will Provide Additional Comments: Per primary team patient is medically ready for discharge. CM confirmed rollator in room, and that [facility] will deliver her ostomy supplies. Cm sent referral to [facility] for wound dressings, but was denied. Patient has outpatient script for PT/OT. Patient agreeable with discharge plan. No CM/SW needs identified. Family to transport and assist upon discharge. Annika Perez RN * Can Alex - DoctorAmy RN - 06/21/2024 12:27 PM EDT Images from the original note were not included. [id number] Naloxone Nasal [place] Brand Name(s): Kloxxado??, Narcan??, Rezenopy??; also available [...] pharmacist for the instructions or visit the welding specialist's website to get the instructions. You should [...] or doctor for a copy of the welding specialist's information for the patient. Are there OTHER [...] and out of their sight and reach. [email or web address] Unneeded medications should be disposed of in [...] of all of the prescription and nonprescription (qubz-pbs-vuacclw) medicines you are taking, as well as [...] or pharmacist about specific clinical use. The [place] [employer] represents that the information provided hereunder was formulated with a reasonable standard of care, and in conformity with professional standards in the field. The [place] [employer] makes no representations or warranties, express or implied, including, but not limited to, any implied warranty of merchantability and/or fitness for a particular purpose, with respect to such information and specifically disclaims all such warranties. Users are advised that decisions regarding drug therapy are complex medical decisions requiring the independent, informed decision of an appropriate health toddler caregiver, and the information is provided for informational purposes only. The entire monograph for a drug should be reviewed for a thorough understanding of the drug's actions, uses and side effects. The [place] [employer] does not endorse or recommend the use of any drug.The information is not a substitute for medical care. AHFS?? Patient Medication Information?. ?? Copyright, 2023. The [place] [employer]??, [address], [address], [place], [place]. All Rights Reserved. Duplication for commercial use must be authorized by [facility]. Selected Revisions: September 03, 2023. AHFS?? Patient Medication Information?. ?? Copyright, 2024 * Can Alex - Amy Sultana RN - 06/21/2024 12:27 PM EDT Images from the original note were not included. [id number] Simethicone Brand Name(s): Mt?? Anti-Gas, Colic Drops, [...] and out of their sight and reach. [email or web address] Unneeded medications should be disposed of in [...] of all of the prescription and nonprescription (jmdm-qwi-zzuxcqo) medicines you are taking, as well as [...] or pharmacist about specific clinical use. The [place] [employer] represents that the information provided hereunder was formulated with a reasonable standard of care, and in conformity with professional standards in the field. The [place] [employer] makes no representations or warranties, express or implied, including, but not limited to, any implied warranty of merchantability and/or fitness for a particular purpose, with respect to such information and specifically disclaims all such warranties. Users are advised that decisions regarding drug therapy are complex medical decisions requiring the independent, informed decision of an appropriate health toddler caregiver, and the information is provided for informational purposes only. The entire monograph for a drug should be reviewed for a thorough understanding of the drug's actions, uses and side effects. The [place] [employer] does not endorse or recommend the use of any drug.The information is not a substitute for medical care. AHFS?? Patient Medication Information?. ?? Copyright, 2023. The [place] [employer]??, [address], [address], [place], [place]. All Rights Reserved. Duplication for commercial use must be authorized by [facility]. Selected Revisions: March 31, 2017. AHFS?? Patient Medication Information?. ?? Copyright, 2024 * [facility] Amy Sultana RN - 06/21/2024 12:27 PM EDT Images from the original note were not included. [id number] Rosuvastatin Brand Name(s): Crestor??, Ezallor?? Sprinkle??, Roszet?? [...] and out of their sight and reach. [email or web address] Unneeded medications should be disposed of in [...] be awakened, immediately call emergency services at [phone]. What OTHER INFORMATION should I know? Keep [...] of all of the prescription and nonprescription (etna-fyl-hbicxzy) medicines you are taking, as well as [...] or pharmacist about specific clinical use. The [place] [employer] represents that the information provided hereunder was formulated with a reasonable standard of care, and in conformity with professional standards in the field. The [place] [employer] makes no representations or warranties, express or implied, including, but not limited to, any implied warranty of merchantability and/or fitness for a particular purpose, with respect to such information and specifically disclaims all such warranties. Users are advised that decisions regarding drug therapy are complex medical decisions requiring the independent, informed decision of an appropriate health toddler caregiver, and the information is provided for informational purposes only. The entire monograph for a drug should be reviewed for a thorough understanding of the drug's actions, uses and side effects. The [place] [employer] does not endorse or recommend the use of any drug.The information is not a substitute for medical care. AHFS?? Patient Medication Information?. ?? Copyright, 2023. The [place] [employer]??, [address], [address], [place], [place]. All Rights Reserved. Duplication for commercial use must be authorized by [facility]. Selected Revisions: January 29, 2024. AHFS?? Patient Medication Information?. ?? Copyright, 2024 * Can Alex - Amy Sultana RN - 06/21/2024 12:27 PM EDT Images from the original note were not included. [id number] Oxycodone Brand Name(s): Oxaydo?, Oxycontin??, Roxicodone??, Roxybond??, [...] Substance Abuse and Mental Health Services Administration ([facility]) National Helpline at 8-209-841-JOJS. Oxycodone may cause serious or life-threatening breathing [...] doctor or pharmacist will give you the welding specialist's patient information sheet (Medication Guide) when you begin your treatment with oxycodone and each time you fill your prescription. Read theinformation carefully and ask your doctor or pharmacist if you have any questions. You can also visit the Food and Drug Administration (FDA) website (https://www.fda.gov/Drugs/DrugSafety/kyd956318.htm) or the welding specialist's website to obtain the Medication Guide. WHY [...] or herbal products may interact with oxycodone: Bobo's wort and tryptophan. Be sure to let [...] and out of their sight and reach. https://www.[email or web address] What should I do in case of [...] pharmacist for the instructions or visit the welding specialist's website to get the instructions. If symptoms [...] narrowing or widening of the pupils (dark mic[place]ukee in the eye) ?? cold, clammy skin [...] of all of the prescription and nonprescription (vstg-ail-yiwulyf) medicines you are taking, as well as [...] or pharmacist about specific clinical use. The [place] [employer] represents that the information provided hereunder was formulated with a reasonable standard of care, and in conformity with professional standards in the field. The [place] [employer] makes no representations or warranties, express or implied, including, but not limited to, any implied warranty of merchantability and/or fitness for a particular purpose, with respect to such information and specifically disclaims all such warranties. Users are advised that decisions regarding drug therapy are complex medical decisions requiring the independent, informed decision of an appropriate health toddler caregiver, and the information is provided for informational purposes only. The entire monograph for a drug should be reviewed for a thorough understanding of the drug's actions, uses and side effects. The [place] [employer] does not endorse or recommend the use of any drug.The information is not a substitute for medical care. AHFS?? Patient Medication Information?. ?? Copyright, 2023. The [place] [employer]??, [address], [address], [place], [place]. All Rights Reserved. Duplication for commercial use must be authorized by [facility]. Selected Revisions: February 29, 2024. AHFS?? Patient Medication Information?. ?? Copyright, 2024 * Can Alex - Amy Sultana RN - 06/21/2024 12:26 PM EDT Images from the original note were not included. [id number] Metoprolol Brand Name(s): Kapspargo Sprinkle??, Lopressor??, Toprol?, [...] of all of the prescription and nonprescription (sjrk-bzi-dmuvgfv) medicines you are taking, as well as [...] or pharmacist about specific clinical use. The [place] [employer] represents that the information provided hereunder was formulated with a reasonable standard of care, and in conformity with professional standards in the field. The [place] [employer] makes no representations or warranties, express or implied, including, but not limited to, any implied warranty of merchantability and/or fitness for a particular purpose, with respect to such information and specifically disclaims all such warranties. Users are advised that decisions regarding drug therapy are complex medical decisions requiring the independent, informed decision of an appropriate health toddler caregiver, and the information is provided for informational purposes only. The entire monograph for a drug should be reviewed for a thorough understanding of the drug's actions, uses and side effects. The [place] [employer] does not endorse or recommend the use of any drug.The information is not a substitute for medical care. AHFS?? Patient Medication Information?. ?? Copyright, 2023. The [place] [employer]??, [address], [address], [place], [place]. All Rights Reserved. Duplication for commercial use must be authorized by [facility]. Selected Revisions: October 29, 2022. AHFS?? Patient Medication Information?. ?? Copyright, 2024 * Can Alex - Amy Sultana RN - 06/21/2024 12:26 PM EDT Images from the original note were not included. [id number] Methocarbamol Brand Name(s): Robaxin??; also available generically [...] be awakened, immediately call emergency services at 288. What OTHER INFORMATION should I know? Keep all appointments with your doctor. Do not let anyone else take your medication. Ask your pharmacist any questions you have about refilling your prescription. It is important for you to keep a written list of all of the prescription and nonprescription (gdft-epl-jjnpcob) medicines you are taking, as well as [...] or pharmacist about specific clinical use. The [place] [employer] represents that the information provided hereunder was formulated with a reasonable standard of care, and in conformity with professional standards in the field. The [place] [employer] makes no representations or warranties, express or implied, including, but not limited to, any implied warranty of merchantability and/or fitness for a particular purpose, with respect to such information and specifically disclaims all such warranties. Users are advised that decisions regarding drug therapy are complex medical decisions requiring the independent, informed decision of an appropriate health toddler caregiver, and the information is provided for informational purposes only. The entire monograph for a drug should be reviewed for a thorough understanding of the drug's actions, uses and side effects. The [place] [employer] does not endorse or recommend the use of any drug.The information is not a substitute for medical care. AHFS?? Patient Medication Information?. ?? Copyright, 2023. The [place] [employer]??, [address], [address], [place], [place]. All Rights Reserved. Duplication for commercial use must be authorized by [facility]. Selected Revisions: September 28, 2016. AHFS?? Patient Medication Information?. ?? Copyright, 2024 * Can Alex - Amy Sultana RN - 06/21/2024 12:26 PM EDT Images from the original note were not included. [id number] Aspirin Brand Name(s): Acuprin??, Anacin?? Aspirin Regimen, Ascriptin??, Aspergum??, Aspidrox??, Aspir-Mox??, Aspirtab??, Aspir-risa??, Wan?? Aspirin, Bufferin??, Buffex??, Easprin??, Ecotrin??, Empirin??,Entaprin??, Entercote??, Fasprin??, Genacote??, Gennin-FC??, Genprin??, Halfprin??, Magnaprin??, Miniprin??, Minitabs??, Ridiprin??, Sloprin??, Uni-Buff??, Uni-Tren??, Valomag??, Zorprin??, Paula[employer]?? (as a combination product containing Aspirin, Citric Acid, Sodium Bicarbonate), [employer] [employer]??Extra Strength (as a combination product containing Aspirin, Citric Acid, Sodium Bicarbonate), [employer] [employer]?? Morning Relief (as a combination product containing Aspirin, Caffeine), [employer] [employer]?? Plus Flu (as a combination product containing Aspirin, Chlorpheniramine, Dextromethorphan), [employer]-[place] [employer]?? PM (as a combination product containing Aspirin, [...] and out of their sight and reach. [email or web address]://[email or web address] Unneeded medications should be disposed of in [...] services at 911. Symptoms of overdose may include: ?? burning [...] of all of the prescription and nonprescription (qzic-csj-dkgvadx) medicines you are taking, as well as [...] or pharmacist about specific clinical use. The [place] [employer] represents that the information provided hereunder was formulated with a reasonable standard of care, and in conformity with professional standards in the field. The [place] [employer] makes no representations or warranties, express or implied, including, but not limited to, any implied warranty of merchantability and/or fitness for a particular purpose, with respect to such information and specifically disclaims all such warranties. Users are advised that decisions regarding drug therapy are complex medical decisions requiring the independent, informed decision of an appropriate health toddler caregiver, and the information is provided for informational purposes only. The entire monograph for a drug should be reviewed for a thorough understanding of the drug's actions, uses and side effects. The [place] [employer] does not endorse or recommend the use of any drug.The information is not a substitute for medical care. AHFS?? Patient Medication Information?. ?? Copyright, 2023. The [place] [employer]??, [address], [place], [place]. All Rights Reserved. Duplication for commercial use must be authorized by [facility]. Selected Revisions: June 28, 2020. AHFS?? Patient Medication Information?. ?? Copyright2024 * Can Alex - Amy Sultana RN - 06/21/2024 12:26 PM EDT Images from the original note were not included. [id number] Acetaminophen Brand Name(s): Actamin??, Feverall??, Panadol??, Tempra Quicklets??, Tylenol??, Dayquil?? (as a combination product containing Acetaminophen, Dextromethorphan, Pseudoephedrine), NyQuil Cold/Flu Relief?? (as a combination product containing Acetaminophen, Dextromethorphan, Doxylamine), Percocet?? (as a combination product containing Acetaminophen, Oxycodone) APAP, A-nxlpbf-jjro-aminophenol, Paracetamol IMPORTANT WARNING: Taking too much acetaminophen [...] measuring cup or syringe provided by the welding specialist to measure each dose of the solution [...] of all of the prescription and nonprescription (ttcq-ske-gabjkew) medicines you are taking, as well as [...] or pharmacist about specific clinical use. The [place] [employer] represents that the information provided hereunder was formulated with a reasonable standard of care, and in conformity with professional standards in the field. The [place] [employer] makes no representations or warranties, express or implied, including, but not limited to, any implied warranty of merchantability and/or fitness for a particular purpose, with respect to such information and specifically disclaims all such warranties. Users are advised that decisions regarding drug therapy are complex medical decisions requiring the independent, informed decision of an appropriate health toddler caregiver, and the information is provided for informational purposes only. The entire monograph for a drug should be reviewed for a thorough understanding of the drug's actions, uses and side effects. The [place] [employer] does not endorse or recommend the use of any drug.The information is not a substitute for medical care. AHFS?? Patient Medication Information?. ?? Copyright, 2023. The [place] [employer]??, [address], [address], [place], [place]. All Rights Reserved. Duplication for commercial use must be authorized by [facility]. Selected Revisions: October 29, 2022. AHFS?? Patient [...] Maite Austin MD PCP name and Address: PcpKatherine [address] [place] [address] Referring provider name and address: No referring provider defined for this encounter. Chief Concern, Brief History of Present Illness, and Hospital Course Ms. Rere Hunter is a 53 year old with PMH significant for anxiety, depression, COPD, and tobacco abuse. She initially presented to [facility]. She ruled in for NSTEMI and [...] Your Medications These medications were sent to [facility] [place], [place] - [address] [facility] [address] acetaminophen 500 MG tablet aspirin 81 MG [...] Fluid Collection - possible reactive secondary to GA - WBC 12.8, afebrile - continue to [...] 06/26/2024 11:00 AM Bc Mckee MD [facility] 07/18/2024 9:00 AM Maite Austin MD [facility] [place] 07/31/2024 9:00 AM Lidia Troncoso MD [facility] Test Results Pending At Discharge None [...] Appliance 2 piece;Flat Barrier/Pouch 06/19/242245 Site Assessment Moist;Big Sky 06/19/246 Peristomal Assessment Intact;Clean 06/19/24 2246 Output (mL) 125 mL 06/20/24 0405 Gastric [...] and tobacco abuse. She initially presented to [facility]. She ruled in for NSTEMI and [...] ABD incision: proximal incision may be left STEP DOWN SPECIALIST, for distal incision cleanse with NS and [...] PM * Progress Notes - Trinity Yousif, BATTERY PARTS ASSEMBLER - 06/20/2024 10:23 AM EDT CVT Progress [...] and tobacco abuse. She initially presented to [facility]. She ruled in for NSTEMI and [...] Fluid Collection - possible reactive secondary to GA - WBC 12.8, afebrile - continue to [...] H/H 10.4/31.9 - 06/18: H/H 11.0/33.7 - 6: H/H 10.7/33.1 - [...] plan of care. Encourage mobilization. Cardiothoracic Surgery [phone] * Clinician Note - Divina Yousif - 06/20/2024 10:13 AM EDT Physical Therapy Attempt Patient Name: Rere Hunter Today's Date: 06/20/2024 Patient was attempted to be seen by physical therapy 06/20/2024 for PT Treatment however patient politely declined. PT provided gentle encouragement and education. Pt continued to refuse, reports she will mobilize with staff research scientist later this date. Physical therapy team will [...] refuse, reports she will mobilize with staff research scientist later this date. Occupational therapy team will follow-up as schedulepermits. Written by Keisha Sabillon on 06/20/24 at 12:39 PM. * Progress Notes - Annika Perez RN - 06/20/2024 7:40 AM EDT Case Management Adult Progress Note Rere Hunter 53 y.o. female CSN: [id number] Admission: 05/01/2024 11:01 PM Primary Problem: CAD, multiple vessel Anticipated Discharge Date: tbd Additional Comments: CM placed wound vac referral with [facility]. Annika Perez RN * Care Plan [...] and tobacco abuse. She initially presented to [facility]. She ruled in for NSTEMI and [...] Fluid Collection - possible reactive secondary to GA - WBC 12.8, afebrile - continue to [...] 06/18: platelets 565 - 6: platelets 615 Transaminitis - ALT 122, AST [...] pain - Abdominal tenderness and pain - [facility] Total Parenteral Nutrition (TPN) (discontinued) - [...] (appointment made and in chart). Cardiothoracic Surgery [phone] * Consults - Gretchen Brothers RD - 06/19/2024 12:39 PM EDT Adult Nutrition Evaluation Note Rere Hunter 53 y.o. female CSN: [id number] Room/Bed 117/117A Nutrition evaluation type: follow-up Reason [...] reports persistent abd pain with PO intake. BATTERY PARTS ASSEMBLER present encourages pt to move to help [...] O2 Delivery Method: Nasal cannula with capnography Dudley Coma Scale Score: 15 Shaan Scale Score: [...] (Calculated): 22.09 Weight Evaluation: Overweight (BMI 25-29.9) [place] Body Weight (kg): 47.7 Percent [place] Body Weight: 111 Adjusted Body Weight (kg): 50.9 Wt Readings from Last 10 Encounters: 06/19/24 53 kg (116 lb 13.5 oz) 06/28/23 59 kg (130 lb) 04/26/23 62.6 kg (138 lb) 01/18/23 61.7 kg (136 lb) Estimated Needs: Kcal/ K-35 Kcal Provided: 4841-4209 Kcal Needs Based On: Current weight Gm Protein/ Kg : 1.5-2 Protein Provided: 81-109 Protein Needs Based On: Current weight Metabolic Cart Study Results: Current Nutrition Intake: Diet Supplements: Boost Very High Calorie Diet Order: Adult Diet Diet Texture: Regular Adult Carbohydrate Restriction: Consistent CHO 2 (6650-5985 Channing, 80 g/meal) Fat Restriction: Cardiac Other Restrictions: Other (Comment) (GI Ostomy) Percent Meals Eaten (%): avg 55% x 5 meals (06/14-06/15) Diet Experience and Nutrition History: Diet Education Provided: Will monitor Pertinent home medications: reviewed Sabianism needs: Nutrition Focused Physical Exam: Physical exam [...] Date Anxiety COPD (chronic obstructive pulmonary disease) ([facility]) 05/01/2024 Continue Duo nebs q6 SPO2 goal >88% Depression GERD (gastroesophageal reflux disease) 05/01/2024 Continue Protonix 40 mg daily Hyperkalemia 05/06/2024 Now resolved, pt with hypokalemia requiring replacement On mechanically assisted ventilation ([facility]) 05/06/2024 Arrived to ICU intubated 05/07 extubated to 4LNC 05/08 resolved Tobacco use 05/01/2024 Slot Host for smoking 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 Complicates all [...] wound vac to ABD inc. Wound History: PMHx of CAD, HTN, [...] changes or concerns prior to follow up. JAMARI Valdes 06/18/2024 2:56 PM * Progress Notes - Lester Lazo RN - 06/18/2024 2:49 PM EDT Images from the original note were not included. Ostomy Progress Note Visit Date: 06/18/2024 Patient Name: Rere Hunter Date of : 1970 Education other education. Pt has not changed again since last Wed however was independent with emptying, pt noticed [...] Known Removed: Removal Reason : Wound Image 06/18/24 1145 Stomal Appliance 2 piece;Flat Barrier/Pouch;Flat Ring;Barrier Olpe/Wipe 06/18/24 1145 Site Assessment Moist;Big Sky;Raised 06/18/24 1145 Peristomal Assessment Clean;Intact 06/18/24 1145 Treatment Bag change;Site care 06/18/24 1145 Output (mL) 200 mL 06/18/24 0800 Gastric Output Appearance Watery 06/18/24 1145 Gastric Output Color Yellow;Brown 06/18/24 1145 Refeeding Mucous Fistula (mL) 250 mL 06/18/24 1148 Recs in JAMARI ValdesN 06/18/2024 2:49 PM * Progress Notes - [...] and tobacco abuse. She initially presented to [facility]. She ruled in for NSTEMI and [...] Fluid Collection - possible reactive secondary to GA - WBC 12.8, afebrile - continue to [...] 06/12: 9.3/29.4 - 06/13: H/H 9.8/30.5 - 5/2: H/H 10.3/31.8 - /3: H/H 10.2/30.1 - 06/17: H/H 10.4/31.9 - [...] (appointment made and in chart). Cardiothoracic Surgery [phone] * Progress Notes - Annika Perez RN - 06/18/2024 9:11 AM EDT Case Management Adult Progress Note Rere Hunter 53 y.o. female CSN: [id number] Admission: 05/01/2024 11:01 PM Primary Problem: CAD, multiple vessel Anticipated Discharge Date: 06/21/2024 Additional Comments: JAMARI PATEL reviewed chart and met with primary team to discuss plan of care. Patient is not medically ready for discharge at this time, continue to monitor ileus. Edward sent Fax to [facility] for ostomy supplies, will continue to follow. Update: EDWARD contacted [facility] for follow up [place] dressing changes. CM to set up care through the infusion center until getting established on a MW schedule with the outpatient wound clinic. Annika [...] 06/16/241999 RECs FOR HOME: 2 04/17 Wafer: #[id number] 2 04/17 bag: #20905 2 inch ring: #8805 Stoma powder: # 7906 Skin protective wipes: #7917 Odor eliminator and lubricant: #[id number] Lester Lazo RN CWOCN 06/18/2024 8:27 AM * Care Plan - Luca Urbano RN - 06/18/2024 7:30 AM EDT Problem: Adult Inpatient Plan of Care Goal: Plan of Care Review Outcome: Ongoing, Progressing Flowsheets Taken 06/17/2024 [id number] by Brooklyn Miller RN Progress: no change [...] Progress Notes - Trinity Yousif APRN - 06/17/2024 10:08 AM EDT CVT Progress [...] and tobacco abuse. She initially presented to [facility]. She ruled in for NSTEMI and [...] Fluid Collection - possible reactive secondary to GA - WBC 12.8, afebrile - continue to [...] H/H 9.8/30.5 - 2: H/H 10.3/31.8 - 06/16: H/H 10.2/30.1 - 06/17: H/H 10.4/31.9 Hypocalcemia (POA) - monitor and replace prn [...] [facility] - [facility] Parenteral Nutrition (TPN) (discontinued) - Started [...] in chair for all meals. Cardiothoracic Surgery [phone] * Progress Notes - Trinity Yousif APRN [...] and tobacco abuse. She initially presented to [facility]. She ruled in for NSTEMI and [...] Fluid Collection - possible reactive secondary to GA - WBC 12.8, afebrile - continue to [...] pain - Abdominal tenderness and [facility] - [facility] Total Parenteral Nutrition (TPN) (discontinued) - Started [...] to encourage to eat. Mobilize. Cardiothoracic Surgery [phone] * Progress Notes - Annika Perez RN - 06/15/2024 1:11 PM EDT Case Management Discharge Note Rere Hunter 53 y.o. female CSN: [id number] Admission: 05/01/2024 11:01 PM Primary Problem: CAD, multiple vessel Primary Cmm Programmer: Primary Caregiver: Self Assistance Available at Discharge: Availability of Care Givers (#Hours): No assistance needed Family/Cmm Programmer(s) Willingness Assessed to care for patient at home: Yes Family/Cmm Programmer(s) Readiness Assessed to care for patient at [...] Medicare Documentation: Medicare Second Notice?: No Follow-up: [facility] [address], [address] [facility] [address] [facility] [address] [address] Go on 08/02/2024 Your appointment time is 2pm Please arrive 15 minutes early and bring bottles of medications. [facility] [address] [facility] [address] Discharge Transportation: Transportation Anticipated: family or friend will provide Transportation Home at Discharge: Family/Friend will Provide Follow Up Transport: Transportation Needed to Follow up Appoinments: Family/Friend will Provide Additional Comments: Per primary team patient is medically ready and may discharge over the weekend. CM placed rollator referral to [facility]. CM notified primary team to give patient a script for outpatient Pt/OT. Patient is agreeable with discharge plan. No CM/SW needs identified. Daughter to assist and transport upon discharge. Annika Perez RN * Progress Notes - Trinity Yousif, BATTERY PARTS ASSEMBLER - 06/15/2024 9:17 AM EDT CVT Progress [...] and tobacco abuse. She initially presented to [facility]. She ruled in for NSTEMI and [...] Fluid Collection - possible reactive secondary to GA - WBC 12.8, afebrile - continue to [...] pain - Abdominal tenderness and [facility] - [facility] Total Parenteral Nutrition (TPN) (discontinued) - Started [...] with no acute intracranial abnormalities. Cardiothoracic Surgery [phone] * Care Plan - Lelia Nuñez RN [...] Note Rere Hunter 53 y.o. female CSN: [id number] Room/Bed 117/117A Nutrition evaluation type: follow-up Reason [...] reports persistent abd pain with PO intake. BATTERY PARTS ASSEMBLER present encourages pt to move to help [...] (Calculated): 22.71 Weight Evaluation: Overweight (BMI 25-29.9) [place] Body Weight (kg): 47.7 Percent [place] Body Weight: 114 Adjusted Body Weight (kg): 50.9 Wt Readings from Last 10 Encounters: 06/14/24 54.5 kg (120 lb 2.4 oz) 06/28/23 59 kg (130 lb) 04/26/23 62.6 kg (138 lb) 01/18/23 61.7 kg (136 lb) Estimated Needs: Kcal/ K-35 Kcal Provided: 9794-8337 Kcal Needs Based On: Current weight Gm Protein/ Kg : 1.5-2 Protein Provided: 81-109 Protein Needs Based On: Current weight Metabolic Cart Study Results: Current Nutrition Intake: Diet Supplements: Boost Very High Calorie, Roque Packet Diet Order: Adult Diet Diet Texture: Regular Adult Carbohydrate Restriction: Consistent CHO 2 (4071-7008 Channing, 80 g/meal) Fat Restriction: Cardiac Other Restrictions: Other (Comment) (GI: Ostomy) Percent Meals Eaten (%): No updates att Diet Experience and Nutrition History: Diet Education Provided: Will monitor Pertinent home medications: reviewed Sabianism needs: Nutrition Focused Physical Exam: Physical exam [...] clean utility). -Document PO intake in flowsheet -TF Rec's [...] Date Anxiety COPD (chronic obstructive pulmonary disease) ([facility]) 05/01/2024 Continue Duo nebs q6 SPO2 goal >88% Depression GERD (gastroesophageal reflux disease) 05/01/2024 Continue Protonix 40 mg daily Hyperkalemia 05/06/2024 Now resolved, pt with hypokalemia requiring replacement On mechanically assisted ventilation ([facility]) 05/06/2024 Arrived to ICU intubated 05/07 extubated to 4LNC 05/08 resolved Tobacco use 05/01/2024 Slot Host for smoking 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 Complicates all [...] admission Level of Mobility Ambulatory- community Mobility [place] Independent gait without device (pt is the [...] unaware when pt may be discharged from [facility]. Dynamite Cartridge Crimper (if applicable) OBJECTIVE & INTERVENTIONS PAIN Pain [...] Treatment Minutes 23 BED MOBILITY Level of [place] Physical/Non- physical Assist Adaptive Equipment Utilized Rolling/ Turning Scooting/ Bridging Stand-by assist Set-up required, Minimal cues Supine to Sit Stand-by assist Set-up required, Minimal cues Sit to Supine Interventions TRANSFERS Level of [place] Physical/Non- physical Assist Adaptive Equipment Utilized Sit to Stand Stand-by assist Set-up required, Minimal cues Rollator Stand to sit Stand-by assist Verbal Cues, Set-up required Rollator Bed to Chair Toilet Transfer Shower Transfer Interventions AMBULATION Level of [place] Distance Adaptive Equipment Utilized Ambulation Standby assist 640 ft Rollator Comments Safely done. Fatigued after 500 ft . BUTCHER'S ASSISTANT presence was necessary for: * managing lines [...] Note Rere Hunter 53 y.o. female CSN: [id number] Admission: 05/01/2024 11:01 PM Primary Problem: CAD, [...] extended L colectomy and end colostomy creation ([facility]) 06/04: IR-guided drain Interval: resting in bed, [...] Addendum 05/23/2024 8:44 AM by Marybel Suarez, BATTERY PARTS ASSEMBLER Patient presented to OSH on 05/01/24 c/o chest pain, C reveal mvCAD S/p CABG with Dr. Austin on 05/07 Anxiety and depression Yes Overview Addendum 05/23/2024 8:43 AM by Marybel Suarez, BATTERY PARTS ASSEMBLER Continue home bupropion XL 300 mg daily Continue home citalopram 40 mg daily Continue PRN hydroxyzine 25 mg q6 COPD (chronic obstructive pulmonary disease) ([facility]) Yes Overview Addendum 05/23/2024 8:43 AM by Marybel Suarez, BATTERY PARTS ASSEMBLER Duo nebs q6 Wean O2 for SPO2 goal >88% Tobacco use Yes Overview Signed 05/01/2024 8:37 PM by Marylu Carvajal APRN, DNP Slot Host for smoking 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 Complicates all aspects of care and recovery NSTEMI (non-ST elevated myocardial infarction) (CMS/HCC) Yes Overview Addendum 05/22/2024 11:00 AM by Jose Aburto MD Diagnosed at OSH with elevated troponins of 0.05 to 0.23 to 0.16 Started on heparin drip BUTCHER'S ASSISTANT, 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 Repeat troponins pending 05/07 [...] Signed 05/23/2024 8:47 AM by Marybel Suarez, ARASH Restart statin when no longer NPO THOM [...] and tobacco abuse. She initially presented to [facility]. She ruled in for NSTEMI and [...] Fluid Collection - possible reactive secondary to GA - WBC 12.8, afebrile - continue to [...] for help from now on. Cardiothoracic Surgery [phone] * Progress Notes - Lester Lazo RN [...] Stomal Appliance 1 piece;2 piece;Flat Barrier/Pouch;Flat Ring;Barrier Olpe/Wipe 06/13/24 1100 Site Assessment Moist;Big Sky;Raised 06/13/24 1100 Peristomal Assessment Intact;Clean 06/13/24 1100 [...] foam applied with good seal @ 125. [place] remain in the center portion. Wound Team [...] another time * Progress Notes - Trinity Yousif DayanaARASH - 06/13/2024 10:57 AM EDT CVT Progress [...] and tobacco abuse. She initially presented to [facility]. She ruled in for NSTEMI and [...] Fluid Collection - possible reactive secondary to GA - WBC 12.8, afebrile - continue to [...] Continue wound vac changes MWF. Cardiothoracic Surgery [phone] * Care Plan - Alessandra Keene RN [...] Keene RN Body Position: weight shifting Taken 06/07/2024 2200 by Ashwin Odom RN Skin Protection: incontinence [...] Family/Caregiver Present: No Family/Caregiver: Other (Specify) (Friend) Dynamite Cartridge Crimper: Not Applicable Presentation Oxygen Therapy: None (Room [...] Mobility Bed Mobility Exam: Rolling/Turning Level of [place]: Maximum assist (25% patient effort) Physical/Nonphysical Assist: Verbal Cues, Nonverbal cues (demo/gestures), Additional assist utilized for safety, Moderate cues Bed Mobility Exam: Scooting/Bridging Level of [place]: Minimum assist (75% patient's effort) Physical/Nonphysical Assist: Verbal Cues, Nonverbal cues (demo/gestures) Assistive Device: (drawsheet) Bed Mobility Exam: Supine to Sit Level of [place]: Moderate assist (50% patient's effort) Physical/Nonphysical Assist: Verbal Cues, Set-up required, HOB elevated Transfers Transfer Exam: Sit to stand Level of [place]: Stand-by assist Physical/Nonphysical Assist: Verbal Cues, Set-up required Assistive Device: Rollator Transfer Exam: Stand to Sit Level of [place]: Stand-by assist Physical/Nonphysical Assist: Verbal Cues, Set-up [...] DPT * Progress Notes - Keisha Sabillon - 06/12/2024 11:25 AM EDT Occupational Therapy Treatment Patient Name: Rere Hunter Today's Date: 06/12/2024 OT Discharge Recommendations: Home with assistance, Home health PT, Home health OT Equipment Recommended: Rollator Subjective Pt agreeable to participate in session. Participants in Care Family/Caregiver Present: No Family/Caregiver: Adult Son Dynamite Cartridge Crimper: Not Applicable Presentation Oxygen Therapy: None (Room [...] Mobility Bed Mobility Exam: Scooting/Bridging Level of [place]: Minimum assist (75% patient's effort) Physical/Nonphysical Assist: Verbal Cues, Nonverbal cues (demo/gestures) Assistive Device: Other (drawsheet) Bed Mobility Exam: Supine to Sit Level of [place]: Moderate assist (50% patient's effort) Physical/Nonphysical Assist: Verbal Cues, Set-up required, HOB elevated Assistive Device: Other (drawsheet) Bed Mobility Exam: Sit to Supine Level of [place]: Minimum assist (75% patient's effort) Physical/Nonphysical Assist: Nonverbal cues (demo/gestures), Verbal Cues, Additional assist utilized for safety Transfers Transfer Exam: Sit to stand Level of [place]: Stand-by assist Physical/Nonphysical Assist: Verbal Cues, Set-up required Assistive Device: Rollator Transfer Exam: Stand to Sit Level of [place]: Stand-by assist Physical/Nonphysical Assist: Verbal Cues, Set-up required Assistive Device: Rollator Toilet Transfer Level of [place]: Minimum assist (75% patient's effort) Physical/Nonphysical Assist: [...] from last 7 days Lab Units 06/12/2432306/10/2442706/09/24 012 WBC 10*3/uL 10.53* 20.16* 12.12* HEMOGLOBIN g/dL 9.3* 10.2* 9.4* HEMATOCRIT % 29.4* 32.0* 29.9* PLATELETS 10*3/uL 393* 478* 471* Results from last 7 days Lab Units 06/12/2432306/10/2442706/09/24 012 SODIUM mmol/L 129* 131* 130* POTASSIUM mmol/L 3.8 4.1 4.3 CHLORIDE mmol/L 95* 97 98 CO2 mmol/L 26 BUN mg/dL 12 9 11 CREATININE mg/dL 0.59* 0.53* 0.48* CALCIUM mg/dL 8.1* 8.4* 7.9* BILIRUBIN TOTAL mg/dL 0.3 0.3 -- ALKALINE PHOSPHATASE U/L 229* 258* -- ALT U/L 106* 122* -- AST U/L 58* 80* -- GLUCOSE mg/dL 93 76 116* Results from last 7 days Lab Units 06/10/2442706/09/247 06/08/24 0544 MAGNESIUM mg/dL 1.8* 1.9 1.9 [...] and tobacco abuse. She initially presented to [facility]. She ruled in for NSTEMI and [...] Fluid Collection - possible reactive secondary to GA - WBC 12.8, afebrile - continue to [...] may have to restart TPN Cardiothoracic Surgery [phone] * Valentine Guerrero RN - 06/11/2024 7:01 PM EDT Images from the original note were not included. [id number] Colostomy: Managing Your Nutrition You don?t have [...] and other carbonated beverages. ?? Broccoli. ?? [place] sprouts. ?? Cabbage. ?? Cauliflower. ?? [place]. ?? Cucumbers. ?? Dried beans. ?? Milk and other dairy products with lactose. ?? Mushrooms. ?? Nuts. ?? Onions. ?? Peas. ?? Sodas. ?? Spicy foods. Foods that can cause odor include: ?? Asparagus. ?? Broccoli. ?? [place] sprouts. ?? Cabbage. ?? Cheese. ?? Eggs. [...] bleeds. Last Reviewed Date: 2024 00:00:00 ?? [id number] [employer]. All rights reserved. This information is not intended as a substitute for professional medical care. Always follow your healthcare professional's instructions. * Consults - Gretchen Brothers RD - 06/11/2024 3:41 PM EDT Adult Nutrition Evaluation Note Rere Hunetr 53 y.o. female CSN: [id number] Room/Bed 117/117A Nutrition evaluation type: follow-up Reason [...] reports persistent abd pain with PO intake. BATTERY PARTS ASSEMBLER present encourages pt to move to help [...] O2 Delivery Method: Nasal cannula with capnography Dudley Coma Scale Score: 15 Shaan Scale Score: [...] (Calculated): 22.67 Weight Evaluation: Overweight (BMI 25-29.9) [place] Body Weight (kg): 47.7 Percent [place] Body Weight: 114 Adjusted Body Weight (kg): 50.9 Wt Readings from Last 10 Encounters: 06/11/24 54.4 kg (119 lb 14.9 oz) 06/28/23 59 kg (130 lb) 04/26/23 62.6 kg (138 lb) 01/18/23 61.7 kg (136 lb) Wt last f/u was 56.4 kg; 3.5% change if accurate. Estimated Needs: Kcal/ K-35 Kcal Provided: 1734-7723 Kcal Needs Based On: Current weight Gm Protein/ Kg : 1.5-2 Protein Provided: 81-109 Protein Needs Based On: Current weight Metabolic Cart Study Results: Current Nutrition Intake: Diet Supplements: Boost Very High Calorie, Roque Packet Diet Order: Adult Diet Diet Texture: Regular Adult Carbohydrate Restriction: Consistent CHO 2 (1892-3823 Channing, 80 g/meal) Fat Restriction: Cardiac Other [...] Provided: Will monitor Pertinent home medications: reviewed Sabianism needs: Nutrition Focused Physical Exam: Physical exam [...] once daily + Roque BID (located in [employer] utility). -Modifying Boost to magic cup -Document [...] Date Anxiety COPD (chronic obstructive pulmonary disease) ([facility]) 05/01/2024 Continue Duo nebs q6 SPO2 goal >88% Depression GERD (gastroesophageal reflux disease) 05/01/2024 Continue Protonix 40 mg daily Hyperkalemia 05/06/2024 Now resolved, pt with hypokalemia requiring replacement On mechanically assisted ventilation ([facility]) 05/06/2024 Arrived to ICU intubated 05/07 extubated to 4LNC 05/08 resolved Tobacco use 05/01/2024 Slot Host for smoking 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 Complicates all [...] and CAD s/p 4v CABG on 05/06 04: ex lap, extended L colectomy and end [...] last 7 days Lab Units 06/10/2442706/09/2412606/08/24 0544 HEMOGLOBIN g/dL 10.2* 9.4* 9.2* HEMATOCRIT % 32.0* 29.9* 28.4* INR Cr Results from last 7 days Lab Units 06/10/2442706/09/2412606/08/24 0544 CREATININE mg/dL 0.53* 0.48* 0.46* Medications reviewed. Vital signs reviewed. Labs reviewed. Radiography reviewed. Assessment and Plan: Medical Problems and Relevant Plans Hospital Problems POA * (Principal) CAD, multiple vessel Yes Overview Addendum 05/23/2024 8:44 AM by Marybel Suarez, BAT[employer]S ASSEMBLER Patient presented to OSH on 05/01/24 c/o chest pain, LHC reveal mvCAD S/p CABG with Dr. Austin on 05/07 Anxiety and depression Yes Overview Addendum 05/23/2024 8:43 AM by Marybel Suarez, [employer]S ASSEMBLER Continue home bupropion XL 300 mg daily Continue home citalopram 40 mg daily Continue PRN hydroxyzine 25 mg q6 COPD (chronic obstructive pulmonary disease) ([facility]) Yes Overview Addendum 05/23/2024 8:43 AM by Marybel Suarez, ARASH Duo nebs q6 Wean O2 for SPO2 goal >88% Tobacco use Yes Overview Signed 05/01/2024 8:37 PM by Marylu Carvajal APRN, DNP Slot Host for smoking 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 Complicates all aspects of care and recovery NSTEMI (non-ST elevated myocardial infarction) ([facility]) Yes Overview Addendum 05/22/2024 11:00 AM by Jose Aburto MD Diagnosed at OSH with elevated troponins of 0.05 to 0.23 to 0.16 Started on heparin drip BUTCHER'S ASSISTANT, 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 Repeat troponins pending 05/07 [...] Addendum 05/23/2024 8:50 AM by Marybel Suarez, [employer]BLER Remains febrile with elevated EBC Cultures ordered and pending Thrombocytosis Yes Hypocalcemia Yes Hyperlipidemia Yes Overview Signed 05/23/2024 8:47 AM by Marybel Suarez, [employer]SEMBLER Restart statin when no longer NPO THOM [...] Overview Addendum 06/11/2024 8:53 AM by Uriah Ricardo, PA colonic perforation. S/p ex lap 05/23/24 Post-op pain No Overview Addendum 05/25/2024 10:12 AM by Dave Baird P, DO Abdominal tenderness and pain 11/23 Increase dilaudid IV ketamine Abdominal fluid collection No Hyponatremia No Hypomagnesemia No Transaminitis No Thrombocytopenia (CMS/HCC) Yes Colon perforation (CMS/HCC) No Overview Addendum 06/11/2024 8:52 AM by Uriah Ricardo, PA Noted on CT scan 05/23/24 S/p [...] Note Rere Hunter 53 y.o. female CSN: [id number] Admission: 05/01/2024 11:01 PM Primary Problem: CAD, multiple vessel Anticipated Discharge Date: tbd Additional Comments: JAMARI PATEL reviewed chart and met with primary team to discuss plan of care. Patient is not medically ready for discharge at this time, continue to encourage a PO diet. JAMARI PATEL will continue to follow. Annika Perez [...] CHLORIDE mmol/L 97 98 99 CO2 mmol/L 27 BUN mg/dL 9 11 11 CREATININE mg/dL [...] and tobacco abuse. She initially presented to [facility]. She ruled in for NSTEMI and [...] Fluid Collection - possible reactive secondary to GA - WBC 12.8, afebrile - continue to [...] pain, ostomy functioning appropriately - Follow SGE ELNA output (superior drain in fluid cavity near [...] and tobacco abuse. She initially presented to [facility]. She ruled in for NSTEMI and [...] Fluid Collection - possible reactive secondary to GA - WBC 12.8, afebrile - continue to [...] changes MWF. Mobilize as able. Cardiothoracic Surgery [phone] * Care Plan - Jenifer Reyes RN [...] Value Units Date/Time Blood Culture (Aerobic/Anaerobet Set) [[id number]] Collected: 05/23/24 1020 Order Status: Completed Specimen: Blood, Venous Updated: 05/24/24 1101 Culture No growth at day 1 Fungal Blood Culture [[id number]] Collected: 05/17/241812 Order Status: Completed Specimen: Blood, Venous Updated: 05/24/24 0638 Culture No Fungal Growth at 1 Week AFB Blood Culture [[id number]] Collected: 05/17/241812 Order Status: Completed Specimen: Blood, Venous Updated: 05/24/24 0638 AFB Culture No Mycobacterial Growth at 1 Week Vitals: Visit Vitals BP 114/73 (BP Location: Right arm, Patient Position: Lying) Pulse 92 Temp 36.9 ??C (98.4 ??F) (Oral) Resp 18 Dudley Coma Scale Score: 15 Shaan Scale Score: [...] Weight: 61.1 kg (134 lb 12.8 oz) [place] body weight: 47.8 kg (105 lb 4.8 oz) Adjusted ideal body weight: 52.8 kg (116 lb 5.7 oz) (126.25%) of IBW Body mass index is 25.13 kg/m??. Adjusted wt: 50.9 kg (if over 125% of IBW) CENTRAL IV Access: PICC (05/18/24) Estimated Nutritional Needs: HBE: 1153 Stress Factor: 1.2-1.4 Total Calories/day: 4172-6796 Protein (amino acids): 1.3-1.6 grams/kg Protein (Amino [...] you, Valentine Mack, PharmD, BCCCP Available via [employer] Secure Chat [1] Patient Active Problem List Diagnosis Anxiety and depression COPD (chronic obstructive pulmonary disease) ([facility]) CAD, multiple vessel NSTEMI (non-ST elevated myocardial infarction) ([facility]) GERD (gastroesophageal reflux disease) Leukocytosis Hyperlipidemia THOM (obstructive sleep apnea) S/P CABG x 4 Hypertension Cardiac volume overload Hypoglycemia Nausea with vomiting Acute blood loss anemia (ABLA) Gastric perforation ([facility]) On total parenteral nutrition (TPN) Ileus ([facility]) Electrolyte abnormality Colon perforation ([facility]) Post-op pain Delirium [2] Past Medical History: Diagnosis Date Anxiety COPD (chronic obstructive pulmonary disease) ([facility]) 05/01/2024 Continue Duo nebs q6 SPO2 goal >88% Depression GERD (gastroesophageal reflux disease) 05/01/2024 Continue Protonix 40 mg daily Hyperkalemia 05/06/2024 Now resolved, pt with hypokalemia requiring replacement On mechanically assisted ventilation ([facility]) 05/06/2024 Arrived to ICU intubated 05/07 extubated to 4LNC 05/08 resolved Tobacco use 05/01/2024 Slot Host for smoking 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 Complicates all [...] growth to date - Wound Vac changes [facility] Cardiothoracic Surgery [phone] * Care Plan - Cyndie Jackson RN [...] extended L colectomy and end colostomy creation ([facility]) 06/04: IR-guided drain Interval: VSS AF on RA. Drain 1 10 (5). LLQ 20 (50), ostomy 200 (155). On TPN and regular diet. Tolerating her diet but without much of an appetite. She reports eating some food. No nausea or vomiting. Calorie count pending. Continues to have bowel function. Edited by: Duane Cruz MD at 06/08/2024 7008 Relevant review of systems was obtained as [...] 06/06/24 18506/06/24 1900 - 06/07/24 0659 06/07/24 0700 - 06/07/24 18506/07/24 1900 - 06/08/24 0659 06/08/24 07 - [...] 7 days Lab Units 06/08/24 0544 06/07/24 0606/06/24 0403 CREATININE mg/dL 0.46* 0.44* 0.50* Medications [...] mg q6 COPD (chronic obstructive pulmonary disease) ([facility]) Yes Overview Addendum 05/23/2024 8:43 AM by Marybel Suarez, ARASH Duo nebs q6 Wean O2 for SPO2 goal >88% NSTEMI (non-ST elevated myocardial infarction) ([facility]) Yes Overview Addendum 05/22/2024 11:00 AM by Jose Aburto MD Diagnosed at OSH with elevated troponins of 0.05 to 0.23 to 0.16 Started on heparin drip BUTCHER'S ASSISTANT, 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 Repeat troponins pending 05/07 [...] Signed 05/23/2024 8:47 AM by Marybel Suarez, [employer]SEMBLER Restart statin when no longer NPO THOM (obstructive sleep apnea) Yes Overview Addendum 05/23/2024 8:45 AM by Marybel Suarez, BATTERY PARTS ASSEMBLER Refusing home CPAP remains on NC S/P CABG x 4 Not Applicable Overview Addendum 05/23/2024 8:45 AM by Marybel Suarez APRN 05/06 4vCABG w/ Dr. Austin Aspirin, statin, beta stacey as clinically appropriate Hypertension Yes Overview Addendum 05/23/2024 8:47 AM by Marybel Suarez, BATTERY [employer]S ASSEMBLER Metop IV while NPO Restart PO metop when appropriate Cardiac volume overload No Overview Addendum 05/18/2024 10:24 AM by Sidney Jackson MD Diuresis as clinically indicated Hypoglycemia No Overview Addendum 05/23/2024 8:46 AM by Marybel Suarez, BATTERY PARTS ASSEMBLER Resolved once TPN started Nausea with vomiting No Overview Addendum 05/28/2024 8:26 AM by Sidney Jackson MD TPN running Advance PO diet as able Acute blood loss anemia (ABLA) No Overview Addendum 05/23/2024 8:43 AM by Marybel Suarez, BATTERY PARTS ASSEMBLER Lab Results Component Value Date HGB 9.0 [...] Signed 05/23/2024 8:50 AM by Marybel Suarez, BATTERY PARTS ASSEMBLER - monitor and replace prn Post-op pain [...] Consult Visit Date: 06/08/2024 Patient Name: Rere Hunetr Date of : 1970 Admit Date: 05/01/2024 [...] 1507 Stomal Appliance 2 piece;Flat Barrier/Pouch;Flat Ring;Barrier Olpe/Wipe 06/08/24 1507 Site Assessment Moist;Raised;Red 06/08/24 1507 Peristomal Assessment Intact;Clean 06/08/24 1507 Treatment Bag change;Site care 06/08/24 1507 Output (mL) 250 mL 06/08/24 1507 Gastric Output Appearance Watery 06/08/24 1507 Gastric Output Color Brown 06/08/24 1507 [facility] 06/08/2024 3:10 PM * Consults - [...] RD note 06/07 Kcal/ K-35 Kcal Provided: 3702-7547 Kcal Needs Based On: Current weight Gm Protein/ Kg : 1.5-2 Protein Provided: 81-109 Protein Needs Based On: Current weight 06/08: Calorie count results: 06/04: ~658kcal; 26g protein 06/05: ~65kcal; 3g protein 06/06: ~66kcal; 4g protein 3-day ave (06/04-06/06) = 263kcal; 11g protein. Patient meeting ~14-16%kcal; 10- 13% protein needs. RD to follow. Garrett Ruiz DTR * Progress Notes - Dulce Alamo APRN - 06/08/2024 9:11 AM EDT CVT Progress [...] - Follow cultures - Wound Vac changes [facility] Cardiothoracic Surgery [phone] * Progress Notes - Db Kline - [...] Value Units Date/Time Blood Culture (Aerobic/Anaerobet Set) [[id number]] Collected: 05/23/24 1020 Order Status: Completed Specimen: Blood, Venous Updated: 05/24/24 1101 Culture No growth at day 1 Fungal Blood Culture [[id number]] Collected: 05/17/241812 Order Status: Completed Specimen: Blood, Venous Updated: 05/24/24 0638 Culture No Fungal Growth at 1 Week AFB Blood Culture [[id number]] Collected: 05/17/241812 Order Status: Completed Specimen: Blood, Venous Updated: 05/24/2438 AFB Culture No Mycobacterial Growth at 1 Week Vitals: Visit Vitals BP 98/63 (BP Location: Right arm, Patient Position: Lying) Pulse 87 Temp 36.7 ??C (98 ??F) (Oral) Resp 17 Dudley Coma Scale Score: 15 Shaan Scale Score: [...] of Roque Fruit Punch Packet One 05/29/24 5538 Current Medications acetaminophen, 500 mg, Oral, q6h [...] Weight: 61.1 kg (134 lb 12.8 oz) [place] body weight: 47.8 kg (105 lb 4.8 oz) Adjusted ideal body weight: 52.8 kg (116 lb 5.7 oz) (126.25%) of IBW Body mass index is 25.13 kg/m??. Adjusted wt: 50.9 kg (if over 125% of IBW) CENTRAL IV Access: PICC (05/18/24) Estimated Nutritional Needs: HBE: 1153 Stress Factor: 1.2-1.4 Total Calories/day: 0833-6490 Protein (amino acids): 1.3-1.6 grams/kg Protein (Amino [...] and depression COPD (chronic obstructive pulmonary disease) ([facility]) CAD, multiple vessel NSTEMI (non-ST elevated myocardial infarction) ([facility]) GERD (gastroesophageal reflux disease) Leukocytosis Hyperlipidemia THOM (obstructive sleep apnea) S/P CABG x 4 Hypertension Cardiac volume overload Hypoglycemia Nausea with vomiting Acute blood loss anemia (ABLA) Gastric perforation ([facility]) On total parenteral nutrition (TPN) Ileus ([facility]) Electrolyte abnormality Colon perforation ([facility]) Post-op pain Delirium [2] Past Medical History: Diagnosis Date Anxiety COPD (chronic obstructive pulmonary disease) ([facility]) 05/01/2024 Continue Duo nebs q6 SPO2 goal >88% Depression GERD (gastroesophageal reflux disease) 05/01/2024 Continue Protonix 40 mg daily Hyperkalemia 05/06/2024 Now resolved, pt with hypokalemia requiring replacement On mechanically assisted ventilation (CMS/HCC) 05/06/2024 Arrived to ICU intubated 05/07 extubated to 4LNC 05/08 resolved Tobacco use 05/01/2024 Slot Host for smoking 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 Complicates all [...] Note Rere Hunter 53 y.o. female CSN: [id number] Room/Bed 117/117A Nutrition evaluation type: follow-up Reason [...] reports persistent abd pain with PO intake. BAT[employer]Y [employer]S ASSEMBLER present encourages pt to move to help [...] O2 Delivery Method: Nasal cannula with capnography Dudley Coma Scale Score: 15 Shaan Scale Score: [...] (Calculated): 23.51 Weight Evaluation: Overweight (BMI 25-29.9) [place] Body Weight (kg): 47.7 Percent [place] Body Weight: 118 Adjusted Body Weight (kg): 50.9 Wt Readings from Last 10 Encounters: 06/07/24 56.4 kg (124 lb 5.4 oz) 06/28/23 59 kg (130 lb) 04/26/23 62.6 kg (138 lb) 01/18/23 61.7 kg (136 lb) Estimated Needs: Kcal/ K-35 Kcal Provided: 5774-8481 Kcal Needs Based On: Current weight Gm Protein/ Kg : 1.5-2 Protein Provided: 81-109 Protein Needs Based On: Current weight Metabolic Cart Study Results: Current Nutrition Intake: Diet Supplements: Roque Packet, Boost Very High Calorie Diet Order: Adult Diet Diet Texture: Regular Adult Carbohydrate Restriction: Consistent CHO 2 (1606-1762 Channing, 80 g/meal) Fat Restriction: Cardiac Other [...] Provided: Will monitor Pertinent home medications: reviewed Sabianism needs: Nutrition Focused Physical Exam: Physical exam [...] clean utility). -Document PO intake in flowsheet Nutrition Monitoring and Goals: - Will monitor PO intake, weight, skin, labs, nutrition status - Improved PO intake - monitor elytes (ongoing) - monitor ostomy output - Pt will maintain body weight throughout hospital admission (ongoing) - ostomy diet education prior to d/c- completed -f/u NFPE as able Acuity Level: [address], LD [1] Past Medical History: Diagnosis Date Anxiety COPD (chronic obstructive pulmonary disease) ([facility]) 05/01/2024 Continue Duo nebs q6 SPO2 goal >88% Depression GERD (gastroesophageal reflux disease) 05/01/2024 Continue Protonix 40 mg daily Hyperkalemia 05/06/2024 Now resolved, pt with hypokalemia requiring replacement On mechanically assisted ventilation ([facility]) 05/06/2024 Arrived to ICU intubated 05/07 extubated to [facility] 05/08 resolved Tobacco use 05/01/2024 Slot Host for smoking 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 Complicates all [...] SURGERY * Progress Notes - Keisha Sabillon Caden - 06/07/2024 11:25 AM EDT Occupational Therapy Re-Assessment Patient Name: Rere Hunter Today's Date: 06/07/2024 OT Discharge Recommendations: LTACH Equipment Recommended: Defer to facility History Rere Hunter is 53 y.o. female admitted 05/01/2024 for work-up of CAD, multiple vessel. Hospital Course 1. S/P CABG x 4 2. CAD, multiple vessel 3. Cardiac volume overload 4. Colon perforation ([facility]) 5. Abdominal fluid collection Procedures 05/23/2024 Procedure(s): LAPAROTOMY, EXPLORATORY, possible bowel resection, possible ostomy COLECTOMY, PARTIAL Past Medical History Patient has a past medical history of Anxiety, COPD (chronic obstructive pulmonary disease) ([facility]) (05/01/2024), Depression, GERD (gastroesophageal reflux disease) (05/01/2024), Hyperkalemia (05/06/2024), On mechanically assisted ventilation ([facility]) (05/06/2024), Tobacco use (05/01/2024), and T remor (05/01/2024). Past Surgical History Patient has a past surgical history that includes section, classic; Cholecystectomy; Shoulder surgery; Abdominal adhesion surgery; Hand surgery (Right); and Coronary artery bypass graft (05/06/2024). Precautions Medical Precautions: Fall precautions, Sternal Subjective Pt agreeable to participate in OT session. Participants in Care Family/Caregiver Present: No Family/Caregiver: Adult Son Dynamite Cartridge Crimper: Not Applicable Presentation Oxygen Therapy: None (Room [...] admission Level of Mobility: Ambulatory- community Mobility [place]: Independent gait without device (pt is the [...] Mobility Bed Mobility Exam: Scooting/Bridging Level of [place]: Maximum assist (25% patient's effort) (Seated scooting hips towards EOB withuse of draw sheet.) Physical/Nonphysical Assist: Verbal Cues, Nonverbal cues (demo/gestures) Assistive Device: Other (draw sheet) Bed Mobility Exam: Supine to Sit Level of [place]: Maximum assist (25% patient's effort) Physical/Nonphysical Assist: Verbal Cues, Set-up required Assistive Device: Other (drawsheet) Bed Mobility Exam: Sit to Supine Level of [place]: Minimum assist (75% patient's effort) Physical/Nonphysical Assist: Nonverbal cues (demo/gestures), Verbal Cues, Additional assist utilized for safety Transfers Transfer Exam: Sit to stand Level of [place]: Contact guard Physical/Nonphysical Assist: Verbal Cues, Set-up required Assistive Device: Rollator Transfer Exam: Stand to Sit Level of [place]: Contact guard Physical/Nonphysical Assist: Verbal Cues, Set-up required Assistive Device: Rollator Toilet Transfer Level of [place]: Minimum assist (75% patient's effort) Physical/Nonphysical Assist: [...] dynamic balance and safety awareness. Standardized Assessments [facility] 6-Click Daily Activities Help from Other: Don/Doff Regular Lower Body Clothings: Little Help From Other: Bathing: Little Help From Other: Toileting: Little Help From Other: Don/Doff Upper Body Clothings: Little Help From Other: Grooming: Little Help From Other: Eating Meals: None [facility] 6 Click - Daily Activities Score: [...] 3. Cardiac volume overload 4. Colon perforation ([facility]) 5. Abdominal fluid collection Procedures 05/23/2024 Procedure(s): LAPAROTOMY, EXPLORATORY, possible bowel resection, possible ostomy COLECTOMY, PARTIAL Past Medical History Patient has a past medical history of Anxiety, COPD (chronic obstructive pulmonary disease) ([facility]) (05/01/2024), Depression, GERD (gastroesophageal reflux disease) (05/01/2024), Hyperkalemia (05/06/2024), On mechanically assisted ventilation ([facility] [place]) (05/06/2024), Tobacco use (05/01/2024), and T remor [...] admission Level of Mobility: Ambulatory- community Mobility [place]: Independent gait without device (pt is the [...] Mobility Bed Mobility Exam: Scooting/Bridging Level of [place]: Maximum assist (25% patient's effort) Physical/Nonphysical Assist: Verbal Cues, Set-up required, Additional assist utilized for safety Assistive Device: Other (draw sheet to scoot to EOB) Bed Mobility Exam: Supine to Sit Level of [place]: Maximum assist (25% patient's effort) Physical/Nonphysical Assist: Verbal Cues, Set-up required Assistive Device: Other (draw sheet) Bed Mobility Exam: Sit to Supine Level of [place]: Minimum assist (75% patient's effort) Physical/Nonphysical Assist: Nonverbal cues (demo/gestures), Verbal Cues, Additional assist utilized for safety Transfers Transfer Exam: Sit to stand Level of [place]: Contact guard Physical/Nonphysical Assist: Verbal Cues, Set-up required Assistive Device: Rollator Transfer Exam: Stand to Sit Level of [place]: Contact guard Physical/Nonphysical Assist: Verbal Cues, Set-up required Assistive Device: Rollator Toilet Transfer Level of [place]: Minimum assist (75% patient's effort) Physical/Nonphysical Assist: [...] support. Standardized Assessments Standardized Assessments Standardized Assessments: [facility] 6-Clicks Mobility Assessment [facility] 6-Clicks Mobility Assessment Difficulty patient has turning [...] railing?: A little [facility] 6-Clicks Mobility Assessment Total : 17 No data recorded Standardized Assessments Standardized Assessments Standardized Assessments: [facility] 6-Clicks Mobility Assessment [facility] 6-Clicks Mobility Assessment Difficulty patient has turning [...] railing?: A little [facility] 6-Clicks Mobility Assessment Total : 17 No [...] Value Units Date/Time Blood Culture (Aerobic/Anaerobet Set) [[id number]] Collected: 05/23/24 1020 Order Status: Completed Specimen: Blood, Venous Updated: 05/24/24 1101 Culture No growth at day 1 Fungal Blood Culture [[id number]] Collected: 05/17/241812 Order Status: Completed Specimen: Blood, Venous Updated: 05/24/24 0638 Culture No Fungal Growth at 1 Week AFB Blood Culture [[id number]] Collected: 05/17/241812 Order Status: Completed Specimen: Blood, [...] Weight: 61.1 kg (134 lb 12.8 oz) [place] body weight: 47.8 kg (105 lb 4.8 oz) Adjusted ideal body weight: 52.8 kg (116 lb 5.7 oz) (126.25%) of IBW Body mass index is 25.13 kg/m??. Adjusted wt: 50.9 kg (if over 125% of IBW) CENTRAL IV Access: PICC (05/18/24) Estimated Nutritional Needs: HBE: 1153 Stress Factor: 1.2-1.4 Total Calories/day: 4014-7325 Protein (amino acids): 1.3-1.6 grams/kg Protein (Amino [...] plan with the IV room. Thank you! bD Kline, PharmD Candidate 2024 Preceptor - Moni Méndez, MagalieD [1] Patient Active Problem List Diagnosis Anxiety and depression COPD (chronic obstructive pulmonary disease) ([facility]) CAD, multiple vessel NSTEMI (non-ST elevated myocardial infarction) ([facility]) GERD (gastroesophageal reflux disease) Leukocytosis Hyperlipidemia THOM (obstructive sleep apnea) S/P CABG x 4 Hypertension Cardiac volume overload Hypoglycemia Nausea with vomiting Acute blood loss anemia (ABLA) Gastric perforation (CMS/HCC) On total parenteral nutrition (TPN) Ileus ([facility]/HCC) Electrolyte abnormality Colon perforation (CMS/HCC) Post-op pain Delirium [2] Past Medical History: Diagnosis Date Anxiety COPD (chronic obstructive pulmonary disease) (CMS/HCC) 05/01/2024 Continue Duo nebs q6 SPO2 goal >88% Depression GERD (gastroesophageal reflux disease) 05/01/2024 Continue Protonix 40 mg daily Hyperkalemia 05/06/2024 Now resolved, pt with hypokalemia requiring replacement On mechanically assisted ventilation ([facility]) 05/06/2024 Arrived to ICU intubated 05/07 extubated to 4LNC 05/08 resolved Tobacco use 05/01/2024 Slot Host for smoking 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 Complicates all [...] placed in IR Follow cultures Cardiothoracic Surgery [phone] * Progress Notes - Heather Ram - 06/07/2024 8:28 AM EDT Case Management Adult Progress Note Rere Hunter 53 y.o. female CSN: [id number] Admission: 05/01/2024 11:01 PM Primary Problem: CAD, [...] red granulation conts sheridan in the center, jaecy wound prepped with cavalon and drape, Khushboo strip at edge near ostomy for seal, 1 black foam applied with good seal @ 125 Wound Team Plan: Wound care will follow up at regular intervals while inpatient; bedside nursing tofollow wound care recommendations as ordered and please re- consult sooner for new changes or concerns prior to follow up. Lester Lazo RN OCN 06/06/2024 12:46 PM * Progress Notes - [...] 1030 Stomal Appliance 2 piece;Flat Barrier/Pouch;Flat Ring;Barrier Olpe/Wipe 06/06/24 1030 Site Assessment Intact;Moist;Raised;Red 06/06/24 1030 [...] H/H 10.2/31.0 - 06/01: H/H 9.7/29.3 - 20: H/H 9.2/28.8 - 06/04: H/H 9.4/29.3 - [...] in IR 06/04 Follow cultures Cardiothoracic Surgery [phone] * Progress Notes - Carmelita Snyder MD [...] mg q6 COPD (chronic obstructive pulmonary disease) ([facility]) Yes Overview Addendum 05/23/2024 8:43 AM by Marybel Suarez APRN Duo nebs q6 Wean O2 for SPO2 goal >88% NSTEMI (non-ST elevated myocardial infarction) ([facility]) Yes Overview Addendum 05/22/2024 11:00 AM by Jose Aburto MD Diagnosed at OSH with elevated troponins of 0.05 to 0.23 to 0.16 Started on heparin drip BUTCHER'S ASSISTANT, 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 Repeat troponins pending 05/07 [...] Overview Addendum 05/23/2024 8:50 AM by Marybel Suarez APRN Remains febrile with elevated EBC Cultures ordered and pending Hyperlipidemia Yes Overview Signed 05/23/2024 8:47 AM by Marybel Suarez, BATTERY PARTS ASSEMBLER Restart statin when no longer NPO THOM [...] Addendum 05/23/2024 8:46 AM by Marybel Suarez, BATTERY PARTS ASSEMBLER Resolved once TPN started Nausea with vomiting No Overview Addendum 05/28/2024 8:26 AM by Sidney Jackson MD TPN running Advance PO diet as able Acute blood loss anemia (ABLA) No Overview Addendum 05/23/2024 8:43 AM by Marybel Suarez, BATTERY PARTS ASSEMBLER Lab Results Component Value Date HGB 9.0 [...] 97 93* 95* 95* CO2 mmol/L 23 26 24 23 21* 20* 20* 25 CALCIUM mg/dL 7.5* 7.7* 7.7* 7.7* 7.9* 7.9* 8.0* 8.3* PHOSPHORUS mg/dL -- -- -- -- -- 5.8* 5.2* 4.4 MAGNESIUM mg/dL 2.1 2.0 2.1 2.0 -- 2.3 2.3 2.0 Results from last 7 days Lab Units 06/06/24 0403 06/05/24 0612 06/04/24 0556 06/03/24 0108 06/02/24 0102 06/01/24 0120 05/31/24 0250 WBC 10*3/uL 24.98* 19.81* [...] Value Units Date/Time Blood Culture (Aerobic/Anaerobet Set) [[id number]] Collected: 05/23/24 1020 Order Status: Completed Specimen: Blood, Venous Updated: 05/24/24 1101 Culture No growth at day 1 Fungal Blood Culture [[id number]] Collected: 05/17/241812 Order Status: Completed Specimen: Blood, Venous Updated: 05/24/24 0638 Culture No Fungal Growth at 1 Week AFB Blood Culture [[id number]] Collected: 05/17/241812 Order Status: Completed Specimen: Blood, Venous Updated: 05/24/24637 AFB Culture No Mycobacterial Growth at 1 Week Vitals: Visit Vitals BP 93/63 (BP Location: Right arm, Patient Position: Lying) Pulse 80 Temp 36.4 ??C (97.5 ??F) (Oral) Resp 14 Dudley Coma Scale Score: 15 Shaan Scale Score: [...] 65 mL/hr, Last Rate: 65 mL/hr (06/05/242157) Current Anthropometrics: Height: 154.9 cm (5' 0.98 ) Weight: 61.1 kg (134 lb 12.8 oz) [place] body weight: 47.8 kg (105 lb 4.8 oz) Adjusted ideal body weight: 52.8 kg (116 lb 5.7 oz) (126.25%) of IBW Body mass index is 25.13 kg/m??. Adjusted wt: 50.9 kg (if over 125% of IBW) CENTRAL IV Access: PICC (05/18/24) Estimated Nutritional Needs: HBE: 1153 Stress Factor: 1.2-1.4 Total Calories/day: 0898-8204 Protein (amino acids): 1.3-1.6 grams/kg Protein (Amino [...] room. Thank you! Marysol Hurtado, PharmD PGY1 Roller Skater Available via secure chat [1] Patient Active [...] Date Anxiety COPD (chronic obstructive pulmonary disease) ([facility]) 05/01/2024 Continue Duo nebs q6 SPO2 goal >88% Depression GERD (gastroesophageal reflux disease) 05/01/2024 Continue Protonix 40 mg daily Hyperkalemia 05/06/2024 Now resolved, pt with hypokalemia requiring replacement On mechanically assisted ventilation ([facility]) 05/06/2024 Arrived to ICU intubated 05/07 extubated to 4LNC 05/08 resolved Tobacco use 05/01/2024 Slot Host for smoking 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 Complicates all [...] troponins of 0.05 to 0.23 to 0.16 [facility] reveal mvCAD - S/p CABG x4 [...] in IR 06/04 Follow cultures Cardiothoracic Surgery [phone] * Progress Notes - Keisha Sabillon - 06/05/2024 10:27 AM EDT Occupational Therapy Treatment Patient Name: Rere Hunter Today's Date: 06/05/2024 OT Discharge Recommendations: LTACH Equipment Recommended: Defer to facility Subjective Pt agreeable to participate in OT session. Participants in Care Family/Caregiver Present: No Family/Caregiver: Adult Son Dynamite Cartridge Crimper: Not Applicable Presentation Oxygen Therapy: None (Room [...] Mobility Bed Mobility Exam: Scooting/Bridging Level of [place]: Maximum assist (25% patient's effort) (Seated scooting hips towards EOB withuse of draw sheet.) Physical/Nonphysical Assist: Verbal Cues, Nonverbal cues (demo/gestures) Assistive Device: Other (draw sheet) Bed Mobility Exam: Supine to Sit Level of [place]: Moderate assist (50% patient's effort) (For trunk upright.) Physical/Nonphysical Assist: Verbal Cues, Nonverbal cues (demo/gestures), Additional assist utilized for safety Assistive Device: Other (draw sheet) Bed Mobility Exam: Sit to Supine Level of [place]: Minimum assist (75% patient's effort) Physical/Nonphysical Assist: Nonverbal cues (demo/gestures), Verbal Cues, Additional assist utilized for safety Transfers Transfer Exam: Sit to stand Level of [place]: Contact guard Physical/Nonphysical Assist: Verbal Cues, Set-up required, 1 person + 1 person to manage equipment Assistive Device: Rollator Transfer Exam: Stand to Sit Level of [place]: Contact guard Physical/Nonphysical Assist: Verbal Cues, 1 person + 1 person to manage equipment, Set-up required Assistive Device: Rollator Toilet Transfer Level of [place]: Minimum assist (75% patient's effort) Physical/Nonphysical Assist: [...] Mobility Bed Mobility Exam: Scooting/Bridging Level of [place]: Maximum assist (25% patient's effort) Physical/Nonphysical Assist: Verbal Cues, Set-up required, Additional assist utilized for safety Assistive Device: Other (draw sheet to scoot to EOB) Bed Mobility Exam: Supine to Sit Level of [place]: Maximum assist (25% patient's effort) Physical/Nonphysical Assist: Verbal Cues, Set-up required, Additional assist utilized for safety Bed Mobility Exam: Sit to Supine Level of [place]: Minimum assist (75% patient's effort) Physical/Nonphysical Assist: Nonverbal cues (demo/gestures), Verbal Cues, Additional assist utilized for safety Transfers Transfer Exam: Sit to stand Level of [place]: Contact guard Physical/Nonphysical Assist: Verbal Cues, Set-up required, 1 person + 1 person to manage equipment Assistive Device: Rollator Transfer Exam: Stand to Sit Level of [place]: Contact guard Physical/Nonphysical Assist: Verbal Cues, 1 [...] Value Units Date/Time Blood Culture (Aerobic/Anaerobet Set) [[id number]] Collected: 05/23/24 1020 Order Status: Completed Specimen: Blood, Venous Updated: 05/24/24 1101 Culture No growth at day 1 Fungal Blood Culture [[id number]] Collected: 05/17/241812 Order Status: Completed Specimen: Blood, Venous Updated: 05/24/2438 Culture No Fungal Growth at 1 Week AFB Blood Culture [[id number]] Collected: 05/17/241812 Order Status: Completed Specimen: Blood, [...] Weight: 61.1 kg (134 lb 12.8 oz) [place] body weight: 47.8 kg (105 lb 4.8 oz) Adjusted ideal body weight: 52.8 kg (116 lb 5.7 oz) (126.25%) of IBW Body mass index is 25.13 kg/m??. Adjusted wt: 50.9 kg (if over 125% of IBW) CENTRAL IV Access: PICC (05/18/24) Estimated Nutritional Needs: HBE: 1153 Stress Factor: 1.2-1.4 Total Calories/day: 3086-7157 Protein (amino acids): 1.3-1.6 grams/kg Protein (Amino [...] room. Thank you! Marysol Hurtado, PharmD PGY1 Roller Skater Available via secure chat [1] Patient Active Problem List Diagnosis Anxiety and depression COPD (chronic obstructive pulmonary disease) ([facility]) CAD, multiple vessel NSTEMI (non-ST elevated myocardial infarction) ([facility]) GERD (gastroesophageal reflux disease) Leukocytosis Hyperlipidemia THOM (obstructive sleep apnea) S/P CABG x 4 Hypertension Cardiac volume overload Hypoglycemia Nausea with vomiting Acute blood loss anemia (ABLA) Gastric perforation ([facility]) On total parenteral nutrition (TPN) Ileus ([facility]) Electrolyte abnormality Colon perforation ([facility]) Post-op pain Delirium [2] Past Medical History: Diagnosis Date Anxiety COPD (chronic obstructive pulmonary disease) ([facility]) 05/01/2024 Continue Duo nebs q6 SPO2 goal >88% Depression GERD (gastroesophageal reflux disease) 05/01/2024 Continue Protonix 40 mg daily Hyperkalemia 05/06/2024 Now resolved, pt with hypokalemia requiring replacement On mechanically assisted ventilation ([facility]) 05/06/2024 Arrived to ICU intubated 05/07 extubated to 4LNC 05/08 resolved Tobacco use 05/01/2024 Slot Host for smoking 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 Complicates all [...] Edited by: Carmelita Snyder MD at 06/05/2024 0792 Relevant review of systems was obtained as [...] Addendum 05/23/2024 8:43 AM by Marybel Suarez, BATTERY PARTS ASSEMBLER Continue home bupropion XL 300 mg daily Continue home citalopram 40 mg daily Continue PRN hydroxyzine 25 mg q6 COPD (chronic obstructive pulmonary disease) ([facility]) Yes Overview Addendum 05/23/2024 8:43 AM by Marybel Suarez, BATTERY PARTS ASSEMBLER Duo nebs q6 Wean O2 for SPO2 goal >88% NSTEMI (non-ST elevated myocardial infarction) ([facility]) Yes Overview Addendum 05/22/2024 11:00 AM by Jose Aburto MD Diagnosed at OSH with elevated troponins of 0.05 to 0.23 to 0.16 Started on heparin drip BUTCHER'S ASSISTANT, 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 Repeat troponins pending 05/07 [...] Addendum 05/23/2024 8:50 AM by Marybel Suarez, BATTERY PARTS ASSEMBLER Remains febrile with elevated EBC Cultures ordered and pending Hyperlipidemia Yes Overview Signed 05/23/2024 8:47 AM by Marybel Suarez, BATTERY PARTS ASSEMBLER Restart statin when no longer NPO THOM (obstructive sleep apnea) Yes Overview Addendum 05/23/2024 8:45 AM by Marybel Suarez, BATTERY PARTS ASSEMBLER Refusing home CPAP remains on NC S/P CABG x 4 Not Applicable Overview Addendum 05/23/2024 8:45 AM by Marybel Suarez, BATTERY PARTS ASSEMBLER 05/06 4vCABG w/ Dr. Austin Aspirin, statin, beta stacey as clinically appropriate Hypertension Yes Overview Addendum 05/23/2024 8:47 AM by Marybel Suarez, ARASH Metop IV while NPO Restart PO metop when appropriate Cardiac volume overload No Overview Addendum 05/18/2024 10:24 AM by Sidney Jackson MD Diuresis as clinically indicated Hypoglycemia No Overview Addendum 05/23/2024 8:46 AM by Marybel Suarez, BATTERY PARTS ASSEMBLER Resolved once TPN started Nausea with vomiting [...] 1601 Stomal Appliance 2 piece;Flat Barrier/Pouch;Flat Ring;Barrier Olpe/Wipe 06/04/24 1601 Site Assessment Intact;Moist;Raised;Red 06/04/24 1601 [...] for the active dates in [facility] under the I/O-Calorie Count section in the flow sheet. If no PO food consumed for a particular meal, please document 0% of meal . Results to follow. Garrett Ruiz DTR * Progress Notes - Shola Sheridan, BATTERY PARTS ASSEMBLER - 06/04/2024 12:42 PM EDT CVT Progress [...] troponins of 0.05 to 0.23 to 0.16 [facility] reveal mvCAD - S/p CABG x4 [...] placement in IR Follow cultures Cardiothoracic Surgery [phone] * Consults - Gretchen Brothers RD - 06/04/2024 11:18 AM EDT Adult Nutrition Evaluation Note Rere Hunter 53 y.o. female CSN: [id number] Room/Bed 117/117A Nutrition evaluation type: follow-up Reason [...] O2 Delivery Method: Nasal cannula with capnography Dudley Coma Scale Score: 15 Shaan Scale Score: [...] (Calculated): 22.71 Weight Evaluation: Overweight (BMI 25-29.9) [place] Body Weight (kg): 47.7 Percent [place] Body Weight: 114 Adjusted Body Weight (kg): 50.9 Wt Readings from Last 10 Encounters: 06/04/24 54.5 kg (120 lb 2.4 oz) 06/28/23 59 kg (130 lb) 04/26/23 62.6 kg (138 lb) 01/18/23 61.7 kg (136 lb) Estimated Needs: Kcal/ K-35 Kcal Provided: 9405-8129 Kcal Needs Based On: Current weight Gm Protein/ Kg : 1.5-2 Protein Provided: 81-109 Protein Needs Based On: Current weight Metabolic Cart Study Results: Current Nutrition Intake: Diet Supplements: Roque Packet, Boost Very High Calorie Diet Order: NPO Diet Texture: Regular Adult Carbohydrate Restriction: Consistent CHO 2 (0931-6207 Channing, 80 g/meal) Fat Restriction: Cardiac Other [...] Provided: Will monitor Pertinent home medications: reviewed Sabianism needs: Nutrition Focused Physical Exam: Physical exam [...] Arrived to ICU intubated 05/07 [facility]ated to [facility] 05/08 resolved Tobacco use 05/01/2024 Slot Host for smoking 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 Complicates all [...] repair SHOULDER SURGERY * Progress Notes - Arnold, Db C - 06/04/2024 11:05 AM EDT Pharmacist TPN [...] Lab Units 06/04/24 0556 06/03/24 0108 06/02/2410106/01/24 01205/31/24 0250 05/30/24 0513 05/29/24 0535 WBC 10*3/uL [...] Value Units Date/Time Blood Culture (Aerobic/Anaerobet Set) [[id number]] Collected: 05/23/24 1020 Order Status: Completed Specimen: Blood, Venous Updated: 05/24/24 1101 Culture No growth at day 1 Fungal Blood Culture [[id number]] Collected: 05/17/241812 Order Status: Completed Specimen: Blood, Venous Updated: 05/24/24 0638 Culture No Fungal Growth at 1 Week AFB Blood Culture [[id number]] Collected: 05/17/241812 Order Status: Completed Specimen: Blood, [...] of Roque Fruit Punch Packet One 05/29/24 0246 Current Medications acetaminophen, 500 mg, Oral, q6h [...] Weight: 61.1 kg (134 lb 12.8 oz) [place] body weight: 47.8 kg (105 lb 4.8 oz) Adjusted ideal body weight: 52.8 kg (116 lb 5.7 oz) (126.25%) of IBW Body mass index is 25.13 kg/m??. Adjusted wt: 50.9 kg (if over 125% of IBW) CENTRAL IV Access: PICC (05/18/24) Estimated Nutritional Needs: HBE: 1153 Stress Factor: 1.2-1.4 Total Calories/day: 5139-9636 Protein (amino acids): 1.3-1.6 grams/kg Protein (Amino [...] and depression COPD (chronic obstructive pulmonary disease) ([facility]) CAD, multiple vessel NSTEMI (non-ST elevated myocardial infarction) ([facility]) GERD (gastroesophageal reflux disease) Leukocytosis Hyperlipidemia THOM (obstructive sleep apnea) S/P CABG x 4 Hypertension Cardiac volume overload Hypoglycemia Nausea with vomiting Acute blood loss anemia (ABLA) Gastric perforation ([facility]) On total parenteral nutrition (TPN) Ileus ([facility]) Electrolyte abnormality Colon perforation ([facility]) Post-op pain Delirium [2] Past Medical History: Diagnosis Date Anxiety COPD (chronic obstructive pulmonary disease) ([facility]) 05/01/2024 Continue Duo nebs q6 SPO2 goal >88% Depression GERD (gastroesophageal reflux disease) 05/01/2024 Continue Protonix 40 mg daily Hyperkalemia 05/06/2024 Now resolved, pt with hypokalemia requiring replacement On mechanically assisted ventilation ([facility]) 05/06/2024 Arrived to ICU intubated 05/07 extubated to 4LNC 05/08 resolved Tobacco use 05/01/2024 Slot Host for smoking 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 Complicates all [...] SURGERY Cosigned by Moni Méndez PharmD at 06/04/2024 1:59 PM EDT Associated attestation - Moni Méndez PharmD - 06/04/2024 1:59 PM EDT I have reviewed the students assessment and plan and agree with the below statements * Arsh Padron RN - 06/04/2024 10:48 AM EDT Images from the original note were not included. [address]26 Taking Care of Your Flushable Drain Tube [...] 1st floor [address], [address] [place] [id number] Caring for your drain tube It is [...] and warm water or an alcohol-based hand pan cleaner ?? Disposable medical gloves - (optional) [...] ?? Wipe the skin gently in a [place], moving away from the drain tube in [...] and warm water or an alcohol-based hand pan cleaner ?? Disposable medical gloves - (Optional) [...] hands with soap and water or hand pan cleaner. They can also put on a [...] syringe to the needleless port with a [id number]-hoh-xusfj motion. 6. Flush the tube: Push on [...] [facility], [address]st [facility] [address] [facility] [address] [place] [id number] * Nursing Note - Arsh Mueller RN [...] not available in floor stock, contact Materials [phone]. *Saline flushes can be supplied via [employer] to Beds. About the accordion drainage system [...] the drain. Contact the [facility] at [phone], or discuss at your next follow-up visit. [...] the drain system dry. Follow up with [facility] at [phone] for appointments or questions. Follow the [id number] directions in the Flushable Drain Care handout. [...] Follow up and other appointments with the [facility] First follow-up visit. We will call you to schedule a follow-up visit with the Vascular and Interventional Radiology Clinic. You should be seen in our clinic within 2 weeks after leaving the hospital. If you have not been contacted to schedule this appointment, please contact the [facility] at [phone]. To schedule or reschedule a clinic visit, call [phone]. To reschedule a procedure, call our schedulers at [phone], option 4. [facility] location and phone number Vascular & Interventional Radiology Clinic [facility], 1st floor [address], [address] [place] [address] In case of emergency For any emergency, please go to the nearest Emergency Room or dial 911. If you have questions or concerns about the drain Tuesday-Tuesday, 8 a.m.-4:30 p.m., call the [facility] at [phone]. After hours, weekends, and holidays, call [phone]. Ask for the Interventional Radiology provider web content coordinator. Drainage Log You must keep a daily [...] Radiology Brief Postprocedure Note Attending: Dr. Elmore Ditch Inspector: None Pre-operative Diagnosis: Perisplenic fluid collection Post-operative [...] been discussed with the patient and/or their plastic products sales representative. All questions answered and they agree [...] of Anxiety, COPD (chronic obstructive pulmonary disease) ([facility]) (05/01/2024), Depression, GERD (gastroesophageal reflux disease) (05/01/2024), Hyperkalemia (05/06/2024), On mechanically assisted ventilation ([facility]) (05/06/2024), Tobacco use (05/01/2024), and Tremor (05/01/2024). [...] tablet 500 mg 500 mg Oral q6h [facility] Radha Dickerson, DO 500 mg at 06/04/24 0555 Adult 2-in-1 TPN 65 mL/hr Intravenous Continuous Maite Austin MD 65 mL/hr at 06/03/247 New Bag at 06/03/242126 aspirin chewable tablet [...] 6 mg 6 mg Oral Nightly Sidney aJckson MD 6 mg at 06/03/242122 methocarbamol (Robaxin) tablet 500 mg 500 mg [...] MD 120 mg at 250 sodium chloride (Sullivan) 0.65 % nasal spray 1 spray 1 [...] Note Rere Hunter 53 y.o. female CSN: [id number] Admission: 05/01/2024 11:01 PM Primary Problem: CAD, [...] Drain (mL) 06/02/24 0700 - 06/02/24 18506/02/24 190 - 06/03/24 0659 06/03/24 0700 - 06/03/24 1859 06/03/24 1900 [...] mg q6 COPD (chronic obstructive pulmonary disease) ([facility]) Yes Overview Addendum 05/23/2024 8:43 AM by Marybel Suarez APRN Duo nebs q6 Wean O2 for SPO2 goal >88% NSTEMI (non-ST elevated myocardial infarction) ([facility]) Yes Overview Addendum 05/22/2024 11:00 AM by Jose Aburto MD Diagnosed at OSH with elevated troponins of 0.05 to 0.23 to 0.16 Started on heparin drip BUTCHER'S ASSISTANT, 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 Repeat troponins pending 05/07 [...] Addendum 05/23/2024 8:50 AM by Marybel Suarez, BATTERY PARTS ASSEMBLER Remains febrile with elevated EBC Cultures ordered and pending Hyperlipidemia Yes Overview Signed 05/23/2024 8:47 AM by Marybel Suarez, BATTERY PARTS ASSEMBLER Restart statin when no longer NPO THOM (obstructive sleep apnea) Yes Overview Addendum 05/23/2024 8:45 AM by Marybel Suarez, BATTERY PARTS ASSEMBLER Refusing home CPAP remains on NC S/P CABG x 4 Not Applicable Overview Addendum 05/23/2024 8:45 AM by Marybel Suarez, BATTERY PARTS ASSEMBLER 05/06 4vCABG w/ Dr. Austin Aspirin, statin, beta stacey as clinically appropriate Hypertension Yes Overview Addendum 05/23/2024 8:47 AM by Marybel Suarez, BATTERY PARTS ASSEMBLER Metop IV while NPO Restart PO metop when appropriate Cardiac volume overload No Overview Addendum 05/18/2024 10:24 AM by Sidney Jackson MD Diuresis as clinically indicated Hypoglycemia No Overview Addendum 05/23/2024 8:46 AM by Marybel Suarez, BATTERY PARTS ASSEMBLER Resolved once TPN started Nausea with vomiting No Overview Addendum 05/28/2024 8:26 AM by Sidney Jackson MD TPN running Advance PO diet as able Acute blood loss anemia (ABLA) No Overview Addendum 05/23/2024 8:43 AM by Marybel Suarez, BATTERY PARTS ASSEMBLER Lab Results Component Value Date HGB 9.0 [...] Signed 05/23/2024 8:50 AM by Marybel Suarez, BATTERY PARTS ASSEMBLER - monitor and replace prn Post-op pain [...] troponins of 0.05 to 0.23 to 0.16 [facility] reveal mvCAD - S/p CABG x4 [...] for IR abscess drainage tomorrow Cardiothoracic Surgery [phone] * Progress Notes - Uriah Sherman, PharmD [...] Lab Units 06/03/24 0108 06/02/24 0708 06/02/24 01006/01/24 0120 05/31/24 0250 05/30/24 0513 05/29/24 0700 [...] Results from last 7 days Lab Units 06/03/2410706/02/2410106/01/24 0120 05/31/24 0250 05/30/24 0513 05/29/24 0535 05/28/24 0047 WBC 10*3/uL 20.40* 33.90* 33.03* 26.51* 23.21* 22.52* 25.00* HEMOGLOBIN g/dL 9.2* 9.2* 9.7* 10.2* 9.7* 9.3* 9.7* HEMATOCRIT % 28.8* 28.7* 29.3* 31.0* 29.7* 28.9* 30.1* PLATELETS 10*3/uL 689* 702* 644* 670* 603* 528* 442* Results from last 7 days Lab Units 06/02/24 01006/01/24 0120 05/31/24 0250 05/30/24 0513 [...] Value Units Date/Time Blood Culture (Aerobic/Anaerobet Set) [[id number]] Collected: 05/23/24 1020 Order Status: Completed Specimen: Blood, Venous Updated: 05/24/24 1101 Culture No growth at day 1 Fungal Blood Culture [[id number]] Collected: 05/17/241812 Order Status: Completed Specimen: Blood, Venous Updated: 05/24/24 0638 Culture No Fungal Growth at 1 Week AFB Blood Culture [[id number]] Collected: 05/17/241812 Order Status: Completed Specimen: Blood, Venous Updated: 05/24/24 0638 AFB Culture No Mycobacterial Growth at 1 Week Vitals: Visit Vitals BP 123/74 (BP Location: Right arm, Patient Position: Lying) Pulse 80 Temp 36.8 ??C (98.2 ??F) (Oral) Resp 20 Dudley Coma Scale Score: 15 Shaan Scale Score: 18 Oxygen Therapy: None (Room air) Skin Integrity: Bruising ([place]orn[place] (STEP DOWN SPECIALIST, glued), right colostomy, s/p chest tube sites, mid-abdominal wound vac (black foam), L SVG site (STEP DOWN SPECIALIST and glued)) Edema: Generalized Wt Readings from [...] Weight: 61.1 kg (134 lb 12.8 oz) [place] body weight: 47.8 kg (105 lb 4.8 oz) Adjusted ideal body weight: 52.8 kg (116 lb 5.7 oz) (126.25%) of IBW Body mass index is 25.13 kg/m??. Adjusted wt: 50.9 kg (if over 125% of IBW) CENTRAL IV Access: PICC (05/18/24) Estimated Nutritional Needs: HBE: 1153 Stress Factor: 1.2-1.4 Total Calories/day: 8225-4317 Protein (amino acids): 1.3-1.6 grams/kg Protein (Amino [...] Date Anxiety COPD (chronic obstructive pulmonary disease) ([facility]) 05/01/2024 Continue Duo nebs q6 SPO2 goal >88% Depression GERD (gastroesophageal reflux disease) 05/01/2024 Continue Protonix 40 mg daily Hyperkalemia 05/06/2024 Now resolved, pt with hypokalemia requiring replacement On mechanically assisted ventilation ([facility]) 05/06/2024 Arrived to ICU intubated 05/07 extubated to 4LNC 05/08 resolved Tobacco use 05/01/2024 Slot Host for smoking 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 Complicates all [...] 06/02/2024 4:00 PM * Progress Notes - Shola Sheridan, BATTERY PARTS ASSEMBLER - 06/02/2024 1:39 PM EDT CVT Progress [...] TPN, 40 mL/hr, Last Rate: 40 mL/hr (06/01/242241) Adult 2-in-1 TPN, 65 mL/hr PRN medications: [...] troponins of 0.05 to 0.23 to 0.16 [facility] reveal mvCAD - S/p CABG x4 [...] for IR procedure on Tuesday Cardiothoracic Surgery [phone] * Consults - Lorena Phillips APRN - [...] Date Anxiety COPD (chronic obstructive pulmonary disease) ([facility]) 05/01/2024 Continue Duo nebs q6 SPO2 goal >88% Depression GERD (gastroesophageal reflux disease) 05/01/2024 Continue Protonix 40 mg daily Hyperkalemia 05/06/2024 Now resolved, pt with hypokalemia requiring replacement On mechanically assisted ventilation ([facility]) 05/06/2024 Arrived to ICU intubated 05/07 extubated to 4LNC 05/08 resolved Tobacco use 05/01/2024 Slot Host for smoking 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 Complicates all [...] is no recent study available for direct anov-yj-wybc comparison. Assessment & Plan: Perisplenic fluid collection [...] the care of this patient. Lorena Phillips, BATTERY PARTS ASSEMBLER Interventional Radiology [phone] [1] Past Surgical History: Procedure Laterality Date [...] 3 mL, Nebulization, q6h PRN, Trinity Yousif, BATTERY PARTS ASSEMBLER, 3 mL at 05/17/24 1551 lidocaine (Lidoderm) [...] mg, Intravenous, q6h PRN, 4 mg at 06/01/24 0059 OR [DISCONTINUED] ondansetron (Zofran) 4 MG/5ML solution 4 mg, 4 mg, Oral, q6h PRN, Jorge Luis La MD oxyCODONE (Roxicodone) immediate release tablet 5 mg, 5 mg, Oral, q6h PRN, 5 mg at 05/30/242008 OR oxyCODONE (Roxicodone) immediate release tablet 10 mg, 10 mg, Oral, q6h PRN, Sidney Jackson MD, 10 mg at 05/31/24 0212 pantoprazole (Protonix) EC tablet 40 mg, 40 mg, Oral, Daily, Shola Sheridan APRN, 40 mg at 06/02/24 08 phenol (Chloraseptic) 1.4 % mouth/throat spray 1 [...] 40 mEq, 40 mEq, Oral, Once, Maite Austni MD primidone (Mysoline) tablet 50 mg, 50 mg, Oral, BID, Radha Dickerson, , 50 mg at 06/02/24 0824 rosuvastatin (Crestor) tablet 40 mg, 40 mg, Oral, Nightly, Sidney Jackson MD, 40 mg at 06/01/24 2208 simethicone (Mylicon) chewable tablet 120 mg, 120 mg, Oral, q6h PRN, Sidney Jackson MD, 120 mg at 05/31/242022 sodium chloride (Sullivan) 0.65 % nasal spray 1 spray, 1 [...] mmol/L 21* 20* 20* 25 24 25 26 CALCIUM mg/dL 7.9* 7.9* 8.0* 8.3* [...] Value Units Date/Time Blood Culture (Aerobic/Anaerobet Set) [[id number]] Collected: 05/23/24 1020 Order Status: Completed Specimen: Blood, Venous Updated: 05/24/24 1101 Culture No growth at day 1 Fungal Blood Culture [[id number]] Collected: 05/17/241812 Order Status: Completed Specimen: Blood, Venous Updated: 05/24/24 0638 Culture No Fungal Growth at 1 Week AFB Blood Culture [[id number]] Collected: 05/17/241812 Order Status: Completed Specimen: Blood, Venous Updated: 05/24/24637 AFB Culture No Mycobacterial Growth at 1 Week Vitals: Visit Vitals BP 119/75 (BP Location: Right arm, Patient Position: Lying) Pulse 94 Temp 36.7 ??C (98 ??F) (Oral) Resp 24 Jaida Coma Scale Score: 15 Shaan Scale [...] Weight: 61.1 kg (134 lb 12.8 oz) [place] body weight: 47.8 kg (105 lb 4.8 oz) Adjusted ideal body weight: 52.8 kg (116 lb 5.7 oz) (126.25%) of IBW Body mass index is 25.13 kg/m??. Adjusted wt: 50.9 kg (if over 125% of IBW) CENTRAL IV Access: PICC (05/18/24) Estimated Nutritional Needs: HBE: 1153 Stress Factor: 1.2-1.4 Total Calories/day: 4632-5296 Protein (amino acids): 1.3-1.6 grams/kg Protein (Amino [...] the IV room. Thank you! Micheal Sherman, MagalieD Trauma/Emergency General Surgery [1] Patient Active Problem List Diagnosis Anxiety and depression COPD (chronic obstructive pulmonary disease) ([facility]) CAD, multiple vessel NSTEMI (non-ST elevated myocardial infarction) ([facility]) GERD (gastroesophageal reflux disease) Leukocytosis Hyperlipidemia THOM (obstructive sleep apnea) S/P CABG x 4 Hypertension Cardiac volume overload Hypoglycemia Nausea with vomiting Acute blood loss anemia (ABLA) Gastric perforation ([facility]) On total parenteral nutrition (TPN) Ileus ([facility]) Electrolyte abnormality Colon perforation ([facility]) Post-op pain Delirium [2] Past Medical History: Diagnosis Date Anxiety COPD (chronic obstructive pulmonary disease) ([facility]) 05/01/2024 Continue Duo nebs q6 SPO2 goal >88% Depression GERD (gastroesophageal reflux disease) 05/01/2024 Continue Protonix 40 mg daily Hyperkalemia 05/06/2024 Now resolved, pt with hypokalemia requiring replacement On mechanically assisted ventilation ([facility]) 05/06/2024 Arrived to ICU intubated 05/07 extubated to 4LNC 05/08 resolved Tobacco use 05/01/2024 Slot Host for smoking 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 Complicates all [...] Lenard Hallman MD SGE PGY-1 * Can KelleyOBI - Leola Montano RN - 06/01/2024 12:57 [...] does not seem to beworking properly. 1. Terminal Operator the tube near the skin and hold [...] Amount 09/22/08 7 a.m. 20ml * Can OnIR - Leola Montano RN - 06/01/2024 12:56 PM EDT Images from the original note were not included. 90749 Preventing a Surgical Site Infection A risk [...] The type of medicine you get will dependon what may be causing the infection. Most serious wound infections need wound care. In some cases,surgery may be needed on the infected wound. [...] of infection. ?? Controlled body temperature. A mjbio-jxdh-xsncnf temperature during or after surgery prevents oxygen [...] and water or with an alcohol-based hand chip drier before and after caring for you. Don?t [...] away. Last Reviewed Date: 2024 00:00:00 ?? [id number] [employer]. All rights reserved. This information is not intended as a substitute for professional medical care. Always follow your healthcare professional's instructions. * Can OnFHIR - Leola Montano RN - 06/01/2024 12:56 PM EDT Images from the original note were not included. 44665 Incision Care Reminder Keep all your follow-up [...] opens ?? Stitches that pull apart ?? Sheridan that fall out ?? Surgical tape that falls off before 7 days Last Reviewed Date: 2023 00:00:00 ?? [id number] [employer]. All rights reserved. This information is not intended as a substitute for professional medical care. Always follow your healthcare professional's instructions. * [facility] Leola Mont[facility] - 06/01/2024 12:56 [...] weekends. Last Reviewed Date: 2023 00:00:00 ?? 0905-2942 [employer]. All rights reserved. This information is not intended as a substitute for professional medical care. Always follow your healthcare professional's instructions. * [facility] - Leola Montano RN - 06/01/2024 12:56 PM EDT Images from the original note were not included. 95057 What You Should Know About Colectomy Being [...] medicines you take. That includes prescription and niqt-kxd-ewapptm medicines, vitamins, herbs, supplements, marijuana, and street [...] pocket Last Reviewed Date: 2023 00:00:00 ?? 4286-2524 [employer]. All rights reserved. This information is not intended as a substitute for professional medical care. Always follow your healthcare professional's instructions. * Can [facility] - Leola Montano RN - 06/01/2024 12:56 PM EDT Images from the original note were not included. 45356 Exploratory Laparotomy Exploratory laparotomy is surgery to [...] about any medicines you?re taking. This includes xohj-cff-awkwopkxkcjejavh, prescription medicines, herbs, illegal drugs, vitamins, and [...] anesthesia. Last Reviewed Date: 2024 00:00:00 ?? 6769-7701 [employer]. All rights reserved. This information is not intended as a substitute for professional medical care. Always follow your healthcare professional's instructions. * Can Abi - Charmaine Leola E, RN - 06/01/2024 12:52 PM EDT Images from the original note were not included. [id number] Open Bowel Resection: What to Expect at [...] This may include heavy grocery bags and milkcontainers, a heavy briefcase or backpack, cat litter or dog food bags, a vacuum pan cleaner, or a child. ?? Ask your [...] your doctor if you can take an frux-zbo-zkjgmgn medicine. o Do not take two or [...] this instruction, always ask your healthcare professional. [employer] disclaims any warranty or liability for your use of this information. ?? [id number] [employer]. * Can OnFHIR - Leola Montano RN - 06/01/2024 12:52 PM EDT Images from the original note were not included. 20171 Colorectal Surgery: Recovering in the Hospital and [...] site. Last Reviewed Date: 2024 00:00:00 ?? 8952-5774 [employer]. All rights reserved. This information is not intended as a substitute for professional medical care. Always follow your healthcare professional's instructions. * Can Alex - Leola Montano RN - 06/01/2024 12:52 PM EDT Images from the original note were not included. 35542 Understanding Intestinal Obstruction The small and large [...] symptoms Last Reviewed Date: 2021 00:00:00 ?? 6330-2557 [employer]. All rights reserved. This information is not [...] Injury Flowsheets Taken 06/01/2024 1146 by Alessandra Keene RN Skin Protection: incontinence pads utilized transparent [...] Blue surgery giving increasing WBC Cardiothoracic Surgery [phone] * Progress Notes - Rebel Ayala MD [...] Value Units Date/Time Blood Culture (Aerobic/Anaerobet Set) [[id number]] Collected: 05/23/24 1020 Order Status: Completed Specimen: Blood, Venous Updated: 05/24/24 1101 Culture No growth at day 1 Fungal Blood Culture [[id number]] Collected: 05/17/241812 Order Status: Completed Specimen: Blood, Venous Updated: 05/24/24 0638 Culture No Fungal Growth at 1 Week AFB Blood Culture [[id number]] Collected: 05/17/241812 Order Status: Completed Specimen: Blood, Venous Updated: 05/24/2438 AFB Culture No Mycobacterial Growth at 1 Week Vitals: Visit Vitals BP 133/85 Pulse 94 Temp 36.6 ??C (97.8 ??F) (Oral) Resp 19 Dudley Coma Scale Score: 15 Shaan Scale Score: 18 Oxygen Therapy: None (Room air) Skin Integrity: Bruising (Thornton (STEP DOWN SPECIALIST, glued), right colostomy, s/p chest tube sites, mid-abdominal wound vac (black foam), L SVG site (ANOOP and glued)) Edema: Generalized Wt Readings from [...] Weight: 61.1 kg (134 lb 12.8 oz) [place] body weight: 47.8 kg (105 lb 4.8 oz) Adjusted ideal body weight: 52.8 kg (116 lb 5.7 oz) (126.25%) of IBW Body mass index is 25.13 kg/m??. Adjusted wt: 50.9 kg (if over 125% of IBW) CENTRAL IV Access: PICC (05/18/24) Estimated Nutritional Needs: HBE: 1153 Stress Factor: 1.2-1.4 Total Calories/day: 2042-9570 Protein (amino acids): 1.3-1.6 grams/kg Protein (Amino [...] and depression COPD (chronic obstructive pulmonary disease) ([facility]) CAD, multiple vessel NSTEMI (non-ST elevated myocardial infarction) ([facility]) GERD (gastroesophageal reflux disease) Leukocytosis Hyperlipidemia THOM (obstructive sleep apnea) S/P CABG x 4 Hypertension Cardiac volume overload Hypoglycemia Nausea with vomiting Acute blood loss anemia (ABLA) Gastric perforation (CMS/HCC) On total parenteral nutrition (TPN) Ileus ([facility]) Electrolyte abnormality Colon perforation (CMS/HCC) Post-op [...] to 4LNC 05/08 resolved Tobacco use 05/01/2024 Slot Host for smoking 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 Complicates all [...] I have assessed the patient with the pharmacy picking tech and agree with the plan as ordered and documented. Micheal Sherman PharmD Trauma/Emergency General Surgery * Consults - Gretchen Brothers RD - 05/31/2024 3:38 PM EDT Adult Nutrition Evaluation Note Rere Hunter 53 y.o. female CSN: [id number] Room/Bed 117/117A Nutrition evaluation type: follow-up Reason [...] (Calculated): 23.09 Weight Evaluation: Overweight (BMI 25-29.9) [place] Body Weight (kg): 47.7 Percent [place] Body Weight: 116 Adjusted Body Weight (kg): 50.9 Wt Readings from Last 10 Encounters: 05/31/24 55.4 kg (122 lb 2.2 oz) 06/28/23 59 kg (130 lb) 04/26/23 62.6 kg (138 lb) 01/18/23 61.7 kg (136 lb) Estimated Needs: Kcal/ K-35 Kcal Provided: 0515-7411 Kcal Needs Based On: Adjusted weight Gm Protein/ Kg : 1.5 Protein Provided: 76 Protein Needs Based On: Adjusted weight Metabolic Cart Study Results: Current Nutrition Intake: Diet Order: Adult Diet Diet Texture: Regular Adult Carbohydrate Restriction: Consistent CHO 2 (2915-3590 Channing, 80 g/meal) Fat Restriction: Cardiac Other [...] Provided: Will monitor Pertinent home medications: reviewed Sabianism needs: Nutrition Focused Physical Exam: Physical exam [...] Date Anxiety COPD (chronic obstructive pulmonary disease) ([facility]) 05/01/2024 Continue Duo nebs q6 SPO2 goal >88% Depression GERD (gastroesophageal reflux disease) 05/01/2024 Continue Protonix 40 mg daily Hyperkalemia 05/06/2024 Now resolved, pt with hypokalemia requiring replacement On mechanically assisted ventilation ([facility]) 05/06/2024 Arrived to ICU intubated 05/07 extubated to 4LNC 05/08 resolved Tobacco use 05/01/2024 Slot Host for smoking 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 Complicates all [...] night. Participants in Care Family/Caregiver Present: No Dynamite Cartridge Crimper: Not Applicable Presentation Oxygen Therapy: None (Room [...] Mobility Bed Mobility Exam: Scooting/Bridging Level of [place]: Maximum assist (25% patient's effort) (Seated scooting hips towards EOB withuse of draw sheet.) Physical/Nonphysical Assist: Verbal Cues, Nonverbal cues (demo/gestures) Bed Mobility Exam: Supine to Sit Level of [place]: Moderate assist (50% patient's effort) (For trunk [...] Transfer Exam: Sit to stand Level of [place]: Contact guard Physical/Nonphysical Assist: Verbal Cues, Nonverbal cues (demo/gestures), Set-up required, 1 person+ 1 person to manage equipment Assistive Device: Rollator Transfer Exam: Stand to Sit Level of [place]: Contact guard Physical/Nonphysical Assist: Verbal Cues, Nonverbal cues (demo/gestures), 1 person + 1 person to manage equipment, Set-up required Toilet Transfer Level of [place]: Minimum assist (75% patient's effort) Physical/Nonphysical Assist: [...] Care Family/Caregiver Present: No Family/Caregiver: Adult Son Dynamite Cartridge Crimper: Not Applicable Presentation Oxygen Therapy: None (Room [...] Mobility Bed Mobility Exam: Scooting/Bridging Level of [place]: Maximum assist (25% patient's effort) (Seated scooting hips towards EOB withuse of draw sheet.) Physical/Nonphysical Assist: Verbal Cues, Nonverbal cues (demo/gestures) Assistive Device: Other (draw sheet) Bed Mobility Exam: Supine to Sit Level of [place]: Moderate assist (50% patient's effort) (For trunk upright.) Physical/Nonphysical Assist: Verbal Cues, Nonverbal cues (demo/gestures), Additional assist utilized for safety Assistive Device: Other (draw sheet) Transfers Transfer Exam: Sit to stand Level of [place]: Contact guard Physical/Nonphysical Assist: Verbal Cues, Nonverbal cues (demo/gestures), Set-up required, 1 person+ 1 person to manage equipment Assistive Device: Rollator Transfer Exam: Stand to Sit Level of [place]: Contact guard Physical/Nonphysical Assist: Verbal Cues, Nonverbal cues (demo/gestures), 1 person + 1 person to manage equipment, Set-up required Assistive Device: Hand held assist Toilet Transfer Level of [place]: Minimum assist (75% patient's effort) Physical/Nonphysical Assist: [...] RD note 05/29 Kcal/ K-35 Kcal Provided: 0151-4393 Kcal Needs Based On: Adjusted weight Gm Protein/ Kg : 1.5 Protein Provided: 76 Protein Needs Based On: Adjusted weight 05/31: Calorie count results: 3-day ave = ~206kcal; 6g protein. Patient meeting ~12-13%kcal; 8% protein needs. RD to follow Garrtet Ruiz DTR * Progress Notes - Db [...] from last 7 days Lab Units 05/31/24 02505/30/24 0505/29/24 0535 05/28/24 0047 05/27/24 0454 05/26/24 0327 [...] 7 days Lab Units 05/31/24 0250 05/30/24 0505/29/24 0535 05/28/24 0047 05/27/24 0454 05/26/24 0327 [...] Value Units Date/Time Blood Culture (Aerobic/Anaerobet Set) [[id number]] Collected: 05/23/24 1020 Order Status: Completed Specimen: Blood, Venous Updated: 05/24/24 1101 Culture No growth at day 1 Fungal Blood Culture [[id number]] Collected: 05/17/241812 Order Status: Completed Specimen: Blood, Venous Updated: 05/24/24 0638 Culture No Fungal Growth at 1 Week AFB Blood Culture [[id number]] Collected: 05/17/241812 Order Status: Completed Specimen: Blood, Venous Updated: 05/24/2438 AFB Culture No Mycobacterial Growth at 1 Week Vitals: Visit Vitals BP (!) 140/83 (BP Location: Right arm, Patient Position: Lying) Pulse 94 Temp 37 ??C (98.6 ??F) (Oral) Resp 21 Dudley Coma Scale Score: 15 Shaan Scale Score: [...] Weight: 61.1 kg (134 lb 12.8 oz) [place] body weight: 47.8 kg (105 lb 4.8 oz) Adjusted ideal body weight: 52.8 kg (116 lb 5.7 oz) (126.25%) of IBW Body mass index is 25.13 kg/m??. Adjusted wt: 50.9 kg (if over 125% of IBW) CENTRAL IV Access: PICC (05/18/24) Estimated Nutritional Needs: HBE: 1153 Stress Factor: 1.2-1.4 Total Calories/day: 1036-5036 Protein (amino acids): 1.3-1.6 grams/kg Protein (Amino [...] and depression COPD (chronic obstructive pulmonary disease) ([facility]) CAD, multiple vessel NSTEMI (non-ST elevated myocardial infarction) ([facility]) GERD (gastroesophageal reflux disease) Leukocytosis Hyperlipidemia THOM (obstructive sleep apnea) S/P CABG x 4 Hypertension Cardiac volume overload Hypoglycemia Nausea with vomiting Acute blood loss anemia (ABLA) Gastric perforation ([facility]) On total parenteral nutrition (TPN) Ileus ([facility]) Electrolyte abnormality Colon perforation ([facility]) Post-op pain Delirium [2] Past Medical History: Diagnosis Date Anxiety COPD (chronic obstructive pulmonary disease) ([facility]) 05/01/2024 Continue Duo nebs q6 SPO2 goal >88% Depression GERD (gastroesophageal reflux disease) 05/01/2024 Continue Protonix 40 mg daily Hyperkalemia 05/06/2024 Now resolved, pt with hypokalemia requiring replacement On mechanically assisted ventilation ([facility]) 05/06/2024 Arrived to ICU intubated 05/07 extubated to 4LNC 05/08 resolved Tobacco use 05/01/2024 Slot Host for smoking 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 Complicates all [...] Note Rere Hunter 53 y.o. female CSN: [id number] Admission: 05/01/2024 11:01 PM Primary Problem: CAD, [...] to expense. SW previously referred pt to [facility] and updated liaison Prema this AM re: pt's progress. Prema continuing to follow. No further SW concerns identified at this time. SW will monitor pt's progress and will follow up with DC planning and needs as appropriate. NAYA Albarran * Progress Notes - Shola Sheridan APRN - 05/31/2024 8:05 AM EDT CVT Progress [...] 0659 05/29/24 0700 - 05/29/24 1859 05/29/24 1900 - 05/30/24 0659 05/30/24 07 - 05/30/24 1507 Closed/Suction Drain 1 Inferior;Left [...] mg q6 COPD (chronic obstructive pulmonary disease) ([facility]) Yes Overview Addendum 05/23/2024 8:43 AM by Marybel Suarez APRN Duo nebs q6 Wean O2 for SPO2 goal >88% NSTEMI (non-ST elevated myocardial infarction) ([facility]) Yes Overview Addendum 05/22/2024 11:00 AM by Jose Aburto MD Diagnosed at OSH with elevated troponins of 0.05 to 0.23 to 0.16 Started on heparin drip BUTCHER'S ASSISTANT, 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 Repeat troponins pending 05/07 [...] Signed 05/23/2024 8:47 AM by Marybel Suarez, BATTERY PARTS ASSEMBLER Restart statin when no longer NPO THOM (obstructive sleep apnea) Yes Overview Addendum 05/23/2024 8:45 AM by Marybel Suarez, BATTERY PARTS ASSEMBLER Refusing home CPAP remains on NC S/P CABG x 4 Not Applicable Overview Addendum 05/23/2024 8:45 AM by Marybel Suarez, ARASH 05/06 4vCABG w/ Dr. Austin Aspirin, statin, beta stacey as clinically appropriate Hypertension Yes Overview Addendum 05/23/2024 8:47 AM by Marybel Suarez, BATTERY PARTS ASSEMBLER Metop IV while NPO Restart PO metop when appropriate Cardiac volume overload No Overview Addendum 05/18/2024 10:24 AM by Sidney Jackson MD Diuresis as clinically indicated Hypoglycemia No Overview Addendum 05/23/2024 8:46 AM by Marybel Suarez, BATTERY PARTS ASSEMBLER Resolved once TPN started Nausea with vomiting No Overview Addendum 05/28/2024 8:26 AM by Sidney Jackson MD TPN running Advance PO diet as able Acute blood loss anemia (ABLA) No Overview Addendum 05/23/2024 8:43 AM by Marybel Suarez, BATTERY PARTS ASSEMBLER Lab Results Component Value Date HGB 9.0 [...] Signed 05/23/2024 8:50 AM by Marybel Suarez, BATTERY PARTS ASSEMBLER - monitor and replace prn Post-op pain [...] Value Units Date/Time Blood Culture (Aerobic/Anaerobet Set) [[id number]] Collected: 05/23/24 1020 Order Status: Completed Specimen: Blood, Venous Updated: 05/24/24 1101 Culture No growth at day 1 Fungal Blood Culture [[id number]] Collected: 05/17/241812 Order Status: Completed Specimen: Blood, Venous Updated: 05/24/24 0638 Culture No Fungal Growth at 1 Week AFB Blood Culture [[id number]] Collected: 05/17/241812 Order Status: Completed Specimen: Blood, Venous Updated: 05/24/24637 AFB Culture No Mycobacterial Growth at 1 Week Vitals: Visit Vitals BP 129/84 (BP Location: Right arm, Patient Position: Lying) Pulse 90 Temp 36.6 ??C (97.9 ??F) (Oral) Resp 20 Dudley Coma Scale Score: 15 Shaan Scale Score: [...] Weight: 61.1 kg (134 lb 12.8 oz) [place] body weight: 47.8 kg (105 lb 4.8 oz) Adjusted ideal body weight: 52.8 kg (116 lb 5.7 oz) (126.25%) of IBW Body mass index is 25.13 kg/m??. Adjusted wt: 50.9 kg (if over 125% of IBW) CENTRAL IV Access: PICC (05/18/24) Estimated Nutritional Needs: HBE: 1153 Stress Factor: 1.2-1.4 Total Calories/day: 4863-8042 Protein (amino acids): 1.3-1.6 grams/kg Protein (Amino [...] Date Anxiety COPD (chronic obstructive pulmonary disease) ([facility]) 05/01/2024 Continue Duo nebs q6 SPO2 goal >88% Depression GERD (gastroesophageal reflux disease) 05/01/2024 Continue Protonix 40 mg daily Hyperkalemia 05/06/2024 Now resolved, pt with hypokalemia requiring replacement On mechanically assisted ventilation ([facility]) 05/06/2024 Arrived to ICU intubated 05/07 extubated to 4LNC 05/08 resolved Tobacco use 05/01/2024 Slot Host for smoking 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 Complicates all [...] CABG x 4 on 05/06/[address] Austni. -transfer to telem when bed available -diet [...] mg q6 COPD (chronic obstructive pulmonary disease) ([facility]) Yes Overview Addendum 05/23/2024 8:43 AM by Marybel Suarez APRN Duo nebs q6 Wean O2 for SPO2 goal >88% NSTEMI (non-ST elevated myocardial infarction) ([facility]) Yes Overview Addendum 05/22/2024 11:00 AM by Jose Aburto MD Diagnosed at OSH with elevated troponins of 0.05 to 0.23 to 0.16 Started on heparin drip BUTCHER'S ASSISTANT, 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 Repeat troponins pending 05/07 [...] Addendum 05/23/2024 8:50 AM by Marybel Suarez, BATTERY PARTS ASSEMBLER Remains febrile with elevated EBC Cultures ordered and pending Hyperlipidemia Yes Overview Signed 05/23/2024 8:47 AM by Marybel Suarez, BAT[employer]Y [employer]S ASSEMBLER Restart statin when no longer NPO THOM (obstructive sleep apnea) Yes Overview Addendum 05/23/2024 8:45 AM by Marybel Suarez, [employer]SEMBLER Refusing home CPAP remains on NC S/P CABG x 4 Not Applicable Overview Addendum 05/23/2024 8:45 AM by Marybel Suarez, [employer] ASSEMBLER 05/06 4vCABG w/ Dr. Austin Aspirin, statin, beta stacey as clinically appropriate Hypertension Yes Overview Addendum 05/23/2024 8:47 AM by Marybel Suarez, [employer]SEMBLER Metop IV while NPO Restart PO metop when appropriate Cardiac volume overload No Overview Addendum 05/18/2024 10:24 AM by Sidney Jackson MD Diuresis as clinically indicated Hypoglycemia No Overview Addendum 05/23/2024 8:46 AM by Marybel Suarez, [employer]SEMBLER Resolved once TPN started Nausea with vomiting No Overview Addendum 05/28/2024 8:26 AM by Sidney Jackson MD TPN running Advance PO diet as able Acute blood loss anemia (ABLA) No Overview Addendum 05/23/2024 8:43 AM by Marybel Suarez, [employer] ASSEMBLER Lab Results Component Value Date HGB 9.0 [...] Signed 05/23/2024 8:50 AM by Marybel Suarez, BAT[employer] ASSEMBLER - monitor and replace prn Post-op pain [...] Note Rere Hunter 53 y.o. female CSN: [id number] Room/Bed 216/216A Nutrition evaluation type: follow-up Reason for evaluation: Hospital course: 53 y.o. female presents for CABG evaluation. OR on 05/06. 4/2: NPO x 5 days d/t ileus. Trial [...] (Calculated): 25.92 Weight Evaluation: Overweight (BMI 25-29.9) [place] Body Weight (kg): 47.7 Percent [place] Body Weight: 126 Adjusted Body Weight (kg): 50.9 Estimated Needs: Kcal/ K-35 Kcal Provided: 8536-6731 Kcal Needs Based On: Adjusted weight Gm Protein/ Kg : 1.5 Protein Provided: 76 Protein Needs Based On: Adjusted weight Metabolic Cart Study Results: Current Nutrition Intake: Diet Order: Adult Diet Diet Texture: Regular Adult Carbohydrate Restriction: Consistent CHO 2 (2895-0707 Channign, 80 g/meal) Fat Restriction: Cardiac Percent Meals Eaten (%): Calorie count in progress HALF-RATE TPN: DEXTROSE: 15% (144 g/day CHO) AMINO ACIDS: 5% (48 g/day) Cl:A 1:3, K @ 30 mEq/L @ 40 ml/hr, with 30mg/day thiamine, MVI, and Trace elements Every other day 250ml 20% SMOF lipids Diet Experience and Nutrition History: Diet Education Provided: Will monitor Pertinent home medications: reviewed Sabianism needs: Nutrition Focused Physical Exam: Physical exam [...] - Added Boost VHC once daily + Roqeu BID. - Will follow up with calorie [...] Date Anxiety COPD (chronic obstructive pulmonary disease) ([facility]) 05/01/2024 Continue Duo nebs q6 SPO2 goal >88% Depression GERD (gastroesophageal reflux disease) 05/01/2024 Continue Protonix 40 mg daily Hyperkalemia 05/06/2024 Now resolved, pt with hypokalemia requiring replacement On mechanically assisted ventilation ([facility]) 05/06/2024 Arrived to ICU intubated 05/07 extubated to [facility] 05/08 resolved Tobacco use 05/01/2024 Slot Host for smoking 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 Complicates all [...] Mobility Bed Mobility Exam: Scooting/Bridging Level of [place]: Maximum assist (25% patient's effort) Physical/Nonphysical Assist: Verbal Cues, Set-up required, Additional assist utilized for safety Assistive Device: Other (draw sheet to scoot to EOB) Bed Mobility Exam: Supine to Sit Level of [place]: Maximum assist (25% patient's effort) Physical/Nonphysical Assist: Verbal Cues, Set-up required, Additional assist utilized for safety Transfers Transfer Exam: Sit to stand Level of [place]: Minimum assist (75% patient's effort) Physical/Nonphysical Assist: Verbal Cues, Set-up required, 1 person + 1 person to manage equipment Assistive Device: Hand held assist Transfer Exam: Stand to Sit Level of [place]: Minimum assist (75% patient's effort) Physical/Nonphysical Assist: [...] as patient expressed desire to go to [facility]. Assessment Patient with no significant change [...] at 2:06 PM. * Progress Notes - Keisha Sabillon Caden - 05/29/2024 1:31 PM EDT Occupational Therapy [...] Mobility Bed Mobility Exam: Scooting/Bridging Level of [place]: Maximum assist (25% patient's effort) Physical/Nonphysical Assist: Verbal Cues, Set-up required, Additional assist utilized for safety Assistive Device: Other (draw sheet) Bed Mobility Exam: Supine to Sit Level of [place]: Maximum assist (25% patient's effort) Physical/Nonphysical Assist: Verbal Cues, Set-up required, Additional assist utilized for safety Assistive Device: Other (draw sheet) Transfers Transfer Exam: Sit to stand Level of [place]: Minimum assist (75% patient's effort) Physical/Nonphysical Assist: Verbal Cues, Set-up required, 1 person + 1 person to manage equipment Assistive Device: Hand held assist Transfer Exam: Stand to Sit Level of [place]: Minimum assist (75% patient's effort) Physical/Nonphysical Assist: [...] Value Units Date/Time Blood Culture (Aerobic/Anaerobet Set) [[id number]] Collected: 05/23/24 1020 Order Status: Completed Specimen: Blood, Venous Updated: 05/24/24 1101 Culture No growth at day 1 Fungal Blood Culture [[id number]] Collected: 05/17/24 1813 Order Status: Completed Specimen: Blood, Venous Updated: 05/24/24 0638 Culture No Fungal Growth at 1 Week AFB Blood Culture [[id number]] Collected: 05/17/24 181 Order Status: Completed Specimen: Blood, Venous Updated: 05/24/24 0638 AFB Culture No Mycobacterial Growth at 1 Week Vitals: Visit Vitals BP 128/77 Pulse 88 Temp 37.4 ??C (99.3 ??F) Resp 20 Jaida Coma Scale Score: [...] Weight: 61.1 kg (134 lb 12.8 oz) [place] body weight: 47.8 kg (105 lb 4.8 oz) Adjusted ideal body weight: 52.8 kg (116 lb 5.7 oz) (126.25%) of IBW Body mass index is 25.13 kg/m??. Adjusted wt: 50.9 kg (if over 125% of IBW) CENTRAL IV Access: PICC (05/18/24) Estimated Nutritional Needs: HBE: 1153 Stress Factor: 1.2-1.4 Total Calories/day: 2604-2142 Protein (amino acids): 1.3-1.6 grams/kg Protein (Amino [...] and depression COPD (chronic obstructive pulmonary disease) ([facility]/HCC) CAD, multiple vessel NSTEMI (non-ST elevated myocardial infarction) ([facility]) GERD (gastroesophageal reflux disease) Leukocytosis Hyperlipidemia THOM (obstructive sleep apnea) S/P CABG x 4 Hypertension Cardiac volume overload Hypoglycemia Nausea with vomiting Acute blood loss anemia (ABLA) Gastric perforation (CMS/HCC) On total parenteral nutrition (TPN) Ileus ([facility]/HCC) Electrolyte abnormality Colon perforation (CMS/HCC) Post-op [...] to 4LNC 05/08 resolved Tobacco use 05/01/2024 Slot Host for smoking 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 Complicates all [...] Abdomen Lower;Upper;Mid 05/23/24 1757 Abdomen 4 GCS: Dudley Coma Scale Score: 15 Review of Systems [...] mg q6 COPD (chronic obstructive pulmonary disease) ([facility]) Yes Overview Addendum 05/23/2024 8:43 AM by Marybel Suarez, BAT[employer]Y [employer]S ASSEMBLER Duo nebs q6 Wean O2 for SPO2 goal >88% NSTEMI (non-ST elevated myocardial infarction) (CMS/HCC) Yes Overview Addendum 05/22/2024 11:00 AM by Jose Aburto MD Diagnosed at OSH with elevated troponins of 0.05 to 0.23 to 0.16 Started on heparin drip BUTCHER'S ASSISTANT, 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 Repeat troponins pending 05/07 [...] Signed 05/23/2024 8:47 AM by Marybel Suarez, [employer]SEMBLER Restart statin when no longer NPO THOM (obstructive sleep apnea) Yes Overview Addendum 05/23/2024 8:45 AM by Marybel Suarez, BAT[employer] ASSEMBLER Refusing home CPAP remains on NC S/P CABG x 4 Not Applicable Overview Addendum 05/23/2024 8:45 AM by Marybel Suarez, ARASH 05/06 4vCABG w/ Dr. Austin Aspirin, statin, beta stacey as clinically appropriate Hypertension Yes Overview Addendum 05/23/2024 8:47 AM by Marybel Suarez, BAT[employer] ASSEMBLER Metop IV while NPO Restart PO metop when appropriate Cardiac volume overload No Overview Addendum 05/18/2024 10:24 AM by Sidney Jackson MD Diuresis as clinically indicated Hypoglycemia No Overview Addendum 05/23/2024 8:46 AM by Marybel Suarez, BAT[employer]S ASSEMBLER Resolved once TPN started Nausea with vomiting No Overview Addendum 05/28/2024 8:26 AM by Sidney Jackson MD TPN running Advance PO diet as able Acute blood loss anemia (ABLA) No Overview Addendum 05/23/2024 8:43 AM by Marybel Suarez, BAT[employer]Y PARTS ASSEMBLER Lab Results Component Value Date HGB 9.0 [...] Surgical ICU Daily Progress Note 05/28/24 Rere Nancy Hunter HPI 53F with history [...] by Drain (mL) 05/26/24 07 - 05/26/24 18505/26/241899 - 05/27/24 0659 05/27/24 07 - 05/27/24 1859 05/27/24 190 - 05/28/24 0659 05/28/24 07 - 05/28/24 [...] Results from last 7 days Lab Units 05/28/247 05/27/24 0454 05/26/24 0327 CREATININE mg/dL 0.66 [...] Addendum 05/23/2024 8:43 AM by Marybel Suarez [employer] ASSEMBLER Continue home bupropion XL 300 mg daily [...] 0.23 to 0.16 Started on heparin drip BUTCHER'S ASSISTANT, 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 Repeat troponins pending 05/07 [...] Signed 05/23/2024 8:47 AM by Marybel Suarez, BAT[employer] ASSEMBLER Restart statin when no longer NPO THOM (obstructive sleep apnea) Yes Overview Addendum 05/23/2024 8:45 AM by Marybel Suarez, BAT[employer] ASSEMBLER Refusing home CPAP remains on NC S/P CABG x 4 Not Applicable Overview Addendum 05/23/2024 8:45 AM by Marybel Suarez, ARASH 05/06 4vCABG w/ Dr. Austin Aspirin, statin, beta stacey as clinically appropriate Hypertension Yes Overview Addendum 05/23/2024 8:47 AM by Marybel Suarez, BAT[employer]Y [employer] ASSEMBLER Metop IV while NPO Restart PO metop when appropriate Cardiac volume overload No Overview Addendum 05/18/2024 10:24 AM by Sidney Jackson MD Diuresis as clinically indicated Hypoglycemia No Overview Addendum 05/23/2024 8:46 AM by Marybel Suarez, BAT[employer] ASSEMBLER Resolved once TPN started Nausea with vomiting No Overview Addendum 05/28/2024 8:26 AM by Sidney Jackson MD TPN running Advance PO diet as able Acute blood loss anemia (ABLA) No Overview Addendum 05/23/2024 8:43 AM by Marybel Suarez, BAT[employer]Y [employer]S ASSEMBLER Lab Results Component Value Date HGB 9.0 [...] Signed 05/23/2024 8:50 AM by Marybel Suarez, BATTERY [employer]S ASSEMBLER - monitor and replace prn Post-op pain [...] Note Rere Hunter 53 y.o. female CSN: [id number] Admission: 05/01/2024 11:01 PM Primary Problem: CAD, multiple vessel Anticipated Discharge Date: TBD Has Discharge Plans Changed? No Housing Circumstances: Not Applicable Housing Circumstances Action Taken: Other N/A Additional Comments SW reviewed chart for case updates. Pt is s/p 4v CABG on 05/06/24 and remains in an ICU-level of care. Pt is on TPN and has a new colostomy. Per , pt is not medically ready for DC [...] 20* 20* -- 25 -- 24 25 CALCIUM mg/dL 8.2* 8.4* 7.8* 7.7* [...] Results from last 7 days Lab Units 05/28/244605/27/24 0454 05/26/24 0327 05/25/24 2032 05/25/24 1355 [...] Results from last 7 days Lab Units 05/28/244605/27/24 0454 05/26/24 0327 05/25/24 0245 05/23/24 1939 [...] Value Units Date/Time Blood Culture (Aerobic/Anaerobet Set) [[id number]] Collected: 05/23/24 1020 Order Status: Completed Specimen: Blood, Venous Updated: 05/24/24 1101 Culture No growth at day 1 Fungal Blood Culture [[id number]] Collected: 05/17/241812 Order Status: Completed Specimen: Blood, Venous Updated: 05/24/24 0638 Culture No Fungal Growth at 1 Week AFB Blood Culture [[id number]] Collected: 05/17/241812 Order Status: Completed Specimen: Blood, [...] Weight: 61.1 kg (134 lb 12.8 oz) [place] body weight: 47.8 kg (105 lb 4.8 oz) Adjusted ideal body weight: 52.8 kg (116 lb 5.7 oz) (126.25%) of IBW Body mass index is 25.13 kg/m??. Adjusted wt: 50.9 kg (if over 125% of IBW) CENTRAL IV Access: PICC (05/18/24) Estimated Nutritional Needs: HBE: 1153 Stress Factor: 1.2-1.4 Total Calories/day: 5315-7442 Protein (amino acids): 1.3-1.6 grams/kg Protein (Amino [...] multiple vessel NSTEMI (non-ST elevated myocardial infarction) ([facility]) GERD (gastroesophageal reflux disease) Leukocytosis Hyperlipidemia THOM (obstructive sleep apnea) S/P CABG x 4 Hypertension Cardiac volume overload Hypoglycemia Nausea with vomiting Acute blood loss anemia (ABLA) Gastric perforation (CMS/HCC) On total parenteral nutrition (TPN) Ileus (CMS/HCC) Electrolyte abnormality Colon perforation ([facility]) Post-op pain [2] Past Medical History: Diagnosis Date Anxiety COPD (chronic obstructive pulmonary disease) (CMS/HCC) 05/01/2024 Continue Duo nebs q6 SPO2 goal >88% Depression GERD (gastroesophageal reflux disease) 05/01/2024 Continue Protonix 40 mg daily Hyperkalemia 05/06/2024 Now resolved, pt with hypokalemia requiring replacement On mechanically assisted ventilation (CMS/HCC) 05/06/2024 Arrived to ICU intubated 05/07 extubated to 4LNC 05/08 resolved Tobacco use 05/01/2024 Slot Host for smoking 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 Complicates all [...] Lab Units 05/27/24 0454 05/26/24 0327 05/25/24 2032 05/25/24 [...] from last 7 days Lab Units 05/27/2445305/26/2432605/25/24 02405/23/24193805/23/24 1300 05/23/24 0540 05/23/24 0115 05/22/24 1132 [...] Value Units Date/Time Blood Culture (Aerobic/Anaerobet Set) [[id number]] Collected: 05/23/24 1020 Order Status: Completed Specimen: Blood, Venous Updated: 05/24/24 1101 Culture No growth at day 1 Fungal Blood Culture [[id number]] Collected: 05/17/241812 Order Status: Completed Specimen: Blood, Venous Updated: 05/24/24 0638 Culture No Fungal Growth at 1 Week AFB Blood Culture [[id number]] Collected: 05/17/241812 Order Status: Completed Specimen: Blood, Venous Updated: 05/24/24637 AFB Culture No Mycobacterial Growth at 1 Week Vitals: Visit Vitals BP (!) 141/59 Pulse 88 Temp 37.4 ??C (99.3 ??F) (Bladder) Resp 14 Dudley Coma Scale Score: 14 Shaan Scale Score: [...] Weight: 61.1 kg (134 lb 12.8 oz) [place] body weight: 47.8 kg (105 lb 4.8 oz) Adjusted ideal body weight: 52.8 kg (116 lb 5.7 oz) (126.25%) of IBW Body mass index is 25.13 kg/m??. Adjusted wt: 50.9 kg (if over 125% of IBW) CENTRAL IV Access: PICC (05/18/24) Estimated Nutritional Needs: HBE: 1153 Stress Factor: 1.2-1.4 Total Calories/day: 1301-1449 Protein (amino acids): 1.3-1.6 grams/kg Protein (Amino [...] Care Surgery Pharmacist TPN Pharmacist available on [employer] Chat [1] Patient Active Problem List Diagnosis Anxiety and depression COPD (chronic obstructive pulmonary disease) ([facility]) CAD, multiple vessel NSTEMI (non-ST elevated myocardial infarction) ([facility]) GERD (gastroesophageal reflux disease) Leukocytosis Hyperlipidemia THOM (obstructive sleep apnea) S/P CABG x 4 Hypertension Cardiac volume overload Hypoglycemia Nausea with vomiting Acute blood loss anemia (ABLA) Gastric perforation ([facility]) On total parenteral nutrition (TPN) Ileus ([facility]) Electrolyte abnormality Colon perforation ([facility]) Post-op pain [2] Past Medical History: Diagnosis Date Anxiety COPD (chronic obstructive pulmonary disease) ([facility]) 05/01/2024 Continue Duo nebs q6 SPO2 goal >88% Depression GERD (gastroesophageal reflux disease) 05/01/2024 Continue Protonix 40 mg daily Hyperkalemia 05/06/2024 Now resolved, pt with hypokalemia requiring replacement On mechanically assisted ventilation ([facility]) 05/06/2024 Arrived to ICU intubated 05/07 extubated to 4LNC 05/08 resolved Tobacco use 05/01/2024 Slot Host for smoking 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 Complicates all [...] Nasal cannula Output by Drain (mL) 05/25/24 07 - 05/25/24 1859 05/25/24 190 - 05/26/24 0659 05/26/24 07 - 05/26/24 1859 05/26/24 190 [...] Lab Units 05/27/24 0454 05/26/24 0327 05/25/24 2032 HEMOGLOBIN g/dL 9.5* 7.1* 7.2* [...] mg q6 COPD (chronic obstructive pulmonary disease) ([facility]/HCC) Yes Overview Addendum 05/23/2024 8:43 AM by Marybel Suarez APRN Duo nebs q6 Wean O2 for SPO2 goal >88% NSTEMI (non-ST elevated myocardial infarction) (CMS/HCC) Yes Overview Addendum 05/22/2024 11:00 AM by Jose Aburto MD Diagnosed at OSH with elevated troponins of 0.05 to 0.23 to 0.16 Started on heparin drip BUTCHER'S ASSISTANT, 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 Repeat troponins pending 05/07 [...] Addendum 05/23/2024 8:50 AM by Marybel Suarez, BAT[employer]Y [employer] ASSEMBLER Remains febrile with elevated EBC Cultures ordered and pending Hyperlipidemia Yes Overview Signed 05/23/2024 8:47 AM by Marybel Suarez, BATTERY PARTS ASSEMBLER Restart statin when no longer NPO THOM (obstructive sleep apnea) Yes Overview Addendum 05/23/2024 8:45 AM by Marybel Suarez, BATTERY PARTS ASSEMBLER Refusing home CPAP remains on NC S/P CABG x 4 Not Applicable Overview Addendum 05/23/2024 8:45 AM by Marybel Suarez, BATTERY PARTS ASSEMBLER 05/06 4vCABG w/ Dr. Austin Aspirin, statin, beta stacey as clinically appropriate Hypertension Yes Overview Addendum 05/23/2024 8:47 AM by Marybel Suarez, BATTERY PARTS ASSEMBLER Metop IV while NPO Restart PO metop when appropriate Cardiac volume overload No Overview Addendum 05/18/2024 10:24 AM by Sidney Jackson MD Diuresis as clinically indicated Hypoglycemia No Overview Addendum 05/23/2024 8:46 AM by Marybel Suarez, BATTERY PARTS ASSEMBLER Resolved once TPN started Nausea with vomiting No Overview Addendum 05/24/2024 11:04 AM by Jose Aburto MD NG in place Okay for sips and chips per surgery team Acute blood loss anemia (ABLA) No Overview Addendum 05/23/2024 8:43 AM by Marybel Suarez, BATTERY PARTS ASSEMBLER Lab Results Component Value Date HGB 9.0 (L) 05/23/2024 CTM with daily labs Transfuse as indicated Gastric perforation (CMS/HCC) No Overview Addendum 05/24/2024 11:03 AM by Jose Aburto MD Unclear gastric vs colonic perforation. S/p ex lap with blue surgery on 05/23 On total parenteral nutrition (TPN) No Overview Signed 05/21/2024 9:26 AM by Reyna Mcdonald, BATTERY PARTS ASSEMBLER Started on 05/20 Ileus (CMS/HCC) No Overview Signed 05/23/2024 8:49 AM by Marybel Suarez, BATTERY PARTS ASSEMBLER - NGT for decompression - blue surgery consulted, appreciate recs - serial CT abdomen and pelvis - remains NPO, on TPN Electrolyte abnormality Yes Overview Signed 05/23/2024 8:50 AM by Marybel Suarez, BATTERY PARTS ASSEMBLER - monitor and replace prn Post-op pain [...] Abdomen Lower;Upper;Mid 05/23/24 1757 Abdomen 3 GCS: Jaida Coma Scale Score: 13 Review [...] Addendum 05/23/2024 8:44 AM by Marybel Suarez, BATTERY PARTS ASSEMBLER Patient presented to OSH on 05/01/24 c/o chest pain, LHC reveal mvCAD S/p CABG with Dr. Austin on 05/07 Anxiety and depression Yes Overview Addendum 05/23/2024 8:43 AM by Marybel Suarez, BATTERY PARTS ASSEMBLER Continue home bupropion XL 300 mg daily Continue home citalopram 40 mg daily Continue PRN hydroxyzine 25 mg q6 COPD (chronic obstructive pulmonary disease) ([facility]) Yes Overview Addendum 05/23/2024 8:43 AM by Marybel Suarez, BATTERY PARTS ASSEMBLER Duo nebs q6 Wean O2 for SPO2 goal >88% NSTEMI (non-ST elevated myocardial infarction) ([facility]) Yes Overview Addendum 05/22/2024 11:00 AM by Jose Aburto MD Diagnosed at OSH with elevated troponins of 0.05 to 0.23 to 0.16 Started on heparin drip BUTCHER'S ASSISTANT, 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 Repeat troponins pending 05/07 [...] Addendum 05/23/2024 8:50 AM by Marybel Suarez, BAT[employer]Y PARTS ASSEMBLER Remains febrile with elevated EBC Cultures ordered and pending Hyperlipidemia Yes Overview Signed 05/23/2024 8:47 AM by Marybel Suarez, BATTERY PARTS ASSEMBLER Restart statin when no longer NPO THOM (obstructive sleep apnea) Yes Overview Addendum 05/23/2024 8:45 AM by Maryebl Suarez, BATTERY PARTS ASSEMBLER Refusing home CPAP remains on NC S/P CABG x 4 Not Applicable Overview Addendum 05/23/2024 8:45 AM by Marybel Suarez, BATTERY PARTS ASSEMBLER 05/06 4vCABG w/ Dr. Austin Aspirin, statin, beta stacey as clinically appropriate Hypertension Yes Overview Addendum 05/23/2024 8:47 AM by Marybel Suarez, BATTERY PARTS ASSEMBLER Metop IV while NPO Restart PO metop when appropriate Cardiac volume overload No Overview Addendum 05/18/2024 10:24 AM by Sidney Jackson MD Diuresis as clinically indicated Hypoglycemia No Overview Addendum 05/23/2024 8:46 AM by Marybel Suarez, BATTERY PARTS ASSEMBLER Resolved once TPN started Nausea with vomiting No Overview Addendum 05/24/2024 11:04 AM by Jose Aburto MD NG in place Okay for sips and chips per surgery team Acute blood loss anemia (ABLA) No Overview Addendum 05/23/2024 8:43 AM by Marybel Suarez, BATTERY PARTS ASSEMBLER Lab Results Component Value Date HGB 9.0 (L) 05/23/2024 CTM with daily labs Transfuse as indicated Gastric perforation (CMS/HCC) No Overview Addendum 05/24/2024 11:03 AM by Jose Aburto MD Unclear gastric vs colonic perforation. S/p ex lap with blue surgery on 05/23 On total parenteral nutrition (TPN) No Overview Signed 05/21/2024 9:26 AM by Reyna Mcdonald, BATTERY PARTS ASSEMBLER Started on 05/20 Ileus (CMS/HCC) No Overview Signed 05/23/2024 8:49 AM by Marybel Suarez, BATTERY PARTS ASSEMBLER - NGT for decompression - blue surgery consulted, appreciate recs - serial CT abdomen and pelvis - remains NPO, on TPN Electrolyte abnormality Yes Overview Signed 05/23/2024 8:50 AM by Marybel Suarez, BATTERY PARTS ASSEMBLER - monitor and replace prn Post-op pain [...] Abdomen Lower;Upper;Mid 05/23/24 1757 Abdomen 2 GCS: Dudley Coma Scale Score: 14 Review of Systems [...] mg q6 COPD (chronic obstructive pulmonary disease) ([facility]) Yes Overview Addendum 05/23/2024 8:43 AM by Marybel Suarez APRN Duo nebs q6 Wean O2 for SPO2 goal >88% NSTEMI (non-ST elevated myocardial infarction) ([facility]) Yes Overview Addendum 05/22/2024 11:00 AM by Jose Aburto MD Diagnosed at OSH with elevated troponins of 0.05 to 0.23 to 0.16 Started on heparin drip BUTCHER'S ASSISTANT, 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 Repeat troponins pending 05/07 [...] Addendum 05/23/2024 8:50 AM by Marybel Suarez, BAT[employer]Y PARTS ASSEMBLER Remains febrile with elevated EBC Cultures ordered and pending Hyperlipidemia Yes Overview Signed 05/23/2024 8:47 AM by Marybel Suarez, BATTERY PARTS ASSEMBLER Restart statin when no longer NPO THOM (obstructive sleep apnea) Yes Overview Addendum 05/23/2024 8:45 AM by Marybel Suarez, BAT[employer]Y PARTS ASSEMBLER Refusing home CPAP remains on NC S/P CABG x 4 Not Applicable Overview Addendum 05/23/2024 8:45 AM by Marybel Suarez, BATTERY PARTS ASSEMBLER 05/06 4vCABG w/ Dr. Austin Aspirin, statin, beta stacey as clinically appropriate Hypertension Yes Overview Addendum 05/23/2024 8:47 AM by Marybel Suarez, BATTERY PARTS ASSEMBLER Metop IV while NPO Restart PO metop when appropriate Cardiac volume overload No Overview Addendum 05/18/2024 10:24 AM by Sidney Jackson MD Diuresis as clinically indicated Hypoglycemia No Overview Addendum 05/23/2024 8:46 AM by Marybel Suarez, BATTERY PARTS ASSEMBLER Resolved once TPN started Nausea with vomiting No Overview Addendum 05/24/2024 11:04 AM by Jose Aburto MD NG in place Okay for sips and chips per surgery team Acute blood loss anemia (ABLA) No Overview Addendum 05/23/2024 8:43 AM by Marybel Suarez, BAT[employer]Y [employer]S ASSEMBLER Lab Results Component Value Date HGB 9.0 [...] Signed 05/23/2024 8:49 AM by Marybel Suarez BAT[employer]S ASSEMBLER - NGT for decompression - blue surgery [...] + possible leak. 05/17: TPN consult placed 04/05: TPN initiated 05/23: CT overnight with PO [...] Value Units Date/Time Blood Culture (Aerobic/Anaerobet Set) [[id number]] Collected: 05/23/24 1020 Order Status: Completed Specimen: Blood, Venous Updated: 05/24/24 1101 Culture No growth at day 1 Fungal Blood Culture [[id number]] Collected: 05/17/241812 Order Status: Completed Specimen: Blood, Venous Updated: 05/24/24 0638 Culture No Fungal Growth at 1 Week AFB Blood Culture [[id number]] Collected: 05/17/241812 Order Status: Completed Specimen: Blood, Venous Updated: 05/24/24 0638 AFB Culture No Mycobacterial Growth at 1 Week Vitals: Visit Vitals BP (!) 106/90 (BP Location: Right arm, Patient Position: Lying) Pulse 95 Temp 37 ??C (98.6 ??F) Resp 14 Dudley Coma Scale Score: 14 Shaan Scale Score: 15 Oxygen Therapy: None (Room air) Skin Integrity: Bruising, Other (Comment) (incision chest) Edema: Generalized Wt Readings from Last 3 Encounters: 05/26/24 62.2 kg (137 lb 2 oz) 06/28/23 59 kg (130 lb) 04/26/23 62.6 kg (138 lb) Current Diet Order: Dietary Orders (From admission, onward) Start Ordered 05/25/24 163 Adult diet Diet texture: Clear liquid (Adult [...] Weight: 61.1 kg (134 lb 12.8 oz) [place] body weight: 47.8 kg (105 lb 4.8 oz) Adjusted ideal body weight: 52.8 kg (116 lb 5.7 oz) (126.25%) of IBW Body mass index is 25.13 kg/m??. Adjusted wt: 50.9 kg (if over 125% of IBW) CENTRAL IV Access: PICC (05/18/24) Estimated Nutritional Needs: HBE: 1153 Stress Factor: 1.2-1.4 Total Calories/day: 5163-2709 Protein (amino acids): 1.3-1.6 grams/kg Protein (Amino [...] Care Surgery Pharmacist TPN Pharmacist available on [employer] Chat [1] Patient Active Problem List Diagnosis Anxiety and depression COPD (chronic obstructive pulmonary disease) ([facility]) CAD, multiple vessel NSTEMI (non-ST elevated myocardial infarction) ([facility]) GERD (gastroesophageal reflux disease) Leukocytosis Hyperlipidemia THOM (obstructive sleep apnea) S/P CABG x 4 Hypertension Cardiac volume overload Hypoglycemia Nausea with vomiting Acute blood loss anemia (ABLA) Gastric perforation ([facility]) On total parenteral nutrition (TPN) Ileus ([facility]) Electrolyte abnormality Colon perforation ([facility]) Post-op pain [2] Past Medical History: Diagnosis Date Anxiety COPD (chronic obstructive pulmonary disease) ([facility]) 05/01/2024 Continue Duo nebs q6 SPO2 goal >88% Depression GERD (gastroesophageal reflux disease) 05/01/2024 Continue Protonix 40 mg daily Hyperkalemia 05/06/2024 Now resolved, pt with hypokalemia requiring replacement On mechanically assisted ventilation ([facility]) 05/06/2024 Arrived to ICU intubated 05/07 extubated to 4LNC 05/08 resolved Tobacco use 05/01/2024 Slot Host for smoking 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 Complicates all [...] 1859 05/25/24 1900 - 05/26/24 0659 05/26/24 07 - 05/26/24 1508 Closed/Suction Drain 1 Inferior;Left [...] last 7 days Lab Units 05/26/24 0327 05/25/24203105/25/24 1355 HEMOGLOBIN g/dL 7.1* 7.2* 7.4* HEMATOCRIT [...] Addendum 05/23/2024 8:44 AM by Marybel Suarez, BAT[employer]Y [employer]S ASSEMBLER Patient presented to OSH on 05/01/24 c/o chest pain, C reveal mvCAD S/p CABG with Dr. Austin on 05/07 Anxiety and depression Yes Overview Addendum 05/23/2024 8:43 AM by Marybel Suarez, [employer] ASSEMBLER Continue home bupropion XL 300 mg daily Continue home citalopram 40 mg daily Continue PRN hydroxyzine 25 mg q6 COPD (chronic obstructive pulmonary disease) ([facility]) Yes Overview Addendum 05/23/2024 8:43 AM by Marybel Suarez, ARASH Duo nebs q6 Wean O2 for SPO2 goal >88% NSTEMI (non-ST elevated myocardial infarction) ([facility]) Yes Overview Addendum 05/22/2024 11:00 AM by Jose Aburto MD Diagnosed at OSH with elevated troponins of 0.05 to 0.23 to 0.16 Started on heparin drip BUTCHER'S ASSISTANT, 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 Repeat troponins pending 05/07 [...] Signed 05/23/2024 8:47 AM by Marybel Suarez, [employer]SEMBLER Restart statin when no longer NPO THOM (obstructive sleep apnea) Yes Overview Addendum 05/23/2024 8:45 AM by Marybel Suarez, [employer]SEMBLER Refusing home CPAP remains on NC S/P CABG x 4 Not Applicable Overview Addendum 05/23/2024 8:45 AM by Marybel Suarez, [employer] ASSEMBLER 05/06 4vCABG w/ Dr. Austin Aspirin, statin, beta stacey as clinically appropriate Hypertension Yes Overview Addendum 05/23/2024 8:47 AM by Marybel Suarez, [employer] ASSEMBLER Metop IV while NPO Restart PO metop when appropriate Cardiac volume overload No Overview Addendum 05/18/2024 10:24 AM by Sidney Jackson MD Diuresis as clinically indicated Hypoglycemia No Overview Addendum 05/23/2024 8:46 AM by Marybel Suarez, [employer] ASSEMBLER Resolved once TPN started Nausea with vomiting No Overview Addendum 05/24/2024 11:04 AM by Jose Aburto MD NG in place Okay for sips and chips per surgery team Acute blood loss anemia (ABLA) No Overview Addendum 05/23/2024 8:43 AM by Marybel Suarez, [employer]Y [employer] ASSEMBLER Lab Results Component Value Date HGB 9.0 (L) 05/23/2024 CTM with daily labs Transfuse as indicated Gastric perforation (CMS/HCC) No Overview Addendum 05/24/2024 11:03 AM by Jose Aburto MD Unclear gastric vs colonic perforation. S/p ex lap with blue surgery on 05/23 On total parenteral nutrition (TPN) No Overview Signed 05/21/2024 9:26 AM by Reyna Mcdonald, [employer]SEMBLER Started on 05/20 Ileus (CMS/HCC) No Overview Signed 05/23/2024 8:49 AM by Marybel Suarez, [employer] ASSEMBLER - NGT for decompression - blue surgery consulted, appreciate recs - serial CT abdomen and pelvis - remains NPO, on TPN Electrolyte abnormality Yes Overview Signed 05/23/2024 8:50 AM by Marybel Suarez, [employer] ASSEMBLER - monitor and replace prn Post-op pain [...] advance as tolerated - PPI Edited by: Imna Massey MD at 05/26/2024 1324 Iman Massey MD Procedures Cosigned by Graciela [...] 3. Cardiac volume overload 4. Colon perforation ([facility]) Procedures 05/23/2024 Procedure(s): LAPAROTOMY, EXPLORATORY, possible bowel resection, possible ostomy COLECTOMY, PARTIAL Past Medical History Patient has a past medical history of Anxiety, COPD (chronic obstructive pulmonary disease) ([facility]) (05/01/2024), Depression, GERD (gastroesophageal reflux disease) (05/01/2024), Hyperkalemia (05/06/2024), On mechanically assisted ventilation ([facility]) (05/06/2024), Tobacco use (05/01/2024), and T remor (05/01/2024). Past Surgical History Patient has a past surgical history that includes section, classic; Cholecystectomy; Shoulder surgery; Abdominal adhesion surgery; Hand surgery (Right); and Coronary artery bypass graft (05/06/2024). Precautions Medical Precautions: Fall precautions, Sternal Subjective Pt agreeable to OT session. Participants in Care Family/Caregiver Present: Yes Family/Caregiver: Other (Specify) (Friend) Dynamite Cartridge Crimper: Not Applicable Presentation Oxygen Therapy: Supplemental oxygen O2 Delivery Method: Nasal cannula O2 Flow Rate (L/min): 2 L/min Lines and Tubes: Telemetry Arterial Line 05/23/24 Right Radial (Active) Closed/Suction Drain 1 Inferior;Left Abdomen Bulb 19 Fr. (Active) Closed/Suction Drain 1 Left Abdomen Bulb 19 Fr. (Active) NG/OG [place] Sump 14 Fr Right nostril (Active) Colostomy [...] admission Level of Mobility: Ambulatory- community Mobility [place]: Independent gait without device (pt is the [...] Mobility Bed Mobility Exam: Rolling/Turning Level of [place]: Maximum assist (25% patient effort) Physical/Nonphysical Assist: Verbal Cues, Nonverbal cues (demo/gestures), Additional assist utilized for safety, Moderate cues Bed Mobility Exam: Scooting/Bridging Level of [place]: Minimum assist (75% patient's effort) Physical/Nonphysical Assist: Additional assist utilized for safety, Verbal Cues, Set-up required, Moderate cues Bed Mobility Exam: Supine to Sit Level of [place]: Maximum assist (25% patient's effort) Physical/Nonphysical Assist: Verbal Cues, Nonverbal cues (demo/gestures), Moderate cues, HOB elevated, Additional assist utilized for safety Transfers Transfer Exam: Sit to stand Level of [place]: Contact guard Physical/Nonphysical Assist: Verbal Cues, Moderate cues, Additional assist utilized for safety Assistive Device: Hand held assist Transfer Exam: Stand to Sit Level of [place]: Contact guard Physical/Nonphysical Assist: Verbal Cues, Additional assist utilized for safety, Moderate cues Assistive Device: Hand held assist Transfer Exam: Bed to Chair/Chair to Bed Level of [place]: Minimum assist (75% patient's effort) Physical/Nonphysical Assist: [...] to sit portion of transfer. Standardized Assessments [facility] 6-Click Daily Activities Help from Other: Don/Doff Regular Lower Body Clothings: A lot Help From Other: Bathing: A lot Help From Other: Toileting: A lot Help From Other: Don/Doff Upper Body Clothings: A lot Help From Other: Grooming: Little Help From Other: Eating Meals: A lot [facility] 6 Click - Daily Activities Score: [...] 3. Cardiac volume overload 4. Colon perforation (CMS/HCC) Procedures 05/23/2024 Procedure(s): LAPAROTOMY, EXPLORATORY, possible bowel resection, possible ostomy COLECTOMY, PARTIAL Past Medical History Patient has a past medical history of Anxiety, COPD (chronic obstructive pulmonary disease) ([facility]) (05/01/2024), Depression, GERD (gastroesophageal reflux disease) (05/01/2024), Hyperkalemia (05/06/2024), On mechanically assisted ventilation ([facility]) (05/06/2024), Tobacco use (05/01/2024), and T remor [...] Family/Caregiver Present: Yes Family/Caregiver: Other (Specify) (Friend) Dynamite Cartridge Crimper: Not Applicable Presentation Oxygen Therapy: Supplemental oxygen O2 Delivery Method: Nasal cannula O2 Flow Rate (L/min): 2 L/min Lines and Tubes: Telemetry Arterial Line 05/23/24 Right Radial (Active) Closed/Suction Drain 1 Inferior;Left Abdomen Bulb 19 Fr. (Active) Closed/Suction Drain 1 Left Abdomen Bulb 19 Fr. (Active) NG/OG [place] Sump 14 Fr Right nostril (Active) Colostomy [...] admission Level of Mobility: Ambulatory- community Mobility [place]: Independent gait without device (pt is the [...] Mobility Bed Mobility Exam: Rolling/Turning Level of [place]: Maximum assist (25% patient effort) Physical/Nonphysical Assist: Verbal Cues, Nonverbal cues (demo/gestures), Additional assist utilized for safety, Moderate cues Bed Mobility Exam: Scooting/Bridging Level of [place]: Minimum assist (75% patient's effort) Physical/Nonphysical Assist: Additional assist utilized for safety, Verbal Cues, Set-up required, Moderate cues Bed Mobility Exam: Supine to Sit Level of [place]: Maximum assist (25% patient's effort) Physical/Nonphysical Assist: Verbal Cues, Nonverbal cues (demo/gestures), Moderate cues, HOB elevated, Additional assist utilized for safety Transfers Transfer Exam: Sit to stand Level of [place]: Contact guard Physical/Nonphysical Assist: Verbal Cues, Moderate cues, Additional assist utilized for safety Assistive Device: Hand held assist Transfer Exam: Stand to Sit Level of [place]: Contact guard Physical/Nonphysical Assist: Verbal Cues, Additional assist utilized for safety, Moderate cues Assistive Device: Hand held assist Transfer Exam: Bed to Chair/Chair to Bed Level of [place]: Minimum assist (75% patient's effort) Physical/Nonphysical Assist: [...] mobility. Standardized Assessments [facility] 6-Clicks Mobility Assessment Difficulty patient has turning [...] railing?: A lot [facility] 6-Clicks Mobility Assessment Total : 14 No [...] and depression COPD (chronic obstructive pulmonary disease) ([facility]) NSTEMI (non-ST elevated myocardial infarction) ([facility]) GERD (gastroesophageal reflux disease) Leukocytosis Hyperlipidemia THOM (obstructive sleep apnea) S/P CABG x 4 Hypertension Cardiac volume overload Hypoglycemia Nausea with vomiting Acute blood loss anemia (ABLA) Gastric perforation ([facility]/HCC) On total parenteral nutrition (TPN) Ileus [...] 19 Fr. 05/23/24 1714 Abdomen 1 NG/OG [place] Sump 14 Fr Right nostril 05/11/24 2300 [...] Addendum 05/23/2024 8:43 AM by Marybel Suarez, BAT[employer]Y [employer]S ASSEMBLER Continue home bupropion XL 300 mg daily Continue home citalopram 40 mg daily Continue PRN hydroxyzine 25 mg q6 COPD (chronic obstructive pulmonary disease) ([facility]) Yes Overview Addendum 05/23/2024 8:43 AM by Marybel Suarez, BAT[employer]Y PARTS ASSEMBLER Duo nebs q6 Wean O2 for SPO2 goal >88% NSTEMI (non-ST elevated myocardial infarction) ([facility]) Yes Overview Addendum 05/22/2024 11:00 AM by Jose Aburto MD Diagnosed at OSH with elevated troponins of 0.05 to 0.23 to 0.16 Started on heparin drip BUTCHER'S ASSISTANT, 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 Repeat troponins pending 05/07 [...] Addendum 05/23/2024 8:50 AM by Marybel Suarez, BAT[employer]S ASSEMBLER Remains febrile with elevated EBC Cultures ordered and pending Hyperlipidemia Yes Overview Signed 05/23/2024 8:47 AM by Marybel Suarez, BATTERY PARTS ASSEMBLER Restart statin when no longer NPO THOM (obstructive sleep apnea) Yes Overview Addendum 05/23/2024 8:45 AM by Marybel Suarez, BATTERY PARTS ASSEMBLER Refusing home CPAP remains on NC S/P CABG x 4 Not Applicable Overview Addendum 05/23/2024 8:45 AM by Marybel Suarez, BATTERY PARTS ASSEMBLER 05/06 4vCABG w/ Dr. Austin Aspirin, statin, beta stacey as clinically appropriate Hypertension Yes Overview Addendum 05/23/2024 8:47 AM by Marybel Suarez, BAT[employer]Y PARTS ASSEMBLER Metop IV while NPO Restart PO metop when appropriate Cardiac volume overload No Overview Addendum 05/18/2024 10:24 AM by Sidney Jackson MD Diuresis as clinically indicated Hypoglycemia No Overview Addendum 05/23/2024 8:46 AM by Marybel Suarez, BAT[employer]Y [employer]S ASSEMBLER Resolved once TPN started Nausea with vomiting No Overview Addendum 05/24/2024 11:04 AM by Jose Aburto MD NG in place Okay for sips and chips per surgery team Acute blood loss anemia (ABLA) No Overview Addendum 05/23/2024 8:43 AM by Marybel Suarez, BAT[employer]Y PARTS ASSEMBLER Lab Results Component Value Date HGB 9.0 (L) 05/23/2024 CTM with daily labs Transfuse as indicated Gastric perforation (CMS/HCC) No Overview Addendum 05/24/2024 11:03 AM by Jose Aburto MD Unclear gastric vs colonic perforation. S/p ex lap with blue surgery on 05/23 On total parenteral nutrition (TPN) No Overview Signed 05/21/2024 9:26 AM by Reyna Mcdonald [employer]S ASSEMBLER Started on 05/20 Ileus (CMS/HCC) No Overview Signed 05/23/2024 8:49 AM by Marybel Suarez, BATTERY PARTS ASSEMBLER - NGT for decompression - blue surgery consulted, appreciate recs - serial CT abdomen and pelvis - remains NPO, on TPN Electrolyte abnormality Yes Overview Signed 05/23/2024 8:50 AM by Marybel Suarez, BATTERY PARTS ASSEMBLER - monitor and replace prn Post-op pain [...] Value Units Date/Time Blood Culture (Aerobic/Anaerobet Set) [[id number]] Collected: 05/23/24 1020 Order Status: Completed Specimen: Blood, Venous Updated: 05/24/24 1101 Culture No growth at day 1 Fungal Blood Culture [[id number]] Collected: 05/17/241812 Order Status: Completed Specimen: Blood, Venous Updated: 05/24/2438 Culture No Fungal Growth at 1 Week AFB Blood Culture [[id number]] Collected: 05/17/241812 Order Status: Completed Specimen: Blood, Venous Updated: 05/24/24637 AFB Culture No Mycobacterial Growth at 1 Week Vitals: Visit Vitals BP (!) 106/90 (BP Location: Right arm, Patient Position: Lying) Pulse 106 Temp 37.7 ??C (99.9 ??F) (Bladder) Resp 19 Dudley Coma Scale Score: 15 Shaan Scale Score: [...] Weight: 61.1 kg (134 lb 12.8 oz) [place] body weight: 47.8 kg (105 lb 4.8 oz) Adjusted ideal body weight: 52.8 kg (116 lb 5.7 oz) (126.25%) of IBW Body mass index is 25.13 kg/m??. Adjusted wt: 50.9 kg (if over 125% of IBW) CENTRAL IV Access: PICC (05/18/24) Estimated Nutritional Needs: HBE: 1153 Stress Factor: 1.2-1.4 Total Calories/day: 2141-8707 Protein (amino acids): 1.3-1.6 grams/kg Protein (Amino [...] to 4LNC 05/08 resolved Tobacco use 05/01/2024 Slot Host for smoking 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 Complicates all [...] ostomy. Edited by: Betty Nino MD at 05/25/2024 09 Relevant review of systems was obtained as able and is negative unless stated above in HPI. Vital signs: Vitals: 05/25/24 0600 [...] at 05/25/2024921 Last data filed at 05/25/2024 0600 Gross per 24 hour Intake 2110 ml Output 1950 ml Net 160 ml Lines/Drains/Tubes: Patient Lines/Drains/Airways Status Active Airway None Output by Drain (mL) 05/23/24699 - 05/23/24 18505/23/241899 - 05/24/24 0659 05/24/24 07 - 05/24/24 18505/24/24 190 - 05/25/24 0659 05/25/24 07 - 05/25/24 09 Closed/Suction Drain 1 Inferior;Left Abdomen Bulb 19 [...] EDT Surgical ICU Daily Progress Note 05/24/24 Rerecornelio Hunter HPI 53F with history of HTN, HLD, COPD, GERD, tobacco use, and CAD s/p 4v CABG on 05/06. SGE consulted for contained perforation (stomach versus colon). 05/23: to OR with partial colectomy and ostomy creation for colonic perforation. Interval: In some pain today but sleeping comfortably after pain medication. Edited by: Iman Massey MD at 05/24/2024 0530 Relevant review of systems was obtained as [...] Output by Drain (mL) 05/22/24699 - 05/22/24 18505/22/241899 - 05/23/24 0659 05/23/24 07 - 05/23/24 1859 05/23/24 190 - 05/24/24 0659 05/24/24 07 - [...] mg q6 COPD (chronic obstructive pulmonary disease) ([facility]) Yes Overview Addendum 05/23/2024 8:43 AM by Marybel Suarez APRN Duo nebs q6 Wean O2 for SPO2 goal >88% NSTEMI (non-ST elevated myocardial infarction) ([facility]) Yes Overview Addendum 05/22/2024 11:00 AM by Jose Aburto MD Diagnosed at OSH with elevated troponins of 0.05 to 0.23 to 0.16 Started on heparin drip BUTCHER'S ASSISTANT, 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 Repeat troponins pending 05/07 [...] Addendum 05/23/2024 8:50 AM by Marybel Suarez, BAT[employer]Y PARTS ASSEMBLER Remains febrile with elevated EBC Cultures ordered and pending Hyperlipidemia Yes Overview Signed 05/23/2024 8:47 AM by Marybel Suarez, BATTERY PARTS ASSEMBLER Restart statin when no longer NPO THOM [...] Addendum 05/23/2024 8:46 AM by Marybel Suarez, BATTERY PARTS ASSEMBLER Resolved once TPN started Nausea with vomiting No Overview Addendum 05/24/2024 11:04 AM by Jose Aburto MD NG in place Okay for sips and chips per surgery team Acute blood loss anemia (ABLA) No Overview Addendum 05/23/2024 8:43 AM by Marybel Suarez, BATTERY PARTS ASSEMBLER Lab Results Component Value Date HGB 9.0 [...] Signed 05/23/2024 8:49 AM by Marybel Suarez BATTERY PARTS ASSEMBLER - NGT for decompression - blue surgery [...] 2 piece;Flat Barrier/Pouch 05/24/24 1020 Site Assessment Moist;Raised;Red;[place] 05/24/24 1020 Peristomal Assessment Unable to assess 05/24/24 1020 Treatment Site care 05/23/24 2000 Output (mL) 0 mL 05/24/24 0800 Gastric Output Appearance Loose 05/24/24 1020 Gastric Output Color Brown 05/24/24 1020 [facility] Lazo [facility] 05/24/2024 11:56 AM * Clinician Note - [...] 05/23/24 1714 Abdomen less than 1 NG/OG [place] Sump 14 Fr Right nostril 05/11/24 2300 [...] mg q6 COPD (chronic obstructive pulmonary disease) ([facility]) Yes Overview Addendum 05/23/2024 8:43 AM by Marybel Suarez, ARASH Duo nebs q6 Wean O2 for SPO2 goal >88% NSTEMI (non-ST elevated myocardial infarction) ([facility]) Yes Overview Addendum 05/22/2024 11:00 AM by Jose Aburto MD Diagnosed at OSH with elevated troponins of 0.05 to 0.23 to 0.16 Started on heparin drip BUTCHER'S ASSISTANT, 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 Repeat troponins pending 05/07 [...] Signed 05/23/2024 8:47 AM by Marybel Suarez, BATTERY PARTS ASSEMBLER Restart statin when no longer NPO THOM (obstructive sleep apnea) Yes Overview Addendum 05/23/2024 8:45 AM by Marybel Suarez, BATTERY PARTS ASSEMBLER Refusing home CPAP remains on NC S/P CABG x 4 Not Applicable Overview Addendum 05/23/2024 8:45 AM by Marybel Suarez, BATTERY PARTS ASSEMBLER 05/06 4vCABG w/ Dr. Austin Aspirin, statin, beta stacey as clinically appropriate Hypertension Yes Overview Addendum 05/23/2024 8:47 AM by Marybel Suarez, BATTERY PARTS ASSEMBLER Metop IV while NPO Restart PO metop when appropriate Cardiac volume overload No Overview Addendum 05/18/2024 10:24 AM by Sidney Jackson MD Diuresis as clinically indicated Hypoglycemia No Overview Addendum 05/23/2024 8:46 AM by Marybel Suarez, BATTERY PARTS ASSEMBLER Resolved once TPN started Nausea with vomiting No Overview Addendum 05/24/2024 11:04 AM by Jose Aburto MD NG in place Okay for sips and chips per surgery team Acute blood loss anemia (ABLA) No Overview Addendum 05/23/2024 8:43 AM by Marybel Suarez, BATTERY PARTS ASSEMBLER Lab Results Component Value Date HGB 9.0 (L) 05/23/2024 CTM with daily labs Transfuse as indicated Gastric perforation (CMS/HCC) No Overview Addendum 05/24/2024 11:03 AM by Jose Aburto MD Unclear gastric vs colonic perforation. S/p ex lap with blue surgery on 05/23 On total parenteral nutrition (TPN) No Overview Signed 05/21/2024 9:26 AM by Reyna Mcdonald BAT[employer]Y [employer]S ASSEMBLER Started on 05/20 Ileus (CMS/HCC) No Overview Signed 05/23/2024 8:49 AM by Marybel Suarez, BATTERY PARTS ASSEMBLER - NGT for decompression - blue surgery consulted, appreciate recs - serial CT abdomen and pelvis - remains NPO, on TPN Electrolyte abnormality Yes Overview Signed 05/23/2024 8:50 AM by Marybel Suarez, BATTERY PARTS ASSEMBLER - monitor and replace prn Colon perforation [...] Note Rere Hunter 53 y.o. female CSN: [id number] Admission: 05/01/2024 11:01 PM Primary Problem: CAD, [...] Component Value Units Date/Time Fungal Blood Culture [[id number]] Collected: 05/17/241812 Order Status: Completed Specimen: Blood, Venous Updated: 05/24/24 0638 Culture No Fungal Growth at 1 Week AFB Blood Culture [[id number]] Collected: 05/17/241812 Order Status: Completed Specimen: Blood, Venous Updated: 05/24/24 0638 AFB Culture No Mycobacterial Growth at 1 Week Blood Culture (Aerobic/Anaerobet Set) [[id number]] Collected: 05/23/24 1020 Order Status: Completed Specimen: Blood, Venous Updated: 05/23/24 1201 Culture Culture in lab Blood Culture (Aerobic/Anaerobet Set) [[id number]] Collected: 05/17/24 1116 Order Status: Completed Specimen: [...] 05/18/241717 NPO diet Diet effective now 05/18/24 171 Current Medications aspirin, 150 mg, Rectal, Daily [...] Weight: 61.1 kg (134 lb 12.8 oz) [place] body weight: 47.8 kg (105 lb 4.8 oz) Adjusted ideal body weight: 52.8 kg (116 lb 5.7 oz) (126.25%) of IBW Body mass index is 25.13 kg/m??. Adjusted wt: 50.9 kg (if over 125% of IBW) CENTRAL IV Access: PICC (05/18/24) Estimated Nutritional Needs: HBE: 1153 Stress Factor: 1.2-1.4 Total Calories/day: 0468-2994 Protein (amino acids): 1.3-1.6 grams/kg Protein (Amino [...] with the IV room. Thank you, Db Kline PharmD Candidate 2024 Preceptor - Magalie SparksD [1] Patient Active Problem List Diagnosis Anxiety and depression COPD (chronic obstructive pulmonary disease) ([facility]) CAD, multiple vessel NSTEMI (non-ST elevated myocardial infarction) ([facility]) GERD (gastroesophageal reflux disease) Leukocytosis Hyperlipidemia THOM (obstructive sleep apnea) S/P CABG x 4 Hypertension Cardiac volume overload Hypoglycemia Nausea with vomiting Acute blood loss anemia (ABLA) Gastric perforation ([facility]) On total parenteral nutrition (TPN) Ileus ([facility]) Electrolyte abnormality Colon perforation ([facility]) [2] Past Medical History: Diagnosis Date Anxiety COPD (chronic obstructive pulmonary disease) ([facility] [facility]) 05/01/2024 Continue Duo nebs q6 SPO2 goal >88% Depression GERD (gastroesophageal reflux disease) 05/01/2024 Continue Protonix 40 mg daily Hyperkalemia 05/06/2024 Now resolved, pt with hypokalemia requiring replacement On mechanically assisted ventilation ([facility]) 05/06/2024 Arrived to ICU intubated 05/07 extubated to 4LNC 05/08 resolved Tobacco use 05/01/2024 Slot Host for smoking 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 Complicates all [...] 3:06 PM EDT Associated attestation - Moni Méndez PharmD - 05/24/2024 3:06 PM EDT I [...] - 05/22/24 0659 05/22/24 07 - 05/22/24 18505/22/24 190 - [...] Addendum 05/23/2024 8:44 AM by Marybel Suarez, BATTERY PARTS ASSEMBLER Patient presented to OSH on 05/01/24 c/o chest pain, LHC reveal mvCAD S/p CABG with Dr. Austin on 05/07 Anxiety and depression Yes Overview Addendum 05/23/2024 8:43 AM by Marybel Suarez, BAT[employer]Y [employer]S ASSEMBLER Continue home bupropion XL 300 mg daily Continue home citalopram 40 mg daily Continue PRN hydroxyzine 25 mg q6 COPD (chronic obstructive pulmonary disease) ([facility]) Yes Overview Addendum 05/23/2024 8:43 AM by Marybel Suarez, ARASH Duo nebs q6 Wean O2 for SPO2 goal >88% NSTEMI (non-ST elevated myocardial infarction) ([facility]) Yes Overview Addendum 05/22/2024 11:00 AM by Jose Aburto MD Diagnosed at OSH with elevated troponins of 0.05 to 0.23 to 0.16 Started on heparin drip BUTCHER'S ASSISTANT, 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 Repeat troponins pending 05/07 [...] Addendum 05/23/2024 8:50 AM by Marybel Suarez, BAT[employer] ASSEMBLER Remains febrile with elevated EBC Cultures ordered and pending Hyperlipidemia Yes Overview Signed 05/23/2024 8:47 AM by Marybel Suarez, BATTERY [employer]S ASSEMBLER Restart statin when no longer NPO THOM (obstructive sleep apnea) Yes Overview Addendum 05/23/2024 8:45 AM by Marybel Suarez, BAT[employer]Y [employer]S ASSEMBLER Refusing home CPAP remains on NC S/P [...] Addendum 05/23/2024 8:43 AM by Marybel Suarez, BAT[employer]Y [employer] ASSEMBLER Lab Results Component Value Date HGB 9.0 [...] PM EDT Operative Note Date: 05/23/24 Location: [facility] Name: Rere Hunter, : 1970, Diagnoses: Pre-op Diagnosis Colon perforation (CMS/HCC) Post-op Diagnosis Colon perforation (CMS/HCC) Procedure(s): Left colon resection, drainage of abscess Attending Surgeon(s): Panel 1: * Judy Mancuso - Primary Panel 2: * Lidia Troncoso - Primary Ditch Inspector(s): Panel 1: * Betty Nino MD - Resident - Assisting Anesthesia: General ASA: IV Blood Administration: Blood Product Administration History Product Date Volume Status Transfuse RBC RBC 05/23/2024 350 mL Stopped Transfuse RBC 05/17/2024 300 mL Completed 05/17/24 1446 Transfuse RBC 05/14/2024 300 mL Completed 05/14/24 1526 Transfuse RBC 05/09/2024 300 mL Completed 05/09/24 0701 Transfuse platelets PLT 05/06/2024 200 mL Completed 05/06/24 2108 Transfuse RBC RBC 05/06/2024 350 mL Completed 05/06/24 210 Transfuse platelets PLT 05/06/2024 208 mL Completed 05/06/24 210 Transfuse RBC RBC [...] 05/24/24 0400 Output (mL) 35 mL 05/24/24 0600 NG/OG [place] Sump 14 Fr Right nostril (Active) Placement [...] ill patient 05/24/24399 Output (mL) 100 mL 05/24/24 06 Specimen: Specimens ID Source Frozen? 1 Other [...] PM EDT Operative Note Date: 05/23/24 Location: [facility] Name: Rere Hunter, : 1970, Diagnoses: Pre-op Diagnosis Hollow viscus perforation Post-op Diagnosis Colon perforation (CMS/HCC) Procedure(s): Exploratory laparotomy Extensive lysis of adhesions Left colectomy (performed by colorectal surgery) End colostomy creation Abdominal washout Application of negative pressure wound VAC therapy to skin and soft tissues Attending Surgeon(s): Panel 1: * Judy Mancuso - Primary Panel 2: * Lidia Troncoso - Primary Ditch Inspector(s): Panel 1: * Betty Nino MD - [...] Output (mL) 35 mL 05/24/24 06 NG/OG [place] Sump 14 Fr Right nostril (Active) Placement [...] Peristomal Assessment Clean;Intact 05/24/24399 Treatment Site care 05/23/24 2000 Output (mL) 50 mL 05/24/24399 Gastric Output [...] ill patient 05/24/24399 Output (mL) 100 mL 04/10/25 0600 Specimen: Specimens ID Source Frozen? 1 [...] Anterior;Left Forearm 05/12/24 0030 Forearm 11 NG/OG [place] Sump 14 Fr Right nostril 05/11/24 2300 Right nostril 11 GCS: Dudley Coma Scale Score: 15 Review of Systems [...] mg q6 COPD (chronic obstructive pulmonary disease) ([facility]) Yes Overview Addendum 05/23/2024 8:43 AM by Marybel Suarez APRN Duo nebs q6 Wean O2 for SPO2 goal >88% NSTEMI (non-ST elevated myocardial infarction) ([facility]) Yes Overview Addendum 05/22/2024 11:00 AM by Jose Aburto MD Diagnosed at OSH with elevated troponins of 0.05 to 0.23 to 0.16 Started on heparin drip BUTCHER'S ASSISTANT, 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 Repeat troponins pending 05/07 [...] Signed 05/23/2024 8:47 AM by Marybel Suarez, BAT[employer]Y [employer] ASSEMBLER Restart statin when no longer NPO THOM (obstructive sleep apnea) Yes Overview Addendum 05/23/2024 8:45 AM by Marybel Suarez, BAT[employer] ASSEMBLER Refusing home CPAP remains on NC S/P CABG x 4 Not Applicable Overview Addendum 05/23/2024 8:45 AM by Marybel Suarez, BATTERY [employer]S ASSEMBLER 05/06 4vCABG w/ Dr. Austin Aspirin, statin, beta stacey as clinically appropriate Hypertension Yes Overview Addendum 05/23/2024 8:47 AM by Marybel Suarez, BAT[employer]Y [employer]S ASSEMBLER Metop IV while NPO Restart PO metop when appropriate Cardiac volume overload No Overview Addendum 05/18/2024 10:24 AM by Sidney Jackson MD Diuresis as clinically indicated Hypoglycemia No Overview Addendum 05/23/2024 8:46 AM by Marybel Suarez, BAT[employer]Y [employer]S ASSEMBLER Resolved once TPN started Nausea with vomiting [...] Addendum 05/23/2024 8:43 AM by Marybel Suarez, BAT[employer]S ASSEMBLER Lab Results Component Value Date HGB 9.0 [...] and depression COPD (chronic obstructive pulmonary disease) ([facility]) NSTEMI (non-ST elevated myocardial infarction) ([facility]) GERD (gastroesophageal reflux disease) Leukocytosis Hyperlipidemia THOM [...] Arterial Line 05/23/24 Right Radial (Active) NG/OG [place] Sump 14 Fr Right nostril (Active) Urethral [...] to redirect Transfers Toilet Transfer Level of [place]: Contact guard Physical/Nonphysical Assist: Verbal Cues, Moderate [...] date. Participants in Care Family/Caregiver Present: No Dynamite Cartridge Crimper: Not Applicable Presentation Oxygen Therapy: Supplemental oxygen O2 Delivery Method: Nasal cannula O2 Flow Rate (L/min): 2 L/min Lines and Tubes: Telemetry NG/OG [place] Sump 14 Fr Right nostril (Active) PICC [...] Mobility Bed Mobility Exam: Rolling/Turning Level of [place]: Contact guard Physical/Nonphysical Assist: Verbal Cues, Nonverbal cues (demo/gestures), Additional assist utilized for safety, Moderate cues Bed Mobility Exam: Scooting/Bridging Level of [place]: Contact guard Physical/Nonphysical Assist: Additional assist utilized for safety, Verbal Cues, Set-up required Bed Mobility Exam: Supine to Sit Level of [place]: Contact guard Physical/Nonphysical Assist: Verbal Cues, Nonverbal cues (demo/gestures), Moderate cues, HOB elevated Bed Mobility Exam: Sit to Supine Level of [place]: Contact guard Physical/Nonphysical Assist: HOB elevated, Nonverbal cues (demo/gestures), Verbal Cues, Moderate cues, Additional assist utilized for safety Transfers Transfer Exam: Sit to stand Level of [place]: Contact guard Physical/Nonphysical Assist: Verbal Cues, Moderate cues, Additional assist utilized for safety Assistive Device: Rollator Transfer Exam: Stand to Sit Level of [place]: Contact guard Physical/Nonphysical Assist: Verbal Cues, Set-up required, Additional assist utilized for safety Assistive Device: Rollator Toilet Transfer Level of [place]: Contact guard Physical/Nonphysical Assist: Supervision, Verbal Cues, [...] Value Units Date/Time Blood Culture (Aerobic/Anaerobet Set) [[id number]] Collected: 05/17/24 1116 Order Status: Completed Specimen: Blood from Wrist, Right Updated: 05/22/24 1201 Culture No growth at day 5 Vitals: Visit Vitals BP 107/68 Pulse 95 Temp 37.9 ??C (100.2 ??F) (Bladder) Resp 18 [place]ley Coma Scale Score: 15 Shaan Scale Score: 23 Oxygen Therapy: None (Room air) Skin Integrity: Bruising Edema: Generalized Wt Readings from Last 3 Encounters: 05/22/24 58.6 kg (129 lb 3 oz) 06/28/23 59 kg (130 lb) 04/26/23 62.6 kg (138 lb) Current Diet Order: Dietary Orders (From admission, onward) Start Ordered 05/18/241717 NPO diet Diet effective now 05/18/24 171 Current Medications aspirin, 150 mg, Rectal, Daily [...] Weight: 61.1 kg (134 lb 12.8 oz) [place] body weight: 47.8 kg (105 lb 4.8 oz) Adjusted ideal body weight: 52.8 kg (116 lb 5.7 oz) (126.25%) of IBW Body mass index is 25.13 kg/m??. Adjusted wt: 50.9 kg (if over 125% of IBW) CENTRAL IV Access: PICC (05/18/24) Estimated Nutritional Needs: HBE: 1153 Stress Factor: 1.2-1.4 Total Calories/day: 2859-3350 Protein (amino acids): 1.3-1.6 grams/kg Protein (Amino [...] with the IV room. Thank you, Db Kline PharmD Candidate 2024 Preceptor - Magalie SparksD [1] Patient Active Problem List Diagnosis Anxiety and depression COPD (chronic obstructive pulmonary disease) ([facility]) CAD, multiple vessel NSTEMI (non-ST elevated myocardial infarction) ([facility]) GERD (gastroesophageal reflux disease) Leukocytosis Hyperlipidemia THOM (obstructive sleep apnea) S/P CABG x 4 Hypertension Hyperkalemia Cardiac volume overload Hypoglycemia Nausea with vomiting Acute blood loss anemia (ABLA) Gastric perforation ([facility]) On total parenteral nutrition (TPN) [2] Past Medical History: Diagnosis Date Anxiety COPD (chronic obstructive pulmonary disease) ([facility]) 05/01/2024 Continue Duo nebs q6 SPO2 goal >88% Depression GERD (gastroesophageal reflux disease) 05/01/2024 Continue Protonix 40 mg daily On mechanically assisted ventilation ([facility]) 05/06/2024 Arrived to ICU intubated 05/07 extubated to 4LNC 05/08 resolved Tobacco use 05/01/2024 Slot Host for smoking 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 Complicates all [...] TPN with watchful waiting. Edited by: Katelyn Lazo APRN at 05/22/2024 1623 Relevant review of systems [...] main artery stenosis Started on heparin drip BUTCHER'S ASSISTANT, continue CT Surgery consulted CABG work-up pending [...] mg q6 COPD (chronic obstructive pulmonary disease) ([facility]) Yes Overview Addendum 05/12/2024 12:27 PM by Christi Sherman APRN 05/07 Duo nebs q6 SPO2 goal >88% On 4LNC 05/08 on 2LNC 05/09 on 2LNC +40 lasix 05/12 ongoing 3L NSTEMI (non-ST elevated myocardial infarction) ([facility]) Yes Overview Addendum 05/22/2024 11:00 AM by Jose Aburto MD Diagnosed at OSH with elevated troponins of 0.05 to 0.23 to 0.16 Started on heparin drip BUTCHER'S ASSISTANT, 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 Repeat troponins pending 05/07 [...] Anterior;Left Forearm 05/12/24 0030 Forearm 10 NG/OG [place] Sump 14 Fr Right nostril 05/11/24 2300 Right nostril 10 Urethral Catheter Temperature probe 05/17/24 1430 -- 4 GCS: Jaida Coma Scale Score: 15 [...] main artery stenosis Started on heparin drip BUTCHER'S ASSISTANT, continue CT Surgery consulted CABG work-up pending 05/07 POD 1 4vCABG 05/08 P[address] recs ASA BB statin 05/[address] recs CXR, diuresis and metoprolol to 50 05/[address] recs serial KUB. DVT pro, remove CT 05/11 ASA/statin/BB Anxiety and depression Yes Overview Addendum 05/13/2024 12:37 PM by Christi Sherman, BATTERY PARTS ASSEMBLER 05/07 Continue home bupropion XL 300 mg daily Continue home citalopram 40 mg daily Continue PRN hydroxyzine 25 mg q6 COPD (chronic obstructive pulmonary disease) ([facility]) Yes Overview Addendum 05/12/2024 12:27 PM by Christi Sherman, BATTERY PARTS ASSEMBLER 05/07 Duo nebs q6 SPO2 goal >88% On 4LNC 05/08 on 2LNC 05/09 on 2LNC +40 lasix 05/12 ongoing 3L NSTEMI (non-ST elevated myocardial infarction) ([facility]) Yes Overview Addendum 05/22/2024 11:00 AM by Jose Aburto MD Diagnosed at OSH with elevated troponins of 0.05 to 0.23 to 0.16 Started on heparin drip BUTCHER'S ASSISTANT, 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 Repeat troponins pending 05/07 [...] Yes Overview Signed 05/13/2024 12:38 PM by LaneChristi quiroz APRN trending Hyperlipidemia Yes THOM (obstructive sleep [...] and depression COPD (chronic obstructive pulmonary disease) ([facility]) NSTEMI (non-ST elevated myocardial infarction) (CMS/HCC) GERD [...] Value Units Date/Time Blood Culture (Aerobic/Anaerobet Set) [[id number]] Collected: 05/17/24 1116 Order Status: Completed Specimen: Blood from Wrist, Right Updated: 05/21/24 1201 Culture No growth at day 4 Vitals: Visit Vitals BP 122/69 Pulse 85 Temp 37.5 ??C (99.5 ??F) (Bladder) Resp 21 Jaida Coma Scale Score: 15 [...] Weight: 61.1 kg (134 lb 12.8 oz) [place] body weight: 47.8 kg (105 lb 4.8 oz) Adjusted ideal body weight: 52.8 kg (116 lb 5.7 oz) (126.25%) of IBW Body mass index is 25.13 kg/m??. Adjusted wt: 50.9 kg (if over 125% of IBW) CENTRAL IV Access: PICC (05/18/24) Estimated Nutritional Needs: HBE: 1153 Stress Factor: 1.2-1.4 Total Calories/day: 2370-8299 Protein (amino acids): 1.3-1.6 grams/kg Protein (Amino [...] and depression COPD (chronic obstructive pulmonary disease) ([facility]) CAD, multiple vessel NSTEMI (non-ST elevated myocardial infarction) ([facility]) GERD (gastroesophageal reflux disease) Leukocytosis Hyperlipidemia THOM (obstructive sleep apnea) S/P CABG x 4 Hypertension Hyperkalemia Cardiac volume overload Hypoglycemia Nausea with vomiting Acute blood loss anemia (ABLA) Gastric perforation ([facility]) On total parenteral nutrition (TPN) [2] Past Medical History: Diagnosis Date Anxiety COPD (chronic obstructive pulmonary disease) ([facility]) 05/01/2024 Continue Duo nebs q6 SPO2 goal >88% Depression GERD (gastroesophageal reflux disease) 05/01/2024 Continue Protonix 40 mg daily On mechanically assisted ventilation ([facility]) 05/06/2024 Arrived to ICU intubated 05/07 extubated to 4LNC 05/08 resolved Tobacco use 05/01/2024 Slot Host for smoking 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 Complicates all [...] Note Rere Hunter 53 y.o. female CSN: [id number] Room/Bed 216/216A Nutrition evaluation type: follow-up Reason [...] (Calculated): 25.46 Weight Evaluation: Overweight (BMI 25-29.9) [place] Body Weight (kg): 47.7 Percent [place] Body Weight: 126 Adjusted Body Weight (kg): 50.9 Estimated Needs: Kcal/ K-30 Kcal Provided: 4746-6675 Kcal Needs Based On: Adjusted weight Gm [...] Provided: Will monitor Pertinent home medications: reviewed Sabianism needs: Nutrition Focused Physical Exam: Physical exam [...] Date Anxiety COPD (chronic obstructive pulmonary disease) ([facility]) 05/01/2024 Continue Duo nebs q6 SPO2 goal >88% Depression GERD (gastroesophageal reflux disease) 05/01/2024 Continue Protonix 40 mg daily On mechanically assisted ventilation ([facility]) 05/06/2024 Arrived to ICU intubated 05/07 extubated to 4LNC 05/08 resolved Tobacco use 05/01/2024 Slot Host for smoking 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 Complicates all [...] Edited by: Iman Massey MD at 05/21/2024 5810 Relevant review of systems was obtained as [...] Method: Nasal cannula Output by Drain (mL) 05/19/24 07 - 05/19/24 18505/19/24 190 - 05/20/24 0659 05/20/24 07 - 05/20/24 1859 05/20/24 190 - 05/21/24 0659 05/21/24 07 - 05/21/24 1651 Requested LDAs do not [...] main artery stenosis Started on heparin drip BUTCHER'S ASSISTANT, continue CT Surgery consulted CABG work-up pending [...] mg q6 COPD (chronic obstructive pulmonary disease) ([facility]) Yes Overview Addendum 05/12/2024 12:27 PM by Christi Sherman APRN 05/07 Duo nebs q6 SPO2 goal >88% On 4LNC 05/08 on 2LNC 05/09 on 2LNC +40 lasix 05/12 ongoing 3L NSTEMI (non-ST elevated myocardial infarction) ([facility]) Yes Overview Addendum 05/11/2024 10:54 AM by Miguel Downey MD Diagnosed at OSH with elevated troponins of 0.05 to 0.23 to 0.16 Started on heparin drip BUTCHER'S ASSISTANT, 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 Repeat troponins pending 05/07 [...] Applicable Overview Addendum 05/12/2024 12:26 PM by Chritsi Sherman APRN 05/06 w/Reda 4 chest tubes [...] Note Rere Hunter 53 y.o. female CSN: [id number] Admission: 05/01/2024 11:01 PM Primary Problem: CAD, [...] DC planning and needs as appropriate. Addendum: SW received securechat request from bedside RN asking [...] Anterior;Right;Upper Arm 05/18/24 0400 Arm 3 NG/OG [place] Sump 14 Fr Right nostril 05/11/24 2300 [...] main artery stenosis Started on heparin drip BUTCHER'S ASSISTANT, continue CT Surgery consulted CABG work-up pending [...] mg q6 COPD (chronic obstructive pulmonary disease) ([facility]) Yes Overview Addendum 05/12/2024 12:27 PM by Christi Sherman APRN 05/07 Duo nebs q6 SPO2 goal >88% On 4LNC 05/08 on 2LNC 05/09 on 2LNC +40 lasix 05/12 ongoing 3L NSTEMI (non-ST elevated myocardial infarction) ([facility]) Yes Overview Addendum 05/11/2024 10:54 AM by Miguel Downey MD Diagnosed at OSH with elevated troponins of 0.05 to 0.23 to 0.16 Started on heparin drip BUTCHER'S ASSISTANT, 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 Repeat troponins pending 05/07 [...] of Anxiety, COPD (chronic obstructive pulmonary disease) ([facility]) (05/01/2024), Depression, GERD (gastroesophageal reflux disease) (05/01/2024), On mechanically assisted ventilation ([facility]) (05/06/2024), Tobacco use (05/01/2024), and Tremor (05/01/2024). [...] Care Family/Caregiver Present: No Family/Caregiver: Adult Son Dynamite Cartridge Crimper: Not Applicable Presentation Oxygen Therapy: Supplemental oxygen [...] admission Level of Mobility: Ambulatory- community Mobility [place]: Independent gait without device (pt is the [...] Mobility Bed Mobility Exam: Rolling/Turning Level of [place]: Moderate assist (50% patient effort) Physical/Nonphysical Assist: Verbal Cues, Nonverbal cues (demo/gestures), Additional assist utilized for safety, Moderate cues Bed Mobility Exam: Scooting/Bridging Level of [place]: Contact guard (Scoot to edge of bed) Physical/Nonphysical Assist: Additional assist utilized for safety, Verbal Cues, Set-up required Bed Mobility Exam: Supine to Sit Level of [place]: Moderate assist (50% patient's effort) Physical/Nonphysical Assist: Verbal Cues, Nonverbal cues (demo/gestures), Moderate cues, HOB elevated Transfers Transfer Exam: Sit to stand Level of [place]: Contact guard Physical/Nonphysical Assist: Verbal Cues, Moderate cues, 1 person + 1 person to manage equipment Assistive Device: Hand held assist Transfer Exam: Stand to Sit Level of [place]: Contact guard Physical/Nonphysical Assist: Verbal Cues, Set-up required Assistive Device: Hand held assist Transfer Exam: Bed to Chair/Chair to Bed Level of [place]: Minimum assist (75% patient's effort) Physical/Nonphysical Assist: [...] HEP. Standardized Assessments [facility] 6-Clicks Mobility Assessment Difficulty patient has turning [...] railing?: A lot [facility] 6-Clicks Mobility Assessment Total : 16 Assessment [...] of Anxiety, COPD (chronic obstructive pulmonary disease) ([facility]) (05/01/2024), Depression, GERD (gastroesophageal reflux disease) (05/01/2024), On mechanically assisted ventilation ([facility]) (05/06/2024), Tobacco use (05/01/2024), and Tremor (05/01/2024). [...] 1 L/min Lines and Tubes: Telemetry NG/OG [place] Sump 14 Fr Right nostril (Active) Urethral [...] admission Level of Mobility: Ambulatory- community Mobility [place]: Independent gait without device (pt is the [...] Mobility Bed Mobility Exam: Scooting/Bridging Level of [place]: Contact guard (Scoot to edge of bed) Physical/Nonphysical Assist: Additional assist utilized for safety, Verbal Cues, Set-up required Bed Mobility Exam: Supine to Sit Level of [place]: Moderate assist (50% patient's effort) Physical/Nonphysical Assist: Verbal Cues, Nonverbal cues (demo/gestures), Moderate cues, HOB elevated Transfers Transfer Exam: Sit to stand Level of [place]: Contact guard Physical/Nonphysical Assist: Verbal Cues, Moderate cues, 1 person + 1 person to manage equipment Assistive Device: Hand held assist Transfer Exam: Stand to Sit Level of [place]: Contact guard Physical/Nonphysical Assist: Verbal Cues, Set-up required Assistive Device: Hand held assist Transfer Exam: Bed to Chair/Chair to Bed Level of [place]: Minimum assist (75% patient's effort) Physical/Nonphysical Assist: Verbal Cues, Moderate cues, Additional assist utilized for safety, Nonverbal cues (demo/gestures) Type of Transfer: Sidesteps Assistive Device: Hand held assist Toilet Transfer Level of [place]: Minimum assist (75% patient's effort) Physical/Nonphysical Assist: [...] bed to recliner with min A via [employer] G[employer] TREATING UNIT OPERATOR. Pt required increased time on BSC and supervision for safety. Pt required min A to stand from BSC and total A for posterior hygiene due to impaired dynamic balance requiring UE support to maintain balance. Pt required min A via [employer] G[employer] TREATING UNIT OPERATOR to take side steps to recliner. Pt [...] maximize muscle gain with exercises. Access Code: [email or web address] URL: [email or web address] Date: 05/21/2024Prepared by: Bryson Exercises - Seated [...] 3 sets - 10 reps Standardized Assessments [facility] 6-Click Daily Activities Help from Other: Don/Doff Regular Lower Body Clothings: A lot Help From Other: Bathing: A lot Help From Other: Toileting: A lot Help From Other: Don/Doff Upper Body Clothings: Little Help From Other: Grooming: Little Help From Other: Eating Meals: Total (NPO on TPN) [facility] 6 Click - Daily Activities Score: [...] 115* -- < > -- CO2 mmol/L -- 23 23 21* -- 21* 20* [...] 05/20/24 2348 05/20/24 1835 05/20/24 0215 05/19/24 18305/19/24 1142 05/19/24 0202 05/18/24 0400 05/18/24 0020 [...] Value Units Date/Time Blood Culture (Aerobic/Anaerobet Set) [[id number]] Collected: 05/17/24 1116 Order Status: Completed Specimen: Blood from Wrist, Right Updated: 05/20/24 1201 Culture No growth at day 3 Comprehensive GI Panel by PCR [[id number]] (Normal) Collected: 05/18/24 2347 Order Status: Completed [...] Weight: 61.1 kg (134 lb 12.8 oz) [place] body weight: 47.8 kg (105 lb 4.8 oz) Adjusted ideal body weight: 52.8 kg (116 lb 5.7 oz) (126.25%) of IBW Body mass index is 25.13 kg/m??. Adjusted wt: 50.9 kg (if over 125% of IBW) CENTRAL IV Access: PICC (05/18/24) Estimated Nutritional Needs: HBE: 1153 Stress Factor: 1.2-1.4 Total Calories/day: 7151-7275 Protein (amino acids): 1.3-1.6 grams/kg Protein (Amino [...] and depression COPD (chronic obstructive pulmonary disease) ([facility]) CAD, multiple vessel NSTEMI (non-ST elevated myocardial infarction) ([facility]) GERD (gastroesophageal reflux disease) Leukocytosis Hyperlipidemia THOM (obstructive sleep apnea) S/P CABG x 4 Hypertension Hyperkalemia Cardiac volume overload Hypoglycemia Nausea with vomiting Acute blood loss anemia (ABLA) Gastric perforation ([facility]) [2] Past Medical History: Diagnosis Date Anxiety COPD (chronic obstructive pulmonary disease) ([facility]) 05/01/2024 Continue Duo nebs q6 SPO2 goal >88% Depression GERD (gastroesophageal reflux disease) 05/01/2024 Continue Protonix 40 mg daily On mechanically assisted ventilation ([facility]) 05/06/2024 Arrived to ICU intubated 05/07 extubated to 4LNC 05/08 resolved Tobacco use 05/01/2024 Slot Host for smoking 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 Complicates all [...] and depression COPD (chronic obstructive pulmonary disease) ([facility]) NSTEMI (non-ST elevated myocardial infarction) ([facility]) GERD (gastroesophageal reflux disease) Leukocytosis Hyperlipidemia THOM (obstructive sleep apnea) S/P CABG x 4 Hypertension Hyperkalemia Cardiac volume overload Hypoglycemia Nausea with vomiting Acute blood loss anemia (ABLA) Gastric perforation ([facility]) On total parenteral nutrition (TPN) 53 yrs [...] Anterior;Right;Upper Arm 05/18/24 0400 Arm 2 NG/OG [place] Sump 14 Fr Right nostril 05/11/24 2300 Right nostril 8 Urethral Catheter Temperature probe 05/17/24 1430 -- 2 Arterial Line 05/17/24 Right Radial 05/17/24 1400 Radial 2 GCS: Dudley Coma Scale Score: 15 Review of Systems [...] main artery stenosis Started on heparin drip BUTCHER'S ASSISTANT, continue CT Surgery consulted CABG work-up pending 05/07 POD 1 4vCABG 05/08 POD [address] recs ASA BB statin 05/[address] recs CXR, diuresis and metoprolol to 50 05/[address] recs serial KUB. DVT pro, remove CT 05/11 ASA/statin/BB Anxiety and depression Yes Overview Addendum 05/13/2024 12:37 PM by Christi Sherman, ARASH 05/07 Continue home bupropion XL 300 mg daily Continue home citalopram 40 mg daily Continue PRN hydroxyzine 25 mg q6 COPD (chronic obstructive pulmonary disease) ([facility]) Yes Overview Addendum 05/12/2024 12:27 PM by Christi Sherman, ARASH 05/07 Duo nebs q6 SPO2 goal >88% On 4LNC 05/08 on 2LNC 05/09 on 2LNC +40 lasix 05/12 ongoing 3L NSTEMI (non-ST elevated myocardial infarction) ([facility]) Yes Overview Addendum 05/11/2024 10:54 AM by Miguel Downey MD Diagnosed at OSH with elevated troponins of 0.05 to 0.23 to 0.16 Started on heparin drip BUTCHER'S ASSISTANT, 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 Repeat troponins pending 05/07 [...] Value Units Date/Time Blood Culture (Aerobic/Anaerobet Set) [[id number]] Collected: 05/13/24 0947 Order Status: Completed Specimen: Blood from AC, Right Updated: 05/16/24 1101 Culture No growth at day 3 Vitals: Visit Vitals BP (!) 66/17 Pulse 95 Temp 37.7 ??C (99.9 ??F) (Bladder) Resp 22 Dudley Coma Scale Score: 15 Shaan Scale Score: [...] Weight: 61.1 kg (134 lb 12.8 oz) [place] body weight: 47.8 kg (105 lb 4.8 oz) Adjusted ideal body weight: 52.8 kg (116 lb 5.7 oz) (126.25%) of IBW Body mass index is 25.13 kg/m??. Adjusted wt: 50.9 kg (if over 125% of IBW) CENTRAL IV Access: PICC (05/18/24) Estimated Nutritional Needs: HBE: 1153 Stress Factor: 1.2-1.4 Total Calories/day: 3111-7311 Protein (amino acids): 1.3-1.6 grams/kg Protein (Amino [...] - 05/18/24 18505/18/24 190 - 05/19/24 0659 05/19/24 07 - 05/19/24 18505/19/241899 - 05/20/24 0659 05/20/24 07 - 05/20/24 [...] main artery stenosis Started on heparin drip BUTCHER'S ASSISTANT, continue CT Surgery consulted CABG work-up pending [...] ongoing 3L NSTEMI (non-ST elevated myocardial infarction) ([facility]) Yes Overview Addendum 05/11/2024 10:54 AM by Miguel Downey MD Diagnosed at OSH with elevated troponins of 0.05 to 0.23 to 0.16 Started on heparin drip BUTCHER'S ASSISTANT, 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 Repeat troponins pending 05/07 [...] Addendum 05/13/2024 12:40 PM by Christi Sherman, BATTERY PARTS ASSEMBLER - continue to monitor, checking LFTs On [...] 1509 Iman Massey MD Procedures Cosigned by Juyd Mancuso MD at 05/26/2024 6:49 PM EDT [...] and depression COPD (chronic obstructive pulmonary disease) ([facility]) NSTEMI (non-ST elevated myocardial infarction) ([facility]) GERD (gastroesophageal reflux disease) Leukocytosis Hyperlipidemia THOM [...] depression, and tobacco use who presented to [facility] on 05/01/24 with chest pain. Loaded with ASA and Plavix. LHC at OSH performed showed critical distal left main artery stenosis. Also diagnosed with NSTEMI at OSH with elevated troponins of 0.05 to 0.23 to 0.16. Placed on a heparin drip prior to arrival. Transferred to [facility] on 05/01/24 for CABG evaluation by[facility] CT Surgery. Underwent CABG here at on [...] Date Anxiety COPD (chronic obstructive pulmonary disease) ([facility]) 05/01/2024 Continue Duo nebs q6 SPO2 goal >88% Depression GERD (gastroesophageal reflux disease) 05/01/2024 Continue Protonix 40 mg daily On mechanically assisted ventilation (CMS/HCC) 05/06/2024 Arrived to ICU intubated 05/07 extubated to [facility] 05/08 resolved Tobacco use 05/01/2024 Slot Host for smoking 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 Complicates all [...] is no recent study available for direct [id number] comparison. Assessment & Plan: Multivessel CAD s/p CABG Gastric fluid/gas collection - presented to [facility] on 05/01/24 with chest pain. Loaded with ASA and Plavix. - LHC at OSH performed showed critical distal left main artery stenosis. - Also diagnosed with NSTEMI at OSH with elevated troponins of 0.05 to 0.23 to 0.16. - Placed on a heparin drip prior to arrival. Transferred to [facility] on 05/01/24 for CABG evaluation by CT [...] 650 mg, Rectal, q6h PRN, Marybel Suarez, BATTERY PARTS ASSEMBLER, 650mg at 05/19/24 1415 Adult 2-in-1 TPN, 65 mL/hr, Intravenous, Continuous, Maite Austin MD, Last Rate: 65 mL/hr at 05/20/24 0800, Rate Verify at 05/20/24 0800 aspirin suppository 150 mg, 150 mg, Rectal, Daily, Dieudonne Cramer MD, 150 mg at 05/19/24 0907 benzocaine-menthol (Chloraseptic) 6-10 MG lozenge 1 lozenge, 1 lozenge, Mouth/Throat, q4h PRN, Dave Baird P, DO, 1 lozenge at 05/17/24 1624 bisacodyl [...] IVPB, 100 mg, Intravenous, q24h, Marybel Suarez, BATTERY PARTS ASSEMBLER, 100 mg at 05/20/24 0454 nicotine (Nicoderm [...] injection 200 mg, 200 mg, Intravenous, q12h, Miate Austin MD, 200 mg at 05/19/242006 * [...] Jayson Estrada MD PGY-3 General Surgery Pager #[phone] * Progress Notes - Dieudonne Cramer MD [...] Anterior;Right;Upper Arm 05/18/24 0400 Arm 1 NG/OG [place] Sump 14 Fr Right nostril 05/11/24 2300 Right nostril 7 Urethral Catheter Temperature probe 05/17/24 1430 -- 2 Arterial Line 05/17/24 Right Radial 05/17/24 1400 Radial 2 GCS: Dudley Coma Scale Score: 15 Review of Systems [...] main artery stenosis Started on heparin drip BUTCHER'S ASSISTANT, continue CT Surgery consulted CABG work-up pending [...] mg q6 COPD (chronic obstructive pulmonary disease) ([facility]) Yes Overview Addendum 05/12/2024 12:27 PM by Christi Sherman APRN 05/07 Duo nebs q6 SPO2 goal >88% On 4LNC 05/08 on 2LNC 05/09 on 2LNC +40 lasix 05/12 ongoing 3L NSTEMI (non-ST elevated myocardial infarction) ([facility]) Yes Overview Addendum 05/11/2024 10:54 AM by Miguel oDwney MD Diagnosed at OSH with elevated troponins of 0.05 to 0.23 to 0.16 Started on heparin drip BUTCHER'S ASSISTANT, 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 Repeat troponins pending 05/07 [...] Value Units Date/Time Blood Culture (Aerobic/Anaerobet Set) [[id number]] Collected: 05/13/24 0947 Order Status: Completed Specimen: Blood from AC, Right Updated: 05/16/24 1101 Culture No growth at day 3 Vitals: Visit Vitals BP (!) 66/17 Pulse (!) 112 Temp (!) 38.3 ??C (100.9 ??F) (Bladder) Resp (!) 31 Dudley Coma Scale Score: 15 Shaan Scale Score: [...] Weight: 61.1 kg (134 lb 12.8 oz) [place] body weight: 47.8 kg (105 lb 4.8 oz) Adjusted ideal body weight: 52.8 kg (116 lb 5.7 oz) (126.25%) of IBW Body mass index is 25.13 kg/m??. Adjusted wt: 50.9 kg (if over 125% of IBW) CENTRAL IV Access: PICC (05/18/24) Estimated Nutritional Needs: HBE: 1153 Stress Factor: 1.2-1.4 Total Calories/day: 9549-6824 Protein (amino acids): 1.3-1.6 grams/kg Protein (Amino [...] PICC, TPN likely 05/19. Edited by: Marybel Suarez APRN at 05/19/2024 0517 Lines/Drains/Tubes: Patient Lines/Drains/Airways Status Active Active LDAs Name Placement date Placement time Site Days PICC Double Lumen 05/19/24 Left Basilic vein 05/19/24 0050 Basilic vein less than 1 Peripheral IV 05/12/24 Anterior;Left Forearm 05/12/24 0030 Forearm 7 Peripheral IV 05/18/24 Anterior;Right;Upper Arm 05/18/24 0400 Arm 1 NG/OG [place] Sump 14 Fr Right nostril 05/11/24 2300 Right nostril 7 Urethral Catheter Temperature probe 05/17/24 1430 -- 1 Arterial Line 05/17/24 Right Radial 05/17/24 1400 Radial 1 GCS: Jaida Coma Scale Score: 14 Review [...] main artery stenosis Started on heparin drip BUTCHER'S ASSISTANT, continue CT Surgery consulted CABG work-up pending [...] mg q6 COPD (chronic obstructive pulmonary disease) ([facility]) Yes Overview Addendum 05/12/2024 12:27 PM by Christi Sherman APRN 05/07 Duo nebs q6 SPO2 goal >88% On 4LNC 05/08 on 2LNC 05/09 on 2LNC +40 lasix 05/12 ongoing 3L NSTEMI (non-ST elevated myocardial infarction) ([facility]) Yes Overview Addendum 05/11/2024 10:54 AM by Miguel Downey MD Diagnosed at OSH with elevated troponins of 0.05 to 0.23 to 0.16 Started on heparin drip BUTCHER'S ASSISTANT, 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 Repeat troponins pending 05/07 [...] Holt RN Authorized by: Maite Austin MD Mak[place] Protocol: Verbal consent obtained?: Yes Written consent obtained?: Yes Risks and benefits: Risks, benefits and alternatives were discussed Consent given by: Patient and power of transactional attorney (Written Consent obtained by madalyn VAT/PICC [...] Left Location (Adult): Basilic vein (Largest vein, twccbomx-ni-hneo ratio 27%) Site selection rationale: RUE PIV and right radial arterial line. Patient position: Supine Catheter Lot #: [id number] Catheter welding specialist: [employer] Power PICC Provena Catheter placed: Double lumen [...] placed on end of each lumen hub. [place] limb precautionarmband placed on left wrist for [...] 05/18/24 0400 Arm less than 1 NG/OG [place] Sump 14 Fr Right nostril 05/11/24 2300 [...] main artery stenosis Started on heparin drip BUTCHER'S ASSISTANT, continue CT Surgery consulted CABG work-up pending [...] mg q6 COPD (chronic obstructive pulmonary disease) ([facility]) Yes Overview Addendum 05/12/2024 12:27 PM by Christi Sherman APRN 05/07 Duo nebs q6 SPO2 goal >88% On 4LNC 05/08 on 2LNC 05/09 on 2LNC +40 lasix 05/12 ongoing 3L NSTEMI (non-ST elevated myocardial infarction) ([facility]) Yes Overview Addendum 05/11/2024 10:54 AM by Miguel Downey MD Diagnosed at OSH with elevated troponins of 0.05 to 0.23 to 0.16 Started on heparin drip BUTCHER'S ASSISTANT, 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 Repeat troponins pending 05/07 [...] Note Rere Hunter 53 y.o. female CSN: [id number] Room/Bed 216/216A Nutrition evaluation type: follow-up Reason [...] (Calculated): 25.13 Weight Evaluation: Overweight (BMI 25-29.9) [place] Body Weight (kg): 47.7 Percent [place] Body Weight: 126 Adjusted Body Weight (kg): 50.9 Estimated Needs: Metabolic Cart Study Results: Current Nutrition Intake: Diet Order: NPO Diet Texture: (-) Adult Carbohydrate Restriction: (-) Fat Restriction: (-) Percent Meals Eaten (%): (-) Diet Experience and Nutrition History: Diet Education Provided: Will monitor Pertinent home medications: reviewed Sabianism needs: Nutrition Focused Physical Exam: Physical exam [...] Date Anxiety COPD (chronic obstructive pulmonary disease) ([facility]) 05/01/2024 Continue Duo nebs q6 SPO2 goal >88% Depression GERD (gastroesophageal reflux disease) 05/01/2024 Continue Protonix 40 mg daily On mechanically assisted ventilation ([facility]) 05/06/2024 Arrived to ICU intubated 05/07 extubated to 4LNC 05/08 resolved Tobacco use 05/01/2024 Slot Host for smoking 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 Complicates all [...] and depression COPD (chronic obstructive pulmonary disease) ([facility]) NSTEMI (non-ST elevated myocardial infarction) ([facility]) GERD (gastroesophageal reflux disease) Leukocytosis Hyperlipidemia THOM [...] Rere Hunter Date of : 1970 Room: [address] [place], [place] [address] Referring provider: Maite Austin MD Reason for [...] Kinsey MD Gastroenterology and Hepatology PGY-5 Secure [phone] [1] Past Medical History: Diagnosis Date Anxiety COPD (chronic obstructive pulmonary disease) (CMS/HCC) 05/01/2024 Continue Duo nebs q6 SPO2 goal >88% Depression GERD (gastroesophageal reflux disease) 05/01/2024 Continue Protonix 40 mg daily On mechanically assisted ventilation (CMS/HCC) 05/06/2024 Arrived to ICU intubated 05/07 extubated to 4LNC 05/08 resolved Tobacco use 05/01/2024 Slot Host for smoking 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 Complicates all [...] mg, 81 mg, Rectal, Daily, Marybel Suarez, ARASH benzocaine-menthol (Chloraseptic) 6-10 MG lozenge 1 lozenge, [...] mg, Intramuscular, q15 min PRN, Marybel Suarez, BATTERY PARTS ASSEMBLER heparin (porcine) injection 5,000 Units, 5,000 Units, Subcutaneous, q8h, Sundeep Newsome MD, 5,000 Units at 05/18/24 0343 ipratropium-albuterol (Duo-Neb) 0.5-2.5 mg/3 mL nebulizer solution 3 mL, 3 mL, Nebulization, q6h PRN, Trinity Yousif, BATTERY PARTS ASSEMBLER, 3 mL at 05/17/24 1551 micafungin (Mycamine) 100 mg in sodium chloride 0.9 % 100 mL IVPB, 100 mg, Intravenous, q24h, Marybel Suarez, BATTERY PARTS ASSEMBLER, 100 mg at 05/18/24 0643 nicotine (Nicoderm CQ) 14 MG/24HR patch 1 patch, 1 patch, Transdermal, Daily PRN, Arpan Hull MD nicotine polacrilex (Commit) lozenge 2 mg, 2 mg, Mouth/Throat, q2h PRN, Abran Hull MD nystatin (Mycostatin) 200366 UNIT/ML suspension 400,000 Units, 4 mL, Swish & Swallow, 4x daily,Cydney Luu MD, 400,000 Units at 05/17/24 2100 pantoprazole (Protonix) injection 40 mg, 40 mg, Intravenous, Daily, Trinity Yousif, BATTERY PARTS ASSEMBLER, 40 mg at 05/17/24 1031 phenol (Chloraseptic) [...] mg, 25 mg, Rectal, q6h PRN, Trinity Yousif, BATTERY PARTS ASSEMBLER Cosigned by Ivan Marino MD at 05/18/2024 10:18 AM EDT Associated attestation - Ivan Marino MD - 05/18/2024 10:18 AM EDT I saw and evaluated the patient. I discussed the case with the resident/fellow and agree with the findings and plan as documented. * Progress Notes - Iman Massey MD - 05/18/2024 7:31 AM EDT Surgical ICU Daily Progress Note 05/18/24 Rere Hunter HPI 53F with history of HTN, HLD, COPD, GERD, tobacco use, and CAD s/p 4v CABG on 05/06. SGE consulted for post-operative ileus. Interval: febrile. RLQ abdominal pain. CT showed intraabdominal fluid adjacent to stomach concerning for possible perforation. Edited by: Iman Massey MD at 05/18/2024 0739 Relevant review of systems was obtained as [...] main artery stenosis Started on heparin drip BUTCHER'S ASSISTANT, continue CT Surgery consulted CABG work-up pending [...] ongoing 3L NSTEMI (non-ST elevated myocardial infarction) ([facility]) Yes Overview Addendum 05/11/2024 10:54 AM by Miguel Downey MD Diagnosed at OSH with elevated troponins of 0.05 to 0.23 to 0.16 Started on heparin drip BUTCHER'S ASSISTANT, 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 Repeat troponins pending 05/07 [...] No Overview Addendum 05/11/2024 10:55 AM by iMguel Downey MD Diuresis as clinically indicated 05/07 [...] plan as documented. Tere Snow MD, FACS family services worker Trauma Acute Care Surgery * Significant Event - Vicky Arciniega MD - 05/18/2024 4:50 AM EDT Paged by primary team to review CTAP. Imaging is concerning for focal gastric perforation with [id number] abscess. Patient has been febrile for several [...] Vicky Arciniega MD General Surgery PGY2 Pager: [phone] * H&P - Dieudonne Cramer MD - [...] Anterior;Left;Proximal Forearm 05/12/24 0840 Forearm 5 NG/OG [place] Sump 14 Fr Right nostril 05/11/24 2300 [...] Date Anxiety COPD (chronic obstructive pulmonary disease) ([facility]) 05/01/2024 Depression GERD (gastroesophageal reflux disease) 05/01/2024 On mechanically assisted ventilation ([facility]) 05/06/2024 Tobacco use 05/01/2024 Tremor 05/01/2024 Past Surgical History: Surgical History[1] Home Medications: Prior to Admission medications Medication Sig Start Date End Date Taking? Authorizing Provider buPROPion XL (Wellbutrin XL) 300 MG 24 hr tablet take 1 tablet by mouth every 24 hours 3/7/25 Yes Jaden Correa MD citalopram (CeleXA) 40 [...] main artery stenosis Started on heparin drip BUTCHER'S ASSISTANT, continue CT Surgery consulted CABG work-up pending [...] 0.23 to 0.16 Started on heparin drip BUTCHER'S ASSISTANT, 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 Repeat troponins pending 05/07 [...] main artery stenosis Started on heparin drip BUTCHER'S ASSISTANT, continue CT Surgery consulted CABG work-up pending [...] mg q6 COPD (chronic obstructive pulmonary disease) ([facility]) Yes Overview Addendum 05/12/2024 12:27 PM by Christi Sherman APRN 05/07 Duo nebs q6 SPO2 goal >88% On 4LNC 05/08 on 2LNC 05/09 on 2LNC +40 lasix 05/12 ongoing 3L NSTEMI (non-ST elevated myocardial infarction) ([facility]) Yes Overview Addendum 05/11/2024 10:54 AM by Miguel Downey MD Diagnosed at OSH with elevated troponins of 0.05 to 0.23 to 0.16 Started on heparin drip BUTCHER'S ASSISTANT, 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 Repeat troponins pending 05/07 [...] Signed 05/13/2024 12:38 PM by Christi Sherman BATTERY PARTS ASSEMBLER trending Hyperlipidemia Yes THOM (obstructive sleep apnea) Yes Overview Addendum 05/09/2024 11:15 AM by Miguel Downey MD 05/07 pt declines home CPAP use 05/08 on 2lNC 05/09 96% on 2lNC S/P CABG x 4 Not Applicable Overview Addendum 05/12/2024 12:26 PM by Christi Sherman BATTERY PARTS ASSEMBLER 05/06 w/Reda 4 chest tubes (mediastinal x2, [...] with the patient, her family and the [facility] faculty Tere Snow MD, FACS family services worker Trauma Acute Care Surgery * Consults - Rhona Abrams RN - 05/17/2024 2:15 PM EDTAssociated Order(s): IP CONSULT TO ADULT VASCULAR ACCESS TEAM Dulce Alamo IN HOME SALES REPRESENTATIVE reached out to VAT due to pt transfer to ICU. IN HOME SALES REPRESENTATIVE states to hold on piccline due to fever and blood cxs redrawn. VAT asked IN HOME SALES REPRESENTATIVE to reorder when appropriate. * Clinician Note [...] EDT Pt noted to be EMV 14. Rn Ernestina reports that pt continues to have confusion to place/time. Vat attempted home number, , which is disconnected and daughter Janeth, at [phone]. Left voicemail. Vat will continue to attempt to reach family for consent. Cally IN HOME SALES REPRESENTATIVE aware, picc on hold pending consent. * [...] Value Units Date/Time Blood Culture (Aerobic/Anaerobet Set) [[id number]] Collected: 05/13/24 0947 Order Status: Completed Specimen: Blood from AC, Right Updated: 05/16/24 1101 Culture No growth at day 3 Vitals: Visit Vitals BP 126/62 (BP Location: Right arm, Patient Position: Lying) Pulse 110 Temp 36.8 ??C (98.2 ??F) (Oral) Resp 23 Dudley Coma Scale Score: 14 Shaan Scale Score: [...] Weight: 61.1 kg (134 lb 12.8 oz) [place] body weight: 47.8 kg (105 lb 4.8 oz) Adjusted ideal body weight: 52.8 kg (116 lb 5.7 oz) (126.25%) of IBW Body mass index is 25.13 kg/m??. Adjusted wt: 50.9 kg (if over 125% of IBW) CENTRAL IV Access: Pending Estimated Nutritional Needs: HBE: 1153 Stress Factor: 1.2-1.4 Total Calories/day: 6228-7918 Protein (amino acids): 1.3-1.6 grams/kg Protein (Amino [...] with the IV room. Thank you, Db Kline PharmD Candidate 2024 Preceptor - Moni Méndez PharmD [...] Note Rere Hunter 53 y.o. female CSN: [id number] Admission: 05/01/2024 11:01 PM Primary Problem: CAD, [...] more detail. Pt has been referred to [facility]; liaison Prema following. No further SW concerns identified at this time. SW will monitor pt's progress and will follow up with DC planning and needs as appropriate. NAYA Albarran * Progress Notes - Dulce Alamo, BATTERY PARTS ASSEMBLER - 05/17/2024 9:15 AM EDT CVT Progress [...] COPD, and tobacco abuse.She initially presented to [facility], ruled in for NSTEMI, and underwent [...] atorvastatin and beta-stacey - Imaging uploaded to [employer] system and reviewed with Dr. Chery - [...] Statin COPD (POA) - PFTs completed - Duonebs Anxiety (POA) Depression (POA) - Continue home [...] to ICU per Dr. Austin Cardiothoracic Surgery [phone] * Significant Event - mIan Massey MD - 05/16/2024 6:35 PM EDT [...] PM EDT Adult Nutrition Evaluation Note Rere Hutner 53 y.o. female CSN: [id number] Room/Bed 135/135A Nutrition evaluation type: follow-up Reason [...] (Room air) O2 Delivery Method: Nasal cannula Dudley Coma Scale Score: 15 Shaan Scale Score: [...] (Calculated): 25.13 Weight Evaluation: Overweight (BMI 25-29.9) [place] Body Weight (kg): 47.7 Percent [place] Body Weight: 126 Adjusted Body Weight (kg): 50.9 Estimated Needs: Metabolic Cart Study Results: Current Nutrition Intake: Diet Order: NPO Diet Texture: (-) Adult Carbohydrate Restriction: (-) Fat Restriction: (-) Percent Meals Eaten (%): (-) Diet Experience and Nutrition History: Diet Education Provided: Will monitor Pertinent home medications: reviewed Sabianism needs: Nutrition Focused Physical Exam: Physical exam [...] Date Anxiety COPD (chronic obstructive pulmonary disease) ([facility]) 05/01/2024 Continue Duo nebs q6 SPO2 goal >88% Depression GERD (gastroesophageal reflux disease) 05/01/2024 Continue Protonix 40 mg daily On mechanically assisted ventilation ([facility]) 05/06/2024 Arrived to ICU intubated 05/07 extubated to 4LNC 05/08 resolved Tobacco use 05/01/2024 Slot Host for smoking 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 Complicates all [...] Lab Units 05/16/24 0320 05/15/24 0113 05/14/24 033 WBC 10*3/uL 20.02* 28.49* 35.22* HEMOGLOBIN g/dL 8.8* 8.9* 7.2* HEMATOCRIT % 27.6* 26.5* 22.0* PLATELETS 10*3/uL 480* 402* 352 INR ??, PTT ??, Anti-Xa ?? Ca 7.4 (L) iCa ?? Mg 2.0, Phos ?? Lactate ?? Results from last 7 days Lab Units 05/16/24 0320 05/15/24 0113 05/14/24 0335 05/13/24 0554 SODIUM mmol/L 144 145 141 -- [...] cyanosis or clubbing. Pedal pulses palpable +2. [facility] site CDI GI: distended. Rare bowel sounds SKIN: [place], warm, and dry. No rash, sores, or [...] HLP - Atorvastatin 80 mg Hypokalemia - /: 60 mEq ordered today, recheck K at [...] Chloraseptic spray for throat pain Cardiothoracic Surgery [phone] * Significant Event - Tere Snow MD - 05/15/2024 10:00 PM EDT Pt feels better today. Having bowel function Abd: soft, no significant distention Ok for clamp trial SGE will follow for resuming of diet Tere Snow MD, FACS family services worker Trauma Acute Care Surgery * Progress Notes - Heather Ram - 05/15/2024 12:47 PM EDT Case Management Adult Progress Note Rere Hunter 53 y.o. female CSN: [id number] Admission: 05/01/2024 11:01 PM Primary Problem: CAD, [...] Pt amenable to SW sending referral to [facility] and is agreeable to taking dayana bustamante. SW sent referral to [facility], liafrank Lloyd is following. No further [...] ?? Natural and processed cheeses such as Mauritanian, blue, mozzarella, and [place] Meat and protein substitutes Special instructions: ?? [...] ?? Oat meal ?? Whole wheat ?? [place] ?? Pumpernickel ?? White ?? Raisin ?? Crackers prepared without butter, lard, coconut, or palm oil ?? Dry cereals that contain allowed fats ?? Rice and pasta prepared with allowed fats ?? Egg noodles (limit to ?? cup per day) ?? Turkish ?? Japanese ?? Mauritanian muffins ?? Pancakes, waffles, biscuits, and cornbread made with allowed ingredients ?? Flat bread ?? Bal crackers ?? Matzoh crackers ?? Whole grain or enriched cereals prepared with allowed oils ?? Wheat germ Avoid: ?? Egg or cheese bread ?? Butter rolls ?? Commercially prepared products: biscuits, muffins, sweet rolls, cornbread, pancakes and waffles,mauritian toast, croissants ?? Noodles ?? Cheese crackers ?? Flavored crackers prepared with saturated fats ?? Any cereal prepared with saturated fat ?? Uzbek noodles ?? Rice and pasta prepared with eggs, cream, or high fat cheese Fruits Choose: ?? Any fresh, frozen, canned, or dried fruit or juice ?? Avocado Vegetables Choose: ?? Any fresh, frozen, or canned vegetables ?? Potatoes prepared with allowed fat ?? Olives (limit to 10 small or 5 large per day) Avoid: ?? Buttered, creamed, or fried vegetables ?? Lpvj-a-ifqan, commercially made ?? Vegetables prepared in a [...] sizes are listed below: ?? Nuts: The [place] [employer] recommends including 5 servings of [...] avocado oil, etc.: 1 tablespoon o The [place] [employer] Association recommends limiting oils to 3 [...] ingredients ?? Sorbet ?? Ice milk ?? [place] ?? Gum drops ?? Jelly beans ?? [...] saturated fats, cheese, and/or egg yolks ?? [place] chips ?? Potato chips and other snack [...] much from the food you eat. Use Beamly to Help Build Your Meals The [employer] can help you plan and track your meals and activity. You can look up individual foods to see or compare their nutritional value. You can get guidelines for what and how much you should eat. You can compare your food choices. And you can assess personal physical activities and see ways you can improve. Go to www.Sidecar.gov/Xcerioncker/. Eating Heart-Healthy Food: Using the DASH Plan [...] from the original note were not included. 42297 Recovery From Heart Surgery: The First Few [...] stop Last Reviewed Date: 2024 00:00:00 ?? [id number] [employer]. All rights reserved. This information is not intended as a substitute for professional medical care. Always follow your healthcare professional's instructions. * Can Abi - Brooklyn Duron RN - 05/15/2024 10:45 AM EDT Images from the original note were not included. 71214 Eating Heart-Healthy Foods Eating has a big [...] darion. Last Reviewed Date: 2022 00:00:00 ?? [id number] [employer]. All rights reserved. This information is not intended as a substitute for professional medical care. Always follow your healthcare professional's instructions. * Can KelleyJAMISON - Brooklyn Duron RN - 05/15/2024 10:45 [...] from the original note were not included. 91531 After Bypass Surgery: Getting Up and Out [...] do. Last Reviewed Date: 2024 00:00:00 ?? [id number] [employer]. All rights reserved. This information is not intended as a substitute for professional medical care. Always follow your healthcare professional's instructions. * Can DelgadoJAMISON - Brooklyn Duron RN - 05/15/2024 10:45 AM EDT Images from the original note were not included. 88133 After Bypass Surgery: Reaching, Bending, and Lifting [...] your shoulders and hips in line. ?? tool machine setup operator the object and hold it close to [...] directions. Last Reviewed Date: 2024 00:00:00 ?? [id number] [employer]. All rights reserved. This information is not [...] of the [facility] near [facility] for a chest x-ray. Then go [...] your incisions. Do NOT lift, push or pulling machine operator 5 pounds for six weeks. Do NOT [...] or concerns, please contact??? Brooklyn Duron RN [phone] Tuesday through Tuesday 7am- 3:30pm [facility] [phone] after 3:30 pm, weekends and holidays - ask for the CT surgeon web content coordinator. * Progress Notes - Pari Lindo PTA - 05/15/2024 9:18 AM EDT Physical Therapy Treatment Patient Name: Rere Hunter Today's Date: 05/15/2024 PT Discharge Recommendations: Acute rehab Equipment Recommended: Defer to facility Subjective The patient states, I am tired this morning. Participants in Care Family/Caregiver Present: No Dynamite Cartridge Crimper: Not Applicable Presentation Oxygen: None (Room air) Telemetry: Yes Lines and Tube: NG/OG [place] Sump 14 Fr Right nostril (Active) Peripheral [...] Transfer Exam: Sit to stand Level of [place]: Contact guard Physical/Nonphysical Assist: Verbal Cues, Set-up required Assistive Device: Rollator Transfer Exam: Stand to Sit Level of [place]: Contact guard Physical/Nonphysical Assist: Verbal Cues, Set-up required Assistive Device: Rollator Toilet Transfer Level of [place]: Minimum assist (75% patient's effort) Physical/Nonphysical Assist: [...] (Room air) Lines and Tubes: Telemetry NG/OG [place] Sump 14 Fr Right nostril (Active) Peripheral [...] Mobility Exam: Supine to Sit Level of [place]: Moderate assist (50% patient's effort) Physical/Nonphysical Assist: Verbal Cues, Nonverbal cues (demo/gestures), Moderate cues, HOB elevated Transfers Transfer Exam: Sit to stand Level of [place]: Contact guard Physical/Nonphysical Assist: Nonverbal cues (demo/gestures), Verbal Cues, Minimal cues Assistive Device: Rollator Transfer Exam: Stand to Sit Level of [place]: Contact guard Physical/Nonphysical Assist: Nonverbal cues (demo/gestures), [...] Anterior;Left;Proximal Forearm 05/12/24 0840 Forearm 2 NG/OG [place] Sump 14 Fr Right nostril 05/11/24 2300 Right nostril 2 GCS: Jaida Coma Scale Score: 15 [...] main artery stenosis Started on heparin drip BUTCHER'S ASSISTANT, continue CT Surgery consulted CABG work-up pending [...] 0.23 to 0.16 Started on heparin drip BUTCHER'S ASSISTANT, 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 Repeat troponins pending 05/07 [...] 1900 - 05/14/24 0659 05/14/24 0700 - 03/31/25 1350 Requested LDAs do not have output [...] monitor bowel function Tere Snow MD, FACS family services worker Trauma Acute Care Surgery * Progress Notes - Heather Ram - 05/14/2024 8:48 AM EDT Case Management Adult Progress Note Rere Hunter 53 y.o. female CSN: [id number] Admission: 05/01/2024 11:01 PM Primary Problem: CAD, [...] 75 mL/hr, Last Rate: 75 mL/hr (05/13/24 2133) Visit Vitals BP 131/75 Pulse (!) 122 [...] swish and swallow. Edited by: Christi Sherman, BATTERY PARTS ASSEMBLER at 05/13/2024 1232 Lines/Drains/Tubes: Patient Lines/Drains/Airways Status Active Active LDAs Name Placement date Placement time Site Days Peripheral IV 05/12/24 Anterior;Left Forearm 05/12/24 0030 Forearm 1 Peripheral IV 05/12/24 Anterior;Left;Proximal Forearm 05/12/24 0840 Forearm 1 Peripheral IV 05/12/24 Anterior;Proximal;Right Forearm 05/12/24 1600 Forearm less than 1 NG/OG [place] Sump 14 Fr Right nostril 05/11/24 2300 Right nostril 1 GCS: Dudley Coma Scale Score: 15 Review of Systems [...] Addendum 05/12/2024 12:26 PM by Christi Sherman, BATTERY PARTS ASSEMBLER Patient presented to OSH on 05/01/24 c/o chest pain Loaded with ASA & Plavix, continue LHC on 05/01/24 showed critical distal left main artery stenosis Started on heparin drip BUTCHER'S ASSISTANT, continue CT Surgery consulted CABG work-up pending [...] last night COPD (chronic obstructive pulmonary disease) ([facility]) Yes Overview Addendum 05/12/2024 12:27 PM by Christi Sherman, BATTERY PARTS ASSEMBLER 05/07 Duo nebs q6 SPO2 goal >88% On 4LNC 05/08 on 2LNC 05/09 on 2LNC +40 lasix 05/12 ongoing 3L NSTEMI (non-ST elevated myocardial infarction) (CMS/HCC) Yes Overview Addendum 05/11/2024 10:54 AM by Miguel Downey MD Diagnosed at OSH with elevated troponins of 0.05 to 0.23 to 0.16 Started on heparin drip BUTCHER'S ASSISTANT, 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 Repeat troponins pending 05/07 [...] seen and examined with resident physicians and [facility]. Morning chest x- ray reviewed. Labs [...] Jayson Estrada MD PGY-3 General Surgery Pager #[phone] Cosigned by Rebel Ayala MD at 05/13/2024 [...] from the original note were not included. [facility] Department of Surgery Division of Acute Care [...] assistance is needed please page us at [phone]. Medical Problems Problem List * (Principal) CAD, multiple vessel Overview Addendum 05/12/2024 12:26 PM by Christi Sherman, ARASH Patient presented to OSH on 05/01/24 c/o chest pain Loaded with ASA & Plavix, continue LHC on 05/01/24 showed critical distal left main artery stenosis Started on heparin drip BUTCHER'S ASSISTANT, continue CT Surgery consulted CABG work-up pending [...] last night COPD (chronic obstructive pulmonary disease) ([facility]/HCC) Overview Addendum 05/12/2024 12:27 PM by Christi Sherman APRN 05/07 Duo nebs q6 SPO2 goal >88% On 4LNC 05/08 on 2LNC 05/09 on 2LNC +40 lasix 05/12 ongoing 3L NSTEMI (non-ST elevated myocardial infarction) ([facility]) Overview Addendum 05/11/2024 10:54 AM by Miguel Downey MD Diagnosed at OSH with elevated troponins of 0.05 to 0.23 to 0.16 Started on heparin drip BUTCHER'S ASSISTANT, 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 Repeat troponins pending 05/07 [...] Hypertension Overview Addendum 05/09/2024 10:56 AM by Ryena Mcdonald APRN Requiring nitroglycerin gtt upon arrival [...] Addendum 05/12/2024 12:21 PM by Christi Sherman BATTERY PARTS ASSEMBLER - post Reglan/ Simethicone for gastric bubble [...] Date Anxiety COPD (chronic obstructive pulmonary disease) ([facility]) 05/01/2024 Continue Duo nebs q6 SPO2 goal >88% Depression GERD (gastroesophageal reflux disease) 05/01/2024 Continue Protonix 40 mg daily On mechanically assisted ventilation ([facility]) 05/06/2024 Arrived to ICU intubated 05/07 extubated to 4LNC 05/08 resolved Tobacco use 05/01/2024 Slot Host for smoking 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 Complicates all [...] NPO until eval complete. Edited by: Christi Sherman, ARASH at 05/12/2024 1218 Lines/Drains/Tubes: Patient Lines/Drains/Airways Status Active Active LDAs Name Placement date Placement time Site Days Peripheral IV 05/12/24 Anterior;Left Forearm 05/12/24 0030 Forearm less than 1 Peripheral IV 05/12/24 Anterior;Left;Proximal Forearm 05/12/24 0840 Forearm less than 1 NG/OG [place] Sump 14 Fr Right nostril 05/11/24 2300 Right nostril less than 1 Negative Pressure Wound Therapy Sternum 05/06/24 1940 Sternum 5 GCS: Dudley Coma Scale Score: 15 Review of Systems [...] main artery stenosis Started on heparin drip BUTCHER'S ASSISTANT, continue CT Surgery consulted CABG work-up pending [...] last night COPD (chronic obstructive pulmonary disease) ([facility]) Yes Overview Addendum 05/12/2024 12:27 PM by Christi Sherman APRN 05/07 Duo nebs q6 SPO2 goal >88% On 4LNC 05/08 on 2LNC 05/09 on 2LNC +40 lasix 05/12 ongoing 3L NSTEMI (non-ST elevated myocardial infarction) (CMS/HCC) Yes Overview Addendum 05/11/2024 10:54 AM by Miguel Downey MD Diagnosed at OSH with elevated troponins of 0.05 to 0.23 to 0.16 Started on heparin drip BUTCHER'S ASSISTANT, 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 Repeat troponins pending 05/07 [...] MD - 05/12/2024 9:55 AM EDT Rere Nancy Hunter Patient was seen and examined with resident physicians and [facility]. Morning chest x- ray reviewed. Labs [...] * Consults - Gretchen Brothers, RD - 05/11/2024 4:15 PM EDT Adult Nutrition Evaluation Note Rere Hunter 53 y.o. female CSN: [id number] Room/Bed 217/217A Nutrition evaluation type: follow-up Reason [...] (Calculated): 26.3 Weight Evaluation: Overweight (BMI 25-29.9) [place] Body Weight (kg): 47.7 Percent [place] Body Weight: 132 Adjusted Body Weight (kg): 52 Estimated Needs: Metabolic Cart Study Results: Current Nutrition Intake: Diet Order: Adult Diet Diet Texture: Clear liquid Adult Carbohydrate Restriction: Consistent CHO 2 ([id number] [place], 80 g/meal) Fat Restriction: Cardiac Percent Meals Eaten (%): 0% 05/07-05/10 Diet Experience and Nutrition History: Diet Education Provided: Will monitor Pertinent home medications: reviewed Sabianism needs: Nutrition Focused Physical Exam: Physical exam [...] weight throughout hospital admission Acuity Level: [address], LD [1] Past Medical History: Diagnosis Date Anxiety COPD (chronic obstructive pulmonary disease) ([facility]) 05/01/2024 Continue Duo nebs q6 SPO2 goal >88% Depression GERD (gastroesophageal reflux disease) 05/01/2024 Continue Protonix 40 mg daily On mechanically assisted ventilation ([facility]) 05/06/2024 Arrived to ICU intubated 05/07 extubated to [facility] 05/08 resolved Tobacco use 05/01/2024 Slot Host for smoking 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 Complicates all [...] hospital. Participants in Care Family/Caregiver Present: No Dynamite Cartridge Crimper: Not Applicable Presentation Oxygen Therapy: Supplemental oxygen O2 Delivery Method: Nasal cannula O2 Flow Rate (L/min): 3 L/min Lines and Tubes: Telemetry Pacer Wires (Active) NG/OG [place] Sump Nasogastric 14 Fr Right nostril (Active) [...] Mobility Exam: Sit to Supine Level of [place]: Moderate assist (50% patient's effort) Physical/Nonphysical Assist: HOB elevated, Nonverbal cues (demo/gestures), Verbal Cues, Moderate cues, Additional assist utilized for safety Transfers Transfer Exam: Sit to stand Level of [place]: Contact guard Physical/Nonphysical Assist: Nonverbal cues (demo/gestures), Verbal Cues, Minimal cues Assistive Device: Rollator Transfer Exam: Stand to Sit Level of [place]: Contact guard Physical/Nonphysical Assist: Nonverbal cues (demo/gestures), Verbal Cues, Minimal cues Assistive Device: Rollator Toilet Transfer Level of [place]: Minimum assist (75% patient's effort) Physical/Nonphysical Assist: [...] 1:23 PM. * Progress Notes - Pari Lindo, BUTCHER'S ASSISTANT - 05/11/2024 11:02 AM EDT Physical Therapy Treatment Patient Name: Rere Hunter Today's Date: 05/11/2024 PT Discharge Recommendations: Acute rehab Equipment Recommended: Defer to facility Subjective The patient states, I am so tired. Participants in Care Family/Caregiver Present: No Dynamite Cartridge Crimper: Not Applicable Presentation Oxygen: Supplemental oxygen Nasal cannula 3 L/min Telemetry: Yes Lines and Tube: Pacer Wires (Active) NG/OG [place] Sump Nasogastric 14 Fr Right nostril (Active) [...] sequencing. Bed Mobility Exam: Scooting/Bridging Level of [place]: Dependent (to scoot to head of bed) Physical/Nonphysical Assist: Additional assist utilized for safety, Verbal Cues, Set-up required Assistive Device: Other (draw sheet) Bed Mobility Exam: Sit to Supine Level of [place]: Moderate assist (50% patient's effort) Physical/Nonphysical Assist: Additional assist utilized for safety, Verbal Cues, Set-up required Transfers Transfer Intervention: Verbal cues provided for correct bilateral hand and foot placement during sit to stand transfers. Transfer Exam: Sit to stand Level of [place]: Contact guard Physical/Nonphysical Assist: Verbal Cues, Set-up required Assistive Device: Rollator Transfer Exam: Stand to Sit Level of [place]: Contact guard Physical/Nonphysical Assist: Verbal Cues, Set-up required Assistive Device: Rollator Toilet Transfer Level of [place]: Minimum assist (75% patient's effort) Physical/Nonphysical Assist: [...] Right;Upper Arm 05/09/24 1011 Arm 2 NG/OG [place] Sump Nasogastric 14 Fr Right nostril 05/09/24 [...] Right;Upper Arm 05/09/24 1011 Arm 1 NG/OG [place] Sump Nasogastric 14 Fr Right nostril 05/09/24 1519 Right nostril less than 1 Y Chest Tube 1 and 2 Right Mediastinal 32 Fr. Left Mediastinal 32 Fr. 05/06/241920 -- 3 Y Chest Tube 3 and 4 Pleural 32 Fr. Pleural 32 Fr. 05/06/242130 -- 3 Negative Pressure Wound Therapy Sternum 05/06/240 Sternum 3 ROS: GCS: Dudley Coma Scale Score: 14 Review of Systems [...] Per this written report. Drafted by Camila Brath MD on 05/09/2024 5:25 PM Final report [...] main artery stenosis Started on heparin drip BUTCHER'S ASSISTANT, continue CT Surgery consulted CABG work-up pending [...] last night COPD (chronic obstructive pulmonary disease) ([facility]) Yes Overview Addendum 05/11/2024 10:53 AM by Miguel Downey MD 05/07 Duo nebs q6 SPO2 goal >88% On 4LNC 05/08 on 2LNC 05/09 on 2LNC +40 lasix 05/10 3lNC 05/11 3lNC CXR reviewed NSTEMI (non-ST elevated myocardial infarction) ([facility]) Yes Overview Addendum 05/11/2024 10:54 AM by Miguel Downey MD Diagnosed at OSH with elevated troponins of 0.05 to 0.23 to 0.16 Started on heparin drip BUTCHER'S ASSISTANT, 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 Repeat troponins pending 05/07 [...] Right;Upper Arm 05/09/24 1011 Arm 1 NG/OG [place] Sump Nasogastric 14 Fr Right nostril 05/09/24 1519 Right nostril less than 1 Y Chest Tube 1 and 2 Right Mediastinal 32 Fr. Left Mediastinal 32 Fr. 05/06/241920 -- 3 Y Chest Tube 3 and 4 Pleural 32 Fr. Pleural 32 Fr. 05/06/242130 -- 3 Negative Pressure Wound Therapy Sternum 05/06/24 1940 Sternum 3 ROS: GCS: Jaida Coma Scale Score: 14 [...] main artery stenosis Started on heparin drip BUTCHER'S ASSISTANT, continue CT Surgery consulted CABG work-up pending [...] sleeping well COPD (chronic obstructive pulmonary disease) ([facility]) Yes Overview Addendum 05/10/2024 12:59 PM by Miguel Downey MD 05/07 Duo nebs q6 SPO2 goal >88% On 4LNC 05/08 on 2LNC 05/09 on 2LNC +40 lasix 05/10 3lNC NSTEMI (non-ST elevated myocardial infarction) ([facility]) Yes Overview Addendum 05/10/2024 12:59 PM by Miguel Downey MD Diagnosed at OSH with elevated troponins of 0.05 to 0.23 to 0.16 Started on heparin drip BUTCHER'S ASSISTANT, 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 Repeat troponins pending 05/07 [...] Overview Addendum 05/09/2024 11:15 AM by Miguel Downye MD 05/07 pt declines home CPAP use [...] Overview Addendum 05/09/2024 11:16 AM by Miguel Doweny MD Intro op max 7.3 Received dextrose, [...] documented. * Progress Notes - Divina Yousif R - 05/10/2024 10:37 AM EDT Physical Therapy [...] and Tubes: Telemetry Pacer Wires (Active) NG/OG [place] Sump Nasogastric 14 Fr Right nostril (Active) [...] Transfer Exam: Sit to stand Level of [place]: Minimum assist (75% patient's effort) (x3 reps) Physical/Nonphysical Assist: Verbal Cues, Nonverbal cues (demo/gestures) Transfer Exam: Stand to Sit Level of [place]: Minimum assist (75% patient's effort) Physical/Nonphysical Assist: Verbal Cues, Nonverbal cues (demo/gestures) Transfer Exam: Bed to Chair/Chair to Bed Level of [place]: Minimum assist (75% patient's effort) Physical/Nonphysical Assist: [...] Note Rere Hunter 53 y.o. female CSN: [id number] Admission: 05/01/2024 11:01 PM Primary Problem: CAD, [...] and Tubes: Telemetry Pacer Wires (Active) NG/OG [place] Sump Nasogastric 14 Fr Right nostril (Active) [...] EDT Physical Therapy Treatment Patient Name: Rere Huntre Today's Date: 05/09/2024 PT Discharge Recommendations: Acute rehab Equipment Recommended: Defer to facility Subjective I think I'm at home in [place]. Pt and RN agreeable to PT treatment session this date. Participants in Care Family/Caregiver Present: No Dynamite Cartridge Crimper: Not Applicable Presentation Oxygen Therapy: Supplemental oxygen [...] Mobility Bed Mobility Exam: Rolling/Turning Level of [place]: Moderate assist (50% patient effort) Physical/Nonphysical Assist: Verbal Cues, Nonverbal cues (demo/gestures), Additional assist utilized for safety, Moderate cues Bed Mobility Exam: Scooting/Bridging Level of [place]: Maximum assist (25% patient's effort) Physical/Nonphysical Assist: Verbal Cues, Minimal cues, Additional assist utilized for safety Bed Mobility Exam: Supine to Sit Level of [place]: Moderate assist (50% patient's effort) Physical/Nonphysical Assist: Verbal Cues, Nonverbal cues (demo/gestures), Moderate cues, HOB elevated Transfers Transfer Exam: Sit to stand Level of [place]: Minimum assist (75% patient's effort) Physical/Nonphysical Assist: Verbal Cues, Moderate cues, Additional assist utilized for safety, Nonverbal cues (demo/gestures) Assistive Device: Hand held assist Transfer Exam: Stand to Sit Level of [place]: Minimum assist (75% patient's effort) Physical/Nonphysical Assist: Verbal Cues, Additional assist utilized for safety, Moderate cues, Nonverbal cues (demo/gestures) Assistive Device: Hand held assist Transfer Exam: Bed to Chair/Chair to Bed Level of [place]: Minimum assist (75% patient's effort) Physical/Nonphysical Assist: [...] main artery stenosis Started on heparin drip BUTCHER'S ASSISTANT, continue CT Surgery consulted CABG work-up pending [...] well overnight COPD (chronic obstructive pulmonary disease) ([facility]) Yes Overview Addendum 05/09/2024 11:13 AM by Miguel Downey MD 05/07 Duo nebs q6 SPO2 goal >88% On 4LNC 05/08 on 2LNC 05/09 on 2LNC +40 lasix NSTEMI (non-ST elevated myocardial infarction) ([facility]) Yes Overview Addendum 05/09/2024 11:14 AM by Miguel Downey MD Diagnosed at OSH with elevated troponins of 0.05 to 0.23 to 0.16 Started on heparin drip BUTCHER'S ASSISTANT, 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 Repeat troponins pending 05/07 [...] and depression COPD (chronic obstructive pulmonary disease) ([facility]) NSTEMI (non-ST elevated myocardial infarction) ([facility]) GERD (gastroesophageal reflux disease) Prolonged Q-T interval on ECG Hypercholesteremia Hypoalphalipoproteinemia Overweight THOM (obstructive sleep apnea) S/P CABG x 4 On mechanically assisted ventilation ([facility]) Low cardiac output syndrome ([facility]/HCC) Hypertension Hyperkalemia Cardiac volume overload 53 [...] asked about her family and her home. Airframe Technical Officer provided pastoral support. * Progress Notes - [...] 1 VIEW COMPARISON: 05/07/2024 FINDINGS: Interval extubation. [place]-Ellis catheter has been removed. Right IJ introducer [...] main artery stenosis Started on heparin drip BUTCHER'S ASSISTANT, continue CT Surgery consulted CABG work-up pending 05/07 POD 1 4vCABG 05/[address] recs ASA BB statin Anxiety and depression Yes Overview Addendum 05/08/2024 1:29 PM by Miguel Downey MD 05/07 Continue home bupropion XL 300 mg daily Continue home citalopram 40 mg daily Continue PRN hydroxyzine 25 mg q6 05/08 continue home meds COPD (chronic obstructive pulmonary disease) ([facility]) Yes Overview Addendum 05/08/2024 1:29 PM by Miguel Downey MD 05/07 Duo nebs q6 SPO2 goal >88% On 4LNC 05/08 on 2LNC NSTEMI (non-ST elevated myocardial infarction) ([facility]) Yes Overview Addendum 05/07/2024 10:06 AM by Miguel Downey MD Diagnosed at OSH with elevated troponins of 0.05 to 0.23 to 0.16 Started on heparin drip BUTCHER'S ASSISTANT, 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 Repeat troponins pending 05/07 [...] intubated 05/07 extubated to 4C 05/08 resolved Low cardiac output syndrome (CMS/HCC) [...] pm diuresis per CT surg 05/08 +20 bostonix Miguel Downey MD * Progress Notes - [...] myocardial infarction) (CMS/HCC) GERD (gastroesophageal reflux disease) Prolonged Q-T interval on ECG Hypercholesteremia Hypoalphalipoproteinemia Overweight THOM (obstructive sleep apnea) S/P CABG x 4 On mechanically assisted ventilation (CMS/HCC) Low cardiac output syndrome (CMS/HCC) Hypertension Hyperkalemia Cardiac volume overload 53 yrs [...] 05/08/2024 4:19 PM EDT Associated attestation - aMite Austin MD - 05/08/2024 4:19 PM EDT [...] x 4 05/06/2024 On mechanically assisted ventilation ([facility]) 05/06/2024 Low cardiac output syndrome ([facility]) 05/06/2024 Hypertension 05/06/2024 Hyperkalemia 05/06/2024 Cardiac volume overload 05/06/2024 Prolonged Q-T interval on ECG 05/04/2024 Hypercholesteremia 05/04/2024 Hypoalphalipoproteinemia 05/04/2024 Overweight 05/04/2024 THOM (obstructive sleep apnea) 05/04/2024 Anxiety and depression 05/01/2024 COPD (chronic obstructive pulmonary disease) ([facility]) 05/01/2024 CAD, multiple vessel 05/01/2024 NSTEMI (non-ST elevated myocardial infarction) ([facility]) 05/01/2024 GERD (gastroesophageal reflux disease) 05/01/2024 Procedures 05/06/2024 Procedure(s): CABG, 2 OR MORE VESSELS Past Medical History Patient has a past medical history of Anxiety, COPD (chronic obstructive pulmonary disease) ([facility]) (05/01/2024), Depression, GERD (gastroesophageal reflux disease) (05/01/2024), [...] Mobility Bed Mobility Exam: Scooting/Bridging Level of [place]: Maximum assist (25% patient's effort) (to scoot to EOB while seated) Physical/Nonphysical Assist: Nonverbal cues (demo/gestures), Verbal Cues Bed Mobility Exam: Supine to Sit Level of [place]: Maximum assist (25% patient's effort) Physical/Nonphysical Assist: Additional assist utilized for safety, Nonverbal cues (demo/gestures),Verbal Cues, HOB elevated Transfers Transfer Exam: Sit to stand Level of [place]: Minimum assist (75% patient's effort) Physical/Nonphysical Assist: Verbal Cues, Nonverbal cues (demo/gestures), 1 person + 1 person to manage equipment Transfer Exam: Stand to Sit Level of [place]: Minimum assist (75% patient's effort) Physical/Nonphysical Assist: Verbal Cues, Nonverbal cues (demo/gestures), 1 person + 1 person to manage equipment Transfer Exam: Bed to Chair/Chair to Bed Level of [place]: Minimum assist (75% patient's effort) Physical/Nonphysical Assist: [...] Assessments Standardized Assessments: [facility] 6-Clicks Mobility Assessment [facility] 6-Clicks Mobility Assessment Difficulty patient has turning [...] railing?: A lot [facility] 6-Clicks Mobility Assessment Total : 15 Assessment [...] PM. * Progress Notes - Annika Shi - 05/07/2024 1:43 PM EDT Occupational Therapy Evaluation Patient Name: Rere Hunter Today's Date: 05/07/2024 OT Discharge Recommendations: Acute rehab Equipment Recommended: Defer to facility History Rere Hunter is 53 y.o. female admitted 05/01/2024 for work-up of CAD, multiple vessel. Problem List Active Hospital Problems Diagnosis Date Noted S/P CABG x 4 05/06/2024 On mechanically assisted ventilation ([facility]) 05/06/2024 Low cardiac output syndrome ([facility]) 05/06/2024 Hypertension 05/06/2024 Hyperkalemia 05/06/2024 Cardiac volume overload 05/06/2024 Prolonged Q-T interval on ECG 05/04/2024 Hypercholesteremia 05/04/2024 Hypoalphalipoproteinemia 05/04/2024 Overweight 05/04/2024 THOM (obstructive sleep apnea) 05/04/2024 Anxiety and depression 05/01/2024 COPD (chronic obstructive pulmonary disease) ([facility]) 05/01/2024 CAD, multiple vessel 05/01/2024 NSTEMI (non-ST elevated myocardial infarction) ([facility]) 05/01/2024 GERD (gastroesophageal reflux disease) 05/01/2024 Procedures 05/06/2024 Procedure(s): CABG, 2 OR MORE VESSELS Past Medical History Patient has a past medical history of Anxiety, COPD (chronic obstructive pulmonary disease) ([facility]) (05/01/2024), Depression, GERD (gastroesophageal reflux disease) (05/01/2024), Tobacco use (05/01/2024), and Tremor (05/01/2024). Past Surgical History Patient has a past surgical history that includes section, classic; Cholecystectomy; Shoulder surgery; Abdominal adhesion surgery; and Hand surgery (Right). Precautions Medical Precautions: Fall precautions, Sternal Subjective I feel dizzy. Participants in Care Family/Caregiver Present: No Dynamite Cartridge Crimper: Not Applicable Presentation Oxygen Therapy: Supplemental oxygen [...] Level Comments: Poor historian this date 03/18 pain meds Single Step Commands: With increased [...] Mobility Bed Mobility Exam: Scooting/Bridging Level of [place]: Maximum assist (25% patient's effort) (to scoot to EOB while seated) Physical/Nonphysical Assist: Nonverbal cues (demo/gestures), Verbal Cues Bed Mobility Exam: Supine to Sit Level of [place]: Maximum assist (25% patient's effort) Physical/Nonphysical Assist: Additional assist utilized for safety, Nonverbal cues (demo/gestures),Verbal Cues, HOB elevated Transfers Transfer Exam: Sit to stand Level of [place]: Minimum assist (75% patient's effort) Physical/Nonphysical Assist: Verbal Cues, Nonverbal cues (demo/gestures), 1 person + 1 person to manage equipment Transfer Exam: Stand to Sit Level of [place]: Minimum assist (75% patient's effort) Physical/Nonphysical Assist: Verbal Cues, Nonverbal cues (demo/gestures), 1 person + 1 person to manage equipment Transfer Exam: Bed to Chair/Chair to Bed Level of [place]: Minimum assist (75% patient's effort) Physical/Nonphysical Assist: [...] from EOB with min assist x2 using NATURAL GAS TREATING UNIT OPERATOR bilaterally and mod cues. Pt side stepped to the chair with min assist x2 using NATURAL GAS TREATING UNIT OPERATOR bilaterally and mod cues for safety/balance. See vitals section above for explanation as to why we deferred further functional mobility. Standardized Assessments [facility] 6-Click Daily Activities Help from Other: Don/Doff Regular Lower Body Clothings: A lot Help From Other: Bathing: A lot Help From Other: Toileting: A lot Help From Other: Don/Doff Upper Body Clothings: Little Help From Other: Grooming: Little Help From Other: Eating Meals: Little [facility] 6 Click - Daily Activities Score: [...] Note Rere Hunter 53 y.o. female CSN: [id number] Room/Bed 217/217A Nutrition evaluation type: assessment Reason [...] Supplemental oxygen O2 Delivery Method: Nasal cannula Dudley Coma Scale Score: 11 Shaan Scale Score: 20 Joshua/Cubbin Pressure Risk Score: 26 Most Recent BM [...] (Calculated): 25.46 Weight Evaluation: Overweight (BMI 25-29.9) [place] Body Weight (kg): 47.7 Percent [place] Body Weight: 128 Adjusted Body Weight (kg): 51 Estimated Needs: Metabolic Cart Study Results: Current Nutrition Intake: Diet Order: Adult Diet Diet Texture: Clear liquid Adult Carbohydrate Restriction: Consistent CHO 2 (3012-3554 Channing, 80 g/meal) Fat Restriction: Cardiac Diet Experience and Nutrition History: Diet Education Provided: Will monitor Pertinent home medications: reviewed Sabianism needs: Nutrition Focused Physical Exam: Physical exam [...] Date Anxiety COPD (chronic obstructive pulmonary disease) ([facility]) 05/01/2024 Continue Duo nebs q6 SPO2 goal >88% Depression GERD (gastroesophageal reflux disease) 05/01/2024 Continue Protonix 40 mg daily Tobacco use 05/01/2024 Slot Host for smoking 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 Complicates all [...] 1940 Sternum less than 1 ROS: GCS: Dudley Coma Scale Score: 11 Review of Systems [...] main artery stenosis Started on heparin drip BUTCHER'S ASSISTANT, continue CT Surgery consulted CABG work-up pending 05/07 POD 1 4vCABG Anxiety and depression Yes Overview Addendum 05/07/2024 10:05 AM by Miguel Downey MD 05/07 Continue home bupropion XL 300 mg daily Continue home citalopram 40 mg daily Continue PRN hydroxyzine 25 mg q6 COPD (chronic obstructive pulmonary disease) (CMS/HCC) Yes Overview Addendum 05/07/2024 10:06 AM by Miguel Downey MD 05/07 Duo nebs q6 SPO2 goal >88% On 4LNC NSTEMI (non-ST elevated myocardial infarction) (CMS/HCC) Yes Overview Addendum 05/07/2024 10:06 AM by Miguel Downey MD Diagnosed at OSH with elevated troponins of 0.05 to 0.23 to 0.16 Started on heparin drip BUTCHER'S ASSISTANT, 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 Repeat troponins pending 05/07 [...] assisted ventilation (CMS/HCC) Not Applicable Overview Addendum 05/07/2024 10:09 AM [...] and depression COPD (chronic obstructive pulmonary disease) ([facility]) Tobacco use NSTEMI (non-ST elevated myocardial infarction) ([facility]) GERD (gastroesophageal reflux disease) Leukocytosis Essential tremor Thrombocytosis Hypocalcemia Prolonged Q-T interval on ECG Hyperlipidemia Hypercholesteremia Hypertriglyceridemia Hypoalphalipoproteinemia Overweight HTOM (obstructive sleep apnea) S/P CABG x 4 On mechanically assisted ventilation ([facility]) Low cardiac output syndrome ([facility]) Hypertension Hyperkalemia Cardiac volume overload 53 yrs [...] Note Rere Hunter 53 y.o. female CSN: [id number] Admission: 05/01/2024 11:01 PM Primary Problem: CAD, [...] Date Anxiety COPD (chronic obstructive pulmonary disease) ([facility]) 05/01/2024 Depression GERD (gastroesophageal reflux disease) 05/01/2024 [...] Reviewed and otherwise non-contributory. Allergies: Allergies[4] GCS: Dudley Coma Scale Score: 6 Review of Systems Unable to perform ROS: Intubated 14 point ROS reviewed and otherwise negative or unobtainable except as noted above or in HPI. Vital signs: Vitals: 05/06/24 2200 BP: Pulse: 103 Resp: 20 Temp: SpO2: 97% Intake/Output Summary (Last 24 hours) at 05/06/2024 2221 Last data filed at 05/06/2024 2200 Gross [...] trachea.Bilateral chest tubes, mediastinal drain, right IJ [place]- [place] catheter with the tip overlying the [...] main artery stenosis Started on heparin drip BUTCHER'S ASSISTANT, continue CT Surgery consulted CABG work-up pending Anxiety and depression Yes Overview Signed 05/01/2024 11:34 PM by Marylu Carvajal APRN, DNP Continue home bupropion XL 300 mg daily Continue home citalopram 40 mg daily Continue PRN hydroxyzine 25 mg q6 COPD (chronic obstructive pulmonary disease) ([facility]) Yes Overview Addendum 05/01/2024 11:32 PM by Marylu Carvajal APRN, DNP Continue Duo nebs q6 SPO2 goal >88% Tobacco use Yes Overview Signed 05/01/2024 8:37 PM by Marylu Carvajal APRN, DNP Slot Host for smoking 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 Complicates all aspects of care and recovery NSTEMI (non-ST elevated myocardial infarction) ([facility]) Yes Overview Addendum 05/01/2024 8:41 PM by Marylu Carvajal APRN, DNP Diagnosed at OSH with elevated troponins of 0.05 to 0.23 to 0.16 Started on heparin drip BUTCHER'S ASSISTANT, 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 Repeat troponins pending GERD [...] 10:09 PM by Cydney Luu MD 05/06 w/Geovanna 4 chest tubes (mediastinal x2, left pleural, [...] CORONARY ARTERY BYPASS GRAFTING: Date: 05/06/2024 Location: [facility] Name: Rere Hunter, : 1970, Pre-operative [...] Austin - Primary * Graciela Blanca - 1st Assisting from skin incision until decannulation, no qualified resident present for the part of the operation. Dr. Andrew Wick assisted on the sternotomy closure and soft tissue closure. Anesthesia: General ASA Class: IV Indication: Severe symptomatic coronary artery disease. Brief History: 53-year-old lady with the above-mentioned medical history that includes extensive history of smoking and COPD who was admitted with non ST elevation GA found to have severe three-vessel coronary artery [...] procedure including bleeding, infection, poor wound healing, GA, stroke, injury to any organs in the [...] midnight. Andrew Hull MD Cardiothoracic Surgery Pager: [phone] * Significant Event - Trinity Yousif APRN - 05/05/2024 3:55 PM EDT Long conversation with Rere Hugh about the risks and benefits of this [...] placed. NPO after MN. CT surgery pager [phone] * Progress Notes - Trinity Yousif APRN [...] mL, Intravenous, q12h heparin - COM Adult ACS/GA Protocol - MAR calculator by anti-Xa, 0-35 Units/kg/hr, Last Rate: 13.9 Units/kg/hr (05/04/242037) PRN medications: acetaminophen, ALPRAZolam, calcium carbonate, heparin (porcine) - [facility] Adult ACS/MIProtocol - MAR Re-bolus [...] and tobacco abuse. She initially presented to [facility]. She ruled in for NSTEMI and underwent cardiac catheterization. She was found to have multivessel CAD with critical left main stenosis. She was transferred to for surgical revascularization evaluation. Multivessel CAD (POA) NSTEMI on presentation - troponins 0.05->0.23->0.16 - s/p Plavix load (600mg) - P2Y12 56 on 05/01-> 137 (05/03) - ASA, atorvastatin and beta-stacey - films uploaded in imaging and reviewed with Dr. Chery - [...] Leukocytosis (POA) - possible reactive secondary to GA - WBC 12.8, afebrile - continue to [...] for CABG with Dr. Austin. Cardiothoracic Surgery [phone] Cosigned by Maite Austin MD at 05/05/2024 [...] procedure including bleeding, infection, poor wound healing, GA, stroke, injury to any organs in the [...] [Held by provider] heparin - COM Adult ACS/GA Protocol - MAR calculator by anti- Xa, [...] and tobacco abuse. She initially presented to [facility]. She ruled in for NSTEMI and [...] Leukocytosis (POA) - possible reactive secondary to GA - WBC 12.8, afebrile - continue to [...] Continue current plan of care. Cardiothoracic Surgery [phone] * Care Plan - Maite Paulson RN [...] was here with (relationship: ). * Can Alex - Vicky Caruso RN [...] mL, Intravenous, q12h heparin - COM Adult ACS/GA Protocol - MAR calculator by anti-Xa, 0-35 [...] tomorrow for CABG with Dr. Chery - LOYO p MN - Preop orders placed - Consent obtained and placed on chart. HLD - statin Leukocytosis - possible reactive secondary to GA - afebrile - monitor COPD - Duonebs [...] tomorrow for CABG with Dr. Chery - LOYO p [place] - Preop orders placed - Consent obtained and placed on chart. - Hold heparin gtt at 4am Cardiothoracic Surgery [phone] * Progress Notes - Annika Perez RN - 05/03/2024 9:40 AM EDT Case Management Adult Progress Note Rere Hunter 53 y.o. female CSN: [id number] Admission: 05/01/2024 11:01 PM Primary Problem: CAD, multiple vessel Anticipated Discharge Date: tbd Additional Comments: CM chart review. Cm attended rounding this AM to discuss POC with MD. Patient is not medically ready at this time, OR plan pending P2Y12 results. Cm/SW will follow and arrange any discharge needs closer to discharge. Annika Perez RN * Can OnOBI - Vicky Caruso RN - 05/02/2024 3:57 [...] mL, Intravenous, q12h heparin - COM Adult ACS/GA Protocol - APR calculator by anti-Xa, 0-35 Units/kg/hr, Last Rate: 13 Units/kg/hr (05/02/24 0737) PRN medications: calcium carbonate, heparin (porcine) - COM Adult ACS/GA Protocol - MAR Re-bolus Calculator, hydrOXYzine HCl, ipratropium-albuterol, [...] statin Leukocytosis - possible reactive secondary to GA - afebrile - monitor COPD - Duonebs [...] for Tuesday pending P2y12 washout Cardiothoracic Surgery [phone] * Progress Notes - Annika Perez RN - 05/02/2024 1:05 PM EDT Case Management Adult Initial Progress Note Rere Hunter 53 y.o. female CSN: [id number] Admission: 05/01/2024 11:01 PM Primary Problem: CAD, multiple vessel Step Down Specialist reviewed chart and spoke with the patient at bedside to complete this Initial Case Management Assessment. 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 No Insurance: Primary Visit Coverage Payer Plan Sponsor Code Group Number Group Name [employer] Primary Visit Coverage Subscriber Subscriber ID Subscriber Name Subscriber SSN Subscriber Address [id number] RERE HUNTER [id number] [place] [address] Patient information: Primary Caregiver: Self Support System: Immediate family Daily Living Activities: Functional Status: Independent Living Arrangements: Family Type of Residence: Private residence, Single Level [address] [place] [address] Current DME: Equipment Currently Used at Home: [...] Dialysis Services: n/a Living Will/Advance Directive/Power of Wholesale And Retail Merchant /Guardian: Unable to assess: No Have you reviewed your Advance Directive and is it valid for this stay?: No Advance Directive: Patient does not have advance directive Information Provided on Healthcare Directives: No Pre-existing DNR/DNI Order: No Patient Requests Assistance: No Additional Comments:JAMARI PATEL met with patient at bedside for initial eval. Confirmed address: on file.Lives with family in a single level home. Patient states she was independent prior to admit. Deniesprior DME/HH/O2/HD/Abx. PCP is Dr. Quiroz in [place]. Has [employer] Medicaid insurance and uses the [facility] pharmacy. Daughter to transport and assist as needed at discharge. No current SW/CM needs identified. Will continue to follow and assist. Annika Perez RN * Consults - Anne Marie Johnson PA - 05/02/2024 4:54 AM EDTAssociated Order(s): IP CONSULT TO CARDIAC SURGERY Reason for visit / Chief Complaint: Coronary Artery Disease History of present illness: Rere Hunetr is a 53 y.o. female with a history of anxiety/depression, COPD and ongoing tobacco abuse who was referred to us in consultation by the [facility] after being transferred in from [facility] for possible surgical revascularization. Patient presented [...] depression 05/01/2024 COPD (chronic obstructive pulmonary disease) ([facility]) 05/01/2024 Tobacco use 05/01/2024 CAD, multiple vessel 05/01/2024 NSTEMI (non-ST elevated myocardial infarction) ([facility]) 05/01/2024 GERD (gastroesophageal reflux disease) 05/01/2024 Tremor 05/01/2024 HTN (hypertension) 05/01/2024 Medical History: Past Medical History: Diagnosis Date Anxiety COPD (chronic obstructive pulmonary disease) ([facility]) 05/01/2024 Continue Duo nebs q6 SPO2 goal >88% Depression GERD (gastroesophageal reflux disease) 05/01/2024 Continue Protonix 40 mg daily Tobacco use 05/01/2024 Slot Host for smoking 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 Complicates all [...] atorvastatin and beta-stacey - films uploaded in imaging - Pre-op studies ordered - obtain lipid panel and A1c Leukocytosis - possible reactive secondary to GA - monitor COPD - Duonebs ordered Anxiety/Depression [...] depression, and tobacco use who presented to [facility] on 05/01/24 c/o chest pain. Loaded with ASA and Plavix. LHC at OSH performed today showed critical distal left main artery stenosis. Also diagnosed with NSTEMI at OSH with elevated troponins of 0.05 to 0.23 to 0.16. Placed on a heparin drip prior to arrival. Transferred to [facility] on 05/01/[address] for CAB[address] evaluation by CT [...] Addendum 05/01/2024 11:33 PM by Marylu Carvajal, ARASH, JORGE Patient presented to OSH on 05/01/24 c/o chest pain Loaded with ASA & Plavix, continue LHC on 05/01/24 showed critical distal left main artery stenosis Started on heparin drip BUTCHER'S ASSISTANT, continue CT Surgery consulted CABG work-up pending Anxiety and depression Yes Overview Signed 05/01/2024 11:34 PM by Marylu Carvajal APRN, DNP Continue home bupropion XL 300 mg daily Continue home citalopram 40 mg daily Continue PRN hydroxyzine 25 mg q6 COPD (chronic obstructive pulmonary disease) ([facility]) Yes Overview Addendum 05/01/2024 11:32 PM by Marylu Carvajal APRN, DNP Continue Duo nebs q6 SPO2 goal >88% Tobacco use Yes Overview Signed 05/01/2024 8:37 PM by Marylu Carvajal APRN, DNP Slot Host for smoking 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 Complicates all aspects of care and recovery NSTEMI (non-ST elevated myocardial infarction) ([facility]) Yes Overview Addendum 05/01/2024 8:41 PM by Marylu Carvajal APRN, DNP Diagnosed at OSH with elevated troponins of 0.05 to 0.23 to 0.16 Started on heparin drip BUTCHER'S ASSISTANT, 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 Repeat troponins pending GERD [...] units/250 mL (100 unit/mL) infusion - Adult ACS/GA Protocol heparin (porcine) - COM Adult ACS/GA Protocol - MAR Re-bolus Calculator injection 0-3,700 [...] depression, and tobacco use who presented to [facility] on 05/01/24 c/o chest pain. Loaded with ASA and Plavix. LHC at OSH performed today showed critical distal left main artery stenosis. Also diagnosed with NSTEMI at OSH with elevated troponins of 0.05 to 0.23 to 0.16. Placed on a heparin drip prior to arrival. Transferred to [facility] on 05/01/24 for CABG evaluation by [facility] [...] Description 07/31/2024 9:00 AM EDT Office Visit [facility] General Surgery [address] [place] [address] Lidia Troncoso MD [address] [place] [address] Pending Results Name Type Priority Associated Diagnoses Date /Time Prepare Leukocyte Reduced RBC: 2 Units Blood Bank STAT 05/06/2024 6:41 PM EDT Scheduled Referrals Name Type Priority Associated Diagnoses Order Schedule Discharge Ambulatory referral to Cardiac Rehab Outpatient Referral Routine CAD, multiple vessel 1 Occurrences starting 05/06/2024 until 11/06/2025 Discharge Ambulatory referral to [facility] Outpatient Referral Routine Abdominal fluid collection Expected: 06/18/2024, Expires: 12/04/2025 Discharge Ambulatory referral to NON [facility] Outpatient Referral Routine S/P CABG x 4 Expected: 06/16/2024 (Approximate), Expires: 12/16/2025 Discharge Ambulatory referral to NON [facility] Outpatient Referral Routine S/P CABG x 4 [...] OXYGEN THERAPY Routine 05/30/2024 8:00 PM EDT [place] NEGATIVE PRESSURE WOUND THERAPY DME >50 SQ [...] OXYGEN THERAPY Routine 05/28/2024 8:00 PM EDT TN NEGATIVE PRESSURE WOUND THERAPY DME >50 SQ CM Routine 05/28/2024 6:10 PM EDT Colon perforation (CMS/HCC) [place] CRITICAL CARE, ADDL 30 MIN Routine 05/28/2024 [...] PEP THERAPY Routine 05/27/2024 2:00 PM EDT TN CRITICAL CARE, E/M 30-74 MINUTES Routine 05/27/2024 [...] BLOOD CELLS Routine 05/26/2024 4:16 PM EDT [place] CRITICAL CARE, ADDL 30 MIN Routine 05/26/2024 [...] PEP THERAPY Routine 05/24/2024 2:00 PM EDT TN CRITICAL CARE, E/M 30-74 MINUTES Routine 05/24/2024 [...] PEP THERAPY Routine 05/23/2024 2:00 PM EDT TN PART REMOVAL COLON W ANASTOMOSIS 05/23/2024 1:16 PM EDT Colon perforation (CMS/HCC) [place] EXPLORATORY OF ABDOMEN 05/23/2024 1:16 PM EDT [...] PANEL, PLASMA Timed 05/21/2024 12:09 PM EDT TN CRITICAL CARE, E/M 30-74 MINUTES Routine 05/21/2024 [...] PEP THERAPY Routine 05/20/2024 2:00 PM EDT TN CRITICAL CARE, E/M 30-74 MINUTES Routine 05/20/2024 [...] PEP THERAPY Routine 05/19/2024 6:00 PM EDT TN CRITICAL CARE, E/M 30-74 MINUTES Routine 05/19/2024 [...] VIEW Routine 05/19/2024 4:4 3 AM EDT [place] CRITICAL CARE, ADDL 30 MIN Routine 05/19/2024 [...] UNSOLICITED RESULTS Routine 05/18/2024 5:55 PM EDT [place] CRITICAL CARE, E/M 30-74 MINUTES Routine 05/18/2024 [...] PEP THERAPY Routine 05/17/2024 6:00 PM EDT TN CRITICAL CARE, E/M 30-74 MINUTES Routine 05/17/2024 [...] PANEL, PLASMA Routine 05/09/2024 11:30 AM EDT [place] CRITICAL CARE, ADDL 30 MIN Routine 05/09/2024 [...] PEP THERAPY Routine 05/08/2024 2:00 PM EDT [place] CRITICAL CARE, ADDL 30 MIN Routine 05/08/2024 [...] UNSOLICITED RESULTS Routine 05/07/2024 1:50 PM EDT [place] CRITICAL CARE, ADDL 30 MIN Routine 05/07/2024 [...] ARTERIAL Pending Discharge 05/07/2024 12:45 AM EDT [place] CRITICAL CARE, E/M 30-74 MINUTES Routine 05/06/2024 [...] PREPARE RBC Routine 05/06/2024 9:04 AM EDT EXTRA TUBE LIGHT GREEN TOP Routine 05/06/2024 [...] MD on 06/21/2024 10:22 AM Trinity Yousif [employer] IMG XR PROCEDURES Final Result * XR [...] - 2.4 mg/dL 06/21/2024 3:52 AM EDT [facility] Blood Venous blood specimen / Unknown Venipuncture / Unknown 06/21/2024 2:59 AM EDT 06/21/2024 3:23 AM EDT us Trinity Yousif APRN LAB BLOOD ORDERABLES Final Res ult [facility] [address] [place] [address] * (ABNORMAL) Comprehensive metabolic panel (06/21/2024 2:59 AM EDT) Glucose, Plasma 94 74 - 99 mg/dL 06/21/2024 3:52 AM EDT [facility] BUN, Plasma 4(L) 7 - 21 mg/dL 06/21/2024 3:52 AM EDT [facility] Creatinine, Plasma 0.63 0.60 - 1.10 mg/dL 06/21/2024 3:52 AM EDT [facility] BUN/Creatinine Ratio 6 06/21/2024 3:52 AM EDT [facility] Sodium, Plasma 131(L) 136 - 145 mmol/L 06/21/2024 3:52 AM EDT [facility] Potassium, Plasma 3.9 3.6 - 4.9 mmol/L 06/21/2024 3:52 AM EDT [facility] Chloride, Plasma 98 97 - 107 mmol/L 06/21/2024 3:52 AM EDT [facility] CO2, Plasma 25 22 - 29 mmol/L 06/21/2024 3:52 AM EDT [facility] Anion Gap 8 6 - 16 mmol/L 06/21/2024 3:52 AM EDT [facility] Total Calcium, Plasma 8.1(L) 8.9 - 10.2 mg/dL 06/21/2024 3:52 AM EDT [facility] Total Protein 6.7 6.3 - 7.9 g/dL 06/21/2024 3:52 AM EDT [facility] Albumin, Plasma 2.5(L) 3.5 - 5.2 g/dL 06/21/2024 3:52 AM EDT [facility] AST, Plasma 31 10 - 35 U/L 06/21/2024 3:52 AM EDT [facility] ALT, Plasma 54(H) 10 - 35 U/L 06/21/2024 3:52 AM EDT [facility] Alkaline Phosphatase, Plasma 155(H) 35 - 104 U/L 06/21/2024 3:52 AM EDT [facility] Total Bilirubin, Plasma 0.2 0.2 - 1.1 mg/dL 06/21/2024 3:52 AM EDT [facility] eGFRcr 105.6 mL/min/1.7 3m*2 06/21/2024 3:52 AM EDT [facility] Comment:Reported eGFRcr in m L/min/1.73m2 is based the CKD-EPI 2020 equation that does not use a race coefficient. Blood Venous blood specimen / Unknown Venipuncture / Unknown 06/21/2024 2:59 AM EDT 06/21/2024 3:23 AM EDT us Trinity Yousif [employer] LAB BLOOD ORDERABLES Final Res ult [facility] [address] [place] [address] * (ABNORMAL) Hemogram (CBC) (06/21/2024 2:59 AM EDT) WBC Count 12.36(H) 3.70 - 10.30 10*3/uL LAB HEMATOLOGY METHOD 06/21/2024 3:32 AM EDT [facility] RBC Count 3.86(L) 3.90 - 5.20 10*6/uL LAB HEMATOLOGY METHOD 06/21/2024 3:32 AM EDT [facility] HGB 11.2 11.2 - 15.7 g/dL LAB HEMATOLOGY METHOD 06/21/2024 3:32 AM EDT [facility] HCT 34.9 34.0 - 45.0 % LAB HEMATOLOGY METHOD 06/21/2024 3:32 AM EDT [facility] Platelet Count 707(H) 155 - 369 10*3/uL LAB HEMATOLOGY METHOD 06/21/2024 3:32 AM EDT [facility] MCV 90 79 - 98 fL LAB HEMATOLOGY METHOD 06/21/2024 3:32 AM EDT [facility] MCH 29.0 26.0 - 32.0 pg LAB HEMATOLOGY METHOD 06/21/2024 3:32 AM EDT [facility] MCHC 32.1 30.7 - 35.5 g/dL LAB HEMATOLOGY METHOD 06/21/2024 3:32 AM EDT [facility] RDW 14.6(H) 11.5 - 14.5 % LAB HEMATOLOGY METHOD 06/21/2024 3:32 AM EDT [facility] MPV 8.6(L) 8.8 - 12.5 fL LAB HEMATOLOGY METHOD 06/21/2024 3:32 AM EDT [facility] nRBC 0.0 <=0.0 per 100 WBCs LAB HEMATOLOGY METHOD 06/21/2024 3:32 AM EDT [facility] Blood Venous blood specimen / Unknown Venipuncture / Unknown 06/21/2024 2:59 AM EDT 06/21/2024 3:24 AM EDT us Trinity Yousif APRN LAB BLOOD ORDERABLES Final Res ult [facility] [address] [place] [address] * XR Abdomen 1 View (06/20/2024 5:30 [...] Yamil Delong MD on 06/20/2024 9:38 AM Dulec Alamo APRN IMG XR PROCEDURES Final Resu lt * N-Terminal Probnp, Plasma (06/20/2024 4:45 AM EDT) N-Terminal, PROBNP, Plasma 652 0 - 899 pg/mL 06/20/2024 6:04 AM EDT [facility] Blood Venous blood specimen / Unknown Venipuncture / Unknown 06/20/2024 4:45 AM EDT 06/20/2024 5:24 AM EDT Dulce Alamo APRN LAB BLOOD ORDERABLES Final R esult [facility] [address] [place] [address] * (ABNORMAL) Comprehensive Metabolic Panel, Plasma (06/20/2024 4:45 AM EDT) Glucose, Plasma 98 74 - 99 mg/dL 06/20/2024 6:04 AM EDT [facility] BUN, Plasma 4(L) 7 - 21 mg/dL 06/20/2024 6:04 AM EDT [facility] Creatinine, Plasma 0.59(L) 0.60 - 1.10 mg/dL 06/20/2024 6:04 AM EDT [facility] BUN/Creatinine Ratio 7 06/20/2024 6:04 AM EDT [facility] Sodium, Plasma 129(L) 136 - 145 mmol/L 06/20/2024 6:04 AM EDT [facility] Potassium, Plasma 4.4 3.6 - 4.9 mmol/L 06/20/2024 6:04 AM EDT [facility] Chloride, Plasma 95(L) 97 - 107 mmol/L 06/20/2024 6:04 AM EDT [facility] CO2, Plasma 24 22 - 29 mmol/L 06/20/2024 6:04 AM EDT [facility] Anion Gap 10 6 - 16 mmol/L 06/20/2024 6:04 AM EDT [facility] Total Calcium, Plasma 7.9(L) 8.9 - 10.2 mg/dL 06/20/2024 6:04 AM EDT [facility] Total Protein 6.5 6.3 - 7.9 g/dL 06/20/2024 6:04 AM EDT [facility] Albumin, Plasma 2.5(L) 3.5 - 5.2 g/dL 06/20/2024 6:04 AM EDT [facility] AST, Plasma 45(H) 10 - 35 U/L 06/20/2024 6:04 AM EDT [facility] ALT, Plasma 68(H) 10 - 35 U/L 06/20/2024 6:04 AM EDT [facility] Alkaline Phosphatase, Plasma 159(H) 35 - 104 U/L 06/20/2024 6:04 AM EDT [facility] Total Bilirubin, Plasma 0.2 0.2 - 1.1 mg/dL 06/20/2024 6:04 AM EDT [facility] eGFRcr 107.3 mL/min/1.7 3m*2 06/20/2024 6:04 AM EDT [facility] Comment:Reported eGFRcr in m L/min/1.73m2 is based the CKD-EPI 2020 equation that does not use a race coefficient. Blood Venous blood specimen / Unknown Venipuncture / Unknown 06/20/2024 4:45 AM EDT 06/20/2024 5:24 AM EDT Dulce Alamo [employer] LAB BLOOD ORDERABLES Final R esult Performing Organization Address City/[facility]/ZIP Co de Phone Number [facility] [address] [place] [address] * Magnesium, Plasma (06/20/2024 4:45 AM EDT) Pathologist [facility] Magnesium, Plasma 1.9 1.9 - 2.4 mg/dL 06/20/2024 6:04 AM EDT [facility] Blood Venous blood specimen / Unknown Venipuncture / Unknown 06/20/2024 4:45 AM EDT 06/20/2024 5:24 AM EDT Dulce Alamo [employer] LAB BLOOD ORDERABLES Final R esult Performing Organization Address City/[facility] de Phone Number [facility] [address] [place] [address] * (ABNORMAL) CBC W/O Differential (06/20/2024 4:45 AM EDT) WBC Count 17.53(H) 3.70 - 10.30 10*3/uL LAB HEMATOLOGY METHOD 06/20/2024 5:54 AM EDT [facility] RBC Count 3.83(L) 3.90 - 5.20 10*6/uL LAB HEMATOLOGY METHOD 06/20/2024 5:54 AM EDT [facility] HGB 11.2 11.2 - 15.7 g/dL LAB HEMATOLOGY METHOD 06/20/2024 5:54 AM EDT [facility] HCT 34.5 34.0 - 45.0 % LAB HEMATOLOGY METHOD 06/20/2024 5:54 AM EDT [facility] Platelet Count 682(H) 155 - 369 10*3/uL LAB HEMATOLOGY METHOD 06/20/2024 5:54 AM EDT [facility] MCV 90 79 - 98 fL LAB HEMATOLOGY METHOD 06/20/2024 5:54 AM EDT [facility] MCH 29.2 26.0 - 32.0 pg LAB HEMATOLOGY METHOD 06/20/2024 5:54 AM EDT [facility] MCHC 32.5 30.7 - 35.5 g/dL LAB HEMATOLOGY METHOD 06/20/2024 5:54 AM EDT [facility] RDW 14.6(H) 11.5 - 14.5 % LAB HEMATOLOGY METHOD 06/20/2024 5:54 AM EDT [facility] MPV 8.8 8.8 - 12.5 fL LAB HEMATOLOGY METHOD 06/20/2024 5:54 AM EDT [facility] nRBC 0.0 <=0.0 per 100 WBCs LAB HEMATOLOGY METHOD 06/20/2024 5:54 AM EDT [facility] Blood Venous blood specimen / Unknown Venipuncture / Unknown 06/20/2024 4:45 AM EDT 06/20/2024 5:27 AM EDT us Dulce Alamo [employer] LAB BLOOD ORDERABLES Final R esult Performing Organization Address City/[facility]/ZIP Co de Phone Number [facility] [address] [place] [address] * N-Terminal Probnp, Plasma (06/19/2024 5:13 AM EDT) N-Terminal, PROBNP, Plasma 481 0 - 899 pg/mL 06/19/2024 6:05 PM EDT [facility] Blood Venous blood specimen / Unknown Venipuncture / Unknown 06/19/2024 5:13 AM EDT 06/19/2024 5:40 AM EDT us Dulce Lois Alamo [employer] LAB BLOOD ORDERABLES Final R esult Performing Organization Address City/[facility]/ZIP Co de Phone Number [facility] [address] [place] [address] * (ABNORMAL) Magnesium (06/19/2024 5:13 AM EDT) Magnesium, Plasma 1.8(L) 1.9 - 2.4 mg/dL 06/19/2024 6:13 AM EDT [facility] Blood Venous blood specimen / Unknown Venipuncture / Unknown 06/19/2024 5:13 AM EDT 06/19/2024 5:40 AM EDT us Trinity Yousif APRN LAB BLOOD ORDERABLES Final Res ult [facility] [address] [place] [address] * (ABNORMAL) Comprehensive metabolic panel (06/19/2024 5:13 AM EDT) Glucose, Plasma 90 74 - 99 mg/dL 06/19/2024 6:13 AM EDT [facility] BUN, Plasma 5(L) 7 - 21 mg/dL 06/19/2024 6:13 AM EDT [facility] Creatinine, Plasma 0.69 0.60 - 1.10 mg/dL 06/19/2024 6:13 AM EDT [facility] BUN/Creatinine Ratio 7 06/19/2024 6:13 AM EDT [facility] Sodium, Plasma 130(L) 136 - 145 mmol/L 06/19/2024 6:13 AM EDT [facility] Potassium, Plasma 3.5(L) 3.6 - 4.9 mmol/L 06/19/2024 6:13 AM EDT [facility] Chloride, Plasma 97 97 - 107 mmol/L 06/19/2024 6:13 AM EDT [facility] CO2, Plasma 24 22 - 29 mmol/L 06/19/2024 6:13 AM EDT [facility] Anion Gap 9 6 - 16 mmol/L 06/19/2024 6:13 AM EDT [facility] Total Calcium, Plasma 8.1(L) 8.9 - 10.2 mg/dL 06/19/2024 6:13 AM EDT [facility] Total Protein 6.5 6.3 - 7.9 g/dL 06/19/2024 6:13 AM EDT [facility] Albumin, Plasma 2.5(L) 3.5 - 5.2 g/dL 06/19/2024 6:13 AM EDT [facility] AST, Plasma 37(H) 10 - 35 U/L 06/19/2024 6:13 AM EDT [facility] ALT, Plasma 62(H) 10 - 35 U/L 06/19/2024 6:13 AM EDT [facility] Alkaline Phosphatase, Plasma 153(H) 35 - 104 U/L 06/19/2024 6:13 AM EDT [facility] Total Bilirubin, Plasma 0.2 0.2 - 1.1 mg/dL 06/19/2024 6:13 AM EDT [facility] eGFRcr 103.3 mL/min/1.7 3m*2 06/19/2024 6:13 AM EDT [facility] Comment:Reported eGFRcr in m L/min/1.73m2 is based the CKD-EPI 2020 equation that does not use a race coefficient. Blood Venous blood specimen / Unknown Venipuncture / Unknown 06/19/2024 5:13 AM EDT 06/19/2024 5:40 AM EDT Trinity Yousif APRN LAB BLOOD ORDERABLES Final Res ult [facility] [address] [place] [address] * (ABNORMAL) Hemogram (CBC) (06/19/2024 5:13 AM EDT) WBC Count 11.65(H) 3.70 - 10.30 10*3/uL LAB HEMATOLOGY METHOD 06/19/2024 5:51 AM EDT [facility] RBC Count 3.67(L) 3.90 - 5.20 10*6/uL LAB HEMATOLOGY METHOD 06/19/2024 5:51 AM EDT [facility] HGB 10.7(L) 11.2 - 15.7 g/dL LAB HEMATOLOGY METHOD 06/19/2024 5:51 AM EDT [facility] HCT 33.1(L) 34.0 - 45.0 % LAB HEMATOLOGY METHOD 06/19/2024 5:51 AM EDT [facility] Platelet Count 615(H) 155 - 369 10*3/uL LAB HEMATOLOGY METHOD 06/19/2024 5:51 AM EDT [facility] MCV 90 79 - 98 fL LAB HEMATOLOGY METHOD 06/19/2024 5:51 AM EDT [facility] MCH 29.2 26.0 - 32.0 pg LAB HEMATOLOGY METHOD 06/19/2024 5:51 AM EDT [facility] MCHC 32.3 30.7 - 35.5 g/dL LAB HEMATOLOGY METHOD 06/19/2024 5:51 AM EDT [facility] RDW 14.6(H) 11.5 - 14.5 % LAB HEMATOLOGY METHOD 06/19/2024 5:51 AM EDT [facility] MPV 8.8 8.8 - 12.5 fL LAB HEMATOLOGY METHOD 06/19/2024 5:51 AM EDT [facility] nRBC 0.0 <=0.0 per 100 WBCs LAB HEMATOLOGY METHOD 06/19/2024 5:51 AM EDT [facility] Blood Venous blood specimen / Unknown Venipuncture / Unknown 06/19/2024 5:13 AM EDT 06/19/2024 5:41 AM EDT us Trinity Yousif APRN LAB BLOOD ORDERABLES Final Res ult [facility] [address] [place] [address] * XR Abdomen 1 View (06/19/2024 5:08 [...] Davenport MD on 06/19/2024 8:19 AM Trinity Dayana Yousif [employer] IMG XR PROCEDURES Final Result * XR [...] MD on 06/18/2024 8:43 AM Trinity Yousif [employer] IMG XR PROCEDURES Final Result * XR [...] - 2.4 mg/dL 06/18/2024 3:39 AM EDT [facility] Blood Venous blood specimen / Unknown Venipuncture / Unknown 06/18/2024 2:32 AM EDT 06/18/2024 3:02 AM EDT us Trinity Yousif APRN LAB BLOOD ORDERABLES Final Res ult [facility] [address] [place] [address] * (ABNORMAL) Comprehensive metabolic panel (06/18/2024 2:32 AM EDT) Glucose, Plasma 94 74 - 99 mg/dL 06/18/2024 3:39 AM EDT [facility] BUN, Plasma 4(L) 7 - 21 mg/dL 06/18/2024 3:39 AM EDT [facility] Creatinine, Plasma 0.59(L) 0.60 - 1.10 mg/dL 06/18/2024 3:39 AM EDT [facility] BUN/Creatinine Ratio 7 06/18/2024 3:39 AM EDT [facility] Sodium, Plasma 132(L) 136 - 145 mmol/L 06/18/2024 3:39 AM EDT [facility] Potassium, Plasma 4.1 3.6 - 4.9 mmol/L 06/18/2024 3:39 AM EDT [facility] Chloride, Plasma 96(L) 97 - 107 mmol/L 06/18/2024 3:39 AM EDT [facility] CO2, Plasma 25 22 - 29 mmol/L 06/18/2024 3:39 AM EDT [facility] Anion Gap 11 6 - 16 mmol/L 06/18/2024 3:39 AM EDT [facility] Total Calcium, Plasma 8.3(L) 8.9 - 10.2 mg/dL 06/18/2024 3:39 AM EDT [facility] Total Protein 6.6 6.3 - 7.9 g/dL 06/18/2024 3:39 AM EDT [facility] Albumin, Plasma 2.7(L) 3.5 - 5.2 g/dL 06/18/2024 3:39 AM EDT [facility] AST, Plasma 43(H) 10 - 35 U/L 06/18/2024 3:39 AM EDT [facility] ALT, Plasma 72(H) 10 - 35 U/L 06/18/2024 3:39 AM EDT [facility] Alkaline Phosphatase, Plasma 164(H) 35 - 104 U/L 06/18/2024 3:39 AM EDT [facility] Total Bilirubin, Plasma 0.3 0.2 - 1.1 mg/dL 06/18/2024 3:39 AM EDT [facility] eGFRcr 107.3 mL/min/1.7 3m*2 06/18/2024 3:39 AM EDT [facility] Comment:Reported eGFRcr in m L/min/1.73m2 is based the CKD-EPI 2020 equation that does not use a race coefficient. Blood Venous blood specimen / Unknown Venipuncture / Unknown 06/18/2024 2:32 AM EDT 06/18/2024 3:02 AM EDT us Trinity Yousif APRN LAB BLOOD ORDERABLES Final Res ult [facility] [address] [place] [address] * (ABNORMAL) Hemogram (CBC) (06/18/2024 2:32 AM EDT) WBC Count 16.58(H) 3.70 - 10.30 10*3/uL LAB HEMATOLOGY METHOD 06/18/2024 3:13 AM EDT [facility] RBC Count 3.79(L) 3.90 - 5.20 10*6/uL LAB HEMATOLOGY METHOD 06/18/2024 3:13 AM EDT [facility] HGB 11.0(L) 11.2 - 15.7 g/dL LAB HEMATOLOGY METHOD 06/18/2024 3:13 AM EDT [facility] HCT 33.7(L) 34.0 - 45.0 % LAB HEMATOLOGY METHOD 06/18/2024 3:13 AM EDT [facility] Platelet Count 565(H) 155 - 369 10*3/uL LAB HEMATOLOGY METHOD 06/18/2024 3:13 AM EDT [facility] MCV 89 79 - 98 fL LAB HEMATOLOGY METHOD 06/18/2024 3:13 AM EDT [facility] MCH 29.0 26.0 - 32.0 pg LAB HEMATOLOGY METHOD 06/18/2024 3:13 AM EDT [facility] MCHC 32.6 30.7 - 35.5 g/dL LAB HEMATOLOGY METHOD 06/18/2024 3:13 AM EDT [facility] RDW 14.7(H) 11.5 - 14.5 % LAB HEMATOLOGY METHOD 06/18/2024 3:13 AM EDT [facility] MPV 8.8 8.8 - 12.5 fL LAB HEMATOLOGY METHOD 06/18/2024 3:13 AM EDT [facility] nRBC 0.0 <=0.0 per 100 WBCs LAB HEMATOLOGY METHOD 06/18/2024 3:13 AM EDT [facility] Blood Venous blood specimen / Unknown Venipuncture / Unknown 06/18/2024 2:32 AM EDT 06/18/2024 3:02 AM EDT Trinity Yousif APRN LAB BLOOD ORDERABLES Final Res ult Performing Organization Address City/[facility]/ZIP Co de Phone Number [facility] [address] [place] [address] * (ABNORMAL) POCT glucose meter (06/17/2024 8:09 PM EDT) Pathologist [facility] POCT Glucose 145(H) 74 - 99 mg/dL [...] for testing. Comment 06/17/2024 8:11 PM EDT [facility] Hot [employer] Press Offbearer ID Aletha Vargaskunuh 025 8:11 PM EDT HEALTHCARE LAB Device ID [id number] 06/17/2024 8:11 PM EDT [facility] Specimen Type POC Capillary 06/17/2024 8:11 PM EDT [facility] Blood Capillary blood specimen / Unknown 06/17/2024 8:09 PM EDT 06/17/2024 8:11 PM EDT Maite Austin MD LAB POINT OF CARE TE ST DOCKED DEVICE UNSOLICITED RESULTS Final Result Performing Organization Address City/[facility]/ZIP Co de Phone Number [facility] [address] [place] [address] * (ABNORMAL) POCT glucose meter (06/17/2024 4:51 PM EDT) Pathologist [facility] POCT Glucose 118(H) 74 - 99 mg/dL [...] 06/17/2024 7:32 PM EDT [facility] Hot [employer] Offbearer ID Brooklyn Goldsmith 06/17/2024 7:32 PM EDT [facility] Device ID [id number] 06/17/2024 7:32 PM EDT [facility]ALTH[facility] LAB Specimen Type POC Capillary 06/17/2024 7:32 PM EDT [facility] Blood Capillary blood specimen / Unknown 06/17/2024 4:51 PM EDT 06/17/2024 7:32 PM EDT us Maite Austin MD LAB POINT OF CARE TE ST DOCKED DEVICE UNSOLICITED RESULTS Final Result [facility] [address] [place] [address] * XR Abdomen 1 View (06/17/2024 2:52 [...] MD on 06/17/2024 3:00 PM Trinity Yousif [employer] IMG XR PROCEDURES Final Result * POCT [...] 06/17/2024 7:19 PM EDT [facility] [employer] Offbearer ID Leonarda Londono 7:19 PM EDT HEALTH[facility]ARE LAB Device ID [id number] 06/17/2024 7:19 PM EDT [facility]ALTH[facility] LAB Specimen Type POC Capillary 06/17/2024 7:19 PM EDT [facility] Blood Capillary blood specimen / Unknown 06/17/2024 12:00 PM EDT 06/17/2024 7:19 PM EDT us Maite Austin MD LAB POINT OF CARE TE ST DOCKED DEVICE UNSOLICITED RESULTS Final Result [facility] [address] [place] [address] * POCT glucose meter (06/17/2024 7:48 AM [...] for testing. Comment 06/17/2024 7:17 PM EDT [facility] Hot Plate [employer] Offbearer ID Leonarda Londono 7:17 PM EDT HEALTH[facility]ARE LAB Device ID [id number] 06/17/2024 7:17 PM EDT [facility] LAB Specimen Type POC Capillary 06/17/2024 7:17 PM EDT [facility] Blood Capillary blood specimen / Unknown 06/17/2024 7:48 AM EDT 06/17/2024 7:17 PM EDT Maite Austin MD LAB POINT OF CARE TE ST DOCKED DEVICE UNSOLICITED RESULTS Final Result Performing Organization Address City/State/[facility] de Phone Number [facility]ARE [facility] [address] [place] [address] * XR Chest 1 View (06/17/2024 5:15 [...] Adarsh Richardson MD on 06/17/2024 4:32 PM us Trinity Yousif APRN IMG XR PROCEDURES Final Result * (ABNORMAL) Magnesium (06/17/2024 3:53 AM EDT) Magnesium, Plasma 1.8(L) 1.9 - 2.4 mg/dL 06/17/2024 4:36 AM EDT [facility] Blood Venous blood specimen / Unknown Venipuncture / Unknown 06/17/2024 3:53 AM EDT 06/17/2024 4:06 AM EDT us Trinity Yousif APRN LAB BLOOD ORDERABLES Final Res ult [facility] [address] [place] [address] * (ABNORMAL) Comprehensive metabolic panel (06/17/2024 3:53 AM EDT) Glucose, Plasma 104(H) 74 - 99 mg/dL 06/17/2024 4:36 AM EDT [facility] BUN, Plasma 4(L) 7 - 21 mg/dL 06/17/2024 4:36 AM EDT [facility] Creatinine, Plasma 0.61 0.60 - 1.10 mg/dL 06/17/2024 4:36 AM EDT [facility] BUN/Creatinine Ratio 7 06/17/2024 4:36 AM EDT [facility] Sodium, Plasma 130(L) 136 - 145 mmol/L 06/17/2024 4:36 AM EDT [facility] Potassium, Plasma 4.2 3.6 - 4.9 mmol/L 06/17/2024 4:36 AM EDT [facility] Chloride, Plasma 95(L) 97 - 107 mmol/L 06/17/2024 4:36 AM EDT [facility] CO2, Plasma 25 22 - 29 mmol/L 06/17/2024 4:36 AM EDT [facility] Anion Gap 10 6 - 16 mmol/L 06/17/2024 4:36 AM EDT [facility] Total Calcium, Plasma 8.3(L) 8.9 - 10.2 mg/dL 06/17/2024 4:36 AM EDT [facility] Total Protein 6.9 6.3 - 7.9 g/dL 06/17/2024 4:36 AM EDT [facility] Albumin, Plasma 2.7(L) 3.5 - 5.2 g/dL 06/17/2024 4:36 AM EDT [facility] AST, Plasma 70(H) 10 - 35 U/L 06/17/2024 4:36 AM EDT [facility] ALT, Plasma 87(H) 10 - 35 U/L 06/17/2024 4:36 AM EDT [facility] Alkaline Phosphatase, Plasma 172(H) 35 - 104 U/L 06/17/2024 4:36 AM EDT [facility] Total Bilirubin, Plasma 0.3 0.2 - 1.1 mg/dL 06/17/2024 4:36 AM EDT [facility] eGFRcr 106.4 mL/min/1.7 3m*2 06/17/2024 4:36 AM EDT [facility] Comment:Reported eGFRcr in m L/min/1.73m2 is based the CKD-EPI 2020 equation that does not use a race coefficient. Blood Venous blood specimen / Unknown Venipuncture / Unknown 06/17/2024 3:53 AM EDT 06/17/2024 4:06 AM EDT us Trinity Yousif [employer] LAB BLOOD ORDERABLES Final Res ult [facility] [address] [place] [address] * (ABNORMAL) Hemogram (CBC) (06/17/2024 3:53 AM EDT) WBC Count 12.53(H) 3.70 - 10.30 10*3/uL LAB HEMATOLOGY METHOD 06/17/2024 4:17 AM EDT [facility] RBC Count 3.53(L) 3.90 - 5.20 10*6/uL LAB HEMATOLOGY METHOD 06/17/2024 4:17 AM EDT [facility] [facility] HGB 10.4(L) 11.2 - 15.7 g/dL LAB HEMATOLOGY METHOD 06/17/2024 4:17 AM EDT [facility] HCT 31.9(L) 34.0 - 45.0 % LAB HEMATOLOGY METHOD 06/17/2024 4:17 AM EDT [facility] Platelet Count 514(H) 155 - 369 10*3/uL LAB HEMATOLOGY METHOD 06/17/2024 4:17 AM EDT [facility] MCV 90 79 - 98 fL LAB HEMATOLOGY METHOD 06/17/2024 4:17 AM EDT [facility] MCH 29.5 26.0 - 32.0 pg LAB HEMATOLOGY METHOD 06/17/2024 4:17 AM EDT [facility] MCHC 32.6 30.7 - 35.5 g/dL LAB HEMATOLOGY METHOD 06/17/2024 4:17 AM EDT [facility] RDW 14.8(H) 11.5 - 14.5 % LAB HEMATOLOGY METHOD 06/17/2024 4:17 AM EDT [facility] MPV 8.8 8.8 - 12.5 fL LAB HEMATOLOGY METHOD 06/17/2024 4:17 AM EDT [facility] nRBC 0.0 <=0.0 per 100 WBCs LAB HEMATOLOGY METHOD 06/17/2024 4:17 AM EDT [facility] Blood Venous blood specimen / Unknown Venipuncture / Unknown 06/17/2024 3:53 AM EDT 06/17/2024 4:07 AM EDT us Trinity Yousif APRN LAB BLOOD ORDERABLES Final Res ult [facility] [address] [place] [address] * SEND JOCELYNE MESSAGE (06/16/2024 8:21 PM EDT) Urine Urine specimen obtained by clean catch procedure / Unknown Non-blood Collection / Unknown 06/16/2024 8:21 PM EDT 06/16/2024 8:26 PM EDT Trinity Yousif APRN LAB URINE ORDERABLES Final Res ult Performing Organization Address [facility] Co de Phone Number [facility] [address] [place] [address] * Urine Culture (06/16/2024 8:21 PM EDT) Culture <10,000 CFU/mL Mixed urogenital, fecal, or skin quincy present. 06/18/2024 10:03 AM EDT [facility] Urine Urine specimen obtained by clean catch procedure / Unknown Non-blood Collection / Unknown 06/16/2024 8:21 PM EDT 06/16/2024 8:26 PM EDT Trinity Yousif APRN LAB MICROBIOLOGY - GENERAL ORD ERABLES Final Result Performing Organization Address City/[facility]/ZIP Co de Phone Number [facility] [address] [place] [address] * Urinalysis Microscopic Examination (06/16/2024 8:21 PM EDT) Urine Urine specimen obtained by clean catch procedure / Unknown Non-blood Collection / Unknown 06/16/2024 8:21 PM EDT 06/16/2024 8:26 PM EDT Trinity Yousif APRN LAB URINE ORDERABLES Final Res ult Performing Organization Address City/[facility]/ZIP Co de Phone Number [facility] [address] [place] [address] * Urine Francis Panel (06/16/2024 8:21 PM EDT) Extra Sent for Culture 06/16/2024 10:02 PM EDT [facility] Urine Urine specimen obtained by clean catch procedure / Unknown Non-blood Collection / Unknown 06/16/2024 8:21 PM EDT 06/16/2024 8:26 PM EDT us Trinity Anne Yousif [employer] LAB URINE ORDERABLES Final Res ult [facility] [address] [place] [address] * (ABNORMAL) Urinalysis with reflex microscopic (Culture NOT Included) (06/16/2024 8:21 PM EDT) Color, Urine Yellow LAB URINALYSIS - AUTOMATED METHOD 06/16/2024 8:55 PM EDT [facility] Clarity, Urine Clear LAB URINALYSIS - AUTOMATED METHOD 06/16/2024 8:55 PM EDT [facility] Spec [place], Urine 1.013 1.005 - 1.030 LAB URINALYSIS - AUTOMATED METHOD 06/16/2024 8:55 PM EDT [facility] pH, Urine 6.0 5.0 - 8.0 LAB URINALYSIS - AUTOMATED METHOD 06/16/2024 8:55 PM EDT [facility] Protein, Urine Negative Negative mg/dL LAB URINALYSIS - AUTOMATED METHOD 06/16/2024 8:55 PM EDT [facility] Glucose, Urine Negative Negative mg/dL LAB URINALYSIS - AUTOMATED METHOD 06/16/2024 8:55 PM EDT [facility] Ketones, Urine Negative Negative mg/dL LAB URINALYSIS - AUTOMATED METHOD 06/16/2024 8:55 PM EDT [facility] Blood, Urine Negative Negative LAB URINALYSIS - AUTOMATED METHOD 06/16/2024 8:55 PM EDT [facility] Bilirubin, Urine Negative Negative LAB URINALYSIS - AUTOMATED METHOD 06/16/2024 8:55 PM EDT [facility] Urobilinogen, Urine 0.2 0.2 to 1.0 mg/dL LAB URINALYSIS - AUTOMATED METHOD 06/16/2024 8:55 PM EDT [facility] Leukocytes, Urine Large(A) Negative LAB URINALYSIS - AUTOMATED METHOD 06/16/2024 8:55 PM EDT [facility] Nitrite, Urine Negative Negative LAB URINALYSIS - AUTOMATED METHOD 06/16/2024 8:55 PM EDT [facility] RBC, Urine 2 0 to 3 /HPF LAB URINALYSIS - AUTOMATED METHOD 06/16/2024 8:55 PM EDT [facility] WBC, Urine >50(A) 0 to 5 /HPF LAB URINALYSIS - AUTOMATED METHOD 06/16/2024 8:55 PM EDT [facility] Squamous Epithelial Cells 11 - 20(A) 0 to 5 /HPF LAB URINALYSIS - AUTOMATED METHOD 06/16/2024 8:55 PM EDT [facility] Hyaline Casts 0 - 2 0 to 5 /LPF LAB URINALYSIS - AUTOMATED METHOD 06/16/2024 8:55 PM EDT [facility] Bacteria, Urine Present Negative LAB URINALYSIS - AUTOMATED METHOD 06/16/2024 8:55 PM EDT [facility] Renal Tubular Cells Present Absent 06/16/2024 8:55 PM EDT [facility] Transitional Epithelial Cells Present Absent 06/16/2024 8:55 PM EDT [facility] Yeast (Budding and/or Pseudohyphae) Present(A) Absent 06/16/2024 8:55 PM EDT [facility] Urine Urine specimen obtained by clean catch procedure / Unknown Non-blood Collection / Unknown 06/16/2024 8:21 PM EDT 06/16/2024 8:26 PM EDT Narrative [facility] - 06/16/2024 8:55 PM EDT Performed by manual method us Trinity S Yousif [employer] LAB URINE ORDERABLES Final Res ult Performing Organization Address City/[facility]/ZIP Co de Phone Number [facility] [address] [place] [address] * Magnesium (06/16/2024 4:07 AM EDT) Magnesium, Plasma 2.0 1.9 - 2.4 mg/dL 06/16/2024 4:59 AM EDT [facility] Blood Venous blood specimen / Unknown Venipuncture / Unknown 06/16/2024 4:07 AM EDT 06/16/2024 4:29 AM EDT us Trinity S Yousif [employer] LAB BLOOD ORDERABLES Final Res ult [facility] [address] [place] [address] * (ABNORMAL) Comprehensive metabolic panel (06/16/2024 4:07 AM EDT) Glucose, Plasma 93 74 - 99 mg/dL 06/16/2024 4:59 AM EDT [facility] BUN, Plasma 7 7 - 21 mg/dL 06/16/2024 4:59 AM EDT [facility] Creatinine, Plasma 0.57(L) 0.60 - 1.10 mg/dL 06/16/2024 4:59 AM EDT [facility] BUN/Creatinine Ratio 12 06/16/2024 4:59 AM EDT [facility] Sodium, Plasma 134(L) 136 - 145 mmol/L 06/16/2024 4:59 AM EDT [facility] Potassium, Plasma 3.6 3.6 - 4.9 mmol/L 06/16/2024 4:59 AM EDT [facility] Chloride, Plasma 98 97 - 107 mmol/L 06/16/2024 4:59 AM EDT [facility] CO2, Plasma 26 22 - 29 mmol/L 06/16/2024 4:59 AM EDT [facility] Anion Gap 10 6 - 16 mmol/L 06/16/2024 4:59 AM EDT [facility] Total Calcium, Plasma 7.9(L) 8.9 - 10.2 mg/dL 06/16/2024 4:59 AM EDT [facility] Total Protein 6.6 6.3 - 7.9 g/dL 06/16/2024 4:59 AM EDT [facility] Albumin, Plasma 2.5(L) 3.5 - 5.2 g/dL 06/16/2024 4:59 AM EDT [facility] AST, Plasma 37(H) 10 - 35 U/L 06/16/2024 4:59 AM EDT [facility] ALT, Plasma 55(H) 10 - 35 U/L 06/16/2024 4:59 AM EDT [facility] Alkaline Phosphatase, Plasma 170(H) 35 - 104 U/L 06/16/2024 4:59 AM EDT [facility] Total Bilirubin, Plasma 0.3 0.2 - 1.1 mg/dL 06/16/2024 4:59 AM EDT [facility] eGFRcr 108.1 mL/min/1.7 3m*2 06/16/2024 4:59 AM EDT [facility] Comment:Reported eGFRcr in m L/min/1.73m2 is based the CKD-EPI 2020 equation that does not use a race coefficient. Blood Venous blood specimen / Unknown Venipuncture / Unknown 06/16/2024 4:07 AM EDT 06/16/2024 4:29 AM EDT Trinity Yousif APRN LAB BLOOD ORDERABLES Final Res ult [facility] [address] [place] [address] * (ABNORMAL) Hemogram (CBC) (06/16/2024 4:07 AM EDT) WBC Count 9.35 3.70 - 10.30 10*3/uL LAB HEMATOLOGY METHOD 06/16/2024 4:37 AM EDT [facility] RBC Count 3.36(L) 3.90 - 5.20 10*6/uL LAB HEMATOLOGY METHOD 06/16/2024 4:37 AM EDT [facility] HGB 10.2(L) 11.2 - 15.7 g/dL LAB HEMATOLOGY METHOD 06/16/2024 4:37 AM EDT [facility] HCT 30.1(L) 34.0 - 45.0 % LAB HEMATOLOGY METHOD 06/16/2024 4:37 AM EDT [facility] Platelet Count 470(H) 155 - 369 10*3/uL LAB HEMATOLOGY METHOD 06/16/2024 4:37 AM EDT [facility] MCV 90 79 - 98 fL LAB HEMATOLOGY METHOD 06/16/2024 4:37 AM EDT [facility] MCH 30.4 26.0 - 32.0 pg LAB HEMATOLOGY METHOD 06/16/2024 4:37 AM EDT [facility] MCHC 33.9 30.7 - 35.5 g/dL LAB HEMATOLOGY METHOD 06/16/2024 4:37 AM EDT [facility] RDW 14.9(H) 11.5 - 14.5 % LAB HEMATOLOGY METHOD 06/16/2024 4:37 AM EDT [facility] MPV 9.0 8.8 - 12.5 fL LAB HEMATOLOGY METHOD 06/16/2024 4:37 AM EDT [facility] nRBC 0.0 <=0.0 per 100 WBCs LAB HEMATOLOGY METHOD 06/16/2024 4:37 AM EDT [facility] Blood Venous blood specimen / Unknown Venipuncture / Unknown 06/16/2024 4:07 AM EDT 06/16/2024 4:28 AM EDT us Trinity Yousif [employer] LAB BLOOD ORDERABLES Final Res ult [facility] [address] [place] [address] * XR Hip Right 2 or 3 [...] Sim Powers MD on 06/15/2024 10:23 AM us Trinity Yousif [employer] IMG XR PROCEDURES Final Result * XR [...] signing this report, I, the attending physician, yolathat I have personally reviewed the images/data for the aboveexamination(s) and agree with the final edited report. Drafted by Db Rodríguez MD on 06/15/2024 10:07 AM Final report signed by Pb Yadav MD on 06/15/2024 10:38 AM Trinity Yousif APRN IMG XR PROCEDURES Final Result * (ABNORMAL) Prealbumin (06/15/2024 4:49 AM EDT) Prealbumin, Plasma 13.3(L) 20.0 - 41.0 mg/dL 06/15/2024 8:27 AM EDT [facility] Blood Venous blood specimen / Unknown Venipuncture / Unknown 06/15/2024 4:49 AM EDT 06/15/2024 5:28 AM EDT Trinity Yousif APRN LAB BLOOD ORDERABLES Final Res ult Performing Organization Address City/[facility]/ZIP Co de Phone Number [facility] [address] [place] [address] * (ABNORMAL) Magnesium (06/15/2024 4:49 AM EDT) Magnesium, Plasma 1.4(L) 1.9 - 2.4 mg/dL 06/15/2024 6:00 AM EDT [facility] Blood Venous blood specimen / Unknown Venipuncture / Unknown 06/15/2024 4:49 AM EDT 06/15/2024 5:28 AM EDT Uriah PHILLIP LAB BLOOD ORDERABLES Final Result Performing Organization Address City/[facility]/ZIP Co de Phone Number [facility] [address] [place] [address] * (ABNORMAL) Comprehensive metabolic panel (06/15/2024 4:49 AM EDT) Glucose, Plasma 100(H) 74 - 99 mg/dL 06/15/2024 6:00 AM EDT [facility] BUN, Plasma 10 7 - 21 mg/dL 06/15/2024 6:00 AM EDT [facility] Creatinine, Plasma 0.58(L) 0.60 - 1.10 mg/dL 06/15/2024 6:00 AM EDT [facility] BUN/Creatinine Ratio 17 06/15/2024 6:00 AM EDT [facility] Sodium, Plasma 128(L) 136 - 145 mmol/L 06/15/2024 6:00 AM EDT [facility] Potassium, Plasma 3.8 3.6 - 4.9 mmol/L 06/15/2024 6:00 AM EDT [facility] Chloride, Plasma 95(L) 97 - 107 mmol/L 06/15/2024 6:00 AM EDT [facility] CO2, Plasma 25 22 - 29 mmol/L 06/15/2024 6:00 AM EDT [facility] Anion Gap 8 6 - 16 mmol/L 06/15/2024 6:00 AM EDT [facility] Total Calcium, Plasma 8.0(L) 8.9 - 10.2 mg/dL 06/15/2024 6:00 AM T [facility] Total Protein 6.4 6.3 - 7.9 g/dL 06/15/2024 6:00 AM EDT [facility] Albumin, Plasma 2.5(L) 3.5 - 5.2 g/dL 06/15/2024 6:00 AM EDT [facility] AST, Plasma 32 10 - 35 U/L 06/15/2024 6:00 AM EDT [facility] ALT, Plasma 59(H) 10 - 35 U/L 06/15/2024 6:00 AM EDT [facility] Alkaline Phosphatase, Plasma 181(H) 35 - 104 U/L 06/15/2024 6:00 AM EDT [facility] Total Bilirubin, Plasma 0.3 0.2 - 1.1 mg/dL 06/15/2024 6:00 AM EDT [facility] eGFRcr 107.7 mL/min/1.7 3m*2 06/15/2024 6:00 AM EDT [facility] Comment:Reported eGFRcr in m L/min/1.73m2 is based the CKD-EPI 2020 equation that does not use a race coefficient. Blood Venous blood specimen / Unknown Venipuncture / Unknown 06/15/2024 4:49 AM EDT 06/15/2024 5:28 AM EDT Uriah PHILLIP LAB BLOOD ORDERABLES Final Result [facility] [address] [place] [address] * (ABNORMAL) CBC W/O Differential (06/15/2024 4:49 AM EDT) WBC Count 15.65(H) 3.70 - 10.30 10*3/uL LAB HEMATOLOGY METHOD 06/15/2024 5:40 AM EDT [facility] RBC Count 3.49(L) 3.90 - 5.20 10*6/uL LAB HEMATOLOGY METHOD 06/15/2024 5:40 AM EDT [facility] HGB 10.3(L) 11.2 - 15.7 g/dL LAB HEMATOLOGY METHOD 06/15/2024 5:40 AM EDT [facility] HCT 31.8(L) 34.0 - 45.0 % LAB HEMATOLOGY METHOD 06/15/2024 5:40 AM EDT [facility] Platelet Count 437(H) 155 - 369 10*3/uL LAB HEMATOLOGY METHOD 06/15/2024 5:40 AM EDT [facility] MCV 91 79 - 98 fL LAB HEMATOLOGY METHOD 06/15/2024 5:40 AM EDT [facility] MCH 29.5 26.0 - 32.0 pg LAB HEMATOLOGY METHOD 06/15/2024 5:40 AM EDT [facility] MCHC 32.4 30.7 - 35.5 g/dL LAB HEMATOLOGY METHOD 06/15/2024 5:40 AM EDT [facility] RDW 15.0(H) 11.5 - 14.5 % LAB HEMATOLOGY METHOD 06/15/2024 5:40 AM EDT [facility] MPV 9.3 8.8 - 12.5 fL LAB HEMATOLOGY METHOD 06/15/2024 5:40 AM EDT [facility] nRBC 0.0 <=0.0 per 100 WBCs LAB HEMATOLOGY METHOD 06/15/2024 5:40 AM EDT [facility] Blood Venous blood specimen / Unknown Venipuncture / Unknown 06/15/2024 4:49 AM EDT 06/15/2024 5:33 AM EDT us Uriah PHILLIP LAB BLOOD ORDERABLES Final Result [facility] [address] [place] [address] * CT Head wo IV Contrast (06/14/2024 [...] MD on 06/15/2024 8:12 AM Uriah PHILLIP [facility] CT PROCEDURES Final Res ult * (ABNORMAL) Blood gas panel, venous (06/14/2024 12:58 AM EDT) pH, Venous 7.42 7.32 - 7.43 LAB HEMATOLOGY METHOD 06/14/2024 1:14 AM EDT [facility] pCO2, Venous 46 37 - 52 mmHg LAB HEMATOLOGY METHOD 06/14/2024 1:14 AM EDT [facility] pO2, Venous 36 25 - 40 mmHg LAB HEMATOLOGY METHOD 06/14/2024 1:14 AM EDT [facility] SO2, Measured, Venous 66 65 - 80 % LAB HEMATOLOGY METHOD 06/14/2024 1:14 AM EDT [facility] Base Excess, Venous 4.7(H) -2.0 - 3.0 mmol/L LAB HEMATOLOGY METHOD 06/14/2024 1:14 AM EDT [facility] Bicarbonate, Calculated, Venous 30(H) 22 - 26 mmol/L LAB HEMATOLOGY METHOD 06/14/2024 1:14 AM EDT [facility] Hematocrit, Whole Blood 33.3(L) 34.0 - 45.0 % LAB HEMATOLOGY METHOD 06/14/2024 1:14 AM EDT [facility] Sodium, Whole Blood 129(L) 136 - 145 mmol/L LAB HEMATOLOGY METHOD 06/14/2024 1:14 AM EDT [facility] Potassium, Whole Blood 3.6 3.6 - 4.9 mmol/L LAB HEMATOLOGY METHOD 06/14/2024 1:14 AM EDT [facility] Chloride, Whole Blood 93(L) 97 - 107 mmol/L LAB HEMATOLOGY METHOD 06/14/2024 1:14 AM EDT [facility] Glucose, Whole Blood 106(H) 74 - 99 mg/dL LAB HEMATOLOGY METHOD 06/14/2024 1:14 AM EDT [facility] Lactate, Venous, Whole Blood 0.7 0.5 - 2.2 mmol/L LAB HEMATOLOGY METHOD 06/14/2024 1:14 AM EDT [facility] Ionized Calcium, Whole Blood 4.6 4.6 - 5.1 mg/dL LAB HEMATOLOGY METHOD 06/14/2024 1:14 AM EDT [facility] Blood Venous blood specimen / Unknown (Central Line) Existing Catheter / Unknown 06/14/2024 12:58 AM EDT 06/14/2024 1:13 AM EDT us Maite Austin MD LAB BLOOD ORDERABLES Final Resu lt [facility] [address] [place] [address] * (ABNORMAL) CBC W/O Differential (06/14/2024 12:58 AM EDT) WBC Count 21.20(H) 3.70 - 10.30 10*3/uL LAB HEMATOLOGY METHOD 06/14/2024 1:21 AM EDT [facility] RBC Count 3.79(L) 3.90 - 5.20 10*6/uL LAB HEMATOLOGY METHOD 06/14/2024 1:21 AM EDT [facility] HGB 11.1(L) 11.2 - 15.7 g/dL LAB HEMATOLOGY METHOD 06/14/2024 1:21 AM EDT [facility] HCT 33.6(L) 34.0 - 45.0 % LAB HEMATOLOGY METHOD 06/14/2024 1:21 AM EDT [facility] Platelet Count 433(H) 155 - 369 10*3/uL LAB HEMATOLOGY METHOD 06/14/2024 1:21 AM EDT [facility] MCV 89 79 - 98 fL LAB HEMATOLOGY METHOD 06/14/2024 1:21 AM EDT [facility] MCH 29.3 26.0 - 32.0 pg LAB HEMATOLOGY METHOD 06/14/2024 1:21 AM EDT [facility] MCHC 33.0 30.7 - 35.5 g/dL LAB HEMATOLOGY METHOD 06/14/2024 1:21 AM EDT [facility] RDW 14.8(H) 11.5 - 14.5 % LAB HEMATOLOGY METHOD 06/14/2024 1:21 AM EDT [facility] MPV 8.9 8.8 - 12.5 fL LAB HEMATOLOGY METHOD 06/14/2024 1:21 AM EDT [facility] nRBC 0.0 <=0.0 per 100 WBCs LAB HEMATOLOGY METHOD 06/14/2024 1:21 AM EDT [facility] Blood Blood sample taken from central line / Unknown (Central Line) Existing Catheter / Unknown 06/14/2024 12:58 AM EDT 06/14/2024 1:13 AM EDT Uriah PHILLIP LAB BLOOD ORDERABLES Final Result [facility] [address] [place] [address] * (ABNORMAL) Comprehensive metabolic panel (06/14/2024 12:58 AM EDT) Glucose, Plasma 105(H) 74 - 99 mg/dL 06/14/2024 1:43 AM EDT [facility] BUN, Plasma 13 7 - 21 mg/dL 06/14/2024 1:43 AM EDT [facility] Creatinine, Plasma 0.51(L) 0.60 - 1.10 mg/dL 06/14/2024 1:43 AM EDT [facility] BUN/Creatinine Ratio 25 06/14/2024 1:43 AM EDT [facility] Sodium, Plasma 130(L) 136 - 145 mmol/L 06/14/2024 1:43 AM EDT [facility] Potassium, Plasma 3.7 3.6 - 4.9 mmol/L 06/14/2024 1:43 AM EDT [facility] Chloride, Plasma 94(L) 97 - 107 mmol/L 06/14/2024 1:43 AM EDT [facility] CO2, Plasma 26 22 - 29 mmol/L 06/14/2024 1:43 AM EDT [facility] Anion Gap 10 6 - 16 mmol/L 06/14/2024 1:43 AM EDT [facility] Total Calcium, Plasma 8.5(L) 8.9 - 10.2 mg/dL 06/14/2024 1:43 AM EDT [facility] Total Protein 7.0 6.3 - 7.9 g/dL 06/14/2024 1:43 AM EDT [facility] Albumin, Plasma 2.7(L) 3.5 - 5.2 g/dL 06/14/2024 1:43 AM EDT [facility] AST, Plasma 36(H) 10 - 35 U/L 06/14/2024 1:43 AM EDT [facility] ALT, Plasma 79(H) 10 - 35 U/L 06/14/2024 1:43 AM EDT [facility] Alkaline Phosphatase, Plasma 216(H) 35 - 104 U/L 06/14/2024 1:43 AM EDT [facility] Total Bilirubin, Plasma 0.3 0.2 - 1.1 mg/dL 06/14/2024 1:43 AM EDT [facility] eGFRcr 111.1 mL/min/1.7 3m*2 06/14/2024 1:43 AM EDT [facility] Comment:Reported eGFRcr in m L/min/1.73m2 is based the CKD-EPI 2020 equation that does not use a race coefficient. Blood Blood sample taken from central line / Unknown (Central Line) Existing Catheter / Unknown 06/14/2024 12:58 AM EDT 06/14/2024 1:13 AM EDT Uriah PHILLIP LAB BLOOD ORDERABLES Final Result Performing Organization Address [facility]/ZIP Co de Phone Number [facility] [address] [place] [address] * (ABNORMAL) Magnesium (06/14/2024 12:58 AM EDT) Pathologist [facility] Magnesium, Plasma 1.5(L) 1.9 - 2.4 mg/dL 06/14/2024 1:43 AM EDT [facility] Blood Blood sample taken from central line / Unknown (Central Line) Existing Catheter / Unknown 06/14/2024 12:58 AM EDT 06/14/2024 1:13 AM EDT Trinity Yousif APRN LAB BLOOD ORDERABLES Final Res ult Performing Organization Address [facility] Co de Phone Number [facility] [address] [place] [address] * (ABNORMAL) CBC W/O Differential (06/13/2024 12:40 AM EDT) WBC Count 14.79(H) 3.70 - 10.30 10*3/uL LAB HEMATOLOGY METHOD 06/13/2024 1:03 AM EDT [facility] RBC Count 3.35(L) 3.90 - 5.20 10*6/uL LAB HEMATOLOGY METHOD 06/13/2024 1:03 AM EDT [facility] HGB 9.8(L) 11.2 - 15.7 g/dL LAB HEMATOLOGY METHOD 06/13/2024 1:03 AM EDT [facility] HCT 30.5(L) 34.0 - 45.0 % LAB HEMATOLOGY METHOD 06/13/2024 1:03 AM EDT [facility] Platelet Count 409(H) 155 - 369 10*3/uL LAB HEMATOLOGY METHOD 06/13/2024 1:03 AM EDT [facility] MCV 91 79 - 98 fL LAB HEMATOLOGY METHOD 06/13/2024 1:03 AM EDT [facility] MCH 29.3 26.0 - 32.0 pg LAB HEMATOLOGY METHOD 06/13/2024 1:03 AM EDT [facility] MCHC 32.1 30.7 - 35.5 g/dL LAB HEMATOLOGY METHOD 06/13/2024 1:03 AM EDT [facility] RDW 15.0(H) 11.5 - 14.5 % LAB HEMATOLOGY METHOD 06/13/2024 1:03 AM EDT [facility] MPV 9.0 8.8 - 12.5 fL LAB HEMATOLOGY METHOD 06/13/2024 1:03 AM EDT [facility] nRBC 0.0 <=0.0 per 100 WBCs LAB HEMATOLOGY METHOD 06/13/2024 1:03 AM EDT [facility] Blood Blood sample taken from central line / Unknown (Central Line) Existing Catheter / Unknown 06/13/2024 12:40 AM EDT 06/13/2024 12:54 AM EDT us Uriah PHILLIP LAB BLOOD ORDERABLES Final Result [facility] [address] [place] [address] * (ABNORMAL) Comprehensive metabolic panel (06/13/2024 12:40 AM EDT) Glucose, Plasma 106(H) 74 - 99 mg/dL 06/13/2024 1:31 AM EDT [facility] BUN, Plasma 6(L) 7 - 21 mg/dL 06/13/2024 1:31 AM EDT [facility] Creatinine, Plasma 0.54(L) 0.60 - 1.10 mg/dL 06/13/2024 1:31 AM EDT [facility] BUN/Creatinine Ratio 11 06/13/2024 1:31 AM EDT [facility] Sodium, Plasma 131(L) 136 - 145 mmol/L 06/13/2024 1:31 AM EDT [facility] Potassium, Plasma 4.0 3.6 - 4.9 mmol/L 06/13/2024 1:31 AM EDT [facility] Chloride, Plasma 96(L) 97 - 107 mmol/L 06/13/2024 1:31 AM EDT [facility] CO2, Plasma 25 22 - 29 mmol/L 06/13/2024 1:31 AM EDT [facility] Anion Gap 10 6 - 16 mmol/L 06/13/2024 1:31 AM EDT [facility] Total Calcium, Plasma 8.0(L) 8.9 - 10.2 mg/dL 06/13/2024 1:31 AM EDT [facility] Total Protein 6.5 6.3 - 7.9 g/dL 06/13/2024 1:31 AM EDT [facility] Albumin, Plasma 2.6(L) 3.5 - 5.2 g/dL 06/13/2024 1:31 AM EDT [facility] AST, Plasma 52(H) 10 - 35 U/L 06/13/2024 1:31 AM EDT [facility] ALT, Plasma 99(H) 10 - 35 U/L 06/13/2024 1:31 AM EDT [facility] Alkaline Phosphatase, Plasma 212(H) 35 - 104 U/L 06/13/2024 1:31 AM EDT [facility] Total Bilirubin, Plasma 0.3 0.2 - 1.1 mg/dL 06/13/2024 1:31 AM EDT [facility] eGFRcr 109.6 mL/min/1.7 3m*2 06/13/2024 1:31 AM EDT [facility] Comment:Reported eGFRcr in m L/min/1.73m2 is based the CKD-EPI 2020 equation that does not use a race coefficient. Blood Blood sample taken from central line / Unknown (Central Line) Existing Catheter / Unknown 06/13/2024 12:40 AM EDT 06/13/2024 12:53 AM EDT us Uriah PHILLIP LAB BLOOD ORDERABLES Final Result [facility] [address] [place] [address] * (ABNORMAL) CBC and differential (06/12/2024 3:24 AM EDT) WBC Count 10.53(H) 3.70 - 10.30 10*3/uL LAB HEMATOLOGY METHOD 06/12/2024 3:43 AM EDT [facility] RBC Count 3.17(L) 3.90 - 5.20 10*6/uL LAB HEMATOLOGY METHOD 06/12/2024 3:43 AM EDT [facility] HGB 9.3(L) 11.2 - 15.7 g/dL LAB HEMATOLOGY METHOD 06/12/2024 3:43 AM EDT [facility] HCT 29.4(L) 34.0 - 45.0 % LAB HEMATOLOGY METHOD 06/12/2024 3:43 AM EDT [facility] Platelet Count 393(H) 155 - 369 10*3/uL LAB HEMATOLOGY METHOD 06/12/2024 3:43 AM EDT [facility] MCV 93 79 - 98 fL LAB HEMATOLOGY METHOD 06/12/2024 3:43 AM EDT [facility] MCH 29.3 26.0 - 32.0 pg LAB HEMATOLOGY METHOD 06/12/2024 3:43 AM EDT [facility] MCHC 31.6 30.7 - 35.5 g/dL LAB HEMATOLOGY METHOD 06/12/2024 3:43 AM EDT [facility] RDW 15.2(H) 11.5 - 14.5 % LAB HEMATOLOGY METHOD 06/12/2024 3:43 AM EDT [facility] MPV 9.1 8.8 - 12.5 fL LAB HEMATOLOGY METHOD 06/12/2024 3:43 AM EDT [facility] nRBC 0.0 <=0.0 per 100 WBCs LAB HEMATOLOGY METHOD 06/12/2024 3:43 AM EDT [facility] Differential Type Automated LAB HEMATOLOGY METHOD 06/12/2024 3:43 AM EDT [facility] Neutrophils % 54 % LAB HEMATOLOGY METHOD 06/12/2024 3:43 AM EDT [facility] Lymphocytes % 28 % LAB HEMATOLOGY METHOD 06/12/2024 3:43 AM EDT [facility] Monocytes % 11 % LAB HEMATOLOGY METHOD 06/12/2024 3:43 AM EDT [facility] Eosinophils % 2 % LAB HEMATOLOGY METHOD 06/12/2024 3:43 AM EDT [facility] Basophils % 1 % LAB HEMATOLOGY METHOD 06/12/2024 3:43 AM EDT [facility] Immature Granulocytes % 4 % LAB HEMATOLOGY METHOD 06/12/2024 3:43 AM EDT [facility] Neutrophils Absolute 5.65 1.60 - 6.10 10*3/uL LAB HEMATOLOGY METHOD 06/12/2024 3:43 AM EDT [facility] Lymphocytes Absolute 2.99 1.20 - 3.90 10*3/uL LAB HEMATOLOGY METHOD 06/12/2024 3:43 AM EDT [facility] Monocytes Absolute 1.11(H) 0.30 - 0.90 10*3/uL LAB HEMATOLOGY METHOD 06/12/2024 3:43 AM EDT [facility] Eosinophils Absolute 0.25 0.00 - 0.50 10*3/uL LAB HEMATOLOGY METHOD 06/12/2024 3:43 AM EDT [facility] Basophils Absolute 0.13(H) 0.00 - 0.10 10*3/uL LAB HEMATOLOGY METHOD 06/12/2024 3:43 AM EDT [facility] Immature Granulocytes Absolute 0.40(H) 0.00 - 0.06 10*3/uL LAB HEMATOLOGY METHOD 06/12/2024 3:43 AM EDT [facility] Blood Blood sample taken from central line / Unknown (Central Line) Existing Catheter / Unknown 06/12/2024 3:24 AM EDT 06/12/2024 3:34 AM EDT [facility] - 06/12/2024 3:43 AM EDT Therapeutic decision making should be based on absolute values, rather than percentages. us Uriah PHILLIP LAB BLOOD ORDERABLES Final Result [facility] [address] [place] [address] * (ABNORMAL) Comprehensive metabolic panel (06/12/2024 3:24 AM EDT) [facility] Glucose, Plasma 93 74 - 99 mg/dL 06/12/2024 4:01 AM EDT [facility] BUN, Plasma 12 7 - 21 mg/dL 06/12/2024 4:01 AM EDT [facility] Creatinine, Plasma 0.59(L) 0.60 - 1.10 mg/dL 06/12/2024 4:01 AM EDT [facility] BUN/Creatinine Ratio 20 06/12/2024 4:01 AM EDT [facility] Sodium, Plasma 129(L) 136 - 145 mmol/L 06/12/2024 4:01 AM EDT [facility] Potassium, Plasma 3.8 3.6 - 4.9 mmol/L 06/12/2024 4:01 AM EDT [facility] Chloride, Plasma 95(L) 97 - 107 mmol/L 06/12/2024 4:01 AM EDT [facility] CO2, Plasma 27 22 - 29 mmol/L 06/12/2024 4:01 AM EDT [facility] Anion Gap 7 6 - 16 mmol/L 06/12/2024 4:01 AM EDT [facility] Total Calcium, Plasma 8.1(L) 8.9 - 10.2 mg/dL 06/12/2024 4:01 AM EDT [facility] Total Protein 6.3 6.3 - 7.9 g/dL 06/12/2024 4:01 AM EDT [facility] Albumin, Plasma 2.5(L) 3.5 - 5.2 g/dL 06/12/2024 4:01 AM EDT [facility] AST, Plasma 58(H) 10 - 35 U/L 06/12/2024 4:01 AM EDT [facility] ALT, Plasma 106(H) 10 - 35 U/L 06/12/2024 4:01 AM EDT [facility] Alkaline Phosphatase, Plasma 229(H) 35 - 104 U/L 06/12/2024 4:01 AM EDT [facility] Total Bilirubin, Plasma 0.3 0.2 - 1.1 mg/dL 06/12/2024 4:01 AM EDT [facility] eGFRcr 107.3 mL/min/1.7 3m*2 06/12/2024 4:01 AM EDT [facility] Comment:Reported eGFRcr in m L/min/1.73m2 is based the CKD-EPI 2020 equation that does not use a race coefficient. Blood Blood sample taken from central line / Unknown (Central Line) Existing Catheter / Unknown 06/12/2024 3:24 AM EDT 06/12/2024 3:33 AM EDT us Uriah PHILLIP LAB BLOOD ORDERABLES Final Result [facility] [address] [place] [address] * XR Abdomen 1 View (06/11/2024 8:34 [...] LAB HEMATOLOGY METHOD 06/11/2024 8:40 AM EDT [facility] Neutrophils % 63 % LAB HEMATOLOGY METHOD 06/11/2024 8:40 AM EDT [facility] Lymphocytes % 23 % LAB HEMATOLOGY METHOD 06/11/2024 8:40 AM EDT [facility] Monocytes % 8 % LAB HEMATOLOGY METHOD 06/11/2024 8:40 AM EDT [facility] Eosinophils % 2 % LAB HEMATOLOGY METHOD 06/11/2024 8:40 AM EDT [facility] Basophils % 1 % LAB HEMATOLOGY METHOD 06/11/2024 8:40 AM EDT [facility] Immature Granulocytes % 3 % LAB HEMATOLOGY METHOD 06/11/2024 8:40 AM EDT [facility] Immature Granulocytes Absolute 0.43(H) 0.00 - 0.06 10*3/uL LAB HEMATOLOGY METHOD 06/11/2024 8:40 AM EDT [facility] Neutrophils Absolute 10.15(H) 1.60 - 6.10 10*3/uL LAB HEMATOLOGY METHOD 06/11/2024 8:40 AM EDT [facility] Lymphocytes Absolute 3.53 1.20 - 3.90 10*3/uL LAB HEMATOLOGY METHOD 06/11/2024 8:40 AM EDT [facility] Monocytes Absolute 1.18(H) 0.30 - 0.90 10*3/uL LAB HEMATOLOGY METHOD 06/11/2024 8:40 AM EDT [facility] Basophils Absolute 0.15(H) 0.00 - 0.10 10*3/uL LAB HEMATOLOGY METHOD 06/11/2024 8:40 AM EDT [facility] Eosinophils Absolute 0.25 0.00 - 0.50 10*3/uL LAB HEMATOLOGY METHOD 06/11/2024 8:40 AM EDT [facility] Blood Venous blood specimen / Unknown 06/11/2024 4:32 AM EDT 06/11/2024 4:32 AM EDT Uriah PHILLIP LAB BLOOD ORDERABLES Final Result Performing Organization Address City/State/[facility] Co de Phone Number [facility] [address] [place] [address] * (ABNORMAL) Procalcitonin (06/11/2024 4:32 AM EDT) Procalcitonin, Plasma 0.10(H) <0.09 ng/mL 06/11/2024 8:43 AM EDT [facility] Blood Venous blood specimen / Unknown 06/11/2024 4:32 AM EDT 06/11/2024 4:32 AM EDT Narrative [facility] - 06/11/2024 8:43 AM EDT Procalcitonin [...] predict 28 day mortality risk. Please consult [email or web address] for more information. Test performed at [facility], [facility]. us Uriah PHILLIP LAB BLOOD ORDERABLES Final Result Performing Organization Address [facility] Co de Phone Number [facility] [address] [place] [address] * Lavender Top (06/11/2024 4:32 AM EDT) Pathologist [facility] Extra Hold for add-ons 06/11/2024 7:02 AM EDT [facility] Comment:Auto resulted. Blood Venous blood specimen / Unknown 06/11/2024 4:32 AM EDT 06/11/2024 4:32 AM EDT us Maite Austin MD LAB BLOOD ORDERABLES Final Resu lt Performing Organization Address [facility]/State/ZIP Co de Phone Number [facility] [address] [place] [address] * Light Green Top (06/11/2024 4:32 AM EDT) Pathologist [facility] Extra Hold for add-ons 06/11/2024 7:02 AM EDT [facility] Comment:Auto resulted. Blood Venous blood specimen / Unknown 06/11/2024 4:32 AM EDT 06/11/2024 4:32 AM EDT us Maite Austin MD LAB BLOOD ORDERABLES Final Resu lt Performing Organization Address City/[facility]/ZIP Co de Phone Number [facility] [address] [place] [address] * POCT glucose meter (06/10/2024 5:56 AM EDT) [facility] POCT Glucose 91 74 - 99 mg/dL [...] for testing. Comment 06/10/2024 7:29 AM EDT [facility] Hot Plate [employer]wood Press Offbearer ID Yakybets, Valerie 06/10/2024 7:29 AM EDT [facility] Device ID [id number] 06/10/2024 7:29 AM EDT [facility] Specimen Type POC Capillary 06/10/2024 7:29 AM EDT [facility] Blood Capillary blood specimen / Unknown 06/10/2024 5:56 AM EDT 06/10/2024 7:29 AM EDT us Maite Austin MD LAB POINT OF CARE TE ST DOCKED DEVICE UNSOLICITED RESULTS Final Result Performing Organization Address City/[facility]/ZIP Co de Phone Number [facility] [address] [place] [address] * POCT glucose meter (06/10/2024 5:09 AM EDT) [facility] POCT Glucose 78 74 - 99 mg/dL [...] Comment 06/10/2024 5:10 AM EDT [facility] Hot Plate [employer] Press Offbearer ID Katelyn Parker 025 5:10 AM EDT [facility]ALTH[facility] Device ID [id number] 06/10/2024 5:10 AM EDT [facility] Specimen Type POC Capillary 06/10/2024 5:10 AM EDT [facility] Blood Capillary blood specimen / Unknown 06/10/2024 5:09 AM EDT 06/10/2024 5:10 AM EDT us Maite Austin MD LAB POINT OF CARE TE ST DOCKED DEVICE UNSOLICITED RESULTS Final Result [facility] [address] [place] [address] * (ABNORMAL) Comprehensive Metabolic Panel, Plasma (06/10/2024 4:28 AM EDT) [facility] Glucose, Plasma 76 74 - 99 mg/dL 06/10/2024 6:10 AM EDT [facility] BUN, Plasma 9 7 - 21 mg/dL 06/10/2024 6:10 AM EDT [facility] Creatinine, Plasma 0.53(L) 0.60 - 1.10 mg/dL 06/10/2024 6:10 AM EDT [facility] BUN/Creatinine Ratio 17 06/10/2024 6:10 AM EDT [facility] Sodium, Plasma 131(L) 136 - 145 mmol/L 06/10/2024 6:10 AM EDT [facility] Potassium, Plasma 4.1 3.6 - 4.9 mmol/L 06/10/2024 6:10 AM EDT [facility] Chloride, Plasma 97 97 - 107 mmol/L 06/10/2024 6:10 AM EDT [facility] CO2, Plasma 26 22 - 29 mmol/L 06/10/2024 6:10 AM EDT [facility] Anion Gap 8 6 - 16 mmol/L 06/10/2024 6:10 AM EDT [facility] Total Calcium, Plasma 8.4(L) 8.9 - 10.2 mg/dL 06/10/2024 6:10 AM EDT [facility] Total Protein 6.7 6.3 - 7.9 g/dL 06/10/2024 6:10 AM EDT [facility] Albumin, Plasma 2.7(L) 3.5 - 5.2 g/dL 06/10/2024 6:10 AM EDT [facility] AST, Plasma 80(H) 10 - 35 U/L 06/10/2024 6:10 AM EDT [facility] ALT, Plasma 122(H) 10 - 35 U/L 06/10/2024 6:10 AM EDT [facility] Alkaline Phosphatase, Plasma 258(H) 35 - 104 U/L 06/10/2024 6:10 AM EDT [facility] Total Bilirubin, Plasma 0.3 0.2 - 1.1 mg/dL 06/10/2024 6:10 AM EDT [facility] eGFRcr 110.1 mL/min/1.7 3m*2 06/10/2024 6:10 AM EDT [facility] Comment:Reported eGFRcr in m L/min/1.73m2 is based the CKD-EPI 2020 equation that does not use a race coefficient. Blood Venous blood specimen / Unknown Venipuncture / Unknown 06/10/2024 4:28 AM EDT 06/10/2024 5:41 AM EDT us Dulce Alamo APRN LAB BLOOD ORDERABLES Final R esult [facility] [address] [place] [address] * (ABNORMAL) Magnesium, Plasma (06/10/2024 4:28 AM EDT) Magnesium, Plasma 1.8(L) 1.9 - 2.4 mg/dL 06/10/2024 6:10 AM EDT [facility] Blood Venous blood specimen / Unknown Venipuncture / Unknown 06/10/2024 4:28 AM EDT 06/10/2024 5:41 AM EDT us Dulce Alamo [employer] LAB BLOOD ORDERABLES Final R esult [facility] [address] [place] [address] * (ABNORMAL) CBC W/O Differential (06/10/2024 4:28 AM EDT) Pathologist [facility] WBC Count 20.16(H) 3.70 - 10.30 10*3/uL LAB HEMATOLOGY METHOD 06/10/2024 5:54 AM EDT [facility] RBC Count 3.43(L) 3.90 - 5.20 10*6/uL LAB HEMATOLOGY METHOD 06/10/2024 5:54 AM EDT [facility] HGB 10.2(L) 11.2 - 15.7 g/dL LAB HEMATOLOGY METHOD 06/10/2024 5:54 AM EDT [facility] HCT 32.0(L) 34.0 - 45.0 % LAB HEMATOLOGY METHOD 06/10/2024 5:54 AM EDT [facility] Platelet Count 478(H) 155 - 369 10*3/uL LAB HEMATOLOGY METHOD 06/10/2024 5:54 AM EDT [facility] MCV 93 79 - 98 fL LAB HEMATOLOGY METHOD 06/10/2024 5:54 AM EDT [facility] MCH 29.7 26.0 - 32.0 pg LAB HEMATOLOGY METHOD 06/10/2024 5:54 AM EDT [facility] MCHC 31.9 30.7 - 35.5 g/dL LAB HEMATOLOGY METHOD 06/10/2024 5:54 AM EDT [facility] RDW 15.6(H) 11.5 - 14.5 % LAB HEMATOLOGY METHOD 06/10/2024 5:54 AM EDT [facility] MPV 9.2 8.8 - 12.5 fL LAB HEMATOLOGY METHOD 06/10/2024 5:54 AM EDT [facility] nRBC 0.0 <=0.0 per 100 WBCs LAB HEMATOLOGY METHOD 06/10/2024 5:54 AM EDT [facility] Blood Venous blood specimen / Unknown Venipuncture / Unknown 06/10/2024 4:28 AM EDT 06/10/2024 5:43 AM EDT us Dulce Alamo APRN LAB BLOOD ORDERABLES Final R esult Performing Organization Address City/[facility]/ZIP Co de Phone Number [facility] [address] [place] [address] * POCT glucose meter (06/09/2024 5:22 PM EDT) [facility] POCT Glucose 98 74 - 99 mg/dL 06/09/2024 7:33 PM EDT [facility] Comment:Accuracy of [...] Comment 06/09/2024 7:33 PM EDT [facility] Hot Plate [employer]wood Press Offbearer ID Yonyn Urbano 7:33 PM EDT [facility] Device ID [id number] 06/09/2024 7:33 PM EDT [facility] Specimen Type POC Capillary 06/09/2024 7:33 PM EDT [facility] Blood Capillary blood specimen / Unknown 06/09/2024 5:22 PM EDT 06/09/2024 7:33 PM EDT us Maite Austin MD LAB POINT OF CARE TE ST DOCKED DEVICE UNSOLICITED RESULTS Final Result Performing Organization Address City/[facility]/ZIP Co de Phone Number [facility] [address] [place] [address] * (ABNORMAL) POCT glucose meter (06/09/2024 12:19 [...] Comment 06/09/2024 12:22 PM EDT [facility] Hot Plate [employer] Press Offbearer ID Yonny Urbano 12:22 PM EDT [facility] Device ID [id number] 06/09/2024 12:22 PM EDT [facility] Specimen Type POC Capillary 06/09/2024 12:22 PM EDT [facility] Blood Capillary blood specimen / Unknown 06/09/2024 12:19 PM EDT 06/09/2024 12:22 PM EDT Maite Austin MD LAB POINT OF CARE TE ST DOCKED DEVICE UNSOLICITED RESULTS Final Result [facility] [address] [place] [address] * XR Chest 1 View (06/09/2024 6:54 [...] on 06/09/2024 10:12 AM us Dulce Alamo [employer] IMG XR PROCEDURES Final Resu lt * (ABNORMAL) POCT glucose meter (06/09/2024 6:33 AM EDT) [facility] POCT Glucose 124(H) 74 - 99 mg/dL 06/09/2024 6:35 AM EDT [facility] Comment:Accuracy of a [...] for testing. Comment 06/09/2024 6:35 AM EDT [facility] Hot Plate [employer]wood Press Offbearer ID Brooklyn Goldsmith 06/09/2024 6:35 AM EDT [facility] LAB Device ID [id number] 06/09/2024 6:35 AM EDT [facility] Specimen Type POC Capillary 06/09/2024 6:35 AM EDT [facility] Blood Capillary blood specimen / Unknown 06/09/2024 6:33 AM EDT 06/09/2024 6:35 AM EDT Maite Austin MD LAB POINT OF CARE TE ST DOCKED DEVICE UNSOLICITED RESULTS Final Result [facility] [address] [place] [address] * Magnesium, Plasma (06/09/2024 1:27 AM EDT) [facility] Magnesium, Plasma 1.9 1.9 - 2.4 mg/dL 06/09/2024 2:04 AM EDT [facility] Blood Venous blood specimen / Unknown Venipuncture / Unknown 06/09/2024 1:27 AM EDT 06/09/2024 1:35 AM EDT us Dulce Alamo APRN LAB BLOOD ORDERABLES Final R esult [facility] [address] [place] [address] * (ABNORMAL) Basic Metabolic Panel, Plasma (06/09/2024 1:27 AM EDT) Glucose, Plasma 116(H) 74 - 99 mg/dL 06/09/2024 2:04 AM EDT [facility] BUN, Plasma 11 7 - 21 mg/dL 06/09/2024 2:04 AM EDT [facility] Creatinine, Plasma 0.48(L) 0.60 - 1.10 mg/dL 06/09/2024 2:04 AM EDT [facility] BUN/Creatinine Ratio 23 06/09/2024 2:04 AM EDT [facility] Sodium, Plasma 130(L) 136 - 145 mmol/L 06/09/2024 2:04 AM EDT [facility] Potassium, Plasma 4.3 3.6 - 4.9 mmol/L 06/09/2024 2:04 AM EDT [facility] Chloride, Plasma 98 97 - 107 mmol/L 06/09/2024 2:04 AM EDT [facility] CO2, Plasma 26 22 - 29 mmol/L 06/09/2024 2:04 AM EDT [facility] Anion Gap 6 6 - 16 mmol/L 06/09/2024 2:04 AM EDT [facility] Total Calcium, Plasma 7.9(L) 8.9 - 10.2 mg/dL 06/09/2024 2:04 AM EDT [facility] eGFRcr 112.7 mL/min/1.7 3m*2 06/09/2024 2:04 AM EDT [facility] Comment:Reported eGFRcr in m L/min/1.73m2 is based the CKD-EPI 2020 equation that does not use a race coefficient. Blood Venous blood specimen / Unknown Venipuncture / Unknown 06/09/2024 1:27 AM EDT 06/09/2024 1:35 AM EDT us Dulce Alamo [employer] LAB BLOOD ORDERABLES Final R esult [facility] [address] [place] [address] * (ABNORMAL) CBC W/O Differential (06/09/2024 1:27 AM EDT) WBC Count 12.12(H) 3.70 - 10.30 10*3/uL LAB HEMATOLOGY METHOD 06/09/2024 1:43 AM EDT [facility] RBC Count 3.23(L) 3.90 - 5.20 10*6/uL LAB HEMATOLOGY METHOD 06/09/2024 1:43 AM EDT [facility] HGB 9.4(L) 11.2 - 15.7 g/dL LAB HEMATOLOGY METHOD 06/09/2024 1:43 AM EDT [facility] HCT 29.9(L) 34.0 - 45.0 % LAB HEMATOLOGY METHOD 06/09/2024 1:43 AM EDT [facility] Platelet Count 471(H) 155 - 369 10*3/uL LAB HEMATOLOGY METHOD 06/09/2024 1:43 AM EDT [facility] MCV 93 79 - 98 fL LAB HEMATOLOGY METHOD 06/09/2024 1:43 AM EDT [facility] MCH 29.1 26.0 - 32.0 pg LAB HEMATOLOGY METHOD 06/09/2024 1:43 AM EDT [facility] MCHC 31.4 30.7 - 35.5 g/dL LAB HEMATOLOGY METHOD 06/09/2024 1:43 AM EDT [facility] RDW 15.7(H) 11.5 - 14.5 % LAB HEMATOLOGY METHOD 06/09/2024 1:43 AM EDT [facility] MPV 9.1 8.8 - 12.5 fL LAB HEMATOLOGY METHOD 06/09/2024 1:43 AM EDT [facility] nRBC 0.0 <=0.0 per 100 WBCs LAB HEMATOLOGY METHOD 06/09/2024 1:43 AM EDT [facility] Blood Venous blood specimen / Unknown Venipuncture / Unknown 06/09/2024 1:27 AM EDT 06/09/2024 1:35 AM EDT us Dulce Alamo APRN LAB BLOOD ORDERABLES Final R esult [facility] [address] [place] [address] * (ABNORMAL) POCT glucose meter (06/08/2024 11:28 PM EDT) [facility] POCT Glucose 113(H) 74 - 99 mg/dL [...] Comment 06/08/2024 11:30 PM EDT [facility] Hot Plate [employer] Offbearer ID Brooklyn Goldsmith 06/08/2024 11:30 PM EDT [facility] Device ID [id number] 06/08/2024 11:30 PM EDT [facility] Specimen Type POC Capillary 06/08/2024 11:30 PM EDT [facility] Blood Capillary blood specimen / Unknown 06/08/2024 11:28 PM EDT 06/08/2024 11:30 PM EDT us Maite Austin MD LAB POINT OF CARE TE ST DOCKED DEVICE UNSOLICITED RESULTS Final Result Performing Organization Address City/[facility]/ZIP Co de Phone Number [facility]ALTH[facility] [address] [place] [address] * (ABNORMAL) POCT glucose meter (06/08/2024 12:14 [...] Comment 06/08/2024 12:15 PM EDT [facility] Hot Plate [employer] Offbearer ID Shira Gutierrez [id number] 12:15 PM EDT [facility] Device ID [id number] 06/08/2024 12:15 PM EDT [facility] Specimen Type POC Capillary 06/08/2024 12:15 PM EDT [facility] Blood Capillary blood specimen / Unknown 06/08/2024 12:14 PM EDT 06/08/2024 12:15 PM EDT us Maite Austin MD LAB POINT OF CARE TE ST DOCKED DEVICE UNSOLICITED RESULTS Final Result Performing Organization Address City/[facility]/ZIP Co de Phone Number [facility] [facility] [address] [place] [address] * Magnesium, Plasma (06/08/2024 5:44 AM EDT) Pathologist [facility] Magnesium, Plasma 1.9 1.9 - 2.4 mg/dL 06/08/2024 6:25 AM EDT [facility] Blood Venous blood specimen / Unknown Venipuncture / Unknown 06/08/2024 5:44 AM EDT 06/08/2024 5:57 AM EDT us Dulce Alamo APRN LAB BLOOD ORDERABLES Final R esult Performing Organization Address City/[facility]/ZIP Co de Phone Number [facility] [address] [place] [address] * (ABNORMAL) Basic Metabolic Panel, Plasma (06/08/2024 5:44 AM EDT) Glucose, Plasma 114(H) 74 - 99 mg/dL 06/08/2024 6:25 AM EDT [facility] BUN, Plasma 11 7 - 21 mg/dL 06/08/2024 6:25 AM EDT [facility] Creatinine, Plasma 0.46(L) 0.60 - 1.10 mg/dL 06/08/2024 6:25 AM EDT [facility] BUN/Creatinine Ratio 24 06/08/2024 6:25 AM EDT [facility] Sodium, Plasma 133(L) 136 - 145 mmol/L 06/08/2024 6:25 AM EDT [facility] Potassium, Plasma 3.5(L) 3.6 - 4.9 mmol/L 06/08/2024 6:25 AM EDT [facility] Chloride, Plasma 99 97 - 107 mmol/L 06/08/2024 6:25 AM EDT [facility] CO2, Plasma 27 22 - 29 mmol/L 06/08/2024 6:25 AM EDT [facility] Anion Gap 7 6 - 16 mmol/L 06/08/2024 6:25 AM EDT [facility] Total Calcium, Plasma 7.8(L) 8.9 - 10.2 mg/dL 06/08/2024 6:25 AM EDT [facility] eGFRcr 113.9 mL/min/1.7 3m*2 06/08/2024 6:25 AM EDT [facility] Comment:Reported eGFRcr in m L/min/1.73m2 is based the CKD-EPI 2020 equation that does not use a race coefficient. Blood Venous blood specimen / Unknown Venipuncture / Unknown 06/08/2024 5:44 AM EDT 06/08/2024 5:57 AM EDT us Dulce Alamo APRN LAB BLOOD ORDERABLES Final R esult [facility] [address] [place] [address] * (ABNORMAL) CBC W/O Differential (06/08/2024 5:44 AM EDT) WBC Count 14.57(H) 3.70 - 10.30 10*3/uL LAB HEMATOLOGY METHOD 06/08/2024 6:07 AM EDT [facility] RBC Count 3.08(L) 3.90 - 5.20 10*6/uL LAB HEMATOLOGY METHOD 06/08/2024 6:07 AM EDT [facility] HGB 9.2(L) 11.2 - 15.7 g/dL LAB HEMATOLOGY METHOD 06/08/2024 6:07 AM EDT [facility] HCT 28.4(L) 34.0 - 45.0 % LAB HEMATOLOGY METHOD 06/08/2024 6:07 AM EDT [facility] Platelet Count 492(H) 155 - 369 10*3/uL LAB HEMATOLOGY METHOD 06/08/2024 6:07 AM EDT [facility] MCV 92 79 - 98 fL LAB HEMATOLOGY METHOD 06/08/2024 6:07 AM EDT [facility] MCH 29.9 26.0 - 32.0 pg LAB HEMATOLOGY METHOD 06/08/2024 6:07 AM EDT [facility] MCHC 32.4 30.7 - 35.5 g/dL LAB HEMATOLOGY METHOD 06/08/2024 6:07 AM EDT [facility] RDW 15.6(H) 11.5 - 14.5 % LAB HEMATOLOGY METHOD 06/08/2024 6:07 AM EDT [facility] MPV 8.9 8.8 - 12.5 fL LAB HEMATOLOGY METHOD 06/08/2024 6:07 AM EDT [facility] nRBC 0.0 <=0.0 per 100 WBCs LAB HEMATOLOGY METHOD 06/08/2024 6:07 AM EDT [facility] Blood Venous blood specimen / Unknown Venipuncture / Unknown 06/08/2024 5:44 AM EDT 06/08/2024 5:58 AM EDT us Dulce Alamo APRN LAB BLOOD ORDERABLES Final R esult [facility] [address] [place] [address] * XR Abdomen 1 View (06/08/2024 5:31 [...] on 06/08/2024 8:01 AM us Dulce Alamo [employer] IMG XR PROCEDURES Final Resu lt * POCT glucose meter (06/07/2024 5:13 PM EDT) [facility] POCT Glucose 97 74 - 99 mg/dL [...] Comment 06/07/2024 5:15 PM EDT [facility]ALTH[facility] [employer] Offbearer ID Pamela Tang 06/07/2024 5:15 PM EDT HEALTHCARE LAB Device ID [id number] 06/07/2024 5:15 PM EDT [facility]ALTH[facility] Specimen Type POC Capillary 06/07/2024 5:15 PM EDT [facility] Blood Capillary blood specimen / Unknown 06/07/2024 5:13 PM EDT 06/07/2024 5:15 PM EDT Maite Austin MD LAB POINT OF CARE TE ST DOCKED DEVICE UNSOLICITED RESULTS Final Result Performing Organization Address City/State/[facility] Co de Phone Number HEALTHCARE LAB [address] [place] [address] * (ABNORMAL) POCT glucose meter (06/07/2024 2:55 PM EDT) [facility] POCT Glucose 117(H) 74 - 99 mg/dL [...] 06/07/2024 2:56 PM EDT [facility] [employer] Offbearer ID Pamela Tang 06/07/2024 2:56 PM EDT [facility] Device ID [id number] 06/07/2024 2:56 PM EDT HEALTHCARE LAB Specimen Type POC Capillary 06/07/2024 2:56 PM EDT [facility] Blood Capillary blood specimen / Unknown 06/07/2024 2:55 PM EDT 06/07/2024 2:56 PM EDT us Maite Austin MD LAB POINT OF CARE TE ST DOCKED DEVICE UNSOLICITED RESULTS Final Result Performing Organization Address City/[facility]/ZIP Co de Phone Number [facility] [address] [place] [address] * Magnesium (06/07/2024 6:22 AM EDT) Magnesium, Plasma 1.9 1.9 - 2.4 mg/dL 06/07/2024 6:57 AM EDT [facility] Blood Venous blood specimen / Unknown Venipuncture / Unknown 06/07/2024 6:22 AM EDT 06/07/2024 6:26 AM EDT us Dulce Alamo APRN LAB BLOOD ORDERABLES Final R esult [facility] [address] [place] [address] * (ABNORMAL) Basic Metabolic Panel, Plasma (06/07/2024 6:22 AM EDT) Glucose, Plasma 124(H) 74 - 99 mg/dL 06/07/2024 6:57 AM EDT [facility] BUN, Plasma 13 7 - 21 mg/dL 06/07/2024 6:57 AM EDT [facility] Creatinine, Plasma 0.44(L) 0.60 - 1.10 mg/dL 06/07/2024 6:57 AM EDT [facility] BUN/Creatinine Ratio 30 06/07/2024 6:57 AM EDT [facility] Sodium, Plasma 133(L) 136 - 145 mmol/L 06/07/2024 6:57 AM EDT [facility] Potassium, Plasma 3.7 3.6 - 4.9 mmol/L 06/07/2024 6:57 AM EDT [facility] Chloride, Plasma 99 97 - 107 mmol/L 06/07/2024 6:57 AM EDT [facility] CO2, Plasma 26 22 - 29 mmol/L 06/07/2024 6:57 AM EDT [facility] Anion Gap 8 6 - 16 mmol/L 06/07/2024 6:57 AM EDT [facility] Total Calcium, Plasma 7.8(L) 8.9 - 10.2 mg/dL 06/07/2024 6:57 AM EDT [facility] eGFRcr 115.1 mL/min/1.7 3m*2 06/07/2024 6:57 AM EDT [facility] Comment:Reported eGFRcr in m L/min/1.73m2 is based the CKD-EPI 2020 equation that does not use a race coefficient. Blood Venous blood specimen / Unknown Venipuncture / Unknown 06/07/2024 6:22 AM EDT 06/07/2024 6:26 AM EDT us Dulce Alamo APRN LAB BLOOD ORDERABLES Final R esult [facility] [address] [place] [address] * (ABNORMAL) CBC and Differential (06/07/2024 6:22 AM EDT) WBC Count 16.90(H) 3.70 - 10.30 10*3/uL LAB HEMATOLOGY METHOD 06/07/2024 6:34 AM EDT [facility] RBC Count 3.05(L) 3.90 - 5.20 10*6/uL LAB HEMATOLOGY METHOD 06/07/2024 6:34 AM EDT [facility] HGB 9.0(L) 11.2 - 15.7 g/dL LAB HEMATOLOGY METHOD 06/07/2024 6:34 AM EDT [facility] HCT 28.4(L) 34.0 - 45.0 % LAB HEMATOLOGY METHOD 06/07/2024 6:34 AM EDT [facility] Platelet Count 529(H) 155 - 369 10*3/uL LAB HEMATOLOGY METHOD 06/07/2024 6:34 AM EDT [facility] MCV 93 79 - 98 fL LAB HEMATOLOGY METHOD 06/07/2024 6:34 AM EDT [facility] MCH 29.5 26.0 - 32.0 pg LAB HEMATOLOGY METHOD 06/07/2024 6:34 AM EDT [facility] MCHC 31.7 30.7 - 35.5 g/dL LAB HEMATOLOGY METHOD 06/07/2024 6:34 AM EDT [facility] RDW 15.7(H) 11.5 - 14.5 % LAB HEMATOLOGY METHOD 06/07/2024 6:34 AM EDT [facility] MPV 9.0 8.8 - 12.5 fL LAB HEMATOLOGY METHOD 06/07/2024 6:34 AM EDT [facility] nRBC 0.0 <=0.0 per 100 WBCs LAB HEMATOLOGY METHOD 06/07/2024 6:34 AM EDT [facility] Differential Type Automated LAB HEMATOLOGY METHOD 06/07/2024 6:34 AM EDT [facility] Neutrophils % 75 % LAB HEMATOLOGY METHOD 06/07/2024 6:34 AM EDT [facility] Lymphocytes % 12 % LAB HEMATOLOGY METHOD 06/07/2024 6:34 AM EDT [facility] Monocytes % 8 % LAB HEMATOLOGY METHOD 06/07/2024 6:34 AM EDT [facility] Eosinophils % 1 % LAB HEMATOLOGY METHOD 06/07/2024 6:34 AM EDT [facility] Basophils % 1 % LAB HEMATOLOGY METHOD 06/07/2024 6:34 AM EDT [facility] Immature Granulocytes % 3 % LAB HEMATOLOGY METHOD 06/07/2024 6:34 AM EDT [facility] Neutrophils Absolute 12.84(H) 1.60 - 6.10 10*3/uL LAB HEMATOLOGY METHOD 06/07/2024 6:34 AM EDT [facility] Lymphocytes Absolute 2.01 1.20 - 3.90 10*3/uL LAB HEMATOLOGY METHOD 06/07/2024 6:34 AM EDT [facility] Monocytes Absolute 1.29(H) 0.30 - 0.90 10*3/uL LAB HEMATOLOGY METHOD 06/07/2024 6:34 AM EDT [facility] Eosinophils Absolute 0.14 0.00 - 0.50 10*3/uL LAB HEMATOLOGY METHOD 06/07/2024 6:34 AM EDT [facility] Basophils Absolute 0.14(H) 0.00 - 0.10 10*3/uL LAB HEMATOLOGY METHOD 06/07/2024 6:34 AM EDT [facility] Immature Granulocytes Absolute 0.48(H) 0.00 - 0.06 10*3/uL LAB HEMATOLOGY METHOD 06/07/2024 6:34 AM EDT [facility] Blood Venous blood specimen / Unknown Venipuncture / Unknown 06/07/2024 6:22 AM EDT 06/07/2024 6:26 AM EDT Narrative [facility] - 06/07/2024 6:34 AM EDT Therapeutic decision making should be based on absolute values, rather than percentages. us Dulce Alamo APRN LAB BLOOD ORDERABLES Final R esult [facility] [address] [place] [address] * (ABNORMAL) POCT glucose meter (06/06/2024 6:25 [...] 06/06/2024 6:27 PM EDT [facility] [employer] Offbearer ID Brooklyn Goldsmith 06/06/2024 6:27 PM EDT [facility]ALTH[facility]ARE LAB Device ID [id number] 06/06/2024 6:27 PM EDT [facility]ALTH[facility] LAB Specimen Type POC Capillary 06/06/2024 6:27 PM EDT [facility] Blood Capillary blood specimen / Unknown 06/06/2024 6:25 PM EDT 06/06/2024 6:27 PM EDT us Maite Austin MD LAB POINT OF CARE TE ST DOCKED DEVICE UNSOLICITED RESULTS Final Result [facility] [address] [place] [address] * (ABNORMAL) POCT glucose meter (06/06/2024 11:20 AM EDT) [facility] POCT Glucose 135(H) 74 - 99 mg/dL [...] Comment 06/06/2024 11:25 AM EDT [facility]ALTH[facility]ARE [facility] [employer] Offbearer ID Henrry Saenz 11:25 AM EDT HEALTHCARE LAB Device ID [id number] 06/06/2024 11:25 AM EDT [facility] Specimen Type POC Capillary 06/06/2024 11:25 AM EDT [facility] Blood Capillary blood specimen / Unknown 06/06/2024 11:20 AM EDT 06/06/2024 11:25 AM EDT Maite Austin MD LAB POINT OF CARE TE ST DOCKED DEVICE UNSOLICITED RESULTS Final Result [facility] [address] [place] [address] * (ABNORMAL) POCT glucose meter (06/06/2024 5:49 AM EDT) [facility] POCT Glucose 129(H) 74 - 99 mg/dL [...] for testing. Comment 06/06/2024 5:50 AM EDT [facility] [employer] Offbearer ID Ashwin Odom [id number] 5:50 AM EDT HEALTHCARE LAB Device ID [id number] 06/06/2024 5:50 AM EDT [facility] LAB Specimen Type POC Capillary 06/06/2024 5:50 AM EDT [facility] Blood Capillary blood specimen / Unknown 06/06/2024 5:49 AM EDT 06/06/2024 5:50 AM EDT us Maite Austin MD LAB POINT OF CARE TE ST DOCKED DEVICE UNSOLICITED RESULTS Final Result [facility] [address] [place] [address] * N-Terminal Probnp, Plasma (06/06/2024 4:03 AM EDT) N-Terminal, PROBNP, Plasma 566 0 - 899 pg/mL 06/06/2024 5:20 AM EDT [facility] Blood Venous blood specimen / Unknown Venipuncture / Unknown 06/06/2024 4:03 AM EDT 06/06/2024 4:31 AM EDT us Dulce Alamo [employer] LAB BLOOD ORDERABLES Final R esult Performing Organization Address [facility] Co de Phone Number [facility] [address] [place] [address] * Magnesium, Plasma (06/06/2024 4:03 AM EDT) Magnesium, Plasma 2.1 1.9 - 2.4 mg/dL 06/06/2024 5:20 AM EDT [facility] Blood Venous blood specimen / Unknown Venipuncture / Unknown 06/06/2024 4:03 AM EDT 06/06/2024 4:31 AM EDT us Dulce Alamo [employer] LAB BLOOD ORDERABLES Final R esult Performing Organization Address City/[facility]/ZIP Co de Phone Number [facility] [address] [place] [address] * (ABNORMAL) Basic Metabolic Panel, Plasma (06/06/2024 4:03 AM EDT) Glucose, Plasma 406(H) 74 - 99 mg/dL 06/06/2024 5:20 AM EDT [facility] BUN, Plasma 11 7 - 21 mg/dL 06/06/2024 5:20 AM EDT [facility] Creatinine, Plasma 0.50(L) 0.60 - 1.10 mg/dL 06/06/2024 5:20 AM EDT [facility] BUN/Creatinine Ratio 22 06/06/2024 5:20 AM EDT [facility] Sodium, Plasma 130(L) 136 - 145 mmol/L 06/06/2024 5:20 AM EDT [facility] Potassium, Plasma 4.3 3.6 - 4.9 mmol/L 06/06/2024 5:20 AM EDT [facility] Chloride, Plasma 98 97 - 107 mmol/L 06/06/2024 5:20 AM EDT [facility] CO2, Plasma 23 22 - 29 mmol/L 06/06/2024 5:20 AM EDT [facility] Anion Gap 9 6 - 16 mmol/L 06/06/2024 5:20 AM EDT [facility] Total Calcium, Plasma 7.5(L) 8.9 - 10.2 mg/dL 06/06/2024 5:20 AM EDT [facility] eGFRcr 111.6 mL/min/1.7 3m*2 06/06/2024 5:20 AM EDT [facility] Comment:Reported eGFRcr in m L/min/1.73m2 is based the CKD-EPI 2020 equation that does not use a race coefficient. Blood Venous blood specimen / Unknown Venipuncture / Unknown 06/06/2024 4:03 AM EDT 06/06/2024 4:31 AM EDT us Dulce Alamo [employer] LAB BLOOD ORDERABLES Final R esult [facility] [address] [place] [address] * (ABNORMAL) CBC W/O Differential (06/06/2024 4:03 AM EDT) [facility] WBC Count 24.98(H) 3.70 - 10.30 10*3/uL LAB HEMATOLOGY METHOD 06/06/2024 4:56 AM EDT [facility] RBC Count 3.12(L) 3.90 - 5.20 10*6/uL LAB HEMATOLOGY METHOD 06/06/2024 4:56 AM EDT [facility] HGB 9.2(L) 11.2 - 15.7 g/dL LAB HEMATOLOGY METHOD 06/06/2024 4:56 AM EDT [facility] HCT 29.5(L) 34.0 - 45.0 % LAB HEMATOLOGY METHOD 06/06/2024 4:56 AM EDT [facility] Platelet Count 605(H) 155 - 369 10*3/uL LAB HEMATOLOGY METHOD 06/06/2024 4:56 AM EDT [facility] MCV 95 79 - 98 fL LAB HEMATOLOGY METHOD 06/06/2024 4:56 AM EDT [facility] MCH 29.5 26.0 - 32.0 pg LAB HEMATOLOGY METHOD 06/06/2024 4:56 AM EDT [facility] MCHC 31.2 30.7 - 35.5 g/dL LAB HEMATOLOGY METHOD 06/06/2024 4:56 AM EDT [facility] RDW 15.8(H) 11.5 - 14.5 % LAB HEMATOLOGY METHOD 06/06/2024 4:56 AM EDT [facility] MPV 9.5 8.8 - 12.5 fL LAB HEMATOLOGY METHOD 06/06/2024 4:56 AM EDT [facility] nRBC 0.0 <=0.0 per 100 WBCs LAB HEMATOLOGY METHOD 06/06/2024 4:56 AM EDT [facility] Blood Venous blood specimen / Unknown Venipuncture / Unknown 06/06/2024 4:03 AM EDT 06/06/2024 4:35 AM EDT us Dulce Alamo APRN LAB BLOOD ORDERABLES Final R esult [facility] [address] [place] [address] * (ABNORMAL) POCT glucose meter (06/05/2024 11:52 [...] Comment 06/05/2024 11:54 PM EDT [facility]ALTH[facility] [employer] Offbearer ID Dina Willis 11:54 PM EDT [facility]ALTH[facility] LAB Device ID [id number] 06/05/2024 11:54 PM EDT [facility]ALTH[facility] LAB Specimen Type POC Capillary 06/05/2024 11:54 PM EDT [facility] Blood Capillary blood specimen / Unknown 06/05/2024 11:52 PM EDT 06/05/2024 11:54 PM EDT us Maite Austin MD LAB POINT OF CARE TE ST DOCKED DEVICE UNSOLICITED RESULTS Final Result Performing Organization Address City/State/[facility] Co de Phone Number HEALTHCARE LAB [address] [place] [address] * XR Abdomen 1 View (06/05/2024 4:12 [...] on 06/05/2024 5:00 PM us Dulce Alamo [employer] IMG XR PROCEDURES Final Resu lt * [...] for testing. Comment 06/05/2024 12:01 PM EDT [facility] [employer] Offbearer ID ClydePamela nelson 06/05/2024 12:01 PM EDT HEALTHCARE LAB Device ID [id number] 06/05/2024 12:01 PM EDT [facility] Specimen Type POC Capillary 06/05/2024 12:01 PM EDT [facility] Blood Capillary blood specimen / Unknown 06/05/2024 11:59 AM EDT 06/05/2024 12:01 PM EDT us Maite Austin MD LAB POINT OF CARE TE ST DOCKED DEVICE UNSOLICITED RESULTS Final Result [facility] [address] [place] [id number] * N-Terminal Probnp, Plasma (06/05/2024 6:12 AM EDT) N-Terminal, PROBNP, Plasma 581 0 - 899 pg/mL 06/05/2024 8:13 AM EDT [facility] Blood Venous blood specimen / Unknown Venipuncture / Unknown 06/05/2024 6:12 AM EDT 06/05/2024 6:45 AM EDT us Dulce Alamo [employer] LAB BLOOD ORDERABLES Final R esult [facility] [address] [place] [address] * Magnesium, Plasma (06/05/2024 6:12 AM EDT) Pathologist [facility] Magnesium, Plasma 2.0 1.9 - 2.4 mg/dL 06/05/2024 7:28 AM EDT [facility] Blood Venous blood specimen / Unknown Venipuncture / Unknown 06/05/2024 6:12 AM EDT 06/05/2024 6:45 AM EDT us Shola Sheridan [employer] LAB BLOOD ORDERABLES Final R esult [facility] [address] [place] [address] * (ABNORMAL) Basic Metabolic Panel, Plasma (06/05/2024 6:12 AM EDT) Pathologist [facility] Glucose, Plasma 125(H) 74 - 99 mg/dL 06/05/2024 7:28 AM EDT [facility] BUN, Plasma 13 7 - 21 mg/dL 06/05/2024 7:28 AM EDT [facility] Creatinine, Plasma 0.50(L) 0.60 - 1.10 mg/dL 06/05/2024 7:28 AM EDT [facility] BUN/Creatinine Ratio 26 06/05/2024 7:28 AM EDT [facility] Sodium, Plasma 133(L) 136 - 145 mmol/L 06/05/2024 7:28 AM EDT [facility] Potassium, Plasma 3.6 3.6 - 4.9 mmol/L 06/05/2024 7:28 AM EDT [facility] Chloride, Plasma 99 97 - 107 mmol/L 06/05/2024 7:28 AM EDT [facility] CO2, Plasma 26 22 - 29 mmol/L 06/05/2024 7:28 AM EDT [facility] Anion Gap 8 6 - 16 mmol/L 06/05/2024 7:28 AM EDT [facility] Total Calcium, Plasma 7.7(L) 8.9 - 10.2 mg/dL 06/05/2024 7:28 AM EDT [facility] eGFRcr 111.6 mL/min/1.7 3m*2 06/05/2024 7:28 AM EDT [facility] Comment:Reported eGFRcr in m L/min/1.73m2 is based the CKD-EPI 2020 equation that does not use a race coefficient. Blood Venous blood specimen / Unknown Venipuncture / Unknown 06/05/2024 6:12 AM EDT 06/05/2024 6:45 AM EDT us Shola Sheridan APRN LAB BLOOD ORDERABLES Final R esult [facility] [address] [place] [address] * (ABNORMAL) CBC W/O Differential (06/05/2024 6:12 AM EDT) WBC Count 19.81(H) 3.70 - 10.30 10*3/uL LAB HEMATOLOGY METHOD 06/05/2024 6:53 AM EDT [facility] RBC Count 3.13(L) 3.90 - 5.20 10*6/uL LAB HEMATOLOGY METHOD 06/05/2024 6:53 AM EDT [facility] HGB 9.3(L) 11.2 - 15.7 g/dL LAB HEMATOLOGY METHOD 06/05/2024 6:53 AM EDT [facility] HCT 29.0(L) 34.0 - 45.0 % LAB HEMATOLOGY METHOD 06/05/2024 6:53 AM EDT [facility] Platelet Count 643(H) 155 - 369 10*3/uL LAB HEMATOLOGY METHOD 06/05/2024 6:53 AM EDT [facility] MCV 93 79 - 98 fL LAB HEMATOLOGY METHOD 06/05/2024 6:53 AM EDT [facility] MCH 29.7 26.0 - 32.0 pg LAB HEMATOLOGY METHOD 06/05/2024 6:53 AM EDT [facility] MCHC 32.1 30.7 - 35.5 g/dL LAB HEMATOLOGY METHOD 06/05/2024 6:53 AM EDT [facility] RDW 15.7(H) 11.5 - 14.5 % LAB HEMATOLOGY METHOD 06/05/2024 6:53 AM EDT [facility] MPV 9.1 8.8 - 12.5 fL LAB HEMATOLOGY METHOD 06/05/2024 6:53 AM EDT [facility] nRBC 0.0 <=0.0 per 100 WBCs LAB HEMATOLOGY METHOD 06/05/2024 6:53 AM EDT [facility] Blood Venous blood specimen / Unknown Venipuncture / Unknown 06/05/2024 6:12 AM EDT 06/05/2024 6:45 AM EDT us Shola Sheridan APRN LAB BLOOD ORDERABLES Final R esult [facility] [address] [place] [address] * (ABNORMAL) POCT glucose meter (06/05/2024 6:05 AM EDT) Pathologist [facility] POCT Glucose 132(H) 74 - 99 mg/dL 06/05/2024 6:07 AM EDT [facility] Comment:Accuracy of a [...] 06/05/2024 6:07 AM EDT [facility] [employer] Offbearer ID Leonarda Londono 6:07 AM EDT [facility]ALTHCARE LAB Device ID [id number] 06/05/2024 6:07 AM EDT [facility] Specimen Type POC Capillary 06/05/2024 6:07 AM EDT [facility] Blood Capillary blood specimen / Unknown 06/05/2024 6:05 AM EDT 06/05/2024 6:07 AM EDT Maite Austin MD LAB POINT OF CARE TE ST DOCKED DEVICE UNSOLICITED RESULTS Final Result Performing Organization Address City/[facility] Co de Phone Number [facility] [address] [place] [address] * (ABNORMAL) POCT glucose meter (06/05/2024 12:01 AM EDT) [facility] POCT Glucose 135(H) 74 - 99 mg/dL [...] Comment 06/05/2024 12:03 AM EDT [facility]ALTH[facility] LAB [employer] Offbearer ID Leonarda Londono 12:03 AM EDT HEALTHCARE LAB Device ID [id number] 06/05/2024 12:03 AM EDT [facility] LAB Specimen Type POC Capillary 06/05/2024 12:03 AM EDT [facility] LAB Blood Capillary blood specimen / Unknown 06/05/2024 12:01 AM EDT 06/05/2024 12:03 AM EDT Maite Austin MD LAB POINT OF CARE TE ST DOCKED DEVICE UNSOLICITED RESULTS Final Result Performing Organization Address City/[facility] Co de Phone Number [facility] [address] [place] [address] * (ABNORMAL) POCT glucose meter (06/04/2024 5:42 PM EDT) [facility] POCT Glucose 106(H) 74 - 99 mg/dL [...] Comment 06/04/2024 5:44 PM EDT HEALTHC[facility] LAB [employer] Offbearer ID Alejandra Redd 06/05/19 5:44 PM EDT HEALTHCARE LAB Device ID [id number] 06/04/2024 5:44 PM EDT HEALTHCARE LAB Specimen Type POC Capillary 06/04/2024 5:44 PM EDT [facility] LAB Blood Capillary blood specimen / Unknown 06/04/2024 5:42 PM EDT 06/04/2024 5:44 PM EDT Maite Austin MD LAB POINT OF CARE TE ST DOCKED DEVICE UNSOLICITED RESULTS Final Result [facility] [address] [place] [address] * (ABNORMAL) POCT glucose meter (06/04/2024 12:56 PM EDT) [facility] POCT Glucose 143(H) 74 - 99 mg/dL 06/04/2024 12:58 PM EDT [facility] Comment:Accuracy of a [...] Comment 06/04/2024 12:58 PM EDT [facility] Hot Plate Plywood Press Offbearer ID Alejandra Redd 06/05/19 12:58 PM EDT [facility] Device ID [id number] 06/04/2024 12:58 PM EDT [facility] Specimen Type POC Capillary 06/04/2024 12:58 PM EDT [facility] Blood Capillary blood specimen / Unknown 06/04/2024 12:56 PM EDT 06/04/2024 12:58 PM EDT us Maite Austin MD LAB POINT OF CARE TE ST DOCKED DEVICE UNSOLICITED RESULTS Final Result [facility] [address] [place] [address] * AFB Culture, Non Respiratory Source and Acid Fast Stain (06/04/2024 10:17 AM EDT) AFB Culture No Mycobacterial Growth at 6 Weeks 07/17/2024 11:29 AM EDT [facility] Acid Fast Stain No acid fast bacilli seen 07/17/2024 11:29 AM EDT [facility] Body Fluid Topography unknown / Unknown Non-blood Collection / Unknown 06/04/2024 10:17 AM EDT 06/04/2024 10:55 AM EDT us Maite Austin MD LAB MICROBIOLOGY - GENERAL ORDE RABIRA Final Result [facility] [address] [place] [address] * (ABNORMAL) Body Fluid Culture and Gram Stain (06/04/2024 10:17 AM EDT) Culture No growth at day 4 2024 7:41 AM EDT [facility] Gram Stain Result No intact cells seen(A) 06/07/2024 7:41 AM EDT [facility] Gram Stain Result No polymorphonuclear leukocytes seen(A) 06/07/2024 7:41 AM EDT [facility] Gram Stain Result No organisms seen(A) 06/07/2024 7:41 AM EDT [facility] Body Fluid Topography unknown / Unknown Non-blood Collection / Unknown 06/04/2024 10:17 AM EDT 06/04/2024 10:55 AM EDT us Maite Austin MD LAB MICROBIOLOGY - GENERAL ORDE RABLES Final Result [facility] [address] [place] [address] * (ABNORMAL) Body Fluid Cell Count w/ Diff (06/04/2024 10:17 AM EDT) Color, Body fluid Brown LAB HEMATOLOGY METHOD 06/04/2024 5:36 PM EDT [facility] Appearance, Body fluid Cloudy(A) LAB HEMATOLOGY METHOD 06/04/2024 5:36 PM EDT [facility] Volume, Body fluid 5.0 cc LAB HEMATOLOGY METHOD 06/04/2024 5:36 PM EDT [facility] Fluid Container Specimen received in miscellaneous container LAB HEMATOLOGY METHOD 06/04/2024 5:36 PM EDT [facility] Red Blood Cell Count, Body fluid LAB HEMATOLOGY METHOD 06/04/2024 5:36 PM EDT [facility] Comment:Unable to quantitate due to cell deterioration. Total Nucleated Cell Count, Body fluid LAB HEMATOLOGY METHOD 06/04/2024 5:36 PM EDT [facility] Comment:Unable to quantitate due to cell deterioration. Neutrophils %, Body fluid LAB HEMATOLOGY METHOD 06/04/2024 5:36 PM EDT [facility] Comment:Unable to quantitate due to cell deterioration. Lymphocytes %, Body fluid LAB HEMATOLOGY METHOD 06/04/2024 5:36 PM EDT [facility] Comment:Unable to quantitate due to cell deterioration. Monocytes/Macr ophages %, Body fluid LAB HEMATOLOGY METHOD 06/04/2024 5:36 PM EDT [facility] Comment:Unable to quantitate due to cell deterioration. Eosinophils %, Body fluid LAB HEMATOLOGY METHOD 06/04/2024 5:36 PM EDT [facility] Comment:Unable to quantitate due to cell deterioration. Lining/Mesothe lial Cells %, Body fluid LAB HEMATOLOGY METHOD 06/04/2024 5:36 PM EDT [facility] Comment:Unable to quantitate due to cell deterioration. Neutrophils Absolute (PMN), Body fluid LAB HEMATOLOGY METHOD 06/04/2024 5:36 PM EDT [facility] Comment:Unable to quantitate due to cell deterioration. Lymphocytes Absolute, Body fluid LAB HEMATOLOGY METHOD 06/04/2024 5:36 PM EDT [facility] Comment:Unable to quantitate due to cell deterioration. Monocytes/Macr ophages Absolute, Body fluid LAB HEMATOLOGY METHOD 06/04/2024 5:36 PM EDT [facility] Comment:Unable to quantitate due to cell deterioration. Eosinophils Absolute, Body fluid LAB HEMATOLOGY METHOD 06/04/2024 5:36 PM EDT [facility] Comment:Unable to quantitate due to cell deterioration. Basophils Absolute, Body fluid LAB HEMATOLOGY METHOD 06/04/2024 5:36 PM EDT [facility] Comment:Unable to quantitate due to cell deterioration. Lining/Mesothe lial Cells Absolute, Body fluid LAB HEMATOLOGY METHOD 06/04/2024 5:36 PM EDT [facility] Comment:Unable to quantitate due to cell deterioration. Basophils %, Body fluid LAB HEMATOLOGY METHOD 06/04/2024 5:36 PM EDT [facility] Comment:Unable to quantitate due to cell deterioration. Body Fluid Topography unknown / Unknown Non-blood Collection / Unknown 06/04/2024 10:17 AM EDT 06/04/2024 10:51 AM EDT Maite Austin MD LAB BODY FLUIDS AND STOOLS ORDERABLES NO SPECIMEN TYPE/SOURCE Final Result [facility] [address] [place] [address] * CT Guided Drain Placement Peritoneal or [...] the paracolic gutter presenting for drainage PHYSICIANS: track equipment operator: MAYTE ELMORE MD Secondary demolition hammer operator: None RAD DOSE: Total DLP 413 [...] the paracolic gutter presenting for drainage PHYSICIANS: track equipment operator: MAYTE ELMORE MD Secondary demolition hammer operator: None RAD DOSE: Total DLP 413 [...] well, and was transferred [facility] good condition. Approximately 10 cc of [...] Elmore MD on 06/04/2024 12:43 PM Lorena Phillips APRN IMG CT PROCEDURES Final Resu lt * Magnesium, Plasma (06/04/2024 5:56 AM EDT) Magnesium, Plasma 2.1 1.9 - 2.4 mg/dL 06/04/2024 7:14 AM EDT [facility] Blood Venous blood specimen / Unknown Venipuncture / Unknown 06/04/2024 5:56 AM EDT 06/04/2024 6:44 AM EDT us Shola Sheridan [employer] LAB BLOOD ORDERABLES Final R esult [facility] [address] [place] [address] * (ABNORMAL) Basic Metabolic Panel, Plasma (06/04/2024 5:56 AM EDT) Glucose, Plasma 105(H) 74 - 99 mg/dL 06/04/2024 7:14 AM EDT [facility] BUN, Plasma 12 7 - 21 mg/dL 06/04/2024 7:14 AM EDT [facility] Creatinine, Plasma 0.53(L) 0.60 - 1.10 mg/dL 06/04/2024 7:14 AM EDT [facility] BUN/Creatinine Ratio 23 06/04/2024 7:14 AM EDT [facility] Sodium, Plasma 133(L) 136 - 145 mmol/L 06/04/2024 7:14 AM EDT [facility] Potassium, Plasma 3.8 3.6 - 4.9 mmol/L 06/04/2024 7:14 AM EDT [facility] Chloride, Plasma 101 97 - 107 mmol/L 06/04/2024 7:14 AM EDT [facility] CO2, Plasma 24 22 - 29 mmol/L 06/04/2024 7:14 AM EDT [facility] Anion Gap 8 6 - 16 mmol/L 06/04/2024 7:14 AM EDT [facility] Total Calcium, Plasma 7.7(L) 8.9 - 10.2 mg/dL 06/04/2024 7:14 AM EDT [facility] eGFRcr 110.1 mL/min/1.7 3m*2 06/04/2024 7:14 AM EDT [facility] Comment:Reported eGFRcr in m L/min/1.73m2 is based the CKD-EPI 2020 equation that does not use a race coefficient. Blood Venous blood specimen / Unknown Venipuncture / Unknown 06/04/2024 5:56 AM EDT 06/04/2024 6:44 AM EDT us Shola M Arvin [employer] LAB BLOOD ORDERABLES Final R esult [facility] [address] [place] [address] * (ABNORMAL) CBC W/O Differential (06/04/2024 5:56 AM EDT) WBC Count 22.10(H) 3.70 - 10.30 10*3/uL LAB HEMATOLOGY METHOD 06/04/2024 6:52 AM EDT [facility] RBC Count 3.15(L) 3.90 - 5.20 10*6/uL LAB HEMATOLOGY METHOD 06/04/2024 6:52 AM EDT [facility] HGB 9.4(L) 11.2 - 15.7 g/dL LAB HEMATOLOGY METHOD 06/04/2024 6:52 AM EDT [facility] HCT 29.3(L) 34.0 - 45.0 % LAB HEMATOLOGY METHOD 06/04/2024 6:52 AM EDT [facility] Platelet Count 716(H) 155 - 369 10*3/uL LAB HEMATOLOGY METHOD 06/04/2024 6:52 AM EDT [facility] MCV 93 79 - 98 fL LAB HEMATOLOGY METHOD 06/04/2024 6:52 AM EDT [facility] MCH 29.8 26.0 - 32.0 pg LAB HEMATOLOGY METHOD 06/04/2024 6:52 AM EDT [facility] MCHC 32.1 30.7 - 35.5 g/dL LAB HEMATOLOGY METHOD 06/04/2024 6:52 AM EDT [facility] RDW 15.5(H) 11.5 - 14.5 % LAB HEMATOLOGY METHOD 06/04/2024 6:52 AM EDT [facility] MPV 9.4 8.8 - 12.5 fL LAB HEMATOLOGY METHOD 06/04/2024 6:52 AM EDT [facility] nRBC 0.0 <=0.0 per 100 WBCs LAB HEMATOLOGY METHOD 06/04/2024 6:52 AM EDT [facility] Blood Venous blood specimen / Unknown Venipuncture / Unknown 06/04/2024 5:56 AM EDT 06/04/2024 6:44 AM EDT us Shola Sheridan APRN LAB BLOOD ORDERABLES Final R esult Performing Organization Address City/[facility]/ZIP Co de Phone Number [facility] [address] [place] [address] * (ABNORMAL) POCT glucose meter (06/03/2024 11:08 [...] Comment 06/03/2024 11:12 PM EDT [facility] Hot Plate Plywood Press Offbearer ID Mani Vargas 025 11:12 PM EDT [facility] Device ID [id number] 06/03/2024 11:12 PM EDT [facility] Specimen Type POC Capillary 06/03/2024 11:12 PM EDT [facility] Blood Capillary blood specimen / Unknown 06/03/2024 11:08 PM EDT 06/03/2024 11:12 PM EDT us Maite Austin MD LAB POINT OF CARE TE ST DOCKED DEVICE UNSOLICITED RESULTS Final Result Performing Organization Address City/[facility] Co de Phone Number [facility] [address] [place] [address] * (ABNORMAL) POCT glucose meter (06/03/2024 5:04 [...] for testing. Comment 06/03/2024 5:06 PM EDT [facility] Hot Plate Plywood Press Offbearer ID Isabel Tangn 06/03/2024 5:06 PM EDT [facility] Device ID [id number] 06/03/2024 5:06 PM EDT [facility] Specimen Type POC Capillary 06/03/2024 5:06 PM EDT [facility] Blood Capillary blood specimen / Unknown 06/03/2024 5:04 PM EDT 06/03/2024 5:06 PM EDT Maite Austin MD LAB POINT OF CARE TE ST DOCKED DEVICE UNSOLICITED RESULTS Final Result [facility] [address] [place] [address] * (ABNORMAL) POCT glucose meter (06/03/2024 11:48 AM EDT) [facility] POCT Glucose 123(H) 74 - 99 mg/dL [...] 06/03/2024 11:50 AM EDT [facility] Hot Plate Plywood Press Offbearer ID Isabel Tangn 06/03/2024 11:50 AM EDT [facility] Device ID [id number] 06/03/2024 11:50 AM EDT [facility] Specimen Type POC Capillary 06/03/2024 11:50 AM EDT [facility] Blood Capillary blood specimen / Unknown 06/03/2024 11:48 AM EDT 06/03/2024 11:50 AM EDT Maite Austin MD LAB POINT OF CARE TE ST DOCKED DEVICE UNSOLICITED RESULTS Final Result Performing Organization Address [facility] de Phone Number [facility] [address] [place] [address] * (ABNORMAL) POCT glucose meter (06/03/2024 7:54 AM EDT) Pathologist [facility] POCT Glucose 136(H) 74 - 99 mg/dL [...] Comment 06/03/2024 7:56 AM EDT [facility] Hot Plate Plywood Press Offbearer ID Fernanda De Luna 7:56 AM EDT [facility] Device ID [id number] 06/03/2024 7:56 AM EDT [facility] Specimen Type POC Capillary 06/03/2024 7:56 AM EDT [facility] Blood Capillary blood specimen / Unknown 06/03/2024 7:54 AM EDT 06/03/2024 7:56 AM EDT us Maite Austin MD LAB POINT OF CARE TE ST DOCKED DEVICE UNSOLICITED RESULTS Final Result Performing Organization Address City/[facility] Co de Phone Number [facility] [address] [place] [address] * (ABNORMAL) Prealbumin (06/03/2024 1:08 AM EDT) Pathologist [facility] Prealbumin, Plasma 16.8(L) 20.0 - 41.0 mg/dL 06/03/2024 1:49 AM EDT [facility] Blood Venous blood specimen / Unknown Venipuncture / Unknown 06/03/2024 1:08 AM EDT 06/03/2024 1:20 AM EDT us Shola Corbett Arvin [employer] LAB BLOOD ORDERABLES Final R esult Performing Organization Address City/[facility]/ZIP Co de Phone Number [facility] [address] [place] [address] * Magnesium, Plasma (06/03/2024 1:08 AM EDT) Magnesium, Plasma 2.0 1.9 - 2.4 mg/dL 06/03/2024 1:49 AM EDT [facility] Blood Venous blood specimen / Unknown Venipuncture / Unknown 06/03/2024 1:08 AM EDT 06/03/2024 1:20 AM EDT Shola Corbett Alger [employer] LAB BLOOD ORDERABLES Final R esult Performing Organization Address City/[facility]/ZIP Co de Phone Number [facility] [address] [place] [address] * (ABNORMAL) Basic Metabolic Panel, Plasma (06/03/2024 1:08 AM EDT) Glucose, Plasma 117(H) 74 - 99 mg/dL 06/03/2024 1:49 AM EDT [facility] BUN, Plasma 12 7 - 21 mg/dL 06/03/2024 1:49 AM EDT [facility] Creatinine, Plasma 0.48(L) 0.60 - 1.10 mg/dL 06/03/2024 1:49 AM EDT [facility] BUN/Creatinine Ratio 25 06/03/2024 1:49 AM EDT [facility] Sodium, Plasma 130(L) 136 - 145 mmol/L 06/03/2024 1:49 AM EDT [facility] Potassium, Plasma 3.3(L) 3.6 - 4.9 mmol/L 06/03/2024 1:49 AM EDT [facility] Chloride, Plasma 98 97 - 107 mmol/L 06/03/2024 1:49 AM EDT [facility] CO2, Plasma 23 22 - 29 mmol/L 06/03/2024 1:49 AM EDT [facility] Anion Gap 9 6 - 16 mmol/L 06/03/2024 1:49 AM EDT [facility] Total Calcium, Plasma 7.7(L) 8.9 - 10.2 mg/dL 06/03/2024 1:49 AM EDT [facility] eGFRcr 112.7 mL/min/1.7 3m*2 06/03/2024 1:49 AM EDT [facility] Comment:Reported eGFRcr in m L/min/1.73m2 is based the CKD-EPI 2020 equation that does not use a race coefficient. Blood Venous blood specimen / Unknown Venipuncture / Unknown 06/03/2024 1:08 AM EDT 06/03/2024 1:20 AM EDT us Shola Sheridan [employer] LAB BLOOD ORDERABLES Final R esult [facility] [address] [place] [address] * (ABNORMAL) CBC W/O Differential (06/03/2024 1:08 AM EDT) WBC Count 20.40(H) 3.70 - 10.30 10*3/uL LAB HEMATOLOGY METHOD 06/03/2024 1:27 AM EDT [facility] RBC Count 3.12(L) 3.90 - 5.20 10*6/uL LAB HEMATOLOGY METHOD 06/03/2024 1:27 AM EDT [facility] HGB 9.2(L) 11.2 - 15.7 g/dL LAB HEMATOLOGY METHOD 06/03/2024 1:27 AM EDT [facility] HCT 28.8(L) 34.0 - 45.0 % LAB HEMATOLOGY METHOD 06/03/2024 1:27 AM EDT [facility] Platelet Count 689(H) 155 - 369 10*3/uL LAB HEMATOLOGY METHOD 06/03/2024 1:27 AM EDT [facility] MCV 92 79 - 98 fL LAB HEMATOLOGY METHOD 06/03/2024 1:27 AM EDT [facility] MCH 29.5 26.0 - 32.0 pg LAB HEMATOLOGY METHOD 06/03/2024 1:27 AM EDT [facility] MCHC 31.9 30.7 - 35.5 g/dL LAB HEMATOLOGY METHOD 06/03/2024 1:27 AM EDT [facility] RDW 15.6(H) 11.5 - 14.5 % LAB HEMATOLOGY METHOD 06/03/2024 1:27 AM EDT [facility] MPV 9.3 8.8 - 12.5 fL LAB HEMATOLOGY METHOD 06/03/2024 1:27 AM EDT [facility] nRBC 0.0 <=0.0 per 100 WBCs LAB HEMATOLOGY METHOD 06/03/2024 1:27 AM EDT [facility] Blood Venous blood specimen / Unknown Venipuncture / Unknown 06/03/2024 1:08 AM EDT 06/03/2024 1:19 AM EDT us Shola Sheridan [employer] LAB BLOOD ORDERABLES Final R esult [facility] [address] [place] [address] * (ABNORMAL) POCT glucose meter (06/02/2024 5:54 [...] 06/02/2024 5:59 PM EDT [facility] Hot Plate [employer]wood Press Offbearer ID Yonny Urbano 5:59 PM EDT [facility]ALTH[facility] Device ID [id number] 06/02/2024 5:59 PM EDT [facility] Specimen Type POC Capillary 06/02/2024 5:59 PM EDT [facility] Blood Capillary blood specimen / Unknown 06/02/2024 5:54 PM EDT 06/02/2024 5:59 PM EDT us Maite Austin MD LAB POINT OF CARE TE ST DOCKED DEVICE UNSOLICITED RESULTS Final Result [facility] [address] [place] [address] * (ABNORMAL) POCT glucose meter (06/02/2024 12:39 [...] Comment 06/02/2024 12:42 PM EDT [facility] Hot Plate [employer]wood Press Offbearer ID Yonny Urbano 12:42 PM EDT [facility] Device ID [id number] 06/02/2024 12:42 PM EDT [facility] Specimen Type POC Capillary 06/02/2024 12:42 PM EDT [facility] Blood Capillary blood specimen / Unknown 06/02/2024 12:39 PM EDT 06/02/2024 12:42 PM EDT us Maite Austin MD LAB POINT OF CARE TE ST DOCKED DEVICE UNSOLICITED RESULTS Final Result [facility] [address] [place] [address] * (ABNORMAL) Basic metabolic panel (06/02/2024 7:08 AM EDT) Glucose, Plasma 111(H) 74 - 99 mg/dL 06/02/2024 8:10 AM EDT [facility] BUN, Plasma 13 7 - 21 mg/dL 06/02/2024 8:10 AM EDT [facility] Creatinine, Plasma 0.60 0.60 - 1.10 mg/dL 06/02/2024 8:10 AM EDT [facility] BUN/Creatinine Ratio 22 06/02/2024 8:10 AM EDT [facility] Sodium, Plasma 130(L) 136 - 145 mmol/L 06/02/2024 8:10 AM EDT [facility] Potassium, Plasma 3.6 3.6 - 4.9 mmol/L 06/02/2024 8:10 AM EDT [facility] Chloride, Plasma 97 97 - 107 mmol/L 06/02/2024 8:10 AM EDT [facility] CO2, Plasma 21(L) 22 - 29 mmol/L 06/02/2024 8:10 AM EDT [facility] Anion Gap 12 6 - 16 mmol/L 06/02/2024 8:10 AM EDT [facility] Total Calcium, Plasma 7.9(L) 8.9 - 10.2 mg/dL 06/02/2024 8:10 AM EDT [facility] eGFRcr 106.8 mL/min/1.7 3m*2 06/02/2024 8:10 AM EDT [facility] Comment:Reported eGFRcr in m L/min/1.73m2 is based the CKD-EPI 2020 equation that does not use a race coefficient. Blood Venous blood specimen / Unknown Venipuncture / Unknown 06/02/2024 7:08 AM EDT 06/02/2024 7:42 AM EDT us Maite Austin MD LAB BLOOD ORDERABLES Final Resu lt [facility] [address] [place] [address] * (ABNORMAL) Renal Function Panel, Plasma (06/02/2024 1:02 AM EDT) Glucose, Plasma 507(HH) 74 - 99 mg/dL 06/02/2024 1:47 AM EDT [facility] BUN, Plasma 11 7 - 21 mg/dL 06/02/2024 1:47 AM EDT [facility] Creatinine, Plasma 0.60 0.60 - 1.10 mg/dL 06/02/2024 1:47 AM EDT [facility] BUN/Creatinine Ratio 18 06/02/2024 1:47 AM EDT [facility] Sodium, Plasma 125(L) 136 - 145 mmol/L 06/02/2024 1:47 AM EDT [facility] Potassium, Plasma 4.8 3.6 - 4.9 mmol/L 06/02/2024 1:47 AM EDT [facility] Chloride, Plasma 93(L) 97 - 107 mmol/L 06/02/2024 1:47 AM EDT [facility] CO2, Plasma 20(L) 22 - 29 mmol/L 06/02/2024 1:47 AM EDT [facility] Anion Gap 12 6 - 16 mmol/L 06/02/2024 1:47 AM EDT [facility] Total Calcium, Plasma 7.9(L) 8.9 - 10.2 mg/dL 06/02/2024 1:47 AM EDT [facility] Phosphorus, Plasma 5.8(H) 2.5 - 4.5 mg/dL 06/02/2024 1:47 AM EDT [facility] Albumin, Plasma 2.2(L) 3.5 - 5.2 g/dL 06/02/2024 1:47 AM EDT [facility] eGFRcr 106.8 mL/min/1.7 3m*2 06/02/2024 1:47 AM EDT [facility] Comment:Reported eGFRcr in m L/min/1.73m2 is based the CKD-EPI 2020 equation that does not use a race coefficient. Blood Venous blood specimen / Unknown Venipuncture / Unknown 06/02/2024 1:02 AM EDT 06/02/2024 1:16 AM EDT us Lora Llanes [employer] LAB BLOOD ORDERABLES Final Result [facility] [address] [place] [address] * Magnesium, Plasma (06/02/2024 1:02 AM EDT) Magnesium, Plasma 2.3 1.9 - 2.4 mg/dL 06/02/2024 1:47 AM EDT [facility] Blood Venous blood specimen / Unknown Venipuncture / Unknown 06/02/2024 1:02 AM EDT 06/02/2024 1:16 AM EDT us Maite Asutin MD LAB BLOOD ORDERABLES Final Resu lt [facility] [address] [place] [address] * (ABNORMAL) CBC and Differential (06/02/2024 1:02 AM EDT) WBC Count 33.90(H) 3.70 - 10.30 10*3/uL LAB HEMATOLOGY METHOD 06/02/2024 3:00 AM EDT [facility] RBC Count 3.08(L) 3.90 - 5.20 10*6/uL LAB HEMATOLOGY METHOD 06/02/2024 3:00 AM EDT [facility] HGB 9.2(L) 11.2 - 15.7 g/dL LAB HEMATOLOGY METHOD 06/02/2024 3:00 AM EDT [facility] HCT 28.7(L) 34.0 - 45.0 % LAB HEMATOLOGY METHOD 06/02/2024 3:00 AM EDT [facility] Platelet Count 702(H) 155 - 369 10*3/uL LAB HEMATOLOGY METHOD 06/02/2024 3:00 AM EDT [facility] MCV 93 79 - 98 fL LAB HEMATOLOGY METHOD 06/02/2024 3:00 AM EDT [facility] MCH 29.9 26.0 - 32.0 pg LAB HEMATOLOGY METHOD 06/02/2024 3:00 AM EDT [facility] MCHC 32.1 30.7 - 35.5 g/dL LAB HEMATOLOGY METHOD 06/02/2024 3:00 AM EDT [facility] RDW 15.9(H) 11.5 - 14.5 % LAB HEMATOLOGY METHOD 06/02/2024 3:00 AM EDT [facility] MPV 9.7 8.8 - 12.5 fL LAB HEMATOLOGY METHOD 06/02/2024 3:00 AM EDT [facility] nRBC 0.0 <=0.0 per 100 WBCs LAB HEMATOLOGY METHOD 06/02/2024 3:00 AM EDT [facility] Differential Type Automated LAB HEMATOLOGY METHOD 06/02/2024 3:00 AM EDT [facility] Neutrophils % 84 % LAB HEMATOLOGY METHOD 06/02/2024 3:00 AM EDT [facility] Lymphocytes % 6 % LAB HEMATOLOGY METHOD 06/02/2024 3:00 AM EDT [facility] Monocytes % 5 % LAB HEMATOLOGY METHOD 06/02/2024 3:00 AM EDT [facility] Eosinophils % 1 % LAB HEMATOLOGY METHOD 06/02/2024 3:00 AM EDT [facility] Basophils % 0 % LAB HEMATOLOGY METHOD 06/02/2024 3:00 AM EDT [facility] Immature Granulocytes % 4 % LAB HEMATOLOGY METHOD 06/02/2024 3:00 AM EDT [facility] Neutrophils Absolute 28.51(H) 1.60 - 6.10 10*3/uL LAB HEMATOLOGY METHOD 06/02/2024 3:00 AM EDT [facility] Lymphocytes Absolute 1.86 1.20 - 3.90 10*3/uL LAB HEMATOLOGY METHOD 06/02/2024 3:00 AM EDT [facility] Monocytes Absolute 1.83(H) 0.30 - 0.90 10*3/uL LAB HEMATOLOGY METHOD 06/02/2024 3:00 AM EDT [facility] Eosinophils Absolute 0.27 0.00 - 0.50 10*3/uL LAB HEMATOLOGY METHOD 06/02/2024 3:00 AM EDT [facility] Basophils Absolute 0.05 0.00 - 0.10 10*3/uL LAB HEMATOLOGY METHOD 06/02/2024 3:00 AM EDT [facility] Immature Granulocytes Absolute 1.38(H) 0.00 - 0.06 10*3/uL LAB HEMATOLOGY METHOD 06/02/2024 3:00 AM EDT [facility] Blood Venous blood specimen / Unknown Venipuncture / Unknown 06/02/2024 1:02 AM EDT 06/02/2024 1:16 AM EDT [facility] - 06/02/2024 3:00 AM EDT Therapeutic decision making should be based on absolute values, rather than percentages. us Maite Austin MD LAB BLOOD ORDERABLES Final Resu lt Performing Organization Address [facility]/ZIP Co de Phone Number [facility] [address] [place] [address] * (ABNORMAL) POCT glucose meter (06/01/2024 11:06 [...] Comment 06/01/2024 11:07 PM EDT [facility] Hot Plate [employer] Press Offbearer ID Tyler Sheffield 06/01/2024 11:07 PM EDT [facility] LAB Device ID [id number] 06/01/2024 11:07 PM EDT [facility] Specimen Type POC Capillary 06/01/2024 11:07 PM EDT [facility] Blood Capillary blood specimen / Unknown 06/01/2024 11:06 PM EDT 06/01/2024 11:07 PM EDT us Maite Austin MD LAB POINT OF CARE TE ST DOCKED DEVICE UNSOLICITED RESULTS Final Result Performing Organization Address [facility] Co de Phone Number [facility]ALTH[facility]ARE LAB [address] [place] [address] * CT Abdomen Pelvis w IV Contrast [...] Lorri Lopez MD on 06/01/2024 5:03 PM us Shola Sheridan [employer] IMG CT PROCEDURES Final Resu lt * (ABNORMAL) POCT glucose meter (06/01/2024 11:48 AM EDT) POCT Glucose 101(H) 74 - 99 mg/dL 06/01/2024 11:50 AM EDT [facility] Comment:Accuracy of a glucos e result [...] for testing. Comment 06/01/2024 11:50 AM EDT [facility] [employer] Offbearer ID Henrry Saenz 11:50 AM EDT [facility] Device ID [id number] 06/01/2024 11:50 AM EDT [facility] Specimen Type POC Capillary 06/01/2024 11:50 AM EDT [facility] Blood Capillary blood specimen / Unknown 06/01/2024 11:48 AM EDT 06/01/2024 11:50 AM EDT us Maite Austin MD LAB POINT OF CARE TE ST DOCKED DEVICE UNSOLICITED RESULTS Final Result [facility] [address] [place] [address] * (ABNORMAL) Procalcitonin (06/01/2024 8:42 AM EDT) Procalcitonin, Plasma 0.12(H) <0.09 ng/mL 06/01/2024 9:31 AM EDT [facility] Blood Venous blood specimen / Unknown Venipuncture / Unknown 06/01/2024 8:42 AM EDT 06/01/2024 8:52 AM EDT Narrative [facility] - 06/01/2024 9:31 AM EDT Procalcitonin [...] predict 28 day mortality risk. Please consult [email or web address] for more information. Test performed at [facility]. us Shola Sheridan APRN LAB BLOOD ORDERABLES Final R esult [facility] [address] [place] [address] * Lactate, venous (06/01/2024 8:42 AM EDT) Lactate, Venous, Whole Blood 0.9 0.5 - 2.2 mmol/L LAB HEMATOLOGY METHOD 06/01/2024 9:01 AM EDT [facility] Blood Venous blood specimen / Unknown Venipuncture / Unknown 06/01/2024 8:42 AM EDT 06/01/2024 8:59 AM EDT us Shola Sheridan APRN LAB BLOOD ORDERABLES Final R esult Performing Organization Address City/[facility]/ZIP Co de Phone Number [facility] [address] [place] [address] * (ABNORMAL) POCT glucose meter (06/01/2024 6:42 [...] Comment 06/01/2024 6:51 AM EDT [facility]ALTH[facility]ARE [facility] Hot Plate [employer] Press Offbearer ID Sandy Hankins 06/01/2024 6:51 AM EDT HEALTH[facility]ARE LAB Device ID [id number] 06/01/2024 6:51 AM EDT [facility] Specimen Type POC Capillary 06/01/2024 6:51 AM EDT [facility] Blood Capillary blood specimen / Unknown 06/01/2024 6:42 AM EDT 06/01/2024 6:51 AM EDT Maite Austin MD LAB POINT OF CARE TE ST DOCKED DEVICE UNSOLICITED RESULTS Final Result Performing Organization Address City/[facility] Co de Phone Number [facility]ARE [facility] [address] [place] [address] * (ABNORMAL) Renal Function Panel, Plasma (06/01/2024 1:20 AM EDT) Glucose, Plasma 495(H) 74 - 99 mg/dL 06/01/2024 1:57 AM EDT [facility] BUN, Plasma 12 7 - 21 mg/dL 06/01/2024 1:57 AM EDT [facility] Creatinine, Plasma 0.54(L) 0.60 - 1.10 mg/dL 06/01/2024 1:57 AM EDT [facility] BUN/Creatinine Ratio 22 06/01/2024 1:57 AM EDT [facility] Sodium, Plasma 126(L) 136 - 145 mmol/L 06/01/2024 1:57 AM EDT [facility] Potassium, Plasma 4.9 3.6 - 4.9 mmol/L 06/01/2024 1:57 AM EDT [facility] Chloride, Plasma 95(L) 97 - 107 mmol/L 06/01/2024 1:57 AM EDT [facility] CO2, Plasma 20(L) 22 - 29 mmol/L 06/01/2024 1:57 AM EDT [facility] Anion Gap 11 6 - 16 mmol/L 06/01/2024 1:57 AM EDT [facility] Total Calcium, Plasma 8.0(L) 8.9 - 10.2 mg/dL 06/01/2024 1:57 AM EDT [facility] Phosphorus, Plasma 5.2(H) 2.5 - 4.5 mg/dL 06/01/2024 1:57 AM EDT [facility] Albumin, Plasma 2.2(L) 3.5 - 5.2 g/dL 06/01/2024 1:57 AM EDT [facility] eGFRcr 109.6 mL/min/1.7 3m*2 06/01/2024 1:57 AM EDT [facility] Comment:Reported eGFRcr in m L/min/1.73m2 is based the CKD-EPI 2020 equation that does not use a race coefficient. Blood Venous blood specimen / Unknown Venipuncture / Unknown 06/01/2024 1:20 AM EDT 06/01/2024 1:27 AM EDT us Lora Llanes [employer] LAB BLOOD ORDERABLES Final Result [facility] [address] [place] [address] * Magnesium, Plasma (06/01/2024 1:20 AM EDT) Magnesium, Plasma 2.3 1.9 - 2.4 mg/dL 06/01/2024 1:57 AM EDT [facility] Blood Venous blood specimen / Unknown Venipuncture / Unknown 06/01/2024 1:20 AM EDT 06/01/2024 1:27 AM EDT us Maite Austin MD LAB BLOOD ORDERABLES Final Resu lt [facility] [address] [place] [address] * (ABNORMAL) CBC and Differential (06/01/2024 1:20 AM EDT) WBC Count 33.03(H) 3.70 - 10.30 10*3/uL LAB HEMATOLOGY METHOD 06/01/2024 2:43 AM EDT [facility] RBC Count 3.18(L) 3.90 - 5.20 10*6/uL LAB HEMATOLOGY METHOD 06/01/2024 2:43 AM EDT [facility] HGB 9.7(L) 11.2 - 15.7 g/dL LAB HEMATOLOGY METHOD 06/01/2024 2:43 AM EDT [facility] HCT 29.3(L) 34.0 - 45.0 % LAB HEMATOLOGY METHOD 06/01/2024 2:43 AM EDT [facility] Platelet Count 644(H) 155 - 369 10*3/uL LAB HEMATOLOGY METHOD 06/01/2024 2:43 AM EDT [facility] MCV 92 79 - 98 fL LAB HEMATOLOGY METHOD 06/01/2024 2:43 AM EDT [facility] MCH 30.5 26.0 - 32.0 pg LAB HEMATOLOGY METHOD 06/01/2024 2:43 AM EDT [facility] MCHC 33.1 30.7 - 35.5 g/dL LAB HEMATOLOGY METHOD 06/01/2024 2:43 AM EDT [facility] RDW 15.9(H) 11.5 - 14.5 % LAB HEMATOLOGY METHOD 06/01/2024 2:43 AM EDT [facility] MPV 9.6 8.8 - 12.5 fL LAB HEMATOLOGY METHOD 06/01/2024 2:43 AM EDT [facility] nRBC 0.0 <=0.0 per 100 WBCs LAB HEMATOLOGY METHOD 06/01/2024 2:43 AM EDT [facility] Differential Type Automated LAB HEMATOLOGY METHOD 06/01/2024 2:43 AM EDT [facility] Neutrophils % 81 % LAB HEMATOLOGY METHOD 06/01/2024 2:43 AM EDT [facility] Lymphocytes % 7 % LAB HEMATOLOGY METHOD 06/01/2024 2:43 AM EDT [facility] Monocytes % 6 % LAB HEMATOLOGY METHOD 06/01/2024 2:43 AM EDT [facility] Eosinophils % 1 % LAB HEMATOLOGY METHOD 06/01/2024 2:43 AM EDT [facility] Basophils % 1 % LAB HEMATOLOGY METHOD 06/01/2024 2:43 AM EDT [facility] Immature Granulocytes % 4 % LAB HEMATOLOGY METHOD 06/01/2024 2:43 AM EDT [facility] Neutrophils Absolute 26.89(H) 1.60 - 6.10 10*3/uL LAB HEMATOLOGY METHOD 06/01/2024 2:43 AM EDT [facility] Lymphocytes Absolute 2.39 1.20 - 3.90 10*3/uL LAB HEMATOLOGY METHOD 06/01/2024 2:43 AM EDT [facility] Monocytes Absolute 2.07(H) 0.30 - 0.90 10*3/uL LAB HEMATOLOGY METHOD 06/01/2024 2:43 AM EDT [facility] Eosinophils Absolute 0.22 0.00 - 0.50 10*3/uL LAB HEMATOLOGY METHOD 06/01/2024 2:43 AM EDT [facility] Basophils Absolute 0.15(H) 0.00 - 0.10 10*3/uL LAB HEMATOLOGY METHOD 06/01/2024 2:43 AM EDT [facility] Immature Granulocytes Absolute 1.31(H) 0.00 - 0.06 10*3/uL LAB HEMATOLOGY METHOD 06/01/2024 2:43 AM EDT [facility] Blood Venous blood specimen / Unknown Venipuncture / Unknown 06/01/2024 1:20 AM EDT 06/01/2024 1:28 AM EDT [facility] - 06/01/2024 2:43 AM EDT Therapeutic decision making should be based on absolute values, rather than percentages. us Maite Austin MD LAB BLOOD ORDERABLES Final Resu lt [facility] [address] [place] [address] * (ABNORMAL) POCT glucose meter (06/01/2024 12:21 [...] Comment 06/01/2024 12:29 AM EDT [facility]ALTH[facility]ARE [facility] Hot Plate [employer] Press Offbearer ID Sandy Hankins 06/01/2024 12:29 AM EDT [facility] Device ID [id number] 06/01/2024 12:29 AM EDT [facility] Specimen Type POC Capillary 06/01/2024 12:29 AM EDT [facility] Blood Capillary blood specimen / Unknown 06/01/2024 12:21 AM EDT 06/01/2024 12:29 AM EDT Maite Austin MD LAB POINT OF CARE TE ST DOCKED DEVICE UNSOLICITED RESULTS Final Result Performing Organization Address City/[facility]/ZIP Co de Phone Number [facility]ARE [facility] [address] [place] [address] * POCT glucose meter (05/31/2024 6:17 PM [...] 05/31/2024 6:19 PM EDT [facility] Hot Plate [employer] Press Offbearer ID Henrry Saenz 6:19 PM EDT [facility] LAB Device ID [id number] 05/31/2024 6:19 PM EDT [facility] Specimen Type POC Capillary 05/31/2024 6:19 PM EDT [facility] Blood Capillary blood specimen / Unknown 05/31/2024 6:17 PM EDT 05/31/2024 6:19 PM EDT Maite Austin MD LAB POINT OF CARE TE ST DOCKED DEVICE UNSOLICITED RESULTS Final Result Performing Organization Address City/[facility] Co de Phone Number [facility] [address] [place] [address] * (ABNORMAL) POCT glucose meter (05/31/2024 11:15 AM EDT) [facility] POCT Glucose 115(H) 74 - 99 mg/dL [...] 05/31/2024 11:17 AM EDT [facility] Hot Plate [employer] Press Offbearer ID Henrry Saenz 11:17 AM EDT [facility]ARE LAB Device ID [id number] 05/31/2024 11:17 AM EDT [facility] LAB Specimen Type POC Capillary 05/31/2024 11:17 AM EDT [facility] Blood Capillary blood specimen / Unknown 05/31/2024 11:15 AM EDT 05/31/2024 11:17 AM EDT us Maite Austin MD LAB POINT OF CARE TE ST DOCKED DEVICE UNSOLICITED RESULTS Final Result Performing Organization Address City/[facility]/ZIP Co de Phone Number [facility] [address] [place] [address] * XR Chest 1 View (05/31/2024 4:32 [...] line in place with similar position compared toprior study. Stable cardiac mediastinal silhouette. No consolidation. [...] - 899 pg/mL 05/31/2024 3:27 AM EDT [facility] Blood Blood sample taken from central line / Unknown (Central Line) Existing Catheter / Unknown 05/31/2024 2:50 AM EDT 05/31/2024 2:55 AM EDT us Dulce Alamo [employer] LAB BLOOD ORDERABLES Final R esult [facility] [address] [place] [address] * (ABNORMAL) Renal Function Panel, Plasma (05/31/2024 2:50 AM EDT) Glucose, Plasma 107(H) 74 - 99 mg/dL 05/31/2024 3:27 AM EDT [facility] BUN, Plasma 13 7 - 21 mg/dL 05/31/2024 3:27 AM EDT [facility] Creatinine, Plasma 0.52(L) 0.60 - 1.10 mg/dL 05/31/2024 3:27 AM EDT [facility] BUN/Creatinine Ratio 25 05/31/2024 3:27 AM EDT [facility] Sodium, Plasma 129(L) 136 - 145 mmol/L 05/31/2024 3:27 AM EDT [facility] Potassium, Plasma 3.7 3.6 - 4.9 mmol/L 05/31/2024 3:27 AM EDT [facility] Chloride, Plasma 95(L) 97 - 107 mmol/L 05/31/2024 3:27 AM EDT [facility] CO2, Plasma 25 22 - 29 mmol/L 05/31/2024 3:27 AM EDT [facility] Anion Gap 9 6 - 16 mmol/L 05/31/2024 3:27 AM EDT [facility] Total Calcium, Plasma 8.3(L) 8.9 - 10.2 mg/dL 05/31/2024 3:27 AM EDT [facility] Phosphorus, Plasma 4.4 2.5 - 4.5 mg/dL 05/31/2024 3:27 AM EDT [facility] Albumin, Plasma 2.5(L) 3.5 - 5.2 g/dL 05/31/2024 3:27 AM EDT [facility] eGFRcr 110.6 mL/min/1.7 3m*2 05/31/2024 3:27 AM EDT [facility] Comment:Reported eGFRcr in m L/min/1.73m2 is based the CKD-EPI 2020 equation that does not use a race coefficient. Blood Blood sample taken from central line / Unknown (Central Line) Existing Catheter / Unknown 05/31/2024 2:50 AM EDT 05/31/2024 2:55 AM EDT us Lora Llanes APRN LAB BLOOD ORDERABLES Final Result Performing Organization Address [facility] Co de Phone Number [facility] [address] [place] [address] * Magnesium, Plasma (05/31/2024 2:50 AM EDT) Pathologist [facility] Magnesium, Plasma 2.0 1.9 - 2.4 mg/dL 05/31/2024 3:27 AM EDT [facility] Blood Blood sample taken from central line / Unknown (Central Line) Existing Catheter / Unknown 05/31/2024 2:50 AM EDT 05/31/2024 2:55 AM EDT us Maite Austin MD LAB BLOOD ORDERABLES Final Resu lt Performing Organization Address [facility] Co de Phone Number [facility] [address] [place] [address] * (ABNORMAL) CBC and Differential (05/31/2024 2:50 AM EDT) WBC Count 26.51(H) 3.70 - 10.30 10*3/uL LAB HEMATOLOGY METHOD 05/31/2024 3:03 AM EDT [facility] RBC Count 3.36(L) 3.90 - 5.20 10*6/uL LAB HEMATOLOGY METHOD 05/31/2024 3:03 AM EDT [facility] HGB 10.2(L) 11.2 - 15.7 g/dL LAB HEMATOLOGY METHOD 05/31/2024 3:03 AM EDT [facility] HCT 31.0(L) 34.0 - 45.0 % LAB HEMATOLOGY METHOD 05/31/2024 3:03 AM EDT [facility] Platelet Count 670(H) 155 - 369 10*3/uL LAB HEMATOLOGY METHOD 05/31/2024 3:03 AM EDT [facility] MCV 92 79 - 98 fL LAB HEMATOLOGY METHOD 05/31/2024 3:03 AM EDT [facility] MCH 30.4 26.0 - 32.0 pg LAB HEMATOLOGY METHOD 05/31/2024 3:03 AM EDT [facility] MCHC 32.9 30.7 - 35.5 g/dL LAB HEMATOLOGY METHOD 05/31/2024 3:03 AM EDT [facility] RDW 15.9(H) 11.5 - 14.5 % LAB HEMATOLOGY METHOD 05/31/2024 3:03 AM EDT [facility] MPV 9.8 8.8 - 12.5 fL LAB HEMATOLOGY METHOD 05/31/2024 3:03 AM EDT [facility] nRBC 0.0 <=0.0 per 100 WBCs LAB HEMATOLOGY METHOD 05/31/2024 3:03 AM EDT [facility] Differential Type Automated LAB HEMATOLOGY METHOD 05/31/2024 3:03 AM EDT [facility] Neutrophils % 74 % LAB HEMATOLOGY METHOD 05/31/2024 3:03 AM EDT [facility] Lymphocytes % 8 % LAB HEMATOLOGY METHOD 05/31/2024 3:03 AM EDT [facility] Monocytes % 9 % LAB HEMATOLOGY METHOD 05/31/2024 3:03 AM EDT [facility] Eosinophils % 1 % LAB HEMATOLOGY METHOD 05/31/2024 3:03 AM EDT [facility] Basophils % 1 % LAB HEMATOLOGY METHOD 05/31/2024 3:03 AM EDT [facility] Immature Granulocytes % 7 % LAB HEMATOLOGY METHOD 05/31/2024 3:03 AM EDT [facility] Neutrophils Absolute 19.86(H) 1.60 - 6.10 10*3/uL LAB HEMATOLOGY METHOD 05/31/2024 3:03 AM EDT [facility] Lymphocytes Absolute 2.08 1.20 - 3.90 10*3/uL LAB HEMATOLOGY METHOD 05/31/2024 3:03 AM EDT [facility] Monocytes Absolute 2.26(H) 0.30 - 0.90 10*3/uL LAB HEMATOLOGY METHOD 05/31/2024 3:03 AM EDT [facility] Eosinophils Absolute 0.26 0.00 - 0.50 10*3/uL LAB HEMATOLOGY METHOD 05/31/2024 3:03 AM EDT [facility] Basophils Absolute 0.15(H) 0.00 - 0.10 10*3/uL LAB HEMATOLOGY METHOD 05/31/2024 3:03 AM EDT [facility] Immature Granulocytes Absolute 1.90(H) 0.00 - 0.06 10*3/uL LAB HEMATOLOGY METHOD 05/31/2024 3:03 AM EDT [facility] Blood Blood sample taken from central line / Unknown (Central Line) Existing Catheter / Unknown 05/31/2024 2:50 AM EDT 05/31/2024 2:55 AM EDT Narrative [facility] - 05/31/2024 3:03 AM EDT Therapeutic decision making should be based on absolute values, rather than percentages. us Maite Austin MD LAB BLOOD ORDERABLES Final Resu lt [facility] [address] [place] [address] * [place] NEGATIVE PRESSURE WOUND THERAPY DME >50 SQ [...] - 899 pg/mL 05/30/2024 2:27 PM EDT [facility] Blood Venous blood specimen / Unknown Venipuncture / Unknown 05/30/2024 5:13 AM EDT 05/30/2024 5:26 AM EDT us Dulce Alamo [employer] LAB BLOOD ORDERABLES Final R esult [facility] [address] [place] [address] * (ABNORMAL) Renal Function Panel, Plasma (05/30/2024 5:13 AM EDT) Glucose, Plasma 112(H) 74 - 99 mg/dL 05/30/2024 6:03 AM EDT [facility] BUN, Plasma 14 7 - 21 mg/dL 05/30/2024 6:03 AM EDT [facility] Creatinine, Plasma 0.52(L) 0.60 - 1.10 mg/dL 05/30/2024 6:03 AM EDT [facility] BUN/Creatinine Ratio 27 05/30/2024 6:03 AM EDT [facility] Sodium, Plasma 131(L) 136 - 145 mmol/L 05/30/2024 6:03 AM EDT [facility] Potassium, Plasma 3.7 3.6 - 4.9 mmol/L 05/30/2024 6:03 AM EDT [facility] Chloride, Plasma 96(L) 97 - 107 mmol/L 05/30/2024 6:03 AM EDT [facility] CO2, Plasma 24 22 - 29 mmol/L 05/30/2024 6:03 AM EDT [facility] Anion Gap 11 6 - 16 mmol/L 05/30/2024 6:03 AM EDT [facility] Total Calcium, Plasma 8.0(L) 8.9 - 10.2 mg/dL 05/30/2024 6:03 AM EDT [facility] Phosphorus, Plasma 4.3 2.5 - 4.5 mg/dL 05/30/2024 6:03 AM EDT [facility] Albumin, Plasma 2.3(L) 3.5 - 5.2 g/dL 05/30/2024 6:03 AM EDT [facility] eGFRcr 110.6 mL/min/1.7 3m*2 05/30/2024 6:03 AM EDT [facility] Comment:Reported eGFRcr in m L/min/1.73m2 is based the CKD-EPI 2020 equation that does not use a race coefficient. Blood Venous blood specimen / Unknown Venipuncture / Unknown 05/30/2024 5:13 AM EDT 05/30/2024 5:26 AM EDT us Lora Llanes APRN LAB BLOOD ORDERABLES Final Result Performing Organization Address City/[facility]/ZIP Co de Phone Number [facility] [address] [place] [address] * Magnesium, Plasma (05/30/2024 5:13 AM EDT) Magnesium, Plasma 1.9 1.9 - 2.4 mg/dL 05/30/2024 6:03 AM EDT [facility] Blood Venous blood specimen / Unknown Venipuncture / Unknown 05/30/2024 5:13 AM EDT 05/30/2024 5:26 AM EDT us Maite Austin MD LAB BLOOD ORDERABLES Final Resu lt [facility] [address] [place] [address] * (ABNORMAL) CBC and Differential (05/30/2024 5:13 AM EDT) WBC Count 23.21(H) 3.70 - 10.30 10*3/uL LAB HEMATOLOGY METHOD 05/30/2024 5:38 AM EDT [facility] RBC Count 3.23(L) 3.90 - 5.20 10*6/uL LAB HEMATOLOGY METHOD 05/30/2024 5:38 AM EDT [facility] HGB 9.7(L) 11.2 - 15.7 g/dL LAB HEMATOLOGY METHOD 05/30/2024 5:38 AM EDT [facility] HCT 29.7(L) 34.0 - 45.0 % LAB HEMATOLOGY METHOD 05/30/2024 5:38 AM EDT [facility] Platelet Count 603(H) 155 - 369 10*3/uL LAB HEMATOLOGY METHOD 05/30/2024 5:38 AM EDT [facility] MCV 92 79 - 98 fL LAB HEMATOLOGY METHOD 05/30/2024 5:38 AM EDT [facility] MCH 30.0 26.0 - 32.0 pg LAB HEMATOLOGY METHOD 05/30/2024 5:38 AM EDT [facility] MCHC 32.7 30.7 - 35.5 g/dL LAB HEMATOLOGY METHOD 05/30/2024 5:38 AM EDT [facility] RDW 15.9(H) 11.5 - 14.5 % LAB HEMATOLOGY METHOD 05/30/2024 5:38 AM EDT [facility] MPV 9.8 8.8 - 12.5 fL LAB HEMATOLOGY METHOD 05/30/2024 5:38 AM EDT [facility] nRBC 0.0 <=0.0 per 100 WBCs LAB HEMATOLOGY METHOD 05/30/2024 5:38 AM EDT [facility] Differential Type Automated LAB HEMATOLOGY METHOD 05/30/2024 5:38 AM EDT [facility] Neutrophils % 75 % LAB HEMATOLOGY METHOD 05/30/2024 5:38 AM EDT [facility] Lymphocytes % 9 % LAB HEMATOLOGY METHOD 05/30/2024 5:38 AM EDT [facility] Monocytes % 8 % LAB HEMATOLOGY METHOD 05/30/2024 5:38 AM EDT [facility] Eosinophils % 1 % LAB HEMATOLOGY METHOD 05/30/2024 5:38 AM EDT [facility] Basophils % 1 % LAB HEMATOLOGY METHOD 05/30/2024 5:38 AM EDT [facility] Immature Granulocytes % 6 % LAB HEMATOLOGY METHOD 05/30/2024 5:38 AM EDT [facility] Neutrophils Absolute 17.83(H) 1.60 - 6.10 10*3/uL LAB HEMATOLOGY METHOD 05/30/2024 5:38 AM EDT [facility] Lymphocytes Absolute 1.98 1.20 - 3.90 10*3/uL LAB HEMATOLOGY METHOD 05/30/2024 5:38 AM EDT [facility] Monocytes Absolute 1.73(H) 0.30 - 0.90 10*3/uL LAB HEMATOLOGY METHOD 05/30/2024 5:38 AM EDT [facility] Eosinophils Absolute 0.18 0.00 - 0.50 10*3/uL LAB HEMATOLOGY METHOD 05/30/2024 5:38 AM EDT [facility] Basophils Absolute 0.11(H) 0.00 - 0.10 10*3/uL LAB HEMATOLOGY METHOD 05/30/2024 5:38 AM EDT [facility] Immature Granulocytes Absolute 1.38(H) 0.00 - 0.06 10*3/uL LAB HEMATOLOGY METHOD 05/30/2024 5:38 AM EDT [facility] Blood Venous blood specimen / Unknown Venipuncture / Unknown 05/30/2024 5:13 AM EDT 05/30/2024 5:28 AM EDT Narrative [facility] - 05/30/2024 5:38 AM EDT Therapeutic decision making should be based on absolute values, rather than percentages. us Maite Austin MD LAB BLOOD ORDERABLES Final Resu lt [facility] [address] [place] [address] * XR Chest 1 View (05/30/2024 3:11 [...] 8:33 AM Final report signed by Champ Oedn MD on 05/30/2024 9:22 AM Maite Austin MD IMG XR PROCEDURES Final Result * Phosphorus (05/29/2024 7:00 AM EDT) Phosphorus, Plasma 4.1 2.5 - 4.5 mg/dL 05/29/2024 7:43 AM EDT [facility] Blood Venous blood specimen / Unknown Venipuncture / Unknown 05/29/2024 7:00 AM EDT 05/29/2024 7:06 AM EDT Maite Austin MD LAB BLOOD ORDERABLES Final Resu lt [facility] [address] [place] [address] * (ABNORMAL) Basic metabolic panel (05/29/2024 7:00 AM EDT) Glucose, Plasma 104(H) 74 - 99 mg/dL 05/29/2024 7:43 AM EDT [facility] BUN, Plasma 13 7 - 21 mg/dL 05/29/2024 7:43 AM EDT [facility] Creatinine, Plasma 0.58(L) 0.60 - 1.10 mg/dL 05/29/2024 7:43 AM EDT [facility] BUN/Creatinine Ratio 22 05/29/2024 7:43 AM EDT [facility] Sodium, Plasma 132(L) 136 - 145 mmol/L 05/29/2024 7:43 AM EDT [facility] Potassium, Plasma 4.0 3.6 - 4.9 mmol/L 05/29/2024 7:43 AM EDT [facility] Chloride, Plasma 97 97 - 107 mmol/L 05/29/2024 7:43 AM EDT [facility] CO2, Plasma 25 22 - 29 mmol/L 05/29/2024 7:43 AM EDT [facility] Anion Gap 10 6 - 16 mmol/L 05/29/2024 7:43 AM EDT [facility] Total Calcium, Plasma 8.3(L) 8.9 - 10.2 mg/dL 05/29/2024 7:43 AM EDT [facility] eGFRcr 107.7 mL/min/1.7 3m*2 05/29/2024 7:43 AM EDT [facility] Comment:Reported eGFRcr in m L/min/1.73m2 is based the CKD-EPI 2020 equation that does not use a race coefficient. Blood Venous blood specimen / Unknown Venipuncture / Unknown 05/29/2024 7:00 AM EDT 05/29/2024 7:06 AM EDT us Maite Austin MD LAB BLOOD ORDERABLES Final Resu lt [facility] [address] [place] [address] * (ABNORMAL) POCT glucose meter (05/29/2024 6:51 AM EDT) [facility] POCT Glucose 118(H) 74 - 99 mg/dL [...] Comment 05/29/2024 6:52 AM EDT [facility] Hot Plate [employer]wood Press Offbearer ID Cydney Trevizo 05/29/2024 6:52 AM EDT [facility] Device ID [id number] 05/29/2024 6:52 AM EDT [facility] Specimen Type POC Capillary 05/29/2024 6:52 AM EDT [facility] Blood Capillary blood specimen / Unknown 05/29/2024 6:51 AM EDT 05/29/2024 6:52 AM EDT Maite Austin MD LAB POINT OF CARE TE ST DOCKED DEVICE UNSOLICITED RESULTS Final Result Performing Organization Address City/[facility] Co de Phone Number [facility] [address] [place] [address] * Morphology (05/29/2024 5:35 AM EDT) [facility] Signature Polychromasia Slight LAB HEMATOLOGY METHOD 05/29/2024 8:34 AM EDT [facility] RBC Morphology Slide Reviewed LAB HEMATOLOGY METHOD 05/29/2024 8:34 AM EDT [facility] Platelet Estimate Platelet smear estimate consistent with automated count LAB HEMATOLOGY METHOD 05/29/2024 8:34 AM EDT [facility] Blood Blood sample taken from central line / Unknown Venipuncture / Unknown 05/29/2024 5:35 AM EDT 05/29/2024 5:56 AM EDT Maite Austin MD LAB BLOOD ORDERABLES Final Resu lt Performing Organization Address City/[facility]/ZIP Co de Phone Number [facility] [address] [place] [address] * (ABNORMAL) Manual Differential (05/29/2024 5:35 AM EDT) Blasts % 0 % LAB HEMATOLOGY METHOD 05/29/2024 8:34 AM EDT [facility] Promyelocytes % 0 % LAB HEMATOLOGY METHOD 05/29/2024 8:34 AM EDT [facility] Myelocytes % 4 % LAB HEMATOLOGY METHOD 05/29/2024 8:34 AM EDT [facility] Metamyelocytes % 5 % LAB HEMATOLOGY METHOD 05/29/2024 8:34 AM EDT [facility] Neutrophils % 82 % LAB HEMATOLOGY METHOD 05/29/2024 8:34 AM EDT [facility] Lymphocytes % 3 % LAB HEMATOLOGY METHOD 05/29/2024 8:34 AM EDT [facility] Reactive Lymphocytes % 1 % LAB HEMATOLOGY METHOD 05/29/2024 8:34 AM EDT [facility] Monocytes % 3 % LAB HEMATOLOGY METHOD 05/29/2024 8:34 AM EDT [facility] Eosinophils % 2 % LAB HEMATOLOGY METHOD 05/29/2024 8:34 AM EDT [facility] Basophils % 0 % LAB HEMATOLOGY METHOD 05/29/2024 8:34 AM EDT [facility] Blasts Absolute 0.00 10*3/UL LAB HEMATOLOGY METHOD 05/29/2024 8:34 AM EDT [facility] Promyelocytes Absolute 0.00 10*3/uL LAB HEMATOLOGY METHOD 05/29/2024 8:34 AM EDT [facility] Myelocytes Absolute 0.90 10*3/uL LAB HEMATOLOGY METHOD 05/29/2024 8:34 AM EDT [facility] Metamyelocytes Absolute 1.13 10*3/uL LAB HEMATOLOGY METHOD 05/29/2024 8:34 AM EDT [facility] Neutrophils Absolute 18.47(H) 1.60 - 6.10 10*3/uL LAB HEMATOLOGY METHOD 05/29/2024 8:34 AM EDT [facility] Lymphocytes Absolute 0.68(L) 1.20 - 3.90 10*3/uL LAB HEMATOLOGY METHOD 05/29/2024 8:34 AM EDT [facility] Reactive Lymphocytes Absolute 0.23 10*3/uL LAB HEMATOLOGY METHOD 05/29/2024 8:34 AM EDT [facility] Monocytes Absolute 0.68 0.30 - 0.90 10*3/uL LAB HEMATOLOGY METHOD 05/29/2024 8:34 AM EDT [facility] Eosinophils Absolute 0.45 0.00 - 0.50 10*3/uL LAB HEMATOLOGY METHOD 05/29/2024 8:34 AM EDT [facility] Basophils Absolute 0.00 0.00 - 0.10 10*3/uL LAB HEMATOLOGY METHOD 05/29/2024 8:34 AM EDT [facility] Blood Blood sample taken from central line / Unknown Venipuncture / Unknown 05/29/2024 5:35 AM EDT 05/29/2024 5:56 AM EDT us Maite Austin MD LAB BLOOD ORDERABLES Final Resu lt [facility] [address] [place] [address] * (ABNORMAL) Renal Function Panel, Plasma (05/29/2024 5:35 AM EDT) Glucose, Plasma 600(HH) 74 - 99 mg/dL 05/29/2024 6:46 AM EDT [facility] BUN, Plasma 12 7 - 21 mg/dL 05/29/2024 6:46 AM EDT [facility] Creatinine, Plasma 0.59(L) 0.60 - 1.10 mg/dL 05/29/2024 6:46 AM EDT [facility] BUN/Creatinine Ratio 20 05/29/2024 6:46 AM EDT [facility] Sodium, Plasma 128(L) 136 - 145 mmol/L 05/29/2024 6:46 AM EDT [facility] Potassium, Plasma 5.1(H) 3.6 - 4.9 mmol/L 05/29/2024 6:46 AM EDT [facility] Chloride, Plasma 95(L) 97 - 107 mmol/L 05/29/2024 6:46 AM EDT [facility] CO2, Plasma 22 22 - 29 mmol/L 05/29/2024 6:46 AM EDT [facility] Anion Gap 11 6 - 16 mmol/L 05/29/2024 6:46 AM EDT [facility] Total Calcium, Plasma 8.1(L) 8.9 - 10.2 mg/dL 05/29/2024 6:46 AM EDT [facility] Phosphorus, Plasma 5.6(H) 2.5 - 4.5 mg/dL 05/29/2024 6:46 AM EDT [facility] Albumin, Plasma 2.0(L) 3.5 - 5.2 g/dL 05/29/2024 6:46 AM EDT [facility] eGFRcr 107.3 mL/min/1.7 3m*2 05/29/2024 6:46 AM EDT [facility] Comment:Reported eGFRcr in m L/min/1.73m2 is based the CKD-EPI 2020 equation that does not use a race coefficient. Blood Blood sample taken from central line / Unknown Venipuncture / Unknown 05/29/2024 5:35 AM EDT 05/29/2024 5:53 AM EDT us Lora Llanes APRN LAB BLOOD ORDERABLES Final Result Performing Organization Address City/[facility]/ZIP Co de Phone Number [facility] [address] [place] [address] * Magnesium, Plasma (05/29/2024 5:35 AM EDT) Pathologist [facility] Magnesium, Plasma 2.1 1.9 - 2.4 mg/dL 05/29/2024 6:46 AM EDT [facility] Blood Blood sample taken from central line / Unknown Venipuncture / Unknown 05/29/2024 5:35 AM EDT 05/29/2024 5:53 AM EDT us Maite Austin MD LAB BLOOD ORDERABLES Final Resu lt [facility] [address] [place] [address] * (ABNORMAL) CBC and Differential (05/29/2024 5:35 AM EDT) WBC Count 22.52(H) 3.70 - 10.30 10*3/uL LAB HEMATOLOGY METHOD 05/29/2024 8:34 AM EDT [facility] RBC Count 3.08(L) 3.90 - 5.20 10*6/uL LAB HEMATOLOGY METHOD 05/29/2024 8:34 AM EDT [facility] HGB 9.3(L) 11.2 - 15.7 g/dL LAB HEMATOLOGY METHOD 05/29/2024 8:34 AM EDT [facility] HCT 28.9(L) 34.0 - 45.0 % LAB HEMATOLOGY METHOD 05/29/2024 8:34 AM EDT [facility] Platelet Count 528(H) 155 - 369 10*3/uL LAB HEMATOLOGY METHOD 05/29/2024 8:34 AM EDT [facility] MCV 94 79 - 98 fL LAB HEMATOLOGY METHOD 05/29/2024 8:34 AM EDT [facility] MCH 30.2 26.0 - 32.0 pg LAB HEMATOLOGY METHOD 05/29/2024 8:34 AM EDT [facility] MCHC 32.2 30.7 - 35.5 g/dL LAB HEMATOLOGY METHOD 05/29/2024 8:34 AM EDT [facility] RDW 16.3(H) 11.5 - 14.5 % LAB HEMATOLOGY METHOD 05/29/2024 8:34 AM EDT [facility] MPV 10.0 8.8 - 12.5 fL LAB HEMATOLOGY METHOD 05/29/2024 8:34 AM EDT [facility] nRBC 0.0 <=0.0 per 100 WBCs LAB HEMATOLOGY METHOD 05/29/2024 8:34 AM EDT [facility] Differential Type Manual LAB HEMATOLOGY METHOD 05/29/2024 8:34 AM EDT [facility] Blood Blood sample taken from central line / Unknown Venipuncture / Unknown 05/29/2024 5:35 AM EDT 05/29/2024 5:56 AM EDT Narrative [facility] - 05/29/2024 8:34 AM EDT Therapeutic [...] MD LAB BLOOD ORDERABLES Final Resu lt [facility] [address] [place] [address] * XR Chest 1 View (05/29/2024 2:20 [...] Champ Oden MD on 05/29/2024 8:55 AM us Maite Austin MD IMG XR PROCEDURES Final Result * [place] NEGATIVE PRESSURE WOUND THERAPY DME >50 SQ [...] procedure: Tolerated well, no immediate complications us Maite Austin MD IN CLINIC/BEDSIDE ORDERABLES Fi nal Result * [place] CRITICAL CARE, ADDL 30 MIN (05/28/2024 11:39 [...] line in place with similar [facility]. Stable cardiac mediastinal silhouette. No new [...] LAB HEMATOLOGY METHOD 05/28/2024 1:53 AM EDT [facility] Echinocytes Present LAB HEMATOLOGY METHOD 05/28/2024 1:53 AM EDT [facility] Elliptocytes/Ova locytes Present LAB HEMATOLOGY METHOD 05/28/2024 1:53 AM EDT [facility] RBC Morphology Slide Reviewed LAB HEMATOLOGY METHOD 05/28/2024 1:53 AM EDT [facility] Platelet Estimate Platelet smear estimate consistent with automated count LAB HEMATOLOGY METHOD 05/28/2024 1:53 AM EDT [facility] Clumped Platelets Present LAB HEMATOLOGY METHOD 05/28/2024 1:53 AM EDT [facility] Blood Venous blood specimen / Unknown Venipuncture / Unknown 05/28/2024 12:47 AM EDT 05/28/2024 12:58 AM EDT us Maite Austin MD LAB BLOOD ORDERABLES Final Resu lt [facility] [address] [place] [address] * (ABNORMAL) Manual Differential (05/28/2024 12:47 AM EDT) Blasts % 0 % LAB HEMATOLOGY METHOD 05/28/2024 1:53 AM EDT [facility] Promyelocytes % 0 % LAB HEMATOLOGY METHOD 05/28/2024 1:53 AM EDT [facility] Myelocytes % 3 % LAB HEMATOLOGY METHOD 05/28/2024 1:53 AM EDT [facility] Metamyelocytes % 6 % LAB HEMATOLOGY METHOD 05/28/2024 1:53 AM EDT [facility] Neutrophils % 75 % LAB HEMATOLOGY METHOD 05/28/2024 1:53 AM EDT [facility] Lymphocytes % 8 % LAB HEMATOLOGY METHOD 05/28/2024 1:53 AM EDT [facility] Reactive Lymphocytes % 0 % LAB HEMATOLOGY METHOD 05/28/2024 1:53 AM EDT [facility] Monocytes % 4 % LAB HEMATOLOGY METHOD 05/28/2024 1:53 AM EDT [facility] Eosinophils % 2 % LAB HEMATOLOGY METHOD 05/28/2024 1:53 AM EDT [facility] Basophils % 2 % LAB HEMATOLOGY METHOD 05/28/2024 1:53 AM EDT [facility] Blasts Absolute 0.00 10*3/UL LAB HEMATOLOGY METHOD 05/28/2024 1:53 AM EDT [facility] Promyelocytes Absolute 0.00 10*3/uL LAB HEMATOLOGY METHOD 05/28/2024 1:53 AM EDT [facility] Myelocytes Absolute 0.75 10*3/uL LAB HEMATOLOGY METHOD 05/28/2024 1:53 AM EDT [facility] Metamyelocytes Absolute 1.50 10*3/uL LAB HEMATOLOGY METHOD 05/28/2024 1:53 AM EDT [facility] Neutrophils Absolute 18.75(H) 1.60 - 6.10 10*3/uL LAB HEMATOLOGY METHOD 05/28/2024 1:53 AM EDT [facility] Lymphocytes Absolute 2.00 1.20 - 3.90 10*3/uL LAB HEMATOLOGY METHOD 05/28/2024 1:53 AM EDT [facility] Reactive Lymphocytes Absolute 0.00 10*3/uL LAB HEMATOLOGY METHOD 05/28/2024 1:53 AM EDT [facility] Monocytes Absolute 1.00(H) 0.30 - 0.90 10*3/uL LAB HEMATOLOGY METHOD 05/28/2024 1:53 AM EDT [facility] Eosinophils Absolute 0.50 0.00 - 0.50 10*3/uL LAB HEMATOLOGY METHOD 05/28/2024 1:53 AM EDT [facility] Basophils Absolute 0.50(H) 0.00 - 0.10 10*3/uL LAB HEMATOLOGY METHOD 05/28/2024 1:53 AM EDT [facility] Blood Venous blood specimen / Unknown Venipuncture / Unknown 05/28/2024 12:47 AM EDT 05/28/2024 12:58 AM EDT us Maite Austin MD LAB BLOOD ORDERABLES Final Resu lt [facility] [address] [place] [id number] * (ABNORMAL) Renal Function Panel, Plasma (05/28/2024 12:47 AM EDT) Glucose, Plasma 106(H) 74 - 99 mg/dL 05/28/2024 1:27 AM EDT [facility] BUN, Plasma 15 7 - 21 mg/dL 05/28/2024 1:27 AM EDT [facility] Creatinine, Plasma 0.66 0.60 - 1.10 mg/dL 05/28/2024 1:27 AM EDT [facility] BUN/Creatinine Ratio 23 05/28/2024 1:27 AM EDT [facility] Sodium, Plasma 137 136 - 145 mmol/L 05/28/2024 1:27 AM EDT [facility] Potassium, Plasma 4.3 3.6 - 4.9 mmol/L 05/28/2024 1:27 AM EDT [facility] Chloride, Plasma 102 97 - 107 mmol/L 05/28/2024 1:27 AM EDT [facility] CO2, Plasma 26 22 - 29 mmol/L 05/28/2024 1:27 AM EDT [facility] Anion Gap 9 6 - 16 mmol/L 05/28/2024 1:27 AM EDT [facility] Total Calcium, Plasma 8.2(L) 8.9 - 10.2 mg/dL 05/28/2024 1:27 AM EDT [facility] Phosphorus, Plasma 3.8 2.5 - 4.5 mg/dL 05/28/2024 1:27 AM EDT [facility] Albumin, Plasma 2.1(L) 3.5 - 5.2 g/dL 05/28/2024 1:27 AM EDT [facility] eGFRcr 104.4 mL/min/1.7 3m*2 05/28/2024 1:27 AM EDT [facility] Comment:Reported eGFRcr in m L/min/1.73m2 is based the CKD-EPI 2020 equation that does not use a race coefficient. Blood Venous blood specimen / Unknown Venipuncture / Unknown 05/28/2024 12:47 AM EDT 05/28/2024 12:56 AM EDT us Lora Llanes APRN LAB BLOOD ORDERABLES Final Result [facility] [address] [place] [address] * Magnesium, Plasma (05/28/2024 12:47 AM EDT) Pathologist [facility] Magnesium, Plasma 1.9 1.9 - 2.4 mg/dL 05/28/2024 1:27 AM EDT [facility] Blood Venous blood specimen / Unknown Venipuncture / Unknown 05/28/2024 12:47 AM EDT 05/28/2024 12:56 AM EDT us Maite Austin MD LAB BLOOD ORDERABLES Final Resu lt Performing Organization Address City/[facility]/ZIP Co de Phone Number [facility] [address] [place] [address] * (ABNORMAL) CBC and Differential (05/28/2024 12:47 AM EDT) WBC Count 25.00(H) 3.70 - 10.30 10*3/uL LAB HEMATOLOGY METHOD 05/28/2024 1:53 AM EDT [facility] RBC Count 3.23(L) 3.90 - 5.20 10*6/uL LAB HEMATOLOGY METHOD 05/28/2024 1:53 AM EDT [facility] HGB 9.7(L) 11.2 - 15.7 g/dL LAB HEMATOLOGY METHOD 05/28/2024 1:53 AM EDT [facility] HCT 30.1(L) 34.0 - 45.0 % LAB HEMATOLOGY METHOD 05/28/2024 1:53 AM EDT [facility] Platelet Count 442(H) 155 - 369 10*3/uL LAB HEMATOLOGY METHOD 05/28/2024 1:53 AM EDT [facility] MCV 93 79 - 98 fL LAB HEMATOLOGY METHOD 05/28/2024 1:53 AM EDT [facility] MCH 30.0 26.0 - 32.0 pg LAB HEMATOLOGY METHOD 05/28/2024 1:53 AM EDT [facility] MCHC 32.2 30.7 - 35.5 g/dL LAB HEMATOLOGY METHOD 05/28/2024 1:53 AM EDT [facility] RDW 16.1(H) 11.5 - 14.5 % LAB HEMATOLOGY METHOD 05/28/2024 1:53 AM EDT [facility] MPV 10.1 8.8 - 12.5 fL LAB HEMATOLOGY METHOD 05/28/2024 1:53 AM EDT [facility] nRBC 0.0 <=0.0 per 100 WBCs LAB HEMATOLOGY METHOD 05/28/2024 1:53 AM EDT [facility] Differential Type Manual LAB HEMATOLOGY METHOD 05/28/2024 1:53 AM EDT [facility] Blood Venous blood specimen / Unknown Venipuncture / Unknown 05/28/2024 12:47 AM EDT 05/28/2024 12:58 AM EDT Narrative [facility] - 05/28/2024 1:53 AM EDT Therapeutic [...] MD LAB BLOOD ORDERABLES Final Resu lt [facility] [address] [place] [address] * XR Abdomen 1 View (05/27/2024 9:45 [...] - 99 mg/dL 05/27/2024 6:54 PM EDT [facility] Comment:Accuracy of a glucos e result [...] Comment 05/27/2024 6:54 PM EDT [facility] Hot Plate [employer] Press Offbearer ID Sp Singer 05/27/2024 6:54 PM EDT [facility] Device ID [id number] 05/27/2024 6:54 PM EDT [facility] Specimen Type POC Capillary 05/27/2024 6:54 PM EDT [facility] Blood Capillary blood specimen / Unknown 05/27/2024 6:52 PM EDT 05/27/2024 6:54 PM EDT us Maite Austin MD LAB POINT OF CARE TE ST DOCKED DEVICE UNSOLICITED RESULTS Final Result Performing Organization Address City/State/[facility] Co de Phone Number [facility] [address] [place] [address] * [place] CRITICAL CARE, E/M 30-74 MINUTES (05/27/2024 11:12 [...] LAB HEMATOLOGY METHOD 05/27/2024 6:30 AM EDT [facility] Elliptocytes/Ova locytes Present LAB HEMATOLOGY METHOD 05/27/2024 6:30 AM EDT [facility] RBC Morphology Slide Reviewed LAB HEMATOLOGY METHOD 05/27/2024 6:30 AM EDT [facility] Platelet Estimate Platelet smear estimate consistent with automated count LAB HEMATOLOGY METHOD 05/27/2024 6:30 AM EDT [facility] Clumped Platelets Present LAB HEMATOLOGY METHOD 05/27/2024 6:30 AM EDT [facility] Blood Venous blood specimen / Unknown Venipuncture / Unknown 05/27/2024 4:54 AM EDT 05/27/2024 5:03 AM EDT us Maite Austin MD LAB BLOOD ORDERABLES Final Resu lt [facility] [address] [place] [address] * (ABNORMAL) Manual Differential (05/27/2024 4:54 AM EDT) Blasts % 0 % LAB HEMATOLOGY METHOD 05/27/2024 6:30 AM EDT [facility] Promyelocytes % 0 % LAB HEMATOLOGY METHOD 05/27/2024 6:30 AM EDT [facility] Myelocytes % 3 % LAB HEMATOLOGY METHOD 05/27/2024 6:30 AM EDT [facility] Metamyelocytes % 4 % LAB HEMATOLOGY METHOD 05/27/2024 6:30 AM EDT [facility] Neutrophils % 80 % LAB HEMATOLOGY METHOD 05/27/2024 6:30 AM EDT [facility] Lymphocytes % 4 % LAB HEMATOLOGY METHOD 05/27/2024 6:30 AM EDT [facility] Reactive Lymphocytes % 0 % LAB HEMATOLOGY METHOD 05/27/2024 6:30 AM EDT [facility] Monocytes % 6 % LAB HEMATOLOGY METHOD 05/27/2024 6:30 AM EDT [facility] Eosinophils % 3 % LAB HEMATOLOGY METHOD 05/27/2024 6:30 AM EDT [facility] Basophils % 0 % LAB HEMATOLOGY METHOD 05/27/2024 6:30 AM EDT [facility] Blasts Absolute 0.00 10*3/UL LAB HEMATOLOGY METHOD 05/27/2024 6:30 AM EDT [facility] Promyelocytes Absolute 0.00 10*3/uL LAB HEMATOLOGY METHOD 05/27/2024 6:30 AM EDT [facility] Myelocytes Absolute 0.92 10*3/uL LAB HEMATOLOGY METHOD 05/27/2024 6:30 AM EDT [facility] Metamyelocytes Absolute 1.23 10*3/uL LAB HEMATOLOGY METHOD 05/27/2024 6:30 AM EDT [facility] Neutrophils Absolute 24.62(H) 1.60 - 6.10 10*3/uL LAB HEMATOLOGY METHOD 05/27/2024 6:30 AM EDT [facility] Lymphocytes Absolute 1.23 1.20 - 3.90 10*3/uL LAB HEMATOLOGY METHOD 05/27/2024 6:30 AM EDT [facility] Reactive Lymphocytes Absolute 0.00 10*3/uL LAB HEMATOLOGY METHOD 05/27/2024 6:30 AM EDT [facility] Monocytes Absolute 1.85(H) 0.30 - 0.90 10*3/uL LAB HEMATOLOGY METHOD 05/27/2024 6:30 AM EDT [facility] Eosinophils Absolute 0.92(H) 0.00 - 0.50 10*3/uL LAB HEMATOLOGY METHOD 05/27/2024 6:30 AM EDT [facility] Basophils Absolute 0.00 0.00 - 0.10 10*3/uL LAB HEMATOLOGY METHOD 05/27/2024 6:30 AM EDT [facility] Blood Venous blood specimen / Unknown Venipuncture / Unknown 05/27/2024 4:54 AM EDT 05/27/2024 5:03 AM EDT us Maite Austin MD LAB BLOOD ORDERABLES Final Resu lt [facility] [address] [place] [address] * (ABNORMAL) Renal Function Panel, Plasma (05/27/2024 4:54 AM EDT) Glucose, Plasma 127(H) 74 - 99 mg/dL 05/27/2024 5:34 AM EDT [facility] BUN, Plasma 16 7 - 21 mg/dL 05/27/2024 5:34 AM EDT [facility] Creatinine, Plasma 0.71 0.60 - 1.10 mg/dL 05/27/2024 5:34 AM EDT [facility] BUN/Creatinine Ratio 23 05/27/2024 5:34 AM EDT [facility] Sodium, Plasma 134(L) 136 - 145 mmol/L 05/27/2024 5:34 AM EDT [facility] Potassium, Plasma 4.1 3.6 - 4.9 mmol/L 05/27/2024 5:34 AM EDT [facility] Chloride, Plasma 99 97 - 107 mmol/L 05/27/2024 5:34 AM EDT [facility] CO2, Plasma 26 22 - 29 mmol/L 05/27/2024 5:34 AM EDT [facility] Anion Gap 9 6 - 16 mmol/L 05/27/2024 5:34 AM EDT [facility] Total Calcium, Plasma 8.4(L) 8.9 - 10.2 mg/dL 05/27/2024 5:34 AM EDT [facility] Phosphorus, Plasma 4.7(H) 2.5 - 4.5 mg/dL 05/27/2024 5:34 AM EDT [facility] Albumin, Plasma 2.1(L) 3.5 - 5.2 g/dL 05/27/2024 5:34 AM EDT [facility] eGFRcr 101.2 mL/min/1.7 3m*2 05/27/2024 5:34 AM EDT [facility] Comment:Reported eGFRcr in m L/min/1.73m2 is based the CKD-EPI 2020 equation that does not use a race coefficient. Blood Venous blood specimen / Unknown Venipuncture / Unknown 05/27/2024 4:54 AM EDT 05/27/2024 5:02 AM EDT us Lora Llanes [employer] LAB BLOOD ORDERABLES Final Result [facility] [address] [place] [address] * Magnesium, Plasma (05/27/2024 4:54 AM EDT) Magnesium, Plasma 2.1 1.9 - 2.4 mg/dL 05/27/2024 5:34 AM EDT [facility] Blood Venous blood specimen / Unknown Venipuncture / Unknown 05/27/2024 4:54 AM EDT 05/27/2024 5:02 AM EDT us Maite Austin MD LAB BLOOD ORDERABLES Final Resu lt [facility] [address] [place] [address] * (ABNORMAL) CBC and Differential (05/27/2024 4:54 AM EDT) Pathologist [facility] WBC Count 30.77(H) 3.70 - 10.30 10*3/uL LAB HEMATOLOGY METHOD 05/27/2024 6:30 AM EDT [facility] RBC Count 3.22(L) 3.90 - 5.20 10*6/uL LAB HEMATOLOGY METHOD 05/27/2024 6:30 AM EDT [facility] HGB 9.5(L) 11.2 - 15.7 g/dL LAB HEMATOLOGY METHOD 05/27/2024 6:30 AM EDT [facility] HCT 29.8(L) 34.0 - 45.0 % LAB HEMATOLOGY METHOD 05/27/2024 6:30 AM EDT [facility] Platelet Count 413(H) 155 - 369 10*3/uL LAB HEMATOLOGY METHOD 05/27/2024 6:30 AM EDT [facility] MCV 93 79 - 98 fL LAB HEMATOLOGY METHOD 05/27/2024 6:30 AM EDT [facility] MCH 29.5 26.0 - 32.0 pg LAB HEMATOLOGY METHOD 05/27/2024 6:30 AM EDT [facility] MCHC 31.9 30.7 - 35.5 g/dL LAB HEMATOLOGY METHOD 05/27/2024 6:30 AM EDT [facility] RDW 15.9(H) 11.5 - 14.5 % LAB HEMATOLOGY METHOD 05/27/2024 6:30 AM EDT [facility] MPV 10.2 8.8 - 12.5 fL LAB HEMATOLOGY METHOD 05/27/2024 6:30 AM EDT [facility] nRBC 0.3(H) <=0.0 per 100 WBCs LAB HEMATOLOGY METHOD 05/27/2024 6:30 AM EDT [facility] Differential Type Manual LAB HEMATOLOGY METHOD 05/27/2024 6:30 AM EDT [facility] Blood Venous blood specimen / Unknown Venipuncture / Unknown 05/27/2024 4:54 AM EDT 05/27/2024 5:03 AM EDT Narrative [facility] - 05/27/2024 6:30 AM EDT Therapeutic [...] MD LAB BLOOD ORDERABLES Final Resu lt [facility] [address] [place] [address] * XR Chest 1 View (05/27/2024 2:37 [...] Zahraa Berger MD on 05/27/2024 12:10 PM Maite Austin MD IMG XR PROCEDURES Final Result * Transfuse RBC (05/26/2024 6:44 PM EDT) us Maite Austin MD BLOOD TRANSFUSION ORDERABLES Fi nal Result * Transfuse RBC: 1 Units (05/26/2024 6:44 PM EDT) us Maite Austin MD BLOOD TRANSFUSION ORDERABLES Fi nal Result * (ABNORMAL) POCT glucose meter (05/26/2024 6:18 PM EDT) POCT Glucose 124(H) 74 - 99 mg/dL 05/26/2024 6:19 PM EDT [facility] Comment:Accuracy [...] 05/26/2024 6:19 PM EDT [facility] Hot Plate Plywood Press Offbearer ID Reyna Le 05/26/2024 6:19 PM EDT [facility] Device ID [id number] 05/26/2024 6:19 PM EDT [facility] Specimen Type POC Capillary 05/26/2024 6:19 PM EDT [facility] Blood Capillary blood specimen / Unknown 05/26/2024 6:18 PM EDT 05/26/2024 6:19 PM EDT Maite Austin MD LAB POINT OF CARE TE ST DOCKED DEVICE UNSOLICITED RESULTS Final Result [facility] [address] [place] [id number] * XR Chest 1 View (05/26/2024 4:30 [...] 05/26/2024 5:12 PM Final report signed by oLrri Lopez MD on 05/26/2024 5:17 PM us Maite Austin MD IMG XR PROCEDURES Final Result * [facility], ADDL 30 MIN (05/26/2024 3:17 [...] 3:12 PM EDT 05/26/2024 3:27 PM EDT us Maite Austin MD LAB BLOOD BANK TEST ORDERABLES Final Result BLOOD BANK [address] [place] [address], * Prepare Leukocyte Reduced RBC: 1 Units (05/26/2024 2:21 PM EDT) Product Code [id number] HIEN Lai BANK Dispense Status Transfused BLOOD BANK Blood Expiration Date [id number] BLOOD BANK Unit Number [id number] CH B LOOD BANK Product Blood Type 7300 BLOOD BANK Blood Type B+ BLOOD BANK Crossmatch Compatible BLOOD BANK Other Maite Austin MD BLOOD BANK PRODUCT ORDERABLES F inal Result Performing Organization Address [facility] Co de Phone Number BLOOD BANK [address] * (ABNORMAL) POCT glucose meter (05/26/2024 12:19 PM EDT) [facility] POCT Glucose 129(H) 74 - 99 mg/dL [...] for testing. Comment 05/26/2024 12:21 PM EDT [facility] Hot Plate Plywood Press Offbearer ID Reyna Le 05/26/2024 12:21 PM EDT [facility] Device ID [id number] 05/26/2024 12:21 PM EDT [facility] Specimen Type POC Capillary 05/26/2024 12:21 PM EDT [facility] Blood Capillary blood specimen / Unknown 05/26/2024 12:19 PM EDT 05/26/2024 12:21 PM EDT us Maite Austin MD LAB POINT OF CARE TE ST DOCKED DEVICE UNSOLICITED RESULTS Final Result Performing Organization Address City/[facility]/ZIP Co de Phone Number [facility] [address] [place] [address] * Morphology (05/26/2024 3:27 AM EDT) [facility] Polychromasia Slight LAB HEMATOLOGY METHOD 05/26/2024 4:24 AM EDT [facility] Elliptocytes/Ova locytes Present LAB HEMATOLOGY METHOD 05/26/2024 4:24 AM EDT [facility] RBC Morphology Slide Reviewed LAB HEMATOLOGY METHOD 05/26/2024 4:24 AM EDT [facility] Target Cells Present LAB HEMATOLOGY METHOD 05/26/2024 4:24 AM EDT [facility] Platelet Estimate Platelet smear estimate consistent with automated count LAB HEMATOLOGY METHOD 05/26/2024 4:24 AM EDT [facility] Clumped Platelets Present LAB HEMATOLOGY METHOD 05/26/2024 4:24 AM EDT [facility] Blood Venous blood specimen / Unknown Venipuncture / Unknown 05/26/2024 3:27 AM EDT 05/26/2024 3:38 AM EDT us Maite Austin MD LAB BLOOD ORDERABLES Final Resu lt [facility] [address] [place] [address] * (ABNORMAL) Manual Differential (05/26/2024 3:27 AM EDT) Blasts % 0 % LAB HEMATOLOGY METHOD 05/26/2024 4:24 AM EDT [facility] Promyelocytes % 0 % LAB HEMATOLOGY METHOD 05/26/2024 4:24 AM EDT [facility] Myelocytes % 0 % LAB HEMATOLOGY METHOD 05/26/2024 4:24 AM EDT [facility] Metamyelocytes % 0 % LAB HEMATOLOGY METHOD 05/26/2024 4:24 AM EDT [facility] Neutrophils % 81 % LAB HEMATOLOGY METHOD 05/26/2024 4:24 AM EDT [facility] Lymphocytes % 9 % LAB HEMATOLOGY METHOD 05/26/2024 4:24 AM EDT [facility] Reactive Lymphocytes % 0 % LAB HEMATOLOGY METHOD 05/26/2024 4:24 AM EDT [facility] Monocytes % 10 % LAB HEMATOLOGY METHOD 05/26/2024 4:24 AM EDT [facility] Eosinophils % 0 % LAB HEMATOLOGY METHOD 05/26/2024 4:24 AM EDT [facility] Basophils % 0 % LAB HEMATOLOGY METHOD 05/26/2024 4:24 AM EDT [facility] Blasts Absolute 0.00 10*3/UL LAB HEMATOLOGY METHOD 05/26/2024 4:24 AM EDT [facility] Promyelocytes Absolute 0.00 10*3/uL LAB HEMATOLOGY METHOD 05/26/2024 4:24 AM EDT [facility] Myelocytes Absolute 0.00 10*3/uL LAB HEMATOLOGY METHOD 05/26/2024 4:24 AM EDT [facility] Metamyelocytes Absolute 0.00 10*3/uL LAB HEMATOLOGY METHOD 05/26/2024 4:24 AM EDT [facility] Neutrophils Absolute 28.12(H) 1.60 - 6.10 10*3/uL LAB HEMATOLOGY METHOD 05/26/2024 4:24 AM EDT [facility] Lymphocytes Absolute 3.12 1.20 - 3.90 10*3/uL LAB HEMATOLOGY METHOD 05/26/2024 4:24 AM EDT [facility] Reactive Lymphocytes Absolute 0.00 10*3/uL LAB HEMATOLOGY METHOD 05/26/2024 4:24 AM EDT [facility] Monocytes Absolute 3.47(H) 0.30 - 0.90 10*3/uL LAB HEMATOLOGY METHOD 05/26/2024 4:24 AM EDT [facility] Eosinophils Absolute 0.00 0.00 - 0.50 10*3/uL LAB HEMATOLOGY METHOD 05/26/2024 4:24 AM EDT [facility] Basophils Absolute 0.00 0.00 - 0.10 10*3/uL LAB HEMATOLOGY METHOD 05/26/2024 4:24 AM EDT [facility] Blood Venous blood specimen / Unknown Venipuncture / Unknown 05/26/2024 3:27 AM EDT 05/26/2024 3:38 AM EDT us Maite Austin MD LAB BLOOD ORDERABLES Final Resu lt [facility] [address] [place] [address] * (ABNORMAL) Renal Function Panel, Plasma (05/26/2024 3:27 AM EDT) Glucose, Plasma 122(H) 74 - 99 mg/dL 05/26/2024 4:12 AM EDT [facility] BUN, Plasma 17 7 - 21 mg/dL 05/26/2024 4:12 AM EDT [facility] Creatinine, Plasma 0.73 0.60 - 1.10 mg/dL 05/26/2024 4:12 AM EDT [facility] BUN/Creatinine Ratio 23 05/26/2024 4:12 AM EDT [facility] Sodium, Plasma 136 136 - 145 mmol/L 05/26/2024 4:12 AM EDT [facility] Potassium, Plasma 4.5 3.6 - 4.9 mmol/L 05/26/2024 4:12 AM EDT [facility] Chloride, Plasma 104 97 - 107 mmol/L 05/26/2024 4:12 AM EDT [facility] CO2, Plasma 24 22 - 29 mmol/L 05/26/2024 4:12 AM EDT [facility] Anion Gap 8 6 - 16 mmol/L 05/26/2024 4:12 AM EDT [facility] Total Calcium, Plasma 7.8(L) 8.9 - 10.2 mg/dL 05/26/2024 4:12 AM EDT [facility] Phosphorus, Plasma 4.0 2.5 - 4.5 mg/dL 05/26/2024 4:12 AM EDT [facility] Albumin, Plasma 2.0(L) 3.5 - 5.2 g/dL 05/26/2024 4:12 AM EDT [facility] eGFRcr 97.9 mL/min/1.7 3m*2 05/26/2024 4:12 AM EDT [facility] Comment:Reported eGFRcr in m L/min/1.73m2 is based the CKD-EPI 2020 equation that does not use a race coefficient. Blood Venous blood specimen / Unknown Venipuncture / Unknown 05/26/2024 3:27 AM EDT 05/26/2024 3:38 AM EDT us Lora Llanes APRN LAB BLOOD ORDERABLES Final Result [facility] [address] [place] [address] * Magnesium, Plasma (05/26/2024 3:27 AM EDT) Magnesium, Plasma 2.1 1.9 - 2.4 mg/dL 05/26/2024 4:12 AM EDT [facility] Blood Venous blood specimen / Unknown Venipuncture / Unknown 05/26/2024 3:27 AM EDT 05/26/2024 3:38 AM EDT us Maite Austin MD LAB BLOOD ORDERABLES Final Resu lt [facility] [address] [place] [address] * (ABNORMAL) CBC and Differential (05/26/2024 3:27 AM EDT) WBC Count 34.71(H) 3.70 - 10.30 10*3/uL LAB HEMATOLOGY METHOD 05/26/2024 4:24 AM EDT [facility] RBC Count 2.35(L) 3.90 - 5.20 10*6/uL LAB HEMATOLOGY METHOD 05/26/2024 4:24 AM EDT [facility] HGB 7.1(L) 11.2 - 15.7 g/dL LAB HEMATOLOGY METHOD 05/26/2024 4:24 AM EDT [facility] HCT 22.4(L) 34.0 - 45.0 % LAB HEMATOLOGY METHOD 05/26/2024 4:24 AM EDT [facility] Platelet Count 378(H) 155 - 369 10*3/uL LAB HEMATOLOGY METHOD 05/26/2024 4:24 AM EDT [facility] MCV 95 79 - 98 fL LAB HEMATOLOGY METHOD 05/26/2024 4:24 AM EDT [facility] MCH 30.2 26.0 - 32.0 pg LAB HEMATOLOGY METHOD 05/26/2024 4:24 AM EDT [facility] MCHC 31.7 30.7 - 35.5 g/dL LAB HEMATOLOGY METHOD 05/26/2024 4:24 AM EDT [facility] RDW 16.7(H) 11.5 - 14.5 % LAB HEMATOLOGY METHOD 05/26/2024 4:24 AM EDT [facility] MPV 10.2 8.8 - 12.5 fL LAB HEMATOLOGY METHOD 05/26/2024 4:24 AM EDT [facility] nRBC 0.3(H) <=0.0 per 100 WBCs LAB HEMATOLOGY METHOD 05/26/2024 4:24 AM EDT [facility] Differential Type Manual LAB HEMATOLOGY METHOD 05/26/2024 4:24 AM EDT [facility] Blood Venous blood specimen / Unknown Venipuncture / Unknown 05/26/2024 3:27 AM EDT 05/26/2024 3:38 AM EDT Narrative [facility] - 05/26/2024 4:24 AM EDT Therapeutic [...] MD LAB BLOOD ORDERABLES Final Resu lt [facility] [address] [place] [address] * XR Chest 1 View (05/26/2024 2:09 [...] LAB HEMATOLOGY METHOD 05/25/2024 8:51 PM EDT [facility] HCT 23.1(L) 34.0 - 45.0 % LAB HEMATOLOGY METHOD 05/25/2024 8:51 PM EDT [facility] Blood Arterial blood specimen / Unknown Venipuncture / Unknown 05/25/2024 8:32 PM EDT 05/25/2024 8:45 PM EDT us Lora Llanes APRN LAB BLOOD ORDERABLES Final Result Performing Organization Address City/[facility] Co de Phone Number [facility] [address] [place] [address] * (ABNORMAL) POCT glucose meter (05/25/2024 6:17 PM EDT) POCT Glucose 116(H) 74 - 99 mg/dL [...] Comment 05/25/2024 6:19 PM EDT [facility] Hot Plate [employer]wood Press Offbearer ID Sp Singer 05/25/2024 6:19 PM EDT [facility] Device ID [id number] 05/25/2024 6:19 PM EDT [facility] Specimen Type POC Arterial 05/25/2024 6:19 PM EDT [facility] Blood Arterial blood specimen / Unknown 05/25/2024 6:17 PM EDT 05/25/2024 6:19 PM EDT us Maite Austin MD LAB POINT OF CARE TE ST DOCKED DEVICE UNSOLICITED RESULTS Final Result Performing Organization Address City/[facility] Co de Phone Number [facility] [address] [place] [address] * (ABNORMAL) Hemoglobin and hematocrit, blood (05/25/2024 1:55 PM EDT) HGB 7.4(L) 11.2 - 15.7 g/dL LAB HEMATOLOGY METHOD 05/25/2024 2:26 PM EDT [facility] HCT 23.6(L) 34.0 - 45.0 % LAB HEMATOLOGY METHOD 05/25/2024 2:26 PM EDT [facility] Blood Arterial blood specimen / Unknown Arterial Line / Unknown 05/25/2024 1:55 PM EDT 05/25/2024 2:19 PM EDT us Maite Austin MD LAB BLOOD ORDERABLES Final Resu lt [facility] [address] [place] [address] * (ABNORMAL) Hemogram (CBC) (05/25/2024 8:11 AM EDT) WBC Count 41.23(H) 3.70 - 10.30 10*3/uL LAB HEMATOLOGY METHOD 05/25/2024 8:28 AM EDT [facility] RBC Count 2.42(L) 3.90 - 5.20 10*6/uL LAB HEMATOLOGY METHOD 05/25/2024 8:28 AM EDT [facility] HGB 7.2(L) 11.2 - 15.7 g/dL LAB HEMATOLOGY METHOD 05/25/2024 8:28 AM EDT [facility] HCT 22.4(L) 34.0 - 45.0 % LAB HEMATOLOGY METHOD 05/25/2024 8:28 AM EDT [facility] Platelet Count 373(H) 155 - 369 10*3/uL LAB HEMATOLOGY METHOD 05/25/2024 8:28 AM EDT [facility] MCV 93 79 - 98 fL LAB HEMATOLOGY METHOD 05/25/2024 8:28 AM EDT [facility] MCH 29.8 26.0 - 32.0 pg LAB HEMATOLOGY METHOD 05/25/2024 8:28 AM EDT [facility] MCHC 32.1 30.7 - 35.5 g/dL LAB HEMATOLOGY METHOD 05/25/2024 8:28 AM EDT [facility] RDW 16.3(H) 11.5 - 14.5 % LAB HEMATOLOGY METHOD 05/25/2024 8:28 AM EDT [facility] MPV 10.3 8.8 - 12.5 fL LAB HEMATOLOGY METHOD 05/25/2024 8:28 AM EDT [facility] nRBC 0.5(H) <=0.0 per 100 WBCs LAB HEMATOLOGY METHOD 05/25/2024 8:28 AM EDT [facility] Blood Arterial blood specimen / Unknown Arterial Line / Unknown 05/25/2024 8:11 AM EDT 05/25/2024 8:19 AM EDT Lora Llanes APRN LAB BLOOD ORDERABLES Final Result Performing Organization Address [facility] Co de Phone Number [facility] [address] [place] [address] * (ABNORMAL) POCT glucose meter (05/25/2024 6:26 [...] Comment 05/25/2024 6:28 AM EDT [facility] Hot Plate [employer]wood Press Offbearer ID Bry Chambers, Vivien 05/25/2024 6:28 AM EDT [facility] Device ID [id number] 05/25/2024 6:28 AM EDT [facility] Specimen Type POC Arterial 05/25/2024 6:28 AM EDT [facility] Blood Arterial blood specimen / Unknown 05/25/2024 6:26 AM EDT 05/25/2024 6:28 AM EDT us Maite Austin MD LAB POINT OF CARE TE ST DOCKED DEVICE UNSOLICITED RESULTS Final Result Performing Organization Address City/[facility]/ZIP Co de Phone Number [facility] [address] [place] [address] * XR Chest 1 View (05/25/2024 3:07 [...] LAB HEMATOLOGY METHOD 05/25/2024 4:34 AM EDT [facility] Echinocytes Present LAB HEMATOLOGY METHOD 05/25/2024 4:34 AM EDT [facility] RBC Morphology Slide Reviewed LAB HEMATOLOGY METHOD 05/25/2024 4:34 AM EDT [facility] Platelet Estimate Platelet smear estimate consistent with automated count LAB HEMATOLOGY METHOD 05/25/2024 4:34 AM EDT [facility] Blood Venous blood specimen / Unknown Venipuncture / Unknown 05/25/2024 2:45 AM EDT 05/25/2024 2:52 AM EDT us Maite Austin MD LAB BLOOD ORDERABLES Final Resu lt [facility] [address] [place] [address] * (ABNORMAL) Manual Differential (05/25/2024 2:45 AM EDT) Blasts % 0 % LAB HEMATOLOGY METHOD 05/25/2024 4:34 AM EDT [facility] Promyelocytes % 0 % LAB HEMATOLOGY METHOD 05/25/2024 4:34 AM EDT [facility] Myelocytes % 1 % LAB HEMATOLOGY METHOD 05/25/2024 4:34 AM EDT [facility] Metamyelocytes % 5 % LAB HEMATOLOGY METHOD 05/25/2024 4:34 AM EDT [facility] Neutrophils % 80 % LAB HEMATOLOGY METHOD 05/25/2024 4:34 AM EDT [facility] Lymphocytes % 5 % LAB HEMATOLOGY METHOD 05/25/2024 4:34 AM EDT [facility] Reactive Lymphocytes % 0 % LAB HEMATOLOGY METHOD 05/25/2024 4:34 AM EDT [facility] Monocytes % 8 % LAB HEMATOLOGY METHOD 05/25/2024 4:34 AM EDT [facility] Eosinophils % 1 % LAB HEMATOLOGY METHOD 05/25/2024 4:34 AM EDT [facility] Basophils % 0 % LAB HEMATOLOGY METHOD 05/25/2024 4:34 AM EDT [facility] Blasts Absolute 0.00 10*3/UL LAB HEMATOLOGY METHOD 05/25/2024 4:34 AM EDT [facility] Promyelocytes Absolute 0.00 10*3/uL LAB HEMATOLOGY METHOD 05/25/2024 4:34 AM EDT [facility] Myelocytes Absolute 0.42 10*3/uL LAB HEMATOLOGY METHOD 05/25/2024 4:34 AM EDT [facility] Metamyelocytes Absolute 2.09 10*3/uL LAB HEMATOLOGY METHOD 05/25/2024 4:34 AM EDT [facility] Neutrophils Absolute 33.52(H) 1.60 - 6.10 10*3/uL LAB HEMATOLOGY METHOD 05/25/2024 4:34 AM EDT [facility] Lymphocytes Absolute 2.09 1.20 - 3.90 10*3/uL LAB HEMATOLOGY METHOD 05/25/2024 4:34 AM EDT [facility] Reactive Lymphocytes Absolute 0.00 10*3/uL LAB HEMATOLOGY METHOD 05/25/2024 4:34 AM EDT [facility] Monocytes Absolute 3.35(H) 0.30 - 0.90 10*3/uL LAB HEMATOLOGY METHOD 05/25/2024 4:34 AM EDT [facility] Eosinophils Absolute 0.42 0.00 - 0.50 10*3/uL LAB HEMATOLOGY METHOD 05/25/2024 4:34 AM EDT [facility] Basophils Absolute 0.00 0.00 - 0.10 10*3/uL LAB HEMATOLOGY METHOD 05/25/2024 4:34 AM EDT [facility] Blood Venous blood specimen / Unknown Venipuncture / Unknown 05/25/2024 2:45 AM EDT 05/25/2024 2:52 AM EDT us Maite Austin MD LAB BLOOD ORDERABLES Final Resu lt [facility] [address] [place] [address] * (ABNORMAL) Renal Function Panel, Plasma (05/25/2024 2:45 AM EDT) Glucose, Plasma 126(H) 74 - 99 mg/dL 05/25/2024 3:29 AM EDT [facility] BUN, Plasma 20 7 - 21 mg/dL 05/25/2024 3:29 AM EDT [facility] Creatinine, Plasma 0.91 0.60 - 1.10 mg/dL 05/25/2024 3:29 AM EDT [facility] BUN/Creatinine Ratio 22 05/25/2024 3:29 AM EDT [facility] Sodium, Plasma 138 136 - 145 mmol/L 05/25/2024 3:29 AM EDT [facility] Potassium, Plasma 5.0(H) 3.6 - 4.9 mmol/L 05/25/2024 3:29 AM EDT [facility] Chloride, Plasma 107 97 - 107 mmol/L 05/25/2024 3:29 AM EDT [facility] CO2, Plasma 25 22 - 29 mmol/L 05/25/2024 3:29 AM EDT [facility] Anion Gap 6 6 - 16 mmol/L 05/25/2024 3:29 AM EDT [facility] Total Calcium, Plasma 7.7(L) 8.9 - 10.2 mg/dL 05/25/2024 3:29 AM EDT [facility] Phosphorus, Plasma 3.5 2.5 - 4.5 mg/dL 05/25/2024 3:29 AM EDT [facility] Albumin, Plasma 1.9(L) 3.5 - 5.2 g/dL 05/25/2024 3:29 AM EDT [facility] eGFRcr 75.1 mL/min/1.7 3m*2 05/25/2024 3:29 AM EDT [facility] Comment:Reported eGFRcr in m L/min/1.73m2 is based the CKD-EPI 2020 equation that does not use a race coefficient. Blood Venous blood specimen / Unknown Venipuncture / Unknown 05/25/2024 2:45 AM EDT 05/25/2024 2:52 AM EDT us Lora Llanes APRN LAB BLOOD ORDERABLES Final Result Performing Organization Address [facility] Co de Phone Number [facility] [address] [place] [address] * Magnesium, Plasma (05/25/2024 2:45 AM EDT) Magnesium, Plasma 2.4 1.9 - 2.4 mg/dL 05/25/2024 3:29 AM EDT [facility] Blood Venous blood specimen / Unknown Venipuncture / Unknown 05/25/2024 2:45 AM EDT 05/25/2024 2:52 AM EDT us Maite Austin MD LAB BLOOD ORDERABLES Final Resu lt [facility] [address] [facility] [place] [address] * (ABNORMAL) CBC and Differential (05/25/2024 2:45 AM EDT) WBC Count 41.90(H) 3.70 - 10.30 10*3/uL LAB HEMATOLOGY METHOD 05/25/2024 4:34 AM EDT [facility] RBC Count 2.50(L) 3.90 - 5.20 10*6/uL LAB HEMATOLOGY METHOD 05/25/2024 4:34 AM EDT [facility] HGB 7.5(L) 11.2 - 15.7 g/dL LAB HEMATOLOGY METHOD 05/25/2024 4:34 AM EDT [facility] HCT 23.1(L) 34.0 - 45.0 % LAB HEMATOLOGY METHOD 05/25/2024 4:34 AM EDT [facility] Platelet Count 352 155 - 369 10*3/uL LAB HEMATOLOGY METHOD 05/25/2024 4:34 AM EDT [facility] MCV 92 79 - 98 fL LAB HEMATOLOGY METHOD 05/25/2024 4:34 AM EDT [facility] MCH 30.0 26.0 - 32.0 pg LAB HEMATOLOGY METHOD 05/25/2024 4:34 AM EDT [facility] MCHC 32.5 30.7 - 35.5 g/dL LAB HEMATOLOGY METHOD 05/25/2024 4:34 AM EDT [facility] RDW 16.2(H) 11.5 - 14.5 % LAB HEMATOLOGY METHOD 05/25/2024 4:34 AM EDT [facility] MPV 10.3 8.8 - 12.5 fL LAB HEMATOLOGY METHOD 05/25/2024 4:34 AM EDT [facility] SYSTEM LAB nRBC 0.6(H) <=0.0 per 100 WBCs LAB HEMATOLOGY METHOD 05/25/2024 4:34 AM EDT [facility] Differential Type Manual LAB HEMATOLOGY METHOD 05/25/2024 4:34 AM EDT [facility] Blood Venous blood specimen / Unknown Venipuncture / Unknown 05/25/2024 2:45 AM EDT 05/25/2024 2:52 AM EDT [facility] - 05/25/2024 4:34 AM EDT Therapeutic [...] MD LAB BLOOD ORDERABLES Final Resu lt [facility] [address] [place] [address] * [place] [facility], E/M 30-74 MINUTES (05/24/2024 11:04 [...] LAB HEMATOLOGY METHOD 05/24/2024 1:46 PM EDT [facility] Echinocytes Present LAB HEMATOLOGY METHOD 05/24/2024 1:46 PM EDT [facility] RBC Morphology Slide Reviewed LAB HEMATOLOGY METHOD 05/24/2024 1:46 PM EDT [facility] Platelet Estimate Platelet smear estimate consistent with automated count LAB HEMATOLOGY METHOD 05/24/2024 1:46 PM EDT [facility] Blood Venous blood specimen / Unknown Venipuncture / Unknown 05/24/2024 10:18 AM EDT 05/24/2024 10:48 AM EDT us Maite Austin MD LAB BLOOD ORDERABLES Final Resu lt [facility] [address] [place] [address] * (ABNORMAL) Manual Differential (05/24/2024 10:18 AM EDT) Blasts % 0 % LAB HEMATOLOGY METHOD 05/24/2024 1:46 PM EDT [facility] Promyelocytes % 0 % LAB HEMATOLOGY METHOD 05/24/2024 1:46 PM EDT [facility] Myelocytes % 2 % LAB HEMATOLOGY METHOD 05/24/2024 1:46 PM EDT [facility] Metamyelocytes % 4 % LAB HEMATOLOGY METHOD 05/24/2024 1:46 PM EDT [facility] Neutrophils % 80 % LAB HEMATOLOGY METHOD 05/24/2024 1:46 PM EDT [facility] Lymphocytes % 8 % LAB HEMATOLOGY METHOD 05/24/2024 1:46 PM EDT [facility] Reactive Lymphocytes % 0 % LAB HEMATOLOGY METHOD 05/24/2024 1:46 PM EDT [facility] Monocytes % 6 % LAB HEMATOLOGY METHOD 05/24/2024 1:46 PM EDT [facility] Eosinophils % 0 % LAB HEMATOLOGY METHOD 05/24/2024 1:46 PM EDT [facility] Basophils % 0 % LAB HEMATOLOGY METHOD 05/24/2024 1:46 PM EDT [facility] Blasts Absolute 0.00 10*3/UL LAB HEMATOLOGY METHOD 05/24/2024 1:46 PM EDT [facility] Promyelocytes Absolute 0.00 10*3/uL LAB HEMATOLOGY METHOD 05/24/2024 1:46 PM EDT [facility] Myelocytes Absolute 0.70 10*3/uL LAB HEMATOLOGY METHOD 05/24/2024 1:46 PM EDT [facility] Metamyelocytes Absolute 1.41 10*3/uL LAB HEMATOLOGY METHOD 05/24/2024 1:46 PM EDT [facility] Neutrophils Absolute 28.17(H) 1.60 - 6.10 10*3/uL LAB HEMATOLOGY METHOD 05/24/2024 1:46 PM EDT [facility] Lymphocytes Absolute 2.82 1.20 - 3.90 10*3/uL LAB HEMATOLOGY METHOD 05/24/2024 1:46 PM EDT [facility] Reactive Lymphocytes Absolute 0.00 10*3/uL LAB HEMATOLOGY METHOD 05/24/2024 1:46 PM EDT [facility] Monocytes Absolute 2.11(H) 0.30 - 0.90 10*3/uL LAB HEMATOLOGY METHOD 05/24/2024 1:46 PM EDT [facility] Eosinophils Absolute 0.00 0.00 - 0.50 10*3/uL LAB HEMATOLOGY METHOD 05/24/2024 1:46 PM EDT [facility] Basophils Absolute 0.00 0.00 - 0.10 10*3/uL LAB HEMATOLOGY METHOD 05/24/2024 1:46 PM EDT [facility] Blood Venous blood specimen / Unknown Venipuncture / Unknown 05/24/2024 10:18 AM EDT 05/24/2024 10:48 AM EDT us Maite Austin MD LAB BLOOD ORDERABLES Final Resu lt [facility] [address] [place] [address] * (ABNORMAL) Basic metabolic panel (05/24/2024 10:18 AM EDT) Glucose, Plasma 182(H) 74 - 99 mg/dL 05/24/2024 11:13 AM EDT [facility] BUN, Plasma 28(H) 7 - 21 mg/dL 05/24/2024 11:13 AM EDT [facility] Creatinine, Plasma 1.18(H) 0.60 - 1.10 mg/dL 05/24/2024 11:13 AM EDT [facility] BUN/Creatinine Ratio 24 05/24/2024 11:13 AM EDT [facility] Sodium, Plasma 137 136 - 145 mmol/L 05/24/2024 11:13 AM EDT [facility] Potassium, Plasma 5.0(H) 3.6 - 4.9 mmol/L 05/24/2024 11:13 AM EDT [facility] Chloride, Plasma 106 97 - 107 mmol/L 05/24/2024 11:13 AM EDT [facility] CO2, Plasma 21(L) 22 - 29 mmol/L 05/24/2024 11:13 AM EDT [facility] Anion Gap 10 6 - 16 mmol/L 05/24/2024 11:13 AM EDT [facility] Total Calcium, Plasma 8.1(L) 8.9 - 10.2 mg/dL 05/24/2024 11:13 AM EDT [facility] eGFRcr 55.0 mL/min/1.7 3m*2 05/24/2024 11:13 AM EDT [facility] Comment:Reported eGFRcr in m L/min/1.73m2 is based the CKD-EPI 2020 equation that does not use a race coefficient. Blood Venous blood specimen / Unknown Venipuncture / Unknown 05/24/2024 10:18 AM EDT 05/24/2024 10:42 AM EDT us Maite Austin MD LAB BLOOD ORDERABLES Final Resu lt [facility] [address] [place] [address] * (ABNORMAL) Magnesium, Plasma (05/24/2024 10:18 AM EDT) Magnesium, Plasma 2.7(H) 1.9 - 2.4 mg/dL 05/24/2024 11:13 AM EDT [facility] Blood Venous blood specimen / Unknown Venipuncture / Unknown 05/24/2024 10:18 AM EDT 05/24/2024 10:42 AM EDT us Maite Austin MD LAB BLOOD ORDERABLES Final Resu lt [facility] [address] [place] [address] * (ABNORMAL) CBC and Differential (05/24/2024 10:18 AM EDT) WBC Count 35.21(H) 3.70 - 10.30 10*3/uL LAB HEMATOLOGY METHOD 05/24/2024 1:46 PM EDT [facility] RBC Count 2.93(L) 3.90 - 5.20 10*6/uL LAB HEMATOLOGY METHOD 05/24/2024 1:46 PM EDT [facility] HGB 8.7(L) 11.2 - 15.7 g/dL LAB HEMATOLOGY METHOD 05/24/2024 1:46 PM EDT [facility] HCT 26.8(L) 34.0 - 45.0 % LAB HEMATOLOGY METHOD 05/24/2024 1:46 PM EDT [facility] Platelet Count 375(H) 155 - 369 10*3/uL LAB HEMATOLOGY METHOD 05/24/2024 1:46 PM EDT [facility] MCV 92 79 - 98 fL LAB HEMATOLOGY METHOD 05/24/2024 1:46 PM EDT [facility] MCH 29.7 26.0 - 32.0 pg LAB HEMATOLOGY METHOD 05/24/2024 1:46 PM EDT [facility] MCHC 32.5 30.7 - 35.5 g/dL LAB HEMATOLOGY METHOD 05/24/2024 1:46 PM EDT [facility] RDW 15.8(H) 11.5 - 14.5 % LAB HEMATOLOGY METHOD 05/24/2024 1:46 PM EDT [facility] MPV 10.3 8.8 - 12.5 fL LAB HEMATOLOGY METHOD 05/24/2024 1:46 PM EDT [facility] nRBC 0.4(H) <=0.0 per 100 WBCs LAB HEMATOLOGY METHOD 05/24/2024 1:46 PM EDT [facility] Differential Type Manual LAB HEMATOLOGY METHOD 05/24/2024 1:46 PM EDT [facility] Blood Venous blood specimen / Unknown Venipuncture / Unknown 05/24/2024 10:18 AM EDT 05/24/2024 10:48 AM EDT Narrative [facility] - 05/24/2024 1:46 PM EDT Therapeutic [...] MD LAB BLOOD ORDERABLES Final Resu lt [facility] [address] [place] [address] * XR Chest 1 View (05/24/2024 8:51 [...] - 99 mg/dL 05/24/2024 6:11 AM EDT [facility] Comment:Accuracy of a glucos e [...] for testing. Comment 05/24/2024 6:11 AM EDT [facility] Hot Plate Plywood Press Offbearer ID SullivanPing [email or web address] 05/25/19 6:11 AM EDT [facility] Device ID [id number] 05/24/2024 6:11 AM EDT [facility] Specimen Type POC Capillary 05/24/2024 6:11 AM EDT [facility] Blood Capillary blood specimen / Unknown 05/24/2024 6:09 AM EDT 05/24/2024 6:11 AM EDT us Maite Austin MD LAB POINT OF CARE TE ST DOCKED DEVICE UNSOLICITED RESULTS Final Result [facility] [address] [place] [id number] * (ABNORMAL) Blood gas panel, arterial (05/23/2024 7:54 PM EDT) pH, Arterial 7.29(L) 7.35 - 7.45 LAB HEMATOLOGY METHOD 05/23/2024 8:04 PM EDT [facility] pCO2, Arterial 44 35 - 48 mmHg LAB HEMATOLOGY METHOD 05/23/2024 8:04 PM EDT [facility] pO2, Arterial 182(H) 83 - 108 mmHg LAB HEMATOLOGY METHOD 05/23/2024 8:04 PM EDT [facility] SO2, Measured, Arterial 100(H) 94 - 98 % LAB HEMATOLOGY METHOD 05/23/2024 8:04 PM EDT [facility] Base Excess, Arterial -5.1(L) -2.0 - 3.0 mmol/L LAB HEMATOLOGY METHOD 05/23/2024 8:04 PM EDT [facility] Bicarbonate, Calculated, Arterial 21(L) 22 - 26 mmol/L LAB HEMATOLOGY METHOD 05/23/2024 8:04 PM EDT [facility] Hematocrit, Whole Blood 34.4 34.0 - 45.0 % LAB HEMATOLOGY METHOD 05/23/2024 8:04 PM EDT [facility] Sodium, Whole Blood 133(L) 136 - 145 mmol/L LAB HEMATOLOGY METHOD 05/23/2024 8:04 PM EDT [facility] Potassium, Whole Blood 5.0(H) 3.6 - 4.9 mmol/L LAB HEMATOLOGY METHOD 05/23/2024 8:04 PM EDT [facility] Chloride, Whole Blood 107 97 - 107 mmol/L LAB HEMATOLOGY METHOD 05/23/2024 8:04 PM EDT [facility] Glucose, Whole Blood 266(H) 74 - 99 mg/dL LAB HEMATOLOGY METHOD 05/23/2024 8:04 PM EDT [facility] Ionized Calcium, Whole Blood 4.2(L) 4.6 - 5.1 mg/dL LAB HEMATOLOGY METHOD 05/23/2024 8:04 PM EDT [facility] Lactate, Arterial, Whole Blood 2.0(H) 0.5 - 1.6 mmol/L LAB HEMATOLOGY METHOD 05/23/2024 8:04 PM EDT [facility] Blood Arterial blood specimen / Unknown Arterial Puncture / Unknown 05/23/2024 7:54 PM EDT 05/23/2024 8:02 PM EDT us Maite Austin MD LAB BLOOD ORDERABLES Final Resu lt Performing Organization Address City/[facility]/ZIP Co de Phone Number [facility] [address] [place] [address] * Morphology (05/23/2024 7:39 PM EDT) Polychromasia Moderate LAB HEMATOLOGY METHOD 05/23/2024 8:47 PM EDT [facility] Echinocytes Present LAB HEMATOLOGY METHOD 05/23/2024 8:47 PM EDT [facility] RBC Morphology Slide Reviewed LAB HEMATOLOGY METHOD 05/23/2024 8:47 PM EDT [facility] Platelet Estimate Platelet smear estimate consistent with automated count LAB HEMATOLOGY METHOD 05/23/2024 8:47 PM EDT [facility] Blood Venous blood specimen / Unknown Venipuncture / Unknown 05/23/2024 7:39 PM EDT 05/23/2024 7:45 PM EDT us Reyna Obregon APRN LAB BLOOD ORDERABLES Namrata l Result [facility] [address] [place] [address] * (ABNORMAL) Manual Differential (05/23/2024 7:39 PM EDT) Blasts % 0 % LAB HEMATOLOGY METHOD 05/23/2024 8:47 PM EDT [facility] Promyelocytes % 0 % LAB HEMATOLOGY METHOD 05/23/2024 8:47 PM EDT [facility] Myelocytes % 8 % LAB HEMATOLOGY METHOD 05/23/2024 8:47 PM EDT [facility] Metamyelocytes % 4 % LAB HEMATOLOGY METHOD 05/23/2024 8:47 PM EDT [facility] Neutrophils % 76 % LAB HEMATOLOGY METHOD 05/23/2024 8:47 PM EDT [facility] Lymphocytes % 6 % LAB HEMATOLOGY METHOD 05/23/2024 8:47 PM EDT [facility] Reactive Lymphocytes % 1 % LAB HEMATOLOGY METHOD 05/23/2024 8:47 PM EDT [facility] Monocytes % 4 % LAB HEMATOLOGY METHOD 05/23/2024 8:47 PM EDT [facility] Eosinophils % 1 % LAB HEMATOLOGY METHOD 05/23/2024 8:47 PM EDT [facility] Basophils % 0 % LAB HEMATOLOGY METHOD 05/23/2024 8:47 PM EDT [facility] Blasts Absolute 0.00 10*3/UL LAB HEMATOLOGY METHOD 05/23/2024 8:47 PM EDT [facility] Promyelocytes Absolute 0.00 10*3/uL LAB HEMATOLOGY METHOD 05/23/2024 8:47 PM EDT [facility] Myelocytes Absolute 2.59 10*3/uL LAB HEMATOLOGY METHOD 05/23/2024 8:47 PM EDT [facility] Metamyelocytes Absolute 1.29 10*3/uL LAB HEMATOLOGY METHOD 05/23/2024 8:47 PM EDT [facility] Neutrophils Absolute 24.57(H) 1.60 - 6.10 10*3/uL LAB HEMATOLOGY METHOD 05/23/2024 8:47 PM EDT [facility] Lymphocytes Absolute 1.94 1.20 - 3.90 10*3/uL LAB HEMATOLOGY METHOD 05/23/2024 8:47 PM EDT [facility] Reactive Lymphocytes Absolute 0.32 10*3/uL LAB HEMATOLOGY METHOD 05/23/2024 8:47 PM EDT [facility] Monocytes Absolute 1.29(H) 0.30 - 0.90 10*3/uL LAB HEMATOLOGY METHOD 05/23/2024 8:47 PM EDT [facility] Eosinophils Absolute 0.32 0.00 - 0.50 10*3/uL LAB HEMATOLOGY METHOD 05/23/2024 8:47 PM EDT [facility] Basophils Absolute 0.00 0.00 - 0.10 10*3/uL LAB HEMATOLOGY METHOD 05/23/2024 8:47 PM EDT [facility] Blood Venous blood specimen / Unknown Venipuncture / Unknown 05/23/2024 7:39 PM EDT 05/23/2024 7:45 PM EDT us Reyna Lois Obregon [employer]S ASSEMBLER LAB BLOOD ORDERABLES Namrata l Result [facility] [address] [place] [address] * (ABNORMAL) Renal Function Panel, Plasma (05/23/2024 7:39 PM EDT) Glucose, Plasma 280(H) 74 - 99 mg/dL 05/23/2024 8:14 PM EDT [facility] BUN, Plasma 20 7 - 21 mg/dL 05/23/2024 8:14 PM EDT [facility] Creatinine, Plasma 1.06 0.60 - 1.10 mg/dL 05/23/2024 8:14 PM EDT [facility] BUN/Creatinine Ratio 19 05/23/2024 8:14 PM EDT [facility] Sodium, Plasma 137 136 - 145 mmol/L 05/23/2024 8:14 PM EDT [facility] Potassium, Plasma 5.5(H) 3.6 - 4.9 mmol/L 05/23/2024 8:14 PM EDT [facility] Chloride, Plasma 107 97 - 107 mmol/L 05/23/2024 8:14 PM EDT [facility] CO2, Plasma 20(L) 22 - 29 mmol/L 05/23/2024 8:14 PM EDT [facility] Anion Gap 10 6 - 16 mmol/L 05/23/2024 8:14 PM EDT [facility] Total Calcium, Plasma 7.5(L) 8.9 - 10.2 mg/dL 05/23/2024 8:14 PM EDT [facility] Phosphorus, Plasma 6.4(H) 2.5 - 4.5 mg/dL 05/23/2024 8:14 PM EDT [facility] Albumin, Plasma 1.7(L) 3.5 - 5.2 g/dL 05/23/2024 8:14 PM EDT [facility] eGFRcr 62.6 mL/min/1.7 3m*2 05/23/2024 8:14 PM EDT [facility] Comment:Reported eGFRcr in m L/min/1.73m2 is based the CKD-EPI 2020 equation that does not use a race coefficient. Blood Venous blood specimen / Unknown Venipuncture / Unknown 05/23/2024 7:39 PM EDT 05/23/2024 7:45 PM EDT Maite Austin MD LAB BLOOD ORDERABLES Final Resu lt Performing Organization Address [facility]/ZIP Co de Phone Number [facility] [address] [place] [address] * (ABNORMAL) Magnesium (05/23/2024 7:39 PM EDT) Magnesium, Plasma 1.8(L) 1.9 - 2.4 mg/dL 05/23/2024 8:14 PM EDT [facility] Blood Venous blood specimen / Unknown Venipuncture / Unknown 05/23/2024 7:39 PM EDT 05/23/2024 7:45 PM EDT us Maite Austin MD LAB BLOOD ORDERABLES Final Resu lt Performing Organization Address City/[facility]/ZIP Co de Phone Number [facility] [address] [place] [address] * (ABNORMAL) Comprehensive metabolic panel (05/23/2024 7:39 PM EDT) Glucose, Plasma 280(H) 74 - 99 mg/dL 05/23/2024 8:14 PM EDT [facility] BUN, Plasma 20 7 - 21 mg/dL 05/23/2024 8:14 PM EDT [facility] Creatinine, Plasma 1.06 0.60 - 1.10 mg/dL 05/23/2024 8:14 PM EDT [facility] BUN/Creatinine Ratio 19 05/23/2024 8:14 PM EDT [facility] Sodium, Plasma 137 136 - 145 mmol/L 05/23/2024 8:14 PM EDT [facility] Potassium, Plasma 5.5(H) 3.6 - 4.9 mmol/L 05/23/2024 8:14 PM EDT [facility] Chloride, Plasma 107 97 - 107 mmol/L 05/23/2024 8:14 PM EDT [facility] CO2, Plasma 20(L) 22 - 29 mmol/L 05/23/2024 8:14 PM EDT [facility] Anion Gap 10 6 - 16 mmol/L 05/23/2024 8:14 PM EDT [facility] Total Calcium, Plasma 7.5(L) 8.9 - 10.2 mg/dL 05/23/2024 8:14 PM EDT [facility] Total Protein 5.4(L) 6.3 - 7.9 g/dL 05/23/2024 8:14 PM EDT [facility] Albumin, Plasma 1.7(L) 3.5 - 5.2 g/dL 05/23/2024 8:14 PM EDT [facility] AST, Plasma 26 10 - 35 U/L 05/23/2024 8:14 PM EDT [facility] ALT, Plasma 14 10 - 35 U/L 05/23/2024 8:14 PM EDT [facility] Alkaline Phosphatase, Plasma 97 35 - 104 U/L 05/23/2024 8:14 PM EDT [facility] Total Bilirubin, Plasma 0.9 0.2 - 1.1 mg/dL 05/23/2024 8:14 PM EDT [facility] eGFRcr 62.6 mL/min/1.7 3m*2 05/23/2024 8:14 PM EDT [facility] Comment:Reported eGFRcr in m L/min/1.73m2 is based the CKD-EPI 2020 equation that does not use a race coefficient. Blood Venous blood specimen / Unknown Venipuncture / Unknown 05/23/2024 7:39 PM EDT 05/23/2024 7:45 PM EDT us Reyna A Sabas [employer] LAB BLOOD ORDERABLES Namrata l Result [facility] [address] [place] [address] * (ABNORMAL) CBC and Differential (05/23/2024 7:39 PM EDT) WBC Count 32.33(H) 3.70 - 10.30 10*3/uL LAB HEMATOLOGY METHOD 05/23/2024 8:47 PM EDT [facility] RBC Count 3.73(L) 3.90 - 5.20 10*6/uL LAB HEMATOLOGY METHOD 05/23/2024 8:47 PM EDT [facility] HGB 11.1(L) 11.2 - 15.7 g/dL LAB HEMATOLOGY METHOD 05/23/2024 8:47 PM EDT [facility] HCT 34.2 34.0 - 45.0 % LAB HEMATOLOGY METHOD 05/23/2024 8:47 PM EDT [facility] Platelet Count 497(H) 155 - 369 10*3/uL LAB HEMATOLOGY METHOD 05/23/2024 8:47 PM EDT [facility] MCV 92 79 - 98 fL LAB HEMATOLOGY METHOD 05/23/2024 8:47 PM EDT [facility] MCH 29.8 26.0 - 32.0 pg LAB HEMATOLOGY METHOD 05/23/2024 8:47 PM EDT [facility] MCHC 32.5 30.7 - 35.5 g/dL LAB HEMATOLOGY METHOD 05/23/2024 8:47 PM EDT [facility] RDW 14.8(H) 11.5 - 14.5 % LAB HEMATOLOGY METHOD 05/23/2024 8:47 PM EDT [facility] MPV 10.1 8.8 - 12.5 fL LAB HEMATOLOGY METHOD 05/23/2024 8:47 PM EDT [facility] nRBC 0.5(H) <=0.0 per 100 WBCs LAB HEMATOLOGY METHOD 05/23/2024 8:47 PM EDT [facility] Differential Type Manual LAB HEMATOLOGY METHOD 05/23/2024 8:47 PM EDT [facility] Blood Venous blood specimen / Unknown Venipuncture / Unknown 05/23/2024 7:39 PM EDT 05/23/2024 7:45 PM EDT Narrative [facility] - 05/23/2024 8:47 PM EDT Therapeutic [...] is no longer being reported. Reyna Obregon [employer]BLER LAB BLOOD ORDERABLES Namrata l Result Performing Organization Address City/State/[facility] Co de Phone Number [facility] [address] [place] [phone] * Transfuse RBC (05/23/2024 4:18 PM EDT) Mayda Bhatti LUMBER STACKER OPERATOR BLOOD TRANSFUSION ORDERABL ES Edited Result - Final * Transfuse RBC: 1 Units (05/23/2024 4:18 PM EDT) Mayda Corbett Anaflorencia LUMBER STACKER OPERATOR BLOOD TRANSFUSION ORDERABL ES Edited Result - Final * Surgical Pathology Exam (05/23/2024 4:09 PM EDT) Case Report Surgical Pathology Case: [id number] Authorizing Provider: Lidia Troncoso MD Collected: 05/23/2024 1609 Ordering Location: [facility] Received: 05/24/2024 0749 Pathologist: Elvia Morgan MD Specimen: Other (specify site), Left Colon (fresh for permanent) 05/28/2024 11:11 AM EDT [facility] Final Diagnosis LARGE INTESTINE. 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 - INVOLVEMENT OF ONE RESECTION MARGIN. 05/28/2024 11:11 AM EDT [facility] at 1111 EDT Clinical Information Colon perforation (CMS/HCC) [K63.1] s/p 4vCABG on 05/06/24. 05/28/2024 11:11 AM T [facility] Gross Description A. LEFT COLON (FRESH FOR PERMANENT) The specimens received fresh, placed in formalin labeled l eft colon and consists of a 33 cm [...] x 7.8 cm unremarkable mesentery is submitted. Field Marketer sections are submitted as follows: A1: Resection margin A2: Opposite resection margin A3-A4: Area of defect, full-thickness A5: Area of fibrosis and stricturing A6: Area of fibrosis and stricturing A7: Area of fibrosis and stricturing A8: Uninvolved colonic mucosa A9: Junction between involved in uninvolved mucosa A10: Two lymph node candidates, entirely submitted Cold Time: 2h 41m 05/28/2024 11:11 AM [facility] Note: A resident was involved in the service. I attest I examined the relevant preparations for the specimens and confirmed the diagnosis or interpretation. 05/28/2024 11:11 AM [facility] Tissue Topography unknown / Unknown 05/23/2024 4:09 PM EDT 05/24/2024 7:49 AM EDT Comment:Pre-op diagnosis: Colon perforation (CMS/HCC) [K63.1] us Lidia Troncoso MD LAB PATHOLOGY ORDERABLES Final Result [facility] [address] [place] [address] * (ABNORMAL) Blood gas, arterial (05/23/2024 2:14 PM EDT) pH, Arterial 7.44 7.35 - 7.45 LAB HEMATOLOGY METHOD 05/23/2024 2:35 PM EDT [facility] pCO2, Arterial 39 35 - 48 mmHg LAB HEMATOLOGY METHOD 05/23/2024 2:35 PM EDT [facility] pO2, Arterial 248(H) 83 - 108 mmHg LAB HEMATOLOGY METHOD 05/23/2024 2:35 PM EDT [facility] SO2, Measured, Arterial 99(H) 94 - 98 % LAB HEMATOLOGY METHOD 05/23/2024 2:35 PM EDT [facility] Base Excess, Arterial 1.8 -2.0 - 3.0 mmol/L LAB HEMATOLOGY METHOD 05/23/2024 2:35 PM EDT [facility] Bicarbonate, Calculated, Arterial 26 22 - 26 mmol/L LAB HEMATOLOGY METHOD 05/23/2024 2:35 PM EDT [facility] Hematocrit, Whole Blood 26.3(L) 34.0 - 45.0 % LAB HEMATOLOGY METHOD 05/23/2024 2:35 PM EDT [facility] Sodium, Whole Blood 137 136 - 145 mmol/L LAB HEMATOLOGY METHOD 05/23/2024 2:35 PM EDT [facility] Potassium, Whole Blood 3.9 3.6 - 4.9 mmol/L LAB HEMATOLOGY METHOD 05/23/2024 2:35 PM EDT [facility] Chloride, Whole Blood 104 97 - 107 mmol/L LAB HEMATOLOGY METHOD 05/23/2024 2:35 PM EDT [facility] Glucose, Whole Blood 134(H) 74 - 99 mg/dL LAB HEMATOLOGY METHOD 05/23/2024 2:35 PM EDT [facility] SYSTEM LAB Ionized Calcium, Whole Blood 4.4(L) 4.6 - 5.1 mg/dL LAB HEMATOLOGY METHOD 05/23/2024 2:35 PM EDT [facility] Lactate, Arterial, Whole Blood 1.2 0.5 - 1.6 mmol/L LAB HEMATOLOGY METHOD 05/23/2024 2:35 PM EDT [facility] Blood Arterial blood specimen / Unknown Arterial Puncture / Unknown 05/23/2024 2:14 PM EDT 05/23/2024 2:34 PM EDT Mayda Bhatti LUMBER STACKER OPERATOR LAB BLOOD ORDERABLES Final Result Performing Organization Address City/[facility] Co de Phone Number [facility] [address] [place] [address] * Prepare Leukocyte Reduced RBC: 2 Units (05/23/2024 2:04 PM EDT) Product Code [id number] [facility] BLOO D BANK Dispense Status Transfused BLOOD BANK Blood Expiration Date [id number] BLOOD BANK Unit Number [id number] CH B LOOD BANK Product Blood Type 7300 BLOOD BANK Blood Type B+ CH BLOOD BANK Crossmatch Compatible CH BLOOD BANK Product Code [id number] CH BLOO D BANK Dispense Status Returned BLOOD BANK Blood Expiration Date [id number] BLOOD BANK Unit Number [id number] CH B LOOD BANK Product Blood Type 7300 BLOOD BANK Blood Type B+ CH BLOOD BANK Crossmatch Compatible BLOOD BANK Other Mayda M Davy LUMBER STACKER OPERATOR BLOOD BANK PRODUCT ORDERAB LES Final Result Performing Organization Address [facility] Co de Phone Number BLOOD BANK [address] [place] [address], * (ABNORMAL) Renal Function Panel, Plasma (05/23/2024 1:00 PM EDT) Glucose, Plasma 136(H) 74 - 99 mg/dL 05/23/2024 2:16 PM EDT [facility] BUN, Plasma 13 7 - 21 mg/dL 05/23/2024 2:16 PM EDT [facility] Creatinine, Plasma 0.68 0.60 - 1.10 mg/dL 05/23/2024 2:16 PM EDT [facility] BUN/Creatinine Ratio 19 05/23/2024 2:16 PM EDT [facility] Sodium, Plasma 137 136 - 145 mmol/L 05/23/2024 2:16 PM EDT [facility] Potassium, Plasma 4.2 3.6 - 4.9 mmol/L 05/23/2024 2:16 PM EDT [facility] Chloride, Plasma 104 97 - 107 mmol/L 05/23/2024 2:16 PM EDT [facility] CO2, Plasma 25 22 - 29 mmol/L 05/23/2024 2:16 PM EDT [facility] Anion Gap 8 6 - 16 mmol/L 05/23/2024 2:16 PM EDT [facility] Total Calcium, Plasma 7.7(L) 8.9 - 10.2 mg/dL 05/23/2024 2:16 PM EDT [facility] Phosphorus, Plasma 4.1 2.5 - 4.5 mg/dL 05/23/2024 2:16 PM EDT [facility] Albumin, Plasma 2.1(L) 3.5 - 5.2 g/dL 05/23/2024 2:16 PM EDT [facility] eGFRcr 103.6 mL/min/1.7 3m*2 05/23/2024 2:16 PM EDT [facility] Comment:Reported eGFRcr in m L/min/1.73m2 is based the CKD-EPI 2020 equation that does not use a race coefficient. Blood Venous blood specimen / Unknown Venipuncture / Unknown 05/23/2024 1:00 PM EDT 05/23/2024 1:04 PM EDT us Reyna Obregon APRN LAB BLOOD ORDERABLES Namrata clarita Result [facility] [address] [place] [address] * Magnesium (05/23/2024 1:00 PM EDT) Pathologist [facility] Magnesium, Plasma 2.1 1.9 - 2.4 mg/dL 05/23/2024 2:16 PM EDT [facility] Blood Venous blood specimen / Unknown Venipuncture / Unknown 05/23/2024 1:00 PM EDT 05/23/2024 1:04 PM EDT us Reyna Obregon BATTERY PARTS ASSEMBLER LAB BLOOD ORDERABLES Namrata l Result Performing Organization Address [facility]/ZIP Co de Phone Number [facility] [address] [place] [address] * Protime-INR (05/23/2024 12:41 PM EDT) Prothrombin Time 13.6 12.0 - 14.3 sec LAB COAGULATION METHOD 05/23/2024 1:34 PM EDT [facility] INR 1.0 0.9 - 1.1 LAB COAGULATION METHOD 05/23/2024 1:34 PM EDT [facility] Blood Venous blood specimen / Unknown Venipuncture / Unknown 05/23/2024 12:41 PM EDT 05/23/2024 1:04 PM EDT Narrative [facility] - 05/23/2024 1:34 PM EDT OPTIMAL INR RANGES FOR PATIENT ON ORAL ANTICOAGULANT THERAPY Prevention of venous thromboembolism INR 2.0 to 3.0 In patients with heart disease: Atrial fibrillation INR 2.0 to 3.0 Valvular heart disease INR 2.0 to 3.0 Tissue heart valves INR 2.0 to 3.0 Mechanical prosthetic valves INR 2.5 to 3.5 Prevention of recurrent [place] INR 2.5 to 3.5 us Maite Austin MD LAB BLOOD ORDERABLES Final Resu lt Performing Organization Address City/[facility]/ZIP Co de Phone Number [facility] [address] [place] [address] * (ABNORMAL) Ionized calcium, whole blood (05/23/2024 11:40 AM EDT) Ionized Calcium, Whole Blood 4.3(L) 4.6 - 5.1 mg/dL LAB HEMATOLOGY METHOD 05/23/2024 11:48 AM EDT [facility] Blood Venous blood specimen / Unknown Venipuncture / Unknown 05/23/2024 11:40 AM EDT 05/23/2024 11:47 AM EDT us Reyna Obregon APRN LAB BLOOD ORDERABLES Namrata l Result Performing Organization Address [facility] Co de Phone Number [facility] [address] [place] [address] * Blood Culture (Aerobic/Anaerobet Set) (05/23/2024 10:20 AM EDT) Culture No growth at day 5 ELI 05/28/2024 11:01 AM EDT [facility] Blood Venous blood specimen / Unknown Venipuncture / Unknown 05/23/2024 10:20 AM EDT 05/23/2024 10:28 AM EDT us Maite Austin MD LAB MICROBIOLOGY - GENERAL ORDE RABLES Final Result Performing Organization Address [facility] Co de Phone Number [facility] [address] [place] [address] * (ABNORMAL) Hemoglobin and hematocrit, blood (05/23/2024 6:20 AM EDT) HGB 9.0(L) 11.2 - 15.7 g/dL LAB HEMATOLOGY METHOD 05/23/2024 6:38 AM EDT [facility] HCT 28.7(L) 34.0 - 45.0 % LAB HEMATOLOGY METHOD 05/23/2024 6:38 AM EDT [facility] Blood Venous blood specimen / Unknown Venipuncture / Unknown 05/23/2024 6:20 AM EDT 05/23/2024 6:31 AM EDT us Maite Austin MD LAB BLOOD ORDERABLES Final Resu lt Performing Organization Address [facility]/ZIP Co de Phone Number [facility] [address] [place] [address] * (ABNORMAL) Hemoglobin and Hematocrit, Blood (05/23/2024 5:40 AM EDT) HGB 6.7(L) 11.2 - 15.7 g/dL LAB HEMATOLOGY METHOD 05/23/2024 6:02 AM EDT [facility] HCT 21.8(L) 34.0 - 45.0 % LAB HEMATOLOGY METHOD 05/23/2024 6:02 AM EDT [facility] Blood Venous blood specimen / Unknown Venipuncture / Unknown 05/23/2024 5:40 AM EDT 05/23/2024 5:52 AM EDT us Maite Austin MD LAB BLOOD ORDERABLES Final Resu lt [facility] [address] [place] [address] * (ABNORMAL) Renal Function Panel, Plasma (05/23/2024 5:40 AM EDT) Glucose, Plasma 117(H) 74 - 99 mg/dL 05/23/2024 6:22 AM EDT [facility] BUN, Plasma 12 7 - 21 mg/dL 05/23/2024 6:22 AM EDT [facility] Creatinine, Plasma 0.69 0.60 - 1.10 mg/dL 05/23/2024 6:22 AM EDT [facility] BUN/Creatinine Ratio 17 05/23/2024 6:22 AM EDT [facility] Sodium, Plasma 136 136 - 145 mmol/L 05/23/2024 6:22 AM EDT [facility] Potassium, Plasma 4.2 3.6 - 4.9 mmol/L 05/23/2024 6:22 AM EDT [facility] Chloride, Plasma 104 97 - 107 mmol/L 05/23/2024 6:22 AM EDT [facility] CO2, Plasma 24 22 - 29 mmol/L 05/23/2024 6:22 AM EDT [facility] Anion Gap 8 6 - 16 mmol/L 05/23/2024 6:22 AM EDT [facility] Total Calcium, Plasma 7.7(L) 8.9 - 10.2 mg/dL 05/23/2024 6:22 AM EDT [facility] Phosphorus, Plasma 3.9 2.5 - 4.5 mg/dL 05/23/2024 6:22 AM EDT [facility] Albumin, Plasma 1.8(L) 3.5 - 5.2 g/dL 05/23/2024 6:22 AM EDT [facility] eGFRcr 103.3 mL/min/1.7 3m*2 05/23/2024 6:22 AM EDT [facility] Comment:Reported eGFRcr in m L/min/1.73m2 is based the CKD-EPI 2020 equation that does not use a race coefficient. Blood Venous blood specimen / Unknown Venipuncture / Unknown 05/23/2024 5:40 AM EDT 05/23/2024 5:52 AM EDT Reyna Obregon BATTERY PARTS ASSEMBLER LAB BLOOD ORDERABLES Namrata l Result Performing Organization Address City/[facility] Co de Phone Number [facility] [address] [place] [address] * Magnesium (05/23/2024 5:40 AM EDT) Magnesium, Plasma 2.0 1.9 - 2.4 mg/dL 05/23/2024 6:22 AM EDT [facility] Blood Venous blood specimen / Unknown Venipuncture / Unknown 05/23/2024 5:40 AM EDT 05/23/2024 5:52 AM EDT Reyna Obregon BATTERY PARTS ASSEMBLER LAB BLOOD ORDERABLES Namrata l Result Performing Organization Address City/[facility]/ZIP Co de Phone Number [facility] [address] [place] [address] * (ABNORMAL) Ionized calcium, whole blood (05/23/2024 5:40 AM EDT) Ionized Calcium, Whole Blood 4.3(L) 4.6 - 5.1 mg/dL LAB HEMATOLOGY METHOD 05/23/2024 5:55 AM EDT [facility] Blood Venous blood specimen / Unknown Venipuncture / Unknown 05/23/2024 5:40 AM EDT 05/23/2024 5:52 AM EDT us Reyna Obregon BATTERY PARTS ASSEMBLER LAB BLOOD ORDERABLES Namrata l Result [facility] [address] [place] [address] * XR Chest 1 View (05/23/2024 2:32 [...] or aggressive osseous findings. Procedure Note Cass Stoll DO - 05/23/2024 CLINICAL INDICATION: Bowel obstruction [...] DO on 05/23/2024 9:53 AM Reyna Obregon BATTERY PARTS ASSEMBLER IMG CT PROCEDURES Final R esult * (ABNORMAL) Morphology (05/23/2024 1:15 AM EDT) RBC Fragments/Schist ocytes Slight(A) (none) LAB HEMATOLOGY METHOD 05/23/2024 2:53 AM EDT [facility] Polychromasia Moderate LAB HEMATOLOGY METHOD 05/23/2024 2:53 AM EDT [facility] RBC Morphology Slide Reviewed LAB HEMATOLOGY METHOD 05/23/2024 2:53 AM EDT [facility] Platelet Estimate Platelet smear estimate consistent with automated count LAB HEMATOLOGY METHOD 05/23/2024 2:53 AM EDT [facility] Clumped Platelets Present LAB HEMATOLOGY METHOD 05/23/2024 2:53 AM EDT [facility] Blood Venous blood specimen / Unknown Venipuncture / Unknown 05/23/2024 1:15 AM EDT 05/23/2024 1:23 AM EDT us Reyna Andradeari [employer]S ASSEMBLER LAB BLOOD ORDERABLES Namrata l Result [facility] [address] [place] [address] * (ABNORMAL) Manual Differential (05/23/2024 1:15 AM EDT) Blasts % 0 % LAB HEMATOLOGY METHOD 05/23/2024 2:53 AM EDT [facility] Promyelocytes % 0 % LAB HEMATOLOGY METHOD 05/23/2024 2:53 AM EDT [facility] Myelocytes % 4 % LAB HEMATOLOGY METHOD 05/23/2024 2:53 AM EDT [facility] Metamyelocytes % 3 % LAB HEMATOLOGY METHOD 05/23/2024 2:53 AM EDT [facility] Neutrophils % 56 % LAB HEMATOLOGY METHOD 05/23/2024 2:53 AM EDT [facility] Lymphocytes % 26 % LAB HEMATOLOGY METHOD 05/23/2024 2:53 AM EDT [facility] Reactive Lymphocytes % 0 % LAB HEMATOLOGY METHOD 05/23/2024 2:53 AM EDT [facility] Monocytes % 7 % LAB HEMATOLOGY METHOD 05/23/2024 2:53 AM EDT [facility] Eosinophils % 3 % LAB HEMATOLOGY METHOD 05/23/2024 2:53 AM EDT [facility] Basophils % 1 % LAB HEMATOLOGY METHOD 05/23/2024 2:53 AM EDT [facility] Blasts Absolute 0.00 10*3/UL LAB HEMATOLOGY METHOD 05/23/2024 2:53 AM EDT [facility] Promyelocytes Absolute 0.00 10*3/uL LAB HEMATOLOGY METHOD 05/23/2024 2:53 AM EDT [facility] Myelocytes Absolute 0.77 10*3/uL LAB HEMATOLOGY METHOD 05/23/2024 2:53 AM EDT [facility] Metamyelocytes Absolute 0.57 10*3/uL LAB HEMATOLOGY METHOD 05/23/2024 2:53 AM EDT [facility] Neutrophils Absolute 10.72(H) 1.60 - 6.10 10*3/uL LAB HEMATOLOGY METHOD 05/23/2024 2:53 AM EDT [facility] Lymphocytes Absolute 4.98(H) 1.20 - 3.90 10*3/uL LAB HEMATOLOGY METHOD 05/23/2024 2:53 AM EDT [facility] Reactive Lymphocytes Absolute 0.00 10*3/uL LAB HEMATOLOGY METHOD 05/23/2024 2:53 AM EDT [facility] Monocytes Absolute 1.34(H) 0.30 - 0.90 10*3/uL LAB HEMATOLOGY METHOD 05/23/2024 2:53 AM EDT [facility] Eosinophils Absolute 0.57(H) 0.00 - 0.50 10*3/uL LAB HEMATOLOGY METHOD 05/23/2024 2:53 AM EDT [facility] Basophils Absolute 0.19(H) 0.00 - 0.10 10*3/uL LAB HEMATOLOGY METHOD 05/23/2024 2:53 AM EDT [facility] Blood Venous blood specimen / Unknown Venipuncture / Unknown 05/23/2024 1:15 AM EDT 05/23/2024 1:23 AM EDT Reyna Obregon BAT[employer]Y [employer]S ASSEMBLER LAB BLOOD ORDERABLES Namrata otto Result [facility] [address] [place] [address] * (ABNORMAL) Renal Function Panel, Plasma (05/23/2024 1:15 AM EDT) Glucose, Plasma 110(H) 74 - 99 mg/dL 05/23/2024 1:51 AM EDT [facility] BUN, Plasma 13 7 - 21 mg/dL 05/23/2024 1:51 AM EDT [facility] Creatinine, Plasma 0.67 0.60 - 1.10 mg/dL 05/23/2024 1:51 AM EDT [facility] BUN/Creatinine Ratio 19 05/23/2024 1:51 AM EDT [facility] Sodium, Plasma 136 136 - 145 mmol/L 05/23/2024 1:51 AM EDT [facility] Potassium, Plasma 4.0 3.6 - 4.9 mmol/L 05/23/2024 1:51 AM EDT [facility] Chloride, Plasma 103 97 - 107 mmol/L 05/23/2024 1:51 AM EDT [facility] CO2, Plasma 25 22 - 29 mmol/L 05/23/2024 1:51 AM EDT [facility] Anion Gap 8 6 - 16 mmol/L 05/23/2024 1:51 AM EDT [facility] Total Calcium, Plasma 7.9(L) 8.9 - 10.2 mg/dL 05/23/2024 1:51 AM EDT [facility] Phosphorus, Plasma 3.4 2.5 - 4.5 mg/dL 05/23/2024 1:51 AM EDT [facility] Albumin, Plasma 2.1(L) 3.5 - 5.2 g/dL 05/23/2024 1:51 AM EDT [facility] eGFRcr 104.0 mL/min/1.7 3m*2 05/23/2024 1:51 AM EDT [facility] Comment:Reported eGFRcr in m L/min/1.73m2 is based the CKD-EPI 2020 equation that does not use a race coefficient. Blood Venous blood specimen / Unknown Venipuncture / Unknown 05/23/2024 1:15 AM EDT 05/23/2024 1:24 AM EDT Reyna A Sabas BAT[employer]S ASSEMBLER LAB BLOOD ORDERABLES Namrata l Result Performing Organization Address [facility]/ZIP Co de Phone Number [facility] [address] [place] [address] * Magnesium (05/23/2024 1:15 AM EDT) Magnesium, Plasma 1.9 1.9 - 2.4 mg/dL 05/23/2024 1:51 AM EDT [facility] Blood Venous blood specimen / Unknown Venipuncture / Unknown 05/23/2024 1:15 AM EDT 05/23/2024 1:24 AM EDT Reyna A Sabas BAT[employer] ASSEMBLER LAB BLOOD ORDERABLES Namrata l Result Performing Organization Address City/[facility]/ZIP Co de Phone Number [facility] [address] [place] [address] * (ABNORMAL) Ionized calcium, whole blood (05/23/2024 1:15 AM EDT) Ionized Calcium, Whole Blood 4.2(L) 4.6 - 5.1 mg/dL LAB HEMATOLOGY METHOD 05/23/2024 1:43 AM EDT [facility] Blood Venous blood specimen / Unknown Venipuncture / Unknown 05/23/2024 1:15 AM EDT 05/23/2024 1:38 AM EDT us Reyna Obregon [employer] ASSEMBLER LAB BLOOD ORDERABLES Namrata l Result [facility] [address] [place] [address] * (ABNORMAL) Comprehensive metabolic panel (05/23/2024 1:15 AM EDT) Glucose, Plasma 110(H) 74 - 99 mg/dL 05/23/2024 1:51 AM EDT [facility] BUN, Plasma 13 7 - 21 mg/dL 05/23/2024 1:51 AM EDT [facility] Creatinine, Plasma 0.67 0.60 - 1.10 mg/dL 05/23/2024 1:51 AM EDT [facility] BUN/Creatinine Ratio 19 05/23/2024 1:51 AM EDT [facility] Sodium, Plasma 136 136 - 145 mmol/L 05/23/2024 1:51 AM EDT [facility] Potassium, Plasma 4.0 3.6 - 4.9 mmol/L 05/23/2024 1:51 AM EDT [facility] Chloride, Plasma 103 97 - 107 mmol/L 05/23/2024 1:51 AM EDT [facility] CO2, Plasma 25 22 - 29 mmol/L 05/23/2024 1:51 AM EDT [facility] Anion Gap 8 6 - 16 mmol/L 05/23/2024 1:51 AM EDT [facility] Total Calcium, Plasma 7.9(L) 8.9 - 10.2 mg/dL 05/23/2024 1:51 AM EDT [facility] Total Protein 6.4 6.3 - 7.9 g/dL 05/23/2024 1:51 AM EDT [facility] Albumin, Plasma 2.1(L) 3.5 - 5.2 g/dL 05/23/2024 1:51 AM EDT [facility] AST, Plasma 29 10 - 35 U/L 05/23/2024 1:51 AM EDT [facility] ALT, Plasma 14 10 - 35 U/L 05/23/2024 1:51 AM EDT [facility] Alkaline Phosphatase, Plasma 121(H) 35 - 104 U/L 05/23/2024 1:51 AM EDT [facility] Total Bilirubin, Plasma 0.6 0.2 - 1.1 mg/dL 05/23/2024 1:51 AM EDT [facility] eGFRcr 104.0 mL/min/1.7 3m*2 05/23/2024 1:51 AM EDT [facility] Comment:Reported eGFRcr in m L/min/1.73m2 is based the CKD-EPI 2020 equation that does not use a race coefficient. Blood Venous blood specimen / Unknown Venipuncture / Unknown 05/23/2024 1:15 AM EDT 05/23/2024 1:24 AM EDT us Reyna Obregon [employer] LAB BLOOD ORDERABLES Namrata l Result [facility] [address] [place] [address] * (ABNORMAL) CBC and Differential (05/23/2024 1:15 AM EDT) WBC Count 19.15(H) 3.70 - 10.30 10*3/uL LAB HEMATOLOGY METHOD 05/23/2024 2:54 AM EDT [facility] RBC Count 3.31(L) 3.90 - 5.20 10*6/uL LAB HEMATOLOGY METHOD 05/23/2024 2:54 AM EDT [facility] HGB 9.5(L) 11.2 - 15.7 g/dL LAB HEMATOLOGY METHOD 05/23/2024 2:54 AM EDT [facility] HCT 30.4(L) 34.0 - 45.0 % LAB HEMATOLOGY METHOD 05/23/2024 2:54 AM EDT [facility] Platelet Count 558(H) 155 - 369 10*3/uL LAB HEMATOLOGY METHOD 05/23/2024 2:54 AM EDT [facility] MCV 92 79 - 98 fL LAB HEMATOLOGY METHOD 05/23/2024 2:54 AM EDT [facility] MCH 28.7 26.0 - 32.0 pg LAB HEMATOLOGY METHOD 05/23/2024 2:54 AM EDT [facility] MCHC 31.3 30.7 - 35.5 g/dL LAB HEMATOLOGY METHOD 05/23/2024 2:54 AM EDT [facility] RDW 15.3(H) 11.5 - 14.5 % LAB HEMATOLOGY METHOD 05/23/2024 2:54 AM EDT [facility] MPV 9.8 8.8 - 12.5 fL LAB HEMATOLOGY METHOD 05/23/2024 2:54 AM EDT [facility] nRBC 0.6(H) <=0.0 per 100 WBCs LAB HEMATOLOGY METHOD 05/23/2024 2:54 AM EDT [facility] Differential Type Manual LAB HEMATOLOGY METHOD 05/23/2024 2:54 AM EDT [facility] Blood Venous blood specimen / Unknown Venipuncture / Unknown 05/23/2024 1:15 AM EDT 05/23/2024 1:23 AM EDT Narrative [facility] - 05/23/2024 2:54 AM EDT Therapeutic [...] APRN LAB BLOOD ORDERABLES Namrata otto Result [facility] [address] [place] [address] * ECG Adult (05/23/2024 12:57 AM EDT) EKG DIAGNOSIS CLASS Abnormal MUSE ECG Ventricular Rate 108 BPM MUSE ECG Atrial Rate 108 BPM MUSE ECG TN Interval 118 ms MUSE ECG QRSD Interval 96 ms MUSE ECG QT Interval 380 ms MUSE ECG QTC Interval 509 ms MUSE ECG P [place] 83 degrees MUSE ECG R [place] 81 degrees MUSE ECG T Wave [place] 78 degrees MUSE ECG Diagnosis Sinus tachycardia MUSE ECG Diagnosis Low voltage chest leads MUSE ECG Diagnosis Incomplete right bundle branch block MUSE ECG Diagnosis ST & T wave abnormality, consider anterior ischemia MUSE ECG Diagnosis Abnormal ECG MUSE ECG Diagnosis MUSE ECG Diagnosis Confirmed by Graham Singleton ([id number]) on 05/23/2024 7:56:02 AM MUSE ECG 05/23/2024 12:5 7 AM EDT 05/23/2024 7:56 AM EDT us Maite Austin MD ECG ORDERABLES Final Result Performing Organization Address [facility] Co de Phone Number MUSE ECG * (ABNORMAL) Renal Function Panel, Plasma (05/22/2024 6:50 PM EDT) Glucose, Plasma 126(H) 74 - 99 mg/dL 05/22/2024 7:40 PM EDT [facility] BUN, Plasma 13 7 - 21 mg/dL 05/22/2024 7:40 PM EDT [facility] Creatinine, Plasma 0.66 0.60 - 1.10 mg/dL 05/22/2024 7:40 PM EDT [facility] BUN/Creatinine Ratio 20 05/22/2024 7:40 PM EDT [facility] Sodium, Plasma 136 136 - 145 mmol/L 05/22/2024 7:40 PM EDT [facility] Potassium, Plasma 3.7 3.6 - 4.9 mmol/L 05/22/2024 7:40 PM EDT [facility] Chloride, Plasma 102 97 - 107 mmol/L 05/22/2024 7:40 PM EDT [facility] CO2, Plasma 26 22 - 29 mmol/L 05/22/2024 7:40 PM EDT [facility] Anion Gap 8 6 - 16 mmol/L 05/22/2024 7:40 PM EDT [facility] Total Calcium, Plasma 7.7(L) 8.9 - 10.2 mg/dL 05/22/2024 7:40 PM EDT [facility] Phosphorus, Plasma 3.6 2.5 - 4.5 mg/dL 05/22/2024 7:40 PM EDT [facility] Albumin, Plasma 2.0(L) 3.5 - 5.2 g/dL 05/22/2024 7:40 PM EDT [facility] eGFRcr 104.4 mL/min/1.7 3m*2 05/22/2024 7:40 PM EDT [facility] Comment:Reported eGFRcr in m L/min/1.73m2 is based the CKD-EPI 2020 equation that does not use a race coefficient. Blood Venous blood specimen / Unknown Venipuncture / Unknown 05/22/2024 6:50 PM EDT 05/22/2024 7:08 PM EDT Reyna Obregon [employer] [facility] BLOOD ORDERABLES Namrata l Result [facility] [address] [place] [address] * Magnesium (05/22/2024 6:50 PM EDT) Magnesium, Plasma 2.0 1.9 - 2.4 mg/dL 05/22/2024 7:40 PM EDT [facility] Blood Venous blood specimen / Unknown Venipuncture / Unknown 05/22/2024 6:50 PM EDT 05/22/2024 7:08 PM EDT Reyna A Sabas [employer] [facility] BLOOD ORDERABLES Namrata l Result [facility] [address] [place] [address] * (ABNORMAL) Ionized calcium, whole blood (05/22/2024 6:50 PM EDT) Ionized Calcium, Whole Blood 4.2(L) 4.6 - 5.1 mg/dL LAB HEMATOLOGY METHOD 05/22/2024 7:10 PM EDT [facility] Blood Venous blood specimen / Unknown Venipuncture / Unknown 05/22/2024 6:50 PM EDT 05/22/2024 7:06 PM EDT us Reyna Obregon [employer] LAB BLOOD ORDERABLES Namrata l Result Performing Organization Address [facility]/ZIP Co de Phone Number [facility] [address] [place] [address] * CT Abdomen Pelvis wo IV Contrast [...] on 05/22/2024 6:08 PM Reyna A Sabas [employer] IMG CT PROCEDURES Final R esult * (ABNORMAL) Renal Function Panel, Plasma (05/22/2024 11:32 AM EDT) Glucose, Plasma 143(H) 74 - 99 mg/dL 05/22/2024 12:15 PM EDT [facility] BUN, Plasma 13 7 - 21 mg/dL 05/22/2024 12:15 PM EDT [facility] Creatinine, Plasma 0.62 0.60 - 1.10 mg/dL 05/22/2024 12:15 PM EDT [facility] BUN/Creatinine Ratio 21 05/22/2024 12:15 PM EDT [facility] Sodium, Plasma 138 136 - 145 mmol/L 05/22/2024 12:15 PM EDT [facility] Potassium, Plasma 3.9 3.6 - 4.9 mmol/L 05/22/2024 12:15 PM EDT [facility] Chloride, Plasma 104 97 - 107 mmol/L 05/22/2024 12:15 PM EDT [facility] CO2, Plasma 25 22 - 29 mmol/L 05/22/2024 12:15 PM EDT [facility] Anion Gap 9 6 - 16 mmol/L 05/22/2024 12:15 PM EDT [facility] Total Calcium, Plasma 7.9(L) 8.9 - 10.2 mg/dL 05/22/2024 12:15 PM EDT [facility] Phosphorus, Plasma 3.5 2.5 - 4.5 mg/dL 05/22/2024 12:15 PM EDT [facility] Albumin, Plasma 2.1(L) 3.5 - 5.2 g/dL 05/22/2024 12:15 PM EDT [facility] eGFRcr 106.0 mL/min/1.7 3m*2 05/22/2024 12:15 PM EDT [facility] Comment:Reported eGFRcr in m L/min/1.73m2 is based the CKD-EPI 2020 equation that does not use a race coefficient. Blood Venous blood specimen / Unknown Venipuncture / Unknown 05/22/2024 11:32 AM EDT 05/22/2024 11:43 AM EDT us Maite Austin MD LAB BLOOD ORDERABLES Final Resu lt Performing Organization Address City/[facility]/ZIP Co de Phone Number [facility] [address] [place] [address] * Magnesium (05/22/2024 11:32 AM EDT) Magnesium, Plasma 2.0 1.9 - 2.4 mg/dL 05/22/2024 12:15 PM EDT [facility] Blood Venous blood specimen / Unknown Venipuncture / Unknown 05/22/2024 11:32 AM EDT 05/22/2024 11:43 AM EDT us Maite Austin MD LAB BLOOD ORDERABLES Final Resu lt Performing Organization Address [facility] Co de Phone Number [facility] [address] [place] [address] * (ABNORMAL) Ionized calcium, whole blood (05/22/2024 11:32 AM EDT) Ionized Calcium, Whole Blood 4.4(L) 4.6 - 5.1 mg/dL LAB HEMATOLOGY METHOD 05/22/2024 11:45 AM EDT [facility] Blood Venous blood specimen / Unknown Venipuncture / Unknown 05/22/2024 11:32 AM EDT 05/22/2024 11:44 AM EDT Maite Austin MD LAB BLOOD ORDERABLES Final Resu lt Performing Organization Address City/[facility]/ZIP Co de Phone Number [facility] [address] [place] [address] * Type and Screen (05/22/2024 6:18 AM [...] TEST ORDERABLES Final Result BLOOD BANK [address] [place] [address], * (ABNORMAL) Morphology (05/22/2024 6:13 AM EDT) RBC Fragments/Schist ocytes Slight(A) (none) LAB HEMATOLOGY METHOD 05/22/2024 8:34 AM EDT [facility] Polychromasia Moderate LAB HEMATOLOGY METHOD 05/22/2024 8:34 AM EDT [facility] Echinocytes Present LAB HEMATOLOGY METHOD 05/22/2024 8:34 AM EDT [facility] RBC Morphology Slide Reviewed LAB HEMATOLOGY METHOD 05/22/2024 8:34 AM EDT [facility] Platelet Estimate Platelet smear estimate consistent with automated count LAB HEMATOLOGY METHOD 05/22/2024 8:34 AM EDT [facility] Blood Venous blood specimen / Unknown Venipuncture / Unknown 05/22/2024 6:13 AM EDT 05/22/2024 6:20 AM EDT Maite Austin MD LAB BLOOD ORDERABLES Final Resu lt [facility] [address] [place] [address] * (ABNORMAL) Manual Differential (05/22/2024 6:13 AM EDT) Blasts % 0 % LAB HEMATOLOGY METHOD 05/22/2024 8:34 AM EDT [facility] Promyelocytes % 0 % LAB HEMATOLOGY METHOD 05/22/2024 8:34 AM EDT [facility] Myelocytes % 2 % LAB HEMATOLOGY METHOD 05/22/2024 8:34 AM EDT [facility] Metamyelocytes % 3 % LAB HEMATOLOGY METHOD 05/22/2024 8:34 AM EDT [facility] Neutrophils % 69 % LAB HEMATOLOGY METHOD 05/22/2024 8:34 AM EDT [facility] Lymphocytes % 13 % LAB HEMATOLOGY METHOD 05/22/2024 8:34 AM EDT [facility] Reactive Lymphocytes % 1 % LAB HEMATOLOGY METHOD 05/22/2024 8:34 AM EDT [facility] Monocytes % 9 % LAB HEMATOLOGY METHOD 05/22/2024 8:34 AM EDT [facility] Eosinophils % 2 % LAB HEMATOLOGY METHOD 05/22/2024 8:34 AM EDT [facility] Basophils % 1 % LAB HEMATOLOGY METHOD 05/22/2024 8:34 AM EDT [facility] Blasts Absolute 0.00 10*3/UL LAB HEMATOLOGY METHOD 05/22/2024 8:34 AM EDT [facility] Promyelocytes Absolute 0.00 10*3/uL LAB HEMATOLOGY METHOD 05/22/2024 8:34 AM EDT [facility] Myelocytes Absolute 0.23 10*3/uL LAB HEMATOLOGY METHOD 05/22/2024 8:34 AM EDT [facility] Metamyelocytes Absolute 0.35 10*3/uL LAB HEMATOLOGY METHOD 05/22/2024 8:34 AM EDT [facility] Neutrophils Absolute 7.98(H) 1.60 - 6.10 10*3/uL LAB HEMATOLOGY METHOD 05/22/2024 8:34 AM EDT [facility] Lymphocytes Absolute 1.50 1.20 - 3.90 10*3/uL LAB HEMATOLOGY METHOD 05/22/2024 8:34 AM EDT [facility] Reactive Lymphocytes Absolute 0.12 10*3/uL LAB HEMATOLOGY METHOD 05/22/2024 8:34 AM EDT [facility] Monocytes Absolute 1.04(H) 0.30 - 0.90 10*3/uL LAB HEMATOLOGY METHOD 05/22/2024 8:34 AM EDT [facility] Eosinophils Absolute 0.23 0.00 - 0.50 10*3/uL LAB HEMATOLOGY METHOD 05/22/2024 8:34 AM EDT [facility] Basophils Absolute 0.12(H) 0.00 - 0.10 10*3/uL LAB HEMATOLOGY METHOD 05/22/2024 8:34 AM EDT [facility] Blood Venous blood specimen / Unknown Venipuncture / Unknown 05/22/2024 6:13 AM EDT 05/22/2024 6:20 AM EDT us Maite Austin MD LAB BLOOD ORDERABLES Final Resu lt [facility] [address] [place] [address] * (ABNORMAL) Comprehensive metabolic panel (05/22/2024 6:13 AM EDT) Glucose, Plasma 115(H) 74 - 99 mg/dL 05/22/2024 7:01 AM EDT [facility] BUN, Plasma 12 7 - 21 mg/dL 05/22/2024 7:01 AM EDT [facility] Creatinine, Plasma 0.61 0.60 - 1.10 mg/dL 05/22/2024 7:01 AM EDT [facility] BUN/Creatinine Ratio 20 05/22/2024 7:01 AM EDT [facility] Sodium, Plasma 139 136 - 145 mmol/L 05/22/2024 7:01 AM EDT [facility] Potassium, Plasma 3.6 3.6 - 4.9 mmol/L 05/22/2024 7:01 AM EDT [facility] Chloride, Plasma 107 97 - 107 mmol/L 05/22/2024 7:01 AM EDT [facility] CO2, Plasma 24 22 - 29 mmol/L 05/22/2024 7:01 AM EDT [facility] Anion Gap 8 6 - 16 mmol/L 05/22/2024 7:01 AM EDT [facility] Total Calcium, Plasma 7.0(L) 8.9 - 10.2 mg/dL 05/22/2024 7:01 AM EDT [facility] Total Protein 5.4(L) 6.3 - 7.9 g/dL 05/22/2024 7:01 AM EDT [facility] Albumin, Plasma 1.8(L) 3.5 - 5.2 g/dL 05/22/2024 7:01 AM EDT [facility] AST, Plasma 31 10 - 35 U/L 05/22/2024 7:01 AM EDT [facility] ALT, Plasma 16 10 - 35 U/L 05/22/2024 7:01 AM EDT [facility] Alkaline Phosphatase, Plasma 112(H) 35 - 104 U/L 05/22/2024 7:01 AM EDT [facility] Total Bilirubin, Plasma 0.7 0.2 - 1.1 mg/dL 05/22/2024 7:01 AM EDT [facility] eGFRcr 106.4 mL/min/1.7 3m*2 05/22/2024 7:01 AM EDT [facility] Comment:Reported eGFRcr in m L/min/1.73m2 is based the CKD-EPI 2020 equation that does not use a race coefficient. Blood Venous blood specimen / Unknown Venipuncture / Unknown 05/22/2024 6:13 AM EDT 05/22/2024 6:20 AM EDT us Maite Austin MD LAB BLOOD ORDERABLES Final Resu lt [facility] [address] [place] [address] * (ABNORMAL) CBC and differential (05/22/2024 6:13 AM EDT) WBC Count 11.56(H) 3.70 - 10.30 10*3/uL LAB HEMATOLOGY METHOD 05/22/2024 8:34 AM EDT [facility] RBC Count 3.18(L) 3.90 - 5.20 10*6/uL LAB HEMATOLOGY METHOD 05/22/2024 8:34 AM EDT [facility] HGB 9.2(L) 11.2 - 15.7 g/dL LAB HEMATOLOGY METHOD 05/22/2024 8:34 AM EDT [facility] HCT 29.4(L) 34.0 - 45.0 % LAB HEMATOLOGY METHOD 05/22/2024 8:34 AM EDT [facility] Platelet Count 523(H) 155 - 369 10*3/uL LAB HEMATOLOGY METHOD 05/22/2024 8:34 AM EDT [facility] MCV 93 79 - 98 fL LAB HEMATOLOGY METHOD 05/22/2024 8:34 AM EDT [facility] MCH 28.9 26.0 - 32.0 pg LAB HEMATOLOGY METHOD 05/22/2024 8:34 AM EDT [facility] MCHC 31.3 30.7 - 35.5 g/dL LAB HEMATOLOGY METHOD 05/22/2024 8:34 AM EDT [facility] RDW 15.3(H) 11.5 - 14.5 % LAB HEMATOLOGY METHOD 05/22/2024 8:34 AM EDT [facility] MPV 9.7 8.8 - 12.5 fL LAB HEMATOLOGY METHOD 05/22/2024 8:34 AM EDT [facility] nRBC 0.4(H) <=0.0 per 100 WBCs LAB HEMATOLOGY METHOD 05/22/2024 8:34 AM EDT [facility] Differential Type Manual LAB HEMATOLOGY METHOD 05/22/2024 8:34 AM EDT [facility] Blood Venous blood specimen / Unknown Venipuncture / Unknown 05/22/2024 6:13 AM EDT 05/22/2024 6:20 AM EDT Narrative [facility] - 05/22/2024 8:34 AM EDT Therapeutic [...] MD LAB BLOOD ORDERABLES Final Resu lt [facility] [address] [place] [address] * (ABNORMAL) Ionized calcium, whole blood (05/22/2024 6:13 AM EDT) Ionized Calcium, Whole Blood 4.0(L) 4.6 - 5.1 mg/dL LAB HEMATOLOGY METHOD 05/22/2024 6:24 AM EDT [facility] Blood Venous blood specimen / Unknown Venipuncture / Unknown 05/22/2024 6:13 AM EDT 05/22/2024 6:22 AM EDT us Maite Austin MD LAB BLOOD ORDERABLES Final Resu lt Performing Organization Address City/[facility]/ZIP Co de Phone Number [facility] [address] [place] [address] * (ABNORMAL) Morphology (05/22/2024 5:18 AM EDT) RBC Fragments/Schist ocytes Slight(A) (none) LAB HEMATOLOGY METHOD 05/22/2024 7:05 AM EDT [facility] Polychromasia Slight LAB HEMATOLOGY METHOD 05/22/2024 7:05 AM EDT [facility] Echinocytes Present LAB HEMATOLOGY METHOD 05/22/2024 7:05 AM EDT [facility] RBC Morphology Slide Reviewed LAB HEMATOLOGY METHOD 05/22/2024 7:05 AM EDT [facility] Platelet Estimate Platelet smear estimate consistent with automated count LAB HEMATOLOGY METHOD 05/22/2024 7:05 AM EDT [facility] Blood Venous blood specimen / Unknown Venipuncture / Unknown 05/22/2024 5:18 AM EDT 05/22/2024 5:25 AM EDT us Reyna Obregon APRN LAB BLOOD ORDERABLES Namrata l Result Performing Organization Address City/[facility]/ZIP Co de Phone Number [facility] [address] [place] [address] * (ABNORMAL) Manual Differential (05/22/2024 5:18 AM EDT) Blasts % 0 % LAB HEMATOLOGY METHOD 05/22/2024 7:05 AM EDT [facility] Promyelocytes % 0 % LAB HEMATOLOGY METHOD 05/22/2024 7:05 AM EDT [facility] Myelocytes % 2 % LAB HEMATOLOGY METHOD 05/22/2024 7:05 AM EDT [facility] Metamyelocytes % 4 % LAB HEMATOLOGY METHOD 05/22/2024 7:05 AM EDT [facility] Neutrophils % 64 % LAB HEMATOLOGY METHOD 05/22/2024 7:05 AM EDT [facility] Lymphocytes % 17 % LAB HEMATOLOGY METHOD 05/22/2024 7:05 AM EDT [facility] Reactive Lymphocytes % 2 % LAB HEMATOLOGY METHOD 05/22/2024 7:05 AM EDT [facility] Monocytes % 6 % LAB HEMATOLOGY METHOD 05/22/2024 7:05 AM EDT [facility] Eosinophils % 5 % LAB HEMATOLOGY METHOD 05/22/2024 7:05 AM EDT [facility] Basophils % 0 % LAB HEMATOLOGY METHOD 05/22/2024 7:05 AM EDT [facility] Blasts Absolute 0.00 10*3/UL LAB HEMATOLOGY METHOD 05/22/2024 7:05 AM EDT [facility] Promyelocytes Absolute 0.00 10*3/uL LAB HEMATOLOGY METHOD 05/22/2024 7:05 AM EDT [facility] Myelocytes Absolute 0.20 10*3/uL LAB HEMATOLOGY METHOD 05/22/2024 7:05 AM EDT [facility] Metamyelocytes Absolute 0.40 10*3/uL LAB HEMATOLOGY METHOD 05/22/2024 7:05 AM EDT [facility] Neutrophils Absolute 6.39(H) 1.60 - 6.10 10*3/uL LAB HEMATOLOGY METHOD 05/22/2024 7:05 AM EDT [facility] Lymphocytes Absolute 1.70 1.20 - 3.90 10*3/uL LAB HEMATOLOGY METHOD 05/22/2024 7:05 AM EDT [facility] Reactive Lymphocytes Absolute 0.20 10*3/uL LAB HEMATOLOGY METHOD 05/22/2024 7:05 AM EDT [facility] Monocytes Absolute 0.60 0.30 - 0.90 10*3/uL LAB HEMATOLOGY METHOD 05/22/2024 7:05 AM EDT [facility] Eosinophils Absolute 0.50 0.00 - 0.50 10*3/uL LAB HEMATOLOGY METHOD 05/22/2024 7:05 AM EDT [facility] Basophils Absolute 0.00 0.00 - 0.10 10*3/uL LAB HEMATOLOGY METHOD 05/22/2024 7:05 AM EDT [facility] Blood Venous blood specimen / Unknown Venipuncture / Unknown 05/22/2024 5:18 AM EDT 05/22/2024 5:25 AM EDT us Reyna Obregon APRN LAB BLOOD ORDERABLES Namrata l Result Performing Organization Address City/[facility]/ZIP Co de Phone Number [facility] [address] [place] [address] * (ABNORMAL) Ionized calcium, whole blood (05/22/2024 5:18 AM EDT) Ionized Calcium, Whole Blood 3.4(L) 4.6 - 5.1 mg/dL LAB HEMATOLOGY METHOD 05/22/2024 5:27 AM EDT [facility] Blood Venous blood specimen / Unknown Venipuncture / Unknown 05/22/2024 5:18 AM EDT 05/22/2024 5:26 AM EDT us Maite Austin MD LAB BLOOD ORDERABLES Final Resu lt Performing Organization Address City/[facility]/ZIP Co de Phone Number [facility] [address] [place] [address] * (ABNORMAL) CBC and Differential (05/22/2024 5:18 AM EDT) WBC Count 9.98 3.70 - 10.30 10*3/uL LAB HEMATOLOGY METHOD 05/22/2024 7:05 AM EDT [facility] RBC Count 2.58(L) 3.90 - 5.20 10*6/uL LAB HEMATOLOGY METHOD 05/22/2024 7:05 AM EDT [facility] HGB 7.6(L) 11.2 - 15.7 g/dL LAB HEMATOLOGY METHOD 05/22/2024 7:05 AM EDT [facility] HCT 23.8(L) 34.0 - 45.0 % LAB HEMATOLOGY METHOD 05/22/2024 7:05 AM EDT [facility] Platelet Count 431(H) 155 - 369 10*3/uL LAB HEMATOLOGY METHOD 05/22/2024 7:05 AM EDT [facility] MCV 92 79 - 98 fL LAB HEMATOLOGY METHOD 05/22/2024 7:05 AM EDT [facility] MCH 29.5 26.0 - 32.0 pg LAB HEMATOLOGY METHOD 05/22/2024 7:05 AM EDT [facility] MCHC 31.9 30.7 - 35.5 g/dL LAB HEMATOLOGY METHOD 05/22/2024 7:05 AM EDT [facility] RDW 15.5(H) 11.5 - 14.5 % LAB HEMATOLOGY METHOD 05/22/2024 7:05 AM EDT [facility] MPV 9.4 8.8 - 12.5 fL LAB HEMATOLOGY METHOD 05/22/2024 7:05 AM EDT [facility] nRBC 0.4(H) <=0.0 per 100 WBCs LAB HEMATOLOGY METHOD 05/22/2024 7:05 AM EDT [facility] Differential Type Manual LAB HEMATOLOGY METHOD 05/22/2024 7:05 AM EDT [facility] Blood Venous blood specimen / Unknown Venipuncture / Unknown 05/22/2024 5:18 AM EDT 05/22/2024 5:25 AM EDT Narrative [facility] - 05/22/2024 7:05 AM EDT Therapeutic [...] is no longer being reported. us Reyna Andradeari [employer] LAB BLOOD ORDERABLES Namrata l Result [facility] [address] [place] [address] * XR Chest 1 View (05/22/2024 3:44 [...] Edson Ambrose MD on 05/22/2024 8:56 AM Maite Austin MD IMG XR PROCEDURES Final Result * (ABNORMAL) Renal Function Panel, Plasma (05/22/2024 12:01 AM EDT) Glucose, Plasma 114(H) 74 - 99 mg/dL 05/22/2024 12:41 AM EDT [facility] BUN, Plasma 11 7 - 21 mg/dL 05/22/2024 12:41 AM EDT [facility] Creatinine, Plasma 0.62 0.60 - 1.10 mg/dL 05/22/2024 12:41 AM EDT [facility] BUN/Creatinine Ratio 18 05/22/2024 12:41 AM EDT [facility] Sodium, Plasma 139 136 - 145 mmol/L 05/22/2024 12:41 AM EDT [facility] Potassium, Plasma 4.2 3.6 - 4.9 mmol/L 05/22/2024 12:41 AM EDT [facility] Chloride, Plasma 110(H) 97 - 107 mmol/L 05/22/2024 12:41 AM EDT [facility] CO2, Plasma 22 22 - 29 mmol/L 05/22/2024 12:41 AM EDT [facility] Anion Gap 7 6 - 16 mmol/L 05/22/2024 12:41 AM EDT [facility] Total Calcium, Plasma 7.5(L) 8.9 - 10.2 mg/dL 05/22/2024 12:41 AM EDT [facility] Phosphorus, Plasma 3.1 2.5 - 4.5 mg/dL 05/22/2024 12:41 AM EDT [facility] Albumin, Plasma 1.8(L) 3.5 - 5.2 g/dL 05/22/2024 12:41 AM EDT [facility] eGFRcr 106.0 mL/min/1.7 3m*2 05/22/2024 12:41 AM EDT [facility] Comment:Reported eGFRcr in m L/min/1.73m2 is based the CKD-EPI 2020 equation that does not use a race coefficient. Blood Venous blood specimen / Unknown Venipuncture / Unknown 05/22/2024 12:01 AM EDT 05/22/2024 12:10 AM EDT us Maite Austin MD LAB BLOOD ORDERABLES Final Resu lt Performing Organization Address City/[facility]/ZIP Co de Phone Number [facility] [address] [place] [address] * Magnesium (05/22/2024 12:01 AM EDT) Magnesium, Plasma 1.9 1.9 - 2.4 mg/dL 05/22/2024 12:41 AM EDT [facility] Blood Venous blood specimen / Unknown Venipuncture / Unknown 05/22/2024 12:01 AM EDT 05/22/2024 12:10 AM EDT Maite Austin MD LAB BLOOD ORDERABLES Final Resu lt Performing Organization Address [facility] Co de Phone Number [facility] [address] [place] [address] * (ABNORMAL) Ionized calcium, whole blood (05/22/2024 12:01 AM EDT) [facility] Signature Ionized Calcium, Whole Blood 4.3(L) 4.6 - 5.1 mg/dL LAB HEMATOLOGY METHOD 05/22/2024 12:13 AM EDT [facility] Blood Venous blood specimen / Unknown Venipuncture / Unknown 05/22/2024 12:01 AM EDT 05/22/2024 12:10 AM EDT us Maite Austin MD LAB BLOOD ORDERABLES Final Resu lt Performing Organization Address City/[facility]/ZIP Co de Phone Number [facility] [address] [place] [address] * (ABNORMAL) Renal Function Panel, Plasma (05/21/2024 6:00 PM EDT) Glucose, Plasma 121(H) 74 - 99 mg/dL 05/21/2024 7:17 PM EDT [facility] BUN, Plasma 11 7 - 21 mg/dL 05/21/2024 7:17 PM EDT [facility] Creatinine, Plasma 0.58(L) 0.60 - 1.10 mg/dL 05/21/2024 7:17 PM EDT [facility] BUN/Creatinine Ratio 19 05/21/2024 7:17 PM EDT [facility] Sodium, Plasma 139 136 - 145 mmol/L 05/21/2024 7:17 PM EDT [facility] Potassium, Plasma 4.7 3.6 - 4.9 mmol/L 05/21/2024 7:17 PM EDT [facility] Chloride, Plasma 109(H) 97 - 107 mmol/L 05/21/2024 7:17 PM EDT [facility] CO2, Plasma 23 22 - 29 mmol/L 05/21/2024 7:17 PM EDT [facility] Anion Gap 7 6 - 16 mmol/L 05/21/2024 7:17 PM EDT [facility] Total Calcium, Plasma 7.7(L) 8.9 - 10.2 mg/dL 05/21/2024 7:17 PM EDT [facility] Phosphorus, Plasma 4.1 2.5 - 4.5 mg/dL 05/21/2024 7:17 PM EDT [facility] Albumin, Plasma 1.9(L) 3.5 - 5.2 g/dL 05/21/2024 7:17 PM EDT [facility] eGFRcr 107.7 mL/min/1.7 3m*2 05/21/2024 7:17 PM EDT [facility] Comment:Reported eGFRcr in m L/min/1.73m2 is based the CKD-EPI 2020 equation that does not use a race coefficient. Blood Venous blood specimen / Unknown Venipuncture / Unknown 05/21/2024 6:00 PM EDT 05/21/2024 6:24 PM EDT us Reyna Obregon [employer] [facility] BLOOD ORDERABLES Namrata otto Result [facility] [address] [place] [address] * Magnesium (05/21/2024 6:00 PM EDT) Magnesium, Plasma 2.1 1.9 - 2.4 mg/dL 05/21/2024 7:17 PM EDT [facility] Blood Venous blood specimen / Unknown Venipuncture / Unknown 05/21/2024 6:00 PM EDT 05/21/2024 6:24 PM EDT Reyna A Sabas [employer] LAB BLOOD ORDERABLES Namrata l Result Performing Organization Address City/[facility]/ZIP Co de Phone Number [facility] [address] [place] [address] * (ABNORMAL) Ionized calcium, whole blood (05/21/2024 6:00 PM EDT) Ionized Calcium, Whole Blood 4.5(L) 4.6 - 5.1 mg/dL LAB HEMATOLOGY METHOD 05/21/2024 6:09 PM EDT [facility] Blood Venous blood specimen / Unknown Venipuncture / Unknown 05/21/2024 6:00 PM EDT 05/21/2024 6:08 PM EDT Reynaher Lois Obregon [employer] LAB BLOOD ORDERABLES Namrata l Result Performing Organization Address City/[facility]/ZIP Co de Phone Number [facility] [address] [place] [address] * (ABNORMAL) Renal Function Panel, Plasma (05/21/2024 12:09 PM EDT) Glucose, Plasma 139(H) 74 - 99 mg/dL 05/21/2024 1:09 PM EDT [facility] BUN, Plasma 13 7 - 21 mg/dL 05/21/2024 1:09 PM EDT [facility] Creatinine, Plasma 0.62 0.60 - 1.10 mg/dL 05/21/2024 1:09 PM EDT [facility] BUN/Creatinine Ratio 21 05/21/2024 1:09 PM EDT [facility] Sodium, Plasma 139 136 - 145 mmol/L 05/21/2024 1:09 PM EDT [facility] Potassium, Plasma 4.3 3.6 - 4.9 mmol/L 05/21/2024 1:09 PM EDT [facility] Chloride, Plasma 111(H) 97 - 107 mmol/L 05/21/2024 1:09 PM EDT [facility] CO2, Plasma 21(L) 22 - 29 mmol/L 05/21/2024 1:09 PM EDT [facility] Anion Gap 7 6 - 16 mmol/L 05/21/2024 1:09 PM EDT [facility] Total Calcium, Plasma 7.5(L) 8.9 - 10.2 mg/dL 05/21/2024 1:09 PM EDT [facility] Phosphorus, Plasma 2.9 2.5 - 4.5 mg/dL 05/21/2024 1:09 PM EDT [facility] Albumin, Plasma 1.9(L) 3.5 - 5.2 g/dL 05/21/2024 1:09 PM EDT [facility] eGFRcr 106.0 mL/min/1.7 3m*2 05/21/2024 1:09 PM EDT [facility] Comment:Reported eGFRcr in m L/min/1.73m2 is based the CKD-EPI 2020 equation that does not use a race coefficient. Blood Arterial blood specimen / Unknown Venipuncture / Unknown 05/21/2024 12:09 PM EDT 05/21/2024 12:20 PM EDT Reyna A Sabas [employer]SEMBL[employer] LAB BLOOD ORDERABLES Namrata l Result [facility] [address] [place] [address] * Magnesium (05/21/2024 12:09 PM EDT) Magnesium, Plasma 2.2 1.9 - 2.4 mg/dL 05/21/2024 1:09 PM EDT [facility] Blood Arterial blood specimen / Unknown Venipuncture / Unknown 05/21/2024 12:09 PM EDT 05/21/2024 12:20 PM EDT Reyna A Sabas [employer] AS[employer]ER LAB BLOOD ORDERABLES Namrata l Result [facility] [address] [place] [address] * (ABNORMAL) Ionized calcium, whole blood (05/21/2024 12:09 PM EDT) Ionized Calcium, Whole Blood 4.2(L) 4.6 - 5.1 mg/dL LAB HEMATOLOGY METHOD 05/21/2024 12:21 PM EDT [facility] Blood Arterial blood specimen / Unknown Venipuncture / Unknown 05/21/2024 12:09 PM EDT 05/21/2024 12:19 PM EDT us Reyna Obregon [employer] LAB BLOOD ORDERABLES Namrata l Result [facility] [address] [place] [address] * [place] [facility], E/M 30-74 MINUTES (05/21/2024 11:41 [...] Comment 05/21/2024 6:03 AM EDT [facility] Hot Plate [employer]wood Press Offbearer ID Cass Corrales 05/21/2024 6:03 AM EDT [facility] Device ID [id number] 05/21/2024 6:03 AM EDT [facility] Specimen Type POC Arterial 05/21/2024 6:03 AM EDT [facility] Blood Arterial blood specimen / Unknown 05/21/2024 6:01 AM EDT 05/21/2024 6:03 AM EDT us Maite Austin MD LAB POINT OF CARE TE ST DOCKED DEVICE UNSOLICITED RESULTS Final Result Performing Organization Address City/[facility]/ZIP Co de Phone Number [facility] [address] [place] [address] * (ABNORMAL) Ionized calcium, whole blood (05/21/2024 5:56 AM EDT) [facility] Ionized Calcium, Whole Blood 4.2(L) 4.6 - 5.1 mg/dL LAB HEMATOLOGY METHOD 05/21/2024 6:12 AM EDT [facility] Blood Venous blood specimen / Unknown Venipuncture / Unknown 05/21/2024 5:56 AM EDT 05/21/2024 6:11 AM EDT us Lauren Noguera [employer] ASSEMBLER, SURGICAL TECHNOLOGY INSTRUCTOR, DNP LAB BLOOD ORDERABL ES Final Result [facility] [address] [place] [address] * Magnesium (05/21/2024 5:56 AM EDT) [facility] Magnesium, Plasma 2.2 1.9 - 2.4 mg/dL 05/21/2024 6:45 AM EDT [facility] Blood Venous blood specimen / Unknown Venipuncture / Unknown 05/21/2024 5:56 AM EDT 05/21/2024 6:12 AM EDT us Lauren Noguera [employer] ASSEMBLER, SURGICAL TECHNOLOGY INSTRUCTOR, DNP LAB BLOOD ORDERABL ES Final Result [facility] [address] [place] [address] * (ABNORMAL) Renal Function Panel, Plasma (05/21/2024 5:56 AM EDT) Glucose, Plasma 139(H) 74 - 99 mg/dL 05/21/2024 6:45 AM EDT [facility] BUN, Plasma 13 7 - 21 mg/dL 05/21/2024 6:45 AM EDT [facility] Creatinine, Plasma 0.68 0.60 - 1.10 mg/dL 05/21/2024 6:45 AM EDT [facility] BUN/Creatinine Ratio 19 05/21/2024 6:45 AM EDT [facility] Sodium, Plasma 140 136 - 145 mmol/L 05/21/2024 6:45 AM EDT [facility] Potassium, Plasma 3.7 3.6 - 4.9 mmol/L 05/21/2024 6:45 AM EDT [facility] Chloride, Plasma 108(H) 97 - 107 mmol/L 05/21/2024 6:45 AM EDT [facility] CO2, Plasma 22 22 - 29 mmol/L 05/21/2024 6:45 AM EDT [facility] Anion Gap 10 6 - 16 mmol/L 05/21/2024 6:45 AM EDT [facility] Total Calcium, Plasma 7.3(L) 8.9 - 10.2 mg/dL 05/21/2024 6:45 AM EDT [facility] Phosphorus, Plasma 3.9 2.5 - 4.5 mg/dL 05/21/2024 6:45 AM EDT [facility] Albumin, Plasma 2.0(L) 3.5 - 5.2 g/dL 05/21/2024 6:45 AM EDT [facility] eGFRcr 103.6 mL/min/1.7 3m*2 05/21/2024 6:45 AM EDT [facility] Comment:Reported eGFRcr in m L/min/1.73m2 is based the CKD-EPI 2020 equation that does not use a race coefficient. Blood Venous blood specimen / Unknown Venipuncture / Unknown 05/21/2024 5:56 AM EDT 05/21/2024 6:12 AM EDT us Lauren Noguera [employer] ASSEMBLER, SURGICAL TECHNOLOGY INSTRUCTOR, DNP LAB BLOOD ORDERABL ES Final Result [facility] [address] [place] [address] * XR Chest 1 View (05/21/2024 2:21 [...] whole blood (05/21/2024 12:09 AM EDT) Pathologist [facility] Ionized Calcium, Whole Blood 4.3(L) 4.6 - 5.1 mg/dL LAB HEMATOLOGY METHOD 05/21/2024 12:16 AM EDT [facility] Blood Venous blood specimen / Unknown Venipuncture / Unknown 05/21/2024 12:09 AM EDT 05/21/2024 12:15 AM EDT us Lauren Noguera [employer] ASSEMBLER, SURGICAL TECHNOLOGY INSTRUCTOR, DNP LAB BLOOD ORDERABL ES Final Result Performing Organization Address City/[facility]/ZIP Co de Phone Number [facility] [address] [place] [address] * Morphology (05/20/2024 11:48 PM EDT) Pathologist [facility] Polychromasia Slight LAB HEMATOLOGY METHOD 05/21/2024 1:20 AM EDT [facility] RBC Morphology Slide Reviewed LAB HEMATOLOGY METHOD 05/21/2024 1:20 AM EDT [facility] Platelet Estimate Platelet smear estimate consistent with automated count LAB HEMATOLOGY METHOD 05/21/2024 1:20 AM EDT [facility] Blood Venous blood specimen / Unknown Venipuncture / Unknown 05/20/2024 11:48 PM EDT 05/21/2024 12:00 AM EDT us Marybel Suarez APRN LAB BLOOD ORDERABLES Fin al Result [facility] [address] [place] [address] * (ABNORMAL) Manual Differential (05/20/2024 11:48 PM EDT) Blasts % 0 % LAB HEMATOLOGY METHOD 05/21/2024 1:20 AM EDT [facility] Promyelocytes % 0 % LAB HEMATOLOGY METHOD 05/21/2024 1:20 AM EDT [facility] Myelocytes % 4 % LAB HEMATOLOGY METHOD 05/21/2024 1:20 AM EDT [facility] Metamyelocytes % 0 % LAB HEMATOLOGY METHOD 05/21/2024 1:20 AM EDT [facility] Neutrophils % 59 % LAB HEMATOLOGY METHOD 05/21/2024 1:20 AM EDT [facility] Lymphocytes % 20 % LAB HEMATOLOGY METHOD 05/21/2024 1:20 AM EDT [facility] Reactive Lymphocytes % 1 % LAB HEMATOLOGY METHOD 05/21/2024 1:20 AM EDT [facility] Monocytes % 13 % LAB HEMATOLOGY METHOD 05/21/2024 1:20 AM EDT [facility] Eosinophils % 2 % LAB HEMATOLOGY METHOD 05/21/2024 1:20 AM EDT [facility] Basophils % 1 % LAB HEMATOLOGY METHOD 05/21/2024 1:20 AM EDT [facility] Blasts Absolute 0.00 10*3/UL LAB HEMATOLOGY METHOD 05/21/2024 1:20 AM EDT [facility] Promyelocytes Absolute 0.00 10*3/uL LAB HEMATOLOGY METHOD 05/21/2024 1:20 AM EDT [facility] Myelocytes Absolute 0.52 10*3/uL LAB HEMATOLOGY METHOD 05/21/2024 1:20 AM EDT [facility] Metamyelocytes Absolute 0.00 10*3/uL LAB HEMATOLOGY METHOD 05/21/2024 1:20 AM EDT [facility] Neutrophils Absolute 7.60(H) 1.60 - 6.10 10*3/uL LAB HEMATOLOGY METHOD 05/21/2024 1:20 AM EDT [facility] Lymphocytes Absolute 2.58 1.20 - 3.90 10*3/uL LAB HEMATOLOGY METHOD 05/21/2024 1:20 AM EDT [facility] Reactive Lymphocytes Absolute 0.13 10*3/uL LAB HEMATOLOGY METHOD 05/21/2024 1:20 AM EDT [facility] Monocytes Absolute 1.67(H) 0.30 - 0.90 10*3/uL LAB HEMATOLOGY METHOD 05/21/2024 1:20 AM EDT [facility] Eosinophils Absolute 0.26 0.00 - 0.50 10*3/uL LAB HEMATOLOGY METHOD 05/21/2024 1:20 AM EDT [facility] Basophils Absolute 0.13(H) 0.00 - 0.10 10*3/uL LAB HEMATOLOGY METHOD 05/21/2024 1:20 AM EDT [facility] Blood Venous blood specimen / Unknown Venipuncture / Unknown 05/20/2024 11:48 PM EDT 05/21/2024 12:00 AM EDT us Marybel Suarez APRN LAB BLOOD ORDERABLES Fin al Result Performing Organization Address City/[facility]/ZIP Co de Phone Number [facility] [address] [place] [address] * Magnesium (05/20/2024 11:48 PM EDT) Magnesium, Plasma 2.3 1.9 - 2.4 mg/dL 05/21/2024 12:30 AM EDT [facility] Blood Venous blood specimen / Unknown Venipuncture / Unknown 05/20/2024 11:48 PM EDT 05/21/2024 12:00 AM EDT Lauren Noguera [employer]S ASSEMBLER, SURGICAL TECHNOLOGY INSTRUCTOR, DNP LAB BLOOD ORDERABL ES Final Result [facility] [address] [place] [address] * (ABNORMAL) Renal Function Panel, Plasma (05/20/2024 11:48 PM EDT) Glucose, Plasma 141(H) 74 - 99 mg/dL 05/21/2024 12:30 AM EDT [facility] BUN, Plasma 12 7 - 21 mg/dL 05/21/2024 12:30 AM EDT [facility] Creatinine, Plasma 0.76 0.60 - 1.10 mg/dL 05/21/2024 12:30 AM EDT [facility] BUN/Creatinine Ratio 16 05/21/2024 12:30 AM EDT [facility] Sodium, Plasma 141 136 - 145 mmol/L 05/21/2024 12:30 AM EDT [facility] Potassium, Plasma 3.5(L) 3.6 - 4.9 mmol/L 05/21/2024 12:30 AM EDT [facility] Chloride, Plasma 110(H) 97 - 107 mmol/L 05/21/2024 12:30 AM EDT [facility] CO2, Plasma 23 22 - 29 mmol/L 05/21/2024 12:30 AM EDT [facility] Anion Gap 8 6 - 16 mmol/L 05/21/2024 12:30 AM EDT [facility] Total Calcium, Plasma 7.4(L) 8.9 - 10.2 mg/dL 05/21/2024 12:30 AM EDT [facility] Phosphorus, Plasma 3.1 2.5 - 4.5 mg/dL 05/21/2024 12:30 AM EDT [facility] Albumin, Plasma 2.0(L) 3.5 - 5.2 g/dL 05/21/2024 12:30 AM EDT [facility] eGFRcr 93.3 mL/min/1.7 3m*2 05/21/2024 12:30 AM EDT [facility] Comment:Reported eGFRcr in m L/min/1.73m2 is based the CKD-EPI 2020 equation that does not use a race coefficient. Blood Venous blood specimen / Unknown Venipuncture / Unknown 05/20/2024 11:48 PM EDT 05/21/2024 12:00 AM EDT us Lauren Noguera [employer] ASSEMBLER, SURGICAL TECHNOLOGY INSTRUCTOR, DNP LAB BLOOD ORDERABL ES Final Result [facility] [address] [place] [address] * (ABNORMAL) CBC and Differential (05/20/2024 11:48 PM EDT) WBC Count 12.88(H) 3.70 - 10.30 10*3/uL LAB HEMATOLOGY METHOD 05/21/2024 1:20 AM EDT [facility] RBC Count 3.29(L) 3.90 - 5.20 10*6/uL LAB HEMATOLOGY METHOD 05/21/2024 1:20 AM EDT [facility] HGB 9.6(L) 11.2 - 15.7 g/dL LAB HEMATOLOGY METHOD 05/21/2024 1:20 AM EDT [facility] HCT 29.5(L) 34.0 - 45.0 % LAB HEMATOLOGY METHOD 05/21/2024 1:20 AM EDT [facility] Platelet Count 605(H) 155 - 369 10*3/uL LAB HEMATOLOGY METHOD 05/21/2024 1:20 AM EDT [facility] MCV 90 79 - 98 fL LAB HEMATOLOGY METHOD 05/21/2024 1:20 AM EDT [facility] MCH 29.2 26.0 - 32.0 pg LAB HEMATOLOGY METHOD 05/21/2024 1:20 AM EDT [facility] MCHC 32.5 30.7 - 35.5 g/dL LAB HEMATOLOGY METHOD 05/21/2024 1:20 AM EDT [facility] RDW 15.7(H) 11.5 - 14.5 % LAB HEMATOLOGY METHOD 05/21/2024 1:20 AM EDT [facility] MPV 9.7 8.8 - 12.5 fL LAB HEMATOLOGY METHOD 05/21/2024 1:20 AM EDT [facility] nRBC 0.2(H) <=0.0 per 100 WBCs LAB HEMATOLOGY METHOD 05/21/2024 1:20 AM EDT [facility] Differential Type Manual LAB HEMATOLOGY METHOD 05/21/2024 1:20 AM EDT [facility] Blood Venous blood specimen / Unknown Venipuncture / Unknown 05/20/2024 11:48 PM EDT 05/21/2024 12:00 AM EDT Narrative [facility] - 05/21/2024 1:20 AM EDT Therapeutic [...] APRN LAB BLOOD ORDERABLES Fin al Result [facility] [address] [place] [address] * (ABNORMAL) Comprehensive metabolic panel (05/20/2024 11:48 PM EDT) Glucose, Plasma 141(H) 74 - 99 mg/dL 05/21/2024 12:30 AM EDT [facility] BUN, Plasma 12 7 - 21 mg/dL 05/21/2024 12:30 AM EDT [facility] Creatinine, Plasma 0.76 0.60 - 1.10 mg/dL 05/21/2024 12:30 AM EDT [facility] BUN/Creatinine Ratio 16 05/21/2024 12:30 AM EDT [facility] Sodium, Plasma 141 136 - 145 mmol/L 05/21/2024 12:30 AM EDT [facility] Potassium, Plasma 3.5(L) 3.6 - 4.9 mmol/L 05/21/2024 12:30 AM EDT [facility] Chloride, Plasma 110(H) 97 - 107 mmol/L 05/21/2024 12:30 AM EDT [facility] CO2, Plasma 23 22 - 29 mmol/L 05/21/2024 12:30 AM EDT [facility] Anion Gap 8 6 - 16 mmol/L 05/21/2024 12:30 AM EDT [facility] Total Calcium, Plasma 7.4(L) 8.9 - 10.2 mg/dL 05/21/2024 12:30 AM EDT [facility] Total Protein 5.7(L) 6.3 - 7.9 g/dL 05/21/2024 12:30 AM EDT [facility] Albumin, Plasma 2.0(L) 3.5 - 5.2 g/dL 05/21/2024 12:30 AM EDT [facility] AST, Plasma 39(H) 10 - 35 U/L 05/21/2024 12:30 AM EDT [facility] ALT, Plasma 22 10 - 35 U/L 05/21/2024 12:30 AM EDT [facility] Alkaline Phosphatase, Plasma 120(H) 35 - 104 U/L 05/21/2024 12:30 AM EDT [facility] Total Bilirubin, Plasma 0.7 0.2 - 1.1 mg/dL 05/21/2024 12:30 AM EDT [facility] eGFRcr 93.3 mL/min/1.7 3m*2 05/21/2024 12:30 AM EDT [facility] Comment:Reported eGFRcr in m L/min/1.73m2 is based the CKD-EPI 2020 equation that does not use a race coefficient. Blood Venous blood specimen / Unknown Venipuncture / Unknown 05/20/2024 11:48 PM EDT 05/21/2024 12:00 AM EDT Marybel Suarez APRN LAB BLOOD ORDERABLES Fin al Result [facility] [address] [place] [address] * (ABNORMAL) POCT glucose meter (05/20/2024 11:47 PM EDT) POCT Glucose 139(H) 74 - 99 mg/dL 05/20/2024 11:57 PM EDT [facility] Comment:Accuracy of a glucos e [...] for testing. Comment 05/20/2024 11:57 PM EDT [facility] Hot Plate [employer]wood Press Offbearer ID Cass Corrales 05/20/2024 11:57 PM EDT [facility] LAB Device ID [id number] 05/20/2024 11:57 PM EDT [facility] Specimen Type POC Arterial 05/20/2024 11:57 PM EDT [facility] Blood Arterial blood specimen / Unknown 05/20/2024 11:47 PM EDT 05/20/2024 11:57 PM EDT us Maite Austin MD LAB POINT OF CARE TE ST DOCKED DEVICE UNSOLICITED RESULTS Final Result Performing Organization Address City/[facility]/ZIP Co de Phone Number [facility] [address] [place] [address] * (ABNORMAL) POCT glucose meter (05/20/2024 6:35 PM EDT) POCT Glucose 124(H) 74 - [...] for testing. Comment 05/20/2024 6:37 PM EDT [facility] Hot Plate [employer]wood Press Offbearer ID Dina Casiano 05/20/2024 6:37 PM EDT [facility] LAB Device ID [id number] 05/20/2024 6:37 PM EDT [facility] Specimen Type POC Arterial 05/20/2024 6:37 PM EDT [facility] Blood Arterial blood specimen / Unknown 05/20/2024 6:35 PM EDT 05/20/2024 6:37 PM EDT us Maite Austin MD LAB POINT OF CARE TE ST DOCKED DEVICE UNSOLICITED RESULTS Final Result [facility] [address] [place] [address] * Magnesium (05/20/2024 6:35 PM EDT) Magnesium, Plasma 2.2 1.9 - 2.4 mg/dL 05/20/2024 7:22 PM EDT [facility] Blood Venous blood specimen / Unknown Venipuncture / Unknown 05/20/2024 6:35 PM EDT 05/20/2024 6:49 PM EDT us Maite Austin MD LAB BLOOD ORDERABLES Final Resu lt [facility] [address] [place] [address] * (ABNORMAL) Renal function panel (05/20/2024 6:35 PM EDT) Glucose, Plasma 135(H) 74 - 99 mg/dL 05/20/2024 7:22 PM EDT [facility] BUN, Plasma 12 7 - 21 mg/dL 05/20/2024 7:22 PM EDT [facility] Creatinine, Plasma 0.78 0.60 - 1.10 mg/dL 05/20/2024 7:22 PM EDT [facility] BUN/Creatinine Ratio 15 05/20/2024 7:22 PM EDT [facility] Sodium, Plasma 139 136 - 145 mmol/L 05/20/2024 7:22 PM EDT [facility] Potassium, Plasma 3.3(L) 3.6 - 4.9 mmol/L 05/20/2024 7:22 PM EDT [facility] Chloride, Plasma 107 97 - 107 mmol/L 05/20/2024 7:22 PM EDT [facility] CO2, Plasma 21(L) 22 - 29 mmol/L 05/20/2024 7:22 PM EDT [facility] Anion Gap 11 6 - 16 mmol/L 05/20/2024 7:22 PM EDT [facility] Total Calcium, Plasma 7.5(L) 8.9 - 10.2 mg/dL 05/20/2024 7:22 PM EDT [facility] Phosphorus, Plasma 2.1(L) 2.5 - 4.5 mg/dL 05/20/2024 7:22 PM EDT [facility] Albumin, Plasma 2.2(L) 3.5 - 5.2 g/dL 05/20/2024 7:22 PM EDT [facility] eGFRcr 90.4 mL/min/1.7 3m*2 05/20/2024 7:22 PM EDT [facility] Comment:Reported eGFRcr in m L/min/1.73m2 is based the CKD-EPI 2020 equation that does not use a race coefficient. Blood Venous blood specimen / Unknown Venipuncture / Unknown 05/20/2024 6:35 PM EDT 05/20/2024 6:49 PM EDT us Maite Austin MD LAB BLOOD ORDERABLES Final Resu lt [facility] [address] [place] [address] * [place] [facility], E/M 30-74 MINUTES (05/20/2024 1:19 [...] Comment 05/20/2024 12:40 PM EDT [facility] Hot Plate [employer] Press Offbearer ID Dina Casiano 05/20/2024 12:40 PM EDT [facility] LAB Device ID [id number] 05/20/2024 12:40 PM EDT [facility] Specimen Type POC Arterial 05/20/2024 12:40 PM EDT [facility] Blood Arterial blood specimen / Unknown 05/20/2024 12:39 PM EDT 05/20/2024 12:40 PM EDT us Maite Austin MD LAB POINT OF CARE TE ST DOCKED DEVICE UNSOLICITED RESULTS Final Result Performing Organization Address City/State/[facility] Co de Phone Number [facility] [address] [place] [address] * CT Abdomen Pelvis wo IV Contrast [...] LAB HEMATOLOGY METHOD 05/20/2024 2:25 AM EDT [facility] pCO2, Arterial 36 35 - 48 mmHg LAB HEMATOLOGY METHOD 05/20/2024 2:25 AM EDT [facility] pO2, Arterial 102 83 - 108 mmHg LAB HEMATOLOGY METHOD 05/20/2024 2:25 AM EDT [facility] SO2, Measured, Arterial 97 94 - 98 % LAB HEMATOLOGY METHOD 05/20/2024 2:25 AM EDT [facility] Base Excess, Arterial -1.7 -2.0 - 3.0 mmol/L LAB HEMATOLOGY METHOD 05/20/2024 2:25 AM EDT [facility] Bicarbonate, Calculated, Arterial 23 22 - 26 mmol/L LAB HEMATOLOGY METHOD 05/20/2024 2:25 AM EDT [facility] Hematocrit, Whole Blood 27.0(L) 34.0 - 45.0 % LAB HEMATOLOGY METHOD 05/20/2024 2:25 AM EDT [facility] Sodium, Whole Blood 141 136 - 145 mmol/L LAB HEMATOLOGY METHOD 05/20/2024 2:25 AM EDT [facility] Potassium, Whole Blood 3.6 3.6 - 4.9 mmol/L LAB HEMATOLOGY METHOD 05/20/2024 2:25 AM EDT [facility] Chloride, Whole Blood 112(H) 97 - 107 mmol/L LAB HEMATOLOGY METHOD 05/20/2024 2:25 AM EDT [facility] Glucose, Whole Blood 120(H) 74 - 99 mg/dL LAB HEMATOLOGY METHOD 05/20/2024 2:25 AM EDT [facility] Ionized Calcium, Whole Blood 4.1(L) 4.6 - 5.1 mg/dL LAB HEMATOLOGY METHOD 05/20/2024 2:25 AM EDT [facility] Lactate, Arterial, Whole Blood 1.0 0.5 - 1.6 mmol/L LAB HEMATOLOGY METHOD 05/20/2024 2:25 AM EDT [facility] Blood Arterial blood specimen / Unknown Arterial Puncture / Unknown 05/20/2024 2:16 AM EDT 05/20/2024 2:23 AM EDT us Marybel Suarez APRN LAB BLOOD ORDERABLES Fin al Result Performing Organization Address City/[facility]/ZIP Co de Phone Number [facility] [address] [place] [address] * Phosphorus (05/20/2024 2:15 AM EDT) Phosphorus, Plasma 3.2 2.5 - 4.5 mg/dL 05/20/2024 1:41 PM EDT [facility] Blood Venous blood specimen / Unknown Venipuncture / Unknown 05/20/2024 2:15 AM EDT 05/20/2024 2:21 AM EDT us Maite Austin MD LAB BLOOD ORDERABLES Final Resu lt Performing Organization Address City/[facility]/ZIP Co de Phone Number [facility] [address] [place] [address] * (ABNORMAL) CBC and Differential (05/20/2024 2:15 AM EDT) WBC Count 12.37(H) 3.70 - 10.30 10*3/uL LAB HEMATOLOGY METHOD 05/20/2024 3:19 AM EDT [facility] RBC Count 3.13(L) 3.90 - 5.20 10*6/uL LAB HEMATOLOGY METHOD 05/20/2024 3:19 AM EDT [facility] HGB 9.1(L) 11.2 - 15.7 g/dL LAB HEMATOLOGY METHOD 05/20/2024 3:19 AM EDT [facility] HCT 28.3(L) 34.0 - 45.0 % LAB HEMATOLOGY METHOD 05/20/2024 3:19 AM EDT [facility] Platelet Count 632(H) 155 - 369 10*3/uL LAB HEMATOLOGY METHOD 05/20/2024 3:19 AM EDT [facility] MCV 90 79 - 98 fL LAB HEMATOLOGY METHOD 05/20/2024 3:19 AM EDT [facility] MCH 29.1 26.0 - 32.0 pg LAB HEMATOLOGY METHOD 05/20/2024 3:19 AM EDT [facility] MCHC 32.2 30.7 - 35.5 g/dL LAB HEMATOLOGY METHOD 05/20/2024 3:19 AM EDT [facility] RDW 16.3(H) 11.5 - 14.5 % LAB HEMATOLOGY METHOD 05/20/2024 3:19 AM EDT [facility] MPV 9.8 8.8 - 12.5 fL LAB HEMATOLOGY METHOD 05/20/2024 3:19 AM EDT [facility] nRBC 0.0 <=0.0 per 100 WBCs LAB HEMATOLOGY METHOD 05/20/2024 3:19 AM EDT [facility] Differential Type Automated LAB HEMATOLOGY METHOD 05/20/2024 3:19 AM EDT [facility] Neutrophils % 64 % LAB HEMATOLOGY METHOD 05/20/2024 3:19 AM EDT [facility] Lymphocytes % 18 % LAB HEMATOLOGY METHOD 05/20/2024 3:19 AM EDT [facility] Monocytes % 11 % LAB HEMATOLOGY METHOD 05/20/2024 3:19 AM EDT [facility] Eosinophils % 3 % LAB HEMATOLOGY METHOD 05/20/2024 3:19 AM EDT [facility] Basophils % 1 % LAB HEMATOLOGY METHOD 05/20/2024 3:19 AM EDT [facility] Immature Granulocytes % 3 % LAB HEMATOLOGY METHOD 05/20/2024 3:19 AM EDT [facility] Neutrophils Absolute 7.92(H) 1.60 - 6.10 10*3/uL LAB HEMATOLOGY METHOD 05/20/2024 3:19 AM EDT [facility] Lymphocytes Absolute 2.27 1.20 - 3.90 10*3/uL LAB HEMATOLOGY METHOD 05/20/2024 3:19 AM EDT [facility] Monocytes Absolute 1.36(H) 0.30 - 0.90 10*3/uL LAB HEMATOLOGY METHOD 05/20/2024 3:19 AM EDT [facility] Eosinophils Absolute 0.37 0.00 - 0.50 10*3/uL LAB HEMATOLOGY METHOD 05/20/2024 3:19 AM EDT [facility] Basophils Absolute 0.10 0.00 - 0.10 10*3/uL LAB HEMATOLOGY METHOD 05/20/2024 3:19 AM EDT [facility] Immature Granulocytes Absolute 0.35(H) 0.00 - 0.06 10*3/uL LAB HEMATOLOGY METHOD 05/20/2024 3:19 AM EDT [facility] Blood Venous blood specimen / Unknown Venipuncture / Unknown 05/20/2024 2:15 AM EDT 05/20/2024 2:21 AM EDT Narrative [facility] - 05/20/2024 3:19 AM EDT Therapeutic decision making should be based on absolute values, rather than percentages. [facility] Joelle Daniela [employer] LAB BLOOD ORDERABLES Fin al Result Performing Organization Address City/[facility]/ZIP Co de Phone Number [facility] [address] [place] [address] * (ABNORMAL) Magnesium, Plasma (05/20/2024 2:15 AM EDT) Magnesium, Plasma 2.7(H) 1.9 - 2.4 mg/dL 05/20/2024 2:51 AM EDT [facility] Blood Venous blood specimen / Unknown Venipuncture / Unknown 05/20/2024 2:15 AM EDT 05/20/2024 2:21 AM EDT [facility] Daniela [employer] LAB BLOOD ORDERABLES Fin al Result Performing Organization Address City/[facility]/ZIP Co de Phone Number [facility] [address] [place] [address] * (ABNORMAL) Comprehensive metabolic panel (05/20/2024 2:15 AM EDT) [facility] Signature Glucose, Plasma 127(H) 74 - 99 mg/dL 05/20/2024 2:51 AM EDT [facility] BUN, Plasma 11 7 - 21 mg/dL 05/20/2024 2:51 AM EDT [facility] Creatinine, Plasma 0.78 0.60 - 1.10 mg/dL 05/20/2024 2:51 AM EDT [facility] BUN/Creatinine Ratio 14 05/20/2024 2:51 AM EDT [facility] Sodium, Plasma 141 136 - 145 mmol/L 05/20/2024 2:51 AM EDT [facility] Potassium, Plasma 3.9 3.6 - 4.9 mmol/L 05/20/2024 2:51 AM EDT [facility] Chloride, Plasma 112(H) 97 - 107 mmol/L 05/20/2024 2:51 AM EDT [facility] CO2, Plasma 21(L) 22 - 29 mmol/L 05/20/2024 2:51 AM EDT [facility] Anion Gap 8 6 - 16 mmol/L 05/20/2024 2:51 AM EDT [facility] Total Calcium, Plasma 7.0(L) 8.9 - 10.2 mg/dL 05/20/2024 2:51 AM EDT [facility] Total Protein 5.5(L) 6.3 - 7.9 g/dL 05/20/2024 2:51 AM EDT [facility] Albumin, Plasma 2.0(L) 3.5 - 5.2 g/dL 05/20/2024 2:51 AM EDT [facility] AST, Plasma 53(H) 10 - 35 U/L 05/20/2024 2:51 AM EDT [facility] ALT, Plasma 20 10 - 35 U/L 05/20/2024 2:51 AM EDT [facility] Alkaline Phosphatase, Plasma 117(H) 35 - 104 U/L 05/20/2024 2:51 AM EDT [facility] Total Bilirubin, Plasma 0.7 0.2 - 1.1 mg/dL 05/20/2024 2:51 AM EDT [facility] eGFRcr 90.4 mL/min/1.7 3m*2 05/20/2024 2:51 AM EDT [facility] Comment:Reported eGFRcr in m L/min/1.73m2 is based the CKD-EPI 2020 equation that does not use a race coefficient. Blood Venous blood specimen / Unknown Venipuncture / Unknown 05/20/2024 2:15 AM EDT 05/20/2024 2:21 AM EDT [facility] D Daniela [employer] LAB BLOOD ORDERABLES Fin al Result Performing Organization Address City/[facility]/ZIP Co de Phone Number [facility] [address] [place] [address] * (ABNORMAL) Lipase (05/20/2024 2:15 AM EDT) Lipase, Plasma 84(H) 19 - 63 U/L 05/20/2024 2:51 AM EDT [facility] Blood Venous blood specimen / Unknown Venipuncture / Unknown 05/20/2024 2:15 AM EDT 05/20/2024 2:21 AM EDT [facility] Daniela [employer] LAB BLOOD ORDERABLES Fin al Result Performing Organization Address [facility]/ZIP Co de Phone Number [facility] [address] [place] [address] * XR Chest 1 View (05/20/2024 1:23 [...] 99 mg/dL 05/19/2024 11:31 PM EDT [facility] Comment:Accuracy of [...] 05/19/2024 11:31 PM EDT [facility] Hot Plate Plywood Press Offbearer ID Akhmedov, Efren 05/20/19 11:31 PM EDT [facility] Device ID [id number] 05/19/2024 11:31 PM EDT [facility] Specimen Type POC Capillary 05/19/2024 11:31 PM EDT [facility] Blood Capillary blood specimen / Unknown 05/19/2024 11:30 PM EDT 05/19/2024 11:31 PM EDT us Maite Austin MD LAB POINT OF CARE TE ST DOCKED DEVICE UNSOLICITED RESULTS Final Result Performing Organization Address [facility] Co de Phone Number [facility] [address] [place] [address] * (ABNORMAL) Magnesium (05/19/2024 6:32 PM EDT) Magnesium, Plasma 1.8(L) 1.9 - 2.4 mg/dL 05/19/2024 7:12 PM EDT [facility] Blood Venous blood specimen / Unknown Venipuncture / Unknown 05/19/2024 6:32 PM EDT 05/19/2024 6:46 PM EDT us Maite Austin MD LAB BLOOD ORDERABLES Final Resu lt Performing Organization Address City/[facility]/ZIP Co de Phone Number [facility] [address] [place] [address] * (ABNORMAL) Renal function panel (05/19/2024 6:32 PM EDT) Glucose, Plasma 103(H) 74 - 99 mg/dL 05/19/2024 7:12 PM EDT [facility] BUN, Plasma 10 7 - 21 mg/dL 05/19/2024 7:12 PM EDT [facility] Creatinine, Plasma 0.87 0.60 - 1.10 mg/dL 05/19/2024 7:12 PM EDT [facility] BUN/Creatinine Ratio 11 05/19/2024 7:12 PM EDT [facility] Sodium, Plasma 141 136 - 145 mmol/L 05/19/2024 7:12 PM EDT [facility] Potassium, Plasma 4.0 3.6 - 4.9 mmol/L 05/19/2024 7:12 PM EDT [facility] Chloride, Plasma 111(H) 97 - 107 mmol/L 05/19/2024 7:12 PM EDT [facility] CO2, Plasma 20(L) 22 - 29 mmol/L 05/19/2024 7:12 PM EDT [facility] Anion Gap 10 6 - 16 mmol/L 05/19/2024 7:12 PM EDT [facility] Total Calcium, Plasma 6.9(L) 8.9 - 10.2 mg/dL 05/19/2024 7:12 PM EDT [facility] Phosphorus, Plasma 2.8 2.5 - 4.5 mg/dL 05/19/2024 7:12 PM EDT [facility] Albumin, Plasma 2.1(L) 3.5 - 5.2 g/dL 05/19/2024 7:12 PM EDT [facility] eGFRcr 79.3 mL/min/1.7 3m*2 05/19/2024 7:12 PM EDT [facility] Comment:Reported eGFRcr in m L/min/1.73m2 is based the CKD-EPI 2020 equation that does not use a race coefficient. Blood Venous blood specimen / Unknown Venipuncture / Unknown 05/19/2024 6:32 PM EDT 05/19/2024 6:46 PM EDT us Maite Austin MD LAB BLOOD ORDERABLES Final Resu lt [facility] [address] [place] [address] * (ABNORMAL) POCT glucose meter (05/19/2024 6:31 PM EDT) POCT Glucose 108(H) 74 - 99 mg/dL 05/19/2024 6:33 PM EDT [facility] Comment:Accuracy of a [...] Comment 05/19/2024 6:33 PM EDT [facility] Hot Plate [employer]wood Press Offbearer ID Dina Casiano 05/19/2024 6:33 PM EDT [facility] Device ID [id number] 05/19/2024 6:33 PM EDT [facility] Specimen Type POC Arterial 05/19/2024 6:33 PM EDT [facility] Blood Arterial blood specimen / Unknown 05/19/2024 6:31 PM EDT 05/19/2024 6:33 PM EDT us Maite Austin MD LAB POINT OF CARE TE ST DOCKED DEVICE UNSOLICITED RESULTS Final Result Performing Organization Address City/State/[facility] Co de Phone Number [facility] [address] [place] [id number] * [place] [facility], E/M 30-74 MINUTES (05/19/2024 2:52 [...] with the findings and plan as documented. Dieudonne Cramer MD IN CLINIC/BEDSIDE ORDERABLES Final Result * (ABNORMAL) POCT glucose meter (05/19/2024 11:52 AM EDT) POCT Glucose 102(H) 74 - 99 mg/dL 05/19/2024 11:54 AM EDT [facility] Comment:Accuracy of [...] Comment 05/19/2024 11:54 AM EDT [facility] Hot Plate [employer]wood Press Offbearer ID Dina Casiano 05/19/2024 11:54 AM EDT [facility] Device ID [id number] 05/19/2024 11:54 AM EDT [facility] Specimen Type POC Arterial 05/19/2024 11:54 AM EDT [facility] Blood Arterial blood specimen / Unknown 05/19/2024 11:52 AM EDT 05/19/2024 11:54 AM EDT us Maite Austin MD LAB POINT OF CARE TE ST DOCKED DEVICE UNSOLICITED RESULTS Final Result Performing Organization Address [facility] Phone Number [facility] [address] [place] [address] * Triglycerides (05/19/2024 11:42 AM EDT) Triglycerides, Plasma 76 <150 mg/dL 05/19/2024 1:45 PM EDT [facility] Comment: Triglyceride Reference Range (age >17 years): Desirable: <150 mg/dL Borderline high: 150 to 199 mg/dL High: 200 to 499 mg/dL Very high: >499 mg/dL Increased risk of pancreatitis: >1000 mg/dL Fasting greater than or equal to 12 hours? Unknown 05/19/2024 1:45 PM EDT [facility] Blood Venous blood specimen / Unknown Venipuncture / Unknown 05/19/2024 11:42 AM EDT 05/19/2024 12:00 PM EDT us Maite Austin MD LAB BLOOD ORDERABLES Final Resu lt Performing Organization Address City/[facility] Co de Phone Number [facility] [address] [place] [address] * (ABNORMAL) Magnesium, Plasma (05/19/2024 11:42 AM EDT) Magnesium, Plasma 1.8(L) 1.9 - 2.4 mg/dL 05/19/2024 12:33 PM EDT [facility] Blood Venous blood specimen / Unknown Venipuncture / Unknown 05/19/2024 11:42 AM EDT 05/19/2024 12:00 PM EDT Marybel Suarez APRN LAB BLOOD ORDERABLES Fin al Result [facility] [address] [place] [address] * (ABNORMAL) Renal Function Panel, Plasma (05/19/2024 11:42 AM EDT) Glucose, Plasma 106(H) 74 - 99 mg/dL 05/19/2024 12:33 PM EDT [facility] BUN, Plasma 10 7 - 21 mg/dL 05/19/2024 12:33 PM EDT [facility] Creatinine, Plasma 0.91 0.60 - 1.10 mg/dL 05/19/2024 12:33 PM EDT [facility] BUN/Creatinine Ratio 11 05/19/2024 12:33 PM EDT [facility] Sodium, Plasma 143 136 - 145 mmol/L 05/19/2024 12:33 PM EDT [facility] Potassium, Plasma 4.1 3.6 - 4.9 mmol/L 05/19/2024 12:33 PM EDT [facility] Chloride, Plasma 115(H) 97 - 107 mmol/L 05/19/2024 12:33 PM EDT [facility] CO2, Plasma 19(L) 22 - 29 mmol/L 05/19/2024 12:33 PM EDT [facility] Anion Gap 9 6 - 16 mmol/L 05/19/2024 12:33 PM EDT [facility] Total Calcium, Plasma 6.7(L) 8.9 - 10.2 mg/dL 05/19/2024 12:33 PM EDT [facility] Phosphorus, Plasma 3.0 2.5 - 4.5 mg/dL 05/19/2024 12:33 PM EDT [facility] Albumin, Plasma 2.0(L) 3.5 - 5.2 g/dL 05/19/2024 12:33 PM EDT [facility] eGFRcr 75.1 mL/min/1.7 3m*2 05/19/2024 12:33 PM EDT [facility] Comment:Reported eGFRcr in m L/min/1.73m2 is based the CKD-EPI 2020 equation that does not use a race coefficient. Blood Venous blood specimen / Unknown Venipuncture / Unknown 05/19/2024 11:42 AM EDT 05/19/2024 12:00 PM EDT us Marybel Suarez APRN LAB BLOOD ORDERABLES Fin al Result [facility] [address] [place] [address] * XR Chest 1 View (05/19/2024 4:43 [...] APRN IMG XR PROCEDURES Final Result * [place] [facility], ADDL 30 MIN (05/19/2024 2:30 [...] - 2.4 mg/dL 05/19/2024 2:45 AM EDT [facility] Blood Venous blood specimen / Unknown Venipuncture / Unknown 05/19/2024 2:02 AM EDT 05/19/2024 2:12 AM EDT Marybel Suarez APRN LAB BLOOD ORDERABLES Fin al Result [facility] [address] [place] [address] * (ABNORMAL) Comprehensive metabolic panel (05/19/2024 2:02 AM EDT) Glucose, Plasma 140(H) 74 - 99 mg/dL 05/19/2024 2:45 AM EDT [facility] BUN, Plasma 9 7 - 21 mg/dL 05/19/2024 2:45 AM EDT [facility] Creatinine, Plasma 0.80 0.60 - 1.10 mg/dL 05/19/2024 2:45 AM EDT [facility] BUN/Creatinine Ratio 11 05/19/2024 2:45 AM EDT [facility] Sodium, Plasma 142 136 - 145 mmol/L 05/19/2024 2:45 AM EDT [facility] Potassium, Plasma 3.6 3.6 - 4.9 mmol/L 05/19/2024 2:45 AM EDT [facility] Chloride, Plasma 115(H) 97 - 107 mmol/L 05/19/2024 2:45 AM EDT [facility] CO2, Plasma 17(L) 22 - 29 mmol/L 05/19/2024 2:45 AM EDT [facility] Anion Gap 10 6 - 16 mmol/L 05/19/2024 2:45 AM EDT [facility] Total Calcium, Plasma 6.8(L) 8.9 - 10.2 mg/dL 05/19/2024 2:45 AM EDT [facility] Total Protein 5.5(L) 6.3 - 7.9 g/dL 05/19/2024 2:45 AM EDT [facility] Albumin, Plasma 2.1(L) 3.5 - 5.2 g/dL 05/19/2024 2:45 AM EDT [facility] AST, Plasma 53(H) 10 - 35 U/L 05/19/2024 2:45 AM EDT [facility] ALT, Plasma 23 10 - 35 U/L 05/19/2024 2:45 AM EDT [facility] Alkaline Phosphatase, Plasma 111(H) 35 - 104 U/L 05/19/2024 2:45 AM EDT [facility] Total Bilirubin, Plasma 1.1 0.2 - 1.1 mg/dL 05/19/2024 2:45 AM EDT [facility] eGFRcr 87.7 mL/min/1.7 3m*2 05/19/2024 2:45 AM EDT [facility] Comment:Reported eGFRcr in m L/min/1.73m2 is based the CKD-EPI 2020 equation that does not use a race coefficient. Blood Venous blood specimen / Unknown Venipuncture / Unknown 05/19/2024 2:02 AM EDT 05/19/2024 2:12 AM EDT Marybel Suarez APRN LAB BLOOD ORDERABLES Fin al Result [facility] [address] [place] [address] * (ABNORMAL) CBC and differential (05/19/2024 2:02 AM EDT) WBC Count 14.70(H) 3.70 - 10.30 10*3/uL LAB HEMATOLOGY METHOD 05/19/2024 3:26 AM EDT [facility] RBC Count 3.16(L) 3.90 - 5.20 10*6/uL LAB HEMATOLOGY METHOD 05/19/2024 3:26 AM EDT [facility] HGB 9.2(L) 11.2 - 15.7 g/dL LAB HEMATOLOGY METHOD 05/19/2024 3:26 AM EDT [facility] HCT 27.7(L) 34.0 - 45.0 % LAB HEMATOLOGY METHOD 05/19/2024 3:26 AM EDT [facility] Platelet Count 629(H) 155 - 369 10*3/uL LAB HEMATOLOGY METHOD 05/19/2024 3:26 AM EDT [facility] MCV 88 79 - 98 fL LAB HEMATOLOGY METHOD 05/19/2024 3:26 AM EDT [facility] MCH 29.1 26.0 - 32.0 pg LAB HEMATOLOGY METHOD 05/19/2024 3:26 AM EDT [facility] MCHC 33.2 30.7 - 35.5 g/dL LAB HEMATOLOGY METHOD 05/19/2024 3:26 AM EDT [facility] RDW 16.6(H) 11.5 - 14.5 % LAB HEMATOLOGY METHOD 05/19/2024 3:26 AM EDT [facility] MPV 9.7 8.8 - 12.5 fL LAB HEMATOLOGY METHOD 05/19/2024 3:26 AM EDT [facility] nRBC 0.0 <=0.0 per 100 WBCs LAB HEMATOLOGY METHOD 05/19/2024 3:26 AM EDT [facility] Differential Type Automated LAB HEMATOLOGY METHOD 05/19/2024 3:26 AM EDT [facility] Neutrophils % 74 % LAB HEMATOLOGY METHOD 05/19/2024 3:26 AM EDT [facility] Lymphocytes % 12 % LAB HEMATOLOGY METHOD 05/19/2024 3:26 AM EDT [facility] Monocytes % 10 % LAB HEMATOLOGY METHOD 05/19/2024 3:26 AM EDT [facility] Eosinophils % 1 % LAB HEMATOLOGY METHOD 05/19/2024 3:26 AM EDT [facility] Basophils % 1 % LAB HEMATOLOGY METHOD 05/19/2024 3:26 AM EDT [facility] Immature Granulocytes % 2 % LAB HEMATOLOGY METHOD 05/19/2024 3:26 AM EDT [facility] Neutrophils Absolute 10.82(H) 1.60 - 6.10 10*3/uL LAB HEMATOLOGY METHOD 05/19/2024 3:26 AM EDT [facility] Lymphocytes Absolute 1.83 1.20 - 3.90 10*3/uL LAB HEMATOLOGY METHOD 05/19/2024 3:26 AM EDT [facility] Monocytes Absolute 1.52(H) 0.30 - 0.90 10*3/uL LAB HEMATOLOGY METHOD 05/19/2024 3:26 AM EDT [facility] Eosinophils Absolute 0.20 0.00 - 0.50 10*3/uL LAB HEMATOLOGY METHOD 05/19/2024 3:26 AM EDT [facility] Basophils Absolute 0.11(H) 0.00 - 0.10 10*3/uL LAB HEMATOLOGY METHOD 05/19/2024 3:26 AM EDT [facility] Immature Granulocytes Absolute 0.22(H) 0.00 - 0.06 10*3/uL LAB HEMATOLOGY METHOD 05/19/2024 3:26 AM EDT [facility] Blood Venous blood specimen / Unknown Venipuncture / Unknown 05/19/2024 2:02 AM EDT 05/19/2024 2:12 AM EDT [facility] - 05/19/2024 3:26 AM EDT Therapeutic decision making should be based on absolute values, rather than percentages. us Maite Austin MD LAB BLOOD ORDERABLES Final Resu lt Performing Organization Address [facility] Co de Phone Number [facility] [address] [place] [address] * (ABNORMAL) POCT glucose meter (05/19/2024 1:28 AM EDT) POCT Glucose 160(H) 74 - 99 mg/dL 05/19/2024 1:30 AM EDT [facility] Comment:Accuracy of a [...] for testing. Comment 05/19/2024 1:30 AM EDT [facility] Hot Plate [employer]wood Press Offbearer ID Lesli Gardner 05/19/2024 1:30 AM EDT [facility] Device ID [id number] 05/19/2024 1:30 AM EDT [facility] Specimen Type POC Capillary 05/19/2024 1:30 AM EDT [facility] Blood Capillary blood specimen / Unknown 05/19/2024 1:28 AM EDT 05/19/2024 1:30 AM EDT us Maite Austin MD LAB POINT OF CARE TE ST DOCKED DEVICE UNSOLICITED RESULTS Final Result Performing Organization Address [facility] de Phone Number [facility] [address] [place] [address] * POCT glucose meter (05/19/2024 1:10 AM EDT) Pathologist [facility] POCT Glucose 84 74 - 99 mg/dL [...] Comment 05/19/2024 1:12 AM EDT [facility] Hot Plate [employer]wood Press Offbearer ID [email or web address] 05/20/19 1:12 AM EDT [facility] LAB Device ID [id number] 05/19/2024 1:12 AM EDT [facility] Specimen Type POC Capillary 05/19/2024 1:12 AM EDT [facility] Blood Capillary blood specimen / Unknown 05/19/2024 1:10 AM EDT 05/19/2024 1:12 AM EDT us Maite Austin MD LAB POINT OF CARE TE ST DOCKED DEVICE UNSOLICITED RESULTS Final Result [facility] [address] [place] [address] * PICC DOUBLE LUMEN ([employer] LINK) (05/19/2024 12:50 AM EDT) Narrative Sundeep Holt RN - 05/19/2024 12:50 AM EDT Sundeep Holt RN 05/19/2024 1:26 AM Insert PICC line Performed by: Sundeep Holt RN Authorized by: Maite Austin MD [place] Protocol: Verbal consent obtained?: Yes Written consent obtained?: Yes Risks and benefits: Risks, benefits and alternatives were discussed Consent given by: Patient and power of transactional attorney (Written Consent obtained by madalyn VAT/PICC [...] Left Location (Adult): Basilic vein (Largest vein, [id number] ratio 27%) Site selection rationale: RUE PIV and right radial arterial line. 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 [facility]/PICC RN spoke with Sidney Jackson MD [...] placed on end of each lumen hub. [place] limb precaution armband placed on left wrist for PICC precautions while PICC is in place (No sticks/BP's). VAT consult completed. us Maite Austin MD IV THERAPY ORDERABLES Edited Re sult - Final * Comprehensive GI Panel by PCR (05/18/2024 11:47 PM EDT) Campylobacter PCR Result Not Detected Not Detected 05/19/2024 1:41 PM EDT [facility] Plesiomonas shigelloides PCR Result Not Detected Not Detected 05/19/2024 1:41 PM EDT [facility] Salmonella PCR Result Not Detected Not Detected 05/19/2024 1:41 PM EDT [facility] Vibrio species PCR Result Not Detected Not Detected 05/19/2024 1:41 PM EDT [facility] Vibrio cholerae PCR Result Not Detected Not Detected 05/19/2024 1:41 PM EDT [facility] Yersinia enterocolitica PCR Result Not Detected Not Detected 05/19/2024 1:41 PM EDT [facility] Enteroaggregative E. coli (EAEC) PCR Result Not Detected Not Detected 05/19/2024 1:41 PM EDT [facility] Enteropathogenic E. coli (EPEC) PCR Result Not Detected Not Detected 05/19/2024 1:41 PM EDT [facility] Enterotoxigenic E. coli (ETEC) lt/st PCR Result Not Detected Not Detected 05/19/2024 1:41 PM EDT [facility] Shiga-like Toxin-Producing E.coli (STEC) stx1/stx2 PCR Resu Not Detected Not Detected 05/19/2024 1:41 PM EDT [facility] E coli 0157 PCR Result Not Detected Not Detected 05/19/2024 1:41 PM EDT [facility] Shigella/Enteroinvas alexsandra E. coli (EIEC) PCR Result Not Detected Not Detected 05/19/2024 1:41 PM EDT [facility] Cryptosporidium PCR Result Not Detected Not Detected 05/19/2024 1:41 PM EDT [facility] Cyclospora cayetanensis PCR Result Not Detected Not Detected 05/19/2024 1:41 PM EDT [facility] Entamoeba histolytica PCR Result Not Detected Not Detected 05/19/2024 1:41 PM EDT [facility] Giardia duodenalis (aka Giardia lamblia) PCR Result Not Detected Not Detected 05/19/2024 1:41 PM EDT [facility] Adenovirus F 40/41 PCR Result Not Detected Not Detected 05/19/2024 1:41 PM EDT [facility] Astrovirus PCR Result Not Detected Not Detected 05/19/2024 1:41 PM EDT [facility] Norovirus GI/GII PCR Result Not Detected Not Detected 05/19/2024 1:41 PM EDT [facility] Rotavirus A PCR Result Not Detected Not Detected 05/19/2024 1:41 PM EDT [facility] Sapovirus PCR Result Not Detected Not Detected 05/19/2024 1:41 PM EDT [facility] Stool Rectum structure / Unknown Non-blood Collection / Unknown 05/18/2024 11:47 PM EDT 05/19/2024 2:07 AM EDT Narrative [facility] - 05/19/2024 1:41 PM EDT This [...] indicated. Marybel Suarez APRN LAB MICROBIOLOGY - GENER AL ORDERABLES Final Result [facility] [address] [place] [address] * Clostridiodes (Clostridium) difficile PCR (05/18/2024 11:47 PM EDT) C difficile PCR toxin B gene DNA Result Not Detected Not Detected 05/19/2024 7:36 AM EDT [facility] Stool Rectum structure / Unknown Non-blood Collection / Unknown 05/18/2024 11:47 PM EDT 05/19/2024 2:07 AM EDT Narrative [facility] - 05/19/2024 7:36 AM EDT This [...] MICROBIOLOGY - GENER AL ORDERABLES Final Result [facility] [address] [place] [address] * POCT glucose meter (05/18/2024 11:21 PM EDT) Pathologist [facility] POCT Glucose 97 74 - 99 mg/dL [...] Comment 05/18/2024 11:23 PM EDT [facility] Hot [employer] Offbearer ID Lesli Gardner 05/18/2024 11:23 PM EDT [facility] Device ID [id number] 05/18/2024 11:23 PM EDT [facility] Specimen Type POC Capillary 05/18/2024 11:23 PM EDT [facility] Blood Capillary blood specimen / Unknown 05/18/2024 11:21 PM EDT 05/18/2024 11:23 PM EDT us Maite Austin MD LAB POINT OF CARE TE ST DOCKED DEVICE UNSOLICITED RESULTS Final Result Performing Organization Address City/[facility]/ZIP Co de Phone Number [facility] [address] [place] [address] * (ABNORMAL) POCT glucose meter (05/18/2024 5:55 PM EDT) Pathologist [facility] POCT Glucose 114(H) 74 - 99 mg/dL [...] Comment 05/18/2024 5:57 PM EDT [facility] [employer] Offbearer ID Theresa Hairston 5:57 PM EDT [facility] LAB Device ID [id number] 05/18/2024 5:57 PM EDT [facility] Specimen Type POC Arterial 05/18/2024 5:57 PM EDT [facility] Blood Arterial blood specimen / Unknown 05/18/2024 5:55 PM EDT 05/18/2024 5:57 PM EDT us Maite Austin MD LAB POINT OF CARE TE ST DOCKED DEVICE UNSOLICITED RESULTS Final Result Performing Organization Address City/State/[facility] Co de Phone Number [facility]ARE LAB [address] [place] [address] * [place] CRITICAL CARE, E/M 30-74 MINUTES (05/18/2024 2:28 [...] Comment 05/18/2024 2:07 PM EDT [facility] [employer] Offbearer ID Theresa Hairston 2:07 PM EDT [facility] LAB Device ID [id number] 05/18/2024 2:07 PM EDT [facility] Specimen Type POC Arterial 05/18/2024 2:07 PM EDT [facility] Blood Arterial blood specimen / Unknown 05/18/2024 2:06 PM EDT 05/18/2024 2:07 PM EDT us Maite Austin MD LAB POINT OF CARE TE ST DOCKED DEVICE UNSOLICITED RESULTS Final Result Performing Organization Address City/State/[facility] Co de Phone Number [facility]ARE LAB [address] [place], [place] [id number] * [place] Upper GI (05/18/2024 11:25 AM EDT) Anatomical [...] 05/18/2024 9:30 AM EDT [facility] Hot [employer] Offbearer ID Flo Hairstoni 9:30 AM EDT [facility] Device ID [id number] 05/18/2024 9:30 AM EDT [facility] Specimen Type POC Arterial 05/18/2024 9:30 AM EDT [facility] Blood Arterial blood specimen / Unknown 05/18/2024 9:29 AM EDT 05/18/2024 9:30 AM EDT Maite Austin MD LAB POINT OF CARE TE ST DOCKED DEVICE UNSOLICITED RESULTS Final Result [facility] [address] [place] [address] * Magnesium (05/18/2024 4:00 AM EDT) Magnesium, Plasma 2.3 1.9 - 2.4 mg/dL 05/18/2024 7:11 AM EDT [facility] Blood Arterial blood specimen / Unknown Venipuncture / Unknown 05/18/2024 4:00 AM EDT 05/18/2024 4:31 AM EDT Maite Austin MD LAB BLOOD ORDERABLES Final Resu lt Performing Organization Address [facility] Co de Phone Number [facility] [address] [place] [address] * Phosphorus (05/18/2024 4:00 AM EDT) Phosphorus, Plasma 3.0 2.5 - 4.5 mg/dL 05/18/2024 7:11 AM EDT [facility] Blood Arterial blood specimen / Unknown Venipuncture / Unknown 05/18/2024 4:00 AM EDT 05/18/2024 4:31 AM EDT us Maite Austin MD LAB BLOOD ORDERABLES Final Resu lt Performing Organization Address City/[facility] Co de Phone Number [facility] [address] [place] [address] * (ABNORMAL) Hepatic function panel (05/18/2024 4:00 AM EDT) Conjugated Bilirubin, Plasma 0.6(H) <=0.3 mg/dL 05/18/2024 5:04 AM EDT [facility] Alkaline Phosphatase, Plasma 113(H) 35 - 104 U/L 05/18/2024 5:04 AM EDT [facility] Total Bilirubin, Plasma 1.1 0.2 - 1.1 mg/dL 05/18/2024 5:04 AM EDT [facility] Albumin, Plasma 2.1(L) 3.5 - 5.2 g/dL 05/18/2024 5:04 AM EDT [facility] Total Protein 5.5(L) 6.3 - 7.9 g/dL 05/18/2024 5:04 AM EDT [facility] ALT, Plasma 24 10 - 35 U/L 05/18/2024 5:04 AM EDT [facility] AST, Plasma 53(H) 10 - 35 U/L 05/18/2024 5:04 AM EDT [facility] Blood Arterial blood specimen / Unknown Venipuncture / Unknown 05/18/2024 4:00 AM EDT 05/18/2024 4:31 AM EDT Edson Mcclure DO LAB BLOOD ORDERABLES Final R esult [facility] [address] [place] [address] * (ABNORMAL) GGT (05/18/2024 4:00 AM EDT) GGT, Plasma 105(H) 5 - 36 U/L 05/18/2024 5:04 AM EDT [facility] Blood Arterial blood specimen / Unknown Venipuncture / Unknown 05/18/2024 4:00 AM EDT 05/18/2024 4:31 AM EDT Edson Mcclure DO LAB BLOOD ORDERABLES Final R esult Performing Organization Address City/[facility]/ZIP Co de Phone Number [facility] [address] [place] [address] * (ABNORMAL) Amylase, Plasma (05/18/2024 4:00 AM EDT) Amylase 129(H) 27 - 114 U/L 05/18/2024 5:04 AM EDT [facility] Blood Arterial blood specimen / Unknown Venipuncture / Unknown 05/18/2024 4:00 AM EDT 05/18/2024 4:31 AM EDT Edson Mcclure DO LAB BLOOD ORDERABLES Final R esult Performing Organization Address City/[facility]/ZIP Co de Phone Number [facility] [address] [place] [address] * (ABNORMAL) Lipase (05/18/2024 4:00 AM EDT) Lipase, Plasma 92(H) 19 - 63 U/L 05/18/2024 5:04 AM EDT [facility] Blood Arterial blood specimen / Unknown Venipuncture / Unknown 05/18/2024 4:00 AM EDT 05/18/2024 4:31 AM EDT Edson Mcclure DO LAB BLOOD ORDERABLES Final R esult [facility] [address] [place] [address] * (ABNORMAL) Blood gas panel, arterial (05/18/2024 4:00 AM EDT) pH, Arterial 7.45 7.35 - 7.45 LAB HEMATOLOGY METHOD 05/18/2024 4:13 AM EDT [facility] pCO2, Arterial 28(L) 35 - 48 mmHg LAB HEMATOLOGY METHOD 05/18/2024 4:13 AM EDT [facility] pO2, Arterial 72(L) 83 - 108 mmHg LAB HEMATOLOGY METHOD 05/18/2024 4:13 AM EDT [facility] SO2, Measured, Arterial 95 94 - 98 % LAB HEMATOLOGY METHOD 05/18/2024 4:13 AM EDT [facility] Base Excess, Arterial -3.6(L) -2.0 - 3.0 mmol/L LAB HEMATOLOGY METHOD 05/18/2024 4:13 AM EDT [facility] Bicarbonate, Calculated, Arterial 20(L) 22 - 26 mmol/L LAB HEMATOLOGY METHOD 05/18/2024 4:13 AM EDT [facility] Hematocrit, Whole Blood 30.1(L) 34.0 - 45.0 % LAB HEMATOLOGY METHOD 05/18/2024 4:13 AM EDT [facility] Sodium, Whole Blood 142 136 - 145 mmol/L LAB HEMATOLOGY METHOD 05/18/2024 4:13 AM EDT [facility] Potassium, Whole Blood 3.7 3.6 - 4.9 mmol/L LAB HEMATOLOGY METHOD 05/18/2024 4:13 AM EDT [facility] Chloride, Whole Blood 116(H) 97 - 107 mmol/L LAB HEMATOLOGY METHOD 05/18/2024 4:13 AM EDT [facility] Glucose, Whole Blood 110(H) 74 - 99 mg/dL LAB HEMATOLOGY METHOD 05/18/2024 4:13 AM EDT [facility] Ionized Calcium, Whole Blood 4.2(L) 4.6 - 5.1 mg/dL LAB HEMATOLOGY METHOD 05/18/2024 4:13 AM EDT [facility] Lactate, Arterial, Whole Blood 1.3 0.5 - 1.6 mmol/L LAB HEMATOLOGY METHOD 05/18/2024 4:13 AM EDT [facility] Blood Arterial blood specimen / Unknown Arterial Puncture / Unknown 05/18/2024 4:00 AM EDT 05/18/2024 4:12 AM EDT us Marybel Suarez APRN LAB BLOOD ORDERABLES Fin al Result [facility] [address] [place] [address] * (ABNORMAL) POCT glucose meter (05/18/2024 3:59 [...] Comment 05/18/2024 4:01 AM EDT [facility] Hot Plate [employer] Offbearer ID Linda Amor 05/19/19 25 4:01 AM EDT [facility]ARE LAB Device ID [id number] 05/18/2024 4:01 AM EDT [facility]ALTH[facility]ARE LAB Specimen Type POC Arterial 05/18/2024 4:01 AM EDT [facility] Blood Arterial blood specimen / Unknown 05/18/2024 3:59 AM EDT 05/18/2024 4:01 AM EDT us Maite Austin MD LAB POINT OF CARE TE ST DOCKED DEVICE UNSOLICITED RESULTS Final Result [facility] [address] [place] [address] * XR Chest 1 View (05/18/2024 2:30 [...] MD on 05/18/2024 2:52 AM Marybel Suarez APRN IMG CT PROCEDURES Final Result * CT Abdomen [...] Total DLP (Dose-Length Product): 1602.32 mGy.cm (accession [id number]), 1602.32 mGy.cm (accession [id number]). Please note: The reported value represents the [...] Total DLP (Dose-Length Product): 1602.32 mGy.cm (accession [id number]),1602.32 mGy.cm (accession [id number]). Please note: The reported valuerepresents the total [...] MD on 05/18/2024 3:15 AM Marybel Suarez [facility] IM CT PROCEDURES Final Result * CT [...] Total DLP (Dose-Length Product): 1602.32 mGy.cm (accession [id number]), 1602.32 mGy.cm (accession [id number]). Please note: The reported value represents the [...] Total DLP (Dose-Length Product): 1602.32 mGy.cm (accession [id number]),1602.32 mGy.cm (accession [id number]). Please note: The reported valuerepresents the total [...] - 2.4 mg/dL 05/18/2024 12:55 AM EDT [facility] Blood Arterial blood specimen / Unknown Venipuncture / Unknown 05/18/2024 12:20 AM EDT 05/18/2024 12:25 AM EDT Marybel Suarez APRN LAB BLOOD ORDERABLES Fin al Result [facility] [address] [place] [address] * (ABNORMAL) Comprehensive metabolic panel (05/18/2024 12:20 AM EDT) Glucose, Plasma 112(H) 74 - 99 mg/dL 05/18/2024 12:55 AM EDT [facility] BUN, Plasma 13 7 - 21 mg/dL 05/18/2024 12:55 AM EDT [facility] Creatinine, Plasma 0.77 0.60 - 1.10 mg/dL 05/18/2024 12:55 AM EDT [facility] BUN/Creatinine Ratio 17 05/18/2024 12:55 AM EDT [facility] Sodium, Plasma 143 136 - 145 mmol/L 05/18/2024 12:55 AM EDT [facility] Potassium, Plasma 4.2 3.6 - 4.9 mmol/L 05/18/2024 12:55 AM EDT [facility] Chloride, Plasma 115(H) 97 - 107 mmol/L 05/18/2024 12:55 AM EDT [facility] CO2, Plasma 19(L) 22 - 29 mmol/L 05/18/2024 12:55 AM EDT [facility] Anion Gap 9 6 - 16 mmol/L 05/18/2024 12:55 AM EDT [facility] Total Calcium, Plasma 7.5(L) 8.9 - 10.2 mg/dL 05/18/2024 12:55 AM EDT [facility] Total Protein 5.6(L) 6.3 - 7.9 g/dL 05/18/2024 12:55 AM EDT [facility] Albumin, Plasma 2.1(L) 3.5 - 5.2 g/dL 05/18/2024 12:55 AM EDT [facility] AST, Plasma 61(H) 10 - 35 U/L 05/18/2024 12:55 AM EDT [facility] ALT, Plasma 27 10 - 35 U/L 05/18/2024 12:55 AM EDT [facility] Alkaline Phosphatase, Plasma 115(H) 35 - 104 U/L 05/18/2024 12:55 AM EDT [facility] Total Bilirubin, Plasma 1.1 0.2 - 1.1 mg/dL 05/18/2024 12:55 AM EDT [facility] eGFRcr 91.8 mL/min/1.7 3m*2 05/18/2024 12:55 AM EDT [facility] Comment:Reported eGFRcr in m L/min/1.73m2 is based the CKD-EPI 2020 equation that does not use a race coefficient. Blood Arterial blood specimen / Unknown Venipuncture / Unknown 05/18/2024 12:20 AM EDT 05/18/2024 12:25 AM EDT Marybel Suarez APRN LAB BLOOD ORDERABLES Fin al Result [facility] [address] [place] [address] * (ABNORMAL) CBC and differential (05/18/2024 12:20 AM EDT) WBC Count 14.70(H) 3.70 - 10.30 10*3/uL LAB HEMATOLOGY METHOD 05/18/2024 1:36 AM EDT [facility] RBC Count 3.31(L) 3.90 - 5.20 10*6/uL LAB HEMATOLOGY METHOD 05/18/2024 1:36 AM EDT [facility] HGB 9.6(L) 11.2 - 15.7 g/dL LAB HEMATOLOGY METHOD 05/18/2024 1:36 AM EDT [facility] HCT 29.0(L) 34.0 - 45.0 % LAB HEMATOLOGY METHOD 05/18/2024 1:36 AM EDT [facility] Platelet Count 590(H) 155 - 369 10*3/uL LAB HEMATOLOGY METHOD 05/18/2024 1:36 AM EDT [facility] MCV 88 79 - 98 fL LAB HEMATOLOGY METHOD 05/18/2024 1:36 AM EDT [facility] MCH 29.0 26.0 - 32.0 pg LAB HEMATOLOGY METHOD 05/18/2024 1:36 AM EDT [facility] MCHC 33.1 30.7 - 35.5 g/dL LAB HEMATOLOGY METHOD 05/18/2024 1:36 AM EDT [facility] RDW 17.0(H) 11.5 - 14.5 % LAB HEMATOLOGY METHOD 05/18/2024 1:36 AM EDT [facility] MPV 9.8 8.8 - 12.5 fL LAB HEMATOLOGY METHOD 05/18/2024 1:36 AM EDT [facility] nRBC 0.1(H) <=0.0 per 100 WBCs LAB HEMATOLOGY METHOD 05/18/2024 1:36 AM EDT [facility] Differential Type Automated LAB HEMATOLOGY METHOD 05/18/2024 1:36 AM EDT [facility] Neutrophils % 77 % LAB HEMATOLOGY METHOD 05/18/2024 1:36 AM EDT [facility] Lymphocytes % 11 % LAB HEMATOLOGY METHOD 05/18/2024 1:36 AM EDT [facility] Monocytes % 8 % LAB HEMATOLOGY METHOD 05/18/2024 1:36 AM EDT [facility] Eosinophils % 1 % LAB HEMATOLOGY METHOD 05/18/2024 1:36 AM EDT [facility] Basophils % 1 % LAB HEMATOLOGY METHOD 05/18/2024 1:36 AM EDT [facility] Immature Granulocytes % 2 % LAB HEMATOLOGY METHOD 05/18/2024 1:36 AM EDT [facility] Neutrophils Absolute 11.39(H) 1.60 - 6.10 10*3/uL LAB HEMATOLOGY METHOD 05/18/2024 1:36 AM EDT [facility] Lymphocytes Absolute 1.67 1.20 - 3.90 10*3/uL LAB HEMATOLOGY METHOD 05/18/2024 1:36 AM EDT [facility] Monocytes Absolute 1.20(H) 0.30 - 0.90 10*3/uL LAB HEMATOLOGY METHOD 05/18/2024 1:36 AM EDT [facility] Eosinophils Absolute 0.09 0.00 - 0.50 10*3/uL LAB HEMATOLOGY METHOD 05/18/2024 1:36 AM EDT [facility] Basophils Absolute 0.08 0.00 - 0.10 10*3/uL LAB HEMATOLOGY METHOD 05/18/2024 1:36 AM EDT [facility] Immature Granulocytes Absolute 0.27(H) 0.00 - 0.06 10*3/uL LAB HEMATOLOGY METHOD 05/18/2024 1:36 AM EDT [facility] Blood Arterial blood specimen / Unknown Venipuncture / Unknown 05/18/2024 12:20 AM EDT 05/18/2024 12:25 AM EDT Narrative [facility] - 05/18/2024 1:36 AM EDT Therapeutic decision making should be based on absolute values, rather than percentages. us Maite Austin MD LAB BLOOD ORDERABLES Final Resu lt [facility] [address] [place] [address] * (ABNORMAL) POCT glucose meter (05/18/2024 12:19 AM EDT) POCT Glucose 109(H) 74 - 99 mg/dL 05/18/2024 12:21 AM EDT [facility] Comment:Accuracy of a glucos e result [...] Comment 05/18/2024 12:21 AM EDT [facility]ALTH[facility]ARE [facility] [employer] Offbearer ID Linda Amor 05/19/19 12:21 AM EDT HEALTHCARE LAB Device ID [id number] 05/18/2024 12:21 AM EDT [facility] Specimen Type POC Arterial 05/18/2024 12:21 AM EDT [facility] Blood Arterial blood specimen / Unknown 05/18/2024 12:19 AM EDT 05/18/2024 12:21 AM EDT Maite Austin MD LAB POINT OF CARE TE ST DOCKED DEVICE UNSOLICITED RESULTS Final Result [facility] [address] [place] [address] * Methicillin Resistant Staphylococcus aureus (MRSA) by PCR (05/17/2024 10:58 PM EDT) [facility] Methicillin Resistant Staphylococcus aureus (MRSA) by PCR Not Detected Not Detected 05/18/2024 12:44 AM EDT [facility] Swab Both anterior nares / Unknown Non-blood Collection / Unknown 05/17/2024 10:58 PM EDT 05/17/2024 11:21 PM EDT Narrative [facility] - 05/18/2024 12:44 AM EDT This [...] MICROBIOLOGY - GENER AL ORDERABLES Final Result [facility] [address] [place] [address] * POCT glucose meter (05/17/2024 7:24 PM EDT) [facility] POCT Glucose 99 74 - 99 mg/dL 05/17/2024 7:48 PM EDT [facility] Comment:Accuracy of a glucos e [...] Comment 05/17/2024 7:48 PM EDT [facility]ALTH[facility]ARE [facility] Hot [employer] Offbearer ID Linda Amor 05/18/19 7:48 PM EDT HEALTH[facility]ARE LAB Device ID [id number] 05/17/2024 7:48 PM EDT [facility] Specimen Type POC Arterial 05/17/2024 7:48 PM EDT [facility] Blood Arterial blood specimen / Unknown 05/17/2024 7:24 PM EDT 05/17/2024 7:48 PM EDT us Maite Austin MD LAB POINT OF CARE TE ST DOCKED DEVICE UNSOLICITED RESULTS Final Result [facility] [address] [place] [address] * (ABNORMAL) CBC and differential (05/17/2024 6:13 PM EDT) Pathologist [facility] WBC Count 13.62(H) 3.70 - 10.30 10*3/uL LAB HEMATOLOGY METHOD 05/17/2024 7:48 PM EDT [facility] RBC Count 3.35(L) 3.90 - 5.20 10*6/uL LAB HEMATOLOGY METHOD 05/17/2024 7:48 PM EDT [facility] HGB 9.7(L) 11.2 - 15.7 g/dL LAB HEMATOLOGY METHOD 05/17/2024 7:48 PM EDT [facility] HCT 29.7(L) 34.0 - 45.0 % LAB HEMATOLOGY METHOD 05/17/2024 7:48 PM EDT [facility] Platelet Count 607(H) 155 - 369 10*3/uL LAB HEMATOLOGY METHOD 05/17/2024 7:48 PM EDT [facility] MCV 89 79 - 98 fL LAB HEMATOLOGY METHOD 05/17/2024 7:48 PM EDT [facility] MCH 29.0 26.0 - 32.0 pg LAB HEMATOLOGY METHOD 05/17/2024 7:48 PM EDT [facility] MCHC 32.7 30.7 - 35.5 g/dL LAB HEMATOLOGY METHOD 05/17/2024 7:48 PM EDT [facility] RDW 17.2(H) 11.5 - 14.5 % LAB HEMATOLOGY METHOD 05/17/2024 7:48 PM EDT [facility] MPV 10.1 8.8 - 12.5 fL LAB HEMATOLOGY METHOD 05/17/2024 7:48 PM EDT [facility] nRBC 0.1(H) <=0.0 per 100 WBCs LAB HEMATOLOGY METHOD 05/17/2024 7:48 PM EDT [facility] Differential Type Automated LAB HEMATOLOGY METHOD 05/17/2024 7:48 PM EDT [facility] Neutrophils % 80 % LAB HEMATOLOGY METHOD 05/17/2024 7:48 PM EDT [facility] Lymphocytes % 9 % LAB HEMATOLOGY METHOD 05/17/2024 7:48 PM EDT [facility] Monocytes % 8 % LAB HEMATOLOGY METHOD 05/17/2024 7:48 PM EDT [facility] Eosinophils % 0 % LAB HEMATOLOGY METHOD 05/17/2024 7:48 PM EDT [facility] Basophils % 0 % LAB HEMATOLOGY METHOD 05/17/2024 7:48 PM EDT [facility] Immature Granulocytes % 3 % LAB HEMATOLOGY METHOD 05/17/2024 7:48 PM EDT [facility] Neutrophils Absolute 10.86(H) 1.60 - 6.10 10*3/uL LAB HEMATOLOGY METHOD 05/17/2024 7:48 PM EDT [facility] Lymphocytes Absolute 1.27 1.20 - 3.90 10*3/uL LAB HEMATOLOGY METHOD 05/17/2024 7:48 PM EDT [facility] Monocytes Absolute 1.04(H) 0.30 - 0.90 10*3/uL LAB HEMATOLOGY METHOD 05/17/2024 7:48 PM EDT [facility] Eosinophils Absolute 0.04 0.00 - 0.50 10*3/uL LAB HEMATOLOGY METHOD 05/17/2024 7:48 PM EDT [facility] Basophils Absolute 0.06 0.00 - 0.10 10*3/uL LAB HEMATOLOGY METHOD 05/17/2024 7:48 PM EDT [facility] Immature Granulocytes Absolute 0.35(H) 0.00 - 0.06 10*3/uL LAB HEMATOLOGY METHOD 05/17/2024 7:48 PM EDT [facility] Blood Venous blood specimen / Unknown Venipuncture / Unknown 05/17/2024 6:13 PM EDT 05/17/2024 6:32 PM EDT Narrative [facility] - 05/17/2024 7:48 PM EDT Therapeutic decision making should be based on absolute values, rather than percentages. us Maite Austin MD LAB BLOOD ORDERABLES Final Resu lt Performing Organization Address City/[facility]/ZIP Co de Phone Number [facility] [address] [place] [address] * AFB Blood Culture (05/17/2024 6:13 PM EDT) AFB Culture No Mycobacterial Growth at 6 Weeks 07/06/2024 5:16 PM EDT [facility] Blood Venous blood specimen / Unknown Venipuncture / Unknown 05/17/2024 6:13 PM EDT 05/17/2024 6:32 PM EDT us Lora Llanes APRN LAB MICROBIOLOGY - GENERAL ORDERABLES Final Result Performing Organization Address [facility] Co de Phone Number [facility] [address] [place] [address] * Fungal Blood Culture (05/17/2024 6:13 PM EDT) Culture No Fungal Growth at 6 Weeks 07/07/2024 11:43 AM EDT [facility] Blood Venous blood specimen / Unknown Venipuncture / Unknown 05/17/2024 6:13 PM EDT 05/17/2024 6:32 PM EDT us Lora Llanes APRN LAB MICROBIOLOGY - GENERAL ORDERABLES Final Result Performing Organization Address City/[facility]/ZIP Co de Phone Number [facility] [address] [place] [address] * Beta Glucan (Fungitel), Serum (05/17/2024 6:13 PM EDT) [facility] Beta Glucan (Fungitell) 43 <80 pg/mL 05/19/2024 4:58 PM EDT [facility] ([facility]AMALI[facility]) Comment: Interpretation: The Fungitell assay does not detect certain fungal species such as the genus Cryptococcus (Rica et al. 1991) which produces very low levels of (1-3)-Eonu-N-Xztmxh. The assay also does not detect the Zygomycetes such as Absidia, Mucor and Rhizopus (Stacey et al. 1994) which are not known to produce (1-3)-Pfap-T-Bpqggk. In addition, the yeast phase of Blastomyces dermatitidis produces little (1-3)-[id number]-[id number] and may not be detected by the [...] characteristics for these modifications were determined by [facility]. If sample result is greater than 500 pg/mL, physician may order a titer of the sample. Please contact [facility] if you would like to order a retest of this sample to obtain an actual value. Samples are held for 1 week after initial testing date. Testing Performed at: [facility] [address] [place] [address], [facility] [address] [place] [address] [employer] Operator: Clayton Mata, PhD [place] [employer] CLIA # [id number] FLAG Interpretation: A = Abnormal, H = High, L = Low Blood Venous blood specimen / Unknown Venipuncture / Unknown 05/17/2024 6:13 PM EDT 05/17/2024 6:27 PM EDT Narrative KWABENA GALAVIZ) - 05/19/2024 4:58 PM EDT Release to patient in [facility]->Immediate us Lora Seymour Shraddha [employer] LAB BLOOD ORDERABLES Final Result KWABENA GALAVIZ) * [facility], E/M 30-74 MINUTES (05/17/2024 4:40 [...] with the findings and plan as documented. Dieudonne Cramer MD IN CLINIC/BEDSIDE ORDERABLES Final Result * (ABNORMAL) Blood gas panel, arterial (05/17/2024 3:14 PM EDT) pH, Arterial 7.43 7.35 - 7.45 LAB HEMATOLOGY METHOD 05/17/2024 3:27 PM EDT [facility] pCO2, Arterial 28(L) 35 - 48 mmHg LAB HEMATOLOGY METHOD 05/17/2024 3:27 PM EDT [facility] pO2, Arterial 114(H) 83 - 108 mmHg LAB HEMATOLOGY METHOD 05/17/2024 3:27 PM EDT [facility] SO2, Measured, Arterial 98 94 - 98 % LAB HEMATOLOGY METHOD 05/17/2024 3:27 PM EDT [facility] Base Excess, Arterial -5.0(L) -2.0 - 3.0 mmol/L LAB HEMATOLOGY METHOD 05/17/2024 3:27 PM EDT [facility] Bicarbonate, Calculated, Arterial 18(L) 22 - 26 mmol/L LAB HEMATOLOGY METHOD 05/17/2024 3:27 PM EDT [facility] Hematocrit, Whole Blood 31.9(L) 34.0 - 45.0 % LAB HEMATOLOGY METHOD 05/17/2024 3:27 PM EDT [facility] Sodium, Whole Blood 146(H) 136 - 145 mmol/L LAB HEMATOLOGY METHOD 05/17/2024 3:27 PM EDT [facility] Potassium, Whole Blood 3.9 3.6 - 4.9 mmol/L LAB HEMATOLOGY METHOD 05/17/2024 3:27 PM EDT [facility] Chloride, Whole Blood 118(H) 97 - 107 mmol/L LAB HEMATOLOGY METHOD 05/17/2024 3:27 PM EDT [facility] Glucose, Whole Blood 67(L) 74 - 99 mg/dL LAB HEMATOLOGY METHOD 05/17/2024 3:27 PM EDT [facility] Ionized Calcium, Whole Blood 4.2(L) 4.6 - 5.1 mg/dL LAB HEMATOLOGY METHOD 05/17/2024 3:27 PM EDT [facility] Lactate, Arterial, Whole Blood 1.3 0.5 - 1.6 mmol/L LAB HEMATOLOGY METHOD 05/17/2024 3:27 PM EDT [facility] Blood Arterial blood specimen / Unknown Arterial Puncture / Unknown 05/17/2024 3:14 PM EDT 05/17/2024 3:26 PM EDT us Maite Austin MD LAB BLOOD ORDERABLES Final Resu lt [facility] [address] [place] [address] * (ABNORMAL) Procalcitonin (05/17/2024 3:08 PM EDT) Procalcitonin, Plasma 0.46(H) <0.09 ng/mL 05/17/2024 7:40 PM EDT [facility] Blood Venous blood specimen / Unknown Venipuncture / Unknown 05/17/2024 3:08 PM EDT 05/17/2024 3:37 PM EDT Narrative [facility] - 05/17/2024 7:40 PM EDT Procalcitonin [...] predict 28 day mortality risk. Please consult [email or web address] for more information. Test performed at [facility], [facility]. us Marybel Suarez APRN LAB BLOOD ORDERABLES Fin al Result [facility] [address] [place] [address] * Phosphorus (05/17/2024 3:08 PM EDT) Phosphorus, Plasma 3.5 2.5 - 4.5 mg/dL 05/17/2024 4:07 PM EDT [facility] Blood Venous blood specimen / Unknown Venipuncture / Unknown 05/17/2024 3:08 PM EDT 05/17/2024 3:37 PM EDT us Maite Austin MD LAB BLOOD ORDERABLES Final Resu lt [facility] [address] [place] [address] * (ABNORMAL) Basic metabolic panel (05/17/2024 3:08 PM EDT) Glucose, Plasma 68(L) 74 - 99 mg/dL 05/17/2024 4:07 PM EDT [facility] BUN, Plasma 14 7 - 21 mg/dL 05/17/2024 4:07 PM EDT [facility] Creatinine, Plasma 0.75 0.60 - 1.10 mg/dL 05/17/2024 4:07 PM EDT [facility] BUN/Creatinine Ratio 19 05/17/2024 4:07 PM EDT [facility] Sodium, Plasma 146(H) 136 - 145 mmol/L 05/17/2024 4:07 PM EDT [facility] Potassium, Plasma 4.1 3.6 - 4.9 mmol/L 05/17/2024 4:07 PM EDT [facility] Chloride, Plasma 115(H) 97 - 107 mmol/L 05/17/2024 4:07 PM EDT [facility] CO2, Plasma 17(L) 22 - 29 mmol/L 05/17/2024 4:07 PM EDT [facility] Anion Gap 14 6 - 16 mmol/L 05/17/2024 4:07 PM EDT [facility] Total Calcium, Plasma 7.4(L) 8.9 - 10.2 mg/dL 05/17/2024 4:07 PM EDT [facility] eGFRcr 94.7 mL/min/1.7 3m*2 05/17/2024 4:07 PM EDT [facility] Comment:Reported eGFRcr in m L/min/1.73m2 is based the CKD-EPI 2020 equation that does not use a race coefficient. Blood Venous blood specimen / Unknown Venipuncture / Unknown 05/17/2024 3:08 PM EDT 05/17/2024 3:37 PM EDT us Maite Austin MD LAB BLOOD ORDERABLES Final Resu lt [facility] [address] [place] [address] * (ABNORMAL) TEG Global Hemostasis with Heparinase (05/17/2024 3:08 PM EDT) R 8.7 4.6 - 9.1 min 05/17/2024 3:56 PM EDT [facility] R, Heparinase 7.2 4.3 - 8.3 min 05/17/2024 3:56 PM EDT [facility] K 2.0 0.8 - 2.1 min 05/17/2024 3:56 PM EDT [facility] Angle 72.5 63.0 - 78.0 degrees 05/17/2024 3:56 PM EDT [facility] MA 72.2(H) 52.0 - 69.0 mm 05/17/2024 3:56 PM EDT [facility] MA, Rapid 74.4(H) 52.0 - 70.0 mm 05/17/2024 3:56 PM EDT [facility] MA, Fibrinogen 48.4(H) 15.0 - 32.0 mm 05/17/2024 3:56 PM EDT [facility] FLEV 883.2(H) 278.0 - 581.0 mg/dl 05/17/2024 3:56 PM EDT [facility] Blood Venous blood specimen / Unknown Venipuncture / Unknown 05/17/2024 3:08 PM EDT 05/17/2024 3:26 PM EDT us Maite Austin MD LAB BLOOD ORDERABLES Final Resu lt [facility] [address] [place] [address] * Anti Xa Level Unfractionated Heparin (05/17/2024 3:08 PM EDT) Anti Xa Level Unfractionated Heparin <0.11 <1.00 IU/mL LAB COAGULATION METHOD 05/17/2024 4:06 PM EDT [facility] Blood Venous blood specimen / Unknown Venipuncture / Unknown 05/17/2024 3:08 PM EDT 05/17/2024 3:37 PM EDT Narrative [facility] - 05/17/2024 4:06 PM EDT Therapeutic Range: UFH Full Dose and ACS/GA protocols*: 0.30 - 0.70 IU/mL UFH Low Dose protocol*: 0.25 - 0.50 IU/mL UFH prophylaxis: Not established Maite Austin MD LAB BLOOD ORDERABLES Final Resu lt Performing Organization Address [facility]/ZIP Co de Phone Number [facility] [address] [place] [address] * (ABNORMAL) Protime-INR (05/17/2024 3:08 PM EDT) Prothrombin Time 20.2(H) 12.0 - 14.3 sec LAB COAGULATION METHOD 05/17/2024 4:06 PM EDT [facility] INR 1.7(H) 0.9 - 1.1 LAB COAGULATION METHOD 05/17/2024 4:06 PM EDT [facility] Blood Venous blood specimen / Unknown Venipuncture / Unknown 05/17/2024 3:08 PM EDT 05/17/2024 3:37 PM EDT Narrative [facility] - 05/17/2024 4:06 PM EDT OPTIMAL INR RANGES FOR PATIENT ON ORAL ANTICOAGULANT THERAPY Prevention of venous thromboembolism INR 2.0 to 3.0 In patients with heart disease: Atrial fibrillation INR 2.0 to 3.0 Valvular heart disease INR 2.0 to 3.0 Tissue heart valves INR 2.0 to 3.0 Mechanical prosthetic valves INR 2.5 to 3.5 Prevention of recurrent GA INR 2.5 to 3.5 Maite Austin MD LAB BLOOD ORDERABLES Final Resu lt Performing Organization Address City/[facility]/[place] [address] * (ABNORMAL) APTT (05/17/2024 3:08 PM EDT) aPTT 41(H) 25 - 35 sec LAB COAGULATION METHOD 05/17/2024 4:06 PM EDT [facility] Blood Venous blood specimen / Unknown Venipuncture / Unknown 05/17/2024 3:08 PM EDT 05/17/2024 3:37 PM EDT Maite Austin MD LAB BLOOD ORDERABLES Final Resu lt [facility] [address] [place] [address] * (ABNORMAL) CBC W/O Differential (05/17/2024 3:08 PM EDT) WBC Count 13.08(H) 3.70 - 10.30 10*3/uL LAB HEMATOLOGY METHOD 05/17/2024 4:09 PM EDT [facility] RBC Count 3.56(L) 3.90 - 5.20 10*6/uL LAB HEMATOLOGY METHOD 05/17/2024 4:09 PM EDT [facility] HGB 10.3(L) 11.2 - 15.7 g/dL LAB HEMATOLOGY METHOD 05/17/2024 4:09 PM EDT [facility] HCT 31.9(L) 34.0 - 45.0 % LAB HEMATOLOGY METHOD 05/17/2024 4:09 PM EDT [facility] Platelet Count 615(H) 155 - 369 10*3/uL LAB HEMATOLOGY METHOD 05/17/2024 4:09 PM EDT [facility] MCV 90 79 - 98 fL LAB HEMATOLOGY METHOD 05/17/2024 4:09 PM EDT [facility] MCH 28.9 26.0 - 32.0 pg LAB HEMATOLOGY METHOD 05/17/2024 4:09 PM EDT [facility] MCHC 32.3 30.7 - 35.5 g/dL LAB HEMATOLOGY METHOD 05/17/2024 4:09 PM EDT [facility] RDW 17.1(H) 11.5 - 14.5 % LAB HEMATOLOGY METHOD 05/17/2024 4:09 PM EDT [facility] MPV 10.3 8.8 - 12.5 fL LAB HEMATOLOGY METHOD 05/17/2024 4:09 PM EDT [facility] nRBC 0.2(H) <=0.0 per 100 WBCs LAB HEMATOLOGY METHOD 05/17/2024 4:09 PM EDT [facility] Blood Venous blood specimen / Unknown Venipuncture / Unknown 05/17/2024 3:08 PM EDT 05/17/2024 4:00 PM EDT us Maite Austin MD LAB BLOOD ORDERABLES Final Resu lt Performing Organization Address City/[facility]/ZIP Co de Phone Number [facility] [address] [place] [address] * (ABNORMAL) Magnesium (05/17/2024 3:08 PM EDT) Pathologist [facility] Magnesium, Plasma 1.8(L) 1.9 - 2.4 mg/dL 05/17/2024 4:07 PM EDT [facility] Blood Venous blood specimen / Unknown Venipuncture / Unknown 05/17/2024 3:08 PM EDT 05/17/2024 3:37 PM EDT us Trinity Yousif APRN LAB BLOOD ORDERABLES Final Res ult Performing Organization Address [facility] Co de Phone Number [facility] [address] [place] [address] * Influenza A,B & Respiratory Syncytial Virus by PCR (05/17/2024 3:08 PM EDT) [facility] Influenza A Virus PCR Result Not Detected Not Detected 05/18/2024 7:52 AM EDT [facility] Influenza B Virus PCR Result Not Detected Not Detected 05/18/2024 7:52 AM EDT [facility] Respiratory Syncytial Virus (RSV) PCR Result Not Detected Not Detected 05/18/2024 7:52 AM EDT [facility] Swab Nasopharyngeal structure / Unknown Non-blood Collection / Unknown 05/17/2024 3:08 PM EDT 05/17/2024 3:25 PM EDT us Dulce Alamo APRN LAB MICROBIOLOGY - GENERAL O RDERABLES Final Result Performing Organization Address [facility] Co de Phone Number [facility] [address] [place] [address] * (ABNORMAL) Urinalysis with reflex microscopic (Culture NOT Included) (05/17/2024 3:07 PM EDT) [facility] Color, Urine Dark Yellow LAB URINALYSIS - AUTOMATED METHOD 05/17/2024 4:19 PM EDT [facility] Clarity, Urine Clear LAB URINALYSIS - AUTOMATED METHOD 05/17/2024 4:19 PM EDT [facility] Spec [place], Urine 1.022 1.005 - 1.030 LAB URINALYSIS - AUTOMATED METHOD 05/17/2024 4:19 PM EDT [facility] pH, Urine 5.5 5.0 - 8.0 LAB URINALYSIS - AUTOMATED METHOD 05/17/2024 4:19 PM EDT [facility] Protein, Urine 30(A) Negative mg/dL LAB URINALYSIS - AUTOMATED METHOD 05/17/2024 4:19 PM EDT [facility] Glucose, Urine Negative Negative mg/dL LAB URINALYSIS - AUTOMATED METHOD 05/17/2024 4:19 PM EDT [facility] Ketones, Urine 40(A) Negative mg/dL LAB URINALYSIS - AUTOMATED METHOD 05/17/2024 4:19 PM EDT [facility] Blood, Urine Negative Negative LAB URINALYSIS - AUTOMATED METHOD 05/17/2024 4:19 PM EDT [facility] Bilirubin, Urine Negative Negative LAB URINALYSIS - AUTOMATED METHOD 05/17/2024 4:19 PM EDT [facility] Urobilinogen, Urine 1.0 0.2 to 1.0 mg/dL LAB URINALYSIS - AUTOMATED METHOD 05/17/2024 4:19 PM EDT [facility] Leukocytes, Urine Negative Negative LAB URINALYSIS - AUTOMATED METHOD 05/17/2024 4:19 PM EDT [facility] Nitrite, Urine Negative Negative LAB URINALYSIS - AUTOMATED METHOD 05/17/2024 4:19 PM EDT [facility] Urine Urine specimen obtained by clean catch procedure / Unknown Non-blood Collection / Unknown 05/17/2024 3:07 PM EDT 05/17/2024 4:00 PM EDT us Maite Austin MD LAB URINE ORDERABLES Final Resu lt [facility] [address] [place] [address] * (ABNORMAL) Urine Culture (05/17/2024 3:07 PM EDT) Culture 100 CFU/mL Normal Urogenital [place](A) 05/18/2024 12:42 PM EDT [facility] Urine Urine specimen obtained by clean catch procedure / Unknown Non-blood Collection / Unknown 05/17/2024 3:07 PM EDT 05/17/2024 3:44 PM EDT Maite Austin MD LAB MICROBIOLOGY - GENERAL ORDE RABLES Final Result [facility] [address] [place] [address] * Transfuse RBC (05/17/2024 2:46 PM EDT) Dulce Alamo APRN BLOOD TRANSFUSION ORDERABLES Final Result * Transfuse RBC: 1 Units (05/17/2024 2:46 PM EDT) Dulce Alamo APRN BLOOD TRANSFUSION ORDERABLES Final Result * Lactate, venous (05/17/2024 11:16 AM EDT) Lactate, Venous, Whole Blood 1.4 0.5 - 2.2 mmol/L LAB HEMATOLOGY METHOD 05/17/2024 11:29 AM EDT [facility] Blood Venous blood specimen / Unknown Venipuncture / Unknown 05/17/2024 11:16 AM EDT 05/17/2024 11:27 AM EDT Maite Austin MD LAB BLOOD ORDERABLES Final Resu lt [facility] [address] [place] [address] * Blood Culture (Aerobic/Anaerobet Set) (05/17/2024 11:16 AM EDT) Culture No growth at day 5 ELI 05/22/2024 12:01 PM EDT [facility] Blood Structure of right wrist region / Unknown Venipuncture / Unknown 05/17/2024 11:16 AM EDT 05/17/2024 11:30 AM EDT us Maite Austin MD LAB MICROBIOLOGY - GENERAL ORDCaden MONK Final Result Performing Organization Address City/[facility] Co de Phone Number [facility] [address] [place] [address] * (ABNORMAL) POCT glucose meter (05/17/2024 10:59 AM EDT) [facility] POCT Glucose 68(L) 74 - 99 mg/dL [...] Comment 05/17/2024 11:01 AM EDT [facility] Hot Plate [employer] Press Offbearer ID Shira Grant 05/18/19 11:01 AM EDT [facility] Device ID [id number] 05/17/2024 11:01 AM EDT [facility] Specimen Type POC Capillary 05/17/2024 11:01 AM EDT [facility] Blood Capillary blood specimen / Unknown 05/17/2024 10:59 AM EDT 05/17/2024 11:01 AM EDT us Maite Austin MD LAB POINT OF CARE TE ST DOCKED DEVICE UNSOLICITED RESULTS Final Result Performing Organization Address City/[facility]/ZIP Co de Phone Number [facility] [address] [place] [address] * (ABNORMAL) CBC W/O Differential (05/17/2024 10:29 AM EDT) [facility] WBC Count 16.99(H) 3.70 - 10.30 10*3/uL LAB HEMATOLOGY METHOD 05/17/2024 2:07 PM EDT [facility] RBC Count 3.12(L) 3.90 - 5.20 10*6/uL LAB HEMATOLOGY METHOD 05/17/2024 2:07 PM EDT [facility] HGB 9.2(L) 11.2 - 15.7 g/dL LAB HEMATOLOGY METHOD 05/17/2024 2:07 PM EDT [facility] HCT 29.1(L) 34.0 - 45.0 % LAB HEMATOLOGY METHOD 05/17/2024 2:07 PM EDT [facility] Platelet Count 639(H) 155 - 369 10*3/uL LAB HEMATOLOGY METHOD 05/17/2024 2:07 PM EDT [facility] MCV 93 79 - 98 fL LAB HEMATOLOGY METHOD 05/17/2024 2:07 PM EDT [facility] MCH 29.5 26.0 - 32.0 pg LAB HEMATOLOGY METHOD 05/17/2024 2:07 PM EDT [facility] MCHC 31.6 30.7 - 35.5 g/dL LAB HEMATOLOGY METHOD 05/17/2024 2:07 PM EDT [facility] RDW 16.8(H) 11.5 - 14.5 % LAB HEMATOLOGY METHOD 05/17/2024 2:07 PM EDT [facility] MPV 10.8 8.8 - 12.5 fL LAB HEMATOLOGY METHOD 05/17/2024 2:07 PM EDT [facility] nRBC 0.0 <=0.0 per 100 WBCs LAB HEMATOLOGY METHOD 05/17/2024 2:07 PM EDT [facility] Blood Venous blood specimen / Unknown Venipuncture / Unknown 05/17/2024 10:29 AM EDT 05/17/2024 10:29 AM EDT us Trinity Yousif APRN LAB BLOOD ORDERABLES Final Res ult [facility] [address] [place] [address] * (ABNORMAL) WBC Differential (05/17/2024 10:29 AM EDT) Differential Type Automated LAB HEMATOLOGY METHOD 05/17/2024 11:59 AM EDT [facility] Neutrophils % 76 % LAB HEMATOLOGY METHOD 05/17/2024 11:59 AM EDT [facility] Lymphocytes % 10 % LAB HEMATOLOGY METHOD 05/17/2024 11:59 AM EDT [facility] Monocytes % 10 % LAB HEMATOLOGY METHOD 05/17/2024 11:59 AM EDT [facility] Eosinophils % 1 % LAB HEMATOLOGY METHOD 05/17/2024 11:59 AM EDT [facility] Basophils % 0 % LAB HEMATOLOGY METHOD 05/17/2024 11:59 AM EDT [facility] Immature Granulocytes % 3 % LAB HEMATOLOGY METHOD 05/17/2024 11:59 AM EDT [facility] Immature Granulocytes Absolute 0.47(H) 0.00 - 0.06 10*3/uL LAB HEMATOLOGY METHOD 05/17/2024 11:59 AM EDT [facility] Neutrophils Absolute 12.68(H) 1.60 - 6.10 10*3/uL LAB HEMATOLOGY METHOD 05/17/2024 11:59 AM EDT [facility] Lymphocytes Absolute 1.71 1.20 - 3.90 10*3/uL LAB HEMATOLOGY METHOD 05/17/2024 11:59 AM EDT [facility] Monocytes Absolute 1.62(H) 0.30 - 0.90 10*3/uL LAB HEMATOLOGY METHOD 05/17/2024 11:59 AM EDT [facility] Basophils Absolute 0.07 0.00 - 0.10 10*3/uL LAB HEMATOLOGY METHOD 05/17/2024 11:59 AM EDT [facility] Eosinophils Absolute 0.11 0.00 - 0.50 10*3/uL LAB HEMATOLOGY METHOD 05/17/2024 11:59 AM EDT [facility] Blood Venous blood specimen / Unknown Venipuncture / Unknown 05/17/2024 10:29 AM EDT 05/17/2024 10:29 AM EDT us Dulce Alamo APRN LAB BLOOD ORDERABLES Final R esult [facility] [address] [place] [address] * Lavender Top (05/17/2024 10:29 AM EDT) Extra Hold for add-ons 05/17/2024 1:01 PM EDT [facility] Comment:Auto resulted. Blood Venous blood specimen / Unknown Venipuncture / Unknown 05/17/2024 10:29 AM EDT 05/17/2024 10:29 AM EDT Maite Austin MD LAB BLOOD ORDERABLES Final Resu lt Performing Organization Address [facility]/ZIP Co de Phone Number [facility] [address] [place] [address] * (ABNORMAL) Lipase (05/17/2024 10:23 AM EDT) Lipase, Plasma 93(H) 19 - 63 U/L 05/17/2024 2:58 PM EDT [facility] Blood Venous blood specimen / Unknown Venipuncture / Unknown 05/17/2024 10:23 AM EDT 05/17/2024 10:28 AM EDT Miate Austin MD LAB BLOOD ORDERABLES Final Resu lt Performing Organization Address [facility] Co de Phone Number [facility] [address] [place] [address] * (ABNORMAL) Comprehensive metabolic panel (05/17/2024 10:23 AM EDT) Glucose, Plasma 58(L) 74 - 99 mg/dL 05/17/2024 2:08 PM EDT [facility] BUN, Plasma 13 7 - 21 mg/dL 05/17/2024 2:08 PM EDT [facility] Creatinine, Plasma 0.79 0.60 - 1.10 mg/dL 05/17/2024 2:08 PM EDT [facility] BUN/Creatinine Ratio 16 05/17/2024 2:08 PM EDT [facility] Sodium, Plasma 147(H) 136 - 145 mmol/L 05/17/2024 2:08 PM EDT [facility] Potassium, Plasma 4.0 3.6 - 4.9 mmol/L 05/17/2024 2:08 PM EDT [facility] Chloride, Plasma 116(H) 97 - 107 mmol/L 05/17/2024 2:08 PM EDT [facility] CO2, Plasma 14(L) 22 - 29 mmol/L 05/17/2024 2:08 PM EDT [facility] Anion Gap 17(H) 6 - 16 mmol/L 05/17/2024 2:08 PM EDT [facility] Total Calcium, Plasma 7.4(L) 8.9 - 10.2 mg/dL 05/17/2024 2:08 PM EDT [facility] Total Protein 6.1(L) 6.3 - 7.9 g/dL 05/17/2024 2:08 PM EDT [facility] Albumin, Plasma 2.4(L) 3.5 - 5.2 g/dL 05/17/2024 2:08 PM EDT [facility] AST, Plasma 83(H) 10 - 35 U/L 05/17/2024 2:08 PM EDT [facility] ALT, Plasma 37(H) 10 - 35 U/L 05/17/2024 2:08 PM EDT [facility] Alkaline Phosphatase, Plasma 127(H) 35 - 104 U/L 05/17/2024 2:08 PM EDT [facility] Total Bilirubin, Plasma 0.7 0.2 - 1.1 mg/dL 05/17/2024 2:08 PM EDT [facility] eGFRcr 89.0 mL/min/1.7 3m*2 05/17/2024 2:08 PM EDT [facility] Comment:Reported eGFRcr in m L/min/1.73m2 is based the CKD-EPI 2020 equation that does not use a race coefficient. Blood Venous blood specimen / Unknown Venipuncture / Unknown 05/17/2024 10:23 AM EDT 05/17/2024 10:28 AM EDT us Trinity Yousif APRN LAB BLOOD ORDERABLES Final Res ult [facility] [address] [place] [address] * (ABNORMAL) C-reactive protein (05/17/2024 10:23 AM EDT) CRP, Plasma 225.3(H) <=8.0 mg/L 05/17/2024 2:08 PM EDT [facility] Blood Venous blood specimen / Unknown Venipuncture / Unknown 05/17/2024 10:23 AM EDT 05/17/2024 10:28 AM EDT Narrative [facility] - 05/17/2024 2:08 PM EDT This CRP test is appropriate for assessment of infection, systemic inflammation and/or tissue injury. To assess cardiovascular disease risk order high sensitivity CRP (CRPH). us Trinity Yousif [employer] LAB BLOOD ORDERABLES Final Res ult Performing Organization Address City/[facility]/ZIP Co de Phone Number [facility] [address] [place] [address] * (ABNORMAL) Magnesium (05/17/2024 10:23 AM EDT) Magnesium, Plasma 1.8(L) 1.9 - 2.4 mg/dL 05/17/2024 11:05 AM EDT [facility] [facility] Blood Venous blood specimen / Unknown Venipuncture / Unknown 05/17/2024 10:23 AM EDT 05/17/2024 10:28 AM EDT us Dulce Alamo [employer] LAB BLOOD ORDERABLES Final R esult Performing Organization Address City/[facility]/ZIP Co de Phone Number [facility] [address] [place] [address] * (ABNORMAL) Basic metabolic panel (05/17/2024 10:23 AM EDT) Glucose, Plasma 69(L) 74 - 99 mg/dL 05/17/2024 11:05 AM EDT [facility] BUN, Plasma 13 7 - 21 mg/dL 05/17/2024 11:05 AM EDT [facility] Creatinine, Plasma 0.77 0.60 - 1.10 mg/dL 05/17/2024 11:05 AM EDT [facility] BUN/Creatinine Ratio 17 05/17/2024 11:05 AM EDT [facility] Sodium, Plasma 150(H) 136 - 145 mmol/L 05/17/2024 11:05 AM EDT [facility] Potassium, Plasma 4.1 3.6 - 4.9 mmol/L 05/17/2024 11:05 AM EDT [facility] Chloride, Plasma 118(H) 97 - 107 mmol/L 05/17/2024 11:05 AM EDT [facility] CO2, Plasma 16(L) 22 - 29 mmol/L 05/17/2024 11:05 AM EDT [facility] Anion Gap 16 6 - 16 mmol/L 05/17/2024 11:05 AM EDT [facility] Total Calcium, Plasma 7.4(L) 8.9 - 10.2 mg/dL 05/17/2024 11:05 AM EDT [facility] eGFRcr 91.8 mL/min/1.7 3m*2 05/17/2024 11:05 AM EDT [facility] Comment:Reported eGFRcr in m L/min/1.73m2 is based the CKD-EPI 2020 equation that does not use a race coefficient. Blood Venous blood specimen / Unknown Venipuncture / Unknown 05/17/2024 10:23 AM EDT 05/17/2024 10:28 AM EDT us Dulce Alamo APRN LAB BLOOD ORDERABLES Final R esult Performing Organization Address City/[facility]/ZIP Co de Phone Number [facility] [address] [place] [address] * Prepare Leukocyte Reduced RBC: 1 Units (05/17/2024 9:04 AM EDT) Product Code [id number] BLOO D BANK Dispense Status Transfused BLOOD BANK Blood Expiration Date [id number] BLOOD BANK Unit Number [id number] B LOOD BANK Product Blood Type 1700 BLOOD BANK Blood Type B- BLOOD BANK Crossmatch Compatible BLOOD BANK Other us Dulce Alamo APRN BLOOD BANK PRODUCT ORDERABLE S Final Result Performing Organization Address City/[facility]/ZIP Co de Phone Number BLOOD BANK [address] * POCT glucose meter (05/17/2024 6:04 [...] 05/17/2024 6:07 AM EDT [facility] [employer] Offbearer ID Leonarda Londono 6:07 AM EDT [facility] Device ID [id number] 05/17/2024 6:07 AM EDT [facility] Specimen Type POC Capillary 05/17/2024 6:07 AM EDT [facility] Blood Capillary blood specimen / Unknown 05/17/2024 6:04 AM EDT 05/17/2024 6:07 AM EDT Maite Austin MD LAB POINT OF CARE TE ST DOCKED DEVICE UNSOLICITED RESULTS Final Result [facility] [address] [place] [address] * XR Abdomen 1 View (05/17/2024 5:51 [...] - 99 mg/dL 05/17/2024 2:15 AM EDT [facility] Comment:Accuracy of a glucos e result [...] 05/17/2024 2:15 AM EDT [facility] [employer] Offbearer ID Yael Dominguez 025 2:15 AM EDT [facility] Device ID [id number] 05/17/2024 2:15 AM EDT [facility] Specimen Type POC Capillary 05/17/2024 2:15 AM EDT [facility] Blood Capillary blood specimen / Unknown 05/17/2024 2:13 AM EDT 05/17/2024 2:15 AM EDT us Maite Austin MD LAB POINT OF CARE TE ST DOCKED DEVICE UNSOLICITED RESULTS Final Result Performing Organization Address City/[facility] Co de Phone Number [facility] [address] [place] [address] * POCT glucose meter (05/17/2024 1:03 AM EDT) [facility] POCT Glucose 77 74 - 99 mg/dL 05/17/2024 1:06 AM EDT [facility] Comment:Accuracy of [...] 05/17/2024 1:06 AM EDT [facility] [employer] Offbearer ID Leonarda Londono 1:06 AM EDT [facility] Device ID [id number] 05/17/2024 1:06 AM EDT [facility] Specimen Type POC Capillary 05/17/2024 1:06 AM EDT [facility] Blood Capillary blood specimen / Unknown 05/17/2024 1:03 AM EDT 05/17/2024 1:06 AM EDT us Maite Austin MD LAB POINT OF CARE TE ST DOCKED DEVICE UNSOLICITED RESULTS Final Result Performing Organization Address City/[facility]/ZIP Co de Phone Number [facility] [address] [place] [address] * (ABNORMAL) POCT glucose meter (05/16/2024 11:58 PM EDT) [facility] POCT Glucose 63(L) 74 - 99 mg/dL [...] 05/16/2024 11:59 PM EDT [facility] [employer] Offbearer ID Yael Dominguez 025 11:59 PM EDT [facility] Device ID [id number] 05/16/2024 11:59 PM EDT [facility] Specimen Type POC Capillary 05/16/2024 11:59 PM EDT [facility] Blood Capillary blood specimen / Unknown 05/16/2024 11:58 PM EDT 05/16/2024 11:59 PM EDT Maite Austin MD LAB POINT OF CARE TE ST DOCKED DEVICE UNSOLICITED RESULTS Final Result [facility] [address] [place] [address] * POCT glucose meter (05/16/2024 5:47 PM EDT) [facility] POCT Glucose 80 74 - 99 mg/dL [...] 05/16/2024 5:49 PM EDT [facility] [employer] Offbearer ID Cristel Chen 5:49 PM EDT [facility] Device ID [id number] 05/16/2024 5:49 PM EDT [facility] Specimen Type POC Capillary 05/16/2024 5:49 PM EDT [facility] Blood Capillary blood specimen / Unknown 05/16/2024 5:47 PM EDT 05/16/2024 5:49 PM EDT Maite Austin MD LAB POINT OF CARE TE ST DOCKED DEVICE UNSOLICITED RESULTS Final Result Performing Organization Address City/[facility]/ZIP Co de Phone Number [facility] [address] [place] [address] * POCT glucose meter (05/16/2024 12:10 PM EDT) Pathologist [facility] POCT Glucose 91 74 - 99 mg/dL 05/16/2024 12:11 PM EDT [facility] Comment:Accuracy of [...] Comment 05/16/2024 12:11 PM EDT [facility] [employer] Offbearer ID Amadna Miller 025 12:11 PM EDT HEALTH[facility]ARE LAB Device ID [id number] 05/16/2024 12:11 PM EDT [facility] Specimen Type POC Capillary 05/16/2024 12:11 PM EDT [facility] Blood Capillary blood specimen / Unknown 05/16/2024 12:10 PM EDT 05/16/2024 12:11 PM EDT us Maite Austin MD LAB POINT OF CARE TE ST DOCKED DEVICE UNSOLICITED RESULTS Final Result [facility] [address] [place] [address] * Potassium (05/16/2024 12:05 PM EDT) Potassium, Plasma 4.1 3.6 - 4.9 mmol/L 05/16/2024 2:03 PM EDT [facility] Blood Venous blood specimen / Unknown Venipuncture / Unknown 05/16/2024 12:05 PM EDT 05/16/2024 12:48 PM EDT us Uriah PHILLIP LAB BLOOD ORDERABLES Final Result Performing Organization Address City/[facility] Co de Phone Number [facility] [address] [place] [address] * (ABNORMAL) POCT glucose meter (05/16/2024 5:28 AM EDT) [facility] POCT Glucose 100(H) 74 - 99 mg/dL [...] Comment 05/16/2024 5:30 AM EDT [facility] [employer] Offbearer ID Tiana Miller 05/17/19 5:30 AM EDT [facility] LAB Device ID [id number] 05/16/2024 5:30 AM EDT [facility] Specimen Type POC Capillary 05/16/2024 5:30 AM EDT [facility] Blood Capillary blood specimen / Unknown 05/16/2024 5:28 AM EDT 05/16/2024 5:30 AM EDT us Maite Austin MD LAB POINT OF CARE TE ST DOCKED DEVICE UNSOLICITED RESULTS Final Result Performing Organization Address City/[facility]/ZIP Co de Phone Number [facility] [address] [place] [address] * Magnesium (05/16/2024 3:20 AM EDT) [facility] Magnesium, Plasma 2.0 1.9 - 2.4 mg/dL 05/16/2024 3:58 AM EDT [facility] Blood Venous blood specimen / Unknown Venipuncture / Unknown 05/16/2024 3:20 AM EDT 05/16/2024 3:26 AM EDT us Trinity Anne Yousif [employer] LAB BLOOD ORDERABLES Final Res ult [facility] [address] [place] [address] * (ABNORMAL) Comprehensive metabolic panel (05/16/2024 3:20 AM EDT) Glucose, Plasma 99 74 - 99 mg/dL 05/16/2024 3:58 AM EDT [facility] BUN, Plasma 13 7 - 21 mg/dL 05/16/2024 3:58 AM EDT [facility] Creatinine, Plasma 0.91 0.60 - 1.10 mg/dL 05/16/2024 3:58 AM EDT [facility] BUN/Creatinine Ratio 14 05/16/2024 3:58 AM EDT [facility] Sodium, Plasma 144 136 - 145 mmol/L 05/16/2024 3:58 AM EDT [facility] Potassium, Plasma 3.5(L) 3.6 - 4.9 mmol/L 05/16/2024 3:58 AM EDT [facility] Chloride, Plasma 114(H) 97 - 107 mmol/L 05/16/2024 3:58 AM EDT [facility] CO2, Plasma 21(L) 22 - 29 mmol/L 05/16/2024 3:58 AM EDT [facility] Anion Gap 9 6 - 16 mmol/L 05/16/2024 3:58 AM EDT [facility] Total Calcium, Plasma 7.4(L) 8.9 - 10.2 mg/dL 05/16/2024 3:58 AM EDT [facility] Total Protein 5.5(L) 6.3 - 7.9 g/dL 05/16/2024 3:58 AM EDT [facility] Albumin, Plasma 2.2(L) 3.5 - 5.2 g/dL 05/16/2024 3:58 AM EDT [facility] AST, Plasma 60(H) 10 - 35 U/L 05/16/2024 3:58 AM EDT [facility] ALT, Plasma 19 10 - 35 U/L 05/16/2024 3:58 AM EDT [facility] Alkaline Phosphatase, Plasma 121(H) 35 - 104 U/L 05/16/2024 3:58 AM EDT [facility] Total Bilirubin, Plasma 0.6 0.2 - 1.1 mg/dL 05/16/2024 3:58 AM EDT [facility] eGFRcr 75.1 mL/min/1.7 3m*2 05/16/2024 3:58 AM EDT [facility] Comment:Reported eGFRcr in m L/min/1.73m2 is based the CKD-EPI 2020 equation that does not use a race coefficient. Blood Venous blood specimen / Unknown Venipuncture / Unknown 05/16/2024 3:20 AM EDT 05/16/2024 3:26 AM EDT us Trinity Yousif [employer] LAB BLOOD ORDERABLES Final Res ult [facility] [address] [place] [address] * (ABNORMAL) Hemogram (CBC) (05/16/2024 3:20 AM EDT) WBC Count 20.02(H) 3.70 - 10.30 10*3/uL LAB HEMATOLOGY METHOD 05/16/2024 3:38 AM EDT [facility] RBC Count 3.02(L) 3.90 - 5.20 10*6/uL LAB HEMATOLOGY METHOD 05/16/2024 3:38 AM EDT [facility] HGB 8.8(L) 11.2 - 15.7 g/dL LAB HEMATOLOGY METHOD 05/16/2024 3:38 AM EDT [facility] HCT 27.6(L) 34.0 - 45.0 % LAB HEMATOLOGY METHOD 05/16/2024 3:38 AM EDT [facility] Platelet Count 480(H) 155 - 369 10*3/uL LAB HEMATOLOGY METHOD 05/16/2024 3:38 AM EDT [facility] MCV 91 79 - 98 fL LAB HEMATOLOGY METHOD 05/16/2024 3:38 AM EDT [facility] MCH 29.1 26.0 - 32.0 pg LAB HEMATOLOGY METHOD 05/16/2024 3:38 AM EDT [facility] MCHC 31.9 30.7 - 35.5 g/dL LAB HEMATOLOGY METHOD 05/16/2024 3:38 AM EDT [facility] RDW 17.1(H) 11.5 - 14.5 % LAB HEMATOLOGY METHOD 05/16/2024 3:38 AM EDT [facility] MPV 10.4 8.8 - 12.5 fL LAB HEMATOLOGY METHOD 05/16/2024 3:38 AM EDT [facility] nRBC 0.2(H) <=0.0 per 100 WBCs LAB HEMATOLOGY METHOD 05/16/2024 3:38 AM EDT [facility] Blood Venous blood specimen / Unknown Venipuncture / Unknown 05/16/2024 3:20 AM EDT 05/16/2024 3:26 AM EDT us Trinity Yousif APRN LAB BLOOD ORDERABLES Final Res ult [facility] [address] [place] [address] * XR Abdomen 1 View (05/16/2024 2:40 [...] 7:52 AM Final report signed by Gurdeep dAam MD on 05/16/2024 7:55 AM Trinity Anne Yousif [employer] IMG XR PROCEDURES Final Result * XR [...] 05/16/2024 8:42 AM Final report signed by Adrash Richardson MD on 05/16/2024 10:33 AM Narrative [...] Adarsh Richardson MD on 05/16/2024 10:33 AM us Trinity Yousif [employer] IMG XR PROCEDURES Final Result * (ABNORMAL) [...] 05/16/2024 12:50 AM EDT [facility] [employer] Offbearer ID Tiana Miller 05/17/19 12:50 AM EDT HEALTHCARE LAB Device ID [id number] 05/16/2024 12:50 AM EDT [facility] Specimen Type POC Capillary 05/16/2024 12:50 AM EDT [facility] Blood Capillary blood specimen / Unknown 05/16/2024 12:48 AM EDT 05/16/2024 12:50 AM EDT Maite Austin MD LAB POINT OF CARE TE ST DOCKED DEVICE UNSOLICITED RESULTS Final Result [facility] [address] [place] [address] * (ABNORMAL) POCT glucose meter (05/15/2024 11:38 [...] for testing. Comment 05/15/2024 11:41 AM EDT [facility] [employer] Offbearer ID Jaem Okeefe 05/15/2024 11:41 AM EDT [facility]ALTH[facility]ARE LAB Device ID [id number] 05/15/2024 11:41 AM EDT [facility] Specimen Type POC Capillary 05/15/2024 11:41 AM EDT [facility] Blood Capillary blood specimen / Unknown 05/15/2024 11:38 AM EDT 05/15/2024 11:41 AM EDT Maite Austin MD LAB POINT OF CARE TE ST DOCKED DEVICE UNSOLICITED RESULTS Final Result Performing Organization Address City/State/[facility] Co de Phone Number [facility] [address] [place] [address] * (ABNORMAL) POCT glucose meter (05/15/2024 5:11 AM EDT) [facility] POCT Glucose 108(H) 74 - 99 mg/dL [...] 05/15/2024 5:12 AM EDT [facility] [employer] Offbearer ID Betty Young 025 5:12 AM EDT [facility] Device ID [id number] 05/15/2024 5:12 AM EDT [facility] Specimen Type POC Capillary 05/15/2024 5:12 AM EDT [facility] Blood Capillary blood specimen / Unknown 05/15/2024 5:11 AM EDT 05/15/2024 5:12 AM EDT Maite Austin MD LAB POINT OF CARE TE ST DOCKED DEVICE UNSOLICITED RESULTS Final Result [facility] [address] [place] [address] * XR Abdomen 1 View (05/15/2024 2:56 [...] Cass Stoll DO on 05/15/2024 9:01 AM Maite Austin MD IMG XR PROCEDURES Final Result * (ABNORMAL) Comprehensive metabolic panel (05/15/2024 1:13 AM EDT) [facility] Glucose, Plasma 99 74 - 99 mg/dL 05/15/2024 2:14 AM EDT [facility] BUN, Plasma 17 7 - 21 mg/dL 05/15/2024 2:14 AM EDT [facility] Creatinine, Plasma 0.90 0.60 - 1.10 mg/dL 05/15/2024 2:14 AM EDT [facility] BUN/Creatinine Ratio 19 05/15/2024 2:14 AM EDT [facility] Sodium, Plasma 145 136 - 145 mmol/L 05/15/2024 2:14 AM EDT [facility] Potassium, Plasma 3.3(L) 3.6 - 4.9 mmol/L 05/15/2024 2:14 AM EDT [facility] Chloride, Plasma 111(H) 97 - 107 mmol/L 05/15/2024 2:14 AM EDT [facility] CO2, Plasma 22 22 - 29 mmol/L 05/15/2024 2:14 AM EDT [facility] Anion Gap 12 6 - 16 mmol/L 05/15/2024 2:14 AM EDT [facility] Total Calcium, Plasma 7.3(L) 8.9 - 10.2 mg/dL 05/15/2024 2:14 AM EDT [facility] Total Protein 5.7(L) 6.3 - 7.9 g/dL 05/15/2024 2:14 AM EDT [facility] Albumin, Plasma 2.4(L) 3.5 - 5.2 g/dL 05/15/2024 2:14 AM EDT [facility] AST, Plasma 68(H) 10 - 35 U/L 05/15/2024 2:14 AM EDT [facility] ALT, Plasma 20 10 - 35 U/L 05/15/2024 2:14 AM EDT [facility] Alkaline Phosphatase, Plasma 129(H) 35 - 104 U/L 05/15/2024 2:14 AM EDT [facility] Total Bilirubin, Plasma 1.0 0.2 - 1.1 mg/dL 05/15/2024 2:14 AM EDT [facility] eGFRcr 76.1 mL/min/1.7 3m*2 05/15/2024 2:14 AM EDT [facility] Comment:Reported eGFRcr in m L/min/1.73m2 is based the CKD-EPI 2020 equation that does not use a race coefficient. Blood Venous blood specimen / Unknown Venipuncture / Unknown 05/15/2024 1:13 AM EDT 05/15/2024 1:20 AM EDT us Maite Austin MD LAB BLOOD ORDERABLES Final Resu lt Performing Organization Address City/[facility]/ZIP Co de Phone Number [facility] [address] [place] [address] * Phosphorus (05/15/2024 1:13 AM EDT) Phosphorus, Plasma 3.9 2.5 - 4.5 mg/dL 05/15/2024 2:14 AM EDT [facility] Blood Venous blood specimen / Unknown Venipuncture / Unknown 05/15/2024 1:13 AM EDT 05/15/2024 1:20 AM EDT us Maite Austin MD LAB BLOOD ORDERABLES Final Resu lt Performing Organization Address City/[facility]/ZIP Co de Phone Number [facility] [address] [place] [address] * Magnesium (05/15/2024 1:13 AM EDT) Magnesium, Plasma 1.9 1.9 - 2.4 mg/dL 05/15/2024 2:14 AM EDT [facility] Blood Venous blood specimen / Unknown Venipuncture / Unknown 05/15/2024 1:13 AM EDT 05/15/2024 1:20 AM EDT us Maite Austin MD LAB BLOOD ORDERABLES Final Resu lt Performing Organization Address City/[facility]/ZIP Co de Phone Number [facility] [address] [place] [address] * (ABNORMAL) CBC W/O Differential (05/15/2024 1:13 AM EDT) [facility] WBC Count 28.49(H) 3.70 - 10.30 10*3/uL LAB HEMATOLOGY METHOD 05/15/2024 3:22 AM EDT [facility] RBC Count 3.02(L) 3.90 - 5.20 10*6/uL LAB HEMATOLOGY METHOD 05/15/2024 3:22 AM EDT [facility] HGB 8.9(L) 11.2 - 15.7 g/dL LAB HEMATOLOGY METHOD 05/15/2024 3:22 AM EDT [facility] HCT 26.5(L) 34.0 - 45.0 % LAB HEMATOLOGY METHOD 05/15/2024 3:22 AM EDT [facility] Platelet Count 402(H) 155 - 369 10*3/uL LAB HEMATOLOGY METHOD 05/15/2024 3:22 AM EDT [facility] MCV 88 79 - 98 fL LAB HEMATOLOGY METHOD 05/15/2024 3:22 AM EDT [facility] MCH 29.5 26.0 - 32.0 pg LAB HEMATOLOGY METHOD 05/15/2024 3:22 AM EDT [facility] MCHC 33.6 30.7 - 35.5 g/dL LAB HEMATOLOGY METHOD 05/15/2024 3:22 AM EDT [facility] RDW 16.5(H) 11.5 - 14.5 % LAB HEMATOLOGY METHOD 05/15/2024 3:22 AM EDT [facility] MPV 10.7 8.8 - 12.5 fL LAB HEMATOLOGY METHOD 05/15/2024 3:22 AM EDT [facility] nRBC 0.7(H) <=0.0 per 100 WBCs LAB HEMATOLOGY METHOD 05/15/2024 3:22 AM EDT [facility] Blood Venous blood specimen / Unknown Venipuncture / Unknown 05/15/2024 1:13 AM EDT 05/15/2024 1:20 AM EDT us Maite Austin MD LAB BLOOD ORDERABLES Final Resu lt [facility] [address] [place] [address] * WBC Differential (05/15/2024 1:13 AM EDT) Differential Type LAB HEMATOLOGY METHOD 05/15/2024 3:21 AM EDT [facility] Neutrophils % LAB HEMATOLOGY METHOD 05/15/2024 3:21 AM EDT [facility] Lymphocytes % LAB HEMATOLOGY METHOD 05/15/2024 3:21 AM EDT [facility] Monocytes % LAB HEMATOLOGY METHOD 05/15/2024 3:21 AM EDT [facility] Eosinophils % LAB HEMATOLOGY METHOD 05/15/2024 3:21 AM EDT [facility] Basophils % LAB HEMATOLOGY METHOD 05/15/2024 3:21 AM EDT [facility] Immature Granulocytes % LAB HEMATOLOGY METHOD 05/15/2024 3:21 AM EDT [facility] Immature Granulocytes Absolute LAB HEMATOLOGY METHOD 05/15/2024 3:21 AM EDT [facility] Neutrophils Absolute LAB HEMATOLOGY METHOD 05/15/2024 3:21 AM EDT [facility] Lymphocytes Absolute LAB HEMATOLOGY METHOD 05/15/2024 3:21 AM EDT [facility] Monocytes Absolute LAB HEMATOLOGY METHOD 05/15/2024 3:21 AM EDT [facility] Basophils Absolute LAB HEMATOLOGY METHOD 05/15/2024 3:21 AM EDT [facility] Eosinophils Absolute LAB HEMATOLOGY METHOD 05/15/2024 3:21 AM EDT [facility] Blood Venous blood specimen / Unknown Venipuncture / Unknown 05/15/2024 1:13 AM EDT 05/15/2024 1:20 AM EDT us Lora Llanes [employer] LAB BLOOD ORDERABLES Final Result [facility] [address] [place] [address] * (ABNORMAL) POCT glucose meter (05/14/2024 6:04 PM EDT) POCT Glucose 145(H) 74 - 99 mg/dL 05/14/2024 6:06 PM EDT [facility] Comment:Accuracy of a glucos e [...] Comment 05/14/2024 6:06 PM EDT HEALTHCARE LAB [employer] Offbearer ID Jazmyne Malone 6:06 PM EDT [facility]ALTH[facility] LAB Device ID [id number] 05/14/2024 6:06 PM EDT [facility] Specimen Type POC Capillary 05/14/2024 6:06 PM EDT [facility] Blood Capillary blood specimen / Unknown 05/14/2024 6:04 PM EDT 05/14/2024 6:06 PM EDT Maite Austin MD LAB POINT OF CARE TE ST DOCKED DEVICE UNSOLICITED RESULTS Final Result Performing Organization Address City/[facility] Phone Number [facility]ALTHCARE LAB [address] [place] [address] * Transfuse RBC (05/14/2024 3:26 PM EDT) Maite Austin MD BLOOD TRANSFUSION ORDERABLES Fi nal Result * Transfuse RBC: 1 Units (05/14/2024 3:26 PM EDT) Maite Austin MD BLOOD TRANSFUSION ORDERABLES Fi nal Result * POCT glucose meter (05/14/2024 12:10 PM EDT) [facility] POCT Glucose 94 74 - 99 mg/dL [...] for testing. Comment 05/14/2024 12:11 PM EDT [facility] [employer] Offbearer ID Jazmyne Malone 12:11 PM EDT HEALTHCARE LAB Device ID [id number] 05/14/2024 12:11 PM EDT [facility] LAB Specimen Type POC Venous 05/14/2024 12:11 PM EDT [facility] Blood Venous blood specimen / Unknown 05/14/2024 12:10 PM EDT 05/14/2024 12:11 PM EDT Maite Austin MD LAB POINT OF CARE TE ST DOCKED DEVICE UNSOLICITED RESULTS Final Result Performing Organization Address City/[facility]/ZIP Co de Phone Number [facility]ALTH[facility]ARE LAB [address] [place] [address] * Type and screen (05/14/2024 12:10 PM [...] TEST ORDERABLES Final Result Performing Organization Address [facility] de Phone Number BLOOD BANK [address] [place] [address] * (ABNORMAL) Ferritin (05/14/2024 12:10 PM EDT) Ferritin, Serum 1,271(H) 13 - 150 ng/mL 05/14/2024 1:05 PM EDT [facility] Blood Venous blood specimen / Unknown Venipuncture / Unknown 05/14/2024 12:10 PM EDT 05/14/2024 12:22 PM EDT Maite Austin MD LAB BLOOD ORDERABLES Final Resu lt Performing Organization Address City/[facility]/ZIP Co de Phone Number [facility] [address] [place] [address] * (ABNORMAL) Iron & Total Iron Binding Capacity, Plasma (Includes Transferrin) (05/14/2024 12:10 PM EDT) Iron, Plasma 25(L) 30 - 160 ug/dL 05/14/2024 1:01 PM EDT [facility] Transferrin, Plasma 125(L) 200 - 360 mg/dL 05/14/2024 1:01 PM EDT [facility] Total Iron Binding Capacity, Plasma 156(L) 240 - 450 ug/mL 05/14/2024 1:01 PM EDT [facility] Transferrin Saturation 16 14 - 50 % 05/14/2024 1:01 PM EDT [facility] Blood Venous blood specimen / Unknown Venipuncture / Unknown 05/14/2024 12:10 PM EDT 05/14/2024 12:22 PM EDT us Maite Austin MD LAB BLOOD ORDERABLES Final Resu lt Performing Organization Address City/[facility]/ZIP Co de Phone Number [facility] [address] [place] [address] * Prepare Leukocyte Reduced RBC: 1 Units (05/14/2024 12:02 PM EDT) Product Code [id number] BLOO D BANK Dispense Status Transfused BLOOD BANK Blood Expiration Date [id number] BLOOD BANK Unit Number [id number] CH B LOOD BANK Product Blood Type 7300 BLOOD BANK Blood Type B+ BLOOD BANK Crossmatch Compatible BLOOD BANK Other us Maite Austin MD BLOOD BANK PRODUCT ORDERABLES F inal Result Performing Organization Address [facility] Co de Phone Number BLOOD BANK [address] [place] [address], * XR Abdomen 1 View (05/14/2024 9:50 [...] 10:51 AM Final report signed by Edson Ambroes MD on 05/14/2024 10:52 AM Narrative 05/14/2024 [...] - 4.5 mg/dL 05/14/2024 4:52 AM EDT [facility] Blood Venous blood specimen / Unknown Venipuncture / Unknown 05/14/2024 3:35 AM EDT 05/14/2024 3:53 AM EDT Maite Austin MD LAB BLOOD ORDERABLES Final Resu lt [facility] [address] [place] [address] * (ABNORMAL) Basic metabolic panel (05/14/2024 3:35 AM EDT) Glucose, Plasma 109(H) 74 - 99 mg/dL 05/14/2024 4:52 AM EDT [facility] BUN, Plasma 16 7 - 21 mg/dL 05/14/2024 4:52 AM EDT [facility] Creatinine, Plasma 0.89 0.60 - 1.10 mg/dL 05/14/2024 4:52 AM EDT [facility] BUN/Creatinine Ratio 18 05/14/2024 4:52 AM EDT [facility] Sodium, Plasma 141 136 - 145 mmol/L 05/14/2024 4:52 AM EDT [facility] Potassium, Plasma 3.6 3.6 - 4.9 mmol/L 05/14/2024 4:52 AM EDT [facility] Chloride, Plasma 109(H) 97 - 107 mmol/L 05/14/2024 4:52 AM EDT [facility] CO2, Plasma 23 22 - 29 mmol/L 05/14/2024 4:52 AM EDT [facility] Anion Gap 9 6 - 16 mmol/L 05/14/2024 4:52 AM EDT [facility] Total Calcium, Plasma 7.4(L) 8.9 - 10.2 mg/dL 05/14/2024 4:52 AM EDT [facility] eGFRcr 77.2 mL/min/1.7 3m*2 05/14/2024 4:52 AM EDT [facility] Comment:Reported eGFRcr in m L/min/1.73m2 is based the CKD-EPI 2020 equation that does not use a race coefficient. Blood Venous blood specimen / Unknown Venipuncture / Unknown 05/14/2024 3:35 AM EDT 05/14/2024 3:53 AM EDT us Maite Austin MD LAB BLOOD ORDERABLES Final Resu lt [facility] [address] [place] [address] * (ABNORMAL) CBC W/O Differential (05/14/2024 3:35 AM EDT) WBC Count 35.22(H) 3.70 - 10.30 10*3/uL LAB HEMATOLOGY METHOD 05/14/2024 4:04 AM EDT [facility] RBC Count 2.43(L) 3.90 - 5.20 10*6/uL LAB HEMATOLOGY METHOD 05/14/2024 4:04 AM EDT [facility] HGB 7.2(L) 11.2 - 15.7 g/dL LAB HEMATOLOGY METHOD 05/14/2024 4:04 AM EDT [facility] HCT 22.0(L) 34.0 - 45.0 % LAB HEMATOLOGY METHOD 05/14/2024 4:04 AM EDT [facility] Platelet Count 352 155 - 369 10*3/uL LAB HEMATOLOGY METHOD 05/14/2024 4:04 AM EDT [facility] MCV 91 79 - 98 fL LAB HEMATOLOGY METHOD 05/14/2024 4:04 AM EDT [facility] MCH 29.6 26.0 - 32.0 pg LAB HEMATOLOGY METHOD 05/14/2024 4:04 AM EDT [facility] MCHC 32.7 30.7 - 35.5 g/dL LAB HEMATOLOGY METHOD 05/14/2024 4:04 AM EDT [facility] RDW 15.4(H) 11.5 - 14.5 % LAB HEMATOLOGY METHOD 05/14/2024 4:04 AM EDT [facility] MPV 11.0 8.8 - 12.5 fL LAB HEMATOLOGY METHOD 05/14/2024 4:04 AM EDT [facility] nRBC 0.3(H) <=0.0 per 100 WBCs LAB HEMATOLOGY METHOD 05/14/2024 4:04 AM EDT [facility] Blood Venous blood specimen / Unknown Venipuncture / Unknown 05/14/2024 3:35 AM EDT 05/14/2024 3:53 AM EDT us Maite Austin MD LAB BLOOD ORDERABLES Final Resu lt [facility] [address] [place] [address] * Magnesium, Plasma (05/14/2024 3:35 AM EDT) Magnesium, Plasma 2.0 1.9 - 2.4 mg/dL 05/14/2024 4:52 AM EDT [facility] Blood Venous blood specimen / Unknown Venipuncture / Unknown 05/14/2024 3:35 AM EDT 05/14/2024 3:53 AM EDT Lora Llanes APRN LAB BLOOD ORDERABLES Final Result Performing Organization Address City/[facility]/ZIP Co de Phone Number [facility] [address] [place] [address] * SARS CoV-2/COVID-19 by PCR (05/13/2024 9:34 PM EDT) [facility] SARS CoV-2/COVID-1 9 RNA PCR Result Not Detected Not Detected 05/15/2024 7:05 AM EDT [facility] Swab Nasopharyngeal structure / Unknown Non-blood Collection / Unknown 05/13/2024 9:34 PM EDT 05/13/2024 10:34 PM EDT Narrative [facility] - 05/15/2024 7:05 AM EDT This [...] This test was performed using the [employer] SARS CoV-2 assay, a PCR-based method. Negative [...] POLLY MONK Final Result Performing Organization Address City/[facility]/ZIP Co de Phone Number [facility] [address] [place] [address] * Nasopharyngeal Respiratory Panel (05/13/2024 9:34 PM EDT) [facility] Nasopharyngeal Respiratory PCR Interpretation Not Detected for all analytes Not Detected for all analytes 05/14/2024 2:56 AM EDT [facility] Swab Nasopharyngeal structure / Unknown Non-blood Collection / Unknown 05/13/2024 9:34 PM EDT 05/13/2024 10:34 PM EDT Narrative [facility] - 05/14/2024 2:56 AM EDT This [...] Respiratory PCR Panel is performed using the [employer] instrument. This test is FDA approved for use with Nasopharyngeal swabs only. This test is used for clinical purposes. It should not be regarded as investigational or for research. The [facility] Clinical Microbiology Laboratory is certified under the Clinical Laboratory Improvement Amendments of 1988 (CLIA-88) as qualified to perform high complexity clinical laboratory testing. Maite Austin MD LAB [facility] Final Result [facility] [address] [place] [address] * (ABNORMAL) POCT glucose meter (05/13/2024 5:21 PM EDT) POCT Glucose 146(H) 74 - 99 mg/dL 05/13/2024 5:23 PM EDT [facility] Comment:Accuracy of a glucos e result [...] for testing. Comment 05/13/2024 5:23 PM EDT [facility] [employer] Offbearer ID Yolanda Peña Caden 5:23 PM EDT [facility] Device ID [id number] 05/13/2024 5:23 PM EDT [facility] Specimen Type POC Venous 05/13/2024 5:23 PM EDT [facility] Blood Venous blood specimen / Unknown 05/13/2024 5:21 PM EDT 05/13/2024 5:23 PM EDT Maite Austin MD LAB POINT OF CARE TE ST DOCKED DEVICE UNSOLICITED RESULTS Final Result Performing Organization Address City/[facility]/ZIP Co de Phone Number [facility] [address] [place] [address] * POCT glucose meter (05/13/2024 12:23 PM EDT) POCT Glucose 92 74 - 99 mg/dL 05/13/2024 12:25 PM EDT [facility] Comment:Accuracy of a [...] Comment 05/13/2024 12:25 PM EDT [facility] [employer] Offbearer ID Yolanda Peña 12:25 PM EDT [facility]ARE LAB Device ID [id number] 05/13/2024 12:25 PM EDT [facility] Specimen Type POC Capillary 05/13/2024 12:25 PM EDT [facility] Blood Capillary blood specimen / Unknown 05/13/2024 12:23 PM EDT 05/13/2024 12:25 PM EDT us Maite Austin MD LAB POINT OF CARE TE ST DOCKED DEVICE UNSOLICITED RESULTS Final Result Performing Organization Address City/[facility]/ZIP Co de Phone Number [facility] [address] [place] [address] * Blood Culture (Aerobic/Anaerobet Set) (05/13/2024 9:47 AM EDT) Culture No growth at day 5 ELI 05/18/2024 11:01 AM EDT [facility] Blood Structure of antecubital vein / Unknown Venipuncture / Unknown 05/13/2024 9:47 AM EDT 05/13/2024 10:21 AM EDT us Christi Sherman APRN LAB MICROBIOLOGY - GENERAL ORDERABLES Final Result Performing Organization Address City/[facility]/ZIP Co de Phone Number [facility] [address] [place] [address] * (ABNORMAL) Hepatic function panel (05/13/2024 5:54 AM EDT) Conjugated Bilirubin, Plasma 0.7(H) <=0.3 mg/dL 05/13/2024 11:24 AM EDT [facility] Alkaline Phosphatase, Plasma 136(H) 35 - 104 U/L 05/13/2024 11:24 AM EDT [facility] Total Bilirubin, Plasma 1.1 0.2 - 1.1 mg/dL 05/13/2024 11:24 AM EDT [facility] Albumin, Plasma 2.6(L) 3.5 - 5.2 g/dL 05/13/2024 11:24 AM EDT [facility] Total Protein 5.5(L) 6.3 - 7.9 g/dL 05/13/2024 11:24 AM EDT [facility] ALT, Plasma 30 10 - 35 U/L 05/13/2024 11:24 AM EDT [facility] AST, Plasma 84(H) 10 - 35 U/L 05/13/2024 11:24 AM EDT [facility] Blood Venous blood specimen / Unknown Venipuncture / Unknown 05/13/2024 5:54 AM EDT 05/13/2024 6:00 AM EDT us Christi Sherman APRN LAB BLOOD ORDERABLES Final Result Performing Organization Address City/[facility]/ZIP Co de Phone Number [facility] [address] [place] [address] * Phosphorus (05/13/2024 5:54 AM EDT) Phosphorus, Plasma 4.1 2.5 - 4.5 mg/dL 05/13/2024 6:27 AM EDT [facility] Blood Venous blood specimen / Unknown Venipuncture / Unknown 05/13/2024 5:54 AM EDT 05/13/2024 6:00 AM EDT us Lora Llanes [employer] LAB BLOOD ORDERABLES Final Result [facility] [address] [place] [address] * XR Chest 1 View (05/13/2024 2:43 [...] MD on 05/13/2024 1:16 PM us Christi Van Sherman [employer] IMG XR PROCEDURES Final Re sult * [...] 7:32 AM Final report signed by Cass tSoll DO on 05/13/2024 7:35 AM Christi Sherman APRN IMG XR PROCEDURES Final Re sult * (ABNORMAL) Procalcitonin (05/13/2024 12:43 AM EDT) Procalcitonin, Plasma 1.32(H) <0.09 ng/mL 05/13/2024 1:27 AM EDT [facility] Blood Venous blood specimen / Unknown Venipuncture / Unknown 05/13/2024 12:43 AM EDT 05/13/2024 12:49 AM EDT Narrative [facility] - 05/13/2024 1:27 AM EDT Procalcitonin [...] predict 28 day mortality risk. Please consult [email or web address] for more information. Test performed at [facility], [facility]. Christi Sherman APRN LAB BLOOD ORDERABLES Final Result [facility] [address] [place] [address] * (ABNORMAL) Hemogram (CBC) (05/13/2024 12:43 AM EDT) WBC Count 37.45(H) 3.70 - 10.30 10*3/uL LAB HEMATOLOGY METHOD 05/13/2024 1:02 AM EDT [facility] RBC Count 2.63(L) 3.90 - 5.20 10*6/uL LAB HEMATOLOGY METHOD 05/13/2024 1:02 AM EDT [facility] HGB 7.9(L) 11.2 - 15.7 g/dL LAB HEMATOLOGY METHOD 05/13/2024 1:02 AM EDT [facility] HCT 23.0(L) 34.0 - 45.0 % LAB HEMATOLOGY METHOD 05/13/2024 1:02 AM EDT [facility] Platelet Count 256 155 - 369 10*3/uL LAB HEMATOLOGY METHOD 05/13/2024 1:02 AM EDT [facility] MCV 88 79 - 98 fL LAB HEMATOLOGY METHOD 05/13/2024 1:02 AM EDT [facility] MCH 30.0 26.0 - 32.0 pg LAB HEMATOLOGY METHOD 05/13/2024 1:02 AM EDT [facility] MCHC 34.3 30.7 - 35.5 g/dL LAB HEMATOLOGY METHOD 05/13/2024 1:02 AM EDT [facility] RDW 14.9(H) 11.5 - 14.5 % LAB HEMATOLOGY METHOD 05/13/2024 1:02 AM EDT [facility] MPV 11.4 8.8 - 12.5 fL LAB HEMATOLOGY METHOD 05/13/2024 1:02 AM EDT [facility] nRBC 0.2(H) <=0.0 per 100 WBCs LAB HEMATOLOGY METHOD 05/13/2024 1:02 AM EDT [facility] Blood Venous blood specimen / Unknown Venipuncture / Unknown 05/13/2024 12:43 AM EDT 05/13/2024 12:49 AM EDT Christi Sherman APRN LAB BLOOD ORDERABLES Final Result [facility] [address] [place] [address] * (ABNORMAL) Renal function panel (05/13/2024 12:43 AM EDT) Glucose, Plasma 103(H) 74 - 99 mg/dL 05/13/2024 1:27 AM EDT [facility] BUN, Plasma 18 7 - 21 mg/dL 05/13/2024 1:27 AM EDT [facility] Creatinine, Plasma 0.98 0.60 - 1.10 mg/dL 05/13/2024 1:27 AM EDT [facility] BUN/Creatinine Ratio 18 05/13/2024 1:27 AM EDT [facility] Sodium, Plasma 143 136 - 145 mmol/L 05/13/2024 1:27 AM EDT [facility] Potassium, Plasma 3.8 3.6 - 4.9 mmol/L 05/13/2024 1:27 AM EDT [facility] Chloride, Plasma 106 97 - 107 mmol/L 05/13/2024 1:27 AM EDT [facility] CO2, Plasma 24 22 - 29 mmol/L 05/13/2024 1:27 AM EDT [facility] Anion Gap 13 6 - 16 mmol/L 05/13/2024 1:27 AM EDT [facility] Total Calcium, Plasma 7.7(L) 8.9 - 10.2 mg/dL 05/13/2024 1:27 AM EDT [facility] Phosphorus, Plasma 4.0 2.5 - 4.5 mg/dL 05/13/2024 1:27 AM EDT [facility] Albumin, Plasma 2.6(L) 3.5 - 5.2 g/dL 05/13/2024 1:27 AM EDT [facility] eGFRcr 68.7 mL/min/1.7 3m*2 05/13/2024 1:27 AM EDT [facility] Comment:Reported eGFRcr in m L/min/1.73m2 is based the CKD-EPI 2020 equation that does not use a race coefficient. Blood Venous blood specimen / Unknown Venipuncture / Unknown 05/13/2024 12:43 AM EDT 05/13/2024 12:49 AM EDT us Christi B Lane [employer] LAB BLOOD ORDERABLES Final Result Performing Organization Address City/[facility]/ZIP Co de Phone Number [facility] [address] [place] [address] * (ABNORMAL) Magnesium, Plasma (05/13/2024 12:43 AM EDT) [facility] Magnesium, Plasma 2.5(H) 1.9 - 2.4 mg/dL 05/13/2024 1:27 AM EDT [facility] Blood Venous blood specimen / Unknown Venipuncture / Unknown 05/13/2024 12:43 AM EDT 05/13/2024 12:49 AM EDT us Lora Llanes [employer] LAB BLOOD ORDERABLES Final Result Performing Organization Address [facility] Co de Phone Number [facility] [address] [place] [address] * POCT glucose meter (05/12/2024 6:40 PM EDT) [facility] POCT Glucose 96 74 - 99 mg/dL [...] 05/12/2024 6:41 PM EDT [facility] [employer] Offbearer ID Yolanda Peña 6:41 PM EDT [facility] Device ID [id number] 05/12/2024 6:41 PM EDT [facility] Specimen Type POC Venous 05/12/2024 6:41 PM EDT [facility] Blood Venous blood specimen / Unknown 05/12/2024 6:40 PM EDT 05/12/2024 6:41 PM EDT us Maite Austin MD LAB POINT OF CARE TE ST DOCKED DEVICE UNSOLICITED RESULTS Final Result Performing Organization Address City/[facility]/ZIP Co de Phone Number [facility] [address] [place] [address] * Lactate, venous (05/12/2024 1:11 PM EDT) Pathologist [facility] Lactate, Venous, Whole Blood 1.6 0.5 - 2.2 mmol/L LAB HEMATOLOGY METHOD 05/12/2024 1:17 PM EDT [facility] Blood Venous blood specimen / Unknown Venipuncture / Unknown 05/12/2024 1:11 PM EDT 05/12/2024 1:16 PM EDT us Maite Austin MD LAB BLOOD ORDERABLES Final Resu lt [facility] [address] [place] [address] * Magnesium (05/12/2024 12:55 PM EDT) Pathologist [facility] Magnesium, Plasma 2.4 1.9 - 2.4 mg/dL 05/12/2024 1:35 PM EDT [facility] Blood Venous blood specimen / Unknown Venipuncture / Unknown 05/12/2024 12:55 PM EDT 05/12/2024 1:04 PM EDT us Christi Sherman APRN LAB BLOOD ORDERABLES Final Result [facility] [address] [place] [address] * (ABNORMAL) Renal function panel (05/12/2024 12:55 PM EDT) Glucose, Plasma 125(H) 74 - 99 mg/dL 05/12/2024 1:35 PM EDT [facility] BUN, Plasma 17 7 - 21 mg/dL 05/12/2024 1:35 PM EDT [facility] Creatinine, Plasma 1.05 0.60 - 1.10 mg/dL 05/12/2024 1:35 PM EDT [facility] BUN/Creatinine Ratio 16 05/12/2024 1:35 PM EDT [facility] Sodium, Plasma 141 136 - 145 mmol/L 05/12/2024 1:35 PM EDT [facility] Potassium, Plasma 3.6 3.6 - 4.9 mmol/L 05/12/2024 1:35 PM EDT [facility] Chloride, Plasma 102 97 - 107 mmol/L 05/12/2024 1:35 PM EDT [facility] CO2, Plasma 25 22 - 29 mmol/L 05/12/2024 1:35 PM EDT [facility] Anion Gap 14 6 - 16 mmol/L 05/12/2024 1:35 PM EDT [facility] Total Calcium, Plasma 8.1(L) 8.9 - 10.2 mg/dL 05/12/2024 1:35 PM EDT [facility] Phosphorus, Plasma 4.0 2.5 - 4.5 mg/dL 05/12/2024 1:35 PM EDT [facility] Albumin, Plasma 2.7(L) 3.5 - 5.2 g/dL 05/12/2024 1:35 PM EDT [facility] eGFRcr 63.3 mL/min/1.7 3m*2 05/12/2024 1:35 PM EDT [facility] Comment:Reported eGFRcr in m L/min/1.73m2 is based the CKD-EPI 2020 equation that does not use a race coefficient. Blood Venous blood specimen / Unknown Venipuncture / Unknown 05/12/2024 12:55 PM EDT 05/12/2024 1:04 PM EDT Christi Araujo [facility] LAB BLOOD ORDERABLES Final Result [facility] [address] [place] [address] * (ABNORMAL) POCT glucose meter (05/12/2024 12:01 PM EDT) Pathologist [facility] POCT Glucose 119(H) 74 - 99 mg/dL 05/12/2024 12:03 PM EDT [facility] Comment:Accuracy of a glucos e [...] Comment 05/12/2024 12:03 PM EDT [facility] [employer] Offbearer ID Yolanda Peña 12:03 PM EDT [facility] Device ID [id number] 05/12/2024 12:03 PM EDT [facility] Specimen Type POC Venous 05/12/2024 12:03 PM EDT [facility] Blood Venous blood specimen / Unknown 05/12/2024 12:01 PM EDT 05/12/2024 12:03 PM EDT us Maite Austin MD LAB POINT OF CARE TE ST DOCKED DEVICE UNSOLICITED RESULTS Final Result Performing Organization Address City/[facility]/ZIP Co de Phone Number [facility] [address] [place] [id number] * (ABNORMAL) POCT glucose meter (05/12/2024 11:59 AM EDT) [facility] POCT Glucose 276(H) 74 - 99 mg/dL [...] for testing. Comment 05/12/2024 12:02 PM EDT [facility] [employer] Offbearer ID Yolanda Peña 12:02 PM EDT [facility] Device ID [id number] 05/12/2024 12:02 PM EDT [facility] Specimen Type POC Venous 05/12/2024 12:02 PM EDT [facility] Blood Venous blood specimen / Unknown 05/12/2024 11:59 AM EDT 05/12/2024 12:02 PM EDT us Maite Austin MD LAB POINT OF CARE TE ST DOCKED DEVICE UNSOLICITED RESULTS Final Result [facility] [address] [place] [address] * CT Abdomen Pelvis wo IV Contrast [...] Giovanni Shi MD on 05/12/2024 2:12 PM us Christi Sherman [employer] IMG CT PROCEDURES Final Re sult * Lactate, venous (05/12/2024 10:12 AM EDT) [facility] Lactate, Venous, Whole Blood 1.6 0.5 - 2.2 mmol/L LAB HEMATOLOGY METHOD 05/12/2024 10:18 AM EDT [facility] Blood Venous blood specimen / Unknown Venipuncture / Unknown 05/12/2024 10:12 AM EDT 05/12/2024 10:16 AM EDT us Maite Austin MD LAB BLOOD ORDERABLES Final Resu lt Performing Organization Address City/[facility]/[place] [address] * (ABNORMAL) POCT glucose meter (05/12/2024 6:57 AM EDT) [facility] POCT Glucose 109(H) 74 - 99 mg/dL [...] for testing. Comment 05/12/2024 6:59 AM EDT [facility] [employer] Offbearer ID Cheryl Mcconnell 05/13/19 6:59 AM EDT HEALTHCARE LAB Device ID [id number] 05/12/2024 6:59 AM EDT [facility] LAB Specimen Type POC Capillary 05/12/2024 6:59 AM EDT [facility] Blood Capillary blood specimen / Unknown 05/12/2024 6:57 AM EDT 05/12/2024 6:59 AM EDT us Maite Austin MD LAB POINT OF CARE TE ST DOCKED DEVICE UNSOLICITED RESULTS Final Result Performing Organization Address City/[facility]/ZIP Co de Phone Number [facility] [address] [place] [address] * XR Chest 1 View (05/12/2024 2:33 [...] Zahraa Berger MD on 05/12/2024 3:53 PM Maite Austin MD IMG XR PROCEDURES Final Result * (ABNORMAL) Blood gas panel, venous (05/12/2024 12:58 AM EDT) pH, Venous 7.49(H) 7.32 - 7.43 LAB HEMATOLOGY METHOD 05/12/2024 12:58 AM EDT [facility] pCO2, Venous 36(L) 37 - 52 mmHg LAB HEMATOLOGY METHOD 05/12/2024 12:58 AM EDT [facility] pO2, Venous 45(H) 25 - 40 mmHg LAB HEMATOLOGY METHOD 05/12/2024 12:58 AM EDT [facility] SO2, Measured, Venous 82(H) 65 - 80 % LAB HEMATOLOGY METHOD 05/12/2024 12:58 AM EDT [facility] Base Excess, Venous 4.4(H) -2.0 - 3.0 mmol/L LAB HEMATOLOGY METHOD 05/12/2024 12:58 AM EDT [facility] Bicarbonate, Calculated, Venous 28(H) 22 - 26 mmol/L LAB HEMATOLOGY METHOD 05/12/2024 12:58 AM EDT [facility] Hematocrit, Whole Blood 26.7(L) 34.0 - 45.0 % LAB HEMATOLOGY METHOD 05/12/2024 12:58 AM EDT [facility] Sodium, Whole Blood 140 136 - 145 mmol/L LAB HEMATOLOGY METHOD 05/12/2024 12:58 AM EDT [facility] Potassium, Whole Blood 3.1(L) 3.6 - 4.9 mmol/L LAB HEMATOLOGY METHOD 05/12/2024 12:58 AM EDT [facility] Chloride, Whole Blood 101 97 - 107 mmol/L LAB HEMATOLOGY METHOD 05/12/2024 12:58 AM EDT [facility] Glucose, Whole Blood 101(H) 74 - 99 mg/dL LAB HEMATOLOGY METHOD 05/12/2024 12:58 AM EDT [facility] Lactate, Venous, Whole Blood 1.6 0.5 - 2.2 mmol/L LAB HEMATOLOGY METHOD 05/12/2024 12:58 AM EDT [facility] Ionized Calcium, Whole Blood 4.4(L) 4.6 - 5.1 mg/dL LAB HEMATOLOGY METHOD 05/12/2024 12:58 AM EDT [facility] Blood Venous blood specimen / Unknown 05/12/2024 12:53 AM EDT Lora Chinoer [employer] LAB BLOOD ORDERABLES Final Result Performing Organization Address [facility] Co de Phone Number [facility] [address] [place] [address] * (ABNORMAL) Procalcitonin (05/12/2024 12:34 AM EDT) Procalcitonin, Plasma 2.08(H) <0.09 ng/mL 05/12/2024 2:46 AM EDT [facility] Blood Venous blood specimen / Unknown Venipuncture / Unknown 05/12/2024 12:34 AM EDT 05/12/2024 1:00 AM EDT Narrative [facility] - 05/12/2024 2:46 AM EDT Procalcitonin [...] predict 28 day mortality risk. Please consult [email or web address] for more information. Test performed at [facility], Core Laboratory. Lora Seymour Shraddha [employer] LAB BLOOD ORDERABLES Final Result [facility] [address] [place] [address] * Lipase (05/12/2024 12:34 AM EDT) Lipase, Plasma 55 19 - 63 U/L 05/12/2024 2:46 AM EDT [facility] Blood Venous blood specimen / Unknown Venipuncture / Unknown 05/12/2024 12:34 AM EDT 05/12/2024 1:00 AM EDT us Lora Llanes [employer] LAB BLOOD ORDERABLES Final Result [facility] [address] [place] [address] * (ABNORMAL) Basic metabolic panel (05/12/2024 12:34 AM EDT) Glucose, Plasma 102(H) 74 - 99 mg/dL 05/12/2024 2:46 AM EDT [facility] BUN, Plasma 21 7 - 21 mg/dL 05/12/2024 2:46 AM EDT [facility] Creatinine, Plasma 1.13(H) 0.60 - 1.10 mg/dL 05/12/2024 2:46 AM EDT [facility] BUN/Creatinine Ratio 19 05/12/2024 2:46 AM EDT [facility] Sodium, Plasma 141 136 - 145 mmol/L 05/12/2024 2:46 AM EDT [facility] Potassium, Plasma 3.3(L) 3.6 - 4.9 mmol/L 05/12/2024 2:46 AM EDT [facility] Chloride, Plasma 103 97 - 107 mmol/L 05/12/2024 2:46 AM EDT [facility] CO2, Plasma 23 22 - 29 mmol/L 05/12/2024 2:46 AM EDT [facility] Anion Gap 15 6 - 16 mmol/L 05/12/2024 2:46 AM EDT [facility] Total Calcium, Plasma 8.3(L) 8.9 - 10.2 mg/dL 05/12/2024 2:46 AM EDT [facility] eGFRcr 57.9 mL/min/1.7 3m*2 05/12/2024 2:46 AM EDT [facility] Comment:Reported eGFRcr in m L/min/1.73m2 is based the CKD-EPI 2020 equation that does not use a race coefficient. Blood Venous blood specimen / Unknown Venipuncture / Unknown 05/12/2024 12:34 AM EDT 05/12/2024 1:00 AM EDT us Maite Austin MD LAB BLOOD ORDERABLES Final Resu lt [facility] [address] [place] [address] * (ABNORMAL) Hemogram (CBC) (05/12/2024 12:34 AM EDT) WBC Count 32.60(H) 3.70 - 10.30 10*3/uL LAB HEMATOLOGY METHOD 05/12/2024 1:08 AM EDT [facility] RBC Count 2.77(L) 3.90 - 5.20 10*6/uL LAB HEMATOLOGY METHOD 05/12/2024 1:08 AM EDT [facility] HGB 8.4(L) 11.2 - 15.7 g/dL LAB HEMATOLOGY METHOD 05/12/2024 1:08 AM EDT [facility] HCT 23.9(L) 34.0 - 45.0 % LAB HEMATOLOGY METHOD 05/12/2024 1:08 AM EDT [facility] Platelet Count 184 155 - 369 10*3/uL LAB HEMATOLOGY METHOD 05/12/2024 1:08 AM EDT [facility] MCV 86 79 - 98 fL LAB HEMATOLOGY METHOD 05/12/2024 1:08 AM EDT [facility] MCH 30.3 26.0 - 32.0 pg LAB HEMATOLOGY METHOD 05/12/2024 1:08 AM EDT [facility] MCHC 35.1 30.7 - 35.5 g/dL LAB HEMATOLOGY METHOD 05/12/2024 1:08 AM EDT [facility] RDW 15.2(H) 11.5 - 14.5 % LAB HEMATOLOGY METHOD 05/12/2024 1:08 AM EDT [facility] MPV 11.4 8.8 - 12.5 fL LAB HEMATOLOGY METHOD 05/12/2024 1:08 AM EDT [facility] nRBC 0.4(H) <=0.0 per 100 WBCs LAB HEMATOLOGY METHOD 05/12/2024 1:08 AM EDT [facility] Blood Venous blood specimen / Unknown Venipuncture / Unknown 05/12/2024 12:34 AM EDT 05/12/2024 1:02 AM EDT us Maite Austin MD LAB BLOOD ORDERABLES Final Resu lt Performing Organization Address City/[facility]/ZIP Co de Phone Number [facility] [address] [place] [address] * Phosphorus (05/12/2024 12:34 AM EDT) Phosphorus, Plasma 3.9 2.5 - 4.5 mg/dL 05/12/2024 2:46 AM EDT [facility] Blood Venous blood specimen / Unknown Venipuncture / Unknown 05/12/2024 12:34 AM EDT 05/12/2024 1:00 AM EDT us Lora Llanes APRN LAB BLOOD ORDERABLES Final Result Performing Organization Address [facility] Co de Phone Number [facility] [address] [place] [address] * Magnesium, Plasma (05/12/2024 12:34 AM EDT) Magnesium, Plasma 2.0 1.9 - 2.4 mg/dL 05/12/2024 2:46 AM EDT [facility] Blood Venous blood specimen / Unknown Venipuncture / Unknown 05/12/2024 12:34 AM EDT 05/12/2024 1:00 AM EDT us Lora Llanes APRN LAB BLOOD ORDERABLES Final Result Performing Organization Address [facility] Co de Phone Number [facility] [address] [place] [address] * (ABNORMAL) POCT glucose meter (05/12/2024 12:22 AM EDT) Pathologist [facility] POCT Glucose 102(H) 74 - 99 mg/dL 05/12/2024 12:23 AM EDT [facility] Comment:Accuracy of a glucos e [...] 05/12/2024 12:23 AM EDT [facility] Hot [employer] Offbearer ID Cheryl Mcconnell 05/13/19 12:23 AM EDT [facility] Device ID [id number] 05/12/2024 12:23 AM EDT [facility] Specimen Type POC Capillary 05/12/2024 12:23 AM EDT [facility] Blood Capillary blood specimen / Unknown 05/12/2024 12:22 AM EDT 05/12/2024 12:23 AM EDT us Maite Austin MD LAB POINT OF CARE TE ST DOCKED DEVICE UNSOLICITED RESULTS Final Result Performing Organization Address City/State/[facility] Co de Phone Number [facility] [address] [place] [address] * XR Abdomen 1 View (05/11/2024 11:53 [...] Lorri Lopez MD on 05/12/2024 12:00 AM Lora Seymour Shraddha [employer] IMG XR PROCEDURES Final Res ult * [...] Comment 05/11/2024 6:11 PM EDT [facility] [employer] Offbearer ID [email or web address], 05/12/19 6:11 PM EDT [facility] Device ID [id number] 05/11/2024 6:11 PM EDT [facility] Specimen Type POC Capillary 05/11/2024 6:11 PM EDT [facility] Blood Capillary blood specimen / Unknown 05/11/2024 6:09 PM EDT 05/11/2024 6:11 PM EDT Maite Austin MD LAB POINT OF CARE TE ST DOCKED DEVICE UNSOLICITED RESULTS Final Result [facility] [address] [place] [address] * Magnesium (05/11/2024 2:02 PM EDT) Magnesium, Plasma 2.2 1.9 - 2.4 mg/dL 05/11/2024 2:49 PM EDT [facility] Blood Venous blood specimen / Unknown Venipuncture / Unknown 05/11/2024 2:02 PM EDT 05/11/2024 2:20 PM EDT Maite Austin MD LAB BLOOD ORDERABLES Final Resu lt [facility] [address] [place] [address] * (ABNORMAL) Renal function panel (05/11/2024 2:02 PM EDT) Glucose, Plasma 89 74 - 99 mg/dL 05/11/2024 2:49 PM EDT [facility] BUN, Plasma 22(H) 7 - 21 mg/dL 05/11/2024 2:49 PM EDT [facility] Creatinine, Plasma 1.18(H) 0.60 - 1.10 mg/dL 05/11/2024 2:49 PM EDT [facility] BUN/Creatinine Ratio 19 05/11/2024 2:49 PM EDT [facility] Sodium, Plasma 142 136 - 145 mmol/L 05/11/2024 2:49 PM EDT [facility] Potassium, Plasma 3.9 3.6 - 4.9 mmol/L 05/11/2024 2:49 PM EDT [facility] Chloride, Plasma 106 97 - 107 mmol/L 05/11/2024 2:49 PM EDT [facility] CO2, Plasma 24 22 - 29 mmol/L 05/11/2024 2:49 PM EDT [facility] Anion Gap 12 6 - 16 mmol/L 05/11/2024 2:49 PM EDT [facility] Total Calcium, Plasma 9.1 8.9 - 10.2 mg/dL 05/11/2024 2:49 PM EDT [facility] Phosphorus, Plasma 4.4 2.5 - 4.5 mg/dL 05/11/2024 2:49 PM EDT [facility] Albumin, Plasma 3.0(L) 3.5 - 5.2 g/dL 05/11/2024 2:49 PM EDT [facility] eGFRcr 55.0 mL/min/1.7 3m*2 05/11/2024 2:49 PM EDT [facility] Comment:Reported eGFRcr in m L/min/1.73m2 is based the CKD-EPI 2020 equation that does not use a race coefficient. Blood Venous blood specimen / Unknown Venipuncture / Unknown 05/11/2024 2:02 PM EDT 05/11/2024 2:20 PM EDT Maite Austin MD LAB BLOOD ORDERABLES Final Resu lt Performing Organization Address City/[facility]/ZIP Co de Phone Number [facility] [address] [place] [address] * (ABNORMAL) POCT glucose meter (05/11/2024 11:48 AM EDT) [facility] POCT Glucose 200(H) 74 - 99 mg/dL [...] Comment 05/11/2024 11:50 AM EDT [facility] [employer] Offbearer ID [email or web address], 05/12/19 11:50 AM EDT [facility] Device ID [id number] 05/11/2024 11:50 AM EDT [facility] Specimen Type POC Capillary 05/11/2024 11:50 AM EDT [facility] Blood Capillary blood specimen / Unknown 05/11/2024 11:48 AM EDT 05/11/2024 11:50 AM EDT Maite Austin MD LAB POINT OF CARE TE ST DOCKED DEVICE UNSOLICITED RESULTS Final Result Performing Organization Address City/[facility]/ZIP Co de Phone Number [facility] [address] [place] [address] * (ABNORMAL) POCT glucose meter (05/11/2024 11:14 AM EDT) [facility] POCT Glucose 69(L) 74 - 99 mg/dL [...] Comment 05/11/2024 11:43 AM EDT [facility] Hot [employer] Offbearer ID [email or web address], 05/12/19 11:43 AM EDT [facility] Device ID [id number] 05/11/2024 11:43 AM EDT [facility] Specimen Type POC Capillary 05/11/2024 11:43 AM EDT [facility] Blood Capillary blood specimen / Unknown 05/11/2024 11:14 AM EDT 05/11/2024 11:43 AM EDT us Maite Austin MD LAB POINT OF CARE TE ST DOCKED DEVICE UNSOLICITED RESULTS Final Result Performing Organization Address [facility] Co de Phone Number [facility] [address] [place] [address] * Phosphorus (05/11/2024 2:38 AM EDT) Phosphorus, Plasma 3.8 2.5 - 4.5 mg/dL 05/11/2024 3:16 AM EDT [facility] Blood Venous blood specimen / Unknown Venipuncture / Unknown 05/11/2024 2:38 AM EDT 05/11/2024 2:46 AM EDT us Lora Llanes APRN LAB BLOOD ORDERABLES Final Result Performing Organization Address City/[facility]/ZIP Co de Phone Number [facility] [address] [place] [address] * (ABNORMAL) Basic metabolic panel (05/11/2024 2:38 AM EDT) Glucose, Plasma 86 74 - 99 mg/dL 05/11/2024 3:16 AM EDT [facility] BUN, Plasma 22(H) 7 - 21 mg/dL 05/11/2024 3:16 AM EDT [facility] Creatinine, Plasma 1.09 0.60 - 1.10 mg/dL 05/11/2024 3:16 AM EDT [facility] BUN/Creatinine Ratio 20 05/11/2024 3:16 AM EDT [facility] Sodium, Plasma 141 136 - 145 mmol/L 05/11/2024 3:16 AM EDT [facility] Potassium, Plasma 3.7 3.6 - 4.9 mmol/L 05/11/2024 3:16 AM EDT [facility] Chloride, Plasma 106 97 - 107 mmol/L 05/11/2024 3:16 AM EDT [facility] CO2, Plasma 24 22 - 29 mmol/L 05/11/2024 3:16 AM EDT [facility] Anion Gap 11 6 - 16 mmol/L 05/11/2024 3:16 AM EDT [facility] Total Calcium, Plasma 7.8(L) 8.9 - 10.2 mg/dL 05/11/2024 3:16 AM EDT [facility] eGFRcr 60.5 mL/min/1.7 3m*2 05/11/2024 3:16 AM EDT [facility] Comment:Reported eGFRcr in m L/min/1.73m2 is based the CKD-EPI 2020 equation that does not use a race coefficient. Blood Venous blood specimen / Unknown Venipuncture / Unknown 05/11/2024 2:38 AM EDT 05/11/2024 2:46 AM EDT us Maite Austin MD LAB BLOOD ORDERABLES Final Resu lt [facility] [address] [place] [address] * (ABNORMAL) Hemogram (CBC) (05/11/2024 2:38 AM EDT) WBC Count 23.95(H) 3.70 - 10.30 10*3/uL LAB HEMATOLOGY METHOD 05/11/2024 2:54 AM EDT [facility] RBC Count 2.92(L) 3.90 - 5.20 10*6/uL LAB HEMATOLOGY METHOD 05/11/2024 2:54 AM EDT [facility] HGB 8.6(L) 11.2 - 15.7 g/dL LAB HEMATOLOGY METHOD 05/11/2024 2:54 AM EDT [facility] HCT 25.0(L) 34.0 - 45.0 % LAB HEMATOLOGY METHOD 05/11/2024 2:54 AM EDT [facility] Platelet Count 146(L) 155 - 369 10*3/uL LAB HEMATOLOGY METHOD 05/11/2024 2:54 AM EDT [facility] MCV 86 79 - 98 fL LAB HEMATOLOGY METHOD 05/11/2024 2:54 AM EDT [facility] MCH 29.5 26.0 - 32.0 pg LAB HEMATOLOGY METHOD 05/11/2024 2:54 AM EDT [facility] MCHC 34.4 30.7 - 35.5 g/dL LAB HEMATOLOGY METHOD 05/11/2024 2:54 AM EDT [facility] RDW 15.6(H) 11.5 - 14.5 % LAB HEMATOLOGY METHOD 05/11/2024 2:54 AM EDT [facility] MPV 10.6 8.8 - 12.5 fL LAB HEMATOLOGY METHOD 05/11/2024 2:54 AM EDT [facility] nRBC 0.9(H) <=0.0 per 100 WBCs LAB HEMATOLOGY METHOD 05/11/2024 2:54 AM EDT [facility] Blood Venous blood specimen / Unknown Venipuncture / Unknown 05/11/2024 2:38 AM EDT 05/11/2024 2:47 AM EDT us Maite Austin MD LAB BLOOD ORDERABLES Final Resu lt [facility] [address] [place] [address] * (ABNORMAL) Blood gas panel, venous (05/11/2024 2:38 AM EDT) pH, Venous 7.46(H) 7.32 - 7.43 LAB HEMATOLOGY METHOD 05/11/2024 2:56 AM EDT [facility] pCO2, Venous 37 37 - 52 mmHg LAB HEMATOLOGY METHOD 05/11/2024 2:56 AM EDT [facility] pO2, Venous 65(H) 25 - 40 mmHg LAB HEMATOLOGY METHOD 05/11/2024 2:56 AM EDT [facility] SO2, Measured, Venous 94(H) 65 - 80 % LAB HEMATOLOGY METHOD 05/11/2024 2:56 AM EDT [facility] Base Excess, Venous 2.0 -2.0 - 3.0 mmol/L LAB HEMATOLOGY METHOD 05/11/2024 2:56 AM EDT [facility] Bicarbonate, Calculated, Venous 26 22 - 26 mmol/L LAB HEMATOLOGY METHOD 05/11/2024 2:56 AM EDT [facility] Hematocrit, Whole Blood 25.3(L) 34.0 - 45.0 % LAB HEMATOLOGY METHOD 05/11/2024 2:56 AM EDT [facility] Sodium, Whole Blood 143 136 - 145 mmol/L LAB HEMATOLOGY METHOD 05/11/2024 2:56 AM EDT [facility] Potassium, Whole Blood 3.4(L) 3.6 - 4.9 mmol/L LAB HEMATOLOGY METHOD 05/11/2024 2:56 AM EDT [facility] Chloride, Whole Blood 106 97 - 107 mmol/L LAB HEMATOLOGY METHOD 05/11/2024 2:56 AM EDT [facility] Glucose, Whole Blood 82 74 - 99 mg/dL LAB HEMATOLOGY METHOD 05/11/2024 2:56 AM EDT [facility] Lactate, Venous, Whole Blood 1.2 0.5 - 2.2 mmol/L LAB HEMATOLOGY METHOD 05/11/2024 2:56 AM EDT [facility] Ionized Calcium, Whole Blood 4.2(L) 4.6 - 5.1 mg/dL LAB HEMATOLOGY METHOD 05/11/2024 2:56 AM EDT [facility] Blood Venous blood specimen / Unknown Venipuncture / Unknown 05/11/2024 2:38 AM EDT 05/11/2024 2:52 AM EDT us Lora Llanes APRN LAB BLOOD ORDERABLES Final Result [facility] [address] [place] [address] * Magnesium, Plasma (05/11/2024 2:38 AM EDT) Pathologist [facility] Magnesium, Plasma 2.3 1.9 - 2.4 mg/dL 05/11/2024 3:16 AM EDT [facility] Blood Venous blood specimen / Unknown Venipuncture / Unknown 05/11/2024 2:38 AM EDT 05/11/2024 2:46 AM EDT us Lora Llanes [employer] LAB BLOOD ORDERABLES Final Result [facility] [address] [place] [address] * XR Abdomen 1 View (05/11/2024 2:20 [...] Comment 05/10/2024 8:59 PM EDT [facility] Hot Plate [employer] Press Offbearer ID Ernestina Freeman 05/11/19 8:59 PM EDT [facility] Device ID [id number] 05/10/2024 8:59 PM EDT [facility] Specimen Type POC Capillary 05/10/2024 8:59 PM EDT [facility] Blood Capillary blood specimen / Unknown 05/10/2024 8:57 PM EDT 05/10/2024 8:59 PM EDT us Maite Austin MD LAB POINT OF CARE TE ST DOCKED DEVICE UNSOLICITED RESULTS Final Result [facility] [address] [place] [address] * (ABNORMAL) POCT glucose meter (05/10/2024 5:38 PM EDT) POCT Glucose 100(H) 74 - 99 [...] for testing. Comment 05/10/2024 5:40 PM EDT [facility] Hot [employer] Offbearer ID [email or web address], 05/11/19 5:40 PM EDT [facility] Device ID [id number] 05/10/2024 5:40 PM EDT [facility] Specimen Type POC Capillary 05/10/2024 5:40 PM EDT [facility] Blood Capillary blood specimen / Unknown 05/10/2024 5:38 PM EDT 05/10/2024 5:40 PM EDT Maite Austin MD LAB POINT OF CARE TE ST DOCKED DEVICE UNSOLICITED RESULTS Final Result Performing Organization Address City/State/[facility] Co de Phone Number [facility] [address] [place] [address] * POCT glucose meter (05/10/2024 1:26 PM EDT) [facility] POCT Glucose 92 74 - 99 mg/dL 05/10/2024 1:34 PM EDT [facility] Comment:Accuracy of a [...] for testing. Comment 05/10/2024 1:34 PM EDT [facility] Hot Plate [employer] Offbearer ID [email or web address], 05/11/19 1:34 PM EDT [facility] Device ID [id number] 05/10/2024 1:34 PM EDT [facility] Specimen Type POC Capillary 05/10/2024 1:34 PM EDT [facility] Blood Capillary blood specimen / Unknown 05/10/2024 1:26 PM EDT 05/10/2024 1:34 PM EDT Maite Austin MD LAB POINT OF CARE TE ST DOCKED DEVICE UNSOLICITED RESULTS Final Result [facility] [address] [place] [address] * XR Abdomen 1 View (05/10/2024 11:41 [...] Tato Lee MD on 05/10/2024 2:05 PM us Maite Austin MD IMG XR [...] - 4.5 mg/dL 05/10/2024 6:23 AM EDT [facility] Blood Venous blood specimen / Unknown Venipuncture / Unknown 05/10/2024 5:41 AM EDT 05/10/2024 5:53 AM EDT us Lora Seymour [place] [employer] LAB BLOOD ORDERABLES Final Result [facility] [address] [place] [address] * (ABNORMAL) Blood gas panel, venous (05/10/2024 5:41 AM EDT) pH, Venous 7.44(H) 7.32 - 7.43 LAB HEMATOLOGY METHOD 05/10/2024 5:49 AM EDT [facility] pCO2, Venous 39 37 - 52 mmHg LAB HEMATOLOGY METHOD 05/10/2024 5:49 AM EDT [facility] pO2, Venous 34 25 - 40 mmHg LAB HEMATOLOGY METHOD 05/10/2024 5:49 AM EDT [facility] SO2, Measured, Venous 62(L) 65 - 80 % LAB HEMATOLOGY METHOD 05/10/2024 5:49 AM EDT [facility] Base Excess, Venous 1.8 -2.0 - 3.0 mmol/L LAB HEMATOLOGY METHOD 05/10/2024 5:49 AM EDT [facility] Bicarbonate, Calculated, Venous 26 22 - 26 mmol/L LAB HEMATOLOGY METHOD 05/10/2024 5:49 AM EDT [facility] Hematocrit, Whole Blood 27.1(L) 34.0 - 45.0 % LAB HEMATOLOGY METHOD 05/10/2024 5:49 AM EDT [facility] Sodium, Whole Blood 143 136 - 145 mmol/L LAB HEMATOLOGY METHOD 05/10/2024 5:49 AM EDT [facility] Potassium, Whole Blood 3.8 3.6 - 4.9 mmol/L LAB HEMATOLOGY METHOD 05/10/2024 5:49 AM EDT [facility] Chloride, Whole Blood 108(H) 97 - 107 mmol/L LAB HEMATOLOGY METHOD 05/10/2024 5:49 AM EDT [facility] Glucose, Whole Blood 97 74 - 99 mg/dL LAB HEMATOLOGY METHOD 05/10/2024 5:49 AM EDT [facility] Lactate, Venous, Whole Blood 1.8 0.5 - 2.2 mmol/L LAB HEMATOLOGY METHOD 05/10/2024 5:49 AM EDT [facility] Ionized Calcium, Whole Blood 4.2(L) 4.6 - 5.1 mg/dL LAB HEMATOLOGY METHOD 05/10/2024 5:49 AM EDT [facility] Blood Venous blood specimen / Unknown Venipuncture / Unknown 05/10/2024 5:41 AM EDT 05/10/2024 5:48 AM EDT us Lora Llanes APRN LAB BLOOD ORDERABLES Final Result Performing Organization Address City/[facility]/ZIP Co de Phone Number [facility] [address] [place] [address] * (ABNORMAL) Magnesium, Plasma (05/10/2024 5:41 AM EDT) Magnesium, Plasma 2.5(H) 1.9 - 2.4 mg/dL 05/10/2024 6:23 AM EDT [facility] Blood Venous blood specimen / Unknown Venipuncture / Unknown 05/10/2024 5:41 AM EDT 05/10/2024 5:53 AM EDT us Lora Llanes APRN LAB BLOOD ORDERABLES Final Result Performing Organization Address City/[facility]/ZIP Co de Phone Number [facility] [address] [place] [address] * (ABNORMAL) Hepatic function panel (05/10/2024 5:41 AM EDT) Conjugated Bilirubin, Plasma 0.2 <=0.3 mg/dL 05/10/2024 6:23 AM EDT [facility] Alkaline Phosphatase, Plasma 112(H) 35 - 104 U/L 05/10/2024 6:23 AM EDT [facility] Total Bilirubin, Plasma 0.5 0.2 - 1.1 mg/dL 05/10/2024 6:23 AM EDT [facility] Albumin, Plasma 2.7(L) 3.5 - 5.2 g/dL 05/10/2024 6:23 AM EDT [facility] Total Protein 5.7(L) 6.3 - 7.9 g/dL 05/10/2024 6:23 AM EDT [facility] ALT, Plasma 45(H) 10 - 35 U/L 05/10/2024 6:23 AM EDT [facility] AST, Plasma 201(H) 10 - 35 U/L 05/10/2024 6:23 AM EDT [facility] Blood Venous blood specimen / Unknown Venipuncture / Unknown 05/10/2024 5:41 AM EDT 05/10/2024 5:53 AM EDT us Maite Austin MD LAB BLOOD ORDERABLES Final Resu lt [facility] [address] [place] [address] * (ABNORMAL) Basic metabolic panel (05/10/2024 5:41 AM EDT) Glucose, Plasma 101(H) 74 - 99 mg/dL 05/10/2024 6:23 AM EDT [facility] BUN, Plasma 28(H) 7 - 21 mg/dL 05/10/2024 6:23 AM EDT [facility] Creatinine, Plasma 1.28(H) 0.60 - 1.10 mg/dL 05/10/2024 6:23 AM EDT [facility] BUN/Creatinine Ratio 05/10/2024 6:23 AM EDT [facility] Sodium, Plasma 143 136 - 145 mmol/L 05/10/2024 6:23 AM EDT [facility] Potassium, Plasma 4.0 3.6 - 4.9 mmol/L 05/10/2024 6:23 AM EDT [facility] Chloride, Plasma 108(H) 97 - 107 mmol/L 05/10/2024 6:23 AM EDT [facility] CO2, Plasma 24 22 - 29 mmol/L 05/10/2024 6:23 AM EDT [facility] Anion Gap 11 6 - 16 mmol/L 05/10/2024 6:23 AM EDT [facility] Total Calcium, Plasma 7.8(L) 8.9 - 10.2 mg/dL 05/10/2024 6:23 AM EDT [facility] eGFRcr 49.9 mL/min/1.7 3m*2 05/10/2024 6:23 AM EDT [facility] Comment:Reported eGFRcr in m L/min/1.73m2 is based the CKD-EPI 2020 equation that does not use a race coefficient. Blood Venous blood specimen / Unknown Venipuncture / Unknown 05/10/2024 5:41 AM EDT 05/10/2024 5:53 AM EDT us Maite Austin MD LAB BLOOD ORDERABLES Final Resu lt [facility] [address] [place] [address] * (ABNORMAL) Hemogram (CBC) (05/10/2024 5:41 AM EDT) WBC Count 22.88(H) 3.70 - 10.30 10*3/uL LAB HEMATOLOGY METHOD 05/10/2024 6:05 AM EDT [facility] RBC Count 3.06(L) 3.90 - 5.20 10*6/uL LAB HEMATOLOGY METHOD 05/10/2024 6:05 AM EDT [facility] HGB 9.0(L) 11.2 - 15.7 g/dL LAB HEMATOLOGY METHOD 05/10/2024 6:05 AM EDT [facility] HCT 26.4(L) 34.0 - 45.0 % LAB HEMATOLOGY METHOD 05/10/2024 6:05 AM EDT [facility] Platelet Count 149(L) 155 - 369 10*3/uL LAB HEMATOLOGY METHOD 05/10/2024 6:05 AM EDT [facility] MCV 86 79 - 98 fL LAB HEMATOLOGY METHOD 05/10/2024 6:05 AM EDT [facility] MCH 29.4 26.0 - 32.0 pg LAB HEMATOLOGY METHOD 05/10/2024 6:05 AM EDT [facility] MCHC 34.1 30.7 - 35.5 g/dL LAB HEMATOLOGY METHOD 05/10/2024 6:05 AM EDT [facility] RDW 15.7(H) 11.5 - 14.5 % LAB HEMATOLOGY METHOD 05/10/2024 6:05 AM EDT [facility] MPV 11.8 8.8 - 12.5 fL LAB HEMATOLOGY METHOD 05/10/2024 6:05 AM EDT [facility] nRBC 0.6(H) <=0.0 per 100 WBCs LAB HEMATOLOGY METHOD 05/10/2024 6:05 AM EDT [facility] Blood Venous blood specimen / Unknown Venipuncture / Unknown 05/10/2024 5:41 AM EDT 05/10/2024 5:56 AM EDT us Maite Austin MD LAB BLOOD ORDERABLES Final Resu lt [facility] [address] [place] [address] * (ABNORMAL) POCT glucose meter (05/10/2024 12:09 [...] Comment 05/10/2024 12:10 AM EDT [facility] Hot [employer] Offbearer ID Betty Young 025 12:10 AM EDT [facility] LAB Device ID [id number] 05/10/2024 12:10 AM EDT [facility] Specimen Type POC Capillary 05/10/2024 12:10 AM EDT [facility] Blood Capillary blood specimen / Unknown 05/10/2024 12:09 AM EDT 05/10/2024 12:10 AM EDT us Maite Austin MD LAB POINT OF CARE TE ST DOCKED DEVICE UNSOLICITED RESULTS Final Result Performing Organization Address City/[facility] Co de Phone Number [facility] [address] [place] [address] * POCT glucose meter (05/09/2024 5:15 PM EDT) POCT Glucose 89 74 - 99 mg/dL [...] 05/09/2024 5:17 PM EDT [facility] [employer] Offbearer ID Luca Em 05/10/19 5:17 PM EDT [facility] Device ID [id number] 05/09/2024 5:17 PM EDT [facility] Specimen Type POC Capillary 05/09/2024 5:17 PM EDT [facility] Blood Capillary blood specimen / Unknown 05/09/2024 5:15 PM EDT 05/09/2024 5:17 PM EDT Maite Austin MD LAB POINT OF CARE TE ST DOCKED DEVICE UNSOLICITED RESULTS Final Result Performing Organization Address City/[facility] Co de Phone Number [facility] [address] [place] [address] * CT Abdomen Pelvis wo IV Contrast [...] Abdominal radiograph 3 hours prior FINDINGS: Limited [id number] abdominal radiograph for the purpose of locating [...] Abdominal radiograph 3 hours prior FINDINGS: Limited [id number] abdominal radiograph for the purpose of locatingtube [...] - 80 % 05/09/2024 3:17 PM EDT [facility] Base Excess/Deficit, Venous 3.6(H) -2 - 3 mmol/L 05/09/2024 3:17 PM EDT [facility] HCO3, Venous 28.5(H) 22 - 26 mmol/L 05/09/2024 3:17 PM EDT [facility] Hemoglobin, Venous 9.7(L) 11.2 - 15.7 g/dL 05/09/2024 3:17 PM EDT [facility] Hematocrit, Venous 29.0(L) 34.0 - 45.0 % 05/09/2024 3:17 PM EDT [facility] Sodium, Venous 143 136 - 145 mmol/L 05/09/2024 3:17 PM EDT [facility] Potassium, Venous 4.1 3.6 - 4.9 mmol/L 05/09/2024 3:17 PM EDT [facility] POCT Chloride, Venous 107 97 - 107 mmol/L 05/09/2024 3:17 PM EDT [facility] Glucose, Venous 89 74 - 99 mg/dL 05/09/2024 3:17 PM EDT [facility] Ionized Calcium, Venous 4.4(L) 4.6 - 5.1 mg/dL 05/09/2024 3:17 PM EDT [facility] Lactate, Venous 3.3(H) 0.5 - 2.2 mmol/L 05/09/2024 3:17 PM EDT [facility] Body Temperature 37.0 Celsius 05/09/2024 3:17 PM EDT [facility] pH, Temp Corrected, Venous 7.42 7.32 - 7.43 05/09/2024 3:17 PM EDT [facility] pCO2, Temp Corrected, Venous 44 37 - 52 mm Hg 05/09/2024 3:17 PM EDT [facility] Hot [employer] Offbearer ID Alka Corona 05/09/2024 3:17 PM EDT [facility] Acknowledged, Notified By RN 05/09/2024 3:17 PM EDT [facility] Critical Notify Time 1515 05/09/2024 3:17 PM EDT [facility] Critical Readback Y 05/09/2024 3:17 PM EDT [facility] Blood, Venous Whole blood specimen / Unknown 05/09/2024 3:15 PM EDT 05/09/2024 3:17 PM EDT Maite Austin MD LAB POINT OF CARE TE ST DOCKED DEVICE UNSOLICITED RESULTS Final Result Performing Organization Address City/[facility]/ZIP Co de Phone Number [facility] [address] [place] [address] * POCT glucose meter (05/09/2024 2:21 PM EDT) [facility] POCT Glucose 93 74 - 99 mg/dL [...] for testing. Comment 05/09/2024 2:22 PM EDT [facility] Hot Plate [employer] Offbearer ID Luca Em 05/10/19 2:22 PM EDT HEALTHCARE LAB Device ID [id number] 05/09/2024 2:22 PM EDT [facility] Specimen Type POC Venous 05/09/2024 2:22 PM EDT [facility] Blood Venous blood specimen / Unknown 05/09/2024 2:21 PM EDT 05/09/2024 2:22 PM EDT Maite Austin MD LAB POINT OF CARE TE ST DOCKED DEVICE UNSOLICITED RESULTS Final Result Performing Organization Address City/[facility] Co de Phone Number [facility] [address] [place] [address] * (ABNORMAL) Hemoglobin and hematocrit, blood (05/09/2024 2:21 PM EDT) [facility] HGB 9.8(L) 11.2 - 15.7 g/dL LAB HEMATOLOGY METHOD 05/09/2024 3:09 PM EDT [facility] HCT 28.0(L) 34.0 - 45.0 % LAB HEMATOLOGY METHOD 05/09/2024 3:09 PM EDT [facility] Blood Venous blood specimen / Unknown Venipuncture / Unknown 05/09/2024 2:21 PM EDT 05/09/2024 2:27 PM EDT us Maite Austin MD LAB BLOOD ORDERABLES Final Resu lt Performing Organization Address City/[facility]/ZIP Co de Phone Number [facility] [address] [place] [address] * POCT glucose meter (05/09/2024 12:42 PM EDT) POCT Glucose 97 74 - [...] Comment 05/09/2024 12:43 PM EDT [facility] Hot [employer] Offbearer ID Katie Quiroz 05/09/2024 12:43 PM EDT [facility] LAB Device ID [id number] 05/09/2024 12:43 PM EDT [facility] Specimen Type POC Venous 05/09/2024 12:43 PM EDT [facility] Blood Venous blood specimen / Unknown 05/09/2024 12:42 PM EDT 05/09/2024 12:43 PM EDT us Maite Austin MD LAB POINT OF CARE TE ST DOCKED DEVICE UNSOLICITED RESULTS Final Result Performing Organization Address City/[facility] Co de Phone Number [facility] [address] [place] [address] * XR Abdomen 1 View (05/09/2024 12:21 [...] MD on 05/09/2024 1:59 PM Reyna Obregon [employer] IMG XR PROCEDURES Final R esult * (ABNORMAL) POCT glucose meter (05/09/2024 12:18 PM EDT) POCT Glucose 105(H) 74 - 99 mg/dL 05/09/2024 12:20 PM EDT [facility] Comment:Accuracy of a glucos e result [...] 05/09/2024 12:20 PM EDT [facility] [employer] Offbearer ID Luca Em 05/10/19 12:20 PM EDT [facility] Device ID [id number] 05/09/2024 12:20 PM EDT [facility] Specimen Type POC Venous 05/09/2024 12:20 PM EDT [facility] Blood Venous blood specimen / Unknown 05/09/2024 12:18 PM EDT 05/09/2024 12:20 PM EDT Maite Austin MD LAB POINT OF CARE TE ST DOCKED DEVICE UNSOLICITED RESULTS Final Result Performing Organization Address City/[facility]/ZIP Co de Phone Number [facility] [address] [place] [address] * (ABNORMAL) POCT glucose meter (05/09/2024 12:06 [...] for testing. Comment 05/09/2024 12:19 PM EDT [facility] [employer] Offbearer ID Luca Em 05/10/19 12:19 PM EDT [facility] Device ID [id number] 05/09/2024 12:19 PM EDT [facility] Specimen Type POC Capillary 05/09/2024 12:19 PM EDT [facility] Blood Capillary blood specimen / Unknown 05/09/2024 12:06 PM EDT 05/09/2024 12:19 PM EDT us Maite Austin MD LAB POINT OF CARE TE ST DOCKED DEVICE UNSOLICITED RESULTS Final Result Performing Organization Address City/[facility] Co de Phone Number [facility] [address] [place] [address] * (ABNORMAL) POCT glucose meter (05/09/2024 12:05 PM EDT) POCT Glucose 198(H) 74 - 99 mg/dL [...] Comment 05/09/2024 12:06 PM EDT [facility] Hot [employer] Offbearer ID Luca Em 05/10/19 12:06 PM EDT [facility] LAB Device ID [id number] 05/09/2024 12:06 PM EDT [facility] Specimen Type POC Capillary 05/09/2024 12:06 PM EDT [facility] Blood Capillary blood specimen / Unknown 05/09/2024 12:05 PM EDT 05/09/2024 12:06 PM EDT Maite Austin MD LAB POINT OF CARE TE ST DOCKED DEVICE UNSOLICITED RESULTS Final Result Performing Organization Address City/State/[facility] Co de Phone Number [facility] LAB [address] [place] [address] * (ABNORMAL) POCT glucose meter (05/09/2024 12:02 PM EDT) [facility] POCT Glucose 42(LL) 74 - 99 mg/dL [...] Comment 05/09/2024 12:03 PM EDT [facility] Hot Plate [employer] Offbearer ID Luca Em 05/10/19 12:03 PM EDT [facility] LAB Device ID [id number] 05/09/2024 12:03 PM EDT [facility] LAB Specimen Type POC Capillary 05/09/2024 12:03 PM EDT [facility] Blood Capillary blood specimen / Unknown 05/09/2024 12:02 PM EDT 05/09/2024 12:03 PM EDT us Maite Austin MD LAB POINT OF CARE TE ST DOCKED DEVICE UNSOLICITED RESULTS Final Result Performing Organization Address City/[facility]/ZIP Co de Phone Number [facility] [address] [place] [address] * (ABNORMAL) POCT glucose meter (05/09/2024 12:00 PM EDT) POCT Glucose 37(LL) 74 - 99 mg/dL 05/09/2024 12:01 PM EDT [facility] Comment:Accuracy of a [...] Comment 05/09/2024 12:01 PM EDT [facility] Hot [employer] Offbearer ID Luca Em 05/10/19 12:01 PM EDT [facility] LAB Device ID [id number] 05/09/2024 12:01 PM EDT [facility] Specimen Type POC Capillary 05/09/2024 12:01 PM EDT [facility] Blood Capillary blood specimen / Unknown 05/09/2024 12:00 PM EDT 05/09/2024 12:01 PM EDT us Maite Austin MD LAB POINT OF CARE TE ST DOCKED DEVICE UNSOLICITED RESULTS Final Result Performing Organization Address City/[facility] Co de Phone Number [facility] [address] [place] [address] * POCT glucose meter (05/09/2024 11:32 AM EDT) POCT Glucose 77 74 - [...] for testing. Comment 05/09/2024 11:33 AM EDT [facility] [employer] Offbearer ID Luca Em 05/10/19 11:33 AM EDT HEALTH[facility]ARE LAB Device ID [id number] 05/09/2024 11:33 AM EDT [facility] Specimen Type POC Venous 05/09/2024 11:33 AM EDT [facility] Blood Venous blood specimen / Unknown 05/09/2024 11:32 AM EDT 05/09/2024 11:33 AM EDT us Maite Austin MD LAB POINT OF CARE TE ST DOCKED DEVICE UNSOLICITED RESULTS Final Result Performing Organization Address City/[facility]/ZIP Co de Phone Number [facility] [address] [place] [address] * BETA HYDROXYBUTYRIC ACID (05/09/2024 11:30 AM EDT) Beta-Hydroxybut yric Acid, Plasma 0.1 <=0.27 mmol/L 05/09/2024 6:19 PM EDT [facility] Blood Venous blood specimen / Unknown Venipuncture / Unknown 05/09/2024 11:30 AM EDT 05/09/2024 12:34 PM EDT us Gregg Burdick MD LAB BLOOD ORDERABLES Final Resu lt Performing Organization Address [facility] Co de Phone Number [facility] [address] [place] [address] * Phosphorus, Plasma (05/09/2024 11:30 AM EDT) Phosphorus, Plasma 3.8 2.5 - 4.5 mg/dL 05/09/2024 1:20 PM EDT [facility] Blood Venous blood specimen / Unknown Venipuncture / Unknown 05/09/2024 11:30 AM EDT 05/09/2024 12:34 PM EDT us Maite Austin MD LAB BLOOD ORDERABLES Final Resu lt Performing Organization Address City/[facility]/ZIP Co de Phone Number [facility] [address] [place] [address] * (ABNORMAL) Basic Metabolic Panel, Plasma (05/09/2024 11:30 AM EDT) Glucose, Plasma 83 74 - 99 mg/dL 05/09/2024 1:20 PM EDT [facility] BUN, Plasma 33(H) 7 - 21 mg/dL 05/09/2024 1:20 PM EDT [facility] Creatinine, Plasma 1.62(H) 0.60 - 1.10 mg/dL 05/09/2024 1:20 PM EDT [facility] BUN/Creatinine Ratio 20 05/09/2024 1:20 PM EDT [facility] Sodium, Plasma 145 136 - 145 mmol/L 05/09/2024 1:20 PM EDT [facility] Potassium, Plasma 3.8 3.6 - 4.9 mmol/L 05/09/2024 1:20 PM EDT [facility] Chloride, Plasma 106 97 - 107 mmol/L 05/09/2024 1:20 PM EDT [facility] CO2, Plasma 25 22 - 29 mmol/L 05/09/2024 1:20 PM EDT [facility] Anion Gap 14 6 - 16 mmol/L 05/09/2024 1:20 PM EDT [facility] Total Calcium, Plasma 8.1(L) 8.9 - 10.2 mg/dL 05/09/2024 1:20 PM EDT [facility] eGFRcr 37.6 mL/min/1.7 3m*2 05/09/2024 1:20 PM EDT [facility] Comment:Reported eGFRcr in m L/min/1.73m2 is based the CKD-EPI 2020 equation that does not use a race coefficient. Blood Venous blood specimen / Unknown Venipuncture / Unknown 05/09/2024 11:30 AM EDT 05/09/2024 12:34 PM EDT us aMite Austin MD LAB BLOOD ORDERABLES Final Resu lt [facility] [address] [place] [address] * (ABNORMAL) Magnesium (05/09/2024 11:30 AM EDT) Magnesium, Plasma 2.8(H) 1.9 - 2.4 mg/dL 05/09/2024 1:20 PM EDT [facility] Blood Venous blood specimen / Unknown Venipuncture / Unknown 05/09/2024 11:30 AM EDT 05/09/2024 12:34 PM EDT Maite Austin MD LAB BLOOD ORDERABLES Final Resu lt Performing Organization Address [facility]/ZIP Co de Phone Number [facility] [address] [place] [address] * (ABNORMAL) Prealbumin (05/09/2024 11:30 AM EDT) Prealbumin, Plasma 6.5(L) 20.0 - 41.0 mg/dL 05/09/2024 1:20 PM EDT [facility] Blood Venous blood specimen / Unknown Venipuncture / Unknown 05/09/2024 11:30 AM EDT 05/09/2024 12:34 PM EDT Maite Austin MD LAB BLOOD ORDERABLES Final Resu lt Performing Organization Address City/[facility] Co de Phone Number [facility] [address] [place] [address] * (ABNORMAL) Hepatic function panel (05/09/2024 11:30 AM EDT) Conjugated Bilirubin, Plasma 0.3 <=0.3 mg/dL 05/09/2024 1:20 PM EDT [facility] Alkaline Phosphatase, Plasma 101 35 - 104 U/L 05/09/2024 1:20 PM EDT [facility] Total Bilirubin, Plasma 0.8 0.2 - 1.1 mg/dL 05/09/2024 1:20 PM EDT [facility] Albumin, Plasma 2.8(L) 3.5 - 5.2 g/dL 05/09/2024 1:20 PM EDT [facility] Total Protein 5.4(L) 6.3 - 7.9 g/dL 05/09/2024 1:20 PM EDT [facility] ALT, Plasma 54(H) 10 - 35 U/L 05/09/2024 1:20 PM EDT [facility] AST, Plasma 255(H) 10 - 35 U/L 05/09/2024 1:20 PM EDT [facility] Comment:Hemolyzed, result ma y be falsely increased. Blood Venous blood specimen / Unknown Venipuncture / Unknown 05/09/2024 11:30 AM EDT 05/09/2024 12:34 PM EDT us Reyna Obregon [employer] LAB BLOOD ORDERABLES Namrata l Result [facility] [address] [place] [address] * [place] CRITICAL CARE, ADDL 30 MIN (05/09/2024 11:17 [...] Comment 05/09/2024 11:08 AM EDT [facility] [employer] Offbearer ID Luca Em 05/10/19 11:08 AM EDT HEALTHCARE LAB Device ID [id number] 05/09/2024 11:08 AM EDT [facility] LAB Specimen Type POC Capillary 05/09/2024 11:08 AM EDT [facility] Blood Capillary blood specimen / Unknown 05/09/2024 11:06 AM EDT 05/09/2024 11:08 AM EDT us Maite Austin MD LAB POINT OF CARE TE ST DOCKED DEVICE UNSOLICITED RESULTS Final Result Performing Organization Address City/State/[facility] Co de Phone Number HEALTH[facility]ARE LAB [address] [place] [address] * PERIPHERAL IV (SMARTFORM LINK) (05/09/2024 10:10 [...] POCT glucose meter (05/09/2024 10:06 AM EDT) [facility] POCT Glucose 137(H) 74 - 99 mg/dL 05/09/2024 10:08 AM EDT [facility] Comment:Accuracy of [...] Comment 05/09/2024 10:08 AM EDT [facility] Hot [employer] Offbearer ID Luca Em 05/10/19 25 10:08 AM EDT [facility]ALTH[facility]ARE LAB Device ID [id number] 05/09/2024 10:08 AM EDT [facility] Specimen Type POC Capillary 05/09/2024 10:08 AM EDT [facility] Blood Capillary blood specimen / Unknown 05/09/2024 10:06 AM EDT 05/09/2024 10:08 AM EDT Maite Austin MD LAB POINT OF CARE TE ST DOCKED DEVICE UNSOLICITED RESULTS Final Result Performing Organization Address City/State/[facility] Co de Phone Number [facility]ARE [facility] [address] [place] [address] * (ABNORMAL) POCT glucose meter (05/09/2024 9:48 AM EDT) [facility] POCT Glucose 222(H) 74 - 99 mg/dL [...] 05/09/2024 9:49 AM EDT [facility] [employer] Offbearer ID Rosmery Oneal 025 9:49 AM EDT [facility]ALTH[facility]ARE LAB Device ID [id number] 05/09/2024 9:49 AM EDT [facility] Specimen Type POC Capillary 05/09/2024 9:49 AM EDT [facility] Blood Capillary blood specimen / Unknown 05/09/2024 9:48 AM EDT 05/09/2024 9:49 AM EDT us Maite Austin MD LAB POINT OF CARE TE ST DOCKED DEVICE UNSOLICITED RESULTS Final Result [facility] [address] [place] [address] * XR Chest 1 View (05/09/2024 9:33 [...] ECG Atrial Rate 113 BPM MUSE ECG TN Interval 122 ms MUSE ECG QRSD Interval 108 ms MUSE ECG QT Interval 386 ms MUSE ECG QTC Interval 529 ms MUSE ECG P [place] 41 degrees MUSE ECG R [place] 61 degrees MUSE ECG T Wave [place] 27 degrees MUSE ECG Diagnosis Poor data quality, interpretation may be adversely affected MUSE ECG Diagnosis Sinus tachycardia MUSE ECG Diagnosis Low voltage QRS MUSE ECG Diagnosis Incomplete right bundle branch block MUSE ECG Diagnosis Prolonged QT MUSE ECG Diagnosis Abnormal ECG MUSE ECG Diagnosis MUSE ECG Diagnosis Confirmed by Graham Singleton ([id number]) on 05/09/2024 1:36:01 PM MUSE ECG 05/09/2024 9:30 AM EDT 05/09/2024 1:36 PM EDT Maite Austin MD ECG ORDERABLES Final Result MUSE ECG * POCT glucose meter (05/09/2024 9:26 AM EDT) Pathologist [facility] POCT Glucose 77 74 - 99 mg/dL 05/09/2024 9:36 AM EDT [facility] Comment:Accuracy of a glucos e result [...] Comment 05/09/2024 9:36 AM EDT [facility] [employer] Offbearer ID Luca Em 05/10/19 9:36 AM EDT HEALTHCARE LAB Device ID [id number] 05/09/2024 9:36 AM EDT [facility]ALTH[facility]ARE LAB Specimen Type POC Capillary 05/09/2024 9:36 AM EDT [facility] Blood Capillary blood specimen / Unknown 05/09/2024 9:26 AM EDT 05/09/2024 9:36 AM EDT us Maite Austin MD LAB POINT OF CARE TE ST DOCKED DEVICE UNSOLICITED RESULTS Final Result Performing Organization Address City/[facility] Co ks Phone Number HEALTHCARE LAB [address] [place] [address] * (ABNORMAL) POCT glucose meter (05/09/2024 9:08 AM EDT) [facility] POCT Glucose 64(L) 74 - 99 mg/dL [...] Comment 05/09/2024 9:09 AM EDT [facility] [employer] Offbearer ID Luca Em 05/10/19 9:09 AM EDT HEALTHCARE LAB Device ID [id number] 05/09/2024 9:09 AM EDT [facility] LAB Specimen Type POC Capillary 05/09/2024 9:09 AM EDT [facility] Blood Capillary blood specimen / Unknown 05/09/2024 9:08 AM EDT 05/09/2024 9:09 AM EDT us Maite Austin MD LAB POINT OF CARE TE ST DOCKED DEVICE UNSOLICITED RESULTS Final Result [facility] [address] [place] [address] * (ABNORMAL) POCT glucose meter (05/09/2024 8:42 AM EDT) [facility] POCT Glucose 42(LL) 74 - 99 mg/dL [...] for testing. Comment 05/09/2024 8:44 AM EDT [facility] [employer] Offbearer ID Luca Em 05/10/19 8:44 AM EDT [facility] Device ID [id number] 05/09/2024 8:44 AM EDT [facility] Specimen Type POC Capillary 05/09/2024 8:44 AM EDT [facility] Blood Capillary blood specimen / Unknown 05/09/2024 8:42 AM EDT 05/09/2024 8:44 AM EDT Maite Austin MD LAB POINT OF CARE TE ST DOCKED DEVICE UNSOLICITED RESULTS Final Result Performing Organization Address City/[facility]/ZIP Co de Phone Number [facility] [address] [place] [address] * (ABNORMAL) POCT glucose meter (05/09/2024 8:39 AM EDT) [facility] POCT Glucose 44(LL) 74 - 99 mg/dL [...] for testing. Comment 05/09/2024 8:41 AM EDT [facility] [employer] Offbearer ID Luca Em 05/10/19 8:41 AM EDT [facility] Device ID [id number] 05/09/2024 8:41 AM EDT [facility] Specimen Type POC Capillary 05/09/2024 8:41 AM EDT [facility] Blood Capillary blood specimen / Unknown 05/09/2024 8:39 AM EDT 05/09/2024 8:41 AM EDT us Maite Austin MD LAB POINT OF CARE TE ST DOCKED DEVICE UNSOLICITED RESULTS Final Result Performing Organization Address City/State/[facility] Co de Phone Number [facility] [address] [place] [address] * Transfuse RBC (05/09/2024 7:01 AM EDT) Result Anastasiia Austin MD BLOOD TRANSFUSION ORDERABLES Fi nal Result * Transfuse RBC: 1 Units (05/09/2024 7:01 AM EDT) Result Anastasiia Austin MD BLOOD TRANSFUSION ORDERABLES Fi nal Result * POCT glucose meter (05/09/2024 3:01 AM EDT) [facility] POCT Glucose 97 74 - 99 mg/dL [...] 05/09/2024 3:03 AM EDT [facility] [employer] Offbearer ID Betty Young 025 3:03 AM EDT HEALTHCARE LAB Device ID [id number] 05/09/2024 3:03 AM EDT [facility]ALTH[facility]ARE LAB Specimen Type POC Venous 05/09/2024 3:03 AM EDT [facility] Blood Venous blood specimen / Unknown 05/09/2024 3:01 AM EDT 05/09/2024 3:03 AM EDT us Maite Austin MD LAB POINT OF CARE TE ST DOCKED DEVICE UNSOLICITED RESULTS Final Result Performing Organization Address [facility] Co de Phone Number [facility] [address] [place] [address] * Type and screen (05/09/2024 2:24 AM EDT) [facility] ABO/Rh B Positive 05/09/2024 1:51 AM EDT BLOOD BANK Antibody Screen Negative 05/09/2024 1:51 AM EDT BLOOD BANK Specimen Expiration 05/12/2024 23:59 05/09/2024 1:51 AM EDT BLOOD BANK Blood Venous blood specimen / Unknown Venipuncture / Unknown 05/09/2024 2:24 AM EDT 05/09/2024 2:32 AM EDT us Maite Austin MD LAB BLOOD BANK TEST ORDERABLES Final Result Performing Organization Address [facility] de Phone Number BLOOD BANK [address] [place] [address], * POCT glucose meter (05/09/2024 2:22 AM EDT) [facility] POCT Glucose 82 74 - 99 mg/dL [...] 05/09/2024 2:23 AM EDT [facility] [employer] Offbearer ID Betty Young [id number] 2:23 AM EDT [facility] Device ID [id number] 05/09/2024 2:23 AM EDT [facility] Specimen Type POC Venous 05/09/2024 2:23 AM EDT [facility] Blood Venous blood specimen / Unknown 05/09/2024 2:22 AM EDT 05/09/2024 2:23 AM EDT us Maite Austin MD LAB POINT OF CARE TE ST DOCKED DEVICE UNSOLICITED RESULTS Final Result Performing Organization Address [facility] Co de Phone Number HEALTHCARE [facility] [address] [place] [address] * Prepare Leukocyte Reduced RBC: 1 Units (05/09/2024 1:51 AM EDT) Product Code [id number] CH BLOO D BANK Dispense Status Transfused BLOOD BANK Blood Expiration Date [id number] BLOOD BANK Unit Number [id number] CH B LOOD BANK Product Blood Type 7300 BLOOD BANK Blood Type B+ BLOOD BANK Crossmatch Compatible BLOOD BANK Other Maite Austin MD BLOOD BANK PRODUCT ORDERABLES F inal Result Performing Organization Address [facility] Co de Phone Number BLOOD BANK [address] [place] [address] * (ABNORMAL) Alanine Aminotransferase, Plasma (05/09/2024 12:52 AM EDT) ALT, Plasma 84(H) 10 - 35 U/L 05/09/2024 1:31 PM EDT [facility] Blood Venous blood specimen / Unknown Venipuncture / Unknown 05/09/2024 12:52 AM EDT 05/09/2024 12:57 AM EDT Maite Austin MD LAB BLOOD ORDERABLES Final Resu lt Performing Organization Address [facility] Co de Phone Number [facility] [address] [place] [address] * (ABNORMAL) Aspartate Aminotransferase, Plasma (05/09/2024 12:52 AM EDT) AST, Plasma 296(H) 10 - 35 U/L 05/09/2024 1:31 PM EDT [facility] Blood Venous blood specimen / Unknown Venipuncture / Unknown 05/09/2024 12:52 AM EDT 05/09/2024 12:57 AM EDT Maite Austin MD LAB BLOOD ORDERABLES Final Resu lt [facility] [address] [place] [address] * (ABNORMAL) Basic metabolic panel (05/09/2024 12:52 AM EDT) Glucose, Plasma 78 74 - 99 mg/dL 05/09/2024 1:25 AM EDT [facility] BUN, Plasma 35(H) 7 - 21 mg/dL 05/09/2024 1:25 AM EDT [facility] Creatinine, Plasma 1.72(H) 0.60 - 1.10 mg/dL 05/09/2024 1:25 AM EDT [facility] BUN/Creatinine Ratio 20 05/09/2024 1:25 AM EDT [facility] Sodium, Plasma 143 136 - 145 mmol/L 05/09/2024 1:25 AM EDT [facility] Potassium, Plasma 4.7 3.6 - 4.9 mmol/L 05/09/2024 1:25 AM EDT [facility] Chloride, Plasma 107 97 - 107 mmol/L 05/09/2024 1:25 AM EDT [facility] CO2, Plasma 25 22 - 29 mmol/L 05/09/2024 1:25 AM EDT [facility] Anion Gap 11 6 - 16 mmol/L 05/09/2024 1:25 AM EDT [facility] Total Calcium, Plasma 8.1(L) 8.9 - 10.2 mg/dL 05/09/2024 1:25 AM EDT [facility] eGFRcr 35.0 mL/min/1.7 3m*2 05/09/2024 1:25 AM EDT [facility] Comment:Reported eGFRcr in m L/min/1.73m2 is based the CKD-EPI 2020 equation that does not use a race coefficient. Blood Venous blood specimen / Unknown Venipuncture / Unknown 05/09/2024 12:52 AM EDT 05/09/2024 12:57 AM EDT us Maite Austin MD LAB BLOOD ORDERABLES Final Resu lt [facility] [address] [place] [address] * (ABNORMAL) Hemogram (CBC) (05/09/2024 12:52 AM EDT) WBC Count 16.81(H) 3.70 - 10.30 10*3/uL LAB HEMATOLOGY METHOD 05/09/2024 1:05 AM EDT [facility] RBC Count 2.62(L) 3.90 - 5.20 10*6/uL LAB HEMATOLOGY METHOD 05/09/2024 1:05 AM EDT [facility] HGB 7.6(L) 11.2 - 15.7 g/dL LAB HEMATOLOGY METHOD 05/09/2024 1:05 AM EDT [facility] HCT 22.5(L) 34.0 - 45.0 % LAB HEMATOLOGY METHOD 05/09/2024 1:05 AM EDT [facility] Platelet Count 129(L) 155 - 369 10*3/uL LAB HEMATOLOGY METHOD 05/09/2024 1:05 AM EDT [facility] MCV 86 79 - 98 fL LAB HEMATOLOGY METHOD 05/09/2024 1:05 AM EDT [facility] MCH 29.0 26.0 - 32.0 pg LAB HEMATOLOGY METHOD 05/09/2024 1:05 AM EDT [facility] MCHC 33.8 30.7 - 35.5 g/dL LAB HEMATOLOGY METHOD 05/09/2024 1:05 AM EDT [facility] RDW 16.9(H) 11.5 - 14.5 % LAB HEMATOLOGY METHOD 05/09/2024 1:05 AM EDT [facility] MPV 11.1 8.8 - 12.5 fL LAB HEMATOLOGY METHOD 05/09/2024 1:05 AM EDT [facility] nRBC 0.7(H) <=0.0 per 100 WBCs LAB HEMATOLOGY METHOD 05/09/2024 1:05 AM EDT [facility] Blood Venous blood specimen / Unknown Venipuncture / Unknown 05/09/2024 12:52 AM EDT 05/09/2024 12:57 AM EDT us Matie Austin MD LAB BLOOD ORDERABLES Final Resu lt Performing Organization Address City/[facility]/ZIP Co de Phone Number [facility] [address] [place] [address] * POCT glucose meter (05/08/2024 10:15 PM EDT) [facility] POCT Glucose 95 74 - 99 mg/dL [...] Comment 05/08/2024 10:17 PM EDT HEALTHCARE [facility] Hot [employer] Offbearer ID Katya Reyes 05/08/2024 10:17 PM EDT HEALTHCARE LAB Device ID [id number] 05/08/2024 10:17 PM EDT [facility]ALTH[facility]ARE LAB Specimen Type POC Venous 05/08/2024 10:17 PM EDT [facility] Blood Venous blood specimen / Unknown 05/08/2024 10:15 PM EDT 05/08/2024 10:17 PM EDT us Maite Austin MD LAB POINT OF CARE TE ST DOCKED DEVICE UNSOLICITED RESULTS Final Result Performing Organization Address [facility] Co de Phone Number [facility] [address] [place] [address] * POCT glucose meter (05/08/2024 10:14 PM EDT) [facility] POCT Glucose 05/18/2024 9:43 AM EDT [facility] [...] 2215 EDT. Comment 05/18/2024 9:43 AM EDT HEALTHCARE LAB Hot Plate [employer] Offbearer ID Katya Reyes 05/18/2024 9:43 AM EDT HEALTHCARE LAB Device ID [id number] 05/18/2024 9:43 AM EDT HEALTHCARE LAB Specimen Type POC Capillary 05/18/2024 9:43 AM EDT [facility] Blood Capillary blood specimen / Unknown 05/08/2024 10:14 PM EDT 05/08/2024 10:15 PM EDT Narrative [facility] - 05/18/2024 9:43 AM EDT Testing error per wing bennett csn us Maite Austin MD LAB POINT OF CARE TE ST DOCKED DEVICE UNSOLICITED RESULTS Edited Result - Final [facility]ARE [facility] [address] [place] [id number] * (ABNORMAL) CBC W/O Differential (05/08/2024 5:02 PM EDT) WBC Count 16.56(H) 3.70 - 10.30 10*3/uL LAB HEMATOLOGY METHOD 05/08/2024 5:23 PM EDT [facility] RBC Count 2.77(L) 3.90 - 5.20 10*6/uL LAB HEMATOLOGY METHOD 05/08/2024 5:23 PM EDT [facility] HGB 8.2(L) 11.2 - 15.7 g/dL LAB HEMATOLOGY METHOD 05/08/2024 5:23 PM EDT [facility] HCT 24.0(L) 34.0 - 45.0 % LAB HEMATOLOGY METHOD 05/08/2024 5:23 PM EDT [facility] Platelet Count 143(L) 155 - 369 10*3/uL LAB HEMATOLOGY METHOD 05/08/2024 5:23 PM EDT [facility] MCV 87 79 - 98 fL LAB HEMATOLOGY METHOD 05/08/2024 5:23 PM EDT [facility] MCH 29.6 26.0 - 32.0 pg LAB HEMATOLOGY METHOD 05/08/2024 5:23 PM EDT [facility] MCHC 34.2 30.7 - 35.5 g/dL LAB HEMATOLOGY METHOD 05/08/2024 5:23 PM EDT [facility] RDW 17.0(H) 11.5 - 14.5 % LAB HEMATOLOGY METHOD 05/08/2024 5:23 PM EDT [facility] MPV 11.3 8.8 - 12.5 fL LAB HEMATOLOGY METHOD 05/08/2024 5:23 PM EDT [facility] nRBC 0.6(H) <=0.0 per 100 WBCs LAB HEMATOLOGY METHOD 05/08/2024 5:23 PM EDT [facility] Blood Venous blood specimen / Unknown Venipuncture / Unknown 05/08/2024 5:02 PM EDT 05/08/2024 5:14 PM EDT us Maite Austin MD LAB BLOOD ORDERABLES Final Resu lt Performing Organization Address City/[facility]/ZIP Co de Phone Number [facility] [address] [place] [address] * (ABNORMAL) Magnesium (05/08/2024 5:01 PM EDT) Magnesium, Plasma 2.8(H) 1.9 - 2.4 mg/dL 05/08/2024 5:44 PM EDT [facility] Blood Venous blood specimen / Unknown Venipuncture / Unknown 05/08/2024 5:01 PM EDT 05/08/2024 5:15 PM EDT us Maite Austin MD LAB BLOOD ORDERABLES Final Resu lt [facility] [address] [place] [address] * (ABNORMAL) Renal function panel (05/08/2024 5:01 PM EDT) Glucose, Plasma 102(H) 74 - 99 mg/dL 05/08/2024 5:44 PM EDT [facility] BUN, Plasma 34(H) 7 - 21 mg/dL 05/08/2024 5:44 PM EDT [facility] Creatinine, Plasma 1.80(H) 0.60 - 1.10 mg/dL 05/08/2024 5:44 PM EDT [facility] BUN/Creatinine Ratio 19 05/08/2024 5:44 PM EDT [facility] Sodium, Plasma 145 136 - 145 mmol/L 05/08/2024 5:44 PM EDT [facility] Potassium, Plasma 5.1(H) 3.6 - 4.9 mmol/L 05/08/2024 5:44 PM EDT [facility] Chloride, Plasma 108(H) 97 - 107 mmol/L 05/08/2024 5:44 PM EDT [facility] CO2, Plasma 22 22 - 29 mmol/L 05/08/2024 5:44 PM EDT [facility] Anion Gap 15 6 - 16 mmol/L 05/08/2024 5:44 PM EDT [facility] Total Calcium, Plasma 8.2(L) 8.9 - 10.2 mg/dL 05/08/2024 5:44 PM EDT [facility] Phosphorus, Plasma 5.5(H) 2.5 - 4.5 mg/dL 05/08/2024 5:44 PM EDT [facility] Albumin, Plasma 2.8(L) 3.5 - 5.2 g/dL 05/08/2024 5:44 PM EDT [facility] eGFRcr 33.1 mL/min/1.7 3m*2 05/08/2024 5:44 PM EDT [facility] Comment:Reported eGFRcr in m L/min/1.73m2 is based the CKD-EPI 2020 equation that does not use a race coefficient. Blood Venous blood specimen / Unknown Venipuncture / Unknown 05/08/2024 5:01 PM EDT 05/08/2024 5:15 PM EDT us Maite Austin MD LAB BLOOD ORDERABLES Final Resu lt [facility] [address] [place] [address] * [place] [facility], ADDL 30 MIN (05/08/2024 1:26 [...] 05/08/2024 12:24 PM EDT [facility] [employer] Offbearer ID Hernández, Melisa 05/08/2024 12:24 PM EDT HEALTHCARE LAB Device ID [id number] 05/08/2024 12:24 PM EDT [facility]ALTH[facility]ARE LAB Specimen Type POC Arterial 05/08/2024 12:24 PM EDT [facility] Blood Arterial blood specimen / Unknown 05/08/2024 12:23 PM EDT 05/08/2024 12:24 PM EDT us Maite Austin MD LAB POINT OF CARE TE ST DOCKED DEVICE UNSOLICITED RESULTS Final Result [facility] [address] [place] [address] * (ABNORMAL) POCT glucose meter (05/08/2024 9:29 AM EDT) [facility] POCT Glucose 101(H) 74 - 99 mg/dL [...] for testing. Comment 05/08/2024 9:36 AM EDT [facility] Hot [employer] Offbearer ID Melisa Hernández 05/08/2024 9:36 AM EDT HEALTHCARE LAB Device ID [id number] 05/08/2024 9:36 AM EDT HEALTHCARE LAB Specimen Type POC Arterial 05/08/2024 9:36 AM EDT [facility]ARE [facility] Blood Arterial blood specimen / Unknown 05/08/2024 9:29 AM EDT 05/08/2024 9:36 AM EDT Maite Austin MD LAB POINT OF CARE TE ST DOCKED DEVICE UNSOLICITED RESULTS Final Result [facility] [address] [place] [address] * (ABNORMAL) POCT glucose meter (05/08/2024 5:54 AM EDT) [facility] POCT Glucose 108(H) 74 - 99 mg/dL [...] for testing. Comment 05/08/2024 5:56 AM EDT [facility] Hot [employer] Offbearer ID Libby Mckeon 05/08/2024 5:56 AM EDT [facility] Device ID [id number] 05/08/2024 5:56 AM EDT HEALTHCARE LAB Specimen Type POC Arterial 05/08/2024 5:56 AM EDT [facility]ARE [facility] Blood Arterial blood specimen / Unknown 05/08/2024 5:54 AM EDT 05/08/2024 5:56 AM EDT us Maite Austin MD LAB POINT OF CARE TE ST DOCKED DEVICE UNSOLICITED RESULTS Final Result [facility] [address] [place] [id number] * XR Chest 1 View (05/08/2024 2:42 [...] 1 VIEW COMPARISON: 05/07/2024 FINDINGS: Interval extubation. [place] catheter has been removed. Right IJ introducer sheath remains in place. Unchanged position of bilateral chest tubes and mediastinal drains. Stable cardiomediastinal silhouette. Interval development of hazy left lung opacities. No large pleural effusion or discrete pneumothorax. Procedure Note Svetlana Scott MD - 05/08/2024 CLINICAL INDICATION: Post op TECHNIQUE: XR CHEST 1 VIEW COMPARISON: 05/07/2024 FINDINGS: Interval extubation. [place] catheter has been removed. Right IJintroducer sheath [...] - 99 mg/dL 05/08/2024 1:28 AM EDT [facility] BUN, Plasma 28(H) 7 - 21 mg/dL 05/08/2024 1:28 AM EDT [facility] Creatinine, Plasma 1.84(H) 0.60 - 1.10 mg/dL 05/08/2024 1:28 AM EDT [facility] BUN/Creatinine Ratio 15 05/08/2024 1:28 AM EDT [facility] Sodium, Plasma 148(H) 136 - 145 mmol/L 05/08/2024 1:28 AM EDT [facility] Potassium, Plasma 4.6 3.6 - 4.9 mmol/L 05/08/2024 1:28 AM EDT [facility] Chloride, Plasma 115(H) 97 - 107 mmol/L 05/08/2024 1:28 AM EDT [facility] CO2, Plasma 20(L) 22 - 29 mmol/L 05/08/2024 1:28 AM EDT [facility] Anion Gap 13 6 - 16 mmol/L 05/08/2024 1:28 AM EDT [facility] Total Calcium, Plasma 8.2(L) 8.9 - 10.2 mg/dL 05/08/2024 1:28 AM EDT [facility] eGFRcr 32.3 mL/min/1.7 3m*2 05/08/2024 1:28 AM EDT [facility] Comment:Reported eGFRcr in m L/min/1.73m2 is based the CKD-EPI 2020 equation that does not use a race coefficient. Blood Venous blood specimen / Unknown Venipuncture / Unknown 05/08/2024 12:46 AM EDT 05/08/2024 12:57 AM EDT us Maite Austin MD LAB BLOOD ORDERABLES Final Resu lt [facility] [address] [place] [address] * (ABNORMAL) Blood gas, arterial (05/08/2024 12:23 AM EDT) pH, Arterial 7.30(L) 7.35 - 7.45 LAB HEMATOLOGY METHOD 05/08/2024 12:32 AM EDT [facility] pCO2, Arterial 47 35 - 48 mmHg LAB HEMATOLOGY METHOD 05/08/2024 12:32 AM EDT [facility] pO2, Arterial 90 83 - 108 mmHg LAB HEMATOLOGY METHOD 05/08/2024 12:32 AM EDT [facility] SO2, Measured, Arterial 98 94 - 98 % LAB HEMATOLOGY METHOD 05/08/2024 12:32 AM EDT [facility] Base Excess, Arterial -3.4(L) -2.0 - 3.0 mmol/L LAB HEMATOLOGY METHOD 05/08/2024 12:32 AM EDT [facility] Bicarbonate, Calculated, Arterial 23 22 - 26 mmol/L LAB HEMATOLOGY METHOD 05/08/2024 12:32 AM EDT [facility] Hematocrit, Whole Blood 27.3(L) 34.0 - 45.0 % LAB HEMATOLOGY METHOD 05/08/2024 12:32 AM EDT [facility] Sodium, Whole Blood 146(H) 136 - 145 mmol/L LAB HEMATOLOGY METHOD 05/08/2024 12:32 AM EDT [facility] Potassium, Whole Blood 4.2 3.6 - 4.9 mmol/L LAB HEMATOLOGY METHOD 05/08/2024 12:32 AM EDT [facility] Chloride, Whole Blood 115(H) 97 - 107 mmol/L LAB HEMATOLOGY METHOD 05/08/2024 12:32 AM EDT [facility] Glucose, Whole Blood 119(H) 74 - 99 mg/dL LAB HEMATOLOGY METHOD 05/08/2024 12:32 AM EDT [facility] Ionized Calcium, Whole Blood 4.7 4.6 - 5.1 mg/dL LAB HEMATOLOGY METHOD 05/08/2024 12:32 AM EDT [facility] Lactate, Arterial, Whole Blood 3.2(H) 0.5 - 1.6 mmol/L LAB HEMATOLOGY METHOD 05/08/2024 12:32 AM EDT [facility] Blood Arterial blood specimen / Unknown Arterial Puncture / Unknown 05/08/2024 12:23 AM EDT 05/08/2024 12:29 AM EDT us Maite Austin MD LAB BLOOD ORDERABLES Final Resu lt Performing Organization Address City/[facility]/ZIP Co de Phone Number [facility] [address] [place] [address] * (ABNORMAL) POCT glucose meter (05/08/2024 12:21 [...] Comment 05/08/2024 12:23 AM EDT HEALTHCARE LAB Hot [employer] Offbearer ID Libby Mckeon 05/08/2024 12:23 AM EDT HEALTHCARE LAB Device ID [id number] 05/08/2024 12:23 AM EDT HEALTHCARE LAB Specimen Type POC Arterial 05/08/2024 12:23 AM EDT [facility] Blood Arterial blood specimen / Unknown 05/08/2024 12:21 AM EDT 05/08/2024 12:23 AM EDT us Maite Austin MD LAB POINT OF CARE TE ST DOCKED DEVICE UNSOLICITED RESULTS Final Result Performing Organization Address City/[facility]/ZIP Co de Phone Number [facility]ARE [facility] [address] [place] [address] * (ABNORMAL) CBC (05/08/2024 12:21 AM EDT) WBC Count 16.25(H) 3.70 - 10.30 10*3/uL LAB HEMATOLOGY METHOD 05/08/2024 1:04 AM EDT [facility] RBC Count 3.09(L) 3.90 - 5.20 10*6/uL LAB HEMATOLOGY METHOD 05/08/2024 1:04 AM EDT [facility] HGB 9.2(L) 11.2 - 15.7 g/dL LAB HEMATOLOGY METHOD 05/08/2024 1:04 AM EDT [facility] HCT 26.6(L) 34.0 - 45.0 % LAB HEMATOLOGY METHOD 05/08/2024 1:04 AM EDT [facility] Platelet Count 159 155 - 369 10*3/uL LAB HEMATOLOGY METHOD 05/08/2024 1:04 AM EDT [facility] MCV 86 79 - 98 fL LAB HEMATOLOGY METHOD 05/08/2024 1:04 AM EDT [facility] MCH 29.8 26.0 - 32.0 pg LAB HEMATOLOGY METHOD 05/08/2024 1:04 AM EDT [facility] MCHC 34.6 30.7 - 35.5 g/dL LAB HEMATOLOGY METHOD 05/08/2024 1:04 AM EDT [facility] RDW 17.0(H) 11.5 - 14.5 % LAB HEMATOLOGY METHOD 05/08/2024 1:04 AM EDT [facility] MPV 11.2 8.8 - 12.5 fL LAB HEMATOLOGY METHOD 05/08/2024 1:04 AM EDT [facility] nRBC 0.0 <=0.0 per 100 WBCs LAB HEMATOLOGY METHOD 05/08/2024 1:04 AM EDT [facility] Blood Venous blood specimen / Unknown Venipuncture / Unknown 05/08/2024 12:21 AM EDT 05/08/2024 12:40 AM EDT us Maite Austin MD LAB BLOOD ORDERABLES Final Resu lt [facility] [address] [place] [address] * ECG Adult (05/07/2024 11:23 PM EDT) EKG DIAGNOSIS CLASS Abnormal MUSE ECG Ventricular Rate 106 BPM MUSE ECG Atrial Rate 106 BPM MUSE ECG TN Interval 136 ms MUSE ECG QRSD Interval 104 ms MUSE ECG QT Interval 406 ms MUSE ECG QTC Interval 539 ms MUSE ECG P [place] 42 degrees MUSE ECG R [place] 62 degrees MUSE ECG T Wave [place] 36 degrees MUSE ECG Diagnosis Sinus tachycardia MUSE ECG Diagnosis Low voltage QRS MUSE ECG Diagnosis Incomplete right bundle branch block MUSE ECG Diagnosis Nonspecific T wave abnormality MUSE ECG Diagnosis Prolonged QT MUSE ECG Diagnosis Abnormal ECG MUSE ECG Diagnosis MUSE ECG Diagnosis Confirmed by Marlena Zhou ([id number]) on 05/08/2024 11:25:10 AM MUSE ECG 05/07/2024 11:2 3 PM EDT 05/08/2024 11:25 AM EDT Maite Austin MD ECG ORDERABLES Final Result Performing Organization Address City/[facility]/ZIP Co de Phone Number MUSE ECG * Potassium (05/07/2024 11:15 PM EDT) [facility] Potassium, Plasma 4.3 3.6 - 4.9 mmol/L 05/07/2024 11:41 PM EDT [facility] Blood Venous blood specimen / Unknown Venipuncture / Unknown 05/07/2024 11:15 PM EDT 05/07/2024 11:21 PM EDT Maite Austin MD LAB BLOOD ORDERABLES Final Resu lt [facility] [address] [place] [address] * (ABNORMAL) POCT glucose meter (05/07/2024 11:04 PM EDT) [facility] POCT Glucose 247(H) 74 - 99 mg/dL 05/07/2024 11:06 PM EDT [facility] Comment:Accuracy of a glucos e [...] Comment 05/07/2024 11:06 PM EDT [facility]ALTH[facility] [employer] Offbearer ID Libby Mckeon 05/07/2024 11:06 PM EDT [facility]ALTHCARE LAB Device ID [id number] 05/07/2024 11:06 PM EDT [facility]ALTH[facility]ARE LAB Specimen Type POC Arterial 05/07/2024 11:06 PM EDT [facility] Blood Arterial blood specimen / Unknown 05/07/2024 11:04 PM EDT 05/07/2024 11:06 PM EDT us Maite Austin MD LAB POINT OF CARE TE ST DOCKED DEVICE UNSOLICITED RESULTS Final Result [facility] [address] [place] [address] * (ABNORMAL) POCT glucose meter (05/07/2024 10:38 PM EDT) [facility] POCT Glucose 121(H) 74 - 99 mg/dL [...] Comment 05/07/2024 11:04 PM EDT [facility]ALTH[facility] [employer] Offbearer ID Libby Mckeon 05/07/2024 11:04 PM EDT [facility]ALTH[facility]ARE LAB Device ID [id number] 05/07/2024 11:04 PM EDT [facility]ALTH[facility] LAB Specimen Type POC Arterial 05/07/2024 11:04 PM EDT [facility] Blood Arterial blood specimen / Unknown 05/07/2024 10:38 PM EDT 05/07/2024 11:04 PM EDT us Maite Austin MD LAB POINT OF CARE TE ST DOCKED DEVICE UNSOLICITED RESULTS Final Result [facility] [address] [place] [address] * (ABNORMAL) POCT glucose meter (05/07/2024 10:22 PM EDT) [facility] POCT Glucose 124(H) 74 - 99 mg/dL [...] Comment 05/07/2024 10:23 PM EDT HEALTHCARE LAB [employer] Offbearer ID Moon Mckeona 05/07/2024 10:23 PM EDT [facility] Device ID [id number] 05/07/2024 10:23 PM EDT [facility]ALTH[facility]ARE LAB Specimen Type POC Arterial 05/07/2024 10:23 PM EDT [facility] Blood Arterial blood specimen / Unknown 05/07/2024 10:22 PM EDT 05/07/2024 10:23 PM EDT Maite Austin MD LAB POINT OF CARE TE ST DOCKED DEVICE UNSOLICITED RESULTS Final Result [facility] [address] [place] [address] * (ABNORMAL) POCT glucose meter (05/07/2024 9:20 PM EDT) [facility] POCT Glucose 135(H) 74 - 99 mg/dL [...] for testing. Comment 05/07/2024 9:21 PM EDT [facility] [employer] Offbearer ID Moon Mckeona 05/07/2024 9:21 PM EDT HEALTHCARE LAB Device ID [id number] 05/07/2024 9:21 PM EDT [facility]ALTH[facility]ARE LAB Specimen Type POC Arterial 05/07/2024 9:21 PM EDT [facility] LAB Blood Arterial blood specimen / Unknown 05/07/2024 9:20 PM EDT 05/07/2024 9:21 PM EDT us Maite Austin MD LAB POINT OF CARE TE ST DOCKED DEVICE UNSOLICITED RESULTS Final Result Performing Organization Address City/[facility]/ZIP Co de Phone Number [facility] [address] [place] [address] * (ABNORMAL) Magnesium (05/07/2024 7:58 PM EDT) Magnesium, Plasma 3.1(H) 1.9 - 2.4 mg/dL 05/07/2024 8:58 PM EDT [facility] Blood Venous blood specimen / Unknown Venipuncture / Unknown 05/07/2024 7:58 PM EDT 05/07/2024 8:24 PM EDT us Maite Austin MD LAB BLOOD ORDERABLES Final Resu lt [facility] [address] [place] [address] * (ABNORMAL) Renal function panel (05/07/2024 7:58 PM EDT) Glucose, Plasma 135(H) 74 - 99 mg/dL 05/07/2024 8:58 PM EDT [facility] BUN, Plasma 28(H) 7 - 21 mg/dL 05/07/2024 8:58 PM EDT [facility] Creatinine, Plasma 1.92(H) 0.60 - 1.10 mg/dL 05/07/2024 8:58 PM EDT [facility] BUN/Creatinine Ratio 15 05/07/2024 8:58 PM EDT [facility] Sodium, Plasma 148(H) 136 - 145 mmol/L 05/07/2024 8:58 PM EDT [facility] Potassium, Plasma 5.5(H) 3.6 - 4.9 mmol/L 05/07/2024 8:58 PM EDT [facility] Chloride, Plasma 114(H) 97 - 107 mmol/L 05/07/2024 8:58 PM EDT [facility] CO2, Plasma 20(L) 22 - 29 mmol/L 05/07/2024 8:58 PM EDT [facility] Anion Gap 14 6 - 16 mmol/L 05/07/2024 8:58 PM EDT [facility] Total Calcium, Plasma 8.4(L) 8.9 - 10.2 mg/dL 05/07/2024 8:58 PM EDT [facility] Phosphorus, Plasma 6.6(H) 2.5 - 4.5 mg/dL 05/07/2024 8:58 PM EDT [facility] Albumin, Plasma 3.0(L) 3.5 - 5.2 g/dL 05/07/2024 8:58 PM EDT [facility] eGFRcr 30.7 mL/min/1.7 3m*2 05/07/2024 8:58 PM EDT [facility] Comment:Reported eGFRcr in m L/min/1.73m2 is based the CKD-EPI 2020 equation that does not use a race coefficient. Blood Venous blood specimen / Unknown Venipuncture / Unknown 05/07/2024 7:58 PM EDT 05/07/2024 8:24 PM EDT us Maite Austin MD LAB BLOOD ORDERABLES Final Resu lt [facility] [address] [place] [address] * (ABNORMAL) POCT glucose meter (05/07/2024 5:58 PM EDT) POCT Glucose 125(H) 74 - 99 mg/dL 05/07/2024 6:00 PM EDT [facility] Comment:Accuracy of a glucos e [...] 05/07/2024 6:00 PM EDT [facility] Hot Plate Plywood Press Offbearer ID Melisa Hernández 05/07/2024 6:00 PM EDT [facility] Device ID [id number] 05/07/2024 6:00 PM EDT [facility] Specimen Type POC Arterial 05/07/2024 6:00 PM EDT [facility] Blood Arterial blood specimen / Unknown 05/07/2024 5:58 PM EDT 05/07/2024 6:00 PM EDT Maite Austin MD LAB POINT OF CARE TE ST DOCKED DEVICE UNSOLICITED RESULTS Final Result Performing Organization Address City/[facility] de Phone Number [facility] [address] [place] [address] * (ABNORMAL) POCT glucose meter (05/07/2024 1:50 PM EDT) [facility] POCT Glucose 122(H) 74 - 99 mg/dL [...] for testing. Comment 05/07/2024 1:52 PM EDT [facility] Hot Plate [employer]wood Press Offbearer ID Melisa Hernández 05/07/2024 1:52 PM EDT [facility] Device ID [id number] 05/07/2024 1:52 PM EDT [facility] Specimen Type POC Arterial 05/07/2024 1:52 PM EDT [facility] Blood Arterial blood specimen / Unknown 05/07/2024 1:50 PM EDT 05/07/2024 1:52 PM EDT us Maite Austin MD LAB POINT OF CARE TE ST DOCKED DEVICE UNSOLICITED RESULTS Final Result Performing Organization Address City/[facility]/ZIP Co de Phone Number [facility] [address] [place] [id number] * [place] [facility], ADDL 30 MIN (05/07/2024 10:11 [...] LAB HEMATOLOGY METHOD 05/07/2024 8:27 AM EDT [facility] pCO2, Mixed Venous 50 37 - 52 mmHg LAB HEMATOLOGY METHOD 05/07/2024 8:27 AM EDT [facility] pO2, Mixed Venous 52(H) 25 - 40 mmHg LAB HEMATOLOGY METHOD 05/07/2024 8:27 AM EDT [facility] SO2, Measured, Mixed Venous 86(H) 65 - 80 % LAB HEMATOLOGY METHOD 05/07/2024 8:27 AM EDT [facility] Bicarbonate, Calculated, Mixed Venous 23 22 - 26 mmol/L LAB HEMATOLOGY METHOD 05/07/2024 8:27 AM EDT [facility] Base Excess, Mixed Venous -3.8(L) -2.0 - 3.0 mmol/L LAB HEMATOLOGY METHOD 05/07/2024 8:27 AM EDT [facility] Hematocrit, Whole Blood 29.8(L) 34.0 - 45.0 % LAB HEMATOLOGY METHOD 05/07/2024 8:27 AM EDT [facility] Sodium, Whole Blood 151(H) 136 - 145 mmol/L LAB HEMATOLOGY METHOD 05/07/2024 8:27 AM EDT [facility] Potassium, Whole Blood 4.5 3.6 - 4.9 mmol/L LAB HEMATOLOGY METHOD 05/07/2024 8:27 AM EDT [facility] Chloride, Whole Blood 119(H) 97 - 107 mmol/L LAB HEMATOLOGY METHOD 05/07/2024 8:27 AM EDT [facility] Ionized Calcium, Whole Blood 4.9 4.6 - 5.1 mg/dL LAB HEMATOLOGY METHOD 05/07/2024 8:27 AM EDT [facility] Glucose, Whole Blood 112(H) 74 - 99 mg/dL LAB HEMATOLOGY METHOD 05/07/2024 8:27 AM EDT [facility] Oxyhemoglobin, Mixed Venous, Whole Blood 83.4(H) 40.0 - 70.0 % LAB HEMATOLOGY METHOD 05/07/2024 8:27 AM EDT [facility] Hemoglobin Reduced, Mixed Venous, Whole Blood 14.2 % LAB HEMATOLOGY METHOD 05/07/2024 8:27 AM EDT [facility] Total Hemoglobin, Mixed Venous, Whole Blood 9.7(L) 11.2 - 15.7 g/dL LAB HEMATOLOGY METHOD 05/07/2024 8:27 AM EDT [facility] Blood Mixed venous blood specimen / Unknown Venipuncture / Unknown 05/07/2024 8:08 AM EDT 05/07/2024 8:23 AM EDT us Maite Austin MD LAB BLOOD ORDERABLES Final Resu lt [facility] [address] [place] [address] * (ABNORMAL) Blood gas, arterial (05/07/2024 8:08 AM EDT) pH, Arterial 7.29(L) 7.35 - 7.45 LAB HEMATOLOGY METHOD 05/07/2024 8:26 AM EDT [facility] pCO2, Arterial 48 35 - 48 mmHg LAB HEMATOLOGY METHOD 05/07/2024 8:26 AM EDT [facility] pO2, Arterial 148(H) 83 - 108 mmHg LAB HEMATOLOGY METHOD 05/07/2024 8:26 AM EDT [facility] SO2, Measured, Arterial 99(H) 94 - 98 % LAB HEMATOLOGY METHOD 05/07/2024 8:26 AM EDT [facility] Base Excess, Arterial -3.5(L) -2.0 - 3.0 mmol/L LAB HEMATOLOGY METHOD 05/07/2024 8:26 AM EDT [facility] Bicarbonate, Calculated, Arterial 23 22 - 26 mmol/L LAB HEMATOLOGY METHOD 05/07/2024 8:26 AM EDT [facility] Hematocrit, Whole Blood 30.5(L) 34.0 - 45.0 % LAB HEMATOLOGY METHOD 05/07/2024 8:26 AM EDT [facility] Sodium, Whole Blood 151(H) 136 - 145 mmol/L LAB HEMATOLOGY METHOD 05/07/2024 8:26 AM EDT [facility] Potassium, Whole Blood 4.6 3.6 - 4.9 mmol/L LAB HEMATOLOGY METHOD 05/07/2024 8:26 AM EDT [facility] Chloride, Whole Blood 119(H) 97 - 107 mmol/L LAB HEMATOLOGY METHOD 05/07/2024 8:26 AM EDT [facility] Glucose, Whole Blood 118(H) 74 - 99 mg/dL LAB HEMATOLOGY METHOD 05/07/2024 8:26 AM EDT [facility] Ionized Calcium, Whole Blood 5.0 4.6 - 5.1 mg/dL LAB HEMATOLOGY METHOD 05/07/2024 8:26 AM EDT [facility] Lactate, Arterial, Whole Blood 3.5(H) 0.5 - 1.6 mmol/L LAB HEMATOLOGY METHOD 05/07/2024 8:26 AM EDT [facility] Blood Arterial blood specimen / Unknown Arterial Puncture / Unknown 05/07/2024 8:08 AM EDT 05/07/2024 8:23 AM EDT us Maite Austin MD LAB BLOOD ORDERABLES Final Resu lt Performing Organization Address City/[facility]/ZIP Co de Phone Number [facility] [address] [place] [address] * (ABNORMAL) Potassium, Plasma (05/07/2024 8:08 AM EDT) Potassium, Plasma 5.0(H) 3.6 - 4.9 mmol/L 05/07/2024 8:55 AM EDT [facility] Blood Venous blood specimen / Unknown Venipuncture / Unknown 05/07/2024 8:08 AM EDT 05/07/2024 8:33 AM EDT us Maite Austin MD LAB BLOOD ORDERABLES Final Resu lt Performing Organization Address [facility] [place] [place] [address] * (ABNORMAL) Hematocrit (05/07/2024 8:08 AM EDT) HCT 29.0(L) 34.0 - 45.0 % LAB HEMATOLOGY METHOD 05/07/2024 8:46 AM EDT [facility] Blood Venous blood specimen / Unknown Venipuncture / Unknown 05/07/2024 8:08 AM EDT 05/07/2024 8:36 AM EDT us Maite Austin MD LAB BLOOD ORDERABLES Final Resu lt Performing Organization Address City/[facility]/ZIP Co de Phone Number [facility] [address] [place] [address] * (ABNORMAL) Hemoglobin (05/07/2024 8:08 AM EDT) HGB 9.9(L) 11.2 - 15.7 g/dL LAB HEMATOLOGY METHOD 05/07/2024 8:46 AM EDT [facility] Blood Venous blood specimen / Unknown Venipuncture / Unknown 05/07/2024 8:08 AM EDT 05/07/2024 8:36 AM EDT us Maite Austin MD LAB BLOOD ORDERABLES Final Resu lt [facility] [address] [place] [address] * (ABNORMAL) POCT arterial blood gas gem (05/07/2024 6:35 AM EDT) pH, Arterial 7.32(L) 7.35 - 7.45 05/07/2024 6:36 AM EDT [facility] pCO2, Arterial 44 35 - 48 mm Hg 05/07/2024 6:36 AM EDT [facility] pO2, Arterial 80(L) 83 - 108 mm Hg 05/07/2024 6:36 AM EDT [facility] SO2, Arterial 98 94 - 98 % 05/07/2024 6:36 AM EDT [facility] FIO2 40.0 % 05/07/2024 6:36 AM EDT [facility] Base Excess, Arterial -3.3(L) -2 - 3 mmol/L 05/07/2024 6:36 AM EDT [facility] HCO3, Arterial 22.7 22 - 26 mmol/L 05/07/2024 6:36 AM EDT [facility] Total Hemoglobin, Arterial, Whole Blood 9.7(L) 11.2 - 15.7 g/dL 05/07/2024 6:36 AM EDT [facility] Hematocrit, Arterial 29.0(L) 34.0 - 45.0 % 05/07/2024 6:36 AM EDT [facility] Sodium, Arterial 151(H) 136 - 145 mmol/L 05/07/2024 6:36 AM EDT [facility] Potassium, Arterial 4.9 3.6 - 4.9 mmol/L 05/07/2024 6:36 AM EDT [facility] Chloride, Whole Blood 118(H) 97 - 107 mmol/L 05/07/2024 6:36 AM EDT [facility] Glucose, Arterial 114(H) 74 - 99 mg/dL 05/07/2024 6:36 AM EDT [facility] Ionized Calcium, Arterial 5.5(H) 4.6 - 5.1 mg/dL 05/07/2024 6:36 AM EDT [facility] Lactate, Arterial 3.9(H) 0.5 - 1.6 mmol/L 05/07/2024 6:36 AM EDT [facility] Body Temperature 38.0 Celsius 05/07/2024 6:36 AM EDT [facility] pH, Temp Corrected, Arterial 7.31(L) 7.35 - 7.45 05/07/2024 6:36 AM EDT [facility] pCO2, Temp Corrected, Arterial 46 35 - 48 mm Hg 05/07/2024 6:36 AM EDT [facility] pO2, Temp Corrected, Arterial 85 83 - 108 mm Hg 05/07/2024 6:36 AM EDT [facility] Hot Plate Plywood Press Offbearer ID Light, Vicky 05/07/2024 6:36 AM EDT [facility] Blood, Arterial Whole blood specimen / Unknown 05/07/2024 6:35 AM EDT 05/07/2024 6:36 AM EDT Maite Austin MD LAB POINT OF CARE TE ST DOCKED DEVICE UNSOLICITED RESULTS Final Result Performing Organization Address City/State/[facility] Co de Phone Number [facility] [address] [place] [address] * XR Chest 1 View (05/07/2024 5:42 [...] Mary Phelps MD on 05/07/2024 9:59 AM us Maite Austin MD IMG XR PROCEDURES Final Result * ECG Adult - POD 1 (05/07/2024 4:16 AM EDT) EKG DIAGNOSIS CLASS Abnormal MUSE ECG Ventricular Rate 79 BPM MUSE ECG Atrial Rate 79 BPM MUSE ECG TN Interval 126 ms MUSE ECG QRSD Interval 96 ms MUSE ECG QT Interval 430 ms MUSE ECG QTC Interval 493 ms MUSE ECG P [place] 70 degrees MUSE ECG R [place] 78 degrees MUSE ECG T Wave [place] 22 degrees MUSE ECG Diagnosis Normal sinus [...] LAB HEMATOLOGY METHOD 05/07/2024 4:09 AM EDT [facility] pCO2, Arterial 40 35 - 48 mmHg LAB HEMATOLOGY METHOD 05/07/2024 4:09 AM EDT [facility] pO2, Arterial 172(H) 83 - 108 mmHg LAB HEMATOLOGY METHOD 05/07/2024 4:09 AM EDT [facility] SO2, Measured, Arterial 100(H) 94 - 98 % LAB HEMATOLOGY METHOD 05/07/2024 4:09 AM EDT [facility] Base Excess, Arterial -3.1(L) -2.0 - 3.0 mmol/L LAB HEMATOLOGY METHOD 05/07/2024 4:09 AM EDT [facility] Bicarbonate, Calculated, Arterial 22 22 - 26 mmol/L LAB HEMATOLOGY METHOD 05/07/2024 4:09 AM EDT [facility] Hematocrit, Whole Blood 31.2(L) 34.0 - 45.0 % LAB HEMATOLOGY METHOD 05/07/2024 4:09 AM EDT [facility] Sodium, Whole Blood 150(H) 136 - 145 mmol/L LAB HEMATOLOGY METHOD 05/07/2024 4:09 AM EDT [facility] Potassium, Whole Blood 4.4 3.6 - 4.9 mmol/L LAB HEMATOLOGY METHOD 05/07/2024 4:09 AM EDT [facility] Chloride, Whole Blood 117(H) 97 - 107 mmol/L LAB HEMATOLOGY METHOD 05/07/2024 4:09 AM EDT [facility] Glucose, Whole Blood 125(H) 74 - 99 mg/dL LAB HEMATOLOGY METHOD 05/07/2024 4:09 AM EDT [facility] Ionized Calcium, Whole Blood 4.3(L) 4.6 - 5.1 mg/dL LAB HEMATOLOGY METHOD 05/07/2024 4:09 AM EDT [facility] Lactate, Arterial, Whole Blood 4.6(H) 0.5 - 1.6 mmol/L LAB HEMATOLOGY METHOD 05/07/2024 4:09 AM EDT [facility] Blood Arterial blood specimen / Unknown Arterial Puncture / Unknown 05/07/2024 3:52 AM EDT 05/07/2024 4:04 AM EDT us Maite Austin MD LAB BLOOD ORDERABLES Final Resu lt [facility] [address] [place] [address] * (ABNORMAL) Blood gas panel with oximetry, mixed venous (05/07/2024 12:46 AM EDT) pH, Mixed Venous 7.24(LL) 7.32 - 7.43 LAB HEMATOLOGY METHOD 05/07/2024 1:12 AM EDT [facility] pCO2, Mixed Venous 61(HH) 37 - 52 mmHg LAB HEMATOLOGY METHOD 05/07/2024 1:12 AM EDT [facility] pO2, Mixed Venous 28 25 - 40 mmHg LAB HEMATOLOGY METHOD 05/07/2024 1:12 AM EDT [facility] SO2, Measured, Mixed Venous 46(L) 65 - 80 % LAB HEMATOLOGY METHOD 05/07/2024 1:12 AM EDT [facility] Bicarbonate, Calculated, Mixed Venous 26 22 - 26 mmol/L LAB HEMATOLOGY METHOD 05/07/2024 1:12 AM EDT [facility] Base Excess, Mixed Venous -2.4(L) -2.0 - 3.0 mmol/L LAB HEMATOLOGY METHOD 05/07/2024 1:12 AM EDT [facility] Hematocrit, Whole Blood 38.4 34.0 - 45.0 % LAB HEMATOLOGY METHOD 05/07/2024 1:12 AM EDT [facility] Sodium, Whole Blood 149(H) 136 - 145 mmol/L LAB HEMATOLOGY METHOD 05/07/2024 1:12 AM EDT [facility] Potassium, Whole Blood 4.7 3.6 - 4.9 mmol/L LAB HEMATOLOGY METHOD 05/07/2024 1:12 AM EDT [facility] Chloride, Whole Blood 115(H) 97 - 107 mmol/L LAB HEMATOLOGY METHOD 05/07/2024 1:12 AM EDT [facility] Ionized Calcium, Whole Blood 4.7 4.6 - 5.1 mg/dL LAB HEMATOLOGY METHOD 05/07/2024 1:12 AM EDT [facility] Glucose, Whole Blood 141(H) 74 - 99 mg/dL LAB HEMATOLOGY METHOD 05/07/2024 1:12 AM EDT [facility] Oxyhemoglobin, Mixed Venous, Whole Blood 44.6 40.0 - 70.0 % LAB HEMATOLOGY METHOD 05/07/2024 1:12 AM EDT [facility] Hemoglobin Reduced, Mixed Venous, Whole Blood 53.2 % LAB HEMATOLOGY METHOD 05/07/2024 1:12 AM EDT [facility] Total Hemoglobin, Mixed Venous, Whole Blood 12.5 11.2 - 15.7 g/dL LAB HEMATOLOGY METHOD 05/07/2024 1:12 AM EDT [facility] Blood Mixed venous blood specimen / Unknown Venipuncture / Unknown 05/07/2024 12:46 AM EDT 05/07/2024 1:10 AM EDT us Maite Austin MD LAB BLOOD ORDERABLES Final Resu lt [facility] [address] [place] [address] * (ABNORMAL) Basic metabolic panel (05/07/2024 12:46 AM EDT) Glucose, Plasma 139(H) 74 - 99 mg/dL 05/07/2024 1:44 AM EDT [facility] BUN, Plasma 16 7 - 21 mg/dL 05/07/2024 1:44 AM EDT [facility] Creatinine, Plasma 1.48(H) 0.60 - 1.10 mg/dL 05/07/2024 1:44 AM EDT [facility] BUN/Creatinine Ratio 11 05/07/2024 1:44 AM EDT [facility] Sodium, Plasma 149(H) 136 - 145 mmol/L 05/07/2024 1:44 AM EDT [facility] Potassium, Plasma 5.2(H) 3.6 - 4.9 mmol/L 05/07/2024 1:44 AM EDT [facility] Chloride, Plasma 117(H) 97 - 107 mmol/L 05/07/2024 1:44 AM EDT [facility] CO2, Plasma 20(L) 22 - 29 mmol/L 05/07/2024 1:44 AM EDT [facility] Anion Gap 12 6 - 16 mmol/L 05/07/2024 1:44 AM EDT [facility] Total Calcium, Plasma 8.1(L) 8.9 - 10.2 mg/dL 05/07/2024 1:44 AM EDT [facility] eGFRcr 41.9 mL/min/1.7 3m*2 05/07/2024 1:44 AM EDT [facility] Comment:Reported eGFRcr in m L/min/1.73m2 is based the CKD-EPI 2020 equation that does not use a race coefficient. Blood Venous blood specimen / Unknown Venipuncture / Unknown 05/07/2024 12:46 AM EDT 05/07/2024 1:10 AM EDT us Maite Austin MD LAB BLOOD ORDERABLES Final Resu lt [facility] [address] [place] [address] * (ABNORMAL) CBC (05/07/2024 12:46 AM EDT) WBC Count 20.23(H) 3.70 - 10.30 10*3/uL LAB HEMATOLOGY METHOD 05/07/2024 1:19 AM EDT [facility] RBC Count 4.31 3.90 - 5.20 10*6/uL LAB HEMATOLOGY METHOD 05/07/2024 1:19 AM EDT [facility] HGB 12.8 11.2 - 15.7 g/dL LAB HEMATOLOGY METHOD 05/07/2024 1:19 AM EDT [facility] HCT 36.6 34.0 - 45.0 % LAB HEMATOLOGY METHOD 05/07/2024 1:19 AM EDT [facility] Platelet Count 249 155 - 369 10*3/uL LAB HEMATOLOGY METHOD 05/07/2024 1:19 AM EDT [facility] MCV 85 79 - 98 fL LAB HEMATOLOGY METHOD 05/07/2024 1:19 AM EDT [facility] MCH 29.7 26.0 - 32.0 pg LAB HEMATOLOGY METHOD 05/07/2024 1:19 AM EDT [facility] MCHC 35.0 30.7 - 35.5 g/dL LAB HEMATOLOGY METHOD 05/07/2024 1:19 AM EDT [facility] RDW 15.2(H) 11.5 - 14.5 % LAB HEMATOLOGY METHOD 05/07/2024 1:19 AM EDT [facility] MPV 10.3 8.8 - 12.5 fL LAB HEMATOLOGY METHOD 05/07/2024 1:19 AM EDT [facility] nRBC 0.0 <=0.0 per 100 WBCs LAB HEMATOLOGY METHOD 05/07/2024 1:19 AM EDT [facility] Blood Venous blood specimen / Unknown Venipuncture / Unknown 05/07/2024 12:46 AM EDT 05/07/2024 1:10 AM EDT us Maite Austin MD LAB BLOOD ORDERABLES Final Resu lt [facility] [address] [place] [address] * (ABNORMAL) Blood gas, arterial (05/07/2024 12:45 AM EDT) pH, Arterial 7.32(L) 7.35 - 7.45 LAB HEMATOLOGY METHOD 05/07/2024 1:11 AM EDT [facility] pCO2, Arterial 44 35 - 48 mmHg LAB HEMATOLOGY METHOD 05/07/2024 1:11 AM EDT [facility] pO2, Arterial 333(H) 83 - 108 mmHg LAB HEMATOLOGY METHOD 05/07/2024 1:11 AM EDT [facility] SO2, Measured, Arterial 100(H) 94 - 98 % LAB HEMATOLOGY METHOD 05/07/2024 1:11 AM EDT [facility] Base Excess, Arterial -3.4(L) -2.0 - 3.0 mmol/L LAB HEMATOLOGY METHOD 05/07/2024 1:11 AM EDT [facility] Bicarbonate, Calculated, Arterial 23 22 - 26 mmol/L LAB HEMATOLOGY METHOD 05/07/2024 1:11 AM EDT [facility] Hematocrit, Whole Blood 39.5 34.0 - 45.0 % LAB HEMATOLOGY METHOD 05/07/2024 1:11 AM EDT [facility] Sodium, Whole Blood 148(H) 136 - 145 mmol/L LAB HEMATOLOGY METHOD 05/07/2024 1:11 AM EDT [facility] Potassium, Whole Blood 4.7 3.6 - 4.9 mmol/L LAB HEMATOLOGY METHOD 05/07/2024 1:11 AM EDT [facility] Chloride, Whole Blood 117(H) 97 - 107 mmol/L LAB HEMATOLOGY METHOD 05/07/2024 1:11 AM EDT [facility] Glucose, Whole Blood 138(H) 74 - 99 mg/dL LAB HEMATOLOGY METHOD 05/07/2024 1:11 AM EDT [facility] Ionized Calcium, Whole Blood 4.6 4.6 - 5.1 mg/dL LAB HEMATOLOGY METHOD 05/07/2024 1:11 AM EDT [facility] Lactate, Arterial, Whole Blood 5.2(H) 0.5 - 1.6 mmol/L LAB HEMATOLOGY METHOD 05/07/2024 1:11 AM EDT [facility] Blood Arterial blood specimen / Unknown Arterial Puncture / Unknown 05/07/2024 12:45 AM EDT 05/07/2024 1:10 AM EDT us Maite Austin MD LAB BLOOD ORDERABLES Final Resu lt [facility] [address] [place] [address] * [place] CRITICAL [facility]ARE, E/M 30-74 MINUTES (05/06/2024 10:03 [...] Bilateral chest tubes, mediastinal drain, right IJ [place] catheter with the tip overlying the main pulmonary artery, median sternotomy wires and mediastinal clips are present. Mild vascular congestion. No pleural effusion or visible pneumothorax. Procedure Note Camila Barth MD - 05/06/2024 CLINICAL INDICATION: Post-Op Cardiac Surgery TECHNIQUE: XR CHEST 1 VIEW COMPARISON: 05/03/2024 FINDINGS: The cardiomediastinal silhouette is prominent. Endotracheal tube tipoverlies mid thoracic trachea. Bilateral chest tubes, mediastinal drain,right IJ [place]-Ellis catheter with the tip overlying the main pulmonaryartery, median sternotomy wires and mediastinal clips are present. Mildvascular congestion. No pleural effusion or visible pneumothorax. IMPRESSION: Lines and catheters as above Mild vascular congestion CRITICAL RESULT: No COMMUNICATION: Per this written report. Drafted by Camila Barth MD on 05/06/2024 9:12 PM Final report signed by Camila Barth MD on 05/06/2024 9:13 PM Maite Austin MD IMG XR PROCEDURES [...] platelets (05/06/2024 9:09 PM EDT) Result Anastasiia Alfie [...] Detected Not Detected 05/07/2024 11:20 AM EDT [facility] Swab (Axilla and Groin) Non-blood Collection / Unknown 05/06/2024 8:44 PM EDT 05/06/2024 9:17 PM EDT Narrative [facility] - 05/07/2024 11:20 AM EDT This PCR assay was developed and its performance characteristics determined by [facility] as appropriate for clinical purposes. This assay has not been cleared or approved by the FDA, but is performed in a CLIA regulated laboratory that is qualified to perform high-complexity testing. us Maite Austin MD LAB MICROBIOLOGY - GENERAL ORDE LACHO Final Result [facility] [address] [place] [address] * Multi Drug Resistance Test (05/06/2024 8:44 PM EDT) Culture No growth at day 1 05/07/2024 6:58 PM EDT [facility] Swab (Nares and Jacey Rectal) Non-blood Collection / Unknown 05/06/2024 8:44 PM EDT 05/06/2024 9:17 PM EDT Maite Austin MD LAB MICROBIOLOGY - GENERAL POLLY MONK Final Result [facility] [address] [place] [address] * (ABNORMAL) Blood gas, arterial (05/06/2024 8:43 PM EDT) pH, Arterial 7.29(L) 7.35 - 7.45 LAB HEMATOLOGY METHOD 05/06/2024 8:55 PM EDT [facility] pCO2, Arterial 54(H) 35 - 48 mmHg LAB HEMATOLOGY METHOD 05/06/2024 8:55 PM EDT [facility] pO2, Arterial 160(H) 83 - 108 mmHg LAB HEMATOLOGY METHOD 05/06/2024 8:55 PM EDT [facility] SO2, Measured, Arterial 100(H) 94 - 98 % LAB HEMATOLOGY METHOD 05/06/2024 8:55 PM EDT [facility] Base Excess, Arterial -1.7 -2.0 - 3.0 mmol/L LAB HEMATOLOGY METHOD 05/06/2024 8:55 PM EDT [facility] Bicarbonate, Calculated, Arterial 26 22 - 26 mmol/L LAB HEMATOLOGY METHOD 05/06/2024 8:55 PM EDT [facility] Hematocrit, Whole Blood 44.1 34.0 - 45.0 % LAB HEMATOLOGY METHOD 05/06/2024 8:55 PM EDT [facility] Sodium, Whole Blood 150(H) 136 - 145 mmol/L LAB HEMATOLOGY METHOD 05/06/2024 8:55 PM EDT [facility] Potassium, Whole Blood 4.4 3.6 - 4.9 mmol/L LAB HEMATOLOGY METHOD 05/06/2024 8:55 PM EDT [facility] LAB Chloride, Whole Blood 115(H) 97 - 107 mmol/L LAB HEMATOLOGY METHOD 05/06/2024 8:55 PM EDT [facility] Glucose, Whole Blood 111(H) 74 - 99 mg/dL LAB HEMATOLOGY METHOD 05/06/2024 8:55 PM EDT [facility] Ionized Calcium, Whole Blood 4.7 4.6 - 5.1 mg/dL LAB HEMATOLOGY METHOD 05/06/2024 8:55 PM EDT [facility] Lactate, Arterial, Whole Blood 3.7(H) 0.5 - 1.6 mmol/L LAB HEMATOLOGY METHOD 05/06/2024 8:55 PM EDT [facility] Blood Arterial blood specimen / Unknown Arterial Puncture / Unknown 05/06/2024 8:43 PM EDT 05/06/2024 8:53 PM EDT us Maite Austin MD LAB BLOOD ORDERABLES Final Resu lt Performing Organization Address [facility]/ZIP Co de Phone Number [facility] [address] [place] [address] * (ABNORMAL) APTT (05/06/2024 8:42 PM EDT) aPTT 54(H) 25 - 35 sec LAB COAGULATION METHOD 05/06/2024 9:34 PM EDT [facility] Blood Venous blood specimen / Unknown Venipuncture / Unknown 05/06/2024 8:42 PM EDT 05/06/2024 8:53 PM EDT us Maite Austin MD LAB BLOOD ORDERABLES Final Resu lt [facility] [address] [place] [address] * (ABNORMAL) Protime-INR (05/06/2024 8:42 PM EDT) Prothrombin Time 18.0(H) 12.0 - 14.3 sec LAB COAGULATION METHOD 05/06/2024 9:34 PM EDT [facility] INR 1.5(H) 0.9 - 1.1 LAB COAGULATION METHOD 05/06/2024 9:34 PM EDT [facility] Blood Venous blood specimen / Unknown Venipuncture / Unknown 05/06/2024 8:42 PM EDT 05/06/2024 8:53 PM EDT Narrative [facility] - 05/06/2024 9:34 PM EDT OPTIMAL INR RANGES FOR PATIENT ON ORAL ANTICOAGULANT THERAPY Prevention of venous thromboembolism INR 2.0 to 3.0 In patients with heart disease: Atrial fibrillation INR 2.0 to 3.0 Valvular heart disease INR 2.0 to 3.0 Tissue heart valves INR 2.0 to 3.0 Mechanical prosthetic valves INR 2.5 to 3.5 Prevention of recurrent [place] INR 2.5 to 3.5 us Maite Austin MD LAB BLOOD ORDERABLES Final Resu lt Performing Organization Address City/[facility]/[place] [address] * Phosphorus (05/06/2024 8:42 PM EDT) Phosphorus, Plasma 2.6 2.5 - 4.5 mg/dL 05/06/2024 9:44 PM EDT [facility] Blood Venous blood specimen / Unknown Venipuncture / Unknown 05/06/2024 8:42 PM EDT 05/06/2024 8:53 PM EDT us Maite Austin MD LAB BLOOD ORDERABLES Final Resu lt Performing Organization Address City/[facility]/[place] [address] * (ABNORMAL) Magnesium (05/06/2024 8:42 PM EDT) Magnesium, Plasma 4.5(H) 1.9 - 2.4 mg/dL 05/06/2024 9:44 PM EDT [facility] Blood Venous blood specimen / Unknown Venipuncture / Unknown 05/06/2024 8:42 PM EDT 05/06/2024 8:53 PM EDT us Maite Austin MD LAB BLOOD ORDERABLES Final Resu lt [facility] [address] [place] [address] * (ABNORMAL) Basic metabolic panel (05/06/2024 8:42 PM EDT) Glucose, Plasma 112(H) 74 - 99 mg/dL 05/06/2024 9:44 PM EDT [facility] BUN, Plasma 12 7 - 21 mg/dL 05/06/2024 9:44 PM EDT [facility] Creatinine, Plasma 1.04 0.60 - 1.10 mg/dL 05/06/2024 9:44 PM EDT [facility] BUN/Creatinine Ratio 12 05/06/2024 9:44 PM EDT [facility] Sodium, Plasma 150(H) 136 - 145 mmol/L 05/06/2024 9:44 PM EDT [facility] Potassium, Plasma 4.8 3.6 - 4.9 mmol/L 05/06/2024 9:44 PM EDT [facility] Comment:Hemolyzed, result ma y be falsely increased. Chloride, Plasma 116(H) 97 - 107 mmol/L 05/06/2024 9:44 PM EDT [facility] CO2, Plasma 23 22 - 29 mmol/L 05/06/2024 9:44 PM EDT [facility] Anion Gap 11 6 - 16 mmol/L 05/06/2024 9:44 PM EDT [facility] Total Calcium, Plasma 8.1(L) 8.9 - 10.2 mg/dL 05/06/2024 9:44 PM EDT [facility] eGFRcr 64.0 mL/min/1.7 3m*2 05/06/2024 9:44 PM EDT [facility] Comment:Reported eGFRcr in m L/min/1.73m2 is based the CKD-EPI 2020 equation that does not use a race coefficient. Blood Venous blood specimen / Unknown Venipuncture / Unknown 05/06/2024 8:42 PM EDT 05/06/2024 8:53 PM EDT us Maite Austin MD LAB BLOOD ORDERABLES Final Resu lt [facility] [address] [place] [address] * (ABNORMAL) CBC (05/06/2024 8:42 PM EDT) WBC Count 23.57(H) 3.70 - 10.30 10*3/uL LAB HEMATOLOGY METHOD 05/06/2024 9:00 PM EDT [facility] RBC Count 4.79 3.90 - 5.20 10*6/uL LAB HEMATOLOGY METHOD 05/06/2024 9:00 PM EDT [facility] HGB 14.3 11.2 - 15.7 g/dL LAB HEMATOLOGY METHOD 05/06/2024 9:00 PM EDT [facility] HCT 40.8 34.0 - 45.0 % LAB HEMATOLOGY METHOD 05/06/2024 9:00 PM EDT [facility] Platelet Count 248 155 - 369 10*3/uL LAB HEMATOLOGY METHOD 05/06/2024 9:00 PM EDT [facility] MCV 85 79 - 98 fL LAB HEMATOLOGY METHOD 05/06/2024 9:00 PM EDT [facility] MCH 29.9 26.0 - 32.0 pg LAB HEMATOLOGY METHOD 05/06/2024 9:00 PM EDT [facility] MCHC 35.0 30.7 - 35.5 g/dL LAB HEMATOLOGY METHOD 05/06/2024 9:00 PM EDT [facility] RDW 14.6(H) 11.5 - 14.5 % LAB HEMATOLOGY METHOD 05/06/2024 9:00 PM EDT [facility] MPV 9.8 8.8 - 12.5 fL LAB HEMATOLOGY METHOD 05/06/2024 9:00 PM EDT [facility] nRBC 0.0 <=0.0 per 100 WBCs LAB HEMATOLOGY METHOD 05/06/2024 9:00 PM EDT [facility] Blood Venous blood specimen / Unknown Venipuncture / Unknown 05/06/2024 8:42 PM EDT 05/06/2024 8:53 PM EDT us Maite Austin MD LAB BLOOD ORDERABLES Final Resu lt [facility] [address] [place] [address] * ECG Adult - Upon Admissoin to CVICU (05/06/2024 8:38 PM EDT) EKG DIAGNOSIS CLASS Abnormal MUSE ECG Ventricular Rate 103 BPM MUSE ECG Atrial Rate 103 BPM MUSE ECG TN Interval 158 ms MUSE ECG QRSD Interval 96 ms MUSE ECG QT Interval 424 ms MUSE ECG QTC Interval 555 ms MUSE ECG P [place] 81 degrees MUSE ECG R [place] 71 degrees MUSE ECG T Wave [place] 14 degrees MUSE ECG Diagnosis Sinus tachycardia MUSE ECG Diagnosis Incomplete right bundle branch block MUSE ECG Diagnosis Septal infarct , age undetermined MUSE ECG Diagnosis Prolonged QT MUSE ECG Diagnosis Abnormal ECG MUSE ECG Diagnosis MUSE ECG Diagnosis Confirmed by Pratik Aiken ([id number]) on 05/07/2024 1:32:28 PM MUSE ECG 05/06/2024 8:38 PM EDT 05/07/2024 1:32 PM EDT us Maite Austin MD ECG ORDERABLES Final Result Performing Organization Address City/[facility] Co de Phone Number MUSE ECG * (ABNORMAL) POCT arterial blood gas gem (05/06/2024 7:39 PM EDT) pH, Arterial 7.30(L) 7.35 - 7.45 05/06/2024 7:40 PM EDT [facility] pCO2, Arterial 48 35 - 48 mm Hg 05/06/2024 7:40 PM EDT [facility] pO2, Arterial 72(L) 83 - 108 mm Hg 05/06/2024 7:40 PM EDT [facility] SO2, Arterial 97 94 - 98 % 05/06/2024 7:40 PM EDT [facility] Base Excess, Arterial -3.0(L) -2 - 3 mmol/L 05/06/2024 7:40 PM EDT [facility] HCO3, Arterial 23.6 22 - 26 mmol/L 05/06/2024 7:40 PM EDT [facility] Total Hemoglobin, Arterial, Whole Blood 11.7 11.2 - 15.7 g/dL 05/06/2024 7:40 PM EDT [facility] Hematocrit, Arterial 35.0 34.0 - 45.0 % 05/06/2024 7:40 PM EDT [facility] Sodium, Arterial 147(H) 136 - 145 mmol/L 05/06/2024 7:40 PM EDT [facility] Potassium, Arterial 4.7 3.6 - 4.9 mmol/L 05/06/2024 7:40 PM EDT [facility] Chloride, Whole Blood 115(H) 97 - 107 mmol/L 05/06/2024 7:40 PM EDT [facility] Glucose, Arterial 105(H) 74 - 99 mg/dL 05/06/2024 7:40 PM EDT [facility] Ionized Calcium, Arterial 4.8 4.6 - 5.1 mg/dL 05/06/2024 7:40 PM EDT [facility] Lactate, Arterial 3.7(H) 0.5 - 1.6 mmol/L 05/06/2024 7:40 PM EDT [facility] Body Temperature 37.0 Celsius 05/06/2024 7:40 PM EDT [facility] pH, Temp Corrected, Arterial 7.30(L) 7.35 - 7.45 05/06/2024 7:40 PM EDT [facility] pCO2, Temp Corrected, Arterial 48 35 - 48 mm Hg 05/06/2024 7:40 PM EDT [facility] pO2, Temp Corrected, Arterial 72(L) 83 - 108 mm Hg 05/06/2024 7:40 PM EDT [facility] Hot Plate [employer] Offbearer ID Jake Angeles 05/06/2024 7:40 PM EDT [facility] Blood, Arterial Whole blood specimen / Unknown 05/06/2024 7:39 PM EDT 05/06/2024 7:40 PM EDT us Maite Austin MD LAB POINT OF CARE TE ST DOCKED DEVICE UNSOLICITED RESULTS Final Result [facility] [address] [place] [address] * (ABNORMAL) POCT arterial blood gas gem (05/06/2024 7:09 PM EDT) pH, Arterial 7.28(L) 7.35 - 7.45 05/06/2024 7:11 PM EDT [facility] pCO2, Arterial 48 35 - 48 mm Hg 05/06[facility]24 [facility] pO2, Arterial 304(H) 83 - 108 mm Hg 05/06/2024 7:11 PM EDT [facility] SO2, Arterial 100(H) 94 - 98 % 05/06/2024 7:11 PM T [facility] Base Excess, Arterial -4.1(L) -2 - 3 mmol/L 05/06/2024 7:11 PM [facility] HCO3, Arterial 22.6 22 - 26 mmol/L 05/06/2024 7:11 PM T [facility] Total Hemoglobin, Arterial, Whole Blood 9.4(L) 11.2 - 15.7 g/dL 05/06/2024 7:11 PM [facility] Hematocrit, Arterial 28.0(L) 34.0 - 45.0 % 05/06/2024 7:11 PM [facility] Sodium, Arterial 149(H) 136 - 145 mmol/L 05/06/2024 7:11 PM [facility] Potassium, Arterial 5.0(H) 3.6 - 4.9 mmol/L 05/06/2024 7:11 PM [facility] Chloride, Whole Blood 116(H) 97 - 107 mmol/L 05/06/2024 7:11 PM [facility] Glucose, Arterial 134(H) 74 - 99 mg/dL 05/06/2024 7:11 PM [facility] Ionized Calcium, Arterial 4.6 4.6 - 5.1 mg/dL 05/06/2024 7:11 PM [facility] Lactate, Arterial 5.1(H) 0.5 - 1.6 mmol/L 05/06/2024 7:11 PM T [facility] Body Temperature 37.0 Celsius 05/06/2024 7:11 PM [facility] pH, Temp Corrected, Arterial 7.28(L) 7.35 - 7.45 05/06/2024 7:11 PM EDT [facility] pCO2, Temp Corrected, Arterial 48 35 - 48 mm Hg 05/06/2024 7:11 PM EDT [facility] pO2, Temp Corrected, Arterial 304(H) 83 - 108 mm Hg 05/06/2024 7:11 PM EDT [facility] Hot [employer] Offbearer ID Jake Angeles 05/06/2024 7:11 PM EDT [facility] Blood, Arterial Whole blood specimen / Unknown 05/06/2024 7:09 PM EDT 05/06/2024 7:11 PM EDT Maite Austin MD LAB POINT OF CARE TE ST DOCKED DEVICE UNSOLICITED RESULTS Final Result Performing Organization Address City/[facility]/ZIP Co de Phone Number [facility] [address] [place] [address] * Prepare Leukocyte Reduced Platelets: 1 Units (05/06/2024 6:40 PM EDT) Pathologist [facility] Product Code [id number] CH BLOO D BANK Dispense Status Transfused BLOOD BANK Blood Expiration Date [id number] BLOOD BANK Unit Number [id number] CH B LOOD BANK Product Blood Type 6200 BLOOD BANK Blood Type A+ BLOOD BANK Blood Venous blood specimen / Unknown Alfie Khoury MD BLOOD BANK PRODUCT ORDERAB LES Final Result Performing Organization Address [facility] Co de Phone Number BLOOD BANK [address] [place] [address] * (ABNORMAL) POCT arterial blood gas gem (05/06/2024 6:38 PM EDT) pH, Arterial 7.29(L) 7.35 - 7.45 05/06/2024 6:40 PM EDT [facility] pCO2, Arterial 47 35 - 48 mm Hg 05/06/2024 6:40 PM EDT [facility] pO2, Arterial 425(H) 83 - 108 mm Hg 05/06/2024 6:40 PM EDT [facility] SO2, Arterial 100(H) 94 - 98 % 05/06/2024 6:40 PM EDT [facility] Base Excess, Arterial -3.8(L) -2 - 3 mmol/L 05/06/2024 6:40 PM EDT [facility] HCO3, Arterial 22.6 22 - 26 mmol/L 05/06/2024 6:40 PM EDT [facility] Total Hemoglobin, Arterial, Whole Blood 7.2(L) 11.2 - 15.7 g/dL 05/06/2024 6:40 PM EDT [facility] Hematocrit, Arterial 22.0(L) 34.0 - 45.0 % 05/06/2024 6:40 PM EDT [facility] Sodium, Arterial 148(H) 136 - 145 mmol/L 05/06/2024 6:40 PM EDT [facility] Potassium, Arterial 4.9 3.6 - 4.9 mmol/L 05/06/2024 6:40 PM EDT [facility] Chloride, Whole Blood 116(H) 97 - 107 mmol/L 05/06/2024 6:40 PM EDT [facility] Glucose, Arterial 141(H) 74 - 99 mg/dL 05/06/2024 6:40 PM T [facility] Ionized Calcium, Arterial 4.8 4.6 - 5.1 mg/dL 05/06/2024 6:40 PM EDT [facility] Lactate, Arterial 5.4(H) 0.5 - 1.6 mmol/L 05/06/2024 6:40 PM EDT [facility] Body Temperature 37.0 Celsius 05/06/2024 6:40 PM EDT [facility] pH, Temp Corrected, Arterial 7.29(L) 7.35 - 7.45 05/06/2024 6:40 PM EDT [facility] pCO2, Temp Corrected, Arterial 47 35 - 48 mm Hg 05/06/2024 6:40 PM EDT [facility] pO2, Temp Corrected, Arterial 425(H) 83 - 108 mm Hg 05/06/2024 6:40 PM EDT [facility] Hot Plate [employer] Offbearer ID Jake Angeles 05/06/2024 6:40 PM T [facility] Blood, Arterial Whole blood specimen / Unknown 05/06/2024 6:38 PM EDT 05/06/2024 6:40 PM EDT us Maite Austin MD LAB POINT OF CARE TE ST DOCKED DEVICE UNSOLICITED RESULTS Final Result [facility] [address] [place] [address] * (ABNORMAL) POCT arterial blood gas gem (05/06/2024 6:12 PM EDT) pH, Arterial 7.45 7.35 - 7.45 05/06/2024 6:13 PM EDT [facility] pCO2, Arterial 30(L) 35 - 48 mm Hg 05/06/2024 6:13 PM EDT [facility] pO2, Arterial 389(H) 83 - 108 mm Hg 05/06/2024 6:13 PM EDT [facility] SO2, Arterial 100(H) 94 - 98 % 05/06/2024 6:13 PM EDT [facility] Base Excess, Arterial -2.7(L) -2 - 3 mmol/L 05/06/2024 6:13 PM EDT [facility] HCO3, Arterial 20.9(L) 22 - 26 mmol/L 05/06/2024 6:13 PM EDT [facility] Total Hemoglobin, Arterial, Whole Blood 7.6(L) 11.2 - 15.7 g/dL 05/06/2024 6:13 PM EDT [facility] Hematocrit, Arterial 23.0(L) 34.0 - 45.0 % 05/06/2024 6:13 PM EDT [facility] Sodium, Arterial 149(H) 136 - 145 mmol/L 05/06/2024 6:13 PM EDT [facility] Potassium, Arterial 5.0(H) 3.6 - 4.9 mmol/L 05/06/2024 6:13 PM EDT [facility] Chloride, Whole Blood 118(H) 97 - 107 mmol/L 05/06/2024 6:13 PM EDT [facility] Glucose, Arterial 209(H) 74 - 99 mg/dL 05/06/2024 6:13 PM EDT [facility] Ionized Calcium, Arterial 4.4(L) 4.6 - 5.1 mg/dL 05/06/2024 6:13 PM EDT [facility] Lactate, Arterial 5.2(H) 0.5 - 1.6 mmol/L 05/06/2024 6:13 PM EDT [facility] Body Temperature 37.0 Celsius 05/06/2024 6:13 PM EDT [facility] pH, Temp Corrected, Arterial 7.45 7.35 - 7.45 05/06/2024 6:13 PM EDT [facility] pCO2, Temp Corrected, Arterial 30(L) 35 - 48 mm Hg 05/06/2024 6:13 PM EDT [facility] pO2, Temp Corrected, Arterial 389(H) 83 - 108 mm Hg 05/06/2024 6:13 PM EDT [facility] Hot [employer] Offbearer ID Jake Angeles 05/06/2024 6:13 PM EDT [facility] Blood, Arterial Whole blood specimen / Unknown 05/06/2024 6:12 PM EDT 05/06/2024 6:13 PM EDT us Maite Austin MD LAB POINT OF CARE TE ST DOCKED DEVICE UNSOLICITED RESULTS Final Result Performing Organization Address City/State/[facility] Co de Phone Number [facility] [address] [place] [address] * (ABNORMAL) POCT arterial blood gas gem (05/06/2024 5:57 PM EDT) pH, Arterial 7.44 7.35 - 7.45 05/06/2024 5:58 PM EDT [facility] pCO2, Arterial 28(L) 35 - 48 mm Hg 05/06/2024 5:58 PM EDT [facility] pO2, Arterial 335(H) 83 - 108 mm Hg 05/06/2024 5:58 PM EDT [facility] SO2, Arterial 100(H) 94 - 98 % 05/06/2024 5:58 PM EDT [facility] Base Excess, Arterial -4.6(L) -2 - 3 mmol/L 05/06/2024 5:58 PM EDT [facility] HCO3, Arterial 19.0(L) 22 - 26 mmol/L 05/06/2024 5:58 PM EDT [facility] Total Hemoglobin, Arterial, Whole Blood 6.9(L) 11.2 - 15.7 g/dL 05/06/2024 5:58 PM EDT [facility] Hematocrit, Arterial 21.0(L) 34.0 - 45.0 % 05/06/2024 5:58 PM EDT [facility] Sodium, Arterial 144 136 - 145 mmol/L 05/06/2024 5:58 PM EDT [facility] Potassium, Arterial 5.7(H) 3.6 - 4.9 mmol/L 05/06/2024 5:58 PM EDT [facility] Chloride, Whole Blood 116(H) 97 - 107 mmol/L 05/06/2024 5:58 PM EDT [facility] Glucose, Arterial 177(H) 74 - 99 mg/dL 05/06/2024 5:58 PM EDT [facility] Ionized Calcium, Arterial 4.8 4.6 - 5.1 mg/dL 05/06/2024 5:58 PM EDT [facility] Lactate, Arterial 4.7(H) 0.5 - 1.6 mmol/L 05/06/2024 5:58 PM EDT [facility] Body Temperature 37.0 Celsius 05/06/2024 5:58 PM EDT [facility] pH, Temp Corrected, Arterial 7.44 7.35 - 7.45 05/06/2024 5:58 PM EDT [facility] pCO2, Temp Corrected, Arterial 28(L) 35 - 48 mm Hg 05/06/2024 5:58 PM EDT [facility] pO2, Temp Corrected, Arterial 335(H) 83 - 108 mm Hg 05/06/2024 5:58 PM EDT [facility] Hot [employer] Offbearer ID Jake Angelse 05/06/2024 5:58 PM EDT [facility] Blood, Arterial Whole blood specimen / Unknown 05/06/2024 5:57 PM EDT 05/06/2024 5:58 PM EDT us Maite Austin MD LAB POINT OF CARE TE ST DOCKED DEVICE UNSOLICITED RESULTS Final Result [facility] [address] [place] [address] * (ABNORMAL) POCT arterial blood gas gem (05/06/2024 5:42 PM EDT) pH, Arterial 7.48(H) 7.35 - 7.45 05/06/2024 5:43 PM EDT [facility] pCO2, Arterial 37 35 - 48 mm Hg 05/06/2024 5:43 PM EDT [facility] pO2, Arterial 337(H) 83 - 108 mm Hg 05/06/2024 5:43 PM EDT [facility] SO2, Arterial 99(H) 94 - 98 % 05/06/2024 5:43 PM EDT [facility] Base Excess, Arterial 3.8(H) -2 - 3 mmol/L 05/06/2024 5:43 PM EDT [facility] HCO3, Arterial 27.6(H) 22 - 26 mmol/L 05/06/2024 5:43 PM EDT [facility] Total Hemoglobin, Arterial, Whole Blood 7.5(L) 11.2 - 15.7 g/dL 05/06/2024 5:43 PM T [facility] Hematocrit, Arterial 23.0(L) 34.0 - 45.0 % 05/06/2024 5:43 PM EDT [facility] Sodium, Arterial 144 136 - 145 mmol/L 05/06/2024 5:43 PM EDT [facility] Potassium, Arterial 6.8(HH) 3.6 - 4.9 mmol/L 05/06/2024 5:43 PM EDT [facility] Chloride, Whole Blood 113(H) 97 - 107 mmol/L 05/06/2024 5:43 PM T [facility] Glucose, Arterial 224(H) 74 - 99 mg/dL 05/06/2024 5:43 PM EDT [facility] Ionized Calcium, Arterial 4.9 4.6 - 5.1 mg/dL 05/06/2024 5:43 PM EDT [facility] Lactate, Arterial 5.3(H) 0.5 - 1.6 mmol/L 05/06/2024 5:43 PM EDT [facility] Body Temperature 37.0 Celsius 05/06/2024 5:43 PM EDT [facility] pH, Temp Corrected, Arterial 7.48(H) 7.35 - 7.45 05/06/2024 5:43 PM EDT [facility] pCO2, Temp Corrected, Arterial 37 35 - 48 mm Hg 05/06/2024 5:43 PM EDT [facility] pO2, Temp Corrected, Arterial 337(H) 83 - 108 mm Hg 05/06/2024 5:43 PM EDT [facility] Hot Plate [employer] Offbearer ID Yuri Hood 05/06/2024 5:43 PM EDT [facility] Blood, Arterial Whole blood specimen / Unknown 05/06/2024 5:42 PM EDT 05/06/2024 5:43 PM EDT us Maite Austin MD LAB POINT OF CARE TE ST DOCKED DEVICE UNSOLICITED RESULTS Final Result [facility] [address] [place] [address] * (ABNORMAL) POCT arterial blood gas gem (05/06/2024 5:08 PM EDT) pH, Arterial 7.38 7.35 - 7.45 05/06/2024 5:10 PM EDT [facility] pCO2, Arterial 37 35 - 48 mm Hg 05/06/2024 5:10 PM EDT [facility] pO2, Arterial 343(H) 83 - 108 mm Hg 05/06/2024 5:10 PM EDT [facility] SO2, Arterial 99(H) 94 - 98 % 05/06/2024 5:10 PM EDT [facility] Base Excess, Arterial -2.9(L) -2 - 3 mmol/L 05/06/2024 5:10 PM EDT [facility] HCO3, Arterial 21.9(L) 22 - 26 mmol/L 05/06/2024 5:10 PM EDT [facility] Total Hemoglobin, Arterial, Whole Blood 8.2(L) 11.2 - 15.7 g/dL 05/06/2024 5:10 PM EDT [facility] Hematocrit, Arterial 25.0(L) 34.0 - 45.0 % 05/06/2024 5:10 PM EDT [facility] Sodium, Arterial 144 136 - 145 mmol/L 05/06/2024 5:10 PM EDT [facility] Potassium, Arterial 6.9(HH) 3.6 - 4.9 mmol/L 05/06/2024 5:10 PM EDT [facility] Chloride, Whole Blood 112(H) 97 - 107 mmol/L 05/06/2024 5:10 PM EDT [facility] Glucose, Arterial 177(H) 74 - 99 mg/dL 05/06/2024 5:10 PM EDT [facility] Ionized Calcium, Arterial 4.0(L) 4.6 - 5.1 mg/dL 05/06/2024 5:10 PM EDT [facility] Lactate, Arterial 4.7(H) 0.5 - 1.6 mmol/L 05/06/2024 5:10 PM EDT [facility] Body Temperature 37.0 Celsius 05/06/2024 5:10 PM EDT [facility] pH, Temp Corrected, Arterial 7.38 7.35 - 7.45 05/06/2024 5:10 PM EDT [facility] pCO2, Temp Corrected, Arterial 37 35 - 48 mm Hg 05/06/2024 5:10 PM EDT [facility] pO2, Temp Corrected, Arterial 343(H) 83 - 108 mm Hg 05/06/2024 5:10 PM EDT [facility] Hot Plate [employer] Press Offbearer ID Yuri Hood 05/06/2024 5:10 PM EDT [facility] Blood, Arterial Whole blood specimen / Unknown 05/06/2024 5:08 PM EDT 05/06/2024 5:10 PM EDT us Maite Austin MD LAB POINT OF CARE TE ST DOCKED DEVICE UNSOLICITED RESULTS Final Result [facility] [address] [place] [id number] * (ABNORMAL) POCT arterial blood gas gem (05/06/2024 4:43 PM EDT) pH, Arterial 7.36 7.35 - 7.45 05/06/2024 4:44 PM EDT [facility] pCO2, Arterial 39 35 - 48 mm Hg 05/06/2024 4:44 PM EDT [facility] pO2, Arterial 348(H) 83 - 108 mm Hg 05/06/2024 4:44 PM EDT [facility] SO2, Arterial 100(H) 94 - 98 % 05/06/2024 4:44 PM EDT [facility] Base Excess, Arterial -3.2(L) -2 - 3 mmol/L 05/06/2024 4:44 PM EDT [facility] HCO3, Arterial 22.0 22 - 26 mmol/L 05/06/2024 4:44 PM EDT [facility] Total Hemoglobin, Arterial, Whole Blood 6.9(L) 11.2 - 15.7 g/dL 05/06/2024 4:44 PM EDT [facility] Hematocrit, Arterial 21.0(L) 34.0 - 45.0 % 05/06/2024 4:44 PM EDT [facility] Sodium, Arterial 141 136 - 145 mmol/L 05/06/2024 4:44 PM EDT [facility] Potassium, Arterial 7.3(HH) 3.6 - 4.9 mmol/L 05/06/2024 4:44 PM EDT [facility] Chloride, Whole Blood 112(H) 97 - 107 mmol/L 05/06/2024 4:44 PM EDT [facility] Glucose, Arterial 156(H) 74 - 99 mg/dL 05/06/2024 4:44 PM T [facility] Ionized Calcium, Arterial 4.4(L) 4.6 - 5.1 mg/dL 05/06/2024 4:44 PM EDT [facility] Lactate, Arterial 4.0(H) 0.5 - 1.6 mmol/L 05/06/2024 4:44 PM EDT [facility] Body Temperature 37.0 Celsius 05/06/2024 4:44 PM EDT [facility] pH, Temp Corrected, Arterial 7.36 7.35 - 7.45 05/06/2024 4:44 PM EDT [facility] pCO2, Temp Corrected, Arterial 39 35 - 48 mm Hg 05/06/2024 4:44 PM EDT [facility] pO2, Temp Corrected, Arterial 348(H) 83 - 108 mm Hg 05/06/2024 4:44 PM EDT [facility] Hot Plate [employer] Offbearer ID Yuri Hood 05/06/2024 4:44 PM T [facility] Blood, Arterial Whole blood specimen / Unknown 05/06/2024 4:43 PM EDT 05/06/2024 4:44 PM EDT us Maite Austin MD LAB POINT OF CARE TE ST DOCKED DEVICE UNSOLICITED RESULTS Final Result [facility] [address] [place] [address] * (ABNORMAL) POCT arterial blood gas gem (05/06/2024 4:10 PM EDT) pH, Arterial 7.38 7.35 - 7.45 05/06/2024 4:12 PM EDT [facility] pCO2, Arterial 41 35 - 48 mm Hg 05/06/2024 4:12 PM EDT [facility] pO2, Arterial 276(H) 83 - 108 mm Hg 05/06/2024 4:12 PM EDT [facility] SO2, Arterial 99(H) 94 - 98 % 05/06/2024 4:12 PM EDT [facility] Base Excess, Arterial -0.8 -2 - 3 mmol/L 05/06/2024 4:12 PM EDT [facility] HCO3, Arterial 24.3 22 - 26 mmol/L 05/06/2024 4:12 PM EDT [facility] Total Hemoglobin, Arterial, Whole Blood 7.8(L) 11.2 - 15.7 g/dL 05/06/2024 4:12 PM EDT [facility] Hematocrit, Arterial 23.0(L) 34.0 - 45.0 % 05/06/2024 4:12 PM EDT [facility] Sodium, Arterial 143 136 - 145 mmol/L 05/06/2024 4:12 PM EDT [facility] Potassium, Arterial 6.3(H) 3.6 - 4.9 mmol/L 05/06/2024 4:12 PM EDT [facility] Chloride, Whole Blood 112(H) 97 - 107 mmol/L 05/06/2024 4:12 PM EDT [facility] Glucose, Arterial 134(H) 74 - 99 mg/dL 05/06/2024 4:12 PM EDT [facility] Ionized Calcium, Arterial 4.9 4.6 - 5.1 mg/dL 05/06/2024 4:12 PM EDT [facility] Lactate, Arterial 3.3(H) 0.5 - 1.6 mmol/L 05/06/2024 4:12 PM EDT [facility] Body Temperature 37.0 Celsius 05/06/2024 4:12 PM EDT [facility] pH, Temp Corrected, Arterial 7.38 7.35 - 7.45 05/06/2024 4:12 PM EDT [facility] pCO2, Temp Corrected, Arterial 41 35 - 48 mm Hg 05/06/2024 4:12 PM EDT [facility] pO2, Temp Corrected, Arterial 276(H) 83 - 108 mm Hg 05/06/2024 4:12 PM EDT [facility] Hot Plate [employer] Offbearer ID Yuri Hood 05/06/2024 4:12 PM EDT [facility] Blood, Arterial Whole blood specimen / Unknown 05/06/2024 4:10 PM EDT 05/06/2024 4:12 PM EDT us Maite Austin MD LAB POINT OF CARE TE ST DOCKED DEVICE UNSOLICITED RESULTS Final Result Performing Organization Address City/State/[facility] Co de Phone Number [facility] [address] [place] [address] * (ABNORMAL) POCT arterial blood gas gem (05/06/2024 3:45 PM EDT) pH, Arterial 7.37 7.35 - 7.45 05/06/2024 3:46 PM EDT [facility] pCO2, Arterial 38 35 - 48 mm Hg 05/06/2024 3:46 PM EDT [facility] pO2, Arterial 277(H) 83 - 108 mm Hg 05/06/2024 3:46 PM EDT [facility] SO2, Arterial 99(H) 94 - 98 % 05/06/2024 3:46 PM EDT [facility] Base Excess, Arterial -3.0(L) -2 - 3 mmol/L 05/06/2024 3:46 PM EDT [facility] HCO3, Arterial 22.0 22 - 26 mmol/L 05/06/2024 3:46 PM EDT [facility] Total Hemoglobin, Arterial, Whole Blood 7.3(L) 11.2 - 15.7 g/dL 05/06/2024 3:46 PM EDT [facility] Hematocrit, Arterial 22.0(L) 34.0 - 45.0 % 05/06/2024 3:46 PM EDT [facility] Sodium, Arterial 138 136 - 145 mmol/L 05/06/2024 3:46 PM EDT [facility] Potassium, Arterial 6.9(HH) 3.6 - 4.9 mmol/L 05/06/2024 3:46 PM EDT [facility] Chloride, Whole Blood 112(H) 97 - 107 mmol/L 05/06/2024 3:46 PM EDT [facility] Glucose, Arterial 129(H) 74 - 99 mg/dL 05/06/2024 3:46 PM EDT [facility] Ionized Calcium, Arterial 5.2(H) 4.6 - 5.1 mg/dL 05/06/2024 3:46 PM EDT [facility] Lactate, Arterial 3.2(H) 0.5 - 1.6 mmol/L 05/06/2024 3:46 PM EDT [facility] Body Temperature 37.0 Celsius 05/06/2024 3:46 PM EDT [facility] pH, Temp Corrected, Arterial 7.37 7.35 - 7.45 05/06/2024 3:46 PM EDT [facility] pCO2, Temp Corrected, Arterial 38 35 - 48 mm Hg 05/06/2024 3:46 PM EDT [facility] pO2, Temp Corrected, Arterial 277(H) 83 - 108 mm Hg 05/06/2024 3:46 PM EDT [facility] Hot Plate [employer] Offbearer ID Yuri Hood 05/06/2024 3:46 PM EDT [facility] Blood, Arterial Whole blood specimen / Unknown 05/06/2024 3:45 PM EDT 05/06/2024 3:46 PM EDT us Maite Austin MD LAB POINT OF CARE TE ST DOCKED DEVICE UNSOLICITED RESULTS Final Result [facility] [address] [place] [address] * Prepare Leukocyte Reduced Platelets: 1 Units (05/06/2024 3:04 PM EDT) Pathologist [facility] Product Code [id number] CH BLOO D BANK Dispense Status Transfused BLOOD BANK Blood Expiration Date [id number] BLOOD BANK Unit Number [id number] B LOOD BANK Product Blood Type 5100 BLOOD BANK Blood Type O+ BLOOD BANK Blood Venous blood specimen / Unknown Alfie Khoury MD BLOOD BANK PRODUCT ORDERAB LES Final Result [facility] [address] [place] [address], * (ABNORMAL) POCT arterial blood gas gem (05/06/2024 2:59 PM EDT) pH, Arterial 7.29(L) 7.35 - 7.45 05/06/2024 3:00 PM EDT [facility] pCO2, Arterial 42 35 - 48 mm Hg 05/06/2024 3:00 PM EDT [facility] pO2, Arterial 282(H) 83 - 108 mm Hg 05/06/2024 3:00 PM EDT [facility] SO2, Arterial 99(H) 94 - 98 % 05/06/2024 3:00 PM EDT [facility] Base Excess, Arterial -5.9(L) -2 - 3 mmol/L 05/06/2024 3:00 PM EDT [facility] HCO3, Arterial 20.2(L) 22 - 26 mmol/L 05/06/2024 3:00 PM EDT [facility] Total Hemoglobin, Arterial, Whole Blood 7.9(L) 11.2 - 15.7 g/dL 05/06/2024 3:00 PM EDT [facility] Hematocrit, Arterial 24.0(L) 34.0 - 45.0 % 05/06/2024 3:00 PM EDT [facility] Sodium, Arterial 141 136 - 145 mmol/L 05/06/2024 3:00 PM EDT [facility] Potassium, Arterial 6.5(HH) 3.6 - 4.9 mmol/L 05/06/2024 3:00 PM EDT [facility] Chloride, Whole Blood 113(H) 97 - 107 mmol/L 05/06/2024 3:00 PM EDT [facility] Glucose, Arterial 133(H) 74 - 99 mg/dL 05/06/2024 3:00 PM EDT [facility] Ionized Calcium, Arterial 2.9(LL) 4.6 - 5.1 mg/dL 05/06/2024 3:00 PM EDT [facility] Lactate, Arterial 2.0(H) 0.5 - 1.6 mmol/L 05/06/2024 3:00 PM EDT [facility] Body Temperature 37.0 Celsius 05/06/2024 3:00 PM EDT [facility] pH, Temp Corrected, Arterial 7.29(L) 7.35 - 7.45 05/06/2024 3:00 PM EDT [facility] pCO2, Temp Corrected, Arterial 42 35 - 48 mm Hg 05/06/2024 3:00 PM EDT [facility] pO2, Temp Corrected, Arterial 282(H) 83 - 108 mm Hg 05/06/2024 3:00 PM EDT [facility] Hot Plate [employer] Offbearer ID Yuri Hood 05/06/2024 3:00 PM EDT [facility] Blood, Arterial Whole blood specimen / Unknown 05/06/2024 2:59 PM EDT 05/06/2024 3:00 PM EDT us Maite Austin MD LAB POINT OF CARE TE ST DOCKED DEVICE UNSOLICITED RESULTS Final Result Performing Organization Address City/State/[facility] Co de Phone Number [facility] [address] [place] [id number] * (ABNORMAL) POCT arterial blood gas gem (05/06/2024 2:37 PM EDT) pH, Arterial 7.32(L) 7.35 - 7.45 05/06/2024 2:38 PM EDT [facility] pCO2, Arterial 41 35 - 48 mm Hg 05/06/2024 2:38 PM EDT [facility] pO2, Arterial 201(H) 83 - 108 mm Hg 05/06/2024 2:38 PM EDT [facility] SO2, Arterial 99(H) 94 - 98 % 05/06/2024 2:38 PM EDT [facility] Base Excess, Arterial -4.7(L) -2 - 3 mmol/L 05/06/2024 2:38 PM EDT [facility] HCO3, Arterial 21.1(L) 22 - 26 mmol/L 05/06/2024 2:38 PM EDT [facility] Total Hemoglobin, Arterial, Whole Blood 9.2(L) 11.2 - 15.7 g/dL 05/06/2024 2:38 PM EDT [facility] Hematocrit, Arterial 28.0(L) 34.0 - 45.0 % 05/06/2024 2:38 PM EDT [facility] Sodium, Arterial 134(L) 136 - 145 mmol/L 05/06/2024 2:38 PM EDT [facility] Potassium, Arterial 7.8(HH) 3.6 - 4.9 mmol/L 05/06/2024 2:38 PM EDT [facility] Chloride, Whole Blood 106 97 - 107 mmol/L 05/06/2024 2:38 PM EDT [facility] Glucose, Arterial 159(H) 74 - 99 mg/dL 05/06/2024 2:38 PM EDT [facility] Ionized Calcium, Arterial 3.3(L) 4.6 - 5.1 mg/dL 05/06/2024 2:38 PM EDT [facility] Lactate, Arterial 2.2(H) 0.5 - 1.6 mmol/L 05/06/2024 2:38 PM EDT [facility] Body Temperature 37.0 Celsius 05/06/2024 2:38 PM EDT [facility] pH, Temp Corrected, Arterial 7.32(L) 7.35 - 7.45 05/06/2024 2:38 PM EDT [facility] pCO2, Temp Corrected, Arterial 41 35 - 48 mm Hg 05/06/2024 2:38 PM EDT [facility] pO2, Temp Corrected, Arterial 201(H) 83 - 108 mm Hg 05/06/2024 2:38 PM EDT [facility] Hot Plate [employer] Offbearer ID Yuri Hood 05/06/2024 2:38 PM EDT [facility] Blood, Arterial Whole blood specimen / Unknown 05/06/2024 2:37 PM EDT 05/06/2024 2:38 PM EDT us Maite Austin MD LAB POINT OF CARE TE ST DOCKED DEVICE UNSOLICITED RESULTS Final Result [facility] [address] [place] [id number] * (ABNORMAL) POCT arterial blood gas gem (05/06/2024 2:11 PM EDT) pH, Arterial 7.34(L) 7.35 - 7.45 05/06/2024 2:12 PM EDT [facility] pCO2, Arterial 42 35 - 48 mm Hg 05/06/2024 2:12 PM EDT [facility] pO2, Arterial 272(H) 83 - 108 mm Hg 05/06/2024 2:12 PM EDT [facility] SO2, Arterial 100(H) 94 - 98 % 05/06/2024 2:12 PM EDT [facility] Base Excess, Arterial -2.9(L) -2 - 3 mmol/L 05/06/2024 2:12 PM EDT [facility] HCO3, Arterial 22.7 22 - 26 mmol/L 05/06/2024 2:12 PM EDT [facility] Total Hemoglobin, Arterial, Whole Blood 8.8(L) 11.2 - 15.7 g/dL 05/06/2024 2:12 PM EDT [facility] Hematocrit, Arterial 26.0(L) 34.0 - 45.0 % 05/06/2024 2:12 PM EDT [facility] Sodium, Arterial 131(L) 136 - 145 mmol/L 05/06/2024 2:12 PM EDT [facility] Potassium, Arterial 7.9(HH) 3.6 - 4.9 mmol/L 05/06/2024 2:12 PM EDT [facility] Chloride, Whole Blood 104 97 - 107 mmol/L 05/06/2024 2:12 PM EDT [facility] Glucose, Arterial 165(H) 74 - 99 mg/dL 05/06/2024 2:12 PM EDT [facility] Ionized Calcium, Arterial 3.4(L) 4.6 - 5.1 mg/dL 05/06/2024 2:12 PM EDT [facility] Lactate, Arterial 2.3(H) 0.5 - 1.6 mmol/L 05/06/2024 2:12 PM EDT [facility] Body Temperature 37.0 Celsius 05/06/2024 2:12 PM EDT [facility] pH, Temp Corrected, Arterial 7.34(L) 7.35 - 7.45 05/06/2024 2:12 PM EDT [facility] pCO2, Temp Corrected, Arterial 42 35 - 48 mm Hg 05/06/2024 2:12 PM EDT [facility] pO2, Temp Corrected, Arterial 272(H) 83 - 108 mm Hg 05/06/2024 2:12 PM EDT [facility] Hot Plate [employer] Offbearer Yuri Lunsford 05/06/2024 2:12 PM EDT [facility] Blood, Arterial Whole blood specimen / Unknown 05/06/2024 2:11 PM EDT 05/06/2024 2:12 PM EDT us Maite Austin MD LAB POINT OF CARE TE ST DOCKED DEVICE UNSOLICITED RESULTS Final Result [facility] [address] [place] [address] * (ABNORMAL) POCT arterial blood gas gem (05/06/2024 1:33 PM EDT) pH, Arterial 7.31(L) 7.35 - 7.45 05/06/2024 1:34 PM EDT [facility] pCO2, Arterial 46 35 - 48 mm Hg 05/06/2024 1:34 PM EDT [facility] pO2, Arterial 332(H) 83 - 108 mm Hg 05/06/2024 1:34 PM EDT [facility] SO2, Arterial 100(H) 94 - 98 % 05/06/2024 1:34 PM EDT [facility] Base Excess, Arterial -2.9(L) -2 - 3 mmol/L 05/06/2024 1:34 PM EDT [facility] HCO3, Arterial 23.2 22 - 26 mmol/L 05/06/2024 1:34 PM EDT [facility] Total Hemoglobin, Arterial, Whole Blood 6.8(L) 11.2 - 15.7 g/dL 05/06/2024 1:34 PM EDT [facility] Hematocrit, Arterial 20.0(L) 34.0 - 45.0 % 05/06/2024 1:34 PM EDT [facility] Sodium, Arterial 133(L) 136 - 145 mmol/L 05/06/2024 1:34 PM EDT [facility] Potassium, Arterial 6.8(HH) 3.6 - 4.9 mmol/L 05/06/2024 1:34 PM EDT [facility] Chloride, Whole Blood 104 97 - 107 mmol/L 05/06/2024 1:34 PM EDT [facility] Glucose, Arterial 129(H) 74 - 99 mg/dL 05/06/2024 1:34 PM EDT [facility] Ionized Calcium, Arterial 3.5(L) 4.6 - 5.1 mg/dL 05/06/2024 1:34 PM EDT [facility] Lactate, Arterial 2.1(H) 0.5 - 1.6 mmol/L 05/06/2024 1:34 PM EDT [facility] Body Temperature 37.0 Celsius 05/06/2024 1:34 PM EDT [facility] pH, Temp Corrected, Arterial 7.31(L) 7.35 - 7.45 05/06/2024 1:34 PM EDT [facility] pCO2, Temp Corrected, Arterial 46 35 - 48 mm Hg 05/06/2024 1:34 PM EDT [facility] pO2, Temp Corrected, Arterial 332(H) 83 - 108 mm Hg 05/06/2024 1:34 PM EDT [facility] Hot [employer] Offbearer ID Yuri Hood 05/06/2024 1:34 PM EDT [facility] Blood, Arterial Whole blood specimen / Unknown 05/06/2024 1:33 PM EDT 05/06/2024 1:34 PM EDT us Maite Austin MD LAB POINT OF CARE TE ST DOCKED DEVICE UNSOLICITED RESULTS Final Result [facility] [address] [place] [address] * (ABNORMAL) POCT arterial blood gas gem (05/06/2024 1:05 PM EDT) pH, Arterial 7.35 7.35 - 7.45 05/07/2024 7:58 AM EDT [facility] pCO2, Arterial 45 35 - 48 mm Hg 05/07/2024 7:58 AM EDT [facility] pO2, Arterial 289(H) 83 - 108 mm Hg 05/07/2024 7:58 AM T [facility] SO2, Arterial 99(H) 94 - 98 % 05/07/2024 7:58 AM T [facility] Base Excess, Arterial -1.1 -2 - 3 mmol/L 05/07/2024 7:58 AM [facility] HCO3, Arterial 24.8 22 - 26 mmol/L 05/07/2024 7:58 AM T [facility] Total Hemoglobin, Arterial, Whole Blood <6.0(LL) 11.2 - 15.7 g/dL 05/07/2024 7:58 AM [facility] Sodium, Arterial 134(L) 136 - 145 mmol/L 05/07/2024 7:58 AM [facility] Potassium, Arterial 5.9(H) 3.6 - 4.9 mmol/L 05/07/2024 7:58 AM [facility] Chloride, Whole Blood 102 97 - 107 mmol/L 05/07/2024 7:58 AM [facility] Glucose, Arterial 96 74 - 99 mg/dL 05/07/2024 7:58 AM [facility] Ionized Calcium, Arterial 3.5(L) 4.6 - 5.1 mg/dL 05/07/2024 7:58 AM [facility] Lactate, Arterial 1.6 0.5 - 1.6 mmol/L 05/07/2024 7:58 AM [facility] Body Temperature 37.0 Celsius 05/07/2024 7:58 AM [facility] pH, Temp Corrected, Arterial 7.35 7.35 - 7.45 05/07/2024 7:58 AM [facility] pCO2, Temp Corrected, Arterial 45 35 - 48 mm Hg 05/07/2024 7:58 AM [facility] pO2, Temp Corrected, Arterial 289(H) 83 - 108 mm Hg 05/07/2024 7:58 AM [facility] [employer] Offbearer ID Alfie Turner 05/07/2024 7:58 AM [facility] Blood, Arterial Whole blood specimen / Unknown 05/06/2024 1:05 PM EDT 05/07/2024 7:58 AM EDT us Maite Austin MD LAB POINT OF CARE TE ST DOCKED DEVICE UNSOLICITED RESULTS Final Result [facility] [address] [place] [address] * (ABNORMAL) POCT arterial blood gas gem (05/06/2024 11:25 AM EDT) pH, Arterial 7.23(LL) 7.35 - 7.45 05/06/2024 11:30 AM EDT [facility] pCO2, Arterial 64(HH) 35 - 48 mm Hg 05/06/2024 11:30 AM EDT [facility] pO2, Arterial 119(H) 83 - 108 mm Hg 05/06/2024 11:30 AM EDT [facility] SO2, Arterial 100(H) 94 - 98 % 05/06/2024 11:30 AM EDT [facility] Base Excess, Arterial -1.8 -2 - 3 mmol/L 05/06/2024 11:30 AM EDT [facility] HCO3, Arterial 26.8(H) 22 - 26 mmol/L 05/06/2024 11:30 AM EDT [facility] Total Hemoglobin, Arterial, Whole Blood 11.9 11.2 - 15.7 g/dL 05/06/2024 11:30 AM EDT [facility] Hematocrit, Arterial 36.0 34.0 - 45.0 % 05/06/2024 11:30 AM EDT [facility] Sodium, Arterial 136 136 - 145 mmol/L 05/06/2024 11:30 AM EDT [facility] Potassium, Arterial 3.8 3.6 - 4.9 mmol/L 05/06/2024 11:30 AM EDT [facility] Chloride, Whole Blood 103 97 - 107 mmol/L 05/06/2024 11:30 AM EDT [facility] Glucose, Arterial 136(H) 74 - 99 mg/dL 05/06/2024 11:30 AM EDT [facility] Ionized Calcium, Arterial 4.8 4.6 - 5.1 mg/dL 05/06/2024 11:30 AM EDT [facility] Lactate, Arterial 1.0 0.5 - 1.6 mmol/L 05/06/2024 11:30 AM EDT [facility] Body Temperature 37.0 Celsius 05/06/2024 11:30 AM EDT [facility] pH, Temp Corrected, Arterial 7.23(LL) 7.35 - 7.45 05/06/2024 11:30 AM EDT [facility] pCO2, Temp Corrected, Arterial 64(HH) 35 - 48 mm Hg 05/06/2024 11:30 AM EDT [facility] pO2, Temp Corrected, Arterial 119(H) 83 - 108 mm Hg 05/06/2024 11:30 AM EDT [facility] [employer] Offbearer ID Jake Angeles 05/06/2024 11:30 AM EDT [facility] Blood, Arterial Whole blood specimen / Unknown 05/06/2024 11:25 AM EDT 05/06/2024 11:30 AM EDT Erum Bahena MD LAB POINT OF CARE TEST DOCKED DEVICE UNSOLICITED RESULTS Final Result Performing Organization Address City/State/[facility] Co de Phone Number [facility] [address] [place] [address] * (ABNORMAL) QPLUS (05/06/2024 10:36 AM EDT) Clot Time 161 104 - 166 Seconds 05/06/2024 10:49 AM EDT [facility] Clot Time Ratio 1.2 0.8 - 1.2 10:49 AM EDT [facility] Comment:The Clot Time Ratio (CTR) is [...] - 29.8 hectoPascals 05/06/2024 10:49 AM EDT [facility] Fibrinogen Contribution to Clot Stiffness 4.5(H) 1.0 - 3.7 hectoPascals 05/06/2024 10:49 AM EDT [facility] Heparinase Clot Time 134 103 - 153 Seconds 05/06/2024 10:49 AM EDT [facility] [employer] Offbearer ID Alfie Mueller 05/06/2024 10:49 AM EDT [facility] [facility] Device ID [id number] 05/06/2024 10:49 AM EDT [facility] Whole Blood 05/06/2024 10:3 6 AM EDT 05/06/2024 10:49 AM EDT us Erum Bahena MD LAB POINT OF CARE TEST DOCKED DEVICE UNSOLICITED RESULTS Final Result [facility] [address] [place] [address] * (ABNORMAL) POCT arterial blood gas gem (05/06/2024 9:31 AM EDT) pH, Arterial 7.36 7.35 - 7.45 05/06/2024 9:36 AM EDT [facility] pCO2, Arterial 47 35 - 48 mm Hg 05/06/2024 9:36 AM EDT [facility] pO2, Arterial 250(H) 83 - 108 mm Hg 05/06/2024 9:36 AM EDT [facility] SO2, Arterial 100(H) 94 - 98 % 05/06/2024 9:36 AM EDT [facility] Base Excess, Arterial 0.7 -2 - 3 mmol/L 05/06/2024 9:36 AM EDT [facility] HCO3, Arterial 26.6(H) 22 - 26 mmol/L 05/06/2024 9:36 AM EDT [facility] Total Hemoglobin, Arterial, Whole Blood 12.2 11.2 - 15.7 g/dL 05/06/2024 9:36 AM EDT [facility] Hematocrit, Arterial 37.0 34.0 - 45.0 % 05/06/2024 9:36 AM EDT [facility] Sodium, Arterial 136 136 - 145 mmol/L 05/06/2024 9:36 AM EDT [facility] Potassium, Arterial 4.0 3.6 - 4.9 mmol/L 05/06/2024 9:36 AM EDT [facility] Chloride, Whole Blood 103 97 - 107 mmol/L 05/06/2024 9:36 AM EDT [facility] Glucose, Arterial 94 74 - 99 mg/dL 05/06/2024 9:36 AM EDT [facility] Ionized Calcium, Arterial 4.8 4.6 - 5.1 mg/dL 05/06/2024 9:36 AM EDT [facility] Lactate, Arterial 1.4 0.5 - 1.6 mmol/L 05/06/2024 9:36 AM EDT [facility] Body Temperature 37.0 Celsius 05/06/2024 9:36 AM EDT [facility] pH, Temp Corrected, Arterial 7.36 7.35 - 7.45 05/06/2024 9:36 AM EDT [facility] pCO2, Temp Corrected, Arterial 47 35 - 48 mm Hg 05/06/2024 9:36 AM EDT [facility] pO2, Temp Corrected, Arterial 250(H) 83 - 108 mm Hg 05/06/2024 9:36 AM EDT [facility] Hot Plate Plywood Press Offbearer ID Alfie Turner 05/06/2024 9:36 AM EDT [facility] Blood, Arterial Whole blood specimen / Unknown 05/06/2024 9:31 AM EDT 05/06/2024 9:36 AM EDT Erum Bahena MD LAB POINT OF CARE TEST DOCKED DEVICE UNSOLICITED RESULTS Final Result [facility] [address] [place] [address] * Prepare Leukocyte Reduced RBC: 4 Units (05/06/2024 9:04 AM EDT) Product Code [id number] [facility] BLOO D BANK Dispense Status Transfused BLOOD BANK Blood Expiration Date [id number] BLOOD BANK Unit Number [id number] CH B LOOD BANK Product Blood Type 7300 BLOOD BANK Blood Type B+ CH BLOOD BANK Crossmatch Compatible CH BLOOD BANK Product Code [id number] CH BLOO D BANK Dispense Status Transfused BLOOD BANK Blood Expiration Date [id number] BLOOD BANK Unit Number [id number] CH B LOOD BANK Product Blood Type 7300 CH BLOOD BANK Blood Type B+ CH BLOOD BANK Crossmatch Compatible CH BLOOD BANK Product Code [id number] CH BLOO D BANK Dispense Status Transfused CH BLOOD BANK Blood Expiration Date CH BLOOD BANK Unit Number [id number] CH B LOOD BANK Product Blood Type 7300 CH BLOOD BANK Blood Type B+ CH BLOOD BANK Crossmatch Compatible CH BLOOD BANK Product Code [id number] CH BLOO D BANK Dispense Status Transfused CH BLOOD BANK Blood Expiration Date BLOOD BANK Unit Number [id number] CH B LOOD BANK Product Blood Type 7300 CH BLOOD BANK Blood Type B+ CH BLOOD BANK Crossmatch Compatible CH BLOOD BANK Other us Shola Sheridan [employer] BLOOD BANK PRODUCT ORDERABLE S Final Result Performing Organization Address City/[facility]/ZIP Co de Phone Number BLOOD BANK [address] [place] [address], [place] * Light Green Top (05/06/2024 12:07 AM EDT) Extra Hold for add-ons 05/06/2024 3:01 AM EDT [facility] Comment:Auto resulted. Blood Venous blood specimen / Unknown 05/06/2024 12:07 AM EDT 05/06/2024 12:26 AM EDT us Erum Bahena MD LAB BLOOD ORDERABLES Namrata l Result [facility] [address] [place] [address] * Anti Xa Level by Unfractionated Heparin - Heparin Drip Titration (05/06/2024 12:07 AM EDT) Anti Xa Level Unfractionated Heparin 0.36 <1.00 IU/mL LAB COAGULATION METHOD 05/06/2024 12:51 AM EDT [facility] Blood Venous blood specimen / Unknown Venipuncture / Unknown 05/06/2024 12:07 AM EDT 05/06/2024 12:26 AM EDT Narrative [facility] - 05/06/2024 12:51 AM EDT Therapeutic Range: UFH Full Dose and ACS/GA protocols*: 0.30 - 0.70 IU/mL UFH Low Dose protocol*: 0.25 - 0.50 IU/mL UFH prophylaxis: Not established Marylu Carvajal [employer], DNP LAB BLOOD ORDERABLES Final Result [facility] [address] [place] [address] * (ABNORMAL) CBC W/O differential - Hit surveillance (05/06/2024 12:07 AM EDT) WBC Count 15.16(H) 3.70 - 10.30 10*3/uL LAB HEMATOLOGY METHOD 05/06/2024 12:36 AM EDT [facility] RBC Count 3.96 3.90 - 5.20 10*6/uL LAB HEMATOLOGY METHOD 05/06/2024 12:36 AM EDT [facility] HGB 12.1 11.2 - 15.7 g/dL LAB HEMATOLOGY METHOD 05/06/2024 12:36 AM EDT [facility] HCT 34.5 34.0 - 45.0 % LAB HEMATOLOGY METHOD 05/06/2024 12:36 AM EDT [facility] Platelet Count 390(H) 155 - 369 10*3/uL LAB HEMATOLOGY METHOD 05/06/2024 12:36 AM EDT [facility] MCV 87 79 - 98 fL LAB HEMATOLOGY METHOD 05/06/2024 12:36 AM EDT [facility] MCH 30.6 26.0 - 32.0 pg LAB HEMATOLOGY METHOD 05/06/2024 12:36 AM EDT [facility] MCHC 35.1 30.7 - 35.5 g/dL LAB HEMATOLOGY METHOD 05/06/2024 12:36 AM EDT [facility] RDW 13.2 11.5 - 14.5 % LAB HEMATOLOGY METHOD 05/06/2024 12:36 AM EDT [facility] MPV 10.3 8.8 - 12.5 fL LAB HEMATOLOGY METHOD 05/06/2024 12:36 AM EDT [facility] nRBC 0.0 <=0.0 per 100 WBCs LAB HEMATOLOGY METHOD 05/06/2024 12:36 AM EDT [facility] Blood Venous blood specimen / Unknown Venipuncture / Unknown 05/06/2024 12:07 AM EDT 05/06/2024 12:25 AM EDT Marylu Carvajal APRN, DNP LAB BLOOD ORDERABLES Final Result [facility] [address] [place] [address] * (ABNORMAL) P2Y12 Platelet Receptor Blockade, Verify Now PRU (05/06/2024 12:07 AM EDT) P2Y12 PRU 134(L) 194 - 418 PRU 05/06/2024 12:32 AM EDT [facility] Blood Venous blood specimen / Unknown Venipuncture / Unknown 05/06/2024 12:07 AM EDT 05/06/2024 12:23 AM EDT Narrative [facility] - 05/06/2024 12:32 AM EDT P2Y12 [...] to the clinician. Testing performed in the [facility]. Trinity Yousif APRN LAB BLOOD ORDERABLES Final Res ult [facility] [address] [place] [address] * Type and Screen (05/05/2024 4:16 PM [...] TEST ORDERABLES Final Result Performing Organization Address [facility] de Phone Number BLOOD BANK [address] [place] [address], * Anti Xa Level by Unfractionated Heparin - Heparin Drip Titration (05/05/2024 6:19 AM EDT) Pathologist [facility] Anti Xa Level Unfractionated Heparin 0.39 <1.00 IU/mL LAB COAGULATION METHOD 05/05/2024 7:07 AM EDT [facility] Blood Venous blood specimen / Unknown Venipuncture / Unknown 05/05/2024 6:19 AM EDT 05/05/2024 6:32 AM EDT Narrative [facility] - 05/05/2024 7:07 AM EDT Therapeutic Range: UFH Full Dose and ACS/GA protocols*: 0.30 - 0.70 IU/mL UFH Low Dose protocol*: 0.25 - 0.50 IU/mL UFH prophylaxis: Not established Marylu Carvajal APRN, DNP LAB BLOOD ORDERABLES Final Result Performing Organization Address City/[facility]/ZIP Co de Phone Number [facility] [address] [place] [address] * (ABNORMAL) CBC W/O differential - Hit surveillance (05/05/2024 12:32 AM EDT) WBC Count 13.31(H) 3.70 - 10.30 10*3/uL LAB HEMATOLOGY METHOD 05/05/2024 12:56 AM EDT [facility] RBC Count 3.98 3.90 - 5.20 10*6/uL LAB HEMATOLOGY METHOD 05/05/2024 12:56 AM EDT [facility] HGB 12.2 11.2 - 15.7 g/dL LAB HEMATOLOGY METHOD 05/05/2024 12:56 AM EDT [facility] HCT 35.1 34.0 - 45.0 % LAB HEMATOLOGY METHOD 05/05/2024 12:56 AM EDT [facility] Platelet Count 378(H) 155 - 369 10*3/uL LAB HEMATOLOGY METHOD 05/05/2024 12:56 AM EDT [facility] MCV 88 79 - 98 fL LAB HEMATOLOGY METHOD 05/05/2024 12:56 AM EDT [facility] MCH 30.7 26.0 - 32.0 pg LAB HEMATOLOGY METHOD 05/05/2024 12:56 AM EDT [facility] MCHC 34.8 30.7 - 35.5 g/dL LAB HEMATOLOGY METHOD 05/05/2024 12:56 AM EDT [facility] RDW 13.2 11.5 - 14.5 % LAB HEMATOLOGY METHOD 05/05/2024 12:56 AM EDT [facility] MPV 10.1 8.8 - 12.5 fL LAB HEMATOLOGY METHOD 05/05/2024 12:56 AM EDT [facility] nRBC 0.0 <=0.0 per 100 WBCs LAB HEMATOLOGY METHOD 05/05/2024 12:56 AM EDT [facility] Blood Venous blood specimen / Unknown Venipuncture / Unknown 05/05/2024 12:32 AM EDT 05/05/2024 12:40 AM EDT Marylu Carvajal [employer]BLER, DNP LAB BLOOD ORDERABLES Final Result [facility] [address] [place] [address] * (ABNORMAL) P2Y12 Platelet Receptor Blockade, Verify Now PRU (05/05/2024 12:32 AM EDT) P2Y12 PRU 132(L) 194 - 418 PRU 05/05/2024 12:56 AM EDT [facility] Blood Venous blood specimen / Unknown Venipuncture / Unknown 05/05/2024 12:32 AM EDT 05/05/2024 12:41 AM EDT Narrative [facility] - 05/05/2024 12:56 AM EDT P2Y12 [...] to the clinician. Testing performed in the [facility]. Beamly Trinity Metropoliste [employer]SEMBLER LAB BLOOD ORDERABLES Final Res ult [facility] [address] [place] [address] * Magnesium (05/05/2024 12:32 AM EDT) Magnesium, Plasma 1.9 1.9 - 2.4 mg/dL 05/05/2024 1:14 AM EDT [facility] Blood Venous blood specimen / Unknown Venipuncture / Unknown 05/05/2024 12:32 AM EDT 05/05/2024 12:40 AM EDT [employer] S Yousif [employer]ER LAB BLOOD ORDERABLES Final Res ult [facility] [address] [place] [address] * (ABNORMAL) Comprehensive metabolic panel (05/05/2024 12:32 AM EDT) Glucose, Plasma 147(H) 74 - 99 mg/dL 05/05/2024 1:14 AM EDT [facility] BUN, Plasma 11 7 - 21 mg/dL 05/05/2024 1:14 AM EDT [facility] Creatinine, Plasma 0.84 0.60 - 1.10 mg/dL 05/05/2024 1:14 AM EDT [facility] BUN/Creatinine Ratio 13 05/05/2024 1:14 AM EDT [facility] Sodium, Plasma 136 136 - 145 mmol/L 05/05/2024 1:14 AM EDT [facility] Potassium, Plasma 3.9 3.6 - 4.9 mmol/L 05/05/2024 1:14 AM EDT [facility] Chloride, Plasma 103 97 - 107 mmol/L 05/05/2024 1:14 AM EDT [facility] CO2, Plasma 20(L) 22 - 29 mmol/L 05/05/2024 1:14 AM EDT [facility] Anion Gap 13 6 - 16 mmol/L 05/05/2024 1:14 AM EDT [facility] Total Calcium, Plasma 8.6(L) 8.9 - 10.2 mg/dL 05/05/2024 1:14 AM EDT [facility] Total Protein 6.5 6.3 - 7.9 g/dL 05/05/2024 1:14 AM EDT [facility] Albumin, Plasma 3.7 3.5 - 5.2 g/dL 05/05/2024 1:14 AM EDT [facility] AST, Plasma 36(H) 10 - 35 U/L 05/05/2024 1:14 AM EDT [facility] Comment:Hemolyzed, result ma y be falsely increased. ALT, Plasma 28 10 - 35 U/L 05/05/2024 1:14 AM EDT [facility] Alkaline Phosphatase, Plasma 142(H) 35 - 104 U/L 05/05/2024 1:14 AM EDT [facility] Total Bilirubin, Plasma <0.2(L) 0.2 - 1.1 mg/dL 05/05/2024 1:14 AM EDT [facility] eGFRcr 82.7 mL/min/1.7 3m*2 05/05/2024 1:14 AM EDT [facility] Comment:Reported eGFRcr in m L/min/1.73m2 is based the CKD-EPI 2020 equation that does not use a race coefficient. Blood Venous blood specimen / Unknown Venipuncture / Unknown 05/05/2024 12:32 AM EDT 05/05/2024 12:40 AM EDT Trinity Yousif APRN LAB BLOOD ORDERABLES Final Res ult Performing Organization Address [facility] Co de Phone Number [facility] [address] [place] [address] * Anti Xa Level by Unfractionated Heparin - Heparin Drip Titration (05/05/2024 12:32 AM EDT) Anti Xa Level Unfractionated Heparin 0.32 <1.00 IU/mL LAB COAGULATION METHOD 05/05/2024 1:04 AM EDT [facility] Blood Venous blood specimen / Unknown Venipuncture / Unknown 05/05/2024 12:32 AM EDT 05/05/2024 12:40 AM EDT Narrative [facility] - 05/05/2024 1:04 AM EDT Therapeutic Range: UFH Full Dose and ACS/GA protocols*: 0.30 - 0.70 IU/mL UFH Low Dose protocol*: 0.25 - 0.50 IU/mL UFH prophylaxis: Not established Marylu Carvajal APRN, DNP LAB BLOOD ORDERABLES Final Result Performing Organization Address City/[facility]/ZIP Co de Phone Number [facility] [address] [place] [address] * Anti Xa Level by Unfractionated Heparin - Heparin Drip Titration (05/04/2024 4:05 PM EDT) Anti Xa Level Unfractionated Heparin 0.23 <1.00 IU/mL LAB COAGULATION METHOD 05/04/2024 4:47 PM EDT [facility] Blood Venous blood specimen / Unknown Venipuncture / Unknown 05/04/2024 4:05 PM EDT 05/04/2024 4:15 PM EDT Narrative [facility] - 05/04/2024 4:47 PM EDT Therapeutic Range: UFH Full Dose and ACS/GA protocols*: 0.30 - 0.70 IU/mL UFH Low Dose protocol*: 0.25 - 0.50 IU/mL UFH prophylaxis: Not established Marylu Carvajal [employer]BLER, DNP LAB BLOOD ORDERABLES Final Result [facility] [address] [place] [address] * (ABNORMAL) P2Y12 Platelet Receptor Blockade, Verify Now PRU (05/04/2024 9:36 AM EDT) P2Y12 PRU 78(L) 194 - 418 PRU 05/04/2024 10:04 AM EDT [facility] Blood Venous blood specimen / Unknown Venipuncture / Unknown 05/04/2024 9:36 AM EDT 05/04/2024 9:46 AM EDT Narrative [facility] - 05/04/2024 10:04 AM EDT P2Y12 [...] to the clinician. Testing performed in the [facility]. Trinity Anne Benja [employer]ER LAB BLOOD ORDERABLES Final Res ult Performing Organization Address [facility]/ZIP Co de Phone Number [facility] [address] [place] [address] * Anti Xa Level by Unfractionated Heparin - Heparin Drip Titration (05/04/2024 9:36 AM EDT) Anti Xa Level Unfractionated Heparin <0.11 <1.00 IU/mL LAB COAGULATION METHOD 05/04/2024 10:13 AM EDT [facility] Blood Venous blood specimen / Unknown Venipuncture / Unknown 05/04/2024 9:36 AM EDT 05/04/2024 9:47 AM EDT Narrative [facility] - 05/04/2024 10:13 AM EDT Therapeutic Range: UFH Full Dose and ACS/GA protocols*: 0.30 - 0.70 IU/mL UFH Low Dose protocol*: 0.25 - 0.50 IU/mL UFH prophylaxis: Not established Marylu Carvajal APRN, DNP LAB BLOOD ORDERABLES Final Result Performing Organization Address [facility] Co de Phone Number [facility] [address] [place] [address] * (ABNORMAL) POCT glucose meter (05/04/2024 5:13 AM EDT) POCT Glucose 114(H) 74 - 99 mg/dL 05/04/2024 5:15 AM EDT [facility] Comment:Accuracy of a glucos e [...] Comment 05/04/2024 5:15 AM EDT [facility] Hot Plate [employer]wood Press Offbearer ID Daisy Toth 05/04/2024 5:15 AM EDT [facility] Device ID [id number] 05/04/2024 5:15 AM EDT [facility] Specimen Type POC Capillary 05/04/2024 5:15 AM EDT [facility] Blood Capillary blood specimen / Unknown 05/04/2024 5:13 AM EDT 05/04/2024 5:15 AM EDT Erum Bahena MD LAB POINT OF CARE TEST DOCKED DEVICE UNSOLICITED RESULTS Final Result [facility] [address] [place] [address] * Anti Xa Level by Unfractionated Heparin - Heparin Drip Titration (05/04/2024 2:50 AM EDT) Anti Xa Level Unfractionated Heparin 0.32 <1.00 IU/mL LAB COAGULATION METHOD 05/04/2024 3:16 AM EDT [facility] Blood Venous blood specimen / Unknown Venipuncture / Unknown 05/04/2024 2:50 AM EDT 05/04/2024 2:56 AM EDT Narrative [facility] - 05/04/2024 3:16 AM EDT Therapeutic Range: UFH Full Dose and ACS/GA protocols*: 0.30 - 0.70 IU/mL UFH Low Dose protocol*: 0.25 - 0.50 IU/mL UFH prophylaxis: Not established Marylu Carvajal [employer]BLER, DNP LAB BLOOD ORDERABLES Final Result [facility] [address] [place] [address] * (ABNORMAL) CBC W/O differential - Hit surveillance (05/04/2024 2:50 AM EDT) WBC Count 12.80(H) 3.70 - 10.30 10*3/uL LAB HEMATOLOGY METHOD 05/04/2024 3:27 AM EDT [facility] RBC Count 3.92 3.90 - 5.20 10*6/uL LAB HEMATOLOGY METHOD 05/04/2024 3:27 AM EDT [facility] HGB 11.8 11.2 - 15.7 g/dL LAB HEMATOLOGY METHOD 05/04/2024 3:27 AM EDT [facility] HCT 34.8 34.0 - 45.0 % LAB HEMATOLOGY METHOD 05/04/2024 3:27 AM EDT [facility] Platelet Count 372(H) 155 - 369 10*3/uL LAB HEMATOLOGY METHOD 05/04/2024 3:27 AM EDT [facility] MCV 89 79 - 98 fL LAB HEMATOLOGY METHOD 05/04/2024 3:27 AM EDT [facility] MCH 30.1 26.0 - 32.0 pg LAB HEMATOLOGY METHOD 05/04/2024 3:27 AM EDT [facility] MCHC 33.9 30.7 - 35.5 g/dL LAB HEMATOLOGY METHOD 05/04/2024 3:27 AM EDT [facility] RDW 13.3 11.5 - 14.5 % LAB HEMATOLOGY METHOD 05/04/2024 3:27 AM EDT [facility] MPV 10.1 8.8 - 12.5 fL LAB HEMATOLOGY METHOD 05/04/2024 3:27 AM EDT [facility] nRBC 0.0 <=0.0 per 100 WBCs LAB HEMATOLOGY METHOD 05/04/2024 3:27 AM EDT [facility] Blood Venous blood specimen / Unknown Venipuncture / Unknown 05/04/2024 2:50 AM EDT 05/04/2024 2:56 AM EDT Marylu Carvajal [employer]BLER, DNP LAB BLOOD ORDERABLES Final Result [facility] [address] [place] [address] * (ABNORMAL) P2Y12 Platelet Receptor Blockade, Verify Now PRU (05/04/2024 2:50 AM EDT) P2Y12 PRU 100(L) 194 - 418 PRU 05/04/2024 3:15 AM EDT [facility] Blood Venous blood specimen / Unknown Venipuncture / Unknown 05/04/2024 2:50 AM EDT 05/04/2024 3:02 AM EDT Narrative [facility] - 05/04/2024 3:15 AM EDT P2Y12 [...] to the clinician. Testing performed in the [facility]. us Shola Sheridan APRN LAB BLOOD ORDERABLES Final R esult [facility] [address] [place] [address] * Magnesium, Plasma (05/04/2024 2:50 AM EDT) Magnesium, Plasma 2.0 1.9 - 2.4 mg/dL 05/04/2024 3:24 AM EDT [facility] Blood Venous blood specimen / Unknown Venipuncture / Unknown 05/04/2024 2:50 AM EDT 05/04/2024 2:56 AM EDT us Marylu Carvjaal APRN, DNP LAB BLOOD ORDERABLES Final Result Performing Organization Address City/[facility]/ZIP Co de Phone Number [facility] [address] [place] [address] * (ABNORMAL) Basic metabolic panel (05/04/2024 2:50 AM EDT) Glucose, Plasma 109(H) 74 - 99 mg/dL 05/04/2024 3:24 AM EDT [facility] BUN, Plasma 12 7 - 21 mg/dL 05/04/2024 3:24 AM EDT [facility] Creatinine, Plasma 0.94 0.60 - 1.10 mg/dL 05/04/2024 3:24 AM EDT [facility] BUN/Creatinine Ratio 13 05/04/2024 3:24 AM EDT [facility] Sodium, Plasma 139 136 - 145 mmol/L 05/04/2024 3:24 AM EDT [facility] Potassium, Plasma 3.5(L) 3.6 - 4.9 mmol/L 05/04/2024 3:24 AM EDT [facility] Chloride, Plasma 104 97 - 107 mmol/L 05/04/2024 3:24 AM EDT [facility] CO2, Plasma 25 22 - 29 mmol/L 05/04/2024 3:24 AM EDT [facility] Anion Gap 10 6 - 16 mmol/L 05/04/2024 3:24 AM EDT [facility] Total Calcium, Plasma 8.4(L) 8.9 - 10.2 mg/dL 05/04/2024 3:24 AM EDT [facility] eGFRcr 72.3 mL/min/1.7 3m*2 05/04/2024 3:24 AM EDT [facility] Comment:Reported eGFRcr in m L/min/1.73m2 is based the CKD-EPI 2020 equation that does not use a race coefficient. Blood Venous blood specimen / Unknown Venipuncture / Unknown 05/04/2024 2:50 AM EDT 05/04/2024 2:56 AM EDT Marylu Carvajal [employer]BLER, DNP LAB BLOOD ORDERABLES Final Result [facility] [address] [place] [address] * XR Chest 2 Views (05/03/2024 12:19 [...] Mary Phelps MD on 05/03/2024 1:34 PM Shola Sheridan [employer] IMG XR PROCEDURES Final Resu lt * Pulmonary function testing (05/03/2024 8:37 AM EDT) RFR1EYA 2.23 L 05/03/2024 8:31 AM EDT VYAIRE [...] 1.84 05/03/2024 8:31 AM EDT VYAIRE PFT [id number] -2.47 05/03/2024 8:31 AM EDT VYAIRE PFT FEV1_Pre%Pred 65 % % 05/03/2024 8:31 AM EDT V[facility]AIRE [facility] 05/03/2024 8:31 AM EDT VYAIRE PFT FEV1 Z-SCORE -2.47 05/03/2024 8:31 AM EDT VYAIRE PFT FEV1/FVC PRE 69.79 % 05/03/2024 8:31 AM EDT VYAIRE PFT XHM5ELJOSUY 80 05/03/2024 8:31 AM EDT VYAIRE PFT AJR6JXGKNS 69 05/03/2024 8:31 AM EDT VYAIRE PFT WBD0WPGOVDNFGAOU -1.53 05/04/19 8:31 AM EDT VYAIRE PFT WUT6NOECAB%PRED 87 % % 8:31 AM EDT VYAIRE PFT [id number] [facility] GLI (2011) 05/03/2024 8:31 AM EDT VYAIRE PFT WNS5MDOICGAWO -2 05/03/2024 8:31 AM EDT VYAIRE PFT HNI16-84% PRE 0.96 L/s 05/03/2024 8:31 AM EDT VYAIRE PFT RQY67-45%_Pred 2.36 05/03/2024 8:31 AM EDT VYAIRE PFT MHE2340%LLN 1.27 05/03/2024 8:31 AM EDT VYAIRE PFT ATE3070%PREZSCORE -2.25 025 8:31 AM EDT VYAIRE PFT YQI4840%PRE%PRED 41 % % 05/04/19 8:31 AM EDT V[facility]AIRE [facility]KQ3235%[facility] (2011) 05/03/2024 8:31 AM EDT VYAIRE PFT PEF PRE 4.76 L/s 05/03/2024 8:31 AM EDT VYAIRE PFT PEF PRED 6.14 05/03/2024 8:31 AM EDT VYAIRE PFT PEF LLN 4.58 05/03/2024 8:31 AM EDT VYAIRE PFT PEFPREZSCORE -1.46 05/03/2024 8:31 AM EDT VYAIRE PFT PEFPRE%PRED 78 % % 05/03/2024 8:31 AM EDT [facility] (1998[facility] 05/03/2024 8:31 AM EDT VYAIRE PFT IMYPQNNSEUCNEITJ8JZH 19.34 ml/(min* mmHg) 05/03/2024 8:31 AM EDT VYAIRE PFT DLCOSINGLEBREATH PRED 18.72 05/03/2024 8:31 AM EDT VYAIRE PFT DLCOSINGLEBREATH LLN 14.50 04/15 8:31 AM EDT VYAIRE PFT DLCOSINGLEBREATH Z-SCORE 0.22 05/03/2024 8:31 AM EDT VYAIRE PFT DLCOSINGLEBREATH % PRED 103.3 % 05/03/2024 8:31 AM EDT [facility] Stanmicheal TLCO GLI (2019) 05/03/2024 8:31 AM EDT VYAIRE PFT DLCOSINGLEBREATH Z-SCORE 0.22 05/03/2024 8:31 AM EDT VYAIRE PFT [id number] E 20.34 ml/(min* mmHg) 05/03/2024 8:31 AM EDT VYAIRE PFT DLCOCSINGLEBREATH PRED 18.72 05/03/2024 8:31 AM EDT VYAIRE PFT DLCOCSINGLEBREATH LLN 14.50 05/03/2024 8:31 AM EDT VYAIRE PFT DLCOCSINGLEBREATH Z-SCORE 0.56 05/03/2024 8:31 AM EDT VYAIRE PFT DLCOCSINGLEBREATH % PRED 108.7 % 05/03/2024 8:31 AM EDT VYAIRE PFT DLCOCSINGLEBREATH PREDAUTH Stanokavithavic TLCO GLI (2019) 05/03/2024 8:31 AM EDT VYAIRE PFT [id number] 4.32 ml/(min* mmHg*L) 05/03/2024 8:31 AM EDT VYAIRE PFT DLCOVAPRED 4.40 05/03/2024 8:31 AM EDT VYAIRE PFT DLCOVALLN 3.42 05/03/2024 8:31 AM EDT VYAIRE PFT DLCOVAZSCORE -0.13 05/03/2024 8:31 AM EDT VYAIRE PFT DLCOVA%PRED 98.2 % 05/03/2024 8:31 AM EDT VYAIRE PFT DLCOVAPREDAUTH Stanokavithavic TLCO GLI (2019) 05/03/2024 8:31 AM EDT VYAIRE PFT DLCOVAZSCORE -0.13 05/03/2024 8:31 AM EDT VYAIRE PFT [id number] 4.55 ml/(min* mmHg*L) 05/03/2024 8:31 AM EDT VYAIRE PFT DLCOC SB/VA PRED 4.40 05/04/19 8:31 AM EDT VYAIRE PFT DLCOC SB/VA LLN 3.42 8:31 AM EDT VYAIRE PFT DLCOC SB/VA Z-SCORE 0.23 05/03 8:31 AM EDT VYAIRE PFT DLCOC SB/VA % PRED 103.3 % 2024 8:31 AM EDT VYAIRE PFT DLCOC SB[facility] Elvis TLCO GLI (2019) 05/03/2024 8:31 AM EDT VYAIRE PFT DLCOC SB/VA Z-SCORE 0.23 05/03 8:31 AM EDT VYAIRE PFT [id number] 4.47 L 2024 8:31 AM EDT VYAIRE PFT VASINGLEBREATH PRED 4.29 05/03 8:31 AM EDT VYAIRE PFT VASINGLEBREATH LLN 3.49 2024 8:31 AM EDT VYAIRE PFT VASINGLEBREATH Z-SCORE 0.37 05/03/2024 8:31 AM EDT VYAIRE PFT VASINGLEBREATH % PRED 104.4 % 05/03/2024 8:31 AM EDT VYAIRE PFT [facility]BREATH [facility] Elvis TLCO GLI (2019) 05/03/2024 8:31 AM EDT VYAIRE PFT VASINGLEBREATH Z-SCORE 0.37 05/03/2024 8:31 AM EDT VYAIRE PFT [id number] 2.44 L 05/03 8:31 AM EDT VYAIRE PFT IVCSINGLEBREATH PRED 2.99 03/2 8:31 AM EDT VYAIRE PFT IVCSINGLEBREATH LLN 2.31 05/03 8:31 AM EDT VYAIRE PFT IVCSINGLEBREATH Z-SCORE -1.32 05/03/2024 8:31 AM EDT VYAIRE PFT IVCSINGLEBREATH % PRED 81.7 % 05/03/2024 8:31 AM EDT VYAIRE PFT IVCSINGLEBREATH [facility] _Martinr GLI (2011) 05/03/2024 8:31 AM EDT VYAIRE PFT HB PRE 11.90 g(Hb)/dL 05/03/2024 8:31 AM EDT VYAIRE PFT [id number] 4.18 L 05/03/2024 8:31 AM EDT VYAIRE PFT TLCPRED 4.65 05/03/2024 8:31 AM EDT VYAIRE PFT TLCLLN 3.78 05/03/2024 8:31 AM EDT VYAIRE PFT TLCULN 5.61 05/03/2024 8:31 AM EDT VYAIRE PFT TLCZSCORE -0.87 05/03/2024 8:31 AM EDT VYAIRE PFT TLC%PRED 90.0 % 05/03/2024 8:31 AM EDT [facility] (2019[facility]__ 05/03/2024 8:31 [...] % 05/03/2024 8:31 AM EDT VYAIRE PFT ICPREDAUTH [facility] Lung volumes GLI (2019)__ 05/03/2024 8:31 AM EDT VYAIRE PFT [id number] 2.31 L 05/03/2024 8:31 AM EDT VYAIRE PFT FRCPLETH PRED 2.37 05/03/2024 8:31 AM EDT VYAIRE PFT FRCPLETH LLN 1.68 05/03/2024 8:31 AM EDT VYAIRE PFT FRCPLETH ULN 3.24 05/03/2024 8:31 AM EDT VYAIRE PFT FRCPLETH Z-SCORE -0.13 05/04/19 8:31 AM EDT VYAIRE PFT FRCPLETH % PRED 97.5 % 8:31 AM EDT [facility]__ 05/03/2024 8:31 AM EDT VYAIRE PFT [id number] 0.42 L 05/03/2024 8:31 AM EDT VYAIRE PFT ERVPRED 0.82 05/03/2024 8:31 AM EDT VYAIRE PFT ERVLLN 0.31 05/03/2024 8:31 AM EDT VYAIRE PFT ERVULN 1.54 05/03/2024 8:31 AM EDT VYAIRE PFT ERV Z-SCORE -1.23 05/03/2024 8:31 AM EDT VYAIRE PFT ERV%PRED 51.3 % 05/03/2024 8:31 AM EDT [facility] Lung [facility]I (2019)__ 05/03/2024 8:31 [...] (2019)__ 05/03/2024 8:31 AM EDT VYAIRE PFT RV%QOS0GBE 45.22 % 05/03/2024 8:31 AM EDT VYAIRE PFT RV%TLCPRED 31 05/03/2024 8:31 AM EDT VYAIRE PFT RV%TLCLLN 20 05/03/2024 8:31 AM EDT VYAIRE PFT RV%TLCULN 42 05/03/2024 8:31 AM EDT VYAIRE PFT RV%TLCZSCORE 2.12 05/03/2024 8:31 AM EDT VYAIRE PFT RV%TLC%PRED 147.7 % 05/03/2024 8:31 AM EDT VYAIRE PFT RV%TLCPREDAUTH [facility] Lung volumes GLI (2019)__ 05/03/2024 8:31 AM EDT VYAIRE PFT [id number] 2.40 L 05/03/2024 8:31 AM EDT VYAIRE PFT Anatomical Region Laterality Modality PFT 05/03/2024 8:06 AM EDT Narrative 05/04/2024 4:54 PM EDT Pulmonary Function Testing Report Rere Hunter 53 y.o. underwent pulmonary function testing today at the [facility]. The patient underwent spirometry, lung volumes [...] no prior studies for comparison. Marylu Carvajal [employer]SEMBLER, DNP PFT ORDERABLES Namrata l Result * Anti Xa Level by Unfractionated Heparin - Heparin Drip Titration (05/03/2024 7:44 AM EDT) Anti Xa Level Unfractionated Heparin 0.30 <1.00 IU/mL LAB COAGULATION METHOD 05/03/2024 8:34 AM EDT [facility] Blood Venous blood specimen / Unknown Venipuncture / Unknown 05/03/2024 7:44 AM EDT 05/03/2024 7:51 AM EDT Narrative [facility] - 05/03/2024 8:34 AM EDT Therapeutic Range: UFH Full Dose and ACS/GA protocols*: 0.30 - 0.70 IU/mL UFH Low Dose protocol*: 0.25 - 0.50 IU/mL UFH prophylaxis: Not established Marylu Carvajal [employer]ER, DNP LAB BLOOD ORDERABLES Final Result [facility] [address] [place] [address] * (ABNORMAL) CBC W/O differential - Hit surveillance (05/03/2024 4:09 AM EDT) WBC Count 11.21(H) 3.70 - 10.30 10*3/uL LAB HEMATOLOGY METHOD 05/03/2024 4:47 AM EDT [facility] RBC Count 3.87(L) 3.90 - 5.20 10*6/uL LAB HEMATOLOGY METHOD 05/03/2024 4:47 AM EDT [facility] HGB 11.9 11.2 - 15.7 g/dL LAB HEMATOLOGY METHOD 05/03/2024 4:47 AM EDT [facility] HCT 34.0 34.0 - 45.0 % LAB HEMATOLOGY METHOD 05/03/2024 4:47 AM EDT [facility] Platelet Count 353 155 - 369 10*3/uL LAB HEMATOLOGY METHOD 05/03/2024 4:47 AM EDT [facility] MCV 88 79 - 98 fL LAB HEMATOLOGY METHOD 05/03/2024 4:47 AM EDT [facility] MCH 30.7 26.0 - 32.0 pg LAB HEMATOLOGY METHOD 05/03/2024 4:47 AM EDT [facility] MCHC 35.0 30.7 - 35.5 g/dL LAB HEMATOLOGY METHOD 05/03/2024 4:47 AM EDT [facility] RDW 13.4 11.5 - 14.5 % LAB HEMATOLOGY METHOD 05/03/2024 4:47 AM EDT [facility] MPV 10.0 8.8 - 12.5 fL LAB HEMATOLOGY METHOD 05/03/2024 4:47 AM EDT [facility] nRBC 0.0 <=0.0 per 100 WBCs LAB HEMATOLOGY METHOD 05/03/2024 4:47 AM EDT [facility] Blood Venous blood specimen / Unknown Venipuncture / Unknown 05/03/2024 4:09 AM EDT 05/03/2024 4:28 AM EDT Marylu Carvajal [employer], DNP LAB BLOOD ORDERABLES Final Result [facility] [address] [place] [address] * (ABNORMAL) P2Y12 Platelet Receptor Blockade, Verify Now PRU (05/03/2024 4:09 AM EDT) P2Y12 PRU 137(L) 194 - 418 PRU 05/03/2024 5:26 AM EDT [facility] Blood Venous blood specimen / Unknown Venipuncture / Unknown 05/03/2024 4:09 AM EDT 05/03/2024 4:20 AM EDT Narrative [facility] - 05/03/2024 5:26 AM EDT P2Y12 [...] to the clinician. Testing performed in the [facility]. us Anne Marie PHILLIP LAB BLOOD ORDERABLES Final Result Performing Organization Address City/[facility]/ZIP Co de Phone Number [facility] [address] [place] [address] * Magnesium, Plasma (05/03/2024 4:09 AM EDT) Pathologist [facility] Magnesium, Plasma 2.1 1.9 - 2.4 mg/dL 05/03/2024 4:54 AM EDT [facility] Blood Venous blood specimen / Unknown Venipuncture / Unknown 05/03/2024 4:09 AM EDT 05/03/2024 4:21 AM EDT Marylu Carvajal APRN, DNP LAB BLOOD ORDERABLES Final Result Performing Organization Address [facility]/ZIP Co de Phone Number [facility] [address] [place] [address] * (ABNORMAL) Basic metabolic panel (05/03/2024 4:09 AM EDT) Glucose, Plasma 106(H) 74 - 99 mg/dL 05/03/2024 4:54 AM EDT [facility] BUN, Plasma 11 7 - 21 mg/dL 05/03/2024 4:54 AM EDT [facility] Creatinine, Plasma 0.94 0.60 - 1.10 mg/dL 05/03/2024 4:54 AM EDT [facility] BUN/Creatinine Ratio 12 05/03/2024 4:54 AM EDT [facility] Sodium, Plasma 137 136 - 145 mmol/L 05/03/2024 4:54 AM EDT [facility] Potassium, Plasma 3.7 3.6 - 4.9 mmol/L 05/03/2024 4:54 AM EDT [facility] Chloride, Plasma 103 97 - 107 mmol/L 05/03/2024 4:54 AM EDT [facility] CO2, Plasma 25 22 - 29 mmol/L 05/03/2024 4:54 AM EDT [facility] Anion Gap 9 6 - 16 mmol/L 05/03/2024 4:54 AM EDT [facility] Total Calcium, Plasma 8.6(L) 8.9 - 10.2 mg/dL 05/03/2024 4:54 AM EDT [facility] eGFRcr 72.3 mL/min/1.7 3m*2 05/03/2024 4:54 AM EDT [facility] Comment:Reported eGFRcr in m L/min/1.73m2 is based the CKD-EPI 2020 equation that does not use a race coefficient. Blood Venous blood specimen / Unknown Venipuncture / Unknown 05/03/2024 4:09 AM EDT 05/03/2024 4:21 AM EDT Marylu Carvajal APRN, DNP LAB BLOOD ORDERABLES Final Result Performing Organization Address City/[facility] Co de Phone Number [facility] [address] [place] [address] * Anti Xa Level by Unfractionated Heparin - Heparin Drip Titration (05/02/2024 11:36 PM EDT) Anti Xa Level Unfractionated Heparin 0.35 <1.00 IU/mL LAB COAGULATION METHOD 05/03/2024 12:04 AM EDT [facility] Blood Venous blood specimen / Unknown Venipuncture / Unknown 05/02/2024 11:36 PM EDT 05/02/2024 11:41 PM EDT Narrative [facility] - 05/03/2024 12:04 AM EDT Therapeutic Range: UFH Full Dose and ACS/GA protocols*: 0.30 - 0.70 IU/mL UFH Low Dose protocol*: 0.25 - 0.50 IU/mL UFH prophylaxis: Not established Marylu Carvajal APRN, JORGE LAB BLOOD ORDERABLES Final Result Performing Organization Address City/[facility]/ZIP Co de Phone Number [facility] [address] [place] [address] * Anti Xa Level by Unfractionated Heparin - Heparin Drip Titration (05/02/2024 6:45 PM EDT) Anti Xa Level Unfractionated Heparin 0.30 <1.00 IU/mL LAB COAGULATION METHOD 05/02/2024 8:02 PM EDT [facility] Blood Venous blood specimen / Unknown Venipuncture / Unknown 05/02/2024 6:45 PM EDT 05/02/2024 6:59 PM EDT Narrative [facility] - 05/02/2024 8:02 PM EDT Therapeutic Range: UFH Full Dose and ACS/GA protocols*: 0.30 - 0.70 IU/mL UFH Low Dose protocol*: 0.25 - 0.50 IU/mL UFH prophylaxis: Not established Marylu Carvajal APRN, DNP LAB BLOOD ORDERABLES Final Result [facility] [address] [place] [address] * VAS US Carotid Duplex Bilateral (05/02/2024 [...] by Giovanni Rashid MD, HAI, GILLIAN, CRUZITO on 05/03/2024 10:23 AM Narrative 05/03/2024 [...] LAB COAGULATION METHOD 05/02/2024 2:05 PM EDT [facility] Blood Venous blood specimen / Unknown Venipuncture / Unknown 05/02/2024 1:05 PM EDT 05/02/2024 1:29 PM EDT Narrative [facility] - 05/02/2024 2:05 PM EDT Therapeutic Range: UFH Full Dose and ACS/GA protocols*: 0.30 - 0.70 IU/mL UFH Low Dose protocol*: 0.25 - 0.50 IU/mL UFH prophylaxis: Not established Marylu Carvajal APRN, DNP LAB BLOOD ORDERABLES Final Result [facility] [address] [place] [address] * ECHO, ADULT TRANSTHORACIC COMPLETE W/ 3D [...] 28 mL ALEXIA ISCV TAPSE 22 mm ALEXAI ISCV RV s' Bravo 10.8 cm/s ALEXIA ISCV PA acc time 150 msec ALEXIA ISCV mean PAP 12 mmHg ALEXIA ISCV PA TN(ACCEL) 13.6 mmHg ALEXIA ISCV PA acc slope [...] is no recent study available for direct [id number] comparison. Left Ventricle Based on the linear [...] is no recent study available for direct xjtt-du-[id number] comparison. Marylu Carvajal APRN, DNP CV ECHO PROCEDURES F inal Result * Anti Xa Level by Unfractionated Heparin - Heparin Drip Titration (05/02/2024 6:28 AM EDT) Anti Xa Level Unfractionated Heparin 0.28 <1.00 IU/mL LAB COAGULATION METHOD 05/02/2024 7:03 AM EDT [facility] Blood Venous blood specimen / Unknown Venipuncture / Unknown 05/02/2024 6:28 AM EDT 05/02/2024 6:34 AM EDT Narrative [facility] - 05/02/2024 7:03 AM EDT Therapeutic Range: UFH Full Dose and ACS/GA protocols*: 0.30 - 0.70 IU/mL UFH Low Dose protocol*: 0.25 - 0.50 IU/mL UFH prophylaxis: Not established Marylu Carvajal APRN, DNP LAB BLOOD ORDERABLES Final Result [facility] [address] [place] [address] * (ABNORMAL) Troponin T, High Sensitivity, 2 Hour, Plasma (05/02/2024 2:23 AM EDT) Troponin T, High Sensitivity, 2 Hour 31(H) <14 ng/L 05/02/2024 2:53 AM EDT [facility] Troponin Delta 3 <10 ng/L 05/02/2024 2:53 AM EDT [facility] Troponin Delta Interpretation Not Significant 05/02/2024 2:53 AM EDT [facility] Comment:Not Significant. No acute change in troponin observed between the baseline and 2 hour samples. Blood Venous blood specimen / Unknown Venipuncture / Unknown 05/02/2024 2:23 AM EDT 05/02/2024 2:26 AM EDT Marylu Carvajal [employer]SEMBLER, DNP LAB BLOOD ORDERABLES Final Result [facility] [address] [place] [address] * CT Chest wo IV Contrast (05/02/2024 [...] 5.3 <5.7 % 05/02/2024 6:29 AM EDT [facility] Blood Venous blood specimen / Unknown 05/01/2024 11:58 PM EDT 05/02/2024 12:08 AM EDT Narrative [facility] - 05/02/2024 6:29 AM EDT HA1C Interpretive Data: Diagnosis of Diabetes: Diabetic > or = 6.5% Pre-diabetic 5.7 to 6.4% Non-diabetic < or = 5.6% Glycemic Targets for Type I and Type II Diabetics: Non- Adults <7.0% Adults <6.0% Children and Adolescents <7.5% Source: [place] [employer]. Standards of medical care in diabetes,2017. Diabetes Care.2017:40 (suppl 1):S1-S135. HbA1c assay performed by an ion-exchange chromatography method that is certified traceable to the DCCT. us Anne Marie PHILLIP LAB BLOOD ORDERABLES Final Result [facility] [address] [place] [address] * (ABNORMAL) Lipid panel (05/01/2024 11:58 PM EDT) Cholesterol, Plasma 247(H) <200 mg/dL 05/02/2024 6:36 AM EDT [facility] Comment: Cholesterol Reference Range (age >17 years): Desirable <200 mg/dL Borderline 200 to 239 mg/dL Undesirable >239 mg/dL HDL 36(L) >=50 mg/dL 05/02/2024 6:36 AM EDT [facility] Comment: HDL Cholesterol Reference Ranges (age >17 years): Female, acceptable > or = 50 mg/dL Male, acceptable > or = 40 mg/dL Triglycerides, Plasma 271(H) <150 mg/dL 05/02/2024 6:36 AM EDT [facility] Comment: Triglyceride Reference Range (age >17 years): Desirable: <150 mg/dL Borderline high: 150 to 199 mg/dL High: 200 to 499 mg/dL Very high: >499 mg/dL Increased risk of pancreatitis: >1000 mg/dL Cholesterol/HDL Ratio 7 05/02/2024 6:36 AM EDT [facility] LDL, Calculated 160(H) <100 mg/dL 6:36 AM EDT [facility] Comment: LDL Cholesterol Reference Range (age [...] 12 hours? Unknown 05/02/2024 6:36 AM EDT [facility] Blood Venous blood specimen / Unknown 05/01/2024 11:58 PM EDT 05/02/2024 12:08 AM EDT us Anne Marie Johnson PA LAB BLOOD ORDERABLES Final Result Performing Organization Address City/[facility]/ZIP Co de Phone Number [facility] [address] [place] [address] * Morphology (05/01/2024 11:58 PM EDT) RBC Morphology RBC Morphology Consistent with Indices and RDW LAB HEMATOLOGY METHOD 05/02/2024 2:05 AM EDT [facility] Platelet Estimate Platelet smear estimate consistent with automated count LAB HEMATOLOGY METHOD 05/02/2024 2:05 AM EDT [facility] Blood Venous blood specimen / Unknown Venipuncture / Unknown 05/01/2024 11:58 PM EDT 05/02/2024 12:05 AM EDT us Marylu Carvajal [employer], DNP LAB BLOOD ORDERABLES Final Result Performing Organization Address City/[facility]/ZIP Co de Phone Number [facility] [address] [place] [address] * (ABNORMAL) Manual Differential (05/01/2024 11:58 PM EDT) Blasts % 0 % LAB HEMATOLOGY METHOD 05/02/2024 2:05 AM EDT [facility] Promyelocytes % 0 % LAB HEMATOLOGY METHOD 05/02/2024 2:05 AM EDT [facility] Myelocytes % 0 % LAB HEMATOLOGY METHOD 05/02/2024 2:05 AM EDT [facility] Metamyelocytes % 0 % LAB HEMATOLOGY METHOD 05/02/2024 2:05 AM EDT [facility] Neutrophils % 52 % LAB HEMATOLOGY METHOD 05/02/2024 2:05 AM EDT [facility] Lymphocytes % 33 % LAB HEMATOLOGY METHOD 05/02/2024 2:05 AM EDT [facility] Reactive Lymphocytes % 0 % LAB HEMATOLOGY METHOD 05/02/2024 2:05 AM EDT [facility] Monocytes % 7 % LAB HEMATOLOGY METHOD 05/02/2024 2:05 AM EDT [facility] Eosinophils % 4 % LAB HEMATOLOGY METHOD 05/02/2024 2:05 AM EDT [facility] Basophils % 4 % LAB HEMATOLOGY METHOD 05/02/2024 2:05 AM EDT [facility] Blasts Absolute 0.00 10*3/UL LAB HEMATOLOGY METHOD 05/02/2024 2:05 AM EDT [facility] Promyelocytes Absolute 0.00 10*3/uL LAB HEMATOLOGY METHOD 05/02/2024 2:05 AM EDT [facility] Myelocytes Absolute 0.00 10*3/uL LAB HEMATOLOGY METHOD 05/02/2024 2:05 AM EDT [facility] Metamyelocytes Absolute 0.00 10*3/uL LAB HEMATOLOGY METHOD 05/02/2024 2:05 AM EDT [facility] Neutrophils Absolute 6.81(H) 1.60 - 6.10 10*3/uL LAB HEMATOLOGY METHOD 05/02/2024 2:05 AM EDT [facility] Lymphocytes Absolute 4.32(H) 1.20 - 3.90 10*3/uL LAB HEMATOLOGY METHOD 05/02/2024 2:05 AM EDT [facility] Reactive Lymphocytes Absolute 0.00 10*3/uL LAB HEMATOLOGY METHOD 05/02/2024 2:05 AM EDT [facility] Monocytes Absolute 0.92(H) 0.30 - 0.90 10*3/uL LAB HEMATOLOGY METHOD 05/02/2024 2:05 AM EDT [facility] Eosinophils Absolute 0.52(H) 0.00 - 0.50 10*3/uL LAB HEMATOLOGY METHOD 05/02/2024 2:05 AM EDT [facility] Basophils Absolute 0.52(H) 0.00 - 0.10 10*3/uL LAB HEMATOLOGY METHOD 05/02/2024 2:05 AM EDT [facility] Blood Venous blood specimen / Unknown Venipuncture / Unknown 05/01/2024 11:58 PM EDT 05/02/2024 12:05 AM EDT Marylu Carvajal [employer], DNP LAB BLOOD ORDERABLES Final Result [facility] [address] [place] [address] * Gold Top (05/01/2024 11:58 PM EDT) Extra Hold for add-ons 05/02/2024 3:02 AM EDT [facility] Comment:Auto resulted. Blood Venous blood specimen / Unknown 05/01/2024 11:58 PM EDT 05/02/2024 12:08 AM EDT us Edson Mcclure DO LAB BLOOD ORDERABLES Final R esult Performing Organization Address [facility]/ZIP Co de Phone Number [facility] [address] [place] [address] * Lavender Top (05/01/2024 11:58 PM EDT) Extra Hold for add-ons 05/02/2024 3:02 AM EDT [facility] Comment:Auto resulted. Blood Venous blood specimen / Unknown 05/01/2024 11:58 PM EDT 05/02/2024 12:08 AM EDT us Edson Mcclure DO LAB BLOOD ORDERABLES Final R esult Performing Organization Address City/[facility]/ZIP Co de Phone Number [facility] [address] [place] [address] * Light Green Top (05/01/2024 11:58 PM EDT) Extra Hold for add-ons 05/02/2024 3:02 AM EDT [facility] Comment:Auto resulted. Blood Venous blood specimen / Unknown 05/01/2024 11:58 PM EDT 05/02/2024 12:08 AM EDT Edson Mcclure DO LAB BLOOD ORDERABLES Final R esult Performing Organization Address City/[facility]/ZIP Co de Phone Number [facility] [address] [place] [address] * (ABNORMAL) Troponin T, High Sensitivity, 0 Hour Plasma, Reflex to 2 Hour (05/01/2024 11:58 PM EDT) Troponin T, High Sensitivity, 0 Hour 34(H) <14 ng/L 05/02/2024 12:40 AM EDT [facility] Blood Venous blood specimen / Unknown Venipuncture / Unknown 05/01/2024 11:58 PM EDT 05/02/2024 12:05 AM EDT Marylu Carvajal APRN, JORGE LAB BLOOD ORDERABLES Final Result Performing Organization Address City/[facility]/ZIP Co de Phone Number [facility] [address] [place] [address] * Anti Xa Level by Unfractionated Heparin - Baseline (05/01/2024 11:58 PM EDT) Anti Xa Level Unfractionated Heparin 0.68 <1.00 IU/mL LAB COAGULATION METHOD 05/02/2024 1:05 AM EDT [facility] Blood Venous blood specimen / Unknown Venipuncture / Unknown 05/01/2024 11:58 PM EDT 05/02/2024 12:05 AM EDT Narrative [facility] - 05/02/2024 1:05 AM EDT Therapeutic Range: UFH Full Dose and ACS/GA protocols*: 0.30 - 0.70 IU/mL UFH Low Dose protocol*: 0.25 - 0.50 IU/mL UFH prophylaxis: Not established Marylu Carvajal APRN, JORGE LAB BLOOD ORDERABLES Final Result Performing Organization Address City/[facility]/ZIP Co de Phone Number [facility] [address] [place] [address] * N-Terminal Probnp, Plasma (05/01/2024 11:58 PM EDT) N-Terminal, PROBNP, Plasma 339 0 - 899 pg/mL 05/02/2024 12:40 AM EDT [facility] Blood Venous blood specimen / Unknown Venipuncture / Unknown 05/01/2024 11:58 PM EDT 05/02/2024 12:05 AM EDT Marylu Carvajal APRN, DNP LAB BLOOD ORDERABLES Final Result [facility] [address] [place] [address] * (ABNORMAL) APTT (05/01/2024 11:58 PM EDT) aPTT 79(H) 25 - 35 sec LAB COAGULATION METHOD 05/02/2024 1:05 AM EDT [facility] Blood Venous blood specimen / Unknown Venipuncture / Unknown 05/01/2024 11:58 PM EDT 05/02/2024 12:05 AM EDT Narrative [facility] - 05/02/2024 1:05 AM EDT [facility] Marylu Carvajal APRN, DNP LAB BLOOD ORDERABLES Final Result Performing Organization Address City/[facility]/ZIP Co de Phone Number [facility] [address] [place] [address] * Type and Screen (05/01/2024 11:58 PM [...] TEST ORDERABLES Final Result Performing Organization Address City/[facility]/ZIP Co de Phone Number BLOOD BANK [address] [place] [address], [place] * Ionized calcium, serum (05/01/2024 11:58 PM EDT) Ionized Calcium, Serum 4.6 4.6 - 5.3 mg/dL LAB HEMATOLOGY METHOD 05/02/2024 1:03 AM EDT [facility] Blood Venous blood specimen / Unknown Venipuncture / Unknown 05/01/2024 11:58 PM EDT 05/02/2024 12:07 AM EDT Marylu Carvajal APRN, JORGE LAB BLOOD ORDERABLES Final Result [facility] [address] [place] [address] * Phosphorus, Plasma (05/01/2024 11:58 PM EDT) Phosphorus, Plasma 3.6 2.5 - 4.5 mg/dL 05/02/2024 12:40 AM EDT [facility] Blood Venous blood specimen / Unknown Venipuncture / Unknown 05/01/2024 11:58 PM EDT 05/02/2024 12:05 AM EDT Marylu Carvajal APRN, DNP LAB BLOOD ORDERABLES Final Result Performing Organization Address City/[facility]/[place] [address] * Magnesium, Plasma (05/01/2024 11:58 PM EDT) Magnesium, Plasma 2.3 1.9 - 2.4 mg/dL 05/02/2024 12:40 AM EDT [facility] Blood Venous blood specimen / Unknown Venipuncture / Unknown 05/01/2024 11:58 PM EDT 05/02/2024 12:05 AM EDT Marylu Carvajal APRN, DNP LAB BLOOD ORDERABLES Final Result Performing Organization Address City/[facility]/ZIP Co de Phone Number [facility] [address] [place] [address] * Prothrombin Time/INR (05/01/2024 11:58 PM EDT) Prothrombin Time 13.4 12.0 - 14.3 sec LAB COAGULATION METHOD 05/02/2024 12:36 AM EDT [facility] INR 1.0 0.9 - 1.1 LAB COAGULATION METHOD 05/02/2024 12:36 AM EDT [facility] Blood Venous blood specimen / Unknown Venipuncture / Unknown 05/01/2024 11:58 PM EDT 05/02/2024 12:05 AM EDT Narrative [facility] - 05/02/2024 12:36 AM EDT OPTIMAL INR RANGES FOR PATIENT ON ORAL ANTICOAGULANT THERAPY Prevention of venous thromboembolism INR 2.0 to 3.0 In patients with heart disease: Atrial fibrillation INR 2.0 to 3.0 Valvular heart disease INR 2.0 to 3.0 Tissue heart valves INR 2.0 to 3.0 Mechanical prosthetic valves INR 2.5 to 3.5 Prevention of recurrent GA INR 2.5 to 3.5 Marylu Carvajal [employer]SEMBLER, DNP LAB BLOOD ORDERABLES Final Result [facility] [address] [place] [address] * (ABNORMAL) Comprehensive metabolic panel (05/01/2024 11:58 PM EDT) Glucose, Plasma 97 74 - 99 mg/dL 05/02/2024 12:40 AM EDT [facility] BUN, Plasma 9 7 - 21 mg/dL 05/02/2024 12:40 AM EDT [facility] Creatinine, Plasma 0.85 0.60 - 1.10 mg/dL 05/02/2024 12:40 AM EDT [facility] BUN/Creatinine Ratio 11 05/02/2024 12:40 AM EDT [facility] Sodium, Plasma 137 136 - 145 mmol/L 05/02/2024 12:40 AM EDT [facility] Potassium, Plasma 3.6 3.6 - 4.9 mmol/L 05/02/2024 12:40 AM EDT [facility] Chloride, Plasma 104 97 - 107 mmol/L 05/02/2024 12:40 AM EDT [facility] CO2, Plasma 22 22 - 29 mmol/L 05/02/2024 12:40 AM EDT [facility] Anion Gap 11 6 - 16 mmol/L 05/02/2024 12:40 AM EDT [facility] Total Calcium, Plasma 8.5(L) 8.9 - 10.2 mg/dL 05/02/2024 12:40 AM EDT [facility] Total Protein 6.3 6.3 - 7.9 g/dL 05/02/2024 12:40 AM EDT [facility] Albumin, Plasma 3.8 3.5 - 5.2 g/dL 05/02/2024 12:40 AM EDT [facility] AST, Plasma 21 10 - 35 U/L 05/02/2024 12:40 AM EDT [facility] ALT, Plasma 17 10 - 35 U/L 05/02/2024 12:40 AM EDT [facility] Alkaline Phosphatase, Plasma 124(H) 35 - 104 U/L 05/02/2024 12:40 AM EDT [facility] Total Bilirubin, Plasma 0.4 0.2 - 1.1 mg/dL 05/02/2024 12:40 AM EDT [facility] eGFRcr 81.5 mL/min/1.7 3m*2 05/02/2024 12:40 AM EDT [facility] Comment:Reported eGFRcr in m L/min/1.73m2 is based the CKD-EPI 2020 equation that does not use a race coefficient. Blood Venous blood specimen / Unknown Venipuncture / Unknown 05/01/2024 11:58 PM EDT 05/02/2024 12:05 AM EDT Marylu Carvajal [employer]ER, DNP LAB BLOOD ORDERABLES Final Result [facility] [address] [place] [address] * (ABNORMAL) CBC and Differential (05/01/2024 11:58 PM EDT) WBC Count 13.10(H) 3.70 - 10.30 10*3/uL LAB HEMATOLOGY METHOD 05/02/2024 2:05 AM EDT [facility] RBC Count 4.15 3.90 - 5.20 10*6/uL LAB HEMATOLOGY METHOD 05/02/2024 2:05 AM EDT [facility] HGB 12.8 11.2 - 15.7 g/dL LAB HEMATOLOGY METHOD 05/02/2024 2:05 AM EDT [facility] HCT 35.9 34.0 - 45.0 % LAB HEMATOLOGY METHOD 05/02/2024 2:05 AM EDT [facility] Platelet Count 374(H) 155 - 369 10*3/uL LAB HEMATOLOGY METHOD 05/02/2024 2:05 AM EDT [facility] MCV 87 79 - 98 fL LAB HEMATOLOGY METHOD 05/02/2024 2:05 AM EDT [facility] MCH 30.8 26.0 - 32.0 pg LAB HEMATOLOGY METHOD 05/02/2024 2:05 AM EDT [facility] MCHC 35.7(H) 30.7 - 35.5 g/dL LAB HEMATOLOGY METHOD 05/02/2024 2:05 AM EDT [facility] RDW 13.4 11.5 - 14.5 % LAB HEMATOLOGY METHOD 05/02/2024 2:05 AM EDT [facility] MPV 9.9 8.8 - 12.5 fL LAB HEMATOLOGY METHOD 05/02/2024 2:05 AM EDT [facility] nRBC 0.0 <=0.0 per 100 WBCs LAB HEMATOLOGY METHOD 05/02/2024 2:05 AM EDT [facility] Differential Type Manual LAB HEMATOLOGY METHOD 05/02/2024 2:05 AM EDT [facility] Blood Venous blood specimen / Unknown Venipuncture / Unknown 05/01/2024 11:58 PM EDT 05/02/2024 12:05 AM EDT Narrative [facility] - 05/02/2024 2:05 AM EDT Therapeutic [...] APRN, JORGE LAB BLOOD ORDERABLES Final Result [facility] [address] [place] [address] * (ABNORMAL) Platelet P2Y12 Receptor Blockade, Verify Now PRU (05/01/2024 11:58 PM EDT) P2Y12 PRU 56(L) 194 - 418 PRU 05/02/2024 12:24 AM EDT [facility] Blood Venous blood specimen / Unknown Venipuncture / Unknown 05/01/2024 11:58 PM EDT 05/02/2024 12:11 AM EDT Narrative [facility] - 05/02/2024 12:24 AM EDT P2Y12 [...] to the clinician. Testing performed in the [facility]. Marylu Kelway Carvajalcaden ANTOINE DNP LAB BLOOD ORDERABLES Final Result Performing Organization Address [facility] Co de Phone Number [facility] [address] [place] [address] * Fibrinogen, Quantitative (Clottable) (05/01/2024 11:58 PM EDT) Fibrinogen, Quantitative (Clottable) 291 208 - 459 mg/dL LAB COAGULATION METHOD 05/02/2024 1:05 AM EDT [facility] Blood Venous blood specimen / Unknown Venipuncture / Unknown 05/01/2024 11:58 PM EDT 05/02/2024 12:05 AM EDT Marylu Carvajal APRN, DNP LAB BLOOD ORDERABLES Final Result Performing Organization Address [facility] Co de Phone Number [facility] [address] [place] [address] * ECG Adult (05/01/2024 11:25 PM EDT) EKG DIAGNOSIS CLASS Abnormal MUSE ECG Ventricular Rate 71 BPM MUSE ECG Atrial Rate 71 BPM MUSE ECG TN Interval 156 ms MUSE ECG QRSD Interval 70 ms MUSE ECG QT Interval 478 ms MUSE ECG QTC Interval 519 ms MUSE ECG P [place] 78 degrees MUSE ECG R [place] 45 degrees MUSE ECG T Wave [place] 43 degrees MUSE ECG Diagnosis Normal sinus rhythm MUSE ECG Diagnosis Nonspecific ST and T wave abnormality MUSE ECG Diagnosis Prolonged QT MUSE ECG Diagnosis Abnormal ECG MUSE ECG Diagnosis MUSE ECG Diagnosis Confirmed by Graham Singleton ([id number]) on 05/02/2024 5:27:14 AM MUSE ECG 05/01/2024 11:2 5 PM EDT 05/02/2024 5:27 AM EDT Marylu Carvajal APRN, DNP ECG ORDERABLES Namrata l Result Performing Organization Address [facility] Co de Phone Number MUSE [...] MD on 05/01/2024 11:31 PM Marylu Carvajal [employer]SEMBLER, JORGE IMG XR PROCEDURES Fi nal Result documented [...] (ECG) (EKG) Hyperlipidemia Other and unspecified hyperlipidemia Hypercholesteremia Pure hypercholesterolemia Hypertriglyceridemia Pure hyperglyceridemia Hypoalphalipoproteinemia Lipoprotein deficiencies THOM (obstructive sleep apnea) Obstructive sleep apnea (adult) (pediatric) S/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 On mechanically assisted ventilation (CMS/HCC) Low cardiac output syndrome (CMS/HCC) Unspecified heart failure Hypertension Unspecified essential hypertension Hyperkalemia Hyperpotassemia Cardiac volume overload Hypoglycemia Hypoglycemia, unspecified Nausea with vomiting Acute blood loss anemia (ABLA) Gastric perforation (CMS/HCC) Chronic or unspecified gastric ulcer with perforation, without mention of obstruction On total parenteral nutrition (TPN) Ileus (CMS/HCC) Paralytic ileus Electrolyte abnormality Electrolyte and fluid disorders not elsewhere classified Colon perforation (CMS/HCC) Perforation of intestine Essential tremor Colon perforation (CMS/HCC) Perforation of intestine documented in this encounter Admitting Diagnoses Diagnosis CAD, multiple vessel Colon perforation (CMS/HCC) Perforation of intestine documented in this encounter Administered Medications Inactive Administered Medications - up to 3 most recent administrations Medication Order MAR Action Action Date Dose Rate Site acetaminophen (Tylenol) tablet 1,000 mg 1,000 mg, Oral, Every 6 hours scheduled, First dose (after last modification) on 06/17/24 at 0745, Until Discontinued, Routine Given 06/21/2024 1:02 PM EDT 1,000 mg Given 06/21/2024 1:02 AM EDT 1,000 mg Given 06/20/2024 5:58 PM EDT 1,000 mg aspirin chewable tablet 81 mg 81 mg, Oral, Daily, First dose on 05/26/24 at 1630, Until Discontinued, Routine Given 06/21/2024 10:22 AM EDT 81 mg Given 06/20/2024 8:20 AM EDT 81 mg Given 06/19/2024 9:06 AM EDT 81 mg benzocaine-menthol (Chloraseptic) 6-10 MG lozenge 1 lozenge 1 lozenge, Mouth/Throat, Every 4 hours PRN, Starting on 05/14/24 at 2012, Until [facility] 06/21/24 at 1741, Routine, sore throat Given 05/17/2024 4:24 PM EDT 1 lozenge Given 05/17/2024 10:31 AM EDT 1 lozenge Given 05/16/2024 6:05 PM EDT 1 lozenge bisacodyl (Dulcolax) EC tablet 10 mg 10 mg, Oral, Daily PRN, Starting on Tue06/14/24 at 0729, Until [facility] 06/21/24 at 1741, Routine, constipation Given 06/14/2024 7:59 AM EDT 10 mg buPROPion XL (Wellbutrin XL) 24 hr tablet 300 mg 300 mg, Oral, Daily, First dose on [facility] 05/31/24 at 0900, Until Discontinued, Routine Given 06/21/2024 10:2 2 AM EDT 300 mg Given 06/20/2024 8:20 AM EDT 300 mg Given 06/19/2024 9:06 AM EDT 300 mg calcium carbonate (Tums) chewable tablet 500 mg 500 mg, Oral, 4 times daily PRN, Starting on [facility] 05/31/24 at 1019, Until [facility] 06/21/24 at 1741, Routine, indigestion, heartburn Given 06/10/2024 1:55 PM EDT 500 mg Given 06/08/2024 8:32 PM EDT 500 mg Given 06/07/2024 8:53 PM EDT 500 mg citalopram (CeleXA) tablet 40 mg 40 mg, Oral, Daily, First dose on [facility] 05/27/24 at 1245, Until Discontinued, Routine Given 06/21/2024 10:23 AM EDT 40 mg Given 06/20/2024 8:20 AM EDT 40 mg Given 06/19/2024 9:06 AM EDT 40 mg dronabinol (Marinol) capsule 2.5 mg 2.5 mg, Oral, 2 times daily before meals, First dose on [facility] 06/09/24 at 1700, Until Discontinued, Routine Given 06/21/2024 10:22 AM EDT 2.5 mg Given 06/20/2024 5:58 PM EDT 2.5 mg Given 06/20/2024 8:45 AM EDT 2.5 mg enoxaparin (Lovenox) syringe 40 mg 40 mg, Subcutaneous, Daily, First dose on [facility] 06/10/24 at 2100, Until Discontinued, Routine Given 06/21/2024 10:23 AM EDT 40 mg Left Lower Abdomen Given 06/20/2024 8:20 AM EDT 40 mg Ri ght Lower Abdomen Given 06/19/2024 9:05 AM EDT 40 mg Le ft Lower Abdomen hydrOXYzine pamoate (Vistaril) capsule 25 mg 25 mg, Oral, Every 6 hours PRN, Starting on Tue06/03/24 at 1021, Until [facility] 06/21/24 at 1741, Routine, anxiety Given 06/21/2024 1:33 PM EDT 25 mg Given 06/19/2024 7:58 PM EDT 25 mg Given 06/19/2024 11:37 AM EDT 25 mg ipratropium-albuterol (Duo-Neb) 0.5-2.5 mg/3 mL nebulizer solution 3 mL 3 mL, Nebulization, Every 6 hours PRN, Starting on Tue05/15/24 at 0900, Until [facility] 06/21/24 at 1741, Routine, wheezing, shortness of breath Given 05/17/2024 3:51 PM EDT 3 mL lactulose (Chronulac) 10 GM/15ML solution 20 g 20 g, Oral, 2 times daily, First dose on Tue06/14/24 at 0900, Until Discontinued, Routine Given 06/21/2024 10:24 AM EDT 20 g Given 06/20/2024 8:41 PM EDT 20 g Given 06/20/2024 8:20 AM EDT 20 g lidocaine (Lidoderm) 5 % patch 2 patch 2 patch, Apply externally, Every 24 hours, First dose on [facility] 05/26/24 at 1515, Until Discontinued, Administer over 12 Hours, Routine Medication Applied 06/20/2024 5:59 PM EDT 2 patches Back Medication Applied 06/19/2024 2:34 PM EDT 2 patches Back Medication Applied 06/18/2024 2:22 PM EDT 2 patches Other melatonin tablet 6 mg 6 mg, Oral, Nightly, First dose on Tue05/29/24 at 2100, Until Discontinued, Routine Given 06/20/2024 8:42 PM EDT 6 mg Given 06/19/2024 8:02 PM EDT 6 mg Given 06/18/2024 9:14 PM EDT 6 mg methocarbamol (Robaxin) tablet 1,000 mg 1,000 mg, Oral, 4 times daily, First dose (after last modification) on [facility] 06/16/24 at 2200, Until Discontinued, Routine Given 06/21/2024 1:02 PM EDT 1,000 mg Given 06/21/2024 10:22 AM EDT 1,000 mg Given 06/20/2024 9:57 PM EDT 1,000 mg metoprolol tartrate (Lopressor) tablet 25 mg 25 mg, Oral, 2 times daily, First dose on Tue05/27/24 at 2100, Until Discontinued, Routine Given 06/21/2024 10:2 2 AM EDT 25 mg Given 06/20/2024 8:42 PM EDT 25 mg Given 06/20/2024 8:20 AM EDT 25 mg moisturizing mouth (Biotene Dry Mouth) solution 15 mL 15 mL, Swish & Spit, As needed, Starting on Tue06/07/24 at 1645, Until Tue06/21/24 at 1741, Routine, dry mouth Given 06/07/2024 5:59 PM EDT 15 mL ondansetron (Zofran) injection 4 mg 4 mg, Intravenous, Every 6 hours PRN, Starting on Tue05/19/24 at 1257, Until Tue06/21/24 at 1741, Routine, vomiting, nausea Given 06/21/2024 1:02 PM EDT 4 mg Given 06/20/2024 8:41 PM EDT 4 mg Given 06/20/2024 8:19 AM EDT 4 mg oxyCODONE (Roxicodone) immediate release tablet 5 [...] Given 06/19/2024 9:06 AM EDT 40 mg polyethylene glycol (Miralax) packet 17 g 17 g, Oral, Daily, First dose on Tue06/14/24 at 1100, Until Discontinued, Routine Given 06/21/2024 10:23 AM EDT 17 g Given 06/19/2024 9:05 AM EDT 17 g Given 06/18/2024 9:13 AM EDT 17 g primidone (Mysoline) tablet 50 mg 50 mg, Oral, 2 times daily, First dose on Tue05/27/24 at 1245, Until Discontinued, Routine Given 06/21/2024 10:2 2 AM EDT 50 mg Given 06/20/2024 8:45 PM EDT 50 mg Given 06/20/2024 8:20 AM EDT 50 mg promethazine (Phenergan) 6.25 MG/5ML solution 25 mg 25 mg, Oral, Every 4 hours PRN, Starting on Tue06/18/24 at 1821, Until [facility] 06/21/24 at 1741, Routine, nausea, vomiting promethazine (Phenergan) suppository 25 mg 25 mg, Rectal, Every 4 hours PRN, Starting on Tue06/18/24 at 1821, Until [facility] 06/21/24 at 1741, Routine, nausea, vomiting promethazine (Phenergan) tablet 25 mg 25 mg, Oral, Every 4 hours PRN, Starting on Tue06/18/24 at 1821, Until [facility] 06/21/24 at 1741, Routine, nausea, vomiting Given 06/20/2024 1:10 AM EDT 25 mg Given 06/18/2024 6:27 PM EDT 25 mg rosuvastatin (Crestor) tablet 40 mg 40 mg, Oral, Nightly, First dose on Tue05/28/24 at 2100, Until Discontinued, Routine Given 06/20/2024 8:42 PM EDT 40 mg Given 06/19/2024 8:02 PM EDT 40 mg Given 06/18/2024 9:14 PM EDT 40 mg simethicone (Mylicon) chewable tablet 120 mg 120 mg, Oral, 4 times daily, First dose (after last modification) on Tue06/20/24 at 1800, Until Discontinued, Routine Given 06/21/2024 1:02 PM EDT 120 mg Given 06/21/2024 10:22 AM EDT 120 mg Given 06/20/2024 9:58 PM EDT 120 mg sodium chloride (Sullivan) 0.65 % nasal spray 1 spray 1 spray, Each Nostril, As needed, Starting on Tue06/01/24 at 2206, Until [facility] 06/21/24 at 1741, Routine, congestion Given 06/16/2024 10:22 AM EDT 1 spray Given 06/14/2024 8:31 AM EDT 1 spray Given 06/13/2024 8:35 AM EDT 1 spray sodium chloride 0.9 % flush 10 mL 10 mL, Intravenous, Every 12 hours, First dose on 05/19/24 at 0215, Until Discontinued, Routine Given 06/21/2024 1:33 PM EDT 10 mL Given 06/21/2024 2:52 AM EDT 10 mL Given 06/20/2024 2:00 PM EDT 10 mL traZODone (Desyrel) tablet 50 mg 50 mg, [...] refused) 0537 (Given - Provider: Brunilda Dawson, JAMARI)1305 (Not Given - Provider: Aleshia Curiel, JAMARI - Reason: Patient/family refused)1758 (Given - Provider: Aleshia Cuirel, JAMARI) 0102 (Given - Provider: Corinne Fuentes, JAMARI - Comment: per pt request)0555 (Not Given - Provider: Corinne Fuentes, RN - Reason: Patient/family refused)1302 (Given - Provider: [...] Routine 09 (Given - Provider: Ashwin Odom, JAMARI)2000 (Given - Provider: Brunilda Dawson, JAMARI) 0820 (Given - Provider: Aleshia Curiel, JAMARI)2040 (Given - Provider: Corinne Fuentes, JAMARI) 1024 (Given - Provider: Amy Sultana, RN) [...] RN) 2041 (Given - Provider: Corinne Fuentes, JAMARI) methocarbamol (Robaxin) tablet 1,000 mg 1,000 mg, Oral, 4 times daily, First dose (after last modification) on Tue06/16/24 at 2200, Until Discontinued, Routine 0906 (Given - Provider: Ashwin Odom RN)1434 (Given - Provider: Ashwin Odom, JAMARI)1701 (Given - Provider: Ashwin Odom RN)2114 (Given - Provider: Brunilda Dawson RN) 08 (Given - Provider: Aleshia uCriel RN)1306 (Not Given - Provider: Aleshia Curiel RN - Reason: Patient/family refused)175 (Given - Provider: Aleshia Curiel RN)215 (Given - Provider: Corinne Fuentes, JAMARI) 1022 (Given - Provider: Amy Sultana RN [...] Curiel RN)2041 (Given - Provider: Corinne Fuentes, JAMARI) 102 (Given - Provider: Amy Sultana RN [...] 0906 (Given - Provider: Ashwin Odom RN) 08 (Given - Provider: Aleshia Curiel RN) 1022 [...] Routine 1958 (Given - Provider: Brunilda Dawson, JAMARI) potassium chloride (Klor-Con) packet 40 mEq (COMPLETED)(Linked Group 2) 40 mEq, Oral, Once, 1 dose, On Tue06/19/24 at 1830, Routine 1820 (Given - Provider: Ashwin Odom, RN) primidone (Mysoline) tablet 50 mg 50 mg, Oral, 2 times daily, First dose on Tue05/27/24 at 1245, Until Discontinued, Routine 09 (Given - Provider: Ashwin Odom, JAMARI)2000 (Given - Provider: Brunilda Dawson RN) 08 (Given - Provider: Aleshia Curiel RN)2044 (Given - Provider: Corinne Fuentes, JAMARI) 102 (Given - Provider: Amy Sultana RN - Comment: pt sleeping, wanted to wait) rosuvastatin (Crestor) tablet 40 mg 40 mg, Oral, Nightly, First dose on Tue05/28/24 at 2100, Until Discontinued, Routine 2001 (Given - Provider: Brunilda Dawson, JAMARI) 2041 (Given - Provider: Corinne Fuentes, JAMARI) simethicone (Mylicon) chewable tablet 120 mg 120 mg, Oral, 4 times daily, First dose (after last modification) on Tue06/20/24 at 1800, Until Discontinued, Routine 175 (Given - Provider: Aleshia Curiel, JAMARI)215 (Given - Provider: Corinne Fuentes, JAMARI) 1022 (Given - Provider: Amy Sultana RN - Comment: pt sleeping, wanted to wait)1302 (Given - Provider: Zander Villeda RN) sodium chloride 0.9 % flush 10 mL 10 mL, Intravenous, Every 12 hours, First dose on Tue05/19/24 at 0215, Until Discontinued, Routine 0122 (Canceled Entry - Provider: Julian Jimenez)1438 (Given - Provider: Ashwin Odom, RN) 0216 (Given - Provider: Brunilda Dawson, RN)1400 (Given - Provider: Aleshia Curiel RN) 0252 (Given - Provider: Corinne Fuentes, JAMARI)1333 (Given - Provider: Amy Corbett Doctor, RN) [...] anxiety 1137 (Given - Provider: Ashwin Odom, JAMARI)1958 (Given - Provider: Brunilda Dawson, JAMARI) 2033 (Not Given - Provider: Corinne Fuentes, JAMARI - Reason: Patient/family refused) 1333 (Given - [...] PRN, Starting on 05/19/24 at 1257, Until Tue06/21/24 at 1741, Routine, vomiting, nausea 1954 (Given - Provider: Brunilda Dawson, JAMARI) 0819 (Given - Provider: Aleshia Curiel RN)2041 (Given - Provider: Corinne Fuentes, JAMARI) 1302 (Given - Provider: Zander Villeda RN) oxyCODONE (Roxicodone) immediate release tablet 5 mg (CANCELED) 5 mg, Oral, Daily PRN, Starting on Tue06/19/24 at 0851, Until Tue06/20/24 at 1513, Routine, Prior to wound vac changes only 1038 (Given - Provider: Aleshia Curiel, JAMARI) oxyCODONE (Roxicodone) immediate release tablet 5 mg 5 mg, Oral, Every 8 hours PRN, Starting on Tue06/20/24 at 1512, Until [facility] 06/21/24 at 1741, Routine, severe pain 0251 (Given - Provider: Corinne Fuentes, JAMARI)1051 (Given - Provider: Amy Sultana RN) promethazine (Phenergan) 6.25 MG/5ML solution 25 mg(Linked Group 4) 25 mg, Oral, Every 4 hours PRN, Starting on Tue06/18/24 at 1821, Until [facility] 06/21/24 at 1741, Routine, nausea, vomiting 0110 (See Alternative - Provider: Brunilda Dawson, JAMARI) promethazine (Phenergan) suppository 25 mg(Linked Group 4) 25 mg, Rectal, Every 4 hours PRN, Starting on Tue06/18/24 at 1821, Until Emily 06/21/24 at 1741, Routine, nausea, vomiting 0110 (See Alternative - Provider: Brunilda Dawson, JAMARI) promethazine (Phenergan) tablet 25 mg(Linked Group 4) 25 mg, Oral, Every 4 hours PRN, Starting on 06/18/24 at 1821, Until [facility] 06/21/24 at 1741, Routine, nausea, vomiting 0110 (Given - Provider: Brunilda Dawson, JAMARI) simethicone (Mylicon) chewable tablet 120 mg (CANCELED) 120 mg, Oral, Every 6 hours PRN, Starting on Tue05/29/24 at 1608, Until Tue06/20/24 at 1515, Routine, flatulence 1216 (Given - Provider: Ashwin Odom RN)2243 (Given - Provider: Brunilda Dawson, JAMARI) sodium chloride (Sullivan) 0.65 % nasal spray 1 spray 1 spray, Each Nostril, As needed, Starting on Tue06/01/24 at 2206, Until [facility] 06/21/24 at 1741, Routine, congestion traZODone (Desyrel) tablet 50 mg 50 mg, Oral, Nightly PRN, Starting on Tue06/17/24 at 2016, Until [facility] 06/21/24 at 1741, Routine, sleep 1958 (Given - Provider: Brunilda Dawson RN) 2034 (Not Given - Provider: Corinne Fuentes, JAMARI - Reason: Patient/family refused)2156 (Given - Provider: Corinne Fuentes, JAMARI) Linked Groups Order Group 1: buPROPion (Wellbutrin) [...] documented as of this encounter Care Teams Product Safety Engineer Relationship Specialty Start Date End Date Pcp, [place] [address] PCP - General Family Medicine 04/04/24 06/28/24 documented as of this encounter
--- OUTSIDE RECORDS SUMMARY | 2024-05-23 13:30 | XMS_ITS | Encounter Summary ---
Author Organization [facility] Address [address] [id number] Care Team Providers Care Loss Prevention Representative Name Role Phone Pcp, No Primary Care Provider Unavailabl e Reason for Visit * Auth/Cert (Routine) Specialty Diagnoses / Procedures Referred By Contac t Referred To Contact Diagnoses CAD, multiple vessel Acute NSTEMI, Left main stenosis, CAD Edson Mcclure, [address] [place] [address] Phone: tel: fax: P[facility] A Inpatient [address] [place] [address] Referral ID Status Reason Start Date Expiration Date Visits Re quested Visits Authorized [id number] 1 1 Encounter Details Date Type Department Care Team (Late st Contact Info) Description 05/23/2024 1:30 PM EDT Anesthesia Event [facility] OPERATING ROOM [address] [place] [address] Compa Cuellar MD [address] [place] [address] Cass Avila, [employer] SALES REPRESENTATIVE, DNP [address] [place] [address] Anesthesia Record Procedure Summary Procedure Name Responsible Anesthesiologist Anesthesia Start Time Anesthesia Stop Time LAPAROTOMY, EXPLORATORY, possible bowel resection, possible ostomy Compa Cuellar MD 05/23/24 1330 05/23/24 1856 Events Date Time Event Comment 05/23/2024 1329 1330 An Start The patient was reevaluated immediately before sedation and remains eligible for anesthesia plan. 1331 In Room 1334 An Start Data 1341 An Induction The patient was reevaluated immediately before moderate or deep sedation use and before anesthesia induction. 1343 An Intubation 1358 Anesthesia Ready 1419 Proc Start 1832 Proc Fin 1835 An Extubation 1845 an stop data 1846 Out of Room 1856 Handoff to Receiving I compl eted my handoff to the receiving clinician during which we: 1. Identified the patient 2. Identified the responsible provider 3. Reviewed the pertinent medical history 4. Discussed the surgical course 5. Reviewed intra-op anesthesia management and issues during anesthesia 6. Set expectations for post-procedure period 7. Allowed opportunity for questions and acknowledgement of understanding. 1856 An Stop Meds Name Total fentaNYL (Sublimaze) injection 50 mcg/mL 200 mcg lidocaine PF (Xylocaine-MPF) 2% 100 mg propofol (Diprivan) injection 10 mg/mL 1 00 mg rocuronium (ZeMuron) injection 10 mg/mL 120 mg dexamethasone (Decadron) injection 4 mg/ mL 4 mg HYDROmorphone PF (Dilaudid) injection 1 mg/mL 2 mg phenylephrine (Brian-Synephrine) prefilled syringe 1 mg/10 mL 600 mcg ondansetron (Zofran) injection 2 mg/mL 4 mg sugammadex (Bridion) injection 100 mg/mL 300 mg piperacillin-tazobactam (Zosyn) vial 4.5 g 4.5 g Adult 2-in-1 TPN Cannot be calculated calcium chloride injection 10% 0.5 g meToprolol tartrate (Lopressor) injectio n 5 mg lactated Ringer's infusion 2,000 mL sodium chloride 0.9 % infusion 400 mL * Agents Name O2 * Blood Name Total PRBC 350 mL Lines, Drains, and Airways Type Details Placement Removal Wound 05/12/24; 0800; Yes; Surgical (s/p chest insertion sites); Closed Surgi; Chest; Lower; chest tube removal site 05/12/24 0800 by Yolanda Peña RN Colostomy 05/23/24; Yes; Transverse; RUQ 05/23/24 0000 by Cele Welch RN Wound 05/23/24; 1419; Yes; Surgical; Abdomen; Upper 05/23/24 1419 by Cele Welch RN Wound 05/06/24; 1031; N; Y es; Surgical (incision); Leg (left calf SVG site); Anterior, Left, Lower; 06/21/24; 0800; Healed 05/06/24 1031 by Tobias Hanks RN 06/21/24 0800 by Amy Sultana RN Wound 05/06/24; 1035; N; Surgical (incision); Leg (calf); Right, Lower; 06/21/24; 0800; Healed 05/06/24 1035 by Tobias Hanks RN 06/21/24 0800 by Amy Sultana RN Wound 05/06/24; 1038; Yes; Surgical (incision); Sternum; 06/21/24; 0800; Healed 05/06/24 1038 by Tobias Hanks RN 06/21/24 0800 by Amy Sultana RN Wound 05/06/24; 1102; Surg ical (right calf SVG); Leg (right calf SVG); Anterior, Right, Lower (thigh); 05/30/24; 1212; Other (duplicate entry, see other LDA property) 05/06/24 1102 by Tobias Hanks RN 05/30/24 1212 by Gina Byers RN NG/OG Tube Placement Date: 05/11/24; Placement Time: 2300; Size: 14 Fr; Location: Right nostril; Removal Date: 05/25/24; Removal Time: 1700; Removal Reason: Per order 05/11/24 2300 by Cheryl Mcconnell RN 05/25/24 1700 by Sp Singer RN Peripheral IV Placement Date: 05/12/24; Placement Time: 0030; Catheter Size: 20 G; Orientation: Anterior, Left; Location: Forearm; Site Prep: Chlorhexidine ; Insertion Attempts: 1; Removal Date: 06/05/24; Removal Time: 1130 05/12/24 0030 by Cheryl Mcconnell RN 06/05/24 1130 by Suze Montez Wound 05/12/24; 0800; Y; Y es; Surgical (right thigh SVG); Catheter Ent; Leg; Anterior, Right, Upper; 05/30/24; 1214; Duplicate 05/12/24 0800 by Yolanda Peña RN 05/30/24 1214 by Gina Byers RN PICC Double Lumen Placement Date: 05/19/24; Placement Time: 0050 (created via procedure documentation); Hand Hygiene Completed: Yes; Cath Time Out Checklist Completed: Yes; Size: 4; Description: Bard DL PICC; Length: 39 cm; Orientation: Left; Location: Basilic vein (Largest vein, [id number] ratio 27%); Site Prep: Alcohol, Chlorhexidine ; Local Anesth: Injectable (lidocaine 1% without epi - 3 ml); Initial Exposed Catheter: 0 cm; Inserted by: Norma Hotl RN VAT; Insertion Attempts: 1; Placement Verification: Blood return, ECG tip confirmation, Magnetic tracking, Ultrasound; Removal Date: 06/15/24; Removal Time: 1300; Removal Reason: Per order; Removal Cath Length: 39 cm 05/19/24 0050 by Sundeep Holt RN 06/15/24 1300 by Aleshia Curiel RN ETT Placement Date: 05/23/24; Placement Time: 1343 (created via procedure documentation); Mask Ventilation: 1; Technique: Direct laryngoscopy; Type: ETT - single; Single Lumen Tube Size: 8 mm; Cuffed: Yes; Laryngoscope: Morris; Blade Size: 2; Location: Oral; Grade View: Grade IIa; Insertion Attempts: 1; Placement Verification: Auscultation, Capnometry; Airway Comments: Atraumatic. No change to dentition. ; Placed by: Other (Comment); Removal Date: 05/23/24; Removal Time: 18305/23/24 1343 by Mayda Bhatti CRNA 05/23/24 1835 by Uriah Crabtree DO Urethral Catheter Placement Date: 05/23/24; Placement Time: 1355; Inserted by: Jaime Reese RN; Type: Non-latex, Single lumen, Temperature probe; Size: 16 Fr.; Balloon Size: 10 mL; Urine Returned: Yes; Removal Date: 05/29/24; Removal Time: 1400; Removal Reason: Per order 05/23/24 1355 by Cele Welch RN 05/29/24 1400 by Karolyn Martinez RN Peripheral IV Placement Date: 05/23/24; Placement Time: 1440 (created via procedure documentation); Catheter Size: 18 G; Orientation: Left; Location: Hand; Technique: Anatomical landmarks; Inserted by: Mayda Bhatti CRNA; Insertion Attempts: 1; Removal Date: 06/05/24; Removal Time: 1130 05/23/24 1440 by Mayda Bhatti CRNA 06/05/24 1130 by Suze Montez Arterial Line Placement Date: 05/23/24; Placement Time: 1440 (created via procedure documentation); Size: 20 G; Orientation: Right; Location: Radial; Inserted by: KERRIE; Securement: Taped; Removal Date: 05/27/24; Removal Time: 1830; Removal Reason: Per order 05/23/24 1440 by Mayda Bhatti CRNA 05/27/24 1830 by pS Singer RN Closed/Suction Drain 05/23/24; 1714; Yes ; PELVIS; 1; Inferior, Left; Abdomen; Bulb; 19 Fr. 05/23/24 1714 by Cele Welch RN 06/02/24 1356 by Alessandra Keene RN Closed/Suction Drain 05/23/24; 1714; PANCREAS; 1; Left; Abdomen; Bulb; 19 Fr.; Other (Comment) (drain dislodged) 05/23/24 1714 by Cele Welch RN 06/18/24 0000 by Brooklyn Miller RN Negative Pressure Wound Therapy 05/23/24; 1757; Bartolome; Yes; Surgical (2 areas with foam with total of 3 pieces); Abdomen; Lower, Upper, Mid; 06/20/24; Other (Comment) (wound small and surfaced level) 05/23/24 175 by Cele Welch RN documented in this encounter Social History Tobacco [...] any time in the past 12 m [facility], were you homeless or living in a [facility] (including now)? No 05/02/2024 Utilities Answer Date [...] on file documented as of this encounter Functional Status * Calculated C-SSRS [...] Bynum RN documented as of this encounter Miscellaneous Notes * Anesthesia Postprocedure Evaluation - Uriah Crabtree DO - 05/23/2024 6:59 PM EDT Patient: Rere Reese Anesthesia Type: general Vitals Value Taken Time BP 116/63 05/23/24 18:59 Temp 36.8 05/23/24 18:59 Pulse 122 05/23/24 18:57 Resp 39 05/23/24 18:57 SpO2 100 % 05/23/24 18:57 Vitals shown include unfiled device data. Anesthesia Post Evaluation Patient location during evaluation: PACU Level of consciousness: awake Pain management: inadequate (pain score >3) with changes suggested below Airway patency: natural airway Cardiovascular status: acceptable and hemodynamically stable Respiratory status: acceptable, nonlabored ventilation, face mask, spontaneous ventilation and unassisted Hydration status: acceptable Nausea/Vomiting: No Comments: Pain meds given prior to leaving OR, instructed patient that the time of onset would be afew more minutes still. Informed ICU staff of the need of further pain meds for managment No notable events documented. Cosigned by Compa Cuellar MD at 05/24/2024 9:37 AM EDT Associated attestation - Compa Cuellar MD - 05/24/2024 9:37 AM EDT I agree with the findings and care plan documented in the postprocedure evaluation note. * Anesthesia Procedure Notes - Mayda Bhatti CRNA - 05/23/2024 2:40 PM EDT Associated Order(s): Arterial Line Arterial Line: An arterial line was placed. Procedure performed using ultrasound guidance in the pre-op for the following indication(s): continuous blood pressure monitoring and blood sampling needed. A 20 gauge (size), 1 and 3/4 inch (length), Arrow (type) catheter was placed into the Right radial artery and secured by tape. Seldinger technique used Staffing Performed: KERRIE REDUCING SALON ATTENDANT: Mayda Bhatti CRNA * Anesthesia Procedure Notes - Mayda Bhatti CRNA - 05/23/2024 2:39 PM EDT Associated Order(s): Peripheral IV Peripheral IV Inserted by: Mayda Bhatti CRNA Placement Needle size: 18 G Location: hand Site prep: alcohol Technique: anatomical landmarks Attempts: 1 * Anesthesia Procedure Notes - Mayda Bhatti CRNA - 05/23/2024 2:13 PM EDT Associated Order(s): Airway Airway Date/Time: 05/23/2024 1:43 PM Reason: elective Airway not difficult General Information and Staff Patient location during procedure: OR REDUCING SALON ATTENDANT: Mayda Bhatti CRNA Other anesthesia staff: Db Simental Performed: Other Anesthesia Staff Patient Condition Indications for airway management: anesthesia Patient position: sniffing Final Airway Details Final airway type: endotracheal airway Successful airway: ETT Cuffed: yes Successful intubation technique: direct laryngoscopy Endotracheal tube insertion site: oral Blade: Morris Blade size: #2 ETT size (mm): 8.0 Cormack-Lehane Classification: grade IIa - partial view of glottis Placement verified by: chest auscultation and capnometry Cuff volume (mL): 8 Measured from: lips ETT to lips (cm): 22 Additional Comments Atraumatic. No change to dentition. * Anesthesia Preprocedure Evaluation - Roslyn Villanueva MD - 05/23/2024 11:31 AM EDT Images from the original note were not included. Patient: Rere Reese Procedure Information Date/Time: 05/23/24 1300 Procedure: LAPAROTOMY, EXPLORATORY, possible bowel resection, possible ostomy Location: 2OR 11 / [facility] Surgeons: Judy Mancuso MD HPI Rere Reese is a 53 y.o. female with PMHx of HTN, HLD, COPD, GERD, tobacco use that presentswith CAD, multiple vessel s/p 4V CABG 05/06 Date Difficult Airway Blade Size ETT Size C-L Class Final Type Intubation Method 05/06/24 No 3 7.5 grade IIa - partial view of glottis endotracheal airway direct laryngoscopy T&S expires 05/25 NPO STATUS Activity Level/METS Relevant Problems Anesthesia (+) THOM (obstructive sleep apnea) Cardio (+) CAD, multiple vessel (+) Hypertension (+) NSTEMI (non-ST elevated myocardial infarction) (CMS/HCC) (+) S/P CABG x 4 Endo (+) Hypoglycemia GI (+) GERD (gastroesophageal reflux disease) (+) Ileus (CMS/HCC) /Renal (+) S/P CABG x 4 Neuro/Psych (+) S/P CABG x 4 Pulmonary (+) COPD (chronic obstructive pulmonary disease) (CMS/HCC) Digestive (+) Colon perforation (CMS/HCC) (+) Gastric perforation (CMS/HCC) Other (+) On total parenteral nutrition (TPN) SOCIAL HX Tobacco Use History[1] Social History Substance and Sexual Activity Alcohol Use Not Currently Social History Substance and Sexual Activity Drug Use Not Currently SURGICAL HX Surgical History[2] ALLERGIES Allergies[3] MEDICATIONS Scheduled aspirin, 150 mg, Rectal, Daily fat emulsion fish/plant based, 250 mL, Intravenous, Every other day heparin (porcine), 5,000 Units, Subcutaneous, q8h metoprolol tartrate, 5 mg, Intravenous, q6h pantoprazole, 40 mg, Intravenous, BID piperacillin-tazobactam, 4.5 g, Intravenous, q6h sodium chloride, 10 mL, Intravenous, q12h LABS Labs in last 18 hours CBC WBC 19.15 [...] 14 Bili 0.6 Alb ?? D.Bili ?? EKG, ECHO, Cath, Imaging, PFTs EKG Encounter Date: 05/01/24 ECG Adult Result Value EKG DIAGNOSIS CLASS Abnormal Ventricular Rate 108 Atrial Rate 108 FL Interval 118 QRSD Interval 96 QT Interval 380 QTC Interval 509 P [place] 83 R [place] 81 T Wave [place] 78 Diagnosis Sinus tachycardia Diagnosis Low voltage chest leads Diagnosis Incomplete right bundle branch block Diagnosis ST & T wave abnormality, consider anterior ischemia Diagnosis Abnormal ECG Diagnosis Diagnosis Confirmed by Graham Singleton ([id number]) on 05/23/2024 7:56:02 AM *Note: Due to a large number of results and/or encounters for the requested time period, some results have not been displayed. A complete set of results can be found in Results Review. ECHO Echo, Adult Transthoracic Complete Result Date: 05/02/2024 [...] is no recent study available for direct [id number] comparison. CXR 05/23 Stable support hardware. Cardiac silhouette and mediastinal contours are stable. Small stable left pleural effusion. No new pulmonary opacities. No pneumothorax. CT abd/pelvis 05/23 IMPRESSION: New hyperdense fluid within the left upper quadrant gas and fluid collection is compatible with active enteric leak, favored to arise from the colon at the splenic flexure. PFTs Pulmonary Functions Testing Results: FEV1 PRE (L) Date/Time Value 05/03/2024 0837 1.56 FEV1 PRED (no units) Date/Time Value 05/03/2024 0837 2.39 VAR9SUV (L) Date/Time Value 05/03/2024 0837 2.23 FVC PRED (no units) Date/Time Value 05/03/2024 0837 2.99 Body mass index is 24.42 kg/m??. Vitals: 05/23/24 1000 BP: 115/67 Pulse: 92 Resp: 16 Temp: SpO2: 96% ROS Anesthesia: obstructive sleep apnea. Does not have a history of anesthetic complications. Cardiovascular: CAD (s/p 4 vessel CABG). hypertension: Respiratory: COPD: Gastrointestinal: GERD: Physical Exam Airway Mallampati: II Mouth opening: normal TM distance: >3 FB Neck ROM: full Cardiovascular Rhythm: regular Rate: normal Dental Pulmonary Breath sounds clear to auscultation Neurological Oriented: normal to time, normal to place and normal to person and oriented to person, place and time Skin Skin: warm and dry Musculoskeletal - normal exam Extremities Other findings: NGT in left nare Anesthesia Plan ASA 4 Plan was reviewed with: REDUCING SALON ATTENDANT Anesthesia technique(s) discussed with the patient/family: general Anesthesia plan agreed upon was: general Anesthetic plan and risks discussed with patient. Use of blood products discussed with patient who consented to blood products. Additional Equipment Requests [1] Social History Tobacco Use Smoking Status Every Day Current packs/day: 0.50 Types: Cigarettes Smokeless Tobacco Never [2] Past Surgical History: Procedure Laterality Date ABDOMINAL ADHESION SURGERY SECTION, CLASSIC CHOLECYSTECTOMY CORONARY ARTERY BYPASS GRAFT 05/06/2024 Coronary artery bypass grafting x4 with FRIEND to LAD as a free graft, reverse saphenous vein graft sequential to ramus intermedius artery then to obtuse marginal artery 1, reverse saphenous vein graftto PDA.(Reda) HAND SURGERY Right Tendon repair SHOULDER SURGERY [3] Allergies Allergen Reactions Latex Other - please document in the comment field Oxycodone Nausea documented in this encounter Plan of Treatment Upcoming Encounters Date Type Department Care Team (Late st Contact Info) Description 07/31/2024 9:00 AM EDT Office Visit [facility] General Surgery [address] [place] [address] Lidia Troncoso MD [address] [place] [address] documented as of this encounter Goals Goal [...] Procedure Name Priority Date/Time Associated Diagnosis Comments ANESTHESIA ARTERIAL LINE PLACEMENT Routine 05/23/2024 2:40 PM EDT ANESTHESIA PERIPHERAL IV PLACEMENT Routine 05/23/2024 2:39 PM EDT PB ANESTHESIA PLACEHOLDER Routine 05/23/2024 1:43 PM EDT FL AN ELECTIVE ENDOTRACHEAL AIRWAY Routine 05/23/2024 1:43 PM EDT documented in this encounter Results * PB ANESTHESIA NON-TIMED PROCEDURE PLACEHOLDER (05/23/2024 2:40 PM EDT) Narrative Mayda Bhatti CRNA - 05/23/2024 2:40 PM EDT Mayda Bhatti CRNA 05/23/2024 2:40 PM Arterial Line: An arterial line was placed. Procedure performed using ultrasound guidance in the pre-op for the following indication(s): continuous blood pressure monitoring and blood sampling needed. A 20 gauge (size), 1 and 3/4 inch (length), Arrow (type) catheter was placed into the Right radial artery and secured by tape. Seldinger technique used Staffing Performed: REDUCING SALON ATTENDANT REDUCING SALON ATTENDANT: Mayda Bhatti CRNA us Roslyn Villanueva MD ANESTHESIA ORDERABLES Final Re sult * Peripheral IV (05/23/2024 2:39 PM EDT) Narrative Mayda Bhatti CRNA - 05/23/2024 2:39 PM EDT Mayda Bhatti CRNA 05/23/2024 2:40 PM Peripheral IV Inserted by: Mayda Bhatti CRNA Placement Needle size: 18 G Location: hand Site prep: alcohol Technique: anatomical landmarks Attempts: 1 Result [facility] us Roslyn Villanueva MD ANESTHESIA ORDERABLES Final Re sult * FL AN ELECTIVE ENDOTRACHEAL AIRWAY, PB ANESTHESIA PLACEHOLDER (05/23/2024 1:43 PM EDT) Mayda Vizcaino CRNA - 05/23/2024 1:43 PM EDT Mayda Bhatti CRNA 05/23/2024 2:13 PM Airway Date/Time: 05/23/2024 1:43 PM Reason: elective Airway not difficult General Information and Staff Patient location during procedure: OR REDUCING SALON ATTENDANT: Mayda Bhatti CRNA Other anesthesia staff: Db Simental Performed: Other Anesthesia Staff Patient Condition Indications for airway management: anesthesia Patient position: sniffing Final Airway Details Final airway type: endotracheal airway Successful airway: ETT Cuffed: yes Successful intubation technique: direct laryngoscopy Endotracheal tube insertion site: oral Blade: Morris Blade size: #2 ETT size (mm): 8.0 Cormack-Lehane Classification: grade IIa - partial view of glottis Placement verified by: chest auscultation and capnometry Cuff volume (mL): 8 Measured from: lips ETT to lips (cm): 22 Additional Comments Atraumatic. No change to dentition. Result [facility] us Roslyn Villanueva MD ANESTHESIA ORDERABLES Final Re sult documented in this encounter Visit Diagnoses Not on filedocumented in this encounter Administered Medications Inactive Administered Medications - up to 3 most recent administrations Medication Order MAR Action Action Date Dose Rate Site Adult 2-in-1 TPN 65 mL/hr, Continuous TPN, Starting on 05/21/24 at 2100, Until Tue05/25/24 at 2059, 1,560 mL, Administer over 24 Hours, Intravenous, Central, Routine Rate/Dose Verify 05/25/2024 8:00 PM EDT 65 mL/hr Rate/Dose Verify 05/25/2024 7:00 PM EDT 65 mL/h r Rate/Dose Verify 05/25/2024 6:00 PM EDT 65 mL/h r calcium chloride 10 % injection Intravenous, As needed, Starting on Tue05/23/24 at 1540, Until Emily 05/24/24 at 1450, Routine, Anesthesia Intraprocedure Given 05/23/2024 3:30 PM EDT 0.5 g dexamethasone (Decadron) injection Intravenous, As needed, Starting on Tue05/23/24 at 1347, Until Emily 05/24/24 at 1450, Routine, Anesthesia Intraprocedure Given 05/23/2024 1:47 PM EDT 4 mg fentaNYL (Sublimaze) injection Intravenous, As needed, Starting on Tue05/23/24 at 1341, Until Emily 05/24/24 at 1450, Routine, Anesthesia Intraprocedure Given 05/23/2024 6:43 PM EDT 100 mcg Given 05/23/2024 2:20 PM EDT 50 mcg Given 05/23/2024 1:41 PM EDT 50 mcg HYDROmorphone PF (Dilaudid) injection Intravenous, As needed, Starting on Tue05/23/24 at 1445, Until Emily 05/24/24 at 1450, Routine, Anesthesia Intraprocedure Given 05/23/2024 6:38 PM EDT 1 mg Given 05/23/2024 5:48 PM EDT 0.5 mg Given 05/23/2024 2:45 PM EDT 0.5 mg lactated Ringer's infusion Intravenous, Continuous PRN, Starting on Tue05/23/24 at 1335, Until Emily 05/24/24 at 1450, Routine New Bag 05/23/2024 6:07 PM EDT New Bag 05/23/2024 3:30 PM EDT New Bag 05/23/2024 1:35 PM EDT lidocaine PF (Xylocaine) 2 % injection Intravenous, As needed, Starting on Tue05/23/24 at 1341, Until Emily 05/24/24 at 1450, Routine, Anesthesia Intraprocedure Given 05/23/2024 1:41 PM EDT 100 mg metoprolol tartrate (Lopressor) injection Intravenous, As needed, Starting on Tue05/23/24 at 1713, Until Emily 05/24/24 at 1450, Routine, Anesthesia Intraprocedure Given 05/23/2024 5:49 PM EDT 1 mg Given 05/23/2024 5:31 PM EDT 2 mg Given 05/23/2024 5:21 PM EDT 1 mg ondansetron (Zofran) injection Intravenous, As needed, Starting on Tue05/23/24 at 1810, Until Emily 05/24/24 at 1450, Routine, Anesthesia Intraprocedure Given 05/23/2024 6:10 PM EDT 4 mg phenylephrine in NS (Brian-Synephrine) 100 mcg/mL prefilled syringe Intravenous, As needed, Starting on Tue05/23/24 at 1344, Until Emily 05/24/24 at 1450, Routine, Anesthesia Intraprocedure Given 05/23/2024 4:29 PM EDT 100 mcg Given 05/23/2024 4:27 PM EDT 100 mcg Given 05/23/2024 3:55 PM EDT 100 mcg piperacillin-tazobactam (Zosyn) injection Intravenous, As needed, Starting on Tue05/23/24 at 1417, Until Emily 05/24/24 at 1450, Routine, Anesthesia Intraprocedure Given 05/23/2024 2:17 PM EDT 4.5 g propofol (Diprivan) injection Intravenous, As needed, Starting on Tue05/23/24 at 1341, Until Emily 05/24/24 at 1450, Routine, Anesthesia Intraprocedure Given 05/23/2024 1:41 PM EDT 100 mg rocuronium (ZeMuron) injection Intravenous, As needed, Starting on Tue05/23/24 at 1342, Until Emily 05/24/24 at 1450, Routine, Anesthesia Intraprocedure Given 05/23/2024 4:22 PM EDT 20 mg Given 05/23/2024 3:15 PM EDT 20 mg Given 05/23/2024 1:42 PM EDT 80 mg sodium chloride 0.9 % infusion Intravenous, Continuous PRN, Starting on Tue05/23/24 at 1615, Until Emily 05/24/24 at 1450, Routine New Bag 05/23/2024 4:15 PM EDT sugammadex (Bridion) 100 MG/ML injection Intravenous, As needed, Starting on 05/23/24 at 1830, Until Emily 05/24/24 at 1450, Routine, Anesthesia Intraprocedure Given 05/23/2024 6:30 PM EDT 300 mg Transfuse RBC Routine New Bag 05/23/2024 3:45 PM EDT documented in this encounter Additional Health Concerns Assessment Noted Time A fall risk assessment has been complete d for the patient 06/28/2023 1:56 PM EDT A Body Mass Index follow-up plan has been documented for the patient 06/21/2024 1:40 PM EDT documented as of this encounter Care Teams Loss Prevention Representative Relationship Specialty Start Date End Date Pcp, [place] [address] PCP - General Family Medicine 04/04/24 06/28/24 documented as of this encounter
--- OUTSIDE RECORDS SUMMARY | 2024-06-29 14:30 | XMS_ITS | Encounter Summary ---
Author Organization Healthcare Address [address] [place] [address] Care Team Providers Care Marine Engine Machinist Apprentice Name Role Phone Champ Quiroz MD Primary Care Provider [phone] Reason for Visit * Reason Comments Follow-up Staple removal Encounter Details Date Type Department Care Team (Late st Contact Info) Description 06/29/2024 2:30 PM EDT Office Visit [facility] [address], [address] [place] [address] Lidia Troncoso MD [address] [place] [address] Social History Tobacco Use Types Packs/Day Years Used Date Smoking Tobacco: Former Cigarettes Q uit: 04/30/2024 Smokeless Tobacco: Never Tobacco Cessation:Counseling Given: Not Answered Alcohol Use Standard Drinks/Week Comments Not Currently [...] Answer Date Recorded Patient Health Questionnaire-2 Score 1 06/29/2024 Hunger Vital Sign Answer Date Recorded Within [...] things needed for daily living? No 05/02/2024 PHQ-9 Answer Date Recorded Patient Health Questionnaire-9 Score 1 06/29/2024 Housing Stability Vital Sign Answer Aguilar e Recorded In the last 12 months, was t here a time when you were not able to pay the mortgage or rent on time? No 05/02/2024 Number of Times Moved in the Last Year Not on fi le 05/02/2024 At any time in the past 12 m [facility], were you homeless or living in a prison (including now)? No 05/02/2024 Utilities Answer Date [...] Sign Reading Time Taken Comments Blood Pressure 104/72 06/29/2024 2:36 PM EDT Pulse 98 06/29/2024 2:36 PM EDT Temperature 36.6 C (97.8 F) 06/29/2024 2:36 PM EDT Respiratory Rate - - Oxygen Saturation - - Inhaled Oxygen Concentration - - Weight 53.3 kg (117 lb 6.4 oz) 06/29/2024 2:36 P M EDT Height 153.5 cm (5' 0.43 ) 06/29/2024 2:36 PM ED T Body Mass Index 22.6 06/29/2024 2:36 PM EDT documented in this encounter Functional Status * Over the past 2 weeks, how often have you been bothered by any of the following problems? Question Answer Date of Assessment Author Little interest or pleasure in doing things Not at all 06/29/2024 2:40 PM EDT O'HairMarva S Feeling down, depressed, or hopeless Several days 06/29/2024 2:40 PM EDT O'HairMarva Patient Health Questionnaire -2 Score 1 06/29/2024 2:40 PM EDT Thai'Marva Obando * Question Answer Date of Assessment Author Trouble falling or staying asleep, or sleeping too much Not at all 06/29/2024 2:40 PM EDT O'HairMarva S Feeling tired or having edel le energy Not at all 06/29/2024 2:40 PM EDT O'HairMarva S Poor appetite or overeating Not at all 06/29/2024 2: 40 PM EDT O'HairMarva S Feeling bad about yourself - or that you are a failure or have let yourself or your family down Not at all 06/29/2024 2:40 PM EDT O'[place] irMarva S Trouble concentrating on thi ngs, such as reading the newspaper or watching television Not at all 06/29/2024 2:40 PM EDT O'HairMarva S Moving or speaking so slowly that other people could have noticed? Or the opposite - being so fidgety or restless that you have been moving around a lot more than usual. Not at all 06/29/2024 2:40 PM EDT O'HairMarva S Thoughts that you would be better off or hurting yourself in some way Not at all 06/29/2024 2:40 PM EDT Thai'Marva Obando Patient Health Questionnaire -9 Score 1 06/29/2024 2:40 PM EDT O'Marva Obando * If you checked off any problems on this questionnaire so far, Question Answer Date of Assessment Author How difficult have these problems made it for you to do your work, take care of things at home, or get along with other people? Somewhat difficult 06/29/2024 2:40 PM EDT Marva Shaw documented as of this encounter Plan of Treatment Upcoming Encounters Date Type Department Care Team (Late st Contact Info) Description 07/31/2024 9:00 AM EDT [facility] [address] [place] [address] Lidia Troncoso MD [address] [place] [address] documented as of this encounter [...] Jd Sabillon documented as of this encounter Visit Diagnoses Not on filedocumented in this encounter Additional Health Concerns Assessment Noted Time PHQ-9 Depression Total Score: 1 06/30/19 2:40 PM EDT A fall risk assessment has been complete d for the patient 06/29/2024 2:42 PM EDT A Body Mass Index follow-up plan has been documented for the patient 06/21/2024 1:40 PM EDT documented as of this encounter Care Teams Marine Engine Machinist Apprentice Relationship Specialty Start Date End Date Champ Quiroz MD [address] [place] [address] PCP - General Internal Medicine 06/29/24 documented as of this encounter
--- OUTSIDE RECORDS SUMMARY | 2024-06-29 14:30 | XMS_ITS | Encounter Summary ---
Author Organization Healthcare Address [address] [place] [address] Care Team Providers Care Cotton Factor Name Role Phone Champ Quiroz MD Primary Care Provider + [phone] Reason for Visit * Reason Comments Follow-up Staple removal Encounter Details Date Type Department Care Team (Late st Contact Info) Description 06/29/2024 2:30 PM EDT Office Visit [place] [facility] [address] [place] [address] Lidia Troncoso MD [address] [place] [address] Social History Tobacco Use Types [...] any time in the past 12 m [facility], were you homeless or living in a [...] Description 07/31/2024 9:00 AM EDT Office Visit [place] [facility] [address] [place] [address] Lidia rToncoso MD [address] [place] [address] documented as of this encounter [...] documented as of this encounter Care Teams Cotton Factor Relationship Specialty Start Date End Date Champ Quiroz MD [address] [place] [address] PCP - General Internal Medicine 06/29/24 documented as of this encounter
--- OUTSIDE RECORDS SUMMARY | 2024-07-13 10:00 | XMS_ITS ---
Author Organization [facility] Address [address] [facility] [address] [facility] [address] [place] [address] Care Team Providers Care Buttonhole Facer Name Role Phone Michaelle Rivas Primary Care Provider [phone] Champ Quiroz [phone] REASON FOR VISIT follow up Encounters Encounter Location Date Provider Diagnosis [facility] [address] [facility] [address] [facility] [address] [place] [address] 07/13/2024 Champ Quiroz Plan Of Treatment Next Appt Details Provider Name:Champ Quiroz, 08/20/2024 03:15:00 PM, [address] [facility] [address] [facility], [address], [place], [address], Progress Notes * Rere REESE ADOB: [birth year] (53 yo F)Acc No.[id number]:07/13/2024 Progress Notes Patient: Dayana CASIANO Rere Abreu Provider: Dayana Quiroz MD :1970 A ge:53 Y S ex:Female Date:07/13/2024 Address:[address] [place] [address] [place] Pcp:Michaelle Rivas Subjective: * Chief Complaints: * 1 . Follow up. * Medical History: Objective: * Vitals: Assessment: Plan: * Treatment: * * Electronic signature of Philippe Quiroz MD FAAP on 07/23/2024 at 03:41 PM EDT Sign off status: Pending * Provider: Dayana Quiroz MD Date: 0 07/13/2024 Generated for Little catalan/Fior/Jericho on: 0 07/23/2024 03:41 PM EDT
--- OUTSIDE RECORDS SUMMARY | 2024-07-13 10:00 | XMS_ITS ---
Author Organization [facility] Address [address] [facility] [address] [facility] [address] [place] [address] Care Team Providers Care Roll Or Tape Edge Machine Operator Name Role Phone Michaelle Rivas Primary Care Provider Champ Quiroz [phone] REASON FOR VISIT follow up Encounters Encounter Location Date Provider Diagnosis [facility] [address] [facility] [address] [facility] [address] [place] [address] 07/13/2024 Champ Quiroz Plan Of Treatment Next Appt Details Provider Name:Champ Quiroz, 08/20/2024 03:15:00 PM, [address] [facility] [address] [facility], [address], [place], [address], Progress Notes * Rere REESE ADOB: [birth year] (53 yo F)Acc No.[id number]:07/13/2024 Progress Notes Patient: Dayana CASIANO Rere Abreu Provider: Dayana Quiroz MD :1970 A ge:53 Y S ex:Female Date:07/13/2024 Address:[address] [place] [address] [place] Pcp:Michaelle Rivas Subjective: * Chief Complaints: * 1 . Follow up. * Medical History: Objective: * Vitals: Assessment: Plan: * Treatment: * * Electronic signature of Philippe Quiroz MD FAAP on 07/21/2024 at 06:35 PM EDT Sign off status: Pending * Provider: Dayana Quiroz MD Date: 0 07/13/2024 Generated for Little catalan/Fior/Jericho on: 0 07/21/2024 06:35 PM EDT
--- OUTSIDE RECORDS SUMMARY | 2024-07-18 09:52 | XMS_ITS | Encounter Summary ---
Author Organization Healthcare Address [address] [place] [address] Care Team Providers Care Senior Erp Consultant Name Role Phone Champ Quiroz MD Primary Care Provider [phone] Encounter Details Date Type Department Care Team (Latest Contact Info) Description 07/18/2024 9:52 AM EDT - 07/18/2024 11:59 PM EDT [facility] [address], [address] [place] [address] CAD, multiple vessel Discharge Disposition: Home or Self Care Social History Tobacco Use Types Packs/Day Years Used Date Smoking Tobacco: Former Cigarettes Q uit: 04/30/2024 Smokeless Tobacco: Never Alcohol Use Standard Drinks/Week [...] any time in the past 12 m [facility], were you homeless or living in a fci (including now)? No 05/02/2024 AUDIT-C Answer Date Recorded Q1: How often do you have a drink containing alcohol? Never 07/18/2024 Q2: How many drinks containi ng alcohol do you have on a typical day when you are drinking? Patient does not drink Q3: How often do you have si x or more drinks on one occasion? Never 07/18/2024 Utilities Answer Date Recorded In the past 12 months has th e electric, gas, oil, or water company threatened to shut off services in your home? Yes 05/02/2024 PHQ-2A Answer Date Recorded Depression Risk 1 07/18/2024 Comments Unknown Sex and Gender Information Value Date Recorded Sex Assigned at Not on file Legal Sex Female 8:00 PM EDT Gender Identity Not on file Sexual Orientation Not on file documented as of this encounter Functional Status * AUDIT-C Score Answer Date of Assessment Author 0 07/18/2024 11:09 AM EDT Tara Ornelas * Question Answer Date of Assessment Author Q1: How often do you have a drink containing alcohol? Never 07/18/2024 11:09 AM Nelida Chen Q2: How many drinks containing alcohol do you have on a typical day when you are drinking? Patient does not drink 07/18/2024 11:09 AM Tara Chen Q3: How often do you have six or more drinks on one occasion? Never 07/18/2024 11:09 AM Nelida Chen documented as of this encounter Medications at Time of Discharge acetaminophen (Tylenol) 500 MG tablet Take 2 tablets by mouth every 6 hours as needed for pain, headaches or fever. 100 tablet 06/21/2024 aspirin 81 MG chewable tablet Chew 1 tablet daily. 30 tablet 2 07/18/2024 buPROPion XL (Wellbutrin XL) 300 MG 24 [...] 1 tablet (10 mg) by mouth daily. metoprolol tartrate (Lopressor) 25 MG tablet Take 1 tablet by mouth 2 times a day. 60 tablet 2 06/21/2024 6 metoprolol tartrate (Lopressor) 25 MG tablet Take 1.5 tablets by mouth 2 times a day. 90 tablet 1 07/18/2024 5 naloxone (Narcan) 4 mg/0.1 mL nasal spray 1. Give 1 spray in nostril for no/slow breathing or cannot wake after opioid use 2. Call 911 3. Repeat in other nostril if symptoms continue 1 each 06/21/2024 potassium chloride CR (Klor-Con M20) 20 MEQ ER tablet Take 2 tablets by mouth daily. Do not crush or chew. 60 tablet 07/18/2024 6 primidone (Mysoline) 50 MG tablet Take 1 tablet (50 mg) by mouth every 12 (twelve) hours. rosuvastatin (Crestor) 40 MG tablet Take 1 tablet by mouth nightly. 30 tablet 2 06/21/2024 simethicone (Mylicon) 80 MG chewable tablet Chew 1.5 tablets 4 times a day. 30 tablet 06/21/2024 documented as of this encounter Plan of Treatment Upcoming Encounters Date Type Department Care Team (Late st Contact Info) Description 07/31/2024 9:00 AM EDT Office Visit [facility] General Surgery [address] [place] [address] Lidia Troncoso MD [address] [place] [address] documented as of this encounter Goals Goal Patient Goal Type Associated Problems Recent Progress Patient-Stated? Author Patient will verbalize understanding of orthotic wear , care and precautions to protect surgical repair for additional 4 weeks. Occupational Therapy No Jd Sabillno Patient will demonstrate correct performance of HEP to increase IP motion within 1 therapy visit. Occupational Therapy No Jd Sabillon documented as of this encounter Procedures Procedure Name Priority Date/Time Associated Diagnosis Comments XR CHEST 2 VIEWS Routine 07/18/2024 9:58 AM EDT CAD, multiple vessel documented in this encounter Results * XR Chest 2 Views (07/18/2024 9:58 AM EDT) Anatomical Region Laterality Modality Chest Digital Radiogra phy Impressions 07/18/2024 10:01 AM EDT No acute findings. CRITICAL RESULT: No. COMMUNICATION: Per this written report Drafted by Champ Oden MD on 07/18/2024 10:01 AM Final report signed by Champ Oden MD on 07/18/2024 10:01 AM Narrative 07/18/2024 10:01 AM EDT CLINICAL INDICATION: cad TECHNIQUE: XR CHEST 2 VIEWS COMPARISON: June 21, 2024 FINDINGS: Prior median sternotomy. Mediastinal and cardiac contours are stable. No new consolidation. No pleural effusion. No pneumothorax. Cholecystectomy clips. Procedure Note Champ Oden MD - 07/18/2024 CLINICAL INDICATION: cad TECHNIQUE: XR CHEST 2 VIEWS COMPARISON: June 21, 2024 FINDINGS: Prior median sternotomy. Mediastinal and cardiac contours are stable. Nonew consolidation. No pleural effusion. No pneumothorax. Cholecystectomyclips. IMPRESSION: No acute findings. CRITICAL RESULT: No. COMMUNICATION: Per this written report Drafted by Champ Oden MD on 07/18/2024 10:01 AM Final report signed by Champ Oden MD on 07/18/2024 10:01 AM us Maite Austin MD IMG XR PROCEDURES Final Result documented in this encounter Visit Diagnoses Diagnosis CAD, multiple vessel documented in this encounter Additional Health Concerns Assessment Noted Time PHQ-9 Depression Total Score: 1 06/30/19 25 2:40 PM EDT A fall risk assessment has been complete d for the patient 07/18/2024 11:10 AM EDT A Body Mass Index follow-up plan has been documented for the patient 07/19/2024 3:49 PM EDT documented as of this encounter Care Teams Senior Erp Consultant Relationship Specialty Start Date End Date Champ Quiroz MD [address] [place] [address] PCP - General Internal Medicine 06/29/24 documented as of this encounter
--- OUTSIDE RECORDS SUMMARY | 2024-07-18 09:52 | XMS_ITS | Encounter Summary ---
Author Organization Healthcare Address [address] [place] [address] Care Team Providers Care Batch Trucker Name Role Phone Champ Quiroz MD Primary Care Provider [phone] Encounter Details Date Type Department Care Team (Latest Contact Info) Description 07/18/2024 9:52 AM EDT - 07/18/2024 11:59 PM EDT Hospital Encounter [facility] [address], [address] [place] [address] CAD, multiple vessel Discharge Disposition: Home or [...] any time in the past 12 m [facility], were you homeless or living in a group home (including now)? No 05/02/2024 AUDIT-C Answer Date [...] Description 07/31/2024 9:00 AM EDT Office Visit [facility] General Surgery [address], [address] [place] [address] Lidia Troncoso MD [address] [place] [address] documented as of this encounter [...] documented as of this encounter Care Teams Batch Trucker Relationship Specialty Start Date End Date Champ Quiroz MD [address] [place] [address] PCP - General Internal Medicine 06/29/24 documented as of this encounter
--- OUTSIDE RECORDS SUMMARY | 2024-07-18 11:00 | XMS_ITS | Encounter Summary ---
Author Organization Healthcare Address [address] [place] [address] Care Team Providers Care Handle Turner Name Role Phone Champ Quiroz MD Primary Care Provider [phone] Reason for Referral * Consultation (Routine) - Authorized Specialty Diagnoses / Procedures Referred By Contac t Referred To Contact Gynecology Diagnoses CAD, multiple vessel Tobacco use Anxiety and depression Chronic obstructive pulmonary disease, unspecified COPD type ([facility]) NSTEMI (non-ST elevated myocardial infarction) ([facility]) THOM (obstructive sleep apnea) S/P CABG x 4 Post-op pain Maite Austin MD [address] [address] Phone: tel: fax: Referral ID Status Reason Start Date Expiration Date Visits Requested Visits Authorized [id number] Authorized Specialty Services Required 07/18/2024 01/17/2026 1 1 Encounter Details Date Type Department Care Team (Late st Contact Info) Description 07/18/2024 11:00 AM EDT Office Visit OR Clinic Cardiothoracic [address], [address] [address] Maite Austin MD [address] [address] CAD, multiple vessel (Primary Dx); Tobacco use; Anxiety and depression; Chronic obstructive pulmonary disease, unspecified COPD type ([facility]); NSTEMI (non-ST elevated myocardial infarction) ([facility]); THOM (obstructive sleep apnea); S/P CABG x 4; Post-op pain Social History Tobacco Use Types Packs/Day Years [...] in the Last Year Not on fi 05/02/2024 At any time in the past 12 m [facility] [place], were you homeless or living in a [...] Recorded In the past 12 months has [employer], gas, oil, or water [employer] threatened to shut off services in your [...] Sign Reading Time Taken Comments Blood Pressure 132/82 07/18/2024 11:04 AM EDT Pulse 110 07/18/2024 11:04 AM EDT Temperature - - Respiratory Rate - - Oxygen Saturation 97% 07/18/2024 11:04 AM EDT Inhaled Oxygen Concentration - - Weight 52.7 kg (116 lb 1.2 oz) 07/18/2024 11:04 AM EDT Height 152.4 cm (5') 07/18/2024 11:04 AM EDT Body Mass Index 22.67 07/18/2024 11:04 AM EDT documented in this encounter Functional Status * AUDIT-C Score Answer Date of Assessment Author 0 07/18/2024 11:09 AM EDT Tara Ornelas * Question Answer Date of Assessment Author Q1: How often do you have a drink containing alcohol? Never 07/18/2024 11:09 AM EDT Nelida Duncan Q2: How many drinks containing alcohol do you have on a typical day when you are drinking? Patient does not drink 07/18/2024 11:09 AM EDT Tara Duncan Q3: How often do you have six or more drinks on one occasion? Never 07/18/2024 11:09 AM EDT Nelida Duncan documented as of this encounter Miscellaneous Notes * Progress Notes - Rebel Gambino MD - 07/18/2024 11:00 AM EDT Referring Provider: Reason for visit / Chief Complaint: post op History of present illness: Rere Reese is a 53 y.o. female here for follow up from CABG x 4 on 05/06/24. Her post op course was characterized by ileus s/p exploratory lap, extended left colectomy and end colostomy creation on 05/23/24 for colonic perforation. This was followed by US guided drain placement by IR on 06/04/24 for fluid collection in the abdomen (perisplenic). She presents for her first post- op visit. Patient reports she is doing well at home. She is ambulating and tolerating a diet. She complains of some abdominal soreness today but ostomy is working well. She also complains of vaginal soreness since she had her gregorio catheter removed in the hospital. Denies burning with urination. She has quitsmoking. She follows up with general surgery in 2 weeks. Problem List[1] Medical History Past Medical History Pertinent Negatives[2] Surgical History Surgical History[3] Social History: Tobacco: Tobacco Use: Medium Risk (07/18/2024) Patient History Smoking Tobacco Use: Former Smokeless Tobacco Use: Never Passive Exposure: Not on file Alcohol: Alcohol Use: Not At Risk (07/18/2024) AUDIT-C Frequency of Alcohol Consumption: Never Average Number of Drinks: Patient does not drink Frequency of Binge Drinking: Never Illicit drug use: Social History Substance and Sexual Activity Drug Use Not Currently Family History: family history is not on file. Allergies: Allergies[4] Medications: Prior to Admission medications Medication Sig Start Date End Date Taking? Authorizing Provider acetaminophen (Tylenol) 500 MG tablet Take 2 tablets by mouth every 6 hours as needed for pain, headaches or fever. 06/21/24 Yes Trinity Yousif APRN buPROPion XL (Wellbutrin XL) 300 MG 24 hr tablet take 1 tablet by mouth every 24 hours 04/20/24 Yes ProviderJaden MD citalopram (CeleXA) 40 MG tablet Take 1 tablet by mouth. 12/30/22 Yes Jaden Correa MD Combivent Respimat 20-100 MCG/ACT inhaler 03/07/23 Yes Jaden Correa MD hydrOXYzine HCl (Atarax) 10 MG tablet Take 1 tablet (10 mg) by mouth every 8 hours as needed. Yes Jaden Correa MD loratadine (Claritin) 10 MG tablet Take 1 tablet (10 mg) by mouth daily. Yes Jaden Correa MD metoprolol tartrate (Lopressor) 25 MG tablet Take 1 tablet by mouth 2 times a day. 06/21/24 06/21/25 Yes Trinity Yousif APRN naloxone (Narcan) 4 mg/0.1 mL nasal spray 1. Give 1 spray in nostril for no/slow breathing or cannot wake after opioid use 2. Call 911 3. Repeat in other nostril if symptoms continue 06/21/24 Yes Trinity Yousif APRN primidone (Mysoline) 50 MG tablet Take 1 tablet (50 mg) by mouth every 12 (twelve) hours. Yes Jaden Correa MD rosuvastatin (Crestor) 40 MG tablet Take 1 tablet by mouth nightly. 06/21/24 06/21/25 Yes Trinity Yousif APRN simethicone (Mylicon) 80 MG chewable tablet Chew 1.5 tablets 4 times a day. 06/21/24 Yes Trinity Yousif APRN aspirin 81 MG chewable tablet Chew 1 tablet daily. Patient not taking: Reported on 07/18/2024 06/22/24 06/22/25 Trinity Yousif APRN fluticasone (Flonase) 50 MCG/ACT nasal spray Administer 2 sprays into each nostril daily as needed. Patient not taking: Reported on 07/18/2024 12/24/23 Jaden Correa MD methocarbamol (Robaxin) 500 MG tablet Take 2 tablets by mouth 4 times a day for 10 days. Patient not taking: Reported on 07/18/2024 06/21/24 07/01/24 Trinity Yousif APRN Visit Vitals BP 132/82 Pulse 110 SpO2 97% Physical exam: General: alert and oriented, appropriate HEENT: normocephalic, atraumatic, normal external ears and nose Eyes: no scleral icterus, normal conjunctiva Neck: supple, no trachea deviation Lungs: symmetric chest rise, non-labored breathing Heart: Regular rate, well perfused Abdomen: soft NT/ND, ostomy with stool output Extremities: no peripheral edema Skin: no rash, no cyanosis and warm to touch Psychiatric: oriented to person/place/time and normal mood/affect Sternal Incision: well healed Labs in last 18 hours CBC WBC 13.01 (H) Hb 11.5 Plt 582 (H) Hct 35.5 ANC ?? INR ??, PTT ??, Anti-Xa ?? BMP Na ?? Cl ?? BUN ?? Glu ?? K ?? Co2 ?? Cr ?? Ca ?? iCa ?? Mg ??, Phos ?? Lactate ?? LFT AST ?? AlkPhos ?? T Prot ?? ALK ?? Bili ?? Alb ?? D.Bili ?? Imaging: Chest Xray: no effusion or pneumothorax EKG: sinus tachycardia Impression: Rere Reese is a 53 y.o. female here for follow up from CABG x 4 on 05/06/24. Her post op course was characterized by ileus s/p exploratory lap, extended left colectomy and end colostomy creation on 05/23/24 for colonic perforation. This was followed by US guided drain placement by IR on 06/04/24 for fluid collection in the abdomen (perisplenic). She presents for her first post- op visit. Patient is recovering well at home. She has a good appetite and is ambulating. Ostomy is functioning. Plan: Increase metoprolol to 37.5mg BID Refilled aspirin 81mg Check blood pressure and heart rate daily at home Follow up with remote pilot operator (Dr. Bentley) and PCP Follow up with general surgery Recommend cardiac rehab Referral to gynecology for vaginal soreness Continue sternal precautions until 3 months from surgery Follow up as needed with CT surgery [1] Patient Active Problem List Diagnosis Anxiety and depression COPD (chronic obstructive pulmonary disease) ([facility]) Tobacco use CAD, multiple vessel NSTEMI (non-ST elevated myocardial infarction) ([facility]) GERD (gastroesophageal reflux disease) Leukocytosis Essential tremor Thrombocytosis Hypocalcemia Hyperlipidemia THOM (obstructive sleep apnea) S/P CABG x 4 Hypertension Post-op pain Hyponatremia Hypomagnesemia Transaminitis Sinus tachycardia Incomplete RBBB Tremor Hypertriglyceridemia Hypoalphalipoproteinemia S/P colostomy ([facility]) S/P colon resection BMI 22.0-22.9, adult [2] Past Medical History: Diagnosis Date Anxiety COPD (chronic obstructive pulmonary disease) ([facility]) 05/01/2024 Continue Duo nebs q6 SPO2 goal >88% Depression GERD (gastroesophageal reflux disease) 05/01/2024 Continue Protonix 40 mg daily Hyperkalemia 05/06/2024 Now resolved, pt with hypokalemia requiring replacement On mechanically assisted ventilation ([facility]) 05/06/2024 Arrived to ICU intubated [facility]08 resolved Tobacco use 05/01/2024 Technology Resource Teacher for smoking 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 Complicates all [...] SURGERY Right Tendon repair SHOULDER SURGERY [4] Allergies Allergen Reactions Latex Other - please document in the comment field Cosigned by Maite Austin MD at 07/19/2024 3:49 PM EDT Associated attestation - Maite Austin MD - 07/19/2024 3:49 PM EDT I saw and evaluated the patient with the resident/fellow. I discussed the case with the resident/fellow and agree with the findings and plan as documented. The patient's potassium was low on her labs today which is likely secondary to her colostomy. We contacted the patient and ordered potassium replacement and we will arrange for her to see primary care physician in order to follow up on her potassium. documented in this encounter Plan of Treatment Upcoming Encounters Date Type Department Care Team (Late st Contact Info) Description 07/31/2024 9:00 AM EDT Office Visit [facility] General Surgery [address], [address] [place] [address] Lidia Troncoso MD [address] [place] [address] Scheduled Referrals Name Type Priority Associated Diagnoses Orde r Schedule Ambulatory referral to Gynecology Outpatient Referral Routine CAD, multiple vessel Tobacco use Anxiety and depression Chronic obstructive pulmonary disease, unspecified COPD type (CMS/HCC) NSTEMI (non-ST elevated myocardial infarction) ([facility]) THOM (obstructive sleep apnea) S/P CABG x 4 Post-op pain Expected: 07/18/2024 (Approximate), Expires: 01/19/2026 documented as of this encounter Goals Goal [...] Procedure Name Priority Date/Time Associated Diagnosis Comments ECG ADULT Routine 07/18/2024 11:22 AM EDT CAD, multiple vessel documented in this encounter Results * ECG Adult (07/18/2024 11:22 AM EDT) EKG DIAGNOSIS CLASS Abnormal MUSE ECG Ventricular Rate 109 BPM MUSE ECG Atrial Rate 109 BPM MUSE ECG FL Interval 120 ms MUSE ECG QRSD Interval 70 ms MUSE ECG QT Interval 394 ms MUSE ECG QTC Interval 530 ms MUSE ECG P [place] 77 degrees MUSE ECG R [place] 79 degrees MUSE ECG T Wave [place] 100 degrees MUSE ECG Diagnosis Sinus tachycardia MUSE ECG Diagnosis Nonspecific ST and T wave abnormality MUSE ECG Diagnosis MUSE ECG Diagnosis MUSE ECG Diagnosis MUSE ECG Diagnosis Confirmed by Yahaira Gomez ([id number]) on 07/18/2024 9:29:04 PM MUSE ECG 07/18/2024 11:2 2 AM EDT 07/18/2024 9:29 PM EDT us Maite Austin MD ECG ORDERABLES Final Result Performing Organization Address [facility]/ZIP Co de Phone Number MUSE ECG * (ABNORMAL) Basic Metabolic Panel, Plasma (07/18/2024 10:14 AM EDT) Glucose, Plasma 126(H) 74 - 99 mg/dL 07/18/2024 12:13 PM EDT [facility] BUN, Plasma 5(L) 7 - 21 mg/dL 07/18/2024 12:13 PM EDT [facility] Creatinine, Plasma 0.54(L) 0.60 - 1.10 mg/dL 07/18/2024 12:13 PM EDT [facility] BUN/Creatinine Ratio 9 07/18/2024 12:13 PM EDT [facility] Sodium, Plasma 137 136 - 145 mmol/L 07/18/2024 12:13 PM EDT [facility] Potassium, Plasma 2.5(LL) 3.6 - 4.9 mmol/L 07/18/2024 12:13 PM EDT [facility] Chloride, Plasma 95(L) 97 - 107 mmol/L 07/18/2024 12:13 PM EDT [facility] CO2, Plasma 29 22 - 29 mmol/L 07/18/2024 12:13 PM EDT [facility] Anion Gap 13 6 - 16 mmol/L 07/18/2024 12:13 PM EDT [facility] Total Calcium, Plasma 8.2(L) 8.9 - 10.2 mg/dL 07/18/2024 12:13 PM EDT [facility] eGFRcr 109.6 mL/min/1.7 3m*2 07/18/2024 12:13 PM EDT [facility] Comment:Reported eGFRcr in m L/min/1.73m2 is based the CKD-EPI 2020 equation that does not use a race coefficient. Blood Venous blood specimen / Unknown Venipuncture / Unknown 07/18/2024 10:14 AM EDT 07/18/2024 10:14 AM EDT us Maite Austin MD LAB BLOOD ORDERABLES Final Resu lt [facility] [address] [place] [address] * (ABNORMAL) CBC W/O Differential (07/18/2024 10:14 AM EDT) WBC Count 13.01(H) 3.70 - 10.30 10*3/uL LAB HEMATOLOGY METHOD 07/18/2024 11:08 AM EDT [facility] RBC Count 3.97 3.90 - 5.20 10*6/uL LAB HEMATOLOGY METHOD 07/18/2024 11:08 AM EDT [facility] HGB 11.5 11.2 - 15.7 g/dL LAB HEMATOLOGY METHOD 07/18/2024 11:08 AM EDT [facility] HCT 35.5 34.0 - 45.0 % LAB HEMATOLOGY METHOD 07/18/2024 11:08 AM EDT [facility] Platelet Count 582(H) 155 - 369 10*3/uL LAB HEMATOLOGY METHOD 07/18/2024 11:08 AM EDT [facility] MCV 89 79 - 98 fL LAB HEMATOLOGY METHOD 07/18/2024 11:08 AM EDT [facility] MCH 29.0 26.0 - 32.0 pg LAB HEMATOLOGY METHOD 07/18/2024 11:08 AM EDT [facility] MCHC 32.4 30.7 - 35.5 g/dL LAB HEMATOLOGY METHOD 07/18/2024 11:08 AM EDT [facility] RDW 14.9(H) 11.5 - 14.5 % LAB HEMATOLOGY METHOD 07/18/2024 11:08 AM EDT [facility] MPV 9.1 8.8 - 12.5 fL LAB HEMATOLOGY METHOD 07/18/2024 11:08 AM EDT [facility] nRBC 0.0 <=0.0 per 100 WBCs LAB HEMATOLOGY METHOD 07/18/2024 11:08 AM EDT [facility] Blood Venous blood specimen / Unknown Venipuncture / Unknown 07/18/2024 10:14 AM EDT 07/18/2024 10:14 AM EDT us Maite Austin MD LAB BLOOD ORDERABLES Final Resu lt [facility] [address] [place] [address] * XR Chest 2 Views (07/18/2024 9:58 [...] Visit Diagnoses Diagnosis CAD, multiple vessel- Primary Tobacco use Anxiety and depression Chronic obstructive pulmonary disease, unspecified COPD type ([facility]) NSTEMI (non-ST elevated myocardial infarction) ([facility]) Acute myocardial infarction, subendocardial infarction, episode of care unspecified THOM (obstructive sleep apnea) Obstructive sleep apnea (adult) (pediatric) S/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 Post-op pain Other acute postoperative pain CAD, multiple vessel documented in this encounter Additional Health Concerns Assessment Noted Time PHQ-9 Depression Total Score: 1 06/30/19 25 2:40 PM EDT A fall risk assessment has been complete d for the patient 07/18/2024 11:10 AM EDT A Body Mass Index follow-up plan has been documented for the patient 07/19/2024 3:49 PM EDT documented as of this encounter Care Teams Handle Turner Relationship Specialty Start Date End Date Champ Quiroz MD [address] [place] [id number] PCP - General Internal Medicine 06/29/24 documented as of this encounter
--- OUTSIDE RECORDS SUMMARY | 2024-07-18 11:00 | XMS_ITS | Encounter Summary ---
Author Organization Healthcare Address [address] [place] [address] Care Team Providers Care Process Control Operator Name Role Phone Champ Quiroz MD Primary Care Provider [phone] Reason for Referral * Consultation (Routine) - Authorized Specialty Diagnoses / Procedures Referred By Contac t Referred To Contact Gynecology Diagnoses CAD, multiple vessel Tobacco use Anxiety and depression Chronic obstructive pulmonary disease, unspecified COPD type ([facility]) NSTEMI (non-ST elevated myocardial infarction) ([facility]) THOM (obstructive sleep apnea) S/P CABG x 4 Post-op pain Maite Austin MD [address] [address] Phone: tel: fax: Referral ID Status Reason Start Date Expiration Date Visits Requested Visits Authorized [id number] Authorized Specialty Services Required 07/18/2024 01/17/2026 1 1 Encounter Details Date Type Department Care Team (Late st Contact Info) Description 07/18/2024 11:00 AM EDT Office Visit [facility] [address], [address] [address] Maite Austin MD [address] [address] CAD, multiple vessel (Primary Dx); Tobacco use; Anxiety and depression; Chronic obstructive pulmonary disease, unspecified COPD type ([facility]); NSTEMI (non-ST elevated myocardial infarction) ([facility]); THOM (obstructive sleep apnea); S/P [...] were you homeless or living in a chcf (including now)? No 05/02/2024 AUDIT-C Answer Date [...] Recorded In the past 12 months has [employer], gas, oil, or water [email or web address] threatened to shut off services in your [...] post op History of present illness: Rere Resee is a 53 y.o. female here for [...] rate daily at home Follow up with special procedures nurse (Dr. Bentley) and PCP Follow up with general surgery Recommend cardiac rehab Referral to gynecology for vaginal soreness Continue sternal precautions until 3 months from surgery Follow up as needed with CT surgery [1] Patient Active Problem List Diagnosis Anxiety and depression COPD (chronic obstructive pulmonary disease) ([facility]) Tobacco use CAD, multiple vessel NSTEMI (non-ST elevated myocardial infarction) ([facility]/HCC) GERD (gastroesophageal reflux disease) Leukocytosis Essential tremor Thrombocytosis Hypocalcemia Hyperlipidemia THOM (obstructive sleep apnea) S/P CABG x 4 Hypertension Post-op pain Hyponatremia Hypomagnesemia Transaminitis Sinus tachycardia Incomplete RBBB Tremor Hypertriglyceridemia Hypoalphalipoproteinemia S/P colostomy (CMS/[facility]) S/P colon resection BMI 22.0-22.9, adult [2] Past Medical History: Diagnosis Date Anxiety COPD (chronic obstructive pulmonary disease) ([facility]) 05/01/2024 Continue Duo nebs q6 SPO2 goal >88% Depression GERD (gastroesophageal reflux disease) 05/01/2024 Continue Protonix 40 mg daily Hyperkalemia 05/06/2024 Now resolved, pt with hypokalemia requiring replacement On mechanically assisted ventilation ([facility]) 05/06/2024 Arrived to ICU intubated 05/07 extubated to [facility] 05/08 resolved Tobacco use 05/01/2024 Degreasing Solution Mixer for smoking 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 Complicates all [...] Description 07/31/2024 9:00 AM EDT Office Visit [facility] General Surgery [address], [address] [place] [address] Lidia Troncoso MD [address] [place] [address] Scheduled Referrals Name Type Priority Associated Diagnoses Orde r Schedule Ambulatory referral to Gynecology Outpatient Referral Routine CAD, multiple vessel Tobacco use Anxiety and depression Chronic obstructive pulmonary disease, unspecified COPD type (CMS/HCC) NSTEMI (non-ST elevated myocardial infarction) (CMS/[facility]) THOM (obstructive sleep apnea) S/P [...] ECG Atrial Rate 109 BPM MUSE ECG UT Interval 120 ms MUSE ECG QRSD Interval 70 ms MUSE ECG QT Interval 394 ms MUSE ECG QTC Interval 530 ms MUSE ECG P Barling 77 degrees MUSE ECG R [place] 79 degrees MUSE ECG T Wave [place] 100 degrees MUSE ECG Diagnosis Sinus tachycardia MUSE ECG Diagnosis Nonspecific ST and T wave abnormality MUSE ECG Diagnosis MUSE ECG Diagnosis MUSE ECG Diagnosis MUSE ECG Diagnosis Confirmed by Yahaira Gomez ([id number]) on 07/18/2024 9:29:04 PM MUSE ECG 07/18/2024 11:2 2 AM EDT 07/18/2024 9:29 PM EDT us Maite Austin MD ECG ORDERABLES Final Result Performing Organization Address [facility]/ZIP Co de Phone Number MUSE ECG * (ABNORMAL) Basic Metabolic Panel, Plasma (07/18/2024 10:14 AM EDT) Glucose, Plasma 126(H) 74 - 99 mg/dL 07/18/2024 12:13 PM EDT [facility] BUN, Plasma 5(L) 7 - 21 mg/dL 07/18/2024 12:13 PM EDT [facility] Creatinine, Plasma 0.54(L) 0.60 - 1.10 mg/dL 07/18/2024 12:13 PM EDT [facility] BUN/Creatinine Ratio 9 07/18/2024 12:13 PM EDT [facility] Sodium, Plasma 137 136 - 145 mmol/L 07/18/2024 12:13 PM EDT [facility] Potassium, Plasma 2.5(LL) 3.6 - 4.9 mmol/L 07/18/2024 12:13 PM EDT [facility] Chloride, Plasma 95(L) 97 - 107 mmol/L 07/18/2024 12:13 PM EDT [facility] CO2, Plasma 29 22 - 29 mmol/L 07/18/2024 12:13 PM EDT [facility] Anion Gap 13 6 - 16 mmol/L 07/18/2024 12:13 PM EDT [facility] Total Calcium, Plasma 8.2(L) 8.9 - 10.2 mg/dL 07/18/2024 12:13 PM EDT [facility] eGFRcr 109.6 mL/min/1.7 3m*2 07/18/2024 12:13 PM EDT [facility] Comment:Reported eGFRcr in m L/min/1.73m2 is based the CKD-EPI 2020 equation that does not use a race coefficient. Blood Venous blood specimen / Unknown Venipuncture / Unknown 07/18/2024 10:14 AM EDT 07/18/2024 10:14 AM EDT us Maite Austin MD LAB BLOOD ORDERABLES Final Resu lt [facility] [address] [place] [address] * (ABNORMAL) CBC W/O Differential (07/18/2024 10:14 AM EDT) WBC Count 13.01(H) 3.70 - 10.30 10*3/uL LAB HEMATOLOGY METHOD 07/18/2024 11:08 AM EDT [facility] RBC Count 3.97 3.90 - 5.20 10*6/uL LAB HEMATOLOGY METHOD 07/18/2024 11:08 AM EDT [facility] HGB 11.5 11.2 - 15.7 g/dL LAB HEMATOLOGY METHOD 07/18/2024 11:08 AM EDT [facility] HCT 35.5 34.0 - 45.0 % LAB HEMATOLOGY METHOD 07/18/2024 11:08 AM EDT [facility] Platelet Count 582(H) 155 - 369 10*3/uL LAB HEMATOLOGY METHOD 07/18/2024 11:08 AM EDT [facility] MCV 89 79 - 98 fL LAB HEMATOLOGY METHOD 07/18/2024 11:08 AM EDT [facility] MCH 29.0 26.0 - 32.0 pg LAB HEMATOLOGY METHOD 07/18/2024 11:08 AM EDT [facility] MCHC 32.4 30.7 - 35.5 g/dL LAB HEMATOLOGY METHOD 07/18/2024 11:08 AM EDT [facility] RDW 14.9(H) 11.5 - 14.5 % LAB HEMATOLOGY METHOD 07/18/2024 11:08 AM EDT [facility] MPV 9.1 8.8 - 12.5 fL LAB HEMATOLOGY METHOD 07/18/2024 11:08 AM EDT [facility] nRBC 0.0 <=0.0 per 100 WBCs LAB HEMATOLOGY METHOD 07/18/2024 11:08 AM EDT [facility] Blood Venous blood specimen / Unknown Venipuncture / Unknown 07/18/2024 10:14 AM EDT 07/18/2024 10:14 AM EDT us Maite Austin MD LAB BLOOD ORDERABLES Final Resu lt [facility] [address] [place] [address] * XR Chest 2 Views (07/18/2024 9:58 [...] documented as of this encounter Care Teams Process Control Operator Relationship Specialty Start Date End Date Champ Quiroz MD [address] [place] [address] PCP - General Internal Medicine 06/29/24 documented as of this encounter
--- OUTSIDE RECORDS SUMMARY | 2024-07-18 12:30 | XMS_ITS ---
Author Organization [facility] Address [address] [facility] [address] [place] [address] Care Team Providers Care City Collector Name Role Phone Michaelle Rivas Primary Care Provider [phone] Champ Quiroz Unavailable [phone] Allergies Allergen (clinical drug ingredient) Drug/Non Drug Allergy documented on EMR Reaction Allergy Type Onset Date Status LATEX GLOVES (uncoded) Unknown Allergy Active acetaminophen / oxycodone Percocet stomach upset, sweating Drug Allergy Active Reason For Referral Reason Dr. Alvarado - [facility] chair post machine operator Diagnosis 1 Pelvic pain in femal e (R10.2) Referral Organization [facility] Referring Provider First Name Champ Referring Provider Last Name Richie Referring Provider Speciality Internal M edicine Referred Organization [facility] Referred Address [address] [place] [address], [facility] Referred Provider Specialty Gynecology ( Osteopaths only) General Notes Bisi Tsai 2024 11:13:39 AM >[facility]- faxed to [facility] Referral Priority Routine REASON FOR VISIT F/U-vaginal pain-needs referral to [facility]-had catheter while in the hosp and states that something is not right Medications Medication SIG (Take, Route, Frequency, Duration) Notes Start Date End Date Status Citalopram Hydrobromide 40 MG 1 tab(s) orally once a day for 90 days Active Combivent Respimat 20-100 MCG/ACT INHALE 1 PUFF BY MOUTH 4 TIMES DAILY for 30 days prn Active Pyridium 200 MG 1 tablet after meals Orally Three times a day for 2 days 07/02/2024 Active buPROPion HCl ER (XL) 300 MG 1 tab(s) or ally every 24 hours for 30 days 04/20/2024 Active hydrOXYzine HCl 10 MG 1 tab orally every 8 hours for 30 days Active Flonase Allergy Relief 50 MCG/ACT 1 spray in each nostril Nasally Twice a day Active Loratadine 10 MG 1 tablet Orally Once a day Active Aspirin 81 81 MG 1 tablet Orally Once a day Active Primidone 50 MG 1 tab(s) orally twic e a day for 90 days Active Acetaminophen 500 MG 2 tablet as needed Orally every 6 hrs Active Simethicone 80 MG 1 tablet after meals and at bedtime as needed Orally Four times a day Active Metoprolol Tartrate 25 MG 1 tablet Orall y Twice a day Active Rosuvastatin Calcium 40 MG 1 tablet Oral ly Once a day Active Social History Tobacco Use: Social History Observation Description Date Details (start date - stop date) Current Smoker NA - NA Smoking: Question Answer Notes Are you a: current smoker How often do you smoke cigarettes? every day How many cigarettes a day do you smoke? 21-30 How soon after you wake up d o you smoke your first cigarette? 6-30 min Are you interested in quitting? Thinking about q uitting Additional Findings: Tobacco User Heavy cigarett e smoker (20-39 cigs/day) Problems Problem Type SNOMED Code ICD Code Onset Dates Problem Status W/U Status Risk Notes Problem 5178003 Panlobular emphysema (J43.1) Active confirmed Vital Signs Temperature 97.8 degrees Fahrenheit 07/19/19 25 Blood pressure systolic 104 mm Hg 07/19/19 25 Blood pressure diastolic 70 mm Hg 025 Heart Rate 96 /min 07/18/2024 Height 5 ft 1 in in 07/18/2024 Weight 117.8 lbs 07/18/2024 BMI 22.26 kg/m2 07/18/2024 Encounters Encounter Location Date Provider Diagnosis [facility] [address] [place], [place] [address] 07/18/2024 Champ Quiroz Pelvic pain in female R10.2 and Panlobular emphysema J43.1 Assessments Encounter Date Diagnosis (ICD Code) Assessment Notes Treatment Notes Treatment Clinical Notes Section Notes 07/18/2024 Pelvic pain in female (ICD-10 - R10.2) [facility] evaluation. Possible ongoing problems from catheter but will have them take a look 07/18/2024 Panlobular emphysema (ICD-10 - J43.1) Stable. Off cigarettes, continue inhalers. Plan Of Treatment Treatment Notes Assessment Notes Pelvic pain in female [facility] evaluation. Possible ongoing problems from catheter but will have them take a look Panlobular emphysema Stable. Off cigaret kayla, continue inhalers. Referrals Referral Date Details 07/18/2024 07/18/2024, Dr. Nanda gonzalez - [facility] chair post machine operator, [address] [facility] [address], [place], [address], Next Appt Details Follow Up: prn, Reason: Provider Name:Champ Quiroz, 08/20/2024 03:15:00 PM, [address] [facility] [address], [address], [place], [address], Progress Notes * CONHALRere ADOB: [birth year] (53 yo F)Acc No.[id number]:07/18/2024 Progress Notes Patient: Rere DICKSON Provider: Dayana Quiroz MD :1970 A ge:53 Y S ex:Female Date:07/18/2024 Address:[address] [place] [address] , [id number] Pcp:Michaelle Rivas Subjective: * Chief Complaints: * 1 . F/U-vaginal pain-needs referral to [facility]-had catheter while in the hosp and states that something is not right. * HPI: g en: Overall feels better, remains off cigarettes. Very happy with this. Tremor is better. Feels good, good activity levels.Main concern is vaginal pain, think she has pelvic pain down into her vagina when she moves around, wonders about the long-term effect from her catheter during her hospitalization in April through June. * Medical History: H ormone replacement therapy, Depression, Copd, Asthma, Smoker, Tremors. * Surgical History: l t rotator cuff 2020, rt hand surgery 01/2023, colon resection 04/30/24. * Hospitalization/Major Diagno stic Procedure: H [facility] 01/2022, [facility]- heart attach 04/30/2024-06/28/24. * Family History: F ather: , Cholesterol , lung issues, diagnosed with Heart Disease. M other: . P aternal Grand Father: . P aternal Grand Mother: . M aternal Grand Father: . M aternal Grand Mother: . P aternal uncle: alive. M aternal uncle: alive. M aternal aunt: alive. S iblings: alive. C hildren: alive. 2 sister(s) - healthy. 2 son(s) , 1 daughter(s) - healthy. . * Social History: S moking A re you a: c urrent smoker, H ow often do you smoke cigarettes? e very day, H ow many cigarettes a day do you smoke? 2 1-30, H ow soon after you wake up do you smoke your first cigarette? 6 -30 min, A re you interested in quitting? T hinking about quitting, A dditional Findings: Tobacco User H eavy cigarette smoker (20-39 cigs/day). Recreational drug use: yes, Past use:. Exercise: yes. Home smoke detector use: yes. Caffeine: yes, frequency:coffee, soft drinks, tea. Living Will: No. Alcohol: no. Sexually active: no. Travel outside [place]: no. Occupation: [employer] tr[employer]. * Medications: T aking Simethicone 80 MG Tablet Chewable 1 tablet after meals and at bedtime as needed Orally Four times a day , Taking Rosuvastatin Calcium 40 MG Tablet 1 tablet Orally Once a day , Taking Metoprolol Tartrate 25 MG Tablet 1 tablet Orally Twice a day , Taking Loratadine 10 MG Tablet 1 tablet Orally Once a day , Taking Flonase Allergy Relief 50 MCG/ACT Suspension 1 spray in each nostril Nasally Twice a day , Taking Aspirin 81 81 MG Tablet Delayed Release 1 tablet Orally Once a day , Taking Acetaminophen 500 MG Tablet 2 tablet as needed Orally every 6 hrs , Taking Primidone 50 MG Tablet 1 tab(s) orally twice a day , Taking Combivent Respimat 20-100 MCG/ACT Aerosol Solution INHALE 1 PUFF BY MOUTH 4 TIMES DAILY , Notes to Pharmacist: prn, Taking Citalopram Hydrobromide 40 MG Tablet 1 tab(s) orally once a day , Taking buPROPion HCl ER (XL) 300 MG Tablet Extended Release 24 Hour 1 tab(s) orally every 24 hours , Taking Pyridium 200 MG Tablet 1 tablet after meals Orally Three times a day , Taking hydrOXYzine HCl 10 MG Tablet 1 tab orally every 8 hours , Medication List reviewed and reconciled with the patient * Allergies: L ATEX GLOVES, Percocet: stomach upset, sweating - Side Effects. Objective: * Vitals: N urse: jl, Pain: 6-vaginal area, Temp: 97.8, RR: 18, HR: 96, BP: 104/70, Ht: 5 ft 1 in, Wt: 117.8, BMI:22.26. * Examination: G eneral Examination: General P leasant, cooperative, tremor noted. At baseline. Oral cavity: M oist membranes. Heart: R egular Rate and Rhythm, no murmur, rubs or gallops. HEENT: p harynx and tonsils normal, TM's normal. Lungs: L CTAB, No wheezes, crackles or rhonchi, Good air movement,. Abdomen: B ilateral lower quadrant pain into the pelvic?Areas No rebound or guarding. No CVA.. ? Assessment: * Assessment: 1. P elvic pain in female - R10.2 (Primary) 2 . P anlobular emphysema - J43.1 Plan: * Treatment: 2. P anlobular emphysema Notes: Stable. Off cigarettes, continue inhalers. * Follow Up: p rn * * Sign off status: Completed true * Provider: Dayana Quiroz MD Date: 07/18/2024 Generated for Aleshiai alayna/Fior/Lataitting on: 0 07/23/2024 03:43 PM EDT History and Physical Notes * HPI (History of Present Illness) Category Sub-Category Detail Notes Category Not es gen Overall feels better, remains off cigarettes. Very happy with this. Tremor is better. Feels good, good activity levels.Main concern is vaginal pain, think she has pelvic pain down into her vagina when she moves around, wonders about the long-term effect from her catheter during her hospitalization in April through June Examination Category Sub-Category Detail Notes Category Not es General Examination HEENT: pharynx and tonsils normal, TM's normal Heart: Regular Rate and Rhy thm, no murmur, rubs or gallops Lungs: LCTAB, No wheezes, c rackles or rhonchi, Good air movement, Abdomen: Bilateral lower quad rant pain into the pelvic Areas No rebound or guarding. No CVA. Oral cavity: Moist membranes General Pleasant, cooperativ e, tremor noted. At baseline Consultation Request Notes Referral Date Referring Provider Referred Provider Not es 07/18/[address] Canaan - [facility] chair post machine operator
--- OUTSIDE RECORDS SUMMARY | 2024-07-18 12:30 | XMS_ITS ---
Author Organization [facility] Address [address] [facility] [address] [facility] [address] [place] [address] Care Team Providers Care Dumper Mold Cleaner Name Role Phone Michaelle Rivas Primary Care Provider [phone] Champ Quiroz Unavailable [phone] Allergies Allergen (clinical drug ingredient) Drug/Non Drug Allergy documented on EMR Reaction Allergy Type Onset Date Status LATEX GLOVES (uncoded) Unknown Allergy Active acetaminophen / oxycodone Percocet stomach upset, sweating Drug Allergy Active Reason For Referral Reason Dr. Alvarado - [facility] risk manager Diagnosis 1 Pelvic pain in femal e (R10.2) Referral Organization [facility] Referring Provider First Name Champ Referring Provider Last Name Richie Referring Provider Speciality Internal M edicine Referred Organization [facility] Referred Address [address] [place] [address], [facility] Referred Provider Specialty Gynecology ( Osteopaths only) General Notes Bisi Tsai 2024 11:13:39 AM >[facility]- faxed to [facility] Referral Priority Routine REASON FOR VISIT F/U-vaginal pain-needs referral to [facility]ANTRY[facility]-had catheter while in the hosp and states [...] Problem Status W/U Status Risk Notes Problem 0855156 Panlobular emphysema (J43.1) Active confirmed Vital Signs Temperature 97.8 degrees Fahrenheit 07/19/19 25 Blood pressure systolic 104 mm Hg 07/19/19 25 Blood pressure diastolic 70 mm Hg 025 Heart Rate 96 /min 07/18/2024 Height 5 ft 1 in in 07/18/2024 Weight 117.8 lbs 07/18/2024 BMI 22.26 kg/m2 07/18/2024 Encounters Encounter Location Date Provider Diagnosis [facility] [address] [place], [place] [address] 07/18/2024 Champ Quiroz Pelvic pain in female R10.2 and Panlobular emphysema J43.1 Assessments Encounter Date Diagnosis (ICD Code) Assessment Notes Treatment Notes Treatment Clinical Notes Section Notes 07/18/2024 Pelvic pain in female (ICD-10 - R10.2) INFANTRYMAN evaluation. Possible ongoing problems from catheter but will have them take a look 07/18/2024 Panlobular emphysema (ICD-10 - J43.1) Stable. Off cigarettes, continue inhalers. Plan Of Treatment Treatment Notes Assessment Notes Pelvic pain in female INFANTRYMAN evaluation. Possible ongoing problems from catheter but will have them take a look Panlobular emphysema Stable. Off cigaret kayla, continue inhalers. Referrals Referral Date Details 07/18/2024 07/18/2024, Dr. Nanda gonzalez - [facility] risk manager, [address] [facility] [address], [place], [address], Next Appt Details Follow Up: prn, Reason: Provider Name:Champ Quiroz, 08/20/2024 03:15:00 PM, [address] [facility] [address], [address], [place], [address], Progress Notes * CONHALRere ADOB: [birth year] (53 yo F)Acc No.[id number]:07/18/2024 Progress Notes Patient: Rere DICKSON Provider: Dayana Quiroz MD :1970 A ge:53 Y S ex:Female Date:07/18/2024 Address:[address] [place] [address] , [id number] Pcp:Michaelle Rivas Subjective: * Chief Complaints: * 1 . F/U-vaginal pain-needs referral to INFANTRYMAN-had catheter while in the hosp and states [...] no. Travel outside US: no. 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 * Medications: T aking Simethicone 80 MG [...] 07/18/2024 Generated for Aleshiai alayna/Fior/Lataitting on: 0 07/21/2024 06:38 PM EDT History and Physical Notes * [...] es 07/18/[address] Canaan - [facility] risk manager
--- OUTSIDE RECORDS SUMMARY | 2024-07-20 09:59 | XMS_ITS ---
Author Organization [facility] Address [address] [facility] [address] [facility] [address] [place] [address] Care Team Providers Care Gem Carver Name Role Phone Rob Michaelle Primary Care Provider Champ Quiroz [phone] Encounters Encounter Location Date Provider Diagnosis [facility] [address] [facility] [address] [facility] [address] [place] [address] 07/20/2024 Michaelle Rivas Hypokalemia E87.6 Assessments Encounter Date Diagnosis (ICD Code) Assessment Notes Treatment Notes Treatment Clinical Notes Section Notes 07/20/2024 Hypokalemia (ICD-10 - E87.6) Plan Of Treatment Future Test Test Name Order Date BASIC METABOLIC PANEL (87200) 07/23/2024 MAGNESIUM (622) 07/23/2024 Next Appt Details Provider Name:Champ Quiroz, 08/20/2024 03:15:00 PM, [address] [facility] [address] [facility], [address], [place], [address], Progress Notes * Rere REESE ADOB: [birth year] (53 yo F)Acc No.[id number]:07/20/2024 Patient: Rere DICKSON :1970 A ge:53 Y S ex:Female Address:[address] [place] [address] [place] [address] Subjective: * Chief Complaints: * * Medical History: * Surgical History: * Hospitalization/Major Diagno stic Procedure: * Medications: Objective: * Vitals: * Physical Examination: Assessment: * Assessment: 1. H ypokalemia - E87.6 (Primary) Plan: * Treatment: * Procedure Codes: * * Date:
--- OUTSIDE RECORDS SUMMARY | 2024-07-20 09:59 | XMS_ITS ---
Author Organization [facility] Address [address] [facility] 36 [facility] [address] [place] [address] Care Team Providers Care Farmer Vegetable Name Role Phone Rob Michaelle Primary Care Provider [phone] Champ Quiroz [phone] Encounters Encounter Location Date Provider Diagnosis [facility] [address] [facility] 36 [facility] [address] [place] [address] 07/20/2024 Michaelle Rivas Hypokalemia E87.6 Assessments Encounter Date Diagnosis (ICD Code) Assessment Notes Treatment Notes Treatment Clinical Notes Section Notes 07/20/2024 Hypokalemia (ICD-10 - E87.6) Plan Of Treatment Future Test Test Name Order Date BASIC METABOLIC PANEL ([id number]) 07/23/2024 MAGNESIUM (622) 07/23/2024 Next Appt Details Provider Name:Champ Quiroz, 08/20/2024 03:15:00 PM, [address] [facility] 36 [facility], [address], [place], [address], Progress Notes * Rere REESE ADOB: [birth year] (53 yo F)Acc No.[id number]:07/20/2024 Patient: Rere DICKSON :1970 A ge:53 Y S ex:Female Address:[address] [place] [address] [place] [address] Subjective: * Chief Complaints: * * Medical History: * Surgical History: * Hospitalization/Major Diagno stic Procedure: * Medications: Objective: * Vitals: * Physical Examination: Assessment: * Assessment: 1. H ypokalemia - E87.6 (Primary) Plan: * Treatment: * Procedure Codes: * * Date:
[2024-07-21] VITALS (7 sets, daily range): BP systolic 116–153; BP diastolic 78–98; PULSE 91–125; RESP 11–20; TEMP 36.8–37.3; O2SAT 94–99; BMI 22.8
--- OUTSIDE RECORDS SUMMARY | 2024-07-21 18:36 | XMS_ITS | Encounter Summary ---
Author Organization Healthcare Address [address] [place] [address] Care Team Providers Care Sales Leader Name Role Phone Pcp, No Primary Care Provider Unavailabl e Encounter Details Date Type Department Care Team (Latest Contact Info) Description 05/22/2024 Travel Social History Tobacco Use Types Packs/Day Years [...] any time in the past 12 m [facility], were you homeless or living in a intermediate (including now)? No 05/02/2024 Utilities Answer Date [...] Date of Assessment Author No Risk Indicated 05/22/2024 8:00 PM EDT Lora Fuller RN * Question Answer Date of Assessment Author 1. Wish to be (Past 1 Month) No 025 8:00 PM EDT Lora Fuller, RN 2. Non-Specific Active Suici erica Thoughts (Past 1 Month) No 05/22/2024 8:00 PM EDT Gilmar Fuller RN 6. Suicidal Behavior (Lifetime) No 8:00 PM EDT Lora Fuller, RN documented as of this encounter Plan of Treatment Upcoming Encounters Date Type Department Care Team (Late st Contact Info) Description 07/31/2024 9:00 AM EDT Office Visit [facility] General Surgery [address], [address] [place] [address] Lidia Troncoso MD [address] [place] [address] documented as of this encounter Goals Goal Patient Goal Type Associated Problems Recent Progress Patient-Stated? Author Patient will verbalize understanding of orthotic wear , care and precautions to protect surgical repair for additional 4 weeks. Occupational Therapy Jd Dupree Patient will demonstrate correct performance of HEP to increase IP motion within 1 therapy visit. Occupational Therapy Jd Dupree documented as of this encounter Visit Diagnoses Not on filedocumented in this encounter Additional Health Concerns Assessment Noted Time A fall risk assessment has been complete d for the patient 06/28/2023 1:56 PM EDT A Body Mass Index follow-up plan has been documented for the patient 06/21/2024 1:40 PM EDT documented as of this encounter Care Teams Sales Leader Relationship Specialty Start Date End Date Pcp, [place] [address] PCP - General Family Medicine 04/04/24 06/28/24 documented as of this encounter
--- OUTSIDE RECORDS SUMMARY | 2024-07-21 18:36 | XMS_ITS | Encounter Summary ---
Author Organization Healthcare Address [address] [place] [address] Care Team Providers Care Truant Officer Name Role Phone Pcp, No Primary Care Provider Unavailabl e Encounter Details Date Type Department Care Team (Latest Contact Info) Description 05/23/2024 Travel Social History Tobacco Use Types Packs/Day [...] any time in the past 12 m [facility], were you homeless or living in [...] Author No Risk Indicated 05/23/2024 8:00 AM Tere Rodriguez RN * Question Answer Date of Assessment Author 1. Wish to be (Past 1 Month) No 025 8:00 AM Tere Rodriguez, RN 2. Non-Specific Active Suici erica Thoughts (Past 1 Month) No 05/23/2024 8:00 AM Vianey Rodriguez RN 6. Suicidal Behavior (Lifetime) No 8:00 AM Tere Rodriguez, RN documented as of this encounter Plan of Treatment Upcoming Encounters Date Type Department Care Team (Late st Contact Info) Description 07/31/2024 9:00 AM EDT Office Visit [facility] General Surgery [address], [address] [place] [address] Lidia Troncoso MD [address] [place] [address] documented as of this encounter Goals Goal [...] documented as of this encounter Care Teams Truant Officer Relationship Specialty Start Date End Date Pcp, [place] [address] PCP - General Family Medicine 04/04/24 06/28/24 documented as of this encounter
--- OUTSIDE RECORDS SUMMARY | 2024-07-21 18:36 | XMS_ITS | Encounter Summary ---
Author Organization Healthcare Address [address] [place] [address] Care Team Providers Care Business Loan Processor Name Role Phone Pcp, No Primary Care Provider Unavailabl e Encounter Details Date Type Department Care Team (Latest Contact Info) Description 05/24/2024 Travel Social History Tobacco Use Types Packs/Day [...] any time in the past 12 m [facility], were you homeless or living in [...] on file documented as of this encounter Plan of Treatment Upcoming Encounters Date Type Department Care Team (Late st Contact Info) Description 07/31/2024 9:00 AM EDT Office Visit [facility] General Surgery [address], [address] [place] [address] Lidia Troncoso MD [address] [place] [address] documented as of this encounter Goals Goal [...] documented as of this encounter Care Teams Business Loan Processor Relationship Specialty Start Date End Date Pcp, [place] [address] PCP - General Family Medicine 04/04/24 06/28/24 documented as of this encounter
--- OUTSIDE RECORDS SUMMARY | 2024-07-21 18:36 | XMS_ITS | Encounter Summary ---
Author Organization Healthcare Address [address] [place] [address] Care Team Providers Care Bilingual Case Manager Name Role Phone Pcp, No Primary Care Provider Champ Butler MD Primary Care Provider + [phone] Encounter Details Date Type Department Care Team (Late st Contact Info) Description 05/21/2024 Lab Requisition [facility] [address] [place] [address] Tom Dyson MD [address] [facility] [address] [place] [address] Encounter for general adult medical examination without abnormal findings Social History Tobacco Use Types Packs/Day Years [...] were you homeless or living in a mcfp (including now)? No 05/02/2024 Utilities Answer Date [...] 1 Month) No 025 8:00 AM Tere Rodriguez RN 2. Non-Specific Active Suici erica Thoughts (Past 1 Month) No 05/23/2024 8:00 AM EDVianey Armas RN 6. Suicidal Behavior (Lifetime) No 8:00 AM EDT Tere Bynum RN documented as of this encounter Plan of Treatment Upcoming Encounters Date Type Department Care Team (Late st Contact Info) Description 07/31/2024 9:00 AM EDT Office Visit [facility] General Surgery [address], [address] [place] [address] Lidia Troncoso MD [address] [place] [address] documented as of this encounter [...] Procedure Name Priority Date/Time Associated Diagnosis Comments MULTI DRUG RESISTANCE TEST Routine 05/21/2024 11:00 AM EDT Encounter for general adult medical examination without abnormal findings documented in this encounter Results * Multi Drug Resistance Test (05/21/2024 11:00 AM EDT) Culture No growth at day 1 05/22/2024 8:46 AM EDT [facility] Swab (Nares and Jacey Rectal) 05/21/2024 11:00 AM EDT 05/21/2024 11:55 AM EDT us Tom Dyson MD LAB MICROBIOLOGY - GEN ERAL ORDERABLES Final Result [facility] [address] [place] [address] documented in this encounter Visit Diagnoses Diagnosis Encounter for general adult medical examination without abnormal findings documented in this encounter Additional Health Concerns Assessment Noted Time A fall risk assessment has been complete d for the patient 06/28/2023 1:56 PM EDT A Body Mass Index follow-up plan has been documented for the patient 06/21/2024 1:40 PM EDT documented as of this encounter Care Teams Bilingual Case Manager Relationship Specialty Start Date End Date Pcp, Katherine [address] [place] [address] PCP - General Family Medicine 04/04/24 06/28/24 Champ Quiroz MD [address] [place] [address] PCP - General Internal Medicine 06/29/24 documented as of this encounter
--- OUTSIDE RECORDS SUMMARY | 2024-07-21 18:42 | XMS_ITS | Encounter Summary ---
Author Organization [facility] Address [address] [place] [address] Care Team Providers Care Draw String Knotter Name Role Phone Champ Quiroz MD Primary Care Provider + [phone] Encounter Details Date Type Department Care Team (Latest Contact Info) Description 06/29/2024 Travel Social History Tobacco Use Types Packs/Day [...] any time in the past 12 m [facility], were you homeless or living in a fci (including now)? No 05/02/2024 Utilities Answer Date [...] as of this encounter Functional Status * Over the past 2 weeks, how often have you been bothered by any of the following problems? Question Answer Date of Assessment Author Little interest or pleasure in doing things Not at all 06/29/2024 2:40 PM EDT Thai'Marva Obando Feeling down, depressed, or hopeless Several days 06/29/2024 2:40 PM EDT Thai'Marva Obando Patient Health Questionnaire -2 Score 1 06/29/2024 2:40 PM EDT Thai'Marva Obando * Question Answer Date of Assessment Author Trouble falling or staying asleep, or sleeping too much Not at all 06/29/2024 2:40 PM EDT Thai'Marva Obando Feeling tired or having edel le energy Not at all 06/29/2024 2:40 PM EDT Thai'Marva Obando Poor appetite or overeating Not at all 06/29/2024 2: 40 PM EDT Marva Shaw S Feeling bad about yourself - or that you are a failure or have let yourself or your family down Not at all 06/29/2024 2:40 PM EDT Thai'Marva [place] Trouble concentrating on thi ngs, such as reading the newspaper or watching television Not at all 06/29/2024 2:40 PM EDT Marva Shaw S Moving or speaking so slowly that other people could have noticed? Or the opposite - being so fidgety or restless that you have been moving around a lot more than usual. Not at all 06/29/2024 2:40 PM Marva Lopez Thoughts that you would be better off or hurting yourself in some way Not at all 06/29/2024 2:40 PM Marva Lopez Patient Health Questionnaire -9 Score 1 06/29/2024 2:40 PM Marva Lopez * If you checked off any problems on this questionnaire so far, Question Answer Date of Assessment Author How difficult have these problems made it for you to do your work, take care of things at home, or get along with other people? Somewhat difficult 06/29/2024 2:40 PM Marva Lopez documented as of this encounter Plan of Treatment Upcoming Encounters Date Type Department Care Team (Late st Contact Info) Description 07/31/2024 9:00 AM EDT Office Visit [facility] General Surgery [address] [place] [address] Lidia Troncoso MD [address] [place] [address] documented as of this encounter [...] documented as of this encounter Care Teams Draw String Knotter Relationship Specialty Start Date End Date Champ Quiroz MD [address] [place] [address] PCP - General Internal Medicine 06/29/24 documented as of this encounter
--- OUTSIDE RECORDS SUMMARY | 2024-07-21 18:42 | XMS_ITS | Encounter Summary ---
Author Organization Healthcare Address [address] [place] [address] Care Team Providers Care Rubber Molder Name Role Phone Pcp, No Primary Care Provider Unavailabl e Reason for Visit * Reason Onset Date Comments HCN Clinical Concern/Question 06/26/2024 Encounter Details Date Type Department Care Team (Late st Contact Info) Description 06/26/2024 Telephone [facility] General Surgery [address], [address] [place] [address] Judy Mancuso MD [address] [place] [address] HCN Clinical Concern/Question Social History Tobacco Use Types Packs/Day Years [...] in the past 12 m [facility], were you homeless or living in a usp (including now)? No 05/02/2024 Utilities Answer Date [...] on file documented as of this encounter Miscellaneous Notes * Telephone Encounter - Leola Montano RN - 06/27/2024 9:16 AM EDT Spoke with patient. She will be able to get a ride to come in for staple removal on 06/29 at 2:30. Clinic notified. * Telephone Encounter - Leola Montano RN - 06/27/2024 8:50 AM EDT Message received from Dr. Mancuso that the f/u with Dr. Troncoso and an appointment with any provider for staple removal is appropriate. * Telephone Encounter - Leola Montano RN - 06/26/2024 2:55 PM EDT Called patient. No answer. Message left with contact information. Op note says sheridan were used to close skin. * Telephone Encounter - Cece Caraballo - 06/26/2024 1:55 PM EDT I called and talked with patient about her breakout of sweating. Patient denied taking any meds before episode, denied having a fever, episodes last approx. 10 minutes.denies rapid heart rate, dizziness of faint feelings. Had been having these sweats before her 05/23 surgery.denied being johnnie- pausalhad hysterectomy 2016. Offered her appointment time for 06/[address]idan removed from 05/23 surgery. * Telephone Encounter - Janice Lackey - 06/26/2024 1:06 PM EDT Clinical Concern/Question Reason for Call: Tried nurse line, patient was just discharged last and she is breaking out in sweats asking to talk to nurse Best contact number: [phone] (home) Optimal time of day to reach caller: ANYTIME Additional comments/information from caller: None Note: Please do not reply to this message. Follow-up communication and further actions as a result of this message need to be communicated with the patient directly, if the patient is not active onMyChart. If the patient is active on MyChart, they will receive notification of the communication/outcome via [employer]. documented in this encounter Plan of Treatment Upcoming Encounters Date Type Department Care Team (Late st Contact Info) Description 07/31/2024 9:00 AM EDT Office Visit [facility] General Surgery [address] [place] [address] Lidia Troncoso MD [address] [place] [address] documented as of this encounter [...] documented as of this encounter Care Teams Rubber Molder Relationship Specialty Start Date End Date Pcp, [place] [address] PCP - General Family Medicine 04/04/24 06/28/24 documented as of this encounter
--- OUTSIDE RECORDS SUMMARY | 2024-07-21 18:42 | XMS_ITS | Encounter Summary ---
Author Organization Healthcare Address [address] [place] [address] Care Team Providers Care Emery Grinder Name Role Phone Champ Quiroz MD Primary Care Provider [phone] Encounter Details Date Type Department Care Team (Late st Contact Info) Description 07/20/2024 Telephone [facility] [address], [address] [place] [address] Ana Luisa Simental RN [id number] [address] [id number] Social History Tobacco Use Types Packs/Day Years [...] time in the past 12 m [facility], were you homeless or living in a care home (including now)? No 05/02/2024 AUDIT-C Answer [...] the past 12 months has th e [employer], [employer], oil, or water [employer] threatened to shut off services in your home? Yes 05/02/2024 PHQ-2A Answer Date Recorded Depression Risk 1 07/18/2024 Comments Unknown Sex and Gender Information Value Date Recorded Sex Assigned at Not on file Legal Sex Female 8:00 PM EDT Gender Identity Not on file Sexual Orientation Not on file documented as of this encounter Miscellaneous Notes * Telephone Encounter - Ana Luisa Simental RN - 07/20/2024 2:[address] Quiroz's office of potassium and need for f/u. Lab and note sent documented in this encounter Plan of Treatment Upcoming Encounters Date Type Department Care Team (Late st Contact Info) Description 07/31/2024 9:00 AM EDT Office Visit [facility] General Surgery [address], [address] [place] [address] Lidia Troncoso MD [address] [place] [address] documented as of this encounter [...] documented as of this encounter Care Teams Emery Grinder Relationship Specialty Start Date End Date Champ Quiroz MD [address] [place] [address] PCP - General Internal Medicine 06/29/24 documented as of this encounter
--- OUTSIDE RECORDS SUMMARY | 2024-07-21 18:42 | XMS_ITS | Encounter Summary ---
Author Organization Healthcare Address [address] [id number] Care Team Providers Care Psych Sales Specialist Name Role Phone Pcp, No Primary Care Provider Unavailabl e Encounter Details Date Type Department Care Team (Late st Contact Info) Description 06/26/2024 Telephone [facility] [address], [address] [place] [address] Ana Luisa Simental, RN [id number] [address] [place] [address] Social History Tobacco Use Types Packs/Day Years [...] the past 12 months has th e [employer], gas, oil, or water [employer] threatened to shut off services in your [...] Encounter - Ana Luisa Simental RN - 06/26/2024 1:06 PM EDT Pt called to report hot sweats, denies fevers, denies perimenopause/menopause. 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 Advisedpt to call the general surgery team for f/u of hot sweats. Pt verbalized understanding and agreed to POC documented in this encounter Plan of Treatment Upcoming Encounters Date Type Department Care Team (Late st Contact Info) Description 07/31/2024 9:00 AM EDT Office Visit [facility] [address] [place] [address] Lidia Troncoso MD [address] [place] [address] documented as of this encounter [...] documented as of this encounter Care Teams Psych Sales Specialist Relationship Specialty Start Date End Date Pcp, [place] [address] PCP - General Family Medicine 04/04/24 06/28/24 documented as of this encounter
--- OUTSIDE RECORDS SUMMARY | 2024-07-21 18:42 | XMS_ITS | Encounter Summary ---
Author Organization [facility] Address [address] [place] [address] Care Team Providers Care Commercial Loan Underwriter Name Role Phone Champ Quiroz MD Primary Care Provider + [phone] Encounter Details Date Type Department Care Team (Latest Contact Info) Description 07/18/2024 Travel Social History Tobacco Use Types Packs/Day [...] time in the past 12 m [facility], were you homeless or living in [...] the past 12 months has th e [employer], gas, oil, or water company threatened to [...] of Assessment Author 0 07/18/2024 11:09 AM Tara Lopez * Question Answer Date of Assessment Author [...] Nelida Duncan documented as of this encounter Plan of Treatment Upcoming Encounters Date Type Department Care Team (Late st Contact Info) Description 07/31/2024 9:00 AM EDT Office Visit [facility] General Surgery [address], [address] [place] [address] Lidia Troncoso MD [address] [place] [address] documented as of this encounter [...] documented as of this encounter Care Teams Commercial Loan Underwriter Relationship Specialty Start Date End Date Champ Quiroz MD [address] [place] [address] PCP - General Internal Medicine 06/29/24 documented as of this encounter
--- OUTSIDE RECORDS SUMMARY | 2024-07-21 18:42 | XMS_ITS | Encounter Summary ---
Author Organization Healthcare Address [address] [place] [address] Care Team Providers Care Panel Assembler Name Role Phone Pcp, No Primary Care Provider Unavailabl e Encounter Details Date Type Department Care Team (Late st Contact Info) Description 06/25/2024 Telephone [facility] General Surgery [address], [address] [place] [address] Katharine Urbano RN TRAUMA & ACUTE CARE SURG [facility] ACUTE T1 Social History Tobacco Use Types Packs/Day Years [...] any time in the past 12 m [facility], were you homeless or living in [...] encounter Miscellaneous Notes * Telephone Encounter - Katharine Urbano RN - 06/25/2024 12:03 PM EDT Called pts daughter and got the correct phone number for pt. Updated phone info. Called pt and verified she does not have a drain. She does not. She is feeling well and does not have any concerns. She has a follow up scheduled with Dr Troncoso in July. We have cancelled appt for tomorrow since it was for drain removal. Will schedule with Dr. Mancuso at her next clinic visit if still needed after seeing CRS. Pt is agreeable to this plan and has our number in case any questions or concerns arise. documented in this encounter Plan of Treatment Upcoming Encounters Date Type Department Care Team (Late st Contact Info) Description 07/31/2024 9:00 AM EDT Office Visit [facility] General Surgery [address], [address] [place] [address] Lidia Troncoso MD [address] [place] [address] documented as of this encounter [...] documented as of this encounter Care Teams Panel Assembler Relationship Specialty Start Date End Date Pcp, [place] [address] PCP - General Family Medicine 04/04/24 06/28/24 documented as of this encounter
--- OUTSIDE RECORDS SUMMARY | 2024-07-21 18:42 | XMS_ITS | Encounter Summary ---
Author Organization Healthcare Address [address] [place] [address] Care Team Providers Care Casting Machine Service Operator Name Role Phone Pcp, No Primary Care Provider Champ Butler MD Primary Care Provider + [phone] Encounter Details Date Type Department Care Team (Late st Contact Info) Description 05/14/2024 Lab Requisition [facility] [address] [place] [address] Tom Dyson MD [address] [facility] [address] [place] [id number] Encounter for general adult medical examination without [...] any time in the past 12 m [facility], were you homeless or living in a half-way (including now)? No 05/02/2024 Utilities Answer Date [...] Date of Assessment Author No Risk Indicated 05/17/2024 8:00 PM PITOT Linda Amor * Question Answer Date of Assessment Author 1. Wish to be (Past 1 Month) No 025 8:00 PM PITOT Linda Amor 2. Non-Specific Active Suici erica Thoughts (Past 1 Month) No 05/17/2024 8:00 PM EDT Roberto Amor tt 6. Suicidal Behavior (Lifetime) No 8:00 PM Linda Khanna documented as of this encounter Plan of Treatment Upcoming Encounters Date Type Department Care Team (Late st Contact Info) Description 07/31/2024 9:00 AM EDT Office Visit [facility] General Surgery [address] [place] [address] Lidia Troncoso MD [address] [place] [address] documented as of this encounter [...] Diagnosis Comments MULTI DRUG RESISTANCE TEST Routine 05/14/2024 8:24 AM EDT Encounter for general adult medical examination without abnormal findings documented in this encounter Results * Multi Drug Resistance Test (05/14/2024 8:24 AM EDT) Culture No growth at day 1 05/15/2024 11:17 AM EDT [facility] Swab (Nares and Jacey Rectal) 05/14/2024 8:24 AM EDT 05/14/2024 2:12 PM EDT us Tom Dyson MD LAB MICROBIOLOGY - GEN ERAL ORDERABLES Final Result [facility] [address] [place] [address] documented in this encounter Visit Diagnoses Diagnosis [...] documented as of this encounter Care Teams Casting Machine Service Operator Relationship Specialty Start Date End Date Pcp, [place] [address] PCP - General Family Medicine 04/04/24 06/28/24 Champ Quiroz MD [address] [place] [address] PCP - General Internal Medicine 06/29/24 documented as of this encounter
--- OUTSIDE RECORDS SUMMARY | 2024-07-21 18:42 | XMS_ITS | Encounter Summary ---
Author Organization Healthcare Address [address] [place] [address] Care Team Providers Care Cover Operator Name Role Phone Pcp, No Primary Care Provider Unavailabl e Encounter Details Date Type Department Care Team (Latest Contact Info) Description 06/21/2024 Travel Social History Tobacco Use Types Packs/Day [...] any time in the past 12 m [facility], were you homeless or living in [...] Description 07/31/2024 9:00 AM EDT Office Visit [facility] General Surgery [address] [place] [address] Lidia Troncoso MD [address] [place] [address] documented as of this encounter Goals Goal [...] documented as of this encounter Care Teams Cover Operator Relationship Specialty Start Date End Date Pcp, [place] [address] PCP - General Family Medicine 04/04/24 06/28/24 documented as of this encounter
--- OUTSIDE RECORDS SUMMARY | 2024-07-21 18:43 | XMS_ITS | Clinical Summary ---
Author Organization [facility] Address [address] [place] [address] Care Team Providers Care Livestock Sales Representative Name Role Phone Champ Quiroz MD Primary Care Provider [phone] Allergies Active Allergy Reactions Criticality Noted Date Comments Latex Other - please docum ent in the comment field Low 09/10/2020 Medications citalopram (CeleXA) 40 MG tablet Take 1 tablet by mouth. 3 Active primidone (Mysoline) 50 MG tablet Take 1 tablet (50 mg) by mouth every 12 (twelve) hours. Active Combivent Respimat 20-100 MCG/ACT inhaler 4 Active hydrOXYzine HCl (Atarax) 10 MG tablet Take 1 tablet (10 mg) by mouth every 8 hours as needed. Active buPROPion XL (Wellbutrin XL) 300 MG 24 hr tablet take 1 tablet by mouth every 24 hours 5 Active fluticasone (Flonase) 50 MCG/ACT nasal spray Administer 2 sprays into each nostril daily as needed. 4 Active loratadine (Claritin) 10 MG tablet Take 1 tablet (10 mg) by mouth daily. Active acetaminophen (Tylenol) 500 MG tablet Take 2 tablets by mouth every 6 hours as needed for pain, headaches or fever. 100 tablet 5 Active methocarbamol (Robaxin) 500 MG tablet Take 2 tablets by mouth 4 times a day for 10 days. 80 tablet 5 Active Additional Information Patient not taking.Reported on 07/18/2024 metoprolol tartrate (Lopressor) 25 MG tablet Take 1 tablet by mouth 2 times a day. 60 tablet 2 5 026 Active naloxone (Narcan) 4 mg/0.1 mL nasal spray 1. Give 1 spray in nostril for no/slow breathing or cannot wake after opioid use 2. Call 911 3. Repeat in other nostril if symptoms continue 1 each 5 Active rosuvastatin (Crestor) 40 MG tablet Take 1 tablet by mouth nightly. 30 tablet 2 5 026 Active simethicone (Mylicon) 80 MG chewable tablet Chew 1.5 tablets 4 times a day. 30 tablet 5 Active metoprolol tartrate (Lopressor) 25 MG tablet Take 1.5 tablets by mouth 2 times a day. 90 tablet 1 5 025 Active aspirin 81 MG chewable tablet Chew 1 tablet daily. 30 tablet 2 5 026 Active potassium chloride CR (Klor-Con M20) 20 MEQ ER tablet Take 2 tablets by mouth daily. Do not crush or chew. 60 tablet 5 026 Active aspirin 81 MG chewable tablet Chew 1 tablet daily. 30 tablet 2 5 025 Discontinu ed(Reorder ) oxyCODONE (Roxicodone) 5 MG immediate release tablet Take 1 tablet by mouth every 8 hours as needed for severe pain for up to 3 days. 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 Austin Aspirin, statin, beta stacey Hypertension 05/06/2024 Thrombocytosis 05/04/2024 Hypocalcemia 05/04/2024 Hyperlipidemia 05/04/2024 THOM (obstructive sleep apnea) 05/04/2024 Overview (06/14/2024): Leukocytosis 05/02/2024 Essential tremor 05/02/2024 Anxiety and depression 05/01/2024 COPD (chronic obstructive pulmonary disease) Tobacco use 05/01/2024 Overview (06/14/2024): CAD, multiple vessel 05/01/2024 Overview (06/14/2024): Patient presented to OSH on 05/01/24 c/o chest pain, LHC reveal mvCAD S/p CABG with Dr. Austin on 05/07 NSTEMI (non-ST elevated myocardial infarction) 0 05/01/2024 Overview (06/14/2024): Diagnosed at OSH with elevated troponins of 0.05 to 0.23 to 0.16 GERD (gastroesophageal reflux disease) Resolved Problems Problem Noted Date Diagnosed Date Resolved Date Hyperkalemia 06/21/2024 06/21/2024 Overweight 06/16/2024 06/21/2024 Abdominal fluid collection 06/10/2024 0 06/21/2024 Acute respiratory failure with hypoxia 06/10/2024 06/11/2024 Hypokalemia 06/10/2024 06/11/2024 Thrombocytopenia 06/10/2024 06/21/2024 Hypernatremia 06/10/2024 06/11/2024 Hypermagnesemia 06/10/2024 06/11/2024 Hyperphosphatemia 06/10/2024 06/11/2024 Hypophosphatemia 06/10/2024 06/11/2024 MESHA (acute kidney injury) 06/10/2024 Pleural effusion 06/10/2024 06/11/2024 Delirium 05/29/2024 06/11/2024 Overview (05/29/2024): Hospital delirium Delirium precautions Ileus 05/23/2024 06/11/2024 Overview (05/28/2024): S/p colectomy & end colostomy 05/23 03/18 perforation On total parenteral nutrition (TPN) 05/21/2024 06/11/2024 Overview (05/28/2024): Started on 05/20 Obtaining PO calorie count. Will DC TPN when able. Gastric perforation 05/20/2024 06/22/19 Overview (06/11/2024): colonic perforation. S/p ex lap 05/23/24 Acute blood loss anemia (ABLA) 05/14/2024 06/21/2024 Overview (06/14/2024): Hypoglycemia 05/09/2024 06/11/2024 Overview (05/23/2024): Resolved once TPN started Nausea with vomiting 05/09/2024 025 Overview (05/28/2024): TPN running Advance PO diet as able On mechanically assisted ventilation 05/06/2024 05/09/2024 Overview (05/08/2024): Arrived to ICU intubated 05/07 extubated to 4LNC 05/08 resolved Low cardiac output syndrome 05/06/2024 05/16/2024 Overview (05/11/2024): LVEF 45% Requiring epi 05/07 epi wean currently .03 Epi off 05/09 SBP within goal 05/11 off all gtts SBP within goal Cardiac volume overload 05/06/2024 04/2 09/2024 Overview (05/18/2024): Diuresis as clinically indicated Prolonged Q-T interval on ECG 05/04/2024 06/21/2024 Overview (05/07/2024): 05/07 EKG reviewed Colon perforation 05/01/2024 06/21/2024 Overview (06/11/2024): Noted on CT scan 05/23/24 S/p left colectomy and end colostomy 05-23-24 Encounters Date Type Department Care Team Description 07/20/2024 Telephone [facility] Cardiothoracic [address], [address] [place] [address] Ana Luisa Simental RN 07/18/2024 11:00 AM EDT Office Visit [facility] Cardiothoracic [address], [address] [place] [phone] Maite Austin MD CAD, multiple vessel (Primary Dx); Tobacco use; Anxiety and depression; Chronic obstructive pulmonary disease, unspecified COPD type ([facility]); NSTEMI (non-ST elevated myocardial infarction) ([facility]); THOM (obstructive sleep apnea); S/P CABG x 4; Post-op pain 07/18/2024 9:52 AM EDT - 07/18/2024 11:59 PM EDT Hospital Encounter [facility] Radiology [address], [address] [place] [phone] CAD, multiple vessel Discharge Disposition: Home or Self Care 07/18/2024 Travel 06/29/2024 2:30 PM EDT Office Visit [facility] General Surgery [address], [address] [place] [address] Lidia Troncoso MD 06/29/2024 Travel 06/26/2024 Telephone [facility] Cardiothoracic [address], [address] [place] [phone] Ana Luisa Simental RN 06/26/2024 Telephone [facility] General Surgery [address], [address] [place] [phone] Judy Mancuso MD HCN Clinical Concern/Question 06/25/2024 Telephone [facility] General Surgery [address], [address] [place] [address] Katharine Urbano RN 06/21/2024 Travel 06/20/2024 Travel 06/19/2024 Travel 06/18/2024 Travel 06/17/2024 Travel 06/15/2024 Travel 06/14/2024 Travel 06/11/2024 Travel 06/09/2024 Travel 06/08/2024 Travel 06/05/2024 Travel 06/04/2024 Travel 06/01/2024 Travel 05/31/2024 Travel 05/30/2024 Travel 05/29/2024 Results Follow-Up Colorectal Surgery [address] [place] [address] Lidia Troncoso MD 05/29/2024 Travel 05/28/2024 Travel 05/27/2024 Travel 05/26/2024 Travel 05/25/2024 Travel 05/24/2024 Travel 05/23/2024 1:30 PM EDT Anesthesia Event [facility] [address] [place] [address] Compa Cuellar MD Carney Tinsley, Amanda S, MANAGER BAR, DNP 05/23/2024 12:31 PM EDT - 05/23/2024 4:06 PM EDT Surgery [facility] [address] [place] [address] Judy Mancuso MD LAPAROTOMY, EXPLORATORY, possible bowel resection, possible ostomy [42547 (CPT )] 05/23/2024 Travel 05/22/2024 Travel 05/21/2024 Lab Requisition [facility] [address] [place] [address] Tom Dyson MD Encounter for general adult medical examination without abnormal findings 05/21/2024 Travel 05/20/2024 Travel 05/19/2024 Travel 05/18/2024 Travel 05/17/2024 Travel 05/16/2024 Travel 05/15/2024 Travel 05/14/2024 Lab Requisition [facility] [address] [place] [address] Tom Dyson MD Encounter for general adult medical examination without abnormal findings 05/14/2024 Travel 05/13/2024 Travel 05/12/2024 Travel 05/11/2024 Travel 05/10/2024 Travel 05/09/2024 Travel 05/08/2024 Travel 05/07/2024 Travel 05/06/2024 9:14 AM EDT Anesthesia Event [facility] [address] [place] [address] Alfie Khoury MD Bliss, Emily G, MD 05/06/2024 9:00 AM EDT - 05/06/2024 5:45 PM EDT Surgery [facility] [address] [place] [address] Maite Austin MD CABG, 2 OR MORE VESSELS 05/06/2024 Travel 05/06/2024 Orders Only External Location [address] [place] [address] Provider, External 05/03/2024 Travel 05/02/2024 11:59 PM EDT Anesthesia Event [facility] [address] [place] [address] Adelia Robbins MD Latham, Jeremy J, MD 05/02/2024 Travel 05/01/2024 11:01 PM EDT - 06/21/2024 3:41 PM EDT Hospital Encounter [facility] [address] [place] [address] Edson Mcclure DO [place]-Bounds, Tessa, MD Reda, Hassan K, MD S/P colon resection (Primary Dx); CAD, multiple vessel; Cardiac volume overload; S/P CABG x 4; Colon perforation (CMS/HCC); Abdominal fluid collection Discharge Disposition: Home or Self Care 05/01/2024 Orders Only External Location [address] [place] [address] Jd Bentley MD 05/01/2024 Orders Only External Location [address] [place] [address] Jd Bentley MD 05/01/2024 Travel 04/30/2024 Orders Only External Location [address] [place] [address] Provider, External from Last 3 Months Social History Tobacco Use Types Packs/Day Years [...] money to buy more. Never true 05/03/19 Within the past 12 months, t he [...] any time in the past 12 m [facility], were you homeless or living in a long term (including now)? No 05/02/2024 AUDIT-C Answer Date [...] Recorded In the past 12 months has [employer], gas, oil, or water [employer] threatened to shut off services in your home? Yes 05/02/2024 PHQ-2A Answer Date Recorded Depression Risk 1 07/18/2024 Comments Unknown Sex and Gender Information Value Date Recorded Sex Assigned at Not on file Legal Sex Female 8:00 PM EDT Gender Identity Not on file Sexual Orientation Not on file Last Filed Vital Signs Vital Sign Reading Time Taken Comments Blood Pressure 132/82 07/18/2024 11:04 AM EDT Pulse 110 07/18/2024 11:04 AM EDT Temperature 36.6 C (97.8 F) 06/29/2024 2:36 PM EDT Respiratory Rate 18 06/21/2024 11:35 AM EDT Oxygen Saturation 97% 07/18/2024 11:04 AM EDT Inhaled Oxygen Concentration - - Weight 52.7 kg (116 lb 1.2 oz) 07/18/2024 11:04 AM EDT Height 152.4 cm (5') 07/18/2024 11:04 AM EDT Body Mass Index 22.67 07/18/2024 11:04 AM EDT Plan of Treatment Upcoming Encounters Date Type Department Care Team (Late st Contact Info) Description 07/31/2024 9:00 AM EDT [facility] Visit [facility] General Surgery [address], [address] [place] [address] Lidia Troncoso MD [address] [facility] [address] [place] [address] Health Maintenance Due Date Last Done Comments [facility]-HIV Screening 1969 [facility]-Hepatitis C Screening 1969 [facility]-/Child/Adol SDOH Screenings 1969 [facility]-Hepatitis A Vaccines (1 of 2 - Risk 2-dose series) 1988 [facility]-Hepatitis B Vaccines (1 of 3 - 19+ 3-dose series) 1988 [facility]-Pap Smear 1990 [facility]-Cervical Cancer Screening 11/03/1999 [facility]-HPV/Cotest 11/03/1999 [facility]-Pneumococcal Vaccine: 50 + Years (2 of 2 - PPSV23) 09/19/2014 07/25/2014 CT Colonography 2014 Colonoscopy 2014 FIT-DNA 2014 FIT 2014 FOBT 2014 Sigmoidoscopy 2014 [facility]-Colorectal Cancer Screening 2014 [facility]-Breast Cancer Screening 11/03/2019 [facility]-Zoster Vaccines (1 of 2) 11/03/2019 [id number] Vaccine (1 - 2023- season) 2023 [facility]-Influenza Vaccine (Seaso n Ended) 2024 12/09/2019, 11/06/2018, 01/13/2007 [facility]- SDOH Screenings 2024 [facility]-Adult SDOH Screenings 2024 05/02/2024 [facility]-Depression Screening 07/18/2025 025, 06/29/2024, 06/29/2024 [facility]-DTaP,Tdap,and Td Vaccine s (2 - Td or Tdap) 01/17/2033 01/17/2023 HPV Vaccines Aged Out No longer eligi ble based on patient's age to complete this topic [facility]-HIB Vaccines Aged Out No longer e ligible based on patient's age to complete this topic [facility]-IPV Vaccines Aged Out No longer e ligible based on patient's age to complete this topic [facility]-Rotavirus Vaccines Aged Out No lo nger eligible based on patient's age to complete this topic Goals Goal Patient Goal Type Associated Problems Recent Progress Patient-Stated? Author Patient will verbalize understanding of orthotic wear , care and precautions to protect surgical repair for additional 4 weeks. Occupational Therapy No Jd Sabillon Patient will demonstrate correct performance of HEP to increase IP motion within 1 therapy visit. Occupational Therapy No Jd Sabillon Medical Devices Implanted Type Area Type Caster Device Identifier Shelf Expiration Date Model / Serial / Lot Pledget Ptfe Hudson 4.8mm X 6mm - [id number] Implanted:05/06 by Maite Austin MD at [facility] (Quantity not on file) [id number] / / Procedures Procedure Name Priority Date/Time Associated Diagnosis Comments ECG ADULT Routine 07/18/2024 11:22 AM EDT CAD, multiple vessel CBC W/O DIFFERENTIAL Routine 07/18/2024 10:14 AM EDT CAD, multiple vessel BASIC METABOLIC PANEL, PLASMA Routine 07/18/2024 10:14 AM EDT CAD, multiple vessel XR CHEST 2 VIEWS Routine 07/18/2024 9:58 AM EDT CAD, multiple vessel XR ABDOMEN 1 VIEW Routine 06/21/2024 4:3 6 AM EDT XR CHEST 1 VIEW Routine 06/21/2024 4:36 AM EDT MAGNESIUM, PLASMA Routine 06/21/2024 2:5 9 AM EDT COMPREHENSIVE METABOLIC PANEL, PLASMA Routine 06/21/2024 2:59 AM EDT CBC W/O DIFFERENTIAL Routine 06/21/2024 2:59 AM EDT XR ABDOMEN 1 VIEW Routine 06/20/2024 5:3 0 AM EDT N-TERMINAL PROBNP, PLASMA Routine 06/20/2024 4:45 AM EDT COMPREHENSIVE METABOLIC PANEL, PLASMA Routine 06/20/2024 4:45 AM EDT MAGNESIUM, PLASMA Routine 06/20/2024 4:4 5 AM EDT CBC W/O DIFFERENTIAL Routine 06/20/2024 4:45 AM EDT N-TERMINAL PROBNP, PLASMA Add-On 06/19/2024 5:13 AM EDT MAGNESIUM, PLASMA Routine 06/19/2024 5:1 3 AM EDT COMPREHENSIVE METABOLIC PANEL, PLASMA Routine 06/19/2024 5:13 AM EDT CBC W/O DIFFERENTIAL Routine 06/19/2024 5:13 AM EDT XR ABDOMEN 1 VIEW Routine 06/19/2024 5:0 8 AM EDT XR ABDOMEN 1 VIEW Routine 06/18/2024 4:4 3 AM EDT XR CHEST 1 VIEW Routine 06/18/2024 4:43 AM EDT MAGNESIUM, PLASMA Routine 06/18/2024 2:3 2 AM EDT COMPREHENSIVE METABOLIC PANEL, PLASMA Routine 06/18/2024 2:32 AM EDT CBC W/O DIFFERENTIAL Routine 06/18/2024 2:32 AM EDT POCT GLUCOSE [...] 1 VIEW Routine 06/17/2024 5:15 AM EDT MAGNESIUM, PLASMA Routine 06/17/2024 3:5 3 AM EDT COMPREHENSIVE METABOLIC PANEL, PLASMA Routine 06/17/2024 3:53 AM EDT CBC W/O DIFFERENTIAL Routine 06/17/2024 3:53 AM EDT SEND JOCELYNE MESSAGE Routine 06/16/2024 8: 21 PM EDT URINALYSIS MICROSCOPIC FOR UA REFLEX Routine 06/16/2024 8:21 PM EDT URINE FRANCIS PANEL Routine 06/16/2024 8:21 PM EDT URINALYSIS WITH REFLEX MICROSCOPIC Routine 06/16/2024 8:21 PM EDT URINALYSIS WITH REFLEX MICROSCOPIC AND CULTURE Routine 06/16/2024 8:21 PM EDT URINE CULTURE Routine 06/16/2024 8:21 PM EDT MAGNESIUM, PLASMA Routine 06/16/2024 4:0 7 AM EDT COMPREHENSIVE METABOLIC PANEL, PLASMA Routine 06/16/2024 4:07 AM EDT CBC W/O DIFFERENTIAL Routine 06/16/2024 4:07 AM EDT XR HIP RIGHT 2 OR 3 VIEWS Routine 06/15/2024 9:47 AM EDT XR CHEST 1 VIEW Routine 06/15/2024 9:47 AM EDT PREALBUMIN, PLASMA Add-On 06/15/2024 4: 49 AM EDT MAGNESIUM, PLASMA Routine 06/15/2024 4:4 9 AM EDT COMPREHENSIVE METABOLIC PANEL, PLASMA Routine 06/15/2024 4:49 AM EDT CBC W/O DIFFERENTIAL Routine 06/15/2024 4:[address] HEAD WO IV CONTRAST Routine 8:28 PM EDT BLOOD GAS PANEL, VENOUS Routine 06/14/2024 12:58 AM EDT MAGNESIUM, PLASMA Routine 06/14/2024 12:58 AM EDT CBC W/O DIFFERENTIAL Routine 06/14/2024 12:58 AM EDT COMPREHENSIVE METABOLIC [...] WBC DIFFERENTIAL Add-On 06/11/2024 4:32 AM EDT PROCALCITONIN, PLASMA Add-On 06/11/2024 4:32 AM EDT EXTRA TUBE LAVENDER TOP Routine 06/11/2024 4:32 AM EDT EXTRA TUBE LIGHT GREEN TOP Routine 06/11/2024 4:32 AM EDT EXTRA TUBES Routine 06/11/2024 4:32 AM EDT POCT GLUCOSE METER UNSOLICITED RESULTS Routine 06/10/2024 5:56 AM EDT POCT GLUCOSE METER UNSOLICITED RESULTS Routine 06/10/2024 5:09 AM EDT COMPREHENSIVE METABOLIC PANEL, PLASMA Routine 06/10/2024 4:28 AM EDT MAGNESIUM, PLASMA Routine 06/10/2024 4:2 8 AM EDT CBC W/O DIFFERENTIAL Routine 06/10/2024 4:28 AM EDT POCT GLUCOSE METER UNSOLICITED RESULTS Routine 06/09/2024 5:22 PM EDT POCT GLUCOSE METER UNSOLICITED RESULTS Routine 06/09/2024 12:19 PM EDT XR CHEST 1 VIEW Routine 06/09/2024 6:54 AM EDT POCT GLUCOSE METER UNSOLICITED RESULTS Routine 06/09/2024 6:33 AM EDT MAGNESIUM, PLASMA Routine 06/09/2024 1:2 7 AM EDT BASIC METABOLIC PANEL, PLASMA Routine 06/09/2024 1:27 AM EDT CBC W/O DIFFERENTIAL Routine 06/09/2024 1:27 AM EDT POCT GLUCOSE METER UNSOLICITED RESULTS Routine 06/08/2024 11:28 PM EDT POCT GLUCOSE METER UNSOLICITED RESULTS Routine 06/08/2024 12:14 PM EDT MAGNESIUM, PLASMA Routine 06/08/2024 5:4 4 AM EDT BASIC METABOLIC PANEL, PLASMA Routine 06/08/2024 5:44 AM EDT CBC W/O DIFFERENTIAL Routine 06/08/2024 5:44 AM EDT XR ABDOMEN 1 VIEW Routine 06/08/2024 5:3 1 AM EDT POCT GLUCOSE METER UNSOLICITED RESULTS Routine 06/07/2024 5:13 PM EDT POCT GLUCOSE METER UNSOLICITED RESULTS Routine 06/07/2024 2:55 PM EDT MAGNESIUM, PLASMA Routine 06/07/2024 6:2 2 AM EDT BASIC METABOLIC PANEL, PLASMA Routine 06/07/2024 6:22 AM EDT CBC WITH AUTO DIFFERENTIAL Routine 06/07/2024 6:22 AM EDT OXYGEN THERAPY Routine 06/06/2024 8:00 PM EDT POCT GLUCOSE METER UNSOLICITED RESULTS Routine 06/06/2024 6:25 PM EDT POCT GLUCOSE METER UNSOLICITED RESULTS Routine 06/06/2024 11:20 AM EDT OXYGEN THERAPY Routine 06/06/2024 8:00 AM EDT POCT GLUCOSE METER UNSOLICITED RESULTS Routine 06/06/2024 5:49 AM EDT N-TERMINAL PROBNP, PLASMA Routine 06/06/2024 4:03 AM EDT MAGNESIUM, PLASMA Routine 06/06/2024 4:0 3 AM EDT BASIC METABOLIC PANEL, PLASMA Routine 06/06/2024 4:03 AM EDT CBC W/O DIFFERENTIAL Routine 06/06/2024 4:03 AM EDT POCT GLUCOSE METER UNSOLICITED RESULTS Routine 06/05/2024 11:52 PM EDT OXYGEN THERAPY Routine 06/05/2024 8:00 PM EDT XR ABDOMEN 1 VIEW Routine 06/05/2024 4:1 2 PM EDT POCT GLUCOSE METER UNSOLICITED RESULTS Routine 06/05/2024 11:59 AM EDT OXYGEN THERAPY Routine 06/05/2024 8:00 AM EDT N-TERMINAL PROBNP, PLASMA Add-On 06/05/2024 6:12 AM EDT MAGNESIUM, PLASMA Routine 06/05/2024 6:1 2 AM EDT BASIC METABOLIC PANEL, PLASMA Routine 06/05/2024 6:12 AM EDT CBC W/O DIFFERENTIAL Routine 06/05/2024 6:12 AM EDT POCT GLUCOSE [...] OXYGEN THERAPY Routine 06/04/2024 8:00 AM EDT MAGNESIUM, PLASMA Routine 06/04/2024 5:5 6 AM EDT BASIC METABOLIC PANEL, PLASMA Routine 06/04/2024 5:56 AM EDT CBC W/O DIFFERENTIAL Routine 06/04/2024 5:56 AM EDT POCT GLUCOSE METER UNSOLICITED RESULTS Routine 06/03/2024 11:08 PM EDT OXYGEN THERAPY Routine 06/03/2024 8:00 PM EDT POCT GLUCOSE METER UNSOLICITED RESULTS Routine 06/03/2024 5:04 PM EDT POCT GLUCOSE METER UNSOLICITED RESULTS Routine 06/03/2024 11:48 AM EDT OXYGEN THERAPY Routine 06/03/2024 8:00 AM EDT POCT GLUCOSE METER UNSOLICITED RESULTS Routine 06/03/2024 7:54 AM EDT PREALBUMIN, PLASMA Routine 06/03/2024 1: 08 AM EDT MAGNESIUM, PLASMA Routine 06/03/2024 1:0 8 AM EDT BASIC METABOLIC PANEL, PLASMA Routine 06/03/2024 1:08 AM EDT CBC W/O DIFFERENTIAL Routine 06/03/2024 1:08 AM EDT OXYGEN THERAPY Routine 06/02/2024 8:00 PM EDT POCT GLUCOSE METER UNSOLICITED RESULTS Routine 06/02/2024 5:54 PM EDT POCT GLUCOSE METER UNSOLICITED RESULTS Routine 06/02/2024 12:39 PM EDT OXYGEN THERAPY Routine 06/02/2024 8:00 AM EDT BASIC METABOLIC PANEL, PLASMA Routine 06/02/2024 7:08 AM EDT RENAL FUNCTION PANEL, PLASMA Routine 06/02/2024 1:02 AM EDT MAGNESIUM, PLASMA Routine 06/02/2024 1:0 2 AM EDT CBC WITH AUTO DIFFERENTIAL Routine 06/02/2024 1:02 AM EDT POCT GLUCOSE METER UNSOLICITED RESULTS Routine 06/01/2024 11:06 PM EDT OXYGEN THERAPY Routine 06/01/2024 8:[address] ABDOMEN PELVIS W IV CONTRAST STAT 06/01/2024 4:16 PM EDT POCT GLUCOSE METER UNSOLICITED RESULTS Routine 06/01/2024 11:48 AM EDT PROCALCITONIN, PLASMA Routine 06/01/2024 8:42 AM EDT LACTATE, VENOUS Routine 06/01/2024 8:42 AM EDT OXYGEN THERAPY Routine 06/01/2024 8:00 AM EDT POCT GLUCOSE METER UNSOLICITED RESULTS Routine 06/01/2024 6:42 AM EDT RENAL FUNCTION PANEL, PLASMA Routine 06/01/2024 1:20 AM EDT MAGNESIUM, PLASMA Routine 06/01/2024 1:2 0 AM EDT CBC WITH AUTO DIFFERENTIAL Routine 06/01/2024 1:20 AM EDT POCT GLUCOSE [...] PROBNP, PLASMA Routine 05/31/2024 2:50 AM EDT RENAL FUNCTION PANEL, PLASMA Routine 05/31/2024 2:50 AM EDT MAGNESIUM, PLASMA Routine 05/31/2024 2:5 0 AM EDT CBC WITH AUTO DIFFERENTIAL Routine 05/31/2024 2:50 AM EDT OXYGEN THERAPY Routine 05/30/2024 8:00 PM EDT [place] NEGATIVE PRESSURE WOUND THERAPY DME >50 SQ CM Routine 05/30/2024 3:08 PM EDT Colon perforation (CMS/HCC) OXYGEN THERAPY Routine 05/30/2024 8:00 AM EDT N-TERMINAL PROBNP, PLASMA Add-On 05/30/2024 5:13 AM EDT RENAL FUNCTION PANEL, PLASMA Routine 05/30/2024 5:13 AM EDT MAGNESIUM, PLASMA Routine 05/30/2024 5:1 3 AM EDT CBC WITH AUTO DIFFERENTIAL Routine 05/30/2024 5:13 AM EDT XR CHEST 1 VIEW Routine 05/30/2024 3:11 AM EDT PEP THERAPY Routine 05/30/2024 12:00 AM EDT PEP THERAPY Routine 05/29/2024 8:00 PM EDT OXYGEN THERAPY Routine 05/29/2024 8:00 PM [...] DIFFERENTIAL Routine 05/29/2024 5 :35 AM EDT RENAL FUNCTION PANEL, PLASMA Routine 05/29/2024 5:35 AM EDT MAGNESIUM, PLASMA Routine 05/29/2024 5:3 5 AM EDT CBC WITH AUTO DIFFERENTIAL Routine 05/29/2024 5:35 AM EDT XR CHEST 1 VIEW Routine 05/29/2024 2:20 AM EDT OXYGEN THERAPY Routine 05/28/2024 8:00 PM EDT NJ NEGATIVE PRESSURE WOUND THERAPY DME >50 SQ CM Routine 05/28/2024 6:10 PM EDT Colon perforation (CMS/HCC) [place] CRITICAL CARE, ADDL 30 MIN Routine 05/28/2024 11:39 AM EDT CAD, multiple vessel S/P CABG x 4 OXYGEN THERAPY Routine 05/28/2024 8:00 AM EDT PEP THERAPY Routine 05/28/2024 6:00 AM EDT XR CHEST 1 VIEW Routine 05/28/2024 2:04 AM EDT MORPHOLOGY Routine 05/28/2024 12:47 AM EDT MANUAL DIFFERENTIAL Routine 05/28/2024 12:47 AM EDT RENAL FUNCTION PANEL, PLASMA Routine 05/28/2024 12:47 AM EDT MAGNESIUM, PLASMA Routine 05/28/2024 12:47 AM EDT CBC WITH AUTO DIFFERENTIAL Routine 05/28/2024 12:47 AM EDT PEP THERAPY Routine 05/27/2024 10:00 PM EDT XR ABDOMEN 1 VIEW STAT 05/27/2024 9:4 5 PM EDT OXYGEN THERAPY Routine 05/27/2024 8:00 PM EDT POCT GLUCOSE METER UNSOLICITED RESULTS Routine 05/27/2024 6:52 PM EDT PEP THERAPY Routine 05/27/2024 6:00 PM EDT PEP THERAPY Routine 05/27/2024 2:00 PM EDT [facility], E/M 30-74 MINUTES Routine 05/27/2024 11:12 AM EDT Colon perforation ([facility]) PEP THERAPY Routine 05/27/2024 10:00 AM EDT OXYGEN THERAPY Routine 05/27/2024 8:00 AM EDT PEP THERAPY Routine 05/27/2024 6:00 AM EDT MORPHOLOGY Routine 05/27/2024 4:54 AM EDT MANUAL DIFFERENTIAL Routine 05/27/2024 4 :54 AM EDT RENAL FUNCTION PANEL, PLASMA Routine 05/27/2024 4:54 AM EDT MAGNESIUM, PLASMA Routine 05/27/2024 4:5 4 AM EDT CBC WITH AUTO DIFFERENTIAL Routine 05/27/2024 4:54 AM EDT XR CHEST 1 VIEW Routine 05/27/2024 2:37 AM EDT PEP THERAPY Routine 05/26/2024 10:00 PM EDT OXYGEN THERAPY Routine 05/26/2024 8:00 PM EDT POCT GLUCOSE METER UNSOLICITED RESULTS Routine 05/26/2024 6:18 PM EDT PEP THERAPY Routine 05/26/2024 6:00 PM EDT XR CHEST 1 VIEW Routine 05/26/2024 4:30 PM EDT TRANSFUSE RED BLOOD CELLS Routine 05/26/2024 4:16 PM EDT [facility], ADDL 30 MIN Routine 05/26/2024 [...] DIFFERENTIAL Routine 05/26/2024 3 :27 AM EDT RENAL FUNCTION PANEL, PLASMA Routine 05/26/2024 3:27 AM EDT MAGNESIUM, PLASMA Routine 05/26/2024 3:2 7 AM EDT CBC WITH AUTO DIFFERENTIAL Routine 05/26/2024 3:27 AM EDT XR CHEST [...] DIFFERENTIAL Routine 05/25/2024 2 :45 AM EDT RENAL FUNCTION PANEL, PLASMA Routine 05/25/2024 2:45 AM EDT MAGNESIUM, PLASMA Routine 05/25/2024 2:4 5 AM EDT CBC WITH AUTO DIFFERENTIAL Routine 05/25/2024 2:45 AM EDT PEP THERAPY Routine 05/24/2024 10:00 PM EDT OXYGEN THERAPY Routine 05/24/2024 8:00 PM EDT PEP THERAPY Routine 05/24/2024 6:00 PM EDT PEP THERAPY Routine 05/24/2024 2:00 PM EDT [place] [facility], E/M 30-74 MINUTES Routine 05/24/2024 11:04 AM EDT S/P CABG x 4 MORPHOLOGY Routine 05/24/2024 10:18 AM EDT MANUAL DIFFERENTIAL Routine 05/24/2024 10:18 AM EDT BASIC METABOLIC PANEL, PLASMA Routine 05/24/2024 10:18 AM EDT MAGNESIUM, PLASMA Routine 05/24/2024 10:18 AM EDT CBC WITH AUTO DIFFERENTIAL Routine 05/24/2024 10:18 AM EDT PEP THERAPY [...] DIFFERENTIAL Routine 05/23/2024 7 :39 PM EDT COMPREHENSIVE METABOLIC PANEL, PLASMA Routine 05/23/2024 7:39 PM EDT CBC WITH AUTO DIFFERENTIAL Routine 05/23/2024 7:39 PM EDT RENAL FUNCTION PANEL, PLASMA Timed 05/23/2024 7:39 PM EDT MAGNESIUM, PLASMA Timed 05/23/2024 7:3 9 PM EDT PEP THERAPY Routine 05/23/2024 6:00 PM EDT SURGICAL PATHOLOGY EXAM Routine 05/23/2024 4:09 PM EDT Colon perforation (CMS/HCC) TRANSFUSE RED BLOOD CELLS Routine 05/23/2024 3:45 PM EDT ANESTHESIA ARTERIAL LINE PLACEMENT Routine 05/23/2024 2:40 PM EDT ANESTHESIA PERIPHERAL IV PLACEMENT Routine 05/23/2024 2:39 PM EDT BLOOD GAS PANEL, ARTERIAL STAT 05/23/2024 2:14 PM EDT PREPARE RBC Routine 05/23/2024 2:04 PM EDT PEP THERAPY Routine 05/23/2024 2:00 PM EDT PB ANESTHESIA PLACEHOLDER Routine 05/23/2024 1:43 PM EDT NJ AN ELECTIVE ENDOTRACHEAL AIRWAY Routine 05/23/2024 1:43 PM EDT [place] PART REMOVAL COLON W ANASTOMOSIS 05/23/2024 1:16 PM EDT Colon perforation (CMS/HCC) [place] EXPLORATORY OF ABDOMEN 05/23/2024 1:16 PM EDT Colon perforation (CMS/HCC) RENAL FUNCTION PANEL, PLASMA Timed 05/23/2024 1:00 PM EDT MAGNESIUM, PLASMA Timed 05/23/2024 1:0 0 PM EDT PROTHROMBIN TIME(PT) / INR Routine 05/23/2024 12:41 PM EDT IONIZED CALCIUM, WHOLE BLOOD Timed 05/23/2024 11:40 AM EDT BLOOD CULTURE (AEROBIC/ANAEROBIC SET) Routine 05/23/2024 10:20 AM EDT PEP THERAPY Routine 05/23/2024 10:00 AM EDT OXYGEN THERAPY Routine 05/23/2024 8:00 AM EDT HEMOGLOBIN AND HEMATOCRIT, BLOOD Routine 05/23/2024 6:20 AM EDT PEP THERAPY Routine 05/23/2024 6:00 AM EDT HEMOGLOBIN AND HEMATOCRIT, BLOOD Routine 05/23/2024 5:40 AM EDT RENAL FUNCTION PANEL, PLASMA Timed 05/23/2024 5:40 AM EDT MAGNESIUM, PLASMA Timed 05/23/2024 5:4 0 AM EDT IONIZED CALCIUM, WHOLE BLOOD Timed 05/23/2024 5:40 AM EDT XR CHEST 1 VIEW Routine 05/23/2024 2:[address] ABDOMEN PELVIS W IV CONTRAST Routine 05/23/2024 1:56 AM EDT MORPHOLOGY Routine 05/23/2024 1:15 AM EDT MANUAL DIFFERENTIAL Routine 05/23/2024 1 :15 AM EDT RENAL FUNCTION PANEL, PLASMA Timed 05/23/2024 1:15 AM EDT MAGNESIUM, PLASMA Timed 05/23/2024 1:1 5 AM EDT IONIZED CALCIUM, WHOLE BLOOD Timed 05/23/2024 1:15 AM EDT COMPREHENSIVE METABOLIC PANEL, PLASMA Routine 05/23/2024 1:15 AM EDT CBC WITH AUTO DIFFERENTIAL Routine 05/23/2024 1:15 AM EDT ECG ADULT STAT 05/23/2024 12:57 AM EDT PEP THERAPY Routine 05/22/2024 10:00 PM EDT OXYGEN THERAPY Routine 05/22/2024 8:00 PM EDT RENAL FUNCTION PANEL, PLASMA Timed 05/22/2024 6:50 PM EDT MAGNESIUM, PLASMA Timed 05/22/2024 6:5 0 PM EDT IONIZED CALCIUM, WHOLE BLOOD Timed 05/22/2024 6:50 PM EDT PEP THERAPY Routine 05/22/2024 6:[address] ABDOMEN PELVIS WO IV CONTRAST Routine 05/22/2024 5:41 PM EDT PEP THERAPY Routine 05/22/2024 2:00 PM EDT RENAL FUNCTION PANEL, PLASMA Timed 05/22/2024 11:32 AM EDT MAGNESIUM, PLASMA Timed 05/22/2024 11:32 AM EDT IONIZED CALCIUM, WHOLE BLOOD Timed 05/22/2024 11:32 AM EDT PEP THERAPY Routine 05/22/2024 10:00 AM EDT OXYGEN THERAPY Routine 05/22/2024 8:00 AM EDT TYPE AND SCREEN Routine 05/22/2024 6:18 AM EDT MORPHOLOGY STAT 05/22/2024 6:13 AM EDT MANUAL DIFFERENTIAL STAT 05/22/2024 6 :13 AM EDT COMPREHENSIVE METABOLIC PANEL, PLASMA STAT 05/22/2024 6:13 AM EDT CBC WITH AUTO DIFFERENTIAL STAT 05/22/2024 6:13 AM EDT IONIZED CALCIUM, WHOLE BLOOD Routine 05/22/2024 6:13 AM EDT PEP THERAPY Routine 05/22/2024 6:00 AM EDT MORPHOLOGY Routine 05/22/2024 5:18 AM EDT MANUAL DIFFERENTIAL Routine 05/22/2024 5 :18 AM EDT IONIZED CALCIUM, WHOLE BLOOD Timed 05/22/2024 5:18 AM EDT CBC WITH AUTO DIFFERENTIAL Routine 05/22/2024 5:18 AM EDT XR CHEST 1 VIEW Routine 05/22/2024 3:44 AM EDT RENAL FUNCTION PANEL, PLASMA Timed 05/22/2024 12:01 AM EDT MAGNESIUM, PLASMA Timed 05/22/2024 12:01 AM EDT IONIZED CALCIUM, WHOLE BLOOD Timed 05/22/2024 12:01 AM EDT PEP THERAPY Routine 05/21/2024 10:00 PM EDT OXYGEN THERAPY Routine 05/21/2024 8:00 PM EDT PEP THERAPY Routine 05/21/2024 6:00 PM EDT RENAL FUNCTION PANEL, PLASMA Timed 05/21/2024 6:00 PM EDT MAGNESIUM, PLASMA Timed 05/21/2024 6:0 0 PM EDT IONIZED CALCIUM, WHOLE BLOOD Timed 05/21/2024 6:00 PM EDT PEP THERAPY Routine 05/21/2024 2:00 PM EDT RENAL FUNCTION PANEL, PLASMA Timed 05/21/2024 12:09 PM EDT MAGNESIUM, PLASMA Timed 05/21/2024 12:09 PM EDT IONIZED CALCIUM, WHOLE BLOOD Timed 05/21/2024 12:09 PM EDT [place] [facility], E/M 30-74 MINUTES Routine 05/21/2024 11:41 AM EDT S/P CABG x 4 MULTI DRUG RESISTANCE TEST Routine 05/21/2024 11:00 AM EDT Encounter for general adult medical examination without abnormal findings PEP THERAPY Routine 05/21/2024 10:00 AM EDT [...] MANUAL DIFFERENTIAL Routine 05/20/2024 11:48 PM EDT MAGNESIUM, PLASMA Timed 05/20/2024 11:48 PM EDT RENAL FUNCTION PANEL, PLASMA Timed 05/20/2024 11:48 PM EDT CBC WITH AUTO DIFFERENTIAL Routine 05/20/2024 11:48 PM EDT COMPREHENSIVE METABOLIC PANEL, [...] PEP THERAPY Routine 05/20/2024 2:00 PM EDT [place] [facility] C[facility], E/M 30-74 MINUTES Routine 05/20/2024 [...] PANEL, ARTERIAL Routine 05/20/2024 2:16 AM EDT PHOSPHORUS, PLASMA Add-On 05/20/2024 2: 15 AM EDT LIPASE, PLASMA Routine 05/20/2024 2:15 AM EDT CBC WITH AUTO DIFFERENTIAL Routine 05/20/2024 2:15 AM EDT MAGNESIUM, PLASMA Routine 05/20/2024 2:1 5 AM EDT COMPREHENSIVE METABOLIC PANEL, PLASMA [...] PEP THERAPY Routine 05/19/2024 6:00 PM EDT [place] [facility], E/M 30-74 MINUTES Routine 05/19/2024 [...] VIEW Routine 05/19/2024 4:4 3 AM EDT [place] [facility], ADDL 30 MIN Routine 05/19/2024 2:30 AM EDT S/P CABG x 4 MAGNESIUM, PLASMA Routine 05/19/2024 2:0 2 AM EDT COMPREHENSIVE METABOLIC PANEL, PLASMA Routine 05/19/2024 2:02 AM EDT CBC WITH AUTO DIFFERENTIAL Routine 05/19/2024 2:02 AM EDT POCT GLUCOSE [...] UNSOLICITED RESULTS Routine 05/18/2024 5:55 PM EDT [place] [facility], E/M 30-74 MINUTES Routine 05/18/2024 [...] PEP THERAPY Routine 05/18/2024 6:00 AM EDT MAGNESIUM, PLASMA Add-On 05/18/2024 4:0 0 AM EDT PHOSPHORUS, PLASMA Add-On 05/18/2024 4: 00 AM EDT HEPATIC FUNCTION PANEL Routine 4:00 AM EDT GAMMA GLUTAMYLTRANSFERASE, PLASMA Routine 05/18/2024 4:00 AM EDT AMYLASE, PLASMA Routine 05/18/2024 4:00 AM EDT LIPASE, PLASMA Routine 05/18/2024 4:00 AM EDT BLOOD GAS PANEL, ARTERIAL Routine 05/18/2024 4:00 AM EDT POCT GLUCOSE METER UNSOLICITED RESULTS Routine 05/18/2024 3:59 AM EDT XR CHEST 1 VIEW Routine 05/18/2024 2:[address] HEAD WO IV CONTRAST STAT 2:[address] ABDOMEN PELVIS W IV CONTRAST STAT 05/18/2024 2:[address] CHEST W IV CONTRAST STAT 2:19 AM EDT MAGNESIUM, PLASMA Routine 05/18/2024 12:20 AM EDT COMPREHENSIVE METABOLIC PANEL, PLASMA Routine 05/18/2024 12:20 AM EDT CBC WITH AUTO DIFFERENTIAL Routine 05/18/2024 12:20 AM EDT POCT GLUCOSE METER UNSOLICITED RESULTS Routine 05/18/2024 12:19 AM EDT METHICILLIN RESISTANT STAPHYLOCOCCUS AUREUS (MRSA) BY PCR Routine 05/17/2024 10:58 PM EDT PEP THERAPY Routine 05/17/2024 10:00 PM EDT OXYGEN THERAPY Routine 05/17/2024 8:00 PM EDT POCT GLUCOSE METER UNSOLICITED RESULTS Routine 05/17/2024 7:24 PM EDT CBC WITH AUTO DIFFERENTIAL Routine 05/17/2024 6:13 PM EDT BETA GLUCAN SERUM (SO) Routine 6:13 PM EDT AFB BLOOD CULTURE Routine 05/17/2024 6:1 3 PM EDT FUNGAL BLOOD CULTURE Routine 05/17/2024 6:13 PM EDT ISOLATOR BLOOD CULTURE Routine 6:13 PM EDT PEP THERAPY Routine 05/17/2024 6:00 PM EDT [place] [facility] C[facility], E/M 30-74 MINUTES Routine 05/17/2024 4:40 PM EDT S/P CABG x 4 BLOOD GAS PANEL, ARTERIAL STAT 05/17/2024 3:14 PM EDT PROCALCITONIN, PLASMA STAT Add-on 05/17/2024 3:08 PM EDT PHOSPHORUS, PLASMA Routine 05/17/2024 3: 08 PM EDT BASIC METABOLIC PANEL, PLASMA Routine 05/17/2024 3:08 PM EDT TEG GLOBAL HEMOSTASIS WITH HEPARINASE Routine 05/17/2024 3:08 PM EDT ANTI XA LEVEL UNFRACTIONATED HEPARIN Routine 05/17/2024 3:08 PM EDT PROTHROMBIN TIME(PT) / INR Routine 05/17/2024 3:08 PM EDT APTT Routine 05/17/2024 3:08 PM EDT CBC W/O DIFFERENTIAL Routine 05/17/2024 3:08 PM EDT MAGNESIUM, PLASMA Routine 05/17/2024 3:0 8 PM EDT INFLUENZA A,B AND RESPIRATORY SYNCYTIAL VIRUS (RSV) BY PCR Routine 05/17/2024 3:08 PM EDT URINALYSIS WITH REFLEX MICROSCOPIC Routine 05/17/2024 3:07 PM EDT URINE CULTURE Routine 05/17/2024 3:07 PM EDT PEP THERAPY Routine 05/17/2024 2:00 PM EDT LACTATE, VENOUS Routine 05/17/2024 11:16 AM EDT BLOOD CULTURE (AEROBIC/ANAEROBIC SET) Routine 05/17/2024 11:16 AM EDT POCT GLUCOSE METER UNSOLICITED RESULTS Routine 05/17/2024 10:59 AM EDT TRANSFUSE RED BLOOD CELLS Routine 05/17/2024 10:55 AM EDT CBC W/O DIFFERENTIAL Routine 05/17/2024 10:29 AM EDT WBC DIFFERENTIAL Add-On 05/17/2024 10:29 AM EDT EXTRA TUBE LAVENDER TOP Routine 05/17/2024 10:29 AM EDT EXTRA TUBES Routine 05/17/2024 10:29 AM EDT LIPASE, PLASMA Add-On 05/17/2024 10:23 AM EDT COMPREHENSIVE METABOLIC PANEL, PLASMA Routine 05/17/2024 10:23 AM EDT C-REACTIVE PROTEIN, PLASMA Routine 05/17/2024 10:23 AM EDT MAGNESIUM, PLASMA Routine 05/17/2024 10:23 AM EDT BASIC [...] UNSOLICITED RESULTS Routine 05/16/2024 5:28 AM EDT MAGNESIUM, PLASMA Routine 05/16/2024 3:2 0 AM EDT COMPREHENSIVE METABOLIC PANEL, PLASMA Routine 05/16/2024 3:20 AM EDT CBC W/O DIFFERENTIAL Routine 05/16/2024 3:20 AM EDT XR ABDOMEN [...] VIEW Routine 05/15/2024 2:5 6 AM EDT COMPREHENSIVE METABOLIC PANEL, PLASMA Routine 05/15/2024 1:13 AM EDT PHOSPHORUS, PLASMA Routine 05/15/2024 1: 13 AM EDT MAGNESIUM, PLASMA Routine 05/15/2024 1:1 3 AM EDT CBC W/O DIFFERENTIAL Routine 05/15/2024 1:13 AM EDT WBC DIFFERENTIAL STAT 05/15/2024 1:13 AM EDT PEP THERAPY Routine 05/14/2024 10:00 PM EDT OXYGEN THERAPY Routine 05/14/2024 8:00 PM EDT POCT GLUCOSE METER UNSOLICITED RESULTS Routine 05/14/2024 6:04 PM EDT PEP THERAPY Routine 05/14/2024 6:00 PM EDT PEP THERAPY Routine 05/14/2024 2:00 PM EDT TRANSFUSE RED BLOOD CELLS Routine 05/14/2024 1:45 PM EDT POCT GLUCOSE METER UNSOLICITED RESULTS Routine 05/14/2024 12:10 PM EDT TYPE AND SCREEN Routine 05/14/2024 12:10 PM EDT FERRITIN, SERUM Routine 05/14/2024 12:10 PM EDT IRON & TOTAL IRON BINDING CAPACITY, PLASMA (INCLUDES TRANSFERRIN) Routine 05/14/2024 12:10 PM EDT PREPARE RBC Routine 05/14/2024 12:02 PM EDT PEP THERAPY Routine 05/14/2024 10:00 AM EDT XR ABDOMEN 1 VIEW Routine 05/14/2024 9:5 0 AM EDT XR CHEST 1 VIEW Routine 05/14/2024 9:50 AM EDT MULTI DRUG RESISTANCE TEST Routine 05/14/2024 8:24 AM EDT Encounter for general adult medical examination without abnormal findings OXYGEN THERAPY Routine 05/14/2024 8:00 AM EDT PEP THERAPY Routine 05/14/2024 6:00 AM EDT PHOSPHORUS, PLASMA Routine 05/14/2024 3: 35 AM EDT BASIC METABOLIC PANEL, PLASMA Routine 05/14/2024 3:35 AM EDT CBC W/O DIFFERENTIAL Routine 05/14/2024 3:35 AM EDT MAGNESIUM, PLASMA Routine 05/14/2024 3:3 5 AM EDT PEP THERAPY Routine 05/13/2024 10:00 [...] OXYGEN THERAPY Routine 05/13/2024 8:00 AM EDT HEPATIC FUNCTION PANEL Add-On 5:54 AM EDT PHOSPHORUS, PLASMA Routine 05/13/2024 5: 54 AM EDT XR CHEST 1 VIEW Routine 05/13/2024 2:43 AM EDT XR ABDOMEN 1 VIEW Routine 05/13/2024 2:4 3 AM EDT PROCALCITONIN, PLASMA Routine 05/13/2024 12:43 AM EDT CBC W/O DIFFERENTIAL Routine 05/13/2024 12:43 AM EDT RENAL FUNCTION PANEL, PLASMA Routine 05/13/2024 12:43 AM EDT MAGNESIUM, PLASMA Routine 05/13/2024 12:43 AM EDT PEP [...] PROCALCITONIN, PLASMA Add-On 05/12/2024 12:34 AM EDT LIPASE, PLASMA Add-On 05/12/2024 12:34 AM EDT BASIC METABOLIC PANEL, PLASMA Routine 05/12/2024 12:34 AM EDT CBC W/O DIFFERENTIAL Routine 05/12/2024 12:34 AM EDT PHOSPHORUS, PLASMA Routine 05/12/2024 12:34 AM EDT MAGNESIUM, PLASMA Routine 05/12/2024 12:34 AM EDT POCT [...] PEP THERAPY Routine 05/11/2024 6:00 AM EDT PHOSPHORUS, PLASMA Routine 05/11/2024 2: 38 AM EDT BASIC METABOLIC PANEL, PLASMA Routine 05/11/2024 2:38 AM EDT CBC W/O DIFFERENTIAL Routine 05/11/2024 2:38 AM EDT BLOOD GAS PANEL, VENOUS Routine 05/11/2024 2:38 AM EDT MAGNESIUM, PLASMA Routine 05/11/2024 2:3 8 AM EDT XR ABDOMEN 1 VIEW Routine [...] PEP THERAPY Routine 05/10/2024 6:00 AM EDT PHOSPHORUS, PLASMA Routine 05/10/2024 5: 41 AM EDT BLOOD GAS PANEL, VENOUS Routine 05/10/2024 5:41 AM EDT MAGNESIUM, PLASMA Routine 05/10/2024 5:4 1 AM EDT HEPATIC FUNCTION PANEL Routine 5:41 AM EDT BASIC METABOLIC PANEL, PLASMA Routine 05/10/2024 5:41 AM EDT CBC W/O DIFFERENTIAL Routine 05/10/2024 5:41 AM EDT POCT GLUCOSE [...] HYDROXYBUTYRIC ACID Add-On 05/09/2024 11:30 AM EDT PHOSPHORUS, PLASMA Routine 05/09/2024 11:30 AM EDT BASIC METABOLIC PANEL, PLASMA Routine 05/09/2024 11:30 AM EDT MAGNESIUM, PLASMA Routine 05/09/2024 11:30 AM EDT PREALBUMIN, PLASMA Routine 05/09/2024 11:30 AM EDT HEPATIC FUNCTION PANEL Routine 11:30 AM EDT [place] [facility], ADDL 30 MIN Routine 05/09/2024 [...] PREPARE RBC Routine 05/09/2024 1:51 AM EDT ALANINE AMINOTRANSFERASE, PLASMA Add-On 05/09/2024 12:52 AM EDT ASPARTATE AMINOTRANSFERASE, PLASMA Add-On 05/09/2024 12:52 AM EDT BASIC METABOLIC PANEL, PLASMA Routine 05/09/2024 12:52 AM EDT CBC W/O DIFFERENTIAL Routine 05/09/2024 12:52 AM EDT POCT GLUCOSE [...] PEP THERAPY Routine 05/08/2024 2:00 PM EDT [place] [facility], ADDL 30 MIN Routine 05/08/2024 [...] UNSOLICITED RESULTS Routine 05/07/2024 1:50 PM EDT [place] [facility], ADDL 30 MIN Routine 05/07/2024 10:11 AM EDT Cardiac volume overload PEP THERAPY Routine 05/07/2024 10:00 AM EDT BLOOD GAS PANEL WITH OXIMETRY, MIXED VENOUS Pending Discharge 05/07/2024 8:08 AM EDT POTASSIUM, PLASMA Pending Discharge 05/07/2024 8:08 AM EDT HEMATOCRIT, BLOOD Pending Discharge 05/07/2024 8:08 AM EDT HEMOGLOBIN Pending Discharge 05/07/2024 8:08 AM EDT BLOOD [...] VENOUS Pending Discharge 05/07/2024 12:46 AM EDT BASIC METABOLIC PANEL, PLASMA Pending Discharge 05/07/2024 12:46 AM EDT CBC W/O DIFFERENTIAL Pending Discharge 05/07/2024 12:46 AM EDT BLOOD GAS PANEL, ARTERIAL Pending Discharge 05/07/2024 12:45 AM EDT [place] [facility], E/M 30-74 MINUTES Routine 05/06/2024 [...] / INR STAT 05/06/2024 8:42 PM EDT PHOSPHORUS, PLASMA STAT 05/06/2024 8: 42 PM EDT MAGNESIUM, PLASMA STAT 05/06/2024 8:4 2 PM EDT BASIC METABOLIC PANEL, PLASMA STAT 05/06/2024 8:42 PM EDT CBC W/O DIFFERENTIAL STAT 05/06/2024 8:42 PM EDT PEP THERAPY Routine 05/06/2024 8:40 PM EDT PEP THERAPY Routine 05/06/2024 8:40 PM EDT PEP THERAPY Routine 05/06/2024 8:40 PM EDT PEP THERAPY Routine 05/06/2024 8:40 PM EDT PEP THERAPY Routine 05/06/2024 8:40 PM EDT ECG ADULT STAT 05/06/2024 8:38 PM EDT POCT ARTERIAL BLOOD GAS GEM UNSOLICITED RESULTS Routine 05/06/2024 7:39 PM EDT PB ANESTHESIA NON-TIMED PROCEDURE PLACEHOLDER Routine 05/06/2024 7:29 PM EDT POCT ARTERIAL BLOOD GAS GEM [...] UNSOLICITED RESULTS Routine 05/06/2024 11:25 AM EDT [place] INSERT/PLACE FLOW DIRECT CATH Routine 05/06/2024 10:51 AM EDT ANESTHESIA ULTRASOUND GUIDED Routine 05/06/2024 10:51 AM EDT PB ANESTHESIA NON-TIMED PROCEDURE PLACEHOLDER Routine 05/06/2024 10:51 AM EDT NJ AN CENTRAL LINE SINGLE LUMEN Routine 05/06/2024 10:51 AM EDT PB ANESTHESIA NON-TIMED PROCEDURE PLACEHOLDER Routine 05/06/2024 10:50 AM EDT QPLUS Routine 05/06/2024 10:36 AM EDT PB ANESTHESIA PLACEHOLDER Routine 05/06/2024 9:34 AM EDT [place] AN ELECTIVE ENDOTRACHEAL AIRWAY Routine 05/06/2024 9:34 AM EDT POCT ARTERIAL BLOOD GAS GEM UNSOLICITED RESULTS Routine 05/06/2024 9:31 AM EDT PREPARE RBC Routine 05/06/2024 9:04 AM EDT CABG, 2 OR MORE VESSELS 05/06/2024 8:59 AM EDT CAD, multiple vessel EXTRA TUBE LIGHT GREEN TOP Routine 05/06/2024 12:07 AM EDT EXTRA TUBES Routine 05/06/2024 12:07 AM EDT ANTI XA LEVEL UNFRACTIONATED HEPARIN Timed 05/06/2024 12:07 AM EDT PLATELET P2Y12 RECEPTOR BLOCKADE, VERIFY NOW PRU Routine 05/06/2024 12:07 AM EDT CBC W/O DIFFERENTIAL Routine 05/06/2024 12:07 AM EDT POC ULTRASOUND 05/06/2024 TYPE AND SCREEN Routine 05/05/2024 4:16 PM EDT ANTI XA LEVEL UNFRACTIONATED HEPARIN Timed 05/05/2024 6:19 AM EDT PLATELET P2Y12 RECEPTOR BLOCKADE, VERIFY NOW PRU Routine 05/05/2024 12:32 AM EDT MAGNESIUM, PLASMA Routine 05/05/2024 12:32 AM EDT COMPREHENSIVE METABOLIC PANEL, PLASMA Routine 05/05/2024 12:32 AM EDT CBC W/O DIFFERENTIAL Routine 05/05/2024 12:32 AM EDT ANTI XA LEVEL UNFRACTIONATED HEPARIN Timed 05/05/2024 12:32 AM EDT ANTI XA LEVEL UNFRACTIONATED HEPARIN Timed 05/04/2024 4:05 PM EDT PLATELET P2Y12 RECEPTOR BLOCKADE, VERIFY NOW PRU Routine 05/04/2024 9:36 AM EDT ANTI XA LEVEL UNFRACTIONATED HEPARIN Timed 05/04/2024 9:36 AM EDT POCT GLUCOSE METER UNSOLICITED RESULTS Routine 05/04/2024 5:13 AM EDT ANTI XA LEVEL UNFRACTIONATED HEPARIN Timed 05/04/2024 2:50 AM EDT PLATELET P2Y12 RECEPTOR BLOCKADE, VERIFY NOW PRU Routine 05/04/2024 2:50 AM EDT CBC W/O DIFFERENTIAL [...] IV CONTRAST STAT 05/02/2024 2:11 AM EDT MORPHOLOGY STAT 05/01/2024 11:58 PM EDT MANUAL DIFFERENTIAL STAT 05/01/2024 11:58 PM EDT HEMOGLOBIN A1C Add-On 05/01/2024 11:58 PM EDT LIPID PROFILE, PLASMA Add-On 05/01/2024 11:58 PM EDT EXTRA TUBE GOLD TOP Routine 05/01/2024 11:58 PM EDT EXTRA TUBE LAVENDER TOP Routine 05/01/2024 11:58 PM EDT EXTRA TUBE LIGHT GREEN TOP Routine 05/01/2024 11:58 PM EDT EXTRA TUBES Routine 05/01/2024 11:58 PM EDT TROPONIN T, HIGH SENSITIVITY, 0 HOUR, PLASMA, REFLEX TO 2 HOUR STAT 05/01/2024 11:58 PM EDT ANTI XA LEVEL UNFRACTIONATED HEPARIN Timed 05/01/2024 11:58 PM EDT N-TERMINAL PROBNP, PLASMA STAT 05/01/2024 11:58 PM EDT APTT STAT 05/01/2024 11:58 PM EDT TYPE AND SCREEN Routine 05/01/2024 11:58 PM EDT IONIZED CALCIUM, SERUM STAT 11:58 PM EDT PHOSPHORUS, PLASMA STAT 05/01/2024 11:58 PM EDT MAGNESIUM, PLASMA STAT 05/01/2024 11:58 PM EDT PROTHROMBIN TIME(PT) / INR STAT 05/01/2024 11:58 PM EDT COMPREHENSIVE METABOLIC PANEL, PLASMA STAT 05/01/2024 11:58 PM EDT CBC WITH AUTO DIFFERENTIAL STAT 05/01/2024 11:58 PM EDT PLATELET P2Y12 RECEPTOR BLOCKADE, VERIFY NOW PRU Routine 05/01/2024 11:58 PM EDT FIBRINOGEN,QUANTITATIV E (CLOTTABLE) Routine 05/01/2024 11:58 PM EDT ECG ADULT STAT 05/01/2024 11:25 PM EDT XR CHEST 1 VIEW STAT 05/01/2024 11:18 PM EDT IR OUTSIDE IMAGES 05/01/2024 12:08 PM EDT IR OUTSIDE IMAGES 05/01/2024 12:08 PM EDT XR OUTSIDE IMAGES 04/30/2024 11:32 PM EDT from Last 3 Months Results * ECG Adult (07/18/2024 11:22 AM EDT) Only the most recent of7 resultswithin the time period is included. EKG DIAGNOSIS CLASS Abnormal MUSE ECG Ventricular Rate 109 BPM MUSE ECG Atrial Rate 109 BPM MUSE ECG [place] Interval 120 ms MUSE ECG QRSD Interval 70 ms MUSE ECG QT Interval 394 ms MUSE ECG QTC Interval 530 ms MUSE ECG P [place] 77 degrees MUSE ECG R [place] 79 degrees MUSE ECG T Wave [place] 100 degrees MUSE ECG Diagnosis Sinus tachycardia MUSE ECG Diagnosis Nonspecific ST and T wave abnormality MUSE ECG Diagnosis MUSE ECG Diagnosis MUSE ECG Diagnosis MUSE ECG Diagnosis Confirmed by Yahaira Gomez ([id number]) on 07/18/2024 9:29:04 PM MUSE ECG 07/18/2024 11:2 2 AM EDT 07/18/2024 9:29 PM EDT us Maite Austin MD ECG ORDERABLES Final Result MUSE ECG * (ABNORMAL) CBC W/O Differential (07/18/2024 10:14 AM EDT) Only the most recent of36 resultswithin the time period is included. Pathologist [facility] WBC Count 13.01(H) 3.70 - 10.30 10*3/uL LAB HEMATOLOGY METHOD 07/18/2024 11:08 AM EDT [facility] RBC Count 3.97 3.90 - 5.20 10*6/uL LAB HEMATOLOGY METHOD 07/18/2024 11:08 AM EDT [facility] HGB 11.5 11.2 - 15.7 g/dL LAB HEMATOLOGY METHOD 07/18/2024 11:08 AM EDT [facility] HCT 35.5 34.0 - 45.0 % LAB HEMATOLOGY METHOD 07/18/2024 11:08 AM EDT [facility] Platelet Count 582(H) 155 - 369 10*3/uL LAB HEMATOLOGY METHOD 07/18/2024 11:08 AM EDT [facility] MCV 89 79 - 98 fL LAB HEMATOLOGY METHOD 07/18/2024 11:08 AM EDT [facility] MCH 29.0 26.0 - 32.0 pg LAB HEMATOLOGY METHOD 07/18/2024 11:08 AM EDT [facility] MCHC 32.4 30.7 - 35.5 g/dL LAB HEMATOLOGY METHOD 07/18/2024 11:08 AM EDT [facility] RDW 14.9(H) 11.5 - 14.5 % LAB HEMATOLOGY METHOD 07/18/2024 11:08 AM EDT [facility] MPV 9.1 8.8 - 12.5 fL LAB HEMATOLOGY METHOD 07/18/2024 11:08 AM EDT [facility] nRBC 0.0 <=0.0 per 100 WBCs LAB HEMATOLOGY METHOD 07/18/2024 11:08 AM EDT [facility] Blood Venous blood specimen / Unknown Venipuncture / Unknown 07/18/2024 10:14 AM EDT 07/18/2024 10:14 AM EDT us Maite Austin MD LAB BLOOD ORDERABLES Final Resu lt [facility] [address] [place] [address] * (ABNORMAL) Basic Metabolic Panel, Plasma (07/18/2024 10:14 AM EDT) Only the most recent of24 resultswithin the time period is included. Glucose, Plasma 126(H) 74 - 99 mg/dL 07/18/2024 12:13 PM EDT [facility] BUN, Plasma 5(L) 7 - 21 mg/dL 07/18/2024 12:13 PM EDT [facility] Creatinine, Plasma 0.54(L) 0.60 - 1.10 mg/dL 07/18/2024 12:13 PM EDT [facility] BUN/Creatinine Ratio 9 07/18/2024 12:13 PM EDT [facility] Sodium, Plasma 137 136 - 145 mmol/L 07/18/2024 12:13 PM EDT [facility] Potassium, Plasma 2.5(LL) 3.6 - 4.9 mmol/L 07/18/2024 12:13 PM EDT [facility] Chloride, Plasma 95(L) 97 - 107 mmol/L 07/18/2024 12:13 PM EDT [facility] CO2, Plasma 29 22 - 29 mmol/L 07/18/2024 12:13 PM EDT [facility] Anion Gap 13 6 - 16 mmol/L 07/18/2024 12:13 PM EDT [facility] Total Calcium, Plasma 8.2(L) 8.9 - 10.2 mg/dL 07/18/2024 12:13 PM EDT [facility] eGFRcr 109.6 mL/min/1.7 3m*2 07/18/2024 12:13 PM EDT [facility] Comment:Reported eGFRcr in m L/min/1.73m2 is based the CKD-EPI 2020 equation that does not use a race coefficient. Blood Venous blood specimen / Unknown Venipuncture / Unknown 07/18/2024 10:14 AM EDT 07/18/2024 10:14 AM EDT us Maite Austin MD LAB BLOOD ORDERABLES Final Resu lt [facility] [address] [place] [address] * XR Chest 2 Views (07/18/2024 9:58 AM EDT) Only the most recent of2 resultswithin the time period is included. Anatomical Region Laterality Modality Chest Digital Radiogra [...] Chest 1 View (06/21/2024 4:36 AM EDT) Only the most recent of32 resultswithin the time period is included. Anatomical Region Laterality Modality Chest Digital Radiogra phy Impressions 06/21/2024 7:27 AM EDT Stable exam. CRITICAL RESULT: No. COMMUNICATION: Per this written report. Drafted by Dinah Easton MD on 06/21/2024 7:27 AM Final report signed by Dinah Easton MD on 06/21/2024 7:27 AM Narrative 06/21/2024 7:27 AM EDT CLINICAL INDICATION: evaluate lung augustine TECHNIQUE: XR CHEST 1 VIEW COMPARISON: 06/18/2024 FINDINGS: Stable cardiomediastinal contours. Postoperative mediastinum. Unchanged right perihilar linear scarring. Stable lung aeration. Procedure Note Dinah Easton MD - 06/21/2024 CLINICAL INDICATION: evaluate lung augustine TECHNIQUE: XR CHEST 1 VIEW COMPARISON: 06/18/2024 [...] Final Result * XR Abdomen 1 View (06/21/2024 4:36 AM EDT) Only the most recent of20 resultswithin the time period is included. Anatomical Region Laterality Modality Body Digital Radiogra [...] Banda MD on 06/21/2024 10:22 AM Trinity S Yousif ARASH IMG XR PROCEDURES Final Result * (ABNORMAL) Magnesium (06/21/2024 2:59 AM EDT) Only the most recent of63 resultswithin the time period is included. Magnesium, Plasma 1.7(L) 1.9 - 2.4 mg/dL 06/21/2024 3:52 AM EDT [facility] Blood Venous blood specimen / Unknown Venipuncture / Unknown 06/21/2024 2:59 AM EDT 06/21/2024 3:23 AM EDT us Trinity Yousif [employer] LAB BLOOD ORDERABLES Final Res ult [facility] [address] [place] [address] * (ABNORMAL) Comprehensive metabolic panel (06/21/2024 2:59 AM EDT) Only the most recent of23 resultswithin the time period is included. Pathologist [facility] Glucose, Plasma 94 74 - 99 mg/dL 06/21/2024 3:52 AM EDT [facility] BUN, Plasma 4(L) 7 - 21 mg/dL 06/21/2024 3:52 AM EDT [facility] Creatinine, Plasma 0.63 0.60 - 1.10 mg/dL 06/21/2024 3:52 AM EDT [facility] BUN/Creatinine Ratio 6 06/21/2024 3:52 AM EDT [facility] Sodium, Plasma 131(L) 136 - 145 mmol/L 06/21/2024 3:52 AM EDT [facility] Potassium, Plasma 3.9 3.6 - 4.9 mmol/L 06/21/2024 3:52 AM EDT [facility] Chloride, Plasma 98 97 - 107 mmol/L 06/21/2024 3:52 AM EDT [facility] CO2, Plasma 25 22 - 29 mmol/L 06/21/2024 3:52 AM EDT [facility] Anion Gap 8 6 - 16 mmol/L 06/21/2024 3:52 AM EDT [facility] Total Calcium, Plasma 8.1(L) 8.9 - 10.2 mg/dL 06/21/2024 3:52 AM EDT [facility] Total Protein 6.7 6.3 - 7.9 g/dL 06/21/2024 3:52 AM EDT [facility] Albumin, Plasma 2.5(L) 3.5 - 5.2 g/dL 06/21/2024 3:52 AM EDT [facility] AST, Plasma 31 10 - 35 U/L 06/21/2024 3:52 AM EDT [facility] ALT, Plasma 54(H) 10 - 35 U/L 06/21/2024 3:52 AM EDT [facility] Alkaline Phosphatase, Plasma 155(H) 35 - 104 U/L 06/21/2024 3:52 AM EDT [facility] Total Bilirubin, Plasma 0.2 0.2 - 1.1 mg/dL 06/21/2024 3:52 AM EDT [facility] eGFRcr 105.6 mL/min/1.7 3m*2 06/21/2024 3:52 AM EDT [facility] Comment:Reported eGFRcr in m L/min/1.73m2 is based the CKD-EPI 2020 equation that does not use a race coefficient. Blood Venous blood specimen / Unknown Venipuncture / Unknown 06/21/2024 2:59 AM EDT 06/21/2024 3:23 AM EDT us Trinity Yousif MANAGER BAR LAB BLOOD ORDERABLES Final Res ult [facility] [address] [place] [address] * N-Terminal Probnp, Plasma (06/20/2024 4:45 AM EDT) Only the most recent of7 resultswithin the time period is included. N-Terminal, PROBNP, Plasma 652 0 - 899 pg/mL 06/20/2024 6:04 AM EDT [facility] Blood Venous blood specimen / Unknown Venipuncture / Unknown 06/20/2024 4:45 AM EDT 06/20/2024 5:24 AM EDT us Dulce Alamo MANAGER BAR LAB BLOOD ORDERABLES Final R esult [facility] [address] [place] [address] * (ABNORMAL) POCT glucose meter (06/17/2024 8:09 PM EDT) Only the most recent of115 resultswithin the time period is included. [facility] POCT Glucose 145(H) 74 - 99 mg/dL [...] Comment 06/17/2024 8:11 PM EDT [facility] Flight Engineer Helicopter ID Ian Vargasunuh 025 8:11 PM EDT [facility] Device ID [id number] 06/17/2024 8:11 PM EDT [facility] Specimen Type POC Capillary 06/17/2024 8:11 PM EDT [facility] Blood Capillary blood specimen / Unknown 06/17/2024 8:09 PM EDT 06/17/2024 8:11 PM EDT us Maite Austin MD LAB POINT OF CARE TE ST DOCKED DEVICE UNSOLICITED RESULTS Final Result Performing Organization Address City/[facility] Co de Phone Number [facility] [address] [place] [address] * SEND JOCELYNE MESSAGE (06/16/2024 8:21 PM EDT) Urine Urine specimen obtained by clean catch procedure / Unknown Non-blood Collection / Unknown 06/16/2024 8:21 PM EDT 06/16/2024 8:26 PM EDT us Trinity Yousif APRN LAB URINE ORDERABLES Final Res ult [facility] [address] [place] [address] * Urine Francis Panel (06/16/2024 8:21 PM EDT) [facility] Extra Sent for Culture 06/16/2024 10:02 PM EDT [facility] Urine Urine specimen obtained by clean catch procedure / Unknown Non-blood Collection / Unknown 06/16/2024 8:21 PM EDT 06/16/2024 8:26 PM EDT Trinity S Yousif MANAGER BAR LAB URINE ORDERABLES Final Res ult Performing Organization Address [facility] Co de Phone Number [facility] [address] [place] [address] * Urinalysis Microscopic Examination (06/16/2024 8:21 PM EDT) Urine Urine specimen obtained by clean catch procedure / Unknown Non-blood Collection / Unknown 06/16/2024 8:21 PM EDT 06/16/2024 8:26 PM EDT Trinity S Yousif MANAGER BAR LAB URINE ORDERABLES Final Res ult Performing Organization Address [facility] de Phone Number [facility] [address] [place] [address] * (ABNORMAL) Urinalysis with reflex microscopic (Culture NOT Included) (06/16/2024 8:21 PM EDT) Only the most recent of2 resultswithin the time period is included. Color, Urine Yellow LAB URINALYSIS - AUTOMATED METHOD 06/16/2024 8:55 PM EDT [facility] Clarity, Urine Clear LAB URINALYSIS - AUTOMATED METHOD 06/16/2024 8:55 PM EDT [facility] Spec [place], Urine 1.013 1.005 - 1.030 LAB URINALYSIS - AUTOMATED METHOD 06/16/2024 8:55 PM EDT [facility] pH, Urine 6.0 5.0 - 8.0 LAB URINALYSIS - AUTOMATED METHOD 06/16/2024 8:55 PM EDT [facility] Protein, Urine Negative Negative mg/dL LAB URINALYSIS - AUTOMATED METHOD 06/16/2024 8:55 PM EDT [facility] Glucose, Urine Negative Negative mg/dL LAB URINALYSIS - AUTOMATED METHOD 06/16/2024 8:55 PM EDT [facility] Ketones, Urine Negative Negative mg/dL LAB URINALYSIS - AUTOMATED METHOD 06/16/2024 8:55 PM EDT [facility] Blood, Urine Negative Negative LAB URINALYSIS - AUTOMATED METHOD 06/16/2024 8:55 PM EDT [facility] Bilirubin, Urine Negative Negative LAB URINALYSIS - AUTOMATED METHOD 06/16/2024 8:55 PM EDT [facility] Urobilinogen, Urine 0.2 0.2 to 1.0 mg/dL LAB URINALYSIS - AUTOMATED METHOD 06/16/2024 8:55 PM EDT [facility] Leukocytes, Urine Large(A) Negative LAB URINALYSIS - AUTOMATED METHOD 06/16/2024 8:55 PM EDT [facility] Nitrite, Urine Negative Negative LAB URINALYSIS - AUTOMATED METHOD 06/16/2024 8:55 PM EDT [facility] RBC, Urine 2 0 to 3 /HPF LAB URINALYSIS - AUTOMATED METHOD 06/16/2024 8:55 PM EDT [facility] WBC, Urine >50(A) 0 to 5 /HPF LAB URINALYSIS - AUTOMATED METHOD 06/16/2024 8:55 PM EDT [facility] Squamous Epithelial Cells 11 - 20(A) 0 to 5 /HPF LAB URINALYSIS - AUTOMATED METHOD 06/16/2024 8:55 PM EDT [facility] Hyaline Casts 0 - 2 0 to 5 /LPF LAB URINALYSIS - AUTOMATED METHOD 06/16/2024 8:55 PM EDT [facility] Bacteria, Urine Present Negative LAB URINALYSIS - AUTOMATED METHOD 06/16/2024 8:55 PM EDT [facility] Renal Tubular Cells Present Absent 06/16/2024 8:55 PM EDT [facility] Transitional Epithelial Cells Present Absent 06/16/2024 8:55 PM EDT [facility] Yeast (Budding and/or Pseudohyphae) Present(A) Absent 06/16/2024 8:55 PM EDT [facility] Urine Urine specimen obtained by clean catch procedure / Unknown Non-blood Collection / Unknown 06/16/2024 8:21 PM EDT 06/16/2024 8:26 PM EDT [facility] - 06/16/2024 8:55 PM EDT Performed by manual method Trinity Yousif APRN LAB URINE ORDERABLES Final Res ult Performing Organization Address [facility] Co de Phone Number [address] [address] * Urine Culture (06/16/2024 8:21 PM EDT) Only the most recent of2 resultswithin the time period is included. Culture <10,000 CFU/mL Mixed urogenital, fecal, or skin quincy present. 06/18/2024 10:03 AM EDT [facility] Urine Urine specimen obtained by clean catch procedure / Unknown Non-blood Collection / Unknown 06/16/2024 8:21 PM EDT 06/16/2024 8:26 PM EDT Trinity Yousif APRN LAB MICROBIOLOGY - GENERAL ORD ERABLES Final Result Performing Organization Address [facility] Co de Phone Number [address] [address] * XR Hip Right 2 or 3 [...] on 06/15/2024 10:23 AM us Trinity Yousif APRN IMG XR PROCEDURES Final Result * (ABNORMAL) Prealbumin (06/15/2024 4:49 AM EDT) Only the most recent of3 resultswithin the time period is included. Prealbumin, Plasma 13.3(L) 20.0 - 41.0 mg/dL 06/15/2024 8:27 AM EDT [facility] Blood Venous blood specimen / Unknown Venipuncture / Unknown 06/15/2024 4:49 AM EDT 06/15/2024 5:28 AM EDT us Trinity Yousif APRN LAB BLOOD ORDERABLES Final Res ult [facility] [address] [place] [address] * CT Head wo IV Contrast (06/14/2024 8:28 PM EDT) Only the most recent of2 resultswithin the time period is included. Anatomical Region Laterality Modality Head Computed Tomogra [...] gas panel, venous (06/14/2024 12:58 AM EDT) Only the most recent of4 resultswithin the time period is included. pH, Venous 7.42 7.32 - 7.43 LAB HEMATOLOGY METHOD 06/14/2024 1:14 AM EDT [facility] pCO2, Venous 46 37 - 52 mmHg LAB HEMATOLOGY METHOD 06/14/2024 1:14 AM EDT [facility] pO2, Venous 36 25 - 40 mmHg LAB HEMATOLOGY METHOD 06/14/2024 1:14 AM EDT [facility] SO2, Measured, Venous 66 65 - 80 % LAB HEMATOLOGY METHOD 06/14/2024 1:14 AM EDT [facility] Base Excess, Venous 4.7(H) -2.0 - 3.0 mmol/L LAB HEMATOLOGY METHOD 06/14/2024 1:14 AM EDT [facility] Bicarbonate, Calculated, Venous 30(H) 22 - 26 mmol/L LAB HEMATOLOGY METHOD 06/14/2024 1:14 AM EDT [facility] Hematocrit, Whole Blood 33.3(L) 34.0 - 45.0 % LAB HEMATOLOGY METHOD 06/14/2024 1:14 AM EDT [facility] Sodium, Whole Blood 129(L) 136 - 145 mmol/L LAB HEMATOLOGY METHOD 06/14/2024 1:14 AM EDT [facility] Potassium, Whole Blood 3.6 3.6 - 4.9 mmol/L LAB HEMATOLOGY METHOD 06/14/2024 1:14 AM EDT [facility] Chloride, Whole Blood 93(L) 97 - 107 mmol/L LAB HEMATOLOGY METHOD 06/14/2024 1:14 AM EDT [facility] Glucose, Whole Blood 106(H) 74 - 99 mg/dL LAB HEMATOLOGY METHOD 06/14/2024 1:14 AM EDT [facility] Lactate, Venous, Whole Blood 0.7 0.5 - 2.2 mmol/L LAB HEMATOLOGY METHOD 06/14/2024 1:14 AM EDT [facility] Ionized Calcium, Whole Blood 4.6 4.6 - 5.1 mg/dL LAB HEMATOLOGY METHOD 06/14/2024 1:14 AM EDT [facility] Blood Venous blood specimen / Unknown (Central Line) Existing Catheter / Unknown 06/14/2024 12:58 AM EDT 06/14/2024 1:13 AM EDT us Maite Austin MD LAB BLOOD ORDERABLES Final Resu lt [facility] [address] [place] [address] * (ABNORMAL) CBC and differential (06/12/2024 3:24 AM EDT) Only the most recent of22 resultswithin the time period is included. WBC Count 10.53(H) 3.70 - 10.30 10*3/uL LAB HEMATOLOGY METHOD 06/12/2024 3:43 AM EDT [facility] RBC Count 3.17(L) 3.90 - 5.20 10*6/uL LAB HEMATOLOGY METHOD 06/12/2024 3:43 AM EDT [facility] HGB 9.3(L) 11.2 - 15.7 g/dL LAB HEMATOLOGY METHOD 06/12/2024 3:43 AM EDT [facility] HCT 29.4(L) 34.0 - 45.0 % LAB HEMATOLOGY METHOD 06/12/2024 3:43 AM EDT [facility] Platelet Count 393(H) 155 - 369 10*3/uL LAB HEMATOLOGY METHOD 06/12/2024 3:43 AM EDT [facility] MCV 93 79 - 98 fL LAB HEMATOLOGY METHOD 06/12/2024 3:43 AM EDT [facility] MCH 29.3 26.0 - 32.0 pg LAB HEMATOLOGY METHOD 06/12/2024 3:43 AM EDT [facility] MCHC 31.6 30.7 - 35.5 g/dL LAB HEMATOLOGY METHOD 06/12/2024 3:43 AM EDT [facility] RDW 15.2(H) 11.5 - 14.5 % LAB HEMATOLOGY METHOD 06/12/2024 3:43 AM EDT [facility] MPV 9.1 8.8 - 12.5 fL LAB HEMATOLOGY METHOD 06/12/2024 3:43 AM EDT [facility] nRBC 0.0 <=0.0 per 100 WBCs LAB HEMATOLOGY METHOD 06/12/2024 3:43 AM EDT [facility] Differential Type Automated LAB HEMATOLOGY METHOD 06/12/2024 3:43 AM EDT [facility] Neutrophils % 54 % LAB HEMATOLOGY METHOD 06/12/2024 3:43 AM EDT [facility] Lymphocytes % 28 % LAB HEMATOLOGY METHOD 06/12/2024 3:43 AM EDT [facility] Monocytes % 11 % LAB HEMATOLOGY METHOD 06/12/2024 3:43 AM EDT [facility] Eosinophils % 2 % LAB HEMATOLOGY METHOD 06/12/2024 3:43 AM EDT [facility] Basophils % 1 % LAB HEMATOLOGY METHOD 06/12/2024 3:43 AM EDT [facility] Immature Granulocytes % 4 % LAB HEMATOLOGY METHOD 06/12/2024 3:43 AM EDT [facility] Neutrophils Absolute 5.65 1.60 - 6.10 10*3/uL LAB HEMATOLOGY METHOD 06/12/2024 3:43 AM EDT [facility] Lymphocytes Absolute 2.99 1.20 - 3.90 10*3/uL LAB HEMATOLOGY METHOD 06/12/2024 3:43 AM EDT [facility] Monocytes Absolute 1.11(H) 0.30 - 0.90 10*3/uL LAB HEMATOLOGY METHOD 06/12/2024 3:43 AM EDT [facility] Eosinophils Absolute 0.25 0.00 - 0.50 10*3/uL LAB HEMATOLOGY METHOD 06/12/2024 3:43 AM EDT [facility] Basophils Absolute 0.13(H) 0.00 - 0.10 10*3/uL LAB HEMATOLOGY METHOD 06/12/2024 3:43 AM EDT [facility] Immature Granulocytes Absolute 0.40(H) 0.00 - 0.06 10*3/uL LAB HEMATOLOGY METHOD 06/12/2024 3:43 AM EDT [facility] Blood Blood sample taken from central line / Unknown (Central Line) Existing Catheter / Unknown 06/12/2024 3:24 AM EDT 06/12/2024 3:34 AM EDT Narrative [facility] - 06/12/2024 3:43 AM EDT Therapeutic decision making should be based on absolute values, rather than percentages. Uriah PHILLIP LAB BLOOD ORDERABLES Final Result [facility] [address] [place] [address] * (ABNORMAL) WBC Differential (06/11/2024 4:32 AM EDT) Only the most recent of3 resultswithin the time period is included. Differential Type Automated LAB HEMATOLOGY METHOD 06/11/2024 8:40 AM EDT [facility] Neutrophils % 63 % LAB HEMATOLOGY METHOD 06/11/2024 8:40 AM EDT [facility] Lymphocytes % 23 % LAB HEMATOLOGY METHOD 06/11/2024 8:40 AM EDT [facility] Monocytes % 8 % LAB HEMATOLOGY METHOD 06/11/2024 8:40 AM EDT [facility] Eosinophils % 2 % LAB HEMATOLOGY METHOD 06/11/2024 8:40 AM EDT [facility] Basophils % 1 % LAB HEMATOLOGY METHOD 06/11/2024 8:40 AM EDT [facility] Immature Granulocytes % 3 % LAB HEMATOLOGY METHOD 06/11/2024 8:40 AM EDT [facility] Immature Granulocytes Absolute 0.43(H) 0.00 - 0.06 10*3/uL LAB HEMATOLOGY METHOD 06/11/2024 8:40 AM EDT [facility] Neutrophils Absolute 10.15(H) 1.60 - 6.10 10*3/uL LAB HEMATOLOGY METHOD 06/11/2024 8:40 AM EDT [facility] Lymphocytes Absolute 3.53 1.20 - 3.90 10*3/uL LAB HEMATOLOGY METHOD 06/11/2024 8:40 AM EDT [facility] Monocytes Absolute 1.18(H) 0.30 - 0.90 10*3/uL LAB HEMATOLOGY METHOD 06/11/2024 8:40 AM EDT [facility] Basophils Absolute 0.15(H) 0.00 - 0.10 10*3/uL LAB HEMATOLOGY METHOD 06/11/2024 8:40 AM EDT [facility] Eosinophils Absolute 0.25 0.00 - 0.50 10*3/uL LAB HEMATOLOGY METHOD 06/11/2024 8:40 AM EDT [facility] Blood Venous blood specimen / Unknown 06/11/2024 4:32 AM EDT 06/11/2024 4:32 AM EDT us Uriah PHILLIP LAB BLOOD ORDERABLES Final Result Performing Organization Address City/[facility]/ZIP Co de Phone Number [facility] [address] [place] [address] * Lavender Top (06/11/2024 4:32 AM EDT) Only the most recent of3 resultswithin the time period is included. Extra Hold for add-ons 06/11/2024 7:02 AM EDT [facility] Comment:Auto resulted. Blood Venous blood specimen / Unknown 06/11/2024 4:32 AM EDT 06/11/2024 4:32 AM EDT us Maite Austin MD LAB BLOOD ORDERABLES Final Resu lt Performing Organization Address City/[facility]/ZIP Co de Phone Number [facility] [address] [place] [address] * Light Green Top (06/11/2024 4:32 AM EDT) Only the most recent of3 resultswithin the time period is included. Extra Hold for add-ons 06/11/2024 7:02 AM EDT [facility] Comment:Auto resulted. Blood Venous blood specimen / Unknown 06/11/2024 4:32 AM EDT 06/11/2024 4:32 AM EDT us Maite Austin MD LAB BLOOD ORDERABLES Final Resu lt Performing Organization Address City/[facility]/ZIP Co de Phone Number [facility] [address] [place] [address] * (ABNORMAL) Procalcitonin (06/11/2024 4:32 AM EDT) Only the most recent of5 resultswithin the time period is included. Procalcitonin, Plasma 0.10(H) <0.09 ng/mL 06/11/2024 8:43 AM EDT [facility] Blood Venous blood specimen / Unknown 06/11/2024 4:32 AM EDT 06/11/2024 4:32 AM EDT Narrative [facility] - 06/11/2024 8:43 AM EDT [...] predict 28 day mortality risk. Please consult [email or web address] for more information. Test performed at [facility]. Uriah PHILLIP LAB BLOOD ORDERABLES Final Result Performing Organization Address [facility]/ZIP Co de Phone Number [facility] [address] [place] [address] * (ABNORMAL) Body Fluid Cell Count w/ Diff (06/04/2024 10:17 AM EDT) Color, Body fluid Brown LAB HEMATOLOGY METHOD 06/04/2024 5:36 PM EDT [facility] Appearance, Body fluid Cloudy(A) LAB HEMATOLOGY METHOD 06/04/2024 5:36 PM EDT [facility] Volume, Body fluid 5.0 cc LAB HEMATOLOGY METHOD 06/04/2024 5:36 PM EDT [facility] Fluid Container Specimen received in miscellaneous container LAB HEMATOLOGY METHOD 06/04/2024 5:36 PM EDT [facility] Red Blood Cell Count, Body fluid LAB HEMATOLOGY METHOD 06/04/2024 5:36 PM EDT [facility] Comment:Unable to quantitate due to cell deterioration. Total Nucleated Cell Count, Body fluid LAB HEMATOLOGY METHOD 06/04/2024 5:36 PM EDT [facility] Comment:Unable to quantitate due to cell deterioration. Neutrophils %, Body fluid LAB HEMATOLOGY METHOD 06/04/2024 5:36 PM EDT [facility] Comment:Unable to quantitate due to cell deterioration. Lymphocytes %, Body fluid LAB HEMATOLOGY METHOD 06/04/2024 5:36 PM EDT [facility] Comment:Unable to quantitate due to cell deterioration. Monocytes/Macr ophages %, Body fluid LAB HEMATOLOGY METHOD 06/04/2024 5:36 PM EDT [facility] Comment:Unable to quantitate due to cell deterioration. Eosinophils %, Body fluid LAB HEMATOLOGY METHOD 06/04/2024 5:36 PM EDT [facility] Comment:Unable to quantitate due to cell deterioration. Lining/Mesothe lial Cells %, Body fluid LAB HEMATOLOGY METHOD 06/04/2024 5:36 PM EDT [facility] Comment:Unable to quantitate due to cell deterioration. Neutrophils Absolute (PMN), Body fluid LAB HEMATOLOGY METHOD 06/04/2024 5:36 PM EDT [facility] Comment:Unable to quantitate due to cell deterioration. Lymphocytes Absolute, Body fluid LAB HEMATOLOGY METHOD 06/04/2024 5:36 PM EDT [facility] Comment:Unable to quantitate due to cell deterioration. Monocytes/Macr ophages Absolute, Body fluid LAB HEMATOLOGY METHOD 06/04/2024 5:36 PM EDT [facility] Comment:Unable to quantitate due to cell deterioration. Eosinophils Absolute, Body fluid LAB HEMATOLOGY METHOD 06/04/2024 5:36 PM EDT [facility] Comment:Unable to quantitate due to cell deterioration. Basophils Absolute, Body fluid LAB HEMATOLOGY METHOD 06/04/2024 5:36 PM EDT [facility] Comment:Unable to quantitate due to cell deterioration. Lining/Mesothe lial Cells Absolute, Body fluid LAB HEMATOLOGY METHOD 06/04/2024 5:36 PM EDT [facility] Comment:Unable to quantitate due to cell deterioration. Basophils %, Body fluid LAB HEMATOLOGY METHOD 06/04/2024 5:36 PM EDT [facility] Comment:Unable to quantitate due to cell deterioration. Body Fluid Topography unknown / Unknown Non-blood Collection / Unknown 06/04/2024 10:17 AM EDT 06/04/2024 10:51 AM EDT Maite Austin MD LAB BODY FLUIDS AND STOOLS ORDERABLES NO SPECIMEN TYPE/SOURCE Final Result Performing Organization Address City/[facility]/ZIP Co de Phone Number [facility] [address] [place] [address] * AFB Culture, Non Respiratory Source and Acid Fast Stain (06/04/2024 10:17 AM EDT) AFB Culture No Mycobacterial Growth at 6 Weeks 07/17/2024 11:29 AM EDT [facility] Acid Fast Stain No acid fast bacilli seen 07/17/2024 11:29 AM EDT [facility] Body Fluid Topography unknown / Unknown Non-blood Collection / Unknown 06/04/2024 10:17 AM EDT 06/04/2024 10:55 AM EDT us Maite Austin MD LAB MICROBIOLOGY - GENERAL ORDE RABLES Final Result [facility] [address] [place] [address] * (ABNORMAL) Body Fluid Culture and Gram Stain (06/04/2024 10:17 AM EDT) Culture No growth at day 4 2024 7:41 AM EDT [facility] Gram Stain Result No intact cells seen(A) 06/07/2024 7:41 AM EDT [facility] Gram Stain Result No polymorphonuclear leukocytes seen(A) 06/07/2024 7:41 AM EDT [facility] Gram Stain Result No organisms seen(A) 06/07/2024 7:41 AM EDT [facility] Body Fluid Topography unknown / Unknown Non-blood Collection / Unknown 06/04/2024 10:17 AM EDT 06/04/2024 10:55 AM EDT us Maite Austin MD LAB MICROBIOLOGY - [facility] Final Result [facility] [address] [place] [address] * CT Guided Drain Placement Peritoneal or Retroperitoneal (06/04/2024 10:16 AM EDT) Anatomical Region Laterality Modality Computed Tomogra phy Impressions 06/04/2024 12:43 PM EDT Successful percutaneous CT guided drain placement left upper quadrant fluid collection. CRITICAL RESULT: No. COMMUNICATION: Per this written report. Drafted by Christelle Elmore MD on 06/04/2024 12:32 PM Final report signed by Christelle Elmore MD on 06/04/2024 12:43 PM Narrative 06/04/2024 12:43 PM EDT CLINICAL INDICATION: 53-year-old female with postsurgical fluid collection in the left upper quadrant extending into the paracolic gutter presenting for drainage PHYSICIANS: jogger operator: CHRISTELLE ELMORE MD Secondary coat operator insulator: None RAD DOSE: Total DLP 413 mGycm [...] FINDINGS: See body of report Procedure Note Christelle Elmore MD - 06/04/2024 CLINICAL INDICATION: 53-year-old female with postsurgical fluid collection in the left upperquadrant extending into the paracolic gutter presenting for drainage PHYSICIANS: jogger operator: CHRISTELLE ELMORE MD Secondary coat operator insulator: None RAD DOSE: Total DLP 413 mGycm [...] well, [facility] Approximately 10 cc [...] COMMUNICATION: Per this written report. Drafted by Christelle Elmore MD on 06/04/2024 12:32 PM Final report signed by Christelle Elmore MD on 06/04/2024 12:43 PM Lorena Phillips MANAGER BAR IMG CT PROCEDURES Final Resu lt * (ABNORMAL) Renal Function Panel, Plasma (06/02/2024 1:02 AM EDT) Only the most recent of28 resultswithin the time period is included. Glucose, Plasma 507(HH) 74 - 99 mg/dL 06/02/2024 1:47 AM EDT [facility] BUN, Plasma 11 7 - 21 mg/dL 06/02/2024 1:47 AM EDT [facility] Creatinine, Plasma 0.60 0.60 - 1.10 mg/dL 06/02/2024 1:47 AM EDT [facility] BUN/Creatinine Ratio 18 06/02/2024 1:47 AM EDT [facility] Sodium, Plasma 125(L) 136 - 145 mmol/L 06/02/2024 1:47 AM EDT [facility] Potassium, Plasma 4.8 3.6 - 4.9 mmol/L 06/02/2024 1:47 AM EDT [facility] Chloride, Plasma 93(L) 97 - 107 mmol/L 06/02/2024 1:47 AM EDT [facility] CO2, Plasma 20(L) 22 - 29 mmol/L 06/02/2024 1:47 AM EDT [facility] Anion Gap 12 6 - 16 mmol/L 06/02/2024 1:47 AM EDT [facility] Total Calcium, Plasma 7.9(L) 8.9 - 10.2 mg/dL 06/02/2024 1:47 AM EDT [facility] Phosphorus, Plasma 5.8(H) 2.5 - 4.5 mg/dL 06/02/2024 1:47 AM EDT [facility] Albumin, Plasma 2.2(L) 3.5 - 5.2 g/dL 06/02/2024 1:47 AM EDT [facility] eGFRcr 106.8 mL/min/1.7 3m*2 06/02/2024 1:47 AM EDT [facility] Comment:Reported eGFRcr in m L/min/1.73m2 is based the CKD-EPI 2020 equation that does not use a race coefficient. Blood Venous blood specimen / Unknown Venipuncture / Unknown 06/02/2024 1:02 AM EDT 06/02/2024 1:16 AM EDT Lora Llanes MANAGER BAR LAB BLOOD ORDERABLES Final Result [facility] [address] [place] [address] * CT Abdomen Pelvis w IV Contrast (06/01/2024 4:16 PM EDT) Only the most recent of3 resultswithin the time period is included. Anatomical Region Laterality Modality Abdomen, Pelvis Computed [...] on 06/01/2024 5:03 PM us Shola Sheridan APRN IMG CT PROCEDURES Final Resu lt * Lactate, venous (06/01/2024 8:42 AM EDT) Only the most recent of4 resultswithin the time period is included. Lactate, Venous, Whole Blood 0.9 0.5 - 2.2 mmol/L LAB HEMATOLOGY METHOD 06/01/2024 9:01 AM EDT [facility] Blood Venous blood specimen / Unknown Venipuncture / Unknown 06/01/2024 8:42 AM EDT 06/01/2024 8:59 AM EDT Shola Sheridan APRN LAB BLOOD ORDERABLES Final R esult [facility] [address] [place] [address] * [place] NEGATIVE PRESSURE WOUND THERAPY DME >50 SQ [...] IN CLINIC/BEDSIDE ORDERAB LES Final Result * Phosphorus (05/29/2024 7:00 AM EDT) Only the most recent of13 resultswithin the time period is included. [facility] Phosphorus, Plasma 4.1 2.5 - 4.5 mg/dL 05/29/2024 7:43 AM EDT [facility] Blood Venous blood specimen / Unknown Venipuncture / Unknown 05/29/2024 7:00 AM EDT 05/29/2024 7:06 AM EDT Maite Austin MD LAB BLOOD ORDERABLES Final Resu lt [facility] [address] [place] [address] * Morphology (05/29/2024 5:35 AM EDT) Only the most recent of12 resultswithin the time period is included. [facility] Polychromasia Slight LAB HEMATOLOGY METHOD 05/29/2024 8:34 AM EDT [facility] RBC Morphology Slide Reviewed LAB HEMATOLOGY METHOD 05/29/2024 8:34 AM EDT [facility] Platelet Estimate Platelet smear estimate consistent with automated count LAB HEMATOLOGY METHOD 05/29/2024 8:34 AM EDT [facility] Blood Blood sample taken from central line / Unknown Venipuncture / Unknown 05/29/2024 5:35 AM EDT 05/29/2024 5:56 AM EDT Maite Austin MD LAB BLOOD ORDERABLES Final Resu lt [facility] [address] [place] [address] * (ABNORMAL) Manual Differential (05/29/2024 5:35 AM EDT) Only the most recent of12 resultswithin the time period is included. Blasts % 0 % LAB HEMATOLOGY METHOD 05/29/2024 8:34 AM EDT [facility] Promyelocytes % 0 % LAB HEMATOLOGY METHOD 05/29/2024 8:34 AM EDT [facility] Myelocytes % 4 % LAB HEMATOLOGY METHOD 05/29/2024 8:34 AM EDT [facility] Metamyelocytes % 5 % LAB HEMATOLOGY METHOD 05/29/2024 8:34 AM EDT [facility] Neutrophils % 82 % LAB HEMATOLOGY METHOD 05/29/2024 8:34 AM EDT [facility] Lymphocytes % 3 % LAB HEMATOLOGY METHOD 05/29/2024 8:34 AM EDT [facility] Reactive Lymphocytes % 1 % LAB HEMATOLOGY METHOD 05/29/2024 8:34 AM EDT [facility] Monocytes % 3 % LAB HEMATOLOGY METHOD 05/29/2024 8:34 AM EDT [facility] Eosinophils % 2 % LAB HEMATOLOGY METHOD 05/29/2024 8:34 AM EDT [facility] Basophils % 0 % LAB HEMATOLOGY METHOD 05/29/2024 8:34 AM EDT [facility] Blasts Absolute 0.00 10*3/UL LAB HEMATOLOGY METHOD 05/29/2024 8:34 AM EDT [facility] Promyelocytes Absolute 0.00 10*3/uL LAB HEMATOLOGY METHOD 05/29/2024 8:34 AM EDT [facility] Myelocytes Absolute 0.90 10*3/uL LAB HEMATOLOGY METHOD 05/29/2024 8:34 AM EDT [facility] Metamyelocytes Absolute 1.13 10*3/uL LAB HEMATOLOGY METHOD 05/29/2024 8:34 AM EDT [facility] Neutrophils Absolute 18.47(H) 1.60 - 6.10 10*3/uL LAB HEMATOLOGY METHOD 05/29/2024 8:34 AM EDT [facility] Lymphocytes Absolute 0.68(L) 1.20 - 3.90 10*3/uL LAB HEMATOLOGY METHOD 05/29/2024 8:34 AM EDT [facility] Reactive Lymphocytes Absolute 0.23 10*3/uL LAB HEMATOLOGY METHOD 05/29/2024 8:34 AM EDT [facility] Monocytes Absolute 0.68 0.30 - 0.90 10*3/uL LAB HEMATOLOGY METHOD 05/29/2024 8:34 AM EDT [facility] Eosinophils Absolute 0.45 0.00 - 0.50 10*3/uL LAB HEMATOLOGY METHOD 05/29/2024 8:34 AM EDT [facility] Basophils Absolute 0.00 0.00 - 0.10 10*3/uL LAB HEMATOLOGY METHOD 05/29/2024 8:34 AM EDT [facility] Blood Blood sample taken from central line / Unknown Venipuncture / Unknown 05/29/2024 5:35 AM EDT 05/29/2024 5:56 AM EDT us Maite Austin MD LAB BLOOD ORDERABLES Final Resu lt [facility] [address] [place] [address] * [place] NEGATIVE PRESSURE WOUND THERAPY DME >50 SQ [...] IN CLINIC/BEDSIDE ORDERABLES Fi nal Result * [place] CRITICAL CARE, ADDL 30 MIN (05/28/2024 11:39 [...] IN CLINIC/BEDSIDE ORDERABLES Fi nal Result * [place] CRITICAL CARE, E/M 30-74 MINUTES (05/27/2024 11:12 [...] with the findings and plan as documented. Jose Martin Traylor IN CLINIC/BEDSIDE ORDERABLES F inal Result * Transfuse RBC (05/26/2024 6:44 PM EDT) Only the most recent of9 resultswithin the time period is included. Maite Austin MD BLOOD TRANSFUSION ORDERABLES Fi nal Result * [place] CRITICAL CARE, ADDL 30 MIN (05/26/2024 3:17 [...] Type and screen (05/26/2024 3:12 PM EDT) Only the most recent of6 resultswithin the time period is included. ABO/Rh B Positive 05/26/2024 2:21 PM EDT BLOOD BANK Antibody Screen Negative 05/26/2024 2:21 PM EDT [facility]LO[facility] Specimen Expiration 05/29/2024 23:59 05/26/2024 2:21 PM EDT BLO[facility] BANK Blood Venous blood specimen / Unknown Venipuncture / Unknown 05/26/2024 3:12 PM EDT 05/26/2024 3:27 PM EDT Maite Austin MD LAB BLOOD BANK TEST ORDERABLES Final Result Performing Organization Address [facility] Co de Phone Number BLOOD BANK [address] * Prepare Leukocyte Reduced RBC: 1 Units (05/26/2024 2:21 PM EDT) Only the most recent of6 resultswithin the time period is included. Pathologist [facility] Product Code [id number] BLOO D BANK Dispense Status Transfused BLOOD BANK Blood Expiration Date [id number] BLOOD BANK Unit Number [id number] CH B LOOD BANK Product Blood Type 7300 BLOOD BANK Blood Type B+ BLOOD BANK Crossmatch Compatible BLOOD BANK Other Maite Austin MD BLOOD BANK PRODUCT ORDERABLES F inal Result Performing Organization Address [facility] de Phone Number BLOOD BANK [address] * (ABNORMAL) Hemoglobin and Hematocrit, Blood (05/25/2024 8:32 PM EDT) Only the most recent of5 resultswithin the time period is included. [facility] HGB 7.2(L) 11.2 - 15.7 g/dL LAB HEMATOLOGY METHOD 05/25/2024 8:51 PM EDT [facility] HCT 23.1(L) 34.0 - 45.0 % LAB HEMATOLOGY METHOD 05/25/2024 8:51 PM EDT [facility] Blood Arterial blood specimen / Unknown Venipuncture / Unknown 05/25/2024 8:32 PM EDT 05/25/2024 8:45 PM EDT Lora Llanes APRN LAB BLOOD ORDERABLES Final Result Performing Organization Address City/[facility] Co de Phone Number [facility] [address] [place] [address] * [place] CRITICAL CARE, E/M 30-74 MINUTES (05/24/2024 11:04 [...] CLINIC/BEDSIDE ORDERABL ES Final Result * (ABNORMAL) Blood gas panel, arterial (05/23/2024 7:54 PM EDT) Only the most recent of10 resultswithin the time period is included. pH, Arterial 7.29(L) 7.35 - 7.45 LAB HEMATOLOGY METHOD 05/23/2024 8:04 PM EDT [facility] pCO2, Arterial 44 35 - 48 mmHg LAB HEMATOLOGY METHOD 05/23/2024 8:04 PM EDT [facility] pO2, Arterial 182(H) 83 - 108 mmHg LAB HEMATOLOGY METHOD 05/23/2024 8:04 PM EDT [facility] SO2, Measured, Arterial 100(H) 94 - 98 % LAB HEMATOLOGY METHOD 05/23/2024 8:04 PM EDT [facility] Base Excess, Arterial -5.1(L) -2.0 - 3.0 mmol/L LAB HEMATOLOGY METHOD 05/23/2024 8:04 PM EDT [facility] Bicarbonate, Calculated, Arterial 21(L) 22 - 26 mmol/L LAB HEMATOLOGY METHOD 05/23/2024 8:04 PM EDT [facility] Hematocrit, Whole Blood 34.4 34.0 - 45.0 % LAB HEMATOLOGY METHOD 05/23/2024 8:04 PM EDT [facility] Sodium, Whole Blood 133(L) 136 - 145 mmol/L LAB HEMATOLOGY METHOD 05/23/2024 8:04 PM EDT [facility] Potassium, Whole Blood 5.0(H) 3.6 - 4.9 mmol/L LAB HEMATOLOGY METHOD 05/23/2024 8:04 PM EDT [facility] Chloride, Whole Blood 107 97 - 107 mmol/L LAB HEMATOLOGY METHOD 05/23/2024 8:04 PM EDT [facility] Glucose, Whole Blood 266(H) 74 - 99 mg/dL LAB HEMATOLOGY METHOD 05/23/2024 8:04 PM EDT [facility] Ionized Calcium, Whole Blood 4.2(L) 4.6 - 5.1 mg/dL LAB HEMATOLOGY METHOD 05/23/2024 8:04 PM EDT [facility] Lactate, Arterial, Whole Blood 2.0(H) 0.5 - 1.6 mmol/L LAB HEMATOLOGY METHOD 05/23/2024 8:04 PM EDT [facility] Blood Arterial blood specimen / Unknown Arterial Puncture / Unknown 05/23/2024 7:54 PM EDT 05/23/2024 8:02 PM EDT us Maite Austin MD LAB BLOOD ORDERABLES Final Resu lt [facility] [address] [place] [address] * Surgical Pathology Exam (05/23/2024 4:09 PM EDT) Case Report Surgical Pathology Case: [id number] Authorizing Provider: Lidia Troncoso MD Collected: 05/23/2024 1609 Ordering Location: [facility] OPERATING ROOM Received: 05/24/2024 0749 Pathologist: Elvia Morgan MD Specimen: Other (specify site), Left Colon (fresh for permanent) 05/28/2024 11:11 AM EDT [facility] Final Diagnosis LARGE INTESTINE. 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 - INVOLVEMENT OF ONE RESECTION MARGIN. 05/28/2024 11:11 AM EDT [facility] at 1111 EDT Clinical Information Colon perforation (CMS/HCC) [K63.1] s/p 4vCABG on 05/06/24. 05/28/2024 11:11 AM T [facility] Gross Description A. LEFT COLON [...] x 7.8 cm unremarkable mesentery is submitted. Director [employer] sections are submitted as follows: A1: Resection margin A2: Opposite resection margin A3-A4: Area of defect, full-thickness A5: Area of fibrosis and stricturing A6: Area of fibrosis and stricturing A7: Area of fibrosis and stricturing A8: Uninvolved colonic mucosa A9: Junction between involved in uninvolved mucosa A10: Two lymph node candidates, entirely submitted Cold Time: 2h 41m 05/28/2024 11:11 AM [facility] Note: A resident was involved in the service. I attest I examined the relevant preparations for the specimens and confirmed the diagnosis or interpretation. 05/28/2024 11:11 AM [facility] Tissue Topography unknown / Unknown 05/23/2024 4:09 PM EDT 05/24/2024 7:49 AM EDT Comment:Pre-op diagnosis: Colon perforation (CMS/HCC) [K63.1] Lidia Troncoso MD LAB PATHOLOGY ORDERABLES Final Result [facility] [address] [place] [address] * PB ANESTHESIA NON-TIMED PROCEDURE PLACEHOLDER (05/23/2024 [...] tape. Seldinger technique used Staffing Performed: KERRIE POLYMERIZATION OVEN TENDER: Mayda Bhatti CRNA Roslyn Villanueva MD ANESTHESIA ORDERABLES Final Re sult * Peripheral IV (05/23/2024 2:39 PM EDT) Mayda Vizcaino CRNA - 05/23/2024 2:39 PM EDT Mayda Bhatti CRNA 05/23/2024 2:40 PM Peripheral IV Inserted by: Mayda Bhatti CRNA Placement Needle size: 18 G Location: hand Site prep: alcohol Technique: anatomical landmarks Attempts: 1 Result [facility] Roslyn Villanueva MD ANESTHESIA ORDERABLES Final Re sult * [place] AN ELECTIVE ENDOTRACHEAL AIRWAY, PB ANESTHESIA PLACEHOLDER (05/23/2024 1:43 PM EDT) Narrative Mayda Bhatti CRNA - 05/23/2024 1:43 PM EDT Mayda Bhatti CRNA 05/23/2024 2:13 PM Airway Date/Time: 05/23/2024 1:43 PM Reason: elective Airway not difficult General Information and Staff Patient location during procedure: OR POLYMERIZATION OVEN TENDER: Mayda Bhatti CRNA Other anesthesia staff: Db [...] Additional Comments Atraumatic. No change to dentition. Roslyn Villanueva MD ANESTHESIA ORDERABLES Final Re sult * Protime-INR (05/23/2024 12:41 PM EDT) Only the most recent of4 resultswithin the time period is included. Pathologist [facility] Prothrombin Time 13.6 12.0 - 14.3 sec LAB COAGULATION METHOD 05/23/2024 1:34 PM EDT [facility] INR 1.0 0.9 - 1.1 LAB COAGULATION METHOD 05/23/2024 1:34 PM EDT [facility] Blood Venous blood specimen / Unknown Venipuncture / Unknown 05/23/2024 12:41 PM EDT 05/23/2024 1:04 PM EDT Narrative [facility] - 05/23/2024 1:34 PM EDT OPTIMAL INR RANGES FOR PATIENT ON ORAL ANTICOAGULANT THERAPY Prevention of venous thromboembolism INR 2.0 to 3.0 In patients with heart disease: Atrial fibrillation INR 2.0 to 3.0 Valvular heart disease INR 2.0 to 3.0 Tissue heart valves INR 2.0 to 3.0 Mechanical prosthetic valves INR 2.5 to 3.5 Prevention of recurrent [place] INR 2.5 to 3.5 us Maite Austin MD LAB BLOOD ORDERABLES Final Resu lt [facility] [address] [place] [address] * (ABNORMAL) Ionized calcium, whole blood (05/23/2024 11:40 AM EDT) Only the most recent of12 resultswithin the time period is included. Ionized Calcium, Whole Blood 4.3(L) 4.6 - 5.1 mg/dL LAB HEMATOLOGY METHOD 05/23/2024 11:48 AM EDT [facility] Blood Venous blood specimen / Unknown Venipuncture / Unknown 05/23/2024 11:40 AM EDT 05/23/2024 11:47 AM EDT Reyna Obregon APRN LAB BLOOD ORDERABLES Namrata l Result Performing Organization Address City/[facility]/ZIP Co de Phone Number [facility] [address] [place] [address] * Blood Culture (Aerobic/Anaerobet Set) (05/23/2024 10:20 AM EDT) Only the most recent of3 resultswithin the time period is included. [facility] Culture No growth at day 5 ELI 05/28/2024 11:01 AM EDT [facility] Blood Venous blood specimen / Unknown Venipuncture / Unknown 05/23/2024 10:20 AM EDT 05/23/2024 10:28 AM EDT us Maite Austin MD LAB MICROBIOLOGY - GENERAL ORDaCden [facility] Final Result Performing Organization Address [facility] [place] [address] * CT Abdomen Pelvis wo IV Contrast (05/22/2024 5:41 PM EDT) Only the most recent of4 resultswithin the time period is included. Anatomical Region Laterality Modality Abdomen, Pelvis Computed [...] Lopez MD on 05/22/2024 6:08 PM Reyna Obregon MANAGER BAR IMG CT PROCEDURES Final R esult * [place] CRITICAL CARE, E/M 30-74 MINUTES (05/21/2024 11:41 [...] Gastric perf. NPO. TPN Antibiotics for now. Edson Lewis MD IN CLINIC/BEDSIDE ORDERABL ES Final Result * Multi Drug Resistance Test (05/21/2024 11:00 AM EDT) Only the most recent of3 resultswithin the time period is included. Culture No growth at day 1 05/22/2024 8:46 AM EDT [facility] Swab (Nares and Jacey Rectal) 05/21/2024 11:00 AM EDT 05/21/2024 11:55 AM EDT us Tom Dyson MD LAB MICROBIOLOGY - GEN ERAL ORDERABLES Final Result [facility] [address] [place] [address] * [place] CRITICAL CARE, E/M 30-74 MINUTES (05/20/2024 1:19 [...] IN CLINIC/BEDSIDE ORDERABLES Final Result * (ABNORMAL) Lipase (05/20/2024 2:15 AM EDT) Only the most recent of4 resultswithin the time period is included. Lipase, Plasma 84(H) 19 - 63 U/L 05/20/2024 2:51 AM EDT [facility] Blood Venous blood specimen / Unknown Venipuncture / Unknown 05/20/2024 2:15 AM EDT 05/20/2024 2:21 AM EDT us Marybel Suarez APRN LAB BLOOD ORDERABLES Fin al Result [facility] [address] [place] [address] * [place] CRITICAL CARE, E/M 30-74 MINUTES (05/19/2024 2:52 [...] MD IN CLINIC/BEDSIDE ORDERABLES Final Result * Triglycerides (05/19/2024 11:42 AM EDT) Triglycerides, Plasma 76 <150 mg/dL 05/19/2024 1:45 PM EDT [facility] Comment: Triglyceride Reference Range (age >17 years): Desirable: <150 mg/dL Borderline high: 150 to 199 mg/dL High: 200 to 499 mg/dL Very high: >499 mg/dL Increased risk of pancreatitis: >1000 mg/dL Fasting greater than or equal to 12 hours? Unknown 05/19/2024 1:45 PM EDT [facility] Blood Venous blood specimen / Unknown Venipuncture / Unknown 05/19/2024 11:42 AM EDT 05/19/2024 12:00 PM EDT us Maite Austin MD LAB BLOOD ORDERABLES Final Resu lt [facility] [address] [place] [address] * [place] CRITICAL CARE, ADDL 30 MIN (05/19/2024 2:30 [...] Comments: PICC placed Persistently febrile and tachycardic us Edson Mcclure DO IN CLINIC/BEDSIDE ORDERABLES Final Result * PICC DOUBLE LUMEN (SMARTFORM LINK) (05/19/2024 12:50 AM EDT) Narrative Sundeep Holt RN - 05/19/2024 12:50 AM EDT Sundeep Holt RN 05/19/2024 1:26 AM Insert PICC line Performed by: Sundeep Holt RN Authorized by: Maite Austni MD [place] Protocol: Verbal consent obtained?: Yes Written consent obtained?: Yes Risks and benefits: Risks, benefits and alternatives were discussed Consent given by: Patient and power of business attorney (Written Consent obtained by elvislacayden VAT/PICC RN from Patient's family/NOK and verified [...] Left Location (Adult): Basilic vein (Largest vein, dvxyhkhj-wy-hviw ratio 27%) Site selection rationale: RUE PIV and right radial arterial line. Patient position: Supine Catheter Lot #: [id number] Catheter bight maker: [employer] Power PICC Provena Catheter placed: Double lumen [...] placed on end of each lumen hub. [place] limb precaution armband placed on left wrist for PICC precautions while PICC is in place (No sticks/BP's). VAT consult completed. us Maite Austin MD IV THERAPY ORDERABLES Edited Re sult - Final * Comprehensive GI Panel by PCR (05/18/2024 11:47 PM EDT) Campylobacter PCR Result Not Detected Not Detected 05/19/2024 1:41 PM EDT [facility] Plesiomonas shigelloides PCR Result Not Detected Not Detected 05/19/2024 1:41 PM EDT [facility] Salmonella PCR Result Not Detected Not Detected 05/19/2024 1:41 PM EDT [facility] Vibrio species PCR Result Not Detected Not Detected 05/19/2024 1:41 PM EDT [facility] Vibrio cholerae PCR Result Not Detected Not Detected 05/19/2024 1:41 PM EDT [facility] Yersinia enterocolitica PCR Result Not Detected Not Detected 05/19/2024 1:41 PM EDT [facility] Enteroaggregative E. coli (EAEC) PCR Result Not Detected Not Detected 05/19/2024 1:41 PM EDT [facility] Enteropathogenic E. coli (EPEC) PCR Result Not Detected Not Detected 05/19/2024 1:41 PM EDT [facility] Enterotoxigenic E. coli (ETEC) lt/st PCR Result Not Detected Not Detected 05/19/2024 1:41 PM EDT [facility] Shiga-like Toxin-Producing E.coli (STEC) stx1/stx2 PCR Resu Not Detected Not Detected 05/19/2024 1:41 PM EDT [facility] E coli 0157 PCR Result Not Detected Not Detected 05/19/2024 1:41 PM EDT [facility] Shigella/Enteroinvas alexsandra E. coli (EIEC) PCR Result Not Detected Not Detected 05/19/2024 1:41 PM EDT [facility] Cryptosporidium PCR Result Not Detected Not Detected 05/19/2024 1:41 PM EDT [facility] Cyclospora cayetanensis PCR Result Not Detected Not Detected 05/19/2024 1:41 PM EDT [facility] Entamoeba histolytica PCR Result Not Detected Not Detected 05/19/2024 1:41 PM EDT [facility] Giardia duodenalis (aka Giardia lamblia) PCR Result Not Detected Not Detected 05/19/2024 1:41 PM EDT [facility] Adenovirus F 40/41 PCR Result Not Detected Not Detected 05/19/2024 1:41 PM EDT [facility] Astrovirus PCR Result Not Detected Not Detected 05/19/2024 1:41 PM EDT [facility] Norovirus GI/GII PCR Result Not Detected Not Detected 05/19/2024 1:41 PM EDT [facility] Rotavirus A PCR Result Not Detected Not Detected 05/19/2024 1:41 PM EDT [facility] Sapovirus PCR Result Not Detected Not Detected 05/19/2024 1:41 PM EDT [facility] Stool Rectum structure / Unknown Non-blood Collection / Unknown 05/18/2024 11:47 PM EDT 05/19/2024 2:07 AM EDT Narrative [facility] - 05/19/2024 1:41 PM EDT [...] MICROBIOLOGY - GENER AL ORDERABLES Final Result [facility] [address] [place] [address] * Clostridiodes (Clostridium) difficile PCR (05/18/2024 11:47 PM EDT) C difficile PCR toxin B gene DNA Result Not Detected Not Detected 05/19/2024 7:36 AM EDT [facility] Stool Rectum structure / Unknown Non-blood Collection / Unknown 05/18/2024 11:47 PM EDT 05/19/2024 2:07 AM EDT Narrative [facility] - 05/19/2024 7:36 AM EDT [...] MICROBIOLOGY - GENER AL ORDERABLES Final Result [facility] [address] [place] [address] * [place] CRITICAL CARE, E/M 30-74 MINUTES (05/18/2024 2:28 [...] MD IN CLINIC/BEDSIDE ORDERABLES Final Result * [place] Upper GI (05/18/2024 11:25 AM [...] FLUOROSCOPY PROCEDURES Namrata l Result * (ABNORMAL) GGT (05/18/2024 4:00 AM EDT) GGT, Plasma 105(H) 5 - 36 U/L 05/18/2024 5:04 AM EDT [facility] Blood Arterial blood specimen / Unknown Venipuncture / Unknown 05/18/2024 4:00 AM EDT 05/18/2024 4:31 AM EDT Edson Mcclure DO LAB BLOOD ORDERABLES Final R esult [facility] [address] [place] [address] * (ABNORMAL) Amylase, Plasma (05/18/2024 4:00 AM EDT) Amylase 129(H) 27 - 114 U/L 05/18/2024 5:04 AM EDT [facility] Blood Arterial blood specimen / Unknown Venipuncture / Unknown 05/18/2024 4:00 AM EDT 05/18/2024 4:31 AM EDT Edson Mcclure DO LAB BLOOD ORDERABLES Final R esult [facility] [address] [place] [address] * (ABNORMAL) Hepatic function panel (05/18/2024 4:00 AM EDT) Only the most recent of4 resultswithin the time period is included. Conjugated Bilirubin, Plasma 0.6(H) <=0.3 mg/dL 05/18/2024 5:04 AM EDT [facility] Alkaline Phosphatase, Plasma 113(H) 35 - 104 U/L 05/18/2024 5:04 AM EDT [facility] Total Bilirubin, Plasma 1.1 0.2 - 1.1 mg/dL 05/18/2024 5:04 AM EDT [facility] Albumin, Plasma 2.1(L) 3.5 - 5.2 g/dL 05/18/2024 5:04 AM EDT [facility] Total Protein 5.5(L) 6.3 - 7.9 g/dL 05/18/2024 5:04 AM EDT [facility] ALT, Plasma 24 10 - 35 U/L 05/18/2024 5:04 AM EDT [facility] AST, Plasma 53(H) 10 - 35 U/L 05/18/2024 5:04 AM EDT [facility] Blood Arterial blood specimen / Unknown Venipuncture / Unknown 05/18/2024 4:00 AM EDT 05/18/2024 4:31 AM EDT Edson Mcclure DO LAB BLOOD ORDERABLES Final R esult [facility] [address] [place] [address] * CT Chest w IV Contrast (05/18/2024 [...] Total DLP (Dose-Length Product): 1602.32 mGy.cm (accession [id number]), 1602.32 mGy.cm (accession [id number]). Please note: The reported value represents the [...] Total DLP (Dose-Length Product): 1602.32 mGy.cm (accession [id number]),1602.32 mGy.cm (accession [id number]). Please note: The reported valuerepresents the total [...] on 05/18/2024 3:15 AM Marybel Suarez APRN IM CT PROCEDURES Final Result * Methicillin Resistant Staphylococcus aureus (MRSA) by PCR (05/17/2024 10:58 PM EDT) Methicillin Resistant Staphylococcus aureus (MRSA) by PCR Not Detected Not Detected 05/18/2024 12:44 AM EDT [facility] Swab Both anterior nares / Unknown Non-blood Collection / Unknown 05/17/2024 10:58 PM EDT 05/17/2024 11:21 PM EDT Narrative [facility] - 05/18/2024 12:44 AM EDT This test is FDA approved for use with nares swab specimens using the eSwabs. This test is used for clinical purposes. It should not be regarded as investigational or for research. This laboratory is certified under the Clinical Laboratory improvement Amendments of 1988 (CLIA-88 as qualified to perform high complexity clinical laboratory testing. us Marybel Suarez MANAGER BAR LAB MICROBIOLOGY - GENER AL ORDERABLES Final Result Performing Organization Address City/[facility]/ZIP Co de Phone Number [facility] [address] [place] [address] * Fungal Blood Culture (05/17/2024 6:13 PM EDT) Culture No Fungal Growth at 6 Weeks 07/07/2024 11:43 AM EDT [facility] Blood Venous blood specimen / Unknown Venipuncture / Unknown 05/17/2024 6:13 PM EDT 05/17/2024 6:32 PM EDT us Lora Llanes MANAGER BAR LAB MICROBIOLOGY - GENERAL ORDERABLES Final Result Performing Organization Address City/[facility] [place] [address] * Beta Glucan (Fungitel), Serum (05/17/2024 6:13 PM EDT) Beta Glucan (Fungitell) 43 <80 pg/mL 05/19/2024 4:58 PM EDT [facility]IRACOR (GAMALIEL) Comment: Interpretation: The Fungitell assay does not detect certain fungal species such as the genus Cryptococcus (Rica et al. 1991) which produces very low levels of (1-3)-Zero-K-Ikwope. The assay also does not detect the Zygomycetes such as Absidia, Mucor and Rhizopus (Stacey et al. 1994) which are not known to produce (1-3)-Yobx-M-Zlakju. In addition, the yeast phase of Blastomyces dermatitidis produces little (1-3)-Swdc-W-Aeyima and may not be detected by the [...] characteristics for these modifications were determined by [employer]. If sample result is greater than 500 pg/mL, physician may order a titer of the sample. Please contact [employer] if you would like to order a retest of this sample to obtain an actual value. Samples are held for 1 week after initial testing date. Testing Performed at: [facility] [address] [place] [address], [address] [place] [address] Pacs Specialist: Clayton Mata, PhD [place] ([facility]) CLIA # [id number] FLAG Interpretation: A = Abnormal, H = High, L = Low Blood Venous blood specimen / Unknown Venipuncture / Unknown 05/17/2024 6:13 PM EDT 05/17/2024 6:27 PM EDT Narrative KWABENA (GAMALIEL) - 05/19/2024 4:58 PM EDT [facility]Immediate us Lora Llanes APRN LAB BLOOD ORDERABLES Final Result KWABENA GALAVIZ) * AFB Blood Culture (05/17/2024 6:13 PM EDT) AFB Culture No Mycobacterial Growth at 6 Weeks 07/06/2024 5:16 PM EDT [facility] Blood Venous blood specimen / Unknown Venipuncture / Unknown 05/17/2024 6:13 PM EDT 05/17/2024 6:32 PM EDT us Lora Llanes MANAGER BAR LAB MICROBIOLOGY - GENERAL ORDERABLES Final Result [facility] [address] [place] [address] * [place] CRITICAL CARE, E/M 30-74 MINUTES (05/17/2024 4:40 [...] IN CLINIC/BEDSIDE ORDERABLES Final Result * (ABNORMAL) TEG Global Hemostasis with Heparinase (05/17/2024 3:08 PM EDT) R 8.7 4.6 - 9.1 min 05/17/2024 3:56 PM EDT [facility] R, Heparinase 7.2 4.3 - 8.3 min 05/17/2024 3:56 PM EDT [facility] K 2.0 0.8 - 2.1 min 05/17/2024 3:56 PM EDT [facility] Angle 72.5 63.0 - 78.0 degrees 05/17/2024 3:56 PM EDT [facility] MA 72.2(H) 52.0 - 69.0 mm 05/17/2024 3:56 PM EDT [facility] MA, Rapid 74.4(H) 52.0 - 70.0 mm 05/17/2024 3:56 PM EDT [facility] MA, Fibrinogen 48.4(H) 15.0 - 32.0 mm 05/17/2024 3:56 PM EDT [facility] FLEV 883.2(H) 278.0 - 581.0 mg/dl 05/17/2024 3:56 PM EDT [facility] Blood Venous blood specimen / Unknown Venipuncture / Unknown 05/17/2024 3:08 PM EDT 05/17/2024 3:26 PM EDT us Maite Austin MD LAB BLOOD ORDERABLES Final Resu lt Performing Organization Address [facility] [place] [address] * Influenza A,B & Respiratory Syncytial Virus by PCR (05/17/2024 3:08 PM EDT) Influenza A Virus PCR Result Not Detected Not Detected 05/18/2024 7:52 AM EDT [facility] Influenza B Virus PCR Result Not Detected Not Detected 05/18/2024 7:52 AM EDT [facility] Respiratory Syncytial Virus (RSV) PCR Result Not Detected Not Detected 05/18/2024 7:52 AM EDT [facility] Swab Nasopharyngeal structure / Unknown Non-blood Collection / Unknown 05/17/2024 3:08 PM EDT 05/17/2024 3:25 PM EDT us Dulce Alamo APRN LAB MICROBIOLOGY - GENERAL O RDERABLES Final Result Performing Organization Address [facility] [place] [address] * (ABNORMAL) APTT (05/17/2024 3:08 PM EDT) Only the most recent of3 resultswithin the time period is included. aPTT 41(H) 25 - 35 sec LAB COAGULATION METHOD 05/17/2024 4:06 PM EDT [facility] Blood Venous blood specimen / Unknown Venipuncture / Unknown 05/17/2024 3:08 PM EDT 05/17/2024 3:37 PM EDT Maite Austin MD LAB BLOOD ORDERABLES Final Resu lt Performing Organization Address [facility] de Phone Number [facility] [address] [place] [address] * Anti Xa Level Unfractionated Heparin (05/17/2024 3:08 PM EDT) Only the most recent of13 resultswithin the time period is included. Anti Xa Level Unfractionated Heparin <0.11 <1.00 IU/mL LAB COAGULATION METHOD 05/17/2024 4:06 PM EDT [facility] Blood Venous blood specimen / Unknown Venipuncture / Unknown 05/17/2024 3:08 PM EDT 05/17/2024 3:37 PM EDT Narrative [facility] - 05/17/2024 4:06 PM EDT Therapeutic Range: UFH Full Dose and ACS/[place] protocols*: 0.30 - 0.70 IU/mL UFH Low Dose protocol*: 0.25 - 0.50 IU/mL UFH prophylaxis: Not established Maite Austin MD LAB BLOOD ORDERABLES Final Resu lt Performing Organization Address [facility] de Phone Number [facility] [address] [place] [address] * (ABNORMAL) C-reactive protein (05/17/2024 10:23 AM EDT) CRP, Plasma 225.3(H) <=8.0 mg/L 05/17/2024 2:08 PM EDT [facility] Blood Venous blood specimen / Unknown Venipuncture / Unknown 05/17/2024 10:23 AM EDT 05/17/2024 10:28 AM EDT Narrative [facility] - 05/17/2024 2:08 PM EDT This CRP test is appropriate for assessment of infection, systemic inflammation and/or tissue injury. To assess cardiovascular disease risk order high sensitivity CRP (CRPH). us Trinity Yousif APRN LAB BLOOD ORDERABLES Final Res ult Performing Organization Address City/[facility]/ZIP Co de Phone Number [facility] [address] [place] [address] * Potassium (05/16/2024 12:05 PM EDT) Only the most recent of3 resultswithin the time period is included. Potassium, Plasma 4.1 3.6 - 4.9 mmol/L 05/16/2024 2:03 PM EDT [facility] Blood Venous blood specimen / Unknown Venipuncture / Unknown 05/16/2024 12:05 PM EDT 05/16/2024 12:48 PM EDT us Uriah PHILLIP LAB BLOOD ORDERABLES Final Result Performing Organization Address [facility] Co de Phone Number [facility] [address] [place] [address] * (ABNORMAL) Iron & Total Iron Binding Capacity, Plasma (Includes Transferrin) (05/14/2024 12:10 PM EDT) Iron, Plasma 25(L) 30 - 160 ug/dL 05/14/2024 1:01 PM EDT [facility] Transferrin, Plasma 125(L) 200 - 360 mg/dL 05/14/2024 1:01 PM EDT [facility] Total Iron Binding Capacity, Plasma 156(L) 240 - 450 ug/mL 05/14/2024 1:01 PM EDT [facility] Transferrin Saturation 16 14 - 50 % 05/14/2024 1:01 PM EDT [facility] Blood Venous blood specimen / Unknown Venipuncture / Unknown 05/14/2024 12:10 PM EDT 05/14/2024 12:22 PM EDT us Maite Austin MD LAB BLOOD ORDERABLES Final Resu lt Performing Organization Address City/[facility]/ZIP Co de Phone Number [facility] [address] [place] [address] * (ABNORMAL) Ferritin (05/14/2024 12:10 PM EDT) Pathologist [facility] Ferritin, Serum 1,271(H) 13 - 150 ng/mL 05/14/2024 1:05 PM EDT [facility] Blood Venous blood specimen / Unknown Venipuncture / Unknown 05/14/2024 12:10 PM EDT 05/14/2024 12:22 PM EDT us Maite Austin MD LAB BLOOD ORDERABLES Final Resu lt Performing Organization Address [facility] Co de Phone Number [facility] [address] [place] [address] * SARS CoV-2/COVID-19 by PCR (05/13/2024 9:34 PM EDT) [facility] SARS CoV-2/COVID-1 9 RNA PCR Result Not Detected Not Detected 05/15/2024 7:05 AM EDT [facility] Swab Nasopharyngeal structure / Unknown Non-blood Collection / Unknown 05/13/2024 9:34 PM EDT 05/13/2024 10:34 PM EDT Narrative [facility] - 05/15/2024 7:05 AM EDT [...] testing. This test was performed using the [employer] SARS CoV-2 assay, a PCR-based method. Negative results should be considered presumptive and do not preclude current or future infection obtained through community transmission or other exposures. Negative results must be considered in the context of an individual's recent exposures, history, presence of clinical signs and symptoms consistent with COVID-19. us Maite Austin MD LAB MICROBIOLOGY - GENERAL ORDE [facility] Final Result Performing Organization Address [facility]/State/ZIP Co de Phone Number [facility] [address] [place] [address] * Nasopharyngeal Respiratory Panel (05/13/2024 9:34 PM EDT) Nasopharyngeal Respiratory PCR Interpretation Not Detected for all analytes Not Detected for all analytes 05/14/2024 2:56 AM EDT [facility] Swab Nasopharyngeal structure / Unknown Non-blood Collection / Unknown 05/13/2024 9:34 PM EDT 05/13/2024 10:34 PM EDT Narrative [facility] - 05/14/2024 2:56 AM EDT [...] Respiratory PCR Panel is performed using the [employer] instrument. This test is FDA approved for use with Nasopharyngeal swabs only. This test is used for clinical purposes. It should not be regarded as investigational or for research. The [facility] Clinical Microbiology Laboratory is certified under the Clinical Laboratory Improvement Amendments of 1988 (CLIA-88) as qualified to perform high complexity clinical laboratory testing. Maite Austin MD LAB MICROBIOLOGY - GENERAL POLLY MONK Final Result [facility] [address] [place] [address] * (ABNORMAL) POCT venous blood gas gem (05/09/2024 3:15 PM EDT) pH, Venous 7.42 7.32 - 7.43 05/09/2024 3:17 PM EDT [facility] pCO2, Venous 44 37 - 52 mm Hg 05/09/2024 3:17 PM EDT [facility] pO2, Venous <30 25 - 40 mm Hg 05/09/2024 3:17 PM EDT [facility] SO2, Venous 24(L) 65 - 80 % 05/09/2024 3:17 PM EDT [facility] Base Excess/Deficit, Venous 3.6(H) -2 - 3 mmol/L 05/09/2024 3:17 PM EDT [facility] HCO3, Venous 28.5(H) 22 - 26 mmol/L 05/09/2024 3:17 PM EDT [facility] Hemoglobin, Venous 9.7(L) 11.2 - 15.7 g/dL 05/09/2024 3:17 PM EDT [facility] Hematocrit, Venous 29.0(L) 34.0 - 45.0 % 05/09/2024 3:17 PM EDT [facility] Sodium, Venous 143 136 - 145 mmol/L 05/09/2024 3:17 PM EDT [facility] Potassium, Venous 4.1 3.6 - 4.9 mmol/L 05/09/2024 3:17 PM EDT [facility] POCT Chloride, Venous 107 97 - 107 mmol/L 05/09/2024 3:17 PM EDT [facility] Glucose, Venous 89 74 - 99 mg/dL 05/09/2024 3:17 PM EDT [facility] Ionized Calcium, Venous 4.4(L) 4.6 - 5.1 mg/dL 05/09/2024 3:17 PM EDT [facility] Lactate, Venous 3.3(H) 0.5 - 2.2 mmol/L 05/09/2024 3:17 PM EDT [facility] Body Temperature 37.0 Celsius 05/09/2024 3:17 PM EDT [facility] pH, Temp Corrected, Venous 7.42 7.32 - 7.43 05/09/2024 3:17 PM EDT [facility] pCO2, Temp Corrected, Venous 44 37 - 52 mm Hg 05/09/2024 3:17 PM EDT [facility] Flight Engineer Helicopter ID Alka Corona 05/09/2024 3:17 PM EDT [facility] Acknowledged, Notified By RN 05/09/2024 3:17 PM EDT [facility] Critical Notify Time 1515 05/09/2024 3:17 PM EDT [facility] Critical Readback Y 05/09/2024 3:17 PM EDT [facility] Blood, Venous Whole blood specimen / Unknown 05/09/2024 3:15 PM EDT 05/09/2024 3:17 PM EDT us Maite Austin MD LAB POINT OF CARE TE ST DOCKED DEVICE UNSOLICITED RESULTS Final Result Performing Organization Address City/[facility] Co de Phone Number [facility] [address] [place] [address] * BETA HYDROXYBUTYRIC ACID (05/09/2024 11:30 AM EDT) Beta-Hydroxybut yric Acid, Plasma 0.1 <=0.27 mmol/L 05/09/2024 6:19 PM EDT [facility] Blood Venous blood specimen / Unknown Venipuncture / Unknown 05/09/2024 11:30 AM EDT 05/09/2024 12:34 PM EDT Gregg Burdick MD LAB BLOOD ORDERABLES Final Resu lt Performing Organization Address City/[facility] Co de Phone Number [facility] [address] [place] [address] * [place] CRITICAL CARE, ADDL 30 MIN (05/09/2024 11:17 [...] IN CLINIC/BEDSIDE ORDERABLES Fi nal Result * PERIPHERAL IV (SMARTFORM LINK) (05/09/2024 10:10 [...] THERAPY ORDERABLES Final Res ult * (ABNORMAL) Aspartate Aminotransferase, Plasma (05/09/2024 12:52 AM EDT) AST, Plasma 296(H) 10 - 35 U/L 05/09/2024 1:31 PM EDT [facility] Blood Venous blood specimen / Unknown Venipuncture / Unknown 05/09/2024 12:52 AM EDT 05/09/2024 12:57 AM EDT Maite Austin MD LAB BLOOD ORDERABLES Final Resu lt [facility] [address] [place] [address] * (ABNORMAL) Alanine Aminotransferase, Plasma (05/09/2024 12:52 AM EDT) ALT, Plasma 84(H) 10 - 35 U/L 05/09/2024 1:31 PM EDT [facility] Blood Venous blood specimen / Unknown Venipuncture / Unknown 05/09/2024 12:52 AM EDT 05/09/2024 12:57 AM EDT us Maite Austin MD LAB BLOOD ORDERABLES Final Resu lt [facility] [address] [place] [address] * [place] CRITICAL CARE, ADDL 30 MIN (05/08/2024 1:26 [...] IN CLINIC/BEDSIDE ORDERABLES Fi nal Result * [place] CRITICAL CARE, ADDL 30 MIN (05/07/2024 10:11 [...] oximetry, mixed venous (05/07/2024 8:08 AM EDT) Only the most recent of2 resultswithin the time period is included. pH, Mixed Venous 7.27(L) 7.32 - 7.43 LAB HEMATOLOGY METHOD 05/07/2024 8:27 AM EDT [facility] pCO2, Mixed Venous 50 37 - 52 mmHg LAB HEMATOLOGY METHOD 05/07/2024 8:27 AM EDT [facility] pO2, Mixed Venous 52(H) 25 - 40 mmHg LAB HEMATOLOGY METHOD 05/07/2024 8:27 AM EDT [facility] SO2, Measured, Mixed Venous 86(H) 65 - 80 % LAB HEMATOLOGY METHOD 05/07/2024 8:27 AM EDT [facility] Bicarbonate, Calculated, Mixed Venous 23 22 - 26 mmol/L LAB HEMATOLOGY METHOD 05/07/2024 8:27 AM EDT [facility] Base Excess, Mixed Venous -3.8(L) -2.0 - 3.0 mmol/L LAB HEMATOLOGY METHOD 05/07/2024 8:27 AM EDT [facility] Hematocrit, Whole Blood 29.8(L) 34.0 - 45.0 % LAB HEMATOLOGY METHOD 05/07/2024 8:27 AM EDT [facility] Sodium, Whole Blood 151(H) 136 - 145 mmol/L LAB HEMATOLOGY METHOD 05/07/2024 8:27 AM EDT [facility] Potassium, Whole Blood 4.5 3.6 - 4.9 mmol/L LAB HEMATOLOGY METHOD 05/07/2024 8:27 AM EDT [facility] Chloride, Whole Blood 119(H) 97 - 107 mmol/L LAB HEMATOLOGY METHOD 05/07/2024 8:27 AM EDT [facility] Ionized Calcium, Whole Blood 4.9 4.6 - 5.1 mg/dL LAB HEMATOLOGY METHOD 05/07/2024 8:27 AM EDT [facility] Glucose, Whole Blood 112(H) 74 - 99 mg/dL LAB HEMATOLOGY METHOD 05/07/2024 8:27 AM EDT [facility] Oxyhemoglobin, Mixed Venous, Whole Blood 83.4(H) 40.0 - 70.0 % LAB HEMATOLOGY METHOD 05/07/2024 8:27 AM EDT [facility] Hemoglobin Reduced, Mixed Venous, Whole Blood 14.2 % LAB HEMATOLOGY METHOD 05/07/2024 8:27 AM EDT [facility] Total Hemoglobin, Mixed Venous, Whole Blood 9.7(L) 11.2 - 15.7 g/dL LAB HEMATOLOGY METHOD 05/07/2024 8:27 AM EDT [facility] Blood Mixed venous blood specimen / Unknown Venipuncture / Unknown 05/07/2024 8:08 AM EDT 05/07/2024 8:23 AM EDT us Maite Austin MD LAB BLOOD ORDERABLES Final Resu lt [facility] [address] [place] [address] * (ABNORMAL) Hemoglobin (05/07/2024 8:08 AM EDT) HGB 9.9(L) 11.2 - 15.7 g/dL LAB HEMATOLOGY METHOD 05/07/2024 8:46 AM EDT [facility] Blood Venous blood specimen / Unknown Venipuncture / Unknown 05/07/2024 8:08 AM EDT 05/07/2024 8:36 AM EDT us Maite Austin MD LAB BLOOD ORDERABLES Final Resu lt [facility] [address] [place] [address] * (ABNORMAL) Hematocrit (05/07/2024 8:08 AM EDT) HCT 29.0(L) 34.0 - 45.0 % LAB HEMATOLOGY METHOD 05/07/2024 8:46 AM EDT [facility] Blood Venous blood specimen / Unknown Venipuncture / Unknown 05/07/2024 8:08 AM EDT 05/07/2024 8:36 AM EDT us Maite Austin MD LAB BLOOD ORDERABLES Final Resu lt [facility] [address] [place] [address] * (ABNORMAL) POCT arterial blood gas gem (05/07/2024 6:35 AM EDT) Only the most recent of18 resultswithin the time period is included. pH, Arterial 7.32(L) 7.35 - 7.45 05/07/2024 6:36 AM EDT [facility] pCO2, Arterial 44 35 - 48 mm Hg 05/07/2024 6:36 AM EDT [facility] pO2, Arterial 80(L) 83 - 108 mm Hg 05/07/2024 6:36 AM EDT [facility] SO2, Arterial 98 94 - 98 % 05/07/2024 6:36 AM EDT [facility] FIO2 40.0 % 05/07/2024 6:36 AM EDT [facility] Base Excess, Arterial -3.3(L) -2 - 3 mmol/L 05/07/2024 6:36 AM EDT [facility] HCO3, Arterial 22.7 22 - 26 mmol/L 05/07/2024 6:36 AM EDT [facility] Total Hemoglobin, Arterial, Whole Blood 9.7(L) 11.2 - 15.7 g/dL 05/07/2024 6:36 AM EDT [facility] Hematocrit, Arterial 29.0(L) 34.0 - 45.0 % 05/07/2024 6:36 AM EDT [facility] Sodium, Arterial 151(H) 136 - 145 mmol/L 05/07/2024 6:36 AM EDT [facility] Potassium, Arterial 4.9 3.6 - 4.9 mmol/L 05/07/2024 6:36 AM EDT [facility] Chloride, Whole Blood 118(H) 97 - 107 mmol/L 05/07/2024 6:36 AM EDT [facility] Glucose, Arterial 114(H) 74 - 99 mg/dL 05/07/2024 6:36 AM EDT [facility] Ionized Calcium, Arterial 5.5(H) 4.6 - 5.1 mg/dL 05/07/2024 6:36 AM EDT [facility] Lactate, Arterial 3.9(H) 0.5 - 1.6 mmol/L 05/07/2024 6:36 AM EDT [facility] Body Temperature 38.0 Celsius 05/07/2024 6:36 AM EDT [facility] pH, Temp Corrected, Arterial 7.31(L) 7.35 - 7.45 05/07/2024 6:36 AM EDT [facility] pCO2, Temp Corrected, Arterial 46 35 - 48 mm Hg 05/07/2024 6:36 AM EDT [facility] pO2, Temp Corrected, Arterial 85 83 - 108 mm Hg 05/07/2024 6:36 AM EDT [facility] Flight Engineer Helicopter ID [email or web address] 05/07/2024 6:36 AM EDT [facility] Blood, Arterial Whole blood specimen / Unknown 05/07/2024 6:35 AM EDT 05/07/2024 6:36 AM EDT us Maite Austin MD LAB POINT OF CARE TE ST DOCKED DEVICE UNSOLICITED RESULTS Final Result [facility] [address] [place] [address] * [place] CRITICAL CARE, E/M 30-74 MINUTES (05/06/2024 10:03 [...] IN CLINIC/BEDSIDE ORDERABL ES Final Result * Transfuse platelets (05/06/2024 9:09 PM EDT) Only the most recent of2 resultswithin the time period is included. Alfie Khoury MD BLOOD TRANSFUSION ORDERABL ES Final Result * Deena auris Surveillance by PCR (05/06/2024 8:44 PM EDT) Deena auris PCR Result Not Detected Not Detected 05/07/2024 11:20 AM EDT [facility] Swab (Axilla and Groin) Non-blood Collection / Unknown 05/06/2024 8:44 PM EDT 05/06/2024 9:17 PM EDT Narrative [facility] - 05/07/2024 11:20 AM EDT This PCR assay was developed and its performance characteristics determined by [facility] as appropriate for clinical purposes. This assay has not been cleared or approved by the FDA, but is performed in a CLIA regulated laboratory that is qualified to perform high-complexity testing. Maite Austin MD LAB MICROBIOLOGY - GENERAL POLLY MONK Final Result [facility] [address] [place] [address] * PB ANESTHESIA NON-TIMED PROCEDURE PLACEHOLDER (05/06/2024 7:29 PM EDT) BSA 1.62 m2 CAR DO NOT SEND Anatomical Region Laterality Modality Other Narrative 05/06/2024 7:29 PM EDT Alfie Khoury MD 05/06/2024 7:31 PM Procedure Performed: FLOYD General Procedure Information Start Time: End Time: 05/06/2024 7:29 PM Diagnostic Indications for FLOYD: assessment of surgical repair, hemodynamic monitoring Physician Requesting Echo: Maite Austin MD Location performed: OR Modalities: 2D only, pulse wave doppler and color flow mapping Intubated Bite block placed Heart visualized Probe Insertion: Easy Probe Type: Multiplane Preanesthesia Checklist: Patient identified, IV checked, site marked, risks and benefits discussed, surgical consent, monitors and equipment checked, pre-op evaluation and timeout performed. Echocardiographic and Doppler Measurements Ventricles Right Ventricle: Cavity size normal. Hypertrophy not present. Left Ventricle: Cavity size normal. Hypertrophy not present. Other Ventricular Findings: LV function mildly reduced; EF ~ 50%; No RWMA Normal RV function Valves Aortic Valve: Annulus normal. Stenosis not present. Regurgitation absent. Mitral Valve: Annulus normal. Stenosis not present. Regurgitation +1. Tricuspid Valve: Annulus normal. Aorta Ascending Aorta: Plaque thickness less than 3 mm. Mobile plaque not present. Aortic Arch: Plaque thickness less than 3 mm. Mobile plaque not present. Descending Aorta: Plaque thickness less than 3 mm. Mobile plaque not present. Atria Right Atrium: Size normal. Left Atrium: Size normal. Septa Atrial Septum: Intra-atrial septal morphology normal. Other Findings Pericardium: normal Pleural Effusion: none Postprocedure Status: Aorta intact after decannulation. Information obtained during FLOYD exam relayed to the referring surgeon/physician. Anesthesia Information Performed Anesthesiologist Echocardiogram Comments: Post CPB: LV Ef ~ 45-50% Inferior basal hypokinesis; septal hypokinesis Normal RV function Unchanged valve function us Alfie Khoury MD ANESTHESIA ORDERABLES Edit ed Result - Final * Prepare Leukocyte Reduced Platelets: 1 Units (05/06/2024 6:40 PM EDT) Only the most recent of2 resultswithin the time period is included. Product Code [id number] CH BLOO D BANK Dispense Status Transfused BLOOD BANK Blood Expiration Date [id number] BLOOD BANK Unit Number [id number] CH B LOOD BANK Product Blood Type 6200 BLOOD BANK Blood Type A+ BLOOD BANK Blood Venous blood specimen / Unknown Alfie Khoury MD BLOOD BANK PRODUCT ORDERAB LES Final Result BLOOD BANK [address] [place] [address], [place] * [place] AN CENTRAL LINE SINGLE LUMEN, PB ANESTHESIA NON-TIMED PROCEDURE PLACEHOLDER, ANESTHESIA ULTRASOUND GUIDED, NJ INSERT/PLACE FLOW DIRECT CATH (05/06/2024 10:51 AM EDT) Narrative Alfie Khoury MD - 05/06/2024 10:51 AM EDT Alfie Khoury MD 05/08/2024 8:26 AM Central Venous Line: A central venous line was placed in the OR for the following indication(s): central venous access and CVP monitoring. Sterility preparation included the following: provider hand hygiene performed prior to central venous catheter insertion, all 5 sterile barriers used (gloves, gown, cap, mask, large sterile drape) during central venous catheter insertion, antiseptic used during central venous catheter insertion and skin prep agent completely dried prior to procedure. The patient was placed in Trendelenburg position. Right internal jugular vein was prepped. The site was prepped with Chlorhexidine. A 9 Fr (size), 20 (length), introducer single lumen was placed. This catheter was an oximetric catheter. During the procedure, the following specific steps were taken: target vein identified, needle advanced into vein and blood aspirated and guidewire advanced into vein. Seldinger technique used Procedure performed using ultrasound guidance Sterile gel and probe cover used in ultrasound-guided central venous catheter insertion. Intravenous verification was obtained by ultrasound, venous blood return and transducer. Post insertion care included: all ports aspirated, all ports flushed easily, guidewire removed intact, Biopatch applied, line sutured in place and dressing applied. During the procedure the patient experienced: patient tolerated procedure well with no complications. PA Catheter Placed A oximetric, 8 (size) Pulmonary Artery Catheter (PAC) was placed through the Introducer CVL in the right internal jugular vein. The PAC placement was confirmed by pressure tracing changes and FLOYD. The patient experienced the following events during the procedure: patient tolerated procedure well with no complications. Staffing Performed: Resident Anesthesiologist: Alfie Khoury MD Resident: Jake Gallagher MD Alfie Khoury MD ANESTHESIA ORDERABLES Namrata l Result * PB ANESTHESIA NON-TIMED PROCEDURE PLACEHOLDER (05/06/2024 10:50 AM EDT) Narrative Alfie Khoury MD - 05/06/2024 10:50 AM EDT Alfie Khoury MD 05/08/2024 8:26 AM Arterial Line: An arterial line was placed. Procedure performed using ultrasound guidance in the OR for the following indication(s): continuous blood pressure monitoring and blood sampling needed. A 20 gauge (size), 1 and 3/4 inch (length), Arrow (type) catheter was placed into the Left radial artery and secured by suture. Seldinger technique used Events: patient tolerated procedure well with no complications. Staffing Performed: Resident Anesthesiologist: Alfie Khoury MD Resident: Jake Gallagher MD Alfie Khoury MD ANESTHESIA ORDERABLES Namrata l Result * (ABNORMAL) QPLUS (05/06/2024 10:36 AM EDT) [facility] Clot Time 161 104 - 166 Seconds 05/06/2024 10:49 AM EDT [facility] Clot Time Ratio 1.2 0.8 - 1.2 10:49 AM EDT [facility] Comment:The Clot Time Ratio (CTR) is a calculated parameter. CTR values of 0.8 1.2 are demonstrated to be typical of n ormal patient samples. Samples with CTR values > 1.4 are indicative of prolongation of the intrinsic pathway clotting time, likely due to the influence of unfractionated heparin. POCT Clot Stiffness 36.4(H) 13.0 - 33.2 hectoPascals 05/06/2024 10:49 AM EDT [facility] Platelet Contribution to Clot Stiffnes 31.9(H) 11.9 - 29.8 hectoPascals 05/06/2024 10:49 AM EDT [facility] Fibrinogen Contribution to Clot Stiffness 4.5(H) 1.0 - 3.7 hectoPascals 05/06/2024 10:49 AM EDT [facility] Heparinase Clot Time 134 103 - 153 Seconds 05/06/2024 10:49 AM EDT [facility] Flight Engineer Helicopter ID Carloz shirley Alfie 05/06/2024 10:49 AM EDT [facility] Device ID [id number] 05/06/2024 10:49 AM EDT [facility] Whole Blood 05/06/2024 10:3 6 AM EDT 05/06/2024 10:49 AM EDT us Erum Bahena MD LAB POINT OF CARE TEST DOCKED DEVICE UNSOLICITED RESULTS Final Result Performing Organization Address City/State/[facility] Co de Phone Number [facility] [address] [place] [id number] * [place] AN ELECTIVE ENDOTRACHEAL AIRWAY, PB ANESTHESIA PLACEHOLDER (05/06/2024 9:34 AM EDT) Narrative Alfie Khoury MD - 05/06/2024 9:34 AM EDT Alfie Khoury MD 05/08/2024 8:26 AM Airway Date/Time: 05/06/2024 9:34 AM Reason: elective Airway not difficult General Information and Staff Patient location during procedure: OR Anesthesiologist: Alfie Khoury MD Resident: Jake Gallagher MD Performed: Resident Patient Condition Indications for airway management: anesthesia Patient position: sniffing Final Airway Details Final airway type: endotracheal airway Successful airway: ETT Cuffed: yes Successful intubation technique: direct laryngoscopy Adjuncts used in placement: intubating stylet Endotracheal tube insertion site: oral Blade: Simona Blade size: #3 ETT size (mm): 7.5 Cormack-Lehane Classification: grade IIa - partial view of glottis Placement verified by: chest auscultation and capnometry Measured from: teeth ETT to teeth (cm): 20 Additional Comments Atraumatic. No change to dentition. us Alfie Khoury MD ANESTHESIA ORDERABLES Namrata l Result * (ABNORMAL) P2Y12 Platelet Receptor Blockade, Verify Now PRU (05/06/2024 12:07 AM EDT) Only the most recent of6 resultswithin the time period is included. P2Y12 PRU 134(L) 194 - 418 PRU 05/06/2024 12:32 AM EDT [facility] Blood Venous blood specimen / Unknown Venipuncture / Unknown 05/06/2024 12:07 AM EDT 05/06/2024 12:23 AM EDT Narrative [facility] - 05/06/2024 12:32 AM EDT [...] to the clinician. Testing performed in the [facility]. us Trinity Yousif MANAGER BAR LAB BLOOD ORDERABLES Final Res ult [facility] [address] [place] [address] * POC Imaging (05/06/2024) Anatomical Region Laterality Modality Pelvis Other 05/06/2024 us External Provider IMG POINT OF CARE ULTRASOUND F inal Result * Pulmonary function testing (05/03/2024 8:37 AM EDT) FEC7TMD 2.23 L 05/03/2024 8:31 AM EDT VYAIRE [...] 1.84 05/03/2024 8:31 AM EDT VYAIRE PFT WHF7SKEQMJTFW -2.47 05/03/2024 8:31 AM EDT VYAIRE PFT FEV1_Pre%Pred 65 % % 05/03/2024 8:31 AM EDT VYAIRE PFT FEV1 PREDAUTH US_Quanjer GLI (2011) 05/03/2024 8:31 AM EDT VYAIRE PFT FEV1 Z-SCORE -2.47 05/03/2024 8:31 AM EDT VYAIRE PFT FEV1/FVC PRE 69.79 % 05/03/2024 8:31 AM EDT VYAIRE PFT HTW2WJHMTEP 80 05/03/2024 8:31 AM EDT VYAIRE PFT KXQ6CBQPQI 69 05/03/2024 8:31 AM EDT VYAIRE PFT VIR2YEYUNWBDWTXX -1.53 05/04/19 8:31 AM EDT VYAIRE PFT CWR8BECPCS%PRED 87 % % 8:31 AM EDT VYAIRE PFT DPS1LVESMYYQ US_Quanjer GLI (2011) 05/03/2024 8:31 AM EDT VYAIRE PFT VEO8VFVXWGZKA -2 05/03/2024 8:31 AM EDT VYAIRE PFT KIN33-17% PRE 0.96 L/s 05/03/2024 8:31 AM EDT VYAIRE PFT KUQ79-68%_Pred 2.36 05/03/2024 8:31 AM EDT VYAIRE PFT ISW6742%LLN 1.27 05/03/2024 8:31 AM EDT VYAIRE PFT LGU5070%PREZSCORE -2.25 025 8:31 AM EDT VYAIRE PFT VEP1621%PRE%PRED 41 % % 05/04/19 8:31 AM EDT VYAIRE PFT RBK2284%[facility] US_Quanjer GLI (2011) 05/03/2024 8:31 AM EDT VYAIRE PFT PEF PRE 4.76 L/s 05/03/2024 8:31 AM EDT VYAIRE PFT PEF PRED 6.14 05/03/2024 8:31 AM EDT VYAIRE PFT PEF LLN 4.58 05/03/2024 8:31 AM EDT VYAIRE PFT PEFPREZSCORE -1.46 05/03/2024 8:31 AM EDT VYAIRE PFT PEFPRE%PRED 78 % % 05/03/2024 8:31 AM EDT V[facility]AIRE PFT [facility] NH[facility] (1998[facility] 05/03/2024 8:31 AM EDT VYAIRE PFT WZNVQQMJKZZYNLIR7PIA 19.34 ml/(min* mmHg) 05/03/2024 8:31 AM EDT VYAIRE PFT DLCOSINGLEBREATH PRED 18.72 05/03/2024 8:31 AM EDT VYAIRE PFT DLCOSINGLEBREATH LLN 14.50 04/15 8:31 AM EDT VYAIRE PFT DLCOSINGLEBREATH Z-SCORE 0.22 05/03/2024 8:31 AM EDT VYAIRE PFT DLCOSINGLEBREATH % PRED 103.3 % 05/03/2024 8:31 AM EDT VYAIRE PFT DLCOSINGLEBREATH [facility] Elvis ASENCIOO GLI (2019) 05/03/2024 8:31 AM EDT VYAIRE PFT DLCOSINGLEBREATH Z-SCORE 0.22 05/03/2024 8:31 AM EDT VYAIRE PFT PBAXHIPFAAVZOQQMO4WP E 20.34 ml/(min* mmHg) 05/03/2024 8:31 AM EDT VYAIRE PFT DLCOCSINGLEBREATH PRED 18.72 05/03/2024 8:31 AM EDT VYAIRE PFT DLCOCSINGLEBREATH LLN 14.50 05/03/2024 8:31 AM EDT VYAIRE PFT DLCOCSINGLEBREATH Z-SCORE 0.56 05/03/2024 8:31 AM EDT VYAIRE PFT DLCOCSINGLEBREATH % PRED 108.7 % 05/03/2024 8:31 AM EDT VYAIRE PFT DLCOCSINGLEBREATH PREDAUTH Stanojevic TLCO GLI (2019) 05/03/2024 8:31 AM EDT VYAIRE PFT MWGURH0MGO 4.32 ml/(min* mmHg*L) 05/03/2024 8:31 AM EDT VYAIRE PFT DLCOVAPRED 4.40 05/03/2024 8:31 AM EDT VYAIRE PFT DLCOVALLN 3.42 05/03/2024 8:31 AM EDT VYAIRE PFT DLCOVAZSCORE -0.13 05/03/2024 8:31 AM EDT VYAIRE PFT DLCOVA%PRED 98.2 % 05/03/2024 8:31 AM EDT VYAIRE PFT DLCOVAPREDAUTH Stanojevic TLCO GLI (2019) 05/03/2024 8:31 AM EDT VYAIRE PFT DLCOVAZSCORE -0.13 05/03/2024 8:31 AM EDT VYAIRE PFT SLUURBRGT2ZNV 4.55 ml/(min* mmHg*L) 05/03/2024 8:31 AM EDT VYAIRE PFT DLCOC SB/VA PRED 4.40 05/04/19 8:31 AM EDT VYAIRE PFT DLCOC SB/VA LLN 3.42 8:31 AM EDT VYAIRE PFT DLCOC SB/VA Z-SCORE 0.23 05/03 8:31 AM EDT VYAIRE PFT DLCOC SB/VA % PRED 103.3 % 2024 8:31 AM EDT VYAIRE PFT DLCOC SB/VA [facility] Elvis TLCO GLI (2019) 05/03/2024 8:31 AM EDT VYAIRE PFT DLCOC SB/VA Z-SCORE 0.23 05/03 8:31 AM EDT VYAIRE PFT YLEAMSEOFZLIZX7VUS 4.47 L 2024 8:31 AM EDT VYAIRE PFT VASINGLEBREATH PRED 4.29 05/03 8:31 AM EDT VYAIRE PFT VASINGLEBREATH LLN 3.49 2024 8:31 AM EDT VYAIRE PFT VASINGLEBREATH Z-SCORE 0.37 05/03/2024 8:31 AM EDT VYAIRE PFT VASINGLEBREATH % PRED 104.4 % 05/03/2024 8:31 AM EDT VYAIRE PFT VASINGLEBREATH [facility] Elvis TLCO GLI (2019) 05/03/2024 8:31 AM EDT VYAIRE PFT VASINGLEBREATH Z-SCORE 0.37 05/03/2024 8:31 AM EDT VYAIRE PFT UCWUQKEANTYJHVD2XGO 2.44 L 05/03 8:31 AM EDT VYAIRE PFT IVCSINGLEBREATH PRED 2.99 03/ 8:31 AM EDT VYAIRE PFT IVCSINGLEBREATH LLN 2.31 05/03 8:31 AM EDT VYAIRE PFT IVCSINGLEBREATH Z-SCORE -1.32 05/03/2024 8:31 AM EDT VYAIRE PFT IVCSINGLEBREATH % PRED 81.7 % 05/03/2024 8:31 AM EDT VYAIRE PFT IVCSINGLEBREATH [facility] _Quanjer GLI (2011) 05/03/2024 8:31 AM EDT VYAIRE PFT HB PRE 11.90 g(Hb)/dL 05/03/2024 8:31 AM EDT VYAIRE PFT YNQ9LVS 4.18 L 05/03/2024 8:31 AM EDT VYAIRE [...] (2019)__ 05/03/2024 8:31 AM EDT VYAIRE PFT BJJHBGLZ5KJR 2.31 L 05/03/2024 8:31 AM EDT VYAIRE PFT FRCPLETH PRED 2.37 05/03/2024 8:31 AM EDT VYAIRE PFT FRCPLETH LLN 1.68 05/03/2024 8:31 AM EDT VYAIRE PFT FRCPLETH ULN 3.24 05/03/2024 8:31 AM EDT VYAIRE PFT FRCPLETH Z-SCORE -0.13 05/04/19 8:31 AM EDT VYAIRE PFT FRCPLETH % PRED 97.5 % 8:31 AM EDT VYAIRE PFT FRCPLETH [facility] Lung volumes GLI (2019)__ 05/03/2024 8:31 AM EDT VYAIRE PFT LQZ6GKY 0.42 L 05/03/2024 8:31 AM EDT VYAIRE [...] (2019)__ 05/03/2024 8:31 AM EDT VYAIRE PFT RV%QYH4FLT 45.22 % 05/03/2024 8:31 AM EDT VYAIRE PFT RV%TLCPRED 31 05/03/2024 8:31 AM EDT VYAIRE PFT RV%TLCLLN 20 05/03/2024 8:31 AM EDT VYAIRE PFT RV%TLCULN 42 05/03/2024 8:31 AM EDT VYAIRE PFT RV%TLCZSCORE 2.12 05/03/2024 8:31 AM EDT VYAIRE PFT RV%TLC%PRED 147.7 % 05/03/2024 8:31 AM EDT VYAIRE PFT RV%TLCPREDAUTH [place] Lung volumes GLI (2019)__ 05/03/2024 8:31 AM EDT VYAIRE PFT GGN6FRD 2.40 L 05/03/2024 8:31 AM EDT VYAIRE PFT Anatomical Region Laterality Modality PFT 05/03/2024 8:06 AM EDT Narrative 05/04/2024 4:54 PM EDT Pulmonary Function Testing Report Rere Reese 53 y.o. underwent pulmonary function testing today at the [facility]. The patient underwent spirometry, lung volumes [...] no prior studies for comparison. Marylu Carvajal MANAGER BAR, DNP PFT ORDERABLES Namrata otto Result * VAS US Carotid Duplex Bilateral (05/02/2024 [...] CV VASCULAR PROCEDUR ES Final Result * ECHO, ADULT TRANSTHORACIC COMPLETE W/ 3D [...] mean PAP 12 mmHg ALEXIA ISCV PA [place](ACCEL) 13.6 mmHg ALEXIA ISCV PA acc slope [...] is no recent study available for direct igcz-nf-zojw comparison. Left Ventricle Based on the linear [...] is no recent study available for direct iuej-xl-bozh comparison. Marylu Carvajal APRN, DNP CV ECHO PROCEDURES F inal Result * (ABNORMAL) Troponin T, High Sensitivity, 2 Hour, Plasma (05/02/2024 2:23 AM EDT) Troponin T, High Sensitivity, 2 Hour 31(H) <14 ng/L 05/02/2024 2:53 AM EDT [facility] Troponin Delta 3 <10 ng/L 05/02/2024 2:53 AM EDT [facility] Troponin Delta Interpretation Not Significant 05/02/2024 2:53 AM EDT [facility] Comment:Not Significant. No acute change in troponin observed between the baseline and 2 hour samples. Blood Venous blood specimen / Unknown Venipuncture / Unknown 05/02/2024 2:23 AM EDT 05/02/2024 2:26 AM EDT Marylu Carvajal APRN, DNP LAB BLOOD ORDERABLES Final Result [facility] [address] [place] [address] * CT Chest wo IV Contrast (05/02/2024 [...] on 05/02/2024 8:22 AM Marylu Carvajal APRN, DNP IMG CT PROCEDURES Fi nal Result * Gold Top (05/01/2024 11:58 PM EDT) Pathologist [facility] Extra Hold for add-ons 05/02/2024 3:02 AM EDT [facility] Comment:Auto resulted. Blood Venous blood specimen / Unknown 05/01/2024 11:58 PM EDT 05/02/2024 12:08 AM EDT Edson Mcclure DO LAB BLOOD ORDERABLES Final R esult Performing Organization Address City/[facility]/ZIP Co de Phone Number [facility] [address] [place] [address] * (ABNORMAL) Troponin T, High Sensitivity, 0 Hour Plasma, Reflex to 2 Hour (05/01/2024 11:58 PM EDT) Pathologist [facility] Troponin T, High Sensitivity, 0 Hour 34(H) <14 ng/L 05/02/2024 12:40 AM EDT [facility] Blood Venous blood specimen / Unknown Venipuncture / Unknown 05/01/2024 11:58 PM EDT 05/02/2024 12:05 AM EDT Marylu Carvajal APRN, DNP LAB BLOOD ORDERABLES Final Result [facility] [address] [place] [address] * Ionized calcium, serum (05/01/2024 11:58 PM EDT) Pathologist [facility] Ionized Calcium, Serum 4.6 4.6 - 5.3 mg/dL LAB HEMATOLOGY METHOD 05/02/2024 1:03 AM EDT [facility] Blood Venous blood specimen / Unknown Venipuncture / Unknown 05/01/2024 11:58 PM EDT 05/02/2024 12:07 AM EDT Marylu Carvajal APRN, DNP LAB BLOOD ORDERABLES Final Result [facility] [address] [place] [address] * Fibrinogen, Quantitative (Clottable) (05/01/2024 11:58 PM EDT) Fibrinogen, Quantitative (Clottable) 291 208 - 459 mg/dL LAB COAGULATION METHOD 05/02/2024 1:05 AM EDT [facility] Blood Venous blood specimen / Unknown Venipuncture / Unknown 05/01/2024 11:58 PM EDT 05/02/2024 12:05 AM EDT Marylu Carvajal APRN, DNP LAB BLOOD ORDERABLES Final Result Performing Organization Address City/[facility] Co de Phone Number [facility] [address] [place] [address] * Hemoglobin A1c (05/01/2024 11:58 PM EDT) Hemoglobin A1c 5.3 <5.7 % 05/02/2024 6:29 AM EDT [facility] Blood Venous blood specimen / Unknown 05/01/2024 11:58 PM EDT 05/02/2024 12:08 AM EDT Narrative [facility] - 05/02/2024 6:29 AM EDT HA1C Interpretive Data: Diagnosis of Diabetes: Diabetic > or = 6.5% Pre-diabetic 5.7 to 6.4% Non-diabetic < or = 5.6% Glycemic Targets for Type I and Type II Diabetics: Non- Adults <7.0% Adults <6.0% Children and Adolescents <7.5% Source: [place] [employer]. Standards of medical care in diabetes,2017. Diabetes Care.2017:40 (suppl 1):S1-S135. HbA1c assay performed by an ion-exchange chromatography method that is certified traceable to the DCCT. Anne Marie PHILLIP LAB BLOOD ORDERABLES Final Result [facility] [address] [place] [address] * (ABNORMAL) Lipid panel (05/01/2024 11:58 PM EDT) Cholesterol, Plasma 247(H) <200 mg/dL 05/02/2024 6:36 AM EDT [facility] Comment: Cholesterol Reference Range (age >17 years): Desirable <200 mg/dL Borderline 200 to 239 mg/dL Undesirable >239 mg/dL HDL 36(L) >=50 mg/dL 05/02/2024 6:36 AM EDT [facility] Comment: HDL Cholesterol Reference Ranges (age >17 years): Female, acceptable > or = 50 mg/dL Male, acceptable > or = 40 mg/dL Triglycerides, Plasma 271(H) <150 mg/dL 05/02/2024 6:36 AM EDT [facility] Comment: Triglyceride Reference Range (age >17 years): Desirable: <150 mg/dL Borderline high: 150 to 199 mg/dL High: 200 to 499 mg/dL Very high: >499 mg/dL Increased risk of pancreatitis: >1000 mg/dL Cholesterol/HDL Ratio 7 05/02/2024 6:36 AM EDT [facility] LDL, Calculated 160(H) <100 mg/dL 6:36 AM EDT [facility] Comment: LDL Cholesterol Reference Range [...] 12 hours? Unknown 05/02/2024 6:36 AM EDT [facility] Blood Venous blood specimen / Unknown 05/01/2024 11:58 PM EDT 05/02/2024 12:08 AM EDT us Anne Marie PHILLIP LAB BLOOD ORDERABLES Final Result [facility] [address] [place] [address] * IR OUTSIDE IMAGES (05/01/2024 12:08 PM EDT) Only the most recent of2 resultswithin the time period is included. Anatomical Region Laterality Modality X-Ray Angiograph y 05/01/2024 12:0 8 PM EDT us dJ Bentley MD IMG IR PROCEDURES Final Re sult * XR OUTSIDE IMAGES (04/30/2024 11:32 PM EDT) Anatomical Region Laterality Modality Radiographic Leatha ging 04/30/2024 11:3 2 PM EDT us External Provider IMG XR PROCEDURES Final Result from Last 3 Months Insurance MEDICAID Advance Directives * Full Code (Latest Code Status on File) Date Activated Date Inactivated Comments 06/04/2024 10:18 AM 06/21/2024 5:46 PM Question Answer Comments I have reviewed the capacity from the link above and, if needed, have updated to appropriate status: Yes * Full Code Date Activated Date Inactivated Comments 05/06/2024 8:27 PM 06/04/2024 10:18 AM * Full Code Date Activated Date Inactivated Comments 05/02/2024 12:06 PM 05/06/2024 8:27 PM Care Teams Livestock Sales Representative Relationship Specialty Start Date End Date Champ Quiroz MD [address] [place] [address] [place] [address] PCP - General Internal Medicine 06/29/24
--- OUTSIDE RECORDS SUMMARY | 2024-07-21 18:43 | XMS_ITS | Encounter Summary ---
Author Organization Healthcare Address [address] [place] [address] Care Team Providers Care Demo Specialist Name Role Phone Pcp, No Primary Care Provider Unavailabl e Encounter Details Date Type Department Care Team (Latest Contact Info) Description 06/09/2024 Travel Social History Tobacco Use Types Packs/Day [...] any time in the past 12 m [facility] were you homeless or living in a skilled nursing (including now)? No 05/02/2024 Utilities Answer Date [...] Date of Assessment Author No Risk Indicated 06/09/2024 8:00 AM EDT Jenifer Valdovinos RN * Question Answer Date of Assessment Author 1. Wish to be (Past 1 Month) No 06/09/2024 8:00 AM PITOT Jenifer Reyes RN 2. Non-Specific Active Suici erica Thoughts (Past 1 Month) No 06/09/2024 8:00 AM EDT Judie Reyes RN 6. Suicidal Behavior (Lifetime) No 8:00 AM PITOT eJnifer Reyes RN documented as of this encounter Plan of Treatment Upcoming Encounters Date Type Department Care Team (Late st Contact Info) Description 07/31/2024 9:00 AM EDT Office Visit [facility] General Surgery [address] [place] [phone] Lidia Troncoso MD [address] [place] [address] documented as of this encounter Goals Goal [...] documented as of this encounter Care Teams Demo Specialist Relationship Specialty Start Date End Date Pcp, [place] [address] PCP - General Family Medicine 04/04/24 06/28/24 documented as of this encounter
--- OUTSIDE RECORDS SUMMARY | 2024-07-21 18:43 | XMS_ITS | Encounter Summary ---
Author Organization Healthcare Address [address] [place] [address] Care Team Providers Care Tie Worker Name Role Phone Pcp, No Primary Care Provider Unavailabl e Encounter Details Date Type Department Care Team (Latest Contact Info) Description 06/05/2024 Travel Social History Tobacco Use Types Packs/Day [...] in a fdc (including now)? No 05/02/2024 Utilities Answer Date [...] Date of Assessment Author No Risk Indicated 06/05/2024 8:00 AM EDT Suze Pham * Question Answer Date of Assessment Author 1. Wish to be (Past 1 Month) No 025 8:00 AM EDT Suze Montez 2. Non-Specific Active Suici erica Thoughts (Past 1 Month) No 06/05/2024 8:00 AM EDT Joelle Montez 6. Suicidal Behavior (Lifetime) No 8:00 AM EDT Suze Montez documented as of this encounter Plan of Treatment Upcoming Encounters Date Type Department Care Team (Late st Contact Info) Description 07/31/2024 9:00 AM EDT Office Visit [facility] General Surgery [address] [place] [address] Lidia Troncoso MD [address] [place] [address] documented as of this encounter Goals Goal [...] documented as of this encounter Care Teams Tie Worker Relationship Specialty Start Date End Date Pcp, [place] [address] PCP - General Family Medicine 04/04/24 06/28/24 documented as of this encounter
--- OUTSIDE RECORDS SUMMARY | 2024-07-21 18:43 | XMS_ITS | Encounter Summary ---
Author Organization Healthcare Address [address] [place] [address] Care Team Providers Care Promotions Representative Name Role Phone Pcp, No Primary Care Provider Unavailabl e Encounter Details Date Type Department Care Team (Latest Contact Info) Description 06/11/2024 Travel Social History Tobacco Use Types Packs/Day [...] time in the past 12 m [facility], were you homeless or living [...] Date of Assessment Author No Risk Indicated 06/11/2024 8:00 PM EDT Dawn Johnson RN * Question Answer Date of Assessment Author 1. Wish to be (Past 1 Month) No 025 8:00 PM EDT Heather Johnson RN 2. Non-Specific Active Suici erica Thoughts (Past 1 Month) No 06/11/2024 8:00 PM EDT Sam Johnson RN 6. Suicidal Behavior (Lifetime) No 8:00 PM EDT Heather Johnson RN documented as of this encounter Plan of Treatment Upcoming Encounters Date Type Department Care Team (Late st Contact Info) Description 07/31/2024 9:00 AM EDT Office Visit [facility] General Surgery [address] [place] [phone] Lidia Troncoso MD [address] [place] [address] documented as of this encounter Goals Goal [...] documented as of this encounter Care Teams Promotions Representative Relationship Specialty Start Date End Date Pcp, [place] [address] PCP - General Family Medicine 04/04/24 06/28/24 documented as of this encounter
--- OUTSIDE RECORDS SUMMARY | 2024-07-21 18:44 | XMS_ITS | Encounter Summary ---
Author Organization Healthcare Address [address] [place] [address] Care Team Providers Care Metaphysics Teacher Name Role Phone Pcp, No Primary Care Provider Unavailabl e Encounter Details Date Type Department Care Team (Latest Contact Info) Description 06/08/2024 Travel Social History Tobacco Use Types Packs/Day [...] were you homeless or living in a senior living (including now)? No 05/02/2024 Utilities Answer Date [...] Date of Assessment Author No Risk Indicated 06/08/2024 8:00 PM EDT Cyndie Jackson RN * Question Answer Date of Assessment Author 1. Wish to be (Past 1 Month) No 025 8:00 PM EDT Cyndie Jackson RN 2. Non-Specific Active Suici erica Thoughts (Past 1 Month) No 06/08/2024 8:00 PM EDT Kavya Jackson RN 6. Suicidal Behavior (Lifetime) No 8:00 PM EDT Cyndie Jackson RN documented as of this encounter Plan of Treatment Upcoming Encounters Date Type Department Care Team (Late st Contact Info) Description 07/31/2024 9:00 AM EDT Office Visit [facility] General Surgery [address] [place] [address] Lidia Troncoso MD [address] [place] [address] documented as of this encounter Goals Goal [...] documented as of this encounter Care Teams Metaphysics Teacher Relationship Specialty Start Date End Date Pcp, [place] [address] PCP - General Family Medicine 04/04/24 06/28/24 documented as of this encounter
--- OUTSIDE RECORDS SUMMARY | 2024-07-21 18:44 | XMS_ITS | Patient Health Record ---
Author Organization [facility] Address [address] [place] [address] Care Team Providers Care Communications Professional Name Role Phone MateusMichaelle Thompson Primary Care Provider [phone] Champ Quiroz Unavailable [phone] Migration, Provider Unavailable Unavailable Allergies Allergen (clinical drug ingredient) Drug/Non Drug Allergy documented on EMR Reaction Allergy Type Onset Date Status LATEX GLOVES (uncoded) Unknown Allergy Active acetaminophen / oxycodone Percocet stomach upset, sweating Drug Allergy Active Medications Medication SIG (Take, Route, Frequency, Duration) Notes Start Date End Date Status Primidone 50 MG 1 tab(s) orally twic e a day for 90 days Active Acetaminophen 500 MG 2 tablet as needed Orally every 6 hrs Active Rosuvastatin Calcium 40 MG 1 tablet Oral ly Once a day for 30 days Active Citalopram Hydrobromide 40 MG 1 tab(s) orally once a day for 90 days Active Combivent Respimat 20-100 MCG/ACT INHALE 1 PUFF BY MOUTH 4 TIMES DAILY for 30 days prn Active Simethicone 80 MG 1 tablet after meals and at bedtime as needed Orally Four times a day Active Pyridium 200 MG 1 tablet after meals Orally Three times a day for 2 days 07/02/2024 Active buPROPion HCl ER (XL) 300 MG 1 tab(s) or ally every 24 hours for 30 days 04/20/2024 Active Metoprolol Tartrate 25 MG 1 tablet Orall y Twice a day Active hydrOXYzine HCl 10 MG 1 tab orally every 8 hours for 30 days Active Flonase Allergy Relief 50 MCG/ACT 1 spray in each nostril Nasally Twice a day Active Loratadine 10 MG 1 tablet Orally Once a day Active Aspirin 81 81 MG 1 tablet Orally Once a day Active Immunizations Vaccine Route Administration Date Status Comme nts ZZ IM Intramuscular 10/15/2006 Administered Social History Tobacco Use: Social History Observation [...] Problem Status W/U Status Risk Notes Problem 177305880 Psychophysiologi c insomnia (F51.04) Active confirmed Problem 022018715 Essential tremor (G25.0) Active confirmed Problem 9206646 Panlobular emphy sema (J43.1) Active confirmed Problem 100868182331415 Sciatica, left s reagan (M54.32) Active confirmed Problem 027810295370314 Lumbago with sciatica, right side (M54.41) Active confirmed Problem 010290395 Lumbago with sciatica, left side (M54.42) Active confirmed Problem 589569388 Depression with anxiety (F41.8) Active confirmed Problem 42052171 Anxiety (F41.9) Active confirmed Problem 696672506 B12 deficiency (E53.8) Active confirmed Problem 812129168 COPD exacerbatio n (J44.1) Active confirmed Problem 998387683 Atherosclerosis of [place] coronary artery of [place] heart without angina pectoris (I25.10) Active confirmed Problem 43561433 Skin lesions (L98.9) Active confirmed Vital Signs Heart Rate 96 /min 07/18/2024 Temperature 97.8 degrees Fahrenheit 07/18/2024 Blood pressure diastolic 70 mm Hg 07/18/2024 Height 5 ft 1 in in 07/18/2024 Blood pressure systolic 104 mm Hg 07/18/2024 Weight 117.8 lbs 07/18/2024 BMI 22.26 kg/m2 07/18/2024 Encounters Encounter Location Date Provider Diagnosis [facility] [address] [place] [address] 05/19/2024 Provider Migration Depression with anxiety F41.8 and COPD exacerbation J44.1 [facility] [place] [address] [address] 10/21/2023 Michaelle McNees Pain in joints of ri ght hand M25.541 and Pain in joints of left hand M25.542 [facility] [address] [address] 12/29/2023 Champ Richie Acute bronchitis, unspecified organism J20.9 ; Subacute cough R05.2 and Sciatica, left side M54.32 [facility] [place] [address] [address] 04/20/2024 Michaelle McNees Depression with anxi ety F41.8 and COPD exacerbation J44.1 [facility] [address] [facility] [address] [place] [address] 07/02/2024 Champjenniffer Quiroz Tremor R25.1 ; Atherosclerosis of [place] coronary artery of [place] heart without angina pectoris I25.10 ; Anxiety F41.9 ; Hospital discharge follow-up Z09 ; Dysuria R30.0 and Colostomy present Z93.3 [facility] [address] [facility] [address] [place] [address] 07/18/2024 Champ Richie Pelvic pain in femal e R10.2 and Panlobular emphysema J43.1 [facility] [address] [facility] [address] [place] [address] 07/20/2024 Michaelle McNees Hypokalemia E87.6 [facility] [address] [facility] [address] [place] [address] 09/01/2023 Michaelle McNees [facility] [address] [facility] [address] [place] [address] 09/02/2023 Michaelle McNees [facility] [address] [facility] [address] [place] [address] 10/21/2023 Michaelle McNees [facility] [address] [facility] [address] [place], [place] [address] 11/28/2023 Michaelle McNees [facility] [address] [place], [place] [address] 02/06/2024 Michaelle McNees [facility] [address] [place], [place] [address] 04/20/2024 Michaelle McNees [facility] [address] [place], [place] [address] 07/20/2024 Michaelle McNees Assessments Encounter Date Diagnosis (ICD Code) Assessment Notes Treatment Notes Treatment Clinical Notes Section Notes 07/20/2024 Hypokalemia (ICD-10 - E87.6) 10/21/2023 Pain in joints of right hand (ICD-10 - M25.541) Pain likely related to arthritis. Rest, warm epsom salt soaks, tylenol arthritis prn, prednisone and diclofenac gel as above 10/21/2023 Pain in joints of left hand (ICD-10 - M25.542) 07/02/2024 Tremor (ICD-10 - R25.1) Tremor seems to be at baseline, slightly worse with her anxiety issues from hospitalization. Long discussion. Seem to be helpful for her 07/02/2024 Atherosclerosis of [place] coronary artery of [place] heart without angina pectoris (ICD-10 - I25.10) Status post bypass. On appropriate medication 12/29/2023 Acute bronchitis, unspecified organism (ICD-10 - J20.9) Discussed the etiology and expected course of bronchitis. Discussed the rationale for antibiotics and steroid use and the importance of completeing the prescription as prescribed. Discussed supportive care. Discussed the signs and symptoms of worsening infection/respira tory distress that may indicate need for reassement in clinic/ED. 12/29/2023 Subacute cough (ICD-10 - R05.2) 07/18/2024 Panlobular emphysema (ICD-10 - J43.1) Stable. Off cigarettes, continue inhalers. 07/18/2024 Pelvic pain in female (ICD-10 - R10.2) CUSTOMER ENGINEER evaluation. Possible ongoing problems from catheter but will have them take a look 05/19/2024 Depression with anxiety (ICD-10 - F41.8) 05/19/2024 COPD exacerbation (ICD-10 - J44.1) 04/20/2024 Depression with anxiety (ICD-10 - F41.8) Increase Wellbutrin as listed above. Discussed mechanism of action, expected time course for reports meds and side effect profile including worsening mood/agitation that warrant urgent follow-up. Return to clinic in 3-4 weeks for follow-up and annual wellness exam/labs. 04/20/2024 COPD exacerbation (ICD-10 - J44.1) Discussed COPD exacerbation, expected course and return precautions. Treat with steroids and antibiotics as listed below. Continue Combivent inhaler. 07/02/2024 Anxiety (ICD-10 - F41.9) 12/29/2023 Sciatica, left side (ICD-10 - M54.32) Injection as noted. I think she would benefit from SI joint evaluation or even lumbar facet injections versus comprehensive pain care evaluation. This referral will be made 07/02/2024 Hospital discharge follow-up (ICD-10 - Z09) Personally reviewed H&P and discharge summary as available from hospital discharge documentation. Reviewed pertinent labs and test done in the hospital. Personally reconciled medication. 07/02/2024 Dysuria (ICD-10 - R30.0) Trial of Pyridium. Probable post cath issues 07/02/2024 Colostomy present (ICD-10 - Z93.3) Stable. Continue follow-up Plan Of Treatment Pending Test Test Name Order Date MRI : Lumbosacral Spine 06/17/2006 MRI : Lumbosacral Spine 05/06/2006 CT Scan : Abdomen, with contrast 007 CT Scan : Abdomen, with contrast 007 N-cbc 10/13/2006 MRI : Coccyx 06/17/2006 Mammogram : Bilateral 12/08/2021 M-Diarrhea Panel, PCR 01/25/2022 M-Diarrhea Panel, PCR 12/31/2022 Physical Therapy Eval and Treat 10/29/19 Next Appt Details Provider Name:Champ Quiroz, 08/20/2024 03:15:00 PM, [address], [place], [address], Insurance Providers Payer Name Payer Address Payer Phone Subscriber Number Group Number Insured Name Patient Relationship to Insured Coverage Start Date Coverage End Date [employer] [address] [address] [place] [address] [id number] Rere Reese Self - patient is the insured Medications Administered Medication Instructions Date of Administration Dosage Notes Cyanocobalamin/B-12 Pt's Own Medication 12/16/2021 1 mL Cyanocobalamin/B-12 Pt's Own Medication 12/24/2021 1 mL Cyanocobalamin/B-12 Pt's Own Medication 01/06/2022 1 mL lot:[id number] exp: June 2023 Cyanocobalamin/B-12 Pt's Own Medication 04/01/2022 1 mL Dexamethasone 4mg Injection 10/28/2022 4 mg Dexamethasone 4mg Injection 12/29/2023 4 mg Dexamethasone 4mg Injection 04/20/2024 4 mg TRIAMCINOLONE 03/15/2022 1 mL Medical (General) History Medical History History ICD Code hormone replacement therapy depression copd asthma smoker tremors Surgical History Surgery Date(Month/Year) lt rotator cuff 2020 rt hand surgery 01/2023 colon resection 04/30/24 Hospitalization History Reason Date(Month/Year) - heart attach 04/30/2024-06/28/24 [facility] 01/2022
--- OUTSIDE RECORDS SUMMARY | 2024-07-21 18:44 | XMS_ITS | Encounter Summary ---
Author Organization Healthcare Address [address] [place] [address] Care Team Providers Care Gamewell Operator Name Role Phone Pcp, No Primary Care Provider Unavailabl e Encounter Details Date Type Department Care Team (Latest Contact Info) Description 06/15/2024 Travel Social History Tobacco Use Types Packs/Day [...] any time in the past 12 m [facility], were you homeless or living [...] 07/31/2024 9:00 AM EDT Office Visit [facility] General Surgery [address], [address] [place] [address] Lidia Troncoso MD [address] [place] [address] documented as of this encounter Goals Goal [...] documented as of this encounter Care Teams Gamewell Operator Relationship Specialty Start Date End Date Pcp, [place] [address] PCP - General Family Medicine 04/04/24 06/28/24 documented as of this encounter
--- OUTSIDE RECORDS SUMMARY | 2024-07-21 18:44 | XMS_ITS | Encounter Summary ---
Author Organization Healthcare Address [address] [place] [address] Care Team Providers Care Groutman Name Role Phone Pcp, No Primary Care Provider Unavailabl e Encounter Details Date Type Department Care Team (Latest Contact Info) Description 06/18/2024 Travel Social History Tobacco Use Types Packs/Day [...] were you homeless or living in a snf (including now)? No 05/02/2024 Utilities Answer Date [...] Date of Assessment Author No Risk Indicated 06/18/2024 8:00 AM EDT Luca Katz RN * Question Answer Date of Assessment Author 1. Wish to be (Past 1 Month) No 025 8:00 AM EDT Luca Urbano, RN 2. Non-Specific Active Suici erica Thoughts (Past 1 Month) No 06/18/2024 8:00 AM EDT Jeanine Urbano ed, RN 6. Suicidal Behavior (Lifetime) No 8:00 AM EDT Luca Urbano, RN documented as of this encounter Plan of Treatment Upcoming Encounters Date Type Department Care Team (Late st Contact Info) Description 07/31/2024 9:00 AM EDT Office Visit [facility] General Surgery [address], [address] [place] [address] Lidia Troncoso MD [address] [place] [address] documented as of this encounter Goals Goal [...] documented as of this encounter Care Teams Groutman Relationship Specialty Start Date End Date Pcp, [place] [address] PCP - General Family Medicine 04/04/24 06/28/24 documented as of this encounter
--- OUTSIDE RECORDS SUMMARY | 2024-07-21 18:44 | XMS_ITS | Encounter Summary ---
Author Organization Healthcare Address [address] [place] [address] Care Team Providers Care Building Construction Engineer Name Role Phone Pcp, No Primary Care Provider Unavailabl e Encounter Details Date Type Department Care Team (Latest Contact Info) Description 06/14/2024 Travel Social History Tobacco Use Types Packs/Day [...] in the past 12 m [facility], were you homeless or living in a [...] Date of Assessment Author No Risk Indicated 06/14/2024 8:00 PM EDT Lelia Nuñez RN * Question Answer Date of Assessment Author 1. Wish to be (Past 1 Month) No 025 8:00 PM EDT Lelia Nuñez RN 2. Non-Specific Active Suici erica Thoughts (Past 1 Month) No 06/14/2024 8:00 PM EDT Meng Nuñez RN 6. Suicidal Behavior (Lifetime) No 8:00 PM EDT Lelia Nuñez RN documented as of this encounter Plan of Treatment Upcoming Encounters Date Type Department Care Team (Late st Contact Info) Description 07/31/2024 9:00 AM EDT Office Visit [facility] General Surgery [address], [address] [place] [address] Lidia Troncoso MD [address] [place] [address] documented as of this encounter Goals Goal [...] documented as of this encounter Care Teams Building Construction Engineer Relationship Specialty Start Date End Date Pcp, [place] [address] PCP - General Family Medicine 04/04/24 06/28/24 documented as of this encounter
--- OUTSIDE RECORDS SUMMARY | 2024-07-21 18:44 | XMS_ITS | Encounter Summary ---
Author Organization Healthcare Address [address] [place] [address] Care Team Providers Care Restaurant Hostess Name Role Phone Pcp, No Primary Care Provider Unavailabl e Encounter Details Date Type Department Care Team (Latest Contact Info) Description 06/19/2024 Travel Social History Tobacco Use Types Packs/Day [...] any time in the past 12 m [facility], were you homeless or [...] Dawson RN documented as of this encounter Plan of Treatment Upcoming Encounters Date Type Department Care Team (Late st Contact Info) Description 07/31/2024 9:00 AM EDT Office Visit [facility] General Surgery [address], [address] [place] [address] Lidia Troncoso MD [address] [place] [address] documented as of this encounter Goals Goal [...] documented as of this encounter Care Teams Restaurant Hostess Relationship Specialty Start Date End Date Pcp, [place] [address] PCP - General Family Medicine 04/04/24 06/28/24 documented as of this encounter
--- OUTSIDE RECORDS SUMMARY | 2024-07-21 18:44 | XMS_ITS | Encounter Summary ---
Author Organization Healthcare Address [address] [place] [address] Care Team Providers Care Slots Manager Name Role Phone Pcp, No Primary Care Provider Unavailabl e Encounter Details Date Type Department Care Team (Latest Contact Info) Description 06/20/2024 Travel Social History Tobacco Use Types Packs/Day [...] any time in the past 12 m [facility], were you homeless or living in a [...] Description 07/31/2024 9:00 AM EDT Office Visit [facility] General Surgery [address], [address] [place] [address] Lidia Troncoso MD [address] [place] [address] documented as of this encounter Goals Goal [...] documented as of this encounter Care Teams Slots Manager Relationship Specialty Start Date End Date Pcp, [place] [address] PCP - General Family Medicine 04/04/24 06/28/24 documented as of this encounter
--- OUTSIDE RECORDS SUMMARY | 2024-07-21 18:44 | XMS_ITS | Encounter Summary ---
Author Organization Healthcare Address [address] [place] [address] Care Team Providers Care Ice Scraper Name Role Phone Pcp, No Primary Care Provider Unavailabl e Encounter Details Date Type Department Care Team (Latest Contact Info) Description 06/17/2024 Travel Social History Tobacco Use Types Packs/Day [...] any time in the past 12 m [facility], were you homeless or living in a retirement (including now)? No 05/02/2024 Utilities Answer Date [...] Date of Assessment Author No Risk Indicated 06/17/2024 8:00 AM EDT Elisa Carvajal RN * Question Answer Date of Assessment Author 1. Wish to be (Past 1 Month) No 025 8:00 AM EDT Elisa Carvajal RN 2. Non-Specific Active Suici erica Thoughts (Past 1 Month) No 06/17/2024 8:00 AM EDT Jada Carvajal RN 6. Suicidal Behavior (Lifetime) No 8:00 AM EDT Elisa Carvajal RN documented as of this encounter Plan of Treatment Upcoming Encounters Date Type Department Care Team (Late st Contact Info) Description 07/31/2024 9:00 AM EDT Office Visit [facility] General Surgery [address], [address] [place] [address] Lidia Troncoso MD [address] [place] [address] documented as of this encounter Goals Goal [...] documented as of this encounter Care Teams Ice Scraper Relationship Specialty Start Date End Date Pcp, [place] [address] PCP - General Family Medicine 04/04/24 06/28/24 documented as of this encounter
--- NOTE | 2024-07-21 18:48 | CT_ITS ---
PROCEDURE INFORMATION: Exam: CTA Abdomen and Pelvis With Contrast Exam date and time: 07/21/2024 7:18 PM Age: 53 years old Clinical indication: Other: History of ischemic bowel and resection; Abd pain TECHNIQUE: Imaging protocol: Computed tomographic angiography of the abdomen and pelvis with contrast. Exam focused on the arteries. 3D rendering (Not supervised by radiologist): MIP and/or 3D reconstructed images were created by the technologist. Radiation optimization: All CT scans at this facility use at least one of these dose optimization techniques: automated exposure control; mA and/or kV adjustment per patient size (includes targeted exams where dose is matched to clinical indication); or iterative reconstruction. Contrast material: ISOVUE 370; Contrast volume: 80 ml; Contrast route: INTRAVENOUS (IV); COMPARISON: CT ABDOMEN PELVIS W CON 01/29/2022 11:32 AM FINDINGS: Aorta: No aortic aneurysm. No aortic dissection. Atherosclerotic calcification. Celiac trunk and mesenteric arteries: Ostial atherosclerotic calcification of celiac artery. No occlusion or high-grade obstruction. Renal arteries: No occlusion or significant stenosis. Right iliac arteries: No occlusion or significant stenosis. Atherosclerotic calcification. Left iliac arteries: No occlusion or significant stenosis. Atherosclerotic calcification. Liver: Fatty infiltration. No mass. Gallbladder and biliary ducts: Surgically absent gallbladder. No biliary ductal dilatation. Pancreas: Unremarkable. No mass. No ductal dilation. Spleen: Unremarkable. No splenomegaly. Adrenal glands: Unremarkable. No mass. Kidneys and ureters: Unremarkable. No solid mass. No nephroureterolithiasis. No hydronephrosis. Stomach and bowel: Long segment mid to distal ileal wall thickening, mucosal enhancement, perienteric fat stranding. Luis's pouch colonic wall thickening and mucosal enhancement. Unremarkable right lower quadrant ostomy. Left lower quadrant ostomy. Nonobstructive pattern. Appendix: No evidence of appendicitis. Intraperitoneal space: Unremarkable. No free air. No significant fluid collection. Lymph nodes: Reactive retroperitoneal/mesenteric lymph nodes without lymphadenopathy. Largest lymph node measures 1.9 x 1.0 cm in mesenteric. Despite size, favoring reactive changes as well. Urinary bladder: Urinary bladder wall thickening and pericystic fat stranding. Reproductive: Unremarkable as visualized. Bones/joints: No acute fracture. Soft tissues: Unremarkable. IMPRESSION: 1. Unremarkable CTA without source of active hemorrhage identified. 2. 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 Luis's pouchitis. 3. Cystitis versus reactive changes from adjacent enteritis and pouchitis. 4. Fatty liver infiltration.
--- OUTSIDE RECORDS SUMMARY | 2024-07-21 18:49 | XMS_ITS | Encounter Summary ---
Author Organization Healthcare Address [address] [place] [address] Care Team Providers Care Manager Gyn Name Role Phone Pcp, No Primary Care Provider Unavailabl e Encounter Details Date Type Department Care Team (Latest Contact Info) Description 06/04/2024 Travel Social History Tobacco Use Types Packs/Day [...] any time in the past 12 m [facility], were you homeless or living in [...] Date of Assessment Author No Risk Indicated 06/04/2024 8:00 AM EDT Suze Pham * Question Answer Date of Assessment Author 1. Wish to be (Past 1 Month) No 025 8:00 AM EDT Suze Montez 2. Non-Specific Active Suici erica Thoughts (Past 1 Month) No 06/04/2024 8:00 AM EDT Joelle Montez 6. Suicidal Behavior (Lifetime) No 8:00 AM EDT Suze Montez documented as of this encounter Plan of Treatment Upcoming Encounters Date Type Department Care Team (Late st Contact Info) Description 07/31/2024 9:00 AM EDT Office Visit [facility] General Surgery [address], [address] [place] [address] Lidia Troncoso MD [address] [place] [address] documented as of this encounter Goals Goal [...] documented as of this encounter Care Teams Manager Gyn Relationship Specialty Start Date End Date Pcp, [place] [address] PCP - General Family Medicine 04/04/24 06/28/24 documented as of this encounter
--- OUTSIDE RECORDS SUMMARY | 2024-07-21 18:49 | XMS_ITS | Encounter Summary ---
Author Organization Healthcare Address [address] [place] [address] Care Team Providers Care Painter Spring Name Role Phone Pcp, No Primary Care Provider Unavailabl e Encounter Details Date Type Department Care Team (Latest Contact Info) Description 06/01/2024 Travel Social History Tobacco Use Types Packs/Day [...] time in the past 12 m [facility], were you homeless or living in a [place] [facility] [place] facility (including now)? No 05/02/2024 Utilities Answer Date [...] 07/31/2024 9:00 AM EDT Office Visit [facility] General Surgery [address], [address] [place] [address] Lidia Troncoso MD [address] [place] [address] documented as of this encounter Goals Goal [...] documented as of this encounter Care Teams Painter Spring Relationship Specialty Start Date End Date Pcp, [place] [address] PCP - General Family Medicine 04/04/24 06/28/24 documented as of this encounter
--- OUTSIDE RECORDS SUMMARY | 2024-07-21 18:49 | XMS_ITS | Encounter Summary ---
Author Organization Healthcare Address [address] [place] [address] Care Team Providers Care Laboratory Inspector Name Role Phone Pcp, No Primary Care Provider Unavailabl e Encounter Details Date Type Department Care Team (Latest Contact Info) Description 05/31/2024 Travel Social History Tobacco Use Types Packs/Day [...] any time in the past 12 m [facility], were you homeless or living in [...] Date of Assessment Author No Risk Indicated 05/31/2024 8:00 AM PITOT Alissa Brothers RN * Question Answer Date of Assessment Author 1. Wish to be (Past 1 Month) No 05/31/2024 8:00 AM PITOT Alissa Brothers, RN 2. Non-Specific Active Suici erica Thoughts (Past 1 Month) No 05/31/2024 8:00 AM Dulce Rosa, RN 6. Suicidal Behavior (Lifetime) No 8:00 AM Alissa Rosa RN documented as of this encounter Plan of Treatment Upcoming Encounters Date Type Department Care Team (Late st Contact Info) Description 07/31/2024 9:00 AM EDT Office Visit [facility] General Surgery [address], [address] [place] [address] Lidia Troncoso MD [address] [place] [address] documented as of this encounter Goals Goal [...] documented as of this encounter Care Teams Laboratory Inspector Relationship Specialty Start Date End Date Pcp, [place] [address] PCP - General Family Medicine 04/04/24 06/28/24 documented as of this encounter
--- OUTSIDE RECORDS SUMMARY | 2024-07-21 18:49 | XMS_ITS | Encounter Summary ---
Author Organization Healthcare Address [address] [place] [address] Care Team Providers Care Stage Hand Name Role Phone Pcp, No Primary Care Provider Champ Butler MD Primary Care Provider + [phone] Encounter Details Date Type Department Care Team (Late st Contact Info) Description 05/29/2024 Results Follow-Up Colorectal Surgery [address] [place] [address] Lidia Troncoso MD [address] [place] [address] Social History Tobacco Use Types Packs/Day Years [...] Author No Risk Indicated 05/31/2024 8:00 AM Alissa Rosa RN * Question Answer Date of Assessment Author 1. Wish to be (Past 1 Month) No 05/31/2024 8:00 AM Alissa Rosa RN 2. Non-Specific Active Suici erica Thoughts (Past 1 Month) No 05/31/2024 8:00 AM Dulce Rosa RN 6. Suicidal Behavior (Lifetime) No 8:00 AM EDT Deneen, Alissa M, RN documented as of this encounter Plan of Treatment Upcoming Encounters Date Type Department Care Team (Late st Contact Info) Description 07/31/2024 9:00 AM EDT Office Visit [facility] General Surgery [address], [address] [place] [address] Lidia Troncoso MD [address] [place] [address] documented as of this encounter [...] documented as of this encounter Care Teams Stage Hand Relationship Specialty Start Date End Date Pcp, [place] [address] PCP - General Family Medicine 04/04/24 06/28/24 Champ Quiroz MD [address] [place] [address] PCP - General Internal Medicine 06/29/24 documented as of this encounter
--- OUTSIDE RECORDS SUMMARY | 2024-07-21 18:49 | XMS_ITS | Encounter Summary ---
Author Organization Healthcare Address [address] [place] [address] Care Team Providers Care Wrapper Hands Sprayer Name Role Phone Pcp, No Primary Care Provider Unavailabl e Encounter Details Date Type Department Care Team (Latest Contact Info) Description 05/27/2024 Travel Social History Tobacco Use Types Packs/Day [...] any time in the past 12 m [facility], were you homeless or living in a custodial (including now)? No 05/02/2024 Utilities Answer Date [...] Date of Assessment Author No Risk Indicated 05/27/2024 8:00 PM EDT Yesenia Tello RN * Question Answer Date of Assessment Author 1. Wish to be (Past 1 Month) No 05/27/2024 8:00 PM EDT Yesenia Tello RN 2. Non-Specific Active Suici erica Thoughts (Past 1 Month) No 05/27/2024 8:00 PM EDT Ricci Tello RN 6. Suicidal Behavior (Lifetime) No 8:00 PM EDT Yesenia Tello RN documented as of this encounter Plan of Treatment Upcoming Encounters Date Type Department Care Team (Late st Contact Info) Description 07/31/2024 9:00 AM EDT Office Visit [facility] General Surgery [address], [address] [place] [address] Lidia Troncoso MD [address] [place] [address] documented as of this encounter Goals Goal [...] documented as of this encounter Care Teams Wrapper Hands Sprayer Relationship Specialty Start Date End Date Pcp, [place] [address] PCP - General Family Medicine 04/04/24 06/28/24 documented as of this encounter
--- OUTSIDE RECORDS SUMMARY | 2024-07-21 18:49 | XMS_ITS | Encounter Summary ---
Author Organization Healthcare Address [address] [place] [address] Care Team Providers Care Career Development Counselor Name Role Phone Pcp, No Primary Care Provider Unavailabl e Encounter Details Date Type Department Care Team (Latest Contact Info) Description 05/25/2024 Travel Social History Tobacco Use Types Packs/Day [...] in the past 12 m [facility], were you homeless or living in a longterm (including now)? No 05/02/2024 Utilities Answer Date [...] Date of Assessment Author No Risk Indicated 05/25/2024 8:00 PM EDT Fany Laguna * Question Answer Date of Assessment Author 1. Wish to be (Past 1 Month) No 025 8:00 PM EDT Fany Laguna 2. Non-Specific Active Suici erica Thoughts (Past 1 Month) No 05/25/2024 8:00 PM EDT Fany Laguna 6. Suicidal Behavior (Lifetime) No 5 8:00 PM EDT Fany Laguna documented as of this encounter Plan of Treatment Upcoming Encounters Date Type Department Care Team (Late st Contact Info) Description 07/31/2024 9:00 AM EDT Office Visit [facility] General Surgery [address], [address] [place] [address] Lidia Troncoso MD [address] [place] [address] documented as of this encounter [...] documented as of this encounter Care Teams Career Development Counselor Relationship Specialty Start Date End Date Pcp, [place] [address] PCP - General Family Medicine 04/04/24 06/28/24 documented as of this encounter
--- OUTSIDE RECORDS SUMMARY | 2024-07-21 18:49 | XMS_ITS | Encounter Summary ---
Author Organization Healthcare Address [address] [place] [address] Care Team Providers Care Tool Builder Name Role Phone Pcp, No Primary Care Provider Unavailabl e Encounter Details Date Type Department Care Team (Latest Contact Info) Description 05/29/2024 Travel Social History Tobacco Use Types Packs/Day [...] any time in the past 12 m [facility], were you homeless or living in [...] Description 07/31/2024 9:00 AM EDT Office Visit [facility] General Surgery [address], [address] [place] [address] Lidia Troncoso MD [address] [place] [address] documented as of this encounter Goals Goal [...] documented as of this encounter Care Teams Tool Builder Relationship Specialty Start Date End Date Pcp, [place] [address] PCP - General Family Medicine 04/04/24 06/28/24 documented as of this encounter
--- OUTSIDE RECORDS SUMMARY | 2024-07-21 18:49 | XMS_ITS | Data Portability ---
Author Organization [facility] [place] Address [address] [place] [address] Assessment No assessment recorded. Plan of Treatment [...] Organization Details Recorded Time Shoulder Surgery completed [facility] 12/10/2021 16:40:07 section completed [facility] 12/10/2021 16:40:17 Imaging Results None recorded. [...] Updated DateTime 2 162.56 cm 23.5 kg/m2 01822.4 4 g 96.9 [degF] 97 % 97 % 85 /min 112 mm[Hg] 60 mm[Hg] Corinne Tang [facility] [place] 13:30:57 Social History Question Answer Notes LastModified by Organizat ion Details LastModified Time Tobacco Smoking Status Current Every Day Smoker Corinne Tang [facility], [facility] [place] 12/10/2021 16:39:59 How Much Tobacco Do You [...] SNOMED-CT Code Diagnosis ICD10 Code Diagnosis Note [id number] Juany Mathews MD [facility],[place] [address] 12/14/2021 13:22:57 12/14/2021 15:21:02 Essential tremor 546898818 G25.0 tremor has been under relatively good control with combinatio n of primidone and Inderal, we will watch her hair loss closely, it may be related to her recent COVID infection but if it is related to Inderal in may need to consider gradually weaning this off. 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 Would like to continue this for now. Health Concerns Section Related Observation LastModified by Organization Detai ls LastModified Time None Recorded Concern Status LastModified by Organization Details LastModified Time None Recorded Advance Directives Directive None Recorded Payers Insurance Date Sequence Insurance Name Policy Number Policy Doll Covered Member ID Doll Member ID Guarantor Name 09/03/2023 1 [facility] (MEDICAID REPLACEMENT - HMO) Rere Reese [id number] Rere Reese Notes Date Note Type Note [...] mg twice a day. Juany Mathews MD [address] [place] [address], [address], [facility] 12/14/2021 15:11:09 OBGyn Episode No OBEpisode recorded.
--- OUTSIDE RECORDS SUMMARY | 2024-07-21 18:49 | XMS_ITS | Encounter Summary ---
Author Organization Healthcare Address [address] [place] [address] Care Team Providers Care Wax Pot Tender Name Role Phone Pcp, No Primary Care Provider Unavailabl e Encounter Details Date Type Department Care Team (Latest Contact Info) Description 05/26/2024 Travel Social History Tobacco Use Types Packs/Day [...] any time in the past 12 m [facility], were you homeless or living [...] Description 07/31/2024 9:00 AM EDT Office Visit [facility] General Surgery [address], [address] [place] [address] Lidia Troncoso MD [address] [place] [address] documented as of this encounter Goals Goal [...] documented as of this encounter Care Teams Wax Pot Tender Relationship Specialty Start Date End Date Pcp, [place] [address] PCP - General Family Medicine 04/04/24 06/28/24 documented as of this encounter
--- OUTSIDE RECORDS SUMMARY | 2024-07-21 18:49 | XMS_ITS | Encounter Summary ---
Author Organization Healthcare Address [address] [place] [address] Care Team Providers Care Auditor Internal Name Role Phone Pcp, No Primary Care Provider Unavailabl e Encounter Details Date Type Department Care Team (Latest Contact Info) Description 05/28/2024 Travel Social History Tobacco Use Types Packs/Day [...] any time in the past 12 m [facility], were you homeless or living [...] Description 07/31/2024 9:00 AM EDT Office Visit [facility] General Surgery [address], [address] [place] [address] Lidia Troncoso MD [address] [place] [address] documented as of this encounter Goals Goal [...] documented as of this encounter Care Teams Auditor Internal Relationship Specialty Start Date End Date Pcp, [place] [address] PCP - General Family Medicine 04/04/24 06/28/24 documented as of this encounter
--- OUTSIDE RECORDS SUMMARY | 2024-07-21 18:49 | XMS_ITS | Encounter Summary ---
Author Organization Healthcare Address [address] [place] [address] Care Team Providers Care Counter Intelligence Name Role Phone Pcp, No Primary Care Provider Unavailabl e Encounter Details Date Type Department Care Team (Latest Contact Info) Description 05/30/2024 Travel Social History Tobacco Use Types Packs/Day [...] Date of Assessment Author No Risk Indicated 05/30/2024 8:00 AM EDT Amarilis Hammond * Question Answer Date of Assessment Author 1. Wish to be (Past 1 Month) No 025 8:00 AM EDT Amarilis Hammond 2. Non-Specific Active Suici erica Thoughts (Past 1 Month) No 05/30/2024 8:00 AM EDT Orlando Hammond 6. Suicidal Behavior (Lifetime) No 5 8:00 AM EDT Amarilis Hammond documented as of this encounter Plan of Treatment Upcoming Encounters Date Type Department Care Team (Late st Contact Info) Description 07/31/2024 9:00 AM EDT Office Visit [facility] General Surgery [address], [address] [place] [address] Lidia Troncoso MD [address] [place] [address] documented as of this encounter [...] documented as of this encounter Care Teams Counter Intelligence Relationship Specialty Start Date End Date Pcp, [place] [address] PCP - General Family Medicine 04/04/24 06/28/24 documented as of this encounter
--- NOTE | 2024-07-21 18:50 | ECG_ITS ---
APPROVED REPORT Exam: Resting ECG HR:127 bpm ECG Measurements Heart Rate 127 AXES CO 115 P 75 QRSd 106 QRS 86 QT 374 T 70 QTc 449 Conclusion SINUS TACHYCARDIA WITH SHORT CO INTERVAL INCOMPLETE RIGHT BUNDLE BRANCH BLOCK [90+ ms QRS DURATION, TERMINAL R IN V1/V2, 40+ ms S IN I/aVL/V4/V5/V6] NONSPECIFIC ST & T-WAVE ABNORMALITY ABNORMAL RHYTHM ECG UNCONFIRMED REPORT Electronically signed by : Gregg Fisher, 07/21/2024 23:21:14
--- NOTE | 2024-07-21 18:53 | HMH.EDGENADL ---
Discharge Plan Disposition Patient Disposition: Admitted Prescriptions Prescriptions: No Action primidone 50 mg tablet 50 mg PO BID Patient Comments: TAKE 1 TABLET BY MOUTH TWICE DAILY FOR 90 DAYS citalopram 40 mg tablet 40 mg PO DAILY Patient Comments: TAKE 1 TABLET BY MOUTH ONCE DAILY FOR 90 DAYS propranolol 20 mg tablet 20 mg PO BID Patient Comments: TAKE 1 TABLET BY MOUTH TWICE DAILY hydroxyzine HCl 10 mg tablet 10 mg PO Q8HP PRN (Reason: Anxiety) Patient Comments: TAKE 1 TABLET BY MOUTH EVERY 8 HOURS NEEDED FOR 15 DAYS bupropion HCl 300 mg tablet extended release 24 hr 300 mg PO DAILY Patient Comments: TAKE 1 TABLET BY MOUTH EVERY 24 HOURS Combivent Respimat 20-100 mcg/actuation mist 1 puff INHALATION QID Patient Comments: INHALE 1 PUFF BY MOUTH 4 TIMES DAILY Referrals Follow up/Referrals: Champ Quiroz MD [Primary Care Provider, Internal Medicine] - See instructions Clinical Impressions Clinical Impression: Pouchitis, Lower abdominal pain, Anxiety, Sepsis Instructions Patient Instructions: DI for Acute Abdominal Pain Print Language Print Language: Mongolian Discharge ED Provider: Jaime Fisher General Adult HPI General Chief complaint: Abdominal Pain Stated complaint: Abdominal Pain Time Seen by Provider: 07/21/24 18:39 Mode of Arrival: Ambulatory Source of Information: Patient Description of Symptoms (Recalled from ER Triage Doc. by RN): pt c/o lower abd pain that is sharp in nature and 7/10. pt also c/o burning in her hips bilaterally, nausea and pain in her vaginal/pelvic region. pt reports this all worsened today. However, this has been ongoing some since she was d/c from in June. pt denies CP or urinary symptoms. pt reports she had open heart surgery, partial colon resection and a colostomy. pt is shaking, crying and extremely anxious. pt has multiple life stressors at this time. Once pt started crying harder she started having scant R sided epistaxis. History of Present Illness HPI narrative: Patient is a 53-year-old female presenting today with multiple complaints including severe anxiety stress but as well as severe lower abdominal pain. She has a hard time remembering the exact facts but states that in April she was diagnosed with a heart attack and subsequently developed a bowel where she had a colectomy and ostomy. Since that time she has been having severe anxiety stress and emotional reaction to this and crying. She states it took 2 weeks before she would even look at her abdomen. Today she has significant lower abdominal pain. This been ongoing for several days. She states that she is just very concerned that she is going to be sick again which is why she is crying. Denies any chest pain shortness of breath etc. Related Data Home Medications ?Medication ?Instructions ?Recorded ?Confirmed citalopram 40 mg tablet 40 mg PO DAILY 12/23/23 05/01/24 primidone 50 mg tablet 50 mg PO BID 12/23/23 05/01/24 propranolol 20 mg tablet 20 mg PO BID 12/23/23 05/01/24 bupropion HCl 300 mg 24 hr tablet, 300 mg PO DAILY 05/01/24 05/01/24 extended release hydroxyzine HCl 10 mg tablet 10 mg PO Q8HP PRN Anxiety 05/01/24 05/01/24 ipratropium 20 mcg-albuterol 100 1 puff inhalation QID 05/01/24 05/01/24 mcg/actuation mist for inhalation (Combivent Respimat) Allergies Allergy/AdvReac Type Severity Reaction Status Date / Time oxycodone (From Percocet) AdvReac Vomiting Verified 07/21/24 18:47 PFSH PFS Disclaimer: The information contained in this section may have been updated after the patient was seen, as this information can be updated by other users. Medical History Depression Anxiety History of pleurisy Hemorrhoid Essential tremor Endometriosis Surgical History History of hand surgery History of Hx of cholecystectomy H/O rotator cuff surgery History of hysterectomy Family History Other Essential tremor Family history of heart disease Social History Smoking Status: Former smoker tobacco type: cigarettes packs per day: 1 alcohol intake: never substance use type: denies use current occupational status: unemployed and retired Travel in the last 8 weeks?: Inside the [place] household members: family housing: house caffeine: Yes Have you lived/traveled outside US in past 30 days?: No Contact w/someone who lives/traveled outside US past 30 days?: No Exposure to someone with infectious disease in past 14 days?: No Do you have a fever (greater than 100.4 F or 38 C)?: No Have you tested positive for COVID-19?: No Exposed to someone with COVID-19 in past 14 days?: No Do you have a sore throat?: No Do you have a cough?: No Do you have any weakness?: No Do you have any diarrhea?: No Are you experiencing any unusual bleeding?: No Do you have any muscle aches/pain?: No Do you have any abdominal pain?: Yes Are you experiencing loss of taste or smell?: No Other Medical History Have you received the Flu Vaccine for this season: No Have you received the Pneumonia Vaccine: No ROS Obtained: Yes All systems reviewed & no additional complaints except as documented Physical Exam General General appearance: anxious (And crying) Respiratory Respiratory exam: Present normal lung sounds bilaterally Cardiovascular Cardiovascular exam: Present regular rate Abdominal Exam Abdominal exam: Present soft and other (Midline incisional scar from her sternum through the superior aspect of her pelvis that is well-healing there is an ostomy that is draining appropriate stool she has diffuse and extensive left-sided lower abdominal tenderness with some rebound and guarding) Neurological Exam Neurological exam: Present alert Medical Decision Making Medical Records Screening: Per USPSTF and CDC recommendations, given the prevalence of disease in our region, it is our hospital?s policy to screen for HIV and viral Hepatitis for all patients aged 18 and over and those with ongoing risk factors. Supa Inquiry Pt receiving controlled substance: No Vital Signs: 07/21/24 18:38 07/21/24 19:30 07/21/24 20:00 Temperature 98.3 F Temperature Source Oral Pulse Rate 120 H 122 H Pulse Rate [Left] 125 H Respiratory Rate 14 Blood Pressure 141/82 H 141/86 H Blood Pressure [Right Arm] 153/98 H Blood Pressure Mean [Right Arm] 116 Blood Pressure Source [Right Arm] Automatic Cuff Blood Pressure Position [Right Arm] Sitting 02 Sat by Pulse Oximetry 99 97 97 Oxygen Delivery Method Room Air 07/21/24 20:30 Temperature Temperature Source Pulse Rate 121 H Pulse Rate [Left] Respiratory Rate 11 L Blood Pressure 132/85 Blood Pressure [Right Arm] Blood Pressure Mean [Right Arm] Blood Pressure Source [Right Arm] Blood Pressure Position [Right Arm] 02 Sat by Pulse Oximetry 94 L Oxygen Delivery Method Lab Data Lab results reviewed: Yes I reviewed the patient's lab results. Lab Results 07/21/24 18:32: Urine Color Yellow, Urine Appearance Clear, Urine pH 7.5, Ur Specific [place] 1.015, Urine Protein Negative, Urine Glucose (UA) Negative, Urine Ketones Negative, Urine Blood Negative, Urine Nitrate Negative, Urine Bilirubin Negative, Urine Urobilinogen 0.2, Ur Leukocyte Esterase Negative, Urine RBC 3-5, Urine WBC 5-10, Ur Squamous Epith Cells 3-5, Urine Bacteria 1+, Urine Mucus 2+ 07/21/24 18:39: WBC 33.0 H*, RBC 4.05 L, Hgb 12.0 L, Hct 36.5 L, MCV 90.1, MCH 29.6, MCHC 32.9, RDW 14.9, Plt Count 605 H, MPV 9.2, Neut % (Auto) 75.8, Lymph % (Auto) 15.9, [place] % (Auto) 6.2, Eos % (Auto) 0.8, Baso % (Auto) 0.6, Neut # (Auto) 25.0 H, Lymph # (Auto) 5.2 H, [place] # (Auto) 2.0 H, Eos # (Auto) 0.3, Baso # (Auto) 0.2, Total Counted 100, Neutrophils % (Manual) 73, Lymphocytes % (Manual) 19, Monocytes % (Manual) 6, Eosinophils % (Manual) 2, Platelet Estimate Marked increase, RBC Morphology Not Reportable, Stomatocytes 1+, Sodium 134 L, Potassium 3.5, Chloride 101, Carbon Dioxide 28, Anion Gap 8.5, BUN 7, Creatinine 0.60, Estimated Creat Clear 90, Estimated GFR 104, Est GFR ( Amer) 126, Glucose 109 H, Calcium 8.2 L, Total Bilirubin 0.5, AST 81 H, ALT 53, Alkaline Phosphatase 154 H, Troponin I < 0.01, Total Protein 6.7, Albumin 3.1 L, Globulin 3.6 H, Albumin/Globulin Ratio 0.9 L, Lipase 45 07/21/24 19:08: Lactate 2.6 H 07/21/24 18:39 07/21/24 18:39 Orders (Tests/Meds): ED MEDICATIONS Generic Name Dose Route Start Last Admin Trade Name Freq PRN Reason Stop Dose Admin Lactated Ringer's 1,370 mls @ 685 mls/hr 07/21/24 20:23 07/21/24 20:34 Lactated Ringer's 1000 Ml Bag 30 ml/kg infuse over 2 hr (1370 ml) 07/21/24 22:22 685 mls/hr IV Administration .Q2H ONE Discontinued Medications Generic Name Dose Route Start Last Admin Trade Name Esperanza PRN Reason Stop Dose Admin Acetaminophen 1,000 mg 07/21/24 20:23 07/21/24 20:32 Acetaminophen 1,000mg/100ml Vial IV 07/21/24 20:24 1,000 mg ONCE ONE Administration Lactated Ringer's 1,000 mls @ 999 mls/hr 07/21/24 19:00 07/21/24 18:56 Lactated Ringer's 1000 Ml Bag IV 07/21/24 20:00 999 mls/hr .Q1H1M LINDA Administration Piperacillin Sod/Tazobactam 50 mls @ 100 mls/hr 07/21/24 20:23 07/21/24 20:34 Sod 3.375 gm/ Sodium Chloride IV 07/21/24 20:52 100 mls/hr ONCE ONE Administration Iopamidol 80 ml 07/21/24 19:25 07/21/24 19:26 Iopamidol-370 (76%);100ml Bottle IV 07/21/24 19:26 80 ml ONCE ONE Administration Morphine Sulfate 4 mg 07/21/24 18:49 07/21/24 18:56 Morphine 4mg/Ml Syringe IV 07/21/24 18:50 4 mg ONCE ONE Administration Morphine Sulfate 4 mg 07/21/24 20:23 07/21/24 20:33 Morphine 4mg/Ml Syringe IV 07/21/24 20:24 4 mg ONCE ONE Administration Ondansetron HCl 4 mg 07/21/24 18:49 07/21/24 18:55 Ondansetron 4mg/2ml Vial IV 07/21/24 18:50 4 mg ONCE ONE Administration Sodium Chloride 50 ml 07/21/24 19:25 07/21/24 19:26 0.9 % Sodium Chloride 50 Ml Vial IV 07/21/24 19:26 50 ml ONCE ONE Administration Sodium Chloride 10 ml 07/21/24 19:25 07/21/24 19:26 Sodium Chloride 0.9% 10ml Syr (Rad Only) IV 07/21/24 19:26 10 ml ONCE ONE Administration ORDERS Category Date Time Status CT angio abdomen pelvis Stat Cat Scan 07/21/24 18:48 Completed CBC w/Auto Diff [Complete Blood Count Auto Diff] Stat Lab 07/21/24 18:39 Completed CMP [Comprehensive Metabolic Panel] Stat Lab 07/21/24 18:39 Completed Lactic Acid Stat Lab 07/21/24 19:08 Completed Lipase Stat Lab 07/21/24 18:39 Completed Trop I [Troponin I] Stat Lab 07/21/24 18:39 Completed Troponin I Q3H Lab 07/21/24 22:00 Ordered Troponin I Q3H Lab 07/22/24 01:00 Ordered UA [Urinalysis and Microscopic] Stat Lab 07/21/24 18:32 Completed Blood Culture Stat Micro 07/21/24 20:18 Received Tissue Perfus/Sepsis Re-Eval Sepsis Re-Evaluation Performed: Yes Date Performed: 07/21/24 Time Performed: 21:10 Medical Decision Narrative: 53-year-old with above history and physical seems as though she is 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 This is from historical standpoint as I do not have access to her records. She has extensive abdominal tenderness and pain therefore we will get a CT angiography of her abdomen and pelvis. IV fluids pain medicine nausea meds have been administered and will reassess. Reassessment 9:09 PM serial abdominal exams are much improved patient's abdomen is soft now pain is better controlled after IV fluids serial perfusion assessments are also normal. Patient has a significant leukocytosis was tachycardic and borderline febrile she is objectively septic. CT scan was performed which I personally interpreted which shows a significant area of colonic inflammation consistent with pouchitis. No evidence of any perforation or intra-abdominal abscess. Zosyn has been administered no indication for surgical consultation or intervention at the moment. Spoke with hospital medicine who agreed to admit for further evaluation and management. Critical Care Critical Care Time Critical Care Time: Yes Attestation: On 07/21/24, the high probability of a clinically significant, sudden or life threatening deterioration of the following system(s) required my full and direct attention, intervention and personal management. The time I documented below is in addition to time spent performing reported procedures but includes the following listed in this critical care notation. Total Time Total Critical Care Time: 35
[2024-07-21] MEDS: ONDANSETRON 4MG/2ML VIAL 4 MG IV (18:55)
[2024-07-21] MEDS: LACTATED RINGERS 1000ML 1,000 ML 999 ML IV (18:56)
[2024-07-21] MEDS: MORPHINE 4MG/ML SYRINGE 4 MG IV ×2 (18:56→20:33)
[2024-07-21 19:01] LABS: Microscopic, Urine URINE MICROSCOPIC (MICROSCOPIC)
[2024-07-21 19:01] LABS: Basophils # 0.2 K/mm3 (0-0.2); Basophils % 0.6 % (0.1-2.0); Eosinophils # 0.3 Kmm3 (0.0-0.4); Eosinophils % 0.8 % (0.1-12.0); Hematocrit 36.5 % (37.0-47.0); Immature Granulocytes # 0.24 10^3uL; Immature Granulocytes % 0.7 %; Lymphocytes # 5.2 K/mm3 (0.7-4.5); Lymphocytes % 15.9 % (10-50); Mean Corpuscular HGB Conc 32.9 g/dL (31.8-35.4); Mean Corpuscular Hemoglobin 29.6 pg (27.0-31.2); Mean Corpuscular Volume 90.1 fl (81-99); Mean Platelet Volume 9.2 fl (7.4-10.4); Monocytes % 6.2 % (1.7-9.3); Neutrophils % 75.8 % (37.0-80.0); Nucleated Red Blood Cells # 0 10^3/uL; Nucleated Red Blood Cells % 0 %; Platelet Count 605 K/mm3 (142-424); Red Blood Count 4.05 M/mm3 (4.20-5.40); Red Cell Distribution Width 14.9 % (11.5-17.5); Red Cell Distribution Width-SD 49.2 fL
[2024-07-21 19:05] LABS: Appearance,Urine CLEAR (Clear); Bilirubin,Urine Negative (Negative); Blood, Urine Negative (Negative); Color,Urine YELLOW (Yellow); Glucose,Urine (UA) Negative (Negative); Ketones,Urine Negative (Negative); Leukocyte Esterase,Urine Negative (Negative); Nitrate,Urine Negative (Negative); PH,Urine 7.5 (5.0-8.5); Protein,Urine Negative (Negative); Specific Gravity, Urine 1.015 (1.005-1.030); Urobilinogen,Urine 0.2 EU/dl (0.2)
[2024-07-21 19:09] LABS: Alanine Aminotransferase 53 U/L (12-78); Albumin Level 3.1 g/dl (3.5-5.0); Albumin/Globulin Ratio 0.9 (1.1-1.8); Alkaline Phosphatase 154 U/L (38-126); Anion Gap 8.5 mEq/L (5-15); Aspartate Amino Transferase 81 U/L (14-36); Bilirubin,Total 0.5 mg/dl (0.2-1.3); Blood Urea Nitrogen 7 mg/dl (7-17); Calcium 8.2 mg/dl (8.4-10.2); Carbon Dioxide 28 mmol/L (22.0-30.0); Chloride 101 mmol/L (98-107); Creatinine Clearance Estimated 90 mL/min (50-200); Estimated Glomerular Filt Rate 104 ml/min (>60); GFR (African American) 126 ML/MIN (>60); Globulin 3.6 g/dL (1.3-3.2); Glucose 109 mg/dl (74-100); Lipase 45 U/L (23-300); MANUAL DIFFERENTIAL MANUAL DIFFERENTIAL (MANUAL DIFF); Potassium 3.5 mmoL/L (3.5-5.1); Sodium 134 mmol/L (136-145); Total Protein,Serum 6.7 g/dl (6.3-8.2)
[2024-07-21 19:21] LABS: Bacteria,Urine 1+ /lpf; Mucus,Urine 2+ /lpf
[2024-07-21 19:22] LABS: Troponin I < 0.01 ng/ml (0.00-0.034)
[2024-07-21] MEDS: 0.9 % SODIUM CHLORIDE 50 ML VIAL IV (19:26)
[2024-07-21] MEDS: IOPAMIDOL-370 (76%);100ML BOTTLE 80 ML IV (19:26)
[2024-07-21] MEDS: SODIUM CHLORIDE 0.9% 10ML SYR (RAD ONLY) 10 ML IV (19:26)
[2024-07-21 19:33] LABS: Lactic Acid 2.6 mmol/L (0.7-2.1)
[2024-07-21 20:13] LABS: Eosinophils % 2 % (0-3); Lymphocytes % 19 % (10-50); Monocytes % 6 % (2-9); Neutrophils % 73 % (42-76); Total Cells Counted 100
[2024-07-21 20:15] LABS: Stomatocytes 1+
[2024-07-21 20:16] LABS: Platelet Estimate Marked Increase
[2024-07-21] MEDS: ACETAMINOPHEN 1,000MG/100ML VIAL 1000 MG IV (20:32)
[2024-07-21] MEDS: LACTATED RINGERS 1000ML 1,370 ML 685 ML IV (20:34)
[2024-07-21] MEDS: PIPERCILLIN/TAZO 3.375 GM in 0.9 % SODIUM CHLORIDE 50 ML IV (20:34)
--- NOTE | 2024-07-21 21:59 | PC.NURSE ---
report called to Tara KAUFFMAN
--- NOTE | 2024-07-21 22:11 | PC.NURSE ---
Patient arrived to floor via wheelchair from ED at 22:09.
--- NOTE | 2024-07-21 22:55 | PC.NURSE ---
Contacted Dr. Kandy Bentley to restart home meds and pt c/o trouble sleeping. New orders received (see MAR). Pt told this nurse that she is not able to tolerate PO potassium and she has trouble swallowing the pills, contacted Aruna @ [facility] pharmacy to change to IV potassium, heart monitor added at this time.
[2024-07-21 23:13] LABS: Reflex Lactic Add Lactic Reflex
[2024-07-21] MEDS: METOPROLOL TARTRATE 25MG TABLET 25 MG PO (23:18)
[2024-07-21] MEDS: KCl 10mEq/100ml 100 ML 100 MEQ IV (23:18)
[2024-07-21] MEDS: MELATONIN 5MG TABLET 5 MG PO (23:19)
[2024-07-21 23:45] LABS: Lactic Acid Follow Up (RFLX 1) 1.7 mmol/L (0.7-2.1)
[2024-07-21 23:59] LABS: Troponin I < 0.01 ng/ml (0.00-0.034)
[2024-07-22] VITALS (8 sets, daily range): BP systolic 90–120; BP diastolic 55–66; PULSE 70–100; RESP 12–18; TEMP 36.5–36.6; O2SAT 94–98; BMI 23.6
--- NOTE | 2024-07-22 00:03 | PC.NURSE ---
Pt c/o Potassium IV site burning and hurting. This nurse attempted to adjust rate of potassium and NS for comfort however pt continued to c/o of pain and burning to site. Pt requested that this nurse stop the infusion as she could not tolerate it anymore.
--- NOTE | 2024-07-22 00:25 | EXP.HP ---
History of Present Illness *Reason for visit:: Abdominal pain *History of present illness: Patient is a 53-year-old female presenting today with multiple complaints including severe anxiety stress but as well as severe lower abdominal pain. She has a hard time remembering the exact facts but states that in April she was diagnosed with a heart attack and subsequently developed a bowel where she had a colectomy and ostomy. Since that time she has been having severe anxiety stress and emotional reaction to this and crying. She states it took 2 weeks before she would even look at her abdomen. Today she has significant lower abdominal pain. This been ongoing for several days. She states that she is just very concerned that she is going to be sick again which is why she is crying. Denies any chest pain shortness of breath etc. In the emergency department her pain is significantly improved following antibiotics fluids and morphine. She is having mild to moderate pain currently otherwise much better symptomatically. Discussed findings from prior diagnostics and the management that is planned. Patient was agreeable. Family at bedside History independently obtained. Diagnostics and laboratory evaluation independently interpreted. Case discussed with ER physician. Old records reviewed. [facility] Disclaimer: The information contained in this section may have been updated after the patient was seen, as this information can be updated by other users. Medical History Depression Anxiety History of pleurisy Hemorrhoid Essential tremor Endometriosis Surgical History History of hand surgery History of Hx of cholecystectomy H/O rotator cuff surgery History of hysterectomy Family History Other Essential tremor Family history of heart disease Social History (Updated 07/21/24 @ 22:38 by Tara Fung RN) Smoking Status: Former smoker tobacco type: cigarettes packs per day: 1 alcohol intake: never substance use type: denies use current occupational status: unemployed and retired Travel in the last 8 weeks?: Inside the [place] household members: family housing: house caffeine: Yes Have you lived/traveled outside US in past 30 days?: No Contact w/someone who lives/traveled outside US past 30 days?: No Exposure to someone with infectious disease in past 14 days?: No Do you have a fever (greater than 100.4 F or 38 C)?: No Have you tested positive for COVID-19?: No Exposed to someone with COVID-19 in past 14 days?: No Do you have a sore throat?: No Do you have a cough?: No Do you have any weakness?: No Do you have any diarrhea?: No Are you experiencing any unusual bleeding?: No Do you have any muscle aches/pain?: No Do you have any abdominal pain?: Yes Are you experiencing loss of taste or smell?: No Other Medical History Have you received the Flu Vaccine for this season: No Have you received the Pneumonia Vaccine: No Review of Systems Review of Systems Review of systems:: pertinent systems reviewed and negative unless documented below Meds Home Medications and Allergies Home Medications ?Medication ?Instructions ?Recorded ?Confirmed ?Type citalopram 40 mg tablet 40 mg PO DAILY 12/23/23 07/21/24 History primidone 50 mg tablet 50 mg PO BID 12/23/23 07/21/24 History bupropion HCl 300 mg 24 hr tablet, 300 mg PO DAILY 05/01/24 07/21/24 History extended release hydroxyzine HCl 10 mg tablet 10 mg PO Q8HP PRN Anxiety 05/01/24 07/21/24 History ipratropium 20 mcg-albuterol 100 1 puff inhalation NEEDED PRN SOB 05/01/24 07/21/24 History mcg/actuation mist for inhalation (Combivent Respimat) aspirin 81 mg chewable tablet 81 mg PO DAILY 07/21/24 07/21/24 History metoprolol tartrate 25 mg tablet 25 mg PO BID 07/21/24 07/21/24 History rosuvastatin 40 mg tablet 40 mg PO HS 07/21/24 07/21/24 History New Prescriptions to Start Prescriptions: Allergies Allergy/AdvReac Type Severity Reaction Status Date / Time oxycodone (From Percocet) AdvReac Vomiting Verified 07/21/24 18:47 Exam Data for Last 24 hours Vital signs and Labs for Last 24 Hours: Temp Pulse Resp BP Pulse Ox O2 Del Method 99.1 F 110 H 20 116/78 96 Room Air 07/21/24 22:17 07/21/24 23:10 07/21/24 22:17 07/21/24 22:17 07/21/24 22:00 07/21/24 22:40 Laboratory Results - last 24 hr 07/21/24 18:32: Urine Color Yellow, Urine Appearance Clear, Urine pH 7.5, Ur Specific [place] 1.015, Urine Protein Negative, Urine Glucose (UA) Negative, Urine Ketones Negative, Urine Blood Negative, Urine Nitrate Negative, Urine Bilirubin Negative, Urine Urobilinogen 0.2, Ur Leukocyte Esterase Negative, Urine RBC 3-5, Urine WBC 5-10, Ur Squamous Epith Cells 3-5, Urine Bacteria 1+, Urine Mucus 2+ 07/21/24 18:39: WBC 33.0 H*, RBC 4.05 L, Hgb 12.0 L, Hct 36.5 L, MCV 90.1, MCH 29.6, MCHC 32.9, RDW 14.9, Plt Count 605 H, MPV 9.2, Neut % (Auto) 75.8, Lymph % (Auto) 15.9, [place] % (Auto) 6.2, Eos % (Auto) 0.8, Baso % (Auto) 0.6, Neut # (Auto) 25.0 H, Lymph # (Auto) 5.2 H, [place] # (Auto) 2.0 H, Eos # (Auto) 0.3, Baso # (Auto) 0.2, Total Counted 100, Neutrophils % (Manual) 73, Lymphocytes % (Manual) 19, Monocytes % (Manual) 6, Eosinophils % (Manual) 2, Platelet Estimate Marked increase, RBC Morphology Not Reportable, Stomatocytes 1+, Sodium 134 L, Potassium 3.5, Chloride 101, Carbon Dioxide 28, Anion Gap 8.5, BUN 7, Creatinine 0.60, Estimated Creat Clear 90, Estimated GFR 104, Est GFR ( Amer) 126, Glucose 109 H, Calcium 8.2 L, Total Bilirubin 0.5, AST 81 H, ALT 53, Alkaline Phosphatase 154 H, Troponin I < 0.01, Total Protein 6.7, Albumin 3.1 L, Globulin 3.6 H, Albumin/Globulin Ratio 0.9 L, Lipase 45 07/21/24 19:08: Lactate 2.6 H 07/21/24 23:10: Lactate 1.7, Troponin I < 0.01 I & O for Last 24 hours: Intake & Output 07/19/24 07/20/24 07/21/24 06/08/25 23:59 23:59 23:59 23:59 Weight 53.07 kg Constitutional Constitutional: no acute distress *Routine HEENT Exam Head: Present normocephalic Eye: Present EOMI and PERRL ENT: Present mucous membranes moist *Routine Neck Exam Neck: Present supple; Absent lymphadenopathy *Routine Respiratory Exam Respiratory: Present CTA bilaterally *Routine Cardiovascular Exam Cardiovascular: Present RRR *Routine Abdominal Exam Abdominal: Present soft, normoactive bowel sounds, tenderness and distended Comments: Ostomy, midline abdominal scar *Routine Rectal Exam Rectal:: deferred *Routine Genitalia Exam Genitalia:: deferred *Routine Extremities Exam Extremities: Absent cyanosis, clubbing or edema *Routine Skin Exam Skin: Present warm; Absent rash *Routine Neurological Exam Neurological: Present alert and oriented X3 Assessment and Plan *Assessment and plan (1) Pouchitis: Status: Acute Category: Medical Code(s): K91.850 - Pouchitis (2) Anxiety: Status: Acute Category: Medical Code(s): F41.9 - Anxiety disorder, unspecified (3) Chronic anxiety: Status: Acute Category: Medical Code(s): F41.9 - Anxiety disorder, unspecified (4) Lower abdominal pain: Status: Acute Category: Medical Code(s): R10.30 - Lower abdominal pain, unspecified (5) Leukocytosis: Status: Acute Category: Medical Code(s): D72.829 - Elevated white blood cell count, unspecified (6) Thrombocytosis: Status: Acute Category: Medical Code(s): D75.839 - Thrombocytosis, unspecified Plan 53-year-old with extensive cardiovascular history including bypass surgery and 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 She was recently discharged from for these surgeries in June. Pouchitis - Zosyn every 8 - Symptomatic management - GI consult - Serial abdominal exams and monitoring Sepsis Lactic acidosis Leukocytosis - Monitor - IV fluids - IV antibiotics Anxiety - Continue home medications - As needed for symptom management Thrombocytosis -Monitor
[2024-07-22] MEDS: 0.9 % SODIUM CHLORIDE 1000ML 1,000 ML 500 ML IV (01:15)
[2024-07-22] MEDS: LORazepam 2MG/ML VIAL 1 MG IV ×2 (01:24→22:26)
[2024-07-22 02:12] LABS: Troponin I < 0.01 ng/ml (0.00-0.034)
[2024-07-22] MEDS: HYDROCODONE/APAP 5/325 MG TABLET 1 TAB PO (04:18)
[2024-07-22] MEDS: PIPERACILLIN/TAZO 3.375 GM in 0.9 % SODIUM CHLORIDE 50 ML IV ×3 (05:18→22:30)
--- NOTE | 2024-07-22 05:46 | PC.NURSE ---
Pt is alert and oriented x4. Pt has c/o anxiety and moderate abdominal pain and was treated per MAR. This nurse was unable to replace potassium (3.5) due to pt not being able to tolerate either route. Pt remains on telemetry with a NSR.
[2024-07-22 07:00] LABS: Basophils # 0.1 K/mm3 (0-0.2); Eosinophils # 0.4 Kmm3 (0.0-0.4); Eosinophils % 2.9 % (0.1-12.0); Hematocrit 31.1 % (37.0-47.0); Immature Granulocytes # 0.03 10^3uL; Immature Granulocytes % 0.2 %; Lymphocytes % 24.2 % (10-50); Mean Corpuscular HGB Conc 32.5 g/dL (31.8-35.4); Mean Corpuscular Hemoglobin 29.4 pg (27.0-31.2); Mean Corpuscular Volume 90.7 fl (81-99); Mean Platelet Volume 9.5 fl (7.4-10.4); Monocytes # 1.1 K/mm3 (0.1-1.0); Monocytes % 8.8 % (1.7-9.3); Neutrophils # 7.8 K/mm3 (1.8-7.8); Neutrophils % 62.9 % (37.0-80.0); Nucleated Red Blood Cells # 0 10^3/uL; Nucleated Red Blood Cells % 0 %; Platelet Count 414 K/mm3 (142-424); Red Blood Count 3.43 M/mm3 (4.20-5.40); Red Cell Distribution Width 15.1 % (11.5-17.5); Red Cell Distribution Width-SD 49.6 fL; White Blood Count 12.3 K/mm3 (4.8-10.8)
[2024-07-22 07:04] LABS: Albumin Level 2.3 g/dl (3.5-5.0); Chloride 105 mmol/L (98-107)
[2024-07-22 07:05] LABS: INR 1.08 (0.9-1.1); Prothrombin Time 11.9 seconds (10.1-12.5); Sodium 134 mmol/L (136-145)
[2024-07-22 07:07] LABS: Alanine Aminotransferase 157 U/L (12-78); Albumin/Globulin Ratio 0.8 (1.1-1.8); Alkaline Phosphatase 217 U/L (38-126); Anion Gap 2.9 mEq/L (5-15); Aspartate Amino Transferase 400 U/L (14-36); Bilirubin,Total 0.3 mg/dl (0.2-1.3); Blood Urea Nitrogen 5 mg/dl (7-17); Carbon Dioxide 29 mmol/L (22.0-30.0); Creatinine Clearance Estimated 92 mL/min (50-200); Estimated Glomerular Filt Rate 104 ml/min (>60); GFR (African American) 126 ML/MIN (>60); Total Protein,Serum 5.3 g/dl (6.3-8.2)
[2024-07-22 07:08] LABS: Calcium 7.4 mg/dl (8.4-10.2); Glucose 109 mg/dl (74-100); Magnesium 1.4 mg/dl (1.6-2.3)
[2024-07-22 07:16] LABS: Potassium 2.9 mmoL/L (3.5-5.1)
[2024-07-22 07:23] LABS: Lactic Acid 1.6 mmol/L (0.7-2.1)
[2024-07-22 07:38] LABS: Hemoglobin 10.1 g/dL (12.2-16.2)
[2024-07-22] MEDS: PRIMIDONE 50MG TABLET 50 MG PO ×2 (09:05→22:19)
[2024-07-22] MEDS: buPROPion HCl SR 150MG TAB 150 MG PO ×2 (09:05→22:19)
[2024-07-22] MEDS: METOPROLOL TARTRATE 25MG TABLET 25 MG PO (09:05)
[2024-07-22] MEDS: CITALOPRAM 40MG TABLET 40 MG PO (09:05)
[2024-07-22] MEDS: HEPARIN SODIUM 5,000 UNIT/ML VIAL 5000 UNIT SUBCUT ×3 (09:05→22:21)
[2024-07-22] MEDS: ASPIRIN 81MG CHEWABLE TABLET 81 MG PO (09:13)
[2024-07-22] MEDS: POTASSIUM CHLORIDE 20MEQ TAB 40 MEQ PO ×3 (09:14→17:06)
[2024-07-22] MEDS: MAGNESIUM SULFATE IN WATER 2 GM/50 ML PIGGYBACK IV ×3 (09:14→10:48)
--- NOTE | 2024-07-22 09:48 | HMH.PHAINT1 ---
Pharmacy Intervention Comments: MEDICATION RECONCILIATION COMPLETE USING EXTERNAL PHARMACY FILL HISTORY.
--- NOTE | 2024-07-22 10:05 | EXP.SURG.CON ---
History of Present Illness *Admission Date: 07/22/24 *Reason for visit:: Abdominal pain; possible inflammation of colorectal stump *History of present illness: This is a 53-year-old female seen in consultation from the primary service for possible inflammation/infection of her colorectal stump. She was recently hospitalized for over 1 month at the [facility] at which time she underwent coronary artery bypass grafting status post acute myocardial infarction. 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 She was ultimately discharged in early June of this year . She states that she has had ongoing abdominal pain with intermittent severe exacerbations since discharge. A severe exacerbation overnight required emergency department evaluation. She states that she feels quite a bit better this morning . She states that she is still not normal though . Forwarded from admission H&P/emergency department evaluation: Patient is a 53-year-old female presenting today with multiple complaints including severe anxiety stress but as well as severe lower abdominal pain. She has a hard time remembering the exact facts but states that in April she was diagnosed with a heart attack and subsequently developed a bowel where she had a colectomy and ostomy. Since that time she has been having severe anxiety stress and emotional reaction to this and crying. She states it took 2 weeks before she would even look at her abdomen. Today she has significant lower abdominal pain. This been ongoing for several days. She states that she is just very concerned that she is going to be sick again which is why she is crying. Denies any chest pain shortness of breath etc. In the emergency department her pain is significantly improved following antibiotics fluids and morphine. She is having mild to moderate pain currently otherwise much better symptomatically. Discussed findings from prior diagnostics and the management that is planned. Patient was agreeable. Family at bedside History independently obtained. Diagnostics and laboratory evaluation independently interpreted. Case discussed with ER physician. Old records reviewed. [facility] Disclaimer: The information contained in this section may have been updated after the patient was seen, as this information can be updated by other users. Medical History Depression Anxiety History of pleurisy Hemorrhoid Essential tremor Endometriosis Surgical History History of hand surgery History of Hx of cholecystectomy H/O rotator cuff surgery History of hysterectomy Family History Other Essential tremor Family history of heart disease Social History (Updated 07/21/24 @ 22:38 by Tara Fung RN) Smoking Status: Former smoker tobacco type: cigarettes packs per day: 1 alcohol intake: never substance use type: denies use current occupational status: unemployed and retired Travel in the last 8 weeks?: Inside the [place] household members: family housing: house caffeine: Yes Have you lived/traveled outside US in past 30 days?: No Contact w/someone who lives/traveled outside US past 30 days?: No Exposure to someone with infectious disease in past 14 days?: No Do you have a fever (greater than 100.4 F or 38 C)?: No Have you tested positive for COVID-19?: No Exposed to someone with COVID-19 in past 14 days?: No Do you have a sore throat?: No Do you have a cough?: No Do you have any weakness?: No Do you have any diarrhea?: No Are you experiencing any unusual bleeding?: No Do you have any muscle aches/pain?: No Do you have any abdominal pain?: Yes Are you experiencing loss of taste or smell?: No Meds Home Medications and Allergies Home Medications ?Medication ?Instructions ?Recorded ?Confirmed ?Type citalopram 40 mg tablet 40 mg PO DAILY 12/23/23 07/22/24 History primidone 50 mg tablet 50 mg PO BID 12/23/23 07/22/24 History bupropion HCl 300 mg 24 hr tablet, 300 mg PO DAILY 05/01/24 07/22/24 History extended release hydroxyzine HCl 10 mg tablet 10 mg PO Q8HP PRN Anxiety 05/01/24 07/22/24 History ipratropium 20 mcg-albuterol 100 1 puff inhalation QIDRT 05/01/24 07/22/24 History mcg/actuation mist for inhalation (Combivent Respimat) aspirin 81 mg chewable tablet 81 mg PO DAILY 07/21/24 07/22/24 History metoprolol tartrate 25 mg tablet 37.5 mg PO BID 07/21/24 07/22/24 History rosuvastatin 40 mg tablet 40 mg PO HS 07/21/24 07/22/24 History potassium chloride 20 mEq 40 meq PO DAILY 07/22/24 07/22/24 History tablet,extended release(part/cryst) New Prescriptions to Start Prescriptions: Allergies Allergy/AdvReac Type Severity Reaction Status Date / Time oxycodone (From Percocet) AdvReac Vomiting Verified 07/21/24 18:47 Exam (Inpt) Vital signs and Labs for Last 24 Hours: Temp Pulse Resp BP Pulse Ox O2 Del Method 97.7 F 76 18 98/65 L 96 Room Air 07/22/24 08:00 07/22/24 08:00 07/22/24 08:00 07/22/24 08:00 07/22/24 08:00 07/22/24 09:00 Laboratory Results - last 24 hr 07/21/24 18:32: Urine Color Yellow, Urine Appearance Clear, Urine pH 7.5, Ur Specific [place] 1.015, Urine Protein Negative, Urine Glucose (UA) Negative, Urine Ketones Negative, Urine Blood Negative, Urine Nitrate Negative, Urine Bilirubin Negative, Urine Urobilinogen 0.2, Ur Leukocyte Esterase Negative, Urine RBC 3-5, Urine WBC 5-10, Ur Squamous Epith Cells 3-5, Urine Bacteria 1+, Urine Mucus 2+ 07/21/24 18:39: WBC 33.0 H*, RBC 4.05 L, Hgb 12.0 L, Hct 36.5 L, MCV 90.1, MCH 29.6, MCHC 32.9, RDW 14.9, Plt Count 605 H, MPV 9.2, Neut % (Auto) 75.8, Lymph % (Auto) 15.9, [place] % (Auto) 6.2, Eos % (Auto) 0.8, Baso % (Auto) 0.6, Neut # (Auto) 25.0 H, Lymph # (Auto) 5.2 H, [place] # (Auto) 2.0 H, Eos # (Auto) 0.3, Baso # (Auto) 0.2, Total Counted 100, Neutrophils % (Manual) 73, Lymphocytes % (Manual) 19, Monocytes % (Manual) 6, Eosinophils % (Manual) 2, Platelet Estimate Marked increase, RBC Morphology Not Reportable, Stomatocytes 1+, Sodium 134 L, Potassium 3.5, Chloride 101, Carbon Dioxide 28, Anion Gap 8.5, BUN 7, Creatinine 0.60, Estimated Creat Clear 90, Estimated GFR 104, Est GFR ( Amer) 126, Glucose 109 H, Calcium 8.2 L, Total Bilirubin 0.5, AST 81 H, ALT 53, Alkaline Phosphatase 154 H, Troponin I < 0.01, Total Protein 6.7, Albumin 3.1 L, Globulin 3.6 H, Albumin/Globulin Ratio 0.9 L, Lipase 45 07/21/24 19:08: Lactate 2.6 H 07/21/24 23:10: Lactate 1.7, Troponin I < 0.01 07/22/24 01:38: Troponin I < 0.01 07/22/24 06:15: WBC 12.3 H D, RBC 3.43 L, Hgb 10.1 L D, Hct 31.1 L, MCV 90.7, MCH 29.4, MCHC 32.5, RDW 15.1, Plt Count 414 D, MPV 9.5, Neut % (Auto) 62.9, Lymph % (Auto) 24.2, [place] % (Auto) 8.8, Eos % (Auto) 2.9, Baso % (Auto) 1.0, Neut # (Auto) 7.8, Lymph # (Auto) 3.0, [place] # (Auto) 1.1 H, Eos # (Auto) 0.4, Baso # (Auto) 0.1, PT 11.9, INR 1.08, Sodium 134 L, Potassium 2.9 L*, Chloride 105, Carbon Dioxide 29, Anion Gap 2.9 L, BUN 5 L D, Creatinine 0.60, Estimated Creat Clear 92, Estimated GFR 104, Est GFR ( Amer) 126, Glucose 109 H, Lactate 1.6, Calcium 7.4 L, Phosphorus 4.0, Magnesium 1.4 L, Total Bilirubin 0.3, AST 400 H* D, ALT 157 H D, Alkaline Phosphatase 217 H, Total Protein 5.3 L, Albumin 2.3 L D, Globulin 3.0, Albumin/Globulin Ratio 0.8 L I & O for Labs for Last 24 Hours: Intake & Output 07/19/24 07/20/24 07/21/24 07/22/24 11:59 11:59 11:59 11:59 Intake Total 530 / 530 Output Total 550 / 550 Balance -20 / -20 Weight 120 lb 2 oz Constitutional: no acute distress Respiratory: Absent respiratory distress Cardiac: Absent Tachycardia GI: Present soft and tenderness (Mild to moderate tenderness throughout mid/lower abdomen); Absent guarding, rebound or rigidity Comments:: Ostomy viable. Results Labs 07/22/24 06:15 07/22/24 06:15 Labs: Laboratory Results - last 24 hr 07/21/24 18:32: Urine Color Yellow, Urine Appearance Clear, Urine pH 7.5, Ur Specific [place] 1.015, Urine Protein Negative, Urine Glucose (UA) Negative, Urine Ketones Negative, Urine Blood Negative, Urine Nitrate Negative, Urine Bilirubin Negative, Urine Urobilinogen 0.2, Ur Leukocyte Esterase Negative, Urine RBC 3-5, Urine WBC 5-10, Ur Squamous Epith Cells 3-5, Urine Bacteria 1+, Urine Mucus 2+ 07/21/24 18:39: WBC 33.0 H*, RBC 4.05 L, Hgb 12.0 L, Hct 36.5 L, MCV 90.1, MCH 29.6, MCHC 32.9, RDW 14.9, Plt Count 605 H, MPV 9.2, Neut % (Auto) 75.8, Lymph % (Auto) 15.9, [place] % (Auto) 6.2, Eos % (Auto) 0.8, Baso % (Auto) 0.6, Neut # (Auto) 25.0 H, Lymph # (Auto) 5.2 H, [place] # (Auto) 2.0 H, Eos # (Auto) 0.3, Baso # (Auto) 0.2, Total Counted 100, Neutrophils % (Manual) 73, Lymphocytes % (Manual) 19, Monocytes % (Manual) 6, Eosinophils % (Manual) 2, Platelet Estimate Marked increase, RBC Morphology Not Reportable, Stomatocytes 1+, Sodium 134 L, Potassium 3.5, Chloride 101, Carbon Dioxide 28, Anion Gap 8.5, BUN 7, Creatinine 0.60, Estimated Creat Clear 90, Estimated GFR 104, Est GFR ( Amer) 126, Glucose 109 H, Calcium 8.2 L, Total Bilirubin 0.5, AST 81 H, ALT 53, Alkaline Phosphatase 154 H, Troponin I < 0.01, Total Protein 6.7, Albumin 3.1 L, Globulin 3.6 H, Albumin/Globulin Ratio 0.9 L, Lipase 45 07/21/24 19:08: Lactate 2.6 H 07/21/24 23:10: Lactate 1.7, Troponin I < 0.01 07/22/24 01:38: Troponin I < 0.01 07/22/24 06:15: WBC 12.3 H D, RBC 3.43 L, Hgb 10.1 L D, Hct 31.1 L, MCV 90.7, MCH 29.4, MCHC 32.5, RDW 15.1, Plt Count 414 D, MPV 9.5, Neut % (Auto) 62.9, Lymph % (Auto) 24.2, [place] % (Auto) 8.8, Eos % (Auto) 2.9, Baso % (Auto) 1.0, Neut # (Auto) 7.8, Lymph # (Auto) 3.0, [place] # (Auto) 1.1 H, Eos # (Auto) 0.4, Baso # (Auto) 0.1, PT 11.9, INR 1.08, Sodium 134 L, Potassium 2.9 L*, Chloride 105, Carbon Dioxide 29, Anion Gap 2.9 L, BUN 5 L D, Creatinine 0.60, Estimated Creat Clear 92, Estimated GFR 104, Est GFR ( Amer) 126, Glucose 109 H, Lactate 1.6, Calcium 7.4 L, Phosphorus 4.0, Magnesium 1.4 L, Total Bilirubin 0.3, AST 400 H* D, ALT 157 H D, Alkaline Phosphatase 217 H, Total Protein 5.3 L, Albumin 2.3 L D, Globulin 3.0, Albumin/Globulin Ratio 0.[address] scan - abdomen: report reviewed and image reviewed CT scan - pelvis: report reviewed and image reviewed Assessment and Plan *Assessment and plan (1) Pouchitis: Problem Comment: Lower abdominal/pelvic inflammatory changes status post modified Santiago's Status: Acute Category: Medical Code(s): K91.850 - Pouchitis Plan: The patient has shown improvement over the last few hours on current antibiotic therapy. If she continues to improve on antibiotic therapy it is possible that she can ultimately be discharged from this facility with close outpatient follow-up at the [facility]. If she does not continue to show improvement, I recommend immediate transfer back to the [facility] where she recently underwent CABG and subsequent modified Santiago's. Given recent intervention at the [facility] and other comorbid conditions, the patient would not be appropriate for surgical intervention at this facility. (2) Sepsis: Status: Acute Category: Medical Code(s): A41.9 - Sepsis, unspecified organism (3) Leukocytosis: Status: Acute Category: Medical Code(s): D72.829 - Elevated white blood cell count, unspecified
[2024-07-22] MEDS: MORPHINE 4MG/ML SYRINGE 4 MG IV ×3 (10:07→20:15)
[2024-07-22] MEDS: LACTATED RINGERS 1000ML 1,000 ML 75 ML IV ×2 (10:21→23:26)
[2024-07-22 12:15] LABS: Chloride 105 mmol/L (98-107); Potassium 3.4 mmoL/L (3.5-5.1); Sodium 134 mmol/L (136-145)
[2024-07-22 12:18] LABS: Alanine Aminotransferase 139 U/L (12-78); Albumin Level 2.5 g/dl (3.5-5.0); Albumin/Globulin Ratio 0.8 (1.1-1.8); Alkaline Phosphatase 232 U/L (38-126); Anion Gap 3.4 mEq/L (5-15); Aspartate Amino Transferase 282 U/L (14-36); Bilirubin,Total 0.2 mg/dl (0.2-1.3); Blood Urea Nitrogen 5 mg/dl (7-17); Calcium 7.5 mg/dl (8.4-10.2); Carbon Dioxide 29 mmol/L (22.0-30.0); Creatinine Clearance Estimated 111 mL/min (50-200); Estimated Glomerular Filt Rate 129 ml/min (>60); GFR (African American) 156 ML/MIN (>60); Glucose 109 mg/dl (74-100); Total Protein,Serum 5.5 g/dl (6.3-8.2)
--- NOTE | 2024-07-22 18:21 | PC.NURSE ---
Pt is alert and oriented x4. abd pain treated per MAR. potassium and magnesium replaced this shift. colostomy bag and appliance change completed this shift. pt tolerated well. pt ambulating to the BR with standby assistance. maintenance fluids infusing per order. no needs at this time. call light within reach.
[2024-07-22] MEDS: PANTOPRAZOLE 40MG TABLET 40 MG PO (22:19)
[2024-07-22] MEDS: MELATONIN 5MG TABLET 5 MG PO (22:19)
[2024-07-22] MEDS: ATORVASTATIN 40MG TABLET 40 MG PO (22:19)
[2024-07-23] VITALS: PULSE 80
[2024-07-23 01:34] LABS: POC Glucose,Bedside 99 (70-110)
[2024-07-23 04:00] VITALS: BP 100/61; PULSE 80; PULSE 82; RESP 15; TEMP 36.8; O2SAT 98; BMI 23.7
--- NOTE | 2024-07-23 04:40 | PC.NURSE ---
Pt. is alert and orientated x 4. Pt. on room air. c/o low abdominal pain. Medicated per APR. Pt. has RUQ colostomy with liquid stool output. Pt. getting IV antibiotics . Pt. able to ambulate to bathroom with standby assist. Pt. agitated and shaky earlier in the shift. Medicated with Ativan IV and has slept well. Personal items and call serrano in reach.
--- NOTE | 2024-07-23 06:00 | US_ITS ---
FINAL REPORT CLINICAL HISTORY: Transaminitis FINDINGS: Sonographic images of the right upper quadrant were obtained. The pancreas is partially obscured. There is fatty infiltration of the liver. The gallbladder is surgically absent. There is no evidence of biliary ductal dilatation.The common duct measures 5 mm. Limited images of the right kidney are unremarkable. IMPRESSION: Fatty liver. Reviewed, Interpreted and Dictated by Abram Lucero MD Transcribed by Katie Noguera Authenticated and [facility]
[2024-07-23] MEDS: PIPERACILLIN/TAZO 3.375 GM in 0.9 % SODIUM CHLORIDE 50 ML IV ×2 (06:37→12:53)
[2024-07-23 06:49] LABS: POC Glucose,Bedside 84 (70-110)
[2024-07-23 06:58] LABS: Basophils # 0.1 K/mm3 (0-0.2); Basophils % 1.4 % (0.1-2.0); Eosinophils # 0.5 Kmm3 (0.0-0.4); Eosinophils % 5.4 % (0.1-12.0); Hematocrit 32.9 % (37.0-47.0); Immature Granulocytes # 0.05 10^3uL; Immature Granulocytes % 0.5 %; Lymphocytes # 3.1 K/mm3 (0.7-4.5); Lymphocytes % 31.2 % (10-50); Mean Corpuscular HGB Conc 30.4 g/dL (31.8-35.4); Mean Corpuscular Hemoglobin 28.7 pg (27.0-31.2); Mean Corpuscular Volume 94.5 fl (81-99); Mean Platelet Volume 9.8 fl (7.4-10.4); Monocytes # 0.8 K/mm3 (0.1-1.0); Monocytes % 8.1 % (1.7-9.3); Neutrophils # 5.3 K/mm3 (1.8-7.8); Neutrophils % 53.4 % (37.0-80.0); Nucleated Red Blood Cells # 0 10^3/uL; Nucleated Red Blood Cells % 0 %; Platelet Count 415 K/mm3 (142-424); Red Blood Count 3.48 M/mm3 (4.20-5.40); Red Cell Distribution Width 15.7 % (11.5-17.5); Red Cell Distribution Width-SD 53.7 fL
[2024-07-23 07:16] LABS: Albumin Level 2.4 g/dl (3.5-5.0); Chloride 109 mmol/L (98-107); Potassium 4.6 mmoL/L (3.5-5.1); Sodium 135 mmol/L (136-145)
[2024-07-23 07:18] LABS: Alanine Aminotransferase 109 U/L (12-78); Aspartate Amino Transferase 169 U/L (14-36); Blood Urea Nitrogen 4 mg/dl (7-17); Creatinine Clearance Estimated 93 mL/min (50-200); Estimated Glomerular Filt Rate 104 ml/min (>60); GFR (African American) 126 ML/MIN (>60)
[2024-07-23 07:19] LABS: Albumin/Globulin Ratio 0.8 (1.1-1.8); Alkaline Phosphatase 292 U/L (38-126); Anion Gap 0.6 mEq/L (5-15); Bilirubin,Total 0.2 mg/dl (0.2-1.3); Calcium 7.4 mg/dl (8.4-10.2); Carbon Dioxide 30 mmol/L (22.0-30.0); Glucose 77 mg/dl (74-100); Magnesium 2.4 mg/dl (1.6-2.3); Total Protein,Serum 5.4 g/dl (6.3-8.2)
--- NOTE | 2024-07-23 07:21 | EXP.GE.CONS ---
History of Present Illness *Admission Date: 07/22/24 *History of present illness: Mrs. 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 colorectal surgery at the [facility]). This occurred subsequent to her CABG procedure and acute MD. The patient does state that she had bowel and report is not available. She presented with severe lower abdominal pain that had been going on for a few days. She did improve with antibiotics and morphine. General surgery has seen the patient. [facility] Disclaimer: The information contained in this section may have been updated after the patient was seen, as this information can be updated by other users. Medical History Depression Anxiety History of pleurisy Hemorrhoid Essential tremor Endometriosis Surgical History History of hand surgery History of Hx of cholecystectomy H/O rotator cuff surgery History of hysterectomy Family History Other Essential tremor Family history of heart disease Social History (Updated 07/21/24 @ 22:38 by Tara Fung RN) Smoking Status: Former smoker tobacco type: cigarettes packs per day: 1 alcohol intake: never substance use type: denies use current occupational status: unemployed and retired Travel in the last 8 weeks?: Inside the [place] household members: family housing: house caffeine: Yes Have you lived/traveled outside US in past 30 days?: No Contact w/someone who lives/traveled outside US past 30 days?: No Exposure to someone with infectious disease in past 14 days?: No Do you have a fever (greater than 100.4 F or 38 C)?: No Have you tested positive for COVID-19?: No Exposed to someone with COVID-19 in past 14 days?: No Do you have a sore throat?: No Do you have a cough?: No Do you have any weakness?: No Do you have any diarrhea?: No Are you experiencing any unusual bleeding?: No Do you have any muscle aches/pain?: No Do you have any abdominal pain?: Yes Are you experiencing loss of taste or smell?: No Meds Home Medications and Allergies Home Medications ?Medication ?Instructions ?Recorded ?Confirmed ?Type citalopram 40 mg tablet 40 mg PO DAILY 12/23/23 07/22/24 History primidone 50 mg tablet 50 mg PO BID 12/23/23 07/22/24 History bupropion HCl 300 mg 24 hr tablet, 300 mg PO DAILY 05/01/24 07/22/24 History extended release hydroxyzine HCl 10 mg tablet 10 mg PO Q8HP PRN Anxiety 05/01/24 07/22/24 History ipratropium 20 mcg-albuterol 100 1 puff inhalation QIDRT 05/01/24 07/22/24 History mcg/actuation mist for inhalation (Combivent Respimat) aspirin 81 mg chewable tablet 81 mg PO DAILY 07/21/24 07/22/24 History metoprolol tartrate 25 mg tablet 37.5 mg PO BID 07/21/24 07/22/24 History rosuvastatin 40 mg tablet 40 mg PO HS 07/21/24 07/22/24 History potassium chloride 20 mEq 40 meq PO DAILY 07/22/24 07/22/24 History tablet,extended release(part/cryst) New Prescriptions to Start Prescriptions: Allergies Allergy/AdvReac Type Severity Reaction Status Date / Time oxycodone (From Percocet) AdvReac Vomiting Verified 07/21/24 18:47 Exam (Inpt) Vital signs and Labs for Last 24 Hours: Temp Pulse Resp BP Pulse Ox O2 Del Method 98.2 F 82 15 100/61 L 98 Room Air 07/23/24 04:00 07/23/24 04:00 07/23/24 04:00 07/23/24 04:00 07/23/24 04:00 07/23/24 06:59 Laboratory Results - last 24 hr 07/22/24 06:15: Hgb 10.1 L D, PT 11.9, INR 1.08, Lactate 1.6 07/22/24 12:02: Sodium 134 L, Potassium 3.4 L, Chloride 105, Carbon Dioxide 29, Anion Gap 3.4 L, BUN 5 L, Creatinine 0.50 L, Estimated Creat Clear 111, Estimated GFR 129, Est GFR ( Amer) 156 D, Glucose 109 H, Calcium 7.5 L, Total Bilirubin 0.2, AST 282 H D, ALT 139 H, Alkaline Phosphatase 232 H, Total Protein 5.5 L, Albumin 2.5 L, Globulin 3.0, Albumin/Globulin Ratio 0.8 L 07/22/24 22:36: POC Glucose 99 07/23/24 06:13: WBC 10.0, RBC 3.48 L, Hgb 10.0 L, Hct 32.9 L, MCV 94.5, MCH 28.7, MCHC 30.4 L, RDW 15.7, Plt Count 415, MPV 9.8, Neut % (Auto) 53.4, Lymph % (Auto) 31.2, [place] % (Auto) 8.1, Eos % (Auto) 5.4, Baso % (Auto) 1.4, Neut # (Auto) 5.3, Lymph # (Auto) 3.1, [place] # (Auto) 0.8, Eos # (Auto) 0.5 H, Baso # (Auto) 0.1, Chloride 109 H, Albumin 2.4 L 07/23/24 06:42: POC Glucose 84 I & O for Labs for Last 24 Hours: Intake & Output 07/20/24 07/21/24 07/22/24 07/23/24 23:59 23:59 23:59 23:59 Intake Total 1150 / 1493 343 / 343 Output Total 2850 / 3050 700 / 700 Balance -1700 / -1557 -357 / -357 Weight 117 lb 120 lb 2 oz 120 lb 12.8 oz Microbiology Reports for the Last 24 Hours: Microbiology 07/21/24 20:18 Blood Blood Culture - Preliminary NO GROWTH AFTER 24 HOURS 07/21/24 20:16 Blood Blood Culture - Preliminary NO GROWTH AFTER 24 HOURS Comments:: Normoactive bowel sounds, soft, ostomy site clean/wounds healing, benign abdomen Results Labs 07/23/24 06:13 07/23/24 06:13 Labs: Laboratory Results - last 24 hr 07/22/24 06:15: Hgb 10.1 L D, PT 11.9, INR 1.08, Lactate 1.6 07/22/24 12:02: Sodium 134 L, Potassium 3.4 L, Chloride 105, Carbon Dioxide 29, Anion Gap 3.4 L, BUN 5 L, Creatinine 0.50 L, Estimated Creat Clear 111, Estimated GFR 129, Est GFR ( Amer) 156 D, Glucose 109 H, Calcium 7.5 L, Total Bilirubin 0.2, AST 282 H D, ALT 139 H, Alkaline Phosphatase 232 H, Total Protein 5.5 L, Albumin 2.5 L, Globulin 3.0, Albumin/Globulin Ratio 0.8 L 07/22/24 22:36: POC Glucose 99 07/23/24 06:13: WBC 10.0, RBC 3.48 L, Hgb 10.0 L, Hct 32.9 L, MCV 94.5, MCH 28.7, MCHC 30.4 L, RDW 15.7, Plt Count 415, MPV 9.8, Neut % (Auto) 53.4, Lymph % (Auto) 31.2, [place] % (Auto) 8.1, Eos % (Auto) 5.4, Baso % (Auto) 1.4, Neut # (Auto) 5.3, Lymph # (Auto) 3.1, [place] # (Auto) 0.8, Eos # (Auto) 0.5 H, Baso # (Auto) 0.1, Chloride 109 H, Albumin 2.4 L 07/23/24 06:42: POC Glucose 84 Assessment and Plan *Assessment and plan (1) Pouchitis: Problem Comment: Lower abdominal/pelvic inflammatory changes status post modified Santiago's Status: Acute Category: Medical Code(s): K91.850 - Pouchitis Plan 1. Lower abdominal pain subsequent to her recent surgery. The patient is clinically improved with antibiotics and pain control. 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 As long as patient is tolerating oral intake, would recommend patient follow back with colorectal surgery. Would consider testing stool for pathogens but the patient is not having any diarrhea presently.
[2024-07-23 08:00] VITALS: BP 109/68; PULSE 80; PULSE 85; RESP 18; TEMP 36.8; O2SAT 95
--- NOTE | 2024-07-23 08:58 | P.PN_ITS ---
Subjective Patient reports: feels better and still having pain Narrative: She feels like she is continuing to slowly improve since admission. She states that she has an appointment to see her colo-rectal surgeon later this month at the [facility]. Exam Data for Last 24 hours Vital signs and Labs for Last 24 Hours: Temp Pulse Resp BP Pulse Ox O2 Del Method 98.2 F 82 15 100/61 L 98 Room Air 07/23/24 04:00 07/23/24 04:00 07/23/24 04:00 07/23/24 04:00 07/23/24 04:00 07/23/24 06:59 Laboratory Results - last 24 hr 07/22/24 12:02: Sodium 134 L, Potassium 3.4 L, Chloride 105, Carbon Dioxide 29, Anion Gap 3.4 L, BUN 5 L, Creatinine 0.50 L, Estimated Creat Clear 111, Estimated GFR 129, Est GFR ( Amer) 156 D, Glucose 109 H, Calcium 7.5 L, Total Bilirubin 0.2, AST 282 H D, ALT 139 H, Alkaline Phosphatase 232 H, Total Protein 5.5 L, Albumin 2.5 L, Globulin 3.0, Albumin/Globulin Ratio 0.8 L 07/22/24 22:36: POC Glucose 99 07/23/24 06:13: WBC 10.0, RBC 3.48 L, Hgb 10.0 L, Hct 32.9 L, MCV 94.5, MCH 28.7, MCHC 30.4 L, RDW 15.7, Plt Count 415, MPV 9.8, Neut % (Auto) 53.4, Lymph % (Auto) 31.2, [place] % (Auto) 8.1, Eos % (Auto) 5.4, Baso % (Auto) 1.4, Neut # (Auto) 5.3, Lymph # (Auto) 3.1, [place] # (Auto) 0.8, Eos # (Auto) 0.5 H, Baso # (Auto) 0.1, Sodium 135 L, Potassium 4.6 D, Chloride 109 H, Carbon Dioxide 30, Anion Gap 0.6 L, BUN 4 L, Creatinine 0.60, Estimated Creat Clear 93, Estimated GFR 104, Est GFR ( Amer) 126, Glucose 77 D, Calcium 7.4 L, Magnesium 2.4 H D, Total Bilirubin 0.2, AST 169 H D, ALT 109 H, Alkaline Phosphatase 292 H, Total Protein 5.4 L, Albumin 2.4 L, Globulin 3.0, Albumin/Globulin Ratio 0.8 L 07/23/24 06:42: POC Glucose 84 I & O for Last 24 hours: Intake & Output 07/20/24 07/21/24 07/22/24 07/23/24 11:59 11:59 11:59 11:59 Intake Total 530 / 530 963 / 963 Output Total 550 / 1350 3000 / 3000 Balance -20 / -820 -7 / -2036 Weight 120 lb 2 oz 120 lb 12.8 oz Microbiology Reports for the Last 24 Hours: Microbiology 07/21/24 20:18 Blood Blood Culture - Preliminary NO GROWTH AFTER 24 HOURS 07/21/24 20:16 Blood Blood Culture - Preliminary NO GROWTH AFTER 24 HOURS Constitutional Constitutional: no acute distress *Routine Respiratory Exam Respiratory: Absent respiratory distress *Routine Cardiovascular Exam Cardiovascular: Absent tachycardia *Routine Abdominal Exam Abdominal: Present tenderness (Slightly improved versus prior exam) Progress Note: A&P Assessment and plan (1) Pouchitis: Problem details: Lower abdominal/pelvic inflammatory changes status post modified Santiago's Status: Acute Assessment and plan: Overall management as per primary service Additional management as per gastroenterology consultation Complete course of antibiotics Follow-up with colo-rectal surgery as scheduled ([facility])
[2024-07-23] MEDS: HEPARIN SODIUM 5,000 UNIT/ML VIAL 5000 UNIT SUBCUT ×2 (09:15→20:42)
[2024-07-23] MEDS: buPROPion HCl SR 150MG TAB 150 MG PO ×2 (09:16→20:40)
[2024-07-23] MEDS: ASPIRIN 81MG CHEWABLE TABLET 81 MG PO (09:16)
[2024-07-23] MEDS: MORPHINE 4MG/ML SYRINGE 4 MG IV ×3 (09:16→21:02)
[2024-07-23] MEDS: CITALOPRAM 40MG TABLET 40 MG PO (09:16)
[2024-07-23] MEDS: PRIMIDONE 50MG TABLET 50 MG PO ×2 (09:16→20:40)
[2024-07-23] MEDS: METOPROLOL TARTRATE 25MG TABLET 25 MG PO ×2 (09:16→20:40)
[2024-07-23 09:27] LABS: Adenovirus F 40/41, stool Not Detected (NotDetected); Astrovirus Not Detected (NotDetected); Campylobacter Not Detected (NotDetected); Cryptosporidium Not Detected (NotDetected); Cyclospora Cayetanesis Not Detected (NotDetected); Entamoeba histolytica Not Detected (NotDetected); Enteroaggregative E coli Not Detected (NotDetected); Enteropathogenic E coli Not Detected (NotDetected); Enterotoxigenic E coli Not Detected (NotDetected); Giardia lamblia Not Detected (NotDetected); Norovirus Not Detected (NotDetected); Plesimonas Shigalloides, PCR Not Detected (NotDetected); Rotavirus A Not Detected (NotDetected); Salmonella, PCR Not Detected (NotDetected); Sapovirus Not Detected (NotDetected); Shiga-like toxin E coli Not Detected (NotDetected); Shigella Enterovasive E coli Not Detected (NotDetected); Vibrio Cholerae Not Detected (NotDetected); Vibrio, PCR Not Detected (NotDetected); Yersinia Entercolitica, PCR Not Detected (NotDetected)
[2024-07-23 10:37] LABS: POC Glucose,Bedside 88 (70-110)
[2024-07-23 12:00] VITALS: BP 97/62; PULSE 70; PULSE 75; PULSE 80; RESP 18; TEMP 36.6; O2SAT 97
[2024-07-23] MEDS: LACTATED RINGERS 1000ML 1,000 ML 75 ML IV (12:53)
[2024-07-23] MEDS: HYDROXYZINE HCL 10 MG/5 ML PO ×2 (13:07→20:46)
[2024-07-23 13:50] LABS: Clostridium Difficile A/B, PCR Detected (NotDetected)
--- NOTE | 2024-07-23 15:08 | PC.NURSE ---
Pt. is alert and orientated x 4. Pt. on room air. c/o low abdominal pain. Medicated per APR. Pt. has RUQ colostomy with liquid stool output. Pt. getting IV antibiotics. Now found to have cdiff and on enteric contact, fsbg, 20g L AC LR@ 75, bed alarm active and up with assistance times one.
--- NOTE | 2024-07-23 15:09 | EXP.ACUTE.PN ---
Subjective *Date: 07/23/24 *Time: 19:31 Interval history: Stable on room air. Still having some abdominal pain today. Denies chest pain or shortness of breath. Having output from her ostomy. Stools are liquid. Afebrile. White count somewhat improved at 10. GI evaluating today Medical Exam Vital signs and Labs for Last 24 Hours: Vital Signs Temp Pulse Pulse Resp BP Pulse Ox O2 Del Method 07/23/24 15:00 Room Air 07/23/24 12:34 Room Air 07/23/24 12:00 97.8 F 75 18 97/62 L 97 Room Air 07/23/24 11:00 Room Air 07/23/24 08:00 80 07/23/24 08:00 Room Air 07/23/24 08:00 98.3 F 85 18 109/68 L 95 Room Air 07/23/24 06:59 Room Air 07/23/24 05:00 Room Air 07/23/24 04:00 80 07/23/24 04:00 98.2 F 82 15 100/61 L 98 Room Air 07/23/24 03:00 Room Air 07/23/24 01:00 Room Air 07/23/24 00:00 80 07/22/24 23:50 97.7 F 81 12 90/55 L 98 Room Air 07/22/24 23:00 Room Air 07/22/24 21:00 Room Air 07/22/24 20:00 98 Room Air 07/22/24 20:00 70 07/22/24 19:44 97.9 F 76 16 93/56 L 97 Room Air 07/22/24 18:50 Room Air 07/22/24 17:00 Room Air 07/22/24 16:00 80 07/22/24 16:00 97.8 F 77 18 95/55 L 95 Room Air Intake and Output 07/22/24 07/23/24 07/23/24 23:59 07:59 15:59 Intake Total 260 / 1493 343 / 963 620 / 963 Output Total 1500 / 3050 700 / 1500 800 / 1500 Balance -1240 / -1557 -357 / -537 -180 / -537 Intake: Intake, Oral Amount 260 / 1443 343 / 963 620 / 963 Output: Output, Urine Amount 1500 / 2850 500 / 1300 800 / 1300 Output, Stool Amount 200 / 200 Other: Number of Unmeasured Voids 0 0 Number of Bowel Movements 1 1 Weight 54.794 kg Patient Weight 07/23/24 23:59 Weight 54.794 kg Laboratory Results - last 24 hr 07/22/24 22:36: POC Glucose 99 07/23/24 06:13: WBC 10.0, RBC 3.48 L, Hgb 10.0 L, Hct 32.9 L, MCV 94.5, MCH 28.7, MCHC 30.4 L, RDW 15.7, Plt Count 415, MPV 9.8, Neut % (Auto) 53.4, Lymph % (Auto) 31.2, Lander % (Auto) 8.1, Eos % (Auto) 5.4, Baso % (Auto) 1.4, Neut # (Auto) 5.3, Lymph # (Auto) 3.1, Lander # (Auto) 0.8, Eos # (Auto) 0.5 H, Baso # (Auto) 0.1, Sodium 135 L, Potassium 4.6 D, Chloride 109 H, Carbon Dioxide 30, Anion Gap 0.6 L, BUN 4 L, Creatinine 0.60, Estimated Creat Clear 93, Estimated GFR 104, Est GFR ( Amer) 126, Glucose 77 D, Calcium 7.4 L, Magnesium 2.4 H D, Total Bilirubin 0.2, AST 169 H D, ALT 109 H, Alkaline Phosphatase 292 H, Total Protein 5.4 L, Albumin 2.4 L, Globulin 3.0, Albumin/Globulin Ratio 0.8 L 07/23/24 06:42: POC Glucose 84 07/23/24 09:20: Stl C. cayetanensis PCR Not detected, Stool Rotavirus (PCR) Not detected, Stl Adenov F 40/41 PCR Not detected, Stool Astrovirus (PCR) Not detected, Stool Campylobacter PCR Not detected, Stl C.difficile Tox PCR Detected A, Stool Cryptosporidium PCR Not detected, Stl E.coli Shiga Tox PCR Not detected, Stool E coli O157 PCR Not detected, Stl Enterotoxigenic E PCR Not detected, Stool EPEC (PCR) Not detected, Stool EAEC (PCR) Not detected, Stl E. histolytica PCR Not detected, Stool Giardia Lamblia PCR Not detected, Stool Salmonella PCR Not detected, Stool Sapovirus (PCR) Not detected, Stl P. shigelloides PCR Not detected, Stl Shigella/EIEC PCR Not detected, St Y.enterocolitica PCR Not detected, Stool Vibrio (PCR) Not detected, Stl Vibrio cholerae PCR Not detected, Stl Norovirus GI/GII PCR Not detected 07/23/24 10:30: POC Glucose 88 I & O for Labs for Last 24 Hours: Intake & Output 07/20/24 07/21/24 07/22/24 07/23/24 23:59 23:59 23:59 23:59 Intake Total 1150 / 1493 963 / 963 Output Total 2850 / 3050 1500 / 1500 Balance -1700 / -1557 -537 / -537 Weight 53.07 kg 54.488 kg 54.794 kg Microbiology Reports for the Last 24 Hours: Microbiology 07/21/24 20:18 Blood Blood Culture - Preliminary NO GROWTH AFTER 24 HOURS 07/21/24 20:16 Blood Blood Culture - Preliminary NO GROWTH AFTER 24 HOURS Constitutional: Present mild distress, thin, chronically ill appearing and cooperative Head: Present atraumatic and normocephalic ENT: Present normal exam Respiratory: Present normal respiratory effort; Absent rhonchi, wheezes or crackles Cardiac: Present Reg Rate and Rhythm GI: Present soft, tenderness (Worsen right lower quadrant) and normal bowel sounds; Absent distention Comments:: Colostomy with output in right lower abdomen. Stool liquid. Stoma pink and healthy appearing Extremities: Present normal inspection and full ROM Skin: Present intact; Absent erythema Neuro: Present Grossly Intact, alert, awake, oriented x 3 and moves all extremities Assessment and Plan *Assessment and plan (1) C. difficile colitis: Status: Acute Category: Medical Code(s): A04.72 - Enterocolitis due to Clostridium difficile, not specified as recurrent (2) Pouchitis: Problem Comment: Lower abdominal/pelvic inflammatory changes status post modified Santiago's Status: Acute Category: Medical Code(s): K91.850 - Pouchitis (3) Anxiety: Status: Acute Category: Medical Code(s): F41.9 - Anxiety disorder, unspecified (4) Chronic anxiety: Status: Acute Category: Medical Code(s): F41.9 - Anxiety disorder, unspecified (5) Lower abdominal pain: Status: Acute Category: Medical Code(s): R10.30 - Lower abdominal pain, unspecified (6) Leukocytosis: Status: Acute Category: Medical Code(s): D72.829 - Elevated white blood cell count, unspecified (7) Thrombocytosis: Status: Acute Category: Medical Code(s): D75.839 - Thrombocytosis, unspecified Plan 53-year-old with extensive cardiovascular history including bypass surgery and 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 She was recently discharged from for these surgeries in June. Stool sample obtained, positive for C. difficile. Will initiate vancomycin today. Showing some improvement. Continues to require inpatient management. Problems addressed as follows: C. difficile ileitis/colitis Pouchitis - Will discontinue Zosyn. Initiated on p.o. vancomycin 125 mg every 6 hours - Plan to complete 10-day course. Continue symptomatic management. Advance diet to low residue/low fiber diet - Discussed case with GI, will hold on any intervention at this time. Monitor for improvement with treatment of infection above - White count 10, hemoglobin 10. Tolerating p.o. intake. Right upper quadrant ultrasound reviewed showing fatty liver. Otherwise negative with no biliary dilatation or lesions per my review Sepsis Lactic acidosis Leukocytosis - Discontinue IV fluids today as we advance diet. - Repeat CBC, CMP, magnesium ordered for the morning Anxiety - Continue home medications - As needed for symptom management Thrombocytosis -Monitor
--- OUTSIDE RECORDS SUMMARY | 2024-07-23 15:41 | XMS_ITS | Encounter Summary ---
Author Organization Healthcare Address [address] [place] [address] Care Team Providers Care Physical Security Engineer Name Role Phone Pcp, No Primary Care Provider Champ Butler MD Primary Care Provider + [phone] Encounter Details Date Type Department Care Team (Late st Contact Info) Description 05/21/2024 Lab Requisition [facility] [address] [place] [address] Tom Dyson MD [address] [facility] [address] [place] [phone] Encounter for general adult medical examination without [...] in a detention (including now)? No 05/02/2024 Utilities Answer Date [...] Description 07/31/2024 9:00 AM EDT Office Visit [facility] General Surgery [address], [address] [place] [address] Lidia Troncoso MD [address] [place] [address] documented as of this encounter [...] at day 1 05/22/2024 8:46 AM EDT [facility] Swab (Nares and Jacey Rectal) 05/21/2024 11:00 AM EDT 05/21/2024 11:55 AM EDT us Tom Dyson MD LAB MICROBIOLOGY - GEN ERAL ORDERABLES Final Result [facility] [address] [place] [address] documented in this encounter Visit Diagnoses Diagnosis [...] documented as of this encounter Care Teams Physical Security Engineer Relationship Specialty Start Date End Date Pcp, Katherine [address] [place] [address] PCP - General Family Medicine 04/04/24 06/28/24 Champ Quiroz MD [address] [place] [address] PCP - General Internal Medicine 06/29/24 documented as of this encounter
--- OUTSIDE RECORDS SUMMARY | 2024-07-23 15:42 | XMS_ITS | Encounter Summary ---
Author Organization Healthcare Address [address] [place] [address] Care Team Providers Care Wood Furniture Assembler Name Role Phone Pcp, No Primary [...] were you homeless or living in a long-term (including now)? No 05/02/2024 Utilities Answer Date [...] [facility] [address] [place] [address] Lidia Troncoso MD [address] [place] [address] documented as of this encounter Goals Goal [...] documented as of this encounter Care Teams Wood Furniture Assembler Relationship Specialty Start Date End Date Pcp, [place] [address] PCP - General Family Medicine 04/04/24 06/28/24 documented as of this encounter
--- OUTSIDE RECORDS SUMMARY | 2024-07-23 15:42 | XMS_ITS | Encounter Summary ---
Author Organization Healthcare Address [address] [place] [address] Care Team Providers Care Presser And Blocker Knitted Goods Name Role Phone Pcp, No Primary Care Provider Champ Butler MD Primary Care Provider + [phone] Encounter Details Date Type Department Care Team (Late st Contact Info) Description 05/14/2024 Lab Requisition [facility] [address] [place] [address] Tom Dyson MD [address] [facility] [address] [place] [phone] Encounter for general adult medical examination without [...] any time in the past 12 m [facility], were you homeless or living [...] [address] [place] [address] Lidia Troncoso MD [address] [place] [address] documented as of this encounter [...] at day 1 05/15/2024 11:17 AM EDT [facility] Swab (Nares and Jacey Rectal) 05/14/2024 8:24 AM EDT 05/14/2024 2:12 PM EDT us Tom Dyson MD LAB MICROBIOLOGY - GEN ERAL ORDERABLES Final Result [facility] [address] [place] [address] documented in this encounter Visit Diagnoses Diagnosis [...] documented as of this encounter Care Teams Presser And Blocker Knitted Goods Relationship Specialty Start Date End Date Pcp, [place] [address] PCP - General Family Medicine 04/04/24 06/28/24 Champ Quiroz MD [address] [place] [address] PCP - General Internal Medicine 06/29/24 documented as of this encounter
--- OUTSIDE RECORDS SUMMARY | 2024-07-23 15:44 | XMS_ITS | Encounter Summary ---
Author Organization [facility] Address [address] [place] [address] Care Team Providers Care Inflatable Buildings Laminator Name Role Phone Champ Quiroz MD Primary Care Provider + [phone] Encounter Details Date Type Department Care Team [...] any time in the past 12 m [facility], were you homeless or living in a halfway (including now)? No 05/02/2024 AUDIT-C Answer Date [...] the past 12 months has th e [employer], gas, oil, or water company threatened to [...] Description 07/31/2024 9:00 AM EDT Office Visit [facility] General Surgery [address] [place] [address] Lidia Troncoso MD [address] [place] [address] documented as of this encounter [...] documented as of this encounter Care Teams Inflatable Buildings Laminator Relationship Specialty Start Date End Date Champ Quiroz MD [address] [place] [address] PCP - General Internal Medicine 06/29/24 documented as of this encounter
--- OUTSIDE RECORDS SUMMARY | 2024-07-23 15:44 | XMS_ITS | Encounter Summary ---
Author Organization [facility] Address [address] [place] [address] Care Team Providers Care Sheeter Waxer Operator Name Role Phone Champ Quiroz MD Primary Care Provider + [phone] Encounter Details Date Type Department Care Team [...] any time in the past 12 m [facility], were you homeless or living [...] Not at all 06/29/2024 2:40 PM EDT Thai'Marav Obando Feeling tired or having edel le [...] Description 07/31/2024 9:00 AM EDT Office Visit [facility] General Surgery [address], [address] [place] [address] Lidia Troncoso MD [address] [place] [address] documented as of this encounter [...] documented as of this encounter Care Teams Sheeter Waxer Operator Relationship Specialty Start Date End Date Champ Quiroz MD [address] [place] [address] PCP - General Internal Medicine 06/29/24 documented as of this encounter
--- OUTSIDE RECORDS SUMMARY | 2024-07-23 15:44 | XMS_ITS | Encounter Summary ---
Author Organization Healthcare Address [address] [place] [address] Care Team Providers Care Filling And Stapling Machine Operator Name Role Phone Pcp, No Primary [...] any time in the past 12 m [facility], were you homeless or living in a long term (including now)? No 05/02/2024 Utilities Answer Date [...] [facility] General Surgery [address], [address] [place] [address] Lidia Troncoso MD [address] [place] [address] documented as of this encounter Goals Goal [...] documented as of this encounter Care Teams Filling And Stapling Machine Operator Relationship Specialty Start Date End Date Pcp, [place] [address] PCP - General Family Medicine 04/04/24 06/28/24 documented as of this encounter
--- OUTSIDE RECORDS SUMMARY | 2024-07-23 15:44 | XMS_ITS | Encounter Summary ---
Author Organization Healthcare Address [address] [place] [address] Care Team Providers Care Saw Straightener Name Role Phone Champ Quiroz MD Primary Care Provider [phone] Encounter Details Date Type Department Care Team (Late st Contact Info) Description 07/20/2024 Telephone [facility] Cardi[facility]acic [address], [address] [place] [address] Ana Luisa Simental RN [id number] [address] [id number] Social History Tobacco Use Types Packs/Day Years [...] in a snf (including now)? No 05/02/2024 AUDIT-C Answer Date [...] the past 12 months has th e [employer], [employer], oil, or water [employer] threatened to shut off services in your [...] [facility] General Surgery [address], [address] [place] [address] Lidia Troncoso MD [address] [place] [address] documented as of this encounter [...] documented as of this encounter Care Teams Saw Straightener Relationship Specialty Start Date End Date Champ Quiroz MD [address] [place] [address] PCP - General Internal Medicine 06/29/24 documented as of this encounter
--- OUTSIDE RECORDS SUMMARY | 2024-07-23 15:44 | XMS_ITS | Encounter Summary ---
Author Organization Healthcare Address [address] [id number] Care Team Providers Care Roller Printing Supervisor Name Role Phone Pcp, No Primary Care Provider Unavailabl e Encounter Details Date Type Department Care Team (Late st Contact Info) Description 06/26/2024 Telephone [facility] Cardioth[facility]acic [address], [address] [place] [address] Ana Luisa Simental, RN [id number] [address] [place] [address] Social History Tobacco Use Types Packs/Day Years [...] in the past 12 m [facility], were you homeless or living in a long term (including now)? No 05/02/2024 Utilities Answer Date Recorded In the past 12 months has th e [employer], gas, oil, or water [employer] threatened to shut off services in your [...] [address] [place] [address] Lidia Troncoso MD [address] [place] [address] documented as of this encounter [...] documented as of this encounter Care Teams Roller Printing Supervisor Relationship Specialty Start Date End Date Pcp, [place] [address] PCP - General Family Medicine 04/04/24 06/28/24 documented as of this encounter
--- OUTSIDE RECORDS SUMMARY | 2024-07-23 15:44 | XMS_ITS | Encounter Summary ---
Author Organization Healthcare Address [address] [place] [address] Care Team Providers Care Head Loader Name Role Phone Pcp, No Primary Care Provider Unavailabl e Reason for Visit * Reason Onset Date Comments HCN Clinical Concern/Question 06/26/2024 Encounter Details Date Type Department Care Team (Late st Contact Info) Description 06/26/2024 Telephone [facility] General Surgery [address] [place] [address] Judy Mancuso MD [address] [place] [address] HCN Clinical Concern/Question Social History [...] you homeless or living in a senior care (including now)? No 05/02/2024 Utilities Answer Date [...] to talk to nurse Best contact number: [phone] (home) Optimal time of day to reach caller: ANYTIME Additional comments/information from caller: None Note: Please do not reply to this message. Follow-up communication and further actions as a result of this message need to be communicated with the patient directly, if the patient is not active onMyChart. If the patient is active on MyChart, they will receive notification of the communication/outcome via [employer]. documented in this encounter Plan of Treatment Upcoming Encounters Date Type Department Care Team (Late st Contact Info) Description 07/31/2024 9:00 AM EDT Office Visit [facility] General Surgery [address], [address] [place] [address] Lidia Troncoso MD [address] [place] [address] documented as of this encounter [...] documented as of this encounter Care Teams Head Loader Relationship Specialty Start Date End Date Pcp, [place] [address] PCP - General Family Medicine 04/04/24 06/28/24 documented as of this encounter
--- OUTSIDE RECORDS SUMMARY | 2024-07-23 15:44 | XMS_ITS | Encounter Summary ---
Author Organization Healthcare Address [address] [place] [address] Care Team Providers Care Home Stager Name Role Phone Pcp, No Primary Care Provider Unavailabl e Encounter Details Date Type Department Care Team (Late st Contact Info) Description 06/25/2024 Telephone [facility] General Surgery [address], [address] [place] [address] Katharine Urbano RN TRAUMA & [...] any time in the past 12 m [facility], were you homeless or living [...] [facility] General Surgery [address], [address] [place] [address] Lidai Troncoso MD [address] [place] [address] documented as of this encounter [...] documented as of this encounter Care Teams Home Stager Relationship Specialty Start Date End Date Pcp, [place] [address] PCP - General Family Medicine 04/04/24 06/28/24 documented as of this encounter
--- OUTSIDE RECORDS SUMMARY | 2024-07-23 15:46 | XMS_ITS | Clinical Summary ---
Author Organization [facility] Address [address] [place] [address] Care Team Providers Care Nuclear Officer Name Role Phone Champ Quiroz MD Primary Care Provider [phone] Allergies Active Allergy Reactions Criticality Noted Date [...] Type Department Care Team Description 07/20/2024 Telephone [facility] Cardiothoracic [address], [address] [place] [address] Ana Luisa Simental RN 07/18/2024 11:00 AM EDT Office Visit [facility] Cardiothoracic [address], [address] [place] [phone] Maite Austin MD CAD, multiple vessel (Primary Dx); Tobacco use; Anxiety and depression; Chronic obstructive pulmonary disease, unspecified COPD type ([facility]); NSTEMI (non-ST elevated myocardial infarction) ([facility]); THOM (obstructive sleep apnea); S/P CABG x 4; Post-op pain 07/18/2024 9:52 AM EDT - 07/18/2024 11:59 PM EDT Hospital Encounter [facility] Radiology [address], [address] [place] [phone] CAD, multiple vessel Discharge Disposition: Home or Self Care 07/18/2024 Travel 06/29/2024 2:30 PM EDT Office Visit [facility] General Surgery [address], [address] [place] [address] Lidia Troncoso MD 06/29/2024 Travel 06/26/2024 Telephone [facility] Cardiothoracic [address], [address] [place] [phone] Ana Luisa Simental RN 06/26/2024 Telephone [facility] General Surgery [address], [address] [place] [phone] Judy Mancuso MD HCN Clinical Concern/Question 06/25/2024 Telephone [facility] General Surgery [address], [address] [place] [address] Katharine Urbano RN 06/21/2024 Travel 06/20/2024 Travel 06/19/2024 Travel 06/18/2024 Travel 06/17/2024 Travel 06/15/2024 Travel 06/14/2024 Travel 06/11/2024 Travel 06/09/2024 Travel 06/08/2024 Travel 06/05/2024 Travel 06/04/2024 Travel 06/01/2024 Travel 05/31/2024 Travel 05/30/2024 Travel 05/29/2024 Results Follow-Up Colorectal Surgery [address] [place] [address] Lidia Troncoso MD 05/29/2024 Travel 05/28/2024 Travel 05/27/2024 Travel 05/26/2024 Travel 05/25/2024 Travel 05/24/2024 Travel 05/23/2024 1:30 PM EDT Anesthesia Event [facility] [address] [place] [address] Compa Cuellar MD Carney Tinsley, Amanda S, COSTUMING SUPERVISOR, DNP 05/23/2024 12:31 PM EDT - 05/23/2024 4:06 PM EDT Surgery [facility] [address] [place] [address] Judy Mancuso MD LAPAROTOMY, EXPLORATORY, possible bowel resection, possible ostomy [20640 (CPT )] 05/23/2024 Travel 05/22/2024 Travel 05/21/2024 Lab Requisition [facility] [address] [place] [address] Tom Dyson MD Encounter for general adult medical examination without abnormal findings 05/21/2024 Travel 05/20/2024 Travel 05/19/2024 Travel 05/18/2024 Travel 05/17/2024 Travel 05/16/2024 Travel 05/15/2024 Travel 05/14/2024 Lab Requisition [facility] [address] [place] [address] Tom Dyson MD Encounter for general adult medical examination without abnormal findings 05/14/2024 Travel 05/13/2024 Travel 05/12/2024 Travel 05/11/2024 Travel 05/10/2024 Travel 05/09/2024 Travel 05/08/2024 Travel 05/07/2024 Travel 05/06/2024 9:14 AM EDT Anesthesia Event [facility] [address] [place] [address] Alfie Khoury MD Bliss, Emily G, MD 05/06/2024 9:00 AM EDT - 05/06/2024 5:45 PM EDT Surgery [facility] [address] [place] [address] Maite Austin MD CABG, 2 OR MORE VESSELS 05/06/2024 Travel 05/06/2024 Orders Only External Location [address] [place] [address] Provider, External 05/03/2024 Travel 05/02/2024 11:59 PM EDT Anesthesia Event [facility] [address] [address] Adelia Robbins MD Latham, Jeremy J, MD 05/02/2024 Travel 05/01/2024 11:01 PM EDT - 06/21/2024 3:41 PM EDT Hospital Encounter [facility] [address] [place] [address] Edson Mcclure DO London-Bounds, Tessa, MD Reda, Hassan K, MD S/P colon resection (Primary Dx); CAD, multiple vessel; Cardiac volume overload; S/P CABG x 4; Colon perforation (CMS/HCC); Abdominal fluid collection Discharge Disposition: Home or Self Care 05/01/2024 Orders Only External Location [address] [place] [address] Jd Bentley MD 05/01/2024 Orders Only External Location [address] [place] [address] Jd Bentley MD 05/01/2024 Travel 04/30/2024 Orders Only External Location [address] [place] [address] Provider, External from Last 3 Months Social [...] were you homeless or living in a nursing home (including now)? No 05/02/2024 AUDIT-C Answer [...] Recorded In the past 12 months has [employer], gas, oil, or water Converser threatened to shut off services in your [...] Description 07/31/2024 9:00 AM EDT Office Visit [facility] General Surgery [address], [address] [place] [address] Lidia Troncoso MD [address] [facility] [address] [place] [address] Health Maintenance Due Date Last [...] 11/03/2019 [facility]-Zoster Vaccines (1 of 2) 11/03/2019 WGT-[id number]-76 Vaccine (1 - 2023- season) 2023 [facility]-Influenza [...] Jd [employer] Implanted Type Area Pediatrician/Medical Doctor Device Identifier Shelf Expiration Date Model / Serial / Lot Pledget Ptfe [place] 4.8mm X 6mm - [id number] Implanted:05/06 by Maite Austin MD at [facility] (Quantity not on file) [id number] / / Procedures Procedure Name Priority Date/Time [...] Routine 05/27/2024 11:12 AM EDT Colon perforation ([facility]) PEP THERAPY Routine 05/27/2024 10:00 AM [...] ANESTHESIA PLACEHOLDER Routine 05/23/2024 1:43 PM EDT WI AN ELECTIVE ENDOTRACHEAL AIRWAY Routine 05/23/2024 1:43 PM EDT WI PART REMOVAL COLON W [...] WHOLE BLOOD Timed 05/21/2024 12:09 PM EDT WI CRITICAL [...] HEPATIC FUNCTION PANEL Routine 11:30 AM EDT WI CRITICAL CARE, ADDL [...] UNSOLICITED RESULTS Routine 05/06/2024 11:25 AM EDT WI INSERT/PLACE FLOW DIRECT CATH Routine 05/06/2024 10:51 AM EDT ANESTHESIA ULTRASOUND GUIDED Routine 05/06/2024 10:51 AM EDT PB ANESTHESIA NON-TIMED PROCEDURE PLACEHOLDER Routine 05/06/2024 10:51 AM EDT WI AN CENTRAL LINE SINGLE LUMEN Routine 05/06/2024 10:51 AM EDT PB ANESTHESIA NON-TIMED PROCEDURE PLACEHOLDER Routine 05/06/2024 10:50 AM EDT QPLUS Routine 05/06/2024 10:36 AM EDT PB ANESTHESIA PLACEHOLDER Routine 05/06/2024 9:34 AM EDT WI AN ELECTIVE ENDOTRACHEAL AIRWAY Routine 05/06/2024 9:34 [...] ECG Atrial Rate 109 BPM MUSE ECG WI Interval 120 ms MUSE ECG QRSD Interval 70 ms MUSE ECG QT Interval 394 ms MUSE ECG QTC Interval 530 ms MUSE ECG P [place] 77 degrees MUSE ECG R [place] 79 degrees MUSE ECG T Wave [place] 100 degrees MUSE ECG Diagnosis Sinus tachycardia MUSE ECG Diagnosis Nonspecific ST and T wave abnormality MUSE ECG Diagnosis MUSE ECG Diagnosis MUSE ECG Diagnosis MUSE ECG Diagnosis Confirmed by Yahaira Gomez ([id number]) on 07/18/2024 9:29:04 PM MUSE ECG 07/18/2024 11:2 2 AM EDT 07/18/2024 9:29 PM EDT us Maite Austin MD ECG ORDERABLES Final Result MUSE ECG * (ABNORMAL) CBC W/O Differential (07/18/2024 10:14 AM EDT) Only the most recent of36 resultswithin the time period is included. Pathologist [facility] WBC Count 13.01(H) 3.70 - 10.30 10*3/uL LAB HEMATOLOGY METHOD 07/18/2024 11:08 AM EDT [facility] RBC Count 3.97 3.90 - 5.20 10*6/uL LAB HEMATOLOGY METHOD 07/18/2024 11:08 AM EDT [facility] HGB 11.5 11.2 - 15.7 g/dL LAB HEMATOLOGY METHOD 07/18/2024 11:08 AM EDT [facility] HCT 35.5 34.0 - 45.0 % LAB HEMATOLOGY METHOD 07/18/2024 11:08 AM EDT [facility] Platelet Count 582(H) 155 - 369 10*3/uL LAB HEMATOLOGY METHOD 07/18/2024 11:08 AM EDT [facility] MCV 89 79 - 98 fL LAB HEMATOLOGY METHOD 07/18/2024 11:08 AM EDT [facility] MCH 29.0 26.0 - 32.0 pg LAB HEMATOLOGY METHOD 07/18/2024 11:08 AM EDT [facility] MCHC 32.4 30.7 - 35.5 g/dL LAB HEMATOLOGY METHOD 07/18/2024 11:08 AM EDT [facility] RDW 14.9(H) 11.5 - 14.5 % LAB HEMATOLOGY METHOD 07/18/2024 11:08 AM EDT [facility] MPV 9.1 8.8 - 12.5 fL LAB HEMATOLOGY METHOD 07/18/2024 11:08 AM EDT [facility] nRBC 0.0 <=0.0 per 100 WBCs LAB HEMATOLOGY METHOD 07/18/2024 11:08 AM EDT [facility] Blood Venous blood specimen / Unknown Venipuncture / Unknown 07/18/2024 10:14 AM EDT 07/18/2024 10:14 AM EDT us Maite Austin MD LAB BLOOD ORDERABLES Final Resu lt [facility] [address] [place] [address] * (ABNORMAL) Basic Metabolic Panel, Plasma (07/18/2024 10:14 AM EDT) Only the most recent of24 resultswithin the time period is included. Glucose, Plasma 126(H) 74 - 99 mg/dL 07/18/2024 12:13 PM EDT [facility] BUN, Plasma 5(L) 7 - 21 mg/dL 07/18/2024 12:13 PM EDT [facility] Creatinine, Plasma 0.54(L) 0.60 - 1.10 mg/dL 07/18/2024 12:13 PM EDT [facility] BUN/Creatinine Ratio 9 07/18/2024 12:13 PM EDT [facility] Sodium, Plasma 137 136 - 145 mmol/L 07/18/2024 12:13 PM EDT [facility] Potassium, Plasma 2.5(LL) 3.6 - 4.9 mmol/L 07/18/2024 12:13 PM EDT [facility] Chloride, Plasma 95(L) 97 - 107 mmol/L 07/18/2024 12:13 PM EDT [facility] CO2, Plasma 29 22 - 29 mmol/L 07/18/2024 12:13 PM EDT [facility] Anion Gap 13 6 - 16 mmol/L 07/18/2024 12:13 PM EDT [facility] Total Calcium, Plasma 8.2(L) 8.9 - 10.2 mg/dL 07/18/2024 12:13 PM EDT [facility] eGFRcr 109.6 mL/min/1.7 3m*2 07/18/2024 12:13 PM EDT [facility] Comment:Reported eGFRcr in m L/min/1.73m2 is based the CKD-EPI 2020 equation that does not use a race coefficient. Blood Venous blood specimen / Unknown Venipuncture / Unknown 07/18/2024 10:14 AM EDT 07/18/2024 10:14 AM EDT us Maite Austin MD LAB BLOOD ORDERABLES Final Resu lt [facility] [address] [place] [address] * XR Chest 2 Views (07/18/2024 9:58 [...] - 2.4 mg/dL 06/21/2024 3:52 AM EDT [facility] Blood Venous blood specimen / Unknown Venipuncture / Unknown 06/21/2024 2:59 AM EDT 06/21/2024 3:23 AM EDT us Trinity Yousif COSTUMING SUPERVISOR LAB BLOOD ORDERABLES Final Res ult [facility] [address] [place] [address] * (ABNORMAL) Comprehensive metabolic panel (06/21/2024 2:59 AM EDT) Only the most recent of23 resultswithin the time period is included. Pathologist [facility] Glucose, Plasma 94 74 - 99 mg/dL 06/21/2024 3:52 AM EDT [facility] BUN, Plasma 4(L) 7 - 21 mg/dL 06/21/2024 3:52 AM EDT [facility] Creatinine, Plasma 0.63 0.60 - 1.10 mg/dL 06/21/2024 3:52 AM EDT [facility] BUN/Creatinine Ratio 6 06/21/2024 3:52 AM EDT [facility] Sodium, Plasma 131(L) 136 - 145 mmol/L 06/21/2024 3:52 AM EDT [facility] Potassium, Plasma 3.9 3.6 - 4.9 mmol/L 06/21/2024 3:52 AM EDT [facility] Chloride, Plasma 98 97 - 107 mmol/L 06/21/2024 3:52 AM EDT [facility] CO2, Plasma 25 22 - 29 mmol/L 06/21/2024 3:52 AM EDT [facility] Anion Gap 8 6 - 16 mmol/L 06/21/2024 3:52 AM EDT [facility] Total Calcium, Plasma 8.1(L) 8.9 - 10.2 mg/dL 06/21/2024 3:52 AM EDT [facility] Total Protein 6.7 6.3 - 7.9 g/dL 06/21/2024 3:52 AM EDT [facility] Albumin, Plasma 2.5(L) 3.5 - 5.2 g/dL 06/21/2024 3:52 AM EDT [facility] AST, Plasma 31 10 - 35 U/L 06/21/2024 3:52 AM EDT [facility] ALT, Plasma 54(H) 10 - 35 U/L 06/21/2024 3:52 AM EDT [facility] Alkaline Phosphatase, Plasma 155(H) 35 - 104 U/L 06/21/2024 3:52 AM EDT [facility] Total Bilirubin, Plasma 0.2 0.2 - 1.1 mg/dL 06/21/2024 3:52 AM EDT [facility] eGFRcr 105.6 mL/min/1.7 3m*2 06/21/2024 3:52 AM EDT [facility] Comment:Reported eGFRcr in m L/min/1.73m2 is based the CKD-EPI 2020 equation that does not use a race coefficient. Blood Venous blood specimen / Unknown Venipuncture / Unknown 06/21/2024 2:59 AM EDT 06/21/2024 3:23 AM EDT us Trinity Yousif COSTUMING SUPERVISOR LAB BLOOD ORDERABLES Final Res ult [facility] [address] [place] [address] * N-Terminal Probnp, Plasma (06/20/2024 4:45 AM EDT) Only the most recent of7 resultswithin the time period is included. N-Terminal, PROBNP, Plasma 652 0 - 899 pg/mL 06/20/2024 6:04 AM EDT [facility] Blood Venous blood specimen / Unknown Venipuncture / Unknown 06/20/2024 4:45 AM EDT 06/20/2024 5:24 AM EDT us Dulce Alamo COSTUMING SUPERVISOR LAB BLOOD ORDERABLES Final R esult [facility] [address] [place] [address] * (ABNORMAL) POCT glucose meter (06/17/2024 8:09 PM EDT) Only the most recent of115 resultswithin the time period is included. [facility] POCT Glucose 145(H) 74 - 99 mg/dL [...] Comment 06/17/2024 8:11 PM EDT [facility] High Density Press Laborer ID Ian Vargasunuh 025 8:11 PM EDT [facility] Device ID [id number] 06/17/2024 8:11 PM EDT [facility] Specimen Type POC Capillary 06/17/2024 8:11 PM EDT [facility] Blood Capillary blood specimen / Unknown 06/17/2024 8:09 PM EDT 06/17/2024 8:11 PM EDT us Maite Austin MD LAB POINT OF CARE TE ST DOCKED DEVICE UNSOLICITED RESULTS Final Result Performing Organization Address City/[facility] Co de Phone Number [facility] [address] [place] [address] * SEND JOCELYNE MESSAGE (06/16/2024 8:21 PM EDT) Urine Urine specimen obtained by clean catch procedure / Unknown Non-blood Collection / Unknown 06/16/2024 8:21 PM EDT 06/16/2024 8:26 PM EDT us Trinity Yousif APRN LAB URINE ORDERABLES Final Res ult [facility] [address] [place] [address] * Urine Francis Panel (06/16/2024 8:21 PM EDT) [facility] Extra Sent for Culture 06/16/2024 10:02 PM EDT [facility] Urine Urine specimen obtained by clean catch procedure / Unknown Non-blood Collection / Unknown 06/16/2024 8:21 PM EDT 06/16/2024 8:26 PM EDT Trinity S Yousif COSTUMING SUPERVISOR LAB URINE ORDERABLES Final Res ult Performing Organization Address [facility] Co de Phone Number [facility] [address] [place] [address] * Urinalysis Microscopic Examination (06/16/2024 8:21 PM EDT) Urine Urine specimen obtained by clean catch procedure / Unknown Non-blood Collection / Unknown 06/16/2024 8:21 PM EDT 06/16/2024 8:26 PM EDT Trinity S Yousif COSTUMING SUPERVISOR LAB URINE ORDERABLES Final Res ult Performing Organization Address [facility] de Phone Number [facility] [address] [place] [address] * (ABNORMAL) Urinalysis with reflex microscopic (Culture NOT Included) (06/16/2024 8:21 PM EDT) Only the most recent of2 resultswithin the time period is included. Color, Urine Yellow LAB URINALYSIS - AUTOMATED METHOD 06/16/2024 8:55 PM EDT [facility] Clarity, Urine Clear LAB URINALYSIS - AUTOMATED METHOD 06/16/2024 8:55 PM EDT [facility] Spec [place], Urine 1.013 1.005 - 1.030 LAB URINALYSIS - AUTOMATED METHOD 06/16/2024 8:55 PM EDT [facility] pH, Urine 6.0 5.0 - 8.0 LAB URINALYSIS - AUTOMATED METHOD 06/16/2024 8:55 PM EDT [facility] Protein, Urine Negative Negative mg/dL LAB URINALYSIS - AUTOMATED METHOD 06/16/2024 8:55 PM EDT [facility] Glucose, Urine Negative Negative mg/dL LAB URINALYSIS - AUTOMATED METHOD 06/16/2024 8:55 PM EDT [facility] Ketones, Urine Negative Negative mg/dL LAB URINALYSIS - AUTOMATED METHOD 06/16/2024 8:55 PM EDT [facility] Blood, Urine Negative Negative LAB URINALYSIS - AUTOMATED METHOD 06/16/2024 8:55 PM EDT [facility] Bilirubin, Urine Negative Negative LAB URINALYSIS - AUTOMATED METHOD 06/16/2024 8:55 PM EDT [facility] Urobilinogen, Urine 0.2 0.2 to 1.0 mg/dL LAB URINALYSIS - AUTOMATED METHOD 06/16/2024 8:55 PM EDT [facility] Leukocytes, Urine Large(A) Negative LAB URINALYSIS - AUTOMATED METHOD 06/16/2024 8:55 PM EDT [facility] Nitrite, Urine Negative Negative LAB URINALYSIS - AUTOMATED METHOD 06/16/2024 8:55 PM EDT [facility] RBC, Urine 2 0 to 3 /HPF LAB URINALYSIS - AUTOMATED METHOD 06/16/2024 8:55 PM EDT [facility] WBC, Urine >50(A) 0 to 5 /HPF LAB URINALYSIS - AUTOMATED METHOD 06/16/2024 8:55 PM EDT [facility] Squamous Epithelial Cells 11 - 20(A) 0 to 5 /HPF LAB URINALYSIS - AUTOMATED METHOD 06/16/2024 8:55 PM EDT [facility] Hyaline Casts 0 - 2 0 to 5 /LPF LAB URINALYSIS - AUTOMATED METHOD 06/16/2024 8:55 PM EDT [facility] Bacteria, Urine Present Negative LAB URINALYSIS - AUTOMATED METHOD 06/16/2024 8:55 PM EDT [facility] Renal Tubular Cells Present Absent 06/16/2024 8:55 PM EDT [facility] Transitional Epithelial Cells Present Absent 06/16/2024 8:55 PM EDT [facility] Yeast (Budding and/or Pseudohyphae) Present(A) Absent 06/16/2024 8:55 PM EDT [facility] Urine Urine specimen obtained by clean catch procedure / Unknown Non-blood Collection / Unknown 06/16/2024 8:21 PM EDT 06/16/2024 8:26 PM EDT [facility] - 06/16/2024 8:55 PM EDT Performed by manual method Trinity Yousif APRN LAB URINE ORDERABLES Final Res ult Performing Organization Address [facility] Co de Phone Number [address] [address] * Urine Culture (06/16/2024 8:21 PM EDT) Only the most recent of2 resultswithin the time period is included. Culture <10,000 CFU/mL Mixed urogenital, fecal, or skin quincy present. 06/18/2024 10:03 AM EDT [facility] Urine Urine specimen obtained by clean catch procedure / Unknown Non-blood Collection / Unknown 06/16/2024 8:21 PM EDT 06/16/2024 8:26 PM EDT Trinity Yousif APRN LAB MICROBIOLOGY - GENERAL ORD ERABLES Final Result Performing Organization Address [facility] Co de Phone Number [address] [address] * XR Hip Right 2 or 3 [...] - 41.0 mg/dL 06/15/2024 8:27 AM EDT [facility] Blood Venous blood specimen / Unknown Venipuncture / Unknown 06/15/2024 4:49 AM EDT 06/15/2024 5:28 AM EDT us Trinity Yousif APRN LAB BLOOD ORDERABLES Final Res ult [facility] [address] [place] [address] * CT Head wo IV Contrast (06/14/2024 [...] LAB HEMATOLOGY METHOD 06/14/2024 1:14 AM EDT [facility] pCO2, Venous 46 37 - 52 mmHg LAB HEMATOLOGY METHOD 06/14/2024 1:14 AM EDT [facility] pO2, Venous 36 25 - 40 mmHg LAB HEMATOLOGY METHOD 06/14/2024 1:14 AM EDT [facility] SO2, Measured, Venous 66 65 - 80 % LAB HEMATOLOGY METHOD 06/14/2024 1:14 AM EDT [facility] Base Excess, Venous 4.7(H) -2.0 - 3.0 mmol/L LAB HEMATOLOGY METHOD 06/14/2024 1:14 AM EDT [facility] Bicarbonate, Calculated, Venous 30(H) 22 - 26 mmol/L LAB HEMATOLOGY METHOD 06/14/2024 1:14 AM EDT [facility] Hematocrit, Whole Blood 33.3(L) 34.0 - 45.0 % LAB HEMATOLOGY METHOD 06/14/2024 1:14 AM EDT [facility] Sodium, Whole Blood 129(L) 136 - 145 mmol/L LAB HEMATOLOGY METHOD 06/14/2024 1:14 AM EDT [facility] Potassium, Whole Blood 3.6 3.6 - 4.9 mmol/L LAB HEMATOLOGY METHOD 06/14/2024 1:14 AM EDT [facility] Chloride, Whole Blood 93(L) 97 - 107 mmol/L LAB HEMATOLOGY METHOD 06/14/2024 1:14 AM EDT [facility] Glucose, Whole Blood 106(H) 74 - 99 mg/dL LAB HEMATOLOGY METHOD 06/14/2024 1:14 AM EDT [facility] Lactate, Venous, Whole Blood 0.7 0.5 - 2.2 mmol/L LAB HEMATOLOGY METHOD 06/14/2024 1:14 AM EDT [facility] Ionized Calcium, Whole Blood 4.6 4.6 - 5.1 mg/dL LAB HEMATOLOGY METHOD 06/14/2024 1:14 AM EDT [facility] Blood Venous blood specimen / Unknown (Central Line) Existing Catheter / Unknown 06/14/2024 12:58 AM EDT 06/14/2024 1:13 AM EDT us Maite Austin MD LAB BLOOD ORDERABLES Final Resu lt [facility] [address] [place] [address] * (ABNORMAL) CBC and differential (06/12/2024 3:24 AM EDT) Only the most recent of22 resultswithin the time period is included. WBC Count 10.53(H) 3.70 - 10.30 10*3/uL LAB HEMATOLOGY METHOD 06/12/2024 3:43 AM EDT [facility] RBC Count 3.17(L) 3.90 - 5.20 10*6/uL LAB HEMATOLOGY METHOD 06/12/2024 3:43 AM EDT [facility] HGB 9.3(L) 11.2 - 15.7 g/dL LAB HEMATOLOGY METHOD 06/12/2024 3:43 AM EDT [facility] HCT 29.4(L) 34.0 - 45.0 % LAB HEMATOLOGY METHOD 06/12/2024 3:43 AM EDT [facility] Platelet Count 393(H) 155 - 369 10*3/uL LAB HEMATOLOGY METHOD 06/12/2024 3:43 AM EDT [facility] MCV 93 79 - 98 fL LAB HEMATOLOGY METHOD 06/12/2024 3:43 AM EDT [facility] MCH 29.3 26.0 - 32.0 pg LAB HEMATOLOGY METHOD 06/12/2024 3:43 AM EDT [facility] MCHC 31.6 30.7 - 35.5 g/dL LAB HEMATOLOGY METHOD 06/12/2024 3:43 AM EDT [facility] RDW 15.2(H) 11.5 - 14.5 % LAB HEMATOLOGY METHOD 06/12/2024 3:43 AM EDT [facility] MPV 9.1 8.8 - 12.5 fL LAB HEMATOLOGY METHOD 06/12/2024 3:43 AM EDT [facility] nRBC 0.0 <=0.0 per 100 WBCs LAB HEMATOLOGY METHOD 06/12/2024 3:43 AM EDT [facility] Differential Type Automated LAB HEMATOLOGY METHOD 06/12/2024 3:43 AM EDT [facility] Neutrophils % 54 % LAB HEMATOLOGY METHOD 06/12/2024 3:43 AM EDT [facility] Lymphocytes % 28 % LAB HEMATOLOGY METHOD 06/12/2024 3:43 AM EDT [facility] Monocytes % 11 % LAB HEMATOLOGY METHOD 06/12/2024 3:43 AM EDT [facility] Eosinophils % 2 % LAB HEMATOLOGY METHOD 06/12/2024 3:43 AM EDT [facility] Basophils % 1 % LAB HEMATOLOGY METHOD 06/12/2024 3:43 AM EDT [facility] Immature Granulocytes % 4 % LAB HEMATOLOGY METHOD 06/12/2024 3:43 AM EDT [facility] Neutrophils Absolute 5.65 1.60 - 6.10 10*3/uL LAB HEMATOLOGY METHOD 06/12/2024 3:43 AM EDT [facility] Lymphocytes Absolute 2.99 1.20 - 3.90 10*3/uL LAB HEMATOLOGY METHOD 06/12/2024 3:43 AM EDT [facility] Monocytes Absolute 1.11(H) 0.30 - 0.90 10*3/uL LAB HEMATOLOGY METHOD 06/12/2024 3:43 AM EDT [facility] Eosinophils Absolute 0.25 0.00 - 0.50 10*3/uL LAB HEMATOLOGY METHOD 06/12/2024 3:43 AM EDT [facility] Basophils Absolute 0.13(H) 0.00 - 0.10 10*3/uL LAB HEMATOLOGY METHOD 06/12/2024 3:43 AM EDT [facility] Immature Granulocytes Absolute 0.40(H) 0.00 - 0.06 10*3/uL LAB HEMATOLOGY METHOD 06/12/2024 3:43 AM EDT [facility] Blood Blood sample taken from central line / Unknown (Central Line) Existing Catheter / Unknown 06/12/2024 3:24 AM EDT 06/12/2024 3:34 AM EDT Narrative [facility] - 06/12/2024 3:43 AM EDT Therapeutic decision making should be based on absolute values, rather than percentages. Uriah PHILLIP LAB BLOOD ORDERABLES Final Result [facility] [address] [place] [address] * (ABNORMAL) WBC Differential (06/11/2024 4:32 AM EDT) Only the most recent of3 resultswithin the time period is included. Differential Type Automated LAB HEMATOLOGY METHOD 06/11/2024 8:40 AM EDT [facility] Neutrophils % 63 % LAB HEMATOLOGY METHOD 06/11/2024 8:40 AM EDT [facility] Lymphocytes % 23 % LAB HEMATOLOGY METHOD 06/11/2024 8:40 AM EDT [facility] Monocytes % 8 % LAB HEMATOLOGY METHOD 06/11/2024 8:40 AM EDT [facility] Eosinophils % 2 % LAB HEMATOLOGY METHOD 06/11/2024 8:40 AM EDT [facility] Basophils % 1 % LAB HEMATOLOGY METHOD 06/11/2024 8:40 AM EDT [facility] Immature Granulocytes % 3 % LAB HEMATOLOGY METHOD 06/11/2024 8:40 AM EDT [facility] Immature Granulocytes Absolute 0.43(H) 0.00 - 0.06 10*3/uL LAB HEMATOLOGY METHOD 06/11/2024 8:40 AM EDT [facility] Neutrophils Absolute 10.15(H) 1.60 - 6.10 10*3/uL LAB HEMATOLOGY METHOD 06/11/2024 8:40 AM EDT [facility] Lymphocytes Absolute 3.53 1.20 - 3.90 10*3/uL LAB HEMATOLOGY METHOD 06/11/2024 8:40 AM EDT [facility] Monocytes Absolute 1.18(H) 0.30 - 0.90 10*3/uL LAB HEMATOLOGY METHOD 06/11/2024 8:40 AM EDT [facility] Basophils Absolute 0.15(H) 0.00 - 0.10 10*3/uL LAB HEMATOLOGY METHOD 06/11/2024 8:40 AM EDT [facility] Eosinophils Absolute 0.25 0.00 - 0.50 10*3/uL LAB HEMATOLOGY METHOD 06/11/2024 8:40 AM EDT [facility] Blood Venous blood specimen / Unknown 06/11/2024 4:32 AM EDT 06/11/2024 4:32 AM EDT us Uriah PHILLIP LAB BLOOD ORDERABLES Final Result Performing Organization Address City/[facility]/ZIP Co de Phone Number [facility] [address] [place] [address] * Lavender Top (06/11/2024 4:32 AM EDT) Only the most recent of3 resultswithin the time period is included. Extra Hold for add-ons 06/11/2024 7:02 AM EDT [facility] Comment:Auto resulted. Blood Venous blood specimen / Unknown 06/11/2024 4:32 AM EDT 06/11/2024 4:32 AM EDT us Maite Austin MD LAB BLOOD ORDERABLES Final Resu lt Performing Organization Address City/[facility]/ZIP Co de Phone Number [facility] [address] [place] [address] * Light Green Top (06/11/2024 4:32 AM EDT) Only the most recent of3 resultswithin the time period is included. Extra Hold for add-ons 06/11/2024 7:02 AM EDT [facility] Comment:Auto resulted. Blood Venous blood specimen / Unknown 06/11/2024 4:32 AM EDT 06/11/2024 4:32 AM EDT us Maite Austin MD LAB BLOOD ORDERABLES Final Resu lt Performing Organization Address City/[facility]/ZIP Co de Phone Number [facility] [address] [place] [address] * (ABNORMAL) Procalcitonin (06/11/2024 4:32 AM EDT) Only the most recent of5 resultswithin the time period is included. Procalcitonin, Plasma 0.10(H) <0.09 ng/mL 06/11/2024 8:43 AM EDT [facility] Blood Venous blood specimen / Unknown 06/11/2024 4:32 AM EDT 06/11/2024 4:32 AM EDT Narrative [facility] - 06/11/2024 8:43 AM EDT [...] predict 28 day mortality risk. Please consult [email or web address] for more information. Test performed at [facility], Core Laboratory. Uriah PHILLIP LAB BLOOD ORDERABLES Final Result Performing Organization Address [facility]/ZIP Co de Phone Number [facility] [address] [place] [address] * (ABNORMAL) Body Fluid Cell Count w/ Diff (06/04/2024 10:17 AM EDT) Color, Body fluid Brown LAB HEMATOLOGY METHOD 06/04/2024 5:36 PM EDT [facility] Appearance, Body fluid Cloudy(A) LAB HEMATOLOGY METHOD 06/04/2024 5:36 PM EDT [facility] Volume, Body fluid 5.0 cc LAB HEMATOLOGY METHOD 06/04/2024 5:36 PM EDT [facility] Fluid Container Specimen received in miscellaneous container LAB HEMATOLOGY METHOD 06/04/2024 5:36 PM EDT [facility] Red Blood Cell Count, Body fluid LAB HEMATOLOGY METHOD 06/04/2024 5:36 PM EDT [facility] Comment:Unable to quantitate due to cell deterioration. Total Nucleated Cell Count, Body fluid LAB HEMATOLOGY METHOD 06/04/2024 5:36 PM EDT [facility] Comment:Unable to quantitate due to cell deterioration. Neutrophils %, Body fluid LAB HEMATOLOGY METHOD 06/04/2024 5:36 PM EDT [facility] Comment:Unable to quantitate due to cell deterioration. Lymphocytes %, Body fluid LAB HEMATOLOGY METHOD 06/04/2024 5:36 PM EDT [facility] Comment:Unable to quantitate due to cell deterioration. Monocytes/Macr ophages %, Body fluid LAB HEMATOLOGY METHOD 06/04/2024 5:36 PM EDT [facility] Comment:Unable to quantitate due to cell deterioration. Eosinophils %, Body fluid LAB HEMATOLOGY METHOD 06/04/2024 5:36 PM EDT [facility] Comment:Unable to quantitate due to cell deterioration. Lining/Mesothe lial Cells %, Body fluid LAB HEMATOLOGY METHOD 06/04/2024 5:36 PM EDT [facility] Comment:Unable to quantitate due to cell deterioration. Neutrophils Absolute (PMN), Body fluid LAB HEMATOLOGY METHOD 06/04/2024 5:36 PM EDT [facility] Comment:Unable to quantitate due to cell deterioration. Lymphocytes Absolute, Body fluid LAB HEMATOLOGY METHOD 06/04/2024 5:36 PM EDT [facility] Comment:Unable to quantitate due to cell deterioration. Monocytes/Macr ophages Absolute, Body fluid LAB HEMATOLOGY METHOD 06/04/2024 5:36 PM EDT [facility] Comment:Unable to quantitate due to cell deterioration. Eosinophils Absolute, Body fluid LAB HEMATOLOGY METHOD 06/04/2024 5:36 PM EDT [facility] Comment:Unable to quantitate due to cell deterioration. Basophils Absolute, Body fluid LAB HEMATOLOGY METHOD 06/04/2024 5:36 PM EDT [facility] Comment:Unable to quantitate due to cell deterioration. Lining/Mesothe lial Cells Absolute, Body fluid LAB HEMATOLOGY METHOD 06/04/2024 5:36 PM EDT [facility] Comment:Unable to quantitate due to cell deterioration. Basophils %, Body fluid LAB HEMATOLOGY METHOD 06/04/2024 5:36 PM EDT [facility] Comment:Unable to quantitate due to cell deterioration. Body Fluid Topography unknown / Unknown Non-blood Collection / Unknown 06/04/2024 10:17 AM EDT 06/04/2024 10:51 AM EDT Maite Austin MD LAB BODY FLUIDS AND STOOLS ORDERABLES NO SPECIMEN TYPE/SOURCE Final Result Performing Organization Address City/[facility]/ZIP Co de Phone Number [facility] [address] [place] [address] * AFB Culture, Non Respiratory Source and Acid Fast Stain (06/04/2024 10:17 AM EDT) AFB Culture No Mycobacterial Growth at 6 Weeks 07/17/2024 11:29 AM EDT [facility] Acid Fast Stain No acid fast bacilli seen 07/17/2024 11:29 AM EDT [facility] Body Fluid Topography unknown / Unknown Non-blood Collection / Unknown 06/04/2024 10:17 AM EDT 06/04/2024 10:55 AM EDT us Maite Austin MD LAB MICROBIOLOGY - GENERAL ORDE RABLES Final Result [facility] [address] [place] [address] * (ABNORMAL) Body Fluid Culture and Gram Stain (06/04/2024 10:17 AM EDT) Culture No growth at day 4 2024 7:41 AM EDT [facility] Gram Stain Result No intact cells seen(A) 06/07/2024 7:41 AM EDT [facility] Gram Stain Result No polymorphonuclear leukocytes seen(A) 06/07/2024 7:41 AM EDT [facility] Gram Stain Result No organisms seen(A) 06/07/2024 7:41 AM EDT [facility] Body Fluid Topography unknown / Unknown Non-blood Collection / Unknown 06/04/2024 10:17 AM EDT 06/04/2024 10:55 AM EDT us Maite Austin MD LAB MICROBIOLOGY - [facility] Final Result [facility] [address] [place] [address] * CT Guided Drain Placement Peritoneal or [...] the paracolic gutter presenting for drainage PHYSICIANS: lumber piler operator: CHRISTELLE ELMORE MD Secondary hydroelectric station operator chief: None RAD DOSE: Total DLP 413 mGycm [...] the paracolic gutter presenting for drainage PHYSICIANS: lumber piler operator: CHRISTELLE ELMORE MD Secondary hydroelectric station operator chief: None RAD DOSE: Total DLP 413 mGycm [...] MD on 06/04/2024 12:43 PM Lorena Phillips COSTUMING SUPERVISOR IMG CT PROCEDURES Final Resu lt * (ABNORMAL) Renal Function Panel, Plasma (06/02/2024 1:02 AM EDT) Only the most recent of28 resultswithin the time period is included. Glucose, Plasma 507(HH) 74 - 99 mg/dL 06/02/2024 1:47 AM EDT [facility] BUN, Plasma 11 7 - 21 mg/dL 06/02/2024 1:47 AM EDT [facility] Creatinine, Plasma 0.60 0.60 - 1.10 mg/dL 06/02/2024 1:47 AM EDT [facility] BUN/Creatinine Ratio 18 06/02/2024 1:47 AM EDT [facility] Sodium, Plasma 125(L) 136 - 145 mmol/L 06/02/2024 1:47 AM EDT [facility] Potassium, Plasma 4.8 3.6 - 4.9 mmol/L 06/02/2024 1:47 AM EDT [facility] Chloride, Plasma 93(L) 97 - 107 mmol/L 06/02/2024 1:47 AM EDT [facility] CO2, Plasma 20(L) 22 - 29 mmol/L 06/02/2024 1:47 AM EDT [facility] Anion Gap 12 6 - 16 mmol/L 06/02/2024 1:47 AM EDT [facility] Total Calcium, Plasma 7.9(L) 8.9 - 10.2 mg/dL 06/02/2024 1:47 AM EDT [facility] Phosphorus, Plasma 5.8(H) 2.5 - 4.5 mg/dL 06/02/2024 1:47 AM EDT [facility] Albumin, Plasma 2.2(L) 3.5 - 5.2 g/dL 06/02/2024 1:47 AM EDT [facility] eGFRcr 106.8 mL/min/1.7 3m*2 06/02/2024 1:47 AM EDT [facility] Comment:Reported eGFRcr in m L/min/1.73m2 is based the CKD-EPI 2020 equation that does not use a race coefficient. Blood Venous blood specimen / Unknown Venipuncture / Unknown 06/02/2024 1:02 AM EDT 06/02/2024 1:16 AM EDT Lora Llanes COSTUMING SUPERVISOR LAB BLOOD ORDERABLES Final Result [facility] [address] [place] [address] * CT Abdomen Pelvis w IV Contrast [...] LAB HEMATOLOGY METHOD 06/01/2024 9:01 AM EDT [facility] Blood Venous blood specimen / Unknown Venipuncture / Unknown 06/01/2024 8:42 AM EDT 06/01/2024 8:59 AM EDT Shola Sheridan APRN LAB BLOOD ORDERABLES Final R esult [facility] [address] [place] [address] * [place] NEGATIVE PRESSURE WOUND THERAPY DME [...] of13 resultswithin the time period is included. [facility] Phosphorus, Plasma 4.1 2.5 - 4.5 mg/dL 05/29/2024 7:43 AM EDT [facility] Blood Venous blood specimen / Unknown Venipuncture / Unknown 05/29/2024 7:00 AM EDT 05/29/2024 7:06 AM EDT Maite Austin MD LAB BLOOD ORDERABLES Final Resu lt [facility] [address] [place] [address] * Morphology (05/29/2024 5:35 AM EDT) Only the most recent of12 resultswithin the time period is included. [facility] Polychromasia Slight LAB HEMATOLOGY METHOD 05/29/2024 8:34 AM EDT [facility] RBC Morphology Slide Reviewed LAB HEMATOLOGY METHOD 05/29/2024 8:34 AM EDT [facility] Platelet Estimate Platelet smear estimate consistent with automated count LAB HEMATOLOGY METHOD 05/29/2024 8:34 AM EDT [facility] Blood Blood sample taken from central line / Unknown Venipuncture / Unknown 05/29/2024 5:35 AM EDT 05/29/2024 5:56 AM EDT Maite Austin MD LAB BLOOD ORDERABLES Final Resu lt [facility] [address] [place] [address] * (ABNORMAL) Manual Differential (05/29/2024 5:35 AM EDT) Only the most recent of12 resultswithin the time period is included. Blasts % 0 % LAB HEMATOLOGY METHOD 05/29/2024 8:34 AM EDT [facility] Promyelocytes % 0 % LAB HEMATOLOGY METHOD 05/29/2024 8:34 AM EDT [facility] Myelocytes % 4 % LAB HEMATOLOGY METHOD 05/29/2024 8:34 AM EDT [facility] Metamyelocytes % 5 % LAB HEMATOLOGY METHOD 05/29/2024 8:34 AM EDT [facility] Neutrophils % 82 % LAB HEMATOLOGY METHOD 05/29/2024 8:34 AM EDT [facility] Lymphocytes % 3 % LAB HEMATOLOGY METHOD 05/29/2024 8:34 AM EDT [facility] Reactive Lymphocytes % 1 % LAB HEMATOLOGY METHOD 05/29/2024 8:34 AM EDT [facility] Monocytes % 3 % LAB HEMATOLOGY METHOD 05/29/2024 8:34 AM EDT [facility] Eosinophils % 2 % LAB HEMATOLOGY METHOD 05/29/2024 8:34 AM EDT [facility] Basophils % 0 % LAB HEMATOLOGY METHOD 05/29/2024 8:34 AM EDT [facility] Blasts Absolute 0.00 10*3/UL LAB HEMATOLOGY METHOD 05/29/2024 8:34 AM EDT [facility] Promyelocytes Absolute 0.00 10*3/uL LAB HEMATOLOGY METHOD 05/29/2024 8:34 AM EDT [facility] Myelocytes Absolute 0.90 10*3/uL LAB HEMATOLOGY METHOD 05/29/2024 8:34 AM EDT [facility] Metamyelocytes Absolute 1.13 10*3/uL LAB HEMATOLOGY METHOD 05/29/2024 8:34 AM EDT [facility] Neutrophils Absolute 18.47(H) 1.60 - 6.10 10*3/uL LAB HEMATOLOGY METHOD 05/29/2024 8:34 AM EDT [facility] Lymphocytes Absolute 0.68(L) 1.20 - 3.90 10*3/uL LAB HEMATOLOGY METHOD 05/29/2024 8:34 AM EDT [facility] Reactive Lymphocytes Absolute 0.23 10*3/uL LAB HEMATOLOGY METHOD 05/29/2024 8:34 AM EDT [facility] Monocytes Absolute 0.68 0.30 - 0.90 10*3/uL LAB HEMATOLOGY METHOD 05/29/2024 8:34 AM EDT [facility] Eosinophils Absolute 0.45 0.00 - 0.50 10*3/uL LAB HEMATOLOGY METHOD 05/29/2024 8:34 AM EDT [facility] Basophils Absolute 0.00 0.00 - 0.10 10*3/uL LAB HEMATOLOGY METHOD 05/29/2024 8:34 AM EDT [facility] Blood Blood sample taken from central line / Unknown Venipuncture / Unknown 05/29/2024 5:35 AM EDT 05/29/2024 5:56 AM EDT us Maite Austin MD LAB BLOOD ORDERABLES Final Resu lt [facility] [address] [place] [address] * [place] NEGATIVE PRESSURE WOUND THERAPY DME [...] Fi nal Result * WI CRITICAL CARE, E/M 30-74 MINUTES [...] BLOOD TRANSFUSION ORDERABLES Fi nal Result * [place] CRITICAL [...] TEST ORDERABLES Final Result Performing Organization Address [facility]/[place]UST Co de Phone Number BLOOD BANK [address] * Prepare Leukocyte Reduced RBC: 1 Units (05/26/2024 2:21 PM EDT) Only the most recent of6 resultswithin the time period is included. Pathologist [facility] Product Code [id number] BLOO D BANK Dispense Status Transfused BLOOD BANK Blood Expiration Date [id number] BLOOD BANK Unit Number [id number] CH B LOOD BANK Product Blood Type 7300 BLOOD BANK Blood Type B+ BLOOD BANK Crossmatch Compatible BLOOD BANK Other Maite Austin MD BLOOD BANK PRODUCT ORDERABLES F inal Result Performing Organization Address [facility] de Phone Number BLOOD BANK [address] * (ABNORMAL) Hemoglobin and Hematocrit, Blood (05/25/2024 8:32 PM EDT) Only the most recent of5 resultswithin the time period is included. [facility] HGB 7.2(L) 11.2 - 15.7 g/dL LAB HEMATOLOGY METHOD 05/25/2024 8:51 PM EDT [facility] HCT 23.1(L) 34.0 - 45.0 % LAB HEMATOLOGY METHOD 05/25/2024 8:51 PM EDT [facility] Blood Arterial blood specimen / Unknown Venipuncture / Unknown 05/25/2024 8:32 PM EDT 05/25/2024 8:45 PM EDT Lora Llanes APRN LAB BLOOD ORDERABLES Final Result Performing Organization Address City/[facility]/[place] Co de Phone Number [facility] [address] [place] [address] * [place] CRITICAL CARE, E/M 30-74 MINUTES [...] LAB HEMATOLOGY METHOD 05/23/2024 8:04 PM EDT [facility] pCO2, Arterial 44 35 - 48 mmHg LAB HEMATOLOGY METHOD 05/23/2024 8:04 PM EDT [facility] pO2, Arterial 182(H) 83 - 108 mmHg LAB HEMATOLOGY METHOD 05/23/2024 8:04 PM EDT [facility] SO2, Measured, Arterial 100(H) 94 - 98 % LAB HEMATOLOGY METHOD 05/23/2024 8:04 PM EDT [facility] Base Excess, Arterial -5.1(L) -2.0 - 3.0 mmol/L LAB HEMATOLOGY METHOD 05/23/2024 8:04 PM EDT [facility] Bicarbonate, Calculated, Arterial 21(L) 22 - 26 mmol/L LAB HEMATOLOGY METHOD 05/23/2024 8:04 PM EDT [facility] Hematocrit, Whole Blood 34.4 34.0 - 45.0 % LAB HEMATOLOGY METHOD 05/23/2024 8:04 PM EDT [facility] Sodium, Whole Blood 133(L) 136 - 145 mmol/L LAB HEMATOLOGY METHOD 05/23/2024 8:04 PM EDT [facility] Potassium, Whole Blood 5.0(H) 3.6 - 4.9 mmol/L LAB HEMATOLOGY METHOD 05/23/2024 8:04 PM EDT [facility] Chloride, Whole Blood 107 97 - 107 mmol/L LAB HEMATOLOGY METHOD 05/23/2024 8:04 PM EDT [facility] Glucose, Whole Blood 266(H) 74 - 99 mg/dL LAB HEMATOLOGY METHOD 05/23/2024 8:04 PM EDT [facility] Ionized Calcium, Whole Blood 4.2(L) 4.6 - 5.1 mg/dL LAB HEMATOLOGY METHOD 05/23/2024 8:04 PM EDT [facility] Lactate, Arterial, Whole Blood 2.0(H) 0.5 - 1.6 mmol/L LAB HEMATOLOGY METHOD 05/23/2024 8:04 PM EDT [facility] Blood Arterial blood specimen / Unknown Arterial Puncture / Unknown 05/23/2024 7:54 PM EDT 05/23/2024 8:02 PM EDT us Maite Austin MD LAB BLOOD ORDERABLES Final Resu lt [facility] [address] [place] [address] * Surgical Pathology Exam (05/23/2024 4:09 PM EDT) Case Report Surgical Pathology Case: [id number] Authorizing Provider: Lidia Troncoso MD Collected: 05/23/2024 1609 Ordering Location: [facility] Received: 05/24/2024 0749 Pathologist: Elvia Morgan MD Specimen: Other (specify site), Left Colon (fresh for permanent) 05/28/2024 11:11 AM EDT [facility] Final Diagnosis LARGE INTESTINE. 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 - INVOLVEMENT OF ONE RESECTION MARGIN. 05/28/2024 11:11 AM EDT [facility] at 1111 EDT Clinical Information Colon perforation (CMS/HCC) [K63.1] s/p 4vCABG on 05/06/24. 05/28/2024 11:11 AM T [facility] Gross Description A. LEFT COLON [...] x 7.8 cm unremarkable mesentery is submitted. Machine Pie Maker sections are submitted as follows: A1: Resection margin A2: Opposite resection margin A3-A4: Area of defect, full-thickness A5: Area of fibrosis and stricturing A6: Area of fibrosis and stricturing A7: Area of fibrosis and stricturing A8: Uninvolved colonic mucosa A9: Junction between involved in uninvolved mucosa A10: Two lymph node candidates, entirely submitted Cold Time: 2h 41m 05/28/2024 11:11 AM [facility] Note: A resident was involved in the service. I attest I examined the relevant preparations for the specimens and confirmed the diagnosis or interpretation. 05/28/2024 11:11 AM [facility] Tissue Topography unknown / Unknown 05/23/2024 4:09 PM EDT 05/24/2024 7:49 AM EDT Comment:Pre-op diagnosis: Colon perforation (CMS/HCC) [K63.1] Lidia Troncoso MD LAB PATHOLOGY ORDERABLES Final Result [facility] [address] [place] [address] * PB ANESTHESIA NON-TIMED PROCEDURE PLACEHOLDER (05/23/2024 [...] tape. Seldinger technique used Staffing Performed: KERRIE CIVIL ENGINEERING PROFESSOR: Mayda Bhatti CRNA Roslyn Villanueva MD ANESTHESIA ORDERABLES Final Re sult * Peripheral IV (05/23/2024 2:39 PM EDT) Mayda Vizcaino CRNA - 05/23/2024 2:39 PM EDT Mayda Bhatti CRNA 05/23/2024 2:40 PM Peripheral IV Inserted by: Mayda Bhatti CRNA Placement Needle size: 18 G Location: hand Site prep: alcohol Technique: anatomical landmarks Attempts: 1 Result [facility] Roslyn Villanueva MD ANESTHESIA ORDERABLES Final Re sult * WI AN ELECTIVE ENDOTRACHEAL AIRWAY, PB ANESTHESIA PLACEHOLDER (05/23/2024 1:43 PM EDT) Narrative Mayda Bhatti CRNA - 05/23/2024 1:43 PM EDT Mayda Bhatti CRNA 05/23/2024 2:13 PM Airway Date/Time: 05/23/2024 1:43 PM Reason: elective Airway not difficult General Information and Staff Patient location during procedure: OR CIVIL ENGINEERING PROFESSOR: Mayda Bhatti CRNA Other anesthesia staff: Db [...] resultswithin the time period is included. Pathologist [facility] Prothrombin Time 13.6 12.0 - 14.3 sec LAB COAGULATION METHOD 05/23/2024 1:34 PM EDT [facility] INR 1.0 0.9 - 1.1 LAB COAGULATION METHOD 05/23/2024 1:34 PM EDT [facility] Blood Venous blood specimen / Unknown Venipuncture / Unknown 05/23/2024 12:41 PM EDT 05/23/2024 1:04 PM EDT Narrative [facility] - 05/23/2024 1:34 PM EDT OPTIMAL INR RANGES FOR PATIENT ON ORAL ANTICOAGULANT THERAPY Prevention of venous thromboembolism INR 2.0 to 3.0 In patients with heart disease: Atrial fibrillation INR 2.0 to 3.0 Valvular heart disease INR 2.0 to 3.0 Tissue heart valves INR 2.0 to 3.0 Mechanical prosthetic valves INR 2.5 to 3.5 Prevention of recurrent OH INR 2.5 to 3.5 us Maite Austin MD LAB BLOOD ORDERABLES Final Resu lt [facility] [address] [place] [address] * (ABNORMAL) Ionized calcium, whole blood (05/23/2024 11:40 AM EDT) Only the most recent of12 resultswithin the time period is included. Ionized Calcium, Whole Blood 4.3(L) 4.6 - 5.1 mg/dL LAB HEMATOLOGY METHOD 05/23/2024 11:48 AM EDT [facility] Blood Venous blood specimen / Unknown Venipuncture / Unknown 05/23/2024 11:40 AM EDT 05/23/2024 11:47 AM EDT Reyna Obregon APRN LAB BLOOD ORDERABLES Namrata l Result Performing Organization Address City/[facility]/ZIP Co de Phone Number [facility] [address] [place] [address] * Blood Culture (Aerobic/Anaerobet Set) (05/23/2024 10:20 AM EDT) Only the most recent of3 resultswithin the time period is included. [facility] Culture No growth at day 5 ELI 05/28/2024 11:01 AM EDT [facility] Blood Venous blood specimen / Unknown Venipuncture / Unknown 05/23/2024 10:20 AM EDT 05/23/2024 10:28 AM EDT us Maite Austin MD LAB MICROBIOLOGY - GENERAL ORDCaden [facility] Final Result Performing Organization Address [facility] [place] [address] * CT Abdomen Pelvis wo IV Contrast [...] MD on 05/22/2024 6:08 PM Reyna Obregon COSTUMING SUPERVISOR IMG CT PROCEDURES Final R esult * WI CRITICAL CARE, E/M 30-74 MINUTES [...] at day 1 05/22/2024 8:46 AM EDT [facility] Swab (Nares and Jacey Rectal) 05/21/2024 11:00 AM EDT 05/21/2024 11:55 AM EDT us Tom Dyson MD LAB MICROBIOLOGY - GEN ERAL ORDERABLES Final Result [facility] [address] [place] [address] * [place] CRITICAL CARE, E/M 30-74 MINUTES [...] - 63 U/L 05/20/2024 2:51 AM EDT [facility] Blood Venous blood specimen / Unknown Venipuncture / Unknown 05/20/2024 2:15 AM EDT 05/20/2024 2:21 AM EDT us Marybel Suarez APRN LAB BLOOD ORDERABLES Fin al Result [facility] [address] [place] [address] * [place] CRITICAL CARE, E/M 30-74 MINUTES [...] 76 <150 mg/dL 05/19/2024 1:45 PM EDT [facility] Comment: Triglyceride Reference Range (age >17 years): Desirable: <150 mg/dL Borderline high: 150 to 199 mg/dL High: 200 to 499 mg/dL Very high: >499 mg/dL Increased risk of pancreatitis: >1000 mg/dL Fasting greater than or equal to 12 hours? Unknown 05/19/2024 1:45 PM EDT [facility] Blood Venous blood specimen / Unknown Venipuncture / Unknown 05/19/2024 11:42 AM EDT 05/19/2024 12:00 PM EDT us Maite Austin MD LAB BLOOD ORDERABLES Final Resu lt [facility] [address] [place] [address] * [place] CRITICAL CARE, ADDL 30 MIN [...] Holt RN Authorized by: Maite Austin MD [place] Protocol: Verbal consent obtained?: Yes Written consent obtained?: Yes Risks and benefits: Risks, benefits and alternatives were discussed Consent given by: Patient and power of banking attorney (Written Consent obtained by [email or web address] VAT/PICC RN from Patient's family/NOK and verified [...] Left Location (Adult): Basilic vein (Largest vein, [id number] ratio 27%) Site selection rationale: RUE PIV and right radial arterial line. Patient position: Supine Catheter Lot #: [id number] Catheter ion implant machine operator: [employer] PICC Provena Catheter placed: Double [...] placed on end of each lumen hub. [place] limb precaution armband placed on left wrist for PICC precautions while PICC is in place (No sticks/BP's). VAT consult completed. us Maite Austin MD IV THERAPY ORDERABLES Edited Re sult - Final * Comprehensive GI Panel by PCR (05/18/2024 11:47 PM EDT) Campylobacter PCR Result Not Detected Not Detected 05/19/2024 1:41 PM EDT [facility] Plesiomonas shigelloides PCR Result Not Detected Not Detected 05/19/2024 1:41 PM EDT [facility] Salmonella PCR Result Not Detected Not Detected 05/19/2024 1:41 PM EDT [facility] Vibrio species PCR Result Not Detected Not Detected 05/19/2024 1:41 PM EDT [facility] Vibrio cholerae PCR Result Not Detected Not Detected 05/19/2024 1:41 PM EDT [facility] Yersinia enterocolitica PCR Result Not Detected Not Detected 05/19/2024 1:41 PM EDT [facility] Enteroaggregative E. coli (EAEC) PCR Result Not Detected Not Detected 05/19/2024 1:41 PM EDT [facility] Enteropathogenic E. coli (EPEC) PCR Result Not Detected Not Detected 05/19/2024 1:41 PM EDT [facility] Enterotoxigenic E. coli (ETEC) lt/st PCR Result Not Detected Not Detected 05/19/2024 1:41 PM EDT [facility] Shiga-like Toxin-Producing E.coli (STEC) stx1/stx2 PCR Resu Not Detected Not Detected 05/19/2024 1:41 PM EDT [facility] E coli 0157 PCR Result Not Detected Not Detected 05/19/2024 1:41 PM EDT [facility] Shigella/Enteroinvas alexsandra E. coli (EIEC) PCR Result Not Detected Not Detected 05/19/2024 1:41 PM EDT [facility] Cryptosporidium PCR Result Not Detected Not Detected 05/19/2024 1:41 PM EDT [facility] Cyclospora cayetanensis PCR Result Not Detected Not Detected 05/19/2024 1:41 PM EDT [facility] Entamoeba histolytica PCR Result Not Detected Not Detected 05/19/2024 1:41 PM EDT [facility] Giardia duodenalis (aka Giardia lamblia) PCR Result Not Detected Not Detected 05/19/2024 1:41 PM EDT [facility] Adenovirus F 40/41 PCR Result Not Detected Not Detected 05/19/2024 1:41 PM EDT [facility] Astrovirus PCR Result Not Detected Not Detected 05/19/2024 1:41 PM EDT [facility] Norovirus GI/GII PCR Result Not Detected Not Detected 05/19/2024 1:41 PM EDT [facility] Rotavirus A PCR Result Not Detected Not Detected 05/19/2024 1:41 PM EDT [facility] Sapovirus PCR Result Not Detected Not Detected 05/19/2024 1:41 PM EDT [facility] Stool Rectum structure / Unknown Non-blood Collection / Unknown 05/18/2024 11:47 PM EDT 05/19/2024 2:07 AM EDT Narrative [facility] - 05/19/2024 1:41 PM EDT [...] MICROBIOLOGY - GENER AL ORDERABLES Final Result [facility] [address] [place] [address] * Clostridiodes (Clostridium) difficile PCR (05/18/2024 11:47 PM EDT) C difficile PCR toxin B gene DNA Result Not Detected Not Detected 05/19/2024 7:36 AM EDT [facility] Stool Rectum structure / Unknown Non-blood Collection / Unknown 05/18/2024 11:47 PM EDT 05/19/2024 2:07 AM EDT Narrative [facility] - 05/19/2024 7:36 AM EDT [...] MICROBIOLOGY - GENER AL ORDERABLES Final Result [facility] [address] [place] [address] * [place] CRITICAL CARE, E/M 30-74 MINUTES (05/18/2024 2:28 PM EDT) Narrative Dieudonne Cramer MD - 05/18/2024 2:28 PM EDT Dieudonne Cramer MD 05/18/2024 2:31 PM Critical Care Performed by: Dieuodnne Cramer MD Authorized by: Dieudonne Cramer MD [...] - 36 U/L 05/18/2024 5:04 AM EDT [facility] Blood Arterial blood specimen / Unknown Venipuncture / Unknown 05/18/2024 4:00 AM EDT 05/18/2024 4:31 AM EDT Edson Mcclure DO LAB BLOOD ORDERABLES Final R esult [facility] [address] [place] [address] * (ABNORMAL) Amylase, Plasma (05/18/2024 4:00 AM EDT) Amylase 129(H) 27 - 114 U/L 05/18/2024 5:04 AM EDT [facility] Blood Arterial blood specimen / Unknown Venipuncture / Unknown 05/18/2024 4:00 AM EDT 05/18/2024 4:31 AM EDT Edson Mcclure DO LAB BLOOD ORDERABLES Final R esult [facility] [address] [place] [address] * (ABNORMAL) Hepatic function panel (05/18/2024 4:00 AM EDT) Only the most recent of4 resultswithin the time period is included. Conjugated Bilirubin, Plasma 0.6(H) <=0.3 mg/dL 05/18/2024 5:04 AM EDT [facility] Alkaline Phosphatase, Plasma 113(H) 35 - 104 U/L 05/18/2024 5:04 AM EDT [facility] Total Bilirubin, Plasma 1.1 0.2 - 1.1 mg/dL 05/18/2024 5:04 AM EDT [facility] Albumin, Plasma 2.1(L) 3.5 - 5.2 g/dL 05/18/2024 5:04 AM EDT [facility] Total Protein 5.5(L) 6.3 - 7.9 g/dL 05/18/2024 5:04 AM EDT [facility] ALT, Plasma 24 10 - 35 U/L 05/18/2024 5:04 AM EDT [facility] AST, Plasma 53(H) 10 - 35 U/L 05/18/2024 5:04 AM EDT [facility] Blood Arterial blood specimen / Unknown Venipuncture / Unknown 05/18/2024 4:00 AM EDT 05/18/2024 4:31 AM EDT Edson Mcclure DO LAB BLOOD ORDERABLES Final R esult [facility] [address] [place] [address] * CT Chest w IV Contrast (05/18/2024 [...] Total DLP (Dose-Length Product): 1602.32 mGy.cm (accession [id number]), 1602.32 mGy.cm (accession [id number]). Please note: The reported value represents the [...] Total DLP (Dose-Length Product): 1602.32 mGy.cm (accession [id number]),1602.32 mGy.cm (accession [id number]). Please note: The reported valuerepresents the total [...] Detected Not Detected 05/18/2024 12:44 AM EDT [facility] Swab Both anterior nares / Unknown Non-blood Collection / Unknown 05/17/2024 10:58 PM EDT 05/17/2024 11:21 PM EDT Narrative [facility] - 05/18/2024 12:44 AM EDT This test is FDA approved for use with nares swab specimens using the eSwabs. This test is used for clinical purposes. It should not be regarded as investigational or for research. This laboratory is certified under the Clinical Laboratory improvement Amendments of 1988 (CLIA-88 as qualified to perform high complexity clinical laboratory testing. us Marybel Suarez COSTUMING SUPERVISOR LAB MICROBIOLOGY - GENER AL ORDERABLES Final Result Performing Organization Address City/[facility]/ZIP Co de Phone Number [facility] [address] [place] [address] * Fungal Blood Culture (05/17/2024 6:13 PM EDT) Culture No Fungal Growth at 6 Weeks 07/07/2024 11:43 AM EDT [facility] Blood Venous blood specimen / Unknown Venipuncture / Unknown 05/17/2024 6:13 PM EDT 05/17/2024 6:32 PM EDT us Lora Llanes COSTUMING SUPERVISOR LAB MICROBIOLOGY - GENERAL ORDERABLES Final Result Performing Organization Address City/[facility]/[place] [address] * Beta Glucan (Fungitel), Serum (05/17/2024 6:13 PM EDT) Beta Glucan (Fungitell) 43 <80 pg/mL 05/19/2024 4:58 PM EDT [facility] (GAMALIEL) Comment: Interpretation: The Fungitell assay does not detect certain fungal species such as the genus Cryptococcus (Rica et al. 1991) which produces very low levels of (1-3)-Wtkd-B-Aweqxx. The assay also does not detect the Zygomycetes such as Absidia, Mucor and Rhizopus (Stacey et al. 1994) which are not known to produce (1-3)-Gqdh-H-Xkrszt. In addition, the yeast phase of Blastomyces dermatitidis produces little (1-3)-Tnwx-S-Kxzdhw and may not be detected by the [...] characteristics for these modifications were determined by [facility]. If sample result is greater than 500 pg/mL, physician may order a titer of the sample. Please contact [facility] if you would like to order a retest of this sample to obtain an actual value. Samples are held for 1 week after initial testing date. Testing Performed at: [facility] [address] [place] [address], [address] [place] [address] Senior Data Architect: Clayton Mata, PhD [place] ([facility]) CLIA # [id number] FLAG Interpretation: A = Abnormal, H = High, L = Low Blood Venous blood specimen / Unknown Venipuncture / Unknown 05/17/2024 6:13 PM EDT 05/17/2024 6:27 PM EDT Narrative KWABENA (GAMALIEL) - 05/19/2024 4:58 PM EDT [facility]Immediate us Lora Llanes APRN LAB BLOOD ORDERABLES Final Result KWABENA GALAVIZ) * AFB Blood Culture (05/17/2024 6:13 PM EDT) AFB Culture No Mycobacterial Growth at 6 Weeks 07/06/2024 5:16 PM EDT [facility] Blood Venous blood specimen / Unknown Venipuncture / Unknown 05/17/2024 6:13 PM EDT 05/17/2024 6:32 PM EDT us Lora Llanes COSTUMING SUPERVISOR LAB MICROBIOLOGY - GENERAL ORDERABLES Final Result [facility] [address] [place] [address] * [place] CRIT[facility] CARE, E/M 30-74 MINUTES [...] - 9.1 min 05/17/2024 3:56 PM EDT [facility] R, Heparinase 7.2 4.3 - 8.3 min 05/17/2024 3:56 PM EDT [facility] K 2.0 0.8 - 2.1 min 05/17/2024 3:56 PM EDT [facility] Angle 72.5 63.0 - 78.0 degrees 05/17/2024 3:56 PM EDT [facility] MA 72.2(H) 52.0 - 69.0 mm 05/17/2024 3:56 PM EDT [facility] MA, Rapid 74.4(H) 52.0 - 70.0 mm 05/17/2024 3:56 PM EDT [facility] MA, Fibrinogen 48.4(H) 15.0 - 32.0 mm 05/17/2024 3:56 PM EDT [facility] FLEV 883.2(H) 278.0 - 581.0 mg/dl 05/17/2024 3:56 PM EDT [facility] Blood Venous blood specimen / Unknown Venipuncture / Unknown 05/17/2024 3:08 PM EDT 05/17/2024 3:26 PM EDT us Matie Austin MD LAB BLOOD ORDERABLES Final Resu lt Performing Organization Address [facility]/[place] [address] * Influenza A,B & Respiratory Syncytial Virus by PCR (05/17/2024 3:08 PM EDT) Influenza A Virus PCR Result Not Detected Not Detected 05/18/2024 7:52 AM EDT [facility] Influenza B Virus PCR Result Not Detected Not Detected 05/18/2024 7:52 AM EDT [facility] Respiratory Syncytial Virus (RSV) PCR Result Not Detected Not Detected 05/18/2024 7:52 AM EDT [facility] Swab Nasopharyngeal structure / Unknown Non-blood Collection / Unknown 05/17/2024 3:08 PM EDT 05/17/2024 3:25 PM EDT us Dulce Alamo APRN LAB MICROBIOLOGY - GENERAL O RDERABLES Final Result Performing Organization Address [facility]/[place] [address] * (ABNORMAL) APTT (05/17/2024 3:08 PM EDT) Only the most recent of3 resultswithin the time period is included. aPTT 41(H) 25 - 35 sec LAB COAGULATION METHOD 05/17/2024 4:06 PM EDT [facility] Blood Venous blood specimen / Unknown Venipuncture / Unknown 05/17/2024 3:08 PM EDT 05/17/2024 3:37 PM EDT Maite Austin MD LAB BLOOD ORDERABLES Final Resu lt Performing Organization Address [facility] de Phone Number [facility] [address] [place] [address] * Anti Xa Level Unfractionated Heparin (05/17/2024 3:08 PM EDT) Only the most recent of13 resultswithin the time period is included. Anti Xa Level Unfractionated Heparin <0.11 <1.00 IU/mL LAB COAGULATION METHOD 05/17/2024 4:06 PM EDT [facility] Blood Venous blood specimen / Unknown Venipuncture / Unknown 05/17/2024 3:08 PM EDT 05/17/2024 3:37 PM EDT Narrative [facility] - 05/17/2024 4:06 PM EDT Therapeutic Range: UFH Full Dose and ACS/OH protocols*: 0.30 - 0.70 IU/mL UFH Low Dose protocol*: 0.25 - 0.50 IU/mL UFH prophylaxis: Not established Maite Austin MD LAB BLOOD ORDERABLES Final Resu lt Performing Organization Address [facility] de Phone Number [facility] [address] [place] [address] * (ABNORMAL) C-reactive protein (05/17/2024 10:23 AM EDT) CRP, Plasma 225.3(H) <=8.0 mg/L 05/17/2024 2:08 PM EDT [facility] Blood Venous blood specimen / Unknown Venipuncture / Unknown 05/17/2024 10:23 AM EDT 05/17/2024 10:28 AM EDT Narrative [facility] - 05/17/2024 2:08 PM EDT This CRP test is appropriate for assessment of infection, systemic inflammation and/or tissue injury. To assess cardiovascular disease risk order high sensitivity CRP (CRPH). us Trinity Yousif APRN LAB BLOOD ORDERABLES Final Res ult Performing Organization Address City/[facility]/ZIP Co de Phone Number [facility] [address] [place] [address] * Potassium (05/16/2024 12:05 PM EDT) Only the most recent of3 resultswithin the time period is included. Potassium, Plasma 4.1 3.6 - 4.9 mmol/L 05/16/2024 2:03 PM EDT [facility] Blood Venous blood specimen / Unknown Venipuncture / Unknown 05/16/2024 12:05 PM EDT 05/16/2024 12:48 PM EDT us Uriah PHILLIP LAB BLOOD ORDERABLES Final Result Performing Organization Address [facility]/[place] Co de Phone Number [facility] [address] [place] [address] * (ABNORMAL) Iron & Total Iron Binding Capacity, Plasma (Includes Transferrin) (05/14/2024 12:10 PM EDT) Iron, Plasma 25(L) 30 - 160 ug/dL 05/14/2024 1:01 PM EDT [facility] Transferrin, Plasma 125(L) 200 - 360 mg/dL 05/14/2024 1:01 PM EDT [facility] Total Iron Binding Capacity, Plasma 156(L) 240 - 450 ug/mL 05/14/2024 1:01 PM EDT [facility] Transferrin Saturation 16 14 - 50 % 05/14/2024 1:01 PM EDT [facility] Blood Venous blood specimen / Unknown Venipuncture / Unknown 05/14/2024 12:10 PM EDT 05/14/2024 12:22 PM EDT us Maite Austin MD LAB BLOOD ORDERABLES Final Resu lt Performing Organization Address City/[facility]/ZIP Co de Phone Number [facility] [address] [place] [address] * (ABNORMAL) Ferritin (05/14/2024 12:10 PM EDT) Pathologist [facility] Ferritin, Serum 1,271(H) 13 - 150 ng/mL 05/14/2024 1:05 PM EDT [facility] Blood Venous blood specimen / Unknown Venipuncture / Unknown 05/14/2024 12:10 PM EDT 05/14/2024 12:22 PM EDT us Maite Austin MD LAB BLOOD ORDERABLES Final Resu lt Performing Organization Address [facility]/[place] Co de Phone Number [facility] [address] [place] [address] * SARS CoV-2/COVID-19 by PCR (05/13/2024 9:34 PM EDT) [facility] SARS CoV-2/COVID-1 9 RNA PCR Result Not Detected Not Detected 05/15/2024 7:05 AM EDT [facility] Swab Nasopharyngeal structure / Unknown Non-blood Collection / Unknown 05/13/2024 9:34 PM EDT 05/13/2024 10:34 PM EDT Narrative [facility] - 05/15/2024 7:05 AM EDT [...] testing. This test was performed using the [employer] SARS CoV-2 assay, a PCR-based method. Negative results should be considered presumptive and do not preclude current or future infection obtained through community transmission or other exposures. Negative results must be considered in the context of an individual's recent exposures, history, presence of clinical signs and symptoms consistent with COVID-19. us Maite Austin MD LAB MICROBIOLOGY - GENERAL ORDE [facility] Final Result Performing Organization Address [facility]/State/ZIP Co de Phone Number [facility] [address] [place] [address] * Nasopharyngeal Respiratory Panel (05/13/2024 9:34 PM EDT) Nasopharyngeal Respiratory PCR Interpretation Not Detected for all analytes Not Detected for all analytes 05/14/2024 2:56 AM EDT [facility] Swab Nasopharyngeal structure / Unknown Non-blood Collection / Unknown 05/13/2024 9:34 PM EDT 05/13/2024 10:34 PM EDT Narrative [facility] - 05/14/2024 2:56 AM EDT [...] Respiratory PCR Panel is performed using the [employer] instrument. This test is FDA approved for use with Nasopharyngeal swabs only. This test is used for clinical purposes. It should not be regarded as investigational or for research. [facility] Clinical Microbiology Laboratory is certified under the Clinical Laboratory Improvement Amendments of 1988 (CLIA-88) as qualified to perform high complexity clinical laboratory testing. Maite Austin MD LAB MICROBIOLOGY - GENERAL [place] Final Result [facility] [address] [place] [address] * (ABNORMAL) POCT venous blood gas gem (05/09/2024 3:15 PM EDT) pH, Venous 7.42 7.32 - 7.43 05/09/2024 3:17 PM [address] [facility] pCO2, Venous 44 37 - 52 mm Hg 05/09/2024 3:[address] [facility] pO2, Venous <30 25 - 40 mm Hg 05/09/2024 3:17 [address] [facility] SO2, Venous 24(L) 65 - 80 % 05/09/2024 3:17 PM ED[address] [facility] Base Excess/Deficit, Venous 3.6(H) -2 - 3 mmol/L 05/09/2024 3:[address] [facility] HCO3, Venous 28.5(H) 22 - 26 mmol/L 05/09/2024 3:17 [address] [facility] Hemoglobin, Venous 9.7(L) 11.2 - 15.7 g/dL 05/09/2024 3:[address] [facility] Hematocrit, Venous 29.0(L) 34.0 - 45.0 % 05/09/2024 3:[address] [facility] Sodium, Venous 143 136 - 145 mmol/L 05/09/2024 3:17 [address] [facility] Potassium, Venous 4.1 3.6 - 4.9 mmol/L 05/09/2024 3:[address] [facility] POCT Chloride, Venous 107 97 - 107 mmol/L 05/09/2024 3:17 [address] [facility] Glucose, Venous 89 74 - 99 mg/dL 05/09/2024 3:17 [address] [facility] Ionized Calcium, Venous 4.4(L) 4.6 - 5.1 mg/dL 05/09/2024 3:[address] [facility] Lactate, Venous 3.3(H) 0.5 - 2.2 mmol/L 05/09/2024 3:[address] [facility] Body Temperature 37.0 Celsius 05/09/2024 3:[address] [facility] pH, Temp Corrected, Venous 7.42 7.32 - 7.43 05/09/2024 3:[address] [facility] pCO2, Temp Corrected, Venous 44 37 - 52 mm Hg 05/09/2024 3:17 PM ED[address] [facility] High Density Press Laborer ID Alka Corona 05/09/2024 3:17 [address] ED[address] [facility] Acknowledged, Notified By RN 05/09/2024 3:17 PM ED[address] [facility] Critical Notify Time 1515 05/09/2024 3:17 PM ED[address] [facility] Critical Readback Y 05/09/2024 3:17 [address] [facility] Blood, Venous Whole blood specimen / Unknown 05/09/2024 3:15 PM EDT 05/09/2024 3:17 PM EDT us Maite Austin MD LAB POINT OF CARE TE ST DOCKED DEVICE UNSOLICITED RESULTS Final Result Performing Organization Address City/[facility]/[place] Co de Phone Number [facility] [address] [place] [address] * BETA HYDROXYBUTYRIC ACID (05/09/2024 11:30 AM EDT) Beta-Hydroxybut yric Acid, Plasma 0.1 <=0.27 mmol/L 05/09/2024 6:19 PM EDT [facility] Blood Venous blood specimen / Unknown Venipuncture / Unknown 05/09/2024 11:30 AM EDT 05/09/2024 12:34 PM EDT Gregg Burdick MD LAB BLOOD ORDERABLES Final Resu lt Performing Organization Address City/[facility] Co de Phone Number [facility] [address] [place] [address] * [place] CRITICAL CARE, ADDL 30 MIN [...] - 35 U/L 05/09/2024 1:31 PM EDT [facility] Blood Venous blood specimen / Unknown Venipuncture / Unknown 05/09/2024 12:52 AM EDT 05/09/2024 12:57 AM EDT Maite Austin MD LAB BLOOD ORDERABLES Final Resu lt [facility] [address] [place] [address] * (ABNORMAL) Alanine Aminotransferase, Plasma (05/09/2024 12:52 AM EDT) ALT, Plasma 84(H) 10 - 35 U/L 05/09/2024 1:31 PM EDT [facility] Blood Venous blood specimen / Unknown Venipuncture / Unknown 05/09/2024 12:52 AM EDT 05/09/2024 12:57 AM EDT us Maite Austin MD LAB BLOOD ORDERABLES Final Resu lt [facility] [address] [place] [address] * [place] CRITICAL CARE, ADDL 30 MIN (05/08/2024 1:26 PM EDT) Narrative Gregg Burdick MD - 05/08/2024 1:26 PM EDT Gregg Brudick MD 05/09/2024 8:48 AM Critical Care Performed [...] LAB HEMATOLOGY METHOD 05/07/2024 8:27 AM EDT [facility] pCO2, Mixed Venous 50 37 - 52 mmHg LAB HEMATOLOGY METHOD 05/07/2024 8:27 AM EDT [facility] pO2, Mixed Venous 52(H) 25 - 40 mmHg LAB HEMATOLOGY METHOD 05/07/2024 8:27 AM EDT [facility] SO2, Measured, Mixed Venous 86(H) 65 - 80 % LAB HEMATOLOGY METHOD 05/07/2024 8:27 AM EDT [facility] Bicarbonate, Calculated, Mixed Venous 23 22 - 26 mmol/L LAB HEMATOLOGY METHOD 05/07/2024 8:27 AM EDT [facility] Base Excess, Mixed Venous -3.8(L) -2.0 - 3.0 mmol/L LAB HEMATOLOGY METHOD 05/07/2024 8:27 AM EDT [facility] Hematocrit, Whole Blood 29.8(L) 34.0 - 45.0 % LAB HEMATOLOGY METHOD 05/07/2024 8:27 AM EDT [facility] Sodium, Whole Blood 151(H) 136 - 145 mmol/L LAB HEMATOLOGY METHOD 05/07/2024 8:27 AM EDT [facility] Potassium, Whole Blood 4.5 3.6 - 4.9 mmol/L LAB HEMATOLOGY METHOD 05/07/2024 8:27 AM EDT [facility] Chloride, Whole Blood 119(H) 97 - 107 mmol/L LAB HEMATOLOGY METHOD 05/07/2024 8:27 AM EDT [facility] Ionized Calcium, Whole Blood 4.9 4.6 - 5.1 mg/dL LAB HEMATOLOGY METHOD 05/07/2024 8:27 AM EDT [facility] Glucose, Whole Blood 112(H) 74 - 99 mg/dL LAB HEMATOLOGY METHOD 05/07/2024 8:27 AM EDT [facility] Oxyhemoglobin, Mixed Venous, Whole Blood 83.4(H) 40.0 - 70.0 % LAB HEMATOLOGY METHOD 05/07/2024 8:27 AM EDT [facility] Hemoglobin Reduced, Mixed Venous, Whole Blood 14.2 % LAB HEMATOLOGY METHOD 05/07/2024 8:27 AM EDT [facility] Total Hemoglobin, Mixed Venous, Whole Blood 9.7(L) 11.2 - 15.7 g/dL LAB HEMATOLOGY METHOD 05/07/2024 8:27 AM EDT [facility] Blood Mixed venous blood specimen / Unknown Venipuncture / Unknown 05/07/2024 8:08 AM EDT 05/07/2024 8:23 AM EDT us Maite Austin MD LAB BLOOD ORDERABLES Final Resu lt [facility] [address] [place] [address] * (ABNORMAL) Hemoglobin (05/07/2024 8:08 AM EDT) HGB 9.9(L) 11.2 - 15.7 g/dL LAB HEMATOLOGY METHOD 05/07/2024 8:46 AM EDT [facility] Blood Venous blood specimen / Unknown Venipuncture / Unknown 05/07/2024 8:08 AM EDT 05/07/2024 8:36 AM EDT us Maite Austin MD LAB BLOOD ORDERABLES Final Resu lt [facility] [address] [place] [address] * (ABNORMAL) Hematocrit (05/07/2024 8:08 AM EDT) HCT 29.0(L) 34.0 - 45.0 % LAB HEMATOLOGY METHOD 05/07/2024 8:46 AM EDT [facility] Blood Venous blood specimen / Unknown Venipuncture / Unknown 05/07/2024 8:08 AM EDT 05/07/2024 8:36 AM EDT us Maite Austin MD LAB BLOOD ORDERABLES Final Resu lt [facility] [address] [place] [address] * (ABNORMAL) POCT arterial blood gas gem (05/07/2024 6:35 AM EDT) Only the most recent of18 resultswithin the time period is included. pH, Arterial 7.32(L) 7.35 - 7.45 05/07/2024 6:36 AM EDT [facility] pCO2, Arterial 44 35 - 48 mm Hg 05/07/2024 6:36 AM EDT [facility] pO2, Arterial 80(L) 83 - 108 mm Hg 05/07/2024 6:36 AM EDT [facility] SO2, Arterial 98 94 - 98 % 05/07/2024 6:36 AM EDT [facility] FIO2 40.0 % 05/07/2024 6:36 AM EDT [facility] Base Excess, Arterial -3.3(L) -2 - 3 mmol/L 05/07/2024 6:36 AM EDT [facility] HCO3, Arterial 22.7 22 - 26 mmol/L 05/07/2024 6:36 AM EDT [facility] Total Hemoglobin, Arterial, Whole Blood 9.7(L) 11.2 - 15.7 g/dL 05/07/2024 6:36 AM EDT [facility] Hematocrit, Arterial 29.0(L) 34.0 - 45.0 % 05/07/2024 6:36 AM EDT [facility] Sodium, Arterial 151(H) 136 - 145 mmol/L 05/07/2024 6:36 AM EDT [facility] Potassium, Arterial 4.9 3.6 - 4.9 mmol/L 05/07/2024 6:36 AM EDT [facility] Chloride, Whole Blood 118(H) 97 - 107 mmol/L 05/07/2024 6:36 AM EDT [facility] Glucose, Arterial 114(H) 74 - 99 mg/dL 05/07/2024 6:36 AM EDT [facility] Ionized Calcium, Arterial 5.5(H) 4.6 - 5.1 mg/dL 05/07/2024 6:36 AM EDT [facility] Lactate, Arterial 3.9(H) 0.5 - 1.6 mmol/L 05/07/2024 6:36 AM EDT [facility] Body Temperature 38.0 Celsius 05/07/2024 6:36 AM EDT [facility] pH, Temp Corrected, Arterial 7.31(L) 7.35 - 7.45 05/07/2024 6:36 AM EDT [facility] pCO2, Temp Corrected, Arterial 46 35 - 48 mm Hg 05/07/2024 6:36 AM EDT [facility] pO2, Temp Corrected, Arterial 85 83 - 108 mm Hg 05/07/2024 6:36 AM EDT [facility] High Density Press Laborer ID [employer] 05/07/2024 6:36 AM EDT [facility] Blood, Arterial Whole blood specimen / Unknown 05/07/2024 6:35 AM EDT 05/07/2024 6:36 AM EDT us Maite Austin MD LAB POINT OF CARE TE ST DOCKED DEVICE UNSOLICITED RESULTS Final Result [facility] [address] [place] [address] * [place] CRIT[facility], E/M 30-74 MINUTES (05/06/2024 10:03 PM EDT) Narrative Edson Lewis MD - 05/06/2024 10:03 PM EDT Edson Lewis MD 05/21/2024 8:06 AM Critical Care Performed by: Edson Lewis MD Authorized by: Edson Lewsi MD Critical care provider statement: Critical care [...] Detected Not Detected 05/07/2024 11:20 AM EDT [facility] Swab (Axilla and Groin) Non-blood Collection / Unknown 05/06/2024 8:44 PM EDT 05/06/2024 9:17 PM EDT Narrative [facility] - 05/07/2024 11:20 AM EDT This PCR assay was developed and its performance characteristics determined by [facility] as appropriate for clinical purposes. This assay has not been cleared or approved by the FDA, but is performed in a CLIA regulated laboratory that is qualified to perform high-complexity testing. Maite Austin MD LAB MICROBIOLOGY - GENERAL [place] [place] Final Result [facility] [address] [place] [address] * PB ANESTHESIA NON-TIMED PROCEDURE PLACEHOLDER (05/06/2024 [...] the time period is included. Product Code [id number] CH BLOO D BANK Dispense Status Transfused BLOOD BANK Blood Expiration Date [id number] BLOOD BANK Unit Number [id number] CH B LOOD BANK Product Blood Type 6200 BLOOD BANK Blood Type A+ BLOOD BANK Blood Venous blood specimen / Unknown Alfie Khoury MD BLOOD BANK PRODUCT ORDERAB LES Final Result BLOOD BANK [address] [place] [address], [place] * [place] AN CENTRAL LINE SINGLE LUMEN, PB ANESTHESIA NON-TIMED PROCEDURE PLACEHOLDER, ANESTHESIA ULTRASOUND GUIDED, WI INSERT/PLACE FLOW DIRECT CATH (05/06/2024 10:51 AM EDT) Narrative Alife Khoury MD - 05/06/2024 10:51 AM EDT [...] * (ABNORMAL) QPLUS (05/06/2024 10:36 AM EDT) [facility] Clot Time [phone] - 166 Seconds [...] Seconds 05/06/2024 10:49 AM EDT [facility] High Density Press Laborer ID Carloz shirley Alfie 05/06/2024 10:49 AM EDT [facility] Device ID [id number] 05/06/2024 10:49 AM EDT [facility] Whole Blood 05/06/2024 10:3 6 AM EDT 05/06/2024 10:49 AM EDT us Erum Bahena MD LAB POINT OF CARE TEST DOCKED DEVICE UNSOLICITED RESULTS Final Result Performing Organization Address City/State/RUST Co de Phone Number [facility] [address] [place] [address] * [place] AN ELECTIVE ENDOTRACHEAL AIRWAY, PB ANESTHESIA PLACEHOLDER [...] - 418 PRU 05/06/2024 12:32 AM EDT [facility] Blood Venous blood specimen / Unknown Venipuncture / Unknown 05/06/2024 12:07 AM EDT 05/06/2024 12:23 AM EDT Narrative [facility] - 05/06/2024 12:32 AM EDT [...] to the clinician. Testing performed in the [facility]. us Trinity Yousif COSTUMING SUPERVISOR LAB BLOOD ORDERABLES Final Res ult [facility] [address] [place] [address] * POC Imaging (05/06/2024) Anatomical Region Laterality Modality Pelvis Other 05/06/2024 us External Provider IMG POINT OF CARE ULTRASOUND F inal Result * Pulmonary function testing (05/03/2024 8:37 AM EDT) VIT8OEG 2.23 L 05/03/2024 8:31 AM EDT VYAIRE [...] 1.84 05/03/2024 8:31 AM EDT VYAIRE PFT UXQ3XFNVORGLG -2.47 05/03/2024 8:31 AM EDT VYAIRE PFT FEV1_Pre%Pred 65 % % 05/03/2024 8:31 AM EDT VYAIRE PFT FEV1 PREDAUTH US_Quanjer GLI (2011) 05/03/2024 8:31 AM EDT VYAIRE PFT FEV1 Z-SCORE -2.47 05/03/2024 8:31 AM EDT VYAIRE PFT FEV1/FVC PRE 69.79 % 05/03/2024 8:31 AM EDT VYAIRE PFT POQ3VJCJYIO 80 05/03/2024 8:31 AM EDT VYAIRE PFT RGE3YVYXQW 69 05/03/2024 8:31 AM EDT VYAIRE PFT UGM8CDMKKZMMLBTD -1.53 05/04/19 8:31 AM EDT VYAIRE PFT DJB7MUDWEX%PRED 87 % % 8:31 AM EDT VYAIRE PFT LXJ4BDPDRCRZ US_Quanjer GLI (2011) 05/03/2024 8:31 AM EDT VYAIRE PFT SFO4DYDUFLPVQ -2 05/03/2024 8:31 AM EDT VYAIRE PFT VAS66-56% PRE 0.96 L/s 05/03/2024 8:31 AM EDT VYAIRE PFT AEL86-83%_Pred 2.36 05/03/2024 8:31 AM EDT VYAIRE PFT FZT2683%LLN 1.27 05/03/2024 8:31 AM EDT VYAIRE PFT QNH5310%PREZSCORE -2.25 025 8:31 AM EDT VYAIRE PFT UJG0298%PRE%PRED 41 % % 05/04/19 8:31 AM EDT VYAIRE PFT DHP8030%[facility] US_Quanjer GLI (2011) 05/03/2024 8:31 AM EDT VYAIRE PFT PEF PRE 4.76 L/s 05/03/2024 8:31 AM EDT VYAIRE PFT PEF PRED 6.14 05/03/2024 8:31 AM EDT VYAIRE PFT PEF LLN 4.58 05/03/2024 8:31 AM EDT VYAIRE PFT PEFPREZSCORE -1.46 05/03/2024 8:31 AM EDT VYAIRE PFT PEFPRE%PRED 78 % % 05/03/2024 8:31 AM EDT VYAIRE PFT PEF [facility] NHANES III (1998) 05/03/2024 8:31 AM EDT VYAIRE PFT PXPUASJLOJFOWSIM7XZW 19.34 ml/(min* mmHg) 05/03/2024 8:31 AM EDT VYAIRE PFT DLCOSINGLEBREATH PRED 18.72 05/03/2024 8:31 AM EDT VYAIRE PFT DLCOSINGLEBREATH LLN 14.50 04/15 8:31 AM EDT VYAIRE PFT DLCOSINGLEBREATH Z-SCORE 0.22 05/03/2024 8:31 AM EDT VYAIRE PFT DLCOSINGLEBREATH % PRED 103.3 % 05/03/2024 8:31 AM EDT VYAIRE PFT DLCOSINGLEBREATH [facility] Elvis ASENCIOO GLI (2019) 05/03/2024 8:31 AM EDT VYAIRE PFT DLCOSINGLEBREATH Z-SCORE 0.22 05/03/2024 8:31 AM EDT VYAIRE PFT CEKLHOCUAVVXEJIVS9QQ E 20.34 ml/(min* mmHg) 05/03/2024 8:31 AM EDT VYAIRE PFT DLCOCSINGLEBREATH PRED 18.72 05/03/2024 8:31 AM EDT VYAIRE PFT DLCOCSINGLEBREATH LLN 14.50 05/03/2024 8:31 AM EDT VYAIRE PFT DLCOCSINGLEBREATH Z-SCORE 0.56 05/03/2024 8:31 AM EDT VYAIRE PFT DLCOCSINGLEBREATH % PRED 108.7 % 05/03/2024 8:31 AM EDT VYAIRE PFT DLCOCSINGLEBREATH PREDAUTH Stanojevic TLCO GLI (2019) 05/03/2024 8:31 AM EDT VYAIRE PFT AVLMQA7PVQ 4.32 ml/(min* mmHg*L) 05/03/2024 8:31 AM EDT VYAIRE PFT DLCOVAPRED 4.40 05/03/2024 8:31 AM EDT VYAIRE PFT DLCOVALLN 3.42 05/03/2024 8:31 AM EDT VYAIRE PFT DLCOVAZSCORE -0.13 05/03/2024 8:31 AM EDT VYAIRE PFT DLCOVA%PRED 98.2 % 05/03/2024 8:31 AM EDT VYAIRE PFT DLCOVAPREDAUTH Stanojevic TLCO GLI (2019) 05/03/2024 8:31 AM EDT VYAIRE PFT DLCOVAZSCORE -0.13 05/03/2024 8:31 AM EDT VYAIRE PFT YTOKNZDTE1SBL 4.55 ml/(min* mmHg*L) 05/03/2024 8:31 AM EDT VYAIRE PFT DLCOC SB/VA PRED 4.40 05/04/19 8:31 AM EDT VYAIRE PFT DLCOC SB/VA LLN 3.42 8:31 AM EDT VYAIRE PFT DLCOC SB/VA Z-SCORE 0.23 05/03 8:31 AM EDT VYAIRE PFT DLCOC SB/VA % PRED 103.3 % 2024 8:31 AM EDT VYAIRE PFT DLCOC SB/VA [facility] Elvis TLCO GLI (2019) 05/03/2024 8:31 AM EDT VYAIRE PFT DLCOC SB/VA Z-SCORE 0.23 05/03 8:31 AM EDT VYAIRE PFT MPHCQAUSSWEVLF8ICC 4.47 L 2024 8:31 AM EDT VYAIRE PFT VASINGLEBREATH PRED 4.29 05/03 8:31 AM EDT VYAIRE PFT VASINGLEBREATH LLN 3.49 2024 8:31 AM EDT VYAIRE PFT VASINGLEBREATH Z-SCORE 0.37 05/03/2024 8:31 AM EDT VYAIRE PFT VASINGLEBREATH % PRED 104.4 % 05/03/2024 8:31 AM EDT VYAIRE PFT VASINGLEBREATH [facility] Elvis TLCO GLI (2019) 05/03/2024 8:31 AM EDT VYAIRE PFT VASINGLEBREATH Z-SCORE 0.37 05/03/2024 8:31 AM EDT VYAIRE PFT XOKOQBOWUQJHDGZ2SIR 2.44 L 05/03 8:31 AM EDT VYAIRE PFT IVCSINGLEBREATH PRED 2.99 03/ 8:31 AM EDT VYAIRE PFT IVCSINGLEBREATH LLN 2.31 05/03 8:31 AM EDT VYAIRE PFT IVCSINGLEBREATH Z-SCORE -1.32 05/03/2024 8:31 AM EDT VYAIRE PFT IVCSINGLEBREATH % PRED 81.7 % 05/03/2024 8:31 AM EDT VYAIRE PFT IVCSINGLEBREATH [facility] _Quanjer GLI (2011) 05/03/2024 8:31 AM EDT VYAIRE PFT HB PRE 11.90 g(Hb)/dL 05/03/2024 8:31 AM EDT VYAIRE PFT QPN7MST 4.18 L 05/03/2024 8:31 AM EDT VYAIRE [...] (2019)__ 05/03/2024 8:31 AM EDT VYAIRE PFT YAVNGHWB1QYR 2.31 L 05/03/2024 8:31 AM EDT VYAIRE PFT FRCPLETH PRED 2.37 05/03/2024 8:31 AM EDT VYAIRE PFT FRCPLETH LLN 1.68 05/03/2024 8:31 AM EDT VYAIRE PFT FRCPLETH ULN 3.24 05/03/2024 8:31 AM EDT VYAIRE PFT FRCPLETH Z-SCORE -0.13 05/04/19 8:31 AM EDT VYAIRE PFT FRCPLETH % PRED 97.5 % 8:31 AM EDT VYAIRE PFT FRCPLETH [facility] (2019)__ 05/03/2024 8:31 AM EDT VYAIRE PFT NEU6AIK 0.42 L 05/03/2024 8:31 AM EDT VYAIRE [...] (2019)__ 05/03/2024 8:31 AM EDT VYAIRE PFT RV%ULZ4LKU 45.22 % 05/03/2024 8:31 AM EDT VYAIRE PFT RV%TLCPRED 31 05/03/2024 8:31 AM EDT VYAIRE PFT RV%TLCLLN 20 05/03/2024 8:31 AM EDT VYAIRE PFT RV%TLCULN 42 05/03/2024 8:31 AM EDT VYAIRE PFT RV%TLCZSCORE 2.12 05/03/2024 8:31 AM EDT VYAIRE PFT RV%TLC%PRED 147.7 % 05/03/2024 8:31 AM EDT VYAIRE PFT RV%TLCPREDAUTH [facility] Lung volumes GLI (2019)__ 05/03/2024 8:31 AM EDT VYAIRE PFT GYG5IHI 2.40 L 05/03/2024 8:31 AM EDT VYAIRE PFT Anatomical Region Laterality Modality PFT 05/03/2024 8:06 AM EDT Narrative 05/04/2024 4:54 PM EDT Pulmonary Function Testing Report Rere Reese 53 y.o. underwent pulmonary function testing today at the [facility]. The patient underwent spirometry, lung volumes by [...] no prior studies for comparison. Marylu Carvajal COSTUMING SUPERVISOR, DNP PFT ORDERABLES Namrata otto Result * [...] is no recent study available for direct qrwa-vm-msrd comparison. Left Ventricle Based on the linear [...] is no recent study available for direct xqyk-xr-fhgk comparison. Marylu Carvajal APRN, DNP CV ECHO PROCEDURES F inal Result * (ABNORMAL) Troponin T, High Sensitivity, 2 Hour, Plasma (05/02/2024 2:23 AM EDT) Troponin T, High Sensitivity, 2 Hour 31(H) <14 ng/L 05/02/2024 2:53 AM EDT [facility] Troponin Delta 3 <10 ng/L 05/02/2024 2:53 AM EDT [facility] Troponin Delta Interpretation Not Significant 05/02/2024 2:53 AM EDT [facility] Comment:Not Significant. No acute change in troponin observed between the baseline and 2 hour samples. Blood Venous blood specimen / Unknown Venipuncture / Unknown 05/02/2024 2:23 AM EDT 05/02/2024 2:26 AM EDT Marylu Carvajal APRN, DNP LAB BLOOD ORDERABLES Final Result [facility] [address] [place] [address] * CT Chest wo IV Contrast (05/02/2024 [...] Gold Top (05/01/2024 11:58 PM EDT) Pathologist [facility] Extra Hold for add-ons 05/02/2024 3:02 AM EDT [facility] Comment:Auto resulted. Blood Venous blood specimen / Unknown 05/01/2024 11:58 PM EDT 05/02/2024 12:08 AM EDT Edson Mcclure DO LAB BLOOD ORDERABLES Final R esult Performing Organization Address City/[facility]/ZIP Co de Phone Number [facility] [address] [place] [address] * (ABNORMAL) Troponin T, High Sensitivity, 0 Hour Plasma, Reflex to 2 Hour (05/01/2024 11:58 PM EDT) Pathologist [facility] Troponin T, High Sensitivity, 0 Hour 34(H) <14 ng/L 05/02/2024 12:40 AM EDT [facility] Blood Venous blood specimen / Unknown Venipuncture / Unknown 05/01/2024 11:58 PM EDT 05/02/2024 12:05 AM EDT Marylu Carvajal APRN, DNP LAB BLOOD ORDERABLES Final Result [facility] [address] [place] [address] * Ionized calcium, serum (05/01/2024 11:58 PM EDT) Pathologist [facility] Ionized Calcium, Serum 4.6 4.6 - 5.3 mg/dL LAB HEMATOLOGY METHOD 05/02/2024 1:03 AM EDT [facility] Blood Venous blood specimen / Unknown Venipuncture / Unknown 05/01/2024 11:58 PM EDT 05/02/2024 12:07 AM EDT Marylu Carvajal APRN, DNP LAB BLOOD ORDERABLES Final Result [facility] [address] [place] [address] * Fibrinogen, Quantitative (Clottable) (05/01/2024 11:58 PM EDT) Fibrinogen, Quantitative (Clottable) 291 208 - 459 mg/dL LAB COAGULATION METHOD 05/02/2024 1:05 AM EDT [facility] Blood Venous blood specimen / Unknown Venipuncture / Unknown 05/01/2024 11:58 PM EDT 05/02/2024 12:05 AM EDT Marylu Carvajal APRN, DNP LAB BLOOD ORDERABLES Final Result Performing Organization Address City/[facility]/RUST Co de Phone Number [facility] [address] [place] [address] * Hemoglobin A1c (05/01/2024 11:58 PM EDT) Hemoglobin A1c 5.3 <5.7 % 05/02/2024 6:29 AM EDT [facility] Blood Venous blood specimen / Unknown 05/01/2024 11:58 PM EDT 05/02/2024 12:08 AM EDT Narrative [facility] - 05/02/2024 6:29 AM EDT HA1C Interpretive Data: Diagnosis of Diabetes: Diabetic > or = 6.5% Pre-diabetic 5.7 to 6.4% Non-diabetic < or = 5.6% Glycemic Targets for Type I and Type II Diabetics: Non- Adults <7.0% Adults <6.0% Children and Adolescents <7.5% Source: [place] [employer]. Standards of medical care in diabetes,2017. Diabetes Care.2017:40 (suppl 1):S1-S135. HbA1c assay performed by an ion-exchange chromatography method that is certified traceable to the DCCT. Anne Marie PHILLIP LAB BLOOD ORDERABLES Final Result [facility] [address] [place] [address] * (ABNORMAL) Lipid panel (05/01/2024 11:58 PM EDT) Cholesterol, Plasma 247(H) <200 mg/dL 05/02/2024 6:36 AM EDT [facility] Comment: Cholesterol Reference Range (age >17 years): Desirable <200 mg/dL Borderline 200 to 239 mg/dL Undesirable >239 mg/dL HDL 36(L) >=50 mg/dL 05/02/2024 6:36 AM EDT [facility] Comment: HDL Cholesterol Reference Ranges (age >17 years): Female, acceptable > or = 50 mg/dL Male, acceptable > or = 40 mg/dL Triglycerides, Plasma 271(H) <150 mg/dL 05/02/2024 6:36 AM EDT [facility] Comment: Triglyceride Reference Range (age >17 years): Desirable: <150 mg/dL Borderline high: 150 to 199 mg/dL High: 200 to 499 mg/dL Very high: >499 mg/dL Increased risk of pancreatitis: >1000 mg/dL Cholesterol/HDL Ratio 7 05/02/2024 6:36 AM EDT [facility] LDL, Calculated 160(H) <100 mg/dL 6:36 AM EDT [facility] Comment: LDL Cholesterol Reference Range [...] 12 hours? Unknown 05/02/2024 6:36 AM EDT [facility] Blood Venous blood specimen / Unknown 05/01/2024 11:58 PM EDT 05/02/2024 12:08 AM EDT us Anne Marie PHILLIP LAB BLOOD ORDERABLES Final Result [facility] [address] [place] [address] * IR OUTSIDE IMAGES (05/01/2024 12:08 PM EDT) Only the most recent of2 resultswithin the time period is included. Anatomical Region Laterality Modality X-Ray Angiograph y 05/01/2024 12:0 8 PM EDT us Jd Bentley MD IMG IR PROCEDURES Final Re [...] 12:06 PM 05/06/2024 8:27 PM Care Teams Nuclear Officer Relationship Specialty Start Date End Date Champ Quiroz MD [address] [address] [place] [address] PCP - General Internal Medicine 06/29/24
--- OUTSIDE RECORDS SUMMARY | 2024-07-23 15:46 | XMS_ITS | Patient Health Record ---
Author Organization [facility] Address [address] [place] [address] Care Team Providers Care Clerical Investigator Name Role Phone MateusMichaelle Thompson Primary Care Provider [phone] Champ Quiroz Unavailable [phone] Migration, Provider Unavailable Unavailable Allergies Allergen (clinical [...] Problem Status W/U Status Risk Notes Problem 471571442 Psychophysiologi c insomnia (F51.04) Active confirmed Problem 082893759 Essential tremor (G25.0) Active confirmed Problem 4734490 Panlobular emphy sema (J43.1) Active confirmed Problem [id number] Sciatica, left s reagan (M54.32) Active confirmed Problem 600576913184349 Lumbago with sciatica, right side (M54.41) Active confirmed Problem 101605174 Lumbago with sciatica, left side (M54.42) Active confirmed Problem 329717877 Depression with anxiety (F41.8) Active confirmed Problem 32554875 Anxiety (F41.9) Active confirmed Problem 611020012 B12 deficiency (E53.8) Active confirmed Problem 196072508 COPD exacerbatio n (J44.1) Active confirmed Problem 698321876 Atherosclerosis of [place] coronary artery of [place] heart without angina pectoris (I25.10) Active confirmed Problem 83993628 Skin lesions (L98.9) Active confirmed Vital Signs Heart Rate 96 /min 07/18/2024 Temperature 97.8 degrees Fahrenheit 07/18/2024 Blood pressure diastolic 70 mm Hg 07/18/2024 Height 5 ft 1 in in 07/18/2024 Blood pressure systolic 104 mm Hg 07/18/2024 Weight 117.8 lbs 07/18/2024 BMI 22.26 kg/m2 07/18/2024 Encounters Encounter Location Date Provider Diagnosis [facility] [address] [place] [address] 05/19/2024 Provider Migration Depression with anxiety F41.8 and COPD exacerbation J44.1 [facility] [address] [address] 10/21/2023 Michaelle McNees Pain in joints of ri ght hand M25.541 and Pain in joints of left hand M25.542 [facility] [address] [address] 12/29/2023 Champ Richie Acute bronchitis, unspecified organism J20.9 ; Subacute cough R05.2 and Sciatica, left side M54.32 [facility] [address] [address] 04/20/2024 Michaelle McNees Depression with anxi ety F41.8 and COPD exacerbation J44.1 [facility] [address] [facility] [address] [place] [address] 07/02/2024 Champjenniffer Quiroz Tremor R25.1 ; Atherosclerosis of [place] coronary artery of [place] heart without angina pectoris I25.10 ; Anxiety F41.9 ; Hospital discharge follow-up Z09 ; Dysuria R30.0 and Colostomy present Z93.3 [facility] [address] [facility] [address] [place] [address] 07/18/2024 Champ Richie Pelvic pain in femal e R10.2 and Panlobular emphysema J43.1 [facility] [address] [facility] [address] [place] [address] 07/20/2024 Michaelle McNees Hypokalemia E87.6 [facility] [address] [facility] [address] [place] [address] 09/01/2023 Michaelle McNees [facility] [address] [facility] [address] [place] [address] 09/02/2023 Michaelle McNees [facility] [address] [facility] [address] [place] [address] 10/21/2023 Michaelle McNees [facility] [address] [facility] [address] [place], [place] [address] 11/28/2023 Michaelle McNees [facility] [address] [place] [address] 02/06/2024 Michaelle McNees [facility] [address] [place], [place] [address] 04/20/2024 Michaelle McNees [facility] [address] [facility] [address] [place] [address] 07/20/2024 Michaelle McNees Assessments Encounter Date Diagnosis (ICD Code) Assessment Notes Treatment Notes Treatment Clinical Notes Section Notes 12/29/2023 Acute bronchitis, unspecified organism (ICD-10 - J20.9) Discussed the etiology and expected course of bronchitis. Discussed the rationale for antibiotics and steroid use and the importance of completeing the prescription as prescribed. Discussed supportive care. Discussed the signs and symptoms of worsening infection/respira tory distress that may indicate need for reassement in clinic/ED. 12/29/2023 Subacute cough (ICD-10 - R05.2) 04/20/2024 Depression with anxiety (ICD-10 - F41.8) [...] antibiotics as listed below. Continue Combivent inhaler. 05/19/2024 Depression with anxiety (ICD-10 - F41.8) 05/19/2024 COPD exacerbation (ICD-10 - J44.1) 10/21/2023 Pain in joints of right hand [...] be helpful for her 07/02/2024 Atherosclerosis of [place] coronary artery of [place] heart without angina pectoris (ICD-10 - I25.10) Status post bypass. On appropriate medication 07/18/2024 Panlobular emphysema (ICD-10 - J43.1) Stable. Off cigarettes, continue inhalers. 07/18/2024 Pelvic pain in female (ICD-10 - R10.2) RN FACULTY evaluation. Possible ongoing problems from catheter but will have them take a look 07/20/2024 Hypokalemia (ICD-10 - E87.6) 12/29/2023 Sciatica, left side (ICD-10 - M54.32) Injection as noted. I think she would benefit from SI joint evaluation or even lumbar facet injections versus comprehensive pain care evaluation. This referral will be made 07/02/2024 Anxiety (ICD-10 - F41.9) 07/02/2024 Hospital discharge follow-up (ICD-10 - Z09) [...] Name Order Date MRI : Lumbosacral Spine 05/06/2006 MRI : Lumbosacral Spine 06/17/2006 CT Scan : Abdomen, with contrast 007 CT Scan : Abdomen, with contrast 007 N-cbc 10/13/2006 MRI : Coccyx 06/17/2006 Mammogram : Bilateral 12/08/2021 M-Diarrhea Panel, PCR 01/25/2022 M-Diarrhea Panel, PCR 12/31/2022 Physical Therapy Eval and Treat 10/29/19 Next Appt Details Provider Name:Champ Quiroz, 08/20/2024 03:15:00 PM, [address], [place], [address], Insurance Providers Payer Name Payer Address Payer Phone Subscriber Number Group Number Insured Name Patient Relationship to Insured Coverage Start Date Coverage End Date [employer] [address] [address] [place] [address] [id number] Rere Reese Self - patient is [...] Date(Month/Year) - heart attach 04/30/2024-06/28/24 [facility] 01/2022
--- OUTSIDE RECORDS SUMMARY | 2024-07-23 15:46 | XMS_ITS | Encounter Summary ---
Author Organization Healthcare Address [address] [place] [address] Care Team Providers Care Gatekeeper Name Role Phone Pcp, No Primary Care [...] time in the past 12 m [facility], were you homeless or living [...] Description 07/31/2024 9:00 AM EDT Office Visit [facility] General Surgery [address] [place] [address] Lidia Troncoso MD [address] [place] [address] documented as of this encounter Goals Goal [...] documented as of this encounter Care Teams Gatekeeper Relationship Specialty Start Date End Date Pcp, [place] [address] PCP - General Family Medicine 04/04/24 06/28/24 documented as of this encounter
--- OUTSIDE RECORDS SUMMARY | 2024-07-23 15:46 | XMS_ITS | Encounter Summary ---
Author Organization Healthcare Address [address] [place] [address] Care Team Providers Care Sales Contracts Analyst Name Role Phone Pcp, No Primary [...] Description 07/31/2024 9:00 AM EDT Office Visit [facility] General Surgery [address] [place] [address] Lidia Trocnoso MD [address] [place] [address] documented as of this encounter Goals Goal [...] as of this encounter Care Teams Sales Contracts Analyst Relationship Specialty Start Date End Date Pcp, [place] [address] PCP - General Family Medicine 04/04/24 06/28/24 documented as of this encounter
--- OUTSIDE RECORDS SUMMARY | 2024-07-23 15:46 | XMS_ITS | Encounter Summary ---
Author Organization Healthcare Address [address] [place] [address] Care Team Providers Care Nurse School Name Role Phone Pcp, No Primary Care [...] a group home (including now)? No 05/02/2024 Utilities Answer [...] Description 07/31/2024 9:00 AM EDT Office Visit [facility] General Surgery [address] [place] [address] Lidia Troncoso MD [address] [place] [address] documented as of this encounter Goals Goal [...] documented as of this encounter Care Teams Nurse School Relationship Specialty Start Date End Date Pcp, [place] [address] PCP - General Family Medicine 04/04/24 06/28/24 documented as of this encounter
--- OUTSIDE RECORDS SUMMARY | 2024-07-23 15:46 | XMS_ITS | Encounter Summary ---
Author Organization Healthcare Address [address] [place] [address] Care Team Providers Care Director Hedis Name Role Phone Pcp, No Primary Care [...] 07/31/2024 9:00 AM EDT Office Visit [facility] General Surgery [address] [place] [address] Lidia Troncoso MD [address] [place] [address] documented as of this encounter Goals Goal [...] documented as of this encounter Care Teams Director Hedis Relationship Specialty Start Date End Date Pcp, [place] [address] PCP - General Family Medicine 04/04/24 06/28/24 documented as of this encounter
--- OUTSIDE RECORDS SUMMARY | 2024-07-23 15:46 | XMS_ITS | Encounter Summary ---
Author Organization Healthcare Address [address] [place] [address] Care Team Providers Care Turnaround Planner Name Role Phone Pcp, No Primary Care [...] Suicidal Behavior (Lifetime) No 8:00 AM PITOT Jenifer Reyes RN documented as of this encounter Plan of Treatment Upcoming Encounters Date Type Department Care Team (Late st Contact Info) Description 07/31/2024 9:00 AM EDT Office Visit [facility] General Surgery [address] [place] [address] Lidia Troncoso MD [address] [place] [address] documented as of this encounter Goals Goal [...] documented as of this encounter Care Teams Turnaround Planner Relationship Specialty Start Date End Date Pcp, [place] [address] PCP - General Family Medicine 04/04/24 06/28/24 documented as of this encounter
--- OUTSIDE RECORDS SUMMARY | 2024-07-23 15:46 | XMS_ITS | Encounter Summary ---
Author Organization Healthcare Address [address] [place] [address] Care Team Providers Care Chief Digital Officer Name Role Phone Pcp, No Primary [...] Description 07/31/2024 9:00 AM EDT Office Visit [facility] General Surgery [address] [place] [address] Lidia Troncoso MD [address] [place] [address] documented as of this encounter Goals Goal [...] documented as of this encounter Care Teams Chief Digital Officer Relationship Specialty Start Date End Date Pcp, [place] [address] PCP - General Family Medicine 04/04/24 06/28/24 documented as of this encounter
--- OUTSIDE RECORDS SUMMARY | 2024-07-23 15:46 | XMS_ITS | Encounter Summary ---
Author Organization Healthcare Address [address] [address] Care Team Providers Care Aviation Electrician Name Role Phone Pcp, No Primary Care [...] Description 07/31/2024 9:00 AM EDT Office Visit [facility] General Surgery [address], [address] [place] [address] Lidia Troncoso MD [address] [place] [address] [phone] documented as of this encounter Goals Goal [...] documented as of this encounter Care Teams Aviation Electrician Relationship Specialty Start Date End Date Pcp, [place] [address] PCP - General Family Medicine 04/04/24 06/28/24 documented as of this encounter
--- OUTSIDE RECORDS SUMMARY | 2024-07-23 15:46 | XMS_ITS | Encounter Summary ---
Author Organization Healthcare Address [address] [place] [address] Care Team Providers Care Recep Name Role Phone Pcp, No Primary Care [...] 07/31/2024 9:00 AM EDT Office Visit [facility] General Surgery [address], [address] [place] [address] Lidia Troncoso MD [address] [place] [address] documented as of this encounter Goals Goal [...] documented as of this encounter Care Teams Recep Relationship Specialty Start Date End Date Pcp, [place] [address] PCP - General Family Medicine 04/04/24 06/28/24 documented as of this encounter
--- OUTSIDE RECORDS SUMMARY | 2024-07-23 15:46 | XMS_ITS | Encounter Summary ---
Author Organization Healthcare Address [address] [place] [address] Care Team Providers Care Optical Laboratory Manager Name Role Phone Pcp, No Primary [...] any time in the past 12 m [facility], were you homeless or living in [...] Visit [facility] General Surgery [address], [address] [place] [address] Lidia Troncoso MD [address] [place] [address] documented as of this encounter Goals Goal [...] documented as of this encounter Care Teams Optical Laboratory Manager Relationship Specialty Start Date End Date Pcp, [place] [address] PCP - General Family Medicine 04/04/24 06/28/24 documented as of this encounter
--- OUTSIDE RECORDS SUMMARY | 2024-07-23 15:46 | XMS_ITS | Encounter Summary ---
Author Organization Healthcare Address [address] [place] [address] Care Team Providers Care Archery Equipment Hay Sorter Name Role Phone Pcp, No Primary Care [...] Brunilda Dawson RN 2. Non-Specific Active Suici eriac Thoughts (Past 1 Month) No 06/19/2024 8:00 PM EDT Earnest Dawson RN 6. Suicidal Behavior (Lifetime) No 8:00 PM EDT Brunilda Dawson RN documented as of this encounter Plan of Treatment Upcoming Encounters Date Type Department Care Team (Late st Contact Info) Description 07/31/2024 9:00 AM EDT Office Visit [facility] General Surgery [address], 1[address] [place] [address] Lidia Troncoso MD [address] [place] [address] documented as of this encounter Goals Goal [...] documented as of this encounter Care Teams Archery Equipment Hay Sorter Relationship Specialty Start Date End Date Pcp, [place] [address] PCP - General Family Medicine 04/04/24 06/28/24 documented as of this encounter
--- OUTSIDE RECORDS SUMMARY | 2024-07-23 15:47 | XMS_ITS | Encounter Summary ---
Author Organization Healthcare Address [address] [place] [address] Care Team Providers Care Bakery Technician Name Role Phone Pcp, No Primary Care [...] any time in the past [address] [facility], were you homeless or living [...] Description 07/31/2024 9:00 AM EDT Office Visit [facility] General Surgery [address], [address] [place] [address] Lidia Troncoso MD [address] [place] [address] documented as of this encounter Goals Goal [...] documented as of this encounter Care Teams Bakery Technician Relationship Specialty Start Date End Date Pcp, [place] [address] PCP - General Family Medicine 04/04/24 06/28/24 documented as of this encounter
--- OUTSIDE RECORDS SUMMARY | 2024-07-23 15:47 | XMS_ITS | Data Portability ---
Author Organization [facility], [facility] [place] Address [address] [place] [address] Assessment No assessment recorded. Plan of Treatment [...] Organization Details Recorded Time Shoulder Surgery completed [facility] 12/10/2021 16:40:[address] [facility] 12/10/2021 16:40:17 Imaging Results None recorded. [...] Updated DateTime 2 162.56 cm 23.5 kg/m2 76059.4 4 g 96.9 [degF] 97 % 97 % 85 /min 112 mm[Hg] 60 mm[Hg] Corinne Tang [facility] [place] 13:30:57 Social History Question Answer Notes LastModified by Organizat ion Details LastModified Time Tobacco Smoking Status Current Every Day Smoker Corinne Tang [facility], [facility] [place] 12/10/2021 16:39:59 How Much Tobacco Do You [...] SNOMED-CT Code Diagnosis ICD10 Code Diagnosis Note [id number] Juany Mathews MD [facility] [address] [facility],[place] [address] 12/14/2021 13:22:57 12/14/2021 15:21:02 Essential tremor [id number] G25.0 tremor has been under relatively good control with combinatio n of primidone and Inderal, we will watch her hair loss closely, it may be related to her recent COVID infection but if it is related to Inderal in may need to consider gradually weaning this off. Periodic l eg movements of sleep [id number] G47.61 Periodic leg movements are under relatively [...] Doll Member ID Guarantor Name 09/03/2023 1 [facility] (MEDICAID REPLACEMENT - HMO) Rere Reese [id number] Rere Reese Notes Date Note Type Note [...] mg twice a day. Juany Mathews MD [address] [place] [address], [phone], [facility] 12/14/2021 15:11:09 OBGyn Episode No OBEpisode recorded.
--- OUTSIDE RECORDS SUMMARY | 2024-07-23 15:47 | XMS_ITS | Encounter Summary ---
Author Organization Healthcare Address [address] [place] [address] Care Team Providers Care Manager Cath Lab Name Role Phone Pcp, No Primary Care [...] Description 07/31/2024 9:00 AM EDT Office Visit [facility] General Surgery [address], [address] [place] [address] Lidia Troncoso MD [address] [place] [address] documented as of this encounter [...] as of this encounter Care Teams Manager Cath Lab Relationship Specialty Start Date End Date Pcp, [place] [address] PCP - General Family Medicine 04/04/24 06/28/24 documented as of this encounter
--- OUTSIDE RECORDS SUMMARY | 2024-07-23 15:47 | XMS_ITS | Encounter Summary ---
Author Organization Healthcare Address [address] [place] [address] Care Team Providers Care Senior Manufacturing Engineer Name Role Phone Pcp, No Primary Care Provider Champ Butler MD Primary Care Provider + [phone] Encounter Details Date Type Department Care Team (Late st Contact Info) Description 05/29/2024 Results Follow-Up Colorectal Surgery [address] [place] [address] Lidia Troncoso MD [address] [place] [address] Social History Tobacco Use Types Packs/Day Years [...] any time in the past 12 m [facility], were you homeless or living in a [...] Description 07/31/2024 9:00 AM EDT Office Visit [facility] General Surgery [address], [address] [place] [address] Lidia Troncoso MD [address] [place] [address] documented as of this encounter [...] as of this encounter Care Teams Senior Manufacturing Engineer Relationship Specialty Start Date End Date Pcp, [place] [address] PCP - General Family Medicine 04/04/24 06/28/24 Champ Quiroz MD [address] [place] [address] PCP - General Internal Medicine 06/29/24 documented as of this encounter
--- OUTSIDE RECORDS SUMMARY | 2024-07-23 15:47 | XMS_ITS | Encounter Summary ---
Author Organization Healthcare Address [address] [place] [address] Care Team Providers Care Pill Machine Operator Name Role Phone Pcp, No [...] Description 07/31/2024 9:00 AM EDT Office Visit [facility] General Surgery [address], [address] [place] [address] Lidia Troncoso MD [address] [place] [address] documented as of this encounter [...] documented as of this encounter Care Teams Pill Machine Operator Relationship Specialty Start Date End Date Pcp, [place] [address] PCP - General Family Medicine 04/04/24 06/28/24 documented as of this encounter
--- OUTSIDE RECORDS SUMMARY | 2024-07-23 15:47 | XMS_ITS | Encounter Summary ---
Author Organization Healthcare Address [address] [place] [address] Care Team Providers Care Haircutter Name Role Phone Pcp, No Primary Care [...] No 05/02/2024 Housing Stability Vital Sign Answer Aguialr e Recorded In the last 12 months, was t here a time when you were not able to pay the mortgage or rent on time? No 05/02/2024 Number of Times Moved in the Last Year Not on fi le 05/02/2024 At any time in the past 12 m [facility], were you homeless or living in [...] 9:00 AM EDT Office Visit [facility] General Surgery [address], [address] [place] [address] Lidia Troncoso MD [address] [place] [address] documented as of this encounter Goals Goal [...] documented as of this encounter Care Teams Haircutter Relationship Specialty Start Date End Date Pcp, [place] [address] PCP - General Family Medicine 04/04/24 06/28/24 documented as of this encounter
--- OUTSIDE RECORDS SUMMARY | 2024-07-23 15:47 | XMS_ITS | Encounter Summary ---
Author Organization Healthcare Address [address] [place] [address] Care Team Providers Care Supervisor Special Effects Name Role Phone Pcp, No Primary Care [...] any time in the past 12 m [facility], were you homeless or living in [...] 07/31/2024 9:00 AM EDT Office Visit [facility] General Surgery [address], [address] [place] [address] Lidia Troncoso MD [address] [place] [address] documented as of this encounter Goals Goal [...] documented as of this encounter Care Teams Supervisor Special Effects Relationship Specialty Start Date End Date Pcp, [place] [address] PCP - General Family Medicine 04/04/24 06/28/24 documented as of this encounter
--- OUTSIDE RECORDS SUMMARY | 2024-07-23 15:47 | XMS_ITS | Encounter Summary ---
Author Organization Healthcare Address [address] [place] [address] Care Team Providers Care Entry Operator Name Role Phone Pcp, No Primary [...] Description 07/31/2024 9:00 AM EDT Office Visit [facility] General Surgery [address], [address] [place] [address] Lidia Troncoso MD [address] [place] [address] documented as of this encounter Goals Goal [...] as of this encounter Care Teams Entry Operator Relationship Specialty Start Date End Date Pcp, [place] [address] PCP - General Family Medicine 04/04/24 06/28/24 documented as of this encounter
--- OUTSIDE RECORDS SUMMARY | 2024-07-23 15:47 | XMS_ITS | Encounter Summary ---
Author Organization Healthcare Address [address] [place] [address] Care Team Providers Care Shift Supervisor Rn Name Role Phone Pcp, No Primary Care [...] were you homeless or living in a fpc (including now)? No 05/02/2024 Utilities Answer Date [...] [facility] General Surgery [address], [address] [place] [address] Lidia Troncoso MD [address] [place] [address] documented as of this encounter Goals Goal [...] documented as of this encounter Care Teams Shift Supervisor Rn Relationship Specialty Start Date End Date Pcp, [place] [address] PCP - General Family Medicine 04/04/24 06/28/24 documented as of this encounter
--- OUTSIDE RECORDS SUMMARY | 2024-07-23 15:47 | XMS_ITS | Encounter Summary ---
Author Organization Healthcare Address [address] [place] [address] Care Team Providers Care Extension Service Advisor Name Role Phone Pcp, No Primary Care [...] in the past 12 m [facility], were you homeless or [...] Description 07/31/2024 9:00 AM EDT Office Visit [facility] General Surgery [address], [address] [place] [address] Lidia Troncoso MD [address] [place] [address] documented as of this encounter Goals Goal [...] documented as of this encounter Care Teams Extension Service Advisor Relationship Specialty Start Date End Date Pcp, [place] [address] PCP - General Family Medicine 04/04/24 06/28/24 documented as of this encounter
--- OUTSIDE RECORDS SUMMARY | 2024-07-23 15:47 | XMS_ITS | Encounter Summary ---
Author Organization Healthcare Address [address] [place] [address] Care Team Providers Care Cast Associate Name Role Phone Pcp, No Primary Care [...] Visit [facility] General Surgery [address], [address] [place] [address] Lidia Troncoso MD [address] [place] [address] documented as of this encounter Goals Goal [...] documented as of this encounter Care Teams Cast Associate Relationship Specialty Start Date End Date Pcp, [place] [address] PCP - General Family Medicine 04/04/24 06/28/24 documented as of this encounter
[2024-07-23 16:00] VITALS: BP 113/65; PULSE 75; RESP 18; TEMP 36.7; O2SAT 97
[2024-07-23] MEDS: VANCOMYCIN HCL 50MG/ML 150ML KIT 125 MG PO ×2 (16:09→20:43)
--- NOTE | 2024-07-23 16:43 | PC.NURSE ---
Md. pizarro to stop DELTA.
[2024-07-23 20:00] VITALS: BP 111/63; PULSE 79; PULSE 88; RESP 18; TEMP 36.6; O2SAT 97
[2024-07-23] MEDS: MELATONIN 5MG TABLET 5 MG PO (20:40)
[2024-07-23] MEDS: PANTOPRAZOLE 40MG TABLET 40 MG PO (20:40)
[2024-07-23] MEDS: ATORVASTATIN 40MG TABLET 40 MG PO (20:40)
[2024-07-23] MEDS: LORazepam 2MG/ML VIAL 1 MG IV (23:51)
[2024-07-24] VITALS: BP 101/61; PULSE 83; PULSE 90; RESP 18; TEMP 36.8; O2SAT 94
[2024-07-24] MEDS: MORPHINE 4MG/ML SYRINGE 4 MG IV ×3 (02:00→06:13)
[2024-07-24 04:00] VITALS: BP 110/64; PULSE 75; PULSE 84; RESP 20; TEMP 36.6; O2SAT 95; BMI 23.0
[2024-07-24 06:31] LABS: POC Glucose,Bedside 83 (70-110)
[2024-07-24 06:47] LABS: Basophils # 0.1 K/mm3 (0-0.2); Basophils % 0.7 % (0.1-2.0); Eosinophils # 0.7 Kmm3 (0.0-0.4); Eosinophils % 4.4 % (0.1-12.0); Hematocrit 34.8 % (37.0-47.0); Hemoglobin 10.6 g/dL (12.2-16.2); Immature Granulocytes # 0.06 10^3uL; Immature Granulocytes % 0.4 %; Lymphocytes # 3.7 K/mm3 (0.7-4.5); Lymphocytes % 24.9 % (10-50); Mean Corpuscular HGB Conc 30.5 g/dL (31.8-35.4); Mean Corpuscular Hemoglobin 28.3 pg (27.0-31.2); Mean Corpuscular Volume 92.8 fl (81-99); Mean Platelet Volume 9.8 fl (7.4-10.4); Monocytes # 1.3 K/mm3 (0.1-1.0); Monocytes % 8.8 % (1.7-9.3); Neutrophils % 60.8 % (37.0-80.0); Nucleated Red Blood Cells # 0 10^3/uL; Nucleated Red Blood Cells % 0 %; Platelet Count 422 K/mm3 (142-424); Red Blood Count 3.75 M/mm3 (4.20-5.40); Red Cell Distribution Width 15.4 % (11.5-17.5); Red Cell Distribution Width-SD 52.4 fL; White Blood Count 14.8 K/mm3 (4.8-10.8)
[2024-07-24 07:08] LABS: Albumin Level 2.6 g/dl (3.5-5.0); Chloride 103 mmol/L (98-107); Potassium 4.1 mmoL/L (3.5-5.1); Sodium 133 mmol/L (136-145)
[2024-07-24 07:11] LABS: Alanine Aminotransferase 75 U/L (12-78); Albumin/Globulin Ratio 0.8 (1.1-1.8); Alkaline Phosphatase 259 U/L (38-126); Anion Gap 4.1 mEq/L (5-15); Aspartate Amino Transferase 60 U/L (14-36); Blood Urea Nitrogen 3 mg/dl (7-17); Calcium 7.8 mg/dl (8.4-10.2); Carbon Dioxide 30 mmol/L (22.0-30.0); Creatinine Clearance Estimated 90 mL/min (50-200); Estimated Glomerular Filt Rate 104 ml/min (>60); GFR (African American) 126 ML/MIN (>60); Globulin 3.2 g/dL (1.3-3.2); Glucose 81 mg/dl (74-100); Total Protein,Serum 5.8 g/dl (6.3-8.2)
[2024-07-24 07:15] LABS: Bilirubin,Total < 0.1 mg/dl (0.2-1.3)
[2024-07-24 08:00] VITALS: BP 105/59; PULSE 91; RESP 16; TEMP 36.8; O2SAT 93
--- NOTE | 2024-07-24 08:25 | EXP.DC.SUM ---
General Admission date:: 07/21/24 Discharge date: 07/24/24 HPI HPI HPI: Mrs. 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 colorectal surgery at the [facility]). This occurred subsequent to her CABG procedure and acute AR. The patient does state that she had bowel and report is not available. She presented with severe lower abdominal pain that had been going on for a few days. She did improve with antibiotics and morphine. General surgery has seen the patient. 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 She was recently discharged from for these surgeries in June. Stool sample obtained, positive for C. difficile. Initiated on oral vancomycin. Showing improvement. Tolerating p.o. intake. Having stool output. Stable discharge home to complete antibiotic course. Problems addressed as follows: C. difficile ileitis/colitis Pouchitis - Initially treated with Zosyn. Stool panel came back positive for C. difficile. Discontinued Zosyn and transition to p.o. vancomycin 125 mg every 6 hours. Will complete 10-day course. Advance diet to low fiber/low residue without intolerance. GI was consulted, recommended holding on any intervention at this time. Monitor for improvement with treatment of infection. Still having some mild abdominal discomfort, not unexpected given her surgeries and current infection. Discharge home with close outpatient follow-up - Right upper quadrant ultrasound reviewed showing fatty liver. Otherwise negative with no biliary dilatation or lesions per my review Anxiety - Continue home medications including Wellbutrin 300 mg daily, citalopram 40 mg daily, hydroxyzine 10 mg as needed every 8 hours, and primidone 50 mg twice daily Exam Data for Last 24 hours Vital signs and Labs for Last 24 Hours: Temp Pulse Resp BP Pulse Ox O2 Del Method 97.9 F 84 20 110/64 95 Room Air 07/24/24 04:00 07/24/24 04:00 07/24/24 04:00 07/24/24 04:00 07/24/24 04:00 07/24/24 07:00 Laboratory Results - last 24 hr 07/23/24 09:20: Stl C. cayetanensis PCR Not detected, Stool Rotavirus (PCR) Not detected, Stl Adenov F 40/41 PCR Not detected, Stool Astrovirus (PCR) Not detected, Stool Campylobacter PCR Not detected, Stl C.difficile Tox PCR Detected A, Stool Cryptosporidium PCR Not detected, Stl E.coli Shiga Tox PCR Not detected, Stool E coli O157 PCR Not detected, Stl Enterotoxigenic E PCR Not detected, Stool EPEC (PCR) Not detected, Stool EAEC (PCR) Not detected, Stl E. histolytica PCR Not detected, Stool Giardia Lamblia PCR Not detected, Stool Salmonella PCR Not detected, Stool Sapovirus (PCR) Not detected, Stl P. shigelloides PCR Not detected, Stl Shigella/EIEC PCR Not detected, St Y.enterocolitica PCR Not detected, Stool Vibrio (PCR) Not detected, Stl Vibrio cholerae PCR Not detected, Stl Norovirus GI/GII PCR Not detected 07/23/24 10:30: POC Glucose 88 07/24/24 05:45: POC Glucose 83 07/24/24 05:50: WBC 14.8 H D, RBC 3.75 L, Hgb 10.6 L, Hct 34.8 L, MCV 92.8, MCH 28.3, MCHC 30.5 L, RDW 15.4, Plt Count 422, MPV 9.8, Neut % (Auto) 60.8, Lymph % (Auto) 24.9, [place] % (Auto) 8.8, Eos % (Auto) 4.4, Baso % (Auto) 0.7, Neut # (Auto) 9.0 H, Lymph # (Auto) 3.7, [place] # (Auto) 1.3 H, Eos # (Auto) 0.7 H, Baso # (Auto) 0.1, Sodium 133 L, Potassium 4.1, Chloride 103, Carbon Dioxide 30, Anion Gap 4.1 L, BUN 3 L, Creatinine 0.60, Estimated Creat Clear 90, Estimated GFR 104, Est GFR ( Amer) 126, Glucose 81, Calcium 7.8 L, Magnesium 2.0 D, Total Bilirubin < 0.1 L, AST 60 H D, ALT 75 D, Alkaline Phosphatase 259 H, Total Protein 5.8 L, Albumin 2.6 L, Globulin 3.2, Albumin/Globulin Ratio 0.8 L I & O for Last 24 hours: Intake & Output 06/07/25 06/08/25 06/09/25 06/10/25 23:59 23:59 23:59 23:59 Intake Total 1150 / 1493 1683 / 1833 150 / 150 Output Total 2850 / 3050 2950 / 3250 1350 / 1350 Balance -1700 / -1557 -1267 / -1417 -1200 / -1200 Weight 53.07 kg 54.488 kg 54.794 kg 53.161 kg Microbiology Reports for the Last 24 Hours: Microbiology 07/21/24 20:18 Blood Blood Culture - Preliminary NO GROWTH AFTER 48 HOURS 07/21/24 20:16 Blood Blood Culture - Preliminary NO GROWTH AFTER 48 HOURS Constitutional Constitutional: mild distress, thin, chronically ill appearing and cooperative *Routine HEENT Exam Head: Present normocephalic Eye: Present EOMI and PERRL ENT: Present mucous membranes moist *Routine Neck Exam Neck: Present supple; Absent lymphadenopathy *Routine Respiratory Exam Respiratory: Present CTA bilaterally; Absent rhonchi, wheezes or crackles *Routine Cardiovascular Exam Cardiovascular: Present RRR *Routine Abdominal Exam Abdominal: Present soft, normoactive bowel sounds and tenderness (non-focal); Absent rebound Comments: healed midline scar; ostomy in Rt Lower abdomen, stoma pink, liquid stool output *Routine Rectal Exam Patient deferred: visual exam *Routine Exam Patient deferred: external exam *Routine Extremities Exam Extremities: Absent cyanosis, clubbing or edema *Routine Skin Exam Skin: Present warm; Absent rash *Routine Neurological Exam Neurological: Present alert, oriented X3 and moving all extremities; Absent altered mental status Results Data Completed and Pending Labs on day of discharge: Labs from last 24 hours 07/24/24 07/24/24 07/23/24 05:50 05:45 10:30 WBC 14.8 H D RBC 3.75 L Hgb 10.6 L Hct 34.8 L MCV 92.8 MCH 28.3 MCHC 30.5 L RDW 15.4 Plt Count 422 MPV 9.8 Neut % (Auto) 60.8 Lymph % (Auto) 24.9 [place] % (Auto) 8.8 Eos % (Auto) 4.4 Baso % (Auto) 0.7 Neut # (Auto) 9.0 H Lymph # (Auto) 3.7 [place] # (Auto) 1.3 H Eos # (Auto) 0.7 H Baso # (Auto) 0.1 Sodium 133 L Potassium 4.1 Chloride 103 Carbon Dioxide 30 Anion Gap 4.1 L BUN 3 L Creatinine 0.60 Estimated Creat Clear 90 Estimated GFR 104 Est GFR ( Amer) 126 Glucose 81 POC Glucose 83 88 Calcium 7.8 L Magnesium 2.0 D Total Bilirubin < 0.1 L AST 60 H D ALT 75 D Alkaline Phosphatase 259 H Total Protein 5.8 L Albumin 2.6 L Globulin 3.2 Albumin/Globulin Ratio 0.8 L Stl C. cayetanensis PCR Stool Rotavirus (PCR) Stl Adenov F 40/ PCR Stool Astrovirus (PCR) Stool Campylobacter PCR Stl C.difficile Tox PCR Stool Cryptosporidium PCR Stl E.coli Shiga Tox PCR Stool E coli O157 PCR Stl Enterotoxigenic E PCR Stool EPEC (PCR) Stool EAEC (PCR) Stl E. histolytica PCR Stool Giardia Lamblia PCR Stool Salmonella PCR Stool Sapovirus (PCR) Stl P. shigelloides PCR Stl Shigella/EIEC PCR St Y.enterocolitica PCR Stool Vibrio (PCR) Stl Vibrio cholerae PCR Stl Norovirus GI/GII PCR 07/23/24 09:20 WBC RBC Hgb Hct MCV MCH MCHC RDW Plt Count MPV Neut % (Auto) Lymph % (Auto) [place] % (Auto) Eos % (Auto) Baso % (Auto) Neut # (Auto) Lymph # (Auto) [place] # (Auto) Eos # (Auto) Baso # (Auto) Sodium Potassium Chloride Carbon Dioxide Anion Gap BUN Creatinine Estimated Creat Clear Estimated GFR Est GFR ( Amer) Glucose POC Glucose Calcium Magnesium Total Bilirubin AST ALT Alkaline Phosphatase Total Protein Albumin Globulin Albumin/Globulin Ratio Stl C. cayetanensis PCR Not detected Stool Rotavirus (PCR) Not detected Stl Adenov F 40 PCR Not detected Stool Astrovirus (PCR) Not detected Stool Campylobacter PCR Not detected Stl C.difficile Tox PCR Detected A Stool Cryptosporidium PCR Not detected Stl E.coli Shiga Tox PCR Not detected Stool E coli O157 PCR Not detected Stl Enterotoxigenic E PCR Not detected Stool EPEC (PCR) Not detected Stool EAEC (PCR) Not detected Stl E. histolytica PCR Not detected Stool Giardia Lamblia PCR Not detected Stool Salmonella PCR Not detected Stool Sapovirus (PCR) Not detected Stl P. shigelloides PCR Not detected Stl Shigella/EIEC PCR Not detected St Y.enterocolitica PCR Not detected Stool Vibrio (PCR) Not detected Stl Vibrio cholerae PCR Not detected Stl Norovirus GI/GII PCR Not detected Preliminary micro results at discharge 07/21/24 20:18 Blood Culture - Preliminary Blood NO GROWTH AFTER 48 HOURS 07/21/24 20:16 Blood Culture - Preliminary Blood NO GROWTH AFTER 48 HOURS DS: Diagnosis Discharge Diagnosis (1) C. difficile colitis: Status: Acute Code(s): A04.72 - Enterocolitis due to Clostridium difficile, not specified as recurrent (2) Pouchitis: Status: Acute Code(s): K91.850 - Pouchitis Problem details: Lower abdominal/pelvic inflammatory changes status post modified Santiago's (3) Anxiety: Status: Acute Code(s): F41.9 - Anxiety disorder, unspecified (4) Chronic anxiety: Status: Acute Code(s): F41.9 - Anxiety disorder, unspecified (5) Lower abdominal pain: Status: Acute Code(s): R10.30 - Lower abdominal pain, unspecified (6) Leukocytosis: Status: Acute Code(s): D72.829 - Elevated white blood cell count, unspecified (7) Thrombocytosis: Status: Acute Code(s): D75.839 - Thrombocytosis, unspecified Meds Home Medications and Allergies Home Medications ?Medication ?Instructions ?Recorded ?Confirmed ?Type citalopram 40 mg tablet 40 mg PO DAILY 12/23/23 07/22/24 History primidone 50 mg tablet 50 mg PO BID 12/23/23 07/22/24 History bupropion HCl 300 mg 24 hr tablet, 300 mg PO DAILY 05/01/24 07/22/24 History extended release hydroxyzine HCl 10 mg tablet 10 mg PO Q8HP PRN Anxiety 05/01/24 07/22/24 History ipratropium 20 mcg-albuterol 100 1 puff inhalation QIDRT 05/01/24 07/22/24 History mcg/actuation mist for inhalation (Combivent Respimat) aspirin 81 mg chewable tablet 81 mg PO DAILY 07/21/24 07/22/24 History metoprolol tartrate 25 mg tablet 37.5 mg PO BID 07/21/24 07/22/24 History rosuvastatin 40 mg tablet 40 mg PO HS 07/21/24 07/22/24 History potassium chloride 20 mEq 40 meq PO DAILY 07/22/24 07/22/24 History tablet,extended release(part/cryst) vancomycin 50 mg/mL oral solution 125 mg (2.5 mL) PO QID 10 days 07/24/24 Rx (Firvanq) #100 mL New Prescriptions to Start Prescriptions: Allergies Allergy/AdvReac Type Severity Reaction Status Date / Time oxycodone (From Percocet) AdvReac Vomiting Verified 07/21/24 18:47 Discharge Plan Disposition Patient Disposition: Home, Self-Care Condition: Fair Discharge Order Discharge Orders: Discharge Order (Routine); Ordered 07/24/24 Ordered By: Gregg Barth Follow up Plan Follow up with: Hadley Peters II, MD [Staff Physician, Gastroenterology] - 08/29/24 9:30 am Champ Quiroz MD [Primary Care Provider, Internal Medicine] - 07/30/24 11:00 am Prescriptions/Medication Reconciliation: New vancomycin [Firvanq] 50 mg/mL Recon Soln 125 mg PO QID 10 Days Qty: 100 0RF Continued primidone 50 mg tablet 50 mg PO BID Patient Comments: TAKE 1 TABLET BY MOUTH TWICE DAILY FOR 90 DAYS citalopram 40 mg tablet 40 mg PO DAILY hydroxyzine HCl 10 mg tablet 10 mg PO Q8HP PRN (Reason: Anxiety) Patient Comments: TAKE 1 TABLET BY MOUTH EVERY 8 HOURS NEEDED FOR 15 DAYS bupropion HCl 300 mg tablet extended release 24 hr 300 mg PO DAILY Patient Comments: TAKE 1 TABLET BY MOUTH EVERY 24 HOURS Combivent Respimat 20-100 mcg/actuation mist 1 puff inhalation QIDRT Patient Comments: INHALE 1 PUFF BY MOUTH 4 TIMES DAILY aspirin 81 mg tablet,chewable 81 mg PO DAILY rosuvastatin 40 mg tablet 40 mg PO HS metoprolol tartrate 25 mg tablet 37.5 mg PO BID Patient Comments: TAKE 1 & 1/2 (ONE & ONE-HALF) TABLETS BY MOUTH TWICE DAILY potassium chloride 20 mEq tablet,ER particles/crystals 40 meq PO DAILY Problem Reconciliation Problems Reviewed?: Yes Patient Discharge Instructions ACTIVITY: Continue current activity DIET: continue same diet and advance to your usual diet Patient Instructions: DI for Sepsis -- Adult, DI for Gastroparesis, Stop Light Infection Print Language: Faroese Providers Primary Care Provider: Champ Quiroz Admit Provider: Saul Morrell Attending Provider: Saul Morrell
[2024-07-24] MEDS: buPROPion HCl SR 150MG TAB 150 MG PO (10:17)
[2024-07-24] MEDS: HEPARIN SODIUM 5,000 UNIT/ML VIAL 5000 UNIT SUBCUT (10:18)
[2024-07-24] MEDS: METOPROLOL TARTRATE 25MG TABLET 25 MG PO (10:18)
[2024-07-24] MEDS: ASPIRIN 81MG CHEWABLE TABLET 81 MG PO (10:18)
[2024-07-24] MEDS: CITALOPRAM 40MG TABLET 40 MG PO (10:18)
[2024-07-24] MEDS: PRIMIDONE 50MG TABLET 50 MG PO (10:18)
[2024-07-24] MEDS: VANCOMYCIN HCL 50MG/ML 150ML KIT 125 MG PO (10:22)
--- NOTE | 2024-07-24 10:30 | HMH.PTEV ---
Physical Therapy Evaluation Rehab PT IP Evaluation Start: 07/23/24 09:38 Freq: .once Status: Active Protocol: Document 07/24/24 10:23 SANDRA (Rec: 07/24/24 10:29 PHORELI [id number]) Subjective/History History History 53-year-old female presenting today with multiple complaints including severe anxiety stress but as well as severe lower abdominal pain. She has a hard time remembering the exact facts but states that in April she was diagnosed with a heart attack and subsequently developed a bowel where she had a colectomy and ostomy. Since that time she has been having severe anxiety stress and emotional reaction to this and crying. She states it took 2 weeks before she would even look at her abdomen. Today she has significant lower abdominal pain. This been ongoing for several days. She states that she is just very concerned that she is going to be sick again which is why she is crying. Denies any chest pain shortness of breath etc. Pt reports she lives alone, no JASMINE the home and she is generally independent with all mobility and ADLs. Subjective Subjective Pt presents awake, supine, agrees to mobility assessment. [facility] How much help from another person do you currently need... Turning from your None back to your side while in a flat bed without using bedrails? Moving from lying on None back to sitting on the side of a flat bed without using bedrails? Moving to and from a None bed to a chair ( including a wheelchair)? Standing up from a None chair using your arms? (e.g., wheelchair, bedside chair) Walking in hospital None room? Climbing 3-5 steps None with a railing? Mobility Score 24 Mobility Level [facility] Mobility Walk 250 feet or more Mobility Calculator Rehab PT IP Eval Objective Appearance Patient Behavior Appropriate Patient Orientation Person,Place,Time Difficulty following none instructions Speech Pattern Clear Ambulation Patient Able to Yes Ambulate Ambulation Observation IP General Gait No Deviations/Normal Pattern Observation Ambulation Distance 30 (feet) Ambulation Assistive Straight Cane Device Ambulation Ability Independent Balance Ability to Arise Able, uses arms to help Sitting Balance Steady, safe Standing Balance Narrow stance w/o support Dynamic Sitting Normal Balance Ability Dynamic Standing Good Balance Ability Transfers Bed Transfer Ability Independent Chair Transfer Independent Ability Sit to Stand Bed Independent Transfer Ability Sit to Stand Chair Independent Transfer Ability Rehab PT IP prob,goals,plan Problems Date of Evaluation: 07/24/24 Discharge Plan PT Discharge Plan Pt is appropriate to return home once medically stable for d/c. No current acute inpatient skilled therapy needs at this time. Eval Complexity Eval Charge Codes 14395 - High Complexity PHYSICIAN CERTIFICATION: I certify the specified therapy services for Reer Reese are required, authorized, and reviewed every 30 days.
[2024-07-24 12:00] VITALS: BP 94/64; PULSE 82; RESP 16; TEMP 36.8; O2SAT 94
[2024-07-24] MEDS: ONDANSETRON 4MG/2ML VIAL 4 MG IV (12:49)
--- NOTE | 2024-07-25 11:41 | SW/DCPLANNER ---
Spoke with patient on the phone. Patient stated that she is doing well. Patient stated that she is aware of her upcoming appointments. Patient stated that she was able to get her new medicine picked up from clinic pharmacy. Patient stated that she did not know how much of this medicine she needs to take. I asked the RN who called pharmacy and they told us how many ml to tell the patient to take. Patient stated that she has no concerns or questions at this time. Daniel Flowers
== END 2024-07-24 14:42 | disposition home or self-care (01) | DRG 872 ==
LOC: ER 21:09 → 2ND 21:49
PROVIDERS: Internal Medicine Adolescent Medicine; Internal Medicine Gastroenterology; Student in an Organized Health Care Education/Training Program; Admitting Provider Student in an Organized Health Care Education/Training Program; Emergency Provider Student in an Organized Health Care Education/Training Program; PCP Internal Medicine Adolescent Medicine; Visit Provider Student in an Organized Health Care Education/Training Program
DX: A41.9 Sepsis, unspecified organism (principal); A04.72 Enterocolitis due to Clostridium difficile, not specified as recurrent; K91.850 Pouchitis; F41.9 Anxiety disorder, unspecified; D75.839 Thrombocytosis, unspecified; Y83.3 Surgical operation with formation of external stoma as the cause of abnormal reaction of the patient, or of later complication, without mention of misadventure at the time of the procedure; Z87.891 Personal history of nicotine dependence; Z93.4 Other artificial openings of gastrointestinal tract status; I25.2 Old myocardial infarction; Z95.1 Presence of aortocoronary bypass graft; Z90.49 Acquired absence of other specified parts of digestive tract
CPT/HCPCS: 36415; 74174; 76705; 80053; 81001; 82962; 83605; 83690; 83735; 84100; 84484; 85007; 85025; 85610; 87040; 87507; 93005; 97163; J0131; J1644; J2060; J2270; J2405; J2543; J3475; J3480; J7030; J7120; Q9967

== ENCOUNTER 2024-08-07 11:11 | Observation (INO) | payer MEDICAID, SELFPAY ==
--- OUTSIDE RECORDS SUMMARY | 2024-05-01 23:01 | XMS_ITS | Encounter Summary ---
Author Organization Healthcare Address [address] [place] [address] Care Team Providers Care Is Support Analyst Name Role Phone Pcp, No Primary Care Provider Unavailabl e Reason for Referral * Consultation (Routine) - Authorized Specialty Diagnoses / Procedures Referred By Contac t Referred To Contact Cardiac Rehabilitation Diagnoses S/P CABG x 4 Maite Austin MD [address] [address] Phone: tel: fax: [facility] Cardiac Rehabilitation [address], [address] [place] [address] Phone: tel: fax: Referral ID Status Reason Start Date Expiration Date V isits Requested Visits Authorized [id number] Authorized 06/21/2024 12/21/2025 1 1 * Consultation (Routine) - Closed Specialty Diagnoses / Procedures Referred By Contac t Referred To Contact Diagnoses S/P colon resection Trinity Yousif S, ADMISSIONS SUPERVISOR [address] [facility] [address] [place] [address] Phone: tel: fax: Lidia Troncoso MD [address] [facility] [address] [place] [address] Phone: tel: fax: Referral ID Status Reason Start Date Expiration Date V isits Requested Visits Authorized [id number] Closed Specialty Services Required 06/21/2024 12/21/2025 1 1 Scheduling Instructions Follow up 4-6 weeks * Home Health (Routine) - Authorized Specialty Diagnoses / Procedures Referred By Contac t Referred To Contact Home Health Services / Case Management Diagnoses S/P CABG x 4 Maite Austin MD [address] Phone: tel: fax: Referral ID Status Reason Start Date Expiration Date Visits Requested Visits Authorized [id number] Authorized Specialty Services Required 06/19/2024 12/19/2025 999 999 * Home Health (Routine) - Authorized Specialty Diagnoses / Procedures Referred By Contac t Referred To Contact Home Health Services / Case Management Diagnoses S/P CABG x 4 Maite Austin MD [address] [address] Phone: tel: fax: Referral ID Status Reason Start Date Expiration Date Visits Requested Visits Authorized [id number] Authorized Specialty Services Required 06/15/2024 12/15/2025 999 999 * Consultation (Routine) - Authorized Specialty Diagnoses / Procedures Referred By Contact Referred To Contact Interventional Radiology Diagnoses Abdominal fluid collection Maite Austin MD [address] [address] Phone: tel:[phone] fax:[phone] [facility] Vascular Interventional Radiology [address] [place] [address] Phone: tel: Referral ID Status Reason Start Date Expiration Date Visits Requested Visits Authorized [id number] Authorized Specialty Services Required 06/04/2024 12/04/2025 1 1 * Consultation (Routine) - Authorized Specialty Diagnoses / Procedures Referred By Kathe deutsch Referred To Contact Cardiac Rehabilitation Diagnoses CAD, multiple vessel Maite Austin MD [address] [facility] [address] [place] [address] Phone: tel: fax: [facility] Cardiac Rehabilitation [address], [address] [place] [address] Phone: tel: fax: Referral ID Status Reason Start Date Expiration Date V isits Requested Visits Authorized [id number] Authorized 05/06/2024 11/05/2025 1 1 Reason for Visit * Auth/Cert (Routine) Specialty Diagnoses / Procedures Referred By Kathe deutsch Referred To Contact Diagnoses CAD, multiple vessel Acute NSTEMI, Left main stenosis, CAD Edson Mcclure DO [address] [place] [address] Phone: tel: fax: [facility] [address] [place] [address] Referral ID Status Reason Start Date Expiration Date Visits Re quested Visits Authorized [id number] 1 1 Encounter Details Date Type Department Care Team (Latest Contact Info) Description 05/01/2024 11:01 PM EDT - 06/21/2024 3:41 PM EDT Hospital Encounter [facility] Inpatient [address] [place] [id number] Edson Mcclure DO [address] [place] [address] Erum Bahena MD [address] [id number] Maite Austin MD [address] [place] [address] S/P colon resection (Primary Dx); CAD, multiple [...] any time in the past 12 m [facility], were you homeless or living in a alf (including now)? No 05/02/2024 Utilities Answer Date [...] not available in floor stock, contact Materials [phone]. *Saline flushes can be supplied via Meds [...] the drain. Contact the [facility] at [phone], or discuss at your next follow-up visit. [...] the drain system dry. Follow up with [facility] at [phone] for appointments or questions. Follow the [id number] directions in the Flushable Drain Care handout. [...] Follow up and other appointments with the [facility] First follow-up visit. We will call you to schedule a follow-up visit with the Vascular and Interventional Radiology Clinic. You should be seen in our clinic within 2 weeks after leaving the hospital. If you have not been contacted to schedule this appointment, please contact the [facility] at [phone]. To schedule or reschedule a clinic visit, call [phone]. To reschedule a procedure, call our schedulers at [phone], option 4. [facility] location and phone number Vascular & Interventional Radiology Clinic [facility], 1st floor [address] [place] [address] In case of emergency For any emergency, please go to the nearest Emergency Room or dial [phone]. If you have questions or concerns about the drain Tuesday-Tuesday, 8 a.m.-4:30 p.m., call the [facility] at [phone]. After hours, weekends, and holidays, call [phone]. Ask for the Interventional Radiology provider architectural sales consultant. Drainage Log You must keep a daily [...] saline. Clamp the tube and then flush [id number] normal saline. Then unclamp the tube to [...] - You will be scheduled with Dr. Mancsuo in 2 weeks after discharge - You will follow up with Dr. Troncoso 4-6 weeks after discharge Questions or Concerns and Appointments For appointments please call our General Surgery Clinic at [phone]. If there are questions or concerns after discharge from the hospital, call Leola Montano, Nurse Coordinator between 7am-3pm at [phone]. If it is after hours, weekends, and holidays please call [phone] and ask for the resident architectural sales consultant for Emergency General Surgery. Medication requests should be made between the hours of 9:00 AM to 3:00 PM Tuesday thru Tuesday. Please note that based upon recent changes to [place] law related to prescribing opioid pain medications, [...] is complete. Referral will be sent to [facility] to [facility], [facility]. She is aware that [place] will contact her to discuss andschedule. Cardiac [...] rehabilitation program. 2. Eligibility: CABG 3. Exceptions/exclusions: [facility] Cardiac Rehab Exclusions: None 4. Referral: [facility] Cardiac Rehab Referral: Patient will consider participating in a cardiac rehabilitation program. Patient was provided with contact information for the following program(s) for consideration: Edgar Doming[facility] [place] - [phone]. 5. Information sent: Information Sent: Appropriate information will be sent to the receiving cardiac rehabilitation program.: * Progress Notes - Annika Perez RN - 06/21/2024 12:44 PM EDT Case Management Discharge Note Rere Hunter 53 y.o. female CSN: [id number] Admission: 05/01/2024 11:01 PM Primary Problem: CAD, multiple vessel Primary Screen Printing Inspector: Primary Caregiver: Self Assistance Available at Discharge: Availability of Care Givers (#Hours): No assistance needed Family/Screen Printing Inspector(s) Willingness Assessed to care for patient at home: Yes Family/Screen Printing Inspector(s) Readiness Assessed to care for patient at [...] Medicare Documentation: Medicare Second Notice?: No Follow-up: [facility] [address], [address] [facility] [address] [facility] Cardiology Specialty Clinic [address] [address] Go on 08/02/2024 Your appointment time is 2pm Please arrive 15 minutes early and bring bottles of medications. [facility] Vascular Interventional Radiology [address] [facility] [address] Lidia Troncoso MD [address] [facility] [phone] Discharge Transportation: Transportation Anticipated: family or friend will provide Transportation Home at Discharge: Family/Friend will Provide Follow Up Transport: Transportation Needed to Follow up Appoinments: Family/Friend will Provide Additional Comments: Per primary team patient is medically ready for discharge. CM confirmed rollator in room, and that [employer] will deliver her ostomy supplies. Cm sent referral to [facility] for wound dressings, but was denied. Patient has outpatient script for PT/OT. Patient agreeable with discharge plan. No CM/SW needs identified. Family to transport and assist upon discharge. Annika Perez RN * Can KelleyJAMISON - DoctorAmy RN - 06/21/2024 12:27 PM EDT Images from the original note were not included. [id number] Naloxone Nasal [place] Brand Name(s): Kloxxado??, Narcan??, Rezenopy??; also available [...] pharmacist for the instructions or visit the extrusion press adjuster's website to get the instructions. You should [...] or doctor for a copy of the extrusion press adjuster's information for the patient. Are there OTHER [...] to the Food and Drug Administration's (FDA) [employer] Adverse Event Reporting program online (https://www.fda.gov/Safety/Rock Controltch) or by phone ( ). What should [...] and out of their sight and reach. https://www.upandThe DoBand Campaign.org Unneeded medications should be disposed of in [...] of all of the prescription and nonprescription (beod-eqi-hulrqxe) medicines you are taking, as well as [...] or pharmacist about specific clinical use. The [place] [employer] represents that the information provided hereunder was formulated with a reasonable standard of care, and in conformity with professional standards in the field. The [place] [employer] makes no representations or warranties, express or implied, including, but not limited to, any implied warranty of merchantability and/or fitness for a particular purpose, with respect to such information and specifically disclaims all such warranties. Users are advised that decisions regarding drug therapy are complex medical decisions requiring the independent, informed decision of an appropriate health rn transitional care, and the information is provided for informational purposes only. The entire monograph for a drug should be reviewed for a thorough understanding of the drug's actions, uses and side effects. The [place] [employer] does not endorse or recommend the use of any drug.The information is not a substitute for medical care. AHFS?? Patient Medication Information?. ?? Copyright, 2023. The [place] [employer]??, [address], [address], [place], [place]. All Rights Reserved. Duplication for commercial use must be authorized by [facility]. Selected Revisions: September 03, 2023. AHFS?? Patient Medication Information?. ?? Copyright, 2024 * Can KelleyFORMERLY [facility] - Amy Sultana RN - 06/21/2024 12:27 PM EDT Images from the original note were not included. [id number] Simethicone Brand Name(s): Mt?? Anti-Gas, Colic Drops, [...] and out of their sight and reach. https://www.ImmunomendThe DoBand Campaign.org Unneeded medications should be disposed of in [...] of all of the prescription and nonprescription (theg-smy-xxarifi) medicines you are taking, as well as [...] or pharmacist about specific clinical use. The [place] [employer] represents that the information provided hereunder was formulated with a reasonable standard of care, and in conformity with professional standards in the field. The [place] [employer] makes no representations or warranties, express or implied, including, but not limited to, any implied warranty of merchantability and/or fitness for a particular purpose, with respect to such information and specifically disclaims all such warranties. Users are advised that decisions regarding drug therapy are complex medical decisions requiring the independent, informed decision of an appropriate health rn transitional care, and the information is provided for informational purposes only. The entire monograph for a drug should be reviewed for a thorough understanding of the drug's actions, uses and side effects. The [place] [employer] does not endorse or recommend the use of any drug.The information is not a substitute for medical care. AHFS?? Patient Medication Information?. ?? Copyright, 2023. The [place] [employer]??, [address], [address], [place], [place]. All Rights Reserved. Duplication for commercial use must be authorized by [facility]. Selected Revisions: March 31, 2017. AHFS?? Patient Medication Information?. ?? Copyright, 2024 * Can KelleyJAMISON - Amy Sultana RN - 06/21/2024 12:27 PM EDT Images from the original note were not included. [id number] Rosuvastatin Brand Name(s): Crestor??, Ezallor?? Sprinkle??, Roszet?? [...] and out of their sight and reach. https://www.[employer].com.org Unneeded medications should be disposed of in [...] be awakened, immediately call emergency services at 411. What OTHER INFORMATION should I know? Keep [...] of all of the prescription and nonprescription (xzfh-ald-marybzr) medicines you are taking, as well as [...] or pharmacist about specific clinical use. The [place] [employer] represents that the information provided hereunder was formulated with a reasonable standard of care, and in conformity with professional standards in the field. The [place] [employer] makes no representations or warranties, express or implied, including, but not limited to, any implied warranty of merchantability and/or fitness for a particular purpose, with respect to such information and specifically disclaims all such warranties. Users are advised that decisions regarding drug therapy are complex medical decisions requiring the independent, informed decision of an appropriate health rn transitional care, and the information is provided for informational purposes only. The entire monograph for a drug should be reviewed for a thorough understanding of the drug's actions, uses and side effects. The [place] [employer] does not endorse or recommend the use of any drug.The information is not a substitute for medical care. AHFS?? Patient Medication Information?. ?? Copyright, 2023. The [place] [employer] Pharmac[employer]??, [address], [address], [place], [place]. All Rights Reserved. Duplication for commercial use must be authorized by [facility]. Selected Revisions: January 29, 2024. AHFS?? Patient Medication Information?. ?? Copyright, 2024 * Can KelleyFORMERLY [facility] - Amy Sultana RN - 06/21/2024 12:27 PM EDT Images from the original note were not included. [id number] Oxycodone Brand Name(s): Oxaydo?, Oxycontin??, Roxicodone??, Roxybond??, [...] Health Services Administration (SAMHSA) National Helpline at 0-087-096-GELA. Oxycodone may cause serious or life-threatening breathing [...] doctor or pharmacist will give you the extrusion press adjuster's patient information sheet (Medication Guide) when you begin your treatment with oxycodone and each time you fill your prescription. Read theinformation carefully and ask your doctor or pharmacist if you have any questions. You can also visit the Food and Drug Administration (FDA) website (https://www.fda.gov/Drugs/DrugSafety/rwf513062.htm) or the extrusion press adjuster's website to obtain the Medication Guide. WHY [...] pharmacist for the instructions or visit the extrusion press adjuster's website to get the instructions. If symptoms [...] narrowing or widening of the pupils (dark standing rock in the eye) ?? cold, clammy skin [...] of all of the prescription and nonprescription (okre-amm-mrbhucq) medicines you are taking, as well as [...] or pharmacist about specific clinical use. The [place] [employer] represents that the information provided hereunder was formulated with a reasonable standard of care, and in conformity with professional standards in the field. The [place] [employer] makes no representations or warranties, express or implied, including, but not limited to, any implied warranty of merchantability and/or fitness for a particular purpose, with respect to such information and specifically disclaims all such warranties. Users are advised that decisions regarding drug therapy are complex medical decisions requiring the independent, informed decision of an appropriate health rn transitional care, and the information is provided for informational purposes only. The entire monograph for a drug should be reviewed for a thorough understanding of the drug's actions, uses and side effects. The [place] [employer] does not endorse or recommend the use of any drug.The information is not a substitute for medical care. AHFS?? Patient Medication Information?. ?? Copyright, 2023. The [place] [employer]System Pharmacists??, [address], [address], [place], [place]. All Rights Reserved. Duplication for commercial use must be authorized by [facility]. Selected Revisions: February 29, 2024. AHFS?? Patient Medication Information?. ?? Copyright, 2024 * Can KelleyOBI - Amy Sultana RN - 06/21/2024 12:26 PM EDT Images from the original note were not included. [id number] Metoprolol Brand Name(s): Kapspargo Sprinkle??, Lopressor??, Toprol?, [...] of all of the prescription and nonprescription (hgjb-yxm-ktpvmwp) medicines you are taking, as well as [...] or pharmacist about specific clinical use. The [place] [employer] represents that the information provided hereunder was formulated with a reasonable standard of care, and in conformity with professional standards in the field. The [place] [employer] makes no representations or warranties, express or implied, including, but not limited to, any implied warranty of merchantability and/or fitness for a particular purpose, with respect to such information and specifically disclaims all such warranties. Users are advised that decisions regarding drug therapy are complex medical decisions requiring the independent, informed decision of an appropriate health rn transitional care, and the information is provided for informational purposes only. The entire monograph for a drug should be reviewed for a thorough understanding of the drug's actions, uses and side effects. The [place] [employer] does not endorse or recommend the use of any drug.The information is not a substitute for medical care. AHFS?? Patient Medication Information?. ?? Copyright, 2023. The [place] [employer]System Pharmacists??, [address], [address], [place], [place]. All Rights Reserved. Duplication for commercial use must be authorized by [facility]. Selected Revisions: October 29, 2022. AHFS?? Patient Medication Information?. ?? Copyright, 2024 * Can KelleyFORMERLY [facility] - Amy Sultana RN - 06/21/2024 12:26 PM EDT Images from the original note were not included. [id number] Methocarbamol Brand Name(s): Robaxin??; also available generically [...] be awakened, immediately call emergency services at [phone]. What OTHER INFORMATION should I know? Keep all appointments with your doctor. Do not let anyone else take your medication. Ask your pharmacist any questions you have about refilling your prescription. It is important for you to keep a written list of all of the prescription and nonprescription (ooak-naz-ehzkmsa) medicines you are taking, as well as [...] or pharmacist about specific clinical use. The [place] [employer]. represents that the information provided hereunder was formulated with a reasonable standard of care, and in conformity with professional standards in the field. The [place] [employer]. makes no representations or warranties, express or implied, including, but not limited to, any implied warranty of merchantability and/or fitness for a particular purpose, with respect to such information and specifically disclaims all such warranties. Users are advised that decisions regarding drug therapy are complex medical decisions requiring the independent, informed decision of an appropriate health rn transitional care, and the information is provided for informational purposes only. The entire monograph for a drug should be reviewed for a thorough understanding of the drug's actions, uses and side effects. The [place] [employer] does not endorse or recommend the use of any drug.The information is not a substitute for medical care. AHFS?? Patient Medication Information?. ?? Copyright, 2023. The [place] [employer]-System Pharmacists??, [address], [address], [place], [place]. All Rights Reserved. Duplication for commercial use must be authorized by [facility]. Selected Revisions: September 28, 2016. AHFS?? Patient Medication Information?. ?? Copyright, 2024 * Can Alex - Amy Sutlana RN - 06/21/2024 12:26 PM EDT Images from the original note were not included. [id number] Aspirin Brand Name(s): Acuprin??, Anacin?? Aspirin Regimen, Ascriptin??, Aspergum??, Aspidrox??, Aspir-Mox??, Aspirtab??, Aspir-risa??, Wan?? Aspirin, Bufferin??, Buffex??, Easprin??, Ecotrin??, Empirin??,Entaprin??, Entercote??, Fasprin??, Genacote??, Gennin-FC??, Genprin??, Halfprin??, Magnaprin??, Miniprin??, Minitabs??, Ridiprin??, Sloprin??, Uni-Buff??, Uni-Tren??, Valomag??, Zorprin??, Paula-Halstead?? (as a combination product containing Aspirin, Citric Acid, Sodium Bicarbonate), Paula-Halstead??Extra Strength (as a combination product containing Aspirin, Citric Acid, Sodium Bicarbonate), Paula-Halstead?? Morning Relief (as a combination product containing Aspirin, Caffeine), Paula-Halstead?? Plus Flu (as a combination product containing Aspirin, Chlorpheniramine, Dextromethorphan), Paula-Halstead?? PM (as a combination product containing Aspirin, [...] and out of their sight and reach. https://www.ImmunomendThe DoBand Campaign.org Unneeded medications should be disposed of in [...] be awakened, immediately call emergency services at [phone]. Symptoms of overdose may include: ?? burning [...] of all of the prescription and nonprescription (okey-xhs-hucfvgb) medicines you are taking, as well as [...] or pharmacist about specific clinical use. The [place] [employer] represents that the information provided hereunder was formulated with a reasonable standard of care, and in conformity with professional standards in the field. The [place] [employer] makes no representations or warranties, express or implied, including, but not limited to, any implied warranty of merchantability and/or fitness for a particular purpose, with respect to such information and specifically disclaims all such warranties. Users are advised that decisions regarding drug therapy are complex medical decisions requiring the independent, informed decision of an appropriate health rn transitional care, and the information is provided for informational purposes only. The entire monograph for a drug should be reviewed for a thorough understanding of the drug's actions, uses and side effects. The [place] [employer] does not endorse or recommend the use of any drug.The information is not a substitute for medical care. AHFS?? Patient Medication Information?. ?? Copyright, 2023. The [place] [employer]??, [address], [address], [place], [place]. All Rights Reserved. Duplication for commercial use must be authorized by [facility]. Selected Revisions: June 28, 2020. AHFS?? Patient Medication Information?. ?? Copyright, 2024 * Can Alex - Amy Sultana RN - 06/21/2024 12:26 PM EDT Images from the original note were not included. [id number] Acetaminophen Brand Name(s): Actamin??, Feverall??, Panadol??, Tempra Quicklets??, Tylenol??, Dayquil?? (as a combination product containing Acetaminophen, Dextromethorphan, Pseudoephedrine), NyQuil Cold/Flu Relief?? (as a combination product containing Acetaminophen, Dextromethorphan, Doxylamine), Percocet?? (as a combination product containing Acetaminophen, Oxycodone) APAP, H-acacqc-iooh-aminophenol, Paracetamol IMPORTANT WARNING: Taking too much acetaminophen [...] measuring cup or syringe provided by the extrusion press adjuster to measure each dose of the solution [...] of all of the prescription and nonprescription (zxss-ejl-rjdishq) medicines you are taking, as well as [...] or pharmacist about specific clinical use. The [place] [employer] represents that the information provided hereunder was formulated with a reasonable standard of care, and in conformity with professional standards in the field. The [place] [employer] makes no representations or warranties, express or implied, including, but not limited to, any implied warranty of merchantability and/or fitness for a particular purpose, with respect to such information and specifically disclaims all such warranties. Users are advised that decisions regarding drug therapy are complex medical decisions requiring the independent, informed decision of an appropriate health rn transitional care, and the information is provided for informational purposes only. The entire monograph for a drug should be reviewed for a thorough understanding of the drug's actions, uses and side effects. The [place] [employer] does not endorse or recommend the use of any drug.The information is not a substitute for medical care. AHFS?? Patient Medication Information?. ?? Copyright, 2023. The [place] [employer]??, [address], [address], [place], [place]. All Rights Reserved. Duplication for commercial use must be authorized by [facility]. Selected Revisions: October 29, 2022. AHFS?? [...] PCP name and Address: Pcp, No [address] [id number] Referring provider name and address: No referring provider defined for this encounter. Chief Concern, Brief History of Present Illness, and Hospital Course Ms. Rere Hunter is a 53 year old with PMH significant for anxiety, depression, COPD, and tobacco abuse. She initially presented to [facility]. She ruled in for NSTEMI and [...] Your Medications These medications were sent to [facility] - [place], [place] - [address] [facility] [address] acetaminophen 500 MG tablet aspirin 81 MG [...] Fluid Collection - possible reactive secondary to AR - WBC 12.8, afebrile - continue to [...] Center 06/26/2024 11:00 AM Bc Mckee MD [facility] 07/18/2024 9:00 AM Maite Austin MD [facility] 07/31/2024 9:00 AM Lidia Troncoso MD [facility] Test Results Pending At Discharge None [...] Appliance 2 piece;Flat Barrier/Pouch 06/19/242245 Site Assessment Moist;[place] 06/19/24 224 Peristomal Assessment Intact;Clean 06/19/246 Output [...] and tobacco abuse. She initially presented to [facility]. She ruled in for NSTEMI and [...] PM * Progress Notes - Trinity Yousif, ADMISSIONS SUPERVISOR - 06/20/2024 10:23 AM EDT CVT Progress [...] and tobacco abuse. She initially presented to [facility]. She ruled in for NSTEMI and [...] Fluid Collection - possible reactive secondary to AR - WBC 12.8, afebrile - continue to [...] plan of care. Encourage mobilization. Cardiothoracic Surgery [phone] * Clinician Note - Divina Yousif - 06/20/2024 10:13 AM EDT Physical Therapy Attempt Patient Name: Rere Hunter Today's Date: 06/20/2024 Patient was attempted to be seen by physical therapy 06/20/2024 for PT Treatment however patient politely declined. PT provided gentle encouragement and education. Pt continued to refuse, reports she will mobilize with staff nurse later this date. Physical therapy team will [...] refuse, reports she will mobilize with staff nurse later this date. Occupational therapy team will follow-up as schedulepermits. Written by Keisha Sabillon on 06/20/24 at 12:39 PM. * Progress Notes - Annika Perez RN - 06/20/2024 7:40 AM EDT Case Management Adult Progress Note Rere Hunter 53 y.o. female CSN: [id number] Admission: 05/01/2024 11:01 PM Primary Problem: CAD, multiple vessel Anticipated Discharge Date: tbd Additional Comments: CM placed wound vac referral with [facility]. Annika Perez RN * Care Plan [...] and tobacco abuse. She initially presented to [facility]. She ruled in for NSTEMI and [...] Fluid Collection - possible reactive secondary to AR - WBC 12.8, afebrile - continue to [...] - [facility] Total Parenteral Nutrition (TPN) (discontinued) - Started [...] (appointment made and in chart). Cardiothoracic Surgery [phone] * Consults - Gretchen Brothers RD - 06/19/2024 12:39 PM EDT Adult Nutrition Evaluation Note Rere Hunter 53 y.o. female CSN: [id number] Room/Bed 117/117A Nutrition evaluation type: follow-up Reason [...] reports persistent abd pain with PO intake. ADMISSIONS SUPERVISOR present encourages pt to move to help [...] (Calculated): 22.09 Weight Evaluation: Overweight (BMI 25-29.9) [place] Body Weight (kg): 47.7 Percent [place] Body Weight: 111 Adjusted Body Weight (kg): 50.9 Wt Readings from Last 10 Encounters: 06/19/24 53 kg (116 lb 13.5 oz) 06/28/23 59 kg (130 lb) 04/26/23 62.6 kg (138 lb) 01/18/23 61.7 kg (136 lb) Estimated Needs: Kcal/ K-35 Kcal Provided: 5419-1970 Kcal Needs Based On: Current weight Gm Protein/ Kg : 1.5-2 Protein Provided: 81-109 Protein Needs Based On: Current weight Metabolic Cart Study Results: Current Nutrition Intake: Diet Supplements: Boost Very High Calorie Diet Order: Adult Diet Diet Texture: Regular Adult Carbohydrate Restriction: Consistent CHO 2 (3826-9600 Channing, 80 g/meal) Fat Restriction: Cardiac Other Restrictions: Other (Comment) (GI Ostomy) Percent Meals Eaten (%): avg 55% x 5 meals (06/14-06/15) Diet Experience and Nutrition History: Diet Education Provided: Will monitor Pertinent home medications: reviewed Jewish needs: Nutrition Focused Physical Exam: Physical exam [...] to 4LNC 05/08 resolved Tobacco use 05/01/2024 Screen Handler for smoking 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 Complicates all [...] 05/01/2024 Reason for Consult: wound vac to [employer]. Wound History: PMHx of CAD, HTN, COPD, [...] 06/18/241144 Stomal Appliance 2 piece;Flat Barrier/Pouch;Flat Ring;Barrier [place]/Wipe 06/18/24 114 Site Assessment Moist;[place];Raised 06/18/24 1145 Peristomal Assessment Clean;Intact 06/18/24 1145 [...] and tobacco abuse. She initially presented to [facility]. She ruled in for NSTEMI and [...] Fluid Collection - possible reactive secondary to AR - WBC 12.8, afebrile - continue to [...] - Abdominal tenderness and pain - [facility] Total Parenteral Nutrition (TPN) (discontinued) - Started [...] (appointment made and in chart). Cardiothoracic Surgery [phone] * Progress Notes - Annika Perez RN - 06/18/2024 9:11 AM EDT Case Management Adult Progress Note Rere Hunter 53 y.o. female CSN: [id number] Admission: 05/01/2024 11:01 PM Primary Problem: CAD, multiple vessel Anticipated Discharge Date: 06/21/2024 Additional Comments: KRISTINA PATEL reviewed chart and met with primary team to discuss plan of care. Patient is not medically ready for discharge at this time, continue to monitor ileus. Edward sent Fax to [facility] for ostomy supplies, will continue to follow. Update: EDWARD contacted [facility] for follow up [place] dressing changes. [...] 06/16/241999 RECs FOR HOME: 2 04/17 Wafer: #[id number] 2 04/17 bag: #[id number] 2 inch ring: #8805 Stoma powder: # 7906 Skin protective wipes: #7917 Odor eliminator and lubricant: #[id number] Lester Lazo RN CWOCN 06/18/2024 8:27 AM * Care Plan - Luca Urbano RN - 06/18/2024 7:30 AM EDT Problem: Adult Inpatient Plan of Care Goal: Plan of Care Review Outcome: Ongoing, Progressing Flowsheets Taken 06/17/2024 [id number] by Brooklyn Miller RN Progress: no change [...] Progressing * Progress Notes - Trinity Yousif, ADMISSIONS SUPERVISOR - 06/17/2024 10:08 AM EDT CVT Progress [...] and tobacco abuse. She initially presented to [facility]. She ruled in for NSTEMI and [...] Fluid Collection - possible reactive secondary to AR - WBC 12.8, afebrile - continue to [...] - Abdominal tenderness and pain - [facility] Total Parenteral Nutrition (TPN) (discontinued) - Started [...] in chair for all meals. Cardiothoracic Surgery [phone] * Progress Notes - Trinity Yousif APRN [...] and tobacco abuse. She initially presented to [facility]. She ruled in for NSTEMI and [...] Fluid Collection - possible reactive secondary to AR - WBC 12.8, afebrile - continue to [...] pain - Abdominal tenderness and pain - [facility] Total Parenteral Nutrition (TPN) (discontinued) - Started [...] to encourage to eat. Mobilize. Cardiothoracic Surgery [phone] * Progress Notes - Annika Perez RN - 06/15/2024 1:11 PM EDT Case Management Discharge Note Rere Hunter 53 y.o. female CSN: [id number] Admission: 05/01/2024 11:01 PM Primary Problem: CAD, multiple vessel Primary Screen Printing Inspector: Primary Caregiver: Self Assistance Available at Discharge: Availability of Care Givers (#Hours): No assistance needed Family/Screen Printing Inspector(s) Willingness Assessed to care for patient at home: Yes Family/Screen Printing Inspector(s) Readiness Assessed to care for patient at [...] Medicare Documentation: Medicare Second Notice?: No Follow-up: [employer] [facility] [address], [address] [facility] [address] [facility] Cardiology Specialty Clinic [facility] [place] [address] Go on 08/02/2024 Your appointment time is 2pm Please arrive 15 minutes early and bring bottles of medications. [facility] Interventional Radiology [address] [facility] [address] Discharge Transportation: Transportation Anticipated: family or friend will provide Transportation Home at Discharge: Family/Friend will Provide Follow Up Transport: Transportation Needed to Follow up Appoinments: Family/Friend will Provide Additional Comments: Per primary team patient is medically ready and may discharge over the weekend. CM placed rollator referral to [facility]. CM notified primary team to give patient a script for outpatient Pt/OT. Patient is agreeable with discharge plan. No CM/SW needs identified. Daughter to assist and transport upon discharge. Annika Perez RN * Progress Notes - Trinity Yousif, ADMISSIONS SUPERVISOR - 06/15/2024 9:17 AM EDT CVT Progress [...] and tobacco abuse. She initially presented to [facility]. She ruled in for NSTEMI and [...] Fluid Collection - possible reactive secondary to AR - WBC 12.8, afebrile - continue to [...] with no acute intracranial abnormalities. Cardiothoracic Surgery [phone] * Care Plan - Lelia Nuñez RN [...] Note Rere Hunter 53 y.o. female CSN: [id number] Room/Bed 117/117A Nutrition evaluation type: follow-up Reason [...] reports persistent abd pain with PO intake. ADMISSIONS SUPERVISOR present encourages pt to move to help [...] O2 Delivery Method: Nasal cannula with capnography Babcock Coma Scale Score: 15 Shaan Scale Score: [...] (Calculated): 22.71 Weight Evaluation: Overweight (BMI 25-29.9) [place] Body Weight (kg): 47.7 Percent [place] Body Weight: 114 Adjusted Body Weight (kg): 50.9 Wt Readings from Last 10 Encounters: 06/14/24 54.5 kg (120 lb 2.4 oz) 06/28/23 59 kg (130 lb) 04/26/23 62.6 kg (138 lb) 01/18/23 61.7 kg (136 lb) Estimated Needs: Kcal/ K-35 Kcal Provided: 0081-3530 Kcal Needs Based On: Current weight Gm Protein/ Kg : 1.5-2 Protein Provided: 81-109 Protein Needs Based On: Current weight Metabolic Cart Study Results: Current Nutrition Intake: Diet Supplements: Boost Very High Calorie, Roque Packet Diet Order: Adult Diet Diet Texture: Regular Adult Carbohydrate Restriction: Consistent CHO 2 (8594-3102 Channing, 80 g/meal) Fat Restriction: Cardiac Other Restrictions: Other (Comment) (GI: Ostomy) Percent Meals Eaten (%): No updates att Diet Experience and Nutrition History: Diet Education Provided: Will monitor Pertinent home medications: reviewed Jewish needs: Nutrition Focused Physical Exam: Physical exam [...] once daily + Roque BID (located in [employer]). -Document PO intake in flowsheet -TF Rec's [...] Date Anxiety COPD (chronic obstructive pulmonary disease) ([facility]) 05/01/2024 Continue Duo nebs q6 SPO2 goal >88% Depression GERD (gastroesophageal reflux disease) 05/01/2024 Continue Protonix 40 mg daily Hyperkalemia 05/06/2024 Now resolved, pt with hypokalemia requiring replacement On mechanically assisted ventilation ([facility]) 05/06/2024 Arrived to ICU intubated 05/07 extubated to 4LNC 05/08 resolved Tobacco use 05/01/2024 Screen Handler for smoking 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 Complicates all [...] admission Level of Mobility Ambulatory- community Mobility [place] Independent gait without device (pt is the [...] unaware when pt may be discharged from [facility]. Acquisition Associate (if applicable) OBJECTIVE & INTERVENTIONS PAIN Pain [...] Treatment Minutes 23 BED MOBILITY Level of [place] Physical/Non- physical Assist Adaptive Equipment Utilized Rolling/ Turning Scooting/ Bridging Stand-by assist Set-up required, Minimal cues Supine to Sit Stand-by assist Set-up required, Minimal cues Sit to Supine Interventions TRANSFERS Level of [place] Physical/Non- physical Assist Adaptive Equipment Utilized Sit to Stand Stand-by assist Set-up required, Minimal cues Rollator Stand to sit Stand-by assist Verbal Cues, Set-up required Rollator Bed to Chair Toilet Transfer Shower Transfer Interventions AMBULATION Level of [place] Distance Adaptive Equipment Utilized Ambulation Standby assist 640 ft Rollator Comments Safely done. Fatigued after 500 ft . DEPARTMENT SUPERVISOR presence was necessary for: * managing lines [...] Note Rere Hunter 53 y.o. female CSN: [id number] Admission: 05/01/2024 11:01 PM Primary Problem: CAD, [...] extended L colectomy and end colostomy creation ([facility]) 06/04: IR-guided drain Interval: resting in bed, [...] Addendum 05/23/2024 8:44 AM by Marybel Suarez, ADMISSIONS SUPERVISOR Patient presented to OSH on 05/01/24 c/o chest pain, C reveal mvCAD S/p CABG with Dr. Austin on 05/07 Anxiety and depression Yes Overview Addendum 05/23/2024 8:43 AM by Marybel Suarez, ADMISSIONS SUPERVISOR Continue home bupropion XL 300 mg daily Continue home citalopram 40 mg daily Continue PRN hydroxyzine 25 mg q6 COPD (chronic obstructive pulmonary disease) ([facility]) Yes Overview Addendum 05/23/2024 8:43 AM by Marybel Suaerz, ARASH Duo nebs q6 Wean O2 for SPO2 goal >88% Tobacco use Yes Overview Signed 05/01/2024 8:37 PM by Marylu Carvajal APRN, DNP Screen Handler for smoking 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 Complicates all aspects of care and recovery NSTEMI (non-ST elevated myocardial infarction) (CMS/HCC) Yes Overview Addendum 05/22/2024 11:00 AM by Jose Aburto MD Diagnosed at OSH with elevated troponins of 0.05 to 0.23 to 0.16 Started on heparin drip DEPARTMENT SUPERVISOR, 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 Repeat troponins pending 05/07 [...] Addendum 05/23/2024 8:50 AM by Marybel Suarez, ADMISSIONS SUPERVISOR Remains febrile with elevated EBC Cultures ordered and pending Thrombocytosis Yes Hypocalcemia Yes Hyperlipidemia Yes Overview Signed 05/23/2024 8:47 AM by Marybel Suarez, ADMISSIONS SUPERVISOR Restart statin when no longer NPO THOM (obstructive sleep apnea) Yes Overview Addendum 05/23/2024 8:45 AM by Marybel Suarez, ADMISSIONS SUPERVISOR Refusing home CPAP remains on NC S/P CABG x 4 Not Applicable Overview Addendum 05/23/2024 8:45 AM by Marybel Suarez, ADMISSIONS SUPERVISOR 05/06 4vCABG w/ Dr. Austin Aspirin, statin, [...] and tobacco abuse. She initially presented to [facility]. She ruled in for NSTEMI and [...] Fluid Collection - possible reactive secondary to AR - WBC 12.8, afebrile - continue to [...] for help from now on. Cardiothoracic Surgery [phone] * Progress Notes - Lester Lazo RN [...] Stomal Appliance 1 piece;2 piece;Flat Barrier/Pouch;Flat Ring;Barrier [place]/Wipe 06/13/24 1100 Site Assessment Moist;[place];Raised 06/13/24 1100 Peristomal Assessment Intact;Clean 06/13/24 1100 [...] and tobacco abuse. She initially presented to [facility]. She ruled in for NSTEMI and [...] Fluid Collection - possible reactive secondary to AR - WBC 12.8, afebrile - continue to [...] Continue wound vac changes MWF. Cardiothoracic Surgery [phone] * Care Plan - Alessandra Keene RN [...] Family/Caregiver Present: No Family/Caregiver: Other (Specify) (Friend) Acquisition Associate: Not Applicable Presentation Oxygen Therapy: None (Room [...] Mobility Bed Mobility Exam: Rolling/Turning Level of [place]: Maximum assist (25% patient effort) Physical/Nonphysical Assist: Verbal Cues, Nonverbal cues (demo/gestures), Additional assist utilized for safety, Moderate cues Bed Mobility Exam: Scooting/Bridging Level of [place]: Minimum assist (75% patient's effort) Physical/Nonphysical Assist: Verbal Cues, Nonverbal cues (demo/gestures) Assistive Device: (drawsheet) Bed Mobility Exam: Supine to Sit Level of [place]: Moderate assist (50% patient's effort) Physical/Nonphysical Assist: Verbal Cues, Set-up required, HOB elevated Transfers Transfer Exam: Sit to stand Level of [place]: Stand-by assist Physical/Nonphysical Assist: Verbal Cues, Set-up required Assistive Device: Rollator Transfer Exam: Stand to Sit Level of [place]: Stand-by assist Physical/Nonphysical Assist: Verbal Cues, Set-up [...] Care Family/Caregiver Present: No Family/Caregiver: Adult Son Acquisition Associate: Not Applicable Presentation Oxygen Therapy: None (Room [...] Mobility Bed Mobility Exam: Scooting/Bridging Level of [place]: Minimum assist (75% patient's effort) Physical/Nonphysical Assist: Verbal Cues, Nonverbal cues (demo/gestures) Assistive Device: Other (drawsheet) Bed Mobility Exam: Supine to Sit Level of [place]: Moderate assist (50% patient's effort) Physical/Nonphysical Assist: Verbal Cues, Set-up required, HOB elevated Assistive Device: Other (drawsheet) Bed Mobility Exam: Sit to Supine Level of [place]: Minimum assist (75% patient's effort) Physical/Nonphysical Assist: Nonverbal cues (demo/gestures), Verbal Cues, Additional assist utilized for safety Transfers Transfer Exam: Sit to stand Level of [place]: Stand-by assist Physical/Nonphysical Assist: Verbal Cues, Set-up required Assistive Device: Rollator Transfer Exam: Stand to Sit Level of [place]: Stand-by assist Physical/Nonphysical Assist: Verbal Cues, Set-up required Assistive Device: Rollator Toilet Transfer Level of [place]: Minimum assist (75% patient's effort) Physical/Nonphysical Assist: [...] and tobacco abuse. She initially presented to [facility]. She ruled in for NSTEMI and [...] Fluid Collection - possible reactive secondary to AR - WBC 12.8, afebrile - continue to [...] may have to restart TPN Cardiothoracic Surgery [phone] * Valentine Guerrero RN - 06/11/2024 7:01 PM EDT Images from the original note were not included. [id number] Colostomy: Managing Your Nutrition You don?t have [...] and other carbonated beverages. ?? Broccoli. ?? [place] sprouts. ?? Cabbage. ?? Cauliflower. ?? [place]. ?? Cucumbers. ?? Dried beans. ?? Milk and other dairy products with lactose. ?? Mushrooms. ?? Nuts. ?? Onions. ?? Peas. ?? Sodas. ?? Spicy foods. Foods that can cause odor include: ?? Asparagus. ?? Broccoli. ?? [place] sprouts. ?? Cabbage. ?? Cheese. ?? Eggs. [...] bleeds. Last Reviewed Date: 2024 00:00:00 ?? 6164-0686 [employer]. All rights reserved. This information is not intended as a substitute for professional medical care. Always follow your healthcare professional's instructions. * Consults - Gretchen Brothers RD - 06/11/2024 3:41 PM EDT Adult Nutrition Evaluation Note Rere Hunter 53 y.o. female CSN: [id number] Room/Bed 117/117A Nutrition evaluation type: follow-up Reason [...] reports persistent abd pain with PO intake. ADMISSIONS SUPERVISOR present encourages pt to move to help [...] O2 Delivery Method: Nasal cannula with capnography Babcock Coma Scale Score: 15 Shaan Scale Score: [...] (Calculated): 22.67 Weight Evaluation: Overweight (BMI 25-29.9) [place] Body Weight (kg): 47.7 Percent [place] Body Weight: 114 Adjusted Body Weight (kg): 50.9 Wt Readings from Last 10 Encounters: 06/11/24 54.4 kg (119 lb 14.9 oz) 06/28/23 59 kg (130 lb) 04/26/23 62.6 kg (138 lb) 01/18/23 61.7 kg (136 lb) Wt last f/u was 56.4 kg; 3.5% change if accurate. Estimated Needs: Kcal/ K-35 Kcal Provided: 2751-0946 Kcal Needs Based On: Current weight Gm Protein/ Kg : 1.5-2 Protein Provided: 81-109 Protein Needs Based On: Current weight Metabolic Cart Study Results: Current Nutrition Intake: Diet Supplements: Boost Very High Calorie, Roque Packet Diet Order: Adult Diet Diet Texture: Regular Adult Carbohydrate Restriction: Consistent CHO 2 (2384-0252 Channing, 80 g/meal) Fat Restriction: Cardiac Other [...] Provided: Will monitor Pertinent home medications: reviewed Jewish needs: Nutrition Focused Physical Exam: Physical exam [...] once daily + Roque BID (located in [employer] utility). -Modifying Boost to magic cup -Document [...] hypokalemia requiring replacement On mechanically assisted ventilation ([facility]) 05/06/2024 Arrived to ICU intubated 05/07 extubated to 4C 05/08 resolved Tobacco use 05/01/2024 Screen Handler for smoking 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 Complicates all [...] Addendum 05/23/2024 8:44 AM by Marybel Suarez, ADMISSIONS SUPERVISOR Patient presented to OSH on 05/01/24 c/o chest pain, LHC reveal mvCAD S/p CABG with Dr. Austin on 05/07 Anxiety and depression Yes Overview Addendum 05/23/2024 8:43 AM by Marybel Suarez, ADMISSIONS SUPERVISOR Continue home bupropion XL 300 mg daily Continue home citalopram 40 mg daily Continue PRN hydroxyzine 25 mg q6 COPD (chronic obstructive pulmonary disease) ([facility]) Yes Overview Addendum 05/23/2024 8:43 AM by Marybel Suarez, ARASH Duo nebs q6 Wean O2 for SPO2 goal >88% Tobacco use Yes Overview Signed 05/01/2024 8:37 PM by Marylu Carvajal APRN, DNP Screen Handler for smoking 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 Complicates all aspects of care and recovery NSTEMI (non-ST elevated myocardial infarction) ([facility]) Yes Overview Addendum 05/22/2024 11:00 AM by Jose Aburto MD Diagnosed at OSH with elevated troponins of 0.05 to 0.23 to 0.16 Started on heparin drip DEPARTMENT SUPERVISOR, 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 Repeat troponins pending 05/07 [...] Addendum 05/23/2024 8:50 AM by Marybel Suarez, ADMISSIONS SUPERVISOR Remains febrile with elevated EBC Cultures ordered and pending Thrombocytosis Yes Hypocalcemia Yes Hyperlipidemia Yes Overview Signed 05/23/2024 8:47 AM by Marybel Suarez, ADMISSIONS SUPERVISOR Restart statin when no longer NPO THOM (obstructive sleep apnea) Yes Overview Addendum 05/23/2024 8:45 AM by Marybel Suarez, ADMISSIONS SUPERVISOR Refusing home CPAP remains on NC S/P CABG x 4 Not Applicable Overview Addendum 05/23/2024 8:45 AM by Marybel Suarez, ADMISSIONS SUPERVISOR 05/06 4vCABG w/ Dr. Austin Aspirin, statin, beta stacey as clinically appropriate Hypertension Yes Overview Addendum 05/23/2024 8:47 AM by Marybel Suarez, ADMISSIONS SUPERVISOR Metop IV while NPO Restart PO metop when appropriate Acute blood loss anemia (ABLA) No Overview Addendum 05/23/2024 8:43 AM by Marybel Suarez, ADMISSIONS SUPERVISOR Lab Results Component Value Date HGB 9.0 [...] Note Rere Hunter 53 y.o. female CSN: [id number] Admission: 05/01/2024 11:01 PM Primary Problem: CAD, [...] and tobacco abuse. She initially presented to [facility]. She ruled in for NSTEMI and [...] Fluid Collection - possible reactive secondary to AR - WBC 12.8, afebrile - continue to [...] and tobacco abuse. She initially presented to [facility]. She ruled in for NSTEMI and [...] Fluid Collection - possible reactive secondary to AR - WBC 12.8, afebrile - continue to [...] changes MWF. Mobilize as able. Cardiothoracic Surgery [phone] * Care Plan - Jenifer Reyes RN [...] Value Units Date/Time Blood Culture (Aerobic/Anaerobet Set) [[id number]] Collected: 05/23/24 1020 Order Status: Completed Specimen: Blood, Venous Updated: 05/24/24 1101 Culture No growth at day 1 Fungal Blood Culture [[id number]] Collected: 05/17/241812 Order Status: Completed Specimen: Blood, Venous Updated: 05/24/24 0638 Culture No Fungal Growth at 1 Week AFB Blood Culture [[id number]] Collected: 05/17/241812 Order Status: Completed Specimen: Blood, [...] Weight: 61.1 kg (134 lb 12.8 oz) [place] body weight: 47.8 kg (105 lb 4.8 oz) Adjusted ideal body weight: 52.8 kg (116 lb 5.7 oz) (126.25%) of IBW Body mass index is 25.13 kg/m??. Adjusted wt: 50.9 kg (if over 125% of IBW) CENTRAL IV Access: PICC (05/18/24) Estimated Nutritional Needs: HBE: 1153 Stress Factor: 1.2-1.4 Total Calories/day: 5183-5331 Protein (amino acids): 1.3-1.6 grams/kg Protein (Amino [...] you, Valentine Mack, PharmD, BCCCP Available via edelight Secure Chat [1] Patient Active Problem List Diagnosis Anxiety and depression COPD (chronic obstructive pulmonary disease) ([facility]) CAD, multiple vessel NSTEMI (non-ST elevated myocardial infarction) ([facility]) GERD (gastroesophageal reflux disease) Leukocytosis Hyperlipidemia THOM (obstructive sleep apnea) S/P CABG x 4 Hypertension Cardiac volume overload Hypoglycemia Nausea with vomiting Acute blood loss anemia (ABLA) Gastric perforation ([facility]/HCC) On total parenteral nutrition (TPN) Ileus ([facility]) Electrolyte abnormality Colon perforation ([facility]) Post-op pain Delirium [2] Past Medical History: Diagnosis Date Anxiety COPD (chronic obstructive pulmonary disease) ([facility]) 05/01/2024 Continue Duo nebs q6 SPO2 goal >88% Depression GERD (gastroesophageal reflux disease) 05/01/2024 Continue Protonix 40 mg daily Hyperkalemia 05/06/2024 Now resolved, pt with hypokalemia requiring replacement On mechanically assisted ventilation (CMS/HCC) 05/06/2024 Arrived to ICU intubated 05/07 extubated to 4LNC 05/08 resolved Tobacco use 05/01/2024 Screen Handler for smoking 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 Complicates all [...] growth to date - Wound Vac changes [facility] Cardiothoracic Surgery [phone] * Care Plan - Cyndie Jackson RN [...] extended L colectomy and end colostomy creation ([facility]) 06/04: IR-guided drain Interval: VSS AF on RA. Drain 1 10 (5). LLQ 20 (50), ostomy 200 (155). On TPN and regular diet. Tolerating her diet but without much of an appetite. She reports eating some food. No nausea or vomiting. Calorie count pending. Continues to have bowel function. Edited by: Duane Cruz MD at 06/08/2024 5316 Relevant review of systems was obtained as [...] Addendum 05/23/2024 8:44 AM by Marybel Suarez, ADMISSIONS SUPERVISOR Patient presented to OSH on 05/01/24 c/o chest pain, LHC reveal mvCAD S/p CABG with Dr. Austin on 05/07 Anxiety and depression Yes Overview Addendum 05/23/2024 8:43 AM by Marybel Suarez, ADMISSIONS SUPERVISOR Continue home bupropion XL 300 mg daily Continue home citalopram 40 mg daily Continue PRN hydroxyzine 25 mg q6 COPD (chronic obstructive pulmonary disease) ([facility]) Yes Overview Addendum 05/23/2024 8:43 AM by Marybel Suarez, ARASH Duo nebs q6 Wean O2 for SPO2 goal >88% NSTEMI (non-ST elevated myocardial infarction) ([facility]) Yes Overview Addendum 05/22/2024 11:00 AM by Jose Aburto MD Diagnosed at OSH with elevated troponins of 0.05 to 0.23 to 0.16 Started on heparin drip DEPARTMENT SUPERVISOR, 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 Repeat troponins pending 05/07 [...] Signed 05/23/2024 8:47 AM by Marybel Suarez, ADMISSIONS SUPERVISOR Restart statin when no longer NPO THOM [...] Addendum 05/23/2024 8:43 AM by Marybel Suarez, ADMISSIONS SUPERVISOR Lab Results Component Value Date HGB 9.0 [...] bridge) MWF by nursing - Follow SGE LNEA output (superior drain in abscess cavity near [...] 1507 Stomal Appliance 2 piece;Flat Barrier/Pouch;Flat Ring;Barrier [place]/Wipe 06/08/24 1507 Site Assessment Moist;Raised;Red 06/08/24 1507 Peristomal Assessment Intact;Clean 06/08/24 1507 Treatment Bag change;Site care 06/08/24 1507 Output (mL) 250 mL 06/08/24 1507 Gastric Output Appearance Watery 06/08/24 1507 Gastric Output Color Brown 06/08/24 1507 Lester Lazo RN [facility] 06/08/2024 3:10 PM * Consults - [...] RD note 06/07 Kcal/ K-35 Kcal Provided: 0863-9012 Kcal Needs Based On: Current weight Gm Protein/ Kg : 1.5-2 Protein Provided: 81-109 Protein Needs Based On: Current weight 06/08: Calorie count results: 06/04: ~658kcal; 26g protein 06/05: ~65kcal; 3g protein 06/06: ~66kcal; 4g protein 3-day ave (06/04-06/06) = 263kcal; 11g protein. Patient meeting ~14-16%kcal; 10- 13% protein needs. RD to follow. Garrett Ruiz DTR * Progress Notes - Dulce Alamo, ADMISSIONS SUPERVISOR - 06/08/2024 9:11 AM EDT CVT Progress [...] - Follow cultures - Wound Vac changes [facility] Cardiothoracic Surgery [phone] * Progress Notes - Db Kline - [...] Value Units Date/Time Blood Culture (Aerobic/Anaerobet Set) [[id number]] Collected: 05/23/24 1020 Order Status: Completed Specimen: Blood, Venous Updated: 05/24/24 1101 Culture No growth at day 1 Fungal Blood Culture [[id number]] Collected: 05/17/241812 Order Status: Completed Specimen: Blood, Venous Updated: 05/24/24 0638 Culture No Fungal Growth at 1 Week AFB Blood Culture [[id number]] Collected: 05/17/241812 Order Status: Completed Specimen: Blood, Venous Updated: 05/24/2438 AFB Culture No Mycobacterial Growth at 1 Week Vitals: Visit Vitals BP 98/63 (BP Location: Right arm, Patient Position: Lying) Pulse 87 Temp 36.7 ??C (98 ??F) (Oral) Resp 17 Babcock Coma Scale Score: 15 Shaan Scale Score: [...] Weight: 61.1 kg (134 lb 12.8 oz) [place] body weight: 47.8 kg (105 lb 4.8 oz) Adjusted ideal body weight: 52.8 kg (116 lb 5.7 oz) (126.25%) of IBW Body mass index is 25.13 kg/m??. Adjusted wt: 50.9 kg (if over 125% of IBW) CENTRAL IV Access: PICC (05/18/24) Estimated Nutritional Needs: HBE: 1153 Stress Factor: 1.2-1.4 Total Calories/day: 9327-4363 Protein (amino acids): 1.3-1.6 grams/kg Protein (Amino [...] and depression COPD (chronic obstructive pulmonary disease) ([facility]) CAD, multiple vessel NSTEMI (non-ST elevated myocardial infarction) ([facility]) GERD (gastroesophageal reflux disease) Leukocytosis Hyperlipidemia THOM (obstructive sleep apnea) S/P CABG x 4 Hypertension Cardiac volume overload Hypoglycemia Nausea with vomiting Acute blood loss anemia (ABLA) Gastric perforation ([facility]/HCC) On total parenteral nutrition (TPN) Ileus ([facility]HCC) Electrolyte abnormality Colon perforation ([facility]) Post-op pain Delirium [2] Past Medical History: Diagnosis Date Anxiety COPD (chronic obstructive pulmonary disease) ([facility]HCC) 05/01/2024 Continue Duo nebs q6 SPO2 goal >88% Depression GERD (gastroesophageal reflux disease) 05/01/2024 Continue Protonix 40 mg daily Hyperkalemia 05/06/2024 Now resolved, pt with hypokalemia requiring replacement On mechanically assisted ventilation ([facility]) 05/06/2024 Arrived to ICU intubated 05/07 extubated to 4LNC 05/08 resolved Tobacco use 05/01/2024 Screen Handler for smoking 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 Complicates all [...] Note Rere Hunter 53 y.o. female CSN: [id number] Room/Bed 117/117A Nutrition evaluation type: follow-up Reason [...] reports persistent abd pain with PO intake. ADMISSIONS SUPERVISOR present encourages pt to move to help [...] (Calculated): 23.51 Weight Evaluation: Overweight (BMI 25-29.9) [place] Body Weight (kg): 47.7 Percent [place] Body Weight: 118 Adjusted Body Weight (kg): 50.9 Wt Readings from Last 10 Encounters: 06/07/24 56.4 kg (124 lb 5.4 oz) 06/28/23 59 kg (130 lb) 04/26/23 62.6 kg (138 lb) 01/18/23 61.7 kg (136 lb) Estimated Needs: Kcal/ K-35 Kcal Provided: 2073-6469 Kcal Needs Based On: Current weight Gm Protein/ Kg : 1.5-2 Protein Provided: 81-109 Protein Needs Based On: Current weight Metabolic Cart Study Results: Current Nutrition Intake: Diet Supplements: Roque Packet, Boost Very High Calorie Diet Order: Adult Diet Diet Texture: Regular Adult Carbohydrate Restriction: Consistent CHO 2 (8264-5651 [place], 80 g/meal) Fat Restriction: Cardiac Other [...] Provided: Will monitor Pertinent home medications: reviewed Jewish needs: Nutrition Focused Physical Exam: Physical exam [...] - Continue Boost VHC once daily + Orque BID (located in UserApp utility). -Document PO intake in flowsheet Nutrition [...] Date Anxiety COPD (chronic obstructive pulmonary disease) ([facility]) 05/01/2024 Continue Duo nebs q6 SPO2 goal >88% Depression GERD (gastroesophageal reflux disease) 05/01/2024 Continue Protonix 40 mg daily Hyperkalemia 05/06/2024 Now resolved, pt with hypokalemia requiring replacement On mechanically assisted ventilation ([facility]) 05/06/2024 Arrived to ICU intubated 05/07 extubated to [facility] 05/08 resolved Tobacco use 05/01/2024 Screen Handler for smoking 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 Complicates all [...] 3. Cardiac volume overload 4. Colon perforation ([facility]) 5. Abdominal fluid collection Procedures 05/23/2024 Procedure(s): LAPAROTOMY, EXPLORATORY, possible bowel resection, possible ostomy COLECTOMY, PARTIAL Past Medical History Patient has a past medical history of Anxiety, COPD (chronic obstructive pulmonary disease) ([facility]) (05/01/2024), Depression, GERD (gastroesophageal reflux disease) (05/01/2024), Hyperkalemia (05/06/2024), On mechanically assisted ventilation ([facility]) (05/06/2024), Tobacco use (05/01/2024), and T remor (05/01/2024). Past Surgical History Patient has a past surgical history that includes section, classic; Cholecystectomy; Shoulder surgery; Abdominal adhesion surgery; Hand surgery (Right); and Coronary artery bypass graft (05/06/2024). Precautions Medical Precautions: Fall precautions, Sternal Subjective Pt agreeable to participate in OT session. Participants in Care Family/Caregiver Present: No Family/Caregiver: Adult Son Acquisition Associate: Not Applicable Presentation Oxygen Therapy: None (Room [...] admission Level of Mobility: Ambulatory- community Mobility [place]: Independent gait without device (pt is the [...] Mobility Bed Mobility Exam: Scooting/Bridging Level of [place]: Maximum assist (25% patient's effort) (Seated scooting hips towards EOB withuse of draw sheet.) Physical/Nonphysical Assist: Verbal Cues, Nonverbal cues (demo/gestures) Assistive Device: Other (draw sheet) Bed Mobility Exam: Supine to Sit Level of [place]: Maximum assist (25% patient's effort) Physical/Nonphysical Assist: Verbal Cues, Set-up required Assistive Device: Other (drawsheet) Bed Mobility Exam: Sit to Supine Level of [place]: Minimum assist (75% patient's effort) Physical/Nonphysical Assist: Nonverbal cues (demo/gestures), Verbal Cues, Additional assist utilized for safety Transfers Transfer Exam: Sit to stand Level of [place]: Contact guard Physical/Nonphysical Assist: Verbal Cues, Set-up required Assistive Device: Rollator Transfer Exam: Stand to Sit Level of [place]: Contact guard Physical/Nonphysical Assist: Verbal Cues, Set-up required Assistive Device: Rollator Toilet Transfer Level of [place]: Minimum assist (75% patient's effort) Physical/Nonphysical Assist: [...] dynamic balance and safety awareness. Standardized Assessments [facility] 6-Click Daily Activities Help from Other: Don/Doff Regular Lower Body Clothings: Little Help From Other: Bathing: Little Help From Other: Toileting: Little Help From Other: Don/Doff Upper Body Clothings: Little Help From Other: Grooming: Little Help From Other: Eating Meals: None [facility] 6 Click - Daily Activities Score: 19 [...] 3. Cardiac volume overload 4. Colon perforation ([facility]) 5. Abdominal fluid collection Procedures 05/23/2024 Procedure(s): LAPAROTOMY, EXPLORATORY, possible bowel resection, possible ostomy COLECTOMY, PARTIAL Past Medical History Patient has a past medical history of Anxiety, COPD (chronic obstructive pulmonary disease) ([facility]) (05/01/2024), Depression, GERD (gastroesophageal reflux disease) (05/01/2024), Hyperkalemia (05/06/2024), On mechanically assisted ventilation ([facility]) (05/06/2024), Tobacco use (05/01/2024), and T remor [...] admission Level of Mobility: Ambulatory- community Mobility [place]: Independent gait without device (pt is the [...] Mobility Bed Mobility Exam: Scooting/Bridging Level of [place]: Maximum assist (25% patient's effort) Physical/Nonphysical Assist: Verbal Cues, Set-up required, Additional assist utilized for safety Assistive Device: Other (draw sheet to scoot to EOB) Bed Mobility Exam: Supine to Sit Level of [place]: Maximum assist (25% patient's effort) Physical/Nonphysical Assist: Verbal Cues, Set-up required Assistive Device: Other (draw sheet) Bed Mobility Exam: Sit to Supine Level of [place]: Minimum assist (75% patient's effort) Physical/Nonphysical Assist: Nonverbal cues (demo/gestures), Verbal Cues, Additional assist utilized for safety Transfers Transfer Exam: Sit to stand Level of [place]: Contact guard Physical/Nonphysical Assist: Verbal Cues, Set-up required Assistive Device: Rollator Transfer Exam: Stand to Sit Level of [place]: Contact guard Physical/Nonphysical Assist: Verbal Cues, Set-up required Assistive Device: Rollator Toilet Transfer Level of [place]: Minimum assist (75% patient's effort) Physical/Nonphysical Assist: [...] 3-5 steps with a railing?: A little [facility] 6-Clicks Mobility Assessment Total : 17 No data recorded Standardized Assessments Standardized Assessments Standardized Assessments: [facility] 6-Clicks Mobility Assessment [facility] 6-Clicks Mobility Assessment Difficulty patient has turning [...] 3-5 steps with a railing?: A little [facility] 6-Clicks Mobility Assessment Total : 17 No [...] Value Units Date/Time Blood Culture (Aerobic/Anaerobet Set) [[id number]] Collected: 05/23/24 1020 Order Status: Completed Specimen: Blood, Venous Updated: 05/24/24 1101 Culture No growth at day 1 Fungal Blood Culture [[id number]] Collected: 05/17/241812 Order Status: Completed Specimen: Blood, Venous Updated: 05/24/24 0638 Culture No Fungal Growth at 1 Week AFB Blood Culture [[id number]] Collected: 05/17/241812 Order Status: Completed Specimen: Blood, [...] Weight: 61.1 kg (134 lb 12.8 oz) [place] body weight: 47.8 kg (105 lb 4.8 oz) Adjusted ideal body weight: 52.8 kg (116 lb 5.7 oz) (126.25%) of IBW Body mass index is 25.13 kg/m??. Adjusted wt: 50.9 kg (if over 125% of IBW) CENTRAL IV Access: PICC (05/18/24) Estimated Nutritional Needs: HBE: 1153 Stress Factor: 1.2-1.4 Total Calories/day: 2016-3510 Protein (amino acids): 1.3-1.6 grams/kg Protein (Amino [...] multiple vessel NSTEMI (non-ST elevated myocardial infarction) ([facility]) GERD (gastroesophageal reflux disease) Leukocytosis Hyperlipidemia THOM (obstructive sleep apnea) S/P CABG x 4 Hypertension Cardiac volume overload Hypoglycemia Nausea with vomiting Acute blood loss anemia (ABLA) Gastric perforation ([facility]/HCC) On total parenteral nutrition (TPN) Ileus ([facility]) Electrolyte abnormality Colon perforation ([facility]) Post-op pain Delirium [2] Past Medical History: Diagnosis Date Anxiety COPD (chronic obstructive pulmonary disease) ([facility]) 05/01/2024 Continue Duo nebs q6 SPO2 goal >88% Depression GERD (gastroesophageal reflux disease) 05/01/2024 Continue Protonix 40 mg daily Hyperkalemia 05/06/2024 Now resolved, pt with hypokalemia requiring replacement On mechanically assisted ventilation ([facility]) 05/06/2024 Arrived to ICU intubated 05/07 extubated to 4LNC 05/08 resolved Tobacco use 05/01/2024 Screen Handler for smoking 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 Complicates all [...] placed in IR Follow cultures Cardiothoracic Surgery [phone] * Progress Notes - Heather Ram - 06/07/2024 8:28 AM EDT Case Management Adult Progress Note Rere Hunter 53 y.o. female CSN: [id number] Admission: 05/01/2024 11:01 PM Primary Problem: CAD, [...] 1030 Stomal Appliance 2 piece;Flat Barrier/Pouch;Flat Ring;Barrier [place]/Wipe 06/06/24 1030 Site Assessment Intact;Moist;Raised;Red 06/06/24 1030 Peristomal Assessment Clean;Intact 06/06/24 1030 Treatment Bag change;Site care 06/06/24 1030 Output (mL) 250 mL 06/06/24 0400 Gastric Output Appearance Watery 06/06/24 1030 Gastric Output Color Brown 06/06/24 1030 Lester Lazo RN [facility] 06/06/2024 12:43 PM * Progress Notes [...] in IR 06/04 Follow cultures Cardiothoracic Surgery [phone] * Progress Notes - Cramelita Snyder MD - 06/06/2024 10:51 AM EDT [...] mg q6 COPD (chronic obstructive pulmonary disease) ([facility]) Yes Overview Addendum 05/23/2024 8:43 AM by Marybel Suarez APRN Duo nebs q6 Wean O2 for SPO2 goal >88% NSTEMI (non-ST elevated myocardial infarction) ([facility]) Yes Overview Addendum 05/22/2024 11:00 AM by Jose Aburto MD Diagnosed at OSH with elevated troponins of 0.05 to 0.23 to 0.16 Started on heparin drip DEPARTMENT SUPERVISOR, 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 Repeat troponins pending 05/07 [...] Signed 05/23/2024 8:47 AM by Marybel Suarez, ADMISSIONS SUPERVISOR Restart statin when no longer NPO THOM (obstructive sleep apnea) Yes Overview Addendum 05/23/2024 8:45 AM by Marybel Suarez, ADMISSIONS SUPERVISOR Refusing home CPAP remains on NC S/P CABG x 4 Not Applicable Overview Addendum 05/23/2024 8:45 AM by Marybel Suarez, ARASH 05/06 4vCABG w/ Dr. Austin Aspirin, statin, beta stacey as clinically appropriate Hypertension Yes Overview Addendum 05/23/2024 8:47 AM by Marybel Suarez, ADMISSIONS SUPERVISOR Metop IV while NPO Restart PO metop when appropriate Cardiac volume overload No Overview Addendum 05/18/2024 10:24 AM by Sidney Jackson MD Diuresis as clinically indicated Hypoglycemia No Overview Addendum 05/23/2024 8:46 AM by Marybel Suarez, ADMISSIONS SUPERVISOR Resolved once TPN started Nausea with vomiting No Overview Addendum 05/28/2024 8:26 AM by Sidney Jackson MD TPN running Advance PO diet as able Acute blood loss anemia (ABLA) No Overview Addendum 05/23/2024 8:43 AM by Marybel Suarez, ADMISSIONS SUPERVISOR Lab Results Component Value Date HGB 9.0 [...] Value Units Date/Time Blood Culture (Aerobic/Anaerobet Set) [[id number]] Collected: 05/23/24 1020 Order Status: Completed Specimen: Blood, Venous Updated: 05/24/24 1101 Culture No growth at day 1 Fungal Blood Culture [[id number]] Collected: 05/17/241812 Order Status: Completed Specimen: Blood, Venous Updated: 05/24/24 0638 Culture No Fungal Growth at 1 Week AFB Blood Culture [[id number]] Collected: 05/17/241812 Order Status: Completed Specimen: Blood, [...] 65 mL/hr, Last Rate: 65 mL/hr (06/05/24 5550) Current Anthropometrics: Height: 154.9 cm (5' 0.98 ) Weight: 61.1 kg (134 lb 12.8 oz) [place] body weight: 47.8 kg (105 lb 4.8 oz) Adjusted ideal body weight: 52.8 kg (116 lb 5.7 oz) (126.25%) of IBW Body mass index is 25.13 kg/m??. Adjusted wt: 50.9 kg (if over 125% of IBW) CENTRAL IV Access: PICC (05/18/24) Estimated Nutritional Needs: HBE: 1153 Stress Factor: 1.2-1.4 Total Calories/day: 5365-5339 Protein (amino acids): 1.3-1.6 grams/kg Protein (Amino [...] room. Thank you! Marysol Hurtado, PharmD PGY1 Fluid Power Mechanic Available via secure chat [1] Patient Active Problem List Diagnosis Anxiety and depression COPD (chronic obstructive pulmonary disease) ([facility]) CAD, multiple vessel NSTEMI (non-ST elevated myocardial infarction) ([facility]) GERD (gastroesophageal reflux disease) Leukocytosis Hyperlipidemia THOM (obstructive sleep apnea) S/P CABG x 4 Hypertension Cardiac volume overload Hypoglycemia Nausea with vomiting Acute blood loss anemia (ABLA) Gastric perforation ([facility]/HCC) On total parenteral nutrition (TPN) Ileus (CMS/HCC) Electrolyte abnormality Colon perforation ([facility]/HCC) Post-op pain Delirium [2] Past Medical History: Diagnosis Date Anxiety COPD (chronic obstructive pulmonary disease) (CMS/HCC) 05/01/2024 Continue Duo nebs q6 SPO2 goal >88% Depression GERD (gastroesophageal reflux disease) 05/01/2024 Continue Protonix 40 mg daily Hyperkalemia 05/06/2024 Now resolved, pt with hypokalemia requiring replacement On mechanically assisted ventilation ([facility]) 05/06/2024 Arrived to ICU intubated 05/07 extubated to 4LNC 05/08 resolved Tobacco use 05/01/2024 Screen Handler for smoking 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 Complicates all [...] troponins of 0.05 to 0.23 to 0.16 [facility] reveal mvCAD - S/p CABG x4 with [...] in IR 06/04 Follow cultures Cardiothoracic Surgery [id number] * Progress Notes - Keisha Sabillon - 06/05/2024 10:27 AM EDT Occupational Therapy Treatment Patient Name: Rere Hunter Today's Date: 06/05/2024 OT Discharge Recommendations: LTACH Equipment Recommended: Defer to facility Subjective Pt agreeable to participate in OT session. Participants in Care Family/Caregiver Present: No Family/Caregiver: Adult Son Acquisition Associate: Not Applicable Presentation Oxygen Therapy: None (Room [...] Mobility Bed Mobility Exam: Scooting/Bridging Level of [place]: Maximum assist (25% patient's effort) (Seated scooting hips towards EOB withuse of draw sheet.) Physical/Nonphysical Assist: Verbal Cues, Nonverbal cues (demo/gestures) Assistive Device: Other (draw sheet) Bed Mobility Exam: Supine to Sit Level of [place]: Moderate assist (50% patient's effort) (For trunk upright.) Physical/Nonphysical Assist: Verbal Cues, Nonverbal cues (demo/gestures), Additional assist utilized for safety Assistive Device: Other (draw sheet) Bed Mobility Exam: Sit to Supine Level of [place]: Minimum assist (75% patient's effort) Physical/Nonphysical Assist: Nonverbal cues (demo/gestures), Verbal Cues, Additional assist utilized for safety Transfers Transfer Exam: Sit to stand Level of [place]: Contact guard Physical/Nonphysical Assist: Verbal Cues, Set-up required, 1 person + 1 person to manage equipment Assistive Device: Rollator Transfer Exam: Stand to Sit Level of [place]: Contact guard Physical/Nonphysical Assist: Verbal Cues, 1 person + 1 person to manage equipment, Set-up required Assistive Device: Rollator Toilet Transfer Level of [place]: Minimum assist (75% patient's effort) Physical/Nonphysical Assist: [...] Mobility Bed Mobility Exam: Scooting/Bridging Level of [place]: Maximum assist (25% patient's effort) Physical/Nonphysical Assist: Verbal Cues, Set-up required, Additional assist utilized for safety Assistive Device: Other (draw sheet to scoot to EOB) Bed Mobility Exam: Supine to Sit Level of [place]: Maximum assist (25% patient's effort) Physical/Nonphysical Assist: Verbal Cues, Set-up required, Additional assist utilized for safety Bed Mobility Exam: Sit to Supine Level of [place]: Minimum assist (75% patient's effort) Physical/Nonphysical Assist: Nonverbal cues (demo/gestures), Verbal Cues, Additional assist utilized for safety Transfers Transfer Exam: Sit to stand Level of [place]: Contact guard Physical/Nonphysical Assist: Verbal Cues, Set-up required, 1 person + 1 person to manage equipment Assistive Device: Rollator Transfer Exam: Stand to Sit Level of [place]: Contact guard Physical/Nonphysical Assist: Verbal Cues, 1 [...] Value Units Date/Time Blood Culture (Aerobic/Anaerobet Set) [[id number]] Collected: 05/23/24 1020 Order Status: Completed Specimen: Blood, Venous Updated: 05/24/24 1101 Culture No growth at day 1 Fungal Blood Culture [[id number]] Collected: 05/17/241812 Order Status: Completed Specimen: Blood, Venous Updated: 05/24/2438 Culture No Fungal Growth at 1 Week AFB Blood Culture [[id number]] Collected: 05/17/241812 Order Status: Completed Specimen: Blood, Venous Updated: 05/24/24637 AFB Culture No Mycobacterial Growth at 1 Week Vitals: Visit Vitals BP 105/65 (BP Location: Right arm, Patient Position: Lying) Pulse 84 Temp 36.9 ??C (98.5 ??F) (Oral) Resp 17 Babcock Coma Scale Score: 15 Shaan Scale Score: [...] Weight: 61.1 kg (134 lb 12.8 oz) [place] body weight: 47.8 kg (105 lb 4.8 oz) Adjusted ideal body weight: 52.8 kg (116 lb 5.7 oz) (126.25%) of IBW Body mass index is 25.13 kg/m??. Adjusted wt: 50.9 kg (if over 125% of IBW) CENTRAL IV Access: PICC (05/18/24) Estimated Nutritional Needs: HBE: 1153 Stress Factor: 1.2-1.4 Total Calories/day: 1035-0040 Protein (amino acids): 1.3-1.6 grams/kg Protein (Amino [...] room. Thank you! Marysol Hurtado, PharmD PGY1 Fluid Power Mechanic Available via secure chat [1] Patient Active Problem List Diagnosis Anxiety and depression COPD (chronic obstructive pulmonary disease) ([facility]) CAD, multiple vessel NSTEMI (non-ST elevated myocardial infarction) ([facility]) GERD (gastroesophageal reflux disease) Leukocytosis Hyperlipidemia THOM (obstructive sleep apnea) S/P CABG x 4 Hypertension Cardiac volume overload Hypoglycemia Nausea with vomiting Acute blood loss anemia (ABLA) Gastric perforation ([facility]) On total parenteral nutrition (TPN) Ileus ([facility]) Electrolyte abnormality Colon perforation ([facility]) Post-op pain Delirium [2] Past Medical History: Diagnosis Date Anxiety COPD (chronic obstructive pulmonary disease) ([facility]) 05/01/2024 Continue Duo nebs q6 SPO2 goal >88% Depression GERD (gastroesophageal reflux disease) 05/01/2024 Continue Protonix 40 mg daily Hyperkalemia 05/06/2024 Now resolved, pt with hypokalemia requiring replacement On mechanically assisted ventilation ([facility]) 05/06/2024 Arrived to ICU intubated 05/07 extubated to 4LNC 05/08 resolved Tobacco use 05/01/2024 Screen Handler for smoking 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 Complicates all [...] extended L colectomy and end colostomy creation ([facility]) 06/04: IR-guided drain Interval: VSS. L abdominal [...] Addendum 05/23/2024 8:43 AM by Marybel Suarez, ADMISSIONS SUPERVISOR Continue home bupropion XL 300 mg daily Continue home citalopram 40 mg daily Continue PRN hydroxyzine 25 mg q6 COPD (chronic obstructive pulmonary disease) ([facility]) Yes Overview Addendum 05/23/2024 8:43 AM by Marybel Suarez, ADMISSIONS SUPERVISOR Duo nebs q6 Wean O2 for SPO2 goal >88% NSTEMI (non-ST elevated myocardial infarction) ([facility]) Yes Overview Addendum 05/22/2024 11:00 AM by Jose Aburto MD Diagnosed at OSH with elevated troponins of 0.05 to 0.23 to 0.16 Started on heparin drip DEPARTMENT SUPERVISOR, 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 Repeat troponins pending 05/07 [...] Addendum 05/23/2024 8:50 AM by Marybel Suarez, ADMISSIONS SUPERVISOR Remains febrile with elevated EBC Cultures ordered and pending Hyperlipidemia Yes Overview Signed 05/23/2024 8:47 AM by Marybel Suarez, ADMISSIONS SUPERVISOR Restart statin when no longer NPO THOM (obstructive sleep apnea) Yes Overview Addendum 05/23/2024 8:45 AM by Marybel Suarez, ADMISSIONS SUPERVISOR Refusing home CPAP remains on NC S/P CABG x 4 Not Applicable Overview Addendum 05/23/2024 8:45 AM by Marybel Suarez, ADMISSIONS SUPERVISOR 05/06 4vCABG w/ Dr. Austin Aspirin, statin, beta stacey as clinically appropriate Hypertension Yes Overview Addendum 05/23/2024 8:47 AM by Marybel Suarez, ADMISSIONS SUPERVISOR Metop IV while NPO Restart PO metop when appropriate Cardiac volume overload No Overview Addendum 05/18/2024 10:24 AM by Sidney Jackson MD Diuresis as clinically indicated Hypoglycemia No Overview Addendum 05/23/2024 8:46 AM by Marybel Suarez, ADMISSIONS SUPERVISOR Resolved once TPN started Nausea with vomiting No Overview Addendum 05/28/2024 8:26 AM by Sidney Jackson MD TPN running Advance PO diet as able Acute blood loss anemia (ABLA) No Overview Addendum 05/23/2024 8:43 AM by Marybel Suarez, ADMISSIONS SUPERVISOR Lab Results Component Value Date HGB 9.0 [...] Signed 05/23/2024 8:50 AM by Marybel Suarez, ADMISSIONS SUPERVISOR - monitor and replace prn Post-op pain [...] Assessment Intact (slight PTSL from drape) Closure Central (few sheridan in center) Drainage Description Sanguineous;Serosanguineous [...] prior to follow up. Lester Lazo RN [facility] 06/04/2024 4:06 PM * Progress Notes [...] 1601 Stomal Appliance 2 piece;Flat Barrier/Pouch;Flat Ring;Barrier [place]/Wipe 06/04/24 1601 Site Assessment Intact;Moist;Raised;Red 06/04/24 1601 [...] supplement intake for the active dates in [facility] under the I/O-Calorie Count section in the [...] troponins of 0.05 to 0.23 to 0.16 [facility] reveal mvCAD - S/p CABG x4 with [...] placement in IR Follow cultures Cardiothoracic Surgery [phone] * Consults - Gretchen Brothers RD - 06/04/2024 11:18 AM EDT Adult Nutrition Evaluation Note Rere Hunter 53 y.o. female CSN: [id number] Room/Bed 117/117A Nutrition evaluation type: follow-up Reason [...] O2 Delivery Method: Nasal cannula with capnography Babcock Coma Scale Score: 15 Shaan Scale Score: [...] (Calculated): 22.71 Weight Evaluation: Overweight (BMI 25-29.9) [place] Body Weight (kg): 47.7 Percent [place] Body Weight: 114 Adjusted Body Weight (kg): 50.9 Wt Readings from Last 10 Encounters: 06/04/24 54.5 kg (120 lb 2.4 oz) 06/28/23 59 kg (130 lb) 04/26/23 62.6 kg (138 lb) 01/18/23 61.7 kg (136 lb) Estimated Needs: Kcal/ K-35 Kcal Provided: 7738-3386 Kcal Needs Based On: Current weight Gm Protein/ Kg : 1.5-2 Protein Provided: 81-109 Protein Needs Based On: Current weight Metabolic Cart Study Results: Current Nutrition Intake: Diet Supplements: Roque Packet, Boost Very High Calorie Diet Order: NPO Diet Texture: Regular Adult Carbohydrate Restriction: Consistent CHO 2 (5591-5915 [place], 80 g/meal) Fat Restriction: Cardiac Other [...] Provided: Will monitor Pertinent home medications: reviewed Jewish needs: Nutrition Focused Physical Exam: Physical exam [...] Date Anxiety COPD (chronic obstructive pulmonary disease) ([facility]) 05/01/2024 Continue Duo nebs q6 SPO2 goal >88% Depression GERD (gastroesophageal reflux disease) 05/01/2024 Continue Protonix 40 mg daily Hyperkalemia 05/06/2024 Now resolved, pt with hypokalemia requiring replacement On mechanically assisted ventilation ([facility]) 05/06/2024 Arrived to ICU intubated 05/07 extubated to [facility] 05/08 resolved Tobacco use 05/01/2024 Screen Handler for smoking 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 Complicates all [...] Value Units Date/Time Blood Culture (Aerobic/Anaerobet Set) [[id number]] Collected: 05/23/24 1020 Order Status: Completed Specimen: Blood, Venous Updated: 05/24/24 1101 Culture No growth at day 1 Fungal Blood Culture [[id number]] Collected: 05/17/241812 Order Status: Completed Specimen: Blood, Venous Updated: 05/24/24 0638 Culture No Fungal Growth at 1 Week AFB Blood Culture [[id number]] Collected: 05/17/241812 Order Status: Completed Specimen: Blood, Venous Updated: 05/24/24637 AFB Culture No Mycobacterial Growth at 1 Week Vitals: Visit Vitals BP 111/71 Pulse 81 Temp 36.8 ??C (98.3 ??F) (Oral) Resp 22 Babcock Coma Scale Score: 15 Shaan Scale Score: [...] of Roque Fruit Punch Packet One 05/29/24 7424 Current Medications acetaminophen, 500 mg, Oral, q6h [...] Weight: 61.1 kg (134 lb 12.8 oz) [place] body weight: 47.8 kg (105 lb 4.8 oz) Adjusted ideal body weight: 52.8 kg (116 lb 5.7 oz) (126.25%) of IBW Body mass index is 25.13 kg/m??. Adjusted wt: 50.9 kg (if over 125% of IBW) CENTRAL IV Access: PICC (05/18/24) Estimated Nutritional Needs: HBE: 1153 Stress Factor: 1.2-1.4 Total Calories/day: 6623-0080 Protein (amino acids): 1.3-1.6 grams/kg Protein (Amino [...] and depression COPD (chronic obstructive pulmonary disease) ([facility]) CAD, multiple vessel NSTEMI (non-ST elevated myocardial infarction) ([facility]) GERD (gastroesophageal reflux disease) Leukocytosis Hyperlipidemia THOM (obstructive sleep apnea) S/P CABG x 4 Hypertension Cardiac volume overload Hypoglycemia Nausea with vomiting Acute blood loss anemia (ABLA) Gastric perforation ([facility]) On total parenteral nutrition (TPN) Ileus ([facility]) Electrolyte abnormality Colon perforation ([facility]) Post-op pain Delirium [2] Past Medical History: Diagnosis Date Anxiety COPD (chronic obstructive pulmonary disease) ([facility]/HCC) 05/01/2024 Continue Duo nebs q6 SPO2 goal >88% Depression GERD (gastroesophageal reflux disease) 05/01/2024 Continue Protonix 40 mg daily Hyperkalemia 05/06/2024 Now resolved, pt with hypokalemia requiring replacement On mechanically assisted ventilation (CMS/HCC) 05/06/2024 Arrived to ICU intubated 05/07 extubated to 4LNC 05/08 resolved Tobacco use 05/01/2024 Screen Handler for smoking 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 Complicates all [...] from the original note were not included. [id number] Taking Care of Your Flushable Drain Tube [...] right away. [facility]iology [facility], 1st floor [address], [address] [place] [address] Caring for your drain tube [...] and warm water or an alcohol-based hand metal cleaner ?? Disposable medical gloves - (optional) [...] ?? Wipe the skin gently in a standing rock, moving away from the drain tube in [...] and warm water or an alcohol-based hand metal cleaner ?? Disposable medical gloves - (Optional) [...] hands with soap and water or hand metal cleaner. They can also put on a [...] syringe to the needleless port with a [id number]-gja-[id number] motion. 6. Flush the tube: Push on [...] original bottles. [facility], [address]st [address], [address] [place] [address] * Nursing Note - Arsh Mueller RN [...] not available in floor stock, contact Materials [phone]. *Saline flushes can be supplied via [facility] to Beds. About the accordion drainage system [...] the drain. Contact the [facility] Clinic at [phone], or discuss at your next follow-up visit. [...] the drain system dry. Follow up with [facility] at [phone] for appointments or questions. Follow the [id number] directions in the Flushable Drain Care handout. [...] Follow up and other appointments with the [facility] First follow-up visit. We will call you to schedule a follow-up visit with the [facility]ascular [facility] Inter[facility] Radiology Clinic. You should be seen in our clinic within 2 weeks after leaving the hospital. If you have not been contacted to schedule this appointment, please contact the [facility] at [phone]. To schedule or reschedule a clinic visit, call [phone]. To reschedule a procedure, call our schedulers at [phone], option 4. [facility] location and phone number [facility], 1st floor [address], [address] [place] [address] In case of emergency For any emergency, please go to the nearest Emergency Room or dial 911. If you have questions or concerns about the drain Tuesday-Tuesday, 8 a.m.-4:30 p.m., call the [facility] at [phone]. After hours, weekends, and holidays, call [phone]. Ask for the Interventional Radiology provider architectural sales consultant. Drainage Log You must keep a daily [...] Radiology Brief Postprocedure Note Attending: Dr. Elmore Technical Supervisor: None Pre-operative Diagnosis: Perisplenic fluid collection Post-operative [...] been discussed with the patient and/or their farm loan representative. All questions answered and they agree [...] of Anxiety, COPD (chronic obstructive pulmonary disease) ([facility]) (05/01/2024), Depression, GERD (gastroesophageal reflux disease) (05/01/2024), Hyperkalemia (05/06/2024), On mechanically assisted ventilation ([facility]) (05/06/2024), Tobacco use (05/01/2024), and Tremor (05/01/2024). [...] tablet 500 mg 500 mg Oral q6h [facility] Radha Dickerson, DO 500 mg at Adult [...] MD 120 mg at 250 sodium chloride (Chelan) 0.65 % nasal spray 1 spray 1 [...] Note Rere Hunter 53 y.o. female CSN: [id number] Admission: 05/01/2024 11:01 PM Primary Problem: CAD, [...] mg q6 COPD (chronic obstructive pulmonary disease) ([facility]) Yes Overview Addendum 05/23/2024 8:43 AM by Marybel Suarez APRN Duo nebs q6 Wean O2 for SPO2 goal >88% NSTEMI (non-ST elevated myocardial infarction) ([facility]) Yes Overview Addendum 05/22/2024 11:00 AM by Jose Aburto MD Diagnosed at OSH with elevated troponins of 0.05 to 0.23 to 0.16 Started on heparin drip DEPARTMENT SUPERVISOR, 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 Repeat troponins pending 05/07 [...] Signed 05/23/2024 8:47 AM by Marybel Suarez, ADMISSIONS SUPERVISOR Restart statin when no longer NPO THOM (obstructive sleep apnea) Yes Overview Addendum 05/23/2024 8:45 AM by Marybel Suarez, ADMISSIONS SUPERVISOR Refusing home CPAP remains on NC S/P CABG x 4 Not Applicable Overview Addendum 05/23/2024 8:45 AM by Marybel Suarez, ADMISSIONS SUPERVISOR 05/06 4vCABG w/ Dr. Austin Aspirin, statin, beta stacey as clinically appropriate Hypertension Yes Overview Addendum 05/23/2024 8:47 AM by Marybel Suarez, ADMISSIONS SUPERVISOR Metop IV while NPO Restart PO metop when appropriate Cardiac volume overload No Overview Addendum 05/18/2024 10:24 AM by Sidney Jackson MD Diuresis as clinically indicated Hypoglycemia No Overview Addendum 05/23/2024 8:46 AM by Marybel Suarez, ADMISSIONS SUPERVISOR Resolved once TPN started Nausea with vomiting No Overview Addendum 05/28/2024 8:26 AM by Sidney Jackson MD TPN running Advance PO diet as able Acute blood loss anemia (ABLA) No Overview Addendum 05/23/2024 8:43 AM by Marybel Suarez, ADMISSIONS SUPERVISOR Lab Results Component Value Date HGB 9.0 [...] 06/11/2024 3:44 PM EDT Associated attestation - Gracieal Nelson MD - 06/11/2024 3:44 PM EDT [...] for IR abscess drainage tomorrow Cardiothoracic Surgery [phone] * Progress Notes - Uriah Sherman, PharmD [...] Value Units Date/Time Blood Culture (Aerobic/Anaerobet Set) [[id number]] Collected: 05/23/24 1020 Order Status: Completed Specimen: Blood, Venous Updated: 05/24/24 1101 Culture No growth at day 1 Fungal Blood Culture [[id number]] Collected: 05/17/241812 Order Status: Completed Specimen: Blood, Venous Updated: 05/24/24 0638 Culture No Fungal Growth at 1 Week AFB Blood Culture [[id number]] Collected: 05/17/241812 Order Status: Completed Specimen: Blood, [...] wound vac (black foam), L SVG site (DATA WAREHOUSING MANAGER and glued)) Edema: Generalized Wt Readings from [...] Weight: 61.1 kg (134 lb 12.8 oz) [place] body weight: 47.8 kg (105 lb 4.8 oz) Adjusted ideal body weight: 52.8 kg (116 lb 5.7 oz) (126.25%) of IBW Body mass index is 25.13 kg/m??. Adjusted wt: 50.9 kg (if over 125% of IBW) CENTRAL IV Access: PICC (05/18/24) Estimated Nutritional Needs: HBE: 1153 Stress Factor: 1.2-1.4 Total Calories/day: 7797-2934 Protein (amino acids): 1.3-1.6 grams/kg Protein (Amino [...] Arrived to ICU intubated 05/07 extubated to [facility] 05/08 resolved Tobacco use 05/01/2024 Screen Handler for smoking 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 Complicates all [...] * Progress Notes - Arvin Shola M, ADMISSIONS SUPERVISOR - 06/02/2024 1:39 PM EDT CVT Progress [...] troponins of 0.05 to 0.23 to 0.16 [facility] reveal mvCAD - S/p CABG x4 with [...] for IR procedure on Tuesday Cardiothoracic Surgery [phone] * Consults - Lorena Phillips APRN - [...] Date Anxiety COPD (chronic obstructive pulmonary disease) ([facility]) 05/01/2024 Continue Duo nebs q6 SPO2 goal >88% Depression GERD (gastroesophageal reflux disease) 05/01/2024 Continue Protonix 40 mg daily Hyperkalemia 05/06/2024 Now resolved, pt with hypokalemia requiring replacement On mechanically assisted ventilation ([facility]) 05/06/2024 Arrived to ICU intubated 05/07 extubated to [facility] 05/08 resolved Tobacco use 05/01/2024 Screen Handler for smoking 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 Complicates all [...] is no recent study available for direct [id number]-zf-[id number] comparison. Assessment & Plan: Perisplenic fluid collection [...] the care of this patient. Lorena Phillips, ADMISSIONS SUPERVISOR Interventional Radiology [phone] [1] Past Surgical History: Procedure Laterality Date [...] mg, Oral, 4x daily PRN, Shola Sheridan ADMISSIONS SUPERVISOR,500 mg at 05/31/24 1054 citalopram (CeleXA) tablet 40 mg, 40 mg, Oral, Daily, Radha Dickerson DO, 40 mg at 06/02/24 0824 fat emulsion fish/plant based (SMOFlipid) 20 % IV infusion 250 mL, 250 mL, Intravenous, Every otherday, Maite Austin MD, Last Rate: 20.8 mL/hr at 06/01/24 0853, 250 mL at 06/01/24 0853 heparin (porcine) injection 5,000 Units, 5,000 Units, Subcutaneous, q8h, uSndeep Newsome MD, 5,000 Units at 06/02/24 0709 [...] 3 mL, Nebulization, q6h PRN, Trinity Yousif, ADMISSIONS SUPERVISOR, 3 mL at 05/17/24 1551 lidocaine (Lidoderm) [...] mg, 40 mg, Oral, Daily, Shola Sheridan, ADMISSIONS SUPERVISOR, 40 mg at 06/02/24823 phenol (Chloraseptic) 1.4 [...] MD, 120 mg at 05/31/242022 sodium chloride (Chelan) 0.65 % nasal spray 1 spray, 1 [...] Value Units Date/Time Blood Culture (Aerobic/Anaerobet Set) [[id number]] Collected: 05/23/24 1020 Order Status: Completed Specimen: Blood, Venous Updated: 05/24/24 1101 Culture No growth at day 1 Fungal Blood Culture [[id number]] Collected: 05/17/241812 Order Status: Completed Specimen: Blood, Venous Updated: 05/24/24 0638 Culture No Fungal Growth at 1 Week AFB Blood Culture [[id number]] Collected: 05/17/241812 Order Status: Completed Specimen: Blood, Venous Updated: 05/24/24 0638 AFB Culture No Mycobacterial Growth at 1 Week Vitals: Visit Vitals BP 119/75 (BP Location: Right arm, Patient Position: Lying) Pulse 94 Temp 36.7 ??C (98 ??F) (Oral) Resp 24 Babcock Coma Scale Score: 15 Shaan Scale Score: [...] Weight: 61.1 kg (134 lb 12.8 oz) [place] body weight: 47.8 kg (105 lb 4.8 oz) Adjusted ideal body weight: 52.8 kg (116 lb 5.7 oz) (126.25%) of IBW Body mass index is 25.13 kg/m??. Adjusted wt: 50.9 kg (if over 125% of IBW) CENTRAL IV Access: PICC (05/18/24) Estimated Nutritional Needs: HBE: 1153 Stress Factor: 1.2-1.4 Total Calories/day: 7104-6486 Protein (amino acids): 1.3-1.6 grams/kg Protein (Amino [...] and depression COPD (chronic obstructive pulmonary disease) ([facility]) CAD, multiple vessel NSTEMI (non-ST elevated myocardial infarction) ([facility]) GERD (gastroesophageal reflux disease) Leukocytosis Hyperlipidemia THOM (obstructive sleep apnea) S/P CABG x 4 Hypertension Cardiac volume overload Hypoglycemia Nausea with vomiting Acute blood loss anemia (ABLA) Gastric perforation ([facility]/HCC) On total parenteral nutrition (TPN) Ileus ([facility]) Electrolyte abnormality Colon perforation ([facility]) Post-op pain Delirium [2] Past Medical History: Diagnosis Date Anxiety COPD (chronic obstructive pulmonary disease) ([facility]) 05/01/2024 Continue Duo nebs q6 SPO2 goal >88% Depression GERD (gastroesophageal reflux disease) 05/01/2024 Continue Protonix 40 mg daily Hyperkalemia 05/06/2024 Now resolved, pt with hypokalemia requiring replacement On mechanically assisted ventilation ([facility]) 05/06/2024 Arrived to ICU intubated 05/07 extubated to 4LNC 05/08 resolved Tobacco use 05/01/2024 Screen Handler for smoking 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 Complicates all [...] does not seem to beworking properly. 1. Mechanical Process Engineer the tube near the skin and hold [...] from the original note were not included. 55431 Preventing a Surgical Site Infection A risk [...] of infection. ?? Controlled body temperature. A luqdq-osdi-gjtokx temperature during or after surgery prevents oxygen [...] and water or with an alcohol-based hand resourcing consultant before and after caring for you. Don?t [...] away. Last Reviewed Date: 2024 00:00:00 ?? 0890-3533 [employer]. All rights reserved. This information is not intended as a substitute for professional medical care. Always follow your healthcare professional's instructions. * [facility] - Leola Montano RN - 06/01/2024 12:56 PM EDT Images from the original note were not included. 63573 Incision Care Reminder Keep all your follow-up [...] opens ?? Stitches that pull apart ?? Central that fall out ?? Surgical tape that falls off before 7 days Last Reviewed Date: 2023 00:00:00 ?? 6453-8383 [employer]. All rights reserved. This information is not [...] weekends. Last Reviewed Date: 2023 00:00:00 ?? 9530-5759 [employer]. All rights reserved. This information is not intended as a substitute for professional medical care. Always follow your healthcare professional's instructions. * Can OnIR - Leola Montano RN - 06/01/2024 12:56 PM EDT Images from the original note were not included. [id number] What You Should Know About Colectomy Being [...] medicines you take. That includes prescription and vpgq-cha-romxmpg medicines, vitamins, herbs, supplements, marijuana, and street [...] pocket Last Reviewed Date: 2023 00:00:00 ?? 6726-1960 [employer]. All rights reserved. This information is not intended as a substitute for professional medical care. Always follow your healthcare professional's instructions. * Can On[facility] - Leola Montano RN - 06/01/2024 12:56 PM EDT Images from the original note were not included. 28992 Exploratory Laparotomy Exploratory laparotomy is surgery to [...] about any medicines you?re taking. This includes wtsa-rfc-mebrfueosommrfpa, prescription medicines, herbs, illegal drugs, vitamins, and [...] anesthesia. Last Reviewed Date: 2024 00:00:00 ?? 6614-2642 [employer]. All rights reserved. This information is not intended as a substitute for professional medical care. Always follow your healthcare professional's instructions. * Can On[facility]IR - Leola Montano RN - 06/01/2024 12:52 PM EDT Images from the original note were not included. [id number] Open Bowel Resection: What to Expect at [...] litter or dog food bags, a vacuum metal cleaner, or a child. ?? Ask your [...] your doctor if you can take an qcjl-vdu-crbtvvo medicine. o Do not take two or [...] this instruction, always ask your healthcare professional. [employer] disclaims any warranty or liability for your use of this information. ?? [id number] [employer], [employer]. * Can OnIR - Leola Montano RN - 06/01/2024 12:52 PM EDT Images from the original note were not included. 49041 Colorectal Surgery: Recovering in the Hospital and [...] site. Last Reviewed Date: 2024 00:00:00 ?? 8872-4672 [employer]. All rights reserved. This information is not intended as a substitute for professional medical care. Always follow your healthcare professional's instructions. * Can Alex - Leola Montano RN - 06/01/2024 12:52 PM EDT Images from the original note were not included. 78262 Understanding Intestinal Obstruction The small and large [...] symptoms Last Reviewed Date: 2021 00:00:00 ?? 5975-9891 [employer]. All rights reserved. This information is not [...] Value Units Date/Time Blood Culture (Aerobic/Anaerobet Set) [[id number]] Collected: 05/23/24 1020 Order Status: Completed Specimen: Blood, Venous Updated: 05/24/24 1101 Culture No growth at day 1 Fungal Blood Culture [[id number]] Collected: 05/17/241812 Order Status: Completed Specimen: Blood, Venous Updated: 05/24/24 0638 Culture No Fungal Growth at 1 Week AFB Blood Culture [[id number]] Collected: 05/17/241812 Order Status: Completed Specimen: Blood, Venous Updated: 05/24/24 0638 AFB Culture No Mycobacterial Growth at 1 Week Vitals: Visit Vitals BP 133/85 Pulse 94 Temp 36.6 ??C (97.8 ??F) (Oral) Resp 19 Jaida Coma Scale Score: 15 Shaan Scale Score: 18 Oxygen Therapy: None (Room air) Skin Integrity: Bruising (Thornton (DATA WAREHOUSING MANAGER, glued), right colostomy, s/p chest tube sites, mid-abdominal wound vac (black foam), L SVG site (DATA WAREHOUSING MANAGER and glued)) Edema: Generalized Wt Readings from [...] Weight: 61.1 kg (134 lb 12.8 oz) [place] body weight: 47.8 kg (105 lb 4.8 oz) Adjusted ideal body weight: 52.8 kg (116 lb 5.7 oz) (126.25%) of IBW Body mass index is 25.13 kg/m??. Adjusted wt: 50.9 kg (if over 125% of IBW) CENTRAL IV Access: PICC (05/18/24) Estimated Nutritional Needs: HBE: 1153 Stress Factor: 1.2-1.4 Total Calories/day: 5792-9497 Protein (amino acids): 1.3-1.6 grams/kg Protein (Amino [...] and depression COPD (chronic obstructive pulmonary disease) ([facility]) CAD, multiple vessel NSTEMI (non-ST elevated myocardial infarction) ([facility]) GERD (gastroesophageal reflux disease) Leukocytosis Hyperlipidemia THOM (obstructive sleep apnea) S/P CABG x 4 Hypertension Cardiac volume overload Hypoglycemia Nausea with vomiting Acute blood loss anemia (ABLA) Gastric perforation (CMS/HCC) On total parenteral nutrition (TPN) Ileus ([facility]/HCC) Electrolyte abnormality Colon perforation ([facility]/HCC) Post-op pain Delirium [2] Past Medical History: Diagnosis Date Anxiety COPD (chronic obstructive pulmonary disease) (CMS/HCC) 05/01/2024 Continue Duo nebs q6 SPO2 goal >88% Depression GERD (gastroesophageal reflux disease) 05/01/2024 Continue Protonix 40 mg daily Hyperkalemia 05/06/2024 Now resolved, pt with hypokalemia requiring replacement On mechanically assisted ventilation (CMS/HCC) 05/06/2024 Arrived to ICU intubated 05/07 extubated to 4LNC 05/08 resolved Tobacco use 05/01/2024 Screen Handler for smoking 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 Complicates all [...] I have assessed the patient with the director pharmacy services and agree with the plan as ordered and documented. Micheal Sherman, Del[facility]ine Trauma/Emergency General Surgery * Consults - Gretchen Brothers, RD - 05/31/2024 3:38 PM EDT Adult Nutrition Evaluation Note Rere Hunter 53 y.o. female CSN: [id number] Room/Bed 117/117A Nutrition evaluation type: follow-up Reason [...] (Room air) O2 Delivery Method: Nasal cannula Babcock Coma Scale Score: 15 Shaan Scale Score: [...] (Calculated): 23.09 Weight Evaluation: Overweight (BMI 25-29.9) [place] Body Weight (kg): 47.7 Percent [place] Body Weight: 116 Adjusted Body Weight (kg): 50.9 Wt Readings from Last 10 Encounters: 05/31/24 55.4 kg (122 lb 2.2 oz) 06/28/23 59 kg (130 lb) 04/26/23 62.6 kg (138 lb) 01/18/23 61.7 kg (136 lb) Estimated Needs: Kcal/ K-35 Kcal Provided: 3085-0559 Kcal Needs Based On: Adjusted weight Gm Protein/ Kg : 1.5 Protein Provided: 76 Protein Needs Based On: Adjusted weight Metabolic Cart Study Results: Current Nutrition Intake: Diet Order: Adult Diet Diet Texture: Regular Adult Carbohydrate Restriction: Consistent CHO 2 (1966-7505 Channing, 80 g/meal) Fat Restriction: Cardiac Other [...] Provided: Will monitor Pertinent home medications: reviewed Jewish needs: Nutrition Focused Physical Exam: Physical exam [...] Date Anxiety COPD (chronic obstructive pulmonary disease) ([facility]) 05/01/2024 Continue Duo nebs q6 SPO2 goal >88% Depression GERD (gastroesophageal reflux disease) 05/01/2024 Continue Protonix 40 mg daily Hyperkalemia 05/06/2024 Now resolved, pt with hypokalemia requiring replacement On mechanically assisted ventilation ([facility]) 05/06/2024 Arrived to ICU intubated 05/07 [facility]ated to [facility] 05/08 resolved Tobacco use 05/01/2024 Screen Handler for smoking 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 Complicates all [...] night. Participants in Care Family/Caregiver Present: No Acquisition Associate: Not Applicable Presentation Oxygen Therapy: None (Room [...] Mobility Bed Mobility Exam: Scooting/Bridging Level of [place]: Maximum assist (25% patient's effort) (Seated scooting hips towards EOB withuse of draw sheet.) Physical/Nonphysical Assist: Verbal Cues, Nonverbal cues (demo/gestures) Bed Mobility Exam: Supine to Sit Level of [place]: Moderate assist (50% patient's effort) (For trunk [...] Transfer Exam: Sit to stand Level of [place]: Contact guard Physical/Nonphysical Assist: Verbal Cues, Nonverbal cues (demo/gestures), Set-up required, 1 person+ 1 person to manage equipment Assistive Device: Rollator Transfer Exam: Stand to Sit Level of [place]: Contact guard Physical/Nonphysical Assist: Verbal Cues, Nonverbal cues (demo/gestures), 1 person + 1 person to manage equipment, Set-up required Toilet Transfer Level of [place]: Minimum assist (75% patient's effort) Physical/Nonphysical Assist: [...] Care Family/Caregiver Present: No Family/Caregiver: Adult Son Acquisition Associate: Not Applicable Presentation Oxygen Therapy: None (Room [...] Mobility Bed Mobility Exam: Scooting/Bridging Level of [place]: Maximum assist (25% patient's effort) (Seated scooting hips towards EOB withuse of draw sheet.) Physical/Nonphysical Assist: Verbal Cues, Nonverbal cues (demo/gestures) Assistive Device: Other (draw sheet) Bed Mobility Exam: Supine to Sit Level of [place]: Moderate assist (50% patient's effort) (For trunk upright.) Physical/Nonphysical Assist: Verbal Cues, Nonverbal cues (demo/gestures), Additional assist utilized for safety Assistive Device: Other (draw sheet) Transfers Transfer Exam: Sit to stand Level of [place]: Contact guard Physical/Nonphysical Assist: Verbal Cues, Nonverbal cues (demo/gestures), Set-up required, 1 person+ 1 person to manage equipment Assistive Device: Rollator Transfer Exam: Stand to Sit Level of [place]: Contact guard Physical/Nonphysical Assist: Verbal Cues, Nonverbal cues (demo/gestures), 1 person + 1 person to manage equipment, Set-up required Assistive Device: Hand held assist Toilet Transfer Level of [place]: Minimum assist (75% patient's effort) Physical/Nonphysical Assist: [...] RD note 05/29 Kcal/ K-35 Kcal Provided: 7609-2835 Kcal Needs Based On: Adjusted weight Gm [...] Value Units Date/Time Blood Culture (Aerobic/Anaerobet Set) [[id number]] Collected: 05/23/24 1020 Order Status: Completed Specimen: Blood, Venous Updated: 05/24/24 1101 Culture No growth at day 1 Fungal Blood Culture [[id number]] Collected: 05/17/241812 Order Status: Completed Specimen: Blood, Venous Updated: 05/24/24 0638 Culture No Fungal Growth at 1 Week AFB Blood Culture [[id number]] Collected: 05/17/241812 Order Status: Completed Specimen: Blood, Venous Updated: 05/24/24637 AFB Culture No Mycobacterial Growth at 1 Week Vitals: Visit Vitals BP (!) 140/83 (BP Location: Right arm, Patient Position: Lying) Pulse 94 Temp 37 ??C (98.6 ??F) (Oral) Resp 21 Babcock Coma Scale Score: 15 Shaan Scale Score: [...] High Calorie - Vanilla One Dinner supplement: Orque Fruit Punch Quantity for Dinner of Roque [...] Weight: 61.1 kg (134 lb 12.8 oz) [place] body weight: 47.8 kg (105 lb 4.8 oz) Adjusted ideal body weight: 52.8 kg (116 lb 5.7 oz) (126.25%) of IBW Body mass index is 25.13 kg/m??. Adjusted wt: 50.9 kg (if over 125% of IBW) CENTRAL IV Access: PICC (05/18/24) Estimated Nutritional Needs: HBE: 1153 Stress Factor: 1.2-1.4 Total Calories/day: 1369-6661 Protein (amino acids): 1.3-1.6 grams/kg Protein (Amino [...] and depression COPD (chronic obstructive pulmonary disease) ([facility]) CAD, multiple vessel NSTEMI (non-ST elevated myocardial infarction) ([facility]) GERD (gastroesophageal reflux disease) Leukocytosis Hyperlipidemia THOM (obstructive sleep apnea) S/P CABG x 4 Hypertension Cardiac volume overload Hypoglycemia Nausea with vomiting Acute blood loss anemia (ABLA) Gastric perforation ([facility]) On total parenteral nutrition (TPN) Ileus ([facility]) Electrolyte abnormality Colon perforation ([facility]) Post-op pain Delirium [2] Past Medical History: Diagnosis Date Anxiety COPD (chronic obstructive pulmonary disease) ([facility]) 05/01/2024 Continue Duo nebs q6 SPO2 goal >88% Depression GERD (gastroesophageal reflux disease) 05/01/2024 Continue Protonix 40 mg daily Hyperkalemia 05/06/2024 Now resolved, pt with hypokalemia requiring replacement On mechanically assisted ventilation ([facility]) 05/06/2024 Arrived to ICU intubated 05/07 extubated to 4LNC 05/08 resolved Tobacco use 05/01/2024 Screen Handler for smoking 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 Complicates all [...] Note Rere Hunter 53 y.o. female CSN: [id number] Admission: 05/01/2024 11:01 PM Primary Problem: CAD, [...] to expense. SW previously referred pt to [facility] and updated liaison Prema this AM re: pt's progress. Prema continuing to follow. No further SW concerns identified at this time. SW will monitor pt's progress and will follow up with DC planning and needs as appropriate. NAYA Albarran * Progress Notes - Shola Sheridan, ADMISSIONS SUPERVISOR - 05/31/2024 8:05 AM EDT CVT Progress [...] Drain care per blue surgery Cardiothoracic Surgery [id number] * Procedures - Iman Massey MD - [...] mg q6 COPD (chronic obstructive pulmonary disease) ([facility]) Yes Overview Addendum 05/23/2024 8:43 AM by Marybel Suarez APRN Duo nebs q6 Wean O2 for SPO2 goal >88% NSTEMI (non-ST elevated myocardial infarction) (CMS/HCC) Yes Overview Addendum 05/22/2024 11:00 AM by Jose Aburto MD Diagnosed at OSH with elevated troponins of 0.05 to 0.23 to 0.16 Started on heparin drip DEPARTMENT SUPERVISOR, 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 Repeat troponins pending 05/07 [...] Addendum 05/23/2024 8:50 AM by Marybel Suarez, ADMISSIONS SUPERVISOR Remains febrile with elevated EBC Cultures ordered and pending Hyperlipidemia Yes Overview Signed 05/23/2024 8:47 AM by Marybel Suarez, ADMISSIONS SUPERVISOR Restart statin when no longer NPO THMO (obstructive sleep apnea) Yes Overview Addendum 05/23/2024 8:45 AM by Marybel Suarez, ADMISSIONS SUPERVISOR Refusing home CPAP remains on NC S/P CABG x 4 Not Applicable Overview Addendum 05/23/2024 8:45 AM by Marybel Suarez, ADMISSIONS SUPERVISOR 05/06 4vCBUNNY w/ Dr. Austin Aspirin, statin, beta stacey as clinically appropriate Hypertension Yes Overview Addendum 05/23/2024 8:47 AM by Marybel Suarez, ADMISSIONS SUPERVISOR Metop IV while NPO Restart PO metop when appropriate Cardiac volume overload No Overview Addendum 05/18/2024 10:24 AM by Sidney Jackson MD Diuresis as clinically indicated Hypoglycemia No Overview Addendum 05/23/2024 8:46 AM by Marybel Suarez, ADMISSIONS SUPERVISOR Resolved once TPN started Nausea with vomiting No Overview Addendum 05/28/2024 8:26 AM by Sidney Jackson MD TPN running Advance PO diet as able Acute blood loss anemia (ABLA) No Overview Addendum 05/23/2024 8:43 AM by Marybel Suarez, ADMISSIONS SUPERVISOR Lab Results Component Value Date HGB 9.0 [...] Signed 05/23/2024 8:50 AM by Marybel Suarez, ADMISSIONS SUPERVISOR - monitor and replace prn Post-op pain [...] Value Units Date/Time Blood Culture (Aerobic/Anaerobet Set) [[id number]] Collected: 05/23/24 1020 Order Status: Completed Specimen: Blood, Venous Updated: 05/24/24 1101 Culture No growth at day 1 Fungal Blood Culture [[id number]] Collected: 05/17/241812 Order Status: Completed Specimen: Blood, Venous Updated: 05/24/24 0638 Culture No Fungal Growth at 1 Week AFB Blood Culture [[id number]] Collected: 05/17/241812 Order Status: Completed Specimen: Blood, [...] Weight: 61.1 kg (134 lb 12.8 oz) [place] body weight: 47.8 kg (105 lb 4.8 oz) Adjusted ideal body weight: 52.8 kg (116 lb 5.7 oz) (126.25%) of IBW Body mass index is 25.13 kg/m??. Adjusted wt: 50.9 kg (if over 125% of IBW) CENTRAL IV Access: PICC (05/18/24) Estimated Nutritional Needs: HBE: 1153 Stress Factor: 1.2-1.4 Total Calories/day: 3565-6567 Protein (amino acids): 1.3-1.6 grams/kg Protein (Amino [...] Date Anxiety COPD (chronic obstructive pulmonary disease) ([facility]/HCC) 05/01/2024 Continue Duo nebs q6 SPO2 goal >88% Depression GERD (gastroesophageal reflux disease) 05/01/2024 Continue Protonix 40 mg daily Hyperkalemia 05/06/2024 Now resolved, pt with hypokalemia requiring replacement On mechanically assisted ventilation ([facility]) 05/06/2024 Arrived to ICU intubated 05/07 extubated to 4C 05/08 resolved Tobacco use 05/01/2024 Screen Handler for smoking 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 Complicates all [...] mg q6 COPD (chronic obstructive pulmonary disease) ([facility]) Yes Overview Addendum 05/23/2024 8:43 AM by Marybel Suarez APRN Duo nebs q6 Wean O2 for SPO2 goal >88% NSTEMI (non-ST elevated myocardial infarction) ([facility]) Yes Overview Addendum 05/22/2024 11:00 AM by Jose Aburto MD Diagnosed at OSH with elevated troponins of 0.05 to 0.23 to 0.16 Started on heparin drip DEPARTMENT SUPERVISOR, 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 Repeat troponins pending 05/07 [...] Addendum 05/23/2024 8:50 AM by Marybel Suarez, ADMISSIONS SUPERVISOR Remains febrile with elevated EBC Cultures ordered and pending Hyperlipidemia Yes Overview Signed 05/23/2024 8:47 AM by Marybel Suarez, ADMISSIONS SUPERVISOR Restart statin when no longer NPO THOM (obstructive sleep apnea) Yes Overview Addendum 05/23/2024 8:45 AM by Marybel Suarez, ADMISSIONS SUPERVISOR Refusing home CPAP remains on NC S/P CABG x 4 Not Applicable Overview Addendum 05/23/2024 8:45 AM by Marybel Suarez, ADMISSIONS SUPERVISOR 05/06 4vCABG w/ Dr. Austin Aspirin, statin, beta stacey as clinically appropriate Hypertension Yes Overview Addendum 05/23/2024 8:47 AM by Marybel Suarez, ADMISSIONS SUPERVISOR Metop IV while NPO Restart PO metop when appropriate Cardiac volume overload No Overview Addendum 05/18/2024 10:24 AM by Sidney Jackson MD Diuresis as clinically indicated Hypoglycemia No Overview Addendum 05/23/2024 8:46 AM by Marybel Suarez, ADMISSIONS SUPERVISOR Resolved once TPN started Nausea with vomiting No Overview Addendum 05/28/2024 8:26 AM by Sidney Jackson MD TPN running Advance PO diet as able Acute blood loss anemia (ABLA) No Overview Addendum 05/23/2024 8:43 AM by Marybel Suarez, ADMISSIONS SUPERVISOR Lab Results Component Value Date HGB 9.0 [...] Signed 05/23/2024 8:50 AM by Marybel Suarez ADMISSIONS SUPERVISOR - monitor and replace prn Post-op pain [...] Note Rere Hunter 53 y.o. female CSN: [id number] Room/Bed 216/216A Nutrition evaluation type: follow-up Reason [...] (Calculated): 25.92 Weight Evaluation: Overweight (BMI 25-29.9) [place] Body Weight (kg): 47.7 Percent [place] Body Weight: 126 Adjusted Body Weight (kg): 50.9 Estimated Needs: Kcal/ K-35 Kcal Provided: 8843-8400 Kcal Needs Based On: Adjusted weight Gm Protein/ Kg : 1.5 Protein Provided: 76 Protein Needs Based On: Adjusted weight Metabolic Cart Study Results: Current Nutrition Intake: Diet Order: Adult Diet Diet Texture: Regular Adult Carbohydrate Restriction: Consistent CHO 2 (2625-7469 [place], 80 g/meal) Fat Restriction: Cardiac Percent Meals Eaten (%): Calorie count in progress HALF-RATE TPN: DEXTROSE: 15% (144 g/day CHO) AMINO ACIDS: 5% (48 g/day) Cl:A 1:3, K @ 30 mEq/L @ 40 ml/hr, with 30mg/day thiamine, MVI, and Trace elements Every other day 250ml 20% SMOF lipids Diet Experience and Nutrition History: Diet Education Provided: Will monitor Pertinent home medications: reviewed Jewish needs: Nutrition Focused Physical Exam: Physical exam [...] Date Anxiety COPD (chronic obstructive pulmonary disease) ([facility]) 05/01/2024 Continue Duo nebs q6 SPO2 goal >88% Depression GERD (gastroesophageal reflux disease) 05/01/2024 Continue Protonix 40 mg daily Hyperkalemia 05/06/2024 Now resolved, pt with hypokalemia requiring replacement On mechanically assisted ventilation ([facility]) 05/06/2024 Arrived to ICU intubated 05/07 extubated to 4C 05/08 resolved Tobacco use 05/01/2024 Screen Handler for smoking 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 Complicates all [...] Mobility Bed Mobility Exam: Scooting/Bridging Level of [place]: Maximum assist (25% patient's effort) Physical/Nonphysical Assist: Verbal Cues, Set-up required, Additional assist utilized for safety Assistive Device: Other (draw sheet to scoot to EOB) Bed Mobility Exam: Supine to Sit Level of [place]: Maximum assist (25% patient's effort) Physical/Nonphysical Assist: Verbal Cues, Set-up required, Additional assist utilized for safety Transfers Transfer Exam: Sit to stand Level of [place]: Minimum assist (75% patient's effort) Physical/Nonphysical Assist: Verbal Cues, Set-up required, 1 person + 1 person to manage equipment Assistive Device: Hand held assist Transfer Exam: Stand to Sit Level of [place]: Minimum assist (75% patient's effort) Physical/Nonphysical Assist: [...] as patient expressed desire to go to [facility]. Assessment Patient with no significant change in [...] Mobility Bed Mobility Exam: Scooting/Bridging Level of [place]: Maximum assist (25% patient's effort) Physical/Nonphysical Assist: Verbal Cues, Set-up required, Additional assist utilized for safety Assistive Device: Other (draw sheet) Bed Mobility Exam: Supine to Sit Level of [place]: Maximum assist (25% patient's effort) Physical/Nonphysical Assist: Verbal Cues, Set-up required, Additional assist utilized for safety Assistive Device: Other (draw sheet) Transfers Transfer Exam: Sit to stand Level of [place]: Minimum assist (75% patient's effort) Physical/Nonphysical Assist: Verbal Cues, Set-up required, 1 person + 1 person to manage equipment Assistive Device: Hand held assist Transfer Exam: Stand to Sit Level of [place]: Minimum assist (75% patient's effort) Physical/Nonphysical Assist: [...] Value Units Date/Time Blood Culture (Aerobic/Anaerobet Set) [[id number]] Collected: 05/23/24 1020 Order Status: Completed Specimen: Blood, Venous Updated: 05/24/24 1101 Culture No growth at day 1 Fungal Blood Culture [[id number]] Collected: 05/17/24 1813 Order Status: Completed Specimen: Blood, Venous Updated: 05/24/24 0638 Culture No Fungal Growth at 1 Week AFB Blood Culture [[id number]] Collected: 05/17/24 1813 Order Status: Completed Specimen: Blood, Venous Updated: 05/24/24637 AFB Culture No Mycobacterial Growth at 1 Week Vitals: Visit Vitals BP 128/77 Pulse 88 Temp 37.4 ??C (99.3 ??F) Resp 20 Babcock Coma Scale Score: 15 Shaan Scale Score: [...] Weight: 61.1 kg (134 lb 12.8 oz) [place] body weight: 47.8 kg (105 lb 4.8 oz) Adjusted ideal body weight: 52.8 kg (116 lb 5.7 oz) (126.25%) of IBW Body mass index is 25.13 kg/m??. Adjusted wt: 50.9 kg (if over 125% of IBW) CENTRAL IV Access: PICC (05/18/24) Estimated Nutritional Needs: HBE: 1153 Stress Factor: 1.2-1.4 Total Calories/day: 7134-8212 Protein (amino acids): 1.3-1.6 grams/kg Protein (Amino [...] and depression COPD (chronic obstructive pulmonary disease) ([facility]) CAD, multiple vessel NSTEMI (non-ST elevated myocardial infarction) ([facility]) GERD (gastroesophageal reflux disease) Leukocytosis Hyperlipidemia THOM (obstructive sleep apnea) S/P CABG x 4 Hypertension Cardiac volume overload Hypoglycemia Nausea with vomiting Acute blood loss anemia (ABLA) Gastric perforation (CMS/HCC) On total parenteral nutrition (TPN) Ileus ([facility]/HCC) Electrolyte abnormality Colon perforation (CMS/HCC) Post-op pain [...] to 4LNC 05/08 resolved Tobacco use 05/01/2024 Screen Handler for smoking 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 Complicates all [...] Addendum 05/23/2024 8:44 AM by Marybel Suarez, ADMISSIONS SUPERVISOR Patient presented to OSH on 05/01/24 c/o chest pain, LHC reveal mvCAD S/p CABG with Dr. Austin on 05/07 Anxiety and depression Yes Overview Addendum 05/23/2024 8:43 AM by Marybel Suarez, ADMISSIONS SUPERVISOR Continue home bupropion XL 300 mg daily Continue home citalopram 40 mg daily Continue PRN hydroxyzine 25 mg q6 COPD (chronic obstructive pulmonary disease) (CMS/HCC) Yes Overview Addendum 05/23/2024 8:43 AM by Marybel Suarez, ARASH Duo nebs q6 Wean O2 for SPO2 goal >88% NSTEMI (non-ST elevated myocardial infarction) ([facility]) Yes Overview Addendum 05/22/2024 11:00 AM by Jose Aburto MD Diagnosed at OSH with elevated troponins of 0.05 to 0.23 to 0.16 Started on heparin drip DEPARTMENT SUPERVISOR, 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 Repeat troponins pending 05/07 [...] Signed 05/23/2024 8:47 AM by Marybel Suarez, ADMISSIONS SUPERVISOR Restart statin when no longer NPO THOM (obstructive sleep apnea) Yes Overview Addendum 05/23/2024 8:45 AM by Marybel Suarez, ADMISSIONS SUPERVISOR Refusing home CPAP remains on NC S/P CABG x 4 Not Applicable Overview Addendum 05/23/2024 8:45 AM by Marybel Suarez, ADMISSIONS SUPERVISOR 05/06 4vCABG w/ Dr. Austin Aspirin, statin, beta stacey as clinically appropriate Hypertension Yes Overview Addendum 05/23/2024 8:47 AM by Marybel Suarez, ADMISSIONS SUPERVISOR Metop IV while NPO Restart PO metop [...] Addendum 05/23/2024 8:43 AM by Marybel Suarez, ADMISSIONS SUPERVISOR Lab Results Component Value Date HGB 9.0 [...] mg q6 COPD (chronic obstructive pulmonary disease) ([facility]) Yes Overview Addendum 05/23/2024 8:43 AM by Marybel Suarez APRN Duo nebs q6 Wean O2 for SPO2 goal >88% NSTEMI (non-ST elevated myocardial infarction) (CMS/HCC) Yes Overview Addendum 05/22/2024 11:00 AM by Jose Aburto MD Diagnosed at OSH with elevated troponins of 0.05 to 0.23 to 0.16 Started on heparin drip DEPARTMENT SUPERVISOR, 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 Repeat troponins pending 05/07 [...] Signed 05/23/2024 8:47 AM by Marybel Suarez, ADMISSIONS SUPERVISOR Restart statin when no longer NPO THOM (obstructive sleep apnea) Yes Overview Addendum 05/23/2024 8:45 AM by Marybel Suarez, ARASH Refusing home CPAP remains on NC S/P CABG x 4 Not Applicable Overview Addendum 05/23/2024 8:45 AM by Marybel Suarez APRN 05/06 4vCABG w/ Dr. Austin Aspirin, statin, beta stacey as clinically appropriate Hypertension Yes Overview Addendum 05/23/2024 8:47 AM by Marybel Suarez, ADMISSIONS SUPERVISOR Metop IV while NPO Restart PO metop when appropriate Cardiac volume overload No Overview Addendum 05/18/2024 10:24 AM by Sidney Jackson MD Diuresis as clinically indicated Hypoglycemia No Overview Addendum 05/23/2024 8:46 AM by Marybel Suarez, ADMISSIONS SUPERVISOR Resolved once TPN started Nausea with vomiting No Overview Addendum 05/28/2024 8:26 AM by Sidney Jackson MD TPN running Advance PO diet as able Acute blood loss anemia (ABLA) No Overview Addendum 05/23/2024 8:43 AM by Marybel Suarez, ADMISSIONS SUPERVISOR Lab Results Component Value Date HGB 9.0 [...] Note Rere Hunter 53 y.o. female CSN: [id number] Admission: 05/01/2024 11:01 PM Primary Problem: CAD, [...] NAYA Albarran * Progress Notes - Db Kilne - 05/28/2024 7:32 AM EDT Pharmacist TPN [...] Value Units Date/Time Blood Culture (Aerobic/Anaerobet Set) [[id number]] Collected: 05/23/24 1020 Order Status: Completed Specimen: Blood, Venous Updated: 05/24/24 1101 Culture No growth at day 1 Fungal Blood Culture [[id number]] Collected: 05/17/241812 Order Status: Completed Specimen: Blood, Venous Updated: 05/24/24 0638 Culture No Fungal Growth at 1 Week AFB Blood Culture [[id number]] Collected: 05/17/241812 Order Status: Completed Specimen: Blood, Venous Updated: 05/24/24 0638 AFB Culture No Mycobacterial Growth at 1 Week Vitals: Visit Vitals BP 138/81 Pulse 90 Temp 36.8 ??C (98.2 ??F) Resp 20 Babcock Coma Scale Score: 15 Shaan Scale Score: [...] Weight: 61.1 kg (134 lb 12.8 oz) [place] body weight: 47.8 kg (105 lb 4.8 oz) Adjusted ideal body weight: 52.8 kg (116 lb 5.7 oz) (126.25%) of IBW Body mass index is 25.13 kg/m??. Adjusted wt: 50.9 kg (if over 125% of IBW) CENTRAL IV Access: PICC (05/18/24) Estimated Nutritional Needs: HBE: 1153 Stress Factor: 1.2-1.4 Total Calories/day: 9696-7540 Protein (amino acids): 1.3-1.6 grams/kg Protein (Amino [...] multiple vessel NSTEMI (non-ST elevated myocardial infarction) ([facility]) GERD (gastroesophageal reflux disease) Leukocytosis Hyperlipidemia THOM (obstructive sleep apnea) S/P CABG x 4 Hypertension Cardiac volume overload Hypoglycemia Nausea with vomiting Acute blood loss anemia (ABLA) Gastric perforation (CMS/HCC) On total parenteral nutrition (TPN) Ileus ([facility]) Electrolyte abnormality Colon perforation ([facility]) Post-op pain [2] Past Medical History: Diagnosis Date Anxiety COPD (chronic obstructive pulmonary disease) (CMS/HCC) 05/01/2024 Continue Duo nebs q6 SPO2 goal >88% Depression GERD (gastroesophageal reflux disease) 05/01/2024 Continue Protonix 40 mg daily Hyperkalemia 05/06/2024 Now resolved, pt with hypokalemia requiring replacement On mechanically assisted ventilation (CMS/HCC) 05/06/2024 Arrived to ICU intubated 05/07 extubated to 4LNC 05/08 resolved Tobacco use 05/01/2024 Screen Handler for smoking 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 Complicates all [...] Value Units Date/Time Blood Culture (Aerobic/Anaerobet Set) [[id number]] Collected: 05/23/24 1020 Order Status: Completed Specimen: Blood, Venous Updated: 05/24/24 1101 Culture No growth at day 1 Fungal Blood Culture [[id number]] Collected: 05/17/241812 Order Status: Completed Specimen: Blood, Venous Updated: 05/24/24 0638 Culture No Fungal Growth at 1 Week AFB Blood Culture [[id number]] Collected: 05/17/241812 Order Status: Completed Specimen: Blood, Venous Updated: 05/24/2438 AFB Culture No Mycobacterial Growth at 1 Week Vitals: Visit Vitals BP (!) 141/59 Pulse 88 Temp 37.4 ??C (99.3 ??F) (Bladder) Resp 14 Babcock Coma Scale Score: 14 Shaan Scale Score: [...] Weight: 61.1 kg (134 lb 12.8 oz) [place] body weight: 47.8 kg (105 lb 4.8 oz) Adjusted ideal body weight: 52.8 kg (116 lb 5.7 oz) (126.25%) of IBW Body mass index is 25.13 kg/m??. Adjusted wt: 50.9 kg (if over 125% of IBW) CENTRAL IV Access: PICC (05/18/24) Estimated Nutritional Needs: HBE: 1153 Stress Factor: 1.2-1.4 Total Calories/day: 2301-6911 Protein (amino acids): 1.3-1.6 grams/kg Protein (Amino [...] Care Surgery Pharmacist TPN Pharmacist available on [employer] Secure Chat [1] Patient Active Problem List Diagnosis Anxiety and depression COPD (chronic obstructive pulmonary disease) ([facility]) CAD, multiple vessel NSTEMI (non-ST elevated myocardial infarction) ([facility]) GERD (gastroesophageal reflux disease) Leukocytosis Hyperlipidemia THOM (obstructive sleep apnea) S/P CABG x 4 Hypertension Cardiac volume overload Hypoglycemia Nausea with vomiting Acute blood loss anemia (ABLA) Gastric perforation ([facility]) On total parenteral nutrition (TPN) Ileus ([facility]) Electrolyte abnormality Colon perforation ([facility]) Post-op pain [2] Past Medical History: Diagnosis Date Anxiety COPD (chronic obstructive pulmonary disease) ([facility]) 05/01/2024 Continue Duo nebs q6 SPO2 goal >88% Depression GERD (gastroesophageal reflux disease) 05/01/2024 Continue Protonix 40 mg daily Hyperkalemia 05/06/2024 Now resolved, pt with hypokalemia requiring replacement On mechanically assisted ventilation ([facility]) 05/06/2024 Arrived to ICU intubated 05/07 extubated to 4LNC 05/08 resolved Tobacco use 05/01/2024 Screen Handler for smoking 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 Complicates all [...] Overview Addendum 05/23/2024 8:43 AM by Marybel Saurez, ADMISSIONS SUPERVISOR Continue home bupropion XL 300 mg daily Continue home citalopram 40 mg daily Continue PRN hydroxyzine 25 mg q6 COPD (chronic obstructive pulmonary disease) ([facility]) Yes Overview Addendum 05/23/2024 8:43 AM by Daniela, Marybel D, ADMISSIONS SUPERVISOR Duo nebs q6 Wean O2 for SPO2 goal >88% NSTEMI (non-ST elevated myocardial infarction) (CMS/HCC) Yes Overview Addendum 05/22/2024 11:00 AM by Jose Aburto MD Diagnosed at OSH with elevated troponins of 0.05 to 0.23 to 0.16 Started on heparin drip DEPARTMENT SUPERVISOR, 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 Repeat troponins pending 05/07 [...] Signed 05/23/2024 8:47 AM by Marybel Suarez, ADMISSIONS SUPERVISOR Restart statin when no longer NPO THOM (obstructive sleep apnea) Yes Overview Addendum 05/23/2024 8:45 AM by Marybel Suarez, ADMISSIONS SUPERVISOR Refusing home CPAP remains on NC S/P CABG x 4 Not Applicable Overview Addendum 05/23/2024 8:45 AM by Marybel Suarez, ADMISSIONS SUPERVISOR 05/06 4vCABG w/ Dr. Austin Aspirin, statin, beta stacey as clinically appropriate Hypertension Yes Overview Addendum 05/23/2024 8:47 AM by Marybel Suarez, ADMISSIONS SUPERVISOR Metop IV while NPO Restart PO metop when appropriate Cardiac volume overload No Overview Addendum 05/18/2024 10:24 AM by Sidney Jackson MD Diuresis as clinically indicated Hypoglycemia No Overview Addendum 05/23/2024 8:46 AM by Marybel Suarez, ADMISSIONS SUPERVISOR Resolved once TPN started Nausea with vomiting No Overview Addendum 05/24/2024 11:04 AM by Jose Aburto MD NG in place Okay for sips and chips per surgery team Acute blood loss anemia (ABLA) No Overview Addendum 05/23/2024 8:43 AM by Marybel Suarez, ADMISSIONS SUPERVISOR Lab Results Component Value Date HGB 9.0 (L) 05/23/2024 CTM with daily labs Transfuse as indicated Gastric perforation (CMS/HCC) No Overview Addendum 05/24/2024 11:03 AM by Jose Aburto MD Unclear gastric vs colonic perforation. S/p ex lap with blue surgery on 05/23 On total parenteral nutrition (TPN) No Overview Signed 05/21/2024 9:26 AM by Reyna Mcdonald, ADMISSIONS SUPERVISOR Started on 05/20 Ileus (CMS/HCC) No Overview Signed 05/23/2024 8:49 AM by Marybel Suarez, ADMISSIONS SUPERVISOR - NGT for decompression - blue surgery consulted, appreciate recs - serial CT abdomen and pelvis - remains NPO, on TPN Electrolyte abnormality Yes Overview Signed 05/23/2024 8:50 AM by Marybel Suarez, ADMISSIONS SUPERVISOR - monitor and replace prn Post-op pain [...] Abdomen Lower;Upper;Mid 05/23/24 1757 Abdomen 3 GCS: Babcock Coma Scale Score: 13 Review of Systems [...] mg q6 COPD (chronic obstructive pulmonary disease) ([facility]) Yes Overview Addendum 05/23/2024 8:43 AM by Marybel Suarez, ARASH Duo nebs q6 Wean O2 for SPO2 goal >88% NSTEMI (non-ST elevated myocardial infarction) ([facility]) Yes Overview Addendum 05/22/2024 11:00 AM by Jose Aburto MD Diagnosed at OSH with elevated troponins of 0.05 to 0.23 to 0.16 Started on heparin drip DEPARTMENT SUPERVISOR, 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 Repeat troponins pending 05/07 [...] Signed 05/23/2024 8:47 AM by Marybel Suarez, ADMISSIONS SUPERVISOR Restart statin when no longer NPO THOM (obstructive sleep apnea) Yes Overview Addendum 05/23/2024 8:45 AM by Marybel Suarez, ADMISSIONS SUPERVISOR Refusing home CPAP remains on NC S/P CABG x 4 Not Applicable Overview Addendum 05/23/2024 8:45 AM by Marybel Suarez, ADMISSIONS SUPERVISOR 05/06 4vCABG w/ Dr. Austin Aspirin, statin, beta stacey as clinically appropriate Hypertension Yes Overview Addendum 05/23/2024 8:47 AM by Marybel Suarez, ADMISSIONS SUPERVISOR Metop IV while NPO Restart PO metop when appropriate Cardiac volume overload No Overview Addendum 05/18/2024 10:24 AM by Sidney Jackson MD Diuresis as clinically indicated Hypoglycemia No Overview Addendum 05/23/2024 8:46 AM by Marybel Suarez, ADMISSIONS SUPERVISOR Resolved once TPN started Nausea with vomiting No Overview Addendum 05/24/2024 11:04 AM by Jose Aburto MD NG in place Okay for sips and chips per surgery team Acute blood loss anemia (ABLA) No Overview Addendum 05/23/2024 8:43 AM by Marybel Suarez, ADMISSIONS SUPERVISOR Lab Results Component Value Date HGB 9.0 (L) 05/23/2024 CTM with daily labs Transfuse as indicated Gastric perforation (CMS/HCC) No Overview Addendum 05/24/2024 11:03 AM by Jose Aburto MD Unclear gastric vs colonic perforation. S/p ex lap with blue surgery on 05/23 On total parenteral nutrition (TPN) No Overview Signed 05/21/2024 9:26 AM by Reyna Mcdonald, ADMISSIONS SUPERVISOR Started on 05/20 Ileus (CMS/HCC) No Overview Signed 05/23/2024 8:49 AM by Marybel Suarez, ADMISSIONS SUPERVISOR - NGT for decompression - blue surgery consulted, appreciate recs - serial CT abdomen and pelvis - remains NPO, on TPN Electrolyte abnormality Yes Overview Signed 05/23/2024 8:50 AM by Marybel Suarez, ADMISSIONS SUPERVISOR - monitor and replace prn Post-op pain [...] mg q6 COPD (chronic obstructive pulmonary disease) ([facility]) Yes Overview Addendum 05/23/2024 8:43 AM by Marybel Suarez APRN Duo nebs q6 Wean O2 for SPO2 goal >88% NSTEMI (non-ST elevated myocardial infarction) ([facility]) Yes Overview Addendum 05/22/2024 11:00 AM by Jose Aburto MD Diagnosed at OSH with elevated troponins of 0.05 to 0.23 to 0.16 Started on heparin drip DEPARTMENT SUPERVISOR, 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 Repeat troponins pending 05/07 [...] Addendum 05/23/2024 8:50 AM by Marybel Suarez, ADMISSIONS SUPERVISOR Remains febrile with elevated EBC Cultures ordered and pending Hyperlipidemia Yes Overview Signed 05/23/2024 8:47 AM by Marybel Suarez, ADMISSIONS SUPERVISOR Restart statin when no longer NPO THOM (obstructive sleep apnea) Yes Overview Addendum 05/23/2024 8:45 AM by Marybel Suarez, ADMISSIONS SUPERVISOR Refusing home CPAP remains on NC S/P CABG x 4 Not Applicable Overview Addendum 05/23/2024 8:45 AM by Marybel Suarez, ADMISSIONS SUPERVISOR 05/06 4vCABG w/ Dr. Austin Aspirin, statin, beta stacey as clinically appropriate Hypertension Yes Overview Addendum 05/23/2024 8:47 AM by Marybel Suarez, ADMISSIONS SUPERVISOR Metop IV while NPO Restart PO metop when appropriate Cardiac volume overload No Overview Addendum 05/18/2024 10:24 AM by Sidney Jackson MD Diuresis as clinically indicated Hypoglycemia No Overview Addendum 05/23/2024 8:46 AM by Marybel Suarez, ADMISSIONS SUPERVISOR Resolved once TPN started Nausea with vomiting No Overview Addendum 05/24/2024 11:04 AM by Jose Aburto MD NG in place Okay for sips and chips per surgery team Acute blood loss anemia (ABLA) No Overview Addendum 05/23/2024 8:43 AM by Marybel Suarez, ADMISSIONS SUPERVISOR Lab Results Component Value Date HGB 9.0 [...] Signed 05/23/2024 8:49 AM by Marybel Suarez, ADMISSIONS SUPERVISOR - NGT for decompression - blue surgery consulted, appreciate recs - serial CT abdomen and pelvis - remains NPO, on TPN Electrolyte abnormality Yes Overview Signed 05/23/2024 8:50 AM by Marybel Suarez, ADMISSIONS SUPERVISOR - monitor and replace prn Post-op pain [...] Value Units Date/Time Blood Culture (Aerobic/Anaerobet Set) [[id number]] Collected: 05/23/24 1020 Order Status: Completed Specimen: Blood, Venous Updated: 05/24/24 1101 Culture No growth at day 1 Fungal Blood Culture [[id number]] Collected: 05/17/241812 Order Status: Completed Specimen: Blood, Venous Updated: 05/24/24 0638 Culture No Fungal Growth at 1 Week AFB Blood Culture [[id number]] Collected: 05/17/241812 Order Status: Completed Specimen: Blood, Venous Updated: 05/24/2438 AFB Culture No Mycobacterial Growth at 1 Week Vitals: Visit Vitals BP (!) 106/90 (BP Location: Right arm, Patient Position: Lying) Pulse 95 Temp 37 ??C (98.6 ??F) Resp 14 Babcock Coma Scale Score: 14 Shaan Scale Score: [...] Question: Diet texture Answer: Clear liquid 05/25/24 7872 Current Medications acetaminophen, 1,000 mg, Intravenous, q8h [...] Weight: 61.1 kg (134 lb 12.8 oz) [place] body weight: 47.8 kg (105 lb 4.8 oz) Adjusted ideal body weight: 52.8 kg (116 lb 5.7 oz) (126.25%) of IBW Body mass index is 25.13 kg/m??. Adjusted wt: 50.9 kg (if over 125% of IBW) CENTRAL IV Access: PICC (05/18/24) Estimated Nutritional Needs: HBE: 1153 Stress Factor: 1.2-1.4 Total Calories/day: 0728-4141 Protein (amino acids): 1.3-1.6 grams/kg Protein (Amino [...] Care Surgery Pharmacist TPN Pharmacist available on [employer] Secure Chat [1] Patient Active Problem List Diagnosis Anxiety and depression COPD (chronic obstructive pulmonary disease) (CMS/HCC) CAD, multiple vessel NSTEMI (non-ST elevated myocardial infarction) (CMS/HCC) GERD (gastroesophageal reflux disease) Leukocytosis Hyperlipidemia THOM (obstructive sleep apnea) S/P CABG x 4 Hypertension Cardiac volume overload Hypoglycemia Nausea with vomiting Acute blood loss anemia (ABLA) Gastric perforation (CMS/HCC) On total parenteral nutrition (TPN) Ileus ([facility]/HCC) Electrolyte abnormality Colon perforation ([facility]) Post-op pain [2] Past Medical History: Diagnosis Date Anxiety COPD (chronic obstructive pulmonary disease) (CMS/HCC) 05/01/2024 Continue Duo nebs q6 SPO2 goal >88% Depression GERD (gastroesophageal reflux disease) 05/01/2024 Continue Protonix 40 mg daily Hyperkalemia 05/06/2024 Now resolved, pt with hypokalemia requiring replacement On mechanically assisted ventilation ([facility]/HCC) 05/06/2024 Arrived to ICU intubated 05/07 extubated to 4LNC 05/08 resolved Tobacco use 05/01/2024 Screen Handler for smoking 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 Complicates all [...] mg q6 COPD (chronic obstructive pulmonary disease) ([facility]) Yes Overview Addendum 05/23/2024 8:43 AM by Marybel Suarez, ARASH Duo nebs q6 Wean O2 for SPO2 goal >88% NSTEMI (non-ST elevated myocardial infarction) ([facility]) Yes Overview Addendum 05/22/2024 11:00 AM by Jose Aburto MD Diagnosed at OSH with elevated troponins of 0.05 to 0.23 to 0.16 Started on heparin drip DEPARTMENT SUPERVISOR, 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 Repeat troponins pending 05/07 [...] Signed 05/23/2024 8:47 AM by Marybel Suarez, ADMISSIONS SUPERVISOR Restart statin when no longer NPO THOM (obstructive sleep apnea) Yes Overview Addendum 05/23/2024 8:45 AM by Marybel Suarez, ADMISSIONS SUPERVISOR Refusing home CPAP remains on NC S/P CABG x 4 Not Applicable Overview Addendum 05/23/2024 8:45 AM by Marybel Suarez, ADMISSIONS SUPERVISOR 05/06 4vCABG w/ Dr. Austin Aspirin, statin, beta stacey as clinically appropriate Hypertension Yes Overview Addendum 05/23/2024 8:47 AM by Marybel Suarez, ADMISSIONS SUPERVISOR Metop IV while NPO Restart PO metop when appropriate Cardiac volume overload No Overview Addendum 05/18/2024 10:24 AM by Sidney Jackson MD Diuresis as clinically indicated Hypoglycemia No Overview Addendum 05/23/2024 8:46 AM by Marybel Suarez, ADMISSIONS SUPERVISOR Resolved once TPN started Nausea with vomiting No Overview Addendum 05/24/2024 11:04 AM by Jose Aburto MD NG in place Okay for sips and chips per surgery team Acute blood loss anemia (ABLA) No Overview Addendum 05/23/2024 8:43 AM by Marybel Suarez, ADMISSIONS SUPERVISOR Lab Results Component Value Date HGB 9.0 (L) 05/23/2024 CTM with daily labs Transfuse as indicated Gastric perforation (CMS/HCC) No Overview Addendum 05/24/2024 11:03 AM by Jose Aburto MD Unclear gastric vs colonic perforation. S/p ex lap with blue surgery on 05/23 On total parenteral nutrition (TPN) No Overview Signed 05/21/2024 9:26 AM by Reyna Mcdonald, ADMISSIONS SUPERVISOR Started on 05/20 Ileus (CMS/HCC) No Overview Signed 05/23/2024 8:49 AM by Marybel Suarez, ADMISSIONS SUPERVISOR - NGT for decompression - blue surgery consulted, appreciate recs - serial CT abdomen and pelvis - remains NPO, on TPN Electrolyte abnormality Yes Overview Signed 05/23/2024 8:50 AM by Marybel Suarez, ADMISSIONS SUPERVISOR - monitor and replace prn Post-op pain [...] Edited by: Iman Massey MD at 05/26/2024 [id number] Iman Massey MD Procedures Cosigned by Graciela [...] 3. Cardiac volume overload 4. Colon perforation ([facility]) Procedures 05/23/2024 Procedure(s): LAPAROTOMY, EXPLORATORY, possible bowel resection, possible ostomy COLECTOMY, PARTIAL Past Medical History Patient has a past medical history of Anxiety, COPD (chronic obstructive pulmonary disease) ([facility]) (05/01/2024), Depression, GERD (gastroesophageal reflux disease) (05/01/2024), Hyperkalemia (05/06/2024), On mechanically assisted ventilation ([facility]) (05/06/2024), Tobacco use (05/01/2024), and T remor (05/01/2024). Past Surgical History Patient has a past surgical history that includes section, classic; Cholecystectomy; Shoulder surgery; Abdominal adhesion surgery; Hand surgery (Right); and Coronary artery bypass graft (05/06/2024). Precautions Medical Precautions: Fall precautions, Sternal Subjective Pt agreeable to OT session. Participants in Care Family/Caregiver Present: Yes Family/Caregiver: Other (Specify) (Friend) Acquisition Associate: Not Applicable Presentation Oxygen Therapy: Supplemental oxygen O2 Delivery Method: Nasal cannula O2 Flow Rate (L/min): 2 L/min Lines and Tubes: Telemetry Arterial Line 05/23/24 Right Radial (Active) Closed/Suction Drain 1 Inferior;Left Abdomen Bulb 19 Fr. (Active) Closed/Suction Drain 1 Left Abdomen Bulb 19 Fr. (Active) NG/OG [place] Sump 14 Fr Right nostril (Active) Colostomy [...] admission Level of Mobility: Ambulatory- community Mobility [place]: Independent gait without device (pt is the [...] Mobility Bed Mobility Exam: Rolling/Turning Level of [place]: Maximum assist (25% patient effort) Physical/Nonphysical Assist: Verbal Cues, Nonverbal cues (demo/gestures), Additional assist utilized for safety, Moderate cues Bed Mobility Exam: Scooting/Bridging Level of [place]: Minimum assist (75% patient's effort) Physical/Nonphysical Assist: Additional assist utilized for safety, Verbal Cues, Set-up required, Moderate cues Bed Mobility Exam: Supine to Sit Level of [place]: Maximum assist (25% patient's effort) Physical/Nonphysical Assist: Verbal Cues, Nonverbal cues (demo/gestures), Moderate cues, HOB elevated, Additional assist utilized for safety Transfers Transfer Exam: Sit to stand Level of [place]: Contact guard Physical/Nonphysical Assist: Verbal Cues, Moderate cues, Additional assist utilized for safety Assistive Device: Hand held assist Transfer Exam: Stand to Sit Level of [place]: Contact guard Physical/Nonphysical Assist: Verbal Cues, Additional assist utilized for safety, Moderate cues Assistive Device: Hand held assist Transfer Exam: Bed to Chair/Chair to Bed Level of [place]: Minimum assist (75% patient's effort) Physical/Nonphysical Assist: [...] to sit portion of transfer. Standardized Assessments [facility] 6-Click Daily Activities Help from Other: Don/Doff Regular Lower Body Clothings: A lot Help From Other: Bathing: A lot Help From Other: Toileting: A lot Help From Other: Don/Doff Upper Body Clothings: A lot Help From Other: Grooming: Little Help From Other: Eating Meals: A lot [facility] 6 Click - Daily Activities Score: 13 [...] 3. Cardiac volume overload 4. Colon perforation ([facility]) Procedures 05/23/2024 Procedure(s): LAPAROTOMY, EXPLORATORY, possible bowel resection, possible ostomy COLECTOMY, PARTIAL Past Medical History Patient has a past medical history of Anxiety, COPD (chronic obstructive pulmonary disease) ([facility]) (05/01/2024), Depression, GERD (gastroesophageal reflux disease) (05/01/2024), Hyperkalemia (05/06/2024), On mechanically assisted ventilation ([facility]) (05/06/2024), Tobacco use (05/01/2024), and T remor [...] Family/Caregiver Present: Yes Family/Caregiver: Other (Specify) (Friend) Acquisition Associate: Not Applicable Presentation Oxygen Therapy: Supplemental oxygen O2 Delivery Method: Nasal cannula O2 Flow Rate (L/min): 2 L/min Lines and Tubes: Telemetry Arterial Line 05/23/24 Right Radial (Active) Closed/Suction Drain 1 Inferior;Left Abdomen Bulb 19 Fr. (Active) Closed/Suction Drain 1 Left Abdomen Bulb 19 Fr. (Active) NG/OG [place] Sump 14 Fr Right nostril (Active) Colostomy [...] admission Level of Mobility: Ambulatory- community Mobility [place]: Independent gait without device (pt is the [...] Mobility Bed Mobility Exam: Rolling/Turning Level of [place]: Maximum assist (25% patient effort) Physical/Nonphysical Assist: Verbal Cues, Nonverbal cues (demo/gestures), Additional assist utilized for safety, Moderate cues Bed Mobility Exam: Scooting/Bridging Level of [place]: Minimum assist (75% patient's effort) Physical/Nonphysical Assist: Additional assist utilized for safety, Verbal Cues, Set-up required, Moderate cues Bed Mobility Exam: Supine to Sit Level of [place]: Maximum assist (25% patient's effort) Physical/Nonphysical Assist: Verbal Cues, Nonverbal cues (demo/gestures), Moderate cues, HOB elevated, Additional assist utilized for safety Transfers Transfer Exam: Sit to stand Level of [place]: Contact guard Physical/Nonphysical Assist: Verbal Cues, Moderate cues, Additional assist utilized for safety Assistive Device: Hand held assist Transfer Exam: Stand to Sit Level of [place]: Contact guard Physical/Nonphysical Assist: Verbal Cues, Additional assist utilized for safety, Moderate cues Assistive Device: Hand held assist Transfer Exam: Bed to Chair/Chair to Bed Level of [place]: Minimum assist (75% patient's effort) Physical/Nonphysical Assist: [...] rapid fatigue with all mobility. Standardized Assessments [facility] 6-Clicks Mobility Assessment Difficulty patient has turning [...] 3-5 steps with a railing?: A lot [facility] 6-Clicks Mobility Assessment Total : 14 No [...] 19 Fr. 05/23/24 1714 Abdomen 1 NG/OG [place] Sump 14 Fr Right nostril 05/11/24 2300 Right nostril 13 Colostomy Transverse RUQ 05/23/24 -- RUQ 2 Urethral Catheter Non-latex;Single lumen;Temperature probe 16 Fr. 05/23/24 1355 -- 1 Arterial Line 05/23/24 Right Radial 05/23/24 1440 Radial 1 Negative Pressure Wound Therapy Abdomen Lower;Upper;Mid 05/23/24 1757 Abdomen 1 GCS: Babcock Coma Scale Score: 15 Review of Systems [...] Addendum 05/23/2024 8:44 AM by Marybel Suarez, ADMISSIONS SUPERVISOR Patient presented to OSH on 05/01/24 c/o chest pain, LHC reveal mvCAD S/p CABG with Dr. Austin on 05/07 Anxiety and depression Yes Overview Addendum 05/23/2024 8:43 AM by Marybel Suarez, ADMISSIONS SUPERVISOR Continue home bupropion XL 300 mg daily Continue home citalopram 40 mg daily Continue PRN hydroxyzine 25 mg q6 COPD (chronic obstructive pulmonary disease) ([facility]) Yes Overview Addendum 05/23/2024 8:43 AM by Marybel Suarez, ADMISSIONS SUPERVISOR Duo nebs q6 Wean O2 for SPO2 goal >88% NSTEMI (non-ST elevated myocardial infarction) ([facility]) Yes Overview Addendum 05/22/2024 11:00 AM by Jose Aburto MD Diagnosed at OSH with elevated troponins of 0.05 to 0.23 to 0.16 Started on heparin drip DEPARTMENT SUPERVISOR, 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 Repeat troponins pending 05/07 [...] Signed 05/23/2024 8:47 AM by Marybel Suarez, ADMISSIONS SUPERVISOR Restart statin when no longer NPO THOM (obstructive sleep apnea) Yes Overview Addendum 05/23/2024 8:45 AM by Marybel Suarez, ADMISSIONS SUPERVISOR Refusing home CPAP remains on NC S/P CABG x 4 Not Applicable Overview Addendum 05/23/2024 8:45 AM by Marybel Suarez, ADMISSIONS SUPERVISOR 05/06 4vCABG w/ Dr. Austin Aspirin, statin, beta stacey as clinically appropriate Hypertension Yes Overview Addendum 05/23/2024 8:47 AM by Marybel Suarez, ADMISSIONS SUPERVISOR Metop IV while NPO Restart PO metop when appropriate Cardiac volume overload No Overview Addendum 05/18/2024 10:24 AM by Sidney Jackson MD Diuresis as clinically indicated Hypoglycemia No Overview Addendum 05/23/2024 8:46 AM by Marybel Suarez, ADMISSIONS SUPERVISOR Resolved once TPN started Nausea with vomiting No Overview Addendum 05/24/2024 11:04 AM by Jose Aburto MD NG in place Okay for sips and chips per surgery team Acute blood loss anemia (ABLA) No Overview Addendum 05/23/2024 8:43 AM by Marybel Suarez, ADMISSIONS SUPERVISOR Lab Results Component Value Date HGB 9.0 [...] Signed 05/23/2024 8:49 AM by Marybel Suarez, ADMISSIONS SUPERVISOR - NGT for decompression - blue surgery consulted, appreciate recs - serial CT abdomen and pelvis - remains NPO, on TPN Electrolyte abnormality Yes Overview Signed 05/23/2024 8:50 AM by Marybel Suarez, ADMISSIONS SUPERVISOR - monitor and replace prn Post-op pain [...] Value Units Date/Time Blood Culture (Aerobic/Anaerobet Set) [[id number]] Collected: 05/23/24 1020 Order Status: Completed Specimen: Blood, Venous Updated: 05/24/24 1101 Culture No growth at day 1 Fungal Blood Culture [[id number]] Collected: 05/17/241812 Order Status: Completed Specimen: Blood, Venous Updated: 05/24/2438 Culture No Fungal Growth at 1 Week AFB Blood Culture [[id number]] Collected: 05/17/241812 Order Status: Completed Specimen: Blood, Venous Updated: 05/24/24637 AFB Culture No Mycobacterial Growth at 1 Week Vitals: Visit Vitals BP (!) 106/90 (BP Location: Right arm, Patient Position: Lying) Pulse 106 Temp 37.7 ??C (99.9 ??F) (Bladder) Resp 19 Babcock Coma Scale Score: 15 [place] Scale Score: [...] Weight: 61.1 kg (134 lb 12.8 oz) [place] body weight: 47.8 kg (105 lb 4.8 oz) Adjusted ideal body weight: 52.8 kg (116 lb 5.7 oz) (126.25%) of IBW Body mass index is 25.13 kg/m??. Adjusted wt: 50.9 kg (if over 125% of IBW) CENTRAL IV Access: PICC (05/18/24) Estimated Nutritional Needs: HBE: 1153 Stress Factor: 1.2-1.4 Total Calories/day: 1455-3191 Protein (amino acids): 1.3-1.6 grams/kg Protein (Amino [...] and depression COPD (chronic obstructive pulmonary disease) ([facility]/H[facility]) CAD, multiple vessel NSTEMI (non-ST elevated myocardial infarction) ([facility]) GERD (gastroesophageal reflux disease) Leukocytosis Hyperlipidemia THOM [...] to 4LNC 05/08 resolved Tobacco use 05/01/2024 Screen Handler for smoking 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 Complicates all [...] below statements * Progress Notes - Betty Nnio MD - 05/25/2024 9:19 AM EDT 05/25/24 [...] Edited by: Betty Nino MD at 05/25/2024 0821 Betty Nino MD Cosigned by Judy Mancuso [...] Edited by: Iman Massey MD at 05/24/2024 [id number] Relevant review of systems was obtained as [...] mg q6 COPD (chronic obstructive pulmonary disease) ([facility]) Yes Overview Addendum 05/23/2024 8:43 AM by Marybel Suarez APRN Duo nebs q6 Wean O2 for SPO2 goal >88% NSTEMI (non-ST elevated myocardial infarction) ([facility]) Yes Overview Addendum 05/22/2024 11:00 AM by Jose Aburto MD Diagnosed at OSH with elevated troponins of 0.05 to 0.23 to 0.16 Started on heparin drip DEPARTMENT SUPERVISOR, 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 Repeat troponins pending 05/07 [...] Addendum 05/23/2024 8:50 AM by Marybel Suarez, ADMISSIONS SUPERVISOR Remains febrile with elevated EBC Cultures ordered and pending Hyperlipidemia Yes Overview Signed 05/23/2024 8:47 AM by Marybel Suarez, ADMISSIONS SUPERVISOR Restart statin when no longer NPO THOM (obstructive sleep apnea) Yes Overview Addendum 05/23/2024 8:45 AM by Marybel Suarez, ADMISSIONS SUPERVISOR Refusing home CPAP remains on [place] S/P CABG x 4 Not Applicable Overview Addendum 05/23/2024 8:45 AM by Marybel Suarez, ADMISSIONS SUPERVISOR 05/06 4vCABKeira w/ Dr. Austin Aspirin, statin, beta stacey as clinically appropriate Hypertension Yes Overview Addendum 05/23/2024 8:47 AM by Marybel Suarez, ADMISSIONS SUPERVISOR Metop IV while NPO Restart PO metop when appropriate Cardiac volume overload No Overview Addendum 05/18/2024 10:24 AM by Sidney Jackson MD Diuresis as clinically indicated Hypoglycemia No Overview Addendum 05/23/2024 8:46 AM by Marybel Suarez, ADMISSIONS SUPERVISOR Resolved once TPN started Nausea with vomiting No Overview Addendum 05/24/2024 11:04 AM by Jose Aburto MD NG in place Okay for sips and chips per surgery team Acute blood loss anemia (ABLA) No Overview Addendum 05/23/2024 8:43 AM by Marybel Suarez, ADMISSIONS SUPERVISOR Lab Results Component Value Date HGB 9.0 (L) 05/23/2024 CTM with daily labs Transfuse as indicated Gastric perforation (CMS/HCC) No Overview Addendum 05/24/2024 11:03 AM by Jose Aburto MD Unclear gastric vs colonic perforation. S/p ex lap with blue surgery on 05/23 On total parenteral nutrition (TPN) No Overview Signed 05/21/2024 9:26 AM by Reyna Mcdonald ADMISSIONS SUPERVISOR Started on 05/20 Ileus (CMS/HCC) No Overview Signed 05/23/2024 8:49 AM by Marybel Suarez, ADMISSIONS SUPERVISOR - NGT for decompression - blue surgery consulted, appreciate recs - serial CT abdomen and pelvis - remains NPO, on TPN Electrolyte abnormality Yes Overview Signed 05/23/2024 8:50 AM by Marybel Suarez, ADMISSIONS SUPERVISOR - monitor and replace prn Colon perforation [...] 2 piece;Flat Barrier/Pouch 05/24/24 1020 Site Assessment Moist;Raised;Red;[place] 05/24/24 1020 Peristomal Assessment Unable to assess [...] 05/23/24 1714 Abdomen less than 1 NG/OG [place] Sump 14 Fr Right nostril 05/11/24 2300 [...] 05/23/2024 8:43 AM by Daniela, Marybel D, ADMISSIONS SUPERVISOR Continue home bupropion XL 300 mg daily Continue home citalopram 40 mg daily Continue PRN hydroxyzine 25 mg q6 COPD (chronic obstructive pulmonary disease) ([facility]) Yes Overview Addendum 05/23/2024 8:43 AM by Marybel Suarez, ADMISSIONS SUPERVISOR Duo nebs q6 Wean O2 for SPO2 goal >88% NSTEMI (non-ST elevated myocardial infarction) ([facility]) Yes Overview Addendum 05/22/2024 11:00 AM by Jose Aburto MD Diagnosed at OSH with elevated troponins of 0.05 to 0.23 to 0.16 Started on heparin drip DEPARTMENT SUPERVISOR, 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 Repeat troponins pending 05/07 [...] Signed 05/23/2024 8:47 AM by Marybel Suarez, ADMISSIONS SUPERVISOR Restart statin when no longer NPO THOM (obstructive sleep apnea) Yes Overview Addendum 05/23/2024 8:45 AM by Marybel Suarez, ADMISSIONS SUPERVISOR Refusing home CPAP remains on [place] S/P CABG x 4 Not Applicable Overview Addendum 05/23/2024 8:45 AM by Marybel Suarez, ADMISSIONS SUPERVISOR 05/06 4vCABG w/ Dr. Austin Aspirin, statin, beta stacey as clinically appropriate Hypertension Yes Overview Addendum 05/23/2024 8:47 AM by Marybel Suarez, ADMISSIONS SUPERVISOR Metop IV while NPO Restart PO metop when appropriate Cardiac volume overload No Overview Addendum 05/18/2024 10:24 AM by Sidney Jackson MD Diuresis as clinically indicated Hypoglycemia No Overview Addendum 05/23/2024 8:46 AM by Marybel Suarez, ADMISSIONS SUPERVISOR Resolved once TPN started Nausea with vomiting No Overview Addendum 05/24/2024 11:04 AM by Jose Aburto MD NG in place Okay for sips and chips per surgery team Acute blood loss anemia (ABLA) No Overview Addendum 05/23/2024 8:43 AM by Marybel Suarez, ADMISSIONS SUPERVISOR Lab Results Component Value Date HGB 9.0 (L) 05/23/2024 CTM with daily labs Transfuse as indicated Gastric perforation (CMS/HCC) No Overview Addendum 05/24/2024 11:03 AM by Jose Aburto MD Unclear gastric vs colonic perforation. S/p ex lap with blue surgery on 05/23 On total parenteral nutrition (TPN) No Overview Signed 05/21/2024 9:26 AM by Reyna Mcdonald ADMISSIONS SUPERVISOR Started on 05/20 Ileus (CMS/HCC) No Overview Signed 05/23/2024 8:49 AM by Marybel Suarez, ADMISSIONS SUPERVISOR - NGT for decompression - blue surgery consulted, appreciate recs - serial CT abdomen and pelvis - remains NPO, on TPN Electrolyte abnormality Yes Overview Signed 05/23/2024 8:50 AM by Marybel Suarez, ADMISSIONS SUPERVISOR - monitor and replace prn Colon perforation [...] Note Rere Hunter 53 y.o. female CSN: [id number] Admission: 05/01/2024 11:01 PM Primary Problem: CAD, [...] Component Value Units Date/Time Fungal Blood Culture [[id number]] Collected: 05/17/241812 Order Status: Completed Specimen: Blood, Venous Updated: 05/24/24637 Culture No Fungal Growth at 1 Week AFB Blood Culture [[id number]] Collected: 05/17/241812 Order Status: Completed Specimen: Blood, Venous Updated: 05/24/24637 AFB Culture No Mycobacterial Growth at 1 Week Blood Culture (Aerobic/Anaerobet Set) [[id number]] Collected: 05/23/24 1020 Order Status: Completed Specimen: Blood, Venous Updated: 05/23/24 120 Culture Culture in lab Blood Culture (Aerobic/Anaerobet Set) [[id number]] Collected: 05/17/24 1116 Order Status: Completed Specimen: [...] Weight: 61.1 kg (134 lb 12.8 oz) [place] body weight: 47.8 kg (105 lb 4.8 oz) Adjusted ideal body weight: 52.8 kg (116 lb 5.7 oz) (126.25%) of IBW Body mass index is 25.13 kg/m??. Adjusted wt: 50.9 kg (if over 125% of IBW) CENTRAL IV Access: PICC (05/18/24) Estimated Nutritional Needs: HBE: 1153 Stress Factor: 1.2-1.4 Total Calories/day: 6325-5351 Protein (amino acids): 1.3-1.6 grams/kg Protein (Amino [...] (CMS/HCC) On total parenteral nutrition (TPN) Ileus ([facility]/HCC) Electrolyte abnormality Colon perforation ([facility]) [2] Past Medical History: Diagnosis Date Anxiety COPD (chronic obstructive pulmonary disease) (CMS/HCC) 05/01/2024 Continue Duo nebs q6 SPO2 goal >88% Depression GERD (gastroesophageal reflux disease) 05/01/2024 Continue Protonix 40 mg daily Hyperkalemia 05/06/2024 Now resolved, pt with hypokalemia requiring replacement On mechanically assisted ventilation (CMS/HCC) 05/06/2024 Arrived to ICU intubated 05/07 extubated to 4LNC 05/08 resolved Tobacco use 05/01/2024 Screen Handler for smoking 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 Complicates all [...] mg q6 COPD (chronic obstructive pulmonary disease) ([facility]) Yes Overview Addendum 05/23/2024 8:43 AM by Marybel Suarez APRN Duo nebs q6 Wean O2 for SPO2 goal >88% NSTEMI (non-ST elevated myocardial infarction) ([facility]) Yes Overview Addendum 05/22/2024 11:00 AM by Jose Aburto MD Diagnosed at OSH with elevated troponins of 0.05 to 0.23 to 0.16 Started on heparin drip DEPARTMENT SUPERVISOR, 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 Repeat troponins pending 05/07 [...] Signed 05/23/2024 8:47 AM by Marybel Suarez, ADMISSIONS SUPERVISOR Restart statin when no longer NPO THOM (obstructive sleep apnea) Yes Overview Addendum 05/23/2024 8:45 AM by Marybel Suarez, ADMISSIONS SUPERVISOR Refusing home CPAP remains on [place] S/P CABG x 4 Not Applicable Overview Addendum 05/23/2024 8:45 AM by Marybel Suarez APRN 05/06 4vCABG w/ Dr. Austin Aspirin, statin, beta stacey as clinically appropriate Hypertension Yes Overview Addendum 05/23/2024 8:47 AM by Marybel Suarez, ADMISSIONS SUPERVISOR Metop IV while NPO Restart PO metop [...] Addendum 05/23/2024 8:43 AM by Marybel Suarez, ADMISSIONS SUPERVISOR Lab Results Component Value Date HGB 9.0 [...] Signed 05/23/2024 8:49 AM by Marybel Suarez ADMISSIONS SUPERVISOR - NGT for decompression - blue surgery [...] PM EDT Operative Note Date: 05/23/24 Location: [facility] Name: Rere Hunter, : 1970, Diagnoses: Pre-op Diagnosis Colon perforation (CMS/HCC) Post-op Diagnosis Colon perforation (CMS/HCC) Procedure(s): Left colon resection, drainage of abscess Attending Surgeon(s): Panel 1: * Judy Mancuso - Primary Panel 2: * Lidia Troncoso - Primary Technical Supervisor(s): Panel 1: * Betty Nino MD - [...] 0400 Output (mL) 35 mL 05/24/24599 NG/OG [place] Sump 14 Fr Right nostril (Active) Placement [...] cancer through resection * Op Note - Jduy Mancuso MD - 05/23/2024 2:19 PM EDT Operative Note Date: 05/23/24 Location: [facility] Name: Rere Hunter, : 1970, Diagnoses: Pre-op Diagnosis Hollow viscus perforation Post-op Diagnosis Colon perforation (CMS/HCC) Procedure(s): Exploratory laparotomy Extensive lysis of adhesions Left colectomy (performed by colorectal surgery) End colostomy creation Abdominal washout Application of negative pressure wound VAC therapy to skin and soft tissues Attending Surgeon(s): Panel 1: * Judy Mancuso - Primary Panel 2: * Lidia Troncoso - Primary Technical Supervisor(s): Panel 1: * Betty Nino MD - [...] Output (mL) 35 mL 05/24/24 06 NG/OG [place] Sump 14 Fr Right nostril (Active) Placement [...] Anterior;Left Forearm 05/12/24 0030 Forearm 11 NG/OG [place] Sump 14 Fr Right nostril 05/11/24 2300 Right nostril 11 GCS: Babcock Coma Scale Score: 15 Review of Systems [...] mg q6 COPD (chronic obstructive pulmonary disease) ([facility]) Yes Overview Addendum 05/23/2024 8:43 AM by Marybel Suarez, ARASH Duo nebs q6 Wean O2 for SPO2 goal >88% NSTEMI (non-ST elevated myocardial infarction) ([facility]) Yes Overview Addendum 05/22/2024 11:00 AM by Jose Aburto MD Diagnosed at OSH with elevated troponins of 0.05 to 0.23 to 0.16 Started on heparin drip DEPARTMENT SUPERVISOR, 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 Repeat troponins pending 05/07 [...] Addendum 05/23/2024 8:50 AM by Marybel Suarez, ADMISSIONS SUPERVISOR Remains febrile with elevated EBC Cultures ordered and pending Hyperlipidemia Yes Overview Signed 05/23/2024 8:47 AM by Marybel Suarez, ADMISSIONS SUPERVISOR Restart statin when no longer NPO THOM (obstructive sleep apnea) Yes Overview Addendum 05/23/2024 8:45 AM by Marybel Suarez, ADMISSIONS SUPERVISOR Refusing home CPAP remains on [place] S/P CABG x 4 Not Applicable Overview Addendum 05/23/2024 8:45 AM by Marybel Suarez, ADMISSIONS SUPERVISOR 05/06 4vCABG w/ Dr. Austin Aspirin, statin, beta stacey as clinically appropriate Hypertension Yes Overview Addendum 05/23/2024 8:47 AM by Marybel Suarez, ADMISSIONS SUPERVISOR Metop IV while NPO Restart PO metop when appropriate Cardiac volume overload No Overview Addendum 05/18/2024 10:24 AM by Sidney Jackson MD Diuresis as clinically indicated Hypoglycemia No Overview Addendum 05/23/2024 8:46 AM by Marybel Suarez, ADMISSIONS SUPERVISOR Resolved once TPN started Nausea with vomiting [...] Addendum 05/23/2024 8:43 AM by Marybel Suarez, ADMISSIONS SUPERVISOR Lab Results Component Value Date HGB 9.0 [...] Arterial Line 05/23/24 Right Radial (Active) NG/OG [place] Sump 14 Fr Right nostril (Active) Urethral [...] to redirect Transfers Toilet Transfer Level of [place]: Contact guard Physical/Nonphysical Assist: Verbal Cues, Moderate [...] date. Participants in Care Family/Caregiver Present: No Acquisition Associate: Not Applicable Presentation Oxygen Therapy: Supplemental oxygen O2 Delivery Method: Nasal cannula O2 Flow Rate (L/min): 2 L/min Lines and Tubes: Telemetry NG/OG [place] Sump 14 Fr Right nostril (Active) PICC [...] Mobility Bed Mobility Exam: Rolling/Turning Level of [place]: Contact guard Physical/Nonphysical Assist: Verbal Cues, Nonverbal cues (demo/gestures), Additional assist utilized for safety, Moderate cues Bed Mobility Exam: Scooting/Bridging Level of [place]: Contact guard Physical/Nonphysical Assist: Additional assist utilized for safety, Verbal Cues, Set-up required Bed Mobility Exam: Supine to Sit Level of [place]: Contact guard Physical/Nonphysical Assist: Verbal Cues, Nonverbal cues (demo/gestures), Moderate cues, HOB elevated Bed Mobility Exam: Sit to Supine Level of [place]: Contact guard Physical/Nonphysical Assist: HOB elevated, Nonverbal cues (demo/gestures), Verbal Cues, Moderate cues, Additional assist utilized for safety Transfers Transfer Exam: Sit to stand Level of [place]: Contact guard Physical/Nonphysical Assist: Verbal Cues, Moderate cues, Additional assist utilized for safety Assistive Device: Rollator Transfer Exam: Stand to Sit Level of [place]: Contact guard Physical/Nonphysical Assist: Verbal Cues, Set-up required, Additional assist utilized for safety Assistive Device: Rollator Toilet Transfer Level of [place]: Contact guard Physical/Nonphysical Assist: Supervision, Verbal Cues, [...] Value Units Date/Time Blood Culture (Aerobic/Anaerobet Set) [[id number]] Collected: 05/17/24 1116 Order Status: Completed Specimen: Blood from Wrist, Right Updated: 05/22/24 1201 Culture No growth at day 5 Vitals: Visit Vitals BP 107/68 Pulse 95 Temp 37.9 ??C (100.2 ??F) (Bladder) Resp 18 Babcock Coma Scale Score: 15 Shaan Scale Score: [...] Weight: 61.1 kg (134 lb 12.8 oz) [place] body weight: 47.8 kg (105 lb 4.8 oz) Adjusted ideal body weight: 52.8 kg (116 lb 5.7 oz) (126.25%) of IBW Body mass index is 25.13 kg/m??. Adjusted wt: 50.9 kg (if over 125% of IBW) CENTRAL IV Access: PICC (05/18/24) Estimated Nutritional Needs: HBE: 1153 Stress Factor: 1.2-1.4 Total Calories/day: 0051-5031 Protein (amino acids): 1.3-1.6 grams/kg Protein (Amino [...] and depression COPD (chronic obstructive pulmonary disease) ([facility]) CAD, multiple vessel NSTEMI (non-ST elevated myocardial infarction) ([facility]) GERD (gastroesophageal reflux disease) Leukocytosis Hyperlipidemia THOM (obstructive sleep apnea) S/P CABG x 4 Hypertension Hyperkalemia Cardiac volume overload Hypoglycemia Nausea with vomiting Acute blood loss anemia (ABLA) Gastric perforation ([facility]) On total parenteral nutrition (TPN) [2] Past Medical History: Diagnosis Date Anxiety COPD (chronic obstructive pulmonary disease) ([facility]) 05/01/2024 Continue Duo nebs q6 SPO2 goal >88% Depression GERD (gastroesophageal reflux disease) 05/01/2024 Continue Protonix 40 mg daily On mechanically assisted ventilation ([facility]) 05/06/2024 Arrived to ICU intubated 05/07 extubated to 4LNC 05/08 resolved Tobacco use 05/01/2024 Screen Handler for smoking 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 Complicates all [...] main artery stenosis Started on heparin drip DEPARTMENT SUPERVISOR, continue CT Surgery consulted CABG work-up pending [...] mg q6 COPD (chronic obstructive pulmonary disease) ([facility]) Yes Overview Addendum 05/12/2024 12:27 PM by Christi Sherman ADMISSIONS SUPERVISOR 05/07 Duo nebs q6 SPO2 goal >88% On 4LNC 05/08 on 2LNC 05/09 on 2LNC +40 lasix 05/12 ongoing 3L NSTEMI (non-ST elevated myocardial infarction) ([facility]) Yes Overview Addendum 05/22/2024 11:00 AM by Jose Aburto MD Diagnosed at OSH with elevated troponins of 0.05 to 0.23 to 0.16 Started on heparin drip DEPARTMENT SUPERVISOR, 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 Repeat troponins pending 05/07 [...] Anterior;Left Forearm 05/12/24 0030 Forearm 10 NG/OG [place] Sump 14 Fr Right nostril 05/11/24 2300 Right nostril 10 Urethral Catheter Temperature probe 05/17/24 1430 -- 4 GCS: Babcock Coma Scale Score: 15 Review of Systems [...] 05/12/2024 12:[address], Christi B, ADMISSIONS SUPERVISOR Patient presented to OSH on 05/01/24 c/o chest pain Loaded with ASA & Plavix, continue LHC on 05/01/24 showed critical distal left main artery stenosis Started on heparin drip DEPARTMENT SUPERVISOR, continue CT Surgery consulted CABG work-up pending [...] mg q6 COPD (chronic obstructive pulmonary disease) ([facility]) Yes Overview Addendum 05/12/2024 12:27 PM by Christi Sherman APRN 05/07 Duo nebs q6 SPO2 goal >88% On 4LNC 05/08 on 2LNC 05/09 on 2LNC +40 lasix 05/12 ongoing 3L NSTEMI (non-ST elevated myocardial infarction) ([facility]) Yes Overview Addendum 05/22/2024 11:00 AM by Jose Aburto MD Diagnosed at OSH with elevated troponins of 0.05 to 0.23 to 0.16 Started on heparin drip DEPARTMENT SUPERVISOR, 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 Repeat troponins pending 05/07 [...] and depression COPD (chronic obstructive pulmonary disease) ([facility]/HCC) NSTEMI (non-ST elevated myocardial infarction) ([facility]) GERD (gastroesophageal reflux disease) Leukocytosis Hyperlipidemia THOM [...] Value Units Date/Time Blood Culture (Aerobic/Anaerobet Set) [[id number]] Collected: 05/17/24 1116 Order Status: Completed Specimen: Blood from Wrist, Right Updated: 05/21/24 1201 Culture No growth at day 4 Vitals: Visit Vitals BP 122/69 Pulse 85 Temp 37.5 ??C (99.5 ??F) (Bladder) Resp 21 Babcock Coma Scale Score: 15 Shaan Scale Score: [...] Weight: 61.1 kg (134 lb 12.8 oz) [place] body weight: 47.8 kg (105 lb 4.8 oz) Adjusted ideal body weight: 52.8 kg (116 lb 5.7 oz) (126.25%) of IBW Body mass index is 25.13 kg/m??. Adjusted wt: 50.9 kg (if over 125% of IBW) CENTRAL IV Access: PICC (05/18/24) Estimated Nutritional Needs: HBE: 1153 Stress Factor: 1.2-1.4 Total Calories/day: 2231-5467 Protein (amino acids): 1.3-1.6 grams/kg Protein (Amino [...] and depression COPD (chronic obstructive pulmonary disease) ([facility]) CAD, multiple vessel NSTEMI (non-ST elevated myocardial infarction) ([facility]) GERD (gastroesophageal reflux disease) Leukocytosis Hyperlipidemia THOM (obstructive sleep apnea) S/P CABG x 4 Hypertension Hyperkalemia Cardiac volume overload Hypoglycemia Nausea with vomiting Acute blood loss anemia (ABLA) Gastric perforation ([facility]) On total parenteral nutrition (TPN) [2] Past Medical History: Diagnosis Date Anxiety COPD (chronic obstructive pulmonary disease) (CMS/HCC) 05/01/2024 Continue Duo nebs q6 SPO2 goal >88% Depression GERD (gastroesophageal reflux disease) 05/01/2024 Continue Protonix 40 mg daily On mechanically assisted ventilation (CMS/HCC) 05/06/2024 Arrived to ICU intubated 05/07 extubated to [facility] 05/08 resolved Tobacco use 05/01/2024 Screen Handler for smoking 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 Complicates all [...] Note Rere Hunter 53 y.o. female CSN: [id number] Room/Bed 216/216A Nutrition evaluation type: follow-up Reason [...] (Calculated): 25.46 Weight Evaluation: Overweight (BMI 25-29.9) [place] Body Weight (kg): 47.7 Percent [place] Body Weight: 126 Adjusted Body Weight (kg): 50.9 Estimated Needs: Kcal/ K-30 Kcal Provided: 5314-0183 Kcal Needs Based On: Adjusted weight Gm [...] Provided: Will monitor Pertinent home medications: reviewed Jewish needs: Nutrition Focused Physical Exam: Physical exam [...] Date Anxiety COPD (chronic obstructive pulmonary disease) ([facility]) 05/01/2024 Continue Duo nebs q6 SPO2 goal >88% Depression GERD (gastroesophageal reflux disease) 05/01/2024 Continue Protonix 40 mg daily On mechanically assisted ventilation ([facility]) 05/06/2024 Arrived to ICU intubated 05/07 extubated to 4LNC 05/08 resolved Tobacco use 05/01/2024 Screen Handler for smoking 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 Complicates all [...] Edited by: Iman Massey MD at 05/21/2024 8713 Relevant review of systems was obtained as [...] main artery stenosis Started on heparin drip DEPARTMENT SUPERVISOR, continue CT Surgery consulted CABG work-up pending [...] mg q6 COPD (chronic obstructive pulmonary disease) ([facility]/HCC) Yes Overview Addendum 05/12/2024 12:27 PM by Christi Sherman APRN 05/07 Duo nebs q6 SPO2 goal >88% On 4LNC 05/08 on 2LNC 05/09 on 2LNC +40 lasix 05/12 ongoing 3L NSTEMI (non-ST elevated myocardial infarction) ([facility]) Yes Overview Addendum 05/11/2024 10:54 AM by Miguel Downey MD Diagnosed at OSH with elevated troponins of 0.05 to 0.23 to 0.16 Started on heparin drip DEPARTMENT SUPERVISOR, 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 Repeat troponins pending 05/07 [...] Note Rere Hunter 53 y.o. female CSN: [id number] Admission: 05/01/2024 11:01 PM Primary Problem: CAD, [...] Anterior;Right;Upper Arm 05/18/24 0400 Arm 3 NG/OG [place] Sump 14 Fr Right nostril 05/11/24 2300 [...] main artery stenosis Started on heparin drip DEPARTMENT SUPERVISOR, continue CT Surgery consulted CABG work-up pending [...] mg q6 COPD (chronic obstructive pulmonary disease) ([facility]) Yes Overview Addendum 05/12/2024 12:27 PM by Christi Sherman APRN 05/07 Duo nebs q6 SPO2 goal >88% On 4LNC 05/08 on 2LNC 05/09 on 2LNC +40 lasix 05/12 ongoing 3L NSTEMI (non-ST elevated myocardial infarction) (CMS/HCC) Yes Overview Addendum 05/11/2024 10:54 AM by Miguel Downey MD Diagnosed at OSH with elevated troponins of 0.05 to 0.23 to 0.16 Started on heparin drip DEPARTMENT SUPERVISOR, 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 Repeat troponins pending 05/07 [...] of Anxiety, COPD (chronic obstructive pulmonary disease) ([facility]) (05/01/2024), Depression, GERD (gastroesophageal reflux disease) (05/01/2024), On mechanically assisted ventilation ([facility]) (05/06/2024), Tobacco use (05/01/2024), and Tremor (05/01/2024). [...] Care Family/Caregiver Present: No Family/Caregiver: Adult Son Acquisition Associate: Not Applicable Presentation Oxygen Therapy: Supplemental oxygen [...] admission Level of Mobility: Ambulatory- community Mobility [place]: Independent gait without device (pt is the [...] Mobility Bed Mobility Exam: Rolling/Turning Level of [place]: Moderate assist (50% patient effort) Physical/Nonphysical Assist: Verbal Cues, Nonverbal cues (demo/gestures), Additional assist utilized for safety, Moderate cues Bed Mobility Exam: Scooting/Bridging Level of [place]: Contact guard (Scoot to edge of bed) Physical/Nonphysical Assist: Additional assist utilized for safety, Verbal Cues, Set-up required Bed Mobility Exam: Supine to Sit Level of [place]: Moderate assist (50% patient's effort) Physical/Nonphysical Assist: Verbal Cues, Nonverbal cues (demo/gestures), Moderate cues, HOB elevated Transfers Transfer Exam: Sit to stand Level of [place]: Contact guard Physical/Nonphysical Assist: Verbal Cues, Moderate cues, 1 person + 1 person to manage equipment Assistive Device: Hand held assist Transfer Exam: Stand to Sit Level of [place]: Contact guard Physical/Nonphysical Assist: Verbal Cues, Set-up required Assistive Device: Hand held assist Transfer Exam: Bed to Chair/Chair to Bed Level of [place]: Minimum assist (75% patient's effort) Physical/Nonphysical Assist: [...] sessions. Pt agreeable to HEP. Standardized Assessments [facility] 6-Clicks Mobility Assessment Difficulty patient has turning [...] 3-5 steps with a railing?: A lot [facility] 6-Clicks Mobility Assessment Total : 16 Assessment [...] of Anxiety, COPD (chronic obstructive pulmonary disease) ([facility]) (05/01/2024), Depression, GERD (gastroesophageal reflux disease) (05/01/2024), On mechanically assisted ventilation ([facility]) (05/06/2024), Tobacco use (05/01/2024), and Tremor (05/01/2024). [...] 1 L/min Lines and Tubes: Telemetry NG/OG [place] Sump 14 Fr Right nostril (Active) Urethral [...] admission Level of Mobility: Ambulatory- community Mobility [place]: Independent gait without device (pt is the [...] Mobility Bed Mobility Exam: Scooting/Bridging Level of [place]: Contact guard (Scoot to edge of bed) Physical/Nonphysical Assist: Additional assist utilized for safety, Verbal Cues, Set-up required Bed Mobility Exam: Supine to Sit Level of [place]: Moderate assist (50% patient's effort) Physical/Nonphysical Assist: Verbal Cues, Nonverbal cues (demo/gestures), Moderate cues, HOB elevated Transfers Transfer Exam: Sit to stand Level of [place]: Contact guard Physical/Nonphysical Assist: Verbal Cues, Moderate cues, 1 person + 1 person to manage equipment Assistive Device: Hand held assist Transfer Exam: Stand to Sit Level of [place]: Contact guard Physical/Nonphysical Assist: Verbal Cues, Set-up required Assistive Device: Hand held assist Transfer Exam: Bed to Chair/Chair to Bed Level of [place]: Minimum assist (75% patient's effort) Physical/Nonphysical Assist: Verbal Cues, Moderate cues, Additional assist utilized for safety, Nonverbal cues (demo/gestures) Type of Transfer: Sidesteps Assistive Device: Hand held assist Toilet Transfer Level of [place]: Minimum assist (75% patient's effort) Physical/Nonphysical Assist: [...] bed to recliner with min A via TECHNICAL SUPERVISOR. Pt required increased time on BSC and supervision for safety. Pt required min A to stand from BSC and total A for posterior hygiene due to impaired dynamic balance requiring UE support to maintain balance. Pt required min A via TECHNICAL SUPERVISOR to take side steps to recliner. Pt [...] maximize muscle gain with exercises. Access Code: [email or web address] URL: [email or web address] Date: 05/21/2024Prepared by: Bryson Exercises - Seated [...] 3 sets - 10 reps Standardized Assessments [facility] 6-Click Daily Activities Help from Other: Don/Doff Regular Lower Body Clothings: A lot Help From Other: Bathing: A lot Help From Other: Toileting: A lot Help From Other: Don/Doff Upper Body Clothings: Little Help From Other: Grooming: Little Help From Other: Eating Meals: Total (NPO on TPN) [facility] 6 Click - Daily Activities Score: 13 [...] Value Units Date/Time Blood Culture (Aerobic/Anaerobet Set) [[id number]] Collected: 05/17/24 1116 Order Status: Completed Specimen: Blood from Wrist, Right Updated: 05/20/24 1201 Culture No growth at day 3 Comprehensive GI Panel by PCR [[id number]] (Normal) Collected: 05/18/24 2347 Order Status: Completed [...] ??C (98.8 ??F) (Bladder) Resp (!) 29 Babcock Coma Scale Score: 15 Shaan Scale Score: [...] Weight: 61.1 kg (134 lb 12.8 oz) [place] body weight: 47.8 kg (105 lb 4.8 oz) Adjusted ideal body weight: 52.8 kg (116 lb 5.7 oz) (126.25%) of IBW Body mass index is 25.13 kg/m??. Adjusted wt: 50.9 kg (if over 125% of IBW) CENTRAL IV Access: PICC (05/18/24) Estimated Nutritional Needs: HBE: 1153 Stress Factor: 1.2-1.4 Total Calories/day: 2192-4928 Protein (amino acids): 1.3-1.6 grams/kg Protein (Amino [...] and depression COPD (chronic obstructive pulmonary disease) ([facility]) CAD, multiple vessel NSTEMI (non-ST elevated myocardial infarction) ([facility]) GERD (gastroesophageal reflux disease) Leukocytosis Hyperlipidemia THOM (obstructive sleep apnea) S/P CABG x 4 Hypertension Hyperkalemia Cardiac volume overload Hypoglycemia Nausea with vomiting Acute blood loss anemia (ABLA) Gastric perforation ([facility]) [2] Past Medical History: Diagnosis Date Anxiety COPD (chronic obstructive pulmonary disease) ([facility]) 05/01/2024 Continue Duo nebs q6 SPO2 goal >88% Depression GERD (gastroesophageal reflux disease) 05/01/2024 Continue Protonix 40 mg daily On mechanically assisted ventilation ([facility]) 05/06/2024 Arrived to ICU intubated 05/07 extubated to [facility] 05/08 resolved Tobacco use 05/01/2024 Screen Handler for smoking 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 Complicates all [...] 3:33 PM EDT Associated attestation - Moni Méndze PharmD - 05/21/2024 3:33 PM EDT I [...] disease) (CMS/HCC) NSTEMI (non-ST elevated myocardial infarction) (CMS/[facility]) GERD (gastroesophageal reflux disease) Leukocytosis Hyperlipidemia THOM [...] Anterior;Right;Upper Arm 05/18/24 0400 Arm 2 NG/OG [place] Sump 14 Fr Right nostril 05/11/24 2300 Right nostril 8 Urethral Catheter Temperature probe 05/17/24 1430 -- 2 Arterial Line 05/17/24 Right Radial 05/17/24 1400 Radial 2 GCS: Babcock Coma Scale Score: 15 Review of Systems [...] main artery stenosis Started on heparin drip DEPARTMENT SUPERVISOR, continue CT Surgery consulted CABG work-up pending [...] mg q6 COPD (chronic obstructive pulmonary disease) ([facility]) Yes Overview Addendum 05/12/2024 12:27 PM by Christi Sherman APRN 05/07 Duo nebs q6 SPO2 goal >88% On 4LNC 05/08 on 2LNC 05/09 on 2LNC +40 lasix 05/12 ongoing 3L NSTEMI (non-ST elevated myocardial infarction) ([facility]) Yes Overview Addendum 05/11/2024 10:54 AM by Miguel Downey MD Diagnosed at OSH with elevated troponins of 0.05 to 0.23 to 0.16 Started on heparin drip DEPARTMENT SUPERVISOR, 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 Repeat troponins pending 05/07 [...] Value Units Date/Time Blood Culture (Aerobic/Anaerobet Set) [[id number]] Collected: 05/13/24 0947 Order Status: Completed Specimen: [...] Weight: 61.1 kg (134 lb 12.8 oz) [place] body weight: 47.8 kg (105 lb 4.8 oz) Adjusted ideal body weight: 52.8 kg (116 lb 5.7 oz) (126.25%) of IBW Body mass index is 25.13 kg/m??. Adjusted wt: 50.9 kg (if over 125% of IBW) CENTRAL IV Access: PICC (05/18/24) Estimated Nutritional Needs: HBE: 1153 Stress Factor: 1.2-1.4 Total Calories/day: 3479-1684 Protein (amino acids): 1.3-1.6 grams/kg Protein (Amino [...] main artery stenosis Started on heparin drip DEPARTMENT SUPERVISOR, continue CT Surgery consulted CABG work-up pending [...] ongoing 3L NSTEMI (non-ST elevated myocardial infarction) ([facility]) Yes Overview Addendum 05/11/2024 10:54 AM by Miguel Downey MD Diagnosed at OSH with elevated troponins of 0.05 to 0.23 to 0.16 Started on heparin drip DEPARTMENT SUPERVISOR, 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 Repeat troponins pending 05/07 [...] Overview Addendum 05/18/2024 10:24 AM by Sidney Jacksno MD Diuresis as clinically indicated Hypoglycemia No Overview Addendum 05/13/2024 12:40 PM by Christi Sherman ADMISSIONS SUPERVISOR - continue to monitor, checking LFTs On [...] disease) (CMS/HCC) NSTEMI (non-ST elevated myocardial infarction) (CMS/[facility]) GERD (gastroesophageal reflux disease) Leukocytosis Hyperlipidemia THOM [...] depression, and tobacco use who presented to [facility] on 05/01/24 with chest pain. Loaded with ASA and Plavix. LHC at OSH performed showed critical distal left main artery stenosis. Also diagnosed with NSTEMI at OSH with elevated troponins of 0.05 to 0.23 to 0.16. Placed on a heparin drip prior to arrival. Transferred to [facility] on 05/01/24 for CABG evaluation by CT [...] Date Anxiety COPD (chronic obstructive pulmonary disease) ([facility]) 05/01/2024 Continue Duo nebs q6 SPO2 goal >88% Depression GERD (gastroesophageal reflux disease) 05/01/2024 Continue Protonix 40 mg daily On mechanically assisted ventilation ([facility]) 05/06/2024 Arrived to ICU intubated 05/07 extubated to 4LNC 05/08 resolved Tobacco use 05/01/2024 Screen Handler for smoking 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 Complicates all [...] is no recent study available for direct [id number] comparison. Assessment & Plan: Multivessel CAD s/p CABG Gastric fluid/gas collection - presented to [facility] on 05/01/24 with chest pain. Loaded with ASA and Plavix. - LHC at OSH performed showed critical distal left main artery stenosis. - Also diagnosed with NSTEMI at OSH with elevated troponins of 0.05 to 0.23 to 0.16. - Placed on a heparin drip prior to arrival. Transferred to [facility] on 05/01/24 for CABG evaluation by CT [...] 650 mg, Rectal, q6h PRN, Marybel Suarez, ADMISSIONS SUPERVISOR, 650mg at 05/19/24 1415 Adult 2-in-1 TPN, [...] mL, Nebulization, q6h PRN, Yousif, Trinity S, ADMISSIONS SUPERVISOR, 3 mL at 05/17/24 1551 micafungin (Mycamine) 100 mg in sodium chloride 0.9 % 100 mL IVPB, 100 mg, Intravenous, q24h, Marybel Suarez, ADMISSIONS SUPERVISOR, 100 mg at 05/20/24 0454 nicotine (Nicoderm [...] Jayson Estrada MD PGY-3 General Surgery Pager #[phone] * Progress Notes - Dieudonne Cramer MD [...] Anterior;Right;Upper Arm 05/18/24 0400 Arm 1 NG/OG [place] Sump 14 Fr Right nostril 05/11/24 2300 [...] main artery stenosis Started on heparin drip DEPARTMENT SUPERVISOR, continue CT Surgery consulted CABG work-up pending [...] mg q6 COPD (chronic obstructive pulmonary disease) ([facility]) Yes Overview Addendum 05/12/2024 12:27 PM by Christi Sherman APRN 05/07 Duo nebs q6 SPO2 goal >88% On 4LNC 05/08 on 2LNC 05/09 on 2LNC +40 lasix 05/12 ongoing 3L NSTEMI (non-ST elevated myocardial infarction) ([facility]) Yes Overview Addendum 05/11/2024 10:54 AM by Miguel Downey MD Diagnosed at OSH with elevated troponins of 0.05 to 0.23 to 0.16 Started on heparin drip DEPARTMENT SUPERVISOR, 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 Repeat troponins pending 05/07 [...] Value Units Date/Time Blood Culture (Aerobic/Anaerobet Set) [[id number]] Collected: 05/13/24 0947 Order Status: Completed Specimen: [...] Weight: 61.1 kg (134 lb 12.8 oz) [place] body weight: 47.8 kg (105 lb 4.8 oz) Adjusted ideal body weight: 52.8 kg (116 lb 5.7 oz) (126.25%) of IBW Body mass index is 25.13 kg/m??. Adjusted wt: 50.9 kg (if over 125% of IBW) CENTRAL IV Access: PICC (05/18/24) Estimated Nutritional Needs: HBE: 1153 Stress Factor: 1.2-1.4 Total Calories/day: 3748-7940 Protein (amino acids): 1.3-1.6 grams/kg Protein (Amino [...] TPN likely 05/19. Edited by: Marybel Suarez, ADMISSIONS SUPERVISOR at 05/19/2024 0517 Lines/Drains/Tubes: Patient Lines/Drains/Airways Status Active Active LDAs Name Placement date Placement time Site Days PICC Double Lumen 05/19/24 Left Basilic vein 05/19/24 0050 Basilic vein less than 1 Peripheral IV 05/12/24 Anterior;Left Forearm 05/12/24 0030 Forearm 7 Peripheral IV 05/18/24 Anterior;Right;Upper Arm 05/18/24 0400 Arm 1 NG/OG [place] S[place] 14 Fr Right nostril 05/11/24 2300 Right nostril 7 Urethral Catheter Temperature probe 05/17/24 1430 -- 1 Arterial Line 05/17/24 Right Radial 05/17/24 1400 Radial 1 GCS: Babcock Coma Scale Score: 14 Review of Systems [...] main artery stenosis Started on heparin drip DEPARTMENT SUPERVISOR, continue CT Surgery consulted CABG work-up pending [...] mg q6 COPD (chronic obstructive pulmonary disease) ([facility]/HCC) Yes Overview Addendum 05/12/2024 12:27 PM by Christi Sherman APRN 05/07 Duo nebs q6 SPO2 goal >88% On 4LNC 05/08 on 2LNC 05/09 on 2LNC +40 lasix 05/12 ongoing 3L NSTEMI (non-ST elevated myocardial infarction) ([facility]/HCC) Yes Overview Addendum 05/11/2024 10:54 AM by Miguel Downey MD Diagnosed at OSH with elevated troponins of 0.05 to 0.23 to 0.16 Started on heparin drip DEPARTMENT SUPERVISOR, 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 Repeat troponins pending 05/07 [...] 05/13/2024 12:[address], Christi B, ADMISSIONS SUPERVISOR - continue to monitor, checking LFTs On [...] Holt RN Authorized by: Maite Austin MD [place] Protocol: Verbal consent obtained?: Yes Written consent obtained?: Yes Risks and benefits: Risks, benefits and alternatives were discussed Consent given by: Patient and power of blog writer (Written Consent obtained by madalyn VAT/PICC RN [...] Left Location (Adult): Basilic vein (Largest vein, iaaruthq-im-aqeg ratio 27%) Site selection rationale: RUE PIV and right radial arterial line. Patient position: Supine Catheter Lot #: [id number] Catheter extrusion press adjuster: NXT-ID Power PICC Provena Catheter placed: Double lumen [...] placed on end of each lumen hub. [place] limb precautionarmband placed on left wrist for [...] main artery stenosis Started on heparin drip DEPARTMENT SUPERVISOR, continue CT Surgery consulted CABG work-up pending [...] 0.23 to 0.16 Started on heparin drip DEPARTMENT SUPERVISOR, 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 Repeat troponins pending 05/07 [...] Note Rere Hunter 53 y.o. female CSN: [id number] Room/Bed 216/216A Nutrition evaluation type: follow-up Reason [...] (Calculated): 25.13 Weight Evaluation: Overweight (BMI 25-29.9) [place] Body Weight (kg): 47.7 Percent [place] Body Weight: 126 Adjusted Body Weight (kg): 50.9 Estimated Needs: Metabolic Cart Study Results: Current Nutrition Intake: Diet Order: NPO Diet Texture: (-) Adult Carbohydrate Restriction: (-) Fat Restriction: (-) Percent Meals Eaten (%): (-) Diet Experience and Nutrition History: Diet Education Provided: Will monitor Pertinent home medications: reviewed Jewish needs: Nutrition Focused Physical Exam: Physical exam [...] Date Anxiety COPD (chronic obstructive pulmonary disease) ([facility]) 05/01/2024 Continue Duo nebs q6 SPO2 goal >88% Depression GERD (gastroesophageal reflux disease) 05/01/2024 Continue Protonix 40 mg daily On mechanically assisted ventilation ([facility]) 05/06/2024 Arrived to ICU intubated 05/07 extubated to 4LNC 05/08 resolved Tobacco use 05/01/2024 Screen Handler for smoking 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 Complicates all [...] Kinsey MD Gastroenterology and Hepatology PGY-5 Secure chat/[phone] [1] Past Medical History: Diagnosis Date Anxiety COPD (chronic obstructive pulmonary disease) (CMS/HCC) 05/01/2024 Continue Duo nebs q6 SPO2 goal >88% Depression GERD (gastroesophageal reflux disease) 05/01/2024 Continue Protonix 40 mg daily On mechanically assisted ventilation ([facility]/HCC) 05/06/2024 Arrived to ICU intubated 05/07 extubated to [facility] 05/08 resolved Tobacco use 05/01/2024 Screen Handler for smoking 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 Complicates all [...] Intramuscular, q15 min PRN, Daniela, Marybel D, ADMISSIONS SUPERVISOR heparin (porcine) injection 5,000 Units, 5,000 Units, Subcutaneous, q8h, Sundeep Newsome MD, 5,000 Units at 05/18/24 0343 ipratropium-albuterol (Duo-Neb) 0.5-2.5 mg/3 mL nebulizer solution 3 mL, 3 mL, Nebulization, q6h PRN, Trinity Yousif APRN, 3 mL at 05/17/24 1551 micafungin (Mycamine) 100 mg in sodium chloride 0.9 % 100 mL IVPB, 100 mg, Intravenous, q24h, Marybel Suarez, ADMISSIONS SUPERVISOR, 100 mg at 05/18/24 0643 nicotine (Nicoderm CQ) 14 MG/24HR patch 1 patch, 1 patch, Transdermal, Daily PRN, Arpan Hull MD nicotine polacrilex (Commit) lozenge 2 mg, 2 mg, Mouth/Throat, q2h PRN, Abran Hull MD nystatin (Mycostatin) [id number] UNIT/ML suspension 400,000 Units, 4 mL, Swish [...] main artery stenosis Started on heparin drip DEPARTMENT SUPERVISOR, continue CT Surgery consulted CABG work-up pending [...] mg q6 COPD (chronic obstructive pulmonary disease) ([facility]/HCC) Yes Overview Addendum 05/12/2024 12:27 PM by Christi Sherman APRN 05/07 Duo nebs q6 SPO2 goal >88% On 4LNC 05/08 on 2LNC 05/09 on 2LNC +40 lasix 05/12 ongoing 3L NSTEMI (non-ST elevated myocardial infarction) (CMS/HCC) Yes Overview Addendum 05/11/2024 10:54 AM by Miguel Downey MD Diagnosed at OSH with elevated troponins of 0.05 to 0.23 to 0.16 Started on heparin drip DEPARTMENT SUPERVISOR, 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 Repeat troponins pending 05/07 [...] plan as documented. Tere Snow MD, FACS exhibit display representative Trauma Acute Care Surgery * Significant Event - Vicky Arciniega MD - 05/18/2024 4:50 AM EDT Paged by primary team to review CTAP. Imaging is concerning for focal gastric perforation with [id number] abscess. Patient has been febrile for several [...] Vicky Arciniega MD General Surgery PGY2 Pager: [phone] * H&P - Dieudonne Cramer MD - [...] Anterior;Left;Proximal Forearm 05/12/24 0840 Forearm 5 NG/OG [place] Sump 14 Fr Right nostril 05/11/24 2300 [...] Date Anxiety COPD (chronic obstructive pulmonary disease) ([facility]) 05/01/2024 Depression GERD (gastroesophageal reflux disease) 05/01/2024 On mechanically assisted ventilation ([facility]) 05/06/2024 Tobacco use 05/01/2024 Tremor 05/01/2024 Past [...] Reviewed and otherwise non-contributory. Allergies: Allergies[4] GCS: Babcock Coma Scale Score: 14 Review of Systems [...] main artery stenosis Started on heparin drip DEPARTMENT SUPERVISOR, continue CT Surgery consulted CABG work-up pending [...] mg q6 COPD (chronic obstructive pulmonary disease) ([facility]/HCC) Yes Overview Addendum 05/12/2024 12:27 PM by Christi Sherman APRN 05/07 Duo nebs q6 SPO2 goal >88% On 4LNC 05/08 on 2LNC 05/09 on 2LNC +40 lasix 05/12 ongoing 3L NSTEMI (non-ST elevated myocardial infarction) (CMS/HCC) Yes Overview Addendum 05/11/2024 10:54 AM by Miguel Downey MD Diagnosed at OSH with elevated troponins of 0.05 to 0.23 to 0.16 Started on heparin drip DEPARTMENT SUPERVISOR, 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 Repeat troponins pending 05/07 [...] main artery stenosis Started on heparin drip DEPARTMENT SUPERVISOR, continue CT Surgery consulted CABG work-up pending [...] mg q6 COPD (chronic obstructive pulmonary disease) ([facility]) Yes Overview Addendum 05/12/2024 12:27 PM by Christi Sherman APRN 05/07 Duo nebs q6 SPO2 goal >88% On 4LNC 05/08 on 2LNC 05/09 on 2LNC +40 lasix 05/12 ongoing 3L NSTEMI (non-ST elevated myocardial infarction) ([facility]) Yes Overview Addendum 05/11/2024 10:54 AM by Miguel Downey MD Diagnosed at OSH with elevated troponins of 0.05 to 0.23 to 0.16 Started on heparin drip DEPARTMENT SUPERVISOR, 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 Repeat troponins pending 05/07 [...] with the patient, her family and the [facility] faculty Tere Snow MD, FACS exhibit display representative Trauma Acute Care Surgery * Consults - Rhona Abrams RN - 05/17/2024 2:15 PM EDTAssociated Order(s): IP CONSULT TO ADULT VASCULAR ACCESS TEAM Dulce Alamo DIESEL ENGINE OPERATOR reached out to [facility] due to pt transfer to ICU. DIESEL ENGINE OPERATOR states to hold on piccline due to fever and blood cxs redrawn. VAT asked DIESEL ENGINE OPERATOR to reorder when appropriate. * Clinician Note [...] which is disconnected and daughter Janeth, at [phone]. Left voicemail. Vat will continue to attempt to reach family for consent. Cally DIESEL ENGINE OPERATOR aware, picc on hold pending consent. * [...] Value Units Date/Time Blood Culture (Aerobic/Anaerobet Set) [[id number]] Collected: 05/13/24 0978 Order Status: Completed Specimen: Blood from AC, [...] Weight: 61.1 kg (134 lb 12.8 oz) [place] body weight: 47.8 kg (105 lb 4.8 oz) Adjusted ideal body weight: 52.8 kg (116 lb 5.7 oz) (126.25%) of IBW Body mass index is 25.13 kg/m??. Adjusted wt: 50.9 kg (if over 125% of IBW) CENTRAL IV Access: Pending Estimated Nutritional Needs: HBE: 1153 Stress Factor: 1.2-1.4 Total Calories/day: 9962-4696 Protein (amino acids): 1.3-1.6 grams/kg Protein (Amino [...] Note Rere Hunter 53 y.o. female CSN: [id number] Admission: 05/01/2024 11:01 PM Primary Problem: CAD, [...] more detail. Pt has been referred to [facility]; liaison Prema following. No further SW concerns [...] COPD, and tobacco abuse.She initially presented to [facility], ruled in for NSTEMI, and underwent [...] atorvastatin and beta-stacey - Imaging uploaded to [employer] system and reviewed with Dr. Chery - [...] Note Rere Hunter 53 y.o. female CSN: [id number] Room/Bed 135/135A Nutrition evaluation type: follow-up Reason [...] (Room air) O2 Delivery Method: Nasal cannula Babcock Coma Scale Score: 15 Shaan Scale Score: [...] (Calculated): 25.13 Weight Evaluation: Overweight (BMI 25-29.9) [place] Body Weight (kg): 47.7 Percent [place] Body Weight: 126 Adjusted Body Weight (kg): 50.9 Estimated Needs: Metabolic Cart Study Results: Current Nutrition Intake: Diet Order: NPO Diet Texture: (-) Adult Carbohydrate Restriction: (-) Fat Restriction: (-) Percent Meals Eaten (%): (-) Diet Experience and Nutrition History: Diet Education Provided: Will monitor Pertinent home medications: reviewed Jewish needs: Nutrition Focused Physical Exam: Physical exam [...] Date Anxiety COPD (chronic obstructive pulmonary disease) ([facility]) 05/01/2024 Continue Duo nebs q6 SPO2 goal >88% Depression GERD (gastroesophageal reflux disease) 05/01/2024 Continue Protonix 40 mg daily On mechanically assisted ventilation ([facility]) 05/06/2024 Arrived to ICU intubated 05/07 extubated to 4LNC 05/08 resolved Tobacco use 05/01/2024 Screen Handler for smoking 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 Complicates all [...] CDI GI: distended. Rare bowel sounds SKIN: [place], warm, and dry. No rash, sores, or [...] Chloraseptic spray for throat pain Cardiothoracic Surgery [phone] * Significant Event - Tere Snow MD - 05/15/2024 10:00 PM EDT Pt feels better today. Having bowel function Abd: soft, no significant distention Ok for clamp trial SGE will follow for resuming of diet Tere Snow MD, FACS exhibit display representative Trauma Acute Care Surgery * Progress Notes - Heather Ram - 05/15/2024 12:47 PM EDT Case Management Adult Progress Note Rere Hunter 53 y.o. female CSN: [id number] Admission: 05/01/2024 11:01 PM Primary Problem: CAD, [...] Pt amenable to SW sending referral to [facility] and is agreeable to taking s dianna. SW sent referral to [facility], liaison Prema is following. No further SW [...] ?? Natural and processed cheeses such as Sri Lankan, blue, mozzarella, and Greek Meat and protein substitutes Special instructions: ?? [...] ?? Oat meal ?? Whole wheat ?? Sedan ?? Pumpernickel ?? White ?? Raisin ?? Crackers prepared without butter, lard, coconut, or palm oil ?? Dry cereals that contain allowed fats ?? Rice and pasta prepared with allowed fats ?? Egg noodles (limit to ?? cup per day) ?? Costa Rican ?? Iraqi ?? Nicaraguan muffins ?? Pancakes, waffles, biscuits, and cornbread made with allowed ingredients ?? Flat bread ?? Bla crackers ?? Matzoh crackers ?? Whole grain or enriched cereals prepared with allowed oils ?? Wheat germ Avoid: ?? Egg or cheese bread ?? Butter rolls ?? Commercially prepared products: biscuits, muffins, sweet rolls, cornbread, pancakes and waffles,icelandic toast, croissants ?? Noodles ?? Cheese crackers ?? Flavored crackers prepared with saturated fats ?? Any cereal prepared with saturated fat ?? Indian noodles ?? Rice and pasta prepared with eggs, cream, or high fat cheese Fruits Choose: ?? Any fresh, frozen, canned, or dried fruit or juice ?? Avocado Vegetables Choose: ?? Any fresh, frozen, or canned vegetables ?? Potatoes prepared with allowed fat ?? Olives (limit to 10 small or 5 large per day) Avoid: ?? Buttered, creamed, or fried vegetables ?? Luiv-b-gopff, commercially made ?? Vegetables prepared in a [...] sizes are listed below: ?? Nuts: The [place] [employer] Association recommends including 5 servings of [...] avocado oil, etc.: 1 tablespoon o The [place] Heart Association recommends limiting oils to 3 [...] ingredients ?? Sorbet ?? Ice milk ?? Lucile ?? Gum drops ?? Jelly beans ?? [...] saturated fats, cheese, and/or egg yolks ?? [place] chips ?? Potato chips and other snack [...] much from the food you eat. Use [employer] to Help Build Your Meals The New.netTracker can help you plan and track your [...] from the original note were not included. 37346 Recovery From Heart Surgery: The First Few [...] stop Last Reviewed Date: 2024 00:00:00 ?? 8813-8694 [employer]. All rights reserved. This information is not intended as a substitute for professional medical care. Always follow your healthcare professional's instructions. * Can Alex - Brooklyn Duron RN - 05/15/2024 10:45 AM EDT Images from the original note were not included. 35035 Eating Heart-Healthy Foods Eating has a big [...] darion. Last Reviewed Date: 2022 00:00:00 ?? 8564-2157 [employer]. All rights reserved. This information is not intended as a substitute for professional medical care. Always follow your healthcare professional's instructions. * [facility]ila [facility]LY [facility] - Brooklyn Duron RN - 05/15/2024 10:45 [...] from the original note were not included. 80788 After Bypass Surgery: Getting Up and Out [...] do. Last Reviewed Date: 2024 00:00:00 ?? 2923-0602 [employer]. All rights reserved. This information is not intended as a substitute for professional medical care. Always follow your healthcare professional's instructions. * Can KelleyFORMERLY [facility] - Brooklyn Duron RN - 05/15/2024 10:45 AM EDT Images from the original note were not included. 72312 After Bypass Surgery: Reaching, Bending, and Lifting [...] your shoulders and hips in line. ?? inside sales supervisor the object and hold it close [...] directions. Last Reviewed Date: 2024 00:00:00 ?? 3064-7397 [employer]. All rights reserved. This information is not intended as a substitute for professional medical care. Always follow your healthcare professional's instructions. * Discharge Instr - Other Orders - Brooklyn Duron RN - 05/15/2024 10:37 AM EDT Please arrive 30 minutes early for your appointment with Dr. Austin Prior to your appointment, go to the radiology department on the 1st floor of the [facility] near [facility] for a chest x-ray. Then go [...] your incisions. Do NOT lift, push or conductor pullman 5 pounds for six weeks. Do NOT [...] or concerns, please contact??? Brooklyn Duron RN [phone] Tuesday through Tuesday 7am- 3:30pm [facility] [phone] after 3:30 pm, weekends and holidays - ask for the CT surgeon architectural sales consultant. * Progress Notes - Pari Lindo PTA - 05/15/2024 9:18 AM EDT Physical Therapy Treatment Patient Name: Rere Hunter Today's Date: 05/15/2024 PT Discharge Recommendations: Acute rehab Equipment Recommended: Defer to facility Subjective The patient states, I am tired this morning. Participants in Care Family/Caregiver Present: No Acquisition Associate: Not Applicable Presentation Oxygen: None (Room air) Telemetry: Yes Lines and Tube: NG/OG [place] Sump 14 Fr Right nostril (Active) Peripheral [...] Transfer Exam: Sit to stand Level of [place]: Contact guard Physical/Nonphysical Assist: Verbal Cues, Set-up required Assistive Device: Rollator Transfer Exam: Stand to Sit Level of [place]: Contact guard Physical/Nonphysical Assist: Verbal Cues, Set-up required Assistive Device: Rollator Toilet Transfer Level of [place]: Minimum assist (75% patient's effort) Physical/Nonphysical Assist: [...] (Room air) Lines and Tubes: Telemetry NG/OG [place] Sump 14 Fr Right nostril (Active) Peripheral [...] Mobility Exam: Supine to Sit Level of [place]: Moderate assist (50% patient's effort) Physical/Nonphysical Assist: Verbal Cues, Nonverbal cues (demo/gestures), Moderate cues, HOB elevated Transfers Transfer Exam: Sit to stand Level of [place]: Contact guard Physical/Nonphysical Assist: Nonverbal cues (demo/gestures), Verbal Cues, Minimal cues Assistive Device: Rollator Transfer Exam: Stand to Sit Level of [place]: Contact guard Physical/Nonphysical Assist: Nonverbal cues (demo/gestures), [...] Anterior;Left;Proximal Forearm 05/12/24 0840 Forearm 2 NG/OG [place] Sump 14 Fr Right nostril 05/11/24 2300 Right nostril 2 GCS: Babcock Coma Scale Score: 15 Review of Systems [...] main artery stenosis Started on heparin drip DEPARTMENT SUPERVISOR, continue CT Surgery consulted CABG work-up pending [...] mg q6 COPD (chronic obstructive pulmonary disease) ([facility]/HCC) Yes Overview Addendum 05/12/2024 12:27 PM by Christi Sherman APRN 05/07 Duo nebs q6 SPO2 goal >88% On 4LNC 05/08 on 2LNC 05/09 on 2LNC +40 lasix 05/12 ongoing 3L NSTEMI (non-ST elevated myocardial infarction) (CMS/[facility]) Yes Overview Addendum 05/11/2024 10:54 AM by Miguel Downey MD Diagnosed at OSH with elevated troponins of 0.05 to 0.23 to 0.16 Started on heparin drip DEPARTMENT SUPERVISOR, 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 Repeat troponins pending 05/07 [...] monitor bowel function Tere Snow MD, FACS exhibit display representative Trauma Acute Care Surgery * Progress Notes - Heather Ram - 05/14/2024 8:48 AM EDT Case Management Adult Progress Note Rere Hunter 53 y.o. female CSN: [id number] Admission: 05/01/2024 11:01 PM Primary Problem: CAD, [...] planning and needs as appropriate. Heather Ram, MERCHANDISE PLANNER * Progress Notes - Edson Reed MD [...] swish and swallow. Edited by: Christi Sherman, ADMISSIONS SUPERVISOR at 05/13/2024 1232 Lines/Drains/Tubes: Patient Lines/Drains/Airways Status Active Active LDAs Name Placement date Placement time Site Days Peripheral IV 05/12/24 Anterior;Left Forearm 05/12/24 0030 Forearm 1 Peripheral IV 05/12/24 Anterior;Left;Proximal Forearm 05/12/24 0840 Forearm 1 Peripheral IV 05/12/24 Anterior;Proximal;Right Forearm 05/12/24 1600 Forearm less than 1 NG/OG [place] Sump 14 Fr Right nostril 05/11/24 2300 Right nostril 1 GCS: Babcock Coma Scale Score: 15 Review of Systems [...] main artery stenosis Started on heparin drip DEPARTMENT SUPERVISOR, continue CT Surgery consulted CABG work-up pending [...] last night COPD (chronic obstructive pulmonary disease) ([facility]) Yes Overview Addendum 05/12/2024 12:27 PM by Christi Sherman, ADMISSIONS SUPERVISOR 05/07 Duo nebs q6 SPO2 goal >88% On 4LNC 05/08 on 2LNC 05/09 on 2LNC +40 lasix 05/12 ongoing 3L NSTEMI (non-ST elevated myocardial infarction) (CMS/HCC) Yes Overview Addendum 05/11/2024 10:54 AM by Miguel Downey MD Diagnosed at OSH with elevated troponins of 0.05 to 0.23 to 0.16 Started on heparin drip DEPARTMENT SUPERVISOR, 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 Repeat troponins pending 05/07 [...] Intake/Output Summary (Last 24 hours) at 05/13/2024 0925 Last data filed at 05/13/2024 0651 Gross [...] Jayson Estrada MD PGY-3 General Surgery Pager #[phone] Cosigned by Rebel Ayala MD at 05/13/2024 [...] from the original note were not included. [facility] Department of Surgery Division of [...] (40 mg) by mouth. 12/30/22 Yes Jaden Crorea MD Combivent Respimat 20-100 MCG/ACT inhaler 03/07/23 [...] assistance is needed please page us at [phone]. Medical Problems Problem List * (Principal) CAD, multiple vessel Overview Addendum 05/12/2024 12:26 PM by Christi Sherman APRN Patient presented to OSH on 05/01/24 c/o chest pain Loaded with ASA & Plavix, continue LHC on 05/01/24 showed critical distal left main artery stenosis Started on heparin drip DEPARTMENT SUPERVISOR, continue CT Surgery consulted CABG work-up pending [...] last night COPD (chronic obstructive pulmonary disease) ([facility]) Overview Addendum 05/12/2024 12:27 PM by Christi Sherman APRN 05/07 Duo nebs q6 SPO2 goal >88% On 4LNC 05/08 on 2LNC 05/09 on 2LNC +40 lasix 05/12 ongoing 3L NSTEMI (non-ST elevated myocardial infarction) ([facility]) Overview Addendum 05/11/2024 10:54 AM by Miguel Downey MD Diagnosed at OSH with elevated troponins of 0.05 to 0.23 to 0.16 Started on heparin drip DEPARTMENT SUPERVISOR, 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 Repeat troponins pending 05/07 [...] Date Anxiety COPD (chronic obstructive pulmonary disease) ([facility]) 05/01/2024 Continue Duo nebs q6 SPO2 goal >88% Depression GERD (gastroesophageal reflux disease) 05/01/2024 Continue Protonix 40 mg daily On mechanically assisted ventilation ([facility]) 05/06/2024 Arrived to ICU intubated 05/07 extubated to 4LNC 05/08 resolved Tobacco use 05/01/2024 Screen Handler for smoking 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 Complicates all [...] 05/12/24 0840 Forearm less than 1 NG/OG [place] Sump 14 Fr Right nostril 05/11/24 2300 [...] main artery stenosis Started on heparin drip DEPARTMENT SUPERVISOR, continue CT Surgery consulted CABG work-up pending [...] last night COPD (chronic obstructive pulmonary disease) ([facility]/HCC) Yes Overview Addendum 05/12/2024 12:27 PM by Christi Sherman, ARASH 05/07 Duo nebs q6 SPO2 goal >88% On 4LNC 05/08 on 2LNC 05/09 on 2LNC +40 lasix 05/12 ongoing 3L NSTEMI (non-ST elevated myocardial infarction) ([facility]/HCC) Yes Overview Addendum 05/11/2024 10:54 AM by Miguel Downey MD Diagnosed at OSH with elevated troponins of 0.05 to 0.23 to 0.16 Started on heparin drip DEPARTMENT SUPERVISOR, 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 Repeat troponins pending 05/07 [...] Note Rere Hunter 53 y.o. female CSN: [id number] Room/Bed 217/217A Nutrition evaluation type: follow-up Reason [...] (Calculated): 26.3 Weight Evaluation: Overweight (BMI 25-29.9) [place] Body Weight (kg): 47.7 Percent [place] Body Weight: 132 Adjusted Body Weight (kg): 52 Estimated Needs: Metabolic Cart Study Results: Current Nutrition Intake: Diet Order: Adult Diet Diet Texture: Clear liquid Adult Carbohydrate Restriction: Consistent CHO 2 (7284-3597 [place], 80 g/meal) Fat Restriction: Cardiac Percent Meals Eaten (%): 0% 05/07-05/10 Diet Experience and Nutrition History: Diet Education Provided: Will monitor Pertinent home medications: reviewed Jewish needs: Nutrition Focused Physical Exam: Physical exam [...] Date Anxiety COPD (chronic obstructive pulmonary disease) ([facility]) 05/01/2024 Continue Duo nebs q6 SPO2 goal >88% Depression GERD (gastroesophageal reflux disease) 05/01/2024 Continue Protonix 40 mg daily On mechanically assisted ventilation ([facility]) 05/06/2024 Arrived to ICU intubated 05/07 extubated to [facility] 05/08 resolved Tobacco use 05/01/2024 Screen Handler for smoking 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 Complicates all [...] hospital. Participants in Care Family/Caregiver Present: No Acquisition Associate: Not Applicable Presentation Oxygen Therapy: Supplemental oxygen O2 Delivery Method: Nasal cannula O2 Flow Rate (L/min): 3 L/min Lines and Tubes: Telemetry Pacer Wires (Active) NG/OG [place] Sump Nasogastric 14 Fr Right nostril (Active) [...] Mobility Exam: Sit to Supine Level of [place]: Moderate assist (50% patient's effort) Physical/Nonphysical Assist: HOB elevated, Nonverbal cues (demo/gestures), Verbal Cues, Moderate cues, Additional assist utilized for safety Transfers Transfer Exam: Sit to stand Level of [place]: Contact guard Physical/Nonphysical Assist: Nonverbal cues (demo/gestures), Verbal Cues, Minimal cues Assistive Device: Rollator Transfer Exam: Stand to Sit Level of [place]: Contact guard Physical/Nonphysical Assist: Nonverbal cues (demo/gestures), Verbal Cues, Minimal cues Assistive Device: Rollator Toilet Transfer Level of [place]: Minimum assist (75% patient's effort) Physical/Nonphysical Assist: [...] PM. * Progress Notes - Pari Lindo DEPARTMENT SUPERVISOR - 05/11/2024 11:02 AM EDT Physical Therapy Treatment Patient Name: Rere Hunter Today's Date: 05/11/2024 PT Discharge Recommendations: Acute rehab Equipment Recommended: Defer to facility Subjective The patient states, I am so tired. Participants in Care Family/Caregiver Present: No Acquisition Associate: Not Applicable Presentation Oxygen: Supplemental oxygen Nasal cannula 3 L/min Telemetry: Yes Lines and Tube: Pacer Wires (Active) NG/OG [place] Sump Nasogastric 14 Fr Right nostril (Active) [...] sequencing. Bed Mobility Exam: Scooting/Bridging Level of [place]: Dependent (to scoot to head of bed) Physical/Nonphysical Assist: Additional assist utilized for safety, Verbal Cues, Set-up required Assistive Device: Other (draw sheet) Bed Mobility Exam: Sit to Supine Level of [place]: Moderate assist (50% patient's effort) Physical/Nonphysical Assist: Additional assist utilized for safety, Verbal Cues, Set-up required Transfers Transfer Intervention: Verbal cues provided for correct bilateral hand and foot placement during sit to stand transfers. Transfer Exam: Sit to stand Level of [place]: Contact guard Physical/Nonphysical Assist: Verbal Cues, Set-up required Assistive Device: Rollator Transfer Exam: Stand to Sit Level of [place]: Contact guard Physical/Nonphysical Assist: Verbal Cues, Set-up required Assistive Device: Rollator Toilet Transfer Level of [place]: Minimum assist (75% patient's effort) Physical/Nonphysical Assist: [...] Right;Upper Arm 05/09/24 1011 Arm 2 NG/OG [place] Sump Nasogastric 14 Fr Right nostril 05/09/24 [...] Right;Upper Arm 05/09/24 1011 Arm 1 NG/OG [place] Sump Nasogastric 14 Fr Right nostril 05/09/24 1519 Right nostril less than 1 Y Chest Tube 1 and 2 Right Mediastinal 32 Fr. Left Mediastinal 32 Fr. 05/06/241920 -- 3 Y Chest Tube 3 and 4 Pleural 32 Fr. Pleural 32 Fr. 05/06/242130 -- 3 Negative Pressure Wound Therapy Sternum 05/06/241939 Sternum 3 ROS: GCS: Babcock Coma Scale Score: 14 Review of Systems [...] main artery stenosis Started on heparin drip DEPARTMENT SUPERVISOR, continue CT Surgery consulted CABG work-up pending [...] last night COPD (chronic obstructive pulmonary disease) ([facility]) Yes Overview Addendum 05/11/2024 10:53 AM by Miguel Downey MD 05/07 Duo nebs q6 SPO2 goal >88% On 4LNC 05/08 on 2LNC 05/09 on 2LNC +40 lasix 05/10 3lNC 05/11 3lNC CXR reviewed NSTEMI (non-ST elevated myocardial infarction) ([facility]) Yes Overview Addendum 05/11/2024 10:54 AM by Miguel Downey MD Diagnosed at OSH with elevated troponins of 0.05 to 0.23 to 0.16 Started on heparin drip DEPARTMENT SUPERVISOR, 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 Repeat troponins pending 05/07 [...] Right;Upper Arm 05/09/24 1011 Arm 1 NG/OG [place] Sump Nasogastric 14 Fr Right nostril 05/09/24 1519 Right nostril less than 1 Y Chest Tube 1 and 2 Right Mediastinal 32 Fr. Left Mediastinal 32 Fr. 05/06/241 -- 3 Y Chest Tube 3 and 4 Pleural 32 Fr. Pleural 32 Fr. 05/06/242130 -- 3 Negative Pressure Wound Therapy Sternum 05/06/24 1940 Sternum 3 ROS: GCS: Babcock Coma Scale Score: 14 Review of Systems [...] main artery stenosis Started on heparin drip DEPARTMENT SUPERVISOR, continue CT Surgery consulted CABG work-up pending [...] 05/10 3lNC NSTEMI (non-ST elevated myocardial infarction) ([facility]) Yes Overview Addendum 05/10/2024 12:59 PM by Miguel Downey MD Diagnosed at OSH with elevated troponins of 0.05 to 0.23 to 0.16 Started on heparin drip DEPARTMENT SUPERVISOR, 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 Repeat troponins pending 05/07 [...] and Tubes: Telemetry Pacer Wires (Active) NG/OG [place] Sump Nasogastric 14 Fr Right nostril (Active) [...] Transfer Exam: Sit to stand Level of [place]: Minimum assist (75% patient's effort) (x3 reps) Physical/Nonphysical Assist: Verbal Cues, Nonverbal cues (demo/gestures) Transfer Exam: Stand to Sit Level of [place]: Minimum assist (75% patient's effort) Physical/Nonphysical Assist: Verbal Cues, Nonverbal cues (demo/gestures) Transfer Exam: Bed to Chair/Chair to Bed Level of [place]: Minimum assist (75% patient's effort) Physical/Nonphysical Assist: [...] Note Rere Hunter 53 y.o. female CSN: [id number] Admission: 05/01/2024 11:01 PM Primary Problem: CAD, [...] seen and examined with resident physicians and [facility]. Morning chest x- ray reviewed. Labs in [...] and Tubes: Telemetry Pacer Wires (Active) NG/OG [place] Sump Nasogastric 14 Fr Right nostril (Active) [...] Subjective I think I'm at home in [place]. Pt and RN agreeable to PT treatment session this date. Participants in Care Family/Caregiver Present: No Acquisition Associate: Not Applicable Presentation Oxygen Therapy: Supplemental oxygen [...] Mobility Bed Mobility Exam: Rolling/Turning Level of [place]: Moderate assist (50% patient effort) Physical/Nonphysical Assist: Verbal Cues, Nonverbal cues (demo/gestures), Additional assist utilized for safety, Moderate cues Bed Mobility Exam: Scooting/Bridging Level of [place]: Maximum assist (25% patient's effort) Physical/Nonphysical Assist: Verbal Cues, Minimal cues, Additional assist utilized for safety Bed Mobility Exam: Supine to Sit Level of [place]: Moderate assist (50% patient's effort) Physical/Nonphysical Assist: Verbal Cues, Nonverbal cues (demo/gestures), Moderate cues, HOB elevated Transfers Transfer Exam: Sit to stand Level of [place]: Minimum assist (75% patient's effort) Physical/Nonphysical Assist: Verbal Cues, Moderate cues, Additional assist utilized for safety, Nonverbal cues (demo/gestures) Assistive Device: Hand held assist Transfer Exam: Stand to Sit Level of [place]: Minimum assist (75% patient's effort) Physical/Nonphysical Assist: Verbal Cues, Additional assist utilized for safety, Moderate cues, Nonverbal cues (demo/gestures) Assistive Device: Hand held assist Transfer Exam: Bed to Chair/Chair to Bed Level of [place]: Minimum assist (75% patient's effort) Physical/Nonphysical Assist: [...] Therapy Sternum 05/06/241939 Sternum 2 ROS: GCS: Babcock Coma Scale Score: 14 Review of Systems [...] main artery stenosis Started on heparin drip DEPARTMENT SUPERVISOR, continue CT Surgery consulted CABG work-up pending [...] well overnight COPD (chronic obstructive pulmonary disease) ([facility]) Yes Overview Addendum 05/09/2024 11:13 AM by Miguel Downey MD 05/07 Duo nebs q6 SPO2 goal >88% On 4LNC 05/08 on 2LNC 05/09 on 2LNC +40 lasix NSTEMI (non-ST elevated myocardial infarction) ([facility]) Yes Overview Addendum 05/09/2024 11:14 AM by Miguel Downey MD Diagnosed at OSH with elevated troponins of 0.05 to 0.23 to 0.16 Started on heparin drip DEPARTMENT SUPERVISOR, 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 Repeat troponins pending 05/07 [...] and depression COPD (chronic obstructive pulmonary disease) ([facility]/HCC) NSTEMI (non-ST elevated myocardial infarction) ([facility]) GERD (gastroesophageal reflux disease) Prolonged Q-T interval on ECG Hypercholesteremia Hypoalphalipoproteinemia Overweight THOM (obstructive sleep apnea) S/P CABG x 4 On mechanically assisted ventilation ([facility]) Low cardiac output syndrome ([facility]) Hypertension Hyperkalemia Cardiac volume overload 53 yrs [...] asked about her family and her home. Green End Worker provided pastoral support. * Progress Notes - [...] Therapy Sternum 05/06/241939 Sternum 1 ROS: GCS: Babcock Coma Scale Score: 14 Review of Systems [...] 1 VIEW COMPARISON: 05/07/2024 FINDINGS: Interval extubation. [place]-Ellis catheter has been removed. Right IJ introducer [...] main artery stenosis Started on heparin drip DEPARTMENT SUPERVISOR, continue CT Surgery consulted CABG work-up pending 05/07 POD 1 4vCABG 05/[address] recs ASA BB statin Anxiety and depression Yes Overview Addendum 05/08/2024 1:29 PM by Miguel Downey MD 05/07 Continue home bupropion XL 300 mg daily Continue home citalopram 40 mg daily Continue PRN hydroxyzine 25 mg q6 05/08 continue home meds COPD (chronic obstructive pulmonary disease) ([facility]) Yes Overview Addendum 05/08/2024 1:29 PM by Miguel Downey MD 05/07 Duo nebs q6 SPO2 goal >88% On 4LNC 05/08 on 2LNC NSTEMI (non-ST elevated myocardial infarction) ([facility]) Yes Overview Addendum 05/07/2024 10:06 AM by Miguel Downey MD Diagnosed at OSH with elevated troponins of 0.05 to 0.23 to 0.16 Started on heparin drip DEPARTMENT SUPERVISOR, 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 Repeat troponins pending 05/07 [...] Arrived to ICU intubated 05/07 extubated to [facility] 05/08 resolved Low cardiac output syndrome (CMS/HCC) [...] and depression COPD (chronic obstructive pulmonary disease) ([facility]/HCC) NSTEMI (non-ST elevated myocardial infarction) ([facility]) GERD (gastroesophageal reflux disease) Prolonged Q-T interval on ECG Hypercholesteremia Hypoalphalipoproteinemia Overweight THOM (obstructive sleep apnea) S/P CABG x 4 On mechanically assisted ventilation ([facility]/HCC) Low cardiac output syndrome ([facility]/HCC) Hypertension Hyperkalemia Cardiac volume overload 53 yrs [...] at this time. * Progress Notes - Diivna Yousif R - 05/07/2024 1:43 PM EDT Physical Therapy Evaluation Patient Name: Rere Hunter Today's Date: 05/07/2024 PT Discharge Recommendations: Acute rehab Equipment Recommended: Defer to facility History Rere Hunter is 53 y.o. female admitted 05/01/2024 for work-up of CAD, multiple vessel. Problem List Active Hospital Problems Diagnosis Date Noted S/P CABG x 4 05/06/2024 On mechanically assisted ventilation ([facility]) 05/06/2024 Low cardiac output syndrome ([facility]) 05/06/2024 Hypertension 05/06/2024 Hyperkalemia 05/06/2024 Cardiac volume overload 05/06/2024 Prolonged Q-T interval on ECG 05/04/2024 Hypercholesteremia 05/04/2024 Hypoalphalipoproteinemia 05/04/2024 Overweight 05/04/2024 THOM (obstructive sleep apnea) 05/04/2024 Anxiety and depression 05/01/2024 COPD (chronic obstructive pulmonary disease) ([facility]) 05/01/2024 CAD, multiple vessel 05/01/2024 NSTEMI (non-ST elevated myocardial infarction) ([facility]) 05/01/2024 GERD (gastroesophageal reflux disease) 05/01/2024 Procedures 05/06/2024 Procedure(s): CABG, 2 OR MORE VESSELS Past Medical History Patient has a past medical history of Anxiety, COPD (chronic obstructive pulmonary disease) ([facility]) (05/01/2024), Depression, GERD (gastroesophageal reflux disease) (05/01/2024), [...] Mobility Bed Mobility Exam: Scooting/Bridging Level of [place]: Maximum assist (25% patient's effort) (to scoot to EOB while seated) Physical/Nonphysical Assist: Nonverbal cues (demo/gestures), Verbal Cues Bed Mobility Exam: Supine to Sit Level of [place]: Maximum assist (25% patient's effort) Physical/Nonphysical Assist: Additional assist utilized for safety, Nonverbal cues (demo/gestures),Verbal Cues, HOB elevated Transfers Transfer Exam: Sit to stand Level of [place]: Minimum assist (75% patient's effort) Physical/Nonphysical Assist: Verbal Cues, Nonverbal cues (demo/gestures), 1 person + 1 person to manage equipment Transfer Exam: Stand to Sit Level of [place]: Minimum assist (75% patient's effort) Physical/Nonphysical Assist: Verbal Cues, Nonverbal cues (demo/gestures), 1 person + 1 person to manage equipment Transfer Exam: Bed to Chair/Chair to Bed Level of [place]: Minimum assist (75% patient's effort) Physical/Nonphysical Assist: [...] hypotension. Standardized Assessments Standardized Assessments Standardized Assessments: [facility] 6-Clicks Mobility Assessment [facility] 6-Clicks Mobility Assessment Difficulty patient has turning [...] 3-5 steps with a railing?: A lot [facility] 6-Clicks Mobility Assessment Total : 15 Assessment [...] x 4 05/06/2024 On mechanically assisted ventilation ([facility]) 05/06/2024 Low cardiac output syndrome ([facility]) 05/06/2024 Hypertension 05/06/2024 Hyperkalemia 05/06/2024 Cardiac volume overload 05/06/2024 Prolonged Q-T interval on ECG 05/04/2024 Hypercholesteremia 05/04/2024 Hypoalphalipoproteinemia 05/04/2024 Overweight 05/04/2024 THOM (obstructive sleep apnea) 05/04/2024 Anxiety and depression 05/01/2024 COPD (chronic obstructive pulmonary disease) ([facility]) 05/01/2024 CAD, multiple vessel 05/01/2024 NSTEMI (non-ST elevated myocardial infarction) ([facility]) 05/01/2024 GERD (gastroesophageal reflux disease) 05/01/2024 Procedures 05/06/2024 Procedure(s): CABG, 2 OR MORE VESSELS Past Medical History Patient has a past medical history of Anxiety, COPD (chronic obstructive pulmonary disease) ([facility]) (05/01/2024), Depression, GERD (gastroesophageal reflux disease) (05/01/2024), Tobacco use (05/01/2024), and Tremor (05/01/2024). Past Surgical History Patient has a past surgical history that includes section, classic; Cholecystectomy; Shoulder surgery; Abdominal adhesion surgery; and Hand surgery (Right). Precautions Medical Precautions: Fall precautions, Sternal Subjective I feel dizzy. Participants in Care Family/Caregiver Present: No Acquisition Associate: Not Applicable Presentation Oxygen Therapy: Supplemental oxygen [...] Mobility Bed Mobility Exam: Scooting/Bridging Level of [place]: Maximum assist (25% patient's effort) (to scoot to EOB while seated) Physical/Nonphysical Assist: Nonverbal cues (demo/gestures), Verbal Cues Bed Mobility Exam: Supine to Sit Level of [place]: Maximum assist (25% patient's effort) Physical/Nonphysical Assist: Additional assist utilized for safety, Nonverbal cues (demo/gestures),Verbal Cues, HOB elevated Transfers Transfer Exam: Sit to stand Level of [place]: Minimum assist (75% patient's effort) Physical/Nonphysical Assist: Verbal Cues, Nonverbal cues (demo/gestures), 1 person + 1 person to manage equipment Transfer Exam: Stand to Sit Level of [place]: Minimum assist (75% patient's effort) Physical/Nonphysical Assist: Verbal Cues, Nonverbal cues (demo/gestures), 1 person + 1 person to manage equipment Transfer Exam: Bed to Chair/Chair to Bed Level of [place]: Minimum assist (75% patient's effort) Physical/Nonphysical Assist: [...] from EOB with min assist x2 using TECHNICAL SUPERVISOR bilaterally and mod cues. Pt side stepped to the chair with min assist x2 using TECHNICAL SUPERVISOR bilaterally and mod cues for safety/balance. See vitals section above for explanation as to why we deferred further functional mobility. Standardized Assessments [facility] 6-Click Daily Activities Help from Other: Don/Doff Regular Lower Body Clothings: A lot Help From Other: Bathing: A lot Help From Other: Toileting: A lot Help From Other: Don/Doff Upper Body Clothings: Little Help From Other: Grooming: Little Help From Other: Eating Meals: Little [facility] 6 Click - Daily Activities Score: 15 [...] Note Rere Hunter 53 y.o. female CSN: [id number] Room/Bed 217/217A Nutrition evaluation type: assessment Reason [...] Supplemental oxygen O2 Delivery Method: Nasal cannula Babcock Coma Scale Score: 11 [place] Scale Score: [...] (Calculated): 25.46 Weight Evaluation: Overweight (BMI 25-29.9) [place] Body Weight (kg): 47.7 Percent [place] Body Weight: 128 Adjusted Body Weight (kg): 51 Estimated Needs: Metabolic Cart Study Results: Current Nutrition Intake: Diet Order: Adult Diet Diet Texture: Clear liquid Adult Carbohydrate Restriction: Consistent CHO 2 ([id number] [place], 80 g/meal) Fat Restriction: Cardiac Diet Experience and Nutrition History: Diet Education Provided: Will monitor Pertinent home medications: reviewed Jewish needs: Nutrition Focused Physical Exam: Physical exam [...] Date Anxiety COPD (chronic obstructive pulmonary disease) ([facility]) 05/01/2024 Continue Duo nebs q6 SPO2 goal >88% Depression GERD (gastroesophageal reflux disease) 05/01/2024 Continue Protonix 40 mg daily Tobacco use 05/01/2024 Screen Handler for smoking 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 Complicates all [...] main artery stenosis Started on heparin drip DEPARTMENT SUPERVISOR, continue CT Surgery consulted CABG work-up pending 05/07 POD 1 4vCABG Anxiety and depression Yes Overview Addendum 05/07/2024 10:05 AM by Miguel Downey MD 05/07 Continue home bupropion XL 300 mg daily Continue home citalopram 40 mg daily Continue PRN hydroxyzine 25 mg q6 COPD (chronic obstructive pulmonary disease) ([facility]) Yes Overview Addendum 05/07/2024 10:06 AM by Miguel Downey MD 05/07 Duo nebs q6 SPO2 goal >88% On 4LNC NSTEMI (non-ST elevated myocardial infarction) ([facility]) Yes Overview Addendum 05/07/2024 10:06 AM by Miguel Downey MD Diagnosed at OSH with elevated troponins of 0.05 to 0.23 to 0.16 Started on heparin drip DEPARTMENT SUPERVISOR, 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 Repeat troponins pending 05/07 [...] block (epi .03) On mechanically assisted ventilation ([facility]) Not Applicable Overview Addendum 05/07/2024 10:09 AM [...] INCISIONS: Sternum - wound vac Leg - yranne bandages c/d/i Intake/Output Intake/Output Summary (Last 24 [...] and depression COPD (chronic obstructive pulmonary disease) ([facility]) Tobacco use NSTEMI (non-ST elevated myocardial infarction) ([facility]) GERD (gastroesophageal reflux disease) Leukocytosis Essential tremor Thrombocytosis Hypocalcemia Prolonged Q-T interval on ECG Hyperlipidemia Hypercholesteremia Hypertriglyceridemia Hypoalphalipoproteinemia Overweight THOM (obstructive sleep apnea) S/P CABG x 4 On mechanically assisted ventilation ([facility]) Low cardiac output syndrome ([facility]) Hypertension Hyperkalemia Cardiac volume overload 53 yrs [...] Progress Note Rere Hunter 53 y.o. female [facility]: [id number] Admission: 05/01/2024 11:01 PM Primary Problem: CAD, [...] Date Anxiety COPD (chronic obstructive pulmonary disease) ([facility]) 05/01/2024 Depression GERD (gastroesophageal reflux disease) 05/01/2024 [...] trachea.Bilateral chest tubes, mediastinal drain, right IJ [place]- Ellis catheter with the tip overlying the [...] main artery stenosis Started on heparin drip DEPARTMENT SUPERVISOR, continue CT Surgery consulted CABG work-up pending Anxiety and depression Yes Overview Signed 05/01/2024 11:34 PM by Marylu Carvajal APRN, DNP Continue home bupropion XL 300 mg daily Continue home citalopram 40 mg daily Continue PRN hydroxyzine 25 mg q6 COPD (chronic obstructive pulmonary disease) ([facility]/HCC) Yes Overview Addendum 05/01/2024 11:32 PM by Marylu Carvajal APRN, DNP Continue Duo nebs q6 SPO2 goal >88% Tobacco use Yes Overview Signed 05/01/2024 8:37 PM by Marylu Carvajal APRN, DNP Screen Handler for smoking 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 Complicates all aspects of care and recovery NSTEMI (non-ST elevated myocardial infarction) (CMS/HCC) Yes Overview Addendum 05/01/2024 8:41 PM by Marylu Carvajal APRN, DNP Diagnosed at OSH with elevated troponins of 0.05 to 0.23 to 0.16 Started on heparin drip DEPARTMENT SUPERVISOR, 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 Repeat troponins pending GERD (gastroesophageal reflux disease) Yes Overview Signed 05/01/2024 11:32 PM by Carvajal, Marylu H, ADMISSIONS SUPERVISOR, DNP Continue Protonix 40 mg daily Leukocytosis [...] Applicable Overview Signed 05/06/2024 10:07 PM by Cdyney Luu MD Arrived to ICU intubated Low cardiac output syndrome ([facility]/HCC) Unknown Overview Signed 05/06/2024 10:08 PM by [...] CORONARY ARTERY BYPASS GRAFTING: Date: 05/06/2024 Location: [place] [facility] Name: Rere Hunter, : 1970, Pre-operative [...] [place] - Primary * [facility] Assisting from skin incision until decannulation, no qualified resident present for the part of the operation. Dr. Andrew Wick assisted on the sternotomy closure and soft tissue closure. Anesthesia: General ASA Class: IV Indication: Severe symptomatic coronary artery disease. Brief History: 53-year-old lady with the above-mentioned medical history that includes extensive history of smoking and COPD who was admitted with non ST elevation AR found to have severe three-vessel coronary artery [...] procedure including bleeding, infection, poor wound healing, AR, stroke, injury to any organs in the [...] the CHOWDARY graft but at that time JEESNIA graft was too short to reach heart [...] midnight. Andrew Hull MD Cardiothoracic Surgery Pager: [phone] * Significant Event - Trinity Yousif APRN [...] placed. NPO after MN. CT surgery pager [phone] * Progress Notes - Trinity Yousif APRN [...] mL, Intravenous, q12h heparin - COM Adult ACS/AR Protocol - MAR calculator by anti-Xa, 0-35 [...] and tobacco abuse. She initially presented to [facility]. She ruled in for NSTEMI and [...] Leukocytosis (POA) - possible reactive secondary to AR - WBC 12.8, afebrile - continue to [...] for CABG with Dr. Austin. Cardiothoracic Surgery [phone] Cosigned by Maite Austin MD at 05/05/2024 [...] procedure including bleeding, infection, poor wound healing, AR, stroke, injury to any organs in the [...] [Held by provider] heparin - COM Adult ACS/AR Protocol - MAR calculator by anti- Xa, [...] and tobacco abuse. She initially presented to [facility]. She ruled in for NSTEMI and [...] Leukocytosis (POA) - possible reactive secondary to AR - WBC 12.8, afebrile - continue to [...] Continue current plan of care. Cardiothoracic Surgery [phone] * Care Plan - Maite Paulson RN [...] mL, Intravenous, q12h heparin - COM Adult ACS/AR Protocol - MAR calculator by anti-Xa, 0-35 [...] statin Leukocytosis - possible reactive secondary to AR - afebrile - monitor COPD - Duonebs [...] Hold heparin gtt at 4am Cardiothoracic Surgery [phone] * Progress Notes - Annika Perez RN - 05/03/2024 9:40 AM EDT Case Management Adult Progress Note Rere Hunter 53 y.o. female CSN: [id number] Admission: 05/01/2024 11:01 PM Primary Problem: CAD, [...] mL, Intravenous, q12h heparin - COM Adult ACS/AR Protocol - APR calculator by anti-Xa, 0-35 Units/kg/hr, Last Rate: 13 Units/kg/hr (05/02/24 0737) PRN medications: calcium carbonate, heparin (porcine) - COM Adult ACS/AR Protocol - APR Re-bolus Calculator, hydrOXYzine HCl, [...] statin Leukocytosis - possible reactive secondary to AR - afebrile - monitor COPD - Duonebs [...] Note Rere Hunter 53 y.o. female CSN: [id number] Admission: 05/01/2024 11:01 PM Primary Problem: CAD, multiple vessel Wood Stainer reviewed chart and spoke with the patient at bedside to complete this Initial Case Management Assessment. PCP: Champ Quiroz MD Emergency Contact: Extended Emergency Contact Information Primary Emergency Contact: janeth mcknight Mobile Relation: Daughter Preferred language: Nicaraguan Acquisition Associate needed? No Insurance: Primary Visit Coverage Payer Plan Sponsor Code Group Number Group Name [facility] [employer] [employer] Primary Visit Coverage Subscriber Subscriber ID Subscriber Name Subscriber N Subscriber Address [id number] RERE HUNTER [id number] [place] [address] Patient information: Primary Caregiver: Self Support System: Immediate family Daily Living Activities: Functional Status: Independent Living Arrangements: Family Type of Residence: Private residence, Single Level [address] [place], [place] [id number] Current DME: Equipment Currently Used at Home: [...] Dialysis Services: n/a Living Will/Advance Directive/Power of Construction Sales Representative /Guardian: Unable to assess: No Have you [...] Deniesprior DME/HH/O2/HD/Abx. PCP is Dr. Quiroz in [place]. Has [employer] Medicaid insurance and uses the [facility]. Daughter to transport and assist as [...] [facility] after being transferred in from [facility] for possible surgical revascularization. Patient presented [...] depression 05/01/2024 COPD (chronic obstructive pulmonary disease) ([facility]) 05/01/2024 Tobacco use 05/01/2024 CAD, multiple vessel 05/01/2024 NSTEMI (non-ST elevated myocardial infarction) ([facility]) 05/01/2024 GERD (gastroesophageal reflux disease) 05/01/2024 Tremor 05/01/2024 HTN (hypertension) 05/01/2024 Medical History: Past Medical History: Diagnosis Date Anxiety COPD (chronic obstructive pulmonary disease) ([facility]) 05/01/2024 Continue Duo nebs q6 SPO2 goal >88% Depression GERD (gastroesophageal reflux disease) 05/01/2024 Continue Protonix 40 mg daily Tobacco use 05/01/2024 Screen Handler for smoking 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 Complicates all [...] A1c Leukocytosis - possible reactive secondary to AR - monitor COPD - Duonebs ordered Anxiety/Depression [...] depression, and tobacco use who presented to [facility] on 05/01/24 c/o chest pain. Loaded with ASA and Plavix. LHC at OSH performed today showed critical distal left main artery stenosis. Also diagnosed with NSTEMI at OSH with elevated troponins of 0.05 to 0.23 to 0.16. Placed on a heparin drip prior to arrival. Transferred to [facility] on 05/01/[address] [...] main artery stenosis Started on heparin drip DEPARTMENT SUPERVISOR, continue CT Surgery consulted CABG work-up pending Anxiety and depression Yes Overview Signed 05/01/2024 11:34 PM by Marylu Carvajal APRN, DNP Continue home bupropion XL 300 mg daily Continue home citalopram 40 mg daily Continue PRN hydroxyzine 25 mg q6 COPD (chronic obstructive pulmonary disease) ([facility]) Yes Overview Addendum 05/01/2024 11:32 PM by Marylu Carvajal APRN, DNP Continue Duo nebs q6 SPO2 goal >88% Tobacco use Yes Overview Signed 05/01/2024 8:37 PM by Marylu Carvajal APRN, DNP Screen Handler for smoking 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 Complicates all aspects of care and recovery NSTEMI (non-ST elevated myocardial infarction) ([facility]) Yes Overview Addendum 05/01/2024 8:41 PM by Marylu Carvajal APRN, DNP Diagnosed at OSH with elevated troponins of 0.05 to 0.23 to 0.16 Started on heparin drip DEPARTMENT SUPERVISOR, 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 Repeat troponins pending GERD [...] units/250 mL (100 unit/mL) infusion - Adult ACS/AR Protocol heparin (porcine) - COM Adult ACS/AR Protocol - MAR Re-bolus Calculator injection 0-3,700 [...] depression, and tobacco use who presented to [facility] on 05/01/24 c/o chest pain. Loaded with ASA and Plavix. LHC at OSH performed today showed critical distal left main artery stenosis. Also diagnosed with NSTEMI at OSH with elevated troponins of 0.05 to 0.23 to 0.16. Placed on a heparin drip prior to arrival. Transferred to [facility] on 05/01/24 for CABG evaluation by [facility] [...] Care Team (Late st Contact Info) Description 10/30/2024 10:45 AM EDT Office Visit [facility] General Surgery [address] [place] [address] Lidia Troncoso MD [address] [place] [address] Pending Results Name Type Priority [...] 06/18/2024, Expires: 12/04/2025 Discharge Ambulatory referral to [facility] Outpatient Referral Routine S/P CABG x 4 Expected: 06/16/2024 (Approximate), Expires: 12/16/2025 Discharge Ambulatory referral to NON [facility] Outpatient Referral Routine S/P CABG x 4 [...] repair for additional 4 weeks. Occupational Therapy Jd Dupree Patient will demonstrate correct performance of HEP [...] OXYGEN THERAPY Routine 05/30/2024 8:00 PM EDT LA NEGATIVE PRESSURE WOUND THERAPY DME >50 SQ [...] OXYGEN THERAPY Routine 05/28/2024 8:00 PM EDT LA NEGATIVE PRESSURE WOUND THERAPY DME >50 SQ CM Routine 05/28/2024 6:10 PM EDT Colon perforation (CMS/HCC) LA CRITICAL CARE, ADDL 30 MIN Routine 05/28/2024 [...] PEP THERAPY Routine 05/27/2024 2:00 PM EDT LA CRITICAL CARE, E/M 30-74 MINUTES Routine 05/27/2024 [...] BLOOD CELLS Routine 05/26/2024 4:16 PM EDT LA CRITICAL CARE, ADDL 30 MIN Routine 05/26/2024 [...] PEP THERAPY Routine 05/24/2024 2:00 PM EDT LA CRITICAL CARE, E/M 30-74 MINUTES Routine 05/24/2024 [...] PEP THERAPY Routine 05/23/2024 2:00 PM EDT LA PART REMOVAL COLON W ANASTOMOSIS 05/23/2024 1:16 PM EDT Colon perforation (CMS/HCC) LA EXPLORATORY OF ABDOMEN 05/23/2024 1:16 PM EDT [...] PANEL, PLASMA Timed 05/21/2024 12:09 PM EDT LA CRITICAL CARE, E/M 30-74 MINUTES Routine 05/21/2024 [...] PEP THERAPY Routine 05/20/2024 2:00 PM EDT LA CRITICAL CARE, E/M 30-74 MINUTES Routine 05/20/2024 [...] PEP THERAPY Routine 05/19/2024 6:00 PM EDT LA CRITICAL CARE, E/M 30-74 MINUTES Routine 05/19/2024 [...] VIEW Routine 05/19/2024 4:4 3 AM EDT LA CRITICAL CARE, ADDL 30 MIN Routine 05/19/2024 [...] UNSOLICITED RESULTS Routine 05/18/2024 5:55 PM EDT LA CRITICAL CARE, E/M 30-74 MINUTES Routine 05/18/2024 [...] 00 AM EDT MAGNESIUM, PLASMA Add-On 05/18/2024 4:00 AM EDT LIPASE, PLASMA Routine 05/18/2024 4:00 [...] PEP THERAPY Routine 05/17/2024 6:00 PM EDT LA CRITICAL CARE, E/M 30-74 MINUTES Routine 05/17/2024 [...] PANEL, PLASMA Routine 05/09/2024 11:30 AM EDT LA CRITICAL CARE, ADDL 30 MIN Routine 05/09/2024 [...] PEP THERAPY Routine 05/08/2024 2:00 PM EDT LA CRITICAL CARE, ADDL 30 MIN Routine 05/08/2024 [...] UNSOLICITED RESULTS Routine 05/07/2024 1:50 PM EDT LA CRITICAL CARE, ADDL 30 MIN Routine 05/07/2024 [...] ARTERIAL Pending Discharge 05/07/2024 12:45 AM EDT LA CRITICAL CARE, E/M 30-74 MINUTES Routine 05/06/2024 [...] MD on 06/21/2024 10:22 AM Trinity Yousif ADMISSIONS SUPERVISOR IMG XR PROCEDURES Final Result * XR [...] - 2.4 mg/dL 06/21/2024 3:52 AM EDT [facility] Blood Venous blood specimen / Unknown Venipuncture / Unknown 06/21/2024 2:59 AM EDT 06/21/2024 3:23 AM EDT Trinity Yousif APRN LAB BLOOD ORDERABLES Final Res ult [facility] [address] [place] [address] * (ABNORMAL) Comprehensive metabolic panel (06/21/2024 2:59 AM EDT) Glucose, Plasma 94 74 - 99 mg/dL 06/21/2024 3:52 AM EDT [facility] BUN, Plasma 4(L) 7 - 21 mg/dL 06/21/2024 3:52 AM EDT [facility] Creatinine, Plasma 0.63 0.60 - 1.10 mg/dL 06/21/2024 3:52 AM EDT [facility] BUN/Creatinine Ratio 6 06/21/2024 3:52 AM EDT [facility] Sodium, Plasma 131(L) 136 - 145 mmol/L 06/21/2024 3:52 AM EDT [facility] Potassium, Plasma 3.9 3.6 - 4.9 mmol/L 06/21/2024 3:52 AM EDT [facility] Chloride, Plasma 98 97 - 107 mmol/L 06/21/2024 3:52 AM EDT [facility] CO2, Plasma 25 22 - 29 mmol/L 06/21/2024 3:52 AM EDT [facility] Anion Gap 8 6 - 16 mmol/L 06/21/2024 3:52 AM EDT [facility] Total Calcium, Plasma 8.1(L) 8.9 - 10.2 mg/dL 06/21/2024 3:52 AM EDT [facility] Total Protein 6.7 6.3 - 7.9 g/dL 06/21/2024 3:52 AM EDT [facility] Albumin, Plasma 2.5(L) 3.5 - 5.2 g/dL 06/21/2024 3:52 AM EDT [facility] AST, Plasma 31 10 - 35 U/L 06/21/2024 3:52 AM EDT [facility] ALT, Plasma 54(H) 10 - 35 U/L 06/21/2024 3:52 AM EDT [facility] Alkaline Phosphatase, Plasma 155(H) 35 - 104 U/L 06/21/2024 3:52 AM EDT [facility] Total Bilirubin, Plasma 0.2 0.2 - 1.1 mg/dL 06/21/2024 3:52 AM EDT [facility] eGFRcr 105.6 mL/min/1.7 3m*2 06/21/2024 3:52 AM EDT [facility] Comment:Reported eGFRcr in m L/min/1.73m2 is based the CKD-EPI 2020 equation that does not use a race coefficient. Blood Venous blood specimen / Unknown Venipuncture / Unknown 06/21/2024 2:59 AM EDT 06/21/2024 3:23 AM EDT us Trinity Yousif APRN LAB BLOOD ORDERABLES Final Res ult [facility] [address] [place] [address] * (ABNORMAL) Hemogram (CBC) (06/21/2024 2:59 AM EDT) WBC Count 12.36(H) 3.70 - 10.30 10*3/uL LAB HEMATOLOGY METHOD 06/21/2024 3:32 AM EDT [facility] RBC Count 3.86(L) 3.90 - 5.20 10*6/uL LAB HEMATOLOGY METHOD 06/21/2024 3:32 AM EDT [facility] HGB 11.2 11.2 - 15.7 g/dL LAB HEMATOLOGY METHOD 06/21/2024 3:32 AM EDT [facility] HCT 34.9 34.0 - 45.0 % LAB HEMATOLOGY METHOD 06/21/2024 3:32 AM EDT [facility] Platelet Count 707(H) 155 - 369 10*3/uL LAB HEMATOLOGY METHOD 06/21/2024 3:32 AM EDT [facility] MCV 90 79 - 98 fL LAB HEMATOLOGY METHOD 06/21/2024 3:32 AM EDT [facility] MCH 29.0 26.0 - 32.0 pg LAB HEMATOLOGY METHOD 06/21/2024 3:32 AM EDT [facility] MCHC 32.1 30.7 - 35.5 g/dL LAB HEMATOLOGY METHOD 06/21/2024 3:32 AM EDT [facility] RDW 14.6(H) 11.5 - 14.5 % LAB HEMATOLOGY METHOD 06/21/2024 3:32 AM EDT [facility] MPV 8.6(L) 8.8 - 12.5 fL LAB HEMATOLOGY METHOD 06/21/2024 3:32 AM EDT [facility] nRBC 0.0 <=0.0 per 100 WBCs LAB HEMATOLOGY METHOD 06/21/2024 3:32 AM EDT [facility] Blood Venous blood specimen / Unknown Venipuncture / Unknown 06/21/2024 2:59 AM EDT 06/21/2024 3:24 AM EDT us Trinity Yousif ADMISSIONS SUPERVISOR LAB BLOOD ORDERABLES Final Res ult [facility] [address] [place] [address] * XR Abdomen 1 View (06/20/2024 5:30 [...] - 899 pg/mL 06/20/2024 6:04 AM EDT [facility] Blood Venous blood specimen / Unknown Venipuncture / Unknown 06/20/2024 4:45 AM EDT 06/20/2024 5:24 AM EDT Dulce Alamo APRN LAB BLOOD ORDERABLES Final R esult [facility] [address] [place] [address] * (ABNORMAL) Comprehensive Metabolic Panel, Plasma (06/20/2024 4:45 AM EDT) Glucose, Plasma 98 74 - 99 mg/dL 06/20/2024 6:04 AM EDT [facility] BUN, Plasma 4(L) 7 - 21 mg/dL 06/20/2024 6:04 AM EDT [facility] Creatinine, Plasma 0.59(L) 0.60 - 1.10 mg/dL 06/20/2024 6:04 AM EDT [facility] BUN/Creatinine Ratio 7 06/20/2024 6:04 AM EDT [facility] Sodium, Plasma 129(L) 136 - 145 mmol/L 06/20/2024 6:04 AM EDT [facility] Potassium, Plasma 4.4 3.6 - 4.9 mmol/L 06/20/2024 6:04 AM EDT [facility] Chloride, Plasma 95(L) 97 - 107 mmol/L 06/20/2024 6:04 AM EDT [facility] CO2, Plasma 24 22 - 29 mmol/L 06/20/2024 6:04 AM EDT [facility] Anion Gap 10 6 - 16 mmol/L 06/20/2024 6:04 AM EDT [facility] Total Calcium, Plasma 7.9(L) 8.9 - 10.2 mg/dL 06/20/2024 6:04 AM EDT [facility] Total Protein 6.5 6.3 - 7.9 g/dL 06/20/2024 6:04 AM EDT [facility] Albumin, Plasma 2.5(L) 3.5 - 5.2 g/dL 06/20/2024 6:04 AM EDT [facility] AST, Plasma 45(H) 10 - 35 U/L 06/20/2024 6:04 AM EDT [facility] ALT, Plasma 68(H) 10 - 35 U/L 06/20/2024 6:04 AM EDT [facility] Alkaline Phosphatase, Plasma 159(H) 35 - 104 U/L 06/20/2024 6:04 AM EDT [facility] Total Bilirubin, Plasma 0.2 0.2 - 1.1 mg/dL 06/20/2024 6:04 AM EDT [facility] eGFRcr 107.3 mL/min/1.7 3m*2 06/20/2024 6:04 AM EDT [facility] Comment:Reported eGFRcr in m L/min/1.73m2 is based the CKD-EPI 2020 equation that does not use a race coefficient. Blood Venous blood specimen / Unknown Venipuncture / Unknown 06/20/2024 4:45 AM EDT 06/20/2024 5:24 AM EDT Dulce Alamo ADMISSIONS SUPERVISOR LAB BLOOD ORDERABLES Final R esult Performing Organization Address City/[facility]/ZIP Co de Phone Number [facility] [address] [place] [address] * Magnesium, Plasma (06/20/2024 4:45 AM EDT) Magnesium, Plasma 1.9 1.9 - 2.4 mg/dL 06/20/2024 6:04 AM EDT [facility] Blood Venous blood specimen / Unknown Venipuncture / Unknown 06/20/2024 4:45 AM EDT 06/20/2024 5:24 AM EDT Dulce Alamo ADMISSIONS SUPERVISOR LAB BLOOD ORDERABLES Final R esult Performing Organization Address City/[facility]/ZIP Co de Phone Number [facility] [address] [place] [address] * (ABNORMAL) CBC W/O Differential (06/20/2024 4:45 AM EDT) WBC Count 17.53(H) 3.70 - 10.30 10*3/uL LAB HEMATOLOGY METHOD 06/20/2024 5:54 AM EDT [facility] RBC Count 3.83(L) 3.90 - 5.20 10*6/uL LAB HEMATOLOGY METHOD 06/20/2024 5:54 AM EDT [facility] HGB 11.2 11.2 - 15.7 g/dL LAB HEMATOLOGY METHOD 06/20/2024 5:54 AM EDT [facility] HCT 34.5 34.0 - 45.0 % LAB HEMATOLOGY METHOD 06/20/2024 5:54 AM EDT [facility] Platelet Count 682(H) 155 - 369 10*3/uL LAB HEMATOLOGY METHOD 06/20/2024 5:54 AM EDT [facility] MCV 90 79 - 98 fL LAB HEMATOLOGY METHOD 06/20/2024 5:54 AM EDT [facility] MCH 29.2 26.0 - 32.0 pg LAB HEMATOLOGY METHOD 06/20/2024 5:54 AM EDT [facility] MCHC 32.5 30.7 - 35.5 g/dL LAB HEMATOLOGY METHOD 06/20/2024 5:54 AM EDT [facility] RDW 14.6(H) 11.5 - 14.5 % LAB HEMATOLOGY METHOD 06/20/2024 5:54 AM EDT [facility] MPV 8.8 8.8 - 12.5 fL LAB HEMATOLOGY METHOD 06/20/2024 5:54 AM EDT [facility] nRBC 0.0 <=0.0 per 100 WBCs LAB HEMATOLOGY METHOD 06/20/2024 5:54 AM EDT [facility] Blood Venous blood specimen / Unknown Venipuncture / Unknown 06/20/2024 4:45 AM EDT 06/20/2024 5:27 AM EDT us Dulce Alamo APRN LAB BLOOD ORDERABLES Final R esult [facility] [address] [place] [address] * N-Terminal Probnp, Plasma (06/19/2024 5:13 AM EDT) N-Terminal, PROBNP, Plasma 481 0 - 899 pg/mL 06/19/2024 6:05 PM EDT [facility] Blood Venous blood specimen / Unknown Venipuncture / Unknown 06/19/2024 5:13 AM EDT 06/19/2024 5:40 AM EDT us Dulce A Zacher ADMISSIONS SUPERVISOR LAB BLOOD ORDERABLES Final R esult Performing Organization Address City/[facility]/ZIP Co de Phone Number [facility] [address] [place] [address] * (ABNORMAL) Magnesium (06/19/2024 5:13 AM EDT) Magnesium, Plasma 1.8(L) 1.9 - 2.4 mg/dL 06/19/2024 6:13 AM EDT [facility] Blood Venous blood specimen / Unknown Venipuncture / Unknown 06/19/2024 5:13 AM EDT 06/19/2024 5:40 AM EDT Trinity Yousif ADMISSIONS SUPERVISOR LAB BLOOD ORDERABLES Final Res ult Performing Organization Address [facility]/ZIP Co de Phone Number [facility] [address] [place] [address] * (ABNORMAL) Comprehensive metabolic panel (06/19/2024 5:13 AM EDT) Glucose, Plasma 90 74 - 99 mg/dL 06/19/2024 6:13 AM EDT [facility] BUN, Plasma 5(L) 7 - 21 mg/dL 06/19/2024 6:13 AM EDT [facility] Creatinine, Plasma 0.69 0.60 - 1.10 mg/dL 06/19/2024 6:13 AM EDT [facility] BUN/Creatinine Ratio 7 06/19/2024 6:13 AM EDT [facility] Sodium, Plasma 130(L) 136 - 145 mmol/L 06/19/2024 6:13 AM EDT [facility] Potassium, Plasma 3.5(L) 3.6 - 4.9 mmol/L 06/19/2024 6:13 AM EDT [facility] Chloride, Plasma 97 97 - 107 mmol/L 06/19/2024 6:13 AM EDT [facility] CO2, Plasma 24 22 - 29 mmol/L 06/19/2024 6:13 AM EDT [facility] Anion Gap 9 6 - 16 mmol/L 06/19/2024 6:13 AM EDT [facility] Total Calcium, Plasma 8.1(L) 8.9 - 10.2 mg/dL 06/19/2024 6:13 AM EDT [facility] Total Protein 6.5 6.3 - 7.9 g/dL 06/19/2024 6:13 AM EDT [facility] Albumin, Plasma 2.5(L) 3.5 - 5.2 g/dL 06/19/2024 6:13 AM EDT [facility] AST, Plasma 37(H) 10 - 35 U/L 06/19/2024 6:13 AM EDT [facility] ALT, Plasma 62(H) 10 - 35 U/L 06/19/2024 6:13 AM EDT [facility] Alkaline Phosphatase, Plasma 153(H) 35 - 104 U/L 06/19/2024 6:13 AM EDT [facility] Total Bilirubin, Plasma 0.2 0.2 - 1.1 mg/dL 06/19/2024 6:13 AM EDT [facility] eGFRcr 103.3 mL/min/1.7 3m*2 06/19/2024 6:13 AM EDT [facility] Comment:Reported eGFRcr in m L/min/1.73m2 is based the CKD-EPI 2020 equation that does not use a race coefficient. Blood Venous blood specimen / Unknown Venipuncture / Unknown 06/19/2024 5:13 AM EDT 06/19/2024 5:40 AM EDT us Trinity Yousif APRN LAB BLOOD ORDERABLES Final Res ult [facility] [address] [place] [address] * (ABNORMAL) Hemogram (CBC) (06/19/2024 5:13 AM EDT) WBC Count 11.65(H) 3.70 - 10.30 10*3/uL LAB HEMATOLOGY METHOD 06/19/2024 5:51 AM EDT [facility] RBC Count 3.67(L) 3.90 - 5.20 10*6/uL LAB HEMATOLOGY METHOD 06/19/2024 5:51 AM EDT [facility] HGB 10.7(L) 11.2 - 15.7 g/dL LAB HEMATOLOGY METHOD 06/19/2024 5:51 AM EDT [facility] HCT 33.1(L) 34.0 - 45.0 % LAB HEMATOLOGY METHOD 06/19/2024 5:51 AM EDT [facility] Platelet Count 615(H) 155 - 369 10*3/uL LAB HEMATOLOGY METHOD 06/19/2024 5:51 AM EDT [facility] MCV 90 79 - 98 fL LAB HEMATOLOGY METHOD 06/19/2024 5:51 AM EDT [facility] MCH 29.2 26.0 - 32.0 pg LAB HEMATOLOGY METHOD 06/19/2024 5:51 AM EDT [facility] MCHC 32.3 30.7 - 35.5 g/dL LAB HEMATOLOGY METHOD 06/19/2024 5:51 AM EDT [facility] RDW 14.6(H) 11.5 - 14.5 % LAB HEMATOLOGY METHOD 06/19/2024 5:51 AM EDT [facility] MPV 8.8 8.8 - 12.5 fL LAB HEMATOLOGY METHOD 06/19/2024 5:51 AM EDT [facility] nRBC 0.0 <=0.0 per 100 WBCs LAB HEMATOLOGY METHOD 06/19/2024 5:51 AM EDT [facility] Blood Venous blood specimen / Unknown Venipuncture / Unknown 06/19/2024 5:13 AM EDT 06/19/2024 5:41 AM EDT us Trinity Yousif ADMISSIONS SUPERVISOR LAB BLOOD ORDERABLES Final Res ult [facility] [address] [place] [address] * XR Abdomen 1 View (06/19/2024 5:08 [...] An MD on 06/18/2024 8:43 AM Trinity Yousif ADMISSIONS SUPERVISOR IMG XR PROCEDURES Final Result * XR [...] * (ABNORMAL) Magnesium (06/18/2024 2:32 AM EDT) Pathologist [facility] Magnesium, Plasma 1.7(L) 1.9 - 2.4 mg/dL 06/18/2024 3:39 AM EDT [facility] Blood Venous blood specimen / Unknown Venipuncture / Unknown 06/18/2024 2:32 AM EDT 06/18/2024 3:02 AM EDT us Trinity S Yousif ADMISSIONS SUPERVISOR LAB BLOOD ORDERABLES Final Res ult [facility] [address] [place] [address] * (ABNORMAL) Comprehensive metabolic panel (06/18/2024 2:32 AM EDT) Glucose, Plasma 94 74 - 99 mg/dL 06/18/2024 3:39 AM EDT [facility] BUN, Plasma 4(L) 7 - 21 mg/dL 06/18/2024 3:39 AM EDT [facility] Creatinine, Plasma 0.59(L) 0.60 - 1.10 mg/dL 06/18/2024 3:39 AM EDT [facility] BUN/Creatinine Ratio 7 06/18/2024 3:39 AM EDT [facility] Sodium, Plasma 132(L) 136 - 145 mmol/L 06/18/2024 3:39 AM EDT [facility] Potassium, Plasma 4.1 3.6 - 4.9 mmol/L 06/18/2024 3:39 AM EDT [facility] Chloride, Plasma 96(L) 97 - 107 mmol/L 06/18/2024 3:39 AM EDT [facility] CO2, Plasma 25 22 - 29 mmol/L 06/18/2024 3:39 AM EDT [facility] Anion Gap 11 6 - 16 mmol/L 06/18/2024 3:39 AM EDT [facility] Total Calcium, Plasma 8.3(L) 8.9 - 10.2 mg/dL 06/18/2024 3:39 AM EDT [facility] Total Protein 6.6 6.3 - 7.9 g/dL 06/18/2024 3:39 AM EDT [facility] Albumin, Plasma 2.7(L) 3.5 - 5.2 g/dL 06/18/2024 3:39 AM EDT [facility] AST, Plasma 43(H) 10 - 35 U/L 06/18/2024 3:39 AM EDT [facility] ALT, Plasma 72(H) 10 - 35 U/L 06/18/2024 3:39 AM EDT [facility] Alkaline Phosphatase, Plasma 164(H) 35 - 104 U/L 06/18/2024 3:39 AM EDT [facility] Total Bilirubin, Plasma 0.3 0.2 - 1.1 mg/dL 06/18/2024 3:39 AM EDT [facility] eGFRcr 107.3 mL/min/1.7 3m*2 06/18/2024 3:39 AM EDT [facility] Comment:Reported eGFRcr in m L/min/1.73m2 is based the CKD-EPI 2020 equation that does not use a race coefficient. Blood Venous blood specimen / Unknown Venipuncture / Unknown 06/18/2024 2:32 AM EDT 06/18/2024 3:02 AM EDT us Trinity Yousif ADMISSIONS SUPERVISOR LAB BLOOD ORDERABLES Final Res ult [facility] [address] [place] [address] * (ABNORMAL) Hemogram (CBC) (06/18/2024 2:32 AM EDT) WBC Count 16.58(H) 3.70 - 10.30 10*3/uL LAB HEMATOLOGY METHOD 06/18/2024 3:13 AM EDT [facility] RBC Count 3.79(L) 3.90 - 5.20 10*6/uL LAB HEMATOLOGY METHOD 06/18/2024 3:13 AM EDT [facility] HGB 11.0(L) 11.2 - 15.7 g/dL LAB HEMATOLOGY METHOD 06/18/2024 3:13 AM EDT [facility] HCT 33.7(L) 34.0 - 45.0 % LAB HEMATOLOGY METHOD 06/18/2024 3:13 AM EDT [facility] Platelet Count 565(H) 155 - 369 10*3/uL LAB HEMATOLOGY METHOD 06/18/2024 3:13 AM EDT [facility] MCV 89 79 - 98 fL LAB HEMATOLOGY METHOD 06/18/2024 3:13 AM EDT [facility] MCH 29.0 26.0 - 32.0 pg LAB HEMATOLOGY METHOD 06/18/2024 3:13 AM EDT [facility] MCHC 32.6 30.7 - 35.5 g/dL LAB HEMATOLOGY METHOD 06/18/2024 3:13 AM EDT [facility] RDW 14.7(H) 11.5 - 14.5 % LAB HEMATOLOGY METHOD 06/18/2024 3:13 AM EDT [facility] MPV 8.8 8.8 - 12.5 fL LAB HEMATOLOGY METHOD 06/18/2024 3:13 AM EDT [facility] nRBC 0.0 <=0.0 per 100 WBCs LAB HEMATOLOGY METHOD 06/18/2024 3:13 AM EDT [facility] Blood Venous blood specimen / Unknown Venipuncture / Unknown 06/18/2024 2:32 AM EDT 06/18/2024 3:02 AM EDT us Trinity Yousif APRN LAB BLOOD ORDERABLES Final Res ult [facility] [address] [place] [address] * (ABNORMAL) POCT glucose meter (06/17/2024 8:09 PM EDT) Pathologist [facility] POCT Glucose 145(H) 74 - 99 mg/dL [...] Comment 06/17/2024 8:11 PM EDT [facility] 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 Aletha Vargaskunuh 025 8:11 PM EDT [facility] Device ID [id number] 06/17/2024 8:11 PM EDT [facility] Specimen Type POC Capillary 06/17/2024 8:11 PM EDT [facility] Blood Capillary blood specimen / Unknown 06/17/2024 8:09 PM EDT 06/17/2024 8:11 PM EDT us Maite Austin MD LAB POINT OF CARE TE ST DOCKED DEVICE UNSOLICITED RESULTS Final Result Performing Organization Address City/[facility]/ZIP Co de Phone Number [facility] [address] [place] [address] * (ABNORMAL) POCT glucose meter (06/17/2024 4:51 [...] Comment 06/17/2024 7:32 PM EDT [facility] 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 Brooklyn Goldsmith 06/17/2024 7:32 PM EDT [facility] Device ID [id number] 06/17/2024 7:32 PM EDT [facility] Specimen Type POC Capillary 06/17/2024 7:32 PM EDT [facility] Blood Capillary blood specimen / Unknown 06/17/2024 4:51 PM EDT 06/17/2024 7:32 PM EDT Maite Austin MD LAB POINT OF CARE TE ST DOCKED DEVICE UNSOLICITED RESULTS Final Result [facility] [address] [place] [address] * XR Abdomen 1 View (06/17/2024 2:52 [...] MD on 06/17/2024 3:00 PM Trinity Yousif ADMISSIONS SUPERVISOR IMG XR PROCEDURES Final Result * POCT glucose meter (06/17/2024 12:00 PM EDT) Pathologist [facility] POCT Glucose 94 74 - 99 mg/dL [...] for testing. Comment 06/17/2024 7:19 PM EDT [facility] 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 Leonarda Londono 7:19 PM EDT [facility] Device ID [id number] 06/17/2024 7:19 PM EDT [facility] Specimen Type POC Capillary 06/17/2024 7:19 PM EDT [facility] Blood Capillary blood specimen / Unknown 06/17/2024 12:00 PM EDT 06/17/2024 7:19 PM EDT Maite Austin MD LAB POINT OF CARE TE ST DOCKED DEVICE UNSOLICITED RESULTS Final Result [facility] [address] [place] [address] * POCT glucose meter (06/17/2024 7:48 AM [...] 06/17/2024 7:17 PM EDT [facility] 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 Leonarda Londono 7:17 PM EDT [facility] Device ID [id number] 06/17/2024 7:17 PM EDT [facility] Specimen Type POC Capillary 06/17/2024 7:17 PM EDT [facility] Blood Capillary blood specimen / Unknown 06/17/2024 7:48 AM EDT 06/17/2024 7:17 PM EDT us Maite Austin MD LAB POINT OF CARE TE ST DOCKED DEVICE UNSOLICITED RESULTS Final Result [facility] [address] [place] [address] * XR Chest 1 View (06/17/2024 5:15 [...] - 2.4 mg/dL 06/17/2024 4:36 AM EDT [facility] Blood Venous blood specimen / Unknown Venipuncture / Unknown 06/17/2024 3:53 AM EDT 06/17/2024 4:06 AM EDT Trinity Yousif APRN LAB BLOOD ORDERABLES Final Res ult [facility] [address] [place] [address] * (ABNORMAL) Comprehensive metabolic panel (06/17/2024 3:53 AM EDT) Glucose, Plasma 104(H) 74 - 99 mg/dL 06/17/2024 4:36 AM EDT [facility] BUN, Plasma 4(L) 7 - 21 mg/dL 06/17/2024 4:36 AM EDT [facility] Creatinine, Plasma 0.61 0.60 - 1.10 mg/dL 06/17/2024 4:36 AM EDT [facility] BUN/Creatinine Ratio 7 06/17/2024 4:36 AM EDT [facility] Sodium, Plasma 130(L) 136 - 145 mmol/L 06/17/2024 4:36 AM EDT [facility] Potassium, Plasma 4.2 3.6 - 4.9 mmol/L 06/17/2024 4:36 AM EDT [facility] Chloride, Plasma 95(L) 97 - 107 mmol/L 06/17/2024 4:36 AM EDT [facility] CO2, Plasma 25 22 - 29 mmol/L 06/17/2024 4:36 AM EDT [facility] Anion Gap 10 6 - 16 mmol/L 06/17/2024 4:36 AM EDT [facility] Total Calcium, Plasma 8.3(L) 8.9 - 10.2 mg/dL 06/17/2024 4:36 AM EDT [facility] Total Protein 6.9 6.3 - 7.9 g/dL 06/17/2024 4:36 AM EDT [facility] Albumin, Plasma 2.7(L) 3.5 - 5.2 g/dL 06/17/2024 4:36 AM EDT [facility] AST, Plasma 70(H) 10 - 35 U/L 06/17/2024 4:36 AM EDT [facility] ALT, Plasma 87(H) 10 - 35 U/L 06/17/2024 4:36 AM EDT [facility] Alkaline Phosphatase, Plasma 172(H) 35 - 104 U/L 06/17/2024 4:36 AM EDT [facility] Total Bilirubin, Plasma 0.3 0.2 - 1.1 mg/dL 06/17/2024 4:36 AM EDT [facility] eGFRcr 106.4 mL/min/1.7 3m*2 06/17/2024 4:36 AM EDT [facility] Comment:Reported eGFRcr in m L/min/1.73m2 is based the CKD-EPI 2020 equation that does not use a race coefficient. Blood Venous blood specimen / Unknown Venipuncture / Unknown 06/17/2024 3:53 AM EDT 06/17/2024 4:06 AM EDT us Trinity Yousif ADMISSIONS SUPERVISOR LAB BLOOD ORDERABLES Final Res ult [facility] [address] [place] [address] * (ABNORMAL) Hemogram (CBC) (06/17/2024 3:53 AM EDT) WBC Count 12.53(H) 3.70 - 10.30 10*3/uL LAB HEMATOLOGY METHOD 06/17/2024 4:17 AM EDT [facility] RBC Count 3.53(L) 3.90 - 5.20 10*6/uL LAB HEMATOLOGY METHOD 06/17/2024 4:17 AM EDT [facility] HGB 10.4(L) 11.2 - 15.7 g/dL LAB HEMATOLOGY METHOD 06/17/2024 4:17 AM EDT [facility] HCT 31.9(L) 34.0 - 45.0 % LAB HEMATOLOGY METHOD 06/17/2024 4:17 AM EDT [facility] Platelet Count 514(H) 155 - 369 10*3/uL LAB HEMATOLOGY METHOD 06/17/2024 4:17 AM EDT [facility] MCV 90 79 - 98 fL LAB HEMATOLOGY METHOD 06/17/2024 4:17 AM EDT [facility] MCH 29.5 26.0 - 32.0 pg LAB HEMATOLOGY METHOD 06/17/2024 4:17 AM EDT [facility] MCHC 32.6 30.7 - 35.5 g/dL LAB HEMATOLOGY METHOD 06/17/2024 4:17 AM EDT [facility] RDW 14.8(H) 11.5 - 14.5 % LAB HEMATOLOGY METHOD 06/17/2024 4:17 AM EDT [facility] MPV 8.8 8.8 - 12.5 fL LAB HEMATOLOGY METHOD 06/17/2024 4:17 AM EDT [facility] nRBC 0.0 <=0.0 per 100 WBCs LAB HEMATOLOGY METHOD 06/17/2024 4:17 AM EDT [facility] Blood Venous blood specimen / Unknown Venipuncture / Unknown 06/17/2024 3:53 AM EDT 06/17/2024 4:07 AM EDT us Trinity Yousif ADMISSIONS SUPERVISOR LAB BLOOD ORDERABLES Final Res ult [facility] [address] [place] [address] * SEND JOCELYNE MESSAGE (06/16/2024 8:21 PM EDT) Urine Urine specimen obtained by clean catch procedure / Unknown Non-blood Collection / Unknown 06/16/2024 8:21 PM EDT 06/16/2024 8:26 PM EDT us Trinity Yousif ADMISSIONS SUPERVISOR LAB URINE ORDERABLES Final Res ult Performing Organization Address [facility] Co de Phone Number [facility] [address] [place] [address] * Urine Culture (06/16/2024 8:21 PM EDT) Culture <10,000 CFU/mL Mixed urogenital, fecal, or skin quincy present. 06/18/2024 10:03 AM EDT [facility] Urine Urine specimen obtained by clean catch procedure / Unknown Non-blood Collection / Unknown 06/16/2024 8:21 PM EDT 06/16/2024 8:26 PM EDT Trinity Yousif APRN LAB MICROBIOLOGY - GENERAL ORD ERABLES Final Result Performing Organization Address [facility] de Phone Number [facility] [address] [place] [address] * Urinalysis Microscopic Examination (06/16/2024 8:21 PM EDT) Urine Urine specimen obtained by clean catch procedure / Unknown Non-blood Collection / Unknown 06/16/2024 8:21 PM EDT 06/16/2024 8:26 PM EDT us Trinity Yousif ADMISSIONS SUPERVISOR LAB URINE ORDERABLES Final Res ult Performing Organization Address [facility] Co de Phone Number [facility] [address] [place] [address] * Urine Francis Panel (06/16/2024 8:21 PM EDT) Extra Sent for Culture 06/16/2024 10:02 PM EDT [facility] Urine Urine specimen obtained by clean catch procedure / Unknown Non-blood Collection / Unknown 06/16/2024 8:21 PM EDT 06/16/2024 8:26 PM EDT us Trinity Dayana Yousif APRN LAB URINE ORDERABLES Final Res ult [facility] [address] [place] [address] * (ABNORMAL) Urinalysis with reflex microscopic (Culture NOT Included) (06/16/2024 8:21 PM EDT) Color, Urine Yellow LAB URINALYSIS - AUTOMATED METHOD 06/16/2024 8:55 PM EDT [facility] Clarity, Urine Clear LAB URINALYSIS - AUTOMATED METHOD 06/16/2024 8:55 PM EDT [facility] Spec [place], Urine 1.013 1.005 - 1.030 LAB URINALYSIS - AUTOMATED METHOD 06/16/2024 8:55 PM EDT [facility] pH, Urine 6.0 5.0 - 8.0 LAB URINALYSIS - AUTOMATED METHOD 06/16/2024 8:55 PM EDT [facility] Protein, Urine Negative Negative mg/dL LAB URINALYSIS - AUTOMATED METHOD 06/16/2024 8:55 PM EDT [facility] Glucose, Urine Negative Negative mg/dL LAB URINALYSIS - AUTOMATED METHOD 06/16/2024 8:55 PM EDT [facility] Ketones, Urine Negative Negative mg/dL LAB URINALYSIS - AUTOMATED METHOD 06/16/2024 8:55 PM EDT [facility] Blood, Urine Negative Negative LAB URINALYSIS - AUTOMATED METHOD 06/16/2024 8:55 PM EDT [facility] Bilirubin, Urine Negative Negative LAB URINALYSIS - AUTOMATED METHOD 06/16/2024 8:55 PM EDT [facility] Urobilinogen, Urine 0.2 0.2 to 1.0 mg/dL LAB URINALYSIS - AUTOMATED METHOD 06/16/2024 8:55 PM EDT [facility] Leukocytes, Urine Large(A) Negative LAB URINALYSIS - AUTOMATED METHOD 06/16/2024 8:55 PM EDT [facility] Nitrite, Urine Negative Negative LAB URINALYSIS - AUTOMATED METHOD 06/16/2024 8:55 PM EDT [facility] RBC, Urine 2 0 to 3 /HPF LAB URINALYSIS - AUTOMATED METHOD 06/16/2024 8:55 PM EDT [facility] WBC, Urine >50(A) 0 to 5 /HPF LAB URINALYSIS - AUTOMATED METHOD 06/16/2024 8:55 PM EDT [facility] Squamous Epithelial Cells 11 - 20(A) 0 to 5 /HPF LAB URINALYSIS - AUTOMATED METHOD 06/16/2024 8:55 PM EDT [facility] Hyaline Casts 0 - 2 0 to 5 /LPF LAB URINALYSIS - AUTOMATED METHOD 06/16/2024 8:55 PM EDT [facility] Bacteria, Urine Present Negative LAB URINALYSIS - AUTOMATED METHOD 06/16/2024 8:55 PM EDT [facility] Renal Tubular Cells Present Absent 06/16/2024 8:55 PM EDT [facility] Transitional Epithelial Cells Present Absent 06/16/2024 8:55 PM EDT [facility] Yeast (Budding and/or Pseudohyphae) Present(A) Absent 06/16/2024 8:55 PM EDT [facility] Urine Urine specimen obtained by clean catch procedure / Unknown Non-blood Collection / Unknown 06/16/2024 8:21 PM EDT 06/16/2024 8:26 PM EDT Narrative [facility] - 06/16/2024 8:55 PM EDT Performed by manual method us Trinity Yousif APRN LAB URINE ORDERABLES Final Res ult [facility] [address] [place] [address] * Magnesium (06/16/2024 4:07 AM EDT) Magnesium, Plasma 2.0 1.9 - 2.4 mg/dL 06/16/2024 4:59 AM EDT [facility] Blood Venous blood specimen / Unknown Venipuncture / Unknown 06/16/2024 4:07 AM EDT 06/16/2024 4:29 AM EDT us Trinity Yousif ADMISSIONS SUPERVISOR LAB BLOOD ORDERABLES Final Res ult [facility] [address] [place] [address] * (ABNORMAL) Comprehensive metabolic panel (06/16/2024 4:07 AM EDT) Glucose, Plasma 93 74 - 99 mg/dL 06/16/2024 4:59 AM EDT [facility] BUN, Plasma 7 7 - 21 mg/dL 06/16/2024 4:59 AM EDT [facility] Creatinine, Plasma 0.57(L) 0.60 - 1.10 mg/dL 06/16/2024 4:59 AM EDT [facility] BUN/Creatinine Ratio 12 06/16/2024 4:59 AM EDT [facility] Sodium, Plasma 134(L) 136 - 145 mmol/L 06/16/2024 4:59 AM EDT [facility] Potassium, Plasma 3.6 3.6 - 4.9 mmol/L 06/16/2024 4:59 AM EDT [facility] Chloride, Plasma 98 97 - 107 mmol/L 06/16/2024 4:59 AM EDT [facility] CO2, Plasma 26 22 - 29 mmol/L 06/16/2024 4:59 AM EDT [facility] Anion Gap 10 6 - 16 mmol/L 06/16/2024 4:59 AM EDT [facility] Total Calcium, Plasma 7.9(L) 8.9 - 10.2 mg/dL 06/16/2024 4:59 AM EDT [facility] Total Protein 6.6 6.3 - 7.9 g/dL 06/16/2024 4:59 AM EDT [facility] Albumin, Plasma 2.5(L) 3.5 - 5.2 g/dL 06/16/2024 4:59 AM EDT [facility] AST, Plasma 37(H) 10 - 35 U/L 06/16/2024 4:59 AM EDT [facility] ALT, Plasma 55(H) 10 - 35 U/L 06/16/2024 4:59 AM EDT [facility] Alkaline Phosphatase, Plasma 170(H) 35 - 104 U/L 06/16/2024 4:59 AM EDT [facility] Total Bilirubin, Plasma 0.3 0.2 - 1.1 mg/dL 06/16/2024 4:59 AM EDT [facility] eGFRcr 108.1 mL/min/1.7 3m*2 06/16/2024 4:59 AM EDT [facility] Comment:Reported eGFRcr in m L/min/1.73m2 is based the CKD-EPI 2020 equation that does not use a race coefficient. Blood Venous blood specimen / Unknown Venipuncture / Unknown 06/16/2024 4:07 AM EDT 06/16/2024 4:29 AM EDT us Trinity Yousif ADMISSIONS SUPERVISOR LAB BLOOD ORDERABLES Final Res ult [facility] [address] [place] [address] * (ABNORMAL) Hemogram (CBC) (06/16/2024 4:07 AM EDT) WBC Count 9.35 3.70 - 10.30 10*3/uL LAB HEMATOLOGY METHOD 06/16/2024 4:37 AM EDT [facility] RBC Count 3.36(L) 3.90 - 5.20 10*6/uL LAB HEMATOLOGY METHOD 06/16/2024 4:37 AM EDT [facility] HGB 10.2(L) 11.2 - 15.7 g/dL LAB HEMATOLOGY METHOD 06/16/2024 4:37 AM EDT [facility] HCT 30.1(L) 34.0 - 45.0 % LAB HEMATOLOGY METHOD 06/16/2024 4:37 AM EDT [facility] Platelet Count 470(H) 155 - 369 10*3/uL LAB HEMATOLOGY METHOD 06/16/2024 4:37 AM EDT [facility] MCV 90 79 - 98 fL LAB HEMATOLOGY METHOD 06/16/2024 4:37 AM EDT [facility] MCH 30.4 26.0 - 32.0 pg LAB HEMATOLOGY METHOD 06/16/2024 4:37 AM EDT [facility] MCHC 33.9 30.7 - 35.5 g/dL LAB HEMATOLOGY METHOD 06/16/2024 4:37 AM EDT [facility] RDW 14.9(H) 11.5 - 14.5 % LAB HEMATOLOGY METHOD 06/16/2024 4:37 AM EDT [facility] MPV 9.0 8.8 - 12.5 fL LAB HEMATOLOGY METHOD 06/16/2024 4:37 AM EDT [facility] nRBC 0.0 <=0.0 per 100 WBCs LAB HEMATOLOGY METHOD 06/16/2024 4:37 AM EDT [facility] Blood Venous blood specimen / Unknown Venipuncture / Unknown 06/16/2024 4:07 AM EDT 06/16/2024 4:28 AM EDT Trinity Yousif APRN LAB BLOOD ORDERABLES Final Res ult [facility] [address] [place] [address] * XR Hip Right 2 or 3 [...] on 06/15/2024 10:23 AM Trinity Anne Yousif ADMISSIONS SUPERVISOR IMG XR PROCEDURES Final Result * XR [...] - 41.0 mg/dL 06/15/2024 8:27 AM EDT [facility] Blood Venous blood specimen / Unknown Venipuncture / Unknown 06/15/2024 4:49 AM EDT 06/15/2024 5:28 AM EDT Trinity Yousif APRN LAB BLOOD ORDERABLES Final Res ult Performing Organization Address City/[facility]/ZIP Co de Phone Number [facility] [address] [place] [address] * (ABNORMAL) Magnesium (06/15/2024 4:49 AM EDT) Magnesium, Plasma 1.4(L) 1.9 - 2.4 mg/dL 06/15/2024 6:00 AM EDT [facility] Blood Venous blood specimen / Unknown Venipuncture / Unknown 06/15/2024 4:49 AM EDT 06/15/2024 5:28 AM EDT Uriah PHILLIP LAB BLOOD ORDERABLES Final Result [facility] [address] [place] [address] * (ABNORMAL) Comprehensive metabolic panel (06/15/2024 4:49 AM EDT) Glucose, Plasma 100(H) 74 - 99 mg/dL 06/15/2024 6:00 AM EDT [facility] BUN, Plasma 10 7 - 21 mg/dL 06/15/2024 6:00 AM EDT [facility] Creatinine, Plasma 0.58(L) 0.60 - 1.10 mg/dL 06/15/2024 6:00 AM EDT [facility] BUN/Creatinine Ratio 17 06/15/2024 6:00 AM EDT [facility] Sodium, Plasma 128(L) 136 - 145 mmol/L 06/15/2024 6:00 AM EDT [facility] Potassium, Plasma 3.8 3.6 - 4.9 mmol/L 06/15/2024 6:00 AM EDT [facility] Chloride, Plasma 95(L) 97 - 107 mmol/L 06/15/2024 6:00 AM EDT [facility] CO2, Plasma 25 22 - 29 mmol/L 06/15/2024 6:00 AM EDT [facility] Anion Gap 8 6 - 16 mmol/L 06/15/2024 6:00 AM EDT [facility] Total Calcium, Plasma 8.0(L) 8.9 - 10.2 mg/dL 06/15/2024 6:00 AM EDT [facility] Total Protein 6.4 6.3 - 7.9 g/dL 06/15/2024 6:00 AM EDT [facility] Albumin, Plasma 2.5(L) 3.5 - 5.2 g/dL 06/15/2024 6:00 AM EDT [facility] AST, Plasma 32 10 - 35 U/L 06/15/2024 6:00 AM EDT [facility] ALT, Plasma 59(H) 10 - 35 U/L 06/15/2024 6:00 AM EDT [facility] Alkaline Phosphatase, Plasma 181(H) 35 - 104 U/L 06/15/2024 6:00 AM EDT [facility] Total Bilirubin, Plasma 0.3 0.2 - 1.1 mg/dL 06/15/2024 6:00 AM EDT [facility] eGFRcr 107.7 mL/min/1.7 3m*2 06/15/2024 6:00 AM EDT [facility] Comment:Reported eGFRcr in m L/min/1.73m2 is based the CKD-EPI 2020 equation that does not use a race coefficient. Blood Venous blood specimen / Unknown Venipuncture / Unknown 06/15/2024 4:49 AM EDT 06/15/2024 5:28 AM EDT Uriah PHILLIP LAB BLOOD ORDERABLES Final Result [facility] [address] [place] [address] * (ABNORMAL) CBC W/O Differential (06/15/2024 4:49 AM EDT) WBC Count 15.65(H) 3.70 - 10.30 10*3/uL LAB HEMATOLOGY METHOD 06/15/2024 5:40 AM EDT [facility] RBC Count 3.49(L) 3.90 - 5.20 10*6/uL LAB HEMATOLOGY METHOD 06/15/2024 5:40 AM EDT [facility] HGB 10.3(L) 11.2 - 15.7 g/dL LAB HEMATOLOGY METHOD 06/15/2024 5:40 AM EDT [facility] HCT 31.8(L) 34.0 - 45.0 % LAB HEMATOLOGY METHOD 06/15/2024 5:40 AM EDT [facility] Platelet Count 437(H) 155 - 369 10*3/uL LAB HEMATOLOGY METHOD 06/15/2024 5:40 AM EDT [facility] MCV 91 79 - 98 fL LAB HEMATOLOGY METHOD 06/15/2024 5:40 AM EDT [facility] MCH 29.5 26.0 - 32.0 pg LAB HEMATOLOGY METHOD 06/15/2024 5:40 AM EDT [facility] MCHC 32.4 30.7 - 35.5 g/dL LAB HEMATOLOGY METHOD 06/15/2024 5:40 AM EDT [facility] RDW 15.0(H) 11.5 - 14.5 % LAB HEMATOLOGY METHOD 06/15/2024 5:40 AM EDT [facility] MPV 9.3 8.8 - 12.5 fL LAB HEMATOLOGY METHOD 06/15/2024 5:40 AM EDT [facility] nRBC 0.0 <=0.0 per 100 WBCs LAB HEMATOLOGY METHOD 06/15/2024 5:40 AM EDT [facility] Blood Venous blood specimen / Unknown Venipuncture / Unknown 06/15/2024 4:49 AM EDT 06/15/2024 5:33 AM EDT Uriah [facility] LAB BLOOD ORDERABLES Final Result [facility] [address] [place] [address] * CT Head wo IV Contrast (06/14/2024 [...] MD on 06/15/2024 8:12 AM Uriah PHILLIP IM CT PROCEDURES Final Res ult * (ABNORMAL) Blood gas panel, venous (06/14/2024 12:58 AM EDT) pH, Venous 7.42 7.32 - 7.43 LAB HEMATOLOGY METHOD 06/14/2024 1:14 AM EDT [facility] pCO2, Venous 46 37 - 52 mmHg LAB HEMATOLOGY METHOD 06/14/2024 1:14 AM EDT [facility] pO2, Venous 36 25 - 40 mmHg LAB HEMATOLOGY METHOD 06/14/2024 1:14 AM EDT [facility] SO2, Measured, Venous 66 65 - 80 % LAB HEMATOLOGY METHOD 06/14/2024 1:14 AM EDT [facility] Base Excess, Venous 4.7(H) -2.0 - 3.0 mmol/L LAB HEMATOLOGY METHOD 06/14/2024 1:14 AM EDT [facility] Bicarbonate, Calculated, Venous 30(H) 22 - 26 mmol/L LAB HEMATOLOGY METHOD 06/14/2024 1:14 AM EDT [facility] Hematocrit, Whole Blood 33.3(L) 34.0 - 45.0 % LAB HEMATOLOGY METHOD 06/14/2024 1:14 AM EDT [facility] Sodium, Whole Blood 129(L) 136 - 145 mmol/L LAB HEMATOLOGY METHOD 06/14/2024 1:14 AM EDT [facility] Potassium, Whole Blood 3.6 3.6 - 4.9 mmol/L LAB HEMATOLOGY METHOD 06/14/2024 1:14 AM EDT [facility] Chloride, Whole Blood 93(L) 97 - 107 mmol/L LAB HEMATOLOGY METHOD 06/14/2024 1:14 AM EDT [facility] Glucose, Whole Blood 106(H) 74 - 99 mg/dL LAB HEMATOLOGY METHOD 06/14/2024 1:14 AM EDT [facility] Lactate, Venous, Whole Blood 0.7 0.5 - 2.2 mmol/L LAB HEMATOLOGY METHOD 06/14/2024 1:14 AM EDT [facility] Ionized Calcium, Whole Blood 4.6 4.6 - 5.1 mg/dL LAB HEMATOLOGY METHOD 06/14/2024 1:14 AM EDT [facility] Blood Venous blood specimen / Unknown (Central Line) Existing Catheter / Unknown 06/14/2024 12:58 AM EDT 06/14/2024 1:13 AM EDT us Maite Austin MD LAB BLOOD ORDERABLES Final Resu lt [facility] [address] [place] [address] * (ABNORMAL) CBC W/O Differential (06/14/2024 12:58 AM EDT) WBC Count 21.20(H) 3.70 - 10.30 10*3/uL LAB HEMATOLOGY METHOD 06/14/2024 1:21 AM EDT [facility] RBC Count 3.79(L) 3.90 - 5.20 10*6/uL LAB HEMATOLOGY METHOD 06/14/2024 1:21 AM EDT [facility] HGB 11.1(L) 11.2 - 15.7 g/dL LAB HEMATOLOGY METHOD 06/14/2024 1:21 AM EDT [facility] HCT 33.6(L) 34.0 - 45.0 % LAB HEMATOLOGY METHOD 06/14/2024 1:21 AM EDT [facility] Platelet Count 433(H) 155 - 369 10*3/uL LAB HEMATOLOGY METHOD 06/14/2024 1:21 AM EDT [facility] MCV 89 79 - 98 fL LAB HEMATOLOGY METHOD 06/14/2024 1:21 AM EDT [facility] MCH 29.3 26.0 - 32.0 pg LAB HEMATOLOGY METHOD 06/14/2024 1:21 AM EDT [facility] MCHC 33.0 30.7 - 35.5 g/dL LAB HEMATOLOGY METHOD 06/14/2024 1:21 AM EDT [facility] RDW 14.8(H) 11.5 - 14.5 % LAB HEMATOLOGY METHOD 06/14/2024 1:21 AM EDT [facility] MPV 8.9 8.8 - 12.5 fL LAB HEMATOLOGY METHOD 06/14/2024 1:21 AM EDT [facility] nRBC 0.0 <=0.0 per 100 WBCs LAB HEMATOLOGY METHOD 06/14/2024 1:21 AM EDT [facility] Blood Blood sample taken from central line / Unknown (Central Line) Existing Catheter / Unknown 06/14/2024 12:58 AM EDT 06/14/2024 1:13 AM EDT Uriah PHILLIP LAB BLOOD ORDERABLES Final Result [facility] [address] [place] [address] * (ABNORMAL) Comprehensive metabolic panel (06/14/2024 12:58 AM EDT) Glucose, Plasma 105(H) 74 - 99 mg/dL 06/14/2024 1:43 AM EDT [facility] BUN, Plasma 13 7 - 21 mg/dL 06/14/2024 1:43 AM EDT [facility] Creatinine, Plasma 0.51(L) 0.60 - 1.10 mg/dL 06/14/2024 1:43 AM EDT [facility] BUN/Creatinine Ratio 25 06/14/2024 1:43 AM EDT [facility] Sodium, Plasma 130(L) 136 - 145 mmol/L 06/14/2024 1:43 AM EDT [facility] Potassium, Plasma 3.7 3.6 - 4.9 mmol/L 06/14/2024 1:43 AM EDT [facility] Chloride, Plasma 94(L) 97 - 107 mmol/L 06/14/2024 1:43 AM EDT [facility] CO2, Plasma 26 22 - 29 mmol/L 06/14/2024 1:43 AM EDT [facility] Anion Gap 10 6 - 16 mmol/L 06/14/2024 1:43 AM EDT [facility] Total Calcium, Plasma 8.5(L) 8.9 - 10.2 mg/dL 06/14/2024 1:43 AM EDT [facility] Total Protein 7.0 6.3 - 7.9 g/dL 06/14/2024 1:43 AM EDT [facility] Albumin, Plasma 2.7(L) 3.5 - 5.2 g/dL 06/14/2024 1:43 AM EDT [facility] AST, Plasma 36(H) 10 - 35 U/L 06/14/2024 1:43 AM EDT [facility] ALT, Plasma 79(H) 10 - 35 U/L 06/14/2024 1:43 AM EDT [facility] Alkaline Phosphatase, Plasma 216(H) 35 - 104 U/L 06/14/2024 1:43 AM EDT [facility] Total Bilirubin, Plasma 0.3 0.2 - 1.1 mg/dL 06/14/2024 1:43 AM EDT [facility] eGFRcr 111.1 mL/min/1.7 3m*2 06/14/2024 1:43 AM EDT [facility] Comment:Reported eGFRcr in m L/min/1.73m2 is based the CKD-EPI 2020 equation that does not use a race coefficient. Blood Blood sample taken from central line / Unknown (Central Line) Existing Catheter / Unknown 06/14/2024 12:58 AM EDT 06/14/2024 1:13 AM EDT Uriah PHILLIP LAB BLOOD ORDERABLES Final Result Performing Organization Address [facility] Co de Phone Number [facility] [address] [place] [address] * (ABNORMAL) Magnesium (06/14/2024 12:58 AM EDT) Magnesium, Plasma 1.5(L) 1.9 - 2.4 mg/dL 06/14/2024 1:43 AM EDT [facility] Blood Blood sample taken from central line / Unknown (Central Line) Existing Catheter / Unknown 06/14/2024 12:58 AM EDT 06/14/2024 1:13 AM EDT Trinity Yousif APRN LAB BLOOD ORDERABLES Final Res ult [facility] [address] [place] [address] * (ABNORMAL) CBC W/O Differential (06/13/2024 12:40 AM EDT) WBC Count 14.79(H) 3.70 - 10.30 10*3/uL LAB HEMATOLOGY METHOD 06/13/2024 1:03 AM EDT [facility] RBC Count 3.35(L) 3.90 - 5.20 10*6/uL LAB HEMATOLOGY METHOD 06/13/2024 1:03 AM EDT [facility] HGB 9.8(L) 11.2 - 15.7 g/dL LAB HEMATOLOGY METHOD 06/13/2024 1:03 AM EDT [facility] HCT 30.5(L) 34.0 - 45.0 % LAB HEMATOLOGY METHOD 06/13/2024 1:03 AM EDT [facility] Platelet Count 409(H) 155 - 369 10*3/uL LAB HEMATOLOGY METHOD 06/13/2024 1:03 AM EDT [facility] MCV 91 79 - 98 fL LAB HEMATOLOGY METHOD 06/13/2024 1:03 AM EDT [facility] MCH 29.3 26.0 - 32.0 pg LAB HEMATOLOGY METHOD 06/13/2024 1:03 AM EDT [facility] MCHC 32.1 30.7 - 35.5 g/dL LAB HEMATOLOGY METHOD 06/13/2024 1:03 AM EDT [facility] RDW 15.0(H) 11.5 - 14.5 % LAB HEMATOLOGY METHOD 06/13/2024 1:03 AM EDT [facility] MPV 9.0 8.8 - 12.5 fL LAB HEMATOLOGY METHOD 06/13/2024 1:03 AM EDT [facility] nRBC 0.0 <=0.0 per 100 WBCs LAB HEMATOLOGY METHOD 06/13/2024 1:03 AM EDT [facility] Blood Blood sample taken from central line / Unknown (Central Line) Existing Catheter / Unknown 06/13/2024 12:40 AM EDT 06/13/2024 12:54 AM EDT Uriah PHILLIP LAB BLOOD ORDERABLES Final Result [facility] [address] [place] [address] * (ABNORMAL) Comprehensive metabolic panel (06/13/2024 12:40 AM EDT) Glucose, Plasma 106(H) 74 - 99 mg/dL 06/13/2024 1:31 AM EDT [facility] BUN, Plasma 6(L) 7 - 21 mg/dL 06/13/2024 1:31 AM EDT [facility] Creatinine, Plasma 0.54(L) 0.60 - 1.10 mg/dL 06/13/2024 1:31 AM EDT [facility] BUN/Creatinine Ratio 11 06/13/2024 1:31 AM EDT [facility] Sodium, Plasma 131(L) 136 - 145 mmol/L 06/13/2024 1:31 AM EDT [facility] Potassium, Plasma 4.0 3.6 - 4.9 mmol/L 06/13/2024 1:31 AM EDT [facility] Chloride, Plasma 96(L) 97 - 107 mmol/L 06/13/2024 1:31 AM EDT [facility] CO2, Plasma 25 22 - 29 mmol/L 06/13/2024 1:31 AM EDT [facility] Anion Gap 10 6 - 16 mmol/L 06/13/2024 1:31 AM EDT [facility] Total Calcium, Plasma 8.0(L) 8.9 - 10.2 mg/dL 06/13/2024 1:31 AM EDT [facility] Total Protein 6.5 6.3 - 7.9 g/dL 06/13/2024 1:31 AM EDT [facility] Albumin, Plasma 2.6(L) 3.5 - 5.2 g/dL 06/13/2024 1:31 AM EDT [facility] AST, Plasma 52(H) 10 - 35 U/L 06/13/2024 1:31 AM EDT [facility] ALT, Plasma 99(H) 10 - 35 U/L 06/13/2024 1:31 AM EDT [facility] Alkaline Phosphatase, Plasma 212(H) 35 - 104 U/L 06/13/2024 1:31 AM EDT [facility] Total Bilirubin, Plasma 0.3 0.2 - 1.1 mg/dL 06/13/2024 1:31 AM EDT [facility] eGFRcr 109.6 mL/min/1.7 3m*2 06/13/2024 1:31 AM EDT [facility] Comment:Reported eGFRcr in m L/min/1.73m2 is based the CKD-EPI 2020 equation that does not use a race coefficient. Blood Blood sample taken from central line / Unknown (Central Line) Existing Catheter / Unknown 06/13/2024 12:40 AM EDT 06/13/2024 12:53 AM EDT Uriah PHILLIP LAB BLOOD ORDERABLES Final Result [facility] [address] [place] [address] * (ABNORMAL) CBC and differential (06/12/2024 3:24 AM EDT) WBC Count 10.53(H) 3.70 - 10.30 10*3/uL LAB HEMATOLOGY METHOD 06/12/2024 3:43 AM EDT [facility] RBC Count 3.17(L) 3.90 - 5.20 10*6/uL LAB HEMATOLOGY METHOD 06/12/2024 3:43 AM EDT [facility] HGB 9.3(L) 11.2 - 15.7 g/dL LAB HEMATOLOGY METHOD 06/12/2024 3:43 AM EDT [facility] HCT 29.4(L) 34.0 - 45.0 % LAB HEMATOLOGY METHOD 06/12/2024 3:43 AM EDT [facility] Platelet Count 393(H) 155 - 369 10*3/uL LAB HEMATOLOGY METHOD 06/12/2024 3:43 AM EDT [facility] MCV 93 79 - 98 fL LAB HEMATOLOGY METHOD 06/12/2024 3:43 AM EDT [facility] MCH 29.3 26.0 - 32.0 pg LAB HEMATOLOGY METHOD 06/12/2024 3:43 AM EDT [facility] MCHC 31.6 30.7 - 35.5 g/dL LAB HEMATOLOGY METHOD 06/12/2024 3:43 AM EDT [facility] RDW 15.2(H) 11.5 - 14.5 % LAB HEMATOLOGY METHOD 06/12/2024 3:43 AM EDT [facility] MPV 9.1 8.8 - 12.5 fL LAB HEMATOLOGY METHOD 06/12/2024 3:43 AM EDT [facility] nRBC 0.0 <=0.0 per 100 WBCs LAB HEMATOLOGY METHOD 06/12/2024 3:43 AM EDT [facility] Differential Type Automated LAB HEMATOLOGY METHOD 06/12/2024 3:43 AM EDT [facility] Neutrophils % 54 % LAB HEMATOLOGY METHOD 06/12/2024 3:43 AM EDT [facility] Lymphocytes % 28 % LAB HEMATOLOGY METHOD 06/12/2024 3:43 AM EDT [facility] Monocytes % 11 % LAB HEMATOLOGY METHOD 06/12/2024 3:43 AM EDT [facility] Eosinophils % 2 % LAB HEMATOLOGY METHOD 06/12/2024 3:43 AM EDT [facility] Basophils % 1 % LAB HEMATOLOGY METHOD 06/12/2024 3:43 AM EDT [facility] Immature Granulocytes % 4 % LAB HEMATOLOGY METHOD 06/12/2024 3:43 AM EDT [facility] Neutrophils Absolute 5.65 1.60 - 6.10 10*3/uL LAB HEMATOLOGY METHOD 06/12/2024 3:43 AM EDT [facility] Lymphocytes Absolute 2.99 1.20 - 3.90 10*3/uL LAB HEMATOLOGY METHOD 06/12/2024 3:43 AM EDT [facility] Monocytes Absolute 1.11(H) 0.30 - 0.90 10*3/uL LAB HEMATOLOGY METHOD 06/12/2024 3:43 AM EDT [facility] Eosinophils Absolute 0.25 0.00 - 0.50 10*3/uL LAB HEMATOLOGY METHOD 06/12/2024 3:43 AM EDT [facility] Basophils Absolute 0.13(H) 0.00 - 0.10 10*3/uL LAB HEMATOLOGY METHOD 06/12/2024 3:43 AM EDT [facility] Immature Granulocytes Absolute 0.40(H) 0.00 - 0.06 10*3/uL LAB HEMATOLOGY METHOD 06/12/2024 3:43 AM EDT [facility] Blood Blood sample taken from central line / Unknown (Central Line) Existing Catheter / Unknown 06/12/2024 3:24 AM EDT 06/12/2024 3:34 AM EDT Narrative [facility] - 06/12/2024 3:43 AM EDT Therapeutic decision making should be based on absolute values, rather than percentages. us Uriah PHILLIP LAB BLOOD ORDERABLES Final Result [facility] [address] [place] [address] * (ABNORMAL) Comprehensive metabolic panel (06/12/2024 3:24 AM EDT) Glucose, Plasma 93 74 - 99 mg/dL 06/12/2024 4:01 AM EDT [facility] BUN, Plasma 12 7 - 21 mg/dL 06/12/2024 4:01 AM EDT [facility] Creatinine, Plasma 0.59(L) 0.60 - 1.10 mg/dL 06/12/2024 4:01 AM EDT [facility] BUN/Creatinine Ratio 20 06/12/2024 4:01 AM EDT [facility] Sodium, Plasma 129(L) 136 - 145 mmol/L 06/12/2024 4:01 AM EDT [facility] Potassium, Plasma 3.8 3.6 - 4.9 mmol/L 06/12/2024 4:01 AM EDT [facility] Chloride, Plasma 95(L) 97 - 107 mmol/L 06/12/2024 4:01 AM EDT [facility] CO2, Plasma 27 22 - 29 mmol/L 06/12/2024 4:01 AM EDT [facility] Anion Gap 7 6 - 16 mmol/L 06/12/2024 4:01 AM EDT [facility] Total Calcium, Plasma 8.1(L) 8.9 - 10.2 mg/dL 06/12/2024 4:01 AM EDT [facility] Total Protein 6.3 6.3 - 7.9 g/dL 06/12/2024 4:01 AM EDT [facility] Albumin, Plasma 2.5(L) 3.5 - 5.2 g/dL 06/12/2024 4:01 AM EDT [facility] AST, Plasma 58(H) 10 - 35 U/L 06/12/2024 4:01 AM EDT [facility] ALT, Plasma 106(H) 10 - 35 U/L 06/12/2024 4:01 AM EDT [facility] Alkaline Phosphatase, Plasma 229(H) 35 - 104 U/L 06/12/2024 4:01 AM EDT [facility] Total Bilirubin, Plasma 0.3 0.2 - 1.1 mg/dL 06/12/2024 4:01 AM EDT [facility] eGFRcr 107.3 mL/min/1.7 3m*2 06/12/2024 4:01 AM EDT [facility] Comment:Reported eGFRcr in m L/min/1.73m2 is based the CKD-EPI 2020 equation that does not use a race coefficient. Blood Blood sample taken from central line / Unknown (Central Line) Existing Catheter / Unknown 06/12/2024 3:24 AM EDT 06/12/2024 3:33 AM EDT us Uriah PHILLIP LAB BLOOD ORDERABLES Final Result Performing Organization Address City/State/[facility] Co de Phone Number [facility] [address] [place] [address] * XR Abdomen 1 View (06/11/2024 8:34 [...] Yamil Delong MD on 06/11/2024 8:41 AM us Uriah PHILLIP IMG XR PROCEDURES [...] LAB HEMATOLOGY METHOD 06/11/2024 8:40 AM EDT [facility] Neutrophils % 63 % LAB HEMATOLOGY METHOD 06/11/2024 8:40 AM EDT [facility] Lymphocytes % 23 % LAB HEMATOLOGY METHOD 06/11/2024 8:40 AM EDT [facility] Monocytes % 8 % LAB HEMATOLOGY METHOD 06/11/2024 8:40 AM EDT [facility] Eosinophils % 2 % LAB HEMATOLOGY METHOD 06/11/2024 8:40 AM EDT [facility] Basophils % 1 % LAB HEMATOLOGY METHOD 06/11/2024 8:40 AM EDT [facility] Immature Granulocytes % 3 % LAB HEMATOLOGY METHOD 06/11/2024 8:40 AM EDT [facility] Immature Granulocytes Absolute 0.43(H) 0.00 - 0.06 10*3/uL LAB HEMATOLOGY METHOD 06/11/2024 8:40 AM EDT [facility] Neutrophils Absolute 10.15(H) 1.60 - 6.10 10*3/uL LAB HEMATOLOGY METHOD 06/11/2024 8:40 AM EDT [facility] Lymphocytes Absolute 3.53 1.20 - 3.90 10*3/uL LAB HEMATOLOGY METHOD 06/11/2024 8:40 AM EDT [facility] Monocytes Absolute 1.18(H) 0.30 - 0.90 10*3/uL LAB HEMATOLOGY METHOD 06/11/2024 8:40 AM EDT [facility] Basophils Absolute 0.15(H) 0.00 - 0.10 10*3/uL LAB HEMATOLOGY METHOD 06/11/2024 8:40 AM EDT [facility] Eosinophils Absolute 0.25 0.00 - 0.50 10*3/uL LAB HEMATOLOGY METHOD 06/11/2024 8:40 AM EDT [facility] Blood Venous blood specimen / Unknown 06/11/2024 4:32 AM EDT 06/11/2024 4:32 AM EDT Uriah PHILLIP LAB BLOOD ORDERABLES Final Result Performing Organization Address [facility] Co de Phone Number [facility] [address] [place] [address] * (ABNORMAL) Procalcitonin (06/11/2024 4:32 AM EDT) Procalcitonin, Plasma 0.10(H) <0.09 ng/mL 06/11/2024 8:43 AM EDT [facility] Blood Venous blood specimen / Unknown 06/11/2024 4:32 AM EDT 06/11/2024 4:32 AM EDT Narrative [facility] - 06/11/2024 8:43 AM EDT Procalcitonin [...] predict 28 day mortality risk. Please consult [email or web address]-[email or web address]-[email or web address] for more information. Test performed at [facility]. Uriah PHILLIP LAB BLOOD ORDERABLES Final Result Performing Organization Address City/[facility]/ZIP Co de Phone Number [facility] [address] [place] [address] * Lavender Top (06/11/2024 4:32 AM EDT) Extra Hold for add-ons 06/11/2024 7:02 AM EDT [facility] Comment:Auto resulted. Blood Venous blood specimen / Unknown 06/11/2024 4:32 AM EDT 06/11/2024 4:32 AM EDT us Maite Austin MD LAB BLOOD ORDERABLES Final Resu lt Performing Organization Address City/[facility]/ZIP Co de Phone Number [facility] [address] [place] [address] * Light Green Top (06/11/2024 4:32 AM EDT) Pathologist [facility] Extra Hold for add-ons 06/11/2024 7:02 AM EDT [facility] Comment:Auto resulted. Blood Venous blood specimen / Unknown 06/11/2024 4:32 AM EDT 06/11/2024 4:32 AM EDT us Maite Austin MD LAB BLOOD ORDERABLES Final Resu lt Performing Organization Address [facility] de Phone Number [facility] [address] [place] [address] * POCT glucose meter (06/10/2024 5:56 AM EDT) [facility] POCT Glucose 91 74 - 99 mg/dL [...] 06/10/2024 7:29 AM EDT [facility] 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 Yakybets Valerie 06/10/2024 7:29 AM EDT [facility] Device ID [id number] 06/10/2024 7:29 AM EDT [facility] Specimen Type POC Capillary 06/10/2024 7:29 AM EDT [facility] Blood Capillary blood specimen / Unknown 06/10/2024 5:56 AM EDT 06/10/2024 7:29 AM EDT us Maite Austin MD LAB POINT OF CARE TE ST DOCKED DEVICE UNSOLICITED RESULTS Final Result Performing Organization Address City/[facility]/ZIP Co de Phone Number [facility] [address] [place] [address] * POCT glucose meter (06/10/2024 5:09 AM EDT) [facility] POCT Glucose 78 74 - 99 mg/dL [...] Comment 06/10/2024 5:10 AM EDT [facility] 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 Katelyn Parker 025 5:10 AM EDT [facility] Device ID [id number] 06/10/2024 5:10 AM EDT [facility] Specimen Type POC Capillary 06/10/2024 5:10 AM EDT [facility] Blood Capillary blood specimen / Unknown 06/10/2024 5:09 AM EDT 06/10/2024 5:10 AM EDT Maite Austin MD LAB POINT OF CARE TE ST DOCKED DEVICE UNSOLICITED RESULTS Final Result Performing Organization Address [facility] Co de Phone Number [facility] [address] [place] [address] * (ABNORMAL) Comprehensive Metabolic Panel, Plasma (06/10/2024 4:28 AM EDT) [facility] Glucose, Plasma 76 74 - 99 mg/dL 06/10/2024 6:10 AM EDT [facility] BUN, Plasma 9 7 - 21 mg/dL 06/10/2024 6:10 AM EDT [facility] Creatinine, Plasma 0.53(L) 0.60 - 1.10 mg/dL 06/10/2024 6:10 AM EDT [facility] BUN/Creatinine Ratio 17 06/10/2024 6:10 AM EDT [facility] Sodium, Plasma 131(L) 136 - 145 mmol/L 06/10/2024 6:10 AM EDT [facility] Potassium, Plasma 4.1 3.6 - 4.9 mmol/L 06/10/2024 6:10 AM EDT [facility] Chloride, Plasma 97 97 - 107 mmol/L 06/10/2024 6:10 AM EDT [facility] CO2, Plasma 26 22 - 29 mmol/L 06/10/2024 6:10 AM EDT [facility] Anion Gap 8 6 - 16 mmol/L 06/10/2024 6:10 AM EDT [facility] Total Calcium, Plasma 8.4(L) 8.9 - 10.2 mg/dL 06/10/2024 6:10 AM EDT [facility] Total Protein 6.7 6.3 - 7.9 g/dL 06/10/2024 6:10 AM EDT [facility] Albumin, Plasma 2.7(L) 3.5 - 5.2 g/dL 06/10/2024 6:10 AM EDT [facility] AST, Plasma 80(H) 10 - 35 U/L 06/10/2024 6:10 AM EDT [facility] ALT, Plasma 122(H) 10 - 35 U/L 06/10/2024 6:10 AM EDT [facility] Alkaline Phosphatase, Plasma 258(H) 35 - 104 U/L 06/10/2024 6:10 AM EDT [facility] Total Bilirubin, Plasma 0.3 0.2 - 1.1 mg/dL 06/10/2024 6:10 AM EDT [facility] eGFRcr 110.1 mL/min/1.7 3m*2 06/10/2024 6:10 AM EDT [facility] Comment:Reported eGFRcr in m L/min/1.73m2 is based the CKD-EPI 2020 equation that does not use a race coefficient. Blood Venous blood specimen / Unknown Venipuncture / Unknown 06/10/2024 4:28 AM EDT 06/10/2024 5:41 AM EDT us Dulce Alamo APRN LAB BLOOD ORDERABLES Final R esult [facility] [address] [place] [address] * (ABNORMAL) Magnesium, Plasma (06/10/2024 4:28 AM EDT) Magnesium, Plasma 1.8(L) 1.9 - 2.4 mg/dL 06/10/2024 6:10 AM EDT [facility] Blood Venous blood specimen / Unknown Venipuncture / Unknown 06/10/2024 4:28 AM EDT 06/10/2024 5:41 AM EDT us Dulce Alamo APRN LAB BLOOD ORDERABLES Final R esult [facility] [address] [place] [address] * (ABNORMAL) CBC W/O Differential (06/10/2024 4:28 AM EDT) WBC Count 20.16(H) 3.70 - 10.30 10*3/uL LAB HEMATOLOGY METHOD 06/10/2024 5:54 AM EDT [facility] RBC Count 3.43(L) 3.90 - 5.20 10*6/uL LAB HEMATOLOGY METHOD 06/10/2024 5:54 AM EDT [facility] HGB 10.2(L) 11.2 - 15.7 g/dL LAB HEMATOLOGY METHOD 06/10/2024 5:54 AM EDT [facility] HCT 32.0(L) 34.0 - 45.0 % LAB HEMATOLOGY METHOD 06/10/2024 5:54 AM EDT [facility] Platelet Count 478(H) 155 - 369 10*3/uL LAB HEMATOLOGY METHOD 06/10/2024 5:54 AM EDT [facility] MCV 93 79 - 98 fL LAB HEMATOLOGY METHOD 06/10/2024 5:54 AM EDT [facility] MCH 29.7 26.0 - 32.0 pg LAB HEMATOLOGY METHOD 06/10/2024 5:54 AM EDT [facility] MCHC 31.9 30.7 - 35.5 g/dL LAB HEMATOLOGY METHOD 06/10/2024 5:54 AM EDT [facility] RDW 15.6(H) 11.5 - 14.5 % LAB HEMATOLOGY METHOD 06/10/2024 5:54 AM EDT [facility] MPV 9.2 8.8 - 12.5 fL LAB HEMATOLOGY METHOD 06/10/2024 5:54 AM EDT [facility] nRBC 0.0 <=0.0 per 100 WBCs LAB HEMATOLOGY METHOD 06/10/2024 5:54 AM EDT [facility] Blood Venous blood specimen / Unknown Venipuncture / Unknown 06/10/2024 4:28 AM EDT 06/10/2024 5:43 AM EDT us Dulce Alamo APRN LAB BLOOD ORDERABLES Final R esult [facility] [address] [place] [address] * POCT glucose meter (06/09/2024 5:22 PM EDT) [facility] POCT Glucose 98 74 - 99 mg/dL [...] Comment 06/09/2024 7:33 PM EDT [facility] 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 Yonny Urbano 7:33 PM EDT [facility] Device ID [id number] 06/09/2024 7:33 PM EDT [facility] Specimen Type POC Capillary 06/09/2024 7:33 PM EDT [facility] Blood Capillary blood specimen / Unknown 06/09/2024 5:22 PM EDT 06/09/2024 7:33 PM EDT us Maite Austin MD LAB POINT OF CARE TE ST DOCKED DEVICE UNSOLICITED RESULTS Final Result [facility] [address] [place] [address] * (ABNORMAL) POCT glucose meter (06/09/2024 12:19 [...] for testing. Comment 06/09/2024 12:22 PM EDT [facility] 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 Yonny Urbano 12:22 PM EDT [facility] Device ID [id number] 06/09/2024 12:22 PM EDT [facility] Specimen Type POC Capillary 06/09/2024 12:22 PM EDT [facility] Blood Capillary blood specimen / Unknown 06/09/2024 12:19 PM EDT 06/09/2024 12:22 PM EDT Maite Austin MD LAB POINT OF CARE TE ST DOCKED DEVICE UNSOLICITED RESULTS Final Result [facility] [address] [place] [address] * XR Chest 1 View (06/09/2024 6:54 [...] on 06/09/2024 10:12 AM us Dulce Alamo ADMISSIONS SUPERVISOR IMG XR PROCEDURES Final Resu lt * [...] for testing. Comment 06/09/2024 6:35 AM EDT [facility] 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 Brooklyn Goldsmith 06/09/2024 6:35 AM EDT [facility] Device ID [id number] 06/09/2024 6:35 AM EDT [facility] Specimen Type POC Capillary 06/09/2024 6:35 AM EDT [facility] Blood Capillary blood specimen / Unknown 06/09/2024 6:33 AM EDT 06/09/2024 6:35 AM EDT us Maite Austin MD LAB POINT OF CARE TE ST DOCKED DEVICE UNSOLICITED RESULTS Final Result [facility] [address] [place] [address] * Magnesium, Plasma (06/09/2024 1:27 AM EDT) Pathologist [facility] Magnesium, Plasma 1.9 1.9 - 2.4 mg/dL 06/09/2024 2:04 AM EDT [facility] Blood Venous blood specimen / Unknown Venipuncture / Unknown 06/09/2024 1:27 AM EDT 06/09/2024 1:35 AM EDT us Dulce Alamo ADMISSIONS SUPERVISOR LAB BLOOD ORDERABLES Final R esult Performing Organization Address [facility] Co de Phone Number [facility] [address] [place] [address] * (ABNORMAL) Basic Metabolic Panel, Plasma (06/09/2024 1:27 AM EDT) Glucose, Plasma 116(H) 74 - 99 mg/dL 06/09/2024 2:04 AM EDT [facility] BUN, Plasma 11 7 - 21 mg/dL 06/09/2024 2:04 AM EDT [facility] Creatinine, Plasma 0.48(L) 0.60 - 1.10 mg/dL 06/09/2024 2:04 AM EDT [facility] BUN/Creatinine Ratio 23 06/09/2024 2:04 AM EDT [facility] Sodium, Plasma 130(L) 136 - 145 mmol/L 06/09/2024 2:04 AM EDT [facility] Potassium, Plasma 4.3 3.6 - 4.9 mmol/L 06/09/2024 2:04 AM EDT [facility] Chloride, Plasma 98 97 - 107 mmol/L 06/09/2024 2:04 AM EDT [facility] CO2, Plasma 26 22 - 29 mmol/L 06/09/2024 2:04 AM EDT [facility] Anion Gap 6 6 - 16 mmol/L 06/09/2024 2:04 AM EDT [facility] Total Calcium, Plasma 7.9(L) 8.9 - 10.2 mg/dL 06/09/2024 2:04 AM EDT [facility] eGFRcr 112.7 mL/min/1.7 3m*2 06/09/2024 2:04 AM EDT [facility] Comment:Reported eGFRcr in m L/min/1.73m2 is based the CKD-EPI 2020 equation that does not use a race coefficient. Blood Venous blood specimen / Unknown Venipuncture / Unknown 06/09/2024 1:27 AM EDT 06/09/2024 1:35 AM EDT us Dulce Alamo ADMISSIONS SUPERVISOR LAB BLOOD ORDERABLES Final R esult [facility] [address] [place] [address] * (ABNORMAL) CBC W/O Differential (06/09/2024 1:27 AM EDT) WBC Count 12.12(H) 3.70 - 10.30 10*3/uL LAB HEMATOLOGY METHOD 06/09/2024 1:43 AM EDT [facility] RBC Count 3.23(L) 3.90 - 5.20 10*6/uL LAB HEMATOLOGY METHOD 06/09/2024 1:43 AM EDT [facility] HGB 9.4(L) 11.2 - 15.7 g/dL LAB HEMATOLOGY METHOD 06/09/2024 1:43 AM EDT [facility] HCT 29.9(L) 34.0 - 45.0 % LAB HEMATOLOGY METHOD 06/09/2024 1:43 AM EDT [facility] Platelet Count 471(H) 155 - 369 10*3/uL LAB HEMATOLOGY METHOD 06/09/2024 1:43 AM EDT [facility] MCV 93 79 - 98 fL LAB HEMATOLOGY METHOD 06/09/2024 1:43 AM EDT [facility] MCH 29.1 26.0 - 32.0 pg LAB HEMATOLOGY METHOD 06/09/2024 1:43 AM EDT [facility] MCHC 31.4 30.7 - 35.5 g/dL LAB HEMATOLOGY METHOD 06/09/2024 1:43 AM EDT [facility] RDW 15.7(H) 11.5 - 14.5 % LAB HEMATOLOGY METHOD 06/09/2024 1:43 AM EDT [facility] MPV 9.1 8.8 - 12.5 fL LAB HEMATOLOGY METHOD 06/09/2024 1:43 AM EDT [facility] nRBC 0.0 <=0.0 per 100 WBCs LAB HEMATOLOGY METHOD 06/09/2024 1:43 AM EDT [facility] Blood Venous blood specimen / Unknown Venipuncture / Unknown 06/09/2024 1:27 AM EDT 06/09/2024 1:35 AM EDT us Dulce Alamo APRN LAB BLOOD ORDERABLES Final R esult Performing Organization Address City/[facility]/ZIP Co de Phone Number [facility] [address] [place] [phone] * (ABNORMAL) POCT glucose meter (06/08/2024 11:28 [...] 06/08/2024 11:30 PM EDT [facility] J[employer] 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 Brooklyn Goldsmith 06/08/2024 11:30 PM EDT [facility]ARE LAB Device ID [id number] 06/08/2024 11:30 PM EDT [facility] Specimen Type POC Capillary 06/08/2024 11:30 PM EDT [facility] Blood Capillary blood specimen / Unknown 06/08/2024 11:28 PM EDT 06/08/2024 11:30 PM EDT us Maite Austin MD LAB POINT OF CARE TE ST DOCKED DEVICE UNSOLICITED RESULTS Final Result Performing Organization Address City/[facility]/ZIP Co de Phone Number [facility] [address] [place] [address] * (ABNORMAL) POCT glucose meter (06/08/2024 12:14 PM EDT) [facility] POCT Glucose 128(H) 74 - 99 mg/dL [...] Comment 06/08/2024 12:15 PM EDT [facility] J[employer] 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 Shira Gutierrez 025 12:15 PM EDT [facility] Device ID [id number] 06/08/2024 12:15 PM EDT [facility] Specimen Type POC Capillary 06/08/2024 12:15 PM EDT [facility] Blood Capillary blood specimen / Unknown 06/08/2024 12:14 PM EDT 06/08/2024 12:15 PM EDT us Maite Austin MD LAB POINT OF CARE TE ST DOCKED DEVICE UNSOLICITED RESULTS Final Result Performing Organization Address City/[facility]/ZIP Co de Phone Number [facility] [address] [place] [address] * Magnesium, Plasma (06/08/2024 5:44 AM EDT) [facility] Magnesium, Plasma 1.9 1.9 - 2.4 mg/dL 06/08/2024 6:25 AM EDT [facility] Blood Venous blood specimen / Unknown Venipuncture / Unknown 06/08/2024 5:44 AM EDT 06/08/2024 5:57 AM EDT us Dulce Alamo APRN LAB BLOOD ORDERABLES Final R esult [facility] [address] [place] [address] * (ABNORMAL) Basic Metabolic Panel, Plasma (06/08/2024 5:44 AM EDT) Glucose, Plasma 114(H) 74 - 99 mg/dL 06/08/2024 6:25 AM EDT [facility] BUN, Plasma 11 7 - 21 mg/dL 06/08/2024 6:25 AM EDT [facility] Creatinine, Plasma 0.46(L) 0.60 - 1.10 mg/dL 06/08/2024 6:25 AM EDT [facility] BUN/Creatinine Ratio 24 06/08/2024 6:25 AM EDT [facility] Sodium, Plasma 133(L) 136 - 145 mmol/L 06/08/2024 6:25 AM EDT [facility] Potassium, Plasma 3.5(L) 3.6 - 4.9 mmol/L 06/08/2024 6:25 AM EDT [facility] Chloride, Plasma 99 97 - 107 mmol/L 06/08/2024 6:25 AM EDT [facility] CO2, Plasma 27 22 - 29 mmol/L 06/08/2024 6:25 AM EDT [facility] Anion Gap 7 6 - 16 mmol/L 06/08/2024 6:25 AM EDT [facility] Total Calcium, Plasma 7.8(L) 8.9 - 10.2 mg/dL 06/08/2024 6:25 AM EDT [facility] eGFRcr 113.9 mL/min/1.7 3m*2 06/08/2024 6:25 AM EDT [facility] Comment:Reported eGFRcr in m L/min/1.73m2 is based the CKD-EPI 2020 equation that does not use a race coefficient. Blood Venous blood specimen / Unknown Venipuncture / Unknown 06/08/2024 5:44 AM EDT 06/08/2024 5:57 AM EDT us Dulce Alamo APRN LAB BLOOD ORDERABLES Final R esult [facility] [address] [place] [address] * (ABNORMAL) CBC W/O Differential (06/08/2024 5:44 AM EDT) [facility] Signature WBC Count 14.57(H) 3.70 - 10.30 10*3/uL LAB HEMATOLOGY METHOD 06/08/2024 6:07 AM EDT [facility] RBC Count 3.08(L) 3.90 - 5.20 10*6/uL LAB HEMATOLOGY METHOD 06/08/2024 6:07 AM EDT [facility] HGB 9.2(L) 11.2 - 15.7 g/dL LAB HEMATOLOGY METHOD 06/08/2024 6:07 AM EDT [facility] HCT 28.4(L) 34.0 - 45.0 % LAB HEMATOLOGY METHOD 06/08/2024 6:07 AM EDT [facility] Platelet Count 492(H) 155 - 369 10*3/uL LAB HEMATOLOGY METHOD 06/08/2024 6:07 AM EDT [facility] MCV 92 79 - 98 fL LAB HEMATOLOGY METHOD 06/08/2024 6:07 AM EDT [facility] MCH 29.9 26.0 - 32.0 pg LAB HEMATOLOGY METHOD 06/08/2024 6:07 AM EDT [facility] MCHC 32.4 30.7 - 35.5 g/dL LAB HEMATOLOGY METHOD 06/08/2024 6:07 AM EDT [facility] RDW 15.6(H) 11.5 - 14.5 % LAB HEMATOLOGY METHOD 06/08/2024 6:07 AM EDT [facility] MPV 8.9 8.8 - 12.5 fL LAB HEMATOLOGY METHOD 06/08/2024 6:07 AM EDT [facility] nRBC 0.0 <=0.0 per 100 WBCs LAB HEMATOLOGY METHOD 06/08/2024 6:07 AM EDT [facility] Blood Venous blood specimen / Unknown Venipuncture / Unknown 06/08/2024 5:44 AM EDT 06/08/2024 5:58 AM EDT us Dulce Alamo APRN LAB BLOOD ORDERABLES Final R esult [facility] [address] [place] [address] * XR Abdomen 1 View (06/08/2024 5:31 [...] MD on 06/08/2024 8:01 AM us Dulce Lois Alamo ADMISSIONS SUPERVISOR IMG XR PROCEDURES Final Resu lt * POCT glucose meter (06/07/2024 5:13 PM EDT) [facility] POCT Glucose 97 74 - 99 mg/dL [...] Comment 06/07/2024 5:15 PM EDT [facility] J[employer] 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 Pamela Tang 06/07/2024 5:15 PM EDT [facility] LAB Device ID [id number] 06/07/2024 5:15 PM EDT [facility] Specimen Type POC Capillary 06/07/2024 5:15 PM EDT [facility] Blood Capillary blood specimen / Unknown 06/07/2024 5:13 PM EDT 06/07/2024 5:15 PM EDT Maite Austin MD LAB POINT OF CARE TE ST DOCKED DEVICE UNSOLICITED RESULTS Final Result Performing Organization Address City/State/[facility] Co de Phone Number [facility] [address] [place] [address] * (ABNORMAL) POCT glucose meter (06/07/2024 2:55 PM EDT) [facility] POCT Glucose 117(H) 74 - 99 mg/dL [...] Comment 06/07/2024 2:56 PM EDT [facility] J[employer] 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 Pamela Tang 06/07/2024 2:56 PM EDT HEALTH[facility]ARE LAB Device ID [id number] 06/07/2024 2:56 PM EDT [facility] Specimen Type POC Capillary 06/07/2024 2:56 PM EDT [facility] Blood Capillary blood specimen / Unknown 06/07/2024 2:55 PM EDT 06/07/2024 2:56 PM EDT us Maite Austin MD LAB POINT OF CARE TE ST DOCKED DEVICE UNSOLICITED RESULTS Final Result [facility] [address] [place] [address] * Magnesium (06/07/2024 6:22 AM EDT) Magnesium, Plasma 1.9 1.9 - 2.4 mg/dL 06/07/2024 6:57 AM EDT [facility] Blood Venous blood specimen / Unknown Venipuncture / Unknown 06/07/2024 6:22 AM EDT 06/07/2024 6:26 AM EDT us Dulce Alamo APRN LAB BLOOD ORDERABLES Final R esult [facility] [address] [place] [address] * (ABNORMAL) Basic Metabolic Panel, Plasma (06/07/2024 6:22 AM EDT) Glucose, Plasma 124(H) 74 - 99 mg/dL 06/07/2024 6:57 AM EDT [facility] BUN, Plasma 13 7 - 21 mg/dL 06/07/2024 6:57 AM EDT [facility] Creatinine, Plasma 0.44(L) 0.60 - 1.10 mg/dL 06/07/2024 6:57 AM EDT [facility] BUN/Creatinine Ratio 30 06/07/2024 6:57 AM EDT [facility] Sodium, Plasma 133(L) 136 - 145 mmol/L 06/07/2024 6:57 AM EDT [facility] Potassium, Plasma 3.7 3.6 - 4.9 mmol/L 06/07/2024 6:57 AM EDT [facility] Chloride, Plasma 99 97 - 107 mmol/L 06/07/2024 6:57 AM EDT [facility] CO2, Plasma 26 22 - 29 mmol/L 06/07/2024 6:57 AM EDT [facility] Anion Gap 8 6 - 16 mmol/L 06/07/2024 6:57 AM EDT [facility] Total Calcium, Plasma 7.8(L) 8.9 - 10.2 mg/dL 06/07/2024 6:57 AM EDT [facility] eGFRcr 115.1 mL/min/1.7 3m*2 06/07/2024 6:57 AM EDT [facility] Comment:Reported eGFRcr in m L/min/1.73m2 is based the CKD-EPI 2020 equation that does not use a race coefficient. Blood Venous blood specimen / Unknown Venipuncture / Unknown 06/07/2024 6:22 AM EDT 06/07/2024 6:26 AM EDT us Dulce Alamo ADMISSIONS SUPERVISOR LAB BLOOD ORDERABLES Final R esult [facility] [address] [place] [address] * (ABNORMAL) CBC and Differential (06/07/2024 6:22 AM EDT) WBC Count 16.90(H) 3.70 - 10.30 10*3/uL LAB HEMATOLOGY METHOD 06/07/2024 6:34 AM EDT [facility] RBC Count 3.05(L) 3.90 - 5.20 10*6/uL LAB HEMATOLOGY METHOD 06/07/2024 6:34 AM EDT [facility] HGB 9.0(L) 11.2 - 15.7 g/dL LAB HEMATOLOGY METHOD 06/07/2024 6:34 AM EDT [facility] HCT 28.4(L) 34.0 - 45.0 % LAB HEMATOLOGY METHOD 06/07/2024 6:34 AM EDT [facility] Platelet Count 529(H) 155 - 369 10*3/uL LAB HEMATOLOGY METHOD 06/07/2024 6:34 AM EDT [facility] MCV 93 79 - 98 fL LAB HEMATOLOGY METHOD 06/07/2024 6:34 AM EDT [facility] MCH 29.5 26.0 - 32.0 pg LAB HEMATOLOGY METHOD 06/07/2024 6:34 AM EDT [facility] MCHC 31.7 30.7 - 35.5 g/dL LAB HEMATOLOGY METHOD 06/07/2024 6:34 AM EDT [facility] RDW 15.7(H) 11.5 - 14.5 % LAB HEMATOLOGY METHOD 06/07/2024 6:34 AM EDT [facility] MPV 9.0 8.8 - 12.5 fL LAB HEMATOLOGY METHOD 06/07/2024 6:34 AM EDT [facility] nRBC 0.0 <=0.0 per 100 WBCs LAB HEMATOLOGY METHOD 06/07/2024 6:34 AM EDT [facility] Differential Type Automated LAB HEMATOLOGY METHOD 06/07/2024 6:34 AM EDT [facility] Neutrophils % 75 % LAB HEMATOLOGY METHOD 06/07/2024 6:34 AM EDT [facility] Lymphocytes % 12 % LAB HEMATOLOGY METHOD 06/07/2024 6:34 AM EDT [facility] Monocytes % 8 % LAB HEMATOLOGY METHOD 06/07/2024 6:34 AM EDT [facility] Eosinophils % 1 % LAB HEMATOLOGY METHOD 06/07/2024 6:34 AM EDT [facility] Basophils % 1 % LAB HEMATOLOGY METHOD 06/07/2024 6:34 AM EDT [facility] Immature Granulocytes % 3 % LAB HEMATOLOGY METHOD 06/07/2024 6:34 AM EDT [facility] Neutrophils Absolute 12.84(H) 1.60 - 6.10 10*3/uL LAB HEMATOLOGY METHOD 06/07/2024 6:34 AM EDT [facility] Lymphocytes Absolute 2.01 1.20 - 3.90 10*3/uL LAB HEMATOLOGY METHOD 06/07/2024 6:34 AM EDT [facility] Monocytes Absolute 1.29(H) 0.30 - 0.90 10*3/uL LAB HEMATOLOGY METHOD 06/07/2024 6:34 AM EDT [facility] Eosinophils Absolute 0.14 0.00 - 0.50 10*3/uL LAB HEMATOLOGY METHOD 06/07/2024 6:34 AM EDT [facility] Basophils Absolute 0.14(H) 0.00 - 0.10 10*3/uL LAB HEMATOLOGY METHOD 06/07/2024 6:34 AM EDT [facility] Immature Granulocytes Absolute 0.48(H) 0.00 - 0.06 10*3/uL LAB HEMATOLOGY METHOD 06/07/2024 6:34 AM EDT [facility] Blood Venous blood specimen / Unknown Venipuncture / Unknown 06/07/2024 6:22 AM EDT 06/07/2024 6:26 AM EDT Narrative [facility] - 06/07/2024 6:34 AM EDT Therapeutic decision making should be based on absolute values, rather than percentages. Dulce Alamo APRN LAB BLOOD ORDERABLES Final R esult [facility] [address] [place] [address] * (ABNORMAL) POCT glucose meter (06/06/2024 6:25 [...] 06/06/2024 6:27 PM EDT [facility] J[employer] 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 Brooklyn Goldsmith 06/06/2024 6:27 PM EDT HEALTH[facility]ARE LAB Device ID [id number] 06/06/2024 6:27 PM EDT [facility] Specimen Type POC Capillary 06/06/2024 6:27 PM EDT [facility] Blood Capillary blood specimen / Unknown 06/06/2024 6:25 PM EDT 06/06/2024 6:27 PM EDT Maite Austin MD LAB POINT OF CARE TE ST DOCKED DEVICE UNSOLICITED RESULTS Final Result Performing Organization Address [facility] de Phone Number [facility] [address] [place] [address] * (ABNORMAL) POCT glucose meter (06/06/2024 11:20 AM EDT) Pathologist [facility] POCT Glucose 135(H) 74 - 99 mg/dL [...] for testing. Comment 06/06/2024 11:25 AM EDT [facility] J[employer] 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 Henrry Saenz 11:25 AM EDT [facility] Device ID [id number] 06/06/2024 11:25 AM EDT [facility] Specimen Type POC Capillary 06/06/2024 11:25 AM EDT [facility] Blood Capillary blood specimen / Unknown 06/06/2024 11:20 AM EDT 06/06/2024 11:25 AM EDT us Maite Austin MD LAB POINT OF CARE TE ST DOCKED DEVICE UNSOLICITED RESULTS Final Result Performing Organization Address City/[facility] Co de Phone Number [facility] [address] [place] [address] * (ABNORMAL) POCT glucose meter (06/06/2024 5:49 AM EDT) Pathologist [facility] POCT Glucose 129(H) 74 - 99 mg/dL [...] Comment 06/06/2024 5:50 AM EDT [facility] J[employer] 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 Ashwin Odom 025 5:50 AM EDT [facility]ALTH[facility] LAB Device ID [id number] 06/06/2024 5:50 AM EDT [facility] Specimen Type POC Capillary 06/06/2024 5:50 AM EDT [facility] Blood Capillary blood specimen / Unknown 06/06/2024 5:49 AM EDT 06/06/2024 5:50 AM EDT us Maite Austin MD LAB POINT OF CARE TE ST DOCKED DEVICE UNSOLICITED RESULTS Final Result Performing Organization Address City/[facility]/ZIP Co de Phone Number [facility] [address] [place] [address] * N-Terminal Probnp, Plasma (06/06/2024 4:03 AM EDT) N-Terminal, PROBNP, Plasma 566 0 - 899 pg/mL 06/06/2024 5:20 AM EDT [facility] Blood Venous blood specimen / Unknown Venipuncture / Unknown 06/06/2024 4:03 AM EDT 06/06/2024 4:31 AM EDT us Dulce Alamo APRN LAB BLOOD ORDERABLES Final R esult [facility] [address] [place] [address] * Magnesium, Plasma (06/06/2024 4:03 AM EDT) Magnesium, Plasma 2.1 1.9 - 2.4 mg/dL 06/06/2024 5:20 AM EDT [facility] Blood Venous blood specimen / Unknown Venipuncture / Unknown 06/06/2024 4:03 AM EDT 06/06/2024 4:31 AM EDT Dulce Alamo ADMISSIONS SUPERVISOR LAB BLOOD ORDERABLES Final R esult [facility] [address] [place] [id number] * (ABNORMAL) Basic Metabolic Panel, Plasma (06/06/2024 4:03 AM EDT) Glucose, Plasma 406(H) 74 - 99 mg/dL 06/06/2024 5:20 AM EDT [facility] BUN, Plasma 11 7 - 21 mg/dL 06/06/2024 5:20 AM EDT [facility] Creatinine, Plasma 0.50(L) 0.60 - 1.10 mg/dL 06/06/2024 5:20 AM EDT [facility] BUN/Creatinine Ratio 06/06/2024 5:20 AM EDT [facility] Sodium, Plasma 130(L) 136 - 145 mmol/L 06/06/2024 5:20 AM EDT [facility] Potassium, Plasma 4.3 3.6 - 4.9 mmol/L 06/06/2024 5:20 AM EDT [facility] Chloride, Plasma 98 97 - 107 mmol/L 06/06/2024 5:20 AM EDT [facility] CO2, Plasma 23 22 - 29 mmol/L 06/06/2024 5:20 AM EDT [facility] Anion Gap 9 6 - 16 mmol/L 06/06/2024 5:20 AM EDT [facility] Total Calcium, Plasma 7.5(L) 8.9 - 10.2 mg/dL 06/06/2024 5:20 AM EDT [facility] eGFRcr 111.6 mL/min/1.7 3m*2 06/06/2024 5:20 AM EDT [facility] Comment:Reported eGFRcr in m L/min/1.73m2 is based the CKD-EPI 2020 equation that does not use a race coefficient. Blood Venous blood specimen / Unknown Venipuncture / Unknown 06/06/2024 4:03 AM EDT 06/06/2024 4:31 AM EDT Dulce Alamo APRN LAB BLOOD ORDERABLES Final R esult [facility] [address] [place] [address] * (ABNORMAL) CBC W/O Differential (06/06/2024 4:03 AM EDT) WBC Count 24.98(H) 3.70 - 10.30 10*3/uL LAB HEMATOLOGY METHOD 06/06/2024 4:56 AM EDT [facility] RBC Count 3.12(L) 3.90 - 5.20 10*6/uL LAB HEMATOLOGY METHOD 06/06/2024 4:56 AM EDT [facility] HGB 9.2(L) 11.2 - 15.7 g/dL LAB HEMATOLOGY METHOD 06/06/2024 4:56 AM EDT [facility] HCT 29.5(L) 34.0 - 45.0 % LAB HEMATOLOGY METHOD 06/06/2024 4:56 AM EDT [facility] Platelet Count 605(H) 155 - 369 10*3/uL LAB HEMATOLOGY METHOD 06/06/2024 4:56 AM EDT [facility] MCV 95 79 - 98 fL LAB HEMATOLOGY METHOD 06/06/2024 4:56 AM EDT [facility] MCH 29.5 26.0 - 32.0 pg LAB HEMATOLOGY METHOD 06/06/2024 4:56 AM EDT [facility] MCHC 31.2 30.7 - 35.5 g/dL LAB HEMATOLOGY METHOD 06/06/2024 4:56 AM EDT [facility] RDW 15.8(H) 11.5 - 14.5 % LAB HEMATOLOGY METHOD 06/06/2024 4:56 AM EDT [facility] MPV 9.5 8.8 - 12.5 fL LAB HEMATOLOGY METHOD 06/06/2024 4:56 AM EDT [facility] nRBC 0.0 <=0.0 per 100 WBCs LAB HEMATOLOGY METHOD 06/06/2024 4:56 AM EDT [facility] Blood Venous blood specimen / Unknown Venipuncture / Unknown 06/06/2024 4:03 AM EDT 06/06/2024 4:35 AM EDT us Dulce Alamo APRN LAB BLOOD ORDERABLES Final R esult Performing Organization Address City/[facility] Co de Phone Number [facility] [address] [place] [address] * (ABNORMAL) POCT glucose meter (06/05/2024 11:52 [...] for testing. Comment 06/05/2024 11:54 PM EDT [facility] 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 Dina Willis 11:54 PM EDT [facility]ALTH[facility] LAB Device ID [id number] 06/05/2024 11:54 PM EDT [facility] Specimen Type POC Capillary 06/05/2024 11:54 PM EDT [facility] Blood Capillary blood specimen / Unknown 06/05/2024 11:52 PM EDT 06/05/2024 11:54 PM EDT Maite Austin MD LAB POINT OF CARE TE ST DOCKED DEVICE UNSOLICITED RESULTS Final Result Performing Organization Address [facility] Co de Phone Number [facility] [address] [place] [address] * XR Abdomen 1 View (06/05/2024 4:12 [...] Camila Barth MD on 06/05/2024 5:00 PM Dulce Alamo ADMISSIONS SUPERVISOR IMG XR PROCEDURES Final Resu lt * [...] for testing. Comment 06/05/2024 12:01 PM EDT [facility] 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 ClydePamela evans 06/05/2024 12:01 PM EDT [facility] Device ID [id number] 06/05/2024 12:01 PM EDT HEALTHCARE LAB Specimen Type POC Capillary 06/05/2024 12:01 PM EDT [facility] Blood Capillary blood specimen / Unknown 06/05/2024 11:59 AM EDT 06/05/2024 12:01 PM EDT us Maite Austin MD LAB POINT OF CARE TE ST DOCKED DEVICE UNSOLICITED RESULTS Final Result Performing Organization Address City/[facility]/ZIP Co de Phone Number [facility] [address] [place] [address] * N-Terminal Probnp, Plasma (06/05/2024 6:12 AM EDT) N-Terminal, PROBNP, Plasma 581 0 - 899 pg/mL 06/05/2024 8:13 AM EDT [facility] Blood Venous blood specimen / Unknown Venipuncture / Unknown 06/05/2024 6:12 AM EDT 06/05/2024 6:45 AM EDT us Dulce Alamo ADMISSIONS SUPERVISOR LAB BLOOD ORDERABLES Final R esult Performing Organization Address City/[facility]/ZIP Co de Phone Number [facility] [address] [place] [address] * Magnesium, Plasma (06/05/2024 6:12 AM EDT) Magnesium, Plasma 2.0 1.9 - 2.4 mg/dL 06/05/2024 7:28 AM EDT [facility] Blood Venous blood specimen / Unknown Venipuncture / Unknown 06/05/2024 6:12 AM EDT 06/05/2024 6:45 AM EDT us Shola Sheridan ADMISSIONS SUPERVISOR LAB BLOOD ORDERABLES Final R esult Performing Organization Address [place]/[facility]/ZIP Co de Phone Number [facility] [address] [place] [address] * (ABNORMAL) Basic Metabolic Panel, Plasma (06/05/2024 6:12 AM EDT) Glucose, Plasma 125(H) 74 - 99 mg/dL 06/05/2024 7:28 AM EDT [facility] BUN, Plasma 13 7 - 21 mg/dL 06/05/2024 7:28 AM EDT [facility] Creatinine, Plasma 0.50(L) 0.60 - 1.10 mg/dL 06/05/2024 7:28 AM EDT [facility] [facility] BUN/Creatinine Ratio 06/05/2024 7:28 AM EDT [facility] Sodium, Plasma 133(L) 136 - 145 mmol/L 06/05/2024 7:28 AM EDT [facility] Potassium, Plasma 3.6 3.6 - 4.9 mmol/L 06/05/2024 7:28 AM EDT [facility] Chloride, Plasma 99 97 - 107 mmol/L 06/05/2024 7:28 AM EDT [facility] CO2, Plasma 26 22 - 29 mmol/L 06/05/2024 7:28 AM EDT [facility] Anion Gap 8 6 - 16 mmol/L 06/05/2024 7:28 AM EDT [facility] Total Calcium, Plasma 7.7(L) 8.9 - 10.2 mg/dL 06/05/2024 7:28 AM EDT [facility] eGFRcr 111.6 mL/min/1.7 3m*2 06/05/2024 7:28 AM EDT [facility] Comment:Reported eGFRcr in m L/min/1.73m2 is based the CKD-EPI 2020 equation that does not use a race coefficient. Blood Venous blood specimen / Unknown Venipuncture / Unknown 06/05/2024 6:12 AM EDT 06/05/2024 6:45 AM EDT us Shola Sheridan APRN LAB BLOOD ORDERABLES Final R esult [facility] [address] [place] [address] * (ABNORMAL) CBC W/O Differential (06/05/2024 6:12 AM EDT) WBC Count 19.81(H) 3.70 - 10.30 10*3/uL LAB HEMATOLOGY METHOD 06/05/2024 6:53 AM EDT [facility] RBC Count 3.13(L) 3.90 - 5.20 10*6/uL LAB HEMATOLOGY METHOD 06/05/2024 6:53 AM EDT [facility] HGB 9.3(L) 11.2 - 15.7 g/dL LAB HEMATOLOGY METHOD 06/05/2024 6:53 AM EDT [facility] HCT 29.0(L) 34.0 - 45.0 % LAB HEMATOLOGY METHOD 06/05/2024 6:53 AM EDT [facility] Platelet Count 643(H) 155 - 369 10*3/uL LAB HEMATOLOGY METHOD 06/05/2024 6:53 AM EDT [facility] MCV 93 79 - 98 fL LAB HEMATOLOGY METHOD 06/05/2024 6:53 AM EDT [facility] MCH 29.7 26.0 - 32.0 pg LAB HEMATOLOGY METHOD 06/05/2024 6:53 AM EDT [facility] MCHC 32.1 30.7 - 35.5 g/dL LAB HEMATOLOGY METHOD 06/05/2024 6:53 AM EDT [facility] RDW 15.7(H) 11.5 - 14.5 % LAB HEMATOLOGY METHOD 06/05/2024 6:53 AM EDT [facility] MPV 9.1 8.8 - 12.5 fL LAB HEMATOLOGY METHOD 06/05/2024 6:53 AM EDT [facility] nRBC 0.0 <=0.0 per 100 WBCs LAB HEMATOLOGY METHOD 06/05/2024 6:53 AM EDT [facility] Blood Venous blood specimen / Unknown Venipuncture / Unknown 06/05/2024 6:12 AM EDT 06/05/2024 6:45 AM EDT us Shola Sheridan ADMISSIONS SUPERVISOR LAB BLOOD ORDERABLES Final R esult [facility] [address] [place] [address] * (ABNORMAL) POCT glucose meter (06/05/2024 6:05 AM EDT) [facility] POCT Glucose 132(H) 74 - 99 mg/dL 06/05/2024 6:07 AM EDT [facility] Comment:Accuracy of a glucos [...] for testing. Comment 06/05/2024 6:07 AM EDT [facility] J[employer] 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 Leonarda Londono 6:07 AM EDT [facility] Device ID [id number] 06/05/2024 6:07 AM EDT [facility] Specimen Type POC Capillary 06/05/2024 6:07 AM EDT [facility] Blood Capillary blood specimen / Unknown 06/05/2024 6:05 AM EDT 06/05/2024 6:07 AM EDT us Maite Austin MD LAB POINT OF CARE TE ST DOCKED DEVICE UNSOLICITED RESULTS Final Result Performing Organization Address City/[facility]/ZIP Co de Phone Number [facility] [address] [place] [address] * (ABNORMAL) POCT glucose meter (06/05/2024 12:01 AM EDT) [facility] POCT Glucose 135(H) 74 - 99 mg/dL [...] Comment 06/05/2024 12:03 AM EDT [facility] [employer] 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 Leonarda Londono 12:03 AM EDT [facility] Device ID [id number] 06/05/2024 12:03 AM EDT [facility] Specimen Type POC Capillary 06/05/2024 12:03 AM EDT [facility] Blood Capillary blood specimen / Unknown 06/05/2024 12:01 AM EDT 06/05/2024 12:03 AM EDT us Maite Austin MD LAB POINT OF CARE TE ST DOCKED DEVICE UNSOLICITED RESULTS Final Result [facility] [address] [place] [address] * (ABNORMAL) POCT glucose meter (06/04/2024 5:42 PM EDT) [facility] POCT Glucose 106(H) 74 - 99 mg/dL [...] Comment 06/04/2024 5:44 PM EDT [facility] J[employer] 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 Yvette Reddn 06/05/19 5:44 PM EDT [facility] Device ID [id number] 06/04/2024 5:44 PM EDT [facility] Specimen Type POC Capillary 06/04/2024 5:44 PM EDT [facility] Blood Capillary blood specimen / Unknown 06/04/2024 5:42 PM EDT 06/04/2024 5:44 PM EDT Maite Austin MD LAB POINT OF CARE TE ST DOCKED DEVICE UNSOLICITED RESULTS Final Result Performing Organization Address [facility] Co de Phone Number [facility] [address] [place] [address] * (ABNORMAL) POCT glucose meter (06/04/2024 12:56 PM EDT) [facility] POCT Glucose 143(H) 74 - 99 mg/dL [...] 06/04/2024 12:58 PM EDT [facility] J[employer] 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 Yvette Reddn 06/05/19 12:58 PM EDT [facility] Device ID [id number] 06/04/2024 12:58 PM EDT [facility] Specimen Type POC Capillary 06/04/2024 12:58 PM EDT [facility] Blood Capillary blood specimen / Unknown 06/04/2024 12:56 PM EDT 06/04/2024 12:58 PM EDT Maite Austin MD LAB POINT OF CARE TE ST DOCKED DEVICE UNSOLICITED RESULTS Final Result Performing Organization Address City/[facility]/ZIP Co de Phone Number [facility] [address] [place] [address] * AFB Culture, Non Respiratory Source and Acid Fast Stain (06/04/2024 10:17 AM EDT) AFB Culture No Mycobacterial Growth at 6 Weeks 07/17/2024 11:29 AM EDT [facility] Acid Fast Stain No acid fast bacilli seen 07/17/2024 11:29 AM EDT [facility] Body Fluid Topography unknown / Unknown Non-blood Collection / Unknown 06/04/2024 10:17 AM EDT 06/04/2024 10:55 AM EDT us Maite Austin MD LAB MICROBIOLOGY - [facility] Final Result Performing Organization Address City/[facility]/ZIP Co de Phone Number [facility] [address] [place] [address] * (ABNORMAL) Body Fluid Culture and Gram Stain (06/04/2024 10:17 AM EDT) Culture No growth at day 4 2024 7:41 AM EDT [facility] Gram Stain Result No intact cells seen(A) 06/07/2024 7:41 AM EDT [facility] Gram Stain Result No polymorphonuclear leukocytes seen(A) 06/07/2024 7:41 AM EDT [facility] Gram Stain Result No organisms seen(A) 06/07/2024 7:41 AM EDT [facility] Body Fluid Topography unknown / Unknown Non-blood Collection / Unknown 06/04/2024 10:17 AM EDT 06/04/2024 10:55 AM EDT us Maite Austin MD LAB MICROBIOLOGY - GENERAL KUSUMCaden ABADIRA Final Result [facility] [address] [place] [address] * (ABNORMAL) Body Fluid Cell Count w/ Diff (06/04/2024 10:17 AM EDT) Color, Body fluid Brown LAB HEMATOLOGY METHOD 06/04/2024 5:36 PM EDT [facility] Appearance, Body fluid Cloudy(A) LAB HEMATOLOGY METHOD 06/04/2024 5:36 PM EDT [facility] Volume, Body fluid 5.0 cc LAB HEMATOLOGY METHOD 06/04/2024 5:36 PM EDT [facility] Fluid Container Specimen received in miscellaneous container LAB HEMATOLOGY METHOD 06/04/2024 5:36 PM EDT [facility] Red Blood Cell Count, Body fluid LAB HEMATOLOGY METHOD 06/04/2024 5:36 PM EDT [facility] Comment:Unable to quantitate due to cell deterioration. Total Nucleated Cell Count, Body fluid LAB HEMATOLOGY METHOD 06/04/2024 5:36 PM EDT [facility] Comment:Unable to quantitate due to cell deterioration. Neutrophils %, Body fluid LAB HEMATOLOGY METHOD 06/04/2024 5:36 PM EDT [facility] Comment:Unable to quantitate due to cell deterioration. Lymphocytes %, Body fluid LAB HEMATOLOGY METHOD 06/04/2024 5:36 PM EDT [facility] Comment:Unable to quantitate due to cell deterioration. Monocytes/Macr ophages %, Body fluid LAB HEMATOLOGY METHOD 06/04/2024 5:36 PM EDT [facility] Comment:Unable to quantitate due to cell deterioration. Eosinophils %, Body fluid LAB HEMATOLOGY METHOD 06/04/2024 5:36 PM EDT [facility] Comment:Unable to quantitate due to cell deterioration. Lining/Mesothe lial Cells %, Body fluid LAB HEMATOLOGY METHOD 06/04/2024 5:36 PM EDT [facility] Comment:Unable to quantitate due to cell deterioration. Neutrophils Absolute (PMN), Body fluid LAB HEMATOLOGY METHOD 06/04/2024 5:36 PM EDT [facility] Comment:Unable to quantitate due to cell deterioration. Lymphocytes Absolute, Body fluid LAB HEMATOLOGY METHOD 06/04/2024 5:36 PM EDT [facility] Comment:Unable to quantitate due to cell deterioration. Monocytes/Macr ophages Absolute, Body fluid LAB HEMATOLOGY METHOD 06/04/2024 5:36 PM EDT [facility] Comment:Unable to quantitate due to cell deterioration. Eosinophils Absolute, Body fluid LAB HEMATOLOGY METHOD 06/04/2024 5:36 PM EDT [facility] Comment:Unable to quantitate due to cell deterioration. Basophils Absolute, Body fluid LAB HEMATOLOGY METHOD 06/04/2024 5:36 PM EDT [facility] Comment:Unable to quantitate due to cell deterioration. Lining/Mesothe lial Cells Absolute, Body fluid LAB HEMATOLOGY METHOD 06/04/2024 5:36 PM EDT [facility] Comment:Unable to quantitate due to cell deterioration. Basophils %, Body fluid LAB HEMATOLOGY METHOD 06/04/2024 5:36 PM EDT [facility] Comment:Unable to quantitate due to cell deterioration. Body Fluid Topography unknown / Unknown Non-blood Collection / Unknown 06/04/2024 10:17 AM EDT 06/04/2024 10:51 AM EDT us Maite Austin MD LAB BODY FLUIDS AND STOOLS ORDERABLES NO SPECIMEN TYPE/SOURCE Final Result [facility] [address] [place] [address] * CT Guided Drain Placement Peritoneal or [...] the paracolic gutter presenting for drainage PHYSICIANS: staple processing machine operator: MAYTE ELMORE MD Secondary glue plant operator: None RAD DOSE: Total DLP 413 [...] the paracolic gutter presenting for drainage PHYSICIANS: staple processing machine operator: MAYTE ELMORE MD Secondary glue plant operator: None RAD DOSE: Total DLP 413 [...] well, and was transferred back to [facility] in good condition. Approximately 10 [...] Mayte Elmore MD on 06/04/2024 12:43 PM Lorena N Cheeks ADMISSIONS SUPERVISOR IMG CT PROCEDURES Final Resu lt * Magnesium, Plasma (06/04/2024 5:56 AM EDT) Pathologist [facility] Magnesium, Plasma 2.1 1.9 - 2.4 mg/dL 06/04/2024 7:14 AM EDT [facility] Blood Venous blood specimen / Unknown Venipuncture / Unknown 06/04/2024 5:56 AM EDT 06/04/2024 6:44 AM EDT us Shola Sheridan ADMISSIONS SUPERVISOR LAB BLOOD ORDERABLES Final R esult [facility] [address] [place] [address] * (ABNORMAL) Basic Metabolic Panel, Plasma (06/04/2024 5:56 AM EDT) Glucose, Plasma 105(H) 74 - 99 mg/dL 06/04/2024 7:14 AM EDT [facility] BUN, Plasma 12 7 - 21 mg/dL 06/04/2024 7:14 AM EDT [facility] Creatinine, Plasma 0.53(L) 0.60 - 1.10 mg/dL 06/04/2024 7:14 AM EDT [facility] BUN/Creatinine Ratio 23 06/04/2024 7:14 AM EDT [facility] Sodium, Plasma 133(L) 136 - 145 mmol/L 06/04/2024 7:14 AM EDT [facility] Potassium, Plasma 3.8 3.6 - 4.9 mmol/L 06/04/2024 7:14 AM EDT [facility] Chloride, Plasma 101 97 - 107 mmol/L 06/04/2024 7:14 AM EDT [facility] CO2, Plasma 24 22 - 29 mmol/L 06/04/2024 7:14 AM EDT [facility] Anion Gap 8 6 - 16 mmol/L 06/04/2024 7:14 AM EDT [facility] Total Calcium, Plasma 7.7(L) 8.9 - 10.2 mg/dL 06/04/2024 7:14 AM EDT [facility] eGFRcr 110.1 mL/min/1.7 3m*2 06/04/2024 7:14 AM EDT [facility] Comment:Reported eGFRcr in m L/min/1.73m2 is based the CKD-EPI 2020 equation that does not use a race coefficient. Blood Venous blood specimen / Unknown Venipuncture / Unknown 06/04/2024 5:56 AM EDT 06/04/2024 6:44 AM EDT us Shola Sheridan ADMISSIONS SUPERVISOR LAB BLOOD ORDERABLES Final R esult [facility] [address] [place] [address] * (ABNORMAL) CBC W/O Differential (06/04/2024 5:56 AM EDT) WBC Count 22.10(H) 3.70 - 10.30 10*3/uL LAB HEMATOLOGY METHOD 06/04/2024 6:52 AM EDT [facility] RBC Count 3.15(L) 3.90 - 5.20 10*6/uL LAB HEMATOLOGY METHOD 06/04/2024 6:52 AM EDT [facility] HGB 9.4(L) 11.2 - 15.7 g/dL LAB HEMATOLOGY METHOD 06/04/2024 6:52 AM EDT [facility] HCT 29.3(L) 34.0 - 45.0 % LAB HEMATOLOGY METHOD 06/04/2024 6:52 AM EDT [facility] Platelet Count 716(H) 155 - 369 10*3/uL LAB HEMATOLOGY METHOD 06/04/2024 6:52 AM EDT [facility] MCV 93 79 - 98 fL LAB HEMATOLOGY METHOD 06/04/2024 6:52 AM EDT [facility] MCH 29.8 26.0 - 32.0 pg LAB HEMATOLOGY METHOD 06/04/2024 6:52 AM EDT [facility] MCHC 32.1 30.7 - 35.5 g/dL LAB HEMATOLOGY METHOD 06/04/2024 6:52 AM EDT [facility] RDW 15.5(H) 11.5 - 14.5 % LAB HEMATOLOGY METHOD 06/04/2024 6:52 AM EDT [facility] MPV 9.4 8.8 - 12.5 fL LAB HEMATOLOGY METHOD 06/04/2024 6:52 AM EDT [facility] nRBC 0.0 <=0.0 per 100 WBCs LAB HEMATOLOGY METHOD 06/04/2024 6:52 AM EDT [facility] Blood Venous blood specimen / Unknown Venipuncture / Unknown 06/04/2024 5:56 AM EDT 06/04/2024 6:44 AM EDT us Shola Sheridan APRN LAB BLOOD ORDERABLES Final R esult Performing Organization Address City/[facility] Co de Phone Number [facility] [address] [place] [address] * (ABNORMAL) POCT glucose meter (06/03/2024 11:08 [...] Comment 06/03/2024 11:12 PM EDT [facility] J[employer] 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 Ian Vargasunuh 025 11:12 PM EDT [facility] LAB Device ID [id number] 06/03/2024 11:12 PM EDT [facility] Specimen Type POC Capillary 06/03/2024 11:12 PM EDT [facility] Blood Capillary blood specimen / Unknown 06/03/2024 11:08 PM EDT 06/03/2024 11:12 PM EDT us Maite Austin MD LAB POINT OF CARE TE ST DOCKED DEVICE UNSOLICITED RESULTS Final Result Performing Organization Address City/[facility]/ZIP Co de Phone Number [facility] [address] [place] [address] * (ABNORMAL) POCT glucose meter (06/03/2024 5:04 PM EDT) [facility] POCT Glucose 119(H) 74 - 99 mg/dL [...] Comment 06/03/2024 5:06 PM EDT [facility] J[employer] 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 Clyde Pamela 06/03/2024 5:06 PM EDT [facility] LAB Device ID [id number] 06/03/2024 5:06 PM EDT [facility] Specimen Type POC Capillary 06/03/2024 5:06 PM EDT [facility] Blood Capillary blood specimen / Unknown 06/03/2024 5:04 PM EDT 06/03/2024 5:06 PM EDT Maite Austin MD LAB POINT OF CARE TE ST DOCKED DEVICE UNSOLICITED RESULTS Final Result [facility] [address] [place] [address] * (ABNORMAL) POCT glucose meter (06/03/2024 11:48 AM EDT) [facility] POCT Glucose 123(H) 74 - 99 mg/dL [...] 06/03/2024 11:50 AM EDT [facility] J[employer] 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 Clyde Pamela 06/03/2024 11:50 AM EDT [facility] Device ID [id number] 06/03/2024 11:50 AM EDT [facility] LAB Specimen Type POC Capillary 06/03/2024 11:50 AM EDT [facility] Blood Capillary blood specimen / Unknown 06/03/2024 11:48 AM EDT 06/03/2024 11:50 AM EDT Maite Austin MD LAB POINT OF CARE TE ST DOCKED DEVICE UNSOLICITED RESULTS Final Result Performing Organization Address City/[facility] Co de Phone Number [facility] [address] [place] [address] * (ABNORMAL) POCT glucose meter (06/03/2024 7:54 AM EDT) Pathologist [facility] POCT Glucose 136(H) 74 - 99 mg/dL [...] Comment 06/03/2024 7:56 AM EDT [facility] J[employer] 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 Fernanda De Luna 7:56 AM EDT [facility] Device ID [id number] 06/03/2024 7:56 AM EDT [facility] Specimen Type POC Capillary 06/03/2024 7:56 AM EDT [facility] Blood Capillary blood specimen / Unknown 06/03/2024 7:54 AM EDT 06/03/2024 7:56 AM EDT us Maite Austin MD LAB POINT OF CARE TE ST DOCKED DEVICE UNSOLICITED RESULTS Final Result Performing Organization Address City/[facility] Co de Phone Number [facility] [address] [place] [address] * (ABNORMAL) Prealbumin (06/03/2024 1:08 AM EDT) Prealbumin, Plasma 16.8(L) 20.0 - 41.0 mg/dL 06/03/2024 1:49 AM EDT [facility] Blood Venous blood specimen / Unknown Venipuncture / Unknown 06/03/2024 1:08 AM EDT 06/03/2024 1:20 AM EDT Shola Sehridan APRN LAB BLOOD ORDERABLES Final R esult Performing Organization Address [facility]/ZIP Co de Phone Number [facility] [address] [place] [address] * Magnesium, Plasma (06/03/2024 1:08 AM EDT) Magnesium, Plasma 2.0 1.9 - 2.4 mg/dL 06/03/2024 1:49 AM EDT [facility] Blood Venous blood specimen / Unknown Venipuncture / Unknown 06/03/2024 1:08 AM EDT 06/03/2024 1:20 AM EDT Shola Sheridan APRN LAB BLOOD ORDERABLES Final R esult Performing Organization Address City/[facility]/ZIP Co de Phone Number [facility] [address] [place] [address] * (ABNORMAL) Basic Metabolic Panel, Plasma (06/03/2024 1:08 AM EDT) Glucose, Plasma 117(H) 74 - 99 mg/dL 06/03/2024 1:49 AM EDT [facility] BUN, Plasma 12 7 - 21 mg/dL 06/03/2024 1:49 AM EDT [facility] Creatinine, Plasma 0.48(L) 0.60 - 1.10 mg/dL 06/03/2024 1:49 AM EDT [facility] BUN/Creatinine Ratio 25 06/03/2024 1:49 AM EDT [facility] Sodium, Plasma 130(L) 136 - 145 mmol/L 06/03/2024 1:49 AM EDT [facility] Potassium, Plasma 3.3(L) 3.6 - 4.9 mmol/L 06/03/2024 1:49 AM EDT [facility] Chloride, Plasma 98 97 - 107 mmol/L 06/03/2024 1:49 AM EDT [facility] CO2, Plasma 23 22 - 29 mmol/L 06/03/2024 1:49 AM EDT [facility] Anion Gap 9 6 - 16 mmol/L 06/03/2024 1:49 AM EDT [facility] Total Calcium, Plasma 7.7(L) 8.9 - 10.2 mg/dL 06/03/2024 1:49 AM EDT [facility] eGFRcr 112.7 mL/min/1.7 3m*2 06/03/2024 1:49 AM EDT [facility] Comment:Reported eGFRcr in m L/min/1.73m2 is based the CKD-EPI 2020 equation that does not use a race coefficient. Blood Venous blood specimen / Unknown Venipuncture / Unknown 06/03/2024 1:08 AM EDT 06/03/2024 1:20 AM EDT Shola Sheridan APRN LAB BLOOD ORDERABLES Final R esult [facility] [address] [place] [address] * (ABNORMAL) CBC W/O Differential (06/03/2024 1:08 AM EDT) WBC Count 20.40(H) 3.70 - 10.30 10*3/uL LAB HEMATOLOGY METHOD 06/03/2024 1:27 AM EDT [facility] RBC Count 3.12(L) 3.90 - 5.20 10*6/uL LAB HEMATOLOGY METHOD 06/03/2024 1:27 AM EDT [facility] HGB 9.2(L) 11.2 - 15.7 g/dL LAB HEMATOLOGY METHOD 06/03/2024 1:27 AM EDT [facility] HCT 28.8(L) 34.0 - 45.0 % LAB HEMATOLOGY METHOD 06/03/2024 1:27 AM EDT [facility] Platelet Count 689(H) 155 - 369 10*3/uL LAB HEMATOLOGY METHOD 06/03/2024 1:27 AM EDT [facility] MCV 92 79 - 98 fL LAB HEMATOLOGY METHOD 06/03/2024 1:27 AM EDT [facility] MCH 29.5 26.0 - 32.0 pg LAB HEMATOLOGY METHOD 06/03/2024 1:27 AM EDT [facility] MCHC 31.9 30.7 - 35.5 g/dL LAB HEMATOLOGY METHOD 06/03/2024 1:27 AM EDT [facility] RDW 15.6(H) 11.5 - 14.5 % LAB HEMATOLOGY METHOD 06/03/2024 1:27 AM EDT [facility] MPV 9.3 8.8 - 12.5 fL LAB HEMATOLOGY METHOD 06/03/2024 1:27 AM EDT [facility] nRBC 0.0 <=0.0 per 100 WBCs LAB HEMATOLOGY METHOD 06/03/2024 1:27 AM EDT [facility] Blood Venous blood specimen / Unknown Venipuncture / Unknown 06/03/2024 1:08 AM EDT 06/03/2024 1:19 AM EDT us Shola Sheridan ADMISSIONS SUPERVISOR LAB BLOOD ORDERABLES Final R esult [facility] [address] [place] [address] * (ABNORMAL) POCT glucose meter (06/02/2024 5:54 PM EDT) POCT Glucose 113(H) 74 - [...] 06/02/2024 5:59 PM EDT [facility] J[employer] 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 Yonny Urbano 5:59 PM EDT [facility]ALTH[facility] LAB Device ID [id number] 06/02/2024 5:59 PM EDT [facility] Specimen Type POC Capillary 06/02/2024 5:59 PM EDT [facility] Blood Capillary blood specimen / Unknown 06/02/2024 5:54 PM EDT 06/02/2024 5:59 PM EDT Maite Austin MD LAB POINT OF CARE TE ST DOCKED DEVICE UNSOLICITED RESULTS Final Result Performing Organization Address City/[facility]/ZIP Co de Phone Number [facility] [address] [place] [address] * (ABNORMAL) POCT glucose meter (06/02/2024 12:39 PM EDT) POCT Glucose 107(H) 74 - 99 mg/dL 06/02/2024 12:42 PM EDT [facility] Comment:Accuracy of a [...] Comment 06/02/2024 12:42 PM EDT [facility] J[employer] 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 Yonny Urbano 12:42 PM EDT [facility] LAB Device ID [id number] 06/02/2024 12:42 PM EDT [facility] Specimen Type POC Capillary 06/02/2024 12:42 PM EDT [facility] Blood Capillary blood specimen / Unknown 06/02/2024 12:39 PM EDT 06/02/2024 12:42 PM EDT Maite Austin MD LAB POINT OF CARE TE ST DOCKED DEVICE UNSOLICITED RESULTS Final Result [facility] [address] [place] [address] * (ABNORMAL) Basic metabolic panel (06/02/2024 7:08 AM EDT) Glucose, Plasma 111(H) 74 - 99 mg/dL 06/02/2024 8:10 AM EDT [facility] BUN, Plasma 13 7 - 21 mg/dL 06/02/2024 8:10 AM EDT [facility] Creatinine, Plasma 0.60 0.60 - 1.10 mg/dL 06/02/2024 8:10 AM EDT [facility] BUN/Creatinine Ratio 22 06/02/2024 8:10 AM EDT [facility] Sodium, Plasma 130(L) 136 - 145 mmol/L 06/02/2024 8:10 AM EDT [facility] Potassium, Plasma 3.6 3.6 - 4.9 mmol/L 06/02/2024 8:10 AM EDT [facility] Chloride, Plasma 97 97 - 107 mmol/L 06/02/2024 8:10 AM EDT [facility] CO2, Plasma 21(L) 22 - 29 mmol/L 06/02/2024 8:10 AM EDT [facility] Anion Gap 12 6 - 16 mmol/L 06/02/2024 8:10 AM EDT [facility] Total Calcium, Plasma 7.9(L) 8.9 - 10.2 mg/dL 06/02/2024 8:10 AM EDT [facility] eGFRcr 106.8 mL/min/1.7 3m*2 06/02/2024 8:10 AM EDT [facility] Comment:Reported eGFRcr in m L/min/1.73m2 is based the CKD-EPI 2020 equation that does not use a race coefficient. Blood Venous blood specimen / Unknown Venipuncture / Unknown 06/02/2024 7:08 AM EDT 06/02/2024 7:42 AM EDT us Maite Austin MD LAB BLOOD ORDERABLES Final Resu lt [facility] [address] [place] [address] * (ABNORMAL) Renal Function Panel, Plasma (06/02/2024 1:02 AM EDT) Glucose, Plasma 507(HH) 74 - 99 mg/dL 06/02/2024 1:47 AM EDT [facility] BUN, Plasma 11 7 - 21 mg/dL 06/02/2024 1:47 AM EDT [facility] Creatinine, Plasma 0.60 0.60 - 1.10 mg/dL 06/02/2024 1:47 AM EDT [facility] BUN/Creatinine Ratio 18 06/02/2024 1:47 AM EDT [facility] Sodium, Plasma 125(L) 136 - 145 mmol/L 06/02/2024 1:47 AM EDT [facility] Potassium, Plasma 4.8 3.6 - 4.9 mmol/L 06/02/2024 1:47 AM EDT [facility] Chloride, Plasma 93(L) 97 - 107 mmol/L 06/02/2024 1:47 AM EDT [facility] CO2, Plasma 20(L) 22 - 29 mmol/L 06/02/2024 1:47 AM EDT [facility] Anion Gap 12 6 - 16 mmol/L 06/02/2024 1:47 AM EDT [facility] Total Calcium, Plasma 7.9(L) 8.9 - 10.2 mg/dL 06/02/2024 1:47 AM EDT [facility] Phosphorus, Plasma 5.8(H) 2.5 - 4.5 mg/dL 06/02/2024 1:47 AM EDT [facility] Albumin, Plasma 2.2(L) 3.5 - 5.2 g/dL 06/02/2024 1:47 AM EDT [facility] eGFRcr 106.8 mL/min/1.7 3m*2 06/02/2024 1:47 AM EDT [facility] Comment:Reported eGFRcr in m L/min/1.73m2 is based the CKD-EPI 2020 equation that does not use a race coefficient. Blood Venous blood specimen / Unknown Venipuncture / Unknown 06/02/2024 1:02 AM EDT 06/02/2024 1:16 AM EDT us Lora Llanes APRN LAB BLOOD ORDERABLES Final Result [facility] [address] [place] [address] * Magnesium, Plasma (06/02/2024 1:02 AM EDT) Magnesium, Plasma 2.3 1.9 - 2.4 mg/dL 06/02/2024 1:47 AM EDT [facility] Blood Venous blood specimen / Unknown Venipuncture / Unknown 06/02/2024 1:02 AM EDT 06/02/2024 1:16 AM EDT us Maite Austin MD LAB BLOOD ORDERABLES Final Resu lt [facility] [address] [place] [address] * (ABNORMAL) CBC and Differential (06/02/2024 1:02 AM EDT) Pathologist [facility] WBC Count 33.90(H) 3.70 - 10.30 10*3/uL LAB HEMATOLOGY METHOD 06/02/2024 3:00 AM EDT [facility] RBC Count 3.08(L) 3.90 - 5.20 10*6/uL LAB HEMATOLOGY METHOD 06/02/2024 3:00 AM EDT [facility] HGB 9.2(L) 11.2 - 15.7 g/dL LAB HEMATOLOGY METHOD 06/02/2024 3:00 AM EDT [facility] HCT 28.7(L) 34.0 - 45.0 % LAB HEMATOLOGY METHOD 06/02/2024 3:00 AM EDT [facility] Platelet Count 702(H) 155 - 369 10*3/uL LAB HEMATOLOGY METHOD 06/02/2024 3:00 AM EDT [facility] MCV 93 79 - 98 fL LAB HEMATOLOGY METHOD 06/02/2024 3:00 AM EDT [facility] MCH 29.9 26.0 - 32.0 pg LAB HEMATOLOGY METHOD 06/02/2024 3:00 AM EDT [facility] MCHC 32.1 30.7 - 35.5 g/dL LAB HEMATOLOGY METHOD 06/02/2024 3:00 AM EDT [facility] RDW 15.9(H) 11.5 - 14.5 % LAB HEMATOLOGY METHOD 06/02/2024 3:00 AM EDT [facility] MPV 9.7 8.8 - 12.5 fL LAB HEMATOLOGY METHOD 06/02/2024 3:00 AM EDT [facility] nRBC 0.0 <=0.0 per 100 WBCs LAB HEMATOLOGY METHOD 06/02/2024 3:00 AM EDT [facility] Differential Type Automated LAB HEMATOLOGY METHOD 06/02/2024 3:00 AM EDT [facility] Neutrophils % 84 % LAB HEMATOLOGY METHOD 06/02/2024 3:00 AM EDT [facility] Lymphocytes % 6 % LAB HEMATOLOGY METHOD 06/02/2024 3:00 AM EDT [facility] Monocytes % 5 % LAB HEMATOLOGY METHOD 06/02/2024 3:00 AM EDT [facility] Eosinophils % 1 % LAB HEMATOLOGY METHOD 06/02/2024 3:00 AM EDT [facility] Basophils % 0 % LAB HEMATOLOGY METHOD 06/02/2024 3:00 AM EDT [facility] Immature Granulocytes % 4 % LAB HEMATOLOGY METHOD 06/02/2024 3:00 AM EDT [facility] Neutrophils Absolute 28.51(H) 1.60 - 6.10 10*3/uL LAB HEMATOLOGY METHOD 06/02/2024 3:00 AM EDT [facility] Lymphocytes Absolute 1.86 1.20 - 3.90 10*3/uL LAB HEMATOLOGY METHOD 06/02/2024 3:00 AM EDT [facility] Monocytes Absolute 1.83(H) 0.30 - 0.90 10*3/uL LAB HEMATOLOGY METHOD 06/02/2024 3:00 AM EDT [facility] Eosinophils Absolute 0.27 0.00 - 0.50 10*3/uL LAB HEMATOLOGY METHOD 06/02/2024 3:00 AM EDT [facility] Basophils Absolute 0.05 0.00 - 0.10 10*3/uL LAB HEMATOLOGY METHOD 06/02/2024 3:00 AM EDT [facility] Immature Granulocytes Absolute 1.38(H) 0.00 - 0.06 10*3/uL LAB HEMATOLOGY METHOD 06/02/2024 3:00 AM EDT [facility] Blood Venous blood specimen / Unknown Venipuncture / Unknown 06/02/2024 1:02 AM EDT 06/02/2024 1:16 AM EDT Narrative [facility] - 06/02/2024 3:00 AM EDT Therapeutic decision making should be based on absolute values, rather than percentages. us Maite Austin MD LAB BLOOD ORDERABLES Final Resu lt Performing Organization Address [facility] Co de Phone Number [facility] [address] [place] [address] * (ABNORMAL) POCT glucose meter (06/01/2024 11:06 PM EDT) POCT Glucose 104(H) 74 - 99 mg/dL 06/01/2024 11:07 PM EDT [facility] Comment:Accuracy of [...] Comment 06/01/2024 11:07 PM EDT [facility] 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 Tyler Sheffield 06/01/2024 11:07 PM EDT [facility] Device ID [id number] 06/01/2024 11:07 PM EDT [facility] Specimen Type POC Capillary 06/01/2024 11:07 PM EDT [facility] Blood Capillary blood specimen / Unknown 06/01/2024 11:06 PM EDT 06/01/2024 11:07 PM EDT us Maite Austin MD LAB POINT OF CARE TE ST DOCKED DEVICE UNSOLICITED RESULTS Final Result Performing Organization Address [facility]/ZIP Co de Phone Number [facility] [address] [place] [address] * CT Abdomen Pelvis w IV Contrast [...] MD on 06/01/2024 5:03 PM Shola Sheridan ADMISSIONS SUPERVISOR IMG CT PROCEDURES Final Resu lt * (ABNORMAL) POCT glucose meter (06/01/2024 11:48 AM EDT) POCT Glucose 101(H) 74 - 99 mg/dL 06/01/2024 11:50 AM EDT [facility] Comment:Accuracy of a glucos e result [...] for testing. Comment 06/01/2024 11:50 AM EDT [facility] 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 Brent Saenzr 11:50 AM EDT [facility] Device ID [id number] 06/01/2024 11:50 AM EDT [facility] Specimen Type POC Capillary 06/01/2024 11:50 AM EDT [facility] Blood Capillary blood specimen / Unknown 06/01/2024 11:48 AM EDT 06/01/2024 11:50 AM EDT us Maite Asutin MD LAB POINT OF CARE TE ST DOCKED DEVICE UNSOLICITED RESULTS Final Result Performing Organization Address City/[facility] Co de Phone Number [facility] [address] [place] [address] * (ABNORMAL) Procalcitonin (06/01/2024 8:42 AM EDT) Procalcitonin, Plasma 0.12(H) <0.09 ng/mL 06/01/2024 9:31 AM EDT [facility] Blood Venous blood specimen / Unknown Venipuncture / Unknown 06/01/2024 8:42 AM EDT 06/01/2024 8:52 AM EDT Narrative [facility] - 06/01/2024 9:31 AM EDT Procalcitonin [...] predict 28 day mortality risk. Please consult [email or web address] for more information. Test performed at [facility]. us Shola Sheridan APRN LAB BLOOD ORDERABLES Final R esult [facility] [address] [place] [address] * Lactate, venous (06/01/2024 8:42 AM EDT) Lactate, Venous, Whole Blood 0.9 0.5 - 2.2 mmol/L LAB HEMATOLOGY METHOD 06/01/2024 9:01 AM EDT [facility] Blood Venous blood specimen / Unknown Venipuncture / Unknown 06/01/2024 8:42 AM EDT 06/01/2024 8:59 AM EDT us Shola Sheridan APRN LAB BLOOD ORDERABLES Final R esult Performing Organization Address [facility] Co de Phone Number [facility] [address] [place] [address] * (ABNORMAL) POCT glucose meter (06/01/2024 6:42 AM EDT) [facility] POCT Glucose 106(H) 74 - 99 mg/dL 06/01/2024 6:51 AM EDT [facility] Comment:Accuracy of [...] Comment 06/01/2024 6:51 AM EDT [facility] 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 Jamshid CastellanosObedSandy Kirkpatrick 06/01/2024 6:51 AM EDT [facility] Device ID [id number] 06/01/2024 6:51 AM EDT [facility] Specimen Type POC Capillary 06/01/2024 6:51 AM EDT [facility] Blood Capillary blood specimen / Unknown 06/01/2024 6:42 AM EDT 06/01/2024 6:51 AM EDT us Maite Austin MD LAB POINT OF CARE TE ST DOCKED DEVICE UNSOLICITED RESULTS Final Result Performing Organization Address City/[facility] Co de Phone Number [facility] [address] [place] [address] * (ABNORMAL) Renal Function Panel, Plasma (06/01/2024 1:20 AM EDT) [facility] Glucose, Plasma 495(H) 74 - 99 mg/dL 06/01/2024 1:57 AM EDT [facility] BUN, Plasma 12 7 - 21 mg/dL 06/01/2024 1:57 AM EDT [facility] Creatinine, Plasma 0.54(L) 0.60 - 1.10 mg/dL 06/01/2024 1:57 AM EDT [facility] BUN/Creatinine Ratio 22 06/01/2024 1:57 AM EDT [facility] Sodium, Plasma 126(L) 136 - 145 mmol/L 06/01/2024 1:57 AM EDT [facility] Potassium, Plasma 4.9 3.6 - 4.9 mmol/L 06/01/2024 1:57 AM EDT [facility] Chloride, Plasma 95(L) 97 - 107 mmol/L 06/01/2024 1:57 AM EDT [facility] CO2, Plasma 20(L) 22 - 29 mmol/L 06/01/2024 1:57 AM EDT [facility] Anion Gap 11 6 - 16 mmol/L 06/01/2024 1:57 AM EDT [facility] Total Calcium, Plasma 8.0(L) 8.9 - 10.2 mg/dL 06/01/2024 1:57 AM EDT [facility] Phosphorus, Plasma 5.2(H) 2.5 - 4.5 mg/dL 06/01/2024 1:57 AM EDT [facility] Albumin, Plasma 2.2(L) 3.5 - 5.2 g/dL 06/01/2024 1:57 AM EDT [facility] eGFRcr 109.6 mL/min/1.7 3m*2 06/01/2024 1:57 AM EDT [facility] Comment:Reported eGFRcr in m L/min/1.73m2 is based the CKD-EPI 2020 equation that does not use a race coefficient. Blood Venous blood specimen / Unknown Venipuncture / Unknown 06/01/2024 1:20 AM EDT 06/01/2024 1:27 AM EDT us Lora Llanes ADMISSIONS SUPERVISOR LAB BLOOD ORDERABLES Final Result [facility] [address] [place] [address] * Magnesium, Plasma (06/01/2024 1:20 AM EDT) Magnesium, Plasma 2.3 1.9 - 2.4 mg/dL 06/01/2024 1:57 AM EDT [facility] Blood Venous blood specimen / Unknown Venipuncture / Unknown 06/01/2024 1:20 AM EDT 06/01/2024 1:27 AM EDT us Maite Austin MD LAB BLOOD ORDERABLES Final Resu lt [facility] [address] [place] [address] * (ABNORMAL) CBC and Differential (06/01/2024 1:20 AM EDT) Pathologist [facility] WBC Count 33.03(H) 3.70 - 10.30 10*3/uL LAB HEMATOLOGY METHOD 06/01/2024 2:43 AM EDT [facility] RBC Count 3.18(L) 3.90 - 5.20 10*6/uL LAB HEMATOLOGY METHOD 06/01/2024 2:43 AM EDT [facility] HGB 9.7(L) 11.2 - 15.7 g/dL LAB HEMATOLOGY METHOD 06/01/2024 2:43 AM EDT [facility] HCT 29.3(L) 34.0 - 45.0 % LAB HEMATOLOGY METHOD 06/01/2024 2:43 AM EDT [facility] Platelet Count 644(H) 155 - 369 10*3/uL LAB HEMATOLOGY METHOD 06/01/2024 2:43 AM EDT [facility] MCV 92 79 - 98 fL LAB HEMATOLOGY METHOD 06/01/2024 2:43 AM EDT [facility] MCH 30.5 26.0 - 32.0 pg LAB HEMATOLOGY METHOD 06/01/2024 2:43 AM EDT [facility] MCHC 33.1 30.7 - 35.5 g/dL LAB HEMATOLOGY METHOD 06/01/2024 2:43 AM EDT [facility] RDW 15.9(H) 11.5 - 14.5 % LAB HEMATOLOGY METHOD 06/01/2024 2:43 AM EDT [facility] MPV 9.6 8.8 - 12.5 fL LAB HEMATOLOGY METHOD 06/01/2024 2:43 AM EDT [facility] nRBC 0.0 <=0.0 per 100 WBCs LAB HEMATOLOGY METHOD 06/01/2024 2:43 AM EDT [facility] Differential Type Automated LAB HEMATOLOGY METHOD 06/01/2024 2:43 AM EDT [facility] Neutrophils % 81 % LAB HEMATOLOGY METHOD 06/01/2024 2:43 AM EDT [facility] Lymphocytes % 7 % LAB HEMATOLOGY METHOD 06/01/2024 2:43 AM EDT [facility] Monocytes % 6 % LAB HEMATOLOGY METHOD 06/01/2024 2:43 AM EDT [facility] Eosinophils % 1 % LAB HEMATOLOGY METHOD 06/01/2024 2:43 AM EDT [facility] Basophils % 1 % LAB HEMATOLOGY METHOD 06/01/2024 2:43 AM EDT [facility] Immature Granulocytes % 4 % LAB HEMATOLOGY METHOD 06/01/2024 2:43 AM EDT [facility] Neutrophils Absolute 26.89(H) 1.60 - 6.10 10*3/uL LAB HEMATOLOGY METHOD 06/01/2024 2:43 AM EDT [facility] Lymphocytes Absolute 2.39 1.20 - 3.90 10*3/uL LAB HEMATOLOGY METHOD 06/01/2024 2:43 AM EDT [facility] Monocytes Absolute 2.07(H) 0.30 - 0.90 10*3/uL LAB HEMATOLOGY METHOD 06/01/2024 2:43 AM EDT [facility] Eosinophils Absolute 0.22 0.00 - 0.50 10*3/uL LAB HEMATOLOGY METHOD 06/01/2024 2:43 AM EDT [facility] Basophils Absolute 0.15(H) 0.00 - 0.10 10*3/uL LAB HEMATOLOGY METHOD 06/01/2024 2:43 AM EDT [facility] Immature Granulocytes Absolute 1.31(H) 0.00 - 0.06 10*3/uL LAB HEMATOLOGY METHOD 06/01/2024 2:43 AM EDT [facility] Blood Venous blood specimen / Unknown Venipuncture / Unknown 06/01/2024 1:20 AM EDT 06/01/2024 1:28 AM EDT Narrative [facility] - 06/01/2024 2:43 AM EDT Therapeutic decision making should be based on absolute values, rather than percentages. us Maite Austin MD LAB BLOOD ORDERABLES Final Resu lt Performing Organization Address [facility] Co de Phone Number [facility] [address] [place] [address] * (ABNORMAL) POCT glucose meter (06/01/2024 12:21 AM EDT) [facility] POCT Glucose 110(H) 74 - 99 mg/dL [...] Comment 06/01/2024 12:29 AM EDT [facility] 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 Jamshid CastellanosObedPaulie 06/01/2024 12:29 AM EDT [facility] Device ID [id number] 06/01/2024 12:29 AM EDT [facility] Specimen Type POC Capillary 06/01/2024 12:29 AM EDT [facility] Blood Capillary blood specimen / Unknown 06/01/2024 12:21 AM EDT 06/01/2024 12:29 AM EDT us Maite Austin MD LAB POINT OF CARE TE ST DOCKED DEVICE UNSOLICITED RESULTS Final Result Performing Organization Address City/[facility]/ZIP Co de Phone Number [facility] [address] [place] [address] * POCT glucose meter (05/31/2024 6:17 PM EDT) [facility] POCT Glucose 94 74 - 99 mg/dL [...] for testing. Comment 05/31/2024 6:19 PM EDT [facility] 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 Henrry Saenz 6:19 PM EDT [facility] Device ID [id number] 05/31/2024 6:19 PM EDT [facility] Specimen Type POC Capillary 05/31/2024 6:19 PM EDT [facility] Blood Capillary blood specimen / Unknown 05/31/2024 6:17 PM EDT 05/31/2024 6:19 PM EDT Maite Austin MD LAB POINT OF CARE TE ST DOCKED DEVICE UNSOLICITED RESULTS Final Result Performing Organization Address City/[facility]/ZIP Co de Phone Number [facility] [address] [place] [address] * (ABNORMAL) POCT glucose meter (05/31/2024 11:15 AM EDT) [facility] POCT Glucose 115(H) 74 - 99 mg/dL [...] Comment 05/31/2024 11:17 AM EDT [facility] 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 Henrry Saenz 11:17 AM EDT [facility] Device ID [id number] 05/31/2024 11:17 AM EDT [facility] Specimen Type POC Capillary 05/31/2024 11:17 AM EDT [facility] Blood Capillary blood specimen / Unknown 05/31/2024 11:15 AM EDT 05/31/2024 11:17 AM EDT us Maite Austin MD LAB POINT OF CARE TE ST DOCKED DEVICE UNSOLICITED RESULTS Final Result [facility] [address] [place] [id number] * XR Chest 1 View (05/31/2024 4:32 [...] line in place with similar position compared topgreenviller study. Stable cardiac mediastinal silhouette. No consolidation. [...] - 899 pg/mL 05/31/2024 3:27 AM EDT [facility] Blood Blood sample taken from central line / Unknown (Central Line) Existing Catheter / Unknown 05/31/2024 2:50 AM EDT 05/31/2024 2:55 AM EDT us Dulce Lois Alamo ADMISSIONS SUPERVISOR LAB BLOOD ORDERABLES Final R esult [facility] [address] [place] [address] * (ABNORMAL) Renal Function Panel, Plasma (05/31/2024 2:50 AM EDT) Glucose, Plasma 107(H) 74 - 99 mg/dL 05/31/2024 3:27 AM EDT [facility] BUN, Plasma 13 7 - 21 mg/dL 05/31/2024 3:27 AM EDT [facility] Creatinine, Plasma 0.52(L) 0.60 - 1.10 mg/dL 05/31/2024 3:27 AM EDT [facility] BUN/Creatinine Ratio 25 05/31/2024 3:27 AM EDT [facility] Sodium, Plasma 129(L) 136 - 145 mmol/L 05/31/2024 3:27 AM EDT [facility] Potassium, Plasma 3.7 3.6 - 4.9 mmol/L 05/31/2024 3:27 AM EDT [facility] Chloride, Plasma 95(L) 97 - 107 mmol/L 05/31/2024 3:27 AM EDT [facility] CO2, Plasma 25 22 - 29 mmol/L 05/31/2024 3:27 AM EDT [facility] Anion Gap 9 6 - 16 mmol/L 05/31/2024 3:27 AM EDT [facility] Total Calcium, Plasma 8.3(L) 8.9 - 10.2 mg/dL 05/31/2024 3:27 AM EDT [facility] Phosphorus, Plasma 4.4 2.5 - 4.5 mg/dL 05/31/2024 3:27 AM EDT [facility] Albumin, Plasma 2.5(L) 3.5 - 5.2 g/dL 05/31/2024 3:27 AM EDT [facility] eGFRcr 110.6 mL/min/1.7 3m*2 05/31/2024 3:27 AM EDT [facility] Comment:Reported eGFRcr in m L/min/1.73m2 is based the CKD-EPI 2020 equation that does not use a race coefficient. Blood Blood sample taken from central line / Unknown (Central Line) Existing Catheter / Unknown 05/31/2024 2:50 AM EDT 05/31/2024 2:55 AM EDT us Lora Llanes APRN LAB BLOOD ORDERABLES Final Result Performing Organization Address [facility] Co de Phone Number [facility] [address] [place] [address] * Magnesium, Plasma (05/31/2024 2:50 AM EDT) Magnesium, Plasma 2.0 1.9 - 2.4 mg/dL 05/31/2024 3:27 AM EDT [facility] Blood Blood sample taken from central line / Unknown (Central Line) Existing Catheter / Unknown 05/31/2024 2:50 AM EDT 05/31/2024 2:55 AM EDT us Maite Austin MD LAB BLOOD ORDERABLES Final Resu lt Performing Organization Address City/[facility]/ZIP Co de Phone Number [facility] [address] [place] [address] * (ABNORMAL) CBC and Differential (05/31/2024 2:50 AM EDT) WBC Count 26.51(H) 3.70 - 10.30 10*3/uL LAB HEMATOLOGY METHOD 05/31/2024 3:03 AM EDT [facility] RBC Count 3.36(L) 3.90 - 5.20 10*6/uL LAB HEMATOLOGY METHOD 05/31/2024 3:03 AM EDT [facility] HGB 10.2(L) 11.2 - 15.7 g/dL LAB HEMATOLOGY METHOD 05/31/2024 3:03 AM EDT [facility] HCT 31.0(L) 34.0 - 45.0 % LAB HEMATOLOGY METHOD 05/31/2024 3:03 AM EDT [facility] Platelet Count 670(H) 155 - 369 10*3/uL LAB HEMATOLOGY METHOD 05/31/2024 3:03 AM EDT [facility] MCV 92 79 - 98 fL LAB HEMATOLOGY METHOD 05/31/2024 3:03 AM EDT [facility] MCH 30.4 26.0 - 32.0 pg LAB HEMATOLOGY METHOD 05/31/2024 3:03 AM EDT [facility] MCHC 32.9 30.7 - 35.5 g/dL LAB HEMATOLOGY METHOD 05/31/2024 3:03 AM EDT [facility] RDW 15.9(H) 11.5 - 14.5 % LAB HEMATOLOGY METHOD 05/31/2024 3:03 AM EDT [facility] MPV 9.8 8.8 - 12.5 fL LAB HEMATOLOGY METHOD 05/31/2024 3:03 AM EDT [facility] nRBC 0.0 <=0.0 per 100 WBCs LAB HEMATOLOGY METHOD 05/31/2024 3:03 AM EDT [facility] Differential Type Automated LAB HEMATOLOGY METHOD 05/31/2024 3:03 AM EDT [facility] Neutrophils % 74 % LAB HEMATOLOGY METHOD 05/31/2024 3:03 AM EDT [facility] Lymphocytes % 8 % LAB HEMATOLOGY METHOD 05/31/2024 3:03 AM EDT [facility] Monocytes % 9 % LAB HEMATOLOGY METHOD 05/31/2024 3:03 AM EDT [facility] Eosinophils % 1 % LAB HEMATOLOGY METHOD 05/31/2024 3:03 AM EDT [facility] Basophils % 1 % LAB HEMATOLOGY METHOD 05/31/2024 3:03 AM EDT [facility] Immature Granulocytes % 7 % LAB HEMATOLOGY METHOD 05/31/2024 3:03 AM EDT [facility] Neutrophils Absolute 19.86(H) 1.60 - 6.10 10*3/uL LAB HEMATOLOGY METHOD 05/31/2024 3:03 AM EDT [facility] Lymphocytes Absolute 2.08 1.20 - 3.90 10*3/uL LAB HEMATOLOGY METHOD 05/31/2024 3:03 AM EDT [facility] Monocytes Absolute 2.26(H) 0.30 - 0.90 10*3/uL LAB HEMATOLOGY METHOD 05/31/2024 3:03 AM EDT [facility] Eosinophils Absolute 0.26 0.00 - 0.50 10*3/uL LAB HEMATOLOGY METHOD 05/31/2024 3:03 AM EDT [facility] Basophils Absolute 0.15(H) 0.00 - 0.10 10*3/uL LAB HEMATOLOGY METHOD 05/31/2024 3:03 AM EDT [facility] Immature Granulocytes Absolute 1.90(H) 0.00 - 0.06 10*3/uL LAB HEMATOLOGY METHOD 05/31/2024 3:03 AM EDT [facility] Blood Blood sample taken from central line / Unknown (Central Line) Existing Catheter / Unknown 05/31/2024 2:50 AM EDT 05/31/2024 2:55 AM EDT Narrative [facility] - 05/31/2024 3:03 AM EDT Therapeutic decision making should be based on absolute values, rather than percentages. us Maite Austin MD LAB BLOOD ORDERABLES Final Resu lt [facility] [address] [place] [address] * LA NEGATIVE PRESSURE WOUND THERAPY DME >50 SQ [...] - 899 pg/mL 05/30/2024 2:27 PM EDT [facility] Blood Venous blood specimen / Unknown Venipuncture / Unknown 05/30/2024 5:13 AM EDT 05/30/2024 5:26 AM EDT us Dulce Alamo ADMISSIONS SUPERVISOR LAB BLOOD ORDERABLES Final R esult [facility] [address] [place] [address] * (ABNORMAL) Renal Function Panel, Plasma (05/30/2024 5:13 AM EDT) Glucose, Plasma 112(H) 74 - 99 mg/dL 05/30/2024 6:03 AM EDT [facility] BUN, Plasma 14 7 - 21 mg/dL 05/30/2024 6:03 AM EDT [facility] Creatinine, Plasma 0.52(L) 0.60 - 1.10 mg/dL 05/30/2024 6:03 AM EDT [facility] BUN/Creatinine Ratio 27 05/30/2024 6:03 AM EDT [facility] Sodium, Plasma 131(L) 136 - 145 mmol/L 05/30/2024 6:03 AM EDT [facility] Potassium, Plasma 3.7 3.6 - 4.9 mmol/L 05/30/2024 6:03 AM EDT [facility] Chloride, Plasma 96(L) 97 - 107 mmol/L 05/30/2024 6:03 AM EDT [facility] CO2, Plasma 24 22 - 29 mmol/L 05/30/2024 6:03 AM EDT [facility] Anion Gap 11 6 - 16 mmol/L 05/30/2024 6:03 AM EDT [facility] Total Calcium, Plasma 8.0(L) 8.9 - 10.2 mg/dL 05/30/2024 6:03 AM EDT [facility] Phosphorus, Plasma 4.3 2.5 - 4.5 mg/dL 05/30/2024 6:03 AM EDT [facility] Albumin, Plasma 2.3(L) 3.5 - 5.2 g/dL 05/30/2024 6:03 AM EDT [facility] eGFRcr 110.6 mL/min/1.7 3m*2 05/30/2024 6:03 AM EDT [facility] Comment:Reported eGFRcr in m L/min/1.73m2 is based the CKD-EPI 2020 equation that does not use a race coefficient. Blood Venous blood specimen / Unknown Venipuncture / Unknown 05/30/2024 5:13 AM EDT 05/30/2024 5:26 AM EDT us Lora Llanes APRN LAB BLOOD ORDERABLES Final Result [facility] [address] [place] [address] * Magnesium, Plasma (05/30/2024 5:13 AM EDT) Magnesium, Plasma 1.9 1.9 - 2.4 mg/dL 05/30/2024 6:03 AM EDT [facility] Blood Venous blood specimen / Unknown Venipuncture / Unknown 05/30/2024 5:13 AM EDT 05/30/2024 5:26 AM EDT us Maite Austin MD LAB BLOOD ORDERABLES Final Resu lt [facility] [address] [place] [address] * (ABNORMAL) CBC and Differential (05/30/2024 5:13 AM EDT) WBC Count 23.21(H) 3.70 - 10.30 10*3/uL LAB HEMATOLOGY METHOD 05/30/2024 5:38 AM EDT [facility] RBC Count 3.23(L) 3.90 - 5.20 10*6/uL LAB HEMATOLOGY METHOD 05/30/2024 5:38 AM EDT [facility] HGB 9.7(L) 11.2 - 15.7 g/dL LAB HEMATOLOGY METHOD 05/30/2024 5:38 AM EDT [facility] HCT 29.7(L) 34.0 - 45.0 % LAB HEMATOLOGY METHOD 05/30/2024 5:38 AM EDT [facility] Platelet Count 603(H) 155 - 369 10*3/uL LAB HEMATOLOGY METHOD 05/30/2024 5:38 AM EDT [facility] MCV 92 79 - 98 fL LAB HEMATOLOGY METHOD 05/30/2024 5:38 AM EDT [facility] MCH 30.0 26.0 - 32.0 pg LAB HEMATOLOGY METHOD 05/30/2024 5:38 AM EDT [facility] MCHC 32.7 30.7 - 35.5 g/dL LAB HEMATOLOGY METHOD 05/30/2024 5:38 AM EDT [facility] RDW 15.9(H) 11.5 - 14.5 % LAB HEMATOLOGY METHOD 05/30/2024 5:38 AM EDT [facility] MPV 9.8 8.8 - 12.5 fL LAB HEMATOLOGY METHOD 05/30/2024 5:38 AM EDT [facility] nRBC 0.0 <=0.0 per 100 WBCs LAB HEMATOLOGY METHOD 05/30/2024 5:38 AM EDT [facility] Differential Type Automated LAB HEMATOLOGY METHOD 05/30/2024 5:38 AM EDT [facility] Neutrophils % 75 % LAB HEMATOLOGY METHOD 05/30/2024 5:38 AM EDT [facility] Lymphocytes % 9 % LAB HEMATOLOGY METHOD 05/30/2024 5:38 AM EDT [facility] Monocytes % 8 % LAB HEMATOLOGY METHOD 05/30/2024 5:38 AM EDT [facility] Eosinophils % 1 % LAB HEMATOLOGY METHOD 05/30/2024 5:38 AM EDT [facility] Basophils % 1 % LAB HEMATOLOGY METHOD 05/30/2024 5:38 AM EDT [facility] Immature Granulocytes % 6 % LAB HEMATOLOGY METHOD 05/30/2024 5:38 AM EDT [facility] Neutrophils Absolute 17.83(H) 1.60 - 6.10 10*3/uL LAB HEMATOLOGY METHOD 05/30/2024 5:38 AM EDT [facility] Lymphocytes Absolute 1.98 1.20 - 3.90 10*3/uL LAB HEMATOLOGY METHOD 05/30/2024 5:38 AM EDT [facility] Monocytes Absolute 1.73(H) 0.30 - 0.90 10*3/uL LAB HEMATOLOGY METHOD 05/30/2024 5:38 AM EDT [facility] Eosinophils Absolute 0.18 0.00 - 0.50 10*3/uL LAB HEMATOLOGY METHOD 05/30/2024 5:38 AM EDT [facility] Basophils Absolute 0.11(H) 0.00 - 0.10 10*3/uL LAB HEMATOLOGY METHOD 05/30/2024 5:38 AM EDT [facility] Immature Granulocytes Absolute 1.38(H) 0.00 - 0.06 10*3/uL LAB HEMATOLOGY METHOD 05/30/2024 5:38 AM EDT [facility] Blood Venous blood specimen / Unknown Venipuncture / Unknown 05/30/2024 5:13 AM EDT 05/30/2024 5:28 AM EDT Narrative [facility] - 05/30/2024 5:38 AM EDT Therapeutic decision making should be based on absolute values, rather than percentages. us Maite Austin MD LAB BLOOD ORDERABLES Final Resu lt [facility] [address] [place] [address] * XR Chest 1 View (05/30/2024 3:11 [...] - 4.5 mg/dL 05/29/2024 7:43 AM EDT [facility] Blood Venous blood specimen / Unknown Venipuncture / Unknown 05/29/2024 7:00 AM EDT 05/29/2024 7:06 AM EDT Maite Austin MD LAB BLOOD ORDERABLES Final Resu lt [facility] [address] [place] [address] * (ABNORMAL) Basic metabolic panel (05/29/2024 7:00 AM EDT) Glucose, Plasma 104(H) 74 - 99 mg/dL 05/29/2024 7:43 AM EDT [facility] BUN, Plasma 13 7 - 21 mg/dL 05/29/2024 7:43 AM EDT [facility] Creatinine, Plasma 0.58(L) 0.60 - 1.10 mg/dL 05/29/2024 7:43 AM EDT [facility] BUN/Creatinine Ratio 22 05/29/2024 7:43 AM EDT [facility] Sodium, Plasma 132(L) 136 - 145 mmol/L 05/29/2024 7:43 AM EDT [facility] Potassium, Plasma 4.0 3.6 - 4.9 mmol/L 05/29/2024 7:43 AM EDT [facility] Chloride, Plasma 97 97 - 107 mmol/L 05/29/2024 7:43 AM EDT [facility] CO2, Plasma 25 22 - 29 mmol/L 05/29/2024 7:43 AM EDT [facility] Anion Gap 10 6 - 16 mmol/L 05/29/2024 7:43 AM EDT [facility] Total Calcium, Plasma 8.3(L) 8.9 - 10.2 mg/dL 05/29/2024 7:43 AM EDT [facility] eGFRcr 107.7 mL/min/1.7 3m*2 05/29/2024 7:43 AM EDT [facility] Comment:Reported eGFRcr in m L/min/1.73m2 is based the CKD-EPI 2020 equation that does not use a race coefficient. Blood Venous blood specimen / Unknown Venipuncture / Unknown 05/29/2024 7:00 AM EDT 05/29/2024 7:06 AM EDT us Maite Austin MD LAB BLOOD ORDERABLES Final Resu lt [facility] [address] [place] [address] * (ABNORMAL) POCT glucose meter (05/29/2024 6:51 AM EDT) [facility] POCT Glucose 118(H) 74 - 99 mg/dL [...] Comment 05/29/2024 6:52 AM EDT [facility] 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 Cydney Trevizo 05/29/2024 6:52 AM EDT [facility] Device ID [id number] 05/29/2024 6:52 AM EDT [facility] Specimen Type POC Capillary 05/29/2024 6:52 AM EDT [facility] Blood Capillary blood specimen / Unknown 05/29/2024 6:51 AM EDT 05/29/2024 6:52 AM EDT us Maite Austin MD LAB POINT OF CARE TE ST DOCKED DEVICE UNSOLICITED RESULTS Final Result [facility] [address] [place] [address] * Morphology (05/29/2024 5:35 AM EDT) [facility] Polychromasia Slight LAB HEMATOLOGY METHOD 05/29/2024 8:34 AM EDT [facility] RBC Morphology Slide Reviewed LAB HEMATOLOGY METHOD 05/29/2024 8:34 AM EDT [facility] Platelet Estimate Platelet smear estimate consistent with automated count LAB HEMATOLOGY METHOD 05/29/2024 8:34 AM EDT [facility] Blood Blood sample taken from central line / Unknown Venipuncture / Unknown 05/29/2024 5:35 AM EDT 05/29/2024 5:56 AM EDT us Maite Austin MD LAB BLOOD ORDERABLES Final Resu lt [facility] [address] [place] [address] * (ABNORMAL) Manual Differential (05/29/2024 5:35 AM EDT) Blasts % 0 % LAB HEMATOLOGY METHOD 05/29/2024 8:34 AM EDT [facility] Promyelocytes % 0 % LAB HEMATOLOGY METHOD 05/29/2024 8:34 AM EDT [facility] Myelocytes % 4 % LAB HEMATOLOGY METHOD 05/29/2024 8:34 AM EDT [facility] Metamyelocytes % 5 % LAB HEMATOLOGY METHOD 05/29/2024 8:34 AM EDT [facility] Neutrophils % 82 % LAB HEMATOLOGY METHOD 05/29/2024 8:34 AM EDT [facility] Lymphocytes % 3 % LAB HEMATOLOGY METHOD 05/29/2024 8:34 AM EDT [facility] Reactive Lymphocytes % 1 % LAB HEMATOLOGY METHOD 05/29/2024 8:34 AM EDT [facility] Monocytes % 3 % LAB HEMATOLOGY METHOD 05/29/2024 8:34 AM EDT [facility] Eosinophils % 2 % LAB HEMATOLOGY METHOD 05/29/2024 8:34 AM EDT [facility] Basophils % 0 % LAB HEMATOLOGY METHOD 05/29/2024 8:34 AM EDT [facility] Blasts Absolute 0.00 10*3/UL LAB HEMATOLOGY METHOD 05/29/2024 8:34 AM EDT [facility] Promyelocytes Absolute 0.00 10*3/uL LAB HEMATOLOGY METHOD 05/29/2024 8:34 AM EDT [facility] Myelocytes Absolute 0.90 10*3/uL LAB HEMATOLOGY METHOD 05/29/2024 8:34 AM EDT [facility] Metamyelocytes Absolute 1.13 10*3/uL LAB HEMATOLOGY METHOD 05/29/2024 8:34 AM EDT [facility] Neutrophils Absolute 18.47(H) 1.60 - 6.10 10*3/uL LAB HEMATOLOGY METHOD 05/29/2024 8:34 AM EDT [facility] Lymphocytes Absolute 0.68(L) 1.20 - 3.90 10*3/uL LAB HEMATOLOGY METHOD 05/29/2024 8:34 AM EDT [facility] Reactive Lymphocytes Absolute 0.23 10*3/uL LAB HEMATOLOGY METHOD 05/29/2024 8:34 AM EDT [facility] Monocytes Absolute 0.68 0.30 - 0.90 10*3/uL LAB HEMATOLOGY METHOD 05/29/2024 8:34 AM EDT [facility] Eosinophils Absolute 0.45 0.00 - 0.50 10*3/uL LAB HEMATOLOGY METHOD 05/29/2024 8:34 AM EDT [facility] Basophils Absolute 0.00 0.00 - 0.10 10*3/uL LAB HEMATOLOGY METHOD 05/29/2024 8:34 AM EDT [facility] Blood Blood sample taken from central line / Unknown Venipuncture / Unknown 05/29/2024 5:35 AM EDT 05/29/2024 5:56 AM EDT us Maite Austin MD LAB BLOOD ORDERABLES Final Resu lt [facility] [address] [place] [address] * (ABNORMAL) Renal Function Panel, Plasma (05/29/2024 5:35 AM EDT) Glucose, Plasma 600(HH) 74 - 99 mg/dL 05/29/2024 6:46 AM EDT [facility] BUN, Plasma 12 7 - 21 mg/dL 05/29/2024 6:46 AM EDT [facility] Creatinine, Plasma 0.59(L) 0.60 - 1.10 mg/dL 05/29/2024 6:46 AM EDT [facility] BUN/Creatinine Ratio 20 05/29/2024 6:46 AM EDT [facility] Sodium, Plasma 128(L) 136 - 145 mmol/L 05/29/2024 6:46 AM EDT [facility] Potassium, Plasma 5.1(H) 3.6 - 4.9 mmol/L 05/29/2024 6:46 AM EDT [facility] Chloride, Plasma 95(L) 97 - 107 mmol/L 05/29/2024 6:46 AM EDT [facility] CO2, Plasma 22 22 - 29 mmol/L 05/29/2024 6:46 AM EDT [facility] Anion Gap 11 6 - 16 mmol/L 05/29/2024 6:46 AM EDT [facility] Total Calcium, Plasma 8.1(L) 8.9 - 10.2 mg/dL 05/29/2024 6:46 AM EDT [facility] Phosphorus, Plasma 5.6(H) 2.5 - 4.5 mg/dL 05/29/2024 6:46 AM EDT [facility] Albumin, Plasma 2.0(L) 3.5 - 5.2 g/dL 05/29/2024 6:46 AM EDT [facility] eGFRcr 107.3 mL/min/1.7 3m*2 05/29/2024 6:46 AM EDT [facility] Comment:Reported eGFRcr in m L/min/1.73m2 is based the CKD-EPI 2020 equation that does not use a race coefficient. Blood Blood sample taken from central line / Unknown Venipuncture / Unknown 05/29/2024 5:35 AM EDT 05/29/2024 5:53 AM EDT us Lora Llanes APRN LAB BLOOD ORDERABLES Final Result Performing Organization Address [facility]/ZIP Co de Phone Number [facility] [address] [place] [address] * Magnesium, Plasma (05/29/2024 5:35 AM EDT) Magnesium, Plasma 2.1 1.9 - 2.4 mg/dL 05/29/2024 6:46 AM EDT [facility] Blood Blood sample taken from central line / Unknown Venipuncture / Unknown 05/29/2024 5:35 AM EDT 05/29/2024 5:53 AM EDT us Maite Austin MD LAB BLOOD ORDERABLES Final Resu lt Performing Organization Address City/[facility]/ZIP Co de Phone Number [facility] [address] [place] [address] * (ABNORMAL) CBC and Differential (05/29/2024 5:35 AM EDT) [facility] WBC Count 22.52(H) 3.70 - 10.30 10*3/uL LAB HEMATOLOGY METHOD 05/29/2024 8:34 AM EDT [facility] RBC Count 3.08(L) 3.90 - 5.20 10*6/uL LAB HEMATOLOGY METHOD 05/29/2024 8:34 AM EDT [facility] HGB 9.3(L) 11.2 - 15.7 g/dL LAB HEMATOLOGY METHOD 05/29/2024 8:34 AM EDT [facility] HCT 28.9(L) 34.0 - 45.0 % LAB HEMATOLOGY METHOD 05/29/2024 8:34 AM EDT [facility] Platelet Count 528(H) 155 - 369 10*3/uL LAB HEMATOLOGY METHOD 05/29/2024 8:34 AM EDT [facility] MCV 94 79 - 98 fL LAB HEMATOLOGY METHOD 05/29/2024 8:34 AM EDT [facility] MCH 30.2 26.0 - 32.0 pg LAB HEMATOLOGY METHOD 05/29/2024 8:34 AM EDT [facility] MCHC 32.2 30.7 - 35.5 g/dL LAB HEMATOLOGY METHOD 05/29/2024 8:34 AM EDT [facility] RDW 16.3(H) 11.5 - 14.5 % LAB HEMATOLOGY METHOD 05/29/2024 8:34 AM EDT [facility] MPV 10.0 8.8 - 12.5 fL LAB HEMATOLOGY METHOD 05/29/2024 8:34 AM EDT [facility] nRBC 0.0 <=0.0 per 100 WBCs LAB HEMATOLOGY METHOD 05/29/2024 8:34 AM EDT [facility] Differential Type Manual LAB HEMATOLOGY METHOD 05/29/2024 8:34 AM EDT [facility] Blood Blood sample taken from central line / Unknown Venipuncture / Unknown 05/29/2024 5:35 AM EDT 05/29/2024 5:56 AM EDT [facility] - 05/29/2024 8:34 AM EDT Therapeutic [...] MD LAB BLOOD ORDERABLES Final Resu lt [facility] [address] [place] [address] * XR Chest 1 View (05/29/2024 2:20 [...] MD IMG XR PROCEDURES Final Result * LA NEGATIVE PRESSURE WOUND THERAPY DME >50 SQ [...] IN CLINIC/BEDSIDE ORDERABLES Fi nal Result * [facility], ADDL 30 MIN (05/28/2024 11:39 [...] line in place with similar position compared topgreenviller study. Stable cardiac mediastinal silhouette. No new [...] Mary Phelps MD on 05/28/2024 9:03 AM us Maite Austin MD IMG XR PROCEDURES Final Result * Morphology (05/28/2024 12:47 AM EDT) Polychromasia Slight LAB HEMATOLOGY METHOD 05/28/2024 1:53 AM EDT [facility] Echinocytes Present LAB HEMATOLOGY METHOD 05/28/2024 1:53 AM EDT [facility] Elliptocytes/Ova locytes Present LAB HEMATOLOGY METHOD 05/28/2024 1:53 AM EDT [facility] RBC Morphology Slide Reviewed LAB HEMATOLOGY METHOD 05/28/2024 1:53 AM EDT [facility] Platelet Estimate Platelet smear estimate consistent with automated count LAB HEMATOLOGY METHOD 05/28/2024 1:53 AM EDT [facility] Clumped Platelets Present LAB HEMATOLOGY METHOD 05/28/2024 1:53 AM EDT [facility] Blood Venous blood specimen / Unknown Venipuncture / Unknown 05/28/2024 12:47 AM EDT 05/28/2024 12:58 AM EDT us Maite Austin MD LAB BLOOD ORDERABLES Final Resu lt [facility] [address] [place] [address] * (ABNORMAL) Manual Differential (05/28/2024 12:47 AM EDT) Blasts % 0 % LAB HEMATOLOGY METHOD 05/28/2024 1:53 AM EDT [facility] Promyelocytes % 0 % LAB HEMATOLOGY METHOD 05/28/2024 1:53 AM EDT [facility] Myelocytes % 3 % LAB HEMATOLOGY METHOD 05/28/2024 1:53 AM EDT [facility] Metamyelocytes % 6 % LAB HEMATOLOGY METHOD 05/28/2024 1:53 AM EDT [facility] Neutrophils % 75 % LAB HEMATOLOGY METHOD 05/28/2024 1:53 AM EDT [facility] Lymphocytes % 8 % LAB HEMATOLOGY METHOD 05/28/2024 1:53 AM EDT [facility] Reactive Lymphocytes % 0 % LAB HEMATOLOGY METHOD 05/28/2024 1:53 AM EDT [facility] Monocytes % 4 % LAB HEMATOLOGY METHOD 05/28/2024 1:53 AM EDT [facility] Eosinophils % 2 % LAB HEMATOLOGY METHOD 05/28/2024 1:53 AM EDT [facility] Basophils % 2 % LAB HEMATOLOGY METHOD 05/28/2024 1:53 AM EDT [facility] Blasts Absolute 0.00 10*3/UL LAB HEMATOLOGY METHOD 05/28/2024 1:53 AM EDT [facility] Promyelocytes Absolute 0.00 10*3/uL LAB HEMATOLOGY METHOD 05/28/2024 1:53 AM EDT [facility] Myelocytes Absolute 0.75 10*3/uL LAB HEMATOLOGY METHOD 05/28/2024 1:53 AM EDT [facility] Metamyelocytes Absolute 1.50 10*3/uL LAB HEMATOLOGY METHOD 05/28/2024 1:53 AM EDT [facility] Neutrophils Absolute 18.75(H) 1.60 - 6.10 10*3/uL LAB HEMATOLOGY METHOD 05/28/2024 1:53 AM EDT [facility] Lymphocytes Absolute 2.00 1.20 - 3.90 10*3/uL LAB HEMATOLOGY METHOD 05/28/2024 1:53 AM EDT [facility] Reactive Lymphocytes Absolute 0.00 10*3/uL LAB HEMATOLOGY METHOD 05/28/2024 1:53 AM EDT [facility] Monocytes Absolute 1.00(H) 0.30 - 0.90 10*3/uL LAB HEMATOLOGY METHOD 05/28/2024 1:53 AM EDT [facility] Eosinophils Absolute 0.50 0.00 - 0.50 10*3/uL LAB HEMATOLOGY METHOD 05/28/2024 1:53 AM EDT [facility] Basophils Absolute 0.50(H) 0.00 - 0.10 10*3/uL LAB HEMATOLOGY METHOD 05/28/2024 1:53 AM EDT [facility] Blood Venous blood specimen / Unknown Venipuncture / Unknown 05/28/2024 12:47 AM EDT 05/28/2024 12:58 AM EDT us Maite Austin MD LAB BLOOD ORDERABLES Final Resu lt [facility] [address] [place] [address] * (ABNORMAL) Renal Function Panel, Plasma (05/28/2024 12:47 AM EDT) Glucose, Plasma 106(H) 74 - 99 mg/dL 05/28/2024 1:27 AM EDT [facility] BUN, Plasma 15 7 - 21 mg/dL 05/28/2024 1:27 AM EDT [facility] Creatinine, Plasma 0.66 0.60 - 1.10 mg/dL 05/28/2024 1:27 AM EDT [facility] BUN/Creatinine Ratio 23 05/28/2024 1:27 AM EDT [facility] Sodium, Plasma 137 136 - 145 mmol/L 05/28/2024 1:27 AM EDT [facility] Potassium, Plasma 4.3 3.6 - 4.9 mmol/L 05/28/2024 1:27 AM EDT [facility] Chloride, Plasma 102 97 - 107 mmol/L 05/28/2024 1:27 AM EDT [facility] CO2, Plasma 26 22 - 29 mmol/L 05/28/2024 1:27 AM EDT [facility] Anion Gap 9 6 - 16 mmol/L 05/28/2024 1:27 AM EDT [facility] Total Calcium, Plasma 8.2(L) 8.9 - 10.2 mg/dL 05/28/2024 1:27 AM EDT [facility] Phosphorus, Plasma 3.8 2.5 - 4.5 mg/dL 05/28/2024 1:27 AM EDT [facility] Albumin, Plasma 2.1(L) 3.5 - 5.2 g/dL 05/28/2024 1:27 AM EDT [facility] eGFRcr 104.4 mL/min/1.7 3m*2 05/28/2024 1:27 AM EDT [facility] Comment:Reported eGFRcr in m L/min/1.73m2 is based the CKD-EPI 2020 equation that does not use a race coefficient. Blood Venous blood specimen / Unknown Venipuncture / Unknown 05/28/2024 12:47 AM EDT 05/28/2024 12:56 AM EDT us Lora Llanes APRN LAB BLOOD ORDERABLES Final Result Performing Organization Address [facility] Co de Phone Number [facility] [address] [place] [address] * Magnesium, Plasma (05/28/2024 12:47 AM EDT) Magnesium, Plasma 1.9 1.9 - 2.4 mg/dL 05/28/2024 1:27 AM EDT [facility] Blood Venous blood specimen / Unknown Venipuncture / Unknown 05/28/2024 12:47 AM EDT 05/28/2024 12:56 AM EDT us Maite Austin MD LAB BLOOD ORDERABLES Final Resu lt Performing Organization Address [facility] de Phone Number [facility] [address] [place] [address] * (ABNORMAL) CBC and Differential (05/28/2024 12:47 AM EDT) WBC Count 25.00(H) 3.70 - 10.30 10*3/uL LAB HEMATOLOGY METHOD 05/28/2024 1:53 AM EDT [facility] RBC Count 3.23(L) 3.90 - 5.20 10*6/uL LAB HEMATOLOGY METHOD 05/28/2024 1:53 AM EDT [facility] HGB 9.7(L) 11.2 - 15.7 g/dL LAB HEMATOLOGY METHOD 05/28/2024 1:53 AM EDT [facility] HCT 30.1(L) 34.0 - 45.0 % LAB HEMATOLOGY METHOD 05/28/2024 1:53 AM EDT [facility] Platelet Count 442(H) 155 - 369 10*3/uL LAB HEMATOLOGY METHOD 05/28/2024 1:53 AM EDT [facility] MCV 93 79 - 98 fL LAB HEMATOLOGY METHOD 05/28/2024 1:53 AM EDT [facility] MCH 30.0 26.0 - 32.0 pg LAB HEMATOLOGY METHOD 05/28/2024 1:53 AM EDT [facility] MCHC 32.2 30.7 - 35.5 g/dL LAB HEMATOLOGY METHOD 05/28/2024 1:53 AM EDT [facility] RDW 16.1(H) 11.5 - 14.5 % LAB HEMATOLOGY METHOD 05/28/2024 1:53 AM EDT [facility] MPV 10.1 8.8 - 12.5 fL LAB HEMATOLOGY METHOD 05/28/2024 1:53 AM EDT [facility] nRBC 0.0 <=0.0 per 100 WBCs LAB HEMATOLOGY METHOD 05/28/2024 1:53 AM EDT [facility] Differential Type Manual LAB HEMATOLOGY METHOD 05/28/2024 1:53 AM EDT [facility] Blood Venous blood specimen / Unknown Venipuncture / Unknown 05/28/2024 12:47 AM EDT 05/28/2024 12:58 AM EDT Narrative [facility] - 05/28/2024 1:53 AM EDT Therapeutic [...] MD LAB BLOOD ORDERABLES Final Resu lt [facility] [address] [place] [address] * XR Abdomen 1 View (05/27/2024 9:45 [...] Lorri Lopez MD on 05/27/2024 9:59 PM us Maite Austin MD IMG XR PROCEDURES Final Result * (ABNORMAL) POCT glucose meter (05/27/2024 6:52 PM EDT) POCT Glucose 120(H) 74 - 99 mg/dL 05/27/2024 6:54 PM EDT [facility] Comment:Accuracy of a glucos e result [...] Comment 05/27/2024 6:54 PM EDT [facility] 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 Sp Singer 05/27/2024 6:54 PM EDT [facility] Device ID [id number] 05/27/2024 6:54 PM EDT [facility] Specimen Type POC Capillary 05/27/2024 6:54 PM EDT [facility] Blood Capillary blood specimen / Unknown 05/27/2024 6:52 PM EDT 05/27/2024 6:54 PM EDT us Maite Austin MD LAB POINT OF CARE TE ST DOCKED DEVICE UNSOLICITED RESULTS Final Result Performing Organization Address City/State/[facility] Co de Phone Number [facility] [address] [place] [address] * [facility], E/M 30-74 MINUTES (05/27/2024 11:12 [...] LAB HEMATOLOGY METHOD 05/27/2024 6:30 AM EDT [facility] Elliptocytes/Ova locytes Present LAB HEMATOLOGY METHOD 05/27/2024 6:30 AM EDT [facility] RBC Morphology Slide Reviewed LAB HEMATOLOGY METHOD 05/27/2024 6:30 AM EDT [facility] Platelet Estimate Platelet smear estimate consistent with automated count LAB HEMATOLOGY METHOD 05/27/2024 6:30 AM EDT [facility] Clumped Platelets Present LAB HEMATOLOGY METHOD 05/27/2024 6:30 AM EDT [facility] Blood Venous blood specimen / Unknown Venipuncture / Unknown 05/27/2024 4:54 AM EDT 05/27/2024 5:03 AM EDT us Maite Austin MD LAB BLOOD ORDERABLES Final Resu lt [facility] [address] [place] [address] * (ABNORMAL) Manual Differential (05/27/2024 4:54 AM EDT) Pathologist [facility] Blasts % 0 % LAB HEMATOLOGY METHOD 05/27/2024 6:30 AM EDT [facility] Promyelocytes % 0 % LAB HEMATOLOGY METHOD 05/27/2024 6:30 AM EDT [facility] Myelocytes % 3 % LAB HEMATOLOGY METHOD 05/27/2024 6:30 AM EDT [facility] Metamyelocytes % 4 % LAB HEMATOLOGY METHOD 05/27/2024 6:30 AM EDT [facility] Neutrophils % 80 % LAB HEMATOLOGY METHOD 05/27/2024 6:30 AM EDT [facility] Lymphocytes % 4 % LAB HEMATOLOGY METHOD 05/27/2024 6:30 AM EDT [facility] Reactive Lymphocytes % 0 % LAB HEMATOLOGY METHOD 05/27/2024 6:30 AM EDT [facility] Monocytes % 6 % LAB HEMATOLOGY METHOD 05/27/2024 6:30 AM EDT [facility] Eosinophils % 3 % LAB HEMATOLOGY METHOD 05/27/2024 6:30 AM EDT [facility] Basophils % 0 % LAB HEMATOLOGY METHOD 05/27/2024 6:30 AM EDT [facility] [facility] Blasts Absolute 0.00 10*3/UL LAB HEMATOLOGY METHOD 05/27/2024 6:30 AM EDT [facility] Promyelocytes Absolute 0.00 10*3/uL LAB HEMATOLOGY METHOD 05/27/2024 6:30 AM EDT [facility] Myelocytes Absolute 0.92 10*3/uL LAB HEMATOLOGY METHOD 05/27/2024 6:30 AM EDT [facility] Metamyelocytes Absolute 1.23 10*3/uL LAB HEMATOLOGY METHOD 05/27/2024 6:30 AM EDT [facility] Neutrophils Absolute 24.62(H) 1.60 - 6.10 10*3/uL LAB HEMATOLOGY METHOD 05/27/2024 6:30 AM EDT [facility] Lymphocytes Absolute 1.23 1.20 - 3.90 10*3/uL LAB HEMATOLOGY METHOD 05/27/2024 6:30 AM EDT [facility] Reactive Lymphocytes Absolute 0.00 10*3/uL LAB HEMATOLOGY METHOD 05/27/2024 6:30 AM EDT [facility] Monocytes Absolute 1.85(H) 0.30 - 0.90 10*3/uL LAB HEMATOLOGY METHOD 05/27/2024 6:30 AM EDT [facility] Eosinophils Absolute 0.92(H) 0.00 - 0.50 10*3/uL LAB HEMATOLOGY METHOD 05/27/2024 6:30 AM EDT [facility] Basophils Absolute 0.00 0.00 - 0.10 10*3/uL LAB HEMATOLOGY METHOD 05/27/2024 6:30 AM EDT [facility] Blood Venous blood specimen / Unknown Venipuncture / Unknown 05/27/2024 4:54 AM EDT 05/27/2024 5:03 AM EDT us Maite Austin MD LAB BLOOD ORDERABLES Final Resu lt [facility] [address] [place] [address] * (ABNORMAL) Renal Function Panel, Plasma (05/27/2024 4:54 AM EDT) Glucose, Plasma 127(H) 74 - 99 mg/dL 05/27/2024 5:34 AM EDT [facility] BUN, Plasma 16 7 - 21 mg/dL 05/27/2024 5:34 AM EDT [facility] Creatinine, Plasma 0.71 0.60 - 1.10 mg/dL 05/27/2024 5:34 AM EDT [facility] BUN/Creatinine Ratio 23 05/27/2024 5:34 AM EDT [facility] Sodium, Plasma 134(L) 136 - 145 mmol/L 05/27/2024 5:34 AM EDT [facility] Potassium, Plasma 4.1 3.6 - 4.9 mmol/L 05/27/2024 5:34 AM EDT [facility] Chloride, Plasma 99 97 - 107 mmol/L 05/27/2024 5:34 AM EDT [facility] CO2, Plasma 26 22 - 29 mmol/L 05/27/2024 5:34 AM EDT [facility] Anion Gap 9 6 - 16 mmol/L 05/27/2024 5:34 AM EDT [facility] Total Calcium, Plasma 8.4(L) 8.9 - 10.2 mg/dL 05/27/2024 5:34 AM EDT [facility] Phosphorus, Plasma 4.7(H) 2.5 - 4.5 mg/dL 05/27/2024 5:34 AM EDT [facility] Albumin, Plasma 2.1(L) 3.5 - 5.2 g/dL 05/27/2024 5:34 AM EDT [facility] eGFRcr 101.2 mL/min/1.7 3m*2 05/27/2024 5:34 AM EDT [facility] Comment:Reported eGFRcr in m L/min/1.73m2 is based the CKD-EPI 2020 equation that does not use a race coefficient. Blood Venous blood specimen / Unknown Venipuncture / Unknown 05/27/2024 4:54 AM EDT 05/27/2024 5:02 AM EDT Lora Llanes APRN LAB BLOOD ORDERABLES Final Result [facility] [address] [place] [address] * Magnesium, Plasma (05/27/2024 4:54 AM EDT) Pathologist [facility] Magnesium, Plasma 2.1 1.9 - 2.4 mg/dL 05/27/2024 5:34 AM EDT [facility] Blood Venous blood specimen / Unknown Venipuncture / Unknown 05/27/2024 4:54 AM EDT 05/27/2024 5:02 AM EDT us Maite Austin MD LAB BLOOD ORDERABLES Final Resu lt Performing Organization Address City/[facility]/ZIP Co de Phone Number [facility] [address] [place] [address] * (ABNORMAL) CBC and Differential (05/27/2024 4:54 AM EDT) Pathologist [facility] WBC Count 30.77(H) 3.70 - 10.30 10*3/uL LAB HEMATOLOGY METHOD 05/27/2024 6:30 AM EDT [facility] RBC Count 3.22(L) 3.90 - 5.20 10*6/uL LAB HEMATOLOGY METHOD 05/27/2024 6:30 AM EDT [facility] HGB 9.5(L) 11.2 - 15.7 g/dL LAB HEMATOLOGY METHOD 05/27/2024 6:30 AM EDT [facility] HCT 29.8(L) 34.0 - 45.0 % LAB HEMATOLOGY METHOD 05/27/2024 6:30 AM EDT [facility] Platelet Count 413(H) 155 - 369 10*3/uL LAB HEMATOLOGY METHOD 05/27/2024 6:30 AM EDT [facility] MCV 93 79 - 98 fL LAB HEMATOLOGY METHOD 05/27/2024 6:30 AM EDT [facility] MCH 29.5 26.0 - 32.0 pg LAB HEMATOLOGY METHOD 05/27/2024 6:30 AM EDT [facility] MCHC 31.9 30.7 - 35.5 g/dL LAB HEMATOLOGY METHOD 05/27/2024 6:30 AM EDT [facility] RDW 15.9(H) 11.5 - 14.5 % LAB HEMATOLOGY METHOD 05/27/2024 6:30 AM EDT [facility] MPV 10.2 8.8 - 12.5 fL LAB HEMATOLOGY METHOD 05/27/2024 6:30 AM EDT [facility] nRBC 0.3(H) <=0.0 per 100 WBCs LAB HEMATOLOGY METHOD 05/27/2024 6:30 AM EDT [facility] Differential Type Manual LAB HEMATOLOGY METHOD 05/27/2024 6:30 AM EDT [facility] Blood Venous blood specimen / Unknown Venipuncture / Unknown 05/27/2024 4:54 AM EDT 05/27/2024 5:03 AM EDT Narrative [facility] - 05/27/2024 6:30 AM EDT Therapeutic [...] MD LAB BLOOD ORDERABLES Final Resu lt [facility] [address] [place] [address] * XR Chest 1 View (05/27/2024 2:37 [...] POCT glucose meter (05/26/2024 6:18 PM EDT) [facility] POCT Glucose 124(H) 74 - 99 mg/dL 05/26/2024 6:19 PM EDT [facility] Comment:Accuracy of a glucos e result [...] for testing. Comment 05/26/2024 6:19 PM EDT [facility] 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 Reyna Le 05/26/2024 6:19 PM EDT [facility] Device ID [id number] 05/26/2024 6:19 PM EDT [facility] Specimen Type POC Capillary 05/26/2024 6:19 PM EDT [facility] Blood Capillary blood specimen / Unknown 05/26/2024 6:18 PM EDT 05/26/2024 6:19 PM EDT us Maite Austin MD LAB POINT OF CARE TE ST DOCKED DEVICE UNSOLICITED RESULTS Final Result Performing Organization Address City/State/[facility] Co de Phone Number [facility] [address] [place] [address] * XR Chest 1 View (05/26/2024 4:30 [...] MD IMG XR PROCEDURES Final Result * [facility], ADDL 30 MIN (05/26/2024 3:17 [...] TEST ORDERABLES Final Result [facility] BANK [address] [place] [address], * Prepare Leukocyte Reduced RBC: 1 Units (05/26/2024 2:21 PM EDT) [facility] Product Code [id number] CH BLOO D BANK Dispense Status Transfused BLOOD BANK Blood Expiration Date [id number] BLOOD BANK Unit Number [id number] CH B LOOD BANK Product Blood Type 7300 CH BLOOD BANK Blood Type B+ BLOOD BANK Crossmatch Compatible CH BLOOD BANK Other Maite Austin MD BLOOD BANK PRODUCT ORDERABLES F inal Result Performing Organization Address [facility] Co de Phone Number BLOOD BANK [address] * (ABNORMAL) POCT glucose meter (05/26/2024 12:19 PM EDT) [facility] POCT Glucose 129(H) 74 - 99 mg/dL [...] 05/26/2024 12:21 PM EDT [facility] J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 Reyna Le 05/26/2024 12:21 PM EDT [facility] Device ID [id number] 05/26/2024 12:21 PM EDT [facility] Specimen Type POC Capillary 05/26/2024 12:21 PM EDT [facility] Blood Capillary blood specimen / Unknown 05/26/2024 12:19 PM EDT 05/26/2024 12:21 PM EDT Maite Austin MD LAB POINT OF CARE TE ST DOCKED DEVICE UNSOLICITED RESULTS Final Result Performing Organization Address City/[facility]/ZIP Co de Phone Number [facility] [address] [place] [address] * Morphology (05/26/2024 3:27 AM EDT) [facility] Polychromasia Slight LAB HEMATOLOGY METHOD 05/26/2024 4:24 AM EDT [facility] Elliptocytes/Ova locytes Present LAB HEMATOLOGY METHOD 05/26/2024 4:24 AM EDT [facility] RBC Morphology Slide Reviewed LAB HEMATOLOGY METHOD 05/26/2024 4:24 AM EDT [facility] Target Cells Present LAB HEMATOLOGY METHOD 05/26/2024 4:24 AM EDT [facility] Platelet Estimate Platelet smear estimate consistent with automated count LAB HEMATOLOGY METHOD 05/26/2024 4:24 AM EDT [facility] Clumped Platelets Present LAB HEMATOLOGY METHOD 05/26/2024 4:24 AM EDT [facility] Blood Venous blood specimen / Unknown Venipuncture / Unknown 05/26/2024 3:27 AM EDT 05/26/2024 3:38 AM EDT us Maite Austin MD LAB BLOOD ORDERABLES Final Resu lt [facility] [address] [place] [address] * (ABNORMAL) Manual Differential (05/26/2024 3:27 AM EDT) Blasts % 0 % LAB HEMATOLOGY METHOD 05/26/2024 4:24 AM EDT [facility] Promyelocytes % 0 % LAB HEMATOLOGY METHOD 05/26/2024 4:24 AM EDT [facility] Myelocytes % 0 % LAB HEMATOLOGY METHOD 05/26/2024 4:24 AM EDT [facility] Metamyelocytes % 0 % LAB HEMATOLOGY METHOD 05/26/2024 4:24 AM EDT [facility] Neutrophils % 81 % LAB HEMATOLOGY METHOD 05/26/2024 4:24 AM EDT [facility] Lymphocytes % 9 % LAB HEMATOLOGY METHOD 05/26/2024 4:24 AM EDT [facility] Reactive Lymphocytes % 0 % LAB HEMATOLOGY METHOD 05/26/2024 4:24 AM EDT [facility] Monocytes % 10 % LAB HEMATOLOGY METHOD 05/26/2024 4:24 AM EDT [facility] Eosinophils % 0 % LAB HEMATOLOGY METHOD 05/26/2024 4:24 AM EDT [facility] Basophils % 0 % LAB HEMATOLOGY METHOD 05/26/2024 4:24 AM EDT [facility] Blasts Absolute 0.00 10*3/UL LAB HEMATOLOGY METHOD 05/26/2024 4:24 AM EDT [facility] Promyelocytes Absolute 0.00 10*3/uL LAB HEMATOLOGY METHOD 05/26/2024 4:24 AM EDT [facility] Myelocytes Absolute 0.00 10*3/uL LAB HEMATOLOGY METHOD 05/26/2024 4:24 AM EDT [facility] Metamyelocytes Absolute 0.00 10*3/uL LAB HEMATOLOGY METHOD 05/26/2024 4:24 AM EDT [facility] Neutrophils Absolute 28.12(H) 1.60 - 6.10 10*3/uL LAB HEMATOLOGY METHOD 05/26/2024 4:24 AM EDT [facility] Lymphocytes Absolute 3.12 1.20 - 3.90 10*3/uL LAB HEMATOLOGY METHOD 05/26/2024 4:24 AM EDT [facility] Reactive Lymphocytes Absolute 0.00 10*3/uL LAB HEMATOLOGY METHOD 05/26/2024 4:24 AM EDT [facility] Monocytes Absolute 3.47(H) 0.30 - 0.90 10*3/uL LAB HEMATOLOGY METHOD 05/26/2024 4:24 AM EDT [facility] Eosinophils Absolute 0.00 0.00 - 0.50 10*3/uL LAB HEMATOLOGY METHOD 05/26/2024 4:24 AM EDT [facility] Basophils Absolute 0.00 0.00 - 0.10 10*3/uL LAB HEMATOLOGY METHOD 05/26/2024 4:24 AM EDT [facility] Blood Venous blood specimen / Unknown Venipuncture / Unknown 05/26/2024 3:27 AM EDT 05/26/2024 3:38 AM EDT us Maite Austin MD LAB BLOOD ORDERABLES Final Resu lt [facility] [address] [place] [address] * (ABNORMAL) Renal Function Panel, Plasma (05/26/2024 3:27 AM EDT) Glucose, Plasma 122(H) 74 - 99 mg/dL 05/26/2024 4:12 AM EDT [facility] BUN, Plasma 17 7 - 21 mg/dL 05/26/2024 4:12 AM EDT [facility] Creatinine, Plasma 0.73 0.60 - 1.10 mg/dL 05/26/2024 4:12 AM EDT [facility] BUN/Creatinine Ratio 23 05/26/2024 4:12 AM EDT [facility] Sodium, Plasma 136 136 - 145 mmol/L 05/26/2024 4:12 AM EDT [facility] Potassium, Plasma 4.5 3.6 - 4.9 mmol/L 05/26/2024 4:12 AM EDT [facility] Chloride, Plasma 104 97 - 107 mmol/L 05/26/2024 4:12 AM EDT [facility] CO2, Plasma 24 22 - 29 mmol/L 05/26/2024 4:12 AM EDT [facility] Anion Gap 8 6 - 16 mmol/L 05/26/2024 4:12 AM EDT [facility] Total Calcium, Plasma 7.8(L) 8.9 - 10.2 mg/dL 05/26/2024 4:12 AM EDT [facility] Phosphorus, Plasma 4.0 2.5 - 4.5 mg/dL 05/26/2024 4:12 AM EDT [facility] Albumin, Plasma 2.0(L) 3.5 - 5.2 g/dL 05/26/2024 4:12 AM EDT [facility] eGFRcr 97.9 mL/min/1.7 3m*2 05/26/2024 4:12 AM EDT [facility] Comment:Reported eGFRcr in m L/min/1.73m2 is based the CKD-EPI 2020 equation that does not use a race coefficient. Blood Venous blood specimen / Unknown Venipuncture / Unknown 05/26/2024 3:27 AM EDT 05/26/2024 3:38 AM EDT Lora Llanes APRN LAB BLOOD ORDERABLES Final Result [facility] [address] [place] [address] * Magnesium, Plasma (05/26/2024 3:27 AM EDT) Pathologist [facility] Magnesium, Plasma 2.1 1.9 - 2.4 mg/dL 05/26/2024 4:12 AM EDT [facility] Blood Venous blood specimen / Unknown Venipuncture / Unknown 05/26/2024 3:27 AM EDT 05/26/2024 3:38 AM EDT us Maite Austin MD LAB BLOOD ORDERABLES Final Resu lt Performing Organization Address City/[facility]/ZIP Co de Phone Number [facility] [address] [place] [address] * (ABNORMAL) CBC and Differential (05/26/2024 3:27 AM EDT) [facility] WBC Count 34.71(H) 3.70 - 10.30 10*3/uL LAB HEMATOLOGY METHOD 05/26/2024 4:24 AM EDT [facility] RBC Count 2.35(L) 3.90 - 5.20 10*6/uL LAB HEMATOLOGY METHOD 05/26/2024 4:24 AM EDT [facility] HGB 7.1(L) 11.2 - 15.7 g/dL LAB HEMATOLOGY METHOD 05/26/2024 4:24 AM EDT [facility] HCT 22.4(L) 34.0 - 45.0 % LAB HEMATOLOGY METHOD 05/26/2024 4:24 AM EDT [facility] Platelet Count 378(H) 155 - 369 10*3/uL LAB HEMATOLOGY METHOD 05/26/2024 4:24 AM EDT [facility] MCV 95 79 - 98 fL LAB HEMATOLOGY METHOD 05/26/2024 4:24 AM EDT [facility] MCH 30.2 26.0 - 32.0 pg LAB HEMATOLOGY METHOD 05/26/2024 4:24 AM EDT [facility] MCHC 31.7 30.7 - 35.5 g/dL LAB HEMATOLOGY METHOD 05/26/2024 4:24 AM EDT [facility] RDW 16.7(H) 11.5 - 14.5 % LAB HEMATOLOGY METHOD 05/26/2024 4:24 AM EDT [facility] MPV 10.2 8.8 - 12.5 fL LAB HEMATOLOGY METHOD 05/26/2024 4:24 AM EDT [facility] nRBC 0.3(H) <=0.0 per 100 WBCs LAB HEMATOLOGY METHOD 05/26/2024 4:24 AM EDT [facility] Differential Type Manual LAB HEMATOLOGY METHOD 05/26/2024 4:24 AM EDT [facility] Blood Venous blood specimen / Unknown Venipuncture / Unknown 05/26/2024 3:27 AM EDT 05/26/2024 3:38 AM EDT Narrative [facility] - 05/26/2024 4:24 AM EDT Therapeutic [...] MD LAB BLOOD ORDERABLES Final Resu lt [facility] [address] [place] [address] * XR Chest 1 View (05/26/2024 2:09 [...] LAB HEMATOLOGY METHOD 05/25/2024 8:51 PM EDT [facility] HCT 23.1(L) 34.0 - 45.0 % LAB HEMATOLOGY METHOD 05/25/2024 8:51 PM EDT [facility] Blood Arterial blood specimen / Unknown Venipuncture / Unknown 05/25/2024 8:32 PM EDT 05/25/2024 8:45 PM EDT us Lora Llanes APRN LAB BLOOD ORDERABLES Final Result Performing Organization Address City/[facility]/ZIP Co de Phone Number [facility] [address] [place] [address] * (ABNORMAL) POCT glucose meter (05/25/2024 6:17 PM EDT) [facility] POCT Glucose 116(H) 74 - 99 mg/dL [...] Comment 05/25/2024 6:19 PM EDT [facility] 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 Sp Singer 05/25/2024 6:19 PM EDT [facility] Device ID [id number] 05/25/2024 6:19 PM EDT [facility] Specimen Type POC Arterial 05/25/2024 6:19 PM EDT [facility] Blood Arterial blood specimen / Unknown 05/25/2024 6:17 PM EDT 05/25/2024 6:19 PM EDT us Maite Austin MD LAB POINT OF CARE TE ST DOCKED DEVICE UNSOLICITED RESULTS Final Result Performing Organization Address City/[facility]/ZIP Co de Phone Number [facility] [address] [place] [address] * (ABNORMAL) Hemoglobin and hematocrit, blood (05/25/2024 1:55 PM EDT) [facility] HGB 7.4(L) 11.2 - 15.7 g/dL LAB HEMATOLOGY METHOD 05/25/2024 2:26 PM EDT [facility] HCT 23.6(L) 34.0 - 45.0 % LAB HEMATOLOGY METHOD 05/25/2024 2:26 PM EDT [facility] Blood Arterial blood specimen / Unknown Arterial Line / Unknown 05/25/2024 1:55 PM EDT 05/25/2024 2:19 PM EDT us Maite Austin MD LAB BLOOD ORDERABLES Final Resu lt [facility] [address] [place] [address] * (ABNORMAL) Hemogram (CBC) (05/25/2024 8:11 AM EDT) WBC Count 41.23(H) 3.70 - 10.30 10*3/uL LAB HEMATOLOGY METHOD 05/25/2024 8:28 AM EDT [facility] RBC Count 2.42(L) 3.90 - 5.20 10*6/uL LAB HEMATOLOGY METHOD 05/25/2024 8:28 AM EDT [facility] HGB 7.2(L) 11.2 - 15.7 g/dL LAB HEMATOLOGY METHOD 05/25/2024 8:28 AM EDT [facility] HCT 22.4(L) 34.0 - 45.0 % LAB HEMATOLOGY METHOD 05/25/2024 8:28 AM EDT [facility] Platelet Count 373(H) 155 - 369 10*3/uL LAB HEMATOLOGY METHOD 05/25/2024 8:28 AM EDT [facility] MCV 93 79 - 98 fL LAB HEMATOLOGY METHOD 05/25/2024 8:28 AM EDT [facility] MCH 29.8 26.0 - 32.0 pg LAB HEMATOLOGY METHOD 05/25/2024 8:28 AM EDT [facility] MCHC 32.1 30.7 - 35.5 g/dL LAB HEMATOLOGY METHOD 05/25/2024 8:28 AM EDT [facility] RDW 16.3(H) 11.5 - 14.5 % LAB HEMATOLOGY METHOD 05/25/2024 8:28 AM EDT [facility] MPV 10.3 8.8 - 12.5 fL LAB HEMATOLOGY METHOD 05/25/2024 8:28 AM EDT [facility] nRBC 0.5(H) <=0.0 per 100 WBCs LAB HEMATOLOGY METHOD 05/25/2024 8:28 AM EDT [facility] Blood Arterial blood specimen / Unknown Arterial Line / Unknown 05/25/2024 8:11 AM EDT 05/25/2024 8:19 AM EDT us Lora Llanes ADMISSIONS SUPERVISOR LAB BLOOD ORDERABLES Final Result [facility] [address] [place] [address] * (ABNORMAL) POCT glucose meter (05/25/2024 6:26 AM EDT) POCT Glucose 121(H) 74 - 99 mg/dL 05/25/2024 6:28 AM EDT [facility] Comment:Accuracy of [...] Comment 05/25/2024 6:28 AM EDT [facility] 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 Vivien Gilbert 05/25/2024 6:28 AM EDT [facility] Device ID [id number] 05/25/2024 6:28 AM EDT [facility] Specimen Type POC Arterial 05/25/2024 6:28 AM EDT [facility] Blood Arterial blood specimen / Unknown 05/25/2024 6:26 AM EDT 05/25/2024 6:28 AM EDT us Maite Austin MD LAB POINT OF CARE TE ST DOCKED DEVICE UNSOLICITED RESULTS Final Result [facility] [address] [place] [address] * XR Chest 1 View (05/25/2024 3:07 [...] Champ Oden MD on 05/25/2024 8:59 AM us Maite Austin MD IMG XR PROCEDURES Final Result * Morphology (05/25/2024 2:45 AM EDT) Polychromasia Moderate LAB HEMATOLOGY METHOD 05/25/2024 4:34 AM EDT [facility] Echinocytes Present LAB HEMATOLOGY METHOD 05/25/2024 4:34 AM EDT [facility] RBC Morphology Slide Reviewed LAB HEMATOLOGY METHOD 05/25/2024 4:34 AM EDT [facility] Platelet Estimate Platelet smear estimate consistent with automated count LAB HEMATOLOGY METHOD 05/25/2024 4:34 AM EDT [facility] Blood Venous blood specimen / Unknown Venipuncture / Unknown 05/25/2024 2:45 AM EDT 05/25/2024 2:52 AM EDT us Maite Austin MD LAB BLOOD ORDERABLES Final Resu lt [facility] [address] [place] [address] * (ABNORMAL) Manual Differential (05/25/2024 2:45 AM EDT) Blasts % 0 % LAB HEMATOLOGY METHOD 05/25/2024 4:34 AM EDT [facility] Promyelocytes % 0 % LAB HEMATOLOGY METHOD 05/25/2024 4:34 AM EDT [facility] Myelocytes % 1 % LAB HEMATOLOGY METHOD 05/25/2024 4:34 AM EDT [facility] Metamyelocytes % 5 % LAB HEMATOLOGY METHOD 05/25/2024 4:34 AM EDT [facility] Neutrophils % 80 % LAB HEMATOLOGY METHOD 05/25/2024 4:34 AM EDT [facility] Lymphocytes % 5 % LAB HEMATOLOGY METHOD 05/25/2024 4:34 AM EDT [facility] Reactive Lymphocytes % 0 % LAB HEMATOLOGY METHOD 05/25/2024 4:34 AM EDT [facility] Monocytes % 8 % LAB HEMATOLOGY METHOD 05/25/2024 4:34 AM EDT [facility] Eosinophils % 1 % LAB HEMATOLOGY METHOD 05/25/2024 4:34 AM EDT [facility] Basophils % 0 % LAB HEMATOLOGY METHOD 05/25/2024 4:34 AM EDT [facility] Blasts Absolute 0.00 10*3/UL LAB HEMATOLOGY METHOD 05/25/2024 4:34 AM EDT [facility] Promyelocytes Absolute 0.00 10*3/uL LAB HEMATOLOGY METHOD 05/25/2024 4:34 AM EDT [facility] Myelocytes Absolute 0.42 10*3/uL LAB HEMATOLOGY METHOD 05/25/2024 4:34 AM EDT [facility] Metamyelocytes Absolute 2.09 10*3/uL LAB HEMATOLOGY METHOD 05/25/2024 4:34 AM EDT [facility] Neutrophils Absolute 33.52(H) 1.60 - 6.10 10*3/uL LAB HEMATOLOGY METHOD 05/25/2024 4:34 AM EDT [facility] Lymphocytes Absolute 2.09 1.20 - 3.90 10*3/uL LAB HEMATOLOGY METHOD 05/25/2024 4:34 AM EDT [facility] Reactive Lymphocytes Absolute 0.00 10*3/uL LAB HEMATOLOGY METHOD 05/25/2024 4:34 AM EDT [facility] Monocytes Absolute 3.35(H) 0.30 - 0.90 10*3/uL LAB HEMATOLOGY METHOD 05/25/2024 4:34 AM EDT [facility] Eosinophils Absolute 0.42 0.00 - 0.50 10*3/uL LAB HEMATOLOGY METHOD 05/25/2024 4:34 AM EDT [facility] Basophils Absolute 0.00 0.00 - 0.10 10*3/uL LAB HEMATOLOGY METHOD 05/25/2024 4:34 AM EDT [facility] Blood Venous blood specimen / Unknown Venipuncture / Unknown 05/25/2024 2:45 AM EDT 05/25/2024 2:52 AM EDT us Maite Austin MD LAB BLOOD ORDERABLES Final Resu lt [facility] [address] [place] [address] * (ABNORMAL) Renal Function Panel, Plasma (05/25/2024 2:45 AM EDT) Glucose, Plasma 126(H) 74 - 99 mg/dL 05/25/2024 3:29 AM EDT [facility] BUN, Plasma 20 7 - 21 mg/dL 05/25/2024 3:29 AM EDT [facility] Creatinine, Plasma 0.91 0.60 - 1.10 mg/dL 05/25/2024 3:29 AM EDT [facility] BUN/Creatinine Ratio 22 05/25/2024 3:29 AM EDT [facility] Sodium, Plasma 138 136 - 145 mmol/L 05/25/2024 3:29 AM EDT [facility] Potassium, Plasma 5.0(H) 3.6 - 4.9 mmol/L 05/25/2024 3:29 AM EDT [facility] Chloride, Plasma 107 97 - 107 mmol/L 05/25/2024 3:29 AM EDT [facility] CO2, Plasma 25 22 - 29 mmol/L 05/25/2024 3:29 AM EDT [facility] Anion Gap 6 6 - 16 mmol/L 05/25/2024 3:29 AM EDT [facility] Total Calcium, Plasma 7.7(L) 8.9 - 10.2 mg/dL 05/25/2024 3:29 AM EDT [facility] Phosphorus, Plasma 3.5 2.5 - 4.5 mg/dL 05/25/2024 3:29 AM EDT [facility] Albumin, Plasma 1.9(L) 3.5 - 5.2 g/dL 05/25/2024 3:29 AM EDT [facility] eGFRcr 75.1 mL/min/1.7 3m*2 05/25/2024 3:29 AM EDT [facility] Comment:Reported eGFRcr in m L/min/1.73m2 is based the CKD-EPI 2020 equation that does not use a race coefficient. Blood Venous blood specimen / Unknown Venipuncture / Unknown 05/25/2024 2:45 AM EDT 05/25/2024 2:52 AM EDT Lora Llanes APRN LAB BLOOD ORDERABLES Final Result [facility] [address] [place] [address] * Magnesium, Plasma (05/25/2024 2:45 AM EDT) Magnesium, Plasma 2.4 1.9 - 2.4 mg/dL 05/25/2024 3:29 AM EDT [facility] Blood Venous blood specimen / Unknown Venipuncture / Unknown 05/25/2024 2:45 AM EDT 05/25/2024 2:52 AM EDT us Maite Austin MD LAB BLOOD ORDERABLES Final Resu lt [facility] [address] [place] [address] * (ABNORMAL) CBC and Differential (05/25/2024 2:45 AM EDT) WBC Count 41.90(H) 3.70 - 10.30 10*3/uL LAB HEMATOLOGY METHOD 05/25/2024 4:34 AM EDT [facility] RBC Count 2.50(L) 3.90 - 5.20 10*6/uL LAB HEMATOLOGY METHOD 05/25/2024 4:34 AM EDT [facility] HGB 7.5(L) 11.2 - 15.7 g/dL LAB HEMATOLOGY METHOD 05/25/2024 4:34 AM EDT [facility] HCT 23.1(L) 34.0 - 45.0 % LAB HEMATOLOGY METHOD 05/25/2024 4:34 AM EDT [facility] Platelet Count 352 155 - 369 10*3/uL LAB HEMATOLOGY METHOD 05/25/2024 4:34 AM EDT [facility] MCV 92 79 - 98 fL LAB HEMATOLOGY METHOD 05/25/2024 4:34 AM EDT [facility] MCH 30.0 26.0 - 32.0 pg LAB HEMATOLOGY METHOD 05/25/2024 4:34 AM EDT [facility] MCHC 32.5 30.7 - 35.5 g/dL LAB HEMATOLOGY METHOD 05/25/2024 4:34 AM EDT [facility] RDW 16.2(H) 11.5 - 14.5 % LAB HEMATOLOGY METHOD 05/25/2024 4:34 AM EDT [facility] MPV 10.3 8.8 - 12.5 fL LAB HEMATOLOGY METHOD 05/25/2024 4:34 AM EDT [facility] nRBC 0.6(H) <=0.0 per 100 WBCs LAB HEMATOLOGY METHOD 05/25/2024 4:34 AM EDT [facility] Differential Type Manual LAB HEMATOLOGY METHOD 05/25/2024 4:34 AM EDT [facility] Blood Venous blood specimen / Unknown Venipuncture / Unknown 05/25/2024 2:45 AM EDT 05/25/2024 2:52 AM EDT Narrative [facility] - 05/25/2024 4:34 AM EDT Therapeutic [...] MD LAB BLOOD ORDERABLES Final Resu lt [facility] [address] [place] [address] * [facility], E/M 30-74 MINUTES (05/24/2024 11:04 [...] LAB HEMATOLOGY METHOD 05/24/2024 1:46 PM EDT [facility] Echinocytes Present LAB HEMATOLOGY METHOD 05/24/2024 1:46 PM EDT [facility] RBC Morphology Slide Reviewed LAB HEMATOLOGY METHOD 05/24/2024 1:46 PM EDT [facility] Platelet Estimate Platelet smear estimate consistent with automated count LAB HEMATOLOGY METHOD 05/24/2024 1:46 PM EDT [facility] Blood Venous blood specimen / Unknown Venipuncture / Unknown 05/24/2024 10:18 AM EDT 05/24/2024 10:48 AM EDT us Maite Austin MD LAB BLOOD ORDERABLES Final Resu lt [facility] [address] [place] [address] * (ABNORMAL) Manual Differential (05/24/2024 10:18 AM EDT) Blasts % 0 % LAB HEMATOLOGY METHOD 05/24/2024 1:46 PM EDT [facility] Promyelocytes % 0 % LAB HEMATOLOGY METHOD 05/24/2024 1:46 PM EDT [facility] Myelocytes % 2 % LAB HEMATOLOGY METHOD 05/24/2024 1:46 PM EDT [facility] Metamyelocytes % 4 % LAB HEMATOLOGY METHOD 05/24/2024 1:46 PM EDT [facility] Neutrophils % 80 % LAB HEMATOLOGY METHOD 05/24/2024 1:46 PM EDT [facility] Lymphocytes % 8 % LAB HEMATOLOGY METHOD 05/24/2024 1:46 PM EDT [facility] Reactive Lymphocytes % 0 % LAB HEMATOLOGY METHOD 05/24/2024 1:46 PM EDT [facility] Monocytes % 6 % LAB HEMATOLOGY METHOD 05/24/2024 1:46 PM EDT [facility] Eosinophils % 0 % LAB HEMATOLOGY METHOD 05/24/2024 1:46 PM EDT [facility] Basophils % 0 % LAB HEMATOLOGY METHOD 05/24/2024 1:46 PM EDT [facility] Blasts Absolute 0.00 10*3/UL LAB HEMATOLOGY METHOD 05/24/2024 1:46 PM EDT [facility] Promyelocytes Absolute 0.00 10*3/uL LAB HEMATOLOGY METHOD 05/24/2024 1:46 PM EDT [facility] Myelocytes Absolute 0.70 10*3/uL LAB HEMATOLOGY METHOD 05/24/2024 1:46 PM EDT [facility] Metamyelocytes Absolute 1.41 10*3/uL LAB HEMATOLOGY METHOD 05/24/2024 1:46 PM EDT [facility] Neutrophils Absolute 28.17(H) 1.60 - 6.10 10*3/uL LAB HEMATOLOGY METHOD 05/24/2024 1:46 PM EDT [facility] Lymphocytes Absolute 2.82 1.20 - 3.90 10*3/uL LAB HEMATOLOGY METHOD 05/24/2024 1:46 PM EDT [facility] Reactive Lymphocytes Absolute 0.00 10*3/uL LAB HEMATOLOGY METHOD 05/24/2024 1:46 PM EDT [facility] Monocytes Absolute 2.11(H) 0.30 - 0.90 10*3/uL LAB HEMATOLOGY METHOD 05/24/2024 1:46 PM EDT [facility] Eosinophils Absolute 0.00 0.00 - 0.50 10*3/uL LAB HEMATOLOGY METHOD 05/24/2024 1:46 PM EDT [facility] Basophils Absolute 0.00 0.00 - 0.10 10*3/uL LAB HEMATOLOGY METHOD 05/24/2024 1:46 PM EDT [facility] Blood Venous blood specimen / Unknown Venipuncture / Unknown 05/24/2024 10:18 AM EDT 05/24/2024 10:48 AM EDT us Maite Austin MD LAB BLOOD ORDERABLES Final Resu lt [facility] [address] [place] [address] * (ABNORMAL) Basic metabolic panel (05/24/2024 10:18 AM EDT) Glucose, Plasma 182(H) 74 - 99 mg/dL 05/24/2024 11:13 AM EDT [facility] BUN, Plasma 28(H) 7 - 21 mg/dL 05/24/2024 11:13 AM EDT [facility] Creatinine, Plasma 1.18(H) 0.60 - 1.10 mg/dL 05/24/2024 11:13 AM EDT [facility] BUN/Creatinine Ratio 24 05/24/2024 11:13 AM EDT [facility] Sodium, Plasma 137 136 - 145 mmol/L 05/24/2024 11:13 AM EDT [facility] Potassium, Plasma 5.0(H) 3.6 - 4.9 mmol/L 05/24/2024 11:13 AM EDT [facility] Chloride, Plasma 106 97 - 107 mmol/L 05/24/2024 11:13 AM EDT [facility] CO2, Plasma 21(L) 22 - 29 mmol/L 05/24/2024 11:13 AM EDT [facility] Anion Gap 10 6 - 16 mmol/L 05/24/2024 11:13 AM EDT [facility] Total Calcium, Plasma 8.1(L) 8.9 - 10.2 mg/dL 05/24/2024 11:13 AM EDT [facility] eGFRcr 55.0 mL/min/1.7 3m*2 05/24/2024 11:13 AM EDT [facility] Comment:Reported eGFRcr in m L/min/1.73m2 is based the CKD-EPI 2020 equation that does not use a race coefficient. Blood Venous blood specimen / Unknown Venipuncture / Unknown 05/24/2024 10:18 AM EDT 05/24/2024 10:42 AM EDT us aMite Austin MD LAB BLOOD ORDERABLES Final Resu lt [facility] [address] [place] [address] * (ABNORMAL) Magnesium, Plasma (05/24/2024 10:18 AM EDT) Magnesium, Plasma 2.7(H) 1.9 - 2.4 mg/dL 05/24/2024 11:13 AM EDT [facility] Blood Venous blood specimen / Unknown Venipuncture / Unknown 05/24/2024 10:18 AM EDT 05/24/2024 10:42 AM EDT us Maite Austin MD LAB BLOOD ORDERABLES Final Resu lt [facility] [address] [place] [address] * (ABNORMAL) CBC and Differential (05/24/2024 10:18 AM EDT) WBC Count 35.21(H) 3.70 - 10.30 10*3/uL LAB HEMATOLOGY METHOD 05/24/2024 1:46 PM EDT [facility] RBC Count 2.93(L) 3.90 - 5.20 10*6/uL LAB HEMATOLOGY METHOD 05/24/2024 1:46 PM EDT [facility] HGB 8.7(L) 11.2 - 15.7 g/dL LAB HEMATOLOGY METHOD 05/24/2024 1:46 PM EDT [facility] HCT 26.8(L) 34.0 - 45.0 % LAB HEMATOLOGY METHOD 05/24/2024 1:46 PM EDT [facility] Platelet Count 375(H) 155 - 369 10*3/uL LAB HEMATOLOGY METHOD 05/24/2024 1:46 PM EDT [facility] MCV 92 79 - 98 fL LAB HEMATOLOGY METHOD 05/24/2024 1:46 PM EDT [facility] MCH 29.7 26.0 - 32.0 pg LAB HEMATOLOGY METHOD 05/24/2024 1:46 PM EDT [facility] MCHC 32.5 30.7 - 35.5 g/dL LAB HEMATOLOGY METHOD 05/24/2024 1:46 PM EDT [facility] RDW 15.8(H) 11.5 - 14.5 % LAB HEMATOLOGY METHOD 05/24/2024 1:46 PM EDT [facility] MPV 10.3 8.8 - 12.5 fL LAB HEMATOLOGY METHOD 05/24/2024 1:46 PM EDT [facility] nRBC 0.4(H) <=0.0 per 100 WBCs LAB HEMATOLOGY METHOD 05/24/2024 1:46 PM EDT [facility] Differential Type Manual LAB HEMATOLOGY METHOD 05/24/2024 1:46 PM EDT [facility] Blood Venous blood specimen / Unknown Venipuncture / Unknown 05/24/2024 10:18 AM EDT 05/24/2024 10:48 AM EDT Narrative [facility] - 05/24/2024 1:46 PM EDT Therapeutic [...] MD LAB BLOOD ORDERABLES Final Resu lt [facility] [address] [place] [address] * XR Chest 1 View (05/24/2024 8:51 [...] 05/24/2024 6:11 AM EDT [facility] 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 SullivanBryanna 05/25/19 6:11 AM EDT [facility] Device ID [id number] 05/24/2024 6:11 AM EDT [facility] Specimen Type POC Capillary 05/24/2024 6:11 AM EDT [facility] Blood Capillary blood specimen / Unknown 05/24/2024 6:09 AM EDT 05/24/2024 6:11 AM EDT us Maite Austin MD LAB POINT OF CARE TE ST DOCKED DEVICE UNSOLICITED RESULTS Final Result [facility] [address] [place] [address] * (ABNORMAL) Blood gas panel, arterial (05/23/2024 7:54 PM EDT) pH, Arterial 7.29(L) 7.35 - 7.45 LAB HEMATOLOGY METHOD 05/23/2024 8:04 PM EDT [facility] pCO2, Arterial 44 35 - 48 mmHg LAB HEMATOLOGY METHOD 05/23/2024 8:04 PM EDT [facility] pO2, Arterial 182(H) 83 - 108 mmHg LAB HEMATOLOGY METHOD 05/23/2024 8:04 PM EDT [facility] SO2, Measured, Arterial 100(H) 94 - 98 % LAB HEMATOLOGY METHOD 05/23/2024 8:04 PM EDT [facility] Base Excess, Arterial -5.1(L) -2.0 - 3.0 mmol/L LAB HEMATOLOGY METHOD 05/23/2024 8:04 PM EDT [facility] Bicarbonate, Calculated, Arterial 21(L) 22 - 26 mmol/L LAB HEMATOLOGY METHOD 05/23/2024 8:04 PM EDT [facility] Hematocrit, Whole Blood 34.4 34.0 - 45.0 % LAB HEMATOLOGY METHOD 05/23/2024 8:04 PM EDT [facility] Sodium, Whole Blood 133(L) 136 - 145 mmol/L LAB HEMATOLOGY METHOD 05/23/2024 8:04 PM EDT [facility] Potassium, Whole Blood 5.0(H) 3.6 - 4.9 mmol/L LAB HEMATOLOGY METHOD 05/23/2024 8:04 PM EDT [facility] Chloride, Whole Blood 107 97 - 107 mmol/L LAB HEMATOLOGY METHOD 05/23/2024 8:04 PM EDT [facility] Glucose, Whole Blood 266(H) 74 - 99 mg/dL LAB HEMATOLOGY METHOD 05/23/2024 8:04 PM EDT [facility] Ionized Calcium, Whole Blood 4.2(L) 4.6 - 5.1 mg/dL LAB HEMATOLOGY METHOD 05/23/2024 8:04 PM EDT [facility] Lactate, Arterial, Whole Blood 2.0(H) 0.5 - 1.6 mmol/L LAB HEMATOLOGY METHOD 05/23/2024 8:04 PM EDT [facility] Blood Arterial blood specimen / Unknown Arterial Puncture / Unknown 05/23/2024 7:54 PM EDT 05/23/2024 8:02 PM EDT us Maite Austin MD LAB BLOOD ORDERABLES Final Resu lt Performing Organization Address [facility]/ZIP Co de Phone Number [facility] [address] [place] [address] * Morphology (05/23/2024 7:39 PM EDT) Polychromasia Moderate LAB HEMATOLOGY METHOD 05/23/2024 8:47 PM EDT [facility] Echinocytes Present LAB HEMATOLOGY METHOD 05/23/2024 8:47 PM EDT [facility] RBC Morphology Slide Reviewed LAB HEMATOLOGY METHOD 05/23/2024 8:47 PM EDT [facility] Platelet Estimate Platelet smear estimate consistent with automated count LAB HEMATOLOGY METHOD 05/23/2024 8:47 PM EDT [facility] Blood Venous blood specimen / Unknown Venipuncture / Unknown 05/23/2024 7:39 PM EDT 05/23/2024 7:45 PM EDT us Reyna Obregon APRN LAB BLOOD ORDERABLES Namrata l Result Performing Organization Address City/[facility]/ZIP Co de Phone Number [facility] [address] [place] [address] * (ABNORMAL) Manual Differential (05/23/2024 7:39 PM EDT) Blasts % 0 % LAB HEMATOLOGY METHOD 05/23/2024 8:47 PM EDT [facility] Promyelocytes % 0 % LAB HEMATOLOGY METHOD 05/23/2024 8:47 PM EDT [facility] Myelocytes % 8 % LAB HEMATOLOGY METHOD 05/23/2024 8:47 PM EDT [facility] Metamyelocytes % 4 % LAB HEMATOLOGY METHOD 05/23/2024 8:47 PM EDT [facility] Neutrophils % 76 % LAB HEMATOLOGY METHOD 05/23/2024 8:47 PM EDT [facility] Lymphocytes % 6 % LAB HEMATOLOGY METHOD 05/23/2024 8:47 PM EDT [facility] Reactive Lymphocytes % 1 % LAB HEMATOLOGY METHOD 05/23/2024 8:47 PM EDT [facility] Monocytes % 4 % LAB HEMATOLOGY METHOD 05/23/2024 8:47 PM EDT [facility] Eosinophils % 1 % LAB HEMATOLOGY METHOD 05/23/2024 8:47 PM EDT [facility] Basophils % 0 % LAB HEMATOLOGY METHOD 05/23/2024 8:47 PM EDT [facility] Blasts Absolute 0.00 10*3/UL LAB HEMATOLOGY METHOD 05/23/2024 8:47 PM EDT [facility] Promyelocytes Absolute 0.00 10*3/uL LAB HEMATOLOGY METHOD 05/23/2024 8:47 PM EDT [facility] Myelocytes Absolute 2.59 10*3/uL LAB HEMATOLOGY METHOD 05/23/2024 8:47 PM EDT [facility] Metamyelocytes Absolute 1.29 10*3/uL LAB HEMATOLOGY METHOD 05/23/2024 8:47 PM EDT [facility] Neutrophils Absolute 24.57(H) 1.60 - 6.10 10*3/uL LAB HEMATOLOGY METHOD 05/23/2024 8:47 PM EDT [facility] Lymphocytes Absolute 1.94 1.20 - 3.90 10*3/uL LAB HEMATOLOGY METHOD 05/23/2024 8:47 PM EDT [facility] Reactive Lymphocytes Absolute 0.32 10*3/uL LAB HEMATOLOGY METHOD 05/23/2024 8:47 PM EDT [facility] Monocytes Absolute 1.29(H) 0.30 - 0.90 10*3/uL LAB HEMATOLOGY METHOD 05/23/2024 8:47 PM EDT [facility] Eosinophils Absolute 0.32 0.00 - 0.50 10*3/uL LAB HEMATOLOGY METHOD 05/23/2024 8:47 PM EDT [facility] Basophils Absolute 0.00 0.00 - 0.10 10*3/uL LAB HEMATOLOGY METHOD 05/23/2024 8:47 PM EDT [facility] Blood Venous blood specimen / Unknown Venipuncture / Unknown 05/23/2024 7:39 PM EDT 05/23/2024 7:45 PM EDT us Reyna Obregon ADMISSIONS SUPERVISOR LAB BLOOD ORDERABLES Namrata l Result [facility] [address] [place] [address] * (ABNORMAL) Renal Function Panel, Plasma (05/23/2024 7:39 PM EDT) Glucose, Plasma 280(H) 74 - 99 mg/dL 05/23/2024 8:14 PM EDT [facility] BUN, Plasma 20 7 - 21 mg/dL 05/23/2024 8:14 PM EDT [facility] Creatinine, Plasma 1.06 0.60 - 1.10 mg/dL 05/23/2024 8:14 PM EDT [facility] BUN/Creatinine Ratio 19 05/23/2024 8:14 PM EDT [facility] Sodium, Plasma 137 136 - 145 mmol/L 05/23/2024 8:14 PM EDT [facility] Potassium, Plasma 5.5(H) 3.6 - 4.9 mmol/L 05/23/2024 8:14 PM EDT [facility] Chloride, Plasma 107 97 - 107 mmol/L 05/23/2024 8:14 PM EDT [facility] CO2, Plasma 20(L) 22 - 29 mmol/L 05/23/2024 8:14 PM EDT [facility] Anion Gap 10 6 - 16 mmol/L 05/23/2024 8:14 PM EDT [facility] Total Calcium, Plasma 7.5(L) 8.9 - 10.2 mg/dL 05/23/2024 8:14 PM EDT [facility] Phosphorus, Plasma 6.4(H) 2.5 - 4.5 mg/dL 05/23/2024 8:14 PM EDT [facility] Albumin, Plasma 1.7(L) 3.5 - 5.2 g/dL 05/23/2024 8:14 PM EDT [facility] eGFRcr 62.6 mL/min/1.7 3m*2 05/23/2024 8:14 PM EDT [facility] Comment:Reported eGFRcr in m L/min/1.73m2 is based the CKD-EPI 2020 equation that does not use a race coefficient. Blood Venous blood specimen / Unknown Venipuncture / Unknown 05/23/2024 7:39 PM EDT 05/23/2024 7:45 PM EDT us Maite Austin MD LAB BLOOD ORDERABLES Final Resu lt Performing Organization Address City/[facility]/ZIP Co de Phone Number [facility] [address] [place] [address] * (ABNORMAL) Magnesium (05/23/2024 7:39 PM EDT) Magnesium, Plasma 1.8(L) 1.9 - 2.4 mg/dL 05/23/2024 8:14 PM EDT [facility] Blood Venous blood specimen / Unknown Venipuncture / Unknown 05/23/2024 7:39 PM EDT 05/23/2024 7:45 PM EDT us Maite Austin MD LAB BLOOD ORDERABLES Final Resu lt [facility] [address] [place] [address] * (ABNORMAL) Comprehensive metabolic panel (05/23/2024 7:39 PM EDT) Glucose, Plasma 280(H) 74 - 99 mg/dL 05/23/2024 8:14 PM EDT [facility] BUN, Plasma 20 7 - 21 mg/dL 05/23/2024 8:14 PM EDT [facility] Creatinine, Plasma 1.06 0.60 - 1.10 mg/dL 05/23/2024 8:14 PM EDT [facility] BUN/Creatinine Ratio 19 05/23/2024 8:14 PM EDT [facility] Sodium, Plasma 137 136 - 145 mmol/L 05/23/2024 8:14 PM EDT [facility] Potassium, Plasma 5.5(H) 3.6 - 4.9 mmol/L 05/23/2024 8:14 PM EDT [facility] Chloride, Plasma 107 97 - 107 mmol/L 05/23/2024 8:14 PM EDT [facility] CO2, Plasma 20(L) 22 - 29 mmol/L 05/23/2024 8:14 PM EDT [facility] Anion Gap 10 6 - 16 mmol/L 05/23/2024 8:14 PM EDT [facility] Total Calcium, Plasma 7.5(L) 8.9 - 10.2 mg/dL 05/23/2024 8:14 PM EDT [facility] Total Protein 5.4(L) 6.3 - 7.9 g/dL 05/23/2024 8:14 PM EDT [facility] Albumin, Plasma 1.7(L) 3.5 - 5.2 g/dL 05/23/2024 8:14 PM EDT [facility] AST, Plasma 26 10 - 35 U/L 05/23/2024 8:14 PM EDT [facility] ALT, Plasma 14 10 - 35 U/L 05/23/2024 8:14 PM EDT [facility] Alkaline Phosphatase, Plasma 97 35 - 104 U/L 05/23/2024 8:14 PM EDT [facility] Total Bilirubin, Plasma 0.9 0.2 - 1.1 mg/dL 05/23/2024 8:14 PM EDT [facility] eGFRcr 62.6 mL/min/1.7 3m*2 05/23/2024 8:14 PM EDT [facility] Comment:Reported eGFRcr in m L/min/1.73m2 is based the CKD-EPI 2020 equation that does not use a race coefficient. Blood Venous blood specimen / Unknown Venipuncture / Unknown 05/23/2024 7:39 PM EDT 05/23/2024 7:45 PM EDT us Reyna Obregon APRN LAB BLOOD ORDERABLES Namrata clarita Result [facility] [address] [place] [address] * (ABNORMAL) CBC and Differential (05/23/2024 7:39 PM EDT) WBC Count 32.33(H) 3.70 - 10.30 10*3/uL LAB HEMATOLOGY METHOD 05/23/2024 8:47 PM EDT [facility] RBC Count 3.73(L) 3.90 - 5.20 10*6/uL LAB HEMATOLOGY METHOD 05/23/2024 8:47 PM EDT [facility] HGB 11.1(L) 11.2 - 15.7 g/dL LAB HEMATOLOGY METHOD 05/23/2024 8:47 PM EDT [facility] HCT 34.2 34.0 - 45.0 % LAB HEMATOLOGY METHOD 05/23/2024 8:47 PM EDT [facility] Platelet Count 497(H) 155 - 369 10*3/uL LAB HEMATOLOGY METHOD 05/23/2024 8:47 PM EDT [facility] MCV 92 79 - 98 fL LAB HEMATOLOGY METHOD 05/23/2024 8:47 PM EDT [facility] MCH 29.8 26.0 - 32.0 pg LAB HEMATOLOGY METHOD 05/23/2024 8:47 PM EDT [facility] MCHC 32.5 30.7 - 35.5 g/dL LAB HEMATOLOGY METHOD 05/23/2024 8:47 PM EDT [facility] RDW 14.8(H) 11.5 - 14.5 % LAB HEMATOLOGY METHOD 05/23/2024 8:47 PM EDT [facility] MPV 10.1 8.8 - 12.5 fL LAB HEMATOLOGY METHOD 05/23/2024 8:47 PM EDT [facility] nRBC 0.5(H) <=0.0 per 100 WBCs LAB HEMATOLOGY METHOD 05/23/2024 8:47 PM EDT [facility] Differential Type Manual LAB HEMATOLOGY METHOD 05/23/2024 8:47 PM EDT [facility] Blood Venous blood specimen / Unknown Venipuncture / Unknown 05/23/2024 7:39 PM EDT 05/23/2024 7:45 PM EDT Narrative [facility] - 05/23/2024 8:47 PM EDT Therapeutic [...] is no longer being reported. Reyna Obregon ADMISSIONS SUPERVISOR LAB BLOOD ORDERABLES Namrata l Result Performing Organization Address City/State/[facility] Co de Phone Number [facility] [address] [place] [address] * Transfuse RBC (05/23/2024 4:18 PM EDT) Mayda Bhatti [employer]LECTRIC MOTOR REPAIR SUPERVISOR BLOOD TRANSFUSION ORDERABL ES Edited Result - Final * Transfuse RBC: 1 Units (05/23/2024 4:18 PM EDT) Mayda Bhatti ELECTRIC MOTOR REPAIR SUPERVISOR BLOOD TRANSFUSION ORDERABL ES Edited Result - Final * Surgical Pathology Exam (05/23/2024 4:09 PM EDT) Case Report Surgical Pathology Case: [id number] Authorizing Provider: Lidia Troncoso MD Collected: 05/23/2024 1609 Ordering Location: [facility] Received: 05/24/2024 0749 Pathologist: Eliva Morgan MD Specimen: Other (specify site), Left Colon (fresh for permanent) 05/28/2024 11:11 AM EDT [facility] Final Diagnosis LARGE INTESTINE. 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 - INVOLVEMENT OF ONE RESECTION MARGIN. 05/28/2024 11:11 AM [facility] at 1111 EDT Clinical Information Colon perforation (CMS/HCC) [K63.1] s/p 4vCABG on 05/06/24. 05/28/2024 11:11 AM [facility] Gross Description A. LEFT COLON (FRESH FOR PERMANENT) The specimens received fresh, placed in formalin labeled l t colon and consists of a 33 cm [...] x 7.8 cm unremarkable mesentery is submitted. Handle And Vent Machine Operator sections are submitted as follows: A1: Resection margin A2: Opposite resection margin A3-A4: Area of defect, full-thickness A5: Area of fibrosis and stricturing A6: Area of fibrosis and stricturing A7: Area of fibrosis and stricturing A8: Uninvolved colonic mucosa A9: Junction between involved in uninvolved mucosa A10: Two lymph node candidates, entirely submitted Cold Time: 2h 41m 05/28/2024 11:11 AM [facility] Note: A resident was involved in the service. I attest I examined the relevant preparations for the specimens and confirmed the diagnosis or interpretation. 05/28/2024 11:11 AM EDT [facility] Tissue Topography unknown / Unknown 05/23/2024 4:09 PM EDT 05/24/2024 7:49 AM EDT Comment:Pre-op diagnosis: Colon perforation (CMS/HCC) [K63.1] us Lidia Troncoso MD LAB PATHOLOGY ORDERABLES Final Result [facility] [address] [place] [address] * (ABNORMAL) Blood gas, arterial (05/23/2024 2:14 PM EDT) pH, Arterial 7.44 7.35 - 7.45 LAB HEMATOLOGY METHOD 05/23/2024 2:35 PM EDT [facility] pCO2, Arterial 39 35 - 48 mmHg LAB HEMATOLOGY METHOD 05/23/2024 2:35 PM EDT [facility] pO2, Arterial 248(H) 83 - 108 mmHg LAB HEMATOLOGY METHOD 05/23/2024 2:35 PM EDT [facility] SO2, Measured, Arterial 99(H) 94 - 98 % LAB HEMATOLOGY METHOD 05/23/2024 2:35 PM EDT [facility] Base Excess, Arterial 1.8 -2.0 - 3.0 mmol/L LAB HEMATOLOGY METHOD 05/23/2024 2:35 PM EDT [facility] Bicarbonate, Calculated, Arterial 26 22 - 26 mmol/L LAB HEMATOLOGY METHOD 05/23/2024 2:35 PM EDT [facility] Hematocrit, Whole Blood 26.3(L) 34.0 - 45.0 % LAB HEMATOLOGY METHOD 05/23/2024 2:35 PM EDT [facility] Sodium, Whole Blood 137 136 - 145 mmol/L LAB HEMATOLOGY METHOD 05/23/2024 2:35 PM EDT [facility] Potassium, Whole Blood 3.9 3.6 - 4.9 mmol/L LAB HEMATOLOGY METHOD 05/23/2024 2:35 PM EDT [facility] Chloride, Whole Blood 104 97 - 107 mmol/L LAB HEMATOLOGY METHOD 05/23/2024 2:35 PM EDT [facility] Glucose, Whole Blood 134(H) 74 - 99 mg/dL LAB HEMATOLOGY METHOD 05/23/2024 2:35 PM EDT [facility] Ionized Calcium, Whole Blood 4.4(L) 4.6 - 5.1 mg/dL LAB HEMATOLOGY METHOD 05/23/2024 2:35 PM EDT [facility] Lactate, Arterial, Whole Blood 1.2 0.5 - 1.6 mmol/L LAB HEMATOLOGY METHOD 05/23/2024 2:35 PM EDT [facility] Blood Arterial blood specimen / Unknown Arterial Puncture / Unknown 05/23/2024 2:14 PM EDT 05/23/2024 2:34 PM EDT Mayda Bhatti CRNA LAB BLOOD ORDERABLES Final Result Performing Organization Address City/[facility] Co de Phone Number [facility] [address] [place] [address] * Prepare Leukocyte Reduced RBC: 2 Units (05/23/2024 2:04 PM EDT) Product Code [id number] BLOO D BANK Dispense Status Transfused BLOOD BANK Blood Expiration Date [id number] BLOOD BANK Unit Number [id number] B LOOD BANK Product Blood Type 7300 BLOOD BANK Blood Type B+ BLOOD BANK Crossmatch Compatible BLOOD BANK Product Code [id number] BLOO D BANK Dispense Status Returned BLOOD BANK Blood Expiration Date [id number] BLOOD BANK Unit Number [id number] B LOOD BANK Product Blood Type 7300 BLOOD BANK Blood Type B+ BLOOD BANK Crossmatch Compatible BLOOD BANK Other Mayda Bhatti [employer]PA[employer] SUPERVISOR BLOOD BANK PRODUCT ORDERAB LES Final Result Performing Organization Address City/[facility]/ZIP Co de Phone Number BLOOD BANK [address] * (ABNORMAL) Renal Function Panel, Plasma (05/23/2024 1:00 PM EDT) Glucose, Plasma 136(H) 74 - 99 mg/dL 05/23/2024 2:16 PM EDT [facility] BUN, Plasma 13 7 - 21 mg/dL 05/23/2024 2:16 PM EDT [facility] Creatinine, Plasma 0.68 0.60 - 1.10 mg/dL 05/23/2024 2:16 PM EDT [facility] BUN/Creatinine Ratio 19 05/23/2024 2:16 PM EDT [facility] Sodium, Plasma 137 136 - 145 mmol/L 05/23/2024 2:16 PM EDT [facility] Potassium, Plasma 4.2 3.6 - 4.9 mmol/L 05/23/2024 2:16 PM EDT [facility] Chloride, Plasma 104 97 - 107 mmol/L 05/23/2024 2:16 PM EDT [facility] CO2, Plasma 25 22 - 29 mmol/L 05/23/2024 2:16 PM EDT [facility] Anion Gap 8 6 - 16 mmol/L 05/23/2024 2:16 PM EDT [facility] Total Calcium, Plasma 7.7(L) 8.9 - 10.2 mg/dL 05/23/2024 2:16 PM EDT [facility] Phosphorus, Plasma 4.1 2.5 - 4.5 mg/dL 05/23/2024 2:16 PM EDT [facility] Albumin, Plasma 2.1(L) 3.5 - 5.2 g/dL 05/23/2024 2:16 PM EDT [facility] eGFRcr 103.6 mL/min/1.7 3m*2 05/23/2024 2:16 PM EDT [facility] Comment:Reported eGFRcr in m L/min/1.73m2 is based the CKD-EPI 2020 equation that does not use a race coefficient. Blood Venous blood specimen / Unknown Venipuncture / Unknown 05/23/2024 1:00 PM EDT 05/23/2024 1:04 PM EDT us Reyna Obregon ADMISSIONS SUPERVISOR LAB BLOOD ORDERABLES Namrata l Result [facility] [address] [place] [address] * Magnesium (05/23/2024 1:00 PM EDT) Magnesium, Plasma 2.1 1.9 - 2.4 mg/dL 05/23/2024 2:16 PM EDT [facility] Blood Venous blood specimen / Unknown Venipuncture / Unknown 05/23/2024 1:00 PM EDT 05/23/2024 1:04 PM EDT us Reyna Obregon APRN LAB BLOOD ORDERABLES Namrata l Result Performing Organization Address City/[facility]/ZIP Co de Phone Number [facility] [address] [place] [address] * Protime-INR (05/23/2024 12:41 PM EDT) Prothrombin Time 13.6 12.0 - 14.3 sec LAB COAGULATION METHOD 05/23/2024 1:34 PM EDT [facility] INR 1.0 0.9 - 1.1 LAB COAGULATION METHOD 05/23/2024 1:34 PM EDT [facility] Blood Venous blood specimen / Unknown Venipuncture / Unknown 05/23/2024 12:41 PM EDT 05/23/2024 1:04 PM EDT Narrative [facility] - 05/23/2024 1:34 PM EDT OPTIMAL INR RANGES FOR PATIENT ON ORAL ANTICOAGULANT THERAPY Prevention of venous thromboembolism INR 2.0 to 3.0 In patients with heart disease: Atrial fibrillation INR 2.0 to 3.0 Valvular heart disease INR 2.0 to 3.0 Tissue heart valves INR 2.0 to 3.0 Mechanical prosthetic valves INR 2.5 to 3.5 Prevention of recurrent AR INR 2.5 to 3.5 us Maite Austin MD LAB BLOOD ORDERABLES Final Resu lt Performing Organization Address City/[facility]/ZIP Co de Phone Number [facility] [address] [place] [address] * (ABNORMAL) Ionized calcium, whole blood (05/23/2024 11:40 AM EDT) Ionized Calcium, Whole Blood 4.3(L) 4.6 - 5.1 mg/dL LAB HEMATOLOGY METHOD 05/23/2024 11:48 AM EDT [facility] Blood Venous blood specimen / Unknown Venipuncture / Unknown 05/23/2024 11:40 AM EDT 05/23/2024 11:47 AM EDT us Reyna Obregon APRN LAB BLOOD ORDERABLES Namrata l Result Performing Organization Address City/[facility]/ZIP Co de Phone Number [facility] [address] [place] [address] * Blood Culture (Aerobic/Anaerobet Set) (05/23/2024 10:20 AM EDT) Culture No growth at day 5 ELI 05/28/2024 11:01 AM EDT [facility] Blood Venous blood specimen / Unknown Venipuncture / Unknown 05/23/2024 10:20 AM EDT 05/23/2024 10:28 AM EDT us Maite Austin MD LAB MICROBIOLOGY - [facility] Final Result Performing Organization Address [facility] de Phone Number [facility] [address] [place] [address] * (ABNORMAL) Hemoglobin and hematocrit, blood (05/23/2024 6:20 AM EDT) HGB 9.0(L) 11.2 - 15.7 g/dL LAB HEMATOLOGY METHOD 05/23/2024 6:38 AM EDT [facility] HCT 28.7(L) 34.0 - 45.0 % LAB HEMATOLOGY METHOD 05/23/2024 6:38 AM EDT [facility] Blood Venous blood specimen / Unknown Venipuncture / Unknown 05/23/2024 6:20 AM EDT 05/23/2024 6:31 AM EDT us Maite Austin MD LAB BLOOD ORDERABLES Final Resu lt Performing Organization Address City/[facility]/ZIP Co de Phone Number [facility] [address] [place] [phone] * (ABNORMAL) Hemoglobin and Hematocrit, Blood (05/23/2024 5:40 AM EDT) HGB 6.7(L) 11.2 - 15.7 g/dL LAB HEMATOLOGY METHOD 05/23/2024 6:02 AM EDT [facility] HCT 21.8(L) 34.0 - 45.0 % LAB HEMATOLOGY METHOD 05/23/2024 6:02 AM EDT [facility] Blood Venous blood specimen / Unknown Venipuncture / Unknown 05/23/2024 5:40 AM EDT 05/23/2024 5:52 AM EDT us Maite Austin MD LAB BLOOD ORDERABLES Final Resu lt [facility] [address] [place] [address] * (ABNORMAL) Renal Function Panel, Plasma (05/23/2024 5:40 AM EDT) [facility] Glucose, Plasma 117(H) 74 - 99 mg/dL 05/23/2024 6:22 AM EDT [facility] BUN, Plasma 12 7 - 21 mg/dL 05/23/2024 6:22 AM EDT [facility] Creatinine, Plasma 0.69 0.60 - 1.10 mg/dL 05/23/2024 6:22 AM EDT [facility] BUN/Creatinine Ratio 17 05/23/2024 6:22 AM EDT [facility] Sodium, Plasma 136 136 - 145 mmol/L 05/23/2024 6:22 AM EDT [facility] Potassium, Plasma 4.2 3.6 - 4.9 mmol/L 05/23/2024 6:22 AM EDT [facility] Chloride, Plasma 104 97 - 107 mmol/L 05/23/2024 6:22 AM EDT [facility] CO2, Plasma 24 22 - 29 mmol/L 05/23/2024 6:22 AM EDT [facility] Anion Gap 8 6 - 16 mmol/L 05/23/2024 6:22 AM EDT [facility] Total Calcium, Plasma 7.7(L) 8.9 - 10.2 mg/dL 05/23/2024 6:22 AM EDT [facility] Phosphorus, Plasma 3.9 2.5 - 4.5 mg/dL 05/23/2024 6:22 AM EDT [facility] Albumin, Plasma 1.8(L) 3.5 - 5.2 g/dL 05/23/2024 6:22 AM EDT [facility] eGFRcr 103.3 mL/min/1.7 3m*2 05/23/2024 6:22 AM EDT [facility] Comment:Reported eGFRcr in m L/min/1.73m2 is based the CKD-EPI 2020 equation that does not use a race coefficient. Blood Venous blood specimen / Unknown Venipuncture / Unknown 05/23/2024 5:40 AM EDT 05/23/2024 5:52 AM EDT Reyna A Sabas ADMISSIONS SUPERVISOR LAB BLOOD ORDERABLES Namrata l Result [facility] [address] [place] [address] * Magnesium (05/23/2024 5:40 AM EDT) Magnesium, Plasma 2.0 1.9 - 2.4 mg/dL 05/23/2024 6:22 AM EDT [facility] Blood Venous blood specimen / Unknown Venipuncture / Unknown 05/23/2024 5:40 AM EDT 05/23/2024 5:52 AM EDT Reyna A Sabas ADMISSIONS SUPERVISOR LAB BLOOD ORDERABLES Namrata l Result [facility] [address] [place] [address] * (ABNORMAL) Ionized calcium, whole blood (05/23/2024 5:40 AM EDT) Ionized Calcium, Whole Blood 4.3(L) 4.6 - 5.1 mg/dL LAB HEMATOLOGY METHOD 05/23/2024 5:55 AM EDT [facility] Blood Venous blood specimen / Unknown Venipuncture / Unknown 05/23/2024 5:40 AM EDT 05/23/2024 5:52 AM EDT us Reyna Obregon ADMISSIONS SUPERVISOR LAB BLOOD ORDERABLES Namrata l Result [facility] [address] [place] [address] * XR Chest 1 View (05/23/2024 2:32 [...] written report. Preliminary report signed by Katherin Camahco MD on 05/23/2024 9:14 AM By electronically [...] DO on 05/23/2024 9:53 AM Reyna Obregon APRN IMG CT PROCEDURES Final R esult * (ABNORMAL) Morphology (05/23/2024 1:15 AM EDT) RBC Fragments/Schist ocytes Slight(A) (none) LAB HEMATOLOGY METHOD 05/23/2024 2:53 AM EDT [facility] Polychromasia Moderate LAB HEMATOLOGY METHOD 05/23/2024 2:53 AM EDT [facility] RBC Morphology Slide Reviewed LAB HEMATOLOGY METHOD 05/23/2024 2:53 AM EDT [facility] Platelet Estimate Platelet smear estimate consistent with automated count LAB HEMATOLOGY METHOD 05/23/2024 2:53 AM EDT [facility] Clumped Platelets Present LAB HEMATOLOGY METHOD 05/23/2024 2:53 AM EDT [facility] Blood Venous blood specimen / Unknown Venipuncture / Unknown 05/23/2024 1:15 AM EDT 05/23/2024 1:23 AM EDT us Reyna Abreu Sabas ADMISSIONS SUPERVISOR LAB BLOOD ORDERABLES Namrata otto Result [facility] [address] [place] [address] * (ABNORMAL) Manual Differential (05/23/2024 1:15 AM EDT) Blasts % 0 % LAB HEMATOLOGY METHOD 05/23/2024 2:53 AM EDT [facility] Promyelocytes % 0 % LAB HEMATOLOGY METHOD 05/23/2024 2:53 AM EDT [facility] Myelocytes % 4 % LAB HEMATOLOGY METHOD 05/23/2024 2:53 AM EDT [facility] Metamyelocytes % 3 % LAB HEMATOLOGY METHOD 05/23/2024 2:53 AM EDT [facility] Neutrophils % 56 % LAB HEMATOLOGY METHOD 05/23/2024 2:53 AM EDT [facility] Lymphocytes % 26 % LAB HEMATOLOGY METHOD 05/23/2024 2:53 AM EDT [facility] Reactive Lymphocytes % 0 % LAB HEMATOLOGY METHOD 05/23/2024 2:53 AM EDT [facility] Monocytes % 7 % LAB HEMATOLOGY METHOD 05/23/2024 2:53 AM EDT [facility] Eosinophils % 3 % LAB HEMATOLOGY METHOD 05/23/2024 2:53 AM EDT [facility] Basophils % 1 % LAB HEMATOLOGY METHOD 05/23/2024 2:53 AM EDT [facility] Blasts Absolute 0.00 10*3/UL LAB HEMATOLOGY METHOD 05/23/2024 2:53 AM EDT [facility] Promyelocytes Absolute 0.00 10*3/uL LAB HEMATOLOGY METHOD 05/23/2024 2:53 AM EDT [facility] Myelocytes Absolute 0.77 10*3/uL LAB HEMATOLOGY METHOD 05/23/2024 2:53 AM EDT [facility] Metamyelocytes Absolute 0.57 10*3/uL LAB HEMATOLOGY METHOD 05/23/2024 2:53 AM EDT [facility] Neutrophils Absolute 10.72(H) 1.60 - 6.10 10*3/uL LAB HEMATOLOGY METHOD 05/23/2024 2:53 AM EDT [facility] Lymphocytes Absolute 4.98(H) 1.20 - 3.90 10*3/uL LAB HEMATOLOGY METHOD 05/23/2024 2:53 AM EDT [facility] Reactive Lymphocytes Absolute 0.00 10*3/uL LAB HEMATOLOGY METHOD 05/23/2024 2:53 AM EDT [facility] Monocytes Absolute 1.34(H) 0.30 - 0.90 10*3/uL LAB HEMATOLOGY METHOD 05/23/2024 2:53 AM EDT [facility] Eosinophils Absolute 0.57(H) 0.00 - 0.50 10*3/uL LAB HEMATOLOGY METHOD 05/23/2024 2:53 AM EDT [facility] Basophils Absolute 0.19(H) 0.00 - 0.10 10*3/uL LAB HEMATOLOGY METHOD 05/23/2024 2:53 AM EDT [facility] Blood Venous blood specimen / Unknown Venipuncture / Unknown 05/23/2024 1:15 AM EDT 05/23/2024 1:23 AM EDT us Reyna Orbegon ADMISSIONS SUPERVISOR LAB BLOOD ORDERABLES Namrata otto Result [facility] [address] [place] [address] * (ABNORMAL) Renal Function Panel, Plasma (05/23/2024 1:15 AM EDT) Glucose, Plasma 110(H) 74 - 99 mg/dL 05/23/2024 1:51 AM EDT [facility] BUN, Plasma 13 7 - 21 mg/dL 05/23/2024 1:51 AM EDT [facility] Creatinine, Plasma 0.67 0.60 - 1.10 mg/dL 05/23/2024 1:51 AM EDT [facility] BUN/Creatinine Ratio 19 05/23/2024 1:51 AM EDT [facility] Sodium, Plasma 136 136 - 145 mmol/L 05/23/2024 1:51 AM EDT [facility] Potassium, Plasma 4.0 3.6 - 4.9 mmol/L 05/23/2024 1:51 AM EDT [facility] Chloride, Plasma 103 97 - 107 mmol/L 05/23/2024 1:51 AM EDT [facility] CO2, Plasma 25 22 - 29 mmol/L 05/23/2024 1:51 AM EDT [facility] Anion Gap 8 6 - 16 mmol/L 05/23/2024 1:51 AM EDT [facility] Total Calcium, Plasma 7.9(L) 8.9 - 10.2 mg/dL 05/23/2024 1:51 AM EDT [facility] Phosphorus, Plasma 3.4 2.5 - 4.5 mg/dL 05/23/2024 1:51 AM EDT [facility] Albumin, Plasma 2.1(L) 3.5 - 5.2 g/dL 05/23/2024 1:51 AM EDT [facility] eGFRcr 104.0 mL/min/1.7 3m*2 05/23/2024 1:51 AM EDT [facility] Comment:Reported eGFRcr in m L/min/1.73m2 is based the CKD-EPI 2020 equation that does not use a race coefficient. Blood Venous blood specimen / Unknown Venipuncture / Unknown 05/23/2024 1:15 AM EDT 05/23/2024 1:24 AM EDT Reyna Obregon ADMISSIONS SUPERVISOR LAB BLOOD ORDERABLES Namrata l Result [facility] [address] [place] [address] * Magnesium (05/23/2024 1:15 AM EDT) Magnesium, Plasma 1.9 1.9 - 2.4 mg/dL 05/23/2024 1:51 AM EDT [facility] Blood Venous blood specimen / Unknown Venipuncture / Unknown 05/23/2024 1:15 AM EDT 05/23/2024 1:24 AM EDT Reyna A Sabas ADMISSIONS SUPERVISOR LAB BLOOD ORDERABLES Namrata l Result Performing Organization Address City/[facility]/ZIP Co de Phone Number [facility] [address] [place] [address] * (ABNORMAL) Ionized calcium, whole blood (05/23/2024 1:15 AM EDT) Ionized Calcium, Whole Blood 4.2(L) 4.6 - 5.1 mg/dL LAB HEMATOLOGY METHOD 05/23/2024 1:43 AM EDT [facility] Blood Venous blood specimen / Unknown Venipuncture / Unknown 05/23/2024 1:15 AM EDT 05/23/2024 1:38 AM EDT Reyna Lois Sabas ADMISSIONS SUPERVISOR LAB BLOOD ORDERABLES Namrata l Result Performing Organization Address [facility] Co de Phone Number [facility] [address] [place] [address] * (ABNORMAL) Comprehensive metabolic panel (05/23/2024 1:15 AM EDT) Glucose, Plasma 110(H) 74 - 99 mg/dL 05/23/2024 1:51 AM EDT [facility] BUN, Plasma 13 7 - 21 mg/dL 05/23/2024 1:51 AM EDT [facility] Creatinine, Plasma 0.67 0.60 - 1.10 mg/dL 05/23/2024 1:51 AM EDT [facility] BUN/Creatinine Ratio 19 05/23/2024 1:51 AM EDT [facility] Sodium, Plasma 136 136 - 145 mmol/L 05/23/2024 1:51 AM EDT [facility] Potassium, Plasma 4.0 3.6 - 4.9 mmol/L 05/23/2024 1:51 AM EDT [facility] Chloride, Plasma 103 97 - 107 mmol/L 05/23/2024 1:51 AM EDT [facility] CO2, Plasma 25 22 - 29 mmol/L 05/23/2024 1:51 AM EDT [facility] Anion Gap 8 6 - 16 mmol/L 05/23/2024 1:51 AM EDT [facility] Total Calcium, Plasma 7.9(L) 8.9 - 10.2 mg/dL 05/23/2024 1:51 AM EDT [facility] Total Protein 6.4 6.3 - 7.9 g/dL 05/23/2024 1:51 AM EDT [facility] Albumin, Plasma 2.1(L) 3.5 - 5.2 g/dL 05/23/2024 1:51 AM EDT [facility] AST, Plasma 29 10 - 35 U/L 05/23/2024 1:51 AM EDT [facility] ALT, Plasma 14 10 - 35 U/L 05/23/2024 1:51 AM EDT [facility] Alkaline Phosphatase, Plasma 121(H) 35 - 104 U/L 05/23/2024 1:51 AM EDT [facility] Total Bilirubin, Plasma 0.6 0.2 - 1.1 mg/dL 05/23/2024 1:51 AM EDT [facility] eGFRcr 104.0 mL/min/1.7 3m*2 05/23/2024 1:51 AM EDT [facility] Comment:Reported eGFRcr in m L/min/1.73m2 is based the CKD-EPI 2020 equation that does not use a race coefficient. Blood Venous blood specimen / Unknown Venipuncture / Unknown 05/23/2024 1:15 AM EDT 05/23/2024 1:24 AM EDT us Reyna Obregon ADMISSIONS SUPERVISOR LAB BLOOD ORDERABLES Namrata l Result [facility] [address] [place] [address] * (ABNORMAL) CBC and Differential (05/23/2024 1:15 AM EDT) WBC Count 19.15(H) 3.70 - 10.30 10*3/uL LAB HEMATOLOGY METHOD 05/23/2024 2:54 AM EDT [facility] RBC Count 3.31(L) 3.90 - 5.20 10*6/uL LAB HEMATOLOGY METHOD 05/23/2024 2:54 AM EDT [facility] HGB 9.5(L) 11.2 - 15.7 g/dL LAB HEMATOLOGY METHOD 05/23/2024 2:54 AM EDT [facility] HCT 30.4(L) 34.0 - 45.0 % LAB HEMATOLOGY METHOD 05/23/2024 2:54 AM EDT [facility] Platelet Count 558(H) 155 - 369 10*3/uL LAB HEMATOLOGY METHOD 05/23/2024 2:54 AM EDT [facility] MCV 92 79 - 98 fL LAB HEMATOLOGY METHOD 05/23/2024 2:54 AM EDT [facility] MCH 28.7 26.0 - 32.0 pg LAB HEMATOLOGY METHOD 05/23/2024 2:54 AM EDT [facility] MCHC 31.3 30.7 - 35.5 g/dL LAB HEMATOLOGY METHOD 05/23/2024 2:54 AM EDT [facility] RDW 15.3(H) 11.5 - 14.5 % LAB HEMATOLOGY METHOD 05/23/2024 2:54 AM EDT [facility] MPV 9.8 8.8 - 12.5 fL LAB HEMATOLOGY METHOD 05/23/2024 2:54 AM EDT [facility] nRBC 0.6(H) <=0.0 per 100 WBCs LAB HEMATOLOGY METHOD 05/23/2024 2:54 AM EDT [facility] Differential Type Manual LAB HEMATOLOGY METHOD 05/23/2024 2:54 AM EDT [facility] Blood Venous blood specimen / Unknown Venipuncture / Unknown 05/23/2024 1:15 AM EDT 05/23/2024 1:23 AM EDT Narrative [facility] - 05/23/2024 2:54 AM EDT Therapeutic [...] is no longer being reported. Reyna Obregon ADMISSIONS SUPERVISOR LAB BLOOD ORDERABLES Namrata l Result Performing Organization Address [facility] Co de Phone Number [facility] [address] [place] [address] * ECG Adult (05/23/2024 12:57 AM EDT) EKG DIAGNOSIS CLASS Abnormal MUSE ECG Ventricular Rate 108 BPM MUSE ECG Atrial Rate 108 BPM MUSE ECG LA Interval 118 ms MUSE ECG QRSD Interval 96 ms MUSE ECG QT Interval 380 ms MUSE ECG QTC Interval 509 ms MUSE ECG P [place] 83 degrees MUSE ECG R [place] 81 degrees MUSE ECG T Wave [place] 78 degrees MUSE ECG Diagnosis Sinus tachycardia MUSE ECG Diagnosis Low voltage chest leads MUSE ECG Diagnosis Incomplete right bundle branch block MUSE ECG Diagnosis ST & T wave abnormality, consider anterior ischemia MUSE ECG Diagnosis Abnormal ECG MUSE ECG Diagnosis MUSE ECG Diagnosis Confirmed by Graham Singleton ([id number]) on 05/23/2024 7:56:02 AM MUSE ECG 05/23/2024 12:5 7 AM EDT 05/23/2024 7:56 AM EDT Maite Austin MD ECG ORDERABLES Final Result Performing Organization Address [facility] Co de Phone Number MUSE ECG * (ABNORMAL) Renal Function Panel, Plasma (05/22/2024 6:50 PM EDT) Glucose, Plasma 126(H) 74 - 99 mg/dL 05/22/2024 7:40 PM EDT [facility] BUN, Plasma 13 7 - 21 mg/dL 05/22/2024 7:40 PM EDT [facility] Creatinine, Plasma 0.66 0.60 - 1.10 mg/dL 05/22/2024 7:40 PM EDT [facility] BUN/Creatinine Ratio 20 05/22/2024 7:40 PM EDT [facility] Sodium, Plasma 136 136 - 145 mmol/L 05/22/2024 7:40 PM EDT [facility] Potassium, Plasma 3.7 3.6 - 4.9 mmol/L 05/22/2024 7:40 PM EDT [facility] Chloride, Plasma 102 97 - 107 mmol/L 05/22/2024 7:40 PM EDT [facility] CO2, Plasma 26 22 - 29 mmol/L 05/22/2024 7:40 PM EDT [facility] Anion Gap 8 6 - 16 mmol/L 05/22/2024 7:40 PM EDT [facility] Total Calcium, Plasma 7.7(L) 8.9 - 10.2 mg/dL 05/22/2024 7:40 PM EDT [facility] Phosphorus, Plasma 3.6 2.5 - 4.5 mg/dL 05/22/2024 7:40 PM EDT [facility] Albumin, Plasma 2.0(L) 3.5 - 5.2 g/dL 05/22/2024 7:40 PM EDT [facility] eGFRcr 104.4 mL/min/1.7 3m*2 05/22/2024 7:40 PM EDT [facility] Comment:Reported eGFRcr in m L/min/1.73m2 is based the CKD-EPI 2020 equation that does not use a race coefficient. Blood Venous blood specimen / Unknown Venipuncture / Unknown 05/22/2024 6:50 PM EDT 05/22/2024 7:08 PM EDT us Reyna Obregon ADMISSIONS SUPERVISOR LAB BLOOD ORDERABLES Namrata l Result [facility] [address] [place] [address] * Magnesium (05/22/2024 6:50 PM EDT) Magnesium, Plasma 2.0 1.9 - 2.4 mg/dL 05/22/2024 7:40 PM EDT [facility] Blood Venous blood specimen / Unknown Venipuncture / Unknown 05/22/2024 6:50 PM EDT 05/22/2024 7:08 PM EDT Reyna Obregon ADMISSIONS SUPERVISOR LAB BLOOD ORDERABLES Namrata l Result [facility] [address] [place] [address] * (ABNORMAL) Ionized calcium, whole blood (05/22/2024 6:50 PM EDT) Ionized Calcium, Whole Blood 4.2(L) 4.6 - 5.1 mg/dL LAB HEMATOLOGY METHOD 05/22/2024 7:10 PM EDT [facility] Blood Venous blood specimen / Unknown Venipuncture / Unknown 05/22/2024 6:50 PM EDT 05/22/2024 7:06 PM EDT Reyna Obregon ADMISSIONS SUPERVISOR LAB BLOOD ORDERABLES Namrata l Result Performing Organization Address [facility] Co de Phone Number [facility] [address] [place] [address] * CT Abdomen Pelvis wo IV Contrast [...] Lopez MD on 05/22/2024 6:08 PM Reyna A Sabas ADMISSIONS SUPERVISOR IMG CT PROCEDURES Final R esult * (ABNORMAL) Renal Function Panel, Plasma (05/22/2024 11:32 AM EDT) Glucose, Plasma 143(H) 74 - 99 mg/dL 05/22/2024 12:15 PM EDT [facility] BUN, Plasma 13 7 - 21 mg/dL 05/22/2024 12:15 PM EDT [facility] Creatinine, Plasma 0.62 0.60 - 1.10 mg/dL 05/22/2024 12:15 PM EDT [facility] BUN/Creatinine Ratio 21 05/22/2024 12:15 PM EDT [facility] Sodium, Plasma 138 136 - 145 mmol/L 05/22/2024 12:15 PM EDT [facility] Potassium, Plasma 3.9 3.6 - 4.9 mmol/L 05/22/2024 12:15 PM EDT [facility] Chloride, Plasma 104 97 - 107 mmol/L 05/22/2024 12:15 PM EDT [facility] CO2, Plasma 25 22 - 29 mmol/L 05/22/2024 12:15 PM EDT [facility] Anion Gap 9 6 - 16 mmol/L 05/22/2024 12:15 PM EDT [facility] Total Calcium, Plasma 7.9(L) 8.9 - 10.2 mg/dL 05/22/2024 12:15 PM EDT [facility] Phosphorus, Plasma 3.5 2.5 - 4.5 mg/dL 05/22/2024 12:15 PM EDT [facility] Albumin, Plasma 2.1(L) 3.5 - 5.2 g/dL 05/22/2024 12:15 PM EDT [facility] eGFRcr 106.0 mL/min/1.7 3m*2 05/22/2024 12:15 PM EDT [facility] Comment:Reported eGFRcr in m L/min/1.73m2 is based the CKD-EPI 2020 equation that does not use a race coefficient. Blood Venous blood specimen / Unknown Venipuncture / Unknown 05/22/2024 11:32 AM EDT 05/22/2024 11:43 AM EDT us Maite Austin MD LAB BLOOD ORDERABLES Final Resu lt Performing Organization Address [facility] Co de Phone Number [facility] [address] [place] [address] * Magnesium (05/22/2024 11:32 AM EDT) Magnesium, Plasma 2.0 1.9 - 2.4 mg/dL 05/22/2024 12:15 PM EDT [facility] Blood Venous blood specimen / Unknown Venipuncture / Unknown 05/22/2024 11:32 AM EDT 05/22/2024 11:43 AM EDT Maite Austin MD LAB BLOOD ORDERABLES Final Resu lt Performing Organization Address [facility] [place] [address] * (ABNORMAL) Ionized calcium, whole blood (05/22/2024 11:32 AM EDT) Ionized Calcium, Whole Blood 4.4(L) 4.6 - 5.1 mg/dL LAB HEMATOLOGY METHOD 05/22/2024 11:45 AM EDT [facility] Blood Venous blood specimen / Unknown Venipuncture / Unknown 05/22/2024 11:32 AM EDT 05/22/2024 11:44 AM EDT us Maite Austin MD LAB BLOOD ORDERABLES Final Resu lt Performing Organization Address City/[facility] Co de Phone Number [facility] [address] [place] [address] * Type and Screen (05/22/2024 6:18 AM EDT) ABO/Rh B Positive 05/22/2024 6:18 AM EDT [facility] Antibody Screen Negative 05/22/2024 6:18 AM EDT [facility] Specimen Expiration 05/25/2024 23:59 05/22/2024 6:18 AM EDT [facility] Blood Venous blood specimen / Unknown Venipuncture / Unknown 05/22/2024 6:18 AM EDT 05/22/2024 6:25 AM EDT us Maite Austin MD LAB BLOOD BANK TEST ORDERABLES Final Result Performing Organization Address [facility]/ZIP Co de Phone Number BLOOD BANK [address] [place] [address], * (ABNORMAL) Morphology (05/22/2024 6:13 AM EDT) RBC Fragments/Schist ocytes Slight(A) (none) LAB HEMATOLOGY METHOD 05/22/2024 8:34 AM EDT [facility] Polychromasia Moderate LAB HEMATOLOGY METHOD 05/22/2024 8:34 AM EDT [facility] Echinocytes Present LAB HEMATOLOGY METHOD 05/22/2024 8:34 AM EDT [facility] RBC Morphology Slide Reviewed LAB HEMATOLOGY METHOD 05/22/2024 8:34 AM EDT [facility] Platelet Estimate Platelet smear estimate consistent with automated count LAB HEMATOLOGY METHOD 05/22/2024 8:34 AM EDT [facility] Blood Venous blood specimen / Unknown Venipuncture / Unknown 05/22/2024 6:13 AM EDT 05/22/2024 6:20 AM EDT us Maite Austin MD LAB BLOOD ORDERABLES Final Resu lt [facility] [address] [place] [address] * (ABNORMAL) Manual Differential (05/22/2024 6:13 AM EDT) Blasts % 0 % LAB HEMATOLOGY METHOD 05/22/2024 8:34 AM EDT [facility] Promyelocytes % 0 % LAB HEMATOLOGY METHOD 05/22/2024 8:34 AM EDT [facility] Myelocytes % 2 % LAB HEMATOLOGY METHOD 05/22/2024 8:34 AM EDT [facility] Metamyelocytes % 3 % LAB HEMATOLOGY METHOD 05/22/2024 8:34 AM EDT [facility] Neutrophils % 69 % LAB HEMATOLOGY METHOD 05/22/2024 8:34 AM EDT [facility] Lymphocytes % 13 % LAB HEMATOLOGY METHOD 05/22/2024 8:34 AM EDT [facility] Reactive Lymphocytes % 1 % LAB HEMATOLOGY METHOD 05/22/2024 8:34 AM EDT [facility] Monocytes % 9 % LAB HEMATOLOGY METHOD 05/22/2024 8:34 AM EDT [facility] Eosinophils % 2 % LAB HEMATOLOGY METHOD 05/22/2024 8:34 AM EDT [facility] Basophils % 1 % LAB HEMATOLOGY METHOD 05/22/2024 8:34 AM EDT [facility] Blasts Absolute 0.00 10*3/UL LAB HEMATOLOGY METHOD 05/22/2024 8:34 AM EDT [facility] Promyelocytes Absolute 0.00 10*3/uL LAB HEMATOLOGY METHOD 05/22/2024 8:34 AM EDT [facility] Myelocytes Absolute 0.23 10*3/uL LAB HEMATOLOGY METHOD 05/22/2024 8:34 AM EDT [facility] Metamyelocytes Absolute 0.35 10*3/uL LAB HEMATOLOGY METHOD 05/22/2024 8:34 AM EDT [facility] Neutrophils Absolute 7.98(H) 1.60 - 6.10 10*3/uL LAB HEMATOLOGY METHOD 05/22/2024 8:34 AM EDT [facility] Lymphocytes Absolute 1.50 1.20 - 3.90 10*3/uL LAB HEMATOLOGY METHOD 05/22/2024 8:34 AM EDT [facility] Reactive Lymphocytes Absolute 0.12 10*3/uL LAB HEMATOLOGY METHOD 05/22/2024 8:34 AM EDT [facility] Monocytes Absolute 1.04(H) 0.30 - 0.90 10*3/uL LAB HEMATOLOGY METHOD 05/22/2024 8:34 AM EDT [facility] Eosinophils Absolute 0.23 0.00 - 0.50 10*3/uL LAB HEMATOLOGY METHOD 05/22/2024 8:34 AM EDT [facility] Basophils Absolute 0.12(H) 0.00 - 0.10 10*3/uL LAB HEMATOLOGY METHOD 05/22/2024 8:34 AM EDT [facility] Blood Venous blood specimen / Unknown Venipuncture / Unknown 05/22/2024 6:13 AM EDT 05/22/2024 6:20 AM EDT us Maite Austin MD LAB BLOOD ORDERABLES Final Resu lt [facility] [address] [place] [address] * (ABNORMAL) Comprehensive metabolic panel (05/22/2024 6:13 AM EDT) Glucose, Plasma 115(H) 74 - 99 mg/dL 05/22/2024 7:01 AM EDT [facility] BUN, Plasma 12 7 - 21 mg/dL 05/22/2024 7:01 AM EDT [facility] Creatinine, Plasma 0.61 0.60 - 1.10 mg/dL 05/22/2024 7:01 AM EDT [facility] BUN/Creatinine Ratio 20 05/22/2024 7:01 AM EDT [facility] Sodium, Plasma 139 136 - 145 mmol/L 05/22/2024 7:01 AM EDT [facility] Potassium, Plasma 3.6 3.6 - 4.9 mmol/L 05/22/2024 7:01 AM EDT [facility] Chloride, Plasma 107 97 - 107 mmol/L 05/22/2024 7:01 AM EDT [facility] CO2, Plasma 24 22 - 29 mmol/L 05/22/2024 7:01 AM EDT [facility] Anion Gap 8 6 - 16 mmol/L 05/22/2024 7:01 AM EDT [facility] Total Calcium, Plasma 7.0(L) 8.9 - 10.2 mg/dL 05/22/2024 7:01 AM EDT [facility] Total Protein 5.4(L) 6.3 - 7.9 g/dL 05/22/2024 7:01 AM EDT [facility] Albumin, Plasma 1.8(L) 3.5 - 5.2 g/dL 05/22/2024 7:01 AM EDT [facility] AST, Plasma 31 10 - 35 U/L 05/22/2024 7:01 AM EDT [facility] ALT, Plasma 16 10 - 35 U/L 05/22/2024 7:01 AM EDT [facility] Alkaline Phosphatase, Plasma 112(H) 35 - 104 U/L 05/22/2024 7:01 AM EDT [facility] Total Bilirubin, Plasma 0.7 0.2 - 1.1 mg/dL 05/22/2024 7:01 AM EDT [facility] eGFRcr 106.4 mL/min/1.7 3m*2 05/22/2024 7:01 AM EDT [facility] Comment:Reported eGFRcr in m L/min/1.73m2 is based the CKD-EPI 2020 equation that does not use a race coefficient. Blood Venous blood specimen / Unknown Venipuncture / Unknown 05/22/2024 6:13 AM EDT 05/22/2024 6:20 AM EDT us Maite Austin MD LAB BLOOD ORDERABLES Final Resu lt [facility] [address] [place] [address] * (ABNORMAL) CBC and differential (05/22/2024 6:13 AM EDT) WBC Count 11.56(H) 3.70 - 10.30 10*3/uL LAB HEMATOLOGY METHOD 05/22/2024 8:34 AM EDT [facility] RBC Count 3.18(L) 3.90 - 5.20 10*6/uL LAB HEMATOLOGY METHOD 05/22/2024 8:34 AM EDT [facility] HGB 9.2(L) 11.2 - 15.7 g/dL LAB HEMATOLOGY METHOD 05/22/2024 8:34 AM EDT [facility] HCT 29.4(L) 34.0 - 45.0 % LAB HEMATOLOGY METHOD 05/22/2024 8:34 AM EDT [facility] Platelet Count 523(H) 155 - 369 10*3/uL LAB HEMATOLOGY METHOD 05/22/2024 8:34 AM EDT [facility] MCV 93 79 - 98 fL LAB HEMATOLOGY METHOD 05/22/2024 8:34 AM EDT [facility] MCH 28.9 26.0 - 32.0 pg LAB HEMATOLOGY METHOD 05/22/2024 8:34 AM EDT [facility] MCHC 31.3 30.7 - 35.5 g/dL LAB HEMATOLOGY METHOD 05/22/2024 8:34 AM EDT [facility] RDW 15.3(H) 11.5 - 14.5 % LAB HEMATOLOGY METHOD 05/22/2024 8:34 AM EDT [facility] MPV 9.7 8.8 - 12.5 fL LAB HEMATOLOGY METHOD 05/22/2024 8:34 AM EDT [facility] nRBC 0.4(H) <=0.0 per 100 WBCs LAB HEMATOLOGY METHOD 05/22/2024 8:34 AM EDT [facility] Differential Type Manual LAB HEMATOLOGY METHOD 05/22/2024 8:34 AM EDT [facility] Blood Venous blood specimen / Unknown Venipuncture / Unknown 05/22/2024 6:13 AM EDT 05/22/2024 6:20 AM EDT Narrative [facility] - 05/22/2024 8:34 AM EDT Therapeutic [...] ORDERABLES Final Resu lt Performing Organization Address [facility]/ZIP Co de Phone Number [facility] [address] [place] [address] * (ABNORMAL) Ionized calcium, whole blood (05/22/2024 6:13 AM EDT) Ionized Calcium, Whole Blood 4.0(L) 4.6 - 5.1 mg/dL LAB HEMATOLOGY METHOD 05/22/2024 6:24 AM EDT [facility] Blood Venous blood specimen / Unknown Venipuncture / Unknown 05/22/2024 6:13 AM EDT 05/22/2024 6:22 AM EDT us Maite Austin MD LAB BLOOD ORDERABLES Final Resu lt Performing Organization Address [facility] Co de Phone Number [facility] [address] [place] [address] * (ABNORMAL) Morphology (05/22/2024 5:18 AM EDT) RBC Fragments/Schist ocytes Slight(A) (none) LAB HEMATOLOGY METHOD 05/22/2024 7:05 AM EDT [facility] Polychromasia Slight LAB HEMATOLOGY METHOD 05/22/2024 7:05 AM EDT [facility] Echinocytes Present LAB HEMATOLOGY METHOD 05/22/2024 7:05 AM EDT [facility] RBC Morphology Slide Reviewed LAB HEMATOLOGY METHOD 05/22/2024 7:05 AM EDT [facility] Platelet Estimate Platelet smear estimate consistent with automated count LAB HEMATOLOGY METHOD 05/22/2024 7:05 AM EDT [facility] Blood Venous blood specimen / Unknown Venipuncture / Unknown 05/22/2024 5:18 AM EDT 05/22/2024 5:25 AM EDT Reyna Obregon APRN LAB BLOOD ORDERABLES Namrata l Result Performing Organization Address [facility]/ZIP Co de Phone Number [facility] [address] [place] [address] * (ABNORMAL) Manual Differential (05/22/2024 5:18 AM EDT) Blasts % 0 % LAB HEMATOLOGY METHOD 05/22/2024 7:05 AM EDT [facility] Promyelocytes % 0 % LAB HEMATOLOGY METHOD 05/22/2024 7:05 AM EDT [facility] Myelocytes % 2 % LAB HEMATOLOGY METHOD 05/22/2024 7:05 AM EDT [facility] Metamyelocytes % 4 % LAB HEMATOLOGY METHOD 05/22/2024 7:05 AM EDT [facility] Neutrophils % 64 % LAB HEMATOLOGY METHOD 05/22/2024 7:05 AM EDT [facility] Lymphocytes % 17 % LAB HEMATOLOGY METHOD 05/22/2024 7:05 AM EDT [facility] Reactive Lymphocytes % 2 % LAB HEMATOLOGY METHOD 05/22/2024 7:05 AM EDT [facility] Monocytes % 6 % LAB HEMATOLOGY METHOD 05/22/2024 7:05 AM EDT [facility] Eosinophils % 5 % LAB HEMATOLOGY METHOD 05/22/2024 7:05 AM EDT [facility] Basophils % 0 % LAB HEMATOLOGY METHOD 05/22/2024 7:05 AM EDT [facility] Blasts Absolute 0.00 10*3/UL LAB HEMATOLOGY METHOD 05/22/2024 7:05 AM EDT [facility] Promyelocytes Absolute 0.00 10*3/uL LAB HEMATOLOGY METHOD 05/22/2024 7:05 AM EDT [facility] Myelocytes Absolute 0.20 10*3/uL LAB HEMATOLOGY METHOD 05/22/2024 7:05 AM EDT [facility] Metamyelocytes Absolute 0.40 10*3/uL LAB HEMATOLOGY METHOD 05/22/2024 7:05 AM EDT [facility] Neutrophils Absolute 6.39(H) 1.60 - 6.10 10*3/uL LAB HEMATOLOGY METHOD 05/22/2024 7:05 AM EDT [facility] Lymphocytes Absolute 1.70 1.20 - 3.90 10*3/uL LAB HEMATOLOGY METHOD 05/22/2024 7:05 AM EDT [facility] Reactive Lymphocytes Absolute 0.20 10*3/uL LAB HEMATOLOGY METHOD 05/22/2024 7:05 AM EDT [facility] Monocytes Absolute 0.60 0.30 - 0.90 10*3/uL LAB HEMATOLOGY METHOD 05/22/2024 7:05 AM EDT [facility] Eosinophils Absolute 0.50 0.00 - 0.50 10*3/uL LAB HEMATOLOGY METHOD 05/22/2024 7:05 AM EDT [facility] Basophils Absolute 0.00 0.00 - 0.10 10*3/uL LAB HEMATOLOGY METHOD 05/22/2024 7:05 AM EDT [facility] Blood Venous blood specimen / Unknown Venipuncture / Unknown 05/22/2024 5:18 AM EDT 05/22/2024 5:25 AM EDT us Reyna Obregon APRN LAB BLOOD ORDERABLES Namrata otto Result Performing Organization Address City/[facility]/ZIP Co de Phone Number [facility] [address] [place] [address] * (ABNORMAL) Ionized calcium, whole blood (05/22/2024 5:18 AM EDT) Ionized Calcium, Whole Blood 3.4(L) 4.6 - 5.1 mg/dL LAB HEMATOLOGY METHOD 05/22/2024 5:27 AM EDT [facility] Blood Venous blood specimen / Unknown Venipuncture / Unknown 05/22/2024 5:18 AM EDT 05/22/2024 5:26 AM EDT us Maite Austin MD LAB BLOOD ORDERABLES Final Resu lt [facility] [address] [place] [address] * (ABNORMAL) CBC and Differential (05/22/2024 5:18 AM EDT) WBC Count 9.98 3.70 - 10.30 10*3/uL LAB HEMATOLOGY METHOD 05/22/2024 7:05 AM EDT [facility] RBC Count 2.58(L) 3.90 - 5.20 10*6/uL LAB HEMATOLOGY METHOD 05/22/2024 7:05 AM EDT [facility] HGB 7.6(L) 11.2 - 15.7 g/dL LAB HEMATOLOGY METHOD 05/22/2024 7:05 AM EDT [facility] HCT 23.8(L) 34.0 - 45.0 % LAB HEMATOLOGY METHOD 05/22/2024 7:05 AM EDT [facility] Platelet Count 431(H) 155 - 369 10*3/uL LAB HEMATOLOGY METHOD 05/22/2024 7:05 AM EDT [facility] MCV 92 79 - 98 fL LAB HEMATOLOGY METHOD 05/22/2024 7:05 AM EDT [facility] MCH 29.5 26.0 - 32.0 pg LAB HEMATOLOGY METHOD 05/22/2024 7:05 AM EDT [facility] MCHC 31.9 30.7 - 35.5 g/dL LAB HEMATOLOGY METHOD 05/22/2024 7:05 AM EDT [facility] RDW 15.5(H) 11.5 - 14.5 % LAB HEMATOLOGY METHOD 05/22/2024 7:05 AM EDT [facility] MPV 9.4 8.8 - 12.5 fL LAB HEMATOLOGY METHOD 05/22/2024 7:05 AM EDT [facility] nRBC 0.4(H) <=0.0 per 100 WBCs LAB HEMATOLOGY METHOD 05/22/2024 7:05 AM T [facility] Differential Type Manual LAB HEMATOLOGY METHOD 05/22/2024 7:05 AM EDT [facility] Blood Venous blood specimen / Unknown Venipuncture / Unknown 05/22/2024 5:18 AM EDT 05/22/2024 5:25 AM EDT Narrative [facility] - 05/22/2024 7:05 AM EDT Therapeutic [...] no longer being reported. us Reyna Obregon ADMISSIONS SUPERVISOR LAB BLOOD ORDERABLES Namrata otto Result [facility] [address] [place] [address] * XR Chest 1 View (05/22/2024 3:44 [...] - 99 mg/dL 05/22/2024 12:41 AM EDT [facility] BUN, Plasma 11 7 - 21 mg/dL 05/22/2024 12:41 AM EDT [facility] Creatinine, Plasma 0.62 0.60 - 1.10 mg/dL 05/22/2024 12:41 AM EDT [facility] BUN/Creatinine Ratio 18 05/22/2024 12:41 AM EDT [facility] Sodium, Plasma 139 136 - 145 mmol/L 05/22/2024 12:41 AM EDT [facility] Potassium, Plasma 4.2 3.6 - 4.9 mmol/L 05/22/2024 12:41 AM EDT [facility] Chloride, Plasma 110(H) 97 - 107 mmol/L 05/22/2024 12:41 AM EDT [facility] CO2, Plasma 22 22 - 29 mmol/L 05/22/2024 12:41 AM EDT [facility] Anion Gap 7 6 - 16 mmol/L 05/22/2024 12:41 AM EDT [facility] Total Calcium, Plasma 7.5(L) 8.9 - 10.2 mg/dL 05/22/2024 12:41 AM EDT [facility] Phosphorus, Plasma 3.1 2.5 - 4.5 mg/dL 05/22/2024 12:41 AM EDT [facility] Albumin, Plasma 1.8(L) 3.5 - 5.2 g/dL 05/22/2024 12:41 AM EDT [facility] eGFRcr 106.0 mL/min/1.7 3m*2 05/22/2024 12:41 AM EDT [facility] Comment:Reported eGFRcr in m L/min/1.73m2 is based the CKD-EPI 2020 equation that does not use a race coefficient. Blood Venous blood specimen / Unknown Venipuncture / Unknown 05/22/2024 12:01 AM EDT 05/22/2024 12:10 AM EDT Maite Austin MD LAB BLOOD ORDERABLES Final Resu lt Performing Organization Address [facility] Co de Phone Number [facility] [address] [place] [address] * Magnesium (05/22/2024 12:01 AM EDT) Magnesium, Plasma 1.9 1.9 - 2.4 mg/dL 05/22/2024 12:41 AM EDT [facility] Blood Venous blood specimen / Unknown Venipuncture / Unknown 05/22/2024 12:01 AM EDT 05/22/2024 12:10 AM EDT Maite Austin MD LAB BLOOD ORDERABLES Final Resu lt Performing Organization Address [facility] de Phone Number [facility] [address] [place] [address] * (ABNORMAL) Ionized calcium, whole blood (05/22/2024 12:01 AM EDT) Ionized Calcium, Whole Blood 4.3(L) 4.6 - 5.1 mg/dL LAB HEMATOLOGY METHOD 05/22/2024 12:13 AM EDT [facility] Blood Venous blood specimen / Unknown Venipuncture / Unknown 05/22/2024 12:01 AM EDT 05/22/2024 12:10 AM EDT Maite Austin MD LAB BLOOD ORDERABLES Final Resu lt Performing Organization Address [facility] de Phone Number [facility] [address] [place] [address] * (ABNORMAL) Renal Function Panel, Plasma (05/21/2024 6:00 PM EDT) Glucose, Plasma 121(H) 74 - 99 mg/dL 05/21/2024 7:17 PM EDT [facility] BUN, Plasma 11 7 - 21 mg/dL 05/21/2024 7:17 PM EDT [facility] Creatinine, Plasma 0.58(L) 0.60 - 1.10 mg/dL 05/21/2024 7:17 PM EDT [facility] BUN/Creatinine Ratio 19 05/21/2024 7:17 PM EDT [facility] Sodium, Plasma 139 136 - 145 mmol/L 05/21/2024 7:17 PM EDT [facility] Potassium, Plasma 4.7 3.6 - 4.9 mmol/L 05/21/2024 7:17 PM EDT [facility] Chloride, Plasma 109(H) 97 - 107 mmol/L 05/21/2024 7:17 PM EDT [facility] CO2, Plasma 23 22 - 29 mmol/L 05/21/2024 7:17 PM EDT [facility] Anion Gap 7 6 - 16 mmol/L 05/21/2024 7:17 PM EDT [facility] Total Calcium, Plasma 7.7(L) 8.9 - 10.2 mg/dL 05/21/2024 7:17 PM EDT [facility] Phosphorus, Plasma 4.1 2.5 - 4.5 mg/dL 05/21/2024 7:17 PM EDT [facility] Albumin, Plasma 1.9(L) 3.5 - 5.2 g/dL 05/21/2024 7:17 PM EDT [facility] eGFRcr 107.7 mL/min/1.7 3m*2 05/21/2024 7:17 PM EDT [facility] Comment:Reported eGFRcr in m L/min/1.73m2 is based the CKD-EPI 2020 equation that does not use a race coefficient. Blood Venous blood specimen / Unknown Venipuncture / Unknown 05/21/2024 6:00 PM EDT 05/21/2024 6:24 PM EDT us Reyna Obregon ADMISSIONS SUPERVISOR LAB BLOOD ORDERABLES Namrata l Result [facility] [address] [place] [address] * Magnesium (05/21/2024 6:00 PM EDT) Magnesium, Plasma 2.1 1.9 - 2.4 mg/dL 05/21/2024 7:17 PM EDT [facility] Blood Venous blood specimen / Unknown Venipuncture / Unknown 05/21/2024 6:00 PM EDT 05/21/2024 6:24 PM EDT Reyna Lois Obregon ADMISSIONS SUPERVISOR LAB BLOOD ORDERABLES Namrata l Result [facility] [address] [place] [address] * (ABNORMAL) Ionized calcium, whole blood (05/21/2024 6:00 PM EDT) Pathologist [facility] Ionized Calcium, Whole Blood 4.5(L) 4.6 - 5.1 mg/dL LAB HEMATOLOGY METHOD 05/21/2024 6:09 PM EDT [facility] Blood Venous blood specimen / Unknown Venipuncture / Unknown 05/21/2024 6:00 PM EDT 05/21/2024 6:08 PM EDT Reyna Obregon ADMISSIONS SUPERVISOR LAB BLOOD ORDERABLES Namrata l Result [facility] [address] [place] [address] * (ABNORMAL) Renal Function Panel, Plasma (05/21/2024 12:09 PM EDT) Glucose, Plasma 139(H) 74 - 99 mg/dL 05/21/2024 1:09 PM EDT [facility] BUN, Plasma 13 7 - 21 mg/dL 05/21/2024 1:09 PM EDT [facility] Creatinine, Plasma 0.62 0.60 - 1.10 mg/dL 05/21/2024 1:09 PM EDT [facility] BUN/Creatinine Ratio 21 05/21/2024 1:09 PM EDT [facility] Sodium, Plasma 139 136 - 145 mmol/L 05/21/2024 1:09 PM EDT [facility] Potassium, Plasma 4.3 3.6 - 4.9 mmol/L 05/21/2024 1:09 PM EDT [facility] Chloride, Plasma 111(H) 97 - 107 mmol/L 05/21/2024 1:09 PM EDT [facility] CO2, Plasma 21(L) 22 - 29 mmol/L 05/21/2024 1:09 PM EDT [facility] Anion Gap 7 6 - 16 mmol/L 05/21/2024 1:09 PM EDT [facility] Total Calcium, Plasma 7.5(L) 8.9 - 10.2 mg/dL 05/21/2024 1:09 PM EDT [facility] Phosphorus, Plasma 2.9 2.5 - 4.5 mg/dL 05/21/2024 1:09 PM EDT [facility] Albumin, Plasma 1.9(L) 3.5 - 5.2 g/dL 05/21/2024 1:09 PM EDT [facility] eGFRcr 106.0 mL/min/1.7 3m*2 05/21/2024 1:09 PM EDT [facility] Comment:Reported eGFRcr in m L/min/1.73m2 is based the CKD-EPI 2020 equation that does not use a race coefficient. Blood Arterial blood specimen / Unknown Venipuncture / Unknown 05/21/2024 12:09 PM EDT 05/21/2024 12:20 PM EDT us Reyna Obregon ADMISSIONS SUPERVISOR LAB BLOOD ORDERABLES Namrata l Result [facility] [address] [place] [address] * Magnesium (05/21/2024 12:09 PM EDT) Magnesium, Plasma 2.2 1.9 - 2.4 mg/dL 05/21/2024 1:09 PM EDT [facility] Blood Arterial blood specimen / Unknown Venipuncture / Unknown 05/21/2024 12:09 PM EDT 05/21/2024 12:20 PM EDT us Reyna A Sabas ADMISSIONS SUPERVISOR LAB BLOOD ORDERABLES Namrata l Result Performing Organization Address City/[facility]/ZIP Co de Phone Number [facility] [address] [place] [address] * (ABNORMAL) Ionized calcium, whole blood (05/21/2024 12:09 PM EDT) Ionized Calcium, Whole Blood 4.2(L) 4.6 - 5.1 mg/dL LAB HEMATOLOGY METHOD 05/21/2024 12:21 PM EDT [facility] Blood Arterial blood specimen / Unknown Venipuncture / Unknown 05/21/2024 12:09 PM EDT 05/21/2024 12:19 PM EDT us Reyna A Sabas ADMISSIONS SUPERVISOR LAB BLOOD ORDERABLES Namrata l Result Performing Organization Address [facility] Co de Phone Number [facility] [address] [place] [address] * [facility], E/M 30-74 MINUTES (05/21/2024 11:41 [...] POCT glucose meter (05/21/2024 6:01 AM EDT) [facility] POCT Glucose 135(H) 74 - 99 mg/dL [...] Comment 05/21/2024 6:03 AM EDT [facility] J[employer] 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 Cass Corrales 05/21/2024 6:03 AM EDT HEALTHCARE LAB Device ID [id number] 05/21/2024 6:03 AM EDT [facility]ALTHCARE LAB Specimen Type POC Arterial 05/21/2024 6:03 AM EDT [facility] Blood Arterial blood specimen / Unknown 05/21/2024 6:01 AM EDT 05/21/2024 6:03 AM EDT us Maite Austin MD LAB POINT OF CARE TE ST DOCKED DEVICE UNSOLICITED RESULTS Final Result Performing Organization Address City/[facility]/ZIP Co de Phone Number [facility] [address] [place] [address] * (ABNORMAL) Ionized calcium, whole blood (05/21/2024 5:56 AM EDT) [facility] Ionized Calcium, Whole Blood 4.2(L) 4.6 - 5.1 mg/dL LAB HEMATOLOGY METHOD 05/21/2024 6:12 AM EDT [facility] Blood Venous blood specimen / Unknown Venipuncture / Unknown 05/21/2024 5:56 AM EDT 05/21/2024 6:11 AM EDT us Lauren Noguera ADMISSIONS SUPERVISOR, OUTSIDE DELIVERER, DNP LAB BLOOD ORDERABL ES Final Result Performing Organization Address City/[facility]/ZIP Co de Phone Number [facility] [address] [place] [address] * Magnesium (05/21/2024 5:56 AM EDT) Magnesium, Plasma 2.2 1.9 - 2.4 mg/dL 05/21/2024 6:45 AM EDT [facility] Blood Venous blood specimen / Unknown Venipuncture / Unknown 05/21/2024 5:56 AM EDT 05/21/2024 6:12 AM EDT us Lauren Noguera ADMISSIONS SUPERVISOR, OUTSIDE DELIVERER, DNP LAB BLOOD ORDERABL ES Final Result [facility] [address] [place] [address] * (ABNORMAL) Renal Function Panel, Plasma (05/21/2024 5:56 AM EDT) Glucose, Plasma 139(H) 74 - 99 mg/dL 05/21/2024 6:45 AM EDT [facility] BUN, Plasma 13 7 - 21 mg/dL 05/21/2024 6:45 AM EDT [facility] Creatinine, Plasma 0.68 0.60 - 1.10 mg/dL 05/21/2024 6:45 AM EDT [facility] BUN/Creatinine Ratio 19 05/21/2024 6:45 AM EDT [facility] Sodium, Plasma 140 136 - 145 mmol/L 05/21/2024 6:45 AM EDT [facility] Potassium, Plasma 3.7 3.6 - 4.9 mmol/L 05/21/2024 6:45 AM EDT [facility] Chloride, Plasma 108(H) 97 - 107 mmol/L 05/21/2024 6:45 AM EDT [facility] CO2, Plasma 22 22 - 29 mmol/L 05/21/2024 6:45 AM EDT [facility] Anion Gap 10 6 - 16 mmol/L 05/21/2024 6:45 AM EDT [facility] Total Calcium, Plasma 7.3(L) 8.9 - 10.2 mg/dL 05/21/2024 6:45 AM EDT [facility] Phosphorus, Plasma 3.9 2.5 - 4.5 mg/dL 05/21/2024 6:45 AM EDT [facility] Albumin, Plasma 2.0(L) 3.5 - 5.2 g/dL 05/21/2024 6:45 AM EDT [facility] eGFRcr 103.6 mL/min/1.7 3m*2 05/21/2024 6:45 AM EDT [facility] Comment:Reported eGFRcr in m L/min/1.73m2 is based the CKD-EPI 2020 equation that does not use a race coefficient. Blood Venous blood specimen / Unknown Venipuncture / Unknown 05/21/2024 5:56 AM EDT 05/21/2024 6:12 AM EDT us Lauren Noguera ADMISSIONS SUPERVISOR, OUTSIDE DELIVERER, DNP LAB BLOOD ORDERABL ES Final Result [facility] [address] [place] [address] * XR Chest 1 View (05/21/2024 2:21 [...] Champ Oden MD on 05/21/2024 8:42 AM Maite Austin MD IMG XR PROCEDURES Final Result * (ABNORMAL) Ionized calcium, whole blood (05/21/2024 12:09 AM EDT) Pathologist [facility] Ionized Calcium, Whole Blood 4.3(L) 4.6 - 5.1 mg/dL LAB HEMATOLOGY METHOD 05/21/2024 12:16 AM EDT [facility] Blood Venous blood specimen / Unknown Venipuncture / Unknown 05/21/2024 12:09 AM EDT 05/21/2024 12:15 AM EDT Lauren Noguera ADMISSIONS SUPERVISOR, OUTSIDE DELIVERER, DNP LAB BLOOD ORDERABL ES Final Result [facility] [address] [place] [address] * Morphology (05/20/2024 11:48 PM EDT) Polychromasia Slight LAB HEMATOLOGY METHOD 05/21/2024 1:20 AM EDT [facility] RBC Morphology Slide Reviewed LAB HEMATOLOGY METHOD 05/21/2024 1:20 AM EDT [facility] Platelet Estimate Platelet smear estimate consistent with automated count LAB HEMATOLOGY METHOD 05/21/2024 1:20 AM EDT [facility] Blood Venous blood specimen / Unknown Venipuncture / Unknown 05/20/2024 11:48 PM EDT 05/21/2024 12:00 AM EDT Marybel Suarez ADMISSIONS SUPERVISOR LAB BLOOD ORDERABLES Fin al Result [facility] [address] [place] [address] * (ABNORMAL) Manual Differential (05/20/2024 11:48 PM EDT) Blasts % 0 % LAB HEMATOLOGY METHOD 05/21/2024 1:20 AM EDT [facility] Promyelocytes % 0 % LAB HEMATOLOGY METHOD 05/21/2024 1:20 AM EDT [facility] Myelocytes % 4 % LAB HEMATOLOGY METHOD 05/21/2024 1:20 AM EDT [facility] Metamyelocytes % 0 % LAB HEMATOLOGY METHOD 05/21/2024 1:20 AM EDT [facility] Neutrophils % 59 % LAB HEMATOLOGY METHOD 05/21/2024 1:20 AM EDT [facility] Lymphocytes % 20 % LAB HEMATOLOGY METHOD 05/21/2024 1:20 AM EDT [facility] Reactive Lymphocytes % 1 % LAB HEMATOLOGY METHOD 05/21/2024 1:20 AM EDT [facility] Monocytes % 13 % LAB HEMATOLOGY METHOD 05/21/2024 1:20 AM EDT [facility] Eosinophils % 2 % LAB HEMATOLOGY METHOD 05/21/2024 1:20 AM EDT [facility] Basophils % 1 % LAB HEMATOLOGY METHOD 05/21/2024 1:20 AM EDT [facility] Blasts Absolute 0.00 10*3/UL LAB HEMATOLOGY METHOD 05/21/2024 1:20 AM EDT [facility] Promyelocytes Absolute 0.00 10*3/uL LAB HEMATOLOGY METHOD 05/21/2024 1:20 AM EDT [facility] Myelocytes Absolute 0.52 10*3/uL LAB HEMATOLOGY METHOD 05/21/2024 1:20 AM EDT [facility] Metamyelocytes Absolute 0.00 10*3/uL LAB HEMATOLOGY METHOD 05/21/2024 1:20 AM EDT [facility] Neutrophils Absolute 7.60(H) 1.60 - 6.10 10*3/uL LAB HEMATOLOGY METHOD 05/21/2024 1:20 AM EDT [facility] Lymphocytes Absolute 2.58 1.20 - 3.90 10*3/uL LAB HEMATOLOGY METHOD 05/21/2024 1:20 AM EDT [facility] Reactive Lymphocytes Absolute 0.13 10*3/uL LAB HEMATOLOGY METHOD 05/21/2024 1:20 AM EDT [facility] Monocytes Absolute 1.67(H) 0.30 - 0.90 10*3/uL LAB HEMATOLOGY METHOD 05/21/2024 1:20 AM EDT [facility] Eosinophils Absolute 0.26 0.00 - 0.50 10*3/uL LAB HEMATOLOGY METHOD 05/21/2024 1:20 AM EDT [facility] Basophils Absolute 0.13(H) 0.00 - 0.10 10*3/uL LAB HEMATOLOGY METHOD 05/21/2024 1:20 AM EDT [facility] Blood Venous blood specimen / Unknown Venipuncture / Unknown 05/20/2024 11:48 PM EDT 05/21/2024 12:00 AM EDT us Marybel Suarez APRN LAB BLOOD ORDERABLES Fin al Result Performing Organization Address City/[facility]/ZIP Co de Phone Number [facility] [address] [place] [address] * Magnesium (05/20/2024 11:48 PM EDT) Magnesium, Plasma 2.3 1.9 - 2.4 mg/dL 05/21/2024 12:30 AM EDT [facility] Blood Venous blood specimen / Unknown Venipuncture / Unknown 05/20/2024 11:48 PM EDT 05/21/2024 12:00 AM EDT us Lauren Noguera ADMISSIONS SUPERVISOR, OUTSIDE DELIVERER, DNP LAB BLOOD ORDERABL ES Final Result [facility] [address] [place] [address] * (ABNORMAL) Renal Function Panel, Plasma (05/20/2024 11:48 PM EDT) Glucose, Plasma 141(H) 74 - 99 mg/dL 05/21/2024 12:30 AM EDT [facility] BUN, Plasma 12 7 - 21 mg/dL 05/21/2024 12:30 AM EDT [facility] Creatinine, Plasma 0.76 0.60 - 1.10 mg/dL 05/21/2024 12:30 AM EDT [facility] BUN/Creatinine Ratio 16 05/21/2024 12:30 AM EDT [facility] Sodium, Plasma 141 136 - 145 mmol/L 05/21/2024 12:30 AM EDT [facility] Potassium, Plasma 3.5(L) 3.6 - 4.9 mmol/L 05/21/2024 12:30 AM EDT [facility] Chloride, Plasma 110(H) 97 - 107 mmol/L 05/21/2024 12:30 AM EDT [facility] CO2, Plasma 23 22 - 29 mmol/L 05/21/2024 12:30 AM EDT [facility] Anion Gap 8 6 - 16 mmol/L 05/21/2024 12:30 AM EDT [facility] Total Calcium, Plasma 7.4(L) 8.9 - 10.2 mg/dL 05/21/2024 12:30 AM EDT [facility] Phosphorus, Plasma 3.1 2.5 - 4.5 mg/dL 05/21/2024 12:30 AM EDT [facility] Albumin, Plasma 2.0(L) 3.5 - 5.2 g/dL 05/21/2024 12:30 AM EDT [facility] eGFRcr 93.3 mL/min/1.7 3m*2 05/21/2024 12:30 AM EDT [facility] Comment:Reported eGFRcr in m L/min/1.73m2 is based the CKD-EPI 2020 equation that does not use a race coefficient. Blood Venous blood specimen / Unknown Venipuncture / Unknown 05/20/2024 11:48 PM EDT 05/21/2024 12:00 AM EDT us Lauren Noguera ADMISSIONS SUPERVISOR, OUTSIDE DELIVERER, DNP LAB BLOOD ORDERABL ES Final Result [facility] [address] [place] [address] * (ABNORMAL) CBC and Differential (05/20/2024 11:48 PM EDT) WBC Count 12.88(H) 3.70 - 10.30 10*3/uL LAB HEMATOLOGY METHOD 05/21/2024 1:20 AM EDT [facility] RBC Count 3.29(L) 3.90 - 5.20 10*6/uL LAB HEMATOLOGY METHOD 05/21/2024 1:20 AM EDT [facility] HGB 9.6(L) 11.2 - 15.7 g/dL LAB HEMATOLOGY METHOD 05/21/2024 1:20 AM EDT [facility] HCT 29.5(L) 34.0 - 45.0 % LAB HEMATOLOGY METHOD 05/21/2024 1:20 AM EDT [facility] Platelet Count 605(H) 155 - 369 10*3/uL LAB HEMATOLOGY METHOD 05/21/2024 1:20 AM EDT [facility] MCV 90 79 - 98 fL LAB HEMATOLOGY METHOD 05/21/2024 1:20 AM EDT [facility] MCH 29.2 26.0 - 32.0 pg LAB HEMATOLOGY METHOD 05/21/2024 1:20 AM EDT [facility] MCHC 32.5 30.7 - 35.5 g/dL LAB HEMATOLOGY METHOD 05/21/2024 1:20 AM EDT [facility] RDW 15.7(H) 11.5 - 14.5 % LAB HEMATOLOGY METHOD 05/21/2024 1:20 AM EDT [facility] MPV 9.7 8.8 - 12.5 fL LAB HEMATOLOGY METHOD 05/21/2024 1:20 AM EDT [facility] nRBC 0.2(H) <=0.0 per 100 WBCs LAB HEMATOLOGY METHOD 05/21/2024 1:20 AM EDT [facility] Differential Type Manual LAB HEMATOLOGY METHOD 05/21/2024 1:20 AM EDT [facility] Blood Venous blood specimen / Unknown Venipuncture / Unknown 05/20/2024 11:48 PM EDT 05/21/2024 12:00 AM EDT [facility] - 05/21/2024 1:20 AM EDT Therapeutic [...] reported. Marybel Suarez APRN LAB BLOOD ORDERABLES Fin al Result [facility] [address] [place] [address] * (ABNORMAL) Comprehensive metabolic panel (05/20/2024 11:48 PM EDT) Glucose, Plasma 141(H) 74 - 99 mg/dL 05/21/2024 12:30 AM EDT [facility] BUN, Plasma 12 7 - 21 mg/dL 05/21/2024 12:30 AM EDT [facility] Creatinine, Plasma 0.76 0.60 - 1.10 mg/dL 05/21/2024 12:30 AM EDT [facility] BUN/Creatinine Ratio 16 05/21/2024 12:30 AM EDT [facility] Sodium, Plasma 141 136 - 145 mmol/L 05/21/2024 12:30 AM EDT [facility] Potassium, Plasma 3.5(L) 3.6 - 4.9 mmol/L 05/21/2024 12:30 AM EDT [facility] Chloride, Plasma 110(H) 97 - 107 mmol/L 05/21/2024 12:30 AM EDT [facility] CO2, Plasma 23 22 - 29 mmol/L 05/21/2024 12:30 AM EDT [facility] Anion Gap 8 6 - 16 mmol/L 05/21/2024 12:30 AM EDT [facility] Total Calcium, Plasma 7.4(L) 8.9 - 10.2 mg/dL 05/21/2024 12:30 AM EDT [facility] Total Protein 5.7(L) 6.3 - 7.9 g/dL 05/21/2024 12:30 AM EDT [facility] Albumin, Plasma 2.0(L) 3.5 - 5.2 g/dL 05/21/2024 12:30 AM EDT [facility] AST, Plasma 39(H) 10 - 35 U/L 05/21/2024 12:30 AM EDT [facility] ALT, Plasma 22 10 - 35 U/L 05/21/2024 12:30 AM EDT [facility] Alkaline Phosphatase, Plasma 120(H) 35 - 104 U/L 05/21/2024 12:30 AM EDT [facility] Total Bilirubin, Plasma 0.7 0.2 - 1.1 mg/dL 05/21/2024 12:30 AM EDT [facility] eGFRcr 93.3 mL/min/1.7 3m*2 05/21/2024 12:30 AM EDT [facility] Comment:Reported eGFRcr in m L/min/1.73m2 is based the CKD-EPI 2020 equation that does not use a race coefficient. Blood Venous blood specimen / Unknown Venipuncture / Unknown 05/20/2024 11:48 PM EDT 05/21/2024 12:00 AM EDT Marybel Suarez APRN LAB BLOOD ORDERABLES Fin al Result [facility] [address] [place] [address] * (ABNORMAL) POCT glucose meter (05/20/2024 11:47 PM EDT) POCT Glucose 139(H) 74 - 99 mg/dL 05/20/2024 11:57 PM EDT [facility] Comment:Accuracy of a glucos [...] 05/20/2024 11:57 PM EDT [facility] J[employer] 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 Cass Corrales 05/20/2024 11:57 PM EDT [facility] Device ID [id number] 05/20/2024 11:57 PM EDT [facility] Specimen Type POC Arterial 05/20/2024 11:57 PM EDT [facility] Blood Arterial blood specimen / Unknown 05/20/2024 11:47 PM EDT 05/20/2024 11:57 PM EDT Maite Austin MD LAB POINT OF CARE TE ST DOCKED DEVICE UNSOLICITED RESULTS Final Result Performing Organization Address City/State/[facility] Co de Phone Number [facility] [address] [place] [address] * (ABNORMAL) POCT glucose meter (05/20/2024 6:35 PM EDT) [facility] POCT Glucose 124(H) 74 - 99 mg/dL [...] 05/20/2024 6:37 PM EDT [facility] J[employer] 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 Dina Casiano 05/20/2024 6:37 PM EDT [facility] Device ID [id number] 05/20/2024 6:37 PM EDT [facility] Specimen Type POC Arterial 05/20/2024 6:37 PM EDT [facility] Blood Arterial blood specimen / Unknown 05/20/2024 6:35 PM EDT 05/20/2024 6:37 PM EDT Maite Austin MD LAB POINT OF CARE TE ST DOCKED DEVICE UNSOLICITED RESULTS Final Result [facility] [address] [place] [address] * Magnesium (05/20/2024 6:35 PM EDT) Magnesium, Plasma 2.2 1.9 - 2.4 mg/dL 05/20/2024 7:22 PM EDT [facility] Blood Venous blood specimen / Unknown Venipuncture / Unknown 05/20/2024 6:35 PM EDT 05/20/2024 6:49 PM EDT us Maite Austin MD LAB BLOOD ORDERABLES Final Resu lt Performing Organization Address City/[facility]/ZIP Co de Phone Number [facility] [address] [place] [address] * (ABNORMAL) Renal function panel (05/20/2024 6:35 PM EDT) Glucose, Plasma 135(H) 74 - 99 mg/dL 05/20/2024 7:22 PM EDT [facility] BUN, Plasma 12 7 - 21 mg/dL 05/20/2024 7:22 PM EDT [facility] Creatinine, Plasma 0.78 0.60 - 1.10 mg/dL 05/20/2024 7:22 PM EDT [facility] BUN/Creatinine Ratio 15 05/20/2024 7:22 PM EDT [facility] Sodium, Plasma 139 136 - 145 mmol/L 05/20/2024 7:22 PM EDT [facility] Potassium, Plasma 3.3(L) 3.6 - 4.9 mmol/L 05/20/2024 7:22 PM EDT [facility] Chloride, Plasma 107 97 - 107 mmol/L 05/20/2024 7:22 PM EDT [facility] CO2, Plasma 21(L) 22 - 29 mmol/L 05/20/2024 7:22 PM EDT [facility] Anion Gap 11 6 - 16 mmol/L 05/20/2024 7:22 PM EDT [facility] Total Calcium, Plasma 7.5(L) 8.9 - 10.2 mg/dL 05/20/2024 7:22 PM EDT [facility] Phosphorus, Plasma 2.1(L) 2.5 - 4.5 mg/dL 05/20/2024 7:22 PM EDT [facility] Albumin, Plasma 2.2(L) 3.5 - 5.2 g/dL 05/20/2024 7:22 PM EDT [facility] eGFRcr 90.4 mL/min/1.7 3m*2 05/20/2024 7:22 PM EDT [facility] Comment:Reported eGFRcr in m L/min/1.73m2 is based the CKD-EPI 2020 equation that does not use a race coefficient. Blood Venous blood specimen / Unknown Venipuncture / Unknown 05/20/2024 6:35 PM EDT 05/20/2024 6:49 PM EDT us Maite Austin MD LAB BLOOD ORDERABLES Final Resu lt [facility] [address] [place] [address] * [facility], E/M 30-74 MINUTES (05/20/2024 1:19 [...] Comment 05/20/2024 12:40 PM EDT [facility] J[employer] 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 Dina Casiano 05/20/2024 12:40 PM EDT [facility] LAB Device ID [id number] 05/20/2024 12:40 PM EDT [facility] Specimen Type POC Arterial 05/20/2024 12:40 PM EDT [facility] Blood Arterial blood specimen / Unknown 05/20/2024 12:39 PM EDT 05/20/2024 12:40 PM EDT us Maite Austin MD LAB POINT OF CARE TE ST DOCKED DEVICE UNSOLICITED RESULTS Final Result Performing Organization Address City/State/[facility] Co de Phone Number [facility] [address] [place] [address] * CT Abdomen Pelvis wo IV Contrast [...] Khari Bray MD on 05/20/2024 3:52 PM Maite Austin MD IMG CT PROCEDURES Final Result * (ABNORMAL) Blood gas panel, arterial (05/20/2024 2:16 AM EDT) pH, Arterial 7.41 7.35 - 7.45 LAB HEMATOLOGY METHOD 05/20/2024 2:25 AM EDT [facility] pCO2, Arterial 36 35 - 48 mmHg LAB HEMATOLOGY METHOD 05/20/2024 2:25 AM EDT [facility] pO2, Arterial 102 83 - 108 mmHg LAB HEMATOLOGY METHOD 05/20/2024 2:25 AM EDT [facility] SO2, Measured, Arterial 97 94 - 98 % LAB HEMATOLOGY METHOD 05/20/2024 2:25 AM EDT [facility] Base Excess, Arterial -1.7 -2.0 - 3.0 mmol/L LAB HEMATOLOGY METHOD 05/20/2024 2:25 AM EDT [facility] Bicarbonate, Calculated, Arterial 23 22 - 26 mmol/L LAB HEMATOLOGY METHOD 05/20/2024 2:25 AM EDT [facility] Hematocrit, Whole Blood 27.0(L) 34.0 - 45.0 % LAB HEMATOLOGY METHOD 05/20/2024 2:25 AM EDT [facility] Sodium, Whole Blood 141 136 - 145 mmol/L LAB HEMATOLOGY METHOD 05/20/2024 2:25 AM EDT [facility] Potassium, Whole Blood 3.6 3.6 - 4.9 mmol/L LAB HEMATOLOGY METHOD 05/20/2024 2:25 AM EDT [facility] Chloride, Whole Blood 112(H) 97 - 107 mmol/L LAB HEMATOLOGY METHOD 05/20/2024 2:25 AM EDT [facility] Glucose, Whole Blood 120(H) 74 - 99 mg/dL LAB HEMATOLOGY METHOD 05/20/2024 2:25 AM EDT [facility] Ionized Calcium, Whole Blood 4.1(L) 4.6 - 5.1 mg/dL LAB HEMATOLOGY METHOD 05/20/2024 2:25 AM EDT [facility] Lactate, Arterial, Whole Blood 1.0 0.5 - 1.6 mmol/L LAB HEMATOLOGY METHOD 05/20/2024 2:25 AM EDT [facility] Blood Arterial blood specimen / Unknown Arterial Puncture / Unknown 05/20/2024 2:16 AM EDT 05/20/2024 2:23 AM EDT us Marybel Suarez APRN LAB BLOOD ORDERABLES Fin al Result [facility] [address] [place] [address] * Phosphorus (05/20/2024 2:15 AM EDT) Phosphorus, Plasma 3.2 2.5 - 4.5 mg/dL 05/20/2024 1:41 PM EDT [facility] Blood Venous blood specimen / Unknown Venipuncture / Unknown 05/20/2024 2:15 AM EDT 05/20/2024 2:21 AM EDT us Miate Austin MD LAB BLOOD ORDERABLES Final Resu lt [facility] [address] [place] [address] * (ABNORMAL) CBC and Differential (05/20/2024 2:15 AM EDT) WBC Count 12.37(H) 3.70 - 10.30 10*3/uL LAB HEMATOLOGY METHOD 05/20/2024 3:19 AM EDT [facility] RBC Count 3.13(L) 3.90 - 5.20 10*6/uL LAB HEMATOLOGY METHOD 05/20/2024 3:19 AM EDT [facility] HGB 9.1(L) 11.2 - 15.7 g/dL LAB HEMATOLOGY METHOD 05/20/2024 3:19 AM EDT [facility] HCT 28.3(L) 34.0 - 45.0 % LAB HEMATOLOGY METHOD 05/20/2024 3:19 AM EDT [facility] Platelet Count 632(H) 155 - 369 10*3/uL LAB HEMATOLOGY METHOD 05/20/2024 3:19 AM EDT [facility] MCV 90 79 - 98 fL LAB HEMATOLOGY METHOD 05/20/2024 3:19 AM EDT [facility] MCH 29.1 26.0 - 32.0 pg LAB HEMATOLOGY METHOD 05/20/2024 3:19 AM EDT [facility] MCHC 32.2 30.7 - 35.5 g/dL LAB HEMATOLOGY METHOD 05/20/2024 3:19 AM EDT [facility] RDW 16.3(H) 11.5 - 14.5 % LAB HEMATOLOGY METHOD 05/20/2024 3:19 AM EDT [facility] MPV 9.8 8.8 - 12.5 fL LAB HEMATOLOGY METHOD 05/20/2024 3:19 AM EDT [facility] nRBC 0.0 <=0.0 per 100 WBCs LAB HEMATOLOGY METHOD 05/20/2024 3:19 AM EDT [facility] Differential Type Automated LAB HEMATOLOGY METHOD 05/20/2024 3:19 AM EDT [facility] Neutrophils % 64 % LAB HEMATOLOGY METHOD 05/20/2024 3:19 AM EDT [facility] Lymphocytes % 18 % LAB HEMATOLOGY METHOD 05/20/2024 3:19 AM EDT [facility] Monocytes % 11 % LAB HEMATOLOGY METHOD 05/20/2024 3:19 AM EDT [facility] Eosinophils % 3 % LAB HEMATOLOGY METHOD 05/20/2024 3:19 AM EDT [facility] Basophils % 1 % LAB HEMATOLOGY METHOD 05/20/2024 3:19 AM EDT [facility] Immature Granulocytes % 3 % LAB HEMATOLOGY METHOD 05/20/2024 3:19 AM EDT [facility] Neutrophils Absolute 7.92(H) 1.60 - 6.10 10*3/uL LAB HEMATOLOGY METHOD 05/20/2024 3:19 AM EDT [facility] Lymphocytes Absolute 2.27 1.20 - 3.90 10*3/uL LAB HEMATOLOGY METHOD 05/20/2024 3:19 AM EDT [facility] Monocytes Absolute 1.36(H) 0.30 - 0.90 10*3/uL LAB HEMATOLOGY METHOD 05/20/2024 3:19 AM EDT [facility] Eosinophils Absolute 0.37 0.00 - 0.50 10*3/uL LAB HEMATOLOGY METHOD 05/20/2024 3:19 AM EDT [facility] Basophils Absolute 0.10 0.00 - 0.10 10*3/uL LAB HEMATOLOGY METHOD 05/20/2024 3:19 AM EDT [facility] Immature Granulocytes Absolute 0.35(H) 0.00 - 0.06 10*3/uL LAB HEMATOLOGY METHOD 05/20/2024 3:19 AM EDT [facility] Blood Venous blood specimen / Unknown Venipuncture / Unknown 05/20/2024 2:15 AM EDT 05/20/2024 2:21 AM EDT Narrative [facility] - 05/20/2024 3:19 AM EDT Therapeutic decision making should be based on absolute values, rather than percentages. Marybel Suarez APRN LAB BLOOD ORDERABLES Fin al Result [facility] [address] [place] [address] * (ABNORMAL) Magnesium, Plasma (05/20/2024 2:15 AM EDT) Magnesium, Plasma 2.7(H) 1.9 - 2.4 mg/dL 05/20/2024 2:51 AM EDT [facility] Blood Venous blood specimen / Unknown Venipuncture / Unknown 05/20/2024 2:15 AM EDT 05/20/2024 2:21 AM EDT Marybel Suarez APRN LAB BLOOD ORDERABLES Fin al Result [facility] [address] [place] [address] * (ABNORMAL) Comprehensive metabolic panel (05/20/2024 2:15 AM EDT) Glucose, Plasma 127(H) 74 - 99 mg/dL 05/20/2024 2:51 AM EDT [facility] BUN, Plasma 11 7 - 21 mg/dL 05/20/2024 2:51 AM EDT [facility] [facility] Creatinine, Plasma 0.78 0.60 - 1.10 mg/dL 05/20/2024 2:51 AM EDT [facility] BUN/Creatinine Ratio 14 05/20/2024 2:51 AM EDT [facility] Sodium, Plasma 141 136 - 145 mmol/L 05/20/2024 2:51 AM EDT [facility] Potassium, Plasma 3.9 3.6 - 4.9 mmol/L 05/20/2024 2:51 AM EDT [facility] Chloride, Plasma 112(H) 97 - 107 mmol/L 05/20/2024 2:51 AM EDT [facility] CO2, Plasma 21(L) 22 - 29 mmol/L 05/20/2024 2:51 AM EDT [facility] Anion Gap 8 6 - 16 mmol/L 05/20/2024 2:51 AM EDT [facility] Total Calcium, Plasma 7.0(L) 8.9 - 10.2 mg/dL 05/20/2024 2:51 AM EDT [facility] Total Protein 5.5(L) 6.3 - 7.9 g/dL 05/20/2024 2:51 AM EDT [facility] Albumin, Plasma 2.0(L) 3.5 - 5.2 g/dL 05/20/2024 2:51 AM EDT [facility] AST, Plasma 53(H) 10 - 35 U/L 05/20/2024 2:51 AM EDT [facility] ALT, Plasma 20 10 - 35 U/L 05/20/2024 2:51 AM EDT [facility] Alkaline Phosphatase, Plasma 117(H) 35 - 104 U/L 05/20/2024 2:51 AM EDT [facility] Total Bilirubin, Plasma 0.7 0.2 - 1.1 mg/dL 05/20/2024 2:51 AM EDT [facility] eGFRcr 90.4 mL/min/1.7 3m*2 05/20/2024 2:51 AM EDT [facility] Comment:Reported eGFRcr in m L/min/1.73m2 is based the CKD-EPI 2020 equation that does not use a race coefficient. Blood Venous blood specimen / Unknown Venipuncture / Unknown 05/20/2024 2:15 AM EDT 05/20/2024 2:21 AM EDT [facility] BLOOD ORDERABLES Fin al Result Performing Organization Address [facility] de Phone Number [facility] [address] [place] [address] * (ABNORMAL) Lipase (05/20/2024 2:15 AM EDT) Lipase, Plasma 84(H) 19 - 63 U/L 05/20/2024 2:51 AM EDT [facility] Blood Venous blood specimen / Unknown Venipuncture / Unknown 05/20/2024 2:15 AM EDT 05/20/2024 2:21 AM EDT [facility] LAB BLOOD ORDERABLES Fin al Result Performing Organization Address City/[facility] Co de Phone Number [facility] [address] [place] [address] * XR Chest 1 View (05/20/2024 1:23 [...] signing this report, I, the attending physician, attederat I have personally reviewed the images/data for [...] - 99 mg/dL 05/19/2024 11:31 PM EDT [facility] Comment:Accuracy of a glucos e result [...] Comment 05/19/2024 11:31 PM EDT [facility] 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 AkhmedEfren [email or web address] 05/20/19 11:31 PM EDT [facility] Device ID [id number] 05/19/2024 11:31 PM EDT [facility] Specimen Type POC Capillary 05/19/2024 11:31 PM EDT [facility] Blood Capillary blood specimen / Unknown 05/19/2024 11:30 PM EDT 05/19/2024 11:31 PM EDT us Maite Austin MD LAB POINT OF CARE TE ST DOCKED DEVICE UNSOLICITED RESULTS Final Result Performing Organization Address City/[facility]/ZIP Co de Phone Number [facility] [address] [place] [address] * (ABNORMAL) Magnesium (05/19/2024 6:32 PM EDT) Magnesium, Plasma 1.8(L) 1.9 - 2.4 mg/dL 05/19/2024 7:12 PM EDT [facility] Blood Venous blood specimen / Unknown Venipuncture / Unknown 05/19/2024 6:32 PM EDT 05/19/2024 6:46 PM EDT us Maite Austin MD LAB BLOOD ORDERABLES Final Resu lt [facility] [address] [place] [address] * (ABNORMAL) Renal function panel (05/19/2024 6:32 PM EDT) Glucose, Plasma 103(H) 74 - 99 mg/dL 05/19/2024 7:12 PM EDT [facility] BUN, Plasma 10 7 - 21 mg/dL 05/19/2024 7:12 PM EDT [facility] Creatinine, Plasma 0.87 0.60 - 1.10 mg/dL 05/19/2024 7:12 PM EDT [facility] BUN/Creatinine Ratio 11 05/19/2024 7:12 PM EDT [facility] Sodium, Plasma 141 136 - 145 mmol/L 05/19/2024 7:12 PM EDT [facility] Potassium, Plasma 4.0 3.6 - 4.9 mmol/L 05/19/2024 7:12 PM EDT [facility] Chloride, Plasma 111(H) 97 - 107 mmol/L 05/19/2024 7:12 PM EDT [facility] CO2, Plasma 20(L) 22 - 29 mmol/L 05/19/2024 7:12 PM EDT [facility] Anion Gap 10 6 - 16 mmol/L 05/19/2024 7:12 PM EDT [facility] Total Calcium, Plasma 6.9(L) 8.9 - 10.2 mg/dL 05/19/2024 7:12 PM EDT [facility] Phosphorus, Plasma 2.8 2.5 - 4.5 mg/dL 05/19/2024 7:12 PM EDT [facility] Albumin, Plasma 2.1(L) 3.5 - 5.2 g/dL 05/19/2024 7:12 PM EDT [facility] eGFRcr 79.3 mL/min/1.7 3m*2 05/19/2024 7:12 PM EDT [facility] Comment:Reported eGFRcr in m L/min/1.73m2 is based the CKD-EPI 2020 equation that does not use a race coefficient. Blood Venous blood specimen / Unknown Venipuncture / Unknown 05/19/2024 6:32 PM EDT 05/19/2024 6:46 PM EDT us Maite Austin MD LAB BLOOD ORDERABLES Final Resu lt [facility] [address] [place] [address] * (ABNORMAL) POCT glucose meter (05/19/2024 6:31 [...] Comment 05/19/2024 6:33 PM EDT [facility] 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 Dina Casiano 05/19/2024 6:33 PM EDT [facility] Device ID [id number] 05/19/2024 6:33 PM EDT [facility] Specimen Type POC Arterial 05/19/2024 6:33 PM EDT [facility] Blood Arterial blood specimen / Unknown 05/19/2024 6:31 PM EDT 05/19/2024 6:33 PM EDT us Maite Austin MD LAB POINT OF CARE TE ST DOCKED DEVICE UNSOLICITED RESULTS Final Result Performing Organization Address City/State/[facility] Co de Phone Number [facility] [address] [place] [address] * [facility], E/M 30-74 MINUTES (05/19/2024 2:52 [...] Comment 05/19/2024 11:54 AM EDT [facility] 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 Dina Casiano 05/19/2024 11:54 AM EDT [facility] Device ID [id number] 05/19/2024 11:54 AM EDT [facility] Specimen Type POC Arterial 05/19/2024 11:54 AM EDT [facility] Blood Arterial blood specimen / Unknown 05/19/2024 11:52 AM EDT 05/19/2024 11:54 AM EDT us Maite Austin MD LAB POINT OF CARE TE ST DOCKED DEVICE UNSOLICITED RESULTS Final Result Performing Organization Address City/[facility] Co de Phone Number [facility] [address] [place] [address] * Triglycerides (05/19/2024 11:42 AM EDT) [facility] Triglycerides, Plasma 76 <150 mg/dL 05/19/2024 1:45 PM EDT [facility] Comment: Triglyceride Reference Range (age >17 years): Desirable: <150 mg/dL Borderline high: 150 to 199 mg/dL High: 200 to 499 mg/dL Very high: >499 mg/dL Increased risk of pancreatitis: >1000 mg/dL Fasting greater than or equal to 12 hours? Unknown 05/19/2024 1:45 PM EDT [facility] Blood Venous blood specimen / Unknown Venipuncture / Unknown 05/19/2024 11:42 AM EDT 05/19/2024 12:00 PM EDT us Maite Austin MD LAB BLOOD ORDERABLES Final Resu lt Performing Organization Address City/[facility]/ZIP Co de Phone Number [facility] [address] [place] [phone] * (ABNORMAL) Magnesium, Plasma (05/19/2024 11:42 AM EDT) Magnesium, Plasma 1.8(L) 1.9 - 2.4 mg/dL 05/19/2024 12:33 PM EDT [facility] Blood Venous blood specimen / Unknown Venipuncture / Unknown 05/19/2024 11:42 AM EDT 05/19/2024 12:00 PM EDT Marybel Suarez ADMISSIONS SUPERVISOR LAB BLOOD ORDERABLES Fin al Result [facility] [address] [place] [address] * (ABNORMAL) Renal Function Panel, Plasma (05/19/2024 11:42 AM EDT) Glucose, Plasma 106(H) 74 - 99 mg/dL 05/19/2024 12:33 PM EDT [facility] BUN, Plasma 10 7 - 21 mg/dL 05/19/2024 12:33 PM EDT [facility] Creatinine, Plasma 0.91 0.60 - 1.10 mg/dL 05/19/2024 12:33 PM EDT [facility] BUN/Creatinine Ratio 11 05/19/2024 12:33 PM EDT [facility] Sodium, Plasma 143 136 - 145 mmol/L 05/19/2024 12:33 PM EDT [facility] Potassium, Plasma 4.1 3.6 - 4.9 mmol/L 05/19/2024 12:33 PM EDT [facility] Chloride, Plasma 115(H) 97 - 107 mmol/L 05/19/2024 12:33 PM EDT [facility] CO2, Plasma 19(L) 22 - 29 mmol/L 05/19/2024 12:33 PM EDT [facility] Anion Gap 9 6 - 16 mmol/L 05/19/2024 12:33 PM EDT [facility] Total Calcium, Plasma 6.7(L) 8.9 - 10.2 mg/dL 05/19/2024 12:33 PM EDT [facility] Phosphorus, Plasma 3.0 2.5 - 4.5 mg/dL 05/19/2024 12:33 PM EDT [facility] Albumin, Plasma 2.0(L) 3.5 - 5.2 g/dL 05/19/2024 12:33 PM EDT [facility] eGFRcr 75.1 mL/min/1.7 3m*2 05/19/2024 12:33 PM EDT [facility] Comment:Reported eGFRcr in m L/min/1.73m2 is based the CKD-EPI 2020 equation that does not use a race coefficient. Blood Venous blood specimen / Unknown Venipuncture / Unknown 05/19/2024 11:42 AM EDT 05/19/2024 12:00 PM EDT Marybel Suarez ADMISSIONS SUPERVISOR LAB BLOOD ORDERABLES Fin al Result [facility] [address] [place] [address] * XR Chest 1 View (05/19/2024 4:43 [...] Edson Ambrose MD on 05/19/2024 10:16 AM us Maite Austin MD IMG XR [...] APRN IMG XR PROCEDURES Final Result * [facility], ADDL 30 MIN (05/19/2024 2:30 [...] - 2.4 mg/dL 05/19/2024 2:45 AM EDT [facility] Blood Venous blood specimen / Unknown Venipuncture / Unknown 05/19/2024 2:02 AM EDT 05/19/2024 2:12 AM EDT Marybel Suarez APRN LAB BLOOD ORDERABLES Fin al Result [facility] [address] [place] [address] * (ABNORMAL) Comprehensive metabolic panel (05/19/2024 2:02 AM EDT) Glucose, Plasma 140(H) 74 - 99 mg/dL 05/19/2024 2:45 AM EDT [facility] BUN, Plasma 9 7 - 21 mg/dL 05/19/2024 2:45 AM EDT [facility] Creatinine, Plasma 0.80 0.60 - 1.10 mg/dL 05/19/2024 2:45 AM EDT [facility] BUN/Creatinine Ratio 11 05/19/2024 2:45 AM EDT [facility] Sodium, Plasma 142 136 - 145 mmol/L 05/19/2024 2:45 AM EDT [facility] Potassium, Plasma 3.6 3.6 - 4.9 mmol/L 05/19/2024 2:45 AM EDT [facility] Chloride, Plasma 115(H) 97 - 107 mmol/L 05/19/2024 2:45 AM EDT [facility] CO2, Plasma 17(L) 22 - 29 mmol/L 05/19/2024 2:45 AM EDT [facility] Anion Gap 10 6 - 16 mmol/L 05/19/2024 2:45 AM EDT [facility] Total Calcium, Plasma 6.8(L) 8.9 - 10.2 mg/dL 05/19/2024 2:45 AM EDT [facility] Total Protein 5.5(L) 6.3 - 7.9 g/dL 05/19/2024 2:45 AM EDT [facility] Albumin, Plasma 2.1(L) 3.5 - 5.2 g/dL 05/19/2024 2:45 AM EDT [facility] AST, Plasma 53(H) 10 - 35 U/L 05/19/2024 2:45 AM EDT [facility] ALT, Plasma 23 10 - 35 U/L 05/19/2024 2:45 AM EDT [facility] Alkaline Phosphatase, Plasma 111(H) 35 - 104 U/L 05/19/2024 2:45 AM EDT [facility] Total Bilirubin, Plasma 1.1 0.2 - 1.1 mg/dL 05/19/2024 2:45 AM EDT [facility] eGFRcr 87.7 mL/min/1.7 3m*2 05/19/2024 2:45 AM EDT [facility] Comment:Reported eGFRcr in m L/min/1.73m2 is based the CKD-EPI 2020 equation that does not use a race coefficient. Blood Venous blood specimen / Unknown Venipuncture / Unknown 05/19/2024 2:02 AM EDT 05/19/2024 2:12 AM EDT Marybel Suarez APRN LAB BLOOD ORDERABLES Fin al Result [facility] [address] [place] [address] * (ABNORMAL) CBC and differential (05/19/2024 2:02 AM EDT) WBC Count 14.70(H) 3.70 - 10.30 10*3/uL LAB HEMATOLOGY METHOD 05/19/2024 3:26 AM EDT [facility] RBC Count 3.16(L) 3.90 - 5.20 10*6/uL LAB HEMATOLOGY METHOD 05/19/2024 3:26 AM EDT [facility] HGB 9.2(L) 11.2 - 15.7 g/dL LAB HEMATOLOGY METHOD 05/19/2024 3:26 AM EDT [facility] HCT 27.7(L) 34.0 - 45.0 % LAB HEMATOLOGY METHOD 05/19/2024 3:26 AM EDT [facility] Platelet Count 629(H) 155 - 369 10*3/uL LAB HEMATOLOGY METHOD 05/19/2024 3:26 AM EDT [facility] MCV 88 79 - 98 fL LAB HEMATOLOGY METHOD 05/19/2024 3:26 AM EDT [facility] MCH 29.1 26.0 - 32.0 pg LAB HEMATOLOGY METHOD 05/19/2024 3:26 AM EDT [facility] MCHC 33.2 30.7 - 35.5 g/dL LAB HEMATOLOGY METHOD 05/19/2024 3:26 AM EDT [facility] RDW 16.6(H) 11.5 - 14.5 % LAB HEMATOLOGY METHOD 05/19/2024 3:26 AM EDT [facility] MPV 9.7 8.8 - 12.5 fL LAB HEMATOLOGY METHOD 05/19/2024 3:26 AM EDT [facility] nRBC 0.0 <=0.0 per 100 WBCs LAB HEMATOLOGY METHOD 05/19/2024 3:26 AM EDT [facility] Differential Type Automated LAB HEMATOLOGY METHOD 05/19/2024 3:26 AM EDT [facility] Neutrophils % 74 % LAB HEMATOLOGY METHOD 05/19/2024 3:26 AM EDT [facility] Lymphocytes % 12 % LAB HEMATOLOGY METHOD 05/19/2024 3:26 AM EDT [facility] Monocytes % 10 % LAB HEMATOLOGY METHOD 05/19/2024 3:26 AM EDT [facility] Eosinophils % 1 % LAB HEMATOLOGY METHOD 05/19/2024 3:26 AM EDT [facility] Basophils % 1 % LAB HEMATOLOGY METHOD 05/19/2024 3:26 AM EDT [facility] Immature Granulocytes % 2 % LAB HEMATOLOGY METHOD 05/19/2024 3:26 AM EDT [facility] Neutrophils Absolute 10.82(H) 1.60 - 6.10 10*3/uL LAB HEMATOLOGY METHOD 05/19/2024 3:26 AM EDT [facility] Lymphocytes Absolute 1.83 1.20 - 3.90 10*3/uL LAB HEMATOLOGY METHOD 05/19/2024 3:26 AM EDT [facility] Monocytes Absolute 1.52(H) 0.30 - 0.90 10*3/uL LAB HEMATOLOGY METHOD 05/19/2024 3:26 AM EDT [facility] Eosinophils Absolute 0.20 0.00 - 0.50 10*3/uL LAB HEMATOLOGY METHOD 05/19/2024 3:26 AM EDT [facility] Basophils Absolute 0.11(H) 0.00 - 0.10 10*3/uL LAB HEMATOLOGY METHOD 05/19/2024 3:26 AM EDT [facility] Immature Granulocytes Absolute 0.22(H) 0.00 - 0.06 10*3/uL LAB HEMATOLOGY METHOD 05/19/2024 3:26 AM EDT [facility] Blood Venous blood specimen / Unknown Venipuncture / Unknown 05/19/2024 2:02 AM EDT 05/19/2024 2:12 AM EDT Narrative [facility] - 05/19/2024 3:26 AM EDT Therapeutic decision making should be based on absolute values, rather than percentages. Maite Austin MD LAB BLOOD ORDERABLES Final Resu lt Performing Organization Address City/[facility]/ZIP Co de Phone Number [facility] [address] [place] [address] * (ABNORMAL) POCT glucose meter (05/19/2024 1:28 [...] Comment 05/19/2024 1:30 AM EDT [facility] [employer] 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 Lesli Gardner 05/19/2024 1:30 AM EDT [facility] Device ID [id number] 05/19/2024 1:30 AM EDT [facility] Specimen Type POC Capillary 05/19/2024 1:30 AM EDT [facility] Blood Capillary blood specimen / Unknown 05/19/2024 1:28 AM EDT 05/19/2024 1:30 AM EDT us Maite Austin MD LAB POINT OF CARE TE ST DOCKED DEVICE UNSOLICITED RESULTS Final Result Performing Organization Address City/[facility]/ZIP Co de Phone Number [facility] [address] [place] [address] * POCT glucose meter (05/19/2024 1:10 AM [...] for testing. Comment 05/19/2024 1:12 AM EDT [facility] J[employer] 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 Efren Lovell 05/20/19 1:12 AM EDT [facility] Device ID [id number] 05/19/2024 1:12 AM EDT [facility] Specimen Type POC Capillary 05/19/2024 1:12 AM EDT [facility] Blood Capillary blood specimen / Unknown 05/19/2024 1:10 AM EDT 05/19/2024 1:12 AM EDT us Maite Austin MD LAB POINT OF CARE TE ST DOCKED DEVICE UNSOLICITED RESULTS Final Result Performing Organization Address City/State/[facility] Co ms Phone Number [facility] [address] [place] [address] * PICC DOUBLE LUMEN (SMARTFORM LINK) (05/19/2024 12:50 AM EDT) Narrative Sundeep Holt RN - 05/19/2024 12:50 AM EDT Sundeep Holt RN 05/19/2024 1:26 AM Insert PICC line Performed by: Sundeep Holt RN Authorized by: Maite Austin MD [place] Protocol: Verbal consent obtained?: Yes Written consent obtained?: Yes Risks and benefits: Risks, benefits and alternatives were discussed Consent given by: Patient and power of blog writer (Written Consent obtained by madalyn VAT/PICC RN [...] Left Location (Adult): Basilic vein (Largest vein, [id number] ratio 27%) Site selection rationale: RUE PIV and right radial arterial line. Patient position: Supine Catheter Lot #: [id number] Catheter extrusion press adjuster: NXT-ID Power PICC Provena Catheter placed: Double lumen [...] placed on end of each lumen hub. [place] limb precaution armband placed on left wrist for PICC precautions while PICC is in place (No sticks/BP's). VAT consult completed. us Maite Austin MD IV THERAPY ORDERABLES Edited Re sult - Final * Comprehensive GI Panel by PCR (05/18/2024 11:47 PM EDT) Campylobacter PCR Result Not Detected Not Detected 05/19/2024 1:41 PM EDT [facility] Plesiomonas shigelloides PCR Result Not Detected Not Detected 05/19/2024 1:41 PM EDT [facility] Salmonella PCR Result Not Detected Not Detected 05/19/2024 1:41 PM EDT [facility] Vibrio species PCR Result Not Detected Not Detected 05/19/2024 1:41 PM EDT [facility] Vibrio cholerae PCR Result Not Detected Not Detected 05/19/2024 1:41 PM EDT [facility] Yersinia enterocolitica PCR Result Not Detected Not Detected 05/19/2024 1:41 PM EDT [facility] Enteroaggregative E. coli (EAEC) PCR Result Not Detected Not Detected 05/19/2024 1:41 PM EDT [facility] Enteropathogenic E. coli (EPEC) PCR Result Not Detected Not Detected 05/19/2024 1:41 PM EDT [facility] Enterotoxigenic E. coli (ETEC) lt/st PCR Result Not Detected Not Detected 05/19/2024 1:41 PM EDT [facility] Shiga-like Toxin-Producing E.coli (STEC) stx1/stx2 PCR Resu Not Detected Not Detected 05/19/2024 1:41 PM EDT [facility] E coli 0157 PCR Result Not Detected Not Detected 05/19/2024 1:41 PM EDT [facility] Shigella/Enteroinvas alexsandra E. coli (EIEC) PCR Result Not Detected Not Detected 05/19/2024 1:41 PM EDT [facility] Cryptosporidium PCR Result Not Detected Not Detected 05/19/2024 1:41 PM EDT [facility] Cyclospora cayetanensis PCR Result Not Detected Not Detected 05/19/2024 1:41 PM EDT [facility] Entamoeba histolytica PCR Result Not Detected Not Detected 05/19/2024 1:41 PM EDT [facility] Giardia duodenalis (aka Giardia lamblia) PCR Result Not Detected Not Detected 05/19/2024 1:41 PM EDT [facility] Adenovirus F 40/41 PCR Result Not Detected Not Detected 05/19/2024 1:41 PM EDT [facility] Astrovirus PCR Result Not Detected Not Detected 05/19/2024 1:41 PM EDT [facility] Norovirus GI/GII PCR Result Not Detected Not Detected 05/19/2024 1:41 PM EDT [facility] Rotavirus A PCR Result Not Detected Not Detected 05/19/2024 1:41 PM EDT [facility] Sapovirus PCR Result Not Detected Not Detected 05/19/2024 1:41 PM EDT [facility] Stool Rectum structure / Unknown Non-blood Collection / Unknown 05/18/2024 11:47 PM EDT 05/19/2024 2:07 AM EDT Narrative [facility] - 05/19/2024 1:41 PM EDT This [...] indicated. Marybel Suarez APRN LAB MICROBIOLOGY - [facility] AL ORDERABLES Final Result [facility] [address] [place] [address] * Clostridiodes (Clostridium) difficile PCR (05/18/2024 11:47 PM EDT) C difficile PCR toxin B gene DNA Result Not Detected Not Detected 05/19/2024 7:36 AM EDT [facility] Stool Rectum structure / Unknown Non-blood Collection / Unknown 05/18/2024 11:47 PM EDT 05/19/2024 2:07 AM EDT Narrative [facility] - 05/19/2024 7:36 AM EDT This [...] MICROBIOLOGY - GENER AL ORDERABLES Final Result [facility] [address] [place] [address] * POCT glucose meter (05/18/2024 11:21 PM EDT) POCT Glucose 97 74 - 99 mg/dL 05/18/2024 11:23 PM EDT [facility] Comment:Accuracy of a [...] Comment 05/18/2024 11:23 PM EDT [facility] [employer] 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 Lesli Gardner 05/18/2024 11:23 PM EDT [facility] Device ID [id number] 05/18/2024 11:23 PM EDT [facility] Specimen Type POC Capillary 05/18/2024 11:23 PM EDT [facility] Blood Capillary blood specimen / Unknown 05/18/2024 11:21 PM EDT 05/18/2024 11:23 PM EDT Maite Austin MD LAB POINT OF CARE TE ST DOCKED DEVICE UNSOLICITED RESULTS Final Result Performing Organization Address City/[facility]/ZIP Co de Phone Number [facility] [address] [place] [address] * (ABNORMAL) POCT glucose meter (05/18/2024 5:55 [...] Comment 05/18/2024 5:57 PM EDT [facility] [employer] 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 Theresa Hairston 5:57 PM EDT [facility] Device ID [id number] 05/18/2024 5:57 PM EDT [facility] Specimen Type POC Arterial 05/18/2024 5:57 PM EDT [facility] Blood Arterial blood specimen / Unknown 05/18/2024 5:55 PM EDT 05/18/2024 5:57 PM EDT us Maite Austin MD LAB POINT OF CARE TE ST DOCKED DEVICE UNSOLICITED RESULTS Final Result Performing Organization Address City/State/[facility] Co de Phone Number [facility] [address] [place] [address] * [facility], E/M 30-74 MINUTES (05/18/2024 2:28 [...] Comment 05/18/2024 2:07 PM EDT [facility] 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 Theresa Hairston 2:07 PM EDT [facility] Device ID [id number] 05/18/2024 2:07 PM EDT [facility] Specimen Type POC Arterial 05/18/2024 2:07 PM EDT [facility] Blood Arterial blood specimen / Unknown 05/18/2024 2:06 PM EDT 05/18/2024 2:07 PM EDT Maite Austin MD LAB POINT OF CARE TE ST DOCKED DEVICE UNSOLICITED RESULTS Final Result [facility] [address] [place] [address] * [place] Upper GI (05/18/2024 11:25 AM [...] - 99 mg/dL 05/18/2024 9:30 AM EDT [facility] Comment:Accuracy of a glucos e [...] for testing. Comment 05/18/2024 9:30 AM EDT [facility] 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 Theresa Hairston 9:30 AM EDT [facility] Device ID [id number] 05/18/2024 9:30 AM EDT [facility] Specimen Type POC Arterial 05/18/2024 9:30 AM EDT [facility] Blood Arterial blood specimen / Unknown 05/18/2024 9:29 AM EDT 05/18/2024 9:30 AM EDT Maite Austin MD LAB POINT OF CARE TE ST DOCKED DEVICE UNSOLICITED RESULTS Final Result Performing Organization Address City/[facility]/ZIP Co de Phone Number [facility] [address] [place] [address] * Magnesium (05/18/2024 4:00 AM EDT) Magnesium, Plasma 2.3 1.9 - 2.4 mg/dL 05/18/2024 7:11 AM EDT [facility] Blood Arterial blood specimen / Unknown Venipuncture / Unknown 05/18/2024 4:00 AM EDT 05/18/2024 4:31 AM EDT us Maite Austin MD LAB BLOOD ORDERABLES Final Resu lt Performing Organization Address City/[facility] [facility]/ZIP Co de Phone Number [facility] [address] [place] [address] * Phosphorus (05/18/2024 4:00 AM EDT) Pathologist [facility] Phosphorus, Plasma 3.0 2.5 - 4.5 mg/dL 05/18/2024 7:11 AM EDT [facility] Blood Arterial blood specimen / Unknown Venipuncture / Unknown 05/18/2024 4:00 AM EDT 05/18/2024 4:31 AM EDT us Maite Austin MD LAB BLOOD ORDERABLES Final Resu lt Performing Organization Address City/[facility]/ZIP Co de Phone Number [facility] [address] [place] [address] * (ABNORMAL) Hepatic function panel (05/18/2024 4:00 AM EDT) Conjugated Bilirubin, Plasma 0.6(H) <=0.3 mg/dL 05/18/2024 5:04 AM EDT [facility] Alkaline Phosphatase, Plasma 113(H) 35 - 104 U/L 05/18/2024 5:04 AM EDT [facility] Total Bilirubin, Plasma 1.1 0.2 - 1.1 mg/dL 05/18/2024 5:04 AM EDT [facility] Albumin, Plasma 2.1(L) 3.5 - 5.2 g/dL 05/18/2024 5:04 AM EDT [facility] Total Protein 5.5(L) 6.3 - 7.9 g/dL 05/18/2024 5:04 AM EDT [facility] ALT, Plasma 24 10 - 35 U/L 05/18/2024 5:04 AM EDT [facility] AST, Plasma 53(H) 10 - 35 U/L 05/18/2024 5:04 AM EDT [facility] Blood Arterial blood specimen / Unknown Venipuncture / Unknown 05/18/2024 4:00 AM EDT 05/18/2024 4:31 AM EDT Edson Mcclure DO LAB BLOOD ORDERABLES Final R esult Performing Organization Address City/[facility]/ZIP Co de Phone Number [facility] [address] [place] [address] * (ABNORMAL) GGT (05/18/2024 4:00 AM EDT) GGT, Plasma 105(H) 5 - 36 U/L 05/18/2024 5:04 AM EDT [facility] Blood Arterial blood specimen / Unknown Venipuncture / Unknown 05/18/2024 4:00 AM EDT 05/18/2024 4:31 AM EDT Edson Mcclure DO LAB BLOOD ORDERABLES Final R esult Performing Organization Address City/[facility]/ZIP Co de Phone Number [facility] [address] [place] [address] * (ABNORMAL) Amylase, Plasma (05/18/2024 4:00 AM EDT) Amylase 129(H) 27 - 114 U/L 05/18/2024 5:04 AM EDT [facility] Blood Arterial blood specimen / Unknown Venipuncture / Unknown 05/18/2024 4:00 AM EDT 05/18/2024 4:31 AM EDT Edson Mcclure DO LAB BLOOD ORDERABLES Final R esult [facility] [address] [place] [address] * (ABNORMAL) Lipase (05/18/2024 4:00 AM EDT) Pathologist [facility] Lipase, Plasma 92(H) 19 - 63 U/L 05/18/2024 5:04 AM EDT [facility] Blood Arterial blood specimen / Unknown Venipuncture / Unknown 05/18/2024 4:00 AM EDT 05/18/2024 4:31 AM EDT Edson Evans [email or web address] LAB BLOOD ORDERABLES Final R [facility] Performing Organization Address City/[facility]/ZIP Co de Phone Number [facility] [address] [place] [address] * (ABNORMAL) Blood gas panel, arterial (05/18/2024 4:00 AM EDT) Pathologist [facility] pH, Arterial 7.45 7.35 - 7.45 LAB HEMATOLOGY METHOD 05/18/2024 4:13 AM EDT [facility] pCO2, Arterial 28(L) 35 - 48 mmHg LAB HEMATOLOGY METHOD 05/18/2024 4:13 AM EDT [facility] pO2, Arterial 72(L) 83 - 108 mmHg LAB HEMATOLOGY METHOD 05/18/2024 4:13 AM EDT [facility] SO2, Measured, Arterial 95 94 - 98 % LAB HEMATOLOGY METHOD 05/18/2024 4:13 AM EDT [facility] Base Excess, Arterial -3.6(L) -2.0 - 3.0 mmol/L LAB HEMATOLOGY METHOD 05/18/2024 4:13 AM EDT [facility] Bicarbonate, Calculated, Arterial 20(L) 22 - 26 mmol/L LAB HEMATOLOGY METHOD 05/18/2024 4:13 AM EDT [facility] Hematocrit, Whole Blood 30.1(L) 34.0 - 45.0 % LAB HEMATOLOGY METHOD 05/18/2024 4:13 AM EDT [facility] Sodium, Whole Blood 142 136 - 145 mmol/L LAB HEMATOLOGY METHOD 05/18/2024 4:13 AM EDT [facility] Potassium, Whole Blood 3.7 3.6 - 4.9 mmol/L LAB HEMATOLOGY METHOD 05/18/2024 4:13 AM EDT [facility] Chloride, Whole Blood 116(H) 97 - 107 mmol/L LAB HEMATOLOGY METHOD 05/18/2024 4:13 AM EDT [facility] Glucose, Whole Blood 110(H) 74 - 99 mg/dL LAB HEMATOLOGY METHOD 05/18/2024 4:13 AM EDT [facility] Ionized Calcium, Whole Blood 4.2(L) 4.6 - 5.1 mg/dL LAB HEMATOLOGY METHOD 05/18/2024 4:13 AM EDT [facility] Lactate, Arterial, Whole Blood 1.3 0.5 - 1.6 mmol/L LAB HEMATOLOGY METHOD 05/18/2024 4:13 AM EDT [facility] Blood Arterial blood specimen / Unknown Arterial Puncture / Unknown 05/18/2024 4:00 AM EDT 05/18/2024 4:12 AM EDT Marybel Suarez APRN LAB BLOOD ORDERABLES Fin al Result [facility] [address] [place] [address] * (ABNORMAL) POCT glucose meter (05/18/2024 3:59 AM EDT) POCT Glucose 119(H) 74 - 99 [...] Comment 05/18/2024 4:01 AM EDT [facility] 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 Linda Amor 05/19/19 4:01 AM EDT [facility] Device ID [id number] 05/18/2024 4:01 AM EDT [facility] Specimen Type POC Arterial 05/18/2024 4:01 AM EDT [facility] Blood Arterial blood specimen / Unknown 05/18/2024 3:59 AM EDT 05/18/2024 4:01 AM EDT us Maite Austin MD LAB POINT OF CARE TE ST DOCKED DEVICE UNSOLICITED RESULTS Final Result [facility] [address] [place] [address] * XR Chest 1 View (05/18/2024 2:30 [...] Pb Yadav MD on 05/18/2024 8:17 AM us Maite Austin MD IMG XR [...] MD on 05/18/2024 2:52 AM Marybel Suarez ADMISSIONS SUPERVISOR IM CT PROCEDURES Final Result * CT [...] Total DLP (Dose-Length Product): 1602.32 mGy.cm (accession [id number]), 1602.32 mGy.cm (accession [id number]). Please note: The reported value represents the [...] Total DLP (Dose-Length Product): 1602.32 mGy.cm (accession [id number]),1602.32 mGy.cm (accession [id number]). Please note: The reported valuerepresents the total [...] MD on 05/18/2024 3:15 AM Marybel Suarez ADMISSIONS SUPERVISOR IM CT PROCEDURES Final Result * CT [...] Total DLP (Dose-Length Product): 1602.32 mGy.cm (accession [id number]), 1602.32 mGy.cm (accession [id number]). Please note: The reported value represents the [...] Total DLP (Dose-Length Product): 1602.32 mGy.cm (accession [id number]),1602.32 mGy.cm (accession [id number]). Please note: The reported valuerepresents the total [...] - 2.4 mg/dL 05/18/2024 12:55 AM EDT [facility] Blood Arterial blood specimen / Unknown Venipuncture / Unknown 05/18/2024 12:20 AM EDT 05/18/2024 12:25 AM EDT Marybel Suarez APRN LAB BLOOD ORDERABLES Fin al Result [facility] [address] [place] [address] * (ABNORMAL) Comprehensive metabolic panel (05/18/2024 12:20 AM EDT) Glucose, Plasma 112(H) 74 - 99 mg/dL 05/18/2024 12:55 AM EDT [facility] BUN, Plasma 13 7 - 21 mg/dL 05/18/2024 12:55 AM EDT [facility] Creatinine, Plasma 0.77 0.60 - 1.10 mg/dL 05/18/2024 12:55 AM EDT [facility] BUN/Creatinine Ratio 17 05/18/2024 12:55 AM EDT [facility] Sodium, Plasma 143 136 - 145 mmol/L 05/18/2024 12:55 AM EDT [facility] Potassium, Plasma 4.2 3.6 - 4.9 mmol/L 05/18/2024 12:55 AM EDT [facility] Chloride, Plasma 115(H) 97 - 107 mmol/L 05/18/2024 12:55 AM EDT [facility] CO2, Plasma 19(L) 22 - 29 mmol/L 05/18/2024 12:55 AM EDT [facility] Anion Gap 9 6 - 16 mmol/L 05/18/2024 12:55 AM EDT [facility] Total Calcium, Plasma 7.5(L) 8.9 - 10.2 mg/dL 05/18/2024 12:55 AM EDT [facility] Total Protein 5.6(L) 6.3 - 7.9 g/dL 05/18/2024 12:55 AM EDT [facility] Albumin, Plasma 2.1(L) 3.5 - 5.2 g/dL 05/18/2024 12:55 AM EDT [facility] AST, Plasma 61(H) 10 - 35 U/L 05/18/2024 12:55 AM EDT [facility] ALT, Plasma 27 10 - 35 U/L 05/18/2024 12:55 AM EDT [facility] Alkaline Phosphatase, Plasma 115(H) 35 - 104 U/L 05/18/2024 12:55 AM EDT [facility] Total Bilirubin, Plasma 1.1 0.2 - 1.1 mg/dL 05/18/2024 12:55 AM EDT [facility] eGFRcr 91.8 mL/min/1.7 3m*2 05/18/2024 12:55 AM EDT [facility] Comment:Reported eGFRcr in m L/min/1.73m2 is based the CKD-EPI 2020 equation that does not use a race coefficient. Blood Arterial blood specimen / Unknown Venipuncture / Unknown 05/18/2024 12:20 AM EDT 05/18/2024 12:25 AM EDT us Marybel Suarez APRN LAB BLOOD ORDERABLES Fin al Result [facility] [address] [place] [address] * (ABNORMAL) CBC and differential (05/18/2024 12:20 AM EDT) WBC Count 14.70(H) 3.70 - 10.30 10*3/uL LAB HEMATOLOGY METHOD 05/18/2024 1:36 AM EDT [facility] RBC Count 3.31(L) 3.90 - 5.20 10*6/uL LAB HEMATOLOGY METHOD 05/18/2024 1:36 AM EDT [facility] HGB 9.6(L) 11.2 - 15.7 g/dL LAB HEMATOLOGY METHOD 05/18/2024 1:36 AM EDT [facility] HCT 29.0(L) 34.0 - 45.0 % LAB HEMATOLOGY METHOD 05/18/2024 1:36 AM EDT [facility] Platelet Count 590(H) 155 - 369 10*3/uL LAB HEMATOLOGY METHOD 05/18/2024 1:36 AM EDT [facility] MCV 88 79 - 98 fL LAB HEMATOLOGY METHOD 05/18/2024 1:36 AM EDT [facility] MCH 29.0 26.0 - 32.0 pg LAB HEMATOLOGY METHOD 05/18/2024 1:36 AM EDT [facility] MCHC 33.1 30.7 - 35.5 g/dL LAB HEMATOLOGY METHOD 05/18/2024 1:36 AM EDT [facility] RDW 17.0(H) 11.5 - 14.5 % LAB HEMATOLOGY METHOD 05/18/2024 1:36 AM EDT [facility] MPV 9.8 8.8 - 12.5 fL LAB HEMATOLOGY METHOD 05/18/2024 1:36 AM EDT [facility] nRBC 0.1(H) <=0.0 per 100 WBCs LAB HEMATOLOGY METHOD 05/18/2024 1:36 AM EDT [facility] Differential Type Automated LAB HEMATOLOGY METHOD 05/18/2024 1:36 AM EDT [facility] Neutrophils % 77 % LAB HEMATOLOGY METHOD 05/18/2024 1:36 AM EDT [facility] Lymphocytes % 11 % LAB HEMATOLOGY METHOD 05/18/2024 1:36 AM EDT [facility] Monocytes % 8 % LAB HEMATOLOGY METHOD 05/18/2024 1:36 AM EDT [facility] Eosinophils % 1 % LAB HEMATOLOGY METHOD 05/18/2024 1:36 AM EDT [facility] Basophils % 1 % LAB HEMATOLOGY METHOD 05/18/2024 1:36 AM EDT [facility] Immature Granulocytes % 2 % LAB HEMATOLOGY METHOD 05/18/2024 1:36 AM EDT [facility] Neutrophils Absolute 11.39(H) 1.60 - 6.10 10*3/uL LAB HEMATOLOGY METHOD 05/18/2024 1:36 AM EDT [facility] Lymphocytes Absolute 1.67 1.20 - 3.90 10*3/uL LAB HEMATOLOGY METHOD 05/18/2024 1:36 AM EDT [facility] Monocytes Absolute 1.20(H) 0.30 - 0.90 10*3/uL LAB HEMATOLOGY METHOD 05/18/2024 1:36 AM EDT [facility] Eosinophils Absolute 0.09 0.00 - 0.50 10*3/uL LAB HEMATOLOGY METHOD 05/18/2024 1:36 AM EDT [facility] Basophils Absolute 0.08 0.00 - 0.10 10*3/uL LAB HEMATOLOGY METHOD 05/18/2024 1:36 AM EDT [facility] Immature Granulocytes Absolute 0.27(H) 0.00 - 0.06 10*3/uL LAB HEMATOLOGY METHOD 05/18/2024 1:36 AM EDT [facility] Blood Arterial blood specimen / Unknown Venipuncture / Unknown 05/18/2024 12:20 AM EDT 05/18/2024 12:25 AM EDT Narrative [facility] - 05/18/2024 1:36 AM EDT Therapeutic decision making should be based on absolute values, rather than percentages. us Maite Austin MD LAB BLOOD ORDERABLES Final Resu lt [facility] [address] [place] [address] * (ABNORMAL) POCT glucose meter (05/18/2024 12:19 AM EDT) POCT Glucose 109(H) 74 - 99 mg/dL 05/18/2024 12:21 AM EDT [facility] Comment:Accuracy of a glucos [...] Comment 05/18/2024 12:21 AM EDT [facility] J[employer] 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 Linda Amor 05/19/19 12:21 AM EDT [facility] Device ID [id number] 05/18/2024 12:21 AM EDT [facility] Specimen Type POC Arterial 05/18/2024 12:21 AM EDT [facility] Blood Arterial blood specimen / Unknown 05/18/2024 12:19 AM EDT 05/18/2024 12:21 AM EDT us Maite Austin MD LAB POINT OF CARE TE ST DOCKED DEVICE UNSOLICITED RESULTS Final Result Performing Organization Address City/[facility] Co de Phone Number [facility] [address] [place] [address] * Methicillin Resistant Staphylococcus aureus (MRSA) by PCR (05/17/2024 10:58 PM EDT) Pathologist [facility] Methicillin Resistant Staphylococcus aureus (MRSA) by PCR Not Detected Not Detected 05/18/2024 12:44 AM EDT [facility] Swab Both anterior nares / Unknown Non-blood Collection / Unknown 05/17/2024 10:58 PM EDT 05/17/2024 11:21 PM EDT Narrative [facility] - 05/18/2024 12:44 AM EDT This [...] AL ORDERABLES Final Result Performing Organization Address City/[facility]/ZIP Co de Phone Number [facility] [address] [place] [address] * POCT glucose meter (05/17/2024 7:24 PM [...] Comment 05/17/2024 7:48 PM EDT [facility] [employer] 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 Linda Amor 05/18/19 7:48 PM EDT [facility] LAB Device ID [id number] 05/17/2024 7:48 PM EDT [facility] Specimen Type POC Arterial 05/17/2024 7:48 PM EDT [facility] Blood Arterial blood specimen / Unknown 05/17/2024 7:24 PM EDT 05/17/2024 7:48 PM EDT Maite Austin MD LAB POINT OF CARE TE ST DOCKED DEVICE UNSOLICITED RESULTS Final Result [facility] [address] [place] [address] * (ABNORMAL) CBC and differential (05/17/2024 6:13 PM EDT) WBC Count 13.62(H) 3.70 - 10.30 10*3/uL LAB HEMATOLOGY METHOD 05/17/2024 7:48 PM EDT [facility] RBC Count 3.35(L) 3.90 - 5.20 10*6/uL LAB HEMATOLOGY METHOD 05/17/2024 7:48 PM EDT [facility] HGB 9.7(L) 11.2 - 15.7 g/dL LAB HEMATOLOGY METHOD 05/17/2024 7:48 PM EDT [facility] HCT 29.7(L) 34.0 - 45.0 % LAB HEMATOLOGY METHOD 05/17/2024 7:48 PM EDT [facility] Platelet Count 607(H) 155 - 369 10*3/uL LAB HEMATOLOGY METHOD 05/17/2024 7:48 PM EDT [facility] MCV 89 79 - 98 fL LAB HEMATOLOGY METHOD 05/17/2024 7:48 PM EDT [facility] MCH 29.0 26.0 - 32.0 pg LAB HEMATOLOGY METHOD 05/17/2024 7:48 PM EDT [facility] MCHC 32.7 30.7 - 35.5 g/dL LAB HEMATOLOGY METHOD 05/17/2024 7:48 PM EDT [facility] RDW 17.2(H) 11.5 - 14.5 % LAB HEMATOLOGY METHOD 05/17/2024 7:48 PM EDT [facility] MPV 10.1 8.8 - 12.5 fL LAB HEMATOLOGY METHOD 05/17/2024 7:48 PM EDT [facility] nRBC 0.1(H) <=0.0 per 100 WBCs LAB HEMATOLOGY METHOD 05/17/2024 7:48 PM EDT [facility] Differential Type Automated LAB HEMATOLOGY METHOD 05/17/2024 7:48 PM EDT [facility] Neutrophils % 80 % LAB HEMATOLOGY METHOD 05/17/2024 7:48 PM EDT [facility] Lymphocytes % 9 % LAB HEMATOLOGY METHOD 05/17/2024 7:48 PM EDT [facility] Monocytes % 8 % LAB HEMATOLOGY METHOD 05/17/2024 7:48 PM EDT [facility] Eosinophils % 0 % LAB HEMATOLOGY METHOD 05/17/2024 7:48 PM EDT [facility] Basophils % 0 % LAB HEMATOLOGY METHOD 05/17/2024 7:48 PM EDT [facility] Immature Granulocytes % 3 % LAB HEMATOLOGY METHOD 05/17/2024 7:48 PM EDT [facility] Neutrophils Absolute 10.86(H) 1.60 - 6.10 10*3/uL LAB HEMATOLOGY METHOD 05/17/2024 7:48 PM EDT [facility] Lymphocytes Absolute 1.27 1.20 - 3.90 10*3/uL LAB HEMATOLOGY METHOD 05/17/2024 7:48 PM EDT [facility] Monocytes Absolute 1.04(H) 0.30 - 0.90 10*3/uL LAB HEMATOLOGY METHOD 05/17/2024 7:48 PM EDT [facility] Eosinophils Absolute 0.04 0.00 - 0.50 10*3/uL LAB HEMATOLOGY METHOD 05/17/2024 7:48 PM EDT [facility] Basophils Absolute 0.06 0.00 - 0.10 10*3/uL LAB HEMATOLOGY METHOD 05/17/2024 7:48 PM EDT [facility] Immature Granulocytes Absolute 0.35(H) 0.00 - 0.06 10*3/uL LAB HEMATOLOGY METHOD 05/17/2024 7:48 PM EDT [facility] Blood Venous blood specimen / Unknown Venipuncture / Unknown 05/17/2024 6:13 PM EDT 05/17/2024 6:32 PM EDT Narrative [facility] - 05/17/2024 7:48 PM EDT Therapeutic decision making should be based on absolute values, rather than percentages. us Maite Austin MD LAB BLOOD ORDERABLES Final Resu lt Performing Organization Address City/[facility]/ZIP Co de Phone Number [facility] [address] [place] [address] * AFB Blood Culture (05/17/2024 6:13 PM EDT) AFB Culture No Mycobacterial Growth at 6 Weeks 07/06/2024 5:16 PM EDT [facility] Blood Venous blood specimen / Unknown Venipuncture / Unknown 05/17/2024 6:13 PM EDT 05/17/2024 6:32 PM EDT us Lora Llanes APRN LAB MICROBIOLOGY - GENERAL ORDERABLES Final Result Performing Organization Address City/[facility]/ZIP Co de Phone Number [facility] [address] [place] [address] * Fungal Blood Culture (05/17/2024 6:13 PM EDT) Culture No Fungal Growth at 6 Weeks 07/07/2024 11:43 AM EDT [facility] Blood Venous blood specimen / Unknown Venipuncture / Unknown 05/17/2024 6:13 PM EDT 05/17/2024 6:32 PM EDT Lora Llanes APRN LAB MICROBIOLOGY - GENERAL ORDERABLES Final Result [facility] [address] [place] [address] * Beta Glucan (Fungitel), Serum (05/17/2024 6:13 PM EDT) [facility] Signature Beta Glucan (Fungitell) 43 <80 pg/mL 05/19/2024 4:58 PM EDT [facility] ([facility]) Comment: Interpretation: The Fungitell assay does not detect certain fungal species such as the genus Cryptococcus (Rica et al. 1991) which produces very low levels of (1-3)-Jgpl-Y-Vyilik. The assay also does not detect the Zygomycetes such as Absidia, Mucor and Rhizopus (Stacey et al. 1994) which are not known to produce (1-3)-Dwhb-R-Ucoxme. In addition, the yeast phase of Blastomyces dermatitidis produces little (1-3)-Tijm-A-Djmejz and may not be detected by the [...] characteristics for these modifications were determined by [employer]. If sample result is greater than 500 pg/mL, physician may order a titer of the sample. Please contact [facility] if you would like to order a retest of this sample to obtain an actual value. Samples are held for 1 week after initial testing date. Testing Performed at: [facility] [address] [place] [address], [address] [place] [address] Mannequin Sander And Finisher: Clayton Mata, PhD [facility] # [id number] FLAG Interpretation: A = Abnormal, H = High, L = Low Blood Venous blood specimen / Unknown Venipuncture / Unknown 05/17/2024 6:13 PM EDT 05/17/2024 6:27 PM EDT Narrative [facility]AL[facility]) - 05/19/2024 4:58 PM EDT Release to patient in [facility]->Immediate us Lora Llanes ADMISSIONS SUPERVISOR LAB BLOOD ORDERABLES Final Result [facility] GALAVIZ) * [facility], E/M 30-74 MINUTES (05/17/2024 4:40 [...] LAB HEMATOLOGY METHOD 05/17/2024 3:27 PM EDT [facility] pCO2, Arterial 28(L) 35 - 48 mmHg LAB HEMATOLOGY METHOD 05/17/2024 3:27 PM EDT [facility] pO2, Arterial 114(H) 83 - 108 mmHg LAB HEMATOLOGY METHOD 05/17/2024 3:27 PM EDT [facility] SO2, Measured, Arterial 98 94 - 98 % LAB HEMATOLOGY METHOD 05/17/2024 3:27 PM EDT [facility] Base Excess, Arterial -5.0(L) -2.0 - 3.0 mmol/L LAB HEMATOLOGY METHOD 05/17/2024 3:27 PM EDT [facility] Bicarbonate, Calculated, Arterial 18(L) 22 - 26 mmol/L LAB HEMATOLOGY METHOD 05/17/2024 3:27 PM EDT [facility] Hematocrit, Whole Blood 31.9(L) 34.0 - 45.0 % LAB HEMATOLOGY METHOD 05/17/2024 3:27 PM EDT [facility] Sodium, Whole Blood 146(H) 136 - 145 mmol/L LAB HEMATOLOGY METHOD 05/17/2024 3:27 PM EDT [facility] Potassium, Whole Blood 3.9 3.6 - 4.9 mmol/L LAB HEMATOLOGY METHOD 05/17/2024 3:27 PM EDT [facility] Chloride, Whole Blood 118(H) 97 - 107 mmol/L LAB HEMATOLOGY METHOD 05/17/2024 3:27 PM EDT [facility] Glucose, Whole Blood 67(L) 74 - 99 mg/dL LAB HEMATOLOGY METHOD 05/17/2024 3:27 PM EDT [facility] Ionized Calcium, Whole Blood 4.2(L) 4.6 - 5.1 mg/dL LAB HEMATOLOGY METHOD 05/17/2024 3:27 PM EDT [facility] Lactate, Arterial, Whole Blood 1.3 0.5 - 1.6 mmol/L LAB HEMATOLOGY METHOD 05/17/2024 3:27 PM EDT [facility] Blood Arterial blood specimen / Unknown Arterial Puncture / Unknown 05/17/2024 3:14 PM EDT 05/17/2024 3:26 PM EDT us Maite Austin MD LAB BLOOD ORDERABLES Final Resu lt [facility] [address] [place] [address] * (ABNORMAL) Procalcitonin (05/17/2024 3:08 PM EDT) Procalcitonin, Plasma 0.46(H) <0.09 ng/mL 05/17/2024 7:40 PM EDT [facility] Blood Venous blood specimen / Unknown Venipuncture / Unknown 05/17/2024 3:08 PM EDT 05/17/2024 3:37 PM EDT Narrative [facility] - 05/17/2024 7:40 PM EDT Procalcitonin [...] predict 28 day mortality risk. Please consult [email or web address] for more information. Test performed at [facility], [facility] Laboratory. us Marybel Suarez APRN LAB BLOOD ORDERABLES Fin al Result Performing Organization Address [facility]/ZIP Co de Phone Number [facility] [address] [place] [address] * Phosphorus (05/17/2024 3:08 PM EDT) Phosphorus, Plasma 3.5 2.5 - 4.5 mg/dL 05/17/2024 4:07 PM EDT [facility] Blood Venous blood specimen / Unknown Venipuncture / Unknown 05/17/2024 3:08 PM EDT 05/17/2024 3:37 PM EDT us Maite Austin MD LAB BLOOD ORDERABLES Final Resu lt Performing Organization Address City/[facility]/ZIP Co de Phone Number [facility] [address] [place] [address] * (ABNORMAL) Basic metabolic panel (05/17/2024 3:08 PM EDT) Glucose, Plasma 68(L) 74 - 99 mg/dL 05/17/2024 4:07 PM EDT [facility] BUN, Plasma 14 7 - 21 mg/dL 05/17/2024 4:07 PM EDT [facility] Creatinine, Plasma 0.75 0.60 - 1.10 mg/dL 05/17/2024 4:07 PM EDT [facility] BUN/Creatinine Ratio 19 05/17/2024 4:07 PM EDT [facility] Sodium, Plasma 146(H) 136 - 145 mmol/L 05/17/2024 4:07 PM EDT [facility] Potassium, Plasma 4.1 3.6 - 4.9 mmol/L 05/17/2024 4:07 PM EDT [facility] Chloride, Plasma 115(H) 97 - 107 mmol/L 05/17/2024 4:07 PM EDT [facility] CO2, Plasma 17(L) 22 - 29 mmol/L 05/17/2024 4:07 PM EDT [facility] Anion Gap 14 6 - 16 mmol/L 05/17/2024 4:07 PM EDT [facility] Total Calcium, Plasma 7.4(L) 8.9 - 10.2 mg/dL 05/17/2024 4:07 PM EDT [facility] eGFRcr 94.7 mL/min/1.7 3m*2 05/17/2024 4:07 PM EDT [facility] Comment:Reported eGFRcr in m L/min/1.73m2 is based the CKD-EPI 2020 equation that does not use a race coefficient. Blood Venous blood specimen / Unknown Venipuncture / Unknown 05/17/2024 3:08 PM EDT 05/17/2024 3:37 PM EDT us Maite Austin MD LAB BLOOD ORDERABLES Final Resu lt [facility] [address] [place] [address] * (ABNORMAL) TEG Global Hemostasis with Heparinase (05/17/2024 3:08 PM EDT) R 8.7 4.6 - 9.1 min 05/17/2024 3:56 PM EDT [facility] R, Heparinase 7.2 4.3 - 8.3 min 05/17/2024 3:56 PM EDT [facility] K 2.0 0.8 - 2.1 min 05/17/2024 3:56 PM EDT [facility] Angle 72.5 63.0 - 78.0 degrees 05/17/2024 3:56 PM EDT [facility] MA 72.2(H) 52.0 - 69.0 mm 05/17/2024 3:56 PM EDT [facility] MA, Rapid 74.4(H) 52.0 - 70.0 mm 05/17/2024 3:56 PM EDT [facility] MA, Fibrinogen 48.4(H) 15.0 - 32.0 mm 05/17/2024 3:56 PM EDT [facility] FLEV 883.2(H) 278.0 - 581.0 mg/dl 05/17/2024 3:56 PM EDT [facility] Blood Venous blood specimen / Unknown Venipuncture / Unknown 05/17/2024 3:08 PM EDT 05/17/2024 3:26 PM EDT us Maite Austin MD LAB BLOOD ORDERABLES Final Resu lt [facility] [address] [place] [address] * Anti Xa Level Unfractionated Heparin (05/17/2024 3:08 PM EDT) Anti Xa Level Unfractionated Heparin <0.11 <1.00 IU/mL LAB COAGULATION METHOD 05/17/2024 4:06 PM EDT [facility] Blood Venous blood specimen / Unknown Venipuncture / Unknown 05/17/2024 3:08 PM EDT 05/17/2024 3:37 PM EDT Narrative [facility] - 05/17/2024 4:06 PM EDT Therapeutic Range: UFH Full Dose and ACS/AR protocols*: 0.30 - 0.70 IU/mL UFH Low Dose protocol*: 0.25 - 0.50 IU/mL UFH prophylaxis: Not established us Maite Austin MD LAB BLOOD ORDERABLES Final Resu lt Performing Organization Address City/[facility]/ZIP Co de Phone Number [facility] [address] [place] [address] * (ABNORMAL) Protime-INR (05/17/2024 3:08 PM EDT) Prothrombin Time 20.2(H) 12.0 - 14.3 sec LAB COAGULATION METHOD 05/17/2024 4:06 PM EDT [facility] INR 1.7(H) 0.9 - 1.1 LAB COAGULATION METHOD 05/17/2024 4:06 PM EDT [facility] Blood Venous blood specimen / Unknown Venipuncture / Unknown 05/17/2024 3:08 PM EDT 05/17/2024 3:37 PM EDT Narrative [facility] - 05/17/2024 4:06 PM EDT OPTIMAL INR RANGES FOR PATIENT ON ORAL ANTICOAGULANT THERAPY Prevention of venous thromboembolism INR 2.0 to 3.0 In patients with heart disease: Atrial fibrillation INR 2.0 to 3.0 Valvular heart disease INR 2.0 to 3.0 Tissue heart valves INR 2.0 to 3.0 Mechanical prosthetic valves INR 2.5 to 3.5 Prevention of recurrent AR INR 2.5 to 3.5 us Maite Austin MD LAB BLOOD ORDERABLES Final Resu lt Performing Organization Address City/[facility]/ZIP Co de Phone Number [facility] [address] [place] [address] * (ABNORMAL) APTT (05/17/2024 3:08 PM EDT) aPTT 41(H) 25 - 35 sec LAB COAGULATION METHOD 05/17/2024 4:06 PM EDT [facility] Blood Venous blood specimen / Unknown Venipuncture / Unknown 05/17/2024 3:08 PM EDT 05/17/2024 3:37 PM EDT us Maite Austin MD LAB BLOOD ORDERABLES Final Resu lt [facility] [address] [place] [address] * (ABNORMAL) CBC W/O Differential (05/17/2024 3:08 PM EDT) WBC Count 13.08(H) 3.70 - 10.30 10*3/uL LAB HEMATOLOGY METHOD 05/17/2024 4:09 PM EDT [facility] RBC Count 3.56(L) 3.90 - 5.20 10*6/uL LAB HEMATOLOGY METHOD 05/17/2024 4:09 PM EDT [facility] HGB 10.3(L) 11.2 - 15.7 g/dL LAB HEMATOLOGY METHOD 05/17/2024 4:09 PM EDT [facility] HCT 31.9(L) 34.0 - 45.0 % LAB HEMATOLOGY METHOD 05/17/2024 4:09 PM EDT [facility] Platelet Count 615(H) 155 - 369 10*3/uL LAB HEMATOLOGY METHOD 05/17/2024 4:09 PM EDT [facility] MCV 90 79 - 98 fL LAB HEMATOLOGY METHOD 05/17/2024 4:09 PM EDT [facility] MCH 28.9 26.0 - 32.0 pg LAB HEMATOLOGY METHOD 05/17/2024 4:09 PM EDT [facility] MCHC 32.3 30.7 - 35.5 g/dL LAB HEMATOLOGY METHOD 05/17/2024 4:09 PM EDT [facility] RDW 17.1(H) 11.5 - 14.5 % LAB HEMATOLOGY METHOD 05/17/2024 4:09 PM EDT [facility] MPV 10.3 8.8 - 12.5 fL LAB HEMATOLOGY METHOD 05/17/2024 4:09 PM EDT [facility] nRBC 0.2(H) <=0.0 per 100 WBCs LAB HEMATOLOGY METHOD 05/17/2024 4:09 PM EDT [facility] Blood Venous blood specimen / Unknown Venipuncture / Unknown 05/17/2024 3:08 PM EDT 05/17/2024 4:00 PM EDT us Maite Austin MD LAB BLOOD ORDERABLES Final Resu lt Performing Organization Address City/[facility]/ZIP Co de Phone Number [facility] [address] [place] [address] * (ABNORMAL) Magnesium (05/17/2024 3:08 PM EDT) [facility] Magnesium, Plasma 1.8(L) 1.9 - 2.4 mg/dL 05/17/2024 4:07 PM EDT [facility] Blood Venous blood specimen / Unknown Venipuncture / Unknown 05/17/2024 3:08 PM EDT 05/17/2024 3:37 PM EDT us Trinity Yousif APRN LAB BLOOD ORDERABLES Final Res ult Performing Organization Address [facility] Co de Phone Number [facility] [address] [place] [address] * Influenza A,B & Respiratory Syncytial Virus by PCR (05/17/2024 3:08 PM EDT) [facility] Influenza A Virus PCR Result Not Detected Not Detected 05/18/2024 7:52 AM EDT [facility] Influenza B Virus PCR Result Not Detected Not Detected 05/18/2024 7:52 AM EDT [facility] Respiratory Syncytial Virus (RSV) PCR Result Not Detected Not Detected 05/18/2024 7:52 AM EDT [facility] Swab Nasopharyngeal structure / Unknown Non-blood Collection / Unknown 05/17/2024 3:08 PM EDT 05/17/2024 3:25 PM EDT us Dulce Alamo ADMISSIONS SUPERVISOR LAB MICROBIOLOGY - GENERAL O RDERABLES Final Result Performing Organization Address City/[facility]/ZIP Co de Phone Number [facility] [address] [place] [address] * (ABNORMAL) Urinalysis with reflex microscopic (Culture NOT Included) (05/17/2024 3:07 PM EDT) Color, Urine Dark Yellow LAB URINALYSIS - AUTOMATED METHOD 05/17/2024 4:19 PM EDT [facility] Clarity, Urine Clear LAB URINALYSIS - AUTOMATED METHOD 05/17/2024 4:19 PM EDT [facility] Spec [place], Urine 1.022 1.005 - 1.030 LAB URINALYSIS - AUTOMATED METHOD 05/17/2024 4:19 PM EDT [facility] pH, Urine 5.5 5.0 - 8.0 LAB URINALYSIS - AUTOMATED METHOD 05/17/2024 4:19 PM EDT [facility] Protein, Urine 30(A) Negative mg/dL LAB URINALYSIS - AUTOMATED METHOD 05/17/2024 4:19 PM EDT [facility] Glucose, Urine Negative Negative mg/dL LAB URINALYSIS - AUTOMATED METHOD 05/17/2024 4:19 PM EDT [facility] Ketones, Urine 40(A) Negative mg/dL LAB URINALYSIS - AUTOMATED METHOD 05/17/2024 4:19 PM EDT [facility] Blood, Urine Negative Negative LAB URINALYSIS - AUTOMATED METHOD 05/17/2024 4:19 PM EDT [facility] Bilirubin, Urine Negative Negative LAB URINALYSIS - AUTOMATED METHOD 05/17/2024 4:19 PM EDT [facility] Urobilinogen, Urine 1.0 0.2 to 1.0 mg/dL LAB URINALYSIS - AUTOMATED METHOD 05/17/2024 4:19 PM EDT [facility] Leukocytes, Urine Negative Negative LAB URINALYSIS - AUTOMATED METHOD 05/17/2024 4:19 PM EDT [facility] Nitrite, Urine Negative Negative LAB URINALYSIS - AUTOMATED METHOD 05/17/2024 4:19 PM EDT [facility] Urine Urine specimen obtained by clean catch procedure / Unknown Non-blood Collection / Unknown 05/17/2024 3:07 PM EDT 05/17/2024 4:00 PM EDT Maite Austin MD LAB URINE ORDERABLES Final Resu lt Performing Organization Address [facility]/ZIP Co de Phone Number [facility] [address] [place] [address] * (ABNORMAL) Urine Culture (05/17/2024 3:07 PM EDT) Culture 100 CFU/mL Normal Urogenital [place](A) 05/18/2024 12:42 PM EDT [facility] Urine Urine specimen obtained by clean catch procedure / Unknown Non-blood Collection / Unknown 05/17/2024 3:07 PM EDT 05/17/2024 3:44 PM EDT Maite Austin MD LAB MICROBIOLOGY - GENERAL ORDE RABLES Final Result Performing Organization Address [facility]/[place] [address] * Transfuse RBC (05/17/2024 2:46 PM EDT) Dulce Alamo APRN BLOOD TRANSFUSION ORDERABLES Final Result * Transfuse RBC: 1 Units (05/17/2024 2:46 PM EDT) Dulce Alamo APRN BLOOD TRANSFUSION ORDERABLES Final Result * Lactate, venous (05/17/2024 11:16 AM EDT) Lactate, Venous, Whole Blood 1.4 0.5 - 2.2 mmol/L LAB HEMATOLOGY METHOD 05/17/2024 11:29 AM EDT [facility] Blood Venous blood specimen / Unknown Venipuncture / Unknown 05/17/2024 11:16 AM EDT 05/17/2024 11:27 AM EDT Maite Austin MD LAB BLOOD ORDERABLES Final Resu lt Performing Organization Address City/[facility]/ZIP Co de Phone Number [facility] [address] [place] [address] * Blood Culture (Aerobic/Anaerobet Set) (05/17/2024 11:16 AM EDT) Culture No growth at day 5 ELI 05/22/2024 12:01 PM EDT [facility] Blood Structure of right wrist region / Unknown Venipuncture / Unknown 05/17/2024 11:16 AM EDT 05/17/2024 11:30 AM EDT us Maite Austin MD LAB MICROBIOLOGY - GENERAL ORDE RABIRA Final Result Performing Organization Address City/[facility]/ZIP Co de Phone Number [facility] [address] [place] [address] * (ABNORMAL) POCT glucose meter (05/17/2024 10:59 AM EDT) [facility] POCT Glucose 68(L) 74 - 99 mg/dL [...] Comment 05/17/2024 11:01 AM EDT [facility] J[employer] 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 Shira Grant 05/18/19 11:01 AM EDT [facility] Device ID [id number] 05/17/2024 11:01 AM EDT [facility] Specimen Type POC Capillary 05/17/2024 11:01 AM EDT [facility] Blood Capillary blood specimen / Unknown 05/17/2024 10:59 AM EDT 05/17/2024 11:01 AM EDT us Maite Austin MD LAB POINT OF CARE TE ST DOCKED DEVICE UNSOLICITED RESULTS Final Result Performing Organization Address City/[facility]/ZIP Co de Phone Number [facility] [address] [place] [address] * (ABNORMAL) CBC W/O Differential (05/17/2024 10:29 AM EDT) [facility] WBC Count 16.99(H) 3.70 - 10.30 10*3/uL LAB HEMATOLOGY METHOD 05/17/2024 2:07 PM EDT [facility] RBC Count 3.12(L) 3.90 - 5.20 10*6/uL LAB HEMATOLOGY METHOD 05/17/2024 2:07 PM EDT [facility] HGB 9.2(L) 11.2 - 15.7 g/dL LAB HEMATOLOGY METHOD 05/17/2024 2:07 PM EDT [facility] HCT 29.1(L) 34.0 - 45.0 % LAB HEMATOLOGY METHOD 05/17/2024 2:07 PM EDT [facility] Platelet Count 639(H) 155 - 369 10*3/uL LAB HEMATOLOGY METHOD 05/17/2024 2:07 PM EDT [facility] MCV 93 79 - 98 fL LAB HEMATOLOGY METHOD 05/17/2024 2:07 PM EDT [facility] MCH 29.5 26.0 - 32.0 pg LAB HEMATOLOGY METHOD 05/17/2024 2:07 PM EDT [facility] MCHC 31.6 30.7 - 35.5 g/dL LAB HEMATOLOGY METHOD 05/17/2024 2:07 PM EDT [facility] RDW 16.8(H) 11.5 - 14.5 % LAB HEMATOLOGY METHOD 05/17/2024 2:07 PM EDT [facility] MPV 10.8 8.8 - 12.5 fL LAB HEMATOLOGY METHOD 05/17/2024 2:07 PM EDT [facility] nRBC 0.0 <=0.0 per 100 WBCs LAB HEMATOLOGY METHOD 05/17/2024 2:07 PM EDT [facility] Blood Venous blood specimen / Unknown Venipuncture / Unknown 05/17/2024 10:29 AM EDT 05/17/2024 10:29 AM EDT us Trinity Yousif APRN LAB BLOOD ORDERABLES Final Res ult [facility] [address] [place] [address] * (ABNORMAL) WBC Differential (05/17/2024 10:29 AM EDT) Differential Type Automated LAB HEMATOLOGY METHOD 05/17/2024 11:59 AM EDT [facility] Neutrophils % 76 % LAB HEMATOLOGY METHOD 05/17/2024 11:59 AM EDT [facility] Lymphocytes % 10 % LAB HEMATOLOGY METHOD 05/17/2024 11:59 AM EDT [facility] Monocytes % 10 % LAB HEMATOLOGY METHOD 05/17/2024 11:59 AM EDT [facility] Eosinophils % 1 % LAB HEMATOLOGY METHOD 05/17/2024 11:59 AM EDT [facility] Basophils % 0 % LAB HEMATOLOGY METHOD 05/17/2024 11:59 AM EDT [facility] Immature Granulocytes % 3 % LAB HEMATOLOGY METHOD 05/17/2024 11:59 AM EDT [facility] Immature Granulocytes Absolute 0.47(H) 0.00 - 0.06 10*3/uL LAB HEMATOLOGY METHOD 05/17/2024 11:59 AM EDT [facility] Neutrophils Absolute 12.68(H) 1.60 - 6.10 10*3/uL LAB HEMATOLOGY METHOD 05/17/2024 11:59 AM EDT [facility] Lymphocytes Absolute 1.71 1.20 - 3.90 10*3/uL LAB HEMATOLOGY METHOD 05/17/2024 11:59 AM EDT [facility] Monocytes Absolute 1.62(H) 0.30 - 0.90 10*3/uL LAB HEMATOLOGY METHOD 05/17/2024 11:59 AM EDT [facility] Basophils Absolute 0.07 0.00 - 0.10 10*3/uL LAB HEMATOLOGY METHOD 05/17/2024 11:59 AM EDT [facility] Eosinophils Absolute 0.11 0.00 - 0.50 10*3/uL LAB HEMATOLOGY METHOD 05/17/2024 11:59 AM EDT [facility] Blood Venous blood specimen / Unknown Venipuncture / Unknown 05/17/2024 10:29 AM EDT 05/17/2024 10:29 AM EDT us Dulce Alamo APRN LAB BLOOD ORDERABLES Final R esult [facility] [address] [place] [address] * Zahida Vasquez (05/17/2024 10:29 AM EDT) Pathologist [facility] Extra Hold for add-ons 05/17/2024 1:01 PM EDT [facility] Comment:Auto resulted. Blood Venous blood specimen / Unknown Venipuncture / Unknown 05/17/2024 10:29 AM EDT 05/17/2024 10:29 AM EDT us Maite Austin MD LAB BLOOD ORDERABLES Final Resu lt Performing Organization Address City/[facility]/ZIP Co de Phone Number [facility] [address] [place] [address] * (ABNORMAL) Lipase (05/17/2024 10:23 AM EDT) [facility] Lipase, Plasma 93(H) 19 - 63 U/L 05/17/2024 2:58 PM EDT [facility] Blood Venous blood specimen / Unknown Venipuncture / Unknown 05/17/2024 10:23 AM EDT 05/17/2024 10:28 AM EDT us Maite Austin MD LAB BLOOD ORDERABLES Final Resu lt Performing Organization Address [facility]/ZIP Co de Phone Number [facility] [address] [place] [address] * (ABNORMAL) Comprehensive metabolic panel (05/17/2024 10:23 AM EDT) [facility] Glucose, Plasma 58(L) 74 - 99 mg/dL 05/17/2024 2:08 PM EDT [facility] BUN, Plasma 13 7 - 21 mg/dL 05/17/2024 2:08 PM EDT [facility] Creatinine, Plasma 0.79 0.60 - 1.10 mg/dL 05/17/2024 2:08 PM EDT [facility] BUN/Creatinine Ratio 16 05/17/2024 2:08 PM EDT [facility] Sodium, Plasma 147(H) 136 - 145 mmol/L 05/17/2024 2:08 PM EDT [facility] Potassium, Plasma 4.0 3.6 - 4.9 mmol/L 05/17/2024 2:08 PM EDT [facility] Chloride, Plasma 116(H) 97 - 107 mmol/L 05/17/2024 2:08 PM EDT [facility] CO2, Plasma 14(L) 22 - 29 mmol/L 05/17/2024 2:08 PM EDT [facility] Anion Gap 17(H) 6 - 16 mmol/L 05/17/2024 2:08 PM EDT [facility] Total Calcium, Plasma 7.4(L) 8.9 - 10.2 mg/dL 05/17/2024 2:08 PM EDT [facility] Total Protein 6.1(L) 6.3 - 7.9 g/dL 05/17/2024 2:08 PM EDT [facility] Albumin, Plasma 2.4(L) 3.5 - 5.2 g/dL 05/17/2024 2:08 PM EDT [facility] AST, Plasma 83(H) 10 - 35 U/L 05/17/2024 2:08 PM EDT [facility] ALT, Plasma 37(H) 10 - 35 U/L 05/17/2024 2:08 PM EDT [facility] Alkaline Phosphatase, Plasma 127(H) 35 - 104 U/L 05/17/2024 2:08 PM EDT [facility] Total Bilirubin, Plasma 0.7 0.2 - 1.1 mg/dL 05/17/2024 2:08 PM EDT [facility] eGFRcr 89.0 mL/min/1.7 3m*2 05/17/2024 2:08 PM EDT [facility] Comment:Reported eGFRcr in m L/min/1.73m2 is based the CKD-EPI 2020 equation that does not use a race coefficient. Blood Venous blood specimen / Unknown Venipuncture / Unknown 05/17/2024 10:23 AM EDT 05/17/2024 10:28 AM EDT us Trinity Yousif ADMISSIONS SUPERVISOR LAB BLOOD ORDERABLES Final Res ult [facility] [address] [place] [address] * (ABNORMAL) C-reactive protein (05/17/2024 10:23 AM EDT) CRP, Plasma 225.3(H) <=8.0 mg/L 05/17/2024 2:08 PM EDT [facility] Blood Venous blood specimen / Unknown Venipuncture / Unknown 05/17/2024 10:23 AM EDT 05/17/2024 10:28 AM EDT Narrative [facility] - 05/17/2024 2:08 PM EDT This CRP test is appropriate for assessment of infection, systemic inflammation and/or tissue injury. To assess cardiovascular disease risk order high sensitivity CRP (CRPH). us Trinity Yousif ADMISSIONS SUPERVISOR LAB BLOOD ORDERABLES Final Res ult Performing Organization Address City/[facility]/ZIP Co de Phone Number [facility] [address] [place] [address] * (ABNORMAL) Magnesium (05/17/2024 10:23 AM EDT) Magnesium, Plasma 1.8(L) 1.9 - 2.4 mg/dL 05/17/2024 11:05 AM EDT [facility] Blood Venous blood specimen / Unknown Venipuncture / Unknown 05/17/2024 10:23 AM EDT 05/17/2024 10:28 AM EDT us Dulce Alamo ADMISSIONS SUPERVISOR LAB BLOOD ORDERABLES Final R esult [facility] [address] [place] [address] * (ABNORMAL) Basic metabolic panel (05/17/2024 10:23 AM EDT) Glucose, Plasma 69(L) 74 - 99 mg/dL 05/17/2024 11:05 AM EDT [facility] BUN, Plasma 13 7 - 21 mg/dL 05/17/2024 11:05 AM EDT [facility] Creatinine, Plasma 0.77 0.60 - 1.10 mg/dL 05/17/2024 11:05 AM EDT [facility] BUN/Creatinine Ratio 17 05/17/2024 11:05 AM EDT [facility] Sodium, Plasma 150(H) 136 - 145 mmol/L 05/17/2024 11:05 AM EDT [facility] Potassium, Plasma 4.1 3.6 - 4.9 mmol/L 05/17/2024 11:05 AM EDT [facility] Chloride, Plasma 118(H) 97 - 107 mmol/L 05/17/2024 11:05 AM EDT [facility] CO2, Plasma 16(L) 22 - 29 mmol/L 05/17/2024 11:05 AM EDT [facility] Anion Gap 16 6 - 16 mmol/L 05/17/2024 11:05 AM EDT [facility] Total Calcium, Plasma 7.4(L) 8.9 - 10.2 mg/dL 05/17/2024 11:05 AM EDT [facility] eGFRcr 91.8 mL/min/1.7 3m*2 05/17/2024 11:05 AM EDT [facility] Comment:Reported eGFRcr in m L/min/1.73m2 is based the CKD-EPI 2020 equation that does not use a race coefficient. Blood Venous blood specimen / Unknown Venipuncture / Unknown 05/17/2024 10:23 AM EDT 05/17/2024 10:28 AM EDT us Dulce Alamo APRN LAB BLOOD ORDERABLES Final R esult [facility] [address] [place] [address] * Prepare Leukocyte Reduced RBC: 1 Units (05/17/2024 9:04 AM EDT) Product Code [id number] BLOO D BANK Dispense Status Transfused BLOOD BANK Blood Expiration Date [id number] BLOOD BANK Unit Number [id number] B LOOD BANK Product Blood Type 1700 BLOOD BANK Blood Type B- BLOOD BANK Crossmatch Compatible BLOOD BANK Other us Dulce Alamo ADMISSIONS SUPERVISOR BLOOD BANK PRODUCT ORDERABLE S Final Result Performing Organization Address [facility] de Phone Number BLOOD BANK [address] * POCT glucose meter (05/17/2024 6:04 [...] for testing. Comment 05/17/2024 6:07 AM EDT [facility] 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 Leonarda Londono 6:07 AM EDT [facility] Device ID [id number] 05/17/2024 6:07 AM EDT [facility] Specimen Type POC Capillary 05/17/2024 6:07 AM EDT [facility] Blood Capillary blood specimen / Unknown 05/17/2024 6:04 AM EDT 05/17/2024 6:07 AM EDT us Maite Austin MD LAB POINT OF CARE TE ST DOCKED DEVICE UNSOLICITED RESULTS Final Result Performing Organization Address [facility] Co de Phone Number [facility] [address] [place] [address] * XR Abdomen 1 View (05/17/2024 5:51 [...] - 99 mg/dL 05/17/2024 2:15 AM EDT [facility] Comment:Accuracy of [...] for testing. Comment 05/17/2024 2:15 AM EDT [facility] 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 Yael Dominguez 025 2:15 AM EDT [facility] Device ID [id number] 05/17/2024 2:15 AM EDT [facility] Specimen Type POC Capillary 05/17/2024 2:15 AM EDT [facility] Blood Capillary blood specimen / Unknown 05/17/2024 2:13 AM EDT 05/17/2024 2:15 AM EDT Maite Austin MD LAB POINT OF CARE TE ST DOCKED DEVICE UNSOLICITED RESULTS Final Result Performing Organization Address City/State/[facility] Co de Phone Number [facility] [address] [place] [address] * POCT glucose meter (05/17/2024 1:03 AM EDT) [facility] POCT Glucose 77 74 - 99 mg/dL [...] 05/17/2024 1:06 AM EDT [facility] [employer] 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 Leonarda Londono 1:06 AM EDT [facility] Device ID [id number] 05/17/2024 1:06 AM EDT [facility] Specimen Type POC Capillary 05/17/2024 1:06 AM EDT [facility] Blood Capillary blood specimen / Unknown 05/17/2024 1:03 AM EDT 05/17/2024 1:06 AM EDT us Maite Austin MD LAB POINT OF CARE TE ST DOCKED DEVICE UNSOLICITED RESULTS Final Result Performing Organization Address City/[facility] Co de Phone Number [facility] [address] [place] [address] * (ABNORMAL) POCT glucose meter (05/16/2024 11:58 [...] Comment 05/16/2024 11:59 PM EDT [facility] [employer] 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 Yael Dominguez 025 11:59 PM EDT [facility] Device ID [id number] 05/16/2024 11:59 PM EDT [facility] Specimen Type POC Capillary 05/16/2024 11:59 PM EDT [facility] Blood Capillary blood specimen / Unknown 05/16/2024 11:58 PM EDT 05/16/2024 11:59 PM EDT us Maite Austin MD LAB POINT OF CARE TE ST DOCKED DEVICE UNSOLICITED RESULTS Final Result Performing Organization Address City/[facility] Co de Phone Number [facility] [address] [place] [address] * POCT glucose meter (05/16/2024 5:47 PM EDT) Pathologist [facility] POCT Glucose 80 74 - 99 mg/dL [...] for testing. Comment 05/16/2024 5:49 PM EDT [facility] 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 Cristel Chen 5:49 PM EDT [facility] Device ID [id number] 05/16/2024 5:49 PM EDT [facility] Specimen Type POC Capillary 05/16/2024 5:49 PM EDT [facility] Blood Capillary blood specimen / Unknown 05/16/2024 5:47 PM EDT 05/16/2024 5:49 PM EDT Maite Austin MD LAB POINT OF CARE TE ST DOCKED DEVICE UNSOLICITED RESULTS Final Result Performing Organization Address City/[facility]/ZIP Co de Phone Number [facility] [address] [place] [address] * POCT glucose meter (05/16/2024 12:10 PM EDT) [facility] POCT Glucose 91 74 - 99 mg/dL [...] for testing. Comment 05/16/2024 12:11 PM EDT [facility] 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 Amanda Miller 025 12:11 PM EDT [facility] Device ID [id number] 05/16/2024 12:11 PM EDT [facility] Specimen Type POC Capillary 05/16/2024 12:11 PM EDT [facility] Blood Capillary blood specimen / Unknown 05/16/2024 12:10 PM EDT 05/16/2024 12:11 PM EDT Maite Austin MD LAB POINT OF CARE TE ST DOCKED DEVICE UNSOLICITED RESULTS Final Result Performing Organization Address City/[facility]/ZIP Co de Phone Number HEALTHCARE LAB [address] [place] [address] * Potassium (05/16/2024 12:05 PM EDT) [facility] Potassium, Plasma 4.1 3.6 - 4.9 mmol/L 05/16/2024 2:03 PM EDT [facility] Blood Venous blood specimen / Unknown Venipuncture / Unknown 05/16/2024 12:05 PM EDT 05/16/2024 12:48 PM EDT us Uriah PHILLIP LAB BLOOD ORDERABLES Final Result [facility] [address] [place] [address] * (ABNORMAL) POCT glucose meter (05/16/2024 5:28 AM EDT) [facility] POCT Glucose 100(H) 74 - 99 mg/dL [...] Comment 05/16/2024 5:30 AM EDT HEALTHCARE LAB [employer] 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 Tiana Miller 05/17/19 5:30 AM EDT HEALTHCARE LAB Device ID [id number] 05/16/2024 5:30 AM EDT HEALTHCARE LAB Specimen Type POC Capillary 05/16/2024 5:30 AM EDT [facility] Blood Capillary blood specimen / Unknown 05/16/2024 5:28 AM EDT 05/16/2024 5:30 AM EDT us Maite Austin MD LAB POINT OF CARE TE ST DOCKED DEVICE UNSOLICITED RESULTS Final Result [facility] [address] [place] [address] * Magnesium (05/16/2024 3:20 AM EDT) [facility] Magnesium, Plasma 2.0 1.9 - 2.4 mg/dL 05/16/2024 3:58 AM EDT [facility] Blood Venous blood specimen / Unknown Venipuncture / Unknown 05/16/2024 3:20 AM EDT 05/16/2024 3:26 AM EDT us Trinity Anne Yousif ARASH LAB BLOOD ORDERABLES Final Res ult [facility] [address] [place] [address] * (ABNORMAL) Comprehensive metabolic panel (05/16/2024 3:20 AM EDT) Glucose, Plasma 99 74 - 99 mg/dL 05/16/2024 3:58 AM EDT [facility] BUN, Plasma 13 7 - 21 mg/dL 05/16/2024 3:58 AM EDT [facility] Creatinine, Plasma 0.91 0.60 - 1.10 mg/dL 05/16/2024 3:58 AM EDT [facility] BUN/Creatinine Ratio 14 05/16/2024 3:58 AM EDT [facility] Sodium, Plasma 144 136 - 145 mmol/L 05/16/2024 3:58 AM EDT [facility] Potassium, Plasma 3.5(L) 3.6 - 4.9 mmol/L 05/16/2024 3:58 AM EDT [facility] Chloride, Plasma 114(H) 97 - 107 mmol/L 05/16/2024 3:58 AM EDT [facility] CO2, Plasma 21(L) 22 - 29 mmol/L 05/16/2024 3:58 AM EDT [facility] Anion Gap 9 6 - 16 mmol/L 05/16/2024 3:58 AM EDT [facility] Total Calcium, Plasma 7.4(L) 8.9 - 10.2 mg/dL 05/16/2024 3:58 AM EDT [facility] Total Protein 5.5(L) 6.3 - 7.9 g/dL 05/16/2024 3:58 AM EDT [facility] Albumin, Plasma 2.2(L) 3.5 - 5.2 g/dL 05/16/2024 3:58 AM EDT [facility] AST, Plasma 60(H) 10 - 35 U/L 05/16/2024 3:58 AM EDT [facility] ALT, Plasma 19 10 - 35 U/L 05/16/2024 3:58 AM EDT [facility] Alkaline Phosphatase, Plasma 121(H) 35 - 104 U/L 05/16/2024 3:58 AM EDT [facility] Total Bilirubin, Plasma 0.6 0.2 - 1.1 mg/dL 05/16/2024 3:58 AM EDT [facility] eGFRcr 75.1 mL/min/1.7 3m*2 05/16/2024 3:58 AM EDT [facility] Comment:Reported eGFRcr in m L/min/1.73m2 is based the CKD-EPI 2020 equation that does not use a race coefficient. Blood Venous blood specimen / Unknown Venipuncture / Unknown 05/16/2024 3:20 AM EDT 05/16/2024 3:26 AM EDT Trinity Yousif APRN LAB BLOOD ORDERABLES Final Res ult [facility] [address] [place] [address] * (ABNORMAL) Hemogram (CBC) (05/16/2024 3:20 AM EDT) WBC Count 20.02(H) 3.70 - 10.30 10*3/uL LAB HEMATOLOGY METHOD 05/16/2024 3:38 AM EDT [facility] RBC Count 3.02(L) 3.90 - 5.20 10*6/uL LAB HEMATOLOGY METHOD 05/16/2024 3:38 AM EDT [facility] HGB 8.8(L) 11.2 - 15.7 g/dL LAB HEMATOLOGY METHOD 05/16/2024 3:38 AM EDT [facility] HCT 27.6(L) 34.0 - 45.0 % LAB HEMATOLOGY METHOD 05/16/2024 3:38 AM EDT [facility] Platelet Count 480(H) 155 - 369 10*3/uL LAB HEMATOLOGY METHOD 05/16/2024 3:38 AM EDT [facility] MCV 91 79 - 98 fL LAB HEMATOLOGY METHOD 05/16/2024 3:38 AM EDT [facility] MCH 29.1 26.0 - 32.0 pg LAB HEMATOLOGY METHOD 05/16/2024 3:38 AM EDT [facility] MCHC 31.9 30.7 - 35.5 g/dL LAB HEMATOLOGY METHOD 05/16/2024 3:38 AM EDT [facility] RDW 17.1(H) 11.5 - 14.5 % LAB HEMATOLOGY METHOD 05/16/2024 3:38 AM EDT [facility] MPV 10.4 8.8 - 12.5 fL LAB HEMATOLOGY METHOD 05/16/2024 3:38 AM EDT [facility] nRBC 0.2(H) <=0.0 per 100 WBCs LAB HEMATOLOGY METHOD 05/16/2024 3:38 AM EDT [facility] Blood Venous blood specimen / Unknown Venipuncture / Unknown 05/16/2024 3:20 AM EDT 05/16/2024 3:26 AM EDT us Trinity Yousif ADMISSIONS SUPERVISOR LAB BLOOD ORDERABLES Final Res ult [facility] [address] [place] [address] * XR Abdomen 1 View (05/16/2024 2:40 [...] MD on 05/16/2024 7:55 AM Trinity Yousif ADMISSIONS SUPERVISOR IMG XR PROCEDURES Final Result * XR [...] 05/16/2024 12:50 AM EDT [facility] 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 Tiana Miller 05/17/19 12:50 AM EDT [facility] Device ID [id number] 05/16/2024 12:50 AM EDT [facility] Specimen Type POC Capillary 05/16/2024 12:50 AM EDT [facility] Blood Capillary blood specimen / Unknown 05/16/2024 12:48 AM EDT 05/16/2024 12:50 AM EDT Maite Austin MD LAB POINT OF CARE TE ST DOCKED DEVICE UNSOLICITED RESULTS Final Result [facility] [address] [place] [address] * (ABNORMAL) POCT glucose meter (05/15/2024 11:38 AM EDT) [facility] POCT Glucose 102(H) 74 - 99 mg/dL [...] Comment 05/15/2024 11:41 AM EDT HEALTHCARE LAB 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 Jame Okeefe 05/15/2024 11:41 AM EDT [facility] Device ID [id number] 05/15/2024 11:41 AM EDT HEALTHCARE LAB Specimen Type POC Capillary 05/15/2024 11:41 AM EDT [facility] Blood Capillary blood specimen / Unknown 05/15/2024 11:38 AM EDT 05/15/2024 11:41 AM EDT Maite Austin MD LAB POINT OF CARE TE ST DOCKED DEVICE UNSOLICITED RESULTS Final Result [facility] [address] [place] [address] * (ABNORMAL) POCT glucose meter (05/15/2024 5:11 AM EDT) [facility] POCT Glucose 108(H) 74 - 99 mg/dL [...] 05/15/2024 5:12 AM EDT [facility] 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 Demadison Betty 025 5:12 AM EDT [facility] Device ID [id number] 05/15/2024 5:12 AM EDT [facility] Specimen Type POC Capillary 05/15/2024 5:12 AM EDT [facility] Blood Capillary blood specimen / Unknown 05/15/2024 5:11 AM EDT 05/15/2024 5:12 AM EDT us Maite Austin MD LAB POINT OF CARE TE ST DOCKED DEVICE UNSOLICITED RESULTS Final Result Performing Organization Address City/State/[facility] Co de Phone Number [facility] [address] [place] [id number] * XR Abdomen 1 View (05/15/2024 2:56 [...] - 99 mg/dL 05/15/2024 2:14 AM EDT [facility] BUN, Plasma 17 7 - 21 mg/dL 05/15/2024 2:14 AM EDT [facility] Creatinine, Plasma 0.90 0.60 - 1.10 mg/dL 05/15/2024 2:14 AM EDT [facility] BUN/Creatinine Ratio 19 05/15/2024 2:14 AM EDT [facility] Sodium, Plasma 145 136 - 145 mmol/L 05/15/2024 2:14 AM EDT [facility] Potassium, Plasma 3.3(L) 3.6 - 4.9 mmol/L 05/15/2024 2:14 AM EDT [facility] Chloride, Plasma 111(H) 97 - 107 mmol/L 05/15/2024 2:14 AM EDT [facility] CO2, Plasma 22 22 - 29 mmol/L 05/15/2024 2:14 AM EDT [facility] Anion Gap 12 6 - 16 mmol/L 05/15/2024 2:14 AM EDT [facility] Total Calcium, Plasma 7.3(L) 8.9 - 10.2 mg/dL 05/15/2024 2:14 AM EDT [facility] Total Protein 5.7(L) 6.3 - 7.9 g/dL 05/15/2024 2:14 AM EDT [facility] Albumin, Plasma 2.4(L) 3.5 - 5.2 g/dL 05/15/2024 2:14 AM EDT [facility] AST, Plasma 68(H) 10 - 35 U/L 05/15/2024 2:14 AM EDT [facility] ALT, Plasma 20 10 - 35 U/L 05/15/2024 2:14 AM EDT [facility] Alkaline Phosphatase, Plasma 129(H) 35 - 104 U/L 05/15/2024 2:14 AM EDT [facility] Total Bilirubin, Plasma 1.0 0.2 - 1.1 mg/dL 05/15/2024 2:14 AM EDT [facility] eGFRcr 76.1 mL/min/1.7 3m*2 05/15/2024 2:14 AM EDT [facility] Comment:Reported eGFRcr in m L/min/1.73m2 is based the CKD-EPI 2020 equation that does not use a race coefficient. Blood Venous blood specimen / Unknown Venipuncture / Unknown 05/15/2024 1:13 AM EDT 05/15/2024 1:20 AM EDT Maite Austin MD LAB BLOOD ORDERABLES Final Resu lt Performing Organization Address City/[facility]/ZIP Co de Phone Number [facility] [address] [place] [address] * Phosphorus (05/15/2024 1:13 AM EDT) Phosphorus, Plasma 3.9 2.5 - 4.5 mg/dL 05/15/2024 2:14 AM EDT [facility] Blood Venous blood specimen / Unknown Venipuncture / Unknown 05/15/2024 1:13 AM EDT 05/15/2024 1:20 AM EDT Maite Austin MD LAB BLOOD ORDERABLES Final Resu lt [facility] [address] [place] [address] * Magnesium (05/15/2024 1:13 AM EDT) Magnesium, Plasma 1.9 1.9 - 2.4 mg/dL 05/15/2024 2:14 AM EDT [facility] Blood Venous blood specimen / Unknown Venipuncture / Unknown 05/15/2024 1:13 AM EDT 05/15/2024 1:20 AM EDT us Maite Austin MD LAB BLOOD ORDERABLES Final Resu lt [facility] [address] [place] [address] * (ABNORMAL) CBC W/O Differential (05/15/2024 1:13 AM EDT) WBC Count 28.49(H) 3.70 - 10.30 10*3/uL LAB HEMATOLOGY METHOD 05/15/2024 3:22 AM EDT [facility] RBC Count 3.02(L) 3.90 - 5.20 10*6/uL LAB HEMATOLOGY METHOD 05/15/2024 3:22 AM EDT [facility] HGB 8.9(L) 11.2 - 15.7 g/dL LAB HEMATOLOGY METHOD 05/15/2024 3:22 AM EDT [facility] HCT 26.5(L) 34.0 - 45.0 % LAB HEMATOLOGY METHOD 05/15/2024 3:22 AM EDT [facility] Platelet Count 402(H) 155 - 369 10*3/uL LAB HEMATOLOGY METHOD 05/15/2024 3:22 AM EDT [facility] MCV 88 79 - 98 fL LAB HEMATOLOGY METHOD 05/15/2024 3:22 AM EDT [facility] MCH 29.5 26.0 - 32.0 pg LAB HEMATOLOGY METHOD 05/15/2024 3:22 AM EDT [facility] MCHC 33.6 30.7 - 35.5 g/dL LAB HEMATOLOGY METHOD 05/15/2024 3:22 AM EDT [facility] RDW 16.5(H) 11.5 - 14.5 % LAB HEMATOLOGY METHOD 05/15/2024 3:22 AM EDT [facility] MPV 10.7 8.8 - 12.5 fL LAB HEMATOLOGY METHOD 05/15/2024 3:22 AM EDT [facility] nRBC 0.7(H) <=0.0 per 100 WBCs LAB HEMATOLOGY METHOD 05/15/2024 3:22 AM EDT [facility] Blood Venous blood specimen / Unknown Venipuncture / Unknown 05/15/2024 1:13 AM EDT 05/15/2024 1:20 AM EDT us Maite Austin MD LAB BLOOD ORDERABLES Final Resu lt [facility] [address] [place] [address] * WBC Differential (05/15/2024 1:13 AM EDT) Differential Type LAB HEMATOLOGY METHOD 05/15/2024 3:21 AM EDT [facility] Neutrophils % LAB HEMATOLOGY METHOD 05/15/2024 3:21 AM EDT [facility] Lymphocytes % LAB HEMATOLOGY METHOD 05/15/2024 3:21 AM EDT [facility] Monocytes % LAB HEMATOLOGY METHOD 05/15/2024 3:21 AM EDT [facility] Eosinophils % LAB HEMATOLOGY METHOD 05/15/2024 3:21 AM EDT [facility] Basophils % LAB HEMATOLOGY METHOD 05/15/2024 3:21 AM EDT [facility] Immature Granulocytes % LAB HEMATOLOGY METHOD 05/15/2024 3:21 AM EDT [facility] Immature Granulocytes Absolute LAB HEMATOLOGY METHOD 05/15/2024 3:21 AM EDT [facility] Neutrophils Absolute LAB HEMATOLOGY METHOD 05/15/2024 3:21 AM EDT [facility] Lymphocytes Absolute LAB HEMATOLOGY METHOD 05/15/2024 3:21 AM EDT [facility] Monocytes Absolute LAB HEMATOLOGY METHOD 05/15/2024 3:21 AM EDT [facility] Basophils Absolute LAB HEMATOLOGY METHOD 05/15/2024 3:21 AM EDT [facility] Eosinophils Absolute LAB HEMATOLOGY METHOD 05/15/2024 3:21 AM EDT [facility] Blood Venous blood specimen / Unknown Venipuncture / Unknown 05/15/2024 1:13 AM EDT 05/15/2024 1:20 AM EDT us Lora Llanes APRN LAB BLOOD ORDERABLES Final Result [facility] [address] [place] [address] * (ABNORMAL) POCT glucose meter (05/14/2024 6:04 [...] Comment 05/14/2024 6:06 PM EDT [facility] [employer] 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 Jazmyne Malone 6:06 PM EDT [facility]ALTH[facility] LAB Device ID [id number] 05/14/2024 6:06 PM EDT [facility]ALTH[facility]ARE LAB Specimen Type POC Capillary 05/14/2024 6:06 PM EDT [facility] Blood Capillary blood specimen / Unknown 05/14/2024 6:04 PM EDT 05/14/2024 6:06 PM EDT Maite Austin MD LAB POINT OF CARE TE ST DOCKED DEVICE UNSOLICITED RESULTS Final Result Performing Organization Address City/State/[facility] de Phone Number HEALTHCARE LAB [address] [place] [address] * Transfuse RBC (05/14/2024 3:26 PM EDT) us Maite Austin MD BLOOD TRANSFUSION ORDERABLES Fi nal Result * Transfuse RBC: 1 Units (05/14/2024 3:26 PM EDT) us Maite Austin MD BLOOD TRANSFUSION ORDERABLES Fi nal Result * POCT glucose meter (05/14/2024 12:10 PM EDT) Pathologist [facility] POCT Glucose 94 74 - 99 mg/dL [...] Comment 05/14/2024 12:11 PM EDT [facility]ALTHCARE [facility] 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 Jazmyne Malone 12:11 PM EDT [facility] Device ID [id number] 05/14/2024 12:11 PM EDT [facility] Specimen Type POC Venous 05/14/2024 12:11 PM EDT [facility]ALTH[facility] Blood Venous blood specimen / Unknown 05/14/2024 12:10 PM EDT 05/14/2024 12:11 PM EDT us Maite Austin MD LAB POINT OF CARE TE ST DOCKED DEVICE UNSOLICITED RESULTS Final Result Performing Organization Address City/[facility]/ZIP Co de Phone Number HEALTHCARE LAB [address] [place] [address] * Type and screen (05/14/2024 12:10 PM [...] TEST ORDERABLES Final Result Performing Organization Address City/[facility]/ZIP Co de Phone Number BLOOD BANK [address] [place] [address] * (ABNORMAL) Ferritin (05/14/2024 12:10 PM EDT) Ferritin, Serum 1,271(H) 13 - 150 ng/mL 05/14/2024 1:05 PM EDT [facility] Blood Venous blood specimen / Unknown Venipuncture / Unknown 05/14/2024 12:10 PM EDT 05/14/2024 12:22 PM EDT us Maite Austin MD LAB BLOOD ORDERABLES Final Resu lt Performing Organization Address [facility]/ZIP Co de Phone Number [facility] [address] [place] [address] * (ABNORMAL) Iron & Total Iron Binding Capacity, Plasma (Includes Transferrin) (05/14/2024 12:10 PM EDT) Iron, Plasma 25(L) 30 - 160 ug/dL 05/14/2024 1:01 PM EDT [facility] Transferrin, Plasma 125(L) 200 - 360 mg/dL 05/14/2024 1:01 PM EDT [facility] Total Iron Binding Capacity, Plasma 156(L) 240 - 450 ug/mL 05/14/2024 1:01 PM EDT [facility] Transferrin Saturation 16 14 - 50 % 05/14/2024 1:01 PM EDT [facility] Blood Venous blood specimen / Unknown Venipuncture / Unknown 05/14/2024 12:10 PM EDT 05/14/2024 12:22 PM EDT us Maite Austin MD LAB BLOOD ORDERABLES Final Resu lt Performing Organization Address [facility]/ZIP Co de Phone Number [facility] [address] [place] [address] * Prepare Leukocyte Reduced RBC: 1 Units (05/14/2024 12:02 PM EDT) Product Code [id number] CH BLOO D BANK Dispense Status Transfused BLOOD BANK Blood Expiration Date [id number] BLOOD BANK Unit Number [id number] CH B LOOD BANK Product Blood Type 7300 BLOOD BANK Blood Type B+ BLOOD BANK Crossmatch Compatible BLOOD BANK Other Maite Austin MD BLOOD BANK PRODUCT ORDERABLES F inal Result Performing Organization Address City/[facility]/ZIP Co de Phone Number BLOOD BANK [address] [place] [address], [place] * XR Abdomen 1 View (05/14/2024 [...] Result * Phosphorus (05/14/2024 3:35 AM EDT) [facility] Phosphorus, Plasma 3.6 2.5 - 4.5 mg/dL 05/14/2024 4:52 AM EDT [facility] Blood Venous blood specimen / Unknown Venipuncture / Unknown 05/14/2024 3:35 AM EDT 05/14/2024 3:53 AM EDT Maite Austin MD LAB BLOOD ORDERABLES Final Resu lt [facility] [address] [place] [address] * (ABNORMAL) Basic metabolic panel (05/14/2024 3:35 AM EDT) Glucose, Plasma 109(H) 74 - 99 mg/dL 05/14/2024 4:52 AM EDT [facility] BUN, Plasma 16 7 - 21 mg/dL 05/14/2024 4:52 AM EDT [facility] Creatinine, Plasma 0.89 0.60 - 1.10 mg/dL 05/14/2024 4:52 AM EDT [facility] BUN/Creatinine Ratio 18 05/14/2024 4:52 AM EDT [facility] Sodium, Plasma 141 136 - 145 mmol/L 05/14/2024 4:52 AM EDT [facility] Potassium, Plasma 3.6 3.6 - 4.9 mmol/L 05/14/2024 4:52 AM EDT [facility] Chloride, Plasma 109(H) 97 - 107 mmol/L 05/14/2024 4:52 AM EDT [facility] CO2, Plasma 23 22 - 29 mmol/L 05/14/2024 4:52 AM EDT [facility] Anion Gap 9 6 - 16 mmol/L 05/14/2024 4:52 AM EDT [facility] Total Calcium, Plasma 7.4(L) 8.9 - 10.2 mg/dL 05/14/2024 4:52 AM EDT [facility] eGFRcr 77.2 mL/min/1.7 3m*2 05/14/2024 4:52 AM EDT [facility] Comment:Reported eGFRcr in m L/min/1.73m2 is based the CKD-EPI 2020 equation that does not use a race coefficient. Blood Venous blood specimen / Unknown Venipuncture / Unknown 05/14/2024 3:35 AM EDT 05/14/2024 3:53 AM EDT us Maite Austin MD LAB BLOOD ORDERABLES Final Resu lt [facility] [address] [place] [address] * (ABNORMAL) CBC W/O Differential (05/14/2024 3:35 AM EDT) WBC Count 35.22(H) 3.70 - 10.30 10*3/uL LAB HEMATOLOGY METHOD 05/14/2024 4:04 AM EDT [facility] RBC Count 2.43(L) 3.90 - 5.20 10*6/uL LAB HEMATOLOGY METHOD 05/14/2024 4:04 AM EDT [facility] HGB 7.2(L) 11.2 - 15.7 g/dL LAB HEMATOLOGY METHOD 05/14/2024 4:04 AM EDT [facility] HCT 22.0(L) 34.0 - 45.0 % LAB HEMATOLOGY METHOD 05/14/2024 4:04 AM EDT [facility] Platelet Count 352 155 - 369 10*3/uL LAB HEMATOLOGY METHOD 05/14/2024 4:04 AM EDT [facility] MCV 91 79 - 98 fL LAB HEMATOLOGY METHOD 05/14/2024 4:04 AM EDT [facility] MCH 29.6 26.0 - 32.0 pg LAB HEMATOLOGY METHOD 05/14/2024 4:04 AM EDT [facility] MCHC 32.7 30.7 - 35.5 g/dL LAB HEMATOLOGY METHOD 05/14/2024 4:04 AM EDT [facility] RDW 15.4(H) 11.5 - 14.5 % LAB HEMATOLOGY METHOD 05/14/2024 4:04 AM EDT [facility] MPV 11.0 8.8 - 12.5 fL LAB HEMATOLOGY METHOD 05/14/2024 4:04 AM EDT [facility] nRBC 0.3(H) <=0.0 per 100 WBCs LAB HEMATOLOGY METHOD 05/14/2024 4:04 AM EDT [facility] Blood Venous blood specimen / Unknown Venipuncture / Unknown 05/14/2024 3:35 AM EDT 05/14/2024 3:53 AM EDT us Maite Austin MD LAB BLOOD ORDERABLES Final Resu lt [facility] [address] [place] [address] * Magnesium, Plasma (05/14/2024 3:35 AM EDT) [facility] Magnesium, Plasma 2.0 1.9 - 2.4 mg/dL 05/14/2024 4:52 AM EDT [facility] Blood Venous blood specimen / Unknown Venipuncture / Unknown 05/14/2024 3:35 AM EDT 05/14/2024 3:53 AM EDT Lora Llanes APRN LAB BLOOD ORDERABLES Final Result Performing Organization Address [facility] Co de Phone Number [facility] [address] [place] [address] * SARS CoV-2/COVID-19 by PCR (05/13/2024 9:34 PM EDT) [facility] SARS CoV-2/COVID-1 9 RNA PCR Result Not Detected Not Detected 05/15/2024 7:05 AM EDT [facility] Swab Nasopharyngeal structure / Unknown Non-blood Collection / Unknown 05/13/2024 9:34 PM EDT 05/13/2024 10:34 PM EDT Narrative [facility] - 05/15/2024 7:05 AM EDT This [...] This test was performed using the [employer] SARS CoV-2 assay, a PCR-based method. Negative results should be considered presumptive and do not preclude current or future infection obtained through community transmission or other exposures. Negative results must be considered in the context of an individual's recent exposures, history, presence of clinical signs and symptoms consistent with COVID-19. us Maite Austin MD LAB MICROBIOLOGY - GENERAL ORDE RABIRA Final Result Performing Organization Address [facility] Co de Phone Number [facility] [address] [place] [address] * Nasopharyngeal Respiratory Panel (05/13/2024 9:34 PM EDT) [facility] Nasopharyngeal Respiratory PCR Interpretation Not Detected for all analytes Not Detected for all analytes 05/14/2024 2:56 AM EDT [facility] Swab Nasopharyngeal structure / Unknown Non-blood Collection / Unknown 05/13/2024 9:34 PM EDT 05/13/2024 10:34 PM EDT Narrative [facility] - 05/14/2024 2:56 AM EDT This [...] Respiratory PCR Panel is performed using the SpectraReplex instrument. This test is FDA approved for use with Nasopharyngeal swabs only. This test is used for clinical purposes. It should not be regarded as investigational or for research. The [facility] Clinical Microbiology Laboratory is certified under the Clinical Laboratory Improvement Amendments of 1988 (CLIA-88) as qualified to perform high complexity clinical laboratory testing. Maite Austin MD LAB MICROBIOLOGY - [facility] [place] Final Result Performing Organization Address City/State/[facility] Co de Phone Number [facility] [address] [place] [address] * (ABNORMAL) POCT glucose meter (05/13/2024 5:21 PM EDT) [facility] POCT Glucose 146(H) 74 - 99 mg/dL 05/13/2024 5:23 PM EDT [facility] Comment:Accuracy of a glucos [...] for testing. Comment 05/13/2024 5:23 PM EDT [facility] 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 Yolanda Peña 5:23 PM EDT [facility] Device ID [id number] 05/13/2024 5:23 PM EDT [facility] Specimen Type POC Venous 05/13/2024 5:23 PM EDT [facility] Blood Venous blood specimen / Unknown 05/13/2024 5:21 PM EDT 05/13/2024 5:23 PM EDT Maite Austin MD LAB POINT OF CARE TE ST DOCKED DEVICE UNSOLICITED RESULTS Final Result Performing Organization Address City/[facility] Co de Phone Number [facility]CARE [facility] [address] [place] [address] * POCT glucose meter (05/13/2024 12:23 PM EDT) [facility] POCT Glucose 92 74 - 99 mg/dL [...] for testing. Comment 05/13/2024 12:25 PM EDT [facility] 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 Yolanda Peña 12:25 PM EDT [facility] Device ID [id number] 05/13/2024 12:25 PM EDT [facility] Specimen Type POC Capillary 05/13/2024 12:25 PM EDT [facility] Blood Capillary blood specimen / Unknown 05/13/2024 12:23 PM EDT 05/13/2024 12:25 PM EDT Maite Austin MD LAB POINT OF CARE TE ST DOCKED DEVICE UNSOLICITED RESULTS Final Result [facility] [address] [place] [address] * Blood Culture (Aerobic/Anaerobet Set) (05/13/2024 9:47 AM EDT) Pathologist [facility] Culture No growth at day 5 ELI 05/18/2024 11:01 AM EDT [facility] Blood Structure of antecubital vein / Unknown Venipuncture / Unknown 05/13/2024 9:47 AM EDT 05/13/2024 10:21 AM EDT Christi Sherman APRN LAB MICROBIOLOGY - GENERAL ORDERABLES Final Result Performing Organization Address City/[facility]/ZIP Co de Phone Number [facility] [address] [place] [address] * (ABNORMAL) Hepatic function panel (05/13/2024 5:54 AM EDT) [facility] Conjugated Bilirubin, Plasma 0.7(H) <=0.3 mg/dL 05/13/2024 11:24 AM EDT [facility] Alkaline Phosphatase, Plasma 136(H) 35 - 104 U/L 05/13/2024 11:24 AM EDT [facility] Total Bilirubin, Plasma 1.1 0.2 - 1.1 mg/dL 05/13/2024 11:24 AM EDT [facility] Albumin, Plasma 2.6(L) 3.5 - 5.2 g/dL 05/13/2024 11:24 AM EDT [facility] Total Protein 5.5(L) 6.3 - 7.9 g/dL 05/13/2024 11:24 AM EDT [facility] ALT, Plasma 30 10 - 35 U/L 05/13/2024 11:24 AM EDT [facility] AST, Plasma 84(H) 10 - 35 U/L 05/13/2024 11:24 AM EDT [facility] Blood Venous blood specimen / Unknown Venipuncture / Unknown 05/13/2024 5:54 AM EDT 05/13/2024 6:00 AM EDT Christi Sherman APRN LAB BLOOD ORDERABLES Final Result Performing Organization Address City/[facility]/ZIP Co de Phone Number [facility] [address] [place] [address] * Phosphorus (05/13/2024 5:54 AM EDT) Phosphorus, Plasma 4.1 2.5 - 4.5 mg/dL 05/13/2024 6:27 AM EDT [facility] Blood Venous blood specimen / Unknown Venipuncture / Unknown 05/13/2024 5:54 AM EDT 05/13/2024 6:00 AM EDT us Lora Llanes ADMISSIONS SUPERVISOR LAB BLOOD ORDERABLES Final Result [facility] [address] [place] [address] * XR Chest 1 View (05/13/2024 2:43 [...] MD on 05/13/2024 1:16 PM Christi Sherman ADMISSIONS SUPERVISOR IMG XR PROCEDURES Final Re sult * [...] Cass Stoll DO on 05/13/2024 7:35 AM us Christi Sherman APRN IMG XR PROCEDURES Final Re sult * (ABNORMAL) Procalcitonin (05/13/2024 12:43 AM EDT) Procalcitonin, Plasma 1.32(H) <0.09 ng/mL 05/13/2024 1:27 AM EDT [facility] Blood Venous blood specimen / Unknown Venipuncture / Unknown 05/13/2024 12:43 AM EDT 05/13/2024 12:49 AM EDT Narrative [facility] - 05/13/2024 1:27 AM EDT Procalcitonin [...] predict 28 day mortality risk. Please consult [email or web address] for more information. Test performed at [facility]. us Christi Sherman APRN LAB BLOOD ORDERABLES Final Result [facility] [address] [place] [address] * (ABNORMAL) Hemogram (CBC) (05/13/2024 12:43 AM EDT) WBC Count 37.45(H) 3.70 - 10.30 10*3/uL LAB HEMATOLOGY METHOD 05/13/2024 1:02 AM EDT [facility] RBC Count 2.63(L) 3.90 - 5.20 10*6/uL LAB HEMATOLOGY METHOD 05/13/2024 1:02 AM EDT [facility] HGB 7.9(L) 11.2 - 15.7 g/dL LAB HEMATOLOGY METHOD 05/13/2024 1:02 AM EDT [facility] HCT 23.0(L) 34.0 - 45.0 % LAB HEMATOLOGY METHOD 05/13/2024 1:02 AM EDT [facility] Platelet Count 256 155 - 369 10*3/uL LAB HEMATOLOGY METHOD 05/13/2024 1:02 AM EDT [facility] MCV 88 79 - 98 fL LAB HEMATOLOGY METHOD 05/13/2024 1:02 AM EDT [facility] MCH 30.0 26.0 - 32.0 pg LAB HEMATOLOGY METHOD 05/13/2024 1:02 AM EDT [facility] MCHC 34.3 30.7 - 35.5 g/dL LAB HEMATOLOGY METHOD 05/13/2024 1:02 AM EDT [facility] RDW 14.9(H) 11.5 - 14.5 % LAB HEMATOLOGY METHOD 05/13/2024 1:02 AM EDT [facility] MPV 11.4 8.8 - 12.5 fL LAB HEMATOLOGY METHOD 05/13/2024 1:02 AM EDT [facility] nRBC 0.2(H) <=0.0 per 100 WBCs LAB HEMATOLOGY METHOD 05/13/2024 1:02 AM EDT [facility] Blood Venous blood specimen / Unknown Venipuncture / Unknown 05/13/2024 12:43 AM EDT 05/13/2024 12:49 AM EDT Christi Sherman APRN LAB BLOOD ORDERABLES Final Result [facility] [address] [place] [address] * (ABNORMAL) Renal function panel (05/13/2024 12:43 AM EDT) Glucose, Plasma 103(H) 74 - 99 mg/dL 05/13/2024 1:27 AM EDT [facility] BUN, Plasma 18 7 - 21 mg/dL 05/13/2024 1:27 AM EDT [facility] Creatinine, Plasma 0.98 0.60 - 1.10 mg/dL 05/13/2024 1:27 AM EDT [facility] BUN/Creatinine Ratio 18 05/13/2024 1:27 AM EDT [facility] Sodium, Plasma 143 136 - 145 mmol/L 05/13/2024 1:27 AM EDT [facility] Potassium, Plasma 3.8 3.6 - 4.9 mmol/L 05/13/2024 1:27 AM EDT [facility] Chloride, Plasma 106 97 - 107 mmol/L 05/13/2024 1:27 AM EDT [facility] CO2, Plasma 24 22 - 29 mmol/L 05/13/2024 1:27 AM EDT [facility] Anion Gap 13 6 - 16 mmol/L 05/13/2024 1:27 AM EDT [facility] Total Calcium, Plasma 7.7(L) 8.9 - 10.2 mg/dL 05/13/2024 1:27 AM EDT [facility] Phosphorus, Plasma 4.0 2.5 - 4.5 mg/dL 05/13/2024 1:27 AM EDT [facility] Albumin, Plasma 2.6(L) 3.5 - 5.2 g/dL 05/13/2024 1:27 AM EDT [facility] eGFRcr 68.7 mL/min/1.7 3m*2 05/13/2024 1:27 AM EDT [facility] Comment:Reported eGFRcr in m L/min/1.73m2 is based the CKD-EPI 2020 equation that does not use a race coefficient. Blood Venous blood specimen / Unknown Venipuncture / Unknown 05/13/2024 12:43 AM EDT 05/13/2024 12:49 AM EDT us Christi Sherman ADMISSIONS SUPERVISOR LAB BLOOD ORDERABLES Final Result Performing Organization Address City/[facility] Co de Phone Number [facility] [address] [place] [address] * (ABNORMAL) Magnesium, Plasma (05/13/2024 12:43 AM EDT) [facility] Magnesium, Plasma 2.5(H) 1.9 - 2.4 mg/dL 05/13/2024 1:27 AM EDT [facility] Blood Venous blood specimen / Unknown Venipuncture / Unknown 05/13/2024 12:43 AM EDT 05/13/2024 12:49 AM EDT us Lora Llanes ADMISSIONS SUPERVISOR LAB BLOOD ORDERABLES Final Result Performing Organization Address [facility] Co ms Phone Number [facility] [address] [place] [address] * POCT glucose meter (05/12/2024 6:40 PM EDT) [facility] POCT Glucose 96 74 - 99 mg/dL [...] 05/12/2024 6:41 PM EDT [facility] [employer] 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 Yolanda Peña 6:41 PM EDT [facility] Device ID [id number] 05/12/2024 6:41 PM EDT [facility] Specimen Type POC Venous 05/12/2024 6:41 PM EDT [facility] Blood Venous blood specimen / Unknown 05/12/2024 6:40 PM EDT 05/12/2024 6:41 PM EDT us Maite Austin MD LAB POINT OF CARE TE ST DOCKED DEVICE UNSOLICITED RESULTS Final Result Performing Organization Address City/[facility] Co de Phone Number [facility] [address] [place] [address] * Lactate, venous (05/12/2024 1:11 PM EDT) Lactate, Venous, Whole Blood 1.6 0.5 - 2.2 mmol/L LAB HEMATOLOGY METHOD 05/12/2024 1:17 PM EDT [facility] Blood Venous blood specimen / Unknown Venipuncture / Unknown 05/12/2024 1:11 PM EDT 05/12/2024 1:16 PM EDT us Maite Austin MD LAB BLOOD ORDERABLES Final Resu lt Performing Organization Address [facility] Co de Phone Number [facility] [address] [place] [address] * Magnesium (05/12/2024 12:55 PM EDT) Magnesium, Plasma 2.4 1.9 - 2.4 mg/dL 05/12/2024 1:35 PM EDT [facility] Blood Venous blood specimen / Unknown Venipuncture / Unknown 05/12/2024 12:55 PM EDT 05/12/2024 1:04 PM EDT Christi Sherman APRN LAB BLOOD ORDERABLES Final Result Performing Organization Address City/[facility] Co de Phone Number [facility] [address] [place] [address] * (ABNORMAL) Renal function panel (05/12/2024 12:55 PM EDT) Glucose, Plasma 125(H) 74 - 99 mg/dL 05/12/2024 1:35 PM EDT [facility] BUN, Plasma 17 7 - 21 mg/dL 05/12/2024 1:35 PM EDT [facility] Creatinine, Plasma 1.05 0.60 - 1.10 mg/dL 05/12/2024 1:35 PM EDT [facility] BUN/Creatinine Ratio 16 05/12/2024 1:35 PM EDT [facility] Sodium, Plasma 141 136 - 145 mmol/L 05/12/2024 1:35 PM EDT [facility] Potassium, Plasma 3.6 3.6 - 4.9 mmol/L 05/12/2024 1:35 PM EDT [facility] Chloride, Plasma 102 97 - 107 mmol/L 05/12/2024 1:35 PM EDT [facility] CO2, Plasma 25 22 - 29 mmol/L 05/12/2024 1:35 PM EDT [facility] Anion Gap 14 6 - 16 mmol/L 05/12/2024 1:35 PM EDT [facility] Total Calcium, Plasma 8.1(L) 8.9 - 10.2 mg/dL 05/12/2024 1:35 PM EDT [facility] Phosphorus, Plasma 4.0 2.5 - 4.5 mg/dL 05/12/2024 1:35 PM EDT [facility] Albumin, Plasma 2.7(L) 3.5 - 5.2 g/dL 05/12/2024 1:35 PM EDT [facility] eGFRcr 63.3 mL/min/1.7 3m*2 05/12/2024 1:35 PM EDT [facility] Comment:Reported eGFRcr in m L/min/1.73m2 is based the CKD-EPI 2020 equation that does not use a race coefficient. Blood Venous blood specimen / Unknown Venipuncture / Unknown 05/12/2024 12:55 PM EDT 05/12/2024 1:04 PM EDT us Christi Sherman APRN LAB BLOOD ORDERABLES Final Result [facility] [address] [place] [address] * (ABNORMAL) POCT glucose meter (05/12/2024 12:01 [...] Comment 05/12/2024 12:03 PM EDT [facility] [employer] 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 Yolanda Peña 12:03 PM EDT [facility] Device ID [id number] 05/12/2024 12:03 PM EDT [facility] Specimen Type POC Venous 05/12/2024 12:03 PM EDT [facility] Blood Venous blood specimen / Unknown 05/12/2024 12:01 PM EDT 05/12/2024 12:03 PM EDT us Maite Austin MD LAB POINT OF CARE TE ST DOCKED DEVICE UNSOLICITED RESULTS Final Result Performing Organization Address City/State/[facility] Co de Phone Number [facility] [address] [place] [address] * (ABNORMAL) POCT glucose meter (05/12/2024 11:59 AM EDT) [facility] POCT Glucose 276(H) 74 - 99 mg/dL 05/12/2024 12:02 PM EDT [facility] Comment:Accuracy of a [...] 05/12/2024 12:02 PM EDT [facility] 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 Yolanda Peña 12:02 PM EDT [facility] Device ID [id number] 05/12/2024 12:02 PM EDT [facility] Specimen Type POC Venous 05/12/2024 12:02 PM EDT [facility] Blood Venous blood specimen / Unknown 05/12/2024 11:59 AM EDT 05/12/2024 12:02 PM EDT us Maite Austin MD LAB POINT OF CARE TE ST DOCKED DEVICE UNSOLICITED RESULTS Final Result [facility] [address] [place] [address] * CT Abdomen Pelvis wo IV Contrast [...] Shi MD on 05/12/2024 2:12 PM Christi Van Sherman ADMISSIONS SUPERVISOR IMG CT PROCEDURES Final Re sult * Lactate, venous (05/12/2024 10:12 AM EDT) Pathologist [facility] Lactate, Venous, Whole Blood 1.6 0.5 - 2.2 mmol/L LAB HEMATOLOGY METHOD 05/12/2024 10:18 AM EDT [facility] Blood Venous blood specimen / Unknown Venipuncture / Unknown 05/12/2024 10:12 AM EDT 05/12/2024 10:16 AM EDT us Maite Austin MD LAB BLOOD ORDERABLES Final Resu lt [facility] [address] [place] [address] * (ABNORMAL) POCT glucose meter (05/12/2024 6:57 AM EDT) Pathologist [facility] POCT Glucose 109(H) 74 - 99 mg/dL [...] Comment 05/12/2024 6:59 AM EDT [facility] J[employer] 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 Cheryl Mcconnell 05/13/19 6:59 AM EDT [facility] Device ID [id number] 05/12/2024 6:59 AM EDT [facility] Specimen Type POC Capillary 05/12/2024 6:59 AM EDT [facility] Blood Capillary blood specimen / Unknown 05/12/2024 6:57 AM EDT 05/12/2024 6:59 AM EDT us Maite Austin MD LAB POINT OF CARE TE ST DOCKED DEVICE UNSOLICITED RESULTS Final Result [facility] [address] [place] [address] * XR Chest 1 View (05/12/2024 2:33 [...] 05/12/2024 11:58 AM Final report signed by Zharaa Berger MD on 05/12/2024 3:53 PM Maite Austin MD IMG XR PROCEDURES Final Result * (ABNORMAL) Blood gas panel, venous (05/12/2024 12:58 AM EDT) pH, Venous 7.49(H) 7.32 - 7.43 LAB HEMATOLOGY METHOD 05/12/2024 12:58 AM EDT [facility] pCO2, Venous 36(L) 37 - 52 mmHg LAB HEMATOLOGY METHOD 05/12/2024 12:58 AM EDT [facility] pO2, Venous 45(H) 25 - 40 mmHg LAB HEMATOLOGY METHOD 05/12/2024 12:58 AM EDT [facility] SO2, Measured, Venous 82(H) 65 - 80 % LAB HEMATOLOGY METHOD 05/12/2024 12:58 AM EDT [facility] Base Excess, Venous 4.4(H) -2.0 - 3.0 mmol/L LAB HEMATOLOGY METHOD 05/12/2024 12:58 AM EDT [facility] Bicarbonate, Calculated, Venous 28(H) 22 - 26 mmol/L LAB HEMATOLOGY METHOD 05/12/2024 12:58 AM EDT [facility] Hematocrit, Whole Blood 26.7(L) 34.0 - 45.0 % LAB HEMATOLOGY METHOD 05/12/2024 12:58 AM EDT [facility] Sodium, Whole Blood 140 136 - 145 mmol/L LAB HEMATOLOGY METHOD 05/12/2024 12:58 AM EDT [facility] Potassium, Whole Blood 3.1(L) 3.6 - 4.9 mmol/L LAB HEMATOLOGY METHOD 05/12/2024 12:58 AM EDT [facility] Chloride, Whole Blood 101 97 - 107 mmol/L LAB HEMATOLOGY METHOD 05/12/2024 12:58 AM EDT [facility] Glucose, Whole Blood 101(H) 74 - 99 mg/dL LAB HEMATOLOGY METHOD 05/12/2024 12:58 AM EDT [facility] Lactate, Venous, Whole Blood 1.6 0.5 - 2.2 mmol/L LAB HEMATOLOGY METHOD 05/12/2024 12:58 AM EDT [facility] Ionized Calcium, Whole Blood 4.4(L) 4.6 - 5.1 mg/dL LAB HEMATOLOGY METHOD 05/12/2024 12:58 AM EDT [facility] Blood Venous blood specimen / Unknown 05/12/2024 12:53 AM EDT us Lora Dawn Llanes ADMISSIONS SUPERVISOR LAB BLOOD ORDERABLES Final Result Performing Organization Address City/[facility]/ZIP Co de Phone Number [facility] [address] [place] [address] * (ABNORMAL) Procalcitonin (05/12/2024 12:34 AM EDT) Procalcitonin, Plasma 2.08(H) <0.09 ng/mL 05/12/2024 2:46 AM EDT [facility] Blood Venous blood specimen / Unknown Venipuncture / Unknown 05/12/2024 12:34 AM EDT 05/12/2024 1:00 AM EDT Narrative [facility] - 05/12/2024 2:46 AM EDT Procalcitonin [...] predict 28 day mortality risk. Please consult [email or web address]-tbl-[email or web address] for more information. Test performed at [facility]. us Lora Llanes APRN LAB BLOOD ORDERABLES Final Result Performing Organization Address City/[facility]/ZIP Co de Phone Number [facility] [address] [place] [address] * Lipase (05/12/2024 12:34 AM EDT) Lipase, Plasma 55 19 - 63 U/L 05/12/2024 2:46 AM EDT [facility] Blood Venous blood specimen / Unknown Venipuncture / Unknown 05/12/2024 12:34 AM EDT 05/12/2024 1:00 AM EDT us Lora Llanes ADMISSIONS SUPERVISOR LAB BLOOD ORDERABLES Final Result [facility] [address] [place] [address] * (ABNORMAL) Basic metabolic panel (05/12/2024 12:34 AM EDT) Glucose, Plasma 102(H) 74 - 99 mg/dL 05/12/2024 2:46 AM EDT [facility] BUN, Plasma 21 7 - 21 mg/dL 05/12/2024 2:46 AM EDT [facility] Creatinine, Plasma 1.13(H) 0.60 - 1.10 mg/dL 05/12/2024 2:46 AM EDT [facility] BUN/Creatinine Ratio 19 05/12/2024 2:46 AM EDT [facility] Sodium, Plasma 141 136 - 145 mmol/L 05/12/2024 2:46 AM EDT [facility] Potassium, Plasma 3.3(L) 3.6 - 4.9 mmol/L 05/12/2024 2:46 AM EDT [facility] Chloride, Plasma 103 97 - 107 mmol/L 05/12/2024 2:46 AM EDT [facility] CO2, Plasma 23 22 - 29 mmol/L 05/12/2024 2:46 AM EDT [facility] Anion Gap 15 6 - 16 mmol/L 05/12/2024 2:46 AM EDT [facility] Total Calcium, Plasma 8.3(L) 8.9 - 10.2 mg/dL 05/12/2024 2:46 AM EDT [facility] eGFRcr 57.9 mL/min/1.7 3m*2 05/12/2024 2:46 AM EDT [facility] Comment:Reported eGFRcr in m L/min/1.73m2 is based the CKD-EPI 2020 equation that does not use a race coefficient. Blood Venous blood specimen / Unknown Venipuncture / Unknown 05/12/2024 12:34 AM EDT 05/12/2024 1:00 AM EDT us Maite Austin MD LAB BLOOD ORDERABLES Final Resu lt [facility] [address] [place] [address] * (ABNORMAL) Hemogram (CBC) (05/12/2024 12:34 AM EDT) WBC Count 32.60(H) 3.70 - 10.30 10*3/uL LAB HEMATOLOGY METHOD 05/12/2024 1:08 AM EDT [facility] RBC Count 2.77(L) 3.90 - 5.20 10*6/uL LAB HEMATOLOGY METHOD 05/12/2024 1:08 AM EDT [facility] HGB 8.4(L) 11.2 - 15.7 g/dL LAB HEMATOLOGY METHOD 05/12/2024 1:08 AM EDT [facility] HCT 23.9(L) 34.0 - 45.0 % LAB HEMATOLOGY METHOD 05/12/2024 1:08 AM EDT [facility] Platelet Count 184 155 - 369 10*3/uL LAB HEMATOLOGY METHOD 05/12/2024 1:08 AM EDT [facility] MCV 86 79 - 98 fL LAB HEMATOLOGY METHOD 05/12/2024 1:08 AM EDT [facility] MCH 30.3 26.0 - 32.0 pg LAB HEMATOLOGY METHOD 05/12/2024 1:08 AM EDT [facility] MCHC 35.1 30.7 - 35.5 g/dL LAB HEMATOLOGY METHOD 05/12/2024 1:08 AM EDT [facility] RDW 15.2(H) 11.5 - 14.5 % LAB HEMATOLOGY METHOD 05/12/2024 1:08 AM EDT [facility] MPV 11.4 8.8 - 12.5 fL LAB HEMATOLOGY METHOD 05/12/2024 1:08 AM EDT [facility] nRBC 0.4(H) <=0.0 per 100 WBCs LAB HEMATOLOGY METHOD 05/12/2024 1:08 AM EDT [facility] Blood Venous blood specimen / Unknown Venipuncture / Unknown 05/12/2024 12:34 AM EDT 05/12/2024 1:02 AM EDT us Maite Austin MD LAB BLOOD ORDERABLES Final Resu lt Performing Organization Address City/[facility]/ZIP Co de Phone Number [facility] [address] [place] [address] * Phosphorus (05/12/2024 12:34 AM EDT) Phosphorus, Plasma 3.9 2.5 - 4.5 mg/dL 05/12/2024 2:46 AM EDT [facility] Blood Venous blood specimen / Unknown Venipuncture / Unknown 05/12/2024 12:34 AM EDT 05/12/2024 1:00 AM EDT us Lora Llanes APRN LAB BLOOD ORDERABLES Final Result Performing Organization Address City/[facility] Co de Phone Number [facility] [address] [place] [address] * Magnesium, Plasma (05/12/2024 12:34 AM EDT) Magnesium, Plasma 2.0 1.9 - 2.4 mg/dL 05/12/2024 2:46 AM EDT [facility] Blood Venous blood specimen / Unknown Venipuncture / Unknown 05/12/2024 12:34 AM EDT 05/12/2024 1:00 AM EDT us Lora Llanes APRN LAB BLOOD ORDERABLES Final Result Performing Organization Address City/[facility] Co de Phone Number [facility] [address] [place] [address] * (ABNORMAL) POCT glucose meter (05/12/2024 12:22 [...] Comment 05/12/2024 12:23 AM EDT [facility] 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 Cheryl Mcconnell 05/13/19 12:23 AM EDT [facility] Device ID [id number] 05/12/2024 12:23 AM EDT [facility] Specimen Type POC Capillary 05/12/2024 12:23 AM EDT [facility] Blood Capillary blood specimen / Unknown 05/12/2024 12:22 AM EDT 05/12/2024 12:23 AM EDT us Maite Austin MD LAB POINT OF CARE TE ST DOCKED DEVICE UNSOLICITED RESULTS Final Result Performing Organization Address City/State/[facility] de Phone Number [facility] [address] [place] [address] * XR Abdomen 1 View (05/11/2024 11:53 [...] on 05/12/2024 12:00 AM us Lora Llanes ADMISSIONS SUPERVISOR IMG XR PROCEDURES Final Res ult * (ABNORMAL) POCT glucose meter (05/11/2024 6:09 PM EDT) POCT Glucose 113(H) 74 - [...] Comment 05/11/2024 6:11 PM EDT [facility] [employer] 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 [place], 05/12/19 6:11 PM EDT [facility] Device ID [id number] 05/11/2024 6:11 PM EDT [facility] Specimen Type POC Capillary 05/11/2024 6:11 PM EDT [facility] Blood Capillary blood specimen / Unknown 05/11/2024 6:09 PM EDT 05/11/2024 6:11 PM EDT us Maite Austin MD LAB POINT OF CARE TE ST DOCKED DEVICE UNSOLICITED RESULTS Final Result [facility] [address] [place] [id number] * Magnesium (05/11/2024 2:02 PM EDT) Magnesium, Plasma 2.2 1.9 - 2.4 mg/dL 05/11/2024 2:49 PM EDT [facility] Blood Venous blood specimen / Unknown Venipuncture / Unknown 05/11/2024 2:02 PM EDT 05/11/2024 2:20 PM EDT us Matie Austin MD LAB BLOOD ORDERABLES Final Resu lt [facility] [address] [place] [address] * (ABNORMAL) Renal function panel (05/11/2024 2:02 PM EDT) Pathologist [facility] Glucose, Plasma 89 74 - 99 mg/dL 05/11/2024 2:49 PM EDT [facility] BUN, Plasma 22(H) 7 - 21 mg/dL 05/11/2024 2:49 PM EDT [facility] Creatinine, Plasma 1.18(H) 0.60 - 1.10 mg/dL 05/11/2024 2:49 PM EDT [facility] BUN/Creatinine Ratio 19 05/11/2024 2:49 PM EDT [facility] Sodium, Plasma 142 136 - 145 mmol/L 05/11/2024 2:49 PM EDT [facility] Potassium, Plasma 3.9 3.6 - 4.9 mmol/L 05/11/2024 2:49 PM EDT [facility] Chloride, Plasma 106 97 - 107 mmol/L 05/11/2024 2:49 PM EDT [facility] CO2, Plasma 24 22 - 29 mmol/L 05/11/2024 2:49 PM EDT [facility] Anion Gap 12 6 - 16 mmol/L 05/11/2024 2:49 PM EDT [facility] Total Calcium, Plasma 9.1 8.9 - 10.2 mg/dL 05/11/2024 2:49 PM EDT [facility] Phosphorus, Plasma 4.4 2.5 - 4.5 mg/dL 05/11/2024 2:49 PM EDT [facility] Albumin, Plasma 3.0(L) 3.5 - 5.2 g/dL 05/11/2024 2:49 PM EDT [facility] eGFRcr 55.0 mL/min/1.7 3m*2 05/11/2024 2:49 PM EDT [facility] Comment:Reported eGFRcr in m L/min/1.73m2 is based the CKD-EPI 2020 equation that does not use a race coefficient. Blood Venous blood specimen / Unknown Venipuncture / Unknown 05/11/2024 2:02 PM EDT 05/11/2024 2:20 PM EDT Maite Austin MD LAB BLOOD ORDERABLES Final Resu lt Performing Organization Address City/[facility]/ZIP Co de Phone Number [facility] [address] [place] [address] * (ABNORMAL) POCT glucose meter (05/11/2024 11:48 AM EDT) [facility] POCT Glucose 200(H) 74 - 99 mg/dL [...] for testing. Comment 05/11/2024 11:50 AM EDT [facility] 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 [email or web address], 05/12/19 11:50 AM EDT [facility] Device ID [id number] 05/11/2024 11:50 AM EDT [facility] Specimen Type POC Capillary 05/11/2024 11:50 AM [facility] Blood Capillary blood specimen / Unknown 05/11/2024 11:48 AM EDT 05/11/2024 11:50 AM EDT us Maite Austin MD LAB POINT OF CARE TE ST DOCKED DEVICE UNSOLICITED RESULTS Final Result Performing Organization Address City/[facility]/ZIP Co de Phone Number [facility] [address] [place] [address] * (ABNORMAL) POCT glucose meter (05/11/2024 11:14 [...] Comment 05/11/2024 11:43 AM [facility] [employer] 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 [employer], 05/12/19 11:43 AM [facility] Device ID [id number] 05/11/2024 11:43 AM [facility] Specimen Type POC Capillary 05/11/2024 11:43 AM EDT [facility] Blood Capillary blood specimen / Unknown 05/11/2024 11:14 AM EDT 05/11/2024 11:43 AM EDT us Maite Austin MD LAB POINT OF CARE TE ST DOCKED DEVICE UNSOLICITED RESULTS Final Result Performing Organization Address City/[facility]/ZIP Co de Phone Number [facility] [address] [place] [address] * Phosphorus (05/11/2024 2:38 AM EDT) Phosphorus, Plasma 3.8 2.5 - 4.5 mg/dL 05/11/2024 3:16 AM EDT [facility] Blood Venous blood specimen / Unknown Venipuncture / Unknown 05/11/2024 2:38 AM EDT 05/11/2024 2:46 AM EDT us Lora Llanes APRN LAB BLOOD ORDERABLES Final Result [facility] [address] [place] [address] * (ABNORMAL) Basic metabolic panel (05/11/2024 2:38 AM EDT) Glucose, Plasma 86 74 - 99 mg/dL 05/11/2024 3:16 AM EDT [facility] BUN, Plasma 22(H) 7 - 21 mg/dL 05/11/2024 3:16 AM EDT [facility] Creatinine, Plasma 1.09 0.60 - 1.10 mg/dL 05/11/2024 3:16 AM EDT [facility] BUN/Creatinine Ratio 20 05/11/2024 3:16 AM EDT [facility] Sodium, Plasma 141 136 - 145 mmol/L 05/11/2024 3:16 AM EDT [facility] Potassium, Plasma 3.7 3.6 - 4.9 mmol/L 05/11/2024 3:16 AM EDT [facility] Chloride, Plasma 106 97 - 107 mmol/L 05/11/2024 3:16 AM EDT [facility] CO2, Plasma 24 22 - 29 mmol/L 05/11/2024 3:16 AM EDT [facility] Anion Gap 11 6 - 16 mmol/L 05/11/2024 3:16 AM EDT [facility] Total Calcium, Plasma 7.8(L) 8.9 - 10.2 mg/dL 05/11/2024 3:16 AM EDT [facility] eGFRcr 60.5 mL/min/1.7 3m*2 05/11/2024 3:16 AM EDT [facility] Comment:Reported eGFRcr in m L/min/1.73m2 is based the CKD-EPI 2020 equation that does not use a race coefficient. Blood Venous blood specimen / Unknown Venipuncture / Unknown 05/11/2024 2:38 AM EDT 05/11/2024 2:46 AM EDT us Maite Austin MD LAB BLOOD ORDERABLES Final Resu lt [facility] [address] [place] [address] * (ABNORMAL) Hemogram (CBC) (05/11/2024 2:38 AM EDT) WBC Count 23.95(H) 3.70 - 10.30 10*3/uL LAB HEMATOLOGY METHOD 05/11/2024 2:54 AM EDT [facility] RBC Count 2.92(L) 3.90 - 5.20 10*6/uL LAB HEMATOLOGY METHOD 05/11/2024 2:54 AM EDT [facility] HGB 8.6(L) 11.2 - 15.7 g/dL LAB HEMATOLOGY METHOD 05/11/2024 2:54 AM EDT [facility] HCT 25.0(L) 34.0 - 45.0 % LAB HEMATOLOGY METHOD 05/11/2024 2:54 AM EDT [facility] Platelet Count 146(L) 155 - 369 10*3/uL LAB HEMATOLOGY METHOD 05/11/2024 2:54 AM EDT [facility] MCV 86 79 - 98 fL LAB HEMATOLOGY METHOD 05/11/2024 2:54 AM EDT [facility] MCH 29.5 26.0 - 32.0 pg LAB HEMATOLOGY METHOD 05/11/2024 2:54 AM EDT [facility] MCHC 34.4 30.7 - 35.5 g/dL LAB HEMATOLOGY METHOD 05/11/2024 2:54 AM EDT [facility] RDW 15.6(H) 11.5 - 14.5 % LAB HEMATOLOGY METHOD 05/11/2024 2:54 AM EDT [facility] MPV 10.6 8.8 - 12.5 fL LAB HEMATOLOGY METHOD 05/11/2024 2:54 AM EDT [facility] nRBC 0.9(H) <=0.0 per 100 WBCs LAB HEMATOLOGY METHOD 05/11/2024 2:54 AM EDT [facility] Blood Venous blood specimen / Unknown Venipuncture / Unknown 05/11/2024 2:38 AM EDT 05/11/2024 2:47 AM EDT us Maite Austin MD LAB BLOOD ORDERABLES Final Resu lt [facility] [address] [place] [address] * (ABNORMAL) Blood gas panel, venous (05/11/2024 2:38 AM EDT) pH, Venous 7.46(H) 7.32 - 7.43 LAB HEMATOLOGY METHOD 05/11/2024 2:56 AM EDT [facility] pCO2, Venous 37 37 - 52 mmHg LAB HEMATOLOGY METHOD 05/11/2024 2:56 AM EDT [facility] pO2, Venous 65(H) 25 - 40 mmHg LAB HEMATOLOGY METHOD 05/11/2024 2:56 AM EDT [facility] SO2, Measured, Venous 94(H) 65 - 80 % LAB HEMATOLOGY METHOD 05/11/2024 2:56 AM EDT [facility] Base Excess, Venous 2.0 -2.0 - 3.0 mmol/L LAB HEMATOLOGY METHOD 05/11/2024 2:56 AM EDT [facility] Bicarbonate, Calculated, Venous 26 22 - 26 mmol/L LAB HEMATOLOGY METHOD 05/11/2024 2:56 AM EDT [facility] Hematocrit, Whole Blood 25.3(L) 34.0 - 45.0 % LAB HEMATOLOGY METHOD 05/11/2024 2:56 AM EDT [facility] Sodium, Whole Blood 143 136 - 145 mmol/L LAB HEMATOLOGY METHOD 05/11/2024 2:56 AM EDT [facility] Potassium, Whole Blood 3.4(L) 3.6 - 4.9 mmol/L LAB HEMATOLOGY METHOD 05/11/2024 2:56 AM EDT [facility] Chloride, Whole Blood 106 97 - 107 mmol/L LAB HEMATOLOGY METHOD 05/11/2024 2:56 AM EDT [facility] Glucose, Whole Blood 82 74 - 99 mg/dL LAB HEMATOLOGY METHOD 05/11/2024 2:56 AM EDT [facility] Lactate, Venous, Whole Blood 1.2 0.5 - 2.2 mmol/L LAB HEMATOLOGY METHOD 05/11/2024 2:56 AM EDT [facility] Ionized Calcium, Whole Blood 4.2(L) 4.6 - 5.1 mg/dL LAB HEMATOLOGY METHOD 05/11/2024 2:56 AM EDT [facility] Blood Venous blood specimen / Unknown Venipuncture / Unknown 05/11/2024 2:38 AM EDT 05/11/2024 2:52 AM EDT us Lora Llanes ADMISSIONS SUPERVISOR LAB BLOOD ORDERABLES Final Result [facility] [address] [place] [address] * Magnesium, Plasma (05/11/2024 2:38 AM EDT) Magnesium, Plasma 2.3 1.9 - 2.4 mg/dL 05/11/2024 3:16 AM EDT [facility] Blood Venous blood specimen / Unknown Venipuncture / Unknown 05/11/2024 2:38 AM EDT 05/11/2024 2:46 AM EDT us Lora Llanes ADMISSIONS SUPERVISOR LAB BLOOD ORDERABLES Final Result [facility] [address] [place] [address] * XR Abdomen 1 View (05/11/2024 2:20 [...] Zahraa Berger MD on 05/11/2024 10:08 AM Maite Austin MD IMG XR PROCEDURES [...] POCT glucose meter (05/10/2024 8:57 PM EDT) [facility] POCT Glucose 102(H) 74 - 99 mg/dL 05/10/2024 8:59 PM [facility] Comment:Accuracy of a [...] for testing. Comment 05/10/2024 8:59 PM [facility]T [facility] J[employer] 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 Ernestina Freeman 05/11/19 8:59 PM EDT [facility] Device ID [id number] 05/10/2024 8:59 PM [facility] Specimen Type POC Capillary 05/10/2024 8:59 PM [facility] Blood Capillary blood specimen / Unknown 05/10/2024 8:57 PM EDT 05/10/2024 8:59 PM EDT Maite Austin MD LAB POINT OF CARE TE ST DOCKED DEVICE UNSOLICITED RESULTS Final Result [facility] [address] [place] [address] * (ABNORMAL) POCT glucose meter (05/10/2024 5:38 PM EDT) [facility] POCT Glucose 100(H) 74 - 99 mg/dL [...] 05/10/2024 5:40 PM EDT [facility] J[employer] 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 Mayco, 05/11/19 5:40 PM [facility] Device ID [id number] 05/10/2024 5:40 PM EDT [facility] Specimen Type POC Capillary 05/10/2024 5:40 PM [facility] Blood Capillary blood specimen / Unknown 05/10/2024 5:38 PM EDT 05/10/2024 5:40 PM EDT Maite Austin MD LAB POINT OF CARE TE ST DOCKED DEVICE UNSOLICITED RESULTS Final Result [facility] [address] [place] [address] * POCT glucose meter (05/10/2024 1:26 PM EDT) [facility] POCT Glucose 92 74 - 99 mg/dL [...] 05/10/2024 1:34 PM EDT [facility] J[employer] 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 ThaiJamee, 05/11/19 1:34 PM EDT [facility] Device ID [id number] 05/10/2024 1:34 PM EDT [facility] Specimen Type POC Capillary 05/10/2024 1:34 PM EDT [facility] Blood Capillary blood specimen / Unknown 05/10/2024 1:26 PM EDT 05/10/2024 1:34 PM EDT us Maite Austin MD LAB POINT OF CARE TE ST DOCKED DEVICE UNSOLICITED RESULTS Final Result [facility] [address] [place] [address] * XR Abdomen 1 View (05/10/2024 11:41 [...] - 4.5 mg/dL 05/10/2024 6:23 AM EDT [facility] Blood Venous blood specimen / Unknown Venipuncture / Unknown 05/10/2024 5:41 AM EDT 05/10/2024 5:53 AM EDT us Lora Llanes APRN LAB BLOOD ORDERABLES Final Result [facility] [address] [place] [address] * (ABNORMAL) Blood gas panel, venous (05/10/2024 5:41 AM EDT) pH, Venous 7.44(H) 7.32 - 7.43 LAB HEMATOLOGY METHOD 05/10/2024 5:49 AM EDT [facility] pCO2, Venous 39 37 - 52 mmHg LAB HEMATOLOGY METHOD 05/10/2024 5:49 AM EDT [facility] pO2, Venous 34 25 - 40 mmHg LAB HEMATOLOGY METHOD 05/10/2024 5:49 AM EDT [facility] SO2, Measured, Venous 62(L) 65 - 80 % LAB HEMATOLOGY METHOD 05/10/2024 5:49 AM EDT [facility] Base Excess, Venous 1.8 -2.0 - 3.0 mmol/L LAB HEMATOLOGY METHOD 05/10/2024 5:49 AM EDT [facility] Bicarbonate, Calculated, Venous 26 22 - 26 mmol/L LAB HEMATOLOGY METHOD 05/10/2024 5:49 AM EDT [facility] Hematocrit, Whole Blood 27.1(L) 34.0 - 45.0 % LAB HEMATOLOGY METHOD 05/10/2024 5:49 AM EDT [facility] Sodium, Whole Blood 143 136 - 145 mmol/L LAB HEMATOLOGY METHOD 05/10/2024 5:49 AM EDT [facility] Potassium, Whole Blood 3.8 3.6 - 4.9 mmol/L LAB HEMATOLOGY METHOD 05/10/2024 5:49 AM EDT [facility] Chloride, Whole Blood 108(H) 97 - 107 mmol/L LAB HEMATOLOGY METHOD 05/10/2024 5:49 AM EDT [facility] Glucose, Whole Blood 97 74 - 99 mg/dL LAB HEMATOLOGY METHOD 05/10/2024 5:49 AM EDT [facility] Lactate, Venous, Whole Blood 1.8 0.5 - 2.2 mmol/L LAB HEMATOLOGY METHOD 05/10/2024 5:49 AM EDT [facility] Ionized Calcium, Whole Blood 4.2(L) 4.6 - 5.1 mg/dL LAB HEMATOLOGY METHOD 05/10/2024 5:49 AM EDT [facility] Blood Venous blood specimen / Unknown Venipuncture / Unknown 05/10/2024 5:41 AM EDT 05/10/2024 5:48 AM EDT us Lora Llanes APRN LAB BLOOD ORDERABLES Final Result Performing Organization Address City/[facility]/ZIP Co de Phone Number [facility] [address] [place] [address] * (ABNORMAL) Magnesium, Plasma (05/10/2024 5:41 AM EDT) Magnesium, Plasma 2.5(H) 1.9 - 2.4 mg/dL 05/10/2024 6:23 AM EDT [facility] Blood Venous blood specimen / Unknown Venipuncture / Unknown 05/10/2024 5:41 AM EDT 05/10/2024 5:53 AM EDT us Lora Llanes APRN LAB BLOOD ORDERABLES Final Result [facility] [address] [place] [address] * (ABNORMAL) Hepatic function panel (05/10/2024 5:41 AM EDT) Conjugated Bilirubin, Plasma 0.2 <=0.3 mg/dL 05/10/2024 6:23 AM EDT [facility] Alkaline Phosphatase, Plasma 112(H) 35 - 104 U/L 05/10/2024 6:23 AM EDT [facility] Total Bilirubin, Plasma 0.5 0.2 - 1.1 mg/dL 05/10/2024 6:23 AM EDT [facility] Albumin, Plasma 2.7(L) 3.5 - 5.2 g/dL 05/10/2024 6:23 AM EDT [facility] Total Protein 5.7(L) 6.3 - 7.9 g/dL 05/10/2024 6:23 AM EDT [facility] ALT, Plasma 45(H) 10 - 35 U/L 05/10/2024 6:23 AM EDT [facility] AST, Plasma 201(H) 10 - 35 U/L 05/10/2024 6:23 AM EDT [facility] Blood Venous blood specimen / Unknown Venipuncture / Unknown 05/10/2024 5:41 AM EDT 05/10/2024 5:53 AM EDT us Maite Austin MD LAB BLOOD ORDERABLES Final Resu lt [facility] [address] [place] [address] * (ABNORMAL) Basic metabolic panel (05/10/2024 5:41 AM EDT) Glucose, Plasma 101(H) 74 - 99 mg/dL 05/10/2024 6:23 AM EDT [facility] BUN, Plasma 28(H) 7 - 21 mg/dL 05/10/2024 6:23 AM EDT [facility] Creatinine, Plasma 1.28(H) 0.60 - 1.10 mg/dL 05/10/2024 6:23 AM EDT [facility] BUN/Creatinine Ratio 22 05/10/2024 6:23 AM EDT [facility] Sodium, Plasma 143 136 - 145 mmol/L 05/10/2024 6:23 AM EDT [facility] Potassium, Plasma 4.0 3.6 - 4.9 mmol/L 05/10/2024 6:23 AM EDT [facility] Chloride, Plasma 108(H) 97 - 107 mmol/L 05/10/2024 6:23 AM EDT [facility] CO2, Plasma 24 22 - 29 mmol/L 05/10/2024 6:23 AM EDT [facility] Anion Gap 11 6 - 16 mmol/L 05/10/2024 6:23 AM EDT [facility] Total Calcium, Plasma 7.8(L) 8.9 - 10.2 mg/dL 05/10/2024 6:23 AM EDT [facility] eGFRcr 49.9 mL/min/1.7 3m*2 05/10/2024 6:23 AM EDT [facility] Comment:Reported eGFRcr in m L/min/1.73m2 is based the CKD-EPI 2020 equation that does not use a race coefficient. Blood Venous blood specimen / Unknown Venipuncture / Unknown 05/10/2024 5:41 AM EDT 05/10/2024 5:53 AM EDT us Maite Austin MD LAB BLOOD ORDERABLES Final Resu lt [facility] [address] [place] [address] * (ABNORMAL) Hemogram (CBC) (05/10/2024 5:41 AM EDT) WBC Count 22.88(H) 3.70 - 10.30 10*3/uL LAB HEMATOLOGY METHOD 05/10/2024 6:05 AM EDT [facility] RBC Count 3.06(L) 3.90 - 5.20 10*6/uL LAB HEMATOLOGY METHOD 05/10/2024 6:05 AM EDT [facility] HGB 9.0(L) 11.2 - 15.7 g/dL LAB HEMATOLOGY METHOD 05/10/2024 6:05 AM EDT [facility] HCT 26.4(L) 34.0 - 45.0 % LAB HEMATOLOGY METHOD 05/10/2024 6:05 AM EDT [facility] Platelet Count 149(L) 155 - 369 10*3/uL LAB HEMATOLOGY METHOD 05/10/2024 6:05 AM EDT [facility] MCV 86 79 - 98 fL LAB HEMATOLOGY METHOD 05/10/2024 6:05 AM EDT [facility] MCH 29.4 26.0 - 32.0 pg LAB HEMATOLOGY METHOD 05/10/2024 6:05 AM EDT [facility] MCHC 34.1 30.7 - 35.5 g/dL LAB HEMATOLOGY METHOD 05/10/2024 6:05 AM EDT [facility] RDW 15.7(H) 11.5 - 14.5 % LAB HEMATOLOGY METHOD 05/10/2024 6:05 AM EDT [facility] MPV 11.8 8.8 - 12.5 fL LAB HEMATOLOGY METHOD 05/10/2024 6:05 AM EDT [facility] nRBC 0.6(H) <=0.0 per 100 WBCs LAB HEMATOLOGY METHOD 05/10/2024 6:05 AM EDT [facility] Blood Venous blood specimen / Unknown Venipuncture / Unknown 05/10/2024 5:41 AM EDT 05/10/2024 5:56 AM EDT us Maite Austin MD LAB BLOOD ORDERABLES Final Resu lt [facility] [address] [place] [address] * (ABNORMAL) POCT glucose meter (05/10/2024 12:09 AM EDT) POCT Glucose 112(H) 74 - 99 mg/dL 05/10/2024 12:10 AM [facility] Comment:Accuracy of a [...] Comment 05/10/2024 12:10 AM EDT [facility] J[employer] 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 Betty Young 025 12:10 AM EDT [facility] Device ID [id number] 05/10/2024 12:10 AM EDT [facility] Specimen Type POC Capillary 05/10/2024 12:10 AM EDT [facility] Blood Capillary blood specimen / Unknown 05/10/2024 12:09 AM EDT 05/10/2024 12:10 AM EDT Maite Austin MD LAB POINT OF CARE TE ST DOCKED DEVICE UNSOLICITED RESULTS Final Result Performing Organization Address [facility] de Phone Number [facility] [address] [place] [address] * POCT glucose meter (05/09/2024 5:15 PM EDT) [facility] POCT Glucose 89 74 - 99 mg/dL [...] 05/09/2024 5:17 PM EDT [facility] J[employer] 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 Luca Em 05/10/19 5:17 PM EDT [facility] Device ID [id number] 05/09/2024 5:17 PM EDT [facility] Specimen Type POC Capillary 05/09/2024 5:17 PM [facility]T [facility] Blood Capillary blood specimen / Unknown 05/09/2024 5:15 PM EDT 05/09/2024 5:17 PM EDT Maite Austin MD LAB POINT OF CARE TE ST DOCKED DEVICE UNSOLICITED RESULTS Final Result Performing Organization Address City/[facility] Co de Phone Number [facility] [address] [place] [address] * CT Abdomen Pelvis wo IV Contrast [...] MD on 05/09/2024 5:28 PM Reyna Obregon APRN IMG CT PROCEDURES Final R esult * [...] Abdominal radiograph 3 hours prior FINDINGS: Limited [id number] abdominal radiograph for the purpose of locating [...] Abdominal radiograph 3 hours prior FINDINGS: Limited [id number] abdominal radiograph for the purpose of locatingtube [...] - 80 % 05/09/2024 3:17 PM EDT [facility] Base Excess/Deficit, Venous 3.6(H) -2 - 3 mmol/L 05/09/2024 3:17 PM EDT [facility] HCO3, Venous 28.5(H) 22 - 26 mmol/L 05/09/2024 3:17 PM EDT [facility] Hemoglobin, Venous 9.7(L) 11.2 - 15.7 g/dL 05/09/2024 3:17 PM EDT [facility] Hematocrit, Venous 29.0(L) 34.0 - 45.0 % 05/09/2024 3:17 PM EDT [facility] Sodium, Venous 143 136 - 145 mmol/L 05/09/2024 3:17 PM EDT [facility] Potassium, Venous 4.1 3.6 - 4.9 mmol/L 05/09/2024 3:17 PM EDT [facility] POCT Chloride, Venous 107 97 - 107 mmol/L 05/09/2024 3:17 PM EDT [facility] Glucose, Venous 89 74 - 99 mg/dL 05/09/2024 3:17 PM EDT [facility] Ionized Calcium, Venous 4.4(L) 4.6 - 5.1 mg/dL 05/09/2024 3:17 PM EDT [facility] Lactate, Venous 3.3(H) 0.5 - 2.2 mmol/L 05/09/2024 3:17 PM EDT [facility] Body Temperature 37.0 Celsius 05/09/2024 3:17 PM EDT [facility] pH, Temp Corrected, Venous 7.42 7.32 - 7.43 05/09/2024 3:17 PM EDT [facility] pCO2, Temp Corrected, Venous 44 37 - 52 mm Hg 05/09/2024 3:17 PM EDT [facility] [employer] 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 Alka Corona 05/09/2024 3:17 PM EDT [facility] Acknowledged, Notified By RN 05/09/2024 3:17 PM EDT [facility] Critical Notify Time 1515 05/09/2024 3:17 PM EDT [facility] Critical Readback Y 05/09/2024 3:17 PM EDT [facility] Blood, Venous Whole blood specimen / Unknown 05/09/2024 3:15 PM EDT 05/09/2024 3:17 PM EDT Maite Austin MD LAB POINT OF CARE TE ST DOCKED DEVICE UNSOLICITED RESULTS Final Result Performing Organization Address [facility] de Phone Number [facility] [address] [place] [address] * POCT glucose meter (05/09/2024 2:21 PM EDT) [facility] POCT Glucose 93 74 - 99 mg/dL [...] for testing. Comment 05/09/2024 2:22 PM EDT [facility] [employer] 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 Luca Em 05/10/19 2:22 PM EDT [facility] Device ID [id number] 05/09/2024 2:22 PM EDT [facility] Specimen Type POC Venous 05/09/2024 2:22 PM EDT [facility] Blood Venous blood specimen / Unknown 05/09/2024 2:21 PM EDT 05/09/2024 2:22 PM EDT Maite Austin MD LAB POINT OF CARE TE ST DOCKED DEVICE UNSOLICITED RESULTS Final Result Performing Organization Address City/[facility] Co de Phone Number [facility] [address] [place] [address] * (ABNORMAL) Hemoglobin and hematocrit, blood (05/09/2024 2:21 PM EDT) [facility] HGB 9.8(L) 11.2 - 15.7 g/dL LAB HEMATOLOGY METHOD 05/09/2024 3:09 PM EDT [facility] HCT 28.0(L) 34.0 - 45.0 % LAB HEMATOLOGY METHOD 05/09/2024 3:09 PM EDT [facility] Blood Venous blood specimen / Unknown Venipuncture / Unknown 05/09/2024 2:21 PM EDT 05/09/2024 2:27 PM EDT Maite Austin MD LAB BLOOD ORDERABLES Final Resu lt Performing Organization Address [facility] Co de Phone Number [facility] [address] [place] [address] * POCT glucose meter (05/09/2024 12:42 PM EDT) [facility] POCT Glucose 97 74 - 99 mg/dL [...] Comment 05/09/2024 12:43 PM EDT [facility] 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 Gabriella, Katie 05/09/2024 12:43 PM EDT [facility] Device ID [id number] 05/09/2024 12:43 PM EDT [facility] Specimen Type POC Venous 05/09/2024 12:43 PM EDT [facility] Blood Venous blood specimen / Unknown 05/09/2024 12:42 PM EDT 05/09/2024 12:43 PM EDT Maite Austin MD LAB POINT OF CARE TE ST DOCKED DEVICE UNSOLICITED RESULTS Final Result Performing Organization Address City/[facility]/ZIP Co de Phone Number [facility] [address] [place] [address] * XR Abdomen 1 View (05/09/2024 12:21 [...] - 99 mg/dL 05/09/2024 12:20 PM EDT [facility] Comment:Accuracy of a glucos e result [...] Comment 05/09/2024 12:20 PM EDT [facility] [employer] 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 Luca Em 05/10/19 12:20 PM EDT [facility] Device ID [id number] 05/09/2024 12:20 PM EDT [facility] Specimen Type POC Venous 05/09/2024 12:20 PM EDT [facility] Blood Venous blood specimen / Unknown 05/09/2024 12:18 PM EDT 05/09/2024 12:20 PM EDT Maite Austin MD LAB POINT OF CARE TE ST DOCKED DEVICE UNSOLICITED RESULTS Final Result Performing Organization Address City/[facility] Co de Phone Number [facility] [address] [place] [address] * (ABNORMAL) POCT glucose meter (05/09/2024 12:06 PM EDT) POCT Glucose 124(H) 74 - [...] Comment 05/09/2024 12:19 PM EDT [facility]ALTH[facility] 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 Luca Em 05/10/19 12:19 PM EDT HEALTHCARE LAB Device ID [id number] 05/09/2024 12:19 PM EDT HEALTHCARE LAB Specimen Type POC Capillary 05/09/2024 12:19 PM EDT HEALTHCARE LAB Blood Capillary blood specimen / Unknown 05/09/2024 12:06 PM EDT 05/09/2024 12:19 PM EDT Maite Austin MD LAB POINT OF CARE TE ST DOCKED DEVICE UNSOLICITED RESULTS Final Result Performing Organization Address City/[facility]/ZIP Co de Phone Number [facility] [address] [place] [address] * (ABNORMAL) POCT glucose meter (05/09/2024 12:05 PM EDT) [facility] POCT Glucose 198(H) 74 - 99 mg/dL [...] Comment 05/09/2024 12:06 PM EDT HEALTHCARE [facility] 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 Luca Em 05/10/19 12:06 PM EDT HEALTHCARE LAB Device ID [id number] 05/09/2024 12:06 PM EDT HEALTHCARE LAB Specimen Type POC Capillary 05/09/2024 12:06 PM EDT HEALTH[facility]ARE LAB Blood Capillary blood specimen / Unknown 05/09/2024 12:05 PM EDT 05/09/2024 12:06 PM EDT us Maite Austin MD LAB POINT OF CARE TE ST DOCKED DEVICE UNSOLICITED RESULTS Final Result Performing Organization Address City/State/[facility] Co de Phone Number HEALTHCARE [facility] [address] [place] [address] * (ABNORMAL) POCT glucose meter (05/09/2024 12:02 PM EDT) [facility] POCT Glucose 42(LL) 74 - 99 mg/dL [...] 05/09/2024 12:03 PM EDT [facility] 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 Luca Em 05/10/19 12:03 PM EDT HEALTHCARE LAB Device ID [id number] 05/09/2024 12:03 PM EDT HEALTHCARE LAB Specimen Type POC Capillary 05/09/2024 12:03 PM EDT HEALTHCARE LAB Blood Capillary blood specimen / Unknown 05/09/2024 12:02 PM EDT 05/09/2024 12:03 PM EDT Maite Austin MD LAB POINT OF CARE TE ST DOCKED DEVICE UNSOLICITED RESULTS Final Result [facility] [address] [place] [address] * (ABNORMAL) POCT glucose meter (05/09/2024 12:00 PM EDT) POCT Glucose 37(LL) 74 - 99 mg/dL [...] Comment 05/09/2024 12:01 PM EDT HEALTHCARE LAB 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 Luca Em 05/10/19 12:01 PM EDT [facility]ARE [facility] Device ID [id number] 05/09/2024 12:01 PM EDT [facility]ALTH[facility]ARE LAB Specimen Type POC Capillary 05/09/2024 12:01 PM EDT [facility] Blood Capillary blood specimen / Unknown 05/09/2024 12:00 PM EDT 05/09/2024 12:01 PM EDT Maite Austin MD LAB POINT OF CARE TE ST DOCKED DEVICE UNSOLICITED RESULTS Final Result [facility] [address] [place] [address] * POCT glucose meter (05/09/2024 11:32 AM EDT) Pathologist [facility] POCT Glucose 77 74 - 99 mg/dL [...] Comment 05/09/2024 11:33 AM EDT HEALTHCARE LAB 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 Luca Em 05/10/19 11:33 AM EDT HEALTHCARE LAB Device ID [id number] 05/09/2024 11:33 AM EDT HEALTHCARE LAB Specimen Type POC Venous 05/09/2024 11:33 AM EDT [facility]ALTH[facility]ARE [facility] Blood Venous blood specimen / Unknown 05/09/2024 11:32 AM EDT 05/09/2024 11:33 AM EDT us Maite Austin MD LAB POINT OF CARE TE ST DOCKED DEVICE UNSOLICITED RESULTS Final Result Performing Organization Address City/[facility] Co de Phone Number [facility] [address] [place] [address] * BETA HYDROXYBUTYRIC ACID (05/09/2024 11:30 AM EDT) Beta-Hydroxybut yric Acid, Plasma 0.1 <=0.27 mmol/L 05/09/2024 6:19 PM EDT [facility] Blood Venous blood specimen / Unknown Venipuncture / Unknown 05/09/2024 11:30 AM EDT 05/09/2024 12:34 PM EDT us Gregg Burdick MD LAB BLOOD ORDERABLES Final Resu lt [facility] [address] [place] [address] * Phosphorus, Plasma (05/09/2024 11:30 AM EDT) Phosphorus, Plasma 3.8 2.5 - 4.5 mg/dL 05/09/2024 1:20 PM EDT [facility] Blood Venous blood specimen / Unknown Venipuncture / Unknown 05/09/2024 11:30 AM EDT 05/09/2024 12:34 PM EDT us Maite Austin MD LAB BLOOD ORDERABLES Final Resu lt [facility] [address] [place] [address] * (ABNORMAL) Basic Metabolic Panel, Plasma (05/09/2024 11:30 AM EDT) Glucose, Plasma 83 74 - 99 mg/dL 05/09/2024 1:20 PM EDT [facility] BUN, Plasma 33(H) 7 - 21 mg/dL 05/09/2024 1:20 PM EDT [facility] Creatinine, Plasma 1.62(H) 0.60 - 1.10 mg/dL 05/09/2024 1:20 PM EDT [facility] BUN/Creatinine Ratio 20 05/09/2024 1:20 PM EDT [facility] Sodium, Plasma 145 136 - 145 mmol/L 05/09/2024 1:20 PM EDT [facility] Potassium, Plasma 3.8 3.6 - 4.9 mmol/L 05/09/2024 1:20 PM EDT [facility] Chloride, Plasma 106 97 - 107 mmol/L 05/09/2024 1:20 PM EDT [facility] CO2, Plasma 25 22 - 29 mmol/L 05/09/2024 1:20 PM EDT [facility] Anion Gap 14 6 - 16 mmol/L 05/09/2024 1:20 PM EDT [facility] Total Calcium, Plasma 8.1(L) 8.9 - 10.2 mg/dL 05/09/2024 1:20 PM EDT [facility] eGFRcr 37.6 mL/min/1.7 3m*2 05/09/2024 1:20 PM EDT [facility] Comment:Reported eGFRcr in m L/min/1.73m2 is based the CKD-EPI 2020 equation that does not use a race coefficient. Blood Venous blood specimen / Unknown Venipuncture / Unknown 05/09/2024 11:30 AM EDT 05/09/2024 12:34 PM EDT us Maite Austin MD LAB BLOOD ORDERABLES Final Resu lt Performing Organization Address City/[facility]/ZIP Co de Phone Number [facility] [address] [place] [address] * (ABNORMAL) Magnesium (05/09/2024 11:30 AM EDT) Magnesium, Plasma 2.8(H) 1.9 - 2.4 mg/dL 05/09/2024 1:20 PM EDT [facility] Blood Venous blood specimen / Unknown Venipuncture / Unknown 05/09/2024 11:30 AM EDT 05/09/2024 12:34 PM EDT us Maite Austin MD LAB BLOOD ORDERABLES Final Resu lt Performing Organization Address [facility] Co de Phone Number [facility] [address] [place] [address] * (ABNORMAL) Prealbumin (05/09/2024 11:30 AM EDT) Prealbumin, Plasma 6.5(L) 20.0 - 41.0 mg/dL 05/09/2024 1:20 PM EDT [facility] Blood Venous blood specimen / Unknown Venipuncture / Unknown 05/09/2024 11:30 AM EDT 05/09/2024 12:34 PM EDT us Maite Austin MD LAB BLOOD ORDERABLES Final Resu lt Performing Organization Address [facility] Co de Phone Number [facility] [address] [place] [address] * (ABNORMAL) Hepatic function panel (05/09/2024 11:30 AM EDT) Conjugated Bilirubin, Plasma 0.3 <=0.3 mg/dL 05/09/2024 1:20 PM EDT [facility] Alkaline Phosphatase, Plasma 101 35 - 104 U/L 05/09/2024 1:20 PM EDT [facility] Total Bilirubin, Plasma 0.8 0.2 - 1.1 mg/dL 05/09/2024 1:20 PM EDT [facility] Albumin, Plasma 2.8(L) 3.5 - 5.2 g/dL 05/09/2024 1:20 PM EDT [facility] Total Protein 5.4(L) 6.3 - 7.9 g/dL 05/09/2024 1:20 PM EDT [facility] ALT, Plasma 54(H) 10 - 35 U/L 05/09/2024 1:20 PM EDT [facility] AST, Plasma 255(H) 10 - 35 U/L 05/09/2024 1:20 PM EDT [facility] Comment:Hemolyzed, result ma y be falsely increased. Blood Venous blood specimen / Unknown Venipuncture / Unknown 05/09/2024 11:30 AM EDT 05/09/2024 12:34 PM EDT us Reyna Obregon ADMISSIONS SUPERVISOR LAB BLOOD ORDERABLES Namrata l Result Performing Organization Address City/State/[facility] Co de Phone Number [facility] [address] [place] [address] * [facility], ADDL 30 MIN (05/09/2024 11:17 [...] Comment 05/09/2024 11:08 AM EDT [facility]ALTHCARE LAB 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 Luca Em 05/10/19 11:08 AM EDT HEALTHCARE LAB Device ID [id number] 05/09/2024 11:08 AM EDT [facility]ALTHCARE LAB Specimen Type POC Capillary 05/09/2024 11:08 AM EDT [facility]ALTH[facility] Blood Capillary blood specimen / Unknown 05/09/2024 11:06 AM EDT 05/09/2024 11:08 AM EDT Maite Austin MD LAB POINT OF CARE TE ST DOCKED DEVICE UNSOLICITED RESULTS Final Result Performing Organization Address City/State/[facility] Co de Phone Number [facility] [address] [place] [address] * PERIPHERAL IV (SMARTFORM LINK) (05/09/2024 10:10 [...] semipermeable dressing Comments: By Michelle Velasco RN us Maite Austin MD IV THERAPY ORDERABLES Final Res ult * (ABNORMAL) POCT glucose meter (05/09/2024 10:06 AM EDT) [facility] POCT Glucose 137(H) 74 - 99 mg/dL [...] Comment 05/09/2024 10:08 AM EDT HEALTHCARE LAB 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 ManavLuca 05/10/19 10:08 AM EDT [facility] Device ID [id number] 05/09/2024 10:08 AM EDT [facility] Specimen Type POC Capillary 05/09/2024 10:08 AM EDT [facility] Blood Capillary blood specimen / Unknown 05/09/2024 10:06 AM EDT 05/09/2024 10:08 AM EDT Maite Austin MD LAB POINT OF CARE TE ST DOCKED DEVICE UNSOLICITED RESULTS Final Result [facility] [address] [place] [address] * (ABNORMAL) POCT glucose meter (05/09/2024 9:48 AM EDT) [facility] POCT Glucose 222(H) 74 - 99 mg/dL [...] Comment 05/09/2024 9:49 AM EDT HEALTHCARE LAB 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 Rosmery Oneal 025 9:49 AM EDT HEALTHCARE LAB Device ID [id number] 05/09/2024 9:49 AM EDT [facility] Specimen Type POC Capillary 05/09/2024 9:49 AM EDT [facility] Blood Capillary blood specimen / Unknown 05/09/2024 9:48 AM EDT 05/09/2024 9:49 AM EDT Maite Austin MD LAB POINT OF CARE TE ST DOCKED DEVICE UNSOLICITED RESULTS Final Result [facility] [address] [place] [address] * XR Chest 1 View (05/09/2024 9:33 [...] ECG Atrial Rate 113 BPM MUSE ECG LA Interval 122 ms MUSE ECG QRSD Interval 108 ms MUSE ECG QT Interval 386 ms MUSE ECG QTC Interval 529 ms MUSE ECG P [place] 41 degrees MUSE ECG R [place] 61 degrees MUSE ECG T Wave [place] 27 degrees MUSE ECG Diagnosis Poor data quality, interpretation may be adversely affected MUSE ECG Diagnosis Sinus tachycardia MUSE ECG Diagnosis Low voltage QRS MUSE ECG Diagnosis Incomplete right bundle branch block MUSE ECG Diagnosis Prolonged QT MUSE ECG Diagnosis Abnormal ECG MUSE ECG Diagnosis MUSE ECG Diagnosis Confirmed by Graham Singleton ([id number]) on 05/09/2024 1:36:01 PM MUSE ECG 05/09/2024 [...] Comment 05/09/2024 9:36 AM EDT HEALTHCARE LAB 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 Luca Em 05/10/19 9:36 AM EDT HEALTHCARE LAB Device ID [id number] 05/09/2024 9:36 AM EDT HEALTHCARE LAB Specimen Type POC Capillary 05/09/2024 9:36 AM EDT [facility]ALTH[facility] Blood Capillary blood specimen / Unknown 05/09/2024 9:26 AM EDT 05/09/2024 9:36 AM EDT Maite Austin MD LAB POINT OF CARE TE ST DOCKED DEVICE UNSOLICITED RESULTS Final Result [facility] [address] [place] [address] * (ABNORMAL) POCT glucose meter (05/09/2024 9:08 AM EDT) [facility] POCT Glucose 64(L) 74 - 99 mg/dL [...] Comment 05/09/2024 9:09 AM EDT HEALTHCARE LAB 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 Luca Em 05/10/19 9:09 AM EDT [facility] Device ID [id number] 05/09/2024 9:09 AM EDT [facility]ALTH[facility]ARE LAB Specimen Type POC Capillary 05/09/2024 9:09 AM EDT [facility] Blood Capillary blood specimen / Unknown 05/09/2024 9:08 AM EDT 05/09/2024 9:09 AM EDT us Maite Austin MD LAB POINT OF CARE TE ST DOCKED DEVICE UNSOLICITED RESULTS Final Result Performing Organization Address City/[facility] Co de Phone Number [facility]ARE LAB [address] [place] [address] * (ABNORMAL) POCT glucose meter (05/09/2024 8:42 [...] Comment 05/09/2024 8:44 AM EDT [facility]ALTHCARE LAB 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 Luca Em 05/10/19 8:44 AM EDT HEALTHCARE LAB Device ID [id number] 05/09/2024 8:44 AM EDT [facility] Specimen Type POC Capillary 05/09/2024 8:44 AM EDT [facility] Blood Capillary blood specimen / Unknown 05/09/2024 8:42 AM EDT 05/09/2024 8:44 AM EDT us Maite Austin MD LAB POINT OF CARE TE ST DOCKED DEVICE UNSOLICITED RESULTS Final Result Performing Organization Address City/[facility]/ZIP Co de Phone Number [facility] [address] [place] [address] * (ABNORMAL) POCT glucose meter (05/09/2024 8:39 [...] Comment 05/09/2024 8:41 AM EDT HEALTHCARE LAB 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 Luca Em 05/10/19 8:41 AM EDT [facility] Device ID [id number] 05/09/2024 8:41 AM EDT HEALTHCARE LAB Specimen Type POC Capillary 05/09/2024 8:41 AM EDT [facility] Blood Capillary blood specimen / Unknown 05/09/2024 8:39 AM EDT 05/09/2024 8:41 AM EDT Maite Austin MD LAB POINT OF CARE TE ST DOCKED DEVICE UNSOLICITED RESULTS Final Result Performing Organization Address City/State/[facility] Co de Phone Number [facility]ARE [facility] [address] [place] [address] * Transfuse RBC (05/09/2024 7:01 AM EDT) us Maite Austin MD BLOOD TRANSFUSION ORDERABLES Fi nal Result * Transfuse RBC: 1 Units (05/09/2024 7:01 AM EDT) us Maite Austin MD BLOOD TRANSFUSION ORDERABLES Fi nal Result * POCT glucose meter (05/09/2024 3:01 AM EDT) [facility] POCT Glucose 97 74 - 99 mg/dL [...] for testing. Comment 05/09/2024 3:03 AM EDT [facility] 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 Betty Young 025 3:03 AM EDT HEALTHCARE LAB Device ID [id number] 05/09/2024 3:03 AM EDT HEALTHCARE LAB Specimen Type POC Venous 05/09/2024 3:03 AM EDT [facility]ALTH[facility]ARE LAB Blood Venous blood specimen / Unknown 05/09/2024 3:01 AM EDT 05/09/2024 3:03 AM EDT Maite Austin MD LAB POINT OF CARE TE ST DOCKED DEVICE UNSOLICITED RESULTS Final Result Performing Organization Address [facility] Co de Phone Number [facility] [address] [place] [address] * Type and screen (05/09/2024 2:24 AM EDT) [facility] ABO/Rh B Positive 05/09/2024 1:51 AM EDT BLOOD BANK Antibody Screen Negative 05/09/2024 1:51 AM EDT BLOOD BANK Specimen Expiration 05/12/2024 23:59 05/09/2024 1:51 AM EDT BLOOD BANK Blood Venous blood specimen / Unknown Venipuncture / Unknown 05/09/2024 2:24 AM EDT 05/09/2024 2:32 AM EDT Maite Austin MD LAB BLOOD BANK TEST ORDERABLES Final Result Performing Organization Address [facility] de Phone Number BLOOD BANK [address] [place] [address] * POCT glucose meter (05/09/2024 2:22 AM EDT) [facility] POCT Glucose 82 74 - 99 mg/dL [...] 05/09/2024 2:23 AM EDT [facility] 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 Betty Young 025 2:23 AM EDT [facility] Device ID [id number] 05/09/2024 2:23 AM EDT [facility] Specimen Type POC Venous 05/09/2024 2:23 AM EDT [facility] Blood Venous blood specimen / Unknown 05/09/2024 2:22 AM EDT 05/09/2024 2:23 AM EDT Maite Austin MD LAB POINT OF CARE TE ST DOCKED DEVICE UNSOLICITED RESULTS Final Result Performing Organization Address [facility] Co de Phone Number [facility] [address] [place] [address] * Prepare Leukocyte Reduced RBC: 1 Units (05/09/2024 1:51 AM EDT) Product Code [id number] CH BLOO D BANK Dispense Status Transfused BLOOD BANK Blood Expiration Date [id number] BLOOD BANK Unit Number [id number] CH B LOOD BANK Product Blood Type 7300 BLOOD BANK Blood Type B+ BLOOD BANK Crossmatch Compatible BLOOD BANK Other Maite Austin MD BLOOD BANK PRODUCT ORDERABLES F inal Result Performing Organization Address [facility] Co de Phone Number BLOOD BANK [address] * (ABNORMAL) Alanine Aminotransferase, Plasma (05/09/2024 12:52 AM EDT) ALT, Plasma 84(H) 10 - 35 U/L 05/09/2024 1:31 PM EDT [facility] Blood Venous blood specimen / Unknown Venipuncture / Unknown 05/09/2024 12:52 AM EDT 05/09/2024 12:57 AM EDT Maite Austin MD LAB BLOOD ORDERABLES Final Resu lt Performing Organization Address City/[facility]/ZIP Co de Phone Number [facility] [address] [place] [address] * (ABNORMAL) Aspartate Aminotransferase, Plasma (05/09/2024 12:52 AM EDT) AST, Plasma 296(H) 10 - 35 U/L 05/09/2024 1:31 PM EDT [facility] Blood Venous blood specimen / Unknown Venipuncture / Unknown 05/09/2024 12:52 AM EDT 05/09/2024 12:57 AM EDT us Maite Austin MD LAB BLOOD ORDERABLES Final Resu lt [facility] [address] [place] [address] * (ABNORMAL) Basic metabolic panel (05/09/2024 12:52 AM EDT) Glucose, Plasma 78 74 - 99 mg/dL 05/09/2024 1:25 AM EDT [facility] BUN, Plasma 35(H) 7 - 21 mg/dL 05/09/2024 1:25 AM EDT [facility] Creatinine, Plasma 1.72(H) 0.60 - 1.10 mg/dL 05/09/2024 1:25 AM EDT [facility] BUN/Creatinine Ratio 20 05/09/2024 1:25 AM EDT [facility] Sodium, Plasma 143 136 - 145 mmol/L 05/09/2024 1:25 AM EDT [facility] Potassium, Plasma 4.7 3.6 - 4.9 mmol/L 05/09/2024 1:25 AM EDT [facility] Chloride, Plasma 107 97 - 107 mmol/L 05/09/2024 1:25 AM EDT [facility] CO2, Plasma 25 22 - 29 mmol/L 05/09/2024 1:25 AM EDT [facility] Anion Gap 11 6 - 16 mmol/L 05/09/2024 1:25 AM EDT [facility] Total Calcium, Plasma 8.1(L) 8.9 - 10.2 mg/dL 05/09/2024 1:25 AM EDT [facility] eGFRcr 35.0 mL/min/1.7 3m*2 05/09/2024 1:25 AM EDT [facility] Comment:Reported eGFRcr in m L/min/1.73m2 is based the CKD-EPI 2020 equation that does not use a race coefficient. Blood Venous blood specimen / Unknown Venipuncture / Unknown 05/09/2024 12:52 AM EDT 05/09/2024 12:57 AM EDT us Maite Austin MD LAB BLOOD ORDERABLES Final Resu lt [facility] [address] [place] [address] * (ABNORMAL) Hemogram (CBC) (05/09/2024 12:52 AM EDT) WBC Count 16.81(H) 3.70 - 10.30 10*3/uL LAB HEMATOLOGY METHOD 05/09/2024 1:05 AM EDT [facility] RBC Count 2.62(L) 3.90 - 5.20 10*6/uL LAB HEMATOLOGY METHOD 05/09/2024 1:05 AM EDT [facility] HGB 7.6(L) 11.2 - 15.7 g/dL LAB HEMATOLOGY METHOD 05/09/2024 1:05 AM EDT [facility] HCT 22.5(L) 34.0 - 45.0 % LAB HEMATOLOGY METHOD 05/09/2024 1:05 AM EDT [facility] Platelet Count 129(L) 155 - 369 10*3/uL LAB HEMATOLOGY METHOD 05/09/2024 1:05 AM EDT [facility] MCV 86 79 - 98 fL LAB HEMATOLOGY METHOD 05/09/2024 1:05 AM EDT [facility] MCH 29.0 26.0 - 32.0 pg LAB HEMATOLOGY METHOD 05/09/2024 1:05 AM EDT [facility] MCHC 33.8 30.7 - 35.5 g/dL LAB HEMATOLOGY METHOD 05/09/2024 1:05 AM EDT [facility] RDW 16.9(H) 11.5 - 14.5 % LAB HEMATOLOGY METHOD 05/09/2024 1:05 AM EDT [facility] MPV 11.1 8.8 - 12.5 fL LAB HEMATOLOGY METHOD 05/09/2024 1:05 AM EDT [facility] nRBC 0.7(H) <=0.0 per 100 WBCs LAB HEMATOLOGY METHOD 05/09/2024 1:05 AM EDT [facility] Blood Venous blood specimen / Unknown Venipuncture / Unknown 05/09/2024 12:52 AM EDT 05/09/2024 12:57 AM EDT Maite Austin MD LAB BLOOD ORDERABLES Final Resu lt [facility] [address] [place] [address] * POCT glucose meter (05/08/2024 10:15 PM EDT) [facility] POCT Glucose 95 74 - 99 mg/dL [...] Comment 05/08/2024 10:17 PM EDT HEALTHCARE LAB 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 Katya Reyes 05/08/2024 10:17 PM EDT HEALTHCARE LAB Device ID [id number] 05/08/2024 10:17 PM EDT HEALTHCARE LAB Specimen Type POC Venous 05/08/2024 10:17 PM EDT [facility]ALTH[facility]ARE LAB Blood Venous blood specimen / Unknown 05/08/2024 10:15 PM EDT 05/08/2024 10:17 PM EDT Maite Austin MD LAB POINT OF CARE TE ST DOCKED DEVICE UNSOLICITED RESULTS Final Result Performing Organization Address City/[facility]/ZIP Co de Phone Number HEALTHCARE LAB [address] [place] [address] * POCT glucose meter (05/08/2024 10:14 PM EDT) [facility] POCT Glucose 05/18/2024 9:43 AM EDT [facility] [...] 05/18/2024 9:43 AM EDT [facility] 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 Katya Reyes 05/18/2024 9:43 AM EDT [facility] Device ID [id number] 05/18/2024 9:43 AM EDT [facility] [...] DEVICE UNSOLICITED RESULTS Edited Result - Final [facility] [address] [place] [address] * (ABNORMAL) CBC W/O Differential (05/08/2024 5:02 PM EDT) WBC Count 16.56(H) 3.70 - 10.30 10*3/uL LAB HEMATOLOGY METHOD 05/08/2024 5:23 PM EDT [facility] RBC Count 2.77(L) 3.90 - 5.20 10*6/uL LAB HEMATOLOGY METHOD 05/08/2024 5:23 PM EDT [facility] HGB 8.2(L) 11.2 - 15.7 g/dL LAB HEMATOLOGY METHOD 05/08/2024 5:23 PM EDT [facility] HCT 24.0(L) 34.0 - 45.0 % LAB HEMATOLOGY METHOD 05/08/2024 5:23 PM EDT [facility] Platelet Count 143(L) 155 - 369 10*3/uL LAB HEMATOLOGY METHOD 05/08/2024 5:23 PM EDT [facility] MCV 87 79 - 98 fL LAB HEMATOLOGY METHOD 05/08/2024 5:23 PM EDT [facility] MCH 29.6 26.0 - 32.0 pg LAB HEMATOLOGY METHOD 05/08/2024 5:23 PM EDT [facility] MCHC 34.2 30.7 - 35.5 g/dL LAB HEMATOLOGY METHOD 05/08/2024 5:23 PM EDT [facility] RDW 17.0(H) 11.5 - 14.5 % LAB HEMATOLOGY METHOD 05/08/2024 5:23 PM EDT [facility] MPV 11.3 8.8 - 12.5 fL LAB HEMATOLOGY METHOD 05/08/2024 5:23 PM EDT [facility] nRBC 0.6(H) <=0.0 per 100 WBCs LAB HEMATOLOGY METHOD 05/08/2024 5:23 PM EDT [facility] Blood Venous blood specimen / Unknown Venipuncture / Unknown 05/08/2024 5:02 PM EDT 05/08/2024 5:14 PM EDT us Maite Austin MD LAB BLOOD ORDERABLES Final Resu lt [facility] [address] [place] [address] * (ABNORMAL) Magnesium (05/08/2024 5:01 PM EDT) Magnesium, Plasma 2.8(H) 1.9 - 2.4 mg/dL 05/08/2024 5:44 PM EDT [facility] Blood Venous blood specimen / Unknown Venipuncture / Unknown 05/08/2024 5:01 PM EDT 05/08/2024 5:15 PM EDT us Maite Austin MD LAB BLOOD ORDERABLES Final Resu lt [facility] [address] [place] [address] * (ABNORMAL) Renal function panel (05/08/2024 5:01 PM EDT) Glucose, Plasma 102(H) 74 - 99 mg/dL 05/08/2024 5:44 PM EDT [facility] BUN, Plasma 34(H) 7 - 21 mg/dL 05/08/2024 5:44 PM EDT [facility] Creatinine, Plasma 1.80(H) 0.60 - 1.10 mg/dL 05/08/2024 5:44 PM EDT [facility] BUN/Creatinine Ratio 19 05/08/2024 5:44 PM EDT [facility] Sodium, Plasma 145 136 - 145 mmol/L 05/08/2024 5:44 PM EDT [facility] Potassium, Plasma 5.1(H) 3.6 - 4.9 mmol/L 05/08/2024 5:44 PM EDT [facility] Chloride, Plasma 108(H) 97 - 107 mmol/L 05/08/2024 5:44 PM EDT [facility] CO2, Plasma 22 22 - 29 mmol/L 05/08/2024 5:44 PM EDT [facility] Anion Gap 15 6 - 16 mmol/L 05/08/2024 5:44 PM EDT [facility] Total Calcium, Plasma 8.2(L) 8.9 - 10.2 mg/dL 05/08/2024 5:44 PM EDT [facility] Phosphorus, Plasma 5.5(H) 2.5 - 4.5 mg/dL 05/08/2024 5:44 PM EDT [facility] Albumin, Plasma 2.8(L) 3.5 - 5.2 g/dL 05/08/2024 5:44 PM EDT [facility] eGFRcr 33.1 mL/min/1.7 3m*2 05/08/2024 5:44 PM EDT [facility] Comment:Reported eGFRcr in m L/min/1.73m2 is based the CKD-EPI 2020 equation that does not use a race coefficient. Blood Venous blood specimen / Unknown Venipuncture / Unknown 05/08/2024 5:01 PM EDT 05/08/2024 5:15 PM EDT us Maite Austin MD LAB BLOOD ORDERABLES Final Resu lt [facility] [address] [place] [address] * [facility], ADDL 30 MIN (05/08/2024 1:26 [...] - 99 mg/dL 05/08/2024 12:24 PM EDT [facility]ALTHCARE LAB Comment:Accuracy of a [...] for testing. Comment 05/08/2024 12:24 PM EDT [facility] 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 Hernández, Melisa 05/08/2024 12:24 PM EDT [facility] Device ID [id number] 05/08/2024 12:24 PM EDT HEALTHCARE LAB Specimen Type POC Arterial 05/08/2024 12:24 PM EDT [facility]ALTH[facility]ARE LAB Blood Arterial blood specimen / Unknown 05/08/2024 12:23 PM EDT 05/08/2024 12:24 PM EDT us Maite Austin MD LAB POINT OF CARE TE ST DOCKED DEVICE UNSOLICITED RESULTS Final Result Performing Organization Address City/[facility] Co de Phone Number HEALTHCARE LAB [address] [place] [address] * (ABNORMAL) POCT glucose meter (05/08/2024 9:29 [...] Comment 05/08/2024 9:36 AM EDT HEALTHCARE LAB 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 Hernández, Melisa 05/08/2024 9:36 AM EDT HEALTHCARE LAB Device ID [id number] 05/08/2024 9:36 AM EDT [facility] Specimen Type POC Arterial 05/08/2024 9:36 AM EDT [facility] LAB Blood Arterial blood specimen / Unknown 05/08/2024 9:29 AM EDT 05/08/2024 9:36 AM EDT us Maite Austin MD LAB POINT OF CARE TE ST DOCKED DEVICE UNSOLICITED RESULTS Final Result Performing Organization Address City/[facility] Co de Phone Number [facility] [address] [place] [address] * (ABNORMAL) POCT glucose meter (05/08/2024 5:54 [...] Comment 05/08/2024 5:56 AM EDT HEALTHCARE LAB 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 Libby Mckeon 05/08/2024 5:56 AM EDT HEALTHCARE LAB Device ID [id number] 05/08/2024 5:56 AM EDT HEALTHCARE LAB Specimen Type POC Arterial 05/08/2024 5:56 AM EDT HEALTHCARE LAB Blood Arterial blood specimen / Unknown 05/08/2024 5:54 AM EDT 05/08/2024 5:56 AM EDT us Maite Austin MD LAB POINT OF CARE TE ST DOCKED DEVICE UNSOLICITED RESULTS Final Result [facility] [address] [place] [id number] * XR Chest 1 View (05/08/2024 2:42 [...] 1 VIEW COMPARISON: 05/07/2024 FINDINGS: Interval extubation. [place]-Ellis catheter has been removed. Right IJ introducer sheath remains in place. Unchanged position of bilateral chest tubes and mediastinal drains. Stable cardiomediastinal silhouette. Interval development of hazy left lung opacities. No large pleural effusion or discrete pneumothorax. Procedure Note Svetlana Scott MD - 05/08/2024 CLINICAL INDICATION: Post op TECHNIQUE: XR CHEST 1 VIEW COMPARISON: 05/07/2024 FINDINGS: Interval extubation. [place]-Ellis catheter has been removed. Right IJintroducer sheath [...] Svetlana Scott MD on 05/08/2024 7:36 AM us Maite Austin MD IMG XR PROCEDURES Final Result * (ABNORMAL) Basic metabolic panel (05/08/2024 12:46 AM EDT) Glucose, Plasma 119(H) 74 - 99 mg/dL 05/08/2024 1:28 AM EDT [facility] BUN, Plasma 28(H) 7 - 21 mg/dL 05/08/2024 1:28 AM EDT [facility] Creatinine, Plasma 1.84(H) 0.60 - 1.10 mg/dL 05/08/2024 1:28 AM EDT [facility] BUN/Creatinine Ratio 15 05/08/2024 1:28 AM EDT [facility] Sodium, Plasma 148(H) 136 - 145 mmol/L 05/08/2024 1:28 AM EDT [facility] Potassium, Plasma 4.6 3.6 - 4.9 mmol/L 05/08/2024 1:28 AM EDT [facility] Chloride, Plasma 115(H) 97 - 107 mmol/L 05/08/2024 1:28 AM EDT [facility] CO2, Plasma 20(L) 22 - 29 mmol/L 05/08/2024 1:28 AM EDT [facility] Anion Gap 13 6 - 16 mmol/L 05/08/2024 1:28 AM EDT [facility] Total Calcium, Plasma 8.2(L) 8.9 - 10.2 mg/dL 05/08/2024 1:28 AM EDT [facility] eGFRcr 32.3 mL/min/1.7 3m*2 05/08/2024 1:28 AM EDT [facility] Comment:Reported eGFRcr in m L/min/1.73m2 is based the CKD-EPI 2020 equation that does not use a race coefficient. Blood Venous blood specimen / Unknown Venipuncture / Unknown 05/08/2024 12:46 AM EDT 05/08/2024 12:57 AM EDT us Maite Austin MD LAB BLOOD ORDERABLES Final Resu lt [facility] [address] [place] [address] * (ABNORMAL) Blood gas, arterial (05/08/2024 12:23 AM EDT) pH, Arterial 7.30(L) 7.35 - 7.45 LAB HEMATOLOGY METHOD 05/08/2024 12:32 AM EDT [facility] pCO2, Arterial 47 35 - 48 mmHg LAB HEMATOLOGY METHOD 05/08/2024 12:32 AM EDT [facility] pO2, Arterial 90 83 - 108 mmHg LAB HEMATOLOGY METHOD 05/08/2024 12:32 AM EDT [facility] SO2, Measured, Arterial 98 94 - 98 % LAB HEMATOLOGY METHOD 05/08/2024 12:32 AM EDT [facility] Base Excess, Arterial -3.4(L) -2.0 - 3.0 mmol/L LAB HEMATOLOGY METHOD 05/08/2024 12:32 AM EDT [facility] Bicarbonate, Calculated, Arterial 23 22 - 26 mmol/L LAB HEMATOLOGY METHOD 05/08/2024 12:32 AM EDT [facility] Hematocrit, Whole Blood 27.3(L) 34.0 - 45.0 % LAB HEMATOLOGY METHOD 05/08/2024 12:32 AM EDT [facility] Sodium, Whole Blood 146(H) 136 - 145 mmol/L LAB HEMATOLOGY METHOD 05/08/2024 12:32 AM EDT [facility] Potassium, Whole Blood 4.2 3.6 - 4.9 mmol/L LAB HEMATOLOGY METHOD 05/08/2024 12:32 AM EDT [facility] Chloride, Whole Blood 115(H) 97 - 107 mmol/L LAB HEMATOLOGY METHOD 05/08/2024 12:32 AM EDT [facility] Glucose, Whole Blood 119(H) 74 - 99 mg/dL LAB HEMATOLOGY METHOD 05/08/2024 12:32 AM EDT [facility] Ionized Calcium, Whole Blood 4.7 4.6 - 5.1 mg/dL LAB HEMATOLOGY METHOD 05/08/2024 12:32 AM EDT [facility] Lactate, Arterial, Whole Blood 3.2(H) 0.5 - 1.6 mmol/L LAB HEMATOLOGY METHOD 05/08/2024 12:32 AM EDT [facility] Blood Arterial blood specimen / Unknown Arterial Puncture / Unknown 05/08/2024 12:23 AM EDT 05/08/2024 12:29 AM EDT us Maite Austin MD LAB BLOOD ORDERABLES Final Resu lt [facility] [address] [place] [address] * (ABNORMAL) POCT glucose meter (05/08/2024 12:21 [...] Comment 05/08/2024 12:23 AM EDT [facility] 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 Libby Mckeon 05/08/2024 12:23 AM EDT [facility] Device ID [id number] 05/08/2024 12:23 AM EDT [facility] Specimen Type POC Arterial 05/08/2024 12:23 AM EDT [facility] Blood Arterial blood specimen / Unknown 05/08/2024 12:21 AM EDT 05/08/2024 12:23 AM EDT us Maite Austin MD LAB POINT OF CARE TE ST DOCKED DEVICE UNSOLICITED RESULTS Final Result [facility] [address] [place] [address] * (ABNORMAL) CBC (05/08/2024 12:21 AM EDT) WBC Count 16.25(H) 3.70 - 10.30 10*3/uL LAB HEMATOLOGY METHOD 05/08/2024 1:04 AM EDT [facility] RBC Count 3.09(L) 3.90 - 5.20 10*6/uL LAB HEMATOLOGY METHOD 05/08/2024 1:04 AM EDT [facility] HGB 9.2(L) 11.2 - 15.7 g/dL LAB HEMATOLOGY METHOD 05/08/2024 1:04 AM EDT [facility] HCT 26.6(L) 34.0 - 45.0 % LAB HEMATOLOGY METHOD 05/08/2024 1:04 AM EDT [facility] Platelet Count 159 155 - 369 10*3/uL LAB HEMATOLOGY METHOD 05/08/2024 1:04 AM EDT [facility] MCV 86 79 - 98 fL LAB HEMATOLOGY METHOD 05/08/2024 1:04 AM EDT [facility] MCH 29.8 26.0 - 32.0 pg LAB HEMATOLOGY METHOD 05/08/2024 1:04 AM EDT [facility] MCHC 34.6 30.7 - 35.5 g/dL LAB HEMATOLOGY METHOD 05/08/2024 1:04 AM EDT [facility] RDW 17.0(H) 11.5 - 14.5 % LAB HEMATOLOGY METHOD 05/08/2024 1:04 AM EDT [facility] MPV 11.2 8.8 - 12.5 fL LAB HEMATOLOGY METHOD 05/08/2024 1:04 AM EDT [facility] nRBC 0.0 <=0.0 per 100 WBCs LAB HEMATOLOGY METHOD 05/08/2024 1:04 AM EDT [facility] Blood Venous blood specimen / Unknown Venipuncture / Unknown 05/08/2024 12:21 AM EDT 05/08/2024 12:40 AM EDT Maite Austin MD LAB BLOOD ORDERABLES Final Resu lt Performing Organization Address City/[facility]/ZIP Co de Phone Number [facility] [address] [place] [address] * ECG Adult (05/07/2024 11:23 PM EDT) [facility] EKG DIAGNOSIS CLASS Abnormal MUSE ECG Ventricular Rate 106 BPM MUSE ECG Atrial Rate 106 BPM MUSE ECG LA Interval 136 ms MUSE ECG QRSD Interval 104 ms MUSE ECG QT Interval 406 ms MUSE ECG QTC Interval 539 ms MUSE ECG P [place] 42 degrees MUSE ECG R [place] 62 degrees MUSE ECG T Wave [place] 36 degrees MUSE ECG Diagnosis Sinus tachycardia [...] ECG ORDERABLES Final Result Performing Organization Address [facility] de Phone Number MUSE ECG * Potassium (05/07/2024 11:15 PM EDT) [facility] Potassium, Plasma 4.3 3.6 - 4.9 mmol/L 05/07/2024 11:41 PM EDT [facility] Blood Venous blood specimen / Unknown Venipuncture / Unknown 05/07/2024 11:15 PM EDT 05/07/2024 11:21 PM EDT Maite Austin MD LAB BLOOD ORDERABLES Final Resu lt Performing Organization Address [facility] Co de Phone Number [facility] [address] [place] [address] * (ABNORMAL) POCT glucose meter (05/07/2024 11:04 PM EDT) [facility] POCT Glucose 247(H) 74 - 99 mg/dL 05/07/2024 11:06 PM EDT [facility] Comment:Accuracy of [...] Comment 05/07/2024 11:06 PM EDT [facility] 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 Libby Mckeon 05/07/2024 11:06 PM EDT [facility] Device ID [id number] 05/07/2024 11:06 PM EDT [facility] Specimen Type POC Arterial 05/07/2024 11:06 PM EDT [facility] Blood Arterial blood specimen / Unknown 05/07/2024 11:04 PM EDT 05/07/2024 11:06 PM EDT Maite Austin MD LAB POINT OF CARE TE ST DOCKED DEVICE UNSOLICITED RESULTS Final Result [facility] [address] [place] [address] * (ABNORMAL) POCT glucose meter (05/07/2024 10:38 PM EDT) [facility] POCT Glucose 121(H) 74 - 99 mg/dL 05/07/2024 11:04 PM EDT [facility] Comment:Accuracy of [...] 05/07/2024 11:04 PM EDT [facility] 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 Libby Mckeon 05/07/2024 11:04 PM EDT [facility] Device ID [id number] 05/07/2024 11:04 PM EDT [facility] Specimen Type POC Arterial 05/07/2024 11:04 PM EDT [facility] Blood Arterial blood specimen / Unknown 05/07/2024 10:38 PM EDT 05/07/2024 11:04 PM EDT Maite Austin MD LAB POINT OF CARE TE ST DOCKED DEVICE UNSOLICITED RESULTS Final Result Performing Organization Address [facility] Co de Phone Number [facility] [address] [place] [address] * (ABNORMAL) POCT glucose meter (05/07/2024 10:22 [...] Comment 05/07/2024 10:23 PM EDT [facility] 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 Libby Mckeon 05/07/2024 10:23 PM EDT [facility] Device ID [id number] 05/07/2024 10:23 PM EDT [facility] Specimen Type POC Arterial 05/07/2024 10:23 PM EDT [facility] Blood Arterial blood specimen / Unknown 05/07/2024 10:22 PM EDT 05/07/2024 10:23 PM EDT us Maite Austin MD LAB POINT OF CARE TE ST DOCKED DEVICE UNSOLICITED RESULTS Final Result Performing Organization Address City/[facility] Co de Phone Number [facility] [address] [place] [address] * (ABNORMAL) POCT glucose meter (05/07/2024 9:20 [...] Comment 05/07/2024 9:21 PM EDT [facility] 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 Libby Mckeon 05/07/2024 9:21 PM EDT [facility] Device ID [id number] 05/07/2024 9:21 PM EDT [facility] Specimen Type POC Arterial 05/07/2024 9:21 PM EDT [facility] Blood Arterial blood specimen / Unknown 05/07/2024 9:20 PM EDT 05/07/2024 9:21 PM EDT Maite Austin MD LAB POINT OF CARE TE ST DOCKED DEVICE UNSOLICITED RESULTS Final Result Performing Organization Address City/[facility] Co de Phone Number [facility] [address] [place] [address] * (ABNORMAL) Magnesium (05/07/2024 7:58 PM EDT) Magnesium, Plasma 3.1(H) 1.9 - 2.4 mg/dL 05/07/2024 8:58 PM EDT [facility] Blood Venous blood specimen / Unknown Venipuncture / Unknown 05/07/2024 7:58 PM EDT 05/07/2024 8:24 PM EDT us Maite Austin MD LAB BLOOD ORDERABLES Final Resu lt [facility] [address] [place] [address] * (ABNORMAL) Renal function panel (05/07/2024 7:58 PM EDT) Glucose, Plasma 135(H) 74 - 99 mg/dL 05/07/2024 8:58 PM EDT [facility] BUN, Plasma 28(H) 7 - 21 mg/dL 05/07/2024 8:58 PM EDT [facility] Creatinine, Plasma 1.92(H) 0.60 - 1.10 mg/dL 05/07/2024 8:58 PM EDT [facility] BUN/Creatinine Ratio 15 05/07/2024 8:58 PM EDT [facility] Sodium, Plasma 148(H) 136 - 145 mmol/L 05/07/2024 8:58 PM EDT [facility] Potassium, Plasma 5.5(H) 3.6 - 4.9 mmol/L 05/07/2024 8:58 PM EDT [facility] Chloride, Plasma 114(H) 97 - 107 mmol/L 05/07/2024 8:58 PM EDT [facility] CO2, Plasma 20(L) 22 - 29 mmol/L 05/07/2024 8:58 PM EDT [facility] Anion Gap 14 6 - 16 mmol/L 05/07/2024 8:58 PM EDT [facility] Total Calcium, Plasma 8.4(L) 8.9 - 10.2 mg/dL 05/07/2024 8:58 PM EDT [facility] Phosphorus, Plasma 6.6(H) 2.5 - 4.5 mg/dL 05/07/2024 8:58 PM EDT [facility] Albumin, Plasma 3.0(L) 3.5 - 5.2 g/dL 05/07/2024 8:58 PM EDT [facility] eGFRcr 30.7 mL/min/1.7 3m*2 05/07/2024 8:58 PM EDT [facility] Comment:Reported eGFRcr in m L/min/1.73m2 is based the CKD-EPI 2020 equation that does not use a race coefficient. Blood Venous blood specimen / Unknown Venipuncture / Unknown 05/07/2024 7:58 PM EDT 05/07/2024 8:24 PM EDT us Maite Austin MD LAB BLOOD ORDERABLES Final Resu lt [facility] [address] [place] [address] * (ABNORMAL) POCT glucose meter (05/07/2024 5:58 PM EDT) POCT Glucose 125(H) 74 - [...] 05/07/2024 6:00 PM EDT [facility] 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 Melisa Hernández 05/07/2024 6:00 PM EDT [facility] Device ID [id number] 05/07/2024 6:00 PM EDT [facility] Specimen Type POC Arterial 05/07/2024 6:00 PM EDT [facility] Blood Arterial blood specimen / Unknown 05/07/2024 5:58 PM EDT 05/07/2024 6:00 PM EDT Maite Austin MD LAB POINT OF CARE TE ST DOCKED DEVICE UNSOLICITED RESULTS Final Result Performing Organization Address City/State/[facility] Co de Phone Number [facility] [address] [place] [address] * (ABNORMAL) POCT glucose meter (05/07/2024 1:50 PM EDT) [facility] POCT Glucose 122(H) 74 - 99 mg/dL [...] 05/07/2024 1:52 PM EDT [facility] 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 Melisa Hernández 05/07/2024 1:52 PM EDT [facility] Device ID [id number] 05/07/2024 1:52 PM EDT [facility] Specimen Type POC Arterial 05/07/2024 1:52 PM EDT [facility] Blood Arterial blood specimen / Unknown 05/07/2024 1:50 PM EDT 05/07/2024 1:52 PM EDT us Maite Austin MD LAB POINT OF CARE TE ST DOCKED DEVICE UNSOLICITED RESULTS Final Result [facility] [address] [place] [id number] * LA CRITICAL CARE, ADDL 30 MIN (05/07/2024 10:11 [...] LAB HEMATOLOGY METHOD 05/07/2024 8:27 AM EDT [facility] pCO2, Mixed Venous 50 37 - 52 mmHg LAB HEMATOLOGY METHOD 05/07/2024 8:27 AM EDT [facility] pO2, Mixed Venous 52(H) 25 - 40 mmHg LAB HEMATOLOGY METHOD 05/07/2024 8:27 AM EDT [facility] SO2, Measured, Mixed Venous 86(H) 65 - 80 % LAB HEMATOLOGY METHOD 05/07/2024 8:27 AM EDT [facility] Bicarbonate, Calculated, Mixed Venous 23 22 - 26 mmol/L LAB HEMATOLOGY METHOD 05/07/2024 8:27 AM EDT [facility] Base Excess, Mixed Venous -3.8(L) -2.0 - 3.0 mmol/L LAB HEMATOLOGY METHOD 05/07/2024 8:27 AM EDT [facility] Hematocrit, Whole Blood 29.8(L) 34.0 - 45.0 % LAB HEMATOLOGY METHOD 05/07/2024 8:27 AM EDT [facility] Sodium, Whole Blood 151(H) 136 - 145 mmol/L LAB HEMATOLOGY METHOD 05/07/2024 8:27 AM EDT [facility] Potassium, Whole Blood 4.5 3.6 - 4.9 mmol/L LAB HEMATOLOGY METHOD 05/07/2024 8:27 AM EDT [facility] Chloride, Whole Blood 119(H) 97 - 107 mmol/L LAB HEMATOLOGY METHOD 05/07/2024 8:27 AM EDT [facility] Ionized Calcium, Whole Blood 4.9 4.6 - 5.1 mg/dL LAB HEMATOLOGY METHOD 05/07/2024 8:27 AM EDT [facility] Glucose, Whole Blood 112(H) 74 - 99 mg/dL LAB HEMATOLOGY METHOD 05/07/2024 8:27 AM EDT [facility] Oxyhemoglobin, Mixed Venous, Whole Blood 83.4(H) 40.0 - 70.0 % LAB HEMATOLOGY METHOD 05/07/2024 8:27 AM EDT [facility] Hemoglobin Reduced, Mixed Venous, Whole Blood 14.2 % LAB HEMATOLOGY METHOD 05/07/2024 8:27 AM EDT [facility] Total Hemoglobin, Mixed Venous, Whole Blood 9.7(L) 11.2 - 15.7 g/dL LAB HEMATOLOGY METHOD 05/07/2024 8:27 AM EDT [facility] Blood Mixed venous blood specimen / Unknown Venipuncture / Unknown 05/07/2024 8:08 AM EDT 05/07/2024 8:23 AM EDT us Maite Austin MD LAB BLOOD ORDERABLES Final Resu lt [facility] [address] [place] [address] * (ABNORMAL) Blood gas, arterial (05/07/2024 8:08 AM EDT) pH, Arterial 7.29(L) 7.35 - 7.45 LAB HEMATOLOGY METHOD 05/07/2024 8:26 AM EDT [facility] pCO2, Arterial 48 35 - 48 mmHg LAB HEMATOLOGY METHOD 05/07/2024 8:26 AM EDT [facility] pO2, Arterial 148(H) 83 - 108 mmHg LAB HEMATOLOGY METHOD 05/07/2024 8:26 AM EDT [facility] SO2, Measured, Arterial 99(H) 94 - 98 % LAB HEMATOLOGY METHOD 05/07/2024 8:26 AM EDT [facility] Base Excess, Arterial -3.5(L) -2.0 - 3.0 mmol/L LAB HEMATOLOGY METHOD 05/07/2024 8:26 AM EDT [facility] Bicarbonate, Calculated, Arterial 23 22 - 26 mmol/L LAB HEMATOLOGY METHOD 05/07/2024 8:26 AM EDT [facility] Hematocrit, Whole Blood 30.5(L) 34.0 - 45.0 % LAB HEMATOLOGY METHOD 05/07/2024 8:26 AM EDT [facility] Sodium, Whole Blood 151(H) 136 - 145 mmol/L LAB HEMATOLOGY METHOD 05/07/2024 8:26 AM EDT [facility] Potassium, Whole Blood 4.6 3.6 - 4.9 mmol/L LAB HEMATOLOGY METHOD 05/07/2024 8:26 AM EDT [facility] Chloride, Whole Blood 119(H) 97 - 107 mmol/L LAB HEMATOLOGY METHOD 05/07/2024 8:26 AM EDT [facility] Glucose, Whole Blood 118(H) 74 - 99 mg/dL LAB HEMATOLOGY METHOD 05/07/2024 8:26 AM EDT [facility] Ionized Calcium, Whole Blood 5.0 4.6 - 5.1 mg/dL LAB HEMATOLOGY METHOD 05/07/2024 8:26 AM EDT [facility] Lactate, Arterial, Whole Blood 3.5(H) 0.5 - 1.6 mmol/L LAB HEMATOLOGY METHOD 05/07/2024 8:26 AM EDT [facility] Blood Arterial blood specimen / Unknown Arterial Puncture / Unknown 05/07/2024 8:08 AM EDT 05/07/2024 8:23 AM EDT us Maite Austin MD LAB BLOOD ORDERABLES Final Resu lt Performing Organization Address City/[facility]/ZIP Co de Phone Number [facility] [address] [place] [address] * (ABNORMAL) Potassium, Plasma (05/07/2024 8:08 AM EDT) Potassium, Plasma 5.0(H) 3.6 - 4.9 mmol/L 05/07/2024 8:55 AM EDT [facility] Blood Venous blood specimen / Unknown Venipuncture / Unknown 05/07/2024 8:08 AM EDT 05/07/2024 8:33 AM EDT us Maite Austin MD LAB BLOOD ORDERABLES Final Resu lt Performing Organization Address [facility] Co de Phone Number [facility] [address] [place] [address] * (ABNORMAL) Hematocrit (05/07/2024 8:08 AM EDT) HCT 29.0(L) 34.0 - 45.0 % LAB HEMATOLOGY METHOD 05/07/2024 8:46 AM EDT [facility] Blood Venous blood specimen / Unknown Venipuncture / Unknown 05/07/2024 8:08 AM EDT 05/07/2024 8:36 AM EDT us Maite Austin MD LAB BLOOD ORDERABLES Final Resu lt Performing Organization Address City/[facility]/ZIP Co de Phone Number [facility] [address] [place] [address] * (ABNORMAL) Hemoglobin (05/07/2024 8:08 AM EDT) HGB 9.9(L) 11.2 - 15.7 g/dL LAB HEMATOLOGY METHOD 05/07/2024 8:46 AM EDT [facility] Blood Venous blood specimen / Unknown Venipuncture / Unknown 05/07/2024 8:08 AM EDT 05/07/2024 8:36 AM EDT us Maite Austin MD LAB BLOOD ORDERABLES Final Resu lt [facility] [address] [place] [address] * (ABNORMAL) POCT arterial blood gas gem (05/07/2024 6:35 AM EDT) pH, Arterial 7.32(L) 7.35 - 7.45 05/07/2024 6:36 AM EDT [facility] pCO2, Arterial 44 35 - 48 mm Hg 05/07/2024 6:36 AM EDT [facility] pO2, Arterial 80(L) 83 - 108 mm Hg 05/07/2024 6:36 AM EDT [facility] SO2, Arterial 98 94 - 98 % 05/07/2024 6:36 AM EDT [facility] FIO2 40.0 % 05/07/2024 6:36 AM EDT [facility] Base Excess, Arterial -3.3(L) -2 - 3 mmol/L 05/07/2024 6:36 AM EDT [facility] HCO3, Arterial 22.7 22 - 26 mmol/L 05/07/2024 6:36 AM EDT [facility] Total Hemoglobin, Arterial, Whole Blood 9.7(L) 11.2 - 15.7 g/dL 05/07/2024 6:36 AM EDT [facility] Hematocrit, Arterial 29.0(L) 34.0 - 45.0 % 05/07/2024 6:36 AM EDT [facility] Sodium, Arterial 151(H) 136 - 145 mmol/L 05/07/2024 6:36 AM EDT [facility] Potassium, Arterial 4.9 3.6 - 4.9 mmol/L 05/07/2024 6:36 AM EDT [facility] Chloride, Whole Blood 118(H) 97 - 107 mmol/L 05/07/2024 6:36 AM EDT [facility] Glucose, Arterial 114(H) 74 - 99 mg/dL 05/07/2024 6:36 AM EDT [facility] Ionized Calcium, Arterial 5.5(H) 4.6 - 5.1 mg/dL 05/07/2024 6:36 AM EDT [facility] Lactate, Arterial 3.9(H) 0.5 - 1.6 mmol/L 05/07/2024 6:36 AM EDT [facility] Body Temperature 38.0 Celsius 05/07/2024 6:36 AM EDT [facility] pH, Temp Corrected, Arterial 7.31(L) 7.35 - 7.45 05/07/2024 6:36 AM EDT [facility] pCO2, Temp Corrected, Arterial 46 35 - 48 mm Hg 05/07/2024 6:36 AM EDT [facility] pO2, Temp Corrected, Arterial 85 83 - 108 mm Hg 05/07/2024 6:36 AM EDT [facility] 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 Light, Vicky 05/07/2024 6:36 AM EDT [facility] Blood, Arterial Whole blood specimen / Unknown 05/07/2024 6:35 AM EDT 05/07/2024 6:36 AM EDT us Maite Austin MD LAB POINT OF CARE TE ST DOCKED DEVICE UNSOLICITED RESULTS Final Result Performing Organization Address City/State/[facility] Co de Phone Number [facility] [address] [place] [address] * XR Chest 1 View (05/07/2024 5:42 [...] ECG Atrial Rate 79 BPM MUSE ECG LA Interval 126 ms MUSE ECG QRSD Interval 96 ms MUSE ECG QT Interval 430 ms MUSE ECG QTC Interval 493 ms MUSE ECG P [place] 70 degrees MUSE ECG R [place] 78 degrees MUSE ECG T Wave [place] 22 degrees MUSE ECG Diagnosis Normal sinus [...] LAB HEMATOLOGY METHOD 05/07/2024 4:09 AM EDT [facility] pCO2, Arterial 40 35 - 48 mmHg LAB HEMATOLOGY METHOD 05/07/2024 4:09 AM EDT [facility] pO2, Arterial 172(H) 83 - 108 mmHg LAB HEMATOLOGY METHOD 05/07/2024 4:09 AM EDT [facility] SO2, Measured, Arterial 100(H) 94 - 98 % LAB HEMATOLOGY METHOD 05/07/2024 4:09 AM EDT [facility] Base Excess, Arterial -3.1(L) -2.0 - 3.0 mmol/L LAB HEMATOLOGY METHOD 05/07/2024 4:09 AM EDT [facility] Bicarbonate, Calculated, Arterial 22 22 - 26 mmol/L LAB HEMATOLOGY METHOD 05/07/2024 4:09 AM EDT [facility] Hematocrit, Whole Blood 31.2(L) 34.0 - 45.0 % LAB HEMATOLOGY METHOD 05/07/2024 4:09 AM EDT [facility] Sodium, Whole Blood 150(H) 136 - 145 mmol/L LAB HEMATOLOGY METHOD 05/07/2024 4:09 AM EDT [facility] Potassium, Whole Blood 4.4 3.6 - 4.9 mmol/L LAB HEMATOLOGY METHOD 05/07/2024 4:09 AM EDT [facility] Chloride, Whole Blood 117(H) 97 - 107 mmol/L LAB HEMATOLOGY METHOD 05/07/2024 4:09 AM EDT [facility] Glucose, Whole Blood 125(H) 74 - 99 mg/dL LAB HEMATOLOGY METHOD 05/07/2024 4:09 AM EDT [facility] Ionized Calcium, Whole Blood 4.3(L) 4.6 - 5.1 mg/dL LAB HEMATOLOGY METHOD 05/07/2024 4:09 AM EDT [facility] Lactate, Arterial, Whole Blood 4.6(H) 0.5 - 1.6 mmol/L LAB HEMATOLOGY METHOD 05/07/2024 4:09 AM EDT [facility] Blood Arterial blood specimen / Unknown Arterial Puncture / Unknown 05/07/2024 3:52 AM EDT 05/07/2024 4:04 AM EDT us Maite Austin MD LAB BLOOD ORDERABLES Final Resu lt [facility] [address] [place] [address] * (ABNORMAL) Blood gas panel with oximetry, mixed venous (05/07/2024 12:46 AM EDT) pH, Mixed Venous 7.24(LL) 7.32 - 7.43 LAB HEMATOLOGY METHOD 05/07/2024 1:12 AM EDT [facility] pCO2, Mixed Venous 61(HH) 37 - 52 mmHg LAB HEMATOLOGY METHOD 05/07/2024 1:12 AM EDT [facility] pO2, Mixed Venous 28 25 - 40 mmHg LAB HEMATOLOGY METHOD 05/07/2024 1:12 AM EDT [facility] SO2, Measured, Mixed Venous 46(L) 65 - 80 % LAB HEMATOLOGY METHOD 05/07/2024 1:12 AM EDT [facility] Bicarbonate, Calculated, Mixed Venous 26 22 - 26 mmol/L LAB HEMATOLOGY METHOD 05/07/2024 1:12 AM EDT [facility] Base Excess, Mixed Venous -2.4(L) -2.0 - 3.0 mmol/L LAB HEMATOLOGY METHOD 05/07/2024 1:12 AM EDT [facility] Hematocrit, Whole Blood 38.4 34.0 - 45.0 % LAB HEMATOLOGY METHOD 05/07/2024 1:12 AM EDT [facility] Sodium, Whole Blood 149(H) 136 - 145 mmol/L LAB HEMATOLOGY METHOD 05/07/2024 1:12 AM EDT [facility] Potassium, Whole Blood 4.7 3.6 - 4.9 mmol/L LAB HEMATOLOGY METHOD 05/07/2024 1:12 AM EDT [facility] Chloride, Whole Blood 115(H) 97 - 107 mmol/L LAB HEMATOLOGY METHOD 05/07/2024 1:12 AM EDT [facility] Ionized Calcium, Whole Blood 4.7 4.6 - 5.1 mg/dL LAB HEMATOLOGY METHOD 05/07/2024 1:12 AM EDT [facility] Glucose, Whole Blood 141(H) 74 - 99 mg/dL LAB HEMATOLOGY METHOD 05/07/2024 1:12 AM EDT [facility] Oxyhemoglobin, Mixed Venous, Whole Blood 44.6 40.0 - 70.0 % LAB HEMATOLOGY METHOD 05/07/2024 1:12 AM EDT [facility] Hemoglobin Reduced, Mixed Venous, Whole Blood 53.2 % LAB HEMATOLOGY METHOD 05/07/2024 1:12 AM EDT [facility] Total Hemoglobin, Mixed Venous, Whole Blood 12.5 11.2 - 15.7 g/dL LAB HEMATOLOGY METHOD 05/07/2024 1:12 AM EDT [facility] Blood Mixed venous blood specimen / Unknown Venipuncture / Unknown 05/07/2024 12:46 AM EDT 05/07/2024 1:10 AM EDT us Maite Austin MD LAB BLOOD ORDERABLES Final Resu lt [facility] [address] [place] [address] * (ABNORMAL) Basic metabolic panel (05/07/2024 12:46 AM EDT) Glucose, Plasma 139(H) 74 - 99 mg/dL 05/07/2024 1:44 AM EDT [facility] BUN, Plasma 16 7 - 21 mg/dL 05/07/2024 1:44 AM EDT [facility] Creatinine, Plasma 1.48(H) 0.60 - 1.10 mg/dL 05/07/2024 1:44 AM EDT [facility] BUN/Creatinine Ratio 11 05/07/2024 1:44 AM EDT [facility] Sodium, Plasma 149(H) 136 - 145 mmol/L 05/07/2024 1:44 AM EDT [facility] Potassium, Plasma 5.2(H) 3.6 - 4.9 mmol/L 05/07/2024 1:44 AM EDT [facility] Chloride, Plasma 117(H) 97 - 107 mmol/L 05/07/2024 1:44 AM EDT [facility] CO2, Plasma 20(L) 22 - 29 mmol/L 05/07/2024 1:44 AM EDT [facility] Anion Gap 12 6 - 16 mmol/L 05/07/2024 1:44 AM EDT [facility] Total Calcium, Plasma 8.1(L) 8.9 - 10.2 mg/dL 05/07/2024 1:44 AM EDT [facility] eGFRcr 41.9 mL/min/1.7 3m*2 05/07/2024 1:44 AM EDT [facility] Comment:Reported eGFRcr in m L/min/1.73m2 is based the CKD-EPI 2020 equation that does not use a race coefficient. Blood Venous blood specimen / Unknown Venipuncture / Unknown 05/07/2024 12:46 AM EDT 05/07/2024 1:10 AM EDT us Maite Austin MD LAB BLOOD ORDERABLES Final Resu lt [facility] [address] [place] [address] * (ABNORMAL) CBC (05/07/2024 12:46 AM EDT) WBC Count 20.23(H) 3.70 - 10.30 10*3/uL LAB HEMATOLOGY METHOD 05/07/2024 1:19 AM EDT [facility] RBC Count 4.31 3.90 - 5.20 10*6/uL LAB HEMATOLOGY METHOD 05/07/2024 1:19 AM EDT [facility] HGB 12.8 11.2 - 15.7 g/dL LAB HEMATOLOGY METHOD 05/07/2024 1:19 AM EDT [facility] HCT 36.6 34.0 - 45.0 % LAB HEMATOLOGY METHOD 05/07/2024 1:19 AM EDT [facility] Platelet Count 249 155 - 369 10*3/uL LAB HEMATOLOGY METHOD 05/07/2024 1:19 AM EDT [facility] MCV 85 79 - 98 fL LAB HEMATOLOGY METHOD 05/07/2024 1:19 AM EDT [facility] MCH 29.7 26.0 - 32.0 pg LAB HEMATOLOGY METHOD 05/07/2024 1:19 AM EDT [facility] MCHC 35.0 30.7 - 35.5 g/dL LAB HEMATOLOGY METHOD 05/07/2024 1:19 AM EDT [facility] RDW 15.2(H) 11.5 - 14.5 % LAB HEMATOLOGY METHOD 05/07/2024 1:19 AM EDT [facility] MPV 10.3 8.8 - 12.5 fL LAB HEMATOLOGY METHOD 05/07/2024 1:19 AM EDT [facility] nRBC 0.0 <=0.0 per 100 WBCs LAB HEMATOLOGY METHOD 05/07/2024 1:19 AM EDT [facility] Blood Venous blood specimen / Unknown Venipuncture / Unknown 05/07/2024 12:46 AM EDT 05/07/2024 1:10 AM EDT us Maite Austin MD LAB BLOOD ORDERABLES Final Resu lt [facility] [address] [place] [address] * (ABNORMAL) Blood gas, arterial (05/07/2024 12:45 AM EDT) pH, Arterial 7.32(L) 7.35 - 7.45 LAB HEMATOLOGY METHOD 05/07/2024 1:11 AM EDT [facility] pCO2, Arterial 44 35 - 48 mmHg LAB HEMATOLOGY METHOD 05/07/2024 1:11 AM EDT [facility] pO2, Arterial 333(H) 83 - 108 mmHg LAB HEMATOLOGY METHOD 05/07/2024 1:11 AM EDT [facility] SO2, Measured, Arterial 100(H) 94 - 98 % LAB HEMATOLOGY METHOD 05/07/2024 1:11 AM EDT [facility] Base Excess, Arterial -3.4(L) -2.0 - 3.0 mmol/L LAB HEMATOLOGY METHOD 05/07/2024 1:11 AM EDT [facility] Bicarbonate, Calculated, Arterial 23 22 - 26 mmol/L LAB HEMATOLOGY METHOD 05/07/2024 1:11 AM EDT [facility] Hematocrit, Whole Blood 39.5 34.0 - 45.0 % LAB HEMATOLOGY METHOD 05/07/2024 1:11 AM EDT [facility] Sodium, Whole Blood 148(H) 136 - 145 mmol/L LAB HEMATOLOGY METHOD 05/07/2024 1:11 AM EDT [facility] Potassium, Whole Blood 4.7 3.6 - 4.9 mmol/L LAB HEMATOLOGY METHOD 05/07/2024 1:11 AM EDT [facility] Chloride, Whole Blood 117(H) 97 - 107 mmol/L LAB HEMATOLOGY METHOD 05/07/2024 1:11 AM EDT [facility] Glucose, Whole Blood 138(H) 74 - 99 mg/dL LAB HEMATOLOGY METHOD 05/07/2024 1:11 AM EDT [facility] Ionized Calcium, Whole Blood 4.6 4.6 - 5.1 mg/dL LAB HEMATOLOGY METHOD 05/07/2024 1:11 AM EDT [facility] Lactate, Arterial, Whole Blood 5.2(H) 0.5 - 1.6 mmol/L LAB HEMATOLOGY METHOD 05/07/2024 1:11 AM EDT [facility] Blood Arterial blood specimen / Unknown Arterial Puncture / Unknown 05/07/2024 12:45 AM EDT 05/07/2024 1:10 AM EDT us Maite Austin MD LAB BLOOD ORDERABLES Final Resu lt [facility] [address] [place] [address] * [facility], E/M 30-74 MINUTES (05/06/2024 10:03 [...] Bilateral chest tubes, mediastinal drain, right IJ [place]-Ellis catheter with the tip overlying the main pulmonary artery, median sternotomy wires and mediastinal clips are present. Mild vascular congestion. No pleural effusion or visible pneumothorax. Procedure Note Camila Barth MD - 05/06/2024 CLINICAL INDICATION: Post-Op Cardiac Surgery TECHNIQUE: XR CHEST 1 VIEW COMPARISON: 05/03/2024 FINDINGS: The cardiomediastinal silhouette is prominent. Endotracheal tube tipoverlies mid thoracic trachea. Bilateral chest tubes, mediastinal drain,right IJ [place]-Ellis catheter with the tip overlying the main pulmonaryartery, median sternotomy wires and mediastinal clips are present. Mildvascular congestion. No pleural effusion or visible pneumothorax. IMPRESSION: Lines and catheters as above Mild vascular congestion CRITICAL RESULT: No COMMUNICATION: Per this written report. Drafted by Camila Barth MD on 05/06/2024 9:12 PM Final report signed by Camila Barth MD on 05/06/2024 9:13 PM Result [facility] Maite Austin MD IMG XR PROCEDURES Final [...] platelets (05/06/2024 9:08 PM EDT) Result Anastasiia Khoury MD BLOOD TRANSFUSION ORDERABL ES Final Result * Deena auris Surveillance by PCR (05/06/2024 8:44 PM EDT) Deena auris PCR Result Not Detected Not Detected 05/07/2024 11:20 AM EDT [facility] Swab (Axilla and Groin) Non-blood Collection / Unknown 05/06/2024 8:44 PM EDT 05/06/2024 9:17 PM EDT Narrative [facility] - 05/07/2024 11:20 AM EDT This PCR assay was developed and its performance characteristics determined by [facility] as appropriate for clinical purposes. This assay has not been cleared or approved by the FDA, but is performed in a CLIA regulated laboratory that is qualified to perform high-complexity testing. us Maite Austin MD LAB MICROBIOLOGY - GENERAL ORDE LACHO Final Result [facility] [address] [place] [address] * Multi Drug Resistance Test (05/06/2024 8:44 PM EDT) Pathologist [facility] Culture No growth at day 1 05/07/2024 6:58 PM EDT [facility] Swab (Nares and Jacey Rectal) Non-blood Collection / Unknown 05/06/2024 8:44 PM EDT 05/06/2024 9:17 PM EDT us Maite Austin MD LAB MICROBIOLOGY - GENERAL POLLY MONK Final Result Performing Organization Address [facility]/ZIP Co de Phone Number [facility] [address] [place] [address] * (ABNORMAL) Blood gas, arterial (05/06/2024 8:43 PM EDT) Pathologist [facility] pH, Arterial 7.29(L) 7.35 - 7.45 LAB HEMATOLOGY METHOD 05/06/2024 8:55 PM EDT [facility] pCO2, Arterial 54(H) 35 - 48 mmHg LAB HEMATOLOGY METHOD 05/06/2024 8:55 PM EDT [facility] pO2, Arterial 160(H) 83 - 108 mmHg LAB HEMATOLOGY METHOD 05/06/2024 8:55 PM EDT [facility] SO2, Measured, Arterial 100(H) 94 - 98 % LAB HEMATOLOGY METHOD 05/06/2024 8:55 PM EDT [facility] Base Excess, Arterial -1.7 -2.0 - 3.0 mmol/L LAB HEMATOLOGY METHOD 05/06/2024 8:55 PM EDT [facility] Bicarbonate, Calculated, Arterial 26 22 - 26 mmol/L LAB HEMATOLOGY METHOD 05/06/2024 8:55 PM EDT [facility] Hematocrit, Whole Blood 44.1 34.0 - 45.0 % LAB HEMATOLOGY METHOD 05/06/2024 8:55 PM EDT [facility] Sodium, Whole Blood 150(H) 136 - 145 mmol/L LAB HEMATOLOGY METHOD 05/06/2024 8:55 PM EDT [facility] Potassium, Whole Blood 4.4 3.6 - 4.9 mmol/L LAB HEMATOLOGY METHOD 05/06/2024 8:55 PM EDT [facility] Chloride, Whole Blood 115(H) 97 - 107 mmol/L LAB HEMATOLOGY METHOD 05/06/2024 8:55 PM EDT [facility] Glucose, Whole Blood 111(H) 74 - 99 mg/dL LAB HEMATOLOGY METHOD 05/06/2024 8:55 PM EDT [facility] Ionized Calcium, Whole Blood 4.7 4.6 - 5.1 mg/dL LAB HEMATOLOGY METHOD 05/06/2024 8:55 PM EDT [facility] Lactate, Arterial, Whole Blood 3.7(H) 0.5 - 1.6 mmol/L LAB HEMATOLOGY METHOD 05/06/2024 8:55 PM EDT [facility] Blood Arterial blood specimen / Unknown Arterial Puncture / Unknown 05/06/2024 8:43 PM EDT 05/06/2024 8:53 PM EDT us Maite Austin MD LAB BLOOD ORDERABLES Final Resu lt [facility] [address] [place] [address] * (ABNORMAL) APTT (05/06/2024 8:42 PM EDT) aPTT 54(H) 25 - 35 sec LAB COAGULATION METHOD 05/06/2024 9:34 PM EDT [facility] Blood Venous blood specimen / Unknown Venipuncture / Unknown 05/06/2024 8:42 PM EDT 05/06/2024 8:53 PM EDT us Maite Austin MD LAB BLOOD ORDERABLES Final Resu lt [facility] [address] [place] [address] * (ABNORMAL) Protime-INR (05/06/2024 8:42 PM EDT) Prothrombin Time 18.0(H) 12.0 - 14.3 sec LAB COAGULATION METHOD 05/06/2024 9:34 PM EDT [facility] INR 1.5(H) 0.9 - 1.1 LAB COAGULATION METHOD 05/06/2024 9:34 PM EDT [facility] Blood Venous blood specimen / Unknown Venipuncture / Unknown 05/06/2024 8:42 PM EDT 05/06/2024 8:53 PM EDT Narrative [facility] - 05/06/2024 9:34 PM EDT OPTIMAL INR RANGES FOR PATIENT ON ORAL ANTICOAGULANT THERAPY Prevention of venous thromboembolism INR 2.0 to 3.0 In patients with heart disease: Atrial fibrillation INR 2.0 to 3.0 Valvular heart disease INR 2.0 to 3.0 Tissue heart valves INR 2.0 to 3.0 Mechanical prosthetic valves INR 2.5 to 3.5 Prevention of recurrent AR INR 2.5 to 3.5 us Maite Austin MD LAB BLOOD ORDERABLES Final Resu lt Performing Organization Address City/[facility]/ZIP Co de Phone Number [facility] [address] [place] [address] * Phosphorus (05/06/2024 8:42 PM EDT) Phosphorus, Plasma 2.6 2.5 - 4.5 mg/dL 05/06/2024 9:44 PM EDT [facility] Blood Venous blood specimen / Unknown Venipuncture / Unknown 05/06/2024 8:42 PM EDT 05/06/2024 8:53 PM EDT Maite Austin MD LAB BLOOD ORDERABLES Final Resu lt [facility] [address] [place] [address] * (ABNORMAL) Magnesium (05/06/2024 8:42 PM EDT) Magnesium, Plasma 4.5(H) 1.9 - 2.4 mg/dL 05/06/2024 9:44 PM EDT [facility] Blood Venous blood specimen / Unknown Venipuncture / Unknown 05/06/2024 8:42 PM EDT 05/06/2024 8:53 PM EDT us Maite Austin MD LAB BLOOD ORDERABLES Final Resu lt [facility] [address] [place] [address] * (ABNORMAL) Basic metabolic panel (05/06/2024 8:42 PM EDT) Glucose, Plasma 112(H) 74 - 99 mg/dL 05/06/2024 9:44 PM EDT [facility] BUN, Plasma 12 7 - 21 mg/dL 05/06/2024 9:44 PM EDT [facility] Creatinine, Plasma 1.04 0.60 - 1.10 mg/dL 05/06/2024 9:44 PM EDT [facility] BUN/Creatinine Ratio 12 05/06/2024 9:44 PM EDT [facility] Sodium, Plasma 150(H) 136 - 145 mmol/L 05/06/2024 9:44 PM EDT [facility] Potassium, Plasma 4.8 3.6 - 4.9 mmol/L 05/06/2024 9:44 PM EDT [facility] Comment:Hemolyzed, result ma y be falsely increased. Chloride, Plasma 116(H) 97 - 107 mmol/L 05/06/2024 9:44 PM EDT [facility] CO2, Plasma 23 22 - 29 mmol/L 05/06/2024 9:44 PM EDT [facility] Anion Gap 11 6 - 16 mmol/L 05/06/2024 9:44 PM EDT [facility] Total Calcium, Plasma 8.1(L) 8.9 - 10.2 mg/dL 05/06/2024 9:44 PM EDT [facility] eGFRcr 64.0 mL/min/1.7 3m*2 05/06/2024 9:44 PM EDT [facility] Comment:Reported eGFRcr in m L/min/1.73m2 is based the CKD-EPI 2020 equation that does not use a race coefficient. Blood Venous blood specimen / Unknown Venipuncture / Unknown 05/06/2024 8:42 PM EDT 05/06/2024 8:53 PM EDT us Maite Austin MD LAB BLOOD ORDERABLES Final Resu lt [facility] [address] [place] [address] * (ABNORMAL) CBC (05/06/2024 8:42 PM EDT) WBC Count 23.57(H) 3.70 - 10.30 10*3/uL LAB HEMATOLOGY METHOD 05/06/2024 9:00 PM EDT [facility] RBC Count 4.79 3.90 - 5.20 10*6/uL LAB HEMATOLOGY METHOD 05/06/2024 9:00 PM EDT [facility] HGB 14.3 11.2 - 15.7 g/dL LAB HEMATOLOGY METHOD 05/06/2024 9:00 PM EDT [facility] HCT 40.8 34.0 - 45.0 % LAB HEMATOLOGY METHOD 05/06/2024 9:00 PM EDT [facility] Platelet Count 248 155 - 369 10*3/uL LAB HEMATOLOGY METHOD 05/06/2024 9:00 PM EDT [facility] MCV 85 79 - 98 fL LAB HEMATOLOGY METHOD 05/06/2024 9:00 PM EDT [facility] MCH 29.9 26.0 - 32.0 pg LAB HEMATOLOGY METHOD 05/06/2024 9:00 PM EDT [facility] MCHC 35.0 30.7 - 35.5 g/dL LAB HEMATOLOGY METHOD 05/06/2024 9:00 PM EDT [facility] RDW 14.6(H) 11.5 - 14.5 % LAB HEMATOLOGY METHOD 05/06/2024 9:00 PM EDT [facility] MPV 9.8 8.8 - 12.5 fL LAB HEMATOLOGY METHOD 05/06/2024 9:00 PM EDT [facility] nRBC 0.0 <=0.0 per 100 WBCs LAB HEMATOLOGY METHOD 05/06/2024 9:00 PM EDT [facility] Blood Venous blood specimen / Unknown Venipuncture / Unknown 05/06/2024 8:42 PM EDT 05/06/2024 8:53 PM EDT Maite Austin MD LAB BLOOD ORDERABLES Final Resu lt Performing Organization Address City/[facility]/ZIP Co de Phone Number [facility] [address] [place] [address] * ECG Adult - Upon Admissoin to CVICU (05/06/2024 8:38 PM EDT) EKG DIAGNOSIS CLASS Abnormal MUSE ECG Ventricular Rate 103 BPM MUSE ECG Atrial Rate 103 BPM MUSE ECG LA Interval 158 ms MUSE ECG QRSD Interval 96 ms MUSE ECG QT Interval 424 ms MUSE ECG QTC Interval 555 ms MUSE ECG P [place] 81 degrees MUSE ECG R [place] 71 degrees MUSE ECG T Wave [place] 14 degrees MUSE ECG Diagnosis Sinus tachycardia MUSE ECG Diagnosis Incomplete right bundle branch block MUSE ECG Diagnosis Septal infarct , age undetermined MUSE ECG Diagnosis Prolonged QT MUSE ECG Diagnosis Abnormal ECG MUSE ECG Diagnosis MUSE ECG Diagnosis Confirmed by Pratik Aiken ([id number]) on 05/07/2024 1:32:28 PM MUSE ECG 05/06/2024 8:38 PM EDT 05/07/2024 1:32 PM EDT Maite Austin MD ECG ORDERABLES Final Result Performing Organization Address [facility] de Phone Number MUSE ECG * (ABNORMAL) POCT arterial blood gas gem (05/06/2024 7:39 PM EDT) pH, Arterial 7.30(L) 7.35 - 7.45 05/06/2024 7:40 PM EDT [facility] pCO2, Arterial 48 35 - 48 mm Hg 05/06/2024 7:40 PM EDT [facility] pO2, Arterial 72(L) 83 - 108 mm Hg 05/06/2024 7:40 PM EDT [facility] SO2, Arterial 97 94 - 98 % 05/06/2024 7:40 PM EDT [facility] Base Excess, Arterial -3.0(L) -2 - 3 mmol/L 05/06/2024 7:40 PM EDT [facility] HCO3, Arterial 23.6 22 - 26 mmol/L 05/06/2024 7:40 PM EDT [facility] Total Hemoglobin, Arterial, Whole Blood 11.7 11.2 - 15.7 g/dL 05/06/2024 7:40 PM EDT [facility] Hematocrit, Arterial 35.0 34.0 - 45.0 % 05/06/2024 7:40 PM EDT [facility] Sodium, Arterial 147(H) 136 - 145 mmol/L 05/06/2024 7:40 PM EDT [facility] Potassium, Arterial 4.7 3.6 - 4.9 mmol/L 05/06/2024 7:40 PM EDT [facility] Chloride, Whole Blood 115(H) 97 - 107 mmol/L 05/06/2024 7:40 PM EDT [facility] Glucose, Arterial 105(H) 74 - 99 mg/dL 05/06/2024 7:40 PM EDT [facility] Ionized Calcium, Arterial 4.8 4.6 - 5.1 mg/dL 05/06/2024 7:40 PM EDT [facility] Lactate, Arterial 3.7(H) 0.5 - 1.6 mmol/L 05/06/2024 7:40 PM EDT [facility] Body Temperature 37.0 Celsius 05/06/2024 7:40 PM EDT [facility] pH, Temp Corrected, Arterial 7.30(L) 7.35 - 7.45 05/06/2024 7:40 PM EDT [facility] pCO2, Temp Corrected, Arterial 48 35 - 48 mm Hg 05/06/2024 7:40 PM EDT [facility] pO2, Temp Corrected, Arterial 72(L) 83 - 108 mm Hg 05/06/2024 7:40 PM EDT [facility] 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 Jake Angeles 05/06/2024 7:40 PM EDT [facility] Blood, Arterial Whole blood specimen / Unknown 05/06/2024 7:39 PM EDT 05/06/2024 7:40 PM EDT us Maite Austin MD LAB POINT OF CARE TE ST DOCKED DEVICE UNSOLICITED RESULTS Final Result [facility] [address] [place] [address] * (ABNORMAL) POCT arterial blood gas gem (05/06/2024 7:09 PM EDT) pH, Arterial 7.28(L) 7.35 - 7.45 05/06/2024 7:11 PM EDT [facility] pCO2, Arterial 48 35 - 48 mm Hg 05/06/2024 7:11 PM EDT [facility] pO2, Arterial 304(H) 83 - 108 mm Hg 05/06/2024 7:11 PM EDT [facility] SO2, Arterial 100(H) 94 - 98 % 05/06/2024 7:11 PM EDT [facility] Base Excess, Arterial -4.1(L) -2 - 3 mmol/L 05/06/2024 7:11 PM EDT [facility] HCO3, Arterial 22.6 22 - 26 mmol/L 05/06/2024 7:11 PM EDT [facility] Total Hemoglobin, Arterial, Whole Blood 9.4(L) 11.2 - 15.7 g/dL 05/06/2024 7:11 PM EDT [facility] Hematocrit, Arterial 28.0(L) 34.0 - 45.0 % 05/06/2024 7:11 PM EDT [facility] Sodium, Arterial 149(H) 136 - 145 mmol/L 05/06/2024 7:11 PM EDT [facility] Potassium, Arterial 5.0(H) 3.6 - 4.9 mmol/L 05/06/2024 7:11 PM EDT [facility] Chloride, Whole Blood 116(H) 97 - 107 mmol/L 05/06/2024 7:11 PM EDT [facility] Glucose, Arterial 134(H) 74 - 99 mg/dL 05/06/2024 7:11 PM EDT [facility] Ionized Calcium, Arterial 4.6 4.6 - 5.1 mg/dL 05/06/2024 7:11 PM EDT [facility] Lactate, Arterial 5.1(H) 0.5 - 1.6 mmol/L 05/06/2024 7:11 PM EDT [facility] Body Temperature 37.0 Celsius 05/06/2024 7:11 PM EDT [facility] pH, Temp Corrected, Arterial 7.28(L) 7.35 - 7.45 05/06/2024 7:11 PM EDT [facility] pCO2, Temp Corrected, Arterial 48 35 - 48 mm Hg 05/06/2024 7:11 PM EDT [facility] pO2, Temp Corrected, Arterial 304(H) 83 - 108 mm Hg 05/06/2024 7:11 PM EDT [facility] 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 Jake Angeles 05/06/2024 7:11 PM EDT [facility] Blood, Arterial Whole blood specimen / Unknown 05/06/2024 7:09 PM EDT 05/06/2024 7:11 PM EDT us Maite Austin MD LAB POINT OF CARE TE ST DOCKED DEVICE UNSOLICITED RESULTS Final Result Performing Organization Address City/[facility]/ZIP Co de Phone Number [facility] [address] [place] [address] * Prepare Leukocyte Reduced Platelets: 1 Units (05/06/2024 6:40 PM EDT) Product Code [id number] CH BLOO D BANK Dispense Status Transfused BLOOD BANK Blood Expiration Date [id number] BLOOD BANK Unit Number [id number] CH B LOOD BANK Product Blood Type 6200 BLOOD BANK Blood Type A+ BLOOD BANK Blood Venous blood specimen / Unknown Alfie Khoury MD BLOOD BANK PRODUCT ORDERAB LES Final Result Performing Organization Address [facility] Co de Phone Number BLOOD BANK [address] * (ABNORMAL) POCT arterial blood gas gem (05/06/2024 6:38 PM EDT) pH, Arterial 7.29(L) 7.35 - 7.45 05/06/2024 6:40 PM [facility] pCO2, Arterial 47 35 - 48 mm Hg 05/06/2024 6:40 PM [facility] pO2, Arterial 425(H) 83 - 108 mm Hg 05/06/2024 6:40 PM EDT [facility] SO2, Arterial 100(H) 94 - 98 % 05/06/2024 6:40 PM EDT [facility] Base Excess, Arterial -3.8(L) -2 - 3 mmol/L 05/06/2024 6:40 PM [facility] HCO3, Arterial 22.6 22 - 26 mmol/L 05/06/2024 6:40 PM EDT [facility] Total Hemoglobin, Arterial, Whole Blood 7.2(L) 11.2 - 15.7 g/dL 05/06/2024 6:40 PM [facility] Hematocrit, Arterial 22.0(L) 34.0 - 45.0 % 05/06/2024 6:40 PM T [facility] Sodium, Arterial 148(H) 136 - 145 mmol/L 05/06/2024 6:40 PM [facility] Potassium, Arterial 4.9 3.6 - 4.9 mmol/L 05/06/2024 6:40 PM T [facility] Chloride, Whole Blood 116(H) 97 - 107 mmol/L 05/06/2024 6:40 PM [facility] Glucose, Arterial 141(H) 74 - 99 mg/dL 05/06/2024 6:40 PM [facility] Ionized Calcium, Arterial 4.8 4.6 - 5.1 mg/dL 05/06/2024 6:40 PM [facility] Lactate, Arterial 5.4(H) 0.5 - 1.6 mmol/L 05/06/2024 6:40 PM [facility] Body Temperature 37.0 Celsius 05/06/2024 6:40 PM [facility] pH, Temp Corrected, Arterial 7.29(L) 7.35 - 7.45 05/06/2024 6:40 PM [facility] pCO2, Temp Corrected, Arterial 47 35 - 48 mm Hg 05/06/2024 6:40 PM [facility] pO2, Temp Corrected, Arterial 425(H) 83 - 108 mm Hg 05/06/2024 6:40 PM [facility] 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 Jake Angeles 05/06/2024 6:40 PM [facility] Blood, Arterial Whole blood specimen / Unknown 05/06/2024 6:38 PM EDT 05/06/2024 6:40 PM EDT us Maite Austin MD LAB POINT OF CARE TE ST DOCKED DEVICE UNSOLICITED RESULTS Final Result [facility] [address] [place] [address] * (ABNORMAL) POCT arterial blood gas gem (05/06/2024 6:12 PM EDT) pH, Arterial 7.45 7.35 - 7.45 05/06/2024 6:13 PM EDT [facility] pCO2, Arterial 30(L) 35 - 48 mm Hg 05/06/2024 6:13 PM EDT [facility] pO2, Arterial 389(H) 83 - 108 mm Hg 05/06/2024 6:13 PM EDT [facility] SO2, Arterial 100(H) 94 - 98 % 05/06/2024 6:13 PM EDT [facility] Base Excess, Arterial -2.7(L) -2 - 3 mmol/L 05/06/2024 6:13 PM EDT [facility] HCO3, Arterial 20.9(L) 22 - 26 mmol/L 05/06/2024 6:13 PM EDT [facility] Total Hemoglobin, Arterial, Whole Blood 7.6(L) 11.2 - 15.7 g/dL 05/06/2024 6:13 PM EDT [facility] Hematocrit, Arterial 23.0(L) 34.0 - 45.0 % 05/06/2024 6:13 PM EDT [facility] Sodium, Arterial 149(H) 136 - 145 mmol/L 05/06/2024 6:13 PM EDT [facility] Potassium, Arterial 5.0(H) 3.6 - 4.9 mmol/L 05/06/2024 6:13 PM EDT [facility] Chloride, Whole Blood 118(H) 97 - 107 mmol/L 05/06/2024 6:13 PM EDT [facility] Glucose, Arterial 209(H) 74 - 99 mg/dL 05/06/2024 6:13 PM EDT [facility] Ionized Calcium, Arterial 4.4(L) 4.6 - 5.1 mg/dL 05/06/2024 6:13 PM EDT [facility] Lactate, Arterial 5.2(H) 0.5 - 1.6 mmol/L 05/06/2024 6:13 PM EDT [facility] Body Temperature 37.0 Celsius 05/06/2024 6:13 PM EDT [facility] pH, Temp Corrected, Arterial 7.45 7.35 - 7.45 05/06/2024 6:13 PM EDT [facility] pCO2, Temp Corrected, Arterial 30(L) 35 - 48 mm Hg 05/06/2024 6:13 PM EDT [facility] pO2, Temp Corrected, Arterial 389(H) 83 - 108 mm Hg 05/06/2024 6:13 PM EDT [facility] 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 Jake Angeles 05/06/2024 6:13 PM EDT [facility] Blood, Arterial Whole blood specimen / Unknown 05/06/2024 6:12 PM EDT 05/06/2024 6:13 PM EDT us Maite Austin MD LAB POINT OF CARE TE ST DOCKED DEVICE UNSOLICITED RESULTS Final Result Performing Organization Address City/State/[facility] Co de Phone Number [facility] [address] [place] [address] * (ABNORMAL) POCT arterial blood gas gem (05/06/2024 5:57 PM EDT) pH, Arterial 7.44 7.35 - 7.45 05/06/2024 5:58 PM EDT [facility] pCO2, Arterial 28(L) 35 - 48 mm Hg 05/06/2024 5:58 PM EDT [facility] pO2, Arterial 335(H) 83 - 108 mm Hg 05/06/2024 5:58 PM EDT [facility] SO2, Arterial 100(H) 94 - 98 % 05/06/2024 5:58 PM EDT [facility] Base Excess, Arterial -4.6(L) -2 - 3 mmol/L 05/06/2024 5:58 PM EDT [facility] HCO3, Arterial 19.0(L) 22 - 26 mmol/L 05/06/2024 5:58 PM EDT [facility] Total Hemoglobin, Arterial, Whole Blood 6.9(L) 11.2 - 15.7 g/dL 05/06/2024 5:58 PM EDT [facility] Hematocrit, Arterial 21.0(L) 34.0 - 45.0 % 05/06/2024 5:58 PM EDT [facility] Sodium, Arterial 144 136 - 145 mmol/L 05/06/2024 5:58 PM EDT [facility] Potassium, Arterial 5.7(H) 3.6 - 4.9 mmol/L 05/06/2024 5:58 PM EDT [facility] Chloride, Whole Blood 116(H) 97 - 107 mmol/L 05/06/2024 5:58 PM EDT [facility] Glucose, Arterial 177(H) 74 - 99 mg/dL 05/06/2024 5:58 PM EDT [facility] Ionized Calcium, Arterial 4.8 4.6 - 5.1 mg/dL 05/06/2024 5:58 PM EDT [facility] Lactate, Arterial 4.7(H) 0.5 - 1.6 mmol/L 05/06/2024 5:58 PM EDT [facility] Body Temperature 37.0 Celsius 05/06/2024 5:58 PM EDT [facility] pH, Temp Corrected, Arterial 7.44 7.35 - 7.45 05/06/2024 5:58 PM EDT [facility] pCO2, Temp Corrected, Arterial 28(L) 35 - 48 mm Hg 05/06/2024 5:58 PM EDT [facility] pO2, Temp Corrected, Arterial 335(H) 83 - 108 mm Hg 05/06/2024 5:58 PM EDT [facility] 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 Jake Angeles 05/06/2024 5:58 PM EDT [facility] Blood, Arterial Whole blood specimen / Unknown 05/06/2024 5:57 PM EDT 05/06/2024 5:58 PM EDT us Maite Austin MD LAB POINT OF CARE TE ST DOCKED DEVICE UNSOLICITED RESULTS Final Result [facility] [address] [place] [id number] * (ABNORMAL) POCT arterial blood gas gem (05/06/2024 5:42 PM EDT) pH, Arterial 7.48(H) 7.35 - 7.45 05/06/2024 5:43 PM EDT [facility] pCO2, Arterial 37 35 - 48 mm Hg 05/06/2024 5:43 PM EDT [facility] pO2, Arterial 337(H) 83 - 108 mm Hg 05/06/2024 5:43 PM EDT [facility] SO2, Arterial 99(H) 94 - 98 % 05/06/2024 5:43 PM EDT [facility] Base Excess, Arterial 3.8(H) -2 - 3 mmol/L 05/06/2024 5:43 PM EDT [facility] HCO3, Arterial 27.6(H) 22 - 26 mmol/L 05/06/2024 5:43 PM EDT [facility] Total Hemoglobin, Arterial, Whole Blood 7.5(L) 11.2 - 15.7 g/dL 05/06/2024 5:43 PM EDT [facility] Hematocrit, Arterial 23.0(L) 34.0 - 45.0 % 05/06/2024 5:43 PM EDT [facility] Sodium, Arterial 144 136 - 145 mmol/L 05/06/2024 5:43 PM EDT [facility] Potassium, Arterial 6.8(HH) 3.6 - 4.9 mmol/L 05/06/2024 5:43 PM EDT [facility] Chloride, Whole Blood 113(H) 97 - 107 mmol/L 05/06/2024 5:43 PM EDT [facility] Glucose, Arterial 224(H) 74 - 99 mg/dL 05/06/2024 5:43 PM EDT [facility] Ionized Calcium, Arterial 4.9 4.6 - 5.1 mg/dL 05/06/2024 5:43 PM EDT [facility] Lactate, Arterial 5.3(H) 0.5 - 1.6 mmol/L 05/06/2024 5:43 PM EDT [facility] Body Temperature 37.0 Celsius 05/06/2024 5:43 PM EDT [facility] pH, Temp Corrected, Arterial 7.48(H) 7.35 - 7.45 05/06/2024 5:43 PM EDT [facility] pCO2, Temp Corrected, Arterial 37 35 - 48 mm Hg 05/06/2024 5:43 PM EDT [facility] pO2, Temp Corrected, Arterial 337(H) 83 - 108 mm Hg 05/06/2024 5:43 PM EDT [facility] 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 Yuri Hood 05/06/2024 5:43 PM EDT [facility] Blood, Arterial Whole blood specimen / Unknown 05/06/2024 5:42 PM EDT 05/06/2024 5:43 PM EDT us Maite Austin MD LAB POINT OF CARE TE ST DOCKED DEVICE UNSOLICITED RESULTS Final Result [facility] [address] [place] [address] * (ABNORMAL) POCT arterial blood gas gem (05/06/2024 5:08 PM EDT) pH, Arterial 7.38 7.35 - 7.45 05/06/2024 5:10 PM EDT [facility] pCO2, Arterial 37 35 - 48 mm Hg 05/06/2024 5:10 PM EDT [facility] pO2, Arterial 343(H) 83 - 108 mm Hg 05/06/2024 5:10 PM EDT [facility] SO2, Arterial 99(H) 94 - 98 % 05/06/2024 5:10 PM EDT [facility] Base Excess, Arterial -2.9(L) -2 - 3 mmol/L 05/06/2024 5:10 PM EDT [facility] HCO3, Arterial 21.9(L) 22 - 26 mmol/L 05/06/2024 5:10 PM EDT [facility] Total Hemoglobin, Arterial, Whole Blood 8.2(L) 11.2 - 15.7 g/dL 05/06/2024 5:10 PM EDT [facility] Hematocrit, Arterial 25.0(L) 34.0 - 45.0 % 05/06/2024 5:10 PM EDT [facility] Sodium, Arterial 144 136 - 145 mmol/L 05/06/2024 5:10 PM EDT [facility] Potassium, Arterial 6.9(HH) 3.6 - 4.9 mmol/L 05/06/2024 5:10 PM EDT [facility] Chloride, Whole Blood 112(H) 97 - 107 mmol/L 05/06/2024 5:10 PM EDT [facility] Glucose, Arterial 177(H) 74 - 99 mg/dL 05/06/2024 5:10 PM EDT [facility] Ionized Calcium, Arterial 4.0(L) 4.6 - 5.1 mg/dL 05/06/2024 5:10 PM EDT [facility] Lactate, Arterial 4.7(H) 0.5 - 1.6 mmol/L 05/06/2024 5:10 PM EDT [facility] Body Temperature 37.0 Celsius 05/06/2024 5:10 PM EDT [facility] pH, Temp Corrected, Arterial 7.38 7.35 - 7.45 05/06/2024 5:10 PM EDT [facility] pCO2, Temp Corrected, Arterial 37 35 - 48 mm Hg 05/06/2024 5:10 PM EDT [facility] pO2, Temp Corrected, Arterial 343(H) 83 - 108 mm Hg 05/06/2024 5:10 PM EDT [facility] 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 Yuri Hood 05/06/2024 5:10 PM EDT [facility] Blood, Arterial Whole blood specimen / Unknown 05/06/2024 5:08 PM EDT 05/06/2024 5:10 PM EDT Maite Austin MD LAB POINT OF CARE TE ST DOCKED DEVICE UNSOLICITED RESULTS Final Result [facility] [address] [place] [id number] * (ABNORMAL) POCT arterial blood gas gem (05/06/2024 4:43 PM EDT) pH, Arterial 7.36 7.35 - 7.45 05/06/2024 4:44 PM EDT [facility] pCO2, Arterial 39 35 - 48 mm Hg 05/06/2024 4:44 PM EDT [facility] pO2, Arterial 348(H) 83 - 108 mm Hg 05/06/2024 4:44 PM EDT [facility] SO2, Arterial 100(H) 94 - 98 % 05/06/2024 4:44 PM EDT [facility] Base Excess, Arterial -3.2(L) -2 - 3 mmol/L 05/06/2024 4:44 PM T [facility] HCO3, Arterial 22.0 22 - 26 mmol/L 05/06/2024 4:44 PM T [facility] Total Hemoglobin, Arterial, Whole Blood 6.9(L) 11.2 - 15.7 g/dL 05/06/2024 4:44 PM T [facility] Hematocrit, Arterial 21.0(L) 34.0 - 45.0 % 05/06/2024 4:44 PM T [facility] Sodium, Arterial 141 136 - 145 mmol/L 05/06/2024 4:44 PM [facility] Potassium, Arterial 7.3(HH) 3.6 - 4.9 mmol/L 05/06/2024 4:44 PM T [facility] Chloride, Whole Blood 112(H) 97 - 107 mmol/L 05/06/2024 4:44 PM [facility] Glucose, Arterial 156(H) 74 - 99 mg/dL 05/06/2024 4:44 PM [facility] Ionized Calcium, Arterial 4.4(L) 4.6 - 5.1 mg/dL 05/06/2024 4:44 PM [facility] Lactate, Arterial 4.0(H) 0.5 - 1.6 mmol/L 05/06/2024 4:44 PM T [facility] Body Temperature 37.0 Celsius 05/06/2024 4:44 PM [facility] pH, Temp Corrected, Arterial 7.36 7.35 - 7.45 05/06/2024 4:44 PM [facility] pCO2, Temp Corrected, Arterial 39 35 - 48 mm Hg 05/06/2024 4:44 PM [facility] pO2, Temp Corrected, Arterial 348(H) 83 - 108 mm Hg 05/06/2024 4:44 PM [facility] 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 Yuri Hood 05/06/2024 4:44 PM [facility] Blood, Arterial Whole blood specimen / Unknown 05/06/2024 4:43 PM EDT 05/06/2024 4:44 PM EDT us Maite Austin MD LAB POINT OF CARE TE ST DOCKED DEVICE UNSOLICITED RESULTS Final Result [facility] [address] [place] [address] * (ABNORMAL) POCT arterial blood gas gem (05/06/2024 4:10 PM EDT) pH, Arterial 7.38 7.35 - 7.45 05/06/2024 4:12 PM EDT [facility] pCO2, Arterial 41 35 - 48 mm Hg 05/06/2024 4:12 PM EDT [facility] pO2, Arterial 276(H) 83 - 108 mm Hg 05/06/2024 4:12 PM EDT [facility] SO2, Arterial 99(H) 94 - 98 % 05/06/2024 4:12 PM EDT [facility] Base Excess, Arterial -0.8 -2 - 3 mmol/L 05/06/2024 4:12 PM EDT [facility] HCO3, Arterial 24.3 22 - 26 mmol/L 05/06/2024 4:12 PM EDT [facility] Total Hemoglobin, Arterial, Whole Blood 7.8(L) 11.2 - 15.7 g/dL 05/06/2024 4:12 PM EDT [facility] Hematocrit, Arterial 23.0(L) 34.0 - 45.0 % 05/06/2024 4:12 PM EDT [facility] Sodium, Arterial 143 136 - 145 mmol/L 05/06/2024 4:12 PM EDT [facility] Potassium, Arterial 6.3(H) 3.6 - 4.9 mmol/L 05/06/2024 4:12 PM EDT [facility] Chloride, Whole Blood 112(H) 97 - 107 mmol/L 05/06/2024 4:12 PM EDT [facility] Glucose, Arterial 134(H) 74 - 99 mg/dL 05/06/2024 4:12 PM EDT [facility] Ionized Calcium, Arterial 4.9 4.6 - 5.1 mg/dL 05/06/2024 4:12 PM EDT [facility] Lactate, Arterial 3.3(H) 0.5 - 1.6 mmol/L 05/06/2024 4:12 PM EDT [facility] Body Temperature 37.0 Celsius 05/06/2024 4:12 PM EDT [facility] pH, Temp Corrected, Arterial 7.38 7.35 - 7.45 05/06/2024 4:12 PM EDT [facility] pCO2, Temp Corrected, Arterial 41 35 - 48 mm Hg 05/06/2024 4:12 PM EDT [facility] pO2, Temp Corrected, Arterial 276(H) 83 - 108 mm Hg 05/06/2024 4:12 PM EDT [facility] 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 Yuri Hood 05/06/2024 4:12 PM EDT [facility] Blood, Arterial Whole blood specimen / Unknown 05/06/2024 4:10 PM EDT 05/06/2024 4:12 PM EDT us Maite Austin MD LAB POINT OF CARE TE ST DOCKED DEVICE UNSOLICITED RESULTS Final Result [facility] [address] [place] [address] * (ABNORMAL) POCT arterial blood gas gem (05/06/2024 3:45 PM EDT) pH, Arterial 7.37 7.35 - 7.45 05/06/2024 3:46 PM EDT [facility] pCO2, Arterial 38 35 - 48 mm Hg 05/06/2024 3:46 PM EDT [facility] pO2, Arterial 277(H) 83 - 108 mm Hg 05/06/2024 3:46 PM EDT [facility] SO2, Arterial 99(H) 94 - 98 % 05/06/2024 3:46 PM EDT [facility] Base Excess, Arterial -3.0(L) -2 - 3 mmol/L 05/06/2024 3:46 PM EDT [facility] HCO3, Arterial 22.0 22 - 26 mmol/L 05/06/2024 3:46 PM EDT [facility] Total Hemoglobin, Arterial, Whole Blood 7.3(L) 11.2 - 15.7 g/dL 05/06/2024 3:46 PM EDT [facility] Hematocrit, Arterial 22.0(L) 34.0 - 45.0 % 05/06/2024 3:46 PM EDT [facility] Sodium, Arterial 138 136 - 145 mmol/L 05/06/2024 3:46 PM EDT [facility] Potassium, Arterial 6.9(HH) 3.6 - 4.9 mmol/L 05/06/2024 3:46 PM EDT [facility] Chloride, Whole Blood 112(H) 97 - 107 mmol/L 05/06/2024 3:46 PM EDT [facility] Glucose, Arterial 129(H) 74 - 99 mg/dL 05/06/2024 3:46 PM EDT [facility] Ionized Calcium, Arterial 5.2(H) 4.6 - 5.1 mg/dL 05/06/2024 3:46 PM EDT [facility] Lactate, Arterial 3.2(H) 0.5 - 1.6 mmol/L 05/06/2024 3:46 PM EDT [facility] Body Temperature 37.0 Celsius 05/06/2024 3:46 PM EDT [facility] pH, Temp Corrected, Arterial 7.37 7.35 - 7.45 05/06/2024 3:46 PM EDT [facility] pCO2, Temp Corrected, Arterial 38 35 - 48 mm Hg 05/06/2024 3:46 PM EDT [facility] pO2, Temp Corrected, Arterial 277(H) 83 - 108 mm Hg 05/06/2024 3:46 PM EDT [facility] 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 Yuri Hood 05/06/2024 3:46 PM EDT [facility] Blood, Arterial Whole blood specimen / Unknown 05/06/2024 3:45 PM EDT 05/06/2024 3:46 PM EDT us Maite Austin MD LAB POINT OF CARE TE ST DOCKED DEVICE UNSOLICITED RESULTS Final Result [facility] [address] [place] [address] * Prepare Leukocyte Reduced Platelets: 1 Units (05/06/2024 3:04 PM EDT) Product Code [id number] BLOO D BANK Dispense Status Transfused BLOOD BANK Blood Expiration Date [id number] BLOOD BANK Unit Number [id number] B LOOD BANK Product Blood Type 5100 BLOOD BANK Blood Type O+ BLOOD BANK Blood Venous blood specimen / Unknown Alfie Khoury MD BLOOD BANK PRODUCT ORDERAB LES Final Result [facility] [address] [place] [address], * (ABNORMAL) POCT arterial blood gas gem (05/06/2024 2:59 PM EDT) pH, Arterial 7.29(L) 7.35 - 7.45 05/06/2024 3:00 PM EDT [facility] pCO2, Arterial 42 35 - 48 mm Hg 05/06/2024 3:00 PM EDT [facility] pO2, Arterial 282(H) 83 - 108 mm Hg 05/06/2024 3:00 PM EDT [facility] SO2, Arterial 99(H) 94 - 98 % 05/06/2024 3:00 PM EDT [facility] Base Excess, Arterial -5.9(L) -2 - 3 mmol/L 05/06/2024 3:00 PM EDT [facility] HCO3, Arterial 20.2(L) 22 - 26 mmol/L 05/06/2024 3:00 PM EDT [facility] Total Hemoglobin, Arterial, Whole Blood 7.9(L) 11.2 - 15.7 g/dL 05/06/2024 3:00 PM EDT [facility] Hematocrit, Arterial 24.0(L) 34.0 - 45.0 % 05/06/2024 3:00 PM EDT [facility] Sodium, Arterial 141 136 - 145 mmol/L 05/06/2024 3:00 PM EDT [facility] Potassium, Arterial 6.5(HH) 3.6 - 4.9 mmol/L 05/06/2024 3:00 PM EDT [facility] Chloride, Whole Blood 113(H) 97 - 107 mmol/L 05/06/2024 3:00 PM EDT [facility] Glucose, Arterial 133(H) 74 - 99 mg/dL 05/06/2024 3:00 PM EDT [facility] Ionized Calcium, Arterial 2.9(LL) 4.6 - 5.1 mg/dL 05/06/2024 3:00 PM EDT [facility] Lactate, Arterial 2.0(H) 0.5 - 1.6 mmol/L 05/06/2024 3:00 PM EDT [facility] Body Temperature 37.0 Celsius 05/06/2024 3:00 PM EDT [facility] pH, Temp Corrected, Arterial 7.29(L) 7.35 - 7.45 05/06/2024 3:00 PM EDT [facility] pCO2, Temp Corrected, Arterial 42 35 - 48 mm Hg 05/06/2024 3:00 PM EDT [facility] pO2, Temp Corrected, Arterial 282(H) 83 - 108 mm Hg 05/06/2024 3:00 PM EDT [facility] 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 Yuri Hood 05/06/2024 3:00 PM EDT [facility] Blood, Arterial Whole blood specimen / Unknown 05/06/2024 2:59 PM EDT 05/06/2024 3:00 PM EDT us Maite Austin MD LAB POINT OF CARE TE ST DOCKED DEVICE UNSOLICITED RESULTS Final Result Performing Organization Address City/State/[facility] Co de Phone Number [facility] [address] [place] [phone] * (ABNORMAL) POCT arterial blood gas gem (05/06/2024 2:37 PM EDT) pH, Arterial 7.32(L) 7.35 - 7.45 05/06/2024 2:38 PM EDT [facility] pCO2, Arterial 41 35 - 48 mm Hg 05/06/2024 2:38 PM EDT [facility] pO2, Arterial 201(H) 83 - 108 mm Hg 05/06/2024 2:38 PM EDT [facility] SO2, Arterial 99(H) 94 - 98 % 05/06/2024 2:38 PM EDT [facility] Base Excess, Arterial -4.7(L) -2 - 3 mmol/L 05/06/2024 2:38 PM EDT [facility] HCO3, Arterial 21.1(L) 22 - 26 mmol/L 05/06/2024 2:38 PM EDT [facility] Total Hemoglobin, Arterial, Whole Blood 9.2(L) 11.2 - 15.7 g/dL 05/06/2024 2:38 PM EDT [facility] Hematocrit, Arterial 28.0(L) 34.0 - 45.0 % 05/06/2024 2:38 PM EDT [facility] Sodium, Arterial 134(L) 136 - 145 mmol/L 05/06/2024 2:38 PM EDT [facility] Potassium, Arterial 7.8(HH) 3.6 - 4.9 mmol/L 05/06/2024 2:38 PM EDT [facility] Chloride, Whole Blood 106 97 - 107 mmol/L 05/06/2024 2:38 PM T [facility] Glucose, Arterial 159(H) 74 - 99 mg/dL 05/06/2024 2:38 PM T [facility] Ionized Calcium, Arterial 3.3(L) 4.6 - 5.1 mg/dL 05/06/2024 2:38 PM T [facility] Lactate, Arterial 2.2(H) 0.5 - 1.6 mmol/L 05/06/2024 2:38 PM EDT [facility] Body Temperature 37.0 Celsius 05/06/2024 2:38 PM T [facility] pH, Temp Corrected, Arterial 7.32(L) 7.35 - 7.45 05/06/2024 2:38 PM EDT [facility] pCO2, Temp Corrected, Arterial 41 35 - 48 mm Hg 05/06/2024 2:38 PM T [facility] pO2, Temp Corrected, Arterial 201(H) 83 - 108 mm Hg 05/06/2024 2:38 PM T [facility] [employer] Yuri Lunsford 05/06/2024 2:38 PM T [facility] Blood, Arterial Whole blood specimen / Unknown 05/06/2024 2:37 PM EDT 05/06/2024 2:38 PM EDT us Maite Austin MD LAB POINT OF CARE TE ST DOCKED DEVICE UNSOLICITED RESULTS Final Result [facility] [address] [place] [address] * (ABNORMAL) POCT arterial blood gas gem (05/06/2024 2:11 PM EDT) pH, Arterial 7.34(L) 7.35 - 7.45 05/06/2024 2:12 PM EDT [facility] pCO2, Arterial 42 35 - 48 mm Hg 05/06/2024 2:12 PM EDT [facility] pO2, Arterial 272(H) 83 - 108 mm Hg 05/06/2024 2:12 PM EDT [facility] SO2, Arterial 100(H) 94 - 98 % 05/06/2024 2:12 PM EDT [facility] Base Excess, Arterial -2.9(L) -2 - 3 mmol/L 05/06/2024 2:12 PM EDT [facility] HCO3, Arterial 22.7 22 - 26 mmol/L 05/06/2024 2:12 PM EDT [facility] Total Hemoglobin, Arterial, Whole Blood 8.8(L) 11.2 - 15.7 g/dL 05/06/2024 2:12 PM EDT [facility] Hematocrit, Arterial 26.0(L) 34.0 - 45.0 % 05/06/2024 2:12 PM EDT [facility] Sodium, Arterial 131(L) 136 - 145 mmol/L 05/06/2024 2:12 PM EDT [facility] Potassium, Arterial 7.9(HH) 3.6 - 4.9 mmol/L 05/06/2024 2:12 PM EDT [facility] Chloride, Whole Blood 104 97 - 107 mmol/L 05/06/2024 2:12 PM EDT [facility] Glucose, Arterial 165(H) 74 - 99 mg/dL 05/06/2024 2:12 PM EDT [facility] Ionized Calcium, Arterial 3.4(L) 4.6 - 5.1 mg/dL 05/06/2024 2:12 PM EDT [facility] Lactate, Arterial 2.3(H) 0.5 - 1.6 mmol/L 05/06/2024 2:12 PM EDT [facility] Body Temperature 37.0 Celsius 05/06/2024 2:12 PM EDT [facility] pH, Temp Corrected, Arterial 7.34(L) 7.35 - 7.45 05/06/2024 2:12 PM EDT [facility] pCO2, Temp Corrected, Arterial 42 35 - 48 mm Hg 05/06/2024 2:12 PM EDT [facility] pO2, Temp Corrected, Arterial 272(H) 83 - 108 mm Hg 05/06/2024 2:12 PM EDT [facility] 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 Yuri Hood 05/06/2024 2:12 PM EDT [facility] Blood, Arterial Whole blood specimen / Unknown 05/06/2024 2:11 PM EDT 05/06/2024 2:12 PM EDT us Maite Austin MD LAB POINT OF CARE TE ST DOCKED DEVICE UNSOLICITED RESULTS Final Result [facility] [address] [place] [address] * (ABNORMAL) POCT arterial blood gas gem (05/06/2024 1:33 PM EDT) pH, Arterial 7.31(L) 7.35 - 7.45 05/06/2024 1:34 PM EDT [facility] pCO2, Arterial 46 35 - 48 mm Hg 05/06/2024 1:34 PM EDT [facility] pO2, Arterial 332(H) 83 - 108 mm Hg 05/06/2024 1:34 PM EDT [facility] SO2, Arterial 100(H) 94 - 98 % 05/06/2024 1:34 PM EDT [facility] Base Excess, Arterial -2.9(L) -2 - 3 mmol/L 05/06/2024 1:34 PM EDT [facility] HCO3, Arterial 23.2 22 - 26 mmol/L 05/06/2024 1:34 PM EDT [facility] Total Hemoglobin, Arterial, Whole Blood 6.8(L) 11.2 - 15.7 g/dL 05/06/2024 1:34 PM EDT [facility] Hematocrit, Arterial 20.0(L) 34.0 - 45.0 % 05/06/2024 1:34 PM EDT [facility] Sodium, Arterial 133(L) 136 - 145 mmol/L 05/06/2024 1:34 PM EDT [facility] Potassium, Arterial 6.8(HH) 3.6 - 4.9 mmol/L 05/06/2024 1:34 PM EDT [facility] Chloride, Whole Blood 104 97 - 107 mmol/L 05/06/2024 1:34 PM EDT [facility] Glucose, Arterial 129(H) 74 - 99 mg/dL 05/06/2024 1:34 PM EDT [facility] Ionized Calcium, Arterial 3.5(L) 4.6 - 5.1 mg/dL 05/06/2024 1:34 PM EDT [facility] Lactate, Arterial 2.1(H) 0.5 - 1.6 mmol/L 05/06/2024 1:34 PM EDT [facility] Body Temperature 37.0 Celsius 05/06/2024 1:34 PM EDT [facility] pH, Temp Corrected, Arterial 7.31(L) 7.35 - 7.45 05/06/2024 1:34 PM EDT [facility] pCO2, Temp Corrected, Arterial 46 35 - 48 mm Hg 05/06/2024 1:34 PM EDT [facility] pO2, Temp Corrected, Arterial 332(H) 83 - 108 mm Hg 05/06/2024 1:34 PM EDT [facility] [employer] 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 Yuri Hood 05/06/2024 1:34 PM EDT [facility] Blood, Arterial Whole blood specimen / Unknown 05/06/2024 1:33 PM EDT 05/06/2024 1:34 PM EDT us Maite Austin MD LAB POINT OF CARE TE ST DOCKED DEVICE UNSOLICITED RESULTS Final Result [facility] [address] [place] [address] * (ABNORMAL) POCT arterial blood gas gem (05/06/2024 1:05 PM EDT) pH, Arterial 7.35 7.35 - 7.45 05/07/2024 7:58 AM [facility] pCO2, Arterial 45 35 - 48 mm Hg 05/07/2024 7:58 AM [facility] pO2, Arterial 289(H) 83 - 108 mm Hg 05/07/2024 7:58 AM [facility] SO2, Arterial 99(H) 94 - 98 % 05/07/2024 7:58 AM [facility] Base Excess, Arterial -1.1 -2 - 3 mmol/L 05/07/2024 7:58 AM [facility] HCO3, Arterial 24.8 22 - 26 mmol/L 05/07/2024 7:58 AM [facility] Total Hemoglobin, Arterial, Whole Blood <6.0(LL) 11.2 - 15.7 g/dL 05/07/2024 7:58 AM [facility] Sodium, Arterial 134(L) 136 - 145 mmol/L 05/07/2024 7:58 AM [facility] Potassium, Arterial 5.9(H) 3.6 - 4.9 mmol/L 05/07/2024 7:58 AM [facility] Chloride, Whole Blood 102 97 - 107 mmol/L 05/07/2024 7:58 AM [facility] Glucose, Arterial 96 74 - 99 mg/dL 05/07/2024 7:58 AM [facility] Ionized Calcium, Arterial 3.5(L) 4.6 - 5.1 mg/dL 05/07/2024 7:58 AM [facility] Lactate, Arterial 1.6 0.5 - 1.6 mmol/L 05/07/2024 7:58 AM [facility] Body Temperature 37.0 Celsius 05/07/2024 7:58 AM [facility] pH, Temp Corrected, Arterial 7.35 7.35 - 7.45 05/07/2024 7:58 AM [facility] pCO2, Temp Corrected, Arterial 45 35 - 48 mm Hg 05/07/2024 7:58 AM [facility] pO2, Temp Corrected, Arterial 289(H) 83 - 108 mm Hg 05/07/2024 7:58 AM [facility] [employer] 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 KeshawnHeriberto browningjay 05/07/2024 7:58 AM EDT [facility] Blood, Arterial Whole blood specimen / Unknown 05/06/2024 1:05 PM EDT 05/07/2024 7:58 AM EDT us Maite Austin MD LAB POINT OF CARE TE ST DOCKED DEVICE UNSOLICITED RESULTS Final Result [facility] [address] [place] [address] * (ABNORMAL) POCT arterial blood gas gem (05/06/2024 11:25 AM EDT) pH, Arterial 7.23(LL) 7.35 - 7.45 05/06/2024 11:30 AM EDT [facility] pCO2, Arterial 64(HH) 35 - 48 mm Hg 05/06/2024 11:30 AM EDT [facility] pO2, Arterial 119(H) 83 - 108 mm Hg 05/06/2024 11:30 AM EDT [facility] SO2, Arterial 100(H) 94 - 98 % 05/06/2024 11:30 AM EDT [facility] Base Excess, Arterial -1.8 -2 - 3 mmol/L 05/06/2024 11:30 AM EDT [facility] HCO3, Arterial 26.8(H) 22 - 26 mmol/L 05/06/2024 11:30 AM EDT [facility] Total Hemoglobin, Arterial, Whole Blood 11.9 11.2 - 15.7 g/dL 05/06/2024 11:30 AM EDT [facility] Hematocrit, Arterial 36.0 34.0 - 45.0 % 05/06/2024 11:30 AM EDT [facility] Sodium, Arterial 136 136 - 145 mmol/L 05/06/2024 11:30 AM EDT [facility] Potassium, Arterial 3.8 3.6 - 4.9 mmol/L 05/06/2024 11:30 AM EDT [facility] Chloride, Whole Blood 103 97 - 107 mmol/L 05/06/2024 11:30 AM EDT [facility] Glucose, Arterial 136(H) 74 - 99 mg/dL 05/06/2024 11:30 AM EDT [facility] Ionized Calcium, Arterial 4.8 4.6 - 5.1 mg/dL 05/06/2024 11:30 AM EDT [facility] Lactate, Arterial 1.0 0.5 - 1.6 mmol/L 05/06/2024 11:30 AM EDT [facility] Body Temperature 37.0 Celsius 05/06/2024 11:30 AM EDT [facility] pH, Temp Corrected, Arterial 7.23(LL) 7.35 - 7.45 05/06/2024 11:30 AM EDT [facility] pCO2, Temp Corrected, Arterial 64(HH) 35 - 48 mm Hg 05/06/2024 11:30 AM EDT [facility] pO2, Temp Corrected, Arterial 119(H) 83 - 108 mm Hg 05/06/2024 11:30 AM EDT [facility] J[employer] 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 Jake Angeles 05/06/2024 11:30 AM EDT [facility] Blood, Arterial Whole blood specimen / Unknown 05/06/2024 11:25 AM EDT 05/06/2024 11:30 AM EDT us Erum Bahena MD LAB POINT OF CARE TEST DOCKED DEVICE UNSOLICITED RESULTS Final Result Performing Organization Address City/State/[facility] Co de Phone Number [facility] [address] [place], [place] [id number] * (ABNORMAL) QPLUS (05/06/2024 10:36 AM EDT) Clot Time 161 104 - 166 Seconds 05/06/2024 10:49 AM EDT [facility] Clot Time Ratio 1.2 0.8 - 1.2 10:49 AM EDT [facility] Comment:The Clot Time Ratio (CTR) is a calculated parameter. CTR values of 0.8 1.2 are demonstrated to be typical of n ormal patient samples. Samples with CTR values > 1.4 are indicative of prolongation of the intrinsic pathway clotting time, likely due to the influence of unfractionated heparin. POCT Clot Stiffness 36.4(H) 13.0 - 33.2 hectoPascals 05/06/2024 10:49 AM EDT [facility] Platelet Contribution to Clot Stiffnes 31.9(H) 11.9 - 29.8 hectoPascals 05/06/2024 10:49 AM EDT [facility] Fibrinogen Contribution to Clot Stiffness 4.5(H) 1.0 - 3.7 hectoPascals 05/06/2024 10:49 AM EDT [facility] Heparinase Clot Time 134 103 - 153 Seconds 05/06/2024 10:49 AM EDT [facility] [employer] 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 Alfie Mueller 05/06/2024 10:49 AM EDT [facility] Device ID [id number] 05/06/2024 10:49 AM EDT [facility] Whole Blood 05/06/2024 10:3 6 AM EDT 05/06/2024 10:49 AM EDT us Erum Bahena MD LAB POINT OF CARE TEST DOCKED DEVICE UNSOLICITED RESULTS Final Result Performing Organization Address City/State/[facility] Co de Phone Number [facility] [address] [place] [address] * (ABNORMAL) POCT arterial blood gas gem (05/06/2024 9:31 AM EDT) pH, Arterial 7.36 7.35 - 7.45 05/06/2024 9:36 AM EDT [facility] pCO2, Arterial 47 35 - 48 mm Hg 05/06/2024 9:36 AM EDT [facility] pO2, Arterial 250(H) 83 - 108 mm Hg 05/06/2024 9:36 AM EDT [facility] SO2, Arterial 100(H) 94 - 98 % 05/06/2024 9:36 AM EDT [facility] Base Excess, Arterial 0.7 -2 - 3 mmol/L 05/06/2024 9:36 AM EDT [facility] HCO3, Arterial 26.6(H) 22 - 26 mmol/L 05/06/2024 9:36 AM EDT [facility] Total Hemoglobin, Arterial, Whole Blood 12.2 11.2 - 15.7 g/dL 05/06/2024 9:36 AM EDT [facility] Hematocrit, Arterial 37.0 34.0 - 45.0 % 05/06/2024 9:36 AM EDT [facility] Sodium, Arterial 136 136 - 145 mmol/L 05/06/2024 9:36 AM EDT [facility] Potassium, Arterial 4.0 3.6 - 4.9 mmol/L 05/06/2024 9:36 AM EDT [facility] Chloride, Whole Blood 103 97 - 107 mmol/L 05/06/2024 9:36 AM EDT [facility] Glucose, Arterial 94 74 - 99 mg/dL 05/06/2024 9:36 AM EDT [facility] Ionized Calcium, Arterial 4.8 4.6 - 5.1 mg/dL 05/06/2024 9:36 AM EDT [facility] Lactate, Arterial 1.4 0.5 - 1.6 mmol/L 05/06/2024 9:36 AM EDT [facility] Body Temperature 37.0 Celsius 05/06/2024 9:36 AM EDT [facility] pH, Temp Corrected, Arterial 7.36 7.35 - 7.45 05/06/2024 9:36 AM EDT [facility] pCO2, Temp Corrected, Arterial 47 35 - 48 mm Hg 05/06/2024 9:36 AM EDT [facility] pO2, Temp Corrected, Arterial 250(H) 83 - 108 mm Hg 05/06/2024 9:36 AM EDT [facility] J[employer] 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 Alfie Turner 05/06/2024 9:36 AM EDT [facility] Blood, Arterial Whole blood specimen / Unknown 05/06/2024 9:31 AM EDT 05/06/2024 9:36 AM EDT Erum Bahena MD LAB POINT OF CARE TEST DOCKED DEVICE UNSOLICITED RESULTS Final Result [facility] [address] [place] [id number] * Prepare Leukocyte Reduced RBC: 4 Units (05/06/2024 9:04 AM EDT) [facility] Signature Product Code C1710S77 CH BLOO D BANK Dispense Status Transfused BLOOD BANK Blood Expiration Date [id number] BLOOD BANK Unit Number [id number] CH B LOOD BANK Product Blood Type 7300 BLOOD BANK Blood Type B+ BLOOD BANK Crossmatch Compatible BLOOD BANK Product Code [id number] CH BLOO D BANK Dispense Status Transfused CH BLOOD BANK Blood Expiration Date [id number] BLOOD BANK Unit Number [id number] CH B LOOD BANK Product Blood Type 7300 CH BLOOD BANK Blood Type B+ CH BLOOD BANK Crossmatch Compatible CH BLOOD BANK Product Code [id number] CH BLOO D BANK Dispense Status Transfused CH BLOOD BANK Blood Expiration Date [id number] CH BLOOD BANK Unit Number [id number] CH B LOOD BANK Product Blood Type 7300 CH BLOOD BANK Blood Type B+ CH BLOOD BANK Crossmatch Compatible CH BLOOD BANK Product Code [id number] CH BLOO D BANK Dispense Status Transfused CH BLOOD BANK Blood Expiration Date [id number] BLOOD BANK Unit Number [id number] CH B LOOD BANK Product Blood Type 7300 CH BLOOD BANK Blood Type B+ CH BLOOD BANK Crossmatch Compatible CH BLOOD BANK Other us Shola Sheridan APRN BLOOD BANK PRODUCT ORDERABLE S Final Result [facility] [address] [place] [address], * Light Green Top (05/06/2024 12:07 AM EDT) Extra Hold for add-ons 05/06/2024 3:01 AM EDT [facility] Comment:Auto resulted. Blood Venous blood specimen / Unknown 05/06/2024 12:07 AM EDT 05/06/2024 12:26 AM EDT us Erum Bahena MD LAB BLOOD ORDERABLES Namrata l Result [facility] [address] [place] [address] * Anti Xa Level by Unfractionated Heparin - Heparin Drip Titration (05/06/2024 12:07 AM EDT) Anti Xa Level Unfractionated Heparin 0.36 <1.00 IU/mL LAB COAGULATION METHOD 05/06/2024 12:51 AM EDT [facility] Blood Venous blood specimen / Unknown Venipuncture / Unknown 05/06/2024 12:07 AM EDT 05/06/2024 12:26 AM EDT [facility] - 05/06/2024 12:51 AM EDT Therapeutic Range: UFH Full Dose and ACS/AR protocols*: 0.30 - 0.70 IU/mL UFH Low Dose protocol*: 0.25 - 0.50 IU/mL UFH prophylaxis: Not established Marylu Carvajal ADMISSIONS SUPERVISOR, DNP LAB BLOOD ORDERABLES Final Result [facility] [address] [place] [address] * (ABNORMAL) CBC W/O differential - Hit surveillance (05/06/2024 12:07 AM EDT) WBC Count 15.16(H) 3.70 - 10.30 10*3/uL LAB HEMATOLOGY METHOD 05/06/2024 12:36 AM EDT [facility] RBC Count 3.96 3.90 - 5.20 10*6/uL LAB HEMATOLOGY METHOD 05/06/2024 12:36 AM EDT [facility] HGB 12.1 11.2 - 15.7 g/dL LAB HEMATOLOGY METHOD 05/06/2024 12:36 AM EDT [facility] HCT 34.5 34.0 - 45.0 % LAB HEMATOLOGY METHOD 05/06/2024 12:36 AM EDT [facility] Platelet Count 390(H) 155 - 369 10*3/uL LAB HEMATOLOGY METHOD 05/06/2024 12:36 AM EDT [facility] MCV 87 79 - 98 fL LAB HEMATOLOGY METHOD 05/06/2024 12:36 AM EDT [facility] MCH 30.6 26.0 - 32.0 pg LAB HEMATOLOGY METHOD 05/06/2024 12:36 AM EDT [facility] MCHC 35.1 30.7 - 35.5 g/dL LAB HEMATOLOGY METHOD 05/06/2024 12:36 AM EDT [facility] RDW 13.2 11.5 - 14.5 % LAB HEMATOLOGY METHOD 05/06/2024 12:36 AM EDT [facility] MPV 10.3 8.8 - 12.5 fL LAB HEMATOLOGY METHOD 05/06/2024 12:36 AM EDT [facility] nRBC 0.0 <=0.0 per 100 WBCs LAB HEMATOLOGY METHOD 05/06/2024 12:36 AM EDT [facility] Blood Venous blood specimen / Unknown Venipuncture / Unknown 05/06/2024 12:07 AM EDT 05/06/2024 12:25 AM EDT us Marylu Carvajal ADMISSIONS SUPERVISOR, DNP LAB BLOOD ORDERABLES Final Result [facility] [address] [place] [address] * (ABNORMAL) P2Y12 Platelet Receptor Blockade, Verify Now PRU (05/06/2024 12:07 AM EDT) P2Y12 PRU 134(L) 194 - 418 PRU 05/06/2024 12:32 AM EDT [facility] Blood Venous blood specimen / Unknown Venipuncture / Unknown 05/06/2024 12:07 AM EDT 05/06/2024 12:23 AM EDT Narrative [facility] - 05/06/2024 12:32 AM EDT P2Y12 [...] to the clinician. Testing performed in the [facility] Special Coagulation. Trinity Yousif APRN LAB BLOOD ORDERABLES Final Res ult [facility] [address] [place] [address] * Type and Screen (05/05/2024 4:16 PM EDT) ABO/Rh B Positive 05/05/2024 3:59 PM EDT [facility]LO[facility] Antibody Screen Negative 05/05/2024 3:59 PM EDT [facility] Specimen Expiration 05/08/2024 23:59 05/05/2024 3:59 PM EDT [facility] Blood Venous blood specimen / Unknown Venipuncture / Unknown 05/05/2024 4:16 PM EDT 05/05/2024 4:33 PM EDT Trinity Yousif APRN [facility] BLOOD BANK TEST ORDERABLES Final Result Performing Organization Address [facility] Co de Phone Number BLOOD BANK [address] * Anti Xa Level by Unfractionated Heparin - Heparin Drip Titration (05/05/2024 6:19 AM EDT) Pathologist [facility] Anti Xa Level Unfractionated Heparin 0.39 <1.00 IU/mL LAB COAGULATION METHOD 05/05/2024 7:07 AM EDT [facility] Blood Venous blood specimen / Unknown Venipuncture / Unknown 05/05/2024 6:19 AM EDT 05/05/2024 6:32 AM EDT Narrative [facility] - 05/05/2024 7:07 AM EDT Therapeutic Range: UFH Full Dose and ACS/AR protocols*: 0.30 - 0.70 IU/mL UFH Low Dose protocol*: 0.25 - 0.50 IU/mL UFH prophylaxis: Not established Marylu Carvajal APRN, JORGE LAB BLOOD ORDERABLES Final Result [facility] [address] [place] [address] * (ABNORMAL) CBC W/O differential - Hit surveillance (05/05/2024 12:32 AM EDT) WBC Count 13.31(H) 3.70 - 10.30 10*3/uL LAB HEMATOLOGY METHOD 05/05/2024 12:56 AM EDT [facility] RBC Count 3.98 3.90 - 5.20 10*6/uL LAB HEMATOLOGY METHOD 05/05/2024 12:56 AM EDT [facility] HGB 12.2 11.2 - 15.7 g/dL LAB HEMATOLOGY METHOD 05/05/2024 12:56 AM EDT [facility] HCT 35.1 34.0 - 45.0 % LAB HEMATOLOGY METHOD 05/05/2024 12:56 AM EDT [facility] Platelet Count 378(H) 155 - 369 10*3/uL LAB HEMATOLOGY METHOD 05/05/2024 12:56 AM EDT [facility] MCV 88 79 - 98 fL LAB HEMATOLOGY METHOD 05/05/2024 12:56 AM EDT [facility] MCH 30.7 26.0 - 32.0 pg LAB HEMATOLOGY METHOD 05/05/2024 12:56 AM EDT [facility] MCHC 34.8 30.7 - 35.5 g/dL LAB HEMATOLOGY METHOD 05/05/2024 12:56 AM EDT [facility] RDW 13.2 11.5 - 14.5 % LAB HEMATOLOGY METHOD 05/05/2024 12:56 AM EDT [facility] MPV 10.1 8.8 - 12.5 fL LAB HEMATOLOGY METHOD 05/05/2024 12:56 AM EDT [facility] nRBC 0.0 <=0.0 per 100 WBCs LAB HEMATOLOGY METHOD 05/05/2024 12:56 AM EDT [facility] Blood Venous blood specimen / Unknown Venipuncture / Unknown 05/05/2024 12:32 AM EDT 05/05/2024 12:40 AM EDT Marylu Carvajal ADMISSIONS SUPERVISOR, DNP LAB BLOOD ORDERABLES Final Result [facility] [address] [place] [address] * (ABNORMAL) P2Y12 Platelet Receptor Blockade, Verify Now PRU (05/05/2024 12:32 AM EDT) P2Y12 PRU 132(L) 194 - 418 PRU 05/05/2024 12:56 AM EDT [facility] Blood Venous blood specimen / Unknown Venipuncture / Unknown 05/05/2024 12:32 AM EDT 05/05/2024 12:41 AM EDT Narrative [facility] - 05/05/2024 12:56 AM EDT P2Y12 [...] to the clinician. Testing performed in the [facility] Special Coagulation. us Trinity Yousif APRN LAB BLOOD ORDERABLES Final Res ult [facility] [address] [place] [address] * Magnesium (05/05/2024 12:32 AM EDT) Magnesium, Plasma 1.9 1.9 - 2.4 mg/dL 05/05/2024 1:14 AM EDT [facility] Blood Venous blood specimen / Unknown Venipuncture / Unknown 05/05/2024 12:32 AM EDT 05/05/2024 12:40 AM EDT us Trinity Yousif APRN LAB BLOOD ORDERABLES Final Res ult [facility] [address] [place] [address] * (ABNORMAL) Comprehensive metabolic panel (05/05/2024 12:32 AM EDT) Pathologist [facility] Glucose, Plasma 147(H) 74 - 99 mg/dL 05/05/2024 1:14 AM EDT [facility] BUN, Plasma 11 7 - 21 mg/dL 05/05/2024 1:14 AM EDT [facility] Creatinine, Plasma 0.84 0.60 - 1.10 mg/dL 05/05/2024 1:14 AM EDT [facility] BUN/Creatinine Ratio 13 05/05/2024 1:14 AM EDT [facility] Sodium, Plasma 136 136 - 145 mmol/L 05/05/2024 1:14 AM EDT [facility] Potassium, Plasma 3.9 3.6 - 4.9 mmol/L 05/05/2024 1:14 AM EDT [facility] Chloride, Plasma 103 97 - 107 mmol/L 05/05/2024 1:14 AM EDT [facility] CO2, Plasma 20(L) 22 - 29 mmol/L 05/05/2024 1:14 AM EDT [facility] Anion Gap 13 6 - 16 mmol/L 05/05/2024 1:14 AM EDT [facility] Total Calcium, Plasma 8.6(L) 8.9 - 10.2 mg/dL 05/05/2024 1:14 AM EDT [facility] Total Protein 6.5 6.3 - 7.9 g/dL 05/05/2024 1:14 AM EDT [facility] Albumin, Plasma 3.7 3.5 - 5.2 g/dL 05/05/2024 1:14 AM EDT [facility] AST, Plasma 36(H) 10 - 35 U/L 05/05/2024 1:14 AM EDT [facility] Comment:Hemolyzed, result ma y be falsely increased. ALT, Plasma 28 10 - 35 U/L 05/05/2024 1:14 AM EDT [facility] Alkaline Phosphatase, Plasma 142(H) 35 - 104 U/L 05/05/2024 1:14 AM EDT [facility] Total Bilirubin, Plasma <0.2(L) 0.2 - 1.1 mg/dL 05/05/2024 1:14 AM EDT [facility] eGFRcr 82.7 mL/min/1.7 3m*2 05/05/2024 1:14 AM EDT [facility] Comment:Reported eGFRcr in m L/min/1.73m2 is based the CKD-EPI 2020 equation that does not use a race coefficient. Blood Venous blood specimen / Unknown Venipuncture / Unknown 05/05/2024 12:32 AM EDT 05/05/2024 12:40 AM EDT Trinity Yousif APRN LAB BLOOD ORDERABLES Final Res ult Performing Organization Address City/State/[facility] Co de Phone Number [facility] [address] [place] [address] * Anti Xa Level by Unfractionated Heparin - Heparin Drip Titration (05/05/2024 12:32 AM EDT) Anti Xa Level Unfractionated Heparin 0.32 <1.00 IU/mL LAB COAGULATION METHOD 05/05/2024 1:04 AM EDT [facility] Blood Venous blood specimen / Unknown Venipuncture / Unknown 05/05/2024 12:32 AM EDT 05/05/2024 12:40 AM EDT Narrative [facility] - 05/05/2024 1:04 AM EDT Therapeutic Range: UFH Full Dose and ACS/AR protocols*: 0.30 - 0.70 IU/mL UFH Low Dose protocol*: 0.25 - 0.50 IU/mL UFH prophylaxis: Not established Marylu Carvajal ADMISSIONS SUPERVISOR, DNP LAB BLOOD ORDERABLES Final Result [facility] [address] [place] [address] * Anti Xa Level by Unfractionated Heparin - Heparin Drip Titration (05/04/2024 4:05 PM EDT) Pathologist [facility] Anti Xa Level Unfractionated Heparin 0.23 <1.00 IU/mL LAB COAGULATION METHOD 05/04/2024 4:47 PM EDT [facility] Blood Venous blood specimen / Unknown Venipuncture / Unknown 05/04/2024 4:05 PM EDT 05/04/2024 4:15 PM EDT Narrative [facility] - 05/04/2024 4:47 PM EDT Therapeutic Range: UFH Full Dose and ACS/AR protocols*: 0.30 - 0.70 IU/mL UFH Low Dose protocol*: 0.25 - 0.50 IU/mL UFH prophylaxis: Not established Marylu Carvajal APRN, DNP LAB BLOOD ORDERABLES Final Result Performing Organization Address [facility] Co de Phone Number [facility] [address] [place] [address] * (ABNORMAL) P2Y12 Platelet Receptor Blockade, Verify Now PRU (05/04/2024 9:36 AM EDT) [facility] P2Y12 PRU 78(L) 194 - 418 PRU 05/04/2024 10:04 AM EDT [facility] Blood Venous blood specimen / Unknown Venipuncture / Unknown 05/04/2024 9:36 AM EDT 05/04/2024 9:46 AM EDT Narrative [facility] - 05/04/2024 10:04 AM EDT P2Y12 [...] to the clinician. Testing performed in the [facility] Special Coagulation. Trinity Yousif APRN LAB BLOOD ORDERABLES Final Res ult Performing Organization Address [facility]/ZIP Co de Phone Number [facility] [address] [place] [address] * Anti Xa Level by Unfractionated Heparin - Heparin Drip Titration (05/04/2024 9:36 AM EDT) Anti Xa Level Unfractionated Heparin <0.11 <1.00 IU/mL LAB COAGULATION METHOD 05/04/2024 10:13 AM EDT [facility] Blood Venous blood specimen / Unknown Venipuncture / Unknown 05/04/2024 9:36 AM EDT 05/04/2024 9:47 AM EDT Narrative [facility] - 05/04/2024 10:13 AM EDT Therapeutic Range: UFH Full Dose and ACS/AR protocols*: 0.30 - 0.70 IU/mL UFH Low Dose protocol*: 0.25 - 0.50 IU/mL UFH prophylaxis: Not established Marylu Carvajal APRN, DNP LAB BLOOD ORDERABLES Final Result Performing Organization Address [facility]/ZIP Co de Phone Number [facility] [address] [place] [address] * (ABNORMAL) POCT glucose meter (05/04/2024 5:13 AM EDT) POCT Glucose 114(H) 74 - 99 mg/dL 05/04/2024 5:15 AM EDT [facility] Comment:Accuracy of a glucos e result [...] Comment 05/04/2024 5:15 AM EDT [facility] 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 Daisy Toth 05/04/2024 5:15 AM EDT [facility] Device ID [id number] 05/04/2024 5:15 AM EDT [facility] Specimen Type POC Capillary 05/04/2024 5:15 AM EDT [facility] Blood Capillary blood specimen / Unknown 05/04/2024 5:13 AM EDT 05/04/2024 5:15 AM EDT Erum Bahena MD LAB POINT OF CARE TEST DOCKED DEVICE UNSOLICITED RESULTS Final Result Performing Organization Address City/[facility] Co de Phone Number [facility] [address] [place] [address] * Anti Xa Level by Unfractionated Heparin - Heparin Drip Titration (05/04/2024 2:50 AM EDT) Anti Xa Level Unfractionated Heparin 0.32 <1.00 IU/mL LAB COAGULATION METHOD 05/04/2024 3:16 AM EDT [facility] Blood Venous blood specimen / Unknown Venipuncture / Unknown 05/04/2024 2:50 AM EDT 05/04/2024 2:56 AM EDT Narrative [facility] - 05/04/2024 3:16 AM EDT Therapeutic Range: UFH Full Dose and ACS/AR protocols*: 0.30 - 0.70 IU/mL UFH Low Dose protocol*: 0.25 - 0.50 IU/mL UFH prophylaxis: Not established Marylu Carvajal APRN, DNP LAB BLOOD ORDERABLES Final Result [facility] [address] [place] [address] * (ABNORMAL) CBC W/O differential - Hit surveillance (05/04/2024 2:50 AM EDT) WBC Count 12.80(H) 3.70 - 10.30 10*3/uL LAB HEMATOLOGY METHOD 05/04/2024 3:27 AM EDT [facility] RBC Count 3.92 3.90 - 5.20 10*6/uL LAB HEMATOLOGY METHOD 05/04/2024 3:27 AM EDT [facility] HGB 11.8 11.2 - 15.7 g/dL LAB HEMATOLOGY METHOD 05/04/2024 3:27 AM EDT [facility] HCT 34.8 34.0 - 45.0 % LAB HEMATOLOGY METHOD 05/04/2024 3:27 AM EDT [facility] Platelet Count 372(H) 155 - 369 10*3/uL LAB HEMATOLOGY METHOD 05/04/2024 3:27 AM EDT [facility] MCV 89 79 - 98 fL LAB HEMATOLOGY METHOD 05/04/2024 3:27 AM EDT [facility] MCH 30.1 26.0 - 32.0 pg LAB HEMATOLOGY METHOD 05/04/2024 3:27 AM EDT [facility] MCHC 33.9 30.7 - 35.5 g/dL LAB HEMATOLOGY METHOD 05/04/2024 3:27 AM EDT [facility] RDW 13.3 11.5 - 14.5 % LAB HEMATOLOGY METHOD 05/04/2024 3:27 AM EDT [facility] MPV 10.1 8.8 - 12.5 fL LAB HEMATOLOGY METHOD 05/04/2024 3:27 AM EDT [facility] nRBC 0.0 <=0.0 per 100 WBCs LAB HEMATOLOGY METHOD 05/04/2024 3:27 AM EDT [facility] Blood Venous blood specimen / Unknown Venipuncture / Unknown 05/04/2024 2:50 AM EDT 05/04/2024 2:56 AM EDT Marylu Carvajal ADMISSIONS SUPERVISOR, DNP LAB BLOOD ORDERABLES Final Result [facility] [address] [place] [address] * (ABNORMAL) P2Y12 Platelet Receptor Blockade, Verify Now PRU (05/04/2024 2:50 AM EDT) P2Y12 PRU 100(L) 194 - 418 PRU 05/04/2024 3:15 AM EDT [facility] Blood Venous blood specimen / Unknown Venipuncture / Unknown 05/04/2024 2:50 AM EDT 05/04/2024 3:02 AM EDT Narrative [facility] - 05/04/2024 3:15 AM EDT P2Y12 [...] to the clinician. Testing performed in the [facility] for Special Coagulation. Shola Sheridan APRN LAB BLOOD ORDERABLES Final R esult [facility] [address] [place] [address] * Magnesium, Plasma (05/04/2024 2:50 AM EDT) Magnesium, Plasma 2.0 1.9 - 2.4 mg/dL 05/04/2024 3:24 AM EDT [facility] Blood Venous blood specimen / Unknown Venipuncture / Unknown 05/04/2024 2:50 AM EDT 05/04/2024 2:56 AM EDT Marylu Carvajal APRN, DNP LAB BLOOD ORDERABLES Final Result [facility] [address] [place] [address] * (ABNORMAL) Basic metabolic panel (05/04/2024 2:50 AM EDT) Glucose, Plasma 109(H) 74 - 99 mg/dL 05/04/2024 3:24 AM EDT [facility] BUN, Plasma 12 7 - 21 mg/dL 05/04/2024 3:24 AM EDT [facility] Creatinine, Plasma 0.94 0.60 - 1.10 mg/dL 05/04/2024 3:24 AM EDT [facility] BUN/Creatinine Ratio 13 05/04/2024 3:24 AM EDT [facility] Sodium, Plasma 139 136 - 145 mmol/L 05/04/2024 3:24 AM EDT [facility] Potassium, Plasma 3.5(L) 3.6 - 4.9 mmol/L 05/04/2024 3:24 AM EDT [facility] Chloride, Plasma 104 97 - 107 mmol/L 05/04/2024 3:24 AM EDT [facility] CO2, Plasma 25 22 - 29 mmol/L 05/04/2024 3:24 AM EDT [facility] Anion Gap 10 6 - 16 mmol/L 05/04/2024 3:24 AM EDT [facility] Total Calcium, Plasma 8.4(L) 8.9 - 10.2 mg/dL 05/04/2024 3:24 AM EDT [facility] eGFRcr 72.3 mL/min/1.7 3m*2 05/04/2024 3:24 AM EDT [facility] Comment:Reported eGFRcr in m L/min/1.73m2 is based the CKD-EPI 2020 equation that does not use a race coefficient. Blood Venous blood specimen / Unknown Venipuncture / Unknown 05/04/2024 2:50 AM EDT 05/04/2024 2:56 AM EDT Marylu Carvajal APRN, DNP LAB BLOOD ORDERABLES Final Result [facility] [address] [place] [id number] * XR Chest 2 Views (05/03/2024 12:19 [...] on 05/03/2024 1:34 PM us Shola Sheridan ADMISSIONS SUPERVISOR IMG XR PROCEDURES Final Resu lt * Pulmonary function testing (05/03/2024 8:37 AM EDT) [id number] 2.23 L 05/03/2024 8:31 AM EDT VYAIRE [...] 1.84 05/03/2024 8:31 AM EDT VYAIRE PFT [id number] -2.47 05/03/2024 8:31 AM EDT VYAIRE PFT FEV1_Pre%Pred 65 % % 05/03/2024 8:31 AM EDT VYAIRE PFT FEV1 PREDAUTH US_Quanjer GLI (2011) 05/03/2024 8:31 AM EDT VYAIRE PFT FEV1 Z-SCORE -2.47 05/03/2024 8:31 AM EDT VYAIRE PFT FEV1/FVC PRE 69.79 % 05/03/2024 8:31 AM EDT VYAIRE PFT BIL2FRYCBND 80 05/03/2024 8:31 AM EDT VYAIRE PFT VKS4KDDOZL 69 05/03/2024 8:31 AM EDT VYAIRE PFT ZXN9UCUUCAPOEFKD -1.53 05/04/19 8:31 AM EDT VYAIRE PFT XBK9LTHEBP%PRED 87 % % 8:31 AM EDT VYAIRE PFT [id number] US_Quanjer GLI (2011) 05/03/2024 8:31 AM EDT VYAIRE PFT BXO5LHMCWHTQE -2 05/03/2024 8:31 AM EDT VYAIRE PFT SYS91-46% PRE 0.96 L/s 05/03/2024 8:31 AM EDT VYAIRE PFT KTU69-31%_Pred 2.36 05/03/2024 8:31 AM EDT VYAIRE PFT EPY6801%LLN 1.27 05/03/2024 8:31 AM EDT VYAIRE PFT QQE1686%PREZSCORE -2.25 025 8:31 AM EDT VYAIRE PFT IHZ3135%PRE%PRED 41 % % 05/04/19 8:31 AM EDT VYAIRE PFT ANH4537%[facility] US_Quanjer GLI (2011) 05/03/2024 8:31 AM EDT VYAIRE PFT PEF PRE 4.76 L/s 05/03/2024 8:31 AM EDT VYAIRE PFT PEF PRED 6.14 05/03/2024 8:31 AM EDT VYAIRE PFT PEF LLN 4.58 05/03/2024 8:31 AM EDT VYAIRE PFT PEFPREZSCORE -1.46 05/03/2024 8:31 AM EDT VYAIRE PFT PEFPRE%PRED 78 % % 05/03/2024 8:31 AM EDT VYAIRE PFT PEF [facility] NHANES III (1998) 05/03/2024 8:31 AM EDT VYAIRE PFT TJYGJZERLSMNBEPU2YTJ 19.34 ml/(min* mmHg) 05/03/2024 8:31 AM EDT VYAIRE PFT DLCOSINGLEBREATH PRED 18.72 05/03/2024 8:31 AM EDT VYAIRE PFT DLCOSINGLEBREATH LLN 14.50 04/15 8:31 AM EDT VYAIRE PFT DLCOSINGLEBREATH Z-SCORE 0.22 05/03/2024 8:31 AM EDT VYAIRE PFT DLCOSINGLEBREATH % PRED 103.3 % 05/03/2024 8:31 AM EDT VYAIRE PFT DLCOSINGLEBREATH [facility] Elvis ASENCIOO GLI (2019) 05/03/2024 8:31 AM EDT VYAIRE PFT DLCOSINGLEBREATH Z-SCORE 0.22 05/03/2024 8:31 AM EDT VYAIRE PFT KWWJBJKQKXQSVXBPD2OX E 20.34 ml/(min* mmHg) 05/03/2024 8:31 AM EDT VYAIRE PFT DLCOCSINGLEBREATH PRED 18.72 05/03/2024 8:31 AM EDT VYAIRE PFT DLCOCSINGLEBREATH LLN 14.50 05/03/2024 8:31 AM EDT VYAIRE PFT DLCOCSINGLEBREATH Z-SCORE 0.56 05/03/2024 8:31 AM EDT VYAIRE PFT DLCOCSINGLEBREATH % PRED 108.7 % 05/03/2024 8:31 AM EDT VYAIRE PFT DLCOCSINGLEBREATH PREDAUTH Stanojevic TLCO GLI (2019) 05/03/2024 8:31 AM EDT VYAIRE PFT MBWUZO6IDM 4.32 ml/(min* mmHg*L) 05/03/2024 8:31 AM EDT VYAIRE PFT DLCOVAPRED 4.40 05/03/2024 8:31 AM EDT VYAIRE PFT DLCOVALLN 3.42 05/03/2024 8:31 AM EDT VYAIRE PFT DLCOVAZSCORE -0.13 05/03/2024 8:31 AM EDT VYAIRE PFT DLCOVA%PRED 98.2 % 05/03/2024 8:31 AM EDT VYAIRE PFT DLCOVAPREDAUTH Stanojevic TLCO GLI (2019) 05/03/2024 8:31 AM EDT VYAIRE PFT DLCOVAZSCORE -0.13 05/03/2024 8:31 AM EDT VYAIRE PFT ICMRNUBGU4QTD 4.55 ml/(min* mmHg*L) 05/03/2024 8:31 AM EDT VYAIRE PFT DLCOC SB/VA PRED 4.40 05/04/19 8:31 AM EDT VYAIRE PFT DLCOC SB/VA LLN 3.42 8:31 AM EDT VYAIRE PFT DLCOC SB/VA Z-SCORE 0.23 05/03 8:31 AM EDT VYAIRE PFT DLCOC SB/VA % PRED 103.3 % 2024 8:31 AM EDT VYAIRE PFT DLCOC SB/VA [facility] Elvis TLCO GLI (2019) 05/03/2024 8:31 AM EDT VYAIRE PFT DLCOC SB/VA Z-SCORE 0.23 05/03 8:31 AM EDT VYAIRE PFT XBXBAKNNKNJKLI3HAU 4.47 L 2024 8:31 AM EDT VYAIRE PFT VASINGLEBREATH PRED 4.29 05/03 8:31 AM EDT VYAIRE PFT VASINGLEBREATH LLN 3.49 2024 8:31 AM EDT VYAIRE PFT VASINGLEBREATH Z-SCORE 0.37 05/03/2024 8:31 AM EDT VYAIRE PFT VASINGLEBREATH % PRED 104.4 % 05/03/2024 8:31 AM EDT VYAIRE PFT VASINGLEBREATH [facility] Elvis TLCO GLI (2019) 05/03/2024 8:31 AM EDT VYAIRE PFT VASINGLEBREATH Z-SCORE 0.37 05/03/2024 8:31 AM EDT VYAIRE PFT KXPSJVHHYVCHSPB1IHY 2.44 L 05/03 8:31 AM EDT VYAIRE PFT IVCSINGLEBREATH PRED 2.99 03/ 8:31 AM EDT VYAIRE PFT IVCSINGLEBREATH LLN 2.31 05/03 8:31 AM EDT VYAIRE PFT IVCSINGLEBREATH Z-SCORE -1.32 05/03/2024 8:31 AM EDT VYAIRE PFT IVCSINGLEBREATH % PRED 81.7 % 05/03/2024 8:31 AM EDT VYAIRE PFT IVCSINGLEBREATH [facility] _Casejer GLI (2011) 05/03/2024 8:31 AM EDT VYAIRE PFT HB PRE 11.90 g(Hb)/dL 05/03/2024 8:31 AM EDT VYAIRE PFT ZOL8ENE 4.18 L 05/03/2024 8:31 AM EDT VYAIRE [...] (2019)__ 05/03/2024 8:31 AM EDT VYAIRE PFT DQRBDIRW1XDI 2.31 L 05/03/2024 8:31 AM EDT VYAIRE PFT FRCPLETH PRED 2.37 05/03/2024 8:31 AM EDT VYAIRE PFT FRCPLETH LLN 1.68 05/03/2024 8:31 AM EDT VYAIRE PFT FRCPLETH ULN 3.24 05/03/2024 8:31 AM EDT VYAIRE PFT FRCPLETH Z-SCORE -0.13 05/04/19 8:31 AM EDT VYAIRE PFT FRCPLETH % PRED 97.5 % 8:31 AM EDT VYAIRE PFT FRCPLETH [facility]I (2019)__ 05/03/2024 8:31 AM EDT VYAIRE PFT LGO3PTZ 0.42 L 05/03/2024 8:31 AM EDT VYAIRE [...] (2019)__ 05/03/2024 8:31 AM EDT VYAIRE PFT RV%PGW6KEB 45.22 % 05/03/2024 8:31 AM EDT VYAIRE PFT RV%TLCPRED 31 05/03/2024 8:31 AM EDT VYAIRE PFT RV%TLCLLN 20 05/03/2024 8:31 AM EDT VYAIRE PFT RV%TLCULN 42 05/03/2024 8:31 AM EDT VYAIRE PFT RV%TLCZSCORE 2.12 05/03/2024 8:31 AM EDT VYAIRE PFT RV%TLC%PRED 147.7 % 05/03/2024 8:31 AM EDT VYAIRE PFT RV%TLCPREDAUTH [place] Lung volumes GLI (2019)__ 05/03/2024 8:31 AM EDT VYAIRE PFT KOL5DGG 2.40 L 05/03/2024 8:31 AM EDT VYAIRE PFT Anatomical Region Laterality Modality PFT 05/03/2024 8:06 AM EDT Narrative 05/04/2024 4:54 PM EDT Pulmonary Function Testing Report Rere Hunter 53 y.o. underwent pulmonary function testing today at the [facility]. The patient underwent spirometry, lung volumes by [...] no prior studies for comparison. Marylu Carvajal ADMISSIONS SUPERVISOR, DNP PFT ORDERABLES Namrata l Result * Anti Xa Level by Unfractionated Heparin - Heparin Drip Titration (05/03/2024 7:44 AM EDT) Anti Xa Level Unfractionated Heparin 0.30 <1.00 IU/mL LAB COAGULATION METHOD 05/03/2024 8:34 AM EDT [facility] Blood Venous blood specimen / Unknown Venipuncture / Unknown 05/03/2024 7:44 AM EDT 05/03/2024 7:51 AM EDT Narrative [facility] - 05/03/2024 8:34 AM EDT Therapeutic Range: UFH Full Dose and ACS/AR protocols*: 0.30 - 0.70 IU/mL UFH Low Dose protocol*: 0.25 - 0.50 IU/mL UFH prophylaxis: Not established Marylu Carvajal APRN, DNP LAB BLOOD ORDERABLES Final Result [facility] [address] [place] [address] * (ABNORMAL) CBC W/O differential - Hit surveillance (05/03/2024 4:09 AM EDT) WBC Count 11.21(H) 3.70 - 10.30 10*3/uL LAB HEMATOLOGY METHOD 05/03/2024 4:47 AM EDT [facility] RBC Count 3.87(L) 3.90 - 5.20 10*6/uL LAB HEMATOLOGY METHOD 05/03/2024 4:47 AM EDT [facility] HGB 11.9 11.2 - 15.7 g/dL LAB HEMATOLOGY METHOD 05/03/2024 4:47 AM EDT [facility] HCT 34.0 34.0 - 45.0 % LAB HEMATOLOGY METHOD 05/03/2024 4:47 AM EDT [facility] Platelet Count 353 155 - 369 10*3/uL LAB HEMATOLOGY METHOD 05/03/2024 4:47 AM EDT [facility] MCV 88 79 - 98 fL LAB HEMATOLOGY METHOD 05/03/2024 4:47 AM EDT [facility] MCH 30.7 26.0 - 32.0 pg LAB HEMATOLOGY METHOD 05/03/2024 4:47 AM EDT [facility] MCHC 35.0 30.7 - 35.5 g/dL LAB HEMATOLOGY METHOD 05/03/2024 4:47 AM EDT [facility] RDW 13.4 11.5 - 14.5 % LAB HEMATOLOGY METHOD 05/03/2024 4:47 AM EDT [facility] MPV 10.0 8.8 - 12.5 fL LAB HEMATOLOGY METHOD 05/03/2024 4:47 AM EDT [facility] nRBC 0.0 <=0.0 per 100 WBCs LAB HEMATOLOGY METHOD 05/03/2024 4:47 AM EDT [facility] Blood Venous blood specimen / Unknown Venipuncture / Unknown 05/03/2024 4:09 AM EDT 05/03/2024 4:28 AM EDT Marylu Carvajal APRN, DNP LAB BLOOD ORDERABLES Final Result [facility] [address] [place] [address] * (ABNORMAL) P2Y12 Platelet Receptor Blockade, Verify Now PRU (05/03/2024 4:09 AM EDT) P2Y12 PRU 137(L) 194 - 418 PRU 05/03/2024 5:26 AM EDT [facility] Blood Venous blood specimen / Unknown Venipuncture / Unknown 05/03/2024 4:09 AM EDT 05/03/2024 4:20 AM EDT Narrative [facility] - 05/03/2024 5:26 AM EDT P2Y12 [...] to the clinician. Testing performed in the [facility] Special Coagulation. Anne Marie PHILLIP LAB BLOOD ORDERABLES Final Result Performing Organization Address City/[facility]/ZIP Co de Phone Number [facility] [address] [place] [address] * Magnesium, Plasma (05/03/2024 4:09 AM EDT) [facility] Magnesium, Plasma 2.1 1.9 - 2.4 mg/dL 05/03/2024 4:54 AM EDT [facility] Blood Venous blood specimen / Unknown Venipuncture / Unknown 05/03/2024 4:09 AM EDT 05/03/2024 4:21 AM EDT Marylu Carvajal APRN, JORGE LAB BLOOD ORDERABLES Final Result Performing Organization Address [facility] Co de Phone Number [facility] [address] [place] [address] * (ABNORMAL) Basic metabolic panel (05/03/2024 4:09 AM EDT) Pathologist [facility] Glucose, Plasma 106(H) 74 - 99 mg/dL 05/03/2024 4:54 AM EDT [facility] BUN, Plasma 11 7 - 21 mg/dL 05/03/2024 4:54 AM EDT [facility] Creatinine, Plasma 0.94 0.60 - 1.10 mg/dL 05/03/2024 4:54 AM EDT [facility] BUN/Creatinine Ratio 12 05/03/2024 4:54 AM EDT [facility] Sodium, Plasma 137 136 - 145 mmol/L 05/03/2024 4:54 AM EDT [facility] Potassium, Plasma 3.7 3.6 - 4.9 mmol/L 05/03/2024 4:54 AM EDT [facility] Chloride, Plasma 103 97 - 107 mmol/L 05/03/2024 4:54 AM EDT [facility] CO2, Plasma 25 22 - 29 mmol/L 05/03/2024 4:54 AM EDT [facility] Anion Gap 9 6 - 16 mmol/L 05/03/2024 4:54 AM EDT [facility] Total Calcium, Plasma 8.6(L) 8.9 - 10.2 mg/dL 05/03/2024 4:54 AM EDT [facility] eGFRcr 72.3 mL/min/1.7 3m*2 05/03/2024 4:54 AM EDT [facility] Comment:Reported eGFRcr in m L/min/1.73m2 is based the CKD-EPI 2020 equation that does not use a race coefficient. Blood Venous blood specimen / Unknown Venipuncture / Unknown 05/03/2024 4:09 AM EDT 05/03/2024 4:21 AM EDT Marylu Carvajal APRN, DNP LAB BLOOD ORDERABLES Final Result [facility] [address] [place] [address] * Anti Xa Level by Unfractionated Heparin - Heparin Drip Titration (05/02/2024 11:36 PM EDT) Anti Xa Level Unfractionated Heparin 0.35 <1.00 IU/mL LAB COAGULATION METHOD 05/03/2024 12:04 AM EDT [facility] Blood Venous blood specimen / Unknown Venipuncture / Unknown 05/02/2024 11:36 PM EDT 05/02/2024 11:41 PM EDT Narrative [facility] - 05/03/2024 12:04 AM EDT Therapeutic Range: UFH Full Dose and ACS/AR protocols*: 0.30 - 0.70 IU/mL UFH Low Dose protocol*: 0.25 - 0.50 IU/mL UFH prophylaxis: Not established Marylu Balaji Wei NICHOLSONN, DNP LAB BLOOD ORDERABLES Final Result Performing Organization Address City/[facility]/ZIP Co de Phone Number [facility] [address] [place] [address] * Anti Xa Level by Unfractionated Heparin - Heparin Drip Titration (05/02/2024 6:45 PM EDT) Anti Xa Level Unfractionated Heparin 0.30 <1.00 IU/mL LAB COAGULATION METHOD 05/02/2024 8:02 PM EDT [facility] Blood Venous blood specimen / Unknown Venipuncture / Unknown 05/02/2024 6:45 PM EDT 05/02/2024 6:59 PM EDT Narrative [facility] - 05/02/2024 8:02 PM EDT Therapeutic Range: UFH Full Dose and ACS/AR protocols*: 0.30 - 0.70 IU/mL UFH Low Dose protocol*: 0.25 - 0.50 IU/mL UFH prophylaxis: Not established Marylu H Wei INCHOLSONN, DNP LAB BLOOD ORDERABLES Final Result Performing Organization Address City/[facility]/ZIP Co de Phone Number [facility] [address] [place] [address] * VAS US Carotid Duplex Bilateral (05/02/2024 [...] MD, FACS, FSVS, RPVI on05/03/2024 10:23 AM us Marylu Carvajal APRN, DNP CV VASCULAR PROCEDUR [...] LAB COAGULATION METHOD 05/02/2024 2:05 PM EDT [facility] Blood Venous blood specimen / Unknown Venipuncture / Unknown 05/02/2024 1:05 PM EDT 05/02/2024 1:29 PM EDT Narrative [facility] - 05/02/2024 2:05 PM EDT Therapeutic Range: UFH Full Dose and ACS/AR protocols*: 0.30 - 0.70 IU/mL UFH Low Dose protocol*: 0.25 - 0.50 IU/mL UFH prophylaxis: Not established Marylu Carvajal APRN, DNP LAB BLOOD ORDERABLES Final Result [facility] [address] [place] [address] * ECHO, ADULT TRANSTHORACIC COMPLETE W/ 3D [...] mean PAP 12 mmHg ALEXIA ISCV PA LA(ACCEL) 13.6 mmHg ALEXIA ISCV PA acc slope 487.1 cm/s2 ALEXIA ISCV MPA diam 19 mm ALEXIA ISCV MPA area 2.8 cm2 ALEXIA ISCV MV E Vmax 71.7 cm/s ALEXIA ISCV MV A Vmax 73.2 cm/s ALEXIA ISCV MV E/A 1.0 cm/s LAEXIA ISCV LV Lat e' Velocity 6.6 cm/s [...] is no recent study available for direct odzh-di-kuaw comparison. Left Ventricle Based on the linear [...] is no recent study available for direct erxn-ri-mhlt comparison. Marylu Carvajal APRN, DNP CV ECHO PROCEDURES F inal Result * Anti Xa Level by Unfractionated Heparin - Heparin Drip Titration (05/02/2024 6:28 AM EDT) Anti Xa Level Unfractionated Heparin 0.28 <1.00 IU/mL LAB COAGULATION METHOD 05/02/2024 7:03 AM EDT [facility] Blood Venous blood specimen / Unknown Venipuncture / Unknown 05/02/2024 6:28 AM EDT 05/02/2024 6:34 AM EDT Narrative [facility] - 05/02/2024 7:03 AM EDT Therapeutic Range: UFH Full Dose and ACS/AR protocols*: 0.30 - 0.70 IU/mL UFH Low Dose protocol*: 0.25 - 0.50 IU/mL UFH prophylaxis: Not established Marylu Carvajal APRN, DNP LAB BLOOD ORDERABLES Final Result [facility] [address] [place] [address] * (ABNORMAL) Troponin T, High Sensitivity, 2 Hour, Plasma (05/02/2024 2:23 AM EDT) Troponin T, High Sensitivity, 2 Hour 31(H) <14 ng/L 05/02/2024 2:53 AM EDT [facility] Troponin Delta 3 <10 ng/L 05/02/2024 2:53 AM EDT [facility] Troponin Delta Interpretation Not Significant 05/02/2024 2:53 AM EDT [facility] Comment:Not Significant. No acute change in troponin observed between the baseline and 2 hour samples. Blood Venous blood specimen / Unknown Venipuncture / Unknown 05/02/2024 2:23 AM EDT 05/02/2024 2:26 AM EDT Marylu Carvajal ADMISSIONS SUPERVISOR, DNP LAB BLOOD ORDERABLES Final Result [facility] [address] [place] [address] * CT Chest wo IV Contrast (05/02/2024 [...] MD on 05/02/2024 8:22 AM Marylu Carvajal APRN, JORGE IMG CT PROCEDURES Fi nal Result * Hemoglobin A1c (05/01/2024 11:58 PM EDT) Hemoglobin A1c 5.3 <5.7 % 05/02/2024 6:29 AM EDT [facility] Blood Venous blood specimen / Unknown 05/01/2024 11:58 PM EDT 05/02/2024 12:08 AM EDT Narrative [facility] - 05/02/2024 6:29 AM EDT HA1C Interpretive Data: Diagnosis of Diabetes: Diabetic > or = 6.5% Pre-diabetic 5.7 to 6.4% Non-diabetic < or = 5.6% Glycemic Targets for Type I and Type II Diabetics: Non- Adults <7.0% Adults <6.0% Children and Adolescents <7.5% Source: [place] [employer]. Standards of medical care in diabetes,2017. Diabetes Care.2017:40 (suppl 1):S1-S135. HbA1c assay performed by an ion-exchange chromatography method that is certified traceable to the DCCT. Anne Marie PHILLIP LAB BLOOD ORDERABLES Final Result [facility] [address] [place] [address] * (ABNORMAL) Lipid panel (05/01/2024 11:58 PM EDT) Cholesterol, Plasma 247(H) <200 mg/dL 05/02/2024 6:36 AM EDT [facility] Comment: Cholesterol Reference Range (age >17 years): Desirable <200 mg/dL Borderline 200 to 239 mg/dL Undesirable >239 mg/dL HDL 36(L) >=50 mg/dL 05/02/2024 6:36 AM EDT [facility] Comment: HDL Cholesterol Reference Ranges (age >17 years): Female, acceptable > or = 50 mg/dL Male, acceptable > or = 40 mg/dL Triglycerides, Plasma 271(H) <150 mg/dL 05/02/2024 6:36 AM EDT [facility] Comment: Triglyceride Reference Range (age >17 years): Desirable: <150 mg/dL Borderline high: 150 to 199 mg/dL High: 200 to 499 mg/dL Very high: >499 mg/dL Increased risk of pancreatitis: >1000 mg/dL Cholesterol/HDL Ratio 7 05/02/2024 6:36 AM EDT [facility] LDL, Calculated 160(H) <100 mg/dL 6:36 AM EDT [facility] Comment: LDL Cholesterol Reference Range (age [...] 12 hours? Unknown 05/02/2024 6:36 AM EDT [facility] Blood Venous blood specimen / Unknown 05/01/2024 11:58 PM EDT 05/02/2024 12:08 AM EDT us Anne Marie PHILLIP LAB BLOOD ORDERABLES Final Result Performing Organization Address City/[facility]/ZIP Co de Phone Number [facility] [address] [place] [address] * Morphology (05/01/2024 11:58 PM EDT) RBC Morphology RBC Morphology Consistent with Indices and RDW LAB HEMATOLOGY METHOD 05/02/2024 2:05 AM EDT [facility] Platelet Estimate Platelet smear estimate consistent with automated count LAB HEMATOLOGY METHOD 05/02/2024 2:05 AM EDT [facility] Blood Venous blood specimen / Unknown Venipuncture / Unknown 05/01/2024 11:58 PM EDT 05/02/2024 12:05 AM EDT Marylu Carvajal APRN, DNP LAB BLOOD ORDERABLES Final Result Performing Organization Address [facility] Co de Phone Number [facility] [address] [place] [address] * (ABNORMAL) Manual Differential (05/01/2024 11:58 PM EDT) Blasts % 0 % LAB HEMATOLOGY METHOD 05/02/2024 2:05 AM EDT [facility] Promyelocytes % 0 % LAB HEMATOLOGY METHOD 05/02/2024 2:05 AM EDT [facility] Myelocytes % 0 % LAB HEMATOLOGY METHOD 05/02/2024 2:05 AM EDT [facility] Metamyelocytes % 0 % LAB HEMATOLOGY METHOD 05/02/2024 2:05 AM EDT [facility] Neutrophils % 52 % LAB HEMATOLOGY METHOD 05/02/2024 2:05 AM EDT [facility] Lymphocytes % 33 % LAB HEMATOLOGY METHOD 05/02/2024 2:05 AM EDT [facility] Reactive Lymphocytes % 0 % LAB HEMATOLOGY METHOD 05/02/2024 2:05 AM EDT [facility] Monocytes % 7 % LAB HEMATOLOGY METHOD 05/02/2024 2:05 AM EDT [facility] Eosinophils % 4 % LAB HEMATOLOGY METHOD 05/02/2024 2:05 AM EDT [facility] Basophils % 4 % LAB HEMATOLOGY METHOD 05/02/2024 2:05 AM EDT [facility] Blasts Absolute 0.00 10*3/UL LAB HEMATOLOGY METHOD 05/02/2024 2:05 AM EDT [facility] Promyelocytes Absolute 0.00 10*3/uL LAB HEMATOLOGY METHOD 05/02/2024 2:05 AM EDT [facility] Myelocytes Absolute 0.00 10*3/uL LAB HEMATOLOGY METHOD 05/02/2024 2:05 AM EDT [facility] Metamyelocytes Absolute 0.00 10*3/uL LAB HEMATOLOGY METHOD 05/02/2024 2:05 AM EDT [facility] Neutrophils Absolute 6.81(H) 1.60 - 6.10 10*3/uL LAB HEMATOLOGY METHOD 05/02/2024 2:05 AM EDT [facility] Lymphocytes Absolute 4.32(H) 1.20 - 3.90 10*3/uL LAB HEMATOLOGY METHOD 05/02/2024 2:05 AM EDT [facility] Reactive Lymphocytes Absolute 0.00 10*3/uL LAB HEMATOLOGY METHOD 05/02/2024 2:05 AM EDT [facility] Monocytes Absolute 0.92(H) 0.30 - 0.90 10*3/uL LAB HEMATOLOGY METHOD 05/02/2024 2:05 AM EDT [facility] Eosinophils Absolute 0.52(H) 0.00 - 0.50 10*3/uL LAB HEMATOLOGY METHOD 05/02/2024 2:05 AM EDT [facility] [facility] Basophils Absolute 0.52(H) 0.00 - 0.10 10*3/uL LAB HEMATOLOGY METHOD 05/02/2024 2:05 AM EDT [facility] Blood Venous blood specimen / Unknown Venipuncture / Unknown 05/01/2024 11:58 PM EDT 05/02/2024 12:05 AM EDT us Marylu Carvajal APRN, DNP LAB BLOOD ORDERABLES Final Result [facility] [address] [place] [address] * Gold Top (05/01/2024 11:58 PM EDT) Extra Hold for add-ons 05/02/2024 3:02 AM EDT [facility] Comment:Auto resulted. Blood Venous blood specimen / Unknown 05/01/2024 11:58 PM EDT 05/02/2024 12:08 AM EDT us Edson Mcclure DO LAB BLOOD ORDERABLES Final R esult Performing Organization Address City/[facility]/ZIP Co de Phone Number [facility] [address] [place] [address] * Lavender Top (05/01/2024 11:58 PM EDT) Extra Hold for add-ons 05/02/2024 3:02 AM EDT [facility] Comment:Auto resulted. Blood Venous blood specimen / Unknown 05/01/2024 11:58 PM EDT 05/02/2024 12:08 AM EDT us Edson Mcclure DO LAB BLOOD ORDERABLES Final R esult [facility] [address] [place] [address] * Light Green Top (05/01/2024 11:58 PM EDT) Extra Hold for add-ons 05/02/2024 3:02 AM EDT [facility] Comment:Auto resulted. Blood Venous blood specimen / Unknown 05/01/2024 11:58 PM EDT 05/02/2024 12:08 AM EDT Edson Mcclure DO LAB BLOOD ORDERABLES Final R esult Performing Organization Address City/[facility]/ZIP Co de Phone Number [facility] [address] [place] [address] * (ABNORMAL) Troponin T, High Sensitivity, 0 Hour Plasma, Reflex to 2 Hour (05/01/2024 11:58 PM EDT) Troponin T, High Sensitivity, 0 Hour 34(H) <14 ng/L 05/02/2024 12:40 AM EDT [facility] Blood Venous blood specimen / Unknown Venipuncture / Unknown 05/01/2024 11:58 PM EDT 05/02/2024 12:05 AM EDT Marylu Carvajal APRN, DNP LAB BLOOD ORDERABLES Final Result Performing Organization Address [facility] Co de Phone Number [facility] [address] [place] [address] * Anti Xa Level by Unfractionated Heparin - Baseline (05/01/2024 11:58 PM EDT) Pathologist [facility] Anti Xa Level Unfractionated Heparin 0.68 <1.00 IU/mL LAB COAGULATION METHOD 05/02/2024 1:05 AM EDT [facility] Blood Venous blood specimen / Unknown Venipuncture / Unknown 05/01/2024 11:58 PM EDT 05/02/2024 12:05 AM EDT Narrative [facility] - 05/02/2024 1:05 AM EDT Therapeutic Range: UFH Full Dose and ACS/AR protocols*: 0.30 - 0.70 IU/mL UFH Low Dose protocol*: 0.25 - 0.50 IU/mL UFH prophylaxis: Not established Marylu Carvajal APRN, DNP LAB BLOOD ORDERABLES Final Result Performing Organization Address City/[facility]/ZIP Co de Phone Number [facility] [address] [place] [address] * N-Terminal Probnp, Plasma (05/01/2024 11:58 PM EDT) N-Terminal, PROBNP, Plasma 339 0 - 899 pg/mL 05/02/2024 12:40 AM EDT [facility] Blood Venous blood specimen / Unknown Venipuncture / Unknown 05/01/2024 11:58 PM EDT 05/02/2024 12:05 AM EDT Marylu Carvajal APRN, JORGE LAB BLOOD ORDERABLES Final Result [facility] [address] [place] [address] * (ABNORMAL) APTT (05/01/2024 11:58 PM EDT) aPTT 79(H) 25 - 35 sec LAB COAGULATION METHOD 05/02/2024 1:05 AM EDT [facility] Blood Venous blood specimen / Unknown Venipuncture / Unknown 05/01/2024 11:58 PM EDT 05/02/2024 12:05 AM EDT Narrative [facility] - 05/02/2024 1:05 AM EDT [facility] Marylu Carvajal APRN, JORGE LAB BLOOD ORDERABLES Final Result Performing Organization Address City/[facility]/[place] [address] * Type and Screen (05/01/2024 11:58 PM [...] TEST ORDERABLES Final Result BLOOD BANK [address] [place] [address], [place] * Ionized calcium, serum (05/01/2024 11:58 PM EDT) Ionized Calcium, Serum 4.6 4.6 - 5.3 mg/dL LAB HEMATOLOGY METHOD 05/02/2024 1:03 AM EDT [facility] Blood Venous blood specimen / Unknown Venipuncture / Unknown 05/01/2024 11:58 PM EDT 05/02/2024 12:07 AM EDT Marylu Carvajal APRN, DNP LAB BLOOD ORDERABLES Final Result [facility] [address] [place] [address] * Phosphorus, Plasma (05/01/2024 11:58 PM EDT) Phosphorus, Plasma 3.6 2.5 - 4.5 mg/dL 05/02/2024 12:40 AM EDT [facility] Blood Venous blood specimen / Unknown Venipuncture / Unknown 05/01/2024 11:58 PM EDT 05/02/2024 12:05 AM EDT Marylu Carvajal APRN, DNP LAB BLOOD ORDERAB[place] [address] * Magnesium, Plasma (05/01/2024 11:58 PM EDT) Magnesium, Plasma 2.3 1.9 - 2.4 mg/dL 05/02/2024 12:40 AM EDT [facility] Blood Venous blood specimen / Unknown Venipuncture / Unknown 05/01/2024 11:58 PM EDT 05/02/2024 12:05 AM EDT Marylu Carvajal ADMISSIONS SUPERVISOR, DNP LAB BLOOD ORDERABLES Final Result [facility] [address] [place] [id number] * Prothrombin Time/INR (05/01/2024 11:58 PM EDT) Prothrombin Time 13.4 12.0 - 14.3 sec LAB COAGULATION METHOD 05/02/2024 12:36 AM EDT [facility] INR 1.0 0.9 - 1.1 LAB COAGULATION METHOD 05/02/2024 12:36 AM EDT [facility] Blood Venous blood specimen / Unknown Venipuncture / Unknown 05/01/2024 11:58 PM EDT 05/02/2024 12:05 AM EDT Narrative [facility] - 05/02/2024 12:36 AM EDT OPTIMAL INR RANGES FOR PATIENT ON ORAL ANTICOAGULANT THERAPY Prevention of venous thromboembolism INR 2.0 to 3.0 In patients with heart disease: Atrial fibrillation INR 2.0 to 3.0 Valvular heart disease INR 2.0 to 3.0 Tissue heart valves INR 2.0 to 3.0 Mechanical prosthetic valves INR 2.5 to 3.5 Prevention of recurrent AR INR 2.5 to 3.5 Marylu Carvajal ADMISSIONS SUPERVISOR, DNP LAB BLOOD ORDERABLES Final Result [facility] [address] [place] [address] * (ABNORMAL) Comprehensive metabolic panel (05/01/2024 11:58 PM EDT) Glucose, Plasma 97 74 - 99 mg/dL 05/02/2024 12:40 AM EDT [facility] BUN, Plasma 9 7 - 21 mg/dL 05/02/2024 12:40 AM EDT [facility] Creatinine, Plasma 0.85 0.60 - 1.10 mg/dL 05/02/2024 12:40 AM EDT [facility] BUN/Creatinine Ratio 11 05/02/2024 12:40 AM EDT [facility] Sodium, Plasma 137 136 - 145 mmol/L 05/02/2024 12:40 AM EDT [facility] Potassium, Plasma 3.6 3.6 - 4.9 mmol/L 05/02/2024 12:40 AM EDT [facility] Chloride, Plasma 104 97 - 107 mmol/L 05/02/2024 12:40 AM EDT [facility] CO2, Plasma 22 22 - 29 mmol/L 05/02/2024 12:40 AM EDT [facility] Anion Gap 11 6 - 16 mmol/L 05/02/2024 12:40 AM EDT [facility] Total Calcium, Plasma 8.5(L) 8.9 - 10.2 mg/dL 05/02/2024 12:40 AM EDT [facility] Total Protein 6.3 6.3 - 7.9 g/dL 05/02/2024 12:40 AM EDT [facility] Albumin, Plasma 3.8 3.5 - 5.2 g/dL 05/02/2024 12:40 AM EDT [facility] AST, Plasma 21 10 - 35 U/L 05/02/2024 12:40 AM EDT [facility] ALT, Plasma 17 10 - 35 U/L 05/02/2024 12:40 AM EDT [facility] Alkaline Phosphatase, Plasma 124(H) 35 - 104 U/L 05/02/2024 12:40 AM EDT [facility] Total Bilirubin, Plasma 0.4 0.2 - 1.1 mg/dL 05/02/2024 12:40 AM EDT [facility] eGFRcr 81.5 mL/min/1.7 3m*2 05/02/2024 12:40 AM EDT [facility] Comment:Reported eGFRcr in m L/min/1.73m2 is based the CKD-EPI 2020 equation that does not use a race coefficient. Blood Venous blood specimen / Unknown Venipuncture / Unknown 05/01/2024 11:58 PM EDT 05/02/2024 12:05 AM EDT Marylu Carvajal ADMISSIONS SUPERVISOR, DNP LAB BLOOD ORDERABLES Final Result [facility] [address] [place] [address] * (ABNORMAL) CBC and Differential (05/01/2024 11:58 PM EDT) [facility] WBC Count 13.10(H) 3.70 - 10.30 10*3/uL LAB HEMATOLOGY METHOD 05/02/2024 2:05 AM EDT [facility] RBC Count 4.15 3.90 - 5.20 10*6/uL LAB HEMATOLOGY METHOD 05/02/2024 2:05 AM EDT [facility] HGB 12.8 11.2 - 15.7 g/dL LAB HEMATOLOGY METHOD 05/02/2024 2:05 AM EDT [facility] HCT 35.9 34.0 - 45.0 % LAB HEMATOLOGY METHOD 05/02/2024 2:05 AM EDT [facility] Platelet Count 374(H) 155 - 369 10*3/uL LAB HEMATOLOGY METHOD 05/02/2024 2:05 AM EDT [facility] MCV 87 79 - 98 fL LAB HEMATOLOGY METHOD 05/02/2024 2:05 AM EDT [facility] MCH 30.8 26.0 - 32.0 pg LAB HEMATOLOGY METHOD 05/02/2024 2:05 AM EDT [facility] MCHC 35.7(H) 30.7 - 35.5 g/dL LAB HEMATOLOGY METHOD 05/02/2024 2:05 AM EDT [facility] RDW 13.4 11.5 - 14.5 % LAB HEMATOLOGY METHOD 05/02/2024 2:05 AM EDT [facility] MPV 9.9 8.8 - 12.5 fL LAB HEMATOLOGY METHOD 05/02/2024 2:05 AM EDT [facility] nRBC 0.0 <=0.0 per 100 WBCs LAB HEMATOLOGY METHOD 05/02/2024 2:05 AM EDT [facility] Differential Type Manual LAB HEMATOLOGY METHOD 05/02/2024 2:05 AM EDT [facility] Blood Venous blood specimen / Unknown Venipuncture / Unknown 05/01/2024 11:58 PM EDT 05/02/2024 12:05 AM EDT Narrative [facility] - 05/02/2024 2:05 AM EDT Therapeutic [...] no longer being reported. Marylu Carvajal APRN, JORGE LAB BLOOD ORDERABLES Final Result [facility] [address] [place] [address] * (ABNORMAL) Platelet P2Y12 Receptor Blockade, Verify Now PRU (05/01/2024 11:58 PM EDT) P2Y12 PRU 56(L) 194 - 418 PRU 05/02/2024 12:24 AM EDT [facility] Blood Venous blood specimen / Unknown Venipuncture / Unknown 05/01/2024 11:58 PM EDT 05/02/2024 12:11 AM EDT Narrative [facility] - 05/02/2024 12:24 AM EDT P2Y12 [...] to the clinician. Testing performed in the [facility] for Special Coagulation. Marylu Carvajal APRN, DNP LAB BLOOD ORDERABLES Final Result Performing Organization Address City/[facility]/ZIP Co de Phone Number [facility] [address] [place] [address] * Fibrinogen, Quantitative (Clottable) (05/01/2024 11:58 PM EDT) Fibrinogen, Quantitative (Clottable) 291 208 - 459 mg/dL LAB COAGULATION METHOD 05/02/2024 1:05 AM EDT [facility] Blood Venous blood specimen / Unknown Venipuncture / Unknown 05/01/2024 11:58 PM EDT 05/02/2024 12:05 AM EDT Marylu Carvajal APRN, DNP LAB BLOOD ORDERABLES Final Result Performing Organization Address [facility] Co de Phone Number [facility] [address] [place] [address] * ECG Adult (05/01/2024 11:25 PM EDT) EKG DIAGNOSIS CLASS Abnormal MUSE ECG Ventricular Rate 71 BPM MUSE ECG Atrial Rate 71 BPM MUSE ECG LA Interval 156 ms MUSE ECG QRSD Interval 70 ms MUSE ECG QT Interval 478 ms MUSE ECG QTC Interval 519 ms MUSE ECG P [place] 78 degrees MUSE ECG R [place] 45 degrees MUSE ECG T Wave [place] 43 degrees MUSE ECG Diagnosis Normal sinus rhythm MUSE ECG Diagnosis Nonspecific ST and T wave abnormality MUSE ECG Diagnosis Prolonged QT MUSE ECG Diagnosis Abnormal ECG MUSE ECG Diagnosis MUSE ECG Diagnosis Confirmed by Graham Singleton ([id number]) on 05/02/2024 5:27:14 AM MUSE ECG 05/01/2024 11:2 5 PM EDT 05/02/2024 5:27 AM EDT Marylu Carvajal APRN, DNP ECG ORDERABLES Namrata l Result Performing Organization Address City/[facility]/ZIP Co de Phone Number MUSE ECG [...] MD on 05/01/2024 11:31 PM Marylu Carvajal ADMISSIONS SUPERVISOR, DNP IMG XR PROCEDURES Fi nal Result [...] 650 mg, Intravenous, Once, 1 dose, On Emily 05/17/24 at 1600, Routine New Bag 05/17/2024 5:13 [...] scheduled, First dose (after last modification) on [place] 06/17/24 at 0745, Until Discontinued, Routine Given 06/21/2024 1:02 PM EDT 1,000 mg Given 06/21/2024 1:02 AM EDT 1,000 mg Given 06/20/2024 5:58 PM EDT 1,000 mg acetaminophen (Tylenol) tablet 500 mg 500 mg, Oral, Every 6 hours scheduled, First dose on [place] 05/27/24 at 1230, Until Discontinued, Routine Given 06/14/2024 5:00 AM EDT 500 mg Given 06/13/2024 11:35 PM EDT 500 mg Given 06/13/2024 5:45 PM EDT 500 mg acetaminophen (Tylenol) tablet 500 mg 500 mg, Oral, Every 6 hours PRN, Starting on Emily 06/14/24 at 0830, Until [place] 06/17/24 at 0656, Routine, mild pain Given 06/17/2024 [...] Intravenous, Every 15 min PRN, Starting on Emily 05/17/24 at 1854, Until Tue05/21/24 at 0925, Routine, [...] 20 mg, Intravenous, Once, 1 dose, On Tue05/26/24 at 0000, Routine Given 05/25/2024 11:23 PM [...] 2.5 mg heparin (porcine) - COM Adult ACS/AR Protocol - MAR Re-bolus Calculator injection 0-3,700 [...] units/250 mL (100 unit/mL) infusion - Adult ACS/AR Protocol 0-35 Units/kg/hr 61.1 kg (0-21.385 mL/hr, [...] at 1213, Until Tue06/14/24 at 0824, Routine, moderate pain, refractory to [...] g, Intravenous, Once, 1 dose, On Emily 05/24/24 at 0030, at 25 mL/hr, Administer over [...] g, Intravenous, Once, 1 dose, On Emily 06/14/24 at 0500, at 25 mL/hr, Administer over [...] 8 hours, 6 doses, First dose on Tue05/26/24 at 1515, Last dose on Tue05/28/24 at [...] Oral, 4 times daily, First dose on Tue05/08/24 at 1400, Until Discontinued, Routine, Recovery(Phase II-Outpatient)/On [...] 5 mg, Intravenous, Once, 1 dose, On Tue05/12/24 at 1615, Routine Given 05/12/2024 4:10 PM [...] daily, First dose (after last modification) on [facility] 05/10/24 at 2100, Until Discontinued, Routine, Recovery(Phase [...] needed, Starting on Tue06/07/24 at 1645, Until Tue06/21/24 at 1741, Routine, dry mouth Given 06/07/2024 5:59 PM EDT 15 mL morphine PF 4 mg 4 mg, Intravenous, Every 30 min PRN, Starting on Tue05/06/24 at 204, Until Tue05/06/24 at 2144, Routine, Recovery(Phase II-Outpatient)/On Unit(Inpatient), pain scale 7-10 [...] EDT 0.6 mcg/kg/min 11 mL/hr nystatin (Mycostatin) 029873 UNIT/ML suspension 400,000 Units 400,000 Units (4 mL), Swish & Swallow, 4 times daily, 23 doses, First dose (after last modification) on Tue05/14/24 at 1400, Last dose on Tue05/19/24 at 2200, Routine Given 05/18/2024 1:00 PM EDT 400,000 Units Given 05/18/2024 8:43 AM EDT 400,000 Units Given 05/17/2024 9:00 PM EDT 400,000 Units nystatin (Mycostatin) [id number] UNIT/ML suspension 500,000 Units 500,000 Units (5 [...] Intravenous, Every 6 hours PRN, Starting on Tue05/06/24 at 2040, Until Tue05/09/24 at 1103, Routine, [...] daily, First dose (after last modification) on [place] 05/20/24 at 0900, Until Discontinued, Routine Given 05/27/2024 10:00 AM EDT 40 mg Given 05/26/2024 8:20 PM EDT 40 mg Given 05/26/2024 8:54 AM EDT 40 mg phenol (Chloraseptic) 1.4 % mouth/throat spray 1 spray 1 spray, Mouth/Throat, Every 2 hour PRN, sore throat, Instruct patient to spit out after 15 seconds., Starting on [facility] 05/17/24 at 1628 Given 05/18/2024 12:48 PM EDT 1 spray piperacillin-tazobactam (Zosyn) 4.5 g in sodium chloride 0.9% 100 mL IVPB (vial adapter required) 4.5 g, Intravenous, Every 6 hours, 42 doses, First dose on [facility] 05/17/24 at 1530, Last dose on Tue05/27/24 at [...] on Tue06/14/24 at 1100, Until Discontinued, Routine Given 06/21/2024 [...] PRN, Starting on 06/09/24 at 1310, Until Tue06/17/24 at 0659, Routine, nausea, vomiting Given 06/14/2024 [...] 8:36 PM EDT 80 mg sodium chloride (Chelan) 0.65 % nasal spray 1 spray 1 [...] PRN, Starting on Tue05/19/24 at 0120, Until 06/11/24 at 0645, Routine, Flush Before and After [...] 12 hours, 2 doses, First dose on 05/19/24 at 2100, Last dose on 05/20/24 at 0900, Routine Given 05/20/2024 9:22 AM [...] Patient/family refused) 0537 (Given - Provider: Brunilda Dawson, KRISTINA)1305 (Not Given - Provider: Aleshia Curiel RN - Reason: Patient/family refused)1758 (Given - Provider: Aleshia Curiel RN) 0102 (Given - Provider: Corinne Fuentes, KRISTINA - Comment: per pt request)0555 (Not Given [...] Discontinued, Routine 09 (Given - Provider: Ashwin Oodm RN) 0820 (Given - Provider: Aleshia Curiel [...] Emily 06/14/24 at 0900, Until Discontinued, Routine 0906 (Given - Provider: Ashwin Odom, KRISTINA)2000 (Given [...] Dawson RN)1759 (Medication Applied - Provider: Aleshia Curiel, KRISTINA) 0547 (Medication Removed - Provider: Corinne Fuentes, [...] Ashwin Odom RN)2114 (Given - Provider: Brunilda Dawson, KRISTINA) 0819 (Given - Provider: Aleshia Curiel, KRISTINA)1306 (Not Given - Provider: Aleshia Curiel RN - Reason: Patient/family refused)175 (Given - Provider: Aleshia Curiel RN)215 (Given - Provider: Corinne Fuentes, KRISTINA) 1022 (Given - Provider: Amy Sultana RN - Comment: pt sleeping, wanted to wait)130 (Given - Provider: Zander Villeda RN) metoprolol tartrate (Lopressor) tablet 25 mg 25 mg, Oral, 2 times daily, First dose on Tue05/27/24 at 2100, Until Discontinued, Routine 09 (Given - Provider: Ashwin Odom RN)2000 (Given - Provider: Brunilda Dawson RN) 08 (Given - Provider: Aleshia Curiel RN)204 (Given [...] on Tue05/31/24 at 0900, Until Discontinued, Routine 09 (Given - Provider: Ashwin Odom RN) 0820 (Given - Provider: Aleshia Curiel RN) 1022 (Given - Provider: Amy Sultana RN - Comment: pt sleeping, wanted to wait) polyethylene glycol (Miralax) packet 17 g 17 g, Oral, Daily, First dose on Tue06/14/24 at 1100, Until Discontinued, Routine 09 (Given - Provider: Ashwin Odom RN) 0827 (Not Given - Provider: Aleshia Curiel RN - Reason: Patient/family refused) 1023 (Given - Provider: Amy Sultana RN - Comment: pt sleeping, wanted to wait) potassium chloride (Klor-Con) packet 20 mEq (COMPLETED)(Linked Group 2) 20 mEq, Oral, Once, 1 dose, On Tue06/19/24 at 1945, Routine 1958 (Given - Provider: Brunilda Dawson RN) potassium chloride (Klor-Con) packet 40 mEq (COMPLETED)(Linked Group 2) 40 mEq, Oral, Once, 1 dose, On Tue06/19/24 at 1830, Routine 1820 (Given - Provider: Ashwin Odom, KRISTINA) primidone (Mysoline) tablet 50 mg 50 mg, Oral, 2 times daily, First dose on Tue05/27/24 at 1245, Until Discontinued, Routine 09 (Given - Provider: Ashwin Odom, KRISTINA)2000 (Given - Provider: Brunilda Dawson RN) 08 (Given - Provider: Aleshia Curiel RN)2044 (Given - Provider: Corinne Fuentes, KRISTINA) 1022 [...] Discontinued, Routine 1758 (Given - Provider: Aleshia Curiel RN)2158 (Given - Provider: Corinne Fuentes, KRISTINA) 1022 (Given - Provider: Amy Sultana, RN - Comment: pt sleeping, wanted to wait)1302 (Given - Provider: Zander Villeda, KRISTINA) sodium chloride 0.9 % flush 10 mL 10 mL, Intravenous, Every 12 hours, First dose on Tue05/19/24 at 0215, Until Discontinued, Routine 0122 (Canceled Entry - Provider: Julian Jimenez)1438 (Given - Provider: Ashwin Odom RN) 0216 (Given - Provider: Brunilda Dawson RN)1400 (Given - Provider: Aleshia Curiel, KRISTINA) 251 (Given - Provider: Corinne Fuentes, KRISTINA)133 (Given - Provider: Amy Sultana, RN) traMADol (Ultram) tablet 50 mg (COMPLETED) 50 mg, Oral, Once, 1 dose, On Tue06/20/24 at 0515, Routine 0429 (Given - Provider: Millie Michael RN) PRN Medication Order 06/19/2024 06/20/2024 06/21/2024 benzocaine-menthol (Chloraseptic) 6-10 MG lozenge 1 lozenge 1 lozenge, Mouth/Throat, Every 4 hours PRN, Starting on Tue05/14/24 at 2012, Until Emily 06/21/24 at 1741, Routine, sore throat bisacodyl (Dulcolax) EC tablet 10 mg 10 mg, Oral, Daily PRN, Starting on Tue06/14/24 at 0729, Until Tue06/21/24 at 1741, Routine, constipation calcium carbonate (Tums) chewable tablet 500 mg 500 mg, Oral, 4 times daily PRN, Starting on Tue05/31/24 at 1019, Until Emily 06/21/24 at 1741, Routine, indigestion, heartburn hydrOXYzine pamoate (Vistaril) capsule 25 mg 25 mg, Oral, Every 6 hours PRN, Starting on Tue06/03/24 at 1021, Until Emily 06/21/24 at 1741, Routine, anxiety 1137 (Given - Provider: Ashwin Odom RN)1957 (Given - Provider: Brunilda Dawson, KRISTINA) 2033 (Not Given - Provider: Corinne Fuentes, KRISTINA - Reason: Patient/family refused) 133 (Given - Provider: Amy Sultana, RN) ipratropium-albuterol [...] changes only 1038 (Given - Provider: Aleshia Curiel RN) oxyCODONE (Roxicodone) immediate release tablet 5 [...] Ashwin Odom RN)2243 (Given - Provider: Brunilda Dawson, KRISTINA) sodium chloride (Chelan) 0.65 % nasal spray 1 spray 1 spray, Each Nostril, As needed, Starting on Tue06/01/24 at 2206, Until Tue06/21/24 at 1741, Routine, congestion traZODone (Desyrel) tablet 50 mg 50 mg, Oral, Nightly PRN, Starting on Tue06/17/24 at 2016, Until Tue06/21/24 at 1741, Routine, sleep 1958 (Given - Provider: Brunilda Dawson RN) 2034 (Not Given - Provider: Corinne Fuentes RN - Reason: Patient/family refused)2155 (Given - Provider: Corinne Fuentes RN) Linked [...] documented as of this encounter Care Teams Is Support Analyst Relationship Specialty Start Date End Date Pcp, Katherine [address] [place] [address] PCP - General Family Medicine 04/04/24 06/28/24 documented as of this encounter
--- OUTSIDE RECORDS SUMMARY | 2024-06-29 14:30 | XMS_ITS | Encounter Summary ---
Author Organization Healthcare Address [address] [place] [address] Care Team Providers Care [address] Attendant Name Role Phone Champ Quiroz MD Primary Care Provider + [phone] Reason for Visit * Reason Comments Follow-up Staple removal Encounter Details Date Type Department Care Team (Late st Contact Info) Description 06/29/2024 2:30 PM EDT Office Visit [place] [facility] [address] [place] [address] Lidia Troncoso MD [address] [place] [address] Social History Tobacco Use Types [...] any time in the past 12 m [facility], were you homeless or living in a correction (including now)? No 05/02/2024 Utilities Answer Date [...] Description 10/30/2024 10:45 AM EDT Office Visit [place] [facility] [address], [address] [place] [address] Lidia Troncoso MD [address] [place] [address] documented as of this encounter [...] documented as of this encounter Care Teams Lane Attendant Relationship Specialty Start Date End Date Champ Quiroz MD [address] [place] [address] PCP - General Internal Medicine 06/29/24 documented as of this encounter
--- OUTSIDE RECORDS SUMMARY | 2024-07-18 09:52 | XMS_ITS | Encounter Summary ---
Author Organization Healthcare Address [address] [place] [address] Care Team Providers Care Fabrication And Layout Craftsman Name Role Phone Champ Quiroz MD Primary Care Provider [phone] Encounter Details Date Type Department Care Team (Latest Contact Info) Description 07/18/2024 9:52 AM EDT - 07/18/2024 11:59 PM EDT [facility] [address], [address] [place] [address] CAD, multiple vessel Discharge Disposition: Home or [...] any time in the past 12 m [facility], were you homeless or living in a fdc (including now)? No 05/02/2024 AUDIT-C Answer Date [...] times a day. 60 tablet 2 06/21/2024 primidone (Mysoline) 50 MG tablet Take 1 tablet (50 mg) by mouth every 12 (twelve) hours. rosuvastatin (Crestor) 40 MG tablet Take 1 tablet by mouth nightly. 30 tablet 2 06/21/2024 6 simethicone (Mylicon) 80 MG chewable tablet Chew 1.5 tablets 4 times a day. 30 tablet 06/21/2024 aspirin 81 MG chewable tablet Chew 1 tablet daily. 30 tablet 2 07/18/2024 6 metoprolol tartrate (Lopressor) 25 MG tablet Take 1.5 tablets by mouth 2 times a day. 90 tablet 1 07/18/2024 naloxone (Narcan) 4 mg/0.1 mL nasal spray 1. Give 1 spray in nostril for no/slow breathing or cannot wake after opioid use 2. Call 911 3. Repeat in other nostril if symptoms continue 1 each 06/21/2024 potassium chloride CR (Klor-Con M20) 20 MEQ ER tablet Take 2 tablets by mouth daily. Do not crush or chew. 60 tablet 07/18/2024 documented as of this encounter Plan of Treatment Upcoming Encounters Date Type Department Care Team (Late st Contact Info) Description 10/30/2024 10:45 AM EDT Office Visit [facility] General Surgery [address], [address] [place] [address] Lidia Troncoso MD [address] [place] [address] documented as of this encounter [...] documented as of this encounter Care Teams Fabrication And Layout Craftsman Relationship Specialty Start Date End Date Champ Quiroz MD [address] [place] [address] PCP - General Internal Medicine 06/29/24 documented as of this encounter
--- OUTSIDE RECORDS SUMMARY | 2024-07-18 11:00 | XMS_ITS | Encounter Summary ---
Author Organization Healthcare Address [address] [place] [address] Care Team Providers Care Sample Clerk Name Role Phone Champ Quiroz MD Primary Care Provider [phone] Reason for Referral * Consultation (Routine) - Authorized Specialty Diagnoses / Procedures Referred By Contac t Referred To Contact Gynecology Diagnoses CAD, multiple vessel Tobacco use Anxiety and depression Chronic obstructive pulmonary disease, unspecified COPD type ([facility]) NSTEMI (non-ST elevated myocardial infarction) ([facility]) THOM (obstructive sleep apnea) S/P CABG x 4 Post-op pain Maite Austin MD [address] [address] Phone: tel: fax: Referral ID Status Reason Start Date Expiration Date Visits Requested Visits Authorized [id number] Authorized Specialty Services Required 07/18/2024 01/17/2026 1 1 Encounter Details Date Type Department Care Team (Late st Contact Info) Description 07/18/2024 11:00 AM EDT Office Visit [facility] [address], [address] [address] Maite Austin MD [address] [address] CAD, multiple vessel (Primary Dx); Tobacco use; Anxiety and depression; Chronic obstructive pulmonary disease, unspecified COPD type ([facility]); NSTEMI (non-ST elevated myocardial infarction) ([facility]); THOM (obstructive sleep apnea); S/P CABG [...] time in the past 12 m [facility], were you homeless or living in a detention (including now)? No 05/02/2024 AUDIT-C Answer Date [...] Recorded In the past 12 months has [employer], gas, oil, or water [employer] threatened to shut off services in your [...] rate daily at home Follow up with [employer] managed service sales exec (Dr. Bentley) and PCP Follow up with general surgery Recommend cardiac rehab Referral to gynecology for vaginal soreness Continue sternal precautions until 3 months from surgery Follow up as needed with CT surgery [1] Patient Active Problem List Diagnosis Anxiety and depression COPD (chronic obstructive pulmonary disease) ([facility]) Tobacco use CAD, multiple vessel NSTEMI (non-ST elevated myocardial infarction) ([facility]/HCC) GERD (gastroesophageal reflux disease) Leukocytosis Essential tremor Thrombocytosis Hypocalcemia Hyperlipidemia THOM (obstructive sleep apnea) S/P CABG x 4 Hypertension Post-op pain Hyponatremia Hypomagnesemia Transaminitis Sinus tachycardia Incomplete RBBB Tremor Hypertriglyceridemia Hypoalphalipoproteinemia S/P colostomy (CMS/[facility]) S/P colon resection BMI 22.0-22.9, adult [2] Past Medical History: Diagnosis Date Anxiety COPD (chronic obstructive pulmonary disease) ([facility]) 05/01/2024 Continue Duo nebs q6 SPO2 goal >88% Depression GERD (gastroesophageal reflux disease) 05/01/2024 Continue Protonix 40 mg daily Hyperkalemia 05/06/2024 Now resolved, pt with hypokalemia requiring replacement On mechanically assisted ventilation ([facility]) 05/06/2024 Arrived to ICU intubated 05/07 extubated to [facility] 05/08 resolved Tobacco use 05/01/2024 Civil Designer for smoking 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 Complicates all [...] Description 10/30/2024 10:45 AM EDT Office Visit [facility] General Surgery [address], [address] [place] [address] Lidia Troncoso MD [address] [place] [address] Scheduled Referrals Name Type Priority Associated Diagnoses Orde r Schedule Ambulatory referral to Gynecology Outpatient Referral Routine CAD, multiple vessel Tobacco use Anxiety and depression Chronic obstructive pulmonary disease, unspecified COPD type (CMS/HCC) NSTEMI (non-ST elevated myocardial infarction) (CMS/[facility]) THOM (obstructive sleep apnea) S/P CABG [...] ECG Atrial Rate 109 BPM MUSE ECG GA Interval 120 ms MUSE ECG QRSD Interval 70 ms MUSE ECG QT Interval 394 ms MUSE ECG QTC Interval 530 ms MUSE ECG P [place] 77 degrees MUSE ECG R [place] 79 degrees MUSE ECG T Wave [place] 100 degrees MUSE ECG Diagnosis Sinus tachycardia MUSE ECG Diagnosis Nonspecific ST and T wave abnormality MUSE ECG Diagnosis MUSE ECG Diagnosis MUSE ECG Diagnosis MUSE ECG Diagnosis Confirmed by Yahaira Gomez ([id number]) on 07/18/2024 9:29:04 PM MUSE ECG 07/18/2024 11:2 2 AM EDT 07/18/2024 9:29 PM EDT us Maite Austin MD ECG ORDERABLES Final Result Performing Organization Address [facility]/ZIP Co de Phone Number MUSE ECG * (ABNORMAL) Basic Metabolic Panel, Plasma (07/18/2024 10:14 AM EDT) Glucose, Plasma 126(H) 74 - 99 mg/dL 07/18/2024 12:13 PM EDT [facility] BUN, Plasma 5(L) 7 - 21 mg/dL 07/18/2024 12:13 PM EDT [facility] Creatinine, Plasma 0.54(L) 0.60 - 1.10 mg/dL 07/18/2024 12:13 PM EDT [facility] BUN/Creatinine Ratio 9 07/18/2024 12:13 PM EDT [facility] Sodium, Plasma 137 136 - 145 mmol/L 07/18/2024 12:13 PM EDT [facility] Potassium, Plasma 2.5(LL) 3.6 - 4.9 mmol/L 07/18/2024 12:13 PM EDT [facility] Chloride, Plasma 95(L) 97 - 107 mmol/L 07/18/2024 12:13 PM EDT [facility] CO2, Plasma 29 22 - 29 mmol/L 07/18/2024 12:13 PM EDT [facility] Anion Gap 13 6 - 16 mmol/L 07/18/2024 12:13 PM EDT [facility] Total Calcium, Plasma 8.2(L) 8.9 - 10.2 mg/dL 07/18/2024 12:13 PM EDT [facility] eGFRcr 109.6 mL/min/1.7 3m*2 07/18/2024 12:13 PM EDT [facility] Comment:Reported eGFRcr in m L/min/1.73m2 is based the CKD-EPI 2020 equation that does not use a race coefficient. Blood Venous blood specimen / Unknown Venipuncture / Unknown 07/18/2024 10:14 AM EDT 07/18/2024 10:14 AM EDT us Maite Austin MD LAB BLOOD ORDERABLES Final Resu lt [facility] [address] [place] [address] * (ABNORMAL) CBC W/O Differential (07/18/2024 10:14 AM EDT) WBC Count 13.01(H) 3.70 - 10.30 10*3/uL LAB HEMATOLOGY METHOD 07/18/2024 11:08 AM EDT [facility] RBC Count 3.97 3.90 - 5.20 10*6/uL LAB HEMATOLOGY METHOD 07/18/2024 11:08 AM EDT [facility] HGB 11.5 11.2 - 15.7 g/dL LAB HEMATOLOGY METHOD 07/18/2024 11:08 AM EDT [facility] HCT 35.5 34.0 - 45.0 % LAB HEMATOLOGY METHOD 07/18/2024 11:08 AM EDT [facility] Platelet Count 582(H) 155 - 369 10*3/uL LAB HEMATOLOGY METHOD 07/18/2024 11:08 AM EDT [facility] MCV 89 79 - 98 fL LAB HEMATOLOGY METHOD 07/18/2024 11:08 AM EDT [facility] MCH 29.0 26.0 - 32.0 pg LAB HEMATOLOGY METHOD 07/18/2024 11:08 AM EDT [facility] MCHC 32.4 30.7 - 35.5 g/dL LAB HEMATOLOGY METHOD 07/18/2024 11:08 AM EDT [facility] RDW 14.9(H) 11.5 - 14.5 % LAB HEMATOLOGY METHOD 07/18/2024 11:08 AM EDT [facility] MPV 9.1 8.8 - 12.5 fL LAB HEMATOLOGY METHOD 07/18/2024 11:08 AM EDT [facility] nRBC 0.0 <=0.0 per 100 WBCs LAB HEMATOLOGY METHOD 07/18/2024 11:08 AM EDT [facility] Blood Venous blood specimen / Unknown Venipuncture / Unknown 07/18/2024 10:14 AM EDT 07/18/2024 10:14 AM EDT us Maite Austin MD LAB BLOOD ORDERABLES Final Resu lt [facility] [address] [place] [address] * XR Chest 2 Views (07/18/2024 9:58 [...] documented as of this encounter Care Teams Sample Clerk Relationship Specialty Start Date End Date Champ Quiroz MD [address] [place] [address] PCP - General Internal Medicine 06/29/24 documented as of this encounter
--- OUTSIDE RECORDS SUMMARY | 2024-07-20 09:59 | XMS_ITS ---
Author Organization [facility] Address [address] [place] [address] Care Team Providers Care Contact Assembler Name Role Phone Dianeangelique Michaelle Primary Care Provider Champ Quiroz [phone] Encounters Encounter Location Date Provider Diagnosis [facility] [address] [place] [address] 07/20/2024 Michaelle Rivas Hypokalemia E87.6 Assessments Encounter Date Diagnosis (ICD Code) Assessment Notes Treatment Notes Treatment Clinical Notes Section Notes 07/20/2024 Hypokalemia (ICD-10 - E87.6) Plan Of Treatment Future Test Test Name Order Date BASIC METABOLIC PANEL ([id number]) 07/23/2024 MAGNESIUM (622) 07/23/2024 Next Appt Details Provider Name:Champ Quiroz, 08/20/2024 03:15:00 PM, [address], [address], [place], [address], Progress Notes * Rere REESE ADOB: [birth year] (53 yo F)Acc No.[id number]:07/20/2024 Patient: Rere DICKSON :1970 A ge:53 Y S ex:Female Address:[address] [place] [address] [place] [address] Subjective: * Chief Complaints: * * Medical History: * Surgical History: * Hospitalization/Major Diagno stic Procedure: * Medications: Objective: * Vitals: * Physical Examination: Assessment: * Assessment: 1. H ypokalemia - E87.6 (Primary) Plan: * Treatment: * Procedure Codes: * true * Date: Generated for Little catalan/Fior/Jericho on: 0 08/07/2024 11:21 AM EDT
--- OUTSIDE RECORDS SUMMARY | 2024-07-30 07:00 | XMS_ITS ---
Author Organization [facility] Address [address] [facility] [address] [facility] [address] [place] [address] Care Team Providers Care Break Off Worker Name Role Phone Michaelle Rivas Primary Care Provider [phone] Champ Quiroz [phone] REASON FOR VISIT [facility] D/C 07/24/2024 Encounters Encounter Location Date Provider Diagnosis [place] [facility] [address] [place] [address] [facility] [address] [place] [address] 07/30/2024 Champ Quiroz Plan Of Treatment Next Appt Details Provider Name:Champ Quiroz, 08/20/2024 03:15:00 PM, [address] [facility] [address] [facility], [address], [place], [address], Progress Notes * Rere REESE ADOB: [birth year] (53 yo F)Acc No.[id number]:07/30/2024 HOSP F/U Patient: Dayana Rere CASIANO Provider: Dayana Quiroz MD :1970 A ge:53 Y S ex:Female Date:07/30/2024 Address:[address] [place] [address] [id number] Pcp:Michaelle Rivas Subjective: * Chief Complaints: * 1 . [facility] D/C 07/24/2024. * Medical History: Objective: * Vitals: Assessment: Plan: * Treatment: * * Electronic signature of Step jenniffer Quiroz MD FAAP on 08/07/2024 at 10:34 AM EDT Sign off status: Pending * Provider: Dayana Quiroz MD Date: 0 07/30/2024 Generated for Little catalan/Fior/Jericho on: 0 08/07/2024 10:34 AM EDT
--- OUTSIDE RECORDS SUMMARY | 2024-07-30 12:15 | XMS_ITS ---
Author Organization [facility] Address [address] [place] [address] Care Team Providers Care Corporate Recycling Manager Name Role Phone Michaelle Rivas Primary Care Provider Champ Quiroz Unavailable [phone] Allergies Allergen (clinical drug ingredient) Drug/Non Drug Allergy documented on EMR Reaction Allergy Type Onset Date Status LATEX GLOVES (uncoded) Unknown Allergy Active acetaminophen / oxycodone Percocet stomach upset, sweating Drug Allergy Active REASON FOR VISIT [facility] D/C 07/24/2024 Medications Medication SIG (Take, Route, Frequency, Duration) Notes Start Date End Date Status Rosuvastatin Calcium 40 MG 1 tablet Oral ly Once a day for 30 days Active hydrOXYzine HCl 10 MG 1 tab orally every 8 hours for 30 days Active Pyridium 200 MG 1 tablet after meals Orally Three times a day for 2 days 07/02/2024 Active buPROPion HCl ER (XL) 300 MG 1 tab(s) or ally every 24 hours for 30 days 04/20/2024 Active Citalopram Hydrobromide 40 MG 1 tab(s) orally once a day for 90 days Active Aspirin 81 81 MG 1 tablet Orally Once a day Active Flonase Allergy Relief 50 MCG/ACT 1 spray in each nostril Nasally Twice a day Active Combivent Respimat 20-100 MCG/ACT INHALE 1 PUFF BY MOUTH 4 TIMES DAILY for 30 days prn Active Primidone 50 MG 1 tab(s) orally twic e a day for 90 days Active Acetaminophen 500 MG 2 tablet as needed Orally every 6 hrs Active Loratadine 10 MG 1 tablet Orally Once a day Active Metoprolol Tartrate 25 MG 1 tablet Orall y Twice a day Active traZODone HCl 50 MG 1 tablet at bedtime as needed Orally Once a day for 30 days 07/30/2024 Active Simethicone 80 MG 1 tablet after meals and at bedtime as needed Orally Four times a day Active Social History Tobacco Use: [...] Problem Status W/U Status Risk Notes Problem 9693776 Primary insomnia (F51.01) Active confirmed Problem [id number] Colostomy status (Z93.3) Active confirmed Vital Signs Temperature 97.5 degrees Fahrenheit 07/31/19 25 Heart Rate 100 /min 07/30/2024 Blood pressure systolic 150 mm Hg 07/31/19 25 Blood pressure diastolic 90 mm Hg 025 Height 5 ft 1 in in 07/30/2024 Weight 116.4 lbs 07/30/2024 BMI 21.99 kg/m2 07/30/2024 Encounters Encounter Location Date Provider Diagnosis [facility] [place] [address] [facility] [address] [place] [address] 07/30/2024 Champ Quiroz C. difficile colitis A04.72 ; Primary insomnia F51.01 ; Colostomy status Z93.3 and Hospital discharge follow-up Z09 Assessments Encounter Date Diagnosis (ICD Code) Assessment Notes Treatment Notes Treatment Clinical Notes Section Notes 07/30/2024 C. difficile colitis (ICD-10 - A04.72) Has finished up vancomycin from hospital discharge. Hard to tell if diarrhea is better because of colostomy status but has no pain, fever or abdominal swelling 07/30/2024 Primary insomnia (ICD-10 - F51.01) Trazodone low-dose for insomnia issues. Wellbutrin and citalopram have been helping with anxiety during the day. 07/30/2024 Colostomy status (ICD-10 - Z93.3) Discussed that she would be a good candidate for reversal, they are meant to be some imaging done to make sure that her intestinal status is viable 07/30/2024 Hospital discharge follow-up (ICD-10 - Z09) Personally reviewed H&P and discharge summary as available from hospital discharge documentation. Reviewed pertinent labs and test done in the hospital. Personally reconciled medication. Plan Of Treatment Medication Medication Name Sig Start Date Stop Date Notes traZODone HCl 50 MG 1 tablet at bedtime as needed Orally Once a day for 30 days 07/30/2024 Treatment Notes Assessment Notes C. difficile colitis Has finished up vancomycin from hospital discharge. Hard to tell if diarrhea is better because of colostomy status but has no pain, fever or abdominal swelling Primary insomnia Trazodone low-dose for insomnia issues. Wellbutrin and citalopram have been helping with anxiety during the day. Colostomy status Discussed that she w ould be a good candidate for reversal, they are meant to be some imaging done to make sure that her intestinal status is viable Hospital discharge follow-up Personally reviewed H&P and discharge summary as available from hospital discharge documentation. Reviewed pertinent labs and test done in the hospital. Personally reconciled medication. Next Appt Details Follow Up: prn, Reason: Provider Name:Champ Quiroz, 08/20/2024 03:15:00 PM, [address] [facility] [address] [facility], [address], [place], [address], Progress Notes * Rere REESE ADOB: [birth year] (53 yo F)Acc No.[id number]:07/30/2024 HOSP F/U Patient: Rere DICKSON Lois Provider: Dayana Quiroz MD :1970 A ge:53 Y S ex:Female Date:07/30/2024 Address:[address] [place] [address] [id number] Pcp:Michaelle Rivas Subjective: * Chief Complaints: * 1 . [facility] D/C 07/24/2024. * HPI: I ntrim History: Transition of care visit from hospital D ate of admission to hospital: 0 07/21/2024, D ate of receipt of hospital admission report: 0 07/23/2024,?Date of discharge from hospital: 0 07/24/2024, D ate of receipt of hospital discharge summary: 0 07/25/2024, D ischarge medications reviewed and reconciled from hospital: M edications left unchanged. Patient here for posthospital visit from above dates. Admitted to [facility] on 07/21/2024 with possible pouchitis -initially treated with IV antibiotics but found to have C. difficile and transitioned over to vancomycin. Diarrhea improved and she was discharged home with pbetty Prescott and follow-up with our office. No evidence of pouchitis was found on further imaging and [facility] GI did not think patient needed further intervention from her colostomy status recently at . * Medical History: H ormone replacement therapy, Depression, Copd, Asthma, Smoker, Tremors, Coronary artery disease, status post CABG May 08 at [facility], Sepsis, bowel ischemia and colostomy April/2024 at [facility]. * Surgical History: l t rotator cuff 2020, rt hand surgery 01/2023, colon resection 04/30/24. * Hospitalization/Major Diagno stic Procedure: H MH 01/2022, - heart attach 04/30/2024-06/28/24, Septic 07/24/2024. * Family History: F ather: , Cholesterol [...] active: no. Travel outside [place]: no. 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 * Medications: T aking Simethicone 80 MG Tablet Chewable 1 tablet after meals and at bedtime as needed Orally Four times a day , Taking Metoprolol Tartrate 25 [...] 1 tab orally every 8 hours , Taking Rosuvastatin Calcium 40 MG Tablet 1 tablet Orally Once a day , Medication List reviewed and reconciled with the patient * Allergies: L ATEX GLOVES, Percocet: stomach upset, sweating - Side Effects. Objective: * Vitals: N urse: KJ, Pain: 6 vaginal area, Temp: 97.5, RR: 18, HR: 100, BP: 150/90, Ht: 5 ft 1 in, Wt: 116.4, BMI:21.99. * Examination: G eneral Examination: General P leasant and Cooperative, NAD on RA,. Chest: C ABG scar sternotomy scar well-healed. Heart: R egular Rate and Rhythm, no murmur, rubs or gallops. HEENT: p harynx and tonsils normal, TM's normal. Lungs: L CTAB, No wheezes, crackles or rhonchi, Good air movement,. Abdomen: S oft, nontender, colostomy in right lower quadrant functioning normal with soft stool in the bag. Assessment: * Assessment: 1. C . difficile colitis - A04.72 (Primary) 2 . P rimary insomnia - F51.01? 3. C olostomy status - Z93.3 4 . H ospital discharge follow-up - Z09 Plan: * Treatment: 2. P rimary insomnia Start traZODone HCl Tablet, 50 MG, 1 tablet at bedtime as needed, Orally, Once a day, 30 days, 30, Refills 1. Notes: Trazodone low-dose for insomnia issues. Wellbutrin and citalopram have been helping with anxiety during the day. 3. C olostomy status Notes: Discussed that she would be a good candidate for reversal, they are meant to be some imaging done to make sure that her intestinal status is viable 4. H ospital discharge follow-up Notes: Personally reviewed H&P and discharge summary as available from hospital discharge documentation. Reviewed pertinent labs and test done in the hospital. Personally reconciled medication. * Procedure Codes: 9 9496 TRANS CARE MGMT 7 DAY DISCH, Modifiers: 25 , 1111F DSC MED/CURENT MED MERGE * Follow Up: p rn * * Sign off status: Completed true * Provider: Dayana Quiroz MD Date: 0 07/30/2024 Generated for Little catalan/Fior/eTransmitting on: 0 08/07/2024 11:20 AM EDT History and Physical Notes * HPI (History of Present Illness) Category Sub-Category Detail Notes Category Not es Intrim History Transition of care visit from hospital Date of admission to hospital:: 07/21/2024 Patient here for posthospital visit from above dates. Admitted to [facility] on 07/21/2024 with possible pouchitis -initially treated with IV antibiotics but found to have C. difficile and transitioned over to vancomycin. Diarrhea improved and she was discharged home with p.o. Vanco and follow-up with our office. No evidence of pouchitis was found on further imaging and [facility] GI did not think patient needed further intervention from her colostomy status recently at Date of receipt of hospital admission re port:: 07/23/2024 Date of discharge from hospital:: 2024 Date of receipt of hospital discharge licea mmary:: 07/25/2024 Discharge medications review ed and reconciled from hospital:: Medications left unchanged Examination Category Sub-Category Detail Notes Category Not es General Examination HEENT: pharynx and tonsils normal, TM's normal Heart: Regular Rate and Rhy thm, no murmur, rubs or gallops Lungs: LCTAB, No wheezes, c rackles or rhonchi, Good air movement, Abdomen: Soft, nontender, col ostomy in right lower quadrant functioning normal with soft stool in the bag Chest: CABG scar sternotomy scar well-healed General Nguyễn and BRIE Narayan on RA,
--- OUTSIDE RECORDS SUMMARY | 2024-07-31 09:00 | XMS_ITS | Encounter Summary ---
Author Organization Healthcare Address [address] [place] [address] Care Team Providers Care Photonics Engineering Technologist Name Role Phone Champ Quiroz MD Primary Care Provider [phone] Reason for Visit * Reason Comments Post-op * Consultation (Routine) - Closed Specialty Diagnoses / Procedures Referred By Contac t Referred To Contact Diagnoses S/P colon resection Trinity Yousif S, SWITCH CLEANER [address] [facility] [address] [place] [address] Phone: tel: fax: Lidia Troncoso MD [address] [address] Phone: tel: fax: Referral ID Status Reason Start Date Expiration Date V isits Requested Visits Authorized [id number] Closed Specialty Services Required 06/21/2024 12/21/2025 1 1 Encounter Details Date Type Department Care Team (Late st Contact Info) Description 07/31/2024 9:00 AM EDT Office Visit [place] [facility] [address] [place] [address] Lidia Troncoso MD [phone] [place] [phone] S/P colostomy (CMS/HCC) (Primary Dx); S/P colon [...] time in the past 12 m [facility], were you homeless or living in a long-term (including now)? No 05/02/2024 AUDIT-C Answer Date [...] the past 12 months has th e [employer], gas, oil, or water [employer] threatened to shut off services in your [...] file Social Connections: Unknown (11/22/2022) Received from [facility] Family and Community Support Help with Day-to-Day [...] pulmonary disease) ([facility]) 05/01/2024 Continue Duo nebs q6 SPO2 goal >88% Depression GERD (gastroesophageal reflux disease) 05/01/2024 Continue Protonix 40 mg daily Hyperkalemia 05/06/2024 Now resolved, pt with hypokalemia requiring replacement On mechanically assisted ventilation ([facility]) 05/06/2024 Arrived to ICU intubated 05/07 extubated to 4LNC 05/08 resolved Tobacco use 05/01/2024 Hydrology Teacher for smoking 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 Complicates [...] Description 10/30/2024 10:45 AM EDT Office Visit [facility] General Surgery [address], [address] [place] [address] Lidia Troncoso MD [address] [place] [address] documented as of this encounter Goals Goal [...] documented as of this encounter Care Teams Photonics Engineering Technologist Relationship Specialty Start Date End Date Champ Quiroz MD [address] [address] [place] [address] PCP - General Internal Medicine 06/29/24 documented as of this encounter
[2024-08-07] VITALS (20 sets, daily range): BP systolic 90–138; BP diastolic 55–87; PULSE 75–94; RESP 16–20; TEMP 36.4–36.9; O2SAT 94–99; BMI 22.1
--- OUTSIDE RECORDS SUMMARY | 2024-08-07 11:19 | XMS_ITS | Encounter Summary ---
Author Organization Healthcare Address [address] [place] [address] Care Team Providers Care Mri Ct Tech Name Role Phone Pcp, No Primary Care Provider Champ Butler MD Primary Care Provider [phone] Encounter Details Date Type Department Care Team (Late st Contact Info) Description 05/21/2024 Lab Requisition [facility] [address] [place] [address] Tom Dyson MD [address] [facility] [address] [place] [address] Encounter for general adult medical examination without [...] time in the past 12 m [facility], were you homeless or living in a [...] Description 10/30/2024 10:45 AM EDT Office Visit [facility] General Surgery [address] [place] [address] Lidia Troncoso MD [address] [place] [address] documented as of this encounter [...] at day 1 05/22/2024 8:46 AM EDT [facility] Swab (Nares and Jacey Rectal) 05/21/2024 11:00 AM EDT 05/21/2024 11:55 AM EDT us Tom Dyson MD LAB MICROBIOLOGY - GEN ERAL ORDERABLES Final Result [facility] [address] [place] [address] documented in this encounter Visit Diagnoses Diagnosis [...] documented as of this encounter Care Teams Mri Ct Tech Relationship Specialty Start Date End Date Pcp, Katherine [address] [place] [address] PCP - General Family Medicine 04/04/24 06/28/24 Champ Quiroz MD [address] [place] [address] PCP - General Internal Medicine 06/29/24 documented as of this encounter
--- OUTSIDE RECORDS SUMMARY | 2024-08-07 11:20 | XMS_ITS | Encounter Summary ---
Author Organization Healthcare Address [address] [place] [address] Care Team Providers Care Fuller Brush Worker Name Role Phone Pcp, No Primary Care Provider Champ Butler MD Primary Care Provider [phone] Encounter Details Date Type Department Care Team (Late st Contact Info) Description 05/14/2024 Lab Requisition [facility] [address] [place] [address] Tom Dyson MD [address] [facility] [address] [place] [address] Encounter for general adult medical examination without [...] any time in the past 12 m [facility], were you homeless or living in [...] Description 10/30/2024 10:45 AM EDT Office Visit [place] [facility] [address] [place] [address] Lidia Troncoso MD [address] [place] [address] documented as of this encounter [...] at day 1 05/15/2024 11:17 AM EDT [facility] Swab (Nares and Jacey Rectal) 05/14/2024 8:24 AM EDT 05/14/2024 2:12 PM EDT us Tom Dyson MD LAB MICROBIOLOGY - GEN ERAL ORDERABLES Final Result [facility] [address] [place] [address] documented in this encounter Visit Diagnoses Diagnosis [...] documented as of this encounter Care Teams Fuller Brush Worker Relationship Specialty Start Date End Date Pcp, [place] [address] PCP - General Family Medicine 04/04/24 06/28/24 Champ Quiroz MD [address] [address] [place] [address] PCP - General Internal Medicine 06/29/24 documented as of this encounter
--- OUTSIDE RECORDS SUMMARY | 2024-08-07 11:21 | XMS_ITS | Encounter Summary ---
Author Organization Healthcare Address [address] [place] [address] Care Team Providers Care Furniture Finisher Apprentice Name Role Phone Champ Quiroz MD Primary Care Provider [phone] Encounter Details Date Type Department Care Team (Late st Contact Info) Description 08/07/2024 Telephone [facility] General Surgery [address] [place] [address] Rina Mason, RN [facility] Social History Tobacco Use Types Packs/Day Years [...] any time in the past 12 m [facility], were you homeless or living [...] encounter Miscellaneous Notes * Telephone Encounter - Rina Mason RN - 08/07/2024 10:37 AM EDT Patient is having severe lower abdominal pain that won't go away. Advised to go to local Ed for evaluation. Also reports being admitted to [facility] earlier this month for abdominal pain and they did a CT.Will request records and images for review. Viri, please request CT images/ report and d/c summary from [facility]. documented in this encounter Plan of Treatment Upcoming Encounters Date Type Department Care Team (Late st Contact Info) Description 10/30/2024 10:45 AM EDT Office Visit [facility] General Surgery [address] [place] [address] Lidia Troncoso MD [address] [place] [address] documented as of this encounter [...] documented as of this encounter Care Teams Furniture Finisher Apprentice Relationship Specialty Start Date End Date Champ Quiroz MD [address] [place] [address] PCP - General Internal Medicine 06/29/24 documented as of this encounter
--- OUTSIDE RECORDS SUMMARY | 2024-08-07 11:21 | XMS_ITS | Encounter Summary ---
Author Organization [facility] [place] Address [address] [place] [address] Care Team Providers Care Fine Arts Chair Name Role Phone Champ Quiroz MD Primary Care Provider + [phone] Encounter Details Date Type Department Care Team (Latest Contact Info) Description 07/31/2024 Travel Social History Tobacco Use Types Packs/Day [...] in the past [address] [facility], were you homeless or living [...] the past 12 months has th e [employer], gas, oil, or water company threatened to [...] Description 10/30/2024 10:45 AM EDT Office Visit [facility] General Surgery [address], [address] [place] [address] Lidia Troncoso MD [address] [place] [address] documented as of this encounter Goals Goal [...] documented as of this encounter Care Teams Fine Arts Chair Relationship Specialty Start Date End Date Champ Quiroz MD [address] [place] [address] PCP - General Internal Medicine 06/29/24 documented as of this encounter
--- OUTSIDE RECORDS SUMMARY | 2024-08-07 11:22 | XMS_ITS | Encounter Summary ---
Author Organization Healthcare Address [address] [place] [address] Care Team Providers Care Architect Name Role Phone Pcp, No Primary Care Provider Unavailabl e Encounter Details Date Type Department Care Team (Late st Contact Info) Description 06/25/2024 Telephone [facility] General Surgery [address], [address] [place] [address] Katharine Urbano RN TRAUMA & [...] Description 10/30/2024 10:45 AM EDT Office Visit [facility] General Surgery [address], 1[address] [place] [address] Lidia Troncoso MD [address] [place] [address] documented as of this encounter [...] documented as of this encounter Care Teams Architect Relationship Specialty Start Date End Date Pcp, [place] [address] PCP - General Family Medicine 04/04/24 06/28/24 documented as of this encounter
--- OUTSIDE RECORDS SUMMARY | 2024-08-07 11:22 | XMS_ITS | Encounter Summary ---
Author Organization [facility] Address [address] [place] [address] Care Team Providers Care Senior Hydrogeologist Name Role Phone Champ Qurioz MD Primary Care Provider + [phone] Encounter Details Date Type Department Care Team [...] in the past 12 m [facility], were you homeless or living [...] at all 06/29/2024 2:40 PM EDT Thai'Marva Obnado Feeling down, depressed, or hopeless Several days [...] Questionnaire -9 Score 1 06/29/2024 2:40 PM EDMarva Peter * If you checked off any problems [...] Description 10/30/2024 10:45 AM EDT Office Visit [facility] General Surgery [address], [address] [place] [address] Lidia Troncoso MD [address] [place] [address] documented as of this encounter [...] as of this encounter Care Teams Senior Hydrogeologist Relationship Specialty Start Date End Date Champ Quiroz MD [address] [place] [address] PCP - General Internal Medicine 06/29/24 documented as of this encounter
--- OUTSIDE RECORDS SUMMARY | 2024-08-07 11:22 | XMS_ITS | Encounter Summary ---
Author Organization Healthcare Address [address] [place] [address] Care Team Providers Care Cocoa Milling Machine Operator Name Role Phone Pcp, No [...] No 05/02/2024 Housing Stability Vital Sign Answer Augilar e Recorded In the last 12 months, was t here a time when you were not able to pay the mortgage or rent on time? No 05/02/2024 Number of Times Moved in the Last Year Not on fi le 05/02/2024 At any time in the past 12 m [facility], were you homeless or living in a [...] Description 10/30/2024 10:45 AM EDT Office Visit [facility] General Surgery [address], [address] [place] [address] Lidia Troncoso MD [address] [place] [address] documented as of this encounter Goals Goal [...] documented as of this encounter Care Teams Cocoa Milling Machine Operator Relationship Specialty Start Date End Date Pcp, [place] [address] PCP - General Family Medicine 04/04/24 06/28/24 documented as of this encounter
--- OUTSIDE RECORDS SUMMARY | 2024-08-07 11:22 | XMS_ITS | Encounter Summary ---
Author Organization Healthcare Address [address] [place] [address] Care Team Providers Care Society Editor Name Role Phone Champ Quiroz MD Primary Care Provider [phone] Encounter Details Date Type Department Care Team (Late st Contact Info) Description 07/20/2024 Telephone [facility] [address], [address] [place] [address] Ana Luisa Simental RN HOSPITAL LUNG [id number] [address] [phone] Social History Tobacco Use Types Packs/Day Years [...] the past 12 months has th e [employer], [employer], oil, or water [employer] threatened to shut off services in your [...] Description 10/30/2024 10:45 AM EDT Office Visit [facility] General Surgery [address], [address] [place] [address] Lidia Troncoso MD [address] [place] [address] documented as of this encounter [...] documented as of this encounter Care Teams Society Editor Relationship Specialty Start Date End Date Champ Quiroz MD [address] [place] [address] PCP - General Internal Medicine 06/29/24 documented as of this encounter
--- OUTSIDE RECORDS SUMMARY | 2024-08-07 11:22 | XMS_ITS | Encounter Summary ---
Author Organization [facility] Address [address] [place] [address] Care Team Providers Care Digital Marketing Strategist Name Role Phone Champ Quiroz MD Primary Care Provider + [phone] Encounter Details Date Type Department Care Team [...] any time in the past 12 m [facility], were you homeless or living [...] the past 12 months has th e [employer], gas, oil, or water company threatened to [...] Description 10/30/2024 10:45 AM EDT Office Visit [facility] General Surgery [address], [address] [place] [address] Lidia Troncoso MD [address] [place] [address] documented as of this encounter [...] documented as of this encounter Care Teams Digital Marketing Strategist Relationship Specialty Start Date End Date Champ Quiroz MD [address] [place] [address] PCP - General Internal Medicine 06/29/24 documented as of this encounter
--- OUTSIDE RECORDS SUMMARY | 2024-08-07 11:22 | XMS_ITS | Encounter Summary ---
Author Organization Healthcare Address [address] [id number] Care Team Providers Care Public Transit Specialist Name Role Phone Pcp, No Primary Care Provider Unavailabl e Encounter Details Date Type Department Care Team (Late st Contact Info) Description 06/26/2024 Telephone [facility] [address], [address] [place] [address] Ana Luisa Simental, RN HOSPITAL LUNG [id number] [address] [place] [address] Social History Tobacco Use Types Packs/Day Years [...] any time in the past 12 m [facility], were you homeless or living in a fpc (including now)? No 05/02/2024 Utilities Answer Date Recorded In the past 12 months has th e [employer], gas, oil, or water [employer] threatened to shut off services in your [...] [address], [address] [place] [address] Lidia Troncoso MD [address] [place] [address] documented as of this encounter [...] documented as of this encounter Care Teams Public Transit Specialist Relationship Specialty Start Date End Date Pcp, [place] [address] PCP - General Family Medicine 04/04/24 06/28/24 documented as of this encounter
--- OUTSIDE RECORDS SUMMARY | 2024-08-07 11:22 | XMS_ITS | Encounter Summary ---
Author Organization Healthcare Address [address] [place] [address] Care Team Providers Care Mica Laminating Machine Feeder Name Role Phone Pcp, No Primary Care Provider Unavailabl e Reason for Visit * Reason Onset Date Comments HCN Clinical Concern/Question 06/26/2024 Encounter Details Date Type Department Care Team (Late st Contact Info) Description 06/26/2024 Telephone [facility] General Surgery [address], [address] [place] [address] Judy Mancuso MD [address] [place] [address] HCN Clinical Concern/Question Social History [...] in the past 12 m [facility], were you homeless or living in a halfway (including now)? No 05/02/2024 Utilities Answer Date [...] to talk to nurse Best contact number: [phone] (home) Optimal time of day to reach caller: ANYTIME Additional comments/information from caller: None Note: Please do not reply to this message. Follow-up communication and further actions as a result of this message need to be communicated with the patient directly, if the patient is not active onMyChart. If the patient is active on MyChart, they will receive notification of the communication/outcome via myJambihart. documented in this encounter Plan of Treatment Upcoming Encounters Date Type Department Care Team (Late st Contact Info) Description 10/30/2024 10:45 AM EDT Office Visit [facility] General Surgery [address], [address] [place] [address] Lidia Troncoso MD [address] [place] [address] documented as of this encounter [...] documented as of this encounter Care Teams Mica Laminating Machine Feeder Relationship Specialty Start Date End Date Pcp, [place] [address] PCP - General Family Medicine 04/04/24 06/28/24 documented as of this encounter
--- OUTSIDE RECORDS SUMMARY | 2024-08-07 11:23 | XMS_ITS | Encounter Summary ---
Author Organization Healthcare Address [address] [place] [address] Care Team Providers Care Shellfish Shucker Name Role Phone Pcp, No Primary Care [...] Description 10/30/2024 10:45 AM EDT Office Visit [facility] General Surgery [address], [address] [place] [address] Lidia Troncoso MD [address] [place] [address] documented as of this encounter Goals Goal [...] documented as of this encounter Care Teams Shellfish Shucker Relationship Specialty Start Date End Date Pcp, [place] [address] PCP - General Family Medicine 04/04/24 06/28/24 documented as of this encounter
--- OUTSIDE RECORDS SUMMARY | 2024-08-07 11:23 | XMS_ITS | Encounter Summary ---
Author Organization Healthcare Address [address] [place] [address] Care Team Providers Care Hired Help Name Role Phone Pcp, No Primary Care [...] any time in the past 12 m [facility], were you homeless or living in [...] Description 10/30/2024 10:45 AM EDT Office Visit [facility] General Surgery [address], [address] [place] [address] Lidia Troncoso MD [address] [place] [address] documented as of this encounter Goals Goal [...] documented as of this encounter Care Teams Hired Help Relationship Specialty Start Date End Date Pcp, [place] [address] PCP - General Family Medicine 04/04/24 06/28/24 documented as of this encounter
--- OUTSIDE RECORDS SUMMARY | 2024-08-07 11:23 | XMS_ITS | Clinical Summary ---
Author Organization [facility] Address [address] [place] [address] Care Team Providers Care Senior Research Executive Name Role Phone Champ Quiroz MD Primary Care Provider [phone] Allergies Active Allergy Reactions Criticality Noted Date [...] Active Additional Information Patient not taking.Reported on 07/31/2024 metoprolol tartrate (Lopressor) 25 MG tablet Take 1 tablet by mouth 2 times a day. 60 tablet 2 5 06/22/19 26 Active Additional Information Patient not taking.Reported on 07/31/2024 naloxone (Narcan) 4 mg/0.1 mL nasal spray 1. Give 1 spray in nostril for no/slow breathing or cannot wake after opioid use 2. Call 911 3. Repeat in other nostril if symptoms continue 1 each 5 Active rosuvastatin (Crestor) 40 MG tablet Take 1 tablet by mouth nightly. 30 tablet 2 5 06/22/19 26 Active simethicone (Mylicon) 80 MG chewable tablet Chew 1.5 tablets 4 times a day. 30 tablet 5 Active metoprolol tartrate (Lopressor) 25 MG tablet Take 1.5 tablets by mouth 2 times a day. 90 tablet 1 5 09/17/19 25 Active aspirin 81 MG chewable tablet Chew 1 tablet daily. 30 tablet 2 5 07/19/19 26 Active potassium chloride CR (Klor-Con M20) 20 MEQ ER tablet Take 2 tablets by mouth daily. Do not crush or chew. 60 tablet 5 07/19/19 26 Active traZODone (Desyrel) 50 MG tablet 1 (one) time each day at the same time. 5 Active aspirin 81 MG chewable tablet Chew 1 tablet daily. 30 tablet 2 5 07/19/19 25 Discontin ued(Reord er) Active Problems Problem Noted Date Diagnosed Date [...] SBP within goal Cardiac volume overload 05/06/2024 0409/2024 Overview (05/18/2024): Diuresis as clinically indicated Prolonged Q-T interval on ECG 05/04/2024 06/21/2024 Overview (05/07/2024): 05/07 EKG reviewed Colon perforation 05/01/2024 06/21/2024 Overview (06/11/2024): Noted on CT scan 05/23/24 S/p left colectomy and end colostomy 05-23-24 Encounters Date Type Department Care Team Description 08/07/[address] [facility] General Surgery [address], [address] [place] [address] Rina Mason RN 07/31/2024 9:00 AM EDT Office Visit [facility] General Surgery [address], [address] [place] [phone] Lidia Troncoso MD S/P colostomy ([facility]) (Primary Dx); S/P colon resection 07/31/2024 Travel 07/20/[address] [facility] Cardiothoracic [address], [address] [place] [address] Ana Luisa Simental RN 07/18/2024 11:00 AM EDT Office Visit [facility] Cardiothoracic [address], [address] [place] [address] Maite Austin MD CAD, multiple vessel (Primary Dx); Tobacco use; Anxiety and depression; Chronic obstructive pulmonary disease, unspecified COPD type ([facility]); NSTEMI (non-ST elevated myocardial infarction) ([facility]); THOM (obstructive sleep apnea); S/P CABG x 4; Post-op pain 07/18/2024 9:52 AM EDT - 07/18/2024 11:59 PM EDT Hospital Encounter [facility] Radiology [address], [address] [place] [address] CAD, multiple vessel Discharge Disposition: Home or Self Care 07/18/2024 Travel 06/29/2024 2:30 PM EDT Office Visit [facility] General Surgery [address], [address] [place] [address] Lidia Troncoso MD 06/29/2024 Travel 06/26/[address] [facility] Cardiothoracic [address], [address] [place] [address] Ana Luisa Simental RN 06/26/[address] [facility] General Surgery [address], [address] [place] [address] Judy Mancuso MD HCN Clinical Concern/Question 06/25/[address] [facility] General Surgery [address], [address] [place] [address] Katharine Urbano RN 06/21/2024 Travel 06/20/2024 Travel 06/19/2024 Travel 06/18/2024 Travel 06/17/2024 Travel 06/15/2024 Travel 06/14/2024 Travel 06/11/2024 Travel 06/09/2024 Travel 06/08/2024 Travel 06/05/2024 Travel 06/04/2024 Travel 06/01/2024 Travel 05/31/2024 Travel 05/30/2024 Travel 05/29/2024 Results Follow-Up Colorectal Surgery [address] [place] [address] Lidia Troncoso MD 05/29/2024 Travel 05/28/2024 Travel 05/27/2024 Travel 05/26/2024 Travel 05/25/2024 Travel 05/24/2024 Travel 05/23/2024 1:30 PM EDT Anesthesia Event [facility] [address] [place] [id number] Compa Cuellar MD Carney Tinsley, Amanda S, BEER MAKER, DNP 05/23/2024 12:31 PM EDT - 05/23/2024 4:06 PM EDT Surgery [facility] [address] [place] [address] Judy Mancuso MD LAPAROTOMY, EXPLORATORY, possible bowel resection, possible ostomy [18487 (CPT )] 05/23/2024 Travel 05/22/2024 Travel 05/21/2024 Lab Requisition [facility] [address] [place] [address] Tom Dyson MD Encounter for general adult medical examination without abnormal findings 05/21/2024 Travel 05/20/2024 Travel 05/19/2024 Travel 05/18/2024 Travel 05/17/2024 Travel 05/16/2024 Travel 05/15/2024 Travel 05/14/2024 Lab Requisition [facility] [address] [place] [address] Tom Dyson MD Encounter for general adult medical examination without abnormal findings 05/14/2024 Travel 05/13/2024 Travel 05/12/2024 Travel 05/11/2024 Travel 05/10/2024 Travel 05/09/2024 Travel 05/08/2024 Travel 05/07/2024 Travel 05/01/2024 11:01 PM EDT - 06/21/2024 3:41 PM EDT Hospital Encounter [facility] Inpatient [address] [place] [address] Edson Mcclure, Erum Bustos MD Reda, Hassan K, MD S/P colon resection (Primary Dx); CAD, multiple vessel; Cardiac volume overload; S/P CABG x 4; Colon perforation (CMS/HCC); Abdominal fluid collection Discharge Disposition: Home or Self Care from Last 3 Months Social History Tobacco [...] any time in the past 12 m [facility], were you homeless or living in a half-way (including now)? No 05/02/2024 AUDIT-C Answer Date [...] the past 12 months has th e [employer], gas, oil, or water company threatened to [...] Mass Index 23.1 07/31/2024 9:11 AM EDT Plan of Treatment Upcoming Encounters Date Type Department Care Team (Late st Contact Info) Description 10/30/2024 10:45 AM EDT Office Visit 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 Shelf Expiration Date Model / Serial / Lot Pledget Ptfe [place] 4.8mm X 6mm - [id number] Implanted:05/06 by Maite Austin MD at [facility] (Quantity not on file) [id number] / / Procedures Procedure Name Priority Date/Time [...] OXYGEN THERAPY Routine 05/30/2024 8:00 PM EDT NV NEGATIVE PRESSURE WOUND THERAPY DME >50 SQ [...] OXYGEN THERAPY Routine 05/28/2024 8:00 PM EDT NV NEGATIVE PRESSURE WOUND THERAPY DME >50 SQ CM Routine 05/28/2024 6:10 PM EDT Colon perforation (CMS/HCC) NV CRITICAL CARE, ADDL 30 MIN Routine 05/28/2024 [...] PEP THERAPY Routine 05/27/2024 2:00 PM EDT NV CRITICAL CARE, E/M 30-74 MINUTES Routine 05/27/2024 11:12 AM EDT Colon perforation ([facility]) PEP THERAPY Routine 05/27/2024 10:00 AM EDT [...] BLOOD CELLS Routine 05/26/2024 4:16 PM EDT NV CRITICAL CARE, ADDL 30 MIN Routine 05/26/2024 [...] PEP THERAPY Routine 05/24/2024 2:00 PM EDT NV CRITICAL CARE, E/M 30-74 MINUTES Routine 05/24/2024 [...] ANESTHESIA PLACEHOLDER Routine 05/23/2024 1:43 PM EDT NV AN ELECTIVE ENDOTRACHEAL AIRWAY Routine 05/23/2024 1:43 PM EDT NV PART REMOVAL COLON W ANASTOMOSIS 05/23/2024 1:16 PM EDT Colon perforation (CMS/HCC) NV EXPLORATORY OF ABDOMEN 05/23/2024 1:16 PM EDT [...] WHOLE BLOOD Timed 05/21/2024 12:09 PM EDT NV CRITICAL CARE, E/M 30-74 MINUTES Routine 05/21/2024 [...] PEP THERAPY Routine 05/20/2024 2:00 PM EDT NV CRITICAL CARE, E/M 30-74 MINUTES Routine 05/20/2024 [...] PEP THERAPY Routine 05/19/2024 6:00 PM EDT NV CRITICAL CARE, E/M 30-74 MINUTES Routine 05/19/2024 [...] VIEW Routine 05/19/2024 4:4 3 AM EDT NV CRITICAL CARE, ADDL 30 MIN Routine 05/19/2024 [...] UNSOLICITED RESULTS Routine 05/18/2024 5:55 PM EDT NV CRITICAL CARE, E/M 30-74 MINUTES Routine 05/18/2024 [...] PEP THERAPY Routine 05/17/2024 6:00 PM EDT NV CRITICAL CARE, E/M 30-74 MINUTES Routine 05/17/2024 [...] HEPATIC FUNCTION PANEL Routine 11:30 AM EDT NV CRITICAL CARE, ADDL 30 MIN Routine 05/09/2024 [...] PEP THERAPY Routine 05/08/2024 2:00 PM EDT NV CRITICAL CARE, ADDL 30 MIN Routine 05/08/2024 [...] UNSOLICITED RESULTS Routine 05/07/2024 1:50 PM EDT NV CRITICAL CARE, ADDL 30 MIN Routine 05/07/2024 [...] ARTERIAL Pending Discharge 05/07/2024 12:45 AM EDT from Last 3 Months Results * ECG Adult (07/18/2024 11:22 AM EDT) Only the most recent of5 resultswithin the time period is included. EKG DIAGNOSIS CLASS Abnormal MUSE ECG Ventricular Rate 109 BPM MUSE ECG Atrial Rate 109 BPM MUSE ECG NV Interval 120 ms MUSE ECG QRSD Interval 70 ms MUSE ECG QT Interval 394 ms MUSE ECG QTC Interval 530 ms MUSE ECG P [place] 77 degrees MUSE ECG R [place] 79 degrees MUSE ECG T Wave [place] 100 degrees MUSE ECG Diagnosis Sinus tachycardia [...] 10:14 AM EDT) Only the most recent of31 resultswithin the time period is included. WBC Count 13.01(H) 3.70 - 10.30 10*3/uL LAB HEMATOLOGY METHOD 07/18/2024 11:08 AM EDT [facility] RBC Count 3.97 3.90 - 5.20 10*6/uL LAB HEMATOLOGY METHOD 07/18/2024 11:08 AM EDT [facility] HGB 11.5 11.2 - 15.7 g/dL LAB HEMATOLOGY METHOD 07/18/2024 11:08 AM EDT [facility] HCT 35.5 34.0 - 45.0 % LAB HEMATOLOGY METHOD 07/18/2024 11:08 AM EDT [facility] Platelet Count 582(H) 155 - 369 10*3/uL LAB HEMATOLOGY METHOD 07/18/2024 11:08 AM EDT [facility] MCV 89 79 - 98 fL LAB HEMATOLOGY METHOD 07/18/2024 11:08 AM EDT [facility] MCH 29.0 26.0 - 32.0 pg LAB HEMATOLOGY METHOD 07/18/2024 11:08 AM EDT [facility] MCHC 32.4 30.7 - 35.5 g/dL LAB HEMATOLOGY METHOD 07/18/2024 11:08 AM EDT [facility] RDW 14.9(H) 11.5 - 14.5 % LAB HEMATOLOGY METHOD 07/18/2024 11:08 AM EDT [facility] MPV 9.1 8.8 - 12.5 fL LAB HEMATOLOGY METHOD 07/18/2024 11:08 AM EDT [facility] nRBC 0.0 <=0.0 per 100 WBCs LAB HEMATOLOGY METHOD 07/18/2024 11:08 AM EDT [facility] Blood Venous blood specimen / Unknown Venipuncture / Unknown 07/18/2024 10:14 AM EDT 07/18/2024 10:14 AM EDT us Maite Austin MD LAB BLOOD ORDERABLES Final Resu lt [facility] [address] [place] [address] * (ABNORMAL) Basic Metabolic Panel, Plasma (07/18/2024 10:14 AM EDT) Only the most recent of21 resultswithin the time period is included. Glucose, Plasma 126(H) 74 - 99 mg/dL 07/18/2024 12:13 PM EDT [facility] BUN, Plasma 5(L) 7 - 21 mg/dL 07/18/2024 12:13 PM EDT [facility] Creatinine, Plasma 0.54(L) 0.60 - 1.10 mg/dL 07/18/2024 12:13 PM EDT [facility] BUN/Creatinine Ratio 9 07/18/2024 12:13 PM EDT [facility] Sodium, Plasma 137 136 - 145 mmol/L 07/18/2024 12:13 PM EDT [facility] Potassium, Plasma 2.5(LL) 3.6 - 4.9 mmol/L 07/18/2024 12:13 PM EDT [facility] Chloride, Plasma 95(L) 97 - 107 mmol/L 07/18/2024 12:13 PM EDT [facility] CO2, Plasma 29 22 - 29 mmol/L 07/18/2024 12:13 PM EDT [facility] Anion Gap 13 6 - 16 mmol/L 07/18/2024 12:13 PM EDT [facility] Total Calcium, Plasma 8.2(L) 8.9 - 10.2 mg/dL 07/18/2024 12:13 PM EDT [facility] eGFRcr 109.6 mL/min/1.7 3m*2 07/18/2024 12:13 PM EDT [facility] Comment:Reported eGFRcr in m L/min/1.73m2 is based the CKD-EPI 2020 equation that does not use a race coefficient. Blood Venous blood specimen / Unknown Venipuncture / Unknown 07/18/2024 10:14 AM EDT 07/18/2024 10:14 AM EDT Maite Austin MD LAB BLOOD ORDERABLES Final Resu lt [facility] [address] [place] [address] * XR Chest 2 Views (07/18/2024 9:58 [...] 4:36 AM EDT) Only the most recent of30 resultswithin the time period is included. Anatomical [...] MD on 06/21/2024 7:27 AM Trinity Yousif BEER MAKER IMG XR PROCEDURES Final Result * XR [...] MD on 06/21/2024 10:22 AM Trinity Yousif APRN IMG XR PROCEDURES Final Result * (ABNORMAL) Magnesium (06/21/2024 2:59 AM EDT) Only the most recent of58 resultswithin the time period is included. Magnesium, Plasma 1.7(L) 1.9 - 2.4 mg/dL 06/21/2024 3:52 AM EDT [facility] Blood Venous blood specimen / Unknown Venipuncture / Unknown 06/21/2024 2:59 AM EDT 06/21/2024 3:23 AM EDT Trinity Yousif APRN LAB BLOOD ORDERABLES Final Res ult [facility] [address] [place] [address] * (ABNORMAL) Comprehensive metabolic panel (06/21/2024 2:59 AM EDT) Only the most recent of21 resultswithin the time period is included. Glucose, Plasma 94 74 - 99 mg/dL 06/21/2024 3:52 AM EDT [facility] BUN, Plasma 4(L) 7 - 21 mg/dL 06/21/2024 3:52 AM EDT [facility] Creatinine, Plasma 0.63 0.60 - 1.10 mg/dL 06/21/2024 3:52 AM EDT [facility] BUN/Creatinine Ratio 6 06/21/2024 3:52 AM EDT [facility] Sodium, Plasma 131(L) 136 - 145 mmol/L 06/21/2024 3:52 AM EDT [facility] Potassium, Plasma 3.9 3.6 - 4.9 mmol/L 06/21/2024 3:52 AM EDT [facility] Chloride, Plasma 98 97 - 107 mmol/L 06/21/2024 3:52 AM EDT [facility] CO2, Plasma 25 22 - 29 mmol/L 06/21/2024 3:52 AM EDT [facility] Anion Gap 8 6 - 16 mmol/L 06/21/2024 3:52 AM EDT [facility] Total Calcium, Plasma 8.1(L) 8.9 - 10.2 mg/dL 06/21/2024 3:52 AM EDT [facility] Total Protein 6.7 6.3 - 7.9 g/dL 06/21/2024 3:52 AM EDT [facility] Albumin, Plasma 2.5(L) 3.5 - 5.2 g/dL 06/21/2024 3:52 AM EDT [facility] AST, Plasma 31 10 - 35 U/L 06/21/2024 3:52 AM EDT [facility] ALT, Plasma 54(H) 10 - 35 U/L 06/21/2024 3:52 AM EDT [facility] Alkaline Phosphatase, Plasma 155(H) 35 - 104 U/L 06/21/2024 3:52 AM EDT [facility] Total Bilirubin, Plasma 0.2 0.2 - 1.1 mg/dL 06/21/2024 3:52 AM EDT [facility] eGFRcr 105.6 mL/min/1.7 3m*2 06/21/2024 3:52 AM EDT [facility] Comment:Reported eGFRcr in m L/min/1.73m2 is based the CKD-EPI 2020 equation that does not use a race coefficient. Blood Venous blood specimen / Unknown Venipuncture / Unknown 06/21/2024 2:59 AM EDT 06/21/2024 3:23 AM EDT Trinity Anne Benja BEER MAKER LAB BLOOD ORDERABLES Final Res ult [facility] [address] [place] [address] * N-Terminal Probnp, Plasma (06/20/2024 4:45 AM EDT) Only the most recent of6 resultswithin the time period is included. N-Terminal, PROBNP, Plasma 652 0 - 899 pg/mL 06/20/2024 6:04 AM EDT [facility] Blood Venous blood specimen / Unknown Venipuncture / Unknown 06/20/2024 4:45 AM EDT 06/20/2024 5:24 AM EDT us Dulce Alamo BEER MAKER LAB BLOOD [place] [address] * (ABNORMAL) POCT glucose meter (06/17/2024 8:09 PM EDT) Only the most recent of114 resultswithin the time period is included. Pathologist [facility] POCT Glucose 145(H) 74 - [...] for testing. Comment 06/17/2024 8:11 PM EDT [facility] Monotype Machinist ID Sam, [place] 025 8:11 PM EDT [facility] Device ID [id number] 06/17/2024 8:11 PM EDT [facility] Specimen Type POC Capillary 06/17/2024 8:11 PM EDT [facility] Blood Capillary blood specimen / Unknown 06/17/2024 8:09 PM EDT 06/17/2024 8:11 PM EDT us Maite Austin MD LAB POINT OF CARE TE ST DOCKED DEVICE UNSOLICITED RESULTS Final Result Performing Organization Address City/[facility] Co de Phone Number [facility] [address] [place] [address] * SEND JOCELYNE MESSAGE (06/16/2024 8:21 PM EDT) Urine Urine specimen obtained by clean catch procedure / Unknown Non-blood Collection / Unknown 06/16/2024 8:21 PM EDT 06/16/2024 8:26 PM EDT us Trinity Yousif BEER MAKER LAB URINE ORDERABLES Final Res ult Performing Organization Address [facility] de Phone Number [facility] [address] [place] [address] * Urine Francis Panel (06/16/2024 8:21 PM EDT) Extra Sent for Culture 06/16/2024 10:02 PM EDT [facility] Urine Urine specimen obtained by clean catch procedure / Unknown Non-blood Collection / Unknown 06/16/2024 8:21 PM EDT 06/16/2024 8:26 PM EDT us Trinity Yousif BEER MAKER LAB URINE ORDERABLES Final Res ult Performing Organization Address City/[facility] Co de Phone Number [facility] [address] [place] [address] * Urinalysis Microscopic Examination (06/16/2024 8:21 PM EDT) Urine Urine specimen obtained by clean catch procedure / Unknown Non-blood Collection / Unknown 06/16/2024 8:21 PM EDT 06/16/2024 8:26 PM EDT us Trinity S Benja BEER MAKER LAB URINE ORDERABLES Final Res ult [facility] [address] [place] [address] * (ABNORMAL) Urinalysis with reflex microscopic (Culture NOT Included) (06/16/2024 8:21 PM EDT) Only the most recent of2 resultswithin the time period is included. Color, Urine Yellow LAB URINALYSIS - AUTOMATED METHOD 06/16/2024 8:55 PM EDT [facility] Clarity, Urine Clear LAB URINALYSIS - AUTOMATED METHOD 06/16/2024 8:55 PM EDT [facility] Spec [place], Urine 1.013 1.005 - 1.030 LAB URINALYSIS - AUTOMATED METHOD 06/16/2024 8:55 PM EDT [facility] pH, Urine 6.0 5.0 - 8.0 LAB URINALYSIS - AUTOMATED METHOD 06/16/2024 8:55 PM EDT [facility] Protein, Urine Negative Negative mg/dL LAB URINALYSIS - AUTOMATED METHOD 06/16/2024 8:55 PM EDT [facility] Glucose, Urine Negative Negative mg/dL LAB URINALYSIS - AUTOMATED METHOD 06/16/2024 8:55 PM EDT [facility] Ketones, Urine Negative Negative mg/dL LAB URINALYSIS - AUTOMATED METHOD 06/16/2024 8:55 PM EDT [facility] Blood, Urine Negative Negative LAB URINALYSIS - AUTOMATED METHOD 06/16/2024 8:55 PM EDT [facility] Bilirubin, Urine Negative Negative LAB URINALYSIS - AUTOMATED METHOD 06/16/2024 8:55 PM EDT [facility] Urobilinogen, Urine 0.2 0.2 to 1.0 mg/dL LAB URINALYSIS - AUTOMATED METHOD 06/16/2024 8:55 PM EDT [facility] Leukocytes, Urine Large(A) Negative LAB URINALYSIS - AUTOMATED METHOD 06/16/2024 8:55 PM EDT [facility] Nitrite, Urine Negative Negative LAB URINALYSIS - AUTOMATED METHOD 06/16/2024 8:55 PM EDT [facility] RBC, Urine 2 0 to 3 /HPF LAB URINALYSIS - AUTOMATED METHOD 06/16/2024 8:55 PM EDT [facility] WBC, Urine >50(A) 0 to 5 /HPF LAB URINALYSIS - AUTOMATED METHOD 06/16/2024 8:55 PM EDT [facility] Squamous Epithelial Cells 11 - 20(A) 0 to 5 /HPF LAB URINALYSIS - AUTOMATED METHOD 06/16/2024 8:55 PM EDT [facility] Hyaline Casts 0 - 2 0 to 5 /LPF LAB URINALYSIS - AUTOMATED METHOD 06/16/2024 8:55 PM EDT [facility] Bacteria, Urine Present Negative LAB URINALYSIS - AUTOMATED METHOD 06/16/2024 8:55 PM EDT [facility] Renal Tubular Cells Present Absent 06/16/2024 8:55 PM EDT [facility] Transitional Epithelial Cells Present Absent 06/16/2024 8:55 PM EDT [facility] Yeast (Budding and/or Pseudohyphae) Present(A) Absent 06/16/2024 8:55 PM EDT [facility] Urine Urine specimen obtained by clean catch procedure / Unknown Non-blood Collection / Unknown 06/16/2024 8:21 PM EDT 06/16/2024 8:26 PM EDT Narrative [facility] - 06/16/2024 8:55 PM EDT Performed by manual method us Trinity Yousif APRN LAB URINE ORDERABLES Final Res ult [facility] [address] [place] [address] * Urine Culture (06/16/2024 8:21 PM EDT) Only the most recent of2 resultswithin the time period is included. Culture <10,000 CFU/mL Mixed urogenital, fecal, or skin quincy present. 06/18/2024 10:03 AM EDT [facility] Urine Urine specimen obtained by clean catch procedure / Unknown Non-blood Collection / Unknown 06/16/2024 8:21 PM EDT 06/16/2024 8:26 PM EDT us Trinity S Yousif BEER MAKER LAB MICROBIOLOGY - GENERAL ORD ERABLES Final Result [facility] [address] [place] [address] * XR Hip Right 2 or 3 [...] - 41.0 mg/dL 06/15/2024 8:27 AM EDT [facility] Blood Venous blood specimen / Unknown Venipuncture / Unknown 06/15/2024 4:49 AM EDT 06/15/2024 5:28 AM EDT us Trinity Yousif BEER MAKER LAB BLOOD ORDERABLES Final Res ult [facility] [address] [place] [address] * CT Head wo IV Contrast (06/14/2024 [...] MD on 06/15/2024 8:12 AM Uriah [facility] CT PROCEDURES Final Res ult * (ABNORMAL) Blood gas panel, venous (06/14/2024 12:58 AM EDT) Only the most recent of4 resultswithin the time period is included. pH, Venous 7.42 7.32 - 7.43 LAB HEMATOLOGY METHOD 06/14/2024 1:14 AM EDT [facility] pCO2, Venous 46 37 - 52 mmHg LAB HEMATOLOGY METHOD 06/14/2024 1:14 AM EDT [facility] pO2, Venous 36 25 - 40 mmHg LAB HEMATOLOGY METHOD 06/14/2024 1:14 AM EDT [facility] SO2, Measured, Venous 66 65 - 80 % LAB HEMATOLOGY METHOD 06/14/2024 1:14 AM EDT [facility] Base Excess, Venous 4.7(H) -2.0 - 3.0 mmol/L LAB HEMATOLOGY METHOD 06/14/2024 1:14 AM EDT [facility] Bicarbonate, Calculated, Venous 30(H) 22 - 26 mmol/L LAB HEMATOLOGY METHOD 06/14/2024 1:14 AM EDT [facility] Hematocrit, Whole Blood 33.3(L) 34.0 - 45.0 % LAB HEMATOLOGY METHOD 06/14/2024 1:14 AM EDT [facility] Sodium, Whole Blood 129(L) 136 - 145 mmol/L LAB HEMATOLOGY METHOD 06/14/2024 1:14 AM EDT [facility] Potassium, Whole Blood 3.6 3.6 - 4.9 mmol/L LAB HEMATOLOGY METHOD 06/14/2024 1:14 AM EDT [facility] Chloride, Whole Blood 93(L) 97 - 107 mmol/L LAB HEMATOLOGY METHOD 06/14/2024 1:14 AM EDT [facility] Glucose, Whole Blood 106(H) 74 - 99 mg/dL LAB HEMATOLOGY METHOD 06/14/2024 1:14 AM EDT [facility] Lactate, Venous, Whole Blood 0.7 0.5 - 2.2 mmol/L LAB HEMATOLOGY METHOD 06/14/2024 1:14 AM EDT [facility] Ionized Calcium, Whole Blood 4.6 4.6 - 5.1 mg/dL LAB HEMATOLOGY METHOD 06/14/2024 1:14 AM EDT [facility] Blood Venous blood specimen / Unknown (Central Line) Existing Catheter / Unknown 06/14/2024 12:58 AM EDT 06/14/2024 1:13 AM EDT us Maite Austin MD LAB BLOOD ORDERABLES Final Resu lt [facility] [address] [place] [address] * (ABNORMAL) CBC and differential (06/12/2024 3:24 AM EDT) Only the most recent of21 resultswithin the time period is included. [facility] WBC Count 10.53(H) 3.70 - 10.30 10*3/uL LAB HEMATOLOGY METHOD 06/12/2024 3:43 AM EDT [facility] RBC Count 3.17(L) 3.90 - 5.20 10*6/uL LAB HEMATOLOGY METHOD 06/12/2024 3:43 AM EDT [facility] HGB 9.3(L) 11.2 - 15.7 g/dL LAB HEMATOLOGY METHOD 06/12/2024 3:43 AM EDT [facility] HCT 29.4(L) 34.0 - 45.0 % LAB HEMATOLOGY METHOD 06/12/2024 3:43 AM EDT [facility] Platelet Count 393(H) 155 - 369 10*3/uL LAB HEMATOLOGY METHOD 06/12/2024 3:43 AM EDT [facility] MCV 93 79 - 98 fL LAB HEMATOLOGY METHOD 06/12/2024 3:43 AM EDT [facility] MCH 29.3 26.0 - 32.0 pg LAB HEMATOLOGY METHOD 06/12/2024 3:43 AM EDT [facility] MCHC 31.6 30.7 - 35.5 g/dL LAB HEMATOLOGY METHOD 06/12/2024 3:43 AM EDT [facility] RDW 15.2(H) 11.5 - 14.5 % LAB HEMATOLOGY METHOD 06/12/2024 3:43 AM EDT [facility] MPV 9.1 8.8 - 12.5 fL LAB HEMATOLOGY METHOD 06/12/2024 3:43 AM EDT [facility] nRBC 0.0 <=0.0 per 100 WBCs LAB HEMATOLOGY METHOD 06/12/2024 3:43 AM EDT [facility] Differential Type Automated LAB HEMATOLOGY METHOD 06/12/2024 3:43 AM EDT [facility] Neutrophils % 54 % LAB HEMATOLOGY METHOD 06/12/2024 3:43 AM EDT [facility] Lymphocytes % 28 % LAB HEMATOLOGY METHOD 06/12/2024 3:43 AM EDT [facility] Monocytes % 11 % LAB HEMATOLOGY METHOD 06/12/2024 3:43 AM EDT [facility] Eosinophils % 2 % LAB HEMATOLOGY METHOD 06/12/2024 3:43 AM EDT [facility] Basophils % 1 % LAB HEMATOLOGY METHOD 06/12/2024 3:43 AM EDT [facility] Immature Granulocytes % 4 % LAB HEMATOLOGY METHOD 06/12/2024 3:43 AM EDT [facility] Neutrophils Absolute 5.65 1.60 - 6.10 10*3/uL LAB HEMATOLOGY METHOD 06/12/2024 3:43 AM EDT [facility] Lymphocytes Absolute 2.99 1.20 - 3.90 10*3/uL LAB HEMATOLOGY METHOD 06/12/2024 3:43 AM EDT [facility] Monocytes Absolute 1.11(H) 0.30 - 0.90 10*3/uL LAB HEMATOLOGY METHOD 06/12/2024 3:43 AM EDT [facility] Eosinophils Absolute 0.25 0.00 - 0.50 10*3/uL LAB HEMATOLOGY METHOD 06/12/2024 3:43 AM EDT [facility] Basophils Absolute 0.13(H) 0.00 - 0.10 10*3/uL LAB HEMATOLOGY METHOD 06/12/2024 3:43 AM EDT [facility] Immature Granulocytes Absolute 0.40(H) 0.00 - 0.06 10*3/uL LAB HEMATOLOGY METHOD 06/12/2024 3:43 AM EDT [facility] Blood Blood sample taken from central line / Unknown (Central Line) Existing Catheter / Unknown 06/12/2024 3:24 AM EDT 06/12/2024 3:34 AM EDT Narrative [facility] - 06/12/2024 3:43 AM EDT Therapeutic decision making should be based on absolute values, rather than percentages. us Uriah PHILLIP LAB BLOOD ORDERABLES Final Result [facility] [address] [place] [address] * (ABNORMAL) WBC Differential (06/11/2024 4:32 AM EDT) Only the most recent of3 resultswithin the time period is included. Differential Type Automated LAB HEMATOLOGY METHOD 06/11/2024 8:40 AM EDT [facility] Neutrophils % 63 % LAB HEMATOLOGY METHOD 06/11/2024 8:40 AM EDT [facility] Lymphocytes % 23 % LAB HEMATOLOGY METHOD 06/11/2024 8:40 AM EDT [facility] Monocytes % 8 % LAB HEMATOLOGY METHOD 06/11/2024 8:40 AM EDT [facility] Eosinophils % 2 % LAB HEMATOLOGY METHOD 06/11/2024 8:40 AM EDT [facility] Basophils % 1 % LAB HEMATOLOGY METHOD 06/11/2024 8:40 AM EDT [facility] Immature Granulocytes % 3 % LAB HEMATOLOGY METHOD 06/11/2024 8:40 AM EDT [facility] Immature Granulocytes Absolute 0.43(H) 0.00 - 0.06 10*3/uL LAB HEMATOLOGY METHOD 06/11/2024 8:40 AM EDT [facility] Neutrophils Absolute 10.15(H) 1.60 - 6.10 10*3/uL LAB HEMATOLOGY METHOD 06/11/2024 8:40 AM EDT [facility] Lymphocytes Absolute 3.53 1.20 - 3.90 10*3/uL LAB HEMATOLOGY METHOD 06/11/2024 8:40 AM EDT [facility] Monocytes Absolute 1.18(H) 0.30 - 0.90 10*3/uL LAB HEMATOLOGY METHOD 06/11/2024 8:40 AM EDT [facility] Basophils Absolute 0.15(H) 0.00 - 0.10 10*3/uL LAB HEMATOLOGY METHOD 06/11/2024 8:40 AM EDT [facility] Eosinophils Absolute 0.25 0.00 - 0.50 10*3/uL LAB HEMATOLOGY METHOD 06/11/2024 8:40 AM EDT [facility] Blood Venous blood specimen / Unknown 06/11/2024 4:32 AM EDT 06/11/2024 4:32 AM EDT Uriah PHILLIP LAB BLOOD ORDERABLES Final Result [facility] [address] [place] [address] * Lavender Top (06/11/2024 4:32 AM EDT) Only the most recent of2 resultswithin the time period is included. Extra Hold for add-ons 06/11/2024 7:02 AM EDT [facility] Comment:Auto resulted. Blood Venous blood specimen / Unknown 06/11/2024 4:32 AM EDT 06/11/2024 4:32 AM EDT Maite Austin MD LAB BLOOD ORDERABLES Final Resu lt Performing Organization Address [facility] Co de Phone Number [facility] [address] [place] [address] * Light Green Top (06/11/2024 4:32 AM EDT) Extra Hold for add-ons 06/11/2024 7:02 AM EDT [facility] Comment:Auto resulted. Blood Venous blood specimen / Unknown 06/11/2024 4:32 AM EDT 06/11/2024 4:32 AM EDT us Maite Austin MD LAB BLOOD ORDERABLES Final Resu lt Performing Organization Address [facility] de Phone Number [facility] [address] [place] [address] * (ABNORMAL) Procalcitonin (06/11/2024 4:32 AM EDT) Only the most recent of5 resultswithin the time period is included. Procalcitonin, Plasma 0.10(H) <0.09 ng/mL 06/11/2024 8:43 AM EDT [facility] Blood Venous blood specimen / Unknown 06/11/2024 4:32 AM EDT 06/11/2024 4:32 AM EDT Narrative [facility] - 06/11/2024 8:43 AM [...] predict 28 day mortality risk. Please consult [email or web address] for more information. Test performed at [facility]. Uriah PHILLIP LAB BLOOD ORDERABLES Final Result [facility] [address] [place] [address] * (ABNORMAL) Body Fluid Cell Count w/ Diff (06/04/2024 10:17 AM EDT) Color, Body fluid Brown LAB HEMATOLOGY METHOD 06/04/2024 5:36 PM EDT [facility] Appearance, Body fluid Cloudy(A) LAB HEMATOLOGY METHOD 06/04/2024 5:36 PM EDT [facility] Volume, Body fluid 5.0 cc LAB HEMATOLOGY METHOD 06/04/2024 5:36 PM EDT [facility] Fluid Container Specimen received in miscellaneous container LAB HEMATOLOGY METHOD 06/04/2024 5:36 PM EDT [facility] Red Blood Cell Count, Body fluid LAB HEMATOLOGY METHOD 06/04/2024 5:36 PM EDT [facility] Comment:Unable to quantitate due to cell deterioration. Total Nucleated Cell Count, Body fluid LAB HEMATOLOGY METHOD 06/04/2024 5:36 PM EDT [facility] Comment:Unable to quantitate due to cell deterioration. Neutrophils %, Body fluid LAB HEMATOLOGY METHOD 06/04/2024 5:36 PM EDT [facility] Comment:Unable to quantitate due to cell deterioration. Lymphocytes %, Body fluid LAB HEMATOLOGY METHOD 06/04/2024 5:36 PM EDT [facility] Comment:Unable to quantitate due to cell deterioration. Monocytes/Macr ophages %, Body fluid LAB HEMATOLOGY METHOD 06/04/2024 5:36 PM EDT [facility] Comment:Unable to quantitate due to cell deterioration. Eosinophils %, Body fluid LAB HEMATOLOGY METHOD 06/04/2024 5:36 PM EDT [facility] Comment:Unable to quantitate due to cell deterioration. Lining/Mesothe lial Cells %, Body fluid LAB HEMATOLOGY METHOD 06/04/2024 5:36 PM EDT [facility] Comment:Unable to quantitate due to cell deterioration. Neutrophils Absolute (PMN), Body fluid LAB HEMATOLOGY METHOD 06/04/2024 5:36 PM EDT [facility] Comment:Unable to quantitate due to cell deterioration. Lymphocytes Absolute, Body fluid LAB HEMATOLOGY METHOD 06/04/2024 5:36 PM EDT [facility] Comment:Unable to quantitate due to cell deterioration. Monocytes/Macr ophages Absolute, Body fluid LAB HEMATOLOGY METHOD 06/04/2024 5:36 PM EDT [facility] Comment:Unable to quantitate due to cell deterioration. Eosinophils Absolute, Body fluid LAB HEMATOLOGY METHOD 06/04/2024 5:36 PM EDT [facility] Comment:Unable to quantitate due to cell deterioration. Basophils Absolute, Body fluid LAB HEMATOLOGY METHOD 06/04/2024 5:36 PM EDT [facility] Comment:Unable to quantitate due to cell deterioration. Lining/Mesothe lial Cells Absolute, Body fluid LAB HEMATOLOGY METHOD 06/04/2024 5:36 PM EDT [facility] Comment:Unable to quantitate due to cell deterioration. Basophils %, Body fluid LAB HEMATOLOGY METHOD 06/04/2024 5:36 PM EDT [facility] Comment:Unable to quantitate due to cell deterioration. Body Fluid Topography unknown / Unknown Non-blood Collection / Unknown 06/04/2024 10:17 AM EDT 06/04/2024 10:51 AM EDT us Maite Austin MD LAB BODY FLUIDS AND STOOLS ORDERABLES NO SPECIMEN TYPE/SOURCE Final Result [facility] [address] [place] [address] * AFB Culture, Non Respiratory Source and Acid Fast Stain (06/04/2024 10:17 AM EDT) AFB Culture No Mycobacterial Growth at 6 Weeks 07/17/2024 11:29 AM EDT [facility] Acid Fast Stain No acid fast bacilli seen 07/17/2024 11:29 AM EDT [facility] Body Fluid Topography unknown / Unknown Non-blood Collection / Unknown 06/04/2024 10:17 AM EDT 06/04/2024 10:55 AM EDT Maite Austin MD LAB MICROBIOLOGY - GENERAL POLLY MONK Final Result Performing Organization Address City/[facility]/ZIP Co de Phone Number [facility] [address] [place] [address] * (ABNORMAL) Body Fluid Culture and Gram Stain (06/04/2024 10:17 AM EDT) Culture No growth at day 4 2024 7:41 AM EDT [facility] Gram Stain Result No intact cells seen(A) 06/07/2024 7:41 AM EDT [facility] Gram Stain Result No polymorphonuclear leukocytes seen(A) 06/07/2024 7:41 AM EDT [facility] Gram Stain Result No organisms seen(A) 06/07/2024 7:41 AM EDT [facility] Body Fluid Topography unknown / Unknown Non-blood Collection / Unknown 06/04/2024 10:17 AM EDT 06/04/2024 10:55 AM EDT Maite Austin MD LAB MICROBIOLOGY - GENERAL PO[place] MONK Final Result Performing Organization Address City/[facility]/ZIP Co de Phone Number [facility] [address] [place] [address] * CT Guided Drain Placement Peritoneal or [...] the paracolic gutter presenting for drainage PHYSICIANS: pointer machine operator: CRHISTELLE ELMORE MD Secondary dry pan operator: Bry RAD DOSE: Total DLP 413 [...] the paracolic gutter presenting for drainage PHYSICIANS: pointer machine operator: CHRISTELLE ELMORE MD Secondary dry pan operator: None RAD DOSE: Total DLP 413 [...] well, and was transferred back to the [facility] in good condition. Approximately 10 cc of [...] MD on 06/04/2024 12:43 PM Lorena Phillips [employer] IMG CT PROCEDURES Final Resu lt * (ABNORMAL) Renal Function Panel, Plasma (06/02/2024 1:02 AM EDT) Only the most recent of28 resultswithin the time period is included. Glucose, Plasma 507(HH) 74 - 99 mg/dL 06/02/2024 1:47 AM EDT [facility] BUN, Plasma 11 7 - 21 mg/dL 06/02/2024 1:47 AM EDT [facility] Creatinine, Plasma 0.60 0.60 - 1.10 mg/dL 06/02/2024 1:47 AM EDT [facility] BUN/Creatinine Ratio 18 06/02/2024 1:47 AM EDT [facility] Sodium, Plasma 125(L) 136 - 145 mmol/L 06/02/2024 1:47 AM EDT [facility] Potassium, Plasma 4.8 3.6 - 4.9 mmol/L 06/02/2024 1:47 AM EDT [facility] Chloride, Plasma 93(L) 97 - 107 mmol/L 06/02/2024 1:47 AM EDT [facility] CO2, Plasma 20(L) 22 - 29 mmol/L 06/02/2024 1:47 AM EDT [facility] Anion Gap 12 6 - 16 mmol/L 06/02/2024 1:47 AM EDT [facility] Total Calcium, Plasma 7.9(L) 8.9 - 10.2 mg/dL 06/02/2024 1:47 AM EDT [facility] Phosphorus, Plasma 5.8(H) 2.5 - 4.5 mg/dL 06/02/2024 1:47 AM EDT [facility] Albumin, Plasma 2.2(L) 3.5 - 5.2 g/dL 06/02/2024 1:47 AM EDT [facility] eGFRcr 106.8 mL/min/1.7 3m*2 06/02/2024 1:47 AM EDT [facility] Comment:Reported eGFRcr in m L/min/1.73m2 is based the CKD-EPI 2020 equation that does not use a race coefficient. Blood Venous blood specimen / Unknown Venipuncture / Unknown 06/02/2024 1:02 AM EDT 06/02/2024 1:16 AM EDT Lora Llanes [employer] LAB BLOOD ORDERABLES Final Result [facility] [address] [place] [address] * CT Abdomen Pelvis w IV Contrast [...] MD on 06/01/2024 5:03 PM Shola Sheridan [employer] IMG CT PROCEDURES Final Resu lt * Lactate, venous (06/01/2024 8:42 AM EDT) Only the most recent of4 resultswithin the time period is included. Lactate, Venous, Whole Blood 0.9 0.5 - 2.2 mmol/L LAB HEMATOLOGY METHOD 06/01/2024 9:01 AM EDT [facility] Blood Venous blood specimen / Unknown Venipuncture / Unknown 06/01/2024 8:42 AM EDT 06/01/2024 8:59 AM EDT us Shola Sheridan [employer] LAB BLOOD ORDERABLES Final R esult [facility] [address] [place] [address] * [place] NEGATIVE PRESSURE WOUND THERAPY DME >50 SQ [...] 7:00 AM EDT) Only the most recent of11 resultswithin the time period is included. Phosphorus, Plasma 4.1 2.5 - 4.5 mg/dL 05/29/2024 7:43 AM EDT [facility] Blood Venous blood specimen / Unknown Venipuncture / Unknown 05/29/2024 7:00 AM EDT 05/29/2024 7:06 AM EDT Maite Austin MD LAB BLOOD ORDERABLES Final Resu lt Performing Organization Address [facility] Co de Phone Number [facility] [address] [place] [address] * Morphology (05/29/2024 5:35 AM EDT) Only the most recent of11 resultswithin the time period is included. Polychromasia Slight LAB HEMATOLOGY METHOD 05/29/2024 8:34 AM EDT [facility] RBC Morphology Slide Reviewed LAB HEMATOLOGY METHOD 05/29/2024 8:34 AM EDT [facility] Platelet Estimate Platelet smear estimate consistent with automated count LAB HEMATOLOGY METHOD 05/29/2024 8:34 AM EDT [facility] Blood Blood sample taken from central line / Unknown Venipuncture / Unknown 05/29/2024 5:35 AM EDT 05/29/2024 5:56 AM EDT Maite Austin MD LAB BLOOD ORDERABLES Final Resu lt Performing Organization Address [facility] Co de Phone Number [facility] [address] [place] [address] * (ABNORMAL) Manual Differential (05/29/2024 5:35 AM EDT) Only the most recent of11 resultswithin the time period is included. Blasts % 0 % LAB HEMATOLOGY METHOD 05/29/2024 8:34 AM EDT [facility] Promyelocytes % 0 % LAB HEMATOLOGY METHOD 05/29/2024 8:34 AM EDT [facility] Myelocytes % 4 % LAB HEMATOLOGY METHOD 05/29/2024 8:34 AM EDT [facility] Metamyelocytes % 5 % LAB HEMATOLOGY METHOD 05/29/2024 8:34 AM EDT [facility] Neutrophils % 82 % LAB HEMATOLOGY METHOD 05/29/2024 8:34 AM EDT [facility] Lymphocytes % 3 % LAB HEMATOLOGY METHOD 05/29/2024 8:34 AM EDT [facility] Reactive Lymphocytes % 1 % LAB HEMATOLOGY METHOD 05/29/2024 8:34 AM EDT [facility] Monocytes % 3 % LAB HEMATOLOGY METHOD 05/29/2024 8:34 AM EDT [facility] Eosinophils % 2 % LAB HEMATOLOGY METHOD 05/29/2024 8:34 AM EDT [facility] Basophils % 0 % LAB HEMATOLOGY METHOD 05/29/2024 8:34 AM EDT [facility] Blasts Absolute 0.00 10*3/UL LAB HEMATOLOGY METHOD 05/29/2024 8:34 AM EDT [facility] Promyelocytes Absolute 0.00 10*3/uL LAB HEMATOLOGY METHOD 05/29/2024 8:34 AM EDT [facility] Myelocytes Absolute 0.90 10*3/uL LAB HEMATOLOGY METHOD 05/29/2024 8:34 AM EDT [facility] Metamyelocytes Absolute 1.13 10*3/uL LAB HEMATOLOGY METHOD 05/29/2024 8:34 AM EDT [facility] Neutrophils Absolute 18.47(H) 1.60 - 6.10 10*3/uL LAB HEMATOLOGY METHOD 05/29/2024 8:34 AM EDT [facility] Lymphocytes Absolute 0.68(L) 1.20 - 3.90 10*3/uL LAB HEMATOLOGY METHOD 05/29/2024 8:34 AM EDT [facility] Reactive Lymphocytes Absolute 0.23 10*3/uL LAB HEMATOLOGY METHOD 05/29/2024 8:34 AM EDT [facility] Monocytes Absolute 0.68 0.30 - 0.90 10*3/uL LAB HEMATOLOGY METHOD 05/29/2024 8:34 AM EDT [facility] Eosinophils Absolute 0.45 0.00 - 0.50 10*3/uL LAB HEMATOLOGY METHOD 05/29/2024 8:34 AM EDT [facility] Basophils Absolute 0.00 0.00 - 0.10 10*3/uL LAB HEMATOLOGY METHOD 05/29/2024 8:34 AM EDT [facility] Blood Blood sample taken from central line / Unknown Venipuncture / Unknown 05/29/2024 5:35 AM EDT 05/29/2024 5:56 AM EDT us Arora K Reda MD LAB BLOOD ORDERABLES Final Resu lt [facility] [address] [place] [address] * [place] NEGATIVE PRESSURE WOUND THERAPY DME >50 SQ [...] IN CLINIC/BEDSIDE ORDERABLES Fi nal Result * NV CRITICAL CARE, ADDL 30 MIN (05/28/2024 11:39 [...] IN CLINIC/BEDSIDE ORDERABLES Fi nal Result * NV CRITICAL CARE, E/M 30-74 MINUTES (05/27/2024 11:12 AM EDT) Narrative Jose Maritn Traylor DO - 05/27/2024 11:12 AM EDT [...] 6:44 PM EDT) Only the most recent of5 resultswithin the time period is included. us Maite Austin MD BLOOD TRANSFUSION ORDERABLES Fi nal Result * NV CRITICAL CARE, ADDL 30 MIN (05/26/2024 3:17 [...] 3:12 PM EDT) Only the most recent of4 resultswithin the time period is included. ABO/Rh B Positive 05/26/2024 2:21 PM EDT BLO[facility] BANK Antibody Screen Negative 05/26/2024 2:21 PM EDT [facility]LO[facility] Specimen Expiration 05/29/2024 23:59 05/26/2024 2:21 PM EDT [facility] Blood Venous blood specimen / Unknown Venipuncture / Unknown 05/26/2024 3:12 PM EDT 05/26/2024 3:27 PM EDT Maite Austin MD [facility] BLOOD BANK TEST ORDERABLES Final Result Performing Organization Address [facility] Co de Phone Number BLOOD BANK [address] [place] [address], * Prepare Leukocyte Reduced RBC: 1 Units (05/26/2024 2:21 PM EDT) Only the most recent of5 resultswithin the time period is included. Product Code [id number] CH BLOO D BANK Dispense Status Transfused BLOOD BANK Blood Expiration Date [id number] BLOOD BANK Unit Number [id number] CH B LOOD BANK Product Blood Type 7300 BLOOD BANK Blood Type B+ BLOOD BANK Crossmatch Compatible BLOOD BANK Other Maite Austin MD BLOOD BANK PRODUCT ORDERABLES F inal Result Performing Organization Address City/[facility]/ZIP Co de Phone Number BLOOD BANK [address] [place] [address], [place] * (ABNORMAL) Hemoglobin and Hematocrit, Blood (05/25/2024 8:32 PM EDT) Only the most recent of5 resultswithin the time period is included. HGB 7.2(L) 11.2 - 15.7 g/dL LAB HEMATOLOGY METHOD 05/25/2024 8:51 PM EDT [facility] HCT 23.1(L) 34.0 - 45.0 % LAB HEMATOLOGY METHOD 05/25/2024 8:51 PM EDT [facility] Blood Arterial blood specimen / Unknown Venipuncture / Unknown 05/25/2024 8:32 PM EDT 05/25/2024 8:45 PM EDT us Lora Llanes [employer] LAB BLOOD ORDERABLES Final Result [facility] [address] [place] [address] * [place] CRITICAL CARE, E/M 30-74 MINUTES (05/24/2024 11:04 [...] 7:54 PM EDT) Only the most recent of9 resultswithin the time period is included. pH, Arterial 7.29(L) 7.35 - 7.45 LAB HEMATOLOGY METHOD 05/23/2024 8:04 PM EDT [facility] pCO2, Arterial 44 35 - 48 mmHg LAB HEMATOLOGY METHOD 05/23/2024 8:04 PM EDT [facility] pO2, Arterial 182(H) 83 - 108 mmHg LAB HEMATOLOGY METHOD 05/23/2024 8:04 PM EDT [facility] SO2, Measured, Arterial 100(H) 94 - 98 % LAB HEMATOLOGY METHOD 05/23/2024 8:04 PM EDT [facility] Base Excess, Arterial -5.1(L) -2.0 - 3.0 mmol/L LAB HEMATOLOGY METHOD 05/23/2024 8:04 PM EDT [facility] Bicarbonate, Calculated, Arterial 21(L) 22 - 26 mmol/L LAB HEMATOLOGY METHOD 05/23/2024 8:04 PM EDT [facility] Hematocrit, Whole Blood 34.4 34.0 - 45.0 % LAB HEMATOLOGY METHOD 05/23/2024 8:04 PM EDT [facility] Sodium, Whole Blood 133(L) 136 - 145 mmol/L LAB HEMATOLOGY METHOD 05/23/2024 8:04 PM EDT [facility] Potassium, Whole Blood 5.0(H) 3.6 - 4.9 mmol/L LAB HEMATOLOGY METHOD 05/23/2024 8:04 PM EDT [facility] Chloride, Whole Blood 107 97 - 107 mmol/L LAB HEMATOLOGY METHOD 05/23/2024 8:04 PM EDT [facility] Glucose, Whole Blood 266(H) 74 - 99 mg/dL LAB HEMATOLOGY METHOD 05/23/2024 8:04 PM EDT [facility] Ionized Calcium, Whole Blood 4.2(L) 4.6 - 5.1 mg/dL LAB HEMATOLOGY METHOD 05/23/2024 8:04 PM EDT [facility] Lactate, Arterial, Whole Blood 2.0(H) 0.5 - 1.6 mmol/L LAB HEMATOLOGY METHOD 05/23/2024 8:04 PM EDT [facility] Blood Arterial blood specimen / Unknown Arterial Puncture / Unknown 05/23/2024 7:54 PM EDT 05/23/2024 8:02 PM EDT us Maite Austin MD LAB BLOOD ORDERABLES Final Resu lt [facility] [address] [place] [address] * Surgical Pathology Exam (05/23/2024 4:09 PM EDT) Case Report Surgical Pathology Case: [id number] Authorizing Provider: Lidia Troncoso MD Collected: 05/23/2024 1609 Ordering Location: [facility] Received: 05/24/2024 0749 Pathologist: Elvia Morgan MD Specimen: Other (specify site), Left Colon (fresh for permanent) 05/28/2024 11:11 AM EDT [facility] Final Diagnosis LARGE INTESTINE. 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 - INVOLVEMENT OF ONE RESECTION MARGIN. 05/28/2024 11:11 AM EDT [facility] at 1111 EDT Clinical Information Colon perforation (CMS/HCC) [K63.1] s/p 4vCABG on 05/06/24. 05/28/2024 11:11 AM EDT [facility] Gross Description A. LEFT COLON (FRESH FOR PERMANENT) The specimens received fresh, [facility] and consists of a 33 cm [...] x 7.8 cm unremarkable mesentery is submitted. [employer] Monitor sections are submitted as follows: A1: Resection margin A2: Opposite resection margin A3-A4: Area of defect, full-thickness A5: Area of fibrosis and stricturing A6: Area of fibrosis and stricturing A7: Area of fibrosis and stricturing A8: Uninvolved colonic mucosa A9: Junction between involved in uninvolved mucosa A10: Two lymph node candidates, entirely submitted Cold Time: 2h 41m 05/28/2024 11:11 AM EDT [facility] Note: A resident was involved in the service. I attest I examined the relevant preparations for the specimens and confirmed the diagnosis or interpretation. 05/28/2024 11:11 AM EDT [facility] Tissue Topography unknown / Unknown 05/23/2024 4:09 PM EDT 05/24/2024 7:49 AM EDT Comment:Pre-op diagnosis: Colon perforation (CMS/HCC) [K63.1] us Lidia Troncoso MD LAB PATHOLOGY ORDERABLES Final Result [facility] [address] [place] [address] * PB ANESTHESIA NON-TIMED PROCEDURE PLACEHOLDER (05/23/2024 [...] tape. Seldinger technique used Staffing Performed: KERRIE DENTAL COORDINATOR: Mayda Bhatti CRNA Result [facility] Roslyn Villanueva MD ANESTHESIA ORDERABLES Final Re sult * Peripheral IV (05/23/2024 2:39 PM EDT) Narrative Mayda Bhatti CRNA - 05/23/2024 2:39 PM EDT Mayda Bhatti CRNA 05/23/2024 2:40 PM Peripheral IV Inserted by: Mayda Bhatti CRNA Placement Needle size: 18 G Location: hand Site prep: alcohol Technique: anatomical landmarks Attempts: 1 Roslyn Villanueva MD ANESTHESIA ORDERABLES Final Re sult * NV AN ELECTIVE ENDOTRACHEAL AIRWAY, PB ANESTHESIA PLACEHOLDER (05/23/2024 1:43 PM EDT) Mayda Vizcaino CRNA - 05/23/2024 1:43 PM EDT Mayda Bhatti CRNA 05/23/2024 2:13 PM Airway Date/Time: 05/23/2024 1:43 PM Reason: elective Airway not difficult General Information and Staff Patient location during procedure: OR DENTAL COORDINATOR: Mayda Bhatti CRNA Other anesthesia staff: Db [...] 12:41 PM EDT) Only the most recent of2 resultswithin the time period is included. Prothrombin Time 13.6 12.0 - 14.3 sec LAB COAGULATION METHOD 05/23/2024 1:34 PM EDT [facility] INR 1.0 0.9 - 1.1 LAB COAGULATION METHOD 05/23/2024 1:34 PM EDT [facility] Blood Venous blood specimen / Unknown Venipuncture / Unknown 05/23/2024 12:41 PM EDT 05/23/2024 1:04 PM EDT Narrative [facility] - 05/23/2024 1:34 PM EDT OPTIMAL INR RANGES FOR PATIENT ON ORAL ANTICOAGULANT THERAPY Prevention of venous thromboembolism INR 2.0 to 3.0 In patients with heart disease: Atrial fibrillation INR 2.0 to 3.0 Valvular heart disease INR 2.0 to 3.0 Tissue heart valves INR 2.0 to 3.0 Mechanical prosthetic valves INR 2.5 to 3.5 Prevention of recurrent VA INR 2.5 to 3.5 us Maite Austin MD LAB BLOOD ORDERABLES Final Resu lt Performing Organization Address City/[facility]/ZIP Co de Phone Number [facility] [address] [place] [address] * (ABNORMAL) Ionized calcium, whole blood (05/23/2024 11:40 AM EDT) Only the most recent of12 resultswithin the time period is included. Ionized Calcium, Whole Blood 4.3(L) 4.6 - 5.1 mg/dL LAB HEMATOLOGY METHOD 05/23/2024 11:48 AM EDT [facility] Blood Venous blood specimen / Unknown Venipuncture / Unknown 05/23/2024 11:40 AM EDT 05/23/2024 11:47 AM EDT us Reyna Obregon APRN LAB BLOOD ORDERABLES Namrata l Result Performing Organization Address City/[facility]/ZIP Co de Phone Number [facility] [address] [place] [address] * Blood Culture (Aerobic/Anaerobet Set) (05/23/2024 10:20 AM EDT) Only the most recent of3 resultswithin the time period is included. Culture No growth at day 5 ELI 05/28/2024 11:01 AM EDT [facility] Blood Venous blood specimen / Unknown Venipuncture / Unknown 05/23/2024 10:20 AM EDT 05/23/2024 10:28 AM EDT us Maite Austin MD LAB MICROBIOLOGY - GENERAL ORDCaden MONK Final Result [facility] [address] [place] [address] * CT Abdomen Pelvis wo IV Contrast [...] Lorri Lopez MD on 05/22/2024 6:08 PM us Reyna Obregon BEER MAKER IMG CT PROCEDURES Final R esult * NV CRITICAL CARE, E/M 30-74 MINUTES (05/21/2024 11:41 [...] 11:00 AM EDT) Only the most recent of2 resultswithin the time period is included. Culture No growth at day 1 05/22/2024 8:46 AM EDT [facility] Swab (Nares and Jacey Rectal) 05/21/2024 11:00 AM EDT 05/21/2024 11:55 AM EDT us Tom Dyson MD LAB MICROBIOLOGY - GEN ERAL ORDERABLES Final Result Performing Organization Address City/State/[facility] Co de Phone Number [facility] [address] [place] [address] * NV CRITICAL CARE, E/M 30-74 MINUTES (05/20/2024 1:19 [...] - 63 U/L 05/20/2024 2:51 AM EDT [facility] Blood Venous blood specimen / Unknown Venipuncture / Unknown 05/20/2024 2:15 AM EDT 05/20/2024 2:21 AM EDT Marybel Suarez APRN LAB BLOOD ORDERABLES Fin al Result Performing Organization Address City/State/[facility] Co de Phone Number [facility] [address] [place] [address] * NV CRITICAL CARE, E/M 30-74 MINUTES (05/19/2024 2:52 [...] 76 <150 mg/dL 05/19/2024 1:45 PM EDT [facility] Comment: Triglyceride Reference Range (age >17 years): Desirable: <150 mg/dL Borderline high: 150 to 199 mg/dL High: 200 to 499 mg/dL Very high: >499 mg/dL Increased risk of pancreatitis: >1000 mg/dL Fasting greater than or equal to 12 hours? Unknown 05/19/2024 1:45 PM EDT [facility] Blood Venous blood specimen / Unknown Venipuncture / Unknown 05/19/2024 11:42 AM EDT 05/19/2024 12:00 PM EDT us Maite Austin MD LAB BLOOD ORDERABLES Final Resu lt [facility] [address] [place] [address] * NV CRITICAL CARE, ADDL 30 MIN (05/19/2024 2:30 [...] Holt RN Authorized by: Maite Austin MD Universal Protocol: Verbal consent obtained?: Yes Written consent obtained?: Yes Risks and benefits: Risks, benefits and alternatives were discussed Consent given by: Patient and power of collections associate (Written Consent obtained by madalyn VAT/PICC RN [...] Left Location (Adult): Basilic vein (Largest vein, quscdery-wm-uhbt ratio 27%) Site selection rationale: RUE PIV and right radial arterial line. Patient position: Supine Catheter Lot #: [id number] Catheter school clerk: [employer] PICC Provena Catheter placed: Double lumen Catheter size: 4 Fr Catheter trimmed length: 39 Catheter threaded length: 39 Vein placed in: SVC Catheter cm indwellin Catheter cm outside: 0 Placement confirmed by: Shertaisha 3CG technology Pre-procedure: Landmarks identified Ultrasound guidance: [...] placed on end of each lumen hub. Montier limb precaution armband placed on left wrist for PICC precautions while PICC is in place (No sticks/BP's). VAT consult completed. us Maite Austin MD IV THERAPY ORDERABLES Edited Re sult - Final * Comprehensive GI Panel by PCR (05/18/2024 11:47 PM EDT) Campylobacter PCR Result Not Detected Not Detected 05/19/2024 1:41 PM EDT [facility] Plesiomonas shigelloides PCR Result Not Detected Not Detected 05/19/2024 1:41 PM EDT [facility] Salmonella PCR Result Not Detected Not Detected 05/19/2024 1:41 PM EDT [facility] Vibrio species PCR Result Not Detected Not Detected 05/19/2024 1:41 PM EDT [facility] Vibrio cholerae PCR Result Not Detected Not Detected 05/19/2024 1:41 PM EDT [facility] Yersinia enterocolitica PCR Result Not Detected Not Detected 05/19/2024 1:41 PM EDT [facility] Enteroaggregative E. coli (EAEC) PCR Result Not Detected Not Detected 05/19/2024 1:41 PM EDT [facility] Enteropathogenic E. coli (EPEC) PCR Result Not Detected Not Detected 05/19/2024 1:41 PM EDT [facility] Enterotoxigenic E. coli (ETEC) lt/st PCR Result Not Detected Not Detected 05/19/2024 1:41 PM EDT [facility] Shiga-like Toxin-Producing E.coli (STEC) stx1/stx2 PCR Resu Not Detected Not Detected 05/19/2024 1:41 PM EDT [facility] E coli 0157 PCR Result Not Detected Not Detected 05/19/2024 1:41 PM EDT [facility] Shigella/Enteroinvas alexsandra E. coli (EIEC) PCR Result Not Detected Not Detected 05/19/2024 1:41 PM EDT [facility] Cryptosporidium PCR Result Not Detected Not Detected 05/19/2024 1:41 PM EDT [facility] Cyclospora cayetanensis PCR Result Not Detected Not Detected 05/19/2024 1:41 PM EDT [facility] Entamoeba histolytica PCR Result Not Detected Not Detected 05/19/2024 1:41 PM EDT [facility] Giardia duodenalis (aka Giardia lamblia) PCR Result Not Detected Not Detected 05/19/2024 1:41 PM EDT [facility] Adenovirus F 40/41 PCR Result Not Detected Not Detected 05/19/2024 1:41 PM EDT [facility] Astrovirus PCR Result Not Detected Not Detected 05/19/2024 1:41 PM EDT [facility] Norovirus GI/GII PCR Result Not Detected Not Detected 05/19/2024 1:41 PM EDT [facility] Rotavirus A PCR Result Not Detected Not Detected 05/19/2024 1:41 PM EDT [facility] Sapovirus PCR Result Not Detected Not Detected 05/19/2024 1:41 PM EDT [facility] Stool Rectum structure / Unknown Non-blood Collection / Unknown 05/18/2024 11:47 PM EDT 05/19/2024 2:07 AM EDT Narrative [facility] - 05/19/2024 1:41 PM [...] difficile by PCR assay if clinically indicated. [facility] MICROBIOLOGY - GENER AL ORDERABLES Final Result Performing Organization Address [facility] [place] [address] * Clostridiodes (Clostridium) difficile PCR (05/18/2024 11:47 PM EDT) C difficile PCR toxin B gene DNA Result Not Detected Not Detected 05/19/2024 7:36 AM EDT [facility] Stool Rectum structure / Unknown Non-blood Collection / Unknown 05/18/2024 11:47 PM EDT 05/19/2024 2:07 AM EDT Narrative [facility] - 05/19/2024 7:36 AM [...] AL ORDERABLES Final Result Performing Organization Address [facility] [place] [address] * [place] CRITICAL CARE, E/M 30-74 MINUTES (05/18/2024 2:28 [...] Giovanni Shi MD on 05/18/2024 12:14 PM us Maite Austin MD IMG FLUOROSCOPY PROCEDURES Namrata l Result * (ABNORMAL) GGT (05/18/2024 4:00 AM EDT) GGT, Plasma 105(H) 5 - 36 U/L 05/18/2024 5:04 AM EDT [facility] Blood Arterial blood specimen / Unknown Venipuncture / Unknown 05/18/2024 4:00 AM EDT 05/18/2024 4:31 AM EDT Edson Mcclure DO LAB BLOOD ORDERABLES Final R esult Performing Organization Address City/[facility]/ZIP Co de Phone Number [facility] [address] [place] [address] * (ABNORMAL) Amylase, Plasma (05/18/2024 4:00 AM EDT) Pathologist [facility] Amylase 129(H) 27 - 114 U/L 05/18/2024 5:04 AM EDT [facility] Blood Arterial blood specimen / Unknown Venipuncture / Unknown 05/18/2024 4:00 AM EDT 05/18/2024 4:31 AM EDT Edson Mcclure DO LAB BLOOD ORDERABLES Final R [facility] Performing Organization Address City/[facility] [place] [address] * (ABNORMAL) Hepatic function panel (05/18/2024 4:00 AM EDT) Only the most recent of4 resultswithin the time period is included. Conjugated Bilirubin, Plasma 0.6(H) <=0.3 mg/dL 05/18/2024 5:04 AM EDT [facility] Alkaline Phosphatase, Plasma 113(H) 35 - 104 U/L 05/18/2024 5:04 AM EDT [facility] Total Bilirubin, Plasma 1.1 0.2 - 1.1 mg/dL 05/18/2024 5:04 AM EDT [facility] Albumin, Plasma 2.1(L) 3.5 - 5.2 g/dL 05/18/2024 5:04 AM EDT [facility] Total Protein 5.5(L) 6.3 - 7.9 g/dL 05/18/2024 5:04 AM EDT [facility] ALT, Plasma 24 10 - 35 U/L 05/18/2024 5:04 AM EDT [facility] AST, Plasma 53(H) 10 - 35 U/L 05/18/2024 5:04 AM EDT [facility] Blood Arterial blood specimen / Unknown Venipuncture / Unknown 05/18/2024 4:00 AM EDT 05/18/2024 4:31 AM EDT us Edson Mcclure DO LAB BLOOD ORDERABLES Final R esult [facility] [address] [place] [address] * CT Chest w IV Contrast (05/18/2024 [...] Total DLP (Dose-Length Product): 1602.32 mGy.cm (accession [id number]), 1602.32 mGy.cm (accession [id number]). Please note: The reported value represents the [...] Total DLP (Dose-Length Product): 1602.32 mGy.cm (accession [id number]),1602.32 mGy.cm (accession [id number]). Please note: The reported valuerepresents the total [...] APRN IMG CT PROCEDURES Final Result * Methicillin Resistant Staphylococcus aureus (MRSA) by PCR (05/17/2024 10:58 PM EDT) Methicillin Resistant Staphylococcus aureus (MRSA) by PCR Not Detected Not Detected 05/18/2024 12:44 AM EDT [facility] Swab Both anterior nares / Unknown Non-blood Collection / Unknown 05/17/2024 10:58 PM EDT 05/17/2024 11:21 PM EDT Narrative [facility] - 05/18/2024 12:44 AM [...] MICROBIOLOGY - GENER AL ORDERABLES Final Result [facility] [address] [place] [address] * Fungal Blood Culture (05/17/2024 6:13 PM EDT) Culture No Fungal Growth at 6 Weeks 07/07/2024 11:43 AM EDT [facility] Blood Venous blood specimen / Unknown Venipuncture / Unknown 05/17/2024 6:13 PM EDT 05/17/2024 6:32 PM EDT us Lora Llanes BEER MAKER LAB MICROBIOLOGY - GENERAL ORDERABLES Final Result [facility] [address] [place] [address] * Beta Glucan (Fungitel), Serum (05/17/2024 6:13 PM EDT) Beta Glucan (Fungitell) 43 <80 pg/mL 05/19/2024 4:58 PM EDT [facility] (GAMALIEL) Comment: Interpretation: The Fungitell assay does not detect certain fungal species such as the genus Cryptococcus (Rica et al. 1991) which produces very low levels of (1-3)-Ntxy-L-Hkjhyw. The assay also does not detect the Zygomycetes such as Absidia, Mucor and Rhizopus (Stacey et al. 1994) which are not known to produce (1-3)-Eptk-P-Pyoouh. In addition, the yeast phase of Blastomyces dermatitidis produces little (1-3)-Jzra-T-Lfhyiu and may not be detected by the [...] characteristics for these modifications were determined by [facility]. If sample result is greater than 500 pg/mL, physician may order a titer of the sample. Please contact [facility] if you would like to order a retest of this sample to obtain an actual value. Samples are held for 1 week after initial testing date. Testing Performed at: [facility] [id number] [place] [address], [address] [place] [address] [employer] Press Operator: Clayton Mata, PhD [place] ([facility]) IA # [id number] FLAG Interpretation: A = Abnormal, H = High, L = Low Blood Venous blood specimen / Unknown Venipuncture / Unknown 05/17/2024 6:13 PM EDT 05/17/2024 6:27 PM EDT Narrative [facility] (BEAKER) - 05/19/2024 4:58 PM EDT [facility]mediate us Lora Llanes APRN LAB BLOOD ORDERABLES Final Result [facility] (BEAKER) * AFB Blood Culture (05/17/2024 6:13 PM EDT) AFB Culture No Mycobacterial Growth at 6 Weeks 07/06/2024 5:16 PM EDT [facility] Blood Venous blood specimen / Unknown Venipuncture / Unknown 05/17/2024 6:13 PM EDT 05/17/2024 6:32 PM EDT us Lora Llanes APRN LAB MICROBIOLOGY - GENERAL ORDERABLES Final Result [facility] [address] [place] [address] * NV CRITICAL CARE, E/M 30-74 MINUTES (05/17/2024 4:40 [...] - 9.1 min 05/17/2024 3:56 PM EDT [facility] R, Heparinase 7.2 4.3 - 8.3 min 05/17/2024 3:56 PM EDT [facility] K 2.0 0.8 - 2.1 min 05/17/2024 3:56 PM EDT [facility] Angle 72.5 63.0 - 78.0 degrees 05/17/2024 3:56 PM EDT [facility] MA 72.2(H) 52.0 - 69.0 mm 05/17/2024 3:56 PM EDT [facility] MA, Rapid 74.4(H) 52.0 - 70.0 mm 05/17/2024 3:56 PM EDT [facility] MA, Fibrinogen 48.4(H) 15.0 - 32.0 mm 05/17/2024 3:56 PM EDT [facility] FLEV 883.2(H) 278.0 - 581.0 mg/dl 05/17/2024 3:56 PM EDT [facility] Blood Venous blood specimen / Unknown Venipuncture / Unknown 05/17/2024 3:08 PM EDT 05/17/2024 3:26 PM EDT us Maite Austin MD LAB BLOOD ORDERABLES Final Resu lt [facility] [address] [place] [address] * Influenza A,B & Respiratory Syncytial Virus by PCR (05/17/2024 3:08 PM EDT) Influenza A Virus PCR Result Not Detected Not Detected 05/18/2024 7:52 AM EDT [facility] Influenza B Virus PCR Result Not Detected Not Detected 05/18/2024 7:52 AM EDT [facility] Respiratory Syncytial Virus (RSV) PCR Result Not Detected Not Detected 05/18/2024 7:52 AM EDT [facility] Swab Nasopharyngeal structure / Unknown Non-blood Collection / Unknown 05/17/2024 3:08 PM EDT 05/17/2024 3:25 PM EDT us Dulce Alamo APRN LAB MICROBIOLOGY - GENERAL O RDERABLES Final Result Performing Organization Address City/[facility]/ZIP Co de Phone Number [facility] [address] [place] [address] * (ABNORMAL) APTT (05/17/2024 3:08 PM EDT) aPTT 41(H) 25 - 35 sec LAB COAGULATION METHOD 05/17/2024 4:06 PM EDT [facility] Blood Venous blood specimen / Unknown Venipuncture / Unknown 05/17/2024 3:08 PM EDT 05/17/2024 3:37 PM EDT us Maite Austin MD LAB BLOOD ORDERABLES Final Resu lt [facility] [address] [place] [address] * Anti Xa Level Unfractionated Heparin (05/17/2024 3:08 PM EDT) Anti Xa Level Unfractionated Heparin <0.11 <1.00 IU/mL LAB COAGULATION METHOD 05/17/2024 4:06 PM EDT [facility] Blood Venous blood specimen / Unknown Venipuncture / Unknown 05/17/2024 3:08 PM EDT 05/17/2024 3:37 PM EDT Narrative [facility] - 05/17/2024 4:06 PM EDT Therapeutic Range: UFH Full Dose and ACS/VA protocols*: 0.30 - 0.70 IU/mL UFH Low Dose protocol*: 0.25 - 0.50 IU/mL UFH prophylaxis: Not established us Maite Austin MD LAB BLOOD ORDERABLES Final Resu lt Performing Organization Address City/[facility]/ZIP Co de Phone Number [facility] [address] [place] [address] * (ABNORMAL) C-reactive protein (05/17/2024 10:23 AM EDT) CRP, Plasma 225.3(H) <=8.0 mg/L 05/17/2024 2:08 PM EDT [facility] Blood Venous blood specimen / Unknown Venipuncture / Unknown 05/17/2024 10:23 AM EDT 05/17/2024 10:28 AM EDT Narrative [facility] - 05/17/2024 2:08 PM EDT This CRP test is appropriate for assessment of infection, systemic inflammation and/or tissue injury. To assess cardiovascular disease risk order high sensitivity CRP (CRPH). us Trinity Yousif APRN LAB BLOOD ORDERABLES Final Res ult Performing Organization Address [facility] [place] [address] * Potassium (05/16/2024 12:05 PM EDT) Only the most recent of3 resultswithin the time period is included. Potassium, Plasma 4.1 3.6 - 4.9 mmol/L 05/16/2024 2:03 PM EDT [facility] Blood Venous blood specimen / Unknown Venipuncture / Unknown 05/16/2024 12:05 PM EDT 05/16/2024 12:48 PM EDT us Uriah PHILLIP LAB BLOOD ORDERABLES Final Result Performing Organization Address City/[facility]/ZIP Co de Phone Number [facility] [address] [place] [address] * (ABNORMAL) Iron & Total Iron Binding Capacity, Plasma (Includes Transferrin) (05/14/2024 12:10 PM EDT) Pathologist [facility] Iron, Plasma 25(L) 30 - 160 ug/dL 05/14/2024 1:01 PM EDT [facility] Transferrin, Plasma 125(L) 200 - 360 mg/dL 05/14/2024 1:01 PM EDT [facility] Total Iron Binding Capacity, Plasma 156(L) 240 - 450 ug/mL 05/14/2024 1:01 PM EDT [facility] Transferrin Saturation 16 14 - 50 % 05/14/2024 1:01 PM EDT [facility] Blood Venous blood specimen / Unknown Venipuncture / Unknown 05/14/2024 12:10 PM EDT 05/14/2024 12:22 PM EDT us Maite Austin MD LAB BLOOD ORDERABLES Final Resu lt [facility] [address] [place] [address] * (ABNORMAL) Ferritin (05/14/2024 12:10 PM EDT) Pathologist [facility] Ferritin, Serum 1,271(H) 13 - 150 ng/mL 05/14/2024 1:05 PM EDT [facility] Blood Venous blood specimen / Unknown Venipuncture / Unknown 05/14/2024 12:10 PM EDT 05/14/2024 12:22 PM EDT us Maite Austin MD LAB BLOOD ORDERABLES Final Resu lt [facility] [address] [place] [address] * SARS CoV-2/COVID-19 by PCR (05/13/2024 9:34 PM EDT) Pathologist [facility] SARS CoV-2/COVID-1 9 RNA PCR Result Not Detected Not Detected 05/15/2024 7:05 AM EDT [facility] Swab Nasopharyngeal structure / Unknown Non-blood Collection / Unknown 05/13/2024 9:34 PM EDT 05/13/2024 10:34 PM EDT Narrative [facility] - 05/15/2024 7:05 AM [...] testing. This test was performed using the Xceive SARS CoV-2 assay, a PCR-based method. Negative results should be considered presumptive and do not preclude current or future infection obtained through community transmission or other exposures. Negative results must be considered in the context of an individual's recent exposures, history, presence of clinical signs and symptoms consistent with COVID-19. Maite Austin MD LAB [facility]BIOLOGY - [facility] Final Result [facility] [address] [place] [address] * Nasopharyngeal Respiratory Panel (05/13/2024 9:34 PM EDT) Nasopharyngeal Respiratory PCR Interpretation Not Detected for all analytes Not Detected for all analytes 05/14/2024 2:56 AM EDT [facility] Swab Nasopharyngeal structure / Unknown Non-blood Collection / Unknown 05/13/2024 9:34 PM EDT 05/13/2024 10:34 PM EDT Narrative [facility] - 05/14/2024 2:56 AM [...] Respiratory PCR Panel is performed using the [employer] ePlex instrument. This test is FDA approved for use with Nasopharyngeal swabs only. This test is used for clinical purposes. It should not be regarded as investigational or for research. The [facility] Clinical Microbiology Laboratory is certified under the Clinical Laboratory Improvement Amendments of 1988 (CLIA-88) as qualified to perform high complexity clinical laboratory testing. us Maite Austin MD LAB MICROBIOLOGY - [facility] [place] Final Result [facility] [address] [place] [address] * (ABNORMAL) POCT venous blood gas gem (05/09/2024 3:15 PM EDT) pH, Venous 7.42 7.32 - 7.43 05/09/2024 3:17 PM EDT [facility] pCO2, Venous 44 37 - 52 mm Hg 05/09/2024 3:17 PM EDT [facility] pO2, Venous <30 25 - 40 mm Hg 05/09/2024 3:17 PM EDT [facility] SO2, Venous 24(L) 65 - 80 % 05/09/2024 3:17 PM EDT [facility] Base Excess/Deficit, Venous 3.6(H) -2 - 3 mmol/L 05/09/2024 3:17 PM EDT [facility] HCO3, Venous 28.5(H) 22 - 26 mmol/L 05/09/2024 3:17 PM EDT [facility] Hemoglobin, Venous 9.7(L) 11.2 - 15.7 g/dL 05/09/2024 3:17 PM EDT [facility] Hematocrit, Venous 29.0(L) 34.0 - 45.0 % 05/09/2024 3:17 PM EDT [facility] Sodium, Venous 143 136 - 145 mmol/L 05/09/2024 3:17 PM EDT [facility] Potassium, Venous 4.1 3.6 - 4.9 mmol/L 05/09/2024 3:17 PM EDT [facility] POCT Chloride, Venous 107 97 - 107 mmol/L 05/09/2024 3:17 PM EDT [facility] Glucose, Venous 89 74 - 99 mg/dL 05/09/2024 3:17 PM EDT [facility] Ionized Calcium, Venous 4.4(L) 4.6 - 5.1 mg/dL 05/09/2024 3:17 PM EDT [facility] Lactate, Venous 3.3(H) 0.5 - 2.2 mmol/L 05/09/2024 3:17 PM EDT [facility] Body Temperature 37.0 Celsius 05/09/2024 3:17 PM EDT [facility] pH, Temp Corrected, Venous 7.42 7.32 - 7.43 05/09/2024 3:17 PM EDT [facility] pCO2, Temp Corrected, Venous 44 37 - 52 mm Hg 05/09/2024 3:17 PM EDT [facility] Monotype Machinist ID Alka Corona 05/09/2024 3:17 PM EDT [facility] Acknowledged, Notified By RN 05/09/2024 3:17 PM EDT [facility] Critical Notify Time 1515 05/09/2024 3:17 PM EDT [facility] Critical Readback Y 05/09/2024 3:17 PM EDT [facility] Blood, Venous Whole blood specimen / Unknown 05/09/2024 3:15 PM EDT 05/09/2024 3:17 PM EDT us Maite Austin MD LAB POINT OF CARE TE ST DOCKED DEVICE UNSOLICITED RESULTS Final Result Performing Organization Address City/[facility]/ZIP Co de Phone Number [facility] [address] [place], [place] [id number] * BETA HYDROXYBUTYRIC ACID (05/09/2024 11:30 AM EDT) Beta-Hydroxybut yric Acid, Plasma 0.1 <=0.27 mmol/L 05/09/2024 6:19 PM EDT [facility] Blood Venous blood specimen / Unknown Venipuncture / Unknown 05/09/2024 11:30 AM EDT 05/09/2024 12:34 PM EDT us Gregg Burdick MD LAB BLOOD ORDERABLES Final Resu lt [facility] [address] [place] [address] * [place] [facility], ADDL 30 MIN (05/09/2024 11:17 [...] IV (SMARTFORM LINK) (05/09/2024 10:10 AM EDT) Rhona Melendez RN - 05/09/2024 10:10 AM EDT Rhona [...] - 35 U/L 05/09/2024 1:31 PM EDT [facility] Blood Venous blood specimen / Unknown Venipuncture / Unknown 05/09/2024 12:52 AM EDT 05/09/2024 12:57 AM EDT Maite Austin MD LAB BLOOD ORDERABLES Final Resu lt Performing Organization Address [facility] Co de Phone Number [facility] [address] [place] [address] * (ABNORMAL) Alanine Aminotransferase, Plasma (05/09/2024 12:52 AM EDT) ALT, Plasma 84(H) 10 - 35 U/L 05/09/2024 1:31 PM EDT [facility] Blood Venous blood specimen / Unknown Venipuncture / Unknown 05/09/2024 12:52 AM EDT 05/09/2024 12:57 AM EDT Maite Austin MD LAB BLOOD ORDERABLES Final Resu lt Performing Organization Address [facility] [place] [address] * [facility], ADDL 30 MIN (05/08/2024 1:26 [...] IN CLINIC/BEDSIDE ORDERABLES Fi nal Result * [facility], ADDL 30 MIN (05/07/2024 10:11 [...] LAB HEMATOLOGY METHOD 05/07/2024 8:27 AM EDT [facility] pCO2, Mixed Venous 50 37 - 52 mmHg LAB HEMATOLOGY METHOD 05/07/2024 8:27 AM EDT [facility] pO2, Mixed Venous 52(H) 25 - 40 mmHg LAB HEMATOLOGY METHOD 05/07/2024 8:27 AM EDT [facility] SO2, Measured, Mixed Venous 86(H) 65 - 80 % LAB HEMATOLOGY METHOD 05/07/2024 8:27 AM EDT [facility] Bicarbonate, Calculated, Mixed Venous 23 22 - 26 mmol/L LAB HEMATOLOGY METHOD 05/07/2024 8:27 AM EDT [facility] Base Excess, Mixed Venous -3.8(L) -2.0 - 3.0 mmol/L LAB HEMATOLOGY METHOD 05/07/2024 8:27 AM EDT [facility] Hematocrit, Whole Blood 29.8(L) 34.0 - 45.0 % LAB HEMATOLOGY METHOD 05/07/2024 8:27 AM EDT [facility] Sodium, Whole Blood 151(H) 136 - 145 mmol/L LAB HEMATOLOGY METHOD 05/07/2024 8:27 AM EDT [facility] Potassium, Whole Blood 4.5 3.6 - 4.9 mmol/L LAB HEMATOLOGY METHOD 05/07/2024 8:27 AM EDT [facility] Chloride, Whole Blood 119(H) 97 - 107 mmol/L LAB HEMATOLOGY METHOD 05/07/2024 8:27 AM EDT [facility] Ionized Calcium, Whole Blood 4.9 4.6 - 5.1 mg/dL LAB HEMATOLOGY METHOD 05/07/2024 8:27 AM EDT [facility] Glucose, Whole Blood 112(H) 74 - 99 mg/dL LAB HEMATOLOGY METHOD 05/07/2024 8:27 AM EDT [facility] Oxyhemoglobin, Mixed Venous, Whole Blood 83.4(H) 40.0 - 70.0 % LAB HEMATOLOGY METHOD 05/07/2024 8:27 AM EDT [facility] Hemoglobin Reduced, Mixed Venous, Whole Blood 14.2 % LAB HEMATOLOGY METHOD 05/07/2024 8:27 AM EDT [facility] Total Hemoglobin, Mixed Venous, Whole Blood 9.7(L) 11.2 - 15.7 g/dL LAB HEMATOLOGY METHOD 05/07/2024 8:27 AM EDT [facility] Blood Mixed venous blood specimen / Unknown Venipuncture / Unknown 05/07/2024 8:08 AM EDT 05/07/2024 8:23 AM EDT us Maite Austin MD LAB BLOOD ORDERABLES Final Resu lt Performing Organization Address City/[facility] Co de Phone Number [facility] [address] [place] [address] * (ABNORMAL) Hemoglobin (05/07/2024 8:08 AM EDT) HGB 9.9(L) 11.2 - 15.7 g/dL LAB HEMATOLOGY METHOD 05/07/2024 8:46 AM EDT [facility] Blood Venous blood specimen / Unknown Venipuncture / Unknown 05/07/2024 8:08 AM EDT 05/07/2024 8:36 AM EDT us Maite Austin MD LAB BLOOD ORDERABLES Final Resu lt Performing Organization Address [facility] [place] [address] * (ABNORMAL) Hematocrit (05/07/2024 8:08 AM EDT) HCT 29.0(L) 34.0 - 45.0 % LAB HEMATOLOGY METHOD 05/07/2024 8:46 AM EDT [facility] Blood Venous blood specimen / Unknown Venipuncture / Unknown 05/07/2024 8:08 AM EDT 05/07/2024 8:36 AM EDT us Maite Austin MD LAB BLOOD ORDERABLES Final Resu lt Performing Organization Address City/[facility] Co de Phone Number [facility] [address] [place] [address] * (ABNORMAL) POCT arterial blood gas gem (05/07/2024 6:35 AM EDT) pH, Arterial 7.32(L) 7.35 - 7.45 05/07/2024 6:36 AM EDT [facility] pCO2, Arterial 44 35 - 48 mm Hg 05/07/2024 6:36 AM EDT [facility] pO2, Arterial 80(L) 83 - 108 mm Hg 05/07/2024 6:36 AM [facility] SO2, Arterial 98 94 - 98 % 05/07/2024 6:36 AM [facility] FIO2 40.0 % 05/07/2024 6:36 AM [facility] Base Excess, Arterial -3.3(L) -2 - 3 mmol/L 05/07/2024 6:36 AM [facility] HCO3, Arterial 22.7 22 - 26 mmol/L 05/07/2024 6:36 AM [facility] Total Hemoglobin, Arterial, Whole Blood 9.7(L) 11.2 - 15.7 g/dL 05/07/2024 6:36 AM [facility] Hematocrit, Arterial 29.0(L) 34.0 - 45.0 % 05/07/2024 6:36 AM [facility] Sodium, Arterial 151(H) 136 - 145 mmol/L 05/07/2024 6:36 AM [facility] Potassium, Arterial 4.9 3.6 - 4.9 mmol/L 05/07/2024 6:36 AM [facility] Chloride, Whole Blood 118(H) 97 - 107 mmol/L 05/07/2024 6:36 AM [facility] Glucose, Arterial 114(H) 74 - 99 mg/dL 05/07/2024 6:36 AM [facility] Ionized Calcium, Arterial 5.5(H) 4.6 - 5.1 mg/dL 05/07/2024 6:36 AM [facility] Lactate, Arterial 3.9(H) 0.5 - 1.6 mmol/L 05/07/2024 6:36 AM [facility] Body Temperature 38.0 Celsius 05/07/2024 6:36 AM [facility] pH, Temp Corrected, Arterial 7.31(L) 7.35 - 7.45 05/07/2024 6:36 AM [facility] pCO2, Temp Corrected, Arterial 46 35 - 48 mm Hg 05/07/2024 6:36 AM [facility] pO2, Temp Corrected, Arterial 85 83 - 108 mm Hg 05/07/2024 6:36 AM [facility] Monotype Machinist ID Light, Vicky 05/07/2024 6:36 AM EDT [facility] Blood, Arterial Whole blood specimen / Unknown 05/07/2024 6:35 AM EDT 05/07/2024 6:36 AM EDT Maite Austin MD LAB POINT OF CARE TE ST DOCKED DEVICE UNSOLICITED RESULTS Final Result [facility] [address] [place] [address] from Last 3 Months Insurance [employer] MEDICAID Advance Directives * Full Code (Latest [...] 12:06 PM 05/06/2024 8:27 PM Care Teams Senior Research Executive Relationship Specialty Start Date End Date Champ Quiroz MD [address] [facility] [place] [address] PCP - General Internal Medicine 06/29/24
--- OUTSIDE RECORDS SUMMARY | 2024-08-07 11:23 | XMS_ITS | Encounter Summary ---
Author Organization Healthcare Address [address] [place] [address] Care Team Providers Care Ocular Pathologist Name Role Phone Pcp, No Primary Care [...] Description 10/30/2024 10:45 AM EDT Office Visit [facility] General Surgery [address], [address] [place] [address] Lidia Troncoso MD [address] [place] [address] documented as of this encounter Goals Goal [...] documented as of this encounter Care Teams Ocular Pathologist Relationship Specialty Start Date End Date Pcp, [place] [address] PCP - General Family Medicine 04/04/24 06/28/24 documented as of this encounter
--- OUTSIDE RECORDS SUMMARY | 2024-08-07 11:23 | XMS_ITS | Encounter Summary ---
Author Organization Healthcare Address [address] [place] [address] Care Team Providers Care Supervisor Core Drilling Name Role Phone Pcp, No Primary Care [...] any time in the past 12 m [facility], were you homeless or living in [...] Description 10/30/2024 10:45 AM EDT Office Visit [facility] General Surgery [address], [address] [place] [address] Lidia Troncoso MD [address] [place] [address] documented as of this encounter Goals Goal [...] as of this encounter Care Teams Supervisor Core Drilling Relationship Specialty Start Date End Date Pcp, [place] [address] PCP - General Family Medicine 04/04/24 06/28/24 documented as of this encounter
--- OUTSIDE RECORDS SUMMARY | 2024-08-07 11:23 | XMS_ITS | Encounter Summary ---
Author Organization Healthcare Address [address] [place] [address] Care Team Providers Care Polytechnic Registrar Name Role Phone Pcp, No Primary Care [...] [facility] General Surgery [address], [address] [place] [address] Lidia Troncoso MD [address] [place] [address] documented as of this encounter Goals Goal [...] documented as of this encounter Care Teams Polytechnic Registrar Relationship Specialty Start Date End Date Pcp, [place] [address] PCP - General Family Medicine 04/04/24 06/28/24 documented as of this encounter
--- OUTSIDE RECORDS SUMMARY | 2024-08-07 11:23 | XMS_ITS | Encounter Summary ---
Author Organization Healthcare Address [address] [place] [address] Care Team Providers Care Client Reporting Associate Name Role Phone Pcp, No Primary [...] Description 10/30/2024 10:45 AM EDT Office Visit [facility] General Surgery [address], [address] [place] [address] Lidia Troncoso MD [address] [place] [address] documented as of this encounter Goals Goal [...] documented as of this encounter Care Teams Client Reporting Associate Relationship Specialty Start Date End Date Pcp, [place] [address] PCP - General Family Medicine 04/04/24 06/28/24 documented as of this encounter
--- OUTSIDE RECORDS SUMMARY | 2024-08-07 11:23 | XMS_ITS | Encounter Summary ---
Author Organization Healthcare Address [address] [place] [address] Care Team Providers Care Oil Boiler Name Role Phone Pcp, No Primary Care [...] Description 10/30/2024 10:45 AM EDT Office Visit [facility] General Surgery [address], [address] [place] [address] Lidia Troncoso MD [address] [place] [address] documented as of this encounter Goals Goal [...] documented as of this encounter Care Teams Oil Boiler Relationship Specialty Start Date End Date Pcp, [place] [address] PCP - General Family Medicine 04/04/24 06/28/24 documented as of this encounter
--- OUTSIDE RECORDS SUMMARY | 2024-08-07 11:23 | XMS_ITS | Patient Health Record ---
Author Organization [facility] Address [address] [place] [address] Care Team Providers Care Sample Cutter Name Role Phone Michaelle Rivas Primary Care Provider Champ Quiroz Unavailable [phone] Migration, Provider Unavailable Unavailable Allergies Allergen (clinical drug ingredient) Drug/Non Drug Allergy documented on EMR Reaction Allergy Type Onset Date Status LATEX GLOVES (uncoded) Unknown Allergy Active acetaminophen / oxycodone Percocet stomach upset, sweating Drug Allergy Active Medications Medication SIG (Take, Route, Frequency, Duration) Notes Start Date End Date Status Aspirin 81 81 MG 1 tablet Orally Once a day Active Flonase Allergy Relief 50 MCG/ACT 1 spray in each nostril Nasally Twice a day Active Loratadine 10 MG 1 tablet Orally Once a day Active Metoprolol Tartrate 25 MG 1 tablet Orall y Twice a day Active Rosuvastatin Calcium 40 MG 1 tablet Oral ly Once a day for 30 days Active traZODone HCl 50 MG 1 tablet at bedtime as needed Orally Once a day for 30 days 07/30/2024 Active Simethicone 80 MG 1 tablet after meals and at bedtime as needed Orally Four times a day Active hydrOXYzine HCl 10 MG [...] as needed Orally every 6 hrs Active Immunizations Vaccine Route Administration Date Status [...] Problem Status W/U Status Risk Notes Problem 2192184 Primary insomnia (F51.01) Active confirmed Problem 558183406 Psychophysiologi c insomnia (F51.04) Active confirmed Problem 056267956 Essential tremor (G25.0) Active confirmed Problem 4500814 Panlobular emphy sema (J43.1) Active confirmed Problem [id number] Sciatica, left s reagan (M54.32) Active confirmed Problem 690325497823477 Lumbago with sciatica, right side (M54.41) Active confirmed Problem 636194265 Lumbago with sciatica, left side (M54.42) Active confirmed Problem 280532567 Colostomy status (Z93.3) Active confirmed Problem 427635746 Depression with anxiety (F41.8) Active confirmed Problem 62296053 Anxiety (F41.9) Active confirmed Problem 625654923 B12 deficiency (E53.8) Active confirmed Problem 932617587 COPD exacerbatio n (J44.1) Active confirmed Problem 137656393 Atherosclerosis of deering coronary artery of deering heart without angina pectoris (I25.10) Active confirmed Problem 98344841 Skin lesions (L98.9) Active confirmed Vital Signs Heart Rate 100 /min 07/30/2024 Temperature 97.5 degrees Fahrenheit 07/30/2024 Blood pressure diastolic 90 mm Hg 07/30/2024 Height 5 ft 1 in in 07/30/2024 Blood pressure systolic 150 mm Hg 07/30/2024 Weight 116.4 lbs 07/30/2024 BMI 21.99 kg/m2 07/30/2024 Encounters Encounter Location Date Provider Diagnosis [facility] [address] [place] [address] 05/19/2024 Provider Migration Depression with anxiety F41.8 and COPD exacerbation J44.1 [facility] [address] [address] 10/21/2023 Michaelle McNees Pain in joints of ri ght hand M25.541 and Pain in joints of left hand M25.542 [facility] [address] [address] 12/29/2023 Champ Quiroz Acute bronchitis, unspecified organism J20.9 ; Subacute cough R05.2 and Sciatica, left side M54.32 [facility] [address] [address] 04/20/2024 Michaelle McNees Depression with anxi ety F41.8 and COPD exacerbation J44.1 [facility] [address] [place], [place] [address] 07/02/2024 Champ Quiroz Tremor R25.1 ; Atherosclerosis of deering coronary artery of deering heart without angina pectoris I25.10 ; Anxiety F41.9 ; Hospital discharge follow-up Z09 ; Dysuria R30.0 and Colostomy present Z93.3 [facility] [address] [facility] [address] [place], [place] [address] 07/18/2024 Champ Quiroz Pelvic pain in femal e R10.2 and Panlobular emphysema J43.1 [facility] [address] [facility] [address] [place] [address] 07/30/2024 Champ Quiroz C. difficile colitis A04.72 ; Primary insomnia F51.01 ; Colostomy status Z93.3 and Hospital discharge follow-up Z09 [facility] [address] [facility] [address] [place] [address] 09/01/2023 Michaelle McNees [facility] [address] [place] [address] 09/02/2023 Michaelle McNees [facility] [address] [place] [address] 10/21/2023 Michaelle McNees [facility] [address] [place] [address] 11/28/2023 Michaelle McNees [facility] [address] [place] [address] 02/06/2024 Michaelle McNees [facility] [address] [place] [address] 04/20/2024 Michaelle McNees [facility] [address] [place] [address] 07/20/2024 Michaelle McNees Hypokalemia E87.6 [facility] [address] [place] [address] 07/20/2024 Michaelle McNees [facility] [address] [place] [address] 07/24/2024 Michaelle McNees Assessments Encounter Date Diagnosis (ICD Code) Assessment Notes Treatment Notes Treatment Clinical Notes Section Notes 10/21/2023 Pain in joints of right hand (ICD-10 - M25.541) Pain likely related to arthritis. Rest, warm epsom salt soaks, tylenol arthritis prn, prednisone and diclofenac gel as above 10/21/2023 Pain in joints of left hand (ICD-10 - M25.542) 12/29/2023 Acute bronchitis, unspecified organism (ICD-10 - [...] F41.8) 05/19/2024 COPD exacerbation (ICD-10 - J44.1) 07/02/2024 Tremor (ICD-10 - R25.1) Tremor seems to be at baseline, slightly worse with her anxiety issues from hospitalization. Long discussion. Seem to be helpful for her 07/02/2024 Atherosclerosis of deering coronary artery of deering heart without angina pectoris (ICD-10 - I25.10) Status post bypass. On appropriate medication 07/18/2024 Panlobular emphysema (ICD-10 - J43.1) Stable. Off cigarettes, continue inhalers. 07/18/2024 Pelvic pain in female (ICD-10 - R10.2) VEGETABLE SCULLION evaluation. Possible ongoing problems from catheter but will have them take a look 07/20/2024 Hypokalemia (ICD-10 - E87.6) 07/30/2024 Primary insomnia (ICD-10 - F51.01) Trazodone low-dose for insomnia issues. Wellbutrin and citalopram have been helping with anxiety during the day. 07/30/2024 C. difficile colitis (ICD-10 - A04.72) Has finished up vancomycin from hospital discharge. Hard to tell if diarrhea is better because of colostomy status but has no pain, fever or abdominal swelling 07/02/2024 Anxiety (ICD-10 - F41.9) 07/30/2024 Colostomy status (ICD-10 - Z93.3) Discussed that she would be a good candidate for reversal, they are meant to be some imaging done to make sure that her intestinal status is viable 12/29/2023 Sciatica, left side (ICD-10 - M54.32) Injection as noted. I think she would benefit from SI joint evaluation or even lumbar facet injections versus comprehensive pain care evaluation. This referral will be made 07/30/2024 Hospital discharge follow-up (ICD-10 - Z09) Personally reviewed H&P and discharge summary as available from hospital discharge documentation. Reviewed pertinent labs and test done in the hospital. Personally reconciled medication. 07/02/2024 Hospital discharge follow-up (ICD-10 - Z09) [...] 06/17/2006 CT Scan : Abdomen, with contrast CT Scan : Abdomen, with contrast 007 N-cbc 10/13/2006 MRI : Coccyx 06/17/2006 Mammogram : Bilateral 12/08/2021 M-Diarrhea Panel, PCR 12/31/2022 M-Diarrhea Panel, PCR 01/25/2022 Physical Therapy Eval and Treat 10/29/19 Future Test Test Name Order Date BASIC METABOLIC PANEL (19433) 07/23/2024 MAGNESIUM (622) 07/23/2024 Next Appt Details Provider Name:Champ Quiroz, 08/20/2024 03:15:00 PM, [address] [facility], [address], [place], [address], Insurance Providers Payer Name Payer Address Payer Phone Subscriber Number Group Number Insured Name Patient Relationship to Insured Coverage Start Date Coverage End Date [facility] MEDICAID [address] [address] [place] [address] [id number] KYM Rere Reese Self - patient is the [...] replacement therapy depression copd asthma smoker tremors Coronary artery disease, status post CAB G May 08 at [facility] Sepsis, bowel ischemia and colostomy Mar at [facility] Surgical History Surgery Date(Month/Year) lt rotator cuff 2020 rt hand surgery 01/2023 colon resection 04/30/24 Hospitalization History Reason Date(Month/Year) Septic 07/24/2024 [facility] heart attach 04/30/2024-06/28/24 [facility] 01/2022
--- OUTSIDE RECORDS SUMMARY | 2024-08-07 11:23 | XMS_ITS | Encounter Summary ---
Author Organization Healthcare Address [address] [place] [address] Care Team Providers Care Senior Hydrogeologist Name Role Phone Pcp, No Primary Care [...] any time in the past 12 m [facility], were you homeless or [...] 10:45 AM EDT Office Visit [facility] General Surgery [address], [address] [place] [address] Lidia Troncoso MD [address] [place] [address] documented as of this encounter Goals Goal [...] Hydrogeologist Relationship Specialty Start Date End Date Pcp, [place] [address] PCP - General Family Medicine 04/04/24 06/28/24 documented as of this encounter
--- OUTSIDE RECORDS SUMMARY | 2024-08-07 11:23 | XMS_ITS | Encounter Summary ---
Author Organization Healthcare Address [address] [place] [address] Care Team Providers Care Accounting Manager Name Role Phone Pcp, No Primary [...] Description 10/30/2024 10:45 AM EDT Office Visit [facility] General Surgery [address], [address] [place] [address] Lidia Troncoso MD [address] [place] [address] documented as of this encounter Goals Goal [...] documented as of this encounter Care Teams Accounting Manager Relationship Specialty Start Date End Date Pcp, [place] [address] PCP - General Family Medicine 04/04/24 06/28/24 documented as of this encounter
--- OUTSIDE RECORDS SUMMARY | 2024-08-07 11:28 | XMS_ITS | Encounter Summary ---
Author Organization Healthcare Address [address] [place] [address] Care Team Providers Care Operations Executive Name Role Phone Pcp, No Primary Care Provider Champ Butler MD Primary Care Provider + [phone] Encounter Details Date Type Department Care Team (Late st Contact Info) Description 05/29/2024 Results Follow-Up Colorectal Surgery [address] [place] [address] Lidia Troncoso MD [address] [place] [address] Social History Tobacco Use Types Packs/Day Years [...] In the past 12 months has e [employer], [employer], oil, or water [employer] threatened to shut off services in your [...] occasion? Never 07/18/2024 11:09 AM Nelida Chen * Over the past 2 weeks, how often have you been bothered by any of the following problems? Question Answer Date of Assessment Author Little interest or pleasure in doing things Not at all 06/29/2024 2:40 PM EDT O'HairMarva S Feeling down, depressed, or hopeless Several days 06/29/2024 2:40 PM EDT O'HairMarva Patient Health Questionnaire -2 Score 1 06/29/2024 2:40 PM EDT O'HairMarva S * Question Answer Date of Assessment Author Trouble falling or staying asleep, or sleeping too much Not at all 06/29/2024 2:40 PM EDT O'HairMarva S Feeling tired or having edel le energy Not at all 06/29/2024 2:40 PM EDT O'Hair, Marva S Poor appetite or overeating Not at all 06/29/2024 2: 40 PM EDT O'Hair, Marva S Feeling bad about yourself - or that you are a failure or have let yourself or your family down Not at all 06/29/2024 2:40 PM EDT O'HairMarva S Trouble concentrating on things, such as reading the newspaper or watching television Not at all 06/29/2024 2:40 PM EDT O'Hair, Marva S Moving or speaking so slowly that other people could have noticed? Or the opposite - being so fidgety or restless that you have been moving around a lot more than usual. Not at all 06/29/2024 2:40 PM EDT O'HairMarva S Thoughts that you would be better off or hurting yourself in some way Not at all 06/29/2024 2:40 PM EDT O'HairMarva S Patient Health Questionnaire -9 Score 1 06/29/2024 2:40 PM EDT Marva Shaw * Calculated C-SSRS Risk Score (Lifetime/Recent) Answer Date of Assessment Author No Risk Indicated 06/19/2024 8:00 PM EDT Brunilda Dawson RN * If you checked off any problems on this questionnaire so far, Question Answer Date of Assessment Author How difficult have these problems made it for you to do your work, take care of things at home, or get along with other people? Somewhat difficult 06/29/2024 2:40 PM EDT Marva Shaw * Question Answer Date of Assessment Author [...] [facility] [address] [place] [address] Lidia Troncoso MD [address] [place] [address] documented as of this encounter [...] documented as of this encounter Care Teams Operations Executive Relationship Specialty Start Date End Date Pcp, No [address] [place] [address] PCP - General Family Medicine 04/04/24 06/28/24 Champ Quiroz MD [address] [place] [address] PCP - General Internal Medicine 06/29/24 documented as of this encounter
--- OUTSIDE RECORDS SUMMARY | 2024-08-07 11:28 | XMS_ITS | Data Portability ---
Author Organization [facility] [place], [facility] [place] Address [address] [place] [address] Assessment No assessment recorded. Plan of Treatment [...] Organization Details Recorded Time Shoulder Surgery completed [facility] 12/10/2021 16:40:07 section completed [facility] 12/10/2021 16:40:17 Imaging Results None recorded. [...] Updated DateTime 2 162.56 cm 23.5 kg/m2 29746.4 4 g 96.9 [degF] 97 % 97 % 85 /min 112 mm[Hg] 60 mm[Hg] Corinne Tang [facility] [place] 13:30:57 Social History Question Answer Notes LastModified by Organizat ion Details LastModified Time Tobacco Smoking Status Current Every Day Smoker Corinne Tang [facility] [place] 12/10/2021 16:39:59 How Much [...] SNOMED-CT Code Diagnosis ICD10 Code Diagnosis Note [id number] Juany Mathews MD [facility] [address] [facility],[place] [address] 12/14/2021 13:22:57 12/14/2021 15:21:02 Essential tremor 881266693 G25.0 tremor has been under relatively good control with combinatio n of primidone and Inderal, we will watch her hair loss closely, it may be related to her recent COVID infection but if it is related to Inderal in may need to consider gradually weaning this off. Periodic l eg movements of sleep [id number] G47.61 Periodic leg movements are under relatively [...] Doll Member ID Guarantor Name 09/03/2023 1 [facility] (MEDICAID REPLACEMENT - HMO) Rere Reese [id number] Rere Reese Notes Date Note Type Note [...] mg twice a day. Juany Mathews MD [address] [place] [address], [place], [address], [facility] 12/14/2021 15:11:09 OBGyn Episode No OBEpisode recorded.
[2024-08-07 11:39] LABS: Basophils # 0.1 K/mm3 (0-0.2); Basophils % 0.8 % (0.1-2.0); Eosinophils # 0.3 Kmm3 (0.0-0.4); Eosinophils % 1.7 % (0.1-12.0); Hematocrit 39.5 % (37.0-47.0); Hemoglobin 12.7 g/dL (12.2-16.2); Immature Granulocytes % 0.6 %; Lymphocytes # 3.9 K/mm3 (0.7-4.5); Lymphocytes % 22.9 % (10-50); Mean Corpuscular HGB Conc 32.2 g/dL (31.8-35.4); Mean Corpuscular Hemoglobin 29.1 pg (27.0-31.2); Mean Corpuscular Volume 90.4 fl (81-99); Mean Platelet Volume 9.1 fl (7.4-10.4); Monocytes % 5.9 % (1.7-9.3); Neutrophils # 11.5 K/mm3 (1.8-7.8); Neutrophils % 68.1 % (37.0-80.0); Nucleated Red Blood Cells # 0 10^3/uL; Nucleated Red Blood Cells % 0 %; Platelet Count 613 K/mm3 (142-424); Red Blood Count 4.37 M/mm3 (4.20-5.40); Red Cell Distribution Width 14.6 % (11.5-17.5); Red Cell Distribution Width-SD 49.1 fL; White Blood Count 16.9 K/mm3 (4.8-10.8)
--- NOTE | 2024-08-07 11:39 | CT_ITS ---
FINAL REPORT TECHNIQUE: IV contrast enhanced exam This study was performed with techniques to keep radiation doses as low as reasonably achievable, (ALARA). Individualized dose reduction techniques using automated exposure control or adjustment of mA and/or kV according to the patient''s size were employed. CLINICAL HISTORY: lower abd pain, LUQ pain and vomiting COMPARISON: 07/21/2024 FINDINGS: Abdomen: No acute density is seen within the lung bases. Solid abdominal organs are unremarkable. Patient is status postcholecystectomy. No bowel obstruction is present. There is no free air. No fluid collection is seen. Right sided colostomy is present. There is no adenopathy. The small bowel fold thickening has improved of the jejunum. Pelvis: The appendix is not identified. There is persistent advanced wall thickening of the ileum with significant surrounding mesenteric edema. There is improved edema and wall thickening of the Santiago's pouch. Small amount of free fluid is identified. There is no evidence of abscess. IMPRESSION: Advanced ileitis although improved. Improved jejunal wall thickening in the upper abdomen. No bowel obstruction, free air, or abscess. Reviewed, Interpreted and Dictated by Justina Martinez MD Transcribed by Andie Moreira Authenticated and [facility]
[2024-08-07 11:40] LABS: Microscopic, Urine URINE MICROSCOPIC (MICROSCOPIC)
[2024-08-07 11:43] LABS: Appearance,Urine CLEAR (Clear); Bilirubin,Urine Negative (Negative); Blood, Urine Negative (Negative); Color,Urine YELLOW (Yellow); Glucose,Urine (UA) Negative (Negative); Ketones,Urine Negative (Negative); Leukocyte Esterase,Urine Negative (Negative); Nitrate,Urine Negative (Negative); Protein,Urine Negative (Negative); Urobilinogen,Urine 0.2 EU/dl (0.2)
[2024-08-07 11:44] LABS: Albumin Level 3.2 g/dl (3.5-5.0); Chloride 96 mmol/L (98-107); Potassium 3.9 mmoL/L (3.5-5.1); Sodium 137 mmol/L (136-145)
[2024-08-07] MEDS: KETOROLAC 30MG/ML VIAL 15 MG IV (11:46)
[2024-08-07] MEDS: ACETAMINOPHEN 1,000MG/100ML VIAL 1000 MG IV (11:46)
[2024-08-07 11:47] LABS: Alanine Aminotransferase 43 U/L (12-78); Albumin/Globulin Ratio 0.8 (1.1-1.8); Alkaline Phosphatase 181 U/L (38-126); Anion Gap 12.9 mEq/L (5-15); Aspartate Amino Transferase 59 U/L (14-36); Bilirubin,Total 0.2 mg/dl (0.2-1.3); Blood Urea Nitrogen 6 mg/dl (7-17); Carbon Dioxide 32 mmol/L (22.0-30.0); Creatinine Clearance Estimated 82 mL/min (50-200); Estimated Glomerular Filt Rate 87 ml/min (>60); GFR (African American) 106 ML/MIN (>60); Globulin 3.8 g/dL (1.3-3.2)
[2024-08-07 11:48] LABS: Calcium 8.5 mg/dl (8.4-10.2); Glucose 147 mg/dl (74-100)
--- NOTE | 2024-08-07 11:58 | HMH.EDGENADL ---
Discharge Plan Disposition Patient Disposition: Admitted Prescriptions Prescriptions: No Action primidone 50 mg tablet 50 mg PO BID Patient Comments: TAKE 1 TABLET BY MOUTH TWICE DAILY FOR 90 DAYS citalopram 40 mg tablet 40 mg PO DAILY hydroxyzine HCl 10 mg tablet 10 mg PO Q8HP PRN (Reason: Anxiety) Patient Comments: TAKE 1 TABLET BY MOUTH EVERY 8 HOURS NEEDED FOR 15 DAYS bupropion HCl 300 mg tablet extended release 24 hr 300 mg PO DAILY Patient Comments: TAKE 1 TABLET BY MOUTH EVERY 24 HOURS Combivent Respimat 20-100 mcg/actuation mist 1 puff inhalation QIDRT Patient Comments: INHALE 1 PUFF BY MOUTH 4 TIMES DAILY aspirin 81 mg tablet,chewable 81 mg PO DAILY rosuvastatin 40 mg tablet 40 mg PO HS metoprolol tartrate 25 mg tablet 37.5 mg PO BID Patient Comments: TAKE 1 & 1/2 (ONE & ONE-HALF) TABLETS BY MOUTH TWICE DAILY potassium chloride 20 mEq tablet,ER particles/crystals 40 meq PO DAILY vancomycin [Firvanq] 50 mg/mL Recon Soln 125 mg PO QID 10 Days Qty: 100 0RF Referrals Follow up/Referrals: Champ Quiroz MD [Primary Care Provider, Internal Medicine] - See instructions Clinical Impressions Clinical Impression: Ileitis Instructions Patient Instructions: DI for Acute Abdominal Pain Print Language Print Language: Polish Discharge ED Provider: Jack Lizarraga General Adult HPI <Jack Lizarraga MD - Last Filed: 08/07/24 15:07> General Chief complaint: Abdominal Pain Stated complaint: Ref: [facility], Lower Abd. pain, Nausea Time Seen by Provider: 08/07/24 11:17 Mode of Arrival: Ambulatory Source of Information: Patient Description of Symptoms (Recalled from ER Triage Doc. by RN): abdominal pain. pt has a colostomy. colon surgery in may. denies vomiting. states it hurts when she urinates. History of Present Illness HPI narrative: Please note that above description of symptoms, in this electronic medical record under categorization of recalled from ER triage doctor by RN are reflective of an initial nursing assessment, however, is not reflective of my full history and physical exam that was personally taken and clarified. Consequentially, this preceding description of symptoms, which may include the patient's categorized chief complaint in the EMR, do not reflect my personal clinical impression, and the ultimate description of history of present illness and patient stated complaints should be deferred to this section of the note. Unless stated otherwise or congruent with this section of the note, additional signs, symptoms, or incongruence should be interpreted as inaccurate with my clinical impression. Related Data Home Medications ?Medication ?Instructions ?Recorded ?Confirmed citalopram 40 mg tablet 40 mg PO DAILY 12/23/23 07/22/24 primidone 50 mg tablet 50 mg PO BID 12/23/23 07/22/24 bupropion HCl 300 mg 24 hr tablet, 300 mg PO DAILY 05/01/24 07/22/24 extended release hydroxyzine HCl 10 mg tablet 10 mg PO Q8HP PRN Anxiety 05/01/24 07/22/24 ipratropium 20 mcg-albuterol 100 1 puff inhalation QIDRT 05/01/24 07/22/24 mcg/actuation mist for inhalation (Combivent Respimat) aspirin 81 mg chewable tablet 81 mg PO DAILY 07/21/24 07/22/24 metoprolol tartrate 25 mg tablet 37.5 mg PO BID 07/21/24 07/22/24 rosuvastatin 40 mg tablet 40 mg PO HS 07/21/24 07/22/24 potassium chloride 20 mEq 40 meq PO DAILY 07/22/24 07/22/24 tablet,extended release(part/cryst) Previous Rx's ?Medication ?Instructions ?Recorded vancomycin 50 mg/mL oral solution 125 mg (2.5 mL) PO QID 10 days 07/24/24 (Firvanq) #100 mL Allergies Allergy/AdvReac Type Severity Reaction Status Date / Time oxycodone (From Percocet) AdvReac Vomiting Verified 07/21/24 18:47 [facility] <Jack Lizarraga MD - Last Filed: 08/07/24 15:07> [facility] Disclaimer: The information contained in this section may have been updated after the patient was seen, as this information can be updated by other users. Medical History Depression Anxiety History of pleurisy Hemorrhoid Essential tremor Endometriosis Surgical History History of hand surgery History of Hx of cholecystectomy H/O rotator cuff surgery History of hysterectomy Family History Other Essential tremor Family history of heart disease Social History (Updated 07/21/24 @ 22:38 by Tara Fung RN) Smoking Status: Never smoker alcohol intake: never substance use type: denies use current occupational status: unemployed and retired Travel in the last 8 weeks?: Inside the [place] household members: family housing: house caffeine: Yes Have you lived/traveled outside [place] in past 30 days?: No Contact w/someone who lives/traveled outside US past 30 days?: No Exposure to someone with infectious disease in past 14 days?: No Do you have a fever (greater than 100.4 F or 38 C)?: No Have you tested positive for COVID-19?: No Exposed to someone with COVID-19 in past 14 days?: No Do you have a sore throat?: No Do you have a cough?: No Do you have any weakness?: No Do you have any diarrhea?: No Are you experiencing any unusual bleeding?: No Do you have any muscle aches/pain?: No Do you have any abdominal pain?: Yes Are you experiencing loss of taste or smell?: No Other Medical History Have you received the Flu Vaccine for this season: No Have you received the Pneumonia Vaccine: No <Jack Lizarraga MD - Last Filed: 08/07/24 15:07> ROS Obtained: Yes All systems reviewed & no additional complaints except as documented Physical Exam <Jack Lizarraga MD - Last Filed: 08/07/24 15:07> General General appearance: alert and anxious Head Head exam: atraumatic and normocephalic Eye Eye exam: Present normal appearance, PERRL and EOMI Neck Neck exam: Present normal inspection, full ROM and trachea midline Respiratory Respiratory exam: Present normal lung sounds bilaterally; Absent respiratory distress, wheezes, stridor, accessory muscle use or prolonged expiratory phase Cardiovascular Cardiovascular exam: Present normal rhythm and other (Pulses equal symmetric in upper and lower extremities) Abdominal Exam Abdominal exam: Present soft and tenderness; Absent distention, guarding, rebound, rigidity or pulsatile mass Abdominal tenderness: Present LUQ, LLQ, epigastrium, suprapubic and moderate Extremities Exam Extremities exam: Absent edema Neurological Exam Neurological exam: Present alert, oriented X3 and CN II-XII intact; Absent motor sensory deficit Skin Skin exam: Present warm and dry; Absent diaphoresis or erythema Medical Decision Making <Jack Lizarraga MD - Last Filed: 08/07/24 15:07> Medical Records Medical records reviewed: Yes I reviewed the patient's medical records. Screening: Per USPSTF and CDC recommendations, given the prevalence of disease in our region, it is our hospital?s policy to screen for HIV and viral Hepatitis for all patients aged 18 and over and those with ongoing risk factors. Supa Inquiry Pt receiving controlled substance: No Supa was queried for this patient: No Vital Signs: 08/07/24 11:20 08/07/24 12:00 08/07/24 12:31 Temperature 98.1 F Temperature Source Oral Pulse Rate 85 82 Pulse Rate [Right] 94 H Respiratory Rate 20 Blood Pressure 99/71 L 118/73 Blood Pressure [Right Arm] 123/87 Blood Pressure Mean 80 88 Blood Pressure Mean [Right Arm] 99 02 Sat by Pulse Oximetry 96 97 98 Oxygen Delivery Method Room Air 08/07/24 13:00 08/07/24 13:30 08/07/24 14:00 Temperature Temperature Source Pulse Rate 84 83 82 Pulse Rate [Right] Respiratory Rate Blood Pressure 103/72 L 100/74 L 101/74 L Blood Pressure [Right Arm] Blood Pressure Mean 81 Blood Pressure Mean [Right Arm] 02 Sat by Pulse Oximetry 97 98 98 Oxygen Delivery Method 08/07/24 14:30 08/07/24 15:00 08/07/24 15:30 Temperature Temperature Source Pulse Rate 82 83 82 Pulse Rate [Right] Respiratory Rate Blood Pressure 106/64 L 101/72 L 95/62 L Blood Pressure [Right Arm] Blood Pressure Mean 74 Blood Pressure Mean [Right Arm] 02 Sat by Pulse Oximetry 99 96 96 Oxygen Delivery Method 08/07/24 16:00 08/07/24 16:30 08/07/24 17:00 Temperature Temperature Source Pulse Rate 81 75 78 Pulse Rate [Right] Respiratory Rate Blood Pressure 93/62 L 90/61 L 96/55 L Blood Pressure [Right Arm] Blood Pressure Mean 70 70 66 Blood Pressure Mean [Right Arm] 02 Sat by Pulse Oximetry 96 95 94 L Oxygen Delivery Method 08/07/24 19:00 08/07/24 19:59 08/07/24 20:30 Temperature Temperature Source Pulse Rate 86 79 82 Pulse Rate [Right] Respiratory Rate Blood Pressure 105/67 L 94/57 L 115/66 Blood Pressure [Right Arm] Blood Pressure Mean Blood Pressure Mean [Right Arm] 02 Sat by Pulse Oximetry 97 96 95 Oxygen Delivery Method 08/07/24 21:00 Temperature Temperature Source Pulse Rate 85 Pulse Rate [Right] Respiratory Rate Blood Pressure 122/72 Blood Pressure [Right Arm] Blood Pressure Mean Blood Pressure Mean [Right Arm] 02 Sat by Pulse Oximetry 98 Oxygen Delivery Method Lab Data Lab Results 08/07/24 11:25: WBC 16.9 H, RBC 4.37, Hgb 12.7, Hct 39.5, MCV 90.4, MCH 29.1, MCHC 32.2, RDW 14.6, Plt Count 613 H, MPV 9.1, Neut % (Auto) 68.1, Lymph % (Auto) 22.9, Jones % (Auto) 5.9, Eos % (Auto) 1.7, Baso % (Auto) 0.8, Neut # (Auto) 11.5 H, Lymph # (Auto) 3.9, Jones # (Auto) 1.0, Eos # (Auto) 0.3, Baso # (Auto) 0.1, Sodium 137, Potassium 3.9, Chloride 96 L, Carbon Dioxide 32 H, Anion Gap 12.9, BUN 6 L, Creatinine 0.70, Estimated Creat Clear 82, Estimated GFR 87, Est GFR ( Amer) 106, Glucose 147 H, Calcium 8.5, Total Bilirubin 0.2, AST 59 H, ALT 43, Alkaline Phosphatase 181 H, Total Protein 7.0, Albumin 3.2 L, Globulin 3.8 H, Albumin/Globulin Ratio 0.8 L 08/07/24 11:28: PT 10.9, INR 0.98, APTT 26.2, Lactate 2.5 H, Troponin I < 0.01, Lipase 243 08/07/24 11:34: Urine Color Yellow, Urine Appearance Clear, Urine pH 6.0, Ur Specific [place] 1.010, Urine Protein Negative, Urine Glucose (UA) Negative, Urine Ketones Negative, Urine Blood Negative, Urine Nitrate Negative, Urine Bilirubin Negative, Urine Urobilinogen 0.2, Ur Leukocyte Esterase Negative, Urine RBC None, Urine WBC Occasional, Ur Squamous Epith Cells 3-5, Urine Bacteria Trace 08/07/24 15:58: Lactate 1.1 06/24/25 11:25 08/07/24 11:25 Orders (Tests/Meds): ED MEDICATIONS Generic Name Dose Route Start Last Admin Trade Name Freq PRN Reason Stop Dose Admin Hydromorphone HCl 0.5 mg 08/07/24 21:09 Hydromorphone 2mg/Ml Syringe IV 09/06/24 21:08 Q4HP PRN Severe Pain (7-10) Sodium Chloride 1,000 mls @ 75 mls/hr 08/07/24 21:15 Sod Chlor 0.9% 1000ml Bag IV 09/06/24 21:14 .[id number] LINDA Discontinued Medications Generic Name Dose Route Start Last Admin Trade Name Freq PRN Reason Stop Dose Admin Acetaminophen 1,000 mg 08/07/24 11:38 08/07/24 11:46 Acetaminophen 1,000mg/100ml Vial IV 08/07/24 11:39 1,000 mg ONCE ONE Administration Diatrizoate Meglum/Diatrizoate Sod 10 ml 08/07/24 18:37 08/07/24 18:38 Diatrizoate Elda 66% & Diatrizoate Na 10% 30ml Udc PO 08/07/24 18:38 10 ml ONCE ONE Administration Fentanyl Citrate 50 mcg 08/07/24 17:55 08/07/24 17:58 Fentanyl 100mcg/2ml Vial IV 08/07/24 17:56 50 mcg ONCE ONE Administration Hydromorphone HCl 0.5 mg 08/07/24 14:11 08/07/24 14:30 Hydromorphone 2mg/Ml Syringe IV 08/07/24 14:12 0.5 mg ONCE ONE Administration Piperacillin Sod/Tazobactam 100 mls @ 200 mls/hr 08/07/24 13:21 08/07/24 13:41 Sod 4.5 gm/ Sodium Chloride IV 08/07/24 13:50 200 mls/hr ONCE ONE Administration Lactated Ringer's 1,570 mls @ 785 mls/hr 08/07/24 13:23 08/07/24 13:41 Lactated Ringer's 1000 Ml Bag 30 ml/kg infuse over 2 hr (1570 ml) 08/07/24 15:22 785 mls/hr IV Administration .Q2H ONE Iopamidol 75 ml 08/07/24 12:26 08/07/24 12:27 Iopamidol-370 (76%);100ml Bottle IV 08/07/24 12:27 75 ml ONCE ONE Administration Ketorolac Tromethamine 15 mg 08/07/24 11:38 08/07/24 11:46 Ketorolac 30mg/Ml Vial IV 08/07/24 11:39 15 mg ONCE ONE Administration Methylprednisolone Sodium Succinate 125 mg 08/07/24 14:20 08/07/24 14:30 Methylprednisolone Sod Succ 125mg Vial IV 08/07/24 14:21 125 mg ONCE ONE Administration Ondansetron HCl 4 mg 08/07/24 11:58 08/07/24 12:00 Ondansetron 4mg/2ml Vial IV 08/07/24 11:59 4 mg ONCE ONE Administration Sodium Chloride 10 ml 08/07/24 12:26 08/07/24 12:27 Sodium Chloride 0.9% 10ml Syr (Rad Only) IV 08/07/24 12:27 10 ml ONCE ONE Administration ORDERS Category Date Time Status CT abdomen pelvis w con Stat Cat Scan 08/07/24 11:[address] abdomen pelvis wo con Stat Cat Scan 08/07/24 16:23 Completed Basic Metabolic Panel AMLAB Lab 08/08/24 06:00 Ordered Complete Blood Count Auto Diff AMLAB Lab 08/08/24 06:00 Ordered Complete Blood Count Auto Diff Stat Lab 08/07/24 11:25 Completed Comprehensive Metabolic Panel Stat Lab 08/07/24 11:25 Completed Lactic Acid Follow Up (RFLX 1) Stat Lab 08/07/24 15:58 Completed Lactic Acid Stat Lab 08/07/24 11:28 Completed Lipase Stat Lab 08/07/24 11:28 Completed Magnesium AMLAB Lab 08/08/24 06:00 Ordered PT INR [Prothrombin Time INR] Stat Lab 08/07/24 11:28 Completed PTT [Activated Partial Thrombo Time] Stat Lab 08/07/24 11:28 Completed Troponin I Stat Lab 08/07/24 11:28 Completed Urinalysis-Acute [Urinalysis and Microscopic] Stat Lab 08/07/24 11:34 Completed Blood Culture Stat Micro 08/07/24 14:14 Received Medical Decision Narrative: 53-year-old female history of ACS, AR status post coronary artery bypass grafting complicated by what sounds like cardiac arrest, pressor requirement resulting in bowel ischemia status post resection with colostomy bag in place presenting with abdominal pain. She states she has had abdominal pain for weeks. It started getting worse over the past 3 to 4 days. No fevers or chills, but has had vomiting. Nonbloody, nonbilious vomit. Ostomy output has been normal for her, no blood in that. No blood per rectum. Abdominal pain is mostly suprapubic and left-sided. States that she is having some intermittent dysuria as well as suprapubic abdominal pain as well. Came in for further evaluation. Has been taking acetaminophen with some relief. States that her pain is primarily worse when changing positions including sitting from standing and standing from sitting. History was obtained via conversation with patient. On arrival, patient hemodynamically stable, alert, [oriented x4, ][appropriate, ]GCS [15], moving all extremities spontaneously, pupils equal and reactive to light. Full physical exam performed and significant for anxious appearing female who is in no acute distress. Abdomen is soft, nondistended, but moderately tender in the left side of her abdomen as well as her suprapubic area. No signs of peritonitis. Differential includes diverticulitis, obstipation, obstruction, bowel perforation, colitis, enteritis, anastomosis failure, scar tissue pain, pancreatitis, urinary tract infection, among others. Patient placed on continuous cardiac monitoring and continuous pulse ox with initial blood pressure 123/87, heart rate 94, saturation 96% on room air. Patient was given acetaminophen, Toradol, Zofran for symptomatic management[ and correction of underlying abnormalities]. Workup independently interpreted and significant for leukocytosis with mildly elevated lactate. Nonactionable chemistry. On independent interpretation of imaging, patient has free fluid in the abdomen, similar to previous. Mildly inflamed pouch and inflamed ileum. Also has incidentally found distal to proximal intussusception of the right colon. No evidence of obstruction. See radiology read for full review of final results. On reevaluation, patient states she is in more pain. Dilaudid given. Patient also given Zosyn out of concern for intra-abdominal sepsis. [Tissue perfusion reassessment performed within 3 hours, patient mentating, following commands, good capillary refill and hemodynamically stable.] Consulted hospitalist formally, wanted me to contact [facility] where she had her surgery done in order to discuss options in the setting of recurrent abdominal pain and inflammation. [facility] was formally consulted surgeon stated that she wanted to look at patient's scans, but currently in operation. Able to look at it later. Prior to hearing back from surgeon, care handed off to oncoming physician. [employer] disclaimer Much of this encounter note is an electronic christian science practitioner spoken language to printed text. Electronic christian science practitioner of the spoken language may permit errors. Although I have reviewed the note, some errors may still exist. <Ghanshyam Olson MD - Last Filed: 08/07/24 21:11> Vital Signs: 08/07/24 11:20 08/07/24 12:00 08/07/24 12:31 Temperature 98.1 F Temperature Source Oral Pulse Rate 85 82 Pulse Rate [Right] 94 H Respiratory Rate 20 Blood Pressure 99/71 L 118/73 Blood Pressure [Right Arm] 123/87 Blood Pressure Mean 80 88 Blood Pressure Mean [Right Arm] 99 02 Sat by Pulse Oximetry 96 97 98 Oxygen Delivery Method Room Air 08/07/24 13:00 08/07/24 13:30 08/07/24 14:00 Temperature Temperature Source Pulse Rate 84 83 82 Pulse Rate [Right] Respiratory Rate Blood Pressure 103/72 L 100/74 L 101/74 L Blood Pressure [Right Arm] Blood Pressure Mean 81 Blood Pressure Mean [Right Arm] 02 Sat by Pulse Oximetry 97 98 98 Oxygen Delivery Method 08/07/24 14:30 08/07/24 15:00 08/07/24 15:30 Temperature Temperature Source Pulse Rate 82 83 82 Pulse Rate [Right] Respiratory Rate Blood Pressure 106/64 L 101/72 L 95/62 L Blood Pressure [Right Arm] Blood Pressure Mean 74 Blood Pressure Mean [Right Arm] 02 Sat by Pulse Oximetry 99 96 96 Oxygen Delivery Method 08/07/24 16:00 08/07/24 16:30 08/07/24 17:00 Temperature Temperature Source Pulse Rate 81 75 78 Pulse Rate [Right] Respiratory Rate Blood Pressure 93/62 L 90/61 L 96/55 L Blood Pressure [Right Arm] Blood Pressure Mean 70 70 66 Blood Pressure Mean [Right Arm] 02 Sat by Pulse Oximetry 96 95 94 L Oxygen Delivery Method 08/07/24 19:00 08/07/24 19:59 08/07/24 20:30 Temperature Temperature Source Pulse Rate 86 79 82 Pulse Rate [Right] Respiratory Rate Blood Pressure 105/67 L 94/57 L 115/66 Blood Pressure [Right Arm] Blood Pressure Mean Blood Pressure Mean [Right Arm] 02 Sat by Pulse Oximetry 97 96 95 Oxygen Delivery Method 08/07/24 21:00 Temperature Temperature Source Pulse Rate 85 Pulse Rate [Right] Respiratory Rate Blood Pressure 122/72 Blood Pressure [Right Arm] Blood Pressure Mean Blood Pressure Mean [Right Arm] 02 Sat by Pulse Oximetry 98 Oxygen Delivery Method Lab Data Lab Results 08/07/24 11:25: WBC 16.9 H, RBC 4.37, Hgb 12.7, Hct 39.5, MCV 90.4, MCH 29.1, MCHC 32.2, RDW 14.6, Plt Count 613 H, MPV 9.1, Neut % (Auto) 68.1, Lymph % (Auto) 22.9, Jones % (Auto) 5.9, Eos % (Auto) 1.7, Baso % (Auto) 0.8, Neut # (Auto) 11.5 H, Lymph # (Auto) 3.9, Jones # (Auto) 1.0, Eos # (Auto) 0.3, Baso # (Auto) 0.1, Sodium 137, Potassium 3.9, Chloride 96 L, Carbon Dioxide 32 H, Anion Gap 12.9, BUN 6 L, Creatinine 0.70, Estimated Creat Clear 82, Estimated GFR 87, Est GFR ( Amer) 106, Glucose 147 H, Calcium 8.5, Total Bilirubin 0.2, AST 59 H, ALT 43, Alkaline Phosphatase 181 H, Total Protein 7.0, Albumin 3.2 L, Globulin 3.8 H, Albumin/Globulin Ratio 0.8 L 08/07/24 11:28: PT 10.9, INR 0.98, APTT 26.2, Lactate 2.5 H, Troponin I < 0.01, Lipase 243 08/07/24 11:34: Urine Color Yellow, Urine Appearance Clear, Urine pH 6.0, Ur Specific [place] 1.010, Urine Protein Negative, Urine Glucose (UA) Negative, Urine Ketones Negative, Urine Blood Negative, Urine Nitrate Negative, Urine Bilirubin Negative, Urine Urobilinogen 0.2, Ur Leukocyte Esterase Negative, Urine RBC None, Urine WBC Occasional, Ur Squamous Epith Cells 3-5, Urine Bacteria Trace 08/07/24 15:58: Lactate 1.1 Orders (Tests/Meds): ED MEDICATIONS Generic Name Dose Route Start Last Admin Trade Name Fredevika PRN Reason Stop Dose Admin Hydromorphone HCl 0.5 mg 08/07/24 21:09 Hydromorphone 2mg/Ml Syringe IV 09/06/24 21:08 Q4HP PRN Severe Pain (7-10) Sodium Chloride 1,000 mls @ 75 mls/hr 08/07/24 21:15 Sod Chlor 0.9% 1000ml Bag IV 09/06/24 21:14 .[id number] LINDA Discontinued Medications Generic Name Dose Route Start Last Admin Trade Name Freq PRN Reason Stop Dose Admin Acetaminophen 1,000 mg 08/07/24 11:38 08/07/24 11:46 Acetaminophen 1,000mg/100ml Vial IV 08/07/24 11:39 1,000 mg ONCE ONE Administration Diatrizoate Meglum/Diatrizoate Sod 10 ml 08/07/24 18:37 08/07/24 18:38 Diatrizoate Elda 66% & Diatrizoate Na 10% 30ml Udc PO 08/07/24 18:38 10 ml ONCE ONE Administration Fentanyl Citrate 50 mcg 08/07/24 17:55 08/07/24 17:58 Fentanyl 100mcg/2ml Vial IV 08/07/24 17:56 50 mcg ONCE ONE Administration Hydromorphone HCl 0.5 mg 08/07/24 14:11 08/07/24 14:30 Hydromorphone 2mg/Ml Syringe IV 08/07/24 14:12 0.5 mg ONCE ONE Administration Piperacillin Sod/Tazobactam 100 mls @ 200 mls/hr 08/07/24 13:21 08/07/24 13:41 Sod 4.5 gm/ Sodium Chloride IV 08/07/24 13:50 200 mls/hr ONCE ONE Administration Lactated Ringer's 1,570 mls @ 785 mls/hr 08/07/24 13:23 08/07/24 13:41 Lactated Ringer's 1000 Ml Bag 30 ml/kg infuse over 2 hr (1570 ml) 08/07/24 15:22 785 mls/hr IV Administration .Q2H ONE Iopamidol 75 ml 08/07/24 12:26 08/07/24 12:27 Iopamidol-370 (76%);100ml Bottle IV 08/07/24 12:27 75 ml ONCE ONE Administration Ketorolac Tromethamine 15 mg 08/07/24 11:38 08/07/24 11:46 Ketorolac 30mg/Ml Vial IV 08/07/24 11:39 15 mg ONCE ONE Administration Methylprednisolone Sodium Succinate 125 mg 08/07/24 14:20 08/07/24 14:30 Methylprednisolone Sod Succ 125mg Vial IV 08/07/24 14:21 125 mg ONCE ONE Administration Ondansetron HCl 4 mg 08/07/24 11:58 08/07/24 12:00 Ondansetron 4mg/2ml Vial IV 08/07/24 11:59 4 mg ONCE ONE Administration Sodium Chloride 10 ml 08/07/24 12:26 08/07/24 12:27 Sodium Chloride 0.9% 10ml Syr (Rad Only) IV 08/07/24 12:27 10 ml ONCE ONE Administration ORDERS Category Date Time Status CT abdomen pelvis w con Stat Cat Scan 08/07/24 11:[address] abdomen pelvis wo con Stat Cat Scan 08/07/24 16:23 Completed Basic Metabolic Panel AMLAB Lab 08/08/24 06:00 Ordered Complete Blood Count Auto Diff AMLAB Lab 08/08/24 06:00 Ordered Complete Blood Count Auto Diff Stat Lab 08/07/24 11:25 Completed Comprehensive Metabolic Panel Stat Lab 08/07/24 11:25 Completed Lactic Acid Follow Up (RFLX 1) Stat Lab 08/07/24 15:58 Completed Lactic Acid Stat Lab 08/07/24 11:28 Completed Lipase Stat Lab 08/07/24 11:28 Completed Magnesium AMLAB Lab 08/08/24 06:00 Ordered PT INR [Prothrombin Time INR] Stat Lab 08/07/24 11:28 Completed PTT [Activated Partial Thrombo Time] Stat Lab 08/07/24 11:28 Completed Troponin I Stat Lab 08/07/24 11:28 Completed Urinalysis-Acute [Urinalysis and Microscopic] Stat Lab 08/07/24 11:34 Completed Blood Culture Stat Micro 08/07/24 14:14 Received Medical Decision Narrative: .53-year-old female history of ACS, AR status post coronary artery bypass grafting complicated by what sounds like cardiac arrest, pressor requirement resulting in bowel ischemia status post resection with colostomy bag in place presenting with abdominal pain. She states she has had abdominal pain for weeks. It started getting worse over the past 3 to 4 days. No fevers or chills, but has had vomiting. Nonbloody, nonbilious vomit. Ostomy output has been normal for her, no blood in that. No blood per rectum. Abdominal pain is mostly suprapubic and left-sided. States that she is having some intermittent dysuria as well as suprapubic abdominal pain as well. Came in for further evaluation. Has been taking acetaminophen with some relief. States that her pain is primarily worse when changing positions including sitting from standing and standing from sitting. History was obtained via conversation with patient. On arrival, patient hemodynamically stable, alert, [oriented x4, ][appropriate, ]GCS [15], moving all extremities spontaneously, pupils equal and reactive to light. Full physical exam performed and significant for anxious appearing female who is in no acute distress. Abdomen is soft, nondistended, but moderately tender in the left side of her abdomen as well as her suprapubic area. No signs of peritonitis. Differential includes diverticulitis, obstipation, obstruction, bowel perforation, colitis, enteritis, anastomosis failure, scar tissue pain, pancreatitis, urinary tract infection, among others. Patient placed on continuous cardiac monitoring and continuous pulse ox with initial blood pressure 123/87, heart rate 94, saturation 96% on room air. Patient was given acetaminophen, Toradol, Zofran for symptomatic management[ and correction of underlying abnormalities]. Workup independently interpreted and significant for leukocytosis with mildly elevated lactate. Nonactionable chemistry. On independent interpretation of imaging, patient has free fluid in the abdomen, similar to previous. Mildly inflamed pouch and inflamed ileum. Also has incidentally found distal to proximal intussusception of the right colon. No evidence of obstruction. See radiology read for full review of final results. On reevaluation, patient states she is in more pain. Dilaudid given. Patient also given Zosyn out of concern for intra-abdominal sepsis. [Tissue perfusion reassessment performed within 3 hours, patient mentating, following commands, good capillary refill and hemodynamically stable.] Consulted hospitalist formally, wanted me to contact [facility] where she had her surgery done in order to discuss options in the setting of recurrent abdominal pain and inflammation. [facility] was formally consulted surgeon stated that she wanted to look at patient's scans, but currently in operation. Able to look at it later. Prior to hearing back from surgeon, care handed off to oncoming physician. [employer] disclaimer Much of this encounter note is an electronic christian science practitioner spoken language to printed text. Electronic christian science practitioner of the spoken language may permit errors. Although I have reviewed the note, some errors may still exist. Ghanshyam Olson: Upon assumption of care patient is hemodynamically stable. I discussion with [facility], Dr. Scott colorectal surgeon at recommends administering rectal contrast to make sure there is no leaking from the staple line and if not patient can be admitted here if so patient will require emergent surgical evaluation at [facility]. Hematologic labs reviewed by me leukocytosis 16.9, patient is on antibiotics, no MESHA or critical electrolyte abnormality. Post capillary refill check conducted at approximately 3 PM agree with continued volume resuscitation. Rectal contrast enema no evidence of rectal contrast leak. Given this patient has advanced ileitis and the case was subsequently discussed with hospital medicine and the patient will be admitted to their service for continued evaluation at this time. Critical Care <Jack Lizarraga MD - Last Filed: 08/07/24 15:07> Critical Care Time Critical Care Time: No
[2024-08-07 11:59] LABS: Bacteria,Urine Trace /lpf; WBC,Urine Occasional #/hpf (0-3)
[2024-08-07] MEDS: ONDANSETRON 4MG/2ML VIAL 4 MG IV (12:00)
[2024-08-07 12:04] LABS: Activated Partial Thrombo Time 26.2 seconds (22.8-30.6); INR 0.98 (0.9-1.1); Prothrombin Time 10.9 seconds (10.1-12.5)
[2024-08-07 12:08] LABS: Lipase 243 U/L (23-300)
[2024-08-07 12:10] LABS: Lactic Acid 2.5 mmol/L (0.7-2.1)
[2024-08-07 12:23] LABS: Troponin I < 0.01 ng/ml (0.00-0.034)
[2024-08-07] MEDS: IOPAMIDOL-370 (76%);100ML BOTTLE 75 ML IV (12:27)
[2024-08-07] MEDS: SODIUM CHLORIDE 0.9% 10ML SYR (RAD ONLY) 10 ML IV (12:27)
[2024-08-07] MEDS: PIPERACILLIN/TAZO 4.5 GM in 0.9 % SODIUM CHLORIDE 100 ML IV (13:41)
[2024-08-07] MEDS: LACTATED RINGERS 1000ML 1,570 ML 785 ML IV (13:41)
[2024-08-07] MEDS: HYDROMORPHONE 2MG/ML SYRINGE 0.5 MG IV ×2 (14:30→22:38)
[2024-08-07] MEDS: METHYLPREDNISOLONE SOD SUCC 125MG VIAL 125 MG IV (14:30)
--- NOTE | 2024-08-07 14:32 | PC.NURSE ---
Called [facility] per Dr Lizarraga to speak with them about transferring this pt for an ileitis and recurrent abd pain. Images have been powershared and [facility] was on the phone to speak with Dr Lizarraga at this time.
--- NOTE | 2024-08-07 14:39 | PC.NURSE ---
DR ROSE SPEAKING WITH [facility]
[2024-08-07 15:50] LABS: Reflex Lactic Add Lactic Reflex
--- NOTE | 2024-08-07 15:57 | PC.NURSE ---
called back to speak to Dr Olson but was unavailable at this time and we would call [facility] back
[2024-08-07 16:20] LABS: Lactic Acid Follow Up (RFLX 1) 1.1 mmol/L (0.7-2.1)
--- NOTE | 2024-08-07 16:23 | CT_ITS ---
PROCEDURE INFORMATION: Exam: CT Abdomen And Pelvis Without Contrast Exam date and time: 08/07/2024 5:35 PM Age: 53 years old Clinical indication: Other: Screen for rectal contrast leak TECHNIQUE: Imaging protocol: Computed tomography of the abdomen and pelvis without contrast. Radiation optimization: All CT scans at this facility use at least one of these dose optimization techniques: automated exposure control; mA and/or kV adjustment per patient size (includes targeted exams where dose is matched to clinical indication); or iterative reconstruction. Other contrast: Rectal, gatrografin; COMPARISON: CT ABDOMEN PELVIS W CON 08/07/2024 12:27 PM FINDINGS: Liver: Normal. No mass. Gallbladder and biliary ducts: There are surgical clips within the gallbladder fossa. Pancreas: Normal. No ductal dilation. Spleen: Normal. No splenomegaly. Adrenal glands: Normal. No mass. Kidneys and ureters: Residual IV contrast opacifies the urinary collecting system. Stomach and bowel: Postsurgical changes compatible with left hemicolectomy with right upper quadrant colostomy in place. Interval improvement in inflammatory changes of the Luis's pouch. No evidence of rectal contrast leak. Continued thickening inflammatory changes of the distal ileum similar to prior exam. Appendix: No evidence of appendicitis. Intraperitoneal space: Unremarkable. No free air. No significant fluid collection. Vasculature: Moderate calcific atherosclerotic disease of the abdominal aorta without aneurysmal dilatation is present. Lymph nodes: Unremarkable. No enlarged lymph nodes. Urinary bladder: Inflammatory stranding of the urinary bladder wall favors cystitis. Reproductive: Unremarkable as visualized. Bones/joints: Mild loss of intervertebral disc space with degenerative changes involving L4-L5. Soft tissues: Normal. IMPRESSION: 1. Postsurgical changes compatible with left hemicolectomy with right upper quadrant colostomy in place. Interval improvement in inflammatory changes of the Luis's pouch. No evidence of rectal contrast leak. Continued thickening inflammatory changes of the distal ileum similar to prior exam. 2. Inflammatory stranding of the urinary bladder wall favors cystitis.
--- NOTE | 2024-08-07 16:23 | PC.NURSE ---
Called [facility] back to speak with them and They connected with Dr Valero and he was speaking with Dr Olson at this time
--- NOTE | 2024-08-07 16:29 | PC.NURSE ---
DR INFANTE AT BEDSIDE TO UPDATE PT AND FAMILY
[2024-08-07] MEDS: FENTANYL 100MCG/2ML VIAL 50 MCG IV (17:58)
[2024-08-07] MEDS: DIATRIZOATE MEG 66% & DIATRIZOATE NA 10% 30ML UDC 10 ML PO (18:38)
--- NOTE | 2024-08-07 19:55 | PC.NURSE ---
Dr. Street was called for room [address] Olson, he didnt answer a voice mail was left. waiting for call back
--- NOTE | 2024-08-07 21:47 | PC.NURSE ---
Patient arrived to floor via wheelchair from ED at 21:39
[2024-08-07] MEDS: 0.9 % SODIUM CHLORIDE 1000ML 1,000 ML 75 ML IV (22:05)
[2024-08-07] MEDS: METOPROLOL TARTRATE 25MG TABLET 37.5 MG PO (22:37)
[2024-08-07] MEDS: TRAZODONE 50MG TABLET 50 MG PO (22:37)
[2024-08-08] VITALS (7 sets, daily range): BP systolic 90–112; BP diastolic 52–69; PULSE 70–93; RESP 16–22; TEMP 36.4–36.9; O2SAT 95–99
--- NOTE | 2024-08-08 00:52 | P.HP_ITS ---
<Statement entered by Gregg Barth MD - 08/08/24 12:08> Rounded on patient after nurse practitioner. Personally examined and interviewed patient. Agree with exam findings and care plan as documented. Evaluated on morning rounds, white count improved from 16-11.9. Belly pain somewhat better today. Initiating empiric vancomycin due to just finishing course for treatment of C. difficile. Responding to Zosyn as well however. Discussed case with surgery. No plan for intervention at this time. Will monitor advancement of diet and improvement in labs over the next 24 hours. If doing well, anticipate discharge tomorrow with close follow-up with colorectal surgery at . Repeat CBC, CMP, magnesium ordered for the morning. History of Present Illness *Admission Date: 08/07/24 *Reason for visit:: Abdominal pain *History of present illness: This is a 53-year-old female with past medical history of CAD status post CABG in April at and subsequent mesenteric ischemia requiring right hemicolectomy and modified Santiago's pouch with ostomy who presents back to the emergency department today with left lower quadrant pain. She was admitted approximately 2 weeks ago for similar complaint and was found to have pouchitis. States that she was treated here successfully and discharged home. States that she has been doing okay up into the last several days where she developed left lower quadrant pain. She denies any fever or chills. States that she has had nausea and mild dry heaving. She reports normal ostomy output without noted blood. She does also endorse some dysuria. Initial emergency department workup with leukocytosis with a white count of 17, alk phos of 181. Lactic of 2.5 with improvement to 1.1. Initial CT abdomen pelvis imaging notable for advanced ileitis although improved from previous. Given her complicated surgical history was consulted and recommended CT abdomen pelvis with rectal contrast to evaluate for extravasation/anastomosis leak. CT repeated by ED provider and no extravasation noted. Shared decision making was completed by ED provider, hospitalist attending as well as general surgery. Given no surgical emergency at this time is felt she would benefit from IV antibiotic and serial abdominal exams. Shared decision making completed and patient will remain here for above-mentioned therapies. [facility] Disclaimer: The information contained in this section may have been updated after the patient was seen, as this information can be updated by other users. Medical History (Updated 08/08/24 @ 01:04 by TOLU Bajwa) Colostomy in place Heart attack Depression Anxiety History of pleurisy Hemorrhoid Essential tremor Endometriosis Surgical History (Updated 08/08/24 @ 01:06 by TOLU Bajwa) History of hand surgery History of Hx of cholecystectomy H/O rotator cuff surgery History of hysterectomy Family History Other Essential tremor Family history of heart disease Social History Smoking Status: Never smoker alcohol intake: never substance use type: denies use current occupational status: unemployed and retired Travel in the last 8 weeks?: Inside the [place] household members: family housing: house caffeine: Yes Have you lived/traveled outside [place] in past 30 days?: No Contact w/someone who lives/traveled outside US past 30 days?: No Exposure to someone with infectious disease in past 14 days?: No Do you have a fever (greater than 100.4 F or 38 C)?: No Have you tested positive for COVID-19?: No Exposed to someone with COVID-19 in past 14 days?: No Do you have a sore throat?: No Do you have a cough?: No Do you have any weakness?: No Do you have any diarrhea?: No Are you experiencing any unusual bleeding?: No Do you have any muscle aches/pain?: No Do you have any abdominal pain?: Yes Are you experiencing loss of taste or smell?: No Other Medical History Have you received the Flu Vaccine for this season: No Have you received the Pneumonia Vaccine: No Review of Systems Review of Systems Review of systems:: pertinent systems reviewed and negative unless documented below Review of systems (narrative): Negative except for HPI Meds Home Medications and Allergies Home Medications ?Medication ?Instructions ?Recorded ?Confirmed ?Type citalopram 40 mg tablet 40 mg PO DAILY 12/23/2307/16 History primidone 50 mg tablet 50 mg PO BID 12/23/23 History bupropion HCl 300 mg 24 hr tablet, 300 mg PO DAILY 08/07/24 History extended release hydroxyzine HCl 10 mg tablet 10 mg PO Q8HP PRN Anxiety 05/01/24 08/07/24 History ipratropium 20 mcg-albuterol 100 1 puff inhalation QID RT 05/01/24 08/07/24 History mcg/actuation mist for inhalation (Combivent Respimat) aspirin 81 mg chewable tablet 81 mg PO DAILY 07/21/24 08/07/24 History metoprolol tartrate 25 mg tablet 37.5 mg PO BID 08/07/24 History rosuvastatin 40 mg tablet 40 mg PO HS 07/21/24 5 History trazodone 50 mg tablet 50 mg PO HS 08/07/24 5 History New Prescriptions to Start Prescriptions: Allergies Allergy/AdvReac Type Severity Reaction Status Date / Time oxycodone (From Percocet) AdvReac Vomiting Verified 07/21/24 18:47 Exam Data for Last 24 hours Vital signs and Labs for Last 24 Hours: Temp Pulse Resp BP Pulse Ox O2 Del Method 97.8 F 93 H 16 105/57 L 95 Room Air 08/08/24 00:00 08/08/24 00:00 08/08/24 00:00 08/08/24 00:00 08/08/24 00:00 08/08/24 00:00 Laboratory Results - last 24 hr 08/07/24 11:25: WBC 16.9 H, RBC 4.37, Hgb 12.7, Hct 39.5, MCV 90.4, MCH 29.1, MCHC 32.2, RDW 14.6, Plt Count 613 H, MPV 9.1, Neut % (Auto) 68.1, Lymph % (Auto) 22.9, [place] % (Auto) 5.9, Eos % (Auto) 1.7, Baso % (Auto) 0.8, Neut # (Auto) 11.5 H, Lymph # (Auto) 3.9, [place] # (Auto) 1.0, Eos # (Auto) 0.3, Baso # (Auto) 0.1, Sodium 137, Potassium 3.9, Chloride 96 L, Carbon Dioxide 32 H, Anion Gap 12.9, BUN 6 L, Creatinine 0.70, Estimated Creat Clear 82, Estimated GFR 87, Est GFR ( Amer) 106, Glucose 147 H, Calcium 8.5, Total Bilirubin 0.2, AST 59 H, ALT 43, Alkaline Phosphatase 181 H, Total Protein 7.0, Albumin 3.2 L, Globulin 3.8 H, Albumin/Globulin Ratio 0.8 L 08/07/24 11:28: PT 10.9, INR 0.98, APTT 26.2, Lactate 2.5 H, Troponin I < 0.01, Lipase 243 08/07/24 11:34: Urine Color Yellow, Urine Appearance Clear, Urine pH 6.0, Ur Specific [place] 1.010, Urine Protein Negative, Urine Glucose (UA) Negative, Urine Ketones Negative, Urine Blood Negative, Urine Nitrate Negative, Urine Bilirubin Negative, Urine Urobilinogen 0.2, Ur Leukocyte Esterase Negative, Urine RBC None, Urine WBC Occasional, Ur Squamous Epith Cells 3-5, Urine Bacteria Trace 08/07/24 15:58: Lactate 1.1 I & O for Last 24 hours: Intake & Output 08/05/24 08/06/24 08/07/24 08/08/24 23:59 23:59 23:59 23:59 Output Total 200 / 200 Balance -200 / -200 Weight 51.256 kg Constitutional Constitutional: no acute distress *Routine HEENT Exam Head: Present normocephalic Eye: Present EOMI and PERRL ENT: Present mucous membranes moist *Routine Neck Exam Neck: Present supple; Absent lymphadenopathy *Routine Respiratory Exam Respiratory: Present CTA bilaterally *Routine Cardiovascular Exam Cardiovascular: Present RRR *Routine Abdominal Exam Abdominal: Present soft, normoactive bowel sounds and tenderness (LLQ, ostomy in place draining liquid brown stool. Stoma pink and patent. Nonperitonitic. Abdomen soft and compressible, generalized TTP) *Routine Rectal Exam Rectal:: deferred *Routine Genitalia Exam Genitalia:: deferred *Routine Extremities Exam Extremities: Absent cyanosis, clubbing or edema *Routine Skin Exam Skin: Present warm; Absent rash *Routine Neurological Exam Neurological: Present alert and oriented X3 Assessment and Plan *Assessment and plan (1) Ileitis: Status: Acute Category: Medical Code(s): K52.9 - Noninfective gastroenteritis and colitis, unspecified (2) Sepsis: Status: Acute Category: Medical Code(s): A41.9 - Sepsis, unspecified organism (3) Chronic anxiety: Status: Acute Category: Medical Code(s): F41.9 - Anxiety disorder, unspecified (4) CAD (coronary artery disease): Status: Acute Category: Medical Code(s): I25.10 - Atherosclerotic heart disease of [place] coronary artery without angina pectoris (5) History of right hemicolectomy: Status: Acute Category: Surgical Code(s): Z90.49 - Acquired absence of other specified parts of digestive tract Plan #Sepsis #Ileitis 2/2 complication from recent mesenteric ischemia with right hemicolectomy and Luis pouch procedure General Surgery consulted at the time of admission, will follow. Meets criteria for leukocytosis, tachycardia and abdominal source of infection Follow-up blood cultures 30 mL/kg fluid bolus deferred given recent cardiac disease Monitor abdominal exam #History of right hemicolectomy #History of mesenteric ischemia #Status post ostomy Given complicated surgical history, continue abdominal exams. Patient currently at the time of admission is nonperitonitic. Soft and compressible abdomen, generalized TTP #Anxiety Patient self-reports extreme anxiety over current situation. States that this pain is bearable but she became very anxious secondary to recurrent abdominal pain with prior history. Continue patient's home medications namely trazodone, citalopram and bupropion #CAD Status post CABG at April 2024 Continue statin and aspirin
[2024-08-08] MEDS: PIPERACILLIN/TAZO 3.375 GM in 0.9 % SODIUM CHLORIDE 50 ML IV ×3 (04:04→20:09)
[2024-08-08 06:24] LABS: Eosinophils % 0.1 % (0.1-12.0); Neutrophils # 7.9 K/mm3 (1.8-7.8); Nucleated Red Blood Cells # 0 10^3/uL; Nucleated Red Blood Cells % 0 %
[2024-08-08 06:29] LABS: Chloride 100 mmol/L (98-107); Potassium 4.3 mmoL/L (3.5-5.1); Sodium 136 mmol/L (136-145)
[2024-08-08 06:32] LABS: Anion Gap 11.3 mEq/L (5-15); Blood Urea Nitrogen 9 mg/dl (7-17); Carbon Dioxide 29 mmol/L (22.0-30.0); Creatinine Clearance Estimated 87 mL/min (50-200); Estimated Glomerular Filt Rate 104 ml/min (>60); GFR (African American) 126 ML/MIN (>60)
[2024-08-08 06:33] LABS: Calcium 8.1 mg/dl (8.4-10.2); Glucose 116 mg/dl (74-100); Magnesium 1.9 mg/dl (1.6-2.3)
[2024-08-08 06:50] LABS: Basophils % 0.3 % (0.1-2.0); Hematocrit 32.8 % (37.0-47.0); Immature Granulocytes # 0.09 10^3uL; Immature Granulocytes % 0.8 %; Lymphocytes % 25.5 % (10-50); Mean Corpuscular HGB Conc 31.1 g/dL (31.8-35.4); Mean Corpuscular Hemoglobin 28.3 pg (27.0-31.2); Mean Corpuscular Volume 91.1 fl (81-99); Mean Platelet Volume 9.6 fl (7.4-10.4); Monocytes # 0.8 K/mm3 (0.1-1.0); Monocytes % 6.6 % (1.7-9.3); Neutrophils % 66.7 % (37.0-80.0); Platelet Count 476 K/mm3 (142-424); Red Cell Distribution Width 14.6 % (11.5-17.5); Red Cell Distribution Width-SD 49.2 fL; White Blood Count 11.9 K/mm3 (4.8-10.8)
[2024-08-08 06:58] LABS: Hemoglobin 10.2 g/dL (12.2-16.2)
--- NOTE | 2024-08-08 08:07 | EXP.SURG.CON ---
History of Present Illness *Admission Date: 08/07/24 *History of present illness: This is a 53-year-old female who return to the emergency department overnight with increasing abdominal pain. She was recently discharged from this facility with plans for ongoing follow-up at the [facility]. Please see truncated plan from recent general surgery consultation and recent gastroenterology consultation below. Also see admission H&P forwarded from this hospitalization. Currently, she states that she feels better . Recent admission dated July 22, 2024 to July 24, 2024 General Surgery consultation dated July 22, 2024:::: Plan as follows: The patient has shown improvement over the last few hours on current antibiotic therapy. If she continues to improve on antibiotic therapy it is possible that she can ultimately be discharged from this facility with close outpatient follow-up at the [facility]. If she does not continue to show improvement, I recommend immediate transfer back to the [facility] where she recently underwent CABG and subsequent modified Santiago's. Given recent intervention at the [facility] and other comorbid conditions, the patient would not be appropriate for surgical intervention at this facility. Gastroenterology consultation dated July 23, 2024:::: Plan as follows: Lower abdominal pain subsequent to her recent surgery. The patient is clinically improved with antibiotics and pain control. 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 As long as patient is tolerating oral intake, would recommend patient follow back with colorectal surgery. Would consider testing stool for pathogens but the patient is not having any diarrhea presently. Forwarded from admission H&P/emergency department evaluation: This is a 53-year-old female with past medical history of CAD status post CABG in April at and subsequent mesenteric ischemia requiring right hemicolectomy and modified Santiago's pouch with ostomy who presents back to the emergency department today with left lower quadrant pain. She was admitted approximately 2 weeks ago for similar complaint and was found to have pouchitis. States that she was treated here successfully and discharged home. States that she has been doing okay up into the last several days where she developed left lower quadrant pain. She denies any fever or chills. States that she has had nausea and mild dry heaving. She reports normal ostomy output without noted blood. She does also endorse some dysuria. Initial emergency department workup with leukocytosis with a white count of 17, alk phos of 181. Lactic of 2.5 with improvement to 1.1. Initial CT abdomen pelvis imaging notable for advanced ileitis although improved from previous. Given her complicated surgical history [facility] was consulted and recommended CT abdomen pelvis with rectal contrast to evaluate for extravasation/anastomosis leak. CT repeated by ED provider and no extravasation noted. Shared decision making was completed by ED provider, hospitalist attending as well as general surgery. Given no surgical emergency at this time is felt she would benefit from IV antibiotic and serial abdominal exams. Shared decision making completed and patient will remain here for above-mentioned therapies. PFSH PFSH Disclaimer: The information contained in this section may have been updated after the patient was seen, as this information can be updated by other users. Medical History (Updated 08/08/24 @ 08:45 by Luis Livingston MD) Colostomy in place Heart attack Depression Anxiety History of pleurisy Hemorrhoid Essential tremor Endometriosis Surgical History (Updated 08/08/24 @ 08:44 by Luis Livingston MD) History of hand surgery History of Hx of cholecystectomy H/O rotator cuff surgery History of hysterectomy Family History Other Essential tremor Family history of heart disease Social History Smoking Status: Never smoker alcohol intake: never substance use type: denies use current occupational status: unemployed and retired Travel in the last 8 weeks?: Inside the [place] household members: family housing: house caffeine: Yes Have you lived/traveled outside [place] in past 30 days?: No Contact w/someone who lives/traveled outside US past 30 days?: No Exposure to someone with infectious disease in past 14 days?: No Do you have a fever (greater than 100.4 F or 38 C)?: No Have you tested positive for COVID-19?: No Exposed to someone with COVID-19 in past 14 days?: No Do you have a sore throat?: No Do you have a cough?: No Do you have any weakness?: No Do you have any diarrhea?: No Are you experiencing any unusual bleeding?: No Do you have any muscle aches/pain?: No Do you have any abdominal pain?: Yes Are you experiencing loss of taste or smell?: No Meds Home Medications and Allergies Home Medications ?Medication ?Instructions ?Recorded ?Confirmed ?Type citalopram 40 mg tablet 40 mg PO DAILY 12/23/23 08/07/24 History primidone 50 mg tablet 50 mg PO BID 12/23/23 08/07/24 History bupropion HCl 300 mg 24 hr tablet, 300 mg PO DAILY 05/01/24 08/07/24 History extended release hydroxyzine HCl 10 mg tablet 10 mg PO Q8HP PRN Anxiety 05/01/24 08/07/24 History aspirin 81 mg chewable tablet 81 mg PO DAILY 07/21/24 08/07/24 History metoprolol tartrate 25 mg tablet 37.5 mg PO BID 07/21/24 08/07/24 History rosuvastatin 40 mg tablet 40 mg PO HS 07/21/24 08/07/24 History trazodone 50 mg tablet 50 mg PO HSP PRN Insomnia 08/07/24 08/08/24 History potassium chloride 20 mEq 40 meq PO DAILY 08/08/24 08/08/24 History tablet,extended release(part/cryst) New Prescriptions to Start Prescriptions: Allergies Allergy/AdvReac Type Severity Reaction Status Date / Time oxycodone (From Percocet) AdvReac Vomiting Verified 07/21/24 18:47 Exam (Inpt) Vital signs and Labs for Last 24 Hours: Temp Pulse Resp BP Pulse Ox O2 Del Method 97.5 F L 73 17 90/52 L 95 Room Air 08/08/24 04:00 08/08/24 04:00 08/08/24 04:00 08/08/24 04:00 08/08/24 04:00 08/08/24 06:49 Laboratory Results - last 24 hr 08/07/24 11:25: WBC 16.9 H, RBC 4.37, Hgb 12.7, Hct 39.5, MCV 90.4, MCH 29.1, MCHC 32.2, RDW 14.6, Plt Count 613 H, MPV 9.1, Neut % (Auto) 68.1, Lymph % (Auto) 22.9, [place] % (Auto) 5.9, Eos % (Auto) 1.7, Baso % (Auto) 0.8, Neut # (Auto) 11.5 H, Lymph # (Auto) 3.9, [place] # (Auto) 1.0, Eos # (Auto) 0.3, Baso # (Auto) 0.1, Sodium 137, Potassium 3.9, Chloride 96 L, Carbon Dioxide 32 H, Anion Gap 12.9, BUN 6 L, Creatinine 0.70, Estimated Creat Clear 82, Estimated GFR 87, Est GFR ( Amer) 106, Glucose 147 H, Calcium 8.5, Total Bilirubin 0.2, AST 59 H, ALT 43, Alkaline Phosphatase 181 H, Total Protein 7.0, Albumin 3.2 L, Globulin 3.8 H, Albumin/Globulin Ratio 0.8 L 08/07/24 11:28: PT 10.9, INR 0.98, APTT 26.2, Lactate 2.5 H, Troponin I < 0.01, Lipase 243 08/07/24 11:34: Urine Color Yellow, Urine Appearance Clear, Urine pH 6.0, Ur Specific [place] 1.010, Urine Protein Negative, Urine Glucose (UA) Negative, Urine Ketones Negative, Urine Blood Negative, Urine Nitrate Negative, Urine Bilirubin Negative, Urine Urobilinogen 0.2, Ur Leukocyte Esterase Negative, Urine RBC None, Urine WBC Occasional, Ur Squamous Epith Cells 3-5, Urine Bacteria Trace 08/07/24 15:58: Lactate 1.1 08/08/24 05:27: WBC 11.9 H D, RBC 3.60 L, Hgb 10.2 L D, Hct 32.8 L, MCV 91.1, MCH 28.3, MCHC 31.1 L, RDW 14.6, Plt Count 476 H, MPV 9.6, Neut % (Auto) 66.7, Lymph % (Auto) 25.5, [place] % (Auto) 6.6, Eos % (Auto) 0.1, Baso % (Auto) 0.3, Neut # (Auto) 7.9 H, Lymph # (Auto) 3.0, [place] # (Auto) 0.8, Eos # (Auto) 0.0, Baso # (Auto) 0.0, Sodium 136, Potassium 4.3, Chloride 100, Carbon Dioxide 29, Anion Gap 11.3, BUN 9 D, Creatinine 0.60, Estimated Creat Clear 87, Estimated GFR 104, Est GFR ( Amer) 126, Glucose 116 H D, Calcium 8.1 L, Magnesium 1.9 I & O for Labs for Last 24 Hours: Intake & Output 08/05/24 08/06/24 08/07/24 08/08/24 11:59 11:59 11:59 11:59 Output Total 200 / 200 Balance -200 / -200 Weight 125 lb 113 lb Constitutional: no acute distress Respiratory: Absent respiratory distress Cardiac: Absent Tachycardia GI: Present soft Results Labs 08/08/24 05:27 08/08/24 05:27 Labs: Laboratory Results - last 24 hr 08/07/24 11:25: WBC 16.9 H, RBC 4.37, Hgb 12.7, Hct 39.5, MCV 90.4, MCH 29.1, MCHC 32.2, RDW 14.6, Plt Count 613 H, MPV 9.1, Neut % (Auto) 68.1, Lymph % (Auto) 22.9, [place] % (Auto) 5.9, Eos % (Auto) 1.7, Baso % (Auto) 0.8, Neut # (Auto) 11.5 H, Lymph # (Auto) 3.9, [place] # (Auto) 1.0, Eos # (Auto) 0.3, Baso # (Auto) 0.1, Sodium 137, Potassium 3.9, Chloride 96 L, Carbon Dioxide 32 H, Anion Gap 12.9, BUN 6 L, Creatinine 0.70, Estimated Creat Clear 82, Estimated GFR 87, Est GFR ( Amer) 106, Glucose 147 H, Calcium 8.5, Total Bilirubin 0.2, AST 59 H, ALT 43, Alkaline Phosphatase 181 H, Total Protein 7.0, Albumin 3.2 L, Globulin 3.8 H, Albumin/Globulin Ratio 0.8 L 08/07/24 11:28: PT 10.9, INR 0.98, APTT 26.2, Lactate 2.5 H, Troponin I < 0.01, Lipase 243 08/07/24 11:34: Urine Color Yellow, Urine Appearance Clear, Urine pH 6.0, Ur Specific [place] 1.010, Urine Protein Negative, Urine Glucose (UA) Negative, Urine Ketones Negative, Urine Blood Negative, Urine Nitrate Negative, Urine Bilirubin Negative, Urine Urobilinogen 0.2, Ur Leukocyte Esterase Negative, Urine RBC None, Urine WBC Occasional, Ur Squamous Epith Cells 3-5, Urine Bacteria Trace 08/07/24 15:58: Lactate 1.1 08/08/24 05:27: WBC 11.9 H D, RBC 3.60 L, Hgb 10.2 L D, Hct 32.8 L, MCV 91.1, MCH 28.3, MCHC 31.1 L, RDW 14.6, Plt Count 476 H, MPV 9.6, Neut % (Auto) 66.7, Lymph % (Auto) 25.5, [place] % (Auto) 6.6, Eos % (Auto) 0.1, Baso % (Auto) 0.3, Neut # (Auto) 7.9 H, Lymph # (Auto) 3.0, [place] # (Auto) 0.8, Eos # (Auto) 0.0, Baso # (Auto) 0.0, Sodium 136, Potassium 4.3, Chloride 100, Carbon Dioxide 29, Anion Gap 11.3, BUN 9 D, Creatinine 0.60, Estimated Creat Clear 87, Estimated GFR 104, Est GFR ( Amer) 126, Glucose 116 H D, Calcium 8.1 L, Magnesium 1.9 Assessment and Plan *Assessment and plan (1) Ileitis: Status: Acute Category: Medical Code(s): K52.9 - Noninfective gastroenteritis and colitis, unspecified (2) Pouchitis: Problem Comment: Lower abdominal/pelvic inflammatory changes status post modified Santiago's Status: Acute Category: Medical Code(s): K91.850 - Pouchitis Plan: Radiographic improvement versus prior (3) Leukocytosis: Status: Acute Qualifiers: Leukocytosis type: unspecified Qualified Code(s): D72.829 - Elevated white blood cell count, unspecified Category: Medical Code(s): D72.829 - Elevated white blood cell count, unspecified Plan: Improving (4) History of right hemicolectomy: Status: Acute Category: Surgical Code(s): Z90.49 - Acquired absence of other specified parts of digestive tract (5) History of coronary artery bypass graft: Status: Acute Category: Surgical Code(s): Z95.1 - Presence of aortocoronary bypass graft Plan Once again, the patient has shown improvement over the last few hours on current antibiotic therapy. If she continues to improve on antibiotic therapy it is possible that she can ultimately be discharged from this facility with close outpatient follow-up at the [facility]. If she does not continue to show improvement, I recommend immediate transfer back to the [facility] where she recently underwent CABG and subsequent modified Santiago's. Given recent intervention at the [facility] and other comorbid conditions, the patient would not be appropriate for surgical intervention at this facility.
--- NOTE | 2024-08-08 08:16 | HMH.PHAINT1 ---
Pharmacy Intervention Comments: MEDICATION RECONCILIATION COMPLETED ON PATIENT USING EXTERNAL FILL HISTORY FROM PHARMACY. -STANISLAW CACERES, KEITHD
[2024-08-08] MEDS: ASPIRIN 81MG CHEWABLE TABLET 81 MG PO (08:57)
[2024-08-08] MEDS: METOPROLOL TARTRATE 25MG TABLET 37.5 MG PO ×2 (08:57→20:09)
[2024-08-08] MEDS: buPROPion HCl SR 150MG TAB 150 MG PO ×2 (08:57→20:09)
[2024-08-08] MEDS: CITALOPRAM 40MG TABLET 40 MG PO (08:57)
[2024-08-08] MEDS: PRIMIDONE 50MG TABLET 50 MG PO ×2 (08:57→20:09)
[2024-08-08] MEDS: HYDROMORPHONE 2MG/ML SYRINGE 0.5 MG IV ×3 (09:03→20:10)
[2024-08-08] MEDS: 0.9 % SODIUM CHLORIDE 1000ML 1,000 ML 75 ML IV (09:09)
[2024-08-08] MEDS: VANCOMYCIN HCL 50MG/ML 150ML KIT 125 MG PO ×3 (12:11→20:09)
--- NOTE | 2024-08-08 15:52 | PC.NURSE ---
Patient up ad sherry and to the restroom several times today.
--- NOTE | 2024-08-08 17:20 | PC.NURSE ---
Aox 4, up with assistance and states she will call out when needing help, on RA, 20g r ac sl, refused bed alarm, r colostomy, got pain meds twice on my shift.
[2024-08-08] MEDS: ONDANSETRON 4MG/2ML VIAL 4 MG IV (19:40)
[2024-08-08] MEDS: TRAZODONE 50MG TABLET 50 MG PO (20:09)
[2024-08-08] MEDS: ATORVASTATIN 40MG TABLET 40 MG PO (20:09)
[2024-08-08] MEDS: SIMETHICONE 80MG CHEWABLE TABLET 80 MG PO (22:35)
[2024-08-08] MEDS: KETOROLAC 10MG TABLET 10 MG PO (22:50)
[2024-08-09] VITALS: BP 90/62; PULSE 75; PULSE 80; RESP 15; TEMP 36.8; O2SAT 96
[2024-08-09] MEDS: HYDROMORPHONE 2MG/ML SYRINGE 0.5 MG IV ×2 (00:25→05:10)
--- NOTE | 2024-08-09 03:55 | PC.NURSE ---
Addendum entered by Andreea Stevenson RN 08/09/24 05:10: Patient stated that after having a bowel movement (emptied/documented accordingly) her abdominal pain eased this morning. Original Note: Patient is alert and oriented x4. She was observed to have both wakeful periods and resting periods (eyes closed, respirations even/unlabored) throughout the night. Patient has complained of moderate to severe right lower quadrant abdominal pain, of which she described as stabbing and specifically located beneath her ostomy site. Intravenous Dilautid and oral Toradol were administered per MAR for pain relief; Dilautid tended to help with her the most, but the Toradol did not. Moist heat application was attempted as an additional method, but did not provide any pain relief either. Simethicone was given for gas discomfort complaint, and Zofran was given for nausea complaint; these medications provided satisfactory relief, stated by the patient. Scheduled medications were administered per MAR. Patient has had minimal stool output via ostomy this shift. Patient was encouraged to consume soft, bland foods at her own discretion this shift due to complaint of nausea. Bowel sounds are active in all four quadrants. She ambulates independently in her room/to the bathroom without any difficulties. Patient continues to pass flatulence and belch. At this time, the patient is resting in bed without any further complaints. No new needs thus far. Call light within reach. Home medications locked in [facility].
[2024-08-09 04:00] VITALS: BP 122/64; PULSE 70; RESP 16; TEMP 36.5; O2SAT 95; BMI 20.2
[2024-08-09] MEDS: PIPERACILLIN/TAZO 3.375 GM in 0.9 % SODIUM CHLORIDE 50 ML IV ×2 (05:00→12:38)
--- NOTE | 2024-08-09 06:39 | EXP.SURG.PN ---
Subjective Patient reports: no new complaints and still having pain Narrative: She states that her pain is better than when (she) came to the emergency room Exam Data for Last 24 hours Vital signs and Labs for Last 24 Hours: Temp Pulse Resp BP Pulse Ox O2 Del Method 97.7 F 70 16 122/64 95 Room Air 08/09/24 04:00 08/09/24 04:00 08/09/24 04:00 08/09/24 04:00 08/09/24 04:00 08/09/24 04:00 Laboratory Results - last 24 hr 08/08/24 05:27: WBC 11.9 H D, RBC 3.60 L, Hgb 10.2 L D, Hct 32.8 L, MCV 91.1, MCH 28.3, MCHC 31.1 L, RDW 14.6, Plt Count 476 H, MPV 9.6, Neut % (Auto) 66.7, Lymph % (Auto) 25.5, [place] % (Auto) 6.6, Eos % (Auto) 0.1, Baso % (Auto) 0.3, Neut # (Auto) 7.9 H, Lymph # (Auto) 3.0, [place] # (Auto) 0.8, Eos # (Auto) 0.0, Baso # (Auto) 0.0, Sodium 136, Potassium 4.3, Chloride 100, Carbon Dioxide 29, Anion Gap 11.3, BUN 9 D, Creatinine 0.60, Estimated Creat Clear 87, Estimated GFR 104, Est GFR ( Amer) 126, Glucose 116 H D, Calcium 8.1 L, Magnesium 1.9 I & O for Last 24 hours: Intake & Output 08/06/24 08/07/24 08/08/24 08/09/24 11:59 11:59 11:59 11:59 Intake Total 1135 / 1135 Output Total 200 / 700 2300 / 2300 Balance -200 / -700 -1165 / -1165 Weight 125 lb 113 lb 114 lb 8 oz Microbiology Reports for the Last 24 Hours: Microbiology 08/07/24 14:14 Blood Blood Culture - Preliminary NO GROWTH AFTER 24 HOURS 08/07/24 11:25 Blood Blood Culture - Preliminary NO GROWTH AFTER 24 HOURS Constitutional Constitutional: no acute distress *Routine Respiratory Exam Respiratory: Absent respiratory distress *Routine Cardiovascular Exam Cardiovascular: Absent tachycardia *Routine Abdominal Exam Abdominal: Present tenderness Progress Note: A&P Assessment and plan (1) Ileitis: Status: Acute (2) Pouchitis: Problem details: Lower abdominal/pelvic inflammatory changes status post modified Santiago's Status: Acute (3) Leukocytosis: Status: Acute (4) History of right hemicolectomy: Status: Acute (5) History of coronary artery bypass graft: Status: Acute Assessment and Plan Assessment and Plan for All Diagnoses:: Follow-up a.m. labs Continue management as per the primary service Recommend immediate transfer back to the [facility] if she does not continue to improve
[2024-08-09 06:53] LABS: Basophils # 0.2 K/mm3 (0-0.2); Basophils % 1.3 % (0.1-2.0); Eosinophils # 0.2 Kmm3 (0.0-0.4); Eosinophils % 1.9 % (0.1-12.0); Hematocrit 32.1 % (37.0-47.0); Hemoglobin 10.2 g/dL (12.2-16.2); Immature Granulocytes # 0.05 10^3uL; Immature Granulocytes % 0.4 %; Lymphocytes # 4.5 K/mm3 (0.7-4.5); Lymphocytes % 38.2 % (10-50); Mean Corpuscular HGB Conc 31.8 g/dL (31.8-35.4); Mean Corpuscular Volume 91.2 fl (81-99); Mean Platelet Volume 9.5 fl (7.4-10.4); Monocytes # 0.9 K/mm3 (0.1-1.0); Neutrophils # 5.9 K/mm3 (1.8-7.8); Neutrophils % 50.2 % (37.0-80.0); Nucleated Red Blood Cells # 0 10^3/uL; Nucleated Red Blood Cells % 0 %; Platelet Count 491 K/mm3 (142-424); Red Blood Count 3.52 M/mm3 (4.20-5.40); Red Cell Distribution Width 14.9 % (11.5-17.5); White Blood Count 11.7 K/mm3 (4.8-10.8)
[2024-08-09 06:59] LABS: Albumin Level 2.8 g/dl (3.5-5.0); Chloride 100 mmol/L (98-107)
[2024-08-09 07:00] LABS: Potassium 3.8 mmoL/L (3.5-5.1); Sodium 138 mmol/L (136-145)
[2024-08-09 07:02] LABS: Anion Gap 11.8 mEq/L (5-15); Blood Urea Nitrogen 11 mg/dl (7-17); Carbon Dioxide 30 mmol/L (22.0-30.0); Creatinine Clearance Estimated 75 mL/min (50-200); Estimated Glomerular Filt Rate 87 ml/min (>60); GFR (African American) 106 ML/MIN (>60)
[2024-08-09 07:03] LABS: Alanine Aminotransferase 41 U/L (12-78); Alkaline Phosphatase 165 U/L (38-126); Aspartate Amino Transferase 61 U/L (14-36); Calcium 7.9 mg/dl (8.4-10.2); Globulin 2.8 g/dL (1.3-3.2); Glucose 74 mg/dl (74-100); Magnesium 1.9 mg/dl (1.6-2.3); Total Protein,Serum 5.6 g/dl (6.3-8.2)
[2024-08-09 07:08] LABS: Bilirubin,Total < 0.1 mg/dl (0.2-1.3)
[2024-08-09 08:00] VITALS: BP 108/62; PULSE 75; RESP 16; TEMP 36.6; O2SAT 95
--- NOTE | 2024-08-09 08:26 | EXP.DC.SUM ---
General Admission date:: 08/07/24 Discharge date: 08/09/24 HPI HPI HPI: This is a 53-year-old female with past medical history of CAD status post CABG in April at and subsequent mesenteric ischemia requiring right hemicolectomy and modified Santiago's pouch with ostomy who presents back to the emergency department today with left lower quadrant pain. She was admitted approximately 2 weeks ago for similar complaint and was found to have pouchitis. States that she was treated here successfully and discharged home. States that she has been doing okay up into the last several days where she developed left lower quadrant pain. She denies any fever or chills. States that she has had nausea and mild dry heaving. She reports normal ostomy output without noted blood. She does also endorse some dysuria. Initial emergency department workup with leukocytosis with a white count of 17, alk phos of 181. Lactic of 2.5 with improvement to 1.1. Initial CT abdomen pelvis imaging notable for advanced ileitis although improved from previous. Given her complicated surgical history was consulted and recommended CT abdomen pelvis with rectal contrast to evaluate for extravasation/anastomosis leak. CT repeated by ED provider and no extravasation noted. Shared decision making was completed by ED provider, hospitalist attending as well as general surgery. Given no surgical emergency at this time is felt she would benefit from IV antibiotic and serial abdominal exams. Shared decision making completed and patient will remain here for above-mentioned therapies. 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 She was recently discharged from for these surgeries in June. Admitted for 2 weeks ago for similar presentation, found to be positive for C. difficile. Completed course of oral vancomycin. Pain returned, was admitted for management of ileitis. Gradually able to advance diet with improvement in pain and treatment of ileitis again with empiric course of vancomycin x 10 days and Augmentin to complete 7 days total for enteric coverage. Stable on room air. Afebrile. White count improving. Stable to discharge home and recommend close follow-up with colorectal surgery at . Problems addressed as follows: #Sepsis #Ileitis 2/2 complication from recent mesenteric ischemia with right hemicolectomy and Luis pouch procedure. Recent presentation with similar symptoms. Was found to be C. difficile positive. Started empirically this visit on Zosyn and oral vancomycin. Transition to Augmentin to complete 7-day course for ileitis and complete second 10-day course of p.o. vancomycin for empiric retreatment of C. difficile. General surgery followed along during admission, no intervention recommended at this time. White count gradually improved, down to 11 by day of discharge. Blood cultures remain negative. Diet gradually advanced, tolerating regular diet having liquid discharge from ileostomy by day of discharge. #History of right hemicolectomy #History of mesenteric ischemia #Status post ostomy Given complicated surgical history, continue abdominal exams. Patient currently at the time of admission is nonperitonitic. Soft and compressible abdomen, generalized TTP #Anxiety Patient self-reports extreme anxiety over current situation. States that this pain is bearable but she became very anxious secondary to recurrent abdominal pain with prior history. Continue patient's home medications namely trazodone, citalopram and bupropion #CAD Status post CABG at April 2024. Continue statin and aspirin Total time spent on discharge 32 minutes in counseling, documentation, chart review, and direct care with patient. Exam Data for Last 24 hours Vital signs and Labs for Last 24 Hours: Temp Pulse Resp BP Pulse Ox O2 Del Method 97.7 F 70 16 122/64 95 Room Air 08/09/24 04:00 08/09/24 04:00 08/09/24 04:00 08/09/24 04:00 08/09/24 04:00 08/09/24 06:55 Laboratory Results - last 24 hr 08/09/24 05:50: WBC 11.7 H, RBC 3.52 L, Hgb 10.2 L, Hct 32.1 L, MCV 91.2, MCH 29.0, MCHC 31.8, RDW 14.9, Plt Count 491 H, MPV 9.5, Neut % (Auto) 50.2, Lymph % (Auto) 38.2, Morgan % (Auto) 8.0, Eos % (Auto) 1.9, Baso % (Auto) 1.3, Neut # (Auto) 5.9, Lymph # (Auto) 4.5, Morgan # (Auto) 0.9, Eos # (Auto) 0.2, Baso # (Auto) 0.2, Sodium 138, Potassium 3.8, Chloride 100, Carbon Dioxide 30, Anion Gap 11.8, BUN 11, Creatinine 0.70, Estimated Creat Clear 75, Estimated GFR 87, Est GFR ( Amer) 106, Glucose 74, Calcium 7.9 L, Magnesium 1.9, Total Bilirubin < 0.1 L, AST 61 H, ALT 41, Alkaline Phosphatase 165 H, Total Protein 5.6 L, Albumin 2.8 L, Globulin 2.8, Albumin/Globulin Ratio 1.0 L I & O for Last 24 hours: Intake & Output 08/06/24 08/07/24 08/08/24 08/09/24 23:59 23:59 23:59 23:59 Intake Total 965 / 1135 290 / 290 Output Total 1999 / 2200 500 / 500 Balance -1035 / -1065 -210 / -210 Weight 51.256 kg 51.256 kg 51.936 kg Microbiology Reports for the Last 24 Hours: Microbiology 08/07/24 14:14 Blood Blood Culture - Preliminary NO GROWTH AFTER 24 HOURS 08/07/24 11:25 Blood Blood Culture - Preliminary NO GROWTH AFTER 24 HOURS Constitutional Constitutional: no acute distress, thin, chronically ill appearing and cooperative *Routine HEENT Exam Head: Present normocephalic Eye: Present EOMI and PERRL ENT: Present mucous membranes moist *Routine Neck Exam Neck: Present supple; Absent lymphadenopathy *Routine Respiratory Exam Respiratory: Present CTA bilaterally; Absent rhonchi, wheezes or crackles *Routine Cardiovascular Exam Cardiovascular: Present RRR *Routine Abdominal Exam Abdominal: Present soft, normoactive bowel sounds and tenderness (non-focal, improving); Absent rebound Comments: healed midline scar; ostomy in Rt Lower abdomen, stoma pink, liquid stool output *Routine Rectal Exam Patient deferred: visual exam *Routine Exam Patient deferred: external exam *Routine Extremities Exam Extremities: Absent cyanosis, clubbing or edema *Routine Skin Exam Skin: Present warm; Absent rash *Routine Neurological Exam Neurological: Present alert, oriented X3 and moving all extremities; Absent altered mental status Results Data Completed and Pending Labs on day of discharge: Labs from last 24 hours 08/09/24 05:50 WBC 11.7 H RBC 3.52 L Hgb 10.2 L Hct 32.1 L MCV 91.2 MCH 29.0 MCHC 31.8 RDW 14.9 Plt Count 491 H MPV 9.5 Neut % (Auto) 50.2 Lymph % (Auto) 38.2 Morgan % (Auto) 8.0 Eos % (Auto) 1.9 Baso % (Auto) 1.3 Neut # (Auto) 5.9 Lymph # (Auto) 4.5 Morgan # (Auto) 0.9 Eos # (Auto) 0.2 Baso # (Auto) 0.2 Sodium 138 Potassium 3.8 Chloride 100 Carbon Dioxide 30 Anion Gap 11.8 BUN 11 Creatinine 0.70 Estimated Creat Clear 75 Estimated GFR 87 Est GFR ( Amer) 106 Glucose 74 Calcium 7.9 L Magnesium 1.9 Total Bilirubin < 0.1 L AST 61 H ALT 41 Alkaline Phosphatase 165 H Total Protein 5.6 L Albumin 2.8 L Globulin 2.8 Albumin/Globulin Ratio 1.0 L Preliminary micro results at discharge 08/07/24 14:14 Blood Culture - Preliminary Blood NO GROWTH AFTER 24 HOURS 08/07/24 11:25 Blood Culture - Preliminary Blood NO GROWTH AFTER 24 HOURS DS: Diagnosis Discharge Diagnosis (1) Ileitis: Status: Acute Code(s): K52.9 - Noninfective gastroenteritis and colitis, unspecified (2) Pouchitis: Status: Acute Code(s): K91.850 - Pouchitis Problem details: Lower abdominal/pelvic inflammatory changes status post modified Santiago's (3) Leukocytosis: Status: Acute Code(s): D72.829 - Elevated white blood cell count, unspecified Qualifiers: Leukocytosis type: unspecified Qualified Code(s): D72.829 - Elevated white blood cell count, unspecified (4) History of right hemicolectomy: Status: Acute Code(s): Z90.49 - Acquired absence of other specified parts of digestive tract (5) History of coronary artery bypass graft: Status: Acute Code(s): Z95.1 - Presence of aortocoronary bypass graft Meds Home Medications and Allergies Home Medications ?Medication ?Instructions ?Recorded ?Confirmed ?Type citalopram 40 mg tablet 40 mg PO DAILY 12/23/23 08/07/24 History primidone 50 mg tablet 50 mg PO BID 12/23/23 08/07/24 History bupropion HCl 300 mg 24 hr tablet, 300 mg PO DAILY 05/01/24 08/07/24 History extended release hydroxyzine HCl 10 mg tablet 10 mg PO Q8HP PRN Anxiety 05/01/24 08/07/24 History aspirin 81 mg chewable tablet 81 mg PO DAILY 07/21/24 08/07/24 History metoprolol tartrate 25 mg tablet 37.5 mg PO BID 07/21/24 08/07/24 History rosuvastatin 40 mg tablet 40 mg PO HS 07/21/24 08/07/24 History trazodone 50 mg tablet 50 mg PO HSP PRN Insomnia 08/07/24 08/08/24 History potassium chloride 20 mEq 40 meq PO DAILY 08/08/24 08/08/24 History tablet,extended release(part/cryst) amoxicillin 500 mg-potassium 1 tab PO TID 5 days #15 tabs 08/09/24 Rx clavulanate 125 mg tablet (Augmentin) ondansetron 4 mg disintegrating 4 mg PO Q8H PRN nausea and 08/09/24 Rx tablet vomiting 4 days #12 tabs oxycodone 5 mg tablet 5 mg PO Q8H PRN pain #12 tabs 08/09/24 Rx prednisone 20 mg tablet 40 mg (2 x 20 mg) PO DAILY 5 days 08/09/24 Rx #10 tabs vancomycin 50 mg/mL oral solution 125 mg (2.5 mL) PO QID 8 days #80 08/09/24 Rx (Firvanq) mL New Prescriptions to Start Prescriptions: amoxicillin-pot clavulanate [Augmentin] Gregg Barth vancomycin [Firvanq] Gregg Barth Allergies Allergy/AdvReac Type Severity Reaction Status Date / Time oxycodone (From Percocet) AdvReac Vomiting Verified 07/21/24 18:47 Discharge Plan Disposition Patient Disposition: Home, Self-Care Condition: Fair Follow up Plan Follow up with: Lidia Troncoso MD [Referring, Medical] - 08/14/24 8:20 am Referral Note: appointment with advanced [place] 08/14 @ 08:20 Champ Quiroz MD [Primary Care Provider, Internal Medicine] - 08/22/24 10:15 am Prescriptions/Medication Reconciliation: New vancomycin [Firvanq] 50 mg/mL Recon Soln 125 mg PO QID 8 Days Qty: 80 0RF amoxicillin-pot clavulanate [Augmentin] 500-125 mg tablet 1 tab PO TID 5 Days Qty: 15 0RF Continued trazodone 50 mg Tablet 50 mg PO HSP PRN (Reason: Insomnia) potassium chloride 20 mEq tablet,ER particles/crystals 40 meq PO DAILY Patient Comments: TAKE 2 TABLETS BY MOUTH ONCE DAILY DO NOT CRUSH OR CHEW primidone 50 mg tablet 50 mg PO BID Patient Comments: TAKE 1 TABLET BY MOUTH TWICE DAILY FOR 90 DAYS citalopram 40 mg tablet 40 mg PO DAILY hydroxyzine HCl 10 mg tablet 10 mg PO Q8HP PRN (Reason: Anxiety) Patient Comments: TAKE 1 TABLET BY MOUTH EVERY 8 HOURS NEEDED FOR 15 DAYS bupropion HCl 300 mg tablet extended release 24 hr 300 mg PO DAILY Patient Comments: TAKE 1 TABLET BY MOUTH EVERY 24 HOURS aspirin 81 mg tablet,chewable 81 mg PO DAILY rosuvastatin 40 mg tablet 40 mg PO HS metoprolol tartrate 25 mg tablet 37.5 mg PO BID Patient Comments: TAKE 1 & 1/2 (ONE & ONE-HALF) TABLETS BY MOUTH TWICE DAILY No Action prednisone 20 mg tablet 40 mg PO DAILY 5 Days Qty: 10 0RF oxycodone 5 mg tablet 5 mg PO Q8H PRN (Reason: pain) Qty: 12 0RF ondansetron 4 mg tablet,disintegrating 4 mg PO Q8H PRN (Reason: nausea and vomiting) 4 Days Qty: 12 0RF Problem Reconciliation Problems Reviewed?: Yes Patient Discharge Instructions ACTIVITY: Continue current activity DIET: continue same diet Patient Instructions: Low-Fiber/Low-Residue Diet, DI for Sepsis -- Adult, DI for Ileitis, Stop Light Infection Print Language: Senegalese Providers Primary Care Provider: Champ Quiroz Admit Provider: Saul Morrell Attending Provider: Saul Morrell
[2024-08-09] MEDS: ASPIRIN 81MG CHEWABLE TABLET 81 MG PO (08:52)
[2024-08-09] MEDS: buPROPion HCl SR 150MG TAB 150 MG PO (08:52)
[2024-08-09] MEDS: CITALOPRAM 40MG TABLET 40 MG PO (08:52)
[2024-08-09] MEDS: PRIMIDONE 50MG TABLET 50 MG PO (08:52)
[2024-08-09] MEDS: METOPROLOL TARTRATE 25MG TABLET 37.5 MG PO (08:53)
[2024-08-09] MEDS: VANCOMYCIN HCL 50MG/ML 150ML KIT 125 MG PO ×2 (08:58→12:38)
[2024-08-09 12:00] VITALS: BP 121/70; PULSE 73; RESP 16; TEMP 36; O2SAT 94
[2024-08-09] MEDS: KETOROLAC 10MG TABLET 10 MG PO (13:59)
--- NOTE | 2024-08-13 13:17 | SW/DCPLANNER ---
Phoned patient x2. Patient's phone's mailbox is full and not accepting calls Daniel Flowers
== END 2024-08-09 15:38 | disposition home or self-care (01) ==
LOC: ER 15:07 → 2ND 21:30
PROVIDERS: Internal Medicine Adolescent Medicine; Nurse Practitioner Acute Care; Admitting Provider Student in an Organized Health Care Education/Training Program; Emergency Provider Emergency Medicine; PCP Internal Medicine Adolescent Medicine; Visit Provider Student in an Organized Health Care Education/Training Program
DX: K52.9 Noninfective gastroenteritis and colitis, unspecified (principal); A41.9 Sepsis, unspecified organism; K91.850 Pouchitis; F41.9 Anxiety disorder, unspecified; I25.10 Atherosclerotic heart disease of native coronary artery without angina pectoris; K91.858 Other complications of intestinal pouch; A04.72 Enterocolitis due to Clostridium difficile, not specified as recurrent; Z95.1 Presence of aortocoronary bypass graft; Z93.3 Colostomy status; Z90.49 Acquired absence of other specified parts of digestive tract; Z79.899 Other long term (current) drug therapy; Z88.5 Allergy status to narcotic agent; Z79.82 Long term (current) use of aspirin; Z82.49 Family history of ischemic heart disease and other diseases of the circulatory system
CPT/HCPCS: 96361 ×2; 96365; 96375 ×2; 96376 ×3; 36415; 74176; 74177; 80048; 80053; 81001; 83605; 83690; 83735; 84484; 85025; 85610; 85730; 87040; G0378; J0131; J1171; J1885; J2405; J2543; J2919; J3010; J7030; J7120; Q9963; Q9967

== ENCOUNTER 2024-08-09 17:59 | Emergency (ER) | payer MEDICAID, SELFPAY ==
--- OUTSIDE RECORDS SUMMARY | 2024-05-01 23:01 | XMS_ITS | Encounter Summary ---
Author Organization Healthcare Address [address] [place] [address] Care Team Providers Care Insole Channeler Name Role Phone Pcp, No Primary Care Provider Unavailabl e Reason for Referral * Consultation (Routine) - Authorized Specialty Diagnoses / Procedures Referred By Contac t Referred To Contact Cardiac Rehabilitation Diagnoses S/P CABG x 4 Maite Austin MD [address] [address] Phone: tel: fax: [facility] [address] [facility], [address] [place] [address] Phone: tel: fax: Referral ID Status Reason Start Date Expiration Date V isits Requested Visits Authorized [id number] Authorized 06/21/2024 12/21/2025 1 1 * Consultation (Routine) - Closed Specialty Diagnoses / Procedures Referred By Contac t Referred To Contact Diagnoses S/P colon resection Trinity Yousif S, ACCOUNTS RECEIVABLE SPECIALIST [address] [facility] [address] [place] [address] Phone: tel: fax: Lidia Troncoso MD [address] [facility] [address] [place] [address] Phone: tel: fax: Referral ID Status Reason Start Date Expiration Date V isits Requested Visits Authorized [id number] Closed Specialty Services Required 06/21/2024 12/21/2025 1 1 Scheduling Instructions Follow up 4-6 weeks * Home Health (Routine) - Authorized Specialty Diagnoses / Procedures Referred By Contac t Referred To Contact Home Health Services / Case Management Diagnoses S/P CABG x 4 Maite Austin MD [address] Phone: tel: fax: Referral ID Status Reason Start Date Expiration Date Visits Requested Visits Authorized [id number] Authorized Specialty Services Required 06/19/2024 12/19/2025 999 999 * Home Health (Routine) - Authorized Specialty Diagnoses / Procedures Referred By Contac t Referred To Contact Home Health Services / Case Management Diagnoses S/P CABG x 4 Maite Austin MD [address] [address] Phone: tel: fax: Referral ID Status Reason Start Date Expiration Date Visits Requested Visits Authorized [id number] Authorized Specialty Services Required 06/15/2024 12/15/2025 999 999 * Consultation (Routine) - Authorized Specialty Diagnoses / Procedures Referred By Contact Referred To Contact Interventional Radiology Diagnoses Abdominal fluid collection Maite Austin MD [address] [address] Phone: tel:[phone] fax:[phone] [facility] Vascular Interventional Radiology [address] [place] [address] Phone: tel: Referral ID Status Reason Start Date Expiration Date Visits Requested Visits Authorized [id number] Authorized Specialty Services Required 06/04/2024 12/04/2025 1 1 * Consultation (Routine) - Authorized Specialty Diagnoses / Procedures Referred By Kathe deutsch Referred To Contact Cardiac Rehabilitation Diagnoses CAD, multiple vessel Maite Austin MD [address] [facility] [address] [place] [address] Phone: tel: fax: [facility] [address] [facility], [address] [place] [address] Phone: tel: fax: Referral ID Status Reason Start Date Expiration Date V isits Requested Visits Authorized [id number] Authorized 05/06/2024 11/05/2025 1 1 Reason for Visit * Auth/Cert (Routine) Specialty Diagnoses / Procedures Referred By Kathe deutsch Referred To Contact Diagnoses CAD, multiple vessel Acute NSTEMI, Left main stenosis, CAD Edson Mcclure DO [address] [place] [address] Phone: tel: fax: [facility] [address] [place] [address] Referral ID Status Reason Start Date Expiration Date Visits Re quested Visits Authorized [id number] 1 1 Encounter Details Date Type Department Care Team (Latest Contact Info) Description 05/01/2024 11:01 PM EDT - 06/21/2024 3:41 PM EDT Hospital Encounter [facility] [address] [place] [id number] Edson Mcclure DO [address] [place] [address] Erum Bahena MD [address] [id number] Maite uAstin MD [address] [place] [address] S/P colon resection (Primary Dx); CAD, multiple [...] any time in the past 12 m [facility], were you homeless or living in a penitentiary (including now)? No 05/02/2024 Utilities Answer Date Recorded In the past 12 months has e electric, gas, oil, or water company [...] Discharge Instructions * Discharge Instructions* Stefany Edwards, ARASH - 06/04/2024 10:49 AM EDT [facility] - Vascular & Interventional Radiology (VIR) *If patient is discharged with IR-placed drain, primary floor/bedside RN to educate patient/family on drain care and provide the following supplies (per drain) to patient at discharge. *If any supply is not available in floor stock, contact Materials [phone]. *Saline flushes can be supplied via Meds [...] the drain. Contact the VIR Clinic at [phone], or discuss at your next follow-up visit. [...] the drain system dry. Follow up with [facility] at [phone] for appointments or questions. Follow the [id number]-ij-[id number] directions in the [facility]ush[facility] Drain Care handout. [...] Follow up and other appointments with the [facility] First follow-up visit. We will call you to schedule a follow-up visit with the Vascular and Interventional Radiology Clinic. You should be seen in our clinic within 2 weeks after leaving the hospital. If you have not been contacted to schedule this appointment, please contact the VIR Clinic at [phone]. To schedule or reschedule a clinic visit, call [phone]. To reschedule a procedure, call our schedulers at [phone], option 4. [facility] location and phone number Vascular & Interventional Radiology Clinic [facility], 1st floor [address], [address] [place] [address] In case of emergency For any emergency, please go to the nearest Emergency Room or dial [phone]. If you have questions or concerns about the drain Tuesday-Tuesday, 8 a.m.-4:30 p.m., call the [facility] at [phone]. After hours, weekends, and holidays, call [phone]. Ask for the Interventional Radiology provider television camera operator. Drainage Log You must keep a daily [...] saline. Clamp the tube and then flush [id number] normal saline. Then unclamp the tube to [...] please call our General Surgery Clinic at [phone]. If there are questions or concerns after discharge from the hospital, call Leola Montano, Nurse Coordinator between 7am-3pm at [phone]. If it is after hours, weekends, and holidays please call [phone] and ask for the resident television camera operator for Emergency General Surgery. Medication requests should be made between the hours of 9:00 AM to 3:00 PM Tuesday thru Tuesday. Please note that based upon recent changes to [place] law related to prescribing opioid pain medications, [...] is complete. [facility] to [facility] home, [facility]. She is aware that [facility] will contact her to discuss andschedule. Cardiac [...] rehabilitation program. 2. Eligibility: CABG 3. Exceptions/exclusions: [facility] Cardiac Rehab Exclusions: None 4. Referral: [facility] Cardiac Rehab Referral: Patient will consider participating in a cardiac rehabilitation program. Patient was provided with contact information for the following program(s) for consideration: [facility] Doming[facility] [place] - [phone]. 5. Information sent: Information Sent: Appropriate information will be sent to the receiving cardiac rehabilitation program.: * Progress Notes - Annika Perez RN - 06/21/2024 12:44 PM EDT Case Management Discharge Note Rere Hunter 53 y.o. female CSN: [id number] Admission: 05/01/2024 11:01 PM Primary Problem: CAD, multiple vessel Primary Passenger Barge Master: Primary Caregiver: Self Assistance Available at Discharge: Availability of Care Givers (#Hours): No assistance needed Family/Passenger Barge Master(s) Willingness Assessed to care for patient at home: Yes Family/Passenger Barge Master(s) Readiness Assessed to care for patient at [...] Medicare Documentation: Medicare Second Notice?: No Follow-up: [facility] [address] [facility], [address] [facility] [address] [facility] Card[facility] Specialty Clinic [address] [address] Go on 08/02/2024 Your appointment time is 2pm Please arrive 15 minutes early and bring bottles of medications. [facility] Vascular Interventional Radiology [address] [facility] [address] Lidia Troncoso MD [address] [facility] [address] Discharge Transportation: Transportation Anticipated: family or friend will provide Transportation Home at Discharge: Family/Friend will Provide Follow Up Transport: Transportation Needed to Follow up Appoinments: Family/Friend will Provide Additional Comments: Per primary team patient is medically ready for discharge. CM confirmed rollator in room, and that [employer] will deliver her ostomy supplies. Cm sent referral to [facility] for wound dressings, but was denied. Patient has outpatient script for PT/OT. Patient agreeable with discharge plan. No CM/SW needs identified. Family to transport and assist upon discharge. Annika Perez RN * Can KelleyJAMISON - DoctorAmy RN - 06/21/2024 12:27 PM EDT Images from the original note were not included. [id number] Naloxone Nasal [place] Brand Name(s): Kloxxado??, Narcan??, Rezenopy??; also available [...] pharmacist for the instructions or visit the microbiology technologist's website to get the instructions. You should [...] or doctor for a copy of the microbiology technologist's information for the patient. Are there OTHER [...] to the Food and Drug Administration's (FDA) Planet Daily Adverse Event Reporting program online (https://www.fda.gov/Safety/Stratasantch) or by phone ( ). What should [...] and out of their sight and reach. [email or web address]://www.[employer].org Unneeded medications should be disposed of in [...] of all of the prescription and nonprescription (tvzp-vma-zshkvtk) medicines you are taking, as well as [...] or pharmacist about specific clinical use. The [place] [employer] represents that the information provided hereunder was formulated with a reasonable standard of care, and in conformity with professional standards in the field. The [place] [employer] makes no representations or warranties, express or implied, including, but not limited to, any implied warranty of merchantability and/or fitness for a particular purpose, with respect to such information and specifically disclaims all such warranties. Users are advised that decisions regarding drug therapy are complex medical decisions requiring the independent, informed decision of an appropriate health post acute care nurse, and the information is provided for informational purposes only. The entire monograph for a drug should be reviewed for a thorough understanding of the drug's actions, uses and side effects. The [place] [employer] does not endorse or recommend the use of any drug.The information is not a substitute for medical care. AHFS?? Patient Medication Information?. ?? Copyright, 2023. The [place] [employer]??, [address] [facility] [facility], [address], [place], [place]. All Rights Reserved. Duplication for commercial use must be authorized by [facility]. Selected Revisions: September 03, 2023. AHFS?? Patient Medication Information?. ?? Copyright, 2024 * [facility] - Amy Sultana RN - 06/21/2024 12:27 PM EDT Images from the original note were not included. [id number] Simethicone Brand Name(s): Mt?? Anti-Gas, Colic Drops, [...] ounce (30 milliliters) of cool water or formula. What SPECIAL PRECAUTIONS should I follow? [...] and out of their sight and reach. [email or web address]://[email or web address].[email or web address] Unneeded medications should be disposed of in [...] of all of the prescription and nonprescription (cwhp-nal-qjmmcbl) medicines you are taking, as well as [...] or pharmacist about specific clinical use. The [place] [employer] represents that the information provided hereunder was formulated with a reasonable standard of care, and in conformity with professional standards in the field. The [place] [employer] makes no representations or warranties, express or implied, including, but not limited to, any implied warranty of merchantability and/or fitness for a particular purpose, with respect to such information and specifically disclaims all such warranties. Users are advised that decisions regarding drug therapy are complex medical decisions requiring the independent, informed decision of an appropriate health post acute care nurse, and the information is provided for informational purposes only. The entire monograph for a drug should be reviewed for a thorough understanding of the drug's actions, uses and side effects. The [place] [employer] does not endorse or recommend the use of any drug.The information is not a substitute for medical care. AHFS?? Patient Medication Information?. ?? Copyright, 2023. The [place]??, [address] [facility] [address] [facility], [address], [place], [place]. All Rights Reserved. Duplication for commercial use must be authorized by [facility]. Selected Revisions: March 31, 2017. AHFS?? Patient Medication Information?. ?? Copyright, 2024 * Can KelleyJAMISON - Amy Sultana RN - 06/21/2024 12:27 PM EDT Images from the original note were not included. [id number] Rosuvastatin Brand Name(s): Crestor??, Ezallor?? Sprinkle??, Roszet?? [...] and out of their sight and reach. https://www.GLO.org Unneeded medications should be disposed of in [...] be awakened, immediately call emergency services at [phone]. What OTHER INFORMATION should I know? Keep [...] of all of the prescription and nonprescription (swlj-jkp-tnpfmrw) medicines you are taking, as well as [...] or pharmacist about specific clinical use. The [place] [employer] represents that the information provided hereunder was formulated with a reasonable standard of care, and in conformity with professional standards in the field. The [place] [employer] makes no representations or warranties, express or implied, including, but not limited to, any implied warranty of merchantability and/or fitness for a particular purpose, with respect to such information and specifically disclaims all such warranties. Users are advised that decisions regarding drug therapy are complex medical decisions requiring the independent, informed decision of an appropriate health post acute care nurse, and the information is provided for informational purposes only. The entire monograph for a drug should be reviewed for a thorough understanding of the drug's actions, uses and side effects. The [place] [employer] does not endorse or recommend the use of any drug.The information is not a substitute for medical care. AHFS?? Patient Medication Information?. ?? Copyright, 2023. The [employer]??, [address] [facility] [facility], [address], [place], [place]. All Rights Reserved. Duplication for commercial use must be authorized by [facility]. Selected Revisions: January 29, 2024. AHFS?? Patient Medication Information?. ?? Copyright, 2024 * [facility] - Amy Sultana RN - 06/21/2024 12:27 PM EDT Images from the original note were not included. [id number] Oxycodone Brand Name(s): Oxaydo?, Oxycontin??, Roxicodone??, Roxybond??, [...] Health Services Administration (SAMHSA) National Helpline at 4-207-420-MWTO. Oxycodone may cause serious or life-threatening breathing [...] doctor or pharmacist will give you the microbiology technologist's patient information sheet (Medication Guide) when you begin your treatment with oxycodone and each time you fill your prescription. Read theinformation carefully and ask your doctor or pharmacist if you have any questions. You can also visit the Food and Drug Administration (FDA) website (https://www.fda.gov/Drugs/DrugSafety/wlh859906.htm) or the microbiology technologist's website to obtain the Medication Guide. WHY [...] or herbal products may interact with oxycodone: Jen's wort and tryptophan. Be sure to let [...] pharmacist for the instructions or visit the microbiology technologist's website to get the instructions. If symptoms [...] narrowing or widening of the pupils (dark [place] in the eye) ?? cold, clammy skin [...] of all of the prescription and nonprescription (oxji-nwe-qemmqro) medicines you are taking, as well as [...] or pharmacist about specific clinical use. The [place] [employer] represents that the information provided hereunder was formulated with a reasonable standard of care, and in conformity with professional standards in the field. The [place] [employer] makes no representations or warranties, express or implied, including, but not limited to, any implied warranty of merchantability and/or fitness for a particular purpose, with respect to such information and specifically disclaims all such warranties. Users are advised that decisions regarding drug therapy are complex medical decisions requiring the independent, informed decision of an appropriate health post acute care nurse, and the information is provided for informational purposes only. The entire monograph for a drug should be reviewed for a thorough understanding of the drug's actions, uses and side effects. The [place] [employer] does not endorse or recommend the use of any drug.The information is not a substitute for medical care. AHFS?? Patient Medication Information?. ?? Copyright, 2023. The [place] [employer] Pharmac[employer]??, [address] [facility], [address], [place], [place]. All Rights Reserved. Duplication for commercial use must be authorized by [facility]. Selected Revisions: February 29, 2024. AHFS?? Patient Medication Information?. ?? Copyright, 2024 * Can KelleyOBI - Amy Sultana RN - 06/21/2024 12:26 PM EDT Images from the original note were not included. [id number] Metoprolol Brand Name(s): Kapspargo Sprinkle??, Lopressor??, Toprol?, [...] of all of the prescription and nonprescription (baej-oph-gzujjym) medicines you are taking, as well as [...] or pharmacist about specific clinical use. The [place] [employer] represents that the information provided hereunder was formulated with a reasonable standard of care, and in conformity with professional standards in the field. The [place] [employer] makes no representations or warranties, express or implied, including, but not limited to, any implied warranty of merchantability and/or fitness for a particular purpose, with respect to such information and specifically disclaims all such warranties. Users are advised that decisions regarding drug therapy are complex medical decisions requiring the independent, informed decision of an appropriate health post acute care nurse, and the information is provided for informational purposes only. The entire monograph for a drug should be reviewed for a thorough understanding of the drug's actions, uses and side effects. The [place] [employer] does not endorse or recommend the use of any drug.The information is not a substitute for medical care. AHFS?? Patient Medication Information?. ?? Copyright, 2023. The [place] Pharmac[employer]??, [address] [facility], [address], [place], [place]. All Rights Reserved. Duplication for commercial use must be authorized by [facility]. Selected Revisions: October 29, 2022. AHFS?? Patient Medication Information?. ?? Copyright, 2024 * [facility] - Amy Sultana RN - 06/21/2024 12:26 PM EDT Images from the original note were not included. [id number] Methocarbamol Brand Name(s): Robaxin??; also available generically [...] be awakened, immediately call emergency services at 481. What OTHER INFORMATION should I know? Keep all appointments with your doctor. Do not let anyone else take your medication. Ask your pharmacist any questions you have about refilling your prescription. It is important for you to keep a written list of all of the prescription and nonprescription (vtoe-bjm-spvkmyz) medicines you are taking, as well as [...] or pharmacist about specific clinical use. The [place] [employer]. represents that the information provided hereunder was formulated with a reasonable standard of care, and in conformity with professional standards in the field. The [place] [employer]. makes no representations or warranties, express or implied, including, but not limited to, any implied warranty of merchantability and/or fitness for a particular purpose, with respect to such information and specifically disclaims all such warranties. Users are advised that decisions regarding drug therapy are complex medical decisions requiring the independent, informed decision of an appropriate health post acute care nurse, and the information is provided for informational purposes only. The entire monograph for a drug should be reviewed for a thorough understanding of the drug's actions, uses and side effects. The [place] [employer] does not endorse or recommend the use of any drug.The information is not a substitute for medical care. AHFS?? Patient Medication Information?. ?? Copyright, 2023. The [employer]System Pharmacists??, [address] [facility], [address], [place], [place]. All Rights Reserved. Duplication for commercial use must be authorized by [facility]. Selected Revisions: September 28, 2016. AHFS?? Patient Medication Information?. ?? Copyright, 2024 * Can Alex - Amy Sultana RN - 06/21/2024 12:26 PM EDT Images from the original note were not included. [id number] Aspirin Brand Name(s): Acuprin??, Anacin?? Aspirin Regimen, Ascriptin??, Aspergum??, Aspidrox??, Aspir-Mox??, Aspirtab??, Aspir-risa??, Wan?? Aspirin, Bufferin??, Buffex??, Easprin??, Ecotrin??, Empirin??,Entaprin??, Entercote??, Fasprin??, Genacote??, Gennin-FC??, Genprin??, Halfprin??, Magnaprin??, Miniprin??, Minitabs??, Ridiprin??, Sloprin??, Uni-Buff??, Uni-Tren??, [place]??, Zorprin??, Paula-[place]?? (as a combination product containing Aspirin, Citric Acid, Sodium Bicarbonate), [place]??Extra Strength (as a combination product containing Aspirin, Citric Acid, Sodium Bicarbonate), [place]?? Morning Relief (as a combination product containing Aspirin, Caffeine), [place]?? Plus Flu (as a combination product containing Aspirin, Chlorpheniramine, Dextromethorphan), [place]?? PM (as a combination product containing Aspirin, [...] and out of their sight and reach. https://www.[employer].org Unneeded medications should be disposed of in [...] be awakened, immediately call emergency services at [phone]. Symptoms of overdose may include: ?? burning [...] of all of the prescription and nonprescription (savf-gdn-djbefob) medicines you are taking, as well as [...] or pharmacist about specific clinical use. The [place] [employer] represents that the information provided hereunder was formulated with a reasonable standard of care, and in conformity with professional standards in the field. The [employer] makes no representations or warranties, express or implied, including, but not limited to, any implied warranty of merchantability and/or fitness for a particular purpose, with respect to such information and specifically disclaims all such warranties. Users are advised that decisions regarding drug therapy are complex medical decisions requiring the independent, informed decision of an appropriate health post acute care nurse, and the information is provided for informational purposes only. The entire monograph for a drug should be reviewed for a thorough understanding of the drug's actions, uses and side effects. The [place] does not endorse or recommend the use of any drug.The information is not a substitute for medical care. AHFS?? Patient Medication Information?. ?? Copyright, 2023. The [employer]??, [address], [address], [place], [place]. All Rights Reserved. Duplication for commercial use must be authorized by [facility]. Selected Revisions: June 28, 2020. AHFS?? Patient Medication Information?. ?? Copyright, 2024 * Can Alex - Amy Sultana RN - 06/21/2024 12:26 PM EDT Images from the original note were not included. [id number] Acetaminophen Brand Name(s): Actamin??, Feverall??, Panadol??, Tempra Quicklets??, Tylenol??, Dayquil?? (as a combination product containing Acetaminophen, Dextromethorphan, Pseudoephedrine), NyQuil Cold/Flu Relief?? (as a combination product containing Acetaminophen, Dextromethorphan, Doxylamine), Percocet?? (as a combination product containing Acetaminophen, Oxycodone) APAP, U-wazrzt-jlzf-aminophenol, Paracetamol IMPORTANT WARNING: Taking too much acetaminophen [...] measuring cup or syringe provided by the microbiology technologist to measure each dose of the solution [...] of all of the prescription and nonprescription (dkhm-hyz-lkohtkq) medicines you are taking, as well as [...] or pharmacist about specific clinical use. The [place] [employer] represents that the information provided hereunder was formulated with a reasonable standard of care, and in conformity with professional standards in the field. The [place] [employer] makes no representations or warranties, express or implied, including, but not limited to, any implied warranty of merchantability and/or fitness for a particular purpose, with respect to such information and specifically disclaims all such warranties. Users are advised that decisions regarding drug therapy are complex medical decisions requiring the independent, informed decision of an appropriate health post acute care nurse, and the information is provided for informational purposes only. The entire monograph for a drug should be reviewed for a thorough understanding of the drug's actions, uses and side effects. The [place] does not endorse or recommend the use of any drug.The information is not a substitute for medical care. AHFS?? Patient Medication Information?. ?? Copyright, 2023. The [employer]??, [address], [address], [place], [place]. All Rights Reserved. Duplication for commercial use must be authorized by [facility]. Selected Revisions: October 29, 2022. AHFS?? Patient [...] Austin MD PCP name and Address: Pcp, No [address] [place] [address] Referring provider name and address: No referring provider defined for this encounter. Chief Concern, Brief History of Present Illness, and Hospital Course Ms. Rere Hunter is a 53 year old with PMH significant for anxiety, depression, COPD, and tobacco abuse. She initially presented to [facility]. She ruled in for NSTEMI and [...] Your Medications These medications were sent to [facility] - [place], [place] - [address] [facility] [id number] acetaminophen 500 MG tablet aspirin 81 MG [...] Fluid Collection - possible reactive secondary to NM - WBC 12.8, afebrile - continue to [...] Center 06/26/2024 11:00 AM Bc Mckee MD [facility] 07/18/2024 9:00 AM Maite Austin MD [facility] 07/31/2024 9:00 AM Lidia Troncoso MD GSURCH[facility] Test Results Pending At Discharge None Pertinent [...] Appliance 2 piece;Flat Barrier/Pouch 06/19/242245 Site Assessment Moist;[place] 06/19/24 224 Peristomal Assessment Intact;Clean 06/19/246 Output (mL) 125 mL 06/20/24 0405 Gastric Output Appearance Watery 06/20/24 0405 Gastric Output Color Yellow;Brown 06/20/24 0405 Appliance [...] and tobacco abuse. She initially presented to [facility]. She ruled in for NSTEMI and [...] PM * Progress Notes - Trinity Yousif, ACCOUNTS RECEIVABLE SPECIALIST - 06/20/2024 10:23 AM EDT CVT Progress [...] and tobacco abuse. She initially presented to [facility]. She ruled in for NSTEMI and [...] Fluid Collection - possible reactive secondary to NM - WBC 12.8, afebrile - continue to [...] H/H 10.2/30.1 - 06/17: H/H 10.4/31.9 - 5: H/H 11.0/33.7 - 06/19: H/H 10.7/33.1 - 06/20: H/H 11.2/34.5 (resolved) Hypocalcemia (POA) - monitor and replace prn Hypomagnesemia - monitor and replete prn Hyponatremia - fluid restriction Thrombocytosis - platelets 478 - continue to monitor - 06/13: platelets 409 - 2: platelets 437 - 3: platelets 470 - 06/17: platelets 514 - 06/18: platelets 565 - 06/19: platelets 615 - 06/20: platelets 682 Transaminitis [...] 43, alk phos 164, Tbili 0.3 - 06/19: ALT 62, AST 37, alk phos 153, [...] plan of care. Encourage mobilization. Cardiothoracic Surgery [phone] * Clinician Note - Divina Yousif - 06/20/2024 10:13 AM EDT Physical Therapy Attempt Patient Name: Rere Hunter Today's Date: 06/20/2024 Patient was attempted to be seen by physical therapy 06/20/2024 for PT Treatment however patient politely declined. PT provided gentle encouragement and education. Pt continued to refuse, reports she will mobilize with staff respiratory therapist later this date. Physical therapy team will [...] refuse, reports she will mobilize with staff respiratory therapist later this date. Occupational therapy team will follow-up as schedulepermits. Written by Keisha Sabillon on 06/20/24 at 12:39 PM. * Progress Notes - Annika Perez RN - 06/20/2024 7:40 AM EDT Case Management Adult Progress Note Rere Hunter 53 y.o. female CSN: [id number] Admission: 05/01/2024 11:01 PM Primary Problem: CAD, multiple vessel Anticipated Discharge Date: tbd Additional Comments: CM placed wound vac referral with [facility]. Annika Perez RN * Care Plan - [...] and tobacco abuse. She initially presented to [facility]. She ruled in for NSTEMI and [...] Fluid Collection - possible reactive secondary to NM - WBC 12.8, afebrile - continue to [...] H/H 10.2/30.1 - 06/17: H/H 10.4/31.9 - 5: H/H 11.0/33.7 - 06/19: H/H 10.733.1 Hypocalcemia (POA) - monitor and replace prn Hypomagnesemia - monitor and replete prn Hyponatremia - fluid restriction Thrombocytosis - platelets 478 - continue to monitor - 06/13: platelets 409 - 5/2: platelets 437 - 5/3: platelets 470 - /4: platelets 514 - 5/5: platelets 565 - 5/6: platelets 615 Transaminitis - ALT 122, AST 80, alkphos 258, Tbili 0.3 - improved - 06/13: ALT 99, AST 52, alk phos 212, Tbili 0.3 - 5/2: ALT 59, AST 32, alk phos 181, Tbili 0.3 - 5/3: ALT 55, AST 37, alk phos 170, Tbili 0.3 - 5/4: ALT 87, AST 70, alk phos 172, Tbili 0.3 - 5/5: ALT 72, AST 43, alk phos 164, Tbili 0.3 - 5/6: ALT 62, AST 37, alk phos 153, Tbili 0.2 Prolonged QT (POA) Sinus tachycardia Incomplete RBBB - continue to monitor rhythm Acute postoperative pain - Abdominal tenderness and pain - [facility] Total Parenteral Nutrition (TPN) (discontinued) - Started [...] (appointment made and in chart). Cardiothoracic Surgery [phone] * Consults - Gretchen Brothers RD - 06/19/2024 12:39 PM EDT Adult Nutrition Evaluation Note Rere Hunter 53 y.o. female CSN: [id number] Room/Bed 117/117A Nutrition evaluation type: follow-up Reason [...] reports persistent abd pain with PO intake. ACCOUNTS RECEIVABLE SPECIALIST present encourages pt to move to help [...] (Calculated): 22.09 Weight Evaluation: Overweight (BMI 25-29.9) [place] Body Weight (kg): 47.7 Percent [place] Body Weight: 111 Adjusted Body Weight (kg): 50.9 Wt Readings from Last 10 Encounters: 06/19/24 53 kg (116 lb 13.5 oz) 06/28/23 59 kg (130 lb) 04/26/23 62.6 kg (138 lb) 01/18/23 61.7 kg (136 lb) Estimated Needs: Kcal/ K-35 Kcal Provided: 7619-3320 Kcal Needs Based On: Current weight Gm Protein/ Kg : 1.5-2 Protein Provided: 81-109 Protein Needs Based On: Current weight Metabolic Cart Study Results: Current Nutrition Intake: Diet Supplements: Boost Very High Calorie Diet Order: Adult Diet Diet Texture: Regular Adult Carbohydrate Restriction: Consistent CHO 2 (2068-5924 Channing, 80 g/meal) Fat Restriction: Cardiac Other Restrictions: Other (Comment) (GI Ostomy) Percent Meals Eaten (%): avg 55% x 5 meals (06/14-06/15) Diet Experience and Nutrition History: Diet Education Provided: Will monitor Pertinent home medications: reviewed [place] needs: Nutrition Focused Physical Exam: Physical exam [...] to 4LNC 05/08 resolved Tobacco use 05/01/2024 Drug Safety Associate for smoking 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 Complicates all [...] 05/01/2024 Reason for Consult: wound vac to [place]. Wound History: PMHx of CAD, HTN, COPD, [...] 06/18/241144 Stomal Appliance 2 piece;Flat Barrier/Pouch;Flat Ring;Barrier [place]/Wipe 06/18/24 114 Site Assessment Moist;[place];Raised 06/18/24 1145 Peristomal Assessment Clean;Intact 06/18/24 1145 Treatment Bag [...] and tobacco abuse. She initially presented to [facility]. She ruled in for NSTEMI and [...] Fluid Collection - possible reactive secondary to NM - WBC 12.8, afebrile - continue to [...] platelets 409 - 2: platelets 437 - 06/16: platelets 470 - [...] pain - Abdominal tenderness and pain - [facility] Total Parenteral Nutrition (TPN) (discontinued) - Started [...] (appointment made and in chart). Cardiothoracic Surgery [phone] * Progress Notes - Annika Perez RN - 06/18/2024 9:11 AM EDT Case Management Adult Progress Note Rere Hunter 53 y.o. female CSN: [id number] Admission: 05/01/2024 11:01 PM Primary Problem: CAD, multiple vessel Anticipated Discharge Date: 06/21/2024 Additional Comments: KRISTINA PATEL reviewed chart and met with primary team to discuss plan of care. Patient is not medically ready for discharge at this time, continue to monitor ileus. Edward sent Fax to [facility] for ostomy supplies, will continue to follow. Update: EDWARD contacted [facility] for follow up [place] dressing changes. CM to set up care through the infusion center until getting established on a MWF schedule with the outpatient wound clinic. Annika [...] 06/16/241999 RECs FOR HOME: 2 04/17 Wafer: #[id number] 2 04/17 bag: #46793 2 inch ring: #8805 Stoma powder: # 7906 Skin protective wipes: #7917 Odor eliminator and lubricant: #45720 Lester Lazo RN CWOCN 06/18/2024 8:27 AM * Care Plan - Luca Urbano RN - 06/18/2024 7:30 AM EDT Problem: Adult Inpatient Plan of Care Goal: Plan of Care Review Outcome: Ongoing, Progressing Flowsheets Taken 06/17/2024 3254 by Brooklyn Miller RN Progress: no change Taken 06/15/2024 0155 by Lelia Nuñez RN Plan of Care Reviewed With: patient [...] Progressing * Progress Notes - Trinity Yousif, ACCOUNTS RECEIVABLE SPECIALIST - 06/17/2024 10:08 AM EDT CVT Progress [...] and tobacco abuse. She initially presented to [facility]. She ruled in for NSTEMI and [...] Fluid Collection - possible reactive secondary to NM - WBC 12.8, afebrile - continue to [...] - 06/16: H/H 10.2/30.1 - 06/17: H/H 10./31.9 Hypocalcemia (POA) - monitor and replace prn [...] pain - Abdominal tenderness and pain - [facility] Total Parenteral Nutrition (TPN) (discontinued) - Started [...] in chair for all meals. Cardiothoracic Surgery [phone] * Progress Notes - Trinity Yousif APRN [...] and tobacco abuse. She initially presented to [facility]. She ruled in for NSTEMI and [...] Fluid Collection - possible reactive secondary to NM - WBC 12.8, afebrile - continue to [...] pain - Abdominal tenderness and pain - [facility] Total Parenteral Nutrition (TPN) (discontinued) - [...] to encourage to eat. Mobilize. Cardiothoracic Surgery [phone] * Progress Notes - Annika Perez RN - 06/15/2024 1:11 PM EDT Case Management Discharge Note Rere Hunter 53 y.o. female CSN: [id number] Admission: 05/01/2024 11:01 PM Primary Problem: CAD, multiple vessel Primary Passenger Barge Master: Primary Caregiver: Self Assistance Available at Discharge: Availability of Care Givers (#Hours): No assistance needed Family/Passenger Barge Master(s) Willingness Assessed to care for patient at home: Yes Family/Passenger Barge Master(s) Readiness Assessed to care for patient at [...] Medicare Documentation: Medicare Second Notice?: No Follow-up: [facility] [address], [address] [facility] [address] [facility] Card[facility] [place] [address] Go on 08/02/2024 Your appointment time is 2pm Please arrive 15 minutes early and bring bottles of medications. [facility] Vascular Interventional Radiology [address] [facility] [address] Discharge Transportation: Transportation Anticipated: family or friend will provide Transportation Home at Discharge: Family/Friend will Provide Follow Up Transport: Transportation Needed to Follow up Appoinments: Family/Friend will Provide Additional Comments: Per primary team patient is medically ready and may discharge over the weekend. CM placed rollator referral to [facility]. CM notified primary team to give patient a script for outpatient Pt/OT. Patient is agreeable with discharge plan. No CM/SW needs identified. Daughter to assist and transport upon discharge. Annika Perez RN * Progress Notes - Trinity Yousif, ACCOUNTS RECEIVABLE SPECIALIST - 06/15/2024 9:17 AM EDT CVT Progress [...] and tobacco abuse. She initially presented to [facility]. She ruled in for NSTEMI and [...] Fluid Collection - possible reactive secondary to NM - WBC 12.8, afebrile - continue to [...] with no acute intracranial abnormalities. Cardiothoracic Surgery [phone] * Care Plan - Lelia Nuñez RN [...] Note Rere Hunter 53 y.o. female CSN: [id number] Room/Bed 117/117A Nutrition evaluation type: follow-up Reason [...] reports persistent abd pain with PO intake. ACCOUNTS RECEIVABLE SPECIALIST present encourages pt to move to help [...] O2 Delivery Method: Nasal cannula with capnography [facility] [place] Coma Scale Score: 15 [place] Scale Score: [...] (Calculated): 22.71 Weight Evaluation: Overweight (BMI 25-29.9) [place] Body Weight (kg): 47.7 Percent [place] Body Weight: 114 Adjusted Body Weight (kg): 50.9 Wt Readings from Last 10 Encounters: 06/14/24 54.5 kg (120 lb 2.4 oz) 06/28/23 59 kg (130 lb) 04/26/23 62.6 kg (138 lb) 01/18/23 61.7 kg (136 lb) Estimated Needs: Kcal/ K-35 Kcal Provided: 2520-9943 Kcal Needs Based On: Current weight Gm Protein/ Kg : 1.5-2 Protein Provided: 81-109 Protein Needs Based On: Current weight Metabolic Cart Study Results: Current Nutrition Intake: Diet Supplements: Boost Very High Calorie, Roque Packet Diet Order: Adult Diet Diet Texture: Regular Adult Carbohydrate Restriction: Consistent CHO 2 (7142-9617 Channing, 80 g/meal) Fat Restriction: Cardiac Other Restrictions: Other (Comment) (GI: Ostomy) Percent Meals Eaten (%): No updates att Diet Experience and Nutrition History: Diet Education Provided: Will monitor Pertinent home medications: reviewed [place] needs: Nutrition Focused Physical Exam: Physical exam [...] once daily + Roque BID (located in Wir3s). -Document PO intake in flowsheet -TF Rec's [...] Date Anxiety COPD (chronic obstructive pulmonary disease) ([facility]) 05/01/2024 Continue Duo nebs q6 SPO2 goal >88% Depression GERD (gastroesophageal reflux disease) 05/01/2024 Continue Protonix 40 mg daily Hyperkalemia 05/06/2024 Now resolved, pt with hypokalemia requiring replacement On mechanically assisted ventilation ([facility]) 05/06/2024 Arrived to ICU intubated 05/07 extubated to 4LNC 05/08 resolved Tobacco use 05/01/2024 Drug Safety Associate for smoking 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 Complicates all [...] admission Level of Mobility Ambulatory- community Mobility [place] Independent gait without device (pt is the [...] unaware when pt may be discharged from [facility]. Water Purifier (if applicable) OBJECTIVE & INTERVENTIONS PAIN Pain [...] Treatment Minutes 23 BED MOBILITY Level of [place] Physical/Non- physical Assist Adaptive Equipment Utilized Rolling/ Turning Scooting/ Bridging Stand-by assist Set-up required, Minimal cues Supine to Sit Stand-by assist Set-up required, Minimal cues Sit to Supine Interventions TRANSFERS Level of [place] Physical/Non- physical Assist Adaptive Equipment Utilized Sit to Stand Stand-by assist Set-up required, Minimal cues Rollator Stand to sit Stand-by assist Verbal Cues, Set-up required Rollator Bed to Chair Toilet Transfer Shower Transfer Interventions AMBULATION Level of [place] Distance Adaptive Equipment Utilized Ambulation Standby assist 640 ft Rollator Comments Safely done. Fatigued after 500 ft . GLUER AND SLICER HAND presence was necessary for: * managing lines [...] Note Rere Hunter 53 y.o. female CSN: [id number] Admission: 05/01/2024 11:01 PM Primary Problem: CAD, [...] extended L colectomy and end colostomy creation ([facility]) 06/04: IR-guided drain Interval: resting in bed, [...] Addendum 05/23/2024 8:44 AM by Marybel Suarez, ACCOUNTS RECEIVABLE SPECIALIST Patient presented to OSH on 05/01/24 c/o chest pain, C reveal mvCAD S/p CABG with Dr. Austin on 05/07 Anxiety and depression Yes Overview Addendum 05/23/2024 8:43 AM by Marybel Suarez, ACCOUNTS RECEIVABLE SPECIALIST Continue home bupropion XL 300 mg daily Continue home citalopram 40 mg daily Continue PRN hydroxyzine 25 mg q6 COPD (chronic obstructive pulmonary disease) ([facility]) Yes Overview Addendum 05/23/2024 8:43 AM by Marybel Suarez, ARASH Duo nebs q6 Wean O2 for SPO2 goal >88% Tobacco use Yes Overview Signed 05/01/2024 8:37 PM by Marylu Carvajal APRN, DNP Drug Safety Associate for smoking 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 Complicates all aspects of care and recovery NSTEMI (non-ST elevated myocardial infarction) (CMS/HCC) Yes Overview Addendum 05/22/2024 11:00 AM by Jose Aburto MD Diagnosed at OSH with elevated troponins of 0.05 to 0.23 to 0.16 Started on heparin drip GLUER AND SLICER HAND, 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 Repeat troponins pending 05/07 [...] Addendum 05/23/2024 8:50 AM by Marybel Suarez, ACCOUNTS RECEIVABLE SPECIALIST Remains febrile with elevated EBC Cultures ordered and pending Thrombocytosis Yes Hypocalcemia Yes Hyperlipidemia Yes Overview Signed 05/23/2024 8:47 AM by Marybel Suarez, ACCOUNTS RECEIVABLE SPECIALIST Restart statin when no longer NPO THOM (obstructive sleep apnea) Yes Overview Addendum 05/23/2024 8:45 AM by Marybel Suarez, ACCOUNTS RECEIVABLE SPECIALIST Refusing home CPAP remains on NC S/P CABG x 4 Not Applicable Overview Addendum 05/23/2024 8:45 AM by Marybel Suarez, ACCOUNTS RECEIVABLE SPECIALIST 05/06 4vCABG w/ Dr. Austin Aspirin, statin, beta stacey as clinically appropriate Hypertension Yes Overview Addendum 05/23/2024 8:47 AM by DanielaMarybel sanchez APRN Metop IV while NPO Restart PO metop [...] and tobacco abuse. She initially presented to [facility]. She ruled in for NSTEMI and [...] Fluid Collection - possible reactive secondary to NM - WBC 12.8, afebrile - continue to [...] for help from now on. Cardiothoracic Surgery [phone] * Progress Notes - Lester Lazo RN [...] Stomal Appliance 1 piece;2 piece;Flat Barrier/Pouch;Flat Ring;Barrier [place]/Wipe 06/13/24 1100 Site Assessment Moist;[place];Raised 06/13/24 1100 Peristomal Assessment Intact;Clean 06/13/24 1100 [...] Margins Well-defined edges Jacey-Wound Assessment Intact Closure [place] (in the center of wound) Drainage Description [...] at another time * Progress Notes - Benja Trinitylois Anne APRN - 06/13/2024 10:57 AM EDT CVT Progress [...] and tobacco abuse. She initially presented to [facility]. She ruled in for NSTEMI and [...] Fluid Collection - possible reactive secondary to NM - WBC 12.8, afebrile - continue to [...] Continue wound vac changes MWF. Cardiothoracic Surgery [phone] * Care Plan - Alessandra Keene RN [...] Keene RN Body Position: weight shifting Taken 06/07/20242199 by Ashwin Odom RN Skin Protection: incontinence [...] Family/Caregiver Present: No Family/Caregiver: Other (Specify) (Friend) Water Purifier: Not Applicable Presentation Oxygen Therapy: None (Room [...] Mobility Bed Mobility Exam: Rolling/Turning Level of [place]: Maximum assist (25% patient effort) Physical/Nonphysical Assist: Verbal Cues, Nonverbal cues (demo/gestures), Additional assist utilized for safety, Moderate cues Bed Mobility Exam: Scooting/Bridging Level of [place]: Minimum assist (75% patient's effort) Physical/Nonphysical Assist: Verbal Cues, Nonverbal cues (demo/gestures) Assistive Device: (drawsheet) Bed Mobility Exam: Supine to Sit Level of [place]: Moderate assist (50% patient's effort) Physical/Nonphysical Assist: Verbal Cues, Set-up required, HOB elevated Transfers Transfer Exam: Sit to stand Level of [place]: Stand-by assist Physical/Nonphysical Assist: Verbal Cues, Set-up required Assistive Device: Rollator Transfer Exam: Stand to Sit Level of [place]: Stand-by assist Physical/Nonphysical Assist: Verbal Cues, Set-up [...] Care Family/Caregiver Present: No Family/Caregiver: Adult Son Water Purifier: Not Applicable Presentation Oxygen Therapy: None (Room [...] Mobility Bed Mobility Exam: Scooting/Bridging Level of [place]: Minimum assist (75% patient's effort) Physical/Nonphysical Assist: Verbal Cues, Nonverbal cues (demo/gestures) Assistive Device: Other (drawsheet) Bed Mobility Exam: Supine to Sit Level of [place]: Moderate assist (50% patient's effort) Physical/Nonphysical Assist: Verbal Cues, Set-up required, HOB elevated Assistive Device: Other (drawsheet) Bed Mobility Exam: Sit to Supine Level of [place]: Minimum assist (75% patient's effort) Physical/Nonphysical Assist: Nonverbal cues (demo/gestures), Verbal Cues, Additional assist utilized for safety Transfers Transfer Exam: Sit to stand Level of [place]: Stand-by assist Physical/Nonphysical Assist: Verbal Cues, Set-up required Assistive Device: Rollator Transfer Exam: Stand to Sit Level of [place]: Stand-by assist Physical/Nonphysical Assist: Verbal Cues, Set-up required Assistive Device: Rollator Toilet Transfer Level of [place]: Minimum assist (75% patient's effort) Physical/Nonphysical Assist: [...] and tobacco abuse. She initially presented to [facility]. She ruled in for NSTEMI and [...] Fluid Collection - possible reactive secondary to NM - WBC 12.8, afebrile - continue to [...] may have to restart TPN Cardiothoracic Surgery [phone] * Valentine Guerrero RN - 06/11/2024 7:01 PM EDT Images from the original note were not included. [id number] Colostomy: Managing Your Nutrition You don?t have [...] and other carbonated beverages. ?? Broccoli. ?? [place] sprouts. ?? Cabbage. ?? Cauliflower. ?? Vici. ?? Cucumbers. ?? Dried beans. ?? Milk and other dairy products with lactose. ?? Mushrooms. ?? Nuts. ?? Onions. ?? Peas. ?? Sodas. ?? Spicy foods. Foods that can cause odor include: ?? Asparagus. ?? Broccoli. ?? [place] sprouts. ?? Cabbage. ?? Cheese. ?? Eggs. [...] bleeds. Last Reviewed Date: 2024 00:00:00 ?? [id number] [employer]. All rights reserved. This information is not intended as a substitute for professional medical care. Always follow your healthcare professional's instructions. * Consults - Gretchen Brothers RD - 06/11/2024 3:41 PM EDT Adult Nutrition Evaluation Note Rere Hunter 53 y.o. female CSN: [id number] Room/Bed 117/117A Nutrition evaluation type: follow-up Reason for evaluation: Hospital course: 53 y.o. female presents for CABG evaluation. OR on 05/06. /: NPO x 5 days d/t ileus. Trial [...] reports persistent abd pain with PO intake. ACCOUNTS RECEIVABLE SPECIALIST present encourages pt to move to help [...] O2 Delivery Method: Nasal cannula with capnography [place] Coma Scale Score: 15 Shaan Scale Score: [...] (Calculated): 22.67 Weight Evaluation: Overweight (BMI 25-29.9) [place] Body Weight (kg): 47.7 Percent [place] Body Weight: 114 Adjusted Body Weight (kg): 50.9 Wt Readings from Last 10 Encounters: 06/11/24 54.4 kg (119 lb 14.9 oz) 06/28/23 59 kg (130 lb) 04/26/23 62.6 kg (138 lb) 01/18/23 61.7 kg (136 lb) Wt last f/u was 56.4 kg; 3.5% change if accurate. Estimated Needs: Kcal/ K-35 Kcal Provided: 1116-1298 Kcal Needs Based On: Current weight Gm Protein/ Kg : 1.5-2 Protein Provided: 81-109 Protein Needs Based On: Current weight Metabolic Cart Study Results: Current Nutrition Intake: Diet Supplements: Boost Very High Calorie, Roque Packet Diet Order: Adult Diet Diet Texture: Regular Adult Carbohydrate Restriction: Consistent CHO 2 (9977-6489 Channing, 80 g/meal) Fat Restriction: Cardiac Other [...] Provided: Will monitor Pertinent home medications: reviewed [place] needs: Nutrition Focused Physical Exam: Physical exam [...] once daily + Roque BID (located in Babyage utility). -Modifying Boost to magic cup -Document PO [...] hypokalemia requiring replacement On mechanically assisted ventilation ([facility]) 05/06/2024 Arrived to ICU intubated 05/07 extubated to 4C 05/08 resolved Tobacco use 05/01/2024 Drug Safety Associate for smoking 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 Complicates all [...] MD - 06/11/2024 9:57 AM EDT 06/11/24 Reer Hunter HPI CONSULT: colon perforation and fluid [...] 06/09/24 18506/09/24 1900 - 06/10/24 0659 06/10/24 0700 - 06/10/24 1859 06/10/24 1900 - 06/11/24 0659 06/11/24 0700 - [...] Addendum 05/23/2024 8:44 AM by Marybel Suarez, ACCOUNTS RECEIVABLE SPECIALIST Patient presented to OSH on 05/01/24 c/o chest pain, LHC reveal mvCAD S/p CABG with Dr. Austin on 05/07 Anxiety and depression Yes Overview Addendum 05/23/2024 8:43 AM by Marybel Suarez, ACCOUNTS RECEIVABLE SPECIALIST Continue home bupropion XL 300 mg daily Continue home citalopram 40 mg daily Continue PRN hydroxyzine 25 mg q6 COPD (chronic obstructive pulmonary disease) ([facility]) Yes Overview Addendum 05/23/2024 8:43 AM by Marybel Suarez, ARASH Duo nebs q6 Wean O2 for SPO2 goal >88% Tobacco use Yes Overview Signed 05/01/2024 8:37 PM by Marylu Carvajal APRN, DNP Drug Safety Associate for smoking 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 Complicates all aspects of care and recovery NSTEMI (non-ST elevated myocardial infarction) ([facility]) Yes Overview Addendum 05/22/2024 11:00 AM by Jose Aburto MD Diagnosed at OSH with elevated troponins of 0.05 to 0.23 to 0.16 Started on heparin drip GLUER AND SLICER HAND, 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 Repeat troponins pending 05/07 [...] Addendum 05/23/2024 8:50 AM by Marybel Suarez, ACCOUNTS RECEIVABLE SPECIALIST Remains febrile with elevated EBC Cultures ordered and pending Thrombocytosis Yes Hypocalcemia Yes Hyperlipidemia Yes Overview Signed 05/23/2024 8:47 AM by Marybel Suarez, ACCOUNTS RECEIVABLE SPECIALIST Restart statin when no longer NPO THOM (obstructive sleep apnea) Yes Overview Addendum 05/23/2024 8:45 AM by Marybel Suarez, ACCOUNTS RECEIVABLE SPECIALIST Refusing home CPAP remains on NC S/P CABG x 4 Not Applicable Overview Addendum 05/23/2024 8:45 AM by Marybel Suarez, ACCOUNTS RECEIVABLE SPECIALIST 05/06 4vCABG w/ Dr. Austin Aspirin, statin, beta stacey as clinically appropriate Hypertension Yes Overview Addendum 05/23/2024 8:47 AM by Marybel Suarez, ACCOUNTS RECEIVABLE SPECIALIST Metop IV while NPO Restart PO metop when appropriate Acute blood loss anemia (ABLA) No Overview Addendum 05/23/2024 8:43 AM by Marybel Suarez, ACCOUNTS RECEIVABLE SPECIALIST Lab Results Component Value Date HGB 9.0 [...] Overview Addendum 06/11/2024 8:52 AM by Uriah Ricadro PA Noted on CT scan 05/23/24 S/p [...] Note Rere Hunter 53 y.o. female CSN: [id number] Admission: 05/01/2024 11:01 PM Primary Problem: CAD, multiple vessel Anticipated Discharge Date: Additional Comments: RN EDWARD reviewed chart and met with primary team to discuss plan of care. Patient is not medically ready for discharge at this time, continue to encourage a PO diet. KRISTINA PATEL will continue to follow. Annika Perez RN [...] and tobacco abuse. She initially presented to [facility]. She ruled in for NSTEMI and [...] Fluid Collection - possible reactive secondary to NM - WBC 12.8, afebrile - continue to [...] and tobacco abuse. She initially presented to [facility]. She ruled in for NSTEMI and [...] Fluid Collection - possible reactive secondary to NM - WBC 12.8, afebrile - continue to [...] changes MWF. Mobilize as able. Cardiothoracic Surgery [phone] * Care Plan - Jenifer Reyes RN [...] Value Units Date/Time Blood Culture (Aerobic/Anaerobet Set) [[id number]] Collected: 05/23/24 1020 Order Status: Completed Specimen: Blood, Venous Updated: 05/24/24 1101 Culture No growth at day 1 Fungal Blood Culture [[id number]] Collected: 05/17/241812 Order Status: Completed Specimen: Blood, Venous Updated: 05/24/24 0638 Culture No Fungal Growth at 1 Week AFB Blood Culture [[id number]] Collected: 05/17/241812 Order Status: Completed Specimen: Blood, Venous Updated: 05/24/2438 AFB Culture No Mycobacterial Growth at 1 Week Vitals: Visit Vitals BP 114/73 (BP Location: Right arm, Patient Position: Lying) Pulse 92 Temp 36.9 ??C (98.4 ??F) (Oral) Resp 18 Jaida Coma Scale Score: 15 [...] Weight: 61.1 kg (134 lb 12.8 oz) [place] body weight: 47.8 kg (105 lb 4.8 oz) Adjusted ideal body weight: 52.8 kg (116 lb 5.7 oz) (126.25%) of IBW Body mass index is 25.13 kg/m??. Adjusted wt: 50.9 kg (if over 125% of IBW) CENTRAL IV Access: PICC (05/18/24) Estimated Nutritional Needs: HBE: 1153 Stress Factor: 1.2-1.4 Total Calories/day: 1446-7347 Protein (amino acids): 1.3-1.6 grams/kg Protein (Amino [...] you, Valentine Mack, PharmD, BCCCP Available via [employer] Secure Chat [1] Patient Active Problem List Diagnosis Anxiety and depression COPD (chronic obstructive pulmonary disease) ([facility]) CAD, multiple vessel NSTEMI (non-ST elevated myocardial infarction) ([facility]) GERD (gastroesophageal reflux disease) Leukocytosis Hyperlipidemia THOM (obstructive sleep apnea) S/P CABG x 4 Hypertension Cardiac volume overload Hypoglycemia Nausea with vomiting Acute blood loss anemia (ABLA) Gastric perforation ([facility]/HCC) On total parenteral nutrition (TPN) Ileus ([facility]) Electrolyte abnormality Colon perforation ([facility]) Post-op pain Delirium [2] Past Medical History: Diagnosis Date Anxiety COPD (chronic obstructive pulmonary disease) ([facility]) 05/01/2024 Continue Duo nebs q6 SPO2 goal >88% Depression GERD (gastroesophageal reflux disease) 05/01/2024 Continue Protonix 40 mg daily Hyperkalemia 05/06/2024 Now resolved, pt with hypokalemia requiring replacement On mechanically assisted ventilation (CMS/HCC) 05/06/2024 Arrived to ICU intubated 05/07 extubated to 4LNC 05/08 resolved Tobacco use 05/01/2024 Drug Safety Associate for smoking 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 Complicates all [...] growth to date - Wound Vac changes [facility] Cardiothoracic Surgery [phone] * Care Plan - Cyndie Jackson RN [...] extended L colectomy and end colostomy creation ([facility]) 06/04: IR-guided drain Interval: VSS AF on RA. Drain 1 10 (5). LLQ 20 (50), ostomy 200 (155). On TPN and regular diet. Tolerating her diet but without much of an appetite. She reports eating some food. No nausea or vomiting. Calorie count pending. Continues to have bowel function. Edited by: Duane Cruz MD at 06/08/2024 7946 Relevant review of systems was obtained as [...] Addendum 05/23/2024 8:44 AM by Marybel Suarez, ACCOUNTS RECEIVABLE SPECIALIST Patient presented to OSH on 05/01/24 c/o chest pain, LHC reveal mvCAD S/p CABG with Dr. Austin on 05/07 Anxiety and depression Yes Overview Addendum 05/23/2024 8:43 AM by Marybel Suarez, ACCOUNTS RECEIVABLE SPECIALIST Continue home bupropion XL 300 mg daily Continue home citalopram 40 mg daily Continue PRN hydroxyzine 25 mg q6 COPD (chronic obstructive pulmonary disease) ([facility]) Yes Overview Addendum 05/23/2024 8:43 AM by Marybel Suarez, ARASH Duo nebs q6 Wean O2 for SPO2 goal >88% NSTEMI (non-ST elevated myocardial infarction) ([facility]) Yes Overview Addendum 05/22/2024 11:00 AM by Jose Aburto MD Diagnosed at OSH with elevated troponins of 0.05 to 0.23 to 0.16 Started on heparin drip GLUER AND SLICER HAND, 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 Repeat troponins pending 05/07 [...] Signed 05/23/2024 8:47 AM by Marybel Suarez, ACCOUNTS RECEIVABLE SPECIALIST Restart statin when no longer NPO THOM [...] No Overview Addendum 05/23/2024 8:46 AM by Marbyel Suarez APRN Resolved once TPN started Nausea with vomiting No Overview Addendum 05/28/2024 8:26 AM by Sidney Jackson MD TPN running Advance PO diet as able Acute blood loss anemia (ABLA) No Overview Addendum 05/23/2024 8:43 AM by Marybel Suarez, ACCOUNTS RECEIVABLE SPECIALIST Lab Results Component Value Date HGB 9.0 [...] and pain 1010 Increase dilaudid IV ketamine Delirium Unknown Overview [...] Progress Note Visit Date: 06/08/2024 Patient Name: Rree Hunter Date of : 1970 Education Patient [...] 1507 Stomal Appliance 2 piece;Flat Barrier/Pouch;Flat Ring;Barrier [place]/Wipe 06/08/24 1507 Site Assessment Moist;Raised;Red 06/08/24 1507 Peristomal Assessment Intact;Clean 06/08/24 1507 Treatment Bag change;Site care 06/08/24 1507 Output (mL) 250 mL 06/08/24 1507 Gastric Output Appearance Watery 06/08/24 1507 Gastric Output Color Brown 06/08/24 1507 L[facility] Lazo [facility] 06/08/2024 3:10 PM * Consults - Garrett Ruiz - 06/08/2024 9:25 AM EDTAssociated Order(s): [...] RD note 06/07 Kcal/ K-35 Kcal Provided: 9418-6428 Kcal Needs Based On: Current weight Gm Protein/ Kg : 1.5-2 Protein Provided: 81-109 Protein Needs Based On: Current weight 06/08: Calorie count results: 06/04: ~658kcal; 26g protein 06/05: ~65kcal; 3g protein 06/06: ~66kcal; 4g protein 3-day ave (06/04-06/06) = 263kcal; 11g protein. Patient meeting ~14-16%kcal; 10- 13% protein needs. RD to follow. Garrett Ruiz DTR * Progress Notes - Dulce Alamo, ACCOUNTS RECEIVABLE SPECIALIST - 06/08/2024 9:11 AM EDT CVT Progress [...] - Follow cultures - Wound Vac changes [facility] Cardiothoracic Surgery [phone] * Progress Notes - Db Kline - [...] Value Units Date/Time Blood Culture (Aerobic/Anaerobet Set) [[id number]] Collected: 05/23/24 1020 Order Status: Completed Specimen: Blood, Venous Updated: 05/24/24 1101 Culture No growth at day 1 Fungal Blood Culture [[id number]] Collected: 05/17/241812 Order Status: Completed Specimen: Blood, Venous Updated: 05/24/24 0638 Culture No Fungal Growth at 1 Week AFB Blood Culture [[id number]] Collected: 05/17/241812 Order Status: Completed Specimen: Blood, Venous Updated: 05/24/2438 AFB Culture No Mycobacterial Growth at 1 Week Vitals: Visit Vitals BP 98/63 (BP Location: Right arm, Patient Position: Lying) Pulse 87 Temp 36.7 ??C (98 ??F) (Oral) Resp 17 [place] Coma Scale Score: 15 Shaan Scale Score: [...] High Calorie - Vanilla One Dinner supplement: Rouqe Fruit Punch Quantity for Dinner of Roque [...] Weight: 61.1 kg (134 lb 12.8 oz) [place] body weight: 47.8 kg (105 lb 4.8 oz) Adjusted ideal body weight: 52.8 kg (116 lb 5.7 oz) (126.25%) of IBW Body mass index is 25.13 kg/m??. Adjusted wt: 50.9 kg (if over 125% of IBW) CENTRAL IV Access: PICC (05/18/24) Estimated Nutritional Needs: HBE: 1153 Stress Factor: 1.2-1.4 Total Calories/day: 3777-4807 Protein (amino acids): 1.3-1.6 grams/kg Protein (Amino [...] and depression COPD (chronic obstructive pulmonary disease) ([facility]) CAD, multiple vessel NSTEMI (non-ST elevated myocardial infarction) ([facility]) GERD (gastroesophageal reflux disease) Leukocytosis Hyperlipidemia THOM (obstructive sleep apnea) S/P CABG x 4 Hypertension Cardiac volume overload Hypoglycemia Nausea with vomiting Acute blood loss anemia (ABLA) Gastric perforation ([facility]/HCC) On total parenteral nutrition (TPN) Ileus ([facility]/HCC) Electrolyte abnormality Colon perforation ([facility]) Post-op pain Delirium [2] Past Medical History: Diagnosis Date Anxiety COPD (chronic obstructive pulmonary disease) ([facility]/HCC) 05/01/2024 Continue Duo nebs q6 SPO2 goal >88% Depression GERD (gastroesophageal reflux disease) 05/01/2024 Continue Protonix 40 mg daily Hyperkalemia 05/06/2024 Now resolved, pt with hypokalemia requiring replacement On mechanically assisted ventilation ([facility]) 05/06/2024 Arrived to ICU intubated 05/07 extubated to 4LNC 05/08 resolved Tobacco use 05/01/2024 Drug Safety Associate for smoking 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 Complicates all [...] Outcome: Ongoing, Progressing * Consults - Gretchen Brothers, RD - 06/07/2024 12:23 PM EDT Adult Nutrition Evaluation Note Rere Hunter 53 y.o. female CSN: [id number] Room/Bed 117/117A Nutrition evaluation type: follow-up Reason [...] reports persistent abd pain with PO intake. ACCOUNTS RECEIVABLE SPECIALIST present encourages pt to move to help [...] (Calculated): 23.51 Weight Evaluation: Overweight (BMI 25-29.9) [place] Body Weight (kg): 47.7 Percent [place] Body Weight: 118 Adjusted Body Weight (kg): 50.9 Wt Readings from Last 10 Encounters: 06/07/24 56.4 kg (124 lb 5.4 oz) 06/28/23 59 kg (130 lb) 04/26/23 62.6 kg (138 lb) 01/18/23 61.7 kg (136 lb) Estimated Needs: Kcal/ K-35 Kcal Provided: 9187-3253 Kcal Needs Based On: Current weight Gm Protein/ Kg : 1.5-2 Protein Provided: 81-109 Protein Needs Based On: Current weight Metabolic Cart Study Results: Current Nutrition Intake: Diet Supplements: Roque Packet, Boost Very High Calorie Diet Order: Adult Diet Diet Texture: Regular Adult Carbohydrate Restriction: Consistent CHO 2 (7688-8132 Channing, 80 g/meal) Fat Restriction: Cardiac Other [...] Provided: Will monitor Pertinent home medications: reviewed [place] needs: Nutrition Focused Physical Exam: Physical exam [...] once daily + Roque BID (located in [employer] utility). -Document PO intake in flowsheet Nutrition [...] Date Anxiety COPD (chronic obstructive pulmonary disease) ([facility]) 05/01/2024 Continue Duo nebs q6 SPO2 goal >88% Depression GERD (gastroesophageal reflux disease) 05/01/2024 Continue Protonix 40 mg daily Hyperkalemia 05/06/2024 Now resolved, pt with hypokalemia requiring replacement On mechanically assisted ventilation ([facility]) 05/06/2024 Arrived to ICU intubated 05/07 extubated to [facility] 05/08 resolved Tobacco use 05/01/2024 Drug Safety Associate for smoking 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 Complicates all [...] 3. Cardiac volume overload 4. Colon perforation ([facility]) 5. Abdominal fluid collection Procedures 05/23/2024 Procedure(s): LAPAROTOMY, EXPLORATORY, possible bowel resection, possible ostomy COLECTOMY, PARTIAL Past Medical History Patient has a past medical history of Anxiety, COPD (chronic obstructive pulmonary disease) ([facility]) (05/01/2024), Depression, GERD (gastroesophageal reflux disease) (05/01/2024), Hyperkalemia (05/06/2024), On mechanically assisted ventilation ([facility]) (05/06/2024), Tobacco use (05/01/2024), and T remor (05/01/2024). Past Surgical History Patient has a past surgical history that includes section, classic; Cholecystectomy; Shoulder surgery; Abdominal adhesion surgery; Hand surgery (Right); and Coronary artery bypass graft (05/06/2024). Precautions Medical Precautions: Fall precautions, Sternal Subjective Pt agreeable to participate in OT session. Participants in Care Family/Caregiver Present: No Family/Caregiver: Adult Son Water Purifier: Not Applicable Presentation Oxygen Therapy: None (Room [...] admission Level of Mobility: Ambulatory- community Mobility Mackay: Independent gait without device (pt is the [...] Mobility Bed Mobility Exam: Scooting/Bridging Level of Mackay: Maximum assist (25% patient's effort) (Seated scooting hips towards EOB withuse of draw sheet.) Physical/Nonphysical Assist: Verbal Cues, Nonverbal cues (demo/gestures) Assistive Device: Other (draw sheet) Bed Mobility Exam: Supine to Sit Level of Mackay: Maximum assist (25% patient's effort) Physical/Nonphysical Assist: Verbal Cues, Set-up required Assistive Device: Other (drawsheet) Bed Mobility Exam: Sit to Supine Level of Mackay: Minimum assist (75% patient's effort) Physical/Nonphysical Assist: Nonverbal cues (demo/gestures), Verbal Cues, Additional assist utilized for safety Transfers Transfer Exam: Sit to stand Level of Mackay: Contact guard Physical/Nonphysical Assist: Verbal Cues, Set-up required Assistive Device: Rollator Transfer Exam: Stand to Sit Level of Mackay: Contact guard Physical/Nonphysical Assist: Verbal Cues, Set-up required Assistive Device: Rollator Toilet Transfer Level of Mackay: Minimum assist (75% patient's effort) Physical/Nonphysical Assist: [...] dynamic balance and safety awareness. Standardized Assessments [facility] 6-Click Daily Activities Help from Other: Don/Doff Regular Lower Body Clothings: Little Help From Other: Bathing: Little Help From Other: Toileting: Little Help From Other: Don/Doff Upper Body Clothings: Little Help From Other: Grooming: Little Help From Other: Eating Meals: None [facility] 6 Click - Daily Activities Score: 19 [...] 3. Cardiac volume overload 4. Colon perforation ([facility]) 5. Abdominal fluid collection Procedures 05/23/2024 Procedure(s): LAPAROTOMY, EXPLORATORY, possible bowel resection, possible ostomy COLECTOMY, PARTIAL Past Medical History Patient has a past medical history of Anxiety, COPD (chronic obstructive pulmonary disease) ([facility]) (05/01/2024), Depression, GERD (gastroesophageal reflux disease) (05/01/2024), Hyperkalemia (05/06/2024), On mechanically assisted ventilation ([facility]) (05/06/2024), Tobacco use (05/01/2024), and T remor [...] admission Level of Mobility: Ambulatory- community Mobility Mackay: Independent gait without device (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 Positioned for comfort at end of session with pillow support provided. Delirium Screening [place] Agitation Sedation Scale (RASS): Alert and calm [...] Mobility Bed Mobility Exam: Scooting/Bridging Level of Mackay: Maximum assist (25% patient's effort) Physical/Nonphysical Assist: Verbal Cues, Set-up required, Additional assist utilized for safety Assistive Device: Other (draw sheet to scoot to EOB) Bed Mobility Exam: Supine to Sit Level of Mackay: Maximum assist (25% patient's effort) Physical/Nonphysical Assist: Verbal Cues, Set-up required Assistive Device: Other (draw sheet) Bed Mobility Exam: Sit to Supine Level of Mackay: Minimum assist (75% patient's effort) Physical/Nonphysical Assist: Nonverbal cues (demo/gestures), Verbal Cues, Additional assist utilized for safety Transfers Transfer Exam: Sit to stand Level of Mackay: Contact guard Physical/Nonphysical Assist: Verbal Cues, Set-up required Assistive Device: Rollator Transfer Exam: Stand to Sit Level of Mackay: Contact guard Physical/Nonphysical Assist: Verbal Cues, Set-up required Assistive Device: Rollator Toilet Transfer Level of Mackay: Minimum assist (75% patient's effort) Physical/Nonphysical Assist: [...] 3-5 steps with a railing?: A little [facility] 6-Clicks Mobility Assessment Total : 17 No data recorded Standardized Assessments Standardized Assessments Standardized Assessments: [facility] 6-Clicks Mobility Assessment [facility] 6-Clicks Mobility Assessment Difficulty patient has turning [...] 3-5 steps with a railing?: A little [facility] 6-Clicks Mobility Assessment Total : 17 No [...] 0606/04/24 0556 06/03/24 0108 06/02/24 0708 06/02/24 0102 06/01/24 0120 GLUCOSE mg/dL 124* 406* 125* 105* [...] Value Units Date/Time Blood Culture (Aerobic/Anaerobet Set) [[id number]] Collected: 05/23/24 1020 Order Status: Completed Specimen: Blood, Venous Updated: 05/24/24 1101 Culture No growth at day 1 Fungal Blood Culture [[id number]] Collected: 05/17/241812 Order Status: Completed Specimen: Blood, Venous Updated: 05/24/24 0638 Culture No Fungal Growth at 1 Week AFB Blood Culture [[id number]] Collected: 05/17/241812 Order Status: Completed Specimen: Blood, Venous Updated: 05/24/24 0638 AFB Culture No Mycobacterial Growth at 1 Week Vitals: Visit Vitals BP 120/75 (BP Location: Right arm, Patient Position: Lying) Pulse 91 Temp 36.7 ??C (98 ??F) (Oral) Resp 21 Jaida Coma Scale Score: 15 Shaan Scale [...] Weight: 61.1 kg (134 lb 12.8 oz) [place] body weight: 47.8 kg (105 lb 4.8 oz) Adjusted ideal body weight: 52.8 kg (116 lb 5.7 oz) (126.25%) of IBW Body mass index is 25.13 kg/m??. Adjusted wt: 50.9 kg (if over 125% of IBW) CENTRAL IV Access: PICC (05/18/24) Estimated Nutritional Needs: HBE: 1153 Stress Factor: 1.2-1.4 Total Calories/day: 9438-2313 Protein (amino acids): 1.3-1.6 grams/kg Protein (Amino [...] multiple vessel NSTEMI (non-ST elevated myocardial infarction) ([facility]) GERD (gastroesophageal reflux disease) Leukocytosis Hyperlipidemia THOM (obstructive sleep apnea) S/P CABG x 4 Hypertension Cardiac volume overload Hypoglycemia Nausea with vomiting Acute blood loss anemia (ABLA) Gastric perforation ([facility]/HCC) On total parenteral nutrition (TPN) Ileus ([facility] [facility] Electrolyte abnormality Colon perforation ([facility]) Post-op pain Delirium [2] Past Medical History: Diagnosis Date Anxiety COPD (chronic obstructive pulmonary disease) ([facility]) 05/01/2024 Continue Duo nebs q6 SPO2 goal >88% Depression GERD (gastroesophageal reflux disease) 05/01/2024 Continue Protonix 40 mg daily Hyperkalemia 05/06/2024 Now resolved, pt with hypokalemia requiring replacement On mechanically assisted ventilation ([facility]) 05/06/2024 Arrived to ICU intubated 05/07 extubated to 4LNC 05/08 resolved Tobacco use 05/01/2024 Drug Safety Associate for smoking 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 Complicates all [...] placed in IR Follow cultures Cardiothoracic Surgery [phone] * Progress Notes - Heather Ram - 06/07/2024 8:28 AM EDT Case Management Adult Progress Note Rere Hunter 53 y.o. female CSN: [id number] Admission: 05/01/2024 11:01 PM Primary Problem: CAD, [...] jacey wound prepped with cavalon and drape, Khush[place] strip at edge near ostomy for seal, [...] 1030 Stomal Appliance 2 piece;Flat Barrier/Pouch;Flat Ring;Barrier [place]/Wipe 06/06/24 1030 Site Assessment Intact;Moist;Raised;Red 06/06/24 1030 Peristomal Assessment Clean;Intact 06/06/24 1030 Treatment Bag change;Site care 06/06/24 1030 Output (mL) 250 mL 06/06/24 0400 Gastric Output Appearance Watery 06/06/24 1030 Gastric Output Color Brown 06/06/24 1030 [facility] 06/06/2024 12:43 PM * Progress Notes - [...] in IR 06/04 Follow cultures Cardiothoracic Surgery [phone] * Progress Notes - Carmelita Snyder MD [...] mg q6 COPD (chronic obstructive pulmonary disease) ([facility]) Yes Overview Addendum 05/23/2024 8:43 AM by Marybel Suarez APRN Duo nebs q6 Wean O2 for SPO2 goal >88% NSTEMI (non-ST elevated myocardial infarction) ([facility]) Yes Overview Addendum 05/22/2024 11:00 AM by Jose Aburto MD Diagnosed at OSH with elevated troponins of 0.05 to 0.23 to 0.16 Started on heparin drip GLUER AND SLICER HAND, 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 Repeat troponins pending 05/07 [...] Signed 05/23/2024 8:47 AM by Marybel Suarez, ACCOUNTS RECEIVABLE SPECIALIST Restart statin when no longer NPO THOM (obstructive sleep apnea) Yes Overview Addendum 05/23/2024 8:45 AM by Marybel Suarez, ACCOUNTS RECEIVABLE SPECIALIST Refusing home CPAP remains on NC S/P CABG x 4 Not Applicable Overview Addendum 05/23/2024 8:45 AM by Marybel Suarez, ARASH 05/06 4vCABG w/ Dr. Austin Aspirin, statin, beta stacey as clinically appropriate Hypertension Yes Overview Addendum 05/23/2024 8:47 AM by Marybel Suarez, ACCOUNTS RECEIVABLE SPECIALIST Metop IV while NPO Restart PO metop when appropriate Cardiac volume overload No Overview Addendum 05/18/2024 10:24 AM by Sidney Jackson MD Diuresis as clinically indicated Hypoglycemia No Overview Addendum 05/23/2024 8:46 AM by Marybel Suarez, ACCOUNTS RECEIVABLE SPECIALIST Resolved once TPN started Nausea with vomiting No Overview Addendum 05/28/2024 8:26 AM by Sidney Jackson MD TPN running Advance PO diet as able Acute blood loss anemia (ABLA) No Overview Addendum 05/23/2024 8:43 AM by Marybel Suarez, ACCOUNTS RECEIVABLE SPECIALIST Lab Results Component Value Date HGB 9.0 [...] 98 97 93* 95* 95* CO2 mmol/L 24 23 21* 20* 20* 25 CALCIUM mg/dL [...] Value Units Date/Time Blood Culture (Aerobic/Anaerobet Set) [[id number]] Collected: 05/23/24 1020 Order Status: Completed Specimen: Blood, Venous Updated: 05/24/24 1101 Culture No growth at day 1 Fungal Blood Culture [[id number]] Collected: 05/17/241812 Order Status: Completed Specimen: Blood, Venous Updated: 05/24/24 0638 Culture No Fungal Growth at 1 Week AFB Blood Culture [[id number]] Collected: 05/17/241812 Order Status: Completed Specimen: Blood, [...] 65 mL/hr, Last Rate: 65 mL/hr (06/05/24 7481) Current Anthropometrics: Height: 154.9 cm (5' 0.98 ) Weight: 61.1 kg (134 lb 12.8 oz) [place] body weight: 47.8 kg (105 lb 4.8 oz) Adjusted ideal body weight: 52.8 kg (116 lb 5.7 oz) (126.25%) of IBW Body mass index is 25.13 kg/m??. Adjusted wt: 50.9 kg (if over 125% of IBW) CENTRAL IV Access: PICC (05/18/24) Estimated Nutritional Needs: HBE: 1153 Stress Factor: 1.2-1.4 Total Calories/day: 7204-7491 Protein (amino acids): 1.3-1.6 grams/kg Protein (Amino [...] room. Thank you! Marysol Hurtado, PharmD PGY1 Cement Mixer Available via secure chat [1] Patient Active Problem List Diagnosis Anxiety and depression COPD (chronic obstructive pulmonary disease) ([facility]) CAD, multiple vessel NSTEMI (non-ST elevated myocardial infarction) ([facility]) GERD (gastroesophageal reflux disease) Leukocytosis Hyperlipidemia THOM (obstructive sleep apnea) S/P CABG x 4 Hypertension Cardiac volume overload Hypoglycemia Nausea with vomiting Acute blood loss anemia (ABLA) Gastric perforation ([facility]/HCC) On total parenteral nutrition (TPN) Ileus (CMS/HCC) Electrolyte abnormality Colon perforation ([facility]) Post-op pain Delirium [2] Past Medical History: Diagnosis Date Anxiety COPD (chronic obstructive pulmonary disease) (CMS/HCC) 05/01/2024 Continue Duo nebs q6 SPO2 goal >88% Depression GERD (gastroesophageal reflux disease) 05/01/2024 Continue Protonix 40 mg daily Hyperkalemia 05/06/2024 Now resolved, pt with hypokalemia requiring replacement On mechanically assisted ventilation ([facility]) 05/06/2024 Arrived to ICU intubated 05/07 extubated to 4LNC 05/08 resolved Tobacco use 05/01/2024 Drug Safety Associate for smoking 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 Complicates all [...] troponins of 0.05 to 0.23 to 0.16 [facility] reveal mvCAD - S/p CABG x4 [...] LDL 160 - rosuvastatin 40mg po daily THOM (Obstructive Sleep Apnea) [...] in IR 06/04 Follow cultures Cardiothoracic Surgery [id number] * Progress Notes - Keisha Sabillon - 06/05/2024 10:27 AM EDT Occupational Therapy Treatment Patient Name: Rere Hunter Today's Date: 06/05/2024 OT Discharge Recommendations: LTACH Equipment Recommended: Defer to facility Subjective Pt agreeable to participate in OT session. Participants in Care Family/Caregiver Present: No Family/Caregiver: Adult Son Water Purifier: Not Applicable Presentation Oxygen Therapy: None (Room [...] Mobility Bed Mobility Exam: Scooting/Bridging Level of [place]: Maximum assist (25% patient's effort) (Seated scooting hips towards EOB withuse of draw sheet.) Physical/Nonphysical Assist: Verbal Cues, Nonverbal cues (demo/gestures) Assistive Device: Other (draw sheet) Bed Mobility Exam: Supine to Sit Level of [place]: Moderate assist (50% patient's effort) (For trunk upright.) Physical/Nonphysical Assist: Verbal Cues, Nonverbal cues (demo/gestures), Additional assist utilized for safety Assistive Device: Other (draw sheet) Bed Mobility Exam: Sit to Supine Level of [place]: Minimum assist (75% patient's effort) Physical/Nonphysical Assist: Nonverbal cues (demo/gestures), Verbal Cues, Additional assist utilized for safety Transfers Transfer Exam: Sit to stand Level of [place]: Contact guard Physical/Nonphysical Assist: Verbal Cues, Set-up required, 1 person + 1 person to manage equipment Assistive Device: Rollator Transfer Exam: Stand to Sit Level of [place]: Contact guard Physical/Nonphysical Assist: Verbal Cues, 1 person + 1 person to manage equipment, Set-up required Assistive Device: Rollator Toilet Transfer Level of [place]: Minimum assist (75% patient's effort) Physical/Nonphysical Assist: [...] Mobility Bed Mobility Exam: Scooting/Bridging Level of [place]: Maximum assist (25% patient's effort) Physical/Nonphysical Assist: Verbal Cues, Set-up required, Additional assist utilized for safety Assistive Device: Other (draw sheet to scoot to EOB) Bed Mobility Exam: Supine to Sit Level of [place]: Maximum assist (25% patient's effort) Physical/Nonphysical Assist: Verbal Cues, Set-up required, Additional assist utilized for safety Bed Mobility Exam: Sit to Supine Level of [place]: Minimum assist (75% patient's effort) Physical/Nonphysical Assist: Nonverbal cues (demo/gestures), Verbal Cues, Additional assist utilized for safety Transfers Transfer Exam: Sit to stand Level of [place]: Contact guard Physical/Nonphysical Assist: Verbal Cues, Set-up required, 1 person + 1 person to manage equipment Assistive Device: Rollator Transfer Exam: Stand to Sit Level of [place]: Contact guard Physical/Nonphysical Assist: Verbal Cues, 1 [...] PM. * Progress Notes - Marysol Hurtado PharmJoelle - 06/05/2024 8:24 AM EDT Pharmacist TPN [...] Value Units Date/Time Blood Culture (Aerobic/Anaerobet Set) [[id number]] Collected: 05/23/24 1020 Order Status: Completed Specimen: Blood, Venous Updated: 05/24/24 1101 Culture No growth at day 1 Fungal Blood Culture [[id number]] Collected: 05/17/241812 Order Status: Completed Specimen: Blood, Venous Updated: 05/24/2438 Culture No Fungal Growth at 1 Week AFB Blood Culture [[id number]] Collected: 05/17/241812 Order Status: Completed Specimen: Blood, Venous Updated: 05/24/24637 AFB Culture No Mycobacterial Growth at 1 Week Vitals: Visit Vitals BP 105/65 (BP Location: Right arm, Patient Position: Lying) Pulse 84 Temp 36.9 ??C (98.5 ??F) (Oral) Resp 17 [place] Coma Scale Score: 15 Shaan Scale Score: [...] Weight: 61.1 kg (134 lb 12.8 oz) [place] body weight: 47.8 kg (105 lb 4.8 oz) Adjusted ideal body weight: 52.8 kg (116 lb 5.7 oz) (126.25%) of IBW Body mass index is 25.13 kg/m??. Adjusted wt: 50.9 kg (if over 125% of IBW) CENTRAL IV Access: PICC (05/18/24) Estimated Nutritional Needs: HBE: 1153 Stress Factor: 1.2-1.4 Total Calories/day: 6564-6142 Protein (amino acids): 1.3-1.6 grams/kg Protein (Amino [...] plan with the IV room. Thank you! Mayrsol Hurtado, PharmD PGY1 Cement Mixer Available via secure chat [1] Patient Active Problem List Diagnosis Anxiety and depression COPD (chronic obstructive pulmonary disease) ([facility]) CAD, multiple vessel NSTEMI (non-ST elevated myocardial infarction) ([facility]) GERD (gastroesophageal reflux disease) Leukocytosis Hyperlipidemia THOM (obstructive sleep apnea) S/P CABG x 4 Hypertension Cardiac volume overload Hypoglycemia Nausea with vomiting Acute blood loss anemia (ABLA) Gastric perforation ([facility]) On total parenteral nutrition (TPN) Ileus ([facility]) Electrolyte abnormality Colon perforation ([facility]) Post-op pain Delirium [2] Past Medical History: Diagnosis Date Anxiety COPD (chronic obstructive pulmonary disease) ([facility]) 05/01/2024 Continue Duo nebs q6 SPO2 goal >88% Depression GERD (gastroesophageal reflux disease) 05/01/2024 Continue Protonix 40 mg daily Hyperkalemia 05/06/2024 Now resolved, pt with hypokalemia requiring replacement On mechanically assisted ventilation ([facility]) 05/06/2024 Arrived to ICU intubated 05/07 extubated to 4LNC 05/08 resolved Tobacco use 05/01/2024 Drug Safety Associate for smoking 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 Complicates all [...] extended L colectomy and end colostomy creation ([facility]) 06/04: IR-guided drain Interval: VSS. L abdominal LENA 5 (10), LUQ IR acordion 50, RUQ Colsotomy 340 (225). Resting this morning. Reports continued tenderness at drain site. Edited by: Carmelita Snyder MD at 06/05/2024 0742 Relevant review of systems was obtained [...] Addendum 05/23/2024 8:43 AM by Marybel Suarez, ACCOUNTS RECEIVABLE SPECIALIST Continue home bupropion XL 300 mg daily Continue home citalopram 40 mg daily Continue PRN hydroxyzine 25 mg q6 COPD (chronic obstructive pulmonary disease) ([facility]) Yes Overview Addendum 05/23/2024 8:43 AM by Marybel Suarez, ACCOUNTS RECEIVABLE SPECIALIST Duo nebs q6 Wean O2 for SPO2 goal >88% NSTEMI (non-ST elevated myocardial infarction) ([facility]) Yes Overview Addendum 05/22/2024 11:00 AM by Jose Aburto MD Diagnosed at OSH with elevated troponins of 0.05 to 0.23 to 0.16 Started on heparin drip GLUER AND SLICER HAND, 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 Repeat troponins pending 05/07 [...] Addendum 05/23/2024 8:50 AM by Marybel Suarez, ACCOUNTS RECEIVABLE SPECIALIST Remains febrile with elevated EBC Cultures ordered and pending Hyperlipidemia Yes Overview Signed 05/23/2024 8:47 AM by Marybel Suarez, ACCOUNTS RECEIVABLE SPECIALIST Restart statin when no longer NPO THOM (obstructive sleep apnea) Yes Overview Addendum 05/23/2024 8:45 AM by Marybel Suarez, ACCOUNTS RECEIVABLE SPECIALIST Refusing home CPAP remains on NC S/P CABG x 4 Not Applicable Overview Addendum 05/23/2024 8:45 AM by Marybel Suarez, ACCOUNTS RECEIVABLE SPECIALIST 05/06 4vCABG w/ Dr. Austin Aspirin, statin, beta stacey as clinically appropriate Hypertension Yes Overview Addendum 05/23/2024 8:47 AM by Marybel Suarez, ACCOUNTS RECEIVABLE SPECIALIST Metop IV while NPO Restart PO metop when appropriate Cardiac volume overload No Overview Addendum 05/18/2024 10:24 AM by Sidney Jackson MD Diuresis as clinically indicated Hypoglycemia No Overview Addendum 05/23/2024 8:46 AM by Marybel Suarez, ACCOUNTS RECEIVABLE SPECIALIST Resolved once TPN started Nausea with vomiting No Overview Addendum 05/28/2024 8:26 AM by Sidney Jackson MD TPN running Advance PO diet as able Acute blood loss anemia (ABLA) No Overview Addendum 05/23/2024 8:43 AM by Marybel Suarez, ACCOUNTS RECEIVABLE SPECIALIST Lab Results Component Value Date HGB 9.0 [...] Signed 05/23/2024 8:50 AM by Marybel Suarez, ACCOUNTS RECEIVABLE SPECIALIST - monitor and replace prn Post-op pain Unknown Overview Addendum 05/25/2024 10:12 AM by Dave Baird DO Abdominal tenderness and pain 11/23 Increase dilaudid IV ketamine Delirium Unknown Overview Signed 05/29/2024 2:56 PM by Sidney Jackson MD Hospital delirium Delirium precautions Colon perforation (CMS/HCC) Unknown Overview Addendum 05/24/2024 11:04 AM by Jose Aburto MD Noted on CT scan 4/9/25 To OR with blue surgery S/p left [...] Assessment Intact (slight PTSL from drape) Closure Lyle (few sheridan in center) Drainage Description Sanguineous;Serosanguineous [...] prior to follow up. Lester Lazo [facility] 06/04/2024 4:06 PM * Progress Notes - [...] 1601 Stomal Appliance 2 piece;Flat Barrier/Pouch;Flat Ring;Barrier [place]/Wipe 06/04/24 1601 Site Assessment Intact;Moist;Raised;Red 06/04/24 1601 [...] supplement intake for the active dates in [facility] under the I/O-Calorie Count section in the flow sheet. If no PO food consumed for a particular meal, please document 0% of meal . Results to follow. Garrett Ruiz DTR * Progress Notes - Shola Sheridan APRN - 06/04/2024 12:42 PM EDT CVT Progress [...] troponins of 0.05 to 0.23 to 0.16 [facility] reveal mvCAD - S/p CABG x4 [...] placement in IR Follow cultures Cardiothoracic Surgery [id number] * Consults - Gretchen Brothers RD - 06/04/2024 11:18 AM EDT Adult Nutrition Evaluation Note Rere Hunter 53 y.o. female CSN: [id number] Room/Bed 117/117A Nutrition evaluation type: follow-up Reason [...] O2 Delivery Method: Nasal cannula with capnography [place] Coma Scale Score: 15 Shaan Scale Score: 18 Joshua/Cubjennifer Pressure Risk Score: 45 Most Recent BM [...] (Calculated): 22.71 Weight Evaluation: Overweight (BMI 25-29.9) [place] Body Weight (kg): 47.7 Percent [place] Body Weight: 114 Adjusted Body Weight (kg): 50.9 Wt Readings from Last 10 Encounters: 06/04/24 54.5 kg (120 lb 2.4 oz) 06/28/23 59 kg (130 lb) 04/26/23 62.6 kg (138 lb) 01/18/23 61.7 kg (136 lb) Estimated Needs: Kcal/ K-35 Kcal Provided: 2651-5566 Kcal Needs Based On: Current weight Gm Protein/ Kg : 1.5-2 Protein Provided: 81-109 Protein Needs Based On: Current weight Metabolic Cart Study Results: Current Nutrition Intake: Diet Supplements: Roque Packet, Boost Very High Calorie Diet Order: NPO Diet Texture: Regular Adult Carbohydrate Restriction: Consistent CHO 2 (4810-5021 Channing, 80 g/meal) Fat Restriction: Cardiac Other [...] Provided: Will monitor Pertinent home medications: reviewed [place] needs: Nutrition Focused Physical Exam: Physical exam [...] Date Anxiety COPD (chronic obstructive pulmonary disease) ([facility]) 05/01/2024 Continue Duo nebs q6 SPO2 goal >88% Depression GERD (gastroesophageal reflux disease) 05/01/2024 Continue Protonix 40 mg daily Hyperkalemia 05/06/2024 Now resolved, pt with hypokalemia requiring replacement On mechanically assisted ventilation ([facility]) 05/06/2024 Arrived to ICU intubated 05/07 extubated to [facility] 05/08 resolved Tobacco use 05/01/2024 Drug Safety Associate for smoking 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 Complicates all [...] Lab Units 06/04/24 0556 06/03/24 0108 06/02/24 01006/01/24 0120 05/31/24 0250 05/30/24 0513 05/29/24 0535 [...] Value Units Date/Time Blood Culture (Aerobic/Anaerobet Set) [[id number]] Collected: 05/23/24 1020 Order Status: Completed Specimen: Blood, Venous Updated: 05/24/24 1101 Culture No growth at day 1 Fungal Blood Culture [[id number]] Collected: 05/17/241812 Order Status: Completed Specimen: Blood, Venous Updated: 05/24/24 0638 Culture No Fungal Growth at 1 Week AFB Blood Culture [[id number]] Collected: 05/17/241812 Order Status: Completed Specimen: Blood, Venous Updated: 05/24/24637 AFB Culture No Mycobacterial Growth at 1 Week Vitals: Visit Vitals BP 111/71 Pulse 81 Temp 36.8 ??C (98.3 ??F) (Oral) Resp 22 [place] Coma Scale Score: 15 Shaan Scale Score: [...] of Roque Fruit Punch Packet One 05/29/24 3797 Current Medications acetaminophen, 500 mg, Oral, q6h [...] Weight: 61.1 kg (134 lb 12.8 oz) [place] body weight: 47.8 kg (105 lb 4.8 oz) Adjusted ideal body weight: 52.8 kg (116 lb 5.7 oz) (126.25%) of IBW Body mass index is 25.13 kg/m??. Adjusted wt: 50.9 kg (if over 125% of IBW) CENTRAL IV Access: PICC (05/18/24) Estimated Nutritional Needs: HBE: 1153 Stress Factor: 1.2-1.4 Total Calories/day: 7583-9203 Protein (amino acids): 1.3-1.6 grams/kg Protein (Amino [...] and depression COPD (chronic obstructive pulmonary disease) ([facility]) CAD, multiple vessel NSTEMI (non-ST elevated myocardial infarction) ([facility]) GERD (gastroesophageal reflux disease) Leukocytosis Hyperlipidemia THOM (obstructive sleep apnea) S/P CABG x 4 Hypertension Cardiac volume overload Hypoglycemia Nausea with vomiting Acute blood loss anemia (ABLA) Gastric perforation ([facility]) On total parenteral nutrition (TPN) Ileus ([facility]) Electrolyte abnormality Colon perforation ([facility]) Post-op pain Delirium [2] Past Medical History: Diagnosis Date Anxiety COPD (chronic obstructive pulmonary disease) ([facility]/HCC) 05/01/2024 Continue Duo nebs q6 SPO2 goal >88% Depression GERD (gastroesophageal reflux disease) 05/01/2024 Continue Protonix 40 mg daily Hyperkalemia 05/06/2024 Now resolved, pt with hypokalemia requiring replacement On mechanically assisted ventilation (CMS/HCC) 05/06/2024 Arrived to ICU intubated 05/07 extubated to 4LNC 05/08 resolved Tobacco use 05/01/2024 Drug Safety Associate for smoking 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 Complicates all [...] from the original note were not included. [address] Taking Care of Your Flushable Drain Tube [...] right away. [facility], 1st floor [address], [address] [place] [address] Caring for your drain tube It is [...] and warm water or an alcohol-based hand quill cleaner ?? Disposable medical gloves - (optional) they [...] ?? Wipe the skin gently in a [place], moving away from the drain tube in [...] and warm water or an alcohol-based hand quill cleaner ?? Disposable medical gloves - (Optional) they [...] hands with soap and water or hand quill cleaner. They can also put on a new [...] syringe to the needleless port with a seyb-[id number] motion. 6. Flush the tube: Push on [...] original bottles. [facility], [address]st [address] [place] [address] * Nursing Note - Arsh Mueller RN [...] not available in floor stock, contact Materials [phone]. *Saline flushes can be supplied via [facility] to Beds. About the accordion drainage system [...] the drain. Contact the [facility] at [phone], or discuss at your next follow-up visit. [...] the drain system dry. Follow up with [facility] at [phone] for appointments or questions. Follow the [id number] directions in the Flushable Drain Care handout. [...] Follow up and other appointments with the [facility] First follow-up visit. We will call you to schedule a follow-up visit with the [facility]. You should be seen in our clinic within 2 weeks after leaving the hospital. If you have not been contacted to schedule this appointment, please contact the [facility] at [phone]. To schedule or reschedule a clinic visit, call [phone]. To reschedule a procedure, call our schedulers at [phone], option 4. [facility] location and phone number [facility], 1st floor [address], [address] [place] [address] In case of emergency For any emergency, please go to the nearest Emergency Room or dial 911. If you have questions or concerns about the drain Tuesday-Tuesday, 8 a.m.-4:30 p.m., call the [facility] at [phone]. After hours, weekends, and holidays, call [phone]. Ask for the Interventional Radiology provider television camera operator. Drainage Log You must keep a daily [...] Radiology Brief Postprocedure Note Attending: Dr. Elmore Sterile Processing Technician: None Pre-operative Diagnosis: Perisplenic fluid collection Post-operative [...] been discussed with the patient and/or their claim service representative. All questions answered and they agree [...] of Anxiety, COPD (chronic obstructive pulmonary disease) ([facility]) (05/01/2024), Depression, GERD (gastroesophageal reflux disease) (05/01/2024), Hyperkalemia (05/06/2024), On mechanically assisted ventilation ([facility]) (05/06/2024), Tobacco use (05/01/2024), and Tremor (05/01/2024). [...] tablet 500 mg 500 mg Oral q6h [facility] Radha Dickerson, DO 500 mg at Adult 2-in-1 TPN [...] day Maite Austin MD 20.8 mL/hr at 06/03/24 0959 250 mL at 06/03/24 0959 [Held by provider] heparin (porcine) injection 5,000 [...] mg 25 mg Oral q6h PRN Shola Sheirdan APRN 25 mg at 06/03/242122 ipratropium-albuterol (Duo-Neb) [...] MD 120 mg at 250 sodium chloride ([place]) 0.65 % nasal spray 1 spray 1 [...] Note Rere Hunter 53 y.o. female CSN: [id number] Admission: 05/01/2024 11:01 PM Primary Problem: CAD, [...] - 06/04/2024 8:00 AM EDT 06/04/24 Rere Cruz Hugh HPI CONSULT: colon perforation and fluid collection [...] by Drain (mL) 06/02/24 0700 - 06/02/24 1859 06/02/24 1900 - 06/03/24 0659 06/03/24 07 - [...] mg q6 COPD (chronic obstructive pulmonary disease) ([facility]) Yes Overview Addendum 05/23/2024 8:43 AM by Marybel Suarez APRN Duo nebs q6 Wean O2 for SPO2 goal >88% NSTEMI (non-ST elevated myocardial infarction) ([facility]) Yes Overview Addendum 05/22/2024 11:00 AM by Jose Aburto MD Diagnosed at OSH with elevated troponins of 0.05 to 0.23 to 0.16 Started on heparin drip GLUER AND SLICER HAND, 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 Repeat troponins pending 05/07 [...] Signed 05/23/2024 8:47 AM by Marybel Suarez, ACCOUNTS RECEIVABLE SPECIALIST Restart statin when no longer NPO THOM (obstructive sleep apnea) Yes Overview Addendum 05/23/2024 8:45 AM by Marybel Suarez, ACCOUNTS RECEIVABLE SPECIALIST Refusing home CPAP remains on NC S/P CABG x 4 Not Applicable Overview Addendum 05/23/2024 8:45 AM by Marybel Suarez, ACCOUNTS RECEIVABLE SPECIALIST 05/06 4vCABG w/ Dr. Austin Aspirin, statin, beta stacey as clinically appropriate Hypertension Yes Overview Addendum 05/23/2024 8:47 AM by Marybel Suarez, ACCOUNTS RECEIVABLE SPECIALIST Metop IV while NPO Restart PO metop when appropriate Cardiac volume overload No Overview Addendum 05/18/2024 10:24 AM by Sidney Jackson MD Diuresis as clinically indicated Hypoglycemia No Overview Addendum 05/23/2024 8:46 AM by Marybel Suarez, ACCOUNTS RECEIVABLE SPECIALIST Resolved once TPN started Nausea with vomiting No Overview Addendum 05/28/2024 8:26 AM by Sidney Jackson MD TPN running Advance PO diet as able Acute blood loss anemia (ABLA) No Overview Addendum 05/23/2024 8:43 AM by Marybel Suarez, ACCOUNTS RECEIVABLE SPECIALIST Lab Results Component Value Date HGB 9.0 [...] documented. * Progress Notes - Shola Sheridan, ARASH - 06/03/2024 1:40 PM EDT CVT Progress [...] TPN, 65 mL/hr, Last Rate: 65 mL/hr (06/02/247) PRN medications: benzocaine-menthol, calcium carbonate, hydrALAZINE, HYDROmorphone [...] for IR abscess drainage tomorrow Cardiothoracic Surgery [phone] * Progress Notes - Uriah Sherman, PharmD [...] Value Units Date/Time Blood Culture (Aerobic/Anaerobet Set) [[id number]] Collected: 05/23/24 1020 Order Status: Completed Specimen: Blood, Venous Updated: 05/24/24 1101 Culture No growth at day 1 Fungal Blood Culture [[id number]] Collected: 05/17/241812 Order Status: Completed Specimen: Blood, Venous Updated: 05/24/24 0638 Culture No Fungal Growth at 1 Week AFB Blood Culture [[id number]] Collected: 05/17/241812 Order Status: Completed Specimen: Blood, Venous Updated: 05/24/24 0638 AFB Culture No Mycobacterial Growth at 1 Week Vitals: Visit Vitals BP 123/74 (BP Location: Right arm, Patient Position: Lying) Pulse 80 Temp 36.8 ??C (98.2 ??F) (Oral) Resp 20 Jaida Coma Scale Score: 15 Shaan Scale Score: 18 Oxygen Therapy: None (Room air) Skin Integrity: Bruising (Thornton (ANOOP, glued), right colostomy, s/p chest tube sites, mid-abdominal wound vac (black foam), L SVG site (CYCLING INSTRUCTOR and glued)) Edema: Generalized Wt Readings from [...] Weight: 61.1 kg (134 lb 12.8 oz) [place] body weight: 47.8 kg (105 lb 4.8 oz) Adjusted ideal body weight: 52.8 kg (116 lb 5.7 oz) (126.25%) of IBW Body mass index is 25.13 kg/m??. Adjusted wt: 50.9 kg (if over 125% of IBW) CENTRAL IV Access: PICC (05/18/24) Estimated Nutritional Needs: HBE: 1153 Stress Factor: 1.2-1.4 Total Calories/day: 6000-0904 Protein (amino acids): 1.3-1.6 grams/kg Protein (Amino [...] the IV room. Thank you! Micheal Sherman, Delphine Trauma/Emergency General Surgery [1] Patient Active Problem [...] [facility] 05/08 resolved Tobacco use 05/01/2024 Drug Safety Associate for smoking 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 Complicates all [...] teaching at next available opportunity. Moni Lopez KRISTINA 06/02/2024 4:00 PM * Progress Notes - Arvin Shola M, ACCOUNTS RECEIVABLE SPECIALIST - 06/02/2024 1:39 PM EDT CVT Progress [...] TPN, 40 mL/hr, Last Rate: 40 mL/hr (06/01/242) Adult 2-in-1 TPN, 65 mL/hr PRN medications: [...] troponins of 0.05 to 0.23 to 0.16 [facility] reveal mvCAD - S/p CABG x4 [...] for IR procedure on Tuesday Cardiothoracic Surgery [phone] * Consults - Lorena Phillips APRN - [...] Date Anxiety COPD (chronic obstructive pulmonary disease) ([facility]) 05/01/2024 Continue Duo nebs q6 SPO2 goal >88% Depression GERD (gastroesophageal reflux disease) 05/01/2024 Continue Protonix 40 mg daily Hyperkalemia 05/06/2024 Now resolved, pt with hypokalemia requiring replacement On mechanically assisted ventilation ([facility]) 05/06/2024 Arrived to ICU intubated 05/07 extubated to [facility] 05/08 resolved Tobacco use 05/01/2024 Drug Safety Associate for smoking 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 Complicates all [...] is no recent study available for direct epqq-np-wgcs comparison. Assessment & Plan: Perisplenic fluid collection [...] the care of this patient. Lorena Phillips, ACCOUNTS RECEIVABLE SPECIALIST Interventional Radiology [phone] [1] Past Surgical History: Procedure Laterality Date [...] Austin MD, Last Rate: 40 mL/hr at 06/01/242, New Bag at 06/01/24 2242 Adult 2-in-1 [...] mg, Oral, 4x daily PRN, Shola Sheridan ACCOUNTS RECEIVABLE SPECIALIST,500 mg at 05/31/24 1054 citalopram (CeleXA) tablet [...] 3 mL, Nebulization, q6h PRN, Trinity Yousif, ACCOUNTS RECEIVABLE SPECIALIST, 3 mL at 05/17/24 1551 lidocaine (Lidoderm) [...] mg, 40 mg, Oral, Daily, Shola Sheridan, ACCOUNTS RECEIVABLE SPECIALIST, 40 mg at 06/02/24823 phenol (Chloraseptic) 1.4 [...] Nightly, Sidney Jackson MD, 40 mg at 06/01/248 simethicone (Mylicon) chewable tablet 120 mg, 120 mg, Oral, q6h PRN, Sidney Jackson MD, 120 mg at 05/31/242022 sodium chloride ([place]) 0.65 % nasal spray 1 spray, 1 [...] Value Units Date/Time Blood Culture (Aerobic/Anaerobet Set) [[id number]] Collected: 05/23/24 1020 Order Status: Completed Specimen: Blood, Venous Updated: 05/24/24 1101 Culture No growth at day 1 Fungal Blood Culture [[id number]] Collected: 05/17/241812 Order Status: Completed Specimen: Blood, Venous Updated: 05/24/24 0638 Culture No Fungal Growth at 1 Week AFB Blood Culture [[id number]] Collected: 05/17/241812 Order Status: Completed Specimen: Blood, Venous Updated: 05/24/24 0638 AFB Culture No Mycobacterial Growth at 1 Week Vitals: Visit Vitals BP 119/75 (BP Location: Right arm, Patient Position: Lying) Pulse 94 Temp 36.7 ??C (98 ??F) (Oral) Resp 24 [place] Coma Scale Score: 15 Shaan Scale Score: 16 Oxygen Therapy: None (Room air) Skin Integrity: Bruising (wound vac to sternotomy, LENA drain x2, Colostomy) Edema: Generalized Wt Readings from Last 3 Encounters: 06/01/24 54.8 kg (120 lb 13 oz) 05/14/24 59 kg (130 lb) 04/26/23 62.6 kg [...] Weight: 61.1 kg (134 lb 12.8 oz) [place] body weight: 47.8 kg (105 lb 4.8 oz) Adjusted ideal body weight: 52.8 kg (116 lb 5.7 oz) (126.25%) of IBW Body mass index is 25.13 kg/m??. Adjusted wt: 50.9 kg (if over 125% of IBW) CENTRAL IV Access: PICC (05/18/24) Estimated Nutritional Needs: HBE: 1153 Stress Factor: 1.2-1.4 Total Calories/day: 3998-9671 Protein (amino acids): 1.3-1.6 grams/kg Protein (Amino [...] and depression COPD (chronic obstructive pulmonary disease) ([facility]) CAD, multiple vessel NSTEMI (non-ST elevated myocardial infarction) ([facility]) GERD (gastroesophageal reflux disease) Leukocytosis Hyperlipidemia THOM (obstructive sleep apnea) S/P CABG x 4 Hypertension Cardiac volume overload Hypoglycemia Nausea with vomiting Acute blood loss anemia (ABLA) Gastric perforation ([facility]) On total parenteral nutrition (TPN) Ileus ([facility]) Electrolyte abnormality Colon perforation ([facility]) Post-op pain Delirium [2] Past Medical History: Diagnosis Date Anxiety COPD (chronic obstructive pulmonary disease) ([facility]) 05/01/2024 Continue Duo nebs q6 SPO2 goal >88% Depression GERD (gastroesophageal reflux disease) 05/01/2024 Continue Protonix 40 mg daily Hyperkalemia 05/06/2024 Now resolved, pt with hypokalemia requiring replacement On mechanically assisted ventilation ([facility]) 05/06/2024 Arrived to ICU intubated 05/07 extubated to [facility] 05/08 resolved Tobacco use 05/01/2024 Drug Safety Associate for smoking 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 Complicates all [...] Flowsheets (Taken 05/31/2024 0000 by Donald Acharya, KRISTINA) Progress: improving Plan of Care Reviewed With: [...] Comfort Flowsheets (Taken 05/29/20242020 by Marcie Fisher, RN) Pain Management Interventions: medication (see MAR) [...] Lenard Hallman MD SGE PGY-1 * Can Alex - Leola Montano RN - 06/01/2024 12:57 [...] does not seem to beworking properly. 1. Administrative Services Assistant the tube near the skin and hold [...] from the original note were not included. 04463 Preventing a Surgical Site Infection A risk [...] of infection. ?? Controlled body temperature. A cznxt-ueog-jgktiv temperature during or after surgery prevents oxygen [...] and water or with an alcohol-based hand electric freight car operator before and after caring for you. Don?t [...] away. Last Reviewed Date: 2024 00:00:00 ?? 2445-2476 [employer]. All rights reserved. This information is not intended as a substitute for professional medical care. Always follow your healthcare professional's instructions. * Can [facility] - Leola Montano RN - 06/01/2024 12:56 PM EDT Images from the original note were not included. 72637 Incision Care Reminder Keep all your follow-up [...] opens ?? Stitches that pull apart ?? Lyle that fall out ?? Surgical tape that falls off before 7 days Last Reviewed Date: 2023 00:00:00 ?? 0951-9680 [employer]. All rights reserved. This information is not [...] weekends. Last Reviewed Date: 2023 00:00:00 ?? 7366-0477 [employer]. All rights reserved. This information is not intended as a substitute for professional medical care. Always follow your healthcare professional's instructions. * Can On[facility] - Leola Montano RN - 06/01/2024 12:56 PM EDT Images from the original note were not included. 09827 What You Should Know About Colectomy Being [...] medicines you take. That includes prescription and inod-hcz-dbujlhp medicines, vitamins, herbs, supplements, marijuana, and street [...] pocket Last Reviewed Date: 2023 00:00:00 ?? 7145-0095 [employer]. All rights reserved. This information is not intended as a substitute for professional medical care. Always follow your healthcare professional's instructions. * Can [facility] - Leola Montano RN - 06/01/2024 12:56 PM EDT Images from the original note were not included. 03132 Exploratory Laparotomy Exploratory laparotomy is surgery to [...] about any medicines you?re taking. This includes yzdw-bdy-fyeyivbkapnkiqas, prescription medicines, herbs, illegal drugs, vitamins, and [...] anesthesia. Last Reviewed Date: 2024 00:00:00 ?? 3670-4418 [employer]. All rights reserved. This information is not intended as a substitute for professional medical care. Always follow your healthcare professional's instructions. * Can [facility] - Leola Montano RN - 06/01/2024 12:52 PM EDT Images from the original note were not included. [id number] Open Bowel Resection: What to Expect at [...] litter or dog food bags, a vacuum quill cleaner, or a child. ?? Ask your doctor [...] your doctor if you can take an ahhv-fgb-xutsfdo medicine. o Do not take two or [...] this instruction, always ask your healthcare professional. [employer] disclaims any warranty or liability for your use of this information. ?? [id number] [employer], [employer]. * Can OnIR - Leola Montano RN - 06/01/2024 12:52 PM EDT Images from the original note were not included. 21501 Colorectal Surgery: Recovering in the Hospital and [...] site. Last Reviewed Date: 2024 00:00:00 ?? 7573-1762 [employer]. All rights reserved. This information is not intended as a substitute for professional medical care. Always follow your healthcare professional's instructions. * Can Alex - Leola Montano RN - 06/01/2024 12:52 PM EDT Images from the original note were not included. 87491 Understanding Intestinal Obstruction The small and large [...] symptoms Last Reviewed Date: 2021 00:00:00 ?? 6735-3968 [employer]. All rights reserved. This information is not [...] Comfort Flowsheets (Taken 05/29/20242020 by Marcie Fisher, RN) Pain Management Interventions: medication (see MAR) [...] Ongoing, Progressing * Progress Notes - Shola Sheridan APRN - 06/01/2024 9:58 AM EDT CVT Progress [...] 0.16 C reveal mvCAD - S/p CABG x4 with [...] Blue surgery giving increasing WBC Cardiothoracic Surgery [phone] * Progress Notes - Rebel Ayala MD [...] 0535 05/28/24 0047 05/27/24 0454 05/26/24 0327 GLUCOSE mg/dL 495* 107* 112* 104* 600* 106* 127* 122* BUN mg/dL 12 13 14 13 12 17 CREATININE mg/dL 0.54* 0.52* 0.52* 0.58* 0.59* [...] Value Units Date/Time Blood Culture (Aerobic/Anaerobet Set) [[id number]] Collected: 05/23/24 1020 Order Status: Completed Specimen: Blood, Venous Updated: 05/24/24 1101 Culture No growth at day 1 Fungal Blood Culture [[id number]] Collected: 05/17/241812 Order Status: Completed Specimen: Blood, Venous Updated: 05/24/24 0638 Culture No Fungal Growth at 1 Week AFB Blood Culture [[id number]] Collected: 05/17/241812 Order Status: Completed Specimen: Blood, Venous Updated: 05/24/24 0638 AFB Culture No Mycobacterial Growth at 1 Week Vitals: Visit Vitals BP 133/85 Pulse 94 Temp 36.6 ??C (97.8 ??F) (Oral) Resp 19 [place] Coma Scale Score: 15 Shaan Scale Score: 18 Oxygen Therapy: None (Room air) Skin Integrity: Bruising (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 Adjusted wt: 50.9 kg (if over 125% of IBW) CENTRAL IV Access: PICC (05/18/24) Estimated Nutritional Needs: HBE: 1153 Stress Factor: 1.2-1.4 Total Calories/day: 0874-2060 Protein (amino acids): 1.3-1.6 grams/kg Protein (Amino [...] and depression COPD (chronic obstructive pulmonary disease) ([facility]) CAD, multiple vessel NSTEMI (non-ST elevated myocardial infarction) ([facility]) GERD (gastroesophageal reflux disease) Leukocytosis Hyperlipidemia THOM (obstructive sleep apnea) S/P CABG x 4 Hypertension Cardiac volume overload Hypoglycemia Nausea with vomiting Acute blood loss anemia (ABLA) Gastric perforation (CMS/HCC) On total parenteral nutrition (TPN) Ileus ([facility]CC) Electrolyte abnormality Colon perforation ([facility]) Post-op pain Delirium [2] Past Medical History: Diagnosis Date Anxiety COPD (chronic obstructive pulmonary disease) (CMS/HCC) 05/01/2024 Continue Duo nebs q6 SPO2 goal >88% Depression GERD (gastroesophageal reflux disease) 05/01/2024 Continue Protonix 40 mg daily Hyperkalemia 05/06/2024 Now resolved, pt with hypokalemia requiring replacement On mechanically assisted ventilation (CMS/HCC) 05/06/2024 Arrived to ICU intubated 05/07 extubated to [facility] 05/08 resolved Tobacco use 05/01/2024 Drug Safety Associate for smoking 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 Complicates all [...] 1:14 PM EDT Associated attestation - Uriah Sherman PharmD - 06/01/2024 1:14 PM EDT I have assessed the patient with the manager pharmacy and agree with the plan as ordered and documented. Micheal Sherman, Delphine Trauma/Emergency General Surgery * Consults - Gretchen Brothers, RD - 05/31/2024 3:38 PM EDT Adult Nutrition Evaluation Note Rere Hunter 53 y.o. female CSN: [id number] Room/Bed 117/117A Nutrition evaluation type: follow-up Reason [...] (Room air) O2 Delivery Method: Nasal cannula [place] Coma Scale Score: 15 Shaan Scale Score: [...] (Calculated): 23.09 Weight Evaluation: Overweight (BMI 25-29.9) [place] Body Weight (kg): 47.7 Percent [place] Body Weight: 116 Adjusted Body Weight (kg): 50.9 Wt Readings from Last 10 Encounters: 05/31/24 55.4 kg (122 lb 2.2 oz) 06/28/23 59 kg (130 lb) 04/26/23 62.6 kg (138 lb) 01/18/23 61.7 kg (136 lb) Estimated Needs: Kcal/ K-35 Kcal Provided: 9532-3129 Kcal Needs Based On: Adjusted weight Gm Protein/ Kg : 1.5 Protein Provided: 76 Protein Needs Based On: Adjusted weight Metabolic Cart Study Results: Current Nutrition Intake: Diet Order: Adult Diet Diet Texture: Regular Adult Carbohydrate Restriction: Consistent CHO 2 (0162-5947 [place], 80 g/meal) Fat Restriction: Cardiac Other [...] Provided: Will monitor Pertinent home medications: reviewed [place] needs: Nutrition Focused Physical Exam: Physical exam [...] Date Anxiety COPD (chronic obstructive pulmonary disease) ([facility]) 05/01/2024 Continue Duo nebs q6 SPO2 goal >88% Depression GERD (gastroesophageal reflux disease) 05/01/2024 Continue Protonix 40 mg daily Hyperkalemia 05/06/2024 Now resolved, pt with hypokalemia requiring replacement On mechanically assisted ventilation ([facility]) 05/06/2024 Arrived to ICU intubated 05/07 [facility] 05/08 resolved Tobacco use 05/01/2024 Drug Safety Associate for smoking 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 Complicates all [...] SURGERY * Progress Notes - Lorna Bejarano - 05/31/2024 12:28 PM EDT Physical Therapy Treatment Patient Name: Rere Hunter Today's Date: 05/31/2024 PT Discharge Recommendations: LTACH Equipment Recommended: Defer to facility Subjective RN and patient agreed to physical therapy services this date. She reported I'm okay... I slept last night. Participants in Care Family/Caregiver Present: No Water Purifier: Not Applicable Presentation Oxygen Therapy: None (Room [...] Mobility Bed Mobility Exam: Scooting/Bridging Level of [place]: Maximum assist (25% patient's effort) (Seated scooting hips towards EOB withuse of draw sheet.) Physical/Nonphysical Assist: Verbal Cues, Nonverbal cues (demo/gestures) Bed Mobility Exam: Supine to Sit Level of [place]: Moderate assist (50% patient's effort) (For trunk [...] Transfer Exam: Sit to stand Level of [place]: Contact guard Physical/Nonphysical Assist: Verbal Cues, Nonverbal cues (demo/gestures), Set-up required, 1 person+ 1 person to manage equipment Assistive Device: Rollator Transfer Exam: Stand to Sit Level of [place]: Contact guard Physical/Nonphysical Assist: Verbal Cues, Nonverbal cues (demo/gestures), 1 person + 1 person to manage equipment, Set-up required Toilet Transfer Level of [place]: Minimum assist (75% patient's effort) Physical/Nonphysical Assist: [...] Care Family/Caregiver Present: No Family/Caregiver: Adult Son Water Purifier: Not Applicable Presentation Oxygen Therapy: None (Room [...] Mobility Bed Mobility Exam: Scooting/Bridging Level of [place]: Maximum assist (25% patient's effort) (Seated scooting hips towards EOB withuse of draw sheet.) Physical/Nonphysical Assist: Verbal Cues, Nonverbal cues (demo/gestures) Assistive Device: Other (draw sheet) Bed Mobility Exam: Supine to Sit Level of [place]: Moderate assist (50% patient's effort) (For trunk upright.) Physical/Nonphysical Assist: Verbal Cues, Nonverbal cues (demo/gestures), Additional assist utilized for safety Assistive Device: Other (draw sheet) Transfers Transfer Exam: Sit to stand Level of [place]: Contact guard Physical/Nonphysical Assist: Verbal Cues, Nonverbal cues (demo/gestures), Set-up required, 1 person+ 1 person to manage equipment Assistive Device: Rollator Transfer Exam: Stand to Sit Level of [place]: Contact guard Physical/Nonphysical Assist: Verbal Cues, Nonverbal cues (demo/gestures), 1 person + 1 person to manage equipment, Set-up required Assistive Device: Hand held assist Toilet Transfer Level of [place]: Minimum assist (75% patient's effort) Physical/Nonphysical Assist: [...] RD note 05/29 Kcal/ K-35 Kcal Provided: 7331-7413 Kcal Needs Based On: Adjusted weight Gm [...] 95* 102 99 104 107 CO2 mmol/L CALCIUM mg/dL 8.3* 8.0* 8.3* 8.1* 8.2* [...] Value Units Date/Time Blood Culture (Aerobic/Anaerobet Set) [[id number]] Collected: 05/23/24 1020 Order Status: Completed Specimen: Blood, Venous Updated: 05/24/24 1101 Culture No growth at day 1 Fungal Blood Culture [[id number]] Collected: 05/17/241812 Order Status: Completed Specimen: Blood, Venous Updated: 05/24/24 0638 Culture No Fungal Growth at 1 Week AFB Blood Culture [[id number]] Collected: 05/17/241812 Order Status: Completed Specimen: Blood, Venous Updated: 05/24/24637 AFB Culture No Mycobacterial Growth at 1 Week Vitals: Visit Vitals BP (!) 140/83 (BP Location: Right arm, Patient Position: Lying) Pulse 94 Temp 37 ??C (98.6 ??F) (Oral) Resp 21 [place] Coma Scale Score: 15 Shaan Scale Score: [...] Weight: 61.1 kg (134 lb 12.8 oz) [place] body weight: 47.8 kg (105 lb 4.8 oz) Adjusted ideal body weight: 52.8 kg (116 lb 5.7 oz) (126.25%) of IBW Body mass index is 25.13 kg/m??. Adjusted wt: 50.9 kg (if over 125% of IBW) CENTRAL IV Access: PICC (05/18/24) Estimated Nutritional Needs: HBE: 1153 Stress Factor: 1.2-1.4 Total Calories/day: 0025-4333 Protein (amino acids): 1.3-1.6 grams/kg Protein (Amino [...] and depression COPD (chronic obstructive pulmonary disease) ([facility]) CAD, multiple vessel NSTEMI (non-ST elevated myocardial infarction) ([facility]) GERD (gastroesophageal reflux disease) Leukocytosis Hyperlipidemia THOM (obstructive sleep apnea) S/P CABG x 4 Hypertension Cardiac volume overload Hypoglycemia Nausea with vomiting Acute blood loss anemia (ABLA) Gastric perforation ([facility]) On total parenteral nutrition (TPN) Ileus ([facility]) Electrolyte abnormality Colon perforation ([facility]) Post-op pain Delirium [2] Past Medical History: Diagnosis Date Anxiety COPD (chronic obstructive pulmonary disease) ([facility]) 05/01/2024 Continue Duo nebs q6 SPO2 goal >88% Depression GERD (gastroesophageal reflux disease) 05/01/2024 Continue Protonix 40 mg daily Hyperkalemia 05/06/2024 Now resolved, pt with hypokalemia requiring replacement On mechanically assisted ventilation ([facility]) 05/06/2024 Arrived to ICU intubated 05/07 extubated to [facility] 05/08 resolved Tobacco use 05/01/2024 Drug Safety Associate for smoking 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 Complicates all [...] Note Rere Hunter 53 y.o. female CSN: [id number] Admission: 05/01/2024 11:01 PM Primary Problem: CAD, [...] to expense. SW previously referred pt to [facility] and updated liaison Prema this AM re: pt's progress. Prema continuing to follow. No further SW concerns identified at this time. SW will monitor pt's progress and will follow up with DC planning and needs as appropriate. NAYA Albarran * Progress Notes - Shola Sheridan, ACCOUNTS RECEIVABLE SPECIALIST - 05/31/2024 8:05 AM EDT CVT Progress [...] Drain care per blue surgery Cardiothoracic Surgery [id number] * Procedures - Iman Massey MD - [...] 1859 05/28/24 190 - 05/29/24 0659 05/29/24 07 - 05/29/24 1859 05/29/24 190 - 05/30/24 [...] mg q6 COPD (chronic obstructive pulmonary disease) ([facility]) Yes Overview Addendum 05/23/2024 8:43 AM by Marybel Suarez APRN Duo nebs q6 Wean O2 for SPO2 goal >88% NSTEMI (non-ST elevated myocardial infarction) (CMS/HCC) Yes Overview Addendum 05/22/2024 11:00 AM by Jose Aburto MD Diagnosed at OSH with elevated troponins of 0.05 to 0.23 to 0.16 Started on heparin drip GLUER AND SLICER HAND, 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 Repeat troponins pending 05/07 [...] Addendum 05/23/2024 8:50 AM by Marybel Suarez, ACCOUNTS RECEIVABLE SPECIALIST Remains febrile with elevated EBC Cultures ordered and pending Hyperlipidemia Yes Overview Signed 05/23/2024 8:47 AM by Marybel Suarez, ACCOUNTS RECEIVABLE SPECIALIST Restart statin when no longer NPO THOM (obstructive sleep apnea) Yes Overview Addendum 05/23/2024 8:45 AM by Marybel Suarez, ACCOUNTS RECEIVABLE SPECIALIST Refusing home CPAP remains on NC S/P CABG x 4 Not Applicable Overview Addendum 05/23/2024 8:45 AM by Marybel Suarez, ACCOUNTS RECEIVABLE SPECIALIST 05/06 4vCBUNNY w/ Dr. Austin Aspirin, statin, beta stacey as clinically appropriate Hypertension Yes Overview Addendum 05/23/2024 8:47 AM by Marybel Suarez, ACCOUNTS RECEIVABLE SPECIALIST Metop IV while NPO Restart PO metop when appropriate Cardiac volume overload No Overview Addendum 05/18/2024 10:24 AM by Sidney Jackson MD Diuresis as clinically indicated Hypoglycemia No Overview Addendum 05/23/2024 8:46 AM by Marybel Suarez, ACCOUNTS RECEIVABLE SPECIALIST Resolved once TPN started Nausea with vomiting No Overview Addendum 05/28/2024 8:26 AM by Sidney Jackson MD TPN running Advance PO diet as able Acute blood loss anemia (ABLA) No Overview Addendum 05/23/2024 8:43 AM by Marybel Suarez, ACCOUNTS RECEIVABLE SPECIALIST Lab Results Component Value Date HGB 9.0 [...] Signed 05/23/2024 8:50 AM by Marybel Suarez, ACCOUNTS RECEIVABLE SPECIALIST - monitor and replace prn Post-op pain [...] Value Units Date/Time Blood Culture (Aerobic/Anaerobet Set) [[id number]] Collected: 05/23/24 1020 Order Status: Completed Specimen: Blood, Venous Updated: 05/24/24 1101 Culture No growth at day 1 Fungal Blood Culture [[id number]] Collected: 05/17/241812 Order Status: Completed Specimen: Blood, Venous Updated: 05/24/24 0638 Culture No Fungal Growth at 1 Week AFB Blood Culture [[id number]] Collected: 05/17/241812 Order Status: Completed Specimen: Blood, Venous Updated: 05/24/24 0638 AFB Culture No Mycobacterial Growth at 1 Week Vitals: Visit Vitals BP 129/84 (BP Location: Right arm, Patient Position: Lying) Pulse 90 Temp 36.6 ??C (97.9 ??F) (Oral) Resp 20 Ja[place] Coma Scale Score: 15 [...] Weight: 61.1 kg (134 lb 12.8 oz) [place] body weight: 47.8 kg (105 lb 4.8 oz) Adjusted ideal body weight: 52.8 kg (116 lb 5.7 oz) (126.25%) of IBW Body mass index is 25.13 kg/m??. Adjusted wt: 50.9 kg (if over 125% of IBW) CENTRAL IV Access: PICC (05/18/24) Estimated Nutritional Needs: HBE: 1153 Stress Factor: 1.2-1.4 Total Calories/day: 7482-3012 Protein (amino acids): 1.3-1.6 grams/kg Protein (Amino [...] Date Anxiety COPD (chronic obstructive pulmonary disease) ([facility]/HCC) 05/01/2024 Continue Duo nebs q6 SPO2 goal >88% Depression GERD (gastroesophageal reflux disease) 05/01/2024 Continue Protonix 40 mg daily Hyperkalemia 05/06/2024 Now resolved, pt with hypokalemia requiring replacement On mechanically assisted ventilation ([facility]) 05/06/2024 Arrived to ICU intubated 05/07 extubated to 4C 05/08 resolved Tobacco use 05/01/2024 Drug Safety Associate for smoking 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 Complicates all [...] hallway as able * Care Plan - aMrcie Fisher RN - 05/29/2024 10:22 PM EDT [...] - 05/29/2024 2:59 PM EDT Procedures 05/29/24 eRre Hunter HPI Rere Hunter is a 53 [...] Abdomen Lower;Upper;Mid 05/23/24 1757 Abdomen 5 GCS: Jaida Coma Scale Score: 15 [...] mg q6 COPD (chronic obstructive pulmonary disease) ([facility]) Yes Overview Addendum 05/23/2024 8:43 AM by Marybel Suarez APRN Duo nebs q6 Wean O2 for SPO2 goal >88% NSTEMI (non-ST elevated myocardial infarction) ([facility]) Yes Overview Addendum 05/22/2024 11:00 AM by Jose Aburto MD Diagnosed at OSH with elevated troponins of 0.05 to 0.23 to 0.16 Started on heparin drip GLUER AND SLICER HAND, 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 Repeat troponins pending 05/07 [...] Addendum 05/23/2024 8:50 AM by Marybel Suarez, ACCOUNTS RECEIVABLE SPECIALIST Remains febrile with elevated EBC Cultures ordered and pending Hyperlipidemia Yes Overview Signed 05/23/2024 8:47 AM by Marybel Suarez, ACCOUNTS RECEIVABLE SPECIALIST Restart statin when no longer NPO THOM (obstructive sleep apnea) Yes Overview Addendum 05/23/2024 8:45 AM by Marybel Suarez, ACCOUNTS RECEIVABLE SPECIALIST Refusing home CPAP remains on NC S/P CABG x 4 Not Applicable Overview Addendum 05/23/2024 8:45 AM by Marybel Suarez, ACCOUNTS RECEIVABLE SPECIALIST 05/06 4vCABG w/ Dr. Austin Aspirin, statin, beta stacey as clinically appropriate Hypertension Yes Overview Addendum 05/23/2024 8:47 AM by Marybel Suarez, ACCOUNTS RECEIVABLE SPECIALIST Metop IV while NPO Restart PO metop when appropriate Cardiac volume overload No Overview Addendum 05/18/2024 10:24 AM by Sidney Jackson MD Diuresis as clinically indicated Hypoglycemia No Overview Addendum 05/23/2024 8:46 AM by Marybel Suarez, ACCOUNTS RECEIVABLE SPECIALIST Resolved once TPN started Nausea with vomiting No Overview Addendum 05/28/2024 8:26 AM by Sidney Jackson MD TPN running Advance PO diet as able Acute blood loss anemia (ABLA) No Overview Addendum 05/23/2024 8:43 AM by Marybel Suarez, ACCOUNTS RECEIVABLE SPECIALIST Lab Results Component Value Date HGB 9.0 [...] Signed 05/23/2024 8:50 AM by Marybel Suarez ACCOUNTS RECEIVABLE SPECIALIST - monitor and replace prn Post-op pain [...] Note Rere Hunter 53 y.o. female CSN: [id number] Room/Bed 216/216A Nutrition evaluation type: follow-up Reason [...] (Room air) O2 Delivery Method: Nasal cannula Jaida Coma [...] (Calculated): 25.92 Weight Evaluation: Overweight (BMI 25-29.9) [place] Body Weight (kg): 47.7 Percent [place] Body Weight: 126 Adjusted Body Weight (kg): 50.9 Estimated Needs: Kcal/ K-35 Kcal Provided: 5086-8016 Kcal Needs Based On: Adjusted weight Gm Protein/ Kg : 1.5 Protein Provided: 76 Protein Needs Based On: Adjusted weight Metabolic Cart Study Results: Current Nutrition Intake: Diet Order: Adult Diet Diet Texture: Regular Adult Carbohydrate Restriction: Consistent CHO 2 (6314-8983 [place], 80 g/meal) Fat Restriction: Cardiac Percent Meals Eaten (%): Calorie count in progress HALF-RATE TPN: DEXTROSE: 15% (144 g/day CHO) AMINO ACIDS: 5% (48 g/day) Cl:A 1:3, K @ 30 mEq/L @ 40 ml/hr, with 30mg/day thiamine, MVI, and Trace elements Every other day 250ml 20% SMOF lipids Diet Experience and Nutrition History: Diet Education Provided: Will monitor Pertinent home medications: reviewed [place] needs: Nutrition Focused Physical Exam: Physical exam [...] Date Anxiety COPD (chronic obstructive pulmonary disease) ([facility]) 05/01/2024 Continue Duo nebs q6 SPO2 goal >88% Depression GERD (gastroesophageal reflux disease) 05/01/2024 Continue Protonix 40 mg daily Hyperkalemia 05/06/2024 Now resolved, pt with hypokalemia requiring replacement On mechanically assisted ventilation ([facility]) 05/06/2024 Arrived to ICU intubated 05/07 extubated to 4C 05/08 resolved Tobacco use 05/01/2024 Drug Safety Associate for smoking 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 Complicates all [...] Mobility Bed Mobility Exam: Scooting/Bridging Level of [place]: Maximum assist (25% patient's effort) Physical/Nonphysical Assist: Verbal Cues, Set-up required, Additional assist utilized for safety Assistive Device: Other (draw sheet to scoot to EOB) Bed Mobility Exam: Supine to Sit Level of [place]: Maximum assist (25% patient's effort) Physical/Nonphysical Assist: Verbal Cues, Set-up required, Additional assist utilized for safety Transfers Transfer Exam: Sit to stand Level of [place]: Minimum assist (75% patient's effort) Physical/Nonphysical Assist: Verbal Cues, Set-up required, 1 person + 1 person to manage equipment Assistive Device: Hand held assist Transfer Exam: Stand to Sit Level of [place]: Minimum assist (75% patient's effort) Physical/Nonphysical Assist: [...] as patient expressed desire to go to [facility]. Assessment Patient with no significant change [...] 2:06 PM. * Progress Notes - Nancy Sabillonlois Negrete - 05/29/2024 1:31 PM EDT Occupational [...] Mobility Bed Mobility Exam: Scooting/Bridging Level of [place]: Maximum assist (25% patient's effort) Physical/Nonphysical Assist: Verbal Cues, Set-up required, Additional assist utilized for safety Assistive Device: Other (draw sheet) Bed Mobility Exam: Supine to Sit Level of [place]: Maximum assist (25% patient's effort) Physical/Nonphysical Assist: Verbal Cues, Set-up required, Additional assist utilized for safety Assistive Device: Other (draw sheet) Transfers Transfer Exam: Sit to stand Level of [place]: Minimum assist (75% patient's effort) Physical/Nonphysical Assist: Verbal Cues, Set-up required, 1 person + 1 person to manage equipment Assistive Device: Hand held assist Transfer Exam: Stand to Sit Level of [place]: Minimum assist (75% patient's effort) Physical/Nonphysical Assist: [...] Value Units Date/Time Blood Culture (Aerobic/Anaerobet Set) [[id number]] Collected: 05/23/24 1020 Order Status: Completed Specimen: Blood, Venous Updated: 05/24/24 1101 Culture No growth at day 1 Fungal Blood Culture [[id number]] Collected: 05/17/24 1813 Order Status: Completed Specimen: Blood, Venous Updated: 05/24/24 0638 Culture No Fungal Growth at 1 Week AFB Blood Culture [[id number]] Collected: 05/17/24 1813 Order Status: Completed Specimen: Blood, Venous Updated: 05/24/24637 AFB Culture No Mycobacterial Growth at 1 Week Vitals: Visit Vitals BP 128/77 Pulse 88 Temp 37.4 ??C (99.3 ??F) Resp 20 [place] Coma Scale Score: 15 [place] Scale Score: [...] Weight: 61.1 kg (134 lb 12.8 oz) [place] body weight: 47.8 kg (105 lb 4.8 oz) Adjusted ideal body weight: 52.8 kg (116 lb 5.7 oz) (126.25%) of IBW Body mass index is 25.13 kg/m??. Adjusted wt: 50.9 kg (if over 125% of IBW) CENTRAL IV Access: PICC (05/18/24) Estimated Nutritional Needs: HBE: 1153 Stress Factor: 1.2-1.4 Total Calories/day: 9709-7860 Protein (amino acids): 1.3-1.6 grams/kg Protein (Amino [...] and depression COPD (chronic obstructive pulmonary disease) ([facility]) CAD, multiple vessel NSTEMI (non-ST elevated myocardial infarction) ([facility]) GERD (gastroesophageal reflux disease) Leukocytosis Hyperlipidemia THOM (obstructive sleep apnea) S/P CABG x 4 Hypertension Cardiac volume overload Hypoglycemia Nausea with vomiting Acute blood loss anemia (ABLA) Gastric perforation (CMS/HCC) On total parenteral nutrition (TPN) Ileus ([facility]/HCC) Electrolyte abnormality Colon perforation (CMS/HCC) Post-op pain [...] to 4LNC 05/08 resolved Tobacco use 05/01/2024 Drug Safety Associate for smoking 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 Complicates all [...] the procedure(s). * Progress Notes - Gregg Burdick MD - 05/28/2024 11:39 AM EDTAssociated Order(s): [...] as documented. 05/28/24 Rere Hunter HPI Rere Hnuter is a 53 y.o. female who presents [...] Addendum 05/23/2024 8:44 AM by Marybel Suarez, ACCOUNTS RECEIVABLE SPECIALIST Patient presented to OSH on 05/01/24 c/o chest pain, LHC reveal mvCAD S/p CABG with Dr. Austin on 05/07 Anxiety and depression Yes Overview Addendum 05/23/2024 8:43 AM by Marybel Suarez, ACCOUNTS RECEIVABLE SPECIALIST Continue home bupropion XL 300 mg daily Continue home citalopram 40 mg daily Continue PRN hydroxyzine 25 mg q6 COPD (chronic obstructive pulmonary disease) (CMS/HCC) Yes Overview Addendum 05/23/2024 8:43 AM by Marybel Suarez, ARASH Duo nebs q6 Wean O2 for SPO2 goal >88% NSTEMI (non-ST elevated myocardial infarction) ([facility]) Yes Overview Addendum 05/22/2024 11:00 AM by Jose Aburto MD Diagnosed at OSH with elevated troponins of 0.05 to 0.23 to 0.16 Started on heparin drip GLUER AND SLICER HAND, 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 Repeat troponins pending 05/07 [...] Signed 05/23/2024 8:47 AM by Marybel Suarez, ACCOUNTS RECEIVABLE SPECIALIST Restart statin when no longer NPO THOM (obstructive sleep apnea) Yes Overview Addendum 05/23/2024 8:45 AM by Marybel Suarez, ACCOUNTS RECEIVABLE SPECIALIST Refusing home CPAP remains on NC S/P CABG x 4 Not Applicable Overview Addendum 05/23/2024 8:45 AM by Marybel Suarez, ACCOUNTS RECEIVABLE SPECIALIST 05/06 4vCABG w/ Dr. Austin Aspirin, statin, beta stacey as clinically appropriate Hypertension Yes Overview Addendum 05/23/2024 8:47 AM by Marybel Suarez, ACCOUNTS RECEIVABLE SPECIALIST Metop IV while NPO Restart PO metop [...] Addendum 05/23/2024 8:43 AM by Marybel Suarez, ACCOUNTS RECEIVABLE SPECIALIST Lab Results Component Value Date HGB 9.0 [...] Nasal cannula Output by Drain (mL) 05/26/24 07 - 05/26/24 1859 05/26/24 190 - 05/27/24 [...] mg q6 COPD (chronic obstructive pulmonary disease) ([facility]) Yes Overview Addendum 05/23/2024 8:43 AM by Marybel Suarez APRN Duo nebs q6 Wean O2 for SPO2 goal >88% NSTEMI (non-ST elevated myocardial infarction) (CMS/HCC) Yes Overview Addendum 05/22/2024 11:00 AM by Jose Aburto MD Diagnosed at OSH with elevated troponins of 0.05 to 0.23 to 0.16 Started on heparin drip GLUER AND SLICER HAND, 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 Repeat troponins pending 05/07 [...] Signed 05/23/2024 8:47 AM by Marybel Suarez, ACCOUNTS RECEIVABLE SPECIALIST Restart statin when no longer NPO THOM (obstructive sleep apnea) Yes Overview Addendum 05/23/2024 8:45 AM by Marybel Suarez, ARASH Refusing home CPAP remains on NC S/P CABG x 4 Not Applicable Overview Addendum 05/23/2024 8:45 AM by Marybel Suarez APRN 05/06 4vCABG w/ Dr. Austin Aspirin, statin, beta stacey as clinically appropriate Hypertension Yes Overview Addendum 05/23/2024 8:47 AM by Marybel Suarez, ACCOUNTS RECEIVABLE SPECIALIST Metop IV while NPO Restart PO metop when appropriate Cardiac volume overload No Overview Addendum 05/18/2024 10:24 AM by Sidney Jackson MD Diuresis as clinically indicated Hypoglycemia No Overview Addendum 05/23/2024 8:46 AM by Marybel Suarez, ACCOUNTS RECEIVABLE SPECIALIST Resolved once TPN started Nausea with vomiting No Overview Addendum 05/28/2024 8:26 AM by Sidney Jackson MD TPN running Advance PO diet as able Acute blood loss anemia (ABLA) No Overview Addendum 05/23/2024 8:43 AM by Marybel Suarez, ACCOUNTS RECEIVABLE SPECIALIST Lab Results Component Value Date HGB 9.0 [...] Note Rere Hunter 53 y.o. female CSN: [id number] Admission: 05/01/2024 11:01 PM Primary Problem: CAD, [...] Value Units Date/Time Blood Culture (Aerobic/Anaerobet Set) [[id number]] Collected: 05/23/24 1020 Order Status: Completed Specimen: Blood, Venous Updated: 05/24/24 1101 Culture No growth at day 1 Fungal Blood Culture [[id number]] Collected: 05/17/241812 Order Status: Completed Specimen: Blood, Venous Updated: 05/24/24 0638 Culture No Fungal Growth at 1 Week AFB Blood Culture [[id number]] Collected: 05/17/241812 Order Status: Completed Specimen: Blood, Venous Updated: 05/24/24 0638 AFB Culture No Mycobacterial Growth at 1 Week Vitals: Visit Vitals BP 138/81 Pulse 90 Temp 36.8 ??C (98.2 ??F) Resp 20 [place] Coma Scale Score: 15 [place] Scale Score: [...] Weight: 61.1 kg (134 lb 12.8 oz) [place] body weight: 47.8 kg (105 lb 4.8 oz) Adjusted ideal body weight: 52.8 kg (116 lb 5.7 oz) (126.25%) of IBW Body mass index is 25.13 kg/m??. Adjusted wt: 50.9 kg (if over 125% of IBW) CENTRAL IV Access: PICC (05/18/24) Estimated Nutritional Needs: HBE: 1153 Stress Factor: 1.2-1.4 Total Calories/day: 5433-8206 Protein (amino acids): 1.3-1.6 grams/kg Protein (Amino [...] multiple vessel NSTEMI (non-ST elevated myocardial infarction) ([facility]) GERD (gastroesophageal reflux disease) Leukocytosis Hyperlipidemia THOM (obstructive sleep apnea) S/P CABG x 4 Hypertension Cardiac volume overload Hypoglycemia Nausea with vomiting Acute blood loss anemia (ABLA) Gastric perforation (CMS/HCC) On total parenteral nutrition (TPN) Ileus ([facility]) Electrolyte abnormality Colon perforation ([facility]) Post-op pain [2] Past Medical History: Diagnosis Date Anxiety COPD (chronic obstructive pulmonary disease) (CMS/HCC) 05/01/2024 Continue Duo nebs q6 SPO2 goal >88% Depression GERD (gastroesophageal reflux disease) 05/01/2024 Continue Protonix 40 mg daily Hyperkalemia 05/06/2024 Now resolved, pt with hypokalemia requiring replacement On mechanically assisted ventilation (CMS/HCC) 05/06/2024 Arrived to ICU intubated 05/07 extubated to 4LNC 05/08 resolved Tobacco use 05/01/2024 Drug Safety Associate for smoking 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 Complicates all [...] Value Units Date/Time Blood Culture (Aerobic/Anaerobet Set) [[id number]] Collected: 05/23/24 1020 Order Status: Completed Specimen: Blood, Venous Updated: 05/24/24 1101 Culture No growth at day 1 Fungal Blood Culture [[id number]] Collected: 05/17/241812 Order Status: Completed Specimen: Blood, Venous Updated: 05/24/24 0638 Culture No Fungal Growth at 1 Week AFB Blood Culture [[id number]] Collected: 05/17/241812 Order Status: Completed Specimen: Blood, Venous Updated: 05/24/2438 AFB Culture No Mycobacterial Growth at 1 Week Vitals: Visit Vitals BP (!) 141/59 Pulse 88 Temp 37.4 ??C (99.3 ??F) (Bladder) Resp 14 [place] Coma Scale Score: 14 [place] Scale Score: [...] Weight: 61.1 kg (134 lb 12.8 oz) [place] body weight: 47.8 kg (105 lb 4.8 oz) Adjusted ideal body weight: 52.8 kg (116 lb 5.7 oz) (126.25%) of IBW Body mass index is 25.13 kg/m??. Adjusted wt: 50.9 kg (if over 125% of IBW) CENTRAL IV Access: PICC (05/18/24) Estimated Nutritional Needs: HBE: 1153 Stress Factor: 1.2-1.4 Total Calories/day: 2128-2131 Protein (amino acids): 1.3-1.6 grams/kg Protein (Amino [...] Care Surgery Pharmacist TPN Pharmacist available on [employer] [1] Patient Active Problem List Diagnosis Anxiety and depression COPD (chronic obstructive pulmonary disease) ([facility]) CAD, multiple vessel NSTEMI (non-ST elevated myocardial infarction) ([facility]) GERD (gastroesophageal reflux disease) Leukocytosis Hyperlipidemia THOM (obstructive sleep apnea) S/P CABG x 4 Hypertension Cardiac volume overload Hypoglycemia Nausea with vomiting Acute blood loss anemia (ABLA) Gastric perforation ([facility]) On total parenteral nutrition (TPN) Ileus ([facility]) Electrolyte abnormality Colon perforation ([facility]) Post-op pain [2] Past Medical History: Diagnosis Date Anxiety COPD (chronic obstructive pulmonary disease) ([facility]) 05/01/2024 Continue Duo nebs q6 SPO2 goal >88% Depression GERD (gastroesophageal reflux disease) 05/01/2024 Continue Protonix 40 mg daily Hyperkalemia 05/06/2024 Now resolved, pt with hypokalemia requiring replacement On mechanically assisted ventilation ([facility]) 05/06/2024 Arrived to ICU intubated 05/07 extubated to 4LNC 05/08 resolved Tobacco use 05/01/2024 Drug Safety Associate for smoking 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 Complicates all [...] last 7 days Lab Units 05/27/24 0454 05/26/2432605/25/24 2032 HEMOGLOBIN g/dL 9.5* 7.1* 7.2* HEMATOCRIT [...] Addendum 05/23/2024 8:43 AM by Marybel Suarez, ACCOUNTS RECEIVABLE SPECIALIST Continue home bupropion XL 300 mg daily Continue home citalopram 40 mg daily Continue PRN hydroxyzine 25 mg q6 COPD (chronic obstructive pulmonary disease) ([facility]) Yes Overview Addendum 05/23/2024 8:43 AM by Daniela, Marybel D, ACCOUNTS RECEIVABLE SPECIALIST Duo nebs q6 Wean O2 for SPO2 goal >88% NSTEMI (non-ST elevated myocardial infarction) (CMS/HCC) Yes Overview Addendum 05/22/2024 11:00 AM by Jose Aburto MD Diagnosed at OSH with elevated troponins of 0.05 to 0.23 to 0.16 Started on heparin drip GLUER AND SLICER HAND, 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 Repeat troponins pending 05/07 [...] Signed 05/23/2024 8:47 AM by Marybel Suarez, ACCOUNTS RECEIVABLE SPECIALIST Restart statin when no longer NPO THOM (obstructive sleep apnea) Yes Overview Addendum 05/23/2024 8:45 AM by Marybel Suarez, ACCOUNTS RECEIVABLE SPECIALIST Refusing home CPAP remains on NC S/P CABG x 4 Not Applicable Overview Addendum 05/23/2024 8:45 AM by Marybel Suarez, ACCOUNTS RECEIVABLE SPECIALIST 05/06 4vCABG w/ Dr. Austin Aspirin, statin, beta stacey as clinically appropriate Hypertension Yes Overview Addendum 05/23/2024 8:47 AM by Marybel Suarez, ACCOUNTS RECEIVABLE SPECIALIST Metop IV while NPO Restart PO metop when appropriate Cardiac volume overload No Overview Addendum 05/18/2024 10:24 AM by Sidney Jackson MD Diuresis as clinically indicated Hypoglycemia No Overview Addendum 05/23/2024 8:46 AM by Marybel Suarez, ACCOUNTS RECEIVABLE SPECIALIST Resolved once TPN started Nausea with vomiting No Overview Addendum 05/24/2024 11:04 AM by Jose Aburto MD NG in place Okay for sips and chips per surgery team Acute blood loss anemia (ABLA) No Overview Addendum 05/23/2024 8:43 AM by Marybel Suarez, ACCOUNTS RECEIVABLE SPECIALIST Lab Results Component Value Date HGB 9.0 (L) 05/23/2024 CTM with daily labs Transfuse as indicated Gastric perforation (CMS/HCC) No Overview Addendum 05/24/2024 11:03 AM by Jose Aburto MD Unclear gastric vs colonic perforation. S/p ex lap with blue surgery on 05/23 On total parenteral nutrition (TPN) No Overview Signed 05/21/2024 9:26 AM by Reyna Mcdonald, ACCOUNTS RECEIVABLE SPECIALIST Started on 05/20 Ileus (CMS/HCC) No Overview Signed 05/23/2024 8:49 AM by Marybel Suarez, ACCOUNTS RECEIVABLE SPECIALIST - NGT for decompression - blue surgery consulted, appreciate recs - serial CT abdomen and pelvis - remains NPO, on TPN Electrolyte abnormality Yes Overview Signed 05/23/2024 8:50 AM by Marybel Suarez, ACCOUNTS RECEIVABLE SPECIALIST - monitor and replace prn Post-op pain [...] as documented. * Progress Notes - Jose Martin Traylor DO - 05/27/2024 11:12 AM EDTAssociated [...] Abdomen Lower;Upper;Mid 05/23/24 1757 Abdomen 3 GCS: [place] Coma Scale Score: 13 Review of Systems [...] mg q6 COPD (chronic obstructive pulmonary disease) ([facility]) Yes Overview Addendum 05/23/2024 8:43 AM by Marybel Suarez, ARASH Duo nebs q6 Wean O2 for SPO2 goal >88% NSTEMI (non-ST elevated myocardial infarction) ([facility]) Yes Overview Addendum 05/22/2024 11:00 AM by Jose Aburto MD Diagnosed at OSH with elevated troponins of 0.05 to 0.23 to 0.16 Started on heparin drip GLUER AND SLICER HAND, 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 Repeat troponins pending 05/07 [...] Signed 05/23/2024 8:47 AM by Marybel Suarez, ACCOUNTS RECEIVABLE SPECIALIST Restart statin when no longer NPO THOM (obstructive sleep apnea) Yes Overview Addendum 05/23/2024 8:45 AM by Marybel Suarez, ACCOUNTS RECEIVABLE SPECIALIST Refusing home CPAP remains on NC S/P CABG x 4 Not Applicable Overview Addendum 05/23/2024 8:45 AM by Marybel Suarez, ACCOUNTS RECEIVABLE SPECIALIST 05/06 4vCABG w/ Dr. Austin Aspirin, statin, beta stacey as clinically appropriate Hypertension Yes Overview Addendum 05/23/2024 8:47 AM by Marybel Suarez, ACCOUNTS RECEIVABLE SPECIALIST Metop IV while NPO Restart PO metop when appropriate Cardiac volume overload No Overview Addendum 05/18/2024 10:24 AM by Sidney Jackson MD Diuresis as clinically indicated Hypoglycemia No Overview Addendum 05/23/2024 8:46 AM by Marybel Suarez, ACCOUNTS RECEIVABLE SPECIALIST Resolved once TPN started Nausea with vomiting No Overview Addendum 05/24/2024 11:04 AM by Jose Aburto MD NG in place Okay for sips and chips per surgery team Acute blood loss anemia (ABLA) No Overview Addendum 05/23/2024 8:43 AM by Marybel Suarez, ACCOUNTS RECEIVABLE SPECIALIST Lab Results Component Value Date HGB 9.0 (L) 05/23/2024 CTM with daily labs Transfuse as indicated Gastric perforation (CMS/HCC) No Overview Addendum 05/24/2024 11:03 AM by Jose Aburto MD Unclear gastric vs colonic perforation. S/p ex lap with blue surgery on 05/23 On total parenteral nutrition (TPN) No Overview Signed 05/21/2024 9:26 AM by Reyna Mcdonald, ACCOUNTS RECEIVABLE SPECIALIST Started on 05/20 Ileus (CMS/HCC) No Overview Signed 05/23/2024 8:49 AM by Marybel Suarez, ACCOUNTS RECEIVABLE SPECIALIST - NGT for decompression - blue surgery consulted, appreciate recs - serial CT abdomen and pelvis - remains NPO, on TPN Electrolyte abnormality Yes Overview Signed 05/23/2024 8:50 AM by Marybel Suarez, ACCOUNTS RECEIVABLE SPECIALIST - monitor and replace prn Post-op pain [...] 3 Negative Pressure Wound Therapy Abdomen Lower;Upper;Mid 04/09/25 1757 Abdomen 2 GCS: [place] Coma Scale [...] mg q6 COPD (chronic obstructive pulmonary disease) ([facility]) Yes Overview Addendum 05/23/2024 8:43 AM by Marybel Suarez APRN Duo nebs q6 Wean O2 for SPO2 goal >88% NSTEMI (non-ST elevated myocardial infarction) ([facility]) Yes Overview Addendum 05/22/2024 11:00 AM by Jose Aburto MD Diagnosed at OSH with elevated troponins of 0.05 to 0.23 to 0.16 Started on heparin drip GLUER AND SLICER HAND, 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 Repeat troponins pending 05/07 [...] Addendum 05/23/2024 8:50 AM by Marybel Suarez, ACCOUNTS RECEIVABLE SPECIALIST Remains febrile with elevated EBC Cultures ordered and pending Hyperlipidemia Yes Overview Signed 05/23/2024 8:47 AM by Marybel Suarez, ACCOUNTS RECEIVABLE SPECIALIST Restart statin when no longer NPO THOM (obstructive sleep apnea) Yes Overview Addendum 05/23/2024 8:45 AM by Marybel Suarez, ACCOUNTS RECEIVABLE SPECIALIST Refusing home CPAP remains on NC S/P CABG x 4 Not Applicable Overview Addendum 05/23/2024 8:45 AM by Marybel Suarez, ACCOUNTS RECEIVABLE SPECIALIST 05/06 4vCABG w/ Dr. Austin Aspirin, statin, beta stacey as clinically appropriate Hypertension Yes Overview Addendum 05/23/2024 8:47 AM by Marybel Suarez, ACCOUNTS RECEIVABLE SPECIALIST Metop IV while NPO Restart PO metop when appropriate Cardiac volume overload No Overview Addendum 05/18/2024 10:24 AM by Sidney Jackson MD Diuresis as clinically indicated Hypoglycemia No Overview Addendum 05/23/2024 8:46 AM by Marybel Suarez, ACCOUNTS RECEIVABLE SPECIALIST Resolved once TPN started Nausea with vomiting No Overview Addendum 05/24/2024 11:04 AM by Jose Aburto MD NG in place Okay for sips and chips per surgery team Acute blood loss anemia (ABLA) No Overview Addendum 05/23/2024 8:43 AM by Marybel Suarez, ACCOUNTS RECEIVABLE SPECIALIST Lab Results Component Value Date HGB 9.0 [...] Signed 05/23/2024 8:49 AM by Marybel Suarez, ACCOUNTS RECEIVABLE SPECIALIST - NGT for decompression - blue surgery consulted, appreciate recs - serial CT abdomen and pelvis - remains NPO, on TPN Electrolyte abnormality Yes Overview Signed 05/23/2024 8:50 AM by Marybel Suarez, ACCOUNTS RECEIVABLE SPECIALIST - monitor and replace prn Post-op pain [...] Results from last 7 days Lab Units 05/26/2432605/25/24 2032 05/25/24 1355 05/25/24 0811 05/25/24 0245 [...] Value Units Date/Time Blood Culture (Aerobic/Anaerobet Set) [[id number]] Collected: 05/23/24 1020 Order Status: Completed Specimen: Blood, Venous Updated: 05/24/24 1101 Culture No growth at day 1 Fungal Blood Culture [[id number]] Collected: 05/17/241812 Order Status: Completed Specimen: Blood, Venous Updated: 05/24/24 0638 Culture No Fungal Growth at 1 Week AFB Blood Culture [[id number]] Collected: 05/17/241812 Order Status: Completed Specimen: Blood, Venous Updated: 05/24/2438 AFB Culture No Mycobacterial Growth at 1 Week Vitals: Visit Vitals BP (!) 106/90 (BP Location: Right arm, Patient Position: Lying) Pulse 95 Temp 37 ??C (98.6 ??F) Resp 14 [place] Coma Scale Score: 14 Shaan Scale Score: [...] Question: Diet texture Answer: Clear liquid 05/25/24 4902 Current Medications acetaminophen, 1,000 mg, Intravenous, q8h [...] Weight: 61.1 kg (134 lb 12.8 oz) [place] body weight: 47.8 kg (105 lb 4.8 oz) Adjusted ideal body weight: 52.8 kg (116 lb 5.7 oz) (126.25%) of IBW Body mass index is 25.13 kg/m??. Adjusted wt: 50.9 kg (if over 125% of IBW) CENTRAL IV Access: PICC (05/18/24) Estimated Nutritional Needs: HBE: 1153 Stress Factor: 1.2-1.4 Total Calories/day: 4939-9076 Protein (amino acids): 1.3-1.6 grams/kg Protein (Amino [...] Care Surgery Pharmacist TPN Pharmacist available on [employer] [1] Patient Active Problem List Diagnosis Anxiety and depression COPD (chronic obstructive pulmonary disease) (CMS/HCC) CAD, multiple vessel NSTEMI (non-ST elevated myocardial infarction) (CMS/HCC) GERD (gastroesophageal reflux disease) Leukocytosis Hyperlipidemia THOM (obstructive sleep apnea) S/P CABG x 4 Hypertension Cardiac volume overload Hypoglycemia Nausea with vomiting Acute blood loss anemia (ABLA) Gastric perforation (CMS/HCC) On total parenteral nutrition (TPN) Ileus ([facility]/HCC) Electrolyte abnormality Colon perforation ([facility]) Post-op pain [2] Past Medical History: Diagnosis Date Anxiety COPD (chronic obstructive pulmonary disease) (CMS/HCC) 05/01/2024 Continue Duo nebs q6 SPO2 goal >88% Depression GERD (gastroesophageal reflux disease) 05/01/2024 Continue Protonix 40 mg daily Hyperkalemia 05/06/2024 Now resolved, pt with hypokalemia requiring replacement On mechanically assisted ventilation ([facility]/HCC) 05/06/2024 Arrived to ICU intubated 05/07 extubated to 4LNC 05/08 resolved Tobacco use 05/01/2024 Drug Safety Associate for smoking 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 Complicates all [...] EDT Surgical ICU Daily Progress Note 05/26/24 Reer Hunter HPI 53F with history of HTN, [...] Method: Nasal cannula Output by Drain (mL) 04/10/25 0700 - 05/24/24 1859 05/24/24 1900 - 05/25/24 0659 05/25/24 07 - 05/25/24 1859 05/25/24 1900 - 05/26/24 [...] mg q6 COPD (chronic obstructive pulmonary disease) ([facility]) Yes Overview Addendum 05/23/2024 8:43 AM by Marybel Suarez, ARASH Duo nebs q6 Wean O2 for SPO2 goal >88% NSTEMI (non-ST elevated myocardial infarction) ([facility]) Yes Overview Addendum 05/22/2024 11:00 AM by Jose Aburto MD Diagnosed at OSH with elevated troponins of 0.05 to 0.23 to 0.16 Started on heparin drip GLUER AND SLICER HAND, 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 Repeat troponins pending 05/07 [...] Signed 05/23/2024 8:47 AM by Marybel Suarez, ACCOUNTS RECEIVABLE SPECIALIST Restart statin when no longer NPO THOM (obstructive sleep apnea) Yes Overview Addendum 05/23/2024 8:45 AM by Marybel Suarez, ACCOUNTS RECEIVABLE SPECIALIST Refusing home CPAP remains on NC S/P CABG x 4 Not Applicable Overview Addendum 05/23/2024 8:45 AM by Marybel Suarez, ACCOUNTS RECEIVABLE SPECIALIST 05/06 4vCABG w/ Dr. Austin Aspirin, statin, beta stacey as clinically appropriate Hypertension Yes Overview Addendum 05/23/2024 8:47 AM by Marybel Suarez, ACCOUNTS RECEIVABLE SPECIALIST Metop IV while NPO Restart PO metop when appropriate Cardiac volume overload No Overview Addendum 05/18/2024 10:24 AM by Sidney Jackson MD Diuresis as clinically indicated Hypoglycemia No Overview Addendum 05/23/2024 8:46 AM by Marybel Suarez, ACCOUNTS RECEIVABLE SPECIALIST Resolved once TPN started Nausea with vomiting No Overview Addendum 05/24/2024 11:04 AM by Jose Aburto MD NG in place Okay for sips and chips per surgery team Acute blood loss anemia (ABLA) No Overview Addendum 05/23/2024 8:43 AM by Marybel Suarez, ACCOUNTS RECEIVABLE SPECIALIST Lab Results Component Value Date HGB 9.0 (L) 05/23/2024 CTM with daily labs Transfuse as indicated Gastric perforation (CMS/HCC) No Overview Addendum 05/24/2024 11:03 AM by Jose Aburto MD Unclear gastric vs colonic perforation. S/p ex lap with blue surgery on 05/23 On total parenteral nutrition (TPN) No Overview Signed 05/21/2024 9:26 AM by Reyna Mcdonald, ACCOUNTS RECEIVABLE SPECIALIST Started on 05/20 Ileus (CMS/HCC) No Overview Signed 05/23/2024 8:49 AM by Marybel Suarez, ACCOUNTS RECEIVABLE SPECIALIST - NGT for decompression - blue surgery consulted, appreciate recs - serial CT abdomen and pelvis - remains NPO, on TPN Electrolyte abnormality Yes Overview Signed 05/23/2024 8:50 AM by Marybel Suraez, ACCOUNTS RECEIVABLE SPECIALIST - monitor and replace prn Post-op pain [...] Edited by: Iman Massey MD at 05/26/2024 5218 Iman Massey MD Procedures Cosigned by Graciela [...] 3. Cardiac volume overload 4. Colon perforation ([facility]) Procedures 05/23/2024 Procedure(s): LAPAROTOMY, EXPLORATORY, possible bowel resection, possible ostomy COLECTOMY, PARTIAL Past Medical History Patient has a past medical history of Anxiety, COPD (chronic obstructive pulmonary disease) ([facility]) (05/01/2024), Depression, GERD (gastroesophageal reflux disease) (05/01/2024), Hyperkalemia (05/06/2024), On mechanically assisted ventilation ([facility]) (05/06/2024), Tobacco use (05/01/2024), and T remor (05/01/2024). Past Surgical History Patient has a past surgical history that includes section, classic; Cholecystectomy; Shoulder surgery; Abdominal adhesion surgery; Hand surgery (Right); and Coronary artery bypass graft (05/06/2024). Precautions Medical Precautions: Fall precautions, Sternal Subjective Pt agreeable to OT session. Participants in Care Family/Caregiver Present: Yes Family/Caregiver: Other (Specify) (Friend) Water Purifier: Not Applicable Presentation Oxygen Therapy: Supplemental oxygen O2 Delivery Method: Nasal cannula O2 Flow Rate (L/min): 2 L/min Lines and Tubes: Telemetry Arterial Line 05/23/24 Right Radial (Active) Closed/Suction Drain 1 Inferior;Left Abdomen Bulb 19 Fr. (Active) Closed/Suction Drain 1 Left Abdomen Bulb 19 Fr. (Active) NG/OG [place] Sump 14 Fr Right nostril (Active) Colostomy [...] admission Level of Mobility: Ambulatory- community Mobility [place]: Independent gait without device (pt is the [...] Mobility Bed Mobility Exam: Rolling/Turning Level of [place]: Maximum assist (25% patient effort) Physical/Nonphysical Assist: Verbal Cues, Nonverbal cues (demo/gestures), Additional assist utilized for safety, Moderate cues Bed Mobility Exam: Scooting/Bridging Level of [place]: Minimum assist (75% patient's effort) Physical/Nonphysical Assist: Additional assist utilized for safety, Verbal Cues, Set-up required, Moderate cues Bed Mobility Exam: Supine to Sit Level of [place]: Maximum assist (25% patient's effort) Physical/Nonphysical Assist: Verbal Cues, Nonverbal cues (demo/gestures), Moderate cues, HOB elevated, Additional assist utilized for safety Transfers Transfer Exam: Sit to stand Level of [place]: Contact guard Physical/Nonphysical Assist: Verbal Cues, Moderate cues, Additional assist utilized for safety Assistive Device: Hand held assist Transfer Exam: Stand to Sit Level of [place]: Contact guard Physical/Nonphysical Assist: Verbal Cues, Additional assist utilized for safety, Moderate cues Assistive Device: Hand held assist Transfer Exam: Bed to Chair/Chair to Bed Level of [place]: Minimum assist (75% patient's effort) Physical/Nonphysical Assist: [...] to sit portion of transfer. Standardized Assessments [facility] 6-Click Daily Activities Help from Other: Don/Doff Regular Lower Body Clothings: A lot Help From Other: Bathing: A lot Help From Other: Toileting: A lot Help From Other: Don/Doff Upper Body Clothings: A lot Help From Other: Grooming: Little Help From Other: Eating Meals: A lot [facility] 6 Click - Daily Activities Score: 13 [...] 3. Cardiac volume overload 4. Colon perforation ([facility]) Procedures 05/23/2024 Procedure(s): LAPAROTOMY, EXPLORATORY, possible bowel resection, possible ostomy COLECTOMY, PARTIAL Past Medical History Patient has a past medical history of Anxiety, COPD (chronic obstructive pulmonary disease) ([facility]) (05/01/2024), Depression, GERD (gastroesophageal reflux disease) (05/01/2024), Hyperkalemia (05/06/2024), On mechanically assisted ventilation ([facility]) (05/06/2024), Tobacco use (05/01/2024), and T remor [...] Family/Caregiver Present: Yes Family/Caregiver: Other (Specify) (Friend) Water Purifier: Not Applicable Presentation Oxygen Therapy: Supplemental oxygen O2 Delivery Method: Nasal cannula O2 Flow Rate (L/min): 2 L/min Lines and Tubes: Telemetry Arterial Line 05/23/24 Right Radial (Active) Closed/Suction Drain 1 Inferior;Left Abdomen Bulb 19 Fr. (Active) Closed/Suction Drain 1 Left Abdomen Bulb 19 Fr. (Active) NG/OG [place] Sump 14 Fr Right nostril (Active) Colostomy [...] admission Level of Mobility: Ambulatory- community Mobility [place]: Independent gait without device (pt is the [...] Mobility Bed Mobility Exam: Rolling/Turning Level of [place]: Maximum assist (25% patient effort) Physical/Nonphysical Assist: Verbal Cues, Nonverbal cues (demo/gestures), Additional assist utilized for safety, Moderate cues Bed Mobility Exam: Scooting/Bridging Level of [place]: Minimum assist (75% patient's effort) Physical/Nonphysical Assist: Additional assist utilized for safety, Verbal Cues, Set-up required, Moderate cues Bed Mobility Exam: Supine to Sit Level of [place]: Maximum assist (25% patient's effort) Physical/Nonphysical Assist: Verbal Cues, Nonverbal cues (demo/gestures), Moderate cues, HOB elevated, Additional assist utilized for safety Transfers Transfer Exam: Sit to stand Level of [place]: Contact guard Physical/Nonphysical Assist: Verbal Cues, Moderate cues, Additional assist utilized for safety Assistive Device: Hand held assist Transfer Exam: Stand to Sit Level of [place]: Contact guard Physical/Nonphysical Assist: Verbal Cues, Additional assist utilized for safety, Moderate cues Assistive Device: Hand held assist Transfer Exam: Bed to Chair/Chair to Bed Level of [place]: Minimum assist (75% patient's effort) Physical/Nonphysical Assist: [...] rapid fatigue with all mobility. Standardized Assessments [facility] 6-Clicks Mobility Assessment Difficulty patient has turning [...] 3-5 steps with a railing?: A lot [facility] 6-Clicks Mobility Assessment Total : 14 No [...] 19 Fr. 05/23/24 1714 Abdomen 1 NG/OG [place] Sump 14 Fr Right nostril 05/11/24 2300 Right nostril 13 Colostomy Transverse RUQ 05/23/24 -- RUQ 2 Urethral Catheter Non-latex;Single lumen;Temperature probe 16 Fr. 05/23/24 1355 -- 1 Arterial Line 05/23/24 Right Radial 05/23/24 1440 Radial 1 Negative Pressure Wound Therapy Abdomen Lower;Upper;Mid 05/23/24 1757 Abdomen 1 GCS: [place] Coma Scale Score: 15 Review of Systems [...] Addendum 05/23/2024 8:44 AM by Marybel Suarez, ACCOUNTS RECEIVABLE SPECIALIST Patient presented to OSH on 05/01/24 c/o chest pain, LHC reveal mvCAD S/p CABG with Dr. Austin on 05/07 Anxiety and depression Yes Overview Addendum 05/23/2024 8:43 AM by Marybel Suarez, ACCOUNTS RECEIVABLE SPECIALIST Continue home bupropion XL 300 mg daily Continue home citalopram 40 mg daily Continue PRN hydroxyzine 25 mg q6 COPD (chronic obstructive pulmonary disease) ([facility]) Yes Overview Addendum 05/23/2024 8:43 AM by Marybel Suarez, ACCOUNTS RECEIVABLE SPECIALIST Duo nebs q6 Wean O2 for SPO2 goal >88% NSTEMI (non-ST elevated myocardial infarction) ([facility]) Yes Overview Addendum 05/22/2024 11:00 AM by Jose Aburto MD Diagnosed at OSH with elevated troponins of 0.05 to 0.23 to 0.16 Started on heparin drip GLUER AND SLICER HAND, 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 Repeat troponins pending 05/07 [...] Signed 05/23/2024 8:47 AM by Marybel Suarez, ACCOUNTS RECEIVABLE SPECIALIST Restart statin when no longer NPO THOM (obstructive sleep apnea) Yes Overview Addendum 05/23/2024 8:45 AM by Marybel Suarez, ACCOUNTS RECEIVABLE SPECIALIST Refusing home CPAP remains on NC S/P CABG x 4 Not Applicable Overview Addendum 05/23/2024 8:45 AM by Marybel Suarez, ACCOUNTS RECEIVABLE SPECIALIST 05/06 4vCABG w/ Dr. Austin Aspirin, statin, beta stacey as clinically appropriate Hypertension Yes Overview Addendum 05/23/2024 8:47 AM by Marybel Suarez, ACCOUNTS RECEIVABLE SPECIALIST Metop IV while NPO Restart PO metop when appropriate Cardiac volume overload No Overview Addendum 05/18/2024 10:24 AM by Sidney Jackson MD Diuresis as clinically indicated Hypoglycemia No Overview Addendum 05/23/2024 8:46 AM by Marybel Suarez, ACCOUNTS RECEIVABLE SPECIALIST Resolved once TPN started Nausea with vomiting No Overview Addendum 05/24/2024 11:04 AM by Jose Aburto MD NG in place Okay for sips and chips per surgery team Acute blood loss anemia (ABLA) No Overview Addendum 05/23/2024 8:43 AM by Marybel Suarez, ACCOUNTS RECEIVABLE SPECIALIST Lab Results Component Value Date HGB 9.0 [...] Signed 05/23/2024 8:49 AM by Marybel Suarez, ACCOUNTS RECEIVABLE SPECIALIST - NGT for decompression - blue surgery consulted, appreciate recs - serial CT abdomen and pelvis - remains NPO, on TPN Electrolyte abnormality Yes Overview Signed 05/23/2024 8:50 AM by Marybel Suarez, ACCOUNTS RECEIVABLE SPECIALIST - monitor and replace prn Post-op pain Unknown Overview Addendum 05/25/2024 10:12 AM by Dave Baird, DO Abdominal tenderness and pain 10/10 Increase dilaudid IV ketamine Colon perforation (CMS/HCC) [...] Units 05/25/24 0245 05/24/24 1018 05/23/24 1954 04/09/193805/23/24 1414 05/23/24 1300 05/23/24 1140 05/23/24 0540 [...] 0811 05/25/24 0245 05/24/24 1018 05/23/24 19305/23/24 0620 05/23/24 0540 05/23/24 0115 05/22/24 0613 [...] Value Units Date/Time Blood Culture (Aerobic/Anaerobet Set) [[id number]] Collected: 05/23/24 1020 Order Status: Completed Specimen: Blood, Venous Updated: 05/24/24 1101 Culture No growth at day 1 Fungal Blood Culture [[id number]] Collected: 05/17/241812 Order Status: Completed Specimen: Blood, Venous Updated: 05/24/2438 Culture No Fungal Growth at 1 Week AFB Blood Culture [[id number]] Collected: 05/17/241812 Order Status: Completed Specimen: Blood, Venous Updated: 05/24/24637 AFB Culture No Mycobacterial Growth at 1 Week Vitals: Visit Vitals BP (!) 106/90 (BP Location: Right arm, Patient Position: Lying) Pulse 106 Temp 37.7 ??C (99.9 ??F) (Bladder) Resp 19 [place] Coma Scale Score: 15 [place] Scale Score: [...] Weight: 61.1 kg (134 lb 12.8 oz) [place] body weight: 47.8 kg (105 lb 4.8 oz) Adjusted ideal body weight: 52.8 kg (116 lb 5.7 oz) (126.25%) of IBW Body mass index is 25.13 kg/m??. Adjusted wt: 50.9 kg (if over 125% of IBW) CENTRAL IV Access: PICC (05/18/24) Estimated Nutritional Needs: HBE: 1153 Stress Factor: 1.2-1.4 Total Calories/day: 7719-5313 Protein (amino acids): 1.3-1.6 grams/kg Protein (Amino [...] and depression COPD (chronic obstructive pulmonary disease) ([facility]/HCC) CAD, multiple vessel NSTEMI (non-ST elevated myocardial infarction) ([facility]) GERD (gastroesophageal reflux disease) Leukocytosis Hyperlipidemia THOM [...] to 4LNC 05/08 resolved Tobacco use 05/01/2024 Drug Safety Associate for smoking 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 Complicates all [...] - 05/24/24 18505/24/24 190 - 05/25/24 0659 05/25/24699 - 05/25/24 0922 Closed/Suction Drain 1 Inferior;Left [...] Edited by: Betty Nino MD at 05/25/2024 0872 Betty Nino MD Cosigned by Judy Mancuso [...] Edited by: Iman Massey MD at 05/24/2024 3710 Relevant review of systems was obtained as [...] Method: Nasal cannula Output by Drain (mL) 05/22/24 07 - 05/22/24 18505/22/24 190 - 05/23/24 0659 [...] mg q6 COPD (chronic obstructive pulmonary disease) ([facility]) Yes Overview Addendum 05/23/2024 8:43 AM by Marybel Suarez APRN Duo nebs q6 Wean O2 for SPO2 goal >88% NSTEMI (non-ST elevated myocardial infarction) ([facility]) Yes Overview Addendum 05/22/2024 11:00 AM by Jose Aburto MD Diagnosed at OSH with elevated troponins of 0.05 to 0.23 to 0.16 Started on heparin drip GLUER AND SLICER HAND, 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 Repeat troponins pending 05/07 [...] Addendum 05/23/2024 8:50 AM by Marybel Suarez, ACCOUNTS RECEIVABLE SPECIALIST Remains febrile with elevated EBC Cultures ordered and pending Hyperlipidemia Yes Overview Signed 05/23/2024 8:47 AM by Marybel Suarez, ACCOUNTS RECEIVABLE SPECIALIST Restart statin when no longer NPO THOM (obstructive sleep apnea) Yes Overview Addendum 05/23/2024 8:45 AM by Marybel Suarez, ACCOUNTS RECEIVABLE SPECIALIST Refusing home CPAP remains on NC S/P CABG x 4 Not Applicable Overview Addendum 05/23/2024 8:45 AM by Marybel Suarez, ACCOUNTS RECEIVABLE SPECIALIST 05/06 4vCABKeira w/ Dr. Austin Aspirin, statin, beta stacey as clinically appropriate Hypertension Yes Overview Addendum 05/23/2024 8:47 AM by Marybel Suarez, ACCOUNTS RECEIVABLE SPECIALIST Metop IV while NPO Restart PO metop when appropriate Cardiac volume overload No Overview Addendum 05/18/2024 10:24 AM by Sidney Jackson MD Diuresis as clinically indicated Hypoglycemia No Overview Addendum 05/23/2024 8:46 AM by Marybel Suarez, ACCOUNTS RECEIVABLE SPECIALIST Resolved once TPN started Nausea with vomiting No Overview Addendum 05/24/2024 11:04 AM by Jose Aburto MD NG in place Okay for sips and chips per surgery team Acute blood loss anemia (ABLA) No Overview Addendum 05/23/2024 8:43 AM by Marybel Suarez, ACCOUNTS RECEIVABLE SPECIALIST Lab Results Component Value Date HGB 9.0 (L) 05/23/2024 CTM with daily labs Transfuse as indicated Gastric perforation (CMS/HCC) No Overview Addendum 05/24/2024 11:03 AM by Jose Aburto MD Unclear gastric vs colonic perforation. S/p ex lap with blue surgery on 05/23 On total parenteral nutrition (TPN) No Overview Signed 05/21/2024 9:26 AM by Reyna Mcdonald ACCOUNTS RECEIVABLE SPECIALIST Started on 05/20 Ileus (CMS/HCC) No Overview Signed 05/23/2024 8:49 AM by Marybel Suarez, ACCOUNTS RECEIVABLE SPECIALIST - NGT for decompression - blue surgery consulted, appreciate recs - serial CT abdomen and pelvis - remains NPO, on TPN Electrolyte abnormality Yes Overview Signed 05/23/2024 8:50 AM by Marybel Suarez, ACCOUNTS RECEIVABLE SPECIALIST - monitor and replace prn Colon perforation [...] now. Continue antibiotics for 4d post-op. Judy Mancuso MD, PhD Acute Care Surgery, [...] 2 piece;Flat Barrier/Pouch 05/24/24 1020 Site Assessment Moist;Raised;Red;[place] 05/24/24 1020 Peristomal Assessment Unable to assess 05/24/24 1020 Treatment Site care 05/23/24 2000 Output (mL) 0 mL 05/24/24 0800 Gastric Output Appearance Loose 05/24/24 1020 Gastric Output Color Brown 05/24/24 1020 Lester Lazo RN OCN 05/24/2024 11:56 AM * Clinician Note - [...] Drain 1 Inferior;Left Abdomen Bulb 19 Fr. 04/09/25 1714 Abdomen less than 1 Closed/Suction Drain 1 Left Abdomen Bulb 19 Fr. 05/23/24 1714 Abdomen less than 1 NG/OG [place] Sump 14 Fr Right nostril 05/11/24 2300 Right nostril 12 Colostomy Transverse RUQ 05/23/24 -- RUQ 1 Urethral Catheter Non-latex;Single lumen;Temperature probe 16 Fr. 05/23/24 1355 -- less than 1 Arterial Line 05/23/24 Right Radial 05/23/24 1440 Radial less than 1 Negative Pressure Wound Therapy Abdomen Lower;Upper;Mid 05/23/24 1757 Abdomen less than 1 GCS: [place] Coma Scale Score: 13 Review of Systems [...] 05/23/2024 8:43 AM by Daniela, Marybel D, ACCOUNTS RECEIVABLE SPECIALIST Continue home bupropion XL 300 mg daily Continue home citalopram 40 mg daily Continue PRN hydroxyzine 25 mg q6 COPD (chronic obstructive pulmonary disease) ([facility]/HCC) Yes Overview Addendum 05/23/2024 8:43 AM by Marybel Suarez, ACCOUNTS RECEIVABLE SPECIALIST Duo nebs q6 Wean O2 for SPO2 goal >88% NSTEMI (non-ST elevated myocardial infarction) ([facility]) Yes Overview Addendum 05/22/2024 11:00 AM by Jose Aburto MD Diagnosed at OSH with elevated troponins of 0.05 to 0.23 to 0.16 Started on heparin drip GLUER AND SLICER HAND, 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 Repeat troponins pending 05/07 [...] Signed 05/23/2024 8:47 AM by Marybel Suarez, ACCOUNTS RECEIVABLE SPECIALIST Restart statin when no longer NPO THOM (obstructive sleep apnea) Yes Overview Addendum 05/23/2024 8:45 AM by Marybel Suarez, ACCOUNTS RECEIVABLE SPECIALIST Refusing home CPAP remains on NC S/P CABG x 4 Not Applicable Overview Addendum 05/23/2024 8:45 AM by Marybel Suarez, ACCOUNTS RECEIVABLE SPECIALIST 05/06 4vCABG w/ Dr. Austin Aspirin, statin, beta stacey as clinically appropriate Hypertension Yes Overview Addendum 05/23/2024 8:47 AM by Marybel Suarez, ACCOUNTS RECEIVABLE SPECIALIST Metop IV while NPO Restart PO metop when appropriate Cardiac volume overload No Overview Addendum 05/18/2024 10:24 AM by Sidney Jackson MD Diuresis as clinically indicated Hypoglycemia No Overview Addendum 05/23/2024 8:46 AM by Marybel Suarez, ACCOUNTS RECEIVABLE SPECIALIST Resolved once TPN started Nausea with vomiting No Overview Addendum 05/24/2024 11:04 AM by Jose Aburto MD NG in place Okay for sips and chips per surgery team Acute blood loss anemia (ABLA) No Overview Addendum 05/23/2024 8:43 AM by Marybel Suarez, ACCOUNTS RECEIVABLE SPECIALIST Lab Results Component Value Date HGB 9.0 (L) 05/23/2024 CTM with daily labs Transfuse as indicated Gastric perforation (CMS/HCC) No Overview Addendum 05/24/2024 11:03 AM by Jose Aburto MD Unclear gastric vs colonic perforation. S/p ex lap with blue surgery on 05/23 On total parenteral nutrition (TPN) No Overview Signed 05/21/2024 9:26 AM by Reyna Mcdonald ACCOUNTS RECEIVABLE SPECIALIST Started on 05/20 Ileus (CMS/HCC) No Overview Signed 05/23/2024 8:49 AM by Marybel Suarez, ACCOUNTS RECEIVABLE SPECIALIST - NGT for decompression - blue surgery consulted, appreciate recs - serial CT abdomen and pelvis - remains NPO, on TPN Electrolyte abnormality Yes Overview Signed 05/23/2024 8:50 AM by Marybel Suarez, ACCOUNTS RECEIVABLE SPECIALIST - monitor and replace prn Colon perforation [...] Note Rere Hunter 53 y.o. female CSN: [id number] Admission: 05/01/2024 11:01 PM Primary Problem: CAD, [...] Component Value Units Date/Time Fungal Blood Culture [[id number]] Collected: 05/17/241812 Order Status: Completed Specimen: Blood, Venous Updated: 05/24/24637 Culture No Fungal Growth at 1 Week AFB Blood Culture [[id number]] Collected: 05/17/241812 Order Status: Completed Specimen: Blood, Venous Updated: 05/24/24637 AFB Culture No Mycobacterial Growth at 1 Week Blood Culture (Aerobic/Anaerobet Set) [[id number]] Collected: 05/23/24 1020 Order Status: Completed Specimen: Blood, Venous Updated: 05/23/24 120 Culture Culture in lab Blood Culture (Aerobic/Anaerobet Set) [[id number]] Collected: 05/17/24 1116 Order Status: Completed Specimen: Blood from Wrist, Right Updated: 05/22/24 120 Culture No growth at day 5 Vitals: [...] Orders (From admission, onward) Start Ordered 05/18/24 171 NPO diet Diet effective now 05/18/24 1717 [...] Weight: 61.1 kg (134 lb 12.8 oz) [place] body weight: 47.8 kg (105 lb 4.8 oz) Adjusted ideal body weight: 52.8 kg (116 lb 5.7 oz) (126.25%) of IBW Body mass index is 25.13 kg/m??. Adjusted wt: 50.9 kg (if over 125% of IBW) CENTRAL IV Access: PICC (05/18/24) Estimated Nutritional Needs: HBE: 1153 Stress Factor: 1.2-1.4 Total Calories/day: 7277-8165 Protein (amino acids): 1.3-1.6 grams/kg Protein (Amino [...] (CMS/HCC) On total parenteral nutrition (TPN) Ileus ([facility]/HCC) Electrolyte abnormality Colon perforation ([facility]/HCC) [2] Past Medical History: Diagnosis Date Anxiety COPD (chronic obstructive pulmonary disease) (CMS/HCC) 05/01/2024 Continue Duo nebs q6 SPO2 goal >88% Depression GERD (gastroesophageal reflux disease) 05/01/2024 Continue Protonix 40 mg daily Hyperkalemia 05/06/2024 Now resolved, pt with hypokalemia requiring replacement On mechanically assisted ventilation (CMS/HCC) 05/06/2024 Arrived to ICU intubated 05/07 extubated to 4LNC 05/08 resolved Tobacco use 05/01/2024 Drug Safety Associate for smoking 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 Complicates all [...] SURGERY Cosigned by Moni Méndez, PharmD at 05/24/2024 3:06 PM EDT Associated attestation [...] ostomy, possible stomach repair Edited by: Iman Massey MD at 05/23/2024 1441 Relevant review of [...] 05/22/24 1859 05/22/24 190 - 05/23/24 0659 05/23/24699 - 05/23/24 1441 Requested LDAs do not [...] mg q6 COPD (chronic obstructive pulmonary disease) ([facility]) Yes Overview Addendum 05/23/2024 8:43 AM by Marybel Suarez APRN Duo nebs q6 Wean O2 for SPO2 goal >88% NSTEMI (non-ST elevated myocardial infarction) ([facility]) Yes Overview Addendum 05/22/2024 11:00 AM by Jose Aburto MD Diagnosed at OSH with elevated troponins of 0.05 to 0.23 to 0.16 Started on heparin drip GLUER AND SLICER HAND, 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 Repeat troponins pending 05/07 [...] Signed 05/23/2024 8:47 AM by Marybel Suarez, ACCOUNTS RECEIVABLE SPECIALIST Restart statin when no longer NPO THOM (obstructive sleep apnea) Yes Overview Addendum 05/23/2024 8:45 AM by Marybel Suarez, ACCOUNTS RECEIVABLE SPECIALIST Refusing home CPAP remains on NC S/P CABG x 4 Not Applicable Overview Addendum 05/23/2024 8:45 AM by Marybel Suarez APRN 05/06 4vCABG w/ Dr. Austin Aspirin, statin, beta stacey as clinically appropriate Hypertension Yes Overview Addendum 05/23/2024 8:47 AM by Marybel Suarez, ACCOUNTS RECEIVABLE SPECIALIST Metop IV while NPO Restart PO metop when appropriate Cardiac volume overload No Overview Addendum 05/18/2024 10:24 AM by Sidney Jackson MD Diuresis as clinically indicated Hypoglycemia No Overview Addendum 05/23/2024 8:46 AM by Marybel Suarez, ARASH Resolved once TPN started Nausea with vomiting [...] Addendum 05/23/2024 8:43 AM by Marybel Suarez, ACCOUNTS RECEIVABLE SPECIALIST Lab Results Component Value Date HGB 9.0 [...] Signed 05/23/2024 8:49 AM by Marybel Suarez ACCOUNTS RECEIVABLE SPECIALIST - NGT for decompression - blue surgery [...] Cosigned by Judy Mancuso MD at 05/27/2024 8:07 PM EDT Associated [...] as documented. * Op Note - Lidia Troncsoo MD - 05/23/2024 2:19 PM EDT Operative Note Date: 05/23/24 Location: [facility] Name: Rere Hunter, : 1970, Diagnoses: Pre-op Diagnosis Colon perforation (CMS/HCC) Post-op Diagnosis Colon perforation (CMS/HCC) Procedure(s): Left colon resection, drainage of abscess Attending Surgeon(s): Panel 1: * Judy Mancuso - Primary Panel 2: * Lidia Troncoso - Primary Sterile Processing Technician(s): Panel 1: * Betty Nino MD - Resident - Assisting Anesthesia: General ASA: IV Blood Administration: Blood Product Administration History Product Date Volume Status Transfuse RBC RBC 05/23/2024 350 mL Stopped Transfuse RBC 05/17/2024 300 mL Completed 05/17/24 1446 Transfuse RBC 05/14/2024 300 mL Completed 05/14/24 1526 Transfuse RBC 05/09/2024 300 mL Completed 05/09/24 0701 Transfuse platelets PLT 05/06/2024 200 mL Completed 05/06/24 210 Transfuse RBC RBC 05/06/2024 350 mL Completed [...] suction 05/24/24 0400 Output (mL) 35 mL 05/24/24599 NG/OG [place]se[place] Sump 14 Fr Right nostril (Active) Placement [...] PM EDT Operative Note Date: 05/23/24 Location: [facility] Name: Rere Hunter, : 1970, Diagnoses: Pre-op Diagnosis Hollow viscus perforation Post-op Diagnosis Colon perforation (CMS/HCC) Procedure(s): Exploratory laparotomy Extensive lysis of adhesions Left colectomy (performed by colorectal surgery) End colostomy creation Abdominal washout Application of negative pressure wound VAC therapy to skin and soft tissues Attending Surgeon(s): Panel 1: * Judy Mancuso - Primary Panel 2: * Lidia Troncoso - Primary Sterile Processing Technician(s): Panel 1: * Betty Nino MD - [...] Output (mL) 35 mL 05/24/24 06 NG/OG [place] Sump 14 Fr Right nostril (Active) Placement [...] Anterior;Left Forearm 05/12/24 0030 Forearm 11 NG/OG [place] Sump 14 Fr Right nostril 05/11/24 2300 Right nostril 11 GCS: [place] Coma Scale Score: 15 Review of Systems [...] mg q6 COPD (chronic obstructive pulmonary disease) ([facility]) Yes Overview Addendum 05/23/2024 8:43 AM by Marybel Suarez, ARASH Duo nebs q6 Wean O2 for SPO2 goal >88% NSTEMI (non-ST elevated myocardial infarction) ([facility]) Yes Overview Addendum 05/22/2024 11:00 AM by Jose Aburto MD Diagnosed at OSH with elevated troponins of 0.05 to 0.23 to 0.16 Started on heparin drip GLUER AND SLICER HAND, 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 Repeat troponins pending 05/07 [...] Addendum 05/23/2024 8:50 AM by Marybel Suarez, ACCOUNTS RECEIVABLE SPECIALIST Remains febrile with elevated EBC Cultures ordered and pending Hyperlipidemia Yes Overview Signed 05/23/2024 8:47 AM by Marybel Suarez, ACCOUNTS RECEIVABLE SPECIALIST Restart statin when no longer NPO THOM (obstructive sleep apnea) Yes Overview Addendum 05/23/2024 8:45 AM by Marybel Suarez, ACCOUNTS RECEIVABLE SPECIALIST Refusing home CPAP remains on NC S/P CABG x 4 Not Applicable Overview Addendum 05/23/2024 8:45 AM by Marybel Suarez, ACCOUNTS RECEIVABLE SPECIALIST 05/06 4vCABG w/ Dr. Austin Aspirin, statin, beta stacey as clinically appropriate Hypertension Yes Overview Addendum 05/23/2024 8:47 AM by Marybel Suarez, ACCOUNTS RECEIVABLE SPECIALIST Metop IV while NPO Restart PO metop when appropriate Cardiac volume overload No Overview Addendum 05/18/2024 10:24 AM by Sidney Jackson MD Diuresis as clinically indicated Hypoglycemia No Overview Addendum 05/23/2024 8:46 AM by Marybel Suarez, ACCOUNTS RECEIVABLE SPECIALIST Resolved once TPN started Nausea with vomiting [...] Addendum 05/23/2024 8:43 AM by Marybel Suarez, ACCOUNTS RECEIVABLE SPECIALIST Lab Results Component Value Date HGB 9.0 [...] Overview Signed 05/21/2024 9:26 AM by Reyna Mcdoanld APRN Started on 05/20 Ileus (CMS/HCC) No [...] Arterial Line 05/23/24 Right Radial (Active) NG/OG [place] Sump 14 Fr Right nostril (Active) Urethral [...] to redirect Transfers Toilet Transfer Level of [place]: Contact guard Physical/Nonphysical Assist: Verbal Cues, Moderate [...] date. Participants in Care Family/Caregiver Present: No Water Purifier: Not Applicable Presentation Oxygen Therapy: Supplemental oxygen O2 Delivery Method: Nasal cannula O2 Flow Rate (L/min): 2 L/min Lines and Tubes: Telemetry NG/OG [place] Sump 14 Fr Right nostril (Active) PICC [...] Mobility Bed Mobility Exam: Rolling/Turning Level of [place]: Contact guard Physical/Nonphysical Assist: Verbal Cues, Nonverbal cues (demo/gestures), Additional assist utilized for safety, Moderate cues Bed Mobility Exam: Scooting/Bridging Level of [place]: Contact guard Physical/Nonphysical Assist: Additional assist utilized for safety, Verbal Cues, Set-up required Bed Mobility Exam: Supine to Sit Level of [place]: Contact guard Physical/Nonphysical Assist: Verbal Cues, Nonverbal cues (demo/gestures), Moderate cues, HOB elevated Bed Mobility Exam: Sit to Supine Level of [place]: Contact guard Physical/Nonphysical Assist: HOB elevated, Nonverbal cues (demo/gestures), Verbal Cues, Moderate cues, Additional assist utilized for safety Transfers Transfer Exam: Sit to stand Level of [place]: Contact guard Physical/Nonphysical Assist: Verbal Cues, Moderate cues, Additional assist utilized for safety Assistive Device: Rollator Transfer Exam: Stand to Sit Level of [place]: Contact guard Physical/Nonphysical Assist: Verbal Cues, Set-up required, Additional assist utilized for safety Assistive Device: Rollator Toilet Transfer Level of [place]: Contact guard Physical/Nonphysical Assist: Supervision, Verbal Cues, [...] Value Units Date/Time Blood Culture (Aerobic/Anaerobet Set) [[id number]] Collected: 05/17/24 1116 Order Status: Completed Specimen: Blood from Wrist, Right Updated: 05/22/24 1201 Culture No growth at day 5 Vitals: Visit Vitals BP 107/68 Pulse 95 Temp 37.9 ??C (100.2 ??F) (Bladder) Resp 18 [place] Coma Scale Score: 15 [place] Scale Score: 23 Oxygen Therapy: None (Room air) Skin Integrity: Bruising Edema: Generalized Wt Readings from Last 3 Encounters: 05/22/24 58.6 kg (129 lb 3 oz) 06/28/23 59 kg (130 lb) 04/26/23 62.6 kg (138 lb) Current Diet Order: Dietary Orders (From admission, onward) Start Ordered 05/18/24 171 NPO diet Diet effective now 05/18/24 1717 [...] Weight: 61.1 kg (134 lb 12.8 oz) [place] body weight: 47.8 kg (105 lb 4.8 oz) Adjusted ideal body weight: 52.8 kg (116 lb 5.7 oz) (126.25%) of IBW Body mass index is 25.13 kg/m??. Adjusted wt: 50.9 kg (if over 125% of IBW) CENTRAL IV Access: PICC (05/18/24) Estimated Nutritional Needs: HBE: 1153 Stress Factor: 1.2-1.4 Total Calories/day: 3823-7562 Protein (amino acids): 1.3-1.6 grams/kg Protein (Amino [...] and depression COPD (chronic obstructive pulmonary disease) ([facility]) CAD, multiple vessel NSTEMI (non-ST elevated myocardial infarction) ([facility]) GERD (gastroesophageal reflux disease) Leukocytosis Hyperlipidemia THOM (obstructive sleep apnea) S/P CABG x 4 Hypertension Hyperkalemia Cardiac volume overload Hypoglycemia Nausea with vomiting Acute blood loss anemia (ABLA) Gastric perforation ([facility]) On total parenteral nutrition (TPN) [2] Past Medical History: Diagnosis Date Anxiety COPD (chronic obstructive pulmonary disease) ([facility]) 05/01/2024 Continue Duo nebs q6 SPO2 goal >88% Depression GERD (gastroesophageal reflux disease) 05/01/2024 Continue Protonix 40 mg daily On mechanically assisted ventilation ([facility]) 05/06/2024 Arrived to ICU intubated 05/07 extubated to 4LNC 05/08 resolved Tobacco use 05/01/2024 Drug Safety Associate for smoking 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 Complicates all [...] Surgical ICU Daily Progress Note 05/22/24 Rere Hunter HPI 53F with history of [...] Drain (mL) 05/20/24 07 - 05/20/24 1859 05/20/24 190 - 05/21/24 0659 05/21/24 07 - 05/21/24 [...] main artery stenosis Started on heparin drip GLUER AND SLICER HAND, continue CT Surgery consulted CABG work-up pending [...] mg q6 COPD (chronic obstructive pulmonary disease) ([facility]) Yes Overview Addendum 05/12/2024 12:27 PM by Christi Sherman ACCOUNTS RECEIVABLE SPECIALIST 05/07 Duo nebs q6 SPO2 goal >88% On 4LNC 05/08 on 2LNC 05/09 on 2LNC +40 lasix 05/12 ongoing 3L NSTEMI (non-ST elevated myocardial infarction) ([facility]) Yes Overview Addendum 05/22/2024 11:00 AM by Jose Aburto MD Diagnosed at OSH with elevated troponins of 0.05 to 0.23 to 0.16 Started on heparin drip GLUER AND SLICER HAND, 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 Repeat troponins pending 05/07 [...] Anterior;Left Forearm 05/12/24 0030 Forearm 10 NG/OG [place] Sump 14 Fr Right nostril 05/11/24 2300 Right nostril 10 Urethral Catheter Temperature probe 05/17/24 1430 -- 4 GCS: [place] Coma Scale Score: 15 Review of Systems [...] Yes Overview Addendum 05/12/2024 12:[address], Christi B, ACCOUNTS RECEIVABLE SPECIALIST Patient presented to OSH on 05/01/24 c/o chest pain Loaded with ASA & Plavix, continue LHC on 05/01/24 showed critical distal left main artery stenosis Started on heparin drip GLUER AND SLICER HAND, continue CT Surgery consulted CABG work-up pending [...] mg q6 COPD (chronic obstructive pulmonary disease) ([facility]) Yes Overview Addendum 05/12/2024 12:27 PM by Christi Sherman APRN 05/07 Duo nebs q6 SPO2 goal >88% On 4LNC 05/08 on 2LNC 05/09 on 2LNC +40 lasix 05/12 ongoing 3L NSTEMI (non-ST elevated myocardial infarction) ([facility]) Yes Overview Addendum 05/22/2024 11:00 AM by Jose Aburto MD Diagnosed at OSH with elevated troponins of 0.05 to 0.23 to 0.16 Started on heparin drip GLUER AND SLICER HAND, 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 Repeat troponins pending 05/07 [...] and depression COPD (chronic obstructive pulmonary disease) ([facility]/HCC) NSTEMI (non-ST elevated myocardial infarction) ([facility]) GERD (gastroesophageal reflux disease) Leukocytosis Hyperlipidemia THOM [...] Value Units Date/Time Blood Culture (Aerobic/Anaerobet Set) [[id number]] Collected: 05/17/24 1116 Order Status: Completed Specimen: Blood from Wrist, Right Updated: 05/21/24 1201 Culture No growth at day 4 Vitals: Visit Vitals BP 122/69 Pulse 85 Temp 37.5 ??C (99.5 ??F) (Bladder) Resp 21 [place] Coma Scale Score: 15 [place] Scale Score: [...] Weight: 61.1 kg (134 lb 12.8 oz) [place] body weight: 47.8 kg (105 lb 4.8 oz) Adjusted ideal body weight: 52.8 kg (116 lb 5.7 oz) (126.25%) of IBW Body mass index is 25.13 kg/m??. Adjusted wt: 50.9 kg (if over 125% of IBW) CENTRAL IV Access: PICC (05/18/24) Estimated Nutritional Needs: HBE: 1153 Stress Factor: 1.2-1.4 Total Calories/day: 1851-6346 Protein (amino acids): 1.3-1.6 grams/kg Protein (Amino [...] and depression COPD (chronic obstructive pulmonary disease) ([facility]) CAD, multiple vessel NSTEMI (non-ST elevated myocardial infarction) ([facility]) GERD (gastroesophageal reflux disease) Leukocytosis Hyperlipidemia THOM (obstructive sleep apnea) S/P CABG x 4 Hypertension Hyperkalemia Cardiac volume overload Hypoglycemia Nausea with vomiting Acute blood loss anemia (ABLA) Gastric perforation ([facility]) On total parenteral nutrition (TPN) [2] Past Medical History: Diagnosis Date Anxiety COPD (chronic obstructive pulmonary disease) (CMS/HCC) 05/01/2024 Continue Duo nebs q6 SPO2 goal >88% Depression GERD (gastroesophageal reflux disease) 05/01/2024 Continue Protonix 40 mg daily On mechanically assisted ventilation (CMS/HCC) 05/06/2024 Arrived to ICU intubated 05/07 extubated to [facility] 05/08 resolved Tobacco use 05/01/2024 Drug Safety Associate for smoking 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 Complicates all [...] Note Rere Hunter 53 y.o. female CSN: [id number] Room/Bed 216/216A Nutrition evaluation type: follow-up Reason [...] (Calculated): 25.46 Weight Evaluation: Overweight (BMI 25-29.9) [place] Body Weight (kg): 47.7 Percent [place] Body Weight: 126 Adjusted Body Weight (kg): 50.9 Estimated Needs: Kcal/ K-30 Kcal Provided: 5117-4293 Kcal Needs Based On: Adjusted weight Gm [...] Provided: Will monitor Pertinent home medications: reviewed [place] needs: Nutrition Focused Physical Exam: Physical exam [...] Date Anxiety COPD (chronic obstructive pulmonary disease) ([facility]) 05/01/2024 Continue Duo nebs q6 SPO2 goal >88% Depression GERD (gastroesophageal reflux disease) 05/01/2024 Continue Protonix 40 mg daily On mechanically assisted ventilation ([facility]) 05/06/2024 Arrived to ICU intubated 05/07 extubated to 4LNC 05/08 resolved Tobacco use 05/01/2024 Drug Safety Associate for smoking 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 Complicates all [...] Edited by: Iman Massey MD at 05/21/2024 5680 Relevant review of systems was obtained as [...] 05/12/2024 12:26 PM by Christi Sherman, ARASH Patient presented to OSH on 05/01/24 c/o chest pain Loaded with ASA & Plavix, continue LHC on 05/01/24 showed critical distal left main artery stenosis Started on heparin drip GLUER AND SLICER HAND, continue CT Surgery consulted CABG work-up pending [...] mg q6 COPD (chronic obstructive pulmonary disease) ([facility]/HCC) Yes Overview Addendum 05/12/2024 12:27 PM by Christi Sherman APRN 05/07 Duo nebs q6 SPO2 goal >88% On 4LNC 05/08 on 2LNC 05/09 on 2LNC +40 lasix 05/12 ongoing 3L NSTEMI (non-ST elevated myocardial infarction) ([facility]) Yes Overview Addendum 05/11/2024 10:54 AM by Miguel Downey MD Diagnosed at OSH with elevated troponins of 0.05 to 0.23 to 0.16 Started on heparin drip GLUER AND SLICER HAND, 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 Repeat troponins pending 05/07 [...] Note Rere Hunter 53 y.o. female CSN: [id number] Admission: 05/01/2024 11:01 PM Primary Problem: CAD, [...] Anterior;Right;Upper Arm 05/18/24 0400 Arm 3 NG/OG [place] Sump 14 Fr Right nostril 05/11/24 2300 Right nostril 9 Urethral Catheter Temperature probe 05/17/24 1430 -- 3 Arterial Line 05/17/24 Right Radial 05/17/24 1400 Radial 3 GCS: [place] Coma Scale Score: 15 Review [...] main artery stenosis Started on heparin drip GLUER AND SLICER HAND, continue CT Surgery consulted CABG work-up pending [...] mg q6 COPD (chronic obstructive pulmonary disease) ([facility]) Yes Overview Addendum 05/12/2024 12:27 PM by Christi Sherman APRN 05/07 Duo nebs q6 SPO2 goal >88% On 4LNC 05/08 on 2LNC 05/09 on 2LNC +40 lasix 05/12 ongoing 3L NSTEMI (non-ST elevated myocardial infarction) (CMS/HCC) Yes Overview Addendum 05/11/2024 10:54 AM by Miguel Downey MD Diagnosed at OSH with elevated troponins of 0.05 to 0.23 to 0.16 Started on heparin drip GLUER AND SLICER HAND, 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 Repeat troponins pending 05/07 [...] of Anxiety, COPD (chronic obstructive pulmonary disease) ([facility]) (05/01/2024), Depression, GERD (gastroesophageal reflux disease) (05/01/2024), On mechanically assisted ventilation ([facility]) (05/06/2024), Tobacco use (05/01/2024), and Tremor (05/01/2024). [...] Care Family/Caregiver Present: No Family/Caregiver: Adult Son Water Purifier: Not Applicable Presentation Oxygen Therapy: Supplemental oxygen [...] admission Level of Mobility: Ambulatory- community Mobility [place]: Independent gait without device (pt is the [...] Mobility Bed Mobility Exam: Rolling/Turning Level of [place]: Moderate assist (50% patient effort) Physical/Nonphysical Assist: Verbal Cues, Nonverbal cues (demo/gestures), Additional assist utilized for safety, Moderate cues Bed Mobility Exam: Scooting/Bridging Level of [place]: Contact guard (Scoot to edge of bed) Physical/Nonphysical Assist: Additional assist utilized for safety, Verbal Cues, Set-up required Bed Mobility Exam: Supine to Sit Level of [place]: Moderate assist (50% patient's effort) Physical/Nonphysical Assist: Verbal Cues, Nonverbal cues (demo/gestures), Moderate cues, HOB elevated Transfers Transfer Exam: Sit to stand Level of [place]: Contact guard Physical/Nonphysical Assist: Verbal Cues, Moderate cues, 1 person + 1 person to manage equipment Assistive Device: Hand held assist Transfer Exam: Stand to Sit Level of [place]: Contact guard Physical/Nonphysical Assist: Verbal Cues, Set-up required Assistive Device: Hand held assist Transfer Exam: Bed to Chair/Chair to Bed Level of [place]: Minimum assist (75% patient's effort) Physical/Nonphysical Assist: [...] sessions. Pt agreeable to HEP. Standardized Assessments [facility] 6-Clicks Mobility Assessment Difficulty patient has turning [...] 3-5 steps with a railing?: A lot [facility] 6-Clicks Mobility Assessment Total : 16 Assessment [...] of Anxiety, COPD (chronic obstructive pulmonary disease) ([facility]) (05/01/2024), Depression, GERD (gastroesophageal reflux disease) (05/01/2024), On mechanically assisted ventilation ([facility]) (05/06/2024), Tobacco use (05/01/2024), and Tremor (05/01/2024). [...] 1 L/min Lines and Tubes: Telemetry NG/OG Osseo Sump 14 Fr Right nostril (Active) Urethral [...] admission Level of Mobility: Ambulatory- community Mobility [place]: Independent gait without device (pt is the [...] Mobility Bed Mobility Exam: Scooting/Bridging Level of [place]: Contact guard (Scoot to edge of bed) Physical/Nonphysical Assist: Additional assist utilized for safety, Verbal Cues, Set-up required Bed Mobility Exam: Supine to Sit Level of [place]: Moderate assist (50% patient's effort) Physical/Nonphysical Assist: Verbal Cues, Nonverbal cues (demo/gestures), Moderate cues, HOB elevated Transfers Transfer Exam: Sit to stand Level of [place]: Contact guard Physical/Nonphysical Assist: Verbal Cues, Moderate cues, 1 person + 1 person to manage equipment Assistive Device: Hand held assist Transfer Exam: Stand to Sit Level of [place]: Contact guard Physical/Nonphysical Assist: Verbal Cues, Set-up required Assistive Device: Hand held assist Transfer Exam: Bed to Chair/Chair to Bed Level of Mack[place]: Minimum assist (75% patient's effort) Physical/Nonphysical Assist: Verbal Cues, Moderate cues, Additional assist utilized for safety, Nonverbal cues (demo/gestures) Type of Transfer: Sidesteps Assistive Device: Hand held assist Toilet Transfer Level of [place]: Minimum assist (75% patient's effort) Physical/Nonphysical Assist: [...] bed to recliner with min A via PUBLIC ADMINISTRATION PROFESSOR. Pt required increased time on BSC and supervision for safety. Pt required min A to stand from BSC and total A for posterior hygiene due to impaired dynamic balance requiring UE support to maintain balance. Pt required min A via PUBLIC ADMINISTRATION PROFESSOR to take side steps to recliner. Pt [...] maximize muscle gain with exercises. Access Code: [email or web address] URL: [email or web address] Date: 05/21/2024Prepared by: Bryson Exercises - Seated Punches - 1 x daily - 7 x weekly - 3 sets - 10 reps - Seated Shoulder Horizontal Abduction and Adduction - 1 x daily - 7 x weekly - 3 sets - 10 reps - SeatedShoulder Flexion - 1 x daily - 7 x weekly - 3 sets - 10 reps - Cervical AROM Flexion and Rotation -1 x daily - 7 x weekly - 3 sets - 10 reps - Standing Cervical Rotation AROM with Overpressure - 1 xdaily - 7 x weekly - 3 sets - 10 reps - Seated Biceps Curl - 1 x daily - 7 x weekly - 3 sets - 10 reps - Seated Scapular Retraction - 1 x daily - 7 x weekly - 3 sets - 10 reps Standardized Assessments [facility] 6-Click Daily Activities Help from Other: Don/Doff Regular Lower Body Clothings: A lot Help From Other: Bathing: A lot Help From Other: Toileting: A lot Help From Other: Don/Doff Upper Body Clothings: Little Help From Other: Grooming: Little Help From Other: Eating Meals: Total (NPO on TPN) [facility] 6 Click - Daily Activities Score: 13 Assessment In addition to OT reassessment, pt participated in OT session with a focus on ADL retraining and functional endurance. Pt tolerated session with fair(-) energy for task becoming fatigued quickly withC transfer. Pt is most limited by endurance [...] days Lab Units 05/21/24 0556 05/20/24 2348 05/20/24 1835 05/20/24 0215 05/19/24 1832 05/19/24 1142 05/19/24 [...] Value Units Date/Time Blood Culture (Aerobic/Anaerobet Set) [[id number]] Collected: 05/17/24 1116 Order Status: Completed Specimen: Blood from Wrist, Right Updated: 05/20/24 1201 Culture No growth at day 3 Comprehensive GI Panel by PCR [[id number]] (Normal) Collected: 05/18/24 2347 Order Status: Completed [...] ??C (98.8 ??F) (Bladder) Resp (!) 29 [place] Coma Scale Score: 15 [place] Scale Score: [...] Weight: 61.1 kg (134 lb 12.8 oz) [place] body weight: 47.8 kg (105 lb 4.8 oz) Adjusted ideal body weight: 52.8 kg (116 lb 5.7 oz) (126.25%) of IBW Body mass index is 25.13 kg/m??. Adjusted wt: 50.9 kg (if over 125% of IBW) CENTRAL IV Access: PICC (05/18/24) Estimated Nutritional Needs: HBE: 1153 Stress Factor: 1.2-1.4 Total Calories/day: 6313-2814 Protein (amino acids): 1.3-1.6 grams/kg Protein (Amino [...] and depression COPD (chronic obstructive pulmonary disease) ([facility]) CAD, multiple vessel NSTEMI (non-ST elevated myocardial infarction) ([facility]) GERD (gastroesophageal reflux disease) Leukocytosis Hyperlipidemia THOM (obstructive sleep apnea) S/P CABG x 4 Hypertension Hyperkalemia Cardiac volume overload Hypoglycemia Nausea with vomiting Acute blood loss anemia (ABLA) Gastric perforation ([facility]) [2] Past Medical History: Diagnosis Date Anxiety COPD (chronic obstructive pulmonary disease) ([facility]) 05/01/2024 Continue Duo nebs q6 SPO2 goal >88% Depression GERD (gastroesophageal reflux disease) 05/01/2024 Continue Protonix 40 mg daily On mechanically assisted ventilation ([facility]) 05/06/2024 Arrived to ICU intubated 05/07 extubated to [facility] 05/08 resolved Tobacco use 05/01/2024 Drug Safety Associate for smoking 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 Complicates all [...] disease) (CMS/HCC) NSTEMI (non-ST elevated myocardial infarction) (CMS/[facility]) GERD (gastroesophageal reflux disease) Leukocytosis Hyperlipidemia THOM [...] Anterior;Right;Upper Arm 05/18/24 0400 Arm 2 NG/OG Osseo Sump 14 Fr Right nostril 05/11/24 2300 Right nostril 8 Urethral Catheter Temperature probe 05/17/24 1430 -- 2 Arterial Line 05/17/24 Right Radial 05/17/24 1400 Radial 2 GCS: [place] Coma Scale Score: 15 Review of Systems [...] main artery stenosis Started on heparin drip GLUER AND SLICER HAND, continue CT Surgery consulted CABG work-up pending [...] mg q6 COPD (chronic obstructive pulmonary disease) ([facility]) Yes Overview Addendum 05/12/2024 12:27 PM by Christi Sherman APRN 05/07 Duo nebs q6 SPO2 goal >88% On 4LNC 05/08 on 2LNC 05/09 on 2LNC +40 lasix 05/12 ongoing 3L NSTEMI (non-ST elevated myocardial infarction) ([facility]) Yes Overview Addendum 05/11/2024 10:54 AM by Miguel Downey MD Diagnosed at OSH with elevated troponins of 0.05 to 0.23 to 0.16 Started on heparin drip GLUER AND SLICER HAND, 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 Repeat troponins pending 05/07 [...] La MD * Pharmacy note - Iman Nice PharmD - 05/20/2024 1:09 PM EDT Pharmacist [...] Value Units Date/Time Blood Culture (Aerobic/Anaerobet Set) [[id number]] Collected: 05/13/24 0947 Order Status: Completed Specimen: [...] Weight: 61.1 kg (134 lb 12.8 oz) [place] body weight: 47.8 kg (105 lb 4.8 oz) Adjusted ideal body weight: 52.8 kg (116 lb 5.7 oz) (126.25%) of IBW Body mass index is 25.13 kg/m??. Adjusted wt: 50.9 kg (if over 125% of IBW) CENTRAL IV Access: PICC (05/18/24) Estimated Nutritional Needs: HBE: 1153 Stress Factor: 1.2-1.4 Total Calories/day: 9593-8672 Protein (amino acids): 1.3-1.6 grams/kg Protein (Amino [...] by Drain (mL) 05/18/24 07 - 05/18/24 18505/18/241899 - 05/19/24 0659 05/19/24 07 - 05/19/24 18505/19/24 190 - 05/20/24 0659 [...] main artery stenosis Started on heparin drip GLUER AND SLICER HAND, continue CT Surgery consulted CABG work-up pending [...] Yes Overview Addendum 05/12/2024 12:27 PM by hCristi Sherman APRN 05/07 Duo nebs q6 SPO2 goal >88% On 4LNC 05/08 on 2LNC 05/09 on 2LNC +40 lasix 05/12 ongoing 3L NSTEMI (non-ST elevated myocardial infarction) ([facility]) Yes Overview Addendum 05/11/2024 10:54 AM by Miguel Downey MD Diagnosed at OSH with elevated troponins of 0.05 to 0.23 to 0.16 Started on heparin drip GLUER AND SLICER HAND, 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 Repeat troponins pending 05/07 [...] Addendum 05/13/2024 12:40 PM by Christi Sherman ACCOUNTS RECEIVABLE SPECIALIST - continue to monitor, checking LFTs On [...] disease) (CMS/HCC) NSTEMI (non-ST elevated myocardial infarction) (CMS/[facility]) GERD (gastroesophageal reflux disease) Leukocytosis Hyperlipidemia THOM [...] as documented. * Consults - Fito Saeed PA - 05/20/2024 8:42 AM EDTAssociated Order(s): Inpatient [...] depression, and tobacco use who presented to [facility] on 05/01/24 with chest pain. Loaded with ASA and Plavix. LHC at OSH performed showed critical distal left main artery stenosis. Also diagnosed with NSTEMI at OSH with elevated troponins of 0.05 to 0.23 to 0.16. Placed on a heparin drip prior to arrival. Transferred to [facility] on 05/01/24 for CABG evaluation by CT [...] Date Anxiety COPD (chronic obstructive pulmonary disease) ([facility]) 05/01/2024 Continue Duo nebs q6 SPO2 goal >88% Depression GERD (gastroesophageal reflux disease) 05/01/2024 Continue Protonix 40 mg daily On mechanically assisted ventilation ([facility]) 05/06/2024 Arrived to ICU intubated 05/07 extubated to 4LNC 05/08 resolved Tobacco use 05/01/2024 Drug Safety Associate for smoking 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 Complicates all [...] is no recent study available for direct [id number] comparison. Assessment & Plan: Multivessel CAD s/p CABG Gastric fluid/gas collection - presented to [facility] on 05/01/24 with chest pain. Loaded with ASA and Plavix. - LHC at OSH performed showed critical distal left main artery stenosis. - Also diagnosed with NSTEMI at OSH with elevated troponins of 0.05 to 0.23 to 0.16. - Placed on a heparin drip prior to arrival. Transferred to [facility] on 05/01/24 for CABG evaluation by CT [...] 650 mg, Rectal, q6h PRN, Marybel Suarez, ACCOUNTS RECEIVABLE SPECIALIST, 650mg at 05/19/24 1415 Adult 2-in-1 TPN, [...] mg, 2.5 mg, Intravenous, q8h PRN, Jorge Lius La MD, 2.5 mg at 05/19/24 1326 [...] 3 mL, 3 mL, Nebulization, q6h PRN, Yousif, Trinity S, ACCOUNTS RECEIVABLE SPECIALIST, 3 mL at 05/17/24 1551 micafungin (Mycamine) 100 mg in sodium chloride 0.9 % 100 mL IVPB, 100 mg, Intravenous, q24h, Marybel Suarez, ACCOUNTS RECEIVABLE SPECIALIST, 100 mg at 05/20/24 0454 nicotine (Nicoderm [...] Jayson Estrada MD PGY-3 General Surgery Pager #[phone] * Progress Notes - Dieudonne Cramer MD [...] abdomen pelvis without contrast ordered for 6am 05/20. Bowel movement this morning. Daily suppository timed [...] Anterior;Right;Upper Arm 05/18/24 0400 Arm 1 NG/OG Osseo Sump 14 Fr Right nostril 05/11/24 2300 Right nostril 7 Urethral Catheter Temperature probe 05/17/24 1430 -- 2 Arterial Line 05/17/24 Right Radial 05/17/24 1400 Radial 2 GCS: [place] Coma Scale Score: 15 Review [...] main artery stenosis Started on heparin drip GLUER AND SLICER HAND, continue CT Surgery consulted CABG work-up pending [...] mg q6 COPD (chronic obstructive pulmonary disease) ([facility]) Yes Overview Addendum 05/12/2024 12:27 PM by Christi Sherman APRN 05/07 Duo nebs q6 SPO2 goal >88% On 4LNC 05/08 on 2LNC 05/09 on 2LNC +40 lasix 05/12 ongoing 3L NSTEMI (non-ST elevated myocardial infarction) ([facility]) Yes Overview Addendum 05/11/2024 10:54 AM by Miguel Downey MD Diagnosed at OSH with elevated troponins of 0.05 to 0.23 to 0.16 Started on heparin drip GLUER AND SLICER HAND, 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 Repeat troponins pending 05/07 [...] Value Units Date/Time Blood Culture (Aerobic/Anaerobet Set) [[id number]] Collected: 05/13/24 0947 Order Status: Completed Specimen: [...] Weight: 61.1 kg (134 lb 12.8 oz) [place] body weight: 47.8 kg (105 lb 4.8 oz) Adjusted ideal body weight: 52.8 kg (116 lb 5.7 oz) (126.25%) of IBW Body mass index is 25.13 kg/m??. Adjusted wt: 50.9 kg (if over 125% of IBW) CENTRAL IV Access: PICC (05/18/24) Estimated Nutritional Needs: HBE: 1153 Stress Factor: 1.2-1.4 Total Calories/day: 4308-8931 Protein (amino acids): 1.3-1.6 grams/kg Protein (Amino [...] TPN likely 05/19. Edited by: Marybel Suarez, ACCOUNTS RECEIVABLE SPECIALIST at 05/19/2024 0517 Lines/Drains/Tubes: Patient Lines/Drains/Airways Status Active Active LDAs Name Placement date Placement time Site Days PICC Double Lumen 05/19/24 Left Basilic vein 05/19/24 0050 Basilic vein less than 1 Peripheral IV 05/12/24 Anterior;Left Forearm 05/12/24 0030 Forearm 7 Peripheral IV 05/18/24 Anterior;Right;Upper Arm 05/18/24 0400 Arm 1 NG/OG Osseo Sump 14 Fr Right nostril 05/11/24 2300 Right nostril 7 Urethral Catheter Temperature probe 05/17/24 1430 -- 1 Arterial Line 05/17/24 Right Radial 05/17/24 1400 Radial 1 GCS: [place] Coma Scale Score: 14 Review of Systems [...] main artery stenosis Started on heparin drip GLUER AND SLICER HAND, continue CT Surgery consulted CABG work-up pending [...] mg q6 COPD (chronic obstructive pulmonary disease) ([facility]/HCC) Yes Overview Addendum 05/12/2024 12:27 PM by Christi Sherman APRN 05/07 Duo nebs q6 SPO2 goal >88% On 4LNC 05/08 on 2LNC 05/09 on 2LNC +40 lasix 05/12 ongoing 3L NSTEMI (non-ST elevated myocardial infarction) ([facility]/HCC) Yes Overview Addendum 05/11/2024 10:54 AM by Miguel Downey MD Diagnosed at OSH with elevated troponins of 0.05 to 0.23 to 0.16 Started on heparin drip GLUER AND SLICER HAND, 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 Repeat troponins pending 05/07 [...] No Overview Addendum 05/13/2024 12:[address], Christi B, ACCOUNTS RECEIVABLE SPECIALIST - continue to monitor, checking LFTs On [...] Holt RN Authorized by: Maite Austin MD [place] Protocol: Verbal consent obtained?: Yes Written consent obtained?: Yes Risks and benefits: Risks, benefits and alternatives were discussed Consent given by: Patient and power of film technician (Written Consent obtained by madalyn VAT/PICC RN [...] Left Location (Adult): Basilic vein (Largest vein, [id number] ratio 27%) Site selection rationale: RUE PIV and right radial arterial line. Patient position: Supine Catheter Lot #: [id number] Catheter microbiology technologist: Smallknot Power PICC Provena Catheter placed: Double lumen [...] placed on end of each lumen hub. [place] limb precautionarmband placed on left wrist for [...] place PICC, TPN likely 05/19. Edited by: Sidney Jackson MD at 05/18/2024 1427 Lines/Drains/Tubes: Patient Lines/Drains/Airways Status Active Active LDAs Name Placement date Placement time Site Days Peripheral IV 05/12/24 Anterior;Left Forearm 05/12/24 0030 Forearm 6 Peripheral IV 05/18/24 Anterior;Right;Upper Arm 05/18/24 0400 Arm less than 1 NG/OG [place] Sump 14 Fr Right nostril 05/11/24 2300 Right nostril 6 Urethral Catheter Temperature probe 05/17/24 1430 -- less than 1 Arterial Line 05/17/24 Right Radial 05/17/24 1400 Radial 1 GCS: [place] Coma Scale Score: 13 Review of Systems [...] main artery stenosis Started on heparin drip GLUER AND SLICER HAND, continue CT Surgery consulted CABG work-up pending [...] 0.23 to 0.16 Started on heparin drip GLUER AND SLICER HAND, 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 Repeat troponins pending 05/07 [...] Overview Addendum 05/14/2024 1:59 PM by Cydney uLu MD - post Reglan/ Simethicone for gastric [...] EDT Vat spoke to Sidney Jackson MD. MD states team wishes to proceed with picc placement with blood cxs - 24 hours for TPN as soon as possible. Vat will proceed as time permits. MD aware of consent issues as well. * Consults - Cheri Mckay RD - 05/18/2024 1:37 PM EDT Adult Nutrition Evaluation Note Rere Hunter 53 y.o. female CSN: [id number] Room/Bed 216/216A Nutrition evaluation type: follow-up Reason [...] (Calculated): 25.13 Weight Evaluation: Overweight (BMI 25-29.9) [place] Body Weight (kg): 47.7 Percent [place] Body Weight: 126 Adjusted Body Weight (kg): 50.9 Estimated Needs: Metabolic Cart Study Results: Current Nutrition Intake: Diet Order: NPO Diet Texture: (-) Adult Carbohydrate Restriction: (-) Fat Restriction: (-) Percent Meals Eaten (%): (-) Diet Experience and Nutrition History: Diet Education Provided: Will monitor Pertinent home medications: reviewed [place] needs: Nutrition Focused Physical Exam: Physical exam [...] Date Anxiety COPD (chronic obstructive pulmonary disease) ([facility]) 05/01/2024 Continue Duo nebs q6 SPO2 goal >88% Depression GERD (gastroesophageal reflux disease) 05/01/2024 Continue Protonix 40 mg daily On mechanically assisted ventilation ([facility]) 05/06/2024 Arrived to ICU intubated 05/07 extubated to 4LNC 05/08 resolved Tobacco use 05/01/2024 Drug Safety Associate for smoking 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 Complicates all [...] documented. * Significant Event - Fito Saeed PA - 05/18/2024 9:03 AM EDTAssociated Order(s): Inpatient [...] Rere Hunter Date of : 1970 Room: 216/216A Referring provider: Maite Austin MD Reason for consultation: gastric perforation Subjective: History of present illness: Ms. Rere Hunter is a 53 y.o. year old female admitted on 05/01/2024 for chief complaint of CAD, multiple vessel [I25.10]. The inpatient gastroenterology, hepatology and nutrition team was askedto see her in consultation for gastric perforation. She has a past medical history significant forCAD s/p 4v CABG on 05/06/24, HTN, COPD, [...] Kinsey MD Gastroenterology and Hepatology PGY-5 Secure chat/[phone] [1] Past Medical History: Diagnosis Date Anxiety COPD (chronic obstructive pulmonary disease) (CMS/HCC) 05/01/2024 Continue Duo nebs q6 SPO2 goal >88% Depression GERD (gastroesophageal reflux disease) 05/01/2024 Continue Protonix 40 mg daily On mechanically assisted ventilation ([facility]/HCC) 05/06/2024 Arrived to ICU intubated 05/07 extubated to [facility] 05/08 resolved Tobacco use 05/01/2024 Drug Safety Associate for smoking 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 Complicates all [...] 81 mg, 81 mg, Rectal, Daily, Marybel Suarez APRN benzocaine-menthol (Chloraseptic) 6-10 MG lozenge 1 lozenge, 1 lozenge, Mouth/Throat, q4h PRN, Dave Baird P, DO, 1 lozenge at 05/17/24 1624 dextrose [...] mg, 1 mg, Intramuscular, q15 min PRN, Daniela, Marybel D, ACCOUNTS RECEIVABLE SPECIALIST heparin (porcine) injection 5,000 Units, 5,000 Units, Subcutaneous, q8h, Sundeep Newsome MD, 5,000 Units at 05/18/24 0343 ipratropium-albuterol (Duo-Neb) 0.5-2.5 mg/3 mL nebulizer solution 3 mL, 3 mL, Nebulization, q6h PRN, Trinity Yousif APRN, 3 mL at 05/17/24 1551 micafungin (Mycamine) 100 mg in sodium chloride 0.9 % 100 mL IVPB, 100 mg, Intravenous, q24h, Marybel Suarez, ACCOUNTS RECEIVABLE SPECIALIST, 100 mg at 05/18/24 0643 nicotine (Nicoderm CQ) 14 MG/24HR patch 1 patch, 1 patch, Transdermal, Daily PRN, Arpan Hull MD nicotine polacrilex (Commit) lozenge 2 mg, 2 mg, Mouth/Throat, q2h PRN, Arban Hull MD nystatin (Mycostatin) [id number] UNIT/ML suspension 400,000 Units, 4 mL, Swish & Swallow, 4x daily,Cydney Luu MD, 400,000 Units at 05/17/24 2100 pantoprazole (Protonix) injection 40 mg, 40 mg, Intravenous, Daily, Trinity Yousif APRN, 40 mg at 05/17/24 1031 phenol (Chloraseptic) [...] Surgical ICU Daily Progress Note 05/18/24 Rere Nancy Hunter HPI 53F with history of HTN, [...] - 05/17/24 0659 05/17/24 07 - 05/17/24 18505/17/24 190 - 05/18/24 0659 05/18/24 07 - [...] main artery stenosis Started on heparin drip GLUER AND SLICER HAND, continue CT Surgery consulted CABG work-up pending [...] mg q6 COPD (chronic obstructive pulmonary disease) ([facility]/HCC) Yes Overview Addendum 05/12/2024 12:27 PM by Christi Sherman APRN 05/07 Duo nebs q6 SPO2 goal >88% On 4LNC 05/08 on 2LNC 05/09 on 2LNC +40 lasix 05/12 ongoing 3L NSTEMI (non-ST elevated myocardial infarction) (CMS/HCC) Yes Overview Addendum 05/11/2024 10:54 AM by Miguel Downey MD Diagnosed at OSH with elevated troponins of 0.05 to 0.23 to 0.16 Started on heparin drip GLUER AND SLICER HAND, 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 Repeat troponins pending 05/07 [...] plan as documented. Tere Snow MD, FACS bell person Trauma Acute Care Surgery * Significant Event - Vicky Arciniega MD - 05/18/2024 4:50 AM EDT Paged by primary team to review CTAP. Imaging is concerning for focal gastric perforation with [id number] abscess. Patient has been febrile for several [...] Vicky Arciniega MD General Surgery PGY2 Pager: [phone] * H&P - Dieudonne Cramer MD - [...] Anterior;Left;Proximal Forearm 05/12/24 0840 Forearm 5 NG/OG Osseo Sump 14 Fr Right nostril 05/11/24 2300 [...] Date Anxiety COPD (chronic obstructive pulmonary disease) ([facility]) 05/01/2024 Depression GERD (gastroesophageal reflux disease) 05/01/2024 On mechanically assisted ventilation ([facility]) 05/06/2024 Tobacco use 05/01/2024 Tremor 05/01/2024 Past [...] Reviewed and otherwise non-contributory. Allergies: Allergies[4] GCS: [place] Coma Scale Score: 14 Review of Systems [...] main artery stenosis Started on heparin drip GLUER AND SLICER HAND, continue CT Surgery consulted CABG work-up pending [...] mg q6 COPD (chronic obstructive pulmonary disease) ([facility]/HCC) Yes Overview Addendum 05/12/2024 12:27 PM by Christi Sherman APRN 05/07 Duo nebs q6 SPO2 goal >88% On 4LNC 05/08 on 2LNC 05/09 on 2LNC +40 lasix 05/12 ongoing 3L NSTEMI (non-ST elevated myocardial infarction) (CMS/HCC) Yes Overview Addendum 05/11/2024 10:54 AM by Miguel Downey MD Diagnosed at OSH with elevated troponins of 0.05 to 0.23 to 0.16 Started on heparin drip GLUER AND SLICER HAND, 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 Repeat troponins pending 05/07 [...] 0659 05/16/24 07 - 05/16/24 1859 05/16/24 190 - 05/17/24 0659 05/17/24 07 - [...] main artery stenosis Started on heparin drip GLUER AND SLICER HAND, continue CT Surgery consulted CABG work-up pending [...] mg q6 COPD (chronic obstructive pulmonary disease) ([facility]) Yes Overview Addendum 05/12/2024 12:27 PM by Christi Sherman APRN 05/07 Duo nebs q6 SPO2 goal >88% On 4LNC 05/08 on 2LNC 05/09 on 2LNC +40 lasix 05/12 ongoing 3L NSTEMI (non-ST elevated myocardial infarction) ([facility]) Yes Overview Addendum 05/11/2024 10:54 AM by Miguel Downey MD Diagnosed at OSH with elevated troponins of 0.05 to 0.23 to 0.16 Started on heparin drip GLUER AND SLICER HAND, 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 Repeat troponins pending 05/07 [...] with the patient, her family and the [facility] faculty Tere Snow MD, FACS bell person Trauma Acute Care Surgery * Consults - Rhona Abrams RN - 05/17/2024 2:15 PM EDTAssociated Order(s): IP CONSULT TO ADULT VASCULAR ACCESS TEAM Dulce Alamo SENIOR ERP CONSULTANT reached out to [facility] due to pt transfer to ICU. SENIOR ERP CONSULTANT states to hold on piccline due to fever and blood cxs redrawn. VAT asked SENIOR ERP CONSULTANT to reorder when appropriate. * Clinician Note [...] which is disconnected and daughter Janeth, at [phone]. Left voicemail. Vat will continue to attempt to reach family for consent. Cally SENIOR ERP CONSULTANT aware, picc on hold pending consent. * [...] 05/12/24 1255 05/11/24 1402 ALT U/L 19 30 -- -- -- AST U/L 60* [...] Value Units Date/Time Blood Culture (Aerobic/Anaerobet Set) [[id number]] Collected: 05/13/24 0970 Order Status: Completed Specimen: Blood from AC, Right Updated: 05/16/24 1101 Culture No growth at day 3 Vitals: Visit Vitals BP 126/62 (BP Location: Right arm, Patient Position: Lying) Pulse 110 Temp 36.8 ??C (98.2 ??F) (Oral) Resp 23 Jaida Coma Scale Score: 14 Shaan Scale [...] Weight: 61.1 kg (134 lb 12.8 oz) Blakeslee body weight: 47.8 kg (105 lb 4.8 oz) Adjusted ideal body weight: 52.8 kg (116 lb 5.7 oz) (126.25%) of IBW Body mass index is 25.13 kg/m??. Adjusted wt: 50.9 kg (if over 125% of IBW) CENTRAL IV Access: Pending Estimated Nutritional Needs: HBE: 1153 Stress Factor: 1.2-1.4 Total Calories/day: 9029-7239 Protein (amino acids): 1.3-1.6 grams/kg Protein (Amino [...] the IV room. Thank you, Db Kline, Delphine Candidate 2024 Preceptor - Moni Méndez PharmD Cosigned by Moni Méndez PharmD at 05/17/2024 3:37 PM EDT Associated attestation - Moni Méndez PharmD - 05/17/2024 3:37 PM EDT I have reviewed the students assessment and plan and agree with the below statements * Progress Notes - Heather Ram - 05/17/2024 9:32 AM EDT Case Management Adult Progress Note Rere Hunter 53 y.o. female CSN: [id number] Admission: 05/01/2024 11:01 PM Primary Problem: CAD, [...] more detail. Pt has been referred to [facility]; liaison Prema following. No further SW [...] COPD, and tobacco abuse.She initially presented to [facility], ruled in for NSTEMI, and underwent [...] atorvastatin and beta-stacey - Imaging uploaded to [facility] system and reviewed with Dr. Chery - [...] Statin COPD (POA) - PFTs completed - Jazmin Anxiety (POA) Depression (POA) - Continue home [...] to ICU per Dr. Austin Cardiothoracic Surgery [phone] * Significant Event - Iman Massey MD [...] Note Rere Hunter 53 y.o. female CSN: [id number] Room/Bed 135/135A Nutrition evaluation type: follow-up Reason [...] (Room air) O2 Delivery Method: Nasal cannula [place] Coma Scale Score: 15 Shaan Scale Score: [...] (Calculated): 25.13 Weight Evaluation: Overweight (BMI 25-29.9) [place] Body Weight (kg): 47.7 Percent [place] Body Weight: 126 Adjusted Body Weight (kg): 50.9 Estimated Needs: Metabolic Cart Study Results: Current Nutrition Intake: Diet Order: NPO Diet Texture: (-) Adult Carbohydrate Restriction: (-) Fat Restriction: (-) Percent Meals Eaten (%): (-) Diet Experience and Nutrition History: Diet Education Provided: Will monitor Pertinent home medications: reviewed [place] needs: Nutrition Focused Physical Exam: Physical exam [...] Date Anxiety COPD (chronic obstructive pulmonary disease) ([facility]) 05/01/2024 Continue Duo nebs q6 SPO2 goal >88% Depression GERD (gastroesophageal reflux disease) 05/01/2024 Continue Protonix 40 mg daily On mechanically assisted ventilation ([facility]) 05/06/2024 Arrived to ICU intubated 05/07 extubated to 4LNC 05/08 resolved Tobacco use 05/01/2024 Drug Safety Associate for smoking 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 Complicates all [...] from last 7 days Lab Units 05/16/2431905/15/2411205/14/24 0335 WBC 10*3/uL 20.02* 28.49* 35.22* HEMOGLOBIN g/dL 8.8* 8.9* 7.2* HEMATOCRIT % 27.6* 26.5* 22.0* PLATELETS 10*3/uL 480* 402* 352 INR ??, PTT ??, Anti-Xa ?? Ca 7.4 (L) iCa ?? Mg 2.0, Phos ?? Lactate ?? Results from last 7 days Lab Units 05/16/2431905/15/2411205/14/24 03305/13/24 0554 SODIUM mmol/L 144 145 141 [...] cyanosis or clubbing. Pedal pulses palpable +2. H site CDI GI: distended. Rare bowel sounds SKIN: [place], warm, and dry. No rash, sores, or [...] Chloraseptic spray for throat pain Cardiothoracic Surgery [phone] * Significant Event - Tere Snow MD - 05/15/2024 10:00 PM EDT Pt feels better today. Having bowel function Abd: soft, no significant distention Ok for clamp trial SGE will follow for resuming of diet Tere Snow MD, FACS bell person Trauma Acute Care Surgery * Progress Notes - Heather Ram - 05/15/2024 12:47 PM EDT Case Management Adult Progress Note Rere Hunter 53 y.o. female CSN: [id number] Admission: 05/01/2024 11:01 PM Primary Problem: CAD, [...] Pt amenable to SW sending referral to [facility] and is agreeable to taking s dianna. SW sent referral to [facility], liaison Prema is following. No further SW concerns identified [...] ?? Natural and processed cheeses such as [place]i, blue, mozzarella, and Icelandic Meat and protein substitutes Special instructions: ?? [...] ?? Oat meal ?? Whole wheat ?? [place] ?? Pumpernickel ?? White ?? Raisin ?? Crackers prepared without butter, lard, coconut, or palm oil ?? Dry cereals that contain allowed fats ?? Rice and pasta prepared with allowed fats ?? Egg noodles (limit to ?? cup per day) ?? Malaysian ?? Citizen Of [place] ?? Estonian muffins ?? Pancakes, waffles, biscuits, and cornbread made with allowed ingredients ?? Flat bread ?? Bal crackers ?? Matzoh crackers ?? Whole grain or enriched cereals prepared with allowed oils ?? Wheat germ Avoid: ?? Egg or cheese bread ?? Butter rolls ?? Commercially prepared products: biscuits, muffins, sweet rolls, cornbread, pancakes and waffles,maltese toast, croissants ?? Noodles ?? Cheese crackers ?? Flavored crackers prepared with saturated fats ?? Any cereal prepared with saturated fat ?? [place] noodles ?? Rice and pasta prepared with eggs, cream, or high fat cheese Fruits Choose: ?? Any fresh, frozen, canned, or dried fruit or juice ?? Avocado Vegetables Choose: ?? Any fresh, frozen, or canned vegetables ?? Potatoes prepared with allowed fat ?? Olives (limit to 10 small or 5 large per day) Avoid: ?? Buttered, creamed, or fried vegetables ?? [id number]-h-[id number], commercially made ?? Vegetables prepared in a [...] sizes are listed below: ?? Nuts: The [place] [employer] Association recommends including 5 servings of [...] avocado oil, etc.: 1 tablespoon o The [place] Heart Association recommends limiting oils to 3 [...] ingredients ?? Sorbet ?? Ice milk ?? Keldron ?? Gum drops ?? Jelly beans ?? [...] saturated fats, cheese, and/or egg yolks ?? Vici chips ?? Potato chips and other snack [...] much from the food you eat. Use Pop.it to Help Build Your Meals The Car ClubsTracker can help you plan and track your meals and activity. You can look up individual foods to see or compare their nutritional value. You can get guidelines for what and how much you should eat. You can compare your food choices. And you can assess personal physical activities and see ways you can improve. Go to www.choosemyplate.gov/supertracker/. Eating Heart-Healthy Food: Using the DASH Plan [...] from the original note were not included. 11335 Recovery From Heart Surgery: The First Few [...] stop Last Reviewed Date: 2024 00:00:00 ?? 4966-7687 The Life[employer]. All rights reserved. This information is not intended as a substitute for professional medical care. Always follow your healthcare professional's instructions. * Can Alex - Brooklyn Duron RN - 05/15/2024 10:45 AM EDT Images from the original note were not included. 28501 Eating Heart-Healthy Foods Eating has a big [...] darion. Last Reviewed Date: 2022 00:00:00 ?? 1433-7504 The [employer]. All rights reserved. This information is not intended as a substitute for professional medical care. Always follow your healthcare professional's instructions. * Earlenedalila [facility] - Brooklyn Duron RN - 05/15/2024 10:45 [...] from the original note were not included. 34057 After Bypass Surgery: Getting Up and Out [...] do. Last Reviewed Date: 2024 00:00:00 ?? 8337-1618 The [employer]. All rights reserved. This information is not intended as a substitute for professional medical care. Always follow your healthcare professional's instructions. * Can [facility] - Brooklyn Duron RN - 05/15/2024 10:45 AM EDT Images from the original note were not included. 61592 After Bypass Surgery: Reaching, Bending, and Lifting [...] your shoulders and hips in line. ?? paralegal supervisor the object and hold it close [...] directions. Last Reviewed Date: 2024 00:00:00 ?? 2619-5959 The [employer]. All rights reserved. This information is not intended as a substitute for professional medical care. Always follow your healthcare professional's instructions. * Discharge Instr - Other Orders - Brooklyn Duron RN - 05/15/2024 10:37 AM EDT Please arrive 30 minutes early for your appointment with Dr. Austin Prior to your appointment, go to the radiology department on the 1st floor of the [facility] near [facility] for a chest x-ray. Then go to [...] your incisions. Do NOT lift, push or pin puller 5 pounds for six weeks. Do [...] or concerns, please contact??? Brooklyn Duron RN [phone] Tuesday through Tuesday 7am- 3:30pm [facility] [phone] after 3:30 pm, weekends and holidays - ask for the CT surgeon television camera operator. * Progress Notes - Pari Lindo PTA - 05/15/2024 9:18 AM EDT Physical Therapy Treatment Patient Name: Rere Hunter Today's Date: 05/15/2024 PT Discharge Recommendations: Acute rehab Equipment Recommended: Defer to facility Subjective The patient states, I am tired this morning. Participants in Care Family/Caregiver Present: No Water Purifier: Not Applicable Presentation Oxygen: None (Room air) Telemetry: Yes Lines and Tube: NG/OG [place] Sump 14 Fr Right nostril (Active) Peripheral [...] Transfer Exam: Sit to stand Level of Mackay: Contact guard Physical/Nonphysical Assist: Verbal Cues, Set-up required Assistive Device: Rollator Transfer Exam: Stand to Sit Level of [place]: Contact guard Physical/Nonphysical Assist: Verbal Cues, Set-up required Assistive Device: Rollator Toilet Transfer Level of Mack[place]: Minimum assist (75% patient's effort) Physical/Nonphysical Assist: [...] (Room air) Lines and Tubes: Telemetry NG/OG [place] Sump 14 Fr Right nostril (Active) Peripheral [...] Mobility Exam: Supine to Sit Level of Mack[place]: Moderate assist (50% patient's effort) Physical/Nonphysical Assist: Verbal Cues, Nonverbal cues (demo/gestures), Moderate cues, HOB elevated Transfers Transfer Exam: Sit to stand Level of Mack[place]: Contact guard Physical/Nonphysical Assist: Nonverbal cues (demo/gestures), Verbal Cues, Minimal cues Assistive Device: Rollator Transfer Exam: Stand to Sit Level of Mackay: Contact guard Physical/Nonphysical Assist: Nonverbal cues (demo/gestures), [...] 05/14/2024 2:04 PM EDT Procedures 05/14/24 Rere Hunter HPI Rere Hunter is a [...] Anterior;Left;Proximal Forearm 05/12/24 0840 Forearm 2 NG/OG Os[place] Sump 14 Fr Right nostril 05/11/24 2300 Right nostril 2 GCS: [place] Coma Scale Score: 15 Review of Systems [...] main artery stenosis Started on heparin drip GLUER AND SLICER HAND, continue CT Surgery consulted CABG work-up pending [...] mg q6 COPD (chronic obstructive pulmonary disease) ([facility]) Yes Overview Addendum 05/12/2024 12:27 PM by Christi Sherman APRN 05/07 Duo nebs q6 SPO2 goal >88% On 4LNC 05/08 on 2LNC 05/09 on 2LNC +40 lasix 05/12 ongoing 3L NSTEMI (non-ST elevated myocardial infarction) ([facility]) Yes Overview Addendum 05/11/2024 10:54 AM by Miguel Downey MD Diagnosed at OSH with elevated troponins of 0.05 to 0.23 to 0.16 Started on heparin drip GLUER AND SLICER HAND, 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 Repeat troponins pending 05/07 [...] Surgical ICU Daily Progress Note 05/14/24 Rere Hunter HPI 53F with history of [...] 1900 - 05/13/24 0659 05/13/24 0700 - 03/30/25 1859 05/13/24 1900 - 05/14/24 0659 05/14/24 [...] monitor bowel function Tere Snow MD, FACS bell person Trauma Acute Care Surgery * Progress Notes - Heather Ram - 05/14/2024 8:48 AM EDT Case Management Adult Progress Note Rere Hunter 53 y.o. female CSN: [id number] Admission: 05/01/2024 11:01 PM Primary Problem: CAD, [...] with DC planning and needs as appropriate. Heather Ram, AFRICAN STUDIES PROFESSOR * Progress Notes - Edson Reed MD [...] Ringer's, 75 mL/hr, Last Rate: 75 mL/hr (05/13/242132) Visit Vitals BP 131/75 Pulse (!) 122 [...] nystatin swish and swallow. Edited by: Christi Sherman, ACCOUNTS RECEIVABLE SPECIALIST at 05/13/2024 1232 Lines/Drains/Tubes: Patient Lines/Drains/Airways Status Active Active LDAs Name Placement date Placement time Site Days Peripheral IV 05/12/24 Anterior;Left Forearm 05/12/24 0030 Forearm 1 Peripheral IV 05/12/24 Anterior;Left;Proximal Forearm 05/12/24 0840 Forearm 1 Peripheral IV 05/12/24 Anterior;Proximal;Right Forearm 05/12/24 1600 Forearm less than 1 NG/OG [place] Sump 14 Fr Right nostril 05/11/24 2300 Right nostril 1 GCS: [place] Coma Scale Score: 15 Review of Systems [...] main artery stenosis Started on heparin drip GLUER AND SLICER HAND, continue CT Surgery consulted CABG work-up pending [...] last night COPD (chronic obstructive pulmonary disease) ([facility]) Yes Overview Addendum 05/12/2024 12:27 PM by Christi Sherman, ACCOUNTS RECEIVABLE SPECIALIST 05/07 Duo nebs q6 SPO2 goal >88% On 4LNC 05/08 on 2LNC 05/09 on 2LNC +40 lasix 05/12 ongoing 3L NSTEMI (non-ST elevated myocardial infarction) ([facility]) Yes Overview Addendum 05/11/2024 10:54 AM by Miguel Downey MD Diagnosed at OSH with elevated troponins of 0.05 to 0.23 to 0.16 Started on heparin drip GLUER AND SLICER HAND, 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 Repeat troponins pending 05/07 [...] MD - 05/13/2024 9:53 AM EDT Rere Nancy Hunter Patient was seen and examined with [...] Intake/Output Summary (Last 24 hours) at 05/13/2024 0990 Last data filed at 05/13/2024 0651 Gross [...] Jayson Estrada MD PGY-3 General Surgery Pager #[phone] Cosigned by Rebel Ayala MD at 05/13/2024 [...] from the original note were not included. [facility] Department of Surgery Division of Acute Care [...] the radiologist interpretation. Assessment/Plan Assessment & Plan: Rere Hunter is a 53 y.o. female [...] assistance is needed please page us at [phone]. Medical Problems Problem List * (Principal) CAD, multiple vessel Overview Addendum 05/12/2024 12:26 PM by Christi Sherman APRN Patient presented to OSH on 05/01/24 c/o chest pain Loaded with ASA & Plavix, continue LHC on 05/01/24 showed critical distal left main artery stenosis Started on heparin drip GLUER AND SLICER HAND, continue CT Surgery consulted CABG work-up pending [...] last night COPD (chronic obstructive pulmonary disease) ([facility]) Overview Addendum 05/12/2024 12:27 PM by Christi Sherman APRN 05/07 Duo nebs q6 SPO2 goal >88% On 4LNC 05/08 on 2LNC 05/09 on 2LNC +40 lasix 05/12 ongoing 3L NSTEMI (non-ST elevated myocardial infarction) ([facility]) Overview Addendum 05/11/2024 10:54 AM by Miguel Downey MD Diagnosed at OSH with elevated troponins of 0.05 to 0.23 to 0.16 Started on heparin drip GLUER AND SLICER HAND, 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 Repeat troponins pending 05/07 [...] Date Anxiety COPD (chronic obstructive pulmonary disease) ([facility]) 05/01/2024 Continue Duo nebs q6 SPO2 goal >88% Depression GERD (gastroesophageal reflux disease) 05/01/2024 Continue Protonix 40 mg daily On mechanically assisted ventilation ([facility]) 05/06/2024 Arrived to ICU intubated 05/07 extubated to 4LNC 05/08 resolved Tobacco use 05/01/2024 Drug Safety Associate for smoking 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 Complicates all [...] 05/12/24 0840 Forearm less than 1 NG/OG [place] Sump 14 Fr Right nostril 05/11/24 2300 [...] main artery stenosis Started on heparin drip GLUER AND SLICER HAND, continue CT Surgery consulted CABG work-up pending [...] last night COPD (chronic obstructive pulmonary disease) ([facility]) Yes Overview Addendum 05/12/2024 12:27 PM by Christi Sherman, ARASH 05/07 Duo nebs q6 SPO2 goal >88% On 4LNC 05/08 on 2LNC 05/09 on 2LNC +40 lasix 05/12 ongoing 3L NSTEMI (non-ST elevated myocardial infarction) ([facility]) Yes Overview Addendum 05/11/2024 10:54 AM by Miguel Downey MD Diagnosed at OSH with elevated troponins of 0.05 to 0.23 to 0.16 Started on heparin drip GLUER AND SLICER HAND, 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 Repeat troponins pending 05/07 [...] Note Rere Hunter 53 y.o. female CSN: [id number] Room/Bed 217/217A Nutrition evaluation type: follow-up Reason [...] (Calculated): 26.3 Weight Evaluation: Overweight (BMI 25-29.9) [place] Body Weight (kg): 47.7 Percent [place] Body Weight: 132 Adjusted Body Weight (kg): 52 Estimated Needs: Metabolic Cart Study Results: Current Nutrition Intake: Diet Order: Adult Diet Diet Texture: Clear liquid Adult Carbohydrate Restriction: Consistent CHO 2 (2286-3068 Channing, 80 g/meal) Fat Restriction: Cardiac Percent Meals Eaten (%): 0% 05/07-05/10 Diet Experience and Nutrition History: Diet Education Provided: Will monitor Pertinent home medications: reviewed [place] needs: Nutrition Focused Physical Exam: Physical exam [...] Date Anxiety COPD (chronic obstructive pulmonary disease) ([facility]) 05/01/2024 Continue Duo nebs q6 SPO2 goal >88% Depression GERD (gastroesophageal reflux disease) 05/01/2024 Continue Protonix 40 mg daily On mechanically assisted ventilation ([facility]) 05/06/2024 Arrived to ICU intubated 05/07 extubated to [facility] 05/08 resolved Tobacco use 05/01/2024 Drug Safety Associate for smoking 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 Complicates all aspects of care and recovery Tremor 05/01/2024 Continue home primidone 50 mg BID [2] Past Surgical History: Procedure Laterality Date ABDOMINAL ADHESION SURGERY SECTION, CLASSIC CHOLECYSTECTOMY HAND SURGERY Right Tendon repair SHOULDER SURGERY * Progress Notes - eGno Regan - 05/11/2024 11:03 AM EDT Occupational Therapy Treatment Patient Name: Rere Hunter Today's Date: 05/11/2024 OT Discharge Recommendations: Acute rehab Equipment Recommended: Defer to facility Subjective Pt agreeable to OT session. Pt stating that she has not been sleeping well while in the hospital. Participants in Care Family/Caregiver Present: No Water Purifier: Not Applicable Presentation Oxygen Therapy: Supplemental oxygen O2 Delivery Method: Nasal cannula O2 Flow Rate (L/min): 3 L/min Lines and Tubes: Telemetry Pacer Wires (Active) NG/OG [place] Sump Nasogastric 14 Fr Right nostril (Active) [...] Mobility Exam: Sit to Supine Level of Mack[place]: Moderate assist (50% patient's effort) Physical/Nonphysical Assist: HOB elevated, Nonverbal cues (demo/gestures), Verbal Cues, Moderate cues, Additional assist utilized for safety Transfers Transfer Exam: Sit to stand Level of [place]: Contact guard Physical/Nonphysical Assist: Nonverbal cues (demo/gestures), Verbal Cues, Minimal cues Assistive Device: Rollator Transfer Exam: Stand to Sit Level of [place]: Contact guard Physical/Nonphysical Assist: Nonverbal cues (demo/gestures), Verbal Cues, Minimal cues Assistive Device: Rollator Toilet Transfer Level of [place]: Minimum assist (75% patient's effort) Physical/Nonphysical Assist: [...] PM. * Progress Notes - Pari Lindo GLUER AND SLICER HAND - 05/11/2024 11:02 AM EDT Physical Therapy Treatment Patient Name: Rere Hunter Today's Date: 05/11/2024 PT Discharge Recommendations: Acute rehab Equipment Recommended: Defer to facility Subjective The patient states, I am so tired. Participants in Care Family/Caregiver Present: No Water Purifier: Not Applicable Presentation Oxygen: Supplemental oxygen Nasal cannula 3 L/min Telemetry: Yes Lines and Tube: Pacer Wires (Active) NG/OG [place] Sump Nasogastric 14 Fr Right nostril (Active) [...] sequencing. Bed Mobility Exam: Scooting/Bridging Level of Mackay: Dependent (to scoot to head of bed) Physical/Nonphysical Assist: Additional assist utilized for safety, Verbal Cues, Set-up required Assistive Device: Other (draw sheet) Bed Mobility Exam: Sit to Supine Level of [place]: Moderate assist (50% patient's effort) Physical/Nonphysical Assist: Additional assist utilized for safety, Verbal Cues, Set-up required Transfers Transfer Intervention: Verbal cues provided for correct bilateral hand and foot placement during sit to stand transfers. Transfer Exam: Sit to stand Level of [place]: Contact guard Physical/Nonphysical Assist: Verbal Cues, Set-up required Assistive Device: Rollator Transfer Exam: Stand to Sit Level of [place]: Contact guard Physical/Nonphysical Assist: Verbal Cues, Set-up required Assistive Device: Rollator Toilet Transfer Level of [place]: Minimum assist (75% patient's effort) Physical/Nonphysical Assist: [...] Having bowel movements. Stopped D5 AM: A&Ox4, ST 100-105 ASA/statin/BB, 3LNC CXR reviewed small residual pleural effusion, BM 05/10, NG clamp trial if <200 pull NG>CLD KUB dilated segment small bowel, -41 40 lasix Cr/BUN 1.09/22, 1 g Ca, 1mg guanfacine Edited by: Miguel Downey MD at 05/11/2024 1047 Lines/Drains/Tubes: Patient Lines/Drains/Airways Status Active Active LDAs Name Placement date Placement time Site Days Peripheral IV 05/08/24 Anterior;Right Forearm 05/08/24 1730 Forearm 2 Peripheral IV 05/09/24 Right;Upper Arm 05/09/24 1011 Arm 2 NG/OG Osseo Sump Nasogastric 14 Fr Right nostril 05/09/24 1519 Right nostril 1 Negative Pressure Wound Therapy Sternum 05/06/24 1940 Sternum 4 ROS: GCS: [place] Coma Scale Score: 15 Review [...] Right;Upper Arm 05/09/24 1011 Arm 1 NG/OG Os[place] Sump Nasogastric 14 Fr Right nostril 05/09/24 1519 Right nostril less than 1 Y Chest Tube 1 and 2 Right Mediastinal 32 Fr. Left Mediastinal 32 Fr. 05/06/241920 -- 3 Y Chest Tube 3 and 4 Pleural 32 Fr. Pleural 32 Fr. 05/06/242130 -- 3 Negative Pressure Wound Therapy Sternum 05/06/241939 Sternum 3 ROS: GCS: [place] Coma Scale Score: 14 Review of Systems [...] main artery stenosis Started on heparin drip GLUER AND SLICER HAND, continue CT Surgery consulted CABG work-up pending [...] last night COPD (chronic obstructive pulmonary disease) ([facility] [facility] Yes Overview Addendum 05/11/2024 10:53 AM by Miguel Downey MD 05/07 Duo nebs q6 SPO2 goal >88% On 4LNC 05/08 on 2LNC 05/09 on 2LNC +40 lasix 05/10 3lNC 05/11 3lNC CXR reviewed NSTEMI (non-ST elevated myocardial infarction) ([facility]) Yes Overview Addendum 05/11/2024 10:54 AM by Miguel Downey MD Diagnosed at OSH with elevated troponins of 0.05 to 0.23 to 0.16 Started on heparin drip GLUER AND SLICER HAND, 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 Repeat troponins pending 05/07 [...] Right;Upper Arm 05/09/24 1011 Arm 1 NG/OG [place] Sump Nasogastric 14 Fr Right nostril 05/09/24 1519 Right nostril less than 1 Y Chest Tube 1 and 2 Right Mediastinal 32 Fr. Left Mediastinal 32 Fr. 05/06/241 -- 3 Y Chest Tube 3 and 4 Pleural 32 Fr. Pleural 32 Fr. 05/06/242130 -- 3 Negative Pressure Wound Therapy Sternum 05/06/24 1940 Sternum 3 ROS: GCS: [place] Coma Scale Score: 14 Review of Systems [...] main artery stenosis Started on heparin drip GLUER AND SLICER HAND, continue CT Surgery consulted CABG work-up pending [...] sleeping well COPD (chronic obstructive pulmonary disease) (CMS/HCC) Yes Overview Addendum 05/10/2024 12:59 PM by Miguel Downey MD 05/07 Duo nebs q6 SPO2 goal >88% On 4LNC 05/08 on 2LNC 05/09 on 2LNC +40 lasix 05/10 3lNC NSTEMI (non-ST elevated myocardial infarction) ([facility]) Yes Overview Addendum 05/10/2024 12:59 PM by Miguel Downey MD Diagnosed at OSH with elevated troponins of 0.05 to 0.23 to 0.16 Started on heparin drip GLUER AND SLICER HAND, 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 Repeat troponins pending 05/07 [...] and Tubes: Telemetry Pacer Wires (Active) NG/OG [place] Sump Nasogastric 14 Fr Right nostril (Active) [...] Transfer Exam: Sit to stand Level of [place]: Minimum assist (75% patient's effort) (x3 reps) Physical/Nonphysical Assist: Verbal Cues, Nonverbal cues (demo/gestures) Transfer Exam: Stand to Sit Level of [place]: Minimum assist (75% patient's effort) Physical/Nonphysical Assist: Verbal Cues, Nonverbal cues (demo/gestures) Transfer Exam: Bed to Chair/Chair to Bed Level of [place]: Minimum assist (75% patient's effort) Physical/Nonphysical Assist: [...] Note Rere Hunter 53 y.o. female CSN: [id number] Admission: 05/01/2024 11:01 PM Primary Problem: CAD, [...] seen and examined with resident physicians and [facility]. Morning chest x- ray reviewed. Labs [...] Intake/Output Summary (Last 24 hours) at 05/10/2024 0705 Last data filed at 05/10/2024 0600 Gross [...] and Tubes: Telemetry Pacer Wires (Active) NG/OG [place] Sump Nasogastric 14 Fr Right nostril (Active) [...] Subjective I think I'm at home in [place]. Pt and RN agreeable to PT treatment session this date. Participants in Care Family/Caregiver Present: No Water Purifier: Not Applicable Presentation Oxygen Therapy: Supplemental oxygen [...] Mobility Bed Mobility Exam: Rolling/Turning Level of [place]: Moderate assist (50% patient effort) Physical/Nonphysical Assist: Verbal Cues, Nonverbal cues (demo/gestures), Additional assist utilized for safety, Moderate cues Bed Mobility Exam: Scooting/Bridging Level of [place]: Maximum assist (25% patient's effort) Physical/Nonphysical Assist: Verbal Cues, Minimal cues, Additional assist utilized for safety Bed Mobility Exam: Supine to Sit Level of [place]: Moderate assist (50% patient's effort) Physical/Nonphysical Assist: Verbal Cues, Nonverbal cues (demo/gestures), Moderate cues, HOB elevated Transfers Transfer Exam: Sit to stand Level of [place]: Minimum assist (75% patient's effort) Physical/Nonphysical Assist: Verbal Cues, Moderate cues, Additional assist utilized for safety, Nonverbal cues (demo/gestures) Assistive Device: Hand held assist Transfer Exam: Stand to Sit Level of [place]: Minimum assist (75% patient's effort) Physical/Nonphysical Assist: Verbal Cues, Additional assist utilized for safety, Moderate cues, Nonverbal cues (demo/gestures) Assistive Device: Hand held assist Transfer Exam: Bed to Chair/Chair to Bed Level of [place]: Minimum assist (75% patient's effort) Physical/Nonphysical Assist: [...] Therapy Sternum 05/06/241939 Sternum 2 ROS: GCS: [place] Coma Scale Score: 14 Review of Systems [...] main artery stenosis Started on heparin drip GLUER AND SLICER HAND, continue CT Surgery consulted CABG work-up pending [...] well overnight COPD (chronic obstructive pulmonary disease) ([facility]) Yes Overview Addendum 05/09/2024 11:13 AM by Miguel Downey MD 05/07 Duo nebs q6 SPO2 goal >88% On 4LNC 05/08 on 2LNC 05/09 on 2LNC +40 lasix NSTEMI (non-ST elevated myocardial infarction) ([facility]) Yes Overview Addendum 05/09/2024 11:14 AM by Miguel Downey MD Diagnosed at OSH with elevated troponins of 0.05 to 0.23 to 0.16 Started on heparin drip GLUER AND SLICER HAND, 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 Repeat troponins pending 05/07 [...] and depression COPD (chronic obstructive pulmonary disease) ([facility]/HCC) NSTEMI (non-ST elevated myocardial infarction) ([facility]) GERD (gastroesophageal reflux disease) Prolonged Q-T interval on ECG Hypercholesteremia Hypoalphalipoproteinemia Overweight THOM (obstructive sleep apnea) S/P CABG x 4 On mechanically assisted ventilation ([facility]) Low cardiac output syndrome ([facility]) Hypertension Hyperkalemia Cardiac volume overload 53 yrs [...] asked about her family and her home. Shift Foreman provided pastoral support. * Progress Notes - [...] Therapy Sternum 05/06/241939 Sternum 1 ROS: GCS: [place] Coma Scale Score: 14 Review of Systems [...] 1 VIEW COMPARISON: 05/07/2024 FINDINGS: Interval extubation. [place]Ellis catheter has been removed. Right IJ introducer [...] main artery stenosis Started on heparin drip GLUER AND SLICER HAND, continue CT Surgery consulted CABG work-up pending 05/07 POD 1 4vCABG 05/[address] recs ASA BB statin Anxiety and depression Yes Overview Addendum 05/08/2024 1:29 PM by Miguel Downey MD 05/07 Continue home bupropion XL 300 mg daily Continue home citalopram 40 mg daily Continue PRN hydroxyzine 25 mg q6 05/08 continue home meds COPD (chronic obstructive pulmonary disease) ([facility]) Yes Overview Addendum 05/08/2024 1:29 PM by Miguel Downey MD 05/07 Duo nebs q6 SPO2 goal >88% On 4LNC 05/08 on 2LNC NSTEMI (non-ST elevated myocardial infarction) ([facility]) Yes Overview Addendum 05/07/2024 10:06 AM by Miguel Downey MD Diagnosed at OSH with elevated troponins of 0.05 to 0.23 to 0.16 Started on heparin drip GLUER AND SLICER HAND, 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 Repeat troponins pending 05/07 [...] 4[facility] 05/08 resolved Low cardiac output syndrome (CMS/HCC) [...] and depression COPD (chronic obstructive pulmonary disease) ([facility]/HCC) NSTEMI (non-ST elevated myocardial infarction) ([facility]) GERD (gastroesophageal reflux disease) Prolonged Q-T interval on ECG Hypercholesteremia Hypoalphalipoproteinemia Overweight THOM (obstructive sleep apnea) S/P CABG x 4 On mechanically assisted ventilation ([facility]/HCC) Low cardiac output syndrome ([facility]/HCC) Hypertension Hyperkalemia Cardiac volume overload 53 yrs [...] at this time. * Progress Notes - Divina Yousif R - 05/07/2024 1:43 PM EDT Physical Therapy Evaluation Patient Name: Rere Hunter Today's Date: 05/07/2024 PT Discharge Recommendations: Acute rehab Equipment Recommended: Defer to facility History Rere Hunter is 53 y.o. female admitted 05/01/2024 for work-up of CAD, multiple vessel. Problem List Active Hospital Problems Diagnosis Date Noted S/P CABG x 4 05/06/2024 On mechanically assisted ventilation ([facility]) 05/06/2024 Low cardiac output syndrome ([facility]) 05/06/2024 Hypertension 05/06/2024 Hyperkalemia 05/06/2024 Cardiac volume overload 05/06/2024 Prolonged Q-T interval on ECG 05/04/2024 Hypercholesteremia 05/04/2024 Hypoalphalipoproteinemia 05/04/2024 Overweight 05/04/2024 THOM (obstructive sleep apnea) 05/04/2024 Anxiety and depression 05/01/2024 COPD (chronic obstructive pulmonary disease) ([facility]) 05/01/2024 CAD, multiple vessel 05/01/2024 NSTEMI (non-ST elevated myocardial infarction) ([facility]) 05/01/2024 GERD (gastroesophageal reflux disease) 05/01/2024 Procedures 05/06/2024 Procedure(s): CABG, 2 OR MORE VESSELS Past Medical History Patient has a past medical history of Anxiety, COPD (chronic obstructive pulmonary disease) ([facility]) (05/01/2024), Depression, GERD (gastroesophageal reflux disease) (05/01/2024), [...] Orientation Level Comments: Poor historian this date 03/18 lethargy Single Step Commands: With increased time, [...] Mobility Bed Mobility Exam: Scooting/Bridging Level of [place]: Maximum assist (25% patient's effort) (to scoot to EOB while seated) Physical/Nonphysical Assist: Nonverbal cues (demo/gestures), Verbal Cues Bed Mobility Exam: Supine to Sit Level of [place]: Maximum assist (25% patient's effort) Physical/Nonphysical Assist: Additional assist utilized for safety, Nonverbal cues (demo/gestures),Verbal Cues, HOB elevated Transfers Transfer Exam: Sit to stand Level of [place]: Minimum assist (75% patient's effort) Physical/Nonphysical Assist: Verbal Cues, Nonverbal cues (demo/gestures), 1 person + 1 person to manage equipment Transfer Exam: Stand to Sit Level of [place]: Minimum assist (75% patient's effort) Physical/Nonphysical Assist: Verbal Cues, Nonverbal cues (demo/gestures), 1 person + 1 person to manage equipment Transfer Exam: Bed to Chair/Chair to Bed Level of [place]: Minimum assist (75% patient's effort) Physical/Nonphysical Assist: [...] hypotension. Standardized Assessments Standardized Assessments Standardized Assessments: [facility] 6-Clicks Mobility Assessment [facility] 6-Clicks Mobility Assessment Difficulty patient has turning [...] 3-5 steps with a railing?: A lot [facility] 6-Clicks Mobility Assessment Total : 15 Assessment [...] x 4 05/06/2024 On mechanically assisted ventilation ([facility]) 05/06/2024 Low cardiac output syndrome ([facility]) 05/06/2024 Hypertension 05/06/2024 Hyperkalemia 05/06/2024 Cardiac volume overload 05/06/2024 Prolonged Q-T interval on ECG 05/04/2024 Hypercholesteremia 05/04/2024 Hypoalphalipoproteinemia 05/04/2024 Overweight 05/04/2024 THOM (obstructive sleep apnea) 05/04/2024 Anxiety and depression 05/01/2024 COPD (chronic obstructive pulmonary disease) ([facility]) 05/01/2024 CAD, multiple vessel 05/01/2024 NSTEMI (non-ST elevated myocardial infarction) ([facility]) 05/01/2024 GERD (gastroesophageal reflux disease) 05/01/2024 Procedures 05/06/2024 Procedure(s): CABG, 2 OR MORE VESSELS Past Medical History Patient has a past medical history of Anxiety, COPD (chronic obstructive pulmonary disease) ([facility]) (05/01/2024), Depression, GERD (gastroesophageal reflux disease) (05/01/2024), Tobacco use (05/01/2024), and Tremor (05/01/2024). Past Surgical History Patient has a past surgical history that includes section, classic; Cholecystectomy; Shoulder surgery; Abdominal adhesion surgery; and Hand surgery (Right). Precautions Medical Precautions: Fall precautions, Sternal Subjective I feel dizzy. Participants in Care Family/Caregiver Present: No Water Purifier: Not Applicable Presentation Oxygen Therapy: Supplemental oxygen [...] Mobility Bed Mobility Exam: Scooting/Bridging Level of [place]: Maximum assist (25% patient's effort) (to scoot to EOB while seated) Physical/Nonphysical Assist: Nonverbal cues (demo/gestures), Verbal Cues Bed Mobility Exam: Supine to Sit Level of [place]: Maximum assist (25% patient's effort) Physical/Nonphysical Assist: Additional assist utilized for safety, Nonverbal cues (demo/gestures),Verbal Cues, HOB elevated Transfers Transfer Exam: Sit to stand Level of [place]: Minimum assist (75% patient's effort) Physical/Nonphysical Assist: Verbal Cues, Nonverbal cues (demo/gestures), 1 person + 1 person to manage equipment Transfer Exam: Stand to Sit Level of [place]: Minimum assist (75% patient's effort) Physical/Nonphysical Assist: Verbal Cues, Nonverbal cues (demo/gestures), 1 person + 1 person to manage equipment Transfer Exam: Bed to Chair/Chair to Bed Level of [place]: Minimum assist (75% patient's effort) Physical/Nonphysical Assist: [...] from EOB with min assist x2 using PUBLIC ADMINISTRATION PROFESSOR bilaterally and mod cues. Pt side stepped to the chair with min assist x2 using PUBLIC ADMINISTRATION PROFESSOR bilaterally and mod cues for safety/balance. See vitals section above for explanation as to why we deferred further functional mobility. Standardized Assessments [facility] 6-Click Daily Activities Help from Other: Don/Doff Regular Lower Body Clothings: A lot Help From Other: Bathing: A lot Help From Other: Toileting: A lot Help From Other: Don/Doff Upper Body Clothings: Little Help From Other: Grooming: Little Help From Other: Eating Meals: Little [facility] 6 Click - Daily Activities Score: 15 [...] at 3:28 PM. * Consults - Maite Mueller, MINA - 05/07/2024 10:27 AM EDTAssociated Order(s): IP CONSULT TO NUTRITION SERVICES Adult Nutrition Evaluation Note Rere Hunter 53 y.o. female CSN: [id number] Room/Bed 217/217A Nutrition evaluation type: assessment Reason [...] Supplemental oxygen O2 Delivery Method: Nasal cannula [place] Coma Scale Score: 11 [place] Scale Score: [...] (Calculated): 25.46 Weight Evaluation: Overweight (BMI 25-29.9) [place] Body Weight (kg): 47.7 Percent [place] Body Weight: 128 Adjusted Body Weight (kg): 51 Estimated Needs: Metabolic Cart Study Results: Current Nutrition Intake: Diet Order: Adult Diet Diet Texture: Clear liquid Adult Carbohydrate Restriction: Consistent CHO 2 ([id number] [place], 80 g/meal) Fat Restriction: Cardiac Diet Experience and Nutrition History: Diet Education Provided: Will monitor Pertinent home medications: reviewed [place] needs: Nutrition Focused Physical Exam: Physical exam [...] Date Anxiety COPD (chronic obstructive pulmonary disease) ([facility]) 05/01/2024 Continue Duo nebs q6 SPO2 goal >88% Depression GERD (gastroesophageal reflux disease) 05/01/2024 Continue Protonix 40 mg daily Tobacco use 05/01/2024 Drug Safety Associate for smoking 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 Complicates all [...] POD 1 A&Ox4 GCS 15, NSR VVI /10, epi .03 weaning, extubated to 4LNC, CXR [...] main artery stenosis Started on heparin drip GLUER AND SLICER HAND, continue CT Surgery consulted CABG work-up pending 05/07 POD 1 4vCABG Anxiety and depression Yes Overview Addendum 05/07/2024 10:05 AM by Miguel Downey MD 05/07 Continue home bupropion XL 300 mg daily Continue home citalopram 40 mg daily Continue PRN hydroxyzine 25 mg q6 COPD (chronic obstructive pulmonary disease) ([facility]) Yes Overview Addendum 05/07/2024 10:06 AM by Migule Downey MD 05/07 Duo nebs q6 SPO2 goal >88% On 4LNC NSTEMI (non-ST elevated myocardial infarction) ([facility]) Yes Overview Addendum 05/07/2024 10:06 AM by Miguel Downey MD Diagnosed at OSH with elevated troponins of 0.05 to 0.23 to 0.16 Started on heparin drip GLUER AND SLICER HAND, 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 Repeat troponins pending 05/07 [...] block (epi .03) On mechanically assisted ventilation ([facility]) Not Applicable Overview Addendum 05/07/2024 10:09 AM by Miguel Downey MD Arrived to ICU intubated 05/07 extubated to 4LNC Low cardiac output syndrome (CMS/HCC) Unknown Overview [...] 35 17 19 27 29 PAP: (21-37)/(13-20) 25/18 CO: [2.6 L/min] 2.6 L/min CI: [1.6 [...] and depression COPD (chronic obstructive pulmonary disease) ([facility]) Tobacco use NSTEMI (non-ST elevated myocardial infarction) ([facility]) GERD (gastroesophageal reflux disease) Leukocytosis Essential tremor Thrombocytosis Hypocalcemia Prolonged Q-T interval on ECG Hyperlipidemia Hypercholesteremia Hypertriglyceridemia Hypoalphalipoproteinemia Overweight THOM (obstructive sleep apnea) S/P CABG x 4 On mechanically assisted ventilation ([facility]) Low cardiac output syndrome ([facility]) Hypertension Hyperkalemia Cardiac volume overload 53 yrs [...] Progress Note Rere Hunter 53 y.o. female [facility]: [id number] Admission: 05/01/2024 11:01 PM Primary Problem: CAD, [...] Date Anxiety COPD (chronic obstructive pulmonary disease) ([facility]) 05/01/2024 Depression GERD (gastroesophageal reflux disease) 05/01/2024 [...] trachea.Bilateral chest tubes, mediastinal drain, right IJ [place]- [place] catheter with the tip overlying the [...] main artery stenosis Started on heparin drip GLUER AND SLICER HAND, continue CT Surgery consulted CABG work-up pending Anxiety and depression Yes Overview Signed 05/01/2024 11:34 PM by Marylu Carvajal APRN, DNP Continue home bupropion XL 300 mg daily Continue home citalopram 40 mg daily Continue PRN hydroxyzine 25 mg q6 COPD (chronic obstructive pulmonary disease) ([facility]/HCC) Yes Overview Addendum 05/01/2024 11:32 PM by Marylu Carvajal APRN, DNP Continue Duo nebs q6 SPO2 goal >88% Tobacco use Yes Overview Signed 05/01/2024 8:37 PM by Marylu Carvajal APRN, DNP Drug Safety Associate for smoking 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 Complicates all aspects of care and recovery NSTEMI (non-ST elevated myocardial infarction) (CMS/HCC) Yes Overview Addendum 05/01/2024 8:41 PM by Marylu Carvajal APRN, DNP Diagnosed at OSH with elevated troponins of 0.05 to 0.23 to 0.16 Started on heparin drip GLUER AND SLICER HAND, 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 Repeat troponins pending GERD (gastroesophageal reflux disease) Yes Overview Signed 05/01/2024 11:32 PM by Carvajal, Marylu H, ACCOUNTS RECEIVABLE SPECIALIST, DNP Continue Protonix 40 mg daily Leukocytosis [...] to ICU intubated Low cardiac output syndrome ([facility]/HCC) Unknown Overview Signed 05/06/2024 10:08 PM by [...] CORONARY ARTERY BYPASS GRAFTING: Date: 05/06/2024 Location: [facility] Name: Rere Hunter, : 1970, Pre-operative [...] [place] - Primary * Graciela Blanca - [facility] Assisting from skin incision until decannulation, no qualified resident present for the part of the operation. Dr. Andrew Wick assisted on the sternotomy closure and soft tissue closure. Anesthesia: General ASA Class: IV Indication: Severe symptomatic coronary artery disease. Brief History: 53-year-old lady with the above-mentioned medical history that includes extensive history of smoking and COPD who was admitted with non ST elevation NM found to have severe three-vessel coronary artery [...] procedure including bleeding, infection, poor wound healing, NM, stroke, injury to any organs in the [...] midnight. Andrew Hull MD Cardiothoracic Surgery Pager: [phone] * Significant Event - Trinity Yousif APRN [...] placed. NPO after MN. CT surgery pager [phone] * Progress Notes - Trinity Yousif APRN [...] mL, Intravenous, q12h heparin - COM Adult ACS/NM Protocol - MAR calculator by anti-Xa, 0-35 [...] and tobacco abuse. She initially presented to [facility]. She ruled in for NSTEMI and [...] Leukocytosis (POA) - possible reactive secondary to NM - WBC 12.8, afebrile - continue to [...] for CABG with Dr. Austin. Cardiothoracic Surgery [phone] Cosigned by Maite Austin MD at 05/05/2024 [...] procedure including bleeding, infection, poor wound healing, NM, stroke, injury to any organs in the [...] [Held by provider] heparin - COM Adult ACS/NM Protocol - MAR calculator by anti- Xa, [...] and tobacco abuse. She initially presented to [facility]. She ruled in for NSTEMI and [...] Leukocytosis (POA) - possible reactive secondary to NM - WBC 12.8, afebrile - continue to [...] Continue current plan of care. Cardiothoracic Surgery [phone] * Care Plan - Maite Paulson RN [...] Transition of Care Outcome: Ongoing, Progressing * Vicky Stock RN - 05/03/2024 6:49 PM EDT Images from the original note were not included. 683 Visiting Family Member Verification Form This notice verifies that was in our facility today (or on , if checked [ ]). He/she was here with (relationship: ). * Can [facility] - Vicky Caruso RN - 05/03/2024 6:49 PM EDT Images from the original note were not included. 683 Visiting Family Member Verification Form This notice verifies that was in our facility today (or on , if checked [ ]). He/she was here with (relationship: ). * Progress Notes - Shola Sheridan APRN - 05/03/2024 10:43 AM EDT CVT Progress [...] mL, Intravenous, q12h heparin - COM Adult ACS/NM Protocol - MAR calculator by anti-Xa, 0-35 [...] statin Leukocytosis - possible reactive secondary to NM - afebrile - monitor COPD - Duonebs [...] Hold heparin gtt at 4am Cardiothoracic Surgery [phone] * Progress Notes - Annika Perez RN - 05/03/2024 9:40 AM EDT Case Management Adult Progress Note Rere Hunter 53 y.o. female CSN: [id number] Admission: 05/01/2024 11:01 PM Primary Problem: CAD, multiple vessel Anticipated Discharge Date: tbd Additional Comments: CM chart review. Cm attended rounding this AM to discuss POC with MD. Patient is not medically ready at this time, OR plan pending P2Y12 results. Cm/SW will follow and arrange any discharge needs closer to discharge. Annika Perez RN * [facility] - Vicky Caruso RN - 05/02/2024 3:57 [...] mL, Intravenous, q12h heparin - COM Adult ACS/NM Protocol - APR calculator by anti-Xa, 0-35 Units/kg/hr, Last Rate: 13 Units/kg/hr (05/02/24 0737) PRN medications: calcium carbonate, heparin (porcine) - COM Adult ACS/NM Protocol - APR Re-bolus Calculator, hydrOXYzine HCl, [...] statin Leukocytosis - possible reactive secondary to NM - afebrile - monitor COPD - Duonebs [...] for Tuesday pending P2y12 washout Cardiothoracic Surgery [phone] * Progress Notes - Annika Perez RN - 05/02/2024 1:05 PM EDT Case Management Adult Initial Progress Note Rere Hunter 53 y.o. female CSN: [id number] Admission: 05/01/2024 11:01 PM Primary Problem: CAD, multiple vessel Manager Laboratory reviewed chart and spoke with the patient at bedside to complete this Initial Case Management Assessment. PCP: Champ Quiroz MD Emergency Contact: Extended Emergency Contact Information Primary Emergency Contact: janeth mcknight Mobile Relation: Daughter Preferred language: [employer] needed? No Insurance: Primary Visit Coverage Payer Plan Sponsor Code Group Number Group Name [facility] MED[facility] [employer] Primary Visit Coverage Subscriber Subscriber ID Subscriber Name Subscriber N Subscriber Address [id number] RERE HUNTER [id number] [place] [address] Patient information: Primary Caregiver: Self Support System: Immediate family Daily Living Activities: Functional Status: Independent Living Arrangements: Family Type of Residence: Private residence, Single Level [address] [place], [place] [id number] Current DME: Equipment Currently Used at Home: [...] Dialysis Services: n/a Living Will/Advance Directive/Power of Event Lighting Specialist /Guardian: Unable to assess: No Have you [...] Deniesprior DME/HH/O2/HD/Abx. PCP is Dr. Quiroz in [place]. Has [employer] Medicaid insurance and uses the [facility] pharmacy. Daughter to transport and assist as [...] [facility] Unit after being transferred in from [facility] for possible surgical revascularization. Patient presented [...] depression 05/01/2024 COPD (chronic obstructive pulmonary disease) ([facility]) 05/01/2024 Tobacco use 05/01/2024 CAD, multiple vessel 05/01/2024 NSTEMI (non-ST elevated myocardial infarction) ([facility]) 05/01/2024 GERD (gastroesophageal reflux disease) 05/01/2024 Tremor 05/01/2024 HTN (hypertension) 05/01/2024 Medical History: Past Medical History: Diagnosis Date Anxiety COPD (chronic obstructive pulmonary disease) ([facility]) 05/01/2024 Continue Duo nebs q6 SPO2 goal >88% Depression GERD (gastroesophageal reflux disease) 05/01/2024 Continue Protonix 40 mg daily Tobacco use 05/01/2024 Drug Safety Associate for smoking 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 Complicates all [...] A1c Leukocytosis - possible reactive secondary to NM - monitor COPD - Duonebs ordered Anxiety/Depression [...] depression, and tobacco use who presented to [facility] on 05/01/24 c/o chest pain. Loaded with ASA and Plavix. LHC at OSH performed today showed critical distal left main artery stenosis. Also diagnosed with NSTEMI at OSH with elevated troponins of 0.05 to 0.23 to 0.16. Placed on a heparin drip prior to arrival. Transferred to [facility] on 05/01/24 for CABG evaluation by CT [...] 2 (two) times a day. 10/28/22 Jaden Corera MD escitalopram (Lexapro) 20 MG tablet Take [...] 05/01/2024 11:33 PM by Marylu Carvajal APRN, JORGE Patient presented to OSH on 05/01/24 c/o chest pain Loaded with ASA & Plavix, continue LHC on 05/01/24 showed critical distal left main artery stenosis Started on heparin drip GLUER AND SLICER HAND, continue CT Surgery consulted CABG work-up pending Anxiety and depression Yes Overview Signed 05/01/2024 11:34 PM by Marylu Carvajal APRN, DNP Continue home bupropion XL 300 mg daily Continue home citalopram 40 mg daily Continue PRN hydroxyzine 25 mg q6 COPD (chronic obstructive pulmonary disease) ([facility]) Yes Overview Addendum 05/01/2024 11:32 PM by Marylu Carvajal APRN, DNP Continue Duo nebs q6 SPO2 goal >88% Tobacco use Yes Overview Signed 05/01/2024 8:37 PM by Marylu Carvajal APRN, DNP Drug Safety Associate for smoking 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 Complicates all aspects of care and recovery NSTEMI (non-ST elevated myocardial infarction) ([facility]) Yes Overview Addendum 05/01/2024 8:41 PM by Marylu Carvajal APRN, DNP Diagnosed at OSH with elevated troponins of 0.05 to 0.23 to 0.16 Started on heparin drip GLUER AND SLICER HAND, 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 Repeat troponins pending GERD [...] units/250 mL (100 unit/mL) infusion - Adult ACS/NM Protocol heparin (porcine) - COM Adult ACS/NM Protocol - MAR Re-bolus Calculator injection 0-3,700 [...] depression, and tobacco use who presented to [facility] on 05/01/24 c/o chest pain. Loaded with ASA and Plavix. LHC at OSH performed today showed critical distal left main artery stenosis. Also diagnosed with NSTEMI at OSH with elevated troponins of 0.05 to 0.23 to 0.16. Placed on a heparin drip prior to arrival. Transferred to [facility] on 05/01/24 for CABG evaluation by [facility] [...] Care Team (Late st Contact Info) Description 08/14/2024 8:20 AM EDT Office Visit [facility] General Surgery [address] [place] [address] 10/30/2024 10:45 AM EDT Office Visit [facility] General Surgery [address], [address] [place] [address] Lidia Troncoso MD [address] [facility] [address] [place] [address] Pending Results Name Type Priority Associated Diagnoses Date /Time Prepare Leukocyte Reduced RBC: 2 Units Blood Bank STAT 05/06/2024 6:41 PM EDT Scheduled Referrals Name Type Priority Associated Diagnoses Order Schedule Discharge Ambulatory referral to Cardiac Rehab Outpatient Referral Routine CAD, multiple vessel 1 Occurrences starting 05/06/2024 until 11/06/2025 Discharge Ambulatory referral to [facility] Outpatient Referral Routine Abdominal fluid collection Expected: 06/18/2024, Expires: 12/04/2025 Discharge Ambulatory referral to NON Home Health Outpatient Referral Routine S/P CABG x 4 Expected: 06/16/2024 (Approximate), Expires: 12/16/2025 Discharge Ambulatory referral to NON Home Health Outpatient Referral Routine S/P CABG x [...] within 1 therapy visit. Occupational Therapy No Jd Sabillon documented as of this encounter Procedures Procedure [...] OXYGEN THERAPY Routine 05/30/2024 8:00 PM EDT WI NEGATIVE PRESSURE WOUND THERAPY DME >50 SQ [...] OXYGEN THERAPY Routine 05/28/2024 8:00 PM EDT WI NEGATIVE PRESSURE WOUND THERAPY DME >50 SQ CM Routine 05/28/2024 6:10 PM EDT Colon perforation (CMS/HCC) WI CRITICAL CARE, ADDL 30 MIN Routine 05/28/2024 [...] PEP THERAPY Routine 05/27/2024 2:00 PM EDT WI CRITICAL CARE, E/M 30-74 MINUTES Routine 05/27/2024 11:12 AM EDT Colon perforation (CMS/HCC) PEP THERAPY Routine 05/27/2024 10:00 AM EDT OXYGEN THERAPY Routine 05/27/2024 8:00 AM EDT PEP THERAPY Routine 05/27/2024 6:00 AM EDT MORPHOLOGY Routine 05/27/2024 4:54 AM EDT MANUAL DIFFERENTIAL Routine 05/27/2024 4 :54 AM EDT CBC WITH AUTO DIFFERENTIAL Routine 05/27/2024 4:54 AM EDT MAGNESIUM, PLASMA Routine 05/27/2024 4:54 AM EDT RENAL FUNCTION PANEL, PLASMA Routine [...] BLOOD CELLS Routine 05/26/2024 4:16 PM EDT WI CRITICAL CARE, ADDL 30 MIN Routine 05/26/2024 [...] PEP THERAPY Routine 05/24/2024 2:00 PM EDT WI CRITICAL CARE, E/M 30-74 MINUTES Routine 05/24/2024 [...] PEP THERAPY Routine 05/23/2024 2:00 PM EDT WI PART REMOVAL COLON W ANASTOMOSIS 05/23/2024 1:16 PM EDT Colon perforation (CMS/HCC) WI EXPLORATORY OF ABDOMEN 05/23/2024 1:16 PM EDT [...] 6:13 AM EDT MANUAL DIFFERENTIAL STAT 05/22/2024 6 :13 AM EDT CBC WITH AUTO DIFFERENTIAL STAT [...] PANEL, PLASMA Timed 05/21/2024 12:09 PM EDT WI CRITICAL CARE, E/M 30-74 MINUTES Routine 05/21/2024 [...] PEP THERAPY Routine 05/20/2024 2:00 PM EDT WI CRITICAL CARE, E/M 30-74 MINUTES Routine 05/20/2024 [...] PEP THERAPY Routine 05/19/2024 6:00 PM EDT WI CRITICAL CARE, E/M 30-74 MINUTES Routine 05/19/2024 [...] VIEW Routine 05/19/2024 4:4 3 AM EDT WI CRITICAL CARE, ADDL 30 MIN Routine 05/19/2024 [...] UNSOLICITED RESULTS Routine 05/18/2024 5:55 PM EDT WI CRITICAL CARE, E/M 30-74 MINUTES Routine 05/18/2024 [...] PEP THERAPY Routine 05/17/2024 6:00 PM EDT WI CRITICAL CARE, E/M 30-74 MINUTES Routine 05/17/2024 [...] PANEL, PLASMA Routine 05/09/2024 11:30 AM EDT WI CRITICAL CARE, ADDL 30 MIN Routine 05/09/2024 [...] PEP THERAPY Routine 05/08/2024 2:00 PM EDT WI CRITICAL CARE, ADDL 30 MIN Routine 05/08/2024 [...] UNSOLICITED RESULTS Routine 05/07/2024 1:50 PM EDT WI CRITICAL CARE, ADDL 30 MIN Routine 05/07/2024 [...] ARTERIAL Pending Discharge 05/07/2024 12:45 AM EDT WI CRITICAL CARE, E/M 30-74 MINUTES Routine 05/06/2024 [...] MD on 06/21/2024 10:22 AM Trinity Yousif ACCOUNTS RECEIVABLE SPECIALIST IMG XR PROCEDURES Final Result * XR [...] Dinah Easton MD on 06/21/2024 7:27 AM Trinity Yousif APRN IMG XR PROCEDURES Final Result * (ABNORMAL) Magnesium (06/21/2024 2:59 AM EDT) Magnesium, Plasma 1.7(L) 1.9 - 2.4 mg/dL 06/21/2024 3:52 AM EDT [facility] Blood Venous blood specimen / Unknown Venipuncture / Unknown 06/21/2024 2:59 AM EDT 06/21/2024 3:23 AM EDT Trinity Yousif APRN LAB BLOOD ORDERABLES Final Res ult [facility] [address] [place] [address] * (ABNORMAL) Comprehensive metabolic panel (06/21/2024 2:59 AM EDT) Glucose, Plasma 94 74 - 99 mg/dL 06/21/2024 3:52 AM EDT [facility] BUN, Plasma 4(L) 7 - 21 mg/dL 06/21/2024 3:52 AM EDT [facility] Creatinine, Plasma 0.63 0.60 - 1.10 mg/dL 06/21/2024 3:52 AM EDT [facility] BUN/Creatinine Ratio 6 06/21/2024 3:52 AM EDT [facility] Sodium, Plasma 131(L) 136 - 145 mmol/L 06/21/2024 3:52 AM EDT [facility] Potassium, Plasma 3.9 3.6 - 4.9 mmol/L 06/21/2024 3:52 AM EDT [facility] Chloride, Plasma 98 97 - 107 mmol/L 06/21/2024 3:52 AM EDT [facility] CO2, Plasma 25 22 - 29 mmol/L 06/21/2024 3:52 AM EDT [facility] Anion Gap 8 6 - 16 mmol/L 06/21/2024 3:52 AM EDT [facility] Total Calcium, Plasma 8.1(L) 8.9 - 10.2 mg/dL 06/21/2024 3:52 AM EDT [facility] Total Protein 6.7 6.3 - 7.9 g/dL 06/21/2024 3:52 AM EDT [facility] Albumin, Plasma 2.5(L) 3.5 - 5.2 g/dL 06/21/2024 3:52 AM EDT [facility] AST, Plasma 31 10 - 35 U/L 06/21/2024 3:52 AM EDT [facility] ALT, Plasma 54(H) 10 - 35 U/L 06/21/2024 3:52 AM EDT [facility] Alkaline Phosphatase, Plasma 155(H) 35 - 104 U/L 06/21/2024 3:52 AM EDT [facility] Total Bilirubin, Plasma 0.2 0.2 - 1.1 mg/dL 06/21/2024 3:52 AM EDT [facility] eGFRcr 105.6 mL/min/1.7 3m*2 06/21/2024 3:52 AM EDT [facility] Comment:Reported eGFRcr in m L/min/1.73m2 is based the CKD-EPI 2020 equation that does not use a race coefficient. Blood Venous blood specimen / Unknown Venipuncture / Unknown 06/21/2024 2:59 AM EDT 06/21/2024 3:23 AM EDT us Trinity Yousif ACCOUNTS RECEIVABLE SPECIALIST LAB BLOOD ORDERABLES Final Res ult [facility] [address] [place] [address] * (ABNORMAL) Hemogram (CBC) (06/21/2024 2:59 AM EDT) [facility] WBC Count 12.36(H) 3.70 - 10.30 10*3/uL LAB HEMATOLOGY METHOD 06/21/2024 3:32 AM EDT [facility] RBC Count 3.86(L) 3.90 - 5.20 10*6/uL LAB HEMATOLOGY METHOD 06/21/2024 3:32 AM EDT [facility] HGB 11.2 11.2 - 15.7 g/dL LAB HEMATOLOGY METHOD 06/21/2024 3:32 AM EDT [facility] HCT 34.9 34.0 - 45.0 % LAB HEMATOLOGY METHOD 06/21/2024 3:32 AM EDT [facility] Platelet Count 707(H) 155 - 369 10*3/uL LAB HEMATOLOGY METHOD 06/21/2024 3:32 AM EDT [facility] MCV 90 79 - 98 fL LAB HEMATOLOGY METHOD 06/21/2024 3:32 AM EDT [facility] MCH 29.0 26.0 - 32.0 pg LAB HEMATOLOGY METHOD 06/21/2024 3:32 AM EDT [facility] MCHC 32.1 30.7 - 35.5 g/dL LAB HEMATOLOGY METHOD 06/21/2024 3:32 AM EDT [facility] RDW 14.6(H) 11.5 - 14.5 % LAB HEMATOLOGY METHOD 06/21/2024 3:32 AM EDT [facility] MPV 8.6(L) 8.8 - 12.5 fL LAB HEMATOLOGY METHOD 06/21/2024 3:32 AM EDT [facility] nRBC 0.0 <=0.0 per 100 WBCs LAB HEMATOLOGY METHOD 06/21/2024 3:32 AM EDT [facility] Blood Venous blood specimen / Unknown Venipuncture / Unknown 06/21/2024 2:59 AM EDT 06/21/2024 3:24 AM EDT us Trinity Yousif ACCOUNTS RECEIVABLE SPECIALIST LAB BLOOD ORDERABLES Final Res ult [facility] [address] [place] [address] * XR Abdomen 1 View (06/20/2024 5:30 [...] - 899 pg/mL 06/20/2024 6:04 AM EDT [facility] Blood Venous blood specimen / Unknown Venipuncture / Unknown 06/20/2024 4:45 AM EDT 06/20/2024 5:24 AM EDT Dulce A Zacher ACCOUNTS RECEIVABLE SPECIALIST LAB BLOOD ORDERABLES Final R esult [facility] [address] [place] [address] * (ABNORMAL) Comprehensive Metabolic Panel, Plasma (06/20/2024 4:45 AM EDT) Glucose, Plasma 98 74 - 99 mg/dL 06/20/2024 6:04 AM EDT [facility] BUN, Plasma 4(L) 7 - 21 mg/dL 06/20/2024 6:04 AM EDT [facility] Creatinine, Plasma 0.59(L) 0.60 - 1.10 mg/dL 06/20/2024 6:04 AM EDT [facility] BUN/Creatinine Ratio 7 06/20/2024 6:04 AM EDT [facility] Sodium, Plasma 129(L) 136 - 145 mmol/L 06/20/2024 6:04 AM EDT [facility] Potassium, Plasma 4.4 3.6 - 4.9 mmol/L 06/20/2024 6:04 AM EDT [facility] Chloride, Plasma 95(L) 97 - 107 mmol/L 06/20/2024 6:04 AM EDT [facility] CO2, Plasma 24 22 - 29 mmol/L 06/20/2024 6:04 AM EDT [facility] Anion Gap 10 6 - 16 mmol/L 06/20/2024 6:04 AM EDT [facility] Total Calcium, Plasma 7.9(L) 8.9 - 10.2 mg/dL 06/20/2024 6:04 AM EDT [facility] Total Protein 6.5 6.3 - 7.9 g/dL 06/20/2024 6:04 AM EDT [facility] Albumin, Plasma 2.5(L) 3.5 - 5.2 g/dL 06/20/2024 6:04 AM EDT [facility] AST, Plasma 45(H) 10 - 35 U/L 06/20/2024 6:04 AM EDT [facility] ALT, Plasma 68(H) 10 - 35 U/L 06/20/2024 6:04 AM EDT [facility] Alkaline Phosphatase, Plasma 159(H) 35 - 104 U/L 06/20/2024 6:04 AM EDT [facility] Total Bilirubin, Plasma 0.2 0.2 - 1.1 mg/dL 06/20/2024 6:04 AM EDT [facility] eGFRcr 107.3 mL/min/1.7 3m*2 06/20/2024 6:04 AM EDT [facility] Comment:Reported eGFRcr in m L/min/1.73m2 is based the CKD-EPI 2020 equation that does not use a race coefficient. Blood Venous blood specimen / Unknown Venipuncture / Unknown 06/20/2024 4:45 AM EDT 06/20/2024 5:24 AM EDT Dulce Alamo APRN LAB BLOOD ORDERABLES Final R esult Performing Organization Address City/[facility]/ZIP Co de Phone Number [facility] [address] [place] [address] * Magnesium, Plasma (06/20/2024 4:45 AM EDT) Magnesium, Plasma 1.9 1.9 - 2.4 mg/dL 06/20/2024 6:04 AM EDT [facility] Blood Venous blood specimen / Unknown Venipuncture / Unknown 06/20/2024 4:45 AM EDT 06/20/2024 5:24 AM EDT Dulce Alamo APRN LAB BLOOD ORDERABLES Final R esult [facility] [address] [place] [address] * (ABNORMAL) CBC W/O Differential (06/20/2024 4:45 AM EDT) WBC Count 17.53(H) 3.70 - 10.30 10*3/uL LAB HEMATOLOGY METHOD 06/20/2024 5:54 AM EDT [facility] RBC Count 3.83(L) 3.90 - 5.20 10*6/uL LAB HEMATOLOGY METHOD 06/20/2024 5:54 AM EDT [facility] HGB 11.2 11.2 - 15.7 g/dL LAB HEMATOLOGY METHOD 06/20/2024 5:54 AM EDT [facility] HCT 34.5 34.0 - 45.0 % LAB HEMATOLOGY METHOD 06/20/2024 5:54 AM EDT [facility] Platelet Count 682(H) 155 - 369 10*3/uL LAB HEMATOLOGY METHOD 06/20/2024 5:54 AM EDT [facility] MCV 90 79 - 98 fL LAB HEMATOLOGY METHOD 06/20/2024 5:54 AM EDT [facility] MCH 29.2 26.0 - 32.0 pg LAB HEMATOLOGY METHOD 06/20/2024 5:54 AM EDT [facility] MCHC 32.5 30.7 - 35.5 g/dL LAB HEMATOLOGY METHOD 06/20/2024 5:54 AM EDT [facility] RDW 14.6(H) 11.5 - 14.5 % LAB HEMATOLOGY METHOD 06/20/2024 5:54 AM EDT [facility] MPV 8.8 8.8 - 12.5 fL LAB HEMATOLOGY METHOD 06/20/2024 5:54 AM EDT [facility] nRBC 0.0 <=0.0 per 100 WBCs LAB HEMATOLOGY METHOD 06/20/2024 5:54 AM EDT [facility] Blood Venous blood specimen / Unknown Venipuncture / Unknown 06/20/2024 4:45 AM EDT 06/20/2024 5:27 AM EDT us Dulce Alamo APRN LAB BLOOD ORDERABLES Final R esult [facility] [address] [place] [address] * N-Terminal Probnp, Plasma (06/19/2024 5:13 AM EDT) N-Terminal, PROBNP, Plasma 481 0 - 899 pg/mL 06/19/2024 6:05 PM EDT [facility] Blood Venous blood specimen / Unknown Venipuncture / Unknown 06/19/2024 5:13 AM EDT 06/19/2024 5:40 AM EDT us Dulce Alamo ACCOUNTS RECEIVABLE SPECIALIST LAB BLOOD ORDERABLES Final R esult Performing Organization Address [facility] Co de Phone Number [facility] [address] [place] [address] * (ABNORMAL) Magnesium (06/19/2024 5:13 AM EDT) Magnesium, Plasma 1.8(L) 1.9 - 2.4 mg/dL 06/19/2024 6:13 AM EDT [facility] Blood Venous blood specimen / Unknown Venipuncture / Unknown 06/19/2024 5:13 AM EDT 06/19/2024 5:40 AM EDT us Trinity Yousif ACCOUNTS RECEIVABLE SPECIALIST LAB BLOOD ORDERABLES Final Res ult Performing Organization Address [facility] de Phone Number [facility] [address] [place] [address] * (ABNORMAL) Comprehensive metabolic panel (06/19/2024 5:13 AM EDT) Glucose, Plasma 90 74 - 99 mg/dL 06/19/2024 6:13 AM EDT [facility] BUN, Plasma 5(L) 7 - 21 mg/dL 06/19/2024 6:13 AM EDT [facility] Creatinine, Plasma 0.69 0.60 - 1.10 mg/dL 06/19/2024 6:13 AM EDT [facility] BUN/Creatinine Ratio 7 06/19/2024 6:13 AM EDT [facility] Sodium, Plasma 130(L) 136 - 145 mmol/L 06/19/2024 6:13 AM EDT [facility] Potassium, Plasma 3.5(L) 3.6 - 4.9 mmol/L 06/19/2024 6:13 AM EDT [facility] Chloride, Plasma 97 97 - 107 mmol/L 06/19/2024 6:13 AM EDT [facility] CO2, Plasma 24 22 - 29 mmol/L 06/19/2024 6:13 AM EDT [facility] Anion Gap 9 6 - 16 mmol/L 06/19/2024 6:13 AM EDT [facility] Total Calcium, Plasma 8.1(L) 8.9 - 10.2 mg/dL 06/19/2024 6:13 AM EDT [facility] Total Protein 6.5 6.3 - 7.9 g/dL 06/19/2024 6:13 AM EDT [facility] Albumin, Plasma 2.5(L) 3.5 - 5.2 g/dL 06/19/2024 6:13 AM EDT [facility] AST, Plasma 37(H) 10 - 35 U/L 06/19/2024 6:13 AM EDT [facility] ALT, Plasma 62(H) 10 - 35 U/L 06/19/2024 6:13 AM EDT [facility] Alkaline Phosphatase, Plasma 153(H) 35 - 104 U/L 06/19/2024 6:13 AM EDT [facility] Total Bilirubin, Plasma 0.2 0.2 - 1.1 mg/dL 06/19/2024 6:13 AM EDT [facility] eGFRcr 103.3 mL/min/1.7 3m*2 06/19/2024 6:13 AM EDT [facility] Comment:Reported eGFRcr in m L/min/1.73m2 is based the CKD-EPI 2020 equation that does not use a race coefficient. Blood Venous blood specimen / Unknown Venipuncture / Unknown 06/19/2024 5:13 AM EDT 06/19/2024 5:40 AM EDT us Trinity Yousif ACCOUNTS RECEIVABLE SPECIALIST LAB BLOOD ORDERABLES Final Res ult [facility] [address] [place] [address] * (ABNORMAL) Hemogram (CBC) (06/19/2024 5:13 AM EDT) WBC Count 11.65(H) 3.70 - 10.30 10*3/uL LAB HEMATOLOGY METHOD 06/19/2024 5:51 AM EDT [facility] RBC Count 3.67(L) 3.90 - 5.20 10*6/uL LAB HEMATOLOGY METHOD 06/19/2024 5:51 AM EDT [facility] HGB 10.7(L) 11.2 - 15.7 g/dL LAB HEMATOLOGY METHOD 06/19/2024 5:51 AM EDT [facility] HCT 33.1(L) 34.0 - 45.0 % LAB HEMATOLOGY METHOD 06/19/2024 5:51 AM EDT [facility] Platelet Count 615(H) 155 - 369 10*3/uL LAB HEMATOLOGY METHOD 06/19/2024 5:51 AM EDT [facility] MCV 90 79 - 98 fL LAB HEMATOLOGY METHOD 06/19/2024 5:51 AM EDT [facility] MCH 29.2 26.0 - 32.0 pg LAB HEMATOLOGY METHOD 06/19/2024 5:51 AM EDT [facility] MCHC 32.3 30.7 - 35.5 g/dL LAB HEMATOLOGY METHOD 06/19/2024 5:51 AM EDT [facility] RDW 14.6(H) 11.5 - 14.5 % LAB HEMATOLOGY METHOD 06/19/2024 5:51 AM EDT [facility] MPV 8.8 8.8 - 12.5 fL LAB HEMATOLOGY METHOD 06/19/2024 5:51 AM EDT [facility] nRBC 0.0 <=0.0 per 100 WBCs LAB HEMATOLOGY METHOD 06/19/2024 5:51 AM EDT [facility] Blood Venous blood specimen / Unknown Venipuncture / Unknown 06/19/2024 5:13 AM EDT 06/19/2024 5:41 AM EDT us Trinity Yousif APRN LAB BLOOD ORDERABLES Final Res ult [facility] [address] [place] [address] * XR Abdomen 1 View (06/19/2024 5:08 [...] Orlando Davenport MD on 06/19/2024 8:19 AM us Trinity Yousif ACCOUNTS RECEIVABLE SPECIALIST IMG XR PROCEDURES Final Result * XR [...] COMMUNICATION: Per this written report. Drafted by Gulshna An MD on 06/18/2024 8:43 AM Final report signed by Gulshan An MD on 06/18/2024 8:43 AM Trinity Anne Yousif ARASH IMG XR PROCEDURES Final Result * XR [...] - 2.4 mg/dL 06/18/2024 3:39 AM EDT [facility] Blood Venous blood specimen / Unknown Venipuncture / Unknown 06/18/2024 2:32 AM EDT 06/18/2024 3:02 AM EDT us Trinity Yousif APRN LAB BLOOD ORDERABLES Final Res ult [facility] [address] [place] [address] * (ABNORMAL) Comprehensive metabolic panel (06/18/2024 2:32 AM EDT) [facility] Glucose, Plasma 94 74 - 99 mg/dL 06/18/2024 3:39 AM EDT [facility] BUN, Plasma 4(L) 7 - 21 mg/dL 06/18/2024 3:39 AM EDT [facility] Creatinine, Plasma 0.59(L) 0.60 - 1.10 mg/dL 06/18/2024 3:39 AM EDT [facility] BUN/Creatinine Ratio 7 06/18/2024 3:39 AM EDT [facility] Sodium, Plasma 132(L) 136 - 145 mmol/L 06/18/2024 3:39 AM EDT [facility] Potassium, Plasma 4.1 3.6 - 4.9 mmol/L 06/18/2024 3:39 AM EDT [facility] Chloride, Plasma 96(L) 97 - 107 mmol/L 06/18/2024 3:39 AM EDT [facility] CO2, Plasma 25 22 - 29 mmol/L 06/18/2024 3:39 AM EDT [facility] Anion Gap 11 6 - 16 mmol/L 06/18/2024 3:39 AM EDT [facility] Total Calcium, Plasma 8.3(L) 8.9 - 10.2 mg/dL 06/18/2024 3:39 AM EDT [facility] Total Protein 6.6 6.3 - 7.9 g/dL 06/18/2024 3:39 AM EDT [facility] Albumin, Plasma 2.7(L) 3.5 - 5.2 g/dL 06/18/2024 3:39 AM EDT [facility] AST, Plasma 43(H) 10 - 35 U/L 06/18/2024 3:39 AM EDT [facility] ALT, Plasma 72(H) 10 - 35 U/L 06/18/2024 3:39 AM EDT [facility] Alkaline Phosphatase, Plasma 164(H) 35 - 104 U/L 06/18/2024 3:39 AM EDT [facility] Total Bilirubin, Plasma 0.3 0.2 - 1.1 mg/dL 06/18/2024 3:39 AM EDT [facility] eGFRcr 107.3 mL/min/1.7 3m*2 06/18/2024 3:39 AM EDT [facility] Comment:Reported eGFRcr in m L/min/1.73m2 is based the CKD-EPI 2020 equation that does not use a race coefficient. Blood Venous blood specimen / Unknown Venipuncture / Unknown 06/18/2024 2:32 AM EDT 06/18/2024 3:02 AM EDT us Trinity Yousif APRN LAB BLOOD ORDERABLES Final Res ult [facility] [address] [place] [address] * (ABNORMAL) Hemogram (CBC) (06/18/2024 2:32 AM EDT) WBC Count 16.58(H) 3.70 - 10.30 10*3/uL LAB HEMATOLOGY METHOD 06/18/2024 3:13 AM EDT [facility] RBC Count 3.79(L) 3.90 - 5.20 10*6/uL LAB HEMATOLOGY METHOD 06/18/2024 3:13 AM EDT [facility] HGB 11.0(L) 11.2 - 15.7 g/dL LAB HEMATOLOGY METHOD 06/18/2024 3:13 AM EDT [facility] HCT 33.7(L) 34.0 - 45.0 % LAB HEMATOLOGY METHOD 06/18/2024 3:13 AM EDT [facility] Platelet Count 565(H) 155 - 369 10*3/uL LAB HEMATOLOGY METHOD 06/18/2024 3:13 AM EDT [facility] MCV 89 79 - 98 fL LAB HEMATOLOGY METHOD 06/18/2024 3:13 AM EDT [facility] MCH 29.0 26.0 - 32.0 pg LAB HEMATOLOGY METHOD 06/18/2024 3:13 AM EDT [facility] MCHC 32.6 30.7 - 35.5 g/dL LAB HEMATOLOGY METHOD 06/18/2024 3:13 AM EDT [facility] RDW 14.7(H) 11.5 - 14.5 % LAB HEMATOLOGY METHOD 06/18/2024 3:13 AM EDT [facility] MPV 8.8 8.8 - 12.5 fL LAB HEMATOLOGY METHOD 06/18/2024 3:13 AM EDT [facility] nRBC 0.0 <=0.0 per 100 WBCs LAB HEMATOLOGY METHOD 06/18/2024 3:13 AM EDT [facility] [facility] Blood Venous blood specimen / Unknown Venipuncture / Unknown 06/18/2024 2:32 AM EDT 06/18/2024 3:02 AM EDT us Trinity Yousif APRN LAB BLOOD ORDERABLES Final Res ult Performing Organization Address City/[facility]/ZIP Co de Phone Number [facility] [address] [place] [address] * (ABNORMAL) POCT glucose meter (06/17/2024 8:09 PM EDT) POCT Glucose 145(H) 74 - 99 mg/dL 06/17/2024 8:11 PM EDT [facility] Comment:Accuracy of [...] Comment 06/17/2024 8:11 PM EDT [facility] C.O.D. Biller ID Aletha Vargaskunuh 025 8:11 PM EDT [facility] Device ID [id number] 06/17/2024 8:11 PM EDT [facility] Specimen Type POC Capillary 06/17/2024 8:11 PM EDT [facility] Blood Capillary blood specimen / Unknown 06/17/2024 8:09 PM EDT 06/17/2024 8:11 PM EDT us Maite Austin MD LAB POINT OF CARE TE ST DOCKED DEVICE UNSOLICITED RESULTS Final Result Performing Organization Address City/[facility]/ZIP Co de Phone Number [facility] [address] [place] [address] * (ABNORMAL) POCT glucose meter (06/17/2024 4:51 [...] for testing. Comment 06/17/2024 7:32 PM EDT [facility] C.O.D. Biller ID Brooklyn Goldsmith 06/17/2024 7:32 PM EDT [facility] Device ID [id number] 06/17/2024 7:32 PM EDT [facility] Specimen Type POC Capillary 06/17/2024 7:32 PM EDT [facility] Blood Capillary blood specimen / Unknown 06/17/2024 4:51 PM EDT 06/17/2024 7:32 PM EDT us Maite Austin MD LAB POINT OF CARE TE ST DOCKED DEVICE UNSOLICITED RESULTS Final Result [facility] [address] [place] [address] * XR Abdomen 1 View (06/17/2024 2:52 [...] Yamil Delong MD on 06/17/2024 3:00 PM Triinty Yousif ACCOUNTS RECEIVABLE SPECIALIST IMG XR PROCEDURES Final Result * POCT glucose meter (06/17/2024 12:00 PM EDT) POCT Glucose 94 74 - [...] 06/17/2024 7:19 PM EDT [facility] C.O.D. Biller ID Leonarda Londono 7:19 PM EDT [facility] Device ID [id number] 06/17/2024 7:19 PM EDT [facility] Specimen Type POC Capillary 06/17/2024 7:19 PM EDT [facility] Blood Capillary blood specimen / Unknown 06/17/2024 12:00 PM EDT 06/17/2024 7:19 PM EDT Maite Austin MD LAB POINT OF CARE TE ST DOCKED DEVICE UNSOLICITED RESULTS Final Result [facility] [address] [place] [address] * POCT glucose meter (06/17/2024 7:48 AM EDT) POCT Glucose 86 74 - 99 mg/dL [...] 06/17/2024 7:17 PM EDT [facility] C.O.D. Biller ID Leonarda Londono 7:17 PM EDT [facility] Device ID [id number] 06/17/2024 7:17 PM EDT [facility] Specimen Type POC Capillary 06/17/2024 7:17 PM EDT [facility] Blood Capillary blood specimen / Unknown 06/17/2024 7:48 AM EDT 06/17/2024 7:17 PM EDT Maite Austin MD LAB POINT OF CARE TE ST DOCKED DEVICE UNSOLICITED RESULTS Final Result Performing Organization Address [facility] de Phone Number [facility] [address] [place] [address] * XR Chest 1 View (06/17/2024 5:15 [...] - 2.4 mg/dL 06/17/2024 4:36 AM EDT [facility] Blood Venous blood specimen / Unknown Venipuncture / Unknown 06/17/2024 3:53 AM EDT 06/17/2024 4:06 AM EDT us Trinity Yousif APRN LAB BLOOD ORDERABLES Final Res ult [facility] [address] [place] [address] * (ABNORMAL) Comprehensive metabolic panel (06/17/2024 3:53 AM EDT) Glucose, Plasma 104(H) 74 - 99 mg/dL 06/17/2024 4:36 AM EDT [facility] BUN, Plasma 4(L) 7 - 21 mg/dL 06/17/2024 4:36 AM EDT [facility] Creatinine, Plasma 0.61 0.60 - 1.10 mg/dL 06/17/2024 4:36 AM EDT [facility] BUN/Creatinine Ratio 7 06/17/2024 4:36 AM EDT [facility] Sodium, Plasma 130(L) 136 - 145 mmol/L 06/17/2024 4:36 AM EDT [facility] Potassium, Plasma 4.2 3.6 - 4.9 mmol/L 06/17/2024 4:36 AM EDT [facility] Chloride, Plasma 95(L) 97 - 107 mmol/L 06/17/2024 4:36 AM EDT [facility] CO2, Plasma 25 22 - 29 mmol/L 06/17/2024 4:36 AM EDT [facility] Anion Gap 10 6 - 16 mmol/L 06/17/2024 4:36 AM EDT [facility] Total Calcium, Plasma 8.3(L) 8.9 - 10.2 mg/dL 06/17/2024 4:36 AM EDT [facility] Total Protein 6.9 6.3 - 7.9 g/dL 06/17/2024 4:36 AM EDT [facility] Albumin, Plasma 2.7(L) 3.5 - 5.2 g/dL 06/17/2024 4:36 AM EDT [facility] AST, Plasma 70(H) 10 - 35 U/L 06/17/2024 4:36 AM EDT [facility] ALT, Plasma 87(H) 10 - 35 U/L 06/17/2024 4:36 AM EDT [facility] Alkaline Phosphatase, Plasma 172(H) 35 - 104 U/L 06/17/2024 4:36 AM EDT [facility] Total Bilirubin, Plasma 0.3 0.2 - 1.1 mg/dL 06/17/2024 4:36 AM EDT [facility] eGFRcr 106.4 mL/min/1.7 3m*2 06/17/2024 4:36 AM EDT [facility] Comment:Reported eGFRcr in m L/min/1.73m2 is based the CKD-EPI 2020 equation that does not use a race coefficient. Blood Venous blood specimen / Unknown Venipuncture / Unknown 06/17/2024 3:53 AM EDT 06/17/2024 4:06 AM EDT us Trinity Yousif ACCOUNTS RECEIVABLE SPECIALIST LAB BLOOD ORDERABLES Final Res ult [facility] [address] [place] [address] * (ABNORMAL) Hemogram (CBC) (06/17/2024 3:53 AM EDT) WBC Count 12.53(H) 3.70 - 10.30 10*3/uL LAB HEMATOLOGY METHOD 06/17/2024 4:17 AM EDT [facility] RBC Count 3.53(L) 3.90 - 5.20 10*6/uL LAB HEMATOLOGY METHOD 06/17/2024 4:17 AM EDT [facility] HGB 10.4(L) 11.2 - 15.7 g/dL LAB HEMATOLOGY METHOD 06/17/2024 4:17 AM EDT [facility] HCT 31.9(L) 34.0 - 45.0 % LAB HEMATOLOGY METHOD 06/17/2024 4:17 AM EDT [facility] Platelet Count 514(H) 155 - 369 10*3/uL LAB HEMATOLOGY METHOD 06/17/2024 4:17 AM EDT [facility] MCV 90 79 - 98 fL LAB HEMATOLOGY METHOD 06/17/2024 4:17 AM EDT [facility] MCH 29.5 26.0 - 32.0 pg LAB HEMATOLOGY METHOD 06/17/2024 4:17 AM EDT [facility] MCHC 32.6 30.7 - 35.5 g/dL LAB HEMATOLOGY METHOD 06/17/2024 4:17 AM EDT [facility] RDW 14.8(H) 11.5 - 14.5 % LAB HEMATOLOGY METHOD 06/17/2024 4:17 AM EDT [facility] MPV 8.8 8.8 - 12.5 fL LAB HEMATOLOGY METHOD 06/17/2024 4:17 AM EDT [facility] nRBC 0.0 <=0.0 per 100 WBCs LAB HEMATOLOGY METHOD 06/17/2024 4:17 AM EDT [facility] Blood Venous blood specimen / Unknown Venipuncture / Unknown 06/17/2024 3:53 AM EDT 06/17/2024 4:07 AM EDT us Trinity S Yousif ACCOUNTS RECEIVABLE SPECIALIST LAB BLOOD ORDERABLES Final Res ult Performing Organization Address City/[facility]/ZIP Co de Phone Number [facility] [address] [place] [address] * SEND JOCELYNE MESSAGE (06/16/2024 8:21 PM EDT) Urine Urine specimen obtained by clean catch procedure / Unknown Non-blood Collection / Unknown 06/16/2024 8:21 PM EDT 06/16/2024 8:26 PM EDT us Trinity S Yousif ACCOUNTS RECEIVABLE SPECIALIST LAB URINE ORDERABLES Final Res ult Performing Organization Address [facility] [place] [address] * Urine Culture (06/16/2024 8:21 PM EDT) Culture <10,000 CFU/mL Mixed urogenital, fecal, or skin quincy present. 06/18/2024 10:03 AM EDT [facility] Urine Urine specimen obtained by clean catch procedure / Unknown Non-blood Collection / Unknown 06/16/2024 8:21 PM EDT 06/16/2024 8:26 PM EDT us Trinity S Yousif ACCOUNTS RECEIVABLE SPECIALIST LAB MICROBIOLOGY - GENERAL ORD ERABLES Final Result Performing Organization Address [facility] [place] [address] * Urinalysis Microscopic Examination (06/16/2024 8:21 PM EDT) Urine Urine specimen obtained by clean catch procedure / Unknown Non-blood Collection / Unknown 06/16/2024 8:21 PM EDT 06/16/2024 8:26 PM EDT us Trinity S Yousif ACCOUNTS RECEIVABLE SPECIALIST LAB URINE ORDERABLES Final Res ult Performing Organization Address City/[facility]/ZIP Co de Phone Number [facility] [address] [place] [address] * Urine Francis Panel (06/16/2024 8:21 PM EDT) Extra Sent for Culture 06/16/2024 10:02 PM EDT [facility] Urine Urine specimen obtained by clean catch procedure / Unknown Non-blood Collection / Unknown 06/16/2024 8:21 PM EDT 06/16/2024 8:26 PM EDT us Trinity Yousif APRN LAB URINE ORDERABLES Final Res ult [facility] [address] [place] [address] * (ABNORMAL) Urinalysis with reflex microscopic (Culture NOT Included) (06/16/2024 8:21 PM EDT) Color, Urine Yellow LAB URINALYSIS - AUTOMATED METHOD 06/16/2024 8:55 PM EDT [facility] Clarity, Urine Clear LAB URINALYSIS - AUTOMATED METHOD 06/16/2024 8:55 PM EDT [facility] Spec [place], Urine 1.013 1.005 - 1.030 LAB URINALYSIS - AUTOMATED METHOD 06/16/2024 8:55 PM EDT [facility] pH, Urine 6.0 5.0 - 8.0 LAB URINALYSIS - AUTOMATED METHOD 06/16/2024 8:55 PM EDT [facility] Protein, Urine Negative Negative mg/dL LAB URINALYSIS - AUTOMATED METHOD 06/16/2024 8:55 PM EDT [facility] Glucose, Urine Negative Negative mg/dL LAB URINALYSIS - AUTOMATED METHOD 06/16/2024 8:55 PM EDT [facility] Ketones, Urine Negative Negative mg/dL LAB URINALYSIS - AUTOMATED METHOD 06/16/2024 8:55 PM EDT [facility] Blood, Urine Negative Negative LAB URINALYSIS - AUTOMATED METHOD 06/16/2024 8:55 PM EDT [facility] Bilirubin, Urine Negative Negative LAB URINALYSIS - AUTOMATED METHOD 06/16/2024 8:55 PM EDT [facility] Urobilinogen, Urine 0.2 0.2 to 1.0 mg/dL LAB URINALYSIS - AUTOMATED METHOD 06/16/2024 8:55 PM EDT [facility] Leukocytes, Urine Large(A) Negative LAB URINALYSIS - AUTOMATED METHOD 06/16/2024 8:55 PM EDT [facility] Nitrite, Urine Negative Negative LAB URINALYSIS - AUTOMATED METHOD 06/16/2024 8:55 PM EDT [facility] RBC, Urine 2 0 to 3 /HPF LAB URINALYSIS - AUTOMATED METHOD 06/16/2024 8:55 PM EDT [facility] WBC, Urine >50(A) 0 to 5 /HPF LAB URINALYSIS - AUTOMATED METHOD 06/16/2024 8:55 PM EDT [facility] Squamous Epithelial Cells 11 - 20(A) 0 to 5 /HPF LAB URINALYSIS - AUTOMATED METHOD 06/16/2024 8:55 PM EDT [facility] Hyaline Casts 0 - 2 0 to 5 /LPF LAB URINALYSIS - AUTOMATED METHOD 06/16/2024 8:55 PM EDT [facility] Bacteria, Urine Present Negative LAB URINALYSIS - AUTOMATED METHOD 06/16/2024 8:55 PM EDT [facility] Renal Tubular Cells Present Absent 06/16/2024 8:55 PM EDT [facility] Transitional Epithelial Cells Present Absent 06/16/2024 8:55 PM EDT [facility] Yeast (Budding and/or Pseudohyphae) Present(A) Absent 06/16/2024 8:55 PM EDT [facility] Urine Urine specimen obtained by clean catch procedure / Unknown Non-blood Collection / Unknown 06/16/2024 8:21 PM EDT 06/16/2024 8:26 PM EDT Narrative [facility] - 06/16/2024 8:55 PM EDT Performed by manual method us Trinity Yousif APRN LAB URINE ORDERABLES Final Res ult [facility] [address] [place] [address] * Magnesium (06/16/2024 4:07 AM EDT) Magnesium, Plasma 2.0 1.9 - 2.4 mg/dL 06/16/2024 4:59 AM EDT [facility] Blood Venous blood specimen / Unknown Venipuncture / Unknown 06/16/2024 4:07 AM EDT 06/16/2024 4:29 AM EDT us Trinity Anne Benja ACCOUNTS RECEIVABLE SPECIALIST LAB BLOOD ORDERABLES Final Res ult [facility] [address] [place] [address] * (ABNORMAL) Comprehensive metabolic panel (06/16/2024 4:07 AM EDT) Glucose, Plasma 93 74 - 99 mg/dL 06/16/2024 4:59 AM EDT [facility] BUN, Plasma 7 7 - 21 mg/dL 06/16/2024 4:59 AM EDT [facility] Creatinine, Plasma 0.57(L) 0.60 - 1.10 mg/dL 06/16/2024 4:59 AM EDT [facility] BUN/Creatinine Ratio 12 06/16/2024 4:59 AM EDT [facility] Sodium, Plasma 134(L) 136 - 145 mmol/L 06/16/2024 4:59 AM EDT [facility] Potassium, Plasma 3.6 3.6 - 4.9 mmol/L 06/16/2024 4:59 AM EDT [facility] Chloride, Plasma 98 97 - 107 mmol/L 06/16/2024 4:59 AM EDT [facility] CO2, Plasma 26 22 - 29 mmol/L 06/16/2024 4:59 AM EDT [facility] Anion Gap 10 6 - 16 mmol/L 06/16/2024 4:59 AM EDT [facility] Total Calcium, Plasma 7.9(L) 8.9 - 10.2 mg/dL 06/16/2024 4:59 AM EDT [facility] Total Protein 6.6 6.3 - 7.9 g/dL 06/16/2024 4:59 AM EDT [facility] Albumin, Plasma 2.5(L) 3.5 - 5.2 g/dL 06/16/2024 4:59 AM EDT [facility] AST, Plasma 37(H) 10 - 35 U/L 06/16/2024 4:59 AM EDT [facility] ALT, Plasma 55(H) 10 - 35 U/L 06/16/2024 4:59 AM EDT [facility] Alkaline Phosphatase, Plasma 170(H) 35 - 104 U/L 06/16/2024 4:59 AM EDT [facility] Total Bilirubin, Plasma 0.3 0.2 - 1.1 mg/dL 06/16/2024 4:59 AM EDT [facility] eGFRcr 108.1 mL/min/1.7 3m*2 06/16/2024 4:59 AM EDT [facility] Comment:Reported eGFRcr in m L/min/1.73m2 is based the CKD-EPI 2020 equation that does not use a race coefficient. Blood Venous blood specimen / Unknown Venipuncture / Unknown 06/16/2024 4:07 AM EDT 06/16/2024 4:29 AM EDT us Trinity Yousif ACCOUNTS RECEIVABLE SPECIALIST LAB BLOOD ORDERABLES Final Res ult [facility] [address] [place] [address] * (ABNORMAL) Hemogram (CBC) (06/16/2024 4:07 AM EDT) WBC Count 9.35 3.70 - 10.30 10*3/uL LAB HEMATOLOGY METHOD 06/16/2024 4:37 AM EDT [facility] RBC Count 3.36(L) 3.90 - 5.20 10*6/uL LAB HEMATOLOGY METHOD 06/16/2024 4:37 AM EDT [facility] HGB 10.2(L) 11.2 - 15.7 g/dL LAB HEMATOLOGY METHOD 06/16/2024 4:37 AM EDT [facility] HCT 30.1(L) 34.0 - 45.0 % LAB HEMATOLOGY METHOD 06/16/2024 4:37 AM EDT [facility] Platelet Count 470(H) 155 - 369 10*3/uL LAB HEMATOLOGY METHOD 06/16/2024 4:37 AM EDT [facility] MCV 90 79 - 98 fL LAB HEMATOLOGY METHOD 06/16/2024 4:37 AM EDT [facility] MCH 30.4 26.0 - 32.0 pg LAB HEMATOLOGY METHOD 06/16/2024 4:37 AM EDT [facility] MCHC 33.9 30.7 - 35.5 g/dL LAB HEMATOLOGY METHOD 06/16/2024 4:37 AM EDT [facility] RDW 14.9(H) 11.5 - 14.5 % LAB HEMATOLOGY METHOD 06/16/2024 4:37 AM EDT [facility] MPV 9.0 8.8 - 12.5 fL LAB HEMATOLOGY METHOD 06/16/2024 4:37 AM EDT [facility] nRBC 0.0 <=0.0 per 100 WBCs LAB HEMATOLOGY METHOD 06/16/2024 4:37 AM EDT [facility] Blood Venous blood specimen / Unknown Venipuncture / Unknown 06/16/2024 4:07 AM EDT 06/16/2024 4:28 AM EDT us Trinity Yousif ACCOUNTS RECEIVABLE SPECIALIST LAB BLOOD ORDERABLES Final Res ult [facility] [address] [place] [address] * XR Hip Right 2 or 3 [...] Powers MD on 06/15/2024 10:23 AM Trinity Yousif ACCOUNTS RECEIVABLE SPECIALIST IMG XR PROCEDURES Final Result * XR [...] Pb Yadav MD on 06/15/2024 10:38 AM us Trinity Yousif APRN IMG XR PROCEDURES Final Result * (ABNORMAL) Prealbumin (06/15/2024 4:49 AM EDT) Prealbumin, Plasma 13.3(L) 20.0 - 41.0 mg/dL 06/15/2024 8:27 AM EDT [facility] Blood Venous blood specimen / Unknown Venipuncture / Unknown 06/15/2024 4:49 AM EDT 06/15/2024 5:28 AM EDT us Trinity Yousif APRN LAB BLOOD ORDERABLES Final Res ult [facility] [address] [place] [address] * (ABNORMAL) Magnesium (06/15/2024 4:49 AM EDT) Magnesium, Plasma 1.4(L) 1.9 - 2.4 mg/dL 06/15/2024 6:00 AM EDT [facility] Blood Venous blood specimen / Unknown Venipuncture / Unknown 06/15/2024 4:49 AM EDT 06/15/2024 5:28 AM EDT us Uriah PHILLIP LAB BLOOD ORDERABLES Final Result [facility] [address] [place] [address] * (ABNORMAL) Comprehensive metabolic panel (06/15/2024 4:49 AM EDT) Glucose, Plasma 100(H) 74 - 99 mg/dL 06/15/2024 6:00 AM EDT [facility] BUN, Plasma 10 7 - 21 mg/dL 06/15/2024 6:00 AM EDT [facility] Creatinine, Plasma 0.58(L) 0.60 - 1.10 mg/dL 06/15/2024 6:00 AM EDT [facility] BUN/Creatinine Ratio 17 06/15/2024 6:00 AM EDT [facility] Sodium, Plasma 128(L) 136 - 145 mmol/L 06/15/2024 6:00 AM EDT [facility] Potassium, Plasma 3.8 3.6 - 4.9 mmol/L 06/15/2024 6:00 AM EDT [facility] Chloride, Plasma 95(L) 97 - 107 mmol/L 06/15/2024 6:00 AM EDT [facility] CO2, Plasma 25 22 - 29 mmol/L 06/15/2024 6:00 AM EDT [facility] Anion Gap 8 6 - 16 mmol/L 06/15/2024 6:00 AM EDT [facility] Total Calcium, Plasma 8.0(L) 8.9 - 10.2 mg/dL 06/15/2024 6:00 AM EDT [facility] Total Protein 6.4 6.3 - 7.9 g/dL 06/15/2024 6:00 AM EDT [facility] Albumin, Plasma 2.5(L) 3.5 - 5.2 g/dL 06/15/2024 6:00 AM EDT [facility] AST, Plasma 32 10 - 35 U/L 06/15/2024 6:00 AM EDT [facility] ALT, Plasma 59(H) 10 - 35 U/L 06/15/2024 6:00 AM EDT [facility] Alkaline Phosphatase, Plasma 181(H) 35 - 104 U/L 06/15/2024 6:00 AM EDT [facility] Total Bilirubin, Plasma 0.3 0.2 - 1.1 mg/dL 06/15/2024 6:00 AM EDT [facility] eGFRcr 107.7 mL/min/1.7 3m*2 06/15/2024 6:00 AM EDT [facility] Comment:Reported eGFRcr in m L/min/1.73m2 is based the CKD-EPI 2020 equation that does not use a race coefficient. Blood Venous blood specimen / Unknown Venipuncture / Unknown 06/15/2024 4:49 AM EDT 06/15/2024 5:28 AM EDT Uriah PHILLIP LAB BLOOD ORDERABLES Final Result [facility] [address] [place] [address] * (ABNORMAL) CBC W/O Differential (06/15/2024 4:49 AM EDT) WBC Count 15.65(H) 3.70 - 10.30 10*3/uL LAB HEMATOLOGY METHOD 06/15/2024 5:40 AM EDT [facility] RBC Count 3.49(L) 3.90 - 5.20 10*6/uL LAB HEMATOLOGY METHOD 06/15/2024 5:40 AM EDT [facility] HGB 10.3(L) 11.2 - 15.7 g/dL LAB HEMATOLOGY METHOD 06/15/2024 5:40 AM EDT [facility] HCT 31.8(L) 34.0 - 45.0 % LAB HEMATOLOGY METHOD 06/15/2024 5:40 AM EDT [facility] Platelet Count 437(H) 155 - 369 10*3/uL LAB HEMATOLOGY METHOD 06/15/2024 5:40 AM EDT [facility] MCV 91 79 - 98 fL LAB HEMATOLOGY METHOD 06/15/2024 5:40 AM EDT [facility] MCH 29.5 26.0 - 32.0 pg LAB HEMATOLOGY METHOD 06/15/2024 5:40 AM EDT [facility] MCHC 32.4 30.7 - 35.5 g/dL LAB HEMATOLOGY METHOD 06/15/2024 5:40 AM EDT [facility] RDW 15.0(H) 11.5 - 14.5 % LAB HEMATOLOGY METHOD 06/15/2024 5:40 AM EDT [facility] MPV 9.3 8.8 - 12.5 fL LAB HEMATOLOGY METHOD 06/15/2024 5:40 AM EDT [facility] nRBC 0.0 <=0.0 per 100 WBCs LAB HEMATOLOGY METHOD 06/15/2024 5:40 AM EDT [facility] Blood Venous blood specimen / Unknown Venipuncture / Unknown 06/15/2024 4:49 AM EDT 06/15/2024 5:33 AM EDT Uriah PHILLIP LAB BLOOD ORDERABLES Final Result Performing Organization Address City/State/[facility] Co de Phone Number [facility] [address] [place] [address] * CT Head wo IV Contrast (06/14/2024 [...] MD on 06/15/2024 8:12 AM Uriah PHILLIP IMG CT PROCEDURES Final Res ult * (ABNORMAL) Blood gas panel, venous (06/14/2024 12:58 AM EDT) pH, Venous 7.42 7.32 - 7.43 LAB HEMATOLOGY METHOD 06/14/2024 1:14 AM EDT [facility] pCO2, Venous 46 37 - 52 mmHg LAB HEMATOLOGY METHOD 06/14/2024 1:14 AM EDT [facility] pO2, Venous 36 25 - 40 mmHg LAB HEMATOLOGY METHOD 06/14/2024 1:14 AM EDT [facility] SO2, Measured, Venous 66 65 - 80 % LAB HEMATOLOGY METHOD 06/14/2024 1:14 AM EDT [facility] Base Excess, Venous 4.7(H) -2.0 - 3.0 mmol/L LAB HEMATOLOGY METHOD 06/14/2024 1:14 AM EDT [facility] Bicarbonate, Calculated, Venous 30(H) 22 - 26 mmol/L LAB HEMATOLOGY METHOD 06/14/2024 1:14 AM EDT [facility] Hematocrit, Whole Blood 33.3(L) 34.0 - 45.0 % LAB HEMATOLOGY METHOD 06/14/2024 1:14 AM EDT [facility] Sodium, Whole Blood 129(L) 136 - 145 mmol/L LAB HEMATOLOGY METHOD 06/14/2024 1:14 AM EDT [facility] Potassium, Whole Blood 3.6 3.6 - 4.9 mmol/L LAB HEMATOLOGY METHOD 06/14/2024 1:14 AM EDT [facility] Chloride, Whole Blood 93(L) 97 - 107 mmol/L LAB HEMATOLOGY METHOD 06/14/2024 1:14 AM EDT [facility] Glucose, Whole Blood 106(H) 74 - 99 mg/dL LAB HEMATOLOGY METHOD 06/14/2024 1:14 AM EDT [facility] Lactate, Venous, Whole Blood 0.7 0.5 - 2.2 mmol/L LAB HEMATOLOGY METHOD 06/14/2024 1:14 AM EDT [facility] Ionized Calcium, Whole Blood 4.6 4.6 - 5.1 mg/dL LAB HEMATOLOGY METHOD 06/14/2024 1:14 AM EDT [facility] Blood Venous blood specimen / Unknown (Central Line) Existing Catheter / Unknown 06/14/2024 12:58 AM EDT 06/14/2024 1:13 AM EDT Maite Austin MD LAB BLOOD ORDERABLES Final Resu lt [facility] [address] [place] [address] * (ABNORMAL) CBC W/O Differential (06/14/2024 12:58 AM EDT) WBC Count 21.20(H) 3.70 - 10.30 10*3/uL LAB HEMATOLOGY METHOD 06/14/2024 1:21 AM EDT [facility] RBC Count 3.79(L) 3.90 - 5.20 10*6/uL LAB HEMATOLOGY METHOD 06/14/2024 1:21 AM EDT [facility] HGB 11.1(L) 11.2 - 15.7 g/dL LAB HEMATOLOGY METHOD 06/14/2024 1:21 AM EDT [facility] HCT 33.6(L) 34.0 - 45.0 % LAB HEMATOLOGY METHOD 06/14/2024 1:21 AM EDT [facility] Platelet Count 433(H) 155 - 369 10*3/uL LAB HEMATOLOGY METHOD 06/14/2024 1:21 AM EDT [facility] MCV 89 79 - 98 fL LAB HEMATOLOGY METHOD 06/14/2024 1:21 AM EDT [facility] MCH 29.3 26.0 - 32.0 pg LAB HEMATOLOGY METHOD 06/14/2024 1:21 AM EDT [facility] MCHC 33.0 30.7 - 35.5 g/dL LAB HEMATOLOGY METHOD 06/14/2024 1:21 AM EDT [facility] RDW 14.8(H) 11.5 - 14.5 % LAB HEMATOLOGY METHOD 06/14/2024 1:21 AM EDT [facility] MPV 8.9 8.8 - 12.5 fL LAB HEMATOLOGY METHOD 06/14/2024 1:21 AM EDT [facility] nRBC 0.0 <=0.0 per 100 WBCs LAB HEMATOLOGY METHOD 06/14/2024 1:21 AM EDT [facility] Blood Blood sample taken from central line / Unknown (Central Line) Existing Catheter / Unknown 06/14/2024 12:58 AM EDT 06/14/2024 1:13 AM EDT us Uriah [facility]ILL[facility] LAB BLOOD ORDERABLES Final Result [facility] [address] [place] [address] * (ABNORMAL) Comprehensive metabolic panel (06/14/2024 12:58 AM EDT) Glucose, Plasma 105(H) 74 - 99 mg/dL 06/14/2024 1:43 AM EDT [facility] BUN, Plasma 13 7 - 21 mg/dL 06/14/2024 1:43 AM EDT [facility] Creatinine, Plasma 0.51(L) 0.60 - 1.10 mg/dL 06/14/2024 1:43 AM EDT [facility] BUN/Creatinine Ratio 25 06/14/2024 1:43 AM EDT [facility] Sodium, Plasma 130(L) 136 - 145 mmol/L 06/14/2024 1:43 AM EDT [facility] Potassium, Plasma 3.7 3.6 - 4.9 mmol/L 06/14/2024 1:43 AM EDT [facility] Chloride, Plasma 94(L) 97 - 107 mmol/L 06/14/2024 1:43 AM EDT [facility] CO2, Plasma 26 22 - 29 mmol/L 06/14/2024 1:43 AM EDT [facility] Anion Gap 10 6 - 16 mmol/L 06/14/2024 1:43 AM EDT [facility] Total Calcium, Plasma 8.5(L) 8.9 - 10.2 mg/dL 06/14/2024 1:43 AM EDT [facility] Total Protein 7.0 6.3 - 7.9 g/dL 06/14/2024 1:43 AM EDT [facility] Albumin, Plasma 2.7(L) 3.5 - 5.2 g/dL 06/14/2024 1:43 AM EDT [facility] AST, Plasma 36(H) 10 - 35 U/L 06/14/2024 1:43 AM EDT [facility] ALT, Plasma 79(H) 10 - 35 U/L 06/14/2024 1:43 AM EDT [facility] Alkaline Phosphatase, Plasma 216(H) 35 - 104 U/L 06/14/2024 1:43 AM EDT [facility] Total Bilirubin, Plasma 0.3 0.2 - 1.1 mg/dL 06/14/2024 1:43 AM EDT [facility] eGFRcr 111.1 mL/min/1.7 3m*2 06/14/2024 1:43 AM EDT [facility] Comment:Reported eGFRcr in m L/min/1.73m2 is based the CKD-EPI 2020 equation that does not use a race coefficient. Blood Blood sample taken from central line / Unknown (Central Line) Existing Catheter / Unknown 06/14/2024 12:58 AM EDT 06/14/2024 1:13 AM EDT us Uriah PHILLIP LAB BLOOD ORDERABLES Final Result Performing Organization Address City/[facility]/ZIP Co de Phone Number [facility] [address] [place] [address] * (ABNORMAL) Magnesium (06/14/2024 12:58 AM EDT) Magnesium, Plasma 1.5(L) 1.9 - 2.4 mg/dL 06/14/2024 1:43 AM EDT [facility] Blood Blood sample taken from central line / Unknown (Central Line) Existing Catheter / Unknown 06/14/2024 12:58 AM EDT 06/14/2024 1:13 AM EDT us Trinity Yousif APRN LAB BLOOD ORDERABLES Final Res ult [facility] [address] [place] [address] * (ABNORMAL) CBC W/O Differential (06/13/2024 12:40 AM EDT) WBC Count 14.79(H) 3.70 - 10.30 10*3/uL LAB HEMATOLOGY METHOD 06/13/2024 1:03 AM EDT [facility] RBC Count 3.35(L) 3.90 - 5.20 10*6/uL LAB HEMATOLOGY METHOD 06/13/2024 1:03 AM EDT [facility] HGB 9.8(L) 11.2 - 15.7 g/dL LAB HEMATOLOGY METHOD 06/13/2024 1:03 AM EDT [facility] HCT 30.5(L) 34.0 - 45.0 % LAB HEMATOLOGY METHOD 06/13/2024 1:03 AM EDT [facility] Platelet Count 409(H) 155 - 369 10*3/uL LAB HEMATOLOGY METHOD 06/13/2024 1:03 AM EDT [facility] MCV 91 79 - 98 fL LAB HEMATOLOGY METHOD 06/13/2024 1:03 AM EDT [facility] MCH 29.3 26.0 - 32.0 pg LAB HEMATOLOGY METHOD 06/13/2024 1:03 AM EDT [facility] MCHC 32.1 30.7 - 35.5 g/dL LAB HEMATOLOGY METHOD 06/13/2024 1:03 AM EDT [facility] RDW 15.0(H) 11.5 - 14.5 % LAB HEMATOLOGY METHOD 06/13/2024 1:03 AM EDT [facility] MPV 9.0 8.8 - 12.5 fL LAB HEMATOLOGY METHOD 06/13/2024 1:03 AM EDT [facility] nRBC 0.0 <=0.0 per 100 WBCs LAB HEMATOLOGY METHOD 06/13/2024 1:03 AM EDT [facility] Blood Blood sample taken from central line / Unknown (Central Line) Existing Catheter / Unknown 06/13/2024 12:40 AM EDT 06/13/2024 12:54 AM EDT us Uriah PHILLIP LAB BLOOD ORDERABLES Final Result [facility] [address] [place] [address] * (ABNORMAL) Comprehensive metabolic panel (06/13/2024 12:40 AM EDT) Pathologist [facility] Glucose, Plasma 106(H) 74 - 99 mg/dL 06/13/2024 1:31 AM EDT [facility] BUN, Plasma 6(L) 7 - 21 mg/dL 06/13/2024 1:31 AM EDT [facility] Creatinine, Plasma 0.54(L) 0.60 - 1.10 mg/dL 06/13/2024 1:31 AM EDT [facility] BUN/Creatinine Ratio 11 06/13/2024 1:31 AM EDT [facility] Sodium, Plasma 131(L) 136 - 145 mmol/L 06/13/2024 1:31 AM EDT [facility] Potassium, Plasma 4.0 3.6 - 4.9 mmol/L 06/13/2024 1:31 AM EDT [facility] Chloride, Plasma 96(L) 97 - 107 mmol/L 06/13/2024 1:31 AM EDT [facility] CO2, Plasma 25 22 - 29 mmol/L 06/13/2024 1:31 AM EDT [facility] Anion Gap 10 6 - 16 mmol/L 06/13/2024 1:31 AM EDT [facility] Total Calcium, Plasma 8.0(L) 8.9 - 10.2 mg/dL 06/13/2024 1:31 AM EDT [facility] Total Protein 6.5 6.3 - 7.9 g/dL 06/13/2024 1:31 AM EDT [facility] Albumin, Plasma 2.6(L) 3.5 - 5.2 g/dL 06/13/2024 1:31 AM EDT [facility] AST, Plasma 52(H) 10 - 35 U/L 06/13/2024 1:31 AM EDT [facility] ALT, Plasma 99(H) 10 - 35 U/L 06/13/2024 1:31 AM EDT [facility] Alkaline Phosphatase, Plasma 212(H) 35 - 104 U/L 06/13/2024 1:31 AM EDT [facility] Total Bilirubin, Plasma 0.3 0.2 - 1.1 mg/dL 06/13/2024 1:31 AM EDT [facility] eGFRcr 109.6 mL/min/1.7 3m*2 06/13/2024 1:31 AM EDT [facility] Comment:Reported eGFRcr in m L/min/1.73m2 is based the CKD-EPI 2020 equation that does not use a race coefficient. Blood Blood sample taken from central line / Unknown (Central Line) Existing Catheter / Unknown 06/13/2024 12:40 AM EDT 06/13/2024 12:53 AM EDT Uriah PHILLIP LAB BLOOD ORDERABLES Final Result [facility] [address] [place] [address] * (ABNORMAL) CBC and differential (06/12/2024 3:24 AM EDT) WBC Count 10.53(H) 3.70 - 10.30 10*3/uL LAB HEMATOLOGY METHOD 06/12/2024 3:43 AM EDT [facility] RBC Count 3.17(L) 3.90 - 5.20 10*6/uL LAB HEMATOLOGY METHOD 06/12/2024 3:43 AM EDT [facility] HGB 9.3(L) 11.2 - 15.7 g/dL LAB HEMATOLOGY METHOD 06/12/2024 3:43 AM EDT [facility] HCT 29.4(L) 34.0 - 45.0 % LAB HEMATOLOGY METHOD 06/12/2024 3:43 AM EDT [facility] Platelet Count 393(H) 155 - 369 10*3/uL LAB HEMATOLOGY METHOD 06/12/2024 3:43 AM EDT [facility] MCV 93 79 - 98 fL LAB HEMATOLOGY METHOD 06/12/2024 3:43 AM EDT [facility] MCH 29.3 26.0 - 32.0 pg LAB HEMATOLOGY METHOD 06/12/2024 3:43 AM EDT [facility] MCHC 31.6 30.7 - 35.5 g/dL LAB HEMATOLOGY METHOD 06/12/2024 3:43 AM EDT [facility] RDW 15.2(H) 11.5 - 14.5 % LAB HEMATOLOGY METHOD 06/12/2024 3:43 AM EDT [facility] MPV 9.1 8.8 - 12.5 fL LAB HEMATOLOGY METHOD 06/12/2024 3:43 AM EDT [facility] nRBC 0.0 <=0.0 per 100 WBCs LAB HEMATOLOGY METHOD 06/12/2024 3:43 AM EDT [facility] Differential Type Automated LAB HEMATOLOGY METHOD 06/12/2024 3:43 AM EDT [facility] Neutrophils % 54 % LAB HEMATOLOGY METHOD 06/12/2024 3:43 AM EDT [facility] Lymphocytes % 28 % LAB HEMATOLOGY METHOD 06/12/2024 3:43 AM EDT [facility] Monocytes % 11 % LAB HEMATOLOGY METHOD 06/12/2024 3:43 AM EDT [facility] Eosinophils % 2 % LAB HEMATOLOGY METHOD 06/12/2024 3:43 AM EDT [facility] Basophils % 1 % LAB HEMATOLOGY METHOD 06/12/2024 3:43 AM EDT [facility] Immature Granulocytes % 4 % LAB HEMATOLOGY METHOD 06/12/2024 3:43 AM EDT [facility] Neutrophils Absolute 5.65 1.60 - 6.10 10*3/uL LAB HEMATOLOGY METHOD 06/12/2024 3:43 AM EDT [facility] Lymphocytes Absolute 2.99 1.20 - 3.90 10*3/uL LAB HEMATOLOGY METHOD 06/12/2024 3:43 AM EDT [facility] Monocytes Absolute 1.11(H) 0.30 - 0.90 10*3/uL LAB HEMATOLOGY METHOD 06/12/2024 3:43 AM EDT [facility] Eosinophils Absolute 0.25 0.00 - 0.50 10*3/uL LAB HEMATOLOGY METHOD 06/12/2024 3:43 AM EDT [facility] Basophils Absolute 0.13(H) 0.00 - 0.10 10*3/uL LAB HEMATOLOGY METHOD 06/12/2024 3:43 AM EDT [facility] Immature Granulocytes Absolute 0.40(H) 0.00 - 0.06 10*3/uL LAB HEMATOLOGY METHOD 06/12/2024 3:43 AM EDT [facility] Blood Blood sample taken from central line / Unknown (Central Line) Existing Catheter / Unknown 06/12/2024 3:24 AM EDT 06/12/2024 3:34 AM EDT Narrative [facility] - 06/12/2024 3:43 AM EDT Therapeutic decision making should be based on absolute values, rather than percentages. Uriah PHILLIP LAB BLOOD ORDERABLES Final Result [facility] [address] [place] [address] * (ABNORMAL) Comprehensive metabolic panel (06/12/2024 3:24 AM EDT) Glucose, Plasma 93 74 - 99 mg/dL 06/12/2024 4:01 AM EDT [facility] BUN, Plasma 12 7 - 21 mg/dL 06/12/2024 4:01 AM EDT [facility] Creatinine, Plasma 0.59(L) 0.60 - 1.10 mg/dL 06/12/2024 4:01 AM EDT [facility] BUN/Creatinine Ratio 20 06/12/2024 4:01 AM EDT [facility] Sodium, Plasma 129(L) 136 - 145 mmol/L 06/12/2024 4:01 AM EDT [facility] Potassium, Plasma 3.8 3.6 - 4.9 mmol/L 06/12/2024 4:01 AM EDT [facility] Chloride, Plasma 95(L) 97 - 107 mmol/L 06/12/2024 4:01 AM EDT [facility] CO2, Plasma 27 22 - 29 mmol/L 06/12/2024 4:01 AM EDT [facility] Anion Gap 7 6 - 16 mmol/L 06/12/2024 4:01 AM EDT [facility] Total Calcium, Plasma 8.1(L) 8.9 - 10.2 mg/dL 06/12/2024 4:01 AM EDT [facility] Total Protein 6.3 6.3 - 7.9 g/dL 06/12/2024 4:01 AM EDT [facility] Albumin, Plasma 2.5(L) 3.5 - 5.2 g/dL 06/12/2024 4:01 AM EDT [facility] AST, Plasma 58(H) 10 - 35 U/L 06/12/2024 4:01 AM EDT [facility] ALT, Plasma 106(H) 10 - 35 U/L 06/12/2024 4:01 AM EDT [facility] Alkaline Phosphatase, Plasma 229(H) 35 - 104 U/L 06/12/2024 4:01 AM EDT [facility] Total Bilirubin, Plasma 0.3 0.2 - 1.1 mg/dL 06/12/2024 4:01 AM EDT [facility] eGFRcr 107.3 mL/min/1.7 3m*2 06/12/2024 4:01 AM EDT [facility] Comment:Reported eGFRcr in m L/min/1.73m2 is based the CKD-EPI 2020 equation that does not use a race coefficient. Blood Blood sample taken from central line / Unknown (Central Line) Existing Catheter / Unknown 06/12/2024 3:24 AM EDT 06/12/2024 3:33 AM EDT Uriah PHILLIP LAB BLOOD ORDERABLES Final Result [facility] [address] [place] [address] * XR Abdomen 1 View (06/11/2024 8:34 [...] with the final edited report. Drafted by Mnio Hobbs MD on 06/11/2024 10:05 AM Final [...] Phelps MD on 06/11/2024 10:38 AM Uriah Ricardo PA IMG XR PROCEDURES Final Res ult * (ABNORMAL) WBC Differential (06/11/2024 4:32 AM EDT) Differential Type Automated LAB HEMATOLOGY METHOD 06/11/2024 8:40 AM EDT [facility] Neutrophils % 63 % LAB HEMATOLOGY METHOD 06/11/2024 8:40 AM EDT [facility] Lymphocytes % 23 % LAB HEMATOLOGY METHOD 06/11/2024 8:40 AM EDT [facility] Monocytes % 8 % LAB HEMATOLOGY METHOD 06/11/2024 8:40 AM EDT [facility] Eosinophils % 2 % LAB HEMATOLOGY METHOD 06/11/2024 8:40 AM EDT [facility] Basophils % 1 % LAB HEMATOLOGY METHOD 06/11/2024 8:40 AM EDT [facility] Immature Granulocytes % 3 % LAB HEMATOLOGY METHOD 06/11/2024 8:40 AM EDT [facility] Immature Granulocytes Absolute 0.43(H) 0.00 - 0.06 10*3/uL LAB HEMATOLOGY METHOD 06/11/2024 8:40 AM EDT [facility] Neutrophils Absolute 10.15(H) 1.60 - 6.10 10*3/uL LAB HEMATOLOGY METHOD 06/11/2024 8:40 AM EDT [facility] Lymphocytes Absolute 3.53 1.20 - 3.90 10*3/uL LAB HEMATOLOGY METHOD 06/11/2024 8:40 AM EDT [facility] Monocytes Absolute 1.18(H) 0.30 - 0.90 10*3/uL LAB HEMATOLOGY METHOD 06/11/2024 8:40 AM EDT [facility] Basophils Absolute 0.15(H) 0.00 - 0.10 10*3/uL LAB HEMATOLOGY METHOD 06/11/2024 8:40 AM EDT [facility] Eosinophils Absolute 0.25 0.00 - 0.50 10*3/uL LAB HEMATOLOGY METHOD 06/11/2024 8:40 AM EDT [facility] Blood Venous blood specimen / Unknown 06/11/2024 4:32 AM EDT 06/11/2024 4:32 AM EDT Uriah PHILLIP LAB BLOOD ORDERABLES Final Result Performing Organization Address [facility] Co de Phone Number [facility] [address] [place] [address] * (ABNORMAL) Procalcitonin (06/11/2024 4:32 AM EDT) Procalcitonin, Plasma 0.10(H) <0.09 ng/mL 06/11/2024 8:43 AM EDT [facility] Blood Venous blood specimen / Unknown 06/11/2024 4:32 AM EDT 06/11/2024 4:32 AM EDT Narrative [facility] - 06/11/2024 8:43 AM EDT [...] predict 28 day mortality risk. Please consult [email or web address] for more information. Test performed at [facility], [facility]. Uriah PHILLIP LAB BLOOD ORDERABLES Final Result Performing Organization Address City/[facility]/ZIP Co de Phone Number [facility] [address] [place] [address] * Lavender Top (06/11/2024 4:32 AM EDT) Extra Hold for add-ons 06/11/2024 7:02 AM EDT [facility] Comment:Auto resulted. Blood Venous blood specimen / Unknown 06/11/2024 4:32 AM EDT 06/11/2024 4:32 AM EDT Maite Austin MD LAB BLOOD ORDERABLES Final Resu lt Performing Organization Address [facility]/ZIP Co de Phone Number [facility] [address] [place] [address] * Light Green Top (06/11/2024 4:32 AM EDT) Extra Hold for add-ons 06/11/2024 7:02 AM EDT [facility] Comment:Auto resulted. Blood Venous blood specimen / Unknown 06/11/2024 4:32 AM EDT 06/11/2024 4:32 AM EDT Maite Austin MD LAB BLOOD ORDERABLES Final Resu lt Performing Organization Address [facility] de Phone Number [facility] [address] [place] [address] * POCT glucose meter (06/10/2024 5:56 AM EDT) Pathologist [facility] POCT Glucose 91 74 - 99 mg/dL 06/10/2024 7:29 AM EDT [facility] Comment:Accuracy of [...] 06/10/2024 7:29 AM EDT [facility] C.O.D. Biller ID YakyHilario lovetta 06/10/2024 7:29 AM EDT [facility] Device ID [id number] 06/10/2024 7:29 AM EDT [facility] Specimen Type POC Capillary 06/10/2024 7:29 AM EDT [facility] Blood Capillary blood specimen / Unknown 06/10/2024 5:56 AM EDT 06/10/2024 7:29 AM EDT us Maite Austin MD LAB POINT OF CARE TE ST DOCKED DEVICE UNSOLICITED RESULTS Final Result Performing Organization Address [facility] Co de Phone Number [facility] [address] [place] [address] * POCT glucose meter (06/10/2024 5:09 AM EDT) POCT Glucose 78 74 - 99 mg/dL 06/10/2024 5:10 AM EDT [facility] Comment:Accuracy of a [...] for testing. Comment 06/10/2024 5:10 AM EDT [facility] C.O.D. Biller ID Katelyn Parker 025 5:10 AM EDT [facility] Device ID [id number] 06/10/2024 5:10 AM EDT [facility] Specimen Type POC Capillary 06/10/2024 5:10 AM EDT [facility] Blood Capillary blood specimen / Unknown 06/10/2024 5:09 AM EDT 06/10/2024 5:10 AM EDT us Maite Austin MD LAB POINT OF CARE TE ST DOCKED DEVICE UNSOLICITED RESULTS Final Result Performing Organization Address City/[facility] Co de Phone Number [facility] [address] [place] [address] * (ABNORMAL) Comprehensive Metabolic Panel, Plasma (06/10/2024 4:28 AM EDT) Glucose, Plasma 76 74 - 99 mg/dL 06/10/2024 6:10 AM EDT [facility] BUN, Plasma 9 7 - 21 mg/dL 06/10/2024 6:10 AM EDT [facility] Creatinine, Plasma 0.53(L) 0.60 - 1.10 mg/dL 06/10/2024 6:10 AM EDT [facility] BUN/Creatinine Ratio 17 06/10/2024 6:10 AM EDT [facility] Sodium, Plasma 131(L) 136 - 145 mmol/L 06/10/2024 6:10 AM EDT [facility] Potassium, Plasma 4.1 3.6 - 4.9 mmol/L 06/10/2024 6:10 AM EDT [facility] Chloride, Plasma 97 97 - 107 mmol/L 06/10/2024 6:10 AM EDT [facility] CO2, Plasma 26 22 - 29 mmol/L 06/10/2024 6:10 AM EDT [facility] Anion Gap 8 6 - 16 mmol/L 06/10/2024 6:10 AM EDT [facility] Total Calcium, Plasma 8.4(L) 8.9 - 10.2 mg/dL 06/10/2024 6:10 AM EDT [facility] Total Protein 6.7 6.3 - 7.9 g/dL 06/10/2024 6:10 AM EDT [facility] Albumin, Plasma 2.7(L) 3.5 - 5.2 g/dL 06/10/2024 6:10 AM EDT [facility] AST, Plasma 80(H) 10 - 35 U/L 06/10/2024 6:10 AM EDT [facility] ALT, Plasma 122(H) 10 - 35 U/L 06/10/2024 6:10 AM EDT [facility] Alkaline Phosphatase, Plasma 258(H) 35 - 104 U/L 06/10/2024 6:10 AM EDT [facility] Total Bilirubin, Plasma 0.3 0.2 - 1.1 mg/dL 06/10/2024 6:10 AM EDT [facility] eGFRcr 110.1 mL/min/1.7 3m*2 06/10/2024 6:10 AM EDT [facility] Comment:Reported eGFRcr in m L/min/1.73m2 is based the CKD-EPI 2020 equation that does not use a race coefficient. Blood Venous blood specimen / Unknown Venipuncture / Unknown 06/10/2024 4:28 AM EDT 06/10/2024 5:41 AM EDT Dulce Alamo ACC[employer]S RECEIVABLE SPECIALIST LAB BLOOD ORDERABLES Final R esult [facility] [address] [place] [address] * (ABNORMAL) Magnesium, Plasma (06/10/2024 4:28 AM EDT) Pathologist [facility] Magnesium, Plasma 1.8(L) 1.9 - 2.4 mg/dL 06/10/2024 6:10 AM EDT [facility] Blood Venous blood specimen / Unknown Venipuncture / Unknown 06/10/2024 4:28 AM EDT 06/10/2024 5:41 AM EDT Dulce Alamo ACCOUNTS RECEIVABLE SPECIALIST LAB BLOOD ORDERABLES Final R esult Performing Organization Address City/[facility]/ZIP Co de Phone Number [facility] [address] [place] [address] * (ABNORMAL) CBC W/O Differential (06/10/2024 4:28 AM EDT) [facility] WBC Count 20.16(H) 3.70 - 10.30 10*3/uL LAB HEMATOLOGY METHOD 06/10/2024 5:54 AM EDT [facility] RBC Count 3.43(L) 3.90 - 5.20 10*6/uL LAB HEMATOLOGY METHOD 06/10/2024 5:54 AM EDT [facility] HGB 10.2(L) 11.2 - 15.7 g/dL LAB HEMATOLOGY METHOD 06/10/2024 5:54 AM EDT [facility] HCT 32.0(L) 34.0 - 45.0 % LAB HEMATOLOGY METHOD 06/10/2024 5:54 AM EDT [facility] Platelet Count 478(H) 155 - 369 10*3/uL LAB HEMATOLOGY METHOD 06/10/2024 5:54 AM EDT [facility] MCV 93 79 - 98 fL LAB HEMATOLOGY METHOD 06/10/2024 5:54 AM EDT [facility] MCH 29.7 26.0 - 32.0 pg LAB HEMATOLOGY METHOD 06/10/2024 5:54 AM EDT [facility] MCHC 31.9 30.7 - 35.5 g/dL LAB HEMATOLOGY METHOD 06/10/2024 5:54 AM EDT [facility] RDW 15.6(H) 11.5 - 14.5 % LAB HEMATOLOGY METHOD 06/10/2024 5:54 AM EDT [facility] MPV 9.2 8.8 - 12.5 fL LAB HEMATOLOGY METHOD 06/10/2024 5:54 AM EDT [facility] nRBC 0.0 <=0.0 per 100 WBCs LAB HEMATOLOGY METHOD 06/10/2024 5:54 AM EDT [facility] Blood Venous blood specimen / Unknown Venipuncture / Unknown 06/10/2024 4:28 AM EDT 06/10/2024 5:43 AM EDT us Dulce Alamo ACC[employer]S RECEIVABLE SPECIALIST LAB BLOOD ORDERABLES Final R esult [facility] [address] [place] [address] * POCT glucose meter (06/09/2024 5:22 PM EDT) [facility] POCT Glucose 98 74 - 99 mg/dL [...] Comment 06/09/2024 7:33 PM EDT [facility] C.O.D. Biller ID Ildefonso Urbanoip 7:33 PM EDT [facility] Device ID [id number] 06/09/2024 7:33 PM EDT [facility] Specimen Type POC Capillary 06/09/2024 7:33 PM EDT [facility] Blood Capillary blood specimen / Unknown 06/09/2024 5:22 PM EDT 06/09/2024 7:33 PM EDT us Maite Austin MD LAB POINT OF CARE TE ST DOCKED DEVICE UNSOLICITED RESULTS Final Result Performing Organization Address City/[facility] Co de Phone Number [facility] [address] [place] [address] * (ABNORMAL) POCT glucose meter (06/09/2024 12:19 [...] Comment 06/09/2024 12:22 PM EDT [facility] C.O.D. Biller ID Yonny Urbano 12:22 PM EDT [facility] Device ID [id number] 06/09/2024 12:22 PM EDT [facility] Specimen Type POC Capillary 06/09/2024 12:22 PM EDT [facility] Blood Capillary blood specimen / Unknown 06/09/2024 12:19 PM EDT 06/09/2024 12:22 PM EDT us Maite Austin MD LAB POINT OF CARE TE ST DOCKED DEVICE UNSOLICITED RESULTS Final Result Performing Organization Address City/[facility] Co de Phone Number [facility] [address] [place] [address] * XR Chest 1 View (06/09/2024 6:54 [...] Zahraa Berger MD on 06/09/2024 10:12 AM Dulce Alamo ACCOUNTS RECEIVABLE SPECIALIST IMG XR PROCEDURES Final Resu lt * (ABNORMAL) POCT glucose meter (06/09/2024 6:33 AM EDT) POCT Glucose 124(H) 74 - 99 mg/dL 06/09/2024 6:35 AM EDT [facility] Comment:Accuracy of a glucos e [...] for testing. Comment 06/09/2024 6:35 AM EDT [facility] C.O.D. Biller ID Brooklyn Goldsmith 06/09/2024 6:35 AM EDT [facility] Device ID [id number] 06/09/2024 6:35 AM EDT [facility] Specimen Type POC Capillary 06/09/2024 6:35 AM EDT [facility] Blood Capillary blood specimen / Unknown 06/09/2024 6:33 AM EDT 06/09/2024 6:35 AM EDT us Maite Austin MD LAB POINT OF CARE TE ST DOCKED DEVICE UNSOLICITED RESULTS Final Result Performing Organization Address City/[facility]/ZIP Co de Phone Number [facility] [address] [place] [address] * Magnesium, Plasma (06/09/2024 1:27 AM EDT) Magnesium, Plasma 1.9 1.9 - 2.4 mg/dL 06/09/2024 2:04 AM EDT [facility] Blood Venous blood specimen / Unknown Venipuncture / Unknown 06/09/2024 1:27 AM EDT 06/09/2024 1:35 AM EDT us Dulce Alamo APRN LAB BLOOD ORDERABLES Final R esult Performing Organization Address City/[facility]/ZIP Co de Phone Number [facility] [address] [place] [address] * (ABNORMAL) Basic Metabolic Panel, Plasma (06/09/2024 1:27 AM EDT) Glucose, Plasma 116(H) 74 - 99 mg/dL 06/09/2024 2:04 AM EDT [facility] BUN, Plasma 11 7 - 21 mg/dL 06/09/2024 2:04 AM EDT [facility] Creatinine, Plasma 0.48(L) 0.60 - 1.10 mg/dL 06/09/2024 2:04 AM EDT [facility] BUN/Creatinine Ratio 23 06/09/2024 2:04 AM EDT [facility] Sodium, Plasma 130(L) 136 - 145 mmol/L 06/09/2024 2:04 AM EDT [facility] Potassium, Plasma 4.3 3.6 - 4.9 mmol/L 06/09/2024 2:04 AM EDT [facility] Chloride, Plasma 98 97 - 107 mmol/L 06/09/2024 2:04 AM EDT [facility] CO2, Plasma 26 22 - 29 mmol/L 06/09/2024 2:04 AM EDT [facility] Anion Gap 6 6 - 16 mmol/L 06/09/2024 2:04 AM EDT [facility] Total Calcium, Plasma 7.9(L) 8.9 - 10.2 mg/dL 06/09/2024 2:04 AM EDT [facility] eGFRcr 112.7 mL/min/1.7 3m*2 06/09/2024 2:04 AM EDT [facility] Comment:Reported eGFRcr in m L/min/1.73m2 is based the CKD-EPI 2020 equation that does not use a race coefficient. Blood Venous blood specimen / Unknown Venipuncture / Unknown 06/09/2024 1:27 AM EDT 06/09/2024 1:35 AM EDT us Dulce Alamo APRN LAB BLOOD ORDERABLES Final R esult [facility] [address] [place] [address] * (ABNORMAL) CBC W/O Differential (06/09/2024 1:27 AM EDT) WBC Count 12.12(H) 3.70 - 10.30 10*3/uL LAB HEMATOLOGY METHOD 06/09/2024 1:43 AM EDT [facility] RBC Count 3.23(L) 3.90 - 5.20 10*6/uL LAB HEMATOLOGY METHOD 06/09/2024 1:43 AM EDT [facility] HGB 9.4(L) 11.2 - 15.7 g/dL LAB HEMATOLOGY METHOD 06/09/2024 1:43 AM EDT [facility] HCT 29.9(L) 34.0 - 45.0 % LAB HEMATOLOGY METHOD 06/09/2024 1:43 AM EDT [facility] Platelet Count 471(H) 155 - 369 10*3/uL LAB HEMATOLOGY METHOD 06/09/2024 1:43 AM EDT [facility] MCV 93 79 - 98 fL LAB HEMATOLOGY METHOD 06/09/2024 1:43 AM EDT [facility] MCH 29.1 26.0 - 32.0 pg LAB HEMATOLOGY METHOD 06/09/2024 1:43 AM EDT [facility] MCHC 31.4 30.7 - 35.5 g/dL LAB HEMATOLOGY METHOD 06/09/2024 1:43 AM EDT [facility] RDW 15.7(H) 11.5 - 14.5 % LAB HEMATOLOGY METHOD 06/09/2024 1:43 AM EDT [facility] MPV 9.1 8.8 - 12.5 fL LAB HEMATOLOGY METHOD 06/09/2024 1:43 AM EDT [facility] nRBC 0.0 <=0.0 per 100 WBCs LAB HEMATOLOGY METHOD 06/09/2024 1:43 AM EDT [facility] Blood Venous blood specimen / Unknown Venipuncture / Unknown 06/09/2024 1:27 AM EDT 06/09/2024 1:35 AM EDT us Dulce Alamo APRN LAB BLOOD ORDERABLES Final R esult [facility] [address] [place] [address] * (ABNORMAL) POCT glucose meter (06/08/2024 11:28 PM EDT) POCT Glucose 113(H) 74 - 99 mg/dL 06/08/2024 11:30 PM EDT [facility] Comment:Accuracy of [...] for testing. Comment 06/08/2024 11:30 PM EDT [facility] C.O.D. Biller ID [place] Goldsmith 06/08/2024 11:30 PM EDT [facility] Device ID [id number] 06/08/2024 11:30 PM EDT [facility] Specimen Type POC Capillary 06/08/2024 11:30 PM EDT [facility] Blood Capillary blood specimen / Unknown 06/08/2024 11:28 PM EDT 06/08/2024 11:30 PM EDT us Maite Austin MD LAB POINT OF CARE TE ST DOCKED DEVICE UNSOLICITED RESULTS Final Result Performing Organization Address City/[facility] Co de Phone Number HEALTHCARE LAB [address] [place] [address] * (ABNORMAL) POCT glucose meter (06/08/2024 12:14 PM EDT) POCT Glucose 128(H) 74 - [...] for testing. Comment 06/08/2024 12:15 PM EDT [facility] C.O.D. Biller ID Shira Gutierrez 025 12:15 PM EDT HEALTHCARE LAB Device ID [id number] 06/08/2024 12:15 PM EDT [facility] Specimen Type POC Capillary 06/08/2024 12:15 PM EDT [facility] Blood Capillary blood specimen / Unknown 06/08/2024 12:14 PM EDT 06/08/2024 12:15 PM EDT us Maite Austin MD LAB POINT OF CARE TE ST DOCKED DEVICE UNSOLICITED RESULTS Final Result Performing Organization Address City/[facility] Co de Phone Number [facility]ALTHCARE [facility] [address] [place] [address] * Magnesium, Plasma (06/08/2024 5:44 AM EDT) Magnesium, Plasma 1.9 1.9 - 2.4 mg/dL 06/08/2024 6:25 AM EDT [facility] Blood Venous blood specimen / Unknown Venipuncture / Unknown 06/08/2024 5:44 AM EDT 06/08/2024 5:57 AM EDT us Dulce Alamo APRN LAB BLOOD ORDERABLES Final R esult [facility] [address] [place] [address] * (ABNORMAL) Basic Metabolic Panel, Plasma (06/08/2024 5:44 AM EDT) Glucose, Plasma 114(H) 74 - 99 mg/dL 06/08/2024 6:25 AM EDT [facility] BUN, Plasma 11 7 - 21 mg/dL 06/08/2024 6:25 AM EDT [facility] Creatinine, Plasma 0.46(L) 0.60 - 1.10 mg/dL 06/08/2024 6:25 AM EDT [facility] BUN/Creatinine Ratio 24 06/08/2024 6:25 AM EDT [facility] Sodium, Plasma 133(L) 136 - 145 mmol/L 06/08/2024 6:25 AM EDT [facility] Potassium, Plasma 3.5(L) 3.6 - 4.9 mmol/L 06/08/2024 6:25 AM EDT [facility] Chloride, Plasma 99 97 - 107 mmol/L 06/08/2024 6:25 AM EDT [facility] CO2, Plasma 27 22 - 29 mmol/L 06/08/2024 6:25 AM EDT [facility] Anion Gap 7 6 - 16 mmol/L 06/08/2024 6:25 AM EDT [facility] Total Calcium, Plasma 7.8(L) 8.9 - 10.2 mg/dL 06/08/2024 6:25 AM EDT [facility] eGFRcr 113.9 mL/min/1.7 3m*2 06/08/2024 6:25 AM EDT [facility] Comment:Reported eGFRcr in m L/min/1.73m2 is based the CKD-EPI 2020 equation that does not use a race coefficient. Blood Venous blood specimen / Unknown Venipuncture / Unknown 06/08/2024 5:44 AM EDT 06/08/2024 5:57 AM EDT Dulce Alamo APRN LAB BLOOD ORDERABLES Final R esult [facility] [address] [place] [address] * (ABNORMAL) CBC W/O Differential (06/08/2024 5:44 AM EDT) WBC Count 14.57(H) 3.70 - 10.30 10*3/uL LAB HEMATOLOGY METHOD 06/08/2024 6:07 AM EDT [facility] RBC Count 3.08(L) 3.90 - 5.20 10*6/uL LAB HEMATOLOGY METHOD 06/08/2024 6:07 AM EDT [facility] HGB 9.2(L) 11.2 - 15.7 g/dL LAB HEMATOLOGY METHOD 06/08/2024 6:07 AM EDT [facility] HCT 28.4(L) 34.0 - 45.0 % LAB HEMATOLOGY METHOD 06/08/2024 6:07 AM EDT [facility] Platelet Count 492(H) 155 - 369 10*3/uL LAB HEMATOLOGY METHOD 06/08/2024 6:07 AM EDT [facility] MCV 92 79 - 98 fL LAB HEMATOLOGY METHOD 06/08/2024 6:07 AM EDT [facility] MCH 29.9 26.0 - 32.0 pg LAB HEMATOLOGY METHOD 06/08/2024 6:07 AM EDT [facility] MCHC 32.4 30.7 - 35.5 g/dL LAB HEMATOLOGY METHOD 06/08/2024 6:07 AM EDT [facility] RDW 15.6(H) 11.5 - 14.5 % LAB HEMATOLOGY METHOD 06/08/2024 6:07 AM EDT [facility] MPV 8.9 8.8 - 12.5 fL LAB HEMATOLOGY METHOD 06/08/2024 6:07 AM EDT [facility] nRBC 0.0 <=0.0 per 100 WBCs LAB HEMATOLOGY METHOD 06/08/2024 6:07 AM EDT [facility] Blood Venous blood specimen / Unknown Venipuncture / Unknown 06/08/2024 5:44 AM EDT 06/08/2024 5:58 AM EDT us Dulce Alamo ACCOUNTS RECEIVABLE SPECIALIST LAB BLOOD ORDERABLES Final R esult [facility] [address] [place] [address] * XR Abdomen 1 View (06/08/2024 5:31 [...] Orlando Davenport MD on 06/08/2024 8:01 AM us Dulce Alamo ACCOUNTS RECEIVABLE SPECIALIST IMG XR PROCEDURES Final Resu lt * POCT glucose meter (06/07/2024 5:13 PM EDT) Pathologist [facility] POCT Glucose 97 74 - 99 mg/dL 06/07/2024 5:15 PM EDT [facility]ARE [facility] Comment:Accuracy of a [...] for testing. Comment 06/07/2024 5:15 PM EDT [facility] C.O.D. Biller ID Pamela Tang 06/07/2024 5:15 PM EDT [facility] Device ID [id number] 06/07/2024 5:15 PM EDT [facility]ALTH[facility]ARE LAB Specimen Type POC Capillary 06/07/2024 5:15 PM EDT [facility] Blood Capillary blood specimen / Unknown 06/07/2024 5:13 PM EDT 06/07/2024 5:15 PM EDT us Maite Austin MD LAB POINT OF CARE TE ST DOCKED DEVICE UNSOLICITED RESULTS Final Result [facility] [address] [place] [address] * (ABNORMAL) POCT glucose meter (06/07/2024 2:55 PM EDT) Pathologist [facility] POCT Glucose 117(H) 74 - 99 mg/dL [...] for testing. Comment 06/07/2024 2:56 PM EDT [facility]ARE [facility] C.O.D. Biller ID Pamela Tang 06/07/2024 2:56 PM EDT HEALTH[facility]ARE LAB Device ID [id number] 06/07/2024 2:56 PM EDT [facility]ARE [facility] Specimen Type POC Capillary 06/07/2024 2:56 PM EDT [facility] Blood Capillary blood specimen / Unknown 06/07/2024 2:55 PM EDT 06/07/2024 2:56 PM EDT us Maite Austin MD LAB POINT OF CARE TE ST DOCKED DEVICE UNSOLICITED RESULTS Final Result Performing Organization Address City/[facility] Co de Phone Number HEALTH[facility]ARE [facility] [address] [place] [address] * Magnesium (06/07/2024 6:22 AM EDT) Magnesium, Plasma 1.9 1.9 - 2.4 mg/dL 06/07/2024 6:57 AM EDT [facility] Blood Venous blood specimen / Unknown Venipuncture / Unknown 06/07/2024 6:22 AM EDT 06/07/2024 6:26 AM EDT us Dulce Alamo APRN LAB BLOOD ORDERABLES Final R esult [facility] [address] [place] [address] * (ABNORMAL) Basic Metabolic Panel, Plasma (06/07/2024 6:22 AM EDT) Glucose, Plasma 124(H) 74 - 99 mg/dL 06/07/2024 6:57 AM EDT [facility] BUN, Plasma 13 7 - 21 mg/dL 06/07/2024 6:57 AM EDT [facility] Creatinine, Plasma 0.44(L) 0.60 - 1.10 mg/dL 06/07/2024 6:57 AM EDT [facility] BUN/Creatinine Ratio 30 06/07/2024 6:57 AM EDT [facility] Sodium, Plasma 133(L) 136 - 145 mmol/L 06/07/2024 6:57 AM EDT [facility] Potassium, Plasma 3.7 3.6 - 4.9 mmol/L 06/07/2024 6:57 AM EDT [facility] Chloride, Plasma 99 97 - 107 mmol/L 06/07/2024 6:57 AM EDT [facility] CO2, Plasma 26 22 - 29 mmol/L 06/07/2024 6:57 AM EDT [facility] Anion Gap 8 6 - 16 mmol/L 06/07/2024 6:57 AM EDT [facility] Total Calcium, Plasma 7.8(L) 8.9 - 10.2 mg/dL 06/07/2024 6:57 AM EDT [facility] eGFRcr 115.1 mL/min/1.7 3m*2 06/07/2024 6:57 AM EDT [facility] Comment:Reported eGFRcr in m L/min/1.73m2 is based the CKD-EPI 2020 equation that does not use a race coefficient. Blood Venous blood specimen / Unknown Venipuncture / Unknown 06/07/2024 6:22 AM EDT 06/07/2024 6:26 AM EDT us Dulce Alamo APRN LAB BLOOD ORDERABLES Final R esult [facility] [address] [place] [address] * (ABNORMAL) CBC and Differential (06/07/2024 6:22 AM EDT) WBC Count 16.90(H) 3.70 - 10.30 10*3/uL LAB HEMATOLOGY METHOD 06/07/2024 6:34 AM EDT [facility] RBC Count 3.05(L) 3.90 - 5.20 10*6/uL LAB HEMATOLOGY METHOD 06/07/2024 6:34 AM EDT [facility] HGB 9.0(L) 11.2 - 15.7 g/dL LAB HEMATOLOGY METHOD 06/07/2024 6:34 AM EDT [facility] HCT 28.4(L) 34.0 - 45.0 % LAB HEMATOLOGY METHOD 06/07/2024 6:34 AM EDT [facility] Platelet Count 529(H) 155 - 369 10*3/uL LAB HEMATOLOGY METHOD 06/07/2024 6:34 AM EDT [facility] MCV 93 79 - 98 fL LAB HEMATOLOGY METHOD 06/07/2024 6:34 AM EDT [facility] MCH 29.5 26.0 - 32.0 pg LAB HEMATOLOGY METHOD 06/07/2024 6:34 AM EDT [facility] MCHC 31.7 30.7 - 35.5 g/dL LAB HEMATOLOGY METHOD 06/07/2024 6:34 AM EDT [facility] RDW 15.7(H) 11.5 - 14.5 % LAB HEMATOLOGY METHOD 06/07/2024 6:34 AM EDT [facility] MPV 9.0 8.8 - 12.5 fL LAB HEMATOLOGY METHOD 06/07/2024 6:34 AM EDT [facility] nRBC 0.0 <=0.0 per 100 WBCs LAB HEMATOLOGY METHOD 06/07/2024 6:34 AM EDT [facility] Differential Type Automated LAB HEMATOLOGY METHOD 06/07/2024 6:34 AM EDT [facility] Neutrophils % 75 % LAB HEMATOLOGY METHOD 06/07/2024 6:34 AM EDT [facility] Lymphocytes % 12 % LAB HEMATOLOGY METHOD 06/07/2024 6:34 AM EDT [facility] Monocytes % 8 % LAB HEMATOLOGY METHOD 06/07/2024 6:34 AM EDT [facility] Eosinophils % 1 % LAB HEMATOLOGY METHOD 06/07/2024 6:34 AM EDT [facility] Basophils % 1 % LAB HEMATOLOGY METHOD 06/07/2024 6:34 AM EDT [facility] Immature Granulocytes % 3 % LAB HEMATOLOGY METHOD 06/07/2024 6:34 AM EDT [facility] Neutrophils Absolute 12.84(H) 1.60 - 6.10 10*3/uL LAB HEMATOLOGY METHOD 06/07/2024 6:34 AM EDT [facility] Lymphocytes Absolute 2.01 1.20 - 3.90 10*3/uL LAB HEMATOLOGY METHOD 06/07/2024 6:34 AM EDT [facility] Monocytes Absolute 1.29(H) 0.30 - 0.90 10*3/uL LAB HEMATOLOGY METHOD 06/07/2024 6:34 AM EDT [facility] Eosinophils Absolute 0.14 0.00 - 0.50 10*3/uL LAB HEMATOLOGY METHOD 06/07/2024 6:34 AM EDT [facility] Basophils Absolute 0.14(H) 0.00 - 0.10 10*3/uL LAB HEMATOLOGY METHOD 06/07/2024 6:34 AM EDT [facility] Immature Granulocytes Absolute 0.48(H) 0.00 - 0.06 10*3/uL LAB HEMATOLOGY METHOD 06/07/2024 6:34 AM EDT [facility] Blood Venous blood specimen / Unknown Venipuncture / Unknown 06/07/2024 6:22 AM EDT 06/07/2024 6:26 AM EDT Narrative [facility] - 06/07/2024 6:34 AM EDT Therapeutic decision making should be based on absolute values, rather than percentages. us Dulce Alamo ACCOUNTS RECEIVABLE SPECIALIST LAB BLOOD ORDERABLES Final R esult [facility] [address] [place] [address] * (ABNORMAL) POCT glucose meter (06/06/2024 6:25 PM EDT) POCT Glucose 125(H) 74 - 99 [...] for testing. Comment 06/06/2024 6:27 PM EDT [facility] C.O.D. Biller ID Brooklyn Goldsmith 06/06/2024 6:27 PM EDT [facility] Device ID [id number] 06/06/2024 6:27 PM EDT [facility] Specimen Type POC Capillary 06/06/2024 6:27 PM EDT [facility] Blood Capillary blood specimen / Unknown 06/06/2024 6:25 PM EDT 06/06/2024 6:27 PM EDT Maite Austin MD LAB POINT OF CARE TE ST DOCKED DEVICE UNSOLICITED RESULTS Final Result Performing Organization Address City/[facility] Co de Phone Number HEALTHCARE [facility] [address] [place] [address] * (ABNORMAL) POCT glucose meter (06/06/2024 11:20 [...] for testing. Comment 06/06/2024 11:25 AM EDT [facility] C.O.D. Biller ID Henrry Saenz 11:25 AM EDT [facility]ALTH[facility]ARE LAB Device ID [id number] 06/06/2024 11:25 AM EDT [facility]ALTH[facility]ARE [facility] Specimen Type POC Capillary 06/06/2024 11:25 AM EDT [facility] Blood Capillary blood specimen / Unknown 06/06/2024 11:20 AM EDT 06/06/2024 11:25 AM EDT us Maite Austin MD LAB POINT OF CARE TE ST DOCKED DEVICE UNSOLICITED RESULTS Final Result Performing Organization Address City/[facility] Co de Phone Number [facility]ALTHCARE [facility] [address] [place] [address] * (ABNORMAL) POCT glucose meter (06/06/2024 5:49 [...] Comment 06/06/2024 5:50 AM EDT [facility] C.O.D. Biller ID Ashwin Odom 025 5:50 AM EDT [facility]ALTH[facility]ARE LAB Device ID [id number] 06/06/2024 5:50 AM EDT [facility]ALTH[facility]ARE [facility] Specimen Type POC Capillary 06/06/2024 5:50 AM EDT [facility] Blood Capillary blood specimen / Unknown 06/06/2024 5:49 AM EDT 06/06/2024 5:50 AM EDT us Maite Austin MD LAB POINT OF CARE TE ST DOCKED DEVICE UNSOLICITED RESULTS Final Result Performing Organization Address City/[facility] Co de Phone Number [facility] [address] [place] [address] * N-Terminal Probnp, Plasma (06/06/2024 4:03 AM EDT) N-Terminal, PROBNP, Plasma 566 0 - 899 pg/mL 06/06/2024 5:20 AM EDT [facility] Blood Venous blood specimen / Unknown Venipuncture / Unknown 06/06/2024 4:03 AM EDT 06/06/2024 4:31 AM EDT us Dulce Alamo APRN LAB BLOOD ORDERABLES Final R esult [facility] [address] [place] [address] * Magnesium, Plasma (06/06/2024 4:03 AM EDT) Magnesium, Plasma 2.1 1.9 - 2.4 mg/dL 06/06/2024 5:20 AM EDT [facility] Blood Venous blood specimen / Unknown Venipuncture / Unknown 06/06/2024 4:03 AM EDT 06/06/2024 4:31 AM EDT us Dulce A Cally ACCOUNTS RECEIVABLE SPECIALIST LAB BLOOD ORDERABLES Final R esult [facility] [address] [place] [address] * (ABNORMAL) Basic Metabolic Panel, Plasma (06/06/2024 4:03 AM EDT) Glucose, Plasma 406(H) 74 - 99 mg/dL 06/06/2024 5:20 AM EDT [facility] BUN, Plasma 11 7 - 21 mg/dL 06/06/2024 5:20 AM EDT [facility] Creatinine, Plasma 0.50(L) 0.60 - 1.10 mg/dL 06/06/2024 5:20 AM EDT [facility] BUN/Creatinine Ratio 22 06/06/2024 5:20 AM EDT [facility] Sodium, Plasma 130(L) 136 - 145 mmol/L 06/06/2024 5:20 AM EDT [facility] Potassium, Plasma 4.3 3.6 - 4.9 mmol/L 06/06/2024 5:20 AM EDT [facility] Chloride, Plasma 98 97 - 107 mmol/L 06/06/2024 5:20 AM EDT [facility] CO2, Plasma 23 22 - 29 mmol/L 06/06/2024 5:20 AM EDT [facility] Anion Gap 9 6 - 16 mmol/L 06/06/2024 5:20 AM EDT [facility] Total Calcium, Plasma 7.5(L) 8.9 - 10.2 mg/dL 06/06/2024 5:20 AM EDT [facility] eGFRcr 111.6 mL/min/1.7 3m*2 06/06/2024 5:20 AM EDT [facility] Comment:Reported eGFRcr in m L/min/1.73m2 is based the CKD-EPI 2020 equation that does not use a race coefficient. Blood Venous blood specimen / Unknown Venipuncture / Unknown 06/06/2024 4:03 AM EDT 06/06/2024 4:31 AM EDT us Dulce Alamo APRN LAB BLOOD ORDERABLES Final R esult [facility] [address] [place] [address] * (ABNORMAL) CBC W/O Differential (06/06/2024 4:03 AM EDT) WBC Count 24.98(H) 3.70 - 10.30 10*3/uL LAB HEMATOLOGY METHOD 06/06/2024 4:56 AM EDT [facility] RBC Count 3.12(L) 3.90 - 5.20 10*6/uL LAB HEMATOLOGY METHOD 06/06/2024 4:56 AM EDT [facility] HGB 9.2(L) 11.2 - 15.7 g/dL LAB HEMATOLOGY METHOD 06/06/2024 4:56 AM EDT [facility] HCT 29.5(L) 34.0 - 45.0 % LAB HEMATOLOGY METHOD 06/06/2024 4:56 AM EDT [facility] Platelet Count 605(H) 155 - 369 10*3/uL LAB HEMATOLOGY METHOD 06/06/2024 4:56 AM EDT [facility] MCV 95 79 - 98 fL LAB HEMATOLOGY METHOD 06/06/2024 4:56 AM EDT [facility] MCH 29.5 26.0 - 32.0 pg LAB HEMATOLOGY METHOD 06/06/2024 4:56 AM EDT [facility] MCHC 31.2 30.7 - 35.5 g/dL LAB HEMATOLOGY METHOD 06/06/2024 4:56 AM EDT [facility] RDW 15.8(H) 11.5 - 14.5 % LAB HEMATOLOGY METHOD 06/06/2024 4:56 AM EDT [facility] MPV 9.5 8.8 - 12.5 fL LAB HEMATOLOGY METHOD 06/06/2024 4:56 AM EDT [facility] nRBC 0.0 <=0.0 per 100 WBCs LAB HEMATOLOGY METHOD 06/06/2024 4:56 AM EDT [facility] Blood Venous blood specimen / Unknown Venipuncture / Unknown 06/06/2024 4:03 AM EDT 06/06/2024 4:35 AM EDT us Dulce Alamo APRN LAB BLOOD ORDERABLES Final R esult Performing Organization Address City/[facility]/ZIP Co de Phone Number [facility] [address] [place] [address] * (ABNORMAL) POCT glucose meter (06/05/2024 11:52 [...] Comment 06/05/2024 11:54 PM EDT [facility] C.O.D. Biller ID Dina Willis 11:54 PM EDT [facility]ALTH[facility]ARE LAB Device ID [id number] 06/05/2024 11:54 PM EDT [facility] Specimen Type POC Capillary 06/05/2024 11:54 PM EDT [facility] Blood Capillary blood specimen / Unknown 06/05/2024 11:52 PM EDT 06/05/2024 11:54 PM EDT us Maite Austin MD LAB POINT OF CARE TE ST DOCKED DEVICE UNSOLICITED RESULTS Final Result Performing Organization Address City/[facility]/ZIP Co de Phone Number HEALTHCARE [facility] [address] [place] [address] * XR Abdomen 1 View (06/05/2024 4:12 [...] on 06/05/2024 5:00 PM us Dulce Alamo ACCOUNTS RECEIVABLE SPECIALIST IMG XR PROCEDURES Final Resu lt * (ABNORMAL) POCT glucose meter (06/05/2024 11:59 AM EDT) POCT Glucose 113(H) 74 - 99 mg/dL 06/05/2024 12:01 PM EDT [facility] Comment:Accuracy [...] for testing. Comment 06/05/2024 12:01 PM EDT [facility] C.O.D. Biller ID FerrisIsabel millsn 06/05/2024 12:01 PM EDT [facility] Device ID [id number] 06/05/2024 12:01 PM EDT [facility] Specimen Type POC Capillary 06/05/2024 12:01 PM EDT [facility] Blood Capillary blood specimen / Unknown 06/05/2024 11:59 AM EDT 06/05/2024 12:01 PM EDT us Maite Austin MD LAB POINT OF CARE TE ST DOCKED DEVICE UNSOLICITED RESULTS Final Result Performing Organization Address City/[facility]/ZIP Co de Phone Number [facility] [address] [place] [address] * N-Terminal Probnp, Plasma (06/05/2024 6:12 AM EDT) N-Terminal, PROBNP, Plasma 581 0 - 899 pg/mL 06/05/2024 8:13 AM EDT [facility] Blood Venous blood specimen / Unknown Venipuncture / Unknown 06/05/2024 6:12 AM EDT 06/05/2024 6:45 AM EDT us Dulce Alamo ACCOUNTS RECEIVABLE SPECIALIST LAB BLOOD ORDERABLES Final R esult Performing Organization Address City/[facility] Co de Phone Number [facility] [address] [place] [address] * Magnesium, Plasma (06/05/2024 6:12 AM EDT) Magnesium, Plasma 2.0 1.9 - 2.4 mg/dL 06/05/2024 7:28 AM EDT [facility] Blood Venous blood specimen / Unknown Venipuncture / Unknown 06/05/2024 6:12 AM EDT 06/05/2024 6:45 AM EDT us Shola Sheridan ACCOUNTS RECEIVABLE SPECIALIST LAB BLOOD ORDERABLES Final R esult Performing Organization Address City/[facility]/ZIP Co de Phone Number [facility] [address] [place] [address] * (ABNORMAL) Basic Metabolic Panel, Plasma (06/05/2024 6:12 AM EDT) Glucose, Plasma 125(H) 74 - 99 mg/dL 06/05/2024 7:28 AM EDT [facility] BUN, Plasma 13 7 - 21 mg/dL 06/05/2024 7:28 AM EDT [facility] Creatinine, Plasma 0.50(L) 0.60 - 1.10 mg/dL 06/05/2024 7:28 AM EDT [facility] BUN/Creatinine Ratio 26 06/05/2024 7:28 AM EDT [facility] Sodium, Plasma 133(L) 136 - 145 mmol/L 06/05/2024 7:28 AM EDT [facility] Potassium, Plasma 3.6 3.6 - 4.9 mmol/L 06/05/2024 7:28 AM EDT [facility] Chloride, Plasma 99 97 - 107 mmol/L 06/05/2024 7:28 AM EDT [facility] CO2, Plasma 26 22 - 29 mmol/L 06/05/2024 7:28 AM EDT [facility] Anion Gap 8 6 - 16 mmol/L 06/05/2024 7:28 AM EDT [facility] Total Calcium, Plasma 7.7(L) 8.9 - 10.2 mg/dL 06/05/2024 7:28 AM EDT [facility] eGFRcr 111.6 mL/min/1.7 3m*2 06/05/2024 7:28 AM EDT [facility] Comment:Reported eGFRcr in m L/min/1.73m2 is based the CKD-EPI 2020 equation that does not use a race coefficient. Blood Venous blood specimen / Unknown Venipuncture / Unknown 06/05/2024 6:12 AM EDT 06/05/2024 6:45 AM EDT us Shola Sheridan ACCOUNTS RECEIVABLE SPECIALIST LAB BLOOD ORDERABLES Final R esult [facility] [address] [place] [address] * (ABNORMAL) CBC W/O Differential (06/05/2024 6:12 AM EDT) WBC Count 19.81(H) 3.70 - 10.30 10*3/uL LAB HEMATOLOGY METHOD 06/05/2024 6:53 AM EDT [facility] RBC Count 3.13(L) 3.90 - 5.20 10*6/uL LAB HEMATOLOGY METHOD 06/05/2024 6:53 AM EDT [facility] HGB 9.3(L) 11.2 - 15.7 g/dL LAB HEMATOLOGY METHOD 06/05/2024 6:53 AM EDT [facility] HCT 29.0(L) 34.0 - 45.0 % LAB HEMATOLOGY METHOD 06/05/2024 6:53 AM EDT [facility] Platelet Count 643(H) 155 - 369 10*3/uL LAB HEMATOLOGY METHOD 06/05/2024 6:53 AM EDT [facility] MCV 93 79 - 98 fL LAB HEMATOLOGY METHOD 06/05/2024 6:53 AM EDT [facility] MCH 29.7 26.0 - 32.0 pg LAB HEMATOLOGY METHOD 06/05/2024 6:53 AM EDT [facility] MCHC 32.1 30.7 - 35.5 g/dL LAB HEMATOLOGY METHOD 06/05/2024 6:53 AM EDT [facility] RDW 15.7(H) 11.5 - 14.5 % LAB HEMATOLOGY METHOD 06/05/2024 6:53 AM EDT [facility] MPV 9.1 8.8 - 12.5 fL LAB HEMATOLOGY METHOD 06/05/2024 6:53 AM EDT [facility] nRBC 0.0 <=0.0 per 100 WBCs LAB HEMATOLOGY METHOD 06/05/2024 6:53 AM EDT [facility] Blood Venous blood specimen / Unknown Venipuncture / Unknown 06/05/2024 6:12 AM EDT 06/05/2024 6:45 AM EDT us Shola Sheridan APRN LAB BLOOD ORDERABLES Final R esult [facility] [address] [place] [address] * (ABNORMAL) POCT glucose meter (06/05/2024 6:05 AM EDT) POCT Glucose 132(H) 74 - 99 mg/dL 06/05/2024 6:07 AM EDT [facility] Comment:Accuracy [...] 06/05/2024 6:07 AM EDT [facility] C.O.D. Biller ID Leonarda Londono 6:07 AM EDT [facility] LAB Device ID [id number] 06/05/2024 6:07 AM EDT [facility] Specimen Type POC Capillary 06/05/2024 6:07 AM EDT [facility] Blood Capillary blood specimen / Unknown 06/05/2024 6:05 AM EDT 06/05/2024 6:07 AM EDT Maite Austin MD LAB POINT OF CARE TE ST DOCKED DEVICE UNSOLICITED RESULTS Final Result Performing Organization Address City/State/[facility] Co de Phone Number [facility]ARE [facility] [address] [place] [address] * (ABNORMAL) POCT glucose meter (06/05/2024 12:01 AM EDT) [facility] POCT Glucose 135(H) 74 - 99 mg/dL [...] for testing. Comment 06/05/2024 12:03 AM EDT [facility] C.O.D. Biller ID Leonarda Londono 12:03 AM EDT [facility] Device ID [id number] 06/05/2024 12:03 AM EDT [facility] Specimen Type POC Capillary 06/05/2024 12:03 AM EDT [facility] Blood Capillary blood specimen / Unknown 06/05/2024 12:01 AM EDT 06/05/2024 12:03 AM EDT Maite Austin MD LAB POINT OF CARE TE ST DOCKED DEVICE UNSOLICITED RESULTS Final Result Performing Organization Address City/[facility] Co de Phone Number [facility] [address] [place] [address] * (ABNORMAL) POCT glucose meter (06/04/2024 5:42 PM EDT) POCT Glucose 106(H) 74 - 99 [...] for testing. Comment 06/04/2024 5:44 PM EDT [facility] C.O.D. Biller ID Alejandra Redd 06/05/19 5:44 PM EDT [facility] Device ID [id number] 06/04/2024 5:44 PM EDT [facility] Specimen Type POC Capillary 06/04/2024 5:44 PM EDT [facility] Blood Capillary blood specimen / Unknown 06/04/2024 5:42 PM EDT 06/04/2024 5:44 PM EDT Maite Austin MD LAB POINT OF CARE TE ST DOCKED DEVICE UNSOLICITED RESULTS Final Result Performing Organization Address City/[facility] Co de Phone Number [facility] [address] [place] [address] * (ABNORMAL) POCT glucose meter (06/04/2024 12:56 PM EDT) POCT Glucose 143(H) 74 - 99 mg/dL [...] for testing. Comment 06/04/2024 12:58 PM EDT [facility] C.O.D. Biller ID Alejandra Redd 06/05/19 12:58 PM EDT [facility] Device ID [id number] 06/04/2024 12:58 PM EDT [facility] Specimen Type POC Capillary 06/04/2024 12:58 PM EDT [facility] Blood Capillary blood specimen / Unknown 06/04/2024 12:56 PM EDT 06/04/2024 12:58 PM EDT Maite Austin MD LAB POINT OF CARE TE ST DOCKED DEVICE UNSOLICITED RESULTS Final Result Performing Organization Address City/[facility]/ZIP Co de Phone Number [facility]ALTHCARE [facility] [address] [place] [address] * AFB Culture, Non Respiratory Source and Acid Fast Stain (06/04/2024 10:17 AM EDT) AFB Culture No Mycobacterial Growth at 6 Weeks 07/17/2024 11:29 AM EDT [facility] Acid Fast Stain No acid fast bacilli seen 07/17/2024 11:29 AM EDT [facility] [facility] Body Fluid Topography unknown / Unknown Non-blood Collection / Unknown 06/04/2024 10:17 AM EDT 06/04/2024 10:55 AM EDT us Maite Austin MD LAB MICROBIOLOGY - [facility] Final Result [facility] [address] [place] [id number] * (ABNORMAL) Body Fluid Culture and Gram Stain (06/04/2024 10:17 AM EDT) Culture No growth at day 4 2024 7:41 AM EDT [facility] Gram Stain Result No intact cells seen(A) 06/07/2024 7:41 AM EDT [facility] Gram Stain Result No polymorphonuclear leukocytes seen(A) 06/07/2024 7:41 AM EDT [facility] Gram Stain Result No organisms seen(A) 06/07/2024 7:41 AM EDT [facility] Body Fluid Topography unknown / Unknown Non-blood Collection / Unknown 06/04/2024 10:17 AM EDT 06/04/2024 10:55 AM EDT us Maite Austin MD LAB MICROBIOLOGY - GENERAL [place] Final Result [facility] [address] [place] [address] * (ABNORMAL) Body Fluid Cell Count w/ Diff (06/04/2024 10:17 AM EDT) Color, Body fluid Brown LAB HEMATOLOGY METHOD 06/04/2024 5:36 PM EDT [facility] Appearance, Body fluid Cloudy(A) LAB HEMATOLOGY METHOD 06/04/2024 5:36 PM EDT [facility] Volume, Body fluid 5.0 cc LAB HEMATOLOGY METHOD 06/04/2024 5:36 PM EDT [facility] Fluid Container Specimen received in miscellaneous container LAB HEMATOLOGY METHOD 06/04/2024 5:36 PM EDT [facility] Red Blood Cell Count, Body fluid LAB HEMATOLOGY METHOD 06/04/2024 5:36 PM EDT [facility] Comment:Unable to quantitate due to cell deterioration. Total Nucleated Cell Count, Body fluid LAB HEMATOLOGY METHOD 06/04/2024 5:36 PM EDT [facility] Comment:Unable to quantitate due to cell deterioration. Neutrophils %, Body fluid LAB HEMATOLOGY METHOD 06/04/2024 5:36 PM EDT [facility] Comment:Unable to quantitate due to cell deterioration. Lymphocytes %, Body fluid LAB HEMATOLOGY METHOD 06/04/2024 5:36 PM EDT [facility] Comment:Unable to quantitate due to cell deterioration. Monocytes/Macr ophages %, Body fluid LAB HEMATOLOGY METHOD 06/04/2024 5:36 PM EDT [facility] Comment:Unable to quantitate due to cell deterioration. Eosinophils %, Body fluid LAB HEMATOLOGY METHOD 06/04/2024 5:36 PM EDT [facility] Comment:Unable to quantitate due to cell deterioration. Lining/Mesothe lial Cells %, Body fluid LAB HEMATOLOGY METHOD 06/04/2024 5:36 PM EDT [facility] Comment:Unable to quantitate due to cell deterioration. Neutrophils Absolute (PMN), Body fluid LAB HEMATOLOGY METHOD 06/04/2024 5:36 PM EDT [facility] Comment:Unable to quantitate due to cell deterioration. Lymphocytes Absolute, Body fluid LAB HEMATOLOGY METHOD 06/04/2024 5:36 PM EDT [facility] Comment:Unable to quantitate due to cell deterioration. Monocytes/Macr ophages Absolute, Body fluid LAB HEMATOLOGY METHOD 06/04/2024 5:36 PM EDT [facility] Comment:Unable to quantitate due to cell deterioration. Eosinophils Absolute, Body fluid LAB HEMATOLOGY METHOD 06/04/2024 5:36 PM EDT [facility] Comment:Unable to quantitate due to cell deterioration. Basophils Absolute, Body fluid LAB HEMATOLOGY METHOD 06/04/2024 5:36 PM EDT [facility] Comment:Unable to quantitate due to cell deterioration. Lining/Mesothe lial Cells Absolute, Body fluid LAB HEMATOLOGY METHOD 06/04/2024 5:36 PM EDT [facility] Comment:Unable to quantitate due to cell deterioration. Basophils %, Body fluid LAB HEMATOLOGY METHOD 06/04/2024 5:36 PM EDT [facility] Comment:Unable to quantitate due to cell deterioration. Body Fluid Topography unknown / Unknown Non-blood Collection / Unknown 06/04/2024 10:17 AM EDT 06/04/2024 10:51 AM EDT Maite Austin MD LAB BODY FLUIDS AND STOOLS ORDERABLES NO SPECIMEN TYPE/SOURCE Final Result [facility] [address] [place] [address] * CT Guided Drain Placement Peritoneal or [...] the paracolic gutter presenting for drainage PHYSICIANS: turning machine set up operator: MAYTE ELMORE MD Secondary yard motor operator: None RAD DOSE: Total DLP 413 [...] the paracolic gutter presenting for drainage PHYSICIANS: turning machine set up operator: MAYTE ELMORE MD Secondary yard motor operator: Bry RAD DOSE: Total DLP 413 mGycm MEDICATIONS: [...] well, and was transferred back to the [facility] in good condition. Approximately 10 cc [...] on 06/04/2024 12:43 PM us Lorena Phillips ACCOUNTS RECEIVABLE SPECIALIST IMG CT PROCEDURES Final Resu lt * Magnesium, Plasma (06/04/2024 5:56 AM EDT) Magnesium, Plasma 2.1 1.9 - 2.4 mg/dL 06/04/2024 7:14 AM EDT [facility] Blood Venous blood specimen / Unknown Venipuncture / Unknown 06/04/2024 5:56 AM EDT 06/04/2024 6:44 AM EDT us Shola Sheridan ACCOUNTS RECEIVABLE SPECIALIST LAB BLOOD ORDERABLES Final R esult [facility] [address] [place] [address] * (ABNORMAL) Basic Metabolic Panel, Plasma (06/04/2024 5:56 AM EDT) Glucose, Plasma 105(H) 74 - 99 mg/dL 06/04/2024 7:14 AM EDT [facility] BUN, Plasma 12 7 - 21 mg/dL 06/04/2024 7:14 AM EDT [facility] Creatinine, Plasma 0.53(L) 0.60 - 1.10 mg/dL 06/04/2024 7:14 AM EDT [facility] BUN/Creatinine Ratio 23 06/04/2024 7:14 AM EDT [facility] Sodium, Plasma 133(L) 136 - 145 mmol/L 06/04/2024 7:14 AM EDT [facility] Potassium, Plasma 3.8 3.6 - 4.9 mmol/L 06/04/2024 7:14 AM EDT [facility] Chloride, Plasma 101 97 - 107 mmol/L 06/04/2024 7:14 AM EDT [facility] CO2, Plasma 24 22 - 29 mmol/L 06/04/2024 7:14 AM EDT [facility] Anion Gap 8 6 - 16 mmol/L 06/04/2024 7:14 AM EDT [facility] Total Calcium, Plasma 7.7(L) 8.9 - 10.2 mg/dL 06/04/2024 7:14 AM EDT [facility] eGFRcr 110.1 mL/min/1.7 3m*2 06/04/2024 7:14 AM EDT [facility] Comment:Reported eGFRcr in m L/min/1.73m2 is based the CKD-EPI 2020 equation that does not use a race coefficient. Blood Venous blood specimen / Unknown Venipuncture / Unknown 06/04/2024 5:56 AM EDT 06/04/2024 6:44 AM EDT us Shola Sheridan APRN LAB BLOOD ORDERABLES Final R esult [facility] [address] [place] [address] * (ABNORMAL) CBC W/O Differential (06/04/2024 5:56 AM EDT) WBC Count 22.10(H) 3.70 - 10.30 10*3/uL LAB HEMATOLOGY METHOD 06/04/2024 6:52 AM EDT [facility] RBC Count 3.15(L) 3.90 - 5.20 10*6/uL LAB HEMATOLOGY METHOD 06/04/2024 6:52 AM EDT [facility] HGB 9.4(L) 11.2 - 15.7 g/dL LAB HEMATOLOGY METHOD 06/04/2024 6:52 AM EDT [facility] HCT 29.3(L) 34.0 - 45.0 % LAB HEMATOLOGY METHOD 06/04/2024 6:52 AM EDT [facility] Platelet Count 716(H) 155 - 369 10*3/uL LAB HEMATOLOGY METHOD 06/04/2024 6:52 AM EDT [facility] MCV 93 79 - 98 fL LAB HEMATOLOGY METHOD 06/04/2024 6:52 AM EDT [facility] MCH 29.8 26.0 - 32.0 pg LAB HEMATOLOGY METHOD 06/04/2024 6:52 AM EDT [facility] MCHC 32.1 30.7 - 35.5 g/dL LAB HEMATOLOGY METHOD 06/04/2024 6:52 AM EDT [facility] RDW 15.5(H) 11.5 - 14.5 % LAB HEMATOLOGY METHOD 06/04/2024 6:52 AM EDT [facility] MPV 9.4 8.8 - 12.5 fL LAB HEMATOLOGY METHOD 06/04/2024 6:52 AM EDT [facility] nRBC 0.0 <=0.0 per 100 WBCs LAB HEMATOLOGY METHOD 06/04/2024 6:52 AM EDT [facility] Blood Venous blood specimen / Unknown Venipuncture / Unknown 06/04/2024 5:56 AM EDT 06/04/2024 6:44 AM EDT us Shola Sheridan ACCOUNTS RECEIVABLE SPECIALIST LAB BLOOD ORDERABLES Final R esult [facility] [address] [place] [address] * (ABNORMAL) POCT glucose meter (06/03/2024 11:08 PM EDT) POCT Glucose 133(H) 74 - 99 mg/dL 06/03/2024 11:12 PM EDT [facility] Comment:Accuracy of [...] Comment 06/03/2024 11:12 PM EDT [facility] C.O.D. Biller ID Sam, [place] 025 11:12 PM EDT [facility] Device ID [id number] 06/03/2024 11:12 PM EDT [facility] Specimen Type POC Capillary 06/03/2024 11:12 PM EDT [facility] Blood Capillary blood specimen / Unknown 06/03/2024 11:08 PM EDT 06/03/2024 11:12 PM EDT us Maite Austin MD LAB POINT OF CARE TE ST DOCKED DEVICE UNSOLICITED RESULTS Final Result Performing Organization Address City/[facility] Co de Phone Number [facility] [address] [place] [address] * (ABNORMAL) POCT glucose meter (06/03/2024 5:04 PM EDT) POCT Glucose 119(H) 74 - [...] Comment 06/03/2024 5:06 PM EDT [facility] C.O.D. Biller ID ClydePamela evans 06/03/2024 5:06 PM EDT [facility] Device ID [id number] 06/03/2024 5:06 PM EDT [facility] Specimen Type POC Capillary 06/03/2024 5:06 PM EDT [facility] Blood Capillary blood specimen / Unknown 06/03/2024 5:04 PM EDT 06/03/2024 5:06 PM EDT Maite Austin MD LAB POINT OF CARE TE ST DOCKED DEVICE UNSOLICITED RESULTS Final Result Performing Organization Address City/[facility] Co de Phone Number [facility] [address] [place] [address] * (ABNORMAL) POCT glucose meter (06/03/2024 11:48 AM EDT) POCT Glucose 123(H) 74 - 99 mg/dL [...] for testing. Comment 06/03/2024 11:50 AM EDT [facility] C.O.D. Biller ID Pamela Tang 06/03/2024 11:50 AM EDT [facility] Device ID [id number] 06/03/2024 11:50 AM EDT [facility] Specimen Type POC Capillary 06/03/2024 11:50 AM EDT [facility] Blood Capillary blood specimen / Unknown 06/03/2024 11:48 AM EDT 06/03/2024 11:50 AM EDT Maite Austin MD LAB POINT OF CARE TE ST DOCKED DEVICE UNSOLICITED RESULTS Final Result Performing Organization Address City/[facility] Co de Phone Number [facility] [address] [place] [address] * (ABNORMAL) POCT glucose meter (06/03/2024 7:54 AM EDT) POCT Glucose 136(H) 74 - 99 mg/dL 06/03/2024 7:56 AM EDT [facility] Comment:Accuracy of [...] Comment 06/03/2024 7:56 AM EDT [facility] C.O.D. Biller ID Fernanda De Luna 7:56 AM EDT [facility] Device ID [id number] 06/03/2024 7:56 AM EDT [facility] Specimen Type POC Capillary 06/03/2024 7:56 AM EDT [facility] Blood Capillary blood specimen / Unknown 06/03/2024 7:54 AM EDT 06/03/2024 7:56 AM EDT Maite Austin MD LAB POINT OF CARE TE ST DOCKED DEVICE UNSOLICITED RESULTS Final Result Performing Organization Address City/[facility]/ZIP Co de Phone Number [facility] [address] [place] [address] * (ABNORMAL) Prealbumin (06/03/2024 1:08 AM EDT) Pathologist [facility] Prealbumin, Plasma 16.8(L) 20.0 - 41.0 mg/dL 06/03/2024 1:49 AM EDT [facility] Blood Venous blood specimen / Unknown Venipuncture / Unknown 06/03/2024 1:08 AM EDT 06/03/2024 1:20 AM EDT Shola Sheridan APRN LAB BLOOD ORDERABLES Final R esult Performing Organization Address City/[facility]/ZIP Co de Phone Number [facility] [address] [place] [address] * Magnesium, Plasma (06/03/2024 1:08 AM EDT) [facility] Magnesium, Plasma 2.0 1.9 - 2.4 mg/dL 06/03/2024 1:49 AM EDT [facility] Blood Venous blood specimen / Unknown Venipuncture / Unknown 06/03/2024 1:08 AM EDT 06/03/2024 1:20 AM EDT Shola Sheridan APRN LAB BLOOD ORDERABLES Final R esult Performing Organization Address City/[facility]/ZIP Co de Phone Number [facility] [address] [place] [address] * (ABNORMAL) Basic Metabolic Panel, Plasma (06/03/2024 1:08 AM EDT) [facility] Glucose, Plasma 117(H) 74 - 99 mg/dL 06/03/2024 1:49 AM EDT [facility] BUN, Plasma 12 7 - 21 mg/dL 06/03/2024 1:49 AM EDT [facility] Creatinine, Plasma 0.48(L) 0.60 - 1.10 mg/dL 06/03/2024 1:49 AM EDT [facility] BUN/Creatinine Ratio 25 06/03/2024 1:49 AM EDT [facility] Sodium, Plasma 130(L) 136 - 145 mmol/L 06/03/2024 1:49 AM EDT [facility] Potassium, Plasma 3.3(L) 3.6 - 4.9 mmol/L 06/03/2024 1:49 AM EDT [facility] Chloride, Plasma 98 97 - 107 mmol/L 06/03/2024 1:49 AM EDT [facility] CO2, Plasma 23 22 - 29 mmol/L 06/03/2024 1:49 AM EDT [facility] Anion Gap 9 6 - 16 mmol/L 06/03/2024 1:49 AM EDT [facility] Total Calcium, Plasma 7.7(L) 8.9 - 10.2 mg/dL 06/03/2024 1:49 AM EDT [facility] eGFRcr 112.7 mL/min/1.7 3m*2 06/03/2024 1:49 AM EDT [facility] Comment:Reported eGFRcr in m L/min/1.73m2 is based the CKD-EPI 2020 equation that does not use a race coefficient. Blood Venous blood specimen / Unknown Venipuncture / Unknown 06/03/2024 1:08 AM EDT 06/03/2024 1:20 AM EDT us Shola Sheridan APRN LAB BLOOD ORDERABLES Final R esult [facility] [address] [place] [address] * (ABNORMAL) CBC W/O Differential (06/03/2024 1:08 AM EDT) WBC Count 20.40(H) 3.70 - 10.30 10*3/uL LAB HEMATOLOGY METHOD 06/03/2024 1:27 AM EDT [facility] RBC Count 3.12(L) 3.90 - 5.20 10*6/uL LAB HEMATOLOGY METHOD 06/03/2024 1:27 AM EDT [facility] HGB 9.2(L) 11.2 - 15.7 g/dL LAB HEMATOLOGY METHOD 06/03/2024 1:27 AM EDT [facility] HCT 28.8(L) 34.0 - 45.0 % LAB HEMATOLOGY METHOD 06/03/2024 1:27 AM EDT [facility] Platelet Count 689(H) 155 - 369 10*3/uL LAB HEMATOLOGY METHOD 06/03/2024 1:27 AM EDT [facility] MCV 92 79 - 98 fL LAB HEMATOLOGY METHOD 06/03/2024 1:27 AM EDT [facility] MCH 29.5 26.0 - 32.0 pg LAB HEMATOLOGY METHOD 06/03/2024 1:27 AM EDT [facility] MCHC 31.9 30.7 - 35.5 g/dL LAB HEMATOLOGY METHOD 06/03/2024 1:27 AM EDT [facility] RDW 15.6(H) 11.5 - 14.5 % LAB HEMATOLOGY METHOD 06/03/2024 1:27 AM EDT [facility] MPV 9.3 8.8 - 12.5 fL LAB HEMATOLOGY METHOD 06/03/2024 1:27 AM EDT [facility] nRBC 0.0 <=0.0 per 100 WBCs LAB HEMATOLOGY METHOD 06/03/2024 1:27 AM EDT [facility] Blood Venous blood specimen / Unknown Venipuncture / Unknown 06/03/2024 1:08 AM EDT 06/03/2024 1:19 AM EDT us Shola Sheridan ACCOUNTS RECEIVABLE SPECIALIST LAB BLOOD ORDERABLES Final R esult [facility] [address] [place] [address] * (ABNORMAL) POCT glucose meter (06/02/2024 5:54 PM EDT) [facility] POCT Glucose 113(H) 74 - 99 mg/dL [...] for testing. Comment 06/02/2024 5:59 PM EDT [facility] C.O.D. Biller ID Yonny Urbano 5:59 PM EDT [facility] Device ID [id number] 06/02/2024 5:59 PM EDT [facility] Specimen Type POC Capillary 06/02/2024 5:59 PM EDT [facility] Blood Capillary blood specimen / Unknown 06/02/2024 5:54 PM EDT 06/02/2024 5:59 PM EDT Maite Austin MD LAB POINT OF CARE TE ST DOCKED DEVICE UNSOLICITED RESULTS Final Result Performing Organization Address City/[facility] Co de Phone Number [facility] [address] [place] [address] * (ABNORMAL) POCT glucose meter (06/02/2024 12:39 PM EDT) [facility] POCT Glucose 107(H) 74 - 99 mg/dL [...] for testing. Comment 06/02/2024 12:42 PM EDT [facility] C.O.D. Biller ID Yonny Urbano 12:42 PM EDT [facility] Device ID [id number] 06/02/2024 12:42 PM EDT [facility] Specimen Type POC Capillary 06/02/2024 12:42 PM EDT [facility] Blood Capillary blood specimen / Unknown 06/02/2024 12:39 PM EDT 06/02/2024 12:42 PM EDT us Maite Austin MD LAB POINT OF CARE TE ST DOCKED DEVICE UNSOLICITED RESULTS Final Result Performing Organization Address City/[facility] Co de Phone Number [facility] [address] [place] [address] * (ABNORMAL) Basic metabolic panel (06/02/2024 7:08 AM EDT) Pathologist [facility] Glucose, Plasma 111(H) 74 - 99 mg/dL 06/02/2024 8:10 AM EDT [facility] BUN, Plasma 13 7 - 21 mg/dL 06/02/2024 8:10 AM EDT [facility] Creatinine, Plasma 0.60 0.60 - 1.10 mg/dL 06/02/2024 8:10 AM EDT [facility] BUN/Creatinine Ratio 22 06/02/2024 8:10 AM EDT [facility] Sodium, Plasma 130(L) 136 - 145 mmol/L 06/02/2024 8:10 AM EDT [facility] Potassium, Plasma 3.6 3.6 - 4.9 mmol/L 06/02/2024 8:10 AM EDT [facility] Chloride, Plasma 97 97 - 107 mmol/L 06/02/2024 8:10 AM EDT [facility] CO2, Plasma 21(L) 22 - 29 mmol/L 06/02/2024 8:10 AM EDT [facility] Anion Gap 12 6 - 16 mmol/L 06/02/2024 8:10 AM EDT [facility] Total Calcium, Plasma 7.9(L) 8.9 - 10.2 mg/dL 06/02/2024 8:10 AM EDT [facility] eGFRcr 106.8 mL/min/1.7 3m*2 06/02/2024 8:10 AM EDT [facility] Comment:Reported eGFRcr in m L/min/1.73m2 is based the CKD-EPI 2020 equation that does not use a race coefficient. Blood Venous blood specimen / Unknown Venipuncture / Unknown 06/02/2024 7:08 AM EDT 06/02/2024 7:42 AM EDT us Maite Austin MD LAB BLOOD ORDERABLES Final Resu lt [facility] [address] [place] [address] * (ABNORMAL) Renal Function Panel, Plasma (06/02/2024 1:02 AM EDT) Glucose, Plasma 507(HH) 74 - 99 mg/dL 06/02/2024 1:47 AM EDT [facility] BUN, Plasma 11 7 - 21 mg/dL 06/02/2024 1:47 AM EDT [facility] Creatinine, Plasma 0.60 0.60 - 1.10 mg/dL 06/02/2024 1:47 AM EDT [facility] BUN/Creatinine Ratio 18 06/02/2024 1:47 AM EDT [facility] Sodium, Plasma 125(L) 136 - 145 mmol/L 06/02/2024 1:47 AM EDT [facility] Potassium, Plasma 4.8 3.6 - 4.9 mmol/L 06/02/2024 1:47 AM EDT [facility] Chloride, Plasma 93(L) 97 - 107 mmol/L 06/02/2024 1:47 AM EDT [facility] CO2, Plasma 20(L) 22 - 29 mmol/L 06/02/2024 1:47 AM EDT [facility] Anion Gap 12 6 - 16 mmol/L 06/02/2024 1:47 AM EDT [facility] Total Calcium, Plasma 7.9(L) 8.9 - 10.2 mg/dL 06/02/2024 1:47 AM EDT [facility] Phosphorus, Plasma 5.8(H) 2.5 - 4.5 mg/dL 06/02/2024 1:47 AM EDT [facility] Albumin, Plasma 2.2(L) 3.5 - 5.2 g/dL 06/02/2024 1:47 AM EDT [facility] eGFRcr 106.8 mL/min/1.7 3m*2 06/02/2024 1:47 AM EDT [facility] Comment:Reported eGFRcr in m L/min/1.73m2 is based the CKD-EPI 2020 equation that does not use a race coefficient. Blood Venous blood specimen / Unknown Venipuncture / Unknown 06/02/2024 1:02 AM EDT 06/02/2024 1:16 AM EDT us Lora Llanes ACCOUNTS RECEIVABLE SPECIALIST LAB BLOOD ORDERABLES Final Result [facility] [address] [place] [address] * Magnesium, Plasma (06/02/2024 1:02 AM EDT) Pathologist [facility] Magnesium, Plasma 2.3 1.9 - 2.4 mg/dL 06/02/2024 1:47 AM EDT [facility] Blood Venous blood specimen / Unknown Venipuncture / Unknown 06/02/2024 1:02 AM EDT 06/02/2024 1:16 AM EDT us Maite Austin MD LAB BLOOD ORDERABLES Final Resu lt Performing Organization Address [facility]/ZIP Co de Phone Number [facility] [address] [place] [address] * (ABNORMAL) CBC and Differential (06/02/2024 1:02 AM EDT) Pathologist [facility] WBC Count 33.90(H) 3.70 - 10.30 10*3/uL LAB HEMATOLOGY METHOD 06/02/2024 3:00 AM EDT [facility] RBC Count 3.08(L) 3.90 - 5.20 10*6/uL LAB HEMATOLOGY METHOD 06/02/2024 3:00 AM EDT [facility] HGB 9.2(L) 11.2 - 15.7 g/dL LAB HEMATOLOGY METHOD 06/02/2024 3:00 AM EDT [facility] HCT 28.7(L) 34.0 - 45.0 % LAB HEMATOLOGY METHOD 06/02/2024 3:00 AM EDT [facility] Platelet Count 702(H) 155 - 369 10*3/uL LAB HEMATOLOGY METHOD 06/02/2024 3:00 AM EDT [facility] MCV 93 79 - 98 fL LAB HEMATOLOGY METHOD 06/02/2024 3:00 AM EDT [facility] MCH 29.9 26.0 - 32.0 pg LAB HEMATOLOGY METHOD 06/02/2024 3:00 AM EDT [facility] MCHC 32.1 30.7 - 35.5 g/dL LAB HEMATOLOGY METHOD 06/02/2024 3:00 AM EDT [facility] RDW 15.9(H) 11.5 - 14.5 % LAB HEMATOLOGY METHOD 06/02/2024 3:00 AM EDT [facility] MPV 9.7 8.8 - 12.5 fL LAB HEMATOLOGY METHOD 06/02/2024 3:00 AM EDT [facility] nRBC 0.0 <=0.0 per 100 WBCs LAB HEMATOLOGY METHOD 06/02/2024 3:00 AM EDT [facility] Differential Type Automated LAB HEMATOLOGY METHOD 06/02/2024 3:00 AM EDT [facility] Neutrophils % 84 % LAB HEMATOLOGY METHOD 06/02/2024 3:00 AM EDT [facility] Lymphocytes % 6 % LAB HEMATOLOGY METHOD 06/02/2024 3:00 AM EDT [facility] Monocytes % 5 % LAB HEMATOLOGY METHOD 06/02/2024 3:00 AM EDT [facility] Eosinophils % 1 % LAB HEMATOLOGY METHOD 06/02/2024 3:00 AM EDT [facility] Basophils % 0 % LAB HEMATOLOGY METHOD 06/02/2024 3:00 AM EDT [facility] Immature Granulocytes % 4 % LAB HEMATOLOGY METHOD 06/02/2024 3:00 AM EDT [facility] Neutrophils Absolute 28.51(H) 1.60 - 6.10 10*3/uL LAB HEMATOLOGY METHOD 06/02/2024 3:00 AM EDT [facility] Lymphocytes Absolute 1.86 1.20 - 3.90 10*3/uL LAB HEMATOLOGY METHOD 06/02/2024 3:00 AM EDT [facility] Monocytes Absolute 1.83(H) 0.30 - 0.90 10*3/uL LAB HEMATOLOGY METHOD 06/02/2024 3:00 AM EDT [facility] Eosinophils Absolute 0.27 0.00 - 0.50 10*3/uL LAB HEMATOLOGY METHOD 06/02/2024 3:00 AM EDT [facility] Basophils Absolute 0.05 0.00 - 0.10 10*3/uL LAB HEMATOLOGY METHOD 06/02/2024 3:00 AM EDT [facility] Immature Granulocytes Absolute 1.38(H) 0.00 - 0.06 10*3/uL LAB HEMATOLOGY METHOD 06/02/2024 3:00 AM EDT [facility] Blood Venous blood specimen / Unknown Venipuncture / Unknown 06/02/2024 1:02 AM EDT 06/02/2024 1:16 AM EDT Narrative [facility] - 06/02/2024 3:00 AM EDT Therapeutic decision making should be based on absolute values, rather than percentages. us Maite Austin MD LAB BLOOD ORDERABLES Final Resu lt [facility] [address] [place] [address] * (ABNORMAL) POCT glucose meter (06/01/2024 11:06 [...] Comment 06/01/2024 11:07 PM EDT [facility] C.O.D. Biller ID Tyler Sheffield 06/01/2024 11:07 PM EDT [facility] Device ID [id number] 06/01/2024 11:07 PM EDT [facility] Specimen Type POC Capillary 06/01/2024 11:07 PM EDT [facility] Blood Capillary blood specimen / Unknown 06/01/2024 11:06 PM EDT 06/01/2024 11:07 PM EDT us Maite Austin MD LAB POINT OF CARE TE ST DOCKED DEVICE UNSOLICITED RESULTS Final Result Performing Organization Address City/[facility]/ZIP Co de Phone Number [facility] [address] [place] [address] * CT Abdomen Pelvis w IV Contrast [...] MD on 06/01/2024 5:03 PM Shola Sheridan ACCOUNTS RECEIVABLE SPECIALIST IMG CT PROCEDURES Final Resu lt * (ABNORMAL) POCT glucose meter (06/01/2024 11:48 AM EDT) POCT Glucose 101(H) 74 - 99 mg/dL 06/01/2024 11:50 AM EDT [facility] Comment:Accuracy of a glucos e result [...] for testing. Comment 06/01/2024 11:50 AM EDT [facility] C.O.D. Biller ID Henrry Saenz 11:50 AM EDT [facility] Device ID [id number] 06/01/2024 11:50 AM EDT [facility] Specimen Type POC Capillary 06/01/2024 11:50 AM EDT [facility] Blood Capillary blood specimen / Unknown 06/01/2024 11:48 AM EDT 06/01/2024 11:50 AM EDT us Maite Austin MD LAB POINT OF CARE TE ST DOCKED DEVICE UNSOLICITED RESULTS Final Result Performing Organization Address [facility] Co de Phone Number [facility] [address] [place] [address] * (ABNORMAL) Procalcitonin (06/01/2024 8:42 AM EDT) Procalcitonin, Plasma 0.12(H) <0.09 ng/mL 06/01/2024 9:31 AM EDT [facility] Blood Venous blood specimen / Unknown Venipuncture / Unknown 06/01/2024 8:42 AM EDT 06/01/2024 8:52 AM EDT Narrative [facility] - 06/01/2024 9:31 AM EDT [...] predict 28 day mortality risk. Please consult [email or web address] for more information. Test performed at [facility], [facility]. us Shola Sheridan APRN LAB BLOOD ORDERABLES Final R esult Performing Organization Address City/[facility]/ZIP Co de Phone Number [facility] [address] [place] [address] * Lactate, venous (06/01/2024 8:42 AM EDT) Lactate, Venous, Whole Blood 0.9 0.5 - 2.2 mmol/L LAB HEMATOLOGY METHOD 06/01/2024 9:01 AM EDT [facility] Blood Venous blood specimen / Unknown Venipuncture / Unknown 06/01/2024 8:42 AM EDT 06/01/2024 8:59 AM EDT us Shola Sheridan APRN LAB BLOOD ORDERABLES Final R esult Performing Organization Address City/[facility]/ZIP Co de Phone Number [facility] [address] [place] [address] * (ABNORMAL) POCT glucose meter (06/01/2024 6:42 [...] Comment 06/01/2024 6:51 AM EDT [facility] C.O.D. Biller ID Sandy Hankins 06/01/2024 6:51 AM EDT [facility] Device ID [id number] 06/01/2024 6:51 AM EDT [facility] Specimen Type POC Capillary 06/01/2024 6:51 AM EDT [facility] Blood Capillary blood specimen / Unknown 06/01/2024 6:42 AM EDT 06/01/2024 6:51 AM EDT us Maite Austin MD LAB POINT OF CARE TE ST DOCKED DEVICE UNSOLICITED RESULTS Final Result Performing Organization Address City/[facility]/ZIP Co de Phone Number [facility] [address] [place] [address] * (ABNORMAL) Renal Function Panel, Plasma (06/01/2024 1:20 AM EDT) Glucose, Plasma 495(H) 74 - 99 mg/dL 06/01/2024 1:57 AM EDT [facility] BUN, Plasma 12 7 - 21 mg/dL 06/01/2024 1:57 AM EDT [facility] Creatinine, Plasma 0.54(L) 0.60 - 1.10 mg/dL 06/01/2024 1:57 AM EDT [facility] BUN/Creatinine Ratio 22 06/01/2024 1:57 AM EDT [facility] Sodium, Plasma 126(L) 136 - 145 mmol/L 06/01/2024 1:57 AM EDT [facility] Potassium, Plasma 4.9 3.6 - 4.9 mmol/L 06/01/2024 1:57 AM EDT [facility] Chloride, Plasma 95(L) 97 - 107 mmol/L 06/01/2024 1:57 AM EDT [facility] CO2, Plasma 20(L) 22 - 29 mmol/L 06/01/2024 1:57 AM EDT [facility] Anion Gap 11 6 - 16 mmol/L 06/01/2024 1:57 AM EDT [facility] Total Calcium, Plasma 8.0(L) 8.9 - 10.2 mg/dL 06/01/2024 1:57 AM EDT [facility] Phosphorus, Plasma 5.2(H) 2.5 - 4.5 mg/dL 06/01/2024 1:57 AM EDT [facility] Albumin, Plasma 2.2(L) 3.5 - 5.2 g/dL 06/01/2024 1:57 AM EDT [facility] eGFRcr 109.6 mL/min/1.7 3m*2 06/01/2024 1:57 AM EDT [facility] Comment:Reported eGFRcr in m L/min/1.73m2 is based the CKD-EPI 2020 equation that does not use a race coefficient. Blood Venous blood specimen / Unknown Venipuncture / Unknown 06/01/2024 1:20 AM EDT 06/01/2024 1:27 AM EDT us Lora Llanes ACCOUNTS RECEIVABLE SPECIALIST LAB BLOOD ORDERABLES Final Result [facility] [address] [place] [address] * Magnesium, Plasma (06/01/2024 1:20 AM EDT) Magnesium, Plasma 2.3 1.9 - 2.4 mg/dL 06/01/2024 1:57 AM EDT [facility] Blood Venous blood specimen / Unknown Venipuncture / Unknown 06/01/2024 1:20 AM EDT 06/01/2024 1:27 AM EDT us Maite Austin MD LAB BLOOD ORDERABLES Final Resu lt [facility] [address] [place] [address] * (ABNORMAL) CBC and Differential (06/01/2024 1:20 AM EDT) WBC Count 33.03(H) 3.70 - 10.30 10*3/uL LAB HEMATOLOGY METHOD 06/01/2024 2:43 AM EDT [facility] RBC Count 3.18(L) 3.90 - 5.20 10*6/uL LAB HEMATOLOGY METHOD 06/01/2024 2:43 AM EDT [facility] HGB 9.7(L) 11.2 - 15.7 g/dL LAB HEMATOLOGY METHOD 06/01/2024 2:43 AM EDT [facility] HCT 29.3(L) 34.0 - 45.0 % LAB HEMATOLOGY METHOD 06/01/2024 2:43 AM EDT [facility] Platelet Count 644(H) 155 - 369 10*3/uL LAB HEMATOLOGY METHOD 06/01/2024 2:43 AM EDT [facility] MCV 92 79 - 98 fL LAB HEMATOLOGY METHOD 06/01/2024 2:43 AM EDT [facility] MCH 30.5 26.0 - 32.0 pg LAB HEMATOLOGY METHOD 06/01/2024 2:43 AM EDT [facility] MCHC 33.1 30.7 - 35.5 g/dL LAB HEMATOLOGY METHOD 06/01/2024 2:43 AM EDT [facility] RDW 15.9(H) 11.5 - 14.5 % LAB HEMATOLOGY METHOD 06/01/2024 2:43 AM EDT [facility] MPV 9.6 8.8 - 12.5 fL LAB HEMATOLOGY METHOD 06/01/2024 2:43 AM EDT [facility] nRBC 0.0 <=0.0 per 100 WBCs LAB HEMATOLOGY METHOD 06/01/2024 2:43 AM EDT [facility] Differential Type Automated LAB HEMATOLOGY METHOD 06/01/2024 2:43 AM EDT [facility] Neutrophils % 81 % LAB HEMATOLOGY METHOD 06/01/2024 2:43 AM EDT [facility] Lymphocytes % 7 % LAB HEMATOLOGY METHOD 06/01/2024 2:43 AM EDT [facility] Monocytes % 6 % LAB HEMATOLOGY METHOD 06/01/2024 2:43 AM EDT [facility] Eosinophils % 1 % LAB HEMATOLOGY METHOD 06/01/2024 2:43 AM EDT [facility] Basophils % 1 % LAB HEMATOLOGY METHOD 06/01/2024 2:43 AM EDT [facility] Immature Granulocytes % 4 % LAB HEMATOLOGY METHOD 06/01/2024 2:43 AM EDT [facility] Neutrophils Absolute 26.89(H) 1.60 - 6.10 10*3/uL LAB HEMATOLOGY METHOD 06/01/2024 2:43 AM EDT [facility] Lymphocytes Absolute 2.39 1.20 - 3.90 10*3/uL LAB HEMATOLOGY METHOD 06/01/2024 2:43 AM EDT [facility] Monocytes Absolute 2.07(H) 0.30 - 0.90 10*3/uL LAB HEMATOLOGY METHOD 06/01/2024 2:43 AM EDT [facility] Eosinophils Absolute 0.22 0.00 - 0.50 10*3/uL LAB HEMATOLOGY METHOD 06/01/2024 2:43 AM EDT [facility] Basophils Absolute 0.15(H) 0.00 - 0.10 10*3/uL LAB HEMATOLOGY METHOD 06/01/2024 2:43 AM EDT [facility] Immature Granulocytes Absolute 1.31(H) 0.00 - 0.06 10*3/uL LAB HEMATOLOGY METHOD 06/01/2024 2:43 AM EDT [facility] Blood Venous blood specimen / Unknown Venipuncture / Unknown 06/01/2024 1:20 AM EDT 06/01/2024 1:28 AM EDT Narrative [facility] - 06/01/2024 2:43 AM EDT Therapeutic decision making should be based on absolute values, rather than percentages. us Maite Austin MD LAB BLOOD ORDERABLES Final Resu lt [facility] [address] [place] [address] * (ABNORMAL) POCT glucose meter (06/01/2024 12:21 AM EDT) POCT Glucose 110(H) 74 - 99 mg/dL 06/01/2024 12:29 AM EDT [facility] Comment:Accuracy of [...] Comment 06/01/2024 12:29 AM EDT [facility] C.O.D. Biller ID Sandy Hankins 06/01/2024 12:29 AM EDT [facility] Device ID [id number] 06/01/2024 12:29 AM EDT [facility] Specimen Type POC Capillary 06/01/2024 12:29 AM EDT [facility] Blood Capillary blood specimen / Unknown 06/01/2024 12:21 AM EDT 06/01/2024 12:29 AM EDT us Maite Austin MD LAB POINT OF CARE TE ST DOCKED DEVICE UNSOLICITED RESULTS Final Result Performing Organization Address City/[facility]/ZIP Co de Phone Number [facility] [address] [place] [address] * POCT glucose meter (05/31/2024 6:17 PM [...] 05/31/2024 6:19 PM EDT [facility] C.O.D. Biller ID Henrry Saenz 6:19 PM EDT [facility] Device ID [id number] 05/31/2024 6:19 PM EDT [facility] Specimen Type POC Capillary 05/31/2024 6:19 PM EDT [facility] Blood Capillary blood specimen / Unknown 05/31/2024 6:17 PM EDT 05/31/2024 6:19 PM EDT Maite Austin MD LAB POINT OF CARE TE ST DOCKED DEVICE UNSOLICITED RESULTS Final Result Performing Organization Address City/State/[facility] Co de Phone Number [facility] [address] [place] [address] * (ABNORMAL) POCT glucose meter (05/31/2024 11:15 AM EDT) [facility] POCT Glucose 115(H) 74 - 99 mg/dL [...] for testing. Comment 05/31/2024 11:17 AM EDT [facility] C.O.D. Biller ID Henrry Saenz 11:17 AM EDT [facility] Device ID [id number] 05/31/2024 11:17 AM EDT [facility] Specimen Type POC Capillary 05/31/2024 11:17 AM EDT [facility] Blood Capillary blood specimen / Unknown 05/31/2024 11:15 AM EDT 05/31/2024 11:17 AM EDT Maite Austin MD LAB POINT OF CARE TE ST DOCKED DEVICE UNSOLICITED RESULTS Final Result [facility] [address] [place] [address] * XR Chest 1 View (05/31/2024 4:32 [...] line in place with similar [facility] Stable cardiac mediastinal silhouette. No consolidation. [...] Edson Ambrose MD on 05/31/2024 10:46 AM Maite Austin MD IMG XR PROCEDURES Final Result * N-Terminal Probnp, Plasma (05/31/2024 2:50 AM EDT) N-Terminal, PROBNP, Plasma 732 0 - 899 pg/mL 05/31/2024 3:27 AM EDT [facility] Blood Blood sample taken from central line / Unknown (Central Line) Existing Catheter / Unknown 05/31/2024 2:50 AM EDT 05/31/2024 2:55 AM EDT us Dulce Alamo ACCOUNTS RECEIVABLE SPECIALIST LAB BLOOD ORDERABLES Final R esult [facility] [address] [place] [address] * (ABNORMAL) Renal Function Panel, Plasma (05/31/2024 2:50 AM EDT) Glucose, Plasma 107(H) 74 - 99 mg/dL 05/31/2024 3:27 AM EDT [facility] BUN, Plasma 13 7 - 21 mg/dL 05/31/2024 3:27 AM EDT [facility] Creatinine, Plasma 0.52(L) 0.60 - 1.10 mg/dL 05/31/2024 3:27 AM EDT [facility] BUN/Creatinine Ratio 25 05/31/2024 3:27 AM EDT [facility] Sodium, Plasma 129(L) 136 - 145 mmol/L 05/31/2024 3:27 AM EDT [facility] Potassium, Plasma 3.7 3.6 - 4.9 mmol/L 05/31/2024 3:27 AM EDT [facility] Chloride, Plasma 95(L) 97 - 107 mmol/L 05/31/2024 3:27 AM EDT [facility] CO2, Plasma 25 22 - 29 mmol/L 05/31/2024 3:27 AM EDT [facility] Anion Gap 9 6 - 16 mmol/L 05/31/2024 3:27 AM EDT [facility] Total Calcium, Plasma 8.3(L) 8.9 - 10.2 mg/dL 05/31/2024 3:27 AM EDT [facility] Phosphorus, Plasma 4.4 2.5 - 4.5 mg/dL 05/31/2024 3:27 AM EDT [facility] Albumin, Plasma 2.5(L) 3.5 - 5.2 g/dL 05/31/2024 3:27 AM EDT [facility] eGFRcr 110.6 mL/min/1.7 3m*2 05/31/2024 3:27 AM EDT [facility] Comment:Reported eGFRcr in m L/min/1.73m2 is based the CKD-EPI 2020 equation that does not use a race coefficient. Blood Blood sample taken from central line / Unknown (Central Line) Existing Catheter / Unknown 05/31/2024 2:50 AM EDT 05/31/2024 2:55 AM EDT us Lora Llanes APRN LAB BLOOD ORDERABLES Final Result Performing Organization Address City/[facility]/ZIP Co de Phone Number [facility] [address] [place] [address] * Magnesium, Plasma (05/31/2024 2:50 AM EDT) Magnesium, Plasma 2.0 1.9 - 2.4 mg/dL 05/31/2024 3:27 AM EDT [facility] Blood Blood sample taken from central line / Unknown (Central Line) Existing Catheter / Unknown 05/31/2024 2:50 AM EDT 05/31/2024 2:55 AM EDT us Miate Austin MD LAB BLOOD ORDERABLES Final Resu lt [facility] [address] [place] [address] * (ABNORMAL) CBC and Differential (05/31/2024 2:50 AM EDT) WBC Count 26.51(H) 3.70 - 10.30 10*3/uL LAB HEMATOLOGY METHOD 05/31/2024 3:03 AM EDT [facility] RBC Count 3.36(L) 3.90 - 5.20 10*6/uL LAB HEMATOLOGY METHOD 05/31/2024 3:03 AM EDT [facility] HGB 10.2(L) 11.2 - 15.7 g/dL LAB HEMATOLOGY METHOD 05/31/2024 3:03 AM EDT [facility] HCT 31.0(L) 34.0 - 45.0 % LAB HEMATOLOGY METHOD 05/31/2024 3:03 AM EDT [facility] Platelet Count 670(H) 155 - 369 10*3/uL LAB HEMATOLOGY METHOD 05/31/2024 3:03 AM EDT [facility] MCV 92 79 - 98 fL LAB HEMATOLOGY METHOD 05/31/2024 3:03 AM EDT [facility] MCH 30.4 26.0 - 32.0 pg LAB HEMATOLOGY METHOD 05/31/2024 3:03 AM EDT [facility] MCHC 32.9 30.7 - 35.5 g/dL LAB HEMATOLOGY METHOD 05/31/2024 3:03 AM EDT [facility] RDW 15.9(H) 11.5 - 14.5 % LAB HEMATOLOGY METHOD 05/31/2024 3:03 AM EDT [facility] MPV 9.8 8.8 - 12.5 fL LAB HEMATOLOGY METHOD 05/31/2024 3:03 AM EDT [facility] nRBC 0.0 <=0.0 per 100 WBCs LAB HEMATOLOGY METHOD 05/31/2024 3:03 AM EDT [facility] Differential Type Automated LAB HEMATOLOGY METHOD 05/31/2024 3:03 AM EDT [facility] Neutrophils % 74 % LAB HEMATOLOGY METHOD 05/31/2024 3:03 AM EDT [facility] Lymphocytes % 8 % LAB HEMATOLOGY METHOD 05/31/2024 3:03 AM EDT [facility] Monocytes % 9 % LAB HEMATOLOGY METHOD 05/31/2024 3:03 AM EDT [facility] Eosinophils % 1 % LAB HEMATOLOGY METHOD 05/31/2024 3:03 AM EDT [facility] Basophils % 1 % LAB HEMATOLOGY METHOD 05/31/2024 3:03 AM EDT [facility] Immature Granulocytes % 7 % LAB HEMATOLOGY METHOD 05/31/2024 3:03 AM EDT [facility] Neutrophils Absolute 19.86(H) 1.60 - 6.10 10*3/uL LAB HEMATOLOGY METHOD 05/31/2024 3:03 AM EDT [facility] Lymphocytes Absolute 2.08 1.20 - 3.90 10*3/uL LAB HEMATOLOGY METHOD 05/31/2024 3:03 AM EDT [facility] Monocytes Absolute 2.26(H) 0.30 - 0.90 10*3/uL LAB HEMATOLOGY METHOD 05/31/2024 3:03 AM EDT [facility] Eosinophils Absolute 0.26 0.00 - 0.50 10*3/uL LAB HEMATOLOGY METHOD 05/31/2024 3:03 AM EDT [facility] Basophils Absolute 0.15(H) 0.00 - 0.10 10*3/uL LAB HEMATOLOGY METHOD 05/31/2024 3:03 AM EDT [facility] Immature Granulocytes Absolute 1.90(H) 0.00 - 0.06 10*3/uL LAB HEMATOLOGY METHOD 05/31/2024 3:03 AM EDT [facility] Blood Blood sample taken from central line / Unknown (Central Line) Existing Catheter / Unknown 05/31/2024 2:50 AM EDT 05/31/2024 2:55 AM EDT Narrative [facility] - 05/31/2024 3:03 AM EDT Therapeutic decision making should be based on absolute values, rather than percentages. us Maite Austin MD LAB BLOOD ORDERABLES Final Resu lt Performing Organization Address City/State/[facility] Co de Phone Number [facility] [address] [place] [address] * [place] NEGATIVE PRESSURE WOUND THERAPY DME >50 SQ [...] - 899 pg/mL 05/30/2024 2:27 PM EDT [facility] Blood Venous blood specimen / Unknown Venipuncture / Unknown 05/30/2024 5:13 AM EDT 05/30/2024 5:26 AM EDT us Dulce Alamo APRN LAB BLOOD ORDERABLES Final R esult [facility] [address] [place] [address] * (ABNORMAL) Renal Function Panel, Plasma (05/30/2024 5:13 AM EDT) Glucose, Plasma 112(H) 74 - 99 mg/dL 05/30/2024 6:03 AM EDT [facility] BUN, Plasma 14 7 - 21 mg/dL 05/30/2024 6:03 AM EDT [facility] Creatinine, Plasma 0.52(L) 0.60 - 1.10 mg/dL 05/30/2024 6:03 AM EDT [facility] BUN/Creatinine Ratio 27 05/30/2024 6:03 AM EDT [facility] Sodium, Plasma 131(L) 136 - 145 mmol/L 05/30/2024 6:03 AM EDT [facility] Potassium, Plasma 3.7 3.6 - 4.9 mmol/L 05/30/2024 6:03 AM EDT [facility] Chloride, Plasma 96(L) 97 - 107 mmol/L 05/30/2024 6:03 AM EDT [facility] CO2, Plasma 24 22 - 29 mmol/L 05/30/2024 6:03 AM EDT [facility] Anion Gap 11 6 - 16 mmol/L 05/30/2024 6:03 AM EDT [facility] Total Calcium, Plasma 8.0(L) 8.9 - 10.2 mg/dL 05/30/2024 6:03 AM EDT [facility] Phosphorus, Plasma 4.3 2.5 - 4.5 mg/dL 05/30/2024 6:03 AM EDT [facility] Albumin, Plasma 2.3(L) 3.5 - 5.2 g/dL 05/30/2024 6:03 AM EDT [facility] eGFRcr 110.6 mL/min/1.7 3m*2 05/30/2024 6:03 AM EDT [facility] Comment:Reported eGFRcr in m L/min/1.73m2 is based the CKD-EPI 2020 equation that does not use a race coefficient. Blood Venous blood specimen / Unknown Venipuncture / Unknown 05/30/2024 5:13 AM EDT 05/30/2024 5:26 AM EDT us Lora Llanes APRN LAB BLOOD ORDERABLES Final Result Performing Organization Address [facility]/ZIP Co de Phone Number [facility] [address] [place] [address] * Magnesium, Plasma (05/30/2024 5:13 AM EDT) Magnesium, Plasma 1.9 1.9 - 2.4 mg/dL 05/30/2024 6:03 AM EDT [facility] Blood Venous blood specimen / Unknown Venipuncture / Unknown 05/30/2024 5:13 AM EDT 05/30/2024 5:26 AM EDT us Maite Austin MD LAB BLOOD ORDERABLES Final Resu lt [facility] [address] [place] [address] * (ABNORMAL) CBC and Differential (05/30/2024 5:13 AM EDT) [facility] Signature WBC Count 23.21(H) 3.70 - 10.30 10*3/uL LAB HEMATOLOGY METHOD 05/30/2024 5:38 AM EDT [facility] RBC Count 3.23(L) 3.90 - 5.20 10*6/uL LAB HEMATOLOGY METHOD 05/30/2024 5:38 AM EDT [facility] HGB 9.7(L) 11.2 - 15.7 g/dL LAB HEMATOLOGY METHOD 05/30/2024 5:38 AM EDT [facility] HCT 29.7(L) 34.0 - 45.0 % LAB HEMATOLOGY METHOD 05/30/2024 5:38 AM EDT [facility] Platelet Count 603(H) 155 - 369 10*3/uL LAB HEMATOLOGY METHOD 05/30/2024 5:38 AM EDT [facility] MCV 92 79 - 98 fL LAB HEMATOLOGY METHOD 05/30/2024 5:38 AM EDT [facility] MCH 30.0 26.0 - 32.0 pg LAB HEMATOLOGY METHOD 05/30/2024 5:38 AM EDT [facility] MCHC 32.7 30.7 - 35.5 g/dL LAB HEMATOLOGY METHOD 05/30/2024 5:38 AM EDT [facility] RDW 15.9(H) 11.5 - 14.5 % LAB HEMATOLOGY METHOD 05/30/2024 5:38 AM EDT [facility] MPV 9.8 8.8 - 12.5 fL LAB HEMATOLOGY METHOD 05/30/2024 5:38 AM EDT [facility] nRBC 0.0 <=0.0 per 100 WBCs LAB HEMATOLOGY METHOD 05/30/2024 5:38 AM EDT [facility] Differential Type Automated LAB HEMATOLOGY METHOD 05/30/2024 5:38 AM EDT [facility] Neutrophils % 75 % LAB HEMATOLOGY METHOD 05/30/2024 5:38 AM EDT [facility] Lymphocytes % 9 % LAB HEMATOLOGY METHOD 05/30/2024 5:38 AM EDT [facility] Monocytes % 8 % LAB HEMATOLOGY METHOD 05/30/2024 5:38 AM EDT [facility] Eosinophils % 1 % LAB HEMATOLOGY METHOD 05/30/2024 5:38 AM EDT [facility] Basophils % 1 % LAB HEMATOLOGY METHOD 05/30/2024 5:38 AM EDT [facility] Immature Granulocytes % 6 % LAB HEMATOLOGY METHOD 05/30/2024 5:38 AM EDT [facility] Neutrophils Absolute 17.83(H) 1.60 - 6.10 10*3/uL LAB HEMATOLOGY METHOD 05/30/2024 5:38 AM EDT [facility] Lymphocytes Absolute 1.98 1.20 - 3.90 10*3/uL LAB HEMATOLOGY METHOD 05/30/2024 5:38 AM EDT [facility] Monocytes Absolute 1.73(H) 0.30 - 0.90 10*3/uL LAB HEMATOLOGY METHOD 05/30/2024 5:38 AM EDT [facility] Eosinophils Absolute 0.18 0.00 - 0.50 10*3/uL LAB HEMATOLOGY METHOD 05/30/2024 5:38 AM EDT [facility] Basophils Absolute 0.11(H) 0.00 - 0.10 10*3/uL LAB HEMATOLOGY METHOD 05/30/2024 5:38 AM EDT [facility] Immature Granulocytes Absolute 1.38(H) 0.00 - 0.06 10*3/uL LAB HEMATOLOGY METHOD 05/30/2024 5:38 AM EDT [facility] Blood Venous blood specimen / Unknown Venipuncture / Unknown 05/30/2024 5:13 AM EDT 05/30/2024 5:28 AM EDT Narrative [facility] - 05/30/2024 5:38 AM EDT Therapeutic decision making should be based on absolute values, rather than percentages. us Maite Austin MD LAB BLOOD ORDERABLES Final Resu lt [facility] [address] [place] [address] * XR Chest 1 View (05/30/2024 3:11 [...] - 4.5 mg/dL 05/29/2024 7:43 AM EDT [facility] Blood Venous blood specimen / Unknown Venipuncture / Unknown 05/29/2024 7:00 AM EDT 05/29/2024 7:06 AM EDT us Maite Austin MD LAB BLOOD ORDERABLES Final Resu lt [facility] [address] [place] [address] * (ABNORMAL) Basic metabolic panel (05/29/2024 7:00 AM EDT) Glucose, Plasma 104(H) 74 - 99 mg/dL 05/29/2024 7:43 AM EDT [facility] BUN, Plasma 13 7 - 21 mg/dL 05/29/2024 7:43 AM EDT [facility] Creatinine, Plasma 0.58(L) 0.60 - 1.10 mg/dL 05/29/2024 7:43 AM EDT [facility] BUN/Creatinine Ratio 22 05/29/2024 7:43 AM EDT [facility] Sodium, Plasma 132(L) 136 - 145 mmol/L 05/29/2024 7:43 AM EDT [facility] Potassium, Plasma 4.0 3.6 - 4.9 mmol/L 05/29/2024 7:43 AM EDT [facility] Chloride, Plasma 97 97 - 107 mmol/L 05/29/2024 7:43 AM EDT [facility] CO2, Plasma 25 22 - 29 mmol/L 05/29/2024 7:43 AM EDT [facility] Anion Gap 10 6 - 16 mmol/L 05/29/2024 7:43 AM EDT [facility] Total Calcium, Plasma 8.3(L) 8.9 - 10.2 mg/dL 05/29/2024 7:43 AM EDT [facility] eGFRcr 107.7 mL/min/1.7 3m*2 05/29/2024 7:43 AM EDT [facility] Comment:Reported eGFRcr in m L/min/1.73m2 is based the CKD-EPI 2020 equation that does not use a race coefficient. Blood Venous blood specimen / Unknown Venipuncture / Unknown 05/29/2024 7:00 AM EDT 05/29/2024 7:06 AM EDT us Maite Austin MD LAB BLOOD ORDERABLES Final Resu lt Performing Organization Address City/[facility] Co de Phone Number [facility] [address] [place] [address] * (ABNORMAL) POCT glucose meter (05/29/2024 6:51 AM EDT) Pathologist [facility] POCT Glucose 118(H) 74 - 99 mg/dL [...] Comment 05/29/2024 6:52 AM EDT [facility] C.O.D. Biller ID Cydney Trevizo 05/29/2024 6:52 AM EDT [facility] Device ID [id number] 05/29/2024 6:52 AM EDT [facility] Specimen Type POC Capillary 05/29/2024 6:52 AM EDT [facility] Blood Capillary blood specimen / Unknown 05/29/2024 6:51 AM EDT 05/29/2024 6:52 AM EDT us Maite Austin MD LAB POINT OF CARE TE ST DOCKED DEVICE UNSOLICITED RESULTS Final Result Performing Organization Address City/[facility] Co de Phone Number [facility] [address] [place] [address] * Morphology (05/29/2024 5:35 AM EDT) Pathologist [facility] Polychromasia Slight LAB HEMATOLOGY METHOD 05/29/2024 8:34 AM EDT [facility] RBC Morphology Slide Reviewed LAB HEMATOLOGY METHOD 05/29/2024 8:34 AM EDT [facility] Platelet Estimate Platelet smear estimate consistent with automated count LAB HEMATOLOGY METHOD 05/29/2024 8:34 AM EDT [facility] Blood Blood sample taken from central line / Unknown Venipuncture / Unknown 05/29/2024 5:35 AM EDT 05/29/2024 5:56 AM EDT us Maite Austin MD LAB BLOOD ORDERABLES Final Resu lt [facility] [address] [place] [address] * (ABNORMAL) Manual Differential (05/29/2024 5:35 AM EDT) Blasts % 0 % LAB HEMATOLOGY METHOD 05/29/2024 8:34 AM EDT [facility] Promyelocytes % 0 % LAB HEMATOLOGY METHOD 05/29/2024 8:34 AM EDT [facility] Myelocytes % 4 % LAB HEMATOLOGY METHOD 05/29/2024 8:34 AM EDT [facility] Metamyelocytes % 5 % LAB HEMATOLOGY METHOD 05/29/2024 8:34 AM EDT [facility] Neutrophils % 82 % LAB HEMATOLOGY METHOD 05/29/2024 8:34 AM EDT [facility] Lymphocytes % 3 % LAB HEMATOLOGY METHOD 05/29/2024 8:34 AM EDT [facility] Reactive Lymphocytes % 1 % LAB HEMATOLOGY METHOD 05/29/2024 8:34 AM EDT [facility] Monocytes % 3 % LAB HEMATOLOGY METHOD 05/29/2024 8:34 AM EDT [facility] Eosinophils % 2 % LAB HEMATOLOGY METHOD 05/29/2024 8:34 AM EDT [facility] Basophils % 0 % LAB HEMATOLOGY METHOD 05/29/2024 8:34 AM EDT [facility] Blasts Absolute 0.00 10*3/UL LAB HEMATOLOGY METHOD 05/29/2024 8:34 AM EDT [facility] Promyelocytes Absolute 0.00 10*3/uL LAB HEMATOLOGY METHOD 05/29/2024 8:34 AM EDT [facility] Myelocytes Absolute 0.90 10*3/uL LAB HEMATOLOGY METHOD 05/29/2024 8:34 AM EDT [facility] Metamyelocytes Absolute 1.13 10*3/uL LAB HEMATOLOGY METHOD 05/29/2024 8:34 AM EDT [facility] Neutrophils Absolute 18.47(H) 1.60 - 6.10 10*3/uL LAB HEMATOLOGY METHOD 05/29/2024 8:34 AM EDT [facility] Lymphocytes Absolute 0.68(L) 1.20 - 3.90 10*3/uL LAB HEMATOLOGY METHOD 05/29/2024 8:34 AM EDT [facility] Reactive Lymphocytes Absolute 0.23 10*3/uL LAB HEMATOLOGY METHOD 05/29/2024 8:34 AM EDT [facility] Monocytes Absolute 0.68 0.30 - 0.90 10*3/uL LAB HEMATOLOGY METHOD 05/29/2024 8:34 AM EDT [facility] Eosinophils Absolute 0.45 0.00 - 0.50 10*3/uL LAB HEMATOLOGY METHOD 05/29/2024 8:34 AM EDT [facility] Basophils Absolute 0.00 0.00 - 0.10 10*3/uL LAB HEMATOLOGY METHOD 05/29/2024 8:34 AM EDT [facility] Blood Blood sample taken from central line / Unknown Venipuncture / Unknown 05/29/2024 5:35 AM EDT 05/29/2024 5:56 AM EDT us Maite Austin MD LAB BLOOD ORDERABLES Final Resu lt [facility] [address] [place] [address] * (ABNORMAL) Renal Function Panel, Plasma (05/29/2024 5:35 AM EDT) Glucose, Plasma 600(HH) 74 - 99 mg/dL 05/29/2024 6:46 AM EDT [facility] BUN, Plasma 12 7 - 21 mg/dL 05/29/2024 6:46 AM EDT [facility] Creatinine, Plasma 0.59(L) 0.60 - 1.10 mg/dL 05/29/2024 6:46 AM EDT [facility] BUN/Creatinine Ratio 20 05/29/2024 6:46 AM EDT [facility] Sodium, Plasma 128(L) 136 - 145 mmol/L 05/29/2024 6:46 AM EDT [facility] Potassium, Plasma 5.1(H) 3.6 - 4.9 mmol/L 05/29/2024 6:46 AM EDT [facility] Chloride, Plasma 95(L) 97 - 107 mmol/L 05/29/2024 6:46 AM EDT [facility] CO2, Plasma 22 22 - 29 mmol/L 05/29/2024 6:46 AM EDT [facility] Anion Gap 11 6 - 16 mmol/L 05/29/2024 6:46 AM EDT [facility] Total Calcium, Plasma 8.1(L) 8.9 - 10.2 mg/dL 05/29/2024 6:46 AM EDT [facility] Phosphorus, Plasma 5.6(H) 2.5 - 4.5 mg/dL 05/29/2024 6:46 AM EDT [facility] Albumin, Plasma 2.0(L) 3.5 - 5.2 g/dL 05/29/2024 6:46 AM EDT [facility] eGFRcr 107.3 mL/min/1.7 3m*2 05/29/2024 6:46 AM EDT [facility] Comment:Reported eGFRcr in m L/min/1.73m2 is based the CKD-EPI 2020 equation that does not use a race coefficient. Blood Blood sample taken from central line / Unknown Venipuncture / Unknown 05/29/2024 5:35 AM EDT 05/29/2024 5:53 AM EDT us Lora Llanes APRN LAB BLOOD ORDERABLES Final Result [facility] [address] [place] [address] * Magnesium, Plasma (05/29/2024 5:35 AM EDT) Magnesium, Plasma 2.1 1.9 - 2.4 mg/dL 05/29/2024 6:46 AM EDT [facility] Blood Blood sample taken from central line / Unknown Venipuncture / Unknown 05/29/2024 5:35 AM EDT 05/29/2024 5:53 AM EDT us Maite Austin MD LAB BLOOD ORDERABLES Final Resu lt [facility] [address] [place] [address] * (ABNORMAL) CBC and Differential (05/29/2024 5:35 AM EDT) WBC Count 22.52(H) 3.70 - 10.30 10*3/uL LAB HEMATOLOGY METHOD 05/29/2024 8:34 AM EDT [facility] RBC Count 3.08(L) 3.90 - 5.20 10*6/uL LAB HEMATOLOGY METHOD 05/29/2024 8:34 AM EDT [facility] HGB 9.3(L) 11.2 - 15.7 g/dL LAB HEMATOLOGY METHOD 05/29/2024 8:34 AM EDT [facility] HCT 28.9(L) 34.0 - 45.0 % LAB HEMATOLOGY METHOD 05/29/2024 8:34 AM EDT [facility] Platelet Count 528(H) 155 - 369 10*3/uL LAB HEMATOLOGY METHOD 05/29/2024 8:34 AM EDT [facility] MCV 94 79 - 98 fL LAB HEMATOLOGY METHOD 05/29/2024 8:34 AM EDT [facility] MCH 30.2 26.0 - 32.0 pg LAB HEMATOLOGY METHOD 05/29/2024 8:34 AM EDT [facility] MCHC 32.2 30.7 - 35.5 g/dL LAB HEMATOLOGY METHOD 05/29/2024 8:34 AM EDT [facility] RDW 16.3(H) 11.5 - 14.5 % LAB HEMATOLOGY METHOD 05/29/2024 8:34 AM EDT [facility] MPV 10.0 8.8 - 12.5 fL LAB HEMATOLOGY METHOD 05/29/2024 8:34 AM EDT [facility] nRBC 0.0 <=0.0 per 100 WBCs LAB HEMATOLOGY METHOD 05/29/2024 8:34 AM EDT [facility] Differential Type Manual LAB HEMATOLOGY METHOD 05/29/2024 8:34 AM EDT [facility] Blood Blood sample taken from central line / Unknown Venipuncture / Unknown 05/29/2024 5:35 AM EDT 05/29/2024 5:56 AM EDT Narrative [facility] - 05/29/2024 8:34 AM EDT Therapeutic [...] MD LAB BLOOD ORDERABLES Final Resu lt [facility] [address] [place] [address] * XR Chest 1 View (05/29/2024 2:20 [...] MD IMG XR PROCEDURES Final Result * [place] NEGATIVE PRESSURE WOUND THERAPY DME >50 SQ [...] of procedure: Tolerated well, no immediate complications Result [facility] Maite Austin MD IN CLINIC/BEDSIDE ORDERABLES Fi nal Result * [place] CRIT[facility], ADDL 30 MIN (05/28/2024 11:39 [...] line in place with similar position [facility] Stable cardiac mediastinal silhouette. No new [...] LAB HEMATOLOGY METHOD 05/28/2024 1:53 AM EDT [facility] Echinocytes Present LAB HEMATOLOGY METHOD 05/28/2024 1:53 AM EDT [facility] Elliptocytes/Ova locytes Present LAB HEMATOLOGY METHOD 05/28/2024 1:53 AM EDT [facility] RBC Morphology Slide Reviewed LAB HEMATOLOGY METHOD 05/28/2024 1:53 AM EDT [facility] Platelet Estimate Platelet smear estimate consistent with automated count LAB HEMATOLOGY METHOD 05/28/2024 1:53 AM EDT [facility] Clumped Platelets Present LAB HEMATOLOGY METHOD 05/28/2024 1:53 AM EDT [facility] Blood Venous blood specimen / Unknown Venipuncture / Unknown 05/28/2024 12:47 AM EDT 05/28/2024 12:58 AM EDT us Maite Austin MD LAB BLOOD ORDERABLES Final Resu lt [facility] [address] [place] [address] * (ABNORMAL) Manual Differential (05/28/2024 12:47 AM EDT) Blasts % 0 % LAB HEMATOLOGY METHOD 05/28/2024 1:53 AM EDT [facility] Promyelocytes % 0 % LAB HEMATOLOGY METHOD 05/28/2024 1:53 AM EDT [facility] Myelocytes % 3 % LAB HEMATOLOGY METHOD 05/28/2024 1:53 AM EDT [facility] Metamyelocytes % 6 % LAB HEMATOLOGY METHOD 05/28/2024 1:53 AM EDT [facility] Neutrophils % 75 % LAB HEMATOLOGY METHOD 05/28/2024 1:53 AM EDT [facility] Lymphocytes % 8 % LAB HEMATOLOGY METHOD 05/28/2024 1:53 AM EDT [facility] Reactive Lymphocytes % 0 % LAB HEMATOLOGY METHOD 05/28/2024 1:53 AM EDT [facility] Monocytes % 4 % LAB HEMATOLOGY METHOD 05/28/2024 1:53 AM EDT [facility] Eosinophils % 2 % LAB HEMATOLOGY METHOD 05/28/2024 1:53 AM EDT [facility] Basophils % 2 % LAB HEMATOLOGY METHOD 05/28/2024 1:53 AM EDT [facility] Blasts Absolute 0.00 10*3/UL LAB HEMATOLOGY METHOD 05/28/2024 1:53 AM EDT [facility] Promyelocytes Absolute 0.00 10*3/uL LAB HEMATOLOGY METHOD 05/28/2024 1:53 AM EDT [facility] Myelocytes Absolute 0.75 10*3/uL LAB HEMATOLOGY METHOD 05/28/2024 1:53 AM EDT [facility] Metamyelocytes Absolute 1.50 10*3/uL LAB HEMATOLOGY METHOD 05/28/2024 1:53 AM EDT [facility] Neutrophils Absolute 18.75(H) 1.60 - 6.10 10*3/uL LAB HEMATOLOGY METHOD 05/28/2024 1:53 AM EDT [facility] Lymphocytes Absolute 2.00 1.20 - 3.90 10*3/uL LAB HEMATOLOGY METHOD 05/28/2024 1:53 AM EDT [facility] Reactive Lymphocytes Absolute 0.00 10*3/uL LAB HEMATOLOGY METHOD 05/28/2024 1:53 AM EDT [facility] Monocytes Absolute 1.00(H) 0.30 - 0.90 10*3/uL LAB HEMATOLOGY METHOD 05/28/2024 1:53 AM EDT [facility] Eosinophils Absolute 0.50 0.00 - 0.50 10*3/uL LAB HEMATOLOGY METHOD 05/28/2024 1:53 AM EDT [facility] Basophils Absolute 0.50(H) 0.00 - 0.10 10*3/uL LAB HEMATOLOGY METHOD 05/28/2024 1:53 AM EDT [facility] Blood Venous blood specimen / Unknown Venipuncture / Unknown 05/28/2024 12:47 AM EDT 05/28/2024 12:58 AM EDT us Maite Austin MD LAB BLOOD ORDERABLES Final Resu lt [facility] [address] [place] [address] * (ABNORMAL) Renal Function Panel, Plasma (05/28/2024 12:47 AM EDT) Glucose, Plasma 106(H) 74 - 99 mg/dL 05/28/2024 1:27 AM EDT [facility] BUN, Plasma 15 7 - 21 mg/dL 05/28/2024 1:27 AM EDT [facility] Creatinine, Plasma 0.66 0.60 - 1.10 mg/dL 05/28/2024 1:27 AM EDT [facility] BUN/Creatinine Ratio 23 05/28/2024 1:27 AM EDT [facility] Sodium, Plasma 137 136 - 145 mmol/L 05/28/2024 1:27 AM EDT [facility] Potassium, Plasma 4.3 3.6 - 4.9 mmol/L 05/28/2024 1:27 AM EDT [facility] Chloride, Plasma 102 97 - 107 mmol/L 05/28/2024 1:27 AM EDT [facility] CO2, Plasma 26 22 - 29 mmol/L 05/28/2024 1:27 AM EDT [facility] Anion Gap 9 6 - 16 mmol/L 05/28/2024 1:27 AM EDT [facility] Total Calcium, Plasma 8.2(L) 8.9 - 10.2 mg/dL 05/28/2024 1:27 AM EDT [facility] Phosphorus, Plasma 3.8 2.5 - 4.5 mg/dL 05/28/2024 1:27 AM EDT [facility] Albumin, Plasma 2.1(L) 3.5 - 5.2 g/dL 05/28/2024 1:27 AM EDT [facility] eGFRcr 104.4 mL/min/1.7 3m*2 05/28/2024 1:27 AM EDT [facility] Comment:Reported eGFRcr in m L/min/1.73m2 is based the CKD-EPI 2020 equation that does not use a race coefficient. Blood Venous blood specimen / Unknown Venipuncture / Unknown 05/28/2024 12:47 AM EDT 05/28/2024 12:56 AM EDT us Lora Llanes APRN LAB BLOOD ORDERABLES Final Result Performing Organization Address [facility]/ZIP Co de Phone Number [facility] [address] [place] [address] * Magnesium, Plasma (05/28/2024 12:47 AM EDT) Magnesium, Plasma 1.9 1.9 - 2.4 mg/dL 05/28/2024 1:27 AM EDT [facility] Blood Venous blood specimen / Unknown Venipuncture / Unknown 05/28/2024 12:47 AM EDT 05/28/2024 12:56 AM EDT us Maite Austin MD LAB BLOOD ORDERABLES Final Resu lt Performing Organization Address [facility]/ZIP Co de Phone Number [facility] [address] [place] [address] * (ABNORMAL) CBC and Differential (05/28/2024 12:47 AM EDT) WBC Count 25.00(H) 3.70 - 10.30 10*3/uL LAB HEMATOLOGY METHOD 05/28/2024 1:53 AM EDT [facility] RBC Count 3.23(L) 3.90 - 5.20 10*6/uL LAB HEMATOLOGY METHOD 05/28/2024 1:53 AM EDT [facility] HGB 9.7(L) 11.2 - 15.7 g/dL LAB HEMATOLOGY METHOD 05/28/2024 1:53 AM EDT [facility] HCT 30.1(L) 34.0 - 45.0 % LAB HEMATOLOGY METHOD 05/28/2024 1:53 AM EDT [facility] Platelet Count 442(H) 155 - 369 10*3/uL LAB HEMATOLOGY METHOD 05/28/2024 1:53 AM EDT [facility] MCV 93 79 - 98 fL LAB HEMATOLOGY METHOD 05/28/2024 1:53 AM EDT [facility] MCH 30.0 26.0 - 32.0 pg LAB HEMATOLOGY METHOD 05/28/2024 1:53 AM EDT [facility] MCHC 32.2 30.7 - 35.5 g/dL LAB HEMATOLOGY METHOD 05/28/2024 1:53 AM EDT [facility] RDW 16.1(H) 11.5 - 14.5 % LAB HEMATOLOGY METHOD 05/28/2024 1:53 AM EDT [facility] MPV 10.1 8.8 - 12.5 fL LAB HEMATOLOGY METHOD 05/28/2024 1:53 AM EDT [facility] nRBC 0.0 <=0.0 per 100 WBCs LAB HEMATOLOGY METHOD 05/28/2024 1:53 AM EDT [facility] Differential Type Manual LAB HEMATOLOGY METHOD 05/28/2024 1:53 AM EDT [facility] Blood Venous blood specimen / Unknown Venipuncture / Unknown 05/28/2024 12:47 AM EDT 05/28/2024 12:58 AM EDT Narrative [facility] - 05/28/2024 1:53 AM EDT [...] Immature Granulocytes is no longer being reported. Maite Austin MD LAB BLOOD ORDERABLES Final Resu lt [facility] [address] [place] [address] * XR Abdomen 1 View (05/27/2024 9:45 [...] - 99 mg/dL 05/27/2024 6:54 PM EDT [facility] Comment:Accuracy of a [...] Comment 05/27/2024 6:54 PM EDT [facility] C.O.D. Biller ID Sp Singer 05/27/2024 6:54 PM EDT [facility] Device ID [id number] 05/27/2024 6:54 PM EDT [facility] Specimen Type POC Capillary 05/27/2024 6:54 PM EDT [facility] Blood Capillary blood specimen / Unknown 05/27/2024 6:52 PM EDT 05/27/2024 6:54 PM EDT us Maite Austin MD LAB POINT OF CARE TE ST DOCKED DEVICE UNSOLICITED RESULTS Final Result Performing Organization Address City/State/[facility] Co de Phone Number [facility] [address] [place] [address] * [place] CRITICAL CARE, E/M 30-74 MINUTES (05/27/2024 11:12 [...] LAB HEMATOLOGY METHOD 05/27/2024 6:30 AM EDT [facility] Elliptocytes/Ova locytes Present LAB HEMATOLOGY METHOD 05/27/2024 6:30 AM EDT [facility] RBC Morphology Slide Reviewed LAB HEMATOLOGY METHOD 05/27/2024 6:30 AM EDT [facility] Platelet Estimate Platelet smear estimate consistent with automated count LAB HEMATOLOGY METHOD 05/27/2024 6:30 AM EDT [facility] Clumped Platelets Present LAB HEMATOLOGY METHOD 05/27/2024 6:30 AM EDT [facility] Blood Venous blood specimen / Unknown Venipuncture / Unknown 05/27/2024 4:54 AM EDT 05/27/2024 5:03 AM EDT us Maite Austin MD LAB BLOOD ORDERABLES Final Resu lt [facility] [address] [place] [address] * (ABNORMAL) Manual Differential (05/27/2024 4:54 AM EDT) Blasts % 0 % LAB HEMATOLOGY METHOD 05/27/2024 6:30 AM EDT [facility] Promyelocytes % 0 % LAB HEMATOLOGY METHOD 05/27/2024 6:30 AM EDT [facility] Myelocytes % 3 % LAB HEMATOLOGY METHOD 05/27/2024 6:30 AM EDT [facility] Metamyelocytes % 4 % LAB HEMATOLOGY METHOD 05/27/2024 6:30 AM EDT [facility] Neutrophils % 80 % LAB HEMATOLOGY METHOD 05/27/2024 6:30 AM EDT [facility] Lymphocytes % 4 % LAB HEMATOLOGY METHOD 05/27/2024 6:30 AM EDT [facility] Reactive Lymphocytes % 0 % LAB HEMATOLOGY METHOD 05/27/2024 6:30 AM EDT [facility] Monocytes % 6 % LAB HEMATOLOGY METHOD 05/27/2024 6:30 AM EDT [facility] Eosinophils % 3 % LAB HEMATOLOGY METHOD 05/27/2024 6:30 AM EDT [facility] Basophils % 0 % LAB HEMATOLOGY METHOD 05/27/2024 6:30 AM EDT [facility] Blasts Absolute 0.00 10*3/UL LAB HEMATOLOGY METHOD 05/27/2024 6:30 AM EDT [facility] Promyelocytes Absolute 0.00 10*3/uL LAB HEMATOLOGY METHOD 05/27/2024 6:30 AM EDT [facility] Myelocytes Absolute 0.92 10*3/uL LAB HEMATOLOGY METHOD 05/27/2024 6:30 AM EDT [facility] Metamyelocytes Absolute 1.23 10*3/uL LAB HEMATOLOGY METHOD 05/27/2024 6:30 AM EDT [facility] Neutrophils Absolute 24.62(H) 1.60 - 6.10 10*3/uL LAB HEMATOLOGY METHOD 05/27/2024 6:30 AM EDT [facility] Lymphocytes Absolute 1.23 1.20 - 3.90 10*3/uL LAB HEMATOLOGY METHOD 05/27/2024 6:30 AM EDT [facility] Reactive Lymphocytes Absolute 0.00 10*3/uL LAB HEMATOLOGY METHOD 05/27/2024 6:30 AM EDT [facility] Monocytes Absolute 1.85(H) 0.30 - 0.90 10*3/uL LAB HEMATOLOGY METHOD 05/27/2024 6:30 AM EDT [facility] Eosinophils Absolute 0.92(H) 0.00 - 0.50 10*3/uL LAB HEMATOLOGY METHOD 05/27/2024 6:30 AM EDT [facility] Basophils Absolute 0.00 0.00 - 0.10 10*3/uL LAB HEMATOLOGY METHOD 05/27/2024 6:30 AM EDT [facility] Blood Venous blood specimen / Unknown Venipuncture / Unknown 05/27/2024 4:54 AM EDT 05/27/2024 5:03 AM EDT us Maite Austin MD LAB BLOOD ORDERABLES Final Resu lt [facility] [address] [place] [address] * (ABNORMAL) Renal Function Panel, Plasma (05/27/2024 4:54 AM EDT) [facility] Signature Glucose, Plasma 127(H) 74 - 99 mg/dL 05/27/2024 5:34 AM EDT [facility] BUN, Plasma 16 7 - 21 mg/dL 05/27/2024 5:34 AM EDT [facility] Creatinine, Plasma 0.71 0.60 - 1.10 mg/dL 05/27/2024 5:34 AM EDT [facility] BUN/Creatinine Ratio 23 05/27/2024 5:34 AM EDT [facility] Sodium, Plasma 134(L) 136 - 145 mmol/L 05/27/2024 5:34 AM EDT [facility] Potassium, Plasma 4.1 3.6 - 4.9 mmol/L 05/27/2024 5:34 AM EDT [facility] Chloride, Plasma 99 97 - 107 mmol/L 05/27/2024 5:34 AM EDT [facility] CO2, Plasma 26 22 - 29 mmol/L 05/27/2024 5:34 AM EDT [facility] Anion Gap 9 6 - 16 mmol/L 05/27/2024 5:34 AM EDT [facility] Total Calcium, Plasma 8.4(L) 8.9 - 10.2 mg/dL 05/27/2024 5:34 AM EDT [facility] Phosphorus, Plasma 4.7(H) 2.5 - 4.5 mg/dL 05/27/2024 5:34 AM EDT [facility] Albumin, Plasma 2.1(L) 3.5 - 5.2 g/dL 05/27/2024 5:34 AM EDT [facility] eGFRcr 101.2 mL/min/1.7 3m*2 05/27/2024 5:34 AM EDT [facility] Comment:Reported eGFRcr in m L/min/1.73m2 is based the CKD-EPI 2020 equation that does not use a race coefficient. Blood Venous blood specimen / Unknown Venipuncture / Unknown 05/27/2024 4:54 AM EDT 05/27/2024 5:02 AM EDT us Lora Llanes APRN LAB BLOOD ORDERABLES Final Result [facility] [address] [place] [address] * Magnesium, Plasma (05/27/2024 4:54 AM EDT) Magnesium, Plasma 2.1 1.9 - 2.4 mg/dL 05/27/2024 5:34 AM EDT [facility] Blood Venous blood specimen / Unknown Venipuncture / Unknown 05/27/2024 4:54 AM EDT 05/27/2024 5:02 AM EDT us Maite Austin MD LAB BLOOD ORDERABLES Final Resu lt Performing Organization Address City/[facility]/ZIP Co de Phone Number [facility] [address] [place] [address] * (ABNORMAL) CBC and Differential (05/27/2024 4:54 AM EDT) WBC Count 30.77(H) 3.70 - 10.30 10*3/uL LAB HEMATOLOGY METHOD 05/27/2024 6:30 AM EDT [facility] RBC Count 3.22(L) 3.90 - 5.20 10*6/uL LAB HEMATOLOGY METHOD 05/27/2024 6:30 AM EDT [facility] HGB 9.5(L) 11.2 - 15.7 g/dL LAB HEMATOLOGY METHOD 05/27/2024 6:30 AM EDT [facility] HCT 29.8(L) 34.0 - 45.0 % LAB HEMATOLOGY METHOD 05/27/2024 6:30 AM EDT [facility] Platelet Count 413(H) 155 - 369 10*3/uL LAB HEMATOLOGY METHOD 05/27/2024 6:30 AM EDT [facility] MCV 93 79 - 98 fL LAB HEMATOLOGY METHOD 05/27/2024 6:30 AM EDT [facility] MCH 29.5 26.0 - 32.0 pg LAB HEMATOLOGY METHOD 05/27/2024 6:30 AM EDT [facility] MCHC 31.9 30.7 - 35.5 g/dL LAB HEMATOLOGY METHOD 05/27/2024 6:30 AM EDT [facility] RDW 15.9(H) 11.5 - 14.5 % LAB HEMATOLOGY METHOD 05/27/2024 6:30 AM EDT [facility] MPV 10.2 8.8 - 12.5 fL LAB HEMATOLOGY METHOD 05/27/2024 6:30 AM EDT [facility] nRBC 0.3(H) <=0.0 per 100 WBCs LAB HEMATOLOGY METHOD 05/27/2024 6:30 AM EDT [facility] Differential Type Manual LAB HEMATOLOGY METHOD 05/27/2024 6:30 AM EDT [facility] Blood Venous blood specimen / Unknown Venipuncture / Unknown 05/27/2024 4:54 AM EDT 05/27/2024 5:03 AM EDT Narrative [facility] - 05/27/2024 6:30 AM EDT [...] MD LAB BLOOD ORDERABLES Final Resu lt [facility] [address] [place] [address] * XR Chest 1 View (05/27/2024 2:37 [...] POCT glucose meter (05/26/2024 6:18 PM EDT) Pathologist [facility] POCT Glucose 124(H) 74 - 99 mg/dL 05/26/2024 6:19 PM EDT [facility] Comment:Accuracy of a glucos e result [...] Comment 05/26/2024 6:19 PM EDT [facility] C.O.D. Biller ID Reyna Le 05/26/2024 6:19 PM EDT [facility] Device ID [id number] 05/26/2024 6:19 PM EDT [facility] Specimen Type POC Capillary 05/26/2024 6:19 PM EDT [facility] Blood Capillary blood specimen / Unknown 05/26/2024 6:18 PM EDT 05/26/2024 6:19 PM EDT us Maite Austin MD LAB POINT OF CARE TE ST DOCKED DEVICE UNSOLICITED RESULTS Final Result Performing Organization Address City/State/[facility] de Phone Number [facility] [address] [place] [address] * XR Chest 1 View (05/26/2024 4:30 [...] Lorri Lopez MD on 05/26/2024 5:17 PM Maite Austin MD IMG XR PROCEDURES Final Result * [place] CRIT[facility], ADDL 30 MIN (05/26/2024 3:17 [...] TEST ORDERABLES Final Result Performing Organization Address [facility] Co de Phone Number BLOOD BANK [address] [place] [address], [place] * Prepare Leukocyte Reduced RBC: 1 Units (05/26/2024 2:21 PM EDT) [facility] Product Code [id number] CH BLOO D BANK Dispense Status Transfused BLOOD BANK Blood Expiration Date [id number] BLOOD BANK Unit Number [id number] CH B LOOD BANK Product Blood Type 7300 BLOOD BANK Blood Type B+ BLOOD BANK Crossmatch Compatible CH BLOOD BANK Other Maite Austin MD BLOOD BANK PRODUCT ORDERABLES F inal Result Performing Organization Address [facility] Phone Number BLOOD BANK [address] [place] [address], [place] * (ABNORMAL) POCT glucose meter (05/26/2024 12:19 PM EDT) [facility] POCT Glucose 129(H) 74 - 99 mg/dL [...] 05/26/2024 12:21 PM EDT [facility] C.O.D. Biller ID Reyna Le 05/26/2024 12:21 PM EDT [facility] Device ID [id number] 05/26/2024 12:21 PM EDT [facility] Specimen Type POC Capillary 05/26/2024 12:21 PM EDT [facility] Blood Capillary blood specimen / Unknown 05/26/2024 12:19 PM EDT 05/26/2024 12:21 PM EDT Maite Austin MD LAB POINT OF CARE TE ST DOCKED DEVICE UNSOLICITED RESULTS Final Result Performing Organization Address City/[facility] Co de Phone Number [facility] [address] [place] [address] * Morphology (05/26/2024 3:27 AM EDT) Polychromasia Slight LAB HEMATOLOGY METHOD 05/26/2024 4:24 AM EDT [facility] Elliptocytes/Ova locytes Present LAB HEMATOLOGY METHOD 05/26/2024 4:24 AM EDT [facility] RBC Morphology Slide Reviewed LAB HEMATOLOGY METHOD 05/26/2024 4:24 AM EDT [facility] Target Cells Present LAB HEMATOLOGY METHOD 05/26/2024 4:24 AM EDT [facility] Platelet Estimate Platelet smear estimate consistent with automated count LAB HEMATOLOGY METHOD 05/26/2024 4:24 AM EDT [facility] Clumped Platelets Present LAB HEMATOLOGY METHOD 05/26/2024 4:24 AM EDT [facility] Blood Venous blood specimen / Unknown Venipuncture / Unknown 05/26/2024 3:27 AM EDT 05/26/2024 3:38 AM EDT us Maite Austin MD LAB BLOOD ORDERABLES Final Resu lt [facility] [address] [place] [address] * (ABNORMAL) Manual Differential (05/26/2024 3:27 AM EDT) Blasts % 0 % LAB HEMATOLOGY METHOD 05/26/2024 4:24 AM EDT [facility] Promyelocytes % 0 % LAB HEMATOLOGY METHOD 05/26/2024 4:24 AM EDT [facility] Myelocytes % 0 % LAB HEMATOLOGY METHOD 05/26/2024 4:24 AM EDT [facility] Metamyelocytes % 0 % LAB HEMATOLOGY METHOD 05/26/2024 4:24 AM EDT [facility] Neutrophils % 81 % LAB HEMATOLOGY METHOD 05/26/2024 4:24 AM EDT [facility] Lymphocytes % 9 % LAB HEMATOLOGY METHOD 05/26/2024 4:24 AM EDT [facility] Reactive Lymphocytes % 0 % LAB HEMATOLOGY METHOD 05/26/2024 4:24 AM EDT [facility] Monocytes % 10 % LAB HEMATOLOGY METHOD 05/26/2024 4:24 AM EDT [facility] Eosinophils % 0 % LAB HEMATOLOGY METHOD 05/26/2024 4:24 AM EDT [facility] Basophils % 0 % LAB HEMATOLOGY METHOD 05/26/2024 4:24 AM EDT [facility] Blasts Absolute 0.00 10*3/UL LAB HEMATOLOGY METHOD 05/26/2024 4:24 AM EDT [facility] Promyelocytes Absolute 0.00 10*3/uL LAB HEMATOLOGY METHOD 05/26/2024 4:24 AM EDT [facility] Myelocytes Absolute 0.00 10*3/uL LAB HEMATOLOGY METHOD 05/26/2024 4:24 AM EDT [facility] Metamyelocytes Absolute 0.00 10*3/uL LAB HEMATOLOGY METHOD 05/26/2024 4:24 AM EDT [facility] Neutrophils Absolute 28.12(H) 1.60 - 6.10 10*3/uL LAB HEMATOLOGY METHOD 05/26/2024 4:24 AM EDT [facility] Lymphocytes Absolute 3.12 1.20 - 3.90 10*3/uL LAB HEMATOLOGY METHOD 05/26/2024 4:24 AM EDT [facility] Reactive Lymphocytes Absolute 0.00 10*3/uL LAB HEMATOLOGY METHOD 05/26/2024 4:24 AM EDT [facility] Monocytes Absolute 3.47(H) 0.30 - 0.90 10*3/uL LAB HEMATOLOGY METHOD 05/26/2024 4:24 AM EDT [facility] Eosinophils Absolute 0.00 0.00 - 0.50 10*3/uL LAB HEMATOLOGY METHOD 05/26/2024 4:24 AM EDT [facility] Basophils Absolute 0.00 0.00 - 0.10 10*3/uL LAB HEMATOLOGY METHOD 05/26/2024 4:24 AM EDT [facility] Blood Venous blood specimen / Unknown Venipuncture / Unknown 05/26/2024 3:27 AM EDT 05/26/2024 3:38 AM EDT us Maite Austin MD LAB BLOOD ORDERABLES Final Resu lt [facility] [address] [place] [address] * (ABNORMAL) Renal Function Panel, Plasma (05/26/2024 3:27 AM EDT) Glucose, Plasma 122(H) 74 - 99 mg/dL 05/26/2024 4:12 AM EDT [facility] BUN, Plasma 17 7 - 21 mg/dL 05/26/2024 4:12 AM EDT [facility] Creatinine, Plasma 0.73 0.60 - 1.10 mg/dL 05/26/2024 4:12 AM EDT [facility] BUN/Creatinine Ratio 23 05/26/2024 4:12 AM EDT [facility] Sodium, Plasma 136 136 - 145 mmol/L 05/26/2024 4:12 AM EDT [facility] Potassium, Plasma 4.5 3.6 - 4.9 mmol/L 05/26/2024 4:12 AM EDT [facility] Chloride, Plasma 104 97 - 107 mmol/L 05/26/2024 4:12 AM EDT [facility] CO2, Plasma 24 22 - 29 mmol/L 05/26/2024 4:12 AM EDT [facility] Anion Gap 8 6 - 16 mmol/L 05/26/2024 4:12 AM EDT [facility] Total Calcium, Plasma 7.8(L) 8.9 - 10.2 mg/dL 05/26/2024 4:12 AM EDT [facility] Phosphorus, Plasma 4.0 2.5 - 4.5 mg/dL 05/26/2024 4:12 AM EDT [facility] Albumin, Plasma 2.0(L) 3.5 - 5.2 g/dL 05/26/2024 4:12 AM EDT [facility] eGFRcr 97.9 mL/min/1.7 3m*2 05/26/2024 4:12 AM EDT [facility] Comment:Reported eGFRcr in m L/min/1.73m2 is based the CKD-EPI 2020 equation that does not use a race coefficient. Blood Venous blood specimen / Unknown Venipuncture / Unknown 05/26/2024 3:27 AM EDT 05/26/2024 3:38 AM EDT us Lora Llanes APRN LAB BLOOD ORDERABLES Final Result Performing Organization Address City/[facility]/ZIP Co de Phone Number [facility] [address] [place] [address] * Magnesium, Plasma (05/26/2024 3:27 AM EDT) Magnesium, Plasma 2.1 1.9 - 2.4 mg/dL 05/26/2024 4:12 AM EDT [facility] Blood Venous blood specimen / Unknown Venipuncture / Unknown 05/26/2024 3:27 AM EDT 05/26/2024 3:38 AM EDT us Maite Austin MD LAB BLOOD ORDERABLES Final Resu lt Performing Organization Address City/[facility]/ZIP Co de Phone Number [facility] [address] [place] [address] * (ABNORMAL) CBC and Differential (05/26/2024 3:27 AM EDT) WBC Count 34.71(H) 3.70 - 10.30 10*3/uL LAB HEMATOLOGY METHOD 05/26/2024 4:24 AM EDT [facility] RBC Count 2.35(L) 3.90 - 5.20 10*6/uL LAB HEMATOLOGY METHOD 05/26/2024 4:24 AM EDT [facility] HGB 7.1(L) 11.2 - 15.7 g/dL LAB HEMATOLOGY METHOD 05/26/2024 4:24 AM EDT [facility] HCT 22.4(L) 34.0 - 45.0 % LAB HEMATOLOGY METHOD 05/26/2024 4:24 AM EDT [facility] Platelet Count 378(H) 155 - 369 10*3/uL LAB HEMATOLOGY METHOD 05/26/2024 4:24 AM EDT [facility] MCV 95 79 - 98 fL LAB HEMATOLOGY METHOD 05/26/2024 4:24 AM EDT [facility] MCH 30.2 26.0 - 32.0 pg LAB HEMATOLOGY METHOD 05/26/2024 4:24 AM EDT [facility] MCHC 31.7 30.7 - 35.5 g/dL LAB HEMATOLOGY METHOD 05/26/2024 4:24 AM EDT [facility] RDW 16.7(H) 11.5 - 14.5 % LAB HEMATOLOGY METHOD 05/26/2024 4:24 AM EDT [facility] MPV 10.2 8.8 - 12.5 fL LAB HEMATOLOGY METHOD 05/26/2024 4:24 AM EDT [facility] nRBC 0.3(H) <=0.0 per 100 WBCs LAB HEMATOLOGY METHOD 05/26/2024 4:24 AM EDT [facility] Differential Type Manual LAB HEMATOLOGY METHOD 05/26/2024 4:24 AM EDT [facility] Blood Venous blood specimen / Unknown Venipuncture / Unknown 05/26/2024 3:27 AM EDT 05/26/2024 3:38 AM EDT Narrative [facility] - 05/26/2024 4:24 AM EDT [...] MD LAB BLOOD ORDERABLES Final Resu lt [facility] [address] [place] [address] * XR Chest 1 View (05/26/2024 2:09 [...] LAB HEMATOLOGY METHOD 05/25/2024 8:51 PM EDT [facility] HCT 23.1(L) 34.0 - 45.0 % LAB HEMATOLOGY METHOD 05/25/2024 8:51 PM EDT [facility] Blood Arterial blood specimen / Unknown Venipuncture / Unknown 05/25/2024 8:32 PM EDT 05/25/2024 8:45 PM EDT us Lora Llnaes APRN LAB BLOOD ORDERABLES Final Result Performing Organization Address City/[facility]/ZIP Co de Phone Number [facility] [address] [place] [address] * (ABNORMAL) POCT glucose meter (05/25/2024 6:17 PM EDT) [facility] POCT Glucose 116(H) 74 - 99 mg/dL [...] Comment 05/25/2024 6:19 PM EDT [facility] C.O.D. Biller ID Sp Singer 05/25/2024 6:19 PM EDT [facility] Device ID [id number] 05/25/2024 6:19 PM EDT [facility] Specimen Type POC Arterial 05/25/2024 6:19 PM EDT [facility] Blood Arterial blood specimen / Unknown 05/25/2024 6:17 PM EDT 05/25/2024 6:19 PM EDT us Maite Austin MD LAB POINT OF CARE TE ST DOCKED DEVICE UNSOLICITED RESULTS Final Result [facility] [address] [place] [address] * (ABNORMAL) Hemoglobin and hematocrit, blood (05/25/2024 1:55 PM EDT) HGB 7.4(L) 11.2 - 15.7 g/dL LAB HEMATOLOGY METHOD 05/25/2024 2:26 PM EDT [facility] HCT 23.6(L) 34.0 - 45.0 % LAB HEMATOLOGY METHOD 05/25/2024 2:26 PM EDT [facility] Blood Arterial blood specimen / Unknown Arterial Line / Unknown 05/25/2024 1:55 PM EDT 05/25/2024 2:19 PM EDT us Maite Austin MD LAB BLOOD ORDERABLES Final Resu lt [facility] [address] [place] [address] * (ABNORMAL) Hemogram (CBC) (05/25/2024 8:11 AM EDT) WBC Count 41.23(H) 3.70 - 10.30 10*3/uL LAB HEMATOLOGY METHOD 05/25/2024 8:28 AM EDT [facility] RBC Count 2.42(L) 3.90 - 5.20 10*6/uL LAB HEMATOLOGY METHOD 05/25/2024 8:28 AM EDT [facility] HGB 7.2(L) 11.2 - 15.7 g/dL LAB HEMATOLOGY METHOD 05/25/2024 8:28 AM EDT [facility] HCT 22.4(L) 34.0 - 45.0 % LAB HEMATOLOGY METHOD 05/25/2024 8:28 AM EDT [facility] Platelet Count 373(H) 155 - 369 10*3/uL LAB HEMATOLOGY METHOD 05/25/2024 8:28 AM EDT [facility] MCV 93 79 - 98 fL LAB HEMATOLOGY METHOD 05/25/2024 8:28 AM EDT [facility] MCH 29.8 26.0 - 32.0 pg LAB HEMATOLOGY METHOD 05/25/2024 8:28 AM EDT [facility] MCHC 32.1 30.7 - 35.5 g/dL LAB HEMATOLOGY METHOD 05/25/2024 8:28 AM EDT [facility] RDW 16.3(H) 11.5 - 14.5 % LAB HEMATOLOGY METHOD 05/25/2024 8:28 AM EDT [facility] MPV 10.3 8.8 - 12.5 fL LAB HEMATOLOGY METHOD 05/25/2024 8:28 AM EDT [facility] nRBC 0.5(H) <=0.0 per 100 WBCs LAB HEMATOLOGY METHOD 05/25/2024 8:28 AM EDT [facility] Blood Arterial blood specimen / Unknown Arterial Line / Unknown 05/25/2024 8:11 AM EDT 05/25/2024 8:19 AM EDT us Lora Llanes ACCOUNTS RECEIVABLE SPECIALIST LAB BLOOD ORDERABLES Final Result Performing Organization Address City/[facility]/ZIP Co de Phone Number [facility] [address] [place] [address] * (ABNORMAL) POCT glucose meter (05/25/2024 6:26 AM EDT) POCT Glucose 121(H) 74 - 99 mg/dL [...] Comment 05/25/2024 6:28 AM EDT [facility] C.O.D. Biller ID Vivien Gilbert 05/25/2024 6:28 AM EDT [facility] Device ID [id number] 05/25/2024 6:28 AM EDT [facility] Specimen Type POC Arterial 05/25/2024 6:28 AM EDT [facility] Blood Arterial blood specimen / Unknown 05/25/2024 6:26 AM EDT 05/25/2024 6:28 AM EDT us Maite Austin MD LAB POINT OF CARE TE ST DOCKED DEVICE UNSOLICITED RESULTS Final Result Performing Organization Address City/[facility]/ZIP Co de Phone Number [facility] [address] [place] [address] * XR Chest 1 View (05/25/2024 3:07 [...] LAB HEMATOLOGY METHOD 05/25/2024 4:34 AM EDT [facility] Echinocytes Present LAB HEMATOLOGY METHOD 05/25/2024 4:34 AM EDT [facility] RBC Morphology Slide Reviewed LAB HEMATOLOGY METHOD 05/25/2024 4:34 AM EDT [facility] Platelet Estimate Platelet smear estimate consistent with automated count LAB HEMATOLOGY METHOD 05/25/2024 4:34 AM EDT [facility] Blood Venous blood specimen / Unknown Venipuncture / Unknown 05/25/2024 2:45 AM EDT 05/25/2024 2:52 AM EDT us Maite Austin MD LAB BLOOD ORDERABLES Final Resu lt [facility] [address] [place] [address] * (ABNORMAL) Manual Differential (05/25/2024 2:45 AM EDT) Blasts % 0 % LAB HEMATOLOGY METHOD 05/25/2024 4:34 AM EDT [facility] Promyelocytes % 0 % LAB HEMATOLOGY METHOD 05/25/2024 4:34 AM EDT [facility] Myelocytes % 1 % LAB HEMATOLOGY METHOD 05/25/2024 4:34 AM EDT [facility] Metamyelocytes % 5 % LAB HEMATOLOGY METHOD 05/25/2024 4:34 AM EDT [facility] Neutrophils % 80 % LAB HEMATOLOGY METHOD 05/25/2024 4:34 AM EDT [facility] Lymphocytes % 5 % LAB HEMATOLOGY METHOD 05/25/2024 4:34 AM EDT [facility] Reactive Lymphocytes % 0 % LAB HEMATOLOGY METHOD 05/25/2024 4:34 AM EDT [facility] Monocytes % 8 % LAB HEMATOLOGY METHOD 05/25/2024 4:34 AM EDT [facility] Eosinophils % 1 % LAB HEMATOLOGY METHOD 05/25/2024 4:34 AM EDT [facility] Basophils % 0 % LAB HEMATOLOGY METHOD 05/25/2024 4:34 AM EDT [facility] Blasts Absolute 0.00 10*3/UL LAB HEMATOLOGY METHOD 05/25/2024 4:34 AM EDT [facility] Promyelocytes Absolute 0.00 10*3/uL LAB HEMATOLOGY METHOD 05/25/2024 4:34 AM EDT [facility] Myelocytes Absolute 0.42 10*3/uL LAB HEMATOLOGY METHOD 05/25/2024 4:34 AM EDT [facility] Metamyelocytes Absolute 2.09 10*3/uL LAB HEMATOLOGY METHOD 05/25/2024 4:34 AM EDT [facility] Neutrophils Absolute 33.52(H) 1.60 - 6.10 10*3/uL LAB HEMATOLOGY METHOD 05/25/2024 4:34 AM EDT [facility] Lymphocytes Absolute 2.09 1.20 - 3.90 10*3/uL LAB HEMATOLOGY METHOD 05/25/2024 4:34 AM EDT [facility] Reactive Lymphocytes Absolute 0.00 10*3/uL LAB HEMATOLOGY METHOD 05/25/2024 4:34 AM EDT [facility] Monocytes Absolute 3.35(H) 0.30 - 0.90 10*3/uL LAB HEMATOLOGY METHOD 05/25/2024 4:34 AM EDT [facility] Eosinophils Absolute 0.42 0.00 - 0.50 10*3/uL LAB HEMATOLOGY METHOD 05/25/2024 4:34 AM EDT [facility] Basophils Absolute 0.00 0.00 - 0.10 10*3/uL LAB HEMATOLOGY METHOD 05/25/2024 4:34 AM EDT [facility] Blood Venous blood specimen / Unknown Venipuncture / Unknown 05/25/2024 2:45 AM EDT 05/25/2024 2:52 AM EDT us Maite Austin MD LAB BLOOD ORDERABLES Final Resu lt [facility] [address] [place] [address] * (ABNORMAL) Renal Function Panel, Plasma (05/25/2024 2:45 AM EDT) Glucose, Plasma 126(H) 74 - 99 mg/dL 05/25/2024 3:29 AM EDT [facility] BUN, Plasma 20 7 - 21 mg/dL 05/25/2024 3:29 AM EDT [facility] Creatinine, Plasma 0.91 0.60 - 1.10 mg/dL 05/25/2024 3:29 AM EDT [facility] BUN/Creatinine Ratio 22 05/25/2024 3:29 AM EDT [facility] Sodium, Plasma 138 136 - 145 mmol/L 05/25/2024 3:29 AM EDT [facility] Potassium, Plasma 5.0(H) 3.6 - 4.9 mmol/L 05/25/2024 3:29 AM EDT [facility] Chloride, Plasma 107 97 - 107 mmol/L 05/25/2024 3:29 AM EDT [facility] CO2, Plasma 25 22 - 29 mmol/L 05/25/2024 3:29 AM EDT [facility] Anion Gap 6 6 - 16 mmol/L 05/25/2024 3:29 AM EDT [facility] Total Calcium, Plasma 7.7(L) 8.9 - 10.2 mg/dL 05/25/2024 3:29 AM EDT [facility] Phosphorus, Plasma 3.5 2.5 - 4.5 mg/dL 05/25/2024 3:29 AM EDT [facility] Albumin, Plasma 1.9(L) 3.5 - 5.2 g/dL 05/25/2024 3:29 AM EDT [facility] eGFRcr 75.1 mL/min/1.7 3m*2 05/25/2024 3:29 AM EDT [facility] Comment:Reported eGFRcr in m L/min/1.73m2 is based the CKD-EPI 2020 equation that does not use a race coefficient. Blood Venous blood specimen / Unknown Venipuncture / Unknown 05/25/2024 2:45 AM EDT 05/25/2024 2:52 AM EDT us Lora Llanes ACCOUNTS RECEIVABLE SPECIALIST LAB BLOOD ORDERABLES Final Result [facility] [address] [place] [address] * Magnesium, Plasma (05/25/2024 2:45 AM EDT) Magnesium, Plasma 2.4 1.9 - 2.4 mg/dL 05/25/2024 3:29 AM EDT [facility] Blood Venous blood specimen / Unknown Venipuncture / Unknown 05/25/2024 2:45 AM EDT 05/25/2024 2:52 AM EDT us Maite Austin MD LAB BLOOD ORDERABLES Final Resu lt [facility] [address] [place] [address] * (ABNORMAL) CBC and Differential (05/25/2024 2:45 AM EDT) WBC Count 41.90(H) 3.70 - 10.30 10*3/uL LAB HEMATOLOGY METHOD 05/25/2024 4:34 AM EDT [facility] RBC Count 2.50(L) 3.90 - 5.20 10*6/uL LAB HEMATOLOGY METHOD 05/25/2024 4:34 AM EDT [facility] HGB 7.5(L) 11.2 - 15.7 g/dL LAB HEMATOLOGY METHOD 05/25/2024 4:34 AM EDT [facility] HCT 23.1(L) 34.0 - 45.0 % LAB HEMATOLOGY METHOD 05/25/2024 4:34 AM EDT [facility] Platelet Count 352 155 - 369 10*3/uL LAB HEMATOLOGY METHOD 05/25/2024 4:34 AM EDT [facility] MCV 92 79 - 98 fL LAB HEMATOLOGY METHOD 05/25/2024 4:34 AM EDT [facility] MCH 30.0 26.0 - 32.0 pg LAB HEMATOLOGY METHOD 05/25/2024 4:34 AM EDT [facility] MCHC 32.5 30.7 - 35.5 g/dL LAB HEMATOLOGY METHOD 05/25/2024 4:34 AM EDT [facility] RDW 16.2(H) 11.5 - 14.5 % LAB HEMATOLOGY METHOD 05/25/2024 4:34 AM EDT [facility] MPV 10.3 8.8 - 12.5 fL LAB HEMATOLOGY METHOD 05/25/2024 4:34 AM EDT [facility] nRBC 0.6(H) <=0.0 per 100 WBCs LAB HEMATOLOGY METHOD 05/25/2024 4:34 AM EDT [facility] Differential Type Manual LAB HEMATOLOGY METHOD 05/25/2024 4:34 AM EDT [facility] Blood Venous blood specimen / Unknown Venipuncture / Unknown 05/25/2024 2:45 AM EDT 05/25/2024 2:52 AM EDT Narrative [facility] - 05/25/2024 4:34 AM EDT [...] MD LAB BLOOD ORDERABLES Final Resu lt [facility] [address] [place] [address] * [place] [facility], E/M 30-74 MINUTES (05/24/2024 11:04 [...] LAB HEMATOLOGY METHOD 05/24/2024 1:46 PM EDT [facility] Echinocytes Present LAB HEMATOLOGY METHOD 05/24/2024 1:46 PM EDT [facility] RBC Morphology Slide Reviewed LAB HEMATOLOGY METHOD 05/24/2024 1:46 PM EDT [facility] Platelet Estimate Platelet smear estimate consistent with automated count LAB HEMATOLOGY METHOD 05/24/2024 1:46 PM EDT [facility] Blood Venous blood specimen / Unknown Venipuncture / Unknown 05/24/2024 10:18 AM EDT 05/24/2024 10:48 AM EDT us Maite Austin MD LAB BLOOD ORDERABLES Final Resu lt [facility] [address] [place] [address] * (ABNORMAL) Manual Differential (05/24/2024 10:18 AM EDT) Blasts % 0 % LAB HEMATOLOGY METHOD 05/24/2024 1:46 PM EDT [facility] Promyelocytes % 0 % LAB HEMATOLOGY METHOD 05/24/2024 1:46 PM EDT [facility] Myelocytes % 2 % LAB HEMATOLOGY METHOD 05/24/2024 1:46 PM EDT [facility] Metamyelocytes % 4 % LAB HEMATOLOGY METHOD 05/24/2024 1:46 PM EDT [facility] Neutrophils % 80 % LAB HEMATOLOGY METHOD 05/24/2024 1:46 PM EDT [facility] Lymphocytes % 8 % LAB HEMATOLOGY METHOD 05/24/2024 1:46 PM EDT [facility] Reactive Lymphocytes % 0 % LAB HEMATOLOGY METHOD 05/24/2024 1:46 PM EDT [facility] Monocytes % 6 % LAB HEMATOLOGY METHOD 05/24/2024 1:46 PM EDT [facility] Eosinophils % 0 % LAB HEMATOLOGY METHOD 05/24/2024 1:46 PM EDT [facility] Basophils % 0 % LAB HEMATOLOGY METHOD 05/24/2024 1:46 PM EDT [facility] Blasts Absolute 0.00 10*3/UL LAB HEMATOLOGY METHOD 05/24/2024 1:46 PM EDT [facility] Promyelocytes Absolute 0.00 10*3/uL LAB HEMATOLOGY METHOD 05/24/2024 1:46 PM EDT [facility] Myelocytes Absolute 0.70 10*3/uL LAB HEMATOLOGY METHOD 05/24/2024 1:46 PM EDT [facility] Metamyelocytes Absolute 1.41 10*3/uL LAB HEMATOLOGY METHOD 05/24/2024 1:46 PM EDT [facility] Neutrophils Absolute 28.17(H) 1.60 - 6.10 10*3/uL LAB HEMATOLOGY METHOD 05/24/2024 1:46 PM EDT [facility] Lymphocytes Absolute 2.82 1.20 - 3.90 10*3/uL LAB HEMATOLOGY METHOD 05/24/2024 1:46 PM EDT [facility] Reactive Lymphocytes Absolute 0.00 10*3/uL LAB HEMATOLOGY METHOD 05/24/2024 1:46 PM EDT [facility] Monocytes Absolute 2.11(H) 0.30 - 0.90 10*3/uL LAB HEMATOLOGY METHOD 05/24/2024 1:46 PM EDT [facility] Eosinophils Absolute 0.00 0.00 - 0.50 10*3/uL LAB HEMATOLOGY METHOD 05/24/2024 1:46 PM EDT [facility] Basophils Absolute 0.00 0.00 - 0.10 10*3/uL LAB HEMATOLOGY METHOD 05/24/2024 1:46 PM EDT [facility] Blood Venous blood specimen / Unknown Venipuncture / Unknown 05/24/2024 10:18 AM EDT 05/24/2024 10:48 AM EDT us Maite Austin MD LAB BLOOD ORDERABLES Final Resu lt [facility] [address] [place] [address] * (ABNORMAL) Basic metabolic panel (05/24/2024 10:18 AM EDT) Glucose, Plasma 182(H) 74 - 99 mg/dL 05/24/2024 11:13 AM EDT [facility] BUN, Plasma 28(H) 7 - 21 mg/dL 05/24/2024 11:13 AM EDT [facility] Creatinine, Plasma 1.18(H) 0.60 - 1.10 mg/dL 05/24/2024 11:13 AM EDT [facility] BUN/Creatinine Ratio 24 05/24/2024 11:13 AM EDT [facility] Sodium, Plasma 137 136 - 145 mmol/L 05/24/2024 11:13 AM EDT [facility] Potassium, Plasma 5.0(H) 3.6 - 4.9 mmol/L 05/24/2024 11:13 AM EDT [facility] Chloride, Plasma 106 97 - 107 mmol/L 05/24/2024 11:13 AM EDT [facility] CO2, Plasma 21(L) 22 - 29 mmol/L 05/24/2024 11:13 AM EDT [facility] Anion Gap 10 6 - 16 mmol/L 05/24/2024 11:13 AM EDT [facility] Total Calcium, Plasma 8.1(L) 8.9 - 10.2 mg/dL 05/24/2024 11:13 AM EDT [facility] eGFRcr 55.0 mL/min/1.7 3m*2 05/24/2024 11:13 AM EDT [facility] Comment:Reported eGFRcr in m L/min/1.73m2 is based the CKD-EPI 2020 equation that does not use a race coefficient. Blood Venous blood specimen / Unknown Venipuncture / Unknown 05/24/2024 10:18 AM EDT 05/24/2024 10:42 AM EDT us Maite Austin MD LAB BLOOD ORDERABLES Final Resu lt [facility] [address] [place] [address] * (ABNORMAL) Magnesium, Plasma (05/24/2024 10:18 AM EDT) Pathologist [facility] Magnesium, Plasma 2.7(H) 1.9 - 2.4 mg/dL 05/24/2024 11:13 AM EDT [facility] Blood Venous blood specimen / Unknown Venipuncture / Unknown 05/24/2024 10:18 AM EDT 05/24/2024 10:42 AM EDT Maite Austin MD LAB BLOOD ORDERABLES Final Resu lt Performing Organization Address City/[facility]/ZIP Co de Phone Number [facility] [address] [place] [address] * (ABNORMAL) CBC and Differential (05/24/2024 10:18 AM EDT) Pathologist [facility] WBC Count 35.21(H) 3.70 - 10.30 10*3/uL LAB HEMATOLOGY METHOD 05/24/2024 1:46 PM EDT [facility] RBC Count 2.93(L) 3.90 - 5.20 10*6/uL LAB HEMATOLOGY METHOD 05/24/2024 1:46 PM EDT [facility] HGB 8.7(L) 11.2 - 15.7 g/dL LAB HEMATOLOGY METHOD 05/24/2024 1:46 PM EDT [facility] HCT 26.8(L) 34.0 - 45.0 % LAB HEMATOLOGY METHOD 05/24/2024 1:46 PM EDT [facility] Platelet Count 375(H) 155 - 369 10*3/uL LAB HEMATOLOGY METHOD 05/24/2024 1:46 PM EDT [facility] MCV 92 79 - 98 fL LAB HEMATOLOGY METHOD 05/24/2024 1:46 PM EDT [facility] MCH 29.7 26.0 - 32.0 pg LAB HEMATOLOGY METHOD 05/24/2024 1:46 PM EDT [facility] MCHC 32.5 30.7 - 35.5 g/dL LAB HEMATOLOGY METHOD 05/24/2024 1:46 PM EDT [facility] RDW 15.8(H) 11.5 - 14.5 % LAB HEMATOLOGY METHOD 05/24/2024 1:46 PM EDT [facility] MPV 10.3 8.8 - 12.5 fL LAB HEMATOLOGY METHOD 05/24/2024 1:46 PM EDT [facility] nRBC 0.4(H) <=0.0 per 100 WBCs LAB HEMATOLOGY METHOD 05/24/2024 1:46 PM EDT [facility] Differential Type Manual LAB HEMATOLOGY METHOD 05/24/2024 1:46 PM EDT [facility] Blood Venous blood specimen / Unknown Venipuncture / Unknown 05/24/2024 10:18 AM EDT 05/24/2024 10:48 AM EDT Narrative [facility] - 05/24/2024 1:46 PM EDT [...] MD LAB BLOOD ORDERABLES Final Resu lt [facility] [address] [place] [address] * XR Chest 1 View (05/24/2024 8:51 [...] 05/24/2024 6:11 AM EDT [facility] C.O.D. Biller ID Bryanna Sullivan 05/25/19 6:11 AM EDT [facility] Device ID [id number] 05/24/2024 6:11 AM EDT [facility] Specimen Type POC Capillary 05/24/2024 6:11 AM EDT [facility] Blood Capillary blood specimen / Unknown 05/24/2024 6:09 AM EDT 05/24/2024 6:11 AM EDT us Maite Austin MD LAB POINT OF CARE TE ST DOCKED DEVICE UNSOLICITED RESULTS Final Result [facility] [address] [place], [place] [id number] * (ABNORMAL) Blood gas panel, arterial (05/23/2024 7:54 PM EDT) pH, Arterial 7.29(L) 7.35 - 7.45 LAB HEMATOLOGY METHOD 05/23/2024 8:04 PM EDT [facility] pCO2, Arterial 44 35 - 48 mmHg LAB HEMATOLOGY METHOD 05/23/2024 8:04 PM EDT [facility] pO2, Arterial 182(H) 83 - 108 mmHg LAB HEMATOLOGY METHOD 05/23/2024 8:04 PM EDT [facility] SO2, Measured, Arterial 100(H) 94 - 98 % LAB HEMATOLOGY METHOD 05/23/2024 8:04 PM EDT [facility] Base Excess, Arterial -5.1(L) -2.0 - 3.0 mmol/L LAB HEMATOLOGY METHOD 05/23/2024 8:04 PM EDT [facility] Bicarbonate, Calculated, Arterial 21(L) 22 - 26 mmol/L LAB HEMATOLOGY METHOD 05/23/2024 8:04 PM EDT [facility] Hematocrit, Whole Blood 34.4 34.0 - 45.0 % LAB HEMATOLOGY METHOD 05/23/2024 8:04 PM EDT [facility] Sodium, Whole Blood 133(L) 136 - 145 mmol/L LAB HEMATOLOGY METHOD 05/23/2024 8:04 PM EDT [facility] Potassium, Whole Blood 5.0(H) 3.6 - 4.9 mmol/L LAB HEMATOLOGY METHOD 05/23/2024 8:04 PM EDT [facility] Chloride, Whole Blood 107 97 - 107 mmol/L LAB HEMATOLOGY METHOD 05/23/2024 8:04 PM EDT [facility] Glucose, Whole Blood 266(H) 74 - 99 mg/dL LAB HEMATOLOGY METHOD 05/23/2024 8:04 PM EDT [facility] Ionized Calcium, Whole Blood 4.2(L) 4.6 - 5.1 mg/dL LAB HEMATOLOGY METHOD 05/23/2024 8:04 PM EDT [facility] Lactate, Arterial, Whole Blood 2.0(H) 0.5 - 1.6 mmol/L LAB HEMATOLOGY METHOD 05/23/2024 8:04 PM EDT [facility] Blood Arterial blood specimen / Unknown Arterial Puncture / Unknown 05/23/2024 7:54 PM EDT 05/23/2024 8:02 PM EDT us Maite Austin MD LAB BLOOD ORDERABLES Final Resu lt [facility] [address] [place] [address] * Morphology (05/23/2024 7:39 PM EDT) Polychromasia Moderate LAB HEMATOLOGY METHOD 05/23/2024 8:47 PM EDT [facility] Echinocytes Present LAB HEMATOLOGY METHOD 05/23/2024 8:47 PM EDT [facility] RBC Morphology Slide Reviewed LAB HEMATOLOGY METHOD 05/23/2024 8:47 PM EDT [facility] Platelet Estimate Platelet smear estimate consistent with automated count LAB HEMATOLOGY METHOD 05/23/2024 8:47 PM EDT [facility] Blood Venous blood specimen / Unknown Venipuncture / Unknown 05/23/2024 7:39 PM EDT 05/23/2024 7:45 PM EDT us Reyna Obregon APRN LAB BLOOD ORDERABLES Namrata l Result Performing Organization Address City/[facility]/ZIP Co de Phone Number [facility] [address] [place] [address] * (ABNORMAL) Manual Differential (05/23/2024 7:39 PM EDT) Blasts % 0 % LAB HEMATOLOGY METHOD 05/23/2024 8:47 PM EDT [facility] Promyelocytes % 0 % LAB HEMATOLOGY METHOD 05/23/2024 8:47 PM EDT [facility] Myelocytes % 8 % LAB HEMATOLOGY METHOD 05/23/2024 8:47 PM EDT [facility] Metamyelocytes % 4 % LAB HEMATOLOGY METHOD 05/23/2024 8:47 PM EDT [facility] Neutrophils % 76 % LAB HEMATOLOGY METHOD 05/23/2024 8:47 PM EDT [facility] Lymphocytes % 6 % LAB HEMATOLOGY METHOD 05/23/2024 8:47 PM EDT [facility] Reactive Lymphocytes % 1 % LAB HEMATOLOGY METHOD 05/23/2024 8:47 PM EDT [facility] Monocytes % 4 % LAB HEMATOLOGY METHOD 05/23/2024 8:47 PM EDT [facility] Eosinophils % 1 % LAB HEMATOLOGY METHOD 05/23/2024 8:47 PM EDT [facility] Basophils % 0 % LAB HEMATOLOGY METHOD 05/23/2024 8:47 PM EDT [facility] Blasts Absolute 0.00 10*3/UL LAB HEMATOLOGY METHOD 05/23/2024 8:47 PM EDT [facility] Promyelocytes Absolute 0.00 10*3/uL LAB HEMATOLOGY METHOD 05/23/2024 8:47 PM EDT [facility] Myelocytes Absolute 2.59 10*3/uL LAB HEMATOLOGY METHOD 05/23/2024 8:47 PM EDT [facility] Metamyelocytes Absolute 1.29 10*3/uL LAB HEMATOLOGY METHOD 05/23/2024 8:47 PM EDT [facility] Neutrophils Absolute 24.57(H) 1.60 - 6.10 10*3/uL LAB HEMATOLOGY METHOD 05/23/2024 8:47 PM EDT [facility] Lymphocytes Absolute 1.94 1.20 - 3.90 10*3/uL LAB HEMATOLOGY METHOD 05/23/2024 8:47 PM EDT [facility] Reactive Lymphocytes Absolute 0.32 10*3/uL LAB HEMATOLOGY METHOD 05/23/2024 8:47 PM EDT [facility] Monocytes Absolute 1.29(H) 0.30 - 0.90 10*3/uL LAB HEMATOLOGY METHOD 05/23/2024 8:47 PM EDT [facility] Eosinophils Absolute 0.32 0.00 - 0.50 10*3/uL LAB HEMATOLOGY METHOD 05/23/2024 8:47 PM EDT [facility] Basophils Absolute 0.00 0.00 - 0.10 10*3/uL LAB HEMATOLOGY METHOD 05/23/2024 8:47 PM EDT [facility] Blood Venous blood specimen / Unknown Venipuncture / Unknown 05/23/2024 7:39 PM EDT 05/23/2024 7:45 PM EDT us Reyna Obregon ACCOUNTS RECEIVABLE SPECIALIST LAB BLOOD ORDERABLES Namrata otto Result [facility] [address] [place] [address] * (ABNORMAL) Renal Function Panel, Plasma (05/23/2024 7:39 PM EDT) Glucose, Plasma 280(H) 74 - 99 mg/dL 05/23/2024 8:14 PM EDT [facility] BUN, Plasma 20 7 - 21 mg/dL 05/23/2024 8:14 PM EDT [facility] Creatinine, Plasma 1.06 0.60 - 1.10 mg/dL 05/23/2024 8:14 PM EDT [facility] BUN/Creatinine Ratio 19 05/23/2024 8:14 PM EDT [facility] Sodium, Plasma 137 136 - 145 mmol/L 05/23/2024 8:14 PM EDT [facility] Potassium, Plasma 5.5(H) 3.6 - 4.9 mmol/L 05/23/2024 8:14 PM EDT [facility] Chloride, Plasma 107 97 - 107 mmol/L 05/23/2024 8:14 PM EDT [facility] CO2, Plasma 20(L) 22 - 29 mmol/L 05/23/2024 8:14 PM EDT [facility] Anion Gap 10 6 - 16 mmol/L 05/23/2024 8:14 PM EDT [facility] Total Calcium, Plasma 7.5(L) 8.9 - 10.2 mg/dL 05/23/2024 8:14 PM EDT [facility] Phosphorus, Plasma 6.4(H) 2.5 - 4.5 mg/dL 05/23/2024 8:14 PM EDT [facility] Albumin, Plasma 1.7(L) 3.5 - 5.2 g/dL 05/23/2024 8:14 PM EDT [facility] eGFRcr 62.6 mL/min/1.7 3m*2 05/23/2024 8:14 PM EDT [facility] Comment:Reported eGFRcr in m L/min/1.73m2 is based the CKD-EPI 2020 equation that does not use a race coefficient. Blood Venous blood specimen / Unknown Venipuncture / Unknown 05/23/2024 7:39 PM EDT 05/23/2024 7:45 PM EDT us Maite Austin MD LAB BLOOD ORDERABLES Final Resu lt Performing Organization Address City/[facility]/ZIP Co de Phone Number [facility] [address] [place] [address] * (ABNORMAL) Magnesium (05/23/2024 7:39 PM EDT) Magnesium, Plasma 1.8(L) 1.9 - 2.4 mg/dL 05/23/2024 8:14 PM EDT [facility] Blood Venous blood specimen / Unknown Venipuncture / Unknown 05/23/2024 7:39 PM EDT 05/23/2024 7:45 PM EDT us Maite Austin MD LAB BLOOD ORDERABLES Final Resu lt [facility] [address] [place] [address] * (ABNORMAL) Comprehensive metabolic panel (05/23/2024 7:39 PM EDT) Glucose, Plasma 280(H) 74 - 99 mg/dL 05/23/2024 8:14 PM EDT [facility] BUN, Plasma 20 7 - 21 mg/dL 05/23/2024 8:14 PM EDT [facility] Creatinine, Plasma 1.06 0.60 - 1.10 mg/dL 05/23/2024 8:14 PM EDT [facility] BUN/Creatinine Ratio 19 05/23/2024 8:14 PM EDT [facility] Sodium, Plasma 137 136 - 145 mmol/L 05/23/2024 8:14 PM EDT [facility] Potassium, Plasma 5.5(H) 3.6 - 4.9 mmol/L 05/23/2024 8:14 PM EDT [facility] Chloride, Plasma 107 97 - 107 mmol/L 05/23/2024 8:14 PM EDT [facility] CO2, Plasma 20(L) 22 - 29 mmol/L 05/23/2024 8:14 PM EDT [facility] Anion Gap 10 6 - 16 mmol/L 05/23/2024 8:14 PM EDT [facility] Total Calcium, Plasma 7.5(L) 8.9 - 10.2 mg/dL 05/23/2024 8:14 PM EDT [facility] Total Protein 5.4(L) 6.3 - 7.9 g/dL 05/23/2024 8:14 PM EDT [facility] Albumin, Plasma 1.7(L) 3.5 - 5.2 g/dL 05/23/2024 8:14 PM EDT [facility] AST, Plasma 26 10 - 35 U/L 05/23/2024 8:14 PM EDT [facility] ALT, Plasma 14 10 - 35 U/L 05/23/2024 8:14 PM EDT [facility] Alkaline Phosphatase, Plasma 97 35 - 104 U/L 05/23/2024 8:14 PM EDT [facility] Total Bilirubin, Plasma 0.9 0.2 - 1.1 mg/dL 05/23/2024 8:14 PM EDT [facility] eGFRcr 62.6 mL/min/1.7 3m*2 05/23/2024 8:14 PM EDT [facility] Comment:Reported eGFRcr in m L/min/1.73m2 is based the CKD-EPI 2020 equation that does not use a race coefficient. Blood Venous blood specimen / Unknown Venipuncture / Unknown 05/23/2024 7:39 PM EDT 05/23/2024 7:45 PM EDT us Reyna Obregon ACCOUNTS RECEIVABLE SPECIALIST LAB BLOOD ORDERABLES Namrata l Result [facility] [address] [place] [address] * (ABNORMAL) CBC and Differential (05/23/2024 7:39 PM EDT) WBC Count 32.33(H) 3.70 - 10.30 10*3/uL LAB HEMATOLOGY METHOD 05/23/2024 8:47 PM EDT [facility] RBC Count 3.73(L) 3.90 - 5.20 10*6/uL LAB HEMATOLOGY METHOD 05/23/2024 8:47 PM EDT [facility] HGB 11.1(L) 11.2 - 15.7 g/dL LAB HEMATOLOGY METHOD 05/23/2024 8:47 PM EDT [facility] HCT 34.2 34.0 - 45.0 % LAB HEMATOLOGY METHOD 05/23/2024 8:47 PM EDT [facility] Platelet Count 497(H) 155 - 369 10*3/uL LAB HEMATOLOGY METHOD 05/23/2024 8:47 PM EDT [facility] MCV 92 79 - 98 fL LAB HEMATOLOGY METHOD 05/23/2024 8:47 PM EDT [facility] MCH 29.8 26.0 - 32.0 pg LAB HEMATOLOGY METHOD 05/23/2024 8:47 PM EDT [facility] MCHC 32.5 30.7 - 35.5 g/dL LAB HEMATOLOGY METHOD 05/23/2024 8:47 PM EDT [facility] RDW 14.8(H) 11.5 - 14.5 % LAB HEMATOLOGY METHOD 05/23/2024 8:47 PM EDT [facility] MPV 10.1 8.8 - 12.5 fL LAB HEMATOLOGY METHOD 05/23/2024 8:47 PM EDT [facility] nRBC 0.5(H) <=0.0 per 100 WBCs LAB HEMATOLOGY METHOD 05/23/2024 8:47 PM EDT [facility] Differential Type Manual LAB HEMATOLOGY METHOD 05/23/2024 8:47 PM EDT [facility] Blood Venous blood specimen / Unknown Venipuncture / Unknown 05/23/2024 7:39 PM EDT 05/23/2024 7:45 PM EDT Narrative [facility] - 05/23/2024 8:47 PM EDT [...] is no longer being reported. Reyna Obregon ACCOUNTS RECEIVABLE SPECIALIST LAB BLOOD ORDERABLES Namrata clarita Result [facility] [address] [place] [address] * Transfuse RBC (05/23/2024 4:18 PM EDT) Mayda Bhatti [employer] BLOOD TRANSFUSION ORDERABL ES Edited Result - Final * Transfuse RBC: 1 Units (05/23/2024 4:18 PM EDT) Mayda Bhatti [employer] BLOOD TRANSFUSION ORDERABL ES Edited Result - Final * Surgical Pathology Exam (05/23/2024 4:09 PM EDT) Case Report Surgical Pathology Case: [id number] Authorizing Provider: Lidia Troncoso MD Collected: 05/23/2024 1609 Ordering Location: [facility] Received: 05/24/2024 0749 Pathologist: Elvia Morgan MD Specimen: Other (specify site), Left Colon (fresh for permanent) 05/28/2024 11:11 AM T [facility] Final Diagnosis LARGE INTESTINE. 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 - INVOLVEMENT OF ONE RESECTION MARGIN. 05/28/2024 11:11 AM T [facility] at 1111 EDT Clinical Information Colon perforation (CMS/HCC) [K63.1] s/p 4vCABG on 05/06/24. 05/28/2024 11:11 AM T [facility] Gross Description A. LEFT COLON (FRESH FOR PERMANENT) The specimens received fresh, placed in formalin labeled [facility] colon and consists of a 33 cm (length) by 3.8 cm (diameter) segment of colon. The external surface is guzamn-brown to guzman-red, slightly hemorrhagic, fibrotic with attached [...] x 7.8 cm unremarkable mesentery is submitted. Chalk Cutter sections are submitted as follows: A1: Resection margin A2: Opposite resection margin A3-A4: Area of defect, full-thickness A5: Area of fibrosis and stricturing A6: Area of fibrosis and stricturing A7: Area of fibrosis and stricturing A8: Uninvolved colonic mucosa A9: Junction between involved in uninvolved mucosa A10: Two lymph node candidates, entirely submitted Cold Time: 2h 41m 05/28/2024 11:11 AM EDT [facility] Note: A resident was involved in the service. I attest I examined the relevant preparations for the specimens and confirmed the diagnosis or interpretation. 05/28/2024 11:11 AM EDT [facility] Tissue Topography unknown / Unknown 05/23/2024 4:09 PM EDT 05/24/2024 7:49 AM EDT Comment:Pre-op diagnosis: Colon perforation (CMS/HCC) [K63.1] us Lidia Troncoso MD LAB PATHOLOGY ORDERABLES Final Result [facility] [address] [place] [address] * (ABNORMAL) Blood gas, arterial (05/23/2024 2:14 PM EDT) pH, Arterial 7.44 7.35 - 7.45 LAB HEMATOLOGY METHOD 05/23/2024 2:35 PM EDT [facility] pCO2, Arterial 39 35 - 48 mmHg LAB HEMATOLOGY METHOD 05/23/2024 2:35 PM EDT [facility] pO2, Arterial 248(H) 83 - 108 mmHg LAB HEMATOLOGY METHOD 05/23/2024 2:35 PM EDT [facility] SO2, Measured, Arterial 99(H) 94 - 98 % LAB HEMATOLOGY METHOD 05/23/2024 2:35 PM EDT [facility] Base Excess, Arterial 1.8 -2.0 - 3.0 mmol/L LAB HEMATOLOGY METHOD 05/23/2024 2:35 PM EDT [facility] Bicarbonate, Calculated, Arterial 26 22 - 26 mmol/L LAB HEMATOLOGY METHOD 05/23/2024 2:35 PM EDT [facility] Hematocrit, Whole Blood 26.3(L) 34.0 - 45.0 % LAB HEMATOLOGY METHOD 05/23/2024 2:35 PM EDT [facility] Sodium, Whole Blood 137 136 - 145 mmol/L LAB HEMATOLOGY METHOD 05/23/2024 2:35 PM EDT [facility] Potassium, Whole Blood 3.9 3.6 - 4.9 mmol/L LAB HEMATOLOGY METHOD 05/23/2024 2:35 PM EDT [facility] Chloride, Whole Blood 104 97 - 107 mmol/L LAB HEMATOLOGY METHOD 05/23/2024 2:35 PM EDT [facility] Glucose, Whole Blood 134(H) 74 - 99 mg/dL LAB HEMATOLOGY METHOD 05/23/2024 2:35 PM EDT [facility] Ionized Calcium, Whole Blood 4.4(L) 4.6 - 5.1 mg/dL LAB HEMATOLOGY METHOD 05/23/2024 2:35 PM EDT [facility] Lactate, Arterial, Whole Blood 1.2 0.5 - 1.6 mmol/L LAB HEMATOLOGY METHOD 05/23/2024 2:35 PM EDT [facility] Blood Arterial blood specimen / Unknown Arterial Puncture / Unknown 05/23/2024 2:14 PM EDT 05/23/2024 2:34 PM EDT Mayda Bhatti [employer] LAB BLOOD ORDERABLES Final Result Performing Organization Address City/[facility]/ZIP Co de Phone Number [facility] [address] [place] [address] * Prepare Leukocyte Reduced RBC: 2 Units (05/23/2024 2:04 PM EDT) Product Code [id number] BLOO D BANK Dispense Status Transfused BLOOD BANK Blood Expiration Date [id number] BLOOD BANK Unit Number [id number] CH B LOOD BANK Product Blood Type 7300 BLOOD BANK Blood Type B+ BLOOD BANK Crossmatch Compatible BLOOD BANK Product Code [id number] BLOO D BANK Dispense Status Returned BLOOD BANK Blood Expiration Date [id number] BLOOD BANK Unit Number [id number] CH B LOOD BANK Product Blood Type 7300 BLOOD BANK Blood Type B+ BLOOD BANK Crossmatch Compatible BLOOD BANK Other Mayda Bhatti [employer] BLOOD BANK PRODUCT ORDERAB LES Final Result Performing Organization Address City/[facility]/ZIP Co de Phone Number BLOOD BANK [address] [place] [address], * (ABNORMAL) Renal Function Panel, Plasma (05/23/2024 1:00 PM EDT) Glucose, Plasma 136(H) 74 - 99 mg/dL 05/23/2024 2:16 PM EDT [facility] BUN, Plasma 13 7 - 21 mg/dL 05/23/2024 2:16 PM EDT [facility] Creatinine, Plasma 0.68 0.60 - 1.10 mg/dL 05/23/2024 2:16 PM EDT [facility] BUN/Creatinine Ratio 19 05/23/2024 2:16 PM EDT [facility] Sodium, Plasma 137 136 - 145 mmol/L 05/23/2024 2:16 PM EDT [facility] Potassium, Plasma 4.2 3.6 - 4.9 mmol/L 05/23/2024 2:16 PM EDT [facility] Chloride, Plasma 104 97 - 107 mmol/L 05/23/2024 2:16 PM EDT [facility] CO2, Plasma 25 22 - 29 mmol/L 05/23/2024 2:16 PM EDT [facility] Anion Gap 8 6 - 16 mmol/L 05/23/2024 2:16 PM EDT [facility] Total Calcium, Plasma 7.7(L) 8.9 - 10.2 mg/dL 05/23/2024 2:16 PM EDT [facility] Phosphorus, Plasma 4.1 2.5 - 4.5 mg/dL 05/23/2024 2:16 PM EDT [facility] Albumin, Plasma 2.1(L) 3.5 - 5.2 g/dL 05/23/2024 2:16 PM EDT [facility] eGFRcr 103.6 mL/min/1.7 3m*2 05/23/2024 2:16 PM EDT [facility] Comment:Reported eGFRcr in m L/min/1.73m2 is based the CKD-EPI 2020 equation that does not use a race coefficient. Blood Venous blood specimen / Unknown Venipuncture / Unknown 05/23/2024 1:00 PM EDT 05/23/2024 1:04 PM EDT Reyna Obregon ACCOUNTS RECEIVABLE SPECIALIST LAB BLOOD ORDERABLES Namrata l Result Performing Organization Address City/[facility]/[place] [address] * Magnesium (05/23/2024 1:00 PM EDT) Magnesium, Plasma 2.1 1.9 - 2.4 mg/dL 05/23/2024 2:16 PM EDT [facility] Blood Venous blood specimen / Unknown Venipuncture / Unknown 05/23/2024 1:00 PM EDT 05/23/2024 1:04 PM EDT Reyna Obregon ACCOUNTS RECEIVABLE SPECIALIST LAB BLOOD ORDERABLES Namrata l Result Performing Organization Address [facility] [place] [address] * Protime-INR (05/23/2024 12:41 PM EDT) Prothrombin Time 13.6 12.0 - 14.3 sec LAB COAGULATION METHOD 05/23/2024 1:34 PM EDT [facility] INR 1.0 0.9 - 1.1 LAB COAGULATION METHOD 05/23/2024 1:34 PM EDT [facility] Blood Venous blood specimen / Unknown Venipuncture / Unknown 05/23/2024 12:41 PM EDT 05/23/2024 1:04 PM EDT Narrative [facility] - 05/23/2024 1:34 PM EDT OPTIMAL INR RANGES FOR PATIENT ON ORAL ANTICOAGULANT THERAPY Prevention of venous thromboembolism INR 2.0 to 3.0 In patients with heart disease: Atrial fibrillation INR 2.0 to 3.0 Valvular heart disease INR 2.0 to 3.0 Tissue heart valves INR 2.0 to 3.0 Mechanical prosthetic valves INR 2.5 to 3.5 Prevention of recurrent NM INR 2.5 to 3.5 Maite Austin MD LAB BLOOD ORDERABLES Final Resu lt Performing Organization Address City/[facility]/ZIP Co de Phone Number [facility] [address] [place] [address] * (ABNORMAL) Ionized calcium, whole blood (05/23/2024 11:40 AM EDT) Pathologist [facility] Ionized Calcium, Whole Blood 4.3(L) 4.6 - 5.1 mg/dL LAB HEMATOLOGY METHOD 05/23/2024 11:48 AM EDT [facility] Blood Venous blood specimen / Unknown Venipuncture / Unknown 05/23/2024 11:40 AM EDT 05/23/2024 11:47 AM EDT Reyna Obregon ACCOUNTS RECEIVABLE SPECIALIST LAB BLOOD ORDERABLES Namrata l Result [facility] [address] [place] [address] * Blood Culture (Aerobic/Anaerobet Set) (05/23/2024 10:20 AM EDT) [facility] Culture No growth at day 5 ELI 05/28/2024 11:01 AM EDT [facility] Blood Venous blood specimen / Unknown Venipuncture / Unknown 05/23/2024 10:20 AM EDT 05/23/2024 10:28 AM EDT us Maite Austin MD [facility] Final Result [facility] [address] [place] [address] * (ABNORMAL) Hemoglobin and hematocrit, blood (05/23/2024 6:20 AM EDT) Pathologist [facility] HGB 9.0(L) 11.2 - 15.7 g/dL LAB HEMATOLOGY METHOD 05/23/2024 6:38 AM EDT [facility] HCT 28.7(L) 34.0 - 45.0 % LAB HEMATOLOGY METHOD 05/23/2024 6:38 AM EDT [facility] Blood Venous blood specimen / Unknown Venipuncture / Unknown 05/23/2024 6:20 AM EDT 05/23/2024 6:31 AM EDT us Maite Austin MD LAB BLOOD ORDERABLES Final Resu lt Performing Organization Address [facility]/ZIP Co de Phone Number [facility] [address] [place] [address] * (ABNORMAL) Hemoglobin and Hematocrit, Blood (05/23/2024 5:40 AM EDT) HGB 6.7(L) 11.2 - 15.7 g/dL LAB HEMATOLOGY METHOD 05/23/2024 6:02 AM EDT [facility] HCT 21.8(L) 34.0 - 45.0 % LAB HEMATOLOGY METHOD 05/23/2024 6:02 AM EDT [facility] Blood Venous blood specimen / Unknown Venipuncture / Unknown 05/23/2024 5:40 AM EDT 05/23/2024 5:52 AM EDT us Maite Austin MD LAB BLOOD ORDERABLES Final Resu lt Performing Organization Address [facility] de Phone Number [facility] [address] [place] [address] * (ABNORMAL) Renal Function Panel, Plasma (05/23/2024 5:40 AM EDT) Glucose, Plasma 117(H) 74 - 99 mg/dL 05/23/2024 6:22 AM EDT [facility] BUN, Plasma 12 7 - 21 mg/dL 05/23/2024 6:22 AM EDT [facility] Creatinine, Plasma 0.69 0.60 - 1.10 mg/dL 05/23/2024 6:22 AM EDT [facility] BUN/Creatinine Ratio 17 05/23/2024 6:22 AM EDT [facility] Sodium, Plasma 136 136 - 145 mmol/L 05/23/2024 6:22 AM EDT [facility] Potassium, Plasma 4.2 3.6 - 4.9 mmol/L 05/23/2024 6:22 AM EDT [facility] Chloride, Plasma 104 97 - 107 mmol/L 05/23/2024 6:22 AM EDT [facility] CO2, Plasma 24 22 - 29 mmol/L 05/23/2024 6:22 AM EDT [facility] Anion Gap 8 6 - 16 mmol/L 05/23/2024 6:22 AM EDT [facility] Total Calcium, Plasma 7.7(L) 8.9 - 10.2 mg/dL 05/23/2024 6:22 AM EDT [facility] Phosphorus, Plasma 3.9 2.5 - 4.5 mg/dL 05/23/2024 6:22 AM EDT [facility] Albumin, Plasma 1.8(L) 3.5 - 5.2 g/dL 05/23/2024 6:22 AM EDT [facility] eGFRcr 103.3 mL/min/1.7 3m*2 05/23/2024 6:22 AM EDT [facility] Comment:Reported eGFRcr in m L/min/1.73m2 is based the CKD-EPI 2020 equation that does not use a race coefficient. Blood Venous blood specimen / Unknown Venipuncture / Unknown 05/23/2024 5:40 AM EDT 05/23/2024 5:52 AM EDT Reyna Obregon ACCOUNTS RECEIVABLE SPECIALIST LAB BLOOD ORDERABLES Namrata l Result Performing Organization Address City/[facility]/ZIP Co de Phone Number [facility] [address] [place] [address] * Magnesium (05/23/2024 5:40 AM EDT) Magnesium, Plasma 2.0 1.9 - 2.4 mg/dL 05/23/2024 6:22 AM EDT [facility] Blood Venous blood specimen / Unknown Venipuncture / Unknown 05/23/2024 5:40 AM EDT 05/23/2024 5:52 AM EDT Reyna A Sabas ACCOUNTS RECEIVABLE SPECIALIST LAB BLOOD ORDERABLES Namrata l Result [facility] [address] [place] [address] * (ABNORMAL) Ionized calcium, whole blood (05/23/2024 5:40 AM EDT) Ionized Calcium, Whole Blood 4.3(L) 4.6 - 5.1 mg/dL LAB HEMATOLOGY METHOD 05/23/2024 5:55 AM EDT [facility] Blood Venous blood specimen / Unknown Venipuncture / Unknown 05/23/2024 5:40 AM EDT 05/23/2024 5:52 AM EDT us Reyna Obregon ACCOUNTS RECEIVABLE SPECIALIST LAB BLOOD ORDERABLES Namrata l Result [facility] [address] [place] [address] * XR Chest 1 View (05/23/2024 2:32 [...] DO on 05/23/2024 9:53 AM Reyna Obregon ACCOUNTS RECEIVABLE SPECIALIST IMG CT PROCEDURES Final R esult * (ABNORMAL) Morphology (05/23/2024 1:15 AM EDT) RBC Fragments/Schist ocytes Slight(A) (none) LAB HEMATOLOGY METHOD 05/23/2024 2:53 AM EDT [facility] Polychromasia Moderate LAB HEMATOLOGY METHOD 05/23/2024 2:53 AM EDT [facility] RBC Morphology Slide Reviewed LAB HEMATOLOGY METHOD 05/23/2024 2:53 AM EDT [facility] Platelet Estimate Platelet smear estimate consistent with automated count LAB HEMATOLOGY METHOD 05/23/2024 2:53 AM EDT [facility] Clumped Platelets Present LAB HEMATOLOGY METHOD 05/23/2024 2:53 AM EDT [facility] Blood Venous blood specimen / Unknown Venipuncture / Unknown 05/23/2024 1:15 AM EDT 05/23/2024 1:23 AM EDT us Reyna Obregon ACCOUNTS RECEIVABLE SPECIALIST LAB BLOOD ORDERABLES Namrata l Result [facility] [address] [place] [address] * (ABNORMAL) Manual Differential (05/23/2024 1:15 AM EDT) Blasts % 0 % LAB HEMATOLOGY METHOD 05/23/2024 2:53 AM EDT [facility] Promyelocytes % 0 % LAB HEMATOLOGY METHOD 05/23/2024 2:53 AM EDT [facility] Myelocytes % 4 % LAB HEMATOLOGY METHOD 05/23/2024 2:53 AM EDT [facility] Metamyelocytes % 3 % LAB HEMATOLOGY METHOD 05/23/2024 2:53 AM EDT [facility] Neutrophils % 56 % LAB HEMATOLOGY METHOD 05/23/2024 2:53 AM EDT [facility] Lymphocytes % 26 % LAB HEMATOLOGY METHOD 05/23/2024 2:53 AM EDT [facility] Reactive Lymphocytes % 0 % LAB HEMATOLOGY METHOD 05/23/2024 2:53 AM EDT [facility] Monocytes % 7 % LAB HEMATOLOGY METHOD 05/23/2024 2:53 AM EDT [facility] Eosinophils % 3 % LAB HEMATOLOGY METHOD 05/23/2024 2:53 AM EDT [facility] Basophils % 1 % LAB HEMATOLOGY METHOD 05/23/2024 2:53 AM EDT [facility] Blasts Absolute 0.00 10*3/UL LAB HEMATOLOGY METHOD 05/23/2024 2:53 AM EDT [facility] Promyelocytes Absolute 0.00 10*3/uL LAB HEMATOLOGY METHOD 05/23/2024 2:53 AM EDT [facility] Myelocytes Absolute 0.77 10*3/uL LAB HEMATOLOGY METHOD 05/23/2024 2:53 AM EDT [facility] Metamyelocytes Absolute 0.57 10*3/uL LAB HEMATOLOGY METHOD 05/23/2024 2:53 AM EDT [facility] Neutrophils Absolute 10.72(H) 1.60 - 6.10 10*3/uL LAB HEMATOLOGY METHOD 05/23/2024 2:53 AM EDT [facility] Lymphocytes Absolute 4.98(H) 1.20 - 3.90 10*3/uL LAB HEMATOLOGY METHOD 05/23/2024 2:53 AM EDT [facility] Reactive Lymphocytes Absolute 0.00 10*3/uL LAB HEMATOLOGY METHOD 05/23/2024 2:53 AM EDT [facility] Monocytes Absolute 1.34(H) 0.30 - 0.90 10*3/uL LAB HEMATOLOGY METHOD 05/23/2024 2:53 AM EDT [facility] Eosinophils Absolute 0.57(H) 0.00 - 0.50 10*3/uL LAB HEMATOLOGY METHOD 05/23/2024 2:53 AM EDT [facility] Basophils Absolute 0.19(H) 0.00 - 0.10 10*3/uL LAB HEMATOLOGY METHOD 05/23/2024 2:53 AM EDT [facility] Blood Venous blood specimen / Unknown Venipuncture / Unknown 05/23/2024 1:15 AM EDT 05/23/2024 1:23 AM EDT us Reyna Obregon [employer] RECEIVABLE SPECIALIST LAB BLOOD ORDERABLES [place] l Result [facility] [address] [place] [address] * (ABNORMAL) Renal Function Panel, Plasma (05/23/2024 1:15 AM EDT) Glucose, Plasma 110(H) 74 - 99 mg/dL 05/23/2024 1:51 AM EDT [facility] BUN, Plasma 13 7 - 21 mg/dL 05/23/2024 1:51 AM EDT [facility] Creatinine, Plasma 0.67 0.60 - 1.10 mg/dL 05/23/2024 1:51 AM EDT [facility] BUN/Creatinine Ratio 19 05/23/2024 1:51 AM EDT [facility] Sodium, Plasma 136 136 - 145 mmol/L 05/23/2024 1:51 AM EDT [facility] Potassium, Plasma 4.0 3.6 - 4.9 mmol/L 05/23/2024 1:51 AM EDT [facility] Chloride, Plasma 103 97 - 107 mmol/L 05/23/2024 1:51 AM EDT [facility] CO2, Plasma 25 22 - 29 mmol/L 05/23/2024 1:51 AM EDT [facility] Anion Gap 8 6 - 16 mmol/L 05/23/2024 1:51 AM EDT [facility] Total Calcium, Plasma 7.9(L) 8.9 - 10.2 mg/dL 05/23/2024 1:51 AM EDT [facility] Phosphorus, Plasma 3.4 2.5 - 4.5 mg/dL 05/23/2024 1:51 AM EDT [facility] Albumin, Plasma 2.1(L) 3.5 - 5.2 g/dL 05/23/2024 1:51 AM EDT [facility] eGFRcr 104.0 mL/min/1.7 3m*2 05/23/2024 1:51 AM EDT [facility] Comment:Reported eGFRcr in m L/min/1.73m2 is based the CKD-EPI 2020 equation that does not use a race coefficient. Blood Venous blood specimen / Unknown Venipuncture / Unknown 05/23/2024 1:15 AM EDT 05/23/2024 1:24 AM EDT us Reyna Obregon ACCOUNTS RECEIVABLE SPECIALIST LAB BLOOD ORDERABLES Namrata l Result [facility] [address] [place] [address] * Magnesium (05/23/2024 1:15 AM EDT) Magnesium, Plasma 1.9 1.9 - 2.4 mg/dL 05/23/2024 1:51 AM EDT [facility] Blood Venous blood specimen / Unknown Venipuncture / Unknown 05/23/2024 1:15 AM EDT 05/23/2024 1:24 AM EDT Reynaher Lois Andradeari ACCOUNTS RECEIVABLE SPECIALIST LAB BLOOD ORDERABLES Namrata l Result Performing Organization Address City/[facility]/ZIP Co de Phone Number [facility] [address] [place] [address] * (ABNORMAL) Ionized calcium, whole blood (05/23/2024 1:15 AM EDT) Ionized Calcium, Whole Blood 4.2(L) 4.6 - 5.1 mg/dL LAB HEMATOLOGY METHOD 05/23/2024 1:43 AM EDT [facility] Blood Venous blood specimen / Unknown Venipuncture / Unknown 05/23/2024 1:15 AM EDT 05/23/2024 1:38 AM EDT Reyna Obregon APRN LAB BLOOD ORDERABLES Namrata l Result Performing Organization Address [facility] Co de Phone Number [facility] [address] [place] [address] * (ABNORMAL) Comprehensive metabolic panel (05/23/2024 1:15 AM EDT) Glucose, Plasma 110(H) 74 - 99 mg/dL 05/23/2024 1:51 AM EDT [facility] BUN, Plasma 13 7 - 21 mg/dL 05/23/2024 1:51 AM EDT [facility] Creatinine, Plasma 0.67 0.60 - 1.10 mg/dL 05/23/2024 1:51 AM EDT [facility] BUN/Creatinine Ratio 19 05/23/2024 1:51 AM EDT [facility] Sodium, Plasma 136 136 - 145 mmol/L 05/23/2024 1:51 AM EDT [facility] Potassium, Plasma 4.0 3.6 - 4.9 mmol/L 05/23/2024 1:51 AM EDT [facility] Chloride, Plasma 103 97 - 107 mmol/L 05/23/2024 1:51 AM EDT [facility] CO2, Plasma 25 22 - 29 mmol/L 05/23/2024 1:51 AM EDT [facility] Anion Gap 8 6 - 16 mmol/L 05/23/2024 1:51 AM EDT [facility] Total Calcium, Plasma 7.9(L) 8.9 - 10.2 mg/dL 05/23/2024 1:51 AM EDT [facility] Total Protein 6.4 6.3 - 7.9 g/dL 05/23/2024 1:51 AM EDT [facility] Albumin, Plasma 2.1(L) 3.5 - 5.2 g/dL 05/23/2024 1:51 AM EDT [facility] AST, Plasma 29 10 - 35 U/L 05/23/2024 1:51 AM EDT [facility] ALT, Plasma 14 10 - 35 U/L 05/23/2024 1:51 AM EDT [facility] Alkaline Phosphatase, Plasma 121(H) 35 - 104 U/L 05/23/2024 1:51 AM EDT [facility] Total Bilirubin, Plasma 0.6 0.2 - 1.1 mg/dL 05/23/2024 1:51 AM EDT [facility] eGFRcr 104.0 mL/min/1.7 3m*2 05/23/2024 1:51 AM EDT [facility] Comment:Reported eGFRcr in m L/min/1.73m2 is based the CKD-EPI 2020 equation that does not use a race coefficient. Blood Venous blood specimen / Unknown Venipuncture / Unknown 05/23/2024 1:15 AM EDT 05/23/2024 1:24 AM EDT us Reyna Obregon APRN LAB BLOOD ORDERABLES Namrata clarita Result [facility] [address] [place] [address] * (ABNORMAL) CBC and Differential (05/23/2024 1:15 AM EDT) WBC Count 19.15(H) 3.70 - 10.30 10*3/uL LAB HEMATOLOGY METHOD 05/23/2024 2:54 AM EDT [facility] RBC Count 3.31(L) 3.90 - 5.20 10*6/uL LAB HEMATOLOGY METHOD 05/23/2024 2:54 AM EDT [facility] HGB 9.5(L) 11.2 - 15.7 g/dL LAB HEMATOLOGY METHOD 05/23/2024 2:54 AM EDT [facility] HCT 30.4(L) 34.0 - 45.0 % LAB HEMATOLOGY METHOD 05/23/2024 2:54 AM EDT [facility] Platelet Count 558(H) 155 - 369 10*3/uL LAB HEMATOLOGY METHOD 05/23/2024 2:54 AM EDT [facility] MCV 92 79 - 98 fL LAB HEMATOLOGY METHOD 05/23/2024 2:54 AM EDT [facility] MCH 28.7 26.0 - 32.0 pg LAB HEMATOLOGY METHOD 05/23/2024 2:54 AM EDT [facility] MCHC 31.3 30.7 - 35.5 g/dL LAB HEMATOLOGY METHOD 05/23/2024 2:54 AM EDT [facility] RDW 15.3(H) 11.5 - 14.5 % LAB HEMATOLOGY METHOD 05/23/2024 2:54 AM EDT [facility] MPV 9.8 8.8 - 12.5 fL LAB HEMATOLOGY METHOD 05/23/2024 2:54 AM EDT [facility] nRBC 0.6(H) <=0.0 per 100 WBCs LAB HEMATOLOGY METHOD 05/23/2024 2:54 AM EDT [facility] Differential Type Manual LAB HEMATOLOGY METHOD 05/23/2024 2:54 AM EDT [facility] Blood Venous blood specimen / Unknown Venipuncture / Unknown 05/23/2024 1:15 AM EDT 05/23/2024 1:23 AM EDT Narrative [facility] - 05/23/2024 2:54 AM EDT [...] is no longer being reported. Reyna Obregon ACCOUNTS RECEIVABLE SPECIALIST LAB BLOOD ORDERABLES Namrata l Result [facility] [address] [place] [address] * ECG Adult (05/23/2024 12:57 AM EDT) EKG DIAGNOSIS CLASS Abnormal MUSE ECG Ventricular Rate 108 BPM MUSE ECG Atrial Rate 108 BPM MUSE ECG WI Interval 118 ms MUSE ECG QRSD Interval 96 ms MUSE ECG QT Interval 380 ms MUSE ECG QTC Interval 509 ms MUSE ECG P Procious 83 degrees MUSE ECG R Procious 81 degrees MUSE ECG T Wave Procious 78 degrees MUSE ECG Diagnosis Sinus tachycardia MUSE ECG Diagnosis Low voltage chest leads MUSE ECG Diagnosis Incomplete right bundle branch block MUSE ECG Diagnosis ST & T wave abnormality, consider anterior ischemia MUSE ECG Diagnosis Abnormal ECG MUSE ECG Diagnosis MUSE ECG Diagnosis Confirmed by Graham Singleton ([id number]) on 05/23/2024 7:56:02 AM MUSE ECG 05/23/2024 12:5 7 AM EDT 05/23/2024 7:56 AM EDT Maite Austin MD ECG ORDERABLES Final Result MUSE ECG * (ABNORMAL) Renal Function Panel, Plasma (05/22/2024 6:50 PM EDT) Glucose, Plasma 126(H) 74 - 99 mg/dL 05/22/2024 7:40 PM EDT [facility] BUN, Plasma 13 7 - 21 mg/dL 05/22/2024 7:40 PM EDT [facility] Creatinine, Plasma 0.66 0.60 - 1.10 mg/dL 05/22/2024 7:40 PM EDT [facility] BUN/Creatinine Ratio 20 05/22/2024 7:40 PM EDT [facility] Sodium, Plasma 136 136 - 145 mmol/L 05/22/2024 7:40 PM EDT [facility] Potassium, Plasma 3.7 3.6 - 4.9 mmol/L 05/22/2024 7:40 PM EDT [facility] Chloride, Plasma 102 97 - 107 mmol/L 05/22/2024 7:40 PM EDT [facility] CO2, Plasma 26 22 - 29 mmol/L 05/22/2024 7:40 PM EDT [facility] Anion Gap 8 6 - 16 mmol/L 05/22/2024 7:40 PM EDT [facility] Total Calcium, Plasma 7.7(L) 8.9 - 10.2 mg/dL 05/22/2024 7:40 PM EDT [facility] Phosphorus, Plasma 3.6 2.5 - 4.5 mg/dL 05/22/2024 7:40 PM EDT [facility] Albumin, Plasma 2.0(L) 3.5 - 5.2 g/dL 05/22/2024 7:40 PM EDT [facility] eGFRcr 104.4 mL/min/1.7 3m*2 05/22/2024 7:40 PM EDT [facility] Comment:Reported eGFRcr in m L/min/1.73m2 is based the CKD-EPI 2020 equation that does not use a race coefficient. Blood Venous blood specimen / Unknown Venipuncture / Unknown 05/22/2024 6:50 PM EDT 05/22/2024 7:08 PM EDT us Reyna Obregon ACCOUNTS RECEIVABLE SPECIALIST LAB BLOOD ORDERABLES Namrata clarita Result [facility] [address] [place] [address] * Magnesium (05/22/2024 6:50 PM EDT) Magnesium, Plasma 2.0 1.9 - 2.4 mg/dL 05/22/2024 7:40 PM EDT [facility] Blood Venous blood specimen / Unknown Venipuncture / Unknown 05/22/2024 6:50 PM EDT 05/22/2024 7:08 PM EDT Reyna A Sabas ACCOUNTS RECEIVABLE SPECIALIST LAB BLOOD ORDERABLES Namrata l Result Performing Organization Address [facility] Co de Phone Number [facility] [address] [place] [address] * (ABNORMAL) Ionized calcium, whole blood (05/22/2024 6:50 PM EDT) Pathologist [facility] Ionized Calcium, Whole Blood 4.2(L) 4.6 - 5.1 mg/dL LAB HEMATOLOGY METHOD 05/22/2024 7:10 PM EDT [facility] Blood Venous blood specimen / Unknown Venipuncture / Unknown 05/22/2024 6:50 PM EDT 05/22/2024 7:06 PM EDT Reyna A Sabas ACCOUNTS RECEIVABLE SPECIALIST LAB BLOOD ORDERABLES Namrata l Result Performing Organization Address [facility] [place] [address] * CT Abdomen Pelvis wo IV Contrast [...] MD on 05/22/2024 6:08 PM Reyna Andradeari ACCOUNTS RECEIVABLE SPECIALIST IMG CT PROCEDURES Final R esult * (ABNORMAL) Renal Function Panel, Plasma (05/22/2024 11:32 AM EDT) Glucose, Plasma 143(H) 74 - 99 mg/dL 05/22/2024 12:15 PM EDT [facility] BUN, Plasma 13 7 - 21 mg/dL 05/22/2024 12:15 PM EDT [facility] Creatinine, Plasma 0.62 0.60 - 1.10 mg/dL 05/22/2024 12:15 PM EDT [facility] BUN/Creatinine Ratio 21 05/22/2024 12:15 PM EDT [facility] Sodium, Plasma 138 136 - 145 mmol/L 05/22/2024 12:15 PM EDT [facility] Potassium, Plasma 3.9 3.6 - 4.9 mmol/L 05/22/2024 12:15 PM EDT [facility] Chloride, Plasma 104 97 - 107 mmol/L 05/22/2024 12:15 PM EDT [facility] CO2, Plasma 25 22 - 29 mmol/L 05/22/2024 12:15 PM EDT [facility] Anion Gap 9 6 - 16 mmol/L 05/22/2024 12:15 PM EDT [facility] Total Calcium, Plasma 7.9(L) 8.9 - 10.2 mg/dL 05/22/2024 12:15 PM EDT [facility] Phosphorus, Plasma 3.5 2.5 - 4.5 mg/dL 05/22/2024 12:15 PM EDT [facility] Albumin, Plasma 2.1(L) 3.5 - 5.2 g/dL 05/22/2024 12:15 PM EDT [facility] eGFRcr 106.0 mL/min/1.7 3m*2 05/22/2024 12:15 PM EDT [facility] Comment:Reported eGFRcr in m L/min/1.73m2 is based the CKD-EPI 2020 equation that does not use a race coefficient. Blood Venous blood specimen / Unknown Venipuncture / Unknown 05/22/2024 11:32 AM EDT 05/22/2024 11:43 AM EDT us Maite Austin MD LAB BLOOD ORDERABLES Final Resu lt Performing Organization Address City/[facility]/ZIP Co de Phone Number [facility] [address] [place] [address] * Magnesium (05/22/2024 11:32 AM EDT) Magnesium, Plasma 2.0 1.9 - 2.4 mg/dL 05/22/2024 12:15 PM EDT [facility] Blood Venous blood specimen / Unknown Venipuncture / Unknown 05/22/2024 11:32 AM EDT 05/22/2024 11:43 AM EDT us Maite Austin MD LAB BLOOD ORDERABLES Final Resu lt Performing Organization Address [facility]/ZIP Co de Phone Number [facility] [address] [place] [address] * (ABNORMAL) Ionized calcium, whole blood (05/22/2024 11:32 AM EDT) Ionized Calcium, Whole Blood 4.4(L) 4.6 - 5.1 mg/dL LAB HEMATOLOGY METHOD 05/22/2024 11:45 AM EDT [facility] Blood Venous blood specimen / Unknown Venipuncture / Unknown 05/22/2024 11:32 AM EDT 05/22/2024 11:44 AM EDT Maite Austin MD LAB BLOOD ORDERABLES Final Resu lt Performing Organization Address City/[facility]/ZIP Co de Phone Number [facility] [address] [place] [address] * Type and Screen (05/22/2024 6:18 AM [...] TEST ORDERABLES Final Result Performing Organization Address City/[facility]/ZIP Co de Phone Number BLOOD BANK [address] [place] [address], * (ABNORMAL) Morphology (05/22/2024 6:13 AM EDT) RBC Fragments/Schist ocytes Slight(A) (none) LAB HEMATOLOGY METHOD 05/22/2024 8:34 AM EDT [facility] Polychromasia Moderate LAB HEMATOLOGY METHOD 05/22/2024 8:34 AM EDT [facility] Echinocytes Present LAB HEMATOLOGY METHOD 05/22/2024 8:34 AM EDT [facility] RBC Morphology Slide Reviewed LAB HEMATOLOGY METHOD 05/22/2024 8:34 AM EDT [facility] Platelet Estimate Platelet smear estimate consistent with automated count LAB HEMATOLOGY METHOD 05/22/2024 8:34 AM EDT [facility] Blood Venous blood specimen / Unknown Venipuncture / Unknown 05/22/2024 6:13 AM EDT 05/22/2024 6:20 AM EDT Maite Austin MD LAB BLOOD ORDERABLES Final Resu lt [facility] [address] [place] [address] * (ABNORMAL) Manual Differential (05/22/2024 6:13 AM EDT) Blasts % 0 % LAB HEMATOLOGY METHOD 05/22/2024 8:34 AM EDT [facility] Promyelocytes % 0 % LAB HEMATOLOGY METHOD 05/22/2024 8:34 AM EDT [facility] Myelocytes % 2 % LAB HEMATOLOGY METHOD 05/22/2024 8:34 AM EDT [facility] Metamyelocytes % 3 % LAB HEMATOLOGY METHOD 05/22/2024 8:34 AM EDT [facility] Neutrophils % 69 % LAB HEMATOLOGY METHOD 05/22/2024 8:34 AM EDT [facility] Lymphocytes % 13 % LAB HEMATOLOGY METHOD 05/22/2024 8:34 AM EDT [facility] Reactive Lymphocytes % 1 % LAB HEMATOLOGY METHOD 05/22/2024 8:34 AM EDT [facility] Monocytes % 9 % LAB HEMATOLOGY METHOD 05/22/2024 8:34 AM EDT [facility] Eosinophils % 2 % LAB HEMATOLOGY METHOD 05/22/2024 8:34 AM EDT [facility] Basophils % 1 % LAB HEMATOLOGY METHOD 05/22/2024 8:34 AM EDT [facility] Blasts Absolute 0.00 10*3/UL LAB HEMATOLOGY METHOD 05/22/2024 8:34 AM EDT [facility] Promyelocytes Absolute 0.00 10*3/uL LAB HEMATOLOGY METHOD 05/22/2024 8:34 AM EDT [facility] Myelocytes Absolute 0.23 10*3/uL LAB HEMATOLOGY METHOD 05/22/2024 8:34 AM EDT [facility] Metamyelocytes Absolute 0.35 10*3/uL LAB HEMATOLOGY METHOD 05/22/2024 8:34 AM EDT [facility] Neutrophils Absolute 7.98(H) 1.60 - 6.10 10*3/uL LAB HEMATOLOGY METHOD 05/22/2024 8:34 AM EDT [facility] Lymphocytes Absolute 1.50 1.20 - 3.90 10*3/uL LAB HEMATOLOGY METHOD 05/22/2024 8:34 AM EDT [facility] Reactive Lymphocytes Absolute 0.12 10*3/uL LAB HEMATOLOGY METHOD 05/22/2024 8:34 AM EDT [facility] Monocytes Absolute 1.04(H) 0.30 - 0.90 10*3/uL LAB HEMATOLOGY METHOD 05/22/2024 8:34 AM EDT [facility] Eosinophils Absolute 0.23 0.00 - 0.50 10*3/uL LAB HEMATOLOGY METHOD 05/22/2024 8:34 AM EDT [facility] Basophils Absolute 0.12(H) 0.00 - 0.10 10*3/uL LAB HEMATOLOGY METHOD 05/22/2024 8:34 AM EDT [facility] Blood Venous blood specimen / Unknown Venipuncture / Unknown 05/22/2024 6:13 AM EDT 05/22/2024 6:20 AM EDT us Maite Austin MD LAB BLOOD ORDERABLES Final Resu lt [facility] [address] [place] [address] * (ABNORMAL) Comprehensive metabolic panel (05/22/2024 6:13 AM EDT) Glucose, Plasma 115(H) 74 - 99 mg/dL 05/22/2024 7:01 AM EDT [facility] BUN, Plasma 12 7 - 21 mg/dL 05/22/2024 7:01 AM EDT [facility] Creatinine, Plasma 0.61 0.60 - 1.10 mg/dL 05/22/2024 7:01 AM EDT [facility] BUN/Creatinine Ratio 20 05/22/2024 7:01 AM EDT [facility] Sodium, Plasma 139 136 - 145 mmol/L 05/22/2024 7:01 AM EDT [facility] Potassium, Plasma 3.6 3.6 - 4.9 mmol/L 05/22/2024 7:01 AM EDT [facility] Chloride, Plasma 107 97 - 107 mmol/L 05/22/2024 7:01 AM EDT [facility] CO2, Plasma 24 22 - 29 mmol/L 05/22/2024 7:01 AM EDT [facility] Anion Gap 8 6 - 16 mmol/L 05/22/2024 7:01 AM EDT [facility] Total Calcium, Plasma 7.0(L) 8.9 - 10.2 mg/dL 05/22/2024 7:01 AM EDT [facility] Total Protein 5.4(L) 6.3 - 7.9 g/dL 05/22/2024 7:01 AM EDT [facility] Albumin, Plasma 1.8(L) 3.5 - 5.2 g/dL 05/22/2024 7:01 AM EDT [facility] AST, Plasma 31 10 - 35 U/L 05/22/2024 7:01 AM EDT [facility] ALT, Plasma 16 10 - 35 U/L 05/22/2024 7:01 AM EDT [facility] Alkaline Phosphatase, Plasma 112(H) 35 - 104 U/L 05/22/2024 7:01 AM EDT [facility] Total Bilirubin, Plasma 0.7 0.2 - 1.1 mg/dL 05/22/2024 7:01 AM EDT [facility] eGFRcr 106.4 mL/min/1.7 3m*2 05/22/2024 7:01 AM EDT [facility] Comment:Reported eGFRcr in m L/min/1.73m2 is based the CKD-EPI 2020 equation that does not use a race coefficient. Blood Venous blood specimen / Unknown Venipuncture / Unknown 05/22/2024 6:13 AM EDT 05/22/2024 6:20 AM EDT us Maite Austin MD LAB BLOOD ORDERABLES Final Resu lt [facility] [address] [place] [address] * (ABNORMAL) CBC and differential (05/22/2024 6:13 AM EDT) WBC Count 11.56(H) 3.70 - 10.30 10*3/uL LAB HEMATOLOGY METHOD 05/22/2024 8:34 AM EDT [facility] RBC Count 3.18(L) 3.90 - 5.20 10*6/uL LAB HEMATOLOGY METHOD 05/22/2024 8:34 AM EDT [facility] HGB 9.2(L) 11.2 - 15.7 g/dL LAB HEMATOLOGY METHOD 05/22/2024 8:34 AM EDT [facility] HCT 29.4(L) 34.0 - 45.0 % LAB HEMATOLOGY METHOD 05/22/2024 8:34 AM EDT [facility] Platelet Count 523(H) 155 - 369 10*3/uL LAB HEMATOLOGY METHOD 05/22/2024 8:34 AM EDT [facility] MCV 93 79 - 98 fL LAB HEMATOLOGY METHOD 05/22/2024 8:34 AM EDT [facility] MCH 28.9 26.0 - 32.0 pg LAB HEMATOLOGY METHOD 05/22/2024 8:34 AM EDT [facility] MCHC 31.3 30.7 - 35.5 g/dL LAB HEMATOLOGY METHOD 05/22/2024 8:34 AM EDT [facility] RDW 15.3(H) 11.5 - 14.5 % LAB HEMATOLOGY METHOD 05/22/2024 8:34 AM EDT [facility] MPV 9.7 8.8 - 12.5 fL LAB HEMATOLOGY METHOD 05/22/2024 8:34 AM EDT [facility] nRBC 0.4(H) <=0.0 per 100 WBCs LAB HEMATOLOGY METHOD 05/22/2024 8:34 AM EDT [facility] Differential Type Manual LAB HEMATOLOGY METHOD 05/22/2024 8:34 AM EDT [facility] Blood Venous blood specimen / Unknown Venipuncture / Unknown 05/22/2024 6:13 AM EDT 05/22/2024 6:20 AM EDT Narrative [facility] - 05/22/2024 8:34 AM EDT [...] ORDERABLES Final Resu lt Performing Organization Address [facility] Co de Phone Number [facility] [address] [place] [address] * (ABNORMAL) Ionized calcium, whole blood (05/22/2024 6:13 AM EDT) Ionized Calcium, Whole Blood 4.0(L) 4.6 - 5.1 mg/dL LAB HEMATOLOGY METHOD 05/22/2024 6:24 AM EDT [facility] Blood Venous blood specimen / Unknown Venipuncture / Unknown 05/22/2024 6:13 AM EDT 05/22/2024 6:22 AM EDT Maite Austin MD LAB BLOOD ORDERABLES Final Resu lt Performing Organization Address [facility] Phone Number [facility] [address] [place] [address] * (ABNORMAL) Morphology (05/22/2024 5:18 AM EDT) RBC Fragments/Schist ocytes Slight(A) (none) LAB HEMATOLOGY METHOD 05/22/2024 7:05 AM EDT [facility] Polychromasia Slight LAB HEMATOLOGY METHOD 05/22/2024 7:05 AM EDT [facility] Echinocytes Present LAB HEMATOLOGY METHOD 05/22/2024 7:05 AM EDT [facility] RBC Morphology Slide Reviewed LAB HEMATOLOGY METHOD 05/22/2024 7:05 AM EDT [facility] Platelet Estimate Platelet smear estimate consistent with automated count LAB HEMATOLOGY METHOD 05/22/2024 7:05 AM EDT [facility] Blood Venous blood specimen / Unknown Venipuncture / Unknown 05/22/2024 5:18 AM EDT 05/22/2024 5:25 AM EDT Reyna Obregon APRN LAB BLOOD ORDERABLES Namrata l Result [facility] [address] [place] [address] * (ABNORMAL) Manual Differential (05/22/2024 5:18 AM EDT) Blasts % 0 % LAB HEMATOLOGY METHOD 05/22/2024 7:05 AM EDT [facility] Promyelocytes % 0 % LAB HEMATOLOGY METHOD 05/22/2024 7:05 AM EDT [facility] Myelocytes % 2 % LAB HEMATOLOGY METHOD 05/22/2024 7:05 AM EDT [facility] Metamyelocytes % 4 % LAB HEMATOLOGY METHOD 05/22/2024 7:05 AM EDT [facility] Neutrophils % 64 % LAB HEMATOLOGY METHOD 05/22/2024 7:05 AM EDT [facility] Lymphocytes % 17 % LAB HEMATOLOGY METHOD 05/22/2024 7:05 AM EDT [facility] Reactive Lymphocytes % 2 % LAB HEMATOLOGY METHOD 05/22/2024 7:05 AM EDT [facility] Monocytes % 6 % LAB HEMATOLOGY METHOD 05/22/2024 7:05 AM EDT [facility] Eosinophils % 5 % LAB HEMATOLOGY METHOD 05/22/2024 7:05 AM EDT [facility] Basophils % 0 % LAB HEMATOLOGY METHOD 05/22/2024 7:05 AM EDT [facility] Blasts Absolute 0.00 10*3/UL LAB HEMATOLOGY METHOD 05/22/2024 7:05 AM EDT [facility] Promyelocytes Absolute 0.00 10*3/uL LAB HEMATOLOGY METHOD 05/22/2024 7:05 AM EDT [facility] Myelocytes Absolute 0.20 10*3/uL LAB HEMATOLOGY METHOD 05/22/2024 7:05 AM EDT [facility] Metamyelocytes Absolute 0.40 10*3/uL LAB HEMATOLOGY METHOD 05/22/2024 7:05 AM EDT [facility] Neutrophils Absolute 6.39(H) 1.60 - 6.10 10*3/uL LAB HEMATOLOGY METHOD 05/22/2024 7:05 AM EDT [facility] Lymphocytes Absolute 1.70 1.20 - 3.90 10*3/uL LAB HEMATOLOGY METHOD 05/22/2024 7:05 AM EDT [facility] Reactive Lymphocytes Absolute 0.20 10*3/uL LAB HEMATOLOGY METHOD 05/22/2024 7:05 AM EDT [facility] Monocytes Absolute 0.60 0.30 - 0.90 10*3/uL LAB HEMATOLOGY METHOD 05/22/2024 7:05 AM EDT [facility] Eosinophils Absolute 0.50 0.00 - 0.50 10*3/uL LAB HEMATOLOGY METHOD 05/22/2024 7:05 AM EDT [facility] Basophils Absolute 0.00 0.00 - 0.10 10*3/uL LAB HEMATOLOGY METHOD 05/22/2024 7:05 AM EDT [facility] Blood Venous blood specimen / Unknown Venipuncture / Unknown 05/22/2024 5:18 AM EDT 05/22/2024 5:25 AM EDT us Reyna Obregon APRN LAB BLOOD ORDERABLES Namrata l Result Performing Organization Address City/[facility]/ZIP Co de Phone Number [facility] [address] [place] [address] * (ABNORMAL) Ionized calcium, whole blood (05/22/2024 5:18 AM EDT) Ionized Calcium, Whole Blood 3.4(L) 4.6 - 5.1 mg/dL LAB HEMATOLOGY METHOD 05/22/2024 5:27 AM EDT [facility] Blood Venous blood specimen / Unknown Venipuncture / Unknown 05/22/2024 5:18 AM EDT 05/22/2024 5:26 AM EDT us Maite Austin MD LAB BLOOD ORDERABLES Final Resu lt [facility] [address] [place] [address] * (ABNORMAL) CBC and Differential (05/22/2024 5:18 AM EDT) WBC Count 9.98 3.70 - 10.30 10*3/uL LAB HEMATOLOGY METHOD 05/22/2024 7:05 AM EDT [facility] RBC Count 2.58(L) 3.90 - 5.20 10*6/uL LAB HEMATOLOGY METHOD 05/22/2024 7:05 AM EDT [facility] HGB 7.6(L) 11.2 - 15.7 g/dL LAB HEMATOLOGY METHOD 05/22/2024 7:05 AM EDT [facility] HCT 23.8(L) 34.0 - 45.0 % LAB HEMATOLOGY METHOD 05/22/2024 7:05 AM EDT [facility] Platelet Count 431(H) 155 - 369 10*3/uL LAB HEMATOLOGY METHOD 05/22/2024 7:05 AM EDT [facility] MCV 92 79 - 98 fL LAB HEMATOLOGY METHOD 05/22/2024 7:05 AM EDT [facility] MCH 29.5 26.0 - 32.0 pg LAB HEMATOLOGY METHOD 05/22/2024 7:05 AM EDT [facility] MCHC 31.9 30.7 - 35.5 g/dL LAB HEMATOLOGY METHOD 05/22/2024 7:05 AM EDT [facility] RDW 15.5(H) 11.5 - 14.5 % LAB HEMATOLOGY METHOD 05/22/2024 7:05 AM EDT [facility] MPV 9.4 8.8 - 12.5 fL LAB HEMATOLOGY METHOD 05/22/2024 7:05 AM EDT [facility] nRBC 0.4(H) <=0.0 per 100 WBCs LAB HEMATOLOGY METHOD 05/22/2024 7:05 AM EDT [facility] Differential Type Manual LAB HEMATOLOGY METHOD 05/22/2024 7:05 AM EDT [facility] Blood Venous blood specimen / Unknown Venipuncture / Unknown 05/22/2024 5:18 AM EDT 05/22/2024 5:25 AM EDT Narrative [facility] - 05/22/2024 7:05 AM EDT [...] Granulocytes is no longer being reported. us Reyna Obregon APRN LAB BLOOD ORDERABLES Namrata otto Result [facility] [address] [place] [address] * XR Chest 1 View (05/22/2024 3:44 [...] - 99 mg/dL 05/22/2024 12:41 AM EDT [facility] BUN, Plasma 11 7 - 21 mg/dL 05/22/2024 12:41 AM EDT [facility] Creatinine, Plasma 0.62 0.60 - 1.10 mg/dL 05/22/2024 12:41 AM EDT [facility] BUN/Creatinine Ratio 18 05/22/2024 12:41 AM EDT [facility] Sodium, Plasma 139 136 - 145 mmol/L 05/22/2024 12:41 AM EDT [facility] Potassium, Plasma 4.2 3.6 - 4.9 mmol/L 05/22/2024 12:41 AM EDT [facility] Chloride, Plasma 110(H) 97 - 107 mmol/L 05/22/2024 12:41 AM EDT [facility] CO2, Plasma 22 22 - 29 mmol/L 05/22/2024 12:41 AM EDT [facility] Anion Gap 7 6 - 16 mmol/L 05/22/2024 12:41 AM EDT [facility] Total Calcium, Plasma 7.5(L) 8.9 - 10.2 mg/dL 05/22/2024 12:41 AM EDT [facility] Phosphorus, Plasma 3.1 2.5 - 4.5 mg/dL 05/22/2024 12:41 AM EDT [facility] Albumin, Plasma 1.8(L) 3.5 - 5.2 g/dL 05/22/2024 12:41 AM EDT [facility] eGFRcr 106.0 mL/min/1.7 3m*2 05/22/2024 12:41 AM EDT [facility] Comment:Reported eGFRcr in m L/min/1.73m2 is based the CKD-EPI 2020 equation that does not use a race coefficient. Blood Venous blood specimen / Unknown Venipuncture / Unknown 05/22/2024 12:01 AM EDT 05/22/2024 12:10 AM EDT Maite Austin MD LAB BLOOD ORDERABLES Final Resu lt Performing Organization Address City/[facility]/ZIP Co de Phone Number [facility] [address] [place] [address] * Magnesium (05/22/2024 12:01 AM EDT) Magnesium, Plasma 1.9 1.9 - 2.4 mg/dL 05/22/2024 12:41 AM EDT [facility] Blood Venous blood specimen / Unknown Venipuncture / Unknown 05/22/2024 12:01 AM EDT 05/22/2024 12:10 AM EDT Maite Austin MD LAB BLOOD ORDERABLES Final Resu lt Performing Organization Address [facility] Co de Phone Number [facility] [address] [place] [address] * (ABNORMAL) Ionized calcium, whole blood (05/22/2024 12:01 AM EDT) Ionized Calcium, Whole Blood 4.3(L) 4.6 - 5.1 mg/dL LAB HEMATOLOGY METHOD 05/22/2024 12:13 AM EDT [facility] Blood Venous blood specimen / Unknown Venipuncture / Unknown 05/22/2024 12:01 AM EDT 05/22/2024 12:10 AM EDT Maite Austin MD LAB BLOOD ORDERABLES Final Resu lt Performing Organization Address City/[facility]/ZIP Co de Phone Number [facility] [address] [place] [address] * (ABNORMAL) Renal Function Panel, Plasma (05/21/2024 6:00 PM EDT) Glucose, Plasma 121(H) 74 - 99 mg/dL 05/21/2024 7:17 PM EDT [facility] BUN, Plasma 11 7 - 21 mg/dL 05/21/2024 7:17 PM EDT [facility] Creatinine, Plasma 0.58(L) 0.60 - 1.10 mg/dL 05/21/2024 7:17 PM EDT [facility] BUN/Creatinine Ratio 19 05/21/2024 7:17 PM EDT [facility] Sodium, Plasma 139 136 - 145 mmol/L 05/21/2024 7:17 PM EDT [facility] Potassium, Plasma 4.7 3.6 - 4.9 mmol/L 05/21/2024 7:17 PM EDT [facility] Chloride, Plasma 109(H) 97 - 107 mmol/L 05/21/2024 7:17 PM EDT [facility] CO2, Plasma 23 22 - 29 mmol/L 05/21/2024 7:17 PM EDT [facility] Anion Gap 7 6 - 16 mmol/L 05/21/2024 7:17 PM EDT [facility] Total Calcium, Plasma 7.7(L) 8.9 - 10.2 mg/dL 05/21/2024 7:17 PM EDT [facility] Phosphorus, Plasma 4.1 2.5 - 4.5 mg/dL 05/21/2024 7:17 PM EDT [facility] Albumin, Plasma 1.9(L) 3.5 - 5.2 g/dL 05/21/2024 7:17 PM EDT [facility] eGFRcr 107.7 mL/min/1.7 3m*2 05/21/2024 7:17 PM EDT [facility] Comment:Reported eGFRcr in m L/min/1.73m2 is based the CKD-EPI 2020 equation that does not use a race coefficient. Blood Venous blood specimen / Unknown Venipuncture / Unknown 05/21/2024 6:00 PM EDT 05/21/2024 6:24 PM EDT us Reyna Obregon ACCOUNTS RECEIVABLE SPECIALIST LAB BLOOD ORDERABLES Namrata l Result [facility] [address] [place] [address] * Magnesium (05/21/2024 6:00 PM EDT) Magnesium, Plasma 2.1 1.9 - 2.4 mg/dL 05/21/2024 7:17 PM EDT [facility] Blood Venous blood specimen / Unknown Venipuncture / Unknown 05/21/2024 6:00 PM EDT 05/21/2024 6:24 PM EDT Reyna Obregon ACCOUNTS RECEIVABLE SPECIALIST LAB BLOOD ORDERABLES Namrata l Result Performing Organization Address City/[facility]/ZIP Co de Phone Number [facility] [address] [place] [address] * (ABNORMAL) Ionized calcium, whole blood (05/21/2024 6:00 PM EDT) [facility] Ionized Calcium, Whole Blood 4.5(L) 4.6 - 5.1 mg/dL LAB HEMATOLOGY METHOD 05/21/2024 6:09 PM EDT [facility] Blood Venous blood specimen / Unknown Venipuncture / Unknown 05/21/2024 6:00 PM EDT 05/21/2024 6:08 PM EDT Reyna Andradeari ACCOUNTS RECEIVABLE SPECIALIST LAB BLOOD ORDERABLES Namrata l Result [facility] [address] [place] [address] * (ABNORMAL) Renal Function Panel, Plasma (05/21/2024 12:09 PM EDT) Glucose, Plasma 139(H) 74 - 99 mg/dL 05/21/2024 1:09 PM EDT [facility] BUN, Plasma 13 7 - 21 mg/dL 05/21/2024 1:09 PM EDT [facility] Creatinine, Plasma 0.62 0.60 - 1.10 mg/dL 05/21/2024 1:09 PM EDT [facility] BUN/Creatinine Ratio 21 05/21/2024 1:09 PM EDT [facility] Sodium, Plasma 139 136 - 145 mmol/L 05/21/2024 1:09 PM EDT [facility] Potassium, Plasma 4.3 3.6 - 4.9 mmol/L 05/21/2024 1:09 PM EDT [facility] Chloride, Plasma 111(H) 97 - 107 mmol/L 05/21/2024 1:09 PM EDT [facility] CO2, Plasma 21(L) 22 - 29 mmol/L 05/21/2024 1:09 PM EDT [facility] Anion Gap 7 6 - 16 mmol/L 05/21/2024 1:09 PM EDT [facility] Total Calcium, Plasma 7.5(L) 8.9 - 10.2 mg/dL 05/21/2024 1:09 PM EDT [facility] Phosphorus, Plasma 2.9 2.5 - 4.5 mg/dL 05/21/2024 1:09 PM EDT [facility] Albumin, Plasma 1.9(L) 3.5 - 5.2 g/dL 05/21/2024 1:09 PM EDT [facility] eGFRcr 106.0 mL/min/1.7 3m*2 05/21/2024 1:09 PM EDT [facility] Comment:Reported eGFRcr in m L/min/1.73m2 is based the CKD-EPI 2020 equation that does not use a race coefficient. Blood Arterial blood specimen / Unknown Venipuncture / Unknown 05/21/2024 12:09 PM EDT 05/21/2024 12:20 PM EDT us Reyna Obregon ACCOUNTS RECEIVABLE SPECIALIST LAB BLOOD ORDERABLES Namrata otto Result [facility] [address] [place] [address] * Magnesium (05/21/2024 12:09 PM EDT) Magnesium, Plasma 2.2 1.9 - 2.4 mg/dL 05/21/2024 1:09 PM EDT [facility] Blood Arterial blood specimen / Unknown Venipuncture / Unknown 05/21/2024 12:09 PM EDT 05/21/2024 12:20 PM EDT Reyna A Sabas ACCOUNTS RECEIVABLE SPECIALIST LAB BLOOD ORDERABLES Namrata l Result Performing Organization Address [facility]/ZIP Co de Phone Number [address] [address] * (ABNORMAL) Ionized calcium, whole blood (05/21/2024 12:09 PM EDT) Ionized Calcium, Whole Blood 4.2(L) 4.6 - 5.1 mg/dL LAB HEMATOLOGY METHOD 05/21/2024 12:21 PM EDT [facility] Blood Arterial blood specimen / Unknown Venipuncture / Unknown 05/21/2024 12:09 PM EDT 05/21/2024 12:19 PM EDT Reyna A Sabas ACCOUNTS RECEIVABLE SPECIALIST LAB BLOOD ORDERABLES Namrata l Result Performing Organization Address [facility] [place] [address] * [place] [facility], E/M 30-74 MINUTES (05/21/2024 11:41 [...] - 99 mg/dL 05/21/2024 6:03 AM EDT [facility] Comment:Accuracy of a [...] for testing. Comment 05/21/2024 6:03 AM EDT [facility] C.O.D. Biller ID Antoni, Cass 05/21/2024 6:03 AM EDT [facility] Device ID [id number] 05/21/2024 6:03 AM EDT [facility] Specimen Type POC Arterial 05/21/2024 6:03 AM EDT [facility] Blood Arterial blood specimen / Unknown 05/21/2024 6:01 AM EDT 05/21/2024 6:03 AM EDT us Maite Austin MD LAB POINT OF CARE TE ST DOCKED DEVICE UNSOLICITED RESULTS Final Result [facility] [address] [place] [id number] * (ABNORMAL) Ionized calcium, whole blood (05/21/2024 5:56 AM EDT) Ionized Calcium, Whole Blood 4.2(L) 4.6 - 5.1 mg/dL LAB HEMATOLOGY METHOD 05/21/2024 6:12 AM EDT [facility] Blood Venous blood specimen / Unknown Venipuncture / Unknown 05/21/2024 5:56 AM EDT 05/21/2024 6:11 AM EDT us Lauren Noguera ACCOUNTS RECEIVABLE SPECIALIST, AURIST, DNP LAB BLOOD ORDERABL ES Final Result [facility] [address] [place] [address] * Magnesium (05/21/2024 5:56 AM EDT) Magnesium, Plasma 2.2 1.9 - 2.4 mg/dL 05/21/2024 6:45 AM EDT [facility] Blood Venous blood specimen / Unknown Venipuncture / Unknown 05/21/2024 5:56 AM EDT 05/21/2024 6:12 AM EDT Lauren Noguera ACCOUNTS RECEIVABLE SPECIALIST, AURIST, DNP LAB BLOOD ORDERABL ES Final Result Performing Organization Address City/[facility]/ZIP Co de Phone Number [facility] [address] [place] [address] * (ABNORMAL) Renal Function Panel, Plasma (05/21/2024 5:56 AM EDT) Glucose, Plasma 139(H) 74 - 99 mg/dL 05/21/2024 6:45 AM EDT [facility] BUN, Plasma 13 7 - 21 mg/dL 05/21/2024 6:45 AM EDT [facility] Creatinine, Plasma 0.68 0.60 - 1.10 mg/dL 05/21/2024 6:45 AM EDT [facility] BUN/Creatinine Ratio 19 05/21/2024 6:45 AM EDT [facility] Sodium, Plasma 140 136 - 145 mmol/L 05/21/2024 6:45 AM EDT [facility] Potassium, Plasma 3.7 3.6 - 4.9 mmol/L 05/21/2024 6:45 AM EDT [facility] Chloride, Plasma 108(H) 97 - 107 mmol/L 05/21/2024 6:45 AM EDT [facility] CO2, Plasma 22 22 - 29 mmol/L 05/21/2024 6:45 AM EDT [facility] Anion Gap 10 6 - 16 mmol/L 05/21/2024 6:45 AM EDT [facility] Total Calcium, Plasma 7.3(L) 8.9 - 10.2 mg/dL 05/21/2024 6:45 AM EDT [facility] Phosphorus, Plasma 3.9 2.5 - 4.5 mg/dL 05/21/2024 6:45 AM EDT [facility] Albumin, Plasma 2.0(L) 3.5 - 5.2 g/dL 05/21/2024 6:45 AM EDT [facility] eGFRcr 103.6 mL/min/1.7 3m*2 05/21/2024 6:45 AM EDT [facility] Comment:Reported eGFRcr in m L/min/1.73m2 is based the CKD-EPI 2020 equation that does not use a race coefficient. Blood Venous blood specimen / Unknown Venipuncture / Unknown 05/21/2024 5:56 AM EDT 05/21/2024 6:12 AM EDT us Lauren Noguera ACCOUNTS RECEIVABLE SPECIALIST, AURIST, DNP LAB BLOOD ORDERABL ES Final Result [facility] [address] [place] [address] * XR Chest 1 View (05/21/2024 2:21 [...] calcium, whole blood (05/21/2024 12:09 AM EDT) Pathologist [facility] Ionized Calcium, Whole Blood 4.3(L) 4.6 - 5.1 mg/dL LAB HEMATOLOGY METHOD 05/21/2024 12:16 AM EDT [facility] Blood Venous blood specimen / Unknown Venipuncture / Unknown 05/21/2024 12:09 AM EDT 05/21/2024 12:15 AM EDT us Lauren Noguera ACCOUNTS RECEIVABLE SPECIALIST, AURIST, DNP LAB BLOOD ORDERABL ES Final Result [facility] [address] [place] [address] * Morphology (05/20/2024 11:48 PM EDT) Polychromasia Slight LAB HEMATOLOGY METHOD 05/21/2024 1:20 AM EDT [facility] RBC Morphology Slide Reviewed LAB HEMATOLOGY METHOD 05/21/2024 1:20 AM EDT [facility] Platelet Estimate Platelet smear estimate consistent with automated count LAB HEMATOLOGY METHOD 05/21/2024 1:20 AM EDT [facility] Blood Venous blood specimen / Unknown Venipuncture / Unknown 05/20/2024 11:48 PM EDT 05/21/2024 12:00 AM EDT Marybel Suarez APRN LAB BLOOD ORDERABLES Fin al Result [facility] [address] [place] [address] * (ABNORMAL) Manual Differential (05/20/2024 11:48 PM EDT) Blasts % 0 % LAB HEMATOLOGY METHOD 05/21/2024 1:20 AM EDT [facility] Promyelocytes % 0 % LAB HEMATOLOGY METHOD 05/21/2024 1:20 AM EDT [facility] Myelocytes % 4 % LAB HEMATOLOGY METHOD 05/21/2024 1:20 AM EDT [facility] Metamyelocytes % 0 % LAB HEMATOLOGY METHOD 05/21/2024 1:20 AM EDT [facility] Neutrophils % 59 % LAB HEMATOLOGY METHOD 05/21/2024 1:20 AM EDT [facility] Lymphocytes % 20 % LAB HEMATOLOGY METHOD 05/21/2024 1:20 AM EDT [facility] Reactive Lymphocytes % 1 % LAB HEMATOLOGY METHOD 05/21/2024 1:20 AM EDT [facility] Monocytes % 13 % LAB HEMATOLOGY METHOD 05/21/2024 1:20 AM EDT [facility] Eosinophils % 2 % LAB HEMATOLOGY METHOD 05/21/2024 1:20 AM EDT [facility] Basophils % 1 % LAB HEMATOLOGY METHOD 05/21/2024 1:20 AM EDT [facility] Blasts Absolute 0.00 10*3/UL LAB HEMATOLOGY METHOD 05/21/2024 1:20 AM EDT [facility] Promyelocytes Absolute 0.00 10*3/uL LAB HEMATOLOGY METHOD 05/21/2024 1:20 AM EDT [facility] Myelocytes Absolute 0.52 10*3/uL LAB HEMATOLOGY METHOD 05/21/2024 1:20 AM EDT [facility] Metamyelocytes Absolute 0.00 10*3/uL LAB HEMATOLOGY METHOD 05/21/2024 1:20 AM EDT [facility] Neutrophils Absolute 7.60(H) 1.60 - 6.10 10*3/uL LAB HEMATOLOGY METHOD 05/21/2024 1:20 AM EDT [facility] Lymphocytes Absolute 2.58 1.20 - 3.90 10*3/uL LAB HEMATOLOGY METHOD 05/21/2024 1:20 AM EDT [facility] Reactive Lymphocytes Absolute 0.13 10*3/uL LAB HEMATOLOGY METHOD 05/21/2024 1:20 AM EDT [facility] Monocytes Absolute 1.67(H) 0.30 - 0.90 10*3/uL LAB HEMATOLOGY METHOD 05/21/2024 1:20 AM EDT [facility] Eosinophils Absolute 0.26 0.00 - 0.50 10*3/uL LAB HEMATOLOGY METHOD 05/21/2024 1:20 AM EDT [facility] Basophils Absolute 0.13(H) 0.00 - 0.10 10*3/uL LAB HEMATOLOGY METHOD 05/21/2024 1:20 AM EDT [facility] Blood Venous blood specimen / Unknown Venipuncture / Unknown 05/20/2024 11:48 PM EDT 05/21/2024 12:00 AM EDT us Marybel Suarez ACCOUNTS RECEIVABLE SPECIALIST LAB BLOOD ORDERABLES Fin al Result [facility] [address] [place] [address] * Magnesium (05/20/2024 11:48 PM EDT) Magnesium, Plasma 2.3 1.9 - 2.4 mg/dL 05/21/2024 12:30 AM EDT [facility] Blood Venous blood specimen / Unknown Venipuncture / Unknown 05/20/2024 11:48 PM EDT 05/21/2024 12:00 AM EDT us Lauren Noguera ACCOUNTS RECEIVABLE SPECIALIST, AURIST, DNP LAB BLOOD ORDERABL ES Final Result Performing Organization Address City/[facility]/ZIP Co de Phone Number [facility] [address] [place] [address] * (ABNORMAL) Renal Function Panel, Plasma (05/20/2024 11:48 PM EDT) Glucose, Plasma 141(H) 74 - 99 mg/dL 05/21/2024 12:30 AM EDT [facility] BUN, Plasma 12 7 - 21 mg/dL 05/21/2024 12:30 AM EDT [facility] Creatinine, Plasma 0.76 0.60 - 1.10 mg/dL 05/21/2024 12:30 AM EDT [facility] BUN/Creatinine Ratio 16 05/21/2024 12:30 AM EDT [facility] Sodium, Plasma 141 136 - 145 mmol/L 05/21/2024 12:30 AM EDT [facility] Potassium, Plasma 3.5(L) 3.6 - 4.9 mmol/L 05/21/2024 12:30 AM EDT [facility] Chloride, Plasma 110(H) 97 - 107 mmol/L 05/21/2024 12:30 AM EDT [facility] CO2, Plasma 23 22 - 29 mmol/L 05/21/2024 12:30 AM EDT [facility] Anion Gap 8 6 - 16 mmol/L 05/21/2024 12:30 AM EDT [facility] Total Calcium, Plasma 7.4(L) 8.9 - 10.2 mg/dL 05/21/2024 12:30 AM EDT [facility] Phosphorus, Plasma 3.1 2.5 - 4.5 mg/dL 05/21/2024 12:30 AM EDT [facility] Albumin, Plasma 2.0(L) 3.5 - 5.2 g/dL 05/21/2024 12:30 AM EDT [facility] eGFRcr 93.3 mL/min/1.7 3m*2 05/21/2024 12:30 AM EDT [facility] Comment:Reported eGFRcr in m L/min/1.73m2 is based the CKD-EPI 2020 equation that does not use a race coefficient. Blood Venous blood specimen / Unknown Venipuncture / Unknown 05/20/2024 11:48 PM EDT 05/21/2024 12:00 AM EDT us Norrah J Chuckie ACCOUNTS RECEIVABLE SPECIALIST, AURIST, DNP LAB BLOOD ORDERABL ES Final Result [facility] [address] [place] [address] * (ABNORMAL) CBC and Differential (05/20/2024 11:48 PM EDT) WBC Count 12.88(H) 3.70 - 10.30 10*3/uL LAB HEMATOLOGY METHOD 05/21/2024 1:20 AM EDT [facility] RBC Count 3.29(L) 3.90 - 5.20 10*6/uL LAB HEMATOLOGY METHOD 05/21/2024 1:20 AM EDT [facility] HGB 9.6(L) 11.2 - 15.7 g/dL LAB HEMATOLOGY METHOD 05/21/2024 1:20 AM EDT [facility] HCT 29.5(L) 34.0 - 45.0 % LAB HEMATOLOGY METHOD 05/21/2024 1:20 AM EDT [facility] Platelet Count 605(H) 155 - 369 10*3/uL LAB HEMATOLOGY METHOD 05/21/2024 1:20 AM EDT [facility] MCV 90 79 - 98 fL LAB HEMATOLOGY METHOD 05/21/2024 1:20 AM EDT [facility] MCH 29.2 26.0 - 32.0 pg LAB HEMATOLOGY METHOD 05/21/2024 1:20 AM EDT [facility] MCHC 32.5 30.7 - 35.5 g/dL LAB HEMATOLOGY METHOD 05/21/2024 1:20 AM EDT [facility] RDW 15.7(H) 11.5 - 14.5 % LAB HEMATOLOGY METHOD 05/21/2024 1:20 AM EDT [facility] MPV 9.7 8.8 - 12.5 fL LAB HEMATOLOGY METHOD 05/21/2024 1:20 AM EDT [facility] nRBC 0.2(H) <=0.0 per 100 WBCs LAB HEMATOLOGY METHOD 05/21/2024 1:20 AM EDT [facility] Differential Type Manual LAB HEMATOLOGY METHOD 05/21/2024 1:20 AM EDT [facility] Blood Venous blood specimen / Unknown Venipuncture / Unknown 05/20/2024 11:48 PM EDT 05/21/2024 12:00 AM EDT Narrative [facility] - 05/21/2024 1:20 AM EDT Therapeutic [...] reported. Marybel Suarez APRN LAB BLOOD ORDERABLES [facility] al Result [facility] [address] [place] [address] * (ABNORMAL) Comprehensive metabolic panel (05/20/2024 11:48 PM EDT) Glucose, Plasma 141(H) 74 - 99 mg/dL 05/21/2024 12:30 AM EDT [facility] BUN, Plasma 12 7 - 21 mg/dL 05/21/2024 12:30 AM EDT [facility] Creatinine, Plasma 0.76 0.60 - 1.10 mg/dL 05/21/2024 12:30 AM EDT [facility] BUN/Creatinine Ratio 16 05/21/2024 12:30 AM EDT [facility] Sodium, Plasma 141 136 - 145 mmol/L 05/21/2024 12:30 AM EDT [facility] Potassium, Plasma 3.5(L) 3.6 - 4.9 mmol/L 05/21/2024 12:30 AM EDT [facility] Chloride, Plasma 110(H) 97 - 107 mmol/L 05/21/2024 12:30 AM EDT [facility] CO2, Plasma 23 22 - 29 mmol/L 05/21/2024 12:30 AM EDT [facility] Anion Gap 8 6 - 16 mmol/L 05/21/2024 12:30 AM EDT [facility] Total Calcium, Plasma 7.4(L) 8.9 - 10.2 mg/dL 05/21/2024 12:30 AM EDT [facility] Total Protein 5.7(L) 6.3 - 7.9 g/dL 05/21/2024 12:30 AM EDT [facility] Albumin, Plasma 2.0(L) 3.5 - 5.2 g/dL 05/21/2024 12:30 AM EDT [facility] AST, Plasma 39(H) 10 - 35 U/L 05/21/2024 12:30 AM EDT [facility] ALT, Plasma 22 10 - 35 U/L 05/21/2024 12:30 AM EDT [facility] Alkaline Phosphatase, Plasma 120(H) 35 - 104 U/L 05/21/2024 12:30 AM EDT [facility] Total Bilirubin, Plasma 0.7 0.2 - 1.1 mg/dL 05/21/2024 12:30 AM EDT [facility] eGFRcr 93.3 mL/min/1.7 3m*2 05/21/2024 12:30 AM EDT [facility] Comment:Reported eGFRcr in m L/min/1.73m2 is based the CKD-EPI 2020 equation that does not use a race coefficient. Blood Venous blood specimen / Unknown Venipuncture / Unknown 05/20/2024 11:48 PM EDT 05/21/2024 12:00 AM EDT us Marybel Suarez APRN LAB BLOOD ORDERABLES Fin al Result [facility] [address] [place] [address] * (ABNORMAL) POCT glucose meter (05/20/2024 11:47 PM EDT) POCT Glucose 139(H) 74 - 99 mg/dL 05/20/2024 11:57 PM EDT [facility] Comment:Accuracy of [...] 05/20/2024 11:57 PM EDT [facility] C.O.D. Biller ID Cass Corrales 05/20/2024 11:57 PM EDT [facility] Device ID [id number] 05/20/2024 11:57 PM EDT [facility] Specimen Type POC Arterial 05/20/2024 11:57 PM [facility]T [facility] Blood Arterial blood specimen / Unknown 05/20/2024 11:47 PM EDT 05/20/2024 11:57 PM EDT Maite Austin MD LAB POINT OF CARE TE ST DOCKED DEVICE UNSOLICITED RESULTS Final Result Performing Organization Address City/State/[facility] Co de Phone Number [facility] [address] [place] [address] * (ABNORMAL) POCT glucose meter (05/20/2024 6:35 PM EDT) [facility] POCT Glucose 124(H) 74 - 99 mg/dL [...] 05/20/2024 6:37 PM EDT [facility] C.O.D. Biller ID [email or web address] 05/20/2024 6:37 PM EDT [facility] Device ID [id number] 05/20/2024 6:37 PM EDT [facility] Specimen Type POC Arterial 05/20/2024 6:37 PM EDT [facility] Blood Arterial blood specimen / Unknown 05/20/2024 6:35 PM EDT 05/20/2024 6:37 PM EDT us Maite Austin MD LAB POINT OF CARE TE ST DOCKED DEVICE UNSOLICITED RESULTS Final Result Performing Organization Address City/[facility]/ZIP Co de Phone Number [facility] [address] [place] [address] * Magnesium (05/20/2024 6:35 PM EDT) Magnesium, Plasma 2.2 1.9 - 2.4 mg/dL 05/20/2024 7:22 PM EDT [facility] Blood Venous blood specimen / Unknown Venipuncture / Unknown 05/20/2024 6:35 PM EDT 05/20/2024 6:49 PM EDT us Maite Austin MD LAB BLOOD ORDERABLES Final Resu lt Performing Organization Address [facility] Co de Phone Number [facility] [address] [place] [address] * (ABNORMAL) Renal function panel (05/20/2024 6:35 PM EDT) Glucose, Plasma 135(H) 74 - 99 mg/dL 05/20/2024 7:22 PM EDT [facility] BUN, Plasma 12 7 - 21 mg/dL 05/20/2024 7:22 PM EDT [facility] Creatinine, Plasma 0.78 0.60 - 1.10 mg/dL 05/20/2024 7:22 PM EDT [facility] BUN/Creatinine Ratio 15 05/20/2024 7:22 PM EDT [facility] Sodium, Plasma 139 136 - 145 mmol/L 05/20/2024 7:22 PM EDT [facility] Potassium, Plasma 3.3(L) 3.6 - 4.9 mmol/L 05/20/2024 7:22 PM EDT [facility] Chloride, Plasma 107 97 - 107 mmol/L 05/20/2024 7:22 PM EDT [facility] CO2, Plasma 21(L) 22 - 29 mmol/L 05/20/2024 7:22 PM EDT [facility] Anion Gap 11 6 - 16 mmol/L 05/20/2024 7:22 PM EDT [facility] Total Calcium, Plasma 7.5(L) 8.9 - 10.2 mg/dL 05/20/2024 7:22 PM EDT [facility] Phosphorus, Plasma 2.1(L) 2.5 - 4.5 mg/dL 05/20/2024 7:22 PM EDT [facility] Albumin, Plasma 2.2(L) 3.5 - 5.2 g/dL 05/20/2024 7:22 PM EDT [facility] eGFRcr 90.4 mL/min/1.7 3m*2 05/20/2024 7:22 PM EDT [facility] Comment:Reported eGFRcr in m L/min/1.73m2 is based the CKD-EPI 2020 equation that does not use a race coefficient. Blood Venous blood specimen / Unknown Venipuncture / Unknown 05/20/2024 6:35 PM EDT 05/20/2024 6:49 PM EDT us Maite Austin MD LAB BLOOD ORDERABLES Final Resu lt [facility] [address] [place] [address] * [place] [facility], E/M 30-74 MINUTES (05/20/2024 1:19 [...] - 99 mg/dL 05/20/2024 12:40 PM EDT [facility] Comment:Accuracy of a [...] for testing. Comment 05/20/2024 12:40 PM EDT [facility] C.O.D. Biller ID Dina Casiano 05/20/2024 12:40 PM EDT [facility] Device ID [id number] 05/20/2024 12:40 PM EDT [facility] Specimen Type POC Arterial 05/20/2024 12:40 PM EDT [facility] Blood Arterial blood specimen / Unknown 05/20/2024 12:39 PM EDT 05/20/2024 12:40 PM EDT us Maite Austin MD LAB POINT OF CARE TE ST DOCKED DEVICE UNSOLICITED RESULTS Final Result Performing Organization Address City/State/[facility] Co de Phone Number [facility] [address] [place] [address] * CT Abdomen Pelvis wo IV Contrast [...] LAB HEMATOLOGY METHOD 05/20/2024 2:25 AM EDT [facility] pCO2, Arterial 36 35 - 48 mmHg LAB HEMATOLOGY METHOD 05/20/2024 2:25 AM EDT [facility] pO2, Arterial 102 83 - 108 mmHg LAB HEMATOLOGY METHOD 05/20/2024 2:25 AM EDT [facility] SO2, Measured, Arterial 97 94 - 98 % LAB HEMATOLOGY METHOD 05/20/2024 2:25 AM EDT [facility] Base Excess, Arterial -1.7 -2.0 - 3.0 mmol/L LAB HEMATOLOGY METHOD 05/20/2024 2:25 AM EDT [facility] Bicarbonate, Calculated, Arterial 23 22 - 26 mmol/L LAB HEMATOLOGY METHOD 05/20/2024 2:25 AM EDT [facility] Hematocrit, Whole Blood 27.0(L) 34.0 - 45.0 % LAB HEMATOLOGY METHOD 05/20/2024 2:25 AM EDT [facility] Sodium, Whole Blood 141 136 - 145 mmol/L LAB HEMATOLOGY METHOD 05/20/2024 2:25 AM EDT [facility] Potassium, Whole Blood 3.6 3.6 - 4.9 mmol/L LAB HEMATOLOGY METHOD 05/20/2024 2:25 AM EDT [facility] Chloride, Whole Blood 112(H) 97 - 107 mmol/L LAB HEMATOLOGY METHOD 05/20/2024 2:25 AM EDT [facility] Glucose, Whole Blood 120(H) 74 - 99 mg/dL LAB HEMATOLOGY METHOD 05/20/2024 2:25 AM EDT [facility] Ionized Calcium, Whole Blood 4.1(L) 4.6 - 5.1 mg/dL LAB HEMATOLOGY METHOD 05/20/2024 2:25 AM EDT [facility] Lactate, Arterial, Whole Blood 1.0 0.5 - 1.6 mmol/L LAB HEMATOLOGY METHOD 05/20/2024 2:25 AM EDT [facility] Blood Arterial blood specimen / Unknown Arterial Puncture / Unknown 05/20/2024 2:16 AM EDT 05/20/2024 2:23 AM EDT us Marybel Suarez APRN LAB BLOOD ORDERABLES Fin al Result [facility] [address] [place] [address] * Phosphorus (05/20/2024 2:15 AM EDT) Phosphorus, Plasma 3.2 2.5 - 4.5 mg/dL 05/20/2024 1:41 PM EDT [facility] Blood Venous blood specimen / Unknown Venipuncture / Unknown 05/20/2024 2:15 AM EDT 05/20/2024 2:21 AM EDT us Maite Austin MD LAB BLOOD ORDERABLES Final Resu lt [facility] [address] [place] [address] * (ABNORMAL) CBC and Differential (05/20/2024 2:15 AM EDT) WBC Count 12.37(H) 3.70 - 10.30 10*3/uL LAB HEMATOLOGY METHOD 05/20/2024 3:19 AM EDT [facility] RBC Count 3.13(L) 3.90 - 5.20 10*6/uL LAB HEMATOLOGY METHOD 05/20/2024 3:19 AM EDT [facility] HGB 9.1(L) 11.2 - 15.7 g/dL LAB HEMATOLOGY METHOD 05/20/2024 3:19 AM EDT [facility] HCT 28.3(L) 34.0 - 45.0 % LAB HEMATOLOGY METHOD 05/20/2024 3:19 AM EDT [facility] Platelet Count 632(H) 155 - 369 10*3/uL LAB HEMATOLOGY METHOD 05/20/2024 3:19 AM EDT [facility] MCV 90 79 - 98 fL LAB HEMATOLOGY METHOD 05/20/2024 3:19 AM EDT [facility] MCH 29.1 26.0 - 32.0 pg LAB HEMATOLOGY METHOD 05/20/2024 3:19 AM EDT [facility] MCHC 32.2 30.7 - 35.5 g/dL LAB HEMATOLOGY METHOD 05/20/2024 3:19 AM EDT [facility] RDW 16.3(H) 11.5 - 14.5 % LAB HEMATOLOGY METHOD 05/20/2024 3:19 AM EDT [facility] MPV 9.8 8.8 - 12.5 fL LAB HEMATOLOGY METHOD 05/20/2024 3:19 AM EDT [facility] nRBC 0.0 <=0.0 per 100 WBCs LAB HEMATOLOGY METHOD 05/20/2024 3:19 AM EDT [facility] Differential Type Automated LAB HEMATOLOGY METHOD 05/20/2024 3:19 AM EDT [facility] Neutrophils % 64 % LAB HEMATOLOGY METHOD 05/20/2024 3:19 AM EDT [facility] Lymphocytes % 18 % LAB HEMATOLOGY METHOD 05/20/2024 3:19 AM EDT [facility] Monocytes % 11 % LAB HEMATOLOGY METHOD 05/20/2024 3:19 AM EDT [facility] Eosinophils % 3 % LAB HEMATOLOGY METHOD 05/20/2024 3:19 AM EDT [facility] Basophils % 1 % LAB HEMATOLOGY METHOD 05/20/2024 3:19 AM EDT [facility] Immature Granulocytes % 3 % LAB HEMATOLOGY METHOD 05/20/2024 3:19 AM EDT [facility] Neutrophils Absolute 7.92(H) 1.60 - 6.10 10*3/uL LAB HEMATOLOGY METHOD 05/20/2024 3:19 AM EDT [facility] Lymphocytes Absolute 2.27 1.20 - 3.90 10*3/uL LAB HEMATOLOGY METHOD 05/20/2024 3:19 AM EDT [facility] Monocytes Absolute 1.36(H) 0.30 - 0.90 10*3/uL LAB HEMATOLOGY METHOD 05/20/2024 3:19 AM EDT [facility] Eosinophils Absolute 0.37 0.00 - 0.50 10*3/uL LAB HEMATOLOGY METHOD 05/20/2024 3:19 AM EDT [facility] Basophils Absolute 0.10 0.00 - 0.10 10*3/uL LAB HEMATOLOGY METHOD 05/20/2024 3:19 AM EDT [facility] Immature Granulocytes Absolute 0.35(H) 0.00 - 0.06 10*3/uL LAB HEMATOLOGY METHOD 05/20/2024 3:19 AM EDT [facility] Blood Venous blood specimen / Unknown Venipuncture / Unknown 05/20/2024 2:15 AM EDT 05/20/2024 2:21 AM EDT Narrative [facility] - 05/20/2024 3:19 AM EDT Therapeutic decision making should be based on absolute values, rather than percentages. Marybel Suarez APRN LAB BLOOD ORDERABLES Fin al Result [facility] [address] [place] [address] * (ABNORMAL) Magnesium, Plasma (05/20/2024 2:15 AM EDT) Magnesium, Plasma 2.7(H) 1.9 - 2.4 mg/dL 05/20/2024 2:51 AM EDT [facility] Blood Venous blood specimen / Unknown Venipuncture / Unknown 05/20/2024 2:15 AM EDT 05/20/2024 2:21 AM EDT Marybel Suarez APRN LAB BLOOD ORDERABLES Fin al Result [facility] [address] [place] [address] * (ABNORMAL) Comprehensive metabolic panel (05/20/2024 2:15 AM EDT) Pathologist [facility] Glucose, Plasma 127(H) 74 - 99 mg/dL 05/20/2024 2:51 AM EDT [facility] BUN, Plasma 11 7 - 21 mg/dL 05/20/2024 2:51 AM EDT [facility] Creatinine, Plasma 0.78 0.60 - 1.10 mg/dL 05/20/2024 2:51 AM EDT [facility] BUN/Creatinine Ratio 14 05/20/2024 2:51 AM EDT [facility] Sodium, Plasma 141 136 - 145 mmol/L 05/20/2024 2:51 AM EDT [facility] Potassium, Plasma 3.9 3.6 - 4.9 mmol/L 05/20/2024 2:51 AM EDT [facility] Chloride, Plasma 112(H) 97 - 107 mmol/L 05/20/2024 2:51 AM EDT [facility] CO2, Plasma 21(L) 22 - 29 mmol/L 05/20/2024 2:51 AM EDT [facility] Anion Gap 8 6 - 16 mmol/L 05/20/2024 2:51 AM EDT [facility] Total Calcium, Plasma 7.0(L) 8.9 - 10.2 mg/dL 05/20/2024 2:51 AM EDT [facility] Total Protein 5.5(L) 6.3 - 7.9 g/dL 05/20/2024 2:51 AM EDT [facility] Albumin, Plasma 2.0(L) 3.5 - 5.2 g/dL 05/20/2024 2:51 AM EDT [facility] AST, Plasma 53(H) 10 - 35 U/L 05/20/2024 2:51 AM EDT [facility] ALT, Plasma 20 10 - 35 U/L 05/20/2024 2:51 AM EDT [facility] Alkaline Phosphatase, Plasma 117(H) 35 - 104 U/L 05/20/2024 2:51 AM EDT [facility] Total Bilirubin, Plasma 0.7 0.2 - 1.1 mg/dL 05/20/2024 2:51 AM EDT [facility] eGFRcr 90.4 mL/min/1.7 3m*2 05/20/2024 2:51 AM EDT [facility] Comment:Reported eGFRcr in m L/min/1.73m2 is based the CKD-EPI 2020 equation that does not use a race coefficient. Blood Venous blood specimen / Unknown Venipuncture / Unknown 05/20/2024 2:15 AM EDT 05/20/2024 2:21 AM EDT [facility] LAB BLOOD ORDERABLES Fin al Result [facility] [address] [place] [address] * (ABNORMAL) Lipase (05/20/2024 2:15 AM EDT) Lipase, Plasma 84(H) 19 - 63 U/L 05/20/2024 2:51 AM EDT [facility] Blood Venous blood specimen / Unknown Venipuncture / Unknown 05/20/2024 2:15 AM EDT 05/20/2024 2:21 AM EDT [facility] [employer] [employer] LAB BLOOD ORDERABLES Fin al Result Performing Organization Address City/[facility]/ZIP Co de Phone Number [facility] [address] [place] [address] * XR Chest 1 View (05/20/2024 1:23 [...] Edson Ambrose MD on 05/20/2024 9:18 AM us Maite Austin MD IMG XR PROCEDURES Final Result * (ABNORMAL) POCT glucose meter (05/19/2024 11:30 PM EDT) POCT Glucose 133(H) 74 - 99 mg/dL 05/19/2024 11:31 PM EDT [facility] Comment:Accuracy of a glucos e result [...] for testing. Comment 05/19/2024 11:31 PM EDT [facility] C.O.D. Biller ID Efren Lovell 05/20/19 11:31 PM EDT [facility] Device ID [id number] 05/19/2024 11:31 PM EDT [facility] Specimen Type POC Capillary 05/19/2024 11:31 PM EDT [facility] Blood Capillary blood specimen / Unknown 05/19/2024 11:30 PM EDT 05/19/2024 11:31 PM EDT Maite Austin MD LAB POINT OF CARE TE ST DOCKED DEVICE UNSOLICITED RESULTS Final Result Performing Organization Address City/[facility]/ZIP Co de Phone Number [facility] [address] [place] [address] * (ABNORMAL) Magnesium (05/19/2024 6:32 PM EDT) Magnesium, Plasma 1.8(L) 1.9 - 2.4 mg/dL 05/19/2024 7:12 PM EDT [facility] Blood Venous blood specimen / Unknown Venipuncture / Unknown 05/19/2024 6:32 PM EDT 05/19/2024 6:46 PM EDT Maite Austin MD LAB BLOOD ORDERABLES Final Resu lt [facility] [address] [place] [address] * (ABNORMAL) Renal function panel (05/19/2024 6:32 PM EDT) Glucose, Plasma 103(H) 74 - 99 mg/dL 05/19/2024 7:12 PM EDT [facility] BUN, Plasma 10 7 - 21 mg/dL 05/19/2024 7:12 PM EDT [facility] Creatinine, Plasma 0.87 0.60 - 1.10 mg/dL 05/19/2024 7:12 PM EDT [facility] BUN/Creatinine Ratio 11 05/19/2024 7:12 PM EDT [facility] Sodium, Plasma 141 136 - 145 mmol/L 05/19/2024 7:12 PM EDT [facility] Potassium, Plasma 4.0 3.6 - 4.9 mmol/L 05/19/2024 7:12 PM EDT [facility] Chloride, Plasma 111(H) 97 - 107 mmol/L 05/19/2024 7:12 PM EDT [facility] CO2, Plasma 20(L) 22 - 29 mmol/L 05/19/2024 7:12 PM EDT [facility] Anion Gap 10 6 - 16 mmol/L 05/19/2024 7:12 PM EDT [facility] Total Calcium, Plasma 6.9(L) 8.9 - 10.2 mg/dL 05/19/2024 7:12 PM EDT [facility] Phosphorus, Plasma 2.8 2.5 - 4.5 mg/dL 05/19/2024 7:12 PM EDT [facility] Albumin, Plasma 2.1(L) 3.5 - 5.2 g/dL 05/19/2024 7:12 PM EDT [facility] eGFRcr 79.3 mL/min/1.7 3m*2 05/19/2024 7:12 PM EDT [facility] Comment:Reported eGFRcr in m L/min/1.73m2 is based the CKD-EPI 2020 equation that does not use a race coefficient. Blood Venous blood specimen / Unknown Venipuncture / Unknown 05/19/2024 6:32 PM EDT 05/19/2024 6:46 PM EDT us Maite Austin MD LAB BLOOD ORDERABLES Final Resu lt [facility] [address] [place] [address] * (ABNORMAL) POCT glucose meter (05/19/2024 6:31 PM EDT) POCT Glucose 108(H) 74 - 99 mg/dL 05/19/2024 6:33 PM EDT [facility] Comment:Accuracy of [...] Comment 05/19/2024 6:33 PM EDT [facility] C.O.D. Biller ID Dina Casiano 05/19/2024 6:33 PM EDT [facility] Device ID [id number] 05/19/2024 6:33 PM EDT [facility] Specimen Type POC Arterial 05/19/2024 6:33 PM EDT [facility] Blood Arterial blood specimen / Unknown 05/19/2024 6:31 PM EDT 05/19/2024 6:33 PM EDT us Maite Austin MD LAB POINT OF CARE TE ST DOCKED DEVICE UNSOLICITED RESULTS Final Result Performing Organization Address City/State/[facility] Co de Phone Number [facility] [address] [place] [address] * [place] [facility], E/M 30-74 MINUTES (05/19/2024 2:52 [...] POCT glucose meter (05/19/2024 11:52 AM EDT) Pathologist [facility] POCT Glucose 102(H) 74 - [...] Comment 05/19/2024 11:54 AM EDT [facility] C.O.D. Biller ID Dina Casiano 05/19/2024 11:54 AM EDT [facility] Device ID [id number] 05/19/2024 11:54 AM EDT [facility] Specimen Type POC Arterial 05/19/2024 11:54 AM EDT [facility] Blood Arterial blood specimen / Unknown 05/19/2024 11:52 AM EDT 05/19/2024 11:54 AM EDT us Maite Austin MD LAB POINT OF CARE TE ST DOCKED DEVICE UNSOLICITED RESULTS Final Result Performing Organization Address City/State/[facility] Co de Phone Number [facility] [address] [place] [address] * Triglycerides (05/19/2024 11:42 AM EDT) Pathologist [facility] Triglycerides, Plasma 76 <150 mg/dL 05/19/2024 1:45 PM EDT [facility] Comment: Triglyceride Reference Range (age >17 years): Desirable: <150 mg/dL Borderline high: 150 to 199 mg/dL High: 200 to 499 mg/dL Very high: >499 mg/dL Increased risk of pancreatitis: >1000 mg/dL Fasting greater than or equal to 12 hours? Unknown 05/19/2024 1:45 PM EDT [facility] Blood Venous blood specimen / Unknown Venipuncture / Unknown 05/19/2024 11:42 AM EDT 05/19/2024 12:00 PM EDT us Maite Austin MD LAB BLOOD ORDERABLES Final Resu lt Performing Organization Address City/[facility]/ZIP Co de Phone Number [facility] [address] [place] [address] * (ABNORMAL) Magnesium, Plasma (05/19/2024 11:42 AM EDT) Magnesium, Plasma 1.8(L) 1.9 - 2.4 mg/dL 05/19/2024 12:33 PM EDT [facility] Blood Venous blood specimen / Unknown Venipuncture / Unknown 05/19/2024 11:42 AM EDT 05/19/2024 12:00 PM EDT us Marybel Suarez APRN LAB BLOOD ORDERABLES Fin al Result Performing Organization Address [facility]/ZIP Co de Phone Number [facility] [address] [place] [address] * (ABNORMAL) Renal Function Panel, Plasma (05/19/2024 11:42 AM EDT) Glucose, Plasma 106(H) 74 - 99 mg/dL 05/19/2024 12:33 PM EDT [facility] BUN, Plasma 10 7 - 21 mg/dL 05/19/2024 12:33 PM EDT [facility] Creatinine, Plasma 0.91 0.60 - 1.10 mg/dL 05/19/2024 12:33 PM EDT [facility] BUN/Creatinine Ratio 11 05/19/2024 12:33 PM EDT [facility] Sodium, Plasma 143 136 - 145 mmol/L 05/19/2024 12:33 PM EDT [facility] Potassium, Plasma 4.1 3.6 - 4.9 mmol/L 05/19/2024 12:33 PM EDT [facility] Chloride, Plasma 115(H) 97 - 107 mmol/L 05/19/2024 12:33 PM EDT [facility] CO2, Plasma 19(L) 22 - 29 mmol/L 05/19/2024 12:33 PM EDT [facility] Anion Gap 9 6 - 16 mmol/L 05/19/2024 12:33 PM EDT [facility] Total Calcium, Plasma 6.7(L) 8.9 - 10.2 mg/dL 05/19/2024 12:33 PM EDT [facility] Phosphorus, Plasma 3.0 2.5 - 4.5 mg/dL 05/19/2024 12:33 PM EDT [facility] Albumin, Plasma 2.0(L) 3.5 - 5.2 g/dL 05/19/2024 12:33 PM EDT [facility] eGFRcr 75.1 mL/min/1.7 3m*2 05/19/2024 12:33 PM EDT [facility] Comment:Reported eGFRcr in m L/min/1.73m2 is based the CKD-EPI 2020 equation that does not use a race coefficient. Blood Venous blood specimen / Unknown Venipuncture / Unknown 05/19/2024 11:42 AM EDT 05/19/2024 12:00 PM EDT Marybel Suarez [employer]CEIV[employer]IST LAB BLOOD ORDERABLES Fin al Result [facility] [address] [place] [address] * XR Chest 1 View (05/19/2024 4:43 [...] APRN IMG XR PROCEDURES Final Result * [place] [facility], ADDL 30 MIN (05/19/2024 2:30 [...] - 2.4 mg/dL 05/19/2024 2:45 AM EDT [facility] Blood Venous blood specimen / Unknown Venipuncture / Unknown 05/19/2024 2:02 AM EDT 05/19/2024 2:12 AM EDT Marybel Suarez APRN LAB BLOOD ORDERABLES Fin al Result [facility] [address] [place] [address] * (ABNORMAL) Comprehensive metabolic panel (05/19/2024 2:02 AM EDT) Glucose, Plasma 140(H) 74 - 99 mg/dL 05/19/2024 2:45 AM EDT [facility] BUN, Plasma 9 7 - 21 mg/dL 05/19/2024 2:45 AM EDT [facility] Creatinine, Plasma 0.80 0.60 - 1.10 mg/dL 05/19/2024 2:45 AM EDT [facility] BUN/Creatinine Ratio 11 05/19/2024 2:45 AM EDT [facility] Sodium, Plasma 142 136 - 145 mmol/L 05/19/2024 2:45 AM EDT [facility] Potassium, Plasma 3.6 3.6 - 4.9 mmol/L 05/19/2024 2:45 AM EDT [facility] Chloride, Plasma 115(H) 97 - 107 mmol/L 05/19/2024 2:45 AM EDT [facility] CO2, Plasma 17(L) 22 - 29 mmol/L 05/19/2024 2:45 AM EDT [facility] Anion Gap 10 6 - 16 mmol/L 05/19/2024 2:45 AM EDT [facility] Total Calcium, Plasma 6.8(L) 8.9 - 10.2 mg/dL 05/19/2024 2:45 AM EDT [facility] Total Protein 5.5(L) 6.3 - 7.9 g/dL 05/19/2024 2:45 AM EDT [facility] Albumin, Plasma 2.1(L) 3.5 - 5.2 g/dL 05/19/2024 2:45 AM EDT [facility] AST, Plasma 53(H) 10 - 35 U/L 05/19/2024 2:45 AM EDT [facility] ALT, Plasma 23 10 - 35 U/L 05/19/2024 2:45 AM EDT [facility] Alkaline Phosphatase, Plasma 111(H) 35 - 104 U/L 05/19/2024 2:45 AM EDT [facility] Total Bilirubin, Plasma 1.1 0.2 - 1.1 mg/dL 05/19/2024 2:45 AM EDT [facility] eGFRcr 87.7 mL/min/1.7 3m*2 05/19/2024 2:45 AM EDT [facility] Comment:Reported eGFRcr in m L/min/1.73m2 is based the CKD-EPI 2020 equation that does not use a race coefficient. Blood Venous blood specimen / Unknown Venipuncture / Unknown 05/19/2024 2:02 AM EDT 05/19/2024 2:12 AM EDT Marybel Suarez APRN LAB BLOOD ORDERABLES Fin al Result [facility] [address] [place] [address] * (ABNORMAL) CBC and differential (05/19/2024 2:02 AM EDT) WBC Count 14.70(H) 3.70 - 10.30 10*3/uL LAB HEMATOLOGY METHOD 05/19/2024 3:26 AM EDT [facility] RBC Count 3.16(L) 3.90 - 5.20 10*6/uL LAB HEMATOLOGY METHOD 05/19/2024 3:26 AM EDT [facility] HGB 9.2(L) 11.2 - 15.7 g/dL LAB HEMATOLOGY METHOD 05/19/2024 3:26 AM EDT [facility] HCT 27.7(L) 34.0 - 45.0 % LAB HEMATOLOGY METHOD 05/19/2024 3:26 AM EDT [facility] Platelet Count 629(H) 155 - 369 10*3/uL LAB HEMATOLOGY METHOD 05/19/2024 3:26 AM EDT [facility] MCV 88 79 - 98 fL LAB HEMATOLOGY METHOD 05/19/2024 3:26 AM EDT [facility] MCH 29.1 26.0 - 32.0 pg LAB HEMATOLOGY METHOD 05/19/2024 3:26 AM EDT [facility] MCHC 33.2 30.7 - 35.5 g/dL LAB HEMATOLOGY METHOD 05/19/2024 3:26 AM EDT [facility] RDW 16.6(H) 11.5 - 14.5 % LAB HEMATOLOGY METHOD 05/19/2024 3:26 AM EDT [facility] MPV 9.7 8.8 - 12.5 fL LAB HEMATOLOGY METHOD 05/19/2024 3:26 AM EDT [facility] nRBC 0.0 <=0.0 per 100 WBCs LAB HEMATOLOGY METHOD 05/19/2024 3:26 AM EDT [facility] Differential Type Automated LAB HEMATOLOGY METHOD 05/19/2024 3:26 AM EDT [facility] Neutrophils % 74 % LAB HEMATOLOGY METHOD 05/19/2024 3:26 AM EDT [facility] Lymphocytes % 12 % LAB HEMATOLOGY METHOD 05/19/2024 3:26 AM EDT [facility] Monocytes % 10 % LAB HEMATOLOGY METHOD 05/19/2024 3:26 AM EDT [facility] Eosinophils % 1 % LAB HEMATOLOGY METHOD 05/19/2024 3:26 AM EDT [facility] Basophils % 1 % LAB HEMATOLOGY METHOD 05/19/2024 3:26 AM EDT [facility] Immature Granulocytes % 2 % LAB HEMATOLOGY METHOD 05/19/2024 3:26 AM EDT [facility] Neutrophils Absolute 10.82(H) 1.60 - 6.10 10*3/uL LAB HEMATOLOGY METHOD 05/19/2024 3:26 AM EDT [facility] Lymphocytes Absolute 1.83 1.20 - 3.90 10*3/uL LAB HEMATOLOGY METHOD 05/19/2024 3:26 AM EDT [facility] Monocytes Absolute 1.52(H) 0.30 - 0.90 10*3/uL LAB HEMATOLOGY METHOD 05/19/2024 3:26 AM EDT [facility] Eosinophils Absolute 0.20 0.00 - 0.50 10*3/uL LAB HEMATOLOGY METHOD 05/19/2024 3:26 AM EDT [facility] Basophils Absolute 0.11(H) 0.00 - 0.10 10*3/uL LAB HEMATOLOGY METHOD 05/19/2024 3:26 AM EDT [facility] Immature Granulocytes Absolute 0.22(H) 0.00 - 0.06 10*3/uL LAB HEMATOLOGY METHOD 05/19/2024 3:26 AM EDT [facility] Blood Venous blood specimen / Unknown Venipuncture / Unknown 05/19/2024 2:02 AM EDT 05/19/2024 2:12 AM EDT Narrative [facility] - 05/19/2024 3:26 AM EDT Therapeutic decision making should be based on absolute values, rather than percentages. us Maite Austin MD LAB BLOOD ORDERABLES Final Resu lt [facility] [address] [place] [address] * (ABNORMAL) POCT glucose meter (05/19/2024 1:28 AM EDT) POCT Glucose 160(H) 74 - 99 mg/dL [...] Comment 05/19/2024 1:30 AM EDT [facility] C.O.D. Biller ID Lesli Gardner 05/19/2024 1:30 AM EDT [facility] Device ID [id number] 05/19/2024 1:30 AM EDT [facility] Specimen Type POC Capillary 05/19/2024 1:30 AM EDT [facility] Blood Capillary blood specimen / Unknown 05/19/2024 1:28 AM EDT 05/19/2024 1:30 AM EDT us Maite Austin MD LAB POINT OF CARE TE ST DOCKED DEVICE UNSOLICITED RESULTS Final Result Performing Organization Address City/[facility]/ZIP Co de Phone Number [facility] [address] [place] [address] * POCT glucose meter (05/19/2024 1:10 AM EDT) POCT Glucose 84 74 - 99 mg/dL 05/19/2024 1:12 AM EDT [facility] Comment:Accuracy of a [...] 05/19/2024 1:12 AM EDT [facility] C.O.D. Biller ID Efren Lovell 05/20/19 1:12 AM EDT [facility] Device ID [id number] 05/19/2024 1:12 AM EDT [facility] Specimen Type POC Capillary 05/19/2024 1:12 AM EDT [facility] Blood Capillary blood specimen / Unknown 05/19/2024 1:10 AM EDT 05/19/2024 1:12 AM EDT Maite Austin MD LAB POINT OF CARE TE ST DOCKED DEVICE UNSOLICITED RESULTS Final Result Performing Organization Address City/State/[facility] Co de Phone Number [facility] [address] [place] [address] * PICC DOUBLE LUMEN (SMARTFORM LINK) (05/19/2024 12:50 AM EDT) Narrative Sundeep Holt RN - 05/19/2024 12:50 AM EDT Sundeep Holt RN 05/19/2024 1:26 AM Insert PICC line Performed by: Sundeep Holt RN Authorized by: Maite Austin MD [place] Protocol: Verbal consent obtained?: Yes Written consent obtained?: Yes Risks and benefits: Risks, benefits and alternatives were discussed Consent given by: Patient and power of film technician (Written Consent obtained by madalyn VAT/PICC RN [...] Left Location (Adult): Basilic vein (Largest vein, [id number] ratio 27%) Site selection rationale: RUE PIV and right radial arterial line. Patient position: Supine Catheter Lot #: [id number] Catheter microbiology technologist: Coinapult PICC Provena Catheter placed: Double lumen Catheter [...] VAT consult for PICC line for TPN. Dayshift VAT/PICC RN spoke with Sidney Jackson MD [...] placed on end of each lumen hub. [place] limb precaution armband placed on left wrist for PICC precautions while PICC is in place (No sticks/BP's). VAT consult completed. us Maite Austin MD IV THERAPY ORDERABLES Edited Re sult - Final * Comprehensive GI Panel by PCR (05/18/2024 11:47 PM EDT) Campylobacter PCR Result Not Detected Not Detected 05/19/2024 1:41 PM EDT [facility] Plesiomonas shigelloides PCR Result Not Detected Not Detected 05/19/2024 1:41 PM EDT [facility] Salmonella PCR Result Not Detected Not Detected 05/19/2024 1:41 PM EDT [facility] Vibrio species PCR Result Not Detected Not Detected 05/19/2024 1:41 PM EDT [facility] Vibrio cholerae PCR Result Not Detected Not Detected 05/19/2024 1:41 PM EDT [facility] Yersinia enterocolitica PCR Result Not Detected Not Detected 05/19/2024 1:41 PM EDT [facility] Enteroaggregative E. coli (EAEC) PCR Result Not Detected Not Detected 05/19/2024 1:41 PM EDT [facility] Enteropathogenic E. coli (EPEC) PCR Result Not Detected Not Detected 05/19/2024 1:41 PM EDT [facility] Enterotoxigenic E. coli (ETEC) lt/st PCR Result Not Detected Not Detected 05/19/2024 1:41 PM EDT [facility] Shiga-like Toxin-Producing E.coli (STEC) stx1/stx2 PCR Resu Not Detected Not Detected 05/19/2024 1:41 PM EDT [facility] E coli 0157 PCR Result Not Detected Not Detected 05/19/2024 1:41 PM EDT [facility] Shigella/Enteroinvas alexsandra E. coli (EIEC) PCR Result Not Detected Not Detected 05/19/2024 1:41 PM EDT [facility] Cryptosporidium PCR Result Not Detected Not Detected 05/19/2024 1:41 PM EDT [facility] Cyclospora cayetanensis PCR Result Not Detected Not Detected 05/19/2024 1:41 PM EDT [facility] Entamoeba histolytica PCR Result Not Detected Not Detected 05/19/2024 1:41 PM EDT [facility] Giardia duodenalis (aka Giardia lamblia) PCR Result Not Detected Not Detected 05/19/2024 1:41 PM EDT [facility] Adenovirus F 40/41 PCR Result Not Detected Not Detected 05/19/2024 1:41 PM EDT [facility] Astrovirus PCR Result Not Detected Not Detected 05/19/2024 1:41 PM EDT [facility] Norovirus GI/GII PCR Result Not Detected Not Detected 05/19/2024 1:41 PM EDT [facility] Rotavirus A PCR Result Not Detected Not Detected 05/19/2024 1:41 PM EDT [facility] Sapovirus PCR Result Not Detected Not Detected 05/19/2024 1:41 PM EDT [facility] Stool Rectum structure / Unknown Non-blood Collection / Unknown 05/18/2024 11:47 PM EDT 05/19/2024 2:07 AM EDT Narrative [facility] - 05/19/2024 1:41 PM EDT [...] indicated. Marybel Suarez APRN LAB MICROBIOLOGY - [facility] AL ORDERABLES Final Result [facility] [address] [place] [address] * Clostridiodes (Clostridium) difficile PCR (05/18/2024 11:47 PM EDT) C difficile PCR toxin B gene DNA Result Not Detected Not Detected 05/19/2024 7:36 AM EDT [facility] Stool Rectum structure / Unknown Non-blood Collection / Unknown 05/18/2024 11:47 PM EDT 05/19/2024 2:07 AM EDT Narrative [facility] - 05/19/2024 7:36 AM EDT [...] MICROBIOLOGY - GENER AL ORDERABLES Final Result Performing Organization Address City/[facility]/ZIP Co de Phone Number [facility] [address] [place] [address] * POCT glucose meter (05/18/2024 11:21 PM EDT) [facility] POCT Glucose 97 74 - 99 mg/dL [...] Comment 05/18/2024 11:23 PM EDT [facility] C.O.D. Biller ID Lesli Gardner 05/18/2024 11:23 PM EDT [facility] Device ID [id number] 05/18/2024 11:23 PM EDT [facility] Specimen Type POC Capillary 05/18/2024 11:23 PM EDT [facility] Blood Capillary blood specimen / Unknown 05/18/2024 11:21 PM EDT 05/18/2024 11:23 PM EDT us Maite Austin MD LAB POINT OF CARE TE ST DOCKED DEVICE UNSOLICITED RESULTS Final Result Performing Organization Address City/[facility]/ZIP Co de Phone Number [facility] [address] [place] [address] * (ABNORMAL) POCT glucose meter (05/18/2024 5:55 PM EDT) POCT Glucose 114(H) 74 - 99 [...] Comment 05/18/2024 5:57 PM EDT [facility] C.O.D. Biller ID Theresa Hairston 5:57 PM EDT [facility] Device ID [id number] 05/18/2024 5:57 PM EDT [facility] Specimen Type POC Arterial 05/18/2024 5:57 PM EDT [facility] Blood Arterial blood specimen / Unknown 05/18/2024 5:55 PM EDT 05/18/2024 5:57 PM EDT us Maite Austin MD LAB POINT OF CARE TE ST DOCKED DEVICE UNSOLICITED RESULTS Final Result [facility] [address] [place] [address] * [place] CRITICAL CARE, E/M 30-74 MINUTES (05/18/2024 2:28 PM EDT) Narrative Dieudonne Cramer MD - 05/18/2024 2:28 PM EDT Dieudonne Cramer MD 05/18/2024 2:31 PM Critical Care Performed by: Dieudonne Craemr MD Authorized by: Dieudonne Cramer MD Critical [...] - 99 mg/dL 05/18/2024 2:07 PM EDT [facility] Comment:Accuracy of [...] Comment 05/18/2024 2:07 PM EDT [facility] C.O.D. Biller ID Theresa Hairston 2:07 PM EDT [facility] Device ID [id number] 05/18/2024 2:07 PM EDT [facility] Specimen Type POC Arterial 05/18/2024 2:07 PM EDT [facility] Blood Arterial blood specimen / Unknown 05/18/2024 2:06 PM EDT 05/18/2024 2:07 PM EDT us Maite Austin MD LAB POINT OF CARE TE ST DOCKED DEVICE UNSOLICITED RESULTS Final Result Performing Organization Address City/State/[facility] Co de Phone Number [facility] [address] [place], [place] [id number] * [place] Upper GI (05/18/2024 11:25 AM EDT) Anatomical Region Laterality Modality Esophagus, stomach and duodenum Digital Radiography Impressions 05/18/2024 12:14 PM EDT No evidence of leak from the stomach Gastroesophageal reflux CRITICAL RESULT: No. COMMUNICATION: Per this written report. Drafted by Giovanni Shi MD on 05/18/2024 12:12 PM Final report signed by Giovanni Shi MD on 05/18/2024 12:14 PM Narrative [...] Maite Austin MD IMG FLUOROSCOPY PROCEDURES Namrata otto Result * (ABNORMAL) POCT glucose meter (05/18/2024 [...] for testing. Comment 05/18/2024 9:30 AM EDT [facility] C.O.D. Biller ID Theresa Hairston 9:30 AM EDT [facility] Device ID [id number] 05/18/2024 9:30 AM EDT [facility] Specimen Type POC Arterial 05/18/2024 9:30 AM EDT [facility] Blood Arterial blood specimen / Unknown 05/18/2024 9:29 AM EDT 05/18/2024 9:30 AM EDT us Maite Austin MD LAB POINT OF CARE TE ST DOCKED DEVICE UNSOLICITED RESULTS Final Result Performing Organization Address City/[facility]/ZIP Co de Phone Number [facility] [address] [place] [address] * Magnesium (05/18/2024 4:00 AM EDT) Magnesium, Plasma 2.3 1.9 - 2.4 mg/dL 05/18/2024 7:11 AM EDT [facility] Blood Arterial blood specimen / Unknown Venipuncture / Unknown 05/18/2024 4:00 AM EDT 05/18/2024 4:31 AM EDT us Maite Austin MD LAB BLOOD ORDERABLES Final Resu lt Performing Organization Address City/[facility] Co de Phone Number [facility] [address] [place] [address] * Phosphorus (05/18/2024 4:00 AM EDT) Phosphorus, Plasma 3.0 2.5 - 4.5 mg/dL 05/18/2024 7:11 AM EDT [facility] Blood Arterial blood specimen / Unknown Venipuncture / Unknown 05/18/2024 4:00 AM EDT 05/18/2024 4:31 AM EDT us Maite Austin MD LAB BLOOD ORDERABLES Final Resu lt Performing Organization Address City/[facility]/ZIP Co de Phone Number [facility] [address] [place] [address] * (ABNORMAL) Hepatic function panel (05/18/2024 4:00 AM EDT) Conjugated Bilirubin, Plasma 0.6(H) <=0.3 mg/dL 05/18/2024 5:04 AM EDT [facility] Alkaline Phosphatase, Plasma 113(H) 35 - 104 U/L 05/18/2024 5:04 AM EDT [facility] Total Bilirubin, Plasma 1.1 0.2 - 1.1 mg/dL 05/18/2024 5:04 AM EDT [facility] Albumin, Plasma 2.1(L) 3.5 - 5.2 g/dL 05/18/2024 5:04 AM EDT [facility] Total Protein 5.5(L) 6.3 - 7.9 g/dL 05/18/2024 5:04 AM EDT [facility] ALT, Plasma 24 10 - 35 U/L 05/18/2024 5:04 AM EDT [facility] AST, Plasma 53(H) 10 - 35 U/L 05/18/2024 5:04 AM EDT [facility] Blood Arterial blood specimen / Unknown Venipuncture / Unknown 05/18/2024 4:00 AM EDT 05/18/2024 4:31 AM EDT us Edson Mcclure DO LAB BLOOD ORDERABLES Final R esult Performing Organization Address City/[facility]/ZIP Co de Phone Number [facility] [address] [place] [address] * (ABNORMAL) GGT (05/18/2024 4:00 AM EDT) GGT, Plasma 105(H) 5 - 36 U/L 05/18/2024 5:04 AM EDT [facility] Blood Arterial blood specimen / Unknown Venipuncture / Unknown 05/18/2024 4:00 AM EDT 05/18/2024 4:31 AM EDT us Edson Mcclure DO LAB BLOOD ORDERABLES Final R esult [facility] [address] [place] [address] * (ABNORMAL) Amylase, Plasma (05/18/2024 4:00 AM EDT) Amylase 129(H) 27 - 114 U/L 05/18/2024 5:04 AM EDT [facility] Blood Arterial blood specimen / Unknown Venipuncture / Unknown 05/18/2024 4:00 AM EDT 05/18/2024 4:31 AM EDT Edson Evans [employer] LAB BLOOD ORDERABLES Final R esult Performing Organization Address City/[facility]/ZIP Co de Phone Number [facility] [address] [place] [address] * (ABNORMAL) Lipase (05/18/2024 4:00 AM EDT) Lipase, Plasma 92(H) 19 - 63 U/L 05/18/2024 5:04 AM EDT [facility] Blood Arterial blood specimen / Unknown Venipuncture / Unknown 05/18/2024 4:00 AM EDT 05/18/2024 4:31 AM EDT Edson Mcclure DO LAB BLOOD ORDERABLES Final R esult Performing Organization Address City/[facility]/ZIP Co de Phone Number [facility] [address] [place] [address] * (ABNORMAL) Blood gas panel, arterial (05/18/2024 4:00 AM EDT) pH, Arterial 7.45 7.35 - 7.45 LAB HEMATOLOGY METHOD 05/18/2024 4:13 AM EDT [facility] pCO2, Arterial 28(L) 35 - 48 mmHg LAB HEMATOLOGY METHOD 05/18/2024 4:13 AM EDT [facility] pO2, Arterial 72(L) 83 - 108 mmHg LAB HEMATOLOGY METHOD 05/18/2024 4:13 AM EDT [facility] SO2, Measured, Arterial 95 94 - 98 % LAB HEMATOLOGY METHOD 05/18/2024 4:13 AM EDT [facility] Base Excess, Arterial -3.6(L) -2.0 - 3.0 mmol/L LAB HEMATOLOGY METHOD 05/18/2024 4:13 AM EDT [facility] Bicarbonate, Calculated, Arterial 20(L) 22 - 26 mmol/L LAB HEMATOLOGY METHOD 05/18/2024 4:13 AM EDT [facility] Hematocrit, Whole Blood 30.1(L) 34.0 - 45.0 % LAB HEMATOLOGY METHOD 05/18/2024 4:13 AM EDT [facility] Sodium, Whole Blood 142 136 - 145 mmol/L LAB HEMATOLOGY METHOD 05/18/2024 4:13 AM EDT [facility] Potassium, Whole Blood 3.7 3.6 - 4.9 mmol/L LAB HEMATOLOGY METHOD 05/18/2024 4:13 AM EDT [facility] Chloride, Whole Blood 116(H) 97 - 107 mmol/L LAB HEMATOLOGY METHOD 05/18/2024 4:13 AM EDT [facility] Glucose, Whole Blood 110(H) 74 - 99 mg/dL LAB HEMATOLOGY METHOD 05/18/2024 4:13 AM EDT [facility] Ionized Calcium, Whole Blood 4.2(L) 4.6 - 5.1 mg/dL LAB HEMATOLOGY METHOD 05/18/2024 4:13 AM EDT [facility] Lactate, Arterial, Whole Blood 1.3 0.5 - 1.6 mmol/L LAB HEMATOLOGY METHOD 05/18/2024 4:13 AM EDT [facility] Blood Arterial blood specimen / Unknown Arterial Puncture / Unknown 05/18/2024 4:00 AM EDT 05/18/2024 4:12 AM EDT Marybel Suarez APRN LAB BLOOD ORDERABLES Fin al Result [facility] [address] [place] [address] * (ABNORMAL) POCT glucose meter (05/18/2024 3:59 AM EDT) [facility] POCT Glucose 119(H) 74 - 99 mg/dL [...] Comment 05/18/2024 4:01 AM EDT [facility] C.O.D. Biller ID Linda Amor 05/19/19 4:01 AM EDT [facility] Device ID [id number] 05/18/2024 4:01 AM EDT [facility] Specimen Type POC Arterial 05/18/2024 4:01 AM EDT [facility] Blood Arterial blood specimen / Unknown 05/18/2024 3:59 AM EDT 05/18/2024 4:01 AM EDT Maite Austin MD LAB POINT OF CARE TE ST DOCKED DEVICE UNSOLICITED RESULTS Final Result [facility] [address] [place] [address] * XR Chest 1 View (05/18/2024 2:30 [...] MD on 05/18/2024 2:52 AM [facility] PROCED[facility] Final Result * CT Abdomen [...] Total DLP (Dose-Length Product): 1602.32 mGy.cm (accession [id number]), 1602.32 mGy.cm (accession [id number]). Please note: The reported value represents the [...] Total DLP (Dose-Length Product): 1602.32 mGy.cm (accession [id number]),1602.32 mGy.cm (accession [id number]). Please note: The reported valuerepresents the total [...] APRN IMG CT PROCEDURES Final Result * CT Chest [...] Total DLP (Dose-Length Product): 1602.32 mGy.cm (accession [id number]), 1602.32 mGy.cm (accession [id number]). Please note: The reported value represents the [...] Total DLP (Dose-Length Product): 1602.32 mGy.cm (accession [id number]),1602.32 mGy.cm (accession [id number]). Please note: The reported valuerepresents the total [...] - 2.4 mg/dL 05/18/2024 12:55 AM EDT [facility] Blood Arterial blood specimen / Unknown Venipuncture / Unknown 05/18/2024 12:20 AM EDT 05/18/2024 12:25 AM EDT Marybel Suarez APRN LAB BLOOD ORDERABLES Fin al Result [facility] [address] [place] [address] * (ABNORMAL) Comprehensive metabolic panel (05/18/2024 12:20 AM EDT) Glucose, Plasma 112(H) 74 - 99 mg/dL 05/18/2024 12:55 AM EDT [facility] BUN, Plasma 13 7 - 21 mg/dL 05/18/2024 12:55 AM EDT [facility] Creatinine, Plasma 0.77 0.60 - 1.10 mg/dL 05/18/2024 12:55 AM EDT [facility] BUN/Creatinine Ratio 17 05/18/2024 12:55 AM EDT [facility] Sodium, Plasma 143 136 - 145 mmol/L 05/18/2024 12:55 AM EDT [facility] Potassium, Plasma 4.2 3.6 - 4.9 mmol/L 05/18/2024 12:55 AM EDT [facility] Chloride, Plasma 115(H) 97 - 107 mmol/L 05/18/2024 12:55 AM EDT [facility] CO2, Plasma 19(L) 22 - 29 mmol/L 05/18/2024 12:55 AM EDT [facility] Anion Gap 9 6 - 16 mmol/L 05/18/2024 12:55 AM EDT [facility] Total Calcium, Plasma 7.5(L) 8.9 - 10.2 mg/dL 05/18/2024 12:55 AM EDT [facility] Total Protein 5.6(L) 6.3 - 7.9 g/dL 05/18/2024 12:55 AM EDT [facility] Albumin, Plasma 2.1(L) 3.5 - 5.2 g/dL 05/18/2024 12:55 AM EDT [facility] AST, Plasma 61(H) 10 - 35 U/L 05/18/2024 12:55 AM EDT [facility] ALT, Plasma 27 10 - 35 U/L 05/18/2024 12:55 AM EDT [facility] Alkaline Phosphatase, Plasma 115(H) 35 - 104 U/L 05/18/2024 12:55 AM EDT [facility] Total Bilirubin, Plasma 1.1 0.2 - 1.1 mg/dL 05/18/2024 12:55 AM EDT [facility] eGFRcr 91.8 mL/min/1.7 3m*2 05/18/2024 12:55 AM EDT [facility] Comment:Reported eGFRcr in m L/min/1.73m2 is based the CKD-EPI 2020 equation that does not use a race coefficient. Blood Arterial blood specimen / Unknown Venipuncture / Unknown 05/18/2024 12:20 AM EDT 05/18/2024 12:25 AM EDT us Marybel Suarez APRN LAB BLOOD ORDERABLES Fin al Result [facility] [address] [place] [address] * (ABNORMAL) CBC and differential (05/18/2024 12:20 AM EDT) WBC Count 14.70(H) 3.70 - 10.30 10*3/uL LAB HEMATOLOGY METHOD 05/18/2024 1:36 AM EDT [facility] RBC Count 3.31(L) 3.90 - 5.20 10*6/uL LAB HEMATOLOGY METHOD 05/18/2024 1:36 AM EDT [facility] HGB 9.6(L) 11.2 - 15.7 g/dL LAB HEMATOLOGY METHOD 05/18/2024 1:36 AM EDT [facility] HCT 29.0(L) 34.0 - 45.0 % LAB HEMATOLOGY METHOD 05/18/2024 1:36 AM EDT [facility] Platelet Count 590(H) 155 - 369 10*3/uL LAB HEMATOLOGY METHOD 05/18/2024 1:36 AM EDT [facility] MCV 88 79 - 98 fL LAB HEMATOLOGY METHOD 05/18/2024 1:36 AM EDT [facility] MCH 29.0 26.0 - 32.0 pg LAB HEMATOLOGY METHOD 05/18/2024 1:36 AM EDT [facility] MCHC 33.1 30.7 - 35.5 g/dL LAB HEMATOLOGY METHOD 05/18/2024 1:36 AM EDT [facility] RDW 17.0(H) 11.5 - 14.5 % LAB HEMATOLOGY METHOD 05/18/2024 1:36 AM EDT [facility] MPV 9.8 8.8 - 12.5 fL LAB HEMATOLOGY METHOD 05/18/2024 1:36 AM EDT [facility] nRBC 0.1(H) <=0.0 per 100 WBCs LAB HEMATOLOGY METHOD 05/18/2024 1:36 AM EDT [facility] Differential Type Automated LAB HEMATOLOGY METHOD 05/18/2024 1:36 AM EDT [facility] Neutrophils % 77 % LAB HEMATOLOGY METHOD 05/18/2024 1:36 AM EDT [facility] Lymphocytes % 11 % LAB HEMATOLOGY METHOD 05/18/2024 1:36 AM EDT [facility] Monocytes % 8 % LAB HEMATOLOGY METHOD 05/18/2024 1:36 AM EDT [facility] Eosinophils % 1 % LAB HEMATOLOGY METHOD 05/18/2024 1:36 AM EDT [facility] Basophils % 1 % LAB HEMATOLOGY METHOD 05/18/2024 1:36 AM EDT [facility] Immature Granulocytes % 2 % LAB HEMATOLOGY METHOD 05/18/2024 1:36 AM EDT [facility] Neutrophils Absolute 11.39(H) 1.60 - 6.10 10*3/uL LAB HEMATOLOGY METHOD 05/18/2024 1:36 AM EDT [facility] Lymphocytes Absolute 1.67 1.20 - 3.90 10*3/uL LAB HEMATOLOGY METHOD 05/18/2024 1:36 AM EDT [facility] Monocytes Absolute 1.20(H) 0.30 - 0.90 10*3/uL LAB HEMATOLOGY METHOD 05/18/2024 1:36 AM EDT [facility] Eosinophils Absolute 0.09 0.00 - 0.50 10*3/uL LAB HEMATOLOGY METHOD 05/18/2024 1:36 AM EDT [facility] Basophils Absolute 0.08 0.00 - 0.10 10*3/uL LAB HEMATOLOGY METHOD 05/18/2024 1:36 AM EDT [facility] Immature Granulocytes Absolute 0.27(H) 0.00 - 0.06 10*3/uL LAB HEMATOLOGY METHOD 05/18/2024 1:36 AM EDT [facility] Blood Arterial blood specimen / Unknown Venipuncture / Unknown 05/18/2024 12:20 AM EDT 05/18/2024 12:25 AM EDT Narrative [facility] - 05/18/2024 1:36 AM EDT Therapeutic decision making should be based on absolute values, rather than percentages. us Maite Austin MD LAB BLOOD ORDERABLES Final Resu lt [facility] [address] [place] [address] * (ABNORMAL) POCT glucose meter (05/18/2024 12:19 AM EDT) POCT Glucose 109(H) 74 - 99 mg/dL 05/18/2024 12:21 AM EDT [facility] Comment:Accuracy of [...] Comment 05/18/2024 12:21 AM EDT [facility] C.O.D. Biller ID Linda Amor 05/19/19 12:21 AM EDT [facility] Device ID [id number] 05/18/2024 12:21 AM EDT [facility] Specimen Type POC Arterial 05/18/2024 12:21 AM EDT [facility] Blood Arterial blood specimen / Unknown 05/18/2024 12:19 AM EDT 05/18/2024 12:21 AM EDT Maite Austin MD LAB POINT OF CARE ST DOCKED DEVICE UNSOLICITED RESULTS Final Result Performing Organization Address [facility] de Phone Number [facility] [address] [place] [address] * Methicillin Resistant Staphylococcus aureus (MRSA) by PCR (05/17/2024 10:58 PM EDT) Pathologist [facility] Methicillin Resistant Staphylococcus aureus (MRSA) by PCR Not Detected Not Detected 05/18/2024 12:44 AM EDT [facility] Swab Both anterior nares / Unknown Non-blood Collection / Unknown 05/17/2024 10:58 PM EDT 05/17/2024 11:21 PM EDT Narrative [facility] - 05/18/2024 12:44 AM EDT [...] MICROBIOLOGY - GENER AL ORDERABLES Final Result Performing Organization Address City/[facility]/ZIP Co de Phone Number [facility] [address] [place] [address] * POCT glucose meter (05/17/2024 7:24 PM EDT) [facility] POCT Glucose 99 74 - 99 mg/dL 05/17/2024 7:48 PM EDT [facility] Comment:Accuracy of a [...] for testing. Comment 05/17/2024 7:48 PM EDT [facility] C.O.D. Biller ID Linda Amor 05/18/19 7:48 PM EDT [facility] LAB Device ID [id number] 05/17/2024 7:48 PM EDT [facility] Specimen Type POC Arterial 05/17/2024 7:48 PM EDT [facility] Blood Arterial blood specimen / Unknown 05/17/2024 7:24 PM EDT 05/17/2024 7:48 PM EDT us Maite Austin MD LAB POINT OF CARE TE ST DOCKED DEVICE UNSOLICITED RESULTS Final Result [facility] [address] [place] [address] * (ABNORMAL) CBC and differential (05/17/2024 6:13 PM EDT) [facility] WBC Count 13.62(H) 3.70 - 10.30 10*3/uL LAB HEMATOLOGY METHOD 05/17/2024 7:48 PM EDT [facility] RBC Count 3.35(L) 3.90 - 5.20 10*6/uL LAB HEMATOLOGY METHOD 05/17/2024 7:48 PM EDT [facility] HGB 9.7(L) 11.2 - 15.7 g/dL LAB HEMATOLOGY METHOD 05/17/2024 7:48 PM EDT [facility] HCT 29.7(L) 34.0 - 45.0 % LAB HEMATOLOGY METHOD 05/17/2024 7:48 PM EDT [facility] Platelet Count 607(H) 155 - 369 10*3/uL LAB HEMATOLOGY METHOD 05/17/2024 7:48 PM EDT [facility] MCV 89 79 - 98 fL LAB HEMATOLOGY METHOD 05/17/2024 7:48 PM EDT [facility] MCH 29.0 26.0 - 32.0 pg LAB HEMATOLOGY METHOD 05/17/2024 7:48 PM EDT [facility] MCHC 32.7 30.7 - 35.5 g/dL LAB HEMATOLOGY METHOD 05/17/2024 7:48 PM EDT [facility] RDW 17.2(H) 11.5 - 14.5 % LAB HEMATOLOGY METHOD 05/17/2024 7:48 PM EDT [facility] MPV 10.1 8.8 - 12.5 fL LAB HEMATOLOGY METHOD 05/17/2024 7:48 PM EDT [facility] nRBC 0.1(H) <=0.0 per 100 WBCs LAB HEMATOLOGY METHOD 05/17/2024 7:48 PM EDT [facility] Differential Type Automated LAB HEMATOLOGY METHOD 05/17/2024 7:48 PM EDT [facility] Neutrophils % 80 % LAB HEMATOLOGY METHOD 05/17/2024 7:48 PM EDT [facility] Lymphocytes % 9 % LAB HEMATOLOGY METHOD 05/17/2024 7:48 PM EDT [facility] Monocytes % 8 % LAB HEMATOLOGY METHOD 05/17/2024 7:48 PM EDT [facility] Eosinophils % 0 % LAB HEMATOLOGY METHOD 05/17/2024 7:48 PM EDT [facility] Basophils % 0 % LAB HEMATOLOGY METHOD 05/17/2024 7:48 PM EDT [facility] Immature Granulocytes % 3 % LAB HEMATOLOGY METHOD 05/17/2024 7:48 PM EDT [facility] Neutrophils Absolute 10.86(H) 1.60 - 6.10 10*3/uL LAB HEMATOLOGY METHOD 05/17/2024 7:48 PM EDT [facility] Lymphocytes Absolute 1.27 1.20 - 3.90 10*3/uL LAB HEMATOLOGY METHOD 05/17/2024 7:48 PM EDT [facility] Monocytes Absolute 1.04(H) 0.30 - 0.90 10*3/uL LAB HEMATOLOGY METHOD 05/17/2024 7:48 PM EDT [facility] Eosinophils Absolute 0.04 0.00 - 0.50 10*3/uL LAB HEMATOLOGY METHOD 05/17/2024 7:48 PM EDT [facility] Basophils Absolute 0.06 0.00 - 0.10 10*3/uL LAB HEMATOLOGY METHOD 05/17/2024 7:48 PM EDT [facility] Immature Granulocytes Absolute 0.35(H) 0.00 - 0.06 10*3/uL LAB HEMATOLOGY METHOD 05/17/2024 7:48 PM EDT [facility] Blood Venous blood specimen / Unknown Venipuncture / Unknown 05/17/2024 6:13 PM EDT 05/17/2024 6:32 PM EDT Narrative [facility] - 05/17/2024 7:48 PM EDT Therapeutic decision making should be based on absolute values, rather than percentages. us Maite Austin MD LAB BLOOD ORDERABLES Final Resu lt [facility] [address] [place] [address] * AFB Blood Culture (05/17/2024 6:13 PM EDT) AFB Culture No Mycobacterial Growth at 6 Weeks 07/06/2024 5:16 PM EDT [facility] Blood Venous blood specimen / Unknown Venipuncture / Unknown 05/17/2024 6:13 PM EDT 05/17/2024 6:32 PM EDT us Lora Llanes APRN LAB MICROBIOLOGY - GENERAL ORDERABLES Final Result [facility] [address] [place] [address] * Fungal Blood Culture (05/17/2024 6:13 PM EDT) Culture No Fungal Growth at 6 Weeks 07/07/2024 11:43 AM EDT [facility] Blood Venous blood specimen / Unknown Venipuncture / Unknown 05/17/2024 6:13 PM EDT 05/17/2024 6:32 PM EDT us Lora Seymour Shraddha ACCOUNTS RECEIVABLE SPECIALIST LAB MICROBIOLOGY - GENERAL ORDERABLES Final Result [facility] [address] [place] [address] * Beta Glucan (Fungitel), Serum (05/17/2024 6:13 PM EDT) Beta Glucan (Fungitell) 43 <80 pg/mL 05/19/2024 4:58 PM EDT [facility] (GAMALIEL) Comment: Interpretation: The Fungitell assay does not detect certain fungal species such as the genus Cryptococcus (Rica et al. 1991) which produces very low levels of (1-3)-Xktc-C-Aiymtn. The assay also does not detect the Zygomycetes such as Absidia, Mucor and Rhizopus (Stacey et al. 1994) which are not known to produce (1-3)-Nazo-F-Bfggaz. In addition, the yeast phase of Blastomyces dermatitidis produces little (1-3)-Xmwu-D-Txagor and may not be detected by the [...] characteristics for these modifications were determined by [facility]. If sample result is greater than 500 pg/mL, physician may order a titer of the sample. Please contact [facility] if you would like to order a retest of this sample to obtain an actual value. Samples are held for 1 week after initial testing date. Testing Performed at: [facility] [address] [place] [address], [address] [place] [address] Director Of Radiology: Clayton Mata, PhD [place] ([place]) [place] # [id number] FLAG Interpretation: A = Abnormal, H = High, L = Low Blood Venous blood specimen / Unknown Venipuncture / Unknown 05/17/2024 6:13 PM EDT 05/17/2024 6:27 PM EDT Narrative KWABENA (GAMALIEL) - 05/19/2024 4:58 PM EDT Release to patient in [facility]->Immediate us Lora Llanes ACCOUNTS RECEIVABLE SPECIALIST LAB BLOOD ORDERABLES Final Result KW[facility]ENA GALAVIZ) * [facility], E/M 30-74 MINUTES (05/17/2024 4:40 [...] LAB HEMATOLOGY METHOD 05/17/2024 3:27 PM EDT [facility] pCO2, Arterial 28(L) 35 - 48 mmHg LAB HEMATOLOGY METHOD 05/17/2024 3:27 PM EDT [facility] pO2, Arterial 114(H) 83 - 108 mmHg LAB HEMATOLOGY METHOD 05/17/2024 3:27 PM EDT [facility] SO2, Measured, Arterial 98 94 - 98 % LAB HEMATOLOGY METHOD 05/17/2024 3:27 PM EDT [facility] Base Excess, Arterial -5.0(L) -2.0 - 3.0 mmol/L LAB HEMATOLOGY METHOD 05/17/2024 3:27 PM EDT [facility] Bicarbonate, Calculated, Arterial 18(L) 22 - 26 mmol/L LAB HEMATOLOGY METHOD 05/17/2024 3:27 PM EDT [facility] Hematocrit, Whole Blood 31.9(L) 34.0 - 45.0 % LAB HEMATOLOGY METHOD 05/17/2024 3:27 PM EDT [facility] Sodium, Whole Blood 146(H) 136 - 145 mmol/L LAB HEMATOLOGY METHOD 05/17/2024 3:27 PM EDT [facility] Potassium, Whole Blood 3.9 3.6 - 4.9 mmol/L LAB HEMATOLOGY METHOD 05/17/2024 3:27 PM EDT [facility] Chloride, Whole Blood 118(H) 97 - 107 mmol/L LAB HEMATOLOGY METHOD 05/17/2024 3:27 PM EDT [facility] Glucose, Whole Blood 67(L) 74 - 99 mg/dL LAB HEMATOLOGY METHOD 05/17/2024 3:27 PM EDT [facility] Ionized Calcium, Whole Blood 4.2(L) 4.6 - 5.1 mg/dL LAB HEMATOLOGY METHOD 05/17/2024 3:27 PM EDT [facility] Lactate, Arterial, Whole Blood 1.3 0.5 - 1.6 mmol/L LAB HEMATOLOGY METHOD 05/17/2024 3:27 PM EDT [facility] Blood Arterial blood specimen / Unknown Arterial Puncture / Unknown 05/17/2024 3:14 PM EDT 05/17/2024 3:26 PM EDT us Maite Austin MD LAB BLOOD ORDERABLES Final Resu lt Performing Organization Address [facility] Co de Phone Number [facility] [address] [place] [address] * (ABNORMAL) Procalcitonin (05/17/2024 3:08 PM EDT) Procalcitonin, Plasma 0.46(H) <0.09 ng/mL 05/17/2024 7:40 PM EDT [facility] Blood Venous blood specimen / Unknown Venipuncture / Unknown 05/17/2024 3:08 PM EDT 05/17/2024 3:37 PM EDT Narrative [facility] - 05/17/2024 7:40 PM EDT [...] predict 28 day mortality risk. Please consult [email or web address] for more information. Test performed at [facility], [facility]. us Marybel Suarez APRN LAB BLOOD ORDERABLES Fin al Result Performing Organization Address City/[facility]/ZIP Co de Phone Number [facility] [address] [place] [address] * Phosphorus (05/17/2024 3:08 PM EDT) Phosphorus, Plasma 3.5 2.5 - 4.5 mg/dL 05/17/2024 4:07 PM EDT [facility] Blood Venous blood specimen / Unknown Venipuncture / Unknown 05/17/2024 3:08 PM EDT 05/17/2024 3:37 PM EDT us Maite Austin MD LAB BLOOD ORDERABLES Final Resu lt [facility] [address] [place] [address] * (ABNORMAL) Basic metabolic panel (05/17/2024 3:08 PM EDT) Glucose, Plasma 68(L) 74 - 99 mg/dL 05/17/2024 4:07 PM EDT [facility] BUN, Plasma 14 7 - 21 mg/dL 05/17/2024 4:07 PM EDT [facility] Creatinine, Plasma 0.75 0.60 - 1.10 mg/dL 05/17/2024 4:07 PM EDT [facility] BUN/Creatinine Ratio 19 05/17/2024 4:07 PM EDT [facility] Sodium, Plasma 146(H) 136 - 145 mmol/L 05/17/2024 4:07 PM EDT [facility] Potassium, Plasma 4.1 3.6 - 4.9 mmol/L 05/17/2024 4:07 PM EDT [facility] Chloride, Plasma 115(H) 97 - 107 mmol/L 05/17/2024 4:07 PM EDT [facility] CO2, Plasma 17(L) 22 - 29 mmol/L 05/17/2024 4:07 PM EDT [facility] Anion Gap 14 6 - 16 mmol/L 05/17/2024 4:07 PM EDT [facility] Total Calcium, Plasma 7.4(L) 8.9 - 10.2 mg/dL 05/17/2024 4:07 PM EDT [facility] eGFRcr 94.7 mL/min/1.7 3m*2 05/17/2024 4:07 PM EDT [facility] Comment:Reported eGFRcr in m L/min/1.73m2 is based the CKD-EPI 2020 equation that does not use a race coefficient. Blood Venous blood specimen / Unknown Venipuncture / Unknown 05/17/2024 3:08 PM EDT 05/17/2024 3:37 PM EDT us Maite Austin MD LAB BLOOD ORDERABLES Final Resu lt [facility] [address] [place] [address] * (ABNORMAL) TEG Global Hemostasis with Heparinase (05/17/2024 3:08 PM EDT) R 8.7 4.6 - 9.1 min 05/17/2024 3:56 PM EDT [facility] R, Heparinase 7.2 4.3 - 8.3 min 05/17/2024 3:56 PM EDT [facility] K 2.0 0.8 - 2.1 min 05/17/2024 3:56 PM EDT [facility] Angle 72.5 63.0 - 78.0 degrees 05/17/2024 3:56 PM EDT [facility] MA 72.2(H) 52.0 - 69.0 mm 05/17/2024 3:56 PM EDT [facility] MA, Rapid 74.4(H) 52.0 - 70.0 mm 05/17/2024 3:56 PM EDT [facility] MA, Fibrinogen 48.4(H) 15.0 - 32.0 mm 05/17/2024 3:56 PM EDT [facility] FLEV 883.2(H) 278.0 - 581.0 mg/dl 05/17/2024 3:56 PM EDT [facility] Blood Venous blood specimen / Unknown Venipuncture / Unknown 05/17/2024 3:08 PM EDT 05/17/2024 3:26 PM EDT us Maite Austin MD LAB BLOOD ORDERABLES Final Resu lt [facility] [address] [place] [address] * Anti Xa Level Unfractionated Heparin (05/17/2024 3:08 PM EDT) Anti Xa Level Unfractionated Heparin <0.11 <1.00 IU/mL LAB COAGULATION METHOD 05/17/2024 4:06 PM EDT [facility] Blood Venous blood specimen / Unknown Venipuncture / Unknown 05/17/2024 3:08 PM EDT 05/17/2024 3:37 PM EDT Narrative [facility] - 05/17/2024 4:06 PM EDT Therapeutic Range: UFH Full Dose and ACS/NM protocols*: 0.30 - 0.70 IU/mL UFH Low Dose protocol*: 0.25 - 0.50 IU/mL UFH prophylaxis: Not established us Maite Austin MD LAB BLOOD ORDERABLES Final Resu lt Performing Organization Address [facility] Co de Phone Number [facility] [address] [place] [address] * (ABNORMAL) Protime-INR (05/17/2024 3:08 PM EDT) [facility] Prothrombin Time 20.2(H) 12.0 - 14.3 sec LAB COAGULATION METHOD 05/17/2024 4:06 PM EDT [facility] INR 1.7(H) 0.9 - 1.1 LAB COAGULATION METHOD 05/17/2024 4:06 PM EDT [facility] Blood Venous blood specimen / Unknown Venipuncture / Unknown 05/17/2024 3:08 PM EDT 05/17/2024 3:37 PM EDT Narrative [facility] - 05/17/2024 4:06 PM EDT OPTIMAL INR RANGES FOR PATIENT ON ORAL ANTICOAGULANT THERAPY Prevention of venous thromboembolism INR 2.0 to 3.0 In patients with heart disease: Atrial fibrillation INR 2.0 to 3.0 Valvular heart disease INR 2.0 to 3.0 Tissue heart valves INR 2.0 to 3.0 Mechanical prosthetic valves INR 2.5 to 3.5 Prevention of recurrent NM INR 2.5 to 3.5 us Maite Austin MD LAB BLOOD ORDERABLES Final Resu lt Performing Organization Address City/[facility]/ZIP Co de Phone Number [facility] [address] [place] [address] * (ABNORMAL) APTT (05/17/2024 3:08 PM EDT) aPTT 41(H) 25 - 35 sec LAB COAGULATION METHOD 05/17/2024 4:06 PM EDT [facility] Blood Venous blood specimen / Unknown Venipuncture / Unknown 05/17/2024 3:08 PM EDT 05/17/2024 3:37 PM EDT us Maite Austin MD LAB BLOOD ORDERABLES Final Resu lt [facility] [address] [place] [address] * (ABNORMAL) CBC W/O Differential (05/17/2024 3:08 PM EDT) WBC Count 13.08(H) 3.70 - 10.30 10*3/uL LAB HEMATOLOGY METHOD 05/17/2024 4:09 PM EDT [facility] RBC Count 3.56(L) 3.90 - 5.20 10*6/uL LAB HEMATOLOGY METHOD 05/17/2024 4:09 PM EDT [facility] HGB 10.3(L) 11.2 - 15.7 g/dL LAB HEMATOLOGY METHOD 05/17/2024 4:09 PM EDT [facility] HCT 31.9(L) 34.0 - 45.0 % LAB HEMATOLOGY METHOD 05/17/2024 4:09 PM EDT [facility] Platelet Count 615(H) 155 - 369 10*3/uL LAB HEMATOLOGY METHOD 05/17/2024 4:09 PM EDT [facility] MCV 90 79 - 98 fL LAB HEMATOLOGY METHOD 05/17/2024 4:09 PM EDT [facility] MCH 28.9 26.0 - 32.0 pg LAB HEMATOLOGY METHOD 05/17/2024 4:09 PM EDT [facility] MCHC 32.3 30.7 - 35.5 g/dL LAB HEMATOLOGY METHOD 05/17/2024 4:09 PM EDT [facility] RDW 17.1(H) 11.5 - 14.5 % LAB HEMATOLOGY METHOD 05/17/2024 4:09 PM EDT [facility] MPV 10.3 8.8 - 12.5 fL LAB HEMATOLOGY METHOD 05/17/2024 4:09 PM EDT [facility] nRBC 0.2(H) <=0.0 per 100 WBCs LAB HEMATOLOGY METHOD 05/17/2024 4:09 PM EDT [facility] Blood Venous blood specimen / Unknown Venipuncture / Unknown 05/17/2024 3:08 PM EDT 05/17/2024 4:00 PM EDT us Maite Austin MD LAB BLOOD ORDERABLES Final Resu lt Performing Organization Address City/[facility]/ZIP Co de Phone Number [facility] [address] [place] [address] * (ABNORMAL) Magnesium (05/17/2024 3:08 PM EDT) [facility] Magnesium, Plasma 1.8(L) 1.9 - 2.4 mg/dL 05/17/2024 4:07 PM EDT [facility] Blood Venous blood specimen / Unknown Venipuncture / Unknown 05/17/2024 3:08 PM EDT 05/17/2024 3:37 PM EDT us Trinity Yousif APRN LAB BLOOD ORDERABLES Final Res ult Performing Organization Address City/[facility]/[place] [address] * Influenza A,B & Respiratory Syncytial Virus by PCR (05/17/2024 3:08 PM EDT) [facility] Influenza A Virus PCR Result Not Detected Not Detected 05/18/2024 7:52 AM EDT [facility] Influenza B Virus PCR Result Not Detected Not Detected 05/18/2024 7:52 AM EDT [facility] Respiratory Syncytial Virus (RSV) PCR Result Not Detected Not Detected 05/18/2024 7:52 AM EDT [facility] Swab Nasopharyngeal structure / Unknown Non-blood Collection / Unknown 05/17/2024 3:08 PM EDT 05/17/2024 3:25 PM EDT us Dulce Alamo APRN LAB MICROBIOLOGY - GENERAL O RDERABLES Final Result [facility] [address] [place] [address] * (ABNORMAL) Urinalysis with reflex microscopic (Culture NOT Included) (05/17/2024 3:07 PM EDT) Color, Urine Dark Yellow LAB URINALYSIS - AUTOMATED METHOD 05/17/2024 4:19 PM EDT [facility] Clarity, Urine Clear LAB URINALYSIS - AUTOMATED METHOD 05/17/2024 4:19 PM EDT [facility] Spec [place], Urine 1.022 1.005 - 1.030 LAB URINALYSIS - AUTOMATED METHOD 05/17/2024 4:19 PM EDT [facility] pH, Urine 5.5 5.0 - 8.0 LAB URINALYSIS - AUTOMATED METHOD 05/17/2024 4:19 PM EDT [facility] Protein, Urine 30(A) Negative mg/dL LAB URINALYSIS - AUTOMATED METHOD 05/17/2024 4:19 PM EDT [facility] Glucose, Urine Negative Negative mg/dL LAB URINALYSIS - AUTOMATED METHOD 05/17/2024 4:19 PM EDT [facility] Ketones, Urine 40(A) Negative mg/dL LAB URINALYSIS - AUTOMATED METHOD 05/17/2024 4:19 PM EDT [facility] Blood, Urine Negative Negative LAB URINALYSIS - AUTOMATED METHOD 05/17/2024 4:19 PM EDT [facility] Bilirubin, Urine Negative Negative LAB URINALYSIS - AUTOMATED METHOD 05/17/2024 4:19 PM EDT [facility] Urobilinogen, Urine 1.0 0.2 to 1.0 mg/dL LAB URINALYSIS - AUTOMATED METHOD 05/17/2024 4:19 PM EDT [facility] Leukocytes, Urine Negative Negative LAB URINALYSIS - AUTOMATED METHOD 05/17/2024 4:19 PM EDT [facility] Nitrite, Urine Negative Negative LAB URINALYSIS - AUTOMATED METHOD 05/17/2024 4:19 PM EDT [facility] Urine Urine specimen obtained by clean catch procedure / Unknown Non-blood Collection / Unknown 05/17/2024 3:07 PM EDT 05/17/2024 4:00 PM EDT us Maite Austin MD LAB URINE ORDERABLES Final Resu lt Performing Organization Address [facility] [place] [address] * (ABNORMAL) Urine Culture (05/17/2024 3:07 PM EDT) Pathologist [facility] Culture 100 CFU/mL Normal Urogenital [place](A) 05/18/2024 12:42 PM EDT [facility] Urine Urine specimen obtained by clean catch procedure / Unknown Non-blood Collection / Unknown 05/17/2024 3:07 PM EDT 05/17/2024 3:44 PM EDT us Maite Austin MD LAB MICROBIOLOGY - GENERAL ORDE RABLES Final Result Performing Organization Address [facility] [place] [address] * Transfuse RBC (05/17/2024 2:46 PM EDT) Dulce Alamo ACCOUNTS RECEIVABLE SPECIALIST BLOOD TRANSFUSION ORDERABLES Final Result * Transfuse RBC: 1 Units (05/17/2024 2:46 PM EDT) Dulce Alamo ACCOUNTS RECEIVABLE SPECIALIST BLOOD TRANSFUSION ORDERABLES Final Result * Lactate, venous (05/17/2024 11:16 AM EDT) Lactate, Venous, Whole Blood 1.4 0.5 - 2.2 mmol/L LAB HEMATOLOGY METHOD 05/17/2024 11:29 AM EDT [facility] Blood Venous blood specimen / Unknown Venipuncture / Unknown 05/17/2024 11:16 AM EDT 05/17/2024 11:27 AM EDT us Maite Austin MD LAB BLOOD ORDERABLES Final Resu lt Performing Organization Address City/[facility]/ZIP Co de Phone Number [facility] [address] [place] [address] * Blood Culture (Aerobic/Anaerobet Set) (05/17/2024 11:16 AM EDT) Pathologist [facility] Culture No growth at day 5 ELI 05/22/2024 12:01 PM EDT [facility] Blood Structure of right wrist region / Unknown Venipuncture / Unknown 05/17/2024 11:16 AM EDT 05/17/2024 11:30 AM EDT us Maite Austin MD LAB MICROBIOLOGY - [facility] Final Result [facility] [address] [place] [address] * (ABNORMAL) POCT glucose meter (05/17/2024 10:59 AM EDT) [facility] POCT Glucose 68(L) 74 - 99 mg/dL [...] Comment 05/17/2024 11:01 AM EDT [facility] C.O.D. Biller ID Shira Grant 05/18/19 25 11:01 AM EDT [facility] Device ID [id number] 05/17/2024 11:01 AM EDT [facility] Specimen Type POC Capillary 05/17/2024 11:01 AM EDT [facility] Blood Capillary blood specimen / Unknown 05/17/2024 10:59 AM EDT 05/17/2024 11:01 AM EDT us Maite Austin MD LAB POINT OF CARE TE ST DOCKED DEVICE UNSOLICITED RESULTS Final Result [facility] [address] [place] [address] * (ABNORMAL) CBC W/O Differential (05/17/2024 10:29 AM EDT) [facility] Signature WBC Count 16.99(H) 3.70 - 10.30 10*3/uL LAB HEMATOLOGY METHOD 05/17/2024 2:07 PM EDT [facility] RBC Count 3.12(L) 3.90 - 5.20 10*6/uL LAB HEMATOLOGY METHOD 05/17/2024 2:07 PM EDT [facility] HGB 9.2(L) 11.2 - 15.7 g/dL LAB HEMATOLOGY METHOD 05/17/2024 2:07 PM EDT [facility] HCT 29.1(L) 34.0 - 45.0 % LAB HEMATOLOGY METHOD 05/17/2024 2:07 PM EDT [facility] Platelet Count 639(H) 155 - 369 10*3/uL LAB HEMATOLOGY METHOD 05/17/2024 2:07 PM EDT [facility] MCV 93 79 - 98 fL LAB HEMATOLOGY METHOD 05/17/2024 2:07 PM EDT [facility] MCH 29.5 26.0 - 32.0 pg LAB HEMATOLOGY METHOD 05/17/2024 2:07 PM EDT [facility] MCHC 31.6 30.7 - 35.5 g/dL LAB HEMATOLOGY METHOD 05/17/2024 2:07 PM EDT [facility] RDW 16.8(H) 11.5 - 14.5 % LAB HEMATOLOGY METHOD 05/17/2024 2:07 PM EDT [facility] MPV 10.8 8.8 - 12.5 fL LAB HEMATOLOGY METHOD 05/17/2024 2:07 PM EDT [facility] nRBC 0.0 <=0.0 per 100 WBCs LAB HEMATOLOGY METHOD 05/17/2024 2:07 PM EDT [facility] Blood Venous blood specimen / Unknown Venipuncture / Unknown 05/17/2024 10:29 AM EDT 05/17/2024 10:29 AM EDT us Trinity Yousif ACCOUNTS RECEIVABLE SPECIALIST LAB BLOOD ORDERABLES Final Res ult [facility] [address] [place] [address] * (ABNORMAL) WBC Differential (05/17/2024 10:29 AM EDT) Differential Type Automated LAB HEMATOLOGY METHOD 05/17/2024 11:59 AM EDT [facility] Neutrophils % 76 % LAB HEMATOLOGY METHOD 05/17/2024 11:59 AM EDT [facility] Lymphocytes % 10 % LAB HEMATOLOGY METHOD 05/17/2024 11:59 AM EDT [facility] Monocytes % 10 % LAB HEMATOLOGY METHOD 05/17/2024 11:59 AM EDT [facility] Eosinophils % 1 % LAB HEMATOLOGY METHOD 05/17/2024 11:59 AM EDT [facility] Basophils % 0 % LAB HEMATOLOGY METHOD 05/17/2024 11:59 AM EDT [facility] Immature Granulocytes % 3 % LAB HEMATOLOGY METHOD 05/17/2024 11:59 AM EDT [facility] Immature Granulocytes Absolute 0.47(H) 0.00 - 0.06 10*3/uL LAB HEMATOLOGY METHOD 05/17/2024 11:59 AM EDT [facility] Neutrophils Absolute 12.68(H) 1.60 - 6.10 10*3/uL LAB HEMATOLOGY METHOD 05/17/2024 11:59 AM EDT [facility] Lymphocytes Absolute 1.71 1.20 - 3.90 10*3/uL LAB HEMATOLOGY METHOD 05/17/2024 11:59 AM EDT [facility] Monocytes Absolute 1.62(H) 0.30 - 0.90 10*3/uL LAB HEMATOLOGY METHOD 05/17/2024 11:59 AM EDT [facility] Basophils Absolute 0.07 0.00 - 0.10 10*3/uL LAB HEMATOLOGY METHOD 05/17/2024 11:59 AM EDT [facility] Eosinophils Absolute 0.11 0.00 - 0.50 10*3/uL LAB HEMATOLOGY METHOD 05/17/2024 11:59 AM EDT [facility] Blood Venous blood specimen / Unknown Venipuncture / Unknown 05/17/2024 10:29 AM EDT 05/17/2024 10:29 AM EDT us Dulce Alamo APRN LAB BLOOD ORDERABLES Final R esult [facility] [address] [place] [address] * Lavender Top (05/17/2024 10:29 AM EDT) Pathologist [facility] Extra Hold for add-ons 05/17/2024 1:01 PM EDT [facility] Comment:Auto resulted. Blood Venous blood specimen / Unknown Venipuncture / Unknown 05/17/2024 10:29 AM EDT 05/17/2024 10:29 AM EDT us Maite Austin MD LAB BLOOD ORDERABLES Final Resu lt Performing Organization Address [facility]/ZIP Co de Phone Number [facility] [address] [place] [address] * (ABNORMAL) Lipase (05/17/2024 10:23 AM EDT) [facility] Lipase, Plasma 93(H) 19 - 63 U/L 05/17/2024 2:58 PM EDT [facility] Blood Venous blood specimen / Unknown Venipuncture / Unknown 05/17/2024 10:23 AM EDT 05/17/2024 10:28 AM EDT us Maite Austin MD LAB BLOOD ORDERABLES Final Resu lt Performing Organization Address [facility]/ZIP Co de Phone Number [facility] [address] [place] [address] * (ABNORMAL) Comprehensive metabolic panel (05/17/2024 10:23 AM EDT) Pathologist [facility] Glucose, Plasma 58(L) 74 - 99 mg/dL 05/17/2024 2:08 PM EDT [facility] BUN, Plasma 13 7 - 21 mg/dL 05/17/2024 2:08 PM EDT [facility] Creatinine, Plasma 0.79 0.60 - 1.10 mg/dL 05/17/2024 2:08 PM EDT [facility] BUN/Creatinine Ratio 16 05/17/2024 2:08 PM EDT [facility] Sodium, Plasma 147(H) 136 - 145 mmol/L 05/17/2024 2:08 PM EDT [facility] Potassium, Plasma 4.0 3.6 - 4.9 mmol/L 05/17/2024 2:08 PM EDT [facility] Chloride, Plasma 116(H) 97 - 107 mmol/L 05/17/2024 2:08 PM EDT [facility] CO2, Plasma 14(L) 22 - 29 mmol/L 05/17/2024 2:08 PM EDT [facility] Anion Gap 17(H) 6 - 16 mmol/L 05/17/2024 2:08 PM EDT [facility] Total Calcium, Plasma 7.4(L) 8.9 - 10.2 mg/dL 05/17/2024 2:08 PM EDT [facility] Total Protein 6.1(L) 6.3 - 7.9 g/dL 05/17/2024 2:08 PM EDT [facility] Albumin, Plasma 2.4(L) 3.5 - 5.2 g/dL 05/17/2024 2:08 PM EDT [facility] AST, Plasma 83(H) 10 - 35 U/L 05/17/2024 2:08 PM EDT [facility] ALT, Plasma 37(H) 10 - 35 U/L 05/17/2024 2:08 PM EDT [facility] Alkaline Phosphatase, Plasma 127(H) 35 - 104 U/L 05/17/2024 2:08 PM EDT [facility] Total Bilirubin, Plasma 0.7 0.2 - 1.1 mg/dL 05/17/2024 2:08 PM EDT [facility] eGFRcr 89.0 mL/min/1.7 3m*2 05/17/2024 2:08 PM EDT [facility] Comment:Reported eGFRcr in m L/min/1.73m2 is based the CKD-EPI 2020 equation that does not use a race coefficient. Blood Venous blood specimen / Unknown Venipuncture / Unknown 05/17/2024 10:23 AM EDT 05/17/2024 10:28 AM EDT Trinity S Yousif ACCOUNTS RECEIVABLE SPECIALIST LAB BLOOD ORDERABLES Final Res ult Performing Organization Address City/[facility]/ZIP Co de Phone Number [facility] [address] [place] [address] * (ABNORMAL) C-reactive protein (05/17/2024 10:23 AM EDT) CRP, Plasma 225.3(H) <=8.0 mg/L 05/17/2024 2:08 PM EDT [facility] Blood Venous blood specimen / Unknown Venipuncture / Unknown 05/17/2024 10:23 AM EDT 05/17/2024 10:28 AM EDT Narrative [facility] - 05/17/2024 2:08 PM EDT This CRP test is appropriate for assessment of infection, systemic inflammation and/or tissue injury. To assess cardiovascular disease risk order high sensitivity CRP (CRPH). Trinity Yousif ACCOUNTS RECEIVABLE SPECIALIST LAB BLOOD ORDERABLES Final Res ult Performing Organization Address [facility]/ZIP Co de Phone Number [facility] [address] [place] [address] * (ABNORMAL) Magnesium (05/17/2024 10:23 AM EDT) Magnesium, Plasma 1.8(L) 1.9 - 2.4 mg/dL 05/17/2024 11:05 AM EDT [facility] Blood Venous blood specimen / Unknown Venipuncture / Unknown 05/17/2024 10:23 AM EDT 05/17/2024 10:28 AM EDT Dulce Alamo ACCOUNTS RECEIVABLE SPECIALIST LAB BLOOD ORDERABLES Final R esult Performing Organization Address City/[facility]/ZIP Co de Phone Number [facility] [address] [place] [address] * (ABNORMAL) Basic metabolic panel (05/17/2024 10:23 AM EDT) Glucose, Plasma 69(L) 74 - 99 mg/dL 05/17/2024 11:05 AM EDT [facility] BUN, Plasma 13 7 - 21 mg/dL 05/17/2024 11:05 AM EDT [facility] Creatinine, Plasma 0.77 0.60 - 1.10 mg/dL 05/17/2024 11:05 AM EDT [facility] BUN/Creatinine Ratio 17 05/17/2024 11:05 AM EDT [facility] Sodium, Plasma 150(H) 136 - 145 mmol/L 05/17/2024 11:05 AM EDT [facility] Potassium, Plasma 4.1 3.6 - 4.9 mmol/L 05/17/2024 11:05 AM EDT [facility] Chloride, Plasma 118(H) 97 - 107 mmol/L 05/17/2024 11:05 AM EDT [facility] CO2, Plasma 16(L) 22 - 29 mmol/L 05/17/2024 11:05 AM EDT [facility] Anion Gap 16 6 - 16 mmol/L 05/17/2024 11:05 AM EDT [facility] Total Calcium, Plasma 7.4(L) 8.9 - 10.2 mg/dL 05/17/2024 11:05 AM EDT [facility] eGFRcr 91.8 mL/min/1.7 3m*2 05/17/2024 11:05 AM EDT [facility] Comment:Reported eGFRcr in m L/min/1.73m2 is based the CKD-EPI 2020 equation that does not use a race coefficient. Blood Venous blood specimen / Unknown Venipuncture / Unknown 05/17/2024 10:23 AM EDT 05/17/2024 10:28 AM EDT us Dulce Alamo APRN LAB BLOOD ORDERABLES Final R esult [facility] [address] [place] [address] * Prepare Leukocyte Reduced RBC: 1 Units (05/17/2024 9:04 AM EDT) Product Code [id number] BLOO D BANK Dispense Status Transfused BLOOD BANK Blood Expiration Date [id number] BLOOD BANK Unit Number [id number] CH B LOOD BANK Product Blood Type 1700 BLOOD BANK Blood Type B- BLOOD BANK Crossmatch Compatible BLOOD BANK Other Dulce Alamo APRN BLOOD BANK PRODUCT ORDERABLE S Final Result Performing Organization Address [facility] de Phone Number BLOOD BANK [address] [place] [address], * POCT glucose meter (05/17/2024 6:04 AM EDT) [facility] POCT Glucose 78 74 - 99 mg/dL [...] 05/17/2024 6:07 AM EDT [facility] C.O.D. Biller ID Leonarda Londono 6:07 AM EDT [facility] Device ID [id number] 05/17/2024 6:07 AM EDT [facility] Specimen Type POC Capillary 05/17/2024 6:07 AM [facility]T [facility] Blood Capillary blood specimen / Unknown 05/17/2024 6:04 AM EDT 05/17/2024 6:07 AM EDT Maite Austin MD LAB POINT OF CARE TE ST DOCKED DEVICE UNSOLICITED RESULTS Final Result Performing Organization Address [facility] Co de Phone Number [facility] [address] [place] [address] * XR Abdomen 1 View (05/17/2024 5:51 [...] POCT glucose meter (05/17/2024 2:13 AM EDT) [facility] POCT Glucose 81 74 - 99 mg/dL 05/17/2024 2:15 AM EDT [facility] Comment:Accuracy of a [...] Comment 05/17/2024 2:15 AM EDT [facility] C.O.D. Biller ID Yael Dominguez 025 2:15 AM EDT [facility] Device ID [id number] 05/17/2024 2:15 AM EDT [facility] Specimen Type POC Capillary 05/17/2024 2:15 AM EDT [facility] Blood Capillary blood specimen / Unknown 05/17/2024 2:13 AM EDT 05/17/2024 2:15 AM EDT us Maite Austin MD LAB POINT OF CARE TE ST DOCKED DEVICE UNSOLICITED RESULTS Final Result Performing Organization Address City/State/[facility] Co de Phone Number [facility] [address] [place] [address] * POCT glucose meter (05/17/2024 1:03 AM EDT) [facility] POCT Glucose 77 74 - 99 mg/dL [...] for testing. Comment 05/17/2024 1:06 AM EDT [facility] C.O.D. Biller ID Leonarda Londono 1:06 AM EDT [facility] Device ID [id number] 05/17/2024 1:06 AM EDT [facility] Specimen Type POC Capillary 05/17/2024 1:06 AM EDT [facility] Blood Capillary blood specimen / Unknown 05/17/2024 1:03 AM EDT 05/17/2024 1:06 AM EDT Maite Austin MD LAB POINT OF CARE TE ST DOCKED DEVICE UNSOLICITED RESULTS Final Result Performing Organization Address City/[facility] Co de Phone Number [facility] [address] [place] [address] * (ABNORMAL) POCT glucose meter (05/16/2024 11:58 PM EDT) POCT Glucose 63(L) 74 - 99 mg/dL [...] for testing. Comment 05/16/2024 11:59 PM EDT [facility] C.O.D. Biller ID Yael Dominguez 025 11:59 PM EDT [facility] Device ID [id number] 05/16/2024 11:59 PM EDT [facility] Specimen Type POC Capillary 05/16/2024 11:59 PM EDT [facility] Blood Capillary blood specimen / Unknown 05/16/2024 11:58 PM EDT 05/16/2024 11:59 PM EDT Maite Austin MD LAB POINT OF CARE TE ST DOCKED DEVICE UNSOLICITED RESULTS Final Result Performing Organization Address City/[facility]/ZIP Co de Phone Number [facility] [address] [place] [address] * POCT glucose meter (05/16/2024 5:47 PM EDT) Pathologist [facility] POCT Glucose 80 74 - 99 mg/dL [...] 05/16/2024 5:49 PM EDT [facility] C.O.D. Biller ID Cristel Chen 5:49 PM EDT [facility] Device ID [id number] 05/16/2024 5:49 PM EDT [facility] Specimen Type POC Capillary 05/16/2024 5:49 PM EDT [facility] Blood Capillary blood specimen / Unknown 05/16/2024 5:47 PM EDT 05/16/2024 5:49 PM EDT Maite Austin MD LAB POINT OF CARE TE ST DOCKED DEVICE UNSOLICITED RESULTS Final Result Performing Organization Address City/[facility] Phone Number [facility] [address] [place] [address] * POCT glucose meter (05/16/2024 12:10 PM EDT) [facility] POCT Glucose 91 74 - 99 mg/dL [...] 05/16/2024 12:11 PM EDT [facility] C.O.D. Biller ID Amanda Miller 025 12:11 PM EDT [facility] Device ID [id number] 05/16/2024 12:11 PM EDT [facility] Specimen Type POC Capillary 05/16/2024 12:11 PM EDT [facility] Blood Capillary blood specimen / Unknown 05/16/2024 12:10 PM EDT 05/16/2024 12:11 PM EDT Maite Austin MD LAB POINT OF CARE TE ST DOCKED DEVICE UNSOLICITED RESULTS Final Result [facility] [address] [place] [address] * Potassium (05/16/2024 12:05 PM EDT) [facility] Potassium, Plasma 4.1 3.6 - 4.9 mmol/L 05/16/2024 2:03 PM EDT [facility] Blood Venous blood specimen / Unknown Venipuncture / Unknown 05/16/2024 12:05 PM EDT 05/16/2024 12:48 PM EDT us Uriah PHILLIP LAB BLOOD ORDERABLES Final Result Performing Organization Address [facility] Co de Phone Number [facility] [address] [place] [address] * (ABNORMAL) POCT glucose meter (05/16/2024 5:28 AM EDT) [facility] POCT Glucose 100(H) 74 - 99 mg/dL [...] for testing. Comment 05/16/2024 5:30 AM EDT [facility] C.O.D. Biller ID Tiana Miller 05/17/19 25 5:30 AM EDT [facility] Device ID [id number] 05/16/2024 5:30 AM EDT [facility] Specimen Type POC Capillary 05/16/2024 5:30 AM EDT [facility] Blood Capillary blood specimen / Unknown 05/16/2024 5:28 AM EDT 05/16/2024 5:30 AM EDT us Maite Austin MD LAB POINT OF CARE TE ST DOCKED DEVICE UNSOLICITED RESULTS Final Result Performing Organization Address [facility] Co de Phone Number [facility] [address] [place] [address] * Magnesium (05/16/2024 3:20 AM EDT) Magnesium, Plasma 2.0 1.9 - 2.4 mg/dL 05/16/2024 3:58 AM EDT [facility] Blood Venous blood specimen / Unknown Venipuncture / Unknown 05/16/2024 3:20 AM EDT 05/16/2024 3:26 AM EDT Trinity Yousif APRN LAB BLOOD ORDERABLES Final Res ult [facility] [address] [place] [address] * (ABNORMAL) Comprehensive metabolic panel (05/16/2024 3:20 AM EDT) Glucose, Plasma 99 74 - 99 mg/dL 05/16/2024 3:58 AM EDT [facility] BUN, Plasma 13 7 - 21 mg/dL 05/16/2024 3:58 AM EDT [facility] Creatinine, Plasma 0.91 0.60 - 1.10 mg/dL 05/16/2024 3:58 AM EDT [facility] BUN/Creatinine Ratio 14 05/16/2024 3:58 AM EDT [facility] Sodium, Plasma 144 136 - 145 mmol/L 05/16/2024 3:58 AM EDT [facility] Potassium, Plasma 3.5(L) 3.6 - 4.9 mmol/L 05/16/2024 3:58 AM EDT [facility] Chloride, Plasma 114(H) 97 - 107 mmol/L 05/16/2024 3:58 AM EDT [facility] CO2, Plasma 21(L) 22 - 29 mmol/L 05/16/2024 3:58 AM EDT [facility] Anion Gap 9 6 - 16 mmol/L 05/16/2024 3:58 AM EDT [facility] Total Calcium, Plasma 7.4(L) 8.9 - 10.2 mg/dL 05/16/2024 3:58 AM EDT [facility] Total Protein 5.5(L) 6.3 - 7.9 g/dL 05/16/2024 3:58 AM EDT [facility] Albumin, Plasma 2.2(L) 3.5 - 5.2 g/dL 05/16/2024 3:58 AM EDT [facility] AST, Plasma 60(H) 10 - 35 U/L 05/16/2024 3:58 AM EDT [facility] ALT, Plasma 19 10 - 35 U/L 05/16/2024 3:58 AM EDT [facility] Alkaline Phosphatase, Plasma 121(H) 35 - 104 U/L 05/16/2024 3:58 AM EDT [facility] Total Bilirubin, Plasma 0.6 0.2 - 1.1 mg/dL 05/16/2024 3:58 AM EDT [facility] eGFRcr 75.1 mL/min/1.7 3m*2 05/16/2024 3:58 AM EDT [facility] Comment:Reported eGFRcr in m L/min/1.73m2 is based the CKD-EPI 2020 equation that does not use a race coefficient. Blood Venous blood specimen / Unknown Venipuncture / Unknown 05/16/2024 3:20 AM EDT 05/16/2024 3:26 AM EDT us Trinity Yousif ACCOUNTS RECEIVABLE SPECIALIST LAB BLOOD ORDERABLES Final Res ult [facility] [address] [place] [address] * (ABNORMAL) Hemogram (CBC) (05/16/2024 3:20 AM EDT) WBC Count 20.02(H) 3.70 - 10.30 10*3/uL LAB HEMATOLOGY METHOD 05/16/2024 3:38 AM EDT [facility] RBC Count 3.02(L) 3.90 - 5.20 10*6/uL LAB HEMATOLOGY METHOD 05/16/2024 3:38 AM EDT [facility] HGB 8.8(L) 11.2 - 15.7 g/dL LAB HEMATOLOGY METHOD 05/16/2024 3:38 AM EDT [facility] HCT 27.6(L) 34.0 - 45.0 % LAB HEMATOLOGY METHOD 05/16/2024 3:38 AM EDT [facility] Platelet Count 480(H) 155 - 369 10*3/uL LAB HEMATOLOGY METHOD 05/16/2024 3:38 AM EDT [facility] MCV 91 79 - 98 fL LAB HEMATOLOGY METHOD 05/16/2024 3:38 AM EDT [facility] MCH 29.1 26.0 - 32.0 pg LAB HEMATOLOGY METHOD 05/16/2024 3:38 AM EDT [facility] MCHC 31.9 30.7 - 35.5 g/dL LAB HEMATOLOGY METHOD 05/16/2024 3:38 AM EDT [facility] RDW 17.1(H) 11.5 - 14.5 % LAB HEMATOLOGY METHOD 05/16/2024 3:38 AM EDT [facility] MPV 10.4 8.8 - 12.5 fL LAB HEMATOLOGY METHOD 05/16/2024 3:38 AM EDT [facility] nRBC 0.2(H) <=0.0 per 100 WBCs LAB HEMATOLOGY METHOD 05/16/2024 3:38 AM EDT [facility] Blood Venous blood specimen / Unknown Venipuncture / Unknown 05/16/2024 3:20 AM EDT 05/16/2024 3:26 AM EDT us Trinity Yousif ACCOUNTS RECEIVABLE SPECIALIST LAB BLOOD ORDERABLES Final Res ult Performing Organization Address City/State/[facility] Co de Phone Number [facility] [address] [place] [address] * XR Abdomen 1 View (05/16/2024 2:40 [...] Adam MD on 05/16/2024 7:55 AM Trinity Yousif ACCOUNTS RECEIVABLE SPECIALIST IMG XR PROCEDURES Final Result * XR [...] MD on 05/16/2024 10:33 AM Trinity Yousif APRN IMG XR PROCEDURES Final Result * (ABNORMAL) POCT glucose meter (05/16/2024 12:48 AM EDT) POCT Glucose 125(H) 74 - 99 mg/dL 05/16/2024 12:50 AM EDT [facility] Comment:Accuracy of [...] for testing. Comment 05/16/2024 12:50 AM EDT [facility] C.O.D. Biller ID Tiana Miller 05/17/19 12:50 AM EDT [facility] Device ID [id number] 05/16/2024 12:50 AM EDT [facility] Specimen Type POC Capillary 05/16/2024 12:50 AM EDT [facility] Blood Capillary blood specimen / Unknown 05/16/2024 12:48 AM EDT 05/16/2024 12:50 AM EDT us Maite Austin MD LAB POINT OF CARE TE ST DOCKED DEVICE UNSOLICITED RESULTS Final Result [facility] [address] [place] [address] * (ABNORMAL) POCT glucose meter (05/15/2024 11:38 AM EDT) POCT Glucose 102(H) 74 - 99 mg/dL 05/15/2024 11:41 AM EDT [facility] Comment:Accuracy of a [...] for testing. Comment 05/15/2024 11:41 AM EDT [facility] C.O.D. Biller ID Jame Okeefe 05/15/2024 11:41 AM EDT [facility] Device ID [id number] 05/15/2024 11:41 AM EDT [facility] Specimen Type POC Capillary 05/15/2024 11:41 AM EDT [facility] Blood Capillary blood specimen / Unknown 05/15/2024 11:38 AM EDT 05/15/2024 11:41 AM EDT us Maite Austin MD LAB POINT OF CARE TE ST DOCKED DEVICE UNSOLICITED RESULTS Final Result [facility] [address] [place] [address] * (ABNORMAL) POCT glucose meter (05/15/2024 5:11 AM EDT) POCT Glucose 108(H) 74 - [...] 05/15/2024 5:12 AM EDT [facility] C.O.D. Biller ID Betty Young 025 5:12 AM EDT [facility] Device ID [id number] 05/15/2024 5:12 AM EDT [facility] Specimen Type POC Capillary 05/15/2024 5:12 AM EDT [facility] Blood Capillary blood specimen / Unknown 05/15/2024 5:11 AM EDT 05/15/2024 5:12 AM EDT us Maite Austin MD LAB POINT OF CARE TE ST DOCKED DEVICE UNSOLICITED RESULTS Final Result [facility] [address] [place] [address] * XR Abdomen 1 View (05/15/2024 2:56 [...] - 99 mg/dL 05/15/2024 2:14 AM EDT [facility] BUN, Plasma 17 7 - 21 mg/dL 05/15/2024 2:14 AM EDT [facility] Creatinine, Plasma 0.90 0.60 - 1.10 mg/dL 05/15/2024 2:14 AM EDT [facility] BUN/Creatinine Ratio 19 05/15/2024 2:14 AM EDT [facility] Sodium, Plasma 145 136 - 145 mmol/L 05/15/2024 2:14 AM EDT [facility] Potassium, Plasma 3.3(L) 3.6 - 4.9 mmol/L 05/15/2024 2:14 AM EDT [facility] Chloride, Plasma 111(H) 97 - 107 mmol/L 05/15/2024 2:14 AM EDT [facility] CO2, Plasma 22 22 - 29 mmol/L 05/15/2024 2:14 AM EDT [facility] Anion Gap 12 6 - 16 mmol/L 05/15/2024 2:14 AM EDT [facility] Total Calcium, Plasma 7.3(L) 8.9 - 10.2 mg/dL 05/15/2024 2:14 AM EDT [facility] Total Protein 5.7(L) 6.3 - 7.9 g/dL 05/15/2024 2:14 AM EDT [facility] Albumin, Plasma 2.4(L) 3.5 - 5.2 g/dL 05/15/2024 2:14 AM EDT [facility] AST, Plasma 68(H) 10 - 35 U/L 05/15/2024 2:14 AM EDT [facility] ALT, Plasma 20 10 - 35 U/L 05/15/2024 2:14 AM EDT [facility] Alkaline Phosphatase, Plasma 129(H) 35 - 104 U/L 05/15/2024 2:14 AM EDT [facility] Total Bilirubin, Plasma 1.0 0.2 - 1.1 mg/dL 05/15/2024 2:14 AM EDT [facility] eGFRcr 76.1 mL/min/1.7 3m*2 05/15/2024 2:14 AM EDT [facility] Comment:Reported eGFRcr in m L/min/1.73m2 is based the CKD-EPI 2020 equation that does not use a race coefficient. Blood Venous blood specimen / Unknown Venipuncture / Unknown 05/15/2024 1:13 AM EDT 05/15/2024 1:20 AM EDT us Maite Austin MD LAB BLOOD ORDERABLES Final Resu lt Performing Organization Address City/[facility]/ZIP Co de Phone Number [facility] [address] [place] [address] * Phosphorus (05/15/2024 1:13 AM EDT) Phosphorus, Plasma 3.9 2.5 - 4.5 mg/dL 05/15/2024 2:14 AM EDT [facility] Blood Venous blood specimen / Unknown Venipuncture / Unknown 05/15/2024 1:13 AM EDT 05/15/2024 1:20 AM EDT us Maite Austin MD LAB BLOOD ORDERABLES Final Resu lt [facility] [address] [place] [address] * Magnesium (05/15/2024 1:13 AM EDT) Magnesium, Plasma 1.9 1.9 - 2.4 mg/dL 05/15/2024 2:14 AM EDT [facility] Blood Venous blood specimen / Unknown Venipuncture / Unknown 05/15/2024 1:13 AM EDT 05/15/2024 1:20 AM EDT us Maite Austin MD LAB BLOOD ORDERABLES Final Resu lt [facility] [address] [place] [address] * (ABNORMAL) CBC W/O Differential (05/15/2024 1:13 AM EDT) WBC Count 28.49(H) 3.70 - 10.30 10*3/uL LAB HEMATOLOGY METHOD 05/15/2024 3:22 AM EDT [facility] RBC Count 3.02(L) 3.90 - 5.20 10*6/uL LAB HEMATOLOGY METHOD 05/15/2024 3:22 AM EDT [facility] HGB 8.9(L) 11.2 - 15.7 g/dL LAB HEMATOLOGY METHOD 05/15/2024 3:22 AM EDT [facility] HCT 26.5(L) 34.0 - 45.0 % LAB HEMATOLOGY METHOD 05/15/2024 3:22 AM EDT [facility] Platelet Count 402(H) 155 - 369 10*3/uL LAB HEMATOLOGY METHOD 05/15/2024 3:22 AM EDT [facility] MCV 88 79 - 98 fL LAB HEMATOLOGY METHOD 05/15/2024 3:22 AM EDT [facility] MCH 29.5 26.0 - 32.0 pg LAB HEMATOLOGY METHOD 05/15/2024 3:22 AM EDT [facility] MCHC 33.6 30.7 - 35.5 g/dL LAB HEMATOLOGY METHOD 05/15/2024 3:22 AM EDT [facility] RDW 16.5(H) 11.5 - 14.5 % LAB HEMATOLOGY METHOD 05/15/2024 3:22 AM EDT [facility] MPV 10.7 8.8 - 12.5 fL LAB HEMATOLOGY METHOD 05/15/2024 3:22 AM EDT [facility] nRBC 0.7(H) <=0.0 per 100 WBCs LAB HEMATOLOGY METHOD 05/15/2024 3:22 AM EDT [facility] Blood Venous blood specimen / Unknown Venipuncture / Unknown 05/15/2024 1:13 AM EDT 05/15/2024 1:20 AM EDT us Maite Austin MD LAB BLOOD ORDERABLES Final Resu lt [facility] [address] [place] [address] * WBC Differential (05/15/2024 1:13 AM EDT) Differential Type LAB HEMATOLOGY METHOD 05/15/2024 3:21 AM EDT [facility] Neutrophils % LAB HEMATOLOGY METHOD 05/15/2024 3:21 AM EDT [facility] Lymphocytes % LAB HEMATOLOGY METHOD 05/15/2024 3:21 AM EDT [facility] Monocytes % LAB HEMATOLOGY METHOD 05/15/2024 3:21 AM EDT [facility] Eosinophils % LAB HEMATOLOGY METHOD 05/15/2024 3:21 AM EDT [facility] Basophils % LAB HEMATOLOGY METHOD 05/15/2024 3:21 AM EDT [facility] Immature Granulocytes % LAB HEMATOLOGY METHOD 05/15/2024 3:21 AM EDT [facility] Immature Granulocytes Absolute LAB HEMATOLOGY METHOD 05/15/2024 3:21 AM EDT [facility] Neutrophils Absolute LAB HEMATOLOGY METHOD 05/15/2024 3:21 AM EDT [facility] Lymphocytes Absolute LAB HEMATOLOGY METHOD 05/15/2024 3:21 AM EDT [facility] Monocytes Absolute LAB HEMATOLOGY METHOD 05/15/2024 3:21 AM EDT [facility] Basophils Absolute LAB HEMATOLOGY METHOD 05/15/2024 3:21 AM EDT [facility] Eosinophils Absolute LAB HEMATOLOGY METHOD 05/15/2024 3:21 AM EDT [facility] Blood Venous blood specimen / Unknown Venipuncture / Unknown 05/15/2024 1:13 AM EDT 05/15/2024 1:20 AM EDT us Lora Llanes APRN LAB BLOOD ORDERABLES Final Result [facility] [address] [place] [address] * (ABNORMAL) POCT glucose meter (05/14/2024 6:04 PM EDT) POCT Glucose 145(H) 74 - 99 mg/dL 05/14/2024 6:06 PM EDT [facility] Comment:Accuracy of [...] Comment 05/14/2024 6:06 PM EDT [facility] C.O.D. Biller ID Jazmyne Malone 6:06 PM EDT [facility] Device ID [id number] 05/14/2024 6:06 PM EDT [facility] Specimen Type POC Capillary 05/14/2024 6:06 PM EDT [facility] Blood Capillary blood specimen / Unknown 05/14/2024 6:04 PM EDT 05/14/2024 6:06 PM EDT us Maite Austin MD LAB POINT OF CARE TE ST DOCKED DEVICE UNSOLICITED RESULTS Final Result Performing Organization Address City/[facility] Co de Phone Number [facility] [address] [place] [address] * Transfuse RBC (05/14/2024 3:26 PM EDT) us Maite Austin MD BLOOD TRANSFUSION ORDERABLES Fi nal Result * Transfuse RBC: 1 Units (05/14/2024 3:26 PM EDT) us Maite Asutin MD BLOOD TRANSFUSION ORDERABLES Fi nal Result * POCT glucose meter (05/14/2024 12:10 PM EDT) Pathologist [facility] POCT Glucose 94 74 - 99 mg/dL 05/14/2024 12:11 PM EDT [facility] Comment:Accuracy [...] Comment 05/14/2024 12:11 PM EDT [facility] C.O.D. Biller ID Jazmyne Malone 12:11 PM EDT [facility] Device ID [id number] 05/14/2024 12:11 PM EDT [facility] Specimen Type POC Venous 05/14/2024 12:11 PM EDT [facility] Blood Venous blood specimen / Unknown 05/14/2024 12:10 PM EDT 05/14/2024 12:11 PM EDT Maite Austin MD LAB POINT OF CARE TE ST DOCKED DEVICE UNSOLICITED RESULTS Final Result [facility] [address] [place] [address] * Type and screen (05/14/2024 12:10 PM EDT) ABO/Rh B Positive 05/14/2024 12:02 PM EDT [facility] Antibody Screen Negative 05/14/2024 12:02 PM EDT [facility] Specimen Expiration 05/17/2024 23:59 05/14/2024 12:02 PM EDT [facility] Blood Venous blood specimen / Unknown Venipuncture / Unknown 05/14/2024 12:10 PM EDT 05/14/2024 12:25 PM EDT Maite Austin MD LAB BLOOD BANK TEST ORDERABLES Final Result [facility] BANK [address] [place] [address] * (ABNORMAL) Ferritin (05/14/2024 12:10 PM EDT) Ferritin, Serum 1,271(H) 13 - 150 ng/mL 05/14/2024 1:05 PM EDT [facility] Blood Venous blood specimen / Unknown Venipuncture / Unknown 05/14/2024 12:10 PM EDT 05/14/2024 12:22 PM EDT Maite Austin MD LAB BLOOD ORDERABLES Final Resu lt Performing Organization Address City/[facility]/ZIP Co de Phone Number [facility] [address] [place] [address] * (ABNORMAL) Iron & Total Iron Binding Capacity, Plasma (Includes Transferrin) (05/14/2024 12:10 PM EDT) Iron, Plasma 25(L) 30 - 160 ug/dL 05/14/2024 1:01 PM EDT [facility] Transferrin, Plasma 125(L) 200 - 360 mg/dL 05/14/2024 1:01 PM EDT [facility] Total Iron Binding Capacity, Plasma 156(L) 240 - 450 ug/mL 05/14/2024 1:01 PM EDT [facility] Transferrin Saturation 16 14 - 50 % 05/14/2024 1:01 PM EDT [facility] Blood Venous blood specimen / Unknown Venipuncture / Unknown 05/14/2024 12:10 PM EDT 05/14/2024 12:22 PM EDT Maite Austin MD LAB BLOOD ORDERABLES Final Resu lt Performing Organization Address [facility] Co de Phone Number [facility] [address] [place] [address] * Prepare Leukocyte Reduced RBC: 1 Units (05/14/2024 12:02 PM EDT) Product Code X8425S57 CH BLOO D BANK Dispense Status Transfused BLOOD BANK Blood Expiration Date [id number] BLOOD BANK Unit Number [id number] CH B LOOD BANK Product Blood Type 7300 CH BLOOD BANK Blood Type B+ BLOOD BANK Crossmatch Compatible BLOOD BANK Other Maite Austin MD BLOOD BANK PRODUCT ORDERABLES F inal Result BLOOD BANK [address] [place] [address], [place] * XR Abdomen 1 View (05/14/2024 [...] Zamzam Banda MD on 05/14/2024 3:00 PM Maite Austin MD IMG XR PROCEDURES [...] - 4.5 mg/dL 05/14/2024 4:52 AM EDT [facility] Blood Venous blood specimen / Unknown Venipuncture / Unknown 05/14/2024 3:35 AM EDT 05/14/2024 3:53 AM EDT Maite Austin MD LAB BLOOD ORDERABLES Final Resu lt [facility] [address] [place] [address] * (ABNORMAL) Basic metabolic panel (05/14/2024 3:35 AM EDT) Glucose, Plasma 109(H) 74 - 99 mg/dL 05/14/2024 4:52 AM EDT [facility] BUN, Plasma 16 7 - 21 mg/dL 05/14/2024 4:52 AM EDT [facility] Creatinine, Plasma 0.89 0.60 - 1.10 mg/dL 05/14/2024 4:52 AM EDT [facility] BUN/Creatinine Ratio 18 05/14/2024 4:52 AM EDT [facility] Sodium, Plasma 141 136 - 145 mmol/L 05/14/2024 4:52 AM EDT [facility] Potassium, Plasma 3.6 3.6 - 4.9 mmol/L 05/14/2024 4:52 AM EDT [facility] Chloride, Plasma 109(H) 97 - 107 mmol/L 05/14/2024 4:52 AM EDT [facility] CO2, Plasma 23 22 - 29 mmol/L 05/14/2024 4:52 AM EDT [facility] Anion Gap 9 6 - 16 mmol/L 05/14/2024 4:52 AM EDT [facility] Total Calcium, Plasma 7.4(L) 8.9 - 10.2 mg/dL 05/14/2024 4:52 AM EDT [facility] eGFRcr 77.2 mL/min/1.7 3m*2 05/14/2024 4:52 AM EDT [facility] Comment:Reported eGFRcr in m L/min/1.73m2 is based the CKD-EPI 2020 equation that does not use a race coefficient. Blood Venous blood specimen / Unknown Venipuncture / Unknown 05/14/2024 3:35 AM EDT 05/14/2024 3:53 AM EDT us Maite Austin MD LAB BLOOD ORDERABLES Final Resu lt [facility] [address] [place] [address] * (ABNORMAL) CBC W/O Differential (05/14/2024 3:35 AM EDT) WBC Count 35.22(H) 3.70 - 10.30 10*3/uL LAB HEMATOLOGY METHOD 05/14/2024 4:04 AM EDT [facility] RBC Count 2.43(L) 3.90 - 5.20 10*6/uL LAB HEMATOLOGY METHOD 05/14/2024 4:04 AM EDT [facility] HGB 7.2(L) 11.2 - 15.7 g/dL LAB HEMATOLOGY METHOD 05/14/2024 4:04 AM EDT [facility] HCT 22.0(L) 34.0 - 45.0 % LAB HEMATOLOGY METHOD 05/14/2024 4:04 AM EDT [facility] Platelet Count 352 155 - 369 10*3/uL LAB HEMATOLOGY METHOD 05/14/2024 4:04 AM EDT [facility] MCV 91 79 - 98 fL LAB HEMATOLOGY METHOD 05/14/2024 4:04 AM EDT [facility] MCH 29.6 26.0 - 32.0 pg LAB HEMATOLOGY METHOD 05/14/2024 4:04 AM EDT [facility] MCHC 32.7 30.7 - 35.5 g/dL LAB HEMATOLOGY METHOD 05/14/2024 4:04 AM EDT [facility] RDW 15.4(H) 11.5 - 14.5 % LAB HEMATOLOGY METHOD 05/14/2024 4:04 AM EDT [facility] MPV 11.0 8.8 - 12.5 fL LAB HEMATOLOGY METHOD 05/14/2024 4:04 AM EDT [facility] nRBC 0.3(H) <=0.0 per 100 WBCs LAB HEMATOLOGY METHOD 05/14/2024 4:04 AM EDT [facility] Blood Venous blood specimen / Unknown Venipuncture / Unknown 05/14/2024 3:35 AM EDT 05/14/2024 3:53 AM EDT us Maite Austin MD LAB BLOOD ORDERABLES Final Resu lt Performing Organization Address City/[facility] Co de Phone Number [facility] [address] [place] [address] * Magnesium, Plasma (05/14/2024 3:35 AM EDT) [facility] Magnesium, Plasma 2.0 1.9 - 2.4 mg/dL 05/14/2024 4:52 AM EDT [facility] Blood Venous blood specimen / Unknown Venipuncture / Unknown 05/14/2024 3:35 AM EDT 05/14/2024 3:53 AM EDT us Lora Llanes APRN LAB BLOOD ORDERABLES Final Result Performing Organization Address [facility] de Phone Number [facility] [address] [place] [address] * SARS CoV-2/COVID-19 by PCR (05/13/2024 9:34 PM EDT) [facility] SARS CoV-2/COVID-1 9 RNA PCR Result Not Detected Not Detected 05/15/2024 7:05 AM EDT [facility] Swab Nasopharyngeal structure / Unknown Non-blood Collection / Unknown 05/13/2024 9:34 PM EDT 05/13/2024 10:34 PM EDT Narrative [facility] - 05/15/2024 7:05 AM EDT [...] This test was performed using the [employer]inging [employer] SARS CoV-2 assay, a PCR-based method. Negative [...] POLLY MONK Final Result Performing Organization Address [facility] Co de Phone Number [facility] [address] [place] [address] * Nasopharyngeal Respiratory Panel (05/13/2024 9:34 PM EDT) [facility] Nasopharyngeal Respiratory PCR Interpretation Not Detected for all analytes Not Detected for all analytes 05/14/2024 2:56 AM EDT [facility] Swab Nasopharyngeal structure / Unknown Non-blood Collection / Unknown 05/13/2024 9:34 PM EDT 05/13/2024 10:34 PM EDT Narrative [facility] - 05/14/2024 2:56 AM EDT This [...] Respiratory PCR Panel is performed using the Raptr ePlex instrument. This test is FDA approved for use with Nasopharyngeal swabs only. This test is used for clinical purposes. It should not be regarded as investigational or for research. The [facility] Clinical Microbiology Laboratory is certified under the Clinical Laboratory Improvement Amendments of 1988 (CLIA-88) as qualified to perform high complexity clinical laboratory testing. Maite Austin MD LAB MICROBIOLOGY - GENERAL [facility] Final Result [facility] [address] [place] [address] * (ABNORMAL) POCT glucose meter (05/13/2024 5:21 PM EDT) [facility] POCT Glucose 146(H) 74 - 99 mg/dL 05/13/2024 5:23 PM EDT [facility] Comment:Accuracy of a glucos e result [...] for testing. Comment 05/13/2024 5:23 PM EDT [facility] C.O.D. Biller ID Yolanda Peña 5:23 PM EDT [facility] Device ID [id number] 05/13/2024 5:23 PM EDT [facility] Specimen Type POC Venous 05/13/2024 5:23 PM EDT [facility] Blood Venous blood specimen / Unknown 05/13/2024 5:21 PM EDT 05/13/2024 5:23 PM EDT us Maite Austin MD LAB POINT OF CARE TE ST DOCKED DEVICE UNSOLICITED RESULTS Final Result Performing Organization Address City/[facility] Phone Number [facility] [address] [place] [address] * POCT glucose meter (05/13/2024 12:23 PM EDT) [facility] POCT Glucose 92 74 - 99 mg/dL [...] 05/13/2024 12:25 PM EDT [facility] C.O.D. Biller ID Yolanda Peña 12:25 PM EDT [facility] Device ID [id number] 05/13/2024 12:25 PM EDT [facility] Specimen Type POC Capillary 05/13/2024 12:25 PM EDT [facility] Blood Capillary blood specimen / Unknown 05/13/2024 12:23 PM EDT 05/13/2024 12:25 PM EDT us Maite Austin MD LAB POINT OF CARE TE ST DOCKED DEVICE UNSOLICITED RESULTS Final Result [facility] [address] [place] [address] * Blood Culture (Aerobic/Anaerobet Set) (05/13/2024 9:47 AM EDT) Culture No growth at day 5 ELI 05/18/2024 11:01 AM EDT [facility] Blood Structure of antecubital vein / Unknown Venipuncture / Unknown 05/13/2024 9:47 AM EDT 05/13/2024 10:21 AM EDT Christi Sherman [facility] MICROBIOLOGY - GENERAL ORDERABLES Final Result Performing Organization Address [facility] Co de Phone Number [facility] [address] [place] [address] * (ABNORMAL) Hepatic function panel (05/13/2024 5:54 AM EDT) Conjugated Bilirubin, Plasma 0.7(H) <=0.3 mg/dL 05/13/2024 11:24 AM EDT [facility] Alkaline Phosphatase, Plasma 136(H) 35 - 104 U/L 05/13/2024 11:24 AM EDT [facility] Total Bilirubin, Plasma 1.1 0.2 - 1.1 mg/dL 05/13/2024 11:24 AM EDT [facility] Albumin, Plasma 2.6(L) 3.5 - 5.2 g/dL 05/13/2024 11:24 AM EDT [facility] Total Protein 5.5(L) 6.3 - 7.9 g/dL 05/13/2024 11:24 AM EDT [facility] ALT, Plasma 30 10 - 35 U/L 05/13/2024 11:24 AM EDT [facility] AST, Plasma 84(H) 10 - 35 U/L 05/13/2024 11:24 AM EDT [facility] Blood Venous blood specimen / Unknown Venipuncture / Unknown 05/13/2024 5:54 AM EDT 05/13/2024 6:00 AM EDT us Christi Sherman ACCOUNTS RECEIVABLE SPECIALIST LAB BLOOD ORDERABLES Final Result [facility] [address] [place] [address] * Phosphorus (05/13/2024 5:54 AM EDT) Phosphorus, Plasma 4.1 2.5 - 4.5 mg/dL 05/13/2024 6:27 AM EDT [facility] Blood Venous blood specimen / Unknown Venipuncture / Unknown 05/13/2024 5:54 AM EDT 05/13/2024 6:00 AM EDT us Lora Llanes ACCOUNTS RECEIVABLE SPECIALIST LAB BLOOD ORDERABLES Final Result Performing Organization Address [facility] Co de Phone Number [facility] [address] [place] [address] * XR Chest 1 View (05/13/2024 2:43 [...] Zahraa Berger MD on 05/13/2024 1:16 PM Christi Sherman ACCOUNTS RECEIVABLE SPECIALIST IMG XR PROCEDURES Final Re sult * [...] tip in the proximal stomach. Procedure Note Cass Stoll DO - 05/13/2024 CLINICAL INDICATION: ileus [...] DO on 05/13/2024 7:35 AM Christi Sherman ACCOUNTS RECEIVABLE SPECIALIST IMG XR PROCEDURES Final Re sult * (ABNORMAL) Procalcitonin (05/13/2024 12:43 AM EDT) Procalcitonin, Plasma 1.32(H) <0.09 ng/mL 05/13/2024 1:27 AM EDT [facility] Blood Venous blood specimen / Unknown Venipuncture / Unknown 05/13/2024 12:43 AM EDT 05/13/2024 12:49 AM EDT Narrative [facility] - 05/13/2024 1:27 AM EDT [...] predict 28 day mortality risk. Please consult [email or web address] for more information. Test performed at [facility], [facility] Laboratory. Christi Sherman ACCOUNTS RECEIVABLE SPECIALIST LAB BLOOD ORDERABLES Final Result [facility] [address] [place] [address] * (ABNORMAL) Hemogram (CBC) (05/13/2024 12:43 AM EDT) WBC Count 37.45(H) 3.70 - 10.30 10*3/uL LAB HEMATOLOGY METHOD 05/13/2024 1:02 AM EDT [facility] RBC Count 2.63(L) 3.90 - 5.20 10*6/uL LAB HEMATOLOGY METHOD 05/13/2024 1:02 AM EDT [facility] HGB 7.9(L) 11.2 - 15.7 g/dL LAB HEMATOLOGY METHOD 05/13/2024 1:02 AM EDT [facility] HCT 23.0(L) 34.0 - 45.0 % LAB HEMATOLOGY METHOD 05/13/2024 1:02 AM EDT [facility] Platelet Count 256 155 - 369 10*3/uL LAB HEMATOLOGY METHOD 05/13/2024 1:02 AM EDT [facility] MCV 88 79 - 98 fL LAB HEMATOLOGY METHOD 05/13/2024 1:02 AM EDT [facility] MCH 30.0 26.0 - 32.0 pg LAB HEMATOLOGY METHOD 05/13/2024 1:02 AM EDT [facility] MCHC 34.3 30.7 - 35.5 g/dL LAB HEMATOLOGY METHOD 05/13/2024 1:02 AM EDT [facility] RDW 14.9(H) 11.5 - 14.5 % LAB HEMATOLOGY METHOD 05/13/2024 1:02 AM EDT [facility] MPV 11.4 8.8 - 12.5 fL LAB HEMATOLOGY METHOD 05/13/2024 1:02 AM EDT [facility] nRBC 0.2(H) <=0.0 per 100 WBCs LAB HEMATOLOGY METHOD 05/13/2024 1:02 AM EDT [facility] Blood Venous blood specimen / Unknown Venipuncture / Unknown 05/13/2024 12:43 AM EDT 05/13/2024 12:49 AM EDT Christi Sherman APRN LAB BLOOD ORDERABLES Final Result [facility] [address] [place] [address] * (ABNORMAL) Renal function panel (05/13/2024 12:43 AM EDT) Glucose, Plasma 103(H) 74 - 99 mg/dL 05/13/2024 1:27 AM EDT [facility] BUN, Plasma 18 7 - 21 mg/dL 05/13/2024 1:27 AM EDT [facility] Creatinine, Plasma 0.98 0.60 - 1.10 mg/dL 05/13/2024 1:27 AM EDT [facility] BUN/Creatinine Ratio 18 05/13/2024 1:27 AM EDT [facility] Sodium, Plasma 143 136 - 145 mmol/L 05/13/2024 1:27 AM EDT [facility] Potassium, Plasma 3.8 3.6 - 4.9 mmol/L 05/13/2024 1:27 AM EDT [facility] Chloride, Plasma 106 97 - 107 mmol/L 05/13/2024 1:27 AM EDT [facility] CO2, Plasma 24 22 - 29 mmol/L 05/13/2024 1:27 AM EDT [facility] Anion Gap 13 6 - 16 mmol/L 05/13/2024 1:27 AM EDT [facility] Total Calcium, Plasma 7.7(L) 8.9 - 10.2 mg/dL 05/13/2024 1:27 AM EDT [facility] Phosphorus, Plasma 4.0 2.5 - 4.5 mg/dL 05/13/2024 1:27 AM EDT [facility] Albumin, Plasma 2.6(L) 3.5 - 5.2 g/dL 05/13/2024 1:27 AM EDT [facility] eGFRcr 68.7 mL/min/1.7 3m*2 05/13/2024 1:27 AM EDT [facility] Comment:Reported eGFRcr in m L/min/1.73m2 is based the CKD-EPI 2020 equation that does not use a race coefficient. Blood Venous blood specimen / Unknown Venipuncture / Unknown 05/13/2024 12:43 AM EDT 05/13/2024 12:49 AM EDT us Christi Sherman ACCOUNTS RECEIVABLE SPECIALIST LAB BLOOD ORDERABLES Final Result Performing Organization Address City/[facility]/ZIP Co de Phone Number [facility] [address] [place] [address] * (ABNORMAL) Magnesium, Plasma (05/13/2024 12:43 AM EDT) [facility] Magnesium, Plasma 2.5(H) 1.9 - 2.4 mg/dL 05/13/2024 1:27 AM EDT [facility] Blood Venous blood specimen / Unknown Venipuncture / Unknown 05/13/2024 12:43 AM EDT 05/13/2024 12:49 AM EDT us Lora Llanes ACCOUNTS RECEIVABLE SPECIALIST LAB BLOOD ORDERABLES Final Result Performing Organization Address [facility] [place] [address] * POCT glucose meter (05/12/2024 6:40 PM EDT) [facility] POCT Glucose 96 74 - 99 mg/dL [...] 05/12/2024 6:41 PM EDT [facility] C.O.D. Biller ID Yolanda Peña 6:41 PM EDT [facility] Device ID [id number] 05/12/2024 6:41 PM EDT [facility] Specimen Type POC Venous 05/12/2024 6:41 PM EDT [facility] Blood Venous blood specimen / Unknown 05/12/2024 6:40 PM EDT 05/12/2024 6:41 PM EDT us Maite Austin MD LAB POINT OF CARE TE ST DOCKED DEVICE UNSOLICITED RESULTS Final Result Performing Organization Address City/[facility]/ZIP Co de Phone Number [facility] [address] [place] [address] * Lactate, venous (05/12/2024 1:11 PM EDT) Lactate, Venous, Whole Blood 1.6 0.5 - 2.2 mmol/L LAB HEMATOLOGY METHOD 05/12/2024 1:17 PM EDT [facility] Blood Venous blood specimen / Unknown Venipuncture / Unknown 05/12/2024 1:11 PM EDT 05/12/2024 1:16 PM EDT us Maite Austin MD LAB BLOOD ORDERABLES Final Resu lt Performing Organization Address City/[facility]/ZIP Co de Phone Number [facility] [address] [place] [address] * Magnesium (05/12/2024 12:55 PM EDT) Magnesium, Plasma 2.4 1.9 - 2.4 mg/dL 05/12/2024 1:35 PM EDT [facility] Blood Venous blood specimen / Unknown Venipuncture / Unknown 05/12/2024 12:55 PM EDT 05/12/2024 1:04 PM EDT us Christi Sherman APRN LAB BLOOD ORDERABLES Final Result Performing Organization Address City/[facility]/ZIP Co de Phone Number [facility] [address] [place] [address] * (ABNORMAL) Renal function panel (05/12/2024 12:55 PM EDT) Glucose, Plasma 125(H) 74 - 99 mg/dL 05/12/2024 1:35 PM EDT [facility] BUN, Plasma 17 7 - 21 mg/dL 05/12/2024 1:35 PM EDT [facility] Creatinine, Plasma 1.05 0.60 - 1.10 mg/dL 05/12/2024 1:35 PM EDT [facility] BUN/Creatinine Ratio 16 05/12/2024 1:35 PM EDT [facility] Sodium, Plasma 141 136 - 145 mmol/L 05/12/2024 1:35 PM EDT [facility] Potassium, Plasma 3.6 3.6 - 4.9 mmol/L 05/12/2024 1:35 PM EDT [facility] Chloride, Plasma 102 97 - 107 mmol/L 05/12/2024 1:35 PM EDT [facility] CO2, Plasma 25 22 - 29 mmol/L 05/12/2024 1:35 PM EDT [facility] Anion Gap 14 6 - 16 mmol/L 05/12/2024 1:35 PM EDT [facility] Total Calcium, Plasma 8.1(L) 8.9 - 10.2 mg/dL 05/12/2024 1:35 PM EDT [facility] Phosphorus, Plasma 4.0 2.5 - 4.5 mg/dL 05/12/2024 1:35 PM EDT [facility] Albumin, Plasma 2.7(L) 3.5 - 5.2 g/dL 05/12/2024 1:35 PM EDT [facility] eGFRcr 63.3 mL/min/1.7 3m*2 05/12/2024 1:35 PM EDT [facility] Comment:Reported eGFRcr in m L/min/1.73m2 is based the CKD-EPI 2020 equation that does not use a race coefficient. Blood Venous blood specimen / Unknown Venipuncture / Unknown 05/12/2024 12:55 PM EDT 05/12/2024 1:04 PM EDT us Christi Sherman APRN LAB BLOOD ORDERABLES Final Result [facility] [address] [place] [address] * (ABNORMAL) POCT glucose meter (05/12/2024 12:01 PM EDT) Pathologist [facility] POCT Glucose 119(H) 74 - 99 mg/dL 05/12/2024 12:03 PM EDT [facility] Comment:Accuracy of [...] Comment 05/12/2024 12:03 PM EDT [facility] C.O.D. Biller ID Yolanda Peña 12:03 PM EDT [facility] Device ID [id number] 05/12/2024 12:03 PM EDT [facility] Specimen Type POC Venous 05/12/2024 12:03 PM EDT [facility] Blood Venous blood specimen / Unknown 05/12/2024 12:01 PM EDT 05/12/2024 12:03 PM EDT us Maite Austin MD LAB POINT OF CARE TE ST DOCKED DEVICE UNSOLICITED RESULTS Final Result Performing Organization Address City/State/[facility] Co de Phone Number [facility] [address] [place] [address] * (ABNORMAL) POCT glucose meter (05/12/2024 11:59 AM EDT) [facility] POCT Glucose 276(H) 74 - 99 mg/dL [...] 05/12/2024 12:02 PM EDT [facility] C.O.D. Biller ID Yolanda Peña 12:02 PM EDT [facility] Device ID [id number] 05/12/2024 12:02 PM EDT [facility] Specimen Type POC Venous 05/12/2024 12:02 PM EDT [facility] Blood Venous blood specimen / Unknown 05/12/2024 11:59 AM EDT 05/12/2024 12:02 PM EDT us Maite Austin MD LAB POINT OF CARE TE ST DOCKED DEVICE UNSOLICITED RESULTS Final Result [facility] [address] [place] [address] * CT Abdomen Pelvis wo IV Contrast [...] MD on 05/12/2024 2:12 PM Christi Sherman ACCOUNTS RECEIVABLE SPECIALIST IMG CT PROCEDURES Final Re sult * Lactate, venous (05/12/2024 10:12 AM EDT) Pathologist [facility] Lactate, Venous, Whole Blood 1.6 0.5 - 2.2 mmol/L LAB HEMATOLOGY METHOD 05/12/2024 10:18 AM EDT [facility] Blood Venous blood specimen / Unknown Venipuncture / Unknown 05/12/2024 10:12 AM EDT 05/12/2024 10:16 AM EDT us Maite Austin MD LAB BLOOD ORDERABLES Final Resu lt [facility] [address] [place] [address] * (ABNORMAL) POCT glucose meter (05/12/2024 6:57 AM EDT) Pathologist [facility] POCT Glucose 109(H) 74 - 99 mg/dL 05/12/2024 6:59 AM EDT [facility] Comment:Accuracy of a [...] Comment 05/12/2024 6:59 AM EDT [facility] C.O.D. Biller ID Cheryl Mcconnell 05/13/19 6:59 AM EDT [facility] Device ID [id number] 05/12/2024 6:59 AM EDT [facility] Specimen Type POC Capillary 05/12/2024 6:59 AM EDT [facility] Blood Capillary blood specimen / Unknown 05/12/2024 6:57 AM EDT 05/12/2024 6:59 AM EDT us Maite Austin MD LAB POINT OF CARE TE ST DOCKED DEVICE UNSOLICITED RESULTS Final Result [facility] [address] [place] [address] * XR Chest 1 View (05/12/2024 2:33 [...] LAB HEMATOLOGY METHOD 05/12/2024 12:58 AM EDT [facility] pCO2, Venous 36(L) 37 - 52 mmHg LAB HEMATOLOGY METHOD 05/12/2024 12:58 AM EDT [facility] pO2, Venous 45(H) 25 - 40 mmHg LAB HEMATOLOGY METHOD 05/12/2024 12:58 AM EDT [facility] SO2, Measured, Venous 82(H) 65 - 80 % LAB HEMATOLOGY METHOD 05/12/2024 12:58 AM EDT [facility] Base Excess, Venous 4.4(H) -2.0 - 3.0 mmol/L LAB HEMATOLOGY METHOD 05/12/2024 12:58 AM EDT [facility] Bicarbonate, Calculated, Venous 28(H) 22 - 26 mmol/L LAB HEMATOLOGY METHOD 05/12/2024 12:58 AM EDT [facility] Hematocrit, Whole Blood 26.7(L) 34.0 - 45.0 % LAB HEMATOLOGY METHOD 05/12/2024 12:58 AM EDT [facility] Sodium, Whole Blood 140 136 - 145 mmol/L LAB HEMATOLOGY METHOD 05/12/2024 12:58 AM EDT [facility] Potassium, Whole Blood 3.1(L) 3.6 - 4.9 mmol/L LAB HEMATOLOGY METHOD 05/12/2024 12:58 AM EDT [facility] Chloride, Whole Blood 101 97 - 107 mmol/L LAB HEMATOLOGY METHOD 05/12/2024 12:58 AM EDT [facility] Glucose, Whole Blood 101(H) 74 - 99 mg/dL LAB HEMATOLOGY METHOD 05/12/2024 12:58 AM EDT [facility] Lactate, Venous, Whole Blood 1.6 0.5 - 2.2 mmol/L LAB HEMATOLOGY METHOD 05/12/2024 12:58 AM EDT [facility] Ionized Calcium, Whole Blood 4.4(L) 4.6 - 5.1 mg/dL LAB HEMATOLOGY METHOD 05/12/2024 12:58 AM EDT [facility] Blood Venous blood specimen / Unknown 05/12/2024 12:53 AM EDT us Lora Dawn Llanes ACCOUNTS RECEIVABLE SPECIALIST LAB BLOOD ORDERABLES Final Result Performing Organization Address [facility] Co de Phone Number [facility] [address] [place] [address] * (ABNORMAL) Procalcitonin (05/12/2024 12:34 AM EDT) [facility] Procalcitonin, Plasma 2.08(H) <0.09 ng/mL 05/12/2024 2:46 AM EDT [facility] Blood Venous blood specimen / Unknown Venipuncture / Unknown 05/12/2024 12:34 AM EDT 05/12/2024 1:00 AM EDT Narrative [facility] - 05/12/2024 2:46 AM EDT [...] predict 28 day mortality risk. Please consult [email or web address] for more information. Test performed at [facility]. us Lora Llanes ACCOUNTS RECEIVABLE SPECIALIST LAB BLOOD ORDERABLES Final Result Performing Organization Address City/[facility]/ZIP Co de Phone Number [facility] [address] [place] [address] * Lipase (05/12/2024 12:34 AM EDT) Lipase, Plasma 55 19 - 63 U/L 05/12/2024 2:46 AM EDT [facility] Blood Venous blood specimen / Unknown Venipuncture / Unknown 05/12/2024 12:34 AM EDT 05/12/2024 1:00 AM EDT us Lora Llanes ACCOUNTS RECEIVABLE SPECIALIST LAB BLOOD ORDERABLES Final Result [facility] [address] [place] [address] * (ABNORMAL) Basic metabolic panel (05/12/2024 12:34 AM EDT) Pathologist [facility] Glucose, Plasma 102(H) 74 - 99 mg/dL 05/12/2024 2:46 AM EDT [facility] BUN, Plasma 21 7 - 21 mg/dL 05/12/2024 2:46 AM EDT [facility] Creatinine, Plasma 1.13(H) 0.60 - 1.10 mg/dL 05/12/2024 2:46 AM EDT [facility] BUN/Creatinine Ratio 19 05/12/2024 2:46 AM EDT [facility] Sodium, Plasma 141 136 - 145 mmol/L 05/12/2024 2:46 AM EDT [facility] Potassium, Plasma 3.3(L) 3.6 - 4.9 mmol/L 05/12/2024 2:46 AM EDT [facility] Chloride, Plasma 103 97 - 107 mmol/L 05/12/2024 2:46 AM EDT [facility] CO2, Plasma 23 22 - 29 mmol/L 05/12/2024 2:46 AM EDT [facility] Anion Gap 15 6 - 16 mmol/L 05/12/2024 2:46 AM EDT [facility] Total Calcium, Plasma 8.3(L) 8.9 - 10.2 mg/dL 05/12/2024 2:46 AM EDT [facility] eGFRcr 57.9 mL/min/1.7 3m*2 05/12/2024 2:46 AM EDT [facility] Comment:Reported eGFRcr in m L/min/1.73m2 is based the CKD-EPI 2020 equation that does not use a race coefficient. Blood Venous blood specimen / Unknown Venipuncture / Unknown 05/12/2024 12:34 AM EDT 05/12/2024 1:00 AM EDT us Maite Austin MD LAB BLOOD ORDERABLES Final Resu lt [facility] [address] [place] [address] * (ABNORMAL) Hemogram (CBC) (05/12/2024 12:34 AM EDT) WBC Count 32.60(H) 3.70 - 10.30 10*3/uL LAB HEMATOLOGY METHOD 05/12/2024 1:08 AM EDT [facility] RBC Count 2.77(L) 3.90 - 5.20 10*6/uL LAB HEMATOLOGY METHOD 05/12/2024 1:08 AM EDT [facility] HGB 8.4(L) 11.2 - 15.7 g/dL LAB HEMATOLOGY METHOD 05/12/2024 1:08 AM EDT [facility] HCT 23.9(L) 34.0 - 45.0 % LAB HEMATOLOGY METHOD 05/12/2024 1:08 AM EDT [facility] Platelet Count 184 155 - 369 10*3/uL LAB HEMATOLOGY METHOD 05/12/2024 1:08 AM EDT [facility] MCV 86 79 - 98 fL LAB HEMATOLOGY METHOD 05/12/2024 1:08 AM EDT [facility] MCH 30.3 26.0 - 32.0 pg LAB HEMATOLOGY METHOD 05/12/2024 1:08 AM EDT [facility] MCHC 35.1 30.7 - 35.5 g/dL LAB HEMATOLOGY METHOD 05/12/2024 1:08 AM EDT [facility] RDW 15.2(H) 11.5 - 14.5 % LAB HEMATOLOGY METHOD 05/12/2024 1:08 AM EDT [facility] MPV 11.4 8.8 - 12.5 fL LAB HEMATOLOGY METHOD 05/12/2024 1:08 AM EDT [facility] nRBC 0.4(H) <=0.0 per 100 WBCs LAB HEMATOLOGY METHOD 05/12/2024 1:08 AM EDT [facility] Blood Venous blood specimen / Unknown Venipuncture / Unknown 05/12/2024 12:34 AM EDT 05/12/2024 1:02 AM EDT us Maite Austin MD LAB BLOOD ORDERABLES Final Resu lt [facility] [address] [place] [address] * Phosphorus (05/12/2024 12:34 AM EDT) Phosphorus, Plasma 3.9 2.5 - 4.5 mg/dL 05/12/2024 2:46 AM EDT [facility] Blood Venous blood specimen / Unknown Venipuncture / Unknown 05/12/2024 12:34 AM EDT 05/12/2024 1:00 AM EDT us Lora Llanes APRN LAB BLOOD ORDERABLES Final Result Performing Organization Address City/[facility]/ZIP Co de Phone Number [facility] [address] [place] [address] * Magnesium, Plasma (05/12/2024 12:34 AM EDT) Magnesium, Plasma 2.0 1.9 - 2.4 mg/dL 05/12/2024 2:46 AM EDT [facility] Blood Venous blood specimen / Unknown Venipuncture / Unknown 05/12/2024 12:34 AM EDT 05/12/2024 1:00 AM EDT us Lora Llanes APRN LAB BLOOD ORDERABLES Final Result [facility] [address] [place] [address] * (ABNORMAL) POCT glucose meter (05/12/2024 12:22 AM EDT) POCT Glucose 102(H) 74 - 99 mg/dL 05/12/2024 12:23 AM EDT [facility] Comment:Accuracy of [...] for testing. Comment 05/12/2024 12:23 AM EDT [facility] C.O.D. Biller ID Cheryl Mcconnell 05/13/19 12:23 AM EDT [facility] Device ID [id number] 05/12/2024 12:23 AM EDT [facility] Specimen Type POC Capillary 05/12/2024 12:23 AM EDT [facility] Blood Capillary blood specimen / Unknown 05/12/2024 12:22 AM EDT 05/12/2024 12:23 AM EDT us Maite Austin MD LAB POINT OF CARE TE ST DOCKED DEVICE UNSOLICITED RESULTS Final Result Performing Organization Address City/State/[facility] Co de Phone Number [facility] [address] [place], [place] [id number] * XR Abdomen 1 View (05/11/2024 11:53 [...] MD on 05/12/2024 12:00 AM us Lora Llanes ACCOUNTS RECEIVABLE SPECIALIST IMG XR PROCEDURES Final Res ult * (ABNORMAL) POCT glucose meter (05/11/2024 6:09 PM EDT) Pathologist [facility] POCT Glucose 113(H) 74 - 99 mg/dL 05/11/2024 6:11 PM EDT [facility] Comment:Accuracy of [...] Comment 05/11/2024 6:11 PM EDT [facility] C.O.D. Biller ID [place], 05/12/19 6:11 PM EDT [facility] Device ID [id number] 05/11/2024 6:11 PM EDT [facility] Specimen Type POC Capillary 05/11/2024 6:11 PM EDT [facility] Blood Capillary blood specimen / Unknown 05/11/2024 6:09 PM EDT 05/11/2024 6:11 PM EDT us Maite Austin MD LAB POINT OF CARE TE ST DOCKED DEVICE UNSOLICITED RESULTS Final Result [facility] [address] [place] [address] * Magnesium (05/11/2024 2:02 PM EDT) Magnesium, Plasma 2.2 1.9 - 2.4 mg/dL 05/11/2024 2:49 PM EDT [facility] Blood Venous blood specimen / Unknown Venipuncture / Unknown 05/11/2024 2:02 PM EDT 05/11/2024 2:20 PM EDT us Maiet Austin MD LAB BLOOD ORDERABLES Final Resu lt [facility] [address] [place] [address] * (ABNORMAL) Renal function panel (05/11/2024 2:02 PM EDT) Glucose, Plasma 89 74 - 99 mg/dL 05/11/2024 2:49 PM EDT [facility] BUN, Plasma 22(H) 7 - 21 mg/dL 05/11/2024 2:49 PM EDT [facility] Creatinine, Plasma 1.18(H) 0.60 - 1.10 mg/dL 05/11/2024 2:49 PM EDT [facility] BUN/Creatinine Ratio 19 05/11/2024 2:49 PM EDT [facility] Sodium, Plasma 142 136 - 145 mmol/L 05/11/2024 2:49 PM EDT [facility] Potassium, Plasma 3.9 3.6 - 4.9 mmol/L 05/11/2024 2:49 PM EDT [facility] Chloride, Plasma 106 97 - 107 mmol/L 05/11/2024 2:49 PM EDT [facility] CO2, Plasma 24 22 - 29 mmol/L 05/11/2024 2:49 PM EDT [facility] Anion Gap 12 6 - 16 mmol/L 05/11/2024 2:49 PM EDT [facility] Total Calcium, Plasma 9.1 8.9 - 10.2 mg/dL 05/11/2024 2:49 PM EDT [facility] Phosphorus, Plasma 4.4 2.5 - 4.5 mg/dL 05/11/2024 2:49 PM EDT [facility] Albumin, Plasma 3.0(L) 3.5 - 5.2 g/dL 05/11/2024 2:49 PM EDT [facility] eGFRcr 55.0 mL/min/1.7 3m*2 05/11/2024 2:49 PM EDT [facility] Comment:Reported eGFRcr in m L/min/1.73m2 is based the CKD-EPI 2020 equation that does not use a race coefficient. Blood Venous blood specimen / Unknown Venipuncture / Unknown 05/11/2024 2:02 PM EDT 05/11/2024 2:20 PM EDT us Maite Austin MD LAB BLOOD ORDERABLES Final Resu lt Performing Organization Address [facility] Co de Phone Number [facility] [address] [place] [address] * (ABNORMAL) POCT glucose meter (05/11/2024 11:48 AM EDT) POCT Glucose 200(H) 74 - 99 mg/dL 05/11/2024 11:50 AM EDT [facility] Comment:Accuracy of a [...] 05/11/2024 11:50 AM EDT [facility] C.O.D. Biller ID [email or web address], 05/12/19 11:50 AM EDT [facility] Device ID [id number] 05/11/2024 11:50 AM EDT [facility] Specimen Type POC Capillary 05/11/2024 11:50 AM EDT [facility] Blood Capillary blood specimen / Unknown 05/11/2024 11:48 AM EDT 05/11/2024 11:50 AM EDT us Maite Austin MD LAB POINT OF CARE TE ST DOCKED DEVICE UNSOLICITED RESULTS Final Result Performing Organization Address City/[facility] Co de Phone Number [facility] [address] [place] [address] * (ABNORMAL) POCT glucose meter (05/11/2024 11:14 AM EDT) [facility] POCT Glucose 69(L) 74 - 99 mg/dL 05/11/2024 11:43 AM EDT [facility] Comment:Accuracy of a [...] Comment 05/11/2024 11:43 AM EDT [facility] C.O.D. Biller ID Mayco, 05/12/19 11:43 AM EDT [facility] Device ID [id number] 05/11/2024 11:43 AM EDT [facility] Specimen Type POC Capillary 05/11/2024 11:43 AM EDT [facility] Blood Capillary blood specimen / Unknown 05/11/2024 11:14 AM EDT 05/11/2024 11:43 AM EDT us Maite Austin MD LAB POINT OF CARE TE ST DOCKED DEVICE UNSOLICITED RESULTS Final Result [facility] [address] [place] [address] * Phosphorus (05/11/2024 2:38 AM EDT) [facility] Phosphorus, Plasma 3.8 2.5 - 4.5 mg/dL 05/11/2024 3:16 AM EDT [facility] Blood Venous blood specimen / Unknown Venipuncture / Unknown 05/11/2024 2:38 AM EDT 05/11/2024 2:46 AM EDT us Lora Llanes APRN LAB BLOOD ORDERABLES Final Result [facility] [address] [place] [address] * (ABNORMAL) Basic metabolic panel (05/11/2024 2:38 AM EDT) Glucose, Plasma 86 74 - 99 mg/dL 05/11/2024 3:16 AM EDT [facility] BUN, Plasma 22(H) 7 - 21 mg/dL 05/11/2024 3:16 AM EDT [facility] Creatinine, Plasma 1.09 0.60 - 1.10 mg/dL 05/11/2024 3:16 AM EDT [facility] BUN/Creatinine Ratio 20 05/11/2024 3:16 AM EDT [facility] Sodium, Plasma 141 136 - 145 mmol/L 05/11/2024 3:16 AM EDT [facility] Potassium, Plasma 3.7 3.6 - 4.9 mmol/L 05/11/2024 3:16 AM EDT [facility] Chloride, Plasma 106 97 - 107 mmol/L 05/11/2024 3:16 AM EDT [facility] CO2, Plasma 24 22 - 29 mmol/L 05/11/2024 3:16 AM EDT [facility] Anion Gap 11 6 - 16 mmol/L 05/11/2024 3:16 AM EDT [facility] Total Calcium, Plasma 7.8(L) 8.9 - 10.2 mg/dL 05/11/2024 3:16 AM EDT [facility] eGFRcr 60.5 mL/min/1.7 3m*2 05/11/2024 3:16 AM EDT [facility] Comment:Reported eGFRcr in m L/min/1.73m2 is based the CKD-EPI 2020 equation that does not use a race coefficient. Blood Venous blood specimen / Unknown Venipuncture / Unknown 05/11/2024 2:38 AM EDT 05/11/2024 2:46 AM EDT us Maite Austin MD LAB BLOOD ORDERABLES Final Resu lt [facility] [address] [place] [address] * (ABNORMAL) Hemogram (CBC) (05/11/2024 2:38 AM EDT) WBC Count 23.95(H) 3.70 - 10.30 10*3/uL LAB HEMATOLOGY METHOD 05/11/2024 2:54 AM EDT [facility] RBC Count 2.92(L) 3.90 - 5.20 10*6/uL LAB HEMATOLOGY METHOD 05/11/2024 2:54 AM EDT [facility] HGB 8.6(L) 11.2 - 15.7 g/dL LAB HEMATOLOGY METHOD 05/11/2024 2:54 AM EDT [facility] HCT 25.0(L) 34.0 - 45.0 % LAB HEMATOLOGY METHOD 05/11/2024 2:54 AM EDT [facility] Platelet Count 146(L) 155 - 369 10*3/uL LAB HEMATOLOGY METHOD 05/11/2024 2:54 AM EDT [facility] MCV 86 79 - 98 fL LAB HEMATOLOGY METHOD 05/11/2024 2:54 AM EDT [facility] MCH 29.5 26.0 - 32.0 pg LAB HEMATOLOGY METHOD 05/11/2024 2:54 AM EDT [facility] MCHC 34.4 30.7 - 35.5 g/dL LAB HEMATOLOGY METHOD 05/11/2024 2:54 AM EDT [facility] RDW 15.6(H) 11.5 - 14.5 % LAB HEMATOLOGY METHOD 05/11/2024 2:54 AM EDT [facility] MPV 10.6 8.8 - 12.5 fL LAB HEMATOLOGY METHOD 05/11/2024 2:54 AM EDT [facility] nRBC 0.9(H) <=0.0 per 100 WBCs LAB HEMATOLOGY METHOD 05/11/2024 2:54 AM EDT [facility] Blood Venous blood specimen / Unknown Venipuncture / Unknown 05/11/2024 2:38 AM EDT 05/11/2024 2:47 AM EDT us Maite Austin MD LAB BLOOD ORDERABLES Final Resu lt [facility] [address] [place] [address] * (ABNORMAL) Blood gas panel, venous (05/11/2024 2:38 AM EDT) pH, Venous 7.46(H) 7.32 - 7.43 LAB HEMATOLOGY METHOD 05/11/2024 2:56 AM EDT [facility] pCO2, Venous 37 37 - 52 mmHg LAB HEMATOLOGY METHOD 05/11/2024 2:56 AM EDT [facility] pO2, Venous 65(H) 25 - 40 mmHg LAB HEMATOLOGY METHOD 05/11/2024 2:56 AM EDT [facility] SO2, Measured, Venous 94(H) 65 - 80 % LAB HEMATOLOGY METHOD 05/11/2024 2:56 AM EDT [facility] Base Excess, Venous 2.0 -2.0 - 3.0 mmol/L LAB HEMATOLOGY METHOD 05/11/2024 2:56 AM EDT [facility] Bicarbonate, Calculated, Venous 26 22 - 26 mmol/L LAB HEMATOLOGY METHOD 05/11/2024 2:56 AM EDT [facility] Hematocrit, Whole Blood 25.3(L) 34.0 - 45.0 % LAB HEMATOLOGY METHOD 05/11/2024 2:56 AM EDT [facility] Sodium, Whole Blood 143 136 - 145 mmol/L LAB HEMATOLOGY METHOD 05/11/2024 2:56 AM EDT [facility] Potassium, Whole Blood 3.4(L) 3.6 - 4.9 mmol/L LAB HEMATOLOGY METHOD 05/11/2024 2:56 AM EDT [facility] Chloride, Whole Blood 106 97 - 107 mmol/L LAB HEMATOLOGY METHOD 05/11/2024 2:56 AM EDT [facility] Glucose, Whole Blood 82 74 - 99 mg/dL LAB HEMATOLOGY METHOD 05/11/2024 2:56 AM EDT [facility] Lactate, Venous, Whole Blood 1.2 0.5 - 2.2 mmol/L LAB HEMATOLOGY METHOD 05/11/2024 2:56 AM EDT [facility] Ionized Calcium, Whole Blood 4.2(L) 4.6 - 5.1 mg/dL LAB HEMATOLOGY METHOD 05/11/2024 2:56 AM EDT [facility] Blood Venous blood specimen / Unknown Venipuncture / Unknown 05/11/2024 2:38 AM EDT 05/11/2024 2:52 AM EDT us Lora Seymour Jarbidge ACCOUNTS RECEIVABLE SPECIALIST LAB BLOOD ORDERABLES Final Result [facility] [address] [place] [address] * Magnesium, Plasma (05/11/2024 2:38 AM EDT) Magnesium, Plasma 2.3 1.9 - 2.4 mg/dL 05/11/2024 3:16 AM EDT [facility] Blood Venous blood specimen / Unknown Venipuncture / Unknown 05/11/2024 2:38 AM EDT 05/11/2024 2:46 AM EDT Lora Chinoer ACCOUNTS RECEIVABLE SPECIALIST LAB BLOOD ORDERABLES Final Result Performing Organization Address [facility] Co de Phone Number [facility] [address] [place] [address] * XR Abdomen 1 View (05/11/2024 2:20 [...] with the final edited report. Drafted by Sanay Urbano MD on 05/11/2024 8:44 AM Final report signed by Zahara Berger MD on 05/11/2024 10:08 AM Narrative [...] POCT glucose meter (05/10/2024 8:57 PM EDT) POCT Glucose 102(H) 74 - 99 [...] 05/10/2024 8:59 PM EDT [facility] C.O.D. Biller ID Ernestina Freeman 05/11/19 8:59 PM EDT [facility] Device ID [id number] 05/10/2024 8:59 PM EDT [facility] Specimen Type POC Capillary 05/10/2024 8:59 PM EDT [facility] Blood Capillary blood specimen / Unknown 05/10/2024 8:57 PM EDT 05/10/2024 8:59 PM EDT us Maite Austin MD LAB POINT OF CARE TE ST DOCKED DEVICE UNSOLICITED RESULTS Final Result [facility] [address] [place] [address] * (ABNORMAL) POCT glucose meter (05/10/2024 5:38 PM EDT) [facility] POCT Glucose 100(H) 74 - 99 mg/dL [...] 05/10/2024 5:40 PM EDT [facility] C.O.D. Biller ID Craigel, 05/11/19 5:40 PM EDT [facility] Device ID [id number] 05/10/2024 5:40 PM EDT [facility] Specimen Type POC Capillary 05/10/2024 5:40 PM EDT [facility] Blood Capillary blood specimen / Unknown 05/10/2024 5:38 PM EDT 05/10/2024 5:40 PM EDT Maite Austin MD LAB POINT OF CARE TE ST DOCKED DEVICE UNSOLICITED RESULTS Final Result [facility] [address] [place] [address] * POCT glucose meter (05/10/2024 1:26 PM EDT) [facility] POCT Glucose 92 74 - 99 mg/dL [...] 05/10/2024 1:34 PM EDT [facility] C.O.D. Biller ID ThaiJustinSundeep, 05/11/19 1:34 PM EDT [facility] Device ID [id number] 05/10/2024 1:34 PM EDT [facility] Specimen Type POC Capillary 05/10/2024 1:34 PM EDT [facility] Blood Capillary blood specimen / Unknown 05/10/2024 1:26 PM EDT 05/10/2024 1:34 PM EDT us Maite Austin MD LAB POINT OF CARE TE ST DOCKED DEVICE UNSOLICITED RESULTS Final Result [facility] [address] [place] [id number] * XR Abdomen 1 View (05/10/2024 11:41 [...] Mary Phelps MD on 05/10/2024 10:02 AM us Maite Austin MD IMG XR PROCEDURES Final Result * Phosphorus (05/10/2024 5:41 AM EDT) Pathologist [facility] Phosphorus, Plasma 3.9 2.5 - 4.5 mg/dL 05/10/2024 6:23 AM EDT [facility] Blood Venous blood specimen / Unknown Venipuncture / Unknown 05/10/2024 5:41 AM EDT 05/10/2024 5:53 AM EDT us Lora Llanes ACCOUNTS RECEIVABLE SPECIALIST LAB BLOOD ORDERABLES Final Result [facility] [address] [place] [address] * (ABNORMAL) Blood gas panel, venous (05/10/2024 5:41 AM EDT) Pathologist [facility] pH, Venous 7.44(H) 7.32 - 7.43 LAB HEMATOLOGY METHOD 05/10/2024 5:49 AM EDT [facility] pCO2, Venous 39 37 - 52 mmHg LAB HEMATOLOGY METHOD 05/10/2024 5:49 AM EDT [facility] pO2, Venous 34 25 - 40 mmHg LAB HEMATOLOGY METHOD 05/10/2024 5:49 AM EDT [facility] SO2, Measured, Venous 62(L) 65 - 80 % LAB HEMATOLOGY METHOD 05/10/2024 5:49 AM EDT [facility] Base Excess, Venous 1.8 -2.0 - 3.0 mmol/L LAB HEMATOLOGY METHOD 05/10/2024 5:49 AM EDT [facility] Bicarbonate, Calculated, Venous 26 22 - 26 mmol/L LAB HEMATOLOGY METHOD 05/10/2024 5:49 AM EDT [facility] Hematocrit, Whole Blood 27.1(L) 34.0 - 45.0 % LAB HEMATOLOGY METHOD 05/10/2024 5:49 AM EDT [facility] Sodium, Whole Blood 143 136 - 145 mmol/L LAB HEMATOLOGY METHOD 05/10/2024 5:49 AM EDT [facility] Potassium, Whole Blood 3.8 3.6 - 4.9 mmol/L LAB HEMATOLOGY METHOD 05/10/2024 5:49 AM EDT [facility] Chloride, Whole Blood 108(H) 97 - 107 mmol/L LAB HEMATOLOGY METHOD 05/10/2024 5:49 AM EDT [facility] Glucose, Whole Blood 97 74 - 99 mg/dL LAB HEMATOLOGY METHOD 05/10/2024 5:49 AM EDT [facility] Lactate, Venous, Whole Blood 1.8 0.5 - 2.2 mmol/L LAB HEMATOLOGY METHOD 05/10/2024 5:49 AM EDT [facility] Ionized Calcium, Whole Blood 4.2(L) 4.6 - 5.1 mg/dL LAB HEMATOLOGY METHOD 05/10/2024 5:49 AM EDT [facility] Blood Venous blood specimen / Unknown Venipuncture / Unknown 05/10/2024 5:41 AM EDT 05/10/2024 5:48 AM EDT us Lora Llanes APRN LAB BLOOD ORDERABLES Final Result [facility] [address] [place] [address] * (ABNORMAL) Magnesium, Plasma (05/10/2024 5:41 AM EDT) Magnesium, Plasma 2.5(H) 1.9 - 2.4 mg/dL 05/10/2024 6:23 AM EDT [facility] Blood Venous blood specimen / Unknown Venipuncture / Unknown 05/10/2024 5:41 AM EDT 05/10/2024 5:53 AM EDT Lora Llanes APRN LAB BLOOD ORDERABLES Final Result [facility] [address] [place] [address] * (ABNORMAL) Hepatic function panel (05/10/2024 5:41 AM EDT) Conjugated Bilirubin, Plasma 0.2 <=0.3 mg/dL 05/10/2024 6:23 AM EDT [facility] Alkaline Phosphatase, Plasma 112(H) 35 - 104 U/L 05/10/2024 6:23 AM EDT [facility] Total Bilirubin, Plasma 0.5 0.2 - 1.1 mg/dL 05/10/2024 6:23 AM EDT [facility] Albumin, Plasma 2.7(L) 3.5 - 5.2 g/dL 05/10/2024 6:23 AM EDT [facility] Total Protein 5.7(L) 6.3 - 7.9 g/dL 05/10/2024 6:23 AM EDT [facility] ALT, Plasma 45(H) 10 - 35 U/L 05/10/2024 6:23 AM EDT [facility] AST, Plasma 201(H) 10 - 35 U/L 05/10/2024 6:23 AM EDT [facility] Blood Venous blood specimen / Unknown Venipuncture / Unknown 05/10/2024 5:41 AM EDT 05/10/2024 5:53 AM EDT us Maite Austin MD LAB BLOOD ORDERABLES Final Resu lt [facility] [address] [place] [address] * (ABNORMAL) Basic metabolic panel (05/10/2024 5:41 AM EDT) Glucose, Plasma 101(H) 74 - 99 mg/dL 05/10/2024 6:23 AM EDT [facility] BUN, Plasma 28(H) 7 - 21 mg/dL 05/10/2024 6:23 AM EDT [facility] Creatinine, Plasma 1.28(H) 0.60 - 1.10 mg/dL 05/10/2024 6:23 AM EDT [facility] BUN/Creatinine Ratio 22 05/10/2024 6:23 AM EDT [facility] Sodium, Plasma 143 136 - 145 mmol/L 05/10/2024 6:23 AM EDT [facility] Potassium, Plasma 4.0 3.6 - 4.9 mmol/L 05/10/2024 6:23 AM EDT [facility] Chloride, Plasma 108(H) 97 - 107 mmol/L 05/10/2024 6:23 AM EDT [facility] CO2, Plasma 24 22 - 29 mmol/L 05/10/2024 6:23 AM EDT [facility] Anion Gap 11 6 - 16 mmol/L 05/10/2024 6:23 AM EDT [facility] Total Calcium, Plasma 7.8(L) 8.9 - 10.2 mg/dL 05/10/2024 6:23 AM EDT [facility] eGFRcr 49.9 mL/min/1.7 3m*2 05/10/2024 6:23 AM EDT [facility] Comment:Reported eGFRcr in m L/min/1.73m2 is based the CKD-EPI 2020 equation that does not use a race coefficient. Blood Venous blood specimen / Unknown Venipuncture / Unknown 05/10/2024 5:41 AM EDT 05/10/2024 5:53 AM EDT us Maite Austin MD LAB BLOOD ORDERABLES Final Resu lt [facility] [address] [place] [address] * (ABNORMAL) Hemogram (CBC) (05/10/2024 5:41 AM EDT) WBC Count 22.88(H) 3.70 - 10.30 10*3/uL LAB HEMATOLOGY METHOD 05/10/2024 6:05 AM EDT [facility] RBC Count 3.06(L) 3.90 - 5.20 10*6/uL LAB HEMATOLOGY METHOD 05/10/2024 6:05 AM EDT [facility] HGB 9.0(L) 11.2 - 15.7 g/dL LAB HEMATOLOGY METHOD 05/10/2024 6:05 AM EDT [facility] HCT 26.4(L) 34.0 - 45.0 % LAB HEMATOLOGY METHOD 05/10/2024 6:05 AM EDT [facility] Platelet Count 149(L) 155 - 369 10*3/uL LAB HEMATOLOGY METHOD 05/10/2024 6:05 AM EDT [facility] MCV 86 79 - 98 fL LAB HEMATOLOGY METHOD 05/10/2024 6:05 AM EDT [facility] MCH 29.4 26.0 - 32.0 pg LAB HEMATOLOGY METHOD 05/10/2024 6:05 AM EDT [facility] MCHC 34.1 30.7 - 35.5 g/dL LAB HEMATOLOGY METHOD 05/10/2024 6:05 AM EDT [facility] RDW 15.7(H) 11.5 - 14.5 % LAB HEMATOLOGY METHOD 05/10/2024 6:05 AM EDT [facility] MPV 11.8 8.8 - 12.5 fL LAB HEMATOLOGY METHOD 05/10/2024 6:05 AM EDT [facility] nRBC 0.6(H) <=0.0 per 100 WBCs LAB HEMATOLOGY METHOD 05/10/2024 6:05 AM EDT [facility] Blood Venous blood specimen / Unknown Venipuncture / Unknown 05/10/2024 5:41 AM EDT 05/10/2024 5:56 AM EDT us Maite Austin MD LAB BLOOD ORDERABLES Final Resu lt [facility] [address] [place] [address] * (ABNORMAL) POCT glucose meter (05/10/2024 12:09 AM EDT) [facility] POCT Glucose 112(H) 74 - 99 mg/dL [...] for testing. Comment 05/10/2024 12:10 AM EDT [facility] C.O.D. Biller ID Betty Young 03/27/2 025 12:10 AM EDT [facility] Device ID [id number] 05/10/2024 12:10 AM EDT [facility] Specimen Type POC Capillary 05/10/2024 12:10 AM EDT [facility] Blood Capillary blood specimen / Unknown 05/10/2024 12:09 AM EDT 05/10/2024 12:10 AM EDT us Maite Austin MD LAB POINT OF CARE TE ST DOCKED DEVICE UNSOLICITED RESULTS Final Result Performing Organization Address City/[facility]/ZIP Co de Phone Number [facility] [address] [place] [address] * POCT glucose meter (05/09/2024 5:15 PM EDT) [facility] POCT Glucose 89 74 - 99 mg/dL [...] 05/09/2024 5:17 PM EDT [facility] C.O.D. Biller ID Luca Em 05/10/19 5:17 PM EDT [facility] Device ID [id number] 05/09/2024 5:17 PM EDT [facility] Specimen Type POC Capillary 05/09/2024 5:17 PM EDT [facility] Blood Capillary blood specimen / Unknown 05/09/2024 5:15 PM EDT 05/09/2024 5:17 PM EDT us Maite Austin MD LAB POINT OF CARE TE ST DOCKED DEVICE UNSOLICITED RESULTS Final Result Performing Organization Address City/[facility]/ZIP Co de Phone Number [facility] [address] [place] [address] * CT Abdomen Pelvis wo IV Contrast [...] MD on 05/09/2024 5:28 PM Reyna Obregon ACCOUNTS RECEIVABLE SPECIALIST IMG CT PROCEDURES Final R esult * [...] Abdominal radiograph 3 hours prior FINDINGS: Limited [id number] abdominal radiograph for the purpose of locating [...] Abdominal radiograph 3 hours prior FINDINGS: Limited [id number] abdominal radiograph for the purpose of locatingtube [...] Gurdeep Adam MD on 05/09/2024 4:17 PM Maite Austin MD IMG XR PROCEDURES Final Result * (ABNORMAL) POCT venous blood gas gem (05/09/2024 3:15 PM EDT) pH, Venous 7.42 7.32 - 7.43 05/09/2024 3:17 PM EDT [facility] pCO2, Venous 44 37 - 52 mm Hg 05/09/2024 3:17 PM EDT [facility] pO2, Venous <30 25 - 40 mm Hg 05/09/2024 3:17 PM EDT [facility] SO2, Venous 24(L) 65 - 80 % 05/09/2024 3:17 PM EDT [facility] Base Excess/Deficit, Venous 3.6(H) -2 - 3 mmol/L 05/09/2024 3:17 PM EDT [facility] HCO3, Venous 28.5(H) 22 - 26 mmol/L 05/09/2024 3:17 PM EDT [facility] Hemoglobin, Venous 9.7(L) 11.2 - 15.7 g/dL 05/09/2024 3:17 PM EDT [facility] Hematocrit, Venous 29.0(L) 34.0 - 45.0 % 05/09/2024 3:17 PM EDT [facility] Sodium, Venous 143 136 - 145 mmol/L 05/09/2024 3:17 PM EDT [facility] Potassium, Venous 4.1 3.6 - 4.9 mmol/L 05/09/2024 3:17 PM EDT [facility] POCT Chloride, Venous 107 97 - 107 mmol/L 05/09/2024 3:17 PM EDT [facility] Glucose, Venous 89 74 - 99 mg/dL 05/09/2024 3:17 PM EDT [facility] Ionized Calcium, Venous 4.4(L) 4.6 - 5.1 mg/dL 05/09/2024 3:17 PM EDT [facility] Lactate, Venous 3.3(H) 0.5 - 2.2 mmol/L 05/09/2024 3:17 PM EDT [facility] Body Temperature 37.0 Celsius 05/09/2024 3:17 PM EDT [facility] pH, Temp Corrected, Venous 7.42 7.32 - 7.43 05/09/2024 3:17 PM EDT [facility] pCO2, Temp Corrected, Venous 44 37 - 52 mm Hg 05/09/2024 3:17 PM EDT [facility] C.O.D. Biller COLBY Alka Corona 05/09/2024 3:17 PM EDT [facility] Acknowledged, Notified By RN 05/09/2024 3:17 PM EDT [facility] Critical Notify Time 1515 05/09/2024 3:17 PM EDT [facility] Critical Readback Y 05/09/2024 3:17 PM EDT [facility] Blood, Venous Whole blood specimen / Unknown 05/09/2024 3:15 PM EDT 05/09/2024 3:17 PM EDT Maite Austin MD LAB POINT OF CARE TE ST DOCKED DEVICE UNSOLICITED RESULTS Final Result Performing Organization Address City/[facility] Co de Phone Number [facility] [address] [place] [address] * POCT glucose meter (05/09/2024 2:21 PM EDT) [facility] POCT Glucose 93 74 - 99 mg/dL 05/09/2024 2:22 PM EDT [facility] Comment:Accuracy of [...] for testing. Comment 05/09/2024 2:22 PM EDT [facility] C.O.D. Biller ID Luca Em 05/10/19 2:22 PM EDT [facility] Device ID [id number] 05/09/2024 2:22 PM EDT [facility] Specimen Type POC Venous 05/09/2024 2:22 PM EDT [facility] Blood Venous blood specimen / Unknown 05/09/2024 2:21 PM EDT 05/09/2024 2:22 PM EDT us Maite Austin MD LAB POINT OF CARE TE ST DOCKED DEVICE UNSOLICITED RESULTS Final Result Performing Organization Address City/[facility] Co de Phone Number [facility] [address] [place] [address] * (ABNORMAL) Hemoglobin and hematocrit, blood (05/09/2024 2:21 PM EDT) [facility] HGB 9.8(L) 11.2 - 15.7 g/dL LAB HEMATOLOGY METHOD 05/09/2024 3:09 PM EDT [facility] HCT 28.0(L) 34.0 - 45.0 % LAB HEMATOLOGY METHOD 05/09/2024 3:09 PM EDT [facility] Blood Venous blood specimen / Unknown Venipuncture / Unknown 05/09/2024 2:21 PM EDT 05/09/2024 2:27 PM EDT us Maite Austin MD LAB BLOOD ORDERABLES Final Resu lt [facility] [address] [place] [address] * POCT glucose meter (05/09/2024 12:42 PM EDT) [facility] POCT Glucose 97 74 - 99 mg/dL [...] Comment 05/09/2024 12:43 PM EDT [facility] C.O.D. Biller ID GabriellaKatie 05/09/2024 12:43 PM EDT [facility] Device ID [id number] 05/09/2024 12:43 PM EDT [facility] Specimen Type POC Venous 05/09/2024 12:43 PM EDT [facility] Blood Venous blood specimen / Unknown 05/09/2024 12:42 PM EDT 05/09/2024 12:43 PM EDT us Maite Austin MD LAB POINT OF CARE TE ST DOCKED DEVICE UNSOLICITED RESULTS Final Result Performing Organization Address City/[facility]/ZIP Co de Phone Number [facility] [address] [place] [address] * XR Abdomen 1 View (05/09/2024 12:21 [...] MD on 05/09/2024 1:59 PM Reyna Obregon APRN IMG XR PROCEDURES Final R esult * (ABNORMAL) POCT glucose meter (05/09/2024 12:18 PM EDT) POCT Glucose 105(H) 74 - 99 mg/dL 05/09/2024 12:20 PM EDT [facility] Comment:Accuracy of a glucos e result [...] for testing. Comment 05/09/2024 12:20 PM EDT HEALTH[facility]ARE [facility] C.O.D. Biller ID Luca Em 05/10/19 12:20 PM EDT HEALTHCARE LAB Device ID [id number] 05/09/2024 12:20 PM EDT [facility] Specimen Type POC Venous 05/09/2024 12:20 PM EDT [facility] Blood Venous blood specimen / Unknown 05/09/2024 12:18 PM EDT 05/09/2024 12:20 PM EDT us Maite Austin MD LAB POINT OF CARE TE ST DOCKED DEVICE UNSOLICITED RESULTS Final Result Performing Organization Address City/State/[facility] Co de Phone Number HEALTHCARE LAB [address] [place] [address] * (ABNORMAL) POCT glucose meter (05/09/2024 12:06 PM EDT) [facility] POCT Glucose 124(H) 74 - 99 mg/dL [...] Comment 05/09/2024 12:19 PM EDT [facility]ALTH[facility]ARE [facility] C.O.D. Biller ID Luca Em 05/10/19 12:19 PM EDT HEALTH[facility]ARE LAB Device ID [id number] 05/09/2024 12:19 PM EDT [facility] Specimen Type POC Capillary 05/09/2024 12:19 PM EDT [facility] Blood Capillary blood specimen / Unknown 05/09/2024 12:06 PM EDT 05/09/2024 12:19 PM EDT us Maite Austin MD LAB POINT OF CARE TE ST DOCKED DEVICE UNSOLICITED RESULTS Final Result [facility] [address] [place] [address] * (ABNORMAL) POCT glucose meter (05/09/2024 12:05 PM EDT) [facility] POCT Glucose 198(H) 74 - 99 mg/dL 05/09/2024 12:06 PM EDT [facility] Comment:Accuracy of [...] Comment 05/09/2024 12:06 PM EDT HEALTH[facility] LAB C.O.D. Biller ID Luca Em 05/10/19 12:06 PM EDT HEALTHCARE LAB Device ID [id number] 05/09/2024 12:06 PM EDT HEALTHCARE LAB Specimen Type POC Capillary 05/09/2024 12:06 PM EDT [facility] Blood Capillary blood specimen / Unknown 05/09/2024 12:05 PM EDT 05/09/2024 12:06 PM EDT Maite Austin MD LAB POINT OF CARE TE ST DOCKED DEVICE UNSOLICITED RESULTS Final Result Performing Organization Address City/[facility]/ZIP Co de Phone Number [facility] [address] [place] [address] * (ABNORMAL) POCT glucose meter (05/09/2024 12:02 PM EDT) [facility] POCT Glucose 42(LL) 74 - 99 mg/dL 05/09/2024 12:03 PM EDT [facility] Comment:Accuracy of [...] for testing. Comment 05/09/2024 12:03 PM EDT [facility] C.O.D. Biller ID Luca Em 05/10/19 12:03 PM EDT [facility] Device ID [id number] 05/09/2024 12:03 PM EDT [facility] Specimen Type POC Capillary 05/09/2024 12:03 PM EDT [facility] Blood Capillary blood specimen / Unknown 05/09/2024 12:02 PM EDT 05/09/2024 12:03 PM EDT Maite Austin MD LAB POINT OF CARE TE ST DOCKED DEVICE UNSOLICITED RESULTS Final Result Performing Organization Address City/[facility] Co de Phone Number [facility] [address] [place] [address] * (ABNORMAL) POCT glucose meter (05/09/2024 12:00 PM EDT) [facility] POCT Glucose 37(LL) 74 - 99 mg/dL [...] for testing. Comment 05/09/2024 12:01 PM EDT [facility] C.O.D. Biller ID Luca Em 05/10/19 12:01 PM EDT [facility] Device ID [id number] 05/09/2024 12:01 PM EDT [facility] Specimen Type POC Capillary 05/09/2024 12:01 PM EDT [facility] Blood Capillary blood specimen / Unknown 05/09/2024 12:00 PM EDT 05/09/2024 12:01 PM EDT Maite Austin MD LAB POINT OF CARE TE ST DOCKED DEVICE UNSOLICITED RESULTS Final Result Performing Organization Address City/[facility]/ZIP Co de Phone Number [facility] [address] [place] [address] * POCT glucose meter (05/09/2024 11:32 AM EDT) Pathologist [facility] POCT Glucose 77 74 - 99 mg/dL 05/09/2024 11:33 AM EDT [facility] Comment:Accuracy of a [...] Comment 05/09/2024 11:33 AM EDT [facility] C.O.D. Biller ID Luca Em 05/10/19 11:33 AM EDT [facility] Device ID [id number] 05/09/2024 11:33 AM EDT [facility] Specimen Type POC Venous 05/09/2024 11:33 AM EDT [facility] Blood Venous blood specimen / Unknown 05/09/2024 11:32 AM EDT 05/09/2024 11:33 AM EDT us Maite Austin MD LAB POINT OF CARE TE ST DOCKED DEVICE UNSOLICITED RESULTS Final Result Performing Organization Address City/[facility]/ZIP Co de Phone Number [facility] [address] [place] [address] * BETA HYDROXYBUTYRIC ACID (05/09/2024 11:30 AM EDT) Beta-Hydroxybut yric Acid, Plasma 0.1 <=0.27 mmol/L 05/09/2024 6:19 PM EDT [facility] Blood Venous blood specimen / Unknown Venipuncture / Unknown 05/09/2024 11:30 AM EDT 05/09/2024 12:34 PM EDT us Gregg Burdick MD LAB BLOOD ORDERABLES Final Resu lt [facility] [address] [place] [address] * Phosphorus, Plasma (05/09/2024 11:30 AM EDT) Phosphorus, Plasma 3.8 2.5 - 4.5 mg/dL 05/09/2024 1:20 PM EDT [facility] Blood Venous blood specimen / Unknown Venipuncture / Unknown 05/09/2024 11:30 AM EDT 05/09/2024 12:34 PM EDT us Maite Austin MD LAB BLOOD ORDERABLES Final Resu lt [facility] [address] [place] [address] * (ABNORMAL) Basic Metabolic Panel, Plasma (05/09/2024 11:30 AM EDT) Pathologist [facility] Glucose, Plasma 83 74 - 99 mg/dL 05/09/2024 1:20 PM EDT [facility] BUN, Plasma 33(H) 7 - 21 mg/dL 05/09/2024 1:20 PM EDT [facility] Creatinine, Plasma 1.62(H) 0.60 - 1.10 mg/dL 05/09/2024 1:20 PM EDT [facility] BUN/Creatinine Ratio 20 05/09/2024 1:20 PM EDT [facility] Sodium, Plasma 145 136 - 145 mmol/L 05/09/2024 1:20 PM EDT [facility] Potassium, Plasma 3.8 3.6 - 4.9 mmol/L 05/09/2024 1:20 PM EDT [facility] Chloride, Plasma 106 97 - 107 mmol/L 05/09/2024 1:20 PM EDT [facility] CO2, Plasma 25 22 - 29 mmol/L 05/09/2024 1:20 PM EDT [facility] Anion Gap 14 6 - 16 mmol/L 05/09/2024 1:20 PM EDT [facility] Total Calcium, Plasma 8.1(L) 8.9 - 10.2 mg/dL 05/09/2024 1:20 PM EDT [facility] eGFRcr 37.6 mL/min/1.7 3m*2 05/09/2024 1:20 PM EDT [facility] Comment:Reported eGFRcr in m L/min/1.73m2 is based the CKD-EPI 2020 equation that does not use a race coefficient. Blood Venous blood specimen / Unknown Venipuncture / Unknown 05/09/2024 11:30 AM EDT 05/09/2024 12:34 PM EDT us Maite Austin MD LAB BLOOD ORDERABLES Final Resu lt Performing Organization Address [facility]/ZIP Co de Phone Number [facility] [address] [place] [address] * (ABNORMAL) Magnesium (05/09/2024 11:30 AM EDT) Magnesium, Plasma 2.8(H) 1.9 - 2.4 mg/dL 05/09/2024 1:20 PM EDT [facility] Blood Venous blood specimen / Unknown Venipuncture / Unknown 05/09/2024 11:30 AM EDT 05/09/2024 12:34 PM EDT us Maite Austin MD LAB BLOOD ORDERABLES Final Resu lt Performing Organization Address [facility] Co de Phone Number [facility] [address] [place] [address] * (ABNORMAL) Prealbumin (05/09/2024 11:30 AM EDT) Prealbumin, Plasma 6.5(L) 20.0 - 41.0 mg/dL 05/09/2024 1:20 PM EDT [facility] Blood Venous blood specimen / Unknown Venipuncture / Unknown 05/09/2024 11:30 AM EDT 05/09/2024 12:34 PM EDT us Maite Austin MD LAB BLOOD ORDERABLES Final Resu lt Performing Organization Address City/[facility]/ZIP Co de Phone Number [facility] [address] [place] [address] * (ABNORMAL) Hepatic function panel (05/09/2024 11:30 AM EDT) Conjugated Bilirubin, Plasma 0.3 <=0.3 mg/dL 05/09/2024 1:20 PM EDT [facility] Alkaline Phosphatase, Plasma 101 35 - 104 U/L 05/09/2024 1:20 PM EDT [facility] Total Bilirubin, Plasma 0.8 0.2 - 1.1 mg/dL 05/09/2024 1:20 PM EDT [facility] Albumin, Plasma 2.8(L) 3.5 - 5.2 g/dL 05/09/2024 1:20 PM EDT [facility] Total Protein 5.4(L) 6.3 - 7.9 g/dL 05/09/2024 1:20 PM EDT [facility] ALT, Plasma 54(H) 10 - 35 U/L 05/09/2024 1:20 PM EDT [facility] AST, Plasma 255(H) 10 - 35 U/L 05/09/2024 1:20 PM EDT [facility] Comment:Hemolyzed, result ma y be falsely increased. Blood Venous blood specimen / Unknown Venipuncture / Unknown 05/09/2024 11:30 AM EDT 05/09/2024 12:34 PM EDT us Reyna Obregon ACCOUNTS RECEIVABLE SPECIALIST LAB BLOOD ORDERABLES Namrata l Result [facility] [address] [place] [address] * [place] CRITICAL CARE, ADDL 30 MIN (05/09/2024 11:17 AM EDT) Narrative Gregg Burdick MD - 05/09/2024 11:17 AM EDT rGegg Burdick MD 05/10/2024 8:13 AM Critical Care [...] for testing. Comment 05/09/2024 11:08 AM EDT [facility] C.O.D. Biller ID Luca Em 05/10/19 11:08 AM EDT [facility] Device ID [id number] 05/09/2024 11:08 AM EDT [facility] Specimen Type POC Capillary 05/09/2024 11:08 AM EDT [facility] Blood Capillary blood specimen / Unknown 05/09/2024 11:06 AM EDT 05/09/2024 11:08 AM EDT us Maite Austin MD LAB POINT OF CARE TE ST DOCKED DEVICE UNSOLICITED RESULTS Final Result Performing Organization Address City/State/[facility] Co de Phone Number [facility] [address] [place] [address] * PERIPHERAL IV (SMARTFORM LINK) (05/09/2024 10:10 [...] semipermeable dressing Comments: By Michelle Velasco RN Maite Austin MD IV THERAPY ORDERABLES Final Res ult * (ABNORMAL) POCT glucose meter (05/09/2024 10:06 AM EDT) POCT Glucose 137(H) 74 - 99 mg/dL [...] Comment 05/09/2024 10:08 AM EDT [facility] C.O.D. Biller ID Luca Em 05/10/19 10:08 AM EDT [facility] Device ID [id number] 05/09/2024 10:08 AM EDT [facility] Specimen Type POC Capillary 05/09/2024 10:08 AM EDT [facility] Blood Capillary blood specimen / Unknown 05/09/2024 10:06 AM EDT 05/09/2024 10:08 AM EDT Maite Austin MD LAB POINT OF CARE TE ST DOCKED DEVICE UNSOLICITED RESULTS Final Result [facility] [address] [place] [address] * (ABNORMAL) POCT glucose meter (05/09/2024 9:48 AM EDT) POCT Glucose 222(H) 74 - 99 mg/dL 05/09/2024 9:49 AM EDT [facility] Comment:Accuracy of a [...] for testing. Comment 05/09/2024 9:49 AM EDT [facility] C.O.D. Biller ID Rosmery Oneal 025 9:49 AM EDT [facility] Device ID [id number] 05/09/2024 9:49 AM EDT [facility] Specimen Type POC Capillary 05/09/2024 9:49 AM EDT [facility] Blood Capillary blood specimen / Unknown 05/09/2024 9:48 AM EDT 05/09/2024 9:49 AM EDT us Maite Austin MD LAB POINT OF CARE TE ST DOCKED DEVICE UNSOLICITED RESULTS Final Result Performing Organization Address City/State/[facility] Co de Phone Number [facility] [address] [place], [place] [id number] * XR Chest 1 View (05/09/2024 9:33 [...] ECG Atrial Rate 113 BPM MUSE ECG WI Interval 122 ms MUSE ECG QRSD Interval 108 ms MUSE ECG QT Interval 386 ms MUSE ECG QTC Interval 529 ms MUSE ECG P Procious 41 degrees MUSE ECG R Procious 61 degrees MUSE ECG T Wave Procious 27 degrees MUSE ECG Diagnosis Poor data quality, interpretation may be adversely affected MUSE ECG Diagnosis Sinus tachycardia MUSE ECG Diagnosis Low voltage QRS MUSE ECG Diagnosis Incomplete right bundle branch block MUSE ECG Diagnosis Prolonged QT MUSE ECG Diagnosis Abnormal ECG MUSE ECG Diagnosis MUSE ECG Diagnosis Confirmed by Graham Singleton ([id number]) on 05/09/2024 1:36:01 PM MUSE ECG 05/09/2024 9:30 AM EDT 05/09/2024 1:36 PM EDT Maite Austin MD ECG ORDERABLES Final Result MUSE ECG * POCT glucose meter (05/09/2024 9:26 AM EDT) [facility] POCT Glucose 77 74 - 99 mg/dL 05/09/2024 9:36 AM EDT [facility] Comment:Accuracy [...] Comment 05/09/2024 9:36 AM EDT [facility] C.O.D. Biller ID Luca Em 05/10/19 9:36 AM EDT [facility] Device ID [id number] 05/09/2024 9:36 AM EDT [facility] Specimen Type POC Capillary 05/09/2024 9:36 AM EDT [facility] Blood Capillary blood specimen / Unknown 05/09/2024 9:26 AM EDT 05/09/2024 9:36 AM EDT Maite Austin MD LAB POINT OF CARE TE ST DOCKED DEVICE UNSOLICITED RESULTS Final Result [facility] [address] [place] [address] * (ABNORMAL) POCT glucose meter (05/09/2024 9:08 AM EDT) [facility] POCT Glucose 64(L) 74 - 99 mg/dL 05/09/2024 9:09 AM EDT [facility] Comment:Accuracy of [...] for testing. Comment 05/09/2024 9:09 AM EDT [facility] C.O.D. Biller ID Luca Em 05/10/19 9:09 AM EDT [facility] Device ID [id number] 05/09/2024 9:09 AM EDT [facility] Specimen Type POC Capillary 05/09/2024 9:09 AM EDT [facility] Blood Capillary blood specimen / Unknown 05/09/2024 9:08 AM EDT 05/09/2024 9:09 AM EDT Maite Austin MD LAB POINT OF CARE TE ST DOCKED DEVICE UNSOLICITED RESULTS Final Result Performing Organization Address City/[facility]/ZIP Co de Phone Number [facility] [address] [place] [address] * (ABNORMAL) POCT glucose meter (05/09/2024 8:42 [...] for testing. Comment 05/09/2024 8:44 AM EDT [facility] C.O.D. Biller ID Luca Em 05/10/19 8:44 AM EDT [facility] Device ID [id number] 05/09/2024 8:44 AM EDT [facility] Specimen Type POC Capillary 05/09/2024 8:44 AM EDT [facility] Blood Capillary blood specimen / Unknown 05/09/2024 8:42 AM EDT 05/09/2024 8:44 AM EDT us Maite Austin MD LAB POINT OF CARE TE ST DOCKED DEVICE UNSOLICITED RESULTS Final Result Performing Organization Address City/[facility]/ZIP Co de Phone Number [facility] [address] [place] [address] * (ABNORMAL) POCT glucose meter (05/09/2024 8:39 [...] Comment 05/09/2024 8:41 AM EDT [facility] C.O.D. Biller ID Luca Em 05/10/19 8:41 AM EDT [facility] Device ID [id number] 05/09/2024 8:41 AM EDT [facility] Specimen Type POC Capillary 05/09/2024 8:41 AM EDT [facility] Blood Capillary blood specimen / Unknown 05/09/2024 8:39 AM EDT 05/09/2024 8:41 AM EDT Maite Austin MD LAB POINT OF CARE TE ST DOCKED DEVICE UNSOLICITED RESULTS Final Result Performing Organization Address City/State/[facility] de Phone Number [facility] [address] [place] [address] * Transfuse RBC (05/09/2024 7:01 AM EDT) Maite Austin MD BLOOD TRANSFUSION ORDERABLES Fi nal Result * Transfuse RBC: 1 Units (05/09/2024 7:01 AM EDT) Maite Austin MD BLOOD TRANSFUSION ORDERABLES Fi nal Result * POCT glucose meter (05/09/2024 3:01 AM EDT) [facility] POCT Glucose 97 74 - 99 mg/dL [...] Comment 05/09/2024 3:03 AM EDT [facility] C.O.D. Biller ID Betty Young 025 3:03 AM EDT [facility] Device ID [id number] 05/09/2024 3:03 AM EDT [facility] Specimen Type POC Venous 05/09/2024 3:03 AM EDT [facility] Blood Venous blood specimen / Unknown 05/09/2024 3:01 AM EDT 05/09/2024 3:03 AM EDT Maite Austin MD LAB POINT OF CARE TE ST DOCKED DEVICE UNSOLICITED RESULTS Final Result Performing Organization Address City/[facility] de Phone Number [facility] [address] [place] [address] * Type and screen (05/09/2024 2:24 AM [...] TEST ORDERABLES Final Result Performing Organization Address [facility] Phone Number BLOOD BANK [address] [place] [address] * POCT glucose meter (05/09/2024 2:22 AM EDT) Pathologist [facility] POCT Glucose 82 74 - 99 mg/dL [...] 05/09/2024 2:23 AM EDT [facility] C.O.D. Biller ID Betty Young 025 2:23 AM EDT [facility] Device ID [id number] 05/09/2024 2:23 AM EDT [facility] Specimen Type POC Venous 05/09/2024 2:23 AM EDT [facility] Blood Venous blood specimen / Unknown 05/09/2024 2:22 AM EDT 05/09/2024 2:23 AM EDT Maite Austin MD LAB POINT OF CARE TE ST DOCKED DEVICE UNSOLICITED RESULTS Final Result Performing Organization Address City/[facility]/ZIP Co de Phone Number [facility] [address] [place] [address] * Prepare Leukocyte Reduced RBC: 1 Units (05/09/2024 1:51 AM EDT) Product Code [id number] BLOO D BANK Dispense Status Transfused BLOOD BANK Blood Expiration Date [id number] BLOOD BANK Unit Number [id number] CH B LOOD BANK Product Blood Type 7300 BLOOD BANK Blood Type B+ BLOOD BANK Crossmatch Compatible BLOOD BANK Other Maite Austin MD BLOOD BANK PRODUCT ORDERABLES F inal Result Performing Organization Address [facility] de Phone Number BLOOD BANK [address] [place] [address] * (ABNORMAL) Alanine Aminotransferase, Plasma (05/09/2024 12:52 AM EDT) ALT, Plasma 84(H) 10 - 35 U/L 05/09/2024 1:31 PM EDT [facility] Blood Venous blood specimen / Unknown Venipuncture / Unknown 05/09/2024 12:52 AM EDT 05/09/2024 12:57 AM EDT Maite Austin MD LAB BLOOD ORDERABLES Final Resu lt Performing Organization Address [facility] Co de Phone Number [facility] [address] [place] [address] * (ABNORMAL) Aspartate Aminotransferase, Plasma (05/09/2024 12:52 AM EDT) AST, Plasma 296(H) 10 - 35 U/L 05/09/2024 1:31 PM EDT [facility] Blood Venous blood specimen / Unknown Venipuncture / Unknown 05/09/2024 12:52 AM EDT 05/09/2024 12:57 AM EDT us Maite Austin MD LAB BLOOD ORDERABLES Final Resu lt [facility] [address] [place] [address] * (ABNORMAL) Basic metabolic panel (05/09/2024 12:52 AM EDT) Glucose, Plasma 78 74 - 99 mg/dL 05/09/2024 1:25 AM EDT [facility] BUN, Plasma 35(H) 7 - 21 mg/dL 05/09/2024 1:25 AM EDT [facility] Creatinine, Plasma 1.72(H) 0.60 - 1.10 mg/dL 05/09/2024 1:25 AM EDT [facility] BUN/Creatinine Ratio 20 05/09/2024 1:25 AM EDT [facility] Sodium, Plasma 143 136 - 145 mmol/L 05/09/2024 1:25 AM EDT [facility] Potassium, Plasma 4.7 3.6 - 4.9 mmol/L 05/09/2024 1:25 AM EDT [facility] Chloride, Plasma 107 97 - 107 mmol/L 05/09/2024 1:25 AM EDT [facility] CO2, Plasma 25 22 - 29 mmol/L 05/09/2024 1:25 AM EDT [facility] Anion Gap 11 6 - 16 mmol/L 05/09/2024 1:25 AM EDT [facility] Total Calcium, Plasma 8.1(L) 8.9 - 10.2 mg/dL 05/09/2024 1:25 AM EDT [facility] eGFRcr 35.0 mL/min/1.7 3m*2 05/09/2024 1:25 AM EDT [facility] Comment:Reported eGFRcr in m L/min/1.73m2 is based the CKD-EPI 2020 equation that does not use a race coefficient. Blood Venous blood specimen / Unknown Venipuncture / Unknown 05/09/2024 12:52 AM EDT 05/09/2024 12:57 AM EDT us Maite Austin MD LAB BLOOD ORDERABLES Final Resu lt [facility] [address] [place] [address] * (ABNORMAL) Hemogram (CBC) (05/09/2024 12:52 AM EDT) WBC Count 16.81(H) 3.70 - 10.30 10*3/uL LAB HEMATOLOGY METHOD 05/09/2024 1:05 AM EDT [facility] RBC Count 2.62(L) 3.90 - 5.20 10*6/uL LAB HEMATOLOGY METHOD 05/09/2024 1:05 AM EDT [facility] HGB 7.6(L) 11.2 - 15.7 g/dL LAB HEMATOLOGY METHOD 05/09/2024 1:05 AM EDT [facility] HCT 22.5(L) 34.0 - 45.0 % LAB HEMATOLOGY METHOD 05/09/2024 1:05 AM EDT [facility] Platelet Count 129(L) 155 - 369 10*3/uL LAB HEMATOLOGY METHOD 05/09/2024 1:05 AM EDT [facility] MCV 86 79 - 98 fL LAB HEMATOLOGY METHOD 05/09/2024 1:05 AM EDT [facility] MCH 29.0 26.0 - 32.0 pg LAB HEMATOLOGY METHOD 05/09/2024 1:05 AM EDT [facility] MCHC 33.8 30.7 - 35.5 g/dL LAB HEMATOLOGY METHOD 05/09/2024 1:05 AM EDT [facility] RDW 16.9(H) 11.5 - 14.5 % LAB HEMATOLOGY METHOD 05/09/2024 1:05 AM EDT [facility] MPV 11.1 8.8 - 12.5 fL LAB HEMATOLOGY METHOD 05/09/2024 1:05 AM EDT [facility] nRBC 0.7(H) <=0.0 per 100 WBCs LAB HEMATOLOGY METHOD 05/09/2024 1:05 AM EDT [facility] Blood Venous blood specimen / Unknown Venipuncture / Unknown 05/09/2024 12:52 AM EDT 05/09/2024 12:57 AM EDT us Maite Austin MD LAB BLOOD ORDERABLES Final Resu lt Performing Organization Address City/[facility] Co de Phone Number [facility] [address] [place] [address] * POCT glucose meter (05/08/2024 10:15 PM [...] Comment 05/08/2024 10:17 PM EDT [facility] C.O.D. Biller ID Katya Reyes 05/08/2024 10:17 PM EDT [facility] Device ID [id number] 05/08/2024 10:17 PM EDT [facility] Specimen Type POC Venous 05/08/2024 10:17 PM EDT [facility] Blood Venous blood specimen / Unknown 05/08/2024 10:15 PM EDT 05/08/2024 10:17 PM EDT us Maite Austin MD LAB POINT OF CARE TE ST DOCKED DEVICE UNSOLICITED RESULTS Final Result Performing Organization Address City/[facility] Co de Phone Number [facility] [address] [place] [address] * POCT glucose meter (05/08/2024 10:14 PM [...] 05/18/2024 9:43 AM EDT [facility] C.O.D. Biller ID Katya Reyes 05/18/2024 9:43 AM EDT [facility] Device ID [id number] 05/18/2024 9:43 AM EDT [facility] Specimen Type POC Capillary 05/18/2024 9:43 AM EDT [facility] Blood Capillary blood specimen / Unknown 05/08/2024 10:14 PM EDT 05/08/2024 10:15 PM EDT Narrative [facility]ALTH[facility]ARE [facility] - 05/18/2024 9:43 AM EDT Testing error per wing bennett csn us Maite Austin MD LAB POINT OF CARE TE ST DOCKED DEVICE UNSOLICITED RESULTS Edited Result - Final [facility] [address] [place], [place] [id number] * (ABNORMAL) CBC W/O Differential (05/08/2024 5:02 PM EDT) WBC Count 16.56(H) 3.70 - 10.30 10*3/uL LAB HEMATOLOGY METHOD 05/08/2024 5:23 PM EDT [facility] RBC Count 2.77(L) 3.90 - 5.20 10*6/uL LAB HEMATOLOGY METHOD 05/08/2024 5:23 PM EDT [facility] HGB 8.2(L) 11.2 - 15.7 g/dL LAB HEMATOLOGY METHOD 05/08/2024 5:23 PM EDT [facility] HCT 24.0(L) 34.0 - 45.0 % LAB HEMATOLOGY METHOD 05/08/2024 5:23 PM EDT [facility] Platelet Count 143(L) 155 - 369 10*3/uL LAB HEMATOLOGY METHOD 05/08/2024 5:23 PM EDT [facility] MCV 87 79 - 98 fL LAB HEMATOLOGY METHOD 05/08/2024 5:23 PM EDT [facility] MCH 29.6 26.0 - 32.0 pg LAB HEMATOLOGY METHOD 05/08/2024 5:23 PM EDT [facility] MCHC 34.2 30.7 - 35.5 g/dL LAB HEMATOLOGY METHOD 05/08/2024 5:23 PM EDT [facility] RDW 17.0(H) 11.5 - 14.5 % LAB HEMATOLOGY METHOD 05/08/2024 5:23 PM EDT [facility] MPV 11.3 8.8 - 12.5 fL LAB HEMATOLOGY METHOD 05/08/2024 5:23 PM EDT [facility] nRBC 0.6(H) <=0.0 per 100 WBCs LAB HEMATOLOGY METHOD 05/08/2024 5:23 PM EDT [facility] Blood Venous blood specimen / Unknown Venipuncture / Unknown 05/08/2024 5:02 PM EDT 05/08/2024 5:14 PM EDT us Maite Austin MD LAB BLOOD ORDERABLES Final Resu lt Performing Organization Address City/[facility]/ZIP Co de Phone Number [facility] [address] [place] [address] * (ABNORMAL) Magnesium (05/08/2024 5:01 PM EDT) Magnesium, Plasma 2.8(H) 1.9 - 2.4 mg/dL 05/08/2024 5:44 PM EDT [facility] Blood Venous blood specimen / Unknown Venipuncture / Unknown 05/08/2024 5:01 PM EDT 05/08/2024 5:15 PM EDT us Maite Austin MD LAB BLOOD ORDERABLES Final Resu lt [facility] [address] [place] [address] * (ABNORMAL) Renal function panel (05/08/2024 5:01 PM EDT) Glucose, Plasma 102(H) 74 - 99 mg/dL 05/08/2024 5:44 PM EDT [facility] BUN, Plasma 34(H) 7 - 21 mg/dL 05/08/2024 5:44 PM EDT [facility] Creatinine, Plasma 1.80(H) 0.60 - 1.10 mg/dL 05/08/2024 5:44 PM EDT [facility] BUN/Creatinine Ratio 19 05/08/2024 5:44 PM EDT [facility] Sodium, Plasma 145 136 - 145 mmol/L 05/08/2024 5:44 PM EDT [facility] Potassium, Plasma 5.1(H) 3.6 - 4.9 mmol/L 05/08/2024 5:44 PM EDT [facility] Chloride, Plasma 108(H) 97 - 107 mmol/L 05/08/2024 5:44 PM EDT [facility] CO2, Plasma 22 22 - 29 mmol/L 05/08/2024 5:44 PM EDT [facility] Anion Gap 15 6 - 16 mmol/L 05/08/2024 5:44 PM EDT [facility] Total Calcium, Plasma 8.2(L) 8.9 - 10.2 mg/dL 05/08/2024 5:44 PM EDT [facility] Phosphorus, Plasma 5.5(H) 2.5 - 4.5 mg/dL 05/08/2024 5:44 PM EDT [facility] Albumin, Plasma 2.8(L) 3.5 - 5.2 g/dL 05/08/2024 5:44 PM EDT [facility] eGFRcr 33.1 mL/min/1.7 3m*2 05/08/2024 5:44 PM EDT [facility] Comment:Reported eGFRcr in m L/min/1.73m2 is based the CKD-EPI 2020 equation that does not use a race coefficient. Blood Venous blood specimen / Unknown Venipuncture / Unknown 05/08/2024 5:01 PM EDT 05/08/2024 5:15 PM EDT us Maite Austin MD LAB BLOOD ORDERABLES Final Resu lt [facility] [address] [place] [address] * [place] CRITICAL CARE, ADDL 30 MIN (05/08/2024 1:26 PM EDT) Narrative Gregg Burdick MD - 05/08/2024 1:26 PM EDT Gregg [...] 05/08/2024 12:24 PM EDT [facility] C.O.D. Biller ID Hernández, Melisa 05/08/2024 12:24 PM EDT [facility] Device ID [id number] 05/08/2024 12:24 PM EDT [facility] Specimen Type POC Arterial 05/08/2024 12:24 PM EDT [facility] Blood Arterial blood specimen / Unknown 05/08/2024 12:23 PM EDT 05/08/2024 12:24 PM EDT Maite Austin MD LAB POINT OF CARE TE ST DOCKED DEVICE UNSOLICITED RESULTS Final Result [facility] [address] [place] [address] * (ABNORMAL) POCT glucose meter (05/08/2024 9:29 [...] for testing. Comment 05/08/2024 9:36 AM EDT [facility] C.O.D. Biller ID Hernández, Melisa 05/08/2024 9:36 AM EDT [facility] Device ID [id number] 05/08/2024 9:36 AM EDT [facility] Specimen Type POC Arterial 05/08/2024 9:36 AM EDT [facility] Blood Arterial blood specimen / Unknown 05/08/2024 9:29 AM EDT 05/08/2024 9:36 AM EDT us Maite Austin MD LAB POINT OF CARE TE ST DOCKED DEVICE UNSOLICITED RESULTS Final Result [facility] [address] [place] [address] * (ABNORMAL) POCT glucose meter (05/08/2024 5:54 [...] Comment 05/08/2024 5:56 AM EDT [facility] C.O.D. Biller ID Libby Mckeon 05/08/2024 5:56 AM EDT [facility] Device ID [id number] 05/08/2024 5:56 AM EDT [facility] Specimen Type POC Arterial 05/08/2024 5:56 AM EDT [facility] Blood Arterial blood specimen / Unknown 05/08/2024 5:54 AM EDT 05/08/2024 5:56 AM EDT Maite Austin MD LAB POINT OF CARE TE ST DOCKED DEVICE UNSOLICITED RESULTS Final Result Performing Organization Address City/State/[facility] Co de Phone Number [facility] [address] [place] [address] * XR Chest 1 View (05/08/2024 2:42 [...] 1 VIEW COMPARISON: 05/07/2024 FINDINGS: Interval extubation. [place]-Ellis catheter has been removed. Right IJ introducer sheath remains in place. Unchanged position of bilateral chest tubes and mediastinal drains. Stable cardiomediastinal silhouette. Interval development of hazy left lung opacities. No large pleural effusion or discrete pneumothorax. Procedure Note Svetlana Scott MD - 05/08/2024 CLINICAL INDICATION: Post op TECHNIQUE: XR CHEST 1 VIEW COMPARISON: 05/07/2024 FINDINGS: Interval extubation. [place]-Ellis catheter has been removed. Right IJintroducer sheath [...] - 99 mg/dL 05/08/2024 1:28 AM EDT [facility] BUN, Plasma 28(H) 7 - 21 mg/dL 05/08/2024 1:28 AM EDT [facility] Creatinine, Plasma 1.84(H) 0.60 - 1.10 mg/dL 05/08/2024 1:28 AM EDT [facility] BUN/Creatinine Ratio 15 05/08/2024 1:28 AM EDT [facility] Sodium, Plasma 148(H) 136 - 145 mmol/L 05/08/2024 1:28 AM EDT [facility] Potassium, Plasma 4.6 3.6 - 4.9 mmol/L 05/08/2024 1:28 AM EDT [facility] Chloride, Plasma 115(H) 97 - 107 mmol/L 05/08/2024 1:28 AM EDT [facility] CO2, Plasma 20(L) 22 - 29 mmol/L 05/08/2024 1:28 AM EDT [facility] Anion Gap 13 6 - 16 mmol/L 05/08/2024 1:28 AM EDT [facility] Total Calcium, Plasma 8.2(L) 8.9 - 10.2 mg/dL 05/08/2024 1:28 AM EDT [facility] eGFRcr 32.3 mL/min/1.7 3m*2 05/08/2024 1:28 AM EDT [facility] Comment:Reported eGFRcr in m L/min/1.73m2 is based the CKD-EPI 2020 equation that does not use a race coefficient. Blood Venous blood specimen / Unknown Venipuncture / Unknown 05/08/2024 12:46 AM EDT 05/08/2024 12:57 AM EDT us Maite Austin MD LAB BLOOD ORDERABLES Final Resu lt [facility] [address] [place] [address] * (ABNORMAL) Blood gas, arterial (05/08/2024 12:23 AM EDT) pH, Arterial 7.30(L) 7.35 - 7.45 LAB HEMATOLOGY METHOD 05/08/2024 12:32 AM EDT [facility] pCO2, Arterial 47 35 - 48 mmHg LAB HEMATOLOGY METHOD 05/08/2024 12:32 AM EDT [facility] pO2, Arterial 90 83 - 108 mmHg LAB HEMATOLOGY METHOD 05/08/2024 12:32 AM EDT [facility] SO2, Measured, Arterial 98 94 - 98 % LAB HEMATOLOGY METHOD 05/08/2024 12:32 AM EDT [facility] Base Excess, Arterial -3.4(L) -2.0 - 3.0 mmol/L LAB HEMATOLOGY METHOD 05/08/2024 12:32 AM EDT [facility] Bicarbonate, Calculated, Arterial 23 22 - 26 mmol/L LAB HEMATOLOGY METHOD 05/08/2024 12:32 AM EDT [facility] Hematocrit, Whole Blood 27.3(L) 34.0 - 45.0 % LAB HEMATOLOGY METHOD 05/08/2024 12:32 AM EDT [facility] Sodium, Whole Blood 146(H) 136 - 145 mmol/L LAB HEMATOLOGY METHOD 05/08/2024 12:32 AM EDT [facility] Potassium, Whole Blood 4.2 3.6 - 4.9 mmol/L LAB HEMATOLOGY METHOD 05/08/2024 12:32 AM EDT [facility] Chloride, Whole Blood 115(H) 97 - 107 mmol/L LAB HEMATOLOGY METHOD 05/08/2024 12:32 AM EDT [facility] Glucose, Whole Blood 119(H) 74 - 99 mg/dL LAB HEMATOLOGY METHOD 05/08/2024 12:32 AM EDT [facility] Ionized Calcium, Whole Blood 4.7 4.6 - 5.1 mg/dL LAB HEMATOLOGY METHOD 05/08/2024 12:32 AM EDT [facility] Lactate, Arterial, Whole Blood 3.2(H) 0.5 - 1.6 mmol/L LAB HEMATOLOGY METHOD 05/08/2024 12:32 AM EDT [facility] Blood Arterial blood specimen / Unknown Arterial Puncture / Unknown 05/08/2024 12:23 AM EDT 05/08/2024 12:29 AM EDT us Maite Austin MD LAB BLOOD ORDERABLES Final Resu lt [facility] [address] [place] [address] * (ABNORMAL) POCT glucose meter (05/08/2024 12:21 AM EDT) POCT Glucose 131(H) 74 - 99 [...] Comment 05/08/2024 12:23 AM EDT [facility] C.O.D. Biller ID Libby Mckeon 05/08/2024 12:23 AM EDT [facility] Device ID [id number] 05/08/2024 12:23 AM EDT [facility] Specimen Type POC Arterial 05/08/2024 12:23 AM EDT [facility] Blood Arterial blood specimen / Unknown 05/08/2024 12:21 AM EDT 05/08/2024 12:23 AM EDT us Maite Austin MD LAB POINT OF CARE TE ST DOCKED DEVICE UNSOLICITED RESULTS Final Result [facility] [address] [place] [id number] * (ABNORMAL) CBC (05/08/2024 12:21 AM EDT) WBC Count 16.25(H) 3.70 - 10.30 10*3/uL LAB HEMATOLOGY METHOD 05/08/2024 1:04 AM EDT [facility] RBC Count 3.09(L) 3.90 - 5.20 10*6/uL LAB HEMATOLOGY METHOD 05/08/2024 1:04 AM EDT [facility] HGB 9.2(L) 11.2 - 15.7 g/dL LAB HEMATOLOGY METHOD 05/08/2024 1:04 AM EDT [facility] HCT 26.6(L) 34.0 - 45.0 % LAB HEMATOLOGY METHOD 05/08/2024 1:04 AM EDT [facility] Platelet Count 159 155 - 369 10*3/uL LAB HEMATOLOGY METHOD 05/08/2024 1:04 AM EDT [facility] MCV 86 79 - 98 fL LAB HEMATOLOGY METHOD 05/08/2024 1:04 AM EDT [facility] MCH 29.8 26.0 - 32.0 pg LAB HEMATOLOGY METHOD 05/08/2024 1:04 AM EDT [facility] MCHC 34.6 30.7 - 35.5 g/dL LAB HEMATOLOGY METHOD 05/08/2024 1:04 AM EDT [facility] RDW 17.0(H) 11.5 - 14.5 % LAB HEMATOLOGY METHOD 05/08/2024 1:04 AM EDT [facility] MPV 11.2 8.8 - 12.5 fL LAB HEMATOLOGY METHOD 05/08/2024 1:04 AM EDT [facility] nRBC 0.0 <=0.0 per 100 WBCs LAB HEMATOLOGY METHOD 05/08/2024 1:04 AM EDT [facility] Blood Venous blood specimen / Unknown Venipuncture / Unknown 05/08/2024 12:21 AM EDT 05/08/2024 12:40 AM EDT Maite Austin MD LAB BLOOD ORDERABLES Final Resu lt Performing Organization Address [facility] Co de Phone Number [facility] [address] [place] [address] * ECG Adult (05/07/2024 11:23 PM EDT) EKG DIAGNOSIS CLASS Abnormal MUSE ECG Ventricular Rate 106 BPM MUSE ECG Atrial Rate 106 BPM MUSE ECG WI Interval 136 ms MUSE ECG QRSD Interval 104 ms MUSE ECG QT Interval 406 ms MUSE ECG QTC Interval 539 ms MUSE ECG P Procious 42 degrees MUSE ECG R Procious 62 degrees MUSE ECG T Wave Procious 36 degrees MUSE ECG Diagnosis Sinus tachycardia MUSE ECG Diagnosis Low voltage QRS MUSE ECG Diagnosis Incomplete right bundle branch block MUSE ECG Diagnosis Nonspecific T wave abnormality MUSE ECG Diagnosis Prolonged QT MUSE ECG Diagnosis Abnormal ECG MUSE ECG Diagnosis MUSE ECG Diagnosis Confirmed by Marlena Zhou ([id number]) on 05/08/2024 11:25:10 AM MUSE ECG 05/07/2024 11:2 3 PM EDT 05/08/2024 11:25 AM EDT Maite Austin MD ECG ORDERABLES Final Result Performing Organization Address [facility] Co de Phone Number MUSE ECG * Potassium (05/07/2024 11:15 PM EDT) Pathologist [facility] Potassium, Plasma 4.3 3.6 - 4.9 mmol/L 05/07/2024 11:41 PM EDT [facility] Blood Venous blood specimen / Unknown Venipuncture / Unknown 05/07/2024 11:15 PM EDT 05/07/2024 11:21 PM EDT Maite Austin MD LAB BLOOD ORDERABLES Final Resu lt Performing Organization Address City/[facility]/ZIP Co de Phone Number [facility] [address] [place] [address] * (ABNORMAL) POCT glucose meter (05/07/2024 11:04 PM EDT) [facility] POCT Glucose 247(H) 74 - 99 mg/dL [...] Comment 05/07/2024 11:06 PM EDT [facility] C.O.D. Biller ID Libby Mckeon 05/07/2024 11:06 PM EDT [facility] Device ID [id number] 05/07/2024 11:06 PM EDT [facility] Specimen Type POC Arterial 05/07/2024 11:06 PM EDT [facility] Blood Arterial blood specimen / Unknown 05/07/2024 11:04 PM EDT 05/07/2024 11:06 PM EDT Maite Austin MD LAB POINT OF CARE TE ST DOCKED DEVICE UNSOLICITED RESULTS Final Result [facility] [address] [place] [address] * (ABNORMAL) POCT glucose meter (05/07/2024 10:38 PM EDT) [facility] POCT Glucose 121(H) 74 - 99 mg/dL [...] for testing. Comment 05/07/2024 11:04 PM EDT [facility] C.O.D. Biller ID Libby Mckeon 05/07/2024 11:04 PM EDT [facility] Device ID [id number] 05/07/2024 11:04 PM EDT [facility] Specimen Type POC Arterial 05/07/2024 11:04 PM EDT [facility] Blood Arterial blood specimen / Unknown 05/07/2024 10:38 PM EDT 05/07/2024 11:04 PM EDT Maite Austin MD LAB POINT OF CARE TE ST DOCKED DEVICE UNSOLICITED RESULTS Final Result Performing Organization Address City/[facility]/ZIP Co de Phone Number [facility] [address] [place] [address] * (ABNORMAL) POCT glucose meter (05/07/2024 10:22 [...] Comment 05/07/2024 10:23 PM EDT [facility] C.O.D. Biller ID Libby Mckeon 05/07/2024 10:23 PM EDT [facility] Device ID [id number] 05/07/2024 10:23 PM EDT [facility] Specimen Type POC Arterial 05/07/2024 10:23 PM EDT [facility] Blood Arterial blood specimen / Unknown 05/07/2024 10:22 PM EDT 05/07/2024 10:23 PM EDT us Maite Austin MD LAB POINT OF CARE TE ST DOCKED DEVICE UNSOLICITED RESULTS Final Result Performing Organization Address City/[facility] Co de Phone Number [facility] [address] [place] [address] * (ABNORMAL) POCT glucose meter (05/07/2024 9:20 [...] Comment 05/07/2024 9:21 PM EDT [facility] C.O.D. Biller ID Libby Mckeon 05/07/2024 9:21 PM EDT [facility] Device ID [id number] 05/07/2024 9:21 PM EDT [facility] Specimen Type POC Arterial 05/07/2024 9:21 PM EDT [facility] Blood Arterial blood specimen / Unknown 05/07/2024 9:20 PM EDT 05/07/2024 9:21 PM EDT Maite Austin MD LAB POINT OF CARE TE ST DOCKED DEVICE UNSOLICITED RESULTS Final Result Performing Organization Address City/[facility] Co de Phone Number [facility] [address] [place] [address] * (ABNORMAL) Magnesium (05/07/2024 7:58 PM EDT) Magnesium, Plasma 3.1(H) 1.9 - 2.4 mg/dL 05/07/2024 8:58 PM EDT [facility] Blood Venous blood specimen / Unknown Venipuncture / Unknown 05/07/2024 7:58 PM EDT 05/07/2024 8:24 PM EDT us Maite Austin MD LAB BLOOD ORDERABLES Final Resu lt [facility] [address] [place] [address] * (ABNORMAL) Renal function panel (05/07/2024 7:58 PM EDT) Glucose, Plasma 135(H) 74 - 99 mg/dL 05/07/2024 8:58 PM EDT [facility] BUN, Plasma 28(H) 7 - 21 mg/dL 05/07/2024 8:58 PM EDT [facility] Creatinine, Plasma 1.92(H) 0.60 - 1.10 mg/dL 05/07/2024 8:58 PM EDT [facility] BUN/Creatinine Ratio 15 05/07/2024 8:58 PM EDT [facility] Sodium, Plasma 148(H) 136 - 145 mmol/L 05/07/2024 8:58 PM EDT [facility] Potassium, Plasma 5.5(H) 3.6 - 4.9 mmol/L 05/07/2024 8:58 PM EDT [facility] Chloride, Plasma 114(H) 97 - 107 mmol/L 05/07/2024 8:58 PM EDT [facility] CO2, Plasma 20(L) 22 - 29 mmol/L 05/07/2024 8:58 PM EDT [facility] Anion Gap 14 6 - 16 mmol/L 05/07/2024 8:58 PM EDT [facility] Total Calcium, Plasma 8.4(L) 8.9 - 10.2 mg/dL 05/07/2024 8:58 PM EDT [facility] Phosphorus, Plasma 6.6(H) 2.5 - 4.5 mg/dL 05/07/2024 8:58 PM EDT [facility] Albumin, Plasma 3.0(L) 3.5 - 5.2 g/dL 05/07/2024 8:58 PM EDT [facility] eGFRcr 30.7 mL/min/1.7 3m*2 05/07/2024 8:58 PM EDT [facility] Comment:Reported eGFRcr in m L/min/1.73m2 is based the CKD-EPI 2020 equation that does not use a race coefficient. Blood Venous blood specimen / Unknown Venipuncture / Unknown 05/07/2024 7:58 PM EDT 05/07/2024 8:24 PM EDT us Maite Austin MD LAB BLOOD ORDERABLES Final Resu lt [facility] [address] [place] [address] * (ABNORMAL) POCT glucose meter (05/07/2024 5:58 PM EDT) Pathologist [facility] POCT Glucose 125(H) 74 - 99 mg/dL 05/07/2024 6:00 PM EDT [facility] Comment:Accuracy of [...] for testing. Comment 05/07/2024 6:00 PM EDT [facility] C.O.D. Biller ID Melisa Hernández 05/07/2024 6:00 PM EDT [facility] Device ID [id number] 05/07/2024 6:00 PM EDT [facility] Specimen Type POC Arterial 05/07/2024 6:00 PM EDT [facility] Blood Arterial blood specimen / Unknown 05/07/2024 5:58 PM EDT 05/07/2024 6:00 PM EDT us Maite Austin MD LAB POINT OF CARE TE ST DOCKED DEVICE UNSOLICITED RESULTS Final Result Performing Organization Address City/State/[facility] Co de Phone Number [facility] [address] [place] [address] * (ABNORMAL) POCT glucose meter (05/07/2024 1:50 PM EDT) Pathologist [facility] POCT Glucose 122(H) 74 - 99 mg/dL [...] 05/07/2024 1:52 PM EDT [facility] C.O.D. Biller ID Melisa Hernández 05/07/2024 1:52 PM EDT [facility] Device ID [id number] 05/07/2024 1:52 PM EDT [facility] Specimen Type POC Arterial 05/07/2024 1:52 PM EDT [facility] Blood Arterial blood specimen / Unknown 05/07/2024 1:50 PM EDT 05/07/2024 1:52 PM EDT us Maite Austin MD LAB POINT OF CARE TE ST DOCKED DEVICE UNSOLICITED RESULTS Final Result [facility] [address] [place] [address] * [place] [facility], ADDL 30 MIN (05/07/2024 10:11 [...] with the findings and plan as documented. Amaury Byrd MD IN CLINIC/BEDSIDE ORDERABLES Fi nal Result * (ABNORMAL) Blood gas panel with oximetry, mixed venous (05/07/2024 8:08 AM EDT) pH, Mixed Venous 7.27(L) 7.32 - 7.43 LAB HEMATOLOGY METHOD 05/07/2024 8:27 AM EDT [facility] pCO2, Mixed Venous 50 37 - 52 mmHg LAB HEMATOLOGY METHOD 05/07/2024 8:27 AM EDT [facility] pO2, Mixed Venous 52(H) 25 - 40 mmHg LAB HEMATOLOGY METHOD 05/07/2024 8:27 AM EDT [facility] SO2, Measured, Mixed Venous 86(H) 65 - 80 % LAB HEMATOLOGY METHOD 05/07/2024 8:27 AM EDT [facility] Bicarbonate, Calculated, Mixed Venous 23 22 - 26 mmol/L LAB HEMATOLOGY METHOD 05/07/2024 8:27 AM EDT [facility] Base Excess, Mixed Venous -3.8(L) -2.0 - 3.0 mmol/L LAB HEMATOLOGY METHOD 05/07/2024 8:27 AM EDT [facility] Hematocrit, Whole Blood 29.8(L) 34.0 - 45.0 % LAB HEMATOLOGY METHOD 05/07/2024 8:27 AM EDT [facility] Sodium, Whole Blood 151(H) 136 - 145 mmol/L LAB HEMATOLOGY METHOD 05/07/2024 8:27 AM EDT [facility] Potassium, Whole Blood 4.5 3.6 - 4.9 mmol/L LAB HEMATOLOGY METHOD 05/07/2024 8:27 AM EDT [facility] Chloride, Whole Blood 119(H) 97 - 107 mmol/L LAB HEMATOLOGY METHOD 05/07/2024 8:27 AM EDT [facility] Ionized Calcium, Whole Blood 4.9 4.6 - 5.1 mg/dL LAB HEMATOLOGY METHOD 05/07/2024 8:27 AM EDT [facility] Glucose, Whole Blood 112(H) 74 - 99 mg/dL LAB HEMATOLOGY METHOD 05/07/2024 8:27 AM EDT [facility] Oxyhemoglobin, Mixed Venous, Whole Blood 83.4(H) 40.0 - 70.0 % LAB HEMATOLOGY METHOD 05/07/2024 8:27 AM EDT [facility] Hemoglobin Reduced, Mixed Venous, Whole Blood 14.2 % LAB HEMATOLOGY METHOD 05/07/2024 8:27 AM EDT [facility] Total Hemoglobin, Mixed Venous, Whole Blood 9.7(L) 11.2 - 15.7 g/dL LAB HEMATOLOGY METHOD 05/07/2024 8:27 AM EDT [facility] Blood Mixed venous blood specimen / Unknown Venipuncture / Unknown 05/07/2024 8:08 AM EDT 05/07/2024 8:23 AM EDT us Maite Austin MD LAB BLOOD ORDERABLES Final Resu lt [facility] [address] [place] [address] * (ABNORMAL) Blood gas, arterial (05/07/2024 8:08 AM EDT) pH, Arterial 7.29(L) 7.35 - 7.45 LAB HEMATOLOGY METHOD 05/07/2024 8:26 AM EDT [facility] pCO2, Arterial 48 35 - 48 mmHg LAB HEMATOLOGY METHOD 05/07/2024 8:26 AM EDT [facility] pO2, Arterial 148(H) 83 - 108 mmHg LAB HEMATOLOGY METHOD 05/07/2024 8:26 AM EDT [facility] SO2, Measured, Arterial 99(H) 94 - 98 % LAB HEMATOLOGY METHOD 05/07/2024 8:26 AM EDT [facility] Base Excess, Arterial -3.5(L) -2.0 - 3.0 mmol/L LAB HEMATOLOGY METHOD 05/07/2024 8:26 AM EDT [facility] Bicarbonate, Calculated, Arterial 23 22 - 26 mmol/L LAB HEMATOLOGY METHOD 05/07/2024 8:26 AM EDT [facility] Hematocrit, Whole Blood 30.5(L) 34.0 - 45.0 % LAB HEMATOLOGY METHOD 05/07/2024 8:26 AM EDT [facility] Sodium, Whole Blood 151(H) 136 - 145 mmol/L LAB HEMATOLOGY METHOD 05/07/2024 8:26 AM EDT [facility] Potassium, Whole Blood 4.6 3.6 - 4.9 mmol/L LAB HEMATOLOGY METHOD 05/07/2024 8:26 AM EDT [facility] Chloride, Whole Blood 119(H) 97 - 107 mmol/L LAB HEMATOLOGY METHOD 05/07/2024 8:26 AM EDT [facility] Glucose, Whole Blood 118(H) 74 - 99 mg/dL LAB HEMATOLOGY METHOD 05/07/2024 8:26 AM EDT [facility] Ionized Calcium, Whole Blood 5.0 4.6 - 5.1 mg/dL LAB HEMATOLOGY METHOD 05/07/2024 8:26 AM EDT [facility] Lactate, Arterial, Whole Blood 3.5(H) 0.5 - 1.6 mmol/L LAB HEMATOLOGY METHOD 05/07/2024 8:26 AM EDT [facility] Blood Arterial blood specimen / Unknown Arterial Puncture / Unknown 05/07/2024 8:08 AM EDT 05/07/2024 8:23 AM EDT us Maite Austin MD LAB BLOOD ORDERABLES Final Resu lt Performing Organization Address City/[facility]/ZIP Co de Phone Number [facility] [address] [place] [address] * (ABNORMAL) Potassium, Plasma (05/07/2024 8:08 AM EDT) Potassium, Plasma 5.0(H) 3.6 - 4.9 mmol/L 05/07/2024 8:55 AM EDT [facility] Blood Venous blood specimen / Unknown Venipuncture / Unknown 05/07/2024 8:08 AM EDT 05/07/2024 8:33 AM EDT us Maite Austin MD LAB BLOOD ORDERABLES Final Resu lt Performing Organization Address [facility] Co de Phone Number [facility] [address] [place] [address] * (ABNORMAL) Hematocrit (05/07/2024 8:08 AM EDT) HCT 29.0(L) 34.0 - 45.0 % LAB HEMATOLOGY METHOD 05/07/2024 8:46 AM EDT [facility] Blood Venous blood specimen / Unknown Venipuncture / Unknown 05/07/2024 8:08 AM EDT 05/07/2024 8:36 AM EDT us Maite Austin MD LAB BLOOD ORDERABLES Final Resu lt Performing Organization Address City/[facility]/ZIP Co de Phone Number [facility] [address] [place] [address] * (ABNORMAL) Hemoglobin (05/07/2024 8:08 AM EDT) HGB 9.9(L) 11.2 - 15.7 g/dL LAB HEMATOLOGY METHOD 05/07/2024 8:46 AM EDT [facility] Blood Venous blood specimen / Unknown Venipuncture / Unknown 05/07/2024 8:08 AM EDT 05/07/2024 8:36 AM EDT us Maite Austin MD LAB BLOOD ORDERABLES Final Resu lt [facility] [address] [place] [address] * (ABNORMAL) POCT arterial blood gas gem (05/07/2024 6:35 AM EDT) Pathologist [facility] pH, Arterial 7.32(L) 7.35 - 7.45 05/07/2024 6:36 AM EDT [facility] pCO2, Arterial 44 35 - 48 mm Hg 05/07/2024 6:36 AM EDT [facility] pO2, Arterial 80(L) 83 - 108 mm Hg 05/07/2024 6:36 AM EDT [facility] SO2, Arterial 98 94 - 98 % 05/07/2024 6:36 AM EDT [facility] FIO2 40.0 % 05/07/2024 6:36 AM EDT [facility] Base Excess, Arterial -3.3(L) -2 - 3 mmol/L 05/07/2024 6:36 AM EDT [facility] HCO3, Arterial 22.7 22 - 26 mmol/L 05/07/2024 6:36 AM EDT [facility] Total Hemoglobin, Arterial, Whole Blood 9.7(L) 11.2 - 15.7 g/dL 05/07/2024 6:36 AM EDT [facility] Hematocrit, Arterial 29.0(L) 34.0 - 45.0 % 05/07/2024 6:36 AM EDT [facility] Sodium, Arterial 151(H) 136 - 145 mmol/L 05/07/2024 6:36 AM EDT [facility] Potassium, Arterial 4.9 3.6 - 4.9 mmol/L 05/07/2024 6:36 AM EDT [facility] Chloride, Whole Blood 118(H) 97 - 107 mmol/L 05/07/2024 6:36 AM EDT [facility] Glucose, Arterial 114(H) 74 - 99 mg/dL 05/07/2024 6:36 AM EDT [facility] Ionized Calcium, Arterial 5.5(H) 4.6 - 5.1 mg/dL 05/07/2024 6:36 AM EDT [facility] Lactate, Arterial 3.9(H) 0.5 - 1.6 mmol/L 05/07/2024 6:36 AM EDT [facility] Body Temperature 38.0 Celsius 05/07/2024 6:36 AM EDT [facility] pH, Temp Corrected, Arterial 7.31(L) 7.35 - 7.45 05/07/2024 6:36 AM EDT [facility] pCO2, Temp Corrected, Arterial 46 35 - 48 mm Hg 05/07/2024 6:36 AM EDT [facility] pO2, Temp Corrected, Arterial 85 83 - 108 mm Hg 05/07/2024 6:36 AM EDT [facility] C.O.D. Biller ID Light, Vicky 05/07/2024 6:36 AM EDT [facility] Blood, Arterial Whole blood specimen / Unknown 05/07/2024 6:35 AM EDT 05/07/2024 6:36 AM EDT us Maite Austin MD LAB POINT OF CARE TE ST DOCKED DEVICE UNSOLICITED RESULTS Final Result Performing Organization Address City/State/[facility] Co de Phone Number [facility] [address] [place] [id number] * XR Chest 1 View (05/07/2024 5:42 [...] ECG Atrial Rate 79 BPM MUSE ECG WI Interval 126 ms MUSE ECG QRSD Interval 96 ms MUSE ECG QT Interval 430 ms MUSE ECG QTC Interval 493 ms MUSE ECG P Procious 70 degrees MUSE ECG R Procious 78 degrees MUSE ECG T Wave Procious 22 degrees MUSE ECG Diagnosis Normal sinus rhythm MUSE ECG Diagnosis Low voltage QRS MUSE ECG Diagnosis Possible Anterolateral infarct , age undetermined MUSE ECG Diagnosis QTcB >= 480 msec MUSE ECG Diagnosis Abnormal ECG MUSE ECG Diagnosis MUSE ECG Diagnosis Confirmed by Pratik Aiken ([id number]) on 05/07/2024 1:28:04 PM MUSE ECG 05/07/2024 4:16 AM EDT 05/07/2024 1:28 PM EDT us Maite Austin MD ECG ORDERABLES Final Result MUSE ECG * (ABNORMAL) Blood gas, arterial (05/07/2024 3:52 AM EDT) pH, Arterial 7.35 7.35 - 7.45 LAB HEMATOLOGY METHOD 05/07/2024 4:09 AM EDT [facility] pCO2, Arterial 40 35 - 48 mmHg LAB HEMATOLOGY METHOD 05/07/2024 4:09 AM EDT [facility] pO2, Arterial 172(H) 83 - 108 mmHg LAB HEMATOLOGY METHOD 05/07/2024 4:09 AM EDT [facility] SO2, Measured, Arterial 100(H) 94 - 98 % LAB HEMATOLOGY METHOD 05/07/2024 4:09 AM EDT [facility] Base Excess, Arterial -3.1(L) -2.0 - 3.0 mmol/L LAB HEMATOLOGY METHOD 05/07/2024 4:09 AM EDT [facility] Bicarbonate, Calculated, Arterial 22 22 - 26 mmol/L LAB HEMATOLOGY METHOD 05/07/2024 4:09 AM EDT [facility] Hematocrit, Whole Blood 31.2(L) 34.0 - 45.0 % LAB HEMATOLOGY METHOD 05/07/2024 4:09 AM EDT [facility] Sodium, Whole Blood 150(H) 136 - 145 mmol/L LAB HEMATOLOGY METHOD 05/07/2024 4:09 AM EDT [facility] Potassium, Whole Blood 4.4 3.6 - 4.9 mmol/L LAB HEMATOLOGY METHOD 05/07/2024 4:09 AM EDT [facility] Chloride, Whole Blood 117(H) 97 - 107 mmol/L LAB HEMATOLOGY METHOD 05/07/2024 4:09 AM EDT [facility] Glucose, Whole Blood 125(H) 74 - 99 mg/dL LAB HEMATOLOGY METHOD 05/07/2024 4:09 AM EDT [facility] Ionized Calcium, Whole Blood 4.3(L) 4.6 - 5.1 mg/dL LAB HEMATOLOGY METHOD 05/07/2024 4:09 AM EDT [facility] Lactate, Arterial, Whole Blood 4.6(H) 0.5 - 1.6 mmol/L LAB HEMATOLOGY METHOD 05/07/2024 4:09 AM EDT [facility] Blood Arterial blood specimen / Unknown Arterial Puncture / Unknown 05/07/2024 3:52 AM EDT 05/07/2024 4:04 AM EDT us Maite Austin MD LAB BLOOD ORDERABLES Final Resu lt [facility] [address] [place] [address] * (ABNORMAL) Blood gas panel with oximetry, mixed venous (05/07/2024 12:46 AM EDT) pH, Mixed Venous 7.24(LL) 7.32 - 7.43 LAB HEMATOLOGY METHOD 05/07/2024 1:12 AM EDT [facility] pCO2, Mixed Venous 61(HH) 37 - 52 mmHg LAB HEMATOLOGY METHOD 05/07/2024 1:12 AM EDT [facility] pO2, Mixed Venous 28 25 - 40 mmHg LAB HEMATOLOGY METHOD 05/07/2024 1:12 AM EDT [facility] SO2, Measured, Mixed Venous 46(L) 65 - 80 % LAB HEMATOLOGY METHOD 05/07/2024 1:12 AM EDT [facility] Bicarbonate, Calculated, Mixed Venous 26 22 - 26 mmol/L LAB HEMATOLOGY METHOD 05/07/2024 1:12 AM EDT [facility] Base Excess, Mixed Venous -2.4(L) -2.0 - 3.0 mmol/L LAB HEMATOLOGY METHOD 05/07/2024 1:12 AM EDT [facility] Hematocrit, Whole Blood 38.4 34.0 - 45.0 % LAB HEMATOLOGY METHOD 05/07/2024 1:12 AM EDT [facility] Sodium, Whole Blood 149(H) 136 - 145 mmol/L LAB HEMATOLOGY METHOD 05/07/2024 1:12 AM EDT [facility] Potassium, Whole Blood 4.7 3.6 - 4.9 mmol/L LAB HEMATOLOGY METHOD 05/07/2024 1:12 AM EDT [facility] Chloride, Whole Blood 115(H) 97 - 107 mmol/L LAB HEMATOLOGY METHOD 05/07/2024 1:12 AM EDT [facility] Ionized Calcium, Whole Blood 4.7 4.6 - 5.1 mg/dL LAB HEMATOLOGY METHOD 05/07/2024 1:12 AM EDT [facility] Glucose, Whole Blood 141(H) 74 - 99 mg/dL LAB HEMATOLOGY METHOD 05/07/2024 1:12 AM EDT [facility] Oxyhemoglobin, Mixed Venous, Whole Blood 44.6 40.0 - 70.0 % LAB HEMATOLOGY METHOD 05/07/2024 1:12 AM EDT [facility] Hemoglobin Reduced, Mixed Venous, Whole Blood 53.2 % LAB HEMATOLOGY METHOD 05/07/2024 1:12 AM EDT [facility] Total Hemoglobin, Mixed Venous, Whole Blood 12.5 11.2 - 15.7 g/dL LAB HEMATOLOGY METHOD 05/07/2024 1:12 AM EDT [facility] Blood Mixed venous blood specimen / Unknown Venipuncture / Unknown 05/07/2024 12:46 AM EDT 05/07/2024 1:10 AM EDT us Maite Austin MD LAB BLOOD ORDERABLES Final Resu lt [facility] [address] [place] [address] * (ABNORMAL) Basic metabolic panel (05/07/2024 12:46 AM EDT) Glucose, Plasma 139(H) 74 - 99 mg/dL 05/07/2024 1:44 AM EDT [facility] BUN, Plasma 16 7 - 21 mg/dL 05/07/2024 1:44 AM EDT [facility] Creatinine, Plasma 1.48(H) 0.60 - 1.10 mg/dL 05/07/2024 1:44 AM EDT [facility] BUN/Creatinine Ratio 11 05/07/2024 1:44 AM EDT [facility] Sodium, Plasma 149(H) 136 - 145 mmol/L 05/07/2024 1:44 AM EDT [facility] Potassium, Plasma 5.2(H) 3.6 - 4.9 mmol/L 05/07/2024 1:44 AM EDT [facility] Chloride, Plasma 117(H) 97 - 107 mmol/L 05/07/2024 1:44 AM EDT [facility] CO2, Plasma 20(L) 22 - 29 mmol/L 05/07/2024 1:44 AM EDT [facility] Anion Gap 12 6 - 16 mmol/L 05/07/2024 1:44 AM EDT [facility] Total Calcium, Plasma 8.1(L) 8.9 - 10.2 mg/dL 05/07/2024 1:44 AM EDT [facility] eGFRcr 41.9 mL/min/1.7 3m*2 05/07/2024 1:44 AM EDT [facility] Comment:Reported eGFRcr in m L/min/1.73m2 is based the CKD-EPI 2020 equation that does not use a race coefficient. Blood Venous blood specimen / Unknown Venipuncture / Unknown 05/07/2024 12:46 AM EDT 05/07/2024 1:10 AM EDT us Maite Austin MD LAB BLOOD ORDERABLES Final Resu lt [facility] [address] [place] [address] * (ABNORMAL) CBC (05/07/2024 12:46 AM EDT) WBC Count 20.23(H) 3.70 - 10.30 10*3/uL LAB HEMATOLOGY METHOD 05/07/2024 1:19 AM EDT [facility] RBC Count 4.31 3.90 - 5.20 10*6/uL LAB HEMATOLOGY METHOD 05/07/2024 1:19 AM EDT [facility] HGB 12.8 11.2 - 15.7 g/dL LAB HEMATOLOGY METHOD 05/07/2024 1:19 AM EDT [facility] HCT 36.6 34.0 - 45.0 % LAB HEMATOLOGY METHOD 05/07/2024 1:19 AM EDT [facility] Platelet Count 249 155 - 369 10*3/uL LAB HEMATOLOGY METHOD 05/07/2024 1:19 AM EDT [facility] MCV 85 79 - 98 fL LAB HEMATOLOGY METHOD 05/07/2024 1:19 AM EDT [facility] MCH 29.7 26.0 - 32.0 pg LAB HEMATOLOGY METHOD 05/07/2024 1:19 AM EDT [facility] MCHC 35.0 30.7 - 35.5 g/dL LAB HEMATOLOGY METHOD 05/07/2024 1:19 AM EDT [facility] RDW 15.2(H) 11.5 - 14.5 % LAB HEMATOLOGY METHOD 05/07/2024 1:19 AM EDT [facility] MPV 10.3 8.8 - 12.5 fL LAB HEMATOLOGY METHOD 05/07/2024 1:19 AM EDT [facility] nRBC 0.0 <=0.0 per 100 WBCs LAB HEMATOLOGY METHOD 05/07/2024 1:19 AM EDT [facility] Blood Venous blood specimen / Unknown Venipuncture / Unknown 05/07/2024 12:46 AM EDT 05/07/2024 1:10 AM EDT us Maite Austin MD LAB BLOOD ORDERABLES Final Resu lt [facility] [address] [place] [address] * (ABNORMAL) Blood gas, arterial (05/07/2024 12:45 AM EDT) pH, Arterial 7.32(L) 7.35 - 7.45 LAB HEMATOLOGY METHOD 05/07/2024 1:11 AM EDT [facility] pCO2, Arterial 44 35 - 48 mmHg LAB HEMATOLOGY METHOD 05/07/2024 1:11 AM EDT [facility] pO2, Arterial 333(H) 83 - 108 mmHg LAB HEMATOLOGY METHOD 05/07/2024 1:11 AM EDT [facility] SO2, Measured, Arterial 100(H) 94 - 98 % LAB HEMATOLOGY METHOD 05/07/2024 1:11 AM EDT [facility] Base Excess, Arterial -3.4(L) -2.0 - 3.0 mmol/L LAB HEMATOLOGY METHOD 05/07/2024 1:11 AM EDT [facility] Bicarbonate, Calculated, Arterial 23 22 - 26 mmol/L LAB HEMATOLOGY METHOD 05/07/2024 1:11 AM EDT [facility] Hematocrit, Whole Blood 39.5 34.0 - 45.0 % LAB HEMATOLOGY METHOD 05/07/2024 1:11 AM EDT [facility] Sodium, Whole Blood 148(H) 136 - 145 mmol/L LAB HEMATOLOGY METHOD 05/07/2024 1:11 AM EDT [facility] Potassium, Whole Blood 4.7 3.6 - 4.9 mmol/L LAB HEMATOLOGY METHOD 05/07/2024 1:11 AM EDT [facility] Chloride, Whole Blood 117(H) 97 - 107 mmol/L LAB HEMATOLOGY METHOD 05/07/2024 1:11 AM EDT [facility] Glucose, Whole Blood 138(H) 74 - 99 mg/dL LAB HEMATOLOGY METHOD 05/07/2024 1:11 AM EDT [facility] Ionized Calcium, Whole Blood 4.6 4.6 - 5.1 mg/dL LAB HEMATOLOGY METHOD 05/07/2024 1:11 AM EDT [facility] Lactate, Arterial, Whole Blood 5.2(H) 0.5 - 1.6 mmol/L LAB HEMATOLOGY METHOD 05/07/2024 1:11 AM EDT [facility] Blood Arterial blood specimen / Unknown Arterial Puncture / Unknown 05/07/2024 12:45 AM EDT 05/07/2024 1:10 AM EDT us Maite Austin MD LAB BLOOD ORDERABLES Final Resu lt [facility] [address] [place] [address] * [place] [facility], E/M 30-74 MINUTES (05/06/2024 10:03 [...] Bilateral chest tubes, mediastinal drain, right IJ [place]-Ellis catheter with the tip overlying the main pulmonary artery, median sternotomy wires and mediastinal clips are present. Mild vascular congestion. No pleural effusion or visible pneumothorax. Procedure Note Camila Barth MD - 05/06/2024 CLINICAL INDICATION: Post-Op Cardiac Surgery TECHNIQUE: XR CHEST 1 VIEW COMPARISON: 05/03/2024 FINDINGS: The cardiomediastinal silhouette is prominent. Endotracheal tube tipoverlies mid thoracic trachea. Bilateral chest tubes, mediastinal drain,right IJ [place]-Ellis catheter with the tip overlying the main pulmonaryartery, median sternotomy wires and mediastinal clips are present. Mildvascular congestion. No pleural effusion or visible pneumothorax. IMPRESSION: Lines and catheters as above Mild vascular congestion CRITICAL RESULT: No COMMUNICATION: Per this written report. Drafted by Camila Barth MD on 05/06/2024 9:12 PM Final report signed by Camila Barth MD on 05/06/2024 9:13 PM Result [facility] Maite Austin MD IMG XR PROCEDURES Final Result * Transfuse RBC (05/06/2024 9:09 PM EDT) Result [facility] Alfie Khoury MD BLOOD TRANSFUSION ORDERABL ES Final Result * Transfuse RBC (05/06/2024 9:09 PM EDT) Result [facility] Alfie Khoury MD BLOOD TRANSFUSION ORDERABL ES Final Result * Transfuse RBC (05/06/2024 9:09 PM EDT) Result [facility] Alfie Khoury MD BLOOD TRANSFUSION ORDERABL ES Final Result * Transfuse platelets (05/06/2024 9:09 PM EDT) Result [facility] Alfie Khoury MD BLOOD TRANSFUSION ORDERABL ES Final Result * Transfuse RBC (05/06/2024 9:08 PM EDT) Result [facility] Alfie Khoury MD BLOOD TRANSFUSION ORDERABL ES Final Result * Transfuse platelets (05/06/2024 9:08 PM EDT) Result [facility] Alfie Khoury MD BLOOD TRANSFUSION ORDERABL ES Final Result * Deena auris Surveillance by PCR (05/06/2024 8:44 PM EDT) Deena auris PCR Result Not Detected Not Detected 05/07/2024 11:20 AM EDT [facility] Swab (Axilla and Groin) Non-blood Collection / Unknown 05/06/2024 8:44 PM EDT 05/06/2024 9:17 PM EDT Narrative [facility] - 05/07/2024 11:20 AM EDT This PCR assay was developed and its performance characteristics determined by [facility] as appropriate for clinical purposes. This assay has not been cleared or approved by the FDA, but is performed in a CLIA regulated laboratory that is qualified to perform high-complexity testing. Maite Austin MD LAB MICROBIOLOGY - GENERAL [place] Final Result Performing Organization Address City/[facility]/ZIP Co de Phone Number [facility] [address] [place] [address] * Multi Drug Resistance Test (05/06/2024 8:44 PM EDT) Culture No growth at day 1 05/07/2024 6:58 PM EDT [facility] Swab (Nares and Jacey Rectal) Non-blood Collection / Unknown 05/06/2024 8:44 PM EDT 05/06/2024 9:17 PM EDT us Maite Austin MD LAB MICROBIOLOGY - GENERAL ORDE LACHO Final Result Performing Organization Address [facility] Co de Phone Number [facility] [address] [place] [address] * (ABNORMAL) Blood gas, arterial (05/06/2024 8:43 PM EDT) pH, Arterial 7.29(L) 7.35 - 7.45 LAB HEMATOLOGY METHOD 05/06/2024 8:55 PM EDT [facility] pCO2, Arterial 54(H) 35 - 48 mmHg LAB HEMATOLOGY METHOD 05/06/2024 8:55 PM EDT [facility] pO2, Arterial 160(H) 83 - 108 mmHg LAB HEMATOLOGY METHOD 05/06/2024 8:55 PM EDT [facility] SO2, Measured, Arterial 100(H) 94 - 98 % LAB HEMATOLOGY METHOD 05/06/2024 8:55 PM EDT [facility] Base Excess, Arterial -1.7 -2.0 - 3.0 mmol/L LAB HEMATOLOGY METHOD 05/06/2024 8:55 PM EDT [facility] Bicarbonate, Calculated, Arterial 26 22 - 26 mmol/L LAB HEMATOLOGY METHOD 05/06/2024 8:55 PM EDT [facility] Hematocrit, Whole Blood 44.1 34.0 - 45.0 % LAB HEMATOLOGY METHOD 05/06/2024 8:55 PM EDT [facility] Sodium, Whole Blood 150(H) 136 - 145 mmol/L LAB HEMATOLOGY METHOD 05/06/2024 8:55 PM EDT [facility] Potassium, Whole Blood 4.4 3.6 - 4.9 mmol/L LAB HEMATOLOGY METHOD 05/06/2024 8:55 PM EDT [facility] Chloride, Whole Blood 115(H) 97 - 107 mmol/L LAB HEMATOLOGY METHOD 05/06/2024 8:55 PM EDT [facility] Glucose, Whole Blood 111(H) 74 - 99 mg/dL LAB HEMATOLOGY METHOD 05/06/2024 8:55 PM EDT [facility] Ionized Calcium, Whole Blood 4.7 4.6 - 5.1 mg/dL LAB HEMATOLOGY METHOD 05/06/2024 8:55 PM EDT [facility] Lactate, Arterial, Whole Blood 3.7(H) 0.5 - 1.6 mmol/L LAB HEMATOLOGY METHOD 05/06/2024 8:55 PM EDT [facility] Blood Arterial blood specimen / Unknown Arterial Puncture / Unknown 05/06/2024 8:43 PM EDT 05/06/2024 8:53 PM EDT us Maite Austin MD LAB BLOOD ORDERABLES Final Resu lt Performing Organization Address City/[facility]/ZIP Co de Phone Number [facility] [address] [place] [address] * (ABNORMAL) APTT (05/06/2024 8:42 PM EDT) aPTT 54(H) 25 - 35 sec LAB COAGULATION METHOD 05/06/2024 9:34 PM EDT [facility] Blood Venous blood specimen / Unknown Venipuncture / Unknown 05/06/2024 8:42 PM EDT 05/06/2024 8:53 PM EDT us Maite Austin MD LAB BLOOD ORDERABLES Final Resu lt Performing Organization Address City/[facility]/ZIP Co de Phone Number [facility] [address] [place] [address] * (ABNORMAL) Protime-INR (05/06/2024 8:42 PM EDT) Prothrombin Time 18.0(H) 12.0 - 14.3 sec LAB COAGULATION METHOD 05/06/2024 9:34 PM EDT [facility] INR 1.5(H) 0.9 - 1.1 LAB COAGULATION METHOD 05/06/2024 9:34 PM EDT [facility] Blood Venous blood specimen / Unknown Venipuncture / Unknown 05/06/2024 8:42 PM EDT 05/06/2024 8:53 PM EDT Narrative [facility] - 05/06/2024 9:34 PM EDT OPTIMAL INR RANGES FOR PATIENT ON ORAL ANTICOAGULANT THERAPY Prevention of venous thromboembolism INR 2.0 to 3.0 In patients with heart disease: Atrial fibrillation INR 2.0 to 3.0 Valvular heart disease INR 2.0 to 3.0 Tissue heart valves INR 2.0 to 3.0 Mechanical prosthetic valves INR 2.5 to 3.5 Prevention of recurrent NM INR 2.5 to 3.5 us Maite Austin MD LAB BLOOD ORDERABLES Final Resu lt [facility] [address] [place] [address] * Phosphorus (05/06/2024 8:42 PM EDT) Phosphorus, Plasma 2.6 2.5 - 4.5 mg/dL 05/06/2024 9:44 PM EDT [facility] Blood Venous blood specimen / Unknown Venipuncture / Unknown 05/06/2024 8:42 PM EDT 05/06/2024 8:53 PM EDT us Maite Austin MD LAB BLOOD ORDERABLES Final Resu lt [facility] [address] [place] [address] * (ABNORMAL) Magnesium (05/06/2024 8:42 PM EDT) Magnesium, Plasma 4.5(H) 1.9 - 2.4 mg/dL 05/06/2024 9:44 PM EDT [facility] Blood Venous blood specimen / Unknown Venipuncture / Unknown 05/06/2024 8:42 PM EDT 05/06/2024 8:53 PM EDT us Maite Austin MD LAB BLOOD ORDERABLES Final Resu lt [facility] [address] [place] [address] * (ABNORMAL) Basic metabolic panel (05/06/2024 8:42 PM EDT) Glucose, Plasma 112(H) 74 - 99 mg/dL 05/06/2024 9:44 PM EDT [facility] BUN, Plasma 12 7 - 21 mg/dL 05/06/2024 9:44 PM EDT [facility] Creatinine, Plasma 1.04 0.60 - 1.10 mg/dL 05/06/2024 9:44 PM EDT [facility] BUN/Creatinine Ratio 12 05/06/2024 9:44 PM EDT [facility] Sodium, Plasma 150(H) 136 - 145 mmol/L 05/06/2024 9:44 PM EDT [facility] Potassium, Plasma 4.8 3.6 - 4.9 mmol/L 05/06/2024 9:44 PM EDT [facility] Comment:Hemolyzed, result ma y be falsely increased. Chloride, Plasma 116(H) 97 - 107 mmol/L 05/06/2024 9:44 PM EDT [facility] CO2, Plasma 23 22 - 29 mmol/L 05/06/2024 9:44 PM EDT [facility] Anion Gap 11 6 - 16 mmol/L 05/06/2024 9:44 PM EDT [facility] Total Calcium, Plasma 8.1(L) 8.9 - 10.2 mg/dL 05/06/2024 9:44 PM EDT [facility] eGFRcr 64.0 mL/min/1.7 3m*2 05/06/2024 9:44 PM EDT [facility] Comment:Reported eGFRcr in m L/min/1.73m2 is based the CKD-EPI 2020 equation that does not use a race coefficient. Blood Venous blood specimen / Unknown Venipuncture / Unknown 05/06/2024 8:42 PM EDT 05/06/2024 8:53 PM EDT us Maite Austin MD LAB BLOOD ORDERABLES Final Resu lt [facility] [address] [place] [address] * (ABNORMAL) CBC (05/06/2024 8:42 PM EDT) WBC Count 23.57(H) 3.70 - 10.30 10*3/uL LAB HEMATOLOGY METHOD 05/06/2024 9:00 PM EDT [facility] RBC Count 4.79 3.90 - 5.20 10*6/uL LAB HEMATOLOGY METHOD 05/06/2024 9:00 PM EDT [facility] HGB 14.3 11.2 - 15.7 g/dL LAB HEMATOLOGY METHOD 05/06/2024 9:00 PM EDT [facility] HCT 40.8 34.0 - 45.0 % LAB HEMATOLOGY METHOD 05/06/2024 9:00 PM EDT [facility] Platelet Count 248 155 - 369 10*3/uL LAB HEMATOLOGY METHOD 05/06/2024 9:00 PM EDT [facility] MCV 85 79 - 98 fL LAB HEMATOLOGY METHOD 05/06/2024 9:00 PM EDT [facility] MCH 29.9 26.0 - 32.0 pg LAB HEMATOLOGY METHOD 05/06/2024 9:00 PM EDT [facility] MCHC 35.0 30.7 - 35.5 g/dL LAB HEMATOLOGY METHOD 05/06/2024 9:00 PM EDT [facility] RDW 14.6(H) 11.5 - 14.5 % LAB HEMATOLOGY METHOD 05/06/2024 9:00 PM EDT [facility] MPV 9.8 8.8 - 12.5 fL LAB HEMATOLOGY METHOD 05/06/2024 9:00 PM EDT [facility] nRBC 0.0 <=0.0 per 100 WBCs LAB HEMATOLOGY METHOD 05/06/2024 9:00 PM EDT [facility] Blood Venous blood specimen / Unknown Venipuncture / Unknown 05/06/2024 8:42 PM EDT 05/06/2024 8:53 PM EDT Maite Austin MD LAB BLOOD ORDERABLES Final Resu lt Performing Organization Address City/[facility]/ZIP Co de Phone Number [facility] [address] [place] [address] * ECG Adult - Upon Admissoin to CVICU (05/06/2024 8:38 PM EDT) EKG DIAGNOSIS CLASS Abnormal MUSE ECG Ventricular Rate 103 BPM MUSE ECG Atrial Rate 103 BPM MUSE ECG WI Interval 158 ms MUSE ECG QRSD Interval 96 ms MUSE ECG QT Interval 424 ms MUSE ECG QTC Interval 555 ms MUSE ECG P Procious 81 degrees MUSE ECG R Procious 71 degrees MUSE ECG T Wave Procious 14 degrees MUSE ECG Diagnosis Sinus tachycardia MUSE ECG Diagnosis Incomplete right bundle branch block MUSE ECG Diagnosis Septal infarct , age undetermined MUSE ECG Diagnosis Prolonged QT MUSE ECG Diagnosis Abnormal ECG MUSE ECG Diagnosis MUSE ECG Diagnosis Confirmed by Pratik Aiken ([id number]) on 05/07/2024 1:32:28 PM MUSE ECG 05/06/2024 8:38 PM EDT 05/07/2024 1:32 PM EDT Maite Austin MD ECG ORDERABLES Final Result Performing Organization Address City/[facility]/ZIP Co de Phone Number MUSE ECG * (ABNORMAL) POCT arterial blood gas gem (05/06/2024 7:39 PM EDT) pH, Arterial 7.30(L) 7.35 - 7.45 05/06/2024 7:40 PM EDT [facility] pCO2, Arterial 48 35 - 48 mm Hg 05/06/2024 7:40 PM EDT [facility] pO2, Arterial 72(L) 83 - 108 mm Hg 05/06/2024 7:40 PM EDT [facility] SO2, Arterial 97 94 - 98 % 05/06/2024 7:40 PM EDT [facility] Base Excess, Arterial -3.0(L) -2 - 3 mmol/L 05/06/2024 7:40 PM EDT [facility] HCO3, Arterial 23.6 22 - 26 mmol/L 05/06/2024 7:40 PM EDT [facility] Total Hemoglobin, Arterial, Whole Blood 11.7 11.2 - 15.7 g/dL 05/06/2024 7:40 PM EDT [facility] Hematocrit, Arterial 35.0 34.0 - 45.0 % 05/06/2024 7:40 PM EDT [facility] Sodium, Arterial 147(H) 136 - 145 mmol/L 05/06/2024 7:40 PM EDT [facility] Potassium, Arterial 4.7 3.6 - 4.9 mmol/L 05/06/2024 7:40 PM EDT [facility] Chloride, Whole Blood 115(H) 97 - 107 mmol/L 05/06/2024 7:40 PM EDT [facility] Glucose, Arterial 105(H) 74 - 99 mg/dL 05/06/2024 7:40 PM EDT [facility] Ionized Calcium, Arterial 4.8 4.6 - 5.1 mg/dL 05/06/2024 7:40 PM EDT [facility] Lactate, Arterial 3.7(H) 0.5 - 1.6 mmol/L 05/06/2024 7:40 PM EDT [facility] Body Temperature 37.0 Celsius 05/06/2024 7:40 PM EDT [facility] pH, Temp Corrected, Arterial 7.30(L) 7.35 - 7.45 05/06/2024 7:40 PM EDT [facility] pCO2, Temp Corrected, Arterial 48 35 - 48 mm Hg 05/06/2024 7:40 PM EDT [facility] pO2, Temp Corrected, Arterial 72(L) 83 - 108 mm Hg 05/06/2024 7:40 PM EDT [facility] C.O.D. Biller ID Jake Angeles 05/06/2024 7:40 PM EDT [facility] Blood, Arterial Whole blood specimen / Unknown 05/06/2024 7:39 PM EDT 05/06/2024 7:40 PM EDT us Maite Austin MD LAB POINT OF CARE TE ST DOCKED DEVICE UNSOLICITED RESULTS Final Result [facility] [address] [place] [address] * (ABNORMAL) POCT arterial blood gas gem (05/06/2024 7:09 PM EDT) pH, Arterial 7.28(L) 7.35 - 7.45 05/06/2024 7:11 PM EDT [facility] pCO2, Arterial 48 35 - 48 mm Hg 05/06/2024 7:11 PM EDT [facility] pO2, Arterial 304(H) 83 - 108 mm Hg 05/06/2024 7:11 PM EDT [facility] SO2, Arterial 100(H) 94 - 98 % 05/06/2024 7:11 PM EDT [facility] Base Excess, Arterial -4.1(L) -2 - 3 mmol/L 05/06/2024 7:11 PM EDT [facility] HCO3, Arterial 22.6 22 - 26 mmol/L 05/06/2024 7:11 PM EDT [facility] Total Hemoglobin, Arterial, Whole Blood 9.4(L) 11.2 - 15.7 g/dL 05/06/2024 7:11 PM EDT [facility] Hematocrit, Arterial 28.0(L) 34.0 - 45.0 % 05/06/2024 7:11 PM EDT [facility] Sodium, Arterial 149(H) 136 - 145 mmol/L 05/06/2024 7:11 PM EDT [facility] Potassium, Arterial 5.0(H) 3.6 - 4.9 mmol/L 05/06/2024 7:11 PM EDT [facility] Chloride, Whole Blood 116(H) 97 - 107 mmol/L 05/06/2024 7:11 PM EDT [facility] Glucose, Arterial 134(H) 74 - 99 mg/dL 05/06/2024 7:11 PM EDT [facility] Ionized Calcium, Arterial 4.6 4.6 - 5.1 mg/dL 05/06/2024 7:11 PM EDT [facility] Lactate, Arterial 5.1(H) 0.5 - 1.6 mmol/L 05/06/2024 7:11 PM EDT [facility] Body Temperature 37.0 Celsius 05/06/2024 7:11 PM [facility]T [facility] pH, Temp Corrected, Arterial 7.28(L) 7.35 - 7.45 05/06/2024 7:11 PM EDT [facility] pCO2, Temp Corrected, Arterial 48 35 - 48 mm Hg 05/06/2024 7:11 PM EDT [facility] pO2, Temp Corrected, Arterial 304(H) 83 - 108 mm Hg 05/06/2024 7:11 PM EDT [facility] C.O.D. Biller ID Jake Angeles 05/06/2024 7:11 PM EDT [facility] Blood, Arterial Whole blood specimen / Unknown 05/06/2024 7:09 PM EDT 05/06/2024 7:11 PM EDT us Maite Austin MD LAB POINT OF CARE TE ST DOCKED DEVICE UNSOLICITED RESULTS Final Result Performing Organization Address City/[facility] Co de Phone Number [facility] [address] [place] [address] * Prepare Leukocyte Reduced Platelets: 1 Units (05/06/2024 6:40 PM EDT) [facility] Product Code [id number] BLOO D BANK Dispense Status Transfused BLOOD BANK Blood Expiration Date [id number] BLOOD BANK Unit Number [id number] CH B LOOD BANK Product Blood Type 6200 BLOOD BANK Blood Type A+ BLOOD BANK Blood Venous blood specimen / Unknown us Alfie Khoury MD BLOOD BANK PRODUCT ORDERAB LES Final Result Performing Organization Address [facility] Co de Phone Number BLOOD BANK [address] [place] [address], * (ABNORMAL) POCT arterial blood gas gem (05/06/2024 6:38 PM EDT) pH, Arterial 7.29(L) 7.35 - 7.45 05/06/2024 6:40 PM EDT [facility] pCO2, Arterial 47 35 - 48 mm Hg 05/06/2024 6:40 PM T [facility] pO2, Arterial 425(H) 83 - 108 mm Hg 05/06/2024 6:40 PM T [facility] SO2, Arterial 100(H) 94 - 98 % 05/06/2024 6:40 PM T [facility] Base Excess, Arterial -3.8(L) -2 - 3 mmol/L 05/06/2024 6:40 PM T [facility] HCO3, Arterial 22.6 22 - 26 mmol/L 05/06/2024 6:40 PM T [facility] Total Hemoglobin, Arterial, Whole Blood 7.2(L) 11.2 - 15.7 g/dL 05/06/2024 6:40 PM [facility] Hematocrit, Arterial 22.0(L) 34.0 - 45.0 % 05/06/2024 6:40 PM T [facility] Sodium, Arterial 148(H) 136 - 145 mmol/L 05/06/2024 6:40 PM [facility] Potassium, Arterial 4.9 3.6 - 4.9 mmol/L 05/06/2024 6:40 PM [facility] Chloride, Whole Blood 116(H) 97 - 107 mmol/L 05/06/2024 6:40 PM [facility] Glucose, Arterial 141(H) 74 - 99 mg/dL 05/06/2024 6:40 PM [facility] Ionized Calcium, Arterial 4.8 4.6 - 5.1 mg/dL 05/06/2024 6:40 PM T [facility] Lactate, Arterial 5.4(H) 0.5 - 1.6 mmol/L 05/06/2024 6:40 PM T [facility] Body Temperature 37.0 Celsius 05/06/2024 6:40 PM T [facility] pH, Temp Corrected, Arterial 7.29(L) 7.35 - 7.45 05/06/2024 6:40 PM [facility] pCO2, Temp Corrected, Arterial 47 35 - 48 mm Hg 05/06/2024 6:40 PM EDT [facility] pO2, Temp Corrected, Arterial 425(H) 83 - 108 mm Hg 05/06/2024 6:40 PM EDT [facility] C.O.D. Biller ID Jake Angeles 05/06/2024 6:40 PM EDT [facility] Blood, Arterial Whole blood specimen / Unknown 05/06/2024 6:38 PM EDT 05/06/2024 6:40 PM EDT us Maite Austin MD LAB POINT OF CARE TE ST DOCKED DEVICE UNSOLICITED RESULTS Final Result [facility] [address] [place] [address] * (ABNORMAL) POCT arterial blood gas gem (05/06/2024 6:12 PM EDT) pH, Arterial 7.45 7.35 - 7.45 05/06/2024 6:13 PM EDT [facility] pCO2, Arterial 30(L) 35 - 48 mm Hg 05/06/2024 6:13 PM EDT [facility] pO2, Arterial 389(H) 83 - 108 mm Hg 05/06/2024 6:13 PM EDT [facility] SO2, Arterial 100(H) 94 - 98 % 05/06/2024 6:13 PM EDT [facility] Base Excess, Arterial -2.7(L) -2 - 3 mmol/L 05/06/2024 6:13 PM EDT [facility] HCO3, Arterial 20.9(L) 22 - 26 mmol/L 05/06/2024 6:13 PM EDT [facility] Total Hemoglobin, Arterial, Whole Blood 7.6(L) 11.2 - 15.7 g/dL 05/06/2024 6:13 PM EDT [facility] Hematocrit, Arterial 23.0(L) 34.0 - 45.0 % 05/06/2024 6:13 PM EDT [facility] Sodium, Arterial 149(H) 136 - 145 mmol/L 05/06/2024 6:13 PM EDT [facility] Potassium, Arterial 5.0(H) 3.6 - 4.9 mmol/L 05/06/2024 6:13 PM EDT [facility] Chloride, Whole Blood 118(H) 97 - 107 mmol/L 05/06/2024 6:13 PM EDT [facility] Glucose, Arterial 209(H) 74 - 99 mg/dL 05/06/2024 6:13 PM EDT [facility] Ionized Calcium, Arterial 4.4(L) 4.6 - 5.1 mg/dL 05/06/2024 6:13 PM EDT [facility] Lactate, Arterial 5.2(H) 0.5 - 1.6 mmol/L 05/06/2024 6:13 PM EDT [facility] Body Temperature 37.0 Celsius 05/06/2024 6:13 PM EDT [facility] pH, Temp Corrected, Arterial 7.45 7.35 - 7.45 05/06/2024 6:13 PM EDT [facility] pCO2, Temp Corrected, Arterial 30(L) 35 - 48 mm Hg 05/06/2024 6:13 PM EDT [facility] pO2, Temp Corrected, Arterial 389(H) 83 - 108 mm Hg 05/06/2024 6:13 PM EDT [facility] C.O.D. Biller ID Jake Angeles 05/06/2024 6:13 PM EDT [facility] Blood, Arterial Whole blood specimen / Unknown 05/06/2024 6:12 PM EDT 05/06/2024 6:13 PM EDT us Maite Austin MD LAB POINT OF CARE TE ST DOCKED DEVICE UNSOLICITED RESULTS Final Result [facility] [address] [place] [address] * (ABNORMAL) POCT arterial blood gas gem (05/06/2024 5:57 PM EDT) pH, Arterial 7.44 7.35 - 7.45 05/06/2024 5:58 PM EDT [facility] pCO2, Arterial 28(L) 35 - 48 mm Hg 05/06/2024 5:58 PM EDT [facility] pO2, Arterial 335(H) 83 - 108 mm Hg 05/06/2024 5:58 PM EDT [facility] SO2, Arterial 100(H) 94 - 98 % 05/06/2024 5:58 PM EDT [facility] Base Excess, Arterial -4.6(L) -2 - 3 mmol/L 05/06/2024 5:58 PM EDT [facility] HCO3, Arterial 19.0(L) 22 - 26 mmol/L 05/06/2024 5:58 PM EDT [facility] Total Hemoglobin, Arterial, Whole Blood 6.9(L) 11.2 - 15.7 g/dL 05/06/2024 5:58 PM EDT [facility] Hematocrit, Arterial 21.0(L) 34.0 - 45.0 % 05/06/2024 5:58 PM EDT [facility] Sodium, Arterial 144 136 - 145 mmol/L 05/06/2024 5:58 PM EDT [facility] Potassium, Arterial 5.7(H) 3.6 - 4.9 mmol/L 05/06/2024 5:58 PM EDT [facility] Chloride, Whole Blood 116(H) 97 - 107 mmol/L 05/06/2024 5:58 PM EDT [facility] Glucose, Arterial 177(H) 74 - 99 mg/dL 05/06/2024 5:58 PM EDT [facility] Ionized Calcium, Arterial 4.8 4.6 - 5.1 mg/dL 05/06/2024 5:58 PM EDT [facility] Lactate, Arterial 4.7(H) 0.5 - 1.6 mmol/L 05/06/2024 5:58 PM EDT [facility] Body Temperature 37.0 Celsius 05/06/2024 5:58 PM EDT [facility] pH, Temp Corrected, Arterial 7.44 7.35 - 7.45 05/06/2024 5:58 PM EDT [facility] pCO2, Temp Corrected, Arterial 28(L) 35 - 48 mm Hg 05/06/2024 5:58 PM EDT [facility] pO2, Temp Corrected, Arterial 335(H) 83 - 108 mm Hg 05/06/2024 5:58 PM EDT [facility] C.O.D. Biller ID Rosas michael Jake 05/06/2024 5:58 PM EDT [facility] Blood, Arterial Whole blood specimen / Unknown 05/06/2024 5:57 PM EDT 05/06/2024 5:58 PM EDT us Maite Austin MD LAB POINT OF CARE TE ST DOCKED DEVICE UNSOLICITED RESULTS Final Result [facility] [address] [place] [address] * (ABNORMAL) POCT arterial blood gas gem (05/06/2024 5:42 PM EDT) pH, Arterial 7.48(H) 7.35 - 7.45 05/06/2024 5:43 PM EDT [facility] pCO2, Arterial 37 35 - 48 mm Hg 05/06/2024 5:43 PM EDT [facility] pO2, Arterial 337(H) 83 - 108 mm Hg 05/06/2024 5:43 PM EDT [facility] SO2, Arterial 99(H) 94 - 98 % 05/06/2024 5:43 PM EDT [facility] Base Excess, Arterial 3.8(H) -2 - 3 mmol/L 05/06/2024 5:43 PM EDT [facility] HCO3, Arterial 27.6(H) 22 - 26 mmol/L 05/06/2024 5:43 PM EDT [facility] Total Hemoglobin, Arterial, Whole Blood 7.5(L) 11.2 - 15.7 g/dL 05/06/2024 5:43 PM EDT [facility] Hematocrit, Arterial 23.0(L) 34.0 - 45.0 % 05/06/2024 5:43 PM EDT [facility] Sodium, Arterial 144 136 - 145 mmol/L 05/06/2024 5:43 PM EDT [facility] Potassium, Arterial 6.8(HH) 3.6 - 4.9 mmol/L 05/06/2024 5:43 PM EDT [facility] Chloride, Whole Blood 113(H) 97 - 107 mmol/L 05/06/2024 5:43 PM EDT [facility] Glucose, Arterial 224(H) 74 - 99 mg/dL 05/06/2024 5:43 PM EDT [facility] Ionized Calcium, Arterial 4.9 4.6 - 5.1 mg/dL 05/06/2024 5:43 PM EDT [facility] Lactate, Arterial 5.3(H) 0.5 - 1.6 mmol/L 05/06/2024 5:43 PM EDT [facility] Body Temperature 37.0 Celsius 05/06/2024 5:43 PM EDT [facility] pH, Temp Corrected, Arterial 7.48(H) 7.35 - 7.45 05/06/2024 5:43 PM EDT [facility] pCO2, Temp Corrected, Arterial 37 35 - 48 mm Hg 05/06/2024 5:43 PM EDT [facility] pO2, Temp Corrected, Arterial 337(H) 83 - 108 mm Hg 05/06/2024 5:43 PM EDT [facility] C.O.D. Biller ID Yuri Hood 05/06/2024 5:43 PM EDT [facility] Blood, Arterial Whole blood specimen / Unknown 05/06/2024 5:42 PM EDT 05/06/2024 5:43 PM EDT us Maite Austin MD LAB POINT OF CARE TE ST DOCKED DEVICE UNSOLICITED RESULTS Final Result Performing Organization Address City/State/[facility] Co de Phone Number [facility] [address] [place] [address] * (ABNORMAL) POCT arterial blood gas gem (05/06/2024 5:08 PM EDT) pH, Arterial 7.38 7.35 - 7.45 05/06/2024 5:10 PM EDT [facility] pCO2, Arterial 37 35 - 48 mm Hg 05/06/2024 5:10 PM EDT [facility] pO2, Arterial 343(H) 83 - 108 mm Hg 05/06/2024 5:10 PM EDT [facility] SO2, Arterial 99(H) 94 - 98 % 05/06/2024 5:10 PM EDT [facility] Base Excess, Arterial -2.9(L) -2 - 3 mmol/L 05/06/2024 5:10 PM EDT [facility] HCO3, Arterial 21.9(L) 22 - 26 mmol/L 05/06/2024 5:10 PM EDT [facility] Total Hemoglobin, Arterial, Whole Blood 8.2(L) 11.2 - 15.7 g/dL 05/06/2024 5:10 PM EDT [facility] Hematocrit, Arterial 25.0(L) 34.0 - 45.0 % 05/06/2024 5:10 PM EDT [facility] Sodium, Arterial 144 136 - 145 mmol/L 05/06/2024 5:10 PM EDT [facility] Potassium, Arterial 6.9(HH) 3.6 - 4.9 mmol/L 05/06/2024 5:10 PM EDT [facility] Chloride, Whole Blood 112(H) 97 - 107 mmol/L 05/06/2024 5:10 PM EDT [facility] Glucose, Arterial 177(H) 74 - 99 mg/dL 05/06/2024 5:10 PM EDT [facility] Ionized Calcium, Arterial 4.0(L) 4.6 - 5.1 mg/dL 05/06/2024 5:10 PM EDT [facility] Lactate, Arterial 4.7(H) 0.5 - 1.6 mmol/L 05/06/2024 5:10 PM EDT [facility] Body Temperature 37.0 Celsius 05/06/2024 5:10 PM EDT [facility] pH, Temp Corrected, Arterial 7.38 7.35 - 7.45 05/06/2024 5:10 PM EDT [facility] pCO2, Temp Corrected, Arterial 37 35 - 48 mm Hg 05/06/2024 5:10 PM EDT [facility] pO2, Temp Corrected, Arterial 343(H) 83 - 108 mm Hg 05/06/2024 5:10 PM EDT [facility] C.O.D. Biller ID Yuri Hood 05/06/2024 5:10 PM EDT [facility] Blood, Arterial Whole blood specimen / Unknown 05/06/2024 5:08 PM EDT 05/06/2024 5:10 PM EDT us Maite Austin MD LAB POINT OF CARE TE ST DOCKED DEVICE UNSOLICITED RESULTS Final Result [facility] [address] [place] [id number] * (ABNORMAL) POCT arterial blood gas gem (05/06/2024 4:43 PM EDT) pH, Arterial 7.36 7.35 - 7.45 05/06/2024 4:44 PM EDT [facility] pCO2, Arterial 39 35 - 48 mm Hg 05/06/2024 4:44 PM T [facility] pO2, Arterial 348(H) 83 - 108 mm Hg 05/06/2024 4:44 PM T [facility] SO2, Arterial 100(H) 94 - 98 % 05/06/2024 4:44 PM T [facility] Base Excess, Arterial -3.2(L) -2 - 3 mmol/L 05/06/2024 4:44 PM T [facility] HCO3, Arterial 22.0 22 - 26 mmol/L 05/06/2024 4:44 PM T [facility] Total Hemoglobin, Arterial, Whole Blood 6.9(L) 11.2 - 15.7 g/dL 05/06/2024 4:44 PM [facility] Hematocrit, Arterial 21.0(L) 34.0 - 45.0 % 05/06/2024 4:44 PM T [facility] Sodium, Arterial 141 136 - 145 mmol/L 05/06/2024 4:44 PM T [facility] Potassium, Arterial 7.3(HH) 3.6 - 4.9 mmol/L 05/06/2024 4:44 PM [facility] Chloride, Whole Blood 112(H) 97 - 107 mmol/L 05/06/2024 4:44 PM [facility] Glucose, Arterial 156(H) 74 - 99 mg/dL 05/06/2024 4:44 PM [facility] Ionized Calcium, Arterial 4.4(L) 4.6 - 5.1 mg/dL 05/06/2024 4:44 PM [facility] Lactate, Arterial 4.0(H) 0.5 - 1.6 mmol/L 05/06/2024 4:44 PM T [facility] Body Temperature 37.0 Celsius 05/06/2024 4:44 PM T [facility] pH, Temp Corrected, Arterial 7.36 7.35 - 7.45 05/06/2024 4:44 PM T [facility] pCO2, Temp Corrected, Arterial 39 35 - 48 mm Hg 05/06/2024 4:44 PM T [facility] pO2, Temp Corrected, Arterial 348(H) 83 - 108 mm Hg 05/06/2024 4:44 PM EDT [facility] C.O.D. Biller ID Yuri Hood 05/06/2024 4:44 PM EDT [facility] Blood, Arterial Whole blood specimen / Unknown 05/06/2024 4:43 PM EDT 05/06/2024 4:44 PM EDT us Maite Austin MD LAB POINT OF CARE TE ST DOCKED DEVICE UNSOLICITED RESULTS Final Result [facility] [address] [place] [address] * (ABNORMAL) POCT arterial blood gas gem (05/06/2024 4:10 PM EDT) pH, Arterial 7.38 7.35 - 7.45 05/06/2024 4:12 PM EDT [facility] pCO2, Arterial 41 35 - 48 mm Hg 05/06/2024 4:12 PM EDT [facility] pO2, Arterial 276(H) 83 - 108 mm Hg 05/06/2024 4:12 PM EDT [facility] SO2, Arterial 99(H) 94 - 98 % 05/06/2024 4:12 PM EDT [facility] Base Excess, Arterial -0.8 -2 - 3 mmol/L 05/06/2024 4:12 PM EDT [facility] HCO3, Arterial 24.3 22 - 26 mmol/L 05/06/2024 4:12 PM EDT [facility] Total Hemoglobin, Arterial, Whole Blood 7.8(L) 11.2 - 15.7 g/dL 05/06/2024 4:12 PM EDT [facility] Hematocrit, Arterial 23.0(L) 34.0 - 45.0 % 05/06/2024 4:12 PM EDT [facility] Sodium, Arterial 143 136 - 145 mmol/L 05/06/2024 4:12 PM EDT [facility] Potassium, Arterial 6.3(H) 3.6 - 4.9 mmol/L 05/06/2024 4:12 PM EDT [facility] Chloride, Whole Blood 112(H) 97 - 107 mmol/L 05/06/2024 4:12 PM EDT [facility] Glucose, Arterial 134(H) 74 - 99 mg/dL 05/06/2024 4:12 PM EDT [facility] Ionized Calcium, Arterial 4.9 4.6 - 5.1 mg/dL 05/06/2024 4:12 PM EDT [facility] Lactate, Arterial 3.3(H) 0.5 - 1.6 mmol/L 05/06/2024 4:12 PM EDT [facility] Body Temperature 37.0 Celsius 05/06/2024 4:12 PM EDT [facility] pH, Temp Corrected, Arterial 7.38 7.35 - 7.45 05/06/2024 4:12 PM EDT [facility] pCO2, Temp Corrected, Arterial 41 35 - 48 mm Hg 05/06/2024 4:12 PM EDT [facility] pO2, Temp Corrected, Arterial 276(H) 83 - 108 mm Hg 05/06/2024 4:12 PM EDT [facility] C.O.D. Biller ID Yuri Hood 05/06/2024 4:12 PM EDT [facility] Blood, Arterial Whole blood specimen / Unknown 05/06/2024 4:10 PM EDT 05/06/2024 4:12 PM EDT us Maite Austin MD LAB POINT OF CARE TE ST DOCKED DEVICE UNSOLICITED RESULTS Final Result [facility] [address] [place] [address] * (ABNORMAL) POCT arterial blood gas gem (05/06/2024 3:45 PM EDT) pH, Arterial 7.37 7.35 - 7.45 05/06/2024 3:46 PM EDT [facility] pCO2, Arterial 38 35 - 48 mm Hg 05/06/2024 3:46 PM EDT [facility] pO2, Arterial 277(H) 83 - 108 mm Hg 05/06/2024 3:46 PM EDT [facility] SO2, Arterial 99(H) 94 - 98 % 05/06/2024 3:46 PM EDT [facility] Base Excess, Arterial -3.0(L) -2 - 3 mmol/L 05/06/2024 3:46 PM EDT [facility] HCO3, Arterial 22.0 22 - 26 mmol/L 05/06/2024 3:46 PM EDT [facility] Total Hemoglobin, Arterial, Whole Blood 7.3(L) 11.2 - 15.7 g/dL 05/06/2024 3:46 PM EDT [facility] Hematocrit, Arterial 22.0(L) 34.0 - 45.0 % 05/06/2024 3:46 PM EDT [facility] Sodium, Arterial 138 136 - 145 mmol/L 05/06/2024 3:46 PM EDT [facility] Potassium, Arterial 6.9(HH) 3.6 - 4.9 mmol/L 05/06/2024 3:46 PM EDT [facility] Chloride, Whole Blood 112(H) 97 - 107 mmol/L 05/06/2024 3:46 PM EDT [facility] Glucose, Arterial 129(H) 74 - 99 mg/dL 05/06/2024 3:46 PM EDT [facility] Ionized Calcium, Arterial 5.2(H) 4.6 - 5.1 mg/dL 05/06/2024 3:46 PM EDT [facility] Lactate, Arterial 3.2(H) 0.5 - 1.6 mmol/L 05/06/2024 3:46 PM EDT [facility] Body Temperature 37.0 Celsius 05/06/2024 3:46 PM EDT [facility] pH, Temp Corrected, Arterial 7.37 7.35 - 7.45 05/06/2024 3:46 PM EDT [facility] pCO2, Temp Corrected, Arterial 38 35 - 48 mm Hg 05/06/2024 3:46 PM EDT [facility] pO2, Temp Corrected, Arterial 277(H) 83 - 108 mm Hg 05/06/2024 3:46 PM EDT [facility] C.O.D. Biller COLBY Yuri Hood 05/06/2024 3:46 PM EDT [facility] Blood, Arterial Whole blood specimen / Unknown 05/06/2024 3:45 PM EDT 05/06/2024 3:46 PM EDT us Maite Austin MD LAB POINT OF CARE TE ST DOCKED DEVICE UNSOLICITED RESULTS Final Result [facility] [address] [place] [address] * Prepare Leukocyte Reduced Platelets: 1 Units (05/06/2024 3:04 PM EDT) Product Code [id number] KADEN BLOO D BANK Dispense Status Transfused BLOOD BANK Blood Expiration Date [id number] BLOOD BANK Unit Number [id number] CH B LOOD BANK Product Blood Type 5100 BLOOD BANK Blood Type O+ BLOOD BANK Blood Venous blood specimen / Unknown us Alfie Khoury MD BLOOD BANK PRODUCT ORDERAB LES Final Result Performing Organization Address City/[facility] Co de Phone Number BLOOD BANK [address] * (ABNORMAL) POCT arterial blood gas gem (05/06/2024 2:59 PM EDT) pH, Arterial 7.29(L) 7.35 - 7.45 05/06/2024 3:00 PM EDT [facility] pCO2, Arterial 42 35 - 48 mm Hg 05/06/2024 3:00 PM EDT [facility] pO2, Arterial 282(H) 83 - 108 mm Hg 05/06/2024 3:00 PM EDT [facility] SO2, Arterial 99(H) 94 - 98 % 05/06/2024 3:00 PM EDT [facility] Base Excess, Arterial -5.9(L) -2 - 3 mmol/L 05/06/2024 3:00 PM EDT [facility] HCO3, Arterial 20.2(L) 22 - 26 mmol/L 05/06/2024 3:00 PM EDT [facility] Total Hemoglobin, Arterial, Whole Blood 7.9(L) 11.2 - 15.7 g/dL 05/06/2024 3:00 PM EDT [facility] Hematocrit, Arterial 24.0(L) 34.0 - 45.0 % 05/06/2024 3:00 PM EDT [facility] Sodium, Arterial 141 136 - 145 mmol/L 05/06/2024 3:00 PM EDT [facility] Potassium, Arterial 6.5(HH) 3.6 - 4.9 mmol/L 05/06/2024 3:00 PM EDT [facility] Chloride, Whole Blood 113(H) 97 - 107 mmol/L 05/06/2024 3:00 PM EDT [facility] Glucose, Arterial 133(H) 74 - 99 mg/dL 05/06/2024 3:00 PM EDT [facility] Ionized Calcium, Arterial 2.9(LL) 4.6 - 5.1 mg/dL 05/06/2024 3:00 PM EDT [facility] Lactate, Arterial 2.0(H) 0.5 - 1.6 mmol/L 05/06/2024 3:00 PM EDT [facility] Body Temperature 37.0 Celsius 05/06/2024 3:00 PM EDT [facility] pH, Temp Corrected, Arterial 7.29(L) 7.35 - 7.45 05/06/2024 3:00 PM EDT [facility] pCO2, Temp Corrected, Arterial 42 35 - 48 mm Hg 05/06/2024 3:00 PM EDT [facility] pO2, Temp Corrected, Arterial 282(H) 83 - 108 mm Hg 05/06/2024 3:00 PM EDT [facility] C.O.D. Biller ID Yuri Hood 05/06/2024 3:00 PM EDT [facility] Blood, Arterial Whole blood specimen / Unknown 05/06/2024 2:59 PM EDT 05/06/2024 3:00 PM EDT Maite Austin MD LAB POINT OF CARE TE ST DOCKED DEVICE UNSOLICITED RESULTS Final Result [facility] [address] [place] [id number] * (ABNORMAL) POCT arterial blood gas gem (05/06/2024 2:37 PM EDT) pH, Arterial 7.32(L) 7.35 - 7.45 05/06/2024 2:38 PM EDT [facility] pCO2, Arterial 41 35 - 48 mm Hg 05/06/2024 2:38 PM EDT [facility] pO2, Arterial 201(H) 83 - 108 mm Hg 05/06/2024 2:38 PM EDT [facility] SO2, Arterial 99(H) 94 - 98 % 05/06/2024 2:38 PM EDT [facility] Base Excess, Arterial -4.7(L) -2 - 3 mmol/L 05/06/2024 2:38 PM EDT [facility] HCO3, Arterial 21.1(L) 22 - 26 mmol/L 05/06/2024 2:38 PM EDT [facility] Total Hemoglobin, Arterial, Whole Blood 9.2(L) 11.2 - 15.7 g/dL 05/06/2024 2:38 PM EDT [facility] Hematocrit, Arterial 28.0(L) 34.0 - 45.0 % 05/06/2024 2:38 PM EDT [facility] Sodium, Arterial 134(L) 136 - 145 mmol/L 05/06/2024 2:38 PM T [facility] Potassium, Arterial 7.8(HH) 3.6 - 4.9 mmol/L 05/06/2024 2:38 PM T [facility] Chloride, Whole Blood 106 97 - 107 mmol/L 05/06/2024 2:38 PM T [facility] Glucose, Arterial 159(H) 74 - 99 mg/dL 05/06/2024 2:38 PM T [facility] Ionized Calcium, Arterial 3.3(L) 4.6 - 5.1 mg/dL 05/06/2024 2:38 PM T [facility] Lactate, Arterial 2.2(H) 0.5 - 1.6 mmol/L 05/06/2024 2:38 PM EDT [facility] Body Temperature 37.0 Celsius 05/06/2024 2:38 PM T [facility] pH, Temp Corrected, Arterial 7.32(L) 7.35 - 7.45 05/06/2024 2:38 PM EDT [facility] pCO2, Temp Corrected, Arterial 41 35 - 48 mm Hg 05/06/2024 2:38 PM T [facility] pO2, Temp Corrected, Arterial 201(H) 83 - 108 mm Hg 05/06/2024 2:38 PM T [facility] C.O.D. Biller ID Yuri Hood 05/06/2024 2:38 PM T [facility] Blood, Arterial Whole blood specimen / Unknown 05/06/2024 2:37 PM EDT 05/06/2024 2:38 PM EDT us Maite Austin MD LAB POINT OF CARE TE ST DOCKED DEVICE UNSOLICITED RESULTS Final Result [facility] [address] [place] [address] * (ABNORMAL) POCT arterial blood gas gem (05/06/2024 2:11 PM EDT) pH, Arterial 7.34(L) 7.35 - 7.45 05/06/2024 2:12 PM EDT [facility] pCO2, Arterial 42 35 - 48 mm Hg 05/06/2024 2:12 PM EDT [facility] pO2, Arterial 272(H) 83 - 108 mm Hg 05/06/2024 2:12 PM EDT [facility] SO2, Arterial 100(H) 94 - 98 % 05/06/2024 2:12 PM EDT [facility] Base Excess, Arterial -2.9(L) -2 - 3 mmol/L 05/06/2024 2:12 PM EDT [facility] HCO3, Arterial 22.7 22 - 26 mmol/L 05/06/2024 2:12 PM EDT [facility] Total Hemoglobin, Arterial, Whole Blood 8.8(L) 11.2 - 15.7 g/dL 05/06/2024 2:12 PM EDT [facility] Hematocrit, Arterial 26.0(L) 34.0 - 45.0 % 05/06/2024 2:12 PM EDT [facility] Sodium, Arterial 131(L) 136 - 145 mmol/L 05/06/2024 2:12 PM EDT [facility] Potassium, Arterial 7.9(HH) 3.6 - 4.9 mmol/L 05/06/2024 2:12 PM EDT [facility] Chloride, Whole Blood 104 97 - 107 mmol/L 05/06/2024 2:12 PM EDT [facility] Glucose, Arterial 165(H) 74 - 99 mg/dL 05/06/2024 2:12 PM EDT [facility] Ionized Calcium, Arterial 3.4(L) 4.6 - 5.1 mg/dL 05/06/2024 2:12 PM EDT [facility] Lactate, Arterial 2.3(H) 0.5 - 1.6 mmol/L 05/06/2024 2:12 PM EDT [facility] Body Temperature 37.0 Celsius 05/06/2024 2:12 PM EDT [facility] pH, Temp Corrected, Arterial 7.34(L) 7.35 - 7.45 05/06/2024 2:12 PM EDT [facility] pCO2, Temp Corrected, Arterial 42 35 - 48 mm Hg 05/06/2024 2:12 PM EDT [facility] pO2, Temp Corrected, Arterial 272(H) 83 - 108 mm Hg 05/06/2024 2:12 PM EDT [facility] C.O.D. Biller ID Yuri Hood 05/06/2024 2:12 PM EDT [facility] Blood, Arterial Whole blood specimen / Unknown 05/06/2024 2:11 PM EDT 05/06/2024 2:12 PM EDT us Maite Austin MD LAB POINT OF CARE TE ST DOCKED DEVICE UNSOLICITED RESULTS Final Result Performing Organization Address City/State/[facility] Co de Phone Number [facility] [address] [place] [id number] * (ABNORMAL) POCT arterial blood gas gem (05/06/2024 1:33 PM EDT) pH, Arterial 7.31(L) 7.35 - 7.45 05/06/2024 1:34 PM EDT [facility] pCO2, Arterial 46 35 - 48 mm Hg 05/06/2024 1:34 PM EDT [facility] pO2, Arterial 332(H) 83 - 108 mm Hg 05/06/2024 1:34 PM EDT [facility] SO2, Arterial 100(H) 94 - 98 % 05/06/2024 1:34 PM EDT [facility] Base Excess, Arterial -2.9(L) -2 - 3 mmol/L 05/06/2024 1:34 PM EDT [facility] HCO3, Arterial 23.2 22 - 26 mmol/L 05/06/2024 1:34 PM EDT [facility] Total Hemoglobin, Arterial, Whole Blood 6.8(L) 11.2 - 15.7 g/dL 05/06/2024 1:34 PM EDT [facility] Hematocrit, Arterial 20.0(L) 34.0 - 45.0 % 05/06/2024 1:34 PM EDT [facility] Sodium, Arterial 133(L) 136 - 145 mmol/L 05/06/2024 1:34 PM EDT [facility] Potassium, Arterial 6.8(HH) 3.6 - 4.9 mmol/L 05/06/2024 1:34 PM EDT [facility] Chloride, Whole Blood 104 97 - 107 mmol/L 05/06/2024 1:34 PM EDT [facility] Glucose, Arterial 129(H) 74 - 99 mg/dL 05/06/2024 1:34 PM EDT [facility] Ionized Calcium, Arterial 3.5(L) 4.6 - 5.1 mg/dL 05/06/2024 1:34 PM EDT [facility] Lactate, Arterial 2.1(H) 0.5 - 1.6 mmol/L 05/06/2024 1:34 PM EDT [facility] Body Temperature 37.0 Celsius 05/06/2024 1:34 PM EDT [facility] pH, Temp Corrected, Arterial 7.31(L) 7.35 - 7.45 05/06/2024 1:34 PM EDT [facility] pCO2, Temp Corrected, Arterial 46 35 - 48 mm Hg 05/06/2024 1:34 PM EDT [facility] pO2, Temp Corrected, Arterial 332(H) 83 - 108 mm Hg 05/06/2024 1:34 PM EDT [facility] C.O.D. Biller ID Yrui Hood 05/06/2024 1:34 PM EDT [facility] Blood, Arterial Whole blood specimen / Unknown 05/06/2024 1:33 PM EDT 05/06/2024 1:34 PM EDT us Maite Austin MD LAB POINT OF CARE TE ST DOCKED DEVICE UNSOLICITED RESULTS Final Result Performing Organization Address City/State/[facility] Co de Phone Number [facility] [address] [place] [id number] * (ABNORMAL) POCT arterial blood gas gem (05/06/2024 1:05 PM EDT) pH, Arterial 7.35 7.35 - 7.45 05/07/2024 7:58 AM EDT [facility] pCO2, Arterial 45 35 - 48 mm Hg 05/07/2024 7:58 AM EDT [facility] pO2, Arterial 289(H) 83 - 108 mm Hg 05/07/2024 7:58 AM EDT [facility] SO2, Arterial 99(H) 94 - 98 % 05/07/2024 7:58 AM EDT [facility] Base Excess, Arterial -1.1 -2 - 3 mmol/L 05/07/2024 7:58 AM EDT [facility] HCO3, Arterial 24.8 22 - 26 mmol/L 05/07/2024 7:58 AM EDT [facility] Total Hemoglobin, Arterial, Whole Blood <6.0(LL) 11.2 - 15.7 g/dL 05/07/2024 7:58 AM EDT [facility] Sodium, Arterial 134(L) 136 - 145 mmol/L 05/07/2024 7:58 AM EDT [facility] Potassium, Arterial 5.9(H) 3.6 - 4.9 mmol/L 05/07/2024 7:58 AM EDT [facility] Chloride, Whole Blood 102 97 - 107 mmol/L 05/07/2024 7:58 AM EDT [facility] Glucose, Arterial 96 74 - 99 mg/dL 05/07/2024 7:58 AM EDT [facility] Ionized Calcium, Arterial 3.5(L) 4.6 - 5.1 mg/dL 05/07/2024 7:58 AM EDT [facility] Lactate, Arterial 1.6 0.5 - 1.6 mmol/L 05/07/2024 7:58 AM EDT [facility] Body Temperature 37.0 Celsius 05/07/2024 7:58 AM EDT [facility] pH, Temp Corrected, Arterial 7.35 7.35 - 7.45 05/07/2024 7:58 AM EDT [facility] pCO2, Temp Corrected, Arterial 45 35 - 48 mm Hg 05/07/2024 7:58 AM EDT [facility] pO2, Temp Corrected, Arterial 289(H) 83 - 108 mm Hg 05/07/2024 7:58 AM EDT [facility] C.O.D. Biller ID Alfie Turner 05/07/2024 7:58 AM EDT [facility] Blood, Arterial Whole blood specimen / Unknown 05/06/2024 1:05 PM EDT 05/07/2024 7:58 AM EDT us Maite Austin MD LAB POINT OF CARE TE ST DOCKED DEVICE UNSOLICITED RESULTS Final Result [facility] [address] [place] [address] * (ABNORMAL) POCT arterial blood gas gem (05/06/2024 11:25 AM EDT) pH, Arterial 7.23(LL) 7.35 - 7.45 05/06/2024 11:30 AM EDT [facility] pCO2, Arterial 64(HH) 35 - 48 mm Hg 05/06/2024 11:30 AM EDT [facility] pO2, Arterial 119(H) 83 - 108 mm Hg 05/06/2024 11:30 AM EDT [facility] SO2, Arterial 100(H) 94 - 98 % 05/06/2024 11:30 AM EDT [facility] Base Excess, Arterial -1.8 -2 - 3 mmol/L 05/06/2024 11:30 AM EDT [facility] HCO3, Arterial 26.8(H) 22 - 26 mmol/L 05/06/2024 11:30 AM EDT [facility] Total Hemoglobin, Arterial, Whole Blood 11.9 11.2 - 15.7 g/dL 05/06/2024 11:30 AM EDT [facility] Hematocrit, Arterial 36.0 34.0 - 45.0 % 05/06/2024 11:30 AM EDT [facility] Sodium, Arterial 136 136 - 145 mmol/L 05/06/2024 11:30 AM EDT [facility] Potassium, Arterial 3.8 3.6 - 4.9 mmol/L 05/06/2024 11:30 AM EDT [facility] Chloride, Whole Blood 103 97 - 107 mmol/L 05/06/2024 11:30 AM EDT [facility] Glucose, Arterial 136(H) 74 - 99 mg/dL 05/06/2024 11:30 AM EDT [facility] Ionized Calcium, Arterial 4.8 4.6 - 5.1 mg/dL 05/06/2024 11:30 AM EDT [facility] Lactate, Arterial 1.0 0.5 - 1.6 mmol/L 05/06/2024 11:30 AM EDT [facility] Body Temperature 37.0 Celsius 05/06/2024 11:30 AM EDT [facility] pH, Temp Corrected, Arterial 7.23(LL) 7.35 - 7.45 05/06/2024 11:30 AM EDT [facility] pCO2, Temp Corrected, Arterial 64(HH) 35 - 48 mm Hg 05/06/2024 11:30 AM EDT [facility] pO2, Temp Corrected, Arterial 119(H) 83 - 108 mm Hg 05/06/2024 11:30 AM EDT [facility] C.O.D. Biller ID Jake Angeles 05/06/2024 11:30 AM EDT [facility] Blood, Arterial Whole blood specimen / Unknown 05/06/2024 11:25 AM EDT 05/06/2024 11:30 AM EDT Erum Bahena MD LAB POINT OF CARE TEST DOCKED DEVICE UNSOLICITED RESULTS Final Result [facility] [address] [place] [id number] * (ABNORMAL) QPLUS (05/06/2024 10:36 AM EDT) [facility] Clot Time 161 104 - 166 Seconds 05/06/2024 10:49 AM EDT [facility] Clot Time Ratio 1.2 0.8 - 1.2 10:49 AM EDT [facility] Comment:The Clot Time Ratio (CTR) is a calculated parameter. CTR values of 0.8 1.2 are demonstrated to be typical of n ormal patient samples. Samples with CTR values > 1.4 are indicative of prolongation of the intrinsic pathway clotting time, likely due to the influence of unfractionated heparin. POCT Clot Stiffness 36.4(H) 13.0 - 33.2 hectoPascals 05/06/2024 10:49 AM EDT [facility] Platelet Contribution to Clot Stiffnes 31.9(H) 11.9 - 29.8 hectoPascals 05/06/2024 10:49 AM EDT [facility] Fibrinogen Contribution to Clot Stiffness 4.5(H) 1.0 - 3.7 hectoPascals 05/06/2024 10:49 AM EDT [facility] Heparinase Clot Time 134 103 - 153 Seconds 05/06/2024 10:49 AM EDT [facility] C.O.D. Biller ID Alfie Mueller 05/06/2024 10:49 AM EDT [facility] Device ID [id number] 05/06/2024 10:49 AM EDT [facility] Whole Blood 05/06/2024 10:3 6 AM EDT 05/06/2024 10:49 AM EDT Erum Bahena MD LAB POINT OF CARE TEST DOCKED DEVICE UNSOLICITED RESULTS Final Result [facility] [address] [place] [address] * (ABNORMAL) POCT arterial blood gas gem (05/06/2024 9:31 AM EDT) pH, Arterial 7.36 7.35 - 7.45 05/06/2024 9:36 AM EDT [facility] pCO2, Arterial 47 35 - 48 mm Hg 05/06/2024 9:36 AM EDT [facility] pO2, Arterial 250(H) 83 - 108 mm Hg 05/06/2024 9:36 AM EDT [facility] SO2, Arterial 100(H) 94 - 98 % 05/06/2024 9:36 AM EDT [facility] Base Excess, Arterial 0.7 -2 - 3 mmol/L 05/06/2024 9:36 AM EDT [facility] HCO3, Arterial 26.6(H) 22 - 26 mmol/L 05/06/2024 9:36 AM EDT [facility] Total Hemoglobin, Arterial, Whole Blood 12.2 11.2 - 15.7 g/dL 05/06/2024 9:36 AM EDT [facility] Hematocrit, Arterial 37.0 34.0 - 45.0 % 05/06/2024 9:36 AM EDT [facility] Sodium, Arterial 136 136 - 145 mmol/L 05/06/2024 9:36 AM EDT [facility] Potassium, Arterial 4.0 3.6 - 4.9 mmol/L 05/06/2024 9:36 AM EDT [facility] Chloride, Whole Blood 103 97 - 107 mmol/L 05/06/2024 9:36 AM EDT [facility] Glucose, Arterial 94 74 - 99 mg/dL 05/06/2024 9:36 AM EDT [facility] Ionized Calcium, Arterial 4.8 4.6 - 5.1 mg/dL 05/06/2024 9:36 AM EDT [facility] Lactate, Arterial 1.4 0.5 - 1.6 mmol/L 05/06/2024 9:36 AM EDT [facility] Body Temperature 37.0 Celsius 05/06/2024 9:36 AM EDT [facility] pH, Temp Corrected, Arterial 7.36 7.35 - 7.45 05/06/2024 9:36 AM EDT [facility] pCO2, Temp Corrected, Arterial 47 35 - 48 mm Hg 05/06/2024 9:36 AM EDT [facility] pO2, Temp Corrected, Arterial 250(H) 83 - 108 mm Hg 05/06/2024 9:36 AM EDT [facility] C.O.D. Biller ID Alfie Turner 05/06/2024 9:36 AM EDT [facility] Blood, Arterial Whole blood specimen / Unknown 05/06/2024 9:31 AM EDT 05/06/2024 9:36 AM EDT Erum Bahena MD LAB POINT OF CARE TEST DOCKED DEVICE UNSOLICITED RESULTS Final Result [facility] [address] [place] [address] * Prepare Leukocyte Reduced RBC: 4 Units (05/06/2024 9:04 AM EDT) Product Code [id number] BLOO D BANK Dispense Status Transfused BLOOD BANK Blood Expiration Date [id number] BLOOD BANK Unit Number [id number] CH B LOOD BANK Product Blood Type 7300 CH BLOOD BANK Blood Type B+ CH BLOOD BANK Crossmatch Compatible CH BLOOD BANK Product Code [id number] CH BLOO D BANK Dispense Status Transfused CH BLOOD BANK Blood Expiration Date [id number] BLOOD BANK Unit Number [id number] CH B LOOD BANK Product Blood Type 7300 CH BLOOD BANK Blood Type B+ CH BLOOD BANK Crossmatch Compatible CH BLOOD BANK Product Code [id number] CH BLOO D BANK Dispense Status Transfused CH BLOOD BANK Blood Expiration Date [id number] BLOOD BANK Unit Number [id number] CH B LOOD BANK Product Blood Type 7300 CH BLOOD BANK Blood Type B+ CH BLOOD BANK Crossmatch Compatible CH BLOOD BANK Product Code [id number] CH BLOO D BANK Dispense Status Transfused CH BLOOD BANK Blood Expiration Date [id number] BLOOD BANK Unit Number [id number] CH B LOOD BANK Product Blood Type 7300 CH BLOOD BANK Blood Type B+ CH BLOOD BANK Crossmatch Compatible BLOOD BANK Other us Shola Sheridan APRN BLOOD BANK PRODUCT ORDERABLE S Final Result [facility]ANK [address] * Light Green Top (05/06/2024 12:07 AM EDT) Extra Hold for add-ons 05/06/2024 3:01 AM EDT [facility] Comment:Auto resulted. Blood Venous blood specimen / Unknown 05/06/2024 12:07 AM EDT 05/06/2024 12:26 AM EDT us Erum Bahena MD LAB BLOOD ORDERABLES Namrata l Result [facility] [address] [place] [address] * Anti Xa Level by Unfractionated Heparin - Heparin Drip Titration (05/06/2024 12:07 AM EDT) Anti Xa Level Unfractionated Heparin 0.36 <1.00 IU/mL LAB COAGULATION METHOD 05/06/2024 12:51 AM EDT [facility] Blood Venous blood specimen / Unknown Venipuncture / Unknown 05/06/2024 12:07 AM EDT 05/06/2024 12:26 AM EDT Narrative [facility] - 05/06/2024 12:51 AM EDT Therapeutic Range: UFH Full Dose and ACS/NM protocols*: 0.30 - 0.70 IU/mL UFH Low Dose protocol*: 0.25 - 0.50 IU/mL UFH prophylaxis: Not established Marylu Carvajal ACCOUNTS RECEIVABLE SPECIALIST, DNP LAB BLOOD ORDERABLES Final Result [facility] [address] [place] [address] * (ABNORMAL) CBC W/O differential - Hit surveillance (05/06/2024 12:07 AM EDT) WBC Count 15.16(H) 3.70 - 10.30 10*3/uL LAB HEMATOLOGY METHOD 05/06/2024 12:36 AM EDT [facility] RBC Count 3.96 3.90 - 5.20 10*6/uL LAB HEMATOLOGY METHOD 05/06/2024 12:36 AM EDT [facility] HGB 12.1 11.2 - 15.7 g/dL LAB HEMATOLOGY METHOD 05/06/2024 12:36 AM EDT [facility] HCT 34.5 34.0 - 45.0 % LAB HEMATOLOGY METHOD 05/06/2024 12:36 AM EDT [facility] Platelet Count 390(H) 155 - 369 10*3/uL LAB HEMATOLOGY METHOD 05/06/2024 12:36 AM EDT [facility] MCV 87 79 - 98 fL LAB HEMATOLOGY METHOD 05/06/2024 12:36 AM EDT [facility] MCH 30.6 26.0 - 32.0 pg LAB HEMATOLOGY METHOD 05/06/2024 12:36 AM EDT [facility] MCHC 35.1 30.7 - 35.5 g/dL LAB HEMATOLOGY METHOD 05/06/2024 12:36 AM EDT [facility] RDW 13.2 11.5 - 14.5 % LAB HEMATOLOGY METHOD 05/06/2024 12:36 AM EDT [facility] MPV 10.3 8.8 - 12.5 fL LAB HEMATOLOGY METHOD 05/06/2024 12:36 AM EDT [facility] nRBC 0.0 <=0.0 per 100 WBCs LAB HEMATOLOGY METHOD 05/06/2024 12:36 AM EDT [facility] Blood Venous blood specimen / Unknown Venipuncture / Unknown 05/06/2024 12:07 AM EDT 05/06/2024 12:25 AM EDT Marylu Carvajal ACCOUNTS RECEIVABLE SPECIALIST, DNP LAB BLOOD ORDERABLES Final Result [facility] [address] [place] [address] * (ABNORMAL) P2Y12 Platelet Receptor Blockade, Verify Now PRU (05/06/2024 12:07 AM EDT) P2Y12 PRU 134(L) 194 - 418 PRU 05/06/2024 12:32 AM EDT [facility] Blood Venous blood specimen / Unknown Venipuncture / Unknown 05/06/2024 12:07 AM EDT 05/06/2024 12:23 AM EDT Narrative [facility] - 05/06/2024 12:32 AM EDT [...] to the clinician. Testing performed in the [facility]. Trinity Anne Yousif ACCOUNTS RECEIVABLE SPECIALIST LAB BLOOD ORDERABLES Final Res ult Performing Organization Address City/[facility]/ZIP Co de Phone Number [facility] [address] [place] [address] * Type and Screen (05/05/2024 4:16 PM EDT) ABO/Rh B Positive 05/05/2024 3:59 PM EDT [facility]LO[facility]ANK Antibody Screen Negative 05/05/2024 3:59 PM EDT [facility] Specimen Expiration 05/08/2024 23:59 05/05/2024 3:59 PM EDT [facility] Blood Venous blood specimen / Unknown Venipuncture / Unknown 05/05/2024 4:16 PM EDT 05/05/2024 4:33 PM EDT [facility] TEST ORDERABLES Final Result Performing Organization Address [facility] de Phone Number BLOOD BANK [address] [place] [address] * Anti Xa Level by Unfractionated Heparin - Heparin Drip Titration (05/05/2024 6:19 AM EDT) Anti Xa Level Unfractionated Heparin 0.39 <1.00 IU/mL LAB COAGULATION METHOD 05/05/2024 7:07 AM EDT [facility] Blood Venous blood specimen / Unknown Venipuncture / Unknown 05/05/2024 6:19 AM EDT 05/05/2024 6:32 AM EDT Narrative [facility] - 05/05/2024 7:07 AM EDT Therapeutic Range: UFH Full Dose and ACS/NM protocols*: 0.30 - 0.70 IU/mL UFH Low Dose protocol*: 0.25 - 0.50 IU/mL UFH prophylaxis: Not established Marylu Carpio Carvajal ACCOUNTS RECEIVABLE SPECIALIST, DNP LAB BLOOD ORDERABLES Final Result [facility] [address] [place] [address] * (ABNORMAL) CBC W/O differential - Hit surveillance (05/05/2024 12:32 AM EDT) WBC Count 13.31(H) 3.70 - 10.30 10*3/uL LAB HEMATOLOGY METHOD 05/05/2024 12:56 AM EDT [facility] RBC Count 3.98 3.90 - 5.20 10*6/uL LAB HEMATOLOGY METHOD 05/05/2024 12:56 AM EDT [facility] HGB 12.2 11.2 - 15.7 g/dL LAB HEMATOLOGY METHOD 05/05/2024 12:56 AM EDT [facility] HCT 35.1 34.0 - 45.0 % LAB HEMATOLOGY METHOD 05/05/2024 12:56 AM EDT [facility] Platelet Count 378(H) 155 - 369 10*3/uL LAB HEMATOLOGY METHOD 05/05/2024 12:56 AM EDT [facility] MCV 88 79 - 98 fL LAB HEMATOLOGY METHOD 05/05/2024 12:56 AM EDT [facility] MCH 30.7 26.0 - 32.0 pg LAB HEMATOLOGY METHOD 05/05/2024 12:56 AM EDT [facility] MCHC 34.8 30.7 - 35.5 g/dL LAB HEMATOLOGY METHOD 05/05/2024 12:56 AM EDT [facility] RDW 13.2 11.5 - 14.5 % LAB HEMATOLOGY METHOD 05/05/2024 12:56 AM EDT [facility] MPV 10.1 8.8 - 12.5 fL LAB HEMATOLOGY METHOD 05/05/2024 12:56 AM EDT [facility] nRBC 0.0 <=0.0 per 100 WBCs LAB HEMATOLOGY METHOD 05/05/2024 12:56 AM EDT [facility] Blood Venous blood specimen / Unknown Venipuncture / Unknown 05/05/2024 12:32 AM EDT 05/05/2024 12:40 AM EDT Marylu Carvajal APRN, DNP LAB BLOOD ORDERABLES Final Result Performing Organization Address City/[facility]/ZIP Co de Phone Number [facility] [address] [place] [address] * (ABNORMAL) P2Y12 Platelet Receptor Blockade, Verify Now PRU (05/05/2024 12:32 AM EDT) P2Y12 PRU 132(L) 194 - 418 PRU 05/05/2024 12:56 AM EDT [facility] Blood Venous blood specimen / Unknown Venipuncture / Unknown 05/05/2024 12:32 AM EDT 05/05/2024 12:41 AM EDT Narrative [facility] - 05/05/2024 12:56 AM EDT [...] to the clinician. Testing performed in the [facility]. Trinity Yousif APRN LAB BLOOD ORDERABLES Final Res ult Performing Organization Address City/[facility]/ZIP Co de Phone Number [facility] [address] [place] [address] * Magnesium (05/05/2024 12:32 AM EDT) Pathologist [facility] Magnesium, Plasma 1.9 1.9 - 2.4 mg/dL 05/05/2024 1:14 AM EDT [facility] Blood Venous blood specimen / Unknown Venipuncture / Unknown 05/05/2024 12:32 AM EDT 05/05/2024 12:40 AM EDT us Trinity Yousif ACCOUNTS RECEIVABLE SPECIALIST LAB BLOOD ORDERABLES Final Res ult [facility] [address] [place] [address] * (ABNORMAL) Comprehensive metabolic panel (05/05/2024 12:32 AM EDT) Glucose, Plasma 147(H) 74 - 99 mg/dL 05/05/2024 1:14 AM EDT [facility] BUN, Plasma 11 7 - 21 mg/dL 05/05/2024 1:14 AM EDT [facility] Creatinine, Plasma 0.84 0.60 - 1.10 mg/dL 05/05/2024 1:14 AM EDT [facility] BUN/Creatinine Ratio 13 05/05/2024 1:14 AM EDT [facility] Sodium, Plasma 136 136 - 145 mmol/L 05/05/2024 1:14 AM EDT [facility] Potassium, Plasma 3.9 3.6 - 4.9 mmol/L 05/05/2024 1:14 AM EDT [facility] Chloride, Plasma 103 97 - 107 mmol/L 05/05/2024 1:14 AM EDT [facility] CO2, Plasma 20(L) 22 - 29 mmol/L 05/05/2024 1:14 AM EDT [facility] Anion Gap 13 6 - 16 mmol/L 05/05/2024 1:14 AM EDT [facility] Total Calcium, Plasma 8.6(L) 8.9 - 10.2 mg/dL 05/05/2024 1:14 AM EDT [facility] Total Protein 6.5 6.3 - 7.9 g/dL 05/05/2024 1:14 AM EDT [facility] Albumin, Plasma 3.7 3.5 - 5.2 g/dL 05/05/2024 1:14 AM EDT [facility] AST, Plasma 36(H) 10 - 35 U/L 05/05/2024 1:14 AM EDT [facility] Comment:Hemolyzed, result ma y be falsely increased. ALT, Plasma 28 10 - 35 U/L 05/05/2024 1:14 AM EDT [facility] Alkaline Phosphatase, Plasma 142(H) 35 - 104 U/L 05/05/2024 1:14 AM EDT [facility] Total Bilirubin, Plasma <0.2(L) 0.2 - 1.1 mg/dL 05/05/2024 1:14 AM EDT [facility] eGFRcr 82.7 mL/min/1.7 3m*2 05/05/2024 1:14 AM EDT [facility] Comment:Reported eGFRcr in m L/min/1.73m2 is based the CKD-EPI 2020 equation that does not use a race coefficient. Blood Venous blood specimen / Unknown Venipuncture / Unknown 05/05/2024 12:32 AM EDT 05/05/2024 12:40 AM EDT us Trinity Yousif APRN LAB BLOOD ORDERABLES Final Res ult [facility] [address] [place] [address] * Anti Xa Level by Unfractionated Heparin - Heparin Drip Titration (05/05/2024 12:32 AM EDT) Anti Xa Level Unfractionated Heparin 0.32 <1.00 IU/mL LAB COAGULATION METHOD 05/05/2024 1:04 AM EDT [facility] Blood Venous blood specimen / Unknown Venipuncture / Unknown 05/05/2024 12:32 AM EDT 05/05/2024 12:40 AM EDT Narrative [facility] - 05/05/2024 1:04 AM EDT Therapeutic Range: UFH Full Dose and ACS/NM protocols*: 0.30 - 0.70 IU/mL UFH Low Dose protocol*: 0.25 - 0.50 IU/mL UFH prophylaxis: Not established Marylu Carvajal APRN, DNP LAB BLOOD ORDERABLES Final Result [facility] [address] [place] [address] * Anti Xa Level by Unfractionated Heparin - Heparin Drip Titration (05/04/2024 4:05 PM EDT) Anti Xa Level Unfractionated Heparin 0.23 <1.00 IU/mL LAB COAGULATION METHOD 05/04/2024 4:47 PM EDT [facility] Blood Venous blood specimen / Unknown Venipuncture / Unknown 05/04/2024 4:05 PM EDT 05/04/2024 4:15 PM EDT Narrative [facility] - 05/04/2024 4:47 PM EDT Therapeutic Range: UFH Full Dose and ACS/NM protocols*: 0.30 - 0.70 IU/mL UFH Low Dose protocol*: 0.25 - 0.50 IU/mL UFH prophylaxis: Not established Marylu Carvajal APRN, DNP LAB BLOOD ORDERABLES Final Result [facility] [address] [place] [address] * (ABNORMAL) P2Y12 Platelet Receptor Blockade, Verify Now PRU (05/04/2024 9:36 AM EDT) P2Y12 PRU 78(L) 194 - 418 PRU 05/04/2024 10:04 AM EDT [facility] Blood Venous blood specimen / Unknown Venipuncture / Unknown 05/04/2024 9:36 AM EDT 05/04/2024 9:46 AM EDT Narrative [facility] - 05/04/2024 10:04 AM EDT [...] to the clinician. Testing performed in the [facility]. Trinity Yousif APRN LAB BLOOD ORDERABLES Final Res ult Performing Organization Address [facility] Co de Phone Number [facility] [address] [place] [address] * Anti Xa Level by Unfractionated Heparin - Heparin Drip Titration (05/04/2024 9:36 AM EDT) Anti Xa Level Unfractionated Heparin <0.11 <1.00 IU/mL LAB COAGULATION METHOD 05/04/2024 10:13 AM EDT [facility] Blood Venous blood specimen / Unknown Venipuncture / Unknown 05/04/2024 9:36 AM EDT 05/04/2024 9:47 AM EDT Narrative [facility] - 05/04/2024 10:13 AM EDT Therapeutic Range: UFH Full Dose and ACS/NM protocols*: 0.30 - 0.70 IU/mL UFH Low Dose protocol*: 0.25 - 0.50 IU/mL UFH prophylaxis: Not established Marylu Carvajal APRN, JORGE LAB BLOOD ORDERABLES Final Result Performing Organization Address City/[facility] Co de Phone Number [facility] [address] [place] [address] * (ABNORMAL) POCT glucose meter (05/04/2024 5:13 AM EDT) POCT Glucose 114(H) 74 - 99 mg/dL 05/04/2024 5:15 AM EDT [facility] Comment:Accuracy of a [...] Comment 05/04/2024 5:15 AM EDT [facility] C.O.D. Biller ID Daisy Toth 05/04/2024 5:15 AM EDT [facility] Device ID [id number] 05/04/2024 5:15 AM EDT [facility] Specimen Type POC Capillary 05/04/2024 5:15 AM EDT [facility] Blood Capillary blood specimen / Unknown 05/04/2024 5:13 AM EDT 05/04/2024 5:15 AM EDT Erum Bahena MD LAB POINT OF CARE TEST DOCKED DEVICE UNSOLICITED RESULTS Final Result Performing Organization Address City/[facility] Co de Phone Number [facility] [address] [place] [address] * Anti Xa Level by Unfractionated Heparin - Heparin Drip Titration (05/04/2024 2:50 AM EDT) Anti Xa Level Unfractionated Heparin 0.32 <1.00 IU/mL LAB COAGULATION METHOD 05/04/2024 3:16 AM EDT [facility] Blood Venous blood specimen / Unknown Venipuncture / Unknown 05/04/2024 2:50 AM EDT 05/04/2024 2:56 AM EDT Narrative [facility] - 05/04/2024 3:16 AM EDT Therapeutic Range: UFH Full Dose and ACS/NM protocols*: 0.30 - 0.70 IU/mL UFH Low Dose protocol*: 0.25 - 0.50 IU/mL UFH prophylaxis: Not established Marylu Carvajal APRN, DNP LAB BLOOD ORDERABLES Final Result [facility] [address] [place] [address] * (ABNORMAL) CBC W/O differential - Hit surveillance (05/04/2024 2:50 AM EDT) WBC Count 12.80(H) 3.70 - 10.30 10*3/uL LAB HEMATOLOGY METHOD 05/04/2024 3:27 AM EDT [facility] RBC Count 3.92 3.90 - 5.20 10*6/uL LAB HEMATOLOGY METHOD 05/04/2024 3:27 AM EDT [facility] HGB 11.8 11.2 - 15.7 g/dL LAB HEMATOLOGY METHOD 05/04/2024 3:27 AM EDT [facility] HCT 34.8 34.0 - 45.0 % LAB HEMATOLOGY METHOD 05/04/2024 3:27 AM EDT [facility] Platelet Count 372(H) 155 - 369 10*3/uL LAB HEMATOLOGY METHOD 05/04/2024 3:27 AM EDT [facility] MCV 89 79 - 98 fL LAB HEMATOLOGY METHOD 05/04/2024 3:27 AM EDT [facility] MCH 30.1 26.0 - 32.0 pg LAB HEMATOLOGY METHOD 05/04/2024 3:27 AM EDT [facility] MCHC 33.9 30.7 - 35.5 g/dL LAB HEMATOLOGY METHOD 05/04/2024 3:27 AM EDT [facility] RDW 13.3 11.5 - 14.5 % LAB HEMATOLOGY METHOD 05/04/2024 3:27 AM EDT [facility] MPV 10.1 8.8 - 12.5 fL LAB HEMATOLOGY METHOD 05/04/2024 3:27 AM EDT [facility] nRBC 0.0 <=0.0 per 100 WBCs LAB HEMATOLOGY METHOD 05/04/2024 3:27 AM EDT [facility] Blood Venous blood specimen / Unknown Venipuncture / Unknown 05/04/2024 2:50 AM EDT 05/04/2024 2:56 AM EDT Marylu Carvajal [employer] RECEIVABLE SPECIALIST, DNP LAB BLOOD ORDERABLES Final Result [facility] [address] [place] [address] * (ABNORMAL) P2Y12 Platelet Receptor Blockade, Verify Now PRU (05/04/2024 2:50 AM EDT) Pathologist [facility] P2Y12 PRU 100(L) 194 - 418 PRU 05/04/2024 3:15 AM EDT [facility] Blood Venous blood specimen / Unknown Venipuncture / Unknown 05/04/2024 2:50 AM EDT 05/04/2024 3:02 AM EDT Narrative [facility] - 05/04/2024 3:15 AM EDT [...] to the clinician. Testing performed in the [facility]. us hSola Sheridan APRN LAB BLOOD ORDERABLES Final R esult [facility] [address] [place] [address] * Magnesium, Plasma (05/04/2024 2:50 AM EDT) Pathologist [facility] Magnesium, Plasma 2.0 1.9 - 2.4 mg/dL 05/04/2024 3:24 AM EDT [facility] Blood Venous blood specimen / Unknown Venipuncture / Unknown 05/04/2024 2:50 AM EDT 05/04/2024 2:56 AM EDT Marylu Carvajal APRN, DNP LAB BLOOD ORDERABLES Final Result [facility] [address] [place] [address] * (ABNORMAL) Basic metabolic panel (05/04/2024 2:50 AM EDT) Pathologist [facility] Glucose, Plasma 109(H) 74 - 99 mg/dL 05/04/2024 3:24 AM EDT [facility] BUN, Plasma 12 7 - 21 mg/dL 05/04/2024 3:24 AM EDT [facility] Creatinine, Plasma 0.94 0.60 - 1.10 mg/dL 05/04/2024 3:24 AM EDT [facility] BUN/Creatinine Ratio 13 05/04/2024 3:24 AM EDT [facility] Sodium, Plasma 139 136 - 145 mmol/L 05/04/2024 3:24 AM EDT [facility] Potassium, Plasma 3.5(L) 3.6 - 4.9 mmol/L 05/04/2024 3:24 AM EDT [facility] Chloride, Plasma 104 97 - 107 mmol/L 05/04/2024 3:24 AM EDT [facility] CO2, Plasma 25 22 - 29 mmol/L 05/04/2024 3:24 AM EDT [facility] Anion Gap 10 6 - 16 mmol/L 05/04/2024 3:24 AM EDT [facility] Total Calcium, Plasma 8.4(L) 8.9 - 10.2 mg/dL 05/04/2024 3:24 AM EDT [facility] eGFRcr 72.3 mL/min/1.7 3m*2 05/04/2024 3:24 AM EDT [facility] Comment:Reported eGFRcr in m L/min/1.73m2 is based the CKD-EPI 2020 equation that does not use a race coefficient. Blood Venous blood specimen / Unknown Venipuncture / Unknown 05/04/2024 2:50 AM EDT 05/04/2024 2:56 AM EDT us Marylu Carvajal APRN, DNP LAB BLOOD ORDERABLES Final Result [facility] [address] [place] [address] * XR Chest 2 Views (05/03/2024 12:19 [...] on 05/03/2024 1:34 PM us Shola Sheridan APRN IMG XR PROCEDURES Final Resu lt * Pulmonary function testing (05/03/2024 8:37 AM EDT) [facility] [id number] 2.23 L 05/03/2024 8:31 AM EDT VYAIRE [...] 1.84 05/03/2024 8:31 AM EDT VYAIRE PFT DSZ0MTFITDVUU -2.47 05/03/2024 8:31 AM EDT VYAIRE PFT FEV1_Pre%Pred 65 % % 05/03/2024 8:31 AM EDT VYAIRE PFT FEV1 PREDAUTH US_Quanjer GLI (2011) 05/03/2024 8:31 AM EDT VYAIRE PFT FEV1 Z-SCORE -2.47 05/03/2024 8:31 AM EDT VYAIRE PFT FEV1/FVC PRE 69.79 % 05/03/2024 8:31 AM EDT VYAIRE PFT FMW2TRNZCHO 80 05/03/2024 8:31 AM EDT VYAIRE PFT EAL1QDGRMZ 69 05/03/2024 8:31 AM EDT VYAIRE PFT DYE0MIXPXARKQSTB -1.53 05/04/19 8:31 AM EDT VYAIRE PFT LBM1EJOQVE%PRED 87 % % 8:31 AM EDT VYAIRE PFT [id number] US_Quanjer GLI (2011) 05/03/2024 8:31 AM EDT VYAIRE PFT JWQ3KAAAHTEOP -2 05/03/2024 8:31 AM EDT VYAIRE PFT ROH15-40% PRE 0.96 L/s 05/03/2024 8:31 AM EDT VYAIRE PFT OTB08-23%_Pred 2.36 05/03/2024 8:31 AM EDT VYAIRE PFT FQJ5132%LLN 1.27 05/03/2024 8:31 AM EDT VYAIRE PFT AMO1331%PREZSCORE -2.25 025 8:31 AM EDT VYAIRE PFT SYN1617%PRE%PRED 41 % % 05/04/19 8:31 AM EDT VYAIRE PFT PKY4823%[facility] GLI (2011) 05/03/2024 8:31 AM EDT VYAIRE PFT PEF PRE 4.76 L/s 05/03/2024 8:31 AM EDT VYAIRE PFT PEF PRED 6.14 05/03/2024 8:31 AM EDT VYAIRE PFT PEF LLN 4.58 05/03/2024 8:31 AM EDT VYAIRE PFT PEFPREZSCORE -1.46 05/03/2024 8:31 AM EDT VYAIRE PFT PEFPRE%PRED 78 % % 05/03/2024 8:31 AM EDT VYAIRE PFT PEF PREDAUTH NHANES III (1998) 05/03/2024 8:31 AM EDT VYAIRE PFT QJVHBWAFFZTKNNSE3OMZ 19.34 ml/(min* mmHg) 05/03/2024 8:31 AM EDT VYAIRE PFT DLCOSINGLEBREATH PRED 18.72 05/03/2024 8:31 AM EDT VYAIRE PFT DLCOSINGLEBREATH LLN 14.50 04/15 8:31 AM EDT VYAIRE PFT DLCOSINGLEBREATH Z-SCORE 0.22 05/03/2024 8:31 AM EDT VYAIRE PFT DLCOSINGLEBREATH % PRED 103.3 % 05/03/2024 8:31 AM EDT VYAIRE PFT DLCOSINGLEBREATH PREDAUTH Stanokavithavic TLCO GLI (2019) 05/03/2024 8:31 AM EDT VYAIRE PFT DLCOSINGLEBREATH Z-SCORE 0.22 05/03/2024 8:31 AM EDT VYAIRE PFT JRYFXGWGNCBAPEOCD1MS E 20.34 ml/(min* mmHg) 05/03/2024 8:31 AM EDT VYAIRE PFT DLCOCSINGLEBREATH PRED 18.72 05/03/2024 8:31 AM EDT VYAIRE PFT DLCOCSINGLEBREATH LLN 14.50 05/03/2024 8:31 AM EDT VYAIRE PFT DLCOCSINGLEBREATH Z-SCORE 0.56 05/03/2024 8:31 AM EDT VYAIRE PFT DLCOCSINGLEBREATH % PRED 108.7 % 05/03/2024 8:31 AM EDT VYAIRE PFT DLCOCSINGLEBREATH PREDAUT Juan Manuelokavithavic TLCO GLI (2019) 05/03/2024 8:31 AM EDT VYAIRE PFT PQENIH7HOI 4.32 ml/(min* mmHg*L) 05/03/2024 8:31 AM EDT VYAIRE PFT DLCOVAPRED 4.40 05/03/2024 8:31 AM EDT VYAIRE PFT DLCOVALLN 3.42 05/03/2024 8:31 AM EDT VYAIRE PFT DLCOVAZSCORE -0.13 05/03/2024 8:31 AM EDT VYAIRE PFT DLCOVA%PRED 98.2 % 05/03/2024 8:31 AM EDT VYAIRE PFT DLCOVAPREDAUTH Stanojevic TLCO GLI (2019) 05/03/2024 8:31 AM EDT VYAIRE PFT DLCOVAZSCORE -0.13 05/03/2024 8:31 AM EDT VYAIRE PFT PTCGAHIWQ9KOH 4.55 ml/(min* mmHg*L) 05/03/2024 8:31 AM EDT VYAIRE PFT DLCOC SB/VA PRED 4.40 05/04/19 8:31 AM EDT VYAIRE PFT DLCOC SB/VA LLN 3.42 8:31 AM EDT VYAIRE PFT DLCOC SB/VA Z-SCORE 0.23 05/03 8:31 AM EDT VYAIRE PFT DLCOC SB/VA % PRED 103.3 % 2024 8:31 AM EDT VYAIRE PFT DLCOC SB/VA [facility] Elvis TLCO GLI (2019) 05/03/2024 8:31 AM EDT VYAIRE PFT DLCOC SB/VA Z-SCORE 0.23 05/03 8:31 AM EDT VYAIRE PFT KWCAHPWWPTKMQY3BGX 4.47 L 2024 8:31 AM EDT VYAIRE PFT VASINGLEBREATH PRED 4.29 05/03 8:31 AM EDT VYAIRE PFT VASINGLEBREATH LLN 3.49 2024 8:31 AM EDT VYAIRE PFT VASINGLEBREATH Z-SCORE 0.37 05/03/2024 8:31 AM EDT VYAIRE PFT VASINGLEBREATH % PRED 104.4 % 05/03/2024 8:31 AM EDT VYAIRE PFT VASINGLEBREATH [facility] Elvis TLCO GLI (2019) 05/03/2024 8:31 AM EDT VYAIRE PFT VASINGLEBREATH Z-SCORE 0.37 05/03/2024 8:31 AM EDT VYAIRE PFT GZNRAUZMIPXYIBM7PHQ 2.44 L 05/03 8:31 AM EDT VYAIRE PFT IVCSINGLEBREATH PRED 2.99 03/ 8:31 AM EDT VYAIRE PFT IVCSINGLEBREATH LLN 2.31 05/03 8:31 AM EDT VYAIRE PFT IVCSINGLEBREATH Z-SCORE -1.32 05/03/2024 8:31 AM EDT VYAIRE PFT IVCSINGLEBREATH % PRED 81.7 % 05/03/2024 8:31 AM EDT VYAIRE PFT IVCSINGLEBREATH PREDAUTH US_Quanjer GLI (2011) 05/03/2024 8:31 AM EDT VYAIRE PFT HB PRE 11.90 g(Hb)/dL 05/03/2024 8:31 AM EDT VYAIRE PFT DKA3TZD 4.18 L 05/03/2024 8:31 AM EDT VYAIRE [...] % 05/03/2024 8:31 AM EDT VYAIRE PFT ICPREDAUT [place] Lung volumes GLI (2019)__ 05/03/2024 8:31 AM EDT VYAIRE PFT SAMZMRPS4DTG 2.31 L 05/03/2024 8:31 AM EDT VYAIRE PFT FRCPLETH PRED 2.37 05/03/2024 8:31 AM EDT VYAIRE PFT FRCPLETH LLN 1.68 05/03/2024 8:31 AM EDT VYAIRE PFT FRCPLETH ULN 3.24 05/03/2024 8:31 AM EDT VYAIRE PFT FRCPLETH Z-SCORE -0.13 05/04/19 8:31 AM EDT VYAIRE PFT FRCPLETH % PRED 97.5 % 8:31 AM EDT VYAIRE PFT FRCPLETH PREDAUT [place] Lung volumes GLI (2019)__ 05/03/2024 8:31 AM EDT VYAIRE PFT PXV5BVX 0.42 L 05/03/2024 8:31 AM EDT VYAIRE PFT ERVPRED 0.82 05/03/2024 8:31 AM EDT VYAIRE PFT ERVLLN 0.31 05/03/2024 8:31 AM EDT VYAIRE PFT ERVULN 1.54 05/03/2024 8:31 AM EDT VYAIRE PFT ERV Z-SCORE -1.23 05/03/2024 8:31 AM EDT VYAIRE PFT ERV%PRED 51.3 % 05/03/2024 8:31 AM EDT VYAIRE PFT ERVPREDAUT [place] Lung volumes GLI (2019)__ 05/03/2024 8:31 [...] (2019)__ 05/03/2024 8:31 AM EDT VYAIRE PFT RV%OJR3QOR 45.22 % 05/03/2024 8:31 AM EDT VYAIRE PFT RV%TLCPRED 31 05/03/2024 8:31 AM EDT VYAIRE PFT RV%TLCLLN 20 05/03/2024 8:31 AM EDT VYAIRE PFT RV%TLCULN 42 05/03/2024 8:31 AM EDT VYAIRE PFT RV%TLCZSCORE 2.12 05/03/2024 8:31 AM EDT VYAIRE PFT RV%TLC%PRED 147.7 % 05/03/2024 8:31 AM EDT VYAIRE PFT RV%TLCPREDAUTH [place] Lung volumes GLI (2019)__ 05/03/2024 8:31 AM EDT VYAIRE PFT TZS4DBG 2.40 L 05/03/2024 8:31 AM EDT VYAIRE PFT Anatomical Region Laterality Modality PFT 05/03/2024 8:06 AM EDT Narrative 05/04/2024 4:54 PM EDT Pulmonary Function Testing Report Rere Hunter 53 y.o. underwent pulmonary function testing today at the [facility]. The patient underwent spirometry, lung volumes by [...] Marylu Carvajal APRN, DNP PFT ORDERABLES Namrata l Result * Anti Xa Level by Unfractionated Heparin - Heparin Drip Titration (05/03/2024 7:44 AM EDT) Anti Xa Level Unfractionated Heparin 0.30 <1.00 IU/mL LAB COAGULATION METHOD 05/03/2024 8:34 AM EDT [facility] Blood Venous blood specimen / Unknown Venipuncture / Unknown 05/03/2024 7:44 AM EDT 05/03/2024 7:51 AM EDT Narrative [facility] - 05/03/2024 8:34 AM EDT Therapeutic Range: UFH Full Dose and ACS/NM protocols*: 0.30 - 0.70 IU/mL UFH Low Dose protocol*: 0.25 - 0.50 IU/mL UFH prophylaxis: Not established Marylu Carvajal APRN, DNP LAB BLOOD ORDERABLES Final Result [facility] [address] [place] [address] * (ABNORMAL) CBC W/O differential - Hit surveillance (05/03/2024 4:09 AM EDT) WBC Count 11.21(H) 3.70 - 10.30 10*3/uL LAB HEMATOLOGY METHOD 05/03/2024 4:47 AM EDT [facility] RBC Count 3.87(L) 3.90 - 5.20 10*6/uL LAB HEMATOLOGY METHOD 05/03/2024 4:47 AM EDT [facility] HGB 11.9 11.2 - 15.7 g/dL LAB HEMATOLOGY METHOD 05/03/2024 4:47 AM EDT [facility] HCT 34.0 34.0 - 45.0 % LAB HEMATOLOGY METHOD 05/03/2024 4:47 AM EDT [facility] Platelet Count 353 155 - 369 10*3/uL LAB HEMATOLOGY METHOD 05/03/2024 4:47 AM EDT [facility] MCV 88 79 - 98 fL LAB HEMATOLOGY METHOD 05/03/2024 4:47 AM EDT [facility] MCH 30.7 26.0 - 32.0 pg LAB HEMATOLOGY METHOD 05/03/2024 4:47 AM EDT [facility] MCHC 35.0 30.7 - 35.5 g/dL LAB HEMATOLOGY METHOD 05/03/2024 4:47 AM EDT [facility] RDW 13.4 11.5 - 14.5 % LAB HEMATOLOGY METHOD 05/03/2024 4:47 AM EDT [facility] MPV 10.0 8.8 - 12.5 fL LAB HEMATOLOGY METHOD 05/03/2024 4:47 AM EDT [facility] nRBC 0.0 <=0.0 per 100 WBCs LAB HEMATOLOGY METHOD 05/03/2024 4:47 AM EDT [facility] Blood Venous blood specimen / Unknown Venipuncture / Unknown 05/03/2024 4:09 AM EDT 05/03/2024 4:28 AM EDT Marylu Carvajal ACCOUNTS RECEIVABLE SPECIALIST, DNP LAB BLOOD ORDERABLES Final Result [facility] [address] [place] [address] * (ABNORMAL) P2Y12 Platelet Receptor Blockade, Verify Now PRU (05/03/2024 4:09 AM EDT) P2Y12 PRU 137(L) 194 - 418 PRU 05/03/2024 5:26 AM EDT [facility] Blood Venous blood specimen / Unknown Venipuncture / Unknown 05/03/2024 4:09 AM EDT 05/03/2024 4:20 AM EDT Narrative [facility] - 05/03/2024 5:26 AM EDT [...] to the clinician. Testing performed in the [facility]. us Anne Marie PHILLIP LAB BLOOD ORDERABLES Final Result Performing Organization Address City/[facility]/ZIP Co de Phone Number [facility] [address] [place] [address] * Magnesium, Plasma (05/03/2024 4:09 AM EDT) Magnesium, Plasma 2.1 1.9 - 2.4 mg/dL 05/03/2024 4:54 AM EDT [facility] Blood Venous blood specimen / Unknown Venipuncture / Unknown 05/03/2024 4:09 AM EDT 05/03/2024 4:21 AM EDT Marylu Carvajal APRN, JORGE LAB BLOOD ORDERABLES Final Result Performing Organization Address City/[facility]/ZIP Co de Phone Number [facility] [address] [place] [address] * (ABNORMAL) Basic metabolic panel (05/03/2024 4:09 AM EDT) Glucose, Plasma 106(H) 74 - 99 mg/dL 05/03/2024 4:54 AM EDT [facility] BUN, Plasma 11 7 - 21 mg/dL 05/03/2024 4:54 AM EDT [facility] Creatinine, Plasma 0.94 0.60 - 1.10 mg/dL 05/03/2024 4:54 AM EDT [facility] BUN/Creatinine Ratio 12 05/03/2024 4:54 AM EDT [facility] Sodium, Plasma 137 136 - 145 mmol/L 05/03/2024 4:54 AM EDT [facility] Potassium, Plasma 3.7 3.6 - 4.9 mmol/L 05/03/2024 4:54 AM EDT [facility] Chloride, Plasma 103 97 - 107 mmol/L 05/03/2024 4:54 AM EDT [facility] CO2, Plasma 25 22 - 29 mmol/L 05/03/2024 4:54 AM EDT [facility] Anion Gap 9 6 - 16 mmol/L 05/03/2024 4:54 AM EDT [facility] Total Calcium, Plasma 8.6(L) 8.9 - 10.2 mg/dL 05/03/2024 4:54 AM EDT [facility] eGFRcr 72.3 mL/min/1.7 3m*2 05/03/2024 4:54 AM EDT [facility] Comment:Reported eGFRcr in m L/min/1.73m2 is based the CKD-EPI 2020 equation that does not use a race coefficient. Blood Venous blood specimen / Unknown Venipuncture / Unknown 05/03/2024 4:09 AM EDT 05/03/2024 4:21 AM EDT Marylu Carvajal ACCOUNTS RECEIVABLE SPECIALIST, DNP LAB BLOOD ORDERABLES Final Result [facility] [address] [place] [address] * Anti Xa Level by Unfractionated Heparin - Heparin Drip Titration (05/02/2024 11:36 PM EDT) Anti Xa Level Unfractionated Heparin 0.35 <1.00 IU/mL LAB COAGULATION METHOD 05/03/2024 12:04 AM EDT [facility] Blood Venous blood specimen / Unknown Venipuncture / Unknown 05/02/2024 11:36 PM EDT 05/02/2024 11:41 PM EDT Narrative [facility] - 05/03/2024 12:04 AM EDT Therapeutic Range: UFH Full Dose and ACS/NM protocols*: 0.30 - 0.70 IU/mL UFH Low Dose protocol*: 0.25 - 0.50 IU/mL UFH prophylaxis: Not established [facility] Wei ANTOINE, JORGE LAB BLOOD ORDERABLES Final Result Performing Organization Address [facility] de Phone Number [facility] [address] [place] [address] * Anti Xa Level by Unfractionated Heparin - Heparin Drip Titration (05/02/2024 6:45 PM EDT) Anti Xa Level Unfractionated Heparin 0.30 <1.00 IU/mL LAB COAGULATION METHOD 05/02/2024 8:02 PM EDT [facility] Blood Venous blood specimen / Unknown Venipuncture / Unknown 05/02/2024 6:45 PM EDT 05/02/2024 6:59 PM EDT Narrative [facility] - 05/02/2024 8:02 PM EDT Therapeutic Range: UFH Full Dose and ACS/NM protocols*: 0.30 - 0.70 IU/mL UFH Low Dose protocol*: 0.25 - 0.50 IU/mL UFH prophylaxis: Not established [facility] APRN, JORGE LAB BLOOD ORDERABLES Final Result Performing Organization Address [facility] de Phone Number [facility] [address] [place] [address] * VAS US Carotid Duplex Bilateral (05/02/2024 [...] report signed by Giovanni Rashid MD, HAI, GILLIAN, CRUZITO on05/03/2024 10:23 AM Marylu Carvajal APRN, DNP [...] signed by Giovanni Rashid MD, HAI, FSCESAR, RPSARAH on 05/03/2024 10:23 AM Narrative 05/03/2024 10:23 [...] LAB COAGULATION METHOD 05/02/2024 2:05 PM EDT [facility] Blood Venous blood specimen / Unknown Venipuncture / Unknown 05/02/2024 1:05 PM EDT 05/02/2024 1:29 PM EDT Narrative [facility] - 05/02/2024 2:05 PM EDT Therapeutic Range: UFH Full Dose and ACS/NM protocols*: 0.30 - 0.70 IU/mL UFH Low Dose protocol*: 0.25 - 0.50 IU/mL UFH prophylaxis: Not established Marylu Carvajal APRN, DNP LAB BLOOD ORDERABLES Final Result [facility] [address] [place] [address] * ECHO, ADULT TRANSTHORACIC COMPLETE W/ 3D [...] mean PAP 12 mmHg ALEXIA ISCV PA WI(ACCEL) 13.6 mmHg ALEXIA ISCV PA acc slope [...] is no recent study available for direct uqub-ss-[id number] comparison. Left Ventricle Based on the linear [...] is no recent study available for direct cubp-zi-zadr comparison. Marylu Carvajal APRN, DNP CV ECHO PROCEDURES F inal Result * Anti Xa Level by Unfractionated Heparin - Heparin Drip Titration (05/02/2024 6:28 AM EDT) Anti Xa Level Unfractionated Heparin 0.28 <1.00 IU/mL LAB COAGULATION METHOD 05/02/2024 7:03 AM EDT [facility] Blood Venous blood specimen / Unknown Venipuncture / Unknown 05/02/2024 6:28 AM EDT 05/02/2024 6:34 AM EDT Narrative [facility] - 05/02/2024 7:03 AM EDT Therapeutic Range: UFH Full Dose and ACS/NM protocols*: 0.30 - 0.70 IU/mL UFH Low Dose protocol*: 0.25 - 0.50 IU/mL UFH prophylaxis: Not established Marylu Carvajal APRN, DNP LAB BLOOD ORDERABLES Final Result [facility] [address] [place] [address] * (ABNORMAL) Troponin T, High Sensitivity, 2 Hour, Plasma (05/02/2024 2:23 AM EDT) Troponin T, High Sensitivity, 2 Hour 31(H) <14 ng/L 05/02/2024 2:53 AM EDT [facility] Troponin Delta 3 <10 ng/L 05/02/2024 2:53 AM EDT [facility] Troponin Delta Interpretation Not Significant 05/02/2024 2:53 AM EDT [facility] Comment:Not Significant. No acute change in troponin observed between the baseline and 2 hour samples. Blood Venous blood specimen / Unknown Venipuncture / Unknown 05/02/2024 2:23 AM EDT 05/02/2024 2:26 AM EDT Marylu Carvajal APRN, DNP LAB BLOOD ORDERABLES Final Result [facility] [address] [place] [address] * CT Chest wo IV Contrast (05/02/2024 [...] MD on 05/02/2024 8:22 AM Marylu Carvajal ACCOUNTS RECEIVABLE SPECIALIST, DNP IMG CT PROCEDURES Fi nal Result * Hemoglobin A1c (05/01/2024 11:58 PM EDT) Hemoglobin A1c 5.3 <5.7 % 05/02/2024 6:29 AM EDT [facility] Blood Venous blood specimen / Unknown 05/01/2024 11:58 PM EDT 05/02/2024 12:08 AM EDT Narrative [facility] - 05/02/2024 6:29 AM EDT HA1C Interpretive Data: Diagnosis of Diabetes: Diabetic > or = 6.5% Pre-diabetic 5.7 to 6.4% Non-diabetic < or = 5.6% Glycemic Targets for Type I and Type II Diabetics: Non- Adults <7.0% Adults <6.0% Children and Adolescents <7.5% Source: [place] [employer]. Standards of medical care in diabetes,2017. Diabetes Care.2017:40 (suppl 1):S1-S135. HbA1c assay performed by an ion-exchange chromatography method that is certified traceable to the DCCT. Anne Marie PHILLIP LAB BLOOD ORDERABLES Final Result [facility] [address] [place] [address] * (ABNORMAL) Lipid panel (05/01/2024 11:58 PM EDT) Cholesterol, Plasma 247(H) <200 mg/dL 05/02/2024 6:36 AM EDT [facility] Comment: Cholesterol Reference Range (age >17 years): Desirable <200 mg/dL Borderline 200 to 239 mg/dL Undesirable >239 mg/dL HDL 36(L) >=50 mg/dL 05/02/2024 6:36 AM EDT [facility] Comment: HDL Cholesterol Reference Ranges (age >17 years): Female, acceptable > or = 50 mg/dL Male, acceptable > or = 40 mg/dL Triglycerides, Plasma 271(H) <150 mg/dL 05/02/2024 6:36 AM EDT [facility] Comment: Triglyceride Reference Range (age >17 years): Desirable: <150 mg/dL Borderline high: 150 to 199 mg/dL High: 200 to 499 mg/dL Very high: >499 mg/dL Increased risk of pancreatitis: >1000 mg/dL Cholesterol/HDL Ratio 7 05/02/2024 6:36 AM EDT [facility] LDL, Calculated 160(H) <100 mg/dL 6:36 AM EDT [facility] Comment: LDL Cholesterol Reference Range [...] 12 hours? Unknown 05/02/2024 6:36 AM EDT [facility] Blood Venous blood specimen / Unknown 05/01/2024 11:58 PM EDT 05/02/2024 12:08 AM EDT us Anne Marie PHILLIP LAB BLOOD ORDERABLES Final Result Performing Organization Address City/[facility]/ZIP Co de Phone Number [facility] [address] [place] [address] * Morphology (05/01/2024 11:58 PM EDT) RBC Morphology RBC Morphology Consistent with Indices and RDW LAB HEMATOLOGY METHOD 05/02/2024 2:05 AM EDT [facility] Platelet Estimate Platelet smear estimate consistent with automated count LAB HEMATOLOGY METHOD 05/02/2024 2:05 AM EDT [facility] Blood Venous blood specimen / Unknown Venipuncture / Unknown 05/01/2024 11:58 PM EDT 05/02/2024 12:05 AM EDT Marylu Carvajal APRN, JORGE LAB BLOOD ORDERABLES Final Result [facility] [address] [place] [address] * (ABNORMAL) Manual Differential (05/01/2024 11:58 PM EDT) Blasts % 0 % LAB HEMATOLOGY METHOD 05/02/2024 2:05 AM EDT [facility] Promyelocytes % 0 % LAB HEMATOLOGY METHOD 05/02/2024 2:05 AM EDT [facility] Myelocytes % 0 % LAB HEMATOLOGY METHOD 05/02/2024 2:05 AM EDT [facility] Metamyelocytes % 0 % LAB HEMATOLOGY METHOD 05/02/2024 2:05 AM EDT [facility] Neutrophils % 52 % LAB HEMATOLOGY METHOD 05/02/2024 2:05 AM EDT [facility] Lymphocytes % 33 % LAB HEMATOLOGY METHOD 05/02/2024 2:05 AM EDT [facility] Reactive Lymphocytes % 0 % LAB HEMATOLOGY METHOD 05/02/2024 2:05 AM EDT [facility] Monocytes % 7 % LAB HEMATOLOGY METHOD 05/02/2024 2:05 AM EDT [facility] Eosinophils % 4 % LAB HEMATOLOGY METHOD 05/02/2024 2:05 AM EDT [facility] Basophils % 4 % LAB HEMATOLOGY METHOD 05/02/2024 2:05 AM EDT [facility] Blasts Absolute 0.00 10*3/UL LAB HEMATOLOGY METHOD 05/02/2024 2:05 AM EDT [facility] Promyelocytes Absolute 0.00 10*3/uL LAB HEMATOLOGY METHOD 05/02/2024 2:05 AM EDT [facility] Myelocytes Absolute 0.00 10*3/uL LAB HEMATOLOGY METHOD 05/02/2024 2:05 AM EDT [facility] Metamyelocytes Absolute 0.00 10*3/uL LAB HEMATOLOGY METHOD 05/02/2024 2:05 AM EDT [facility] Neutrophils Absolute 6.81(H) 1.60 - 6.10 10*3/uL LAB HEMATOLOGY METHOD 05/02/2024 2:05 AM EDT [facility] Lymphocytes Absolute 4.32(H) 1.20 - 3.90 10*3/uL LAB HEMATOLOGY METHOD 05/02/2024 2:05 AM EDT [facility] Reactive Lymphocytes Absolute 0.00 10*3/uL LAB HEMATOLOGY METHOD 05/02/2024 2:05 AM EDT [facility] Monocytes Absolute 0.92(H) 0.30 - 0.90 10*3/uL LAB HEMATOLOGY METHOD 05/02/2024 2:05 AM EDT [facility] Eosinophils Absolute 0.52(H) 0.00 - 0.50 10*3/uL LAB HEMATOLOGY METHOD 05/02/2024 2:05 AM EDT [facility] Basophils Absolute 0.52(H) 0.00 - 0.10 10*3/uL LAB HEMATOLOGY METHOD 05/02/2024 2:05 AM EDT [facility] Blood Venous blood specimen / Unknown Venipuncture / Unknown 05/01/2024 11:58 PM EDT 05/02/2024 12:05 AM EDT Marylu Carvajal ACCOUNTS RECEIVABLE SPECIALIST, DNP LAB BLOOD ORDERABLES Final Result [facility] [address] [place] [address] * Gold Top (05/01/2024 11:58 PM EDT) Extra Hold for add-ons 05/02/2024 3:02 AM EDT [facility] Comment:Auto resulted. Blood Venous blood specimen / Unknown 05/01/2024 11:58 PM EDT 05/02/2024 12:08 AM EDT Edson Mcclure DO LAB BLOOD ORDERABLES Final R esult [facility] [address] [place] [address] * Lavender Top (05/01/2024 11:58 PM EDT) Extra Hold for add-ons 05/02/2024 3:02 AM EDT [facility] Comment:Auto resulted. Blood Venous blood specimen / Unknown 05/01/2024 11:58 PM EDT 05/02/2024 12:08 AM EDT Edson Mcclure DO LAB BLOOD ORDERABLES Final R esult [facility] [address] [place] [address] * Light Green Top (05/01/2024 11:58 PM EDT) Extra Hold for add-ons 05/02/2024 3:02 AM EDT [facility] Comment:Auto resulted. Blood Venous blood specimen / Unknown 05/01/2024 11:58 PM EDT 05/02/2024 12:08 AM EDT us Edson Mcclure DO LAB BLOOD ORDERABLES Final R esult [facility] [address] [place] [address] * (ABNORMAL) Troponin T, High Sensitivity, 0 Hour Plasma, Reflex to 2 Hour (05/01/2024 11:58 PM EDT) Troponin T, High Sensitivity, 0 Hour 34(H) <14 ng/L 05/02/2024 12:40 AM EDT [facility] Blood Venous blood specimen / Unknown Venipuncture / Unknown 05/01/2024 11:58 PM EDT 05/02/2024 12:05 AM EDT Marylu Carvajal APRN, DNP LAB BLOOD ORDERABLES Final Result Performing Organization Address [facility]/ZIP Co de Phone Number [facility] [address] [place] [address] * Anti Xa Level by Unfractionated Heparin - Baseline (05/01/2024 11:58 PM EDT) Anti Xa Level Unfractionated Heparin 0.68 <1.00 IU/mL LAB COAGULATION METHOD 05/02/2024 1:05 AM EDT [facility] Blood Venous blood specimen / Unknown Venipuncture / Unknown 05/01/2024 11:58 PM EDT 05/02/2024 12:05 AM EDT Narrative [facility] - 05/02/2024 1:05 AM EDT Therapeutic Range: UFH Full Dose and ACS/NM protocols*: 0.30 - 0.70 IU/mL UFH Low Dose protocol*: 0.25 - 0.50 IU/mL UFH prophylaxis: Not established Marylu Carvajal APRN, [facility] LAB BLOOD ORDERABLES Final Result Performing Organization Address City/[facility]/[place] [address] * N-Terminal Probnp, Plasma (05/01/2024 11:58 PM EDT) N-Terminal, PROBNP, Plasma 339 0 - 899 pg/mL 05/02/2024 12:40 AM EDT [facility] Blood Venous blood specimen / Unknown Venipuncture / Unknown 05/01/2024 11:58 PM EDT 05/02/2024 12:05 AM EDT Marylu Carvajal APRN, [facility] BLOOD ORDERABLES Final Result Performing Organization Address City/[facility]/ZIP Co de Phone Number [facility] [address] [place] [address] * (ABNORMAL) APTT (05/01/2024 11:58 PM EDT) Pathologist [facility] aPTT 79(H) 25 - 35 sec LAB COAGULATION METHOD 05/02/2024 1:05 AM EDT [facility] Blood Venous blood specimen / Unknown Venipuncture / Unknown 05/01/2024 11:58 PM EDT 05/02/2024 12:05 AM EDT Narrative [facility] - 05/02/2024 1:05 AM EDT [facility] Marylu Carvajal APRN, [facility] BLOOD ORDERABLES Final Result Performing Organization Address City/[facility]/[place] [address] * Type and Screen (05/01/2024 11:58 PM EDT) ABO/Rh B Positive 05/01/2024 11:02 PM EDT [facility]OD [facility] Antibody Screen Negative 05/01/2024 11:02 PM EDT [facility] Specimen Expiration 05/04/2024 23:59 05/01/2024 11:02 PM EDT BLOOD BANK Blood Venous blood specimen / Unknown Venipuncture / Unknown 05/01/2024 11:58 PM EDT 05/02/2024 12:09 AM EDT Marylu Carvajal APRN, DNP LAB BLOOD BANK TEST ORDERABLES Final Result BLOOD BANK [address] [place] [address] * Ionized calcium, serum (05/01/2024 11:58 PM EDT) Ionized Calcium, Serum 4.6 4.6 - 5.3 mg/dL LAB HEMATOLOGY METHOD 05/02/2024 1:03 AM EDT [facility] Blood Venous blood specimen / Unknown Venipuncture / Unknown 05/01/2024 11:58 PM EDT 05/02/2024 12:07 AM EDT Marylu Carvajal APRN, DNP LAB BLOOD ORDERABLES Final Result Performing Organization Address City/[facility]/[place] [address] * Phosphorus, Plasma (05/01/2024 11:58 PM EDT) Phosphorus, Plasma 3.6 2.5 - 4.5 mg/dL 05/02/2024 12:40 AM EDT [facility] Blood Venous blood specimen / Unknown Venipuncture / Unknown 05/01/2024 11:58 PM EDT 05/02/2024 12:05 AM EDT Marylu Carvajal APRN, DNP LAB BLOOD ORDERABLES Final Result [facility] [address] [place] [address] * Magnesium, Plasma (05/01/2024 11:58 PM EDT) Magnesium, Plasma 2.3 1.9 - 2.4 mg/dL 05/02/2024 12:40 AM EDT [facility] Blood Venous blood specimen / Unknown Venipuncture / Unknown 05/01/2024 11:58 PM EDT 05/02/2024 12:05 AM EDT Marylu Carvajal APRN, JOR[facility] LAB BLOOD ORDERABLES Final Result Performing Organization Address City/[facility]/ZIP Co de Phone Number [facility] [address] [place] [address] * Prothrombin Time/INR (05/01/2024 11:58 PM EDT) Prothrombin Time 13.4 12.0 - 14.3 sec LAB COAGULATION METHOD 05/02/2024 12:36 AM EDT [facility] INR 1.0 0.9 - 1.1 LAB COAGULATION METHOD 05/02/2024 12:36 AM EDT [facility] Blood Venous blood specimen / Unknown Venipuncture / Unknown 05/01/2024 11:58 PM EDT 05/02/2024 12:05 AM EDT Narrative [facility] - 05/02/2024 12:36 AM EDT OPTIMAL INR RANGES FOR PATIENT ON ORAL ANTICOAGULANT THERAPY Prevention of venous thromboembolism INR 2.0 to 3.0 In patients with heart disease: Atrial fibrillation INR 2.0 to 3.0 Valvular heart disease INR 2.0 to 3.0 Tissue heart valves INR 2.0 to 3.0 Mechanical prosthetic valves INR 2.5 to 3.5 Prevention of recurrent NM INR 2.5 to 3.5 Marylu Carvajal APRN, JORGE LAB BLOOD ORDERABLES Final Result Performing Organization Address City/[facility]/ZIP Co de Phone Number [facility] [address] [place] [address] * (ABNORMAL) Comprehensive metabolic panel (05/01/2024 11:58 PM EDT) Glucose, Plasma 97 74 - 99 mg/dL 05/02/2024 12:40 AM EDT [facility] BUN, Plasma 9 7 - 21 mg/dL 05/02/2024 12:40 AM EDT [facility] Creatinine, Plasma 0.85 0.60 - 1.10 mg/dL 05/02/2024 12:40 AM EDT [facility] BUN/Creatinine Ratio 11 05/02/2024 12:40 AM EDT [facility] Sodium, Plasma 137 136 - 145 mmol/L 05/02/2024 12:40 AM EDT [facility] Potassium, Plasma 3.6 3.6 - 4.9 mmol/L 05/02/2024 12:40 AM EDT [facility] Chloride, Plasma 104 97 - 107 mmol/L 05/02/2024 12:40 AM EDT [facility] CO2, Plasma 22 22 - 29 mmol/L 05/02/2024 12:40 AM EDT [facility] Anion Gap 11 6 - 16 mmol/L 05/02/2024 12:40 AM EDT [facility] Total Calcium, Plasma 8.5(L) 8.9 - 10.2 mg/dL 05/02/2024 12:40 AM EDT [facility] Total Protein 6.3 6.3 - 7.9 g/dL 05/02/2024 12:40 AM EDT [facility] Albumin, Plasma 3.8 3.5 - 5.2 g/dL 05/02/2024 12:40 AM EDT [facility] AST, Plasma 21 10 - 35 U/L 05/02/2024 12:40 AM EDT [facility] ALT, Plasma 17 10 - 35 U/L 05/02/2024 12:40 AM EDT [facility] Alkaline Phosphatase, Plasma 124(H) 35 - 104 U/L 05/02/2024 12:40 AM EDT [facility] Total Bilirubin, Plasma 0.4 0.2 - 1.1 mg/dL 05/02/2024 12:40 AM EDT [facility] eGFRcr 81.5 mL/min/1.7 3m*2 05/02/2024 12:40 AM EDT [facility] Comment:Reported eGFRcr in m L/min/1.73m2 is based the CKD-EPI 2020 equation that does not use a race coefficient. Blood Venous blood specimen / Unknown Venipuncture / Unknown 05/01/2024 11:58 PM EDT 05/02/2024 12:05 AM EDT Marylu Carvajal APRN, DNP LAB BLOOD ORDERABLES Final Result [facility] [address] [place] [address] * (ABNORMAL) CBC and Differential (05/01/2024 11:58 PM EDT) WBC Count 13.10(H) 3.70 - 10.30 10*3/uL LAB HEMATOLOGY METHOD 05/02/2024 2:05 AM EDT [facility] RBC Count 4.15 3.90 - 5.20 10*6/uL LAB HEMATOLOGY METHOD 05/02/2024 2:05 AM EDT [facility] HGB 12.8 11.2 - 15.7 g/dL LAB HEMATOLOGY METHOD 05/02/2024 2:05 AM EDT [facility] HCT 35.9 34.0 - 45.0 % LAB HEMATOLOGY METHOD 05/02/2024 2:05 AM EDT [facility] Platelet Count 374(H) 155 - 369 10*3/uL LAB HEMATOLOGY METHOD 05/02/2024 2:05 AM EDT [facility] MCV 87 79 - 98 fL LAB HEMATOLOGY METHOD 05/02/2024 2:05 AM EDT [facility] MCH 30.8 26.0 - 32.0 pg LAB HEMATOLOGY METHOD 05/02/2024 2:05 AM EDT [facility] MCHC 35.7(H) 30.7 - 35.5 g/dL LAB HEMATOLOGY METHOD 05/02/2024 2:05 AM EDT [facility] RDW 13.4 11.5 - 14.5 % LAB HEMATOLOGY METHOD 05/02/2024 2:05 AM EDT [facility] MPV 9.9 8.8 - 12.5 fL LAB HEMATOLOGY METHOD 05/02/2024 2:05 AM EDT [facility] nRBC 0.0 <=0.0 per 100 WBCs LAB HEMATOLOGY METHOD 05/02/2024 2:05 AM EDT [facility] Differential Type Manual LAB HEMATOLOGY METHOD 05/02/2024 2:05 AM EDT [facility] Blood Venous blood specimen / Unknown Venipuncture / Unknown 05/01/2024 11:58 PM EDT 05/02/2024 12:05 AM EDT [facility] 05/02/[facility]24 2:05 AM EDT Therapeutic [...] is no longer being reported. Marylu Carvajal APRN, DNP LAB BLOOD ORDERABLES Final Result [facility] [address] [place] [address] * (ABNORMAL) Platelet P2Y12 Receptor Blockade, Verify Now PRU (05/01/2024 11:58 PM EDT) P2Y12 PRU 56(L) 194 - 418 PRU 05/02/2024 12:24 AM EDT [facility] Blood Venous blood specimen / Unknown Venipuncture / Unknown 05/01/2024 11:58 PM EDT 05/02/2024 12:11 AM EDT Narrative [facility] - 05/02/2024 12:24 AM EDT [...] to the clinician. Testing performed in the [facility]. Marylu Carvajal APRN, DNP LAB BLOOD ORDERABLES Final Result Performing Organization Address [facility] Co de Phone Number [facility] [address] [place] [address] * Fibrinogen, Quantitative (Clottable) (05/01/2024 11:58 PM EDT) Fibrinogen, Quantitative (Clottable) 291 208 - 459 mg/dL LAB COAGULATION METHOD 05/02/2024 1:05 AM EDT [facility] Blood Venous blood specimen / Unknown Venipuncture / Unknown 05/01/2024 11:58 PM EDT 05/02/2024 12:05 AM EDT Marylu Carvajal APRN, DNP LAB BLOOD ORDERABLES Final Result Performing Organization Address [facility] de Phone Number [facility] [address] [place] [address] * ECG Adult (05/01/2024 11:25 PM EDT) EKG DIAGNOSIS CLASS Abnormal MUSE ECG Ventricular Rate 71 BPM MUSE ECG Atrial Rate 71 BPM MUSE ECG WI Interval 156 ms MUSE ECG QRSD Interval 70 ms MUSE ECG QT Interval 478 ms MUSE ECG QTC Interval 519 ms MUSE ECG P Procious 78 degrees MUSE ECG R Procious 45 degrees MUSE ECG T Wave Procious 43 degrees MUSE ECG Diagnosis Normal sinus rhythm MUSE ECG Diagnosis Nonspecific ST and T wave abnormality MUSE ECG Diagnosis Prolonged QT MUSE ECG Diagnosis Abnormal ECG MUSE ECG Diagnosis MUSE ECG Diagnosis Confirmed by Graham Singleton ([id number]) on 05/02/2024 5:27:14 AM MUSE ECG 05/01/2024 11:2 5 PM EDT 05/02/2024 5:27 AM EDT Marylu Carvajal APRN, JORGE ECG ORDERABLES Namrata l Result MUSE ECG * XR Chest 1 View [...] MD on 05/01/2024 11:31 PM Marylu Carvajal APRN, DNP IMG XR PROCEDURES Fi nal Result [...] EDT 1,000 mg 400 mL /hr New 05/26/2024 8:20 PM EDT 1,000 mg 400 mL/hr New 05/26/2024 10:51 AM EDT 1,000 mg 400 mL/hr acetaminophen (Ofirmev) injection 650 mg 650 mg, Intravenous, Once, 1 dose, On Tue05/17/24 at 1600, Routine New Bag 05/17/2024 5:13 PM EDT 650 mg acetaminophen (Ofirmev) injection 650 mg 650 mg, Intravenous, Once, 1 dose, On Tue05/18/24 at 1300, Routine New 05/18/2024 2:39 PM EDT 650 mg 260 mL/hr acetaminophen (Ofirmev) injection 650 mg 650 mg, Intravenous, Every 6 hours, 4 doses, First dose on Tue05/21/24 at 2245, Last dose on Tue05/22/24 at 1645, Routine New Bag 05/22/2024 4:11 PM EDT 650 mg New Bag 05/22/2024 11:20 AM EDT 650 mg New Bag 05/22/2024 5:03 AM EDT 650 mg acetaminophen [...] on Tue05/11/24 at 0400, Last dose on 05/12/24 at 2000, Routine, Recovery(Phase II-Outpatient)/On Unit(Inpatient) Given [...] Every 6 hours scheduled, First dose on Tue05/27/24 at 1230, Until Discontinued, Routine Given 06/14/2024 5:00 AM EDT 500 mg Given 06/13/2024 11:35 PM EDT 500 mg Given 06/13/2024 5:45 PM EDT 500 mg acetaminophen (Tylenol) tablet 500 mg 500 mg, Oral, Every 6 hours PRN, Starting on Emily 06/14/24 at 0830, Until Tue06/17/24 at 0656, [...] TPN 40 mL/hr, Continuous TPN, Starting on 05/29/24 at 2100, Until Emily 05/31/24 at 205, 960 mL, Administer over 24 Hours, Intravenous, Central, Routine New Bag 05/30/2024 9:24 PM EDT 4 0 mL/hr Rate/Dose Verify 05/30/2024 7:00 PM EDT 40 mL/h r Rate/Dose Verify 05/30/2024 6:00 PM EDT 40 mL/h r Adult 2-in-1 TPN 40 mL/hr, Continuous TPN, Starting on Emily 05/31/24 at 2100, Until 06/02/24 at 205, 960 mL, Administer over 24 Hours, Intravenous, Central, Routine New Bag 06/01/2024 10:42 PM EDT 40 mL/hr New Bag 05/31/2024 10:46 PM EDT 40 mL/hr Adult 2-in-1 TPN 65 mL/hr, Continuous TPN, Starting on 06/02/24 at 2100, Until Emily 06/07/24 at 205, 1,560 mL, Administer over 24 Hours, Intravenous, [...] PRN, Starting on Tue05/14/24 at 2012, Until Emily 06/21/24 at 1741, Routine, sore throat Given 05/17/2024 4:24 PM EDT 1 lozenge Given 05/17/2024 10:31 AM EDT 1 lozenge Given 05/16/2024 6:05 PM EDT 1 lozenge bisacodyl (Dulcolax) EC tablet 10 mg 10 mg, Oral, Daily PRN, Starting on Emily 06/14/24 at 0729, Until Emily 06/21/24 at 1741, Routine, constipation Given 06/14/2024 7:59 AM EDT 10 mg bisacodyl (Dulcolax) suppository 10 mg 10 mg, Rectal, Daily, First dose on 05/12/24 at 1630, Until Discontinued, Routine Given 05/13/2024 [...] 10 mg, Rectal, Daily, First dose on 05/19/24 at 1315, Until Discontinued, Routine Given 05/20/2024 [...] Nasogastric, 2 times daily, First dose on 05/12/24 at 2215, Until Discontinued, Routine Given 05/17/2024 9:18 PM EDT 150 mg Given 05/17/2024 10:31 AM EDT 150 mg Given 05/16/2024 10:07 PM EDT 150 mg buPROPion (Wellbutrin) tablet 150 mg 150 mg, Oral, 2 times daily, First dose on Sun /13/25 at 1245, Until Discontinued, Routine Given 05/30/2024 [...] infusion 100 mL/hr, Intravenous, Continuous, Starting on Emily 05/17/24 at 1900, Until Tue05/17/24 at 2048, Routine Rate/Dose Change 05/17/2024 6:30 PM EDT 100 mL/hr 100 mL/hr dextrose 5 % and sodium chloride 0.45 % with KCl 20 mEq/L infusion 100 mL/hr, Intravenous, Continuous, Starting on Emily 05/17/24 at 0930, Until 05/19/24 at 2310, Routine Rate/Dose Verify 05/19/2024 10:00 PM EDT 100 mL/hr 100 mL/hr Rate/Dose Verify 05/19/2024 9:00 PM EDT 100 mL/hr 100 mL/ hr Rate/Dose Verify 05/19/2024 8:00 PM EDT 100 mL/hr 100 mL/ hr dextrose 5 % infusion 60 mL/hr, Intravenous, Continuous, Starting on Emily 05/17/24 at 0100, Until Emily 05/17/24 at 0620, Routine New Bag 05/17/2024 12:23 [...] 250 mL, Intravenous, Once, 1 dose, On Tue05/17/24 at 1645, Routine Given 05/17/2024 5:14 PM EDT 250 mL electrolyte (Isolyte-S or Plasmalyte-A) IV solution 250 mL 250 mL, Intravenous, Once, 1 dose, On Tue05/23/24 at 2215, Routine Given 05/23/2024 9:39 PM EDT 250 mL electrolyte (Isolyte-S or Plasmalyte-A) IV solution 250 mL 250 mL, Intravenous, Once, 1 dose, On Tue05/24/24 at 0130, Routine Given 05/24/2024 12:54 AM EDT 250 mL enoxaparin (Lovenox) syringe 40 mg 40 mg, Subcutaneous, Daily, First dose on Tue06/10/24 at 2100, Until Discontinued, Routine Given 06/21/2024 [...] mL/hr), 0.032 mg/mL, Intravenous, Titrated, Starting on Tue05/06/24 at 2230, Until Tue05/07/24 at 1246, STAT [...] PRN, Starting on Tue05/11/24 at 1648, Until Tue05/17/24 at 1852, Routine, Recovery(Phase II-Outpatient)/On Unit(Inpatient), heartburn, [...] Intravenous, Once, 1 dose, On 05/19/24 at 1300, Routine Given 05/19/2024 1:26 PM EDT 20 mg furosemide (Lasix) injection 20 mg 20 mg, Intravenous, Once, 1 dose, On Tue05/20/24 at 1230, Routine Given 05/20/2024 12:27 PM EDT 20 mg furosemide (Lasix) injection 20 mg 20 mg, Intravenous, Once, 1 dose, On Tu05/22/24 at 0030, Routine Given 05/21/2024 11:52 PM [...] 2.5 mg heparin (porcine) - COM Adult ACS/NM Protocol - MAR Re-bolus Calculator injection 0-3,700 [...] units/250 mL (100 unit/mL) infusion - Adult ACS/NM Protocol 0-35 Units/kg/hr 61.1 kg (0-21.385 mL/hr, [...] Oral, Every 6 hours PRN, Starting on Emily 05/17/24 at 1100, Until Tue05/18/24 at 0504, Routine, [...] PRN, Starting on Tue05/15/24 at 0900, Until Emily 06/21/24 at 1741, Routine, wheezing, shortness of breath [...] 400 mg, Oral, Once, 1 dose, On 06/17/24 at 0800, Routine Given 06/17/2024 9:28 AM [...] 2 g, Intravenous, Once, 1 dose, On 05/19/24 at 1600, at 25 mL/hr, Administer over [...] 25 mL/hr, Administer over 2 Hours, Routine Bag 06/10/2024 6:37 AM EDT 2 g [...] Oral, 4 times daily, First dose on Tu05/08/24 at 1400, Until Discontinued, Routine, Recovery(Phase II-Outpatient)/On [...] Intravenous, Every 6 hours, First dose on Emily 05/10/24 at 1300, Until Discontinued, Routine Given 05/11/2024 [...] Swish & Spit, As needed, Starting on Emily 06/07/24 at 1645, Until Emily 06/21/24 at 1741, Routine, dry mouth Given 06/07/2024 5:59 PM EDT 15 mL morphine PF 4 mg 4 mg, Intravenous, Every 30 min PRN, Starting on 05/06/24 at 2040, Until 05/06/24 at 2145, Routine, Recovery(Phase II-Outpatient)/On Unit(Inpatient), pain [...] EDT 0.6 mcg/kg/min 11 mL/hr nystatin (Mycostatin) 084954 UNIT/ML suspension 400,000 Units 400,000 Units (4 mL), Swish & Swallow, 4 times daily, 23 doses, First dose (after last modification) on Tue05/14/24 at 1400, Last dose on Tue05/19/24 at 2200, Routine Given 05/18/2024 1:00 PM EDT 400,000 Units Given 05/18/2024 8:43 AM EDT 400,000 Units Given 05/17/2024 9:00 PM EDT 400,000 Units nystatin (Mycostatin) [id number] UNIT/ML suspension 500,000 Units 500,000 Units (5 [...] daily, First dose (after last modification) on Tue05/20/24 at 0900, Until Discontinued, Routine Given 05/27/2024 10:00 AM EDT 40 mg Given 05/26/2024 8:20 PM EDT 40 mg Given 05/26/2024 8:54 AM EDT 40 mg phenol (Chloraseptic) 1.4 % mouth/throat spray 1 spray 1 spray, Mouth/Throat, Every 2 hour PRN, sore throat, Instruct patient to spit out after 15 seconds., Starting on Tue05/17/24 at 1628 Given 05/18/2024 12:48 PM EDT 1 spray piperacillin-tazobactam (Zosyn) 4.5 g in sodium chloride 0.9% 100 mL IVPB (vial adapter required) 4.5 g, Intravenous, Every 6 hours, 42 doses, First dose on Tue05/17/24 at 1530, Last dose on Tue05/27/24 at 2130, Routine New Bag 05/27/2024 8:30 PM EDT 4.5 g 36 .7 mL/hr New Bag 05/27/2024 3:43 PM EDT 4.5 g 36.7 mL/hr New Bag 05/27/2024 10:08 AM EDT 4.5 g 36.7 [...] 40 mEq, Oral, Once, 1 dose, On Tu06/12/24 at 0800, Routine Given 06/12/2024 8:19 AM EDT 40 mEq potassium chloride CR (Klor-Con) ER tablet 40 mEq 40 mEq, Oral, Once, 1 dose, On Emily 06/14/24 at 0800, Routine Given 06/14/2024 8:32 AM EDT 40 mEq potassium chloride CR (Klor-Con) ER tablet 40 mEq 40 mEq, Oral, Once, 1 dose, On Tue06/16/24 at 0800, Routine Given 06/16/2024 10:21 AM EDT 40 mEq potassium chloride IVPB 10 mEq 10 mEq, Intravenous, Every 1 hour, 4 doses, First dose on Tue05/12/24 at 0200, Last dose on Tue05/12/24 at [...] 1 hour, 4 doses, First dose on 05/13/24 at 0815, Last dose on 05/13/24 at 1115, RoutineIndications:Hypokalemia Rate/Dose Verify 05/13/2024 1:00 PM EDT 100 mL/hr New Bag 05/13/2024 12:19 PM EDT 10 mEq 100 mL/hr Rate/Dose Verify 05/13/2024 12:00 PM EDT 100 mL /hr potassium chloride IVPB 10 mEq 10 mEq, Intravenous, Every 1 hour, 2 doses, First dose on 05/20/24 at 2045, Last dose on 05/20/24 at 2145, RoutineIndications:Hypokalemia Rate/Dose Verify 05/20/2024 10:00 [...] 20 mEq, Intravenous, Once, 1 dose, On Tue05/19/24 at 0600, RoutineIndications:Hypokale himanshu New Bag 05/19/2024 [...] Intravenous, Once, 1 dose, On Tue05/21/24 at 1530, Administer over 1.5 Hours, Routine [...] Until Tue06/21/24 at 1741, Routine, nausea, vomiting promethazine (Phenergan) suppository 25 mg 25 mg, Rectal, Every 4 hours PRN, Starting on Tue06/18/24 at 1821, Until Tue06/21/24 at 1741, Routine, nausea, vomiting promethazine (Phenergan) [...] on Tue05/28/24 at 2100, Until Discontinued, Routine Given 06/20/2024 [...] 8:36 PM EDT 80 mg sodium chloride ([place]) 0.65 % nasal spray 1 spray 1 [...] 50 mg, Oral, Once, 1 dose, On 06/20/24 at 0515, Routine Given 06/20/2024 4:29 AM EDT 50 mg traZODone (Desyrel) tablet 50 mg 50 mg, Oral, Once, 1 dose, On 06/16/24 at 0000, Routine Given 06/15/2024 11:24 PM [...] Reason: Patient/family refused)1758 (Given - Provider: Aleshia Curiel, KRISTINA) 0102 (Given - Provider: Corinne Fuentes RN - Comment: per pt request)0555 (Not Given - Provider: Corinne Fuentes, KRISTINA - Reason: Patient/family refused)1302 (Given - Provider: Zander Villeda RN) aspirin chewable tablet 81 mg 81 mg, Oral, Daily, First dose on 05/26/24 at 1630, Until Discontinued, Routine 0906 (Given - Provider: Ashwin Odmo RN) 0820 (Given - Provider: Aleshia Curiel RN) 1022 (Given - Provider: Amy Sultana RN - Comment: pt sleeping, wanted to wait) buPROPion XL (Wellbutrin XL) 24 hr tablet 300 mg(Linked Group 1) 300 mg, Oral, Daily, First dose on Emily 05/31/24 at 0900, Until Discontinued, Routine 0906 (Given - Provider: Ashwin Odom RN) 0820 (Given - Provider: Aleshia Curiel RN) 1022 (Given - Provider: Amy Sultana RN - Comment: pt sleeping, wanted to wait) citalopram (CeleXA) tablet 40 mg 40 mg, Oral, Daily, First dose on 05/27/24 at 1245, Until Discontinued, Routine 0906 (Given - Provider: [...] Curiel RN) 1023 (Given - Provider: Amy M Doctor, RN - Comment: pt sleeping, wanted to wait) lactulose (Chronulac) 10 GM/15ML solution 20 g 20 g, Oral, 2 times daily, First dose on Tue06/14/24 at 0900, Until Discontinued, Routine 09 (Given - Provider: Ashwin Odom RN)2000 (Given - Provider: Brunilda Dawson, KRISTINA) 0820 (Given - Provider: Aleshia Curiel, KRISTINA)2040 (Given - Provider: Corinne Fuentes, KRISTINA) 1024 (Given - Provider: Amy Sultana, RN) lidocaine (Lidoderm) 5 % patch 2 patch 2 patch, Apply externally, Every 24 hours, First dose on Tue05/26/24 at 1515, Until Discontinued, Administer over 12 Hours, Routine 0122 (Medication Removed - Provider: Julian Jimenez)1434 (Medication Applied - Provider: Ashwin Odom RN) 0216 (Medication Removed - Provider: Brunilda Dawson RN)1759 (Medication Applied - Provider: Aleshia Curiel RN) 0547 (Medication Removed - Provider: Corinne Fuentes, KRISTINA)1515 (Canceled Entry - Provider: Automatic Discharge Provider [...] Routine 0552 (New Bag - Provider: Corinne Fuentes, KRISTINA) melatonin tablet 6 mg 6 mg, Oral, Nightly, First dose on Tue05/29/24 at 2100, Until Discontinued, Routine 2001 (Given - Provider: Brunilda Dawson RN) 2041 (Given - Provider: Corinne Fuentes, KRISTINA) methocarbamol (Robaxin) tablet 1,000 mg 1,000 mg, Oral, 4 times daily, First dose (after last modification) on Tue06/16/24 at 2200, Until Discontinued, Routine 0906 (Given - Provider: Ashwin Odom, KRISTINA)1434 (Given - Provider: Ashwin Odom, RN)1701 (Given - Provider: Ashwin Odom RN)2114 (Given - Provider: Brunilda Dawson RN) 0819 (Given - Provider: Aleshia Curiel, KRISTINA)1306 (Not Given - Provider: Aleshia Curiel RN - Reason: Patient/family refused)1759 (Given - Provider: Aleshia Curiel RN)215 (Given - Provider: Corinne Fuentes, KRISTINA) 1022 (Given - Provider: Amy Sultana RN - Comment: pt sleeping, wanted to wait)1302 (Given - Provider: Zander Vilelda RN) metoprolol tartrate (Lopressor) tablet 25 mg 25 mg, Oral, 2 times daily, First dose on Tue05/27/24 at 2100, Until Discontinued, Routine 0906 (Given - Provider: Ashwin Odom RN)2000 (Given - Provider: Brunilda Dawson RN) 08 (Given - Provider: Aleshia Curiel RN)2041 (Given - Provider: Corinne Fuentes, KRISTINA) 1022 [...] 0905 (Given - Provider: Ashwin Odom RN) 08 (Not Given - Provider: Aleshia Curiel RN - Reason: Patient/family refused) 1023 (Given - Provider: Amy Sultana, RN - [...] Routine 1820 (Given - Provider: Ashwin Odom, RN) primidone (Mysoline) tablet 50 mg 50 mg, Oral, 2 times daily, First dose on Tue05/27/24 at 1245, Until Discontinued, Routine 09 (Given - Provider: Ashwin Odom, RKISTINA)2000 (Given - Provider: Brunilda Dawson, KRISTINA) 08 (Given - Provider: Aleshia Curiel RN)2044 (Given - Provider: Corinne Fuentes, KRISTINA) 102 (Given - Provider: Amy Sultana RN - Comment: pt sleeping, wanted to wait) rosuvastatin (Crestor) tablet 40 mg 40 mg, Oral, Nightly, First dose on Tue05/28/24 at 2100, Until Discontinued, Routine 2001 (Given - Provider: Brunilda Dawson, KRISTINA) 2041 (Given - Provider: Corinne Fuentes, KRISTINA) simethicone (Mylicon) chewable tablet 120 mg 120 mg, Oral, 4 times daily, First dose (after last modification) on Tue06/20/24 at 1800, Until Discontinued, Routine 175 (Given - Provider: Aleshia Curiel, KRISTINA)215 (Given - Provider: Corinne Fuentes, KRISTINA) 1022 (Given - Provider: Amy Sultana RN - Comment: pt sleeping, wanted to wait)1302 (Given - Provider: Zander Villeda, KRISTINA) sodium chloride 0.9 % flush 10 mL 10 mL, Intravenous, Every 12 hours, First dose on Tue05/19/24 at 0215, Until Discontinued, Routine 012 (Canceled Entry - Provider: Julian Jimenez)1438 (Given - Provider: Ashwin Odom, RN) 0216 (Given - Provider: Brunilda Dawson, RN)1400 (Given - Provider: Aleshia Curiel RN) 0252 (Given - Provider: Corinne Fuentes, RN)1333 (Given - Provider: Amy Sultana, RN) traMADol (Ultram) tablet 50 mg (COMPLETED) [...] PRN, Starting on Tue06/03/24 at 1021, Until Tue06/21/24 at 1741, Routine, anxiety 1137 (Given - Provider: Ashwin Odom, KRISTINA)1958 (Given - Provider: Brunilda Dawson, KRISTINA) 2033 (Not Given - Provider: Corinne Fuentes, KRISTINA - Reason: Patient/family refused) 1333 (Given - Provider: Amy Sultana, RN) ipratropium-albuterol (Duo-Neb) 0.5-2.5 mg/3 mL nebulizer solution 3 mL 3 mL, Nebulization, Every 6 hours PRN, Starting on Tue05/15/24 at 0900, Until Emily 06/21/24 at 1741, Routine, wheezing, shortness of breath moisturizing mouth (Biotene Dry Mouth) solution 15 mL 15 mL, Swish & Spit, As needed, Starting on Emily 06/07/24 at 1645, Until Emily 06/21/24 at 1741, Routine, dry mouth ondansetron (Zofran) injection 4 mg(Linked Group 3) 4 mg, Intravenous, Every 6 hours PRN, Starting on 05/19/24 at 1257, Until Emily 06/21/24 at 1741, Routine, vomiting, nausea 1955 [...] Provider: Corinne Fuentes, KRISTINA)1051 (Given - Provider: Aym Sultana RN) promethazine (Phenergan) 6.25 MG/5ML solution [...] Until Tue06/21/24 at 1741, Routine, nausea, vomiting 0110 (Given - Provider: Brunilda Dawson, KRISTINA) simethicone (Mylicon) chewable tablet 120 mg (CANCELED) 120 mg, Oral, Every 6 hours PRN, Starting on Tue05/29/24 at 1608, Until Tue06/20/24 at 1515, Routine, flatulence 1216 (Given - Provider: Ashwin Odom, KRISTINA)2243 (Given - Provider: Brunilda Dawson, KRISTINA) sodium chloride ([place]) 0.65 % nasal spray 1 spray 1 spray, Each Nostril, As needed, Starting on Tue06/01/24 at 2206, Until Tue06/21/24 at 1741, Routine, congestion traZODone (Desyrel) tablet 50 mg 50 mg, Oral, Nightly PRN, Starting on Tue06/17/24 at 2016, Until Tue06/21/24 at 1741, Routine, sleep 1958 (Given - Provider: Brunilda Dawson RN) 2034 (Not Given - Provider: Corinne Fuentes, KRISTINA - Reason: Patient/family refused)215 (Given - Provider: Corinne Fuentes, KRISTINA) Linked Groups Order Group 1: buPROPion (Wellbutrin) [...] documented as of this encounter Care Teams Insole Channeler Relationship Specialty Start Date End Date Pcp, [place] [address] PCP - General Family Medicine 04/04/24 06/28/24 documented as of this encounter
--- OUTSIDE RECORDS SUMMARY | 2024-06-29 14:30 | XMS_ITS | Encounter Summary ---
Author Organization Healthcare Address [address] [place] [address] Care Team Providers Care Dyehouse Worker Name Role Phone Champ Quiroz MD Primary Care Provider + [phone] Reason for Visit * Reason Comments Follow-up Staple removal Encounter Details Date Type Department Care Team (Late st Contact Info) Description 06/29/2024 2:30 PM EDT Office Visit [place] [facility] [address], [address] [place] [address] Lidia Troncoso MD [address] [place] [address] Social History Tobacco Use Types [...] any time in the past 12 m [facility], were you homeless or living in a residential (including now)? No 05/02/2024 Utilities Answer Date [...] Description 08/14/2024 8:20 AM EDT Office Visit [facility] General Surgery [address], [address] [place] [address] 10/30/2024 10:45 AM EDT Office Visit [facility] General [facility] [address], [address] [place] [address] Lidia Troncoso MD [address] [place] [address] documented as of this encounter Goals Goal Patient Goal Type Associated Problems Recent Progress Patient-Stated? Author Patient will verbalize understanding of orthotic wear , care and precautions to protect surgical repair for additional 4 weeks. Occupational Therapy No Jd Sabillon Patient will demonstrate correct performance of HEP to increase IP motion within 1 therapy visit. Occupational Therapy No dJ Sabillon documented as of this encounter Visit [...] documented as of this encounter Care Teams Dyehouse Worker Relationship Specialty Start Date End Date Champ Quiroz MD [address] [place] [address] PCP - General Internal Medicine 06/29/24 documented as of this encounter
--- OUTSIDE RECORDS SUMMARY | 2024-07-18 09:52 | XMS_ITS | Encounter Summary ---
Author Organization Healthcare Address [address] [place] [address] Care Team Providers Care Receiving Manager Name Role Phone Champ Quiroz MD Primary Care Provider [phone] Encounter Details Date Type Department Care Team (Latest Contact Info) Description 07/18/2024 9:52 AM EDT - 07/18/2024 11:59 PM EDT Hospital Encounter [facility] [address] [place] [address] CAD, multiple vessel Discharge Disposition: Home or [...] any time in the past 12 m [facility], were you homeless or living in a [facility] (including now)? No 05/02/2024 AUDIT-C Answer Date [...] Description 08/14/2024 8:20 AM EDT Office Visit [facility] General Surgery [address], [address] [place] [address] 10/30/2024 10:45 AM EDT Office Visit [facility] General Surgery [address], [address] [place] [address] Lidia Troncoso MD [address] [place] [address] documented as of this encounter [...] Champ Oden MD on 07/18/2024 10:01 AM Maite Austin MD IMG XR PROCEDURES [...] documented as of this encounter Care Teams Receiving Manager Relationship Specialty Start Date End Date Champ Quiroz MD [address] [place] [address] PCP - General Internal Medicine 06/29/24 documented as of this encounter
--- OUTSIDE RECORDS SUMMARY | 2024-07-18 11:00 | XMS_ITS | Encounter Summary ---
Author Organization Healthcare Address [address] [place] [address] Care Team Providers Care Monotype Keyboard Operator Name Role Phone Champ Quiroz MD Primary Care Provider [phone] Reason for Referral * Consultation (Routine) - Authorized Specialty Diagnoses / Procedures Referred By Contac t Referred To Contact Gynecology Diagnoses CAD, multiple vessel Tobacco use Anxiety and depression Chronic obstructive pulmonary disease, unspecified COPD type ([facility]) NSTEMI (non-ST elevated myocardial infarction) ([facility]) THOM (obstructive sleep apnea) S/P CABG x 4 Post-op pain Maite Austin MD [address] [address] Phone: tel: fax: Referral ID Status Reason Start Date Expiration Date Visits Requested Visits Authorized [id number] Authorized Specialty Services Required 07/18/2024 01/17/2026 1 1 Encounter Details Date Type Department Care Team (Late st Contact Info) Description 07/18/2024 11:00 AM EDT Office Visit [facility] [address], [address] [address] Maite Austin MD [address] [address] CAD, multiple vessel (Primary Dx); Tobacco use; Anxiety and depression; Chronic obstructive pulmonary disease, unspecified COPD type ([facility]); NSTEMI (non-ST elevated myocardial infarction) ([facility]); THOM (obstructive sleep apnea); S/P CABG x [...] any time in the past 12 m [facility], were you homeless or living in a alf (including now)? No 05/02/2024 AUDIT-C Answer Date [...] Recorded In the past 12 months has [employer], gas, oil, or water [employer] threatened to shut off services in your [...] mouth every 8 hours as needed. Yes Jadne Correa MD loratadine (Claritin) 10 MG tablet [...] rate daily at home Follow up with production metal sprayer (Dr. Bentley) and PCP Follow up with general surgery Recommend cardiac rehab Referral to gynecology for vaginal soreness Continue sternal precautions until 3 months from surgery Follow up as needed with CT surgery [1] Patient Active Problem List Diagnosis Anxiety and depression COPD (chronic obstructive pulmonary disease) ([facility]) Tobacco use CAD, multiple vessel NSTEMI (non-ST elevated myocardial infarction) ([facility]) GERD (gastroesophageal reflux disease) Leukocytosis Essential tremor Thrombocytosis Hypocalcemia Hyperlipidemia THOM (obstructive sleep apnea) S/P CABG x 4 Hypertension Post-op pain Hyponatremia Hypomagnesemia Transaminitis Sinus tachycardia Incomplete RBBB Tremor Hypertriglyceridemia Hypoalphalipoproteinemia S/P colostomy ([facility]) S/P colon resection BMI 22.0-22.9, adult [2] Past Medical History: Diagnosis Date Anxiety COPD (chronic obstructive pulmonary disease) ([facility]) 05/01/2024 Continue Duo nebs q6 SPO2 goal >88% Depression GERD (gastroesophageal reflux disease) 05/01/2024 Continue Protonix 40 mg daily Hyperkalemia 05/06/2024 Now resolved, pt with hypokalemia requiring replacement On mechanically assisted ventilation ([facility]) 05/06/2024 Arrived to ICU intubated 05[facility] 05/08 resolved Tobacco use 05/01/2024 Administrative 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 smoking 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 Complicates [...] [facility] General Surgery [address], [address] [place] [address] 10/30/2024 10:45 AM EDT Office Visit [facility] General Surgery [address], [address] [place] [address] Lidia Troncoso MD [address] [place] [id number] Scheduled Referrals Name Type Priority Associated Diagnoses Orde r Schedule Ambulatory referral to Gynecology Outpatient Referral Routine CAD, multiple vessel Tobacco use Anxiety and depression Chronic obstructive pulmonary disease, unspecified COPD type (CMS/HCC) NSTEMI (non-ST elevated myocardial infarction) (CMS/HCC) THOM (obstructive sleep apnea) S/P CABG x [...] ECG Atrial Rate 109 BPM MUSE ECG MS Interval 120 ms MUSE ECG QRSD Interval 70 ms MUSE ECG QT Interval 394 ms MUSE ECG QTC Interval 530 ms MUSE ECG P Orford 77 degrees MUSE ECG R Orford 79 degrees MUSE ECG T Wave Orford 100 degrees MUSE ECG Diagnosis Sinus tachycardia MUSE ECG Diagnosis Nonspecific ST and T wave abnormality MUSE ECG Diagnosis MUSE ECG Diagnosis MUSE ECG Diagnosis MUSE ECG Diagnosis Confirmed by Yahaira Gomez ([id number]) on 07/18/2024 9:29:04 PM MUSE ECG 07/18/2024 11:2 2 AM EDT 07/18/2024 9:29 PM EDT us Maite Austin MD ECG ORDERABLES Final Result MUSE ECG * (ABNORMAL) Basic Metabolic Panel, Plasma (07/18/2024 10:14 AM EDT) Glucose, Plasma 126(H) 74 - 99 mg/dL 07/18/2024 12:13 PM EDT [facility] BUN, Plasma 5(L) 7 - 21 mg/dL 07/18/2024 12:13 PM EDT [facility] Creatinine, Plasma 0.54(L) 0.60 - 1.10 mg/dL 07/18/2024 12:13 PM EDT [facility] BUN/Creatinine Ratio 9 07/18/2024 12:13 PM EDT [facility] Sodium, Plasma 137 136 - 145 mmol/L 07/18/2024 12:13 PM EDT [facility] Potassium, Plasma 2.5(LL) 3.6 - 4.9 mmol/L 07/18/2024 12:13 PM EDT [facility] Chloride, Plasma 95(L) 97 - 107 mmol/L 07/18/2024 12:13 PM EDT [facility] CO2, Plasma 29 22 - 29 mmol/L 07/18/2024 12:13 PM EDT [facility] Anion Gap 13 6 - 16 mmol/L 07/18/2024 12:13 PM EDT [facility] Total Calcium, Plasma 8.2(L) 8.9 - 10.2 mg/dL 07/18/2024 12:13 PM EDT [facility] eGFRcr 109.6 mL/min/1.7 3m*2 07/18/2024 12:13 PM EDT [facility] Comment:Reported eGFRcr in m L/min/1.73m2 is based the CKD-EPI 2020 equation that does not use a race coefficient. Blood Venous blood specimen / Unknown Venipuncture / Unknown 07/18/2024 10:14 AM EDT 07/18/2024 10:14 AM EDT us Maite Austin MD LAB BLOOD ORDERABLES Final Resu lt [facility] [address] [place] [address] * (ABNORMAL) CBC W/O Differential (07/18/2024 10:14 AM EDT) WBC Count 13.01(H) 3.70 - 10.30 10*3/uL LAB HEMATOLOGY METHOD 07/18/2024 11:08 AM EDT [facility] RBC Count 3.97 3.90 - 5.20 10*6/uL LAB HEMATOLOGY METHOD 07/18/2024 11:08 AM EDT [facility] HGB 11.5 11.2 - 15.7 g/dL LAB HEMATOLOGY METHOD 07/18/2024 11:08 AM EDT [facility] HCT 35.5 34.0 - 45.0 % LAB HEMATOLOGY METHOD 07/18/2024 11:08 AM EDT [facility] Platelet Count 582(H) 155 - 369 10*3/uL LAB HEMATOLOGY METHOD 07/18/2024 11:08 AM EDT [facility] MCV 89 79 - 98 fL LAB HEMATOLOGY METHOD 07/18/2024 11:08 AM EDT [facility] MCH 29.0 26.0 - 32.0 pg LAB HEMATOLOGY METHOD 07/18/2024 11:08 AM EDT [facility] MCHC 32.4 30.7 - 35.5 g/dL LAB HEMATOLOGY METHOD 07/18/2024 11:08 AM EDT [facility] RDW 14.9(H) 11.5 - 14.5 % LAB HEMATOLOGY METHOD 07/18/2024 11:08 AM EDT [facility] MPV 9.1 8.8 - 12.5 fL LAB HEMATOLOGY METHOD 07/18/2024 11:08 AM EDT [facility] nRBC 0.0 <=0.0 per 100 WBCs LAB HEMATOLOGY METHOD 07/18/2024 11:08 AM EDT [facility] Blood Venous blood specimen / Unknown Venipuncture / Unknown 07/18/2024 10:14 AM EDT 07/18/2024 10:14 AM EDT Maite Austin MD LAB BLOOD ORDERABLES Final Resu lt [facility] [address] [place] [address] * XR Chest 2 Views (07/18/2024 9:58 [...] documented as of this encounter Care Teams Monotype Keyboard Operator Relationship Specialty Start Date End Date Champ Quiroz MD [address] [place] [address] PCP - General Internal Medicine 06/29/24 documented as of this encounter
--- OUTSIDE RECORDS SUMMARY | 2024-07-20 09:59 | XMS_ITS ---
Author Organization [facility] Address [address] [place] [address] Care Team Providers Care Repairer Controller Tester Name Role Phone Dianeangelique Michaelle Primary Care Provider Champ Quiroz [phone] Encounters Encounter Location Date Provider Diagnosis [facility] [address] [place] [address] 07/20/2024 Michaelle Rivas Hypokalemia E87.6 Assessments Encounter Date Diagnosis (ICD Code) Assessment Notes Treatment Notes Treatment Clinical Notes Section Notes 07/20/2024 Hypokalemia (ICD-10 - E87.6) Plan Of Treatment Future Test Test Name Order Date BASIC METABOLIC PANEL ([id number]) 07/23/2024 MAGNESIUM (622) 07/23/2024 Next Appt Details Provider Name:Champ Quiroz, 08/20/2024 03:15:00 PM, [address], [address], [place], [address], Progress Notes * Rere REESE ADOB: [birth year] (53 yo F)Acc No.[id number]:07/20/2024 Patient: Rere DICKSON :1970 A ge:53 Y S ex:Female Address:[address] [place] [address] [place] [address] Subjective: * Chief Complaints: * * Medical History: * Surgical History: * Hospitalization/Major Diagno stic Procedure: * Medications: Objective: * Vitals: * Physical Examination: Assessment: * Assessment: 1. H ypokalemia - E87.6 (Primary) Plan: * Treatment: * Procedure Codes: * true * Date: Generated for Little catalan/Fior/Jericho on: 0 08/09/2024 06:14 PM EDT
--- OUTSIDE RECORDS SUMMARY | 2024-07-30 07:00 | XMS_ITS ---
Author Organization [facility] Address [address] [facility] [address] [facility] [address] [place] [address] Care Team Providers Care Computer Operations Supervisor Name Role Phone Michaelle Rivas Primary Care Provider Champ Quiroz [phone] REASON FOR VISIT [facility] D/C 07/24/2024 Encounters Encounter Location Date Provider Diagnosis [place] [facility] [address] [place] [address] [facility] [address] [place] [address] 07/30/2024 Champ Quiroz Plan Of Treatment Next Appt Details Provider Name:Champ Quiroz, 08/20/2024 03:15:00 PM, [address] [facility] [address] [facility], [address], [place], [address], Progress Notes * Rere REESE ADOB: [birth year] (53 yo F)Acc No.[id number]:07/30/2024 HOSP F/U Patient: Dayana Rere CASIANO Provider: Dayana Quiroz MD :1970 A ge:53 Y S ex:Female Date:07/30/2024 Address:[address] [place] [address] [id number] Pcp:Michaelle Rivas Subjective: * Chief Complaints: * 1 . [facility] D/C 07/24/2024. * Medical History: Objective: * Vitals: Assessment: Plan: * Treatment: * * Electronic signature of Step jenniffer Quiroz MD FAAP on 08/09/2024 at 06:17 PM EDT Sign off status: Pending * Provider: Dayana Quiroz MD Date: 0 07/30/2024 Generated for Little catalan/Fior/Jericho on: 0 08/09/2024 06:17 PM EDT
--- OUTSIDE RECORDS SUMMARY | 2024-07-30 12:15 | XMS_ITS ---
Author Organization [facility] Address [address] [place] [address] Care Team Providers Care Clam Picker Name Role Phone Michaelle Rivas Primary Care Provider [phone] Champ Quiroz Unavailable [phone] Allergies Allergen (clinical drug ingredient) Drug/Non Drug Allergy documented on EMR Reaction Allergy Type Onset Date Status Information temporarily unavailable LATEX GLOVES (uncoded) Unknown Allergy Active Information temporarily unavailable Percocet stomach upset, sweating Drug Allergy Active REASON FOR VISIT [facility] D/C 07/24/2024 Medications Medication SIG (Take, [...] W/U Status Risk Notes Problem Primary insomnia (9560428) Primary insomnia (F51.01) Active confirmed Problem Colostomy status (Z93.3) Active confirmed Vital Signs Temperature 97.5 degrees Fahrenheit 07/31/19 25 Blood pressure systolic 150 mm Hg 07/31/19 25 Blood pressure diastolic 90 mm Hg 025 Heart Rate 100 /min 07/30/2024 Height 5 ft 1 in in 07/30/2024 Weight 116.4 lbs 07/30/2024 BMI 21.99 kg/m2 07/30/2024 Encounters Encounter Location Date Provider Diagnosis [facility] [place] [address] [facility] [address] [place] [address] 07/30/2024 Champ Quiroz C. difficile colitis A04.72 [...] Name:Champ Quiroz, 08/20/2024 03:15:00 PM, [address] [place] [facility] [address] [facility], [address], [place], [address], Progress Notes * Rere REESE ADOB: [birth year] (53 yo F)Acc No.[id number]:07/30/2024 HOSP F/U Patient: Dayana Rere CASIANO Provider: Dayana Quiroz MD :1970 A ge:53 Y S ex:Female Date:07/30/2024 Address:[address] [place] [address] [id number] Pcp:Michaelle Rivas Subjective: * Chief Complaints: * [address] [facility] D/C 07/24/2024. * HPI: I ntrim [...] posthospital visit from above dates. Admitted to [facility] on 07/21/2024 with possible pouchitis -initially treated with IV antibiotics but found to have C. difficile and transitioned over to vancomycin. Diarrhea improved and she was discharged home with pbetty Prescott and follow-up with our office. No evidence of pouchitis was found on further imaging and [facility] GI did not think patient needed further intervention from her colostomy status recently at . * Medical History: H ormone replacement therapy, Depression, Copd, Asthma, Smoker, Tremors, Coronary artery disease, status post CABG May 08 at [facility], Sepsis, bowel ischemia and colostomy April/2024 at [facility]. * Surgical History: l t [...] active: no. Travel outside [place]: no. 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 * Medications: T aking Simethicone 80 [...] 07/30/2024 Generated for Little catalan/Fior/eTalbinsmitting on: 0 08/09/2024 06:14 PM EDT History and Physical Notes * HPI (History of Present Illness) Category Sub-Category Detail Notes Category Not es [place]trim History Transition of care visit from hospital Date of admission to hospital:: 07/21/2024 Patient here for posthospital visit from above dates. Admitted to [facility] on 07/21/2024 with possible pouchitis -initially treated with IV antibiotics but found to have C. difficile and transitioned over to vancomycin. Diarrhea improved and she was discharged home with p.o. Vanco and follow-up with our office. No evidence of pouchitis was found on further imaging and [facility] GI did not think patient needed [...]
--- OUTSIDE RECORDS SUMMARY | 2024-07-31 09:00 | XMS_ITS | Encounter Summary ---
Author Organization Healthcare Address [address] [place] [address] Care Team Providers Care Drywall Finisher Name Role Phone Champ Quiroz MD Primary Care Provider [phone] Reason for Visit * Reason Comments Post-op * Consultation (Routine) - Closed Specialty Diagnoses / Procedures Referred By Contac t Referred To Contact Diagnoses S/P colon resection Trinity Yousif S, ACCOUNTS RECEIVABLE ANALYST [address] [facility] [address] [place] [address] Phone: tel: fax: Lidia Troncoso MD [address] [address] Phone: tel: fax: Referral ID Status Reason Start Date Expiration Date V isits Requested Visits Authorized [id number] Closed Specialty Services Required 06/21/2024 12/21/2025 1 1 Encounter Details Date Type Department Care Team (Late st Contact Info) Description 07/31/2024 9:00 AM EDT [facility] [address] [place] [address] Lidia Troncoso MD [phone] [place] [phone] S/P colostomy (CMS/HCC) (Primary Dx); S/P colon [...] in a intermediate (including now)? No 05/02/2024 AUDIT-C Answer Date [...] the past 12 months has th e [employer], gas, oil, or water [employer] threatened to shut off services in your [...] file Social Connections: Unknown (11/22/2022) Received from [facility] Family and Community Support Help with Day-to-Day [...] Date Anxiety COPD (chronic obstructive pulmonary disease) ([facility]) 05/01/2024 Continue Duo nebs q6 SPO2 goal >88% Depression GERD (gastroesophageal reflux disease) 05/01/2024 Continue Protonix 40 mg daily Hyperkalemia 05/06/2024 Now resolved, pt with hypokalemia requiring replacement On mechanically assisted ventilation ([facility]) 05/06/2024 Arrived to ICU intubated 05/07 extubated to 4LNC 05/08 resolved Tobacco use 05/01/2024 Bonderizer for smoking 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 Complicates all [...] Description 08/14/2024 8:20 AM EDT Office Visit [facility] General Surgery [address] [place] [address] 10/30/2024 10:45 AM EDT Office Visit [facility] General Surgery [address] [place] [address] Lidia Troncoso MD [address] [place] [address] documented as of this encounter Goals Goal [...] documented as of this encounter Care Teams Drywall Finisher Relationship Specialty Start Date End Date Champ Quiroz MD [address] [place] [address] PCP - General Internal Medicine 06/29/24 documented as of this encounter
[2024-08-09] VITALS (9 sets, daily range): BP systolic 86–195; BP diastolic 62–141; PULSE 77–96; RESP 15–18; TEMP 36.7–36.8; O2SAT 95–98; BMI 22.0
--- OUTSIDE RECORDS SUMMARY | 2024-08-09 18:14 | XMS_ITS | Encounter Summary ---
Author Organization [facility] Address [address] [place] [address] Care Team Providers Care Rest Room Matron Name Role Phone Champ Quiroz MD Primary Care Provider + [phone] Encounter Details Date Type Department Care Team [...] in the past 12 m [facility], were you homeless or living in a mcfp (including now)? No 05/02/2024 AUDIT-C Answer Date [...] the past 12 months has th e [employer], gas, oil, or water company threatened to [...] Description 08/14/2024 8:20 AM EDT Office Visit [facility] General Surgery [address], [address] [place] [address] 10/30/2024 10:45 AM EDT Office Visit [facility] General Surgery [address], [address] [place] [address] Lidia Troncoso MD [address] [place] [address] documented as of this encounter Goals Goal [...] documented as of this encounter Care Teams Rest Room Matron Relationship Specialty Start Date End Date Champ Quiroz MD formerly [facility] [address] [place] [address] PCP - General Internal Medicine 06/29/24 documented as of this encounter
--- OUTSIDE RECORDS SUMMARY | 2024-08-09 18:14 | XMS_ITS | Encounter Summary ---
Author Organization Healthcare Address [address] [place] [address] Care Team Providers Care Human Resources File Clerk Name Role Phone Pcp, No Primary Care Provider Champ Butler MD Primary Care Provider + [phone] Encounter Details Date Type Department Care Team (Late st Contact Info) Description 05/21/2024 Lab Requisition [facility] [address] [place] [address] Tom Dyson MD [address] [facility] [address] [place] [address] Encounter for general adult medical examination without [...] Description 08/14/2024 8:20 AM EDT Office Visit [facility] General Surgery [address], [address] [place] [address] 10/30/2024 10:45 AM EDT Office Visit [facility] General Surgery [address], [address] [place] [address] Lidia Troncoso MD [address] [place] [address] documented as of this encounter [...] at day 1 05/22/2024 8:46 AM EDT [facility] Swab (Nares and Jacey Rectal) 05/21/2024 11:00 AM EDT 05/21/2024 11:55 AM EDT us Tom Dyson MD LAB MICROBIOLOGY - GEN ERAL ORDERABLES Final Result [facility] [address] [place] [address] documented in this encounter Visit Diagnoses Diagnosis [...] documented as of this encounter Care Teams Human Resources File Clerk Relationship Specialty Start Date End Date Pcp, [place] [address] PCP - General Family Medicine 04/04/24 06/28/24 Champ Quiroz MD [address] [place] [address] PCP - General Internal Medicine 06/29/24 documented as of this encounter
--- OUTSIDE RECORDS SUMMARY | 2024-08-09 18:14 | XMS_ITS | Encounter Summary ---
Author Organization Healthcare Address [address] [place] [address] Care Team Providers Care Ramp Boss Name Role Phone Pcp, No Primary Care Provider Champ Butler MD Primary Care Provider + [phone] Encounter Details Date Type Department Care Team (Late st Contact Info) Description 05/14/2024 Lab Requisition [facility] [address] [place] [address] Tom Dyson MD [address] [facility] [address] [place] [address] Encounter for general adult medical examination without [...] time in the past 12 m [facility], were you homeless or living in a nursing home (including now)? No 05/02/2024 Utilities Answer [...] Description 08/14/2024 8:20 AM EDT Office Visit [facility] General Surgery [address], [address] [place] [address] 10/30/2024 10:45 AM EDT Office Visit [facility] General Surgery [address], [address] [place] [address] Lidia Troncoso MD [address] [place] [address] documented as of this encounter [...] at day 1 05/15/2024 11:[address] [facility] Swab (Nares and Jacey Rectal) 05/14/2024 8:24 AM EDT 05/14/2024 2:12 PM EDT us Tom Dyson MD LAB MICROBIOLOGY - GEN ERAL ORDERABLES Final Result [facility] [address] [place] [address] documented in this encounter Visit Diagnoses Diagnosis [...] documented as of this encounter Care Teams Ramp Boss Relationship Specialty Start Date End Date Pcp, [place] [address] PCP - General Family Medicine 04/04/24 06/28/24 Champ Quiroz MD [address] [place] [address] PCP - General Internal Medicine 06/29/24 documented as of this encounter
--- OUTSIDE RECORDS SUMMARY | 2024-08-09 18:14 | XMS_ITS | Encounter Summary ---
Author Organization Healthcare Address [address] [place] [address] Care Team Providers Care Safety Coordinator Name Role Phone Champ Quiroz MD Primary Care Provider [phone] Encounter Details Date Type Department Care Team (Late st Contact Info) Description 08/07/[address] [facility] General Surgery [address], [address] [place] [address] Rina Mason, RN [facility] Social History Tobacco Use Types [...] in the past 12 m [facility], were you homeless or living in a usp (including now)? No 05/02/2024 AUDIT-C Answer Date [...] the past 12 months has th e [employer], gas, oil, or water company threatened to [...] Encounter - Rina Mason RN - 08/07/2024 4:33 PM EDT Patient went to [facility] ED for evaluation today. Nothing further at this time. * Telephone Encounter - Rina Mason RN - 08/07/2024 10:37 AM EDT Patient is having severe lower abdominal pain that won't go away. Advised to go to local Ed for evaluation. Also reports being admitted to [facility] earlier this month for abdominal pain and they did a CT.Will request records and images for review. Viri, please request CT images/ report and d/c summary from [facility]. documented in this encounter Plan of Treatment Upcoming Encounters Date Type Department Care Team (Late st Contact Info) Description 08/14/2024 8:20 AM EDT Office Visit [facility] General Surgery [address], [address] [place] [address] 10/30/2024 10:45 AM EDT Office Visit [facility] General Surgery [address], [address] [place] [address] Lidia Troncoso MD [address] [place] [address] documented as of this encounter Goals Goal [...] as of this encounter Care Teams Safety Coordinator Relationship Specialty Start Date End Date Champ Quiroz MD [address] [place] [address] PCP - General Internal Medicine 06/29/24 documented as of this encounter
--- OUTSIDE RECORDS SUMMARY | 2024-08-09 18:15 | XMS_ITS | Encounter Summary ---
Author Organization Healthcare Address [address] [place] [address] Care Team Providers Care Sodium Methylate Operator Name Role Phone Pcp, No Primary Care Provider Unavailabl e Encounter Details Date Type Department Care Team (Late st Contact Info) Description 06/25/2024 Telephone [facility] General Surgery [address], [address] [place] [address] Katharine Urbano RN TRAUMA & [...] any time in the past 12 m [facility], were you homeless or living in a chcf (including now)? No 05/02/2024 Utilities Answer Date [...] Description 08/14/2024 8:20 AM EDT Office Visit [facility] General Surgery [address], [address] [place] [address] 10/30/2024 10:45 AM EDT Office Visit [facility] General Surgery [address], [address] [place] [address] Lidia Troncoso MD [address] [place] [address] documented as of this encounter [...] documented as of this encounter Care Teams Sodium Methylate Operator Relationship Specialty Start Date End Date Pcp, [place] [address] PCP - General Family Medicine 04/04/24 06/28/24 documented as of this encounter
--- OUTSIDE RECORDS SUMMARY | 2024-08-09 18:15 | XMS_ITS | Encounter Summary ---
Author Organization Healthcare Address [address] [place] [address] Care Team Providers Care Snow Fence Erector Name Role Phone Pcp, No Primary Care [...] any time in the past 12 m [facility], were you homeless or [...] Description 08/14/2024 8:20 AM EDT Office Visit [facility] General Surgery [address], [address] [place] [address] 10/30/2024 10:45 AM EDT Office Visit [facility] General Surgery [address], [address] [place] [address] Lidia Troncoso MD [address] [place] [address] documented as of this encounter Goals Goal [...] documented as of this encounter Care Teams Snow Fence Erector Relationship Specialty Start Date End Date Pcp, [place] [address] PCP - General Family Medicine 04/04/24 06/28/24 documented as of this encounter
--- OUTSIDE RECORDS SUMMARY | 2024-08-09 18:15 | XMS_ITS | Encounter Summary ---
Author Organization [facility] Address [address] [place] [address] Care Team Providers Care Dietary Supervisor Name Role Phone Champ Quiroz MD Primary Care Provider + [phone] Encounter Details Date Type Department Care Team [...] any time in the past 12 m [facility], were you homeless or living in a residential (including now)? No 05/02/2024 AUDIT-C Answer Date [...] the past 12 months has th e [employer], gas, oil, or water company threatened to [...] 08/14/2024 8:20 AM EDT Office Visit [facility] General Surgery [address], [address] [place] [address] 10/30/2024 10:45 AM EDT Office Visit [facility] General Surgery [address], [address] [place] [address] Lidia Troncoso MD [address] [place] [address] documented as of this encounter [...] documented as of this encounter Care Teams Dietary Supervisor Relationship Specialty Start Date End Date Champ Quiroz MD [address] [place] [address] PCP - General Internal Medicine 06/29/24 documented as of this encounter
--- OUTSIDE RECORDS SUMMARY | 2024-08-09 18:15 | XMS_ITS | Encounter Summary ---
Author Organization Healthcare Address [address] [place] [address] Care Team Providers Care Chemist Instrumentation Name Role Phone Pcp, No Primary Care Provider Unavailabl e Reason for Visit * Reason Onset Date Comments HCN Clinical Concern/Question 06/26/2024 Encounter Details Date Type Department Care Team (Late st Contact Info) Description 06/26/2024 Telephone [facility] General Surgery [address] [place] [address] Judy Mancuso MD [address] [place] [address] HCN Clinical Concern/Question Social History [...] in the past 12 m [facility], were you homeless or living in a assisted (including now)? No 05/02/2024 Utilities Answer Date [...] to talk to nurse Best contact number: [phone] (home) Optimal time of day to reach caller: ANYTIME Additional comments/information from caller: None Note: Please do not reply to this message. Follow-up communication and further actions as a result of this message need to be communicated with the patient directly, if the patient is not active onMyChart. If the patient is active on MyChart, they will receive notification of the communication/outcome via [employer]. documented in this encounter Plan of Treatment Upcoming Encounters Date Type Department Care Team (Late st Contact Info) Description 08/14/2024 8:20 AM EDT Office Visit [facility] General Surgery [address] [place] [address] 10/30/2024 10:45 AM EDT Office Visit [facility] General Surgery [address], [address] [place] [address] Lidia Troncoso MD [address] [place] [address] documented as of this encounter [...] documented as of this encounter Care Teams Chemist Instrumentation Relationship Specialty Start Date End Date Pcp, [place] [address] PCP - General Family Medicine 04/04/24 06/28/24 documented as of this encounter
--- OUTSIDE RECORDS SUMMARY | 2024-08-09 18:15 | XMS_ITS | Encounter Summary ---
Author Organization Healthcare Address [address] [place] [address] Care Team Providers Care Radio Performer Name Role Phone Champ Quiroz MD Primary Care Provider [phone] Encounter Details Date Type Department Care Team (Late st Contact Info) Description 07/20/2024 Telephone [facility] [address], [address] [place] [address] Ana Luisa Simental RN [id number] [address] [id number] Social History Tobacco Use Types Packs/Day Years [...] the past 12 months has th e [employer], [employer], oil, or water [employer] threatened to shut off services in your [...] Description 08/14/2024 8:20 AM EDT Office Visit [facility] General Surgery [address], [address] [place] [address] 10/30/2024 10:45 AM EDT Office Visit [facility] General Surgery [address], [address] [place] [address] Lidia Troncoso MD [address] [place] [address] documented as of this encounter [...] documented as of this encounter Care Teams Radio Performer Relationship Specialty Start Date End Date Champ Quiroz MD [address] [place] [id number] PCP - General Internal Medicine 06/29/24 documented as of this encounter
--- OUTSIDE RECORDS SUMMARY | 2024-08-09 18:15 | XMS_ITS | Encounter Summary ---
Author Organization [facility] Address [address] [place] [address] Care Team Providers Care Radio Interference Supervisor Name Role Phone Champ Quiroz MD Primary Care Provider + [phone] Encounter Details Date Type Department Care Team [...] at all 06/29/2024 2:40 PM EDT Marva Meyers S Trouble concentrating on thi ngs, such [...] Description 08/14/2024 8:20 AM EDT Office Visit [facility] General Surgery [address], [address] [place] [address] 10/30/2024 10:45 AM EDT Office Visit [facility] General Surgery [address], [address] [place] [address] Lidia Troncoso MD [address] [place] [address] documented as of this encounter Goals Goal Patient Goal Type Associated Problems Recent Progress Patient-Stated? Author Patient will verbalize understanding of orthotic wear , care and precautions to protect surgical repair for additional 4 weeks. Occupational Therapy No Jd Sabillon Patient will demonstrate correct performance of HEP to increase IP motion within 1 therapy visit. Occupational Therapy No Ramandeep Jd Araujo documented as of this encounter Visit Diagnoses [...] as of this encounter Care Teams Radio Interference Supervisor Relationship Specialty Start Date End Date Champ Quiroz MD [address] [place] [address] PCP - General Internal Medicine 06/29/24 documented as of this encounter
--- OUTSIDE RECORDS SUMMARY | 2024-08-09 18:15 | XMS_ITS | Encounter Summary ---
Author Organization Healthcare Address [address] [id number] Care Team Providers Care Workforce Management Consultant Name Role Phone Pcp, No Primary Care Provider Unavailabl e Encounter Details Date Type Department Care Team (Late st Contact Info) Description 06/26/2024 Telephone [facility] [address], [address] [place] [address] Ana Luisa Simental, RN [id number] [address] [place] [address] Social History Tobacco Use Types Packs/Day Years [...] any time in the past 12 m [facility], were you homeless or living in a mcc (including now)? No 05/02/2024 Utilities Answer Date Recorded In the past 12 months has th e [employer], gas, oil, or water [employer] threatened to shut off services in your [...] Description 08/14/2024 8:20 AM EDT Office Visit [facility] General [facility] [address], [address] [place] [address] 10/30/2024 10:45 AM EDT Office Visit [facility] General Surgery [address], [address] [place] [address] Lidia Troncoso MD [address] [place] [address] documented as of this encounter [...] documented as of this encounter Care Teams Workforce Management Consultant Relationship Specialty Start Date End Date Pcp, [place] [address] PCP - General Family Medicine 04/04/24 06/28/24 documented as of this encounter
--- OUTSIDE RECORDS SUMMARY | 2024-08-09 18:16 | XMS_ITS | Encounter Summary ---
Author Organization Healthcare Address [address] [place] [address] Care Team Providers Care Audio Visual Equipment Rental Clerk Name Role Phone Pcp, No Primary [...] in the past 12 m [facility], were you homeless or living in a [...] Description 08/14/2024 8:20 AM EDT Office Visit [facility] General Surgery [address], [address] [place] [address] 10/30/2024 10:45 AM EDT Office Visit [facility] General Surgery [address], [address] [place] [address] Lidia Troncsoo MD [address] [place] [address] documented as of this encounter [...] documented as of this encounter Care Teams Audio Visual Equipment Rental Clerk Relationship Specialty Start Date End Date Pcp, [place] [address] PCP - General Family Medicine 04/04/24 06/28/24 documented as of this encounter
--- OUTSIDE RECORDS SUMMARY | 2024-08-09 18:16 | XMS_ITS | Encounter Summary ---
Author Organization Healthcare Address [address] [place] [address] Care Team Providers Care Ticket Maker Name Role Phone Pcp, No Primary Care [...] Description 08/14/2024 8:20 AM EDT Office Visit [facility] General Surgery [address], [address] [place] [address] 10/30/2024 10:45 AM EDT Office Visit [facility] General Surgery [address], [address] [place] [address] Lidia Troncoso MD [address] [place] [address] documented as of this encounter [...] documented as of this encounter Care Teams Ticket Maker Relationship Specialty Start Date End Date Pcp, [place] [address] PCP - General Family Medicine 04/04/24 06/28/24 documented as of this encounter
--- OUTSIDE RECORDS SUMMARY | 2024-08-09 18:16 | XMS_ITS | Encounter Summary ---
Author Organization Healthcare Address [address] [place] [address] Care Team Providers Care Precipitator Name Role Phone Pcp, No Primary Care [...] in the past [address] [facility], were you homeless or living in a [...] Description 08/14/2024 8:20 AM EDT Office Visit [facility] General Surgery [address], [address] [place] [address] 10/30/2024 10:45 AM EDT Office Visit [facility] General Surgery [address], [address] [place] [address] Lidia Troncoso MD [address] [place] [address] documented as of this encounter [...] documented as of this encounter Care Teams Precipitator Relationship Specialty Start Date End Date Pcp, [place] [address] PCP - General Family Medicine 04/04/24 06/28/24 documented as of this encounter
--- OUTSIDE RECORDS SUMMARY | 2024-08-09 18:16 | XMS_ITS | Clinical Summary ---
Author Organization [facility] Address [address] 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 Name Role Phone Champ Quiroz MD Primary Care Provider [phone] Allergies Active Allergy Reactions Criticality Noted Date [...] Date Type Department Care Team Description 08/07/2024 Orders Only External Location [address] [place] [address] Provider, External 08/07/2024 Telephone [facility] General Surgery [address], [address] [place] [phone] Rina Mason RN 07/31/2024 9:00 AM EDT Office Visit [facility] General Surgery [address], [address] [place] [phone] Lidia Troncoso MD S/P colostomy ([facility]) (Primary Dx); S/P colon resection 07/31/2024 Travel 07/21/2024 Orders Only External Location [address] [place] [phone] Sundeep Fisher MD 07/20/2024 Telephone [facility] Cardiothoracic [address], [address] [place] [phone] Ana Luisa Simental RN 07/18/2024 11:00 AM EDT Office Visit [facility] Cardiothoracic [address], [address] [place] [phone] Maite Austin MD CAD, multiple vessel (Primary Dx); Tobacco use; Anxiety and depression; Chronic obstructive pulmonary disease, unspecified COPD type ([facility]); NSTEMI (non-ST elevated myocardial infarction) ([facility]); THOM (obstructive sleep apnea); S/P CABG x 4; Post-op pain 07/18/2024 9:52 AM EDT - 07/18/2024 11:59 PM EDT Hospital Encounter [facility] Radiology [address], [address] [place] [phone] CAD, multiple vessel Discharge Disposition: Home or Self Care 07/18/2024 Travel 06/29/2024 2:30 PM EDT Office Visit [facility] General Surgery [address], [address] [place] [phone] Lidia Troncoso MD 06/29/2024 Travel 06/26/2024 Telephone [facility] Cardiothoracic [address], [address] [place] [address] Ana Luisa Simental RN 06/26/2024 Telephone [facility] General Surgery [address], [address] [place] [address] Judy Mancuso MD HCN Clinical Concern/Question 06/25/2024 Telephone [facility] General Surgery [address], [address] [place] [address] Katharine Urbano RN 06/21/2024 Travel 06/20/2024 Travel 06/19/2024 Travel 06/18/2024 Travel 06/17/2024 Travel 06/15/2024 Travel 06/14/2024 Travel 06/11/2024 Travel 06/09/2024 Travel 06/08/2024 Travel 06/05/2024 Travel 06/04/2024 Travel 06/01/2024 Travel 05/31/2024 Travel 05/30/2024 Travel 05/29/2024 Results Follow-Up Colorectal Surgery [address] [place] [address] Lidia Troncoso MD 05/29/2024 Travel 05/28/2024 Travel 05/27/2024 Travel 05/26/2024 Travel 05/25/2024 Travel 05/24/2024 Travel 05/23/2024 1:30 PM EDT Anesthesia Event [facility] [address] [place] [address] Compa Cuellar MD Carney Tinsley, Amanda S, APRN, DNP 05/23/2024 12:31 PM EDT - 05/23/2024 4:06 PM EDT Surgery [facility] [address] [place] [address] Judy Mancuso MD LAPAROTOMY, EXPLORATORY, possible bowel resection, possible ostomy [53047 (CPT )] 05/23/2024 Travel 05/22/2024 Travel 05/21/2024 Lab Requisition [facility] [address] [place] [address] Tom Dyson MD Encounter for general adult medical examination without abnormal findings 05/21/2024 Travel 05/20/2024 Travel 05/19/2024 Travel 05/18/2024 Travel 05/17/2024 Travel 05/16/2024 Travel 05/15/2024 Travel 05/14/2024 Lab Requisition [facility] [address] [place] [address] Tom Dyson MD Encounter for general adult medical examination without abnormal findings 05/14/2024 Travel 05/13/2024 Travel 05/12/2024 Travel 05/11/2024 Travel 05/10/2024 Travel 05/09/2024 Travel 05/01/2024 11:01 PM EDT - 06/21/2024 3:41 PM EDT Hospital Encounter [facility] [address] [place] [address] Edson Mcclure, Erum Bustos MD Reda, Hassan [...] any time in the past 12 m [facility], were you homeless or [...] [facility] General Surgery [address], [address] [place] [address] 10/30/2024 10:45 AM EDT Office Visit [facility] General Surgery [address], [address] [place] [address] Lidia Troncoso MD [address] [facility] [address] [place] [address] Health Maintenance Due Date Last Done Comments [...] 11/03/2019 [facility]-Zoster Vaccines (1 of 2) 11/03/2019 [id number] Vaccine (1 - season) 2023 [facility]-Influenza Vaccine (Seaso n Ended) [...] [employer] Implanted Type Area Counseling Director Device Identifier Shelf Expiration Date Model / Serial / Lot Pledget Ptfe Renwick 4.8mm X 6mm - [id number] Implanted:05/06 by Maite Austin MD at [facility] (Quantity not on file) [id number] / / Procedures Procedure Name Priority Date/Time Associated Diagnosis Comments CT MSK OUTSIDE IMAGES 08/07/2024 12:[address] ANGIO ABDOMEN PELVIS 07/21/2024 7:18 PM EDT ECG ADULT Routine 07/18/2024 11:22 AM EDT [...] 12:58 AM EDT MAGNESIUM, PLASMA Routine 06/14/2024 12: 58 AM EDT CBC W/O DIFFERENTIAL Routine 06/14/2024 [...] OXYGEN THERAPY Routine 05/30/2024 8:00 PM EDT MA NEGATIVE PRESSURE WOUND THERAPY DME >50 SQ [...] OXYGEN THERAPY Routine 05/28/2024 8:00 PM EDT MA NEGATIVE PRESSURE WOUND THERAPY DME >50 SQ CM Routine 05/28/2024 6:10 PM EDT Colon perforation (CMS/HCC) MA CRITICAL CARE, ADDL 30 MIN Routine 05/28/2024 11:39 AM EDT CAD, multiple vessel S/P CABG x 4 OXYGEN THERAPY Routine 05/28/2024 8:00 AM EDT PEP THERAPY Routine 05/28/2024 6:00 AM EDT XR CHEST 1 VIEW Routine 05/28/2024 2:04 AM EDT MORPHOLOGY Routine 05/28/2024 12:47 AM EDT MANUAL DIFFERENTIAL Routine 05/28/2024 1 2:47 AM EDT RENAL FUNCTION PANEL, PLASMA Routine 05/28/2024 12:47 AM EDT MAGNESIUM, PLASMA Routine 05/28/2024 12: 47 AM EDT CBC WITH AUTO DIFFERENTIAL Routine 05/28/2024 12:47 AM EDT PEP THERAPY Routine 05/27/2024 10:00 PM EDT XR ABDOMEN 1 VIEW STAT 05/27/2024 9:4 5 PM EDT OXYGEN THERAPY Routine 05/27/2024 8:00 PM EDT POCT GLUCOSE METER UNSOLICITED RESULTS Routine 05/27/2024 6:52 PM EDT PEP THERAPY Routine 05/27/2024 6:00 PM EDT PEP THERAPY Routine 05/27/2024 2:00 PM EDT MA CRITICAL CARE, E/M 30-74 MINUTES Routine 05/27/2024 11:12 AM EDT Colon perforation ([facility]) PEP THERAPY Routine 05/27/2024 10:00 AM EDT [...] BLOOD CELLS Routine 05/26/2024 4:16 PM EDT MA CRITICAL CARE, ADDL 30 MIN Routine 05/26/2024 [...] PEP THERAPY Routine 05/24/2024 2:00 PM EDT MA CRITICAL CARE, E/M 30-74 MINUTES Routine 05/24/2024 11:04 AM EDT S/P CABG x 4 MORPHOLOGY Routine 05/24/2024 10:18 AM EDT MANUAL DIFFERENTIAL Routine 05/24/2024 1 0:18 AM EDT BASIC METABOLIC PANEL, PLASMA Routine 05/24/2024 10:18 AM EDT MAGNESIUM, PLASMA Routine 05/24/2024 10: 18 AM EDT CBC WITH AUTO DIFFERENTIAL Routine [...] ANESTHESIA PLACEHOLDER Routine 05/23/2024 1:43 PM EDT MA AN ELECTIVE ENDOTRACHEAL AIRWAY Routine 05/23/2024 1:43 PM EDT MA PART REMOVAL COLON W ANASTOMOSIS 05/23/2024 1:16 PM EDT Colon perforation (CMS/HCC) MA EXPLORATORY OF ABDOMEN 05/23/2024 1:16 PM EDT [...] 11:32 AM EDT MAGNESIUM, PLASMA Timed 05/22/2024 11: 32 AM EDT IONIZED CALCIUM, WHOLE BLOOD Timed [...] 12:01 AM EDT MAGNESIUM, PLASMA Timed 05/22/2024 12: 01 AM EDT IONIZED CALCIUM, WHOLE BLOOD Timed [...] 12:09 PM EDT MAGNESIUM, PLASMA Timed 05/21/2024 12: 09 PM EDT IONIZED CALCIUM, WHOLE BLOOD Timed 05/21/2024 12:09 PM EDT MA CRITICAL CARE, E/M 30-74 MINUTES Routine 05/21/2024 [...] 11:48 PM EDT MANUAL DIFFERENTIAL Routine 05/20/2024 1 1:48 PM EDT MAGNESIUM, PLASMA Timed 05/20/2024 11: 48 PM EDT RENAL FUNCTION PANEL, PLASMA Timed [...] PEP THERAPY Routine 05/20/2024 2:00 PM EDT MA CRITICAL CARE, E/M 30-74 MINUTES Routine 05/20/2024 [...] PEP THERAPY Routine 05/19/2024 6:00 PM EDT MA CRITICAL CARE, E/M 30-74 MINUTES Routine 05/19/2024 2:52 PM EDT S/P CABG x 4 PEP THERAPY Routine 05/19/2024 2:00 PM EDT POCT GLUCOSE METER UNSOLICITED RESULTS Routine 05/19/2024 11:52 AM EDT TRIGLYCERIDES, PLASMA Add-On 05/19/2024 11:42 AM EDT MAGNESIUM, PLASMA Routine 05/19/2024 11: 42 AM EDT RENAL FUNCTION PANEL, PLASMA Routine 05/19/2024 11:42 AM EDT PEP THERAPY Routine 05/19/2024 10:00 AM EDT OXYGEN THERAPY Routine 05/19/2024 8:00 AM EDT PEP THERAPY Routine 05/19/2024 6:00 AM EDT XR CHEST 1 VIEW Routine 05/19/2024 4:43 AM EDT XR ABDOMEN 1 VIEW Routine 05/19/2024 4:4 3 AM EDT MA CRITICAL CARE, ADDL 30 MIN Routine 05/19/2024 [...] AM EDT INSERT PICC LINE Routine 05/19/2024 12:5 0 AM EDT COMPREHENSIVE GI PANEL BY PCR Routine 05/18/2024 11:47 PM EDT CLOSTRIDIODES (CLOSTRIDIUM) DIFFICILE,PCR Routine 05/18/2024 11:47 PM EDT POCT GLUCOSE METER UNSOLICITED RESULTS Routine 05/18/2024 11:21 PM EDT PEP THERAPY Routine 05/18/2024 10:00 PM EDT OXYGEN THERAPY Routine 05/18/2024 8:00 PM EDT PEP THERAPY Routine 05/18/2024 6:00 PM EDT POCT GLUCOSE METER UNSOLICITED RESULTS Routine 05/18/2024 5:55 PM EDT MA CRITICAL CARE, E/M 30-74 MINUTES Routine 05/18/2024 [...] 2:19 AM EDT MAGNESIUM, PLASMA Routine 05/18/2024 12: 20 AM EDT COMPREHENSIVE METABOLIC PANEL, PLASMA Routine [...] PEP THERAPY Routine 05/17/2024 6:00 PM EDT MA CRITICAL CARE, E/M 30-74 MINUTES Routine 05/17/2024 [...] 10:29 AM EDT WBC DIFFERENTIAL Add-On 05/17/2024 10:2 9 AM EDT EXTRA TUBE LAVENDER TOP Routine 05/17/2024 10:29 AM EDT EXTRA TUBES Routine 05/17/2024 10:29 AM EDT LIPASE, PLASMA Add-On 05/17/2024 10:23 AM EDT COMPREHENSIVE METABOLIC PANEL, PLASMA Routine 05/17/2024 10:23 AM EDT C-REACTIVE PROTEIN, PLASMA Routine 05/17/2024 10:23 AM EDT MAGNESIUM, PLASMA Routine 05/17/2024 10: 23 AM EDT BASIC METABOLIC PANEL, PLASMA Routine [...] 12:10 PM EDT POTASSIUM, PLASMA Routine 05/16/2024 12: 05 PM EDT PEP THERAPY Routine 05/16/2024 10:00 [...] 12:43 AM EDT MAGNESIUM, PLASMA Routine 05/13/2024 12: 43 AM EDT PEP THERAPY Routine 05/12/2024 10:00 PM EDT OXYGEN THERAPY Routine 05/12/2024 8:00 PM EDT POCT GLUCOSE METER UNSOLICITED RESULTS Routine 05/12/2024 6:40 PM EDT PEP THERAPY Routine 05/12/2024 6:00 PM EDT PEP THERAPY Routine 05/12/2024 2:00 PM EDT LACTATE, VENOUS Routine 05/12/2024 1:11 PM EDT MAGNESIUM, PLASMA Routine 05/12/2024 12: 55 PM EDT RENAL FUNCTION PANEL, PLASMA Routine [...] 12:34 AM EDT PHOSPHORUS, PLASMA Routine 05/12/2024 12 :34 AM EDT MAGNESIUM, PLASMA Routine 05/12/2024 12: 34 AM EDT POCT GLUCOSE METER UNSOLICITED RESULTS Routine 05/12/2024 12:22 AM EDT XR ABDOMEN 1 VIEW STAT 05/11/2024 11: 53 PM EDT PEP THERAPY Routine 05/11/2024 10:00 [...] EDT XR ABDOMEN 1 VIEW STAT 05/10/2024 11: 41 AM EDT PEP THERAPY Routine 05/10/2024 10:00 [...] EDT XR ABDOMEN 1 VIEW Routine 05/09/2024 12: 21 PM EDT POCT GLUCOSE METER UNSOLICITED RESULTS [...] 11:30 AM EDT PHOSPHORUS, PLASMA Routine 05/09/2024 11 :30 AM EDT BASIC METABOLIC PANEL, PLASMA Routine 05/09/2024 11:30 AM EDT MAGNESIUM, PLASMA Routine 05/09/2024 11: 30 AM EDT PREALBUMIN, PLASMA Routine 05/09/2024 11 :30 AM EDT HEPATIC FUNCTION PANEL Routine 11:30 AM EDT MA CRITICAL CARE, ADDL 30 MIN Routine 05/09/2024 [...] W/O DIFFERENTIAL Routine 05/09/2024 12:52 AM EDT from Last 3 Months Results * CT MSK OUTSIDE IMAGES (08/07/2024 12:27 PM EDT) Anatomical Region Laterality Modality Computed Tomogra phy 08/07/2024 12:2 7 PM EDT us External Provider IMG CT PROCEDURES Final Result * CT Angio Abdomen Pelvis (07/21/2024 7:18 PM EDT) Anatomical Region Laterality Modality Abdomen, Pelvis Computed Tomogra phy 07/21/2024 7:18 PM EDT Sundeep Fisher MD IMG CT PROCEDURES Final Result * ECG Adult (07/18/2024 11:22 AM EDT) Only the most recent of3 resultswithin the time period is included. EKG DIAGNOSIS CLASS Abnormal MUSE ECG Ventricular Rate 109 BPM MUSE ECG Atrial Rate 109 BPM MUSE ECG MA Interval 120 ms MUSE ECG QRSD Interval 70 ms MUSE ECG QT Interval 394 ms MUSE ECG QTC Interval 530 ms MUSE ECG P [place] 77 degrees MUSE ECG R [place] 79 degrees MUSE ECG T Wave [place] 100 degrees MUSE ECG Diagnosis Sinus tachycardia MUSE ECG Diagnosis Nonspecific ST and T wave abnormality MUSE ECG Diagnosis MUSE ECG Diagnosis MUSE ECG Diagnosis MUSE ECG Diagnosis Confirmed by Yahaira Gomez ([id number]) on 07/18/2024 9:29:04 PM MUSE ECG 07/18/2024 11:2 2 AM EDT 07/18/2024 9:29 PM EDT Maite Austin MD ECG ORDERABLES Final Result MUSE ECG * (ABNORMAL) CBC W/O Differential (07/18/2024 10:14 AM EDT) Only the most recent of28 resultswithin the time period is included. WBC Count 13.01(H) 3.70 - 10.30 10*3/uL LAB HEMATOLOGY METHOD 07/18/2024 11:08 AM EDT [facility] RBC Count 3.97 3.90 - 5.20 10*6/uL LAB HEMATOLOGY METHOD 07/18/2024 11:08 AM EDT [facility] HGB 11.5 11.2 - 15.7 g/dL LAB HEMATOLOGY METHOD 07/18/2024 11:08 AM EDT [facility] HCT 35.5 34.0 - 45.0 % LAB HEMATOLOGY METHOD 07/18/2024 11:08 AM EDT [facility] Platelet Count 582(H) 155 - 369 10*3/uL LAB HEMATOLOGY METHOD 07/18/2024 11:08 AM EDT [facility] MCV 89 79 - 98 fL LAB HEMATOLOGY METHOD 07/18/2024 11:08 AM EDT [facility] MCH 29.0 26.0 - 32.0 pg LAB HEMATOLOGY METHOD 07/18/2024 11:08 AM EDT [facility] MCHC 32.4 30.7 - 35.5 g/dL LAB HEMATOLOGY METHOD 07/18/2024 11:08 AM EDT [facility] RDW 14.9(H) 11.5 - 14.5 % LAB HEMATOLOGY METHOD 07/18/2024 11:08 AM EDT [facility] MPV 9.1 8.8 - 12.5 fL LAB HEMATOLOGY METHOD 07/18/2024 11:08 AM EDT [facility] nRBC 0.0 <=0.0 per 100 WBCs LAB HEMATOLOGY METHOD 07/18/2024 11:08 AM EDT [facility] Blood Venous blood specimen / Unknown Venipuncture / Unknown 07/18/2024 10:14 AM EDT 07/18/2024 10:14 AM EDT us Maite Austin MD LAB BLOOD ORDERABLES Final Resu lt [facility] [address] [place] [address] * (ABNORMAL) Basic Metabolic Panel, Plasma (07/18/2024 10:14 AM EDT) Only the most recent of19 resultswithin the time period is included. Glucose, Plasma 126(H) 74 - 99 mg/dL 07/18/2024 12:13 PM EDT [facility] BUN, Plasma 5(L) 7 - 21 mg/dL 07/18/2024 12:13 PM EDT [facility] Creatinine, Plasma 0.54(L) 0.60 - 1.10 mg/dL 07/18/2024 12:13 PM EDT [facility] BUN/Creatinine Ratio 9 07/18/2024 12:13 PM EDT [facility] Sodium, Plasma 137 136 - 145 mmol/L 07/18/2024 12:13 PM EDT [facility] Potassium, Plasma 2.5(LL) 3.6 - 4.9 mmol/L 07/18/2024 12:13 PM EDT [facility] Chloride, Plasma 95(L) 97 - 107 mmol/L 07/18/2024 12:13 PM EDT [facility] CO2, Plasma 29 22 - 29 mmol/L 07/18/2024 12:13 PM EDT [facility] Anion Gap 13 6 - 16 mmol/L 07/18/2024 12:13 PM EDT [facility] Total Calcium, Plasma 8.2(L) 8.9 - 10.2 mg/dL 07/18/2024 12:13 PM EDT [facility] eGFRcr 109.6 mL/min/1.7 3m*2 07/18/2024 12:13 PM EDT [facility] Comment:Reported eGFRcr in m L/min/1.73m2 is based the CKD-EPI 2020 equation that does not use a race coefficient. Blood Venous blood specimen / Unknown Venipuncture / Unknown 07/18/2024 10:14 AM EDT 07/18/2024 10:14 AM EDT us Maite Austin MD LAB BLOOD ORDERABLES Final Resu lt [facility] [address] [place] [address] * XR Chest 2 Views (07/18/2024 9:58 [...] 4:36 AM EDT) Only the most recent of28 resultswithin the time period is included. Anatomical [...] MD on 06/21/2024 7:27 AM Trinity Yousif COLLABORATING SUPERVISING PHYSICIAN IMG XR PROCEDURES Final Result * XR [...] Zamzam Banda MD on 06/21/2024 10:22 AM us Trinity Yousif APRN IMG XR PROCEDURES Final Result * (ABNORMAL) Magnesium (06/21/2024 2:59 AM EDT) Only the most recent of56 resultswithin the time period is included. Magnesium, Plasma 1.7(L) 1.9 - 2.4 mg/dL 06/21/2024 3:52 AM EDT [facility] Blood Venous blood specimen / Unknown Venipuncture / Unknown 06/21/2024 2:59 AM EDT 06/21/2024 3:23 AM EDT us Trinity Yousif APRN LAB BLOOD ORDERABLES Final Res ult [facility] [address] [place] [address] * (ABNORMAL) Comprehensive metabolic panel (06/21/2024 2:59 AM EDT) Only the most recent of21 resultswithin the time period is included. Glucose, Plasma 94 74 - 99 mg/dL 06/21/2024 3:52 AM EDT [facility] BUN, Plasma 4(L) 7 - 21 mg/dL 06/21/2024 3:52 AM EDT [facility] Creatinine, Plasma 0.63 0.60 - 1.10 mg/dL 06/21/2024 3:52 AM EDT [facility] BUN/Creatinine Ratio 6 06/21/2024 3:52 AM EDT [facility] Sodium, Plasma 131(L) 136 - 145 mmol/L 06/21/2024 3:52 AM EDT [facility] Potassium, Plasma 3.9 3.6 - 4.9 mmol/L 06/21/2024 3:52 AM EDT [facility] Chloride, Plasma 98 97 - 107 mmol/L 06/21/2024 3:52 AM EDT [facility] CO2, Plasma 25 22 - 29 mmol/L 06/21/2024 3:52 AM EDT [facility] Anion Gap 8 6 - 16 mmol/L 06/21/2024 3:52 AM EDT [facility] Total Calcium, Plasma 8.1(L) 8.9 - 10.2 mg/dL 06/21/2024 3:52 AM EDT [facility] Total Protein 6.7 6.3 - 7.9 g/dL 06/21/2024 3:52 AM EDT [facility] Albumin, Plasma 2.5(L) 3.5 - 5.2 g/dL 06/21/2024 3:52 AM EDT [facility] AST, Plasma 31 10 - 35 U/L 06/21/2024 3:52 AM EDT [facility] ALT, Plasma 54(H) 10 - 35 U/L 06/21/2024 3:52 AM EDT [facility] Alkaline Phosphatase, Plasma 155(H) 35 - 104 U/L 06/21/2024 3:52 AM EDT [facility] Total Bilirubin, Plasma 0.2 0.2 - 1.1 mg/dL 06/21/2024 3:52 AM EDT [facility] eGFRcr 105.6 mL/min/1.7 3m*2 06/21/2024 3:52 AM EDT [facility] Comment:Reported eGFRcr in m L/min/1.73m2 is based the CKD-EPI 2020 equation that does not use a race coefficient. Blood Venous blood specimen / Unknown Venipuncture / Unknown 06/21/2024 2:59 AM EDT 06/21/2024 3:23 AM EDT us Trinity Yousif COLLABORATING SUPERVISING PHYSICIAN LAB BLOOD ORDERABLES Final Res ult [facility] [address] [place] [address] * N-Terminal Probnp, Plasma (06/20/2024 4:45 AM EDT) Only the most recent of6 resultswithin the time period is included. N-Terminal, PROBNP, Plasma 652 0 - 899 pg/mL 06/20/2024 6:04 AM EDT [facility] Blood Venous blood specimen / Unknown Venipuncture / Unknown 06/20/2024 4:45 AM EDT 06/20/2024 5:24 AM EDT us Dulce Alamo APRN LAB BLOOD ORDERABLES Final R esult [facility] [address] [place] [address] * (ABNORMAL) POCT glucose meter (06/17/2024 8:09 PM EDT) Only the most recent of102 resultswithin the time period is included. [facility] POCT Glucose 145(H) 74 - 99 [...] Comment 06/17/2024 8:11 PM EDT [facility] Cutter Helper ID Sam Deakunuh 025 8:11 PM EDT [facility] Device ID [id number] 06/17/2024 8:11 PM EDT [facility] Specimen Type POC Capillary 06/17/2024 8:11 PM EDT [facility] Blood Capillary blood specimen / Unknown 06/17/2024 8:09 PM EDT 06/17/2024 8:11 PM EDT us Maite Austin MD LAB POINT OF CARE TE ST DOCKED DEVICE UNSOLICITED RESULTS Final Result [facility] [address] [place] [address] * SEND JOCELYNE MESSAGE (06/16/2024 8:21 PM EDT) Urine Urine specimen obtained by clean catch procedure / Unknown Non-blood Collection / Unknown 06/16/2024 8:21 PM EDT 06/16/2024 8:26 PM EDT us Trinity S Yousif COLLABORATING SUPERVISING PHYSICIAN LAB URINE ORDERABLES Final Res ult Performing Organization Address [facility] Co de Phone Number [facility] [address] [place] [address] * Urine Francis Panel (06/16/2024 8:21 PM EDT) Extra Sent for Culture 06/16/2024 10:02 PM EDT [facility] Urine Urine specimen obtained by clean catch procedure / Unknown Non-blood Collection / Unknown 06/16/2024 8:21 PM EDT 06/16/2024 8:26 PM EDT us Trinity Dayana Yousif COLLABORATING SUPERVISING PHYSICIAN LAB URINE ORDERABLES Final Res ult Performing Organization Address [facility] Co pa Phone Number [facility] [address] [place] [address] * Urinalysis Microscopic Examination (06/16/2024 8:21 PM EDT) Urine Urine specimen obtained by clean catch procedure / Unknown Non-blood Collection / Unknown 06/16/2024 8:21 PM EDT 06/16/2024 8:26 PM EDT us Trinity Dayana Yousif COLLABORATING SUPERVISING PHYSICIAN LAB URINE ORDERABLES Final Res ult Performing Organization Address [facility] Phone Number [facility] [address] [place] [address] * (ABNORMAL) Urinalysis with reflex microscopic (Culture NOT Included) (06/16/2024 8:21 PM EDT) Only the most recent of2 resultswithin the time period is included. Color, Urine Yellow LAB URINALYSIS - AUTOMATED METHOD 06/16/2024 8:55 PM EDT [facility] Clarity, Urine Clear LAB URINALYSIS - AUTOMATED METHOD 06/16/2024 8:55 PM EDT [facility] Spec [place], Urine 1.013 1.005 - 1.030 LAB URINALYSIS - AUTOMATED METHOD 06/16/2024 8:55 PM EDT [facility] pH, Urine 6.0 5.0 - 8.0 LAB URINALYSIS - AUTOMATED METHOD 06/16/2024 8:55 PM EDT [facility] Protein, Urine Negative Negative mg/dL LAB URINALYSIS - AUTOMATED METHOD 06/16/2024 8:55 PM EDT [facility] Glucose, Urine Negative Negative mg/dL LAB URINALYSIS - AUTOMATED METHOD 06/16/2024 8:55 PM EDT [facility] Ketones, Urine Negative Negative mg/dL LAB URINALYSIS - AUTOMATED METHOD 06/16/2024 8:55 PM EDT [facility] Blood, Urine Negative Negative LAB URINALYSIS - AUTOMATED METHOD 06/16/2024 8:55 PM EDT [facility] Bilirubin, Urine Negative Negative LAB URINALYSIS - AUTOMATED METHOD 06/16/2024 8:55 PM EDT [facility] Urobilinogen, Urine 0.2 0.2 to 1.0 mg/dL LAB URINALYSIS - AUTOMATED METHOD 06/16/2024 8:55 PM EDT [facility] Leukocytes, Urine Large(A) Negative LAB URINALYSIS - AUTOMATED METHOD 06/16/2024 8:55 PM EDT [facility] Nitrite, Urine Negative Negative LAB URINALYSIS - AUTOMATED METHOD 06/16/2024 8:55 PM EDT [facility] RBC, Urine 2 0 to 3 /HPF LAB URINALYSIS - AUTOMATED METHOD 06/16/2024 8:55 PM EDT [facility] WBC, Urine >50(A) 0 to 5 /HPF LAB URINALYSIS - AUTOMATED METHOD 06/16/2024 8:55 PM EDT [facility] Squamous Epithelial Cells 11 - 20(A) 0 to 5 /HPF LAB URINALYSIS - AUTOMATED METHOD 06/16/2024 8:55 PM EDT [facility] Hyaline Casts 0 - 2 0 to 5 /LPF LAB URINALYSIS - AUTOMATED METHOD 06/16/2024 8:55 PM EDT [facility] Bacteria, Urine Present Negative LAB URINALYSIS - AUTOMATED METHOD 06/16/2024 8:55 PM EDT [facility] Renal Tubular Cells Present Absent 06/16/2024 8:55 PM EDT [facility] Transitional Epithelial Cells Present Absent 06/16/2024 8:55 PM EDT [facility] Yeast (Budding and/or Pseudohyphae) Present(A) Absent 06/16/2024 8:55 PM EDT [facility] Urine Urine specimen obtained by clean catch procedure / Unknown Non-blood Collection / Unknown 06/16/2024 8:21 PM EDT 06/16/2024 8:26 PM EDT Narrative [facility] - 06/16/2024 8:55 PM EDT Performed by manual method Trinity Yousif APRN LAB URINE ORDERABLES Final Res ult Performing Organization Address [facility] [place] [address] * Urine Culture (06/16/2024 8:21 PM EDT) Only the most recent of2 resultswithin the time period is included. Culture <10,000 CFU/mL Mixed urogenital, fecal, or skin quincy present. 06/18/2024 10:03 AM EDT [facility] Urine Urine specimen obtained by clean catch procedure / Unknown Non-blood Collection / Unknown 06/16/2024 8:21 PM EDT 06/16/2024 8:26 PM EDT us Trinity Yousif APRN LAB MICROBIOLOGY - GENERAL ORD ERABLES Final Result Performing Organization Address [facility] [facility] [place] [address] * XR Hip Right 2 or 3 [...] MD on 06/15/2024 10:23 AM Trinity Yousif APRN IMG XR PROCEDURES Final Result * (ABNORMAL) Prealbumin (06/15/2024 4:49 AM EDT) Only the most recent of3 resultswithin the time period is included. Prealbumin, Plasma 13.3(L) 20.0 - 41.0 mg/dL 06/15/2024 8:27 AM EDT [facility] Blood Venous blood specimen / Unknown Venipuncture / Unknown 06/15/2024 4:49 AM EDT 06/15/2024 5:28 AM EDT us Trinity Yousif APRN LAB BLOOD ORDERABLES Final Res ult [facility] [address] [place] [address] * CT Head wo IV Contrast (06/14/2024 [...] 8:07 AM Final report signed by Carlos Prabhakra MD on 06/15/2024 8:12 AM Narrative 06/15/2024 [...] Carlos Prabhakar MD on 06/15/2024 8:12 AM us Uriah PHILLIP IMG CT PROCEDURES Final Res ult * (ABNORMAL) Blood gas panel, venous (06/14/2024 12:58 AM EDT) Only the most recent of4 resultswithin the time period is included. pH, Venous 7.42 7.32 - 7.43 LAB HEMATOLOGY METHOD 06/14/2024 1:14 AM EDT [facility] pCO2, Venous 46 37 - 52 mmHg LAB HEMATOLOGY METHOD 06/14/2024 1:14 AM EDT [facility] pO2, Venous 36 25 - 40 mmHg LAB HEMATOLOGY METHOD 06/14/2024 1:14 AM EDT [facility] SO2, Measured, Venous 66 65 - 80 % LAB HEMATOLOGY METHOD 06/14/2024 1:14 AM EDT [facility] Base Excess, Venous 4.7(H) -2.0 - 3.0 mmol/L LAB HEMATOLOGY METHOD 06/14/2024 1:14 AM EDT [facility] Bicarbonate, Calculated, Venous 30(H) 22 - 26 mmol/L LAB HEMATOLOGY METHOD 06/14/2024 1:14 AM EDT [facility] Hematocrit, Whole Blood 33.3(L) 34.0 - 45.0 % LAB HEMATOLOGY METHOD 06/14/2024 1:14 AM EDT [facility] Sodium, Whole Blood 129(L) 136 - 145 mmol/L LAB HEMATOLOGY METHOD 06/14/2024 1:14 AM EDT [facility] Potassium, Whole Blood 3.6 3.6 - 4.9 mmol/L LAB HEMATOLOGY METHOD 06/14/2024 1:14 AM EDT [facility] Chloride, Whole Blood 93(L) 97 - 107 mmol/L LAB HEMATOLOGY METHOD 06/14/2024 1:14 AM EDT [facility] Glucose, Whole Blood 106(H) 74 - 99 mg/dL LAB HEMATOLOGY METHOD 06/14/2024 1:14 AM EDT [facility] Lactate, Venous, Whole Blood 0.7 0.5 - 2.2 mmol/L LAB HEMATOLOGY METHOD 06/14/2024 1:14 AM EDT [facility] Ionized Calcium, Whole Blood 4.6 4.6 - 5.1 mg/dL LAB HEMATOLOGY METHOD 06/14/2024 1:14 AM EDT [facility] Blood Venous blood specimen / Unknown (Central Line) Existing Catheter / Unknown 06/14/2024 12:58 AM EDT 06/14/2024 1:13 AM EDT us Maite Austin MD LAB BLOOD ORDERABLES Final Resu lt [facility] [address] [place] [address] * (ABNORMAL) CBC and differential (06/12/2024 3:24 AM EDT) Only the most recent of21 resultswithin the time period is included. WBC Count 10.53(H) 3.70 - 10.30 10*3/uL LAB HEMATOLOGY METHOD 06/12/2024 3:43 AM EDT [facility] RBC Count 3.17(L) 3.90 - 5.20 10*6/uL LAB HEMATOLOGY METHOD 06/12/2024 3:43 AM EDT [facility] HGB 9.3(L) 11.2 - 15.7 g/dL LAB HEMATOLOGY METHOD 06/12/2024 3:43 AM EDT [facility] HCT 29.4(L) 34.0 - 45.0 % LAB HEMATOLOGY METHOD 06/12/2024 3:43 AM EDT [facility] Platelet Count 393(H) 155 - 369 10*3/uL LAB HEMATOLOGY METHOD 06/12/2024 3:43 AM EDT [facility] MCV 93 79 - 98 fL LAB HEMATOLOGY METHOD 06/12/2024 3:43 AM EDT [facility] MCH 29.3 26.0 - 32.0 pg LAB HEMATOLOGY METHOD 06/12/2024 3:43 AM EDT [facility] MCHC 31.6 30.7 - 35.5 g/dL LAB HEMATOLOGY METHOD 06/12/2024 3:43 AM EDT [facility] RDW 15.2(H) 11.5 - 14.5 % LAB HEMATOLOGY METHOD 06/12/2024 3:43 AM EDT [facility] MPV 9.1 8.8 - 12.5 fL LAB HEMATOLOGY METHOD 06/12/2024 3:43 AM EDT [facility] nRBC 0.0 <=0.0 per 100 WBCs LAB HEMATOLOGY METHOD 06/12/2024 3:43 AM EDT [facility] Differential Type Automated LAB HEMATOLOGY METHOD 06/12/2024 3:43 AM EDT [facility] Neutrophils % 54 % LAB HEMATOLOGY METHOD 06/12/2024 3:43 AM EDT [facility] Lymphocytes % 28 % LAB HEMATOLOGY METHOD 06/12/2024 3:43 AM EDT [facility] Monocytes % 11 % LAB HEMATOLOGY METHOD 06/12/2024 3:43 AM EDT [facility] Eosinophils % 2 % LAB HEMATOLOGY METHOD 06/12/2024 3:43 AM EDT [facility] Basophils % 1 % LAB HEMATOLOGY METHOD 06/12/2024 3:43 AM EDT [facility] Immature Granulocytes % 4 % LAB HEMATOLOGY METHOD 06/12/2024 3:43 AM EDT [facility] Neutrophils Absolute 5.65 1.60 - 6.10 10*3/uL LAB HEMATOLOGY METHOD 06/12/2024 3:43 AM EDT [facility] Lymphocytes Absolute 2.99 1.20 - 3.90 10*3/uL LAB HEMATOLOGY METHOD 06/12/2024 3:43 AM EDT [facility] Monocytes Absolute 1.11(H) 0.30 - 0.90 10*3/uL LAB HEMATOLOGY METHOD 06/12/2024 3:43 AM EDT [facility] Eosinophils Absolute 0.25 0.00 - 0.50 10*3/uL LAB HEMATOLOGY METHOD 06/12/2024 3:43 AM EDT [facility] Basophils Absolute 0.13(H) 0.00 - 0.10 10*3/uL LAB HEMATOLOGY METHOD 06/12/2024 3:43 AM EDT [facility] Immature Granulocytes Absolute 0.40(H) 0.00 - 0.06 10*3/uL LAB HEMATOLOGY METHOD 06/12/2024 3:43 AM EDT [facility] Blood Blood sample taken from central line / Unknown (Central Line) Existing Catheter / Unknown 06/12/2024 3:24 AM EDT 06/12/2024 3:34 AM EDT Narrative [facility] - 06/12/2024 3:43 AM EDT Therapeutic decision making should be based on absolute values, rather than percentages. Uriah PHILLIP LAB BLOOD ORDERABLES Final Result [facility] [address] [place] [address] * (ABNORMAL) WBC Differential (06/11/2024 4:32 AM EDT) Only the most recent of3 resultswithin the time period is included. Differential Type Automated LAB HEMATOLOGY METHOD 06/11/2024 8:40 AM EDT [facility] Neutrophils % 63 % LAB HEMATOLOGY METHOD 06/11/2024 8:40 AM EDT [facility] Lymphocytes % 23 % LAB HEMATOLOGY METHOD 06/11/2024 8:40 AM EDT [facility] Monocytes % 8 % LAB HEMATOLOGY METHOD 06/11/2024 8:40 AM EDT [facility] Eosinophils % 2 % LAB HEMATOLOGY METHOD 06/11/2024 8:40 AM EDT [facility] Basophils % 1 % LAB HEMATOLOGY METHOD 06/11/2024 8:40 AM EDT [facility] Immature Granulocytes % 3 % LAB HEMATOLOGY METHOD 06/11/2024 8:40 AM EDT [facility] Immature Granulocytes Absolute 0.43(H) 0.00 - 0.06 10*3/uL LAB HEMATOLOGY METHOD 06/11/2024 8:40 AM EDT [facility] Neutrophils Absolute 10.15(H) 1.60 - 6.10 10*3/uL LAB HEMATOLOGY METHOD 06/11/2024 8:40 AM EDT [facility] Lymphocytes Absolute 3.53 1.20 - 3.90 10*3/uL LAB HEMATOLOGY METHOD 06/11/2024 8:40 AM EDT [facility] Monocytes Absolute 1.18(H) 0.30 - 0.90 10*3/uL LAB HEMATOLOGY METHOD 06/11/2024 8:40 AM EDT [facility] Basophils Absolute 0.15(H) 0.00 - 0.10 10*3/uL LAB HEMATOLOGY METHOD 06/11/2024 8:40 AM EDT [facility] Eosinophils Absolute 0.25 0.00 - 0.50 10*3/uL LAB HEMATOLOGY METHOD 06/11/2024 8:40 AM EDT [facility] Blood Venous blood specimen / Unknown 06/11/2024 4:32 AM EDT 06/11/2024 4:32 AM EDT us Uriah PHILLIP LAB BLOOD ORDERABLES Final Result Performing Organization Address City/[facility]/ZIP Co de Phone Number [facility] [address] [place] [address] * Lavender Top (06/11/2024 4:32 AM EDT) Only the most recent of2 resultswithin the time period is included. Extra Hold for add-ons 06/11/2024 7:02 AM EDT [facility] Comment:Auto resulted. Blood Venous blood specimen / Unknown 06/11/2024 4:32 AM EDT 06/11/2024 4:32 AM EDT us Maite Austin MD LAB BLOOD ORDERABLES Final Resu lt [facility] [address] [place] [address] * Light Green Top (06/11/2024 4:32 AM EDT) Extra Hold for add-ons 06/11/2024 7:02 AM EDT [facility] Comment:Auto resulted. Blood Venous blood specimen / Unknown 06/11/2024 4:32 AM EDT 06/11/2024 4:32 AM EDT us Maite Austin MD LAB BLOOD ORDERABLES Final Resu lt Performing Organization Address City/[facility] Co de Phone Number [facility] [address] [place] [address] * (ABNORMAL) Procalcitonin (06/11/2024 4:32 AM EDT) Only the most recent of5 resultswithin the time period is included. Procalcitonin, Plasma 0.10(H) <0.09 ng/mL 06/11/2024 8:43 AM EDT [facility] Blood Venous blood specimen / Unknown 06/11/2024 4:32 AM EDT 06/11/2024 4:32 AM EDT Narrative [facility] - 06/11/2024 8:43 AM [...] predict 28 day mortality risk. Please consult [email or web address] for more information. Test performed at [facility]. us Uriah PHILLIP LAB BLOOD ORDERABLES Final Result Performing Organization Address City/[facility]/ZIP Co de Phone Number [facility] [address] [place] [address] * (ABNORMAL) Body Fluid Cell Count w/ Diff (06/04/2024 10:17 AM EDT) Color, Body fluid Brown LAB HEMATOLOGY METHOD 06/04/2024 5:36 PM EDT [facility] Appearance, Body fluid Cloudy(A) LAB HEMATOLOGY METHOD 06/04/2024 5:36 PM EDT [facility] Volume, Body fluid 5.0 cc LAB HEMATOLOGY METHOD 06/04/2024 5:36 PM EDT [facility] Fluid Container Specimen received in miscellaneous container LAB HEMATOLOGY METHOD 06/04/2024 5:36 PM EDT [facility] Red Blood Cell Count, Body fluid LAB HEMATOLOGY METHOD 06/04/2024 5:36 PM EDT [facility] Comment:Unable to quantitate due to cell deterioration. Total Nucleated Cell Count, Body fluid LAB HEMATOLOGY METHOD 06/04/2024 5:36 PM EDT [facility] Comment:Unable to quantitate due to cell deterioration. Neutrophils %, Body fluid LAB HEMATOLOGY METHOD 06/04/2024 5:36 PM EDT [facility] Comment:Unable to quantitate due to cell deterioration. Lymphocytes %, Body fluid LAB HEMATOLOGY METHOD 06/04/2024 5:36 PM EDT [facility] Comment:Unable to quantitate due to cell deterioration. Monocytes/Macr ophages %, Body fluid LAB HEMATOLOGY METHOD 06/04/2024 5:36 PM EDT [facility] Comment:Unable to quantitate due to cell deterioration. Eosinophils %, Body fluid LAB HEMATOLOGY METHOD 06/04/2024 5:36 PM EDT [facility] Comment:Unable to quantitate due to cell deterioration. Lining/Mesothe lial Cells %, Body fluid LAB HEMATOLOGY METHOD 06/04/2024 5:36 PM EDT [facility] Comment:Unable to quantitate due to cell deterioration. Neutrophils Absolute (PMN), Body fluid LAB HEMATOLOGY METHOD 06/04/2024 5:36 PM EDT [facility] Comment:Unable to quantitate due to cell deterioration. Lymphocytes Absolute, Body fluid LAB HEMATOLOGY METHOD 06/04/2024 5:36 PM EDT [facility] Comment:Unable to quantitate due to cell deterioration. Monocytes/Macr ophages Absolute, Body fluid LAB HEMATOLOGY METHOD 06/04/2024 5:36 PM EDT [facility] Comment:Unable to quantitate due to cell deterioration. Eosinophils Absolute, Body fluid LAB HEMATOLOGY METHOD 06/04/2024 5:36 PM EDT [facility] Comment:Unable to quantitate due to cell deterioration. Basophils Absolute, Body fluid LAB HEMATOLOGY METHOD 06/04/2024 5:36 PM EDT [facility] Comment:Unable to quantitate due to cell deterioration. Lining/Mesothe lial Cells Absolute, Body fluid LAB HEMATOLOGY METHOD 06/04/2024 5:36 PM EDT [facility] Comment:Unable to quantitate due to cell deterioration. Basophils %, Body fluid LAB HEMATOLOGY METHOD 06/04/2024 5:36 PM EDT [facility] Comment:Unable to quantitate due to cell deterioration. Body Fluid Topography unknown / Unknown Non-blood Collection / Unknown 06/04/2024 10:17 AM EDT 06/04/2024 10:51 AM EDT Maite Austin MD LAB BODY FLUIDS AND STOOLS ORDERABLES NO SPECIMEN TYPE/SOURCE Final Result [facility] [address] [place] [address] * AFB Culture, Non Respiratory Source and Acid Fast Stain (06/04/2024 10:17 AM EDT) AFB Culture No Mycobacterial Growth at 6 Weeks 07/17/2024 11:29 AM EDT [facility] Acid Fast Stain No acid fast bacilli seen 07/17/2024 11:29 AM EDT [facility] Body Fluid Topography unknown / Unknown Non-blood Collection / Unknown 06/04/2024 10:17 AM EDT 06/04/2024 10:55 AM EDT us Maite Asutin MD LAB MICROBIOLOGY - GENERAL ORDE RABLES Final Result [facility] [address] [place] [address] * (ABNORMAL) Body Fluid Culture and Gram Stain (06/04/2024 10:17 AM EDT) Culture No growth at day 4 2024 7:41 AM EDT [facility] Gram Stain Result No intact cells seen(A) 06/07/2024 7:41 AM EDT [facility] Gram Stain Result No polymorphonuclear leukocytes seen(A) 06/07/2024 7:41 AM EDT [facility] Gram Stain Result No organisms seen(A) 06/07/2024 7:41 AM EDT [facility] Body Fluid Topography unknown / Unknown Non-blood Collection / Unknown 06/04/2024 10:17 AM EDT 06/04/2024 10:55 AM EDT us Maite Austin MD LAB MICROBIOLOGY - GENERAL ORDCaden MONK Final Result [facility] [address] [place] [address] * CT Guided Drain Placement Peritoneal or [...] the paracolic gutter presenting for drainage PHYSICIANS: foil stamp operator: CHRISTELLE ELMORE MD Secondary lithographic camera operator: None RAD DOSE: Total DLP 413 [...] the paracolic gutter presenting for drainage PHYSICIANS: foil stamp operator: CHRISTELLE ELMORE MD Secondary lithographic camera operator: None RAD DOSE: Total DLP 413 [...] well, and was transferred back to the [facility] in good condition. Approximately 10 cc [...] MD on 06/04/2024 12:43 PM Lorena Phillips COLLABORATING SUPERVISING PHYSICIAN IMG CT PROCEDURES Final Resu lt * (ABNORMAL) Renal Function Panel, Plasma (06/02/2024 1:02 AM EDT) Only the most recent of26 resultswithin the time period is included. Glucose, Plasma 507(HH) 74 - 99 mg/dL 06/02/2024 1:47 AM EDT [facility] BUN, Plasma 11 7 - 21 mg/dL 06/02/2024 1:47 AM EDT [facility] Creatinine, Plasma 0.60 0.60 - 1.10 mg/dL 06/02/2024 1:47 AM EDT [facility] BUN/Creatinine Ratio 18 06/02/2024 1:47 AM EDT [facility] Sodium, Plasma 125(L) 136 - 145 mmol/L 06/02/2024 1:47 AM EDT [facility] Potassium, Plasma 4.8 3.6 - 4.9 mmol/L 06/02/2024 1:47 AM EDT [facility] Chloride, Plasma 93(L) 97 - 107 mmol/L 06/02/2024 1:47 AM EDT [facility] CO2, Plasma 20(L) 22 - 29 mmol/L 06/02/2024 1:47 AM EDT [facility] Anion Gap 12 6 - 16 mmol/L 06/02/2024 1:47 AM EDT [facility] Total Calcium, Plasma 7.9(L) 8.9 - 10.2 mg/dL 06/02/2024 1:47 AM EDT [facility] Phosphorus, Plasma 5.8(H) 2.5 - 4.5 mg/dL 06/02/2024 1:47 AM EDT [facility] Albumin, Plasma 2.2(L) 3.5 - 5.2 g/dL 06/02/2024 1:47 AM EDT [facility] eGFRcr 106.8 mL/min/1.7 3m*2 06/02/2024 1:47 AM EDT [facility] Comment:Reported eGFRcr in m L/min/1.73m2 is based the CKD-EPI 2020 equation that does not use a race coefficient. Blood Venous blood specimen / Unknown Venipuncture / Unknown 06/02/2024 1:02 AM EDT 06/02/2024 1:16 AM EDT Lora Llanes COLLABORATING SUPERVISING PHYSICIAN LAB BLOOD ORDERABLES Final Result [facility] [address] [place] [address] * CT Abdomen Pelvis w IV Contrast [...] No acute bony abnormalities. Procedure Note Lorri oLpez MD - 06/01/2024 CLINICAL INDICATION: Abdominal pain, [...] LAB HEMATOLOGY METHOD 06/01/2024 9:01 AM EDT [facility] Blood Venous blood specimen / Unknown Venipuncture / Unknown 06/01/2024 8:42 AM EDT 06/01/2024 8:59 AM EDT us Shola Sheridan APRN LAB BLOOD ORDERABLES Final R esult [facility] [address] [place] [address] * MA NEGATIVE PRESSURE WOUND THERAPY DME >50 SQ [...] of11 resultswithin the time period is included. Pathologist [facility] Phosphorus, Plasma 4.1 2.5 - 4.5 mg/dL 05/29/2024 7:43 AM EDT [facility] Blood Venous blood specimen / Unknown Venipuncture / Unknown 05/29/2024 7:00 AM EDT 05/29/2024 7:06 AM EDT us Maite Austin MD LAB BLOOD ORDERABLES Final Resu lt [facility] [address] [place] [address] * Morphology (05/29/2024 5:35 AM EDT) Only the most recent of11 resultswithin the time period is included. Pathologist [facility] Polychromasia Slight LAB HEMATOLOGY METHOD 05/29/2024 8:34 AM EDT [facility] RBC Morphology Slide Reviewed LAB HEMATOLOGY METHOD 05/29/2024 8:34 AM EDT [facility] Platelet Estimate Platelet smear estimate consistent with automated count LAB HEMATOLOGY METHOD 05/29/2024 8:34 AM EDT [facility] Blood Blood sample taken from central line / Unknown Venipuncture / Unknown 05/29/2024 5:35 AM EDT 05/29/2024 5:56 AM EDT us Maite Austin MD LAB BLOOD ORDERABLES Final Resu lt [facility] [address] [place] [address] * (ABNORMAL) Manual Differential (05/29/2024 5:35 AM EDT) Only the most recent of11 resultswithin the time period is included. Blasts % 0 % LAB HEMATOLOGY METHOD 05/29/2024 8:34 AM EDT [facility] Promyelocytes % 0 % LAB HEMATOLOGY METHOD 05/29/2024 8:34 AM EDT [facility] Myelocytes % 4 % LAB HEMATOLOGY METHOD 05/29/2024 8:34 AM EDT [facility] Metamyelocytes % 5 % LAB HEMATOLOGY METHOD 05/29/2024 8:34 AM EDT [facility] Neutrophils % 82 % LAB HEMATOLOGY METHOD 05/29/2024 8:34 AM EDT [facility] Lymphocytes % 3 % LAB HEMATOLOGY METHOD 05/29/2024 8:34 AM EDT [facility] Reactive Lymphocytes % 1 % LAB HEMATOLOGY METHOD 05/29/2024 8:34 AM EDT [facility] Monocytes % 3 % LAB HEMATOLOGY METHOD 05/29/2024 8:34 AM EDT [facility] Eosinophils % 2 % LAB HEMATOLOGY METHOD 05/29/2024 8:34 AM EDT [facility] Basophils % 0 % LAB HEMATOLOGY METHOD 05/29/2024 8:34 AM EDT [facility] Blasts Absolute 0.00 10*3/UL LAB HEMATOLOGY METHOD 05/29/2024 8:34 AM EDT [facility] Promyelocytes Absolute 0.00 10*3/uL LAB HEMATOLOGY METHOD 05/29/2024 8:34 AM EDT [facility] Myelocytes Absolute 0.90 10*3/uL LAB HEMATOLOGY METHOD 05/29/2024 8:34 AM EDT [facility] Metamyelocytes Absolute 1.13 10*3/uL LAB HEMATOLOGY METHOD 05/29/2024 8:34 AM EDT [facility] Neutrophils Absolute 18.47(H) 1.60 - 6.10 10*3/uL LAB HEMATOLOGY METHOD 05/29/2024 8:34 AM EDT [facility] Lymphocytes Absolute 0.68(L) 1.20 - 3.90 10*3/uL LAB HEMATOLOGY METHOD 05/29/2024 8:34 AM EDT [facility] Reactive Lymphocytes Absolute 0.23 10*3/uL LAB HEMATOLOGY METHOD 05/29/2024 8:34 AM EDT [facility] Monocytes Absolute 0.68 0.30 - 0.90 10*3/uL LAB HEMATOLOGY METHOD 05/29/2024 8:34 AM EDT [facility] Eosinophils Absolute 0.45 0.00 - 0.50 10*3/uL LAB HEMATOLOGY METHOD 05/29/2024 8:34 AM EDT [facility] Basophils Absolute 0.00 0.00 - 0.10 10*3/uL LAB HEMATOLOGY METHOD 05/29/2024 8:34 AM EDT [facility] Blood Blood sample taken from central line / Unknown Venipuncture / Unknown 05/29/2024 5:35 AM EDT 05/29/2024 5:56 AM EDT us Maite Austin MD LAB BLOOD ORDERABLES Final Resu lt [facility] [address] [place] [address] * MA NEGATIVE PRESSURE WOUND THERAPY DME >50 SQ [...] IN CLINIC/BEDSIDE ORDERABLES Fi nal Result * MA CRITICAL CARE, ADDL 30 MIN (05/28/2024 11:39 [...] IN CLINIC/BEDSIDE ORDERABLES Fi nal Result * MA CRITICAL CARE, E/M 30-74 MINUTES (05/27/2024 11:12 [...] plan as documented. us Jose Martin Traylor IN CLINIC/BEDSIDE ORDERABLES F inal Result * Transfuse RBC (05/26/2024 6:44 PM EDT) Only the most recent of5 resultswithin the time period is included. us Maite Austin MD BLOOD TRANSFUSION ORDERABLES Fi nal Result * MA CRITICAL CARE, ADDL 30 MIN (05/26/2024 3:17 [...] BANK TEST ORDERABLES Final Result BLOOD BANK [address] [place] [address], * Prepare Leukocyte Reduced RBC: 1 Units (05/26/2024 2:21 PM EDT) Only the most recent of5 resultswithin the time period is included. Product Code [id number] CH BLOO D BANK Dispense Status Transfused BLOOD BANK Blood Expiration Date [id number] BLOOD BANK Unit Number [id number] CH B LOOD BANK Product Blood Type 7300 BLOOD BANK Blood Type B+ BLOOD BANK Crossmatch Compatible BLOOD BANK Other Maite Austin MD BLOOD BANK PRODUCT ORDERABLES F inal Result Performing Organization Address City/[facility] Co de Phone Number BLOOD BANK [address] [place] [address], * (ABNORMAL) Hemoglobin and Hematocrit, Blood (05/25/2024 8:32 PM EDT) Only the most recent of5 resultswithin the time period is included. HGB 7.2(L) 11.2 - 15.7 g/dL LAB HEMATOLOGY METHOD 05/25/2024 8:51 PM EDT [facility] HCT 23.1(L) 34.0 - 45.0 % LAB HEMATOLOGY METHOD 05/25/2024 8:51 PM EDT [facility] Blood Arterial blood specimen / Unknown Venipuncture / Unknown 05/25/2024 8:32 PM EDT 05/25/2024 8:45 PM EDT Lora K Rhineland COLLABORATING SUPERVISING PHYSICIAN LAB BLOOD ORDERABLES Final Result [facility] [address] [place] [address] * MA CRITICAL CARE, E/M 30-74 MINUTES (05/24/2024 11:04 [...] 7:54 PM EDT) Only the most recent of5 resultswithin the time period is included. pH, Arterial 7.29(L) 7.35 - 7.45 LAB HEMATOLOGY METHOD 05/23/2024 8:04 PM EDT [facility] pCO2, Arterial 44 35 - 48 mmHg LAB HEMATOLOGY METHOD 05/23/2024 8:04 PM EDT [facility] pO2, Arterial 182(H) 83 - 108 mmHg LAB HEMATOLOGY METHOD 05/23/2024 8:04 PM EDT [facility] SO2, Measured, Arterial 100(H) 94 - 98 % LAB HEMATOLOGY METHOD 05/23/2024 8:04 PM EDT [facility] Base Excess, Arterial -5.1(L) -2.0 - 3.0 mmol/L LAB HEMATOLOGY METHOD 05/23/2024 8:04 PM EDT [facility] Bicarbonate, Calculated, Arterial 21(L) 22 - 26 mmol/L LAB HEMATOLOGY METHOD 05/23/2024 8:04 PM EDT [facility] Hematocrit, Whole Blood 34.4 34.0 - 45.0 % LAB HEMATOLOGY METHOD 05/23/2024 8:04 PM EDT [facility] Sodium, Whole Blood 133(L) 136 - 145 mmol/L LAB HEMATOLOGY METHOD 05/23/2024 8:04 PM EDT [facility] Potassium, Whole Blood 5.0(H) 3.6 - 4.9 mmol/L LAB HEMATOLOGY METHOD 05/23/2024 8:04 PM EDT [facility] Chloride, Whole Blood 107 97 - 107 mmol/L LAB HEMATOLOGY METHOD 05/23/2024 8:04 PM EDT [facility] Glucose, Whole Blood 266(H) 74 - 99 mg/dL LAB HEMATOLOGY METHOD 05/23/2024 8:04 PM EDT [facility] Ionized Calcium, Whole Blood 4.2(L) 4.6 - 5.1 mg/dL LAB HEMATOLOGY METHOD 05/23/2024 8:04 PM EDT [facility] Lactate, Arterial, Whole Blood 2.0(H) 0.5 - 1.6 mmol/L LAB HEMATOLOGY METHOD 05/23/2024 8:04 PM EDT [facility] Blood Arterial blood specimen / Unknown Arterial Puncture / Unknown 05/23/2024 7:54 PM EDT 05/23/2024 8:02 PM EDT us Maite Austin MD LAB BLOOD ORDERABLES Final Resu lt [facility] [address] [place] [address] * Surgical Pathology Exam (05/23/2024 4:09 PM EDT) Case Report Surgical Pathology Case: [id number] Authorizing Provider: Lidia Troncoso MD Collected: 05/23/2024 1609 Ordering Location: [facility] Received: 05/24/2024 0757 Pathologist: Elvia Morgan MD Specimen: Other (specify site), Left Colon (fresh for permanent) 05/28/2024 11:11 AM T [facility] Final Diagnosis LARGE INTESTINE. 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 - INVOLVEMENT OF ONE RESECTION MARGIN. 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 05/28/2024 11:11 AM [facility] Gross Description A. LEFT [...] x 7.8 cm unremarkable mesentery is submitted. Claim Benefit Specialist sections are submitted as follows: A1: Resection [...] diagnosis or interpretation. 05/28/2024 11:11 AM EDT [facility] Tissue Topography unknown / Unknown 05/23/2024 4:09 PM EDT 05/24/2024 7:49 AM EDT Comment:Pre-op diagnosis: Colon perforation (CMS/HCC) [K63.1] us Lidia Troncoso MD LAB PATHOLOGY ORDERABLES Final Result [facility] [address] [place] [address] * PB ANESTHESIA NON-TIMED PROCEDURE PLACEHOLDER (05/23/2024 [...] tape. Seldinger technique used Staffing Performed: KERRIE TRAVEL ADMINISTRATOR: Mayda Bhatti CRNA Roslyn Villanueva MD ANESTHESIA ORDERABLES Final Re sult * Peripheral IV (05/23/2024 2:39 PM EDT) Mayda Vizcaino CRNA - 05/23/2024 2:39 PM EDT Mayda Bhatti CRNA 05/23/2024 2:40 PM Peripheral IV Inserted by: Mayda Bhatti CRNA Placement Needle size: 18 G Location: hand Site prep: alcohol Technique: anatomical landmarks Attempts: 1 us Roslyn Villanueva MD ANESTHESIA ORDERABLES Final Re sult * MA AN ELECTIVE ENDOTRACHEAL AIRWAY, PB ANESTHESIA PLACEHOLDER (05/23/2024 1:43 PM EDT) Mayda Vizcaino CRNA - 05/23/2024 1:43 PM EDT Mayda Bhatti CRNA 05/23/2024 2:13 PM Airway Date/Time: 05/23/2024 1:43 PM Reason: elective Airway not difficult General Information and Staff Patient location during procedure: OR TRAVEL ADMINISTRATOR: Mayda Bhatti CRNA Other anesthesia staff: Db [...] Comments Atraumatic. No change to dentition. us Roslyn Villanueva MD ANESTHESIA ORDERABLES Final Re sult * Protime-INR (05/23/2024 12:41 PM EDT) Only the most recent of2 resultswithin the time period is included. Prothrombin Time 13.6 12.0 - 14.3 sec LAB COAGULATION METHOD 05/23/2024 1:34 PM EDT [facility] INR 1.0 0.9 - 1.1 LAB COAGULATION METHOD 05/23/2024 1:34 PM EDT [facility] Blood Venous blood specimen / Unknown Venipuncture / Unknown 05/23/2024 12:41 PM EDT 05/23/2024 1:04 PM EDT Narrative [facility] - 05/23/2024 1:34 PM EDT OPTIMAL INR RANGES FOR PATIENT ON ORAL ANTICOAGULANT THERAPY Prevention of venous thromboembolism INR 2.0 to 3.0 In patients with heart disease: Atrial fibrillation INR 2.0 to 3.0 Valvular heart disease INR 2.0 to 3.0 Tissue heart valves INR 2.0 to 3.0 Mechanical prosthetic valves INR 2.5 to 3.5 Prevention of recurrent MN INR 2.5 to 3.5 us Maite Austin MD LAB BLOOD ORDERABLES Final Resu lt [facility] [address] [place] [address] * (ABNORMAL) Ionized calcium, whole blood (05/23/2024 11:40 AM EDT) Only the most recent of12 resultswithin the time period is included. Ionized Calcium, Whole Blood 4.3(L) 4.6 - 5.1 mg/dL LAB HEMATOLOGY METHOD 05/23/2024 11:48 AM EDT [facility] Blood Venous blood specimen / Unknown Venipuncture / Unknown 05/23/2024 11:40 AM EDT 05/23/2024 11:47 AM EDT us Reyna Obregon APRN LAB BLOOD ORDERABLES Namrata l Result Performing Organization Address City/[facility]/[place] [address] * Blood Culture (Aerobic/Anaerobet Set) (05/23/2024 10:20 AM EDT) Only the most recent of3 resultswithin the time period is included. Pathologist [facility] Culture No growth at day 5 ELI 05/28/2024 11:01 AM EDT [facility] Blood Venous blood specimen / Unknown Venipuncture / Unknown 05/23/2024 10:20 AM EDT 05/23/2024 10:28 AM EDT us Maite Austin MD LAB MICROBIOLOGY - [facility] Final Result Performing Organization Address City/[facility]/[place] [address] * CT Abdomen Pelvis wo IV Contrast [...] on 05/22/2024 6:08 PM us Reyna Obregon COLLABORATING SUPERVISING PHYSICIAN IMG CT PROCEDURES Final R esult * MA CRITICAL CARE, E/M 30-74 MINUTES (05/21/2024 11:41 [...] at day 1 05/22/2024 8:46 AM EDT [facility] Swab (Nares and Jacey Rectal) 05/21/2024 11:00 AM EDT 05/21/2024 11:55 AM EDT Tom Dyson MD LAB MICROBIOLOGY - GEN ERAL ORDERABLES Final Result [facility] [address] [place] [address] * MA CRITICAL CARE, E/M 30-74 MINUTES (05/20/2024 1:19 [...] - 63 U/L 05/20/2024 2:51 AM EDT [facility] Blood Venous blood specimen / Unknown Venipuncture / Unknown 05/20/2024 2:15 AM EDT 05/20/2024 2:21 AM EDT us Marybel Suarez APRN LAB BLOOD ORDERABLES Fin al Result [facility] [address] [place] [address] * MA CRITICAL CARE, E/M 30-74 MINUTES (05/19/2024 2:52 [...] 76 <150 mg/dL 05/19/2024 1:45 PM EDT [facility] Comment: Triglyceride Reference Range (age >17 years): Desirable: <150 mg/dL Borderline high: 150 to 199 mg/dL High: 200 to 499 mg/dL Very high: >499 mg/dL Increased risk of pancreatitis: >1000 mg/dL Fasting greater than or equal to 12 hours? Unknown 05/19/2024 1:45 PM EDT [facility] Blood Venous blood specimen / Unknown Venipuncture / Unknown 05/19/2024 11:42 AM EDT 05/19/2024 12:00 PM EDT us Maite Austin MD LAB BLOOD ORDERABLES Final Resu lt [facility] [address] [place] [address] * MA CRITICAL CARE, ADDL 30 MIN (05/19/2024 2:30 [...] Holt RN Authorized by: Maite Austin MD [place] Protocol: Verbal consent obtained?: Yes Written consent obtained?: Yes Risks and benefits: Risks, benefits and alternatives were discussed Consent given by: Patient and power of senior trial attorney (Written Consent obtained by madalyn VAT/PICC [...] Left Location (Adult): Basilic vein (Largest vein, cdmlgrbv-[id number]-cfec ratio 27%) Site selection rationale: RUE PIV and right radial arterial line. Patient position: Supine Catheter Lot #: [id number] Catheter nitrocellulose maker: [employer] PICC Provena Catheter placed: Double lumen [...] placed on end of each lumen hub. [place] limb precaution armband placed on left wrist for PICC precautions while PICC is in place (No sticks/BP's). VAT consult completed. us Maite Austin MD IV THERAPY ORDERABLES Edited Re sult - Final * Comprehensive GI Panel by PCR (05/18/2024 11:47 PM EDT) Campylobacter PCR Result Not Detected Not Detected 05/19/2024 1:41 PM EDT [facility] Plesiomonas shigelloides PCR Result Not Detected Not Detected 05/19/2024 1:41 PM EDT [facility] Salmonella PCR Result Not Detected Not Detected 05/19/2024 1:41 PM EDT [facility] Vibrio species PCR Result Not Detected Not Detected 05/19/2024 1:41 PM EDT [facility] Vibrio cholerae PCR Result Not Detected Not Detected 05/19/2024 1:41 PM EDT [facility] Yersinia enterocolitica PCR Result Not Detected Not Detected 05/19/2024 1:41 PM EDT [facility] Enteroaggregative E. coli (EAEC) PCR Result Not Detected Not Detected 05/19/2024 1:41 PM EDT [facility] Enteropathogenic E. coli (EPEC) PCR Result Not Detected Not Detected 05/19/2024 1:41 PM EDT [facility] Enterotoxigenic E. coli (ETEC) lt/st PCR Result Not Detected Not Detected 05/19/2024 1:41 PM EDT [facility] Shiga-like Toxin-Producing E.coli (STEC) stx1/stx2 PCR Resu Not Detected Not Detected 05/19/2024 1:41 PM EDT [facility] E coli 0157 PCR Result Not Detected Not Detected 05/19/2024 1:41 PM EDT [facility] Shigella/Enteroinvas alexsandra E. coli (EIEC) PCR Result Not Detected Not Detected 05/19/2024 1:41 PM EDT [facility] Cryptosporidium PCR Result Not Detected Not Detected 05/19/2024 1:41 PM EDT [facility] Cyclospora cayetanensis PCR Result Not Detected Not Detected 05/19/2024 1:41 PM EDT [facility] Entamoeba histolytica PCR Result Not Detected Not Detected 05/19/2024 1:41 PM EDT [facility] Giardia duodenalis (aka Giardia lamblia) PCR Result Not Detected Not Detected 05/19/2024 1:41 PM EDT [facility] Adenovirus F 40/41 PCR Result Not Detected Not Detected 05/19/2024 1:41 PM EDT [facility] Astrovirus PCR Result Not Detected Not Detected 05/19/2024 1:41 PM EDT [facility] Norovirus GI/GII PCR Result Not Detected Not Detected 05/19/2024 1:41 PM EDT [facility] Rotavirus A PCR Result Not Detected Not Detected 05/19/2024 1:41 PM EDT [facility] Sapovirus PCR Result Not Detected Not Detected 05/19/2024 1:41 PM EDT [facility] Stool Rectum structure / Unknown Non-blood Collection / Unknown 05/18/2024 11:47 PM EDT 05/19/2024 2:07 AM EDT Narrative [facility] - 05/19/2024 1:41 PM [...] MICROBIOLOGY - GENER AL ORDERABLES Final Result [facility] [address] [place] [address] * Clostridiodes (Clostridium) difficile PCR (05/18/2024 11:47 PM EDT) C difficile PCR toxin B gene DNA Result Not Detected Not Detected 05/19/2024 7:36 AM EDT [facility] Stool Rectum structure / Unknown Non-blood Collection / Unknown 05/18/2024 11:47 PM EDT 05/19/2024 2:07 AM EDT Narrative [facility] - 05/19/2024 7:36 AM [...] testing. Marybel Suarez APRN LAB MICROBIOLOGY - [facility] AL ORDERABLES Final Result [facility] [address] [place] [address] * MA CRITICAL CARE, E/M 30-74 MINUTES (05/18/2024 2:28 [...] - 36 U/L 05/18/2024 5:04 AM EDT [facility] Blood Arterial blood specimen / Unknown Venipuncture / Unknown 05/18/2024 4:00 AM EDT 05/18/2024 4:31 AM EDT us Edson Mcclure DO LAB BLOOD ORDERABLES Final R esult [facility] [address] [place] [address] * (ABNORMAL) Amylase, Plasma (05/18/2024 4:00 AM EDT) Amylase 129(H) 27 - 114 U/L 05/18/2024 5:04 AM EDT [facility] Blood Arterial blood specimen / Unknown Venipuncture / Unknown 05/18/2024 4:00 AM EDT 05/18/2024 4:31 AM EDT Edson Mcclure 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 LAB BLOOD ORDERABLES Final R esult [facility] [address] [place] [address] * (ABNORMAL) Hepatic function panel (05/18/2024 4:00 AM EDT) Only the most recent of4 resultswithin the time period is included. Conjugated Bilirubin, Plasma 0.6(H) <=0.3 mg/dL 05/18/2024 5:04 AM EDT [facility] Alkaline Phosphatase, Plasma 113(H) 35 - 104 U/L 05/18/2024 5:04 AM EDT [facility] Total Bilirubin, Plasma 1.1 0.2 - 1.1 mg/dL 05/18/2024 5:04 AM EDT [facility] Albumin, Plasma 2.1(L) 3.5 - 5.2 g/dL 05/18/2024 5:04 AM EDT [facility] Total Protein 5.5(L) 6.3 - 7.9 g/dL 05/18/2024 5:04 AM EDT [facility] ALT, Plasma 24 10 - 35 U/L 05/18/2024 5:04 AM EDT [facility] AST, Plasma 53(H) 10 - 35 U/L 05/18/2024 5:04 AM EDT [facility] Blood Arterial blood specimen / Unknown Venipuncture / Unknown 05/18/2024 4:00 AM EDT 05/18/2024 4:31 AM EDT Edson Mcclure DO LAB BLOOD ORDERABLES Final R esult [facility] [address] [place] [address] * CT Chest w IV Contrast (05/18/2024 [...] Total DLP (Dose-Length Product): 1602.32 mGy.cm (accession [id number]), 1602.32 mGy.cm (accession [id number]). Please note: The reported value represents the [...] Total DLP (Dose-Length Product): 1602.32 mGy.cm (accession [id number]),1602.32 mGy.cm (accession [id number]). Please note: The reported valuerepresents the total [...] Detected Not Detected 05/18/2024 12:[address] [facility] Swab Both anterior nares / Unknown Non-blood Collection / Unknown 05/17/2024 10:58 PM EDT 05/17/2024 11:21 PM EDT Narrative [facility] - 05/18/2024 12:44 AM [...] AL ORDERABLES Final Result Performing Organization Address City/[facility]/ZIP Co de Phone Number [facility] [address] [place] [address] * Fungal Blood Culture (05/17/2024 6:13 PM EDT) Culture No Fungal Growth at 6 Weeks 07/07/2024 11:[address] [facility] Blood Venous blood specimen / Unknown Venipuncture / Unknown 05/17/2024 6:13 PM EDT 05/17/2024 6:32 PM EDT us Lora Llanes APRN LAB MICROBIOLOGY - GENERAL ORDERABLES Final Result Performing Organization Address [facility] Co de Phone Number [facility] [address] [place] [address] * Beta Glucan (Fungitel), Serum (05/17/2024 6:13 PM EDT) Beta Glucan (Fungitell) 43 <80 pg/mL 05/19/2024 4:58 PM EDT [facility] (BEYUDY) Comment: Interpretation: The Fungitell assay does not detect certain fungal species such as the genus Cryptococcus (Rica et al. 1991) which produces very low levels of (1-3)-Lpfi-Y-Xfkykd. The assay also does not detect the Zygomycetes such as Absidia, Mucor and Rhizopus (Stacey et al. 1994) which are not known to produce (1-3)-Dhez-Q-Lvjnrs. In addition, the yeast phase of Blastomyces dermatitidis produces little (1-3)-Xpdu-U-Lqyrmz and may not be detected by the [...] characteristics for these modifications were determined by [employer] If sample result is greater than 500 pg/mL, physician may order a titer of the sample. Please contact [employer] if you would like to order a retest of this sample to obtain an actual value. Samples are held for 1 week after initial testing date. Testing Performed at: [facility] [address] [place] [address], [facility] [address] [place] [address] Compensation Vice President: Clayton Mata, PhD [place] ([place]) [place] # [id number] FLAG Interpretation: A = Abnormal, H = High, L = Low Blood Venous blood specimen / Unknown Venipuncture / Unknown 05/17/2024 6:13 PM EDT 05/17/2024 6:27 PM EDT Narrative KWABENA ColvinNAOMIYUDY) - 05/19/2024 4:58 PM EDT Release to patient in [facility]->Immediate us Lora Llanes APRN LAB BLOOD ORDERABLES Final Result PETTYCristina GUILLAUME) * AFB Blood Culture (05/17/2024 6:13 PM EDT) AFB Culture No Mycobacterial Growth at 6 Weeks 07/06/2024 5:16 PM EDT [facility] Blood Venous blood specimen / Unknown Venipuncture / Unknown 05/17/2024 6:13 PM EDT 05/17/2024 6:32 PM EDT us Lora Llanes APRN LAB MICROBIOLOGY - GENERAL ORDERABLES Final Result [facility] [address] [place] [address] * MA CRITICAL CARE, E/M 30-74 MINUTES (05/17/2024 4:40 [...] - 9.1 min 05/17/2024 3:56 PM EDT [facility] R, Heparinase 7.2 4.3 - 8.3 min 05/17/2024 3:56 PM EDT [facility] K 2.0 0.8 - 2.1 min 05/17/2024 3:56 PM EDT [facility] Angle 72.5 63.0 - 78.0 degrees 05/17/2024 3:56 PM EDT [facility] MA 72.2(H) 52.0 - 69.0 mm 05/17/2024 3:56 PM EDT [facility] MA, Rapid 74.4(H) 52.0 - 70.0 mm 05/17/2024 3:56 PM EDT [facility] MA, Fibrinogen 48.4(H) 15.0 - 32.0 mm 05/17/2024 3:56 PM EDT [facility] FLEV 883.2(H) 278.0 - 581.0 mg/dl 05/17/2024 3:56 PM EDT [facility] Blood Venous blood specimen / Unknown Venipuncture / Unknown 05/17/2024 3:08 PM EDT 05/17/2024 3:26 PM EDT us Maite Austin MD LAB BLOOD ORDERABLES Final Resu lt [facility] [address] [place] [address] * Influenza A,B & Respiratory Syncytial Virus by PCR (05/17/2024 3:08 PM EDT) Influenza A Virus PCR Result Not Detected Not Detected 05/18/2024 7:52 AM EDT [facility] Influenza B Virus PCR Result Not Detected Not Detected 05/18/2024 7:52 AM EDT [facility] Respiratory Syncytial Virus (RSV) PCR Result Not Detected Not Detected 05/18/2024 7:52 AM EDT [facility] Swab Nasopharyngeal structure / Unknown Non-blood Collection / Unknown 05/17/2024 3:08 PM EDT 05/17/2024 3:25 PM EDT us Dulce Alamo APRN LAB MICROBIOLOGY - GENERAL O RDERABLES Final Result Performing Organization Address [facility]/ZIP Co de Phone Number [facility] [address] [place] [address] * (ABNORMAL) APTT (05/17/2024 3:08 PM EDT) aPTT 41(H) 25 - 35 sec LAB COAGULATION METHOD 05/17/2024 4:06 PM EDT [facility] Blood Venous blood specimen / Unknown Venipuncture / Unknown 05/17/2024 3:08 PM EDT 05/17/2024 3:37 PM EDT aMite Austin MD LAB BLOOD ORDERABLES Final Resu lt Performing Organization Address [facility]/ZIP Co de Phone Number [facility] [address] [place] [address] * Anti Xa Level Unfractionated Heparin (05/17/2024 3:08 PM EDT) Anti Xa Level Unfractionated Heparin <0.11 <1.00 IU/mL LAB COAGULATION METHOD 05/17/2024 4:06 PM EDT [facility] Blood Venous blood specimen / Unknown Venipuncture / Unknown 05/17/2024 3:08 PM EDT 05/17/2024 3:37 PM EDT Narrative [facility] - 05/17/2024 4:06 PM EDT Therapeutic Range: UFH Full Dose and ACS/MN protocols*: 0.30 - 0.70 IU/mL UFH Low Dose protocol*: 0.25 - 0.50 IU/mL UFH prophylaxis: Not established us Maite Austin MD LAB BLOOD ORDERABLES Final Resu lt [facility] [address] [place] [address] * (ABNORMAL) C-reactive protein (05/17/2024 10:23 AM EDT) CRP, Plasma 225.3(H) <=8.0 mg/L 05/17/2024 2:08 PM EDT [facility] Blood Venous blood specimen / Unknown Venipuncture / Unknown 05/17/2024 10:23 AM EDT 05/17/2024 10:28 AM EDT Narrative [facility] - 05/17/2024 2:08 PM EDT This CRP test is appropriate for assessment of infection, systemic inflammation and/or tissue injury. To assess cardiovascular disease risk order high sensitivity CRP (CRPH). us Trinity Yousif APRN LAB BLOOD ORDERABLES Final Res ult Performing Organization Address City/[facility]/ZIP Co de Phone Number [facility] [address] [place] [address] * Potassium (05/16/2024 12:05 PM EDT) Potassium, Plasma 4.1 3.6 - 4.9 mmol/L 05/16/2024 2:03 PM EDT [facility] Blood Venous blood specimen / Unknown Venipuncture / Unknown 05/16/2024 12:05 PM EDT 05/16/2024 12:48 PM EDT us Uriah PHILLIP LAB BLOOD ORDERABLES Final Result Performing Organization Address City/[facility]/ZIP Co de Phone Number [facility] [address] [place] [address] * (ABNORMAL) Iron & Total Iron Binding Capacity, Plasma (Includes Transferrin) (05/14/2024 12:10 PM EDT) Iron, Plasma 25(L) 30 - 160 ug/dL 05/14/2024 1:01 PM EDT [facility] Transferrin, Plasma 125(L) 200 - 360 mg/dL 05/14/2024 1:01 PM EDT [facility] Total Iron Binding Capacity, Plasma 156(L) 240 - 450 ug/mL 05/14/2024 1:01 PM EDT [facility] Transferrin Saturation 16 14 - 50 % 05/14/2024 1:01 PM EDT [facility] Blood Venous blood specimen / Unknown Venipuncture / Unknown 05/14/2024 12:10 PM EDT 05/14/2024 12:22 PM EDT us Maite Austin MD LAB BLOOD ORDERABLES Final Resu lt Performing Organization Address City/[facility]/ZIP Co de Phone Number [facility] [address] [place] [address] * (ABNORMAL) Ferritin (05/14/2024 12:10 PM EDT) [facility] Ferritin, Serum 1,271(H) 13 - 150 ng/mL 05/14/2024 1:05 PM EDT [facility] Blood Venous blood specimen / Unknown Venipuncture / Unknown 05/14/2024 12:10 PM EDT 05/14/2024 12:22 PM EDT Maite Austin MD LAB BLOOD ORDERABLES Final Resu lt Performing Organization Address [facility]/ZIP Co de Phone Number [facility] [address] [place] [address] * SARS CoV-2/COVID-19 by PCR (05/13/2024 9:34 PM EDT) [facility] SARS CoV-2/COVID-1 9 RNA PCR Result Not Detected Not Detected 05/15/2024 7:05 AM EDT [facility] Swab Nasopharyngeal structure / Unknown Non-blood Collection / Unknown 05/13/2024 9:34 PM EDT 05/13/2024 10:34 PM EDT Narrative [facility] - 05/15/2024 7:05 AM [...] testing. This test was performed using the [employer] SARS CoV-2 assay, a PCR-based method. Negative [...] ORDE RABLES Final Result Performing Organization Address City/[facility]/ZIP Co de Phone Number [facility] [address] [place] [address] * Nasopharyngeal Respiratory Panel (05/13/2024 9:34 PM EDT) Nasopharyngeal Respiratory PCR Interpretation Not Detected for all analytes Not Detected for all analytes 05/14/2024 2:56 AM EDT [facility] Swab Nasopharyngeal structure / Unknown Non-blood Collection / Unknown 05/13/2024 9:34 PM EDT 05/13/2024 10:34 PM EDT Narrative [facility] - 05/14/2024 2:56 AM [...] Respiratory PCR Panel is performed using the [employer] instrument. This test is FDA approved for use with Nasopharyngeal swabs only. This test is used for clinical purposes. It should not be regarded as investigational or for research. The [facility] Clinical Microbiology Laboratory is certified under the Clinical Laboratory Improvement Amendments of 1988 (CLIA-88) as qualified to perform high complexity clinical laboratory testing. us Maite Austin MD LAB MICROBIOLOGY - GENERAL ORDCaden MONK Final Result Performing Organization Address City/[facility]/ZIP Co de Phone Number [facility] [address] [place] [address] * (ABNORMAL) POCT venous blood gas gem (05/09/2024 3:15 PM EDT) pH, Venous 7.42 7.32 - 7.43 05/09/2024 3:17 PM EDT [facility] pCO2, Venous 44 37 - 52 mm Hg 05/09/2024 3:17 PM EDT [facility] pO2, Venous <30 25 - 40 mm Hg 05/09/2024 3:17 PM EDT [facility] SO2, Venous 24(L) 65 - 80 % 05/09/2024 3:17 PM EDT [facility] Base Excess/Deficit, Venous 3.6(H) -2 - 3 mmol/L 05/09/2024 3:17 PM EDT [facility] HCO3, Venous 28.5(H) 22 - 26 mmol/L 05/09/2024 3:17 PM EDT [facility] Hemoglobin, Venous 9.7(L) 11.2 - 15.7 g/dL 05/09/2024 3:17 PM EDT [facility] Hematocrit, Venous 29.0(L) 34.0 - 45.0 % 05/09/2024 3:17 PM EDT [facility] Sodium, Venous 143 136 - 145 mmol/L 05/09/2024 3:17 PM EDT [facility] Potassium, Venous 4.1 3.6 - 4.9 mmol/L 05/09/2024 3:17 PM EDT [facility] POCT Chloride, Venous 107 97 - 107 mmol/L 05/09/2024 3:17 PM EDT [facility] Glucose, Venous 89 74 - 99 mg/dL 05/09/2024 3:17 PM EDT [facility] Ionized Calcium, Venous 4.4(L) 4.6 - 5.1 mg/dL 05/09/2024 3:17 PM EDT [facility] Lactate, Venous 3.3(H) 0.5 - 2.2 mmol/L 05/09/2024 3:17 PM EDT [facility] Body Temperature 37.0 Celsius 05/09/2024 3:17 PM EDT [facility] pH, Temp Corrected, Venous 7.42 7.32 - 7.43 05/09/2024 3:17 PM EDT [facility] pCO2, Temp Corrected, Venous 44 37 - 52 mm Hg 05/09/2024 3:17 PM EDT [facility] Cutter Helper ID Alka Corona 05/09/2024 3:17 PM EDT [facility] Acknowledged, Notified By RN 05/09/2024 3:17 PM EDT [facility] Critical Notify Time 1515 05/09/2024 3:17 PM EDT [facility] Critical Readback Y 05/09/2024 3:17 PM EDT [facility] Blood, Venous Whole blood specimen / Unknown 05/09/2024 3:15 PM EDT 05/09/2024 3:17 PM EDT us Maite Austin MD LAB POINT OF CARE TE ST DOCKED DEVICE UNSOLICITED RESULTS Final Result Performing Organization Address [facility] Co de Phone Number [facility] [address] [place] [address] * BETA HYDROXYBUTYRIC ACID (05/09/2024 11:30 AM EDT) Beta-Hydroxybut yric Acid, Plasma 0.1 <=0.27 mmol/L 05/09/2024 6:[address] [facility] [facility] Blood Venous blood specimen / Unknown Venipuncture / Unknown 05/09/2024 11:30 AM EDT 05/09/2024 12:34 PM EDT us Gregg Burdick MD LAB BLOOD ORDERABLES Final Resu lt Performing Organization Address [facility] Co de Phone Number [facility] [address] [place] [address] * MA CRITICAL CARE, ADDL 30 MIN (05/09/2024 11:17 [...] - 35 U/L 05/09/2024 1:31 PM EDT [facility] Blood Venous blood specimen / Unknown Venipuncture / Unknown 05/09/2024 12:52 AM EDT 05/09/2024 12:57 AM EDT Maite Austin MD LAB BLOOD ORDERABLES Final Resu lt [facility] [address] [place] [address] * (ABNORMAL) Alanine Aminotransferase, Plasma (05/09/2024 12:52 AM EDT) ALT, Plasma 84(H) 10 - 35 U/L 05/09/2024 1:31 PM EDT [facility] Blood Venous blood specimen / Unknown Venipuncture / Unknown 05/09/2024 12:52 AM EDT 05/09/2024 12:57 AM EDT us Maite uAstin MD LAB BLOOD ORDERABLES Final Resu lt [facility] [address] [place] [address] from Last 3 Months Insurance [facility] [employer] MEDICAID Advance Directives * Full Code (Latest [...] 12:06 PM 05/06/2024 8:27 PM 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
--- OUTSIDE RECORDS SUMMARY | 2024-08-09 18:16 | XMS_ITS | Encounter Summary ---
Author Organization Healthcare Address [address] [place] [address] Care Team Providers Care Chainstitch Pants Outseamer Name Role Phone Pcp, No Primary Care [...] any time in the past 12 m [facility], were you homeless or [...] Description 08/14/2024 8:20 AM EDT Office Visit [facility] General Surgery [address], 1st [place] [address] 10/30/2024 10:45 AM EDT Office Visit [facility] General Surgery [address], 1st [place] [address] Lidia Troncoso MD [address] [place] [address] documented as of this encounter [...] documented as of this encounter Care Teams Chainstitch Pants Outseamer Relationship Specialty Start Date End Date Pcp, [place] [address] PCP - General Family Medicine 04/04/24 06/28/24 documented as of this encounter
--- OUTSIDE RECORDS SUMMARY | 2024-08-09 18:16 | XMS_ITS | Patient Health Record ---
Author Organization [facility] Address [address] [place] [address] Care Team Providers Care Belt Repairer Name Role Phone Michaelle Rivas Primary Care Provider Champ Quiroz Unavailable [phone] Migration, Provider Unavailable Unavailable Allergies Allergen (clinical [...] Once a day; Duration: 30 days Active traZODone HCl 50 MG [...] once a day; Duration: 90 days Active Combivent Respimat 20-100 MCG/ACT [...] W/U Status Risk Notes Problem Primary insomnia (4317010) Primary insomnia (F51.01) Active confirmed Problem Psychophysiologic insomnia (704228878) Psychophysiologic insomnia (F51.04) Active confirmed Problem Essential tremor (915844956) Essential tremor (G25.0) Active confirmed Problem Panlobular emphysema (6230881) Panlobular emphysema (J43.1) Active confirmed Problem Left side sciatica (009809879668075) Sciatica, left side (M54.32) Active confirmed Problem Sciatica (84125516) Lumbago with sciatica, right side (M54.41) Active confirmed Problem Sciatica (61225126) Lumbago with sciatica, left side (M54.42) Active confirmed Problem Colostomy present (781475815) Colostomy status (Z93.3) Active confirmed Problem Mixed anxiety and depressive disorder (512303853) Depression with anxiety (F41.8) Active confirmed Problem Anxiety (00975600) Anxiety (F41.9) Active confi rmed Problem Vitamin B12 deficiency (non anemic) (25618042) B12 deficiency (E53.8) Active confirmed Problem Acute exacerbation of chronic obstructive airways disease (398693422) COPD exacerbation (J44.1) Active confirmed Problem Atherosclerosis of coronary artery without angina pectoris (125064405503898) Atherosclerosis of manzanita coronary artery of manzanita heart without angina pectoris (I25.10) Active confirmed Problem Disorder of skin AND/OR subcutaneous tissue (20958594) Skin lesions (L98.9) Active confirmed Vital Signs Heart Rate 100 /min 07/30/2024 Temperature 97.5 degrees Fahrenheit 07/30/2024 Blood pressure diastolic 90 mm Hg 07/30/2024 Height 5 ft 1 in in 07/30/2024 Blood pressure systolic 150 mm Hg 07/30/2024 Weight 116.4 lbs 07/30/2024 BMI 21.99 kg/m2 07/30/2024 Encounters Encounter Location Date Provider Diagnosis [facility] [address] [place], [place] [address] 05/19/2024 Provider Migration Depression with anxiety F41.8 and COPD exacerbation J44.1 [facility] [address] [address] 10/21/2023 Michaelle McNees Pain in joints of ri ght hand M25.541 and Pain in joints of left hand M25.542 [facility] [address] [address] 12/29/2023 Champjenniffer Quiroz Acute bronchitis, unspecified organism J20.9 ; Subacute cough R05.2 and Sciatica, left side M54.32 [facility] [address] [address] 04/20/2024 Michaelle McNees Depression with anxi ety F41.8 and COPD exacerbation J44.1 [facility] [address] [place] [address] 07/02/2024 Champ Besson Tremor R25.1 ; Atherosclerosis of manzanita coronary artery of manzanita heart without angina pectoris I25.10 ; Anxiety F41.9 ; Hospital discharge follow-up Z09 ; Dysuria R30.0 and Colostomy present Z93.3 [facility] [address] [place] [address] 07/18/2024 Champ Besson Pelvic pain in femal e R10.2 and Panlobular emphysema J43.1 [facility] [address] [place] [address] 07/30/2024 Champ Quiroz C. difficile colitis A04.72 ; Primary insomnia F51.01 ; Colostomy status Z93.3 and Hospital discharge follow-up Z09 [facility] [address] [place] [address] 08/09/2024 Michaelle McNees [facility] [address] [place] [address] 09/01/2023 Michaelle McNees [facility] [address] [place] [address] 09/02/2023 Michaelle McNees [facility] [address] [place] [address] 10/21/2023 Michaelle McNees [facility] [address] [place] [address] 11/28/2023 Michaelle McNees [facility] [address] [place] [address] 02/06/2024 Michaelle McNees [facility] [address] [place] [address] 04/20/2024 Michaelle McNees [facility] [address] [place] [address] 07/20/2024 Michaelle McNees Hypokalemia E87.6 [facility] [address] [place] [address] 07/20/2024 Michaelle McNees [facility] [address] [place] [address] 07/24/2024 Michaelle McNees Assessments Encounter Date Diagnosis [...] be helpful for her 07/02/2024 Atherosclerosis of manzanita coronary artery of manzanita heart without angina pectoris (ICD-10 - I25.10) Status post bypass. On appropriate medication 07/18/2024 Panlobular emphysema (ICD-10 - J43.1) Stable. Off cigarettes, continue inhalers. 07/18/2024 Pelvic pain in female (ICD-10 - R10.2) BUCKSHOT SWAGE OPERATOR evaluation. Possible ongoing problems from catheter but will have them take a look 07/20/2024 Hypokalemia (ICD-10 - E87.6) 07/30/2024 Primary insomnia (ICD-10 - F51.01) Trazodone low-dose for insomnia issues. Wellbutrin and citalopram have been helping with anxiety during the day. 10/21/2023 Pain in joints of right hand (ICD-10 - M25.541) Pain likely related to arthritis. Rest, warm epsom salt soaks, tylenol arthritis prn, prednisone and diclofenac gel as above 10/21/2023 Pain in joints of left hand (ICD-10 - M25.542) 07/30/2024 C. difficile colitis (ICD-10 - A04.72) Has finished up vancomycin from hospital discharge. Hard to tell if diarrhea is better because of colostomy status but has no pain, fever or abdominal swelling 07/02/2024 Anxiety (ICD-10 - F41.9) 12/29/2023 Sciatica, left side (ICD-10 - M54.32) Injection as noted. I think she would benefit from SI joint evaluation or even lumbar facet injections versus comprehensive pain care evaluation. This referral will be made 07/30/2024 Colostomy status (ICD-10 - Z93.3) Discussed that she would be a good candidate for reversal, they are meant to be some imaging done to make sure that her intestinal status is viable 07/02/2024 Hospital discharge follow-up (ICD-10 - Z09) Personally reviewed H&P and discharge summary as available from hospital discharge documentation. Reviewed pertinent labs and test done in the hospital. Personally reconciled medication. 07/30/2024 Hospital discharge follow-up (ICD-10 - Z09) [...] 12/31/2022 Physical Therapy Eval and Treat 10/29/19 Future Test Test Name Order Date BASIC METABOLIC PANEL (53224) 07/23/2024 MAGNESIUM (622) 07/23/2024 Next Appt Details Provider Name:Champ Quiroz, 08/20/2024 03:15:00 PM, [address], [place], [address], Insurance Providers Payer Name Payer Address Payer Phone Subscriber Number Group Number Insured Name Patient Relationship to Insured Coverage Start Date Coverage End Date [employer] MEDICAID [address] [address] [place] [address] [id number] Rere Reese Self - patient is the insured Medications Administered Medication Instructions Date of Administration Dosage Notes Cyanocobalamin/B-12 Pt's Own Medication 04/01/2022 1 mL Cyanocobalamin/B-12 Pt's Own Medication 12/24/2021 1 mL Cyanocobalamin/B-12 Pt's Own Medication 12/16/2021 1 mL Dexamethasone 4mg Injection 04/20/2024 4 mg Dexamethasone 4mg Injection 12/29/2023 4 mg Cyanocobalamin/B-12 Pt's Own Medication 01/06/2022 1 mL lot:[id number] exp: June 2023 Dexamethasone 4mg Injection 10/28/2022 4 mg TRIAMCINOLONE 03/15/2022 1 mL Medical (General) History Medical History History ICD Code hormone replacement therapy depression copd asthma smoker tremors Coronary artery disease, status post CAB G May [address] [facility] Sepsis, bowel ischemia and colostomy Mar at [facility] Surgical History Surgery Date(Month/Year) lt rotator cuff 2020 rt hand surgery 01/2023 colon resection 04/30/24 Hospitalization History Reason Date(Month/Year) Septic 07/24/2024 [facility] heart attach 04/30/2024-06/28/24 [facility] 01/2022
--- OUTSIDE RECORDS SUMMARY | 2024-08-09 18:16 | XMS_ITS | Encounter Summary ---
Author Organization Healthcare Address [address] [place] [address] Care Team Providers Care Bobbin Painter Name Role Phone Pcp, No Primary Care [...] any time in the past [address] [facility], were you homeless or living in a [...] Description 08/14/2024 8:20 AM EDT Office Visit [facility] General Surgery [address], [address]st [place] [address] 10/30/2024 10:45 AM EDT Office Visit [facility] General Surgery [address], 1st [place] [address] Lidia Troncoso MD [address] [place] [address] documented as of this encounter Goals Goal [...] documented as of this encounter Care Teams Bobbin Painter Relationship Specialty Start Date End Date Pcp, [place] [address] PCP - General Family Medicine 04/04/24 06/28/24 documented as of this encounter
--- OUTSIDE RECORDS SUMMARY | 2024-08-09 18:16 | XMS_ITS | Encounter Summary ---
Author Organization Healthcare Address [address] [place] [address] Care Team Providers Care Hat Cutter Name Role Phone Pcp, No Primary Care [...] 08/14/2024 8:20 AM EDT Office Visit [facility] General Surgery [address], 1st [place] [address] 10/30/2024 10:45 AM EDT Office Visit [facility] General Surgery [address], 1st [place] [address] Lidia Troncoso MD [address] [place] [address] documented as [...] documented as of this encounter Care Teams Hat Cutter Relationship Specialty Start Date End Date Pcp, [place] [address] PCP - General Family Medicine 04/04/24 06/28/24 documented as of this encounter
--- OUTSIDE RECORDS SUMMARY | 2024-08-09 18:16 | XMS_ITS | Encounter Summary ---
Author Organization Healthcare Address [address] [place] [address] Care Team Providers Care Spray Rig Operator Name Role Phone Pcp, No Primary [...] [facility] [address], [address]st [place] [address] 10/30/2024 10:45 AM EDT Office Visit [facility] General Surgery [address], [address]st [place] [address] Lidia Troncoso MD [address] [place] [address] documented as of this encounter Goals Goal [...] documented as of this encounter Care Teams Spray Rig Operator Relationship Specialty Start Date End Date Pcp, [place] [address] PCP - General Family Medicine 04/04/24 06/28/24 documented as of this encounter
--- OUTSIDE RECORDS SUMMARY | 2024-08-09 18:22 | XMS_ITS | Data Portability ---
Author Organization [facility] [place] Address [address] [place] [address] Assessment No assessment recorded. Plan of Treatment [...] Organization Details Recorded Time Shoulder Surgery completed [facility] 12/10/2021 16:40:07 section completed [facility] 12/10/2021 16:40:17 Imaging Results None [...] Updated DateTime 2 162.56 cm 23.5 kg/m2 71224.4 4 g 96.9 [degF] 97 % 97 % 85 /min 112 mm[Hg] 60 mm[Hg] Corinne Tang [facility] 13:30:57 Social History Question Answer Notes LastModified by Organizat ion Details LastModified Time Tobacco Smoking Status Current Every Day Smoker Corinne Tang [facility] 12/10/2021 16:39:59 How Much Tobacco Do You [...] SNOMED-CT Code Diagnosis ICD10 Code Diagnosis Note [id number] Juany Mathews MD [facility] [address] [facility],[place] [address] 12/14/2021 13:22:57 12/14/2021 15:21:02 Essential tremor 719131128 G25.0 tremor has been under relatively good control with combinatio n of primidone and Inderal, we will watch her hair loss closely, it may be related to her recent COVID infection but if it is related to Inderal in may need to consider gradually weaning this off. Periodic l eg movements of sleep [id number] G47.61 Periodic leg movements are under relatively [...] Doll Member ID Guarantor Name 09/03/2023 1 [facility] (MEDICAID REPLACEMENT - HMO) Rere Reese [id number] Rere Reese Notes Date Note Type Note [...] mg twice a day. Juany Mathews MD [address] [place] [address], [place], [address], [facility] 12/14/2021 15:11:09 OBGyn Episode No OBEpisode recorded.
--- OUTSIDE RECORDS SUMMARY | 2024-08-09 18:22 | XMS_ITS | Encounter Summary ---
Author Organization Healthcare Address [address] [place] [address] Care Team Providers Care Braille Transcriber Name Role Phone Pcp, No Primary Care Provider Champ Butler MD Primary Care Provider + [phone] Encounter Details Date Type Department Care Team (Late st Contact Info) Description 05/29/2024 Results Follow-Up Colorectal Surgery [address] [place] [address] Lidia Troncoso MD [address] [place] [address] Social History Tobacco Use Types Packs/Day Years [...] In the past 12 months has e [employer], [employer], oil, or water [employer] threatened to shut off services in your [...] -9 Score 1 06/29/2024 2:40 PM EDT Josephine Shawfer Dayana * Calculated C-SSRS Risk Score (Lifetime/Recent) Answer [...] people? Somewhat difficult 06/29/2024 2:40 PM EDT aMrva Shaw * Question Answer Date of Assessment [...] Description 08/14/2024 8:20 AM EDT Office Visit [facility] General Surgery [address], 1st [place] [address] 10/30/2024 10:45 AM EDT Office Visit [facility] General Surgery [address], [address]st [place] [address] Lidia Troncoso MD [address] [facility] [address] [place] [address] documented as of this encounter Goals Goal [...] documented as of this encounter Care Teams Braille Transcriber Relationship Specialty Start Date End Date Pcp, Katherine [address] [place] [address] PCP - General Family Medicine 04/04/24 06/28/24 Champ Quiroz MD [address] [facility] [address] [place] [address] PCP - General Internal Medicine 06/29/24 documented as of this encounter
--- OUTSIDE RECORDS SUMMARY | 2024-08-09 18:22 | XMS_ITS | Encounter Summary ---
Author Organization Healthcare Address [address] [place] [address] Care Team Providers Care Hospice Admitting Clerk Name Role Phone Champ Quiroz MD Primary Care Provider [phone] Encounter Details Date Type Department Care Team (Late st Contact Info) Description 08/07/2024 Orders Only External Location [address] [place] [address] Provider, External Social History Tobacco Use Types Packs/Day Years [...] Description 08/14/2024 8:20 AM EDT Office Visit [facility] General Surgery [address], 1st [place] [address] 10/30/2024 10:45 AM EDT Office Visit [facility] General Surgery [address], 1st [place] [address] Lidia Troncoso MD [address] [place] [address] documented as of this encounter [...] [facility] OUTSIDE IMAGES 08/07/2024 12:27 PM EDT documented in this encounter Results * CT [facility] OUTSIDE IMAGES (08/07/2024 12:27 PM EDT) Anatomical Region Laterality Modality Computed Tomogra phy 08/07/2024 12:2 7 PM EDT External Provider IMG CT PROCEDURES Final Result documented in this encounter Visit Diagnoses Not [...] documented as of this encounter Care Teams Hospice Admitting Clerk Relationship Specialty Start Date End Date Champ Quiroz MD [address] [place] [address] PCP - General Internal Medicine 06/29/24 documented as of this encounter
--- OUTSIDE RECORDS SUMMARY | 2024-08-09 18:22 | XMS_ITS | Encounter Summary ---
Author Organization Healthcare Address [address] [place] [address] Care Team Providers Care Chiropractic Practice Manager Name Role Phone Champ Quiroz MD Primary Care Provider [phone] Encounter Details Date Type Department Care Team (Late st Contact Info) Description 07/21/2024 Orders Only External Location [address] [place] [address] Sundeep Fisher MD [address] [place] [address] Social History Tobacco Use Types Packs/Day Years [...] any time in the past [facility], were you homeless or living in a assisted (including now)? No 05/02/2024 AUDIT-C Answer Date [...] the past 12 months has th e [employer], gas, oil, or water company threatened to [...] [facility] [address], 1st [place] [address] 10/30/2024 10:45 AM EDT Office Visit [facility] General Surgery [address], [address]st [place] [address] Lidia Troncoso MD [address] [place] [address] documented as of this encounter [...] Name Priority Date/Time Associated Diagnosis Comments CT ANGIO ABDOMEN PELVIS 07/21/2024 7:18 PM EDT documented in this encounter Results * CT Angio Abdomen Pelvis (07/21/2024 7:18 PM EDT) Anatomical Region Laterality Modality Abdomen, Pelvis Computed Tomogra phy 07/21/2024 7:18 PM EDT us Sundeep Fisher MD IMG CT PROCEDURES Final Result documented in [...] documented as of this encounter Care Teams Chiropractic Practice Manager Relationship Specialty Start Date End Date Champ Quiroz MD [address] [place] [address] PCP - General Internal Medicine 06/29/24 documented as of this encounter
[2024-08-09 18:25] LABS: Red Blood Count 4.17 M/mm3 (4.20-5.40); White Blood Count 16.6 K/mm3 (4.8-10.8)
[2024-08-09 18:26] LABS: Basophils # 0.2 K/mm3 (0-0.2); Eosinophils # 0.2 Kmm3 (0.0-0.4); Eosinophils % 1.5 % (0.1-12.0); Hematocrit 38.1 % (37.0-47.0); Immature Granulocytes # 0.08 10^3uL; Immature Granulocytes % 0.5 %; Lymphocytes # 5.2 K/mm3 (0.7-4.5); Lymphocytes % 31.4 % (10-50); Mean Corpuscular HGB Conc 31.2 g/dL (31.8-35.4); Mean Corpuscular Hemoglobin 28.5 pg (27.0-31.2); Mean Corpuscular Volume 91.4 fl (81-99); Monocytes % 6.2 % (1.7-9.3); Neutrophils # 9.8 K/mm3 (1.8-7.8); Neutrophils % 59.4 % (37.0-80.0); Nucleated Red Blood Cells # 0 10^3/uL; Nucleated Red Blood Cells % 0 %; Platelet Count 583 K/mm3 (142-424); Red Cell Distribution Width 14.6 % (11.5-17.5); Red Cell Distribution Width-SD 49.2 fL
[2024-08-09 18:31] LABS: MANUAL DIFFERENTIAL MANUAL DIFFERENTIAL (MANUAL DIFF)
[2024-08-09 18:39] LABS: Albumin Level 3.7 g/dl (3.5-5.0); Chloride 97 mmol/L (98-107); INR 0.97 (0.9-1.1); Potassium 4.3 mmoL/L (3.5-5.1); Prothrombin Time 10.8 seconds (10.1-12.5); Sodium 137 mmol/L (136-145)
[2024-08-09] MEDS: HYDROMORPHONE 2MG/ML SYRINGE 1 MG IV (18:39)
[2024-08-09] MEDS: LACTATED RINGERS 1000ML 1,000 ML 999 ML IV (18:40)
[2024-08-09] MEDS: ONDANSETRON 4MG/2ML VIAL 4 MG IV (18:40)
[2024-08-09 18:41] LABS: Blood Urea Nitrogen 13 mg/dl (7-17)
[2024-08-09 18:42] LABS: Alanine Aminotransferase 52 U/L (12-78); Albumin/Globulin Ratio 1.1 (1.1-1.8); Alkaline Phosphatase 218 U/L (38-126); Anion Gap 13.3 mEq/L (5-15); Aspartate Amino Transferase 71 U/L (14-36); Calcium 8.4 mg/dl (8.4-10.2); Carbon Dioxide 31 mmol/L (22.0-30.0); Creatinine Clearance Estimated 65 mL/min (50-200); Estimated Glomerular Filt Rate 75 ml/min (>60); GFR (African American) 90 ML/MIN (>60); Globulin 3.5 g/dL (1.3-3.2); Glucose 119 mg/dl (74-100); Lipase 131 U/L (23-300); Total Protein,Serum 7.2 g/dl (6.3-8.2)
[2024-08-09 18:47] LABS: Lactic Acid 2.1 mmol/L (0.7-2.1)
--- NOTE | 2024-08-09 18:47 | CT_ITS ---
PROCEDURE INFORMATION: Exam: CT Abdomen And Pelvis With Contrast Exam date and time: 08/09/2024 7:35 PM Age: 53 years old Clinical indication: Other: Severe pelvic pain after recent hemicolectomy TECHNIQUE: Imaging protocol: Computed tomography of the abdomen and pelvis with contrast. Radiation optimization: All CT scans at this facility use at least one of these dose optimization techniques: automated exposure control; mA and/or kV adjustment per patient size (includes targeted exams where dose is matched to clinical indication); or iterative reconstruction. Contrast material: ISOVUE; Contrast volume: 75 ml; Contrast route: IV; COMPARISON: CT ABDOMEN PELVIS WO CON 08/07/2024 5:35 PM FINDINGS: Pleural spaces: Tiny left pleural effusion. Liver: Normal. No mass. Gallbladder and biliary ducts: Stable mild biliary ductal dilatation likely reflecting post cholecystectomy changes. Pancreas: Normal. No ductal dilation. Spleen: Normal. No splenomegaly. Adrenal glands: Normal. No mass. Kidneys and ureters: Normal. No hydronephrosis. Stomach and bowel: Stable right lower quadrant ostomy. Persistent, diffuse long segment distal and terminal ileal wall thickening and mucosal enhancement with pericolonic fat stranding and fluid collection. Mild pericystic fat stranding without colonic wall thickening. Nonobstructive pattern. Appendix: No evidence of appendicitis. Intraperitoneal space: Unremarkable. No free air. No significant fluid collection. Vasculature: Atherosclerotic calcification of aortoiliac arteries without aneurysm. Ostial atherosclerotic calcification of celiac, superior mesenteric, renal arteries. Lymph nodes: Unremarkable. No enlarged lymph nodes. Urinary bladder: Unremarkable as visualized. Reproductive: Unremarkable as visualized. Bones/joints: Unremarkable. No acute fracture. Soft tissues: Unremarkable. IMPRESSION: 1. Persistent, acute distal and terminal ileitis with reactive pelvic free fluid collection. 2. Likely reactive cystitis
[2024-08-09 18:48] LABS: Bilirubin,Total 0.1 mg/dl (0.2-1.3)
--- NOTE | 2024-08-09 18:48 | HMH.EDGENADL ---
Discharge Plan Disposition Patient Disposition: Home, Self-Care Condition: Good Prescriptions Prescriptions: New prednisone 20 mg tablet 40 mg PO DAILY 5 Days Qty: 10 0RF oxycodone 5 mg tablet 5 mg PO Q8H PRN (Reason: pain) Qty: 12 0RF ondansetron 4 mg tablet,disintegrating 4 mg PO Q8H PRN (Reason: nausea and vomiting) 4 Days Qty: 12 0RF No Action trazodone 50 mg Tablet 50 mg PO HSP PRN (Reason: Insomnia) potassium chloride 20 mEq tablet,ER particles/crystals 40 meq PO DAILY Patient Comments: TAKE 2 TABLETS BY MOUTH ONCE DAILY DO NOT CRUSH OR CHEW vancomycin [Firvanq] 50 mg/mL Recon Soln 125 mg PO QID 8 Days Qty: 80 0RF amoxicillin-pot clavulanate [Augmentin] 500-125 mg tablet 1 tab PO TID 5 Days Qty: 15 0RF primidone 50 mg tablet 50 mg PO BID Patient Comments: TAKE 1 TABLET BY MOUTH TWICE DAILY FOR 90 DAYS citalopram 40 mg tablet 40 mg PO DAILY hydroxyzine HCl 10 mg tablet 10 mg PO Q8HP PRN (Reason: Anxiety) Patient Comments: TAKE 1 TABLET BY MOUTH EVERY 8 HOURS NEEDED FOR 15 DAYS bupropion HCl 300 mg tablet extended release 24 hr 300 mg PO DAILY Patient Comments: TAKE 1 TABLET BY MOUTH EVERY 24 HOURS aspirin 81 mg tablet,chewable 81 mg PO DAILY rosuvastatin 40 mg tablet 40 mg PO HS metoprolol tartrate 25 mg tablet 37.5 mg PO BID Patient Comments: TAKE 1 & 1/2 (ONE & ONE-HALF) TABLETS BY MOUTH TWICE DAILY Referrals Follow up/Referrals: Champ Quiroz MD [Primary Care Provider, Internal Medicine] - See instructions Activity Restrictions/Add. Instructions Additional Instructions/Restrictions: You were evaluated in the emergency department today. At this time, your workup is stable as we discussed. Please follow-up closely with your colorectal and general surgeon right away. I recommend calling them and letting them know that you were seen here in the emergency department. epic cupid analyst your prescriptions and take them as prescribed. Return either here or to the emergency department for new or worsening symptoms. Clinical Impressions Clinical Impression: Ileitis, Abdominal pain Instructions Patient Instructions: DI for Acute Abdominal Pain, DI for Ileitis Print Language Print Language: Indonesian Discharge ED Provider: Millie Ambrose General Adult HPI General Chief complaint: Abdominal Pain Stated complaint: Lower abdominal pain Time Seen by Provider: 08/09/24 18:06 Mode of Arrival: Wheelchair Source of Information: Patient Description of Symptoms (Recalled from ER Triage Doc. by RN): patient states she was discharged today around 230 and immediatley began having lower abdominal pain that is stabbing. denies nausea vomitting diarrhea History of Present Illness HPI narrative: This patient is a 53-year-old female with a history of MT with recent CABG complicated by ileus with perforation requiring left colectomy back in April with recurrent ED evaluations over the last several weeks for significant abdominal pain in the setting of pouchitis/ileitis presenting to the emergency department for again abdominal pain. Patient was recently admitted for pouchitis and gastroenteritis noted on imaging and significant abdominal/pelvic pain. She was discharged home 3 hours prior to arrival in improved condition with improving white blood cell count and reassuring exam. She states since going home, the pain became more severe than it ever has been, and she states she is never experienced any like this before. She has just having lower abdominal pain that is stabbing. She denies any nausea, vomiting, or changes in her ostomy output. She also denies any fevers. Related Data Home Medications ?Medication ?Instructions ?Recorded ?Confirmed citalopram 40 mg tablet 40 mg PO DAILY 12/23/23 08/07/24 primidone 50 mg tablet 50 mg PO BID 12/23/23 08/07/24 bupropion HCl 300 mg 24 hr tablet, 300 mg PO DAILY 05/01/24 08/07/24 extended release hydroxyzine HCl 10 mg tablet 10 mg PO Q8HP PRN Anxiety 05/01/24 08/07/24 aspirin 81 mg chewable tablet 81 mg PO DAILY 07/21/24 08/07/24 metoprolol tartrate 25 mg tablet 37.5 mg PO BID 07/21/24 08/07/24 rosuvastatin 40 mg tablet 40 mg PO HS 07/21/24 08/07/24 trazodone 50 mg tablet 50 mg PO HSP PRN Insomnia 08/07/24 08/08/24 potassium chloride 20 mEq 40 meq PO DAILY 08/08/24 08/08/24 tablet,extended release(part/cryst) Previous Rx's ?Medication ?Instructions ?Recorded amoxicillin 500 mg-potassium 1 tab PO TID 5 days #15 tabs 08/09/24 clavulanate 125 mg tablet (Augmentin) ondansetron 4 mg disintegrating 4 mg PO Q8H PRN nausea and 08/09/24 tablet vomiting 4 days #12 tabs oxycodone 5 mg tablet 5 mg PO Q8H PRN pain #12 tabs 08/09/24 prednisone 20 mg tablet 40 mg (2 x 20 mg) PO DAILY 5 days 08/09/24 #10 tabs vancomycin 50 mg/mL oral solution 125 mg (2.5 mL) PO QID 8 days #80 08/09/24 (Firvanq) mL Allergies Allergy/AdvReac Type Severity Reaction Status Date / Time oxycodone (From Percocet) AdvReac Vomiting Verified 07/21/24 18:47 PFSH PFS Disclaimer: The information contained in this section may have been updated after the patient was seen, as this information can be updated by other users. Medical History Colostomy in place Heart attack Depression Anxiety History of pleurisy Hemorrhoid Essential tremor Endometriosis Surgical History History of hand surgery History of Hx of cholecystectomy H/O rotator cuff surgery History of hysterectomy Family History Other Essential tremor Family history of heart disease Social History Smoking Status: Never smoker alcohol intake: never substance use type: denies use current occupational status: unemployed and retired Travel in the last 8 weeks?: Inside the [place] household members: family housing: house caffeine: Yes Have you lived/traveled outside US in past 30 days?: No Contact w/someone who lives/traveled outside US past 30 days?: No Exposure to someone with infectious disease in past 14 days?: No Do you have a fever (greater than 100.4 F or 38 C)?: No Have you tested positive for COVID-19?: No Exposed to someone with COVID-19 in past 14 days?: No Do you have a sore throat?: No Do you have a cough?: No Do you have any weakness?: No Do you have any diarrhea?: No Are you experiencing any unusual bleeding?: No Do you have any muscle aches/pain?: No Do you have any abdominal pain?: Yes Are you experiencing loss of taste or smell?: No Other Medical History Have you received the Flu Vaccine for this season: No Have you received the Pneumonia Vaccine: No ROS Obtained: Yes All systems reviewed & no additional complaints except as documented Physical Exam General General appearance: alert Comment: Uncomfortable appearing, tearful Head Head exam: atraumatic and normocephalic Eye Eye exam: Present normal appearance, PERRL and EOMI ENT ENT exam: Present normal exam, normal oropharynx, mucous membranes moist and normal external ear exam Neck Neck exam: Present normal inspection, full ROM and trachea midline; Absent tenderness Chest Chest inspection: Present normal inspection and symmetric chest wall rise; Absent tenderness Respiratory Respiratory exam: Present normal lung sounds bilaterally; Absent respiratory distress, wheezes, stridor or accessory muscle use Cardiovascular Cardiovascular exam: Present regular rate and normal rhythm Abdominal Exam Abdominal exam: Present tenderness (Lower abdomen) and guarding; Absent distention, rebound or rigidity Comment: Ostomy in place with good output Extremities Exam Extremities exam: Present normal inspection, full ROM and normal capillary refill; Absent tenderness or edema Back Exam Back exam: Present normal inspection and full ROM; Absent tenderness Neurological Exam Neurological exam: Present alert, oriented X3, CN II-XII intact and normal gait; Absent motor sensory deficit Psychiatric Psychiatric exam: Present anxious Skin Skin exam: Present warm and dry Medical Decision Making Medical Records Medical records reviewed: Yes I reviewed the patient's medical records. Screening: Per USPSTF and CDC recommendations, given the prevalence of disease in our region, it is our hospital?s policy to screen for HIV and viral Hepatitis for all patients aged 18 and over and those with ongoing risk factors. Supa Inquiry Pt receiving controlled substance: No Vital Signs: 08/09/24 18:08 08/09/24 18:10 08/09/24 18:11 Temperature 98.3 F Temperature Source Oral Pulse Rate 93 H 86 Pulse Rate [Right Radial] 96 H Respiratory Rate 15 Blood Pressure 161/141 H 195/95 H Blood Pressure [Right Arm] 195/95 H Blood Pressure Mean 147 139 Blood Pressure Mean [Right Arm] 128 Blood Pressure Source [Right Arm] Automatic Cuff Blood Pressure Position Blood Pressure Position [Right Arm] Supine 02 Sat by Pulse Oximetry 97 97 98 Oxygen Delivery Method Room Air 08/09/24 19:21 08/09/24 19:29 08/09/24 20:30 Temperature Temperature Source Pulse Rate 78 83 Pulse Rate [Right Radial] Respiratory Rate Blood Pressure 145/82 H 119/69 115/71 Blood Pressure [Right Arm] Blood Pressure Mean 91 Blood Pressure Mean [Right Arm] Blood Pressure Source [Right Arm] Blood Pressure Position Blood Pressure Position [Right Arm] 02 Sat by Pulse Oximetry 95 95 Oxygen Delivery Method Room Air 08/09/24 21:00 08/09/24 21:10 08/09/24 23:31 Temperature 98.1 F Temperature Source Oral Pulse Rate 83 79 77 Pulse Rate [Right Radial] Respiratory Rate 18 Blood Pressure 86/64 L 115/62 124/67 Blood Pressure [Right Arm] Blood Pressure Mean Blood Pressure Mean [Right Arm] Blood Pressure Source [Right Arm] Blood Pressure Position Sitting Blood Pressure Position [Right Arm] 02 Sat by Pulse Oximetry 96 96 Oxygen Delivery Method Room Air Lab Data Lab results reviewed: Yes I reviewed the patient's lab results. Lab Results 08/09/24 18:11: Urine Color Yellow, Urine Appearance Clear, Urine pH 6.5, Ur Specific [place] <= 1.005, Urine Protein Negative, Urine Glucose (UA) Negative, Urine Ketones Negative, Urine Blood Negative, Urine Nitrate Negative, Urine Bilirubin Negative, Urine Urobilinogen 0.2, Ur Leukocyte Esterase Negative, Urine WBC Occasional, Ur Squamous Epith Cells Occasional, Urine Bacteria Trace 08/09/24 18:18: WBC 16.6 H D, RBC 4.17 L, Hgb 11.9 L D, Hct 38.1, MCV 91.4, MCH 28.5, MCHC 31.2 L, RDW 14.6, Plt Count 583 H, MPV 9.0, Neut % (Auto) 59.4, Lymph % (Auto) 31.4, [place] % (Auto) 6.2, Eos % (Auto) 1.5, Baso % (Auto) 1.0, Neut # (Auto) 9.8 H, Lymph # (Auto) 5.2 H, Donley # (Auto) 1.0, Eos # (Auto) 0.2, Baso # (Auto) 0.2, Total Counted 100, Neutrophils % (Manual) 62, Lymphocytes % (Manual) 31, Monocytes % (Manual) 5, Eosinophils % (Manual) 2, Platelet Estimate Slight increase, RBC Morphology Not Reportable, Hypochromasia 1+, Poikilocytosis 1+, Anisocytosis 1+, Microcytosis 1+, Macrocytosis 1+, Target Cells 1+, Tear Drop Cells 1+, PT 10.8, INR 0.97, Sodium 137, Potassium 4.3, Chloride 97 L, Carbon Dioxide 31 H, Anion Gap 13.3, BUN 13, Creatinine 0.80, Estimated Creat Clear 65, Estimated GFR 75, Est GFR ( Amer) 90, Glucose 119 H D, Lactate 2.1, Calcium 8.4, Total Bilirubin 0.1 L, AST 71 H, ALT 52 D, Alkaline Phosphatase 218 H, Total Protein 7.2 D, Albumin 3.7 D, Globulin 3.5 H, Albumin/Globulin Ratio 1.1, Lipase 131 08/09/24 18:18 08/09/24 18:18 Orders (Tests/Meds): ED MEDICATIONS Discontinued Medications Generic Name Dose Route Start Last Admin Trade Name Esperanza PRN Reason Stop Dose Admin Hydrocodone Bitart/Acetaminophen 1 tab 08/09/24 22:15 08/09/24 22:40 Hydrocodone/Apap 5/325 Mg Tablet PO 08/09/24 22:16 1 tab ONCE ONE Administration Hydromorphone HCl 1 mg 08/09/24 18:23 08/09/24 18:39 Hydromorphone 2mg/Ml Syringe IV 08/09/24 18:24 1 mg ONCE ONE Administration Lactated Ringer's 1,000 mls @ 999 mls/hr 08/09/24 18:23 08/09/24 18:40 Lactated Ringer's 1000 Ml Bag IV 08/09/24 19:23 999 mls/hr .Q1H1M ONE Administration Iopamidol 75 ml 08/09/24 19:35 08/09/24 19:35 Iopamidol-370 (76%);100ml Bottle IV 08/09/24 19:36 75 ml ONCE ONE Administration Methylprednisolone Sodium Succinate 125 mg 08/09/24 22:23 08/09/24 22:40 Methylprednisolone Sod Succ 125mg Vial IV 08/09/24 22:24 125 mg ONCE ONE Administration Ondansetron HCl 4 mg 08/09/24 18:23 08/09/24 18:40 Ondansetron 4mg/2ml Vial IV 08/09/24 18:24 4 mg ONCE ONE Administration Sodium Chloride 10 ml 08/09/24 19:35 08/09/24 19:35 Sodium Chloride 0.9% 10ml Syr (Rad Only) IV 08/09/24 19:36 10 ml ONCE ONE Administration ORDERS Category Date Time Status CT abdomen pelvis w con Stat Cat Scan 08/09/24 18:47 Completed Complete Blood Count Auto Diff Stat Lab 08/09/24 18:18 Completed Comprehensive Metabolic Panel Stat Lab 08/09/24 18:18 Completed INR [Prothrombin Time INR] Stat Lab 08/09/24 18:18 Completed Lactic Acid Stat Lab 08/09/24 18:18 Completed Lipase Stat Lab 08/09/24 18:18 Completed UA [Urinalysis and Microscopic] Stat Lab 08/09/24 18:11 Completed Medical Decision Narrative: In summary, this patient is a 53-year-old female presenting to the Emergency Department for evaluation of severe pelvic pain. Differential diagnoses considered include but are not limited to worsening ileitis, intestinal perforation, colitis, bowel obstruction, functional abdominal pain. Ruling out the most morbid conditions drove assessment. It should be noted patient's history includes CAD status post CABG, C. difficile colitis, tobacco use, perforated ileus requiring colectomy with ostomy in place which may or may not be at goal therapy. This complicates all aspects of care by increasing patient's risk for morbidity. I reviewed patient's past medical records and noted prior admission at for this ileus with ostomy creation after colectomy as well as her prior admission here with her just being discharged earlier today with diagnosis of ileitis. On exam, the patient is uncomfortable and anxious appearing. Vitals are reassuring on cardiac telemetry. Abdominal exam demonstrates pain out of proportion to exam. Workup included CBC, CMP, lipase, lactic acid, urinalysis, CT abdomen and pelvis with IV contrast. I independently interpreted the scan prior to the radiologist read and noted significant interval change from prior CT scan with continued pelvic free fluid and ileitis. Please see their read for final interpretation. Labs were obtained that demonstrated leukocytosis, which has been persistent. Slightly worsened since discharge, but she is afebrile and nontoxic with reassuring vitals. This could be in response to pain. Hemoglobin is stable to slightly increased. Chemistry is nonactionable with nothing acute. Urinalysis is not concerning for infection. On reassessment, patient had good improvement after administration of IV Dilaudid and Zofran as well as a bolus of IV fluids. She was feeling a lot better but states that she is worried the pain will come back if she goes home. I had interactive discussions with Dr. Young, Dr. Pollock, and Dr. Pereyra and the transfer center all with the transfer center, colorectal surgery, and Blue surgery. They advised there is nothing acute that the patient would require transfer for surgical evaluation for, and they recommended conservative management with pain control and continued antibiotics. She is already on Augmentin. I had an interactive discussion with the hospitalist Dr. Barth who advised that he felt the patient would likely benefit from discharge home with pain control, as he did not send her with anything and thinks that this might simply be a pain control issue. Given that her pain is not controlled after IV pain medication, I do feel this is reasonable. She was given oral [place] for further symptomatic improvement, which she tolerated well. She requests steroids as she states that she feels it helped her more than anything. After shared decision making and discussing risk versus benefit, she was given IV methylprednisolone here. I did prescribe her oral prednisone, [place], and Zofran for further symptomatic improvement. Given that her symptoms are well-controlled, exam is stable and reassuring, and workup is stable, I feel she is appropriate for discharge home with close outpatient follow-up with colorectal and general surgery as already planned. She was given very strict return precautions and will come back if she starts feeling worse again.. Critical Care Critical Care Time Critical Care Time: Yes Attestation: On 08/09/24, the high probability of a clinically significant, sudden or life threatening deterioration of the following system(s) required my full and direct attention, intervention and personal management. The time I documented below is in addition to time spent performing reported procedures but includes the following listed in this critical care notation. Total Time Total Critical Care Time: 35
[2024-08-09 19:12] LABS: Eosinophils % 2 % (0-3); Lymphocytes % 31 % (10-50); Monocytes % 5 % (2-9); Neutrophils % 62 % (42-76); Platelet Estimate Slight Increase; Poikilocytosis 1+; Total Cells Counted 100
[2024-08-09 19:13] LABS: Hypochromasia 1+
[2024-08-09 19:14] LABS: Anisocytosis 1+; Microcytosis 1+
[2024-08-09 19:16] LABS: Macrocytosis 1+; Target Cells 1+; Tear Drop Cells 1+
[2024-08-09 19:18] LABS: Hemoglobin 11.9 g/dL (12.2-16.2)
[2024-08-09] MEDS: SODIUM CHLORIDE 0.9% 10ML SYR (RAD ONLY) 10 ML IV (19:35)
[2024-08-09] MEDS: IOPAMIDOL-370 (76%);100ML BOTTLE 75 ML IV (19:35)
[2024-08-09 20:55] LABS: Microscopic, Urine URINE MICROSCOPIC (MICROSCOPIC)
[2024-08-09 20:57] LABS: Appearance,Urine CLEAR (Clear); Bilirubin,Urine Negative (Negative); Blood, Urine Negative (Negative); Color,Urine YELLOW (Yellow); Glucose,Urine (UA) Negative (Negative); Ketones,Urine Negative (Negative); Leukocyte Esterase,Urine Negative (Negative); Nitrate,Urine Negative (Negative); PH,Urine 6.5 (5.0-8.5); Protein,Urine Negative (Negative); Specific Gravity, Urine <= 1.005 (1.005-1.030); Urobilinogen,Urine 0.2 EU/dl (0.2)
--- NOTE | 2024-08-09 20:58 | PC.NURSE ---
[facility] has been called regarding possible transfer. Waiting for call back.
[2024-08-09 21:22] LABS: Bacteria,Urine Trace /lpf; Squamous Epithelial Cell,Urine Occasional #/hpf (0-5); WBC,Urine Occasional #/hpf (0-3)
[2024-08-09] MEDS: METHYLPREDNISOLONE SOD SUCC 125MG VIAL 125 MG IV (22:40)
[2024-08-09] MEDS: HYDROCODONE/APAP 5/325 MG TABLET 1 TAB PO (22:40)
== END 2024-08-09 23:38 | disposition home or self-care (01) ==
PROVIDERS: Emergency Provider Emergency Medicine; PCP Internal Medicine Adolescent Medicine
DX: K50.019 Crohn's disease of small intestine with unspecified complications (principal); R10.30 Lower abdominal pain, unspecified; F41.9 Anxiety disorder, unspecified; I21.4 Non-ST elevation (NSTEMI) myocardial infarction
CPT/HCPCS: 74177; 80053; 81001; 83605; 83690; 85007; 85025; 85027; 85610; 96361; 96374; 96375; 99291; J1171; J2405; J2919; J7120; Q9967

== ENCOUNTER 2024-08-21 14:32 | Emergency (ER) | payer MEDICAID, SELFPAY ==
--- OUTSIDE RECORDS SUMMARY | 2024-06-29 14:30 | XMS_ITS | Encounter Summary ---
Author Organization Healthcare Address [address] [place] [address] Care Team Providers Care Entry Examiner Name Role Phone Champ Quiroz MD Primary Care Provider + [phone] Reason for Visit * Reason Comments Follow-up Staple removal Encounter Details Date Type Department Care Team (Late st Contact Info) Description 06/29/2024 2:30 PM EDT Office Visit [place] [facility] [address], [address] [place] [address] Lidia Troncoso MD [address] [place] [address] Social History Tobacco Use Types [...] any time in the past 12 m [facility], were you homeless or living in [...] Description 10/30/2024 10:45 AM EDT Office Visit [place] [facility] [address] [place] [address] Lidia Troncoso MD [address] [place] [address] documented as of this encounter [...] documented as of this encounter Care Teams Entry Examiner Relationship Specialty Start Date End Date Champ Quiroz MD [address] [place] [address] PCP - General Internal Medicine 06/29/24 documented as of this encounter
--- OUTSIDE RECORDS SUMMARY | 2024-07-18 09:52 | XMS_ITS | Encounter Summary ---
Author Organization Healthcare Address [address] [place] [address] Care Team Providers Care Product Development Scientist Name Role Phone Champ Quiroz MD Primary Care Provider [phone] Encounter Details Date Type Department Care Team (Latest Contact Info) Description 07/18/2024 9:52 AM EDT - 07/18/2024 11:59 PM EDT [facility] [address], [address] [place] [address] CAD, multiple vessel Discharge Disposition: Home or [...] any time in the past 12 m [facility], were you homeless or living in a longterm (including now)? No 05/02/2024 AUDIT-C Answer Date [...] 1 tablet (10 mg) by mouth daily. naloxone (Narcan) 4 mg/0.1 mL nasal spray 1. Give 1 spray in nostril for no/slow breathing or cannot wake after opioid use 2. Call 911 3. Repeat in other nostril if symptoms continue 1 each 06/21/2024 potassium chloride CR (Klor-Con M20) 20 MEQ ER tablet Take 2 tablets by mouth daily. Do not crush or chew. 60 tablet 07/18/2024 primidone (Mysoline) 50 MG tablet Take 1 tablet (50 mg) by mouth every 12 (twelve) hours. rosuvastatin (Crestor) 40 MG tablet Take 1 tablet by mouth nightly. 30 tablet 2 06/21/2024 simethicone (Mylicon) 80 MG chewable tablet Chew 1.5 tablets 4 times a day. 30 tablet 06/21/2024 metoprolol tartrate (Lopressor) 25 MG tablet Take 1 tablet by mouth 2 times a day. 60 tablet 2 06/21/2024 metoprolol tartrate (Lopressor) 25 MG tablet Take 1.5 tablets by mouth 2 times a day. 90 tablet 1 07/18/2024 documented as of this encounter Plan of Treatment Upcoming Encounters Date Type Department Care Team (Late st Contact Info) Description 10/30/2024 10:45 AM EDT Office Visit [facility] General Surgery [address], [address] [place] [address] Lidia Troncoso MD [address] [place] [address] documented as of this encounter [...] as of this encounter Care Teams Product Development Scientist Relationship Specialty Start Date End Date Champ Quiroz MD [address] [place] [address] PCP - General Internal Medicine 06/29/24 documented as of this encounter
--- OUTSIDE RECORDS SUMMARY | 2024-07-18 11:00 | XMS_ITS | Encounter Summary ---
Author Organization Healthcare Address [address] [place] [address] Care Team Providers Care Trucking Manager Name Role Phone Champ Quiroz MD Primary Care Provider [phone] Reason for Referral * Consultation (Routine) - Authorized Specialty Diagnoses / Procedures Referred By Contac t Referred To Contact Gynecology Diagnoses CAD, multiple vessel Tobacco use Anxiety and depression Chronic obstructive pulmonary disease, unspecified COPD type ([facility]) NSTEMI (non-ST elevated myocardial infarction) ([facility]) THOM (obstructive sleep apnea) S/P CABG x 4 Post-op pain Maite Austin MD [address] [address] Phone: tel: fax: Referral ID Status Reason Start Date Expiration Date Visits Requested Visits Authorized [id number] Authorized Specialty Services Required 07/18/2024 01/17/2026 1 1 Encounter Details Date Type Department Care Team (Late st Contact Info) Description 07/18/2024 11:00 AM EDT Office Visit OR Clinic Cardiothoracic [address], [address] [address] Maite Austin MD [address] [address] CAD, multiple vessel (Primary Dx); Tobacco use; Anxiety and depression; Chronic obstructive pulmonary disease, unspecified COPD type ([facility]); NSTEMI (non-ST elevated myocardial infarction) ([facility]); THOM (obstructive sleep apnea); S/P CABG x [...] in a penitentiary (including now)? No 05/02/2024 AUDIT-C Answer Date [...] Recorded In the past 12 months has [employer], gas, oil, or water [employer] threatened to shut off services in your [...] rate daily at home Follow up with mounter clarinets (Dr. Bentley) and PCP Follow up with general surgery Recommend cardiac rehab Referral to gynecology for vaginal soreness Continue sternal precautions until 3 months from surgery Follow up as needed with CT surgery [1] Patient Active Problem List Diagnosis Anxiety and depression COPD (chronic obstructive pulmonary disease) ([facility]) Tobacco use CAD, multiple vessel NSTEMI (non-ST elevated myocardial infarction) ([facility]/HCC) GERD (gastroesophageal reflux disease) Leukocytosis Essential tremor Thrombocytosis Hypocalcemia Hyperlipidemia THOM (obstructive sleep apnea) S/P CABG x 4 Hypertension Post-op pain Hyponatremia Hypomagnesemia Transaminitis Sinus tachycardia Incomplete RBBB Tremor Hypertriglyceridemia Hypoalphalipoproteinemia S/P colostomy ([facility]) S/P colon resection BMI 22.0-22.9, adult [2] Past Medical History: Diagnosis Date Anxiety COPD (chronic obstructive pulmonary disease) ([facility]) 05/01/2024 Continue Duo nebs q6 SPO2 goal >88% Depression GERD (gastroesophageal reflux disease) 05/01/2024 Continue Protonix 40 mg daily Hyperkalemia 05/06/2024 Now resolved, pt with hypokalemia requiring replacement On mechanically assisted ventilation ([facility]) 05/06/2024 Arrived to ICU intubated 05/[facility]/08 resolved Tobacco use 05/01/2024 Youth Program Director for smoking 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 Complicates all [...] 3:49 PM EDT Associated attestation - Maite Ausitn MD - 07/19/2024 3:49 PM EDT I [...] Description 10/30/2024 10:45 AM EDT Office Visit [facility] General Surgery [address], [address] [place] [address] Lidia Troncoso MD [address] [place] [address] Scheduled Referrals Name Type Priority Associated Diagnoses Orde r Schedule Ambulatory referral to Gynecology Outpatient Referral Routine CAD, multiple vessel Tobacco use Anxiety and depression Chronic obstructive pulmonary disease, unspecified COPD type (CMS/HCC) NSTEMI (non-ST elevated myocardial infarction) ([facility]) THOM (obstructive sleep apnea) S/P CABG x [...] ECG Atrial Rate 109 BPM MUSE ECG CA Interval 120 ms MUSE ECG QRSD Interval 70 ms MUSE ECG QT Interval 394 ms MUSE ECG QTC Interval 530 ms MUSE ECG P [place] 77 degrees MUSE ECG R [place] 79 degrees MUSE ECG T Wave [place] 100 degrees MUSE ECG Diagnosis Sinus tachycardia MUSE ECG Diagnosis Nonspecific ST and T wave abnormality MUSE ECG Diagnosis MUSE ECG Diagnosis MUSE ECG Diagnosis MUSE ECG Diagnosis Confirmed by Yahaira Gomez ([id number]) on 07/18/2024 9:29:04 PM MUSE ECG 07/18/2024 11:2 2 AM EDT 07/18/2024 9:29 PM EDT us Maite Austin MD ECG ORDERABLES Final Result Performing Organization Address [facility]/ZIP Co de Phone Number MUSE ECG * (ABNORMAL) Basic Metabolic Panel, Plasma (07/18/2024 10:14 AM EDT) Glucose, Plasma 126(H) 74 - 99 mg/dL 07/18/2024 12:[address] [facility] BUN, Plasma 5(L) 7 - 21 mg/dL 07/18/2024 12:[address] [facility] Creatinine, Plasma 0.54(L) 0.60 - 1.10 mg/dL 07/18/2024 12:[address] [facility] BUN/Creatinine Ratio 9 07/18/2024 12:[address] [facility] Sodium, Plasma 137 136 - 145 mmol/L 07/18/2024 12:[address] [facility] Potassium, Plasma 2.5(LL) 3.6 - 4.9 mmol/L 07/18/2024 12:[address] [facility] Chloride, Plasma 95(L) 97 - 107 mmol/L 07/18/2024 12:[address] [facility] CO2, Plasma 29 22 - 29 mmol/L 07/18/2024 12:[address] [facility] Anion Gap 13 6 - 16 mmol/L 07/18/2024 12:[address] [facility] Total Calcium, Plasma 8.2(L) 8.9 - 10.2 mg/dL 07/18/2024 12:[address] [facility] eGFRcr 109.6 mL/min/1.7 3m*2 07/18/2024 12:[address] [facility] Comment:Reported eGFRcr in m L/min/1.73m2 is based the CKD-EPI 2020 equation that does not use a race coefficient. Blood Venous blood specimen / Unknown Venipuncture / Unknown 07/18/2024 10:14 AM EDT 07/18/2024 10:14 AM EDT us Maite Austin MD LAB BLOOD ORDERABLES Final Resu lt [facility] [address] [place] [address] * (ABNORMAL) CBC W/O Differential (07/18/2024 10:14 AM EDT) WBC Count 13.01(H) 3.70 - 10.30 10*3/uL LAB HEMATOLOGY METHOD 07/18/2024 11:[address] [facility] RBC Count 3.97 3.90 - 5.20 10*6/uL LAB HEMATOLOGY METHOD 07/18/2024 11:[address] [facility] HGB 11.5 11.2 - 15.7 g/dL LAB HEMATOLOGY METHOD 07/18/2024 11:[address] [facility] HCT 35.5 34.0 - 45.0 % LAB HEMATOLOGY METHOD 07/18/2024 11:[address] [facility] Platelet Count 582(H) 155 - 369 10*3/uL LAB HEMATOLOGY METHOD 07/18/2024 11:[address] [facility] MCV 89 79 - 98 fL LAB HEMATOLOGY METHOD 07/18/2024 11:[address] [facility] MCH 29.0 26.0 - 32.0 pg LAB HEMATOLOGY METHOD 07/18/2024 11:[address] [facility] MCHC 32.4 30.7 - 35.5 g/dL LAB HEMATOLOGY METHOD 07/18/2024 11:[address] [facility] RDW 14.9(H) 11.5 - 14.5 % LAB HEMATOLOGY METHOD 07/18/2024 11:[address] [facility] MPV 9.1 8.8 - 12.5 fL LAB HEMATOLOGY METHOD 07/18/2024 11:[address] [facility] nRBC 0.0 <=0.0 per 100 WBCs LAB HEMATOLOGY METHOD 07/18/2024 11:[address] [facility] Blood Venous blood specimen / Unknown Venipuncture / Unknown 07/18/2024 10:14 AM EDT 07/18/2024 10:14 AM EDT us Maite Austin MD LAB BLOOD ORDERABLES Final Resu lt [facility] [address] [place] [address] * XR Chest 2 Views (07/18/2024 9:58 [...] COMMUNICATION: Per this written report Drafted by Chapm Oden MD on 07/18/2024 10:01 AM Final [...] documented as of this encounter Care Teams Trucking Manager Relationship Specialty Start Date End Date Champ Quiroz MD [address] [place] [address] [place] [id number] PCP - General Internal Medicine 06/29/24 documented as of this encounter
--- OUTSIDE RECORDS SUMMARY | 2024-07-30 07:00 | XMS_ITS ---
Author Organization [facility] Address [address] [facility] [address] [facility] [address] [place] [address] Care Team Providers Care Ios Programmer Name Role Phone Michaelle Rivas Primary Care Provider Champ Quiroz [phone] REASON FOR VISIT [facility] D/C 07/24/2024 Encounters Encounter Location Date Provider Diagnosis [place] [facility] [address] [place] [address] [facility] [address] [place] [address] 07/30/2024 Champ Quiroz Plan Of Treatment Next Appt Details Provider Name:Champ Quiroz, 10/01/2024 03:15:00 PM, [address] [facility] [address] [facility], [address], [place], [address], Progress Notes * Rere REESE ADOB: [birth year] (53 yo F)Acc No.[id number]:07/30/2024 HOSP F/U Patient: Dayana Rere CASIANO Provider: Dayana Quiroz MD :1970 A ge:53 Y S ex:Female Date:07/30/2024 Address:[address] [place] [address] [id number] Pcp:Michaelle Rivas Subjective: * Chief Complaints: * 1 . [facility] D/C 07/24/2024. * Medical History: Objective: * Vitals: Assessment: Plan: * Treatment: * * Electronic signature of Step jenniffer Quiroz MD FAAP on 08/21/2024 at 10:10 AM EDT Sign off status: Pending * Provider: Dayana Quiroz MD Date: 0 07/30/2024 Generated for Little catalan/Fior/Jericho on: 0 08/21/2024 10:10 AM EDT
--- OUTSIDE RECORDS SUMMARY | 2024-07-30 12:15 | XMS_ITS ---
Author Organization [facility] Address [address] [place] [address] Care Team Providers Care Solution Director Name Role Phone Michaelle Rivas Primary Care Provider [phone] Champ Quiroz Unavailable [phone] Allergies Allergen (clinical drug ingredient) Drug/Non Drug Allergy documented on EMR Reaction Allergy Type Onset Date Status LATEX GLOVES (uncoded) Unknown Allergy Active acetaminophen / oxycodone Percocet stomach upset, sweating Drug Allergy Active REASON FOR VISIT [facility] D/C 07/24/2024 Medications Medication SIG (Take, Route, Frequency, Duration) Notes Start Date End Date Status Rosuvastatin Calcium 40 MG 1 tablet Oral ly Once a day; Duration: 30 days Active hydrOXYzine HCl 10 MG 1 tab orally every 8 hours; Duration: 30 days Active Pyridium 200 MG 1 tablet after meals Orally Three times a day; Duration: 2 days 07/02/2024 Active buPROPion HCl ER (XL) 300 MG 1 tab(s) or ally every 24 hours; Duration: 30 days 04/20/2024 Active Citalopram Hydrobromide 40 MG 1 tab(s) orally once a day; Duration: 90 days Active Aspirin 81 81 MG 1 tablet Orally Once a day Active Flonase Allergy Relief 50 MCG/ACT 1 spray in each nostril Nasally Twice a day Active Combivent Respimat 20-100 MCG/ACT INHALE 1 PUFF BY MOUTH 4 TIMES DAILY; Duration: 30 days prn Active Primidone 50 MG 1 tab(s) orally twic e a day; Duration: 90 days Active Acetaminophen 500 MG 2 tablet as needed Orally every 6 hrs Active Loratadine 10 MG 1 tablet Orally Once a day Active Metoprolol Tartrate 25 MG 1 tablet Orall y Twice a day Active traZODone HCl 50 MG 1 tablet at bedtime as needed Orally Once a day; Duration: 30 days 07/30/2024 Active Simethicone 80 MG [...] Problem Status W/U Status Risk Notes Problem Primary insomnia (4249695) Primary insomnia (F51.01) Active confirmed Problem Colostomy status (Z93.3) Active confirmed Vital Signs Temperature 97.5 degrees Fahrenheit 07/31/19 25 Blood pressure systolic 150 mm Hg 07/31/19 25 Blood pressure diastolic 90 mm Hg 025 Heart Rate 100 /min 07/30/2024 Height 5 ft 1 in in 07/30/2024 Weight 116.4 lbs 07/30/2024 BMI 21.99 kg/m2 07/30/2024 Encounters Encounter Location Date Provider Diagnosis [facility] [place] [address] [facility] [address] [place] [address] 07/30/2024 Champ Quiroz C. difficile colitis A04.72 [...] at bedtime as needed Orally Once a day; Duration: 30 days 07/30/2024 Treatment Notes Assessment Notes [...] Follow Up: prn, Reason: Provider Name:Champ Quiroz, 10/01/2024 03:15:00 PM, [address] [place] [facility] [address] [facility], [address], [place], [address], Progress Notes * Rere REESE ADOB: [birth year] (53 yo F)Acc No.[id number]:07/30/2024 HOSP F/U Patient: Dayana Rere CASIANO Provider: Dayana Quiroz MD :1970 A ge:53 Y S ex:Female Date:07/30/2024 Address:[address] [place] [address] [id number] Pcp:Michaelle Rivas Subjective: * Chief Complaints: * 1 . [facility] D/C 07/24/2024. * HPI: I ntrim [...] posthospital visit from above dates. Admitted to [facility] on 07/21/2024 with possible pouchitis -initially treated with IV antibiotics but found to have C. difficile and transitioned over to vancomycin. Diarrhea improved and she was discharged home with pbetty Prescott and follow-up with our office. No evidence of pouchitis was found on further imaging and [facility] GI did not think patient needed further intervention from her colostomy status recently at . * Medical History: H ormone replacement therapy, Depression, Copd, Asthma, Smoker, Tremors, Coronary artery disease, status post CABG May [address] [facility], Sepsis, bowel ischemia and colostomy April/[address] [facility]. * Surgical History: l t rotator cuff [...] active: no. Travel outside [place]: no. 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 * Medications: T aking Simethicone 80 [...] 7 DAY DISCH, Modifiers: 25 , 1111F DSCHR MED/CURENT MED MERGE * Follow Up: p rn * * Sign off status: Completed true * Provider: Dayana Quiroz MD Date: 0 07/30/2024 Generated for Little catalan/Fior/eTransmitting on: 0 08/21/2024 02:39 PM EDT History and Physical Notes * HPI (History of Present Illness) Category Sub-Category Detail Notes Category Not es [place] History Transition of care visit from hospital Date of admission to hospital:: 07/21/2024 Patient here for posthospital visit from above dates. Admitted to [facility] on 07/21/2024 with possible pouchitis -initially treated with IV antibiotics but found to have C. difficile and transitioned over to vancomycin. Diarrhea improved and she was discharged home with p.o. Vanco and follow-up with our office. No evidence of pouchitis was found on further imaging and [facility] GI did not think patient needed further [...] Chest: CABG scar sternotomy scar well-healed General Pleasant and Coopera edna NAD on RA,
--- OUTSIDE RECORDS SUMMARY | 2024-07-31 09:00 | XMS_ITS | Encounter Summary ---
Author Organization Healthcare Address [address] [place] [address] Care Team Providers Care Safety Belt Installer Name Role Phone Champ Quiroz MD Primary Care Provider [phone] Reason for Visit * Reason Comments Post-op * Consultation (Routine) - Closed Specialty Diagnoses / Procedures Referred By Contac t Referred To Contact Diagnoses S/P colon resection Trinity Yousif S, HEAD REFRIGERATING ENGINEER [address] [facility] [address] [place] [address] Phone: tel: fax: Lidia Troncoso MD [address] [address] Phone: tel: fax: Referral ID Status Reason Start Date Expiration Date V isits Requested Visits Authorized [id number] Closed Specialty Services Required 06/21/2024 12/21/2025 1 1 Encounter Details Date Type Department Care Team (Late st Contact Info) Description 07/31/2024 9:00 AM EDT [facility] [address] [place] [address] Lidia Troncoso MD [phone] [place] [phone] S/P colostomy (CMS/HCC) (Primary Dx); S/P colon resection Social History Tobacco Use Types Packs/Day Years [...] any time in the past 12 m [facility], were you homeless or living in a fpc (including now)? No 05/02/2024 AUDIT-C Answer Date [...] the past 12 months has th e [employer], gas, oil, or water [employer] threatened to shut off services in your [...] Sign Reading Time Taken Comments Blood Pressure 126/78 07/31/2024 9:11 AM EDT Pulse 73 07/31/2024 9:11 AM EDT Temperature 36.6 C (97.8 F) 07/31/2024 9:11 AM EDT Respiratory Rate 16 07/31/2024 9:11 AM EDT Oxygen Saturation 99% 07/31/2024 9:11 AM EDT Inhaled Oxygen Concentration - - Weight 53.7 kg (118 lb 4.8 oz) 07/31/2024 9:11 A M EDT Height 152.4 cm (5') 07/31/2024 9:11 AM EDT Body Mass Index 23.1 07/31/2024 9:11 AM EDT documented in this encounter Miscellaneous Notes * Progress Notes - Ghanshyam Cid MD - 07/31/2024 9:00 AM EDT Chief Complaint Patient presents with Post-op HPI: Ms. Rere Reese is a 53 y.o. female who recently underwent CABG with Dr. Austin on 05/06/24 complicated by colonic ischemia requiring exploratory laparotomy (Bartolome) with intraoperative assistance from Dr. Troncoso. She ultimately underwent a left hemicolectomy and sigmoidectomy with end transverse colostomy on 05/23/24, and she is being seen today for post-operative follow-up and discussion of reversal. Ms. Reese now reports adequate bowel function, no ostomy prolapse, well-healing incisions, andadequate functional status. She is walking around often and her children are helping to take care of her at home. She has recovered very well after her critical illness and is here today to discuss re versal options. She quit smoking after her previous operation and intends to maintain this. Primary Care Physician: Champ Quiroz MD Past Medical History[1] Surgical History[2] Prior to Admission medications Medication Sig Start Date End Date Taking? Authorizing Provider acetaminophen (Tylenol) 500 MG tablet Take 2 tablets by mouth every 6 hours as needed for pain, headaches or fever. 06/21/24 Yes Trinity Yousif APRN aspirin 81 MG chewable tablet Chew 1 tablet daily. 07/18/24 07/18/25 Yes Rebel Gambino MD buPROPion XL (Wellbutrin XL) 300 MG 24 hr tablet take 1 tablet by mouth every 24 hours 04/20/24 Yes ProviderJaden MD citalopram (CeleXA) 40 MG tablet Take 1 tablet by mouth. 12/30/22 Yes ProviderJaden MD Combivent Respimat 20-100 MCG/ACT inhaler 03/07/23 Yes ProviderJaden MD hydrOXYzine HCl (Atarax) 10 MG tablet Take 1 tablet (10 mg) by mouth every 8 hours as needed. Yes Provider, MD Jaden loratadine (Claritin) 10 MG tablet Take 1 tablet (10 mg) by mouth daily. Yes Provider, MD Jaden metoprolol tartrate (Lopressor) 25 MG tablet Take 1.5 tablets by mouth 2 times a day. 07/18/24 09/16/24Yes Rebel Gambino MD naloxone (Narcan) 4 mg/0.1 mL nasal spray 1. Give 1 spray in nostril for no/slow breathing or cannot wake after opioid use 2. Call 911 3. Repeat in other nostril if symptoms continue 06/21/24 Yes Trinity Yousif APRN potassium chloride CR (Klor-Con M20) 20 MEQ ER tablet Take 2 tablets by mouth daily. Do not crush or chew. 07/18/24 07/18/25 Yes Rebel Gambino MD primidone (Mysoline) 50 MG tablet Take 1 tablet (50 mg) by mouth every 12 (twelve) hours. Yes ProviderJaden MD rosuvastatin (Crestor) 40 MG tablet Take 1 tablet by mouth nightly. 06/21/24 06/21/25 Yes Trinity Yousif APRN simethicone (Mylicon) 80 MG chewable tablet Chew 1.5 tablets 4 times a day. 06/21/24 Yes Trinity Yousif APRN traZODone (Desyrel) 50 MG tablet 1 (one) time each day at the same time. 07/30/24 Yes ProviderJaden MD fluticasone (Flonase) 50 MCG/ACT nasal spray Administer 2 sprays into each nostril daily as needed. Patient not taking: Reported on 07/31/2024 12/24/23 ProviderJaden MD methocarbamol (Robaxin) 500 MG tablet Take 2 tablets by mouth 4 times a day for 10 days. Patient not taking: Reported on 07/31/2024 06/21/24 07/01/24 Trinity Yousif APRN metoprolol tartrate (Lopressor) 25 MG tablet Take 1 tablet by mouth 2 times a day. Patient not taking: Reported on 07/31/2024 06/21/24 06/21/25 Trinity Yousif APRN Allergies[3] Family History[4] Social History Socioeconomic History Marital status: Single Spouse name: Not on file Number of children: Not on file Years of education: Not on file Highest education level: Not on file Occupational History Not on file Tobacco Use Smoking status: Former Current packs/day: 0.00 Types: Cigarettes Quit date: 04/30/2024 Years since quittin.2 Smokeless tobacco: Never Vaping Use Vaping status: Never Used Substance and Sexual Activity Alcohol use: Not Currently Drug use: Not Currently Sexual activity: Defer Other Topics Concern Not on file Social History Narrative Not on file Social Drivers of Health Financial Resource Strain: Not on file Food Insecurity: No Food Insecurity (05/02/2024) Hunger Vital Sign Worried About Running Out of Food in the Last Year: Never true Ran Out of Food in the Last Year: Never true Transportation Needs: No Transportation Needs (05/02/2024) PRAPARE - Transportation Lack of Transportation (Medical): No Lack of Transportation (Non-Medical): No Physical Activity: Not on file Stress: Not on file Social Connections: Unknown (11/22/2022) Received from [facility] Family and Community Support Help with Day-to-Day Activities: Not on file Lonely or Isolated: Not on file Intimate Partner Violence: Not At Risk (05/02/2024) Humiliation, Afraid, Rape, and Kick questionnaire Fear of Current or Ex-Partner: No Emotionally Abused: No Physically Abused: No Sexually Abused: No Housing Stability: Unknown (05/02/2024) Housing Stability Vital Sign Unable to Pay for Housing in the Last Year: No Number of Times Moved in the Last Year: Not on file Homeless in the Last Year: No Review of Systems All other systems reviewed and are negative. Visit Vitals BP 126/78 (BP Location: Right arm, Patient Position: Sitting) Pulse 73 Temp 36.6 ??C (97.8 ??F) (Temporal) Ht 1.524 m (5') Wt 53.7 kg (118 lb 4.8 oz) SpO2 99% BMI 23.10 kg/m?? Physical Exam Vitals reviewed. Constitutional: Appearance: She is normal weight. HENT: Head: Normocephalic and atraumatic. Eyes: General: Right eye: No discharge. Left eye: No discharge. Extraocular Movements: Extraocular movements intact. Cardiovascular: Rate and Rhythm: Normal rate and regular rhythm. Pulses: Normal pulses. Pulmonary: Effort: Pulmonary effort is normal. No respiratory distress. Abdominal: General: Abdomen is flat. There is no distension. Tenderness: There is no abdominal tenderness. Comments: Colostomy in place in RUQ, pink and healthy appearing. Musculoskeletal: General: No swelling. Normal range of motion. Cervical back: Normal range of motion. No rigidity. Skin: General: Skin is warm. Capillary Refill: Capillary refill takes less than 2 seconds. Coloration: Skin is not jaundiced. Neurological: General: No focal deficit present. Mental Status: She is alert. Mental status is at baseline. Psychiatric: Mood and Affect: Mood normal. Behavior: Behavior normal. Assessment & Plan: In summary, Ms. Rere Reese is a 53 y.o. female with history of ischemic colitis s/p left hemicolectomy/sigmoidectomy with end transverse colostomy who is interested in reversal. At this time our plan includes the following: Follow-up in October for reversal in early November No need for additional testing or imaging. We did discuss today low profile ostomy appliances and other options for her ostomy before she is ready for reversal. [1] Past Medical History: Diagnosis Date Anxiety COPD (chronic obstructive pulmonary disease) ([facility]) 05/01/2024 Continue Duo nebs q6 SPO2 goal >88% Depression GERD (gastroesophageal reflux disease) 05/01/2024 Continue Protonix 40 mg daily Hyperkalemia 05/06/2024 Now resolved, pt with hypokalemia requiring replacement On mechanically assisted ventilation ([facility]) 05/06/2024 Arrived to ICU intubated 05/07 extubated to 4LNC 05/08 resolved Tobacco use 05/01/2024 Air Traffic Coordinator for smoking 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 Complicates all [...] - please document in the comment field [4] History reviewed. No pertinent family history. Cosigned by Lidia Troncoso MD at 08/01/2024 4:38 PM EDT Associated attestation - Lidia Troncoso MD - 08/01/2024 4:38 PM EDT I saw and evaluated the patient with the resident/fellow. I discussed the case with the resident/fellow and agree with the findings and plan as documented. documented in this encounter Plan of Treatment Upcoming Encounters Date Type Department Care Team (Late st Contact Info) Description 10/30/2024 10:45 AM EDT Office Visit [facility] General Surgery [address] [place] [address] Lidia Troncoso MD [address] [place] [address] documented as of this encounter Goals Goal [...] documented as of this encounter Visit Diagnoses Diagnosis S/P colostomy (CMS/HCC)- Primary Colostomy status S/P colon resection Other postprocedural status documented in this encounter Additional Health Concerns Assessment Noted Time PHQ-9 Depression Total Score: 1 06/30/19 2:40 PM EDT A fall risk assessment has been complete d for the patient 07/18/2024 11:10 AM EDT A Body Mass Index follow-up plan has been documented for the patient 08/01/2024 4:38 PM EDT documented as of this encounter Care Teams Safety Belt Installer Relationship Specialty Start Date End Date Champ Quiroz MD [address] [place] [id number] PCP - General Internal Medicine 06/29/24 documented as of this encounter
--- OUTSIDE RECORDS SUMMARY | 2024-08-20 11:15 | XMS_ITS ---
Author Organization [facility] Address [address] [place] [address] Care Team Providers Care Library Media Specialist Name Role Phone Michaelle Rivas Primary Care Provider [phone] Champ Quiroz Unavailable [phone] Allergies Allergen (clinical drug ingredient) Drug/Non Drug Allergy documented on EMR Reaction Allergy Type Onset Date Status LATEX GLOVES (uncoded) Unknown Allergy Active acetaminophen / oxycodone Percocet stomach upset, sweating Drug Allergy Active REASON FOR VISIT 1 month follow up, Hospital follow up Medications Medication SIG (Take, Route, Frequency, Duration) Notes Start Date End Date Status Primidone 50 MG 1 tab(s) orally twic e a day; Duration: 90 days Active Combivent Respimat 20-100 MCG/ACT INHALE 1 PUFF BY MOUTH 4 TIMES DAILY; Duration: 30 days prn Active Citalopram Hydrobromide 40 MG 1 tab(s) orally once a day; Duration: 90 days Active Pyridium 200 MG 1 tablet after meals Orally Three times a day; Duration: 2 days 07/02/2024 Active hydrOXYzine HCl 10 MG 1 tab orally every 8 hours; Duration: 30 days Active Aspirin 81 81 MG 1 tablet Orally Once a day Active Acetaminophen 500 MG 2 tablet as needed Orally every 6 hrs Active Metoprolol Tartrate 25 MG 1 tablet Orall y Twice a day Active Loratadine 10 MG 1 tablet Orally Once a day Active Flonase Allergy Relief 50 MCG/ACT 1 spray in each nostril Nasally Twice a day Active Simethicone 80 MG 1 tablet after meals and at bedtime as needed Orally Four times a day Active Rosuvastatin Calcium 40 MG 1 tablet Oral ly Once a day; Duration: 30 days Active traZODone HCl 50 MG 1 tablet at bedtime as needed Orally Once a day; Duration: 30 days 07/30/2024 Active buPROPion HCl ER (XL) 300 MG 1 tab(s) or ally every 24 hours; Duration: 30 days Active Social History Tobacco Use: Social History [...] User Heavy cigarett e smoker (20-39 cigs/day) Vital Signs Temperature 98.0 degrees Fahrenheit 08/21/19 25 Heart Rate 88 /min 08/20/2024 Blood pressure systolic 120 mm Hg 08/21/19 25 Blood pressure diastolic 72 mm Hg 025 Height 5 ft 1 in in 08/20/2024 Weight 114.8 lbs 08/20/2024 BMI 21.69 kg/m2 08/20/2024 Encounters Encounter Location Date Provider Diagnosis [facility] [address] [address] [facility] [address] [place] [address] 08/20/2024 Champ Quiroz Plan Of Treatment Next Appt Details Provider Name:Champ Quiroz, 10/01/2024 03:15:00 PM, [address] [facility] [address] [facility], [address], [place], [address], Progress Notes * Rere REESE ADOB: [birth year] (53 yo F)Acc No.[id number]:08/20/2024 HOSP F/U Patient: Dayana Rere CASIANO Provider: Dayana Quiroz MD :1970 A ge:53 Y S ex:Female Date:08/20/2024 Address:[address] [place] [address] [id number] Pcp:Michaelle Rivas Subjective: * Chief Complaints: * 1 . 1 month follow up, Hospital follow up. * HPI: I ntrim History: Transition of care visit from hospital D ate of admission to hospital: 0 08/07/2024, D ate of receipt of hospital admission report: 0 08/09/2024,?Date of discharge from hospital: 0 08/09/2024, D ate of receipt of hospital discharge summary: 0 08/10/2024, D ischarge medications reviewed and reconciled from hospital: M edications left unchanged. * Medical History: H ormone replacement therapy, Depression, Copd, Asthma, Smoker, Tremors, Coronary artery disease, status post CABG May [address] [facility], Sepsis, bowel ischemia and colostomy April/[address] [facility]. * Surgical History: l t rotator cuff 2020, rt hand surgery 01/2023, colon resection 04/30/24. * Hospitalization/Major Diagno stic Procedure: [facility] 01/2022, [facility]- heart attach 04/30/2024-06/28/24, Septic 07/24/2024, [facility]- abd pain 07/2024. * Family History: F ather: , Cholesterol [...] active: no. Travel outside [place]: no. 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 * Medications: T aking Simethicone [...] tab(s) orally once a day , Taking Pyridium 200 MG Tablet 1 tablet after meals Orally Three times a day , Taking hydrOXYzine HCl 10 MG Tablet 1 tab orally every 8 hours , Taking Rosuvastatin Calcium 40 MG Tablet 1 tablet Orally Once a day , Taking traZODone HCl 50 MG Tablet 1 tablet at bedtime as needed Orally Once a day , Taking buPROPion HCl ER (XL) 300 MG Tablet Extended Release 24 Hour 1 tab(s) orally every 24 hours , Medication List reviewed and reconciled with the patient * Allergies: L ATEX GLOVES, Percocet: stomach upset, sweating - Side Effects. Objective: * Vitals: N urse: be, Pain: 0, Temp: 98.0, RR: 16, HR: 88, BP: 120/72, Ht: 5 ft 1 in, Wt: 114.8, BMI:21.69. Assessment: Plan: * Treatment: * * Electronic signature of Philippe Quiroz MD FAAP on 08/21/2024 at 10:09 AM EDT Sign off status: Pending * Provider: Dayana Quiroz MD Date: 08/20/2024 Generated for Little catalan/Fior/Jericho on: 08/21/2024 10:09 AM EDT History and Physical Notes * HPI (History of Present Illness) Category Sub-Category Detail Notes Category Not es Intrim History Transition of care v isit from hospital Date of admission to hospital:: 08/07/2024 Date of receipt of hospital admission re port:: 08/09/2024 Date of discharge from hospital:: 2024 Date of receipt of hospital discharge licea mmary:: 08/10/2024 Discharge medications review ed and reconciled from hospital:: Medications left unchanged
[2024-08-21] VITALS (7 sets, daily range): BP systolic 97–162; BP diastolic 58–96; PULSE 71–86; RESP 19–20; TEMP 36.8–36.9; O2SAT 97–100; BMI 22.1
--- OUTSIDE RECORDS SUMMARY | 2024-08-21 10:00 | XMS_ITS | Encounter Summary ---
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) Right lower quadrant abdominal pain Procedures CT Abdomen Pelvis w IV & PO Contrast Lidia Troncoso MD [address] [address] Phone: tel: fax: Referral ID Status Reason Start Date Expiration Date Visits Re quested Visits Authorized [id number] Closed 08/21/2024 02/20/2026 1 1 Reason for Visit * Reason Comments Follow-up Encounter Details Date Type Department Care Team (Late st Contact Info) Description 08/21/2024 10:00 AM EDT Office Visit [facility] [address], [address]st [place] [address] Lidia Troncoso MD [id number] [place] 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) (Primary Dx); Right [...] any time in the past 12 m [facility], were you homeless or living in a [place] health care facility (including now)? No 05/02/2024 AUDIT-C Answer Date [...] 10:06 AM EDT documented in this encounter Plan of Treatment Upcoming Encounters Date Type Department Care Team (Late st Contact Info) Description 10/30/2024 10:45 AM EDT Office Visit [facility] General Surgery [address], [address] [place] [address] Lidia Troncoso MD [address] [place] [address] documented as of this encounter [...] documented as of this encounter Care Teams Die Trimmer Relationship Specialty Start Date End Date Champ Quiroz MD [address] [place] [address] PCP - General Internal Medicine 06/29/24 documented as of this encounter
--- OUTSIDE RECORDS SUMMARY | 2024-08-21 12:18 | XMS_ITS | Encounter Summary ---
Author Organization Healthcare Address [address] 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) Right lower quadrant abdominal pain Procedures CT Abdomen Pelvis w IV & PO Contrast Lidia Troncoso MD [address] [address] Phone: tel: fax: Referral ID Status Reason Start Date Expiration Date Visits Re quested Visits Authorized [id number] Closed 08/21/2024 02/20/2026 1 1 Reason for Visit * Imaging (Urgent) - Closed Specialty Diagnoses / Procedures Referred By Contac t Referred To Contact Radiology Diagnoses 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) Right lower quadrant abdominal pain Procedures CT Abdomen Pelvis w IV & PO Contrast Lidia Troncoso MD [address] [address] Phone: tel: fax: Referral ID Status Reason Start Date Expiration Date Visits Re quested Visits Authorized [id number] Closed 08/21/2024 02/20/2026 1 1 Encounter Details Date Type Department Care Team (Latest Contact Info) Description 08/21/2024 12:18 PM EDT Hospital Encounter [facility] [address]nd [place] [address] [address] ([facility]); Right lower quadrant abdominal pain Social History [...] any time in the past 12 m [facility], were you homeless or living [...] Recorded In the past 12 months has [employer], gas, oil, or water [employer] threatened to shut off services in your home? Yes 05/02/2024 PHQ-2A Answer Date Recorded Depression Risk 1 07/18/2024 Comments Unknown Sex and Gender Information Value Date Recorded Sex Assigned at Not on file Legal Sex Female 8:00 PM EDT Gender Identity Not on file Sexual Orientation Not on file documented as of this encounter Miscellaneous Notes * Emmy Quintana - 08/21/2024 12:22 PM EDT Images from [...] Visit [facility] General Surgery [address], [address] [place] [address] Lidia Troncoso MD [address] [place] [address] documented as of this encounter Goals Goal Patient Goal Type Associated Problems Recent Progress Patient-Stated? Author Patient will verbalize understanding of orthotic wear , care and precautions to protect surgical repair for additional 4 weeks. Occupational Therapy No dJ Sabillon Patient will demonstrate correct performance of [...] documented as of this encounter Care Teams Shank Taper Relationship Specialty Start Date End Date Champ Quiroz MD [address] [place] [address] PCP - General Internal Medicine 06/29/24 documented as of this encounter
--- NOTE | 2024-08-21 14:37 | ED_ITS ---
<Statement entered by Jaime Fisher MD - 08/28/24 23:25> I was consulted by the VIRGINIE, and we discussed the complexity of the problems being addressed. I approved the treatment and management plan for this patient's care in the emergency department, thus performing a substantive portion of the medical decision making. Jaime Fisher MD, MARINO, FACEP Discharge Plan Disposition Patient Disposition: Home, Self-Care Condition: Good Prescriptions Prescriptions: New vancomycin [Firvanq] 50 mg/mL recon soln 125 mg PO QID 14 Days Qty: 140 0RF metronidazole 500 mg tablet 500 mg PO Q8H 14 Days Qty: 42 0RF ondansetron 4 mg tablet,disintegrating 4 mg PO QID PRN (Reason: nausea and vomiting) Qty: 10 0RF hydrocodone-acetaminophen 5-325 mg tablet 1 tab PO Q8H PRN (Reason: pain) Qty: 12 0RF No Action trazodone 50 mg Tablet 50 mg PO HSP PRN (Reason: Insomnia) potassium chloride 20 mEq tablet,ER particles/crystals 40 meq PO DAILY Patient Comments: TAKE 2 TABLETS BY MOUTH ONCE DAILY DO NOT CRUSH OR CHEW vancomycin [Firvanq] 50 mg/mL Recon Soln 125 mg PO QID 8 Days Qty: 80 0RF amoxicillin-pot clavulanate [Augmentin] 500-125 mg tablet 1 tab PO TID 5 Days Qty: 15 0RF prednisone 20 mg tablet 40 mg PO DAILY 5 Days Qty: 10 0RF oxycodone 5 mg tablet 5 mg PO Q8H PRN (Reason: pain) Qty: 12 0RF ondansetron 4 mg tablet,disintegrating 4 mg PO Q8H PRN (Reason: nausea and vomiting) 4 Days Qty: 12 0RF primidone 50 mg tablet 50 mg PO BID Patient Comments: TAKE 1 TABLET BY MOUTH TWICE DAILY FOR 90 DAYS citalopram 40 mg tablet 40 mg PO DAILY hydroxyzine HCl 10 mg tablet 10 mg PO Q8HP PRN (Reason: Anxiety) Patient Comments: TAKE 1 TABLET BY MOUTH EVERY 8 HOURS NEEDED FOR 15 DAYS bupropion HCl 300 mg tablet extended release 24 hr 300 mg PO DAILY Patient Comments: TAKE 1 TABLET BY MOUTH EVERY 24 HOURS aspirin 81 mg tablet,chewable 81 mg PO DAILY rosuvastatin 40 mg tablet 40 mg PO HS metoprolol tartrate 25 mg tablet 37.5 mg PO BID Patient Comments: TAKE 1 & 1/2 (ONE & ONE-HALF) TABLETS BY MOUTH TWICE DAILY Referrals Follow up/Referrals: Champ Quiroz MD [Primary Care Provider, Internal Medicine] - See instructions Activity Restrictions/Add. Instructions Additional Instructions/Restrictions: As we discussed Dr. Troncoso is going to maintain close contact with you regarding your symptoms. If you have any new or worsening signs or symptoms please notify Dr. Troncoso follow-up with your PCP or return to the [facility] or to our ER as needed. Clinical Impressions Clinical Impression: Abdominal pain, acute, Enteritis Instructions Patient Instructions: DI for Acute Abdominal Pain Print Language Print Language: Setswana Discharge ED Provider: Jaime Fisher General Adult HPI General Chief complaint: Abdominal Pain Stated complaint: abd pain around stoma Time Seen by Provider: 08/21/24 14:37 History of Present Illness HPI narrative: Patient presents for evaluation of right lower quadrant abdominal pain. Patient has had a complicated medical history since April of this year. Patient had a STEMI and ultimately was referred to the [facility] for coronary artery bypass graft which she underwent successfully. However during that admission patient had a prolonged ileus and ultimately had colonic perforation that necessitated a left hemicolectomy and stoma formation. 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 During that admission it was found that she was C. difficile positive and she was treated with a course of oral vancomycin which she completed. Patient today had follow-up with her colorectal surgeon for these complaints and as she was plane tender and somewhat symptomatic they ordered a CT scan of her abdomen. However patient states her pain escalated after being seen to the point where she had to come to the emergency department for evaluation. Patient reports that she is continuing to be able to eat and drink normally and has noticed that she has had diarrheal stools in her ostomy bag but no evidence of hematochezia or melena. Pain does not radiate but is more focal in the right lower quadrant. She denies any fever chills hemoptysis hematochezia melena nausea or vomiting. Related Data Home Medications ?Medication ?Instructions ?Recorded ?Confirmed citalopram 40 mg tablet 40 mg PO DAILY 12/23/2307/16 primidone 50 mg tablet 50 mg PO BID 12/23/23 bupropion HCl 300 mg 24 hr tablet, 300 mg PO DAILY 08/07/24 extended release hydroxyzine HCl 10 mg tablet 10 mg PO Q8HP PRN Anxiety 05/01/24 08/07/24 aspirin 81 mg chewable tablet 81 mg PO DAILY 07/21/24 08/07/24 metoprolol tartrate 25 mg tablet 37.5 mg PO BID 08/07/24 rosuvastatin 40 mg tablet 40 mg PO HS 07/21/24 5 trazodone 50 mg tablet 50 mg PO HSP PRN Insomnia 08/08/24 potassium chloride 20 mEq 40 meq PO DAILY 08/08/24 tablet,extended release(part/cryst) Previous Rx's ?Medication ?Instructions ?Recorded amoxicillin 500 mg-potassium 1 tab PO TID 5 days #15 t abs 08/09/24 clavulanate 125 mg tablet (Augmentin) ondansetron 4 mg disintegrating 4 mg PO Q8H PRN nausea and 08/09/24 tablet vomiting 4 days #12 tabs oxycodone 5 mg tablet 5 mg PO Q8H PRN pain #12 tab s 08/09/24 prednisone 20 mg tablet 40 mg (2 x 20 mg) PO DAILY 5 days 08/09/24 #10 tabs vancomycin 50 mg/mL oral solution 125 mg (2.5 mL) PO Q ID 8 days #80 08/09/24 (Firvanq) mL hydrocodone 5 mg-acetaminophen 325 1 tab PO Q8H PRN pa in #12 tabs 08/21/24 mg tablet metronidazole 500 mg tablet 500 mg PO Q8H 14 days #42 tabs 08/21/24 ondansetron 4 mg disintegrating 4 mg PO QID PRN nausea and 08/21/24 tablet vomiting #10 tabs vancomycin 50 mg/mL oral solution 125 mg (2.5 mL) PO Q ID 14 days 08/21/24 (Firvanq) #140 mL Allergies Allergy/AdvReac Type Severity Reaction Status Date / Time oxycodone (From Percocet) AdvReac Vomiting Verified 07/21/24 18:47 PFSH PFSH Disclaimer: The information contained in this section may have been updated after the patient was seen, as this information can be updated by other users. Medical History Colostomy in place Heart attack Depression Anxiety History of pleurisy Hemorrhoid Essential tremor Endometriosis Surgical History History of hand surgery History of Hx of cholecystectomy H/O rotator cuff surgery History of hysterectomy Family History Other Essential tremor Family history of heart disease Social History Smoking Status: Current every day smoker tobacco type: cigarettes packs per day: 1 alcohol intake: never substance use type: denies use current occupational status: unemployed and retired Travel in the last 8 weeks?: Inside the [place] household members: family housing: house caffeine: Yes Have you lived/traveled outside [place] in past 30 days?: No Contact w/someone who lives/traveled outside US past 30 days?: No Exposure to someone with infectious disease in past 14 days?: No Do you have a fever (greater than 100.4 F or 38 C)?: No Have you tested positive for COVID-19?: No Exposed to someone with COVID-19 in past 14 days?: No Do you have a sore throat?: No Do you have a cough?: No Do you have any weakness?: No Do you have any diarrhea?: No Are you experiencing any unusual bleeding?: No Do you have any muscle aches/pain?: No Do you have any abdominal pain?: No Are you experiencing loss of taste or smell?: No Other Medical History Have you received the Flu Vaccine for this season: No Have you received the Pneumonia Vaccine: No ROS Obtained: Yes Systems reviewed as appropriate & no additional complaints except as documented Physical Exam General General appearance: alert and in no apparent distress Respiratory Respiratory exam: Present normal lung sounds bilaterally Cardiovascular Cardiovascular exam: Present regular rate Neurological Exam Neurological exam: Present alert and oriented X3 Medical Decision Making Medical Records Medical records reviewed: Yes I reviewed the patient's medical records. Screening: Per USPSTF and CDC recommendations, given the prevalence of disease in our region, it is our hospital?s policy to screen for HIV and viral Hepatitis for all patients aged 18 and over and those with ongoing risk factors. Supa Inquiry Pt receiving controlled substance: No Vital Signs: 08/21/24 14:47 08/21/24 15:40 08/21/24 16:00 Temperature 98.4 F Temperature Source Oral Pulse Rate 84 74 Pulse Rate [Left Radial] 86 Respiratory Rate 19 Blood Pressure 97/61 L 97/61 L Blood Pressure [Right Arm] 162/96 H Blood Pressure Mean [Right Arm] 118 02 Sat by Pulse Oximetry 100 98 97 Oxygen Delivery Method Room Air Room Air 08/21/24 16:34 08/21/24 16:44 08/21/24 17:00 Temperature Temperature Source Pulse Rate 74 71 71 Pulse Rate [Left Radial] Respiratory Rate Blood Pressure 97/58 L 113/65 102/64 L Blood Pressure [Right Arm] Blood Pressure Mean [Right Arm] 02 Sat by Pulse Oximetry 99 97 98 Oxygen Delivery Method 08/21/24 17:40 Temperature 98.2 F Temperature Source Pulse Rate 72 Pulse Rate [Left Radial] Respiratory Rate 20 Blood Pressure 107/67 L Blood Pressure [Right Arm] Blood Pressure Mean [Right Arm] 02 Sat by Pulse Oximetry Oxygen Delivery Method Room Air Lab Data Lab results reviewed: Yes I reviewed the patient's lab results. Lab Results 08/21/24 15:18: Urine Color Yellow, Urine Appearance Clear, Urine pH 6.0, Ur Specific [place] <= 1.005, Urine Protein Negative, Urine Glucose (UA) Negative, Urine Ketones Negative, Urine Blood Negative, Urine Nitrate Negative, Urine Bilirubin Negative, Urine Urobilinogen 0.2, Ur Leukocyte Esterase Negative, Urine RBC 3-5, Urine WBC Occasional, Ur Squamous Epith Cells Occasional 08/21/24 15:24: WBC 17.5 H, RBC 4.07 L, Hgb 11.8 L, Hct 37.0, MCV 90.9, MCH 29.0, MCHC 31.9, RDW 15.5, Plt Count 454 H, MPV 9.5, Neut % (Auto) 67.4, Lymph % (Auto) 21.4, [place] % (Auto) 7.6, Eos % (Auto) 2.3, Baso % (Auto) 0.8, Neut # (Auto) 11.8 H, Lymph # (Auto) 3.8, [place] # (Auto) 1.3 H, Eos # (Auto) 0.4, Baso # (Auto) 0.1, ESR 15, Sodium 137, Potassium 5.1, Chloride 98, Carbon Dioxide 32 H, Anion Gap 12.1, BUN 11, Creatinine 0.70, Estimated Creat Clear 77, Estimated GFR 87, Est GFR ( Amer) 106, Glucose 97, Calcium 9.0, Phosphorus 4.6 H, Magnesium 1.9, Total Bilirubin 0.4, AST 85 H, ALT 160 H, Alkaline Phosphatase 184 H, C-Reactive Protein 2.2, Total Protein 6.3, Albumin 3.5, Globulin 2.8, Albumin/Globulin Ratio 1.3, Procalcitonin 0.041 08/21/24 15:33: Lactate 2.1 08/21/24 15:24 08/21/24 15:24 Orders (Tests/Meds): ED MEDICATIONS Discontinued Medications Generic Name Dose Route Start Last Admin Trade Name Freq PRN Reason Stop Dose Admin Acetaminophen 1,000 mg 08/21/24 15:03 08/21/24 15:36 Acetaminophen 1,000mg/100ml Vial IV 08/21/24 15:04 1,000 mg ONCE ONE Administration Hydromorphone HCl 0.5 mg 08/21/24 15:03 08/21/24 15:37 Hydromorphone 2mg/Ml Syringe IV 08/21/24 15:04 0.5 mg ONCE ONE Administration Hydromorphone HCl 0.5 mg 08/21/24 17:06 08/21/24 17:27 Hydromorphone 2mg/Ml Syringe IV 08/21/24 17:07 0.5 mg ONCE ONE Administration Sodium Chloride 1,000 mls @ 999 mls/hr 08/21/24 15:03 08/21/24 15:36 Sod Chlor 0.9% 1000ml Bag IV 08/21/24 16:03 999 mls/hr .Q1H1M ONE Administration Ketorolac Tromethamine 15 mg 08/21/24 15:03 08/21/24 15:37 Ketorolac 30mg/Ml Vial IV 08/21/24 15:04 15 mg ONCE ONE Administration Metronidazole 500 mg 08/21/24 17:04 08/21/24 17:27 Metronidazole 500 Mg Tablet PO 08/21/24 17:05 500 mg ONCE ONE Administration Ondansetron HCl 4 mg 08/21/24 15:03 08/21/24 15:37 Ondansetron 4mg/2ml Vial IV 08/21/24 15:04 4 mg ONCE ONE Administration Vancomycin HCl 125 mg 08/21/24 21:00 08/21/24 17:27 Vancomycin Hcl 50mg/Ml 150ml Kit PO 08/31/24 17:01 125 mg QID LINDA Administration ORDERS Category Date Time Status CBC w/Auto Diff [Complete Blood Count Auto Diff] Stat Lab 08/21/24 15:24 Completed CMP [Comprehensive Metabolic Panel] Stat Lab 08/21/24 15:24 Completed CRP [C-Reactive Protein] Stat Lab 08/21/24 15:24 Completed Diarrhea 23 Panel, PCR Stat Lab 08/21/24 16:30 Received ESR [Erythrocyte Sedimentation Rate] Stat Lab 08/21/24 15:24 Completed Lactic Acid Stat Lab 08/21/24 15:33 Completed Magnesium Stat Lab 08/21/24 15:24 Completed Phosphorous Stat Lab 08/21/24 15:24 Completed Procalcitonin Stat Lab 08/21/24 15:24 Completed UA [Urinalysis and Microscopic] Stat Lab 08/21/24 15:18 Completed Medical Decision Narrative: In summary patient is a 53-year-old female who presents to the emergency department for evaluation of abdominal pain. Patient is hemodynamically stable with a blood pressure 162/96 pulse 86 respiratory rate is 19 satting at 100% on room air upon arrival, afebrile at 98.4. Physical exam is remarkable for nonfocal right sided abdominal tenderness worse in the right lower quadrant but there is no rebound no guarding no rigidity bowel sounds normal active and abdomen is soft.. Differential diagnosis includes enteritis versus bowel obstruction versus ileus versus less likely but possible perforation given her rapid acute acceleration and the fact that her abdominal pain appears to be out of proportion to exam. Initial workup will be conducted with hematologic labs and obtaining a CT scan read from the [facility]. Initial interventions include crystalloid bolus Toradol Tylenol Zofran and 0.5 mg of Dilaudid. Initial workup reviewed by me and her hematologic labs are significant for a CBC that shows a white count of 17.5 hemoglobin hematocrit 11.8 and 37.0 respectively absolute neutrophil counts 11.8 sed rate is 15 procalcitonin is 0.041 and her C-reactive protein is 2.2 urinalysis is bland and the remainder of her hematologic labs are nonactionable. I was able to obtain a read from the [facility] that showed she has persistent abnormal wall thickening and enhancement of the distal small bowel loops with mild fluid distention. There was also fluid distending the proximal colon to the ostomy along the right anterior abdominal wall. Differential includes a persistent nonspecific enteritis. There is also surrounding stranding and fluid within the pelvis with mild distention of the right renal collecting system and ureter. Previous pouchitis was not seen on this imaging. In anticipation of possible admission I inquired whether or not our facility has Dific[facility] which we do not have but I do know that Dificid requires prior authorization and all of our local pharmacies. Given this I had an interactive discussion with Dr. Laughlin colorectal surgery at the [facility] guarding patient presentation and management. I am concerned that she may have recurrent C. difficile and I have sent a diarrhea panel however the results would not be available for several hours. I discussed transfer versus outpatient management. After reassessment patient pain is better controlled and is tolerating oral intake. Given this news suggested a longer course of vancomycin orally along with the addition of Flagyl and close follow-up with colorectal surgery. Dr. Troncoso concurred. Given this I had interact discussion with the patient regarding her SUAREZ and management options and she is comfortable going home with the aforementioned plan with close follow-up with colorectal surgery and strict return precautions. Given this I have sent a prescription for vancomycin and Flagyl to her pharmacy with first doses given here and strict return precautions. Critical Care Critical Care Time Critical Care Time: Yes Attestation: On 08/21/24, the high probability of a clinically significant, sudden or life threatening deterioration of the following system(s) required my full and direct attention, intervention and personal management. The time I documented below is in addition to time spent performing reported procedures but includes the following listed in this critical care notation. Total Time Total Critical Care Time: 30
--- OUTSIDE RECORDS SUMMARY | 2024-08-21 14:39 | XMS_ITS | Encounter Summary ---
Author Organization Healthcare Address [address] [place] [address] Care Team Providers Care Production Drilling Machine Operator Name Role Phone Pcp, No Primary Care Provider Champ Butler MD Primary Care Provider + [phone] Encounter Details Date Type Department Care Team (Late st Contact Info) Description 05/14/2024 Lab Requisition [facility] [address] [place] [address] Tom Dyson MD [address] [facility] [address] [place] [id number] Encounter for general adult medical examination without [...] [address] [place] [address] Lidia Troncoso MD [address] [place] [address] documented as of this encounter [...] at day 1 05/15/2024 11:17 AM EDT [facility] Swab (Nares and Jacey Rectal) 05/14/2024 8:24 AM EDT 05/14/2024 2:12 PM EDT us Tom Dyson MD LAB MICROBIOLOGY - GEN ERAL ORDERABLES Final Result [facility] [address] [place] [address] documented in this encounter Visit Diagnoses Diagnosis [...] documented as of this encounter Care Teams Production Drilling Machine Operator Relationship Specialty Start Date End Date Pcp, [place] [address] PCP - General Family Medicine 04/04/24 06/28/24 Champ Quiroz MD [address] [place] [id number] PCP - General Internal Medicine 06/29/24 documented as of this encounter
--- OUTSIDE RECORDS SUMMARY | 2024-08-21 14:39 | XMS_ITS | Encounter Summary ---
Author Organization Healthcare Address [address] [place] [address] Care Team Providers Care Party Plan Sales Agent Name Role Phone Pcp, No Primary Care Provider Champ Butler MD Primary Care Provider + [phone] Encounter Details Date Type Department Care Team (Late st Contact Info) Description 05/21/2024 Lab Requisition [facility] [address] [place] [address] Tom Dyson MD [address] [facility] [address] [place] [id number] Encounter for general adult medical examination without [...] Description 10/30/2024 10:45 AM EDT Office Visit [facility] General Surgery [address] [place] [address] Lidia Troncoso MD [address] [place] [address] documented as of this encounter [...] at day 1 05/22/2024 8:46 AM EDT [facility] Swab (Nares and Jacey Rectal) 05/21/2024 11:00 AM EDT 05/21/2024 11:55 AM EDT us Tom Dyson MD LAB MICROBIOLOGY - GEN ERAL ORDERABLES Final Result [facility] [address] [place] [address] documented in this encounter Visit Diagnoses Diagnosis [...] documented as of this encounter Care Teams Party Plan Sales Agent Relationship Specialty Start Date End Date Pcp, Katherine [address] [place] [address] PCP - General Family Medicine 04/04/24 06/28/24 Champ Quiroz MD [address] [place] [address] PCP - General Internal Medicine 06/29/24 documented as of this encounter
--- OUTSIDE RECORDS SUMMARY | 2024-08-21 14:40 | XMS_ITS | Clinical Summary ---
Author Organization [facility] Address [address] [place] [address] Care Team Providers Care Pharmacy Manager Name Role Phone Champ Quiroz MD Primary Care Provider [phone] Allergies Active Allergy Reactions Criticality Noted Date [...] Active Additional Information Patient not taking.Reported on 08/21/2024 naloxone (Narcan) 4 mg/0.1 mL nasal spray 1. Give 1 spray in nostril for no/slow breathing or cannot wake after opioid use 2. Call 911 3. Repeat in other nostril if symptoms continue 1 each 5 Active Additional Information Patient not taking.Reported on 08/21/2024 rosuvastatin (Crestor) 40 MG tablet Take 1 tablet by mouth nightly. 30 tablet 2 5 06/22/19 26 Active simethicone (Mylicon) 80 MG chewable tablet Chew 1.5 tablets 4 times a day. 30 tablet 5 Active aspirin 81 MG chewable tablet Chew 1 tablet daily. 30 tablet 2 5 07/19/19 26 Active potassium chloride CR (Klor-Con M20) 20 MEQ ER tablet Take 2 tablets by mouth daily. Do not crush or chew. 60 tablet 5 07/19/19 26 Active traZODone (Desyrel) 50 MG tablet 1 (one) time each day at the same time. 5 Active metoprolol tartrate (Lopressor) 25 MG tablet Take 1.5 tablets by mouth 2 times a day. 90 tablet 5 10/15/19 25 Active metoprolol tartrate (Lopressor) 25 MG tablet Take 1 tablet by mouth 2 times a day. 60 tablet 2 5 08/16/19 25 Discontin ued(Dose adjustmen t) metoprolol tartrate (Lopressor) 25 MG tablet Take 1.5 tablets by mouth 2 times a day. 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 Austin Aspirin, statin, beta stacey Hypertension 05/06/2024 Thrombocytosis 05/04/2024 Hypocalcemia 05/04/2024 Hyperlipidemia 05/04/2024 TOHM (obstructive sleep apnea) 05/04/2024 Overview (06/14/2024): Leukocytosis [...] Overview (05/28/2024): S/p colectomy & end colostomy 05/23/ perforation On total parenteral nutrition (TPN) 05/21/2024 [...] gtts SBP within goal Cardiac volume overload 05/06/202405/16 Overview (05/18/2024): Diuresis as clinically indicated Prolonged Q-T interval on ECG 05/04/2024 06/21/2024 Overview (05/07/2024): 05/07 EKG reviewed Colon perforation 05/01/2024 06/21/2024 Overview (06/11/2024): Noted on CT scan 05/23/24 S/p left colectomy and end colostomy 05-23-24 Encounters Date Type Department Care Team Description 08/21/2024 12:18 PM EDT Hospital Encounter [facility] [address] [place] [address] ([facility]); Right lower quadrant abdominal pain 08/21/2024 10:00 AM EDT Office Visit [facility] General Surgery [address], [address] [place] [address] Lidia Troncoso MD Colostomy in place ([facility]) (Primary Dx); Right lower quadrant abdominal pain 08/21/2024 Telephone [facility] General Surgery [address], [address] [place] [address] Lidia Troncoso MD HCN Clinical Concern/Question 08/21/2024 Travel 08/20/2024 Telephone [facility] General Surgery [address], [address] [place] [address] Lidia Troncoso MD HCN - Patient Message (Reschedule due to transportation ) 08/15/2024 Refill [facility] Cardiothoracic [address], [address] [place] [id number] Ana Luisa Simental RN 08/09/2024 Orders Only External Location [address] [place] [address] Millie Ambrose, 08/07/2024 Orders Only External Location [address] [place] [address] Provider, External 08/07/2024 Telephone [facility] General Surgery [address] [place] [address] Rina Mason RN 07/31/2024 9:00 AM EDT Office Visit [facility] General Surgery [address], [address] [place] [address] Lidia Troncoso MD S/P colostomy ([facility]) (Primary Dx); S/P colon resection 07/31/2024 Travel 07/21/2024 Orders Only External Location [address] [place] [address] Sundeep Fisher MD 07/20/2024 Telephone [facility] Cardiothoracic [address], [address] [place] [phone] Ana Luisa Simental RN 07/18/2024 11:00 AM EDT Office Visit [facility] Cardiothoracic [address], [address] [place] [address] Maite Austin MD CAD, multiple vessel (Primary Dx); Tobacco use; Anxiety and depression; Chronic obstructive pulmonary disease, unspecified COPD type ([facility]); NSTEMI (non-ST elevated myocardial infarction) ([facility]); THOM (obstructive sleep apnea); S/P CABG x 4; Post-op pain 07/18/2024 9:52 AM EDT - 07/18/2024 11:59 PM EDT Hospital Encounter [facility] Radiology [address] [place] [phone] CAD, multiple vessel Discharge Disposition: Home or Self Care 07/18/2024 Travel 06/29/2024 2:30 PM EDT Office Visit [facility] General Surgery [address], [address] [place] [address] Lidia Troncoso MD 06/29/2024 Travel 06/26/2024 Telephone [facility] Cardiothoracic [address], [address] [place] [phone] Ana Luisa Simental RN 06/26/2024 Telephone [facility] General Surgery [address] [place] [address] Judy Mancuso MD HCN Clinical Concern/Question 06/25/2024 Telephone [facility] General Surgery [address], [address] [place] [address] Katharine Urbano RN 06/21/2024 Travel 06/20/2024 Travel 06/19/2024 Travel 06/18/2024 Travel 06/17/2024 Travel 06/15/2024 Travel 06/14/2024 Travel 06/11/2024 Travel 06/09/2024 Travel 06/08/2024 Travel 06/05/2024 Travel 06/04/2024 Travel 06/01/2024 Travel 05/31/2024 Travel 05/30/2024 Travel 05/29/2024 Results Follow-Up Colorectal Surgery [address] [address] Lidia Troncoso MD 05/29/2024 Travel 05/28/2024 Travel 05/27/2024 Travel 05/26/2024 Travel 05/25/2024 Travel 05/24/2024 Travel 05/23/2024 1:30 PM EDT Anesthesia Event [facility] [address] [place] [address] Compa Cuellar MD Carney Tinsley, Amanda S, WEDDING PL[employer]NER, DNP 05/23/2024 12:31 PM EDT - 05/23/2024 4:06 PM EDT Surgery [facility] [address] [place] [address] Judy Mancuso MD LAPAROTOMY, EXPLORATORY, possible bowel resection, possible ostomy [32508 (CPT )] 05/23/2024 Travel 05/22/2024 Travel 05/01/2024 11:01 PM EDT - 06/21/2024 3:41 PM EDT Hospital Encounter [facility] [address] [place] [address] Edson Mcclure DO [place] Moctezuma MD Reda, Hassan K, MD S/P colon [...] time in the past 12 m [facility], were you homeless or living [...] In the past 12 months has th Frequent Browser, gas, oil, or water [employer] threatened to shut off services in your [...] Mass Index 22.91 08/21/2024 10:06 AM EDT Plan of Treatment Upcoming Encounters Date Type Department Care Team (Late st Contact Info) Description 10/30/2024 10:45 AM EDT Office Visit [facility] General Surgery [address], [address] [place] [address] Lidia Troncoso MD [address] [place] [address] Health Maintenance Due Date Last Done Comments [facility]-HIV Screening 1970 [facility]-Hepatitis C Screening 1970 [facility]-Infant/Child/Adol SDOH Screenings 1970 [facility]-Hepatitis A Vaccines (1 [...] 11/03/2019 [facility]-Zoster Vaccines (1 of 2) 11/03/2019 [id number] Vaccine (1 - 2023- season) 2023 [facility]-Influenza Vaccine (#1) 10/15/202412/08, 11/06/2018, 01/13/2007 [facility]- SDOH Screenings 2024 [facility]-Adult [...] [employer] Implanted Type Area Production Repairer Device Identifier Shelf Expiration Date Model / Serial / Lot Pledget Ptfe [place] 4.8mm X 6mm - [id number] Implanted:05/06 by aMite Austin MD at [facility] (Quantity not on file) [id number] / / Procedures Procedure Name Priority Date/Time Associated Diagnosis Comments CT ABDOMEN PELVIS W IV CONTRAST STAT 08/21/2024 1:08 PM EDT Colostomy in place ([facility]) Right lower quadrant abdominal pain CT OUTSIDE IMAGES 08/09/2024 7:[address] [facility] OUTSIDE IMAGES 08/07/2024 12:[address] ANGIO ABDOMEN PELVIS 07/22/19 7:18 PM EDT ECG ADULT Routine 07/18/2024 [...] PM EDT BLOOD GAS PANEL, VENOUS Routine 06/15/19 12:58 AM EDT MAGNESIUM, PLASMA Routine 06/14/2024 [...] AM EDT EXTRA TUBE LAVENDER TOP Routine 06/12/19 4:32 AM EDT EXTRA TUBE LIGHT GREEN [...] OXYGEN THERAPY Routine 05/30/2024 8:00 PM EDT KS NEGATIVE PRESSURE WOUND THERAPY DME >50 SQ [...] OXYGEN THERAPY Routine 05/28/2024 8:00 PM EDT KS NEGATIVE PRESSURE WOUND THERAPY DME >50 SQ CM Routine 05/28/2024 6:10 PM EDT Colon perforation (CMS/HCC) KS CRITICAL CARE, ADDL 30 MIN Routine 05/28/2024 [...] PEP THERAPY Routine 05/27/2024 2:00 PM EDT KS CRITICAL CARE, E/M 30-74 MINUTES Routine 05/27/2024 11:12 AM EDT Colon perforation (CMS/HCC) PEP THERAPY Routine 05/27/2024 10:00 AM EDT OXYGEN THERAPY Routine 05/27/2024 8:00 AM EDT PEP THERAPY Routine 05/27/2024 6:00 AM EDT MORPHOLOGY Routine 05/27/2024 4:54 AM EDT MANUAL DIFFERENTIAL Routine 05/27/2024 4:54 AM EDT RENAL FUNCTION [...] BLOOD CELLS Routine 05/26/2024 4:16 PM EDT KS CRITICAL CARE, ADDL 30 MIN Routine 05/26/2024 [...] PEP THERAPY Routine 05/24/2024 2:00 PM EDT KS CRITICAL CARE, E/M 30-74 MINUTES Routine 05/24/2024 [...] 6:00 PM EDT SURGICAL PATHOLOGY EXAM Routine 05/24/19 4:09 PM EDT Colon perforation (CMS/HCC) TRANSFUSE [...] ANESTHESIA PLACEHOLDER Routine 05/23/2024 1:43 PM EDT KS AN ELECTIVE ENDOTRACHEAL AIRWAY Routine 05/23/2024 1:43 PM EDT KS PART REMOVAL COLON W ANASTOMOSIS 05/23/2024 1:16 PM EDT Colon perforation (CMS/HCC) KS EXPLORATORY OF ABDOMEN 05/23/2024 1:16 PM EDT [...] WHOLE BLOOD Timed 05/22/2024 12:01 AM EDT from Last 3 Months Results * CT Abdomen Pelvis w IV & PO Contrast (08/21/2024 1:08 PM EDT) Only the most recent of3 [...] Heather Aguirre MD on 08/21/2024 1:34 PM Lidia Troncoso MD IMG CT PROCEDURES Final Result * CT OUTSIDE IMAGES (08/09/2024 7:35 PM EDT) Anatomical Region Laterality Modality Computed Tomogra phy 08/09/2024 7:35 PM EDT us Millie Ambrose DO IMG CT PROCEDURES Final Result * CT MSK OUTSIDE IMAGES (08/07/2024 12:27 [...] 11:22 AM EDT) Only the most recent of2 resultswithin the time period is included. EKG DIAGNOSIS CLASS Abnormal MUSE ECG Ventricular Rate 109 BPM MUSE ECG Atrial Rate 109 BPM MUSE ECG KS Interval 120 ms MUSE ECG QRSD Interval 70 ms MUSE ECG QT Interval 394 ms MUSE ECG QTC Interval 530 ms MUSE ECG P [place] 77 degrees MUSE ECG R [place] 79 degrees MUSE ECG T Wave [place] 100 degrees MUSE ECG Diagnosis Sinus tachycardia [...] 10:14 AM EDT) Only the most recent of18 resultswithin the time period is included. WBC Count 13.01(H) 3.70 - 10.30 10*3/uL LAB HEMATOLOGY METHOD 07/18/2024 11:08 AM EDT [facility] RBC Count 3.97 3.90 - 5.20 10*6/uL LAB HEMATOLOGY METHOD 07/18/2024 11:08 AM EDT [facility] HGB 11.5 11.2 - 15.7 g/dL LAB HEMATOLOGY METHOD 07/18/2024 11:08 AM EDT [facility] HCT 35.5 34.0 - 45.0 % LAB HEMATOLOGY METHOD 07/18/2024 11:08 AM EDT [facility] Platelet Count 582(H) 155 - 369 10*3/uL LAB HEMATOLOGY METHOD 07/18/2024 11:08 AM EDT [facility] MCV 89 79 - 98 fL LAB HEMATOLOGY METHOD 07/18/2024 11:08 AM EDT [facility] MCH 29.0 26.0 - 32.0 pg LAB HEMATOLOGY METHOD 07/18/2024 11:08 AM EDT [facility] MCHC 32.4 30.7 - 35.5 g/dL LAB HEMATOLOGY METHOD 07/18/2024 11:08 AM EDT [facility] RDW 14.9(H) 11.5 - 14.5 % LAB HEMATOLOGY METHOD 07/18/2024 11:08 AM EDT [facility] MPV 9.1 8.8 - 12.5 fL LAB HEMATOLOGY METHOD 07/18/2024 11:08 AM EDT [facility] nRBC 0.0 <=0.0 per 100 WBCs LAB HEMATOLOGY METHOD 07/18/2024 11:08 AM EDT [facility] Blood Venous blood specimen / Unknown Venipuncture / Unknown 07/18/2024 10:14 AM EDT 07/18/2024 10:14 AM EDT us Maite Austin MD LAB BLOOD ORDERABLES Final Resu lt [facility] [address] [place] [address] * (ABNORMAL) Basic Metabolic Panel, Plasma (07/18/2024 10:14 AM EDT) Only the most recent of11 resultswithin the time period is included. Glucose, Plasma 126(H) 74 - 99 mg/dL 07/18/2024 12:13 PM EDT [facility] BUN, Plasma 5(L) 7 - 21 mg/dL 07/18/2024 12:13 PM EDT [facility] Creatinine, Plasma 0.54(L) 0.60 - 1.10 mg/dL 07/18/2024 12:13 PM EDT [facility] BUN/Creatinine Ratio 9 07/18/2024 12:13 PM EDT [facility] Sodium, Plasma 137 136 - 145 mmol/L 07/18/2024 12:13 PM EDT [facility] Potassium, Plasma 2.5(LL) 3.6 - 4.9 mmol/L 07/18/2024 12:13 PM EDT [facility] Chloride, Plasma 95(L) 97 - 107 mmol/L 07/18/2024 12:13 PM EDT [facility] CO2, Plasma 29 22 - 29 mmol/L 07/18/2024 12:13 PM EDT [facility] Anion Gap 13 6 - 16 mmol/L 07/18/2024 12:13 PM EDT [facility] Total Calcium, Plasma 8.2(L) 8.9 - 10.2 mg/dL 07/18/2024 12:13 PM EDT [facility] eGFRcr 109.6 mL/min/1.7 3m*2 07/18/2024 12:13 PM EDT [facility] Comment:Reported eGFRcr in m L/min/1.73m2 is based the CKD-EPI 2020 equation that does not use a race coefficient. Blood Venous blood specimen / Unknown Venipuncture / Unknown 07/18/2024 10:14 AM EDT 07/18/2024 10:14 AM EDT us Maite Austin MD LAB BLOOD ORDERABLES Final Resu lt [facility] [address] [place] [address] * XR Chest 2 Views (07/18/2024 9:58 [...] 4:36 AM EDT) Only the most recent of17 resultswithin the time period is included. Anatomical [...] MD on 06/21/2024 7:27 AM Trinity Yousif WEDDING PLANNER IMG XR PROCEDURES Final Result * XR Abdomen 1 View (06/21/2024 4:36 AM EDT) Only the most recent of9 resultswithin the time period is included. Anatomical [...] 2:59 AM EDT) Only the most recent of33 resultswithin the time period is included. Magnesium, Plasma 1.7(L) 1.9 - 2.4 mg/dL 06/21/2024 3:52 AM EDT [facility] Blood Venous blood specimen / Unknown Venipuncture / Unknown 06/21/2024 2:59 AM EDT 06/21/2024 3:23 AM EDT Trinity Yousif WEDDING PLANNER LAB BLOOD ORDERABLES Final Res ult [facility] [address] [place] [address] * (ABNORMAL) Comprehensive metabolic panel (06/21/2024 2:59 AM EDT) Only the most recent of14 resultswithin the time period is included. Glucose, Plasma 94 74 - 99 mg/dL 06/21/2024 3:52 AM EDT [facility] BUN, Plasma 4(L) 7 - 21 mg/dL 06/21/2024 3:52 AM EDT [facility] Creatinine, Plasma 0.63 0.60 - 1.10 mg/dL 06/21/2024 3:52 AM EDT [facility] BUN/Creatinine Ratio 6 06/21/2024 3:52 AM EDT [facility] Sodium, Plasma 131(L) 136 - 145 mmol/L 06/21/2024 3:52 AM EDT [facility] Potassium, Plasma 3.9 3.6 - 4.9 mmol/L 06/21/2024 3:52 AM EDT [facility] Chloride, Plasma 98 97 - 107 mmol/L 06/21/2024 3:52 AM EDT [facility] CO2, Plasma 25 22 - 29 mmol/L 06/21/2024 3:52 AM EDT [facility] Anion Gap 8 6 - 16 mmol/L 06/21/2024 3:52 AM EDT [facility] Total Calcium, Plasma 8.1(L) 8.9 - 10.2 mg/dL 06/21/2024 3:52 AM EDT [facility] Total Protein 6.7 6.3 - 7.9 g/dL 06/21/2024 3:52 AM EDT [facility] Albumin, Plasma 2.5(L) 3.5 - 5.2 g/dL 06/21/2024 3:52 AM EDT [facility] AST, Plasma 31 10 - 35 U/L 06/21/2024 3:52 AM EDT [facility] ALT, Plasma 54(H) 10 - 35 U/L 06/21/2024 3:52 AM EDT [facility] Alkaline Phosphatase, Plasma 155(H) 35 - 104 U/L 06/21/2024 3:52 AM EDT [facility] Total Bilirubin, Plasma 0.2 0.2 - 1.1 mg/dL 06/21/2024 3:52 AM EDT [facility] eGFRcr 105.6 mL/min/1.7 3m*2 06/21/2024 3:52 AM EDT [facility] Comment:Reported eGFRcr in m L/min/1.73m2 is based the CKD-EPI 2020 equation that does not use a race coefficient. Blood Venous blood specimen / Unknown Venipuncture / Unknown 06/21/2024 2:59 AM EDT 06/21/2024 3:23 AM EDT us Trinity Yousif WEDDING PLANNER LAB BLOOD ORDERABLES Final Res ult [facility] [address] [place] [address] * N-Terminal Probnp, Plasma (06/20/2024 4:45 AM EDT) Only the most recent of6 resultswithin the time period is included. N-Terminal, PROBNP, Plasma 652 0 - 899 pg/mL 06/20/2024 6:04 AM EDT [facility] Blood Venous blood specimen / Unknown Venipuncture / Unknown 06/20/2024 4:45 AM EDT 06/20/2024 5:24 AM EDT us Dulce Alamo WEDDING PLANNER LAB BLOOD ORDERABLES Final R esult Performing Organization Address City/[facility] Co de Phone Number [facility] [address] [place] [address] * (ABNORMAL) POCT glucose meter (06/17/2024 8:09 PM EDT) Only the most recent of41 resultswithin the time period is included. POCT Glucose 145(H) 74 - 99 mg/dL [...] 06/17/2024 8:11 PM EDT [facility] Rotor Pilot ID Ian Vargasunuh [id number] 8:11 PM EDT [facility] Device ID [id number] 06/17/2024 8:11 PM EDT [facility] Specimen Type POC Capillary 06/17/2024 8:11 PM EDT [facility] Blood Capillary blood specimen / Unknown 06/17/2024 8:09 PM EDT 06/17/2024 8:11 PM EDT us Maite Austin MD LAB POINT OF CARE TE ST DOCKED DEVICE UNSOLICITED RESULTS Final Result Performing Organization Address [facility] Co de Phone Number [facility] [address] [place] [address] * SEND JOCELYNE MESSAGE (06/16/2024 8:21 PM EDT) Urine Urine specimen obtained by clean catch procedure / Unknown Non-blood Collection / Unknown 06/16/2024 8:21 PM EDT 06/16/2024 8:26 PM EDT us Trinity Yousif WEDDING PLANNER LAB URINE ORDERABLES Final Res ult Performing Organization Address City/[facility] Co de Phone Number [facility] [address] [place] [address] * Urine Francis Panel (06/16/2024 8:21 PM EDT) Extra Sent for Culture 06/16/2024 10:02 PM EDT [facility] Urine Urine specimen obtained by clean catch procedure / Unknown Non-blood Collection / Unknown 06/16/2024 8:21 PM EDT 06/16/2024 8:26 PM EDT [facility] LAB URINE ORDERABLES Final Res ult Performing Organization Address City/[facility]/ZIP Co de Phone Number [facility] [address] [place] [address] * Urinalysis Microscopic Examination (06/16/2024 8:21 PM EDT) Urine Urine specimen obtained by clean catch procedure / Unknown Non-blood Collection / Unknown 06/16/2024 8:21 PM EDT 06/16/2024 8:26 PM EDT Trinity S Yousif WEDDING PLANNER LAB URINE ORDERABLES Final Res ult Performing Organization Address City/[facility]/ZIP Co de Phone Number [facility] [address] [place] [address] * (ABNORMAL) Urinalysis with reflex microscopic (Culture NOT Included) (06/16/2024 8:21 PM EDT) Color, Urine Yellow LAB URINALYSIS - AUTOMATED METHOD 06/16/2024 8:55 PM EDT [facility] Clarity, Urine Clear LAB URINALYSIS - AUTOMATED METHOD 06/16/2024 8:55 PM EDT [facility] Spec [place], Urine 1.013 1.005 - 1.030 LAB URINALYSIS - AUTOMATED METHOD 06/16/2024 8:55 PM EDT [facility] pH, Urine 6.0 5.0 - 8.0 LAB URINALYSIS - AUTOMATED METHOD 06/16/2024 8:55 PM EDT [facility] Protein, Urine Negative Negative mg/dL LAB URINALYSIS - AUTOMATED METHOD 06/16/2024 8:55 PM EDT [facility] Glucose, Urine Negative Negative mg/dL LAB URINALYSIS - AUTOMATED METHOD 06/16/2024 8:55 PM EDT [facility] Ketones, Urine Negative Negative mg/dL LAB URINALYSIS - AUTOMATED METHOD 06/16/2024 8:55 PM EDT [facility] Blood, Urine Negative Negative LAB URINALYSIS - AUTOMATED METHOD 06/16/2024 8:55 PM EDT [facility] Bilirubin, Urine Negative Negative LAB URINALYSIS - AUTOMATED METHOD 06/16/2024 8:55 PM EDT [facility] Urobilinogen, Urine 0.2 0.2 to 1.0 mg/dL LAB URINALYSIS - AUTOMATED METHOD 06/16/2024 8:55 PM EDT [facility] Leukocytes, Urine Large(A) Negative LAB URINALYSIS - AUTOMATED METHOD 06/16/2024 8:55 PM EDT [facility] Nitrite, Urine Negative Negative LAB URINALYSIS - AUTOMATED METHOD 06/16/2024 8:55 PM EDT [facility] RBC, Urine 2 0 to 3 /HPF LAB URINALYSIS - AUTOMATED METHOD 06/16/2024 8:55 PM EDT [facility] WBC, Urine >50(A) 0 to 5 /HPF LAB URINALYSIS - AUTOMATED METHOD 06/16/2024 8:55 PM EDT [facility] Squamous Epithelial Cells 11 - 20(A) 0 to 5 /HPF LAB URINALYSIS - AUTOMATED METHOD 06/16/2024 8:55 PM EDT [facility] Hyaline Casts 0 - 2 0 to 5 /LPF LAB URINALYSIS - AUTOMATED METHOD 06/16/2024 8:55 PM EDT [facility] Bacteria, Urine Present Negative LAB URINALYSIS - AUTOMATED METHOD 06/16/2024 8:55 PM EDT [facility] Renal Tubular Cells Present Absent 06/16/2024 8:55 PM EDT [facility] Transitional Epithelial Cells Present Absent 06/16/2024 8:55 PM EDT [facility] Yeast (Budding and/or Pseudohyphae) Present(A) Absent 06/16/2024 8:55 PM EDT [facility] Urine Urine specimen obtained by clean catch procedure / Unknown Non-blood Collection / Unknown 06/16/2024 8:21 PM EDT 06/16/2024 8:26 PM EDT Narrative [facility] - 06/16/2024 8:55 PM EDT Performed by manual method Trinity Yousif APRN LAB URINE ORDERABLES Final Res ult Performing Organization Address [facility] Co de Phone Number [facility] [address] [place] [address] * Urine Culture (06/16/2024 8:21 PM EDT) Culture <10,000 CFU/mL Mixed urogenital, fecal, or skin quincy present. 06/18/2024 10:03 AM EDT [facility] Urine Urine specimen obtained by clean catch procedure / Unknown Non-blood Collection / Unknown 06/16/2024 8:21 PM EDT 06/16/2024 8:26 PM EDT Trinity Yousif APRN LAB MICROBIOLOGY - GENERAL ORD ERABLES Final Result Performing Organization Address [facility] Co de Phone Number [facility] [address] [place] [address] * XR Hip Right 2 or 3 [...] 4:49 AM EDT) Only the most recent of2 resultswithin the time period is included. Prealbumin, Plasma 13.3(L) 20.0 - 41.0 mg/dL 06/15/2024 8:27 AM EDT [facility] Blood Venous blood specimen / Unknown Venipuncture / Unknown 06/15/2024 4:49 AM EDT 06/15/2024 5:28 AM EDT us Trinity Yousif APRN LAB BLOOD ORDERABLES Final Res ult [facility] [address] [place] [address] * CT Head wo IV Contrast (06/14/2024 8:28 PM EDT) Anatomical Region Laterality Modality Head Computed Tomogra phy Impressions 06/15/2024 8:12 AM EDT No acute intracranial abnormality such as acute large cortical infarction or intracranial hemorrhage. CRITICAL RESULT: No. COMMUNICATION: Per this written report. Drafted by Calros Prabhakar MD on 06/15/2024 8:07 AM Final [...] LAB HEMATOLOGY METHOD 06/14/2024 1:14 AM EDT [facility] pCO2, Venous 46 37 - 52 mmHg LAB HEMATOLOGY METHOD 06/14/2024 1:14 AM EDT [facility] pO2, Venous 36 25 - 40 mmHg LAB HEMATOLOGY METHOD 06/14/2024 1:14 AM EDT [facility] SO2, Measured, Venous 66 65 - 80 % LAB HEMATOLOGY METHOD 06/14/2024 1:14 AM EDT [facility] Base Excess, Venous 4.7(H) -2.0 - 3.0 mmol/L LAB HEMATOLOGY METHOD 06/14/2024 1:14 AM EDT [facility] Bicarbonate, Calculated, Venous 30(H) 22 - 26 mmol/L LAB HEMATOLOGY METHOD 06/14/2024 1:14 AM EDT [facility] Hematocrit, Whole Blood 33.3(L) 34.0 - 45.0 % LAB HEMATOLOGY METHOD 06/14/2024 1:14 AM EDT [facility] Sodium, Whole Blood 129(L) 136 - 145 mmol/L LAB HEMATOLOGY METHOD 06/14/2024 1:14 AM EDT [facility] Potassium, Whole Blood 3.6 3.6 - 4.9 mmol/L LAB HEMATOLOGY METHOD 06/14/2024 1:14 AM EDT [facility] Chloride, Whole Blood 93(L) 97 - 107 mmol/L LAB HEMATOLOGY METHOD 06/14/2024 1:14 AM EDT [facility] Glucose, Whole Blood 106(H) 74 - 99 mg/dL LAB HEMATOLOGY METHOD 06/14/2024 1:14 AM EDT [facility] Lactate, Venous, Whole Blood 0.7 0.5 - 2.2 mmol/L LAB HEMATOLOGY METHOD 06/14/2024 1:14 AM EDT [facility] Ionized Calcium, Whole Blood 4.6 4.6 - 5.1 mg/dL LAB HEMATOLOGY METHOD 06/14/2024 1:14 AM EDT [facility] Blood Venous blood specimen / Unknown (Central Line) Existing Catheter / Unknown 06/14/2024 12:58 AM EDT 06/14/2024 1:13 AM EDT us Maite Austin MD LAB BLOOD ORDERABLES Final Resu lt [facility] [address] [place] [address] * (ABNORMAL) CBC and differential (06/12/2024 3:24 AM EDT) Only the most recent of16 resultswithin the time period is included. WBC Count 10.53(H) 3.70 - 10.30 10*3/uL LAB HEMATOLOGY METHOD 06/12/2024 3:43 AM EDT [facility] RBC Count 3.17(L) 3.90 - 5.20 10*6/uL LAB HEMATOLOGY METHOD 06/12/2024 3:43 AM EDT [facility] HGB 9.3(L) 11.2 - 15.7 g/dL LAB HEMATOLOGY METHOD 06/12/2024 3:43 AM EDT [facility] HCT 29.4(L) 34.0 - 45.0 % LAB HEMATOLOGY METHOD 06/12/2024 3:43 AM EDT [facility] Platelet Count 393(H) 155 - 369 10*3/uL LAB HEMATOLOGY METHOD 06/12/2024 3:43 AM EDT [facility] MCV 93 79 - 98 fL LAB HEMATOLOGY METHOD 06/12/2024 3:43 AM EDT [facility] MCH 29.3 26.0 - 32.0 pg LAB HEMATOLOGY METHOD 06/12/2024 3:43 AM EDT [facility] MCHC 31.6 30.7 - 35.5 g/dL LAB HEMATOLOGY METHOD 06/12/2024 3:43 AM EDT [facility] RDW 15.2(H) 11.5 - 14.5 % LAB HEMATOLOGY METHOD 06/12/2024 3:43 AM EDT [facility] MPV 9.1 8.8 - 12.5 fL LAB HEMATOLOGY METHOD 06/12/2024 3:43 AM EDT [facility] nRBC 0.0 <=0.0 per 100 WBCs LAB HEMATOLOGY METHOD 06/12/2024 3:43 AM EDT [facility] Differential Type Automated LAB HEMATOLOGY METHOD 06/12/2024 3:43 AM EDT [facility] Neutrophils % 54 % LAB HEMATOLOGY METHOD 06/12/2024 3:43 AM EDT [facility] Lymphocytes % 28 % LAB HEMATOLOGY METHOD 06/12/2024 3:43 AM EDT [facility] Monocytes % 11 % LAB HEMATOLOGY METHOD 06/12/2024 3:43 AM EDT [facility] Eosinophils % 2 % LAB HEMATOLOGY METHOD 06/12/2024 3:43 AM EDT [facility] Basophils % 1 % LAB HEMATOLOGY METHOD 06/12/2024 3:43 AM EDT [facility] Immature Granulocytes % 4 % LAB HEMATOLOGY METHOD 06/12/2024 3:43 AM EDT [facility] Neutrophils Absolute 5.65 1.60 - 6.10 10*3/uL LAB HEMATOLOGY METHOD 06/12/2024 3:43 AM EDT [facility] Lymphocytes Absolute 2.99 1.20 - 3.90 10*3/uL LAB HEMATOLOGY METHOD 06/12/2024 3:43 AM EDT [facility] Monocytes Absolute 1.11(H) 0.30 - 0.90 10*3/uL LAB HEMATOLOGY METHOD 06/12/2024 3:43 AM EDT [facility] Eosinophils Absolute 0.25 0.00 - 0.50 10*3/uL LAB HEMATOLOGY METHOD 06/12/2024 3:43 AM EDT [facility] Basophils Absolute 0.13(H) 0.00 - 0.10 10*3/uL LAB HEMATOLOGY METHOD 06/12/2024 3:43 AM EDT [facility] Immature Granulocytes Absolute 0.40(H) 0.00 - 0.06 10*3/uL LAB HEMATOLOGY METHOD 06/12/2024 3:43 AM EDT [facility] Blood Blood sample taken from central line / Unknown (Central Line) Existing Catheter / Unknown 06/12/2024 3:24 AM EDT 06/12/2024 3:34 AM EDT Narrative [facility] - 06/12/2024 3:43 AM EDT Therapeutic decision making should be based on absolute values, rather than percentages. Uriah PHILLIP LAB BLOOD ORDERABLES Final Result [facility] [address] [place] [address] * (ABNORMAL) WBC Differential (06/11/2024 4:32 AM EDT) Differential Type Automated LAB HEMATOLOGY METHOD 06/11/2024 8:40 AM EDT [facility] Neutrophils % 63 % LAB HEMATOLOGY METHOD 06/11/2024 8:40 AM EDT [facility] Lymphocytes % 23 % LAB HEMATOLOGY METHOD 06/11/2024 8:40 AM EDT [facility] Monocytes % 8 % LAB HEMATOLOGY METHOD 06/11/2024 8:40 AM EDT [facility] Eosinophils % 2 % LAB HEMATOLOGY METHOD 06/11/2024 8:40 AM EDT [facility] Basophils % 1 % LAB HEMATOLOGY METHOD 06/11/2024 8:40 AM EDT [facility] Immature Granulocytes % 3 % LAB HEMATOLOGY METHOD 06/11/2024 8:40 AM EDT [facility] Immature Granulocytes Absolute 0.43(H) 0.00 - 0.06 10*3/uL LAB HEMATOLOGY METHOD 06/11/2024 8:40 AM EDT [facility] Neutrophils Absolute 10.15(H) 1.60 - 6.10 10*3/uL LAB HEMATOLOGY METHOD 06/11/2024 8:40 AM EDT [facility] Lymphocytes Absolute 3.53 1.20 - 3.90 10*3/uL LAB HEMATOLOGY METHOD 06/11/2024 8:40 AM EDT [facility] Monocytes Absolute 1.18(H) 0.30 - 0.90 10*3/uL LAB HEMATOLOGY METHOD 06/11/2024 8:40 AM EDT [facility] Basophils Absolute 0.15(H) 0.00 - 0.10 10*3/uL LAB HEMATOLOGY METHOD 06/11/2024 8:40 AM EDT [facility] Eosinophils Absolute 0.25 0.00 - 0.50 10*3/uL LAB HEMATOLOGY METHOD 06/11/2024 8:40 AM EDT [facility] Blood Venous blood specimen / Unknown 06/11/2024 4:32 AM EDT 06/11/2024 4:32 AM EDT us Uriah PHILLIP LAB BLOOD ORDERABLES Final Result Performing Organization Address City/[facility]/ZIP Co de Phone Number [facility] [address] [place] [address] * Lavender Top (06/11/2024 4:32 AM EDT) Extra Hold for add-ons 06/11/2024 7:02 AM EDT [facility] Comment:Auto resulted. Blood Venous blood specimen / Unknown 06/11/2024 4:32 AM EDT 06/11/2024 4:32 AM EDT us Maite Austin MD LAB BLOOD ORDERABLES Final Resu lt Performing Organization Address [facility] Co de Phone Number [facility] [address] [place] [address] * Light Green Top (06/11/2024 4:32 AM EDT) Extra Hold for add-ons 06/11/2024 7:02 AM EDT [facility] Comment:Auto resulted. Blood Venous blood specimen / Unknown 06/11/2024 4:32 AM EDT 06/11/2024 4:32 AM EDT us Maite Austin MD LAB BLOOD ORDERABLES Final Resu lt Performing Organization Address [facility] Co de Phone Number [facility] [address] [place] [address] * (ABNORMAL) Procalcitonin (06/11/2024 4:32 AM EDT) Only the most recent of2 resultswithin the time period is included. Procalcitonin, Plasma 0.10(H) <0.09 ng/mL 06/11/2024 8:43 AM EDT [facility] Blood Venous blood specimen / Unknown 06/11/2024 4:32 AM EDT 06/11/2024 4:32 AM EDT Narrative [facility] - 06/11/2024 8:43 AM EDT [...] predict 28 day mortality risk. Please consult [email or web address]-[email or web address].[email or web address] for more information. Test performed at [facility] Laboratory. us Uriah PHILLIP LAB BLOOD ORDERABLES Final Result [facility] [address] [place] [address] * (ABNORMAL) Body Fluid Cell Count w/ Diff (06/04/2024 10:17 AM EDT) Color, Body fluid Brown LAB HEMATOLOGY METHOD 06/04/2024 5:36 PM EDT [facility] Appearance, Body fluid Cloudy(A) LAB HEMATOLOGY METHOD 06/04/2024 5:36 PM EDT [facility] Volume, Body fluid 5.0 cc LAB HEMATOLOGY METHOD 06/04/2024 5:36 PM EDT [facility] Fluid Container Specimen received in miscellaneous container LAB HEMATOLOGY METHOD 06/04/2024 5:36 PM EDT [facility] Red Blood Cell Count, Body fluid LAB HEMATOLOGY METHOD 06/04/2024 5:36 PM EDT [facility] Comment:Unable to quantitate due to cell deterioration. Total Nucleated Cell Count, Body fluid LAB HEMATOLOGY METHOD 06/04/2024 5:36 PM EDT [facility] Comment:Unable to quantitate due to cell deterioration. Neutrophils %, Body fluid LAB HEMATOLOGY METHOD 06/04/2024 5:36 PM EDT [facility] Comment:Unable to quantitate due to cell deterioration. Lymphocytes %, Body fluid LAB HEMATOLOGY METHOD 06/04/2024 5:36 PM EDT [facility] Comment:Unable to quantitate due to cell deterioration. Monocytes/Macr ophages %, Body fluid LAB HEMATOLOGY METHOD 06/04/2024 5:36 PM EDT [facility] Comment:Unable to quantitate due to cell deterioration. Eosinophils %, Body fluid LAB HEMATOLOGY METHOD 06/04/2024 5:36 PM EDT [facility] Comment:Unable to quantitate due to cell deterioration. Lining/Mesothe lial Cells %, Body fluid LAB HEMATOLOGY METHOD 06/04/2024 5:36 PM EDT [facility] Comment:Unable to quantitate due to cell deterioration. Neutrophils Absolute (PMN), Body fluid LAB HEMATOLOGY METHOD 06/04/2024 5:36 PM EDT [facility] Comment:Unable to quantitate due to cell deterioration. Lymphocytes Absolute, Body fluid LAB HEMATOLOGY METHOD 06/04/2024 5:36 PM EDT [facility] Comment:Unable to quantitate due to cell deterioration. Monocytes/Macr ophages Absolute, Body fluid LAB HEMATOLOGY METHOD 06/04/2024 5:36 PM EDT [facility] Comment:Unable to quantitate due to cell deterioration. Eosinophils Absolute, Body fluid LAB HEMATOLOGY METHOD 06/04/2024 5:36 PM EDT [facility] Comment:Unable to quantitate due to cell deterioration. Basophils Absolute, Body fluid LAB HEMATOLOGY METHOD 06/04/2024 5:36 PM EDT [facility] Comment:Unable to quantitate due to cell deterioration. Lining/Mesothe lial Cells Absolute, Body fluid LAB HEMATOLOGY METHOD 06/04/2024 5:36 PM EDT [facility] Comment:Unable to quantitate due to cell deterioration. Basophils %, Body fluid LAB HEMATOLOGY METHOD 06/04/2024 5:36 PM EDT [facility] Comment:Unable to quantitate due to cell deterioration. Body Fluid Topography unknown / Unknown Non-blood Collection / Unknown 06/04/2024 10:17 AM EDT 06/04/2024 10:51 AM EDT Maite Austin MD LAB BODY FLUIDS AND STOOLS ORDERABLES NO SPECIMEN TYPE/SOURCE Final Result Performing Organization Address [facility] Co de Phone Number [facility] [address] [place] [address] * AFB Culture, Non Respiratory Source and Acid Fast Stain (06/04/2024 10:17 AM EDT) AFB Culture No Mycobacterial Growth at 6 Weeks 07/17/2024 11:29 AM EDT [facility] Acid Fast Stain No acid fast bacilli seen 07/17/2024 11:29 AM EDT [facility] Body Fluid Topography unknown / Unknown Non-blood Collection / Unknown 06/04/2024 10:17 AM EDT 06/04/2024 10:55 AM EDT Maite Austin MD LAB MICROBIOLOGY - GENERAL ORDE RABLES Final Result Performing Organization Address City/[facility]/ZIP Co de Phone Number [facility] [address] [place] [address] * (ABNORMAL) Body Fluid Culture and Gram Stain (06/04/2024 10:17 AM EDT) Culture No growth at day 4 2024 7:41 AM EDT [facility] Gram Stain Result No intact cells seen(A) 06/07/2024 7:41 AM EDT [facility] Gram Stain Result No polymorphonuclear leukocytes seen(A) 06/07/2024 7:41 AM EDT [facility] Gram Stain Result No organisms seen(A) 06/07/2024 7:41 AM EDT [facility] Body Fluid Topography unknown / Unknown Non-blood Collection / Unknown 06/04/2024 10:17 AM EDT 06/04/2024 10:55 AM EDT Maite Austin MD LAB MICROBIOLOGY - GENERAL ORDE RABIRA Final Result [facility] [address] [place] [address] * CT Guided Drain Placement Peritoneal or [...] the paracolic gutter presenting for drainage PHYSICIANS: button sewing machine operator: MAYTE ELMORE MD Secondary mobile crane operator: None RAD DOSE: Total DLP 413 [...] the paracolic gutter presenting for drainage PHYSICIANS: button sewing machine operator: MAYTE ELMORE MD Secondary mobile crane operator: Bry RAD DOSE: Total DLP 413 [...] well, and was transferred back to the recoveryarea in good condition. Approximately 10 cc of [...] MD on 06/04/2024 12:43 PM Lorena Phillips [employer] IM[facility] CT PROCEDURES Final Resu lt * (ABNORMAL) Renal Function Panel, Plasma (06/02/2024 1:02 AM EDT) Only the most recent of16 resultswithin the time period is included. Glucose, Plasma 507(HH) 74 - 99 mg/dL 06/02/2024 1:47 AM EDT [facility] BUN, Plasma 11 7 - 21 mg/dL 06/02/2024 1:47 AM EDT [facility] Creatinine, Plasma 0.60 0.60 - 1.10 mg/dL 06/02/2024 1:47 AM EDT [facility] BUN/Creatinine Ratio 18 06/02/2024 1:47 AM EDT [facility] Sodium, Plasma 125(L) 136 - 145 mmol/L 06/02/2024 1:47 AM EDT [facility] Potassium, Plasma 4.8 3.6 - 4.9 mmol/L 06/02/2024 1:47 AM EDT [facility] Chloride, Plasma 93(L) 97 - 107 mmol/L 06/02/2024 1:47 AM EDT [facility] CO2, Plasma 20(L) 22 - 29 mmol/L 06/02/2024 1:47 AM EDT [facility] Anion Gap 12 6 - 16 mmol/L 06/02/2024 1:47 AM EDT [facility] Total Calcium, Plasma 7.9(L) 8.9 - 10.2 mg/dL 06/02/2024 1:47 AM EDT [facility] Phosphorus, Plasma 5.8(H) 2.5 - 4.5 mg/dL 06/02/2024 1:47 AM EDT [facility] Albumin, Plasma 2.2(L) 3.5 - 5.2 g/dL 06/02/2024 1:47 AM EDT [facility] eGFRcr 106.8 mL/min/1.7 3m*2 06/02/2024 1:47 AM EDT [facility] Comment:Reported eGFRcr in m L/min/1.73m2 is based the CKD-EPI 2020 equation that does not use a race coefficient. Blood Venous blood specimen / Unknown Venipuncture / Unknown 06/02/2024 1:02 AM EDT 06/02/2024 1:16 AM EDT us Lora Llanes [employer] LAB BLOOD ORDERABLES Final Result Performing Organization Address City/[facility]/ZIP Co de Phone Number [facility] [address] [place] [address] * Lactate, venous (06/01/2024 8:42 AM EDT) [facility] Signature Lactate, Venous, Whole Blood 0.9 0.5 - 2.2 mmol/L LAB HEMATOLOGY METHOD 06/01/2024 9:01 AM EDT [facility] Blood Venous blood specimen / Unknown Venipuncture / Unknown 06/01/2024 8:42 AM EDT 06/01/2024 8:59 AM EDT us Shola Sheridan [employer] LAB BLOOD ORDERABLES Final R esult [facility] [address] [place] [address] * [place] NEGATIVE PRESSURE WOUND THERAPY DME >50 SQ [...] Result * Phosphorus (05/29/2024 7:00 AM EDT) Pathologist [facility] Phosphorus, Plasma 4.1 2.5 - 4.5 mg/dL 05/29/2024 7:43 AM EDT [facility] Blood Venous blood specimen / Unknown Venipuncture / Unknown 05/29/2024 7:00 AM EDT 05/29/2024 7:06 AM EDT us Maite Austin MD LAB BLOOD ORDERABLES Final Resu lt [facility] [address] [place] [address] * Morphology (05/29/2024 5:35 AM EDT) Only the most recent of10 resultswithin the time period is included. Polychromasia Slight LAB HEMATOLOGY METHOD 05/29/2024 8:34 AM EDT [facility] RBC Morphology Slide Reviewed LAB HEMATOLOGY METHOD 05/29/2024 8:34 AM EDT [facility] Platelet Estimate Platelet smear estimate consistent with automated count LAB HEMATOLOGY METHOD 05/29/2024 8:34 AM EDT [facility] Blood Blood sample taken from central line / Unknown Venipuncture / Unknown 05/29/2024 5:35 AM EDT 05/29/2024 5:56 AM EDT us Maite Austin MD LAB BLOOD ORDERABLES Final Resu lt [facility] [address] [place] [address] * (ABNORMAL) Manual Differential (05/29/2024 5:35 AM EDT) Only the most recent of10 resultswithin the time period is included. Blasts % 0 % LAB HEMATOLOGY METHOD 05/29/2024 8:34 AM EDT [facility] Promyelocytes % 0 % LAB HEMATOLOGY METHOD 05/29/2024 8:34 AM EDT [facility] Myelocytes % 4 % LAB HEMATOLOGY METHOD 05/29/2024 8:34 AM EDT [facility] Metamyelocytes % 5 % LAB HEMATOLOGY METHOD 05/29/2024 8:34 AM EDT [facility] Neutrophils % 82 % LAB HEMATOLOGY METHOD 05/29/2024 8:34 AM EDT [facility] Lymphocytes % 3 % LAB HEMATOLOGY METHOD 05/29/2024 8:34 AM EDT [facility] Reactive Lymphocytes % 1 % LAB HEMATOLOGY METHOD 05/29/2024 8:34 AM EDT [facility] Monocytes % 3 % LAB HEMATOLOGY METHOD 05/29/2024 8:34 AM EDT [facility] Eosinophils % 2 % LAB HEMATOLOGY METHOD 05/29/2024 8:34 AM EDT [facility] Basophils % 0 % LAB HEMATOLOGY METHOD 05/29/2024 8:34 AM EDT [facility] Blasts Absolute 0.00 10*3/UL LAB HEMATOLOGY METHOD 05/29/2024 8:34 AM EDT [facility] Promyelocytes Absolute 0.00 10*3/uL LAB HEMATOLOGY METHOD 05/29/2024 8:34 AM EDT [facility] Myelocytes Absolute 0.90 10*3/uL LAB HEMATOLOGY METHOD 05/29/2024 8:34 AM EDT [facility] Metamyelocytes Absolute 1.13 10*3/uL LAB HEMATOLOGY METHOD 05/29/2024 8:34 AM EDT [facility] Neutrophils Absolute 18.47(H) 1.60 - 6.10 10*3/uL LAB HEMATOLOGY METHOD 05/29/2024 8:34 AM EDT [facility] Lymphocytes Absolute 0.68(L) 1.20 - 3.90 10*3/uL LAB HEMATOLOGY METHOD 05/29/2024 8:34 AM EDT [facility] Reactive Lymphocytes Absolute 0.23 10*3/uL LAB HEMATOLOGY METHOD 05/29/2024 8:34 AM EDT [facility] Monocytes Absolute 0.68 0.30 - 0.90 10*3/uL LAB HEMATOLOGY METHOD 05/29/2024 8:34 AM EDT [facility] Eosinophils Absolute 0.45 0.00 - 0.50 10*3/uL LAB HEMATOLOGY METHOD 05/29/2024 8:34 AM EDT [facility] Basophils Absolute 0.00 0.00 - 0.10 10*3/uL LAB HEMATOLOGY METHOD 05/29/2024 8:34 AM EDT [facility] Blood Blood sample taken from central line / Unknown Venipuncture / Unknown 05/29/2024 5:35 AM EDT 05/29/2024 5:56 AM EDT us Maite Austin MD LAB BLOOD ORDERABLES Final Resu lt [facility] [address] [place] [address] * [place] NEGATIVE PRESSURE WOUND THERAPY DME >50 SQ [...] IN CLINIC/BEDSIDE ORDERABLES Fi nal Result * [place] CRITICAL CARE, ADDL 30 MIN (05/28/2024 11:39 [...] IN CLINIC/BEDSIDE ORDERABLES Fi nal Result * [place] CRITICAL CARE, E/M 30-74 MINUTES (05/27/2024 11:12 [...] with the findings and plan as documented. Result [facility] Jose Martin Caden LozanoKymberly IN CLINIC/BEDSIDE ORDERABLES F inal Result * Transfuse RBC (05/26/2024 6:44 PM EDT) Only the most recent of2 resultswithin the time period is included. Maite Austin MD BLOOD TRANSFUSION ORDERABLES Fi nal Result * [place] CRITICAL CARE, ADDL 30 MIN (05/26/2024 3:17 [...] 3:12 PM EDT) Only the most recent of2 resultswithin the time period is included. ABO/Rh [...] TEST ORDERABLES Final Result Performing Organization Address City/[facility]/ZIP Co de Phone Number BLOOD BANK [address] * Prepare Leukocyte Reduced RBC: 1 Units (05/26/2024 2:21 PM EDT) Only the most recent of2 resultswithin the time period is included. Product Code [id number] CH BLOO D BANK Dispense Status Transfused BLOOD BANK Blood Expiration Date [id number] BLOOD BANK Unit Number [id number] CH B LOOD BANK Product Blood Type 7300 BLOOD BANK Blood Type B+ BLOOD BANK Crossmatch Compatible BLOOD BANK Other Maite Austin MD BLOOD BANK PRODUCT ORDERABLES F inal Result Performing Organization Address [facility] Co de Phone Number BLOOD BANK [address] [place] [address] * (ABNORMAL) Hemoglobin and Hematocrit, Blood (05/25/2024 8:32 PM EDT) Only the most recent of4 resultswithin the time period is included. HGB 7.2(L) 11.2 - 15.7 g/dL LAB HEMATOLOGY METHOD 05/25/2024 8:51 PM EDT [facility] HCT 23.1(L) 34.0 - 45.0 % LAB HEMATOLOGY METHOD 05/25/2024 8:51 PM EDT [facility] Blood Arterial blood specimen / Unknown Venipuncture / Unknown 05/25/2024 8:32 PM EDT 05/25/2024 8:45 PM EDT Lora Llanes APRN LAB BLOOD ORDERABLES Final Result Performing Organization Address City/[facility]/ZIP Co de Phone Number [facility] [address] [place] [address] * [place] CRITICAL CARE, E/M 30-74 MINUTES (05/24/2024 11:04 [...] 7:54 PM EDT) Only the most recent of2 resultswithin the time period is included. pH, Arterial 7.29(L) 7.35 - 7.45 LAB HEMATOLOGY METHOD 05/23/2024 8:04 PM EDT [facility] pCO2, Arterial 44 35 - 48 mmHg LAB HEMATOLOGY METHOD 05/23/2024 8:04 PM EDT [facility] pO2, Arterial 182(H) 83 - 108 mmHg LAB HEMATOLOGY METHOD 05/23/2024 8:04 PM EDT [facility] SO2, Measured, Arterial 100(H) 94 - 98 % LAB HEMATOLOGY METHOD 05/23/2024 8:04 PM EDT [facility] Base Excess, Arterial -5.1(L) -2.0 - 3.0 mmol/L LAB HEMATOLOGY METHOD 05/23/2024 8:04 PM EDT [facility] Bicarbonate, Calculated, Arterial 21(L) 22 - 26 mmol/L LAB HEMATOLOGY METHOD 05/23/2024 8:04 PM EDT [facility] Hematocrit, Whole Blood 34.4 34.0 - 45.0 % LAB HEMATOLOGY METHOD 05/23/2024 8:04 PM EDT [facility] Sodium, Whole Blood 133(L) 136 - 145 mmol/L LAB HEMATOLOGY METHOD 05/23/2024 8:04 PM EDT [facility] Potassium, Whole Blood 5.0(H) 3.6 - 4.9 mmol/L LAB HEMATOLOGY METHOD 05/23/2024 8:04 PM EDT [facility] Chloride, Whole Blood 107 97 - 107 mmol/L LAB HEMATOLOGY METHOD 05/23/2024 8:04 PM EDT [facility] Glucose, Whole Blood 266(H) 74 - 99 mg/dL LAB HEMATOLOGY METHOD 05/23/2024 8:04 PM EDT [facility] Ionized Calcium, Whole Blood 4.2(L) 4.6 - 5.1 mg/dL LAB HEMATOLOGY METHOD 05/23/2024 8:04 PM EDT [facility] Lactate, Arterial, Whole Blood 2.0(H) 0.5 - 1.6 mmol/L LAB HEMATOLOGY METHOD 05/23/2024 8:04 PM EDT [facility] Blood Arterial blood specimen / Unknown Arterial Puncture / Unknown 05/23/2024 7:54 PM EDT 05/23/2024 8:02 PM EDT us Maite Austin MD LAB BLOOD ORDERABLES Final Resu lt [facility] [address] [place] [address] * Surgical Pathology Exam (05/23/2024 4:09 PM EDT) Case Report Surgical Pathology Case: [id number] Authorizing Provider: Lidia Troncoso MD Collected: 05/23/2024 1609 Ordering Location: [facility] Received: 05/24/2024 0749 Pathologist: Elvia Morgan MD Specimen: Other (specify site), Left Colon (fresh for permanent) 05/28/2024 11:11 AM EDT [facility] Final Diagnosis LARGE INTESTINE. 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 - INVOLVEMENT OF ONE RESECTION MARGIN. 05/28/2024 11:11 AM T [facility] at 1111 EDT Clinical Information Colon perforation (CMS/HCC) [K63.1] s/p 4vCABG on 05/06/24. 05/28/2024 11:11 AM T [facility] Gross Description A. LEFT COLON (FRESH FOR PERMANENT) The specimens received fresh, placed in formalin labeled [facility] colon and consists of a 33 cm [...] x 7.8 cm unremarkable mesentery is submitted. Medical Language Specialist sections are submitted as follows: A1: Resection margin A2: Opposite resection margin A3-A4: Area of defect, full-thickness A5: Area of fibrosis and stricturing A6: Area of fibrosis and stricturing A7: Area of fibrosis and stricturing A8: Uninvolved colonic mucosa A9: Junction between involved in uninvolved mucosa A10: Two lymph node candidates, entirely submitted Cold Time: 2h 41m 05/28/2024 11:11 AM [facility] Note: A resident was involved in the service. I attest I examined the relevant preparations for the specimens and confirmed the diagnosis or interpretation. 05/28/2024 11:11 AM [facility] Tissue Topography unknown / Unknown 05/23/2024 4:09 PM EDT 05/24/2024 7:49 AM EDT Comment:Pre-op diagnosis: Colon perforation (CMS/HCC) [K63.1] us Lidia Troncoso MD LAB PATHOLOGY ORDERABLES Final Result [facility] [address] [place] [address] * PB ANESTHESIA NON-TIMED PROCEDURE PLACEHOLDER (05/23/2024 [...] by tape. Seldinger technique used Staffing Performed: MEDICAL AND HEALTH SERVICES MANAGER MEDICAL AND HEALTH SERVICES MANAGER: Mayda Bhatti CRNA us Roslyn Villanueva MD [...] MD ANESTHESIA ORDERABLES Final Re sult * KS AN ELECTIVE ENDOTRACHEAL AIRWAY, PB ANESTHESIA PLACEHOLDER (05/23/2024 1:43 PM EDT) Mayda Vizcaino CRNA - 05/23/2024 1:43 PM EDT Mayda Bhatti CRNA 05/23/2024 2:13 PM Airway Date/Time: 05/23/2024 1:43 PM Reason: elective Airway not difficult General Information and Staff Patient location during procedure: OR MEDICAL AND HEALTH SERVICES MANAGER: Mayda Bhatti CRNA Other anesthesia staff: Db [...] sult * Protime-INR (05/23/2024 12:41 PM EDT) Prothrombin Time 13.6 12.0 - 14.3 sec LAB COAGULATION METHOD 05/23/2024 1:34 PM EDT [facility] INR 1.0 0.9 - 1.1 LAB COAGULATION METHOD 05/23/2024 1:34 PM EDT [facility] Blood Venous blood specimen / Unknown Venipuncture / Unknown 05/23/2024 12:41 PM EDT 05/23/2024 1:04 PM EDT Narrative [facility] - 05/23/2024 1:34 PM EDT [...] MD LAB BLOOD ORDERABLES Final Resu lt [facility] [address] [place] [address] * (ABNORMAL) Ionized calcium, whole blood (05/23/2024 11:40 AM EDT) Only the most recent of8 resultswithin the time period is included. Ionized Calcium, Whole Blood 4.3(L) 4.6 - 5.1 mg/dL LAB HEMATOLOGY METHOD 05/23/2024 11:48 AM EDT [facility] Blood Venous blood specimen / Unknown Venipuncture / Unknown 05/23/2024 11:40 AM EDT 05/23/2024 11:47 AM EDT us Reyna Obregon [employer] LAB BLOOD ORDERABLES Namrata l Result Performing Organization Address City/[facility]/ZIP Co de Phone Number [facility] [address] [place] [address] * Blood Culture (Aerobic/Anaerobet Set) (05/23/2024 10:20 AM EDT) Pathologist [facility] Culture No growth at day 5 ELI 05/28/2024 11:01 AM EDT [facility] Blood Venous blood specimen / Unknown Venipuncture / Unknown 05/23/2024 10:20 AM EDT 05/23/2024 10:28 AM EDT us Maite Austin MD LAB MICROBIOLOGY - [facility]AL [facility] Final Result Performing Organization Address [facility] [place] [address] * CT Abdomen Pelvis wo IV Contrast [...] MD on 05/22/2024 6:08 PM Reyna Obregon [facility] [employer] IMG CT PROCEDURES Final R esult from Last 3 Months Insurance [facility] MEDICAID Advance Directives * Full Code (Latest [...] 12:06 PM 05/06/2024 8:27 PM Care Teams Pharmacy Manager Relationship Specialty Start Date End Date Champ Quiroz MD [address] [address] PCP - General Internal Medicine 06/29/24
--- OUTSIDE RECORDS SUMMARY | 2024-08-21 14:40 | XMS_ITS | Encounter Summary ---
Author Organization Healthcare Address [address] [place] [address] Care Team Providers Care Shredder Tender Peat Name Role Phone Pcp, No Primary Care Provider Unavailabl e Encounter Details Date Type Department Care Team (Late st Contact Info) Description 06/25/2024 Telephone [facility] General Surgery [address], 1st [place] [address] Katharine Urbano RN TRAUMA & [...] any time in the past 12 m [facility], were you homeless or [...] Description 10/30/2024 10:45 AM EDT Office Visit [facility] General Surgery [address], 1[address] [place] [address] Lidia Troncoso MD [address] [place] [address] documented as of this encounter [...] documented as of this encounter Care Teams Shredder Tender Peat Relationship Specialty Start Date End Date Pcp, [place] [address] PCP - General Family Medicine 04/04/24 06/28/24 documented as of this encounter
--- OUTSIDE RECORDS SUMMARY | 2024-08-21 14:40 | XMS_ITS | Encounter Summary ---
Author Organization Healthcare Address [address] [place] [address] Care Team Providers Care Adult High School Instructor Name Role Phone Pcp, No Primary Care Provider Unavailabl e Reason for Visit * Reason Onset Date Comments HCN Clinical Concern/Question 06/26/2024 Encounter Details Date Type Department Care Team (Late st Contact Info) Description 06/26/2024 Telephone [facility] General Surgery [address], 1[address] [place] [address] Judy Mancuso MD [address] [place] [address] HCN Clinical Concern/Question Social History [...] the past 12 m [facility], were you homeless or living in a [...] to talk to nurse Best contact number: [phone] (home) Optimal time of day to reach caller: ANYTIME Additional comments/information from caller: None Note: Please do not reply to this message. Follow-up communication and further actions as a result of this message need to be communicated with the patient directly, if the patient is not active onMyChart. If the patient is active on MyChart, they will receive notification of the communication/outcome via [employer]il[employer]. documented in this encounter Plan of Treatment Upcoming Encounters Date Type Department Care Team (Late st Contact Info) Description 10/30/2024 10:45 AM EDT Office Visit [facility] General Surgery [address], [address] [place] [address] Lidia Troncoso MD [address] [place] [address] documented as of this encounter [...] documented as of this encounter Care Teams Adult High School Instructor Relationship Specialty Start Date End Date Pcp, [place] [address] PCP - General Family Medicine 04/04/24 06/28/24 documented as of this encounter
--- OUTSIDE RECORDS SUMMARY | 2024-08-21 14:40 | XMS_ITS | Encounter Summary ---
Author Organization Healthcare Address [address] [place] [address] Care Team Providers Care Cylinder Head Assembler Name Role Phone Pcp, No Primary Care Provider Champ Butler MD Primary Care Provider + [phone] Encounter Details Date Type Department Care Team (Late st Contact Info) Description 05/29/2024 Results Follow-Up Colorectal Surgery [address] [place] [address] Lidia Troncoso MD [address] [place] [address] Social History Tobacco Use Types Packs/Day Years [...] time in the past 12 m [facility], were you homeless or living in a [...] In the past 12 months has e [employer], [employer], oil, or water [employer] threatened to shut off services in your [...] all 06/29/2024 2:40 PM EDT Marva Shaw Patient Health Questionnaire -9 Score 1 06/29/2024 [...] Description 10/30/2024 10:45 AM EDT Office Visit [facility] General Surgery [address], [address] [place] [address] Lidia Troncoso MD [address] [place] [address] documented as of this encounter [...] documented as of this encounter Care Teams Cylinder Head Assembler Relationship Specialty Start Date End Date Pcp, No [address] [place] [address] PCP - General Family Medicine 04/04/24 06/28/24 Champ Quiroz MD [address] [place] [address] PCP - General Internal Medicine 06/29/24 documented as of this encounter
--- OUTSIDE RECORDS SUMMARY | 2024-08-21 14:40 | XMS_ITS | Encounter Summary ---
Author Organization Healthcare Address [address] [place] [address] Care Team Providers Care Heel Seat Filler Name Role Phone Champ Quiroz MD Primary Care Provider [phone] Encounter Details Date Type Department Care Team (Late st Contact Info) Description 07/20/2024 Telephone [facility] Cardiothoracic [address], [address] [place] [address] Ana Luisa Simental RN HOSPITAL L[facility]G [id number] [address] [phone] Social History Tobacco Use Types Packs/Day Years [...] the past 12 months has th e [employer], [employer], oil, or water [employer] threatened to shut off services in your [...] Description 10/30/2024 10:45 AM EDT Office Visit [facility] General Surgery [address], 1st [place] [address] Lidia Troncoso MD [address] [place] [address] documented as [...] documented as of this encounter Care Teams Heel Seat Filler Relationship Specialty Start Date End Date Champ Quiroz MD [address] [place] [address] PCP - General Internal Medicine 06/29/24 documented as of this encounter
--- OUTSIDE RECORDS SUMMARY | 2024-08-21 14:40 | XMS_ITS | Encounter Summary ---
Author Organization [facility] Address [address] [place] [address] Care Team Providers Care Pbx Repairer Name Role Phone Champ Quiroz MD Primary Care Provider + [phone] Encounter Details Date Type Department Care Team [...] the past [address] [facility], were you homeless or living [...] the past 12 months has th e [employer], gas, oil, or water company threatened to [...] Description 10/30/2024 10:45 AM EDT Office Visit [facility] General Surgery [address], 1st [place] [address] Lidia Troncoso MD [address] [place] [address] documented as of this encounter Goals Goal [...] documented as of this encounter Care Teams Pbx Repairer Relationship Specialty Start Date End Date Champ Quiroz MD [address] [place] [address] PCP - General Internal Medicine 06/29/24 documented as of this encounter
--- OUTSIDE RECORDS SUMMARY | 2024-08-21 14:40 | XMS_ITS | Encounter Summary ---
Author Organization [facility] Address [address] [place] [address] Care Team Providers Care International Project Engineer Name Role Phone Champ Quiroz MD Primary Care Provider + [phone] Encounter Details Date Type Department Care Team [...] time in the past 12 m [facility], were you homeless or living [...] Description 10/30/2024 10:45 AM EDT Office Visit [facility] General Surgery [address], 1st [place] [address] Lidia Troncoso MD [address] [place] [address] documented as of this encounter [...] documented as of this encounter Care Teams International Project Engineer Relationship Specialty Start Date End Date Champ Quiroz MD [address] [place] [address] PCP - General Internal Medicine 06/29/24 documented as of this encounter
--- OUTSIDE RECORDS SUMMARY | 2024-08-21 14:40 | XMS_ITS | Encounter Summary ---
Author Organization [facility] Address [address] [place] [address] Care Team Providers Care Electron Microscopist Name Role Phone Champ Quiroz MD Primary Care Provider + [phone] Encounter Details Date Type Department Care Team [...] any time in the past 12 m [facility], were you homeless or [...] the past 12 months has th e [employer], gas, oil, or water company threatened to [...] Description 10/30/2024 10:45 AM EDT Office Visit [facility] General Surgery [address], 1st [place] [address] Lidia Troncoso MD [address] [place] [address] documented as of this encounter [...] documented as of this encounter Care Teams Electron Microscopist Relationship Specialty Start Date End Date Champ Quiroz MD [address] [place] [address] PCP - General Internal Medicine 06/29/24 documented as of this encounter
--- OUTSIDE RECORDS SUMMARY | 2024-08-21 14:40 | XMS_ITS | Patient Health Record ---
Author Organization [facility] Address [address] [place] [address] Care Team Providers Care Xerox Machine Operator Name Role Phone Michaelle Rivas Primary Care Provider Champ Quiroz Unavailable [phone] Migration, Provider Unavailable Unavailable Allergies Allergen (clinical [...] as needed Orally every 6 hrs Active Primidone 50 MG 1 tab(s) orally [...] every 8 hours; Duration: 30 days Active Simethicone 80 MG 1 tablet after meals and at bedtime as needed Orally Four times a day Active Rosuvastatin Calcium 40 MG 1 tablet Oral ly Once a day; Duration: 30 days Active Metoprolol Tartrate 25 MG 1 tablet Orall y Twice a day Active traZODone HCl 50 MG 1 tablet at bedtime as needed Orally Once a day; Duration: 30 days 07/30/2024 Active Loratadine 10 MG 1 tablet Orally Once a day Active buPROPion HCl ER (XL) 300 MG 1 tab(s) or ally every 24 hours; Duration: 30 days Active Flonase Allergy Relief 50 MCG/ACT 1 spray in each nostril Nasally Twice a day Active Immunizations Vaccine Route Administration [...] W/U Status Risk Notes Problem Primary insomnia (0714948) Primary insomnia (F51.01) Active confirmed Problem Psychophysiologic insomnia (358233762) Psychophysiologic insomnia (F51.04) Active confirmed Problem Essential tremor (681324440) Essential tremor (G25.0) Active confirmed Problem Panlobular emphysema (1136726) Panlobular emphysema (J43.1) Active confirmed Problem Left side sciatica (500830588025720) Sciatica, left side (M54.32) Active confirmed Problem Sciatica (39980942) Lumbago with sciatica, right side (M54.41) Active confirmed Problem Sciatica (75286831) Lumbago with sciatica, left side (M54.42) Active confirmed Problem Colostomy present (061789474) Colostomy status (Z93.3) Active confirmed Problem Mixed anxiety and depressive disorder (618089918) Depression with anxiety (F41.8) Active confirmed Problem Anxiety (13599812) Anxiety (F41.9) Active confi rmed Problem Vitamin B12 deficiency (non anemic) (58768345) B12 deficiency (E53.8) Active confirmed Problem Acute exacerbation of chronic obstructive airways disease (827984996) COPD exacerbation (J44.1) Active confirmed Problem Atherosclerosis of coronary artery without angina pectoris (135121297944630) Atherosclerosis of [place] coronary artery of [place] heart without angina pectoris (I25.10) Active confirmed Problem Disorder of skin AND/OR subcutaneous tissue (68079145) Skin lesions (L98.9) Active confirmed Vital Signs Heart Rate 88 /min 08/20/2024 Temperature 98.0 degrees Fahrenheit 08/20/2024 Blood pressure diastolic 72 mm Hg 08/20/2024 Height 5 ft 1 in in 08/20/2024 Blood pressure systolic 120 mm Hg 08/20/2024 Weight 114.8 lbs 08/20/2024 BMI 21.69 kg/m2 08/20/2024 Encounters Encounter Location Date Provider Diagnosis [facility] [address] [place], [place] [address] 05/19/2024 Provider [place] Depression with anxiety F41.8 and COPD exacerbation J44.1 [facility] [address] [place], [place] [address] 08/20/2024 Champ Quiroz [facility] [address] [address] 10/21/2023 Michaelle McNees Pain in joints of ri ght hand M25.541 and Pain in joints of left hand M25.542 [facility] [address] [address] 12/29/2023 Champ Quiroz Acute bronchitis, unspecified organism J20.9 ; Subacute cough R05.2 and Sciatica, left side M54.32 [facility] [address] [address] 04/20/2024 Michaelle McNees Depression with anxi ety F41.8 and COPD exacerbation J44.1 [facility] [address] [facility] [address] [place] [address] 07/02/2024 Champ Richie Tremor R25.1 ; Atherosclerosis of [place] coronary artery of [place] heart without angina pectoris I25.10 ; Anxiety F41.9 ; Hospital discharge follow-up Z09 ; Dysuria R30.0 and Colostomy present Z93.3 [facility] [address] [place] [address] 07/18/2024 Champjenniffer Quiroz Pelvic pain in femal e R10.2 and Panlobular emphysema J43.1 [facility] [address] [place] [address] 07/30/2024 Champ Quiroz C. difficile colitis A04.72 ; Primary insomnia F51.01 ; Colostomy status Z93.3 and Hospital discharge follow-up Z09 [facility] [address] [place] [address] 09/01/2023 Michaelle McNees [facility] [address] [place] [address] 09/02/2023 Michaelle McNees [facility] [address] [place] [address] 10/21/2023 Michaelle McNees [facility] [address] [place] [address] 11/28/2023 Michaelle McNees [facility] [address] [place] [address] 02/06/2024 Michaelle McNees [facility] [address] [place] [address] 04/20/2024 Michaelle McNees [facility] [address] [place] [address] 07/20/2024 Michaelle McNees Hypokalemia E87.6 [facility] [address] [place] [address] 07/20/2024 Michaelle McNees [facility] [address] [place] [address] 07/24/2024 Michaelle McNees [facility] [address] [place] [address] 08/09/2024 Michaelle McNees Assessments Encounter Date Diagnosis (ICD Code) Assessment Notes Treatment Notes Treatment Clinical Notes Section Notes 10/21/2023 Pain in joints of right hand (ICD-10 - M25.541) Pain likely related to arthritis. Rest, warm epsom salt soaks, tylenol arthritis prn, prednisone and diclofenac gel as above 10/21/2023 Pain in joints of left hand (ICD-10 - M25.542) 04/20/2024 Depression with anxiety (ICD-10 - F41.8) [...] be helpful for her 07/02/2024 Atherosclerosis of [place] coronary artery of [place] heart without angina pectoris (ICD-10 - I25.10) Status post bypass. On appropriate medication 07/18/2024 Panlobular emphysema (ICD-10 - J43.1) Stable. Off cigarettes, continue inhalers. 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 Possible ongoing problems from catheter but [...] has no pain, fever or abdominal swelling 12/29/2023 Acute bronchitis, unspecified organism (ICD-10 - J20.9) Discussed the etiology and expected course of bronchitis. Discussed the rationale for antibiotics and steroid use and the importance of completeing the prescription as prescribed. Discussed supportive care. Discussed the signs and symptoms of worsening infection/respira tory distress that may indicate need for reassement in clinic/ED. 12/29/2023 Subacute cough (ICD-10 - R05.2) 12/29/2023 Sciatica, left side (ICD-10 - M54.32) [...] that her intestinal status is viable 07/02/2024 Anxiety (ICD-10 - F41.9) 07/02/2024 Hospital [...] Test Name Order Date BASIC METABOLIC PANEL (33717) 07/23/2024 MAGNESIUM (622) 07/23/2024 Next Appt Details Provider Name:Champjenniffer Quiroz, 10/01/2024 03:15:00 PM, [address], [place], [address], Insurance Providers Payer Name Payer Address Payer Phone Subscriber Number Group Number Insured Name Patient Relationship to Insured Coverage Start Date Coverage End Date [employer]ICA[employer] [address] [address] [place] [address] [id number] Rere Reese Self - patient is [...] post CAB G May [address] [facility] Sepsis, bowel ischemia and colostomy Mar at [facility] Surgical History Surgery Date(Month/Year) lt rotator cuff 2020 rt hand surgery 01/2023 colon resection 04/30/24 Hospitalization History Reason Date(Month/Year) [facility]- abd pain 07/2024 Septic 07/24/2024 [facility] heart attach 04/30/2024-06/28/24 [facility] 01/2022
--- OUTSIDE RECORDS SUMMARY | 2024-08-21 14:40 | XMS_ITS | Encounter Summary ---
Author Organization Healthcare Address [address] [id number] Care Team Providers Care Residential Treatment Staff Name Role Phone Pcp, No Primary Care Provider Unavailabl e Encounter Details Date Type Department Care Team (Late st Contact Info) Description 06/26/2024 Telephone [facility] [address], [address] [place] [address] Ana Luisa Simental, RN [facility]OSPITAL L[facility]G [id number] [address] [place] [address] Social History Tobacco Use Types Packs/Day Years [...] the past 12 months has th e [employer], gas, oil, or water [employer] threatened to shut off services in your [...] [address], [address] [place] [address] Lidia Troncoso MD [address] [place] [address] documented as of this encounter [...] documented as of this encounter Care Teams Residential Treatment Staff Relationship Specialty Start Date End Date Pcp, [place] [address] PCP - General Family Medicine 04/04/24 06/28/24 documented as of this encounter
--- OUTSIDE RECORDS SUMMARY | 2024-08-21 14:40 | XMS_ITS | Encounter Summary ---
Author Organization Healthcare Address [address] [place] [address] Care Team Providers Care Management Manager Name Role Phone Champ Quiroz MD Primary Care Provider [phone] Encounter Details Date Type Department Care Team (Late st Contact Info) Description 08/07/2024 Telephone [facility] General Surgery [address], [address] [place] [address] Rina Mason, RN [facility] Social History Tobacco Use Types [...] the past 12 months has th e [employer], gas, oil, or water company threatened to [...] 08/07/2024 4:33 PM EDT Patient went to [facility] ED for evaluation today. Nothing further at this time. * Telephone Encounter - Rina Mason RN - 08/07/2024 10:37 AM EDT Patient is having severe lower abdominal pain that won't go away. Advised to go to local Ed for evaluation. Also reports being admitted to [facility] earlier this month for abdominal pain and they did a CT.Will request records and images for review. Viri, please request CT images/ report and d/c summary from [facility]. documented in this encounter Plan of Treatment Upcoming Encounters Date Type Department Care Team (Late st Contact Info) Description 10/30/2024 10:45 AM EDT Office Visit [facility] General Surgery [address], [address] [place] [address] Lidia Troncoso MD [address] [place] [address] documented as of this encounter [...] documented as of this encounter Care Teams Management Manager Relationship Specialty Start Date End Date Champ Quiroz MD [address] [place] [address] PCP - General Internal Medicine 06/29/24 documented as of this encounter
--- OUTSIDE RECORDS SUMMARY | 2024-08-21 14:42 | XMS_ITS | Data Portability ---
Author Organization [facility] [place], [facility] [place] Address [address] [place] [address] Assessment No assessment recorded. Plan of Treatment [...] Organization Details Recorded Time Shoulder Surgery completed [facility] 12/10/2021 16:40:07 section completed [facility] 12/10/2021 16:40:17 Imaging Results None recorded. Procedure [...] blood by Pulse oximetry Heart rate Systolic And Diastolic Provider Name and Address Organization Details Last Updated DateTime 2 162.56 cm 23.5 kg/m2 89820.4 4 g 96.9 [degF] 97 % 97 % 85 /min 112/60 mm[Hg] Corinne Tang [facility] [place] 2 13:30:57 Social History Question Answer Notes LastModified by Organizat ion Details LastModified Time Tobacco Smoking Status Current Every Day Smoker Corinne Tang [facility], [facility] [place] 12/10/2021 16:39:59 How Much Tobacco Do You [...] SNOMED-CT Code Diagnosis ICD10 Code Diagnosis Note [id number] Juany Mathews MD [facility] [address] [facility],[place] [address] 12/14/2021 13:22:57 12/14/2021 15:21:02 Essential tremor 464126733 G25.0 tremor has been under relatively good control with combinatio n of primidone and Inderal, we will watch her hair loss closely, it may be related to her recent COVID infection but if it is related to Inderal in may need to consider gradually weaning this off. 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 Juany Mathews MD [address] [place] [address], [id number], [facility] 12/14/2021 15:11:09 OBGyn Episode No OBEpisode recorded.
--- OUTSIDE RECORDS SUMMARY | 2024-08-21 14:42 | XMS_ITS | Encounter Summary ---
Author Organization [facility] Address [address] [place] [address] Care Team Providers Care Sheet Metal Technician Name Role Phone Champ Quiroz MD Primary Care Provider + [phone] Encounter Details Date Type Department Care Team (Latest Contact Info) Description 08/21/2024 Travel Social History Tobacco Use Types Packs/Day [...] the past 12 months has th e [employer], gas, oil, or water company threatened to [...] Description 10/30/2024 10:45 AM EDT [facility] Visit [facility] Surgery [address], [address] [place] [address] Lidia Troncoso MD [address] [place] [address] documented as of this encounter Goals Goal [...] documented as of this encounter Care Teams Sheet Metal Technician Relationship Specialty Start Date End Date Champ Quiroz MD [address] [place] [address] PCP - General Internal Medicine 06/29/24 documented as of this encounter
--- OUTSIDE RECORDS SUMMARY | 2024-08-21 14:42 | XMS_ITS | Encounter Summary ---
Author Organization Healthcare Address [address] [place] [address] Care Team Providers Care Civil Manager Name Role Phone Champ Quiroz MD Primary Care Provider + [phone] Reason for Visit * Reason Onset Date Comments HCN Clinical Concern/Question 08/21/2024 Encounter Details Date Type Department Care Team (Late st Contact Info) Description 08/21/2024 Telephone [facility] General Surgery [address], [address] [place] [address] Lidia Troncoso MD [address] [place] [address] HCN Clinical Concern/Question Social History [...] any time in the past 12 m [facility], were you homeless or living in a [...] encounter Miscellaneous Notes * Telephone Encounter - Kerry Hutchinson - 08/21/2024 1:40 PM EDT Clinical Concern/Question Reason for Call: Patient says she is in a lot of pain , she says she will like a call back from a nurse she says she is still in [place] , requesting a call hiram SCHMIDT Best contact number: [phone] (mobile) Optimal time of day to reach caller: ANYTIME Additional comments/information from caller: None Note: Please do not reply to this message. Follow-up communication and further actions as a result of this message need to be communicated with the patient directly, if the patient is not active onMyChart. If the patient is active on MyChart, they will receive notification of the communication/outcome via Lenovohart. documented in this encounter Plan of Treatment Upcoming Encounters Date Type Department Care Team (Late st Contact Info) Description 10/30/2024 10:45 AM EDT Office Visit [facility] General Surgery [address], [address] [place] [address] Lidia Troncoso MD [address] [place] [address] documented as of this encounter [...] documented as of this encounter Care Teams Civil Manager Relationship Specialty Start Date End Date Champ Quiroz MD [address] [place] [address] PCP - General Internal Medicine 06/29/24 documented as of this encounter
--- OUTSIDE RECORDS SUMMARY | 2024-08-21 14:42 | XMS_ITS | Encounter Summary ---
Author Organization Healthcare Address [address] [place] [address] Care Team Providers Care Photo Booth Operator Name Role Phone Champ Quiroz MD Primary Care Provider [phone] Encounter Details Date Type Department Care Team (Late st Contact Info) Description 07/21/2024 Orders Only External Location [address] [place] [address] Sundeep Fisher MD [address] [place] [address] Social History Tobacco Use Types Packs/Day [...] the past 12 months has th e [employer], gas, oil, or water [employer] threatened to shut off services in your [...] Description 10/30/2024 10:45 AM EDT Office Visit [facility] General Surgery [address], 1st [place] [address] Lidia Troncoso MD [address] [place] [address] documented as of this encounter Goals Goal [...] documented as of this encounter Care Teams Photo Booth Operator Relationship Specialty Start Date End Date Champ Quiroz MD [address] [place] [address] PCP - General Internal Medicine 06/29/24 documented as of this encounter
--- OUTSIDE RECORDS SUMMARY | 2024-08-21 14:42 | XMS_ITS | Encounter Summary ---
Author Organization Healthcare Address [address] [place] [address] Care Team Providers Care Cord Tire Builder Name Role Phone Champ Quiroz MD Primary Care Provider [phone] Encounter Details Date Type Department Care Team (Late st Contact Info) Description 08/07/2024 Orders Only External Location [address] [place] [address] Provider, External Social History Tobacco Use Types [...] 1 06/29/2024 Housing Stability Vital Sign Answer Gauilar e Recorded In the last 12 months, was t here a time when you were not able to pay the mortgage or rent on time? No 05/02/2024 Number of Times Moved in the Last Year Not on fi le 05/02/2024 At any time in the past 12 m [facility], were you homeless or living in a [...] Description 10/30/2024 10:45 AM EDT Office Visit [facility] General Surgery [address], [address] [place] [address] Lidia Troncoso MD [address] [place] [address] documented as of this encounter [...] documented as of this encounter Care Teams Cord Tire Builder Relationship Specialty Start Date End Date Champ Quiroz MD [address] [place] [address] PCP - General Internal Medicine 06/29/24 documented as of this encounter
--- OUTSIDE RECORDS SUMMARY | 2024-08-21 14:43 | XMS_ITS | Encounter Summary ---
Author Organization Healthcare Address [address] [place] [address] Care Team Providers Care Auction Clerk Name Role Phone Champ Quiroz MD Primary Care Provider + [phone] Reason for Visit * Reason Onset Date Comments HCN - Patient Message 08/20/2024 Reschedule due to transportation Encounter Details Date Type Department Care Team (Late st Contact Info) Description 08/20/2024 Telephone [facility] General Surgery [address], [address] [place] [address] Lidia Troncoso MD [address] [place] [address] HCN - Patient Message (Reschedule due to transportation ) Social History Tobacco Use Types Packs/Day Years [...] any time in the past 12 m [facility], were you homeless or living in a [...] the past 12 months has th e [employer], gas, oil, or water company threatened to [...] Telephone Encounter - Rina Mason RN - 08/20/2024 4:05 PM EDT Spoke with patient and moved appointment to tomorrow morning at 10 am. Verbalized understanding. * Telephone Encounter - Aleshia Connolly - 08/20/2024 12:16 PM EDT Patient Phone Message Reason for Call: Pt requesting a return call to [facility] 08/20 appt. Pt states she only has transportation tomorrow 08/21 or Thursday 08/24 Best contact number and optimal time of day to reach caller: [phone] Note: Please do not reply to this message. Follow-up communication and further actions as a result of this message need to be communicated with the patient directly, if the patient is not active onMyChart. If the patient is active on MyChart, they will receive notification of the communication/outcome via GREE. documented in this encounter Plan of Treatment Upcoming Encounters Date Type Department Care Team (Late st Contact Info) Description 10/30/2024 10:45 AM EDT Office Visit [facility] General Surgery [address], [address] [place] [address] Lidia Troncoso MD [address] [place] [address] documented as of this encounter Goals Goal [...] documented as of this encounter Care Teams Auction Clerk Relationship Specialty Start Date End Date Champ Quiroz MD [address] [place] [address] PCP - General Internal Medicine 06/29/24 documented as of this encounter
--- OUTSIDE RECORDS SUMMARY | 2024-08-21 14:43 | XMS_ITS | Encounter Summary ---
Author Organization Healthcare Address [address] [id number] Care Team Providers Care Emt Name Role Phone Champ Quiroz MD Primary Care Provider + [phone] Reason for Visit * Reason Onset Date Comments Med Refill 08/15/2024 Encounter Details Date Type Department Care Team (Late st Contact Info) Description 08/15/2024 [facility] [address], [address] [place] [address] Ana Luisa Simental RN [id number] [address] [phone] Social History Tobacco Use Types Packs/Day Years [...] the past 12 months has th e [employer], gas, oil, or water company threatened to [...] Description 10/30/2024 10:45 AM EDT [facility] General [facility] [address], [address] [place] [address] Lidia Troncoso MD [address] [place] [address] documented as of this encounter [...] documented as of this encounter Care Teams Emt Relationship Specialty Start Date End Date Champ Quiroz MD [address] [place] [address] PCP - General Internal Medicine 06/29/24 documented as of this encounter
--- OUTSIDE RECORDS SUMMARY | 2024-08-21 14:43 | XMS_ITS | Encounter Summary ---
Author Organization Healthcare Address [address] [place] [address] Care Team Providers Care Business Services Sales Representative Name Role Phone Champ Quiroz MD Primary Care Provider [phone] Encounter Details Date Type Department Care Team (Late st Contact Info) Description 08/09/2024 Orders Only External Location [address] [place] [address] Millie Ambrose, DO [address] [place] [address] Social History Tobacco Use Types Packs/Day Years [...] any time in the past 12 m [facility], were you homeless or living in [...] the past 12 months has th e [employer], gas, oil, or water [employer] threatened to shut off services in your [...] 10/30/2024 10:45 AM EDT Office Visit [facility] General Surgery [address], 1st [place] [address] Lidia Troncoso MD [address] [place] [address] documented as of this encounter Goals Goal Patient Goal Type Associated Problems Recent Progress Patient-Stated? Author Patient will verbalize understanding of orthotic wear , care and precautions to protect surgical repair for additional 4 weeks. Occupational Therapy No Jd Sabillon Patient will demonstrate correct performance of HEP to increase IP motion within 1 therapy visit. Occupational Therapy No RamandeepJd documented as of this encounter Procedures Procedure Name Priority Date/Time Associated Diagnosis Comments CT OUTSIDE IMAGES 08/09/2024 7:35 PM EDT documented in this encounter Results * CT OUTSIDE IMAGES (08/09/2024 7:35 PM EDT) Anatomical Region Laterality Modality Computed Tomogra phy 08/09/2024 7:35 PM EDT [address]ie BENAVIDEZ CT PROCEDURES Final Result documented in this [...] as of this encounter Care Teams Business Services Sales Representative Relationship Specialty Start Date End Date Champ Quiroz MD [address] [place] [address] PCP - General Internal Medicine 06/29/24 documented as of this encounter
[2024-08-21 15:22] LABS: Microscopic, Urine URINE MICROSCOPIC (MICROSCOPIC)
[2024-08-21 15:29] LABS: Bilirubin,Urine Negative (Negative); Color,Urine YELLOW (Yellow); Glucose,Urine (UA) Negative (Negative); Ketones,Urine Negative (Negative); Leukocyte Esterase,Urine Negative (Negative); PH,Urine 6.0 (5.0-8.5); Protein,Urine Negative (Negative); Specific Gravity, Urine <= 1.005 (1.005-1.030); Urobilinogen,Urine 0.2 EU/dl (0.2)
[2024-08-21 15:30] LABS: Hematocrit 37.0 % (37.0-47.0); Hemoglobin 11.8 g/dL (12.2-16.2); Immature Granulocytes % 0.5 %; Mean Corpuscular HGB Conc 31.9 g/dL (31.8-35.4); Mean Corpuscular Hemoglobin 29.0 pg (27.0-31.2); Mean Corpuscular Volume 90.9 fl (81-99); Nucleated Red Blood Cells % 0 %; Platelet Count 454 K/mm3 (142-424); Red Blood Count 4.07 M/mm3 (4.20-5.40); Red Cell Distribution Width-SD 51.8 fL; White Blood Count 17.5 K/mm3 (4.8-10.8)
[2024-08-21] MEDS: 0.9 % SODIUM CHLORIDE 1000ML 1,000 ML 999 ML IV (15:36)
[2024-08-21] MEDS: ACETAMINOPHEN 1,000MG/100ML VIAL 1000 MG IV (15:36)
[2024-08-21] MEDS: KETOROLAC 30MG/ML VIAL 15 MG IV (15:37)
[2024-08-21] MEDS: ONDANSETRON 4MG/2ML VIAL 4 MG IV (15:37)
[2024-08-21] MEDS: HYDROMORPHONE 2MG/ML SYRINGE 0.5 MG IV ×2 (15:37→17:27)
[2024-08-21 15:53] LABS: Alanine Aminotransferase 160 U/L (12-78); Albumin Level 3.5 g/dl (3.5-5.0); Albumin/Globulin Ratio 1.3 (1.1-1.8); Alkaline Phosphatase 184 U/L (38-126); Anion Gap 12.1 mEq/L (5-15); Aspartate Amino Transferase 85 U/L (14-36); Bilirubin,Total 0.4 mg/dl (0.2-1.3); Blood Urea Nitrogen 11 mg/dl (7-17); Calcium 9.0 mg/dl (8.4-10.2); Carbon Dioxide 32 mmol/L (22.0-30.0); Chloride 98 mmol/L (98-107); Creatinine Clearance Estimated 77 mL/min (50-200); Creatinine,Serum 0.70 mg/dl (0.52-1.04); Estimated Glomerular Filt Rate 87 ml/min (>60); GFR (African American) 106 ML/MIN (>60); Globulin 2.8 g/dL (1.3-3.2); Glucose 97 mg/dl (74-100); Magnesium 1.9 mg/dl (1.6-2.3); Phosphorous 4.6 mg/dl (2.5-4.5); Potassium 5.1 mmoL/L (3.5-5.1); Sodium 137 mmol/L (136-145); Total Protein,Serum 6.3 g/dl (6.3-8.2)
[2024-08-21 15:58] LABS: C-Reactive Protein 2.2 mg/L (0-4)
[2024-08-21 16:12] LABS: Procalcitonin 0.041 ng/mL (0.0-2.0)
[2024-08-21 16:28] LABS: Squamous Epithelial Cell,Urine Occasional #/hpf (0-5); WBC,Urine Occasional #/hpf (0-3)
[2024-08-21 16:34] LABS: Adenovirus F 40/41, stool Not Detected (NotDetected); Cyclospora Cayetanesis Not Detected (NotDetected); Plesimonas Shigalloides, PCR Not Detected (NotDetected); Salmonella, PCR Not Detected (NotDetected); Shiga-like toxin E coli Not Detected (NotDetected); Shigella Enterovasive E coli Not Detected (NotDetected); Vibrio, PCR Not Detected (NotDetected); Yersinia Entercolitica, PCR Not Detected (NotDetected)
--- NOTE | 2024-08-21 16:50 | PC.NURSE ---
Called for PA Don to talk to them and he is on the phone with them now.
[2024-08-21] MEDS: VANCOMYCIN HCL 50MG/ML 150ML KIT 125 MG PO (17:27)
[2024-08-21 19:36] LABS: Reflex Lactic Add Lactic Reflex
[2024-08-21 22:23] LABS: Clostridium Difficile A/B, PCR Detected (NotDetected)
--- NOTE | 2024-08-22 06:57 | PC.NURSE ---
Called pt to give dx. Pt did not answer. Left message to call ER.
--- NOTE | 2024-08-23 14:59 | PC.NURSE ---
SPOKE WITH PT AND INSTRUCTED TO COMPLETE COURSE OF VANC. PT V/U
== END 2024-08-21 17:40 | disposition home or self-care (01) ==
PROVIDERS: Physician Assistant; Emergency Provider Student in an Organized Health Care Education/Training Program; PCP Internal Medicine Adolescent Medicine
DX: R10.0 Acute abdomen (principal); A04.71 Enterocolitis due to Clostridium difficile, recurrent; F17.210 Nicotine dependence, cigarettes, uncomplicated; Z93.3 Colostomy status
CPT/HCPCS: 80053; 81001; 83605; 83735; 84100; 84145; 85025; 85651; 86140; 87507; 96361; 96374; 96375; 96376; 99291; J0131; J1171; J1885; J2405; J7030

== ENCOUNTER 2024-09-17 16:15 | Emergency (ER) | payer MEDICAID, SELFPAY ==
--- OUTSIDE RECORDS SUMMARY | 2024-07-18 09:52 | XMS_ITS | Encounter Summary ---
Author Organization Healthcare Address [address] [place] [address] Care Team Providers Care Event Specialist Food Demonstrator Name Role Phone Champ Quiroz MD Primary Care Provider [phone] Encounter Details Date Type Department Care Team (Latest Contact Info) Description 07/18/2024 9:52 AM EDT - 07/18/2024 11:59 PM EDT [facility] En[facility] [address] [place] [address] CAD, multiple vessel Discharge Disposition: Home or [...] any time in the past 12 m [facility], were you homeless or living in a custodial (including now)? No 05/02/2024 AUDIT-C Answer Date [...] Description 10/30/2024 10:45 AM EDT Office Visit [facility] General Surgery [address] [place] [address] Lidia Troncoso MD [address] [place] [address] documented as of this encounter [...] documented as of this encounter Care Teams Event Specialist Food Demonstrator Relationship Specialty Start Date End Date Champ Quiroz MD [address] [place] [address] PCP - General Internal Medicine 06/29/24 documented as of this encounter
--- OUTSIDE RECORDS SUMMARY | 2024-07-30 12:15 | XMS_ITS ---
Author Organization [facility] Address [address] [place] [address] Care Team Providers Care Blast Furnace Keeper Name Role Phone Michaelle Rivas Primary Care Provider [phone] Champ Quiroz Unavailable [phone] Allergies Allergen (clinical drug ingredient) Drug/Non Drug Allergy documented on EMR Reaction Allergy Type Onset Date Status LATEX GLOVES (uncoded) Unknown Allergy Active acetaminophen / oxycodone Percocet stomach upset, sweating Drug Allergy Active REASON FOR VISIT [facility] D/C 07/24/2024 Medications Medication SIG (Take, Route, [...] W/U Status Risk Notes Problem Primary insomnia (1914182) Primary insomnia (F51.01) Active confirmed Problem Colostomy status (Z93.3) Active confirmed Vital Signs Temperature 97.5 degrees Fahrenheit 07/31/19 25 Blood pressure systolic 150 mm Hg 07/31/19 25 Blood pressure diastolic 90 mm Hg 025 Heart Rate 100 /min 07/30/2024 Height 5 ft 1 in in 07/30/2024 Weight 116.4 lbs 07/30/2024 BMI 21.99 kg/m2 07/30/2024 Encounters Encounter Location Date Provider Diagnosis [facility] [place] [address] [facility] [address] [place] [address] 07/30/2024 Champ Quiroz C. difficile colitis A04.72 [...] Name:Champ Quiroz, 10/01/2024 03:15:00 PM, [address] [place] [facility] [address] [facility], [address], [place], [address], Progress Notes * Rere REESE ADOB: [birth year] (53 yo F)Acc No.[id number]:07/30/2024 HOSP F/U Patient: Dayana Rere CASIANO Provider: Dayana Quiroz MD :1970 A ge:53 Y S ex:Female Date:07/30/2024 Address:[address] [place] [address] [id number] Pcp:Michaelle Rivas Subjective: * Chief Complaints: * 1 . [facility] D/C 07/24/2024. * HPI: I ntrim History: [...] posthospital visit from above dates. Admitted to [facility] on 07/21/2024 with possible pouchitis -initially treated with IV antibiotics but found to have C. difficile and transitioned over to vancomycin. Diarrhea improved and she was discharged home with pbetty Prescott and follow-up with our office. No evidence of pouchitis was found on further imaging and [facility] GI did not think patient needed further intervention from her colostomy status recently at . * Medical History: H ormone replacement therapy, Depression, Copd, Asthma, Smoker, Tremors, Coronary artery disease, status post CABG May 08 at [facility], Sepsis, bowel ischemia and colostomy April/2024 at [facility]. * Surgical History: l t rotator cuff [...] active: no. Travel outside [place]: no. 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 * Medications: T aking Simethicone 80 MG [...] MD Date: 0 07/30/2024 Generated for Little catalan/Fior/eTalbinsmitting on: 0 09/17/2024 04:48 PM EDT History and Physical Notes * HPI (History of Present Illness) Category Sub-Category Detail Notes Category Not es [place]trim History Transition of care visit from hospital Date of admission to hospital:: 07/21/2024 Patient here for posthospital visit from above dates. Admitted to [facility] on 07/21/2024 with possible pouchitis -initially treated with IV antibiotics but found to have C. difficile and transitioned over to vancomycin. Diarrhea improved and she was discharged home with p.o. Vanco and follow-up with our office. No evidence of pouchitis was found on further imaging and [facility] GI did not think patient needed further [...]
--- OUTSIDE RECORDS SUMMARY | 2024-07-31 09:00 | XMS_ITS | Encounter Summary ---
Author Organization Healthcare Address [address] [place] [address] Care Team Providers Care Studio Owner Name Role Phone Champ Quiroz MD Primary Care Provider [phone] Reason for Visit * Reason Comments Post-op * Consultation (Routine) - Closed Specialty Diagnoses / Procedures Referred By Contac t Referred To Contact Diagnoses S/P colon resection Trinity Yousif S, EQUIPMENT INSPECTOR [address] [facility] [address] [place] [address] Phone: tel: fax: Lidia Troncoso MD [address] [address] Phone: tel: fax: Referral ID Status Reason Start Date Expiration Date V isits Requested Visits Authorized [id number] Closed Specialty Services Required 06/21/2024 12/21/2025 1 1 Encounter Details Date Type Department Care Team (Late st Contact Info) Description 07/31/2024 9:00 AM EDT Office Visit [place] [facility] [address] [place] [address] Lidia Troncoso MD [phone] [place] [phone] S/P colostomy (CMS/HCC) (Primary Dx); S/P colon [...] time in the past 12 m [facility], were you homeless or living in a senior living (including now)? No 05/02/2024 AUDIT-C Answer Date [...] the past 12 months has th e [employer], gas, oil, or water [employer] threatened to shut off services in your [...] file Social Connections: Unknown (11/22/2022) Received from [facility] Family and Community Support Help with Day-to-Day [...] Date Anxiety COPD (chronic obstructive pulmonary disease) ([facility]) 05/01/2024 Continue Duo nebs q6 SPO2 goal >88% Depression GERD (gastroesophageal reflux disease) 05/01/2024 Continue Protonix 40 mg daily Hyperkalemia 05/06/2024 Now resolved, pt with hypokalemia requiring replacement On mechanically assisted ventilation ([facility]) 05/06/2024 Arrived to ICU intubated 05/07 extubated to 4LNC 05/08 resolved Tobacco use 05/01/2024 Hydro Plant 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 smoking 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 Complicates [...] Description 10/30/2024 10:45 AM EDT Office Visit [facility] General Surgery [address] [place] [address] Lidia Troncoso MD [address] [place] [address] documented as of this encounter Goals Goal [...] documented as of this encounter Care Teams Studio Owner Relationship Specialty Start Date End Date Champ Quiroz MD [address] [address] [place] [address] PCP - General Internal Medicine 06/29/24 documented as of this encounter
--- OUTSIDE RECORDS SUMMARY | 2024-08-20 11:15 | XMS_ITS ---
Author Organization [facility] Address [address] [place] [address] Care Team Providers Care Job Compositor Name Role Phone Michaelle Rivas Primary Care Provider Champ Quiroz Unavailable [phone] Allergies Allergen (clinical drug ingredient) Drug/Non Drug [...] Signs Temperature 98.0 degrees Fahrenheit 08/21/19 25 Blood pressure systolic 120 mm Hg 08/21/19 25 Blood pressure diastolic 72 mm Hg 025 Heart Rate 88 /min 08/20/2024 Height 5 ft 1 in in 08/20/2024 Weight 114.8 lbs 08/20/2024 BMI 21.69 kg/m2 08/20/2024 Encounters Encounter Location Date Provider Diagnosis [facility] [place] [address] [facility] [address] [place], [place] [address] 08/20/2024 Champ Quiroz Atherosclerosis of [place] coronary artery of [place] heart without angina pectoris I25.10 ; Colostomy status Z93.3 and Hospital discharge follow-up Z09 Assessments Encounter Date Diagnosis (ICD Code) Assessment Notes Treatment Notes Treatment Clinical Notes Section Notes 08/20/2024 Atherosclerosis of [place] coronary artery of [place] heart without angina pectoris (ICD-10 - I25.10) Overall doing fairly well. No changes in plan. Stable from a vascular standpoint. 08/20/2024 Colostomy status (ICD-10 - Z93.3) Infection resolved, following up with [facility] 08/20/2024 Hospital discharge follow-up (ICD-10 - Z09) Personally reviewed H&P and discharge summary as available from hospital discharge documentation. Reviewed pertinent labs and test done in the hospital. Personally reconciled medication. Plan Of Treatment Treatment Notes Assessment Notes Atherosclerosis of [place] co ronalison artery of [place] heart without angina pectoris Overall doing fairly well. No changes in plan. Stable from a vascular standpoint. Colostomy status Infection resolved, following up with GI/GI surgery Hospital discharge follow-up Personally reviewed H&P and discharge summary as available from hospital discharge documentation. Reviewed pertinent labs and test done in the hospital. Personally reconciled medication. Next Appt Details Follow Up: prn, Reason: Provider Name:Champ Quiroz, 10/01/2024 03:15:00 PM, [address], [address], [place], [address], Progress Notes * Miguel Ángel REESEie ADOB: [birth year] (53 yo F)Acc No.[id number]:08/20/2024 HOSP F/U Patient: Rere DICKSON Provider: Dayana Quiroz MD :1970 A ge:53 Y S ex:Female Date:08/20/2024 Address:[address] [place] [address] [id number] Pcp:Michaelle Rivas Subjective: * Chief [...] reconciled from hospital: M edications left unchanged. Here for hospital discharge follow-up, significantly complex female who had CAD with CABG in April, subsequent mesenteric ischemia, requiring right hemicolectomy, Santiago's pouch, admitted with left lower quadrant pain and possible pouchitis. Treated with IV antibiotics, discharged on p.o. antibiotics on the . Overall feels much better. * Medical History: H ormone replacement therapy, Depression, Copd, Asthma, Smoker, Tremors, Coronary artery disease, status post CABG May 08 at [facility], Sepsis, bowel ischemia and colostomy April/2024 at [facility]. * Surgical History: l t rotator cuff 2020, rt hand surgery 01/2023, colon resection 04/30/24. * Hospitalization/Major Diagno stic Procedure: [facility] 01/2022, [facility]- heart attach 04/30/2024-06/28/24, Septic 07/24/2024, [facility]- abd pain 07/2024. * Family History: F [...] active: no. Travel outside [place]: no. 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 * Medications: T aking Simethicone 80 MG [...] 5 ft 1 in, Wt: 114.8, BMI:21.69. * Examination: G eneral Examination: General P [...] in the bag. Assessment: * Assessment: 1. A therosclerosis of [place] coronary artery of [place] heart without angina pectoris - I25.10 (Primary) 2 . C olostomy status - Z93.3 3 . H ospital discharge follow-up - Z09 Plan: * Treatment: 2. C olostomy status Notes: Infection resolved, following up with [facility] 3. H ospital discharge follow-up Notes: Personally reviewed H&P and discharge summary as available from hospital discharge documentation. Reviewed pertinent labs and test done in the hospital. Personally reconciled medication. * Procedure Codes: 9 9495 TRANS CARE MGMT 14 DAY DISCH, Modifiers: 25 , 1111F DSCHR MED/CURENT MED MERGE * Follow Up: p rn * * Sign off status: Completed true * Provider: Dayana Quiroz MD Date: 0 08/20/2024 Generated for Printi ng/Fior/eTransmitting on: 0 09/17/2024 04:49 PM EDT History and Physical Notes * HPI (History of Present Illness) Category Sub-Category Detail Notes Category Not es [place] History Transition of care visit from hospital Date of admission to hospital:: 08/07/2024 Here for hospital discharge follow-up, significantly complex female who had CAD with CABG in April, subsequent mesenteric ischemia, requiring right hemicolectomy, Santiago's pouch, admitted with left lower quadrant pain and possible pouchitis. Treated with IV antibiotics, discharged on p.o. antibiotics on the . Overall feels much better Date of receipt of hospital admission re [...] sternotomy scar well-healed [facility] [place], NAD on RA,
--- OUTSIDE RECORDS SUMMARY | 2024-08-21 10:00 | XMS_ITS | Encounter Summary ---
Author Organization [facility] Address [address] [place] [address] Care Team Providers Care Custom Bike Builder Name Role Phone Champ Quiroz MD Primary Care Provider [phone] Reason for Referral * Imaging (Urgent) - Closed Specialty Diagnoses / Procedures Referred By Contac t Referred To Contact Radiology Diagnoses 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) Right lower quadrant abdominal pain Procedures CT Abdomen Pelvis w IV & PO Contrast Lidia Troncoso MD [address] [address] Phone: tel: fax: Referral ID Status Reason Start Date Expiration Date Visits Re quested Visits Authorized [id number] Closed 08/21/2024 02/20/2026 1 1 Reason for Visit * Reason Comments Follow-up Encounter Details Date Type Department Care Team (Late st Contact Info) Description 08/21/2024 10:00 AM EDT Office Visit OR Clinic General Surgery [address] [place] [address] Lidia Troncoso MD [id number] [place] 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) (Primary Dx); Right lower quadrant abdominal pain Social History Tobacco Use Types Packs/Day [...] the past 12 months has th e [employer], gas, oil, or water company threatened to [...] Sign Reading Time Taken Comments Blood Pressure 106/71 08/21/2024 10:09 AM EDT Pulse 75 08/21/2024 10:09 AM EDT Temperature 36.6 C (97.9 F) 08/21/2024 10:06 AM EDT Respiratory Rate 16 08/21/2024 10:06 AM EDT Oxygen Saturation 98% 08/21/2024 10:06 AM EDT Inhaled Oxygen Concentration - - Weight 53.2 kg (117 lb 4.8 oz) 08/21/2024 10:06 AM EDT Height 152.4 cm (5') 08/21/2024 10:06 AM EDT Body Mass Index 22.91 08/21/2024 10:06 AM EDT documented in this encounter Miscellaneous Notes * Progress Notes - Marva Doan MD - 08/21/2024 10:00 AM EDT [facility] Colon & Rectal Surgery 08/21/2024 Chief Complaint: Abdominal pain, post-hospitalization follow-up HPI: Rere Reese is a 53 y.o. female with history of colonic ischemia and perforation following CABG 05/06/24 requiring left hemicolectomy with end transverse colostomy 05/23/24. Patient was last seenon 07/31/24 with plans to see her back in October to consider colostomy reversal in early November.However, she presents today after recent ER visit and hospitalization at [facility]. She developed acute on chronic abdominal pain in the lower abdomen, worse with sitting/standing, for which she sought care. CTA 07/21/24 demonstrated pronounced axi-be-[id number] long segment of active ileitis and Luis's pouchitis as well as cystitis vs reactive changes from the enteritis. The report mentions ostial atherosclerosis calcification of celiac but no occlusion or high-grade obstruction, Her WBC was 33 at that time and PCR testing was positive for C diff. She was treated with oral vancomycin. She was later hospitalized again for similar pain around 08/07/[address] findings. She says she was empirically treated for C diff again and was administered prednisone with a taper, which she believes significantly improved her pain and overall fatigue/malaise. She continues to have this pain and similar vague symptoms of feeling unwell. Denies diarrhea or other changes in her ostomy output throughout these presentations. Her symptoms seem to be completely unrelated to eating -no post-prandial component. She does report that she used to have some urgency to have a BM and often had loose stool after eating prior, but no history of chronic abdominal pain prior to her operation. Her last colonoscopy was about one year ago, done in [place], reportedly normal. ROS: A complete 14 point review of systems was done with the patient. These are all negative with the exception of what is noted in the HPI. Past Medical History: has a past medical history of Anxiety, COPD (chronic obstructive pulmonary disease) ([facility]) (05/01/2024), Depression, GERD (gastroesophageal reflux disease) (05/01/2024), Hyperkalemia (05/06/2024),On mechanically assisted ventilation ([facility]) (05/06/2024), Tobacco use (05/01/2024), and Tremor (0 05/01/2024). Past Surgical History: has a past surgical history that includes section, classic; Cholecystectomy; Shoulder surgery; Abdominal adhesion surgery; Hand surgery (Right); and Coronary artery bypass graft (05/06/2024). Family History: family history is not on file. Social History: Social History[1] Physical Exam: Vitals: 08/21/24 1009 BP: 106/71 Pulse: 75 Resp: Temp: SpO2: Body mass index is 22.91 kg/m??. GEN: NAD HEENT: NCAT, EOMI RESP: Equal bilateral chest rise, normal work of breathing CV: RRR, appears well perfused ABD: Soft, mildly tender in RLQ without guarding or rebound, nondistended, colostomy pink with softwell formed stool in bag EXT: No gross deformities MSK: Full ROM in BL UE NEURO: No focal deficits, AOx3 PSYCH: Normal mood and affect PERIANAL/PERINEUM: n/a DINA: n/a LABORATORIES AND IMAGING STUDIES: I personally reviewed all the laboratory examinations and imagingstudies available from her hospitalization 07/21/[address] scan from 08/07/24: Her CT scans demonstrate inflammatory findings of thickening and enhancement of her distal small bowel loops with adjacent free fluid and stranding - nonspecific enteritis. Other stool testing including viral pathogens was negative during her July work-up. Assessment/Plan Problem List Items Addressed This Visit None Visit Diagnoses 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) - Primary Relevant Orders CT Abdomen Pelvis w IV & PO Contrast (Completed) Right lower quadrant abdominal pain Relevant Orders CT Abdomen Pelvis w IV & PO Contrast (Completed) 53 year old female with h/o ischemic colitis following CABG sp left hemicolectomy with end transverse colostomy who is interested in reversal, having ongoing lower abdominal pain requiring recent hospitalizations(s) and treated for C diff colitis. CT scans in July showed terminal ileitis. Unclear ba sed on persistence of symptoms if these findings have resolved - could be related to ongoing ischemic pathophysiology vs infectious. We will obtain a stat CT today to re-evaluate. Would hold on further steroid therapy in the meantime. Marva Doan MD [1] Social History Tobacco Use Smoking status: Former Current packs/day: 0.00 Types: Cigarettes Quit date: 04/30/2024 Years since quittin.3 Smokeless tobacco: Never Vaping Use Vaping status: Never Used Substance Use Topics Alcohol use: Not Currently Drug use: Not Currently Cosigned by Lidia Troncoso MD at 08/27/2024 10:49 AM EDT Associated attestation - Lidia Troncoso MD - 08/27/2024 10:49 AM EDT I saw and evaluated the patient with the resident/fellow. I discussed the case with the resident/fellow and agree with the findings and plan as documented. documented in this encounter Plan of Treatment Upcoming Encounters Date Type Department Care Team (Late st Contact Info) Description 10/30/2024 10:45 AM EDT Office Visit [facility] General Surgery [address] [place] [address] Lidia Troncoso MD [address] [place] [address] documented as of this encounter [...] Jd Sabillon documented as of this encounter Results * CT Abdomen Pelvis w IV & PO Contrast (08/21/2024 1:08 PM EDT) Anatomical Region Laterality Modality Abdomen, Pelvis Computed Tomogra phy Impressions 08/21/2024 1:34 PM EDT Persistent abnormal wall thickening and enhancement of the distal small bowel loops with mild fluid distention. There is fluid also distending the proximal colon to the ostomy along the right anterior abdominal wall. Findings to suggest a persistent nonspecific enteritis. Surrounding stranding and fluid within the pelvis. Mild distention of the right renal collecting system and ureter likely due to the adjacent inflammation. Stable area of scarring or post inflammatory change along the tail the pancreas extending anteriorly within the left upper abdomen. Previously seen surrounding stranding along the distal pancreas and lesser curvature the stomach is improved when compared to the prior study.. CRITICAL RESULT: No. COMMUNICATION: Per this written report. Drafted by Heather Aguirre MD on 08/21/2024 1:26 PM Final report signed by Heather Aguirre MD on 08/21/2024 1:34 PM Narrative 08/21/2024 1:34 PM EDT CLINICAL INDICATION: Abdominal pain, acute, nonlocalized TECHNIQUE: Multiple axial CT images were obtained from lung bases through pubic symphysis following administration of IV contrast, Omnipaque 300, 100 mL. Reformatted images in the coronal and sagittal planes were generated from the axial data set to facilitate diagnostic accuracy. Total DLP (Dose-Length Product): 260.77 mGy.cm. Please note: The reported value represents the total of one or more individual components during the CT acquisition on this date and at this time, and as such, the same value may appear in more than one CT report depending on the interpreting/reporting physicians. COMPARISON: 07/21/2024 FINDINGS: Lower Chest: Lung bases are grossly clear. Solid Abdominal Organs: Liver is homogeneous in appearance. Gallbladder is been surgically removed. The pancreas is homogeneous in appearance. There is some stable scarring identified adjacent to the tail of the pancreas extending to the anterior left upper quadrant. This is unchanged when compared to the prior study. Some scarring from prior inflammation cannot be excluded. Spleen is unremarkable. Both adrenal glands are within normal limits. Symmetric enhancement of the renal parenchyma. There is slight prominence identified of the right renal collecting system and ureter likely related to the adjacent inflammation within the right lower quadrant and pelvis. No stones or other distention seen of the renal collecting system. GI Tract/Mesentery/Peritoneum: Stomach is unremarkable. The proximal and mid small bowel bowel is within normal limits. No mucosal abnormality. There is abnormal wall thickening and surrounding stranding of the distal small bowel within the pelvis. The appearance of the small bowel is somewhat improved when compared to the prior study. There is surrounding stranding and fluid. Enhancement identified of the wall with wall thickening. The appendix is normal. Fluid identified within the a sending colon. Ostomy identified along the right anterior abdominal wall. Patient status post partial colectomy. The rectum is unremarkable. The anastomosis is within normal limits. Pelvic Viscera: The bladder is incompletely distended. No gross mass or lesion. The uterus is not well seen. Lymph Nodes/Vasculature: No abdominal or retroperitoneal lymphadenopathy. Some fluid identified within the pelvis. No abnormal mass or fluid collections identified. No pelvic adenopathy. Vascular calcification seen within the abdominal aorta and iliac vessels. Free Fluid: Fluid identified within the pelvis. Musculoskeletal and Body Wall: Bony structures reveal minimal degenerative changes seen within the spine. No ventral abdominal wall mass or defect. Ostomy along the right anterior abdominal wall. Procedure Note Heather Aguirre MD - 08/21/2024 CLINICAL INDICATION: Abdominal pain, acute, nonlocalized TECHNIQUE: Multiple axial CT images were obtained from lung bases through pubicsymphysis following administration of IV contrast, Omnipaque 300, 100 mL.Reformatted images in the coronal and sagittal planes were generated fromthe axial data set to facilitate diagnostic accuracy. Total DLP (Dose-Length Product): 260.77 mGy.cm. Please note: The reportedvalue represents the total of one or more individual components during theCT acquisition on this date and at this time, and as such, the same valuemay appear in more than one CT report depending on theinterpreting/reporting physicians. COMPARISON: 07/21/2024 FINDINGS: Lower Chest: Lung bases are grossly clear. Solid Abdominal Organs: Liver is homogeneous in appearance. Gallbladder isbeen surgically removed. The pancreas is homogeneous in appearance. Thereis some stable scarring identified adjacent to the tail of the pancreasextending to the anterior left upper quadrant. This is unchanged whencompared to the prior study. Some scarring from prior inflammation cannotbe excluded. Spleen is unremarkable. Both adrenal glands are within normallimits. Symmetric enhancement of the renal parenchyma. There is slightprominence identified of the right renal collecting system and ureterlikely related to the adjacent inflammation within the right lowerquadrant and pelvis. No stones or other distention seen of the renalcollecting system. GI Tract/Mesentery/Peritoneum: Stomach is unremarkable. The proximal andmid small bowel bowel is within normal limits. No mucosal abnormality.There is abnormal wall thickening and surrounding stranding of the distalsmall bowel within the pelvis. The appearance of the small bowel issomewhat improved when compared to the prior study. There is surroundingstranding and fluid. Enhancement identified of the wall with wallthickening. The appendix is normal. Fluid identified within the a sendingcolon. Ostomy identified along the right anterior abdominal wall. Patientstatus post partial colectomy. The rectum is unremarkable. The anastomosisis within normal limits. Pelvic Viscera: The bladder is incompletely distended. No gross mass orlesion. The uterus is not well seen. Lymph Nodes/Vasculature: No abdominal or retroperitoneal lymphadenopathy.Some fluid identified within the pelvis. No abnormal mass or fluidcollections identified. No pelvic adenopathy. Vascular calcification seenwithin the abdominal aorta and iliac vessels. Free Fluid: Fluid identified within the pelvis. Musculoskeletal and Body Wall: Bony structures reveal minimal degenerativechanges seen within the spine. No ventral abdominal wall mass or defect.Ostomy along the right anterior abdominal wall. IMPRESSION: Persistent abnormal wall thickening and enhancement of the distal smallbowel loops with mild fluid distention. There is fluid also distending theproximal colon to the ostomy along the right anterior abdominal wall.Findings to suggest a persistent nonspecific enteritis. Surroundingstranding and fluid within the pelvis. Mild distention of the right renalcollecting system and ureter likely due to the adjacent inflammation. Stable area of scarring or post inflammatory change along the tail thepancreas extending anteriorly within the left upper abdomen. Previouslyseen surrounding stranding along the distal pancreas and lesser curvaturethe stomach is improved when compared to the prior study.. CRITICAL RESULT: No. COMMUNICATION: Per this written report. Drafted by Heather Aguirre MD on 08/21/2024 1:26 PM Final report signed by Heather Aguirre MD on 08/21/2024 1:34 PM us Lidia Troncoso MD IMG CT PROCEDURES Final Result documented in this encounter Visit Diagnoses Diagnosis 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)- Primary Colostomy status Right lower quadrant abdominal pain 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) Colostomy status Right lower quadrant abdominal pain documented in this encounter Additional Health Concerns Assessment Noted Time PHQ-9 Depression Total Score: 1 06/30/19 25 2:40 PM EDT A fall risk assessment has been complete d for the patient 07/18/2024 11:10 AM EDT A Body Mass Index follow-up plan has been documented for the patient 08/27/2024 10:49 AM EDT documented as of this encounter Care Teams Custom Bike Builder Relationship Specialty Start Date End Date Champ Quiroz MD [address] [place] [address] PCP - General Internal Medicine 06/29/24 documented as of this encounter
--- OUTSIDE RECORDS SUMMARY | 2024-08-21 12:18 | XMS_ITS | Encounter Summary ---
Author Organization Healthcare Address [address] 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) Right lower quadrant abdominal pain Procedures CT Abdomen Pelvis w IV & PO Contrast Lidia Troncoso MD [address] [address] Phone: tel: fax: Referral ID Status Reason Start Date Expiration Date Visits Re quested Visits Authorized [id number] Closed 08/21/2024 02/20/2026 1 1 Reason for Visit * Imaging (Urgent) - Closed Specialty Diagnoses / Procedures Referred By Contac t Referred To Contact Radiology Diagnoses 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) Right lower quadrant abdominal pain Procedures CT Abdomen Pelvis w IV & PO Contrast Lidia Troncoso MD [address] [address] Phone: tel: fax: Referral ID Status Reason Start Date Expiration Date Visits Re quested Visits Authorized [id number] Closed 08/21/2024 02/20/2026 1 1 Encounter Details Date Type Department Care Team (Latest Contact Info) Description 08/21/2024 12:18 PM EDT - 08/21/2024 11:59 PM EDT Hospital Encounter [facility] [address] [place] [address] [address] ([facility]); Right lower quadrant abdominal pain Discharge Disposition: [...] In the past 12 months has th [employer], [employer], oil, or water company threatened to shut [...] 2 times a day. 90 tablet 08/15/2024 5 naloxone (Narcan) 4 mg/0.1 mL nasal [...] 4 times a day. 30 tablet 06/21/2024 traZODone (Desyrel) 50 MG tablet 1 (one) time each day at the same time. 07/30/2024 documented as of this encounter Miscellaneous Notes [...] Description 10/30/2024 10:45 AM EDT Office Visit [facility] General Surgery [address] [place] [address] Lidia Troncoso MD [address] [place] [address] documented as of this encounter [...] as of this encounter Care Teams Supervisor Intelligence Analyst Relationship Specialty Start Date End Date Champ Quiroz MD [address] [place] [address] PCP - General Internal Medicine 06/29/24 documented as of this encounter
--- OUTSIDE RECORDS SUMMARY | 2024-08-30 11:00 | XMS_ITS ---
Author Organization [facility] Address [address] [place] [address] Care Team Providers Care Concrete Crusher Loader Operator Name Role Phone Michaelle Rivas Primary Care Provider Champ Quiroz Unavailable [phone] Allergies Allergen (clinical drug ingredient) Drug/Non Drug Allergy documented on EMR Reaction Allergy Type Onset Date Status LATEX GLOVES (uncoded) Unknown Allergy Active acetaminophen / oxycodone Percocet stomach upset, sweating Drug Allergy Active Results Component Value Reference Range Notes COMPREHENSIVE METABOLIC PANE L (31589) Reviewed date:09/03/2024 09:41:31 AM Interpretation: Performing Lab:MAN, [facility] W[address] [facility], [facility] InstituteIrtmUL[address] Wil Bro Notes/Report: NON-FASTING; NON-FASTING GLUCOSE 104 65-99 mg/dL Fasting reference interval For someone without known diabetes, a glucose value between 100 and 125 mg/dL is consistent with prediabetes and should be confirmed with a follow-up test. UREA NITROGEN (BUN) 7 7-25 mg/dL CREATININE [...] date:09/03/2024 09:41:31 AM Interpretation: Performing Lab:CB, [facility] [address], [facility] CenterDjhbWZ[address] Wil Bro Notes/Report: NON-FASTING; NON-FASTING WHITE BLOOD [...] MPV 10.0 7.5-12.5 fL ABSOLUTE NEUTROPHILS 4948 3694-8727 cells/uL ABSOLUTE LYMPHOCYTES 2503 850-3900 cells/uL ABSOLUTE [...] Signs Temperature 97.5 degrees Fahrenheit 08/31/19 25 Blood pressure systolic 98 mm Hg 08/31/19 25 Blood pressure diastolic 60 mm Hg 025 Heart Rate 92 /min 08/30/2024 Height 5 ft 1 in in 08/30/2024 Weight 114 lbs 08/30/2024 BMI 21.54 kg/m2 08/30/2024 laying 98/58, sitting 98/56, standing 98/54 Encounters Encounter Location Date Provider Diagnosis [facility] [address] [place] [address] 08/30/2024 Michaelle Rob Vertigo R42 ; C. difficile colitis A04.72 and Atherosclerosis of [place] coronary artery of [place] heart without angina pectoris I25.10 Assessments Encounter [...] colitis (ICD-10 - A04.72) Extensive review of [facility] and [facility] records Abdomen soft, nontender Continue Vanc Keep Fu with Dr. Troncoso [facility] 08/30/2024 Atherosclerosis of [place] coronary artery of [place] heart without angina pectoris (ICD-10 - I25.10) Decrease metoprolol for low normal blood pressure and fatigue Keep FU with [facility] cardiology next week Plan Of Treatment Medication [...] stability C. difficile colitis Extensive review of [facility] and [facility] records Abdomen soft, nontender Continue Vanc Keep Fu with Dr. Troncoso [facility] Atherosclerosis of [place] co ronary artery of [place] heart without angina pectoris Decrease metoprolol for low normal blood pressure and fatigue Keep FU with [facility] cardiology next week Next Appt Details Follow Up: 4 Weeks, Reason: Provider Name:Champ Quiroz, 10/01/2024 03:15:00 PM, [address] [place] [facility] [address] [facility], [address], [place], [address], Progress Notes * Rere REESE ADOB: [birth year] (53 yo F)Acc No.[id number]:08/30/2024 Progress Notes Patient: Rere DICKSON Provider: Chelle Rivas APRN :1970 A ge:53 Y S ex:Female Date:08/30/2024 Address:[address] [place] [address] [place] [id number] Subjective: * Chief Complaints: * 1 . [...] disease, status post CABG May 08 at [facility], Sepsis, bowel ischemia and colostomy April/2024 at [facility]. * Surgical History: l t rotator [...] Travel outside [place]: no. 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 * Medications: T aking Vancomycin HCl , [...] colitis - A04.72 ?3. A therosclerosis of [place] coronary artery of [place] heart without angina pectoris - I25.10 Plan: * Treatment: 2. C . difficile colitis Notes: Extensive review of [facility] and [facility] records Abdomen soft, nontender Continue Vanc Keep Fu with Dr. Troncoso [facility] 3. A therosclerosis of [place] coronary artery of [place] heart without angina pectoris Decrease Metoprolol Tartrate Tablet, 25 MG, 1/2 tab, Orally, Twice a day, 14 days, 1, Refills 1.? Notes: Decrease metoprolol for low normal blood pressure and fatigue Keep FU with [facility] cardiology next week * Labs: * L ab: COMPREHENSIVE METABOLIC PANEL (70461) Value Reference Range G LUCOSE 104 H [...] 09:41 AM EDT ?Lab: CBC (INCLUDES DIFF/PLT) (2174)* Value Reference Range W LUMA BLOOD CELL [...] - % * A BSOLUTE NEUTROPHILS 4948 5431-1397 - cells/uL * L YMPHOCYTES 29.8 - [...] Date: 08/30/2024 Generated for Little catalan/Fior/Lataitting on: 09/17/2024 04:48 PM EDT History and Physical [...]
[2024-09-17] VITALS (12 sets, daily range): BP systolic 94–147; BP diastolic 61–87; PULSE 103–116; RESP 14–22; TEMP 36.7–37.2; O2SAT 95–99; BMI 22.0
--- OUTSIDE RECORDS SUMMARY | 2024-09-17 16:49 | XMS_ITS | Encounter Summary ---
Author Organization Healthcare Address [address] [place] [address] Care Team Providers Care Equity Analyst Name Role Phone Champ Quiroz MD Primary Care Provider [phone] Encounter Details Date Type Department Care Team (Late st Contact Info) Description 08/07/2024 Telephone [facility] General Surgery [address], [address] [place] [address] Rina Mason, JAMARI [facility] Social History Tobacco Use Types [...] the past 12 months has th e [employer], gas, oil, or water company threatened to [...] 4:33 PM EDT Patient went to [facility] ED for evaluation today. Nothing further at this time. * Telephone Encounter - Rina Mason RN - 08/07/2024 10:37 AM EDT Patient is having severe lower abdominal pain that won't go away. Advised to go to local Ed for evaluation. Also reports being admitted to [facility] earlier this month for abdominal pain and they did a CT.Will request records and images for review. Viri, please request CT images/ report and d/c summary from [facility]. documented in this encounter Plan of Treatment Upcoming Encounters Date Type Department Care Team (Late st Contact Info) Description 10/30/2024 10:45 AM EDT Office Visit [facility] General Surgery [address] [place] [address] Lidia Troncoso MD [address] [place] [address] documented as of this encounter [...] documented as of this encounter Care Teams Equity Analyst Relationship Specialty Start Date End Date Champ Quiroz MD [address] [place] [address] PCP - General Internal Medicine 06/29/24 documented as of this encounter
--- OUTSIDE RECORDS SUMMARY | 2024-09-17 16:49 | XMS_ITS | Encounter Summary ---
Author Organization Healthcare Address [address] [place] [address] Care Team Providers Care Bridge Crane Operator Name Role Phone Champ Quiroz MD Primary Care Provider [phone] Encounter Details Date Type Department Care Team (Late st Contact Info) Description 07/20/2024 Telephone [facility]acic [address], [address] [place] [address] Ana Luisa Simental RN [id number] [address] [id number] Social History Tobacco Use Types Packs/Day Years [...] in the past 12 m [facility], were you homeless or [...] the past 12 months has th e [employer], [employer], oil, or water [employer] threatened to shut off services in your [...] Description 10/30/2024 10:45 AM EDT Office Visit [facility] General Surgery [address] [place] [address] Lidia Troncoso MD [address] [place] [address] documented as of this encounter [...] documented as of this encounter Care Teams Bridge Crane Operator Relationship Specialty Start Date End Date Champ Quiroz MD [address] [place] [address] PCP - General Internal Medicine 06/29/24 documented as of this encounter
--- OUTSIDE RECORDS SUMMARY | 2024-09-17 16:49 | XMS_ITS | Patient Health Record ---
Author Organization [facility] Address [address] [place] [address] Care Team Providers Care Electric Range Preparer Name Role Phone Michaelle Rivas Primary Care Provider Champ Quiroz Unavailable [phone] Migration, Provider Unavailable Unavailable Allergies Allergen (clinical drug ingredient) Drug/Non Drug Allergy documented on EMR Reaction Allergy Type Onset Date Status LATEX GLOVES (uncoded) Unknown Allergy Active acetaminophen / oxycodone Percocet stomach upset, sweating Drug Allergy Active Results Component Value Reference Range Notes CBC (INCLUDES DIFF/PLT) (639 9) Reviewed date:09/03/2024 09:41:31 AM Interpretation: Performing Lab:[facility], [facility] [id number] [facility], [id number] Wil Bro Notes/Report: NON-FASTING; NON-FASTING WHITE BLOOD [...] MPV 10.0 7.5-12.5 fL ABSOLUTE NEUTROPHILS 4948 5136-6197 cells/uL ABSOLUTE LYMPHOCYTES 2503 850-3900 cells/uL ABSOLUTE MONOCYTES 655 200-950 cells/uL ABSOLUTE EOSINOPHILS 202 15-500 cells/uL ABSOLUTE BASOPHILS 92 0-200 cells/uL NEUTROPHILS 58.9 LYMPHOCYTES 29.8 MONOCYTES 7.8 EOSINOPHILS 2.4 BASOPHILS 1.1 COMPREHENSIVE METABOLIC PANE L (57761) Reviewed date:09/03/2024 09:41:31 AM Interpretation: Performing Lab:CB, [facility] [address], [facility]FgqzPQ[address] Wil Bro Notes/Report: NON-FASTING; NON-FASTING GLUCOSE 104 [...] 19 10-35 U/L ALT 15 6-29 U/L Medications Medication SIG (Take, Route, Frequency, Duration) Notes Start Date End Date Status Vancomycin HCl qid Activ e hydrOXYzine HCl 10 MG 1 tab orally every 8 hours; Duration: 30 days Active traZODone HCl 50 MG 1 tablet at bedtime as needed Orally Once a day; Duration: 30 days 07/30/2024 Active Rosuvastatin Calcium 40 MG 1 tablet Oral ly Once a day; Duration: 30 days Active Citalopram Hydrobromide 40 MG 1 tab(s) orally once a day; Duration: 90 days Active Metoprolol Tartrate 25 MG 1/2 tab Orally Twice a day; Duration: 14 days Active Combivent Respimat 20-100 MCG/ACT INHALE 1 PUFF BY MOUTH 4 TIMES DAILY; Duration: 30 days prn Active Primidone 50 MG 1 tab(s) orally twic e a day; Duration: 90 days Active Benzonatate 200 MG 1 capsule as needed Orally Three times a day; Duration: 10 days 09/03/2024 Active Loratadine 10 MG 1 tablet Orally Once a day Active buPROPion HCl ER (XL) 300 MG 1 tab(s) orally every 24 hours; Duration: 30 days Active Aspirin 81 [...] W/U Status Risk Notes Problem Primary insomnia (9010542) Primary insomnia (F51.01) Active confirmed Problem Psychophysiologic insomnia (655485913) Psychophysiologic insomnia (F51.04) Active confirmed Problem Essential tremor (389242825) Essential tremor (G25.0) Active confirmed Problem Panlobular emphysema (1371685) Panlobular emphysema (J43.1) Active confirmed Problem Left side sciatica (895619990746265) Sciatica, left side (M54.32) Active confirmed Problem Sciatica (51400177) Lumbago with sciatica, right side (M54.41) Active confirmed Problem Sciatica (60643599) Lumbago with sciatica, left side (M54.42) Active confirmed Problem Colostomy present (847230280) Colostomy status (Z93.3) Active confirmed Problem Mixed anxiety and depressive disorder (349638949) Depression with anxiety (F41.8) Active confirmed Problem Anxiety (33034995) Anxiety (F41.9) Active confi rmed Problem Vitamin B12 deficiency (non anemic) (15871009) B12 deficiency (E53.8) Active confirmed Problem Acute exacerbation of chronic obstructive airways disease (656670840) COPD exacerbation (J44.1) Active confirmed Problem Atherosclerosis of coronary artery without angina pectoris (403260180371791) Atherosclerosis of [place] coronary artery of [place] heart without angina pectoris (I25.10) Active confirmed Problem Disorder of skin AND/OR subcutaneous tissue (91024987) Skin lesions (L98.9) Active confirmed Vital Signs Heart Rate 92 /min 08/30/2024 laying 98/58, s itting 98/56, standing 98/54 Temperature 97.5 degrees Fahrenheit 08/30/2024 layi ng 98/58, sitting 98/56, standing 98/54 Blood pressure diastolic 60 mm Hg 08/30/2024 lay ing 98/58, sitting 98/56, standing 98/54 Height 5 ft 1 in in 08/30/2024 laying 98/58, s itting 98/56, standing 98/54 Blood pressure systolic 98 mm Hg 08/30/2024 layi ng 98/58, sitting 98/56, standing 98/54 Weight 114 lbs 08/30/2024 laying 98/58, s itting 98/56, standing 98/54 BMI 21.54 kg/m2 08/30/2024 laying 98/58, s itting 98/56, standing 98/54 Encounters Encounter Location Date Provider Diagnosis [facility] [address] [place] [address] 05/19/2024 Provider Migration Depression with anxiety F41.8 and COPD exacerbation J44.1 [facility] [address] [address] 10/21/2023 Michaelle McNees Pain in joints of ri ght hand M25.541 and Pain in joints of left hand M25.542 [facility] [address] [address] 12/29/2023 Champ Quiroz Acute bronchitis, unspecified organism J20.9 ; Subacute cough R05.2 and Sciatica, left side M54.32 [facility] [address] [facility] [address] [place] [address] 04/20/2024 Michaelle McNees Depression with anxi ety F41.8 and COPD exacerbation J44.1 [facility] [address] [place] [address] 07/02/2024 Champ Quirzo Tremor R25.1 ; Atherosclerosis of [place] coronary artery of [place] heart without angina pectoris I25.10 ; Anxiety F41.9 ; Hospital discharge follow-up Z09 ; Dysuria R30.0 and Colostomy present Z93.3 [facility] [address] [place] [address] 07/18/2024 Champ Quiroz Pelvic pain in femal e R10.2 and Panlobular emphysema J43.1 [facility] [address] [facility] [address] [place] [address] 07/30/2024 Champ Quiroz C. difficile colitis A04.72 ; Primary insomnia F51.01 ; Colostomy status Z93.3 and Hospital discharge follow-up Z09 [facility] [address] [place] [address] 08/20/2024 Champ Quiroz Atherosclerosis of [place] coronary artery of [place] heart without angina pectoris I25.10 ; Colostomy status Z93.3 and Hospital discharge follow-up Z09 [facility] [address] [place] [address] 08/30/2024 Michaelle McNees Vertigo R42 ; C. difficile colitis A04.72 and Atherosclerosis of [place] coronary artery of [place] heart without angina pectoris I25.10 [facility] [address] [place] [address] 10/21/2023 Michaelle McNees [facility] [address] [place] [address] 11/28/2023 Michaelle McNees [facility] [address] [place] [address] 02/06/2024 Michaelle McNees [facility] [address] [place] [address] 04/20/2024 Michaelle McNees [facility] [address] [place] [address] 07/20/2024 Michaelle McNees Hypokalemia E87.6 [facility] [address] [place] [address] 07/20/2024 Michealle McNees [facility] [address] [place] [address] 07/24/2024 Michaelle McNees [facility] [address] [place] [address] 08/09/2024 Michaelle McNees [facility] [address] [address] 09/03/2024 Michaelle McNees Assessments Encounter Date Diagnosis (ICD [...] antibiotics as listed below. Continue Combivent inhaler. 10/21/2023 Pain in joints of right hand [...] be helpful for her 07/02/2024 Atherosclerosis of [place] coronary artery of [place] heart without angina pectoris (ICD-10 - I25.10) Status post bypass. On appropriate medication 07/18/2024 Panlobular emphysema (ICD-10 - J43.1) Stable. Off cigarettes, continue inhalers. 07/18/2024 Pelvic pain in female (ICD-10 - R10.2) DIAL MARKER evaluation. Possible ongoing problems from catheter but will have them take a look 07/20/2024 Hypokalemia (ICD-10 - E87.6) 08/30/2024 Vertigo (ICD-10 - R42) Reassurance. Discussed [...] colitis (ICD-10 - A04.72) Extensive review of [facility] and [facility] records Abdomen soft, nontender Continue Vanc Keep Fu with Dr. Troncoso [facility] 08/20/2024 Colostomy status (ICD-10 - Z93.3) Infection resolved, following up with GI/GI surgery 08/20/2024 Atherosclerosis of [place] coronary artery of [place] heart without angina pectoris (ICD-10 - I25.10) Overall doing fairly well. No changes in plan. Stable from a vascular standpoint. 07/30/2024 Primary insomnia (ICD-10 - F51.01) Trazodone low-dose for insomnia issues. Wellbutrin and citalopram have been helping with anxiety during the day. 07/30/2024 C. difficile colitis (ICD-10 - A04.72) Has finished up vancomycin from hospital discharge. Hard to tell if diarrhea is better because of colostomy status but has no pain, fever or abdominal swelling 05/19/2024 Depression with anxiety (ICD-10 - F41.8) 05/19/2024 COPD exacerbation (ICD-10 - J44.1) 07/30/2024 Colostomy status (ICD-10 - Z93.3) Discussed that she would be a good candidate for reversal, they are meant to be some imaging done to make sure that her intestinal status is viable 08/20/2024 Hospital discharge follow-up (ICD-10 - Z09) Personally reviewed H&P and discharge summary as available from hospital discharge documentation. Reviewed pertinent labs and test done in the hospital. Personally reconciled medication. 08/30/2024 Atherosclerosis of [place] coronary artery of [place] heart without angina pectoris (ICD-10 - I25.10) Decrease metoprolol for low normal blood pressure and fatigue Keep FU with [facility] cardiology next week 12/29/2023 Sciatica, left side (ICD-10 - M54.32) [...] 05/06/2006 CT Scan : Abdomen, with contrast CT Scan : Abdomen, with contrast 007 N-cbc 10/13/2006 MRI : Coccyx 06/17/2006 Mammogram : Bilateral 12/08/2021 M-Diarrhea Panel, PCR 01/25/2022 M-Diarrhea Panel, PCR 12/31/2022 Physical Therapy Eval and Treat 10/29/19 Future Test Test Name Order Date BASIC METABOLIC PANEL (51352) 07/23/2024 MAGNESIUM (622) 07/23/2024 Next Appt Details Provider Name:Champ Quiroz, 10/01/2024 03:15:00 PM, [address], [address], [place], [address], Insurance Providers Payer Name Payer Address Payer Phone Subscriber Number Group Number Insured Name Patient Relationship to Insured Coverage Start Date Coverage End Date [employer] [address] [address] [place] [address] [id number] [facility] Rere Reese Self - patient is the [...] status post CAB G May 08 at [facility] Sepsis, bowel ischemia and colostomy Mar at [facility] Surgical History Surgery Date(Month/Year) lt rotator cuff 2020 rt hand surgery 01/2023 colon resection 04/30/24 Hospitalization History Reason Date(Month/Year) [facility]- abd pain 07/2024 Septic 07/24/2024 - heart attach 04/30/2024-06/28/24 [facility] 01/2022
--- OUTSIDE RECORDS SUMMARY | 2024-09-17 16:49 | XMS_ITS | Encounter Summary ---
Author Organization Healthcare Address [address] [place] [address] Care Team Providers Care Editor News Name Role Phone Champ Quiroz MD Primary Care Provider [phone] Encounter Details Date Type Department Care Team (Late st Contact Info) Description 08/22/2024 Results Follow-Up Colorectal Surgery [address] [place] [address] Lidia Troncoso MD [address] [facility] [address] [place] [address] Social History Tobacco Use Types Packs/Day Years [...] In the past 12 months has e [employer], gas, oil, or water [employer] threatened to shut off services in your [...] Description 10/30/2024 10:45 AM EDT [facility] Visit [facility] [address] [place] [address] Lidia Troncoso MD [address] [place] [address] documented as of this encounter [...] documented as of this encounter Care Teams Editor News Relationship Specialty Start Date End Date Champ Quiroz MD [address] [place] [address] [place] [address] PCP - General Internal Medicine 06/29/24 documented as of this encounter
--- OUTSIDE RECORDS SUMMARY | 2024-09-17 16:49 | XMS_ITS | Clinical Summary ---
Author Organization [facility] Address [address] [place] [address] Care Team Providers Care Watch Leader Name Role Phone Champ Quiroz MD Primary Care Provider [phone] Allergies Active Allergy Reactions Criticality Noted Date [...] other nostril if symptoms continue 1 each Active Additional Information Patient not taking.Reported on 08/21/2024 rosuvastatin (Crestor) 40 MG tablet Take 1 tablet by mouth nightly. 30 tablet 2 5 06/22/19 26 Active simethicone (Mylicon) 80 MG chewable tablet Chew 1.5 tablets 4 times a day. 30 tablet Active aspirin 81 MG chewable tablet Chew 1 tablet daily. 30 tablet 2 5 07/19/19 26 Active potassium chloride CR (Klor-Con M20) 20 MEQ ER tablet Take 2 tablets by mouth daily. Do not crush or chew. 60 tablet 5 07/19/19 26 Active traZODone (Desyrel) 50 MG tablet 1 (one) time each day at the same time. Active metoprolol tartrate (Lopressor) 25 MG tablet Take 1.5 tablets by mouth 2 times a day. 90 tablet 5 10/15/19 25 Active Active Problems Problem Noted Date Diagnosed Date [...] Encounters Date Type Department Care Team Description 09/12/2024 Telephone [facility] General Surgery [address], 1[address] [place] [address] Lidia Troncoso MD HCN Same Day Appt/Overbook Request 08/22/2024 Results Follow-Up Colorectal Surgery [address] [place] [address] Lidia Troncoso MD 08/21/2024 12:18 PM EDT - 08/21/2024 11:59 PM EDT Hospital Encounter [facility] [address]nd [place] [address] ([facility]/HCC); Right lower quadrant abdominal pain Discharge Disposition: Home or Self Care 08/21/2024 10:00 AM EDT Office Visit [facility] General Surgery 0 [facility], [address] [place] [address] Lidia Troncoso MD 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) (Primary Dx); Right lower quadrant abdominal pain 08/21/2024 Telephone [facility] General Surgery [address], [address] [place] [address] Lidia Troncoso MD HCN Clinical Concern/Question; HCN Status Update Call #1; HCN Status Update Call #2 08/21/2024 Travel 08/20/2024 Telephone [facility] General Surgery [address], [address] [place] [address] Lidia Troncoso MD HCN - Patient Message (Reschedule due to transportation ) 08/15/2024 Refill [facility] Cardiothoracic [address] [place] [address], [address] [place] [phone] Ana Luisa Simental RN 08/09/2024 Orders Only External Location [address] [place] [address] Millie Ambrose DO 08/07/2024 Orders Only External Location [address] [place] [phone] Provider, External 08/07/2024 Telephone [facility] General Surgery [address], [address] [place] [address] Rina Mason RN 07/31/2024 9:00 AM EDT Office Visit [facility] General Surgery [address], [address] [place] [address] Lidia Troncoso MD S/P colostomy ([facility]) (Primary Dx); S/P colon resection 07/31/2024 Travel 07/21/2024 Orders Only External Location [address] [place] [address] Sundeep Fisher MD 07/20/2024 Telephone [facility] Cardiothoracic [address], [address] [place] [address] Ana Luisa Simental RN 07/18/2024 11:00 AM EDT Office Visit [facility] Cardiothoracic [address], [address] [place] [phone] Maite Austin MD CAD, multiple vessel (Primary Dx); Tobacco use; Anxiety and depression; Chronic obstructive pulmonary disease, unspecified COPD type ([facility]); NSTEMI (non-ST elevated myocardial infarction) ([facility]); THOM (obstructive sleep apnea); S/P CABG x 4; Post-op pain 07/18/2024 9:52 AM EDT - 07/18/2024 11:59 PM EDT Hospital Encounter [facility] Radiology [address], [address] [place] [id number] CAD, multiple vessel Discharge Disposition: Home or Self Care 07/18/2024 Travel 06/29/2024 2:30 PM EDT Office Visit [facility] General Surgery [address], [address] [place] [address] Lidia Troncoso MD 06/29/2024 Travel 06/26/2024 Telephone [facility] Cardiothoracic [address], [address] [place] [address] Ana Luisa Simental RN 06/26/2024 Telephone [facility] General Surgery [address], [address] [place] [address] Judy Mancuso MD HCN Clinical Concern/Question 06/25/2024 Telephone [facility] General Surgery [address], [address] [place] [address] Katharine Urbano RN 06/21/2024 Travel 06/20/2024 Travel 06/19/2024 Travel 06/18/2024 Travel 06/17/2024 Travel 05/01/2024 11:01 PM EDT - 06/21/2024 3:41 PM EDT Hospital Encounter [facility] [address] [place] [address] Edson Mcclure DO LondonErum Moctezuma MD Reda, [...] the past 12 months has th e [employer], gas, oil, or water [employer] threatened to shut off services in your [...] Visit [facility] [address], [address] [place] [address] Lidia Troncoso MD [address] [place] [address] Health Maintenance Due Date Last [...] 11/03/2019 [facility]-Zoster Vaccines (1 of 2) 11/03/2019 HUX-[id number]-84 Vaccine (1 - season) 2023 [facility]-Influenza Vaccine (#1) 10/15/202412/08, 11/06/2018, [...] [employer] Implanted Type Area Dude Ranch Manager Device Identifier Shelf Expiration Date Model / Serial / Lot Pledget Ptfe [place] 4.8mm X 6mm - [id number] Implanted:05/06 by Maite Austin MD at [facility] (Quantity not on file) [id number] / / Procedures Procedure Name Priority Date/Time Associated Diagnosis Comments CT ABDOMEN PELVIS W IV CONTRAST STAT 08/21/2024 1:08 PM EDT 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) Right lower quadrant abdominal pain CT OUTSIDE [...] W/O DIFFERENTIAL Routine 06/17/2024 3:53 AM EDT from Last 3 Months Results [...] Tomogra phy 08/09/2024 7:35 PM EDT Millie Ambrose DO IMG CT PROCEDURES Final Result * CT MSK OUTSIDE IMAGES (08/07/2024 12:27 PM EDT) Anatomical Region Laterality Modality Computed Tomogra phy 08/07/2024 12:2 7 PM EDT External Provider IMG CT PROCEDURES Final Result * CT Angio Abdomen Pelvis (07/21/2024 7:18 PM EDT) Anatomical Region Laterality Modality Abdomen, Pelvis Computed Tomogra phy 07/21/2024 7:18 PM EDT Result [facility] Sundeep Fisher MD IMG CT PROCEDURES Final Result * ECG Adult (07/18/2024 11:22 AM EDT) EKG DIAGNOSIS CLASS Abnormal MUSE ECG Ventricular Rate 109 BPM MUSE ECG Atrial Rate 109 BPM MUSE ECG KS Interval 120 ms MUSE ECG QRSD Interval 70 ms MUSE ECG QT Interval 394 ms MUSE ECG QTC Interval 530 ms MUSE ECG P [place] 77 degrees MUSE ECG R [place] 79 degrees MUSE ECG T Wave [place] 100 degrees MUSE ECG Diagnosis Sinus tachycardia [...] 10:14 AM EDT) Only the most recent of6 resultswithin the time period is included. WBC Count 13.01(H) 3.70 - 10.30 10*3/uL LAB HEMATOLOGY METHOD 07/18/2024 11:08 AM EDT [facility] RBC Count 3.97 3.90 - 5.20 10*6/uL LAB HEMATOLOGY METHOD 07/18/2024 11:08 AM EDT [facility] HGB 11.5 11.2 - 15.7 g/dL LAB HEMATOLOGY METHOD 07/18/2024 11:08 AM EDT [facility] HCT 35.5 34.0 - 45.0 % LAB HEMATOLOGY METHOD 07/18/2024 11:08 AM EDT [facility] Platelet Count 582(H) 155 - 369 10*3/uL LAB HEMATOLOGY METHOD 07/18/2024 11:08 AM EDT [facility] MCV 89 79 - 98 fL LAB HEMATOLOGY METHOD 07/18/2024 11:08 AM EDT [facility] MCH 29.0 26.0 - 32.0 pg LAB HEMATOLOGY METHOD 07/18/2024 11:08 AM EDT [facility] MCHC 32.4 30.7 - 35.5 g/dL LAB HEMATOLOGY METHOD 07/18/2024 11:08 AM EDT [facility] RDW 14.9(H) 11.5 - 14.5 % LAB HEMATOLOGY METHOD 07/18/2024 11:08 AM EDT [facility] MPV 9.1 8.8 - 12.5 fL LAB HEMATOLOGY METHOD 07/18/2024 11:08 AM EDT [facility] nRBC 0.0 <=0.0 per 100 WBCs LAB HEMATOLOGY METHOD 07/18/2024 11:08 AM EDT [facility] Blood Venous blood specimen / Unknown Venipuncture / Unknown 07/18/2024 10:14 AM EDT 07/18/2024 10:14 AM EDT us Maite Austin MD LAB BLOOD ORDERABLES Final Resu lt [facility] [address] [place] [address] * (ABNORMAL) Basic Metabolic Panel, Plasma (07/18/2024 10:14 AM EDT) [facility] Glucose, Plasma 126(H) 74 - 99 mg/dL 07/18/2024 12:13 PM EDT [facility] BUN, Plasma 5(L) 7 - 21 mg/dL 07/18/2024 12:13 PM EDT [facility] Creatinine, Plasma 0.54(L) 0.60 - 1.10 mg/dL 07/18/2024 12:13 PM EDT [facility] BUN/Creatinine Ratio 9 07/18/2024 12:13 PM EDT [facility] Sodium, Plasma 137 136 - 145 mmol/L 07/18/2024 12:13 PM EDT [facility] Potassium, Plasma 2.5(LL) 3.6 - 4.9 mmol/L 07/18/2024 12:13 PM EDT [facility] Chloride, Plasma 95(L) 97 - 107 mmol/L 07/18/2024 12:13 PM EDT [facility] CO2, Plasma 29 22 - 29 mmol/L 07/18/2024 12:13 PM EDT [facility] Anion Gap 13 6 - 16 mmol/L 07/18/2024 12:13 PM EDT [facility] Total Calcium, Plasma 8.2(L) 8.9 - 10.2 mg/dL 07/18/2024 12:13 PM EDT [facility] eGFRcr 109.6 mL/min/1.7 3m*2 07/18/2024 12:13 PM EDT [facility] Comment:Reported eGFRcr in m L/min/1.73m2 is based the CKD-EPI 2020 equation that does not use a race coefficient. Blood Venous blood specimen / Unknown Venipuncture / Unknown 07/18/2024 10:14 AM EDT 07/18/2024 10:14 AM EDT us Maite Austin MD LAB BLOOD ORDERABLES Final Resu lt [facility] [address] [place] [address] * XR Chest 2 Views (07/18/2024 9:58 [...] 4:36 AM EDT) Only the most recent of3 [...] MD on 06/21/2024 7:27 AM Trinity Yousif FELLER MACHINE OPERATOR IMG XR PROCEDURES Final Result * XR Abdomen 1 View (06/21/2024 4:36 AM EDT) Only the most recent of5 resultswithin the time period is included. Anatomical [...] 2:59 AM EDT) Only the most recent of5 resultswithin the time period is included. Magnesium, Plasma 1.7(L) 1.9 - 2.4 mg/dL 06/21/2024 3:52 AM EDT [facility] Blood Venous blood specimen / Unknown Venipuncture / Unknown 06/21/2024 2:59 AM EDT 06/21/2024 3:23 AM EDT Trinity Yousif APRN LAB BLOOD ORDERABLES Final Res ult [facility] [address] [place] [address] * (ABNORMAL) Comprehensive metabolic panel (06/21/2024 2:59 AM EDT) Only the most recent of5 resultswithin the time period is included. Glucose, Plasma 94 74 - 99 mg/dL 06/21/2024 3:52 AM EDT [facility] BUN, Plasma 4(L) 7 - 21 mg/dL 06/21/2024 3:52 AM EDT [facility] Creatinine, Plasma 0.63 0.60 - 1.10 mg/dL 06/21/2024 3:52 AM EDT [facility] BUN/Creatinine Ratio 6 06/21/2024 3:52 AM EDT [facility] Sodium, Plasma 131(L) 136 - 145 mmol/L 06/21/2024 3:52 AM EDT [facility] Potassium, Plasma 3.9 3.6 - 4.9 mmol/L 06/21/2024 3:52 AM EDT [facility] Chloride, Plasma 98 97 - 107 mmol/L 06/21/2024 3:52 AM EDT [facility] CO2, Plasma 25 22 - 29 mmol/L 06/21/2024 3:52 AM EDT [facility] Anion Gap 8 6 - 16 mmol/L 06/21/2024 3:52 AM EDT [facility] Total Calcium, Plasma 8.1(L) 8.9 - 10.2 mg/dL 06/21/2024 3:52 AM EDT [facility] Total Protein 6.7 6.3 - 7.9 g/dL 06/21/2024 3:52 AM EDT [facility] Albumin, Plasma 2.5(L) 3.5 - 5.2 g/dL 06/21/2024 3:52 AM EDT [facility] AST, Plasma 31 10 - 35 U/L 06/21/2024 3:52 AM EDT [facility] ALT, Plasma 54(H) 10 - 35 U/L 06/21/2024 3:52 AM EDT [facility] Alkaline Phosphatase, Plasma 155(H) 35 - 104 U/L 06/21/2024 3:52 AM EDT [facility] Total Bilirubin, Plasma 0.2 0.2 - 1.1 mg/dL 06/21/2024 3:52 AM EDT [facility] eGFRcr 105.6 mL/min/1.7 3m*2 06/21/2024 3:52 AM EDT [facility] Comment:Reported eGFRcr in m L/min/1.73m2 is based the CKD-EPI 2020 equation that does not use a race coefficient. Blood Venous blood specimen / Unknown Venipuncture / Unknown 06/21/2024 2:59 AM EDT 06/21/2024 3:23 AM EDT us Trinity Yousif APRN LAB BLOOD ORDERABLES Final Res ult [facility] [address] [place] [address] * N-Terminal Probnp, Plasma (06/20/2024 4:45 AM EDT) Only the most recent of2 resultswithin the time period is included. N-Terminal, PROBNP, Plasma 652 0 - 899 pg/mL 06/20/2024 6:04 AM EDT [facility] Blood Venous blood specimen / Unknown Venipuncture / Unknown 06/20/2024 4:45 AM EDT 06/20/2024 5:24 AM EDT us Dulce Alamo APRN LAB BLOOD ORDERABLES Final R esult Performing Organization Address City/[facility] [address]/ZIP Co de Phone Number [facility] [address] [place] [address] * (ABNORMAL) POCT glucose meter (06/17/2024 8:09 PM EDT) Only the most recent of4 [...] Comment 06/17/2024 8:11 PM EDT [facility] Manager Learning ID Sam, [place] 025 8:11 PM EDT HEALTHCARE LAB Device ID [id number] 06/17/2024 8:11 PM EDT HEALTHCARE LAB Specimen Type POC Capillary 06/17/2024 8:11 PM EDT [facility] Blood Capillary blood specimen / Unknown 06/17/2024 8:09 PM EDT 06/17/2024 8:11 PM EDT us Maite Austin MD LAB POINT OF CARE TE ST DOCKED DEVICE UNSOLICITED RESULTS Final Result Performing Organization Address City/[facility] [address]/ZIP Co de Phone Number [facility] [address] [place] [address] from Last 3 Months Insurance [facility] MEDICAID Advance Directives * Full Code (Latest [...] 12:06 PM 05/06/2024 8:27 PM Care Teams Watch Leader Relationship Specialty Start Date End Date Champ Quiroz MD [address] [facility] [place] [address] PCP - General Internal Medicine 06/29/24
--- OUTSIDE RECORDS SUMMARY | 2024-09-17 16:49 | XMS_ITS | Encounter Summary ---
Author Organization Healthcare Address [address] [place] [address] Care Team Providers Care Bouffant Curtain Machine Tender Name Role Phone Pcp, No Primary Care Provider Champ Butler MD Primary Care Provider + [phone] Encounter Details Date Type Department Care Team (Late st Contact Info) Description 05/14/2024 Lab Requisition [facility] [address] [place] [address] Tom Dyson MD [address] [facility] [address] [place] [address] Encounter for general adult medical examination without [...] any time in the past 12 m [facility], were you homeless or living [...] [address], [address] [place] [address] Lidia Troncoso MD [address] [place] [address] documented as of this encounter [...] at day 1 05/15/2024 11:17 AM EDT [facility] Swab (Nares and Jacey Rectal) 05/14/2024 8:24 AM EDT 05/14/2024 2:12 PM EDT us Tom Dyson MD LAB MICROBIOLOGY - GEN ERAL ORDERABLES Final Result [facility] [address] [place] [address] documented in this encounter Visit Diagnoses Diagnosis [...] documented as of this encounter Care Teams Bouffant Curtain Machine Tender Relationship Specialty Start Date End Date Pcp, [place] [address] PCP - General Family Medicine 04/04/24 06/28/24 Champ Quiroz MD [address] [place] [address] PCP - General Internal Medicine 06/29/24 documented as of this encounter
--- OUTSIDE RECORDS SUMMARY | 2024-09-17 16:49 | XMS_ITS | Encounter Summary ---
Author Organization [facility] Address [address] [place] [address] Care Team Providers Care Advanced Solutions Architect Name Role Phone Champ Quiroz MD Primary Care Provider + [phone] Encounter Details Date Type Department Care Team [...] the past 12 months has th e [employer], gas, oil, or water company threatened to [...] Description 10/30/2024 10:45 AM EDT Office Visit [facility] [address], [address] [place] [address] Lidia Troncoso MD [address] [place] [address] documented as of this encounter Goals Goal [...] documented as of this encounter Care Teams Advanced Solutions Architect Relationship Specialty Start Date End Date Champ Quiroz MD [address] [place] [id number] PCP - General Internal Medicine 06/29/24 documented as of this encounter
--- OUTSIDE RECORDS SUMMARY | 2024-09-17 16:49 | XMS_ITS | Encounter Summary ---
Author Organization Healthcare Address [address] [place] [address] Care Team Providers Care Manager Of Distribution Name Role Phone Pcp, No Primary Care Provider Champ Butler MD Primary Care Provider + [phone] Encounter Details Date Type Department Care Team (Late st Contact Info) Description 05/21/2024 Lab Requisition [facility] [address] [place] [address] Tom Dyson MD [address] [facility] [address] [place] [phone] Encounter for general adult medical examination without [...] any time in the past 12 m [facility], were you homeless or living [...] [facility] General Surgery [address], [address] [place] [address] Lidia Troncoso MD [address] [place] [address] documented as of this encounter [...] at day 1 05/22/2024 8:46 AM EDT [facility] Swab (Nares and Jacey Rectal) 05/21/2024 11:00 AM EDT 05/21/2024 11:55 AM EDT us Tom Dyson MD LAB MICROBIOLOGY - GEN ERAL ORDERABLES Final Result [facility] [address] [place] [address] documented in this encounter Visit Diagnoses Diagnosis [...] as of this encounter Care Teams Manager Of Distribution Relationship Specialty Start Date End Date Pcp, Katherine [address] [place] [address] PCP - General Family Medicine 04/04/24 06/28/24 Champ Quiroz MD [address] [place] [address] PCP - General Internal Medicine 06/29/24 documented as of this encounter
--- OUTSIDE RECORDS SUMMARY | 2024-09-17 16:49 | XMS_ITS | Clinical Summary ---
Author Organization [facility] Address [address] [place] [address] Care Team Providers Care Fast Food Restaurant Manager Name Role Phone Provider, No Known Primary Care Provider [phone] Allergies No known active allergies Medications propranolol (INDERAL) 20 MG tablet Take 20 mg by mouth 3 (Three) Times a Day. Active escitalopram (LEXAPRO) 20 MG tablet Take 20 mg by mouth 2 (Two) Times a Day. Active Social History Tobacco Use Types Packs/Day Years Used Date Smoking Tobacco: Every Day Abuse Screen Answer Date Recorded Unsafe at Home or Work/School Not on file Feels Threatened by Someone? Not on file 10/2022 Does Anyone Keep You from Co ntacting Others or Doint Things Outside the Home? Not on file 11/22/2022 Physical Sign of Abuse Present Not on file 1 Housing Stability Answer Date Recorded Current Living Arrangements Not on file 10/2022 Potentially Unsafe Housing Conditions Not on brittany e 11/22/2022 Family and Community Support Answer Aguilar e Recorded Help with Day-to-Day Activities Not on file 11/22/2022 Lonely or Isolated Not on file 11/22/2022 Employment Answer Date Recorded Do you want help finding or keeping work or a reza b? Not on file 11/22/2022 Disabilities Answer Date Recorded Concentrating, Remembering, or Making Decisions Difficulty Not on file 11/22/2022 Doing Errands Independently Difficulty Not on fi le 11/22/2022 Education Answer Date Recorded Help with school or training? Not on file Preferred Language Not on file 11/22/2022 Comments No Sex and Gender Information Value Date Recorded Sex Assigned at Not on file Legal Sex Female 11:54 AM EDT Gender Identity Not on file Sexual Orientation Not on file Last Filed Vital Signs Vital Sign Reading Time Taken Comments Blood Pressure 112/70 10/02/2017 1:46 PM EDT Pulse 70 10/02/2017 1:46 PM EDT Temperature 36.6 C (97.9 F) 10/02/2017 1:46 PM EDT Respiratory Rate 14 10/02/2017 1:46 PM EDT Oxygen Saturation 97% 10/02/2017 1:46 PM EDT Inhaled Oxygen Concentration - - Weight 57.2 kg (126 lb) 10/02/2017 1:46 PM EDT Height 154.9 cm (5' 1 ) 10/02/2017 1:46 PM EDT Body Mass Index 23.81 10/02/2017 1:46 PM EDT Plan of Treatment Health Maintenance Due Date Last Done Comments Annual Gynecologic Pelvic and Breast Exam 1969 TDAP/TD VACCINES (1 - Tdap) 1988 MAMMOGRAM 2009 COLOGUARD 2014 COLON CANCER SCREENING 5 YEAR SIGMOIDOSCOPY 2014 COLONOSCOPY 2014 [address] CANCER SCREENING 2014 CT COLONOGRAPHY 2014 FECAL OCCULT BLOOD TEST 2014 FIT Testing (1 year) 2014 ANNUAL PHYSICAL 10/02/2017 HEPATITIS C SCREENING 10/02/2017 Pneumococcal Vaccine 50+ (1 of 1 - PCV) 11/03/2019 ZOSTER VACCINE (1 of 2) 11/03/2019 COVID-19 Vaccine (1 - 2023- season) 2023 INFLUENZA VACCINE 11/14/2024 Insurance Care Teams Fast Food Restaurant Manager Relationship Specialty Start Date End Date Provider, No Known [place], [place] [id number] PCP - General 01/12/16
--- OUTSIDE RECORDS SUMMARY | 2024-09-17 16:50 | XMS_ITS | Encounter Summary ---
Author Organization Healthcare Address [address] [place] [address] Care Team Providers Care Scrap Materials Buyer Name Role Phone Champ Quiroz MD Primary Care Provider + [phone] Reason for Visit * Reason Onset Date Comments HCN Clinical Concern/Question 08/21/2024 HCN Status Update Call #1 08/21/2024 HCN Status Update Call #2 08/21/2024 Encounter Details Date Type Department Care Team (Late st Contact Info) Description 08/21/2024 Telephone [facility] General Surgery [address], [address] [place] [address] Lidia Troncoso MD [address] [place] [address] HCN Clinical Concern/Question; HCN Status Update Call #1; HCN Status Update Call #2 Social History Tobacco Use Types Packs/Day Years [...] Telephone Encounter - Rina Mason RN - 08/31/2024 10:46 AM EDT Patient called back. Had a good day yesterday, however woke up shaking this morning. Unsure what iscausing the shaking. Did get diagnosed with vertigo yesterday at PCP office. Has Cardiology appt . Offered follow up on 09/[address] Troncoso. Will check with son to see if he can bring her that day and call back. * Telephone Encounter - Rina Mason RN - 08/30/2024 10:42 AM EDT Called patient. No answer, left detailed message. * Telephone Encounter - Kerry Hutchinson - 08/29/2024 4:16 PM EDT Status Update Call #2 2nd call regarding the status of the initial request. Best contact number: [phone] (mobile) Optimal time of day to reach caller: ANYTIME Additional comments/information from caller: patient is requesting a call back she spoke with Tuesday and has not gotten a response back from the provider , please follow-up Note: Please do not reply to this message. Follow-up communication and further actions as a result of this message need to be communicated with the patient directly, if the patient is not active onMyChart. If the patient is active on MyChart, they will receive notification of the communication/outcome via [employer]. * Telephone Encounter - Pamela Cordero - 08/27/2024 12:20 PM EDT Status Update Call #1 1st call regarding the status of the initial request. Pt calling stating that the pain she was having when she first called is persistent. She doesn't have an appetite and she has barely had a bm. Please call Best contact number: [phone] (mobile) Optimal time of day to reach caller: ANYTIME Additional comments/information from caller: None Note: Please do not reply to this message. Follow-up communication and further actions as a result of this message need to be communicated with the patient directly, if the patient is not active onMyChart. If the patient is active on MyChart, they will receive notification of the communication/outcome via [employer]. * Telephone Encounter - Rina Mason RN - 08/21/2024 5:40 PM EDT Patient has went to local ED for evaluation. CRS has been contacted for consult via [facility]. * Telephone Encounter - Kerry Hutchinson - 08/21/2024 1:40 PM EDT Clinical Concern/Question Reason for Call: Patient says she is in a lot of pain , she says she will like a call back from a nurse she says she is still in [place] , requesting a call hiram SCHMIDT Best contact number: [phone] (mobile) Optimal time of day to reach caller: ANYTIME Additional comments/information from caller: None Note: Please do not reply to this message. Follow-up communication and further actions as a result of this message need to be communicated with the patient directly, if the patient is not active onMyChart. If the patient is active on MyChart, they will receive notification of the communication/outcome via [employer]. documented in this encounter Plan of Treatment Upcoming Encounters Date Type Department Care Team (Late st Contact Info) Description 10/30/2024 10:45 AM EDT Office Visit [facility] General Surgery [address] [place] [address] Lidia Troncoso MD [address] [place] [address] documented as of this encounter [...] documented as of this encounter Care Teams Scrap Materials Buyer Relationship Specialty Start Date End Date Champ Quiroz MD [address] [place] [address] PCP - General Internal Medicine 06/29/24 documented as of this encounter
--- OUTSIDE RECORDS SUMMARY | 2024-09-17 16:50 | XMS_ITS | Encounter Summary ---
Author Organization Healthcare Address [address] [place] [address] Care Team Providers Care Dietitian Consultant Name Role Phone Champ Quiroz MD Primary Care Provider [phone] Encounter Details Date Type Department Care Team (Late st Contact Info) Description 08/09/2024 Orders Only External Location [address] [place] [address] Millie Ambrose, DO [address] [place] [id number] Social History Tobacco Use Types Packs/Day Years [...] in a retirement (including now)? No 05/02/2024 AUDIT-C Answer Date [...] the past 12 months has th e [employer], gas, oil, or water [employer] threatened to shut off services in your [...] Description 10/30/2024 10:45 AM EDT Office Visit [facility] General Surgery [address], 1st [place] [phone] Lidia Troncoso MD [address] [place] [address] documented as of this encounter Goals Goal [...] documented as of this encounter Care Teams Dietitian Consultant Relationship Specialty Start Date End Date Champ Quiroz MD [address] [place] [address] PCP - General Internal Medicine 06/29/24 documented as of this encounter
--- OUTSIDE RECORDS SUMMARY | 2024-09-17 16:50 | XMS_ITS | Encounter Summary ---
Author Organization Healthcare Address [address] [place] [address] Care Team Providers Care Software Configuration Engineer Name Role Phone Champ Quiroz MD Primary Care Provider + [phone] Reason for Visit * Reason Onset Date Comments HCN Same Day Appt/Overbook Request 09/12/2024 Encounter Details Date Type Department Care Team (Late st Contact Info) Description 09/12/2024 Telephone [facility] General Surgery [address], [address] [place] [address] Lidia Troncoso MD [address] [place] [address] HCN Same Day Appt/Overbook Request Social History Tobacco Use Types Packs/Day Years [...] the past 12 months has th e [employer], gas, oil, or water company threatened to [...] encounter Miscellaneous Notes * Telephone Encounter - Aleshia Connolly - 09/17/2024 3:07 PM EDT Status Update Call #1 1st call regarding the status of the initial request. Best contact number: [phone] (home) Optimal time of day to reach caller: ANYTIME Additional comments/information from caller: None Pt requesting a return call regarding still having a lot of swelling and pain. Pt states today is the most painful since swelling started. Pt asking if she should go to PCP, just requesting recommendations please. Note: Please do not reply to this message. Follow-up communication and further actions as a result of this message need to be communicated with the patient directly, if the patient is not active onMyChart. If the patient is active on MyChart, they will receive notification of the communication/outcome via [employer]. * Telephone Encounter - Rina Mason RN - 09/13/2024 10:25 AM EDT Called patient. No answer. Left detailed message with direct contact name and number. * Telephone Encounter - Cydney Rogers - 09/12/2024 12:23 PM EDT Same Day/Overbook Request: Reason for Call: Pt is swelling around stoma and in a lot of pain. She asked if she can get in araceli. Thanks! Best contact number: [phone] (home) Optimal time of day to reach caller: ANYTIME Additional comments/information from caller: None Note: Please do not reply to this message. Follow-up communication and further actions as a result of this message need to be communicated with the patient directly, if the patient is not active onMyChart. If the patient is active on MyChart, they will receive notification of the communication/outcome via MyChart. documented in this encounter Plan of Treatment Upcoming Encounters Date Type Department Care Team (Late st Contact Info) Description 10/30/2024 10:45 AM EDT Office Visit [facility] General Surgery [address], [address] [place] [address] Lidia Troncoso MD [address] [place] [address] documented as of this encounter [...] documented as of this encounter Care Teams Software Configuration Engineer Relationship Specialty Start Date End Date Champ Quiroz MD [address] [place] [address] PCP - General Internal Medicine 06/29/24 documented as of this encounter
--- OUTSIDE RECORDS SUMMARY | 2024-09-17 16:50 | XMS_ITS | Encounter Summary ---
Author Organization [facility] Address [address] [place] [address] Care Team Providers Care Warp Dresser Name Role Phone Champ Quiroz MD Primary Care Provider + [phone] Encounter Details Date Type Department Care Team [...] any time in the past 12 m [facility], were you homeless or [...] the past 12 months has th e [employer], gas, oil, or water company threatened to [...] Description 10/30/2024 10:45 AM EDT Office Visit [facility] General Surgery [address] [place] [address] Lidia Troncoso MD [address] [place] [address] documented as of this encounter Goals Goal [...] documented as of this encounter Care Teams Warp Dresser Relationship Specialty Start Date End Date Champ Quiroz MD [address] [place] [address] PCP - General Internal Medicine 06/29/24 documented as of this encounter
--- OUTSIDE RECORDS SUMMARY | 2024-09-17 16:50 | XMS_ITS | Encounter Summary ---
Author Organization Healthcare Address [address] [id number] Care Team Providers Care Log Sorting Supervisor Name Role Phone Champ Quiroz MD Primary Care Provider + [phone] Reason for Visit * Reason Onset Date Comments Med Refill 08/15/2024 Encounter Details Date Type Department Care Team (Late st Contact Info) Description 08/15/2024 Refill [facility] [address], [address] [place] [address] Ana Luisa Simenatl RN [id number] [address] [id number] Social History Tobacco Use Types Packs/Day Years [...] the past 12 months has th e [employer], gas, oil, or water company threatened to [...] Description 10/30/2024 10:45 AM EDT Office Visit [facility] General Surgery [address], [address] [place] [address] Lidia Troncoso MD [address] [place] [address] documented as of this encounter [...] documented as of this encounter Care Teams Log Sorting Supervisor Relationship Specialty Start Date End Date Champ Quiroz MD [address] [place] [address] PCP - General Internal Medicine 06/29/24 documented as of this encounter
--- OUTSIDE RECORDS SUMMARY | 2024-09-17 16:50 | XMS_ITS | Encounter Summary ---
Author Organization Healthcare Address [address] [place] [address] Care Team Providers Care Acute Care Physical Therapist Name Role Phone Champ Quiroz MD Primary Care Provider [phone] Encounter Details Date Type Department Care Team (Late st Contact Info) Description 08/07/2024 Orders Only External Location [address] [place] [address] Provider, External Social History Tobacco Use Types [...] time in the past 12 m [facility], were you homeless or [...] 10:45 AM EDT Office Visit [facility] General Surgery [address] [place] [address] Lidia Troncoso MD [address] [place] [address] documented as of this encounter [...] documented as of this encounter Care Teams Acute Care Physical Therapist Relationship Specialty Start Date End Date Champ Quiroz MD [address] [place] [address] PCP - General Internal Medicine 06/29/24 documented as of this encounter
--- OUTSIDE RECORDS SUMMARY | 2024-09-17 16:50 | XMS_ITS | Encounter Summary ---
Author Organization Healthcare Address [address] [place] [address] Care Team Providers Care Benefit Specialist Name Role Phone Pcp, No Primary Care Provider Champ Butler MD Primary Care Provider + [phone] Encounter Details Date Type Department Care Team (Late st Contact Info) Description 05/29/2024 Results Follow-Up Colorectal Surgery [address] [place] [address] Lidia Troncoso MD [address] [place] [address] Social History Tobacco Use Types Packs/Day Years [...] In the past 12 months has e [employer], [employer], oil, or water [employer] threatened to shut off services in your [...] at all 06/29/2024 2:40 PM EDT O'Hair, Amrva S Moving or speaking so slowly that [...] Description 10/30/2024 10:45 AM EDT Office Visit [facility] General Surgery [address] [place] [address] Lidia Troncoso MD [address] [place] [address] documented as of this encounter [...] documented as of this encounter Care Teams Benefit Specialist Relationship Specialty Start Date End Date Pcp, No [address] [place] [address] PCP - General Family Medicine 04/04/24 06/28/24 Champ Quiroz MD [address] [place] [address] PCP - General Internal Medicine 06/29/24 documented as of this encounter
--- OUTSIDE RECORDS SUMMARY | 2024-09-17 16:50 | XMS_ITS | Encounter Summary ---
Author Organization Healthcare Address [address] [place] [address] Care Team Providers Care Drawing Hand Name Role Phone Champ Quiroz MD Primary Care Provider + [phone] Reason for Visit * Reason Onset Date Comments HCN - Patient Message 08/20/2024 Reschedule due to transportation Encounter Details Date Type Department Care Team (Late st Contact Info) Description 08/20/[address] [facility] General Surgery [address], [address] [place] [address] Lidia Troncoso MD [address] [place] [address] HCN - Patient Message (Reschedule [...] time in the past [address] [facility], were you homeless or living [...] the past 12 months has th e [employer], gas, oil, or water company threatened to [...] Call: Pt requesting a return call to [facility] 08/20 appt. Pt states she only has transportation tomorrow 08/21 or Thursday 08/24 Best contact number and optimal time of day to reach caller: [phone] Note: Please do not reply to this message. Follow-up communication and further actions as a result of this message need to be communicated with the patient directly, if the patient is not active onMyChart. If the patient is active on MyChart, they will receive notification of the communication/outcome via [employer]. documented in this encounter Plan of Treatment Upcoming Encounters Date Type Department Care Team (Late st Contact Info) Description 10/30/2024 10:45 AM EDT Office Visit [facility] General Surgery [address] [place] [address] Lidia Troncoso MD [address] [place] [address] documented as of this encounter Goals Goal [...] documented as of this encounter Care Teams Drawing Hand Relationship Specialty Start Date End Date Champ Quiroz MD [address] [place] [address] PCP - General Internal Medicine 06/29/24 documented as of this encounter
--- OUTSIDE RECORDS SUMMARY | 2024-09-17 16:50 | XMS_ITS | Encounter Summary ---
Author Organization Healthcare Address [address] [place] [address] Care Team Providers Care Health Plan Manager Name Role Phone Champ Quiroz MD Primary Care Provider [phone] Encounter Details Date Type Department Care Team (Late st Contact Info) Description 07/21/2024 Orders Only External Location [address] [place] [address] Sundeep Fisher MD [address] [place] [address] Social History Tobacco Use Types Packs/Day [...] the past 12 months has th e [employer], gas, oil, or water [employer] threatened to shut off services in your [...] Visit [facility] General Surgery [address], [address] [place] [address] Lidia Troncoso MD [address] [place] [address] documented as of this encounter Goals Goal [...] documented as of this encounter Care Teams Health Plan Manager Relationship Specialty Start Date End Date Champ Quiroz MD [address] [place] [address] PCP - General Internal Medicine 06/29/24 documented as of this encounter
--- NOTE | 2024-09-17 16:52 | ECG_ITS ---
APPROVED REPORT Exam: Resting ECG HR:112 bpm ECG Measurements Heart Rate 112 AXES WA 132 P 75 QRSd 102 QRS 84 QT 373 T 79 QTc 439 Conclusion SINUS TACHYCARDIA POSSIBLE LEFT ATRIAL ENLARGEMENT [-0.1mV P-WAVE IN V1/V2] INCOMPLETE RIGHT BUNDLE BRANCH BLOCK [90+ ms QRS DURATION, TERMINAL R IN V1/V2, 40+ ms S IN I/aVL/V4/V5/V6] MODERATE ST DEPRESSION [0.05+ mV ST DEPRESSION] ABNORMAL ECG UNCONFIRMED REPORT Electronically signed by : Gregg Fisher, 09/17/2024 23:22:15
--- NOTE | 2024-09-17 16:52 | XR_ITS ---
PROCEDURE INFORMATION: Exam: XR Chest Exam date and time: 09/17/2024 5:42 PM Age: 53 years old Clinical indication: Other: Dyspnea TECHNIQUE: Imaging protocol: Radiologic exam of the chest. Views: 1 view. COMPARISON: CT ABDOMEN PELVIS W CON 08/09/2024 7:35 PM FINDINGS: Lungs: There are moderate centrilobular emphysematous changes of the lungs with an apical gradient. No consolidations. Pleural spaces: Unremarkable. No pleural effusion. No pneumothorax. Heart/Mediastinum: Postsurgical changes compatible with CABG procedure. Bones/joints: Unremarkable. IMPRESSION: No acute findings.
--- NOTE | 2024-09-17 16:52 | CT_ITS ---
PROCEDURE INFORMATION: Exam: CTA Abdomen and Pelvis With Contrast Exam date and time: 09/17/2024 6:09 PM Age: 53 years old Clinical indication: Abdominal pain; Generalized TECHNIQUE: Imaging protocol: Computed tomographic angiography of the abdomen and pelvis with contrast. Exam focused on the arteries. 3D rendering (Not supervised by radiologist): MIP and/or 3D reconstructed images were created by the technologist. Radiation optimization: All CT scans at this facility use at least one of these dose optimization techniques: automated exposure control; mA and/or kV adjustment per patient size (includes targeted exams where dose is matched to clinical indication); or iterative reconstruction. Contrast material: ISOVUE; Contrast volume: 75 ml; Contrast route: INTRAVENOUS (IV); COMPARISON: CT ANGIO ABDOMEN PELVIS 07/21/2024 7:18 PM FINDINGS: Aorta: Moderate mixed calcific and noncalcified atherosclerotic disease of the abdominal aorta. Celiac trunk and mesenteric arteries: Moderate mixed calcific and noncalcified atherosclerotic disease of the origin of the SMA resulting in moderate stenosis. Renal arteries: No occlusion or significant stenosis. Right iliac arteries: No occlusion or significant stenosis. Left iliac arteries: No occlusion or significant stenosis. Liver: There is diffuse hypoattenuation of the liver compatible with moderate hepatic steatosis. Gallbladder and biliary ducts: There are surgical clips within the gallbladder fossa. Pancreas: Unremarkable. No mass. No ductal dilation. Spleen: Unremarkable. No splenomegaly. Adrenal glands: Unremarkable. No mass. Kidneys and ureters: Unremarkable. No solid mass. No hydronephrosis. Stomach and bowel: Luis pouch with chain suture closure. Right-sided colostomy. Moderate to severe inflammatory changes of the distal ileum with hyperemia and enhancement of the ileum mucosa suggesting inflammatory bowel disease flare in the appropriate clinical setting, worse from comparison exam. Appendix: No evidence of appendicitis. Intraperitoneal space: Unremarkable. No free air. No significant fluid collection. Lymph nodes: Unremarkable. No enlarged lymph nodes. Urinary bladder: Moderate thickening of the bladder dome likely representing reactive cystitis. Reproductive: The uterus appears surgically absent. Bones/joints: Moderate loss of intervertebral disc space with degenerative changes involving L4 through S1. Soft tissues: Unremarkable. IMPRESSION: 1. Moderate to severe inflammatory changes of the distal ileum with hyperemia and enhancement of the ileum mucosa suggesting inflammatory bowel disease flare in the appropriate clinical setting, worse from comparison exam. 2. Moderate thickening of the bladder dome likely representing reactive cystitis.
--- NOTE | 2024-09-17 16:57 | HMH.EDGENADL ---
Discharge Plan Disposition Patient Disposition: Xfer Other Prescriptions Prescriptions: No Action benzonatate 200 mg capsule PO Allergy Relief (loratadine) 10 mg capsule 10 mg PO DAILY fluticasone propionate [Flonase Allergy Relief] 50 mcg/actuation spray,suspension 1 spray intranasal DAILY Qty: 16 2RF Rx Instructions: administer into each nostril metoprolol tartrate 25 mg tablet 12.5 mg PO BID Qty: 30 5RF trazodone 50 mg Tablet 50 mg PO HSP PRN (Reason: Insomnia) ondansetron 4 mg tablet,disintegrating 4 mg PO Q8H PRN (Reason: nausea and vomiting) 4 Days Qty: 12 0RF metronidazole 500 mg tablet 500 mg PO Q8H 14 Days Qty: 42 0RF primidone 50 mg tablet 50 mg PO BID Patient Comments: TAKE 1 TABLET BY MOUTH TWICE DAILY FOR 90 DAYS citalopram 40 mg tablet 40 mg PO DAILY hydroxyzine HCl 10 mg tablet 10 mg PO Q8HP PRN (Reason: Anxiety) Patient Comments: TAKE 1 TABLET BY MOUTH EVERY 8 HOURS NEEDED FOR 15 DAYS bupropion HCl 300 mg tablet extended release 24 hr 300 mg PO DAILY Patient Comments: TAKE 1 TABLET BY MOUTH EVERY 24 HOURS aspirin 81 mg tablet,chewable 81 mg PO DAILY rosuvastatin 40 mg tablet 40 mg PO HS Referrals Follow up/Referrals: Champ Quiroz MD [Primary Care Provider, Internal Medicine] - See instructions Clinical Impressions Clinical Impression: Ileitis, Abdominal pain, Chest pain Instructions Patient Instructions: DI for Acute Abdominal Pain Print Language Print Language: Cameroonian Discharge ED Provider: Jaime Fisher General Adult HPI General Chief complaint: Abdominal Pain Stated complaint: Stoma swollen,painful,sent by Dr Quiroz Time Seen by Provider: 09/17/24 16:45 History of Present Illness HPI narrative: Patient is a 53-year-old female whom I have seen multiple times for similar complaints presents today with abdominal pain. She has a complicated history where she had an [place] and during surgical intervention had what she describes as a bowel possibly a perforated bowel or mesenteric ischemia that required colectomy and ostomy. Since that time she has been to our emergency department numerous times have been diagnosed with pouchitis and ileitis as well as C. difficile. She has completed multiple courses of antibiotics and has followed up with Dr. Troncoso multiple times and the patient states that no one is listening to me. She presents to the emergency department today stating that she is having pain around her stoma from her ostomy she called Dr. Dubose who told her to come to the emergency department. Patient also states while waiting in the waiting room she started having chest pain. Patient is crying hysterically and history is limited secondary to that. Related Data Home Medications ?Medication ?Instructions ?Recorded ?Confirmed citalopram 40 mg tablet 40 mg PO DAILY 12/23/23 09/04/24 primidone 50 mg tablet 50 mg PO BID 12/23/23 09/04/24 bupropion HCl 300 mg 24 hr tablet, 300 mg PO DAILY 05/01/24 09/04/24 extended release hydroxyzine HCl 10 mg tablet 10 mg PO Q8HP PRN Anxiety 05/01/24 09/04/24 aspirin 81 mg chewable tablet 81 mg PO DAILY 07/21/24 09/04/24 rosuvastatin 40 mg tablet 40 mg PO HS 07/21/24 09/04/24 trazodone 50 mg tablet 50 mg PO HSP PRN Insomnia 08/07/24 09/04/24 benzonatate 200 mg capsule mg PO 09/04/24 09/04/24 loratadine 10 mg capsule (Allergy 10 mg PO DAILY 09/04/24 09/04/24 Relief (loratadine)) Previous Rx's ?Medication ?Instructions ?Recorded ondansetron 4 mg disintegrating 4 mg PO Q8H PRN nausea and 08/09/24 tablet vomiting 4 days #12 tabs metronidazole 500 mg tablet 500 mg PO Q8H 14 days #42 tabs 08/21/24 fluticasone propionate 50 1 spray intranasal DAILY #16 grams 09/04/24 mcg/actuation nasal spray,suspension (Flonase Allergy Relief) metoprolol tartrate 25 mg tablet 12.5 mg (1/2 x 25 mg) PO BID #30 09/04/24 tabs Allergies Allergy/AdvReac Type Severity Reaction Status Date / Time oxycodone (From Percocet) AdvReac Vomiting Verified 09/04/24 14:25 PFSH [facility] Disclaimer: The information contained in this section may have been updated after the patient was seen, as this information can be updated by other users. Medical History (Updated 09/17/24 @ 19:25 by Jaime Fisher MD) Cough Colostomy in place Heart attack Depression Anxiety History of pleurisy Hemorrhoid Essential tremor Endometriosis Surgical History History of hand surgery History of Hx of cholecystectomy H/O rotator cuff surgery History of hysterectomy Family History Other Essential tremor Family history of heart disease Social History Smoking Status: Never smoker alcohol intake: never substance use type: denies use current occupational status: unemployed and retired Travel in the last 8 weeks?: Inside the [place] household members: family housing: house caffeine: Yes Have you lived/traveled outside [place] in past 30 days?: No Contact w/someone who lives/traveled outside US past 30 days?: No Exposure to someone with infectious disease in past 14 days?: No Do you have a fever (greater than 100.4 F or 38 C)?: No Have you tested positive for COVID-19?: No Exposed to someone with COVID-19 in past 14 days?: No Do you have a sore throat?: No Do you have a cough?: No Do you have any weakness?: No Do you have any diarrhea?: No Are you experiencing any unusual bleeding?: No Do you have any muscle aches/pain?: No Do you have any abdominal pain?: No Are you experiencing loss of taste or smell?: No Other Medical History Have you received the Flu Vaccine for this season: No Have you received the Pneumonia Vaccine: No ROS Obtained: Yes All systems reviewed & no additional complaints except as documented Physical Exam General General appearance: anxious (Crying hysterically) Respiratory Respiratory exam: Present normal lung sounds bilaterally Cardiovascular Cardiovascular exam: Present regular rate Abdominal Exam Abdominal exam: Present tenderness (There is right sided abdominal wall tenderness no rebound or guarding stoma dressing was taken down there is no significant contact dermatitis the mucosa that I see is normal pink no pathologic erythema or swelling) Neurological Exam Neurological exam: Present alert and oriented X3 Medical Decision Making Medical Records Screening: Per USPSTF and CDC recommendations, given the prevalence of disease in our region, it is our hospital?s policy to screen for HIV and viral Hepatitis for all patients aged 18 and over and those with ongoing risk factors. Supa Inquiry Pt receiving controlled substance: No Vital Signs: 09/17/24 17:13 Temperature 98.9 F Temperature Source Oral Pulse Rate [Left Brachial] 116 H Respiratory Rate 22 Blood Pressure [Left Arm] 147/87 H Blood Pressure Mean [Left Arm] 107 02 Sat by Pulse Oximetry 99 Oxygen Delivery Method Room Air Lab Data Lab results reviewed: Yes I reviewed the patient's lab results. Lab Results 09/17/24 17:08: WBC 20.7 H*, RBC 4.60, Hgb 13.1, Hct 40.0, MCV 87.0, MCH 28.5, MCHC 32.8, RDW 14.9, Plt Count 642 H, MPV 9.0, Neut % (Auto) 63.7, Lymph % (Auto) 24.3, [place] % (Auto) 9.3, Eos % (Auto) 1.5, Baso % (Auto) 0.8, Neut # (Auto) 13.2 H, Lymph # (Auto) 5.1 H, [place] # (Auto) 1.9 H, Eos # (Auto) 0.3, Baso # (Auto) 0.2, Total Counted 100, Neutrophils % (Manual) 68, Lymphocytes % (Manual) 26, Monocytes % (Manual) 6, Platelet Estimate Marked increase, RBC Morphology Normal, PT 11.3, INR 1.02, APTT 25.3, Sodium 139, Potassium 4.1, Chloride 103, Carbon Dioxide 28, Anion Gap 12.1, BUN 7, Creatinine 0.70, Estimated Creat Clear 74, Estimated GFR 87, Est GFR ( Amer) 106, Glucose 103 H, Calcium 9.7, Total Bilirubin < 0.1 L, AST 38 H, ALT 30, Alkaline Phosphatase 142 H, Troponin I < 0.01, Total Protein 6.9, Albumin 3.9, Globulin 3.0, Albumin/Globulin Ratio 1.3, Lipase 70 09/17/24 18:48: Urine Color Yellow, Urine Appearance Clear, Urine pH 6.0, Ur Specific [place] 1.010, Urine Protein Negative, Urine Glucose (UA) Negative, Urine Ketones Negative, Urine Blood Negative, Urine Nitrate Negative, Urine Bilirubin Negative, Urine Urobilinogen 0.2, Ur Leukocyte Esterase Negative 09/17/24 18:58: VBG Lactic Acid 1.8 09/17/24 17:08 09/17/24 17:08 Orders (Tests/Meds): ED MEDICATIONS Generic Name Dose Route Start Last Admin Trade Name Freq PRN Reason Stop Dose Admin Piperacillin Sod/Tazobactam 50 mls @ 100 mls/hr 09/17/24 20:15 Sod 3.375 gm/ Sodium Chloride IV 09/27/24 20:14 Q6H LINDA Sodium Chloride 10 ml 09/17/24 18:08 09/17/24 18:08 Sodium Chloride 0.9% 10ml Syr (Rad Only) IV 10/17/24 18:07 10 ml NEEDED PRN Administration Maintain IV Site Discontinued Medications Generic Name Dose Route Start Last Admin Trade Name Freq PRN Reason Stop Dose Admin Diazepam 2 mg 09/17/24 19:23 09/17/24 19:41 Diazepam 10mg/2ml Syringe IV 09/17/24 19:24 2 mg ONCE ONE Administration Lactated Ringer's 1,000 mls @ 999 mls/hr 09/17/24 17:00 09/17/24 17:25 Lactated Ringer's 1000 Ml Bag IV 09/17/24 18:00 999 mls/hr .Q1H1M LINDA Administration Piperacillin Sod/Tazobactam 100 mls @ 200 mls/hr 09/17/24 19:30 Sod 4.5 gm/ Sodium Chloride IV 09/17/24 19:59 ONCE ONE Iopamidol 75 ml 09/17/24 18:08 09/17/24 18:08 Iopamidol-370 (76%);100ml Bottle IV 09/17/24 18:09 75 ml ONCE ONE Administration Morphine Sulfate 4 mg 09/17/24 16:52 09/17/24 17:25 Morphine 4mg/Ml Syringe IV 09/17/24 16:53 4 mg ONCE ONE Administration Morphine Sulfate 4 mg 09/17/24 19:18 09/17/24 19:20 Morphine 4mg/Ml Syringe IV 09/17/24 19:19 4 mg ONCE ONE Administration Ondansetron HCl 4 mg 09/17/24 16:52 09/17/24 17:25 Ondansetron 4mg/2ml Vial IV 09/17/24 16:53 4 mg ONCE ONE Administration Sodium Chloride 50 ml 09/17/24 18:08 09/17/24 18:08 0.9 % Sodium Chloride 50 Ml Vial IV 09/17/24 18:09 50 ml ONCE ONE Administration ORDERS Category Date Time Status CT angio abdomen pelvis Stat Cat Scan 09/17/24 16:52 Completed CXR --portable [XR chest portable] Stat Exams 09/17/24 16:52 Completed CBC w/Auto Diff [Complete Blood Count Auto Diff] Stat Lab 09/17/24 17:08 Completed CMP [Comprehensive Metabolic Panel] Stat Lab 09/17/24 17:08 Completed Lactate Venous Stat Lab 09/17/24 18:58 Completed Lipase Stat Lab 09/17/24 17:08 Completed PT/PTT Stat Lab 09/17/24 17:08 Completed Trop I [Troponin I] Stat Lab 09/17/24 17:08 Completed Troponin I Q3H Lab 09/17/24 20:00 Ordered Troponin I Q3H Lab 09/17/24 23:00 Ordered UA [Urinalysis and Microscopic] Stat Lab 09/17/24 18:48 Results Blood Culture Stat Micro 09/17/24 19:52 Ordered Medical Decision Narrative: Patient presents with above history and physical. Differential includes ongoing ileitis or pouchitis or bowel obstruction as she has complicated surgical history in her abdomen. She has been her multiple times for similar complaints has completed multiple courses of antibiotics. She states that her stool is no longer loose will not work her up for recurrent C. difficile at this point. Will get a contrasted CT scan specifically a CT angio as it sounds as if she may have had mesenteric ischemia that initially presented with this. Also will get a chest x-ray and troponins given the fact that she is having chest discomfort but I believe that her chest discomfort is simply referred to the from the abdominal pain that she is complaining about. From my multiple interactions with this patient she does look significantly worse from a overall health standpoint than when I first interacted with her. We have interacted with the surgical team at multiple times with her presentations but no further interventions have been done by their team but likely will require more interactive discussions with them this evening. Reassessment [id number] patient still in severe pain incremental pain medicine and anxiety medicine have been ordered. CT scan was performed which I personally interpreted shows significant worsening of her ileitis. Will discuss the case with Dr. Troncoso's team [facility]. Patient states that she has been trying to call Dr. Troncoso's team multiple times recently and has not heard back. Reassessment [id number] patient remains in severe pain discussed the case with Dr. Pollock on-call for Dr. Troncoso's team. He states that they recently discussed her case and that she needs to be managed by [facility] not by their team therefore we will discuss the case with [facility]. I ended up speaking with Dr. Ace with [facility] who wanted the patient [facility] but we all agree this patient is not a surgical emergency and they are on divert therefore she was initially listed and I called her hospital medicine team who agreed to admit the patient. A few minutes later they called back and stated they had a bed. Therefore she will be transferred directly to emergency [facility]. Patient is agreeable to this plan. Zosyn was initiated in the emergency department. Patient continued to be in severe pain requiring multiple doses of opiates. Critical Care Critical Care Time Critical Care Time: Yes Attestation: On 09/17/24, the high probability of a clinically significant, sudden or life threatening deterioration of the following system(s) required my full and direct attention, intervention and personal management. The time I documented below is in addition to time spent performing reported procedures but includes the following listed in this critical care notation. Total Time Total Critical Care Time: 35
[2024-09-17 17:19] LABS: Hematocrit 40.0 % (37.0-47.0); Hemoglobin 13.1 g/dL (12.2-16.2); Immature Granulocytes % 0.4 %; Mean Corpuscular HGB Conc 32.8 g/dL (31.8-35.4); Mean Corpuscular Hemoglobin 28.5 pg (27.0-31.2); Mean Corpuscular Volume 87.0 fl (81-99); Nucleated Red Blood Cells % 0 %; Platelet Count 642 K/mm3 (142-424); Red Blood Count 4.60 M/mm3 (4.20-5.40); Red Cell Distribution Width-SD 47.7 fL; White Blood Count 20.7 K/mm3 (4.8-10.8)
[2024-09-17] MEDS: MORPHINE 4MG/ML SYRINGE 4 MG IV ×3 (17:25→21:31)
[2024-09-17] MEDS: LACTATED RINGERS 1000ML 1,000 ML 999 ML IV (17:25)
[2024-09-17] MEDS: ONDANSETRON 4MG/2ML VIAL 4 MG IV (17:25)
[2024-09-17 17:43] LABS: Lipase 70 U/L (23-300)
[2024-09-17 17:45] LABS: Alanine Aminotransferase 30 U/L (12-78); Albumin Level 3.9 g/dl (3.5-5.0); Albumin/Globulin Ratio 1.3 (1.1-1.8); Alkaline Phosphatase 142 U/L (38-126); Anion Gap 12.1 mEq/L (5-15); Aspartate Amino Transferase 38 U/L (14-36); Blood Urea Nitrogen 7 mg/dl (7-17); Calcium 9.7 mg/dl (8.4-10.2); Carbon Dioxide 28 mmol/L (22.0-30.0); Chloride 103 mmol/L (98-107); Creatinine Clearance Estimated 74 mL/min (50-200); Creatinine,Serum 0.70 mg/dl (0.52-1.04); Estimated Glomerular Filt Rate 87 ml/min (>60); GFR (African American) 106 ML/MIN (>60); Globulin 3.0 g/dL (1.3-3.2); Glucose 103 mg/dl (74-100); Potassium 4.1 mmoL/L (3.5-5.1); Sodium 139 mmol/L (136-145); Total Protein,Serum 6.9 g/dl (6.3-8.2)
[2024-09-17 17:49] LABS: Bilirubin,Total < 0.1 mg/dl (0.2-1.3)
[2024-09-17 17:53] LABS: Activated Partial Thrombo Time 25.3 seconds (22.8-30.6); INR 1.02 (0.9-1.1); Prothrombin Time 11.3 seconds (10.1-12.5)
[2024-09-17] MEDS: SODIUM CHLORIDE 0.9% 10ML SYR (RAD ONLY) 10 ML IV (18:08)
[2024-09-17] MEDS: IOPAMIDOL-370 (76%);100ML BOTTLE 75 ML IV (18:08)
[2024-09-17] MEDS: 0.9 % SODIUM CHLORIDE 50 ML VIAL IV (18:08)
[2024-09-17 18:14] LABS: Troponin I < 0.01 ng/ml (0.00-0.034)
[2024-09-17 18:24] LABS: Total Cells Counted 100
[2024-09-17 18:25] LABS: RBC Morphology Normal
[2024-09-17 19:04] LABS: Microscopic, Urine URINE MICROSCOPIC (MICROSCOPIC)
[2024-09-17 19:07] LABS: Bilirubin,Urine Negative (Negative); Color,Urine YELLOW (Yellow); Glucose,Urine (UA) Negative (Negative); Ketones,Urine Negative (Negative); Leukocyte Esterase,Urine Negative (Negative); PH,Urine 6.0 (5.0-8.5); Protein,Urine Negative (Negative); Specific Gravity, Urine 1.010 (1.005-1.030); Urobilinogen,Urine 0.2 EU/dl (0.2)
--- NOTE | 2024-09-17 19:29 | PC.NURSE ---
Called [id number] for a potential transfer
[2024-09-17 19:35] LABS: Lactate Venous 1.8 mmol/L (0.4-2.0)
[2024-09-17] MEDS: diazePAM 10MG/2ML SYRINGE 2 MG IV (19:41)
--- NOTE | 2024-09-17 19:47 | PC.NURSE ---
rounded on pt. Pt voices no needs. Stanley KAUFFMAN at bedside administering medications
--- NOTE | 2024-09-17 20:01 | PC.NURSE ---
MD Fisher spoke with [facility] about pt and states [facility] is on divert and is being placed on a waiting list. Is now speaking with Hospitalist here at [facility].
[2024-09-17 20:26] LABS: Mucus,Urine 1+ /lpf; WBC,Urine Occasional #/hpf (0-3)
[2024-09-17 20:27] LABS: Bacteria,Urine Trace /lpf
--- NOTE | 2024-09-17 20:32 | PC.NURSE ---
blood cultures obtained and sent to lab by Bessy PABLO. Able to start abx at this time.
[2024-09-17] MEDS: PIPERACILLIN/TAZO 4.5 GM in 0.9 % SODIUM CHLORIDE 100 ML IV (20:35)
== END 2024-09-17 21:42 | disposition other institution (70) ==
PROVIDERS: Emergency Provider Student in an Organized Health Care Education/Training Program; PCP Internal Medicine Adolescent Medicine
DX: R07.9 Chest pain, unspecified (principal); K52.9 Noninfective gastroenteritis and colitis, unspecified; R10.9 Unspecified abdominal pain; I25.10 Atherosclerotic heart disease of native coronary artery without angina pectoris; F41.9 Anxiety disorder, unspecified
CPT/HCPCS: 71045; 74174; 80053; 81001; 83605; 83690; 84484; 85007; 85025; 85027; 85610; 85730; 87040; 93005; 96361; 96365; 96366; 96375; 96376; 99291; J2270; J2405; J2543; J3360; J7120; Q9967

== ENCOUNTER 2024-10-11 15:33 | Outpatient (CLI) | payer MEDICAID, SELFPAY ==
--- OUTSIDE RECORDS SUMMARY | 2024-08-20 11:15 | XMS_ITS ---
Author Organization [facility] Address [address] [place] [address] Care Team Providers Care Driver Engineer Name Role Phone Michaelle Rivas Primary Care Provider [phone] Champ Quiroz Unavailable [phone] Allergies Allergen (clinical drug ingredient) Drug/Non Drug [...] 08/20/2024 Encounters Encounter Location Date Provider Diagnosis formerly [facility] [place] [address] [facility] [address] [place], [place] [address] 08/20/2024 Champ Quiroz Atherosclerosis of [place] coronary artery of [place] heart without angina pectoris I25.10 ; Colostomy status Z93.3 and Hospital discharge follow-up Z09 Assessments Encounter Date Diagnosis (ICD Code) Assessment Notes Treatment Notes Treatment Clinical Notes Section Notes 08/20/2024 Atherosclerosis of [place] coronary artery of [place] heart without angina pectoris (ICD-10 - I25.10) [...] Treatment Treatment Notes Assessment Notes Atherosclerosis of [place] co ronalison artery of [place] heart without angina pectoris Overall doing fairly well. No changes in plan. Stable from a vascular standpoint. Colostomy status Infection resolved, following up with GI/GI surgery Hospital discharge follow-up Personally reviewed H&P and discharge summary as available from hospital discharge documentation. Reviewed pertinent labs and test done in the hospital. Personally reconciled medication. Next Appt Details Follow Up: prn, Reason: Provider Name:Champ Quiroz, 10/31/2024 03:15:00 PM, [address], [address], [place], [address], Progress Notes * Miguel Ángel REESEie ADOB: [birth year] (53 yo F)Acc No.[id number]:08/20/2024 HOSP F/U Patient: Rere DICKSON Provider: Dayana Quiroz MD :1970 A ge:53 Y S ex:Female Date:08/20/2024 Address:[address] [place] [address] [id number] Pcp:Michaelle Rivas Subjective: * [...] post CABG May [address] [facility], Sepsis, bowel ischemia and colostomy April/[address] [facility]. * Surgical History: l t rotator cuff 2020, rt hand surgery 01/2023, colon resection 04/30/24. * Hospitalization/Major Diagno stic Procedure: H [facility] 01/2022, [facility]- heart [facility] 04/30/2024-06/28/24, Septic 07/24/2024, [facility]- abd pain 07/2024. * Family History: [...] Assessment: * Assessment: 1. A therosclerosis of [place] coronary artery of [place] heart without angina pectoris - I25.10 (Primary) [...] 08/20/2024 Generated for Printi ng/Fior/eTransmitting on: 0 10/11/2024 03:37 PM EDT History and Physical Notes * [...]
--- OUTSIDE RECORDS SUMMARY | 2024-08-21 10:00 | XMS_ITS | Encounter Summary ---
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) Right lower quadrant abdominal pain Procedures CT Abdomen Pelvis w IV & PO Contrast Lidia Troncoso MD [address] [address] Phone: tel: fax: Referral ID Status Reason Start Date Expiration Date Visits Re quested Visits Authorized [id number] Closed 08/21/2024 02/20/2026 1 1 Reason for Visit * Reason Comments Follow-up Encounter Details Date Type Department Care Team (Late st Contact Info) Description 08/21/2024 10:00 AM EDT Office Visit [facility] [address], 1st [place] [address] Lidia Troncoso MD [id number] [place] 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) (Primary Dx); Right [...] the past 12 months has th e [employer], gas, oil, or water company threatened to [...] Doan MD - 08/21/2024 10:00 AM EDT [facility] Colon & Rectal Surgery 08/21/2024 Chief [...] after recent ER visit and hospitalization at [facility]. She developed acute on chronic abdominal pain in the lower abdomen, worse with sitting/standing, for which she sought care. CTA 07/21/24 demonstrated pronounced let-ox-qktcci long segment of active ileitis and Luis's [...] was about one year ago, done in [place], reportedly normal. ROS: A complete 14 point review of systems was done with the patient. These are all negative with the exception of what is noted in the HPI. Past Medical History: has a past medical history of Anxiety, COPD (chronic obstructive pulmonary disease) ([facility]) (05/01/2024), Depression, GERD (gastroesophageal reflux disease) (05/01/2024), Hyperkalemia (05/06/2024),On mechanically assisted ventilation ([facility]) (05/06/2024), Tobacco use (05/01/2024), and Tremor (0 [...] Care Team (Late st Contact Info) Description 11/06/2024 11:00 AM EDT Office Visit [facility] General Surgery [address], 1[address] [place] [address] Lidia Troncoso MD [address] [place] [address] documented as of this encounter [...] documented as of this encounter Care Teams Barrel Endshake Adjuster Relationship Specialty Start Date End Date Champ Quiroz MD [address] [place] [address] PCP - General Internal Medicine 06/29/24 documented as of this encounter
--- OUTSIDE RECORDS SUMMARY | 2024-08-21 12:18 | XMS_ITS | Encounter Summary ---
Author Organization Healthcare Address [address] 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) Right lower quadrant abdominal pain Procedures CT Abdomen Pelvis w IV & PO Contrast Lidia Troncoso MD [address] [address] Phone: tel: fax: Referral ID Status Reason Start Date Expiration Date Visits Re quested Visits Authorized [id number] Closed 08/21/2024 02/20/2026 1 1 Reason for Visit * Imaging (Urgent) - Closed Specialty Diagnoses / Procedures Referred By Contac t Referred To Contact Radiology Diagnoses 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) Right lower quadrant abdominal pain Procedures CT Abdomen Pelvis w IV & PO Contrast Lidia Troncoso MD [address] [address] Phone: tel: fax: Referral ID Status Reason Start Date Expiration Date Visits Re quested Visits Authorized [id number] Closed 08/21/2024 02/20/2026 1 1 Encounter Details Date Type Department Care Team (Latest Contact Info) Description 08/21/2024 12:18 PM EDT - 08/21/2024 11:59 PM EDT Hospital Encounter [facility] [address] [place] [address] [address] ([facility]); Right lower quadrant abdominal pain Discharge Disposition: Home or Self Care Social [...] In the past 12 months has th [employer], [employer], oil, or water [employer] threatened to shut off services in your home? Yes 05/02/2024 PHQ-2A Answer Date Recorded Depression Risk 1 07/18/2024 Comments Unknown Sex and Gender Information Value Date Recorded Sex Assigned at Not on file Legal Sex Female 8:00 PM EDT Gender Identity Not on file Sexual Orientation Not on file documented as of this encounter Medications at Time of Discharge aspirin 81 MG chewable tablet Chew 1 tablet daily. 30 tablet 2 07/18/2024 buPROPion XL (Wellbutrin XL) 300 MG 24 hr tablet Take 1 tablet by mouth daily. 04/20/2024 citalopram (CeleXA) 40 MG tablet Take 1 tablet by mouth daily. 12/30/2022 hydrOXYzine HCl (Atarax) 10 MG tablet Take 1 tablet by mouth every 8 hours as needed. metoprolol tartrate (Lopressor) 25 MG tablet Take 1.5 tablets by mouth 2 times a day. 90 tablet 08/15/2024 primidone (Mysoline) 50 MG tablet Take 1 tablet by mouth 2 times a day. rosuvastatin (Crestor) 40 MG tablet Take 1 tablet by mouth nightly. 30 tablet 2 06/21/2024 6 traZODone (Desyrel) 50 MG tablet Take 1 tablet by mouth nightly. 07/30/2024 acetaminophen (Tylenol) 500 MG tablet Take 2 tablets by mouth every 6 hours as needed for pain, headaches or fever. 100 tablet 06/21/2024 5 Combivent Respimat 20-100 MCG/ACT inhaler 03/07/2023 5 fluticasone (Flonase) 50 MCG/ACT nasal spray Administer 2 sprays into each nostril daily as needed. 12/24/2023 5 loratadine (Claritin) 10 MG tablet Take 1 tablet by mouth daily. 5 methocarbamol (Robaxin) 500 MG tablet Take 2 tablets by mouth 4 times a day for 10 days. 80 tablet 06/21/2024 5 naloxone (Narcan) 4 mg/0.1 mL nasal spray 1. Give 1 spray in nostril for no/slow breathing or cannot wake after opioid use 2. Call 911 3. Repeat in other nostril if symptoms continue 1 each 06/21/2024 potassium chloride CR (Klor-Con M20) 20 MEQ ER tablet Take 2 tablets by mouth daily. Do not crush or chew. 60 tablet 07/18/2024 5 simethicone (Mylicon) 80 MG chewable tablet Chew 1.5 tablets 4 times a day. 30 tablet 06/21/2024 5 documented as of this encounter Miscellaneous Notes * Emmy Quintana N - 08/21/2024 12:22 PM EDT Images from the original note were not included. [id number] Caring for Yourself after Contrast Imaging If you had ORAL contrast: ?? You can go back to your normal diet and activities as tolerated. ?? Drink plenty of fluids, unless told otherwise. If you had IV contrast: ?? You can go back to your normal diet and activities as tolerated. ?? Drink plenty of fluids, unless told otherwise. ?? Leave a bandage on the site for 30 minutes (where the IV was inserted or blood was drawn). If you had Intravesical (bladder) contrast: ?? Return to normal diet and activity. What you need to know about delayed reaction to IV contrast What is IV Contrast? ?? Contrast is a dye that is put into your body through an IV. ?? It is used for imaging scans such as CT scans and MRIs. ?? The contrast makes blood vessels, organs and other parts of your body show up better on the scan. What do I need to do after IV contrast? ?? Drink lots of fluids. This will help flush the contrast out of your system. ?? Drink 2-3 extra glasses or bottles of water within 4 hours of your scan. What is a contrast reaction? ?? A contrast reaction is a bad side effect from the contrast dye. ?? It is rare but it does happen. ?? They can be mild - such as sneezing, itching, or hives. ?? They can be severe - such as trouble breathing, throat swelling, and irregular heart beat. When do these reactions happen? ?? They often happen right after the contrast is injected. ?? Some happen hours after going home. Go to the nearest Emergency Department right away if you have any of these symptoms after you leavethe clinic or hospital. ?? Sneezing ?? Itching in your mouth, throat, eyes, ears, or skin ?? Rash or hives ?? Throwing up or stomach sickness ?? High heart rate or ?racing? of your heart ?? Feeling dizzy or woozy ?? Feeling short of breath or like you can?t take a deep breath ?? Feeling very anxious for no other reason It is very important that these reactions be treated. Tell the doctor or nurse that you are having a reaction to IV contrast dye. Do not ignore any sign of a reaction! All reactions must be assessed by a doctor. Call 911 if you are alone and your reaction is more than mild sneezing or itching. If you have a mild reaction, call to speak with a Radiologist, explain that you havehad a contrast reaction, as this needs to be added to your medical record. 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) Right lower quadrant abdominal pain documented in this encounter Results * CT Abdomen Pelvis [...] encounter Visit Diagnoses Diagnosis 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) Colostomy status Right lower quadrant abdominal pain documented in this encounter Administered Medications Inactive Administered Medications - up to 3 most recent administrations Medication Order MAR Action Action Date Dose Rate Site iohexol (OMNIPaque) 300 MG/ML injection 100 mL 100 mL, Intravenous, Once in imaging, 1 dose, Starting on 08/21/24 at 1221, Until 08/21/24 at 1300, Routine, Imaging Protocol Orders Given 08/21/2024 1:00 PM EDT 100 mL iohexol (OMNIPaque) 9 MG/ML oral contrast 500 mL 500 mL, Oral, Once in imaging, 1 dose, Starting on 08/21/24 at 1221, Until 08/21/24 at 1224, Routine, Imaging Protocol Orders Given 08/21/2024 12:24 PM EDT 500 mL documented in this encounter Additional Health Concerns Assessment Noted Time PHQ-9 Depression Total Score: 1 06/30/19 25 2:40 PM EDT A fall risk assessment has been complete d for the patient 07/18/2024 11:10 AM EDT A Body Mass Index follow-up plan has been documented for the patient 08/27/2024 10:49 AM EDT documented as of this encounter Care Teams Coin Machine Collector Supervisor Relationship Specialty Start Date End Date Champ Quiroz MD [address] [place] [address] PCP - General Internal Medicine 06/29/24 documented as of this encounter
--- OUTSIDE RECORDS SUMMARY | 2024-08-30 11:00 | XMS_ITS ---
Author Organization [facility] Address [address] [place] [address] Care Team Providers Care Research Worker Encyclopedia Name Role Phone Michaelle Rivas Primary Care Provider Champ Quiroz Unavailable [phone] Allergies Allergen (clinical drug ingredient) Drug/Non Drug Allergy documented on EMR Reaction Allergy Type Onset Date Status LATEX GLOVES (uncoded) Unknown Allergy Active acetaminophen / oxycodone Percocet stomach upset, sweating Drug Allergy Active Results Component Value Reference Range Notes COMPREHENSIVE METABOLIC PANE L (60599) Reviewed date:09/03/2024 09:41:31 AM Interpretation: Performing Lab:MAN, [facility] [id number] [facility], [facility] HospitalKrirWM[address] Wil Bro Notes/Report: NON-FASTING; NON-FASTING GLUCOSE 104 65-99 mg/dL prediabetes and should be confirmed with a follow-up test. Fasting reference interval For someone without known diabetes, a glucose value between 100 and 125 mg/dL is consistent with UREA NITROGEN (BUN) 7 7-25 mg/dL CREATININE 0.81 0.50-1.03 mg/dL EGFR 86 > OR = 60 mL/min/1.73m2 BUN/CREATININE RATIO SEE NOTE: 6-22 (calc) Not Reported: BUN and Creatinine are within reference range. SODIUM 140 135-146 mmol/L POTASSIUM 4.2 3.5-5.3 mmol/L CHLORIDE 103 98-110 mmol/L CARBON DIOXIDE 30 20-32 mmol/L CALCIUM 9.0 8.6-10.4 mg/dL PROTEIN, TOTAL 6.4 6.1-8.1 g/dL ALBUMIN 3.6 3.6-5.1 g/dL GLOBULIN 2.8 1.9-3.7 g/dL (calc) ALBUMIN/GLOBULIN RATIO 1.3 1.0-2.5 (calc) BILIRUBIN, TOTAL 0.3 0.2-1.2 mg/dL ALKALINE PHOSPHATASE 139 37-153 U/L AST 19 10-35 U/L ALT 15 6-29 U/L CBC (INCLUDES DIFF/PLT) (639 9) Reviewed date:09/03/2024 09:41:31 AM Interpretation: Performing Lab:CB, [facility] [address], [facility] HospitalZhgbCN[address] Wil Bro Notes/Report: NON-FASTING; NON-FASTING WHITE BLOOD CELL COUNT 8.4 3.8-10.8 Thousand/ uL RED BLOOD CELL COUNT 4.34 3.80-5.10 Million/uL HEMOGLOBIN 12.6 11.7-15.5 g/dL HEMATOCRIT 41.3 35.0-45.0 % MCV 95.2 80.0-100.0 fL MCH 29.0 27.0-33.0 pg MCHC 30.5 32.0-36.0 g/dL For adults, a slight decrease in the calculated MCHC value (in the range of 30 to 32 g/dL) is most likely not clinically significant; however, it should be interpreted with caution in correlation with other red cell parameters and the patient's clinical condition. RDW 13.8 11.0-15.0 % PLATELET COUNT 523 140-400 Thousand/uL MPV 10.0 7.5-12.5 fL ABSOLUTE NEUTROPHILS 4948 9166-7197 cells/uL ABSOLUTE LYMPHOCYTES 2503 850-3900 cells/uL ABSOLUTE MONOCYTES 655 200-950 cells/uL ABSOLUTE EOSINOPHILS 202 15-500 cells/uL ABSOLUTE BASOPHILS 92 0-200 cells/uL NEUTROPHILS 58.9 LYMPHOCYTES 29.8 MONOCYTES 7.8 EOSINOPHILS 2.4 BASOPHILS 1.1 REASON FOR VISIT Light headedness, room spins when getting up x 4 days-had a fall after she had gotten dizzy Medications Medication SIG (Take, Route, Frequency, Duration) Notes Start Date End Date Status hydrOXYzine HCl 10 MG 1 tab orally every 8 hours; Duration: 30 days Active traZODone HCl 50 MG 1 tablet at bedtime as needed Orally Once a day; Duration: 30 days 07/30/2024 Active Rosuvastatin Calcium 40 MG 1 tablet Oral ly Once a day; Duration: 30 days Active Citalopram Hydrobromide 40 MG 1 tab(s) orally once a day; Duration: 90 days Active Combivent Respimat 20-100 MCG/ACT INHALE 1 PUFF BY MOUTH 4 TIMES DAILY; Duration: 30 days prn Active Primidone 50 MG 1 tab(s) orally twic e a day; Duration: 90 days Active Aspirin 81 81 MG 1 tablet Orally Once a day Active Vancomycin HCl qid Activ e Metoprolol Tartrate 25 MG 1/2 tab Orally Twice a day; Duration: 14 days Active Loratadine 10 MG 1 tablet Orally Once a day Active buPROPion HCl ER (XL) 300 MG 1 tab(s) orally every 24 hours; Duration: 30 days Active [...] e smoker (20-39 cigs/day) Vital Signs Temperature 97.5 degrees Fahrenheit 08/31/19 25 Heart Rate 92 /min 08/30/2024 Blood pressure systolic 98 mm Hg 08/31/19 25 Blood pressure diastolic 60 mm Hg 025 Height 5 ft 1 in in 08/30/2024 Weight 114 lbs 08/30/2024 BMI 21.54 kg/m2 08/30/2024 laying 98/58, sitting 98/56, standing 98/54 Encounters Encounter Location Date Provider Diagnosis [facility] [address] [place] [address] 08/30/2024 Michaelle Rob Vertigo R42 ; C. difficile colitis A04.72 and Atherosclerosis of [place] coronary artery of [place] heart without angina pectoris I25.10 Assessments Encounter Date Diagnosis (ICD Code) Assessment Notes Treatment Notes Treatment Clinical Notes Section Notes 08/30/2024 Vertigo (ICD-10 - R42) Reassurance. Discussed vertigo and that it is a time limited condition. Explained vertigo exercises and advised to perform twice daily, once with eyes open and then again with eyes closed. FU in 1-2 weeks if no improvement of symptoms. Given her recent health issues and c. diff will check CBC and CMP to confirm stability 08/30/2024 C. difficile colitis (ICD-10 - A04.72) Extensive review of [facility] and [facility] records Abdomen soft, nontender Continue Vanc Keep Fu with Dr. Troncoso [facility] 08/30/2024 Atherosclerosis of [place] coronary artery of [place] heart without angina pectoris (ICD-10 - I25.10) Decrease metoprolol for low normal blood pressure and fatigue Keep FU with [facility] cardiology next week Plan Of Treatment Medication Medication Name Sig Start Date Stop Date Notes Metoprolol Tartrate 25 MG 1/2 tab Orally Twice a day; Duration: 14 days Treatment Notes Assessment Notes Vertigo Reassurance. Discussed vertigo and that it is a time limited condition. Explained vertigo exercises and advised to perform twice daily, once with eyes open and then again with eyes closed. FU in 1-2 weeks if no improvement of symptoms. Given her recent health issues and c. diff will check CBC and CMP to confirm stability C. difficile colitis Extensive review of [facility] and [facility] records Abdomen soft, nontender Continue Vanc Keep Fu with Dr. Troncoso [facility] Atherosclerosis of [place] co ronary artery of lo[place] heart without angina pectoris Decrease metoprolol for low normal blood pressure and fatigue Keep FU with [facility] cardiology next week Next Appt Details Follow Up: 4 Weeks, Reason: Provider Name:Champ Quiroz, 10/31/2024 03:15:00 PM, [address] [facility], [address], [place], [address], Progress Notes * Rere REESE ADOB: [birth year] (53 yo F)Acc No.[id number]:08/30/2024 Progress Notes Patient: Rere DICKSON Provider: Chelle Rivas APRN :1970 A ge:53 Y S ex:Female Date:08/30/2024 Address:[address] [place] [address] [place] [id number] Subjective: * Chief Complaints: * 1 . Light headedness, room spins when getting up x 4 days-had a fall after she had gotten dizzy. 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 difficile presents for evaluation of dizziness and fatigue. Reports fatigue since she was started on metoprolol. Dizziness began 3-4 days ago, is associated with movement, especially turning to the left. Caused her to fall yesterday, denies injury. Nearing end of vanc treatment for C Diff. Stool has decreased, no blood or mucus, no fevers. Appetite is a little better. + nausea, no vomiting. * ROS: A LLERGY: no R unny nose. R ESPIRATORY: no C hest congestion. n o C ough. C ARDIOLOGY: Reviewed, No Symptoms Reported: Y es. C ONSTITUTIONAL: no L oss of appetite. n o F ever. D ERMATOLOGY: no R aimee. G ASTROENTEROLOGY: Reviewed, No Symptoms Reported: Y es. H EMATOLOGY/LYMPH: no S wollen glands. n o E asy bruising. ? N EUROLOGY: Positive for t remors. n o H eadache. n o D izziness. U ROLOGY: Dysuria n o. n o D ifficulty urinating. n o?Blood in urine. * Medical History: H ormone replacement therapy, Depression, Copd, Asthma, Smoker, Tremors, Coronary artery disease, status post CABG May 08 at [facility], Sepsis, bowel ischemia and colostomy April/2024 at [facility]. * Surgical History: l t rotator cuff 2020, rt hand surgery 01/2023, colon resection 04/30/24. * Hospitalization/Major Diagno stic Procedure: [facility] 01/2022, [facility]- heart attach 04/30/2024-06/28/24, Septic 07/24/2024, [facility]- abd pain 07/2024. * Family History: F ather: , Cholesterol , lung issues, diagnosed with Heart Disease. M other: . P aternal Grand Father: . P aternal Grand Mother: . M aternal Grand Father: . M aternal Grand Mother: . P aternal uncle: alive. M aternal uncle: alive. M aternal aunt: alive. S iblings: alive. C abida: alive. 2 sister(s) - healthy. 2 son(s) [...] active: no. Travel outside [place]: no. 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 * Medications: T aking Vancomycin HCl , Notes to Pharmacist: qid, Taking Metoprolol Tartrate 25 MG Tablet 1 tablet Orally Twice a day , Taking Loratadine 10 MG Tablet 1 tablet Orally Once a day , Taking Aspirin 81 81 MG Tablet Delayed Release 1 tablet Orally Once a day , Taking Primidone 50 MG Tablet 1 tab(s) orally twice a day , Taking Combivent Respimat 20-100 MCG/ACT Aerosol Solution INHALE 1 PUFF BY MOUTH 4 TIMES DAILY , Notes to Pharmacist: prn, Taking Citalopram Hydrobromide 40 MG Tablet 1 tab(s) orally once a day , Taking hydrOXYzine HCl 10 [...] 1 tab(s) orally every 24 hours , Discontinued Simethicone 80 MG Tablet Chewable 1 tablet after meals and at bedtime as needed Orally Four times a day , Discontinued Flonase Allergy Relief 50 MCG/ACT Suspension 1 spray in each nostril Nasally Twice a day , Discontinued Acetaminophen 500 MG Tablet 2 tablet as needed Orally every 6 hrs , Discontinued Pyridium 200 MG Tablet 1 tablet after meals Orally Three times a day , Medication List reviewed and reconciled with the patient * Allergies: L ATEX GLOVES, Percocet: stomach upset, sweating - Side Effects. Objective: * Vitals: N urse: jl, Pain: 0, Temp: 97.5, RR: 18, HR: 92, BP: 98/60, Ht: 5 ft 1 in, Wt: 114, BMI:21.54. laying 98/58, sitting 98/56, standing 98/54. * Examination: G eneral Examination: General P leasant and Cooperative, NAD on RA,. Chest: n ormal shape and expansion. Heart: R egular Rate and Rhythm, no murmur, rubs or gallops. Lungs: L CTAB, No wheezes, crackles or rhonchi, Good air movement,. Abdomen: S oft, NTND, BSNA, No organomegaly or peritoneal signs. large vertical midline scar, colostomy site unremarkable with scant green stool in bag. Neurologic Exam: h allpike manouvre positive, Moves All 4 Extremities Equally, Alert and oriented x 3 . Skin: w ithout acute rashes. Peripheral pulses: n ormal (2+) bilaterally. neck s upple,, no thyromegaly,, no lymphadenopathy,. Psych N ormal Mood/Affect. Assessment: * Assessment: 1. V ertigo - R42 (Primary) 2 . C . difficile colitis - A04.72 ?3. A therosclerosis of [place] coronary artery of [place] heart without angina pectoris - I25.10 Plan: * Treatment: 2. C . difficile colitis Notes: Extensive review of [facility] and [facility] records Abdomen soft, nontender Continue Vanc Keep Fu with Dr. Troncoso [facility] 3. A therosclerosis of [place] coronary artery of [place] heart without angina pectoris Decrease Metoprolol Tartrate Tablet, 25 MG, 1/2 tab, Orally, Twice a day, 14 days, 1, Refills 1.? Notes: Decrease metoprolol for low normal blood pressure and fatigue Keep FU with [facility] cardiology next week * Labs: * L ab: COMPREHENSIVE METABOLIC PANEL (46571) Value Reference Range G LUCOSE 104 H 65-99 - mg/dL * U JOSUE NITROGEN (BUN) 7 7-25 - mg/dL * C REATININE 0.81 0.50-1.03 - mg/dL * B UN/CREATININE RATIO SEE NOTE: 08-05 - (calc) * S ODIUM 140 135-146 - mmol/L * P OTASSIUM 4.2 3.5-5.3 - mmol/L * C HLORIDE 103 98-110 - mmol/L * C ARBON DIOXIDE 30 20-32 - mmol/L * C ALCIUM 9.0 8.6-10.4 - mg/dL * P ROTEIN, TOTAL 6.4 6.1-8.1 - g/dL * A LBUMIN 3.6 3.6-5.1 - g/dL * G LOBULIN 2.8 1.9-3.7 - g/dL (calc ) * A LBUMIN/GLOBULIN RATIO 1.3 1.0-2.5 - (calc) * B ILIRUBIN, TOTAL 0.3 0.2-1.2 - mg/dL * A LKALINE PHOSPHATASE 139 37-153 - U/L * A ST 19 10-35 - U/L * A LT 15 6-29 - U/L * E GFR 86 > OR = 60 - mL/min/1 .73m2 * Michaelle Rivas 09/04/19 08:48:28 AM EDT > labs look good Laura Castellon 09/03/2024 09:41:22 AM EDT > Patient informedThis lab was reviewed by Laura Castellon on 09/03/2024 at 09:41 AM EDT ?Lab: CBC (INCLUDES DIFF/PLT) (5298)* Value Reference Range W LUMA BLOOD CELL COUNT 8.4 3.8-10.8 - Thousan d/uL * R ED BLOOD CELL COUNT 4.34 3.80-5.10 - Million/ uL * H EMOGLOBIN 12.6 11.7-15.5 - g/dL * H EMATOCRIT 41.3 35.0-45.0 - % * M CV 95.2 80.0-100.0 - fL * M CH 29.0 27.0-33.0 - pg * M CHC 30.5 L 32.0-36.0 - g/dL * R DW 13.8 11.0-15.0 - % * P LATELET COUNT 523 H 140-400 - Thousand/u L * N EUTROPHILS 58.9 - % * A BSOLUTE NEUTROPHILS 4948 0974-6262 - cells/uL * L YMPHOCYTES 29.8 - % * A BSOLUTE LYMPHOCYTES 2503 850-3900 - cells/uL * M ONOCYTES 7.8 - % * A BSOLUTE MONOCYTES 655 200-950 - cells/uL * E OSINOPHILS 2.4 - % * A BSOLUTE EOSINOPHILS 202 15-500 - cells/uL * B ASOPHILS 1.1 - % * A BSOLUTE BASOPHILS 92 0-200 - cells/uL * M PV 10.0 7.5-12.5 - fL * Michaelle Rivas 09/04/19 08:48:28 AM EDT > labs look good Laura Castellon 09/03/2024 09:41:22 AM EDT > Patient informedThis lab was reviewed by Laura Castellon on 09/03/2024 at 09:41 AM EDT * Follow Up: 4 Weeks * * Sign off status: Completed true * Provider: Chelle Rivas APRN Date: 08/30/2024 Generated for Little catalan/Fior/Lataitting on: 10/11/2024 03:36 PM EDT History and Physical Notes * HPI (History of Present Illness) Category Sub-Category Detail Notes Category Not es gen 53-year-old fem melania who underwent CABG x 4 05/07, complicated by mesenteric ischemia/colon perforation which resulted in left colectomy with colostomy creation who is currently on vancomycin for C. difficile presents for evaluation of dizziness and fatigue. Reports fatigue since she was started on metoprolol. Dizziness began 3-4 days ago, is associated with movement, especially turning to the left. Caused her to fall yesterday, denies injury. Nearing end of vanc treatment for C Diff. Stool has decreased, no blood or mucus, no fevers. Appetite is a little better. + nausea, no vomiting Examination Category Sub-Category Detail Notes Category Not es General Examination Heart: Regular Rate and Rhythm, no murmur, rubs or gallops Lungs: LCTAB, No wheezes, c rackles or rhonchi, Good air movement, Abdomen: Soft, NTND, BSNA, No organomegaly or peritoneal signs. large vertical midline scar, colostomy site unremarkable with scant green stool in bag Skin: without acute rashes Neurologic Exam: hallpike manouvre po sitive, Moves All 4 Extremities Equally, Alert and oriented x 3 Peripheral pulses: normal (2+) bilatera lly Chest: normal shape and exp ansion neck supple,, no thyromeg pedro,, no lymphadenopathy, General Pleasant and Coopera tive, NAD on RA, Psych Normal Mood/Affect
--- OUTSIDE RECORDS SUMMARY | 2024-09-17 22:40 | XMS_ITS | Encounter Summary ---
Author Organization Healthcare Address [address] [place] [address] Care Team Providers Care Water Commissioner Name Role Phone Champ Quiroz MD Primary Care Provider [phone] Reason for Visit * Auth/Cert (Routine) Specialty Diagnoses / Procedures Referred By Contac t Referred To Contact Diagnoses Enteritis hx. colonic ischemia, colostomy in place. Swollen/painful stoma Betty Garcia MD [address] [address] Phone: tel: fax: [facility] [address] [place] [address] Phone: tel: Referral ID Status Reason Start Date Expiration Date Visits Re quested Visits Authorized [id number] 1 1 Encounter Details Date Type Department Care Team (Latest Contact Info) Description 09/17/2024 10:40 PM EDT - 09/23/2024 12:05 PM EDT Hospital Encounter [facility] Inpatient [address] [place] [id number] Betty Garcia MD [address] [address] Tere Snow MD [address] [address] Enteritis (Primary Dx) Discharge Disposition: [...] time in the past 12 m [facility], were you homeless or living in a intermediate (including now)? No 09/21/2024 CAGE ASSESSMENT Answer [...] drink first t jaime in the morning (EYE-TIP PUNCHER) to steady your nerves or to get rid of a hangover? 0 09/17/2024 CAGE Questionnaire Score 0 025 Utilities Answer Date Recorded In the past 12 months has th Systems Integration, gas, oil, or water Postachio threatened to shut off services in your [...] Risk Indicated 09/23/2024 7:19 AM EDT Kehinde Adnrade RN * Question Answer Date of Assessment [...] Leola Montano, Nurse Coordinator between 7am-3pm at [phone]. If it is after hours, weekends, and holidays please call [phone] and ask for the resident information delivery analyst for Emergency General Surgery. For appointments please call our General Surgery Clinic at [phone]. Medication requests should be made between the hours of 9:00 AM to 3:00 PM Tuesday thru Tuesday. Please note that based upon recent changes to [place] law related to prescribing opioid pain medications, [...] Note Rere Reese 53 y.o. female CSN: [id number] Admission: 09/17/2024 10:40 PM Primary Problem: Enteritis Anticipated Discharge Date: 09/23/24 Pharmacy Voucher: Meets 300% [employer]. KENJI watson . Patient reports no resources to cover cost of essential discharge medications this date. Essential medications for a safe discharge vouchered thru [facility]. Voucher #: [id number] Medications/cost: Augmentin XR 100 mg # 8 Additional Comments Ching Day RN * Kehinde Hebert RN - 09/23/2024 9:01 AM EDT Images from the original note were not included. [id number] Colitis: Care Instructions Overview Colitis is the [...] this instruction, always ask your healthcare professional. [employer] disclaims any warranty or liability for your use of this information. ?? [id number] [employer]. * Discharge Summary - Ann-Marie Vera MD - 09/23/2024 8:38 AM EDT Hospitalization Admit Date/Time: 09/17/2024 10:40 PM Admitting Attending: Betty Garcia Discharge Date: 09/23/2024 Discharge Attending Physician: Betty Garcia MD PCP name and Address: Champ Quiroz MD [address] / [place] [address] Referring provider name and address: Sundeep Fisher [address] [place] [address] [place] [address] Chief Concern, Brief History of Present Illness, [...] Your Medications These medications were sent to [facility] - [place], [place] - [address], [facility] [place] [address] acetaminophen 500 MG tablet amoxicillin-clavulanate XR 1000-62.5 [...] monitor and replete if needed S/P colostomy ([facility] Current Assessment & Plan 09/17/2024 Hospital Encounter [...] Leola Montano, Nurse Coordinator between 7am-3pm at [phone]. If it is after hours, weekends, and holidays please call [phone] and ask for the resident information delivery analyst for Emergency General Surgery. For appointments please call our General Surgery Clinic at [phone]. Medication requests should be made between the hours of 9:00 AM to 3:00 PM Tuesday thru Tuesday. Please note that based upon recent changes to [place] law related to prescribing opioid pain medications, our providers will not provide refills on controlled medications after your hospital discharge following a major surgery or trauma. [place] 201 KAR9:260. Outpatient Follow-Up Future Appointments Date Time Provider Department Center 10/30/2024 10:45 AM Lidia Troncoso MD [facility] Test Results Pending At Discharge Pending [...] Outcome Evaluation: pt arrived to unit from [facility], went over plan of care with pt. [...] Medication Review/Management: medications reviewed Taken 09/20/2024918 by Marysol Lopez RN Self-Care Promotion: independence encouraged BADL [...] or Manage Pain Flowsheets Taken 09/22/20241125 by Geno Guillory, technical support analyst Review/Management: medications reviewed Taken 09/20/2024918 by Marysol Lopez, JAMARI Sensory Stimulation Regulation: quiet environment promoted lighting decreased care clustered Bowel Elimination Promotion: ambulation promoted Sleep/Rest Enhancement: awakenings minimized consistent schedule promoted noise level reduced natural light exposure provided Taken 09/19/20241126 by Lexy Roblero Complementary Therapy: essential oils utilized Problem: Infection Goal: Absence of Infection Signs and Symptoms Outcome: Ongoing, Progressing Intervention: Prevent or Manage Infection Flowsheets Taken 09/22/20241999 by eKlvin Yousif RN Isolation Precautions: precautions maintained Taken 09/20/2024918 by Marysol Lopez, JAMARI Infection Management: aseptic technique maintained Fever Reduction/Comfort [...] and Electrolyte Balance Flowsheets (Taken 09/20/2024918 by Marsyol Lopez RN) Fluid/Electrolyte Management: fluids provided fluids [...] Pain Management Interventions: medication (see MAR) Taken 09/22/2024 112 by Geno Guillory RN Diversional Activities: smartphone [...] 9:45 AM EDT Associated Problem(s): S/P colostomy (CMS/HCC) Continue to monitor ostomy output * Assessment [...] Surgical ICU Daily Progress Note 09/22/24 Rere Reese HPI 53 yo female with [...] of illness and hospitalization. Edited by: Tom Hudson MD at 09/22/2024 1346 Relevant review of [...] by Drain (mL) 09/20/24 07 - 09/20/24 18509/20/241899 - 09/21/24 0659 09/21/24 07 - 09/21/24 [...] Ricardo PA COPD (chronic obstructive pulmonary disease) ([facility] Overview Deleted 06/14/2024 1:34 PM by Uriah Ricardo PA Tobacco use Overview Addendum 06/14/2024 1:35 PM by Uriah Ricardo PA NSTEMI (non-ST elevated myocardial infarction) ([facility]) Overview Addendum 06/14/2024 1:31 PM by Uriah [...] Outcome Evaluation: pt arrived to unit from [facility], went over plan of care with pt. [...] Skin Protection Flowsheets Taken 09/22/2024399 by Brandie Mason, RN Head of Bed (HOB) Positioning: HOB [...] precautions maintained contact Taken 09/20/2024918 by Marysol Lopez, RN Infection Management: aseptic technique maintained Fever [...] Note Rere Reese 53 y.o. female CSN: [id number] Admission: 09/17/2024 10:40 PM Primary Problem: Enteritis Wigs Salesperson reviewed chart and spoke with patient at bedside to complete this Initial Case Management Assessment. PCP: Champ Quiroz MD Emergency Contact: Extended Emergency Contact Information Primary Emergency Contact: janeth erazo Mobile Relation: Daughter Preferred language: Togolese Manager Materials Management needed? No Secondary Emergency Contact: Tony Reese Mobile Relation: Son Insurance: Primary Visit Coverage Payer Plan Sponsor Code Group Number Group Name [employer] Primary Visit Coverage Subscriber Subscriber ID Subscriber Name Subscriber SSN Subscriber Address [id number] RERE REESE [id number] [place] [address] Patient information: Lives with/provides care for aunt at: [address] [place] [address] Patient discharging to parents' home: [address] [place] [address] Patient will have 24HR care available if needed (parents and has sister that lives very closeby) Primary Caregiver: Self Support System: Immediate family Daily Living Activities: Functional Status: Independent Living Arrangements: Family (Patient plans to discharge to her parents' home) Type of Residence: Private residence Smoker in the Home?: Yes Current DME: Equipment Currently Used at Home: gonzalez, berta Income Information: Income Source: Unknown (Patient reports [...] Outpatient Dialysis Services: Living Will/Advance Directive/Power of Electronics Engineering Technologist /Guardian: Have you reviewed your Advance Directive and is it valid for this stay?: No Advance Directive: Patient does not have advance directive Information Provided on Healthcare Directives: No Pre-existing DNR/DNI Order: No Patient Requests Assistance: No Additional Comments: Per primary treatment team, patient is not medically ready to discharge at this time. CM will continue to follow and assist [...] 10:32 AM EDT Associated Problem(s): S/P colostomy ([facility]) Continue to monitor ostomy output * Assessment [...] Airway None Output by Drain (mL) 09/19/24 07 - 09/19/24 1859 09/19/24 190 [...] place Enteritis treatment as above S/P colostomy ([facility]) Continue to monitor ostomy output Prolonged Q-T [...] Ricardo PA COPD (chronic obstructive pulmonary disease) ([facility]) Overview Deleted 06/14/2024 1:34 PM by Uriah Ricardo PA Tobacco use Overview Addendum 06/14/2024 1:35 PM by Uriah Ricardo PA NSTEMI (non-ST elevated myocardial infarction) ([facility]) Overview Addendum 06/14/2024 1:31 PM by Uriah [...] Overview Deleted 06/14/2024 1:33 PM by Uriah Ricardo, KENJI Post-op pain Overview Deleted 06/14/2024 1:33 PM [...] plan as documented. Tere Snow MD, FACS intranet support Trauma Acute Care Surgery * Care Plan - Brandie Mason RN - 09/21/2024 5:02 AM EDT Problem: Adult Inpatient Plan of Care Goal: Plan of Care Review Outcome: Ongoing, Progressing Flowsheets Taken 09/20/2024918 by Marysol Lopez RN Progress: improving Plan of Care Reviewed With: patient Taken 09/18/2024 0024 by Mendy Matthews RN Outcome Evaluation: pt arrived to unit from [facility], went over plan of care with pt. [...] Position: weight shifting Taken 09/20/2024918 by Marysol Lopez RN Skin Protection: transparent dressing maintained pulse oximeter probe site changed Intervention: Prevent and Manage VTE (Venous Thromboembolism) Risk Flowsheets (Taken 09/21/2024399) VTE Prevention/Management: bilateral SCDs (sequential compression devices) on Intervention: Prevent Infection Flowsheets (Taken 09/20/2024918 by Marysol Lopez RN) Infection Prevention: personal protective equipment utilized [...] Edited by: Tom Hudson MD at 09/20/2024 0924 Relevant review of systems was obtained as [...] Output by Drain (mL) 09/18/24 0700 - 09/18/24185809/18/24 190 - 09/19/24 0659 09/19/24 07 - 09/19/24 1859 09/19/241899 - 09/20/24 0659 09/20/24 07 - 09/20/24 [...] place Enteritis treatment as above S/P colostomy ([facility]) Present on Admission: Not Applicable Continue to [...] Ricardo PA COPD (chronic obstructive pulmonary disease) ([facility]) Overview Deleted 06/14/2024 1:34 PM by Uriah Ricardo PA Tobacco use Overview Addendum 06/14/2024 1:35 PM by Uriah Ricardo PA NSTEMI (non-ST elevated myocardial infarction) ([facility] Overview Addendum 06/14/2024 1:31 PM by Uriah [...] plan as documented. Tere Snow MD, FACS intranet support Trauma Acute Care Surgery * Care Plan [...] Reduction/Comfort Measures: lightweight clothing lightweight bedding Taken 09/20/2024799 Isolation Precautions: precautions maintained contact Problem: Surgery [...] Progress: improving Taken 09/18/2024 0024 by Mendy Matthews, JAMARI Outcome Evaluation: pt arrived to unit from [facility], went over plan of care with pt. [...] Intervention: Identify and Manage Contributors Flowsheets (Taken 09/19/2024 08 by Lexy Roblero) Medication Review/Management: medications reviewed Self-Care Promotion: independence encouraged Problem: Skin Injury Risk Increased Goal: Skin Health and Integrity Outcome: Ongoing, Progressing Intervention: Optimize Skin Protection Flowsheets Taken 09/20/2024 0000 by Kelvin Yousif RN Activity Management: activity minimized Head of Bed (HOB) Positioning: HOB at 20-30 degrees Taken 09/19/2024 1600 by Lexy Roblero Skin Protection: incontinence pads utilized Taken 09/19/2024 08 by Lexy Roblero Pressure Reduction Techniques: frequent weight shift encouraged heels elevated off bed pressure points protected Taken 09/18/20242128 by Sarah Johnson RN Pressure Reduction Devices: specialty bed utilized Intervention: Promote and Optimize Oral Intake Flowsheets (Taken 09/19/2024 08 by Lexy Roblero) Oral Nutrition Promotion: rest [...] Fluid and Electrolyte Balance Flowsheets (Taken 09/19/2024 1127 by Lexy Roblero) Fluid/Electrolyte Management: fluids provided [...] Outcome Evaluation: pt arrived to unit from [facility], went over plan of care with pt. Plan of Care Reviewed With: patient 09/19/2024 1111 by Lexy Roblero Outcome: Ongoing, Progressing Flowsheets Taken 09/18/20242128 by Sarah Johnson RN Progress: improving Taken 09/18/2024 0024 by Mendy Matthews RN Outcome Evaluation: pt arrived to unit from [facility], went over plan of care with pt. [...] and Manage Contributors 09/19/2024 1127 by Lexy Roblero (Taken 09/19/2024 0800) Medication [...] (HOB) Positioning: HOB at 30 degrees Taken 09/18/20249 by Sarah Johnson RN Pressure Reduction Devices: specialty bed utilized Intervention: Promote and Optimize Oral Intake 09/19/2024 112 by Lexy Roblero Flowsheets (Taken 09/19/2024 0800) [...] Prevent or Manage Pain Flowsheets Taken 09/19/2024 112 Sensory Stimulation Regulation: quiet environment promoted Complementary Therapy: essential oils utilized Bowel Elimination Promotion: ambulation promoted Sleep/Rest Enhancement: consistent schedule promoted natural light exposure provided noise level reduced regular sleep/rest pattern promoted relaxation techniques promoted Taken 09/19/2024 08 Medication Review/Management: medications reviewed Problem: Infection Goal: Absence of Infection Signs and Symptoms Outcome: Ongoing, Progressing Intervention: Prevent or Manage Infection Flowsheets Taken 09/19/2024 1127 Infection Management: aseptic technique maintained Fever Reduction/Comfort Measures: lightweight bedding Taken 09/19/2024 08 Isolation Precautions: contact Problem: Surgery Nonspecified Goal: Absence of Bleeding Outcome: Ongoing, Progressing Intervention: Monitor and Manage Bleeding Flowsheets (Taken 09/19/2024 112) Bleeding Management: dressing monitored Goal: Effective Bowel Elimination Outcome: Ongoing, Progressing Intervention: Enhance Bowel Motility and Elimination Flowsheets (Taken 09/19/2024 112) Bowel Elimination Management: hygiene measures promoted relaxation techniques promoted toileting offered Bowel Motility Enhancement: ambulation promoted fluid intake encouraged oral intake encouraged Goal: Fluid and Electrolyte Balance Outcome: Ongoing, Progressing Intervention: Monitor and Manage Fluid and Electrolyte Balance Flowsheets (Taken 09/19/2024 112) Fluid/Electrolyte Management: fluids provided * Assessment & [...] Active Airway None Output by Drain (mL) 09/17/24699 - 09/17/24 1859 09/17/241899 - 09/18/24 0659 09/18/24 07 - 09/18/24 1859 09/18/24 190 - 09/19/24 0659 09/19/24 07 - 09/19/24 [...] Ricardo PA COPD (chronic obstructive pulmonary disease) ([facility]) Overview Deleted 06/14/2024 1:34 PM by Uriah Ricardo PA Tobacco use Overview Addendum 06/14/2024 1:35 PM by Uriah Ricardo PA NSTEMI (non-ST elevated myocardial infarction) ([facility]) Overview Addendum 06/14/2024 1:31 PM by Uriah [...] Incomplete RBBB Tremor Hypertriglyceridemia Hypoalphalipoproteinemia S/P colostomy ([facility]) S/P colon resection BMI 22.0-22.9, adult To [...] Edited by: Tere Snow MD at 09/19/2024 8521 Cheryl Aguirre MD Cosigned by Tere Snow MD at 09/19/2024 1:31 PM EDT Associated attestation - Tere Snow MD - 09/19/2024 1:31 PM EDT I saw and evaluated the patient with the resident/fellow. I discussed the case with the resident/fellow and agree with the findings and plan as documented. Tere Snow MD, FACS intranet support Trauma Acute Care Surgery * Assessment & [...] Progress: improving Taken 09/18/2024 0024 by Mendy Matthews, JAMARI Plan of Care Reviewed With: patient 09/18/20242125 by Sarah Johnson RN Outcome: Ongoing, Progressing Goal: Patient-Specific Goal (Individualized) 09/18/20242128 by Sarah Johnson RN Outcome: Ongoing, Progressing Flowsheets Taken 09/18/20242128 by Sarah Johnson RN Anxieties, Fears or Concerns: rest/sleep Taken 09/18/2024 1000 by Kaylee Trujillo RN Patient/Family-Specific Goals (Include Timeframe): pt will be hemodynamically stable through shift Individualized Care Needs: hemodynamic stability 09/18/20242125 by Sarah Johnson RN Outcome: Ongoing, Progressing Goal: Absence of [...] Comfort Flowsheets (Taken 09/18/2024 1356 by Kaylee Trujillo RN) Pain Management Interventions: medication (see MAR) [...] incontinence pads utilized protective footwear used Taken 09/18/20242099 by Sarah Johnson RN Activity Management: ambulated [...] Encinas RN Authorized by: Tere Snow MD [place] Protocol: Verbal consent obtained?: Yes Risks and [...] Note Rere Reese 53 y.o. female CSN: [id number] Admission: 09/17/2024 10:40 PM Primary Problem: Enteritis [...] Edited by: Cheryl Aguirre MD at 09/18/2024 9316 Relevant review of systems was obtained as [...] 09/17/24 1859 09/17/24 190 - 09/18/24 0659 09/18/24699 - 09/18/24 1712 Requested LDAs do not [...] Ricardo PA COPD (chronic obstructive pulmonary disease) ([facility]) Overview Deleted 06/14/2024 1:34 PM by Uriah Ricardo PA Tobacco use Overview Addendum 06/14/2024 1:35 PM by Uriah Ricardo PA CAD, multiple vessel Overview Addendum 06/14/2024 1:31 PM by Uriah Ricardo PA Patient presented to [facility]SH on 05/01/24 c/o chest pain, LHC reveal mvCAD S/p CABG with Dr. Austin on 05/07 NSTEMI (non-ST elevated myocardial infarction) ([facility]) Overview Addendum 06/14/2024 1:31 PM by Uriah Ricardo PA Diagnosed at OSH with elevated troponins of 0.05 to 0.23 to 0.16 GERD (gastroesophageal reflux disease) Overview Deleted 06/14/2024 1:34 PM by Uriah Ricardo PA Essential tremor Thrombocytosis Hypocalcemia Hyperlipidemia Overview Deleted 06/14/2024 1:33 PM by Uirah Ricardo PA THOM (obstructive sleep apnea) Overview [...] Incomplete RBBB Tremor Hypertriglyceridemia Hypoalphalipoproteinemia S/P colostomy ([facility]) S/P colon resection BMI 22.0-22.9, adult To [...] Edited by: Tere Snow MD at 09/18/2024 5508 Cheryl Aguirre MD Acute Care Surgery Faculty I have seen and examined this patient with the Trauma Acute Care Surgery team. I attest to the resident note after review. We reviewed all pertinent labs, xrays and education sales consultant reports and determined a plan of [...] edited note comments Tere Snow MD, FACS intranet support Trauma Acute Care Surgery * Consults - Marva Connelly RD - 09/18/2024 9:24 AM EDT Adult Nutrition Evaluation Note Rere Reese 53 y.o. female CSN: [id number] Room/Bed 123/123A Nutrition evaluation type: assessment Reason [...] Intake/Output Summary (Last 24 hours) at 09/18/2024 0933 Last data filed at 09/18/2024 0000 Gross per 24 hour Intake 480 ml Output -- Net 480 ml Nutrition Support: Diet Experience & Nutrition History: Diet Education: Will monitor- Follows decreased Fiber BUNCH MAKER HAND. Pertinent Home Medications: Noted Metabolic Cart Study Results: Nutrition Focused Physical Exam: Physical exam performed on (date): Pending. Assessment of Malnutrition: Nutrition Problem: Decreased oral intake related to abdominal pain as evidenced by decreased PO/weight loss BUNCH MAKER HAND. Status of Nutrition Diagnosis: New Nutrition Interventions [...] Date Anxiety COPD (chronic obstructive pulmonary disease) ([facility]) 05/01/2024 Continue Duo nebs q6 SPO2 goal >88% Coronary artery disease Depression GERD (gastroesophageal reflux disease) 05/01/2024 Continue Protonix 40 mg daily History of transfusion Hyperkalemia 05/06/2024 Now resolved, pt with hypokalemia requiring replacement Hypertension On mechanically assisted ventilation ([facility]) 05/06/2024 Arrived to ICU intubated 05/07 extubated to 4LNC 05/08 resolved Tobacco use 05/01/2024 Patent Paralegal for smoking 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 Complicates all [...] Brush RN patient to be transported to [facility] * Significant Event - Vicky Jessica [...] and tobacco abuse. She initially presented to [facility] on 09/17 and was transferred to for [...] Date Anxiety COPD (chronic obstructive pulmonary disease) ([facility]) 05/01/2024 Continue Duo nebs q6 SPO2 goal >88% Coronary artery disease Depression GERD (gastroesophageal reflux disease) 05/01/2024 Continue Protonix 40 mg daily History of transfusion Hyperkalemia 05/06/2024 Now resolved, pt with hypokalemia requiring replacement Hypertension On mechanically assisted ventilation ([facility]) 05/06/2024 Arrived to ICU intubated 05/07 extubated to 4LNC 05/08 resolved Tobacco use 05/01/2024 Patent Paralegal for smoking 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 Complicates all [...] Cheryl Aguirre MD 1 g at 09/18/24 183 oxyCODONE (Roxicodone) immediate release tablet 5 mg [...] flush 10 mL 10 mL Intravenous q12h Feim Lindo MD 10 mL at 09/18/24 1450 [...] 92%. Results Review {Vanishing Link Review Results :[id number] I have reviewed the latest lab and imaging results with the following pertinent results: ECG 09/18 significant for prolonged QT(chronic) and IRBBB (chronic). CTA abd & pelvis / significant for atherosclerosis calcification of celiac and [...] Outcome Evaluation: pt arrived to unit from [facility], went over plan of care with pt. [...] Description 11/06/2024 11:00 AM EDT Office Visit [facility] [address] [place] [address] Lidia Troncoso MD [address] [place] [address] documented as of this encounter [...] - 99 mg/dL 09/23/2024 1:45 AM EDT [facility] BUN, Plasma 5(L) 7 - 21 mg/dL 09/23/2024 1:45 AM EDT [facility] Creatinine, Plasma 0.69 0.60 - 1.10 mg/dL 09/23/2024 1:45 AM EDT [facility] BUN/Creatinine Ratio 7 09/23/2024 1:45 AM EDT [facility] [facility] Sodium, Plasma 137 136 - 145 mmol/L 09/23/2024 1:45 AM EDT [facility] Potassium, Plasma 4.3 3.6 - 4.9 mmol/L 09/23/2024 1:45 AM EDT [facility] Chloride, Plasma 103 97 - 107 mmol/L 09/23/2024 1:45 AM EDT [facility] CO2, Plasma 25 22 - 29 mmol/L 09/23/2024 1:45 AM EDT [facility] Anion Gap 9 6 - 16 mmol/L 09/23/2024 1:45 AM EDT [facility] Total Calcium, Plasma 8.3(L) 8.9 - 10.2 mg/dL 09/23/2024 1:45 AM EDT [facility] eGFRcr 103.3 mL/min/1.7 3m*2 09/23/2024 1:45 AM EDT [facility] Comment:Reported eGFRcr in m L/min/1.73m2 is based the CKD-EPI 2020 equation that does not use a race coefficient. Blood Venous blood specimen / Unknown Venipuncture / Unknown 09/23/2024 1:08 AM EDT 09/23/2024 1:12 AM EDT us Marysol D Live MD LAB BLOOD ORDERABLES Final Result [facility] [address] [place] [address] * Magnesium, Plasma (09/23/2024 1:08 AM EDT) Pathologist [facility] Magnesium, Plasma 2.1 1.9 - 2.4 mg/dL 09/23/2024 1:45 AM EDT [facility] Blood Venous blood specimen / Unknown Venipuncture / Unknown 09/23/2024 1:08 AM EDT 09/23/2024 1:12 AM EDT Marysol Mancini MD LAB BLOOD ORDERABLES Final Result Performing Organization Address [facility]/ZIP Co de Phone Number [facility] [address] [place] [address] * (ABNORMAL) CBC W/O Differential (09/23/2024 1:08 AM EDT) Pathologist [facility] WBC Count 9.97 3.70 - 10.30 10*3/uL LAB HEMATOLOGY METHOD 09/23/2024 1:21 AM EDT [facility] RBC Count 3.98 3.90 - 5.20 10*6/uL LAB HEMATOLOGY METHOD 09/23/2024 1:21 AM EDT [facility] HGB 11.4 11.2 - 15.7 g/dL LAB HEMATOLOGY METHOD 09/23/2024 1:21 AM EDT [facility] HCT 34.5 34.0 - 45.0 % LAB HEMATOLOGY METHOD 09/23/2024 1:21 AM EDT [facility] Platelet Count 444(H) 155 - 369 10*3/uL LAB HEMATOLOGY METHOD 09/23/2024 1:21 AM EDT [facility] MCV 87 79 - 98 fL LAB HEMATOLOGY METHOD 09/23/2024 1:21 AM EDT [facility] MCH 28.6 26.0 - 32.0 pg LAB HEMATOLOGY METHOD 09/23/2024 1:21 AM EDT [facility] MCHC 33.0 30.7 - 35.5 g/dL LAB HEMATOLOGY METHOD 09/23/2024 1:21 AM EDT [facility] RDW 15.3(H) 11.5 - 14.5 % LAB HEMATOLOGY METHOD 09/23/2024 1:21 AM EDT [facility] MPV 9.2 8.8 - 12.5 fL LAB HEMATOLOGY METHOD 09/23/2024 1:21 AM EDT [facility] nRBC 0.0 <=0.0 per 100 WBCs LAB HEMATOLOGY METHOD 09/23/2024 1:21 AM EDT [facility] Blood Venous blood specimen / Unknown Venipuncture / Unknown 09/23/2024 1:08 AM EDT 09/23/2024 1:11 AM EDT Marysol Mancini MD LAB BLOOD ORDERABLES Final Result Performing Organization Address City/[facility]/ZIP Co de Phone Number [facility] [address] [place] [address] * (ABNORMAL) Phosphorus, Plasma (09/23/2024 1:08 AM EDT) Phosphorus, Plasma 4.7(H) 2.5 - 4.5 mg/dL 09/23/2024 1:45 AM EDT [facility] Blood Venous blood specimen / Unknown Venipuncture / Unknown 09/23/2024 1:08 AM EDT 09/23/2024 1:12 AM EDT Marysol Mancini MD LAB BLOOD ORDERABLES Final Result Performing Organization Address City/[facility]/ZIP Co de Phone Number [facility] [address] [place] [address] * (ABNORMAL) POCT glucose meter (09/22/2024 9:43 [...] 09/22/2024 9:44 PM EDT [facility] [employer] ID Kelvin Yousif 09/22/2024 9:44 PM EDT [facility] Device ID [id number] 09/22/2024 9:44 PM EDT [facility] Specimen Type POC Capillary 09/22/2024 9:44 PM EDT [facility] Blood Capillary blood specimen / Unknown 09/22/2024 9:43 PM EDT 09/22/2024 9:44 PM EDT Betty Garcia MD LAB POINT OF CARE TEST DOCKED DEVICE UNSOLICITED RESULTS Final Result Performing Organization Address City/[facility] Co de Phone Number [facility] [address] [place] [address] * (ABNORMAL) POCT glucose meter (09/22/2024 1:56 [...] 09/22/2024 1:57 PM EDT [facility] [employer] Manager ID Geno Guillory 09/22/2024 1:57 PM EDT [facility] Device ID [id number] 09/22/2024 1:57 PM EDT [facility] Specimen Type POC Capillary 09/22/2024 1:57 PM EDT [facility] Blood Capillary blood specimen / Unknown 09/22/2024 1:56 PM EDT 09/22/2024 1:57 PM EDT us Betty Garcia MD LAB POINT OF CARE TEST DOCKED DEVICE UNSOLICITED RESULTS Final Result Performing Organization Address City/[facility]/ZIP Co de Phone Number [facility] [address] [place] [address] * (ABNORMAL) POCT glucose meter (09/22/2024 8:55 AM EDT) POCT Glucose 108(H) 74 - [...] for testing. Comment 09/22/2024 8:56 AM EDT [facility] G[employer] Manager ID Geno Guillory 09/22/2024 8:56 AM EDT [facility] Device ID [id number] 09/22/2024 8:56 AM EDT [facility] Specimen Type POC Capillary 09/22/2024 8:56 AM EDT [facility] Blood Capillary blood specimen / Unknown 09/22/2024 8:55 AM EDT 09/22/2024 8:56 AM EDT us Betty Garcia MD LAB POINT OF CARE TEST DOCKED DEVICE UNSOLICITED RESULTS Final Result Performing Organization Address City/State/[facility] Co de Phone Number [facility] [address] [place] [address] * POCT glucose meter (09/22/2024 3:52 AM EDT) Pathologist [facility] POCT Glucose 91 74 - 99 [...] 09/22/2024 3:54 AM EDT [facility] G[employer] Manager ID Brandie Mason 09/22/2024 3:54 AM EDT [facility] Device ID [id number] 09/22/2024 3:54 AM EDT [facility] Specimen Type POC Venous 09/22/2024 3:54 AM EDT [facility] Blood Venous blood specimen / Unknown 09/22/2024 3:52 AM EDT 09/22/2024 3:54 AM EDT Tere Snow MD LAB POINT OF CARE TEST DOCKED DEVICE UNSOLICITED RESULTS Final Result [facility] [address] [place] [address] * (ABNORMAL) Basic Metabolic Panel, Plasma (09/22/2024 3:51 AM EDT) Glucose, Plasma 90 74 - 99 mg/dL 09/22/2024 4:45 AM EDT [facility] BUN, Plasma <3(L) 7 - 21 mg/dL 09/22/2024 4:45 AM EDT [facility] Creatinine, Plasma 0.67 0.60 - 1.10 mg/dL 09/22/2024 4:45 AM EDT [facility] BUN/Creatinine Ratio 09/22/2024 4:45 AM EDT [facility] Comment:Unable to calculate, at least one value is above or below the detection limit. Sodium, Plasma 140 136 - 145 mmol/L 09/22/2024 4:45 AM EDT [facility] Potassium, Plasma 3.6 3.6 - 4.9 mmol/L 09/22/2024 4:45 AM EDT [facility] Chloride, Plasma 106 97 - 107 mmol/L 09/22/2024 4:45 AM EDT [facility] CO2, Plasma 25 22 - 29 mmol/L 09/22/2024 4:45 AM EDT [facility] Anion Gap 9 6 - 16 mmol/L 09/22/2024 4:45 AM EDT [facility] Total Calcium, Plasma 7.9(L) 8.9 - 10.2 mg/dL 09/22/2024 4:45 AM EDT [facility] eGFRcr 104.0 mL/min/1.7 3m*2 09/22/2024 4:45 AM EDT [facility] Comment:Reported eGFRcr in m L/min/1.73m2 is based the CKD-EPI 2020 equation that does not use a race coefficient. Blood Venous blood specimen / Unknown Venipuncture / Unknown 09/22/2024 3:51 AM EDT 09/22/2024 3:58 AM EDT us Tere Snow MD LAB BLOOD ORDERABLES Final Result Performing Organization Address [facility]/ZIP Co de Phone Number [facility] [address] [place] [address] * (ABNORMAL) Phosphorus, Plasma (09/22/2024 3:51 AM EDT) Phosphorus, Plasma 4.7(H) 2.5 - 4.5 mg/dL 09/22/2024 4:38 AM EDT [facility] Blood Venous blood specimen / Unknown Venipuncture / Unknown 09/22/2024 3:51 AM EDT 09/22/2024 3:58 AM EDT us Tere Snow MD LAB BLOOD ORDERABLES Final Result Performing Organization Address [facility] Co de Phone Number [facility] [address] [place] [address] * (ABNORMAL) Magnesium, Plasma (09/22/2024 3:51 AM EDT) Magnesium, Plasma 1.7(L) 1.9 - 2.4 mg/dL 09/22/2024 4:38 AM EDT [facility] Blood Venous blood specimen / Unknown Venipuncture / Unknown 09/22/2024 3:51 AM EDT 09/22/2024 3:58 AM EDT us Tere Snow MD LAB BLOOD ORDERABLES Final Result Performing Organization Address City/[facility] Co de Phone Number [facility] [address] [place] [address] * (ABNORMAL) CBC W/O Differential (09/22/2024 3:51 AM EDT) WBC Count 9.01 3.70 - 10.30 10*3/uL LAB HEMATOLOGY METHOD 09/22/2024 4:09 AM EDT [facility] RBC Count 3.71(L) 3.90 - 5.20 10*6/uL LAB HEMATOLOGY METHOD 09/22/2024 4:09 AM EDT [facility] HGB 10.4(L) 11.2 - 15.7 g/dL LAB HEMATOLOGY METHOD 09/22/2024 4:09 AM EDT [facility] HCT 32.6(L) 34.0 - 45.0 % LAB HEMATOLOGY METHOD 09/22/2024 4:09 AM EDT [facility] Platelet Count 447(H) 155 - 369 10*3/uL LAB HEMATOLOGY METHOD 09/22/2024 4:09 AM EDT [facility] MCV 88 79 - 98 fL LAB HEMATOLOGY METHOD 09/22/2024 4:09 AM EDT [facility] MCH 28.0 26.0 - 32.0 pg LAB HEMATOLOGY METHOD 09/22/2024 4:09 AM EDT [facility] MCHC 31.9 30.7 - 35.5 g/dL LAB HEMATOLOGY METHOD 09/22/2024 4:09 AM EDT [facility] RDW 15.1(H) 11.5 - 14.5 % LAB HEMATOLOGY METHOD 09/22/2024 4:09 AM EDT [facility] MPV 9.2 8.8 - 12.5 fL LAB HEMATOLOGY METHOD 09/22/2024 4:09 AM EDT [facility] nRBC 0.0 <=0.0 per 100 WBCs LAB HEMATOLOGY METHOD 09/22/2024 4:09 AM EDT [facility] Blood Venous blood specimen / Unknown Venipuncture / Unknown 09/22/2024 3:51 AM EDT 09/22/2024 4:00 AM EDT us Tere Snow MD LAB BLOOD ORDERABLES Final Result [facility] [address] [place] [address] * (ABNORMAL) POCT glucose meter (09/22/2024 12:17 AM EDT) POCT Glucose 149(H) 74 - 99 mg/dL 09/22/2024 12:19 AM EDT [facility] Comment:Accuracy of a [...] 09/22/2024 12:19 AM EDT [facility] [employer] Manager ID Mirtha Lewis 12:19 AM EDT [facility] Device ID [id number] 09/22/2024 12:19 AM EDT [facility] Specimen Type POC Capillary 09/22/2024 12:19 AM EDT [facility] Blood Capillary blood specimen / Unknown 09/22/2024 12:17 AM EDT 09/22/2024 12:19 AM EDT Tere Snow MD LAB POINT OF CARE TEST DOCKED DEVICE UNSOLICITED RESULTS Final Result [facility] [address] [place] [address] * POCT glucose meter (09/21/2024 11:43 PM EDT) [facility] POCT Glucose 89 74 - 99 mg/dL [...] 09/21/2024 11:45 PM EDT [facility] G[employer] Manager ID Brandie Mason 09/21/2024 11:45 PM EDT [facility] Device ID [id number] 09/21/2024 11:45 PM EDT [facility] Specimen Type POC Capillary 09/21/2024 11:45 PM EDT [facility] Blood Capillary blood specimen / Unknown 09/21/2024 11:43 PM EDT 09/21/2024 11:45 PM EDT Tere Snow MD LAB POINT OF CARE TEST DOCKED DEVICE UNSOLICITED RESULTS Final Result Performing Organization Address [facility] de Phone Number [facility] [address] [place] [address] * (ABNORMAL) POCT glucose meter (09/21/2024 9:35 PM EDT) Pathologist [facility] POCT Glucose 105(H) 74 - 99 [...] Comment 09/21/2024 9:37 PM EDT [facility] Grooming Sal[employer] Manager ID Brandie Mason 09/21/2024 9:37 PM EDT [facility] Device ID [id number] 09/21/2024 9:37 PM EDT [facility] Specimen Type POC Capillary 09/21/2024 9:37 PM EDT [facility] Blood Capillary blood specimen / Unknown 09/21/2024 9:35 PM EDT 09/21/2024 9:37 PM EDT Tere Snow MD LAB POINT OF CARE TEST DOCKED DEVICE UNSOLICITED RESULTS Final Result Performing Organization Address [facility] de Phone Number [facility] [address] [place] [address] * (ABNORMAL) POCT glucose meter (09/21/2024 5:37 PM EDT) Pathologist [facility] POCT Glucose 142(H) 74 - 99 mg/dL [...] Comment 09/21/2024 5:38 PM EDT [facility] Grooming Sal[employer] Manager ID Chip Reinoso 09/21/2024 5:38 PM EDT [facility] Device ID [id number] 09/21/2024 5:38 PM EDT [facility] Specimen Type POC Capillary 09/21/2024 5:38 PM EDT [facility] Blood Capillary blood specimen / Unknown 09/21/2024 5:37 PM EDT 09/21/2024 5:38 PM EDT us Tere Snow MD LAB POINT OF CARE TEST DOCKED DEVICE UNSOLICITED RESULTS Final Result Performing Organization Address City/[facility] Co de Phone Number [facility] [address] [place] [id number] * (ABNORMAL) POCT glucose meter (09/21/2024 12:36 [...] for testing. Comment 09/21/2024 12:38 PM EDT [facility] G[employer] Manager ID Светлана Cazares 12:38 PM EDT [facility] Device ID [id number] 09/21/2024 12:38 PM EDT [facility] Specimen Type POC Capillary 09/21/2024 12:38 PM EDT [facility] Blood Capillary blood specimen / Unknown 09/21/2024 12:36 PM EDT 09/21/2024 12:38 PM EDT us Tere Snow MD LAB POINT OF CARE TEST DOCKED DEVICE UNSOLICITED RESULTS Final Result Performing Organization Address City/[facility]/ZIP Co de Phone Number [facility] [address] [place] [address] * (ABNORMAL) POCT glucose meter (09/21/2024 9:51 AM EDT) [facility] POCT Glucose 117(H) 74 - 99 mg/dL 09/21/2024 9:53 AM EDT [facility] Comment:Accuracy of [...] Comment 09/21/2024 9:53 AM EDT [facility] G[employer]ing Sal[employer] Manager ID Светлана Cazares 9:53 AM EDT [facility] Device ID [id number] 09/21/2024 9:53 AM EDT [facility] Specimen Type POC Capillary 09/21/2024 9:53 AM EDT [facility] Blood Capillary blood specimen / Unknown 09/21/2024 9:51 AM EDT 09/21/2024 9:53 AM EDT Tere Snow MD LAB POINT OF CARE TEST DOCKED DEVICE UNSOLICITED RESULTS Final Result [facility] [address] [place] [address] * (ABNORMAL) POCT glucose meter (09/21/2024 4:53 AM EDT) [facility] POCT Glucose 147(H) 74 - 99 mg/dL [...] 09/21/2024 4:55 AM EDT [facility] G[employer] Sal[employer] Manager ID Brandie Mason 09/21/2024 4:55 AM EDT [facility] Device ID [id number] 09/21/2024 4:55 AM EDT [facility] Specimen Type POC Capillary 09/21/2024 4:55 AM EDT [facility] Blood Capillary blood specimen / Unknown 09/21/2024 4:53 AM EDT 09/21/2024 4:55 AM EDT us Tere Snow MD LAB POINT OF CARE TEST DOCKED DEVICE UNSOLICITED RESULTS Final Result Performing Organization Address City/[facility] Co de Phone Number [facility] [address] [place] [address] * POCT glucose meter (09/21/2024 4:19 AM [...] Comment 09/21/2024 4:22 AM EDT [facility] Grooming Sal[employer] Manager ID Brandie Mason 09/21/2024 4:22 AM EDT [facility] Device ID [id number] 09/21/2024 4:22 AM EDT [facility] Specimen Type POC Capillary 09/21/2024 4:22 AM EDT [facility] Blood Capillary blood specimen / Unknown 09/21/2024 4:19 AM EDT 09/21/2024 4:22 AM EDT us Tere Snow MD LAB POINT OF CARE TEST DOCKED DEVICE UNSOLICITED RESULTS Final Result Performing Organization Address City/[facility] Co de Phone Number [facility] [address] [place] [address] * (ABNORMAL) POCT glucose meter (09/21/2024 1:35 [...] Comment 09/21/2024 1:36 AM EDT [facility] Grooming Sal[employer] Manager ID Brandie Mason 09/21/2024 1:36 AM EDT [facility] Device ID [id number] 09/21/2024 1:36 AM EDT [facility] Specimen Type POC Capillary 09/21/2024 1:36 AM EDT [facility] Blood Capillary blood specimen / Unknown 09/21/2024 1:35 AM EDT 09/21/2024 1:36 AM EDT Tere Snow MD LAB POINT OF CARE TEST DOCKED DEVICE UNSOLICITED RESULTS Final Result Performing Organization Address City/State/[facility] Co de Phone Number [facility] [address] [place] [address] * (ABNORMAL) POCT glucose meter (09/20/2024 10:51 PM EDT) [facility] POCT Glucose 144(H) 74 - 99 mg/dL [...] for testing. Comment 09/20/2024 10:53 PM EDT [facility] G[employer]ing Sal[employer] Manager ID Brandie Mason 09/20/2024 10:53 PM EDT [facility] Device ID [id number] 09/20/2024 10:53 PM EDT [facility] Specimen Type POC Capillary 09/20/2024 10:53 PM EDT [facility] Blood Capillary blood specimen / Unknown 09/20/2024 10:51 PM EDT 09/20/2024 10:53 PM EDT Tere Snow MD LAB POINT OF CARE TEST DOCKED DEVICE UNSOLICITED RESULTS Final Result Performing Organization Address City/[facility] Co de Phone Number [facility] [address] [place] [address] * POCT glucose meter (09/20/2024 10:13 PM EDT) POCT Glucose 78 74 - 99 mg/dL 09/20/2024 10:16 PM EDT [facility] Comment:Accuracy of a [...] for testing. Comment 09/20/2024 10:16 PM EDT [email or web address] G[employer] Manager ID Brandie Mason 09/20/2024 10:16 PM EDT [email or web address] Device ID [id number] 09/20/2024 10:16 PM EDT [facility] Specimen Type POC Capillary 09/20/2024 10:16 PM EDT [facility] Blood Capillary blood specimen / Unknown 09/20/2024 10:13 PM EDT 09/20/2024 10:16 PM EDT Tere Snow MD LAB POINT OF CARE TEST DOCKED DEVICE UNSOLICITED RESULTS Final Result Performing Organization Address City/[facility] Co de Phone Number [facility] [address] [place] [address] * POCT glucose meter (09/20/2024 3:01 PM EDT) POCT Glucose 97 74 - [...] for testing. Comment 09/20/2024 3:03 PM EDT [facility] Grooming Sal[employer] Manager ID Vee Patel 09/20/2024 3:03 PM EDT [facility] Device ID [id number] 09/20/2024 3:03 PM EDT [facility] Specimen Type POC Capillary 09/20/2024 3:03 PM EDT [facility] Blood Capillary blood specimen / Unknown 09/20/2024 3:01 PM EDT 09/20/2024 3:03 PM EDT Tere Snow MD LAB POINT OF CARE TEST DOCKED DEVICE UNSOLICITED RESULTS Final Result Performing Organization Address [facility] Co de Phone Number [facility] [address] [place] [address] * Multi Drug Resistance Test (09/20/2024 11:00 AM EDT) Culture No growth at day 1 09/21/2024 12:22 PM EDT [facility] Swab (Nares and Jacey Rectal) Non-blood Collection / Unknown 09/20/2024 11:00 AM EDT 09/20/2024 11:14 AM EDT Narrative [facility] - 09/21/2024 12:22 PM EDT This test was developed and its performance characteristics determined by the [facility]. Although the media is FDA-approved, it is not FDA-approved for all specimen types submitted. The FDA has determined that such clearance or approval is not necessary. This test is used for surveillance purposes. It should not be regarded as investigational or for research. The [facility] is certified under the Clinical Laboratory Improvement Amendments of 1988 (CLIA-88) as qualified to perform high complexity clinical laboratory testing. us Tere Snow MD LAB MICROBIOLOGY - GENERAL ORDERABLES Final Result Performing Organization Address City/[facility]/ZIP Co de Phone Number [facility] [address] [place] [address] * Multi Drug Resistance Test (09/20/2024 11:00 AM EDT) Culture No growth at day 1 09/21/2024 12:22 PM EDT [facility] Swab (Nares and Jacey Rectal) Non-blood Collection / Unknown 09/20/2024 11:00 AM EDT 09/20/2024 11:17 AM EDT Narrative [facility] - 09/21/2024 12:22 PM EDT This test was developed and its performance characteristics determined by the [facility]. Although the media is FDA-approved, it is not FDA-approved for all specimen types submitted. The FDA has determined that such clearance or approval is not necessary. This test is used for surveillance purposes. It should not be regarded as investigational or for research. The [facility] is certified under the Clinical Laboratory Improvement Amendments of 1988 (CLIA-88) as qualified to perform high complexity clinical laboratory testing. us Tere Snow MD LAB MICROBIOLOGY - GENERAL ORDERABLES Final Result [facility] [address] [place] [address] * (ABNORMAL) POCT glucose meter (09/20/2024 10:59 [...] for testing. Comment 09/20/2024 11:00 AM EDT [facility] G[employer]ing [employer] Manager ID Marysol Lopez 11:00 AM EDT [facility] Device ID [id number] 09/20/2024 11:00 AM EDT [facility] Specimen Type POC Capillary 09/20/2024 11:00 AM EDT [facility] Blood Capillary blood specimen / Unknown 09/20/2024 10:59 AM EDT 09/20/2024 11:00 AM EDT us Tere Snow MD LAB POINT OF CARE TEST DOCKED DEVICE UNSOLICITED RESULTS Final Result [facility] [address] [place] [address] * (ABNORMAL) POCT glucose meter (09/20/2024 10:32 AM EDT) POCT Glucose 64(L) 74 - 99 mg/dL 09/20/2024 10:33 AM EDT [facility] Comment:Accuracy of a glucos e [...] for testing. Comment 09/20/2024 10:33 AM EDT [facility] Grooming Sal[employer] Manager ID Marysol Lopez 10:33 AM EDT [facility] Device ID [id number] 09/20/2024 10:33 AM EDT [facility] Specimen Type POC Capillary 09/20/2024 10:33 AM EDT [facility] Blood Capillary blood specimen / Unknown 09/20/2024 10:32 AM EDT 09/20/2024 10:33 AM EDT Result [facility] us Tere Snow MD LAB POINT OF CARE TEST DOCKED DEVICE UNSOLICITED RESULTS Final Result [facility] [address] [place] [address] * Potassium level repeated 2 hours after the total replacement is complete (09/20/2024 9:54 AM EDT) Potassium, Plasma 4.7 3.6 - 4.9 mmol/L 09/20/2024 10:43 AM EDT [facility] Comment:Hemolyzed, result ma y be falsely increased. Blood Venous blood specimen / Unknown Venipuncture / Unknown 09/20/2024 9:54 AM EDT 09/20/2024 9:59 AM EDT us Tere Snow MD LAB BLOOD ORDERABLES Final Result [facility] [address] [place] [address] * (ABNORMAL) POCT glucose meter (09/20/2024 9:52 AM EDT) [facility] POCT Glucose 67(L) 74 - 99 mg/dL [...] Comment 09/20/2024 9:56 AM EDT [facility] G[employer]ing Sal[employer] Manager ID Marysol Lopez 9:56 AM EDT [facility] Device ID [id number] 09/20/2024 9:56 AM EDT [facility] Specimen Type POC Venous 09/20/2024 9:56 AM EDT [facility] Blood Venous blood specimen / Unknown 09/20/2024 9:52 AM EDT 09/20/2024 9:56 AM EDT Tere Snow MD LAB POINT OF CARE TEST DOCKED DEVICE UNSOLICITED RESULTS Final Result Performing Organization Address [facility] Co de Phone Number [facility] [address] [place] [address] * POCT glucose meter (09/20/2024 7:57 AM EDT) [facility] POCT Glucose 96 74 - 99 mg/dL [...] 09/20/2024 7:59 AM EDT [facility] G[employer] Manager ID Vee Patel 09/20/2024 7:59 AM EDT [facility] Device ID [id number] 09/20/2024 7:59 AM EDT [facility] Specimen Type POC Capillary 09/20/2024 7:59 AM EDT [facility] Blood Capillary blood specimen / Unknown 09/20/2024 7:57 AM EDT 09/20/2024 7:59 AM EDT Tere Snow MD LAB POINT OF CARE TEST DOCKED DEVICE UNSOLICITED RESULTS Final Result Performing Organization Address City/[facility]/ZIP Co de Phone Number [facility] [address] [place] [address] * (ABNORMAL) POCT glucose meter (09/20/2024 6:56 AM EDT) Pathologist [facility] POCT Glucose 132(H) 74 - 99 [...] Comment 09/20/2024 6:58 AM EDT [facility] Grooming Sal[employer] Manager ID Kelvin Yousif 09/20/2024 6:58 AM EDT [facility] Device ID [id number] 09/20/2024 6:58 AM EDT [facility] Specimen Type POC Capillary 09/20/2024 6:58 AM EDT [facility] Blood Capillary blood specimen / Unknown 09/20/2024 6:56 AM EDT 09/20/2024 6:58 AM EDT Tere Snow MD LAB POINT OF CARE TEST DOCKED DEVICE UNSOLICITED RESULTS Final Result Performing Organization Address City/[facility]/ZIP Co de Phone Number HEALTHCARE LAB [address] [place] [address] * POCT glucose meter (09/20/2024 6:28 AM EDT) POCT Glucose 81 74 - [...] Comment 09/20/2024 6:30 AM EDT [facility]ALTH[facility] Grooming Salon Manager ID Kelvin Yousif 09/20/2024 6:30 AM EDT [facility] Device ID [id number] 09/20/2024 6:30 AM EDT [facility]ALTH[facility]ARE [facility] Specimen Type POC Capillary 09/20/2024 6:30 AM EDT [facility] Blood Capillary blood specimen / Unknown 09/20/2024 6:28 AM EDT 09/20/2024 6:30 AM EDT Tere Snow MD LAB POINT OF CARE TEST DOCKED DEVICE UNSOLICITED RESULTS Final Result Performing Organization Address City/[facility]/ZIP Co de Phone Number [facility] [address] [place] [address] * (ABNORMAL) Albumin (09/20/2024 1:33 AM EDT) [facility] Albumin, Plasma 2.6(L) 3.5 - 5.2 g/dL 09/20/2024 7:05 AM EDT [facility] Blood Venous blood specimen / Unknown Venipuncture / Unknown 09/20/2024 1:33 AM EDT 09/20/2024 2:37 AM EDT Tere Snow MD LAB BLOOD ORDERABLES Final Result [facility] [address] [place] [address] * Simi auris Surveillance by PCR (09/20/2024 1:33 AM EDT) [facility] Simi auris PCR Result Not Detected Not Detected 09/20/2024 12:58 PM EDT [facility] Swab (Axilla and Groin) Non-blood Collection / Unknown 09/20/2024 1:33 AM EDT 09/20/2024 3:41 AM EDT Narrative [facility] - 09/20/2024 12:58 PM EDT This PCR assay was developed and its performance characteristics determined by [facility] as appropriate for clinical purposes. This assay has not been cleared or approved by the FDA, but is performed in a CLIA regulated laboratory that is qualified to perform high-complexity testing. Tere Snow MD LAB MICROBIOLOGY - GENERAL ORDERABLES Final Result [facility] [address] [place] [address] * Phosphorus, Plasma (09/20/2024 1:33 AM EDT) Phosphorus, Plasma 4.1 2.5 - 4.5 mg/dL 09/20/2024 3:12 AM EDT [facility] Blood Venous blood specimen / Unknown Venipuncture / Unknown 09/20/2024 1:33 AM EDT 09/20/2024 2:37 AM EDT Tere Snow MD LAB BLOOD ORDERABLES Final Result Performing Organization Address City/[facility]/[place] [address] * Magnesium, Plasma (09/20/2024 1:33 AM EDT) Magnesium, Plasma 1.9 1.9 - 2.4 mg/dL 09/20/2024 3:12 AM EDT [facility] Blood Venous blood specimen / Unknown Venipuncture / Unknown 09/20/2024 1:33 AM EDT 09/20/2024 2:37 AM EDT Tere Snow MD LAB BLOOD ORDERABLES Final Result [facility] [address] [place] [address] * (ABNORMAL) CBC W/O Differential (09/20/2024 1:33 AM EDT) WBC Count 10.06 3.70 - 10.30 10*3/uL LAB HEMATOLOGY METHOD 09/20/2024 2:49 AM EDT [facility] RBC Count 3.40(L) 3.90 - 5.20 10*6/uL LAB HEMATOLOGY METHOD 09/20/2024 2:49 AM EDT [facility] HGB 9.6(L) 11.2 - 15.7 g/dL LAB HEMATOLOGY METHOD 09/20/2024 2:49 AM EDT [facility] HCT 29.4(L) 34.0 - 45.0 % LAB HEMATOLOGY METHOD 09/20/2024 2:49 AM EDT [facility] Platelet Count 413(H) 155 - 369 10*3/uL LAB HEMATOLOGY METHOD 09/20/2024 2:49 AM EDT [facility] MCV 87 79 - 98 fL LAB HEMATOLOGY METHOD 09/20/2024 2:49 AM EDT [facility] MCH 28.2 26.0 - 32.0 pg LAB HEMATOLOGY METHOD 09/20/2024 2:49 AM EDT [facility] MCHC 32.7 30.7 - 35.5 g/dL LAB HEMATOLOGY METHOD 09/20/2024 2:49 AM EDT [facility] RDW 15.1(H) 11.5 - 14.5 % LAB HEMATOLOGY METHOD 09/20/2024 2:49 AM EDT [facility] MPV 9.4 8.8 - 12.5 fL LAB HEMATOLOGY METHOD 09/20/2024 2:49 AM EDT [facility] nRBC 0.0 <=0.0 per 100 WBCs LAB HEMATOLOGY METHOD 09/20/2024 2:49 AM EDT [facility] Blood Venous blood specimen / Unknown Venipuncture / Unknown 09/20/2024 1:33 AM EDT 09/20/2024 2:37 AM EDT us Tere Snow MD LAB BLOOD ORDERABLES Final Result [facility] [address] [place] [address] * (ABNORMAL) Basic Metabolic Panel, Plasma (09/20/2024 1:33 AM EDT) Glucose, Plasma 93 74 - 99 mg/dL 09/20/2024 3:12 AM EDT [facility] BUN, Plasma <3(L) 7 - 21 mg/dL 09/20/2024 3:12 AM EDT [facility] Creatinine, Plasma 0.64 0.60 - 1.10 mg/dL 09/20/2024 3:12 AM EDT [facility] BUN/Creatinine Ratio 09/20/2024 3:12 AM EDT [facility] Comment:Unable to calculate, at least one value is above or below the detection limit. Sodium, Plasma 139 136 - 145 mmol/L 09/20/2024 3:12 AM EDT [facility] Potassium, Plasma 3.3(L) 3.6 - 4.9 mmol/L 09/20/2024 3:12 AM EDT [facility] Chloride, Plasma 105 97 - 107 mmol/L 09/20/2024 3:12 AM EDT [facility] CO2, Plasma 26 22 - 29 mmol/L 09/20/2024 3:12 AM EDT [facility] Anion Gap 8 6 - 16 mmol/L 09/20/2024 3:12 AM EDT [facility] Total Calcium, Plasma 7.8(L) 8.9 - 10.2 mg/dL 09/20/2024 3:12 AM EDT [facility] eGFRcr 105.2 mL/min/1.7 3m*2 09/20/2024 3:12 AM EDT [facility] Comment:Reported eGFRcr in m L/min/1.73m2 is based the CKD-EPI 2020 equation that does not use a race coefficient. Blood Venous blood specimen / Unknown Venipuncture / Unknown 09/20/2024 1:33 AM EDT 09/20/2024 2:37 AM EDT Tere Snow MD LAB BLOOD ORDERABLES Final Result [facility] [address] [place] [address] * POCT glucose meter (09/19/2024 11:05 PM EDT) Pathologist [facility] POCT Glucose 98 74 - 99 mg/dL [...] Comment 09/19/2024 11:06 PM EDT [facility] Grooming Salon Manager ID Kelvin Yousif 09/19/2024 11:06 PM EDT [facility] LAB Device ID [id number] 09/19/2024 11:06 PM EDT [facility] Specimen Type POC Capillary 09/19/2024 11:06 PM EDT [facility] Blood Capillary blood specimen / Unknown 09/19/2024 11:05 PM EDT 09/19/2024 11:06 PM EDT Tere Snow MD LAB POINT OF CARE TEST DOCKED DEVICE UNSOLICITED RESULTS Final Result [facility] [address] [place] [address] * Urine Francis Panel (09/19/2024 8:30 PM EDT) [facility] Extra Reflex urine culture not indicated 09/20/2024 5:01 AM EDT [facility] Comment: Previously prelim verified as [...] URINE ORDERABLES Final Result Performing Organization Address City/[facility]/ZIP Co de Phone Number [facility] [address] [place] [address] * (ABNORMAL) POCT glucose meter (09/19/2024 6:10 AM EDT) POCT Glucose 138(H) 74 - 99 mg/dL 09/19/2024 6:11 AM EDT [facility] Comment:Accuracy [...] Comment 09/19/2024 6:11 AM EDT [facility] Grooming Salon Manager ID Sarah Johnson 09/19/2024 6:11 AM EDT [facility]ALTH[facility] Device ID [id number] 09/19/2024 6:11 AM EDT [facility] Specimen Type POC Capillary 09/19/2024 6:11 AM EDT [facility] Blood Capillary blood specimen / Unknown 09/19/2024 6:10 AM EDT 09/19/2024 6:11 AM EDT us Tere Snow MD LAB POINT OF CARE TEST DOCKED DEVICE UNSOLICITED RESULTS Final Result Performing Organization Address City/[facility]/ZIP Co de Phone Number [facility] [address] [place] [address] * (ABNORMAL) POCT glucose meter (09/19/2024 5:27 [...] for testing. Comment 09/19/2024 5:29 AM EDT [facility] Grooming Salon Manager ID Sarah Johnson 09/19/2024 5:29 AM EDT [facility]ALTHCARE LAB Device ID [id number] 09/19/2024 5:29 AM EDT [facility] Specimen Type POC Capillary 09/19/2024 5:29 AM EDT [facility] Blood Capillary blood specimen / Unknown 09/19/2024 5:27 AM EDT 09/19/2024 5:29 AM EDT Tere Snow MD LAB POINT OF CARE TEST DOCKED DEVICE UNSOLICITED RESULTS Final Result Performing Organization Address City/State/[facility] Co de Phone Number [facility] [address] [place] [address] * (ABNORMAL) POCT glucose meter (09/19/2024 2:31 AM EDT) [facility] POCT Glucose 103(H) 74 - 99 mg/dL [...] for testing. Comment 09/19/2024 2:33 AM EDT [facility] Grooming Salon Manager ID Sarah Johnson 09/19/2024 2:33 AM EDT [facility]ALTH[facility]ARE LAB Device ID [id number] 09/19/2024 2:33 AM EDT [facility] Specimen Type POC Capillary 09/19/2024 2:33 AM EDT [facility] Blood Capillary blood specimen / Unknown 09/19/2024 2:31 AM EDT 09/19/2024 2:33 AM EDT us Tere Snow MD LAB POINT OF CARE TEST DOCKED DEVICE UNSOLICITED RESULTS Final Result [facility] [address] [place] [address] * (ABNORMAL) Basic Metabolic Panel, Plasma (09/19/2024 12:38 AM EDT) Glucose, Plasma 59(L) 74 - 99 mg/dL 09/19/2024 1:30 AM EDT [facility] BUN, Plasma 4(L) 7 - 21 mg/dL 09/19/2024 1:30 AM EDT [facility] Creatinine, Plasma 0.74 0.60 - 1.10 mg/dL 09/19/2024 1:30 AM EDT [facility] BUN/Creatinine Ratio 5 09/19/2024 1:30 AM EDT [facility] Sodium, Plasma 142 136 - 145 mmol/L 09/19/2024 1:30 AM EDT [facility] Potassium, Plasma 3.7 3.6 - 4.9 mmol/L 09/19/2024 1:30 AM EDT [facility] Chloride, Plasma 108(H) 97 - 107 mmol/L 09/19/2024 1:30 AM EDT [facility] CO2, Plasma 26 22 - 29 mmol/L 09/19/2024 1:30 AM EDT [facility] Anion Gap 8 6 - 16 mmol/L 09/19/2024 1:30 AM EDT [facility] Total Calcium, Plasma 7.9(L) 8.9 - 10.2 mg/dL 09/19/2024 1:30 AM EDT [facility] eGFRcr 96.3 mL/min/1.7 3m*2 09/19/2024 1:30 AM EDT [facility] Comment:Reported eGFRcr in m L/min/1.73m2 is based the CKD-EPI 2020 equation that does not use a race coefficient. Blood Venous blood specimen / Unknown Venipuncture / Unknown 09/19/2024 12:38 AM EDT 09/19/2024 12:45 AM EDT Tere Snow MD LAB BLOOD ORDERABLES Final Result [facility] [address] [place] [address] * (ABNORMAL) Magnesium, Plasma (09/19/2024 12:38 AM EDT) Pathologist [facility] Magnesium, Plasma 1.8(L) 1.9 - 2.4 mg/dL 09/19/2024 1:30 AM EDT [facility] Blood Venous blood specimen / Unknown Venipuncture / Unknown 09/19/2024 12:38 AM EDT 09/19/2024 12:45 AM EDT Tere Snow MD LAB BLOOD ORDERABLES Final Result Performing Organization Address [facility] Co de Phone Number [facility] [address] [place] [address] * (ABNORMAL) CBC W/O Differential (09/19/2024 12:38 AM EDT) Pathologist [facility] WBC Count 7.40 3.70 - 10.30 10*3/uL LAB HEMATOLOGY METHOD 09/19/2024 1:02 AM EDT [facility] RBC Count 3.59(L) 3.90 - 5.20 10*6/uL LAB HEMATOLOGY METHOD 09/19/2024 1:02 AM EDT [facility] HGB 10.1(L) 11.2 - 15.7 g/dL LAB HEMATOLOGY METHOD 09/19/2024 1:02 AM EDT [facility] HCT 31.8(L) 34.0 - 45.0 % LAB HEMATOLOGY METHOD 09/19/2024 1:02 AM EDT [facility] Platelet Count 403(H) 155 - 369 10*3/uL LAB HEMATOLOGY METHOD 09/19/2024 1:02 AM EDT [facility] MCV 89 79 - 98 fL LAB HEMATOLOGY METHOD 09/19/2024 1:02 AM EDT [facility] MCH 28.1 26.0 - 32.0 pg LAB HEMATOLOGY METHOD 09/19/2024 1:02 AM EDT [facility] MCHC 31.8 30.7 - 35.5 g/dL LAB HEMATOLOGY METHOD 09/19/2024 1:02 AM EDT [facility] RDW 14.7(H) 11.5 - 14.5 % LAB HEMATOLOGY METHOD 09/19/2024 1:02 AM EDT [facility] MPV 9.2 8.8 - 12.5 fL LAB HEMATOLOGY METHOD 09/19/2024 1:02 AM EDT [facility] nRBC 0.0 <=0.0 per 100 WBCs LAB HEMATOLOGY METHOD 09/19/2024 1:02 AM EDT [facility] Blood Venous blood specimen / Unknown Venipuncture / Unknown 09/19/2024 12:38 AM EDT 09/19/2024 12:52 AM EDT us Tere Snow MD LAB BLOOD ORDERABLES Final Result Performing Organization Address [facility]/ZIP Co de Phone Number [facility] [address] [place] [address] * (ABNORMAL) Phosphorus, Plasma (09/19/2024 12:38 AM EDT) Phosphorus, Plasma 5.5(H) 2.5 - 4.5 mg/dL 09/19/2024 1:30 AM EDT [facility] Blood Venous blood specimen / Unknown Venipuncture / Unknown 09/19/2024 12:38 AM EDT 09/19/2024 12:45 AM EDT us Tere Snow MD LAB BLOOD ORDERABLES Final Result [facility] [address] [place] [address] * PERIPHERAL IV ([employer] LINK) (09/18/2024 6:33 PM EDT) Narrative Critsel Encinas RN - 09/18/2024 6:33 PM EDT Cristel Encinas RN 09/18/2024 6:38 PM Insert peripheral IV Performed by: Cristel Encinas, RN Authorized by: Tere Snow MD [place] Protocol: Verbal consent obtained?: Yes Risks and [...] 6:11 PM EDT 09/18/2024 6:32 PM EDT us Betty Garcia MD LAB BLOOD BANK TEST ORDERA BLES Final Result BLOOD BANK [address] [place] [address], * (ABNORMAL) Comprehensive metabolic panel (09/18/2024 6:06 PM EDT) Glucose, Plasma 90 74 - 99 mg/dL 09/18/2024 10:34 PM EDT [facility] BUN, Plasma 5(L) 7 - 21 mg/dL 09/18/2024 10:34 PM EDT [facility] Creatinine, Plasma 0.73 0.60 - 1.10 mg/dL 09/18/2024 10:34 PM EDT [facility] BUN/Creatinine Ratio 7 09/18/2024 10:34 PM EDT [facility] Sodium, Plasma 140 136 - 145 mmol/L 09/18/2024 10:34 PM EDT [facility] Potassium, Plasma 3.6 3.6 - 4.9 mmol/L 09/18/2024 10:34 PM EDT [facility] Chloride, Plasma 105 97 - 107 mmol/L 09/18/2024 10:34 PM EDT [facility] CO2, Plasma 25 22 - 29 mmol/L 09/18/2024 10:34 PM EDT [facility] Anion Gap 10 6 - 16 mmol/L 09/18/2024 10:34 PM EDT [facility] Total Calcium, Plasma 8.0(L) 8.9 - 10.2 mg/dL 09/18/2024 10:34 PM EDT [facility] Total Protein 5.0(L) 6.3 - 7.9 g/dL 09/18/2024 10:34 PM EDT [facility] Albumin, Plasma 2.6(L) 3.5 - 5.2 g/dL 09/18/2024 10:34 PM EDT [facility] AST, Plasma 146(H) 10 - 35 U/L 09/18/2024 10:34 PM EDT [facility] ALT, Plasma 86(H) 10 - 35 U/L 09/18/2024 10:34 PM EDT [facility] Alkaline Phosphatase, Plasma 188(H) 35 - 104 U/L 09/18/2024 10:34 PM EDT [facility] Total Bilirubin, Plasma 0.2 0.2 - 1.1 mg/dL 09/18/2024 10:34 PM EDT [facility] eGFRcr 97.9 mL/min/1.7 3m*2 09/18/2024 10:34 PM EDT [facility] Comment:Reported eGFRcr in m L/min/1.73m2 is based the CKD-EPI 2020 equation that does not use a race coefficient. Blood Venous blood specimen / Unknown Venipuncture / Unknown 09/18/2024 6:06 PM EDT 09/18/2024 7:08 PM EDT Betty Garcia MD LAB BLOOD ORDERABLES Final Result [facility] [address] [place] [address] * (ABNORMAL) Phosphorus (09/18/2024 6:05 PM EDT) Phosphorus, Plasma 5.3(H) 2.5 - 4.5 mg/dL 09/18/2024 8:08 PM EDT [facility] Blood Venous blood specimen / Unknown Venipuncture / Unknown 09/18/2024 6:05 PM EDT 09/18/2024 7:08 PM EDT Tere Snow MD LAB BLOOD ORDERABLES Final Result Performing Organization Address [facility]/ZIP Co de Phone Number [facility] [address] [place] [address] * (ABNORMAL) Magnesium (09/18/2024 6:05 PM EDT) Magnesium, Plasma 1.6(L) 1.9 - 2.4 mg/dL 09/18/2024 8:08 PM EDT [facility] Blood Venous blood specimen / Unknown Venipuncture / Unknown 09/18/2024 6:05 PM EDT 09/18/2024 7:08 PM EDT Tere Snow MD LAB BLOOD ORDERABLES Final Result [facility] [address] [place] [address] * (ABNORMAL) Basic metabolic panel (09/18/2024 6:05 PM EDT) Glucose, Plasma 89 74 - 99 mg/dL 09/18/2024 8:08 PM EDT [facility] BUN, Plasma 5(L) 7 - 21 mg/dL 09/18/2024 8:08 PM EDT [facility] Creatinine, Plasma 0.72 0.60 - 1.10 mg/dL 09/18/2024 8:08 PM EDT [facility] BUN/Creatinine Ratio 7 09/18/2024 8:08 PM EDT [facility] Sodium, Plasma 139 136 - 145 mmol/L 09/18/2024 8:08 PM EDT [facility] Potassium, Plasma 3.5(L) 3.6 - 4.9 mmol/L 09/18/2024 8:08 PM EDT [facility] Chloride, Plasma 104 97 - 107 mmol/L 09/18/2024 8:08 PM EDT [facility] CO2, Plasma 26 22 - 29 mmol/L 09/18/2024 8:08 PM EDT [facility] Anion Gap 9 6 - 16 mmol/L 09/18/2024 8:08 PM EDT [facility] Total Calcium, Plasma 8.1(L) 8.9 - 10.2 mg/dL 09/18/2024 8:08 PM EDT [facility] eGFRcr 99.5 mL/min/1.7 3m*2 09/18/2024 8:08 PM EDT [facility] Comment:Reported eGFRcr in m L/min/1.73m2 is based the CKD-EPI 2020 equation that does not use a race coefficient. Blood Venous blood specimen / Unknown Venipuncture / Unknown 09/18/2024 6:05 PM EDT 09/18/2024 7:08 PM EDT us Tere Snow MD LAB BLOOD ORDERABLES Final Result [facility] [address] [place] [address] * Lactate, venous (09/18/2024 11:16 AM EDT) Lactate, Venous, Whole Blood 1.0 0.5 - 2.2 mmol/L LAB HEMATOLOGY METHOD 09/18/2024 11:30 AM EDT [facility] Blood Venous blood specimen / Unknown Venipuncture / Unknown 09/18/2024 11:16 AM EDT 09/18/2024 11:27 AM EDT us Tere Snow MD LAB BLOOD ORDERABLES Final Result [facility] [address] [place] [address] * (ABNORMAL) CBC and differential (09/18/2024 11:16 AM EDT) WBC Count 6.49 3.70 - 10.30 10*3/uL LAB HEMATOLOGY METHOD 09/18/2024 12:38 PM EDT [facility] RBC Count 3.47(L) 3.90 - 5.20 10*6/uL LAB HEMATOLOGY METHOD 09/18/2024 12:38 PM EDT [facility] HGB 9.8(L) 11.2 - 15.7 g/dL LAB HEMATOLOGY METHOD 09/18/2024 12:38 PM EDT [facility] HCT 30.8(L) 34.0 - 45.0 % LAB HEMATOLOGY METHOD 09/18/2024 12:38 PM EDT [facility] Platelet Count 451(H) 155 - 369 10*3/uL LAB HEMATOLOGY METHOD 09/18/2024 12:38 PM EDT [facility] MCV 89 79 - 98 fL LAB HEMATOLOGY METHOD 09/18/2024 12:38 PM EDT [facility] MCH 28.2 26.0 - 32.0 pg LAB HEMATOLOGY METHOD 09/18/2024 12:38 PM EDT [facility] MCHC 31.8 30.7 - 35.5 g/dL LAB HEMATOLOGY METHOD 09/18/2024 12:38 PM EDT [facility] RDW 14.9(H) 11.5 - 14.5 % LAB HEMATOLOGY METHOD 09/18/2024 12:38 PM EDT [facility] MPV 9.6 8.8 - 12.5 fL LAB HEMATOLOGY METHOD 09/18/2024 12:38 PM EDT [facility] nRBC 0.0 <=0.0 per 100 WBCs LAB HEMATOLOGY METHOD 09/18/2024 12:38 PM EDT [facility] Differential Type Automated LAB HEMATOLOGY METHOD 09/18/2024 12:38 PM EDT [facility] Neutrophils % 45 % LAB HEMATOLOGY METHOD 09/18/2024 12:38 PM EDT [facility] Lymphocytes % 41 % LAB HEMATOLOGY METHOD 09/18/2024 12:38 PM EDT [facility] Monocytes % 9 % LAB HEMATOLOGY METHOD 09/18/2024 12:38 PM EDT [facility] Eosinophils % 4 % LAB HEMATOLOGY METHOD 09/18/2024 12:38 PM EDT [facility] Basophils % 1 % LAB HEMATOLOGY METHOD 09/18/2024 12:38 PM EDT [facility] Immature Granulocytes % 0 % LAB HEMATOLOGY METHOD 09/18/2024 12:38 PM EDT [facility] Neutrophils Absolute 2.85 1.60 - 6.10 10*3/uL LAB HEMATOLOGY METHOD 09/18/2024 12:38 PM EDT [facility] Lymphocytes Absolute 2.67 1.20 - 3.90 10*3/uL LAB HEMATOLOGY METHOD 09/18/2024 12:38 PM EDT [facility] Monocytes Absolute 0.61 0.30 - 0.90 10*3/uL LAB HEMATOLOGY METHOD 09/18/2024 12:38 PM EDT [facility] Eosinophils Absolute 0.26 0.00 - 0.50 10*3/uL LAB HEMATOLOGY METHOD 09/18/2024 12:38 PM EDT [facility] Basophils Absolute 0.08 0.00 - 0.10 10*3/uL LAB HEMATOLOGY METHOD 09/18/2024 12:38 PM EDT [facility] Immature Granulocytes Absolute 0.02 0.00 - 0.06 10*3/uL LAB HEMATOLOGY METHOD 09/18/2024 12:38 PM EDT [facility] Blood Venous blood specimen / Unknown Venipuncture / Unknown 09/18/2024 11:16 AM EDT 09/18/2024 12:01 PM EDT [facility] - 09/18/2024 12:38 PM EDT Therapeutic decision making should be based on absolute values, rather than percentages. Betty Garcia MD LAB BLOOD ORDERABLES Final Result Performing Organization Address City/[facility]/ZIP Co de Phone Number [facility] [address] [place] [address] * ECG Adult (09/18/2024 9:16 AM EDT) EKG DIAGNOSIS CLASS Abnormal MUSE ECG Ventricular Rate 78 BPM MUSE ECG Atrial Rate 78 BPM MUSE ECG OR Interval 138 ms MUSE ECG QRSD Interval 96 ms MUSE ECG QT Interval 446 ms MUSE ECG QTC Interval 508 ms MUSE ECG P [place] 79 degrees MUSE ECG R [place] 59 degrees MUSE ECG T Wave [place] 68 degrees MUSE ECG Diagnosis Normal sinus rhythm MUSE ECG Diagnosis Incomplete right bundle branch block MUSE ECG Diagnosis T wave abnormality, consider anterior ischemia MUSE ECG Diagnosis Prolonged QT MUSE ECG Diagnosis Abnormal ECG MUSE ECG Diagnosis MUSE ECG Diagnosis Confirmed by Marlena Zhou ([id number]) on 09/18/2024 2:31:20 PM MUSE ECG 09/18/2024 9:16 AM EDT 09/18/2024 2:31 PM EDT Betty Garcia MD ECG ORDERABLES Final Resu lt Performing Organization Address [facility] Co de Phone Number M[facility] ECG * (ABNORMAL) Magnesium (09/18/2024 2:19 AM EDT) Magnesium, Plasma 1.7(L) 1.9 - 2.4 mg/dL 09/18/2024 3:02 AM EDT [facility] Blood Venous blood specimen / Unknown Venipuncture / Unknown 09/18/2024 2:19 AM EDT 09/18/2024 2:36 AM EDT Betty Garcia MD LAB BLOOD ORDERABLES Final Result Performing Organization Address [facility] Co de Phone Number [facility] [address] [place] [address] * (ABNORMAL) Phosphorus (09/18/2024 2:19 AM EDT) Phosphorus, Plasma 5.6(H) 2.5 - 4.5 mg/dL 09/18/2024 3:02 AM EDT [facility] Blood Venous blood specimen / Unknown Venipuncture / Unknown 09/18/2024 2:19 AM EDT 09/18/2024 2:36 AM EDT us Betty Garcia MD LAB BLOOD ORDERABLES Final Result [facility] [address] [place] [address] * (ABNORMAL) CBC (09/18/2024 2:19 AM EDT) WBC Count 15.28(H) 3.70 - 10.30 10*3/uL LAB HEMATOLOGY METHOD 09/18/2024 2:45 AM EDT [facility] RBC Count 3.80(L) 3.90 - 5.20 10*6/uL LAB HEMATOLOGY METHOD 09/18/2024 2:45 AM EDT [facility] HGB 10.6(L) 11.2 - 15.7 g/dL LAB HEMATOLOGY METHOD 09/18/2024 2:45 AM EDT [facility] HCT 33.1(L) 34.0 - 45.0 % LAB HEMATOLOGY METHOD 09/18/2024 2:45 AM EDT [facility] Platelet Count 468(H) 155 - 369 10*3/uL LAB HEMATOLOGY METHOD 09/18/2024 2:45 AM EDT [facility] MCV 87 79 - 98 fL LAB HEMATOLOGY METHOD 09/18/2024 2:45 AM EDT [facility] MCH 27.9 26.0 - 32.0 pg LAB HEMATOLOGY METHOD 09/18/2024 2:45 AM EDT [facility] MCHC 32.0 30.7 - 35.5 g/dL LAB HEMATOLOGY METHOD 09/18/2024 2:45 AM EDT [facility] RDW 14.9(H) 11.5 - 14.5 % LAB HEMATOLOGY METHOD 09/18/2024 2:45 AM EDT [facility] MPV 9.0 8.8 - 12.5 fL LAB HEMATOLOGY METHOD 09/18/2024 2:45 AM EDT [facility] nRBC 0.0 <=0.0 per 100 WBCs LAB HEMATOLOGY METHOD 09/18/2024 2:45 AM EDT [facility] Blood Venous blood specimen / Unknown Venipuncture / Unknown 09/18/2024 2:19 AM EDT 09/18/2024 2:39 AM EDT us Betty Garcia MD LAB BLOOD ORDERABLES Final Result [facility] [address] [place] [address] * (ABNORMAL) Basic Metabolic Panel (09/18/2024 2:19 AM EDT) Glucose, Plasma 89 74 - 99 mg/dL 09/18/2024 3:07 AM EDT [facility] BUN, Plasma 6(L) 7 - 21 mg/dL 09/18/2024 3:07 AM EDT [facility] Creatinine, Plasma 0.81 0.60 - 1.10 mg/dL 09/18/2024 3:07 AM EDT [facility] BUN/Creatinine Ratio 7 09/18/2024 3:07 AM EDT [facility] Sodium, Plasma 138 136 - 145 mmol/L 09/18/2024 3:07 AM EDT [facility] Potassium, Plasma 3.6 3.6 - 4.9 mmol/L 09/18/2024 3:07 AM EDT [facility] Chloride, Plasma 101 97 - 107 mmol/L 09/18/2024 3:07 AM EDT [facility] CO2, Plasma 26 22 - 29 mmol/L 09/18/2024 3:07 AM EDT [facility] Anion Gap 11 6 - 16 mmol/L 09/18/2024 3:07 AM EDT [facility] Total Calcium, Plasma 8.5(L) 8.9 - 10.2 mg/dL 09/18/2024 3:07 AM EDT [facility] eGFRcr 86.4 mL/min/1.7 3m*2 09/18/2024 3:07 AM EDT [facility] Comment:Reported eGFRcr in m L/min/1.73m2 is based the CKD-EPI 2020 equation that does not use a race coefficient. Blood Venous blood specimen / Unknown Venipuncture / Unknown 09/18/2024 2:19 AM EDT 09/18/2024 2:36 AM EDT Betty Garcia MD LAB BLOOD ORDERABLES Final Result Performing Organization Address City/[facility]/ZIP Co de Phone Number [facility] [address] [place] [address] * Clostridium difficile EIA (09/18/2024 2:18 AM EDT) C difficile EIA Interpretation C. difficile infection not likely. May represent colonization . 09/18/2024 7:51 AM EDT [facility] Toxin Result Negative Negative 09/18/2024 7:51 AM EDT [facility] GDH Result Positive Negative 09/18/2024 7:51 AM EDT [facility] Stool Rectum structure / Unknown Non-blood Collection / Unknown 09/18/2024 2:18 AM EDT 09/18/2024 3:01 AM EDT Narrative [facility] - 09/18/2024 7:51 AM EDT This toxin/GDH assay was reflexed from a positive C. difficile PCR result. Betty Garcia MD LAB MICROBIOLOGY - GENERAL ORDERABLES Final Result Performing Organization Address City/[facility]/ZIP Co de Phone Number [facility] [address] [place] [address] * Comprehensive GI Panel by PCR (09/18/2024 2:18 AM EDT) Campylobacter PCR Result Not Detected Not Detected 09/18/2024 7:51 AM EDT [facility] Plesiomonas shigelloides PCR Result Not Detected Not Detected 09/18/2024 7:51 AM EDT [facility] Salmonella PCR Result Not Detected Not Detected 09/18/2024 7:51 AM EDT [facility] Vibrio species PCR Result Not Detected Not Detected 09/18/2024 7:51 AM EDT [facility] Vibrio cholerae PCR Result Not Detected Not Detected 09/18/2024 7:51 AM EDT [facility] Yersinia enterocolitica PCR Result Not Detected Not Detected 09/18/2024 7:51 AM EDT [facility] Enteroaggregative E. coli (EAEC) PCR Result Not Detected Not Detected 09/18/2024 7:51 AM EDT [facility] Enteropathogenic E. coli (EPEC) PCR Result Not Detected Not Detected 09/18/2024 7:51 AM EDT [facility] Enterotoxigenic E. coli (ETEC) lt/st PCR Result Not Detected Not Detected 09/18/2024 7:51 AM EDT [facility] Shiga-like Toxin-Producing E.coli (STEC) stx1/stx2 PCR Resu Not Detected Not Detected 09/18/2024 7:51 AM EDT [facility] E coli 0157 PCR Result Not Detected Not Detected 09/18/2024 7:51 AM EDT [facility] Shigella/Enteroinvas alexsandra E. coli (EIEC) PCR Result Not Detected Not Detected 09/18/2024 7:51 AM EDT [facility] Cryptosporidium PCR Result Not Detected Not Detected 09/18/2024 7:51 AM EDT [facility] Cyclospora cayetanensis PCR Result Not Detected Not Detected 09/18/2024 7:51 AM EDT [facility] Entamoeba histolytica PCR Result Not Detected Not Detected 09/18/2024 7:51 AM EDT [facility] Giardia duodenalis (aka Giardia lamblia) PCR Result Not Detected Not Detected 09/18/2024 7:51 AM EDT [facility] Adenovirus F 40/41 PCR Result Not Detected Not Detected 09/18/2024 7:51 AM EDT [facility] Astrovirus PCR Result Not Detected Not Detected 09/18/2024 7:51 AM EDT [facility] Norovirus GI/GII PCR Result Not Detected Not Detected 09/18/2024 7:51 AM EDT [facility] Rotavirus A PCR Result Not Detected Not Detected 09/18/2024 7:51 AM EDT [facility] Sapovirus PCR Result Not Detected Not Detected 09/18/2024 7:51 AM EDT [facility] Stool Rectum structure / Unknown Non-blood Collection / Unknown 09/18/2024 2:18 AM EDT 09/18/2024 3:01 AM EDT Narrative [facility] - 09/18/2024 7:51 AM EDT [...] LAB MICROBIOLOGY - GENERAL ORDERABLES Final Result [facility] [address] [place] [address] * (ABNORMAL) Clostridiodes (Clostridium) difficile PCR (09/18/2024 2:18 AM EDT) C difficile PCR toxin B gene DNA Result Detected, Reflex GDH/Toxin antigen test pending, see CDEIA for final result.(A) Not Detected 09/18/2024 4:41 AM EDT [facility] Comment:Reflex GDH/Toxin ant igen test pending, see CDEIA for final result. Stool Rectum structure / Unknown Non-blood Collection / Unknown 09/18/2024 2:18 AM EDT 09/18/2024 3:01 AM EDT Narrative [facility] - 09/18/2024 4:41 AM EDT [...] ORDERABLES Final Result Performing Organization Address City/[facility]/ZIP Co de Phone Number [facility] [address] [place] [address] * ECG Adult (09/18/2024 1:37 AM EDT) EKG DIAGNOSIS CLASS Abnormal MUSE ECG Ventricular Rate 90 BPM MUSE ECG Atrial Rate 90 BPM MUSE ECG OR Interval 138 ms MUSE ECG QRSD Interval 104 ms MUSE ECG QT Interval 440 ms MUSE ECG QTC Interval 538 ms MUSE ECG P [place] 61 degrees MUSE ECG R [place] 56 degrees MUSE ECG T Wave [place] 71 degrees MUSE ECG Diagnosis Normal sinus rhythm MUSE ECG Diagnosis Low voltage QRS MUSE ECG Diagnosis Prolonged QT MUSE ECG Diagnosis Abnormal ECG MUSE ECG Diagnosis MUSE ECG Diagnosis Confirmed by Marlena Zhou ([id number]) on 09/18/2024 12:14:01 PM MUSE ECG 09/18/2024 1:37 AM EDT 09/18/2024 12:14 PM EDT us Betty Garcia MD ECG ORDERABLES Final Resu lt Performing Organization Address [facility] Co de Phone Number MUSE ECG documented [...] Disorders of magnesium metabolism Hypocalcemia S/P colostomy (CMS/HCC) Colostomy status documented in this encounter Admitting [...] PRN, Starting on Tue09/19/24 at 0144, Until [place] 09/23/24 at 1405, Administer over 15 Minutes, [...] 0.25 mg, Intravenous, Once, 1 dose, On Tue09/22/24 at 0645, Routine Given 09/22/2024 6:04 AM [...] PRN, Starting on Tue09/19/24 at 1952, Until Tue09/23/24 at 1405, Routine, sleep Given 09/20/2024 10:54 [...] Emily 09/20/24 at 0930, Until Discontinued, Routine Given 09/23/2024 [...] Yousif, JAMARI) 0323 (Given - Provider: Kelvin Yousif, JAMARI)1200 (Canceled Entry - Provider: Automatic Discharge Provider [...] on Tue09/20/24 at 0930, Until Discontinued, Routine 0836 (Given [...] RN)2140 (Given - Provider: Kelvin Yousif RN) 0854 (Given - Provider: Kehinde Andrade RN)1400 [...] Mason RN) 0809 (Given - Provider: Geno Guillroy RN)2140 (Given - Provider: Kelvin Yousif, JAMARI) 0855 (Given - Provider: Kehinde Andrade RN) mupirocin (Bactroban) 2 % ointment 1 Application Each Nostril, 2 times daily, 10 doses, First dose on Emily 09/20/24 at 0130, Last dose on Tue09/24/24 at 0900, Routine 0836 (Given - Provider: Marysol Lopez RN)2032 (Given - Provider: Brandie Mason, RN) 0821 (Given - Provider: Geno Guillory, JAMARI)2140 (Given - Provider: Kelvin Yousif RN) 0857 (Given - Provider: Kehinde Andrade RN) ondansetron ODT (Zofran-ODT) disintegrating tablet 4 mg 4 mg, Oral, 3 times daily with meals, First dose on Tue09/21/24 at 0830, Until Discontinued, Routine 0841 (Given - Provider: Marysol Lopez RN)1216 (Given - Provider: Marysol Lopez RN)1637 (Given - Provider: Marysol Lopez RN) 0808 (Given - Provider: Geno Guillory RN)1350 (Given - Provider: Geno Guillory RN)1646 (Not [...] 0600, Routine 0544 (Given - Provider: Brandie Mason, RN) primidone (Mysoline) tablet 50 mg 50 mg, Oral, 2 times daily, First dose (after last modification) on Tue09/18/24 at 2100, Until Discontinued, Routine 0836 (Given - Provider: Marysol Lopez, RN)2031 (Given - Provider: Brandie Mason, RN) 08 (Given - Provider: Geno Guillory, JAMARI)2139 (Given - Provider: Kelvin Yousif, RN) 0857 (Given - Provider: Kehinde Andrade, JAMARI) [...] Discontinued, Routine 2031 (Given - Provider: Brandie Mason, JAMARI) 2139 (Given - Provider: Kelvin Yousif, JAMARI) [...] Routine, anxiety 1637 (Given - Provider: Marysol Lopez, JAMARI)2243 (Given - Provider: Brandie Mason RN) 0323 [...] 1405, Routine, nausea, vomiting 0857 (Return to Cabinet - Provider: Kehinde Andrade, JAMARI) oxyCODONE (Roxicodone) immediate release tablet 5 mg 5 mg, Oral, Every 4 hours PRN, Starting on Tue09/18/24 at 0053, Until Tue09/23/24 at 1405, Routine, severe pain 2347 (Given - Provider: Brandie Mason RN) 0540 (Given - Provider: Brandie Mason RN)0930 (Given - Provider: Geno Guillory RN)2156 (Given - Provider: Kelvin Yousif, JAMARI) 0324 [...] Intravenous, Every 6 hours PRN, Starting on 09/21/24 at 0735, Until 09/23/24 at 1405, Routine, [...] documented as of this encounter Care Teams Water Commissioner Relationship Specialty Start Date End Date Champ Quiroz MD [address] [place] [address] [place] [id number] PCP - General Internal Medicine 06/29/24 documented as of this encounter
--- OUTSIDE RECORDS SUMMARY | 2024-10-01 11:15 | XMS_ITS ---
Author Organization [facility] Address [address] [facility] [address] [place] [address] Care Team Providers Care Veterinary X Ray Operator Name Role Phone Michaelle Rivas Primary Care Provider Champ Quiroz Unavailable [phone] Allergies Allergen (clinical drug ingredient) Drug/Non Drug [...] Status Risk Notes Problem Generalized anxiety disorder (16394113) Generalized anxiety disorder (F41.1) Active confirmed Vital Signs Temperature 97.7 degrees Fahrenheit 10/02/19 25 Heart Rate 84 /min 10/01/2024 Blood pressure systolic 126 mm Hg 10/02/19 25 Blood pressure diastolic 72 mm Hg 025 Height 5 ft 1 in in 10/01/2024 Weight 117 lbs 10/01/2024 BMI 22.1 kg/m2 10/01/2024 Encounters Encounter Location Date Provider Diagnosis [facility] [place] [address] [facility] [address] [place] [address] 10/01/2024 Champ Quiroz Generalized anxiety disorder F41.1 ; Atherosclerosis of [place] coronary artery of [place] heart without angina pectoris I25.10 ; Colostomy [...] with the anxiety. We refered her to [facility] and the Medicare office to see if she can get in contact with a therapist and a social work therapist. 10/01/2024 Atherosclerosis of [place] coronary artery of [place] heart without angina pectoris (ICD-10 - I25.10) [...] with the anxiety. We refered her to [facility] and the Medicare office to see if she can get in contact with a therapist and a social work therapist. Atherosclerosis of [place] co ronary artery of [place] heart without angina pectoris Overall stable post [...] Next Appt Details Follow Up: prn,2 Months, [place] son: Provider Name:Champ Quiroz, 10/31/2024 03:15:00 PM, [address] [facility] [address] [facility], [address], [place], [address], Progress Notes * Rere REESE ADOB: [birth year] (53 yo F)Acc No.[id number]:10/01/2024 HOSP F/U Patient: Rere DICKSON Provider: Dayana Quiroz MD :1970 A ge:53 Y S ex:Female Date:10/01/2024 Address:[address] [place] [address] [place], [id number] Pcp:Michaelle Rivas Subjective: * Chief Complaints: * [...] and colostomy April/2024 at [facility], Colitis. * Surgical History: l t rotator cuff 2020, rt hand surgery 01/2023, colon resection 04/30/24. * Hospitalization/Major Diagno stic Procedure: H MH 01/2022, - heart attach 04/30/2024-06/28/24, Septic 07/24/2024, [facility]- abd pain 07/2024, [facility] 09/[facility]24. * [...] no. Travel outside [place]: no. 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 * Medications: T aking Loratadine 10 [...] F41.1 (Primary) 2 . A therosclerosis of [place] coronary artery of [place] heart without angina pectoris - I25.10 3 . C olostomy status - Z93.3 4 . H ospital discharge follow-up - Z09 Plan: * Treatment: 2. A therosclerosis of [place] coronary artery of [place] heart without angina pectoris Notes: Overall stable [...] 10/01/2024 Generated for Printi ng/Faleolag/eTransmitting on: 0 10/11/2024 03:36 PM EDT History and Physical [...]
--- OUTSIDE RECORDS SUMMARY | 2024-10-11 15:36 | XMS_ITS | Encounter Summary ---
Author Organization [facility] Address [address] [id number] Care Team Providers Care Dispersion Mixer Name Role Phone Champ Quiroz MD Primary Care Provider [phone] Encounter Details Date Type Department Care Team (Late st Contact Info) Description 10/04/2024 Telephone [facility] General Surgery [address], [address] [place] [address] Viri Ibrahim [facility] [address] [place] [address] Social History Tobacco Use Types Packs/Day Years [...] living in a m[facility] (including now)? No 09/21/2024 CAGE ASSESSMENT Answer [...] drink first t jaime in the morning (EYE-OYSTER CULTIVATOR) to steady your nerves or to get [...] encounter Miscellaneous Notes * Telephone Encounter - Viri Ibrahim - 10/04/2024 8:58 AM EDT Called to provide updated appt info. documented in this encounter Plan of Treatment Upcoming Encounters Date Type Department Care Team (Late st Contact Info) Description 11/06/2024 11:00 AM EDT Office Visit [facility] General Surgery [address], [address] [place] [address] Lidia Troncoso MD [address] [place] [address] documented as of this encounter Goals Goal [...] filedocumented in this encounter Additional Health Concerns Infection Onset Date Last Indicated Resolved Time C. difficile 09/18/2024 09/18/2024 Assessment Noted Time PHQ-9 Depression Total Score: 1 06/30/19 25 2:40 PM EDT A fall risk assessment has been complete d for the patient 07/18/2024 11:10 AM EDT A Body Mass Index follow-up plan has been documented for the patient 09/23/2024 9:01 AM EDT documented as of this encounter Care Teams Dispersion Mixer Relationship Specialty Start Date End Date Champ Quiroz MD [address] [place] [address] PCP - General Internal Medicine 06/29/24 documented as of this encounter
--- OUTSIDE RECORDS SUMMARY | 2024-10-11 15:36 | XMS_ITS | Encounter Summary ---
Author Organization [facility] Address [address] [place] [address] Care Team Providers Care Vehicle Fuel Systems Converter Name Role Phone Champ Quiroz MD Primary Care Provider + [phone] Encounter Details Date Type Department Care Team (Latest Contact Info) Description 09/17/2024 Travel Social History Tobacco Use Types Packs/Day [...] more drinks on one occasion? Never 07/18/2024 CAGE ASSESSMENT Answer Date Recorded Cage unable [...] drink first t jaime in the morning (EYE-CANE FLUME FEEDING MACHINE OPERATOR) to steady your nerves or to [...] Description 11/06/2024 11:00 AM EDT Office Visit [facility] General Surgery [address], [address] [place] [address] Lidia Troncoso MD [address] [place] [address] documented as of this encounter [...] documented as of this encounter Care Teams Vehicle Fuel Systems Converter Relationship Specialty Start Date End Date Champ Quiroz MD [address] [place] [address] PCP - General Internal Medicine 06/29/24 documented as of this encounter
--- OUTSIDE RECORDS SUMMARY | 2024-10-11 15:36 | XMS_ITS | Clinical Summary ---
Author Organization [facility] Address [address] [place] [address] Care Team Providers Care Director Religious Education Name Role Phone Provider, No Known Primary Care Provider [phone] Allergies No known active allergies Medications propranolol [...] 2023 INFLUENZA VACCINE 11/14/2024 Insurance Care Teams Director Religious Education Relationship Specialty Start Date End Date Provider, No Known [place], [place] [id number] PCP - General 01/12/16
--- OUTSIDE RECORDS SUMMARY | 2024-10-11 15:36 | XMS_ITS | Encounter Summary ---
Author Organization [facility] Address [address] [place] [address] Care Team Providers Care Sorter Pricer Name Role Phone Champ Quiroz MD Primary Care Provider [phone] Encounter Details Date Type Department Care Team (Late st Contact Info) Description 08/22/2024 Results Follow-Up Colorectal Surgery [address] [place] [address] Lidia Troncoso MD [address] [facility] [address] [place] [address] Social History Tobacco Use Types Packs/Day Years [...] In the past 12 months has e [employer], gas, oil, or water [employer] threatened to shut off services in your [...] Description 11/06/2024 11:00 AM EDT [facility] Visit [facility] General Surgery [address], [address] [place] [address] Lidia Troncoso MD [address] [place] [address] documented as of this encounter [...] documented as of this encounter Care Teams Sorter Pricer Relationship Specialty Start Date End Date Champ Quiroz MD [address] [place] [address] PCP - General Internal Medicine 06/29/24 documented as of this encounter
--- NOTE | 2024-10-11 15:37 | XR_ITS ---
FINAL REPORT CLINICAL HISTORY: ACUTE COUGH, congestion FINDINGS: PA and lateral views of the chest were obtained. The heart is normal in size. Patient is status post median sternotomy. The lungs are clear. There is no pleural effusion or pneumothorax. No acute osseous abnormality is identified. IMPRESSION: No radiographic evidence of acute cardiac or pulmonary disease. Reviewed, Interpreted and Dictated by Frances Castillo MD Transcribed by Andie Moreira Authenticated and [facility]
--- OUTSIDE RECORDS SUMMARY | 2024-10-11 15:37 | XMS_ITS | Encounter Summary ---
Author Organization [facility] Address [address] [place] [address] Care Team Providers Care Magazine Publisher Name Role Phone Champ Quiroz MD Primary Care Provider [phone] Encounter Details Date Type Department Care Team (Late st Contact Info) Description 09/17/2024 Orders Only External Location [address] [place] [address] Provider, External Social History Tobacco Use Types [...] any time in the past 12 m [facility], were you homeless or living in a alf (including now)? No 09/21/2024 CAGE ASSESSMENT Answer [...] drink first t jaime in the morning (EYE-MARKET RISK ANALYST) to steady your nerves or to get [...] Date of Assessment Author No Risk Indicated 09/21/2024 8:00 AM EDT Marysol Lopez, RN * Question Answer Date of Assessment Author 1. Wish to be (Past 1 Month) No 025 8:00 AM EDT Marysol Lopez, RN 2. Non-Specific Active Suici erica Thoughts (Past 1 Month) No 09/21/2024 8:00 AM EDT John Lopez RN 6. Suicidal Behavior (Lifetime) No 8:00 AM EDT Marysol Lopez, RN documented as of this encounter Plan of Treatment Upcoming Encounters Date Type Department Care Team (Late st Contact Info) Description 11/06/2024 11:00 AM EDT Office Visit [facility] General Surgery [address] [place] [address] Lidia Troncoso MD [address] [facility] [address] [place] [address] documented as of this encounter [...] Name Priority Date/Time Associated Diagnosis Comments XR OUTSIDE IMAGES 09/17/2024 5:42 PM EDT documented in this encounter Results * XR OUTSIDE IMAGES (09/17/2024 5:42 PM EDT) Anatomical Region Laterality Modality Radiographic Leatha ging 09/17/2024 5:42 PM EDT us External Provider IMG XR PROCEDURES Final Result documented in [...] documented as of this encounter Care Teams Magazine Publisher Relationship Specialty Start Date End Date Champ Quiroz MD [address] [place] [address] PCP - General Internal Medicine 06/29/24 documented as of this encounter
--- OUTSIDE RECORDS SUMMARY | 2024-10-11 15:37 | XMS_ITS | Encounter Summary ---
Author Organization Healthcare Address [address] [place] [address] Care Team Providers Care Middle School Librarian Name Role Phone Pcp, No Primary Care Provider Champ Butler MD Primary Care Provider [phone] Encounter Details Date Type Department Care Team (Late st Contact Info) Description 05/14/2024 Lab Requisition [facility] [address] [place] [address] Tom Dyson MD [address] [facility] [address] [place] [address] Encounter for general adult medical examination without [...] time in the past 12 m [facility], were you homeless or living in [...] Description 11/06/2024 11:00 AM EDT Office Visit [facility] [address], [address] [place] [address] Lidia Troncoso MD [address] [place] [address] documented as of this encounter [...] at day 1 05/15/2024 11:17 AM EDT [facility] Swab (Nares and Jacey Rectal) 05/14/2024 8:24 AM EDT 05/14/2024 2:12 PM EDT us Tom Dyson MD LAB MICROBIOLOGY - GEN ERAL ORDERABLES Final Result [facility] [address] [place] [address] documented in this encounter Visit Diagnoses Diagnosis Encounter for general adult medical examination without abnormal findings documented in this encounter Additional Health Concerns Infection Onset Date Last Indicated Resolved Time COVID-19 Rule-Out 05/13/2024 05/13/2024 05/14/2024 12:24 PM EDT Respiratory Rule-Out 05/13/2024 05/13/2024 025 2:56 AM EDT C. difficile Rule-Out 05/18/2024 05/18/20242024 2:09 AM EDT Gastrointestinal Rule-Out 05/18/2024 05/18/2024 2:10 AM EDT C. difficile Rule-Out 09/18/2024 09/18/20242024 4:41 AM EDT Gastrointestinal Rule-Out 09/18/2024 09/18/2024 5:13 AM EDT C. difficile 09/18/2024 09/18/2024 Assessment Noted Time A fall risk assessment has been complete d for the patient 06/28/2023 1:56 PM EDT A Body Mass Index follow-up plan has been documented for the patient 06/21/2024 1:40 PM EDT documented as of this encounter Care Teams Middle School Librarian Relationship Specialty Start Date End Date Pcp, Katherine [address] [place] [address] PCP - General Family Medicine 04/04/24 06/28/24 Champ Quiroz MD [address] [facility] [address] [place] [address] PCP - General Internal Medicine 06/29/24 documented as of this encounter
--- OUTSIDE RECORDS SUMMARY | 2024-10-11 15:37 | XMS_ITS | Encounter Summary ---
Author Organization Healthcare Address [address] [place] [address] Care Team Providers Care Zigzag Machine Operator Name Role Phone Champ Quiroz MD Primary Care Provider [phone] Encounter Details Date Type Department Care Team (Late st Contact Info) Description 09/17/2024 Orders Only External Location [address] [place] [address] Provider, External Social History Tobacco Use Types [...] any time in the past 12 m [facility], were you homeless or living in a usp (including now)? No 09/21/2024 CAGE ASSESSMENT Answer [...] drink first t jaime in the morning (EYE-LANDING SUPPORT SPECIALIST) to steady your nerves or to [...] Description 11/06/2024 11:00 AM EDT Office Visit [facility] General Surgery [address], [address] [place] [address] Lidia Troncoso MD [address] [facility] [address] [place] [address] documented as of this encounter [...] Associated Diagnosis Comments CT [facility] OUTSIDE IMAGES 09/17/2024 6:09 PM EDT documented in this encounter Results * CT MSK OUTSIDE IMAGES (09/17/2024 6:09 PM EDT) Anatomical Region Laterality Modality Computed Tomogra phy 09/17/2024 6:09 PM EDT External Provider IMG CT PROCEDURES [...] documented as of this encounter Care Teams Zigzag Machine Operator Relationship Specialty Start Date End Date Champ Quiroz MD [address] [place] [address] PCP - General Internal Medicine 06/29/24 documented as of this encounter
--- OUTSIDE RECORDS SUMMARY | 2024-10-11 15:37 | XMS_ITS | Encounter Summary ---
Author Organization Healthcare Address [address] [place] [address] Care Team Providers Care Wholesale Account Manager Name Role Phone Pcp, No Primary Care Provider Champ Butler MD Primary Care Provider + [phone] Encounter Details Date Type Department Care Team (Late st Contact Info) Description 05/21/2024 Lab Requisition [facility] [address] [place] [address] Tom Dyson MD [address] [facility] [address] [place] [address] Encounter for general adult medical examination without [...] Description 11/06/2024 11:00 AM EDT Office Visit [facility] General Surgery [address], [address] [place] [address] Lidia Troncoso MD [address] [place] [address] documented as of this encounter [...] at day 1 05/22/2024 8:46 AM EDT [facility] Swab (Nares and Jacey Rectal) 05/21/2024 11:00 AM EDT 05/21/2024 11:55 AM EDT us Tom Dyson MD LAB MICROBIOLOGY - GEN ERAL ORDERABLES Final Result [facility] [address] [place] [address] documented in this encounter Visit Diagnoses Diagnosis [...] documented as of this encounter Care Teams Wholesale Account Manager Relationship Specialty Start Date End Date Pcp, Katherine [address] [place] [address] PCP - General Family Medicine 04/04/24 06/28/24 Champ Quiroz MD [address] [place] [address] PCP - General Internal Medicine 06/29/24 documented as of this encounter
--- OUTSIDE RECORDS SUMMARY | 2024-10-11 15:38 | XMS_ITS | Encounter Summary ---
Author Organization Healthcare Address [address] [place] [address] Care Team Providers Care Long Term Care Social Worker Name Role Phone Champ Quiroz MD Primary Care Provider [phone] Encounter Details Date Type Department Care Team (Late st Contact Info) Description 08/09/2024 Orders Only External Location [address] [place] [address] Millie Ambrose, DO [address] [place] [address] Social History Tobacco Use Types Packs/Day Years [...] time in the past 12 m [facility], were you homeless or living in a [...] the past 12 months has th e Event [employer], gas, oil, or water company threatened to [...] Description 11/06/2024 11:00 AM EDT Office Visit [facility] General Surgery [address], 1st [place] [address] Lidia Troncoso MD [address] [place] [address] documented as of this encounter Goals Goal [...] documented as of this encounter Care Teams Long Term Care Social Worker Relationship Specialty Start Date End Date Champ Quiroz MD [address] [place] [address] PCP - General Internal Medicine 06/29/24 documented as of this encounter
--- OUTSIDE RECORDS SUMMARY | 2024-10-11 15:38 | XMS_ITS | Encounter Summary ---
Author Organization Healthcare Address [address] [place] [address] Care Team Providers Care Media Production Operator Name Role Phone Champ Quiroz MD Primary Care Provider [phone] Reason for Visit * Reason Onset Date Comments HCN Clinical Concern/Question 08/21/2024 HCN Status Update Call #1 08/21/2024 HCN Status Update Call #2 08/21/2024 Encounter Details Date Type Department Care Team (Late st Contact Info) Description 08/21/2024 Telephone [facility] General Surgery [address], [address] [place] [address] Lidia Troncoso MD [address] [facility] [address] [place] [address] HCN Clinical Concern/Question; HCN Status [...] in a senior care (including now)? No 09/21/2024 CAGE ASSESSMENT Answer [...] drink first t jaime in the morning (EYE-MAP AND CHART MOUNTER) to steady your nerves or to get rid of a hangover? 0 09/17/2024 CAGE Questionnaire Score 0 025 Utilities Answer Date Recorded In the past 12 months has th e [employer], gas, oil, or water [employer] threatened to shut off services in your [...] Assessment Author No Risk Indicated 09/21/2024 8:00 PM EDT Brandie Mason RN * Question Answer Date of Assessment Author 1. Wish to be (Past 1 Month) No 025 8:00 PM EDT Brandie Mason RN 2. Non-Specific Active Suici erica Thoughts (Past 1 Month) No 09/21/2024 8:00 PM EDT Brandie Mason RN 6. Suicidal Behavior (Lifetime) No 8:00 PM EDT Brandie Mason RN documented as of this encounter Miscellaneous [...] of the initial request. Best contact number: [phone] (mobile) Optimal time of day to reach [...] receive notification of the communication/outcome via MyChart. * Telephone Encounter - Pamela Cordero - 08/27/2024 12:20 PM EDT Status Update Call #1 1st call regarding the status of the initial request. Pt calling stating that the pain she was having when she first called is persistent. She doesn't have an appetite and she has barely had a bm. Please call Best contact number: [phone] (mobile) Optimal time of day to reach [...] receive notification of the communication/outcome via MyChart. * Telephone Encounter - Rina Mason RN - 08/21/2024 5:40 PM EDT Patient has went to local ED for evaluation. CRS has been contacted for consult via [employer]. * Telephone Encounter - Kerry Hutchinson - 08/21/2024 1:40 PM EDT Clinical Concern/Question Reason for Call: Patient says she is in a lot of pain , she says she will like a call back from a nurse she says she is still in [place] , requesting a call [facility] Best contact number: [phone] (mobile) Optimal time of day to reach caller: ANYTIME Additional comments/information from caller: None Note: Please do not reply to this message. Follow-up communication and further actions as a result of this message need to be communicated with the patient directly, if the patient is not active onMyChart. If the patient is active on MyChart, they will receive notification of the communication/outcome via [employer]. documented in this encounter Plan of Treatment Upcoming Encounters Date Type Department Care Team (Late st Contact Info) Description 11/06/2024 11:00 AM EDT Office Visit [facility] General Surgery [address] [place] [address] Lidia Troncoso MD [address] [place] [address] documented as of this encounter Goals Goal [...] documented as of this encounter Care Teams Media Production Operator Relationship Specialty Start Date End Date Champ Quiroz MD [address] [place] [id number] PCP - General Internal Medicine 06/29/24 documented as of this encounter
--- OUTSIDE RECORDS SUMMARY | 2024-10-11 15:38 | XMS_ITS | Encounter Summary ---
Author Organization [facility] Address [address] [place] [address] Care Team Providers Care Grade And Center Marker Name Role Phone Champ Quiroz MD Primary Care Provider + [phone] Encounter Details Date Type Department Care Team [...] any time in the past 12 m [facility], were you homeless or [...] the past 12 months has th e [employer], gas, oil, or water company threatened to [...] Description 11/06/2024 11:00 AM EDT Office Visit [facility] General Surgery [address] [place] [address] Lidia Troncoso MD [address] [place] [address] documented as of this encounter Goals Goal [...] documented as of this encounter Care Teams Grade And Center Marker Relationship Specialty Start Date End Date Champ Quiroz MD [address] [place] [address] PCP - General Internal Medicine 06/29/24 documented as of this encounter
--- OUTSIDE RECORDS SUMMARY | 2024-10-11 15:38 | XMS_ITS | Encounter Summary ---
Author Organization Healthcare Address [address] [place] [address] Care Team Providers Care Environmental Intern Name Role Phone Champ Quiroz MD Primary Care Provider [phone] Encounter Details Date Type Department Care Team (Late st Contact Info) Description 08/07/2024 Orders Only External Location [address] [place] [address] Provider, External Social History Tobacco Use Types [...] any time in the past 12 m [facility], were you homeless or living in [...] Description 11/06/2024 11:00 AM EDT Office Visit [facility] General Surgery [address] [place] [address] Lidia Troncoso MD [address] [place] [address] documented as of this encounter Goals Goal [...] documented as of this encounter Care Teams Environmental Intern Relationship Specialty Start Date End Date Champ Quiroz MD [address] [place] [address] PCP - General Internal Medicine 06/29/24 documented as of this encounter
--- OUTSIDE RECORDS SUMMARY | 2024-10-11 15:38 | XMS_ITS | Encounter Summary ---
Author Organization Healthcare Address [address] [place] [address] Care Team Providers Care Seam Feller Name Role Phone Champ Quiroz MD Primary Care Provider [phone] Encounter Details Date Type Department Care Team (Late st Contact Info) Description 07/21/2024 Orders Only External Location [address] [place] [address] Sundeep Fisher MD [address] [place] [address] Social History Tobacco Use Types Packs/Day [...] the past 12 months has th e [employer]), gas, oil, or water company threatened to [...] Description 11/06/2024 11:00 AM EDT Office Visit [facility] General Surgery [address] [place] [address] Lidia Troncoso MD [address] [place] [phone] documented as of this encounter Goals Goal [...] documented as of this encounter Care Teams Seam Feller Relationship Specialty Start Date End Date Champ Quiroz MD [address] [place] [address] PCP - General Internal Medicine 06/29/24 documented as of this encounter
--- OUTSIDE RECORDS SUMMARY | 2024-10-11 15:38 | XMS_ITS | Encounter Summary ---
Author Organization Healthcare Address [address] [place] [address] Care Team Providers Care Advanced Practice Professional Name Role Phone Champ Quiroz MD Primary Care Provider + [phone] Reason for Visit * Reason Onset Date Comments HCN Same Day Appt/Overbook Request 09/12/2024 Encounter Details Date Type Department Care Team (Late st Contact Info) Description 09/12/[address] [facility] General Surgery [address] [place] [address] Lidia Troncoso MD [address] [place] [address] HCN Same Day Appt/Overbook Request [...] the past 12 months has th e [employer], gas, oil, or water company threatened to [...] Telephone Encounter - Rina Mason RN - 09/18/2024 3:34 PM EDT Attempted to call patient. No answer. Upon chart review, patient is admitted to currently. * Telephone Encounter - Aleshia Connolly - 09/17/2024 3:07 PM EDT Status Update Call #1 1st call regarding the status of the initial request. Best contact number: [phone] (home) Optimal time of day to reach [...] will receive notification of the communication/outcome via [employer]. * Telephone Encounter - Rina Mason RN [...] get in araceli. Thanks! Best contact number: [phone] (home) Optimal time of day to reach [...] 11/06/2024 11:00 AM EDT Office Visit [facility] General Surgery [address] [place] [address] Lidia Troncoso MD [address] [place] [address] documented as of this encounter [...] as of this encounter Care Teams Advanced Practice Professional Relationship Specialty Start Date End Date Champ Quiroz MD [address] [place] [address] PCP - General Internal Medicine 06/29/24 documented as of this encounter
--- OUTSIDE RECORDS SUMMARY | 2024-10-11 15:38 | XMS_ITS | Encounter Summary ---
Author Organization Healthcare Address [address] [id number] Care Team Providers Care Manager Market Research Name Role Phone Champ Quiroz MD Primary Care Provider + [phone] Reason for Visit * Reason Onset Date Comments Med Refill 08/15/2024 Encounter Details Date Type Department Care Team (Late st Contact Info) Description 08/15/2024 Refill [facility] [address], [address] [place] [address] Ana Luisa Simental RN [id number] [address] [phone] Social History Tobacco Use Types Packs/Day Years [...] in the past [address] [facility], were you homeless or living in [...] the past 12 months has th e [employer], gas, oil, or water company threatened to [...] Description 11/06/2024 11:00 AM EDT Office Visit [facility] General Surgery [address] [place] [address] Lidia Troncoso MD [address] [place] [address] documented as of this encounter [...] as of this encounter Care Teams Manager Market Research Relationship Specialty Start Date End Date Champ Quiroz MD [address] [place] [address] PCP - General Internal Medicine 06/29/24 documented as of this encounter
--- OUTSIDE RECORDS SUMMARY | 2024-10-11 15:38 | XMS_ITS | Clinical Summary ---
Author Organization [facility] Address [address] [place] [address] Care Team Providers Care Food Service Counter Clerk Name Role Phone Champ Quiroz MD Primary Care Provider + [phone] Allergies Active Allergy Reactions Criticality Noted Date Comments Latex Rash Low 09/10/2020 Medications citalopram (CeleXA) 40 MG tablet Take 1 tablet by mouth daily. 3 Active primidone (Mysoline) 50 MG tablet Take 1 tablet by mouth 2 times a day. Active hydrOXYzine HCl (Atarax) 10 MG tablet Take 1 tablet by mouth every 8 hours as needed. Active buPROPion XL (Wellbutrin XL) 300 MG 24 hr tablet Take 1 tablet by mouth daily. 5 Active rosuvastatin (Crestor) 40 MG tablet Take 1 tablet by mouth nightly. 30 tablet 2 5 026 Active aspirin 81 MG chewable tablet Chew 1 tablet daily. 30 tablet 2 5 026 Active traZODone (Desyrel) 50 MG tablet Take 1 tablet by mouth nightly. 5 Active metoprolol tartrate (Lopressor) 25 MG tablet Take 1.5 tablets by mouth 2 times a day. 90 tablet 5 025 Active Additional Information Patient taking differently: 1 mgOral 2 times daily, Reported on 09/19/2024 fluticasone (Flonase) 50 MCG/ACT nasal spray Administer 1 spray into each nostril daily. Shake gently. Before first use, prime pump. After use, clean tip and replace cap. Active oxyCODONE (Roxicodone) 5 MG immediate release tablet Take 1 tablet by mouth every 6 hours as needed for severe pain. 5 tablet 5 Active acetaminophen (Tylenol) 500 MG tablet Take 2 tablets by mouth every 6 hours. 100 tablet 5 Active methocarbamol (Robaxin) 500 MG tablet Take 2 tablets by mouth 4 times a day. 14 tablet 5 Active naloxone (Narcan) 4 mg/0.1 mL nasal spray 1. Give 1 spray in nostril for no/slow breathing or cannot wake after opioid use 2. Call 911 3. Repeat in other nostril if symptoms continue 1 each 5 Active Combivent Respimat 20-100 MCG/ACT inhaler 4 025 Discontinu ed(Entered in Error) fluticasone (Flonase) 50 MCG/ACT nasal spray Administer 2 sprays into each nostril daily as needed. 4 025 Discontinu ed(Entered in Error) loratadine (Claritin) 10 MG tablet Take 1 tablet by mouth daily. 025 Discontinu ed(Entered in Error) acetaminophen (Tylenol) 500 MG tablet Take 2 tablets by mouth every 6 hours as needed for pain, headaches or fever. 100 tablet 5 025 Discontinu ed(Entered in Error) methocarbamol (Robaxin) 500 MG tablet Take 2 tablets by mouth 4 times a day for 10 days. 80 tablet 5 025 Discontinu ed(Entered in Error) naloxone (Narcan) 4 mg/0.1 mL nasal spray 1. Give 1 spray in nostril for no/slow breathing or cannot wake after opioid use 2. Call 911 3. Repeat in other nostril if symptoms continue 1 each 5 025 Discontinu ed(Entered in Error) simethicone (Mylicon) 80 MG chewable tablet Chew 1.5 tablets 4 times a day. 30 tablet 5 025 Discontinu ed(Entered in Error) potassium chloride CR (Klor-Con M20) 20 MEQ ER tablet Take 2 tablets by mouth daily. Do not crush or chew. 60 tablet 5 025 Discontinu ed(Entered in Error) amoxicillin-cl avulanate XR (Augmentin XR) 1000-62.5 MG 12 hr tabletIndicati ons:Enteritis Take 2 tablets by mouth 2 times a day for 4 doses. 8 tablet 5 025 Active Problems Problem Noted Date Diagnosed Date Enteritis 09/18/2024 Assessment & Plan (09/22/2024 1:46 PM EDT): Continue Augmentin for a 7-day total course (end date 09/24), deescalated from Zosyn (09/18-09/21) Regular diet, fat and fiber restriction Zofran for nausea Lomotil for liquid stools, abdominal pain Negative GI panel, h/o C as below Assessment & Plan (09/21/2024 10:32 AM EDT): Continue empiric antibiotics in high-risk patient (tentative plan for 7 day total course) Switch from IV Zosyn to oral Augmentin Regular diet, fat and fiber restriction Zofran with meals for nausea Negative GI panel, h/o C as below Assessment & Plan (09/21/2024 9:56 AM EDT): Continue empiric antibiotics in high-risk patient (tentative plan for 7 day total course) Switch from IV Zosyn to oral Augmentin Regular diet, fat and fiber restriction Zofran with meals for nausea Negative GI panel, h/o C as below Assessment & Plan (09/20/2024 2:15 PM EDT): Continue empiric antibiotic tx (Zosyn) in high-risk patient (tentative plan for 7 day total course) Advance to regular diet after tolerating full liquids Simethicone PRN for nausea Negative GI panel, h/o C as below Assessment & Plan (09/19/2024 1:31 PM EDT): Continue empiric antibiotics PPI BID, Simethicone PRN Negative GI panel Assessment & Plan (09/19/2024 12:24 AM EDT): -Empiric antibiotics -f/u GI panel and C. Diff PCR -Consider GI consult given recurrent inflammation in same segment of ileum Assessment & Plan (09/18/2024 5:12 PM EDT): Empiric abx started - Zosyn PPI BID PCR positive for C diff toxin consistent with prior infection; negative GI panel Right lower quadrant abdominal pain 09/18/2024 Assessment & Plan (09/22/2024 1:46 PM EDT): Improving but still present Continue abdominal exams Follow up outpatient with Dr. Troncoso in October for discussion on ostomy reversal and potential scope Assessment & Plan (09/21/2024 10:32 AM EDT): Improving Continue abdominal exams Follow up outpatient with Dr. Troncoso for further workup Assessment & Plan (09/20/2024 2:15 PM EDT): Improving Continue abdominal exams Assessment & Plan (09/19/2024 1:31 PM EDT): Monitor exam, abx as above Assessment & Plan (09/19/2024 12:24 AM EDT): Monitor exam, abx as above Assessment & Plan (09/18/2024 5:12 PM EDT): Monitoring for changes History of infection of inte chaitanya due to Clostridium difficile 09/18/2024 Assessment & Plan (09/22/2024 9:45 AM EDT): C diff PCR positive for toxin consistent with prior infection and colonization Contact precautions in place Enteritis treatment as above Assessment & Plan (09/21/2024 10:32 AM EDT): C diff PCR positive for toxin consistent with prior infection and colonization Contact precautions in place Enteritis treatment as above Assessment & Plan (09/20/2024 2:15 PM EDT): C diff PCR positive for toxin consistent with prior infection and colonization Contact precautions in place Enteritis treatment as above Assessment & Plan (09/19/2024 1:31 PM EDT): C diff PCR positive for toxin consistent with prior infection and colonization Contact precautions in place Assessment & Plan (09/19/2024 12:24 AM EDT): Recheck c-diff pending. 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 S/P colostomy 06/16/2024 Assessment & Plan (09/22/2024 9:45 AM EDT): Continue to monitor ostomy output Assessment & Plan (09/21/2024 10:32 AM EDT): Continue to monitor ostomy output Assessment & Plan (09/20/2024 2:15 PM EDT): Continue to monitor ostomy output S/P colon resection 06/16/2024 Hyponatremia 06/10/2024 Hypomagnesemia 06/10/2024 Assessment & Plan (09/22/2024 9:45 AM EDT): Continue to monitor and replete if needed Assessment & Plan (09/21/2024 10:32 AM EDT): Continue to monitor and replete if needed Assessment & Plan (09/21/2024 8:13 AM EDT): Continue to monitor and replete if needed Assessment & Plan (09/20/2024 2:15 PM EDT): Improved, continue to monitor and replete if needed Transaminitis 06/10/2024 Sinus tachycardia 06/10/2024 Incomplete RBBB 06/10/2024 Tremor 06/10/2024 Post-op pain 05/25/2024 S/P CABG x 4 05/06/2024 Overview (06/14/2024): 05/06 4vCABG w/ Dr. Austin Aspirin, statin, beta stacey Hypertension 05/06/2024 Thrombocytosis 05/04/2024 Hypocalcemia 05/04/2024 Assessment & Plan (09/22/2024 9:45 AM EDT): Asymptomatic Ca corrected for low albumin is borderline normal Assessment & Plan (09/21/2024 10:32 AM EDT): Asymptomatic Ca corrected for low albumin is borderline normal Assessment & Plan (09/21/2024 8:13 AM EDT): Asymptomatic Ca corrected for low albumin is borderline normal Assessment & Plan (09/20/2024 2:15 PM EDT): Asymptomatic Prolonged Q-T interval on ECG 05/04/2024 Overview (05/07/2024): 05/07 EKG reviewed Assessment & Plan (09/22/2024 9:45 AM EDT): Complicates care Avoid medications that could worsen issue Assessment & Plan (09/21/2024 10:32 AM EDT): Complicates care Avoid medications that could worsen issue Assessment & Plan (09/20/2024 2:15 PM EDT): Complicates care Avoid medications that could worsen issue Assessment & Plan (09/19/2024 1:31 PM EDT): Avoid medications that could worsen issue Assessment & Plan (09/19/2024 7:19 AM EDT): Avoid medications that could worsen issue Assessment & Plan (09/19/2024 12:24 AM EDT): -Avoid medications that could worsen issue Hyperlipidemia 05/04/2024 THOM (obstructive sleep apnea) 05/04/2024 Overview (06/14/2024): Essential tremor 05/02/2024 Anxiety and depression 05/01/2024 COPD (chronic obstructive pulmonary disease) Tobacco use 05/01/2024 Overview (06/14/2024): Coronary artery disease with history of myocardial infarction without history of CABG 05/01/2024 Overview (06/14/2024): Patient presented to OSH on 05/01/24 c/o chest pain, LHC reveal mvCAD S/p CABG with Dr. Austin on 05/07 Assessment & Plan (09/22/2024 9:45 AM EDT): Home metoprolol tartrate at half-strength (12.5mg PO BID) Can proceed to full dose when pressures improve Assessment & Plan (09/21/2024 10:32 AM EDT): Resumed home metoprolol tartrate at half-strength (12.5mg PO BID) Can proceed to full dose when pressures improve Assessment & Plan (09/21/2024 8:13 AM EDT): Resumed home metoprolol tartrate at half-strength (12.5mg PO BID) Can proceed to full dose when pressures improve Assessment & Plan (09/20/2024 2:15 PM EDT): Resumed home metoprolol tartrate at half-strength (12.5mg PO BID) Assessment & Plan (09/19/2024 1:31 PM EDT): Holding home metoprolol at this time due to soft blood pressures, resume when able Assessment & Plan (09/19/2024 12:24 AM EDT): Holding home metoprolol at this time due to soft blood pressures, resume when able NSTEMI (non-ST elevated myocardial infarction) 0 05/01/2024 Overview (06/14/2024): Diagnosed at OSH with elevated troponins of 0.05 to 0.23 to 0.16 GERD (gastroesophageal reflux disease) Resolved Problems Problem Noted Date Diagnosed Date Resolved Date Volume depletion, unspecified 09/18/2024 09/20/2024 Assessment & Plan (09/21/2024 10:32 AM EDT): Resolved D/c IVF Assessment & Plan (09/21/2024 8:15 AM EDT): Resolved D/c IVF Assessment & Plan (09/20/2024 2:15 PM EDT): Resolved D/c mIVF Assessment & Plan (09/19/2024 1:31 PM EDT): Receiving mIVF (D5LR) with boluses PRN Hypotension has resolved at this time Assessment & Plan (09/19/2024 12:24 AM EDT): Receiving IV fluid bolus Assessment & Plan (09/18/2024 5:12 PM EDT): Patient not responsive to fluids overnight; not requiring pressors Currently ~3L of fluids given so far Some concern for hypovolemic shock in the setting of this infection Hypotension due to hypovolemia 09/18/2024 09/19/2024 Assessment & Plan (09/21/2024 10:32 AM EDT): Upgrade to ICU Fluid resuscitation Assessment & Plan (09/19/2024 1:31 PM EDT): Upgrade to ICU Fluid resuscitation Assessment & Plan (09/18/2024 5:12 PM EDT): Upgrade to ICU Fluid resuscitation Hyperkalemia 06/21/2024 06/21/2024 Overweight 06/16/2024 06/21/2024 Abdominal [...] 05/06/202405/16 Overview (05/18/2024): Diuresis as clinically indicated Leukocytosis 05/02/2024 09/20/2024 Assessment & Plan (09/21/2024 10:32 AM EDT): Resolved Assessment & Plan (09/20/2024 2:15 PM EDT): Resolved Assessment & Plan (09/19/2024 1:31 PM EDT): Abx as above, trend and monitor Assessment & Plan (09/19/2024 12:24 AM EDT): Abx as above, trend and monitor Colon perforation 05/01/2024 06/21/2024 Overview (06/11/2024): Noted on CT scan 05/23/24 S/p left colectomy and end colostomy 05-23-24 Encounters Date Type Department Care Team Description 10/04/2024 Telephone [facility] [address], [address] [place] [address] Viri Ibrahim 09/17/2024 10:40 PM EDT - 09/23/2024 12:05 PM EDT Hospital Encounter [facility] [address] [place] [address] Betty Garcia MD Griffen, Margaret M, MD Enteritis (Primary Dx) Discharge Disposition: Home or Self Care 09/17/2024 Travel 09/17/2024 Orders Only External Location [address] [place] [address] Provider, External 09/17/2024 Orders Only External Location [address] [place] [address] Provider, External 09/12/2024 Telephone [facility] [address], [address] [place] [address] Lidia Troncoso MD HCN Same Day Appt/Overbook Request 08/22/2024 Results Follow-Up Colorectal Surgery [address] [place] [address] Lidia Troncoso MD 08/21/2024 12:18 PM EDT - 08/21/2024 11:59 PM EDT Hospital Encounter [facility] [address] [place] [id number] ([facility]/HCC); Right lower quadrant abdominal pain Discharge Disposition: Home or Self Care 08/21/2024 10:00 AM EDT Office Visit [facility] [address] [place] [address] Lidia Troncoso MD Colostomy in place ([facility]) (Primary Dx); Right lower quadrant abdominal pain 08/21/2024 Telephone [facility] [address] [place] [address] Lidia Troncoso MD HCN Clinical Concern/Question; HCN Status Update Call #1; HCN Status Update Call #2 08/21/2024 Travel 08/20/2024 Telephone [facility] [address] [place] [address] Lidia Troncoso MD HCN - Patient Message (Reschedule due to transportation ) 08/15/2024 Refill [facility] [address], [address] [place] [address] Ana Luisa Simental RN 08/09/2024 Orders Only External Location [address] [place] [address] Millie Ambrose, 08/07/2024 Orders Only External Location [address] [place] [address] Provider, External 08/07/2024 Telephone [facility] [address] [place] [address] Rina Mason RN 07/31/2024 9:00 AM EDT Office Visit [facility] [address] [place] [address] Lidia Troncoso MD S/P colostomy ([facility]) (Primary Dx); S/P colon resection 07/31/2024 Travel 07/21/2024 Orders Only External Location [address] [place] [address] Sundeep Fisher MD 07/20/2024 Telephone [facility] [address] [place] [address], [address] [place] [address] Ana Luisa Simental RN 07/18/2024 11:00 AM EDT Office Visit [facility] [address] [facility], [address] [place] [address] Maite Austin MD CAD, multiple vessel (Primary Dx); Tobacco use; Anxiety and depression; Chronic obstructive pulmonary disease, unspecified COPD type ([facility]); NSTEMI (non-ST elevated myocardial infarction) ([facility]); THOM (obstructive sleep apnea); S/P CABG x 4; Post-op pain 07/18/2024 9:52 AM EDT - 07/18/2024 11:59 PM EDT Hospital Encounter [facility] [address] [place] [address] CAD, multiple vessel Discharge Disposition: Home or Self Care 07/18/2024 Travel from Last 3 Months Family History Medical History Relation Name Comments Heart disease Father Relation Name Status Comments Father Social History Tobacco Use Types Packs/Day Years [...] living in a residential (including now)? No 09/21/2024 CAGE ASSESSMENT Answer [...] drink first t jaime in the morning (EYE-INTERVENTION ANALYST) to steady your nerves or to get rid of a hangover? 0 09/17/2024 CAGE Questionnaire Score 0 025 Utilities Answer Date Recorded In the past 12 months has th [employer] electric, gas, oil, or water company threatened [...] Mass Index 22.72 09/18/2024 12:23 AM EDT Plan of Treatment Upcoming Encounters Date Type Department Care Team (Late st Contact Info) Description 11/06/2024 11:00 AM EDT Office Visit [facility] [address] [place] [address] Lidia Troncoso MD [address] [place] [address] Health Maintenance Due Date Last [...] 11/03/2019 [facility]-Zoster Vaccines (1 of 2) 11/03/2019 REI-ALFOY-85 Vaccine (1 - season) 2023 [facility]-Influenza Vaccine (#1) 10/15/202412/08, 11/06/2018, 01/13/2007 [facility]- SDOH Screenings 03/24/2025 [facility]-Adult SDOH Screenings 03/24/2025 09/21/2024 [facility]-Depression Screening 07/18/2025 025, 06/29/2024, 06/29/2024 [facility]-DTaP,Tdap,and [...] [employer] Implanted Type Area Geotechnical Operating Engineer Device Identifier Shelf Expiration Date Model / Serial / Lot Pledget Ptfe Hague 4.8mm X 6mm - [id number] Implanted:05/06 by Maite Austin MD at [facility] (Quantity not on file) [id number] / / Procedures Procedure Name Priority Date/Time Associated Diagnosis Comments BASIC METABOLIC PANEL, PLASMA Routine 09/23/2024 1:08 AM EDT MAGNESIUM, PLASMA Routine 09/23/2024 1:0 8 AM EDT CBC W/O DIFFERENTIAL Routine 09/23/2024 1:08 AM EDT PHOSPHORUS, PLASMA Routine 09/23/2024 1: 08 AM EDT POCT GLUCOSE METER UNSOLICITED RESULTS Routine 09/22/2024 9:43 PM EDT POCT GLUCOSE METER UNSOLICITED RESULTS Routine 09/22/2024 1:56 PM EDT POCT GLUCOSE METER UNSOLICITED RESULTS Routine 09/22/2024 8:55 AM EDT POCT GLUCOSE METER UNSOLICITED RESULTS Routine 09/22/2024 3:52 AM EDT BASIC METABOLIC PANEL, PLASMA Routine 09/22/2024 3:51 AM EDT PHOSPHORUS, PLASMA Routine 09/22/2024 3: 51 AM EDT MAGNESIUM, PLASMA Routine 09/22/2024 3:5 1 AM EDT CBC W/O DIFFERENTIAL Routine 09/22/2024 3:51 AM EDT POCT GLUCOSE [...] UNSOLICITED RESULTS Routine 09/20/2024 6:28 AM EDT ALBUMIN, PLASMA Add-On 09/20/2024 1:33 AM EDT PHOSPHORUS, PLASMA Routine 09/20/2024 1: 33 AM EDT MAGNESIUM, PLASMA Routine 09/20/2024 1:3 3 AM EDT CBC W/O DIFFERENTIAL Routine 09/20/2024 1:33 AM EDT BASIC METABOLIC PANEL, PLASMA Routine 09/20/2024 1:33 AM EDT SIMI AURIS SURVEILLANCE BY PCR Routine 09/20/2024 1:33 AM EDT POCT GLUCOSE METER UNSOLICITED RESULTS Routine 09/19/2024 11:05 PM EDT URINE FRANCIS PANEL Routine 09/19/2024 8:30 PM EDT URINALYSIS WITH REFLEX MICROSCOPIC AND CULTURE Routine 09/19/2024 8:30 PM EDT POCT GLUCOSE METER UNSOLICITED RESULTS Routine 09/19/2024 6:10 AM EDT POCT GLUCOSE METER UNSOLICITED RESULTS Routine 09/19/2024 5:27 AM EDT POCT GLUCOSE METER UNSOLICITED RESULTS Routine 09/19/2024 2:31 AM EDT BASIC METABOLIC PANEL, PLASMA Routine 09/19/2024 12:38 AM EDT MAGNESIUM, PLASMA Routine 09/19/2024 12: 38 AM EDT CBC W/O DIFFERENTIAL Routine 09/19/2024 12:38 AM EDT PHOSPHORUS, PLASMA Routine 09/19/2024 12 :38 AM EDT INSERT PERIPHERAL IV Routine 09/18/2024 [...] ECG ADULT STAT 09/18/2024 9:16 AM EDT MAGNESIUM, PLASMA Routine 09/18/2024 2:1 9 AM EDT PHOSPHORUS, PLASMA Routine 09/18/2024 2: 19 AM EDT CBC W/O DIFFERENTIAL Routine 09/18/2024 2:19 AM EDT BASIC METABOLIC PANEL, PLASMA Routine 09/18/2024 2:19 AM EDT CLOSTRIDIUM DIFFICILE EIA Routine 09/18/2024 2:18 AM EDT COMPREHENSIVE GI PANEL BY PCR Routine 09/18/2024 2:18 AM EDT CLOSTRIDIODES (CLOSTRIDIUM) DIFFICILE,PCR Routine 09/18/2024 2:18 AM EDT ECG ADULT Routine 09/18/2024 1:[address] MSK OUTSIDE IMAGES 09/17/2024 6:09 PM EDT XR OUTSIDE IMAGES 09/17/2024 5:[address] ABDOMEN PELVIS W IV CONTRAST STAT 08/21/2024 1:08 PM EDT Colostomy in place ([facility]/HCC) Right lower quadrant abdominal pain CT OUTSIDE [...] 07/18/2024 9:58 AM EDT CAD, multiple vessel from Last 3 Months Results * (ABNORMAL) CBC W/O Differential (09/23/2024 1:08 AM EDT) Only the most recent of6 resultswithin the time period is included. WBC Count 9.97 3.70 - 10.30 10*3/uL LAB HEMATOLOGY METHOD 09/23/2024 1:21 AM EDT [facility] RBC Count 3.98 3.90 - 5.20 10*6/uL LAB HEMATOLOGY METHOD 09/23/2024 1:21 AM EDT [facility] HGB 11.4 11.2 - 15.7 g/dL LAB HEMATOLOGY METHOD 09/23/2024 1:21 AM EDT [facility] HCT 34.5 34.0 - 45.0 % LAB HEMATOLOGY METHOD 09/23/2024 1:21 AM EDT [facility] Platelet Count 444(H) 155 - 369 10*3/uL LAB HEMATOLOGY METHOD 09/23/2024 1:21 AM EDT [facility] MCV 87 79 - 98 fL LAB HEMATOLOGY METHOD 09/23/2024 1:21 AM EDT [facility] MCH 28.6 26.0 - 32.0 pg LAB HEMATOLOGY METHOD 09/23/2024 1:21 AM EDT [facility] MCHC 33.0 30.7 - 35.5 g/dL LAB HEMATOLOGY METHOD 09/23/2024 1:21 AM EDT [facility] RDW 15.3(H) 11.5 - 14.5 % LAB HEMATOLOGY METHOD 09/23/2024 1:21 AM EDT [facility] MPV 9.2 8.8 - 12.5 fL LAB HEMATOLOGY METHOD 09/23/2024 1:21 AM EDT [facility] nRBC 0.0 <=0.0 per 100 WBCs LAB HEMATOLOGY METHOD 09/23/2024 1:21 AM EDT [facility] Blood Venous blood specimen / Unknown Venipuncture / Unknown 09/23/2024 1:08 AM EDT 09/23/2024 1:11 AM EDT us Marysol Mancini MD LAB BLOOD ORDERABLES Final Result [facility] [address] [place] [address] * (ABNORMAL) Phosphorus, Plasma (09/23/2024 1:08 AM EDT) Only the most recent of6 resultswithin the time period is included. Phosphorus, Plasma 4.7(H) 2.5 - 4.5 mg/dL 09/23/2024 1:45 AM EDT [facility] Blood Venous blood specimen / Unknown Venipuncture / Unknown 09/23/2024 1:08 AM EDT 09/23/2024 1:12 AM EDT Marysol Mancini MD LAB BLOOD ORDERABLES Final Result Performing Organization Address City/[facility]/ZIP Co de Phone Number [facility] [address] [place] [address] * Magnesium, Plasma (09/23/2024 1:08 AM EDT) Only the most recent of6 resultswithin the time period is included. Magnesium, Plasma 2.1 1.9 - 2.4 mg/dL 09/23/2024 1:45 AM EDT [facility] Blood Venous blood specimen / Unknown Venipuncture / Unknown 09/23/2024 1:08 AM EDT 09/23/2024 1:12 AM EDT Marysol Mancini MD LAB BLOOD ORDERABLES Final Result Performing Organization Address City/[facility] Co de Phone Number [facility] [address] [place] [address] * (ABNORMAL) Basic Metabolic Panel, Plasma (09/23/2024 1:08 AM EDT) Only the most recent of7 resultswithin the time period is included. Glucose, Plasma 95 74 - 99 mg/dL 09/23/2024 1:45 AM EDT [facility] BUN, Plasma 5(L) 7 - 21 mg/dL 09/23/2024 1:45 AM EDT [facility] Creatinine, Plasma 0.69 0.60 - 1.10 mg/dL 09/23/2024 1:45 AM EDT [facility] BUN/Creatinine Ratio 7 09/23/2024 1:45 AM EDT [facility] Sodium, Plasma 137 136 - 145 mmol/L 09/23/2024 1:45 AM EDT [facility] Potassium, Plasma 4.3 3.6 - 4.9 mmol/L 09/23/2024 1:45 AM EDT [facility] Chloride, Plasma 103 97 - 107 mmol/L 09/23/2024 1:45 AM EDT [facility] CO2, Plasma 25 22 - 29 mmol/L 09/23/2024 1:45 AM EDT [facility] Anion Gap 9 6 - 16 mmol/L 09/23/2024 1:45 AM EDT [facility] Total Calcium, Plasma 8.3(L) 8.9 - 10.2 mg/dL 09/23/2024 1:45 AM EDT [facility] eGFRcr 103.3 mL/min/1.7 3m*2 09/23/2024 1:45 AM EDT [facility] Comment:Reported eGFRcr in m L/min/1.73m2 is based the CKD-EPI 2020 equation that does not use a race coefficient. Blood Venous blood specimen / Unknown Venipuncture / Unknown 09/23/2024 1:08 AM EDT 09/23/2024 1:12 AM EDT us Marysol Mancini MD LAB BLOOD ORDERABLES Final Result [facility] [address] [place] [address] * (ABNORMAL) POCT glucose meter (09/22/2024 9:43 PM EDT) Only the most recent of26 resultswithin the time period is included. POCT Glucose 101(H) 74 - 99 mg/dL [...] for testing. Comment 09/22/2024 9:44 PM EDT [facility] Lure Maker ID Kelvin Yousif 09/22/2024 9:44 PM EDT [facility] Device ID [id number] 09/22/2024 9:44 PM EDT [facility] Specimen Type POC Capillary 09/22/2024 9:44 PM EDT [facility] Blood Capillary blood specimen / Unknown 09/22/2024 9:43 PM EDT 09/22/2024 9:44 PM EDT us Betty Garcia MD LAB POINT OF CARE TEST DOCKED DEVICE UNSOLICITED RESULTS Final Result Performing Organization Address [facility] Co de Phone Number [facility] [address] [place] [address] * Multi Drug Resistance Test (09/20/2024 11:00 AM EDT) Only the most recent of2 resultswithin the time period is included. Culture No growth at day 1 09/21/2024 12:22 PM EDT [facility] Swab (Nares and Jacey Rectal) Non-blood Collection / Unknown 09/20/2024 11:00 AM EDT 09/20/2024 11:14 AM EDT Narrative [facility] - 09/21/2024 12:22 PM EDT This test was developed and its performance characteristics determined by the [facility]. Although the media is FDA-approved, it is not FDA-approved for all specimen types submitted. The FDA has determined that such clearance or approval is not necessary. This test is used for surveillance purposes. It should not be regarded as investigational or for research. The [facility] is certified under the Clinical Laboratory Improvement Amendments of 1988 (CLIA-88) as qualified to perform high complexity clinical laboratory testing. us Tere Snow MD LAB MICROBIOLOGY - GENERAL ORDERABLES Final Result Performing Organization Address City/[facility]/ZIP Co de Phone Number [facility] [address] [place] [address] * Potassium level repeated 2 hours after the total replacement is complete (09/20/2024 9:54 AM EDT) Pathologist [facility] Potassium, Plasma 4.7 3.6 - 4.9 mmol/L 09/20/2024 10:43 AM EDT [facility] Comment:Hemolyzed, result ma y be falsely increased. Blood Venous blood specimen / Unknown Venipuncture / Unknown 09/20/2024 9:54 AM EDT 09/20/2024 9:59 AM EDT Tere Snow MD LAB BLOOD ORDERABLES Final Result Performing Organization Address [facility] Co de Phone Number [facility] [address] [place] [address] * Simi auris Surveillance by PCR (09/20/2024 1:33 AM EDT) [facility] Simi auris PCR Result Not Detected Not Detected 09/20/2024 12:58 PM EDT [facility] Swab (Axilla and Groin) Non-blood Collection / Unknown 09/20/2024 1:33 AM EDT 09/20/2024 3:41 AM EDT Narrative [facility] - 09/20/2024 12:58 PM EDT This PCR assay was developed and its performance characteristics determined by [facility] as appropriate for clinical purposes. This assay has not been cleared or approved by the FDA, but is performed in a CLIA regulated laboratory that is qualified to perform high-complexity testing. Tere Snow MD LAB MICROBIOLOGY - GENERAL ORDERABLES Final Result Performing Organization Address City/[facility] Co de Phone Number [facility] [address] [place] [address] * (ABNORMAL) Albumin (09/20/2024 1:33 AM EDT) Pathologist [facility] Albumin, Plasma 2.6(L) 3.5 - 5.2 g/dL 09/20/2024 7:05 AM EDT [facility] Blood Venous blood specimen / Unknown Venipuncture / Unknown 09/20/2024 1:33 AM EDT 09/20/2024 2:37 AM EDT us Tere Snow MD LAB BLOOD ORDERABLES Final Result Performing Organization Address [facility] Co de Phone Number [facility] [address] [place] [address] * Urine Francis Panel (09/19/2024 8:30 PM EDT) Extra Reflex urine culture not indicated 09/20/2024 5:01 AM EDT [facility] Comment: Previously prelim verified as [...] URINE ORDERABLES Final Result Performing Organization Address [facility] Co de Phone Number [facility] [address] [place] [address] * PERIPHERAL IV (SMARTFORM LINK) (09/18/2024 6:33 PM EDT) Narrative Cristel Encinas, RN - 09/18/2024 6:33 PM EDT Cristel Encinas, RN 09/18/2024 6:38 PM Insert peripheral IV Performed by: Cristel Encinas, RN Authorized by: Tere Snow MD [place] Protocol: Verbal consent obtained?: Yes Risks and [...] ORDERA BLES Final Result BLOOD BANK [address] [place] [address], * (ABNORMAL) Comprehensive metabolic panel (09/18/2024 6:06 PM EDT) Glucose, Plasma 90 74 - 99 mg/dL 09/18/2024 10:34 PM EDT [facility] BUN, Plasma 5(L) 7 - 21 mg/dL 09/18/2024 10:34 PM EDT [facility] Creatinine, Plasma 0.73 0.60 - 1.10 mg/dL 09/18/2024 10:34 PM EDT [facility] BUN/Creatinine Ratio 7 09/18/2024 10:34 PM EDT [facility] Sodium, Plasma 140 136 - 145 mmol/L 09/18/2024 10:34 PM EDT [facility] Potassium, Plasma 3.6 3.6 - 4.9 mmol/L 09/18/2024 10:34 PM EDT [facility] Chloride, Plasma 105 97 - 107 mmol/L 09/18/2024 10:34 PM EDT [facility] CO2, Plasma 25 22 - 29 mmol/L 09/18/2024 10:34 PM EDT [facility] Anion Gap 10 6 - 16 mmol/L 09/18/2024 10:34 PM EDT [facility] Total Calcium, Plasma 8.0(L) 8.9 - 10.2 mg/dL 09/18/2024 10:34 PM EDT [facility] Total Protein 5.0(L) 6.3 - 7.9 g/dL 09/18/2024 10:34 PM EDT [facility] Albumin, Plasma 2.6(L) 3.5 - 5.2 g/dL 09/18/2024 10:34 PM EDT [facility] AST, Plasma 146(H) 10 - 35 U/L 09/18/2024 10:34 PM EDT [facility] ALT, Plasma 86(H) 10 - 35 U/L 09/18/2024 10:34 PM EDT [facility] Alkaline Phosphatase, Plasma 188(H) 35 - 104 U/L 09/18/2024 10:34 PM EDT [facility] Total Bilirubin, Plasma 0.2 0.2 - 1.1 mg/dL 09/18/2024 10:34 PM EDT [facility] eGFRcr 97.9 mL/min/1.7 3m*2 09/18/2024 10:34 PM EDT [facility] Comment:Reported eGFRcr in m L/min/1.73m2 is based the CKD-EPI 2020 equation that does not use a race coefficient. Blood Venous blood specimen / Unknown Venipuncture / Unknown 09/18/2024 6:06 PM EDT 09/18/2024 7:08 PM EDT us Betty Garcia MD LAB BLOOD ORDERABLES Final Result Performing Organization Address [facility]/ZIP Co de Phone Number [facility] [address] [place] [address] * Lactate, venous (09/18/2024 11:16 AM EDT) [facility] Lactate, Venous, Whole Blood 1.0 0.5 - 2.2 mmol/L LAB HEMATOLOGY METHOD 09/18/2024 11:30 AM EDT [facility] Blood Venous blood specimen / Unknown Venipuncture / Unknown 09/18/2024 11:16 AM EDT 09/18/2024 11:27 AM EDT us Tere Snow MD LAB BLOOD ORDERABLES Final Result Performing Organization Address [facility]/ZIP Co de Phone Number [facility] [address] [place] [address] * (ABNORMAL) CBC and differential (09/18/2024 11:16 AM EDT) [facility] WBC Count 6.49 3.70 - 10.30 10*3/uL LAB HEMATOLOGY METHOD 09/18/2024 12:38 PM EDT [facility] RBC Count 3.47(L) 3.90 - 5.20 10*6/uL LAB HEMATOLOGY METHOD 09/18/2024 12:38 PM EDT [facility] HGB 9.8(L) 11.2 - 15.7 g/dL LAB HEMATOLOGY METHOD 09/18/2024 12:38 PM EDT [facility] HCT 30.8(L) 34.0 - 45.0 % LAB HEMATOLOGY METHOD 09/18/2024 12:38 PM EDT [facility] Platelet Count 451(H) 155 - 369 10*3/uL LAB HEMATOLOGY METHOD 09/18/2024 12:38 PM EDT [facility] MCV 89 79 - 98 fL LAB HEMATOLOGY METHOD 09/18/2024 12:38 PM EDT [facility] MCH 28.2 26.0 - 32.0 pg LAB HEMATOLOGY METHOD 09/18/2024 12:38 PM EDT [facility] MCHC 31.8 30.7 - 35.5 g/dL LAB HEMATOLOGY METHOD 09/18/2024 12:38 PM EDT [facility] RDW 14.9(H) 11.5 - 14.5 % LAB HEMATOLOGY METHOD 09/18/2024 12:38 PM EDT [facility] MPV 9.6 8.8 - 12.5 fL LAB HEMATOLOGY METHOD 09/18/2024 12:38 PM EDT [facility] nRBC 0.0 <=0.0 per 100 WBCs LAB HEMATOLOGY METHOD 09/18/2024 12:38 PM EDT [facility] Differential Type Automated LAB HEMATOLOGY METHOD 09/18/2024 12:38 PM EDT [facility] Neutrophils % 45 % LAB HEMATOLOGY METHOD 09/18/2024 12:38 PM EDT [facility] Lymphocytes % 41 % LAB HEMATOLOGY METHOD 09/18/2024 12:38 PM EDT [facility] Monocytes % 9 % LAB HEMATOLOGY METHOD 09/18/2024 12:38 PM EDT [facility] Eosinophils % 4 % LAB HEMATOLOGY METHOD 09/18/2024 12:38 PM EDT [facility] Basophils % 1 % LAB HEMATOLOGY METHOD 09/18/2024 12:38 PM EDT [facility] Immature Granulocytes % 0 % LAB HEMATOLOGY METHOD 09/18/2024 12:38 PM EDT [facility] Neutrophils Absolute 2.85 1.60 - 6.10 10*3/uL LAB HEMATOLOGY METHOD 09/18/2024 12:38 PM EDT [facility] Lymphocytes Absolute 2.67 1.20 - 3.90 10*3/uL LAB HEMATOLOGY METHOD 09/18/2024 12:38 PM EDT [facility] Monocytes Absolute 0.61 0.30 - 0.90 10*3/uL LAB HEMATOLOGY METHOD 09/18/2024 12:38 PM EDT [facility] Eosinophils Absolute 0.26 0.00 - 0.50 10*3/uL LAB HEMATOLOGY METHOD 09/18/2024 12:38 PM EDT [facility] Basophils Absolute 0.08 0.00 - 0.10 10*3/uL LAB HEMATOLOGY METHOD 09/18/2024 12:38 PM EDT [facility] Immature Granulocytes Absolute 0.02 0.00 - 0.06 10*3/uL LAB HEMATOLOGY METHOD 09/18/2024 12:38 PM EDT [facility] Blood Venous blood specimen / Unknown Venipuncture / Unknown 09/18/2024 11:16 AM EDT 09/18/2024 12:01 PM EDT Narrative [facility] - 09/18/2024 12:38 PM EDT Therapeutic decision making should be based on absolute values, rather than percentages. us Betty Garcia MD LAB BLOOD ORDERABLES Final Result [facility] [address] [place] [address] * ECG Adult (09/18/2024 9:16 AM EDT) Only the most recent of3 resultswithin the time period is included. EKG DIAGNOSIS CLASS Abnormal MUSE ECG Ventricular Rate 78 BPM MUSE ECG Atrial Rate 78 BPM MUSE ECG MN Interval 138 ms MUSE ECG QRSD Interval 96 ms MUSE ECG QT Interval 446 ms MUSE ECG QTC Interval 508 ms MUSE ECG P [place]worth 79 degrees MUSE ECG R [place] 59 degrees MUSE ECG T Wave [place]worth 68 degrees MUSE ECG Diagnosis Normal sinus rhythm MUSE ECG Diagnosis Incomplete right bundle branch block MUSE ECG Diagnosis T wave abnormality, consider anterior ischemia MUSE ECG Diagnosis Prolonged QT MUSE ECG Diagnosis Abnormal ECG MUSE ECG Diagnosis MUSE ECG Diagnosis Confirmed by Marlena Zhou ([id number]) on 09/18/2024 2:31:20 PM MUSE ECG 09/18/2024 9:16 AM EDT 09/18/2024 2:31 PM EDT us Betty Garcia MD ECG ORDERABLES Final Resu lt MUSE ECG * Comprehensive GI Panel by PCR (09/18/2024 2:18 AM EDT) Campylobacter PCR Result Not Detected Not Detected 09/18/2024 7:51 AM EDT [facility] Plesiomonas shigelloides PCR Result Not Detected Not Detected 09/18/2024 7:51 AM EDT [facility] Salmonella PCR Result Not Detected Not Detected 09/18/2024 7:51 AM EDT [facility] Vibrio species PCR Result Not Detected Not Detected 09/18/2024 7:51 AM EDT [facility] Vibrio cholerae PCR Result Not Detected Not Detected 09/18/2024 7:51 AM EDT [facility] Yersinia enterocolitica PCR Result Not Detected Not Detected 09/18/2024 7:51 AM EDT [facility] Enteroaggregative E. coli (EAEC) PCR Result Not Detected Not Detected 09/18/2024 7:51 AM EDT [facility] Enteropathogenic E. coli (EPEC) PCR Result Not Detected Not Detected 09/18/2024 7:51 AM EDT [facility] Enterotoxigenic E. coli (ETEC) lt/st PCR Result Not Detected Not Detected 09/18/2024 7:51 AM EDT [facility] Shiga-like Toxin-Producing E.coli (STEC) stx1/stx2 PCR Resu Not Detected Not Detected 09/18/2024 7:51 AM EDT [facility] E coli 0157 PCR Result Not Detected Not Detected 09/18/2024 7:51 AM EDT [facility] Shigella/Enteroinvas alexsandra E. coli (EIEC) PCR Result Not Detected Not Detected 09/18/2024 7:51 AM EDT [facility] Cryptosporidium PCR Result Not Detected Not Detected 09/18/2024 7:51 AM EDT [facility] Cyclospora cayetanensis PCR Result Not Detected Not Detected 09/18/2024 7:51 AM EDT [facility] Entamoeba histolytica PCR Result Not Detected Not Detected 09/18/2024 7:51 AM EDT [facility] Giardia duodenalis (aka Giardia lamblia) PCR Result Not Detected Not Detected 09/18/2024 7:51 AM EDT [facility] Adenovirus F 40/41 PCR Result Not Detected Not Detected 09/18/2024 7:51 AM EDT [facility] Astrovirus PCR Result Not Detected Not Detected 09/18/2024 7:51 AM EDT [facility] Norovirus GI/GII PCR Result Not Detected Not Detected 09/18/2024 7:51 AM EDT [facility] Rotavirus A PCR Result Not Detected Not Detected 09/18/2024 7:51 AM EDT [facility] Sapovirus PCR Result Not Detected Not Detected 09/18/2024 7:51 AM EDT [facility] Stool Rectum structure / Unknown Non-blood Collection / Unknown 09/18/2024 2:18 AM EDT 09/18/2024 3:01 AM EDT Narrative [facility] - 09/18/2024 7:51 AM EDT [...] difficile by PCR assay if clinically indicated. Betty Garcia MD LAB MICROBIOLOGY - GENERAL ORDERABLES Final Result [facility] [address] [place] [address] * (ABNORMAL) Clostridiodes (Clostridium) difficile PCR (09/18/2024 2:18 AM EDT) C difficile PCR toxin B gene DNA Result Detected, Reflex GDH/Toxin antigen test pending, see CDEIA for final result.(A) Not Detected 09/18/2024 4:41 AM EDT [facility] Comment:Reflex GDH/Toxin ant igen test pending, see CDEIA for final result. Stool Rectum structure / Unknown Non-blood Collection / Unknown 09/18/2024 2:18 AM EDT 09/18/2024 3:01 AM EDT Narrative [facility] - 09/18/2024 4:41 AM EDT This test is FDA approved for use with liquid stool specimens. This test is used for clinical purposes. It should not be regarded as investigational or for research. This laboratory is certified under the Clinical Laboratory Improvement Amendments of 1988 (CLIA-88) as qualified to perform high complexity clinical laboratory testing. Betty Garcia MD LAB MICROBIOLOGY - GENERAL ORDERABLES Final Result Performing Organization Address City/[facility]/ZIP Co de Phone Number [facility] [address] [place] [address] * Clostridium difficile EIA (09/18/2024 2:18 AM EDT) C difficile EIA Interpretation C. difficile infection not likely. May represent colonization . 09/18/2024 7:51 AM EDT [facility] Toxin Result Negative Negative 09/18/2024 7:51 AM EDT [facility] GDH Result Positive Negative 09/18/2024 7:51 AM EDT [facility] Stool Rectum structure / Unknown Non-blood Collection / Unknown 09/18/2024 2:18 AM EDT 09/18/2024 3:01 AM EDT Narrative [facility] - 09/18/2024 7:51 AM EDT This toxin/GDH assay was reflexed from a positive C. difficile PCR result. us Betty Garcia MD LAB MICROBIOLOGY - GENERAL ORDERABLES Final Result [facility] [address] [place] [address] * CT MSK OUTSIDE IMAGES (09/17/2024 6:09 PM EDT) Only the most recent of2 resultswithin the time period is included. Anatomical Region Laterality Modality Computed Tomogra phy 09/17/2024 6:09 PM EDT us External Provider IMG CT PROCEDURES Final Result * XR OUTSIDE IMAGES (09/17/2024 5:42 PM EDT) Anatomical Region Laterality Modality Radiographic Leatha ging 09/17/2024 5:42 PM EDT us External Provider IMG XR PROCEDURES Final Result * CT Abdomen Pelvis w IV & [...] MD IMG CT PROCEDURES Final Result * XR Chest 2 Views (07/18/2024 9:58 [...] Austin MD IMG XR PROCEDURES Final Result from Last 3 Months Additional Health Concerns Infection Onset Date Last Indicated C. difficile 09/18/2024 09/18/2024 Insurance [facility] [employer] [facility] MEDICAID Advance Directives * Full Code (Latest Code Status on File) Date Activated Date Inactivated Comments 09/18/2024 12:56 AM 09/23/2024 2:05 PM Question Answer Comments I have reviewed the capacity from the link above and, if needed, have updated to appropriate status: Yes * Full Code Date Activated Date Inactivated Comments 06/04/2024 10:18 AM 06/21/2024 5:46 PM Question Answer Comments I have reviewed the capacity from the link above and, if needed, have updated to appropriate status: Yes * Full Code Date Activated Date Inactivated Comments 05/06/2024 8:27 PM 06/04/2024 10:18 AM * Full Code Date Activated Date Inactivated Comments 05/02/2024 12:06 PM 05/06/2024 8:27 PM Care Teams Food Service Counter Clerk Relationship Specialty Start Date End Date Champ Quiroz MD [address] [address] PCP - General Internal Medicine 06/29/24
--- OUTSIDE RECORDS SUMMARY | 2024-10-11 15:38 | XMS_ITS | Encounter Summary ---
Author Organization Healthcare Address [address] [place] [address] Care Team Providers Care Can Solderer Name Role Phone Champ Quiroz MD Primary Care Provider [phone] Reason for Visit * Reason Onset Date Comments HCN - Patient Message 08/20/2024 Reschedule due to transportation Encounter Details Date Type Department Care Team (Late st Contact Info) Description 08/20/2024 Telephone [facility] General Surgery [address] [place] [address] Lidia Troncoso MD [address] [place] [address] HCN - Patient Message (Reschedule [...] any time in the past 12 m [facility], were you homeless or living in a snf (including now)? No 09/21/2024 CAGE ASSESSMENT Answer [...] drink first t jaime in the morning (EYE-SUPPORT SERVICES SPECIALIST) to steady your nerves or to [...] Date of Assessment Author No Risk Indicated 09/20/2024 8:00 PM EDT Brandie Mason RN * Question Answer Date of Assessment Author 1. Wish to be (Past 1 Month) No 025 8:00 PM EDT Brandie Mason RN 2. Non-Specific Active Suici erica Thoughts (Past 1 Month) No 09/20/2024 8:00 PM EDT Brandie Mason RN 6. [...] Call: Pt requesting a return call to [facility] 08/20 appt. Pt states she only has transportation tomorrow 08/21 or Thursday 08/24 Best contact number and optimal time of day to reach caller: [phone] Note: Please do not reply to this [...] Description 11/06/2024 11:00 AM EDT Office Visit [facility] General Surgery [address] [place] [address] Lidia Troncoso MD [address] [place] [address] documented as of this encounter [...] documented as of this encounter Care Teams Can Solderer Relationship Specialty Start Date End Date Champ Quiroz MD [address] [place] [address] PCP - General Internal Medicine 06/29/24 documented as of this encounter
--- OUTSIDE RECORDS SUMMARY | 2024-10-11 15:38 | XMS_ITS | Patient Health Record ---
Author Organization [facility] Address [address] [place] [address] Care Team Providers Care Inventory Analyst Name Role Phone Michaelle Rivas Primary Care Provider Champ Quiroz Unavailable [phone] Migration, Provider Unavailable Unavailable Allergies Allergen (clinical drug ingredient) Drug/Non Drug Allergy documented on EMR Reaction Allergy Type Onset Date Status LATEX GLOVES (uncoded) Unknown Allergy Active acetaminophen / oxycodone Percocet stomach upset, sweating Drug Allergy Active Results Component Value Reference Range Notes COMPREHENSIVE METABOLIC PANE L (56763) Reviewed date:09/03/2024 09:41:31 AM Interpretation: Performing Lab:MAN, [facility] [id number] [facility], [facility]ck[facility] Wil Bro Notes/Report: NON-FASTING; NON-FASTING GLUCOSE 104 [...] date:09/03/2024 09:41:31 AM Interpretation: Performing Lab:CB, [facility] [address], [facility]ldgGW[address] Wil Bro Notes/Report: NON-FASTING; NON-FASTING WHITE BLOOD [...] MPV 10.0 7.5-12.5 fL ABSOLUTE NEUTROPHILS 4948 6226-2925 cells/uL ABSOLUTE LYMPHOCYTES 2503 850-3900 cells/uL ABSOLUTE MONOCYTES 655 200-950 cells/uL ABSOLUTE EOSINOPHILS 202 15-500 cells/uL ABSOLUTE BASOPHILS 92 0-200 cells/uL NEUTROPHILS 58.9 LYMPHOCYTES 29.8 MONOCYTES 7.8 EOSINOPHILS 2.4 BASOPHILS 1.1 Medications Medication SIG (Take, Route, Frequency, Duration) Notes Start Date End Date Status hydrOXYzine HCl 10 MG 1 tab orally every 8 hours; Duration: 30 days prn Active Benzonatate 200 MG 1 capsule as [...] e a day; Duration: 90 days Active Immunizations Vaccine Route Administration Date Status [...] Status Risk Notes Problem Generalized anxiety disorder (55354025) Generalized anxiety disorder (F41.1) Active confirmed Problem Primary insomnia (1888314) Primary insomnia (F51.01) Active confirmed Problem Psychophysiologic insomnia (468747690) Psychophysiologic insomnia (F51.04) Active confirmed Problem Essential tremor (389510386) Essential tremor (G25.0) Active confirmed Problem Panlobular emphysema (6980617) Panlobular emphysema (J43.1) Active confirmed Problem Left side sciatica (795473302146038) Sciatica, left side (M54.32) Active confirmed Problem Sciatica (16907447) Lumbago with sciatica, right side (M54.41) Active confirmed Problem Sciatica (83943307) Lumbago with sciatica, left side (M54.42) Active confirmed Problem Colostomy present (894237404) Colostomy status (Z93.3) Active confirmed Problem Mixed anxiety and depressive disorder (518460960) Depression with anxiety (F41.8) Active confirmed Problem Anxiety (75153096) Anxiety (F41.9) Active confi rmed Problem Vitamin B12 deficiency (non anemic) (19345727) B12 deficiency (E53.8) Active confirmed Problem Acute exacerbation of chronic obstructive airways disease (441636893) COPD exacerbation (J44.1) Active confirmed Problem Atherosclerosis of coronary artery without angina pectoris (674897861644953) Atherosclerosis of nuiqs[place] coronary artery of n[place] heart without angina pectoris (I25.10) Active confirmed Problem Disorder of skin AND/OR subcutaneous tissue (26579958) Skin lesions (L98.9) Active confirmed Vital Signs Heart Rate 88 /min 10/11/2024 Temperature 97.2 degrees Fahrenheit 10/11/2024 Blood pressure diastolic 70 mm Hg 10/11/2024 Height 5 ft 1 in in 10/11/2024 Blood pressure systolic 124 mm Hg 10/11/2024 Weight 121 lbs 10/11/2024 BMI 22.86 kg/m2 10/11/2024 Encounters Encounter Location Date Provider Diagnosis [facility] [address] [facility] [address] [place] [address] 05/19/2024 Provider Migration Depression with anxiety F41.8 and COPD exacerbation J44.1 [facility] [address] [facility] [address] [place] [address] 10/11/2024 Michaelle McNees Acute cough R05.1 [facility] [address] [address] 10/21/2023 Michaelle McNees Pain in joints of ri ght hand M25.541 and Pain in joints of left hand M25.542 [facility] [address] [address] 12/29/2023 Champ Quiroz Acute bronchitis, unspecified organism J20.9 ; Subacute cough R05.2 and Sciatica, left side M54.32 [facility] [address] [address] 04/20/2024 Michaelle McNees Depression with anxi ety F41.8 and COPD exacerbation J44.1 [facility] [address] [place] [address] 07/02/2024 Champ Quiroz Tremor R25.1 ; Atherosclerosis of nuiqsut coronary artery of n[place] heart without angina pectoris I25.10 ; Anxiety F41.9 ; Hospital discharge follow-up Z09 ; Dysuria R30.0 and Colostomy present Z93.3 [facility] [address] [facility] [address] [place] [address] 07/18/2024 Champ Quiroz Pelvic pain in femal e R10.2 and Panlobular emphysema J43.1 [facility] [address] [facility] [address] [place] [address] 07/30/2024 Champ Quiroz C. difficile colitis A04.72 ; Primary insomnia F51.01 ; Colostomy status Z93.3 and Hospital discharge follow-up Z09 [facility] [address] [facility] [address] [place] [address] 08/20/2024 Champ Quiroz Atherosclerosis of nuiqs[place] coronary artery of n[place] heart without angina pectoris I25.10 ; Colostomy status Z93.3 and Hospital discharge follow-up Z09 [facility] [address] [facility] [address] [place] [address] 08/30/2024 Michaelle Dianees Vertigo R42 ; C. difficile colitis A04.72 and Atherosclerosis of nuiqsut coronary artery of n[place]qs[place] heart without angina pectoris I25.10 [facility] [address] [facility] [address] [place] [address] 10/01/2024 Champ Quiroz Generalized anxiety disorder F41.1 ; Atherosclerosis of nuiqs[place] coronary artery of n[place] heart without angina pectoris I25.10 ; Colostomy status Z93.3 and Hospital discharge follow-up Z09 [facility] [address] [facility] [address] [place] [address] 10/21/2023 Michaelle McNees [facility] [address] [facility] [address] [place] [address] 11/28/2023 Michaelle McNees [facility] [address] [place] [address] 02/06/2024 Michaelle McNees [facility] [address] [place] [address] 04/20/2024 Michaelle McNees [facility] [address] [place] [address] 07/20/2024 Michaelle McNees Hypokalemia E87.6 [facility] [address] [place] [address] 07/20/2024 Michaelle McNees [facility] [address] [place] [address] 07/24/2024 Michaelle McNees [facility] [address] [place] [address] 08/09/2024 Michaelle McNees [facility] [address] [place] [address], [place] [address] 09/03/2024 Michaelle McNees [facility] [address] [place] [address] 09/25/2024 Michaelle McNees Primary insomnia F51 .01 and Enterocolitis K52.9 [facility] [address] [place] [address] 09/25/2024 Champ Quiroz Primary insomnia F51 .01 and Enterocolitis K52.9 [facility] [address] [facility] [address] [place] [address] 10/05/2024 Michaelle McNees Assessments Encounter Date Diagnosis (ICD [...] be helpful for her 07/02/2024 Atherosclerosis of nuiqsut coronary artery of nuiqs[place] heart without angina pectoris (ICD-10 - I25.10) Status post bypass. On appropriate medication 07/18/2024 Pelvic pain in female (ICD-10 - R10.2) MARKER HAND evaluation. Possible ongoing problems from catheter but will have them take a look 07/18/2024 Panlobular emphysema (ICD-10 - J43.1) Stable. Off cigarettes, continue inhalers. 07/20/2024 Hypokalemia (ICD-10 - E87.6) 07/30/2024 C. difficile colitis (ICD-10 - A04.72) Has finished up vancomycin from hospital discharge. Hard to tell if diarrhea is better because of colostomy status but has no pain, fever or abdominal swelling 07/30/2024 Primary insomnia (ICD-10 - F51.01) Trazodone low-dose for insomnia issues. Wellbutrin and citalopram have been helping with anxiety during the day. 08/30/2024 Vertigo (ICD-10 - R42) Reassurance. Discussed [...] - A04.72) Extensive review of [facility] and [facility] records Abdomen soft, nontender Continue Vanc Keep Fu with Dr. Troncoso [facility] 08/20/2024 Atherosclerosis of nuiqsut coronary artery of nuiqsut heart without angina pectoris (ICD-10 - I25.10) Overall doing fairly well. No changes in plan. Stable from a vascular standpoint. 08/20/2024 Colostomy status (ICD-10 - Z93.3) Infection resolved, following up with GI/GI surgery 09/25/2024 Primary insomnia (ICD-10 - F51.01) 09/25/2024 Primary insomnia (ICD-10 - F51.01) 10/01/2024 Generalized anxiety disorder (ICD-10 - F41.1) [...] with the anxiety. We refered her to [facility] and the Medicare office to see if she can get in contact with a therapist and a older adult social work specialist. 10/01/2024 Atherosclerosis of nuiqsut coronary artery of nuiqsut heart without angina pectoris (ICD-10 - I25.10) Overall stable post bypass. On appropriate medications. 10/11/2024 Acute cough (ICD-10 - R05.1) 10/01/2024 Colostomy status (ICD-10 - Z93.3) Hopefully will have reversal soon. Continue to follow with GI. No changes in plan 09/25/2024 Enterocolitis (ICD-10 - K52.9) 09/25/2024 Enterocolitis (ICD-10 - K52.9) 08/20/2024 Hospital discharge follow-up (ICD-10 - Z09) Personally reviewed H&P and discharge summary as available from hospital discharge documentation. Reviewed pertinent labs and test done in the hospital. Personally reconciled medication. 08/30/2024 Atherosclerosis of nuiqsut coronary artery of nuiqsut heart without angina pectoris (ICD-10 - I25.10) Decrease metoprolol for low normal blood pressure and fatigue Keep FU with [facility] cardiology next week 07/30/2024 Colostomy status (ICD-10 - Z93.3) Discussed that she would be a good candidate for reversal, they are meant to be some imaging done to make sure that her intestinal status is viable 07/02/2024 Anxiety (ICD-10 - F41.9) 12/29/2023 Sciatica, [...] done in the hospital. Personally reconciled medication. 10/01/2024 Hospital discharge follow-up (ICD-10 - Z09) No complaints or complications since she has been released from the hospital. She has had no abdominal pain. She has follow up with the surgeons at . Has plans for colostomy reversal. Her problem list has been updated. Her medication list has been reconcilled. 07/02/2024 Hospital discharge follow-up (ICD-10 - Z09) Personally reviewed H&P and discharge summary as available from hospital discharge documentation. Reviewed pertinent labs and test done in the hospital. Personally reconciled medication. 07/02/2024 Dysuria (ICD-10 - R30.0) Trial of Pyridium. Probable post cath issues 07/02/2024 Colostomy present (ICD-10 - Z93.3) Stable. Continue follow-up Plan Of Treatment Pending Test Test Name Order Date X ray : Chest 10/11/2024 MRI : Lumbosacral Spine 05/06/2006 MRI : Lumbosacral Spine 06/17/2006 CT Scan : Abdomen, with contrast CT Scan : Abdomen, with contrast N-cbc 10/13/2006 MRI : Coccyx 06/17/2006 Mammogram : Bilateral 12/08/2021 M-Diarrhea Panel, PCR 01/25/2022 M-Diarrhea Panel, PCR 12/31/2022 Physical Therapy Eval and Treat 10/29/19 Future Test Test Name Order Date BASIC METABOLIC PANEL ([id number]) 07/23/2024 MAGNESIUM (622) 07/23/2024 Next Appt Details Provider Name:Champ Quiroz, 10/31/2024 03:15:00 PM, [address], [place], [address], Insurance Providers Payer Name Payer Address Payer Phone Subscriber Number Group Number Insured Name Patient Relationship to Insured Coverage Start Date Coverage End Date [employer] [address] [address] [place] [address] [id number] [facility] Rere Reese Self - patient is the [...] mg Dexamethasone 4mg Injection 04/20/2024 4 mg Dexamethasone 4mg Injection 10/11/2024 4 mg TRIAMCINOLONE 03/15/2022 1 mL Medical (General) History Medical History History ICD Code hormone replacement therapy depression copd asthma smoker tremors Coronary artery disease, status post CAB G May [address] [facility] Sepsis, bowel ischemia and colostomy Mar at [facility] colitis Surgical History Surgery Date(Month/Year) lt rotator cuff 2020 rt hand surgery 01/2023 colon resection 04/30/24 Hospitalization History Reason Date(Month/Year) 09/2024 [facility]- abd pain 07/2024 Septic 07/24/2024 - heart attach 04/30/2024-06/28/24 [facility] 01/2022
== END 2024-10-11 23:59 | disposition home or self-care (01) ==
LOC: RAD 15:34
PROVIDERS: PCP Internal Medicine Adolescent Medicine; Visit Provider Nurse Practitioner Family
DX: R05.1 Acute cough (principal)
CPT/HCPCS: 71046

== ENCOUNTER 2024-10-17 14:12 | Outpatient (CLI) | payer MEDICAID, SELFPAY ==
--- OUTSIDE RECORDS SUMMARY | 2024-08-21 10:00 | XMS_ITS | Encounter Summary ---
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) Right lower quadrant abdominal pain Procedures CT Abdomen Pelvis w IV & PO Contrast Lidia Troncoso MD [address] [address] Phone: tel: fax: Referral ID Status Reason Start Date Expiration Date Visits Re quested Visits Authorized [id number] Closed 08/21/2024 02/20/2026 1 1 Reason for Visit * Reason Comments Follow-up Encounter Details Date Type Department Care Team (Late st Contact Info) Description 08/21/2024 10:00 AM EDT Office Visit [facility] [address] [place] [address] Lidia Troncoso MD [id number] [place] 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) (Primary Dx); Right [...] in a jail (including now)? No 05/02/2024 AUDIT-C Answer Date [...] the past 12 months has th e [employer], gas, oil, or water company threatened to [...] Doan MD - 08/21/2024 10:00 AM EDT [facility] Colon & Rectal Surgery 08/21/2024 Chief [...] after recent ER visit and hospitalization at [facility]. She developed acute on chronic abdominal pain in the lower abdomen, worse with sitting/standing, for which she sought care. CTA 07/21/24 demonstrated pronounced fok-gp-vqifsl long segment of active ileitis and Luis's [...] was about one year ago, done in [place], reportedly normal. ROS: A complete 14 point review of systems was done with the patient. These are all negative with the exception of what is noted in the HPI. Past Medical History: has a past medical history of Anxiety, COPD (chronic obstructive pulmonary disease) ([facility]) (05/01/2024), Depression, GERD (gastroesophageal reflux disease) (05/01/2024), Hyperkalemia (05/06/2024),On mechanically assisted ventilation ([facility]) (05/06/2024), Tobacco use (05/01/2024), and Tremor (0 [...] Description 11/06/2024 11:00 AM EDT Office Visit [facility] General Surgery [address], [address] [place] [address] Lidia Troncoso MD [address] [place] [address] documented as of this encounter [...] documented as of this encounter Care Teams Member Of The Legislative Council Relationship Specialty Start Date End Date Champ Quiroz MD [address] [place] [address] PCP - General Internal Medicine 06/29/24 documented as of this encounter
--- OUTSIDE RECORDS SUMMARY | 2024-08-21 12:18 | XMS_ITS | Encounter Summary ---
Author Organization Healthcare Address [address] 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) Right lower quadrant abdominal pain Procedures CT Abdomen Pelvis w IV & PO Contrast Lidia Troncoso MD [address] [address] Phone: tel: fax: Referral ID Status Reason Start Date Expiration Date Visits Re quested Visits Authorized [id number] Closed 08/21/2024 02/20/2026 1 1 Reason for Visit * Imaging (Urgent) - Closed Specialty Diagnoses / Procedures Referred By Contac t Referred To Contact Radiology Diagnoses 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) Right lower quadrant abdominal pain Procedures CT Abdomen Pelvis w IV & PO Contrast Lidia Troncoso MD [address] [address] Phone: tel: fax: Referral ID Status Reason Start Date Expiration Date Visits Re quested Visits Authorized [id number] Closed 08/21/2024 02/20/2026 1 1 Encounter Details Date Type Department Care Team (Latest Contact Info) Description 08/21/2024 12:18 PM EDT - 08/21/2024 11:59 PM EDT Hospital Encounter [facility] [address] [place] [address] [address] ([facility]); Right lower quadrant abdominal pain Discharge [...] any time in the past 12 m [facility], were you homeless or [...] In the past 12 months has th [employer], [employer], oil, or water [employer] threatened to shut off services in your [...] by mouth nightly. 30 tablet 2 06/21/2024 traZODone (Desyrel) 50 MG tablet Take 1 [...] nostril if symptoms continue 1 each 06/21/2024 5 potassium chloride CR (Klor-Con M20) 20 MEQ [...] Description 11/06/2024 11:00 AM EDT Office Visit [facility] General Surgery [address] [place] [address] Lidia Troncoso MD [address] [place] [address] documented as of this encounter Goals Goal [...] documented as of this encounter Care Teams Credit Cashier Relationship Specialty Start Date End Date Chapm Quiroz MD [address] [place] [address] PCP - General Internal Medicine 06/29/24 documented as of this encounter
--- OUTSIDE RECORDS SUMMARY | 2024-09-17 22:40 | XMS_ITS | Encounter Summary ---
Author Organization Healthcare Address [address] [place] [address] Care Team Providers Care Shank Sorter Name Role Phone Champ Quiroz MD Primary Care Provider [phone] Reason for Visit * Auth/Cert (Routine) Specialty Diagnoses / Procedures Referred By Contac t Referred To Contact Diagnoses Enteritis hx. colonic ischemia, colostomy in place. Swollen/painful stoma Betty Garcia MD [address] [address] Phone: tel: fax: [facility] [address] [place] [address] Phone: tel: Referral ID Status Reason Start Date Expiration Date Visits Re quested Visits Authorized [id number] 1 1 Encounter Details Date Type Department Care Team (Latest Contact Info) Description 09/17/2024 10:40 PM EDT - 09/23/2024 12:05 PM EDT Hospital Encounter [facility] [address] [place] [id number] Betty Garcia MD [address] [address] Tere Snow MD [address] [address] Enteritis (Primary Dx) Discharge Disposition: Home or Self Care Social History Tobacco Use Types Packs/Day Years Used Date Smoking Tobacco: Former Cigarettes Q uit: 04/30/2024 Smokeless Tobacco: Never Alcohol Use Standard Drinks/Week Comments Not Currently 0 (1 standard drink = 0.6 oz pur e alcohol) PHQ-2 Answer Date Recorded Patient Health Questionnaire-2 Score 1 06/29/2024 PHQ-9 Answer Date Recorded Patient Health Questionnaire-9 Score 1 06/29/2024 Humiliation, Afraid, Rape, and Kick questionnair e Answer Date Recorded Within the last year, have y ou been afraid of your partner or ex-partner? No 09/21/2024 Within the last year, have y ou been humiliated or emotionally abused in other ways by your partner or ex-partner? No Within the last year, have y ou been kicked, hit, slapped, or otherwise physically hurt by your partner or ex-partner? No 09/21/2024 Within the last year, have y ou been raped or forced to have any kind of sexual activity by your partner or ex-partner? No 09/21/2024 AUDIT-C Answer Date Recorded Q1: How often do you have a drink containing alcohol? Never 07/18/2024 Q2: How many drinks containi ng alcohol do you have on a typical day when you are drinking? Patient does not drink Q3: How often do you have si x or more drinks on one occasion? Never 07/18/2024 Hunger Vital Sign Answer Date Recorded Within the past 12 months, y ou worried that your food would run out before you got the money to buy more. Never true 09/22/19 25 Within the past 12 months, t he food you bought just didn't last and you didn't have money to get more. Never true 09/21/2024 PRAPARE - Transportation Answer Date Re corded In the past 12 months, has l ack of transportation kept you from medical appointments or from getting medications? No 09/2024 In the past 12 months, has l ack of transportation kept you from meetings, work, or from getting things needed for daily living? No 09/21/2024 Housing Stability Vital Sign Answer Aguilar e Recorded In the last 12 months, was t here a time when you were not able to pay the mortgage or rent on time? No 09/21/2024 In the past 12 months, how m any times have you moved where you were living? 0 09/21/2024 At any time in the past 12 m [facility], were you homeless or living in a jail (including now)? No 09/21/2024 CAGE ASSESSMENT Answer Date Recorded Cage unable to access Not on file 09/17/2024 Cage max number of drinks Not on file 2024 Cage Beverages a week Not on file 09/17/2024 Have you ever felt you should CUT down on your d rinking? 0 09/17/2024 Have you been ANNOYED by people criticizing your drinking? 0 09/17/2024 Have you felt GUILTY about your drinking? 0 09/17/2024 Have you had a drink first t jaime in the morning ([employer]) to steady your nerves or to get rid of a hangover? 0 09/17/2024 CAGE Questionnaire Score 0 025 Utilities Answer Date Recorded In the past 12 months has th [employer], gas, oil, or water [employer] threatened to shut off services in your home? No 09/21/2024 PHQ-2A Answer Date Recorded Depression Risk 1 07/18/2024 Comments Unknown Sex and Gender Information Value Date Recorded Sex Assigned at Not on file Legal Sex Female 8:00 PM EDT Gender Identity Not on file Sexual Orientation Not on file documented as of this encounter Last Filed Vital Signs Vital Sign Reading Time Taken Comments Blood Pressure 107/66 09/23/2024 11:00 AM EDT Pulse 96 09/23/2024 11:00 AM EDT Temperature 37.2 C (98.9 F) 09/23/2024 11:00 AM EDT Respiratory Rate 18 09/23/2024 11:0 0 AM EDT Oxygen Saturation 96% 09/23/2024 11: 00 AM EDT Inhaled Oxygen Concentration - - Weight 52.5 kg (115 lb 11.9 oz) 025 12:23 AM EDT Height 152 cm (4' 11.84 ) 09/18/2024 12 :23 AM EDT Body Mass Index 22.72 09/18/2024 12:23 AM EDT documented in this encounter Functional Status * Calculated C-SSRS Risk Score (Lifetime/Recent) Answer Date of Assessment Author No Risk Indicated 09/23/2024 7:19 AM EDT Kehinde Andrade RN * Question Answer Date of Assessment Author 1. Wish to be (Past 1 Month) No 025 7:19 AM EDT Kehinde Andrade RN 2. Non-Specific Active Suici erica Thoughts (Past 1 Month) No 09/23/2024 7:19 AM EDT Carlyn Andrade RN 6. Suicidal Behavior (Lifetime) No 7:19 AM EDT Kehinde Andrade RN documented as of this encounter Discharge Instructions * Discharge Instructions* Liz Ha MD - 09/23/2024 8:39 AM EDT Discharge Instructions: Medications: - You should take Tylenol every 6 hours for pain - You should take Ibuprofen every 6 hours for pain -You should take methocarbamol 4 times per day for muscle spasms. - You have been prescribed pain medications to be taken as needed for severe pain. Do NOT take any home prescribed narcotics while taking the ones prescribed at discharge. - You should take the stool softener prescribed as long as you are taking narcotics. - You may resume your previous medications unless otherwise instructed. Nutrition: - You may resume your normal diet as tolerated, focusing on liquids to keep yourself hydrated. Activity: - Walking and climbing stairs is ok and encouraged. You should refrain from any strenuous activity/exercise until your follow up appointment. - You may not drive for 48 hours while taking narcotics. - Activity as tolerated. Potential Issues: - Call the office if you have a fever greater than 101 F - Call the office if you have severe abdominal discomfort, nausea and vomiting, or feeling unwell Follow Up: - You may follow up with us as needed. Questions or Concerns and Appointments If there are questions or concerns after discharge from the hospital, call Leola Montano, Nurse Coordinator between 7am-3pm at [phone]. If it is after hours, weekends, and holidays please call [phone] and ask for the resident family nurse practitioner for Emergency General Surgery. For appointments please call our General Surgery Clinic at [phone]. Medication requests should be made between the hours of 9:00 AM to 3:00 PM Tuesday thru Tuesday. Please note that based upon recent changes to [place] law related to prescribing opioid pain medications, our providers will not provide refills on controlled medications after your hospital discharge following a major surgery or trauma. [place], [place] 201 KAR9:260. documented in this encounter Medications at Time of Discharge acetaminophen (Tylenol) 500 MG tablet Take 2 tablets by mouth every 6 hours. 100 tablet 09/23/2024 aspirin 81 MG chewable tablet Chew 1 tablet daily. 30 tablet 2 07/18/2024 buPROPion XL (Wellbutrin XL) 300 MG 24 hr tablet Take 1 tablet by mouth daily. 04/20/2024 citalopram (CeleXA) 40 MG tablet Take 1 tablet by mouth daily. 12/30/2022 fluticasone (Flonase) 50 MCG/ACT nasal spray Administer 1 spray into each nostril daily. Shake gently. Before first use, prime pump. After use, clean tip and replace cap. hydrOXYzine HCl (Atarax) 10 MG tablet Take 1 tablet by mouth every 8 hours as needed. methocarbamol (Robaxin) 500 MG tablet Take 2 tablets by mouth 4 times a day. 14 tablet 09/23/2024 metoprolol tartrate (Lopressor) 25 MG tablet Take 1.5 tablets by mouth 2 times a day. 90 tablet 08/15/2024 naloxone (Narcan) 4 mg/0.1 mL nasal spray 1. Give 1 spray in nostril for no/slow breathing or cannot wake after opioid use 2. Call 911 3. Repeat in other nostril if symptoms continue 1 each 09/23/2024 oxyCODONE (Roxicodone) 5 MG immediate release tablet Take 1 tablet by mouth every 6 hours as needed for severe pain. 5 tablet 09/23/2024 primidone (Mysoline) 50 MG tablet Take 1 tablet by mouth 2 times a day. rosuvastatin (Crestor) 40 MG tablet Take 1 tablet by mouth nightly. 30 tablet 2 06/21/2024 6 traZODone (Desyrel) 50 MG tablet Take 1 tablet by mouth nightly. 07/30/2024 amoxicillin-clav ulanate XR (Augmentin XR) 1000-62.5 MG 12 hr tabletIndication s:Enteritis Take 2 tablets by mouth 2 times a day for 4 doses. 8 tablet 09/23/2024 5 documented as of this encounter Miscellaneous Notes * Progress Notes - Ching Day RN - 09/23/2024 9:25 AM EDT Case Management Adult Progress Note Rere Reese 53 y.o. female CSN: [id number] Admission: 09/17/2024 10:40 PM Primary Problem: Enteritis Anticipated Discharge Date: 09/23/24 Pharmacy Voucher: Meets 300% [facility]. PA bending . Patient reports no resources to cover cost of essential discharge medications this date. Essential medications for a safe discharge vouchered thru [facility]. Voucher #: [id number] Medications/cost: Augmentin XR 100 mg # 8 Additional Comments Ching Day RN * Kehinde Hebert RN - 09/23/2024 9:01 AM EDT Images from the original note were not included. [id number] Colitis: Care Instructions Overview Colitis is the medical term for swelling (inflammation) of the intestine. It can be caused by different things, such as an infection or loss of blood flow in the intestine. Other causes are problems like Crohn's disease or ulcerative colitis. Symptoms may include diarrhea that may be bloody, belly pain, or a fever. Sometimes symptoms go away without treatment. But you may need treatment, such as medicines, or more tests, such as blood tests or a stool test. Or you may need imaging tests like a CT scan or a colonoscopy. In some cases, the doctor may want to test a sample of tissue from the intestine. This test is called a biopsy. Follow-up care is a rico part of your treatment and safety. Be sure to make and go to all appointments, and call your doctor if you are having problems. It's also a good idea to know your test resultsand keep a list of the medicines you take. How can you care for yourself at home? ? Rest until you feel better. ? When you feel like eating again, start with small amounts of food. ? To prevent dehydration, drink plenty of fluids. Choose water and other clear liquids until you feel better. If you have kidney, heart, or liver disease and have to limit fluids, talk with your doctor before you increase the amount of fluids you drink. ? Be safe with medicines. Take your medicines exactly as prescribed. Call your doctor if you think you are having a problem with your medicine. You will get more details on the specific medicines your doctor prescribes. When should you call for help? Call 911 anytime you think you may need emergency care. For example, call if: ? You passed out (lost consciousness). ? You have severe belly pain. ? Your stools are maroon or very bloody. Call your doctor now or seek immediate medical care if: ? You are dizzy or lightheaded, or feel like you may faint. ? You have trouble breathing or are breathing faster and passing only a little urine. ? You have new or worse belly pain. ? You have a new or higher fever. ? You have signs of dehydration, such as: o Dry eyes and a dry mouth. o Passing only a little urine. o Feeling thirstier than usual. ? You have nausea or vomiting and can't keep fluids down. ? You cannot pass stools or gas. ? You have new or more blood in your stools or your stools are black and tarlike. Watch closely for changes in your health, and be sure to contact your doctor if: ? You have new or worse symptoms. ? You are losing weight. ? You do not get better as expected. Current as of: December 02, 2022 Content Version: 14.0 Care instructions adapted under license by your healthcare professional. If you have questions about a medical condition or this instruction, always ask your healthcare professional. [employer] disclaims any warranty or liability for your use of this information. ?? [id number] [employer]. * Discharge Summary - Ann-Marie Vera MD - 09/23/2024 8:38 AM EDT Hospitalization Admit Date/Time: 09/17/2024 10:40 PM Admitting Attending: Betty Garcia Discharge Date: 09/23/2024 Discharge Attending Physician: Betty Garcia MD PCP name and Address: Champ Quiroz MD [address] / [place] [address] Referring provider name and address: Sundeep Fisher [address] [place] [address] [place] [address] Chief Concern, Brief History of Present Illness, and Hospital Course Ms. Rere Reese is a 53 year old female with PMH significant for anxiety, depression, COPD, tobacco abuse, and NSTEMI s/p CABG x 4 on 05/06, and ex lap w/ left colectomy, end colostomy creation on 05/23 for colonic perforation, drain placement by IR on 06/04 for fluid collection in the abdomen (perisplenic) who presented on 09/17/24 from OSH for concerns of increasing abdominal pain and swe lling around ostomy. Chart review also notable for C diff infection back in August that was reportedly treated. Ultimately, the patient was admitted to the [facility] floor team for IV antibiotics to treat suspected enteritis. On 09/18, she was upgraded to ICU for hypotension unresponsive to fluids and concern for infection-related shock. Many upfront boluses and mIVF were needed to improve her BP. C diff PCR toxin B positive on 09/18/24 consistent with prior infection and colonization. Negative GI panel. In the ICU, she has been HDS and tolerating a regular diet. Home meds were resumed without problems. De-escalated from Zosyn to PO Augmentin on 09/22 with end date of 09/24 for a 7-day total course (started Zosyn 09/18). She remained admitted at a downgraded status for pain control and pt discomfort/concerns about going home. Prior to discharge pt felt comfortable she could tolerate pain at home. At the time of discharge the patient was hemodynamically stable, tolerating PO, voiding spontaneously, normal bowel function via ostomy, mobilizing appropriately, with their pain controlled with PO medication. At this time, the patient has obtained the maximum benefit from the present hospital stay, and so will be discharged to home. Surgeries and Procedures Medication List .. acetaminophen 500 MG tablet Commonly known as: Tylenol Take 2 tablets by mouth every 6 hours. amoxicillin-clavulanate XR 1000-62.5 MG 12 hr tablet Commonly known as: Augmentin XR Take 2 tablets by mouth 2 times a day for 4 doses. aspirin 81 MG chewable tablet Chew 1 tablet daily. buPROPion XL 300 MG 24 hr tablet Commonly known as: Wellbutrin XL Take 1 tablet by mouth daily. citalopram 40 MG tablet Commonly known as: CeleXA Take 1 tablet by mouth daily. fluticasone 50 MCG/ACT nasal spray Commonly known as: Flonase Administer 1 spray into each nostril daily. Shake gently. Before first use, prime pump. After use, clean tip and replace cap. hydrOXYzine HCl 10 MG tablet Commonly known as: Atarax Take 1 tablet by mouth every 8 hours as needed. methocarbamol 500 MG tablet Commonly known as: Robaxin Take 2 tablets by mouth 4 times a day. metoprolol tartrate 25 MG tablet Commonly known as: Lopressor Take 1.5 tablets by mouth 2 times a day. naloxone 4 mg/0.1 mL nasal spray Commonly known as: Narcan 1. Give 1 spray in nostril for no/slow breathing or cannot wake after opioid use 2. Call 911 3. Repeat in other nostril if symptoms continue oxyCODONE 5 MG immediate release tablet Commonly known as: Roxicodone Take 1 tablet by mouth every 6 hours as needed for severe pain. primidone 50 MG tablet Commonly known as: Mysoline Take 1 tablet by mouth 2 times a day. rosuvastatin 40 MG tablet Commonly known as: Crestor Take 1 tablet by mouth nightly. traZODone 50 MG tablet Commonly known as: Desyrel Take 1 tablet by mouth nightly. Where to Get Your Medications These medications were sent to [facility] - [place], [place] - [address], [facility] [id number] acetaminophen 500 MG tablet amoxicillin-clavulanate XR 1000-62.5 MG 12 hr tablet methocarbamol 500 MG tablet naloxone 4 mg/0.1 mL nasal spray oxyCODONE 5 MG immediate release tablet Discharge Diagnosis Medical Problems Active and Resolved Hospital Problems Hospital Coronary artery disease with history of myocardial infarction without history of CABG Overview Addendum 06/14/2024 1:31 PM by Uriah Ricardo PA Patient presented to OSH on 05/01/24 c/o chest pain, LHC reveal mvCAD S/p CABG with Dr. Austin on 05/07 Current Assessment & Plan 09/17/2024 Hospital Encounter Written 09/21/2024 8:13 AM by Cheryl Aguirre MD Resumed home metoprolol tartrate at half-strength (12.5mg PO BID) Can proceed to full dose when pressures improve Hypocalcemia Current Assessment & Plan 09/17/2024 Hospital Encounter Written 09/21/2024 8:13 AM by Cheryl Aguirre MD Asymptomatic Ca corrected for low albumin is borderline normal Prolonged Q-T interval on ECG Overview Signed 05/07/2024 10:07 AM by Miguel Downey MD 05/07 EKG reviewed Current Assessment & Plan 09/17/2024 Hospital Encounter Written 09/19/2024 7:19 AM by Cheryl Aguirre MD Avoid medications that could worsen issue Hypomagnesemia Current Assessment & Plan 09/17/2024 Hospital Encounter Written 09/21/2024 8:13 AM by Cheryl Aguirre MD Continue to monitor and replete if needed S/P colostomy ([facility]) Current Assessment & Plan 09/17/2024 Hospital Encounter Written 09/23/2024 7:04 AM by Ann-Marie Vera MD Continue to monitor ostomy output * (Principal) Enteritis Current Assessment & Plan 09/17/2024 Hospital Encounter Edited 09/21/2024 9:56 AM by Cheryl Aguirre MD Continue empiric antibiotics in high-risk patient (tentative plan for 7 day total course) Switch from IV Zosyn to oral Augmentin Regular diet, fat and fiber restriction Zofran with meals for nausea Negative GI panel, h/o C as below Right lower quadrant abdominal pain Current Assessment & Plan 09/17/2024 Hospital Encounter Written 09/23/2024 7:04 AM by Ann-Marie Vera MD Improving but still present Continue abdominal exams Follow up outpatient with Dr. Troncoso in October for discussion on ostomy reversal and potential scope History of infection of intestine due to Clostridium difficile Current Assessment & Plan 09/17/2024 Hospital Encounter Written 09/23/2024 7:04 AM by Ann-Marie Vera MD C diff PCR positive for toxin consistent with prior infection and colonization Contact precautions in place Enteritis treatment as above RESOLVED: Leukocytosis RESOLVED: Volume depletion, unspecified Current Assessment & Plan 09/17/2024 Hospital Encounter Written 09/21/2024 8:15 AM by Cheryl Aguirre MD Resolved D/c IVF RESOLVED: Hypotension due to hypovolemia Post Discharge Instructions Discharge Instructions: Medications: - You should take Tylenol every 6 hours for pain - You should take Ibuprofen every 6 hours for pain -You should take methocarbamol 4 times per day for muscle spasms. - You have been prescribed pain medications to be taken as needed for severe pain. Do NOT take any home prescribed narcotics while taking the ones prescribed at discharge. - You should take the stool softener prescribed as long as you are taking narcotics. - You may resume your previous medications unless otherwise instructed. Nutrition: - You may resume your normal diet as tolerated, focusing on liquids to keep yourself hydrated. Activity: - Walking and climbing stairs is ok and encouraged. You should refrain from any strenuous activity/exercise until your follow up appointment. - You may not drive for 48 hours while taking narcotics. - Activity as tolerated. Potential Issues: - Call the office if you have a fever greater than 101 F - Call the office if you have severe abdominal discomfort, nausea and vomiting, or feeling unwell Follow Up: - You may follow up with us as needed. Questions or Concerns and Appointments If there are questions or concerns after discharge from the hospital, call Leola Montano, Nurse Coordinator between 7am-3pm at [phone]. If it is after hours, weekends, and holidays please call [phone] and ask for the resident family nurse practitioner for Emergency General Surgery. For appointments please call our General Surgery Clinic at [phone]. Medication requests should be made between the hours of 9:00 AM to 3:00 PM Tuesday thru Tuesday. Please note that based upon recent changes to [place] law related to prescribing opioid pain medications, our providers will not provide refills on controlled medications after your hospital discharge following a major surgery or trauma. [place] KAR9:260. Outpatient Follow-Up Future Appointments Date Time Provider Department Center 10/30/2024 10:45 AM Lidia Troncoso MD [facility] Test Results Pending At Discharge Pending Labs Order Current Status Urinalysis with reflex microscopic (Culture NOT Included) Collected (09/19/242029) Urinalysis with reflex microscopic AND reflex culture (IF UTI SUSPECTED) In process Pertinent Physical Exam At Time of Discharge Physical Exam Vitals reviewed. Constitutional: Appearance: Normal appearance. HENT: Head: Normocephalic. Eyes: Extraocular Movements: Extraocular movements intact. Cardiovascular: Rate and Rhythm: Normal rate and regular rhythm. Pulmonary: Effort: Pulmonary effort is normal. Abdominal: General: Abdomen is flat. There is no distension. Palpations: Abdomen is soft. Tenderness: There is no guarding or rebound. Comments: Minimal tenderness in RLQ, significantly improved Musculoskeletal: Right lower leg: No edema. Left lower leg: No edema. Skin: General: Skin is warm. Capillary Refill: Capillary refill takes less than 2 seconds. Neurological: General: No focal deficit present. Mental Status: She is alert and oriented to person, place, and time. Discharge Disposition/Condition Disposition: Home Condition: Stable (s/sx potential problems absent or manageable) I spent < 30 minutes of patient care and instruction time in preparation for this discharge. Ann-Marie Vera MD PGY-1 Cosigned by Betty Garcia MD at 09/23/2024 8:51 AM EDT Associated attestation - Betty Garcia MD - 09/23/2024 8:51 AM EDT I saw and evaluated the patient with the resident/fellow. I discussed the case with the resident/fellow and agree with the findings and plan as documented. * Care Plan - Kehinde Andrade RN - 09/23/2024 7:45 AM EDT Problem: Adult Inpatient Plan of Care Goal: Plan of Care Review Outcome: Ongoing, Progressing Flowsheets Taken 09/23/2024739 by Kehinde Andrade RN Outcome Evaluation: patient will be free of falls or injury throughout shift Taken 09/20/2024918 by Marysol Lopez RN Progress: improving Plan of Care Reviewed With: patient Goal: Patient-Specific Goal (Individualized) Outcome: Ongoing, Progressing Flowsheets Taken 09/23/2024739 Patient/Family-Specific Goals (Include Timeframe): patient will have pain score of 7 or less throughout shift Taken 09/23/2024718 Individualized Care Needs: pain control Anxieties, Fears or Concerns: pain Goal: Optimal Comfort and Wellbeing Intervention: Monitor Pain and Promote Comfort Flowsheets (Taken 09/23/2024739) Pain Management Interventions: care clustered Problem: Skin Injury Risk Increased Goal: Skin Health and Integrity Intervention: Optimize Skin Protection Flowsheets (Taken 09/23/2024739) Activity Management: activity adjusted per tolerance Pressure Reduction Techniques: frequent weight shift encouraged Pressure Reduction Devices: positioning supports utilized Skin Protection: skin sealant/moisture barrier applied Head of Bed (HOB) Positioning: HOB at 30-45 degrees Problem: Pain Acute Goal: Optimal Pain Control and Function Intervention: Optimize Psychosocial Wellbeing Flowsheets (Taken 09/23/2024739) Supportive Measures: active listening utilized Diversional Activities: smartphone Intervention: Develop Pain Management Plan Flowsheets (Taken 09/23/2024739) Pain Management Interventions: care clustered Problem: Colostomy Goal: Optimal Coping Outcome: Ongoing, Progressing Intervention: Support Psychosocial Response Flowsheets (Taken 09/23/2024739) Supportive Measures: active listening utilized Goal: Absence of Bleeding Outcome: Met Goal: Nausea and Vomiting Relief Outcome: Met Goal: Effective Urinary Elimination Outcome: Met Goal: Effective Oxygenation and Ventilation Outcome: Met Goal: Optimal Stoma Healing Intervention: Monitor and Manage Stoma and Peristomal Skin Flowsheets (Taken 09/23/2024739) Dehiscence Prevention/Management: wound/incision splinting encouraged Peristomal Herniation Prevention: abdomen splinted during cough, movement Skin Protection: skin sealant/moisture barrier applied * Care Plan - Kelvin Yousif RN - 09/23/2024 3:38 AM EDT Problem: Adult Inpatient Plan of Care Goal: Plan of Care Review Outcome: Ongoing, Progressing Flowsheets Taken 09/20/2024918 by Marysol Lopez, RN Progress: improving Plan of Care Reviewed With: patient Taken 09/18/2024 0024 by Mendy Matthews RN Outcome Evaluation: pt arrived to unit from [facility], went over plan of care with pt. Goal: Patient-Specific Goal (Individualized) Outcome: Ongoing, Progressing Flowsheets (Taken 09/22/20241999) Patient/Family-Specific Goals (Include Timeframe): patient will have adequate pain control for the duration of the shift . Individualized Care Needs: pain control Anxieties, Fears or Concerns: pain Goal: Absence of Hospital-Acquired Illness or Injury Outcome: Ongoing, Progressing Intervention: Identify and Manage Fall Risk Flowsheets (Taken 09/22/20241999) Safety Promotion/Fall Prevention: assistive device/personal items within reach Intervention: Prevent Skin Injury Flowsheets Taken 09/22/2024 2200 by Kelvin Yousif RN Body Position: weight shifting Taken 09/22/2024 0800 by Geno Guillory RN Skin Protection: transparent dressing maintained Intervention: Prevent and Manage VTE (Venous Thromboembolism) Risk Flowsheets (Taken 09/23/2024 0200) VTE Prevention/Management: bilateral SCDs (sequential compression devices) off Intervention: Prevent Infection Flowsheets (Taken 09/20/2024918 by Marysol Lopez, RN) Infection Prevention: personal protective equipment utilized rest/sleep promoted single patient room provided hand hygiene promoted Goal: Optimal Comfort and Wellbeing Outcome: Ongoing, Progressing Intervention: Monitor Pain and Promote Comfort Flowsheets (Taken 09/23/2024 0000) Pain Management Interventions: medication (see MAR) Intervention: Provide Person-Centered Care Flowsheets (Taken 09/20/2024918 by Marysol Lopez, RN) Trust Relationship/Rapport: care explained choices provided emotional support provided empathic listening provided questions answered Problem: Adult Inpatient Plan of Care Goal: Patient-Specific Goal (Individualized) Outcome: Ongoing, Progressing Flowsheets (Taken 09/22/20241999) Patient/Family-Specific Goals (Include Timeframe): patient will have adequate pain control for the duration of the shift . Individualized Care Needs: pain control Anxieties, Fears or Concerns: pain Problem: Fall Injury Risk Goal: Absence of Fall and Fall-Related Injury Outcome: Ongoing, Progressing Intervention: Identify and Manage Contributors Flowsheets Taken 09/22/20241125 by Geno Guillory RN Medication Review/Management: medications reviewed Taken 09/20/2024918 by Mayrsol Lopez RN Self-Care Promotion: independence encouraged BADL personal objects within reach meal set-up provided Intervention: Promote Injury-Free Environment Flowsheets (Taken 09/22/20241999) Safety Promotion/Fall Prevention: assistive device/personal items within reach Problem: Skin Injury Risk Increased Goal: Skin Health and Integrity Outcome: Ongoing, Progressing Intervention: Optimize Skin Protection Flowsheets Taken 09/23/2024 0200 by Kelvin Yousif RN Activity Management: activity minimized Head of Bed (HOB) Positioning: HOB at 30-45 degrees Taken 09/22/2024 0800 by Geno Guillory RN Skin Protection: transparent dressing maintained Taken 09/20/2024918 by Marysol Lopez RN Pressure Reduction Techniques: frequent weight shift encouraged heels elevated off bed Pressure Reduction Devices: feet on footrest/footstool foam padding utilized specialty bed utilized Intervention: Promote and Optimize Oral Intake Flowsheets (Taken 09/20/2024918 by Marysol Lopez RN) Oral Nutrition Promotion: rest periods promoted physical activity promoted Nutrition Interventions: diet adjusted diet advanced Problem: Pain Acute Goal: Optimal Pain Control and Function Outcome: Ongoing, Progressing Intervention: Optimize Psychosocial Wellbeing Flowsheets (Taken 09/22/20241125 by Geno Guillory RN) Supportive Measures: active listening utilized decision-making supported goal-setting facilitated problem-solving facilitated positive reinforcement provided self-care encouraged Diversional Activities: smartphone television Spiritual Activities Assistance: affirmation provided spiritual support provided Intervention: Develop Pain Management Plan Flowsheets (Taken 09/23/2024 0000) Pain Management Interventions: medication (see MAR) Intervention: Prevent or Manage Pain Flowsheets Taken 09/22/20241125 by Calandrella, Geno R, astrochemist Review/Management: medications reviewed Taken 09/20/2024918 by Marysol Lopez RN Sensory Stimulation Regulation: quiet environment promoted lighting decreased care clustered Bowel Elimination Promotion: ambulation promoted Sleep/Rest Enhancement: awakenings minimized consistent schedule promoted noise level reduced natural light exposure provided Taken 09/19/20241126 by Lexy Roblero Complementary Therapy: essential oils utilized Problem: Infection Goal: Absence of Infection Signs and Symptoms Outcome: Ongoing, Progressing Intervention: Prevent or Manage Infection Flowsheets Taken 09/22/20241999 by Kelvin Yousif RN Isolation Precautions: precautions maintained Taken 09/20/2024918 by Marysol Lopez RN Infection Management: aseptic technique maintained Fever Reduction/Comfort Measures: lightweight clothing lightweight bedding Problem: Surgery Nonspecified Goal: Absence of Bleeding Outcome: Ongoing, Progressing Intervention: Monitor and Manage Bleeding Flowsheets (Taken 09/20/2024918 by Marysol Lopez, RN) Bleeding Management: dressing monitored Goal: Effective Bowel Elimination Outcome: Ongoing, Progressing Intervention: Enhance Bowel Motility and Elimination Flowsheets (Taken 09/20/2024918 by Marysol Lopez, RN) Bowel Elimination Management: hygiene measures promoted relaxation techniques promoted toileting offered Bowel Motility Enhancement: ambulation promoted fluid intake encouraged Goal: Fluid and Electrolyte Balance Outcome: Ongoing, Progressing Intervention: Monitor and Manage Fluid and Electrolyte Balance Flowsheets (Taken 09/20/2024918 by Marysol Lopez, RN) Fluid/Electrolyte Management: fluids provided fluids adjusted Problem: Colostomy Goal: Optimal Coping Outcome: Ongoing, Progressing Intervention: Support Psychosocial Response Flowsheets (Taken 09/22/20241125 by Geno Guillory, RN) Supportive Measures: active listening utilized decision-making supported goal-setting facilitated problem-solving facilitated positive reinforcement provided self-care encouraged Goal: Absence of Bleeding Outcome: Ongoing, Progressing Intervention: Monitor and Manage Bleeding Flowsheets (Taken 09/20/2024918 by Marysol Lopez RN) Bleeding Management: dressing monitored Goal: Effective Bowel Elimination Outcome: Ongoing, Progressing Intervention: Monitor and Manage Bowel Motility and Elimination Flowsheets (Taken 09/20/2024918 by Marysol Lopez, RN) Bowel Elimination Promotion: ambulation promoted Goal: Fluid, Electrolyte and Nutrition Balance Outcome: Ongoing, Progressing Intervention: Monitor and Manage Fluid and Electrolyte Balance Flowsheets (Taken 09/20/2024918 by Marysol Lopez RN) Fluid/Electrolyte Management: fluids provided fluids adjusted Goal: Absence of Infection Signs and Symptoms Outcome: Ongoing, Progressing Intervention: Prevent or Manage Infection Flowsheets Taken 09/22/20241999 by Kelvin Yousif RN Isolation Precautions: precautions maintained Taken 09/20/2024918 by Marysol Lopez RN Infection Management: aseptic technique maintained Fever Reduction/Comfort Measures: lightweight clothing lightweight bedding Goal: Anesthesia/Sedation Recovery Outcome: Ongoing, Progressing Intervention: Optimize Anesthesia Recovery Flowsheets Taken 09/22/20241999 by Kelvin Yousif RN Safety Promotion/Fall Prevention: assistive device/personal items within reach Taken 09/22/20241125 by Geno Guillory RN Reorientation Measures: calendar in view clock in view familiar social contact encouraged reorientation provided Goal: Optimal Pain Control and Function Outcome: Ongoing, Progressing Intervention: Prevent or Manage Pain Flowsheets Taken 09/23/2024 by Kelvin Yousif RN Pain Management Interventions: medication (see MAR) Taken 09/22/20241125 by Geno Guillory RN Diversional Activities: smartphone television Taken 09/19/20241126 by Lexy Roblero Complementary Therapy: essential oils utilized Goal: Nausea and Vomiting Relief Outcome: Ongoing, Progressing Goal: Effective Urinary Elimination Outcome: Ongoing, Progressing Goal: Effective Oxygenation and Ventilation Outcome: Ongoing, Progressing Goal: Optimal Stoma Healing Outcome: Ongoing, Progressing * Assessment & Plan Note - Tom Hudson MD - 09/22/2024 1:46 PM EDT Associated Problem(s): Right lower quadrant abdominal pain Improving but still present Continue abdominal exams Follow up outpatient with Dr. Troncoso in October for discussion on ostomy reversal and potential scope * Assessment & Plan Note - Tom Hudson MD - 09/22/2024 1:46 PM EDT Associated Problem(s): Enteritis Continue Augmentin for a 7-day total course (end date 09/24), deescalated from Zosyn (09/18-09/21) Regular diet, fat and fiber restriction Zofran for nausea Lomotil for liquid stools, abdominal pain Negative GI panel, h/o C as below * Assessment & Plan Note - Tom Hudson MD - 09/22/2024 9:45 AM EDT Associated Problem(s): Coronary artery disease with history of myocardial infarction without history of CABG Home metoprolol tartrate at half-strength (12.5mg PO BID) Can proceed to full dose when pressures improve * Assessment & Plan Note - Tom Hudson MD - 09/22/2024 9:45 AM EDT Associated Problem(s): History of infection of intestine due to Clostridium difficile C diff PCR positive for toxin consistent with prior infection and colonization Contact precautions in place Enteritis treatment as above * Assessment & Plan Note - Tom Hudson MD - 09/22/2024 9:45 AM EDT Associated Problem(s): S/P colostomy ([facility]) Continue to monitor ostomy output * Assessment & Plan Note - Tom Hudson MD - 09/22/2024 9:45 AM EDT Associated Problem(s): Prolonged Q-T interval on ECG Complicates care Avoid medications that could worsen issue * Assessment & Plan Note - Tom Hudson MD - 09/22/2024 9:45 AM EDT Associated Problem(s): Hypocalcemia Asymptomatic Ca corrected for low albumin is borderline normal * Assessment & Plan Note - Tom Hudson MD - 09/22/2024 9:45 AM EDT Associated Problem(s): Hypomagnesemia Continue to monitor and replete if needed * Progress Notes - Tom Hudson MD - 09/22/2024 9:37 AM EDT Surgical ICU Daily Progress Note 09/22/24 Rere Cruz Hugh HPI 53 yo female with PMH significant for anxiety, depression, COPD, tobacco abuse, NSTEMI s/p CABG x 4on 05/06, and ex lap w/ left colectomy, end colostomy creation on 05/23 for colonic perforation, drain placement by IR on 06/04 for fluid collection in the abdomen (perisplenic) who presented on 09/17/24 from OSH for concerns of increasing abdominal pain and swelling around ostomy. Admitted for Enteritis with IV abx. C diff PCR toxin B positive on 09/18/24 consistent with prior infection. Negative GI panel. Upgraded to ICU for hypotension unresponsive to fluids. In the ICU, she has been HDS, tolerating diet advancement, and reporting decreased pain. Interval: ICU downgrade orders placed 09/20/24. Pain well controlled, tolerating diet with some nausea. Switched to oral antibiotics 09/21 to complete a 7 day course. Woke up this morning complaining of lower abdominal pain, not improved with oxy 5mg. Received 1x Dilaudid. Pain is similar to prior episodes during admission. She states ostomy output is more liquid than usual still. Patient anxious about going home with possibility of coming back to the hospital again and her duration of illness and hospitalization. Edited by: Tom Husdon MD at 09/22/2024 1346 Relevant review of systems was obtained as able and is negative unless stated above in HPI. Vital signs: Visit Vitals BP 104/75 (BP Location: Left arm, Patient Position: Lying) Pulse 83 Temp 36.7 ??C (98.1 ??F) (Oral) Resp (!) 28 Ht 1.52 m (4' 11.84 ) Wt 52.5 kg (115 lb 11.9 oz) SpO2 93% BMI 22.72 kg/m?? Smoking Status Former BSA 1.49 m?? Intake/Output Summary (Last 24 hours) at 09/22/2024 1346 Last data filed at 09/22/2024 0600 Gross per 24 hour Intake 125 ml Output -- Net 125 ml Physical Exam: Physical Exam Constitutional: General: She is not in acute distress. Comments: Appears older than stated age. HENT: Head: Normocephalic and atraumatic. Eyes: Extraocular Movements: Extraocular movements intact. Cardiovascular: Rate and Rhythm: Normal rate and regular rhythm. Pulmonary: Effort: Pulmonary effort is normal. No respiratory distress. Abdominal: General: Abdomen is flat. Palpations: Abdomen is soft. Tenderness: There is abdominal tenderness. Comments: RLQ colostomy bag, draining brown liquid stool. Tenderness mid and right lower abdomen. Skin: General: Skin is warm and dry. Neurological: Mental Status: She is alert and oriented to person, place, and time. Psychiatric: Mood and Affect: Mood is anxious. Behavior: Behavior normal. Lines/Drains/Tubes: Patient Lines/Drains/Airways Status Active Airway None Output by Drain (mL) 09/20/24 07 - 09/20/24 1859 09/20/24 190 - 09/21/24 0659 09/21/24 07 - 09/21/24 1859 09/21/24 190 - 09/22/24 0659 09/22/24 07 - 09/22/24 1346 Requested LDAs do not have output data documented. Labs in last 18 hours: CBC WBC 9.01 Hb 10.4 (L) Plt 447 (H) Hct 32.6 (L) ANC ?? INR ??, PTT ??, Anti-Xa ?? BMP Na 140 Cl 106 BUN <3 (L) Glu 90 K 3.6 Co2 25 Cr 0.67 Ca 7.9 (L) iCa ?? Mg 1.7 (L), Phos 4.7 (H) Lactate ?? LFT AST ?? AlkPhos ?? T Prot ?? ALK ?? Bili ?? Alb ?? D.Bili ?? Lab Trends: H/H Results from last 7 days Lab Units 09/22/24 0351 09/20/24 0133 09/19/24 0038 HEMOGLOBIN g/dL 10.4* 9.6* 10.1* HEMATOCRIT % 32.6* 29.4* 31.8* INR Cr Results from last 7 days Lab Units 09/22/24 0351 09/20/24 0133 09/19/24 0038 CREATININE mg/dL 0.67 0.64 0.74 Medications reviewed. Vital signs reviewed. Labs reviewed. Radiography reviewed. Assessment and Plan: Assessment & Plan Enteritis Present on Admission: Yes Continue Augmentin for a 7-day total course (end date 09/24), deescalated from Zosyn (09/18-09/21) Regular diet, fat and fiber restriction Zofran for nausea Lomotil for liquid stools, abdominal pain Negative GI panel, h/o C as below Right lower quadrant abdominal pain Present on Admission: Yes Improving but still present Continue abdominal exams Follow up outpatient with Dr. Troncoso in October for discussion on ostomy reversal and potential scope Coronary artery disease with history of myocardial infarction without history of CABG Present on Admission: Not Applicable Home metoprolol tartrate at half-strength (12.5mg PO BID) Can proceed to full dose when pressures improve History of infection of intestine due to Clostridium difficile Present on Admission: Yes C diff PCR positive for toxin consistent with prior infection and colonization Contact precautions in place Enteritis treatment as above S/P colostomy (CMS/HCC) Present on Admission: Not Applicable Continue to monitor ostomy output Prolonged Q-T interval on ECG Present on Admission: Yes Complicates care Avoid medications that could worsen issue Hypocalcemia Present on Admission: Yes Asymptomatic Ca corrected for low albumin is borderline normal Hypomagnesemia Present on Admission: Yes Continue to monitor and replete if needed Non-Hospital Problems Anxiety and depression Overview Deleted 06/14/2024 1:35 PM by Uriah Ricardo PA COPD (chronic obstructive pulmonary disease) ([facility]) Overview Deleted 06/14/2024 1:34 PM by Uriah Ricardo PA Tobacco use Overview Addendum 06/14/2024 1:35 PM by Uriah Ricardo PA NSTEMI (non-ST elevated myocardial infarction) ([facility]) Overview Addendum 06/14/2024 1:31 PM by Uriah Ricardo PA Diagnosed at OSH with elevated troponins of 0.05 to 0.23 to 0.16 GERD (gastroesophageal reflux disease) Overview Deleted 06/14/2024 1:34 PM by Uriah Ricardo PA Essential tremor Thrombocytosis Hyperlipidemia Overview Deleted 06/14/2024 1:33 PM by Uriah Ricardo PA THOM (obstructive sleep apnea) Overview Addendum 06/14/2024 1:35 PM by Uriah Ricardo PA S/P CABG x 4 Overview Addendum 06/14/2024 1:32 PM by Uriah Ricardo PA 05/06 4vCABG w/ Dr. Austin Aspirin, statin, beta stacey Hypertension Overview Deleted 06/14/2024 1:33 PM by Uriah Ricardo PA Post-op pain Overview Deleted 06/14/2024 1:33 PM by Uriah Ricardo PA Hyponatremia Transaminitis Sinus tachycardia Incomplete RBBB Tremor Hypertriglyceridemia Hypoalphalipoproteinemia S/P colon resection BMI 22.0-22.9, adult To Do: [ ] Augmentin course through 09/24 evening (full 7 day course) - Increased Robaxin from 500mg to 1000mg PO QID for pain. - Start Lomotil for liquid stools, abdominal pain - Monitor for hypotension after restarting home metoprolol at half-dose, tolerating so far - Continue to monitor glucose after initial hypoglycemic episode - Continue oral antibiotics (Augmentin) for a total of 7 days of antibiotic coverage - Follow up with Dr. Troncoso in October for ostomy reversal and potential scope Dispo: - Pending reassessment tomorrow for abdominal pain and patient's concerns about going home and needing to come back - ICU downgrade orders placed Edited by: Tom Hudson MD at 09/22/2024 1345 Tom Hudson MD Cosigned by Betty Garcia MD at 09/23/2024 10:23 AM EDT Associated attestation - Betty Garcia MD - 09/23/2024 10:23 AM EDT I saw and evaluated the patient with the resident/fellow. I discussed the case with the resident/fellow and agree with the findings and plan as documented. * Care Plan - Brandie Mason RN - 09/22/2024 4:15 AM EDT Problem: Adult Inpatient Plan of Care Goal: Plan of Care Review Outcome: Ongoing, Progressing Flowsheets Taken 09/20/2024918 by Marysol Lopez RN Progress: improving Plan of Care Reviewed With: patient Taken 09/18/2024 0024 by Mendy Matthews RN Outcome Evaluation: pt arrived to unit from [facility], went over plan of care with pt. Goal: Patient-Specific Goal (Individualized) Outcome: Ongoing, Progressing Flowsheets (Taken 09/21/20241999) Patient/Family-Specific Goals (Include Timeframe): pt will have adequate paiin control during the shift Individualized Care Needs: pain control Anxieties, Fears or Concerns: pain Goal: Absence of Hospital-Acquired Illness or Injury Outcome: Ongoing, Progressing Intervention: Identify and Manage Fall Risk Flowsheets (Taken 09/21/20241999) Safety Promotion/Fall Prevention: activity supervised clutter-free environment maintained fall prevention program maintained lighting adjusted nonskid shoes/slippers when out of bed room organization consistent safety round/check completed Intervention: Prevent Skin Injury Flowsheets Taken 09/22/2024399 by Brandie Mason RN Body Position: weight shifting Taken 09/20/2024918 by Marysol Lopez, RN Skin Protection: transparent dressing maintained pulse oximeter probe site changed Intervention: Prevent and Manage VTE (Venous Thromboembolism) Risk Flowsheets (Taken 09/22/2024 0400) VTE Prevention/Management: bilateral SCDs (sequential compression devices) on Intervention: Prevent Infection Flowsheets (Taken 09/20/2024918 by Marysol Lopez, RN) Infection Prevention: personal protective equipment utilized rest/sleep promoted single patient room provided hand hygiene promoted Goal: Optimal Comfort and Wellbeing Outcome: Ongoing, Progressing Intervention: Monitor Pain and Promote Comfort Flowsheets (Taken 09/21/2024 2347) Pain Management Interventions: medication (see MAR) Intervention: Provide Person-Centered Care Flowsheets (Taken 09/20/2024918 by Marysol Lopez, RN) Trust Relationship/Rapport: care explained choices provided emotional support provided empathic listening provided questions answered Problem: Fall Injury Risk Goal: Absence of Fall and Fall-Related Injury Outcome: Ongoing, Progressing Intervention: Identify and Manage Contributors Flowsheets (Taken 09/20/2024918 by Marysol Lopez, RN) Medication Review/Management: medications reviewed Self-Care Promotion: independence encouraged BADL personal objects within reach meal set-up provided Intervention: Promote Injury-Free Environment Flowsheets (Taken 09/21/20241999) Safety Promotion/Fall Prevention: activity supervised clutter-free environment maintained fall prevention program maintained lighting adjusted nonskid shoes/slippers when out of bed room organization consistent safety round/check completed Problem: Skin Injury Risk Increased Goal: Skin Health and Integrity Outcome: Ongoing, Progressing Intervention: Optimize Skin Protection Flowsheets Taken 09/22/2024399 by Brandie Mason RN Head of Bed (HOB) Positioning: HOB at 30-45 degrees Taken 09/21/20241999 by Brandie Mason RN Activity Management: activity adjusted per tolerance Taken 09/20/2024918 by Marysol Lopez, RN Pressure Reduction Techniques: frequent weight shift encouraged heels elevated off bed Pressure Reduction Devices: feet on footrest/footstool foam padding utilized specialty bed utilized Skin Protection: transparent dressing maintained pulse oximeter probe site changed Intervention: Promote and Optimize Oral Intake Flowsheets (Taken 09/20/2024918 by Marysol Lopez, RN) Oral Nutrition Promotion: rest periods promoted physical activity promoted Nutrition Interventions: diet adjusted diet advanced Problem: Pain Acute Goal: Optimal Pain Control and Function Outcome: Ongoing, Progressing Intervention: Optimize Psychosocial Wellbeing Flowsheets (Taken 09/20/2024918 by Marysol Lopez, RN) Supportive Measures: active listening utilized decision-making supported Diversional Activities: television Spiritual Activities Assistance: affirmation provided spiritual support provided Intervention: Develop Pain Management Plan Flowsheets (Taken 09/21/2024 2347) Pain Management Interventions: medication (see MAR) Intervention: Prevent or Manage Pain Flowsheets Taken 09/20/2024918 by Marysol Lopez, RN Sensory Stimulation Regulation: quiet environment promoted lighting decreased care clustered Bowel Elimination Promotion: ambulation promoted Sleep/Rest Enhancement: awakenings minimized consistent schedule promoted noise level reduced natural light exposure provided Medication Review/Management: medications reviewed Taken 09/19/2024 1127 by Lexy Roblero Complementary Therapy: essential oils utilized Problem: Infection Goal: Absence of Infection Signs and Symptoms Outcome: Ongoing, Progressing Intervention: Prevent or Manage Infection Flowsheets Taken 09/21/20241999 by Brandie Mason RN Isolation Precautions: precautions maintained contact Taken 09/20/2024918 by Marysol Lopez RN Infection Management: aseptic technique maintained Fever Reduction/Comfort Measures: lightweight clothing lightweight bedding Problem: Surgery Nonspecified Goal: Absence of Bleeding Outcome: Ongoing, Progressing Intervention: Monitor and Manage Bleeding Flowsheets (Taken 09/20/2024918 by Marysol Lopez, RN) Bleeding Management: dressing monitored Goal: Effective Bowel Elimination Outcome: Ongoing, Progressing Intervention: Enhance Bowel Motility and Elimination Flowsheets (Taken 09/20/2024918 by Marysol Lopez, RN) Bowel Elimination Management: hygiene measures promoted relaxation techniques promoted toileting offered Bowel Motility Enhancement: ambulation promoted fluid intake encouraged Goal: Fluid and Electrolyte Balance Outcome: Ongoing, Progressing Intervention: Monitor and Manage Fluid and Electrolyte Balance Flowsheets (Taken 09/20/2024918 by Marysol Lopez, RN) Fluid/Electrolyte Management: fluids provided fluids adjusted * Progress Notes - Umu Londono RN - 09/21/2024 2:49 PM EDT Case Management Adult Initial Progress Note Rere Reese 53 y.o. female CSN: [id number] Admission: 09/17/2024 10:40 PM Primary Problem: Enteritis Live Hanger reviewed chart and spoke with patient at bedside to complete this Initial Case Management Assessment. PCP: Champ Quiroz MD Emergency Contact: Extended Emergency Contact Information Primary Emergency Contact: janeth mcknight Mobile Relation: Daughter Preferred language: Mongolian Foil Spooler needed? No Secondary Emergency Contact: Tony Reese Mobile Relation: Son Insurance: Primary Visit Coverage Payer Plan Sponsor Code Group Number Group Name [employer] Primary Visit Coverage Subscriber Subscriber ID Subscriber Name Subscriber SSN Subscriber Address [id number] RERE REESE [id number] [place] [address] Patient information: Lives with/provides care for aunt at: [address] [place] [address] Patient discharging to parents' home: [address] [place] [address] Patient will have 24HR care available if needed (parents and has sister that lives very closeby) Primary Caregiver: Self Support System: Immediate family Daily Living Activities: Functional Status: Independent Living Arrangements: Family (Patient plans to discharge to her parents' home) Type of Residence: Private residence Smoker in the Home?: Yes Current DME: Equipment Currently Used at Home: walker, rolling Income Information: Income Source: Unknown (Patient reports no income at this time.) Income/Expense Information: (Meets 300% FPG) Housing Circumstances-Z Codes: Housing Circumstances (select all that apply): Low Income (101-300% Federal Poverty Guidlines) - Z596 Anticipated Discharge Date: TBD Patient's Discharge Goal: Patient/Family Anticipates Transition to: home with family Assistance Available at Discharge: Availability of Care Givers (#Hours): 24 hours Discharge Transport: Transportation Anticipated: family or friend will provide Follow Up Transport: Transportation Needed to Follow up Appoinments: Family/Friend will Provide Home Health / Home Infusion / Outpatient Dialysis Services: Living Will/Advance Directive/Power of Entry Level Project Engineer /Guardian: Have you reviewed your Advance Directive and is it valid for this stay?: No Advance Directive: Patient does not have advance directive Information Provided on Healthcare Directives: No Pre-existing DNR/DNI Order: No Patient Requests Assistance: No Additional Comments: Per primary treatment team, patient is not medically ready to discharge at this time. JORGE will continue to follow and assist with discharge needs. Umu Londono, RN * Assessment & Plan Note - Tere Snow MD - 09/21/2024 10:32 AM EDT Associated Problem(s): Enteritis Continue empiric antibiotics in high-risk patient (tentative plan for 7 day total course) Switch from IV Zosyn to oral Augmentin Regular diet, fat and fiber restriction Zofran with meals for nausea Negative GI panel, h/o C as below * Assessment & Plan Note - Tere Snow MD - 09/21/2024 10:32 AM EDT Associated Problem(s): Right lower quadrant abdominal pain Improving Continue abdominal exams Follow up outpatient with Dr. Troncoso for further workup * Assessment & Plan Note - Tere Snow MD - 09/21/2024 10:32 AM EDT Associated Problem(s): Coronary artery disease with history of myocardial infarction without history of CABG Resumed home metoprolol tartrate at half-strength (12.5mg PO BID) Can proceed to full dose when pressures improve * Assessment & Plan Note - Tere Snow MD - 09/21/2024 10:32 AM EDT Associated Problem(s): History of infection of intestine due to Clostridium difficile C diff PCR positive for toxin consistent with prior infection and colonization Contact precautions in place Enteritis treatment as above * Assessment & Plan Note - Tere Snow MD - 09/21/2024 10:32 AM EDT Associated Problem(s): S/P colostomy ([facility]) Continue to monitor ostomy output * Assessment & Plan Note - Tere Snow MD - 09/21/2024 10:32 AM EDT Associated Problem(s): Prolonged Q-T interval on ECG Complicates care Avoid medications that could worsen issue * Assessment & Plan Note - Tere Snow MD - 09/21/2024 10:32 AM EDT Associated Problem(s): Hypocalcemia Asymptomatic Ca corrected for low albumin is borderline normal * Assessment & Plan Note - Tere Snow MD - 09/21/2024 10:32 AM EDT Associated Problem(s): Hypomagnesemia Continue to monitor and replete if needed * Assessment & Plan Note - Tere Snow MD - 09/21/2024 10:32 AM EDT Associated Problem(s): Leukocytosis (Resolved 09/20/2024) Resolved * Assessment & Plan Note - Tere Snow MD - 09/21/2024 10:32 AM EDT Associated Problem(s): Hypotension due to hypovolemia (Resolved 09/19/2024) Upgrade to ICU Fluid resuscitation * Assessment & Plan Note - Tere Snow MD - 09/21/2024 10:32 AM EDT Associated Problem(s): Volume depletion, unspecified (Resolved 09/20/2024) Resolved D/c IVF * Care Plan - Marysol Lopez RN - 09/21/2024 9:20 AM EDT Problem: Adult Inpatient Plan of Care Goal: Plan of Care Review Outcome: Ongoing, Progressing Flowsheets (Taken 09/20/2024 0919) Progress: improving Plan of Care Reviewed With: patient Goal: Patient-Specific Goal (Individualized) Outcome: Ongoing, Progressing Flowsheets (Taken 09/21/2024799) Patient/Family-Specific Goals (Include Timeframe): pt will have adequate pain control/mobility Individualized Care Needs: pain control/mobility Anxieties, Fears or Concerns: pain Goal: Absence of Hospital-Acquired Illness or Injury Outcome: Ongoing, Progressing Intervention: Identify and Manage Fall Risk Flowsheets (Taken 09/21/2024917) Safety Promotion/Fall Prevention: activity supervised assistive device/personal items within reach clutter-free environment maintained lighting adjusted Intervention: Prevent Skin Injury Flowsheets Taken 09/21/2024799 Body Position: weight shifting Taken 09/20/2024918 Skin Protection: transparent dressing maintained pulse oximeter probe site changed Intervention: Prevent and Manage VTE (Venous Thromboembolism) Risk Flowsheets (Taken 09/21/2024799) VTE Prevention/Management: bilateral lower extremity foot pump device off SCDs (sequential compression devices) off patient refused intervention Intervention: Prevent Infection Flowsheets (Taken 09/20/2024918) Infection Prevention: personal protective equipment utilized rest/sleep promoted single patient room provided hand hygiene promoted Goal: Optimal Comfort and Wellbeing Outcome: Ongoing, Progressing Intervention: Monitor Pain and Promote Comfort Flowsheets (Taken 09/21/2024917) Pain Management Interventions: medication (see MAR) pillow support provided relaxation techniques promoted position adjusted Intervention: Provide Person-Centered Care Flowsheets (Taken 09/20/2024918) Trust Relationship/Rapport: care explained choices provided emotional support provided empathic listening provided questions answered Problem: Fall Injury Risk Goal: Absence of Fall and Fall-Related Injury Outcome: Ongoing, Progressing Intervention: Identify and Manage Contributors Flowsheets (Taken 09/20/2024918) Medication Review/Management: medications reviewed Self-Care Promotion: independence encouraged BADL personal objects within reach meal set-up provided Intervention: Promote Injury-Free Environment Flowsheets (Taken 09/21/2024917) Safety Promotion/Fall Prevention: activity supervised assistive device/personal items within reach clutter-free environment maintained lighting adjusted Problem: Skin Injury Risk Increased Goal: Skin Health and Integrity Outcome: Ongoing, Progressing Intervention: Optimize Skin Protection Flowsheets Taken 09/21/2024799 Activity Management: activity adjusted per tolerance Head of Bed (HOB) Positioning: HOB at 30-45 degrees Taken 09/20/2024918 Pressure Reduction Techniques: frequent weight shift encouraged heels elevated off bed Pressure Reduction Devices: feet on footrest/footstool foam padding utilized specialty bed utilized Skin Protection: transparent dressing maintained pulse oximeter probe site changed Intervention: Promote and Optimize Oral Intake Flowsheets (Taken 09/20/2024918) Oral Nutrition Promotion: rest periods promoted physical activity promoted Nutrition Interventions: diet adjusted diet advanced Problem: Pain Acute Goal: Optimal Pain Control and Function Outcome: Ongoing, Progressing Intervention: Optimize Psychosocial Wellbeing Flowsheets (Taken 09/20/2024918) Supportive Measures: active listening utilized decision-making supported Diversional Activities: television Spiritual Activities Assistance: affirmation provided spiritual support provided Intervention: Develop Pain Management Plan Flowsheets (Taken 09/21/2024917) Pain Management Interventions: medication (see MAR) pillow support provided relaxation techniques promoted position adjusted Intervention: Prevent or Manage Pain Flowsheets (Taken 09/20/2024918) Sensory Stimulation Regulation: quiet environment promoted lighting decreased care clustered Bowel Elimination Promotion: ambulation promoted Sleep/Rest Enhancement: awakenings minimized consistent schedule promoted noise level reduced natural light exposure provided Medication Review/Management: medications reviewed Problem: Infection Goal: Absence of Infection Signs and Symptoms Outcome: Ongoing, Progressing Intervention: Prevent or Manage Infection Flowsheets Taken 09/21/2024799 Isolation Precautions: precautions maintained protective Taken 09/20/2024918 Infection Management: aseptic technique maintained Fever Reduction/Comfort Measures: lightweight clothing lightweight bedding Problem: Surgery Nonspecified Goal: Absence of Bleeding Outcome: Ongoing, Progressing Intervention: Monitor and Manage Bleeding Flowsheets (Taken 09/20/2024918) Bleeding Management: dressing monitored Goal: Effective Bowel Elimination Outcome: Ongoing, Progressing Intervention: Enhance Bowel Motility and Elimination Flowsheets (Taken 09/20/2024918) Bowel Elimination Management: hygiene measures promoted relaxation techniques promoted toileting offered Bowel Motility Enhancement: ambulation promoted fluid intake encouraged Goal: Fluid and Electrolyte Balance Outcome: Ongoing, Progressing Intervention: Monitor and Manage Fluid and Electrolyte Balance Flowsheets (Taken 09/20/2024918) Fluid/Electrolyte Management: fluids provided fluids adjusted * Assessment & Plan Note - Cheryl Aguirre MD - 09/21/2024 8:15 AM EDT Associated Problem(s): Volume depletion, unspecified (Resolved 09/20/2024) Resolved D/c IVF * Assessment & Plan Note - Cheryl Aguirre MD - 09/21/2024 8:14 AM EDT Associated Problem(s): Enteritis Continue empiric antibiotics in high-risk patient (tentative plan for 7 day total course) Switch from IV Zosyn to oral Augmentin Regular diet, fat and fiber restriction Zofran with meals for nausea Negative GI panel, h/o C as below * Assessment & Plan Note - Cheryl Aguirre MD - 09/21/2024 8:13 AM EDT Associated Problem(s): Hypomagnesemia Continue to monitor and replete if needed * Assessment & Plan Note - Cheryl Aguirre MD - 09/21/2024 8:13 AM EDT Associated Problem(s): Hypocalcemia Asymptomatic Ca corrected for low albumin is borderline normal * Assessment & Plan Note - Cheryl Aguirre MD - 09/21/2024 8:13 AM EDT Associated Problem(s): Coronary artery disease with history of myocardial infarction without history of CABG Resumed home metoprolol tartrate at half-strength (12.5mg PO BID) Can proceed to full dose when pressures improve * Progress Notes - Cheryl Aguirre MD - 09/21/2024 7:50 AM EDT Surgical ICU Daily Progress Note 09/21/24 Rere Reese HPI 53 yo female with PMH significant for anxiety, depression, COPD, tobacco abuse, NSTEMI s/p CABG x 4on 05/06, and ex lap w/ left colectomy, end colostomy creation on 05/23 for colonic perforation, drain placement by IR on 06/04 for fluid collection in the abdomen (perisplenic) who presented on 09/17/24 from OSH for concerns of increasing abdominal pain and swelling around ostomy. Admitted for Enteritis with IV abx. C diff PCR toxin B positive on 09/18/24 consistent with prior infection. Negative GI panel. Upgraded to ICU for hypotension unresponsive to fluids. In the ICU, she has been HDS, tolerating diet advancement, and reporting decreased pain. Interval: Tolerating regular diet with some nausea associated with solids. Stable after restarting home meds.ICU downgrade orders placed 09/20/24. mIVF stopped yesterday, pt with SBPs in the upper 80s and 90s. Pain well controlled. 09/21: On exam this morning, patient endorses minimal pain overnight. Patient was reassured that her nausea with eating should go away as her GI infection begins to heal. Discussed the utility in f/u with GI to discuss other diagnostic tests including a scope to look for IBD, amongst others. Will hold off on restarting her full dose of metoprolol given her softer pressures overnight. Switching to oral antibiotics today with the tentative plan for discharge in the next couple of days, pending tolerance of oral medication and full diet Edited by: Tere Snow MD at 09/21/2024 1031 Relevant review of systems was obtained as able and is negative unless stated above in HPI. Vital signs: Visit Vitals BP 111/63 Pulse 79 Temp 36.9 ??C (98.4 ??F) (Oral) Resp 18 Ht 1.52 m (4' 11.84 ) Wt 52.5 kg (115 lb 11.9 oz) SpO2 94% BMI 22.72 kg/m?? Smoking Status Former BSA 1.49 m?? Intake/Output Summary (Last 24 hours) at 09/21/2024 0956 Last data filed at 09/21/2024 0600 Gross per 24 hour Intake 2775 ml Output 250 ml Net 2525 ml Physical Exam: Physical Exam Constitutional: General: She is not in acute distress. Appearance: She is not ill-appearing or toxic-appearing. Comments: Appears older than stated age HENT: Head: Normocephalic and atraumatic. Mouth/Throat: Mouth: Mucous membranes are moist. Pharynx: Oropharynx is clear. Eyes: Extraocular Movements: Extraocular movements intact. Cardiovascular: Rate and Rhythm: Normal rate and regular rhythm. Pulmonary: Effort: Pulmonary effort is normal. No respiratory distress. Abdominal: General: Abdomen is flat. There is no distension. Palpations: Abdomen is soft. Tenderness: There is abdominal tenderness (Minimal tenderness to the area under her ostomy bag). Comments: Colostomy in place draining brown, liquid stool Musculoskeletal: General: Normal range of motion. Cervical back: Normal range of motion. Skin: General: Skin is warm and dry. Neurological: General: No focal deficit present. Mental Status: She is alert. Mental status is at baseline. Gait: Gait normal. Psychiatric: Mood and Affect: Mood normal. Behavior: Behavior normal. Lines/Drains/Tubes: Patient Lines/Drains/Airways Status Active Airway None Output by Drain (mL) 09/19/24 0700 - 09/19/24 1859 09/19/24 1900 - 09/20/24 0659 09/20/24 07 - 09/20/24 1859 09/20/24 1900 - 09/21/24 0659 09/21/24 0700 - 09/21/24 0956 Requested LDAs do not have output data [...] Results from last 7 days Lab Units 09/20/24 0133 09/19/24 0038 09/18/24 1116 HEMOGLOBIN g/dL 9.6* 10.1* 9.8* HEMATOCRIT % 29.4* 31.8* 30.8* INR Cr Results from last 7 days Lab Units 09/20/24 0133 09/19/24 0038 09/18/24 1806 CREATININE mg/dL 0.64 0.74 0.73 Radiology: No new imaging to review this morning. Medications reviewed. Vital signs reviewed. Labs reviewed. Radiography reviewed. Assessment and Plan: Assessment & Plan Enteritis Continue empiric antibiotics in high-risk patient (tentative plan for 7 day total course) Switch from IV Zosyn to oral Augmentin Regular diet, fat and fiber restriction Zofran with meals for nausea Negative GI panel, h/o C as below Right lower quadrant abdominal pain Improving Continue abdominal exams Follow up outpatient with Dr. Troncoso for further workup Coronary artery disease with history of myocardial infarction without history of CABG Resumed home metoprolol tartrate at half-strength (12.5mg PO BID) Can proceed to full dose when pressures improve History of infection of intestine due to Clostridium difficile C diff PCR positive for toxin consistent with prior infection and colonization Contact precautions in place Enteritis treatment as above S/P colostomy ([facility]) Continue to monitor ostomy output Prolonged Q-T interval on ECG Complicates care Avoid medications that could worsen issue Hypocalcemia Asymptomatic Ca corrected for low albumin is borderline normal Hypomagnesemia Continue to monitor and replete if needed Leukocytosis (Resolved: 09/20/2024) Resolved Hypotension due to hypovolemia (Resolved: 09/19/2024) Upgrade to ICU Fluid resuscitation Volume depletion, unspecified (Resolved: 09/20/2024) Resolved D/c IVF Non-Hospital Problems Anxiety and depression Overview Deleted 06/14/2024 1:35 PM by Uriah Ricardo PA COPD (chronic obstructive pulmonary disease) ([facility]) Overview Deleted 06/14/2024 1:34 PM by Uriah Ricardo PA Tobacco use Overview Addendum 06/14/2024 1:35 PM by Uriah Ricardo PA NSTEMI (non-ST elevated myocardial infarction) ([facility]) Overview Addendum 06/14/2024 1:31 PM by Uriah Ricardo PA Diagnosed at OSH with elevated troponins of 0.05 to 0.23 to 0.16 GERD (gastroesophageal reflux disease) Overview Deleted 06/14/2024 1:34 PM by Uriah Ricardo PA Essential tremor Thrombocytosis Hyperlipidemia Overview Deleted 06/14/2024 1:33 PM by Uriah Ricardo PA THOM (obstructive sleep apnea) Overview Addendum 06/14/2024 1:35 PM by Uriah Ricardo PA S/P CABG x 4 Overview Addendum 06/14/2024 1:32 PM by Uriah Ricardo PA 05/06 4vCABG w/ Dr. Austin Aspirin, statin, beta stacey Hypertension Overview Deleted 06/14/2024 1:33 PM by Uriah Ricardo PA Post-op pain Overview Deleted 06/14/2024 1:33 PM by Uriah Ricardo PA Hyponatremia Transaminitis Sinus tachycardia Incomplete RBBB Tremor Hypertriglyceridemia Hypoalphalipoproteinemia S/P colon resection BMI 22.0-22.9, adult To Do: [ ] Downgrade order in, monitor for bed change [ ] Restart full metoprolol dose when pressures are better [ ] Oral antibiotics to continue through 09/24 evening (full 7 day course) [ ] Morning labs: CBC, BMP - Monitor for hypotension after restarting home metoprolol at half-dose; consider going to full dose tomorrow depending on pressures throughout today and overnight - Continue to monitor glucose after initial hypoglycemic episode - Start oral antibiotics - Augmentin, continue for a 7 day course - Follow up with Dr. Troncoso in October for ostomy reversal and potential scope Dispo: - Pending response to regular diet, home meds, stopping IVF, and pain control with expected discharge to home Edited by: Tere Snow MD at 09/21/2024 1031 Cheryl Aguirre MD Cosigned by Tere Snow MD at 09/21/2024 10:32 AM EDT Associated attestation - Tere Snow MD - 09/21/2024 10:32 AM EDT I saw and evaluated the patient with the resident/fellow. I discussed the case with the resident/fellow and agree with the findings and plan as documented. Tere Snow MD, FACS stoper Trauma Acute Care Surgery * Care Plan - Brandie Mason RN - 09/21/2024 5:02 AM EDT Problem: Adult Inpatient Plan of Care Goal: Plan of Care Review Outcome: Ongoing, Progressing Flowsheets Taken 09/20/2024918 by Marysol Lopez RN Progress: improving Plan of Care Reviewed With: patient Taken 09/18/2024 0024 by Mendy Matthews RN Outcome Evaluation: pt arrived to unit from [facility], went over plan of care with pt. Goal: Patient-Specific Goal (Individualized) Outcome: Ongoing, Progressing Flowsheets (Taken 09/20/20241999) Patient/Family-Specific Goals (Include Timeframe): pt will have adequate pain control during the shift Individualized Care Needs: pain control Anxieties, Fears or Concerns: pain Goal: Absence of Hospital-Acquired Illness or Injury Outcome: Ongoing, Progressing Intervention: Identify and Manage Fall Risk Flowsheets (Taken 09/20/20241999) Safety Promotion/Fall Prevention: activity supervised fall prevention program maintained clutter-free environment maintained lighting adjusted nonskid shoes/slippers when out of bed room organization consistent safety round/check completed Intervention: Prevent Skin Injury Flowsheets Taken 09/21/2024399 by Brandie Mason RN Body Position: weight shifting Taken 09/20/2024918 by Marysol Lopez, RN Skin Protection: transparent dressing maintained pulse oximeter probe site changed Intervention: Prevent and Manage VTE (Venous Thromboembolism) Risk Flowsheets (Taken 09/21/2024399) VTE Prevention/Management: bilateral SCDs (sequential compression devices) on Intervention: Prevent Infection Flowsheets (Taken 09/20/2024918 by Marysol Lopez, RN) Infection Prevention: personal protective equipment utilized rest/sleep promoted single patient room provided hand hygiene promoted Goal: Optimal Comfort and Wellbeing Outcome: Ongoing, Progressing Intervention: Monitor Pain and Promote Comfort Flowsheets (Taken 09/21/2024400) Pain Management Interventions: medication (see MAR) Intervention: Provide Person-Centered Care Flowsheets (Taken 09/20/2024918 by Marysol Lopez, RN) Trust Relationship/Rapport: care explained choices provided emotional support provided empathic listening provided questions answered Problem: Fall Injury Risk Goal: Absence of Fall and Fall-Related Injury Outcome: Ongoing, Progressing Intervention: Identify and Manage Contributors Flowsheets (Taken 09/20/2024918 by Marysol Lopez, RN) Medication Review/Management: medications reviewed Self-Care Promotion: independence encouraged BADL personal objects within reach meal set-up provided Intervention: Promote Injury-Free Environment Flowsheets (Taken 09/20/20241999) Safety Promotion/Fall Prevention: activity supervised fall prevention program maintained clutter-free environment maintained lighting adjusted nonskid shoes/slippers when out of bed room organization consistent safety round/check completed Problem: Skin Injury Risk Increased Goal: Skin Health and Integrity Outcome: Ongoing, Progressing Intervention: Optimize Skin Protection Flowsheets Taken 09/21/2024399 by Brandie Mason RN Head of Bed (HOB) Positioning: HOB at 30 degrees Taken 09/20/20241999 by Brandie Mason RN Activity Management: activity adjusted per tolerance Taken 09/20/2024918 by Marysol Lopez, RN Pressure Reduction Techniques: frequent weight shift encouraged heels elevated off bed Pressure Reduction Devices: feet on footrest/footstool foam padding utilized specialty bed utilized Skin Protection: transparent dressing maintained pulse oximeter probe site changed Intervention: Promote and Optimize Oral Intake Flowsheets (Taken 09/20/2024918 by Marysol Lopez, RN) Oral Nutrition Promotion: rest periods promoted physical activity promoted Nutrition Interventions: diet adjusted diet advanced Problem: Pain Acute Goal: Optimal Pain Control and Function Outcome: Ongoing, Progressing Intervention: Optimize Psychosocial Wellbeing Flowsheets (Taken 09/20/2024918 by Marysol Lopez, RN) Supportive Measures: active listening utilized decision-making supported Diversional Activities: television Spiritual Activities Assistance: affirmation provided spiritual support provided Intervention: Develop Pain Management Plan Flowsheets (Taken 09/21/2024400) Pain Management Interventions: medication (see MAR) Intervention: Prevent or Manage Pain Flowsheets Taken 09/20/2024918 by Marysol Lopez, RN Sensory Stimulation Regulation: quiet environment promoted lighting decreased care clustered Bowel Elimination Promotion: ambulation promoted Sleep/Rest Enhancement: awakenings minimized consistent schedule promoted noise level reduced natural light exposure provided Medication Review/Management: medications reviewed Taken 09/19/2024 1127 by Lexy Roblero Complementary Therapy: essential oils utilized Problem: Infection Goal: Absence of Infection Signs and Symptoms Outcome: Ongoing, Progressing Intervention: Prevent or Manage Infection Flowsheets Taken 09/20/20241999 by Brandie Mason RN Isolation Precautions: precautions maintained contact Taken 09/20/2024918 by Marysol Lopez RN Infection Management: aseptic technique maintained Fever Reduction/Comfort Measures: lightweight clothing lightweight bedding Problem: Surgery Nonspecified Goal: Absence of Bleeding Outcome: Ongoing, Progressing Intervention: Monitor and Manage Bleeding Flowsheets (Taken 09/20/2024918 by Marysol Lopez, RN) Bleeding Management: dressing monitored Goal: Effective Bowel Elimination Outcome: Ongoing, Progressing Intervention: Enhance Bowel Motility and Elimination Flowsheets (Taken 09/20/2024918 by Marysol Lopez, RN) Bowel Elimination Management: hygiene measures promoted relaxation techniques promoted toileting offered Bowel Motility Enhancement: ambulation promoted fluid intake encouraged Goal: Fluid and Electrolyte Balance Outcome: Ongoing, Progressing Intervention: Monitor and Manage Fluid and Electrolyte Balance Flowsheets (Taken 09/20/2024918 by Marysol Lopez RN) Fluid/Electrolyte Management: fluids provided fluids adjusted * Query Clarification Note - Tere Snow MD - 09/20/2024 2:16 PM EDT Physician Clarification Please review the following and provide your response below. Patient is a 53y/o female with enteritis being treated with IV antibiotics. She developed hypotension. Concern for shock documented 09/18/24 Trauma Surgery Progress note. Please clarify the documentation of concern for shock: [x]Shock was present and is now resolved, please specify type of shock: []Septic [x]Hypovolemic []Shock was ruled out []Other, (please specify) Clinical Indicators: 09/18/24 0657 VS Flowsheet: BP: 70/50 MAP: 60 09/18/24 0730 VS Flowsheet: BP: 74/46 MAP: 55 09/18/24 1100 VS Flowsheet: BP: 79/47 MAP: 58 09/18/24 Trauma Surgery Progress note: -Patient not responsive to fluids overnight; not requiring pressors. -Currently ~3L of fluids given so far. -Some concern for hypovolemic shock in the setting of this infection. -Hypotension due to hypovolemia: Upgrade to ICU. Fluid resuscitation. Fluid resuscitation and monitoring for correction of hypotension. 09/18/24 General Surgery Significant Event note: Persistent hypotension with volume resuscitation overnight, so SICU team called for upgrade. On arrival to bedside, patient in NAD, appears peaked and pale. 09/19/24 Trauma Surgery Progress note: Volume depletion, unspecified. Receiving mIVF (D5LR) with boluses PRN. Hypotension has resolved at this time. This documentation will become part of the patient's medical record. * Assessment & Plan Note - Tere Snow MD - 09/20/2024 2:15 PM EDT Associated Problem(s): History of infection of intestine due to Clostridium difficile C diff PCR positive for toxin consistent with prior infection and colonization Contact precautions in place Enteritis treatment as above * Assessment & Plan Note - Tere Snow MD - 09/20/2024 2:15 PM EDT Associated Problem(s): Enteritis Continue empiric antibiotic tx (Zosyn) in high-risk patient (tentative plan for 7 day total course) Advance to regular diet after tolerating full liquids Simethicone PRN for nausea Negative GI panel, h/o C as below * Assessment & Plan Note - Tere Snow MD - 09/20/2024 2:15 PM EDT Associated Problem(s): Leukocytosis (Resolved 09/20/2024) Resolved * Assessment & Plan Note - Tere Snow MD - 09/20/2024 2:15 PM EDT Associated Problem(s): Volume depletion, unspecified (Resolved 09/20/2024) Resolved D/c mIVF * Assessment & Plan Note - Tere Snow MD - 09/20/2024 2:15 PM EDT Associated Problem(s): Right lower quadrant abdominal pain Improving Continue abdominal exams * Assessment & Plan Note - Tere Snow MD - 09/20/2024 2:15 PM EDT Associated Problem(s): Coronary artery disease with history of myocardial infarction without history of CABG Resumed home metoprolol tartrate at half-strength (12.5mg PO BID) * Assessment & Plan Note - Tere Snow MD - 09/20/2024 2:15 PM EDT Associated Problem(s): Prolonged Q-T interval on ECG Complicates care Avoid medications that could worsen issue * Assessment & Plan Note - Tere Snow MD - 09/20/2024 2:15 PM EDT Associated Problem(s): Hypocalcemia Asymptomatic * Assessment & Plan Note - Tere Snow MD - 09/20/2024 2:15 PM EDT Associated Problem(s): Hypomagnesemia Improved, continue to monitor and replete if needed * Assessment & Plan Note - Tere Snow MD - 09/20/2024 2:15 PM EDT Associated Problem(s): S/P colostomy (CMS/HCC) Continue to monitor ostomy output * Progress Notes - Tom Hudson MD - 09/20/2024 9:28 AM EDT Surgical ICU Daily Progress Note 09/20/24 Rere Reese HPI 53 yo female with PMH significant for anxiety, depression, COPD, tobacco abuse, NSTEMI s/p CABG x 4on 05/06, and ex lap w/ left colectomy, end colostomy creation on 05/23 for colonic perforation, drain placement by IR on 06/04 for fluid collection in the abdomen (perisplenic) who presented on 09/17/24 from OSH for concerns of increasing abdominal pain and swelling around ostomy. Admitted for Enteritis with IV abx. C diff PCR toxin B positive on 09/18/24 consistent with prior infection. Negative GI panel. Upgraded to ICU for hypotension unresponsive to fluids. In the ICU, she has been HDS, tolerating diet advancement, and reporting decreased pain. Interval: ON: PRN dilaudid x1 early in the evening for sharp breakthrough pain. Adjustments made to scheduledtylenol, robaxin, and Toradol. Patient states pain is well-controlled this morning and denies nausea, vomiting. Edited by: Tom Hudson MD at 09/20/2024 0923 Relevant review of systems was obtained as able and is negative unless stated above in HPI. Vital signs: Visit Vitals BP 130/74 Pulse 89 Temp 36.7 ??C (98.1 ??F) (Oral) Resp 17 Ht 1.52 m (4' 11.84 ) Wt 52.5 kg (115 lb 11.9 oz) SpO2 93% BMI 22.72 kg/m?? Smoking Status Former BSA 1.49 m?? Intake/Output Summary (Last 24 hours) at 09/20/2024 0953 Last data filed at 09/20/2024 0600 Gross per 24 hour Intake 1200 ml Output 200 ml Net 1000 ml Physical Exam: Physical Exam Constitutional: General: She is not in acute distress. Comments: Appears older than stated age. HENT: Head: Normocephalic and atraumatic. Eyes: Extraocular Movements: Extraocular movements intact. Cardiovascular: Rate and Rhythm: Normal rate and regular rhythm. Pulmonary: Effort: Pulmonary effort is normal. No respiratory distress. Abdominal: General: Abdomen is flat. There is no distension. Palpations: Abdomen is soft. Tenderness: There is abdominal tenderness. Comments: Minimal lower abdominal tenderness, improved from prior. Colostomy in RLQ draining brown liquid. Skin: General: Skin is warm and dry. Neurological: General: No focal deficit present. Mental Status: She is alert and oriented to person, place, and time. Psychiatric: Mood and Affect: Mood normal. Behavior: Behavior normal. Lines/Drains/Tubes: Patient Lines/Drains/Airways Status Active Airway None Output by Drain (mL) 09/18/24 0700 - 09/18/24 1859 09/18/24 1900 - 09/19/24 0659 09/19/24 07 - 09/19/24 1859 09/19/24 190 - 09/20/24 0659 09/20/24 07 - 09/20/24 0953 Requested LDAs do not have output data documented. Labs in last 18 hours: CBC WBC 10.06 Hb 9.6 (L) Plt 413 (H) Hct 29.4 (L) ANC ?? INR ??, PTT ??, Anti-Xa ?? BMP Na 139 Cl 105 BUN <3 (L) Glu 93 K 3.3 (L) Co2 26 Cr 0.64 Ca 7.8 (L) iCa ?? Mg 1.9, Phos 4.1 Lactate ?? LFT AST ?? AlkPhos ?? T Prot ?? ALK ?? Bili ?? Alb ?? D.Bili ?? Lab Trends: H/H Results from last 7 days Lab Units 09/20/24 0133 09/19/24 0038 09/18/24 1116 HEMOGLOBIN g/dL 9.6* 10.1* 9.8* HEMATOCRIT % 29.4* 31.8* 30.8* INR Cr Results from last 7 days Lab Units 09/20/24 0133 09/19/24 0038 09/18/24 1806 CREATININE mg/dL 0.64 0.74 0.73 Medications reviewed. Vital signs reviewed. Labs reviewed. Radiography reviewed. Assessment and Plan: Assessment & Plan Enteritis Present on Admission: Yes Continue empiric antibiotic tx (Zosyn) in high-risk patient (tentative plan for 7 day total course) Advance to regular diet after tolerating full liquids Simethicone PRN for nausea Negative GI panel, h/o C as below Leukocytosis (Resolved: 09/20/2024) Present on Admission: Yes Resolved Volume depletion, unspecified (Resolved: 09/20/2024) Present on Admission: Yes Resolved D/c mIVF Right lower quadrant abdominal pain Present on Admission: Yes Improving Continue abdominal exams Coronary artery disease with history of myocardial infarction without history of CABG Present on Admission: Not Applicable Resumed home metoprolol tartrate at half-strength (12.5mg PO BID) History of infection of intestine due to Clostridium difficile Present on Admission: Yes C diff PCR positive for toxin consistent with prior infection and colonization Contact precautions in place Enteritis treatment as above S/P colostomy ([facility]) Present on Admission: Not Applicable Continue to monitor ostomy output Prolonged Q-T interval on ECG Present on Admission: Yes Complicates care Avoid medications that could worsen issue Hypocalcemia Present on Admission: Yes Asymptomatic Hypomagnesemia Present on Admission: Yes Improved, continue to monitor and replete if needed Non-Hospital Problems Anxiety and depression Overview Deleted 06/14/2024 1:35 PM by Uriah Ricardo PA COPD (chronic obstructive pulmonary disease) ([facility]) Overview Deleted 06/14/2024 1:34 PM by Uriah Ricardo PA Tobacco use Overview Addendum 06/14/2024 1:35 PM by Uriah Ricardo PA NSTEMI (non-ST elevated myocardial infarction) ([facility]) Overview Addendum 06/14/2024 1:31 PM by Uriah Ricardo PA Diagnosed at OSH with elevated troponins of 0.05 to 0.23 to 0.16 GERD (gastroesophageal reflux disease) Overview Deleted 06/14/2024 1:34 PM by Uriah Ricardo PA Essential tremor Thrombocytosis Hyperlipidemia Overview Deleted 06/14/2024 1:33 PM by Uriah Ricardo PA THOM (obstructive sleep apnea) Overview Addendum 06/14/2024 1:35 PM by Uriah Ricardo PA S/P CABG x 4 Overview Addendum 06/14/2024 1:32 PM by Uriah Ricardo PA 05/06 4vCABG w/ Dr. Austin Aspirin, statin, beta stacey Hypertension Overview Deleted 06/14/2024 1:33 PM by Uriah Ricardo PA Post-op pain Overview Deleted 06/14/2024 1:33 PM by Uriah Ricardo PA Hyponatremia Transaminitis Sinus tachycardia Incomplete RBBB Tremor Hypertriglyceridemia Hypoalphalipoproteinemia S/P colon resection BMI 22.0-22.9, adult To Do: [ ] Downgrade order in, monitor for bed change - Monitor for hypotension after restarting home metoprolol at half-dose - Restart home ASA, rosuvastatin - discontinue IVF - Continue to monitor glucose after initial hypoglycemic episode - Continue Zosyn for empiric abx Dispo: - pending response to regular diet, home meds, stopping IVF Edited by: Tere Snow MD at 09/20/2024 1414 Tom Hudson MD Procedures Cosigned by Tere Snow MD at 09/20/2024 2:15 PM EDT Associated attestation - Tere Snow MD - 09/20/2024 2:15 PM EDT I saw and evaluated the patient with the resident/fellow. I discussed the case with the resident/fellow and agree with the findings and plan as documented. Tere Snow MD, FACS st[facility] Tra[facility] Acute Care Surgery * Care Plan - Marysol Lopez RN - 09/20/2024 9:22 AM EDT Problem: Adult Inpatient Plan of Care Goal: Plan of Care Review Outcome: Ongoing, Progressing Flowsheets (Taken 09/20/2024918) Progress: improving Plan of Care Reviewed With: patient Goal: Patient-Specific Goal (Individualized) Outcome: Ongoing, Progressing Flowsheets (Taken 09/20/2024799) Patient/Family-Specific Goals (Include Timeframe): pt will have adequate mobility/paincontrol throughout my shift Individualized Care Needs: pain control/mobility Anxieties, Fears or Concerns: pain Goal: Absence of Hospital-Acquired Illness or Injury Outcome: Ongoing, Progressing Intervention: Identify and Manage Fall Risk Flowsheets (Taken 09/20/2024918) Safety Promotion/Fall Prevention: activity supervised assistive device/personal items within reach clutter-free environment maintained nonskid shoes/slippers when out of bed room organization consistent Intervention: Prevent Skin Injury Flowsheets Taken 09/20/2024918 Skin Protection: transparent dressing maintained pulse oximeter probe site changed Taken 09/20/2024799 Body Position: weight shifting Intervention: Prevent and Manage VTE (Venous Thromboembolism) Risk Flowsheets (Taken 09/20/2024799) VTE Prevention/Management: bilateral lower extremity foot pump device on SCDs (sequential compression devices) on Intervention: Prevent Infection Flowsheets (Taken 09/20/2024918) Infection Prevention: personal protective equipment utilized rest/sleep promoted single patient room provided hand hygiene promoted Goal: Optimal Comfort and Wellbeing Outcome: Ongoing, Progressing Intervention: Monitor Pain and Promote Comfort Flowsheets (Taken 09/20/2024918) Pain Management Interventions: medication (see MAR) pillow support provided position adjusted Intervention: Provide Person-Centered Care Flowsheets (Taken 09/20/2024918) Trust Relationship/Rapport: care explained choices provided emotional support provided empathic listening provided questions answered Problem: Fall Injury Risk Goal: Absence of Fall and Fall-Related Injury Outcome: Ongoing, Progressing Intervention: Identify and Manage Contributors Flowsheets (Taken 09/20/2024918) Medication Review/Management: medications reviewed Self-Care Promotion: independence encouraged BADL personal objects within reach meal set-up provided Intervention: Promote Injury-Free Environment Flowsheets (Taken 09/20/2024918) Safety Promotion/Fall Prevention: activity supervised assistive device/personal items within reach clutter-free environment maintained nonskid shoes/slippers when out of bed room organization consistent Problem: Skin Injury Risk Increased Goal: Skin Health and Integrity Outcome: Ongoing, Progressing Intervention: Optimize Skin Protection Flowsheets Taken 09/20/2024918 Pressure Reduction Techniques: frequent weight shift encouraged heels elevated off bed Pressure Reduction Devices: feet on footrest/footstool foam padding utilized specialty bed utilized Skin Protection: transparent dressing maintained pulse oximeter probe site changed Taken 09/20/2024799 Activity Management: activity adjusted per tolerance Head of Bed (HOB) Positioning: HOB at 30-45 degrees Intervention: Promote and Optimize Oral Intake Flowsheets (Taken 09/20/2024918) Oral Nutrition Promotion: rest periods promoted physical activity promoted Nutrition Interventions: diet adjusted diet advanced Problem: Pain Acute Goal: Optimal Pain Control and Function Outcome: Ongoing, Progressing Intervention: Optimize Psychosocial Wellbeing Flowsheets (Taken 09/20/2024918) Supportive Measures: active listening utilized decision-making supported Diversional Activities: television Spiritual Activities Assistance: affirmation provided spiritual support provided Intervention: Develop Pain Management Plan Flowsheets (Taken 09/20/2024918) Pain Management Interventions: medication (see MAR) pillow support provided position adjusted Intervention: Prevent or Manage Pain Flowsheets (Taken 09/20/2024918) Sensory Stimulation Regulation: quiet environment promoted lighting decreased care clustered Bowel Elimination Promotion: ambulation promoted Sleep/Rest Enhancement: awakenings minimized consistent schedule promoted noise level reduced natural light exposure provided Medication Review/Management: medications reviewed Problem: Infection Goal: Absence of Infection Signs and Symptoms Outcome: Ongoing, Progressing Intervention: Prevent or Manage Infection Flowsheets Taken 09/20/2024918 Infection Management: aseptic technique maintained Fever Reduction/Comfort Measures: lightweight clothing lightweight bedding Taken 09/20/2024 08 Isolation Precautions: precautions maintained contact Problem: Surgery Nonspecified Goal: Absence of Bleeding Outcome: Ongoing, Progressing Intervention: Monitor and Manage Bleeding Flowsheets (Taken 09/20/2024918) Bleeding Management: dressing monitored Goal: Effective Bowel Elimination Outcome: Ongoing, Progressing Intervention: Enhance Bowel Motility and Elimination Flowsheets (Taken 09/20/2024918) Bowel Elimination Management: hygiene measures promoted relaxation techniques promoted toileting offered Bowel Motility Enhancement: ambulation promoted fluid intake encouraged Goal: Fluid and Electrolyte Balance Outcome: Ongoing, Progressing Intervention: Monitor and Manage Fluid and Electrolyte Balance Flowsheets (Taken 09/20/2024918) Fluid/Electrolyte Management: fluids provided fluids adjusted * Care Plan - Kelvin Yousif RN - 09/20/2024 2:13 AM EDT Problem: Adult Inpatient Plan of Care Goal: Plan of Care Review Outcome: Ongoing, Progressing Flowsheets Taken 09/18/20242128 by Sarah Johnson RN Progress: improving Taken 09/18/20244 by Mendy Matthews RN Outcome Evaluation: pt arrived to unit from [facility], went over plan of care with pt. Plan of Care Reviewed With: patient Goal: Patient-Specific Goal (Individualized) Outcome: Ongoing, Progressing Flowsheets (Taken 09/19/20241999) Patient/Family-Specific Goals (Include Timeframe): patient will have adequate pain control throughout the shift. Individualized Care Needs: pain control Anxieties, Fears or Concerns: pain Goal: Absence of Hospital-Acquired Illness or Injury Outcome: Ongoing, Progressing Intervention: Identify and Manage Fall Risk Flowsheets (Taken 09/19/20241999) Safety Promotion/Fall Prevention: activity supervised Goal: Optimal Comfort and Wellbeing Outcome: Ongoing, Progressing Problem: Fall Injury Risk Goal: Absence of Fall and Fall-Related Injury Outcome: Ongoing, Progressing Intervention: Identify and Manage Contributors Flowsheets (Taken 09/19/2024799 by Lexy Roblero) Medication Review/Management: medications reviewed Self-Care Promotion: independence encouraged Problem: Skin Injury Risk Increased Goal: Skin Health and Integrity Outcome: Ongoing, Progressing Intervention: Optimize Skin Protection Flowsheets Taken 09/20/2024 0000 by Kelvin Yousif RN Activity Management: activity minimized Head of Bed (HOB) Positioning: HOB at 20-30 degrees Taken 09/19/2024 1600 by Lexy Roblero Skin Protection: incontinence pads utilized Taken 09/19/2024799 by Lexy Roblero Pressure Reduction Techniques: frequent weight shift encouraged heels elevated off bed pressure points protected Taken 09/18/20242128 by Sarah Johnson RN Pressure Reduction Devices: specialty bed utilized Intervention: Promote and Optimize Oral Intake Flowsheets (Taken 09/19/2024799 by Lexy Roblero) Oral Nutrition Promotion: rest periods promoted social interaction promoted Nutrition Interventions: diet adjusted Problem: Pain Acute Goal: Optimal Pain Control and Function Outcome: Ongoing, Progressing Intervention: Optimize Psychosocial Wellbeing Flowsheets (Taken 09/19/20241126 by Lexy Roblero) Supportive Measures: active listening utilized mindfulness techniques promoted relaxation techniques promoted self-care encouraged verbalization of feelings encouraged Diversional Activities: television smartphone Spiritual Activities Assistance: affirmation provided Problem: Infection Goal: Absence of Infection Signs and Symptoms Outcome: Ongoing, Progressing Intervention: Prevent or Manage Infection Flowsheets Taken 09/19/20241999 by Kelvin Yousif RN Isolation Precautions: contact Taken 09/19/20241126 by Lexy Roblero Infection Management: aseptic technique maintained Fever Reduction/Comfort Measures: lightweight bedding Problem: Surgery Nonspecified Goal: Absence of Bleeding Outcome: Ongoing, Progressing Intervention: Monitor and Manage Bleeding Flowsheets (Taken 09/19/20241126 by Lexy Roblero) Bleeding Management: dressing monitored Goal: Effective Bowel Elimination Outcome: Ongoing, Progressing Intervention: Enhance Bowel Motility and Elimination Flowsheets (Taken 09/19/20241126 by Lexy Roblero) Bowel Elimination Management: hygiene measures promoted relaxation techniques promoted toileting offered Bowel Motility Enhancement: ambulation promoted fluid intake encouraged oral intake encouraged Goal: Fluid and Electrolyte Balance Outcome: Ongoing, Progressing Intervention: Monitor and Manage Fluid and Electrolyte Balance Flowsheets (Taken 09/19/2024 112 by Lexy Roblero) Fluid/Electrolyte Management: fluids provided * Assessment & Plan Note - Tere Snow MD - 09/19/2024 1:31 PM EDT Associated Problem(s): Enteritis Continue empiric antibiotics PPI BID, Simethicone PRN Negative GI panel * Assessment & Plan Note - Tere Snow MD - 09/19/2024 1:31 PM EDT Associated Problem(s): Volume depletion, unspecified (Resolved 09/20/2024) Receiving mIVF (D5LR) with boluses PRN Hypotension has resolved at this time * Assessment & Plan Note - Tere Snow MD - 09/19/2024 1:31 PM EDT Associated Problem(s): History of infection of intestine due to Clostridium difficile C diff PCR positive for toxin consistent with prior infection and colonization Contact precautions in place * Assessment & Plan Note - Tere Snow MD - 09/19/2024 1:31 PM EDT Associated Problem(s): Leukocytosis (Resolved 09/20/2024) Abx as above, trend and monitor * Assessment & Plan Note - Tere Snow MD - 09/19/2024 1:31 PM EDT Associated Problem(s): Right lower quadrant abdominal pain Monitor exam, abx as above * Assessment & Plan Note - Tere Snow MD - 09/19/2024 1:31 PM EDT Associated Problem(s): Coronary artery disease with history of myocardial infarction without history of CABG Holding home metoprolol at this time due to soft blood pressures, resume when able * Assessment & Plan Note - Tere Snow MD - 09/19/2024 1:31 PM EDT Associated Problem(s): Prolonged Q-T interval on ECG Avoid medications that could worsen issue * Assessment & Plan Note - Tere Snow MD - 09/19/2024 1:31 PM EDT Associated Problem(s): Hypotension due to hypovolemia (Resolved 09/19/2024) Upgrade to ICU Fluid resuscitation * Care Plan - Lexy Roblero - 09/19/2024 11:35 AM EDT Problem: Adult Inpatient Plan of Care Goal: Plan of Care Review 09/19/2024 112 by Lexy Roblero Outcome: Ongoing, Progressing Flowsheets Taken 09/18/20242128 by Sarah Johnson RN Progress: improving Taken 09/18/2024 0024 by Mendy Matthews RN Outcome Evaluation: pt arrived to unit from [facility], went over plan of care with pt. Plan of Care Reviewed With: patient 09/19/2024 1111 by Lexy Roblero Outcome: Ongoing, Progressing Flowsheets Taken 09/18/20242128 by Sarah Johnson RN Progress: improving Taken 09/18/2024 0024 by Mendy Matthews RN Outcome Evaluation: pt arrived to unit from [facility], went over plan of care with pt. Plan of Care Reviewed With: patient Goal: Patient-Specific Goal (Individualized) 09/19/2024 1127 by Lexy Roblero Outcome: Ongoing, Progressing Flowsheets (Taken 09/19/2024 0800) Patient/Family-Specific Goals (Include Timeframe): pt will state adequate pain control throughout shift. Individualized Care Needs: pain control Anxieties, Fears or Concerns: pain 09/19/2024 1111 by Lexy Roblero Outcome: Ongoing, Progressing Flowsheets (Taken 09/19/2024 0800) Patient/Family-Specific Goals (Include Timeframe): pt will state adequate pain control throughout shift. Individualized Care Needs: pain control Anxieties, Fears or Concerns: pain Goal: Absence of Hospital-Acquired Illness or Injury 09/19/2024 1127 by Lexy Roblero Outcome: Ongoing, Progressing 09/19/2024 1111 by Lexy Roblero Outcome: Ongoing, Progressing Intervention: Identify and Manage Fall Risk 09/19/2024 1127 by Lexy Roblero (Taken 09/19/2024 0800) Safety Promotion/Fall Prevention: activity supervised clutter-free environment maintained fall prevention program maintained lighting adjusted nonskid shoes/slippers when out of bed room organization consistent safety round/check completed toileting scheduled 09/19/2024 1111 by Lexy Roblero (Taken 09/19/2024 0800) Safety Promotion/Fall Prevention: activity supervised clutter-free environment maintained fall prevention program maintained lighting adjusted nonskid shoes/slippers when out of bed room organization consistent safety round/check completed toileting scheduled Intervention: Prevent Skin Injury 09/19/2024 1127 by Lexy Roblero (Taken 09/19/2024 0800) Body Position: weight shifting Skin Protection: incontinence pads utilized protective footwear used 09/19/2024 1111 by Lexy Roblero (Taken 09/19/2024 0800) Body Position: weight shifting Skin Protection: incontinence pads utilized protective footwear used Intervention: Prevent and Manage VTE (Venous Thromboembolism) Risk 09/19/2024 1127 by Lexy Roblero (Taken 09/19/2024 0800) VTE Prevention/Management: bilateral SCDs (sequential compression devices) on 09/19/2024 1111 by Lexy Roblero (Taken 09/19/2024 0800) VTE Prevention/Management: bilateral SCDs (sequential compression devices) on Intervention: Prevent Infection 09/19/2024 1127 by Lexy Roblero (Taken 09/19/2024 0800) Infection Prevention: hand hygiene promoted rest/sleep promoted personal protective equipment utilized environmental surveillance performed equipment surfaces disinfected 09/19/2024 1111 by Lexy Roblero (Taken 09/19/2024 0800) Infection Prevention: hand hygiene promoted rest/sleep promoted personal protective equipment utilized environmental surveillance performed equipment surfaces disinfected Goal: Optimal Comfort and Wellbeing 09/19/2024 1127 by Lexy Roblero Outcome: Ongoing, Progressing 09/19/2024 1111 by Lexy Roblero Outcome: Ongoing, Progressing Intervention: Monitor Pain and Promote Comfort 09/19/2024 1127 by Lexy Roblero (Taken 09/19/2024 1048 by Alissa Ace, RN) Pain Management Interventions: medication (see MAR) 09/19/2024 1111 by Lexy Roblero (Taken 09/19/2024 1048 by Alissa Ace, RN) Pain Management Interventions: medication (see MAR) Intervention: Provide Person-Centered Care 09/19/2024 1127 by Lexy Roblero (Taken 09/19/2024 0800) Trust Relationship/Rapport: care explained emotional support provided empathic listening provided questions answered reassurance provided questions encouraged thoughts/feelings acknowledged 09/19/2024 1111 by Lexy Roblero (Taken 09/19/2024 0800) Trust Relationship/Rapport: care explained emotional support provided empathic listening provided questions answered reassurance provided questions encouraged thoughts/feelings acknowledged Problem: Fall Injury Risk Goal: Absence of Fall and Fall-Related Injury 09/19/2024 1127 by Lexy Roblero Outcome: Ongoing, Progressing 09/19/2024 1111 by Lexy Roblero Outcome: Ongoing, Progressing Intervention: Identify and Manage Contributors 09/19/2024 1127 by Lexy Robleor (Taken 09/19/2024 0800) Medication Review/Management: medications reviewed Self-Care Promotion: independence encouraged 09/19/2024 1111 by Lexy Roblero (Taken 09/19/2024 0800) Medication Review/Management: medications reviewed Self-Care Promotion: independence encouraged Intervention: Promote Injury-Free Environment 09/19/2024 1127 by Lexy Roblero (Taken 09/19/2024 0800) Safety Promotion/Fall Prevention: activity supervised clutter-free environment maintained fall prevention program maintained lighting adjusted nonskid shoes/slippers when out of bed room organization consistent safety round/check completed toileting scheduled 09/19/2024 1111 by Lexy Roblero (Taken 09/19/2024 0800) Safety Promotion/Fall Prevention: activity supervised clutter-free environment maintained fall prevention program maintained lighting adjusted nonskid shoes/slippers when out of bed room organization consistent safety round/check completed toileting scheduled Problem: Skin Injury Risk Increased Goal: Skin Health and Integrity 09/19/2024 1127 by Lexy Roblero Outcome: Ongoing, Progressing 09/19/2024 1111 by Lexy Roblero Outcome: Ongoing, Progressing Intervention: Optimize Skin Protection 09/19/2024 1127 by Lexy Roblero Flowsheets Taken 09/19/2024 1000 by Alissa Ace, RN Head of Bed (HOB) Positioning: HOB at 20-30 degrees Taken 09/19/2024 0800 by Lexy Roblero Activity Management: activity adjusted per tolerance activity encouraged Pressure Reduction Techniques: frequent weight shift encouraged heels elevated off bed pressure points protected Skin Protection: incontinence pads utilized protective footwear used Taken 09/18/20242128 by Sarah Johnson RN Pressure Reduction Devices: specialty bed utilized 09/19/2024 1111 by Lexy Roblero Flowsheets Taken 09/19/2024 0800 by Lexy Roblero Activity Management: activity adjusted per tolerance activity encouraged Pressure Reduction Techniques: frequent weight shift encouraged heels elevated off bed pressure points protected Skin Protection: incontinence pads utilized protective footwear used Head of Bed (HOB) Positioning: HOB at 30 degrees Taken 09/18/20242128 by Sarah Johnson RN Pressure Reduction Devices: specialty bed utilized Intervention: Promote and Optimize Oral Intake 09/19/2024 1127 by Lexy Roblero Flowsheets (Taken 09/19/2024 0800) Oral Nutrition Promotion: rest periods promoted social interaction promoted Nutrition Interventions: diet adjusted 09/19/2024 1111 by Lexy Roblero Flowsheets (Taken 09/19/2024 0800) Oral Nutrition Promotion: rest periods promoted social interaction promoted Nutrition Interventions: diet adjusted Problem: Pain Acute Goal: Optimal Pain Control and Function Outcome: Ongoing, Progressing Intervention: Optimize Psychosocial Wellbeing Flowsheets (Taken 09/19/2024 1127) Supportive Measures: active listening utilized mindfulness techniques promoted relaxation techniques promoted self-care encouraged verbalization of feelings encouraged Diversional Activities: television smartphone Spiritual Activities Assistance: affirmation provided Intervention: Develop Pain Management Plan Flowsheets (Taken 09/19/2024 1048 by Alissa Ace, RN) Pain Management Interventions: medication (see MAR) Intervention: Prevent or Manage Pain Flowsheets Taken 09/19/2024 1127 Sensory Stimulation Regulation: quiet environment promoted Complementary Therapy: essential oils utilized Bowel Elimination Promotion: ambulation promoted Sleep/Rest Enhancement: consistent schedule promoted natural light exposure provided noise level reduced regular sleep/rest pattern promoted relaxation techniques promoted Taken 09/19/2024 0800 Medication Review/Management: medications reviewed Problem: Infection Goal: Absence of Infection Signs and Symptoms Outcome: Ongoing, Progressing Intervention: Prevent or Manage Infection Flowsheets Taken 09/19/2024 1127 Infection Management: aseptic technique maintained Fever Reduction/Comfort Measures: lightweight bedding Taken 09/19/2024 0800 Isolation Precautions: contact Problem: Surgery Nonspecified Goal: Absence of Bleeding Outcome: Ongoing, Progressing Intervention: Monitor and Manage Bleeding Flowsheets (Taken 09/19/2024 1127) Bleeding Management: dressing monitored Goal: Effective Bowel Elimination Outcome: Ongoing, Progressing Intervention: Enhance Bowel Motility and Elimination Flowsheets (Taken 09/19/2024 112) Bowel Elimination Management: hygiene measures promoted relaxation techniques promoted toileting offered Bowel Motility Enhancement: ambulation promoted fluid intake encouraged oral intake encouraged Goal: Fluid and Electrolyte Balance Outcome: Ongoing, Progressing Intervention: Monitor and Manage Fluid and Electrolyte Balance Flowsheets (Taken 09/19/2024 1127) Fluid/Electrolyte Management: fluids provided * Assessment & Plan Note - Cheryl Aguirre MD - 09/19/2024 7:19 AM EDT Associated Problem(s): Prolonged Q-T interval on ECG Avoid medications that could worsen issue * Progress Notes - Cheryl Aguirre MD - 09/19/2024 7:08 AM EDT Surgical ICU Daily Progress Note 09/19/24 Rere Reese HPI 53 yo female with PMH significant for anxiety, depression, COPD, tobacco abuse, NSTEMI s/p CABG x 4on 05/06, and ex lap w/ left colectomy, end colostomy creation on 05/23 for colonic perforation, drain placement by IR on 06/04 for fluid collection in the abdomen (perisplenic) who presented on 09/17/24 from OSH for concerns of increasing abdominal pain and swelling around ostomy. Admitted for Enteritis with IV abx. Interval: Upgraded to ICU for hypotension unresponsive to fluids. Patient has been normotensive while in the ICU. Has required scheduled pain medication for RLQ pain.Pain episode and hypoglycemia overnight treated with pain meds and D5LR Edited by: Tere Snow MD at 09/19/2024 1331 Relevant review of systems was obtained as able and is negative unless stated above in HPI. Vital signs: Visit Vitals BP 101/64 Pulse 82 Temp 36.7 ??C (98 ??F) (Axillary) Resp 17 Ht 1.52 m (4' 11.84 ) Wt 52.5 kg (115 lb 11.9 oz) SpO2 91% BMI 22.72 kg/m?? Smoking Status Former BSA 1.49 m?? Intake/Output Summary (Last 24 hours) at 09/19/2024 0723 Last data filed at 09/19/2024 0600 Gross per 24 hour Intake 1575 ml Output 225 ml Net 1350 ml Physical Exam: Physical Exam Constitutional: General: She is not in acute distress. Appearance: She is ill-appearing. HENT: Head: Normocephalic and atraumatic. Cardiovascular: Rate and Rhythm: Normal rate. Pulmonary: Effort: Pulmonary effort is normal. No respiratory distress. Abdominal: General: Abdomen is flat. There is no distension. Palpations: Abdomen is soft. Tenderness: There is abdominal tenderness (Minimal tenderness to the lower belly, and directly below her stoma). There is no guarding. Musculoskeletal: General: Normal range of motion. Cervical back: Normal range of motion. Skin: General: Skin is warm. Neurological: General: No focal deficit present. Mental Status: She is alert and oriented to person, place, and time. Gait: Gait normal. Psychiatric: Mood and Affect: Mood normal. Behavior: Behavior normal. Lines/Drains/Tubes: Patient Lines/Drains/Airways Status Active Airway None Output by Drain (mL) 09/17/24 07 - 09/17/24 1859 09/17/24 190 - 09/18/24 0659 09/18/24 07 - 09/18/24 1859 09/18/24 1900 - 09/19/24 0659 09/19/24 07 - 09/19/24 0723 Requested LDAs do not have output data documented. Labs in last 18 hours: CBC WBC 7.40 Hb 10.1 (L) Plt 403 (H) Hct 31.8 (L) ANC ?? INR ??, PTT ??, Anti-Xa ?? BMP Na 142 Cl 108 (H) BUN 4 (L) Glu 59 (L) K 3.7 Co2 26 Cr 0.74 Ca 7.9 (L) iCa ?? Mg 1.8 (L), Phos 5.5 (H) Lactate ?? LFT AST 146 (H) AlkPhos 188 (H) T Prot 5.0 (L) ALK 86 (H) Bili 0.2 Alb ?? D.Bili ?? Lab Trends: H/H Results from last 7 days Lab Units 09/19/24 0038 09/18/24 1116 09/18/24 0219 HEMOGLOBIN g/dL 10.1* 9.8* 10.6* HEMATOCRIT % 31.8* 30.8* 33.1* INR Cr Results from last 7 days Lab Units 09/19/24 0038 09/18/24 1806 09/18/24 1805 CREATININE mg/dL 0.74 0.73 0.72 Radiology: There is no new imaging to review for this encounter. Medications reviewed. Vital signs reviewed. Labs reviewed. Radiography reviewed. Assessment and Plan: Assessment & Plan Enteritis Continue empiric antibiotics PPI BID, Simethicone PRN Negative GI panel Leukocytosis Abx as above, trend and monitor Volume depletion, unspecified Receiving mIVF (D5LR) with boluses PRN Hypotension has resolved at this time Right lower quadrant abdominal pain Monitor exam, abx as above Coronary artery disease with history of myocardial infarction without history of CABG Holding home metoprolol at this time due to soft blood pressures, resume when able History of infection of intestine due to Clostridium difficile C diff PCR positive for toxin consistent with prior infection and colonization Contact precautions in place Prolonged Q-T interval on ECG Avoid medications that could worsen issue Hypotension due to hypovolemia (Resolved: 09/19/2024) Upgrade to ICU Fluid resuscitation Non-Hospital Problems Anxiety and depression Overview Deleted 06/14/2024 1:35 PM by Uriah Ricardo PA COPD (chronic obstructive pulmonary disease) ([facility]) Overview Deleted 06/14/2024 1:34 PM by Uriah Ricardo PA Tobacco use Overview Addendum 06/14/2024 1:35 PM by Uriah Ricardo PA NSTEMI (non-ST elevated myocardial infarction) ([facility]) Overview Addendum 06/14/2024 1:31 PM by Uriah Ricardo PA Diagnosed at OSH with elevated troponins of 0.05 to 0.23 to 0.16 GERD (gastroesophageal reflux disease) Overview Deleted 06/14/2024 1:34 PM by Uriah Ricardo PA Essential tremor Thrombocytosis Hypocalcemia Hyperlipidemia Overview Deleted 06/14/2024 1:33 PM by Uriah Ricardo PA THOM (obstructive sleep apnea) Overview Addendum 06/14/2024 1:35 PM by Uriah Ricardo PA S/P CABG x 4 Overview Addendum 06/14/2024 1:32 PM by Uriah Ricardo PA 05/06 4vCABG w/ Dr. Austin Aspirin, statin, beta stacey Hypertension Overview Deleted 06/14/2024 1:33 PM by Uriah Ricardo PA Post-op pain Overview Deleted 06/14/2024 1:33 PM by Uriah Ricardo PA Hyponatremia Hypomagnesemia Transaminitis Sinus tachycardia Incomplete RBBB Tremor Hypertriglyceridemia Hypoalphalipoproteinemia S/P colostomy ([facility]) S/P colon resection BMI 22.0-22.9, adult To Do: [ ] Continue IVF - maintenance and bolus PRN [ ] Progress to full liquid diet - monitor intake to de-escalate fluids - resolved hypotension, will monitor - cont to monitor glucose, advance diet and wean IVFs as able - Empiric abx to continue - Monitor abdominal exam - Monitor UOP - Replace electrolytes and monitor for further needs - Morning labs: CBC, BMP + Mg, Phos Dispo: pending clinical improvement Edited by: Tere Snow MD at 09/19/2024 5451 Cheryl Aguirre MD Cosigned by Tere Snow MD at 09/19/2024 1:31 PM EDT Associated attestation - eTre Snow MD - 09/19/2024 1:31 PM EDT I saw and evaluated the patient with the resident/fellow. I discussed the case with the resident/fellow and agree with the findings and plan as documented. Tere Snow MD, FACS [facility] * Assessment & Plan Note - Marysol Mancini MD - 09/19/2024 12:24 AM EDT Associated Problem(s): Volume depletion, unspecified (Resolved 09/20/2024) Receiving IV fluid bolus * Assessment & Plan Note - Marysol Mancini MD - 09/19/2024 12:24 AM EDT Associated Problem(s): Right lower quadrant abdominal pain Monitor exam, abx as above * Assessment & Plan Note - Marysol Mancini MD - 09/19/2024 12:24 AM EDT Associated Problem(s): Enteritis -Empiric antibiotics -f/u GI panel and C. Diff PCR -Consider GI consult given recurrent inflammation in same segment of ileum * Assessment & Plan Note - Marysol Mancini MD - 09/19/2024 12:24 AM EDT Associated Problem(s): Leukocytosis (Resolved 09/20/2024) Abx as above, trend and monitor * Assessment & Plan Note - Marysol Mancini MD - 09/19/2024 12:24 AM EDT Associated Problem(s): Coronary artery disease with history of myocardial infarction without history of CABG Holding home metoprolol at this time due to soft blood pressures, resume when able * Assessment & Plan Note - Marysol Mancini MD - 09/19/2024 12:24 AM EDT Associated Problem(s): History of infection of intestine due to Clostridium difficile Recheck c-diff pending. * Assessment & Plan Note - Marysol Mancini MD - 09/19/2024 12:24 AM EDT Associated Problem(s): Prolonged Q-T interval on ECG -Avoid medications that could worsen issue * Care Plan - Sarah Johnson RN - 09/18/2024 9:29 PM EDT Problem: Adult Inpatient Plan of Care Goal: Plan of Care Review 09/18/20242128 by Sarah Johnson RN Outcome: Ongoing, Progressing Flowsheets Taken 09/18/20242128 by Sarah Johnson RN Progress: improving Taken 09/18/2024 0024 by Mendy Matthews RN Plan of Care Reviewed With: patient 09/18/20242125 by Sarah Johnson RN Outcome: Ongoing, Progressing Goal: Patient-Specific Goal (Individualized) 09/18/20242128 by Sarah Johnson RN Outcome: Ongoing, Progressing Flowsheets Taken 09/18/20242128 by Sarah Johnson RN Anxieties, Fears or Concerns: rest/sleep Taken 09/18/2024 1000 by Kaylee Trujillo, RN Patient/Family-Specific Goals (Include Timeframe): pt will be hemodynamically stable through shift Individualized Care Needs: hemodynamic stability 09/18/20242125 by Sarah Johnosn RN Outcome: Ongoing, Progressing Goal: Absence of Hospital-Acquired Illness or Injury 09/18/20242128 by Sarah Johnson RN Outcome: Ongoing, Progressing 09/18/20242125 by Sarah Johnson RN Outcome: Ongoing, Progressing Intervention: Identify and Manage Fall Risk Flowsheets (Taken 09/18/20242128) Safety Promotion/Fall Prevention: activity supervised clutter-free environment maintained fall prevention program maintained lighting adjusted nonskid shoes/slippers when out of bed room organization consistent safety round/check completed Intervention: Prevent Skin Injury Flowsheets Taken 09/18/20242128 Skin Protection: incontinence pads utilized protective footwear used Taken 09/18/20241999 Body Position: weight shifting Intervention: Prevent and Manage VTE (Venous Thromboembolism) Risk Flowsheets (Taken 09/18/20242128) VTE Prevention/Management: (regularly ambulating) SCDs (sequential compression devices) off patient refused intervention other (see comments) Intervention: Prevent Infection Flowsheets (Taken 09/18/20242128) Infection Prevention: personal protective equipment utilized environmental surveillance performed hand hygiene promoted single patient room provided rest/sleep promoted equipment surfaces disinfected Goal: Optimal Comfort and Wellbeing 09/18/20242128 by Sarah Johnson RN Outcome: Ongoing, Progressing 09/18/20242125 by Sarah Johnson RN Outcome: Ongoing, Progressing Intervention: Monitor Pain and Promote Comfort Flowsheets (Taken 09/18/2024 1356 by Kaylee Trujillo, RN) Pain Management Interventions: medication (see MAR) Intervention: Provide Person-Centered Care Flowsheets (Taken 09/18/20242128) Trust Relationship/Rapport: care explained choices provided emotional support provided empathic listening provided questions answered questions encouraged reassurance provided thoughts/feelings acknowledged Problem: Fall Injury Risk Goal: Absence of Fall and Fall-Related Injury 09/18/20242128 by Sarah Johnson RN Outcome: Ongoing, Progressing 09/18/20242125 by Sarah Johnson RN Outcome: Ongoing, Progressing Intervention: Identify and Manage Contributors Flowsheets (Taken 09/18/20242128) Medication Review/Management: medications reviewed high-risk medications identified Self-Care Promotion: independence encouraged Intervention: Promote Injury-Free Environment Flowsheets (Taken 09/18/20242128) Safety Promotion/Fall Prevention: activity supervised clutter-free environment maintained fall prevention program maintained lighting adjusted nonskid shoes/slippers when out of bed room organization consistent safety round/check completed Problem: Skin Injury Risk Increased Goal: Skin Health and Integrity Outcome: Ongoing, Progressing Intervention: Optimize Skin Protection Flowsheets Taken 09/18/20242128 by Sarah Johnson RN Pressure Reduction Techniques: heels elevated off bed frequent weight shift encouraged Pressure Reduction Devices: specialty bed utilized Skin Protection: incontinence pads utilized protective footwear used Taken 09/18/2024 2100 by Sarah Johnson RN Activity Management: ambulated to bathroom Taken 09/18/2024 1800 by Kaylee Trujillo RN Head of Bed (HOB) Positioning: HOB at 30-45 degrees Intervention: Promote and Optimize Oral Intake Flowsheets (Taken 09/18/20242128) Oral Nutrition Promotion: rest periods promoted Nutrition Interventions: diet adjusted * Procedures - Cristel Encinas RN - 09/18/2024 6:33 PM EDTAssociated Order(s): Insert peripheral IV Insert peripheral IV Performed by: Cristel Encinas RN Authorized by: Tere Snow MD [place] Protocol: Verbal consent obtained?: Yes Risks and benefits: Risks, benefits and alternatives were discussed Consent given by: Patient Patient states understanding of procedure being performed: Yes Patient identity confirmed: Verbally with patient, arm band, provided demographic data and hospital-assigned identification number Time out: Immediately prior to the procedure a time out was called Hand hygiene: Hand hygiene performed prior to insertion Inserted using aseptic techniques: Yes Preparation: Skin prepped with alcohol and skin prepped with chg Orientation: Left and lower (mid cephalic vein) Location: Forearm Catheter placed: Peripheral IV Catheter size: 20g/2.00in Line Technique: Ultrasound Guidance Number of attempts: 1 IV flushes: Without difficulty and positive blood return noted and IV luer locked (labs obtained with IV insertion) Patient tolerance: Patient tolerated the procedure well and there were no complications Patient comfort measures used: Position of comfort IV site covered with: Transparent semipermeable dressing Comments: Alcohol swab cap(s) applied. Education provided to patient at bedside regarding PIV care, s/s of infection and phlebitis. Patient verbalized understanding.3CG and/or vein images sent to PACS. * Assessment & Plan Note - Cheryl Aguirre MD - 09/18/2024 5:12 PM EDT Associated Problem(s): Volume depletion, unspecified (Resolved 09/20/2024) Patient not responsive to fluids overnight; not requiring pressors Currently ~3L of fluids given so far Some concern for hypovolemic shock in the setting of this infection * Progress Notes - Umu Londono RN - 09/18/2024 3:37 PM EDT Case Management Adult Progress Note Rere Reese 53 y.o. female CSN: [id number] Admission: 09/17/2024 10:40 PM Primary Problem: Enteritis Per primary treatment team, patient is not medically ready to discharge at this time. Upgraded to ICU this date. CM will continue to follow and assist with discharge needs. Umu Londono, RN * Assessment & Plan Note - Cheryl Aguirre MD - 09/18/2024 3:06 PM EDT Associated Problem(s): Enteritis Empiric abx started - Zosyn PPI BID PCR positive for C diff toxin consistent with prior infection; negative GI panel * Assessment & Plan Note - Cheryl Aguirre MD - 09/18/2024 3:06 PM EDT Associated Problem(s): Right lower quadrant abdominal pain Monitoring for changes * Assessment & Plan Note - Cheryl Aguirre MD - 09/18/2024 3:06 PM EDT Associated Problem(s): Hypotension due to hypovolemia (Resolved 09/19/2024) Upgrade to ICU Fluid resuscitation * Progress Notes - Cheryl Aguirre MD - 09/18/2024 2:46 PM EDT Surgical ICU Daily Progress Note 09/18/24 Rere Reese HPI 53 yo female with PMH significant for anxiety, depression, COPD, tobacco abuse, NSTEMI s/p CABG x 4on 05/06, and ex lap w/ left colectomy, end colostomy creation on 05/23 for colonic perforation, drain placement by IR on 06/04 for fluid collection in the abdomen (perisplenic) who presented on 09/17/24 from OSH for concerns of increasing abdominal pain and swelling around ostomy. Admitted for Enteritis with IV abx. Interval: Her nurse alerted team to hypotension. Had received 1.5L with minimal response. Reported BP 81/60. Upgraded to the ICU by the trauma team. Went to beside with the SICU team. Patient appeared older than stated age, pale, and frail. Dry mucous membranes noted on exam as well. Blood pressures were taken in both arms and improved from previous - 90s/60s. Edited by: Cheryl Aguirre MD at 09/18/2024 9255 Relevant review of systems was obtained as able and is negative unless stated above in HPI. Vital signs: Visit Vitals BP 87/59 Pulse 81 Temp 37.2 ??C (98.9 ??F) (Oral) Resp 14 Ht 1.52 m (4' 11.84 ) Wt 52.5 kg (115 lb 11.9 oz) SpO2 97% BMI 22.72 kg/m?? Smoking Status Former BSA 1.49 m?? Intake/Output Summary (Last 24 hours) at 09/18/2024 1712 Last data filed at 09/18/2024 1400 Gross per 24 hour Intake 480 ml Output 100 ml Net 380 ml Physical Exam: Physical Exam Constitutional: General: She is awake. She is not in acute distress. Appearance: She is ill-appearing (Appears older than stated age). HENT: Head: Normocephalic and atraumatic. Mouth/Throat: Mouth: Mucous membranes are dry. Eyes: Extraocular Movements: Extraocular movements intact. Cardiovascular: Rate and Rhythm: Normal rate. Pulmonary: Effort: Pulmonary effort is normal. No respiratory distress. Abdominal: General: Abdomen is flat. There is no distension. Palpations: Abdomen is soft. Tenderness: There is no abdominal tenderness. Comments: Abdomen benign, minimal RLQ ttp, stoma pink with green stool output in bag Musculoskeletal: General: Normal range of motion. Cervical back: Normal range of motion. Skin: General: Skin is warm. Neurological: General: No focal deficit present. Mental Status: Mental status is at baseline. Psychiatric: Mood and Affect: Mood normal. Behavior: Behavior normal. Comments: Seems tired and frail Lines/Drains/Tubes: Patient Lines/Drains/Airways Status Active Airway None Output by Drain (mL) 09/16/24 07 - 09/16/24 1859 09/16/24 190 - 09/17/24 0659 09/17/24 07 - 09/17/24 1859 09/17/24 190 - 09/18/24 0659 09/18/24 07 - 09/18/24 1712 Requested LDAs do not have output data documented. Labs in last 18 hours: CBC WBC 6.49 Hb 9.8 (L) Plt 451 (H) Hct 30.8 (L) ANC 2.85 INR ??, PTT ??, Anti-Xa ?? BMP Na 138 Cl 101 BUN 6 (L) Glu 89 K 3.6 Co2 26 Cr 0.81 Ca 8.5 (L) iCa ?? Mg 1.7 (L), Phos 5.6 (H) Lactate ?? LFT AST ?? AlkPhos ?? T Prot ?? ALK ?? Bili ?? Alb ?? D.Bili ?? Lab Trends: H/H Results from last 7 days Lab Units 09/18/24 1116 09/18/24 0219 HEMOGLOBIN g/dL 9.8* 10.6* HEMATOCRIT % 30.8* 33.1* INR Cr Results from last 7 days Lab Units 09/18/24 0219 CREATININE mg/dL 0.81 Radiology: I have personally reviewed and interpreted the most recent CXR and my interpretation is that it shows adequate lung volumes, no obvious effusions or consolidations, no pneumothorax. Medications reviewed. Vital signs reviewed. Labs reviewed. Radiography reviewed. Assessment and Plan: Assessment & Plan Enteritis Present on Admission: Yes Empiric abx started - Zosyn PPI BID PCR positive for C diff toxin consistent with prior infection; negative GI panel Volume depletion, unspecified Present on Admission: Yes Patient not responsive to fluids overnight; not requiring pressors Currently ~3L of fluids given so far Some concern for hypovolemic shock in the setting of this infection Leukocytosis Present on Admission: Yes Right lower quadrant abdominal pain Present on Admission: Yes Monitoring for changes Hypotension due to hypovolemia Present on Admission: No Upgrade to ICU Fluid resuscitation Non-Hospital Problems Anxiety and depression Overview Deleted 06/14/2024 1:35 PM by Uriah Ricardo PA COPD (chronic obstructive pulmonary disease) ([facility]) Overview Deleted 06/14/2024 1:34 PM by Uriah Ricardo PA Tobacco use Overview Addendum 06/14/2024 1:35 PM by Uriah Ricardo PA CAD, multiple vessel Overview Addendum 06/14/2024 1:31 PM by Uriah Ricardo PA Patient presented to OSH on 05/01/24 c/o chest pain, LHC reveal mvCAD S/p CABG with Dr. Austin on 05/07 NSTEMI (non-ST elevated myocardial infarction) ([facility]) Overview Addendum 06/14/2024 1:31 PM by Uriah Ricardo PA Diagnosed at OSH with elevated troponins of 0.05 to 0.23 to 0.16 GERD (gastroesophageal reflux disease) Overview Deleted 06/14/2024 1:34 PM by Uriah Ricardo PA Essential tremor Thrombocytosis Hypocalcemia Hyperlipidemia Overview Deleted 06/14/2024 1:33 PM by Uriah Ricardo PA THOM (obstructive sleep apnea) Overview Addendum 06/14/2024 1:35 PM by Uriah Ricardo PA S/P CABG x 4 Overview Addendum 06/14/2024 1:32 PM by Uriah Ricardo PA 05/06 4vCABG w/ Dr. Austin Aspirin, statin, beta stacey Hypertension Overview Deleted 06/14/2024 1:33 PM by Uriah Ricardo PA Post-op pain Overview Deleted 06/14/2024 1:33 PM by rUiah Ricardo PA Hyponatremia Hypomagnesemia Transaminitis Sinus tachycardia Incomplete RBBB Tremor Hypertriglyceridemia Hypoalphalipoproteinemia S/P colostomy ([facility]) S/P colon resection BMI 22.0-22.9, adult To Do: [ ] Continue IVF - maintenance and bolus PRN [ ] PM chem @ 1800 - ICU upgrade for hypotension - fluid resuscitation for suspected hypovolemia from infection - Empiric abx to continue - monitor abdominal exam which is improved from arrival per patient - monitor UOP - replace electrolytes and monitor for further needs - CLD Dispo: pending clinical improvement Edited by: Tere Snow MD at 09/18/2024 1548 Cheryl Aguirre MD Acute Care Surgery Faculty I have seen and examined this patient with the Trauma Acute Care Surgery team. I attest to the resident note after review. We reviewed all pertinent labs, xrays and heritage consultant reports and determined a plan of care. I have reviewed the assessment and plan and agree the note. Fluid resuscitation and monitoring for correction of hypotension Pt appears ill but no current exam finding suggestive of need for any surgical intervention Cont antibiotics Monitor ouput Tere Snow MD, FACS Acute Care Surgery General Surgery/Trauma/Critical Care Cosigned by Tere Snow MD at 09/19/2024 1:28 PM EDT Associated attestation - Tere Snow MD - 09/19/2024 1:28 PM EDT I saw and evaluated the patient with the resident/fellow. I discussed the case with the resident/fellow and agree with the findings and plan as documented. Please see edited note comments Tere Snow MD, FACS stoper Trauma Acute Care Surgery * Consults - Marva Connelly RD - 09/18/2024 9:24 AM EDT Adult Nutrition Evaluation Note Rere Reese 53 y.o. female CSN: [id number] Room/Bed 123/123A Nutrition evaluation type: assessment Reason for evaluation: nurse consult- MST 3 weight loss/decreased PO Hospital course: 53 yo F transferred to for increasing abdominal pain and swelling around her ostomy site the last few days. Ostomy output has changed from brown and formed to yellow/green and liquid. + nausea/decreased appetite due to pain. Noted pt with Enteritis. Past medical/ surgical history: Past Medical History[1] NSTEMI s/p CABG x 4 on 05/06, complicated by ileus s/p exploratory lap, extended left colectomy and end colostomy creation on 05/23 for colonic perforation. Surgical History[2] Social history: Additional comments: Pt out of room Vitals and Basic Assessment: BP: (!) 74/46 Temp: 36.4 ??C (97.6 ??F) Oxygen Therapy: None (Room air) Jaida Coma Scale Score: 15 Shaan Scale Score: 22 Most Recent BM Date: (colostomy) x1 x 24 hrs GI Symptoms: None Allergies: NKFA Medications: Current Scheduled Medications[3] Current Continuous Medications[4] Current PRN Medications[5] Labs: Results from last 7 days Lab Units 09/18/24 0219 SODIUM mmol/L 138 POTASSIUM mmol/L 3.6 CHLORIDE mmol/L 101 CO2 mmol/L 26 BUN mg/dL 6* CREATININE mg/dL 0.81 EGFR mL/min/1.73m*2 86.4 GLUCOSE mg/dL 89 CALCIUM mg/dL 8.5* PHOSPHORUS mg/dL 5.6* Results from last 7 days Lab Units 09/18/24 0219 WBC 10*3/uL 15.28* HEMOGLOBIN g/dL 10.6* HEMATOCRIT % 33.1* PLATELETS 10*3/uL 468* Anthropometrics: Ht; 1.52 m (4' 11.84 ) Wt: 52.5 kg BMI: 22.72 Wt Evaluation: normal IBW: 45.3 kg %IBW : 116 Adjusted Body Weight: Weight History: Wt Readings from Last 7 Encounters: 09/18/24 52.5 kg (115 lb 11.9 oz) 09/17/24 51.3 kg (113 lb 1.5 oz) 08/21/24 53.2 kg (117 lb 4.8 oz) 07/31/24 53.7 kg (118 lb 4.8 oz) 07/18/24 52.7 kg (116 lb 1.2 oz) 06/29/24 53.3 kg (117 lb 6.4 oz) 06/21/24 52.1 kg (114 lb 13.8 oz) Estimated Needs: Current Nutrition Intake: Diet: Clears Supplements: Intake: I/o's: Intake/Output Summary (Last 24 hours) at 09/18/2024 09 Last data filed at 09/18/2024 0000 Gross per 24 hour Intake 480 ml Output -- Net 480 ml Nutrition Support: Diet Experience & Nutrition History: Diet Education: 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 Pertinent Home Medications: Noted Metabolic Cart Study Results: Nutrition Focused Physical Exam: Physical exam performed on (date): Pending. 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 Status of Nutrition Diagnosis: New Nutrition Interventions and Recommendations: Cont with Clears, rec Advance as tolerated to GI soft diet. Rec Boost Breeze TID to supplement PO. MVI. Record PO intake. Nutrition Monitoring and Goals: Monitor tolerance and adequacy of po intake / enteral infusion, wt changes, bowel fxn, labs, skin integrity; and follow up per acuity Patient will consume >50% of most meals. Acuity Level: 3 Marva Connelly, RD, LD [1] Past Medical History: Diagnosis Date Anxiety COPD (chronic obstructive pulmonary disease) ([facility]) 05/01/2024 Continue Duo nebs q6 SPO2 goal >88% Coronary artery disease Depression GERD (gastroesophageal reflux disease) 05/01/2024 Continue Protonix 40 mg daily History of transfusion Hyperkalemia 05/06/2024 Now resolved, pt with hypokalemia requiring replacement Hypertension On mechanically assisted ventilation ([facility]) 05/06/2024 Arrived to ICU intubated 05/07 extubated to 4LNC 05/08 resolved Tobacco use 05/01/2024 Washery Boss for smoking 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 Complicates all [...] SURGERY Right Tendon repair SHOULDER SURGERY [3] buPROPion XL, 300 mg, Oral, Daily citalopram, 40 mg, Oral, Daily enoxaparin, 40 mg, Subcutaneous, Daily [START ON 09/19/2024] pantoprazole, 40 mg, Oral, Daily piperacillin-tazobactam, 4.5 g, Intravenous, q6h primidone, 50 mg, Oral, q12h sodium chloride, 10 mL, Intravenous, q12h traZODone, 50 mg, Oral, Nightly [4] lactated Ringer's, 75 mL/hr, Last Rate: 75 mL/hr (09/18/24 0904) [5] PRN medications: acetaminophen, oxyCODONE, prochlorperazine OR prochlorperazine, Insert peripheral IV AND Saline lock IV AND sodium chloride AND sodium chloride * Nursing Note - Hallie Rodríguez RN - 09/18/2024 9:17 AM EDT Report given to Kaylee Brush RN patient to be transported to [facility] * Significant Event - Vicky Jessica MD - 09/18/2024 8:30 AM EDT Brief SICU Note: Persistent hypotension with volume resuscitation overnight, so SICU team called for upgrade. On arrival to bedside, patient in NAD, appears peaked and pale, HR in 70s, SBP checked in BUE in 110s. Abdomen benign, minimal LLQ ttp, stoma pink with green stool output in bag. Mucous membranes dry. Plan: - agree with upgrade to SICU - normotensive at this time with SBP in 110s in BUE, will continue with volume resuscitation - follow up lactate - serial abdominal exams Seen and staffed with Dr. Snow. Alphonso Jessica MD Surgical Critical Care Fellow * Significant Event - Alexander Botello MD - 09/18/2024 8:14 AM EDT Nurse alerted me to BP of 73/43 at 6:30. Patient previously had a 500mL bolus with a BP of 81/60 ay 0546. Went to beside. Patient was seatedupright in bed. BP repeated with similar range. Alert and oriented x3. She had tremors but stated she had previously had these. 1L bolus was ordered. 0800: Repeated blood pressure with a smaller cuff. Saw patient again on rounds she was not responding to the bolus of fluids. Plan to transfer to the surgical ICU. Repeat CMP, CBC, and lactate. * Hospital Course - Ann-Marie Vera MD - 09/18/2024 6:42 AM EDT Ms. Rere Reese is a 53 year old female with PMH significant for anxiety, depression, COPD, tobacco abuse, and NSTEMI s/p CABG x 4 on 05/06, and ex lap w/ left colectomy, end colostomy creation on 05/23 for colonic perforation, drain placement by IR on 06/04 for fluid collection in the abdomen (perisplenic) who presented on 09/17/24 from OSH for concerns of increasing abdominal pain and swelling around ostomy. Chart review also notable for C diff infection back in August that was reportedly treated. Ultimately, the patient was admitted to the [facility] floor team for IV antibiotics to treat suspected enteritis. On 09/18, she was upgraded to ICU for hypotension unresponsive to fluids and concern for infection-related shock. Many upfront boluses and mIVF were needed to improve her BP. C diff PCR toxin B positive on 09/18/24 consistent with prior infection and colonization. Negative GI panel. In the ICU, she has been HDS and tolerating a regular diet. Home meds were resumed without problems. De-escalated from Zosyn to PO Augmentin on 09/22 with end date of 09/24 for a 7-day total course (started Zosyn 09/18). She remained admitted at a downgraded status for pain control and pt discomfort/concerns about going home. Prior to discharge pt felt comfortable she could tolerate pain at home. At the time of discharge the patient was hemodynamically stable, tolerating PO, voiding spontaneously, normal bowel function via ostomy, mobilizing appropriately, with their pain controlled with PO medication. At this time, the patient has obtained the maximum benefit from the present hospital stay, and so will be discharged to home. * H&P - Marysol Mancini MD - 09/18/2024 1:12 AM EDT Images from the original note were not included. Subjective Chief complaint Abdominal pain and swelling around ostomy site. History Of Present Illness Ms. Rere Reese is a 53 year old with PMH significant for anxiety, depression, COPD, and tobacco abuse. She initially presented to [facility] on 09/17 and was transferred to for increasing abdominal pain and swelling around her ostomy site the last few days. Her ostomy output has changed from brown and formed to yellow/green and liquid. She endorses nausea but no vomiting.She eats a low fiber diet at home and has had decreasing appetite due to pain. She recently had an extended hospital course at from April-June for an NSTEMI after which she hada CABG x 4 on 05/06. Postoperative course complicated by ileus s/p exploratory lap, extended left colectomy and end colostomy creation on 05/23 for colonic perforation. This was followed by US guided drain placement by IR on 06/04 for fluid collection in the abdomen (perisplenic). In August, she also hadon going c/f C. Diff which was treated. Medical/Surgical/Social/Family History Past Medical History: Diagnosis Date Anxiety COPD (chronic obstructive pulmonary disease) ([facility]) 05/01/2024 Continue Duo nebs q6 SPO2 goal >88% Coronary artery disease Depression GERD (gastroesophageal reflux disease) 05/01/2024 Continue Protonix 40 mg daily History of transfusion Hyperkalemia 05/06/2024 Now resolved, pt with hypokalemia requiring replacement Hypertension On mechanically assisted ventilation ([facility]) 05/06/2024 Arrived to ICU intubated 05/07 extubated to 4LNC 05/08 resolved Tobacco use 05/01/2024 Washery Boss for smoking 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 Complicates all aspects of care and recovery Tremor 05/01/2024 Continue home primidone 50 mg BID Past Surgical History: Procedure Laterality Date ABDOMINAL ADHESION SURGERY SECTION, CLASSIC CHOLECYSTECTOMY CORONARY ARTERY BYPASS GRAFT 05/06/2024 Coronary artery bypass grafting x4 with FRIEND to LAD as a free graft, reverse saphenous vein graft sequential to ramus intermedius artery then to obtuse marginal artery 1, reverse saphenous vein graftto PDA.(Reda) HAND SURGERY Right Tendon repair SHOULDER SURGERY Social History Tobacco Use Smoking status: Former Current packs/day: 0.00 Types: Cigarettes Quit date: 04/30/2024 Years since quittin.3 Smokeless tobacco: Never Vaping Use Vaping status: Never Used Substance Use Topics Alcohol use: Not Currently Drug use: Not Currently Family History Problem Relation Name Age of Onset Heart disease Father Travel History Relevant International Travel History: Travel Screening Question Response Have you been in contact with someone who was sick? No / Unsure Do you have any of the following new or worsening symptoms? None of these Have you traveled internationally or domestically in the last month? No Travel History Travel since 08/18/24 No documented travel since 08/18/24 Relevant Domestic Travel History: Immunizations VACCINE / DOSE Flu Tetanus Pneumovax Shingles Allergies Latex Medications Current Facility-Administered Medications Medication Dose Route Frequency Provider Last Rate Last Admin acetaminophen (Tylenol) tablet 1,000 mg 1,000 mg Oral q6h PRN Femi Lindo MD 1,000 mg at 09/18/24 1256 buPROPion XL (Wellbutrin XL) 24 hr tablet 300 mg 300 mg Oral Daily Dillon Ace DO 300 mg at 09/18/24 0904 calcium chloride 10 % injection 1 g 1 g Intravenous Once Cheryl Aguirre MD citalopram (CeleXA) tablet 40 mg 40 mg Oral Daily Dillon Ace DO 40 mg at 09/18/24 0904 enoxaparin (Lovenox) syringe 40 mg 40 mg Subcutaneous Daily Cheryl Aguirre MD 40 mg at 09/18/24 1556 lactated Ringer's infusion 75 mL/hr Intravenous Continuous Femi Lindo MD 75 mL/hr at 09/18/24 0904 75 mL/hr at 09/18/24 0904 magnesium sulfate in D5W IVPB 1 g 1 g Intravenous Once Cheryl Aguirre MD 1 g at 09/18/24 1837 oxyCODONE (Roxicodone) immediate release tablet 5 mg 5 mg Oral q4h PRN Femi Lindo MD 5 mg at 09/18/24 183 [START ON 09/19/2024] pantoprazole (Protonix) EC tablet 40 mg 40 mg Oral Daily Cheryl Aguirre MD piperacillin-tazobactam (Zosyn) 4.5 g in sodium chloride 0.9% 100 mL IVPB (vial adapter required) 4.5 g Intravenous q6h Dillon Ace DO 36.7 mL/hr at 09/18/24 1552 4.5 g at 09/18/24 1552 primidone (Mysoline) tablet 50 mg 50 mg Oral BID Cheryl Aguirre MD prochlorperazine (Compazine) tablet 5 mg 5 mg Oral q6h PRN Femi Lindo MD Or prochlorperazine (Compazine) injection 5 mg 5 mg Intramuscular q6h PRN Femi Lindo MD sodium chloride 0.9 % flush 10 mL 10 mL Intravenous q12h Femi Lindo MD 10 mL at 09/18/24 1450 And sodium chloride 0.9 % flush 10 mL 10 mL Intravenous PRN Femi Lindo MD traZODone (Desyrel) tablet 50 mg 50 mg Oral Nightly Dillon Ace DO 50 mg at 09/18/24 0156 Objective Review of Systems Constitutional: Positive for appetite change, fatigue and fever. Negative for activity change, chills and unexpected weight change. HENT: Negative. Eyes: Negative. Respiratory: Negative. Cardiovascular: Negative. Gastrointestinal: Positive for abdominal pain and nausea. Negative for vomiting. Genitourinary: Negative. Musculoskeletal: Negative. Skin: Negative. Neurological: Negative for dizziness, light-headedness and headaches. Physical Exam Constitutional: Appearance: Normal appearance. She is normal weight. HENT: Head: Normocephalic and atraumatic. Nose: Nose normal. Mouth/Throat: Mouth: Mucous membranes are moist. Pharynx: Oropharynx is clear. Eyes: Extraocular Movements: Extraocular movements intact. Conjunctiva/sclera: Conjunctivae normal. Pupils: Pupils are equal, round, and reactive to light. Cardiovascular: Rate and Rhythm: Regular rhythm. Tachycardia present. Heart sounds: Normal heart sounds. No murmur heard. No friction rub. No gallop. Pulmonary: Effort: Pulmonary effort is normal. No respiratory distress. Breath sounds: Normal breath sounds. Abdominal: General: Abdomen is flat. There is no distension. Tenderness: There is no abdominal tenderness. There is no guarding or rebound. Comments: Firm diffusely, well healed midline abd incision, Colostomy with ostomy bag in place. Musculoskeletal: General: Normal range of motion. Cervical back: Normal range of motion. Skin: General: Skin is warm and dry. Neurological: General: No focal deficit present. Mental Status: She is alert and oriented to person, place, and time. Cranial Nerves: No cranial nerve deficit. Psychiatric: Mood and Affect: Mood normal. Behavior: Behavior normal. Thought Content: Thought content normal. Judgment: Judgment normal. Last Recorded Vitals Blood pressure 96/65, pulse 104, temperature 36.7 ??C (98.1 ??F), temperature source Oral, resp. rate 18, height 1.52 m (4' 11.84 ), weight 52.5 kg (115 lb 11.9 oz), SpO2 92%. Results Review {Vanishing Link Review Results :[id number] I have reviewed the latest lab and imaging results with the following pertinent results: ECG 09/18 significant for prolonged QT(chronic) and IRBBB (chronic). CTA abd & pelvis 09/17 significant for atherosclerosis calcification of celiac and edema in bowel Latest Reference Range & Units 09/18/24 02:19 WBC 3.70 - 10.30 10*3/uL 15.28 (H) RBC 3.90 - 5.20 10*6/uL 3.80 (L) Hemoglobin 11.2 - 15.7 g/dL 10.6 (L) Hematocrit 34.0 - 45.0 % 33.1 (L) Platelet Count 155 - 369 10*3/uL 468 (H) MCV 79 - 98 fL 87 MCH 26.0 - 32.0 pg 27.9 MCHC 30.7 - 35.5 g/dL 32.0 RDW 11.5 - 14.5 % 14.9 (H) MPV 8.8 - 12.5 fL 9.0 nRBC <=0.0 per 100 WBCs 0.0 Assessment & Plan Enteritis -Empiric antibiotics -f/u GI panel and C. Diff PCR -Consider GI consult given recurrent inflammation in same segment of ileum Leukocytosis Abx as above, trend and monitor Volume depletion, unspecified Receiving IV fluid bolus Right lower quadrant abdominal pain Monitor exam, abx as above Coronary artery disease with history of myocardial infarction without history of CABG Holding home metoprolol at this time due to soft blood pressures, resume when able History of infection of intestine due to Clostridium difficile Recheck c-diff pending. Prolonged Q-T interval on ECG -Avoid medications that could worsen issue Ms. Rere Reese is a 53 year old with recent CABG x 4 on 05/06 complicated by post-op ileus. S/p extended left hemicolectomy and end transverse colostomy creation on 05/23 for colonic perforation. This was followed by abd fluid collection (perisplenic) 06/04. CT scans in July showed terminal ileitis. Unclear based on persistence of symptoms if these findings have resolved. In August, she also had on going c/f C. Diff, which was treated. She has had increasing abdominal pain and swelling aroundher ostomy site the last few days. Her ostomy output has changed from brown and formed to yellow/green and liquid. She endorses nausea but no vomiting. Medically Ready for Discharge:Anticipated in 2-4 Days I have seen and examined the patient with the resident/fellow/VIRGINIE. I discussed the case with the resident/fellow/VIRGINIE and agree with the findings and plan as documented. * Care Plan - Mendy Matthews RN - 09/18/2024 12:25 AM EDT Problem: Adult Inpatient Plan of Care Goal: Plan of Care Review Outcome: Ongoing, Progressing Flowsheets (Taken 09/18/2024 0024) Progress: no change Outcome Evaluation: pt arrived to unit from [facility], went over plan of care with pt. Plan of Care Reviewed With: patient Goal: Patient-Specific Goal (Individualized) Outcome: Ongoing, Progressing Goal: Absence of Hospital-Acquired Illness or Injury Outcome: Ongoing, Progressing Goal: Optimal Comfort and Wellbeing Outcome: Ongoing, Progressing Problem: Fall Injury Risk Goal: Absence of Fall and Fall-Related Injury Outcome: Ongoing, Progressing documented in this encounter Plan of Treatment Upcoming Encounters Date Type Department Care Team (Late st Contact Info) Description 11/06/2024 11:00 AM EDT Office Visit [facility] General Surgery [address] [place] [address] Lidia Troncoso MD [address] [place] [address] documented as of this encounter [...] Procedure Name Priority Date/Time Associated Diagnosis Comments CBC W/O DIFFERENTIAL Routine 09/23/2024 1:08 AM EDT PHOSPHORUS, PLASMA Routine 09/23/2024 1: 08 AM EDT MAGNESIUM, PLASMA Routine 09/23/2024 1:0 8 AM EDT BASIC METABOLIC PANEL, PLASMA Routine 09/23/2024 1:08 AM EDT POCT GLUCOSE METER UNSOLICITED RESULTS Routine 09/22/2024 9:43 PM EDT POCT GLUCOSE METER UNSOLICITED RESULTS Routine 09/22/2024 1:56 PM EDT POCT GLUCOSE METER UNSOLICITED RESULTS Routine 09/22/2024 8:55 AM EDT POCT GLUCOSE METER UNSOLICITED RESULTS Routine 09/22/2024 3:52 AM EDT CBC W/O DIFFERENTIAL Routine 09/22/2024 3:51 AM EDT PHOSPHORUS, PLASMA Routine 09/22/2024 3: 51 AM EDT MAGNESIUM, PLASMA Routine 09/22/2024 3:5 1 AM EDT BASIC METABOLIC PANEL, PLASMA Routine 09/22/2024 3:51 AM EDT POCT GLUCOSE METER UNSOLICITED RESULTS Routine 09/22/2024 12:17 AM EDT POCT GLUCOSE METER UNSOLICITED RESULTS Routine 09/21/2024 11:43 PM EDT POCT GLUCOSE METER UNSOLICITED RESULTS Routine 09/21/2024 9:35 PM EDT POCT GLUCOSE METER UNSOLICITED RESULTS Routine 09/21/2024 5:37 PM EDT POCT GLUCOSE METER UNSOLICITED RESULTS Routine 09/21/2024 12:36 PM EDT POCT GLUCOSE METER UNSOLICITED RESULTS Routine 09/21/2024 9:51 AM EDT POCT GLUCOSE METER UNSOLICITED RESULTS Routine 09/21/2024 4:53 AM EDT POCT GLUCOSE METER UNSOLICITED RESULTS Routine 09/21/2024 4:19 AM EDT POCT GLUCOSE METER UNSOLICITED RESULTS Routine 09/21/2024 1:35 AM EDT POCT GLUCOSE METER UNSOLICITED RESULTS Routine 09/20/2024 10:51 PM EDT POCT GLUCOSE METER UNSOLICITED RESULTS Routine 09/20/2024 10:13 PM EDT POCT GLUCOSE METER UNSOLICITED RESULTS Routine 09/20/2024 3:01 PM EDT MULTI DRUG RESISTANCE TEST Routine 09/20/2024 11:00 AM EDT MULTI DRUG RESISTANCE TEST Routine 09/20/2024 11:00 AM EDT POCT GLUCOSE METER UNSOLICITED RESULTS Routine 09/20/2024 10:59 AM EDT POCT GLUCOSE METER UNSOLICITED RESULTS Routine 09/20/2024 10:32 AM EDT POTASSIUM, PLASMA Routine 09/20/2024 9:5 4 AM EDT POCT GLUCOSE METER UNSOLICITED RESULTS Routine 09/20/2024 9:52 AM EDT POCT GLUCOSE METER UNSOLICITED RESULTS Routine 09/20/2024 7:57 AM EDT POCT GLUCOSE METER UNSOLICITED RESULTS Routine 09/20/2024 6:56 AM EDT POCT GLUCOSE METER UNSOLICITED RESULTS Routine 09/20/2024 6:28 AM EDT SIMI AURIS SURVEILLANCE BY PCR Routine 09/20/2024 1:33 AM EDT CBC W/O DIFFERENTIAL Routine 09/20/2024 1:33 AM EDT PHOSPHORUS, PLASMA Routine 09/20/2024 1: 33 AM EDT MAGNESIUM, PLASMA Routine 09/20/2024 1:3 3 AM EDT ALBUMIN, PLASMA Add-On 09/20/2024 1:33 AM EDT BASIC METABOLIC PANEL, PLASMA Routine 09/20/2024 1:33 AM EDT POCT GLUCOSE METER UNSOLICITED RESULTS Routine 09/19/2024 11:05 PM EDT URINALYSIS WITH REFLEX MICROSCOPIC AND CULTURE Routine 09/19/2024 8:30 PM EDT URINE FRANCIS PANEL Routine 09/19/2024 8:30 PM EDT POCT GLUCOSE METER UNSOLICITED RESULTS Routine 09/19/2024 6:10 AM EDT POCT GLUCOSE METER UNSOLICITED RESULTS Routine 09/19/2024 5:27 AM EDT POCT GLUCOSE METER UNSOLICITED RESULTS Routine 09/19/2024 2:31 AM EDT CBC W/O DIFFERENTIAL Routine 09/19/2024 12:38 AM EDT PHOSPHORUS, PLASMA Routine 09/19/2024 12 :38 AM EDT MAGNESIUM, PLASMA Routine 09/19/2024 12: 38 AM EDT BASIC METABOLIC PANEL, PLASMA Routine 09/19/2024 12:38 AM EDT INSERT PERIPHERAL IV Routine 09/18/2024 6:33 PM EDT TYPE AND SCREEN Routine 09/18/2024 6:11 PM EDT COMPREHENSIVE METABOLIC PANEL, PLASMA STAT 09/18/2024 6:06 PM EDT PHOSPHORUS, PLASMA Routine 09/18/2024 6: 05 PM EDT MAGNESIUM, PLASMA Routine 09/18/2024 6:0 5 PM EDT BASIC METABOLIC PANEL, PLASMA Routine 09/18/2024 6:05 PM EDT LACTATE, VENOUS STAT 09/18/2024 11:16 AM EDT CBC WITH AUTO DIFFERENTIAL STAT 09/18/2024 11:16 AM EDT ECG ADULT STAT 09/18/2024 9:16 AM EDT CBC W/O DIFFERENTIAL Routine 09/18/2024 2:19 AM EDT PHOSPHORUS, PLASMA Routine 09/18/2024 2: 19 AM EDT MAGNESIUM, PLASMA Routine 09/18/2024 2:1 9 AM EDT BASIC METABOLIC PANEL, PLASMA Routine 09/18/2024 2:19 AM EDT COMPREHENSIVE GI PANEL BY PCR Routine 09/18/2024 2:18 AM EDT CLOSTRIDIODES (CLOSTRIDIUM) DIFFICILE,PCR Routine 09/18/2024 2:18 AM EDT CLOSTRIDIUM DIFFICILE EIA Routine 09/18/2024 2:18 AM EDT ECG ADULT Routine 09/18/2024 1:37 AM EDT documented in this encounter Results * (ABNORMAL) Basic Metabolic Panel, Plasma (09/23/2024 1:08 AM EDT) Glucose, Plasma 95 74 - 99 mg/dL 09/23/2024 1:45 AM EDT [facility] BUN, Plasma 5(L) 7 - 21 mg/dL 09/23/2024 1:45 AM EDT [facility] Creatinine, Plasma 0.69 0.60 - 1.10 mg/dL 09/23/2024 1:45 AM EDT [facility] BUN/Creatinine Ratio 7 09/23/2024 1:45 AM EDT [facility] Sodium, Plasma 137 136 - 145 mmol/L 09/23/2024 1:45 AM EDT [facility] Potassium, Plasma 4.3 3.6 - 4.9 mmol/L 09/23/2024 1:45 AM EDT [facility] Chloride, Plasma 103 97 - 107 mmol/L 09/23/2024 1:45 AM EDT [facility] CO2, Plasma 25 22 - 29 mmol/L 09/23/2024 1:45 AM EDT [facility] Anion Gap 9 6 - 16 mmol/L 09/23/2024 1:45 AM EDT [facility] Total Calcium, Plasma 8.3(L) 8.9 - 10.2 mg/dL 09/23/2024 1:45 AM EDT [facility] eGFRcr 103.3 mL/min/1.7 3m*2 09/23/2024 1:45 AM EDT [facility] Comment:Reported eGFRcr in m L/min/1.73m2 is based the CKD-EPI 2020 equation that does not use a race coefficient. Blood Venous blood specimen / Unknown Venipuncture / Unknown 09/23/2024 1:08 AM EDT 09/23/2024 1:12 AM EDT us Marysol Mancini MD LAB BLOOD ORDERABLES Final Result [facility] [address] [place] [address] * Magnesium, Plasma (09/23/2024 1:08 AM EDT) Pathologist [facility] Magnesium, Plasma 2.1 1.9 - 2.4 mg/dL 09/23/2024 1:45 AM EDT [facility] Blood Venous blood specimen / Unknown Venipuncture / Unknown 09/23/2024 1:08 AM EDT 09/23/2024 1:12 AM EDT us Marysol Mancini MD LAB BLOOD ORDERABLES Final Result Performing Organization Address [facility]/ZIP Co de Phone Number [facility] [address] [place] [address] * (ABNORMAL) CBC W/O Differential (09/23/2024 1:08 AM EDT) [facility] WBC Count 9.97 3.70 - 10.30 10*3/uL LAB HEMATOLOGY METHOD 09/23/2024 1:21 AM EDT [facility] RBC Count 3.98 3.90 - 5.20 10*6/uL LAB HEMATOLOGY METHOD 09/23/2024 1:21 AM EDT [facility] HGB 11.4 11.2 - 15.7 g/dL LAB HEMATOLOGY METHOD 09/23/2024 1:21 AM EDT [facility] HCT 34.5 34.0 - 45.0 % LAB HEMATOLOGY METHOD 09/23/2024 1:21 AM EDT [facility] Platelet Count 444(H) 155 - 369 10*3/uL LAB HEMATOLOGY METHOD 09/23/2024 1:21 AM EDT [facility] MCV 87 79 - 98 fL LAB HEMATOLOGY METHOD 09/23/2024 1:21 AM EDT [facility] MCH 28.6 26.0 - 32.0 pg LAB HEMATOLOGY METHOD 09/23/2024 1:21 AM EDT [facility] MCHC 33.0 30.7 - 35.5 g/dL LAB HEMATOLOGY METHOD 09/23/2024 1:21 AM EDT [facility] RDW 15.3(H) 11.5 - 14.5 % LAB HEMATOLOGY METHOD 09/23/2024 1:21 AM EDT [facility] MPV 9.2 8.8 - 12.5 fL LAB HEMATOLOGY METHOD 09/23/2024 1:21 AM EDT [facility] nRBC 0.0 <=0.0 per 100 WBCs LAB HEMATOLOGY METHOD 09/23/2024 1:21 AM EDT [facility] Blood Venous blood specimen / Unknown Venipuncture / Unknown 09/23/2024 1:08 AM EDT 09/23/2024 1:11 AM EDT us Marysol Mancini MD LAB BLOOD ORDERABLES Final Result Performing Organization Address City/[facility] Co de Phone Number [facility] [address] [place] [address] * (ABNORMAL) Phosphorus, Plasma (09/23/2024 1:08 AM EDT) Phosphorus, Plasma 4.7(H) 2.5 - 4.5 mg/dL 09/23/2024 1:45 AM EDT [facility] Blood Venous blood specimen / Unknown Venipuncture / Unknown 09/23/2024 1:08 AM EDT 09/23/2024 1:12 AM EDT us Marysol Mancini MD LAB BLOOD ORDERABLES Final Result Performing Organization Address City/[facility]/ZIP Co de Phone Number [facility] [address] [place] [address] * (ABNORMAL) POCT glucose meter (09/22/2024 9:43 PM EDT) POCT Glucose 101(H) 74 - 99 mg/dL 09/22/2024 9:44 PM EDT [facility] Comment:Accuracy of a glucos e result obtained from a capillary whole blood specimen relies upon adequate, non-compromised capillary blood flow. If the capillary glucose result is not consistent with the patient's clinical signs and symptoms, glucose testing should be repeated with either an arterial or venous sample on the glucometer or sent to the main labortory for testing. Comment 09/22/2024 9:44 PM EDT [facility] Chief Controller Station ID Kelvin Yousif 09/22/2024 9:44 PM EDT [facility] Device ID [id number] 09/22/2024 9:44 PM EDT [facility] Specimen Type POC Capillary 09/22/2024 9:44 PM EDT [facility] Blood Capillary blood specimen / Unknown 09/22/2024 9:43 PM EDT 09/22/2024 9:44 PM EDT Betty Garcia MD LAB POINT OF CARE TEST DOCKED DEVICE UNSOLICITED RESULTS Final Result Performing Organization Address [facility] Co de Phone Number [facility] [address] [place] [address] * (ABNORMAL) POCT glucose meter (09/22/2024 1:56 PM EDT) POCT Glucose 150(H) 74 - 99 mg/dL 09/22/2024 1:57 PM EDT [facility] Comment:Accuracy of [...] to the main labortory for testing. Comment 09/22/2024 1:57 PM EDT [facility] Chief Controller Station ID Geno Guillory 09/22/2024 1:57 PM EDT [facility] Device ID [id number] 09/22/2024 1:57 PM EDT [facility] Specimen Type POC Capillary 09/22/2024 1:57 PM EDT [facility] Blood Capillary blood specimen / Unknown 09/22/2024 1:56 PM EDT 09/22/2024 1:57 PM EDT us Betty Garcia MD LAB POINT OF CARE TEST DOCKED DEVICE UNSOLICITED RESULTS Final Result Performing Organization Address City/[facility]/ZIP Co de Phone Number [facility] [address] [place] [address] * (ABNORMAL) POCT glucose meter (09/22/2024 8:55 AM EDT) [facility] POCT Glucose 108(H) 74 - 99 mg/dL 09/22/2024 8:56 AM EDT [facility] Comment:Accuracy of [...] to the main labortory for testing. Comment 09/22/2024 8:56 AM EDT [facility] Chief Controller Station ID Geno Guillory 09/22/2024 8:56 AM EDT [facility] Device ID [id number] 09/22/2024 8:56 AM EDT [facility] Specimen Type POC Capillary 09/22/2024 8:56 AM EDT [facility] Blood Capillary blood specimen / Unknown 09/22/2024 8:55 AM EDT 09/22/2024 8:56 AM EDT Betty Garcia MD LAB POINT OF CARE TEST DOCKED DEVICE UNSOLICITED RESULTS Final Result Performing Organization Address City/State/[facility] Co de Phone Number [facility] [address] [place] [address] * POCT glucose meter (09/22/2024 3:52 AM EDT) [facility] POCT Glucose 91 74 - 99 mg/dL 09/22/2024 3:54 AM EDT [facility] Comment:Accuracy of [...] to the main labortory for testing. Comment 09/22/2024 3:54 AM EDT [facility] Chief Controller Station ID Brandie Mason 09/22/2024 3:54 AM EDT [facility] Device ID [id number] 09/22/2024 3:54 AM EDT [facility] Specimen Type POC Venous 09/22/2024 3:54 AM EDT [facility] Blood Venous blood specimen / Unknown 09/22/2024 3:52 AM EDT 09/22/2024 3:54 AM EDT Tere Snow MD LAB POINT OF CARE TEST DOCKED DEVICE UNSOLICITED RESULTS Final Result [facility] [address] [place] [id number] * (ABNORMAL) Basic Metabolic Panel, Plasma (09/22/2024 3:51 AM EDT) [facility] Glucose, Plasma 90 74 - 99 mg/dL 09/22/2024 4:45 AM EDT [facility] BUN, Plasma <3(L) 7 - 21 mg/dL 09/22/2024 4:45 AM EDT [facility] Creatinine, Plasma 0.67 0.60 - 1.10 mg/dL 09/22/2024 4:45 AM EDT [facility] BUN/Creatinine Ratio 09/22/2024 4:45 AM EDT [facility] Comment:Unable to calculate, at least one value is above or below the detection limit. Sodium, Plasma 140 136 - 145 mmol/L 09/22/2024 4:45 AM EDT [facility] Potassium, Plasma 3.6 3.6 - 4.9 mmol/L 09/22/2024 4:45 AM EDT [facility] Chloride, Plasma 106 97 - 107 mmol/L 09/22/2024 4:45 AM EDT [facility] CO2, Plasma 25 22 - 29 mmol/L 09/22/2024 4:45 AM EDT [facility] Anion Gap 9 6 - 16 mmol/L 09/22/2024 4:45 AM EDT [facility] Total Calcium, Plasma 7.9(L) 8.9 - 10.2 mg/dL 09/22/2024 4:45 AM EDT [facility] eGFRcr 104.0 mL/min/1.7 3m*2 09/22/2024 4:45 AM EDT [facility] Comment:Reported eGFRcr in m L/min/1.73m2 is based the CKD-EPI 2020 equation that does not use a race coefficient. Blood Venous blood specimen / Unknown Venipuncture / Unknown 09/22/2024 3:51 AM EDT 09/22/2024 3:58 AM EDT Result [facility] us Tere Snow MD LAB BLOOD ORDERABLES Final Result Performing Organization Address City/[facility] Co de Phone Number [facility] [address] [place] [address] * (ABNORMAL) Phosphorus, Plasma (09/22/2024 3:51 AM EDT) Phosphorus, Plasma 4.7(H) 2.5 - 4.5 mg/dL 09/22/2024 4:38 AM EDT [facility] Blood Venous blood specimen / Unknown Venipuncture / Unknown 09/22/2024 3:51 AM EDT 09/22/2024 3:58 AM EDT us Tere Snow MD LAB BLOOD ORDERABLES Final Result Performing Organization Address [facility] Co de Phone Number [facility] [address] [place] [address] * (ABNORMAL) Magnesium, Plasma (09/22/2024 3:51 AM EDT) [facility] Magnesium, Plasma 1.7(L) 1.9 - 2.4 mg/dL 09/22/2024 4:38 AM EDT [facility] Blood Venous blood specimen / Unknown Venipuncture / Unknown 09/22/2024 3:51 AM EDT 09/22/2024 3:58 AM EDT us Tere Snow MD LAB BLOOD ORDERABLES Final Result Performing Organization Address [facility] Co de Phone Number [facility] [address] [place] [address] * (ABNORMAL) CBC W/O Differential (09/22/2024 3:51 AM EDT) WBC Count 9.01 3.70 - 10.30 10*3/uL LAB HEMATOLOGY METHOD 09/22/2024 4:09 AM EDT [facility] RBC Count 3.71(L) 3.90 - 5.20 10*6/uL LAB HEMATOLOGY METHOD 09/22/2024 4:09 AM EDT [facility] HGB 10.4(L) 11.2 - 15.7 g/dL LAB HEMATOLOGY METHOD 09/22/2024 4:09 AM EDT [facility] HCT 32.6(L) 34.0 - 45.0 % LAB HEMATOLOGY METHOD 09/22/2024 4:09 AM EDT [facility] Platelet Count 447(H) 155 - 369 10*3/uL LAB HEMATOLOGY METHOD 09/22/2024 4:09 AM EDT [facility] MCV 88 79 - 98 fL LAB HEMATOLOGY METHOD 09/22/2024 4:09 AM EDT [facility] MCH 28.0 26.0 - 32.0 pg LAB HEMATOLOGY METHOD 09/22/2024 4:09 AM EDT [facility] MCHC 31.9 30.7 - 35.5 g/dL LAB HEMATOLOGY METHOD 09/22/2024 4:09 AM EDT [facility] RDW 15.1(H) 11.5 - 14.5 % LAB HEMATOLOGY METHOD 09/22/2024 4:09 AM EDT [facility] MPV 9.2 8.8 - 12.5 fL LAB HEMATOLOGY METHOD 09/22/2024 4:09 AM EDT [facility] nRBC 0.0 <=0.0 per 100 WBCs LAB HEMATOLOGY METHOD 09/22/2024 4:09 AM EDT [facility] Blood Venous blood specimen / Unknown Venipuncture / Unknown 09/22/2024 3:51 AM EDT 09/22/2024 4:00 AM EDT us Tere Snow MD LAB BLOOD ORDERABLES Final Result [facility] [address] [place] [address] * (ABNORMAL) POCT glucose meter (09/22/2024 12:17 AM EDT) POCT Glucose 149(H) 74 - 99 mg/dL 09/22/2024 12:19 AM EDT [facility] Comment:Accuracy of [...] to the main labortory for testing. Comment 09/22/2024 12:19 AM EDT [facility] Chief Controller Station ID Mirtha Lewis 12:19 AM EDT [facility] Device ID [id number] 09/22/2024 12:19 AM EDT [facility] Specimen Type POC Capillary 09/22/2024 12:19 AM EDT [facility] Blood Capillary blood specimen / Unknown 09/22/2024 12:17 AM EDT 09/22/2024 12:19 AM EDT Tere Snow MD LAB POINT OF CARE TEST DOCKED DEVICE UNSOLICITED RESULTS Final Result [facility] [address] [place] [address] * POCT glucose meter (09/21/2024 11:43 PM EDT) [facility] POCT Glucose 89 74 - 99 mg/dL 09/21/2024 11:45 PM EDT [facility] Comment:Accuracy of [...] to the main labortory for testing. Comment 09/21/2024 11:45 PM EDT [facility] Chief Controller Station ID Brandie Mason 09/21/2024 11:45 PM EDT [facility] Device ID [id number] 09/21/2024 11:45 PM EDT [facility] Specimen Type POC Capillary 09/21/2024 11:45 PM EDT [facility] Blood Capillary blood specimen / Unknown 09/21/2024 11:43 PM EDT 09/21/2024 11:45 PM EDT Tere Snow MD LAB POINT OF CARE TEST DOCKED DEVICE UNSOLICITED RESULTS Final Result Performing Organization Address [facility] de Phone Number [facility] [address] [place] [address] * (ABNORMAL) POCT glucose meter (09/21/2024 9:35 PM EDT) Pathologist [facility] POCT Glucose 105(H) 74 - 99 mg/dL 09/21/2024 9:37 PM EDT [facility] Comment:Accuracy of [...] to the main labortory for testing. Comment 09/21/2024 9:37 PM EDT [facility] Chief Controller Station ID Brandie Mason 09/21/2024 9:37 PM EDT [facility] Device ID [id number] 09/21/2024 9:37 PM EDT [facility] Specimen Type POC Capillary 09/21/2024 9:37 PM EDT [facility] Blood Capillary blood specimen / Unknown 09/21/2024 9:35 PM EDT 09/21/2024 9:37 PM EDT Tere Snow MD LAB POINT OF CARE TEST DOCKED DEVICE UNSOLICITED RESULTS Final Result Performing Organization Address City/[facility] de Phone Number [facility] [address] [place] [address] * (ABNORMAL) POCT glucose meter (09/21/2024 5:37 PM EDT) POCT Glucose 142(H) 74 - 99 mg/dL 09/21/2024 5:38 PM EDT [facility] Comment:Accuracy of [...] to the main labortory for testing. Comment 09/21/2024 5:38 PM EDT [facility] Chief Controller Station ID Chip Reinoso 09/21/2024 5:38 PM EDT [facility] Device ID [id number] 09/21/2024 5:38 PM EDT [facility] Specimen Type POC Capillary 09/21/2024 5:38 PM EDT [facility] Blood Capillary blood specimen / Unknown 09/21/2024 5:37 PM EDT 09/21/2024 5:38 PM EDT us Tere Snow MD LAB POINT OF CARE TEST DOCKED DEVICE UNSOLICITED RESULTS Final Result Performing Organization Address [facility] Co de Phone Number [facility] [address] [place] [address] * (ABNORMAL) POCT glucose meter (09/21/2024 12:36 PM EDT) POCT Glucose 110(H) 74 - 99 mg/dL 09/21/2024 12:38 PM EDT [facility] Comment:Accuracy of [...] to the main labortory for testing. Comment 09/21/2024 12:38 PM EDT [facility] Chief Controller Station ID Светлана Cazares 12:38 PM EDT [facility] Device ID [id number] 09/21/2024 12:38 PM EDT [facility] Specimen Type POC Capillary 09/21/2024 12:38 PM EDT [facility] Blood Capillary blood specimen / Unknown 09/21/2024 12:36 PM EDT 09/21/2024 12:38 PM EDT us Tere Snow MD LAB POINT OF CARE TEST DOCKED DEVICE UNSOLICITED RESULTS Final Result Performing Organization Address City/[facility]/ZIP Co de Phone Number [facility] [address] [place] [address] * (ABNORMAL) POCT glucose meter (09/21/2024 9:51 AM EDT) [facility] POCT Glucose 117(H) 74 - 99 mg/dL 09/21/2024 9:53 AM EDT [facility] Comment:Accuracy of a glucos e result obtained from a capillary whole blood specimen relies upon adequate, non-compromised capillary blood flow. If the capillary glucose result is not consistent with the patient's clinical signs and symptoms, glucose testing should be repeated with either an arterial or venous sample on the glucometer or sent to the main labortory for testing. Comment 09/21/2024 9:53 AM EDT [facility] Chief Controller Station ID Светлана Cazares 9:53 AM EDT [facility] Device ID [id number] 09/21/2024 9:53 AM EDT [facility] Specimen Type POC Capillary 09/21/2024 9:53 AM EDT [facility] Blood Capillary blood specimen / Unknown 09/21/2024 9:51 AM EDT 09/21/2024 9:53 AM EDT Tere Snow MD LAB POINT OF CARE TEST DOCKED DEVICE UNSOLICITED RESULTS Final Result [facility] [address] [place] [address] * (ABNORMAL) POCT glucose meter (09/21/2024 4:53 AM EDT) [facility] POCT Glucose 147(H) 74 - 99 mg/dL 09/21/2024 4:55 AM EDT [facility] Comment:Accuracy of [...] to the main labortory for testing. Comment 09/21/2024 4:55 AM EDT [facility] Chief Controller Station ID Brandie Mason 09/21/2024 4:55 AM EDT [facility] Device ID [id number] 09/21/2024 4:55 AM EDT [facility] Specimen Type POC Capillary 09/21/2024 4:55 AM EDT [facility] Blood Capillary blood specimen / Unknown 09/21/2024 4:53 AM EDT 09/21/2024 4:55 AM EDT us Tere Snow MD LAB POINT OF CARE TEST DOCKED DEVICE UNSOLICITED RESULTS Final Result Performing Organization Address City/[facility] Co de Phone Number [facility] [address] [place] [address] * POCT glucose meter (09/21/2024 4:19 AM EDT) POCT Glucose 89 74 - 99 mg/dL 09/21/2024 4:22 AM EDT [facility] Comment:Accuracy of a glucos e result obtained from a capillary whole blood specimen relies upon adequate, non-compromised capillary blood flow. If the capillary glucose result is not consistent with the patient's clinical signs and symptoms, glucose testing should be repeated with either an arterial or venous sample on the glucometer or sent to the main labortory for testing. Comment 09/21/2024 4:22 AM EDT [facility] Chief Controller Station ID Brandie Mason 09/21/2024 4:22 AM EDT [facility] Device ID [id number] 09/21/2024 4:22 AM EDT [facility] Specimen Type POC Capillary 09/21/2024 4:22 AM EDT [facility] Blood Capillary blood specimen / Unknown 09/21/2024 4:19 AM EDT 09/21/2024 4:22 AM EDT us Tere Snow MD LAB POINT OF CARE TEST DOCKED DEVICE UNSOLICITED RESULTS Final Result Performing Organization Address City/[facility] Co de Phone Number [facility] [address] [place] [address] * (ABNORMAL) POCT glucose meter (09/21/2024 1:35 AM EDT) POCT Glucose 112(H) 74 - 99 mg/dL 09/21/2024 1:36 AM EDT [facility] Comment:Accuracy of [...] to the main labortory for testing. Comment 09/21/2024 1:36 AM EDT [facility] Chief Controller Station ID Brandie Mason 09/21/2024 1:36 AM EDT [facility] Device ID [id number] 09/21/2024 1:36 AM EDT [facility] Specimen Type POC Capillary 09/21/2024 1:36 AM EDT [facility] Blood Capillary blood specimen / Unknown 09/21/2024 1:35 AM EDT 09/21/2024 1:36 AM EDT us Tere Snow MD LAB POINT OF CARE TEST DOCKED DEVICE UNSOLICITED RESULTS Final Result Performing Organization Address City/State/[facility] Co de Phone Number [facility] [address] [place] [address] * (ABNORMAL) POCT glucose meter (09/20/2024 10:51 PM EDT) POCT Glucose 144(H) 74 - 99 mg/dL 09/20/2024 10:53 PM EDT [facility] Comment:Accuracy of a glucos e result obtained from a capillary whole blood specimen relies upon adequate, non-compromised capillary blood flow. If the capillary glucose result is not consistent with the patient's clinical signs and symptoms, glucose testing should be repeated with either an arterial or venous sample on the glucometer or sent to the main labortory for testing. Comment 09/20/2024 10:53 PM EDT [facility] Chief Controller Station ID Brandie Mason 09/20/2024 10:53 PM EDT [facility] Device ID [id number] 09/20/2024 10:53 PM EDT [facility] Specimen Type POC Capillary 09/20/2024 10:53 PM EDT [facility] Blood Capillary blood specimen / Unknown 09/20/2024 10:51 PM EDT 09/20/2024 10:53 PM EDT us Teer Snow MD LAB POINT OF CARE TEST DOCKED DEVICE UNSOLICITED RESULTS Final Result Performing Organization Address City/[facility]/ZIP Co de Phone Number [facility] [address] [place] [address] * POCT glucose meter (09/20/2024 10:13 PM EDT) POCT Glucose 78 74 - 99 mg/dL 09/20/2024 10:16 PM EDT [facility] Comment:Accuracy of [...] to the main labortory for testing. Comment 09/20/2024 10:16 PM EDT [facility] Chief Controller Station ID Brandie Mason 09/20/2024 10:16 PM EDT [facility] Device ID [id number] 09/20/2024 10:16 PM EDT [facility] Specimen Type POC Capillary 09/20/2024 10:16 PM EDT [facility] Blood Capillary blood specimen / Unknown 09/20/2024 10:13 PM EDT 09/20/2024 10:16 PM EDT Tere Snow MD LAB POINT OF CARE TEST DOCKED DEVICE UNSOLICITED RESULTS Final Result Performing Organization Address [facility] Co de Phone Number [facility] [address] [place] [address] * POCT glucose meter (09/20/2024 3:01 PM EDT) Pathologist [facility] POCT Glucose 97 74 - 99 mg/dL 09/20/2024 3:03 PM EDT [facility] Comment:Accuracy of [...] to the main labortory for testing. Comment 09/20/2024 3:03 PM EDT [facility] Chief Controller Station ID Vee Patel 09/20/2024 3:03 PM EDT [facility] Device ID [id number] 09/20/2024 3:03 PM EDT [facility] Specimen Type POC Capillary 09/20/2024 3:03 PM EDT [facility] Blood Capillary blood specimen / Unknown 09/20/2024 3:01 PM EDT 09/20/2024 3:03 PM EDT Tere Snow MD LAB POINT OF CARE TEST DOCKED DEVICE UNSOLICITED RESULTS Final Result Performing Organization Address [facility] Co de Phone Number [facility] [address] [place] [address] * Multi Drug Resistance Test (09/20/2024 11:00 AM EDT) Culture No growth at day 1 09/21/2024 12:22 PM EDT [facility] Swab (Nares and Jacey Rectal) Non-blood Collection / Unknown 09/20/2024 11:00 AM EDT 09/20/2024 11:14 AM EDT Narrative [facility] - 09/21/2024 12:22 PM EDT This test was developed and its performance characteristics determined by the [facility]. Although the media is FDA-approved, it is not FDA-approved for all specimen types submitted. The FDA has determined that such clearance or approval is not necessary. This test is used for surveillance purposes. It should not be regarded as investigational or for research. The [facility] Clinical Microbiology Laboratory is certified under the Clinical Laboratory Improvement Amendments of 1988 (CLIA-88) as qualified to perform high complexity clinical laboratory testing. us Tere Snow MD LAB MICROBIOLOGY - GENERAL ORDERABLES Final Result Performing Organization Address City/[facility]/ZIP Co de Phone Number [facility] [address] [place] [address] * Multi Drug Resistance Test (09/20/2024 11:00 AM EDT) Culture No growth at day 1 09/21/2024 12:22 PM EDT [facility] Swab (Nares and Jacey Rectal) Non-blood Collection / Unknown 09/20/2024 11:00 AM EDT 09/20/2024 11:17 AM EDT Narrative [facility] - 09/21/2024 12:22 PM EDT This test was developed and its performance characteristics determined by the [facility]biology [facility]. Although the media is FDA-approved, it is not FDA-approved for all specimen types submitted. The FDA has determined that such clearance or approval is not necessary. This test is used for surveillance purposes. It should not be regarded as investigational or for research. The [facility] is certified under the Clinical Laboratory Improvement Amendments of 1988 (CLIA-88) as qualified to perform high complexity clinical laboratory testing. us Tere Snow MD LAB MICROBIOLOGY - GENERAL ORDERABLES Final Result [facility] [address] [place] [address] * (ABNORMAL) POCT glucose meter (09/20/2024 10:59 AM EDT) POCT Glucose 127(H) 74 - 99 mg/dL 09/20/2024 11:00 AM EDT [facility] Comment:Accuracy of a glucos e result obtained from a capillary whole blood specimen relies upon adequate, non-compromised capillary blood flow. If the capillary glucose result is not consistent with the patient's clinical signs and symptoms, glucose testing should be repeated with either an arterial or venous sample on the glucometer or sent to the main labortory for testing. Comment 09/20/2024 11:00 AM EDT [facility] Chief Controller Station ID Marysol Lopez 11:00 AM EDT [facility] Device ID [id number] 09/20/2024 11:00 AM EDT [facility] Specimen Type POC Capillary 09/20/2024 11:00 AM EDT [facility] Blood Capillary blood specimen / Unknown 09/20/2024 10:59 AM EDT 09/20/2024 11:00 AM EDT us Tere Snow MD LAB POINT OF CARE TEST DOCKED DEVICE UNSOLICITED RESULTS Final Result [facility] [address] [place] [address] * (ABNORMAL) POCT glucose meter (09/20/2024 10:32 AM EDT) POCT Glucose 64(L) 74 - 99 mg/dL 09/20/2024 10:33 AM EDT [facility] Comment:Accuracy of a glucos e result obtained from a capillary whole blood specimen relies upon adequate, non-compromised capillary blood flow. If the capillary glucose result is not consistent with the patient's clinical signs and symptoms, glucose testing should be repeated with either an arterial or venous sample on the glucometer or sent to the main labortory for testing. Comment 09/20/2024 10:33 AM EDT [facility] Chief Controller Station ID Marysol Lopez 10:33 AM EDT [facility] Device ID [id number] 09/20/2024 10:33 AM EDT [facility] Specimen Type POC Capillary 09/20/2024 10:33 AM EDT [facility] Blood Capillary blood specimen / Unknown 09/20/2024 10:32 AM EDT 09/20/2024 10:33 AM EDT us Tere Snow MD LAB POINT OF CARE TEST DOCKED DEVICE UNSOLICITED RESULTS Final Result Performing Organization Address City/[facility]/ZIP Co de Phone Number [facility] [address] [place] [address] * Potassium level repeated 2 hours after the total replacement is complete (09/20/2024 9:54 AM EDT) Potassium, Plasma 4.7 3.6 - 4.9 mmol/L 09/20/2024 10:43 AM EDT [facility] Comment:Hemolyzed, result ma y be falsely increased. Blood Venous blood specimen / Unknown Venipuncture / Unknown 09/20/2024 9:54 AM EDT 09/20/2024 9:59 AM EDT us Tere Snow MD LAB BLOOD ORDERABLES Final Result [facility] [address] [place] [address] * (ABNORMAL) POCT glucose meter (09/20/2024 9:52 AM EDT) [facility] POCT Glucose 67(L) 74 - 99 mg/dL 09/20/2024 9:56 AM EDT [facility] Comment:Accuracy of [...] to the main labortory for testing. Comment 09/20/2024 9:56 AM EDT [facility] Chief Controller Station ID Marysol Lopez 9:56 AM EDT [facility] Device ID [id number] 09/20/2024 9:56 AM EDT [facility] Specimen Type POC Venous 09/20/2024 9:56 AM EDT [facility] Blood Venous blood specimen / Unknown 09/20/2024 9:52 AM EDT 09/20/2024 9:56 AM EDT Tere Snow MD LAB POINT OF CARE TEST DOCKED DEVICE UNSOLICITED RESULTS Final Result Performing Organization Address City/[facility] Co de Phone Number [facility] [address] [place] [address] * POCT glucose meter (09/20/2024 7:57 AM EDT) [facility] POCT Glucose 96 74 - 99 mg/dL 09/20/2024 7:59 AM EDT [facility] Comment:Accuracy of [...] to the main labortory for testing. Comment 09/20/2024 7:59 AM EDT [facility] Chief Controller Station ID Vee Patel 09/20/2024 7:59 AM EDT [facility] Device ID [id number] 09/20/2024 7:59 AM EDT [facility] Specimen Type POC Capillary 09/20/2024 7:59 AM EDT [facility] Blood Capillary blood specimen / Unknown 09/20/2024 7:57 AM EDT 09/20/2024 7:59 AM EDT Tere Snow MD LAB POINT OF CARE TEST DOCKED DEVICE UNSOLICITED RESULTS Final Result Performing Organization Address City/[facility] Co de Phone Number [facility] [address] [place] [address] * (ABNORMAL) POCT glucose meter (09/20/2024 6:56 AM EDT) [facility] POCT Glucose 132(H) 74 - 99 mg/dL 09/20/2024 6:58 AM EDT [facility] Comment:Accuracy of [...] to the main labortory for testing. Comment 09/20/2024 6:58 AM EDT [facility] Chief Controller Station ID Kelvin Yousif 09/20/2024 6:58 AM EDT [facility] Device ID [id number] 09/20/2024 6:58 AM EDT [facility] Specimen Type POC Capillary 09/20/2024 6:58 AM EDT [facility] Blood Capillary blood specimen / Unknown 09/20/2024 6:56 AM EDT 09/20/2024 6:58 AM EDT us Tere Snow MD LAB POINT OF CARE TEST DOCKED DEVICE UNSOLICITED RESULTS Final Result Performing Organization Address City/[facility] Co de Phone Number [facility] [address] [place] [address] * POCT glucose meter (09/20/2024 6:28 AM EDT) Pathologist [facility] POCT Glucose 81 74 - 99 mg/dL 09/20/2024 6:30 AM EDT [facility] Comment:Accuracy of a glucos e result obtained from a capillary whole blood specimen relies upon adequate, non-compromised capillary blood flow. If the capillary glucose result is not consistent with the patient's clinical signs and symptoms, glucose testing should be repeated with either an arterial or venous sample on the glucometer or sent to the main labortory for testing. Comment 09/20/2024 6:30 AM EDT [facility] Chief Controller Station ID Kelvin Yousif 09/20/2024 6:30 AM EDT [facility] Device ID [id number] 09/20/2024 6:30 AM EDT [facility] Specimen Type POC Capillary 09/20/2024 6:30 AM EDT [facility] Blood Capillary blood specimen / Unknown 09/20/2024 6:28 AM EDT 09/20/2024 6:30 AM EDT us Tere Snow MD LAB POINT OF CARE TEST DOCKED DEVICE UNSOLICITED RESULTS Final Result Performing Organization Address City/[facility]/ZIP Co de Phone Number [facility] [address] [place] [address] * (ABNORMAL) Albumin (09/20/2024 1:33 AM EDT) [facility] Albumin, Plasma 2.6(L) 3.5 - 5.2 g/dL 09/20/2024 7:05 AM EDT [facility] Blood Venous blood specimen / Unknown Venipuncture / Unknown 09/20/2024 1:33 AM EDT 09/20/2024 2:37 AM EDT us Tere Snow MD LAB BLOOD ORDERABLES Final Result [facility] [address] [place] [address] * Simi auris Surveillance by PCR (09/20/2024 1:33 AM EDT) [facility] Simi auris PCR Result Not Detected Not Detected 09/20/2024 12:58 PM EDT [facility] Swab (Axilla and Groin) Non-blood Collection / Unknown 09/20/2024 1:33 AM EDT 09/20/2024 3:41 AM EDT Narrative [facility] - 09/20/2024 12:58 PM EDT This PCR assay was developed and its performance characteristics determined by [facility] as appropriate for clinical purposes. This assay has not been cleared or approved by the FDA, but is performed in a CLIA regulated laboratory that is qualified to perform high-complexity testing. us Tere Snow MD LAB MICROBIOLOGY - GENERAL ORDERABLES Final Result [facility] [address] [place] [address] * Phosphorus, Plasma (09/20/2024 1:33 AM EDT) Phosphorus, Plasma 4.1 2.5 - 4.5 mg/dL 09/20/2024 3:12 AM EDT [facility] Blood Venous blood specimen / Unknown Venipuncture / Unknown 09/20/2024 1:33 AM EDT 09/20/2024 2:37 AM EDT us Tere Snow MD LAB BLOOD ORDERABLES Final Result Performing Organization Address [facility]/ZIP Co de Phone Number [facility] [address] [place] [address] * Magnesium, Plasma (09/20/2024 1:33 AM EDT) Magnesium, Plasma 1.9 1.9 - 2.4 mg/dL 09/20/2024 3:12 AM EDT [facility] Blood Venous blood specimen / Unknown Venipuncture / Unknown 09/20/2024 1:33 AM EDT 09/20/2024 2:37 AM EDT Result [facility] us Tere Snow MD LAB BLOOD ORDERABLES Final Result Performing Organization Address City/[facility]/ZIP Co de Phone Number [facility] [address] [place] [address] * (ABNORMAL) CBC W/O Differential (09/20/2024 1:33 AM EDT) WBC Count 10.06 3.70 - 10.30 10*3/uL LAB HEMATOLOGY METHOD 09/20/2024 2:49 AM EDT [facility] RBC Count 3.40(L) 3.90 - 5.20 10*6/uL LAB HEMATOLOGY METHOD 09/20/2024 2:49 AM EDT [facility] HGB 9.6(L) 11.2 - 15.7 g/dL LAB HEMATOLOGY METHOD 09/20/2024 2:49 AM EDT [facility] HCT 29.4(L) 34.0 - 45.0 % LAB HEMATOLOGY METHOD 09/20/2024 2:49 AM EDT [facility] Platelet Count 413(H) 155 - 369 10*3/uL LAB HEMATOLOGY METHOD 09/20/2024 2:49 AM EDT [facility] MCV 87 79 - 98 fL LAB HEMATOLOGY METHOD 09/20/2024 2:49 AM EDT [facility] MCH 28.2 26.0 - 32.0 pg LAB HEMATOLOGY METHOD 09/20/2024 2:49 AM EDT [facility] MCHC 32.7 30.7 - 35.5 g/dL LAB HEMATOLOGY METHOD 09/20/2024 2:49 AM EDT [facility] RDW 15.1(H) 11.5 - 14.5 % LAB HEMATOLOGY METHOD 09/20/2024 2:49 AM EDT [facility] MPV 9.4 8.8 - 12.5 fL LAB HEMATOLOGY METHOD 09/20/2024 2:49 AM EDT [facility] nRBC 0.0 <=0.0 per 100 WBCs LAB HEMATOLOGY METHOD 09/20/2024 2:49 AM EDT [facility] Blood Venous blood specimen / Unknown Venipuncture / Unknown 09/20/2024 1:33 AM EDT 09/20/2024 2:37 AM EDT us Tere Snow MD LAB BLOOD ORDERABLES Final Result [facility] [address] [place] [address] * (ABNORMAL) Basic Metabolic Panel, Plasma (09/20/2024 1:33 AM EDT) Glucose, Plasma 93 74 - 99 mg/dL 09/20/2024 3:12 AM EDT [facility] BUN, Plasma <3(L) 7 - 21 mg/dL 09/20/2024 3:12 AM EDT [facility] Creatinine, Plasma 0.64 0.60 - 1.10 mg/dL 09/20/2024 3:12 AM EDT [facility] BUN/Creatinine Ratio 09/20/2024 3:12 AM EDT [facility] Comment:Unable to calculate, at least one value is above or below the detection limit. Sodium, Plasma 139 136 - 145 mmol/L 09/20/2024 3:12 AM EDT [facility] Potassium, Plasma 3.3(L) 3.6 - 4.9 mmol/L 09/20/2024 3:12 AM EDT [facility] Chloride, Plasma 105 97 - 107 mmol/L 09/20/2024 3:12 AM EDT [facility] CO2, Plasma 26 22 - 29 mmol/L 09/20/2024 3:12 AM EDT [facility] Anion Gap 8 6 - 16 mmol/L 09/20/2024 3:12 AM EDT [facility] Total Calcium, Plasma 7.8(L) 8.9 - 10.2 mg/dL 09/20/2024 3:12 AM EDT [facility] eGFRcr 105.2 mL/min/1.7 3m*2 09/20/2024 3:12 AM EDT [facility] Comment:Reported eGFRcr in m L/min/1.73m2 is based the CKD-EPI 2020 equation that does not use a race coefficient. Blood Venous blood specimen / Unknown Venipuncture / Unknown 09/20/2024 1:33 AM EDT 09/20/2024 2:37 AM EDT Tere Snow MD LAB BLOOD ORDERABLES Final Result [facility] [address] [place] [address] * POCT glucose meter (09/19/2024 11:05 PM EDT) [facility] POCT Glucose 98 74 - 99 mg/dL 09/19/2024 11:06 PM EDT [facility] Comment:Accuracy of [...] to the main labortory for testing. Comment 09/19/2024 11:06 PM EDT [facility] Chief Controller Station ID Kelvin Yousif 09/19/2024 11:06 PM EDT [facility] Device ID [id number] 09/19/2024 11:06 PM EDT [facility] Specimen Type POC Capillary 09/19/2024 11:06 PM EDT [facility] Blood Capillary blood specimen / Unknown 09/19/2024 11:05 PM EDT 09/19/2024 11:06 PM EDT Tere Snow MD LAB POINT OF CARE TEST DOCKED DEVICE UNSOLICITED RESULTS Final Result [facility] [address] [place] [address] * Urine Francis Panel (09/19/2024 8:30 PM EDT) [facility] Extra Reflex urine culture not indicated 09/20/2024 5:01 AM EDT [facility] Comment: Previously prelim verified as Specimen evaluation in progress on 09/19/2024 at 2201 EDT. Previously prelim verified as Specimen evaluation in progress on 09/19/2024 at 2301 EDT. Previously prelim verified as Specimen evaluation in progress on 09/20/2024 at 0001 EDT. Previously prelim verified as Specimen evaluation in progress on 09/20/2024 at 0103 EDT. Previously prelim verified as Specimen evaluation in progress on 09/20/2024 at 0201 EDT. Previously prelim verified as Specimen evaluation in progress on 09/20/2024 at 0301 EDT. Previously prelim verified as Specimen evaluation in progress on 09/20/2024 at 0403 EDT. Urine Urine specimen obtained by clean catch procedure / Unknown Non-blood Collection / Unknown 09/19/2024 8:30 PM EDT 09/19/2024 8:40 PM EDT us Betty Garcia MD LAB URINE ORDERABLES Final Result Performing Organization Address City/[facility]/ZIP Co de Phone Number [facility] [address] [place] [address] * (ABNORMAL) POCT glucose meter (09/19/2024 6:10 AM EDT) POCT Glucose 138(H) 74 - 99 mg/dL 09/19/2024 6:11 AM EDT [facility] Comment:Accuracy of a glucos e result obtained from a capillary whole blood specimen relies upon adequate, non-compromised capillary blood flow. If the capillary glucose result is not consistent with the patient's clinical signs and symptoms, glucose testing should be repeated with either an arterial or venous sample on the glucometer or sent to the main labortory for testing. Comment 09/19/2024 6:11 AM EDT [facility] Chief Controller Station ID Sarah Johnson 09/19/2024 6:11 AM EDT [facility] Device ID [id number] 09/19/2024 6:11 AM EDT [facility] Specimen Type POC Capillary 09/19/2024 6:11 AM EDT [facility] Blood Capillary blood specimen / Unknown 09/19/2024 6:10 AM EDT 09/19/2024 6:11 AM EDT us Tere Snow MD LAB POINT OF CARE TEST DOCKED DEVICE UNSOLICITED RESULTS Final Result Performing Organization Address City/[facility]/ZIP Co de Phone Number [facility] [address] [place] [address] * (ABNORMAL) POCT glucose meter (09/19/2024 5:27 AM EDT) POCT Glucose 66(L) 74 - 99 mg/dL 09/19/2024 5:29 AM EDT [facility] Comment:Accuracy of [...] to the main labortory for testing. Comment 09/19/2024 5:29 AM EDT [facility] Chief Controller Station ID Sarah Johnson 09/19/2024 5:29 AM EDT [facility] Device ID [id number] 09/19/2024 5:29 AM EDT [facility] Specimen Type POC Capillary 09/19/2024 5:29 AM EDT [facility] Blood Capillary blood specimen / Unknown 09/19/2024 5:27 AM EDT 09/19/2024 5:29 AM EDT Tere Snow MD LAB POINT OF CARE TEST DOCKED DEVICE UNSOLICITED RESULTS Final Result Performing Organization Address City/State/[facility] Co de Phone Number [facility] [address] [place] [address] * (ABNORMAL) POCT glucose meter (09/19/2024 2:31 AM EDT) [facility] Signature POCT Glucose 103(H) 74 - 99 mg/dL 09/19/2024 2:33 AM EDT [facility] Comment:Accuracy of a glucos e result obtained from a capillary whole blood specimen relies upon adequate, non-compromised capillary blood flow. If the capillary glucose result is not consistent with the patient's clinical signs and symptoms, glucose testing should be repeated with either an arterial or venous sample on the glucometer or sent to the main labortory for testing. Comment 09/19/2024 2:33 AM EDT [facility] Chief Controller Station ID Sarah Johnson 09/19/2024 2:33 AM EDT [facility] Device ID [id number] 09/19/2024 2:33 AM EDT [facility] Specimen Type POC Capillary 09/19/2024 2:33 AM EDT [facility] Blood Capillary blood specimen / Unknown 09/19/2024 2:31 AM EDT 09/19/2024 2:33 AM EDT us Tere Snow MD LAB POINT OF CARE TEST DOCKED DEVICE UNSOLICITED RESULTS Final Result [facility] [address] [place] [id number] * (ABNORMAL) Basic Metabolic Panel, Plasma (09/19/2024 12:38 AM EDT) Glucose, Plasma 59(L) 74 - 99 mg/dL 09/19/2024 1:30 AM EDT [facility] BUN, Plasma 4(L) 7 - 21 mg/dL 09/19/2024 1:30 AM EDT [facility] Creatinine, Plasma 0.74 0.60 - 1.10 mg/dL 09/19/2024 1:30 AM EDT [facility] BUN/Creatinine Ratio 5 09/19/2024 1:30 AM EDT [facility] Sodium, Plasma 142 136 - 145 mmol/L 09/19/2024 1:30 AM EDT [facility] Potassium, Plasma 3.7 3.6 - 4.9 mmol/L 09/19/2024 1:30 AM EDT [facility] Chloride, Plasma 108(H) 97 - 107 mmol/L 09/19/2024 1:30 AM EDT [facility] CO2, Plasma 26 22 - 29 mmol/L 09/19/2024 1:30 AM EDT [facility] Anion Gap 8 6 - 16 mmol/L 09/19/2024 1:30 AM EDT [facility] Total Calcium, Plasma 7.9(L) 8.9 - 10.2 mg/dL 09/19/2024 1:30 AM EDT [facility] eGFRcr 96.3 mL/min/1.7 3m*2 09/19/2024 1:30 AM EDT [facility] Comment:Reported eGFRcr in m L/min/1.73m2 is based the CKD-EPI 2020 equation that does not use a race coefficient. Blood Venous blood specimen / Unknown Venipuncture / Unknown 09/19/2024 12:38 AM EDT 09/19/2024 12:45 AM EDT Tere Snow MD LAB BLOOD ORDERABLES Final Result [facility] [address] [place] [address] * (ABNORMAL) Magnesium, Plasma (09/19/2024 12:38 AM EDT) [facility] Magnesium, Plasma 1.8(L) 1.9 - 2.4 mg/dL 09/19/2024 1:30 AM EDT [facility] Blood Venous blood specimen / Unknown Venipuncture / Unknown 09/19/2024 12:38 AM EDT 09/19/2024 12:45 AM EDT Tere Snow MD LAB BLOOD ORDERABLES Final Result Performing Organization Address [facility]/ZIP Co de Phone Number [facility] [address] [place] [address] * (ABNORMAL) CBC W/O Differential (09/19/2024 12:38 AM EDT) [facility] WBC Count 7.40 3.70 - 10.30 10*3/uL LAB HEMATOLOGY METHOD 09/19/2024 1:02 AM EDT [facility] RBC Count 3.59(L) 3.90 - 5.20 10*6/uL LAB HEMATOLOGY METHOD 09/19/2024 1:02 AM EDT [facility] HGB 10.1(L) 11.2 - 15.7 g/dL LAB HEMATOLOGY METHOD 09/19/2024 1:02 AM EDT [facility] HCT 31.8(L) 34.0 - 45.0 % LAB HEMATOLOGY METHOD 09/19/2024 1:02 AM EDT [facility] Platelet Count 403(H) 155 - 369 10*3/uL LAB HEMATOLOGY METHOD 09/19/2024 1:02 AM EDT [facility] MCV 89 79 - 98 fL LAB HEMATOLOGY METHOD 09/19/2024 1:02 AM EDT [facility] MCH 28.1 26.0 - 32.0 pg LAB HEMATOLOGY METHOD 09/19/2024 1:02 AM EDT [facility] MCHC 31.8 30.7 - 35.5 g/dL LAB HEMATOLOGY METHOD 09/19/2024 1:02 AM EDT [facility] RDW 14.7(H) 11.5 - 14.5 % LAB HEMATOLOGY METHOD 09/19/2024 1:02 AM EDT [facility] MPV 9.2 8.8 - 12.5 fL LAB HEMATOLOGY METHOD 09/19/2024 1:02 AM EDT [facility] nRBC 0.0 <=0.0 per 100 WBCs LAB HEMATOLOGY METHOD 09/19/2024 1:02 AM EDT [facility] Blood Venous blood specimen / Unknown Venipuncture / Unknown 09/19/2024 12:38 AM EDT 09/19/2024 12:52 AM EDT us Tere Snow MD LAB BLOOD ORDERABLES Final Result Performing Organization Address [facility]/ZIP Co de Phone Number [facility] [address] [place] [address] * (ABNORMAL) Phosphorus, Plasma (09/19/2024 12:38 AM EDT) Phosphorus, Plasma 5.5(H) 2.5 - 4.5 mg/dL 09/19/2024 1:30 AM EDT [facility] Blood Venous blood specimen / Unknown Venipuncture / Unknown 09/19/2024 12:38 AM EDT 09/19/2024 12:45 AM EDT us Tere Snow MD LAB BLOOD ORDERABLES Final Result [facility] [address] [place] [address] * PERIPHERAL IV (SMARTFORM LINK) (09/18/2024 6:33 PM EDT) Narrative Cristel Encinas RN - 09/18/2024 6:33 PM EDT Cristel Encinas, RN 09/18/2024 6:38 PM Insert peripheral IV Performed by: Cristel Encinas, RN Authorized by: Tere Snow MD [place] Protocol: Verbal consent obtained?: Yes Risks and benefits: Risks, benefits and alternatives were discussed Consent given by: Patient Patient states understanding of procedure being performed: Yes Patient identity confirmed: Verbally with patient, arm band, provided demographic data and hospital-assigned identification number Time out: Immediately prior to the procedure a time out was called Hand hygiene: Hand hygiene performed prior to insertion Inserted using aseptic techniques: Yes Preparation: Skin prepped with alcohol and skin prepped with chg Orientation: Left and lower (mid cephalic vein) Location: Forearm Catheter placed: Peripheral IV Catheter size: 20g/2.00in Line Technique: Ultrasound Guidance Number of attempts: 1 IV flushes: Without difficulty and positive blood return noted and IV luer locked (labs obtained with IV insertion) Patient tolerance: Patient tolerated the procedure well and there were no complications Patient comfort measures used: Position of comfort IV site covered with: Transparent semipermeable dressing Comments: Alcohol swab cap(s) applied. Education provided to patient at bedside regarding PIV care, s/s of infection and phlebitis. Patient verbalized understanding.3CG and/or vein images sent to PACS. Tere Snow MD IV THERAPY ORDERABLES Namrata l Result * Type and screen (09/18/2024 6:11 PM EDT) ABO/Rh B Positive 09/18/2024 7:47 AM EDT [facility] Antibody Screen Negative 09/18/2024 7:47 AM EDT [facility] Specimen Expiration 09/21/2024 23:59 09/18/2024 7:47 AM EDT [facility] Blood Venous blood specimen / Unknown Venipuncture / Unknown 09/18/2024 6:11 PM EDT 09/18/2024 6:32 PM EDT Betty Garcia MD LAB BLOOD BANK TEST ORDERA BLES Final Result BLOOD BANK [address] [place] [address], * (ABNORMAL) Comprehensive metabolic panel (09/18/2024 6:06 PM EDT) Glucose, Plasma 90 74 - 99 mg/dL 09/18/2024 10:34 PM EDT [facility] BUN, Plasma 5(L) 7 - 21 mg/dL 09/18/2024 10:34 PM EDT [facility] Creatinine, Plasma 0.73 0.60 - 1.10 mg/dL 09/18/2024 10:34 PM EDT [facility] BUN/Creatinine Ratio 7 09/18/2024 10:34 PM EDT [facility] Sodium, Plasma 140 136 - 145 mmol/L 09/18/2024 10:34 PM EDT [facility] Potassium, Plasma 3.6 3.6 - 4.9 mmol/L 09/18/2024 10:34 PM EDT [facility] Chloride, Plasma 105 97 - 107 mmol/L 09/18/2024 10:34 PM EDT [facility] CO2, Plasma 25 22 - 29 mmol/L 09/18/2024 10:34 PM EDT [facility] Anion Gap 10 6 - 16 mmol/L 09/18/2024 10:34 PM EDT [facility] Total Calcium, Plasma 8.0(L) 8.9 - 10.2 mg/dL 09/18/2024 10:34 PM EDT [facility] Total Protein 5.0(L) 6.3 - 7.9 g/dL 09/18/2024 10:34 PM EDT [facility] [facility] Albumin, Plasma 2.6(L) 3.5 - 5.2 g/dL 09/18/2024 10:34 PM EDT [facility] AST, Plasma 146(H) 10 - 35 U/L 09/18/2024 10:34 PM EDT [facility] ALT, Plasma 86(H) 10 - 35 U/L 09/18/2024 10:34 PM EDT [facility] Alkaline Phosphatase, Plasma 188(H) 35 - 104 U/L 09/18/2024 10:34 PM EDT [facility] Total Bilirubin, Plasma 0.2 0.2 - 1.1 mg/dL 09/18/2024 10:34 PM EDT [facility] eGFRcr 97.9 mL/min/1.7 3m*2 09/18/2024 10:34 PM EDT [facility] Comment:Reported eGFRcr in m L/min/1.73m2 is based the CKD-EPI 2020 equation that does not use a race coefficient. Blood Venous blood specimen / Unknown Venipuncture / Unknown 09/18/2024 6:06 PM EDT 09/18/2024 7:08 PM EDT Betty Garcia MD LAB BLOOD ORDERABLES Final Result Performing Organization Address City/[facility]/[place] [address] * (ABNORMAL) Phosphorus (09/18/2024 6:05 PM EDT) Phosphorus, Plasma 5.3(H) 2.5 - 4.5 mg/dL 09/18/2024 8:08 PM EDT [facility] Blood Venous blood specimen / Unknown Venipuncture / Unknown 09/18/2024 6:05 PM EDT 09/18/2024 7:08 PM EDT Result [facility] Tere Snow MD LAB BLOOD ORDERABLES Final Result Performing Organization Address [facility]/[place] [address] * (ABNORMAL) Magnesium (09/18/2024 6:05 PM EDT) Magnesium, Plasma 1.6(L) 1.9 - 2.4 mg/dL 09/18/2024 8:08 PM EDT [facility] Blood Venous blood specimen / Unknown Venipuncture / Unknown 09/18/2024 6:05 PM EDT 09/18/2024 7:08 PM EDT Tere Snow MD LAB BLOOD ORDERABLES Final Result Performing Organization Address City/[facility]/ZIP Co de Phone Number [facility] [address] [place] [address] * (ABNORMAL) Basic metabolic panel (09/18/2024 6:05 PM EDT) Glucose, Plasma 89 74 - 99 mg/dL 09/18/2024 8:08 PM EDT [facility] BUN, Plasma 5(L) 7 - 21 mg/dL 09/18/2024 8:08 PM EDT [facility] Creatinine, Plasma 0.72 0.60 - 1.10 mg/dL 09/18/2024 8:08 PM EDT [facility] BUN/Creatinine Ratio 7 09/18/2024 8:08 PM EDT [facility] Sodium, Plasma 139 136 - 145 mmol/L 09/18/2024 8:08 PM EDT [facility] Potassium, Plasma 3.5(L) 3.6 - 4.9 mmol/L 09/18/2024 8:08 PM EDT [facility] Chloride, Plasma 104 97 - 107 mmol/L 09/18/2024 8:08 PM EDT [facility] CO2, Plasma 26 22 - 29 mmol/L 09/18/2024 8:08 PM EDT [facility] Anion Gap 9 6 - 16 mmol/L 09/18/2024 8:08 PM EDT [facility] Total Calcium, Plasma 8.1(L) 8.9 - 10.2 mg/dL 09/18/2024 8:08 PM EDT [facility] eGFRcr 99.5 mL/min/1.7 3m*2 09/18/2024 8:08 PM EDT [facility] Comment:Reported eGFRcr in m L/min/1.73m2 is based the CKD-EPI 2020 equation that does not use a race coefficient. Blood Venous blood specimen / Unknown Venipuncture / Unknown 09/18/2024 6:05 PM EDT 09/18/2024 7:08 PM EDT us Tere Snow MD LAB BLOOD ORDERABLES Final Result [facility] [address] [place] [address] * Lactate, venous (09/18/2024 11:16 AM EDT) Lactate, Venous, Whole Blood 1.0 0.5 - 2.2 mmol/L LAB HEMATOLOGY METHOD 09/18/2024 11:30 AM EDT [facility] Blood Venous blood specimen / Unknown Venipuncture / Unknown 09/18/2024 11:16 AM EDT 09/18/2024 11:27 AM EDT us Tere Snow MD LAB BLOOD ORDERABLES Final Result [facility] [address] [place] [address] * (ABNORMAL) CBC and differential (09/18/2024 11:16 AM EDT) WBC Count 6.49 3.70 - 10.30 10*3/uL LAB HEMATOLOGY METHOD 09/18/2024 12:38 PM EDT [facility] RBC Count 3.47(L) 3.90 - 5.20 10*6/uL LAB HEMATOLOGY METHOD 09/18/2024 12:38 PM EDT [facility] HGB 9.8(L) 11.2 - 15.7 g/dL LAB HEMATOLOGY METHOD 09/18/2024 12:38 PM EDT [facility] HCT 30.8(L) 34.0 - 45.0 % LAB HEMATOLOGY METHOD 09/18/2024 12:38 PM EDT [facility] Platelet Count 451(H) 155 - 369 10*3/uL LAB HEMATOLOGY METHOD 09/18/2024 12:38 PM EDT [facility] MCV 89 79 - 98 fL LAB HEMATOLOGY METHOD 09/18/2024 12:38 PM EDT [facility] MCH 28.2 26.0 - 32.0 pg LAB HEMATOLOGY METHOD 09/18/2024 12:38 PM EDT [facility] MCHC 31.8 30.7 - 35.5 g/dL LAB HEMATOLOGY METHOD 09/18/2024 12:38 PM EDT [facility] RDW 14.9(H) 11.5 - 14.5 % LAB HEMATOLOGY METHOD 09/18/2024 12:38 PM EDT [facility] MPV 9.6 8.8 - 12.5 fL LAB HEMATOLOGY METHOD 09/18/2024 12:38 PM EDT [facility] nRBC 0.0 <=0.0 per 100 WBCs LAB HEMATOLOGY METHOD 09/18/2024 12:38 PM EDT [facility] Differential Type Automated LAB HEMATOLOGY METHOD 09/18/2024 12:38 PM EDT [facility] Neutrophils % 45 % LAB HEMATOLOGY METHOD 09/18/2024 12:38 PM EDT [facility] Lymphocytes % 41 % LAB HEMATOLOGY METHOD 09/18/2024 12:38 PM EDT [facility] Monocytes % 9 % LAB HEMATOLOGY METHOD 09/18/2024 12:38 PM EDT [facility] Eosinophils % 4 % LAB HEMATOLOGY METHOD 09/18/2024 12:38 PM EDT [facility] Basophils % 1 % LAB HEMATOLOGY METHOD 09/18/2024 12:38 PM EDT [facility] Immature Granulocytes % 0 % LAB HEMATOLOGY METHOD 09/18/2024 12:38 PM EDT [facility] Neutrophils Absolute 2.85 1.60 - 6.10 10*3/uL LAB HEMATOLOGY METHOD 09/18/2024 12:38 PM EDT [facility] Lymphocytes Absolute 2.67 1.20 - 3.90 10*3/uL LAB HEMATOLOGY METHOD 09/18/2024 12:38 PM EDT [facility] Monocytes Absolute 0.61 0.30 - 0.90 10*3/uL LAB HEMATOLOGY METHOD 09/18/2024 12:38 PM EDT [facility] Eosinophils Absolute 0.26 0.00 - 0.50 10*3/uL LAB HEMATOLOGY METHOD 09/18/2024 12:38 PM EDT [facility] Basophils Absolute 0.08 0.00 - 0.10 10*3/uL LAB HEMATOLOGY METHOD 09/18/2024 12:38 PM EDT [facility] Immature Granulocytes Absolute 0.02 0.00 - 0.06 10*3/uL LAB HEMATOLOGY METHOD 09/18/2024 12:38 PM EDT [facility] Blood Venous blood specimen / Unknown Venipuncture / Unknown 09/18/2024 11:16 AM EDT 09/18/2024 12:01 PM EDT Narrative [facility] - 09/18/2024 12:38 PM EDT Therapeutic decision making should be based on absolute values, rather than percentages. Betty Garcia MD LAB BLOOD ORDERABLES Final Result Performing Organization Address City/[facility]/ZIP Co de Phone Number [facility] [address] [place] [address] * ECG Adult (09/18/2024 9:16 AM EDT) EKG DIAGNOSIS CLASS Abnormal MUSE ECG Ventricular Rate 78 BPM MUSE ECG Atrial Rate 78 BPM MUSE ECG DE Interval 138 ms MUSE ECG QRSD Interval 96 ms MUSE ECG QT Interval 446 ms MUSE ECG QTC Interval 508 ms MUSE ECG P [place] 79 degrees MUSE ECG R [place] 59 degrees MUSE ECG T Wave [place] 68 degrees MUSE ECG Diagnosis Normal sinus rhythm MUSE ECG Diagnosis Incomplete right bundle branch block MUSE ECG Diagnosis T wave abnormality, consider anterior ischemia MUSE ECG Diagnosis Prolonged QT MUSE ECG Diagnosis Abnormal ECG MUSE ECG Diagnosis MUSE ECG Diagnosis Confirmed by Marlena Zhou ([id number]) on 09/18/2024 2:31:20 PM MUSE ECG 09/18/2024 9:16 AM EDT 09/18/2024 2:31 PM EDT Betty Garcia MD ECG ORDERABLES Final Resu lt Performing Organization Address [facility] Co de Phone Number MUSE ECG * (ABNORMAL) Magnesium (09/18/2024 2:19 AM EDT) Magnesium, Plasma 1.7(L) 1.9 - 2.4 mg/dL 09/18/2024 3:02 AM EDT [facility] Blood Venous blood specimen / Unknown Venipuncture / Unknown 09/18/2024 2:19 AM EDT 09/18/2024 2:36 AM EDT Betty Garcia MD LAB BLOOD ORDERABLES Final Result Performing Organization Address [facility] Co de Phone Number [facility] [address] [place] [address] * (ABNORMAL) Phosphorus (09/18/2024 2:19 AM EDT) Phosphorus, Plasma 5.6(H) 2.5 - 4.5 mg/dL 09/18/2024 3:02 AM EDT [facility] Blood Venous blood specimen / Unknown Venipuncture / Unknown 09/18/2024 2:19 AM EDT 09/18/2024 2:36 AM EDT us Betty Garcia MD LAB BLOOD ORDERABLES Final Result [facility] [address] [place] [address] * (ABNORMAL) CBC (09/18/2024 2:19 AM EDT) WBC Count 15.28(H) 3.70 - 10.30 10*3/uL LAB HEMATOLOGY METHOD 09/18/2024 2:45 AM EDT [facility] RBC Count 3.80(L) 3.90 - 5.20 10*6/uL LAB HEMATOLOGY METHOD 09/18/2024 2:45 AM EDT [facility] HGB 10.6(L) 11.2 - 15.7 g/dL LAB HEMATOLOGY METHOD 09/18/2024 2:45 AM EDT [facility] HCT 33.1(L) 34.0 - 45.0 % LAB HEMATOLOGY METHOD 09/18/2024 2:45 AM EDT [facility] Platelet Count 468(H) 155 - 369 10*3/uL LAB HEMATOLOGY METHOD 09/18/2024 2:45 AM EDT [facility] MCV 87 79 - 98 fL LAB HEMATOLOGY METHOD 09/18/2024 2:45 AM EDT [facility] MCH 27.9 26.0 - 32.0 pg LAB HEMATOLOGY METHOD 09/18/2024 2:45 AM EDT [facility] MCHC 32.0 30.7 - 35.5 g/dL LAB HEMATOLOGY METHOD 09/18/2024 2:45 AM EDT [facility] RDW 14.9(H) 11.5 - 14.5 % LAB HEMATOLOGY METHOD 09/18/2024 2:45 AM EDT [facility] MPV 9.0 8.8 - 12.5 fL LAB HEMATOLOGY METHOD 09/18/2024 2:45 AM EDT [facility] nRBC 0.0 <=0.0 per 100 WBCs LAB HEMATOLOGY METHOD 09/18/2024 2:45 AM EDT [facility] Blood Venous blood specimen / Unknown Venipuncture / Unknown 09/18/2024 2:19 AM EDT 09/18/2024 2:39 AM EDT us Betty Garcia MD LAB BLOOD ORDERABLES Final Result [facility] [address] [place] [address] * (ABNORMAL) Basic Metabolic Panel (09/18/2024 2:19 AM EDT) Glucose, Plasma 89 74 - 99 mg/dL 09/18/2024 3:07 AM EDT [facility] BUN, Plasma 6(L) 7 - 21 mg/dL 09/18/2024 3:07 AM EDT [facility] Creatinine, Plasma 0.81 0.60 - 1.10 mg/dL 09/18/2024 3:07 AM EDT [facility] BUN/Creatinine Ratio 7 09/18/2024 3:07 AM EDT [facility] Sodium, Plasma 138 136 - 145 mmol/L 09/18/2024 3:07 AM EDT [facility] Potassium, Plasma 3.6 3.6 - 4.9 mmol/L 09/18/2024 3:07 AM EDT [facility] Chloride, Plasma 101 97 - 107 mmol/L 09/18/2024 3:07 AM EDT [facility] CO2, Plasma 26 22 - 29 mmol/L 09/18/2024 3:07 AM EDT [facility] Anion Gap 11 6 - 16 mmol/L 09/18/2024 3:07 AM EDT [facility] Total Calcium, Plasma 8.5(L) 8.9 - 10.2 mg/dL 09/18/2024 3:07 AM EDT [facility] eGFRcr 86.4 mL/min/1.7 3m*2 09/18/2024 3:07 AM EDT [facility] Comment:Reported eGFRcr in m L/min/1.73m2 is based the CKD-EPI 2020 equation that does not use a race coefficient. Blood Venous blood specimen / Unknown Venipuncture / Unknown 09/18/2024 2:19 AM EDT 09/18/2024 2:36 AM EDT Betty Garcia MD LAB BLOOD ORDERABLES Final Result [facility] [address] [place] [address] * Clostridium difficile EIA (09/18/2024 2:18 AM EDT) C difficile EIA Interpretation C. difficile infection not likely. May represent colonization . 09/18/2024 7:51 AM EDT [facility] Toxin Result Negative Negative 09/18/2024 7:51 AM EDT [facility] GDH Result Positive Negative 09/18/2024 7:51 AM EDT [facility] Stool Rectum structure / Unknown Non-blood Collection / Unknown 09/18/2024 2:18 AM EDT 09/18/2024 3:01 AM EDT Narrative [facility] - 09/18/2024 7:51 AM EDT This toxin/GDH assay was reflexed from a positive C. difficile PCR result. Betty Garcia MD LAB MICROBIOLOGY - GENERAL ORDERABLES Final Result Performing Organization Address City/[facility]/ZIP Co de Phone Number [facility] [address] [place] [address] * Comprehensive GI Panel by PCR (09/18/2024 2:18 AM EDT) Campylobacter PCR Result Not Detected Not Detected 09/18/2024 7:51 AM EDT [facility] Plesiomonas shigelloides PCR Result Not Detected Not Detected 09/18/2024 7:51 AM EDT [facility] Salmonella PCR Result Not Detected Not Detected 09/18/2024 7:51 AM EDT [facility] Vibrio species PCR Result Not Detected Not Detected 09/18/2024 7:51 AM EDT [facility] Vibrio cholerae PCR Result Not Detected Not Detected 09/18/2024 7:51 AM EDT [facility] Yersinia enterocolitica PCR Result Not Detected Not Detected 09/18/2024 7:51 AM EDT [facility] Enteroaggregative E. coli (EAEC) PCR Result Not Detected Not Detected 09/18/2024 7:51 AM EDT [facility] Enteropathogenic E. coli (EPEC) PCR Result Not Detected Not Detected 09/18/2024 7:51 AM EDT [facility] Enterotoxigenic E. coli (ETEC) lt/st PCR Result Not Detected Not Detected 09/18/2024 7:51 AM EDT [facility] Shiga-like Toxin-Producing E.coli (STEC) stx1/stx2 PCR Resu Not Detected Not Detected 09/18/2024 7:51 AM EDT [facility] E coli 0157 PCR Result Not Detected Not Detected 09/18/2024 7:51 AM EDT [facility] Shigella/Enteroinvas alexsandra E. coli (EIEC) PCR Result Not Detected Not Detected 09/18/2024 7:51 AM EDT [facility] Cryptosporidium PCR Result Not Detected Not Detected 09/18/2024 7:51 AM EDT [facility] Cyclospora cayetanensis PCR Result Not Detected Not Detected 09/18/2024 7:51 AM EDT [facility] Entamoeba histolytica PCR Result Not Detected Not Detected 09/18/2024 7:51 AM EDT [facility] Giardia duodenalis (aka Giardia lamblia) PCR Result Not Detected Not Detected 09/18/2024 7:51 AM EDT [facility] Adenovirus F 40/41 PCR Result Not Detected Not Detected 09/18/2024 7:51 AM EDT [facility] Astrovirus PCR Result Not Detected Not Detected 09/18/2024 7:51 AM EDT [facility] Norovirus GI/GII PCR Result Not Detected Not Detected 09/18/2024 7:51 AM EDT [facility] Rotavirus A PCR Result Not Detected Not Detected 09/18/2024 7:51 AM EDT [facility] Sapovirus PCR Result Not Detected Not Detected 09/18/2024 7:51 AM EDT [facility] Stool Rectum structure / Unknown Non-blood Collection / Unknown 09/18/2024 2:18 AM EDT 09/18/2024 3:01 AM EDT Narrative [facility] - 09/18/2024 7:51 AM EDT This specimen was tested for the [...] difficile by PCR assay if clinically indicated. us Betty Garcia MD LAB MICROBIOLOGY - GENERAL ORDERABLES Final Result [facility] [address] [place] [address] * (ABNORMAL) Clostridiodes (Clostridium) difficile PCR (09/18/2024 2:18 AM EDT) C difficile PCR toxin B gene DNA Result Detected, Reflex GDH/Toxin antigen test pending, see CDEIA for final result.(A) Not Detected 09/18/2024 4:41 AM EDT [facility] Comment:Reflex GDH/Toxin ant igen test pending, see CDEIA for final result. Stool Rectum structure / Unknown Non-blood Collection / Unknown 09/18/2024 2:18 AM EDT 09/18/2024 3:01 AM EDT Narrative [facility] - 09/18/2024 4:41 AM EDT This test is FDA approved for use with liquid stool specimens. This test is used for clinical purposes. It should not be regarded as investigational or for research. This laboratory is certified under the Clinical Laboratory Improvement Amendments of 1988 (CLIA-88) as qualified to perform high complexity clinical laboratory testing. us Betty Garcia MD LAB MICROBIOLOGY - GENERAL ORDERABLES Final Result [facility] [address] [place] [address] * ECG Adult (09/18/2024 1:37 AM EDT) EKG DIAGNOSIS CLASS Abnormal MUSE ECG Ventricular Rate 90 BPM MUSE ECG Atrial Rate 90 BPM MUSE ECG DE Interval 138 ms MUSE ECG QRSD Interval 104 ms MUSE ECG QT Interval 440 ms MUSE ECG QTC Interval 538 ms MUSE ECG P [place] 61 degrees MUSE ECG R [place] 56 degrees MUSE ECG T Wave [place] 71 degrees MUSE ECG Diagnosis Normal sinus rhythm MUSE ECG Diagnosis Low voltage QRS MUSE ECG Diagnosis Prolonged QT MUSE ECG Diagnosis Abnormal ECG MUSE ECG Diagnosis MUSE ECG Diagnosis Confirmed by Marlena Zhou ([id number]) on 09/18/2024 12:14:01 PM MUSE ECG 09/18/2024 1:37 AM EDT 09/18/2024 12:14 PM EDT us Betty Garcia MD ECG ORDERABLES Final Resu lt Performing Organization Address City/[facility]/ZIP Co de Phone Number MUSE ECG documented in this encounter Visit Diagnoses Diagnosis Enteritis- Primary Other and unspecified noninfectious gastroenteritis and colitis Enteritis Other and unspecified noninfectious gastroenteritis and colitis Volume depletion, unspecified Right lower quadrant abdominal pain Leukocytosis Leukocytosis, unspecified Hypotension due to hypovolemia Coronary artery disease with history of myocardial infarction without history of CABG History of infection of intestine due to Clostridium difficile Prolonged Q-T interval on ECG Nonspecific abnormal electrocardiogram (ECG) (EKG) Hypomagnesemia Disorders of magnesium metabolism Hypocalcemia S/P colostomy ([facility]/H[facility]) Colostomy status documented in this encounter Admitting Diagnoses Diagnosis Enteritis Other and unspecified noninfectious gastroenteritis and colitis documented in this encounter Administered Medications Inactive Administered Medications - up to 3 most recent administrations Medication Order MAR Action Action Date Dose Rate Site acetaminophen (Tylenol) tablet 1,000 mg 1,000 mg, Oral, Every 6 hours PRN, Starting on Tue09/18/24 at 0007, Until Tue09/19/24 at 1952, Routine, moderate pain Given 09/19/2024 10:48 AM EDT 1,000 mg Given 09/19/2024 1:37 AM EDT 1,000 mg Given 09/18/2024 12:56 PM EDT 1,000 mg acetaminophen (Tylenol) tablet 1,000 mg 1,000 mg, Oral, Once, 1 dose, On Tue09/18/24 at 0930, Routine Given 09/18/2024 9:04 AM EDT 1,000 mg acetaminophen (Tylenol) tablet 1,000 mg 1,000 mg, Oral, Every 6 hours, First dose (after last modification) on Tue09/19/24 at 2045, Until Discontinued, Routine Given 09/23/2024 3:23 AM EDT 1,000 mg Given 09/22/2024 9:40 PM EDT 1,000 mg Given 09/22/2024 4:28 PM EDT 1,000 mg amoxicillin-clavulanate XR (Augmentin XR) 1000-62.5 MG per 12 hr tablet 2 tablet 2 tablet (2,000 mg), Oral, 2 times daily, 7 doses, First dose (after last modification) on Tue09/21/24 at 1800, Last dose on Tue09/24/24 at 2100, Routine Given 09/23/2024 8:55 AM EDT 2 table ts Given 09/22/2024 9:56 PM EDT 2 tablets Given 09/22/2024 8:09 AM EDT 2 tablets aspirin chewable tablet 81 mg 81 mg, Oral, Daily, First dose on Tue09/20/24 at 0930, Until Discontinued, Routine Given 09/23/2024 8:55 AM EDT 81 mg Given 09/22/2024 8:09 AM EDT 81 mg Given 09/21/2024 8:36 AM EDT 81 mg buPROPion XL (Wellbutrin XL) 24 hr tablet 300 mg 300 mg, Oral, Daily, First dose on Tue09/18/24 at 0900, Until Discontinued Given 09/23/2024 8:55 AM EDT 300 mg Given 09/22/2024 8:09 AM EDT 300 mg Given 09/21/2024 8:37 AM EDT 300 mg citalopram (CeleXA) tablet 40 mg 40 mg, Oral, Daily, First dose on Tue09/18/24 at 0900, Until Discontinued Given 09/23/2024 8:56 AM EDT 40 mg Given 09/22/2024 8:09 AM EDT 40 mg Given 09/21/2024 8:36 AM EDT 40 mg dextrose 10 % (D10W) bolus 125 mL 125 mL, Intravenous, Every 15 min PRN, Starting on Tue09/19/24 at 0144, Until [place] 09/23/24 at 1405, Administer over 15 Minutes, Routine, low blood sugar BG 51-89 mg/dL New Bag 09/21/2024 11:47 PM EDT 125 mL 500 mL/hr New Bag 09/21/2024 4:20 AM EDT 125 mL 500 mL/hr New Bag 09/20/2024 10:15 PM EDT 125 mL 500 mL/hr dextrose 5 % and lactated Ringer's infusion 75 mL/hr, Intravenous, Continuous, Starting on Tue09/19/24 at 0630, Until Emily 09/20/24 at 0901, Routine Rate/Dose Verify 09/20/2024 8:00 AM EDT 75 mL/hr 75 mL/hr Rate/Dose Verify 09/20/2024 6:00 AM EDT 75 mL/hr 75 mL/h r Rate/Dose Verify 09/20/2024 5:00 AM EDT 75 mL/hr 75 mL/h r diphenoxylate-atropine (Lomotil) liquid 5 mL 5 mL, Oral, 4 times daily, First dose on Tue09/22/24 at 1430, Until Discontinued, Routine Given 09/23/2024 8:56 AM EDT 5 mL Given 09/22/2024 9:40 PM EDT 5 mL Given 09/22/2024 2:36 PM EDT 5 mL enoxaparin (Lovenox) syringe 40 mg 40 mg, Subcutaneous, Daily, First dose on Tue09/18/24 at 1400, Until Discontinued, Routine Given 09/22/2024 8:09 AM EDT 40 mg Right Upper Arm (Back) Given 09/21/2024 8:36 AM EDT 40 mg Ri ght Upper Arm (Back) Given 09/20/2024 8:24 AM EDT 40 mg Ri ght Upper Arm (Back) heparin (porcine) injection 5,000 Units 5,000 Units, Subcutaneous, Every 8 hours scheduled, First dose on Tue09/18/24 at 0145, Until Discontinued, Routine Given 09/18/2024 5:59 AM EDT 5,000 Units Left Upper Arm (Back) HYDROmorphone (Dilaudid) injection 0.25 mg 0.25 mg, Intravenous, Once, 1 dose, On Tue09/18/24 at 0045, Routine Given 09/18/2024 12:08 AM EDT 0.25 mg HYDROmorphone (Dilaudid) injection 0.25 mg 0.25 mg, Intravenous, Once, 1 dose, On Tue09/18/24 at 1800, Routine Given 09/18/2024 5:15 PM EDT 0.25 mg HYDROmorphone (Dilaudid) injection 0.25 mg 0.25 mg, Intravenous, Once, 1 dose, On Tue09/19/24 at 0515, Routine Given 09/19/2024 4:25 AM EDT 0.25 mg HYDROmorphone (Dilaudid) injection 0.25 mg 0.25 mg, Intravenous, Once, 1 dose, On Tue09/19/24 at 1615, Routine Given 09/19/2024 3:28 PM EDT 0.25 mg HYDROmorphone (Dilaudid) injection 0.25 mg 0.25 mg, Intravenous, Every 4 hours PRN, Starting on Tue09/19/24 at 1950, Until Tue09/20/24 at 0941, Routine, severe pain, for pain refractory to PO analgesics or if PO unavailable Given 09/19/2024 8:39 PM EDT 0.25 mg HYDROmorphone (Dilaudid) injection 0.25 mg 0.25 mg, Intravenous, Once, 1 dose, On Tue09/20/24 at 1500, Routine Given 09/20/2024 2:03 PM EDT 0.25 mg HYDROmorphone (Dilaudid) injection 0.25 mg 0.25 mg, Intravenous, Once, 1 dose, On 09/22/24 at 0645, Routine Given 09/22/2024 6:04 AM EDT 0.25 mg hydrOXYzine pamoate (Vistaril) capsule 25 mg 25 mg, Oral, Every 6 hours PRN, Starting on Tue09/19/24 at 0043, Until Tue09/23/24 at 1405, Routine, anxiety Given 09/23/2024 3:23 AM EDT 25 mg Given 09/21/2024 10:43 PM EDT 25 mg Given 09/21/2024 4:37 PM EDT 25 mg ketorolac (Toradol) injection 15 mg 15 mg, Intravenous, Every 6 hours, 16 doses, First dose on Tue09/19/24 at 2130, Last dose on Tue09/23/24 at 1600, Routine Given 09/21/2024 9:36 AM EDT 15 mg Given 09/21/2024 4:01 AM EDT 15 mg Given 09/20/2024 10:03 PM EDT 15 mg lactated Ringer's bolus 1,000 mL 1,000 mL, Intravenous, Once, 1 dose, On Tue09/18/24 at 0730, Administer over 2 Hours, Routine New Bag 09/18/2024 6:41 AM EDT 1,000 mL 500 mL/hr lactated Ringer's bolus 1,000 mL 1,000 mL, Intravenous, Once, 1 dose, On Tue09/18/24 at 1215, Administer over 4 Hours, Routine New Bag 09/18/2024 11:42 AM EDT 1,000 mL 250 mL/hr lactated Ringer's bolus 500 mL 500 mL, Intravenous, Once, 1 dose, On Tue09/18/24 at 0430, Administer over 2 Hours, Routine New Bag 09/18/2024 3:46 AM EDT 500 mL 250 mL/hr lactated Ringer's infusion 75 mL/hr, Intravenous, Continuous, Starting on Tue09/18/24 at 0145, Until Tue09/19/24 at 0530, Routine Rate/Dose Verify 09/19/2024 4:47 AM EDT 75 mL/hr 75 mL/hr Rate/Dose Verify 09/19/2024 4:00 AM EDT 75 mL/hr 75 mL/h r New Bag 09/19/2024 3:07 AM EDT 75 mL/hr 75 mL/hr magnesium sulfate in D5W IVPB 1 g 1 g, Intravenous, Once, 1 dose, On Tue09/18/24 at 1230, Routine New Bag 09/18/2024 6:37 PM EDT 1 g magnesium sulfate IVPB 2 g 2 g, Intravenous, Once, 1 dose, On Tue09/19/24 at 0530, Routine New Bag 09/19/2024 5:24 AM EDT 2 g 25 mL/hr magnesium sulfate IVPB 2 g 2 g, Intravenous, Once, 1 dose, On Tue09/22/24 at 0530, Routine New Bag 09/22/2024 5:44 AM EDT 2 g 25 mL/hr melatonin tablet 6 mg 6 mg, Oral, Nightly PRN, Starting on Tue09/19/24 at 1952, Until 09/23/24 at 1405, Routine, sleep Given 09/20/2024 10:54 PM EDT 6 mg Given 09/19/2024 8:21 PM EDT 6 mg methocarbamol (Robaxin) tablet 1,000 mg 1,000 mg, Oral, 4 times daily, First dose (after last modification) on Tue09/22/24 at 0900, Until Discontinued, Routine Given 09/23/2024 8:54 AM EDT 1,000 mg Given 09/22/2024 9:40 PM EDT 1,000 mg Given 09/22/2024 5:54 PM EDT 1,000 mg methocarbamol (Robaxin) tablet 500 mg 500 mg, Oral, 4 times daily, First dose on Tue09/19/24 at 2200, Until Discontinued, Routine Given 09/21/2024 9:33 PM EDT 500 mg Given 09/21/2024 5:41 PM EDT 500 mg Given 09/21/2024 2:01 PM EDT 500 mg metoprolol tartrate (Lopressor) split tablet 12.5 mg 12.5 mg, Oral, 2 times daily, First dose (after last modification) on Tue09/20/24 at 0930, Until Discontinued, Routine Given 09/23/2024 8:55 AM EDT 12.5 mg Given 09/22/2024 9:40 PM EDT 12.5 mg Given 09/22/2024 8:09 AM EDT 12.5 mg metoprolol tartrate (Lopressor) split tablet 37.5 mg 37.5 mg, Oral, 2 times daily, First dose on Tue09/18/24 at 0145, Until Discontinued, Routine Given 09/18/2024 1:57 AM EDT 37.5 mg mupirocin (Bactroban) 2 % ointment 1 Application Each Nostril, 2 times daily, 10 doses, First dose on Tue09/20/24 at 0130, Last dose on Tue09/24/24 at 0900, Routine Given 09/23/2024 8:57 AM EDT 1 Ap plication Given 09/22/2024 9:40 PM EDT 1 Application Given 09/22/2024 8:21 AM EDT 1 Application ondansetron (Zofran) injection 4 mg 4 mg, Intravenous, Once, 1 dose, On Tue09/20/24 at 1815, Routine Given 09/20/2024 5:36 PM EDT 4 mg ondansetron ODT (Zofran-ODT) disintegrating tablet 4 mg 4 mg, Oral, Every 6 hours PRN, Starting on Tue09/19/24 at 1951, Until Tue09/20/24 at 1751, Routine, nausea, vomiting Given 09/20/2024 1:16 PM EDT 4 mg Given 09/20/2024 6:44 AM EDT 4 mg ondansetron ODT (Zofran-ODT) disintegrating tablet 4 mg 4 mg, Oral, 3 times daily with meals, First dose on Tue09/21/24 at 0830, Until Discontinued, Routine Given 09/23/2024 8:54 AM EDT 4 mg Given 09/22/2024 1:50 PM EDT 4 mg Given 09/22/2024 8:08 AM EDT 4 mg ondansetron ODT (Zofran-ODT) disintegrating tablet 4 mg 4 mg, Oral, Every 6 hours PRN, Starting on Tue09/21/24 at 1633, Until Tue09/23/24 at 1405, Routine, nausea, vomiting oxyCODONE (Roxicodone) immediate release tablet 5 mg 5 mg, Oral, Every 4 hours PRN, Starting on Tue09/18/24 at 0053, Until Tue09/23/24 at 1405, Routine, severe pain Given 09/23/2024 8:55 AM EDT 5 mg Given 09/23/2024 3:24 AM EDT 5 mg Given 09/22/2024 9:56 PM EDT 5 mg pantoprazole (Protonix) EC tablet 40 mg 40 mg, Oral, Daily, First dose on Tue09/19/24 at 0900, Until Discontinued, Routine Given 09/19/2024 8:14 AM EDT 40 mg pantoprazole (Protonix) injection 40 mg 40 mg, Intravenous, Daily, First dose on Tue09/18/24 at 0900, Until Discontinued, Routine Given 09/18/2024 9:02 AM EDT 40 mg piperacillin-tazobactam (Zosyn) 4.5 g in sodium chloride 0.9% 100 mL IVPB (vial adapter required) 4.5 g, Intravenous, Every 6 hours, First dose on Tue09/18/24 at 0230, Until Discontinued, Routine New Bag 09/21/2024 8:37 AM EDT 4.5 g 36. 7 mL/hr New Bag 09/21/2024 1:33 AM EDT 4.5 g 36.7 mL/hr New Bag 09/20/2024 8:22 PM EDT 4.5 g 36.7 mL/hr potassium chloride CR (Klor-Con) ER tablet 20 mEq 20 mEq, Oral, Once, 1 dose, On Tue09/22/24 at 0800, Routine Given 09/22/2024 8:09 AM EDT 20 mEq potassium chloride CR (Klor-Con) ER tablet 40 mEq 40 mEq, Oral, Every 4 hours, 2 doses, First dose on Tue09/20/24 at 0415, Last dose on Tue09/20/24 at 0815, Routine Given 09/20/2024 8:24 AM EDT 40 mEq Given 09/20/2024 3:58 AM EDT 40 mEq potassium chloride CR (Klor-Con) ER tablet 40 mEq 40 mEq, Oral, Once, 1 dose, On Tue09/22/24 at 0600, Routine Given 09/22/2024 5:44 AM EDT 40 mEq potassium chloride IVPB 10 mEq 10 mEq, Intravenous, Every 1 hour, 2 doses, First dose on Tue09/18/24 at 1230, Last dose on Tue09/18/24 at 1330, RoutineIndications:Hypokalemia New Bag 09/18/2024 2:38 PM EDT 10 mEq 100 mL/hr primidone (Mysoline) tablet 50 mg 50 mg, Oral, Every 12 hours, First dose on Tue09/18/24 at 0145, Until Discontinued, Routine Given 09/18/2024 1:55 AM EDT 50 mg primidone (Mysoline) tablet 50 mg 50 mg, Oral, 2 times daily, First dose (after last modification) on Tue09/18/24 at 2100, Until Discontinued, Routine Given 09/23/2024 8:57 AM EDT 50 mg Given 09/22/2024 9:40 PM EDT 50 mg Given 09/22/2024 8:09 AM EDT 50 mg prochlorperazine (Compazine) injection 5 mg 5 mg, Intramuscular, Every 6 hours PRN, Starting on Tue09/18/24 at 0215, Until Tue09/21/24 at 0735, Routine, nausea, vomiting Given 09/19/2024 4:28 AM EDT 5 mg Right Deltoid prochlorperazine (Compazine) injection 5 mg 5 mg, Intravenous, Every 6 hours PRN, Starting on Tue09/21/24 at 0735, Until Tue09/23/24 at 1405, Routine, nausea, vomiting, use 2nd rosuvastatin (Crestor) tablet 40 mg 40 mg, Oral, Nightly, First dose on Tue09/20/24 at 2100, Until Discontinued, Routine Given 09/22/2024 9:40 PM EDT 40 mg Given 09/21/2024 8:32 PM EDT 40 mg Given 09/20/2024 8:31 PM EDT 40 mg simethicone (Mylicon) chewable tablet 80 mg 80 mg, Oral, Every 6 hours PRN, Starting on Tue09/19/24 at 0705, Until Tue09/23/24 at 1405, Routine, flatulence Given 09/23/2024 8:55 AM EDT 80 mg Given 09/19/2024 3:13 PM EDT 80 mg Given 09/19/2024 8:14 AM EDT 80 mg sodium chloride 0.9 % flush 10 mL 10 mL, Intravenous, Every 12 hours, First dose on Tue09/18/24 at 0145, Until Discontinued, Routine Given 09/21/2024 5:02 AM EDT 10 mL Given 09/20/2024 5:37 PM EDT 10 mL Given 09/20/2024 1:27 AM EDT 10 mL traZODone (Desyrel) tablet 50 mg 50 mg, Oral, Nightly, First dose on Tue09/18/24 at 0145, Until Discontinued, Routine Given 09/22/2024 9:40 PM EDT 50 mg Given 09/21/2024 8:32 PM EDT 50 mg Given 09/20/2024 8:31 PM EDT 50 mg documented in this encounter Active and Recently Administered Medications Times are shown in EDT. Scheduled Medication Order 09/21/2024 09/22/2024 09/23/2024 acetaminophen (Tylenol) tablet 1,000 mg 1,000 mg, Oral, Every 6 hours, First dose (after last modification) on Tue09/19/24 at 2045, Until Discontinued, Routine 0401 (Given - Provider: Brandie Mason RN)0935 (Given - Provider: Marysol Lopez RN)1637 (Given - Provider: Marysol Lopez RN)2133 (Given - Provider: Brandie Mason RN) 0353 (Given - Provider: Brandie Mason RN)0930 (Given - Provider: Geno Guillory RN)1628 (Given - Provider: Geno Guillory RN)2140 (Given - Provider: Kelvin Yousif, JAMARI) 0323 (Given - Provider: Kelvin Yousif RN)1200 (Canceled Entry - Provider: Automatic Discharge Provider - Comment: Automatically canceled at discontinue of medication order) amoxicillin-clavulanate XR (Augmentin XR) 1000-62.5 MG per 12 hr tablet 2 tablet 2 tablet (2,000 mg), Oral, 2 times daily, 7 doses, First dose (after last modification) on Tue09/21/24 at 1800, Last dose on Tue09/24/24 at 2100, Routine 1741 (Given - Provider: Marysol Lopez RN) 0809 (Given - Provider: Geno Guillory RN)2156 (Given - Provider: Kelvin Yousif, JAMARI) 0855 (Given - Provider: Kehinde Andrade RN) aspirin chewable tablet 81 mg 81 mg, Oral, Daily, First dose on Emily 09/20/24 at 0930, Until Discontinued, Routine 0836 (Given - Provider: Marysol Lopez RN) 0809 (Given - Provider: Geno Guillory RN) 0855 (Given - Provider: Kehinde Andrade RN) buPROPion XL (Wellbutrin XL) 24 hr tablet 300 mg 300 mg, Oral, Daily, First dose on Tue09/18/24 at 0900, Until Discontinued 0837 (Given - Provider: Marysol Lopez RN) 0809 (Given - Provider: Geno Guillory RN) 0855 (Given - Provider: Kehinde Andrade, JAMARI) citalopram (CeleXA) tablet 40 mg 40 mg, Oral, Daily, First dose on Tue09/18/24 at 0900, Until Discontinued 0836 (Given - Provider: Marysol Lopez RN) 0809 (Given - Provider: Geno Guillory RN) 0856 (Given - Provider: Kehinde Andrade RN) diphenoxylate-atropine (Lomotil) liquid 5 mL 5 mL, Oral, 4 times daily, First dose on 09/22/24 at 1430, Until Discontinued, Routine 1436 (Given - Provider: Geno Guillory RN)2140 (Given - Provider: Kelvin Yousif RN) 0856 (Given - Provider: Kehinde Andrade RN)1400 (Canceled Entry - Provider: Automatic Discharge Provider - Comment: Automatically canceled at discontinue of medication order) enoxaparin (Lovenox) syringe 40 mg 40 mg, Subcutaneous, Daily, First dose on Tue09/18/24 at 1400, Until Discontinued, Routine 0836 (Given - Provider: Marysol Lopez RN) 0809 (Given - Provider: Geno Guillory RN) 0856 (Not Given - Provider: Kehinde Andrade RN - Reason: Patient/family refused) HYDROmorphone (Dilaudid) injection 0.25 mg (COMPLETED) 0.25 mg, Intravenous, Once, 1 dose, On 09/22/24 at 0645, Routine 0604 (Given - Provider: Brandie Mason RN) ketorolac (Toradol) injection 15 mg (CANCELED) 15 mg, Intravenous, Every 6 hours, 16 doses, First dose on Tue09/19/24 at 2130, Last dose on Tue09/23/24 at 1600, Routine 0401 (Given - Provider: Brandie Mason RN)0936 (Given - Provider: Marysol Lopez RN) magnesium sulfate IVPB 2 g (COMPLETED) 2 g, Intravenous, Once, 1 dose, On 09/22/24 at 0530, Routine 0544 (New Bag - Provider: Brandie Mason RN) methocarbamol (Robaxin) tablet 1,000 mg 1,000 mg, Oral, 4 times daily, First dose (after last modification) on 09/22/24 at 0900, Until Discontinued, Routine 0809 (Given - Provider: Geno Guillory RN)1350 (Given - Provider: Geno Guillory RN)1754 (Given - Provider: Geno Guillory RN)2140 (Given - Provider: Kelvin Yousif, JAMARI) 0854 (Given - Provider: Kehinde Andrade RN)1400 (Canceled Entry - Provider: Automatic Discharge Provider - Comment: Automatically canceled at discontinue of medication order) methocarbamol (Robaxin) tablet 500 mg (CANCELED) 500 mg, Oral, 4 times daily, First dose on Tue09/19/24 at 2200, Until Discontinued, Routine 0836 (Given - Provider: Marysol Lopez RN)1401 (Given - Provider: Marysol Lopez RN)1741 (Given - Provider: Marysol Lopez RN)2133 (Given - Provider: Brandie Mason RN) metoprolol tartrate (Lopressor) split tablet 12.5 mg 12.5 mg, Oral, 2 times daily, First dose (after last modification) on Emily 09/20/24 at 0930, Until Discontinued, Routine 0836 (Given - Provider: Marysol Lopez RN)203 (Given - Provider: Brandie Mason RN) 0809 (Given - Provider: Geno Guillory RN)2140 (Given - Provider: Kelvin Yousif, JAMARI) 0855 (Given - Provider: Kehidne Andrade RN) mupirocin (Bactroban) 2 % ointment 1 Application Each Nostril, 2 times daily, 10 doses, First dose on Emily 09/20/24 at 0130, Last dose on Tue09/24/24 at 0900, Routine 0836 (Given - Provider: Marysol Lopez RN)2032 (Given - Provider: Brandie Mason, RN) 0821 (Given - Provider: Geno Guillory, JAMARI)2140 (Given - Provider: Kelvin Yousif, JAMARI) 0857 (Given - Provider: Kehinde Andrade, JAMARI) ondansetron ODT (Zofran-ODT) disintegrating tablet 4 mg 4 mg, Oral, 3 times daily with meals, First dose on Tue09/21/24 at 0830, Until Discontinued, Routine 0841 (Given - Provider: Marysol Lopez RN)1216 (Given - Provider: Marysol Lopez RN)1637 (Given - Provider: Marysol Lopez RN) 0808 (Given - Provider: Geno Guillory, JAMARI)1350 (Given - Provider: Geno Guillory RN)1646 (Not Given - Provider: Geno Guillory RN - Reason: Patient/family refused) 0854 (Given - Provider: Kehinde Andrade, JAMARI)1230 (Canceled Entry - Provider: Automatic Discharge Provider - Comment: Automatically canceled at discontinue of medication order) piperacillin-tazobactam (Zosyn) 4.5 g in sodium chloride 0.9% 100 mL IVPB (vial adapter required) (CANCELED) 4.5 g, Intravenous, Every 6 hours, First dose on Tue09/18/24 at 0230, Until Discontinued, Routine 0133 (New Bag - Provider: Brandie Mason, JAMARI)0837 (New Bag - Provider: Marysol Lopez RN) potassium chloride CR (Klor-Con) ER tablet 20 mEq (COMPLETED)(Linked Group 1) 20 mEq, Oral, Once, 1 dose, On 09/22/24 at 0800, Routine 0809 (Given - Provider: Geno Guillory RN) potassium chloride CR (Klor-Con) ER tablet 40 mEq (COMPLETED)(Linked Group 1) 40 mEq, Oral, Once, 1 dose, On 09/22/24 at 0600, Routine 0544 (Given - Provider: Brandie Mason RN) primidone (Mysoline) tablet 50 mg 50 mg, Oral, 2 times daily, First dose (after last modification) on Tue09/18/24 at 2100, Until Discontinued, Routine 0836 (Given - Provider: Marysol Lopez, RN)2031 (Given - Provider: Brandie Mason RN) 08 (Given - Provider: Geno Guillory, JAMARI)2139 (Given - Provider: Kelvin Yousif, JAMARI) 0857 (Given - Provider: Kehinde Andrade, JAMARI) rosuvastatin (Crestor) tablet 40 mg 40 mg, Oral, Nightly, First dose on Tue09/20/24 at 2100, Until Discontinued, Routine 2031 (Given - Provider: Brandie Mason RN) 2139 (Given - Provider: Kelvin Yousif, JAMARI) sodium chloride 0.9 % flush 10 mL (CANCELED)(Linked Group 2) 10 mL, Intravenous, Every 12 hours, First dose on Tue09/18/24 at 0145, Until Discontinued, Routine 501 (Given - Provider: Brandie Mason, JAMARI) traZODone (Desyrel) tablet 50 mg 50 mg, Oral, Nightly, First dose on Tue09/18/24 at 0145, Until Discontinued, Routine 2031 (Given - Provider: Brandie Mason RN) 2139 (Given - Provider: Kelvin Yousif, JAMARI) PRN Medication Order 09/21/2024 09/22/2024 09/23/2024 dextrose 10 % (D10W) bolus 125 mL(Linked Group 3) 125 mL, Intravenous, Every 15 min PRN, Starting on Tue09/19/24 at 0144, Until Tue09/23/24 at 1405, Administer over 15 Minutes, Routine, low blood sugar BG 51-89 mg/dL 0420 (New Bag - Provider: Brandie Mason RN)2347 (New Bag - Provider: Brandie Mason RN) hydrOXYzine pamoate (Vistaril) capsule 25 mg 25 mg, Oral, Every 6 hours PRN, Starting on Tue09/19/24 at 0043, Until Tue09/23/24 at 1405, Routine, anxiety 1637 (Given - Provider: Marysol Lopez RN)2243 (Given - Provider: Brandie Mason RN) 0323 (Given - Provider: Kelvin Yousif, JAMARI)0856 (Not Given - Provider: Kehinde Andrade, JAMARI - Reason: Hold for condition: must add comment - Comment: 1000) melatonin tablet 6 mg 6 mg, Oral, Nightly PRN, Starting on Tue09/19/24 at 1952, Until 09/23/24 at 1405, Routine, sleep ondansetron ODT (Zofran-ODT) disintegrating tablet 4 mg 4 mg, Oral, Every 6 hours PRN, Starting on Tue09/21/24 at 1633, Until 09/23/24 at 1405, Routine, nausea, vomiting 0857 ([facility] to [facility] - Provider: Kehinde Andrade, JAMARI) oxyCODONE (Roxicodone) immediate release tablet 5 mg 5 mg, Oral, Every 4 hours PRN, Starting on Tue09/18/24 at 0053, Until 09/23/24 at 1405, Routine, severe pain 2347 (Given - Provider: Brandie Mason RN) 0540 (Given - Provider: Brandie Mason RN)0930 (Given - Provider: Geno Guillory, JAMARI)2156 (Given - Provider: Kelvin Yousif, JAMARI) 0324 (Given - Provider: Kelvin Yousif, JAMARI)0855 (Given - Provider: Kehinde Andrade, JAMARI) prochlorperazine (Compazine) injection 5 mg(Linked Group 4) 5 mg, Intravenous, Every 6 hours PRN, Starting on Tue09/21/24 at 0735, Until 09/23/24 at 1405, Routine, nausea, vomiting, use 2nd simethicone (Mylicon) chewable tablet 80 mg 80 mg, Oral, Every 6 hours PRN, Starting on Tue09/19/24 at 0705, Until 09/23/24 at 1405, Routine, flatulence 0855 (Given - Provider: Kehinde Andrade, JAMARI) Linked Groups Order Group 1: potassium chloride CR (Klor-Con) ER tablet 40 mEq (COMPLETED)Jump to med 40 mEq, Oral, Once, 1 dose, On 09/22/24 at 0600, Routine Followed by potassium chloride CR (Klor-Con) ER tablet 20 mEq (COMPLETED)Jump to med 20 mEq, Oral, Once, 1 dose, On Tue09/22/24 at 0800, Routine Group 2: Insert peripheral IV (CANCELED) Once, On Tue09/18/24 at 0044, For 1 occurrence And Saline lock IV (CANCELED) Once, On Tue09/18/24 at 0044, For 1 occurrence And sodium chloride 0.9 % flush 10 mL (CANCELED)Jump to med 10 mL, Intravenous, Every 12 hours, First dose on Tue09/18/24 at 0145, Until Discontinued, Routine And sodium chloride 0.9 % flush 10 mL (CANCELED) 10 mL, Intravenous, As needed, Starting on Tue09/18/24 at 0043, Until Tue09/21/24 at 0735, Routine, line care Group 3: glucose (Glutose) 40 % oral gel 15-30 grams of glucose (CANCELED) 15-30 grams of glucose, Sublingual, Every 15 min PRN, Starting on Tue09/19/24 at 0144, Until Tue09/21/24 at 0735, Routine, low blood sugar, per Hypoglycemia Prevention and Treatment protocol Or dextrose 10 % (D10W) bolus 125 mLJump to med 125 mL, Intravenous, Every 15 min PRN, Starting on Tue09/19/24 at 0144, Until Tue09/23/24 at 1405, Administer over 15 Minutes, Routine, low blood sugar BG 51-89 mg/dL Or dextrose 10 % (D10W) bolus 250 mL (CANCELED) 250 mL, Intravenous, Every 15 min PRN, Starting on Tue09/19/24 at 0144, Until Tue09/21/24 at 0735, Administer over 15 Minutes, Routine, PRN low blood sugar BG =/<50 mg/dL Or glucagon (human recombinant) injection 1 mg (CANCELED) 1 mg, Intramuscular, Every 15 min PRN, Starting on Tue09/19/24 at 0144, Until Tue09/21/24 at 0735, Routine, low blood sugar per Hypoglycemia Prevention and Treatment protocol Group 4: prochlorperazine (Compazine) injection 5 mgJump to med 5 mg, Intravenous, Every 6 hours PRN, Starting on Tue09/21/24 at 0735, Until 09/23/24 at 1405, Routine, nausea, vomiting, use 2nd documented in this encounter Additional Health Concerns Infection Onset Date Last Indicated Resolved Time C. difficile Rule-Out 09/18/2024 09/18/20242024 4:41 AM EDT Gastrointestinal Rule-Out 09/18/2024 09/18/2024 5:13 AM EDT C. difficile 09/18/2024 09/18/2024 Assessment Noted Time PHQ-9 Depression Total Score: 1 06/30/19 2:40 PM EDT A fall risk assessment has been complete d for the patient 07/18/2024 11:10 AM EDT A Body Mass Index follow-up plan has been documented for the patient 09/23/2024 9:01 AM EDT documented as of this encounter Care Teams Shank Sorter Relationship Specialty Start Date End Date Champ Quiroz MD [address] [place] [address] [place] [id number] PCP - General Internal Medicine 06/29/24 documented as of this encounter
--- OUTSIDE RECORDS SUMMARY | 2024-10-01 11:15 | XMS_ITS ---
Author Organization [facility] Address [address] [facility] [address] [place] [address] Care Team Providers Care Solid Waste Technician Name Role Phone Michaelle Rivas Primary Care Provider [phone] Champ Quiroz Unavailable [phone] Allergies Allergen (clinical drug ingredient) Drug/Non Drug [...] Problem Status W/U Status Risk Notes Problem Information temporarily unavailable Generalized anxiety disorder (F41.1) Active confirmed Vital Signs Temperature 97.7 degrees Fahrenheit 10/02/19 25 Blood pressure systolic 126 mm Hg 10/02/19 25 Blood pressure diastolic 72 mm Hg 025 Heart Rate 84 /min 10/01/2024 Height 5 ft 1 in in 10/01/2024 Weight 117 lbs 10/01/2024 BMI 22.1 kg/m2 10/01/2024 Encounters Encounter Location Date Provider Diagnosis [facility] [place] [address] [facility] [address] [place] [address] 10/01/2024 Champ Quiroz Generalized anxiety disorder F41.1 ; Atherosclerosis of [place] coronary artery of [place] heart without angina pectoris I25.10 ; Colostomy [...] with the anxiety. We refered her to [facility] and the Medicare office to see if she can get in contact with a therapist and a social science professor. 10/01/2024 Atherosclerosis of [place] coronary artery of [place] heart without angina pectoris (ICD-10 - I25.10) [...] with the anxiety. We refered her to [facility] and the Medicare office to see if she can get in contact with a therapist and a social science professor. Atherosclerosis of [place] co ronary artery of [place] heart without angina pectoris Overall stable post [...] Next Appt Details Follow Up: prn,2 Months, [place] son: Provider Name:Champ Quiroz, 10/31/2024 03:15:00 PM, [address] [facility], [address], [place], [address], Progress Notes * Rere REESE ADOB: [birth year] (53 yo F)Acc No.[id number]:10/01/2024 HOSP F/U Patient: Rere DICKSON Lois Provider: Dayana Quiroz MD :1970 A ge:53 Y S ex:Female Date:10/01/2024 Address:[address] [place] [address] [id number] Pcp:Michaelle Rivas Subjective: * Chief [...] post CABG May [address] [facility], Sepsis, bowel ischemia and colostomy April/[address] [facility], Colitis. * Surgical History: l t rotator cuff 2020, rt hand surgery 01/2023, colon resection 04/30/24. * Hospitalization/Major Diagno stic Procedure: H MH 01/2022, - heart attach 04/30/2024-06/28/24, Septic 07/24/2024, [facility]- abd pain 07/2024, [facility] 09/[facility]24. 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 * Medications: T aking Loratadine 10 MG [...] F41.1 (Primary) 2 . A therosclerosis of [place] coronary artery of [place] heart without angina pectoris - I25.10 3 . C olostomy status - Z93.3 4 . H ospital discharge follow-up - Z09 Plan: * Treatment: 2. A therosclerosis of [place] coronary artery of [place] heart without angina pectoris Notes: Overall stable [...] 7 DAY DISCH, Modifiers: 25 , 1111F [facility] MED/[facility] MED MERGE * Follow Up: p rn,2 Months * * Sign off status: Completed true * Provider: Dayana Quiroz MD Date: 0 10/01/2024 Generated for Printi ng/Faleolag/eTransmitting on: 0 10/17/2024 02:17 PM EDT History and Physical Notes * [...]
--- OUTSIDE RECORDS SUMMARY | 2024-10-17 14:15 | XMS_ITS | Encounter Summary ---
Author Organization [facility] Address [address] [id number] Care Team Providers Care Emanations Analysis Technician Name Role Phone Champ Quiroz MD Primary Care Provider [phone] Encounter Details Date Type Department Care Team (Late st Contact Info) Description 10/04/2024 Telephone [facility] General Surgery [address], [address] [place] [address] Viri Ibrahim [facility] [address] [id number] Social History Tobacco Use Types Packs/Day Years [...] in the past 12 m [facility], were you homeless or living in a care home (including now)? No 09/21/2024 CAGE ASSESSMENT Answer [...] drink first t jaime in the morning (EYE-RESTAURANT LINE SERVER) to steady your nerves or to get [...] Description 11/06/2024 11:00 AM EDT Office Visit [facility] General Surgery [address] [place] [address] Lidia Troncoso MD [address] [place] [address] documented as of this encounter Goals Goal [...] documented as of this encounter Care Teams Emanations Analysis Technician Relationship Specialty Start Date End Date Champ Quiroz MD [address] [place] [address] PCP - General Internal Medicine 06/29/24 documented as of this encounter
--- OUTSIDE RECORDS SUMMARY | 2024-10-17 14:15 | XMS_ITS | Encounter Summary ---
Author Organization [facility] Address [address] [place] [address] Care Team Providers Care Control Specialist Name Role Phone Champ Quiroz MD Primary Care Provider [phone] Encounter Details Date Type Department Care Team (Late st Contact Info) Description 08/22/2024 Results Follow-Up Colorectal Surgery [address] [place] [address] Lidia Troncoso MD [address] [facility] [address] [place] [address] Social History Tobacco Use Types Packs/Day Years [...] In the past 12 months has e [employer] gas, oil, or water [employer] threatened to shut off services in your [...] Description 11/06/2024 11:00 AM EDT Office Visit [facility] General Surgery [address] 1st [place] [address] Lidia Troncoso MD [address] [place] [address] documented as of this [...] documented as of this encounter Care Teams Control Specialist Relationship Specialty Start Date End Date Champ Quiroz MD [address] [place] [address] PCP - General Internal Medicine 06/29/24 documented as of this encounter
--- OUTSIDE RECORDS SUMMARY | 2024-10-17 14:15 | XMS_ITS | Clinical Summary ---
Author Organization [facility] Address [address] [place] [address] Care Team Providers Care Principal Librarian Name Role Phone Provider, No Known Primary Care Provider [phone] Allergies No known active allergies Medications propranolol [...] 2023 INFLUENZA VACCINE 11/14/2024 Insurance Care Teams Principal Librarian Relationship Specialty Start Date End Date Provider, No Known [place], [place] [id number] PCP - General 01/12/16
--- OUTSIDE RECORDS SUMMARY | 2024-10-17 14:15 | XMS_ITS | Encounter Summary ---
Author Organization [facility] Address [address] [place] [address] Care Team Providers Care Pharmacy Data Analyst Name Role Phone Champ Quiroz MD Primary Care Provider [phone] Encounter Details Date Type Department Care Team [...] drink first t jaime in the morning (EYE-SHELLFISH WEIGHER) to steady your nerves or to get [...] Description 11/06/2024 11:00 AM EDT Office Visit [facility] General Surgery [address], [address] [place] [address] Lidia Troncoso MD [address] [place] [address] documented as of this encounter [...] documented as of this encounter Care Teams Pharmacy Data Analyst Relationship Specialty Start Date End Date Champ Quiroz MD [address] [place] [address] PCP - General Internal Medicine 06/29/24 documented as of this encounter
--- OUTSIDE RECORDS SUMMARY | 2024-10-17 14:16 | XMS_ITS | Encounter Summary ---
Author Organization [facility] Address [address] [place] [address] Care Team Providers Care Curb Builder Name Role Phone Champ Quiroz MD Primary Care Provider [phone] Encounter Details Date Type Department Care Team (Late st Contact Info) Description 09/17/2024 Orders Only External Location [address] [place] [address] Provider, External Social History Tobacco Use Types [...] any time in the past 12 m [facility], were you homeless or living in a half-way (including now)? No 09/21/2024 CAGE ASSESSMENT Answer [...] drink first t jaime in the morning (EYE-WAREHOUSE RECORD CLERK) to steady your nerves or to get [...] Description 11/06/2024 11:00 AM EDT Office Visit [facility] General Surgery [address], [address] [place] [address] Lidia Troncoso MD [address] [facility] [address] [place] [address] documented as of this encounter [...] documented as of this encounter Care Teams Curb Builder Relationship Specialty Start Date End Date Champ Quiroz MD [address] [place] [address] PCP - General Internal Medicine 06/29/24 documented as of this encounter
--- OUTSIDE RECORDS SUMMARY | 2024-10-17 14:16 | XMS_ITS | Encounter Summary ---
Author Organization [facility] Address [address] [place] [address] Care Team Providers Care Blister Packaging Machine Operator Name Role Phone Champ Quiroz MD Primary Care Provider [phone] Encounter Details Date Type Department Care Team (Late st Contact Info) Description 09/17/2024 Orders Only External Location [address] [place] [address] Provider, External Social History Tobacco Use Types [...] living in a halfway (including now)? No 09/21/2024 CAGE ASSESSMENT Answer [...] drink first t jaime in the morning (EYE-MOTORCYCLE MECHANIC) to steady your nerves or to get [...] Description 11/06/2024 11:00 AM EDT Office Visit [facility] General Surgery [address], [address] [place] [address] Lidia Troncoso MD [address] [facility] [address] [place] [address] documented as of this encounter [...] documented as of this encounter Care Teams Blister Packaging Machine Operator Relationship Specialty Start Date End Date Champ Quiroz MD [address] [place] [address] PCP - General Internal Medicine 06/29/24 documented as of this encounter
--- OUTSIDE RECORDS SUMMARY | 2024-10-17 14:17 | XMS_ITS | Encounter Summary ---
Author Organization [facility] Address [address] [place] [address] Care Team Providers Care Foundry Tender Name Role Phone Pcp, No Primary Care Provider Champ Butler MD Primary Care Provider + [phone] Encounter Details Date Type Department Care Team (Late st Contact Info) Description 05/14/2024 Lab Requisition [facility] [address] [place] [address] Tom Dyson MD [address] [facility] [address] [place] [address] Encounter for general adult medical examination without [...] time in the past 12 m [facility], were you homeless or living in [...] [address], [address] [place] [address] Lidia Troncoso MD [address] [place] [address] documented as of this encounter [...] at day 1 05/15/2024 11:17 AM EDT [facility] Swab (Nares and Jacey Rectal) 05/14/2024 8:24 AM EDT 05/14/2024 2:12 PM EDT us Tom Dyson MD LAB MICROBIOLOGY - GEN ERAL ORDERABLES Final Result [facility] [address] [place] [address] documented in this encounter Visit Diagnoses Diagnosis [...] documented as of this encounter Care Teams Foundry Tender Relationship Specialty Start Date End Date Pcp, Katherine [address] [place] [address] PCP - General Family Medicine 04/04/24 06/28/24 Champ Quiroz MD [address] [facility] [address] [place] [address] PCP - General Internal Medicine 06/29/24 documented as of this encounter
--- OUTSIDE RECORDS SUMMARY | 2024-10-17 14:17 | XMS_ITS | Encounter Summary ---
Author Organization [facility] Address [address] [place] [address] Care Team Providers Care Program Director Group Work Name Role Phone Pcp, No Primary Care Provider Champ Butler MD Primary Care Provider + [phone] Encounter Details Date Type Department Care Team (Late st Contact Info) Description 05/21/2024 Lab Requisition [facility] [address] [place] [address] Tom Dyson MD [address] [facility] [address] [place] [address] Encounter for general adult medical examination without [...] Description 11/06/2024 11:00 AM EDT Office Visit [facility] General Surgery [address], [address] [place] [address] Lidia Troncoso MD [address] [place] [address] documented as of this encounter [...] at day 1 05/22/2024 8:46 AM EDT [facility] Swab (Nares and Jacey Rectal) 05/21/2024 11:00 AM EDT 05/21/2024 11:55 AM EDT us Tom Dyson MD LAB MICROBIOLOGY - GEN ERAL ORDERABLES Final Result [facility] [address] [place] [address] documented in this encounter Visit Diagnoses Diagnosis [...] documented as of this encounter Care Teams Program Director Group Work Relationship Specialty Start Date End Date Pcp, Katherine [address] [place] [address] PCP - General Family Medicine 04/04/24 06/28/24 Champ Quiroz MD [address] [place] [address] PCP - General Internal Medicine 06/29/24 documented as of this encounter
--- OUTSIDE RECORDS SUMMARY | 2024-10-17 14:21 | XMS_ITS | Encounter Summary ---
Author Organization Healthcare Address [address] [place] [address] Care Team Providers Care Laboratory Animal Care Veterinarian Name Role Phone Champ Quiroz MD Primary Care Provider [phone] Reason for Visit * Reason Onset Date Comments [facility] Same Day Appt/Overbook Request 09/12/2024 Encounter Details Date Type Department Care Team (Late st Contact Info) Description 09/12/[address] [facility] General Surgery [address], [address] [place] [address] Lidia Troncoso MD [address] [place] [address] [facility] Same Day Appt/Overbook Request [...] drink first t jaime in the morning (EYE-CHARGE MANAGER) to steady your nerves or to get [...] Andrade RN documented as of this encounter Miscellaneous Notes * Telephone Encounter - Rina Mason RN - 09/18/2024 3:34 PM EDT Attempted to call patient. No answer. Upon chart review, patient is admitted to currently. * Telephone Encounter - Aleshia Connolly - 09/17/2024 3:07 PM EDT Status Update Call #1 1st call regarding the status of the initial request. Best contact number: [phone] (home) Optimal time of day to reach [...] get in araceli. Thanks! Best contact number: [phone] (home) Optimal time of day to reach [...] 11/06/2024 11:00 AM EDT Office Visit [facility] General Surgery [address] [place] [address] Lidia Troncoso MD [address] [place] [address] documented as of this encounter Goals Goal Patient Goal Type Associated Problems Recent Progress Patient-Stated? Author Patient will verbalize understanding of orthotic wear , care and precautions to protect surgical repair for additional 4 weeks. Occupational Therapy No Ramandeep Jd Van Patient will demonstrate correct performance of HEP [...] as of this encounter Care Teams Laboratory Animal Care Veterinarian Relationship Specialty Start Date End Date Champ Quiroz MD [address] [place] [id number] PCP - General Internal Medicine 06/29/24 documented as of this encounter
--- OUTSIDE RECORDS SUMMARY | 2024-10-17 14:21 | XMS_ITS | Encounter Summary ---
Author Organization [facility] Address [address] [place] [address] Care Team Providers Care Security And Compliance Project Manager Name Role Phone Champ Quiroz MD Primary Care Provider + [phone] Encounter Details Date Type Department Care Team [...] the past 12 months has th e [employer], gas, oil, or water company threatened [...] Description 11/06/2024 11:00 AM EDT Office Visit [facility] General Surgery [address], [address] [place] [address] Lidia Troncoso MD [address] [place] [address] documented as of this encounter Goals Goal [...] documented as of this encounter Care Teams Security And Compliance Project Manager Relationship Specialty Start Date End Date Champ Quiroz MD [address] [place] [address] PCP - General Internal Medicine 06/29/24 documented as of this encounter
--- OUTSIDE RECORDS SUMMARY | 2024-10-17 14:21 | XMS_ITS | Encounter Summary ---
Author Organization Healthcare Address [address] [place] [address] Care Team Providers Care Hand Spring Former Name Role Phone Champ Quiroz MD Primary Care Provider [phone] Encounter Details Date Type Department Care Team (Late st Contact Info) Description 07/21/2024 Orders Only External Location [address] [place] [address] Sundeep Fisher MD [address] [place] [phone] Social History Tobacco Use Types Packs/Day [...] the past 12 months has th e [employer], gas, oil, or water company threatened to [...] [facility] General Surgery [address] [place] [id number] Lidia Troncoso MD [address] [place] [id number] documented as of this encounter Goals Goal [...] documented as of this encounter Care Teams Hand Spring Former Relationship Specialty Start Date End Date Champ Quiroz MD [address] [place] [address] PCP - General Internal Medicine 06/29/24 documented as of this encounter
--- OUTSIDE RECORDS SUMMARY | 2024-10-17 14:21 | XMS_ITS | Clinical Summary ---
Author Organization [facility] Address [address] [place] [address] Care Team Providers Care Traffic Recorder Name Role Phone Champ Quiroz MD Primary Care Provider + [phone] Allergies Active Allergy Reactions Criticality Noted Date [...] 2 times a day. 90 tablet 5 Active Additional Information Patient taking differently: 1 [...] Type Department Care Team Description 10/04/2024 Telephone [facility] [address], [address] [place] [address] Viri Ibrahim 09/17/2024 10:40 PM EDT - 09/23/2024 12:05 PM EDT Hospital Encounter [facility] Inpatient [address] [place] [address] Betty Garcia MD Griffen, Margaret M, MD Enteritis (Primary Dx) Discharge Disposition: Home or Self Care 09/17/2024 Travel 09/17/2024 Orders Only External Location [address] [place] [address] Provider, External 09/17/2024 Orders Only External Location [address] [place] [address] Provider, External 09/12/2024 Telephone [facility] [address], 1st [place] [address] Lidia Troncoso MD HCN Same Day Appt/Overbook Request 08/22/2024 Results Follow-Up Colorectal Surgery [address] [place] [address] Lidia Troncoso MD 08/21/2024 12:18 PM EDT - 08/21/2024 11:59 PM EDT Hospital Encounter [facility] 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); Right lower quadrant abdominal pain 08/21/2024 Telephone [facility] [address] [facility], [address] [place] [address] Lidia Troncoso MD HCN Clinical Concern/Question; HCN Status Update Call #1; HCN Status Update Call #2 08/21/2024 Travel 08/20/2024 Telephone [facility] [address] [facility], [address]st [place] [address] Lidia Troncoso MD HCN - Patient Message (Reschedule due to transportation ) 08/15/2024 Refill [facility] [address], [address] [place] [address] Ana Luisa Simental RN 08/09/2024 Orders Only External Location [address] [place] [address] Millie Ambrose DO 08/07/2024 Orders Only External Location [address] [place] [address] Provider, External 08/07/2024 Telephone [facility] [address], [address] [place] [address] Rina Mason RN 07/31/2024 9:00 AM EDT Office Visit [facility] [address], [address] [place] [address] Lidia Troncoso MD S/P colostomy ([facility]) (Primary Dx); S/P colon resection 07/31/2024 Travel 07/21/2024 Orders Only External Location [address] [place] [address] Sundeep Fisher MD 07/20/2024 Telephone [facility] [address] [place] [address], [address] [place] [address] Ana Luisa Simental RN 07/18/2024 11:00 AM EDT Office Visit [facility] [address], [address] [place] [address] Maite Austin MD CAD, multiple vessel (Primary Dx); Tobacco use; Anxiety and depression; Chronic obstructive pulmonary disease, unspecified COPD type ([facility]); NSTEMI (non-ST elevated myocardial infarction) ([facility]); THOM (obstructive sleep apnea); S/P CABG x 4; Post-op pain 07/18/2024 9:52 AM EDT - 07/18/2024 11:59 PM EDT Hospital Encounter [facility] [address], [address] [place] [address] CAD, multiple vessel Discharge Disposition: [...] living in a fci (including now)? No 09/21/2024 CAGE ASSESSMENT Answer [...] drink first t jaime in the morning (EYE-PRODUCTION OPERATOR) to steady your nerves or to [...] Description 11/06/2024 11:00 AM EDT Office Visit [facility] [address], [address] [place] [address] Lidia Troncoso MD [address] [place] [address] Health Maintenance Due Date Last [...] 11/03/2019 [facility]-Zoster Vaccines (1 of 2) 11/03/2019 [id number] Vaccine (1 - season) 2023 [facility]-Influenza Vaccine [...] [employer] Implanted Type Area Geophysical Prospector Device Identifier Shelf Expiration Date Model / Serial / Lot Pledget Ptfe [place] 4.8mm X 6mm - [id number] Implanted:05/06 by Maite Austin MD at [facility] (Quantity not on file) [id number] / / Procedures Procedure Name Priority Date/Time [...] LAB HEMATOLOGY METHOD 09/23/2024 1:21 AM EDT [facility] RBC Count 3.98 3.90 - 5.20 10*6/uL LAB HEMATOLOGY METHOD 09/23/2024 1:21 AM EDT [facility] HGB 11.4 11.2 - 15.7 g/dL LAB HEMATOLOGY METHOD 09/23/2024 1:21 AM EDT [facility] HCT 34.5 34.0 - 45.0 % LAB HEMATOLOGY METHOD 09/23/2024 1:21 AM EDT [facility] Platelet Count 444(H) 155 - 369 10*3/uL LAB HEMATOLOGY METHOD 09/23/2024 1:21 AM EDT [facility] MCV 87 79 - 98 fL LAB HEMATOLOGY METHOD 09/23/2024 1:21 AM EDT [facility] MCH 28.6 26.0 - 32.0 pg LAB HEMATOLOGY METHOD 09/23/2024 1:21 AM EDT [facility] MCHC 33.0 30.7 - 35.5 g/dL LAB HEMATOLOGY METHOD 09/23/2024 1:21 AM EDT [facility] RDW 15.3(H) 11.5 - 14.5 % LAB HEMATOLOGY METHOD 09/23/2024 1:21 AM EDT [facility] MPV 9.2 8.8 - 12.5 fL LAB HEMATOLOGY METHOD 09/23/2024 1:21 AM EDT [facility] nRBC 0.0 <=0.0 per 100 WBCs LAB HEMATOLOGY METHOD 09/23/2024 1:21 AM EDT [facility] Blood Venous blood specimen / Unknown Venipuncture / Unknown 09/23/2024 1:08 AM EDT 09/23/2024 1:11 AM EDT us Marysol Mancini MD LAB BLOOD ORDERABLES Final Result [facility] [address] [place] [address] * (ABNORMAL) Phosphorus, Plasma (09/23/2024 1:08 AM EDT) Only the most recent of6 resultswithin the time period is included. Phosphorus, Plasma 4.7(H) 2.5 - 4.5 mg/dL 09/23/2024 1:45 AM EDT [facility] Blood Venous blood specimen / Unknown Venipuncture / Unknown 09/23/2024 1:08 AM EDT 09/23/2024 1:12 AM EDT Marysol Mancini MD LAB BLOOD ORDERABLES Final Result Performing Organization Address [facility]/ZIP Co de Phone Number [facility] [address] [place] [address] * Magnesium, Plasma (09/23/2024 1:08 AM EDT) Only the most recent of6 resultswithin the time period is included. Magnesium, Plasma 2.1 1.9 - 2.4 mg/dL 09/23/2024 1:45 AM EDT [facility] Blood Venous blood specimen / Unknown Venipuncture / Unknown 09/23/2024 1:08 AM EDT 09/23/2024 1:12 AM EDT Marysol Mancini MD LAB BLOOD ORDERABLES Final Result Performing Organization Address City/[facility] Co de Phone Number [facility] [address] [place] [address] * (ABNORMAL) Basic Metabolic Panel, Plasma (09/23/2024 1:08 AM EDT) Only the most recent of7 resultswithin the time period is included. Glucose, Plasma 95 74 - 99 mg/dL 09/23/2024 1:45 AM EDT [facility] BUN, Plasma 5(L) 7 - 21 mg/dL 09/23/2024 1:45 AM EDT [facility] Creatinine, Plasma 0.69 0.60 - 1.10 mg/dL 09/23/2024 1:45 AM EDT [facility] BUN/Creatinine Ratio 7 09/23/2024 1:45 AM EDT [facility] Sodium, Plasma 137 136 - 145 mmol/L 09/23/2024 1:45 AM EDT [facility] Potassium, Plasma 4.3 3.6 - 4.9 mmol/L 09/23/2024 1:45 AM EDT [facility] Chloride, Plasma 103 97 - 107 mmol/L 09/23/2024 1:45 AM EDT [facility] CO2, Plasma 25 22 - 29 mmol/L 09/23/2024 1:45 AM EDT [facility] Anion Gap 9 6 - 16 mmol/L 09/23/2024 1:45 AM EDT [facility] Total Calcium, Plasma 8.3(L) 8.9 - 10.2 mg/dL 09/23/2024 1:45 AM EDT [facility] eGFRcr 103.3 mL/min/1.7 3m*2 09/23/2024 1:45 AM EDT [facility] Comment:Reported eGFRcr in m L/min/1.73m2 is based the CKD-EPI 2020 equation that does not use a race coefficient. Blood Venous blood specimen / Unknown Venipuncture / Unknown 09/23/2024 1:08 AM EDT 09/23/2024 1:12 AM EDT us Marysol Mancini MD LAB BLOOD ORDERABLES Final Result [facility] [address] [place] [address] * (ABNORMAL) POCT glucose meter (09/22/2024 9:43 [...] Comment 09/22/2024 9:44 PM EDT [facility] Home Care Manager Rn ID Kelvin Yousif 09/22/2024 9:44 PM EDT [facility] Device ID [id number] 09/22/2024 9:44 PM EDT [facility] Specimen Type POC Capillary 09/22/2024 9:44 PM EDT [facility] Blood Capillary blood specimen / Unknown 09/22/2024 9:43 PM EDT 09/22/2024 9:44 PM EDT us Betty Garcia MD LAB POINT OF CARE TEST DOCKED DEVICE UNSOLICITED RESULTS Final Result Performing Organization Address City/[facility] Co de Phone Number [facility] [address] [place] [address] * Multi Drug Resistance Test (09/20/2024 11:00 AM EDT) Only the most recent of2 resultswithin the time period is included. Pathologist [facility] Culture No growth at day 1 09/21/2024 12:22 PM EDT [facility] Swab (Nares and Jacey Rectal) Non-blood Collection / Unknown 09/20/2024 11:00 AM EDT 09/20/2024 11:14 AM EDT Narrative [facility] - 09/21/2024 12:22 PM EDT This test was developed and its performance characteristics determined by the [facility]. Although the media is FDA-approved, it is not FDA-approved for all specimen types submitted. The FDA has determined that such clearance or approval is not necessary. This test is used for surveillance purposes. It should not be regarded as investigational or for research. The [facility] is certified under the Clinical Laboratory Improvement Amendments of 1988 (CLIA-88) as qualified to perform high complexity clinical laboratory testing. us Tere Snow MD LAB MICROBIOLOGY - GENERAL ORDERABLES Final Result [facility] [address] [place] [address] * Potassium level repeated 2 hours after the total replacement is complete (09/20/2024 9:54 AM EDT) [facility] Potassium, Plasma 4.7 3.6 - 4.9 mmol/L 09/20/2024 10:43 AM EDT [facility] Comment:Hemolyzed, result ma y be falsely increased. Blood Venous blood specimen / Unknown Venipuncture / Unknown 09/20/2024 9:54 AM EDT 09/20/2024 9:59 AM EDT Tere Snow MD LAB BLOOD ORDERABLES Final Result Performing Organization Address [facility] Co de Phone Number [facility] [address] [place] [address] * Simi auris Surveillance by PCR (09/20/2024 1:33 AM EDT) [facility] Simi auris PCR Result Not Detected Not Detected 09/20/2024 12:58 PM EDT [facility] Swab (Axilla and Groin) Non-blood Collection / Unknown 09/20/2024 1:33 AM EDT 09/20/2024 3:41 AM EDT Narrative [facility] - 09/20/2024 12:58 PM EDT This PCR assay was developed and its performance characteristics determined by [facility] as appropriate for clinical purposes. This assay has not been cleared or approved by the FDA, but is performed in a CLIA regulated laboratory that is qualified to perform high-complexity testing. Tere Snow MD LAB MICROBIOLOGY - GENERAL ORDERABLES Final Result Performing Organization Address [facility] Co de Phone Number [facility] [address] [place] [address] * (ABNORMAL) Albumin (09/20/2024 1:33 AM EDT) [facility] Albumin, Plasma 2.6(L) 3.5 - 5.2 g/dL 09/20/2024 7:05 AM EDT [facility] Blood Venous blood specimen / Unknown Venipuncture / Unknown 09/20/2024 1:33 AM EDT 09/20/2024 2:37 AM EDT us Tere Snow MD LAB BLOOD ORDERABLES Final Result Performing Organization Address [facility] Co de Phone Number [facility] [address] [place] [address] * Urine Francis Panel (09/19/2024 8:30 PM EDT) Extra Reflex urine culture not indicated 09/20/2024 5:01 AM EDT [facility] Comment: Previously prelim verified as [...] URINE ORDERABLES Final Result Performing Organization Address [facility] [place] [address] * PERIPHERAL IV (SMARTFORM LINK) (09/18/2024 6:33 PM EDT) Narrative Cristel Encinas RN - 09/18/2024 6:33 PM EDT Cristel Encinas, RN 09/18/2024 6:38 PM Insert peripheral IV Performed by: Cristel Encinas, RN Authorized by: Tere Snow MD [place] Protocol: Verbal consent obtained?: Yes Risks and [...] ORDERA BLES Final Result BLOOD BANK [address] [place] [address], * (ABNORMAL) Comprehensive metabolic panel (09/18/2024 6:06 PM EDT) Glucose, Plasma 90 74 - 99 mg/dL 09/18/2024 10:34 PM EDT [facility] BUN, Plasma 5(L) 7 - 21 mg/dL 09/18/2024 10:34 PM EDT [facility] Creatinine, Plasma 0.73 0.60 - 1.10 mg/dL 09/18/2024 10:34 PM EDT [facility] BUN/Creatinine Ratio 7 09/18/2024 10:34 PM EDT [facility] Sodium, Plasma 140 136 - 145 mmol/L 09/18/2024 10:34 PM EDT [facility] Potassium, Plasma 3.6 3.6 - 4.9 mmol/L 09/18/2024 10:34 PM EDT [facility] Chloride, Plasma 105 97 - 107 mmol/L 09/18/2024 10:34 PM EDT [facility] CO2, Plasma 25 22 - 29 mmol/L 09/18/2024 10:34 PM EDT [facility] Anion Gap 10 6 - 16 mmol/L 09/18/2024 10:34 PM EDT [facility] Total Calcium, Plasma 8.0(L) 8.9 - 10.2 mg/dL 09/18/2024 10:34 PM EDT [facility] Total Protein 5.0(L) 6.3 - 7.9 g/dL 09/18/2024 10:34 PM EDT [facility] Albumin, Plasma 2.6(L) 3.5 - 5.2 g/dL 09/18/2024 10:34 PM EDT [facility] AST, Plasma 146(H) 10 - 35 U/L 09/18/2024 10:34 PM EDT [facility] ALT, Plasma 86(H) 10 - 35 U/L 09/18/2024 10:34 PM EDT [facility] Alkaline Phosphatase, Plasma 188(H) 35 - 104 U/L 09/18/2024 10:34 PM EDT [facility] Total Bilirubin, Plasma 0.2 0.2 - 1.1 mg/dL 09/18/2024 10:34 PM EDT [facility] eGFRcr 97.9 mL/min/1.7 3m*2 09/18/2024 10:34 PM EDT [facility] Comment:Reported eGFRcr in m L/min/1.73m2 is based the CKD-EPI 2020 equation that does not use a race coefficient. Blood Venous blood specimen / Unknown Venipuncture / Unknown 09/18/2024 6:06 PM EDT 09/18/2024 7:08 PM EDT us Betty Garcia MD LAB BLOOD ORDERABLES Final Result Performing Organization Address City/[facility]/ZIP Co de Phone Number [facility] [address] [place] [address] * Lactate, venous (09/18/2024 11:16 AM EDT) Lactate, Venous, Whole Blood 1.0 0.5 - 2.2 mmol/L LAB HEMATOLOGY METHOD 09/18/2024 11:30 AM EDT [facility] Blood Venous blood specimen / Unknown Venipuncture / Unknown 09/18/2024 11:16 AM EDT 09/18/2024 11:27 AM EDT us Tere Snow MD LAB BLOOD ORDERABLES Final Result Performing Organization Address City/[facility]/ZIP Co de Phone Number [facility] [address] [place] [address] * (ABNORMAL) CBC and differential (09/18/2024 11:16 AM EDT) WBC Count 6.49 3.70 - 10.30 10*3/uL LAB HEMATOLOGY METHOD 09/18/2024 12:38 PM EDT [facility] RBC Count 3.47(L) 3.90 - 5.20 10*6/uL LAB HEMATOLOGY METHOD 09/18/2024 12:38 PM EDT [facility] HGB 9.8(L) 11.2 - 15.7 g/dL LAB HEMATOLOGY METHOD 09/18/2024 12:38 PM EDT [facility] HCT 30.8(L) 34.0 - 45.0 % LAB HEMATOLOGY METHOD 09/18/2024 12:38 PM EDT [facility] Platelet Count 451(H) 155 - 369 10*3/uL LAB HEMATOLOGY METHOD 09/18/2024 12:38 PM EDT [facility] MCV 89 79 - 98 fL LAB HEMATOLOGY METHOD 09/18/2024 12:38 PM EDT [facility] MCH 28.2 26.0 - 32.0 pg LAB HEMATOLOGY METHOD 09/18/2024 12:38 PM EDT [facility] MCHC 31.8 30.7 - 35.5 g/dL LAB HEMATOLOGY METHOD 09/18/2024 12:38 PM EDT [facility] RDW 14.9(H) 11.5 - 14.5 % LAB HEMATOLOGY METHOD 09/18/2024 12:38 PM EDT [facility] MPV 9.6 8.8 - 12.5 fL LAB HEMATOLOGY METHOD 09/18/2024 12:38 PM EDT [facility] nRBC 0.0 <=0.0 per 100 WBCs LAB HEMATOLOGY METHOD 09/18/2024 12:38 PM EDT [facility] Differential Type Automated LAB HEMATOLOGY METHOD 09/18/2024 12:38 PM EDT [facility] Neutrophils % 45 % LAB HEMATOLOGY METHOD 09/18/2024 12:38 PM EDT [facility] Lymphocytes % 41 % LAB HEMATOLOGY METHOD 09/18/2024 12:38 PM EDT [facility] Monocytes % 9 % LAB HEMATOLOGY METHOD 09/18/2024 12:38 PM EDT [facility] Eosinophils % 4 % LAB HEMATOLOGY METHOD 09/18/2024 12:38 PM EDT [facility] Basophils % 1 % LAB HEMATOLOGY METHOD 09/18/2024 12:38 PM EDT [facility] Immature Granulocytes % 0 % LAB HEMATOLOGY METHOD 09/18/2024 12:38 PM EDT [facility] Neutrophils Absolute 2.85 1.60 - 6.10 10*3/uL LAB HEMATOLOGY METHOD 09/18/2024 12:38 PM EDT [facility] Lymphocytes Absolute 2.67 1.20 - 3.90 10*3/uL LAB HEMATOLOGY METHOD 09/18/2024 12:38 PM EDT [facility] Monocytes Absolute 0.61 0.30 - 0.90 10*3/uL LAB HEMATOLOGY METHOD 09/18/2024 12:38 PM EDT [facility] Eosinophils Absolute 0.26 0.00 - 0.50 10*3/uL LAB HEMATOLOGY METHOD 09/18/2024 12:38 PM EDT [facility] Basophils Absolute 0.08 0.00 - 0.10 10*3/uL LAB HEMATOLOGY METHOD 09/18/2024 12:38 PM EDT [facility] Immature Granulocytes Absolute 0.02 0.00 - 0.06 10*3/uL LAB HEMATOLOGY METHOD 09/18/2024 12:38 PM EDT [facility] Blood Venous blood specimen / Unknown Venipuncture / Unknown 09/18/2024 11:16 AM EDT 09/18/2024 12:01 PM EDT Narrative [facility] - 09/18/2024 12:38 PM EDT Therapeutic decision making should be based on absolute values, rather than percentages. us Betty Garcia MD LAB BLOOD ORDERABLES Final Result Performing Organization Address City/[facility]/ZIP Co de Phone Number [facility] [address] [place] [address] * ECG Adult (09/18/2024 9:16 AM EDT) Only the most recent of3 resultswithin the time period is included. EKG DIAGNOSIS CLASS Abnormal MUSE ECG Ventricular Rate 78 BPM MUSE ECG Atrial Rate 78 BPM MUSE ECG TX Interval 138 ms MUSE ECG QRSD Interval 96 ms MUSE ECG QT Interval 446 ms MUSE ECG QTC Interval 508 ms MUSE ECG P Alvin 79 degrees MUSE ECG R Alvin 59 degrees MUSE ECG T Wave Alvin 68 degrees MUSE ECG Diagnosis Normal sinus [...] Detected Not Detected 09/18/2024 7:51 AM EDT [facility] Plesiomonas shigelloides PCR Result Not Detected Not Detected 09/18/2024 7:51 AM EDT [facility] Salmonella PCR Result Not Detected Not Detected 09/18/2024 7:51 AM EDT [facility] Vibrio species PCR Result Not Detected Not Detected 09/18/2024 7:51 AM EDT [facility] Vibrio cholerae PCR Result Not Detected Not Detected 09/18/2024 7:51 AM EDT [facility] Yersinia enterocolitica PCR Result Not Detected Not Detected 09/18/2024 7:51 AM EDT [facility] Enteroaggregative E. coli (EAEC) PCR Result Not Detected Not Detected 09/18/2024 7:51 AM EDT [facility] Enteropathogenic E. coli (EPEC) PCR Result Not Detected Not Detected 09/18/2024 7:51 AM EDT [facility] Enterotoxigenic E. coli (ETEC) lt/st PCR Result Not Detected Not Detected 09/18/2024 7:51 AM EDT [facility] Shiga-like Toxin-Producing E.coli (STEC) stx1/stx2 PCR Resu Not Detected Not Detected 09/18/2024 7:51 AM EDT [facility] E coli 0157 PCR Result Not Detected Not Detected 09/18/2024 7:51 AM EDT [facility] Shigella/Enteroinvas alexsandra E. coli (EIEC) PCR Result Not Detected Not Detected 09/18/2024 7:51 AM EDT [facility] Cryptosporidium PCR Result Not Detected Not Detected 09/18/2024 7:51 AM EDT [facility] Cyclospora cayetanensis PCR Result Not Detected Not Detected 09/18/2024 7:51 AM EDT [facility] Entamoeba histolytica PCR Result Not Detected Not Detected 09/18/2024 7:51 AM EDT [facility] Giardia duodenalis (aka Giardia lamblia) PCR Result Not Detected Not Detected 09/18/2024 7:51 AM EDT [facility] Adenovirus F 40/41 PCR Result Not Detected Not Detected 09/18/2024 7:51 AM EDT [facility] Astrovirus PCR Result Not Detected Not Detected 09/18/2024 7:51 AM EDT [facility] Norovirus GI/GII PCR Result Not Detected Not Detected 09/18/2024 7:51 AM EDT [facility] Rotavirus A PCR Result Not Detected Not Detected 09/18/2024 7:51 AM EDT [facility] Sapovirus PCR Result Not Detected Not Detected 09/18/2024 7:51 AM EDT [facility] Stool Rectum structure / Unknown Non-blood Collection / Unknown 09/18/2024 2:18 AM EDT 09/18/2024 3:01 AM EDT Narrative [facility] - 09/18/2024 7:51 AM EDT [...] LAB MICROBIOLOGY - GENERAL ORDERABLES Final Result [facility] [address] [place] [address] * (ABNORMAL) Clostridiodes (Clostridium) difficile PCR (09/18/2024 2:18 AM EDT) C difficile PCR toxin B gene DNA Result Detected, Reflex GDH/Toxin antigen test pending, see CDEIA for final result.(A) Not Detected 09/18/2024 4:41 AM EDT [facility] Comment:Reflex GDH/Toxin ant igen test pending, see CDEIA for final result. Stool Rectum structure / Unknown Non-blood Collection / Unknown 09/18/2024 2:18 AM EDT 09/18/2024 3:01 AM EDT Narrative [facility] - 09/18/2024 4:41 AM EDT [...] GENERAL ORDERABLES Final Result Performing Organization Address City/[facility]/ZIP Co de Phone Number [facility] [address] [place] [address] * Clostridium difficile EIA (09/18/2024 2:18 AM EDT) C difficile EIA Interpretation C. difficile infection not likely. May represent colonization . 09/18/2024 7:51 AM EDT [facility] Toxin Result Negative Negative 09/18/2024 7:51 AM EDT [facility] GDH Result Positive Negative 09/18/2024 7:51 AM EDT [facility] Stool Rectum structure / Unknown Non-blood Collection / Unknown 09/18/2024 2:18 AM EDT 09/18/2024 3:01 AM EDT Narrative [facility] - 09/18/2024 7:51 AM EDT This toxin/GDH assay was reflexed from a positive C. difficile PCR result. us Betty Garcia MD LAB MICROBIOLOGY - GENERAL ORDERABLES Final Result [facility] [address] [place] [address] * CT MSK OUTSIDE IMAGES (09/17/2024 6:09 [...] 10:01 AM Final report signed by Champ dOen MD on 07/18/2024 10:01 AM Maite Austin MD IMG XR PROCEDURES Final Result from Last 3 Months Additional Health Concerns Infection Onset Date Last Indicated C. difficile 09/18/2024 09/18/2024 Insurance [facility] [employer] [facility] MEDICAID Advance Directives * Full Code (Latest [...] 12:06 PM 05/06/2024 8:27 PM Care Teams Traffic Recorder Relationship Specialty Start Date End Date Champ Quiroz MD [id number] [address] [place] [id number] PCP - General Internal Medicine 06/29/24
--- OUTSIDE RECORDS SUMMARY | 2024-10-17 14:21 | XMS_ITS | Encounter Summary ---
Author Organization Healthcare Address [address] [place] [address] Care Team Providers Care Employee Benefits Coordinator Name Role Phone Champ Quiroz MD Primary Care Provider [phone] Reason for Visit * Reason Onset Date Comments HCN - Patient Message 08/20/2024 Reschedule due to transportation Encounter Details Date Type Department Care Team (Late st Contact Info) Description 08/20/2024 Telephone [facility] General Surgery [address], [address] [place] [address] Lidia Troncoso MD [address] [place] [address] HCN - Patient Message (Reschedule [...] living in a correction (including now)? 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 Pt states she only has transportation tomorrow 08/21 or Thursday 08/24 Best contact number and optimal time of day to reach caller: [phone] Note: Please do not reply to this [...] Visit [facility] General Surgery [address] [place] [address] Lidia Troncoso MD [address] [place] [address] documented as of this encounter [...] documented as of this encounter Care Teams Employee Benefits Coordinator Relationship Specialty Start Date End Date Champ Quiroz MD [address] [place] [address] PCP - General Internal Medicine 06/29/24 documented as of this encounter
--- OUTSIDE RECORDS SUMMARY | 2024-10-17 14:21 | XMS_ITS | Encounter Summary ---
Author Organization Healthcare Address [address] [place] [address] Care Team Providers Care Process Coordinator Name Role Phone Champ Quiroz MD Primary Care Provider [phone] Reason for Visit * Reason Onset Date Comments HCN Clinical Concern/Question 08/21/2024 HCN Status Update Call #1 08/21/2024 HCN Status Update Call #2 08/21/2024 Encounter Details Date Type Department Care Team (Late st Contact Info) Description 08/21/2024 Telephone [facility] General Surgery [address] [place] [address] Lidia Troncoso MD [address] [facility] [address] [place] [address] HCN Clinical Concern/Question; HCN Status [...] any time in the past 12 m [facility], were you homeless or living in a detention (including now)? No 09/21/2024 CAGE ASSESSMENT Answer [...] drink first t jaime in the morning (EYE-REFINING STILL OPERATOR) to steady your nerves or to get rid of a hangover? 0 09/17/2024 CAGE Questionnaire Score 0 025 Utilities Answer Date Recorded In the past 12 months has th e Pump!, gas, oil, or water [employer] threatened to shut off services in your [...] of the initial request. Best contact number: [phone] (mobile) Optimal time of day to reach [...] a bm. Please call Best contact number: [phone] (mobile) Optimal time of day to reach [...] CRS has been contacted for consult via [employer]. * Telephone Encounter - Kerry Hutchinson - 08/21/2024 1:40 PM EDT Clinical Concern/Question Reason for Call: Patient says she is in a lot of pain , she says she will like a call back from a nurse she says she is still in [place] , requesting a call [facility] Best contact number: [phone] (mobile) Optimal time of day to reach caller: ANYTIME Additional comments/information from caller: None Note: Please do not reply to this message. Follow-up communication and further actions as a result of this message need to be communicated with the patient directly, if the patient is not active onMyChart. If the patient is active on MyChart, they will receive notification of the communication/outcome via [employer]. documented in this encounter Plan of Treatment Upcoming Encounters Date Type Department Care Team (Late st Contact Info) Description 11/06/2024 11:00 AM EDT Office Visit [facility] General Surgery [address], 1[address] [place] [address] Lidia Troncoso MD [address] [place] [address] documented as of this encounter Goals Goal [...] as of this encounter Care Teams Process Coordinator Relationship Specialty Start Date End Date Champ Quiroz MD [address] [place] [address] PCP - General Internal Medicine 06/29/24 documented as of this encounter
--- NOTE | 2024-10-17 14:30 | CT_ITS ---
FINAL REPORT TECHNIQUE: Routine axial images were obtained from the lung apices to below the diaphragm following IV contrast administration. Individualized dose reduction techniques using automated exposure control or adjustment of the mA and/or kV according to the patient size were employed. CLINICAL HISTORY: cad,cough,cp,abnl ekg COMPARISON: None FINDINGS: CT CHEST WITH CONTRAST: Multiple sternal wires are identified, with mild diastases of the most superior wire, with an 8 mm gap. No hilar or mediastinal adenopathy is noted. No axillary adenopathy is present. No pleural or pericardial effusions are noted. Note is made of an aberrant right subclavian artery. No infiltrate or nodule is seen in the lung augustine. In the upper abdomen, the gallbladder has been surgically resected. IMPRESSION: No acute cardiopulmonary abnormality is identified. Multiple sternal wires are present with mild diastases of the most superior wire measuring 8 mm. Reviewed, Interpreted and Dictated by Abram Lucero MD Transcribed by Nisa Stoll Authenticated and [facility]
[2024-10-17] MEDS: SODIUM CHLORIDE 0.9% 10ML SYR (RAD ONLY) 10 ML IV (14:43)
[2024-10-17] MEDS: IOPAMIDOL-370 (76%);100ML BOTTLE 75 ML IV (14:43)
== END 2024-10-17 23:59 | disposition home or self-care (01) ==
PROVIDERS: PCP Internal Medicine Adolescent Medicine; Visit Provider Nurse Practitioner
DX: I25.10 Atherosclerotic heart disease of native coronary artery without angina pectoris (principal); R05.9 Cough, unspecified; Z95.1 Presence of aortocoronary bypass graft; Z98.890 Other specified postprocedural states
CPT/HCPCS: 71260; 93306; Q9967

== ENCOUNTER 2024-11-05 14:02 | Outpatient (CLI) | payer MEDICAID, SELFPAY ==
--- OUTSIDE RECORDS SUMMARY | 2024-09-17 22:40 | XMS_ITS | Encounter Summary ---
Author Organization Healthcare Address [address] [place] [address] Care Team Providers Care Construction Accountant Name Role Phone Champ Quiroz MD Primary Care Provider [phone] Reason for Visit * Auth/Cert (Routine) Specialty Diagnoses / Procedures Referred By Contac t Referred To Contact Diagnoses Enteritis hx. colonic ischemia, colostomy in place. Swollen/painful stoma Betty Garcia MD [address] [address] Phone: tel: fax: [facility] Inpatient [address] [place] [address] Phone: tel: Referral ID Status Reason Start Date Expiration Date Visits Re quested Visits Authorized [id number] 1 1 Encounter Details Date Type Department Care Team (Latest Contact Info) Description 09/17/2024 10:40 PM EDT - 09/23/2024 12:05 PM EDT Hospital Encounter [facility] Inpatient [address] [place] [address] Betty Garcia MD [address] [address] Tere Snow MD [address] [address] Enteritis (Primary Dx) Discharge Disposition: [...] time in the past 12 m [facility], were you homeless or living in a senior living (including now)? 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 0 09/17/2024 CAGE Questionnaire Score 0 025 Utilities Answer Date Recorded In the past 12 months has th [facility], gas, oil, or water [employer] threatened to shut off services in your [...] Leola Montano, Nurse Coordinator between 7am-3pm at [phone]. If it is after hours, weekends, and holidays please call [phone] and ask for the resident front end java developer for Emergency General Surgery. For appointments please call our General Surgery Clinic at [phone]. Medication requests should be made between the hours of 9:00 AM to 3:00 PM Tuesday thru Tuesday. Please note that based upon recent changes to [place] law related to prescribing opioid pain medications, [...] Note Rere Reese 53 y.o. female CSN: [id number] Admission: 09/17/2024 10:40 PM Primary Problem: Enteritis Anticipated Discharge Date: 09/23/24 Pharmacy Voucher: Meets 300% [employer]. PA bending . Patient reports no resources to cover cost of essential discharge medications this date. Essential medications for a safe discharge vouchered thru [facility]. Voucher #: [id number] Medications/cost: Augmentin XR 100 mg # 8 Additional Comments Ching Day RN * Kehinde Hebert RN - 09/23/2024 9:01 AM EDT Images from the original note were not included. [id number] Colitis: Care Instructions Overview Colitis is the [...] this instruction, always ask your healthcare professional. [employer] disclaims any warranty or liability for your use of this information. ?? [id number] [employer]. * Discharge Summary - Ann-Marie Vera MD - 09/23/2024 8:38 AM EDT Hospitalization Admit Date/Time: 09/17/2024 10:40 PM Admitting Attending: Betty Garcia Discharge Date: 09/23/2024 Discharge Attending Physician: Betty Garcia MD PCP name and Address: Champ Quiroz MD [address] / [place] [address] Referring provider name and address: Sundeep Fisher [address] [place] [address] [place] [address] Chief Concern, Brief History of Present Illness, [...] Your Medications These medications were sent to [facility] [place], [place] - [address], [facility] [address] acetaminophen 500 MG tablet amoxicillin-clavulanate XR 1000-62.5 [...] monitor and replete if needed S/P colostomy ([facility]) Current Assessment & Plan 09/17/2024 Hospital [...] Leola Montano, Nurse Coordinator between 7am-3pm at [phone]. If it is after hours, weekends, and holidays please call [phone] and ask for the resident front end java developer for Emergency General Surgery. For appointments please call our General Surgery Clinic at [phone]. Medication requests should be made between the hours of 9:00 AM to 3:00 PM Tuesday thru Tuesday. Please note that based upon recent changes to [place] law related to prescribing opioid pain medications, our providers will not provide refills on controlled medications after your hospital discharge following a major surgery or trauma. [place], [place] 201 KAR9:260. Outpatient Follow-Up Future Appointments Date Time Provider Department Center 10/30/2024 10:45 AM Lidia Troncoso MD [facility] Test Results Pending At Discharge Pending Labs [...] Outcome Evaluation: pt arrived to unit from [facility], went over plan of care with pt. [...] Flowsheets Taken 09/22/20241125 by Calandrella, Geno R, evp strategy Review/Management: medications reviewed Taken 09/20/2024918 by Marysol [...] 9:45 AM EDT Associated Problem(s): S/P colostomy ([facility]) Continue to monitor ostomy output * [...] Ricardo PA COPD (chronic obstructive pulmonary disease) ([facility]) Overview Deleted 06/14/2024 1:34 PM by Uriah Ricardo PA Tobacco use Overview Addendum 06/14/2024 1:35 PM by Uriah Ricardo PA NSTEMI (non-ST elevated myocardial infarction) ([facility]) Overview Addendum 06/14/2024 1:31 PM by [...] Outcome Evaluation: pt arrived to unit from [facility], went over plan of care with pt. [...] Motility and Elimination Flowsheets (Taken 09/20/2024918 by Maryosl Lopez, RN) Bowel Elimination Management: hygiene measures [...] Note Rere Reese 53 y.o. female CSN: [id number] Admission: 09/17/2024 10:40 PM Primary Problem: Enteritis Quarrying Manager reviewed chart and spoke with patient at bedside to complete this Initial Case Management Assessment. PCP: Champ Quiroz MD Emergency Contact: Extended Emergency Contact Information Primary Emergency Contact: janeth mcknight Mobile Relation: Daughter Preferred language: Ivorian Deliverer Pharmacy needed? No Secondary Emergency Contact: Tony Reese Mobile Relation: Son Insurance: Primary Visit Coverage Payer Plan Sponsor Code Group Number Group Name [employer] Primary Visit Coverage Subscriber Subscriber ID Subscriber Name Subscriber SSN Subscriber Address [id number] RERE REESE [id number] [place] [address] Patient information: Lives with/provides care for aunt at: [address] [place] [address] Patient discharging to parents' home: [address] [place] [address] Patient will have 24HR care available if [...] Outpatient Dialysis Services: Living Will/Advance Directive/Power of Senior Oracle Database Administrator /Guardian: Have you reviewed your Advance Directive [...] 10:32 AM EDT Associated Problem(s): S/P colostomy ([facility]) Continue to monitor ostomy output * [...] place Enteritis treatment as above S/P colostomy ([facility]) Continue to monitor ostomy output Prolonged [...] Ricardo PA COPD (chronic obstructive pulmonary disease) ([facility]) Overview Deleted 06/14/2024 1:34 PM by Uriah Ricardo PA Tobacco use Overview Addendum 06/14/2024 1:35 PM by Uriah Ricardo PA NSTEMI (non-ST elevated myocardial infarction) ([facility]) Overview Addendum 06/14/2024 1:31 PM by [...] plan as documented. Tere Snow MD, FACS dye boarding machine operator Trauma Acute Care Surgery * Care Plan - Brandie Mason RN - 09/21/2024 5:02 AM EDT Problem: Adult Inpatient Plan of Care Goal: Plan of Care Review Outcome: Ongoing, Progressing Flowsheets Taken 09/20/2024918 by Marysol Lopez RN Progress: improving Plan of Care Reviewed With: patient Taken 09/18/2024 0024 by Mendy Matthews RN Outcome Evaluation: pt arrived to unit from [facility], went over plan of care with pt. [...] place Enteritis treatment as above S/P colostomy ([facility]) Present on Admission: Not Applicable Continue [...] Ricardo PA COPD (chronic obstructive pulmonary disease) ([facility]) Overview Deleted 06/14/2024 1:34 PM by Uriah Ricardo PA Tobacco use Overview Addendum 06/14/2024 1:35 PM by Uriah Ricardo PA NSTEMI (non-ST elevated myocardial infarction) ([facility]) Overview Addendum 06/14/2024 1:31 PM by [...] plan as documented. Tere Snow MD, FACS dye boarding machine operator Trauma Acute Care Surgery * Care Plan [...] Outcome Evaluation: pt arrived to unit from [facility], went over plan of care with pt. [...] Outcome Evaluation: pt arrived to unit from [facility], went over plan of care with pt. Plan of Care Reviewed With: patient 09/19/2024 1111 by Lexy Roblero Outcome: Ongoing, Progressing Flowsheets Taken 09/18/20242128 by Sarah Johnson RN Progress: improving Taken 09/18/2024 0024 by Mendy Matthews RN Outcome Evaluation: pt arrived to unit from [facility], went over plan of care with pt. [...] Ricardo PA COPD (chronic obstructive pulmonary disease) ([facility]) Overview Deleted 06/14/2024 1:34 PM by Uriah Ricardo PA Tobacco use Overview Addendum 06/14/2024 1:35 PM by Uriah Ricardo PA NSTEMI (non-ST elevated myocardial infarction) ([facility]) Overview Addendum 06/14/2024 1:31 PM by [...] Incomplete RBBB Tremor Hypertriglyceridemia Hypoalphalipoproteinemia S/P colostomy ([facility]) S/P colon resection BMI 22.0-22.9, adult [...] Edited by: Tere Snow MD at 09/19/2024 0391 Cheryl Aguirre MD Cosigned by Tere Snow MD at 09/19/2024 1:31 PM EDT Associated attestation - Tere Snow MD - 09/19/2024 1:31 PM EDT I saw and evaluated the patient with the resident/fellow. I discussed the case with the resident/fellow and agree with the findings and plan as documented. Tere Snow MD, FACS dye boarding machine operator Trauma Acute Care Surgery * Assessment & [...] Encinas RN Authorized by: Tere Snow MD Stringer Protocol: Verbal consent obtained?: Yes Risks and [...] Note Rere Reese 53 y.o. female CSN: [id number] Admission: 09/17/2024 10:40 PM Primary Problem: Enteritis [...] Edited by: Cheryl Aguirre MD at 09/18/2024 4023 Relevant review of systems was obtained as [...] Ricardo PA COPD (chronic obstructive pulmonary disease) ([facility]) Overview Deleted 06/14/2024 1:34 PM by Uriah Ricardo PA Tobacco use Overview Addendum 06/14/2024 1:35 PM by Uriah Ricardo PA CAD, multiple vessel Overview Addendum 06/14/2024 1:31 PM by Uriah Ricardo PA Patient presented to OSH on 05/01/24 c/o chest pain, LHC reveal mvCAD S/p CABG with Dr. Austin on 05/07 NSTEMI (non-ST elevated myocardial infarction) ([facility]) Overview Addendum 06/14/2024 1:31 PM by [...] Incomplete RBBB Tremor Hypertriglyceridemia Hypoalphalipoproteinemia S/P colostomy ([facility]) S/P colon resection BMI 22.0-22.9, adult [...] We reviewed all pertinent labs, xrays and clinical science consultant reports and determined a plan of [...] edited note comments Tere Snow MD, FACS dye boarding machine operator Trauma Acute Care Surgery * Consults - Marva Connelly RD - 09/18/2024 9:24 AM EDT Adult Nutrition Evaluation Note Rere Reese 53 y.o. female CSN: [id number] Room/Bed 123/123A Nutrition evaluation type: assessment Reason [...] Diet Education: Will monitor- Follows decreased Fiber PR MANAGER. Pertinent Home Medications: Noted Metabolic Cart Study Results: Nutrition Focused Physical Exam: Physical exam performed on (date): Pending. Assessment of Malnutrition: Nutrition Problem: Decreased oral intake related to abdominal pain as evidenced by decreased PO/weight loss PR MANAGER. Status of Nutrition Diagnosis: New Nutrition Interventions [...] Date Anxiety COPD (chronic obstructive pulmonary disease) ([facility]) 05/01/2024 Continue Duo nebs q6 SPO2 goal >88% Coronary artery disease Depression GERD (gastroesophageal reflux disease) 05/01/2024 Continue Protonix 40 mg daily History of transfusion Hyperkalemia 05/06/2024 Now resolved, pt with hypokalemia requiring replacement Hypertension On mechanically assisted ventilation ([facility]) 05/06/2024 Arrived to ICU intubated 05/07 extubated to 4LNC 05/08 resolved Tobacco use 05/01/2024 Folder And Notcher for smoking 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 Complicates all [...] Brush RN patient to be transported to [facility] * Significant Event - Vicky Jessica MD [...] and tobacco abuse. She initially presented to [facility] on 09/17 and was transferred [...] Date Anxiety COPD (chronic obstructive pulmonary disease) ([facility]) 05/01/2024 Continue Duo nebs q6 SPO2 goal >88% Coronary artery disease Depression GERD (gastroesophageal reflux disease) 05/01/2024 Continue Protonix 40 mg daily History of transfusion Hyperkalemia 05/06/2024 Now resolved, pt with hypokalemia requiring replacement Hypertension On mechanically assisted ventilation ([facility]) 05/06/2024 Arrived to ICU intubated 05/07 extubated to 4LNC 05/08 resolved Tobacco use 05/01/2024 Folder And Notcher for smoking 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 Complicates all [...] 92%. Results Review {Vanishing Link Review Results :[id number] I have reviewed the latest lab and [...] Outcome Evaluation: pt arrived to unit from [facility], went over plan of care with pt. [...] Description 11/06/2024 11:00 AM EDT Office Visit [facility] General Surgery [address] [place] [address] Lidia Troncoso MD [address] [place] [address] documented as of this encounter [...] - 99 mg/dL 09/23/2024 1:45 AM EDT [facility] BUN, Plasma 5(L) 7 - 21 mg/dL 09/23/2024 1:45 AM EDT [facility] Creatinine, Plasma 0.69 0.60 - 1.10 mg/dL 09/23/2024 1:45 AM EDT [facility] BUN/Creatinine Ratio 7 09/23/2024 1:45 AM EDT [facility] Sodium, Plasma 137 136 - 145 mmol/L 09/23/2024 1:45 AM EDT [facility] Potassium, Plasma 4.3 3.6 - 4.9 mmol/L 09/23/2024 1:45 AM EDT [facility] Chloride, Plasma 103 97 - 107 mmol/L 09/23/2024 1:45 AM EDT [facility] CO2, Plasma 25 22 - 29 mmol/L 09/23/2024 1:45 AM EDT [facility] Anion Gap 9 6 - 16 mmol/L 09/23/2024 1:45 AM EDT [facility] Total Calcium, Plasma 8.3(L) 8.9 - 10.2 mg/dL 09/23/2024 1:45 AM EDT [facility] eGFRcr 103.3 mL/min/1.7 3m*2 09/23/2024 1:45 AM EDT [facility] Comment:Reported eGFRcr in m L/min/1.73m2 is based the CKD-EPI 2020 equation that does not use a race coefficient. Blood Venous blood specimen / Unknown Venipuncture / Unknown 09/23/2024 1:08 AM EDT 09/23/2024 1:12 AM EDT us Marysol Mancini MD LAB BLOOD ORDERABLES Final Result [facility] [address] [place] [address] * Magnesium, Plasma (09/23/2024 1:08 AM EDT) Pathologist [facility] Magnesium, Plasma 2.1 1.9 - 2.4 mg/dL 09/23/2024 1:45 AM EDT [facility] Blood Venous blood specimen / Unknown Venipuncture / Unknown 09/23/2024 1:08 AM EDT 09/23/2024 1:12 AM EDT us Marysol Mancini MD LAB BLOOD ORDERABLES Final Result Performing Organization Address [facility]/ZIP Co de Phone Number [facility] [address] [place] [address] * (ABNORMAL) CBC W/O Differential (09/23/2024 1:08 AM EDT) [facility] WBC Count 9.97 3.70 - 10.30 10*3/uL LAB HEMATOLOGY METHOD 09/23/2024 1:21 AM EDT [facility] RBC Count 3.98 3.90 - 5.20 10*6/uL LAB HEMATOLOGY METHOD 09/23/2024 1:21 AM EDT [facility] HGB 11.4 11.2 - 15.7 g/dL LAB HEMATOLOGY METHOD 09/23/2024 1:21 AM EDT [facility] HCT 34.5 34.0 - 45.0 % LAB HEMATOLOGY METHOD 09/23/2024 1:21 AM EDT [facility] Platelet Count 444(H) 155 - 369 10*3/uL LAB HEMATOLOGY METHOD 09/23/2024 1:21 AM EDT [facility] MCV 87 79 - 98 fL LAB HEMATOLOGY METHOD 09/23/2024 1:21 AM EDT [facility] MCH 28.6 26.0 - 32.0 pg LAB HEMATOLOGY METHOD 09/23/2024 1:21 AM EDT [facility] MCHC 33.0 30.7 - 35.5 g/dL LAB HEMATOLOGY METHOD 09/23/2024 1:21 AM EDT [facility] RDW 15.3(H) 11.5 - 14.5 % LAB HEMATOLOGY METHOD 09/23/2024 1:21 AM EDT [facility] MPV 9.2 8.8 - 12.5 fL LAB HEMATOLOGY METHOD 09/23/2024 1:21 AM EDT [facility] nRBC 0.0 <=0.0 per 100 WBCs LAB HEMATOLOGY METHOD 09/23/2024 1:21 AM EDT [facility] Blood Venous blood specimen / Unknown Venipuncture / Unknown 09/23/2024 1:08 AM EDT 09/23/2024 1:11 AM EDT us Marysol Mancini MD LAB BLOOD ORDERABLES Final Result Performing Organization Address City/[facility] Co de Phone Number [facility] [address] [place] [address] * (ABNORMAL) Phosphorus, Plasma (09/23/2024 1:08 AM EDT) Phosphorus, Plasma 4.7(H) 2.5 - 4.5 mg/dL 09/23/2024 1:45 AM EDT [facility] Blood Venous blood specimen / Unknown Venipuncture / Unknown 09/23/2024 1:08 AM EDT 09/23/2024 1:12 AM EDT us Marysol Mancini MD LAB BLOOD ORDERABLES Final Result Performing Organization Address City/[facility]/ZIP Co de Phone Number [facility] [address] [place] [address] * (ABNORMAL) POCT glucose meter (09/22/2024 9:43 [...] 09/22/2024 9:44 PM EDT [facility] Forest Management Professor ID Kelvin Yousif 09/22/2024 9:44 PM EDT [facility] Device ID [id number] 09/22/2024 9:44 PM EDT [facility] Specimen Type POC Capillary 09/22/2024 9:44 PM EDT [facility] Blood Capillary blood specimen / Unknown 09/22/2024 9:43 PM EDT 09/22/2024 9:44 PM EDT Betty Garcia MD LAB POINT OF CARE TEST DOCKED DEVICE UNSOLICITED RESULTS Final Result Performing Organization Address [facility] Co de Phone Number [facility] [address] [place] [address] * (ABNORMAL) POCT glucose meter (09/22/2024 1:56 [...] 09/22/2024 1:57 PM EDT [facility] Forest Management Professor ID Geno Guillory 09/22/2024 1:57 PM EDT [facility] Device ID [id number] 09/22/2024 1:57 PM EDT [facility] Specimen Type POC Capillary 09/22/2024 1:57 PM EDT [facility] Blood Capillary blood specimen / Unknown 09/22/2024 1:56 PM EDT 09/22/2024 1:57 PM EDT us Betty Garcia MD LAB POINT OF CARE TEST DOCKED DEVICE UNSOLICITED RESULTS Final Result Performing Organization Address City/[facility]/ZIP Co de Phone Number [facility] [address] [place] [address] * (ABNORMAL) POCT glucose meter (09/22/2024 8:55 AM EDT) [facility] POCT Glucose 108(H) 74 - 99 [...] 09/22/2024 8:56 AM EDT [facility] Forest Management Professor ID Geno Guillory 09/22/2024 8:56 AM EDT HEALTHCARE LAB Device ID [id number] 09/22/2024 8:56 AM EDT [facility]ALTH[facility] Specimen Type POC Capillary 09/22/2024 8:56 AM EDT [facility] Blood Capillary blood specimen / Unknown 09/22/2024 8:55 AM EDT 09/22/2024 8:56 AM EDT Betty Garcia MD LAB POINT OF CARE TEST DOCKED DEVICE UNSOLICITED RESULTS Final Result Performing Organization Address City/State/[facility] Co de Phone Number [facility] [address] [place] [address] * POCT glucose meter (09/22/2024 3:52 AM EDT) [facility] POCT Glucose 91 74 - 99 [...] 09/22/2024 3:54 AM EDT [facility] Forest Management Professor ID Brandie Mason 09/22/2024 3:54 AM EDT HEALTHCARE LAB Device ID [id number] 09/22/2024 3:54 AM EDT [facility] Specimen Type POC Venous 09/22/2024 3:54 AM EDT [facility] Blood Venous blood specimen / Unknown 09/22/2024 3:52 AM EDT 09/22/2024 3:54 AM EDT Tere Snow MD LAB POINT OF CARE TEST DOCKED DEVICE UNSOLICITED RESULTS Final Result [facility] [address] [place] [address] * (ABNORMAL) Basic Metabolic Panel, Plasma (09/22/2024 3:51 AM EDT) [facility] Glucose, Plasma 90 74 - 99 mg/dL 09/22/2024 4:45 AM EDT [facility] BUN, Plasma <3(L) 7 - 21 mg/dL 09/22/2024 4:45 AM EDT [facility] Creatinine, Plasma 0.67 0.60 - 1.10 mg/dL 09/22/2024 4:45 AM EDT [facility] BUN/Creatinine Ratio 09/22/2024 4:45 AM EDT [facility] Comment:Unable to calculate, at least one value is above or below the detection limit. Sodium, Plasma 140 136 - 145 mmol/L 09/22/2024 4:45 AM EDT [facility] Potassium, Plasma 3.6 3.6 - 4.9 mmol/L 09/22/2024 4:45 AM EDT [facility] Chloride, Plasma 106 97 - 107 mmol/L 09/22/2024 4:45 AM EDT [facility] CO2, Plasma 25 22 - 29 mmol/L 09/22/2024 4:45 AM EDT [facility] Anion Gap 9 6 - 16 mmol/L 09/22/2024 4:45 AM EDT [facility] Total Calcium, Plasma 7.9(L) 8.9 - 10.2 mg/dL 09/22/2024 4:45 AM EDT [facility] eGFRcr 104.0 mL/min/1.7 3m*2 09/22/2024 4:45 AM EDT [facility] Comment:Reported eGFRcr in m L/min/1.73m2 is based the CKD-EPI 2020 equation that does not use a race coefficient. Blood Venous blood specimen / Unknown Venipuncture / Unknown 09/22/2024 3:51 AM EDT 09/22/2024 3:58 AM EDT Result [facility] us Tere Snow MD LAB BLOOD ORDERABLES Final Result Performing Organization Address City/[facility] Co de Phone Number [facility] [address] [place] [address] * (ABNORMAL) Phosphorus, Plasma (09/22/2024 3:51 AM EDT) Phosphorus, Plasma 4.7(H) 2.5 - 4.5 mg/dL 09/22/2024 4:38 AM EDT [facility] Blood Venous blood specimen / Unknown Venipuncture / Unknown 09/22/2024 3:51 AM EDT 09/22/2024 3:58 AM EDT us Tere Snow MD LAB BLOOD ORDERABLES Final Result Performing Organization Address [facility] Co de Phone Number [facility] [address] [place] [address] * (ABNORMAL) Magnesium, Plasma (09/22/2024 3:51 AM EDT) [facility] Magnesium, Plasma 1.7(L) 1.9 - 2.4 mg/dL 09/22/2024 4:38 AM EDT [facility] Blood Venous blood specimen / Unknown Venipuncture / Unknown 09/22/2024 3:51 AM EDT 09/22/2024 3:58 AM EDT us Tere Snow MD LAB BLOOD ORDERABLES Final Result Performing Organization Address [facility] Co de Phone Number [facility] [address] [place] [address] * (ABNORMAL) CBC W/O Differential (09/22/2024 3:51 AM EDT) WBC Count 9.01 3.70 - 10.30 10*3/uL LAB HEMATOLOGY METHOD 09/22/2024 4:09 AM EDT [facility] RBC Count 3.71(L) 3.90 - 5.20 10*6/uL LAB HEMATOLOGY METHOD 09/22/2024 4:09 AM EDT [facility] HGB 10.4(L) 11.2 - 15.7 g/dL LAB HEMATOLOGY METHOD 09/22/2024 4:09 AM EDT [facility] HCT 32.6(L) 34.0 - 45.0 % LAB HEMATOLOGY METHOD 09/22/2024 4:09 AM EDT [facility] Platelet Count 447(H) 155 - 369 10*3/uL LAB HEMATOLOGY METHOD 09/22/2024 4:09 AM EDT [facility] MCV 88 79 - 98 fL LAB HEMATOLOGY METHOD 09/22/2024 4:09 AM EDT [facility] MCH 28.0 26.0 - 32.0 pg LAB HEMATOLOGY METHOD 09/22/2024 4:09 AM EDT [facility] MCHC 31.9 30.7 - 35.5 g/dL LAB HEMATOLOGY METHOD 09/22/2024 4:09 AM EDT [facility] RDW 15.1(H) 11.5 - 14.5 % LAB HEMATOLOGY METHOD 09/22/2024 4:09 AM EDT [facility] MPV 9.2 8.8 - 12.5 fL LAB HEMATOLOGY METHOD 09/22/2024 4:09 AM EDT [facility] nRBC 0.0 <=0.0 per 100 WBCs LAB HEMATOLOGY METHOD 09/22/2024 4:09 AM EDT [facility] Blood Venous blood specimen / Unknown Venipuncture / Unknown 09/22/2024 3:51 AM EDT 09/22/2024 4:00 AM EDT us Tere Snow MD LAB BLOOD ORDERABLES Final Result [facility] [address] [place] [address] * (ABNORMAL) POCT glucose meter (09/22/2024 12:17 [...] 09/22/2024 12:19 AM EDT [facility] [employer] Professor ID Mirtha Lewis 12:19 AM EDT [facility] Device ID [id number] 09/22/2024 12:19 AM EDT [facility] Specimen Type POC Capillary 09/22/2024 12:19 AM EDT [facility] Blood Capillary blood specimen / Unknown 09/22/2024 12:17 AM EDT 09/22/2024 12:19 AM EDT Tere Snow MD LAB POINT OF CARE TEST DOCKED DEVICE UNSOLICITED RESULTS Final Result [facility] [address] [place] [address] * POCT glucose meter (09/21/2024 11:43 PM EDT) [facility] POCT Glucose 89 74 - 99 [...] 09/21/2024 11:45 PM EDT [facility] [employer] Professor ID Brandie Mason 09/21/2024 11:45 PM EDT [facility] Device ID [id number] 09/21/2024 11:45 PM EDT [facility] Specimen Type POC Capillary 09/21/2024 11:45 PM EDT [facility] Blood Capillary blood specimen / Unknown 09/21/2024 11:43 PM EDT 09/21/2024 11:45 PM EDT Tere Snow MD LAB POINT OF CARE TEST DOCKED DEVICE UNSOLICITED RESULTS Final Result Performing Organization Address [facility] de Phone Number [facility] [address] [place] [address] * (ABNORMAL) POCT glucose meter (09/21/2024 9:35 PM EDT) Pathologist [facility] POCT Glucose 105(H) 74 - 99 mg/dL [...] Comment 09/21/2024 9:37 PM EDT [facility] [employer] Professor ID Brandie Mason 09/21/2024 9:37 PM EDT [facility] Device ID [id number] 09/21/2024 9:37 PM EDT [facility] Specimen Type POC Capillary 09/21/2024 9:37 PM EDT [facility] Blood Capillary blood specimen / Unknown 09/21/2024 9:35 PM EDT 09/21/2024 9:37 PM EDT Tere Snow MD LAB POINT OF CARE TEST DOCKED DEVICE UNSOLICITED RESULTS Final Result Performing Organization Address City/[facility] de Phone Number [facility] [address] [place] [address] * (ABNORMAL) POCT glucose meter (09/21/2024 5:37 [...] Comment 09/21/2024 5:38 PM EDT [facility] [employer] Professor ID Chip Reinoso 09/21/2024 5:38 PM EDT [facility] Device ID [id number] 09/21/2024 5:38 PM EDT [facility] Specimen Type POC Capillary 09/21/2024 5:38 PM EDT [facility] Blood Capillary blood specimen / Unknown 09/21/2024 5:37 PM EDT 09/21/2024 5:38 PM EDT us Tere Snow MD LAB POINT OF CARE TEST DOCKED DEVICE UNSOLICITED RESULTS Final Result Performing Organization Address [facility] Co de Phone Number [facility] [address] [place] [address] * (ABNORMAL) POCT glucose meter (09/21/2024 12:36 [...] Comment 09/21/2024 12:38 PM EDT [facility] [employer] Professor ID Светлана Cazares 12:38 PM EDT [facility] Device ID [id number] 09/21/2024 12:38 PM EDT [facility] Specimen Type POC Capillary 09/21/2024 12:38 PM EDT [facility] Blood Capillary blood specimen / Unknown 09/21/2024 12:36 PM EDT 09/21/2024 12:38 PM EDT us Tere Snow MD LAB POINT OF CARE TEST DOCKED DEVICE UNSOLICITED RESULTS Final Result Performing Organization Address City/[facility]/ZIP Co de Phone Number [facility] [address] [place] [address] * (ABNORMAL) POCT glucose meter (09/21/2024 9:51 AM EDT) [facility] POCT Glucose 117(H) 74 - 99 [...] Comment 09/21/2024 9:53 AM EDT [facility] [employer] Professor ID Светлана Cazares 9:53 AM EDT [facility] Device ID [id number] 09/21/2024 9:53 AM EDT [facility] Specimen Type POC Capillary 09/21/2024 9:53 AM EDT [facility] Blood Capillary blood specimen / Unknown 09/21/2024 9:51 AM EDT 09/21/2024 9:53 AM EDT Tere Snow MD LAB POINT OF CARE TEST DOCKED DEVICE UNSOLICITED RESULTS Final Result [facility] [address] [place] [address] * (ABNORMAL) POCT glucose meter (09/21/2024 4:53 AM EDT) [facility] POCT Glucose 147(H) 74 - 99 [...] 09/21/2024 4:55 AM EDT [facility] [employer] Professor ID Brandie Mason 09/21/2024 4:55 AM EDT [facility]ALTH[facility]ARE LAB Device ID [id number] 09/21/2024 4:55 AM EDT [facility] Specimen Type POC Capillary 09/21/2024 4:55 AM EDT [facility] Blood Capillary blood specimen / Unknown 09/21/2024 4:53 AM EDT 09/21/2024 4:55 AM EDT us Tere Snow MD LAB POINT OF CARE TEST DOCKED DEVICE UNSOLICITED RESULTS Final Result Performing Organization Address City/[facility] Co de Phone Number [facility] [address] [place] [address] * POCT glucose meter (09/21/2024 4:19 AM [...] Comment 09/21/2024 4:22 AM EDT [facility] [employer] Professor ID Brandie Mason 09/21/2024 4:22 AM EDT [facility] Device ID [id number] 09/21/2024 4:22 AM EDT [facility] Specimen Type POC Capillary 09/21/2024 4:22 AM EDT [facility] Blood Capillary blood specimen / Unknown 09/21/2024 4:19 AM EDT 09/21/2024 4:22 AM EDT us Tere Snow MD LAB POINT OF CARE TEST DOCKED DEVICE UNSOLICITED RESULTS Final Result Performing Organization Address City/[facility] Co de Phone Number [facility] [address] [place] [address] * (ABNORMAL) POCT glucose meter (09/21/2024 1:35 [...] Comment 09/21/2024 1:36 AM EDT [facility] [employer] Professor ID Brandie Mason 09/21/2024 1:36 AM EDT [facility] Device ID [id number] 09/21/2024 1:36 AM EDT [facility] Specimen Type POC Capillary 09/21/2024 1:36 AM EDT [facility] Blood Capillary blood specimen / Unknown 09/21/2024 1:35 AM EDT 09/21/2024 1:36 AM EDT us Tere Snow MD LAB POINT OF CARE TEST DOCKED DEVICE UNSOLICITED RESULTS Final Result Performing Organization Address City/State/[facility] Co de Phone Number [facility] [address] [place] [address] * (ABNORMAL) POCT glucose meter (09/20/2024 10:51 [...] 09/20/2024 10:53 PM EDT [facility] [employer] Professor ID Brandie Mason 09/20/2024 10:53 PM EDT [facility] Device ID [id number] 09/20/2024 10:53 PM EDT [facility] Specimen Type POC Capillary 09/20/2024 10:53 PM EDT [facility] Blood Capillary blood specimen / Unknown 09/20/2024 10:51 PM EDT 09/20/2024 10:53 PM EDT us Tere Snow MD LAB POINT OF CARE TEST DOCKED DEVICE UNSOLICITED RESULTS Final Result Performing Organization Address City/[facility]/ZIP Co de Phone Number [facility] [address] [place] [address] * POCT glucose meter (09/20/2024 10:13 PM [...] Comment 09/20/2024 10:16 PM EDT [facility] [employer] Professor ID Brandie Mason 09/20/2024 10:16 PM EDT [facility] Device ID [id number] 09/20/2024 10:16 PM EDT [facility] Specimen Type POC Capillary 09/20/2024 10:16 PM EDT [facility] Blood Capillary blood specimen / Unknown 09/20/2024 10:13 PM EDT 09/20/2024 10:16 PM EDT Tere Snow MD LAB POINT OF CARE TEST DOCKED DEVICE UNSOLICITED RESULTS Final Result Performing Organization Address [facility] Co de Phone Number [facility] [address] [place] [address] * POCT glucose meter (09/20/2024 3:01 PM EDT) Pathologist [facility] POCT Glucose 97 74 - 99 [...] 09/20/2024 3:03 PM EDT [facility] [employer] Professor ID Vee Patel 09/20/2024 3:03 PM EDT [facility] Device ID [id number] 09/20/2024 3:03 PM EDT [facility] Specimen Type POC Capillary 09/20/2024 3:03 PM EDT [facility] Blood Capillary blood specimen / Unknown 09/20/2024 3:01 PM EDT 09/20/2024 3:03 PM EDT Tere Snow MD LAB POINT OF CARE TEST DOCKED DEVICE UNSOLICITED RESULTS Final Result Performing Organization Address [facility] Co de Phone Number [facility] [address] [place] [address] * Multi Drug Resistance Test (09/20/2024 11:00 AM EDT) Culture No growth at day 1 09/21/2024 12:22 PM EDT [facility] Swab (Nares and Jacey Rectal) Non-blood Collection / Unknown 09/20/2024 11:00 AM EDT 09/20/2024 11:14 AM EDT Narrative [facility] - 09/21/2024 12:22 PM EDT This test was developed and its performance characteristics determined by the [facility]. Although the media is FDA-approved, it is not FDA-approved for all specimen types submitted. The FDA has determined that such clearance or approval is not necessary. This test is used for surveillance purposes. It should not be regarded as investigational or for research. The [facility] is certified under the Clinical Laboratory Improvement Amendments of 1988 (CLIA-88) as qualified to perform high complexity clinical laboratory testing. us Tere Snow MD LAB MICROBIOLOGY - GENERAL ORDERABLES Final Result Performing Organization Address City/[facility]/ZIP Co de Phone Number [facility] [address] [place] [address] * Multi Drug Resistance Test (09/20/2024 11:00 AM EDT) Culture No growth at day 1 09/21/2024 12:22 PM EDT [facility] Swab (Nares and Jacey Rectal) Non-blood Collection / Unknown 09/20/2024 11:00 AM EDT 09/20/2024 11:17 AM EDT Narrative [facility] - 09/21/2024 12:22 PM EDT This test was developed and its performance characteristics determined by the [facility]. Although the media is FDA-approved, it is not FDA-approved for all specimen types submitted. The FDA has determined that such clearance or approval is not necessary. This test is used for surveillance purposes. It should not be regarded as investigational or for research. The [facility] is certified under the Clinical Laboratory Improvement Amendments of 1988 (CLIA-88) as qualified to perform high complexity clinical laboratory testing. us Tere Snow MD LAB MICROBIOLOGY - GENERAL ORDERABLES Final Result [facility] [address] [place] [address] * (ABNORMAL) POCT glucose meter (09/20/2024 10:59 [...] for testing. Comment 09/20/2024 11:00 AM EDT [facility] [employer] Professor ID Marysol Lopez 11:00 AM EDT [facility] Device ID [id number] 09/20/2024 11:00 AM EDT [facility] Specimen Type POC Capillary 09/20/2024 11:00 AM EDT [facility] Blood Capillary blood specimen / Unknown 09/20/2024 10:59 AM EDT 09/20/2024 11:00 AM EDT us Tere Snow MD LAB POINT OF CARE TEST DOCKED DEVICE UNSOLICITED RESULTS Final Result [facility] [address] [place] [address] * (ABNORMAL) POCT glucose meter (09/20/2024 10:32 [...] Comment 09/20/2024 10:33 AM EDT [facility] [employer] Management Professor ID Marysol Lopez 10:33 AM EDT [facility] LAB Device ID [id number] 09/20/2024 10:33 AM EDT [facility] Specimen Type POC Capillary 09/20/2024 10:33 AM EDT [facility] Blood Capillary blood specimen / Unknown 09/20/2024 10:32 AM EDT 09/20/2024 10:33 AM EDT us Tere Snow MD LAB POINT OF CARE TEST DOCKED DEVICE UNSOLICITED RESULTS Final Result Performing Organization Address City/[facility]/ZIP Co de Phone Number [facility] [address] [place] [address] * Potassium level repeated 2 hours after the total replacement is complete (09/20/2024 9:54 AM EDT) Potassium, Plasma 4.7 3.6 - 4.9 mmol/L 09/20/2024 10:43 AM EDT [facility] Comment:Hemolyzed, result ma y be falsely increased. Blood Venous blood specimen / Unknown Venipuncture / Unknown 09/20/2024 9:54 AM EDT 09/20/2024 9:59 AM EDT us Tere Snow MD LAB BLOOD ORDERABLES Final Result [facility] [address] [place] [address] * (ABNORMAL) POCT glucose meter (09/20/2024 9:52 AM EDT) [facility] POCT Glucose 67(L) 74 - 99 [...] Comment 09/20/2024 9:56 AM EDT [facility] Forest Management Professor ID Marysol Lopez 9:56 AM EDT [facility] Device ID [id number] 09/20/2024 9:56 AM EDT [facility] Specimen Type POC Venous 09/20/2024 9:56 AM EDT [facility] Blood Venous blood specimen / Unknown 09/20/2024 9:52 AM EDT 09/20/2024 9:56 AM EDT Tere Snow MD LAB POINT OF CARE TEST DOCKED DEVICE UNSOLICITED RESULTS Final Result Performing Organization Address City/[facility] Co de Phone Number [facility] [address] [place] [address] * POCT glucose meter (09/20/2024 7:57 AM EDT) [facility] POCT Glucose 96 74 - 99 [...] 09/20/2024 7:59 AM EDT [facility] [employer] Professor ID Vee Patel 09/20/2024 7:59 AM EDT [facility] Device ID [id number] 09/20/2024 7:59 AM EDT [facility] Specimen Type POC Capillary 09/20/2024 7:59 AM EDT [facility] Blood Capillary blood specimen / Unknown 09/20/2024 7:57 AM EDT 09/20/2024 7:59 AM EDT Tere Snow MD LAB POINT OF CARE TEST DOCKED DEVICE UNSOLICITED RESULTS Final Result Performing Organization Address City/[facility] Co de Phone Number [facility] [address] [place] [address] * (ABNORMAL) POCT glucose meter (09/20/2024 6:56 AM EDT) [facility] POCT Glucose 132(H) 74 - 99 [...] Comment 09/20/2024 6:58 AM EDT [facility] [employer] Professor ID Kelvin Yousif 09/20/2024 6:58 AM EDT HEALTHCARE LAB Device ID [id number] 09/20/2024 6:58 AM EDT [facility] Specimen Type POC Capillary 09/20/2024 6:58 AM EDT [facility] Blood Capillary blood specimen / Unknown 09/20/2024 6:56 AM EDT 09/20/2024 6:58 AM EDT us Tere Snow MD LAB POINT OF CARE TEST DOCKED DEVICE UNSOLICITED RESULTS Final Result Performing Organization Address City/[facility] Co de Phone Number [facility] [address] [place] [address] * POCT glucose meter (09/20/2024 6:28 AM EDT) Pathologist [facility] POCT Glucose 81 74 - 99 mg/dL [...] Comment 09/20/2024 6:30 AM EDT [facility] Forest Management Professor ID Kelvin Yousif 09/20/2024 6:30 AM EDT [facility]ALTH[facility]ARE LAB Device ID [id number] 09/20/2024 6:30 AM EDT [facility] Specimen Type POC Capillary 09/20/2024 6:30 AM EDT [facility] Blood Capillary blood specimen / Unknown 09/20/2024 6:28 AM EDT 09/20/2024 6:30 AM EDT us Tere Snow MD LAB POINT OF CARE TEST DOCKED DEVICE UNSOLICITED RESULTS Final Result Performing Organization Address City/[facility]/ZIP Co de Phone Number [facility] [address] [place] [address] * (ABNORMAL) Albumin (09/20/2024 1:33 AM EDT) [facility] Albumin, Plasma 2.6(L) 3.5 - 5.2 g/dL 09/20/2024 7:05 AM EDT [facility] Blood Venous blood specimen / Unknown Venipuncture / Unknown 09/20/2024 1:33 AM EDT 09/20/2024 2:37 AM EDT us Tere Snow MD LAB BLOOD ORDERABLES Final Result [facility] [address] [place] [address] * Simi auris Surveillance by PCR (09/20/2024 1:33 AM EDT) [facility] Simi auris PCR Result Not Detected Not Detected 09/20/2024 12:58 PM EDT [facility] Swab (Axilla and Groin) Non-blood Collection / Unknown 09/20/2024 1:33 AM EDT 09/20/2024 3:41 AM EDT Narrative [facility] - 09/20/2024 12:58 PM EDT This PCR assay was developed and its performance characteristics determined by [facility] as appropriate for clinical purposes. This assay has not been cleared or approved by the FDA, but is performed in a CLIA regulated laboratory that is qualified to perform high-complexity testing. us Tere Snow MD LAB MICROBIOLOGY - GENERAL ORDERABLES Final Result [facility] [address] [place] [address] * Phosphorus, Plasma (09/20/2024 1:33 AM EDT) Phosphorus, Plasma 4.1 2.5 - 4.5 mg/dL 09/20/2024 3:12 AM EDT [facility] Blood Venous blood specimen / Unknown Venipuncture / Unknown 09/20/2024 1:33 AM EDT 09/20/2024 2:37 AM EDT us Tere Snow MD LAB BLOOD ORDERABLES Final Result Performing Organization Address [facility]/ZIP Co de Phone Number [facility] [address] [place] [address] * Magnesium, Plasma (09/20/2024 1:33 AM EDT) Magnesium, Plasma 1.9 1.9 - 2.4 mg/dL 09/20/2024 3:12 AM EDT [facility] Blood Venous blood specimen / Unknown Venipuncture / Unknown 09/20/2024 1:33 AM EDT 09/20/2024 2:37 AM EDT Result [facility] us Tere Snow MD LAB BLOOD ORDERABLES Final Result Performing Organization Address City/[facility]/ZIP Co de Phone Number [facility] [address] [place] [address] * (ABNORMAL) CBC W/O Differential (09/20/2024 1:33 AM EDT) WBC Count 10.06 3.70 - 10.30 10*3/uL LAB HEMATOLOGY METHOD 09/20/2024 2:49 AM EDT [facility] RBC Count 3.40(L) 3.90 - 5.20 10*6/uL LAB HEMATOLOGY METHOD 09/20/2024 2:49 AM EDT [facility] HGB 9.6(L) 11.2 - 15.7 g/dL LAB HEMATOLOGY METHOD 09/20/2024 2:49 AM EDT [facility] HCT 29.4(L) 34.0 - 45.0 % LAB HEMATOLOGY METHOD 09/20/2024 2:49 AM EDT [facility] Platelet Count 413(H) 155 - 369 10*3/uL LAB HEMATOLOGY METHOD 09/20/2024 2:49 AM EDT [facility] MCV 87 79 - 98 fL LAB HEMATOLOGY METHOD 09/20/2024 2:49 AM EDT [facility] MCH 28.2 26.0 - 32.0 pg LAB HEMATOLOGY METHOD 09/20/2024 2:49 AM EDT [facility] MCHC 32.7 30.7 - 35.5 g/dL LAB HEMATOLOGY METHOD 09/20/2024 2:49 AM EDT [facility] RDW 15.1(H) 11.5 - 14.5 % LAB HEMATOLOGY METHOD 09/20/2024 2:49 AM EDT [facility] MPV 9.4 8.8 - 12.5 fL LAB HEMATOLOGY METHOD 09/20/2024 2:49 AM EDT [facility] nRBC 0.0 <=0.0 per 100 WBCs LAB HEMATOLOGY METHOD 09/20/2024 2:49 AM EDT [facility] Blood Venous blood specimen / Unknown Venipuncture / Unknown 09/20/2024 1:33 AM EDT 09/20/2024 2:37 AM EDT us Tere Snow MD LAB BLOOD ORDERABLES Final Result [facility] [address] [place] [address] * (ABNORMAL) Basic Metabolic Panel, Plasma (09/20/2024 1:33 AM EDT) Glucose, Plasma 93 74 - 99 mg/dL 09/20/2024 3:12 AM EDT [facility] BUN, Plasma <3(L) 7 - 21 mg/dL 09/20/2024 3:12 AM EDT [facility] Creatinine, Plasma 0.64 0.60 - 1.10 mg/dL 09/20/2024 3:12 AM EDT [facility] BUN/Creatinine Ratio 09/20/2024 3:12 AM EDT [facility] Comment:Unable to calculate, at least one value is above or below the detection limit. Sodium, Plasma 139 136 - 145 mmol/L 09/20/2024 3:12 AM EDT [facility] Potassium, Plasma 3.3(L) 3.6 - 4.9 mmol/L 09/20/2024 3:12 AM EDT [facility] Chloride, Plasma 105 97 - 107 mmol/L 09/20/2024 3:12 AM EDT [facility] CO2, Plasma 26 22 - 29 mmol/L 09/20/2024 3:12 AM EDT [facility] Anion Gap 8 6 - 16 mmol/L 09/20/2024 3:12 AM EDT [facility] Total Calcium, Plasma 7.8(L) 8.9 - 10.2 mg/dL 09/20/2024 3:12 AM EDT [facility] eGFRcr 105.2 mL/min/1.7 3m*2 09/20/2024 3:12 AM EDT [facility] Comment:Reported eGFRcr in m L/min/1.73m2 is based the CKD-EPI 2020 equation that does not use a race coefficient. Blood Venous blood specimen / Unknown Venipuncture / Unknown 09/20/2024 1:33 AM EDT 09/20/2024 2:37 AM EDT Tere Snow MD LAB BLOOD ORDERABLES Final Result [facility] [address] [place] [address] * POCT glucose meter (09/19/2024 11:05 PM EDT) [facility] POCT Glucose 98 74 - 99 [...] Comment 09/19/2024 11:06 PM EDT [facility] [employer] Professor ID Kelvin Yousif 09/19/2024 11:06 PM EDT HEALTH[facility]ARE LAB Device ID [id number] 09/19/2024 11:06 PM EDT [facility] Specimen Type POC Capillary 09/19/2024 11:06 PM EDT [facility] Blood Capillary blood specimen / Unknown 09/19/2024 11:05 PM EDT 09/19/2024 11:06 PM EDT Tere Snow MD LAB POINT OF CARE TEST DOCKED DEVICE UNSOLICITED RESULTS Final Result [facility] [address] [place] [address] * Urine Francis Panel (09/19/2024 8:30 PM EDT) [facility] Extra Reflex urine culture not indicated 09/20/2024 5:01 AM EDT [facility] Comment: Previously prelim verified as [...] URINE ORDERABLES Final Result Performing Organization Address City/[facility]/ZIP Co de Phone Number [facility] [address] [place] [address] * (ABNORMAL) POCT glucose meter (09/19/2024 6:10 [...] Comment 09/19/2024 6:11 AM EDT [facility] [employer] Professor ID Sarah Johnson 09/19/2024 6:11 AM EDT [facility] Device ID [id number] 09/19/2024 6:11 AM EDT [facility] Specimen Type POC Capillary 09/19/2024 6:11 AM EDT [facility] Blood Capillary blood specimen / Unknown 09/19/2024 6:10 AM EDT 09/19/2024 6:11 AM EDT us Tere Snow MD LAB POINT OF CARE TEST DOCKED DEVICE UNSOLICITED RESULTS Final Result Performing Organization Address City/[facility]/ZIP Co de Phone Number [facility] [address] [place] [address] * (ABNORMAL) POCT glucose meter (09/19/2024 5:27 [...] Comment 09/19/2024 5:29 AM EDT [facility]ARE LAB [employer] Professor ID Sarah Johnson 09/19/2024 5:29 AM EDT [facility]ALTHCARE LAB Device ID [id number] 09/19/2024 5:29 AM EDT HEALTHCARE LAB Specimen Type POC Capillary 09/19/2024 5:29 AM EDT [facility]ALTH[facility] LAB Blood Capillary blood specimen / Unknown 09/19/2024 5:27 AM EDT 09/19/2024 5:29 AM EDT Tere Snow MD LAB POINT OF CARE TEST DOCKED DEVICE UNSOLICITED RESULTS Final Result Performing Organization Address City/State/[facility] Co de Phone Number HEALTHCARE LAB [address] [place] [address] * (ABNORMAL) POCT glucose meter (09/19/2024 2:31 AM EDT) [facility] Signature POCT Glucose 103(H) 74 - 99 [...] Comment 09/19/2024 2:33 AM EDT [facility]ALTHCARE LAB [employer] Professor ID Sarah Johnson 09/19/2024 2:33 AM EDT HEALTHCARE LAB Device ID [id number] 09/19/2024 2:33 AM EDT HEALTHCARE LAB Specimen Type POC Capillary 09/19/2024 2:33 AM EDT HEALTHCARE LAB Blood Capillary blood specimen / Unknown 09/19/2024 2:31 AM EDT 09/19/2024 2:33 AM EDT us Tere Snow MD LAB POINT OF CARE TEST DOCKED DEVICE UNSOLICITED RESULTS Final Result [facility] [address] [place] [id number] * (ABNORMAL) Basic Metabolic Panel, Plasma (09/19/2024 12:38 AM EDT) Glucose, Plasma 59(L) 74 - 99 mg/dL 09/19/2024 1:30 AM EDT [facility] BUN, Plasma 4(L) 7 - 21 mg/dL 09/19/2024 1:30 AM EDT [facility] Creatinine, Plasma 0.74 0.60 - 1.10 mg/dL 09/19/2024 1:30 AM EDT [facility] BUN/Creatinine Ratio 5 09/19/2024 1:30 AM EDT [facility] Sodium, Plasma 142 136 - 145 mmol/L 09/19/2024 1:30 AM EDT [facility] Potassium, Plasma 3.7 3.6 - 4.9 mmol/L 09/19/2024 1:30 AM EDT [facility] Chloride, Plasma 108(H) 97 - 107 mmol/L 09/19/2024 1:30 AM EDT [facility] CO2, Plasma 26 22 - 29 mmol/L 09/19/2024 1:30 AM EDT [facility] Anion Gap 8 6 - 16 mmol/L 09/19/2024 1:30 AM EDT [facility] Total Calcium, Plasma 7.9(L) 8.9 - 10.2 mg/dL 09/19/2024 1:30 AM EDT [facility] eGFRcr 96.3 mL/min/1.7 3m*2 09/19/2024 1:30 AM EDT [facility] Comment:Reported eGFRcr in m L/min/1.73m2 is based the CKD-EPI 2020 equation that does not use a race coefficient. Blood Venous blood specimen / Unknown Venipuncture / Unknown 09/19/2024 12:38 AM EDT 09/19/2024 12:45 AM EDT Tere Snow MD LAB BLOOD ORDERABLES Final Result [facility] [address] [place] [address] * (ABNORMAL) Magnesium, Plasma (09/19/2024 12:38 AM EDT) [facility] Magnesium, Plasma 1.8(L) 1.9 - 2.4 mg/dL 09/19/2024 1:30 AM EDT [facility] Blood Venous blood specimen / Unknown Venipuncture / Unknown 09/19/2024 12:38 AM EDT 09/19/2024 12:45 AM EDT Tere Snow MD LAB BLOOD ORDERABLES Final Result Performing Organization Address [facility]/ZIP Co de Phone Number [facility] [address] [place] [address] * (ABNORMAL) CBC W/O Differential (09/19/2024 12:38 AM EDT) [facility] WBC Count 7.40 3.70 - 10.30 10*3/uL LAB HEMATOLOGY METHOD 09/19/2024 1:02 AM EDT [facility] RBC Count 3.59(L) 3.90 - 5.20 10*6/uL LAB HEMATOLOGY METHOD 09/19/2024 1:02 AM EDT [facility] HGB 10.1(L) 11.2 - 15.7 g/dL LAB HEMATOLOGY METHOD 09/19/2024 1:02 AM EDT [facility] HCT 31.8(L) 34.0 - 45.0 % LAB HEMATOLOGY METHOD 09/19/2024 1:02 AM EDT [facility] Platelet Count 403(H) 155 - 369 10*3/uL LAB HEMATOLOGY METHOD 09/19/2024 1:02 AM EDT [facility] MCV 89 79 - 98 fL LAB HEMATOLOGY METHOD 09/19/2024 1:02 AM EDT [facility] MCH 28.1 26.0 - 32.0 pg LAB HEMATOLOGY METHOD 09/19/2024 1:02 AM EDT [facility] MCHC 31.8 30.7 - 35.5 g/dL LAB HEMATOLOGY METHOD 09/19/2024 1:02 AM EDT [facility] RDW 14.7(H) 11.5 - 14.5 % LAB HEMATOLOGY METHOD 09/19/2024 1:02 AM EDT [facility] MPV 9.2 8.8 - 12.5 fL LAB HEMATOLOGY METHOD 09/19/2024 1:02 AM EDT [facility] nRBC 0.0 <=0.0 per 100 WBCs LAB HEMATOLOGY METHOD 09/19/2024 1:02 AM EDT [facility] Blood Venous blood specimen / Unknown Venipuncture / Unknown 09/19/2024 12:38 AM EDT 09/19/2024 12:52 AM EDT us Tere Snow MD LAB BLOOD ORDERABLES Final Result Performing Organization Address [facility]/ZIP Co de Phone Number [facility] [address] [place] [address] * (ABNORMAL) Phosphorus, Plasma (09/19/2024 12:38 AM EDT) Phosphorus, Plasma 5.5(H) 2.5 - 4.5 mg/dL 09/19/2024 1:30 AM EDT [facility] Blood Venous blood specimen / Unknown Venipuncture / Unknown 09/19/2024 12:38 AM EDT 09/19/2024 12:45 AM EDT us Tere Snow MD LAB BLOOD ORDERABLES Final Result [facility] [address] [place] [address] * PERIPHERAL IV (SMART[employer] LINK) (09/18/2024 6:33 PM EDT) Narrative Cristel Encinas RN - 09/18/2024 6:33 PM EDT Cristel Encinas, RN 09/18/2024 6:38 PM Insert peripheral IV Performed by: Cristel Encinas, RN Authorized by: Tere Snow MD Stringer Protocol: Verbal consent obtained?: Yes Risks and [...] ORDERA BLES Final Result [facility] [address] [place] [address], * (ABNORMAL) Comprehensive metabolic panel (09/18/2024 6:06 PM EDT) Glucose, Plasma 90 74 - 99 mg/dL 09/18/2024 10:34 PM EDT [facility] BUN, Plasma 5(L) 7 - 21 mg/dL 09/18/2024 10:34 PM EDT [facility] Creatinine, Plasma 0.73 0.60 - 1.10 mg/dL 09/18/2024 10:34 PM EDT [facility] BUN/Creatinine Ratio 7 09/18/2024 10:34 PM EDT [facility] Sodium, Plasma 140 136 - 145 mmol/L 09/18/2024 10:34 PM EDT [facility] Potassium, Plasma 3.6 3.6 - 4.9 mmol/L 09/18/2024 10:34 PM EDT [facility] Chloride, Plasma 105 97 - 107 mmol/L 09/18/2024 10:34 PM EDT [facility] CO2, Plasma 25 22 - 29 mmol/L 09/18/2024 10:34 PM EDT [facility] Anion Gap 10 6 - 16 mmol/L 09/18/2024 10:34 PM EDT [facility] Total Calcium, Plasma 8.0(L) 8.9 - 10.2 mg/dL 09/18/2024 10:34 PM EDT [facility] Total Protein 5.0(L) 6.3 - 7.9 g/dL 09/18/2024 10:34 PM EDT [facility] Albumin, Plasma 2.6(L) 3.5 - 5.2 g/dL 09/18/2024 10:34 PM EDT [facility] AST, Plasma 146(H) 10 - 35 U/L 09/18/2024 10:34 PM EDT [facility] ALT, Plasma 86(H) 10 - 35 U/L 09/18/2024 10:34 PM EDT [facility] Alkaline Phosphatase, Plasma 188(H) 35 - 104 U/L 09/18/2024 10:34 PM EDT [facility] Total Bilirubin, Plasma 0.2 0.2 - 1.1 mg/dL 09/18/2024 10:34 PM EDT [facility] eGFRcr 97.9 mL/min/1.7 3m*2 09/18/2024 10:34 PM EDT [facility] Comment:Reported eGFRcr in m L/min/1.73m2 is based the CKD-EPI 2020 equation that does not use a race coefficient. Blood Venous blood specimen / Unknown Venipuncture / Unknown 09/18/2024 6:06 PM EDT 09/18/2024 7:08 PM EDT Betty Garcia MD LAB BLOOD ORDERABLES Final Result Performing Organization Address City/[facility]/[place] [address] * (ABNORMAL) Phosphorus (09/18/2024 6:05 PM EDT) Phosphorus, Plasma 5.3(H) 2.5 - 4.5 mg/dL 09/18/2024 8:08 PM EDT [facility] Blood Venous blood specimen / Unknown Venipuncture / Unknown 09/18/2024 6:05 PM EDT 09/18/2024 7:08 PM EDT Result [facility] Tere Snow MD LAB BLOOD ORDERABLES Final Result Performing Organization Address [facility]/[place] [address] * (ABNORMAL) Magnesium (09/18/2024 6:05 PM EDT) Magnesium, Plasma 1.6(L) 1.9 - 2.4 mg/dL 09/18/2024 8:08 PM EDT [facility] Blood Venous blood specimen / Unknown Venipuncture / Unknown 09/18/2024 6:05 PM EDT 09/18/2024 7:08 PM EDT Tere Snow MD LAB BLOOD ORDERABLES Final Result Performing Organization Address City/[facility]/ZIP Co de Phone Number [facility] [address] [place] [address] * (ABNORMAL) Basic metabolic panel (09/18/2024 6:05 PM EDT) Glucose, Plasma 89 74 - 99 mg/dL 09/18/2024 8:08 PM EDT [facility] BUN, Plasma 5(L) 7 - 21 mg/dL 09/18/2024 8:08 PM EDT [facility] Creatinine, Plasma 0.72 0.60 - 1.10 mg/dL 09/18/2024 8:08 PM EDT [facility] BUN/Creatinine Ratio 7 09/18/2024 8:08 PM EDT [facility] Sodium, Plasma 139 136 - 145 mmol/L 09/18/2024 8:08 PM EDT [facility] Potassium, Plasma 3.5(L) 3.6 - 4.9 mmol/L 09/18/2024 8:08 PM EDT [facility] Chloride, Plasma 104 97 - 107 mmol/L 09/18/2024 8:08 PM EDT [facility] CO2, Plasma 26 22 - 29 mmol/L 09/18/2024 8:08 PM EDT [facility] Anion Gap 9 6 - 16 mmol/L 09/18/2024 8:08 PM EDT [facility] Total Calcium, Plasma 8.1(L) 8.9 - 10.2 mg/dL 09/18/2024 8:08 PM EDT [facility] eGFRcr 99.5 mL/min/1.7 3m*2 09/18/2024 8:08 PM EDT [facility] Comment:Reported eGFRcr in m L/min/1.73m2 is based the CKD-EPI 2020 equation that does not use a race coefficient. Blood Venous blood specimen / Unknown Venipuncture / Unknown 09/18/2024 6:05 PM EDT 09/18/2024 7:08 PM EDT us Tere Snow MD LAB BLOOD ORDERABLES Final Result [facility] [address] [place] [address] * Lactate, venous (09/18/2024 11:16 AM EDT) Lactate, Venous, Whole Blood 1.0 0.5 - 2.2 mmol/L LAB HEMATOLOGY METHOD 09/18/2024 11:30 AM EDT [facility] Blood Venous blood specimen / Unknown Venipuncture / Unknown 09/18/2024 11:16 AM EDT 09/18/2024 11:27 AM EDT us Tere Snow MD LAB BLOOD ORDERABLES Final Result [facility] [address] [place] [address] * (ABNORMAL) CBC and differential (09/18/2024 11:16 AM EDT) WBC Count 6.49 3.70 - 10.30 10*3/uL LAB HEMATOLOGY METHOD 09/18/2024 12:38 PM EDT [facility] RBC Count 3.47(L) 3.90 - 5.20 10*6/uL LAB HEMATOLOGY METHOD 09/18/2024 12:38 PM EDT [facility] HGB 9.8(L) 11.2 - 15.7 g/dL LAB HEMATOLOGY METHOD 09/18/2024 12:38 PM EDT [facility] HCT 30.8(L) 34.0 - 45.0 % LAB HEMATOLOGY METHOD 09/18/2024 12:38 PM EDT [facility] Platelet Count 451(H) 155 - 369 10*3/uL LAB HEMATOLOGY METHOD 09/18/2024 12:38 PM EDT [facility] MCV 89 79 - 98 fL LAB HEMATOLOGY METHOD 09/18/2024 12:38 PM EDT [facility] MCH 28.2 26.0 - 32.0 pg LAB HEMATOLOGY METHOD 09/18/2024 12:38 PM EDT [facility] MCHC 31.8 30.7 - 35.5 g/dL LAB HEMATOLOGY METHOD 09/18/2024 12:38 PM EDT [facility] RDW 14.9(H) 11.5 - 14.5 % LAB HEMATOLOGY METHOD 09/18/2024 12:38 PM EDT [facility] MPV 9.6 8.8 - 12.5 fL LAB HEMATOLOGY METHOD 09/18/2024 12:38 PM EDT [facility] nRBC 0.0 <=0.0 per 100 WBCs LAB HEMATOLOGY METHOD 09/18/2024 12:38 PM EDT [facility] Differential Type Automated LAB HEMATOLOGY METHOD 09/18/2024 12:38 PM EDT [facility] Neutrophils % 45 % LAB HEMATOLOGY METHOD 09/18/2024 12:38 PM EDT [facility] Lymphocytes % 41 % LAB HEMATOLOGY METHOD 09/18/2024 12:38 PM EDT [facility] Monocytes % 9 % LAB HEMATOLOGY METHOD 09/18/2024 12:38 PM EDT [facility] Eosinophils % 4 % LAB HEMATOLOGY METHOD 09/18/2024 12:38 PM EDT [facility] Basophils % 1 % LAB HEMATOLOGY METHOD 09/18/2024 12:38 PM EDT [facility] Immature Granulocytes % 0 % LAB HEMATOLOGY METHOD 09/18/2024 12:38 PM EDT [facility] Neutrophils Absolute 2.85 1.60 - 6.10 10*3/uL LAB HEMATOLOGY METHOD 09/18/2024 12:38 PM EDT [facility] Lymphocytes Absolute 2.67 1.20 - 3.90 10*3/uL LAB HEMATOLOGY METHOD 09/18/2024 12:38 PM EDT [facility] Monocytes Absolute 0.61 0.30 - 0.90 10*3/uL LAB HEMATOLOGY METHOD 09/18/2024 12:38 PM EDT [facility] Eosinophils Absolute 0.26 0.00 - 0.50 10*3/uL LAB HEMATOLOGY METHOD 09/18/2024 12:38 PM EDT [facility] Basophils Absolute 0.08 0.00 - 0.10 10*3/uL LAB HEMATOLOGY METHOD 09/18/2024 12:38 PM EDT [facility] Immature Granulocytes Absolute 0.02 0.00 - 0.06 10*3/uL LAB HEMATOLOGY METHOD 09/18/2024 12:38 PM EDT [facility] Blood Venous blood specimen / Unknown Venipuncture / Unknown 09/18/2024 11:16 AM EDT 09/18/2024 12:01 PM EDT Narrative [facility] - 09/18/2024 12:38 PM EDT Therapeutic decision making should be based on absolute values, rather than percentages. Betty Garcia MD LAB BLOOD ORDERABLES Final Result Performing Organization Address City/[facility]/ZIP Co de Phone Number [facility] [address] [place] [address] * ECG Adult (09/18/2024 9:16 AM EDT) EKG DIAGNOSIS CLASS Abnormal MUSE ECG Ventricular Rate 78 BPM MUSE ECG Atrial Rate 78 BPM MUSE ECG DC Interval 138 ms MUSE ECG QRSD Interval 96 ms MUSE ECG QT Interval 446 ms MUSE ECG QTC Interval 508 ms MUSE ECG P [place] 79 degrees MUSE ECG R [place] 59 degrees MUSE ECG T Wave [place] 68 degrees MUSE ECG Diagnosis Normal sinus [...] ORDERABLES Final Resu lt Performing Organization Address [facility] Co de Phone Number MUSE ECG * (ABNORMAL) Magnesium (09/18/2024 2:19 AM EDT) Magnesium, Plasma 1.7(L) 1.9 - 2.4 mg/dL 09/18/2024 3:02 AM EDT [facility] Blood Venous blood specimen / Unknown Venipuncture / Unknown 09/18/2024 2:19 AM EDT 09/18/2024 2:36 AM EDT Betty Garcia MD LAB BLOOD ORDERABLES Final Result Performing Organization Address [facility] Co de Phone Number [facility] [address] [place] [address] * (ABNORMAL) Phosphorus (09/18/2024 2:19 AM EDT) Phosphorus, Plasma 5.6(H) 2.5 - 4.5 mg/dL 09/18/2024 3:02 AM EDT [facility] Blood Venous blood specimen / Unknown Venipuncture / Unknown 09/18/2024 2:19 AM EDT 09/18/2024 2:36 AM EDT us Betty Garcia MD LAB BLOOD ORDERABLES Final Result [facility] [address] [place] [address] * (ABNORMAL) CBC (09/18/2024 2:19 AM EDT) WBC Count 15.28(H) 3.70 - 10.30 10*3/uL LAB HEMATOLOGY METHOD 09/18/2024 2:45 AM EDT [facility] RBC Count 3.80(L) 3.90 - 5.20 10*6/uL LAB HEMATOLOGY METHOD 09/18/2024 2:45 AM EDT [facility] HGB 10.6(L) 11.2 - 15.7 g/dL LAB HEMATOLOGY METHOD 09/18/2024 2:45 AM EDT [facility] HCT 33.1(L) 34.0 - 45.0 % LAB HEMATOLOGY METHOD 09/18/2024 2:45 AM EDT [facility] Platelet Count 468(H) 155 - 369 10*3/uL LAB HEMATOLOGY METHOD 09/18/2024 2:45 AM EDT [facility] MCV 87 79 - 98 fL LAB HEMATOLOGY METHOD 09/18/2024 2:45 AM EDT [facility] MCH 27.9 26.0 - 32.0 pg LAB HEMATOLOGY METHOD 09/18/2024 2:45 AM EDT [facility] MCHC 32.0 30.7 - 35.5 g/dL LAB HEMATOLOGY METHOD 09/18/2024 2:45 AM EDT [facility] RDW 14.9(H) 11.5 - 14.5 % LAB HEMATOLOGY METHOD 09/18/2024 2:45 AM EDT [facility] MPV 9.0 8.8 - 12.5 fL LAB HEMATOLOGY METHOD 09/18/2024 2:45 AM EDT [facility] nRBC 0.0 <=0.0 per 100 WBCs LAB HEMATOLOGY METHOD 09/18/2024 2:45 AM EDT [facility] Blood Venous blood specimen / Unknown Venipuncture / Unknown 09/18/2024 2:19 AM EDT 09/18/2024 2:39 AM EDT us Betty Garcia MD LAB BLOOD ORDERABLES Final Result [facility] [address] [place] [address] * (ABNORMAL) Basic Metabolic Panel (09/18/2024 2:19 AM EDT) Glucose, Plasma 89 74 - 99 mg/dL 09/18/2024 3:07 AM EDT [facility] BUN, Plasma 6(L) 7 - 21 mg/dL 09/18/2024 3:07 AM EDT [facility] Creatinine, Plasma 0.81 0.60 - 1.10 mg/dL 09/18/2024 3:07 AM EDT [facility] BUN/Creatinine Ratio 7 09/18/2024 3:07 AM EDT [facility] Sodium, Plasma 138 136 - 145 mmol/L 09/18/2024 3:07 AM EDT [facility] Potassium, Plasma 3.6 3.6 - 4.9 mmol/L 09/18/2024 3:07 AM EDT [facility] Chloride, Plasma 101 97 - 107 mmol/L 09/18/2024 3:07 AM EDT [facility] CO2, Plasma 26 22 - 29 mmol/L 09/18/2024 3:07 AM EDT [facility] Anion Gap 11 6 - 16 mmol/L 09/18/2024 3:07 AM EDT [facility] Total Calcium, Plasma 8.5(L) 8.9 - 10.2 mg/dL 09/18/2024 3:07 AM EDT [facility] eGFRcr 86.4 mL/min/1.7 3m*2 09/18/2024 3:07 AM EDT [facility] Comment:Reported eGFRcr in m L/min/1.73m2 is based the CKD-EPI 2020 equation that does not use a race coefficient. Blood Venous blood specimen / Unknown Venipuncture / Unknown 09/18/2024 2:19 AM EDT 09/18/2024 2:36 AM EDT Betty Garcia MD LAB BLOOD ORDERABLES Final Result [facility] [address] [place] [address] * Clostridium difficile EIA (09/18/2024 2:18 AM EDT) C difficile EIA Interpretation C. difficile infection not likely. May represent colonization . 09/18/2024 7:51 AM EDT [facility] Toxin Result Negative Negative 09/18/2024 7:51 AM EDT [facility] GDH Result Positive Negative 09/18/2024 7:51 AM EDT [facility] Stool Rectum structure / Unknown Non-blood Collection / Unknown 09/18/2024 2:18 AM EDT 09/18/2024 3:01 AM EDT Narrative [facility] - 09/18/2024 7:51 AM EDT This toxin/GDH assay was reflexed from a positive C. difficile PCR result. Betty Garcia MD LAB MICROBIOLOGY - GENERAL ORDERABLES Final Result Performing Organization Address City/[facility]/ZIP Co de Phone Number [facility] [address] [place] [address] * Comprehensive GI Panel by PCR (09/18/2024 2:18 AM EDT) Campylobacter PCR Result Not Detected Not Detected 09/18/2024 7:51 AM EDT [facility] Plesiomonas shigelloides PCR Result Not Detected Not Detected 09/18/2024 7:51 AM EDT [facility] Salmonella PCR Result Not Detected Not Detected 09/18/2024 7:51 AM EDT [facility] Vibrio species PCR Result Not Detected Not Detected 09/18/2024 7:51 AM EDT [facility] Vibrio cholerae PCR Result Not Detected Not Detected 09/18/2024 7:51 AM EDT [facility] Yersinia enterocolitica PCR Result Not Detected Not Detected 09/18/2024 7:51 AM EDT [facility] Enteroaggregative E. coli (EAEC) PCR Result Not Detected Not Detected 09/18/2024 7:51 AM EDT [facility] Enteropathogenic E. coli (EPEC) PCR Result Not Detected Not Detected 09/18/2024 7:51 AM EDT [facility] Enterotoxigenic E. coli (ETEC) lt/st PCR Result Not Detected Not Detected 09/18/2024 7:51 AM EDT [facility] Shiga-like Toxin-Producing E.coli (STEC) stx1/stx2 PCR Resu Not Detected Not Detected 09/18/2024 7:51 AM EDT [facility] E coli 0157 PCR Result Not Detected Not Detected 09/18/2024 7:51 AM EDT [facility] Shigella/Enteroinvas alexsandra E. coli (EIEC) PCR Result Not Detected Not Detected 09/18/2024 7:51 AM EDT [facility] Cryptosporidium PCR Result Not Detected Not Detected 09/18/2024 7:51 AM EDT [facility] Cyclospora cayetanensis PCR Result Not Detected Not Detected 09/18/2024 7:51 AM EDT [facility] Entamoeba histolytica PCR Result Not Detected Not Detected 09/18/2024 7:51 AM EDT [facility] Giardia duodenalis (aka Giardia lamblia) PCR Result Not Detected Not Detected 09/18/2024 7:51 AM EDT [facility] Adenovirus F 40/41 PCR Result Not Detected Not Detected 09/18/2024 7:51 AM EDT [facility] Astrovirus PCR Result Not Detected Not Detected 09/18/2024 7:51 AM EDT [facility] Norovirus GI/GII PCR Result Not Detected Not Detected 09/18/2024 7:51 AM EDT [facility] Rotavirus A PCR Result Not Detected Not Detected 09/18/2024 7:51 AM EDT [facility] Sapovirus PCR Result Not Detected Not Detected 09/18/2024 7:51 AM EDT [facility] Stool Rectum structure / Unknown Non-blood Collection / Unknown 09/18/2024 2:18 AM EDT 09/18/2024 3:01 AM EDT Narrative [facility] - 09/18/2024 7:51 AM EDT [...] LAB MICROBIOLOGY - GENERAL ORDERABLES Final Result [facility] [address] [place] [address] * (ABNORMAL) Clostridiodes (Clostridium) difficile PCR (09/18/2024 2:18 AM EDT) C difficile PCR toxin B gene DNA Result Detected, Reflex GDH/Toxin antigen test pending, see CDEIA for final result.(A) Not Detected 09/18/2024 4:41 AM EDT [facility] Comment:Reflex GDH/Toxin ant igen test pending, see CDEIA for final result. Stool Rectum structure / Unknown Non-blood Collection / Unknown 09/18/2024 2:18 AM EDT 09/18/2024 3:01 AM EDT Narrative [facility] - 09/18/2024 4:41 AM EDT [...] LAB MICROBIOLOGY - GENERAL ORDERABLES Final Result [facility] [address] [place] [address] * ECG Adult (09/18/2024 1:37 AM EDT) EKG DIAGNOSIS CLASS Abnormal MUSE ECG Ventricular Rate 90 BPM MUSE ECG Atrial Rate 90 BPM MUSE ECG DC Interval 138 ms MUSE ECG QRSD Interval 104 ms MUSE ECG QT Interval 440 ms MUSE ECG QTC Interval 538 ms MUSE ECG P [place] 61 degrees MUSE ECG R [place] 56 degrees MUSE ECG T Wave [place] 71 degrees MUSE ECG Diagnosis Normal sinus rhythm MUSE ECG Diagnosis Low voltage QRS MUSE ECG Diagnosis Prolonged QT MUSE ECG Diagnosis Abnormal ECG MUSE ECG Diagnosis MUSE ECG Diagnosis Confirmed by Marlena Zhou ([id number]) on 09/18/2024 12:14:01 PM MUSE ECG 09/18/2024 1:37 AM EDT 09/18/2024 12:14 PM EDT us Betty Garcia MD ECG ORDERABLES Final Resu lt Performing Organization Address City/[facility]/ZIP Co de Phone Number MUSE ECG [...] Disorders of magnesium metabolism Hypocalcemia S/P colostomy ([facility]/HCC) Colostomy status documented in this encounter Admitting [...] PRN, Starting on Tue09/19/24 at 0144, Until [place] 09/23/24 at 1405, Administer over 15 Minutes, [...] Brandie Mason RN) 0809 (Given - Provider: Gneo Guillory RN)2140 (Given - Provider: Kelvin Yousif, [...] Brandie Mason RN) 2139 (Given - Provider: eKlvin Yousif, JAMARI) PRN Medication Order 09/21/2024 09/22/2024 [...] 1405, Routine, nausea, vomiting 0857 [facility] Provider: Kehinde Andrade, JAMARI) oxyCODONE (Roxicodone) [...] documented as of this encounter Care Teams Construction Accountant Relationship Specialty Start Date End Date Champ Quiroz MD [address] [place] [address] [place] [address] PCP - General Internal Medicine 06/29/24 documented as of this encounter
--- OUTSIDE RECORDS SUMMARY | 2024-10-01 11:15 | XMS_ITS ---
Author Organization [facility] Address [address] [facility] [address] [place] [address] Care Team Providers Care Television Service Engineer Name Role Phone Michaelle Rivas Primary Care Provider Champ Quiroz Unavailable [phone] Allergies Allergen (clinical drug ingredient) Drug/Non Drug Allergy documented on EMR Reaction Allergy Type Onset Date Status LATEX GLOVES (uncoded) Unknown Allergy Active acetaminophen / oxycodone Percocet stomach upset, sweating Drug Allergy Active REASON FOR VISIT D/C 09/23/2024 Medications Medication SIG (Take, Route, Frequency, Duration) Notes Start Date End Date Status buPROPion HCl ER (XL) 300 MG 1 tab(s) orally every 24 hours; Duration: 30 days Active Metoprolol Tartrate 25 MG 1/2 tab Orally Twice a day; Duration: 14 days Active Ondansetron 4 MG 1 tablet on the tongue and allow to dissolve Orally 3 times a day; Duration: 10 days As needed 09/25/2024 Active traZODone HCl 50 MG 1 tablet at bedtime as needed Orally Once a day; Duration: 30 days 07/30/2024 Active Citalopram Hydrobromide 40 MG 1 tab(s) orally once a day; Duration: 90 days Active Combivent Respimat 20-100 MCG/ACT INHALE 1 PUFF BY MOUTH 4 TIMES DAILY; Duration: 30 days prn Active Rosuvastatin Calcium 40 MG 1 tablet Oral ly Once a day; Duration: 30 days Active hydrOXYzine HCl 10 MG 1 tab orally every 8 hours; Duration: 30 days Active Primidone 50 MG 1 tab(s) orally twic e a day; Duration: 90 days Active Loratadine 10 MG 1 tablet Orally Once a day Active Aspirin 81 81 MG 1 tablet Orally Once a day Active Social History Tobacco [...] Problem Status W/U Status Risk Notes Problem Generalized anxiety disorder (23076594) Generalized anxiety disorder (F41.1) Active confirmed Vital Signs Temperature 97.7 degrees Fahrenheit 10/02/19 25 Blood pressure systolic 126 mm Hg 10/02/19 25 Blood pressure diastolic 72 mm Hg 025 Heart Rate 84 /min 10/01/2024 Height 5 ft 1 in in 10/01/2024 Weight 117 lbs 10/01/2024 BMI 22.1 kg/m2 10/01/2024 Encounters Encounter Location Date Provider Diagnosis [facility] [place] [address] [facility] [address] [place] [address] 10/01/2024 Champ Quiroz Generalized anxiety disorder F41.1 ; Atherosclerosis of [place] coronary artery of [place] heart without angina pectoris I25.10 ; Colostomy status Z93.3 and Hospital discharge follow-up Z09 Assessments Encounter Date Diagnosis (ICD Code) Assessment Notes Treatment Notes Treatment Clinical Notes Section Notes 10/01/2024 Generalized anxiety disorder (ICD-10 - F41.1) The patient is having significant stress about her housing situation. She is unable to work due to her chronic illnesses. Therefore she is having to bounce around for housing and she feels like a burden. She is in the process of applying for disability. She said that her medication help her with the anxiety. We refered her to [facility] and the Medicare office to see if she can get in contact with a therapist and a social services technician. 10/01/2024 Atherosclerosis of [place] coronary artery of [place] heart without angina pectoris (ICD-10 - I25.10) Overall stable post bypass. On appropriate medications. 10/01/2024 Colostomy status (ICD-10 - Z93.3) Hopefully will have reversal soon. Continue to follow with GI. No changes in plan 10/01/2024 Hospital discharge follow-up (ICD-10 - Z09) No complaints or complications since she has been released from the hospital. She has had no abdominal pain. She has follow up with the surgeons at . Has plans for colostomy reversal. Her problem list has been updated. Her medication list has been reconcilled. Plan Of Treatment Treatment Notes Assessment Notes Generalized anxiety disorder The patient is having significant stress about her housing situation. She is unable to work due to her chronic illnesses. Therefore she is having to bounce around for housing and she feels like a burden. She is in the process of applying for disability. She said that her medication help her with the anxiety. We refered her to [facility] and the Medicare office to see if she can get in contact with a therapist and a social services technician. Atherosclerosis of [place] co ronary artery of [place] heart without angina pectoris Overall stable post bypass. On appropriate medications. Colostomy status Hopefully will have reversal soon. Continue to follow with GI. No changes in plan Hospital discharge follow-up No complain ts or complications since she has been released from the hospital. She has had no abdominal pain. She has follow up with the surgeons at . Has plans for colostomy reversal. Her problem list has been updated. Her medication list has been reconcilled. Next Appt Details Follow Up: prn,2 Months, [place] son: Provider Name:Champ Quiroz, 11/08/2024 11:45:00 AM, [address] [place] [address], [address], Progress Notes * Rere REESE ADOB: [birth year] (53 yo F)Acc No.[id number]:10/01/2024 HOSP F/U Patient: Dayana CASIANO Rere Lois Provider: Dayana Quiroz MD :1970 A ge:53 Y S ex:Female Date:10/01/2024 Address:[address] [place] [address] [place], [id number] Pcp:Michaelle Rivas Subjective: * Chief Complaints: * 1 . D/C 09/23/2024. * HPI: g en: The patient was recently admitted to gen surg at and was in the ICU for suspected enteritis treatment with IV antibiotics. The patient recieved several liters of fluid, but she never required pressors. She completed 7 days worth of antibiotics and her abdominal pain was under control at the time of discharge. Her blood sugar was low at the hospital. Since her hospitilization, she has not had any abdominal pain. Her ostomy output has normalized and the smell has returned to normal. She has been stressed since she got out of the hosptual in june. She is stressed becuase she cant get a job, she doesnt have a place to live consistently, she needs to have another surgery. She is staying with her step mom. She was originally living with her sister, but they all smoke. She is going to have a colostomy reversal in the coming months. She is in the process of applying for disability. She has no money or anyway to support her self. * Medical History: H ormone replacement therapy, Depression, Copd, Asthma, Smoker, Tremors, Coronary artery disease, status post CABG May [address] [facility], Sepsis, bowel ischemia and colostomy April/[address] [facility], Colitis. * Surgical History: l t rotator cuff 2020, rt hand surgery 01/2023, colon resection 04/30/24. * Hospitalization/Major Diagno stic Procedure: H [facility] 01/2022, - heart attach 04/30/2024-06/28/24, Septic 07/24/2024, [facility]- abd pain 07/2024, [facility] 09/2024. * Family History: F ather: , Cholesterol [...] active: no. Travel outside [place]: no. 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 * Medications: T aking Loratadine 10 MG Tablet 1 tablet Orally [...] tablet Orally Once a day , Taking buPROPion HCl ER (XL) 300 MG Tablet Extended Release 24 Hour 1 tab(s) orally every 24 hours , Taking Metoprolol Tartrate 25 MG Tablet 1/2 tab Orally Twice a day , Taking traZODone HCl 50 MG Tablet 1 tablet at bedtime as needed Orally Once a day , Taking Ondansetron 4 MG Tablet Disintegrating 1 tablet on the tongue and allow to dissolve Orally 3 times a day As needed, Discontinued Vancomycin HCl , Notes to Pharmacist: qid, Discontinued Benzonatate 200 MG Capsule 1 capsule as needed Orally Three times a day , Medication List reviewed and reconciled with the patient * Allergies: L ATEX GLOVES, Percocet: stomach upset, sweating - Side Effects. Objective: * Vitals: N urse: be, Pain: 0, Temp: 97.7, RR: 16, HR: 84, BP: 126/72, Ht: 5 ft 1 in, Wt: 117, BMI:22.1. * Examination: G eneral Examination: General P [...] N ormal Mood/Affect. Assessment: * Assessment: 1. G eneralized anxiety disorder - F41.1 (Primary) 2 . A therosclerosis of [place] coronary artery of [place] heart without angina pectoris - I25.10 3 . C olostomy status - Z93.3 4 . H ospital discharge follow-up - Z09 Plan: * Treatment: 2. A therosclerosis of [place] coronary artery of [place] heart without angina pectoris Notes: Overall stable post bypass. On appropriate medications. 3. C olostomy status Notes: Hopefully will have reversal soon. Continue to follow with GI. No changes in plan 4. H ospital discharge follow-up Notes: No complaints or complications since she has been released from the hospital. She has had no abdominal pain. She has follow up with the surgeons at . Has plans for colostomy reversal. Her problem list has been updated. Her medication list has been reconcilled. * Procedure Codes: 9 9496 TRANS CARE MGMT 7 DAY DISCH, Modifiers: 25 , 1111F [facility] MED MERGE * Follow Up: p rn,2 Months * * Sign off status: Completed true * Provider: Dayana Quiroz MD Date: 0 10/01/2024 Generated for Printi ng/Faleolag/eTransmitting on: 0 11/05/2024 02:04 PM EDT History and Physical Notes * HPI (History of Present Illness) Category Sub-Category Detail Notes Category Not es gen The patient was recently admitted to gen surg at and was in the ICU for suspected enteritis treatment with IV antibiotics. The patient recieved several liters of fluid, but she never required pressors. She completed 7 days worth of antibiotics and her abdominal pain was under control at the time of discharge. Her blood sugar was low at the hospital. Since her hospitilization, she has not had any abdominal pain. Her ostomy output has normalized and the smell has returned to normal. She has been stressed since she got out of the hosptual in june. She is stressed becuase she cant get a job, she doesnt have a place to live consistently, she needs to have another surgery. She is staying with her step mom. She was originally living with her sister, but they all smoke. She is going to have a colostomy reversal in the coming months. She is in the process of applying for disability. She has no money or anyway to support her self. Examination Category Sub-Category Detail Notes Category Not [...]
--- OUTSIDE RECORDS SUMMARY | 2024-10-11 10:45 | XMS_ITS ---
Author Organization [facility] Address [address] [facility] [address] [place] [address] Care Team Providers Care Bottle Labeler Name Role Phone Michaelle Rivas Primary Care Provider Champ Quiroz Unavailable [phone] Allergies Allergen (clinical drug ingredient) Drug/Non Drug Allergy documented on EMR Reaction Allergy Type Onset Date Status LATEX GLOVES (uncoded) Unknown Allergy Active acetaminophen / oxycodone Percocet stomach upset, sweating Drug Allergy Active Results Component Value Reference Range Notes X ray : Chest Reviewed date:10/19/2024 08:17:12 AM Interpretation: Performing Lab: Notes/Report: REASON FOR VISIT Coughing, stoma bulging, body aches from coughing Medications Medication SIG (Take, Route, Frequency, Duration) Notes Start Date End Date Status hydrOXYzine HCl 10 MG 1 tab orally every 8 hours; Duration: 30 days prn Active Metoprolol Tartrate 25 MG 1/2 tab Orally Twice a day; Duration: 14 days Active Rosuvastatin Calcium 40 MG 1 tablet Oral ly Once a day; Duration: 30 days Active traZODone HCl 50 MG 1 tablet at bedtime as needed Orally Once a day; Duration: 30 days 07/30/2024 Active Benzonatate 200 MG 1 capsule as needed Orally Three times a day; Duration: 10 days 10/11/2024 Active Citalopram Hydrobromide 40 MG 1 tab(s) orally once a day; Duration: 90 days Active Aspirin 81 81 MG 1 tablet Orally Once a day Active Combivent Respimat 20-100 MCG/ACT INHALE 1 PUFF BY MOUTH 4 TIMES DAILY; Duration: 30 days prn Active Primidone 50 MG 1 tab(s) orally twic e a day; Duration: 90 days Active buPROPion HCl ER (XL) 300 MG 1 tab(s) orally every 24 hours; Duration: 30 days Active Vital Signs Temperature 97.2 degrees Fahrenheit 10/12/19 25 Blood pressure systolic 124 mm Hg 10/12/19 25 Blood pressure diastolic 70 mm Hg 025 Heart Rate 88 /min 10/11/2024 Height 5 ft 1 in in 10/11/2024 Weight 121 lbs 10/11/2024 BMI 22.86 kg/m2 10/11/2024 Encounters Encounter Location Date Provider Diagnosis [facility] [address] [facility] [address] [place] [address] 10/11/2024 Michaelle Rivas Acute cough R05.1 Assessments Encounter Date Diagnosis (ICD Code) Assessment Notes Treatment Notes Treatment Clinical Notes Section Notes 10/11/2024 Acute cough (ICD-10 - R05.1) Reassurance CXR is normal Likely related to exac of her COPD Discussed supportive care with rest, increased hydration, dexamethasoine IM and inhalers Return precautions discussed Plan Of Treatment Medication Medication Name Sig Start Date Stop Date Notes Benzonatate 200 MG 1 capsule as needed Orally Three times a day; Duration: 10 days 10/11/2024 Treatment Notes Assessment Notes Acute cough Reassurance CXR is normal Likely related to exac of her COPD Discussed supportive care with rest, increased hydration, dexamethasoine IM and inhalers Return precautions discussed Next Appt Details Follow Up: prn, Reason: Provider Name:Champ Quiroz, 11/08/2024 11:45:00 AM, [address], [address], Medications Administered Medication Instructions Date of Administration Dosage Notes Dexamethasone 4mg Injection 10/11/2024 4 mg Progress Notes * Rere REESE ADOB: [birth year] (53 yo F)Acc No.[id number]:10/11/2024 Progress Notes Patient: Dayana Rere CASIANO Provider: Chelle Rivas APRN :1970 A ge:53 Y S ex:Female Date:10/11/2024 Address:[address] [place] [address] [id number] Subjective: * Chief Complaints: * 1 . Coughing, stoma bulging, body aches from coughing. * HPI: g en: 53 y/o female with a h/o COPD presents with cough x 4 weeks. Non-productive. No chest congestion or SOA. Cough is causing stoma to bulge. Feels sore all over. No fevers. Tessalon helps. * ROS: C ONSTITUTIONAL: no L oss of appetite. n o F ever. D ERMATOLOGY: no R aimee. G ASTROENTEROLOGY: no N ausea. n o V omiting. * Medical History: H ormone replacement therapy, Depression, Copd, Asthma, Smoker, Tremors, Coronary artery disease, status post CABG May 08 at [facility], Sepsis, bowel ischemia and colostomy April/2024 at [facility], Colitis. * Medications: T aking Aspirin 81 81 MG Tablet Delayed Release [...] 1 tab orally every 8 hours , Notes to Pharmacist: prn, Taking Rosuvastatin Calcium 40 MG Tablet 1 tablet Orally Once a day , Taking Metoprolol Tartrate 25 MG Tablet 1/2 tab Orally Twice a day , Taking traZODone HCl 50 MG Tablet 1 tablet at bedtime as needed Orally Once a day , Taking buPROPion HCl ER (XL) 300 MG Tablet Extended Release 24 Hour 1 tab(s) orally every 24 hours , Discontinued Loratadine 10 MG Tablet 1 tablet Orally Once a day , Discontinued Ondansetron 4 MG Tablet Disintegrating 1 tablet on the tongue and allow to dissolve Orally 3 times a day As needed, Medication List reviewed and reconciled with the patient * Allergies: L ATEX GLOVES, Percocet: stomach upset, sweating - Side Effects. Objective: * Vitals: N urse: nm, Pain: 5, Temp: 97.2, RR: 18, HR: 88, BP: 124/70, Ht: 5 ft 1 in, Wt: 121, BMI:22.86. * Examination: G eneral Examination: General P leasant and Cooperative, NAD on RA,. Chest: n ormal shape and expansion. Heart: R egular Rate and Rhythm, no murmur, rubs or gallops. Lungs: L CTAB, No wheezes, crackles or rhonchi, Good air movement,. Abdomen: S oft, NTND, BSNA, No organomegaly or peritoneal signs.. Psych N ormal Mood/Affect. Assessment: * Assessment: 1. Lois bowman cough - R05.1 (Primary) Plan: * Treatment: * Notes: Reassurance CXR is normal Likely related to exac of her COPD Discussed supportive care with rest, increased hydration, dexamethasoine IM and inhalers Return precautions discussed?? * Therapeutic Injections: Dexamethasone 4mg Injection : 4 mg (Route: Intramuscular) given by MATT Agustin on right deltoid * Procedure Codes: J 1100 Dexamethasone Sodium Phosphate 4mg Injection, 23196 THERAPEUTIC ADMINISTRATION * Follow Up: p rn * * Sign off status: Completed true * Provider: Chelle Rivas APRN Date: 10/11/2024 Generated for Little catalan/Fior/Lataitting on: 11/05/2024 02:04 PM EDT History and Physical Notes * HPI (History of Present Illness) Category Sub-Category Detail Notes Category Not es gen 53 y/o female w ith a h/o COPD presents with cough x 4 weeks. Non-productive. No chest congestion or SOA. Cough is causing stoma to bulge. Feels sore all over. No fevers. Tessalon helps. Examination Category Sub-Category Detail Notes Category Not es General Examination Heart: Regular Rate and Rhythm, no murmur, rubs or gallops Lungs: LCTAB, No wheezes, c rackles or rhonchi, Good air movement, Abdomen: Soft, NTND, BSNA, No organomegaly or peritoneal signs. Chest: normal shape and exp ansion General Pleasant and Coopera tive, NAD on RA, Psych Normal Mood/Affect
--- OUTSIDE RECORDS SUMMARY | 2024-11-01 11:15 | XMS_ITS ---
Author Organization [facility] Address [address] [place] [address] Care Team Providers Care Ssrs Report Developer Name Role Phone Michaelle Rivas Primary Care Provider Champ Quiroz [phone] REASON FOR VISIT 1 month f/u Encounters Encounter Location Date Provider Diagnosis [address] [address] 11/01/2024 Champ Quiroz Plan Of Treatment Next Appt Details Provider Name:Champ Quiroz, 11/08/2024 11:45:00 AM, [address] [place] [address], [address], Progress Notes * Rere REESE ADOB: [birth year] (54 yo F)Acc No.[id number]:11/01/2024 Progress Notes Patient: Dayana Rere CASIANO Provider: Dayana Quiroz MD :1970 A ge:53 Y S ex:Female Date:11/01/2024 Address:[address] [place] [address] [place] Pcp:Michaelle Rivas Subjective: * Chief Complaints: * 1 . 1 month f/u. * Medical History: Objective: * Vitals: Assessment: Plan: * Treatment: * * Electronic signature of Philippe Quiroz MD FAAP on 11/05/2024 at 02:04 PM EDT Sign off status: Pending * Provider: Dayana Quiroz MD Date: 0 11/01/2024 Generated for Little catalan/Fior/Jericho on: 0 11/05/2024 02:04 PM EDT
--- OUTSIDE RECORDS SUMMARY | 2024-11-05 14:04 | XMS_ITS | Encounter Summary ---
Author Organization [facility] Address [address] [place] [id number] Care Team Providers Care Cash Register Mechanic Name Role Phone Champ Quiorz MD Primary Care Provider [phone] Encounter Details Date Type Department Care Team (Late st Contact Info) Description 10/04/2024 Telephone [facility] General Surgery [address], 1st [place] [address] Viri Ibrahim [facility] [address] [place] [id number] Social History Tobacco Use Types Packs/Day Years [...] living in a retirement (including now)? No 09/21/2024 CAGE ASSESSMENT Answer [...] drink first t jaime in the morning (EYE-CARBON PASTE MIXER OPERATOR) to steady your nerves or to [...] Description 11/06/2024 11:00 AM EDT Office Visit [facility] General Surgery [address], 1st [place] [address] Lidia Troncoso MD [address] [place] [address] documented as of this encounter Goals Goal [...] documented as of this encounter Care Teams Cash Register Mechanic Relationship Specialty Start Date End Date Champ Quiroz MD [address] [place] [address] PCP - General Internal Medicine 06/29/24 documented as of this encounter
--- OUTSIDE RECORDS SUMMARY | 2024-11-05 14:04 | XMS_ITS | Clinical Summary ---
Author Organization [facility] Address [address] [place] [address] Care Team Providers Care Chemical Supervisor Name Role Phone Provider, No Known Primary Care Provider [phone] Allergies No known active allergies Medications propranolol [...] 11/03/2019 ZOSTER VACCINE (1 of 2) 11/03/2019 INFLUENZA VACCINE 09/14/2024 Insurance Care Teams Chemical Supervisor Relationship Specialty Start Date End Date Provider, No Known [place] [id number] PCP - General 01/12/16
--- OUTSIDE RECORDS SUMMARY | 2024-11-05 14:04 | XMS_ITS | Encounter Summary ---
Author Organization Healthcare Address [address] [place] [address] Care Team Providers Care Mix Technician Name Role Phone Champ Quiroz MD Primary Care Provider [phone] Encounter Details Date Type Department Care Team (Late st Contact Info) Description 08/22/2024 Results Follow-Up Colorectal Surgery [address] [place] [address] Lidia Troncoso MD [address] [facility] [address] [place] [address] Social History Tobacco Use Types Packs/Day Years [...] drink first t jaime in the morning (EYE-WEAVER TIRE CORD) to steady your nerves or to get [...] Risk Indicated 09/23/2024 7:19 AM EDT Kehinde Andrade, JAMARI * Question Answer Date of Assessment Author 1. Wish to be (Past 1 Month) No 025 7:19 AM EDT Kehinde Andrade, JAMARI 2. Non-Specific Active Suici erica Thoughts (Past 1 Month) No 09/23/2024 7:19 AM EDT Carlyn Andrade RN 6. Suicidal Behavior (Lifetime) No 7:19 AM EDT Kehinde Andrade RN documented as of this encounter Plan of Treatment Upcoming Encounters Date Type Department Care Team (Late st Contact Info) Description 11/06/2024 11:00 AM EDT Office Visit [facility] General Surgery [address], 1st [place] [address] Lidia Troncoso MD [address] [place] [address] documented as of this encounter [...] documented as of this encounter Care Teams Mix Technician Relationship Specialty Start Date End Date Champ Quiroz MD [address] [place] [address] PCP - General Internal Medicine 06/29/24 documented as of this encounter
--- OUTSIDE RECORDS SUMMARY | 2024-11-05 14:04 | XMS_ITS | Encounter Summary ---
Author Organization [facility] Address [address] [place] [address] Care Team Providers Care Chief Dispatcher Service Name Role Phone Champ Quiroz MD Primary Care Provider [phone] Encounter Details Date Type Department Care Team [...] any time in the past 12 m [facility], were you homeless or living in a correction (including now)? No 05/02/2024 AUDIT-C Answer Date [...] drink first t jaime in the morning (EYE-REGULATORY ASSISTANT) to steady your nerves or to get [...] Description 11/06/2024 11:00 AM EDT Office Visit [facility] General Surgery [address], [address]st [place] [address] Lidia Troncoso MD [address] [place] [address] documented as of this encounter [...] as of this encounter Care Teams Chief Dispatcher Service Relationship Specialty Start Date End Date Champ Quiroz MD [address] [place] [address] PCP - General Internal Medicine 06/29/24 documented as of this encounter
--- OUTSIDE RECORDS SUMMARY | 2024-11-05 14:05 | XMS_ITS | Encounter Summary ---
Author Organization Healthcare Address [address] [place] [address] Care Team Providers Care Computer Programming Supervisor Name Role Phone Pcp, No Primary Care Provider Champ Butler MD Primary Care Provider [phone] Encounter Details Date Type Department Care Team (Late st Contact Info) Description 05/14/2024 Lab Requisition [facility] [address] [place] [address] Tom Dyson MD [address] [facility] [address] [place] [address] Encounter for general adult medical examination without [...] [address] [place] [address] Lidia Troncoso MD [address] [place] [address] documented as of this encounter [...] at day 1 05/15/2024 11:17 AM EDT [facility] Swab (Nares and Jacey Rectal) 05/14/2024 8:24 AM EDT 05/14/2024 2:12 PM EDT us Tom Dyson MD LAB MICROBIOLOGY - GEN ERAL ORDERABLES Final Result [facility] [address] [place] [address] documented in this encounter Visit Diagnoses Diagnosis [...] documented as of this encounter Care Teams Computer Programming Supervisor Relationship Specialty Start Date End Date Pcp, Katherine [address] [place] [address] PCP - General Family Medicine 04/04/24 06/28/24 Champ Quiroz MD [address] [facility] [address] [place] [address] PCP - General Internal Medicine 06/29/24 documented as of this encounter
--- OUTSIDE RECORDS SUMMARY | 2024-11-05 14:05 | XMS_ITS | Encounter Summary ---
Author Organization Healthcare Address [address] [place] [address] Care Team Providers Care Broadcast Correspondent Name Role Phone Champ Quiroz MD Primary Care Provider [phone] Encounter Details Date Type Department Care Team (Late st Contact Info) Description 09/17/2024 Orders Only External Location [address] [place] [address] Provider, External Social History Tobacco Use Types [...] living in a longterm (including now)? No 09/21/2024 CAGE ASSESSMENT Answer [...] drink first t jaime in the morning (EYE-OIL DERRICK OPERATOR) to steady your nerves or to [...] Description 11/06/2024 11:00 AM EDT Office Visit [facility] General Surgery [address], [address]st [place] [address] Lidia Troncoso MD [address] [facility] [address] [place] [address] documented as of this encounter [...] documented as of this encounter Care Teams Broadcast Correspondent Relationship Specialty Start Date End Date Champ Quiroz MD [address] [place] [address] PCP - General Internal Medicine 06/29/24 documented as of this encounter
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
--- OUTSIDE RECORDS SUMMARY | 2024-11-05 14:05 | XMS_ITS | Encounter Summary ---
Author Organization Healthcare Address [address] [place] [address] Care Team Providers Care Clinical Project Manager Name Role Phone Pcp, No Primary Care Provider Champ Butler MD Primary Care Provider + [phone] Encounter Details Date Type Department Care Team (Late st Contact Info) Description 05/21/2024 Lab Requisition [facility] [address] [place] [address] Tom Dyson MD [address] [facility] [address] [place] [address] Encounter for general adult medical examination without [...] Description 11/06/2024 11:00 AM EDT Office Visit [facility] General Surgery [address] [place] [address] Lidia Troncoso MD [address] [place] [address] documented as of this encounter [...] at day 1 05/22/2024 8:46 AM EDT [facility] Swab (Nares and Jacey Rectal) 05/21/2024 11:00 AM EDT 05/21/2024 11:55 AM EDT us Tom Dyson MD LAB MICROBIOLOGY - GEN ERAL ORDERABLES Final Result [facility] [address] [place] [address] documented in this encounter Visit Diagnoses Diagnosis [...] documented as of this encounter Care Teams Clinical Project Manager Relationship Specialty Start Date End Date Pcp, Katherine [address] [place] [address] PCP - General Family Medicine 04/04/24 06/28/24 Champ Quiroz MD [address] [place] [address] PCP - General Internal Medicine 06/29/24 documented as of this encounter
--- OUTSIDE RECORDS SUMMARY | 2024-11-05 14:05 | XMS_ITS | Encounter Summary ---
Author Organization Healthcare Address [address] [place] [address] Care Team Providers Care Information Security Risk Analyst Name Role Phone Champ Quiroz MD Primary Care Provider [phone] Encounter Details Date Type Department Care Team (Late st Contact Info) Description 09/17/2024 Orders Only External Location [address] [place] [address] Provider, External Social History Tobacco Use Types [...] in a skilled nursing (including now)? No 09/21/2024 CAGE ASSESSMENT Answer [...] drink first t jaime in the morning (EYE-AUTOMOTIVE ARTIST) to steady your nerves or to get [...] [facility] General Surgery [address], [address] [place] [address] Lidia Troncoso MD [address] [facility] [address] [place] [address] documented as of this encounter [...] documented as of this encounter Care Teams Information Security Risk Analyst Relationship Specialty Start Date End Date Champ Quiroz MD [address] [place] [address] PCP - General Internal Medicine 06/29/24 documented as of this encounter
--- OUTSIDE RECORDS SUMMARY | 2024-11-05 14:06 | XMS_ITS | Encounter Summary ---
Author Organization Healthcare Address [address] [place] [address] Care Team Providers Care Cargo Surveyor Name Role Phone Champ Quiroz MD Primary Care Provider [phone] Reason for Visit * Reason Onset Date Comments HCN Clinical Concern/Question 08/21/2024 HCN Status Update Call #1 08/21/2024 HCN Status Update Call #2 08/21/2024 Encounter Details Date Type Department Care Team (Late st Contact Info) Description 08/21/2024 Telephone [facility] General Surgery [address] [place] [address] Lidia Troncoso MD [address] [facility] [address] [place] [address] HCN Clinical Concern/Question; HCN Status [...] drink first t jaime in the morning (EYE-SHOP AND ALTERATION TAILOR) to steady your nerves or to get rid of a hangover? 0 09/17/2024 CAGE Questionnaire Score 0 025 Utilities Answer Date Recorded In the past 12 months has th e [employer], gas, oil, or water [employer] threatened to shut off services in your [...] of the initial request. Best contact number: [phone] (mobile) Optimal time of day to reach [...] a bm. Please call Best contact number: [phone] (mobile) Optimal time of day to reach [...] CRS has been contacted for consult via [facility]. * Telephone Encounter - Kerry Hutchinson - 08/21/2024 1:40 PM EDT Clinical Concern/Question Reason for Call: Patient says she is in a lot of pain , she says she will like a call back from a nurse she says she is still in [place] , requesting a call [facility] Best contact number: [phone] (mobile) Optimal time of day to reach caller: ANYTIME Additional comments/information from caller: None Note: Please do not reply to this message. Follow-up communication and further actions as a result of this message need to be communicated with the patient directly, if the patient is not active onMyChart. If the patient is active on MyChart, they will receive notification of the communication/outcome via Addepar. documented in this encounter Plan of Treatment Upcoming Encounters Date Type Department Care Team (Late st Contact Info) Description 11/06/2024 11:00 AM EDT Office Visit [facility] General Surgery [address] [place] [address] Lidia Troncoso MD [address] [place] [address] documented as of this encounter Goals Goal [...] documented as of this encounter Care Teams Cargo Surveyor Relationship Specialty Start Date End Date Champ Quiroz MD [address] [place] [address] PCP - General Internal Medicine 06/29/24 documented as of this encounter
--- OUTSIDE RECORDS SUMMARY | 2024-11-05 14:06 | XMS_ITS | Encounter Summary ---
Author Organization Healthcare Address [address] [place] [address] Care Team Providers Care Inventory Control Specialist Name Role Phone Champ Quiroz MD Primary Care Provider [phone] Reason for Visit * Reason Onset Date Comments HCN - Patient Message 08/20/2024 Reschedule due to transportation Encounter Details Date Type Department Care Team (Late st Contact Info) Description 08/20/2024 Telephone [facility] General Surgery [address] [place] [address] Lidia Troncoso MD [address] [place] [address] HCN - Patient Message (Reschedule [...] living in a assisted (including now)? No 09/21/2024 CAGE ASSESSMENT Answer [...] drink first t jaime in the morning (EYE-CHEF GERMAN) to steady your nerves or to get [...] Call: Pt [facility] appt. Pt states she only has transportation tomorrow 08/21 or Thursday 08/24 Best contact number and optimal time of day to reach caller: [phone] Note: Please do not reply to this [...] [facility] General Surgery [address] [place] [address] Lidia Troncoso MD [address] [place] [address] documented as of this encounter [...] documented as of this encounter Care Teams Inventory Control Specialist Relationship Specialty Start Date End Date Champ Quiroz MD [address] [place] [address] PCP - General Internal Medicine 06/29/24 documented as of this encounter
--- OUTSIDE RECORDS SUMMARY | 2024-11-05 14:06 | XMS_ITS | Patient Health Record ---
Author Organization [facility] Address [address] [place] [address] Care Team Providers Care Standards Analyst Name Role Phone Michaelle Rivas Primary Care Provider [phone] Champ Quiroz Unavailable [phone] Migration, Provider Unavailable Unavailable Allergies Allergen (clinical drug ingredient) Drug/Non Drug Allergy documented on EMR Reaction Allergy Type Onset Date Status LATEX GLOVES (uncoded) Unknown Allergy Active acetaminophen / oxycodone Percocet stomach upset, sweating Drug Allergy Active Results Component Value Reference Range Notes X ray : Chest Reviewed date:10/19/2024 08:17:12 AM Interpretation: Performing Lab: Notes/Report: COMPREHENSIVE METABOLIC PANE L (24222) Reviewed date:09/03/2024 09:41:31 AM Interpretation: Performing Lab:CB, [facility] [address], [facility]GhucJZ[address] Wil Bro Notes/Report: NON-FASTING; NON-FASTING GLUCOSE 104 [...] Reviewed date:09/03/2024 09:41:31 AM Interpretation: Performing Lab:MAN, [email or web address], [facility] ClinicDfjrDQ[address] Wil Bro Notes/Report: NON-FASTING; NON-FASTING WHITE BLOOD [...] MPV 10.0 7.5-12.5 fL ABSOLUTE NEUTROPHILS [phone] cells/uL ABSOLUTE LYMPHOCYTES 2503 850-3900 cells/uL ABSOLUTE [...] Status Risk Notes Problem Generalized anxiety disorder (12614449) Generalized anxiety disorder (F41.1) Active confirmed Problem Primary insomnia (3529850) Primary insomnia (F51.01) Active confirmed Problem Psychophysiologic insomnia (904867694) Psychophysiologic insomnia (F51.04) Active confirmed Problem Essential tremor (278270411) Essential tremor (G25.0) Active confirmed Problem Panlobular emphysema (6487490) Panlobular emphysema (J43.1) Active confirmed Problem Left side sciatica (968638258676459) Sciatica, left side (M54.32) Active confirmed Problem Sciatica (58849797) Lumbago with sciatica, right side (M54.41) Active confirmed Problem Sciatica (86774909) Lumbago with sciatica, left side (M54.42) Active confirmed Problem Colostomy present (628373593) Colostomy status (Z93.3) Active confirmed Problem Mixed anxiety and depressive disorder (873641677) Depression with anxiety (F41.8) Active confirmed Problem Anxiety (40327458) Anxiety (F41.9) Active confi rmed Problem Vitamin B12 deficiency (non anemic) (64917477) B12 deficiency (E53.8) Active confirmed Problem Acute exacerbation of chronic obstructive airways disease (257910976) COPD exacerbation (J44.1) Active confirmed Problem Atherosclerosis of coronary artery without angina pectoris (707481977913040) Atherosclerosis of lumbee coronary artery of lumbee heart without angina pectoris (I25.10) Active confirmed Problem Disorder of skin AND/OR subcutaneous tissue (63260331) Skin lesions (L98.9) Active confirmed Vital Signs Heart Rate 88 /min 10/11/2024 Temperature 97.2 degrees Fahrenheit 10/11/2024 Blood pressure diastolic 70 mm Hg 10/11/2024 Height 5 ft 1 in in 10/11/2024 Blood pressure systolic 124 mm Hg 10/11/2024 Weight 121 lbs 10/11/2024 BMI 22.86 kg/m2 10/11/2024 Encounters Encounter Location Date Provider Diagnosis [facility] [address] [address] 05/19/2024 Provider Migration Depression with anxiety F41.8 and COPD exacerbation J44.1 [facility] [address] [address] 12/29/2023 Champ Quiroz Acute bronchitis, unspecified organism J20.9 ; Subacute cough R05.2 and Sciatica, left side M54.32 [facility] [address] [place] [address] 04/20/2024 Michaelle McNees Depression with anxi ety F41.8 and COPD exacerbation J44.1 [facility] [address] [facility] [address] [place] [address] 07/02/2024 Champjenniffer Quiroz Tremor R25.1 ; Atherosclerosis of lumbee coronary artery of lumbee heart without angina pectoris I25.10 ; Anxiety F41.9 ; Hospital discharge follow-up Z09 ; Dysuria R30.0 and Colostomy present Z93.3 [facility] [address] [place], [place] [address] 07/18/2024 Champ Quiroz Pelvic pain in femal e R10.2 and Panlobular emphysema J43.1 [facility] [address] [facility] [address] [place], [place] [address] 07/30/2024 Champ Quiroz C. difficile colitis A04.72 ; Primary insomnia F51.01 ; Colostomy status Z93.3 and Hospital discharge follow-up Z09 [facility] [address] [facility] [address] [place], [place] [address] 08/20/2024 Champ Quiroz Atherosclerosis of lumbee coronary artery of lumbee heart without angina pectoris I25.10 ; Colostomy status Z93.3 and Hospital discharge follow-up Z09 [facility] [address] [facility] [address] [place] [address] 08/30/2024 Michaelle McNees Vertigo R42 ; C. difficile colitis A04.72 and Atherosclerosis of lumbee coronary artery of lumbee heart without angina pectoris I25.10 [facility] [address] [facility] [address] [place] [address] 10/01/2024 Champ Quiroz Generalized anxiety disorder F41.1 ; Atherosclerosis of lumbee coronary artery of lumbee heart without angina pectoris I25.10 ; Colostomy status Z93.3 and Hospital discharge follow-up Z09 [facility] [address] [facility] [address] [place] [address] 10/11/2024 Michaelle McNees Acute cough R05.1 [facility] [address] [place] [address] 11/28/2023 Michaelle McNees [facility] [address] [facility] [address] [place] [address] 02/06/2024 Michaelle McNees [facility] [address] [facility] [address] [place] [address] 04/20/2024 Michaelle McNees [facility] [address] [place] [address] 07/20/2024 Michaelle McNees Hypokalemia E87.6 [facility] [address] [place] [address] 07/20/2024 Michaelle McNees [facility] [address] [place] [address] 07/24/2024 Michaelle McNees [facility] [address] [place] [address] 08/09/2024 Michaelle McNees [facility] [address] [place] [address], [place] [address] 09/03/2024 Michaelle McNees [facility] [address] [place] [address] 09/25/2024 Michaelle McNees Primary insomnia F51 .01 and Enterocolitis K52.9 [facility] [address] [place] [address] 09/25/2024 Champ Zunildason Primary insomnia F51 .01 and Enterocolitis K52.9 [facility] [address] [place] [address] 10/05/2024 Michaelle McNees [facility] [address] [facility] [address] [place] [address] 10/11/2024 Michaelle McNees Assessments Encounter Date Diagnosis (ICD Code) Assessment Notes Treatment Notes Treatment Clinical Notes Section Notes 04/20/2024 Depression with anxiety (ICD-10 - F41.8) [...] be helpful for her 07/02/2024 Atherosclerosis of lumbee coronary artery of lumbee heart without angina pectoris (ICD-10 - I25.10) Status post bypass. On appropriate medication 07/18/2024 Panlobular emphysema (ICD-10 - J43.1) Stable. Off cigarettes, continue inhalers. 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 Possible ongoing problems from catheter but [...] colitis (ICD-10 - A04.72) Extensive review of [facility] and [facility] records Abdomen soft, nontender Continue Vanc Keep Fu with Dr. Troncoso [facility] 09/25/2024 Primary insomnia (ICD-10 - F51.01) 09/25/2024 [...] with the anxiety. We refered her to [facility] and the Medicare office to see if she can get in contact with a therapist and a pediatric social worker. 10/01/2024 Atherosclerosis of lumbee coronary artery of lumbee heart without angina pectoris (ICD-10 - I25.10) Overall stable post bypass. On appropriate medications. 07/30/2024 Primary insomnia (ICD-10 - F51.01) Trazodone [...] clinic/ED. 12/29/2023 Subacute cough (ICD-10 - R05.2) 10/11/2024 Acute cough (ICD-10 - R05.1) Reassurance CXR is normal Likely related to exac of her COPD Discussed supportive care with rest, increased hydration, dexamethasoine IM and inhalers Return precautions discussed 08/20/2024 Colostomy status (ICD-10 - Z93.3) Infection resolved, following up with [facility] 08/20/2024 Atherosclerosis of lumbee coronary artery of lumbee heart without angina pectoris (ICD-10 - I25.10) Overall doing fairly well. No changes in plan. Stable from a vascular standpoint. 08/20/2024 Hospital discharge follow-up (ICD-10 - Z09) Personally reviewed H&P and discharge summary as available from hospital discharge documentation. Reviewed pertinent labs and test done in the hospital. Personally reconciled medication. 12/29/2023 Sciatica, left side (ICD-10 - M54.32) [...] sure that her intestinal status is viable 10/01/2024 Colostomy status (ICD-10 - Z93.3) Hopefully will have reversal soon. Continue to follow with GI. No changes in plan 09/25/2024 Enterocolitis (ICD-10 - K52.9) 09/25/2024 Enterocolitis (ICD-10 - K52.9) 07/02/2024 Anxiety (ICD-10 - F41.9) 08/30/2024 Atherosclerosis of lumbee coronary artery of lumbee heart without angina pectoris (ICD-10 - I25.10) Decrease metoprolol for low normal blood pressure and fatigue Keep FU with [facility] cardiology next week 07/02/2024 Hospital discharge follow-up (ICD-10 - Z09) [...] updated. Her medication list has been reconcilled. 07/30/2024 Hospital discharge follow-up (ICD-10 - Z09) [...] Test Name Order Date BASIC METABOLIC PANEL (76719) 07/23/2024 MAGNESIUM (622) 07/23/2024 Next Appt Details Provider Name:Champ Quiroz, 11/08/2024 11:45:00 AM, [address] [facility] [address], [place], [address], Insurance Providers Payer Name Payer Address Payer Phone Subscriber Number Group Number Insured Name Patient Relationship to Insured Coverage Start Date Coverage End Date [employer] [address] [address] [place] [address] [phone] [id number] Rere Reese Self - patient is [...] CAB G May [address] [facility] Sepsis, bowel ischemia and colostomy Mar at [facility] colitis Surgical History Surgery Date(Month/Year) lt rotator cuff 2020 rt hand surgery 01/2023 colon resection 04/30/24 Hospitalization History Reason Date(Month/Year) 09/2024 [facility]- abd pain 07/2024 Septic 07/24/2024 - heart attach 04/30/2024-06/28/24 [facility] 01/2022
--- OUTSIDE RECORDS SUMMARY | 2024-11-05 14:06 | XMS_ITS | Encounter Summary ---
Author Organization Healthcare Address [address] [place] [address] Care Team Providers Care Cardiology Nurse Practitioner Name Role Phone Champ Quiroz MD Primary Care Provider [phone] Reason for Visit * Reason Onset Date Comments HCN Same Day Appt/Overbook Request 09/12/2024 Encounter Details Date Type Department Care Team (Late st Contact Info) Description 09/12/2024 Telephone [facility] General Surgery [address], [address] [place] [address] Lidia Troncoso MD [address] [place] [address] HCN Same Day Appt/Overbook Request [...] drink first t jaime in the morning (EYE-EMBOSSING TOOLSETTER) to steady your nerves or to get [...] of the initial request. Best contact number: [phone] (home) Optimal time of day to reach [...] get in araceli. Thanks! Best contact number: [phone] (home) Optimal time of day to reach [...] Description 11/06/2024 11:00 AM EDT Office Visit [facility] General Surgery [address] [place] [address] Lidia Troncoso MD [address] [place] [address] documented as of this encounter Goals Goal Patient Goal Type Associated Problems Recent Progress Patient-Stated? Author Patient will verbalize understanding of orthotic wear , care and precautions to protect surgical repair for additional 4 weeks. Occupational Therapy No Ramandeep Jd Van Patient will demonstrate correct performance of HEP to increase IP motion within 1 therapy visit. Occupational Therapy No Jd Saibllon documented as of this encounter Visit Diagnoses [...] documented as of this encounter Care Teams Cardiology Nurse Practitioner Relationship Specialty Start Date End Date Champ Quiroz MD [address] [place] [address] PCP - General Internal Medicine 06/29/24 documented as of this encounter
--- OUTSIDE RECORDS SUMMARY | 2024-11-05 14:06 | XMS_ITS | Clinical Summary ---
Author Organization [facility] Address [address] [place] [address] Care Team Providers Care Technical Report Writer Name Role Phone Champ Quiroz MD Primary Care Provider + [phone] Allergies Active Allergy Reactions Criticality Noted Date [...] 30 tablet 2 5 06/22/19 26 Active aspirin 81 MG chewable tablet Chew 1 tablet daily. 30 tablet 2 5 07/19/19 26 Active traZODone (Desyrel) 50 MG tablet Take [...] if symptoms continue 1 each 5 Active Active Problems Problem Noted Date Diagnosed [...] (05/28/2024): S/p colectomy & end colostomy 05/23 2/ perforation On total parenteral nutrition (TPN) 05/21/2024 [...] Type Department Care Team Description 10/04/[address] [facility] General Surgery [address], [address] [place] [address] Vrii Ibrahim 09/17/2024 10:40 PM EDT - 09/23/2024 12:05 PM EDT Hospital Encounter [facility] A Inpatient [address] [place] [id number] Betty Garcia MD Griffen, Margaret M, MD Enteritis (Primary Dx) Discharge Disposition: Home or Self Care 09/17/2024 Travel 09/17/2024 Orders Only External Location [address] [place] [phone] Provider, External 09/17/2024 Orders Only External Location [address] [place] [address] Provider, External 09/12/[address] [facility] General Surgery [address], [address] [place] [address] Lidia Troncoso MD HCN Same Day Appt/Overbook Request 08/22/2024 Results Follow-Up Colorectal Surgery [address] [place] [phone] Lidia Troncoso MD 08/21/2024 12:18 PM EDT - 08/21/2024 11:59 PM EDT Hospital Encounter [facility] [address] [facility] [facility]nd [place] [address] 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); Right lower quadrant abdominal pain Discharge Disposition: Home or Self Care 08/21/2024 10:00 AM EDT Office Visit 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 General Surgery [address], [address] [place] [phone] Lidia Troncoso MD HCN Clinical Concern/Question; HCN Status Update Call #1; HCN Status Update Call #2 08/21/2024 Travel 08/20/[address] [facility] General Surgery [address], [address] [place] [phone] Lidia Troncoso MD HCN - Patient Message (Reschedule due to transportation ) 08/15/[address] [facility] Cardiothoracic [address], [address] [place] [address] Ana Luisa Simental RN 08/09/2024 Orders Only External Location [address] [place] [address] Millie Ambrose, DO 08/07/2024 Orders Only External Location [address] [place] [address] Provider, External 08/07/[address] 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 General Surgery [address], [address] [place] [address] Lidia Troncoso MD [address] [place] [address] Health Maintenance Due Date Last Done Comments [facility]-HIV Screening 1969 [facility]-Hepatitis C Screening 1970 [facility]-Infant/Child/Adol SDOH Screenings 1970 [facility]-Hepatitis A Vaccines (1 of 2 - Risk 2-dose series) 1988 [facility]-Hepatitis B Vaccines (1 of 3 - 19+ 3-dose series) 1988 [facility]-Pap Smear 1990 [facility]-Cervical Cancer Screening 11/03/1999 [facility]-HPV/Cotest 11/03/1999 [facility]-Pneumococcal Vaccine: 50 + Years (2 of 2 - PPSV23, PCV20, or PCV21) 09/19/2014 07/25/2014 CT Colonography 2014 Colonoscopy 2014 FIT-DNA 2014 FIT 2014 FOBT 2014 Sigmoidoscopy 2014 [facility]-Colorectal Cancer Screening 2014 [facility]-Breast Cancer Screening 11/03/2019 [facility]-Zoster Vaccines (1 of 2) 11/03/2019 [id number] Vaccine (1 - season) 2024 [facility]-Influenza Vaccine (#1) 10/15/202412/08, 11/06/2018, 01/13/2007 [facility]- [...] Jd [employer] Implanted Type Area Direct Of Real Estate Device Identifier Shelf Expiration Date Model / Serial / Lot Pledget Ptfe [place] 4.8mm X 6mm - [id number] Implanted:05/06 by Maite Austin MD at [facility] (Quantity not on file) [employer]-[id number] / / Procedures Procedure Name Priority Date/Time [...] quadrant abdominal pain CT OUTSIDE IMAGES 08/09/2024 7: [address] MSK OUTSIDE IMAGES 08/07/2024 12:27 PM EDT from Last 3 Months Results * (ABNORMAL) CBC W/O Differential (09/23/2024 1:08 AM EDT) Only the most recent of5 resultswithin the time period is included. WBC Count 9.97 3.70 - 10.30 10*3/uL LAB HEMATOLOGY METHOD 09/23/2024 1:21 AM EDT [facility] RBC Count 3.98 3.90 - 5.20 10*6/uL LAB HEMATOLOGY METHOD 09/23/2024 1:21 AM EDT [facility] HGB 11.4 11.2 - 15.7 g/dL LAB HEMATOLOGY METHOD 09/23/2024 1:21 AM EDT [facility] HCT 34.5 34.0 - 45.0 % LAB HEMATOLOGY METHOD 09/23/2024 1:21 AM EDT [facility] Platelet Count 444(H) 155 - 369 10*3/uL LAB HEMATOLOGY METHOD 09/23/2024 1:21 AM EDT [facility] MCV 87 79 - 98 fL LAB HEMATOLOGY METHOD 09/23/2024 1:21 AM EDT [facility] MCH 28.6 26.0 - 32.0 pg LAB HEMATOLOGY METHOD 09/23/2024 1:21 AM EDT [facility] MCHC 33.0 30.7 - 35.5 g/dL LAB HEMATOLOGY METHOD 09/23/2024 1:21 AM EDT [facility] RDW 15.3(H) 11.5 - 14.5 % LAB HEMATOLOGY METHOD 09/23/2024 1:21 AM EDT [facility] MPV 9.2 8.8 - 12.5 fL LAB HEMATOLOGY METHOD 09/23/2024 1:21 AM EDT [facility] nRBC 0.0 <=0.0 per 100 WBCs LAB HEMATOLOGY METHOD 09/23/2024 1:21 AM EDT [facility] Blood Venous blood specimen / Unknown Venipuncture / Unknown 09/23/2024 1:08 AM EDT 09/23/2024 1:11 AM EDT Marysol Mancini MD LAB BLOOD ORDERABLES Final Result Performing Organization Address City/[facility] Co de Phone Number [facility] [address] [place] [address] * (ABNORMAL) Phosphorus, Plasma (09/23/2024 1:08 AM EDT) Only the most recent of6 resultswithin the time period is included. Phosphorus, Plasma 4.7(H) 2.5 - 4.5 mg/dL 09/23/2024 1:45 AM EDT [facility] Blood Venous blood specimen / Unknown Venipuncture / Unknown 09/23/2024 1:08 AM EDT 09/23/2024 1:12 AM EDT Marysol Mancini MD LAB BLOOD ORDERABLES Final Result Performing Organization Address [facility] de Phone Number [facility] [address] [place] [address] * Magnesium, Plasma (09/23/2024 1:08 AM EDT) Only the most recent of6 resultswithin the time period is included. Magnesium, Plasma 2.1 1.9 - 2.4 mg/dL 09/23/2024 1:45 AM EDT [facility] Blood Venous blood specimen / Unknown Venipuncture / Unknown 09/23/2024 1:08 AM EDT 09/23/2024 1:12 AM EDT Marysol Mancini MD LAB BLOOD ORDERABLES Final Result Performing Organization Address City/[facility] Co de Phone Number [facility] [address] [place] [address] * (ABNORMAL) Basic Metabolic Panel, Plasma (09/23/2024 1:08 AM EDT) Only the most recent of6 resultswithin the time period is included. Glucose, Plasma 95 74 - 99 mg/dL 09/23/2024 1:45 AM EDT [facility] BUN, Plasma 5(L) 7 - 21 mg/dL 09/23/2024 1:45 AM EDT [facility] Creatinine, Plasma 0.69 0.60 - 1.10 mg/dL 09/23/2024 1:45 AM EDT [facility] BUN/Creatinine Ratio 7 09/23/2024 1:45 AM EDT [facility] Sodium, Plasma 137 136 - 145 mmol/L 09/23/2024 1:45 AM EDT [facility] Potassium, Plasma 4.3 3.6 - 4.9 mmol/L 09/23/2024 1:45 AM EDT [facility] Chloride, Plasma 103 97 - 107 mmol/L 09/23/2024 1:45 AM EDT [facility] CO2, Plasma 25 22 - 29 mmol/L 09/23/2024 1:45 AM EDT [facility] Anion Gap 9 6 - 16 mmol/L 09/23/2024 1:45 AM EDT [facility] Total Calcium, Plasma 8.3(L) 8.9 - 10.2 mg/dL 09/23/2024 1:45 AM EDT [facility] eGFRcr 103.3 mL/min/1.7 3m*2 09/23/2024 1:45 AM EDT [facility] Comment:Reported eGFRcr in m L/min/1.73m2 is based the CKD-EPI 2020 equation that does not use a race coefficient. Blood Venous blood specimen / Unknown Venipuncture / Unknown 09/23/2024 1:08 AM EDT 09/23/2024 1:12 AM EDT us Marysol Mancini MD LAB BLOOD ORDERABLES Final Result [facility] [address] [place] [address] * (ABNORMAL) POCT glucose meter (09/22/2024 9:43 PM EDT) Only the most recent of26 resultswithin the time period is included. POCT Glucose 101(H) 74 - 99 mg/dL 09/22/2024 9:44 PM EDT [facility] Comment:Accuracy of a glucos e result [...] Comment 09/22/2024 9:44 PM EDT [facility] Tracing Lathe Set Up Operator ID Kelvin Yousif 09/22/2024 9:44 PM EDT [facility] Device ID [id number] 09/22/2024 9:44 PM EDT [facility] Specimen Type POC Capillary 09/22/2024 9:44 PM EDT [facility] Blood Capillary blood specimen / Unknown 09/22/2024 9:43 PM EDT 09/22/2024 9:44 PM EDT Betty Garcia MD LAB POINT OF CARE TEST DOCKED DEVICE UNSOLICITED RESULTS Final Result Performing Organization Address City/State/[facility] de Phone Number [facility] [address] [place] [address] * Multi Drug Resistance Test (09/20/2024 11:00 AM EDT) Only the most recent of2 resultswithin the time period is included. Culture No growth at day 1 09/21/2024 12:22 PM EDT [facility] Swab (Nares and Jacey Rectal) Non-blood Collection / Unknown 09/20/2024 11:00 AM EDT 09/20/2024 11:14 AM EDT Narrative [facility] - 09/21/2024 12:22 PM EDT This test was developed and its performance characteristics determined by the [facility]. Although the media is FDA-approved, it is not FDA-approved for all specimen types submitted. The FDA has determined that such clearance or approval is not necessary. This test is used for surveillance purposes. It should not be regarded as investigational or for research. The [facility] is certified under the Clinical Laboratory Improvement Amendments of 1988 (CLIA-88) as qualified to perform high complexity clinical laboratory testing. us Tere Snow MD LAB MICROBIOLOGY - GENERAL ORDERABLES Final Result Performing Organization Address City/[facility]/ZIP Co de Phone Number [facility] [address] [place] [address] * Potassium level repeated 2 hours after the total replacement is complete (09/20/2024 9:54 AM EDT) Potassium, Plasma 4.7 3.6 - 4.9 mmol/L 09/20/2024 10:43 AM EDT [facility] Comment:Hemolyzed, result ma y be falsely increased. Blood Venous blood specimen / Unknown Venipuncture / Unknown 09/20/2024 9:54 AM EDT 09/20/2024 9:59 AM EDT Tere Snow MD LAB BLOOD ORDERABLES Final Result Performing Organization Address [facility] Co de Phone Number [facility] [address] [place] [address] * Simi auris Surveillance by PCR (09/20/2024 1:33 AM EDT) [facility] Simi auris PCR Result Not Detected Not Detected 09/20/2024 12:58 PM EDT [facility] Swab (Axilla and Groin) Non-blood Collection / Unknown 09/20/2024 1:33 AM EDT 09/20/2024 3:41 AM EDT Narrative [facility] - 09/20/2024 12:58 PM EDT This PCR assay was developed and its performance characteristics determined by [facility] as appropriate for clinical purposes. This assay has not been cleared or approved by the FDA, but is performed in a CLIA regulated laboratory that is qualified to perform high-complexity testing. Tere Snow MD LAB MICROBIOLOGY - GENERAL ORDERABLES Final Result Performing Organization Address [facility]/ZIP Co de Phone Number [facility] [address] [place] [address] * (ABNORMAL) Albumin (09/20/2024 1:33 AM EDT) Pathologist [facility] Albumin, Plasma 2.6(L) 3.5 - 5.2 g/dL 09/20/2024 7:05 AM EDT [facility] Blood Venous blood specimen / Unknown Venipuncture / Unknown 09/20/2024 1:33 AM EDT 09/20/2024 2:37 AM EDT us Tere Snow MD LAB BLOOD ORDERABLES Final Result Performing Organization Address [facility] Co de Phone Number [facility] [address] [place] [address] * Urine Francis Panel (09/19/2024 8:30 PM EDT) Extra Reflex urine culture not indicated 09/20/2024 5:01 AM EDT [facility] Comment: Previously prelim verified [...] URINE ORDERABLES Final Result Performing Organization Address [facility]/ZIP Co de Phone Number [facility] [address] [place] [address] * PERIPHERAL IV (SMARTFORM LINK) (09/18/2024 6:33 PM EDT) Narrative Cristel Encinas, RN - 09/18/2024 6:33 PM EDT Cristel Encinas, RN 09/18/2024 6:38 PM Insert peripheral IV Performed by: Cristel Encinas RN Authorized by: Tere Snow MD [place] Protocol: Verbal consent obtained?: Yes Risks and [...] understanding.3CG and/or vein images sent to PACS. us Tere Snow MD IV THERAPY ORDERABLES Namrata [...] ORDERA BLES Final Result BLOOD BANK [address] [place] [address], * (ABNORMAL) Comprehensive metabolic panel (09/18/2024 6:06 PM EDT) [facility] Glucose, Plasma 90 74 - 99 mg/dL 09/18/2024 10:34 PM EDT [facility] BUN, Plasma 5(L) 7 - 21 mg/dL 09/18/2024 10:34 PM EDT [facility] Creatinine, Plasma 0.73 0.60 - 1.10 mg/dL 09/18/2024 10:34 PM EDT [facility] BUN/Creatinine Ratio 7 09/18/2024 10:34 PM EDT [facility] Sodium, Plasma 140 136 - 145 mmol/L 09/18/2024 10:34 PM EDT [facility] Potassium, Plasma 3.6 3.6 - 4.9 mmol/L 09/18/2024 10:34 PM EDT [facility] Chloride, Plasma 105 97 - 107 mmol/L 09/18/2024 10:34 PM EDT [facility] CO2, Plasma 25 22 - 29 mmol/L 09/18/2024 10:34 PM EDT [facility] Anion Gap 10 6 - 16 mmol/L 09/18/2024 10:34 PM EDT [facility] Total Calcium, Plasma 8.0(L) 8.9 - 10.2 mg/dL 09/18/2024 10:34 PM EDT [facility] Total Protein 5.0(L) 6.3 - 7.9 g/dL 09/18/2024 10:34 PM EDT [facility] Albumin, Plasma 2.6(L) 3.5 - 5.2 g/dL 09/18/2024 10:34 PM EDT [facility] AST, Plasma 146(H) 10 - 35 U/L 09/18/2024 10:34 PM EDT [facility] ALT, Plasma 86(H) 10 - 35 U/L 09/18/2024 10:34 PM EDT [facility] Alkaline Phosphatase, Plasma 188(H) 35 - 104 U/L 09/18/2024 10:34 PM EDT [facility] Total Bilirubin, Plasma 0.2 0.2 - 1.1 mg/dL 09/18/2024 10:34 PM EDT [facility] eGFRcr 97.9 mL/min/1.7 3m*2 09/18/2024 10:34 PM EDT [facility] Comment:Reported eGFRcr in m L/min/1.73m2 is based the CKD-EPI 2020 equation that does not use a race coefficient. Blood Venous blood specimen / Unknown Venipuncture / Unknown 09/18/2024 6:06 PM EDT 09/18/2024 7:08 PM EDT us Betty Garcia MD LAB BLOOD ORDERABLES Final Result Performing Organization Address City/[facility]/ZIP Co de Phone Number [facility] [address] [place] [address] * Lactate, venous (09/18/2024 11:16 AM EDT) Lactate, Venous, Whole Blood 1.0 0.5 - 2.2 mmol/L LAB HEMATOLOGY METHOD 09/18/2024 11:30 AM EDT [facility] Blood Venous blood specimen / Unknown Venipuncture / Unknown 09/18/2024 11:16 AM EDT 09/18/2024 11:27 AM EDT us Tere Snow MD LAB BLOOD ORDERABLES Final Result Performing Organization Address City/[facility]/ZIP Co de Phone Number [facility] [address] [place] [address] * (ABNORMAL) CBC and differential (09/18/2024 11:16 AM EDT) WBC Count 6.49 3.70 - 10.30 10*3/uL LAB HEMATOLOGY METHOD 09/18/2024 12:38 PM EDT [facility] RBC Count 3.47(L) 3.90 - 5.20 10*6/uL LAB HEMATOLOGY METHOD 09/18/2024 12:38 PM EDT [facility] HGB 9.8(L) 11.2 - 15.7 g/dL LAB HEMATOLOGY METHOD 09/18/2024 12:38 PM EDT [facility] HCT 30.8(L) 34.0 - 45.0 % LAB HEMATOLOGY METHOD 09/18/2024 12:38 PM EDT [facility] Platelet Count 451(H) 155 - 369 10*3/uL LAB HEMATOLOGY METHOD 09/18/2024 12:38 PM EDT [facility] MCV 89 79 - 98 fL LAB HEMATOLOGY METHOD 09/18/2024 12:38 PM EDT [facility] MCH 28.2 26.0 - 32.0 pg LAB HEMATOLOGY METHOD 09/18/2024 12:38 PM EDT [facility] MCHC 31.8 30.7 - 35.5 g/dL LAB HEMATOLOGY METHOD 09/18/2024 12:38 PM EDT [facility] RDW 14.9(H) 11.5 - 14.5 % LAB HEMATOLOGY METHOD 09/18/2024 12:38 PM EDT [facility] MPV 9.6 8.8 - 12.5 fL LAB HEMATOLOGY METHOD 09/18/2024 12:38 PM EDT [facility] nRBC 0.0 <=0.0 per 100 WBCs LAB HEMATOLOGY METHOD 09/18/2024 12:38 PM EDT [facility] Differential Type Automated LAB HEMATOLOGY METHOD 09/18/2024 12:38 PM EDT [facility] Neutrophils % 45 % LAB HEMATOLOGY METHOD 09/18/2024 12:38 PM EDT [facility] Lymphocytes % 41 % LAB HEMATOLOGY METHOD 09/18/2024 12:38 PM EDT [facility] Monocytes % 9 % LAB HEMATOLOGY METHOD 09/18/2024 12:38 PM EDT [facility] Eosinophils % 4 % LAB HEMATOLOGY METHOD 09/18/2024 12:38 PM EDT [facility] Basophils % 1 % LAB HEMATOLOGY METHOD 09/18/2024 12:38 PM EDT [facility] Immature Granulocytes % 0 % LAB HEMATOLOGY METHOD 09/18/2024 12:38 PM EDT [facility] Neutrophils Absolute 2.85 1.60 - 6.10 10*3/uL LAB HEMATOLOGY METHOD 09/18/2024 12:38 PM EDT [facility] Lymphocytes Absolute 2.67 1.20 - 3.90 10*3/uL LAB HEMATOLOGY METHOD 09/18/2024 12:38 PM EDT [facility] Monocytes Absolute 0.61 0.30 - 0.90 10*3/uL LAB HEMATOLOGY METHOD 09/18/2024 12:38 PM EDT [facility] Eosinophils Absolute 0.26 0.00 - 0.50 10*3/uL LAB HEMATOLOGY METHOD 09/18/2024 12:38 PM EDT [facility] Basophils Absolute 0.08 0.00 - 0.10 10*3/uL LAB HEMATOLOGY METHOD 09/18/2024 12:38 PM EDT [facility] Immature Granulocytes Absolute 0.02 0.00 - 0.06 10*3/uL LAB HEMATOLOGY METHOD 09/18/2024 12:38 PM EDT [facility] Blood Venous blood specimen / Unknown Venipuncture / Unknown 09/18/2024 11:16 AM EDT 09/18/2024 12:01 PM EDT Narrative [facility] - 09/18/2024 12:38 PM EDT Therapeutic decision making should be based on absolute values, rather than percentages. us Betty Garcia MD LAB BLOOD ORDERABLES Final Result [facility] [address] [place] [address] * ECG Adult (09/18/2024 9:16 AM EDT) Only the most recent of2 resultswithin the time period is included. EKG DIAGNOSIS CLASS Abnormal MUSE ECG Ventricular Rate 78 BPM MUSE ECG Atrial Rate 78 BPM MUSE ECG HI Interval 138 ms MUSE ECG QRSD Interval 96 ms MUSE ECG QT Interval 446 ms MUSE ECG QTC Interval 508 ms MUSE ECG P [place] 79 degrees MUSE ECG R [place] 59 degrees MUSE ECG T Wave [place] 68 degrees MUSE ECG Diagnosis Normal sinus [...] Detected Not Detected 09/18/2024 7:51 AM EDT [facility] Plesiomonas shigelloides PCR Result Not Detected Not Detected 09/18/2024 7:51 AM EDT [facility] Salmonella PCR Result Not Detected Not Detected 09/18/2024 7:51 AM EDT [facility] Vibrio species PCR Result Not Detected Not Detected 09/18/2024 7:51 AM EDT [facility] Vibrio cholerae PCR Result Not Detected Not Detected 09/18/2024 7:51 AM EDT [facility] Yersinia enterocolitica PCR Result Not Detected Not Detected 09/18/2024 7:51 AM EDT [facility] Enteroaggregative E. coli (EAEC) PCR Result Not Detected Not Detected 09/18/2024 7:51 AM EDT [facility] Enteropathogenic E. coli (EPEC) PCR Result Not Detected Not Detected 09/18/2024 7:51 AM EDT [facility] Enterotoxigenic E. coli (ETEC) lt/st PCR Result Not Detected Not Detected 09/18/2024 7:51 AM EDT [facility] Shiga-like Toxin-Producing E.coli (STEC) stx1/stx2 PCR Resu Not Detected Not Detected 09/18/2024 7:51 AM EDT [facility] E coli 0157 PCR Result Not Detected Not Detected 09/18/2024 7:51 AM EDT [facility] Shigella/Enteroinvas alexsandra E. coli (EIEC) PCR Result Not Detected Not Detected 09/18/2024 7:51 AM EDT [facility] Cryptosporidium PCR Result Not Detected Not Detected 09/18/2024 7:51 AM EDT [facility] Cyclospora cayetanensis PCR Result Not Detected Not Detected 09/18/2024 7:51 AM EDT [facility] Entamoeba histolytica PCR Result Not Detected Not Detected 09/18/2024 7:51 AM EDT [facility] Giardia duodenalis (aka Giardia lamblia) PCR Result Not Detected Not Detected 09/18/2024 7:51 AM EDT [facility] Adenovirus F 40/41 PCR Result Not Detected Not Detected 09/18/2024 7:51 AM EDT [facility] Astrovirus PCR Result Not Detected Not Detected 09/18/2024 7:51 AM EDT [facility] Norovirus GI/GII PCR Result Not Detected Not Detected 09/18/2024 7:51 AM EDT [facility] Rotavirus A PCR Result Not Detected Not Detected 09/18/2024 7:51 AM EDT [facility] Sapovirus PCR Result Not Detected Not Detected 09/18/2024 7:51 AM EDT [facility] Stool Rectum structure / Unknown Non-blood Collection / Unknown 09/18/2024 2:18 AM EDT 09/18/2024 3:01 AM EDT Narrative [facility] - 09/18/2024 7:51 AM [...] LAB MICROBIOLOGY - GENERAL ORDERABLES Final Result [facility] [address] [place] [address] * (ABNORMAL) Clostridiodes (Clostridium) difficile PCR (09/18/2024 2:18 AM EDT) C difficile PCR toxin B gene DNA Result Detected, Reflex GDH/Toxin antigen test pending, see CDEIA for final result.(A) Not Detected 09/18/2024 4:41 AM EDT [facility] Comment:Reflex GDH/Toxin ant igen test pending, see CDEIA for final result. Stool Rectum structure / Unknown Non-blood Collection / Unknown 09/18/2024 2:18 AM EDT 09/18/2024 3:01 AM EDT Narrative [facility] - 09/18/2024 4:41 AM [...] GENERAL ORDERABLES Final Result Performing Organization Address [facility] Co de Phone Number [facility] [address] [place] [address] * Clostridium difficile EIA (09/18/2024 2:18 AM EDT) C difficile EIA Interpretation C. difficile infection not likely. May represent colonization . 09/18/2024 7:51 AM EDT [facility] Toxin Result Negative Negative 09/18/2024 7:51 AM EDT [facility] GDH Result Positive Negative 09/18/2024 7:51 AM EDT [facility] Stool Rectum structure / Unknown Non-blood Collection / Unknown 09/18/2024 2:18 AM EDT 09/18/2024 3:01 AM EDT Narrative [facility] - 09/18/2024 7:51 AM EDT This toxin/GDH assay was reflexed from a positive C. difficile PCR result. Betty Garcia MD LAB MICROBIOLOGY - GENERAL ORDERABLES Final Result Performing Organization Address [facility] Co de Phone Number [facility] [address] [place] [address] * CT MSK OUTSIDE IMAGES (09/17/2024 6:09 [...] Ambrose DO IMG CT PROCEDURES Final Result from Last 3 Months Additional Health Concerns Infection Onset Date Last Indicated C. difficile 09/18/2024 09/18/2024 Insurance Advance Directives * Full Code (Latest Code [...] 12:06 PM 05/06/2024 8:27 PM Care Teams Technical Report Writer Relationship Specialty Start Date End Date Champ Quiroz MD [address] [place] [address] PCP - General Internal Medicine 06/29/24
--- OUTSIDE RECORDS SUMMARY | 2024-11-05 14:06 | XMS_ITS | Encounter Summary ---
Author Organization Healthcare Address [address] [place] [address] Care Team Providers Care Supplier Engineer Name Role Phone Champ Quiroz MD Primary Care Provider [phone] Encounter Details Date Type Department Care Team (Late st Contact Info) Description 07/21/2024 Orders Only External Location [address] [place] [address] Sundeep Fisher MD [address] [place] [address] Social History Tobacco Use Types Packs/Day [...] the past 12 months has th e [employer], gas, oil, or water company threatened [...] Description 11/06/2024 11:00 AM EDT Office Visit [facility] General Surgery [address] [place] [id number] Lidia Troncoso MD [address] [place] [phone] documented as of this encounter Goals Goal [...] documented as of this encounter Care Teams Supplier Engineer Relationship Specialty Start Date End Date Champ Quiroz MD [address] [place] [address] PCP - General Internal Medicine 06/29/24 documented as of this encounter
--- NOTE | 2024-11-05 14:30 | CA_ITS ---
APPROVED REPORT EXAM: Comprehensive 2D, Doppler, and color-flow Echocardiogram Administrative Office Manager: Leighann Guevara RT(R) Ht: 5 ft 0 in Wt: 116lbs BSA: 1.48 BP: 103/69 mmHg Indications: hx CABG 04/2024, ex smoker 2D Dimensions LA Volume 20.20 mL LA Volume Index 13.65 mL/m2 (M/F) 16-34 EF AP4 58.60 % GL Strain -20.4 % M-Mode Dimensions RVDd 2.46 cm (0.9-2.6) LA Diam 3.34 cm (1.9-4.0) LVDd 5.11 cm (3.5-5.7) LVDs 3.86 cm (3.5-5.7) IVSd 0.54 cm (0.6-1.1) PWd 0.54 cm (0.6-1.1) EF (Teich) 48.30% FS 24.50% EDV (Teich) 124.40 mL ESV (Teich) 64.30 mL LV Diastology E Decel Time 157 (160-240 msec) E/A Ratio 2.0 Mitral Valve MV E Max Bravo. 116.0 (40-130 cm/s) MV A Velocity 57.0 (40-130 cm/s) E/A Ratio 2.05 MV PHT 46.0 ms Tricuspid Valve TR P. Velocity 251.00 cm/s Left Ventricle The left ventricle is normal size. Left ventricular systolic function is normal. The left ventricular ejection fraction is within the normal range. There is normal left ventricular wall thickness. There is normal LV segmental wall motion. The left ventricular diastolic function is normal. LVEF is 55% Right Ventricle The right ventricle is mildly dilated. The right ventricular systolic function is normal. Atria The left atrium is mildly dilated. The right atrium size is normal. There is no color Doppler evidence of interatrial shunt. Aortic Valve The aortic valve is mildly thickened. There is no hemodynamically significant aortic valvular stenosis. No aortic regurgitation is present. Mitral Valve The mitral valve is normal in structure. No evidence of mitral valve stenosis. Mild mitral regurgitation is present. Tricuspid Valve The tricuspid valve leaflets are thin and pliable. Mild tricuspid regurgitation. RVSP is 20-25 mmHg. Pulmonic Valve The pulmonary valve is grossly normal in structure. Trace pulmonic valve regurgitation is present. Great Vessels The aortic root is normal in size. IVC is normal in size and collapses >50% with inspiration. Pericardium There is no pericardial effusion. Other Information Study Quality: Fair Conclusion Normal biventricular systolic function. Mild RV dilation. Mild LA dilation. Mild MR, mild TR. Electronically signed by : Annette Saldana MD 11/05/2024 15:13:31
== END 2024-11-05 23:59 | disposition home or self-care (01) ==
LOC: RT 14:02
PROVIDERS: PCP Internal Medicine Adolescent Medicine; Visit Provider Nurse Practitioner
DX: I08.1 Rheumatic disorders of both mitral and tricuspid valves (principal); I25.10 Atherosclerotic heart disease of native coronary artery without angina pectoris; Z95.1 Presence of aortocoronary bypass graft; Z87.891 Personal history of nicotine dependence
CPT/HCPCS: 93306

== ENCOUNTER 2024-11-21 12:32 | Outpatient (CLI) | payer MEDICAID, SELFPAY ==
[2024-11-21 12:47] LABS: Adenovirus F 40/41, stool Not Detected (NotDetected); Cyclospora Cayetanesis Not Detected (NotDetected); Plesimonas Shigalloides, PCR Not Detected (NotDetected); Salmonella, PCR Not Detected (NotDetected); Shiga-like toxin E coli Not Detected (NotDetected); Shigella Enterovasive E coli Not Detected (NotDetected); Vibrio, PCR Not Detected (NotDetected); Yersinia Entercolitica, PCR Not Detected (NotDetected)
[2024-11-21 13:01] LABS: Hematocrit 35.7 % (37.0-47.0); Hemoglobin 11.5 g/dL (12.2-16.2); Immature Granulocytes % 0.4 %; Mean Corpuscular HGB Conc 32.2 g/dL (31.8-35.4); Mean Corpuscular Hemoglobin 28.6 pg (27.0-31.2); Mean Corpuscular Volume 88.8 fl (81-99); Nucleated Red Blood Cells % 0 %; Platelet Count 428 K/mm3 (142-424); Red Blood Count 4.02 M/mm3 (4.20-5.40); Red Cell Distribution Width-SD 47.2 fL; White Blood Count 11.3 K/mm3 (4.8-10.8)
[2024-11-21 13:58] LABS: Alanine Aminotransferase 16 U/L (12-78); Albumin Level 3.7 g/dl (3.5-5.0); Albumin/Globulin Ratio 1.5 (1.1-1.8); Alkaline Phosphatase 106 U/L (38-126); Anion Gap 13.8 mEq/L (5-15); Aspartate Amino Transferase 23 U/L (14-36); Bilirubin,Total 0.5 mg/dl (0.2-1.3); Blood Urea Nitrogen 10 mg/dl (7-17); Calcium 8.8 mg/dl (8.4-10.2); Carbon Dioxide 29 mmol/L (22.0-30.0); Chloride 99 mmol/L (98-107); Creatinine,Serum 0.80 mg/dl (0.52-1.04); Estimated Glomerular Filt Rate 74 ml/min (>60); GFR (African American) 90 ML/MIN (>60); Globulin 2.4 g/dL (1.3-3.2); Glucose 51 mg/dl (74-100); Potassium 3.8 mmoL/L (3.5-5.1); Sodium 138 mmol/L (136-145); Total Protein,Serum 6.1 g/dl (6.3-8.2)
[2024-11-21 17:32] LABS: Clostridium Difficile A/B, PCR Detected (NotDetected)
== END 2024-11-21 23:59 | disposition home or self-care (01) ==
LOC: LAB 12:33
PROVIDERS: PCP Internal Medicine Adolescent Medicine; Visit Provider Nurse Practitioner Family
DX: R19.7 Diarrhea, unspecified (principal); R10.9 Unspecified abdominal pain
CPT/HCPCS: 36415; 80053; 85025; 87507

== ENCOUNTER 2024-11-23 21:24 | Observation (INO) | payer MEDICAID, SELFPAY ==
[2024-11-23] VITALS (11 sets, daily range): BP systolic 128–169; BP diastolic 69–92; PULSE 71–89; RESP 11–24; TEMP 36.6; O2SAT 97–99; BMI 23.4
--- NOTE | 2024-11-23 21:23 | ECG_ITS ---
APPROVED REPORT Exam: Resting ECG HR:89 bpm ECG Measurements Heart Rate 89 AXES DC 120 P 44 QRSd 86 QRS 54 QT 326 T 152 QTc 373 Conclusion sinus rhythm Normal axis Normal intervals No STEMI T wave inversion in lead V2 Electronically signed by : Maninder De La Torre, 11/24/2024 01:35:16
--- NOTE | 2024-11-23 21:28 | [facility].EDCP ---
Discharge Plan Disposition Patient Disposition: Admitted Condition: Good Clinical Impressions Clinical Impression: Unstable angina, Acute hypokalemia Discharge ED Provider: Maninder De La Torre HPI General Chief Complaint: Chest Pain Stated Complaint: Chest Pain Time Seen by Provider: 11/23/24 21:28 History of Present Illness HPI narrative: This is a 54-year-old female patient, with past medical history of hypertension, hyperlipidemia, and coronary artery disease, who is presenting to the emergency department today for evaluation of chest pain. Patient actually presented to our hospital back in April of this year and was diagnosed with an NSTEMI and admitted to the hospital. She underwent a heart cath with Dr. Bentley and had severe critical left ascending coronary artery disease that was nonactionable so she was transferred out to [facility] for further intervention. 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 She states that she is now stabilized on 81 mg of aspirin daily. Over the last 2 to 3 days she has had chest pain described as burning in the left chest. This evening approximate 1 hour prior to arrival she developed significantly worsening chest pain with radiation into the left upper extremity which is a sensation that she has not experienced in the past. Therefore she called EMS and was brought here for further evaluation. At the onset of her pain she was performing light activity in her house. She did not develop diaphoresis or nausea. Related Data Home Medications ?Medication ?Instructions ?Recorded ?Confirmed citalopram 40 mg tablet 40 mg PO DAILY 12/23/23 11/24/24 primidone 50 mg tablet 50 mg PO BID 12/23/23 11/24/24 bupropion HCl 300 mg 24 hr tablet, 300 mg PO DAILY 05/01/24 11/24/24 extended release hydroxyzine HCl 10 mg tablet 10 mg PO Q8HP PRN Anxiety 05/01/24 11/24/24 aspirin 81 mg chewable tablet 81 mg PO DAILY 07/21/24 11/24/24 rosuvastatin 40 mg tablet 40 mg PO HS 07/21/24 11/24/24 trazodone 50 mg tablet 50 mg PO HSP PRN Insomnia 08/07/24 11/24/24 Previous Rx's ?Medication ?Instructions ?Recorded ondansetron 4 mg disintegrating 4 mg PO Q8H PRN nausea and 08/09/24 tablet vomiting 4 days #12 tabs metoprolol tartrate 25 mg tablet 12.5 mg (1/2 x 25 mg) PO BID #30 09/04/24 tabs Allergies Allergy/AdvReac Type Severity Reaction Status Date / Time No Known Allergies Allergy Verified 11/12/24 15:14 [facility] Disclaimer: The information contained in this section may have been updated after the patient was seen, as this information can be updated by other users. Medical History (Updated 11/24/24 @ 00:26 by Maninder De La Torre DO) Bleeding nose Dyspnea Cough Colostomy in place Heart attack Depression Anxiety History of pleurisy Hemorrhoid Essential tremor Endometriosis Surgical History History of hand surgery History of Hx of cholecystectomy H/O rotator cuff surgery History of hysterectomy Family History Other Essential tremor Family history of heart disease Social History Smoking Status: Never smoker alcohol intake: never substance use type: denies use current occupational status: unemployed and retired Travel in the last 8 weeks?: Inside the [place] household members: family housing: house caffeine: Yes Have you lived/traveled outside [place] in past 30 days?: No Contact w/someone who lives/traveled outside [place] past 30 days?: No Exposure to someone with infectious disease in past 14 days?: No Do you have a fever (greater than 100.4 F or 38 C)?: No Have you tested positive for COVID-19?: No Exposed to someone with COVID-19 in past 14 days?: No Do you have a sore throat?: No Do you have a cough?: No Do you have any weakness?: No Do you have any diarrhea?: No Are you experiencing any unusual bleeding?: No Do you have any muscle aches/pain?: No Do you have any abdominal pain?: No Are you experiencing loss of taste or smell?: No Other Medical History Have you received the Flu Vaccine for this season: No Have you received the Pneumonia Vaccine: No ROS Obtained: Yes Systems reviewed as appropriate & no additional complaints except as documented Physical Exam General General appearance: other (See MDM) Respiratory Respiratory exam: Present other (See MDM) Cardiovascular Cardiovascular exam: Present other (See MDM) Neurological Exam Neurological exam: Present other (See MDM) HEART Score HEART Score HEART Score assessment performed?: Yes History (anamnesis): Highly suspicious ECG: Non-specific disturbance Age: 45-65 years Risk factors: Atherosclerosis history Troponin: </= normal limit HEART Score: 6 Critical Care Critical Care Time Critical Care Time: No Medical Decision Making Medical Records Medical records reviewed: Yes I reviewed the patient's medical records. Supa Inquiry Pt receiving controlled substance: No Supa was queried for this patient: No Vital Signs Vital Signs: 11/23/24 21:22 11/23/24 21:33 11/23/24 21:45 Temperature 98 F Temperature Source Oral Pulse Rate 89 82 Pulse Rate [Radial] 89 Respiratory Rate 16 13 Blood Pressure 128/83 Blood Pressure [Right Arm] 142/90 H Blood Pressure Mean 96 Blood Pressure Mean [Right Arm] 107 02 Sat by Pulse Oximetry 99 98 Oxygen Delivery Method Room Air 11/23/24 22:00 11/23/24 22:15 11/23/24 22:31 Temperature Temperature Source Pulse Rate 82 71 78 Pulse Rate [Radial] Respiratory Rate 13 13 18 Blood Pressure 150/84 H 131/69 169/84 H Blood Pressure [Right Arm] Blood Pressure Mean 106 89 Blood Pressure Mean [Right Arm] 02 Sat by Pulse Oximetry 98 98 98 Oxygen Delivery Method Room Air 11/23/24 22:45 11/23/24 23:00 11/23/24 23:15 Temperature Temperature Source Pulse Rate 77 75 74 Pulse Rate [Radial] Respiratory Rate 23 12 16 Blood Pressure 143/92 H 157/87 H 159/89 H Blood Pressure [Right Arm] Blood Pressure Mean Blood Pressure Mean [Right Arm] 02 Sat by Pulse Oximetry 98 97 98 Oxygen Delivery Method Room Air Room Air 11/23/24 23:30 11/23/24 23:45 Temperature Temperature Source Pulse Rate 75 76 Pulse Rate [Radial] Respiratory Rate 24 11 L Blood Pressure 160/92 H 158/88 H Blood Pressure [Right Arm] Blood Pressure Mean Blood Pressure Mean [Right Arm] 02 Sat by Pulse Oximetry 98 99 Oxygen Delivery Method Room Air Room Air Lab Data Labs: Lab Results 11/23/24 21:30: WBC 17.2 H D, RBC 3.60 L, Hgb 10.6 L, Hct 31.8 L, MCV 88.3, MCH 29.4, MCHC 33.3, RDW 14.4, Plt Count 441 H, MPV 10.0, Neut % (Auto) 69.9, Lymph % (Auto) 21.4, Kinney % (Auto) 7.9, Eos % (Auto) 0.0 L, Baso % (Auto) 0.3, Neut # (Auto) 12.0 H, Lymph # (Auto) 3.7, Kinney # (Auto) 1.4 H, Eos # (Auto) 0.0, Baso # (Auto) 0.1, Sodium 139, Potassium 3.4 L, Chloride 103, Carbon Dioxide 25, Anion Gap 14.4, BUN 8, Creatinine 0.80, Estimated Creat Clear 71, Estimated GFR 74, Est GFR ( Amer) 90, Glucose 155 H, Calcium 8.7, Total Bilirubin 0.4, AST 29 D, ALT 16, Alkaline Phosphatase 103, Troponin I < 0.01, Total Protein 6.6, Albumin 4.0, Globulin 2.6, Albumin/Globulin Ratio 1.5 11/23/24 21:30 11/23/24 21:30 Response Orders (Tests/Meds): ED MEDICATIONS Generic Name Dose Route Start Last Admin Trade Name Freq PRN Reason Stop Dose Admin Nitroglycerin 0.4 mg 11/23/24 21:32 Nitroglycerin 0.4mg Sl Tablet SL 11/24/24 21:32 [id number] PRN Chest Pain Discontinued Medications Generic Name Dose Route Start Last Admin Trade Name Freq PRN Reason Stop Dose Admin Acetaminophen 1,000 mg 11/23/24 23:08 11/23/24 23:10 Acetaminophen 500mg Tab PO 11/23/24 23:09 1,000 mg ONCE ONE Administration Belladonna Alkaloids 60 ml 11/24/24 00:03 11/24/24 00:15 Belladonna Alkaloids 60 Ml Ml PO 11/24/24 00:04 60 ml ONCE ONE Administration Diazepam 2.5 mg 11/23/24 22:09 11/23/24 22:30 Diazepam 10mg/2ml Syringe IV 11/23/24 22:10 2.5 mg ONCE ONE Administration Iopamidol 80 ml 11/23/24 22:24 11/23/24 22:25 Iopamidol-370 (76%);100ml Bottle IV 11/23/24 22:25 80 ml ONCE ONE Administration Morphine Sulfate 4 mg 11/23/24 23:58 11/24/24 00:15 Morphine 4mg/Ml Syringe IV 11/23/24 23:59 4 mg ONCE ONE Administration Ondansetron HCl 4 mg 11/23/24 23:58 11/24/24 00:14 Ondansetron 4mg/2ml Vial IV 11/23/24 23:59 4 mg ONCE ONE Administration Potassium Chloride 40 meq 11/23/24 22:09 11/23/24 22:30 Potassium Chloride 20meq Tab PO 11/23/24 22:10 40 meq ONCE ONE Administration Sodium Chloride 50 ml 11/23/24 22:24 11/23/24 22:24 0.9 % Sodium Chloride 50 Ml Vial IV 11/23/24 22:25 50 ml ONCE ONE Administration Sodium Chloride 10 ml 11/23/24 22:24 11/23/24 22:25 Sodium Chloride 0.9% 10ml Syr (Rad Only) IV 11/23/24 22:25 10 ml ONCE ONE Administration ORDERS Category Date Time Status CT angio abdomen pelvis Stat Cat Scan 11/23/24 22:07 Completed CTA Chest [CT angio chest - dissection] Stat Cat Scan 11/23/24 22:07 Completed XR chest portable Stat Exams 11/23/24 21:32 Completed Complete Blood Count Auto Diff Stat Lab 11/23/24 21:30 Completed Comprehensive Metabolic Panel Stat Lab 11/23/24 21:30 Completed Troponin I Q3H Lab 11/24/24 00:05 Received Troponin I Q3H Lab 11/24/24 03:45 Ordered Troponin I Stat Lab 11/23/24 21:30 Completed ECG Data Tracing #1: Attestation: I reviewed this ECG and interpreted as documented below: ECG Narrative: EKG personally interpreted by me demonstrates normal sinus rhythm at a rate of 89 bpm, normal axis, no ME prolongation, narrow QRS, no QTc prolongation. No ST elevation. There is a large T wave inversion in lead V2 that is isolated. MDM Narrative Medical Decision Narrative: In summary, this a 54-year-old female patient who is presenting to the emergency department today for evaluation of chest pain for the last 2 to 3 days that significantly worsened 1 hour prior to arrival and began radiating down the left arm. Pain onset while doing light activity inside of her home. Her comorbidities include hypertension, hyperlipidemia, coronary artery disease status post multivessel CABG, and resultant mesenteric ischemia status post hemicolectomy with colostomy formation. On initial evaluation of the patient they were resting comfortably in no acute distress and nontoxic in appearance. They are hemodynamically stable, saturating well room air, and are neurologically intact. On physical examination of the patient she is resting comfortably no acute distress and is nontoxic in appearance. She is hemodynamically stable, saturating well on room air, and is neurologically intact. On physical examination her heart lungs clear to auscultation bilaterally. She has no abdominal tenderness palpation. Radial pulses are equal and symmetric bilaterally. She appears well-hydrated. Differential diagnosis includes acute coronary syndrome, aortic dissection, pulmonary embolism, mesenteric ischemia, among others. Workup was initiated with hematologic labs including troponin and EKG. We will also perform a CTA of the chest, abdomen, and pelvis. Patient received 324 mg of aspirin prior to arrival so we did not administer additional aspirin here. We did treat her with 0.4 mg of sublingual nitroglycerin as well as 2.5 mg of Valium for anxiety. Patient states that the nitroglycerin significantly improved her pain but it has not resolved. After a couple of hours after receiving nitroglycerin she states that her pain has returned to what it was on arrival. EKG was interpreted by me and shows no overt signs of ischemia, however there is a T wave inversion that is isolated in lead V2. Labs were personally interpreted by me and demonstrated leukocytosis 17.2, no transfusional anemia, mild hypokalemia of 3.4, with no other electrolyte derangements or evidence of acute kidney injury. Initial troponin is less than 0.01. CTA of the chest, abdomen, and pelvis was personally interpreted by me and demonstrates no evidence of saddle pulmonary embolism or large aortic dissection. Official radiology read is in agreement and states that there is no acute abnormality. On repeat assessment of the patient she was experiencing a headache as well as persistent chest pain. Headache is likely due to nitroglycerin. We have treated with 1 g of acetaminophen. Additionally, for the pain in her chest I decided to administer 4 mg of morphine with 4 mg of Zofran. We have also treated her hypokalemia with 40 mEq of potassium chloride. This patient is considered high risk chest pain given that her heart score is 6 and she is still having significant chest pain despite the interventions listed above. Therefore I have had an interactive discussion with the internal medicine service who has agreed to evaluate the patient the emergency department. After our discussion and their evaluation have agreed to admit the patient to their service and except primary responsibility the patient moving forward
--- NOTE | 2024-11-23 21:32 | XR_ITS ---
PROCEDURE INFORMATION: Exam: XR Chest Exam date and time: 11/23/2024 9:45 PM Age: 54 years old Clinical indication: Pain; Chest pressure; Additional info: Chest pain TECHNIQUE: Imaging protocol: Radiologic exam of the chest. Views: 1 view. COMPARISON: CT CHEST W CON 10/17/2024 2:32 PM FINDINGS: Lungs: Unremarkable. No consolidation. Pleural spaces: Unremarkable. No pleural effusion. No pneumothorax. Heart/Mediastinum: The heart is not enlarged. There is evidence of prior CABG. Vasculature: Unremarkable. Bones/joints: Unremarkable. IMPRESSION: No acute findings.
[2024-11-23 22:00] LABS: Hematocrit 31.8 % (37.0-47.0); Hemoglobin 10.6 g/dL (12.2-16.2); Immature Granulocytes % 0.5 %; Mean Corpuscular HGB Conc 33.3 g/dL (31.8-35.4); Mean Corpuscular Hemoglobin 29.4 pg (27.0-31.2); Mean Corpuscular Volume 88.3 fl (81-99); Nucleated Red Blood Cells % 0 %; Platelet Count 441 K/mm3 (142-424); Red Blood Count 3.60 M/mm3 (4.20-5.40); Red Cell Distribution Width-SD 46.7 fL; White Blood Count 17.2 K/mm3 (4.8-10.8)
[2024-11-23 22:07] LABS: Alanine Aminotransferase 16 U/L (12-78); Albumin Level 4.0 g/dl (3.5-5.0); Albumin/Globulin Ratio 1.5 (1.1-1.8); Alkaline Phosphatase 103 U/L (38-126); Anion Gap 14.4 mEq/L (5-15); Aspartate Amino Transferase 29 U/L (14-36); Bilirubin,Total 0.4 mg/dl (0.2-1.3); Blood Urea Nitrogen 8 mg/dl (7-17); Calcium 8.7 mg/dl (8.4-10.2); Carbon Dioxide 25 mmol/L (22.0-30.0); Chloride 103 mmol/L (98-107); Creatinine Clearance Estimated 71 mL/min (50-200); Creatinine,Serum 0.80 mg/dl (0.52-1.04); Estimated Glomerular Filt Rate 74 ml/min (>60); GFR (African American) 90 ML/MIN (>60); Globulin 2.6 g/dL (1.3-3.2); Glucose 155 mg/dl (74-100); Potassium 3.4 mmoL/L (3.5-5.1); Sodium 139 mmol/L (136-145); Total Protein,Serum 6.6 g/dl (6.3-8.2)
--- NOTE | 2024-11-23 22:07 | CT_ITS ---
PROCEDURE INFORMATION: Exam: CTA Abdomen and Pelvis With Contrast Exam date and time: 11/23/2024 10:25 PM Age: 54 years old Clinical indication: Abdominal pain; Generalized; Additional info: Chest/abdominal pain TECHNIQUE: Imaging protocol: Computed tomographic angiography of the abdomen and pelvis with contrast. Exam focused on the arteries. 3D rendering (Not supervised by radiologist): MIP and/or 3D reconstructed images were created by the technologist. Radiation optimization: All CT scans at this facility use at least one of these dose optimization techniques: automated exposure control; mA and/or kV adjustment per patient size (includes targeted exams where dose is matched to clinical indication); or iterative reconstruction. Contrast material: ISO 370; Contrast volume: 80 ml; Contrast route: INTRAVENOUS (IV); COMPARISON: CT ANGIO ABDOMEN PELVIS 09/17/2024 6:09 PM FINDINGS: Aorta: No aortic aneurysm. No aortic dissection. There is moderate atherosclerotic disease. Celiac and mesenteric arteries: No occlusion or significant stenosis. Renal arteries: No occlusion or significant stenosis. Right iliac arteries: No occlusion or significant stenosis. Left iliac arteries: No occlusion or significant stenosis. Liver: No mass. Gallbladder and biliary ducts: The gallbladder is absent. There is no biliary ductal dilation. Pancreas: Unremarkable. No mass. No ductal dilation. Spleen: Unremarkable. No splenomegaly. Adrenal glands: Unremarkable. No mass. Kidneys and ureters: Unremarkable. No solid mass. No hydronephrosis. Stomach and bowel: Again noted is right upper quadrant colostomy with transverse and left colectomy along with Luis's pouch formation. Persistent but improved inflammatory changes of the terminal ileum and surrounding mesentery. Appendix: No evidence of appendicitis. Intraperitoneal space: Unremarkable. No free air. No significant fluid collection. Lymph nodes: Nonspecific mildly prominent abdominal and retroperitoneal lymph nodes. [employer] freedom hepatis/portacaval lymph node series 3, image 321 measures 8 x 15 mm. Urinary bladder: Unremarkable. No mass. Reproductive: Unremarkable as visualized. Bones/joints: There are mild degenerative changes of the spine. Soft tissues: There is parastomal hernia containing a loop of colon without obstruction. IMPRESSION: 1. Moderate atherosclerotic disease. No dissection, significant stenosis or occlusion. 2. Persistent but improved inflammatory changes of the terminal ileum. 3. Other nonemergent findings as noted.
--- NOTE | 2024-11-23 22:07 | CT_ITS ---
PROCEDURE INFORMATION: Exam: CTA Chest With Contrast Exam date and time: 11/23/2024 10:25 PM Age: 54 years old Clinical indication: Pain; Chest pressure; Additional info: Chest pain TECHNIQUE: Imaging protocol: Computed tomographic angiography of the chest with contrast. Exam focused on the arteries. 3D rendering (Not supervised by radiologist): MIP and/or 3D reconstructed images were created by the technologist. Radiation optimization: All CT scans at this facility use at least one of these dose optimization techniques: automated exposure control; mA and/or kV adjustment per patient size (includes targeted exams where dose is matched to clinical indication); or iterative reconstruction. Contrast material: ISOVUE; Contrast volume: 80 ml; Contrast route: INTRAVENOUS (IV); COMPARISON: CT CHEST W CON 10/17/2024 2:32 PM FINDINGS: Pulmonary arteries: Normal. No pulmonary emboli. Aorta: Unremarkable. No aortic aneurysm. No aortic dissection. An aberrant right subclavian artery is noted. Lungs: There is a persistent subpleural ground-glass opacity anterior left upper lobe measuring 13 mm series 5, image 37. Pleural spaces: Unremarkable. No pneumothorax. No pleural effusion. Heart: Unremarkable. No cardiomegaly. No pericardial effusion. Coronary arteries: There is evidence of CABG. Lymph nodes: Unremarkable. No enlarged lymph nodes. Bones/joints: Unremarkable. No acute fracture. Soft tissues: Unremarkable. IMPRESSION: 1. No acute findings No pulmonary embolus or acute aortic abnormality. 2. Persistent 13 mm ground-glass opacity anterior left upper lobe. Fleischner Society guidelines for follow-up and management of sub-solid groundglass nodules: =Solitary pure GGNs Less than 6 mm: No CT follow-up required =Greater than 6 mm: Initial follow-up CT at 6 months to confirm persistence then CT every 2 years until 5 years
[2024-11-23 22:19] LABS: Troponin I < 0.01 ng/ml (0.00-0.034)
[2024-11-23] MEDS: 0.9 % SODIUM CHLORIDE 50 ML VIAL IV (22:24)
[2024-11-23] MEDS: SODIUM CHLORIDE 0.9% 10ML SYR (RAD ONLY) 10 ML IV (22:25)
[2024-11-23] MEDS: IOPAMIDOL-370 (76%);100ML BOTTLE 80 ML IV (22:25)
[2024-11-23] MEDS: POTASSIUM CHLORIDE 20MEQ TAB 40 MEQ PO (22:30)
[2024-11-23] MEDS: diazePAM 10MG/2ML SYRINGE 2.5 MG IV (22:30)
[2024-11-23] MEDS: ACETAMINOPHEN 500MG TAB 1000 MG PO (23:10)
[2024-11-24] VITALS (7 sets, daily range): BP systolic 112–161; BP diastolic 57–93; PULSE 70–86; RESP 14–17; TEMP 36.6–37.1; O2SAT 92–98; BMI 23.1; BMI 23.7
[2024-11-24] MEDS: ONDANSETRON 4MG/2ML VIAL 4 MG IV ×2 (00:14→13:18)
[2024-11-24] MEDS: BELLADONNA ALKALOIDS 60 ML ML PO (00:15)
[2024-11-24] MEDS: MORPHINE 4MG/ML SYRINGE 4 MG IV (00:15)
--- NOTE | 2024-11-24 00:37 | P.HP_ITS ---
<Statement entered by Saul Morrell MD - 11/27/24 12:39> Agree with the plan of care as outlined by the PROJECT CONTROL OFFICER below. History of Present Illness *Admission Date: 11/24/24 *Reason for visit:: Chest pain *History of present illness: This is a 54-year-old female who is well-known to our service line and has a past medical history significant for coronary artery disease, essential tremor, hemorrhoids, endometriosis, LA, and mesenteric ischemia leading to right hemicolectomy and modified heart post coronary bypass and graft who presents with chest pain. Due to patient's symptoms, she presented to the emergency room for evaluation. While in the emergency room, CT scan of the chest was negative for any acute intrathoracic process but did reveal 13 mm ground glass opacity anterior to the left upper lobe. CT scan of the abdomen pelvis revealed mo derate arthrosclerosis disease and persistent but improved inflammatory changes of the terminal ileum. Patient continued to have sternal chest pain, so she was admitted for further management. During my evaluation patient, patient states she has been experiencing a 2-3-day history of sternal chest pain that occurs with and without activity. She voices today she started to have this pain extend or radiate to her left arm. She describes the pain as burning, worse with activity, and unrelieved with nitro. Patient recently underwent coronary artery bypass and graft due to a critical finding back in April of a critical distal left main disease in the dominant circumflex. Postoperatively, patient developed a mesenteric ischemic bowel resulting in ileostomy placement. Patient states that her chest pain worsened last night due to stress. She states it does feel worse when her chest is pressed. I palpated patient's left chest wall and she states it is worse when I pressed on her chest. She recently was evaluated by her primary business intelligence consultant and there were no significant changes to her medications. She is currently denying any lightheadedness, dizziness, fever, dizziness, shortness of breath, diaphoresis, nausea, vomiting, PND, orthopnea, or persistent diarrhea. She reports is having 2 loose stools approximately 1 day ago. She recently provided a specimen for C. difficile. She was informed in the past that she was colonized. Stool specimen provided on the eighth of this month shows patient was positive for C. difficile. [facility] Disclaimer: The information contained in this section may have been updated after the patient was seen, as this information can be updated by other users. Medical History (Updated 11/24/24 @ 00:52 by Wai Ennis APRN) Bleeding nose Dyspnea Cough Colostomy in place Heart attack Depression Anxiety History of pleurisy Hemorrhoid Essential tremor Endometriosis Surgical History History of hand surgery History of Hx of cholecystectomy H/O rotator cuff surgery History of hysterectomy Family History Other Essential tremor Family history of heart disease Social History Smoking Status: Never smoker alcohol intake: never substance use type: denies use current occupational status: unemployed and retired Travel in the last 8 weeks?: Inside the [place] household members: family housing: house caffeine: Yes Have you lived/traveled outside [place] in past 30 days?: No Contact w/someone who lives/traveled outside US past 30 days?: No Exposure to someone with infectious disease in past 14 days?: No Do you have a fever (greater than 100.4 F or 38 C)?: No Have you tested positive for COVID-19?: No Exposed to someone with COVID-19 in past 14 days?: No Do you have a sore throat?: No Do you have a cough?: No Do you have any weakness?: No Do you have any diarrhea?: No Are you experiencing any unusual bleeding?: No Do you have any muscle aches/pain?: No Do you have any abdominal pain?: No Are you experiencing loss of taste or smell?: No Other Medical History Have you received the Flu Vaccine for this season: No Have you received the Pneumonia Vaccine: No Review of Systems Review of Systems Review of systems:: pertinent systems reviewed and negative unless documented below Constitutional Constitutional: Reports system reviewed and no additional complaints, except as documented Eyes Eyes: Reports system reviewed and no additional complaints, except as documented ENT Ears, Nose, Mouth, and Throat: Reports system reviewed and no additional complaints, except as documented *Cardiovascular Cardiovascular: Reports chest pain, Reports chest pain at rest and Reports chest pain with activity *Respiratory Respiratory: Reports system reviewed and no additional complaints, except as documented *Gastrointestinal Gastrointestinal: Reports diarrhea *Genitourinary Genitourinary: Reports system reviewed and no additional complaints, except as documented *Musculoskeletal Musculoskeletal: Reports system reviewed and no additional complaints, except as documented Integumentary/Breasts Skin/Breast: Reports system reviewed and no additional complaints, except as documented *Neurologic Neurologic: Reports system reviewed and no additional complaints, except as documented Psychiatric Psychiatric: Reports system reviewed and no additional complaints, except as documented Endocrine Endocrine: Reports system reviewed and no additional complaints, except as documented Hematologic/Lymphatic Hematologic/Lymphatic: Reports system reviewed and no additional complaints, except as documented Allergic/Immunologic Allergic/Immunologic: Reports system reviewed and no additional complaints, except as documented Meds Home Medications and Allergies Home Medications ?Medication ?Instructions ?Recorded ?Confirmed ?Type citalopram 40 mg tablet 40 mg PO DAILY 12/23/2311/14 History primidone 50 mg tablet 50 mg PO BID 12/23/23 History bupropion HCl 300 mg 24 hr tablet, 300 mg PO DAILY 11/24/24 History extended release hydroxyzine HCl 10 mg tablet 10 mg PO Q8HP PRN Anxiety 05/01/24 11/24/24 History aspirin 81 mg chewable tablet 81 mg PO DAILY 07/21/24 11/24/24 History rosuvastatin 40 mg tablet 40 mg PO HS 07/21/24 5 History trazodone 50 mg tablet 50 mg PO HSP PRN Insomnia 11/24/24 History ondansetron 4 mg disintegrating 4 mg PO Q8H PRN nausea and 08/09/24 11/24/24 Rx tablet vomiting 4 days #12 tabs metoprolol tartrate 25 mg tablet 12.5 mg (1/2 x 25 mg) PO BID #30 09/04/24 11/24/24 Rx tabs New Prescriptions to Start Prescriptions: Allergies Allergy/AdvReac Type Severity Reaction Status Date / Time No Known Allergies Allergy Verified 11/12/24 15:14 Exam Data for Last 24 hours Vital signs and Labs for Last 24 Hours: Temp Pulse Resp BP Pulse Ox O2 Del Method O2 Flow Rate 98 F 76 11 L 158/88 H 99 Room Air 3 11/23/24 21:22 11/23/24 23:45 11/23/24 23:45 11/23/24 23:45 11/23/24 23:45 11/23/24 23:45 11/23/24 23:30 Laboratory Results - last 24 hr 11/23/24 21:30: WBC 17.2 H D, RBC 3.60 L, Hgb 10.6 L, Hct 31.8 L, MCV 88.3, MCH 29.4, MCHC 33.3, RDW 14.4, Plt Count 441 H, MPV 10.0, Neut % (Auto) 69.9, Lymph % (Auto) 21.4, [place] % (Auto) 7.9, Eos % (Auto) 0.0 L, Baso % (Auto) 0.3, Neut # (Auto) 12.0 H, Lymph # (Auto) 3.7, [place] # (Auto) 1.4 H, Eos # (Auto) 0.0, Baso # (Auto) 0.1, Sodium 139, Potassium 3.4 L, Chloride 103, Carbon Dioxide 25, Anion Gap 14.4, BUN 8, Creatinine 0.80, Estimated Creat Clear 71, Estimated GFR 74, Est GFR ( Amer) 90, Glucose 155 H, Calcium 8.7, Total Bilirubin 0.4, AST 29 D, ALT 16, Alkaline Phosphatase 103, Troponin I < 0.01, Total Protein 6.6, Albumin 4.0, Globulin 2.6, Albumin/Globulin Ratio 1.5 I & O for Last 24 hours: Intake & Output 11/21/24 11/22/24 11/23/24 11/24/24 23:59 23:59 23:59 23:59 Weight 56.245 kg Constitutional Constitutional: no acute distress, mild distress and thin *Routine HEENT Exam Head: Present normocephalic and atraumatic Eye: Present EOMI and PERRL ENT: Present mucous membranes moist *Routine Neck Exam Neck: Present supple, full ROM and trachea midline Routine Chest/Breast/Axilla Exam Chest wall: Present tenderness Breast: Present tenderness *Routine Respiratory Exam Respiratory: Present CTA bilaterally, normal respiratory effort, able to speak in complete sentences and symmetric chest movement *Routine Cardiovascular Exam Cardiovascular: Present RRR, Normal S1 and Normal S2 *Routine Abdominal Exam Abdominal: Present soft and ostomy Comments: Ostomy noted to right lower quadrant *Routine Rectal Exam Rectal:: deferred *Routine Genitalia Exam Genitalia:: deferred *Routine Extremities Exam Extremities: Present full ROM, pulses intact and normal capillary refill Routine Back/Spine/Pelvis Exam Back/Spine: Present full ROM *Routine Skin Exam Skin: Present intact, cyanosis and normal turgor *Routine Neurological Exam Neurological: Present alert, oriented X3, CN II-XII intact and moving all extremities Routine Psychiatric Exam Psychiatric: Present normal affect, normal thought process, cooperative, good insight and good judgment H&P: Result Impressions 54-year-old female with known coronary artery disease presents with refractory chest pain despite analgesia who is status post coronary bypass and graft back in April Assessment and Plan *Assessment and plan (1) Unstable angina: Status: Acute Category: Medical Code(s): I20.0 - Unstable angina (2) Chest pain: Status: Acute Qualifiers: Chest pain type: unspecified Qualified Code(s): R07.9 - Chest pain, unspecified Category: Medical Code(s): R07.9 - Chest pain, unspecified (3) CAD (coronary artery disease): Status: Acute Qualifiers: Associated angina: with unstable angina Coronary Disease-Associated Artery/Lesion type: unspecified vessel or lesion type [place] vs. transplanted heart: [place] heart Qualified Code(s): I25.110 - Atherosclerotic heart disease of [place] coronary artery with unstable angina pectoris Category: Medical Code(s): I25.10 - Atherosclerotic heart disease of [place] coronary artery without angina pectoris (4) Leukocytosis: Status: Acute Qualifiers: Leukocytosis type: unspecified Qualified Code(s): D72.829 - Elevated white blood cell count, unspecified Category: Medical Code(s): D72.829 - Elevated white blood cell count, unspecified (5) C. difficile colitis: Status: Acute Category: Medical Code(s): A04.72 - Enterocolitis due to Clostridium difficile, not specified as recurrent (6) Costochondritis: Status: Acute Category: Medical Code(s): M94.0 - Chondrocostal junction syndrome [[place]] (7) Thrombocytosis: Status: Acute Category: Medical Code(s): D75.839 - Thrombocytosis, unspecified (8) Hypokalemia: Status: Acute Category: Medical Code(s): E87.6 - Hypokalemia (9) Hyperglycemia: Status: Acute Category: Medical Code(s): R73.9 - Hyperglycemia, unspecified Plan Assessment: Chest pain Unstable angina Coronary artery disease Possible costochondritis - Patient is status post CABG back in April with four-vessel involvement currently prescribed 81 mg of aspirin daily - She presents with burning sensation to the chest that radiates to the left arm that is been ongoing for 2-3 days - I would expect that if this was actually due to vessel disease in the heart the troponin will be responsive by now - She does have reproducible pain upon palpation of the anterior chest wall - Suspected costochondritis. Sternal nonunion is least likely and there is no evidence on imaging that alludes to nonsternal union - Will consider steroids and NSAIDs-Will discuss with attending - Since she does have significant coronary artery disease, will keep patient n.p.o. until evaluated by cardiology - There still may be some concern for patency of grafts-again this is less likely given troponins and EKG are normal - Patient may need left heart cath so we will anticipate this for tomorrow - Patient's last 2D echo revealed an EF of greater than 50% and this was performed in October 2024 - Will continue to trend patient's troponin - Patient did have some T wave abnormality EKG C. difficile - Patient's CT scan of the abdomen pelvis is improved from before - Most recent stool specimen was positive for C. difficile but toxins was not performed - I called and discussed with lab to see if toxin can be performed to see if this is actual infection or colonization - They require a new stool specimen and will let me know what order to place - Will obtain another stool specimen and sent for toxin - Patient has been informed that she was colonized in the past - She reports only 2 loose stools yesterday but no more loose stools since then - Most likely patient is colonized and less likely active infection - Will hold off on treatment for now and discussed with attending Leukocytosis Thrombocytosis - No active infection has been identified - Will obtain procalcitonin - Will obtain blood cultures x 2 if patient experiences any fevers - Will continue to trend - Obtain peripheral smear - Patient's platelet count is actually improved from previous values Hypokalemia - Patient did receive 40 mill equivalents of potassium while in the emergency room Hyperglycemia -Patient has no formal diagnosis of diabetes - Will obtain fasting blood glucose in the a.m. and if greater than 120 will obtain hemoglobin A1c 13 mm ground glass opacity in the left upper lobe --Patient should have follow-up CT scan in 6 months Plan: Admit patient to the MedSur unit on telemetry Activity as tolerated If patient has no left heart cath tomorrow she can have a cardiac diet N.p.o. for now Saline lock Vital signs every 4 hours Consult cardiology CBC/BMP daily 40 mg Lovenox subcu daily for DVT prophylax 5 mg [place]ina p.o. every 4 hours as needed pain 2 mg morphine IV push every 4 hours pain severe pain 4 mg Zofran IV push straight hours pain nausea ROM Full code Discussed this case with attending physician Dr. Morrell and I look forward to more input
[2024-11-24 00:38] LABS: Troponin I 0.03 ng/ml (0.00-0.034)
--- NOTE | 2024-11-24 01:06 | PC.NURSE ---
Pt arrived to the floor via wheelchair @0102
[2024-11-24] MEDS: KETOROLAC 30MG/ML VIAL 30 MG IV ×3 (02:13→20:19)
--- NOTE | 2024-11-24 04:23 | PC.NURSE ---
Pt new admit this shift. AOx4, pleasant. States she was having some chest pain that has mostly resolved. She has a colostomy that was changed upon arrival to the floor. Lung sounds clear. Respirations even and unlabored. Pt denies any other complaints at this time. Received prn toradol per APR for continued pain. She is on telemetry. Standby to bathroom. Bed is low, locked, and call light is in reach.
[2024-11-24 04:32] LABS: Troponin I 0.03 ng/ml (0.00-0.034)
[2024-11-24 07:38] LABS: Hematocrit 31.9 % (37.0-47.0); Hemoglobin 10.4 g/dL (12.2-16.2); Immature Granulocytes % 0.6 %; Mean Corpuscular HGB Conc 32.6 g/dL (31.8-35.4); Mean Corpuscular Hemoglobin 29.2 pg (27.0-31.2); Mean Corpuscular Volume 89.6 fl (81-99); Nucleated Red Blood Cells % 0 %; Platelet Count 386 K/mm3 (142-424); Red Blood Count 3.56 M/mm3 (4.20-5.40); Red Cell Distribution Width-SD 46.9 fL; White Blood Count 15.2 K/mm3 (4.8-10.8)
[2024-11-24 07:54] LABS: Anion Gap 10.6 mEq/L (5-15); Blood Urea Nitrogen 10 mg/dl (7-17); Calcium 8.5 mg/dl (8.4-10.2); Carbon Dioxide 29 mmol/L (22.0-30.0); Chloride 102 mmol/L (98-107); Creatinine Clearance Estimated 82 mL/min (50-200); Creatinine,Serum 0.70 mg/dl (0.52-1.04); Estimated Glomerular Filt Rate 87 ml/min (>60); GFR (African American) 105 ML/MIN (>60); Glucose 117 mg/dl (74-100); Potassium 4.6 mmoL/L (3.5-5.1); Sodium 137 mmol/L (136-145)
[2024-11-24 08:15] LABS: Procalcitonin < 0.030 ng/mL (0.0-2.0)
--- NOTE | 2024-11-24 09:15 | HMH.PHAINT1 ---
Pharmacy Intervention Comments: MEDICATION RECONCILIATION COMPLETE USING EXTERNAL PHARMACY FILL HISTORY AND RECENT CARDIOLOGY OFFICE VISIT NOTE.
[2024-11-24] MEDS: ASPIRIN 81MG CHEWABLE TABLET 81 MG PO (09:21)
[2024-11-24 09:29] LABS: POC Glucose,Bedside 128 gm/dL (70-110)
[2024-11-24] MEDS: CITALOPRAM 40MG TABLET 40 MG PO (15:01)
[2024-11-24] MEDS: HYDROCODONE/APAP 5/325 MG TABLET 1 TAB PO (16:41)
[2024-11-24 17:36] LABS: Adenovirus F 40/41, stool Not Detected (NotDetected); Cyclospora Cayetanesis Not Detected (NotDetected); Plesimonas Shigalloides, PCR Not Detected (NotDetected); Salmonella, PCR Not Detected (NotDetected); Shiga-like toxin E coli Not Detected (NotDetected); Shigella Enterovasive E coli Not Detected (NotDetected); Vibrio, PCR Not Detected (NotDetected); Yersinia Entercolitica, PCR Not Detected (NotDetected)
--- NOTE | 2024-11-24 17:59 | PC.NURSE ---
Pt is A&Ox4. Vital signs stable tolerating room air. Pt complains of burning chest pain. Cardiology consulted. PRN pain medication given with relief. Pt states her anxiety has been bad today. PRN anxiety medication given per APR. Pt has colostomy in [facility]. Pt resting comfortably in bed with no further needs voiced at this time. Call light within reach.
[2024-11-24] MEDS: PRIMIDONE 50MG TABLET 50 MG PO (20:20)
[2024-11-24] MEDS: METOPROLOL TARTRATE 25MG TABLET 12.5 MG PO (20:20)
[2024-11-24] MEDS: ATORVASTATIN 40MG TABLET 80 MG PO (20:21)
[2024-11-24 20:49] LABS: Clostridium Difficile A/B, PCR Detected (NotDetected)
[2024-11-24] MEDS: TRAZODONE 50MG TABLET 50 MG PO (22:14)
[2024-11-25] VITALS (7 sets, daily range): BP systolic 97–126; BP diastolic 49–73; PULSE 65–82; RESP 16–18; TEMP 36.4–36.9; O2SAT 96–99; BMI 24.1
--- NOTE | 2024-11-25 01:22 | PC.NURSE ---
2230: colostomy full. Pt. requested help with changing the bad and device . Old colostomy removed and site cleansed around stoma and dried well. New ostomy appled over stoma. Stoma red/pink, mildly prolapsed. Stool loose and pasty, brown with strong odor.
--- NOTE | 2024-11-25 05:27 | PC.NURSE ---
Pt. is alert and orientated x 4. Pt. is on room air. Pt. c/o burning left upper chest pain that was 5/10. Pt. given PRN Toradol per APR. Pain was relieved. Pt. also c.o anxiety. Pt, has PRN anxiety med. Pt. has LLQ colostomy. Colostomy was changed out last night around 2230. .at 0500 Pt. woke up and the colostomy was leaking. There was loose pasty brown stool output all over pt. and bed. Patient cleaned up and colostomy changed out again. Bed linens all changed. Pt. has c-diff and was instructed on good hand washing. Pt. slept off and on this shift. Personal items and call serrano in reach. Bed in low and locked position. Safety measures in place.
[2024-11-25 07:02] LABS: Hematocrit 31.6 % (37.0-47.0); Hemoglobin 10.1 g/dL (12.2-16.2); Immature Granulocytes % 0.3 %; Mean Corpuscular HGB Conc 32.0 g/dL (31.8-35.4); Mean Corpuscular Hemoglobin 29.4 pg (27.0-31.2); Mean Corpuscular Volume 91.9 fl (81-99); Nucleated Red Blood Cells % 0 %; Platelet Count 342 K/mm3 (142-424); Red Blood Count 3.44 M/mm3 (4.20-5.40); Red Cell Distribution Width-SD 49.9 fL; White Blood Count 9.8 K/mm3 (4.8-10.8)
[2024-11-25 07:08] LABS: Chloride 103 mmol/L (98-107); Potassium 3.7 mmoL/L (3.5-5.1); Sodium 135 mmol/L (136-145)
[2024-11-25 07:11] LABS: Anion Gap 7.7 mEq/L (5-15); Blood Urea Nitrogen 13 mg/dl (7-17); Calcium 8.0 mg/dl (8.4-10.2); Carbon Dioxide 28 mmol/L (22.0-30.0); Creatinine Clearance Estimated 73 mL/min (50-200); Creatinine,Serum 0.80 mg/dl (0.52-1.04); Estimated Glomerular Filt Rate 74 ml/min (>60); GFR (African American) 90 ML/MIN (>60); Glucose 91 mg/dl (74-100)
[2024-11-25] MEDS: CITALOPRAM 40MG TABLET 40 MG PO (08:17)
[2024-11-25] MEDS: ASPIRIN 81MG CHEWABLE TABLET 81 MG PO (08:17)
[2024-11-25] MEDS: METOPROLOL TARTRATE 25MG TABLET 12.5 MG PO ×2 (08:17→19:59)
[2024-11-25] MEDS: PRIMIDONE 50MG TABLET 50 MG PO ×2 (08:17→19:59)
[2024-11-25] MEDS: KETOROLAC 30MG/ML VIAL 30 MG IV ×2 (08:27→20:00)
[2024-11-25] MEDS: PANTOPRAZOLE 40MG TABLET 40 MG PO ×2 (13:36→19:59)
[2024-11-25] MEDS: ACETAMINOPHEN 325MG TAB 650 MG PO (17:43)
--- NOTE | 2024-11-25 18:07 | PC.NURSE ---
Pt is A&Ox4. Vital signs stable tolerating room air. Contact pre-cautions for c-diff in place. Pt c/o burning chest pain once relieved with PRN pain medication. Cardiology consult for tomorrow. Pt resting comfortably in bed with no further needs voiced at this time.
[2024-11-25] MEDS: ATORVASTATIN 40MG TABLET 80 MG PO (19:59)
[2024-11-25] MEDS: TRAZODONE 50MG TABLET 50 MG PO (20:00)
--- NOTE | 2024-11-25 23:24 | EXP.PN ---
Subjective *Date: 11/25/24 *Time: 23:29 Interval history: Continues to have intermittent chest pain with left-sided radiation. Started Protonix 40 mg today. Follow-up cardiology evaluation in the morning, ECHO. Exam Data for Last 24 hours Vital signs and Labs for Last 24 Hours: Temp Pulse Resp BP Pulse Ox O2 Del Method O2 Flow Rate 98.4 F 73 16 110/73 98 Room Air 3 11/25/24 20:00 11/25/24 20:00 11/25/24 20:00 11/25/24 20:00 11/25/24 20:00 11/25/24 23:00 11/23/24 23:30 Laboratory Results - last 24 hr 11/25/24 06:25: WBC 9.8 D, RBC 3.44 L, Hgb 10.1 L, Hct 31.6 L, MCV 91.9, MCH 29.4, MCHC 32.0, RDW 14.8, Plt Count 342, MPV 9.8, Neut % (Auto) 42.7, Lymph % (Auto) 42.7, [place] % (Auto) 11.5 H, Eos % (Auto) 1.6, Baso % (Auto) 1.2, Neut # (Auto) 4.2, Lymph # (Auto) 4.2, [place] # (Auto) 1.1 H, Eos # (Auto) 0.2, Baso # (Auto) 0.1, Sodium 135 L, Potassium 3.7, Chloride 103, Carbon Dioxide 28, Anion Gap 7.7, BUN 13 D, Creatinine 0.80, Estimated Creat Clear 73, Estimated GFR 74, Est GFR ( Amer) 90, Glucose 91 D, Calcium 8.0 L I & O for Last 24 hours: Intake & Output 11/22/24 11/23/24 11/24/24 11/25/24 23:59 23:59 23:59 23:59 Intake Total 460 / 904 1044 / 1044 Output Total 300 / 300 0 / 0 Balance 160 / 604 1044 / 1044 Weight 56.245 kg 56.971 kg 58.014 kg Constitutional Constitutional: no acute distress and chronically ill appearing *Routine HEENT Exam Head: Present normocephalic Eye: Present EOMI and PERRL ENT: Present mucous membranes moist *Routine Neck Exam Neck: Present supple; Absent lymphadenopathy *Routine Respiratory Exam Respiratory: Present CTA bilaterally *Routine Cardiovascular Exam Cardiovascular: Present RRR *Routine Abdominal Exam Abdominal: Present soft and normoactive bowel sounds; Absent tenderness *Routine Extremities Exam Extremities: Absent cyanosis, clubbing or edema Comments: Colostomy in place. *Routine Skin Exam Skin: Present warm; Absent rash *Routine Neurological Exam Neurological: Present alert and oriented X3 Assessment and Plan *Assessment and plan (1) CAD (coronary artery disease): Status: Acute Category: Medical Code(s): I25.10 - Atherosclerotic heart disease of [place] coronary artery without angina pectoris (2) CABG (coronary artery bypass graft) planned: Status: Acute Category: Medical Code(s): Z78.9 - Other specified health status (3) Clostridium difficile carrier: Status: Acute Category: Medical Code(s): Z22.1 - Carrier of other intestinal infectious diseases Plan Rere Reese is a 54-year-old female with a medical history significant for CABG in April 2024, bowel ischemia after CABG s/p colostomy presented with midsternal chest pain with radiation to left shoulder. #Chest pain #Possible unstable angina #History of CABG April 2024 ? Presented with episodic midsternal chest pain with radiation to left shoulder both with exertion and at rest. Troponins negative, EKG without acute ischemic changes. ? Continues to have on and off episodes that self resolved. Has been adherent to her medications. GERD could also be contributing. ? Given complex cardiac history, cardiology consulted for evaluation of Tuesday. ? Follow-up limited ECHO. ? Follow-up TSH, A1c, lipid panel. ? Continue aspirin 81 mg, atorvastatin 80 mg, metoprolol tartrate 12.5 mg twice daily. #History of bowel ischemia with colostomy ? Stable. No evidence of high output state. #GERD ? Started Protonix 40 mg. #History of C. difficile ? Patient tested positive proceed few days prior to admission. Patient notes she has had C. difficile on multiple occasions. ? Denies diarrhea at this time. No abdominal pain. ? Positive C. difficile test could be from chronic colonization. ? Consider restarting vancomycin if patient becomes symptomatic. #Anxiety/depression ? Continue home bupropion 300 mg. Full code DVT prophylaxis: Lovenox 40 mg
[2024-11-26] VITALS: BP 98/50; PULSE 65; PULSE 70; RESP 16; TEMP 36.6; O2SAT 98
[2024-11-26 04:00] VITALS: BP 102/62; PULSE 60; PULSE 67; RESP 16; TEMP 36.5; O2SAT 98; BMI 23.7
--- NOTE | 2024-11-26 06:00 | CA_ITS ---
APPROVED REPORT EXAM: Limited 2D Echocardiogram Nylon Mender: Lainey Randle CRT Ht: 5 ft 1 in Wt: 127lbs BSA: 1.56 BP: 102/70 mmHg Indications: CP, CABG 05/08, ECHO 11/05/24 55% EF M-Mode Dimensions RVDd 2.76 cm (0.9-2.6) LA Diam 3.55 cm (1.9-4.0) LVDd 4.62 cm (3.5-5.7) LVDs 3.22 cm (3.5-5.7) IVSd 0.82 cm (0.6-1.1) PWd 0.57 cm (0.6-1.1) EF (Teich) 57.70% FS 30.30% EDV (Teich) 98.30 mL ESV (Teich) 41.60 mL Other Information Study Quality: Fair Conclusion This is a limited TTE to evaluate for LV systolic function. Limited windows are obtained. The left ventricle is normal in size. There is increased overall thickness. There is normal global LV systolic function. No regional wall motion abnormalities are noted. LVEF is 60-65%. Electronically signed by : Annette Saldana MD 11/26/2024 13:00:40
--- NOTE | 2024-11-26 06:03 | PC.NURSE ---
Pt is A&OX4 and has tolerated room air. She has rested well throughout the shift. She did complain of a burning chest pain at the beginning of the shift after ambulating. After rest and Toradol pt states relief of pain. She has remained NSR on tele. No other complaints at this time, call light within reach.
[2024-11-26] MEDS: MORPHINE 2MG/ML SYRINGE 2 MG IV (06:24)
[2024-11-26 06:46] LABS: Hematocrit 33.0 % (37.0-47.0); Hemoglobin 10.5 g/dL (12.2-16.2); Immature Granulocytes % 0.6 %; Mean Corpuscular HGB Conc 31.8 g/dL (31.8-35.4); Mean Corpuscular Hemoglobin 28.8 pg (27.0-31.2); Mean Corpuscular Volume 90.7 fl (81-99); Nucleated Red Blood Cells % 0 %; Platelet Count 403 K/mm3 (142-424); Red Blood Count 3.64 M/mm3 (4.20-5.40); Red Cell Distribution Width-SD 48.7 fL; White Blood Count 11.1 K/mm3 (4.8-10.8)
[2024-11-26 07:00] LABS: Chloride 102 mmol/L (98-107); Potassium 4.0 mmoL/L (3.5-5.1); Sodium 137 mmol/L (136-145)
[2024-11-26 07:03] LABS: Anion Gap 7.0 mEq/L (5-15); Blood Urea Nitrogen 17 mg/dl (7-17); Calcium 8.3 mg/dl (8.4-10.2); Carbon Dioxide 32 mmol/L (22.0-30.0); Creatinine Clearance Estimated 64 mL/min (50-200); Creatinine,Serum 0.90 mg/dl (0.52-1.04); Estimated Glomerular Filt Rate 65 ml/min (>60); GFR (African American) 79 ML/MIN (>60); Glucose 85 mg/dl (74-100)
[2024-11-26 07:37] VITALS: BP 102/65; PULSE 72; RESP 17; TEMP 36.6; O2SAT 96
[2024-11-26 08:00] VITALS: PULSE 70
[2024-11-26] MEDS: CITALOPRAM 40MG TABLET 40 MG PO (09:08)
[2024-11-26] MEDS: ASPIRIN 81MG CHEWABLE TABLET 81 MG PO (09:08)
[2024-11-26] MEDS: PRIMIDONE 50MG TABLET 50 MG PO (09:09)
[2024-11-26] MEDS: KETOROLAC 30MG/ML VIAL 30 MG IV (09:26)
--- NOTE | 2024-11-26 11:11 | EXP.CARD.CON ---
History of Present Illness History of Present Illness Consult date: 11/26/24 Requesting physician: Gregg Barth Consult reason: chest pain Chief complaint: chest pain History of present illness: This is a 54-year-old white female who presented to the emergency department with chest pain. The patient has a past medical history of coronary artery disease with CABG, mesenteric ischemia, chronic C. difficile. The patient states prior to admission she had a 2 to 3-day history of burning in the substernal aspect of her chest. She states that this is with her without activity. She states that this is gotten better since being in the hospital but she notices with exertion she is still having the burning in her chest. It radiates to her left arm. She states that it is unrelieved with nitroglycerin. She underwent coronary artery bypass grafting in April of this year. Postoperatively she did have mesenteric ischemia resulting in an ileostomy placement. She denies any shortness of breath, nausea or diaphoresis with chest pain. The patient has not been on a PPI due to her chronic C. difficile. She ruled out for an [place]. [facility] Disclaimer: The information contained in this section may have been updated after the patient was seen, as this information can be updated by other users. Medical History (Updated 11/26/24 @ 11:24 by Brooklyn Blas APRN) Peripheral arterial disease Hyperlipidemia Angina pectoris Bleeding nose Dyspnea Cough Colostomy in place Heart attack Depression Anxiety History of pleurisy Hemorrhoid Essential tremor Endometriosis Surgical History History of hand surgery History of Hx of cholecystectomy H/O rotator cuff surgery History of hysterectomy Family History Other Essential tremor Family history of heart disease Social History Smoking Status: Never smoker alcohol intake: never substance use type: denies use current occupational status: unemployed and retired Travel in the last 8 weeks?: Inside the [place] household members: family housing: house caffeine: Yes Have you lived/traveled outside [place] in past 30 days?: No Contact w/someone who lives/traveled outside US past 30 days?: No Exposure to someone with infectious disease in past 14 days?: No Do you have a fever (greater than 100.4 F or 38 C)?: No Have you tested positive for COVID-19?: No Exposed to someone with COVID-19 in past 14 days?: No Do you have a sore throat?: No Do you have a cough?: No Do you have any weakness?: No Do you have any diarrhea?: No Are you experiencing any unusual bleeding?: No Do you have any muscle aches/pain?: No Do you have any abdominal pain?: No Are you experiencing loss of taste or smell?: No Review of Systems Review of Systems Review of systems:: pertinent systems reviewed and negative unless documented below Constitutional Constitutional: Reports system reviewed and no additional complaints, except as documented Eyes Eyes: Reports system reviewed and no additional complaints, except as documented ENT Ears, Nose, Mouth, and Throat: Reports system reviewed and no additional complaints, except as documented *Cardiovascular Cardiovascular: Reports system reviewed and no additional complaints, except as documented, Reports chest pain, Reports chest pain at rest and Reports chest pain with activity *Respiratory Respiratory: Reports system reviewed and no additional complaints, except as documented *Gastrointestinal Gastrointestinal: Reports system reviewed and no additional complaints, except as documented *Genitourinary Genitourinary: Reports system reviewed and no additional complaints, except as documented *Musculoskeletal Musculoskeletal: Reports system reviewed and no additional complaints, except as documented Integumentary/Breasts Skin/Breast: Reports system reviewed and no additional complaints, except as documented *Neurologic Neurologic: Reports system reviewed and no additional complaints, except as documented Psychiatric Psychiatric: Reports system reviewed and no additional complaints, except as documented Endocrine Endocrine: Reports system reviewed and no additional complaints, except as documented Hematologic/Lymphatic Hematologic/Lymphatic: Reports system reviewed and no additional complaints, except as documented Allergic/Immunologic Allergic/Immunologic: Reports system reviewed and no additional complaints, except as documented Exam Data for Last 24 hours Vital signs and Labs for Last 24 Hours: Temp Pulse Resp BP Pulse Ox O2 Del Method O2 Flow Rate 97.9 F 70 17 102/65 L 96 Room Air 3 11/26/24 07:37 11/26/24 08:00 11/26/24 07:37 11/26/24 07:37 11/26/24 07:37 11/26/24 09:00 11/23/24 23:30 Laboratory Results - last 24 hr 11/26/24 06:04: WBC 11.1 H, RBC 3.64 L, Hgb 10.5 L, Hct 33.0 L, MCV 90.7, MCH 28.8, MCHC 31.8, RDW 14.7, Plt Count 403, MPV 9.7, Neut % (Auto) 53.0, Lymph % (Auto) 29.7, [place] % (Auto) 11.4 H, Eos % (Auto) 3.9, Baso % (Auto) 1.4, Neut # (Auto) 5.9, Lymph # (Auto) 3.3, [place] # (Auto) 1.3 H, Eos # (Auto) 0.4, Baso # (Auto) 0.2, Sodium 137, Potassium 4.0, Chloride 102, Carbon Dioxide 32 H, Anion Gap 7.0, BUN 17 D, Creatinine 0.90, Estimated Creat Clear 64, Estimated GFR 65, Est GFR ( Amer) 79, Glucose 85, Calcium 8.3 L I & O for Last 24 hours: Intake & Output 11/23/24 11/24/24 11/25/24 11/26/24 23:59 23:59 23:59 23:59 Intake Total 460 / 904 1044 / 1044 360 / 360 Output Total 300 / 300 0 / 0 100 / 100 Balance 160 / 604 1044 / 1044 260 / 260 Weight 124 lb 125 lb 9.6 oz 127 lb 14.4 oz 125 lb 12.8 oz Constitutional Constitutional: no acute distress and average body habitus *Routine HEENT Exam Head: Present normocephalic and atraumatic ENT: Present mucous membranes moist *Routine Neck Exam Neck: Present supple, full ROM and normal carotid upstroke; Absent JVD, carotid bruit or lymphadenopathy *Routine Respiratory Exam Respiratory: Present CTA bilaterally, normal respiratory effort, able to speak in complete sentences and symmetric chest movement *Routine Cardiovascular Exam Cardiovascular: Present RRR, Normal S1 and Normal S2; Absent murmur or gallop *Routine Abdominal Exam Abdominal: Present soft, normoactive bowel sounds and ostomy; Absent tenderness, distended or organomegaly *Routine Extremities Exam Extremities: Present full ROM, pulses intact and normal capillary refill; Absent cyanosis, clubbing or edema *Routine Skin Exam Skin: Present intact and warm; Absent erythema *Routine Neurological Exam Neurological: Present alert, oriented X3 and CN II-XII intact; Absent sensory deficit or motor deficit Routine Psychiatric Exam Psychiatric: Present normal affect Meds Home Medications and Allergies Home Medications ?Medication ?Instructions ?Recorded ?Confirmed ?Type citalopram 40 mg tablet 40 mg PO DAILY 12/23/23 11/24/24 History primidone 50 mg tablet 50 mg PO BID 12/23/23 11/24/24 History bupropion HCl 300 mg 24 hr tablet, 300 mg PO DAILY 05/01/24 11/24/24 History extended release hydroxyzine HCl 10 mg tablet 10 mg PO Q8HP PRN Anxiety 05/01/24 11/24/24 History aspirin 81 mg chewable tablet 81 mg PO DAILY 07/21/24 11/24/24 History rosuvastatin 40 mg tablet 40 mg PO HS 07/21/24 11/24/24 History trazodone 50 mg tablet 50 mg PO HSP PRN Insomnia 08/07/24 11/24/24 History metoprolol tartrate 25 mg tablet 12.5 mg (1/2 x 25 mg) PO BID #30 09/04/24 11/24/24 Rx tabs fluticasone propionate 50 1 spray intranasal DAILY 11/24/24 11/24/24 History mcg/actuation nasal spray,suspension methocarbamol 750 mg tablet 750 mg PO Q6HP PRN Muscle Spasm 11/24/24 11/24/24 History ondansetron 4 mg disintegrating 4 mg PO Q8HP PRN nausea and 11/24/24 11/24/24 History tablet vomiting famotidine 20 mg tablet 20 mg PO BID 30 days #60 tabs 11/26/24 Rx New Prescriptions to Start Prescriptions: famotidine Gregg Barth Allergies Allergy/AdvReac Type Severity Reaction Status Date / Time No Known Allergies Allergy Verified 11/12/24 15:14 Assessment and Plan *Assessment and plan (1) Angina pectoris: Status: Acute Category: Medical Code(s): I20.9 - Angina pectoris, unspecified (2) CAD (coronary artery disease): Status: Acute Qualifiers: Associated angina: with other forms of angina Coronary Disease-Associated Artery/Lesion type: [place] artery [place] vs. transplanted heart: [place] heart Qualified Code(s): I25.118 - Atherosclerotic heart disease of [place] coronary artery with other forms of angina pectoris Category: Medical Code(s): I25.10 - Atherosclerotic heart disease of [place] coronary artery without angina pectoris (3) CABG (coronary artery bypass graft) planned: Status: Acute Category: Medical Code(s): Z78.9 - Other specified health status (4) Clostridium difficile carrier: Status: Acute Category: Medical Code(s): Z22.1 - Carrier of other intestinal infectious diseases (5) Hyperlipidemia: Status: Acute Qualifiers: Hyperlipidemia type: mixed hyperlipidemia Qualified Code(s): E78.2 - Mixed hyperlipidemia Category: Medical Code(s): E78.5 - Hyperlipidemia, unspecified (6) Colostomy in place: Status: Acute Category: Medical Code(s): Z93.3 - Colostomy status (7) Peripheral arterial disease: Status: Acute Category: Medical Code(s): I73.9 - Peripheral vascular disease, unspecified Plan Plan: 1. The patient was admitted to the hospital with chest pain. She has known coronary artery disease status post CABG in April of this year. She ruled out for an [place]. No plans for invasive left cardiac catheterization at this time. 2. The patient is on metoprolol for an antianginal. Imdur cannot be started because her blood pressure is too low. Ranexa cannot be started due to its interaction with primidone. 3. The patient is complaining of burning in her chest. She was not on a PPI due to her chronic C. difficile. She has been started on Protonix. Pepcid will be added today as well. 4. CAD is likely stable. Continue aspirin. 5. Echocardiogram is currently pending. 6. BP is on the low side but acceptable. Continue metoprolol. 7. Her LDL goal is less than 55. Will get a lipid panel. Continue Lipitor. 8. The patient does have moderate aortic atherosclerotic disease. This can be further worked up on an outpatient basis. 9. No further recommendations at this time from a cardiac standpoint. The patient can be discharged home today from a cardiac standpoint with PPI in place. The patient will need to follow-up in cardiology clinic in 1 to 2 weeks. Thank you for the opportunity to help participate in the care of this patient. All recommendations and orders are per Dr. Saldana.
[2024-11-26 11:27] LABS: Cholesterol 128 mg/dl (140-200); HDL Cholesterol 46 mg/dl (40-60); Triglycerides 151 mg/dl (30-150)
[2024-11-26 12:00] VITALS: BP 110/65; PULSE 72; PULSE 80; RESP 17; TEMP 36.6; O2SAT 98
[2024-11-26] MEDS: FAMOTIDINE 20MG TABLET 20 MG PO (12:24)
--- NOTE | 2024-11-26 13:38 | P.DS_ITS ---
General Admission date:: 11/24/24 Discharge date: 11/26/24 HPI HPI HPI: This is a 54-year-old female who is well-known to our service line and has a past medical history significant for coronary artery disease, essential tremor, hemorrhoids, endometriosis, DC, and mesenteric ischemia leading to right hemicolectomy and modified heart post coronary bypass and graft who presents with chest pain. Due to patient's symptoms, she presented to the emergency room for evaluation. While in the emergency room, CT scan of the chest was negative for any acute intrathoracic process but did reveal 13 mm ground glass opacity anterior to the left upper lobe. CT scan of the abdomen pelvis revealed moderate arthrosclerosis disease and persistent but improved inflammatory changes of the terminal ileum. Patient continued to have sternal chest pain, so she was admitted for further management. During my evaluation patient, patient states she has been experiencing a 2-3-day history of sternal chest pain that occurs with and without activity. She voices today she started to have this pain extend or radiate to her left arm. She describes the pain as burning, worse with activity, and unrelieved with nitro. Patient recently underwent coronary artery bypass and graft due to a critical finding back in April of a critical distal left main disease in the dominant circumflex. Postoperatively, patient developed a mesenteric ischemic bowel resulting in ileostomy placement. Patient states that her chest pain worsened last night due to stress. She states it does feel worse when her chest is pressed. I palpated patient's left chest wall and she states it is worse when I pressed on her chest. 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 She is currently denying any lightheadedness, dizziness, fever, dizziness, shortness of breath, diaphoresis, nausea, vomiting, PND, orthopnea, or persistent diarrhea. She reports is having 2 loose stools approximately 1 day ago. She recently provided a specimen for C. difficile. She was informed in the past that she was colonized. Stool specimen provided on the eighth of this month shows patient was positive for C. difficile. Hospital Course Hospital Course Hospital Course: Rere Reese is a 54-year-old female with a medical history significant for CABG in April 2024, bowel ischemia after CABG s/p colostomy presented with midsternal chest pain with radiation to left shoulder. Monitored inpatient. Overall did well. Evaluated by cardiology. Deferred on left heart cath at this time. Ruled out for DC. Recommend initiating treatment. Overall did well during admission. Symptoms improving. Stable discharge home with further management as an outpatient. Problems addressed as follows: #Chest pain #Possible unstable angina #History of CABG April 2024 ? Presented with episodic midsternal chest pain with radiation to left shoulder both with exertion and at rest. Troponins negative, EKG without acute ischemic changes. Continues to have on and off episodes that self resolved. Has been adherent to her medications. GERD could also be contributing. Given complex cardiac history, cardiology consulted for evaluation. Given her negative troponins and EKG without ischemic changes, no plan for left heart cath. No change in echo at this time. Recommend alternate etiology for chest pain and treating GERD. Stable discharge home with follow-up in cardiology clinic in 1 to 2 weeks. ? Continue aspirin 81 mg, atorvastatin 80 mg, metoprolol tartrate 12.5 mg twice daily. Imdur cannot be started because her blood pressure is too low. Ranexa cannot be started due to its interaction with primidone. #History of bowel ischemia with colostomy ? Stable. No evidence of high output state. #GERD: Started Protonix during admission. However given her history of C. difficile, will transition to famotidine at discharge to treat due to lower risk of C. difficile.. #History of C. difficile ? Patient tested positive proceed few days prior to admission. Patient notes she has had C. difficile on multiple occasions. Denies diarrhea at this time. No abdominal pain. Positive C. difficile test could be from chronic colonization. Did not require initiation of vancomycin. #Anxiety/depression: Continue home bupropion 300 mg. Total time spent on discharge 32 minutes in counseling, documentation, chart review, and direct care with patient. Exam Data for Last 24 hours Vital signs and Labs for Last 24 Hours: Temp Pulse Resp BP Pulse Ox O2 Del Method O2 Flow Rate 97.9 F 72 17 110/65 98 Room Air 3 11/26/24 12:00 11/26/24 12:00 11/26/24 12:00 11/26/24 12:00 11/26/24 12:00 11/26/24 12:00 11/23/24 23:30 Laboratory Results - last 24 hr 11/26/24 06:04: WBC 11.1 H, RBC 3.64 L, Hgb 10.5 L, Hct 33.0 L, MCV 90.7, MCH 28.8, MCHC 31.8, RDW 14.7, Plt Count 403, MPV 9.7, Neut % (Auto) 53.0, Lymph % (Auto) 29.7, [place] % (Auto) 11.4 H, Eos % (Auto) 3.9, Baso % (Auto) 1.4, Neut # (Auto) 5.9, Lymph # (Auto) 3.3, [place] # (Auto) 1.3 H, Eos # (Auto) 0.4, Baso # (Auto) 0.2, Sodium 137, Potassium 4.0, Chloride 102, Carbon Dioxide 32 H, Anion Gap 7.0, BUN 17 D, Creatinine 0.90, Estimated Creat Clear 64, Estimated GFR 65, Est GFR ( Amer) 79, Glucose 85, Calcium 8.3 L, Triglycerides 151 H, Cholesterol 128 L, LDL Cholesterol Direct 46.95 L, VLDL Cholesterol 30, HDL Cholesterol 46, Cholesterol/HDL Ratio 2.8 I & O for Last 24 hours: Intake & Output 11/23/24 11/24/24 11/25/24 11/26/24 23:59 23:59 23:59 23:59 Intake Total 460 / 904 1044 / 1044 810 / 810 Output Total 300 / 300 0 / 0 100 / 100 Balance 160 / 604 1044 / 1044 710 / 710 Weight 56.245 kg 56.971 kg 58.014 kg 57.062 kg Constitutional Constitutional: no acute distress, thin, chronically ill appearing and cooperative *Routine HEENT Exam Head: Present normocephalic Eye: Present EOMI and PERRL ENT: Present mucous membranes moist *Routine Neck Exam Neck: Present supple; Absent lymphadenopathy *Routine Respiratory Exam Respiratory: Present CTA bilaterally; Absent rhonchi, wheezes or crackles *Routine Cardiovascular Exam Cardiovascular: Present RRR *Routine Abdominal Exam Abdominal: Present soft, normoactive bowel sounds and tenderness (non-focal, improving); Absent rebound Comments: healed midline scar; ostomy in Rt Lower abdomen, stoma pink, liquid stool output *Routine Rectal Exam Patient deferred: visual exam *Routine Exam Patient deferred: external exam *Routine Extremities Exam Extremities: Absent cyanosis, clubbing or edema *Routine Skin Exam Skin: Present warm; Absent rash *Routine Neurological Exam Neurological: Present alert, oriented X3 and moving all extremities; Absent altered mental status Results Data Completed and Pending Labs on day of discharge: Labs from last 24 hours 11/26/24 06:04 WBC 11.1 H RBC 3.64 L Hgb 10.5 L Hct 33.0 L MCV 90.7 MCH 28.8 MCHC 31.8 RDW 14.7 Plt Count 403 MPV 9.7 Neut % (Auto) 53.0 Lymph % (Auto) 29.7 [place] % (Auto) 11.4 H Eos % (Auto) 3.9 Baso % (Auto) 1.4 Neut # (Auto) 5.9 Lymph # (Auto) 3.3 [place] # (Auto) 1.3 H Eos # (Auto) 0.4 Baso # (Auto) 0.2 Sodium 137 Potassium 4.0 Chloride 102 Carbon Dioxide 32 H Anion Gap 7.0 BUN 17 D Creatinine 0.90 Estimated Creat Clear 64 Estimated GFR 65 Est GFR ( Amer) 79 Glucose 85 Calcium 8.3 L Triglycerides 151 H Cholesterol 128 L LDL Cholesterol Direct 46.95 L VLDL Cholesterol 30 HDL Cholesterol 46 Cholesterol/HDL Ratio 2.8 DS: Diagnosis Discharge Diagnosis (1) Angina pectoris: Status: Acute Code(s): I20.9 - Angina pectoris, unspecified (2) CAD (coronary artery disease): Status: Acute Code(s): I25.10 - Atherosclerotic heart disease of [place] coronary artery without angina pectoris Qualifiers: Associated angina: with other forms of angina Coronary Disease- Associated Artery/Lesion type: [place] artery [place] vs. transplanted heart: [place] heart Qualified Code(s): I25.118 - Atherosclerotic heart disease of [place] coronary artery with other forms of angina pectoris (3) CABG (coronary artery bypass graft) planned: Status: Acute Code(s): Z78.9 - Other specified health status (4) Clostridium difficile carrier: Status: Acute Code(s): Z22.1 - Carrier of other intestinal infectious diseases (5) Hyperlipidemia: Status: Acute Code(s): E78.5 - Hyperlipidemia, unspecified Qualifiers: Hyperlipidemia type: mixed hyperlipidemia Qualified Code(s): E78.2 - Mixed hyperlipidemia (6) Colostomy in place: Status: Acute Code(s): Z93.3 - Colostomy status (7) Peripheral arterial disease: Status: Acute Code(s): I73.9 - Peripheral vascular disease, unspecified Meds Home Medications and Allergies Home Medications ?Medication ?Instructions ?Recorded ?Confirmed ?Type citalopram 40 mg tablet 40 mg PO DAILY 12/23/2311/14 History primidone 50 mg tablet 50 mg PO BID 12/23/23 History bupropion HCl 300 mg 24 hr tablet, 300 mg PO DAILY 11/24/24 History extended release hydroxyzine HCl 10 mg tablet 10 mg PO Q8HP PRN Anxiety 05/01/24 11/24/24 History aspirin 81 mg chewable tablet 81 mg PO DAILY 07/21/24 11/24/24 History rosuvastatin 40 mg tablet 40 mg PO HS 07/21/24 5 History trazodone 50 mg tablet 50 mg PO HSP PRN Insomnia 11/24/24 History metoprolol tartrate 25 mg tablet 12.5 mg (1/2 x 25 mg) PO BID #30 09/04/24 11/24/24 Rx tabs fluticasone propionate 50 1 spray intranasal DAILY 01/0811/24/24 History mcg/actuation nasal spray,suspension methocarbamol 750 mg tablet 750 mg PO Q6HP PRN Muscle Spasm 11/24/24 11/24/24 History ondansetron 4 mg disintegrating 4 mg PO Q8HP PRN nause a and 11/24/24 11/24/24 History tablet vomiting famotidine 20 mg tablet 20 mg PO BID 30 days #60 tab s 11/26/24 Rx New Prescriptions to Start Prescriptions: famotidine Gregg Barth Allergies Allergy/AdvReac Type Severity Reaction Status Date / Time No Known Allergies Allergy Verified 11/12/24 15:14 Discharge Plan Disposition Patient Disposition: Home, Self-Care Condition: Good Follow up Plan Follow up with: Champ Quiroz MD [Primary Care Provider, Internal Medicine] - 12/05/24 2:15 pm Jono Saldana MD [Staff Physician, Cardiology] - 12/10/24 2:30 pm Prescriptions/Medication Reconciliation: New famotidine 20 mg Tablet 20 mg PO BID 30 Days Qty: 60 0RF Continued metoprolol tartrate 25 mg tablet 12.5 mg PO BID Qty: 30 5RF trazodone 50 mg Tablet 50 mg PO HSP PRN (Reason: Insomnia) methocarbamol 750 mg tablet 750 mg PO Q6HP PRN (Reason: Muscle Spasm) fluticasone propionate 50 mcg/actuation spray,suspension 1 spray INTRANASAL DAILY Patient Comments: USE 1 SPRAY(S) IN EACH NOSTRIL ONCE DAILY ondansetron 4 mg tablet,disintegrating 4 mg PO Q8HP PRN (Reason: nausea and vomiting) primidone 50 mg tablet 50 mg PO BID Patient Comments: TAKE 1 TABLET BY MOUTH TWICE DAILY FOR 90 DAYS citalopram 40 mg tablet 40 mg PO DAILY hydroxyzine HCl 10 mg tablet 10 mg PO Q8HP PRN (Reason: Anxiety) Patient Comments: TAKE 1 TABLET BY MOUTH EVERY 8 HOURS NEEDED FOR 15 DAYS bupropion HCl 300 mg tablet extended release 24 hr 300 mg PO DAILY Patient Comments: TAKE 1 TABLET BY MOUTH EVERY 24 HOURS aspirin 81 mg tablet,chewable 81 mg PO DAILY rosuvastatin 40 mg tablet 40 mg PO HS Problem Reconciliation Problems Reviewed?: Yes Patient Discharge Instructions ACTIVITY: Continue current activity DIET: continue same diet Patient Instructions: Heart-Healthy Diet, DI for Chest Pain, DI for Clostridioides difficile Infection Print Language: [place] Providers Primary Care Provider: Champ Quiroz Admit Provider: Saul Morrell Attending Provider: Saul Morrell
[2024-11-26 14:28] VITALS: BMI 23.7
[2024-11-26 16:00] VITALS: PULSE 80
--- NOTE | 2024-11-28 10:27 | SW/DCPLANNER ---
Spoke with patient on the phone. Patient stated that she is doing well. Patient stated that she is aware of her upcoming appointments. Patient stated that she was able to get her new medicine picked up from [facility]. Patient stated that she has no concerns or questions at this time. Daniel Flowers
== END 2024-11-26 17:18 | disposition home or self-care (01) ==
LOC: ER 21:35 → 2ND 11-24 00:20
PROVIDERS: Nurse Practitioner Family; Admitting Provider Student in an Organized Health Care Education/Training Program; Emergency Provider Student in an Organized Health Care Education/Training Program; PCP Internal Medicine Adolescent Medicine; Visit Provider Student in an Organized Health Care Education/Training Program
DX: I25.110 Atherosclerotic heart disease of native coronary artery with unstable angina pectoris (principal); E78.2 Mixed hyperlipidemia; I73.9 Peripheral vascular disease, unspecified; K21.9 Gastro-esophageal reflux disease without esophagitis; F41.9 Anxiety disorder, unspecified; F32.A Depression, unspecified; M94.0 Chondrocostal junction syndrome [Tietze]; E87.6 Hypokalemia; R73.9 Hyperglycemia, unspecified; R91.8 Other nonspecific abnormal finding of lung field; D61.818 Other pancytopenia; K43.5 Parastomal hernia without obstruction or gangrene; I10 Essential (primary) hypertension; I25.2 Old myocardial infarction; Z22.1 Carrier of other intestinal infectious diseases; Z93.3 Colostomy status; Z93.2 Ileostomy status; Z87.891 Personal history of nicotine dependence; Z82.49 Family history of ischemic heart disease and other diseases of the circulatory system; Z78.9 Other specified health status; Z90.49 Acquired absence of other specified parts of digestive tract; Z95.1 Presence of aortocoronary bypass graft; Z79.82 Long term (current) use of aspirin; Z79.899 Other long term (current) drug therapy
CPT/HCPCS: 36415; 71045; 71275; 74174; 80048; 80053; 80061; 82962; 84145; 84484; 85025; 87324; 87506; 93005; 93308; 96372; 96374; 96375; 96376; 99285; G0378; J1650; J1885; J2270; J2405; J3360; Q9967

== ENCOUNTER 2024-12-17 15:14 | Inpatient (IN) | payer MEDICAID, SELFPAY ==
--- OUTSIDE RECORDS SUMMARY | 2024-11-01 10:15 | XMS_ITS ---
Author Organization [facility] Address [address] [place] [address] Care Team Providers Care Crossbow Maker Name Role Phone Michaelle Rivas Primary Care Provider Champ Quiroz [phone] REASON FOR VISIT 1 month f/u Encounters Encounter Location Date Provider Diagnosis [address] [address] 11/01/2024 Champ Quiroz Plan Of Treatment No Information Progress Notes * Rere REESE ADOB: [birth year] (54 yo F)Acc No.[id number]:11/01/2024 Progress Notes Patient: Rere DICKSON Provider: Dayana Quiroz MD :1970 A ge:53 Y S ex:Female Date:11/01/2024 Address:[address] [place] [address] [place] Pcp:Michaelle Rivas Subjective: * Chief Complaints: * 1 . 1 month f/u. * Medical History: Objective: * Vitals: Assessment: Plan: * Treatment: * * Electronic signature of Philippe Quiroz MD FAAP on 12/17/2024 at 03:32 PM EST Sign off status: Pending * Provider: Dayana Quiroz MD Date: 0 11/01/2024 Generated for Printi ng/Faxing/eTransmitting on: 02/17/2024 03:32 PM EST
--- OUTSIDE RECORDS SUMMARY | 2024-11-08 06:45 | XMS_ITS ---
Author Organization [facility] Address [address] [place] [address] Care Team Providers Care Interior Design Coordinator Name Role Phone Michaelle Rivas Primary Care Provider Champ Quiroz [phone] REASON FOR VISIT F/u, possible flu shot Encounters Encounter Location Date Provider Diagnosis [address] [address] 11/08/2024 Champ Quiroz Plan Of Treatment No Information Progress Notes * Rere REESE ADOB: [birth year] (54 yo F)Acc No.[id number]:11/08/2024 Progress Notes Patient: Rere DICKSON Provider: Dayana Quiroz MD :1970 A ge:54 Y S ex:Female Date:11/08/2024 Address:[address] [place] [address] [place] Pcp:Michaelle Rivas Subjective: * Chief Complaints: * 1 . F/u, possible flu shot. * Medical History: Objective: * Vitals: Assessment: Plan: * Treatment: * * Electronic signature of Philippe Quiroz MD FAAP on 12/17/2024 at 03:32 PM EST Sign off status: Pending * Provider: Dayana Quiroz MD Date: 0 11/08/2024 Generated for Aleshiai alayna/Fior/eTransmitting on: 02/17/2024 03:32 PM EST
--- OUTSIDE RECORDS SUMMARY | 2024-11-12 10:45 | XMS_ITS ---
Author Organization [facility] Address [address] [place] [address] Care Team Providers Care Administrative Technician Name Role Phone Michaelle Rivas Primary Care Provider [phone] Champ Quiroz Unavailable [phone] Allergies Allergen (clinical drug ingredient) Drug/Non Drug [...] W/U Status Risk Notes Problem Chronic rhinitis (52249955) Chronic rhinitis (J31.0) Active confirmed Vital Signs Temperature 97.5 degrees Fahrenheit 11/13/19 25 Blood pressure systolic 150 mm Hg 11/13/19 25 Blood pressure diastolic 70 mm Hg 025 Heart Rate 80 /min 11/12/2024 Height 5 ft 1 in in 11/12/2024 Weight 124.6 lbs 11/12/2024 BMI 23.54 kg/m2 11/12/2024 Encounters Encounter Location Date Provider Diagnosis [facility] [place] [address] [place], [place] [address] 11/12/2024 Champ Quiroz Subacute cough R05.2 and [...] Next Appt Details Follow Up: prn, Reason: Medications Administered Medication Instructions Date of Administration Dosage Notes Dexamethasone 4mg Injection 11/12/2024 4 mg Progress Notes * Rere REESE ADOB: [birth year] (54 yo F)Acc No.[id number]:11/12/2024 Progress Notes Patient: Rere DICKSON Provider: Dayana Quiroz MD :1970 A ge:54 Y S ex:Female Date:11/12/2024 Address:[address] [place] [address] [id number] Pcp:Michaelle Rivas Subjective: * Chief Complaints: * [...] post CABG May [address] [facility], Sepsis, bowel ischemia and colostomy April/[address] [facility], Colitis. * Medications: T aking Aspirin 81 [...] J 1100 Dexamethasone Sodium Phosphate 4mg Injection, [address] THERAPEUTIC ADMINISTRATION * Follow Up: p rn * * Sign off status: Completed true * Provider: Dayana Quiroz MD Date: 0 11/12/2024 Generated for Little catalan/Fior/Lataitting on: 02/17/2024 03:33 PM EST History and Physical Notes * [...]
--- OUTSIDE RECORDS SUMMARY | 2024-11-21 05:28 | XMS_ITS ---
Author Organization [facility] Address [address] [place] [address] Care Team Providers Care Manager Plumbing Name Role Phone Michaelle Rivas Primary Care Provider Champ Quiroz Unavailable [phone] Results Component Value Reference Range Notes M-Complete [...] CDiff Encounters Encounter Location Date Provider Diagnosis [facility] [address] [place] [address] 11/21/2024 Michaelle McNees Acute abdominal pain R10.9 and Diarrhea, unspecified type R19.7 Assessments Encounter Date Diagnosis (ICD Code) Assessment Notes Treatment Notes Treatment Clinical Notes Section Notes 11/21/2024 Acute abdominal pain (ICD-10 - R10.9) 11/21/2024 Diarrhea, unspecified type (ICD-10 - R19.7) Plan Of Treatment No Information Progress Notes * Miguel Ángel REESEie ADOB: [birth year] (54 yo F)Acc No.[id number]:11/21/2024 Patient: Rere DICKSON :1970 A ge:54 Y S ex:Female Address:[address] [place] [address] [place] [address] Subjective: * Chief Complaints: * p ossible [...] Codes: * true * Date: Generated for Aleshiai alayna/Shaguftag/eTransmitting on: 02/17/2024 03:32 PM EST
--- OUTSIDE RECORDS SUMMARY | 2024-11-22 03:47 | XMS_ITS ---
Author Organization [facility] Address [address] [place] [address] Care Team Providers Care Quarter Lining Smoother Name Role Phone Michaelle Rivas Primary Care Provider [phone] Champ Quiroz [phone] Encounters Encounter Location Date Provider Diagnosis [facility] [address] [place] [address] 11/22/2024 Michaelle Rivas Diarrhea, unspecifie d type R19.7 Assessments Encounter Date Diagnosis (ICD Code) Assessment Notes Treatment Notes Treatment Clinical Notes Section Notes 11/22/2024 Diarrhea, unspecified type (ICD-10 - R19.7) Plan Of Treatment Pending Test Test Name Order Date M-C. Diff Toxin Assay 11/22/2024 Progress Notes * ELSA Rere ADOB: [birth year] (54 yo F)Acc No.[id number]:11/22/2024 Patient: Rere DICKSON :1970 A ge:54 Y S ex:Female Address:[address] [place] [address] [place] [address] Subjective: * Chief Complaints: * * Medical History: * Surgical History: * Hospitalization/Major Diagno stic Procedure: * Medications: Objective: * Vitals: * Physical Examination: Assessment: * Assessment: 1. D iarrhea, unspecified type - R19.7 Plan: * Treatment: * Procedure Codes: * true * Date: Generated for Little catalan/Fior/Jericho on: 02/17/2024 03:33 PM EST
--- OUTSIDE RECORDS SUMMARY | 2024-11-22 10:15 | XMS_ITS ---
Author Organization [facility] Address [address] [facility] [address] [place] [address] Care Team Providers Care Loan Reviewer Name Role Phone Michaelle Rivas Primary Care Provider [phone] Champ Quiroz Unavailable [phone] Allergies Allergen (clinical drug ingredient) Drug/Non Drug [...] Encounters Encounter Location Date Provider Diagnosis [facility] [place] [address] [facility] [address] [place], [place] [address] 11/22/2024 Michaelle Rivas Acute bilateral low back [...] Up: pendinh C. Diff t oxin, Reason: Progress Notes * Miguel Ángel REESEie ADOB: [birth year] (54 yo F)Acc No.[id number]:11/22/2024 Progress Notes Patient: Rere DICKSON Provider: Chelle Rivas APRN :1970 A ge:54 Y S ex:Female Date:11/22/2024 Address:[address] [place] [address] [id number] Subjective: * Chief Complaints: * 1 . [...] 01/2022, - heart attach 04/30/2024-06/28/24, Septic 07/24/2024, [facility]- abd pain 07/2024, 09/2024. * Family [...] active: no. Travel outside [place]: no. 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 * Medications: T aking Aspirin 81 81 [...] * G lucose neg * Génesis Vickers 11/23/19 25 04:09:29 PM EDT > ?Imaging: [...] URINALYSIS, Modifiers: QW * Follow Up: p endinh C. Diff toxin * * Sign off status: Completed true * Provider: Chelle Rivas APRN Date: Generated for Little catalan/Faxing/eTransmitting on: 1 02/17/2024 03:33 PM EST History and Physical [...]
--- OUTSIDE RECORDS SUMMARY | 2024-12-05 09:15 | XMS_ITS ---
Author Organization [facility] Address [address] [place] [address] Care Team Providers Care Dust Collector Name Role Phone Michaelle Rivas Primary Care Provider Champ Quiroz Unavailable [phone] Allergies Allergen (clinical drug ingredient) Drug/Non Drug Allergy documented on EMR Reaction Allergy Type Onset Date Status LATEX GLOVES (uncoded) Unknown Allergy Active acetaminophen / oxycodone Percocet stomach upset, sweating Drug Allergy Active REASON FOR VISIT [facility] D/C 11/26/2024, still having burning in [...] jl Encounters Encounter Location Date Provider Diagnosis [facility] [place] [address] [facility] [address] [place] [address] 12/05/2024 Champ Quiroz Atherosclerosis of [place] coronary artery of [place] heart without angina pectoris I25.10 ; 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 She thinks this [...] 12/05/2024 Treatment Notes Assessment Notes Atherosclerosis of [place] co ronary artery of [place] heart without angina pectoris Discussed patient's chest [...] outside and takes a walk and the air drier air hits her lungs. She thinks this [...] Appt Details Follow Up: 2 Weeks, Reason: Progress Notes * Rere REESE ADOB: [birth year] (54 yo F)Acc No.[id number]:12/05/2024 HOSP F/U Patient: Rere DICKSON Provider: Dayana Quiroz MD :1970 A ge:54 Y S ex:Female Date:12/05/2024 Address:[address] [place] [address] S , [id number] Pcp:Michaelle Rivas Subjective: * Chief Complaints: * 1 . [facility] D/C 11/26/2024. 2. still having burning in her chest (heartburn) Famotidine is not working. * HPI: I ntrim History: Transition of care visit from hospital D ate of admission to hospital: 1 , D ate of receipt of hospital admission report: ,?Date of discharge from hospital: , D ate of receipt of hospital discharge summary: , D ischarge medications reviewed and reconciled from hospital: M edications left unchanged. Patient is here for hospital discharge transitional care visit. Admitted at [facility] on dates noted above. Briefly, was admitted for chest pain, found to have reproducible chest pain, ruled out for [place], cardiology consult. [facility] deferred heart cath. She has an appointment with her regular it infrastructure project manager at . She was not changed in [...] disease, status post CABG May 08 at [facility], Sepsis, bowel ischemia and colostomy April/2024 at [facility], Colitis. * Surgical History: l t rotator cuff 2020, rt hand surgery 01/2023, colon resection 04/30/24. * Hospitalization/Major Diagno stic Procedure: H [facility] 01/2022, [facility]- heart attach 04/30/2024-06/28/24, Septic 07/24/2024, [facility]- abd pain 07/2024, 09/2024, [facility] 11/2024. * Family History: F ather: [...] active: no. Travel outside [place]: no. 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 Tobacco Control (Standard) T obacco use: [...] Assessment: * Assessment: 1. A therosclerosis of [place] coronary artery of [place] heart without angina pectoris - I25.10 (Primary) [...] outside and takes a walk and the air drier air hits her lungs. She thinks this [...] Modifiers: 25 , 1111F [facility] MED/CURENT MED MERGE, 31409 DEMONSTRATE USE MDI/NEB * Follow Up: 2 Weeks * * Sign off status: Completed true * Provider: Dayana Quiroz MD Date: Generated for Little catalan/Fior/eTransmitting on: 02/17/2024 03:33 PM EST History and Physical Notes * HPI (History of Present Illness) Category Sub-Category Detail Notes Category Not es [place] History Transition of care visit from hospital Date of admission to hospital:: 11/24/2024 Patient is here for hospital discharge transitional care visit. Admitted at [facility] on dates noted above. Briefly, was admitted for chest pain, found to have reproducible chest pain, ruled out for [place], cardiology consult. [facility] deferred heart cath. She has an appointment with her regular it infrastructure project manager at . She was not changed in [...]
[2024-12-17] VITALS (18 sets, daily range): BP systolic 108–167; BP diastolic 57–99; PULSE 74–95; RESP 14–20; TEMP 36.1–36.8; O2SAT 93–100; BMI 25.5; BMI 23.0
--- NOTE | 2024-12-17 15:17 | ECG_ITS ---
APPROVED REPORT Exam: Resting ECG HR:85 bpm ECG Measurements Heart Rate 85 AXES TX 146 P 71 QRSd 85 QRS 70 QT 411 T 93 QTc [address] DEVIATION AND MODERATE T-WAVE ABNORMALITY, CONSIDER ANTEROLATERAL ISCHEMIA [-0.1+ mV T-WAVE IN V3-V6] ABNORMAL ECG UNCONFIRMED REPORT ST depressions in leads V2, V3, V4, V5 and V6. This is changed from previous EKGs. Concerning for anterolateral STEMI Electronically signed by : BUZZ BASSETT, 12/17/2024 22:17:51
--- OUTSIDE RECORDS SUMMARY | 2024-12-17 15:32 | XMS_ITS | Clinical Summary ---
Author Organization [facility] Address [address] [place] [address] Care Team Providers Care Family Day Carer Name Role Phone Provider, No Known Primary Care Provider [phone] Allergies No known active allergies Medications propranolol [...] 11/03/2019 INFLUENZA VACCINE 09/14/2024 Insurance Care Teams Family Day Carer Relationship Specialty Start Date End Date Provider, No Known [place] [id number] PCP - General 01/12/16
--- OUTSIDE RECORDS SUMMARY | 2024-12-17 15:33 | XMS_ITS | Patient Health Record ---
Author Organization [facility] Address [address] [place] [address] Care Team Providers Care Visual Merchandising Associate Name Role Phone Michaelle Rivas Primary Care Provider Champ Quiroz Unavailable [phone] Migration, Provider Unavailable Unavailable Allergies Allergen (clinical drug ingredient) Drug/Non Drug Allergy documented on EMR Reaction Allergy Type Onset Date Status LATEX GLOVES (uncoded) Unknown Allergy Active acetaminophen / oxycodone Percocet stomach upset, sweating Drug Allergy Active Results Component Value Reference Range Notes X ray : Chest Reviewed date:10/19/2024 08:17:12 AM Interpretation: Performing Lab: Notes/Report: M-Complete Blood Count Auto Diff Reviewed date:11/22/2024 [...] Not Detected NotDetected SAPOVIRUS Not Detected NotDetected Urinalysis Reviewed date:11/22/2024 04:57:22 PM Interpretation: Performing Lab: Notes/Report: Color/Clarity yellow Leuk trace Nitrite neg Urobili 0.2 Protein neg pH 6.0 Blood neg Sp. Gr. 1.015 Ketone neg Bili neg Glucose neg COMPREHENSIVE METABOLIC PANE L (75755) Reviewed date:09/03/2024 09:41:31 AM Interpretation: Performing Lab:[facility], [facility] [address], [facility] [place] Bro Notes/Report: NON-FASTING; NON-FASTING GLUCOSE 104 [...] date:09/03/2024 09:41:31 AM Interpretation: Performing Lab:[facility], [facility], [place] Wil Henri Bro Notes/Report: NON-FASTING; NON-FASTING WHITE BLOOD CELL [...] MPV 10.0 7.5-12.5 fL ABSOLUTE NEUTROPHILS 4948 1116-6617 cells/uL ABSOLUTE LYMPHOCYTES 2503 850-3900 cells/uL ABSOLUTE MONOCYTES 655 200-950 cells/uL ABSOLUTE EOSINOPHILS 202 15-500 cells/uL ABSOLUTE BASOPHILS 92 0-200 cells/uL NEUTROPHILS 58.9 LYMPHOCYTES 29.8 MONOCYTES 7.8 EOSINOPHILS 2.4 BASOPHILS 1.1 Medications Medication SIG (Take, Route, Frequency, Duration) Notes Start Date End Date Status traZODone HCl 100 MG 1 tablet at bedtime as needed Orally Once a day; Duration: 30 days 07/30/2024 Active Primidone 50 MG 1 tab(s) orally twic e a day; Duration: 90 days Active buPROPion HCl ER (XL) 300 MG 1 tab(s) or ally every 24 hours; Duration: 30 days Active Breztri Aerosphere 160-9-4.8 MCG/ACT 2 puffs Inhalation Twice a day 12/05/2024 Active Metoprolol Tartrate 25 MG 1/2 tab Orally Twice a day; Duration: 14 days Active hydrOXYzine HCl 10 MG 1 tab orally every 8 hours; Duration: 30 days prn Active Citalopram Hydrobromide 40 MG 1 tab(s) orally once a day; Duration: 90 days Active Biotin 1000 MCG 1 tablet Orally Once a day; Duration: 90 days 12/05/2024 Active Combivent Respimat 20-100 MCG/ACT INHALE 1 PUFF BY MOUTH 4 TIMES DAILY; Duration: 30 days prn Active Methocarbamol 750 MG 1 tablet Orally [...] bid before breakfast and supper t Active predniSONE 20 MG 1 tablet with food o r milk Orally Once a day; Duration: 7 days 11/22/2024 Active Immunizations Vaccine Route Administration Date Status Comme nts ZZ IM Intramuscular 10/15/2006 Administered Social History Tobacco Use: Social History Observation Description Date Details (start date - stop date) Former Smoker NA - NA Tobacco Control (Standard) Question Answer Notes Tobacco use: Former smoker How long has it been since you last smoked? 6-12 months Problems Problem Type SNOMED Code ICD Code Onset Dates Problem Status W/U Status Risk Notes Problem Generalized anxiety disorder (42937189) Generalized anxiety disorder (F41.1) Active confirmed Problem Primary insomnia (0351996) Primary insomnia (F51.01) Active confirmed Problem Psychophysiologic insomnia (261720420) Psychophysiologic insomnia (F51.04) Active confirmed Problem Essential tremor (886036096) Essential tremor (G25.0) Active confirmed Problem Chronic rhinitis (20487747) Chronic rhinitis (J31.0) Active confirmed Problem Panlobular emphysema (2540559) Panlobular emphysema (J43.1) Active confirmed Problem Left side sciatica (518183140612667) Sciatica, left side (M54.32) Active confirmed Problem Sciatica (38548872) Lumbago with sciatica, right side (M54.41) Active confirmed Problem Sciatica (34681315) Lumbago with sciatica, left side (M54.42) Active confirmed Problem Colostomy present (031234304) Colostomy status (Z93.3) Active confirmed Problem Mixed anxiety and depressive disorder (477972105) Depression with anxiety (F41.8) Active confirmed Problem Anxiety (23821138) Anxiety (F41.9) Active confi rmed Problem Vitamin B12 deficiency (non anemic) (79243517) B12 deficiency (E53.8) Active confirmed Problem Acute exacerbation of chronic obstructive airways disease (929893839) COPD exacerbation (J44.1) Active confirmed Problem Atherosclerosis of coronary artery without angina pectoris (662005589700445) Atherosclerosis of [place] coronary artery of [place] heart without angina pectoris (I25.10) Active confirmed Problem Disorder of skin AND/OR subcutaneous tissue (16843611) Skin lesions (L98.9) Active confirmed Vital Signs Heart Rate 58 /min 12/05/2024 jl Temperature 97.8 degrees Fahrenheit 12/05/2024 jl Blood pressure diastolic 60 mm Hg 12/05/2024 jl Height 5 ft 1 in in 12/05/2024 jl Blood pressure systolic 108 mm Hg 12/05/2024 jl Weight 126.4 lbs 12/05/2024 jl BMI 23.88 kg/m2 12/05/2024 jl Encounters Encounter Location Date Provider Diagnosis [facility] [address] [address] 05/19/2024 Provider Migration Depression with anxiety F41.8 and COPD exacerbation J44.1 [facility] [place] [address] [address] 12/29/2023 Champ Quiroz Acute bronchitis, unspecified organism J20.9 ; Subacute cough R05.2 and Sciatica, left side M54.32 [facility] [place] [address] [address] 04/20/2024 Michaelle McNees Depression with anxi ety F41.8 and COPD exacerbation J44.1 [facility] [address] [address] 07/02/2024 Champ Zunildason Tremor R25.1 ; Atherosclerosis of [place] coronary artery of [place] heart without angina pectoris I25.10 ; Anxiety F41.9 ; Hospital discharge follow-up Z09 ; Dysuria R30.0 and Colostomy present Z93.3 [facility] [address] [place] [address] 07/18/2024 Champ Quiroz Pelvic pain in femal e R10.2 and Panlobular emphysema J43.1 [facility] [address] [facility] [address] [place] [address] 07/30/2024 Champ Quiroz C. difficile colitis A04.72 ; Primary insomnia F51.01 ; Colostomy status Z93.3 and Hospital discharge follow-up Z09 [facility] [address] [facility] [address] [place] [address] 08/20/2024 Champ Quiroz Atherosclerosis of [place] coronary artery of [place] heart without angina pectoris I25.10 ; Colostomy status Z93.3 and Hospital discharge follow-up Z09 [facility] [address] [facility] [address] [place] [address] 08/30/2024 Michaelle McNees Vertigo R42 ; C. difficile colitis A04.72 and Atherosclerosis of [place] coronary artery of [place] heart without angina pectoris I25.10 [facility] [address] [facility] [address] [place], [place] [address] 10/01/2024 Champ Quiroz Generalized anxiety disorder F41.1 ; Atherosclerosis of [place] coronary artery of [place] heart without angina pectoris I25.10 ; Colostomy status Z93.3 and Hospital discharge follow-up Z09 [facility] [address] [facility] [address] [place] [address] 10/11/2024 Michaelle McNees Acute cough R05.1 [facility] [address] [facility] [address] [place] [address] 11/12/2024 Champ Quiroz Subacute cough R05.2 and Chronic rhinitis J31.0 [facility] [address] [facility] [address] [place] [address] 11/22/2024 Michaelle McNees Acute bilateral low back pain without sciatica M54.50 ; Lower abdominal pain R10.30 and History of Clostridium difficile infection Z86.19 [facility] [address] [place] [address] 12/05/2024 Champjenniffer Quiroz Atherosclerosis of [place] coronary artery of [place] heart without angina pectoris I25.10 ; 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 ; Panlobular emphysema J43.1 ; Hospital discharge follow-up Z09 and Primary insomnia F51.01 [facility] [address] [place] [address] 02/06/2024 Michaelle McNees [facility] [address] [place] [address] 04/20/2024 Michaelle McNees [facility] [address] [place] [address] 07/20/2024 Michaelle McNees Hypokalemia E87.6 [facility] [address] [place] [address] 07/20/2024 Michaelle McNees [facility] [address] [place] [address] 07/24/2024 Michaelle McNees [facility] [address] [place] [address] 08/09/2024 Michaelle McNees [facility] [address] [facility] [address] [place] [address] 09/03/2024 Michaelle McNees [facility] [address] [place] [address] 09/25/2024 Michaelle McNees Primary insomnia F51 .01 and Enterocolitis K52.9 [facility] [address] [place] [address] 09/25/2024 Champ Quiroz Primary insomnia F51 .01 and Enterocolitis K52.9 [facility] [address] [place] [address] 10/05/2024 Michaelle McNees [facility] [address] [place] [address] 10/11/2024 Michaelle McNees [facility] [address] [place] [address] 11/21/2024 Michaelle McNees Acute abdominal pain R10.9 and Diarrhea, unspecified type R19.7 [facility] [address] [place] [address] 11/22/2024 Michaelle McNees Diarrhea, unspecifie d type R19.7 [facility] [address] [place] [address] 11/23/2024 Michaelle McNees [facility] [address] [place] [address] 11/26/2024 Champ Quiroz Assessments Encounter Date Diagnosis (ICD Code) Assessment [...] be helpful for her 07/02/2024 Atherosclerosis of [place] coronary artery of [place] heart without angina pectoris (ICD-10 - I25.10) Status post bypass. On appropriate medication 07/18/2024 Panlobular emphysema (ICD-10 - J43.1) Stable. Off cigarettes, continue inhalers. 07/18/2024 Pelvic pain in female (ICD-10 - R10.2) MANAGER STRATEGIC evaluation. Possible ongoing problems from catheter but [...] has no pain, fever or abdominal swelling 08/20/2024 Colostomy status (ICD-10 - Z93.3) Infection resolved, following up with GI/GI surgery 08/20/2024 Atherosclerosis of [place] coronary artery of [place] heart without angina pectoris (ICD-10 - I25.10) Overall doing fairly well. No changes in plan. Stable from a vascular standpoint. 08/30/2024 Vertigo (ICD-10 - R42) Reassurance. Discussed [...] - A04.72) Extensive review of [facility] and [facility] records Abdomen soft, nontender Continue Vanc Keep Fu with Dr. Troncoso [facility] 09/25/2024 Primary insomnia (ICD-10 - [...] with the anxiety. We refered her to Trent Moore and the Medicare office to see if she can get in contact with a therapist and a social professionals. 10/01/2024 Atherosclerosis of [place] coronary artery of [place] heart without angina pectoris (ICD-10 - I25.10) Overall stable post bypass. On appropriate medications. 10/11/2024 Acute cough (ICD-10 - R05.1) Reassurance CXR is normal Likely related to exac of her COPD Discussed supportive care with rest, increased hydration, dexamethasoine IM and inhalers Return precautions discussed 11/12/2024 Chronic rhinitis (ICD-10 - J31.0) Azelastine/Flonas e combination therapy for rhinitis and symptomatic relief. 11/12/2024 Subacute cough (ICD-10 - R05.2) Dexamethasone for symptomatic relief of cough. Continue inhalers. 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 Xray pending 12/05/2024 Atherosclerosis of [place] coronary artery of [place] heart without angina pectoris (ICD-10 - I25.10) Discussed patient's chest pain and hospital workup with her. She does not think that her pain is from her heart. She also does not think it is from reflux. She thinks it is from her lungs. See notes below. 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 She thinks this is the cause of her chest pain. Will trial triple inhaler, gave her samples, demonstrated how to use these appropriately and will follow-up 11/22/2024 History of Clostridium difficile infection (ICD-10 - Z86.19) Diarrhea has resolved. Does not clinically appear to have an active C.Diff infection. C. Diff toxin is pending. Will treat based on toxin results unless patient becomes symptomatic prior to results. Return precautions discussed 11/21/2024 Diarrhea, unspecified type (ICD-10 - R19.7) 10/01/2024 Colostomy status (ICD-10 - Z93.3) Hopefully will have reversal soon. Continue to follow with GI. No changes in plan 09/25/2024 Enterocolitis (ICD-10 - K52.9) 09/25/2024 Enterocolitis (ICD-10 - K52.9) 08/30/2024 Atherosclerosis of [place] coronary artery of [place] heart without angina pectoris (ICD-10 - I25.10) Decrease metoprolol for low normal blood pressure and fatigue Keep FU with [facility] cardiology next week 12/29/2023 Sciatica, left side (ICD-10 - M54.32) Injection as noted. I think she would benefit from SI joint evaluation or even lumbar facet injections versus comprehensive pain care evaluation. This referral will be made 08/20/2024 Hospital discharge follow-up (ICD-10 - Z09) Personally reviewed H&P and discharge summary as available from hospital discharge documentation. Reviewed pertinent labs and test done in the hospital. Personally reconciled medication. 07/30/2024 Colostomy status (ICD-10 - Z93.3) Discussed [...] updated. Her medication list has been reconcilled. 12/05/2024 Hospital discharge follow-up (ICD-10 - Z09) Personally reviewed H&P and discharge summary as available from hospital discharge documentation. Reviewed pertinent labs and test done in the hospital. Personally reconciled medication. 12/05/2024 Primary insomnia (ICD-10 - F51.01) 07/02/2024 Dysuria (ICD-10 - R30.0) Trial of Pyridium. Probable post cath issues 07/02/2024 Colostomy present (ICD-10 - Z93.3) Stable. Continue follow-up 12/05/2024 Other Patient notes insomnia is better but not where she would like to be on trazodone 50, will bump up to 100 Plan Of Treatment Pending Test Test Name Order Date MRI : Lumbosacral Spine 05/06/2006 MRI : Lumbosacral Spine 06/17/2006 X ray : Spines, Lumbosacral 11/22/2024 CT Scan : Abdomen, with contrast CT Scan : Abdomen, with contrast 007 N-cbc 10/13/2006 MRI : Coccyx 06/17/2006 Mammogram : Bilateral 12/08/2021 M-Diarrhea Panel, PCR 01/25/2022 M-Diarrhea Panel, PCR 12/31/2022 M-C. Diff Toxin Assay 11/22/2024 Physical Therapy Eval and Treat 10/29/19 23 Future Test Test Name Order Date BASIC METABOLIC PANEL (22084) 07/23/2024 MAGNESIUM (622) 07/23/2024 Insurance Providers Payer Name Payer Address Payer Phone Subscriber Number Group Number Insured Name Patient Relationship to Insured Coverage Start Date Coverage End Date [employer] [address] [address] [place] [address] [id number] Rere Reese Self - patient is [...] mg Dexamethasone 4mg Injection 10/11/2024 4 mg Dexamethasone 4mg Injection 11/12/2024 4 mg TRIAMCINOLONE 03/15/2022 1 mL Medical (General) History Medical History History ICD Code hormone replacement therapy depression copd asthma smoker tremors Coronary artery disease, status post CAB G May 08 at [facility] Sepsis, bowel ischemia and colostomy Mar at [facility] colitis Surgical History Surgery Date(Month/Year) lt rotator cuff 2020 rt hand surgery 01/2023 colon resection 04/30/24 Hospitalization History Reason Date(Month/Year) [facility] 11/2024 09/2024 [facility]- abd pain 07/2024 Septic 07/24/2024 - heart attach 04/30/2024-06/28/24 [facility] 01/2022
--- NOTE | 2024-12-17 15:35 | HMH.EDCP ---
Discharge Plan Disposition Patient Disposition: Admitted Prescriptions Prescriptions: No Action metoprolol tartrate 25 mg tablet 12.5 mg PO BID Qty: 30 5RF trazodone 50 mg Tablet 50 mg PO HSP PRN (Reason: Insomnia) methocarbamol 750 mg tablet 750 mg PO Q6HP PRN (Reason: Muscle Spasm) fluticasone propionate 50 mcg/actuation spray,suspension 1 spray INTRANASAL DAILY Patient Comments: USE 1 SPRAY(S) IN EACH NOSTRIL ONCE DAILY ondansetron 4 mg tablet,disintegrating 4 mg PO Q8HP PRN (Reason: nausea and vomiting) famotidine 20 mg Tablet 20 mg PO BID 30 Days Qty: 60 0RF primidone 50 mg tablet 50 mg PO BID Patient Comments: TAKE 1 TABLET BY MOUTH TWICE DAILY FOR 90 DAYS citalopram 40 mg tablet 40 mg PO DAILY hydroxyzine HCl 10 mg tablet 10 mg PO Q8HP PRN (Reason: Anxiety) Patient Comments: TAKE 1 TABLET BY MOUTH EVERY 8 HOURS NEEDED FOR 15 DAYS bupropion HCl 300 mg tablet extended release 24 hr 300 mg PO DAILY Patient Comments: TAKE 1 TABLET BY MOUTH EVERY 24 HOURS aspirin 81 mg tablet,chewable 81 mg PO DAILY rosuvastatin 40 mg tablet 40 mg PO HS Referrals Follow up/Referrals: Champ Quiroz MD [Primary Care Provider, Internal Medicine] - See instructions Clinical Impressions Clinical Impression: ST elevation (STEMI) myocardial infarction Print Language Print Language: Amharic Discharge ED Provider: Parvez Arauz HPI General Stated Complaint: chest pain Time Seen by Provider: 12/17/24 15:25 History of Present Illness HPI narrative: Rere Reese is a 54y female 54-year-old female with a history of CABG earlier this year who presents to the emergency department for worsening chest pain. Patient states that since her CABG, she has had burning in her chest, however over the last several days, it has become more severe and radiating to her left arm. She takes daily aspirin took 2 this morning. She does not take a blood thinner. She recently returned from a trip from [place]. She states that she was seen by her driver merchandiser on Tuesday and was told that she needs an outpatient cath but has not scheduled it yet Related Data Home Medications ?Medication ?Instructions ?Recorded ?Confirmed citalopram 40 mg tablet 40 mg PO DAILY 12/23/23 12/10/24 primidone 50 mg tablet 50 mg PO BID 12/23/23 12/10/24 bupropion HCl 300 mg 24 hr tablet, 300 mg PO DAILY 05/01/24 12/10/24 extended release hydroxyzine HCl 10 mg tablet 10 mg PO Q8HP PRN Anxiety 05/01/24 12/10/24 aspirin 81 mg chewable tablet 81 mg PO DAILY 07/21/24 12/10/24 rosuvastatin 40 mg tablet 40 mg PO HS 07/21/24 12/10/24 trazodone 50 mg tablet 50 mg PO HSP PRN Insomnia 08/07/24 12/10/24 fluticasone propionate 50 1 spray intranasal DAILY 11/24/24 12/10/24 mcg/actuation nasal spray,suspension methocarbamol 750 mg tablet 750 mg PO Q6HP PRN Muscle Spasm 11/24/24 12/10/24 ondansetron 4 mg disintegrating 4 mg PO Q8HP PRN nausea and 11/24/24 12/10/24 tablet vomiting Previous Rx's ?Medication ?Instructions ?Recorded metoprolol tartrate 25 mg tablet 12.5 mg (1/2 x 25 mg) PO BID #30 09/04/24 tabs famotidine 20 mg tablet 20 mg PO BID 30 days #60 tabs 11/26/24 Allergies Allergy/AdvReac Type Severity Reaction Status Date / Time No Known Allergies Allergy Verified 12/10/24 15:15 [facility] Disclaimer: The information contained in this section may have been updated after the patient was seen, as this information can be updated by other users. Medical History Peripheral arterial disease Hyperlipidemia Angina pectoris Bleeding nose Dyspnea Cough Colostomy in place Heart attack Depression Anxiety History of pleurisy Hemorrhoid Essential tremor Endometriosis Surgical History History of hand surgery History of X3 Hx of cholecystectomy H/O rotator cuff surgery LEFT History of hysterectomy Family History Other Essential tremor Family history of heart disease Social History Smoking Status: Never smoker alcohol intake: never substance use type: denies use current occupational status: unemployed and retired Travel in the last 8 weeks?: Inside the [place] household members: family housing: house caffeine: Yes Have you lived/traveled outside US in past 30 days?: No Contact w/someone who lives/traveled outside US past 30 days?: No Exposure to someone with infectious disease in past 14 days?: No Do you have a fever (greater than 100.4 F or 38 C)?: No Have you tested positive for COVID-19?: No Exposed to someone with COVID-19 in past 14 days?: No Do you have a sore throat?: No Do you have a cough?: No Do you have any weakness?: No Do you have any diarrhea?: No Are you experiencing any unusual bleeding?: No Do you have any muscle aches/pain?: No Do you have any abdominal pain?: No Are you experiencing loss of taste or smell?: No Other Medical History Have you received the Flu Vaccine for this season: No Have you received the Pneumonia Vaccine: No ROS Obtained: Yes Systems reviewed as appropriate & no additional complaints except as documented Physical Exam General General appearance: alert, in no apparent distress and anxious Head Head exam: atraumatic Eye Eye exam: Present normal appearance ENT ENT exam: Present normal external ear exam Neck Neck exam: Present full ROM Chest Chest inspection: Present symmetric chest wall rise Respiratory Respiratory exam: Present normal lung sounds bilaterally; Absent respiratory distress, wheezes or stridor Cardiovascular Cardiovascular exam: Present regular rate and normal rhythm Abdominal Exam Abdominal exam: Present soft; Absent tenderness or guarding Extremities Exam Extremities exam: Present normal inspection Back Exam Back exam: Present normal inspection Neurological Exam Neurological exam: Present alert and oriented X3 Psychiatric Psychiatric exam: Present normal affect Skin Skin exam: Present warm and dry HEART Score HEART Score HEART Score assessment performed?: No Critical Care Critical Care Time Critical Care Time: Yes Attestation: On 12/17/24, the high probability of a clinically significant, sudden or life threatening deterioration of the following system(s) required my full and direct attention, intervention and personal management. The time I documented below is in addition to time spent performing reported procedures but includes the following listed in this critical care notation. Total Time Total Critical Care Time: 35 Medical Decision Making Supa Inquiry Pt receiving controlled substance: No ECG Data Tracing #1: Attestation: I reviewed this ECG and interpreted as documented below: ECG Narrative: Normal sinus rhythm. ST depressions in V2, V3, V4, V5 and V6. Patient did have depressions in V2 on previous EKG, however additional depressions are new. No ST elevation is noted. No reciprocal changes. QTc 454 MDM Narrative Medical Decision Narrative: Rere Reese is a 54y female 54-year-old female with a history of CABG earlier this year who presents to the emergency department for worsening chest pain. Patient states that since her CABG, she has had burning in her chest, however over the last several days, it has become more severe and radiating to her left arm. She takes daily aspirin took 2 this morning. She does not take a blood thinner. She recently returned from a trip from [place]. She states that she was seen by her driver merchandiser on Tuesday and was told that she needs an outpatient cath but has not scheduled it yet. On arrival, patient blood pressure is normal, heart within norm limits, maintaining appropriate oxygen saturation on room air. On physical exam, she is very anxious. She has a well-healed midline surgical scar. Cardiopulmonary exam without murmur or rubs. No wheezing, rales or rhonchi. Some patient's EKG, which has new T wave inversions and ST depression in V3, V4, V5 and V6 with persistent depressions in V2 but no reciprocal changes, I feel that this warrants urgent cardiology evaluation for concern for cardiac ischemia/STEMI. I immediately spoke with Dr. Bentley who came to the bedside immediately. He evaluated the patient and stated that she needs to go to [facility] immediately and called the [facility] Coordinator and she immediately went up to [facility] for intervention prior to the LAD or mid being given.
--- NOTE | 2024-12-17 15:40 | IR_ITS ---
APPROVED REPORT Patient Location: Inpatient Core Man: SOLE Feliciano RT (R) PROCEDURES Left heart catheterization Left ventriculogram Selective coronary angiogram Selective engagement left internal mammary artery to the LAD Selective engagement of saphenous vein graft to the ramus intermedius which then skipped to the first obtuse marginal artery Selective engagement of saphenous vein graft to the right coronary Drug-eluting stent deployment to a chronically occluded left main artery Drug-eluting stent deployment to the proximal mid and distal LAD in a continuous manner INDICATION Acute non-ST elevation myocardial infarction, Coronary artery disease, Chronically occluded left main artery, Acute loss of FRIEND graft Informed consent was obtained prior to the procedure. COMPLICATIONS NONE Estimated Blood Loss: LESS THAN 10 ML TECHNIQUE One percent lidocaine used to anesthetize the right groin. The right femoral artery was accessed via the Seldinger technique and a 5 British sheath was placed in the right femoral artery. A JL 4, JR4 catheter were used to perform left heart catheterization, left ventriculogram selective coronary angiography. A JR4 catheter and AL-1 catheter was used to perform selective engagement of the saphenous vein graft to the ramus intermedius and obtuse marginal artery as well as selective engagement of the free FRIEND graft to the LAD and selective engagement of saphenous vein graft to the right coronary artery. At the end of the diagnostic angiogram therapeutic heparin was administered giving a therapeutic ACT and the 5 British sheath was exchanged for a 6 British sheath. A JL 3.5 guide catheter was placed in left main artery followed by Choice PT extra-support wire pushed through the chronic occlusion and placed into the LAD. A 3.5 x 18 mm [place] frontier stent was deployed in the ostial left main artery extending into the proximal LAD and deployed at 18 paula. An additional 3.5 mm x 15 mm [place] frontier stent was placed distal to the for stent is still overlapping and deployed at 18 paula. The balloon was brought back and deployed at 24 paula to measure the 2 stents. A 2.5 x 38 mm [place] frontier stent was placed distal to the second stent yet still overlapping and deployed at 18 paula. An additional 225 x 22 mm [place] frontier stent was placed distal to the third stent yet still little overlapping and deployed at 18 paula. The balloon was brought back and deployed at 24 and then 26 paula throughout the mesh point and the 2.5 mm stent. DANIEL 0 flow was present before the procedure with DANIEL-3 flow at the end of the procedure. At the end the procedure the apparatus was removed the groin is reprepped closure change sheath was removed good hemostasis was achieved using Perclose device patient was transferred to the postop boarding in stable condition ANGIOGRAPHIC RESULTS The left main artery Distally occluded The left anterior descending artery Scantly backfilled via the saphenous vein graft to ramus intermedius The circumflex artery Negatively occluded The right coronary artery Nondominant yet still large with a proximal concentric 90% stenosis followed by a concentric 80% stenosis followed by distal 90% stenosis The LUBIN ventriculogram reveals 45% ejection fraction with mid anterior apical hypokinesis The left ventricular end-diastolic pressure 25 mmHg Free FRIEND graft to LAD ostially occluded Saphenous graft to ramus intermedius is widely patent as is the skip graft to the first obtuse marginal artery Saphenous vein graft to right coronary artery ostially occluded IMPRESSION Acute loss of free FRIEND graft to LAD Successful opening of a chronically occluded left main artery into the LAD 100% occlusion reduced to 0% as described above Successful reconstruction of the proximal mid and distal LAD critical disease reduced to 0% with 3 drug-eluting stents as described above Interval loss of saphenous vein graft to the right coronary artery/posterior descending artery Persistent severe disease in the proximal right coronary artery and distal right coronary artery PLAN 1. Dual antiplatelet therapy 2. Risk factor modification 3. Control of hypertension 4. LDL less than 55 to be achieved with high intensity statin 5. Patient will be brought back to the Product Technology Scientist in 4 weeks and undergo revascularization of the right coronary artery from the right radial approach 6. Cardiac rehabilitation Electronically signed by : Jd Bentley MD 12/17/2024 17:39:14
--- NOTE | 2024-12-17 15:53 | PC.NURSE ---
1535 - Dr. Bentley @ bedside w/ Dr. Arauz speaking w/ pt 1543 - Pt bilat groins clipped and pt placed in gown. Consent obtained after speaking w/ Dr. Bentley. Zoll pads placed w/ cont monitoring. Pt transported by stretcher by Van Kaye,RN and Johnny MuellerRN.
[2024-12-17] MEDS: LIDOCAINE 1% 10ML MDV 10 ML IJ (15:57)
[2024-12-17] MEDS: 0.9 % SODIUM CHLORIDE 500 ML 25 ML IV (15:58)
[2024-12-17] MEDS: HEPARIN 1,000 UNITS/500ML NS (CATH LAB) 3000 UNIT IV (15:58)
--- NOTE | 2024-12-17 15:58 | EXP.HP ---
History of Present Illness *Admission Date: 12/17/24 *Reason for visit:: Chest pain *History of present illness: Ms. Reese is a 49-year-old female with significant past medical history for coronary artery disease, essential tremor, hemorrhoids, endometriosis, LA, and mesenteric ischemia leading to right hemicolectomy and modified heart post coronary bypass and graft who presents with chest pain. She was just admitted about 3 weeks ago for chest pain, workup was unremarkable at that time and plan for outpatient follow-up with ischemic eval. Was due to see cardiology later this week. States she was in [place] with family when she started having severe pain radiating to her left arm over the past 2 days. Took an extra aspirin this morning. Close this hospital was a critical access hospital and so she drove with her son to [facility] for further management. On evaluation, EKG showed diffuse ST depressions in V2 through 6. Initial troponin 0.28. Taken urgently to the Structural Steel Worker Apprentice. Found to have 2 grafts that had gone down. Received 4 stents to the LAD with reperfusion. Admitted to medicine for further management. Complains of having left chest pain and referred pain into her arm. Denies shimon syncope. Was having some shortness of breath and cough. No nausea or vomiting. Has been compliant with her medications. [facility] Disclaimer: The information contained in this section may have been updated after the patient was seen, as this information can be updated by other users. Medical History Peripheral arterial disease Hyperlipidemia Angina pectoris Bleeding nose Dyspnea Cough Colostomy in place Heart attack Depression Anxiety History of pleurisy Hemorrhoid Essential tremor Endometriosis Surgical History History of coronary artery bypass graft History of colostomy History of hand surgery History of Hx of cholecystectomy H/O rotator cuff surgery History of hysterectomy Family History Other Essential tremor Family history of heart disease Social History Smoking Status: Former smoker tobacco type: cigarettes packs per day: 1 alcohol intake: never substance use type: denies use current occupational status: unemployed and retired Travel in the last 8 weeks?: [place] the [place] household members: family housing: house caffeine: Yes Have you lived/traveled outside US in past 30 days?: No Contact w/someone who lives/traveled outside US past 30 days?: No Exposure to someone with infectious disease in past 14 days?: No Do you have a fever (greater than 100.4 F or 38 C)?: No Have you tested positive for COVID-19?: No Exposed to someone with COVID-19 in past 14 days?: No Do you have a sore throat?: No Do you have a cough?: No Do you have any weakness?: No Do you have any diarrhea?: No Are you experiencing any unusual bleeding?: No Do you have any muscle aches/pain?: No Do you have any abdominal pain?: No Are you experiencing loss of taste or smell?: No Other Medical History Have you received the Flu Vaccine for this season: No Have you received the Pneumonia Vaccine: No Review of Systems Review of Systems Review of systems (narrative): 14 point review of systems performed, pertinent positives and negatives as per [facility] Meds Home Medications and Allergies Home Medications ?Medication ?Instructions ?Recorded ?Confirmed ?Type citalopram 40 mg tablet 40 mg PO DAILY 12/23/23 12/17/24 History primidone 50 mg tablet 50 mg PO BID 12/23/23 12/17/24 History bupropion HCl 300 mg 24 hr tablet, 300 mg PO DAILY 05/01/24 12/17/24 History extended release hydroxyzine HCl 10 mg tablet 10 mg PO Q8HP PRN Anxiety 05/01/24 12/17/24 History aspirin 81 mg chewable tablet 81 mg PO DAILY 07/21/24 12/17/24 History rosuvastatin 40 mg tablet 40 mg PO HS 07/21/24 12/17/24 History trazodone 50 mg tablet 50 mg PO HSP PRN Insomnia 08/07/24 12/17/24 History metoprolol tartrate 25 mg tablet 12.5 mg (1/2 x 25 mg) PO BID #30 09/04/24 12/17/24 Rx tabs famotidine 20 mg tablet 20 mg PO BID 30 days #60 tabs 11/26/24 12/17/24 Rx New Prescriptions to Start Prescriptions: Allergies Allergy/AdvReac Type Severity Reaction Status Date / Time No Known Allergies Allergy Verified 12/10/24 15:15 Exam Data for Last 24 hours Vital signs and Labs for Last 24 Hours: Temp Pulse Resp BP Pulse Ox O2 Del Method 98 F 95 H 19 131/76 99 Room Air 12/17/24 15:43 12/17/24 15:43 12/17/24 15:43 12/17/24 15:43 12/17/24 15:20 12/17/24 15:43 I & O for Last 24 hours: Intake & Output 12/14/24 12/15/24 12/16/24 12/17/24 23:59 23:59 22:59 23:59 Weight 59.421 kg Constitutional Constitutional: mild distress, thin, chronically ill appearing and cooperative *Routine HEENT Exam Head: Present normocephalic and atraumatic Eye: Present EOMI and PERRL ENT: Present mucous membranes moist *Routine Neck Exam Neck: Present supple, full ROM and trachea midline Routine Chest/Breast/Axilla Exam Comments: Well-healed midline scar *Routine Respiratory Exam Respiratory: Present CTA bilaterally, normal respiratory effort, able to speak in complete sentences and symmetric chest movement; Absent rhonchi, wheezes or crackles *Routine Cardiovascular Exam Cardiovascular: Present RRR, Normal S1 and Normal S2 *Routine Abdominal Exam Abdominal: Present soft and ostomy Comments: Ostomy noted to right lower quadrant *Routine Rectal Exam Rectal:: deferred *Routine Genitalia Exam Genitalia:: deferred *Routine Extremities Exam Extremities: Absent cyanosis, clubbing or edema Routine Back/Spine/Pelvis Exam Back/Spine: Present full ROM *Routine Skin Exam Skin: Present intact, cyanosis and normal turgor *Routine Neurological Exam Neurological: Present alert, oriented X3, CN II-XII intact and moving all extremities Routine Psychiatric Exam Psychiatric: Present normal affect, normal thought process, cooperative, good insight and good judgment Assessment and Plan *Assessment and plan (1) NSTEMI (non-ST elevated myocardial infarction): Problem Comment: Type I due to loss/occlusion of grafts Status: Acute Category: Medical Code(s): I21.4 - Non-ST elevation (NSTEMI) myocardial infarction (2) Clostridium difficile carrier: Status: Acute Category: Medical Code(s): Z22.1 - Carrier of other intestinal infectious diseases (3) CAD (coronary artery disease): Status: Acute Category: Medical Code(s): I25.10 - Atherosclerotic heart disease of [place] coronary artery without angina pectoris (4) History of coronary artery bypass graft: Status: Acute Category: Surgical Code(s): Z95.1 - Presence of aortocoronary bypass graft (5) History of right hemicolectomy: Status: Acute Category: Surgical Code(s): Z90.49 - Acquired absence of other specified parts of digestive tract (6) Anxiety: Status: Acute Category: Medical Code(s): F41.9 - Anxiety disorder, unspecified (7) CABG (coronary artery bypass graft) planned: Status: Acute Category: Medical Code(s): Z78.9 - Other specified health status Plan 54-year-old female with extensive cardiac history, CABG in April 2024. History of bowel ischemia status postresection. Presented with chest pain. Found to have NSTEMI. Taken urgently to the Structural Steel Worker Apprentice. Received 4 stents to the LAD. Discussed case with ER physician, request admission after heart cath. I agreed to admit for further care. Initial troponin 0.2. EKG per my review with diffuse ST depressions in V2-6. Will monitor on telemetry overnight. Cardiology to reevaluate the morning. Problems addressed as follows: Unstable angina Type I NSTEMI History of CABG April 2024 ? Presented with chest pain. EKG showed ST depressions diffusely. Initial troponin 0.2. Taken to Structural Steel Worker Apprentice and found to have lost 2 grafts. Received 4 stents to the LAD with improved reperfusion. Started on prasugrel 10 mg daily and aspirin 81 mg daily. - Cardiology to reevaluate in the morning. - Resume home metoprolol to tartrate 12.5 mg twice daily, Crestor 40 mg nightly - Recent echo on 11/05 with normal BiV systolic function, mild RV dilation #History of bowel ischemia with colostomy ? Stable. No evidence of high output state. #GERD ?Continue famotidine 20 mg twice daily #History of C. difficile ? Patient is a known carrier. No high output at this time. Will hold on treatment or testing. ? Consider restarting vancomycin if patient becomes symptomatic. #Anxiety/depression ? Continue home bupropion 300 mg. Primidone 50 mg twice daily, hydroxyzine 10 mg as needed every 8 hours, Full code Heparinized in Structural Steel Worker Apprentice Cardiac diet
[2024-12-17] MEDS: MIDAZOLAM HCL 1MG/ML 5ML VIAL 1 MG IV (16:04)
[2024-12-17] MEDS: FENTANYL 100MCG/2ML VIAL 50 MCG IV (16:04)
[2024-12-17 16:25] LABS: Troponin I 0.28 ng/ml (0.00-0.034)
[2024-12-17] MEDS: HEPARIN 1,000 UNITS/ML 10ML VIAL (CATH LAB) 5000 UNIT IV (16:30)
[2024-12-17] MEDS: PRASUGREL 10MG TAB 60 MG PO (17:13)
--- NOTE | 2024-12-17 17:27 | PC.NURSE ---
arrived to floor by stretcher from yard laborer
[2024-12-17] MEDS: IOPAMIDOL-370 (76%);100ML BOTTLE 230 ML IV (17:30)
[2024-12-17 17:34] LABS: CATHL Activated Clotting Time 181 SEC (74-125)
--- NOTE | 2024-12-17 18:32 | PC.NURSE ---
colostomy noted to R abdomen
[2024-12-17 19:51] LABS: Troponin I 0.54 ng/ml (0.00-0.034)
[2024-12-17] MEDS: ATORVASTATIN 40MG TABLET 80 MG PO (21:38)
[2024-12-17] MEDS: FAMOTIDINE 20MG TABLET 20 MG PO (21:38)
--- NOTE | 2024-12-17 21:44 | ECG_ITS ---
APPROVED REPORT Exam: Resting ECG HR:90 bpm ECG Measurements Heart Rate 90 AXES VT 147 P 55 QRSd 84 QRS 58 QT 414 T 96 QTc [address] DEVIATION AND MODERATE T-WAVE ABNORMALITY, CONSIDER ANTEROLATERAL ISCHEMIA [-0.1+ mV T-WAVE IN V3-V6] ABNORMAL ECG UNCONFIRMED REPORT Electronically signed by : Champ Quiroz MD 12/18/2024 08:47:48
[2024-12-17] MEDS: METOPROLOL TARTRATE 25MG TABLET 12.5 MG PO (21:45)
[2024-12-17] MEDS: CITALOPRAM 40MG TABLET 40 MG PO (21:47)
[2024-12-17] MEDS: LACTATED RINGERS 1000ML 1,000 ML 100 ML IV (22:05)
[2024-12-17] MEDS: diazePAM 10MG/2ML SYRINGE 2.5 MG IV (22:06)
[2024-12-18] VITALS (7 sets, daily range): BP systolic 102–143; BP diastolic 56–92; PULSE 80–94; RESP 12–20; TEMP 36.6–36.9; O2SAT 95–100; BMI 22.7
[2024-12-18] MEDS: HYDROCODONE/APAP 5/325 MG TABLET 2 TAB PO (00:11)
[2024-12-18 06:29] LABS: Hematocrit 30.2 % (37.0-47.0); Hemoglobin 9.7 g/dL (12.2-16.2); Immature Granulocytes % 0.2 %; Mean Corpuscular HGB Conc 32.1 g/dL (31.8-35.4); Mean Corpuscular Hemoglobin 28.4 pg (27.0-31.2); Mean Corpuscular Volume 88.3 fl (81-99); Nucleated Red Blood Cells % 0 %; Platelet Count 342 K/mm3 (142-424); Red Blood Count 3.42 M/mm3 (4.20-5.40); Red Cell Distribution Width-SD 45.1 fL; White Blood Count 10.0 K/mm3 (4.8-10.8)
[2024-12-18 06:36] LABS: Albumin Level 3.6 g/dl (3.5-5.0); Chloride 103 mmol/L (98-107); Potassium 3.5 mmoL/L (3.5-5.1); Sodium 136 mmol/L (136-145)
[2024-12-18 06:38] LABS: Alanine Aminotransferase 15 U/L (12-78); Aspartate Amino Transferase 69 U/L (14-36); Blood Urea Nitrogen 7 mg/dl (7-17); Creatinine Clearance Estimated 78 mL/min (50-200); Creatinine,Serum 0.80 mg/dl (0.52-1.04); Estimated Glomerular Filt Rate 74 ml/min (>60); GFR (African American) 90 ML/MIN (>60)
[2024-12-18 06:39] LABS: Albumin/Globulin Ratio 1.7 (1.1-1.8); Alkaline Phosphatase 80 U/L (38-126); Anion Gap 7.5 mEq/L (5-15); Bilirubin,Total 0.3 mg/dl (0.2-1.3); Calcium 7.9 mg/dl (8.4-10.2); Carbon Dioxide 29 mmol/L (22.0-30.0); Globulin 2.1 g/dL (1.3-3.2); Glucose 91 mg/dl (74-100); Magnesium 1.8 mg/dl (1.6-2.3); Total Protein,Serum 5.7 g/dl (6.3-8.2)
--- NOTE | 2024-12-18 07:53 | PC.NURSE ---
Pt. is alert and orientated x 4. Pt. is on 2 liters of oxygen per N/C. Pt. is status post heart cath 12/17. Pt. had 4 stents placed to the LAD. Pt. had some chest pain last night . EKG done. Pt. with very high anxiety. P. medicated with Valium for the anxiety. Once anxiety was under control Pt. continued to c/o chest wall pain. Medicated as per APR. Pt. up out bed to [facility] to void. Right Femoral cath site with dressing gauze and tegaderm , clean, dry intact. Pt. did not sleep well overnight. Personal items and call serrano in reach. Bed in low and locked position. safety measures in place.
[2024-12-18] MEDS: FAMOTIDINE 20MG TABLET 20 MG PO (08:38)
[2024-12-18] MEDS: PRIMIDONE 50MG TABLET 50 MG PO (08:38)
[2024-12-18] MEDS: ASPIRIN 81MG CHEWABLE TABLET 81 MG PO (08:38)
[2024-12-18] MEDS: PRASUGREL 10MG TAB 10 MG PO (08:38)
[2024-12-18] MEDS: METOPROLOL TARTRATE 25MG TABLET 12.5 MG PO (08:38)
[2024-12-18] MEDS: HYDROCODONE/APAP 5/325 MG TABLET 1 TAB PO (09:35)
--- NOTE | 2024-12-18 09:49 | CA_ITS ---
APPROVED REPORT EXAM: Limited 2D Echocardiogram Drawbench Operator Helper: Lainey Randle CRT Ht: 5 ft 4 in Wt: 136lbs BSA: 1.66 BP: 131/76 mmHg Indications: Stemi, CABG 05/08, Stents x 4 12/17/24 , EF check, EF 55 11/08 M-Mode Dimensions RVDd 2.22 cm (0.9-2.6) LVDd 3.90 cm (3.5-5.7) LVDs 2.79 cm (3.5-5.7) IVSd 1.11 cm (0.6-1.1) PWd 1.22 cm (0.6-1.1) EF (Teich) 55.50% FS 28.50% EDV (Teich) 65.90 mL ESV (Teich) 29.30 mL Other Information Study Quality: Fair Conclusion This is a limited TTE to evaluate for LV systolic function. Limited windows are obtained. The left ventricle is normal in size. There is increased LV wall thickness. There is severe hypokinesis of the anterior, septal, anteroseptal LV mcghee. LVEF is 45%. Electronically signed by : Annette Saldana MD 12/18/2024 12:57:34
--- NOTE | 2024-12-18 09:50 | EXP.CARD.CON ---
History of Present Illness History of Present Illness Consult date: 12/18/24 Requesting physician: Gregg Barth Consult reason: chest pain Chief complaint: STEMI Additional Medical History:: 1. CAD A. 4 Vessel CABG, 05/06/2024, FRIEND to LAD as free graft, SVG to Ramus and OM1, SVG to PDA. B. STEMI with subsequent MILIND to LAD, 12/17/2024 2. Ileostomy placement with right hemicolectomy and modified Santiago's pouch with ostomy due to mesenteric ischemia, approximately 06/2024, Dr. Lidia Troncoso, 3. Ex smoker, quit 03/2024 A. 30 pack year history 4. Hyperlipidemia A. on statin therapy 5. Anxiety and depression History of present illness: 54 yo WF with recent CABG in 04/2024 reports recurrent chest pain over the last month. Symptoms suddenly worse with radiation to left arm over the past 2 days while in [place] with family. Returned to [facility] and subsequently worked up in ER with abnormal EKG and elevated troponins. Taken to public works laborer with discovery of loss of FRIEND to LAD and SVG to RCA. 4 Stents placed to LAD by Dr. Bentley. Plan to return to cath in 4 wks to revascularize the RCA. This AM patient is feeling better but still with uneasy feeling in chest and significant anxiety. IV valium last evening helped. She is rightfully concerned about the rapid loss of her bypass grafts and what that portends for the future. She has quit smoking earlier this year and is not diabetic. She maintains compliance of meds. [facility] Disclaimer: The information contained in this section may have been updated after the patient was seen, as this information can be updated by other users. Medical History Peripheral arterial disease Hyperlipidemia Angina pectoris Bleeding nose Dyspnea Cough Colostomy in place Heart attack Depression Anxiety History of pleurisy Hemorrhoid Essential tremor Endometriosis Surgical History History of coronary artery bypass graft History of colostomy History of hand surgery History of Hx of cholecystectomy H/O rotator cuff surgery History of hysterectomy Family History Other Essential tremor Family history of heart disease Social History Smoking Status: Former smoker tobacco type: cigarettes packs per day: 1 alcohol intake: never substance use type: denies use current occupational status: unemployed and retired Travel in the last 8 weeks?: Inside the [place] household members: family housing: house caffeine: Yes Review of Systems Review of Systems Review of systems:: pertinent systems reviewed and negative unless documented below *Cardiovascular Cardiovascular: Reports chest pain and Reports dyspnea *Respiratory Respiratory: Reports dyspnea Exam Data for Last 24 hours Vital signs and Labs for Last 24 Hours: Temp Pulse Resp BP Pulse Ox O2 Del Method O2 Flow Rate 98.3 F 90 20 143/86 H 100 Nasal Cannula 2.5 12/18/24 07:51 12/18/24 07:51 12/18/24 07:51 12/18/24 07:51 12/18/24 07:51 12/18/24 07:51 12/18/24 07:51 Laboratory Results - last 24 hr 12/17/24 15:30: Troponin I 0.28 H 12/17/24 18:01: Activated Clotting Time 181 H* 12/17/24 19:14: Troponin I 0.54 H 12/18/24 05:31: WBC 10.0, RBC 3.42 L, Hgb 9.7 L, Hct 30.2 L, MCV 88.3, MCH 28.4, MCHC 32.1, RDW 14.0, Plt Count 342, MPV 9.7, Neut % (Auto) 50.8, Lymph % (Auto) 32.6, [place] % (Auto) 12.9 H, Eos % (Auto) 2.6, Baso % (Auto) 0.9, Neut # (Auto) 5.1, Lymph # (Auto) 3.3, [place] # (Auto) 1.3 H, Eos # (Auto) 0.3, Baso # (Auto) 0.1, Sodium 136, Potassium 3.5, Chloride 103, Carbon Dioxide 29, Anion Gap 7.5, BUN 7, Creatinine 0.80, Estimated Creat Clear 78, Estimated GFR 74, Est GFR ( Amer) 90, Glucose 91, Calcium 7.9 L, Magnesium 1.8, Total Bilirubin 0.3, AST 69 H, ALT 15, Alkaline Phosphatase 80, Total Protein 5.7 L, Albumin 3.6, Globulin 2.1, Albumin/Globulin Ratio 1.7 I & O for Last 24 hours: Intake & Output 12/15/24 12/16/24 12/17/24 12/18/24 11:59 10:59 11:59 11:59 Intake Total 1400.000 / 1400.000 Output Total 500 / 500 Balance 900.000 / 900.000 Weight 136 lb 8 oz Constitutional Constitutional: mild distress Comments: Anxious *Routine Respiratory Exam Respiratory: Present CTA bilaterally; Absent wheezes or crackles *Routine Cardiovascular Exam Cardiovascular: Present RRR; Absent murmur, gallop or rubs *Routine Extremities Exam Extremities: Absent edema *Routine Neurological Exam Neurological: Present alert, oriented X3 and CN II-XII intact Meds Home Medications and Allergies Home Medications ?Medication ?Instructions ?Recorded ?Confirmed ?Type citalopram 40 mg tablet 40 mg PO DAILY 12/23/23 12/17/24 History primidone 50 mg tablet 50 mg PO BID 12/23/23 12/17/24 History bupropion HCl 300 mg 24 hr tablet, 300 mg PO DAILY 05/01/24 12/17/24 History extended release aspirin 81 mg chewable tablet 81 mg PO DAILY 07/21/24 12/17/24 History rosuvastatin 40 mg tablet 40 mg PO HS 07/21/24 12/17/24 History metoprolol tartrate 25 mg tablet 12.5 mg (1/2 x 25 mg) PO BID #30 09/04/24 12/17/24 Rx tabs famotidine 20 mg tablet 20 mg PO BID 30 days #60 tabs 11/26/24 12/17/24 Rx prasugrel HCl 10 mg tablet 10 mg PO DAILY 30 days #30 tabs 12/18/24 Rx trazodone 100 mg tablet 100 mg PO HSP PRN Insomnia 12/18/24 12/18/24 History New Prescriptions to Start Prescriptions: prasugrel HCl Saul Morrell Allergies Allergy/AdvReac Type Severity Reaction Status Date / Time No Known Allergies Allergy Verified 12/10/24 15:15 Assessment and Plan *Assessment and plan (1) ST elevation (STEMI) myocardial infarction: Status: Acute Qualifiers: Involved coronary artery: LAD coronary artery Qualified Code(s): I21.02 - ST elevation (STEMI) myocardial infarction involving left anterior descending coronary artery Category: Medical Code(s): I21.3 - ST elevation (STEMI) myocardial infarction of unspecified site (2) Clostridium difficile carrier: Status: Acute Category: Medical Code(s): Z22.1 - Carrier of other intestinal infectious diseases (3) History of coronary artery bypass graft: Status: Acute Category: Surgical Code(s): Z95.1 - Presence of aortocoronary bypass graft (4) History of right hemicolectomy: Status: Acute Category: Surgical Code(s): Z90.49 - Acquired absence of other specified parts of digestive tract (5) Colostomy in place: Status: Acute Category: Medical Code(s): Z93.3 - Colostomy status (6) Chronic anxiety: Status: Acute Category: Medical Code(s): F41.9 - Anxiety disorder, unspecified Plan 1. STEMI due to loss of FRIEND to LAD -peak troponin 0.54 -4 stents placed to [place] L MAIN/LAD with plans to revascularize RCA in 4 wks. -ASA and effient -on metoprolol and statin. -previous 4 V CABG with FRIEND to LAD, SVG to ramus and OM1, SVG to RCA, 04/2024 2. HTN -on metoprolol 3. HLD -on statin -LDL 47 11/26/2024 4. History of right hemicolectomy with colostomy, 06/2024 -c. difficile carrier 5. Chronic anxiety/depression -on bupropion, citalopram, trazodone 6. Essential tremor -on primidone 7. Anemia -slowly drifting down from normal to 9-10 over the last year. -check iron and TIBC check echo today possibly home later today if she is feeling better. Home medication recommendations: Aspirin 81 mg daily Effient 10 mg daily Metoprolol to tartrate 25 mg 1/2 tablet twice daily Lipitor 80 mg daily Follow-up in our office in 1 week to schedule revascularization of right coronary artery in 3-4 wks Addendum: Echo limited today shows EF 45% with severe hypokinesis of the anterior, septal, anteroseptal LV mcghee. No significant valve disease noted. At follow-up will try to add ARB/ARNI therapy if blood pressure tolerates.
--- NOTE | 2024-12-18 12:01 | EXP.DC.SUM ---
General Admission date:: 12/17/24 HPI HPI HPI: Ms. Reese is a 49-year-old female with significant past medical history for coronary artery disease, essential tremor, hemorrhoids, endometriosis, [place], and mesenteric ischemia leading to right hemicolectomy and modified heart post coronary bypass and graft who presents with chest pain. She was just admitted about 3 weeks ago for chest pain, workup was unremarkable at that time and plan for outpatient follow-up with ischemic eval. Was due to see cardiology later this week. States she was in [place] with family when she started having severe pain radiating to her left arm over the past 2 days. Took an extra aspirin this morning. Close this hospital was a critical access hospital and so she drove with her son to [facility] for further management. On evaluation, EKG showed diffuse ST depressions in V2 through 6. Initial troponin 0.28. Taken urgently to the Owner Consulting Engineer. Found to have 2 grafts that had gone down. Received 4 stents to the LAD with reperfusion. Admitted to medicine for further management. Complains of having left chest pain and referred pain into her arm. Denies shimon syncope. Was having some shortness of breath and cough. No nausea or vomiting. Has been compliant with her medications. Hospital Course Hospital Course Hospital Course: Rere Reese is a 54-year-old female with extensive cardiac history, CABG in April 2024. History of bowel ischemia status post resection. Presented with chest pain. Found to have NSTEMI. Taken urgently to the Owner Consulting Engineer. Received 4 stents to the LAD. Discussed case with ER physician, request admission after heart cath. I agreed to admit for further care. Initial troponin 0.2. EKG per my review with diffuse ST depressions in V2-6. #Type I NSTEMI #History of CABG April 2024 ? Presented with chest pain. EKG showed ST depressions diffusely. Initial troponin 0.2. Taken to Owner Consulting Engineer and found to have lost 2 grafts. Received 4 stents to the LAD with improved reperfusion. Started on prasugrel 10 mg daily and aspirin 81 mg daily. ? Cardiology evaluated, ECHO on 12/18/2024 reveals LVEF 45% with severe wall motion abnormalities consistent with NSTEMI. - Started prasugrel 10 mg daily, continue aspirin 81 mg, metoprolol tartrate 12.5 mg twice daily, Crestor 40 mg nightly. Consider RYANNE/ARB, SGLTi for systolic dysfunction on outpatient basis. ?Follow-up with cardiology within 1 week. #History of bowel ischemia with colostomy ? Stable. No evidence of high output state. #GERD ? Continue famotidine 20 mg twice daily #History of C. difficile ? Patient is a known carrier. No high output at this time. Will hold on treatment or testing. #Anxiety/depression ? Continue home bupropion 300 mg, citalopram 40 mg. Primidone 50 mg twice daily, hydroxyzine 10 mg as needed every 8 hours, Total time spent on discharge: 32 minutes on chart review, counseling, documentation, and direct care with patient. Exam Data for Last 24 hours Vital signs and Labs for Last 24 Hours: Temp Pulse Resp BP Pulse Ox O2 Del Method O2 Flow Rate 98.3 F 80 20 143/86 H 100 Room Air 2.5 12/18/24 07:51 12/18/24 08:00 12/18/24 07:51 12/18/24 07:51 12/18/24 07:51 12/18/24 09:00 12/18/24 07:51 Laboratory Results - last 24 hr 12/17/24 15:30: Troponin I 0.28 H 12/17/24 18:01: Activated Clotting Time 181 H* 12/17/24 19:14: Troponin I 0.54 H 12/18/24 05:31: WBC 10.0, RBC 3.42 L, Hgb 9.7 L, Hct 30.2 L, MCV 88.3, MCH 28.4, MCHC 32.1, RDW 14.0, Plt Count 342, MPV 9.7, Neut % (Auto) 50.8, Lymph % (Auto) 32.6, [place] % (Auto) 12.9 H, Eos % (Auto) 2.6, Baso % (Auto) 0.9, Neut # (Auto) 5.1, Lymph # (Auto) 3.3, [place] # (Auto) 1.3 H, Eos # (Auto) 0.3, Baso # (Auto) 0.1, Sodium 136, Potassium 3.5, Chloride 103, Carbon Dioxide 29, Anion Gap 7.5, BUN 7, Creatinine 0.80, Estimated Creat Clear 78, Estimated GFR 74, Est GFR ( Amer) 90, Glucose 91, Calcium 7.9 L, Magnesium 1.8, Total Bilirubin 0.3, AST 69 H, ALT 15, Alkaline Phosphatase 80, Total Protein 5.7 L, Albumin 3.6, Globulin 2.1, Albumin/Globulin Ratio 1.7 I & O for Last 24 hours: Intake & Output 12/15/24 12/16/24 12/17/24 12/18/24 23:59 22:59 23:59 23:59 Intake Total 500.000 / 3611.669 4106 / 1900 Output Total 0 / 200 500 / 500 Balance 500.000 / 319.643 2841 / 1400 Weight 62.823 kg 61.915 kg Constitutional Constitutional: no acute distress and chronically ill appearing *Routine HEENT Exam Head: Present normocephalic Eye: Present EOMI and PERRL ENT: Present mucous membranes moist *Routine Neck Exam Neck: Present supple; Absent lymphadenopathy *Routine Respiratory Exam Respiratory: Present CTA bilaterally *Routine Cardiovascular Exam Cardiovascular: Present RRR *Routine Abdominal Exam Abdominal: Present soft and normoactive bowel sounds; Absent tenderness *Routine Extremities Exam Extremities: Absent cyanosis, clubbing or edema *Routine Skin Exam Skin: Present warm; Absent rash *Routine Neurological Exam Neurological: Present alert and oriented X3 Results Data Completed and Pending Labs on day of discharge: Labs from last 24 hours 12/18/24 12/17/24 12/17/24 05:31 19:14 18:01 WBC 10.0 RBC 3.42 L Hgb 9.7 L Hct 30.2 L MCV 88.3 MCH 28.4 MCHC 32.1 RDW 14.0 Plt Count 342 MPV 9.7 Neut % (Auto) 50.8 Lymph % (Auto) 32.6 [place] % (Auto) 12.9 H Eos % (Auto) 2.6 Baso % (Auto) 0.9 Neut # (Auto) 5.1 Lymph # (Auto) 3.3 [place] # (Auto) 1.3 H Eos # (Auto) 0.3 Baso # (Auto) 0.1 Activated Clotting Time 181 H* Sodium 136 Potassium 3.5 Chloride 103 Carbon Dioxide 29 Anion Gap 7.5 BUN 7 Creatinine 0.80 Estimated Creat Clear 78 Estimated GFR 74 Est GFR ( Amer) 90 Glucose 91 Calcium 7.9 L Magnesium 1.8 Total Bilirubin 0.3 AST 69 H ALT 15 Alkaline Phosphatase 80 Troponin I 0.54 H Total Protein 5.7 L Albumin 3.6 Globulin 2.1 Albumin/Globulin Ratio 1.7 12/17/24 15:30 WBC RBC Hgb Hct MCV MCH MCHC RDW Plt Count MPV Neut % (Auto) Lymph % (Auto) [place] % (Auto) Eos % (Auto) Baso % (Auto) Neut # (Auto) Lymph # (Auto) [place] # (Auto) Eos # (Auto) Baso # (Auto) Activated Clotting Time Sodium Potassium Chloride Carbon Dioxide Anion Gap BUN Creatinine Estimated Creat Clear Estimated GFR Est GFR ( Amer) Glucose Calcium Magnesium Total Bilirubin AST ALT Alkaline Phosphatase Troponin I 0.28 H Total Protein Albumin Globulin Albumin/Globulin Ratio DS: Diagnosis Discharge Diagnosis (1) ST elevation (STEMI) myocardial infarction: Status: Acute Code(s): I21.3 - ST elevation (STEMI) myocardial infarction of unspecified site Qualifiers: Involved coronary artery: LAD coronary artery Qualified Code(s): I21.02 - ST elevation (STEMI) myocardial infarction involving left anterior descending coronary artery (2) Clostridium difficile carrier: Status: Acute Code(s): Z22.1 - Carrier of other intestinal infectious diseases (3) History of coronary artery bypass graft: Status: Acute Code(s): Z95.1 - Presence of aortocoronary bypass graft (4) History of right hemicolectomy: Status: Acute Code(s): Z90.49 - Acquired absence of other specified parts of digestive tract (5) Colostomy in place: Status: Acute Code(s): Z93.3 - Colostomy status (6) Chronic anxiety: Status: Acute Code(s): F41.9 - Anxiety disorder, unspecified Meds Home Medications and Allergies Home Medications ?Medication ?Instructions ?Recorded ?Confirmed ?Type citalopram 40 mg tablet 40 mg PO DAILY 12/23/23 12/17/24 History primidone 50 mg tablet 50 mg PO BID 12/23/23 12/17/24 History bupropion HCl 300 mg 24 hr tablet, 300 mg PO DAILY 05/01/24 12/17/24 History extended release aspirin 81 mg chewable tablet 81 mg PO DAILY 07/21/24 12/17/24 History rosuvastatin 40 mg tablet 40 mg PO HS 07/21/24 12/17/24 History metoprolol tartrate 25 mg tablet 12.5 mg (1/2 x 25 mg) PO BID #30 09/04/24 12/17/24 Rx tabs famotidine 20 mg tablet 20 mg PO BID 30 days #60 tabs 11/26/24 12/17/24 Rx prasugrel HCl 10 mg tablet 10 mg PO DAILY 30 days #30 tabs 12/18/24 Rx trazodone 100 mg tablet 100 mg PO HSP PRN Insomnia 12/18/24 12/18/24 History New Prescriptions to Start Prescriptions: prasugrel HCl Saul Morrell Allergies Allergy/AdvReac Type Severity Reaction Status Date / Time No Known Allergies Allergy Verified 12/10/24 15:15 Discharge Plan Disposition Patient Disposition: Home, Self-Care Condition: Fair Discharge Order Discharge Orders: Discharge Order (Routine); Ordered 12/18/24 Ordered By: Saul Morrell Follow up Plan Follow up with: Parvez Pierre PA [Physician Rib Cutter, Cardiology] - 1 week Champ Quiroz MD [Primary Care Provider, Internal Medicine] - 12/24/24 2:15 pm Prescriptions/Medication Reconciliation: New prasugrel HCl 10 mg Tablet 10 mg PO DAILY 30 Days Qty: 30 0RF Continued metoprolol tartrate 25 mg tablet 12.5 mg PO BID Qty: 30 5RF famotidine 20 mg Tablet 20 mg PO BID 30 Days Qty: 60 0RF trazodone 100 mg tablet 100 mg PO HSP PRN (Reason: Insomnia) primidone 50 mg tablet 50 mg PO BID Patient Comments: TAKE 1 TABLET BY MOUTH TWICE DAILY FOR 90 DAYS citalopram 40 mg tablet 40 mg PO DAILY bupropion HCl 300 mg tablet extended release 24 hr 300 mg PO DAILY Patient Comments: TAKE 1 TABLET BY MOUTH EVERY 24 HOURS aspirin 81 mg tablet,chewable 81 mg PO DAILY rosuvastatin 40 mg tablet 40 mg PO HS Problem Reconciliation Problems Reviewed?: Yes Patient Discharge Instructions Patient Instructions: Heart Attack, Cardiac Catheterization, Surgical Site Infection, Cardiology Catheterization Patient / Family Discharge Instructions, Post TransRadial Cath Discharge Instructions Print Language: Peruvian Providers Primary Care Provider: Champ Quiroz Admit Provider: Gregg Barth Attending Provider: Gregg Barth
[2024-12-18 12:50] LABS: Iron 52 ug/dL (37-170)
[2024-12-18 13:00] LABS: Total Iron Binding Capacity 189 ug/dL (265-497)
--- OUTSIDE RECORDS SUMMARY | 2024-12-18 15:21 | XMS_ITS | Clinical Summary ---
[facility] Address [address] [place] [address] Care Team Providers Care Supply Chain Vice President Name Role Phone Provider, No Known Primary Care Provider [phone] Allergies No known active allergies Medications propranolol [...] 11/03/2019 INFLUENZA VACCINE 09/14/2024 Insurance Care Teams Supply Chain Vice President Relationship Specialty Start Date End Date Provider, No Known [place] [id number] PCP - General 01/12/16
[2024-12-18 17:01] LABS: Hemoglobin A1C 4.8 % (4.0-6.0)
--- NOTE | 2024-12-19 10:34 | SW/DCPLANNER ---
Spoke with patient on the phone. Patient stated that she is doing good. Patient stated that she is aware of her upcoming appointments. Patient stated that she was able to get her new medicine picked up from clinic pharmacy. Patient stated that she is just wondering if its normal to feel tired. Patient stated that she has no other concerns or questions. Daniel Flowers
== END 2024-12-18 17:25 | disposition home or self-care (01) | DRG 321 ==
LOC: ER 15:26 → CATHLAB 15:38 → 2ND 17:02
PROVIDERS: Internal Medicine; Physician Assistant; Student in an Organized Health Care Education/Training Program; Admitting Provider Internal Medicine Adolescent Medicine; Emergency Provider Student in an Organized Health Care Education/Training Program; PCP Internal Medicine Adolescent Medicine; Visit Provider Internal Medicine Adolescent Medicine
PROC: 4A023N7 Measurement of Cardiac Sampling and Pressure, Left Heart, Percutaneous Approach (ICD-10-PCS; CPT 93452; principal; 2024-12-17 15:35)
DX: T82.218A Other mechanical complication of coronary artery bypass graft, initial encounter (principal); I21.A9 Other myocardial infarction type; I25.810 Atherosclerosis of coronary artery bypass graft(s) without angina pectoris; I25.10 Atherosclerotic heart disease of native coronary artery without angina pectoris; K21.9 Gastro-esophageal reflux disease without esophagitis; F41.9 Anxiety disorder, unspecified; F32.A Depression, unspecified; I10 Essential (primary) hypertension; E78.5 Hyperlipidemia, unspecified; G25.0 Essential tremor; D64.9 Anemia, unspecified; I25.2 Old myocardial infarction; Y83.2 Surgical operation with anastomosis, bypass or graft as the cause of abnormal reaction of the patient, or of later complication, without mention of misadventure at the time of the procedure; Z93.3 Colostomy status; Z90.49 Acquired absence of other specified parts of digestive tract; Z87.891 Personal history of nicotine dependence; Z22.1 Carrier of other intestinal infectious diseases; Z79.82 Long term (current) use of aspirin; Z79.899 Other long term (current) drug therapy
CPT/HCPCS: 36415; 80053; 83036; 83540; 83550; 83735; 84484; 85025; 85347; 93005; 93308; 99152; 99153; 99285; C1725; C1760; C1769; C1874; C1894; J1200; J1644; J2003; J3010; J3360; J7040; J7120; Q9967

== ENCOUNTER 2024-12-27 14:01 | Outpatient (CLI) | payer MEDICAID, SELFPAY ==
--- OUTSIDE RECORDS SUMMARY | 2024-11-01 10:15 | XMS_ITS ---
Author Organization [facility] Address [address] [facility] [address] [facility] [address] [place] [address] Care Team Providers Care Welder Production Line Gas Name Role Phone Michaelle Rivas Primary Care Provider Champ Quiroz [phone] REASON FOR VISIT 1 month f/u Encounters Encounter Location Date Provider Diagnosis [address] [address] 11/01/2024 Champ Quiroz Plan Of Treatment Next Appt Details Provider Name:Champ Quiroz, 01/07/2025 04:30:00 PM, [address], [address], [place], [address], Progress Notes * Rere REESE ADOB: [birth year] (54 yo F)Acc No.[id number]:11/01/2024 Progress Notes Patient: Dayana MCMULLENRere HONG Provider: Dayana Quiroz MD :1970 A ge:53 Y S ex:Female Date:11/01/2024 Address:[address] [place] [address] [place] Pcp:Michaelle Rivas Subjective: * Chief Complaints: * 1 . 1 month f/u. * Medical History: Objective: * Vitals: Assessment: Plan: * Treatment: * * Electronic signature of Philippe Quiroz MD FAAP on 12/27/2024 at 02:04 PM EST Sign off status: Pending * Provider: Dayana Quiroz MD Date: 0 11/01/2024 Generated for Little catalan/Fior/Jericho on: 1 02/27/2024 02:04 PM EST
--- OUTSIDE RECORDS SUMMARY | 2024-11-08 06:45 | XMS_ITS ---
Author Organization [facility] Address [address] [facility] [address] [facility] [address] [place] [address] Care Team Providers Care Community Relations Liaison Name Role Phone Michaelle Rivas Primary Care Provider [phone] Champ Quiroz [phone] REASON FOR VISIT F/u, possible flu shot Encounters Encounter Location Date Provider Diagnosis [address] [address] 11/08/2024 Champ Quiroz Plan Of Treatment Next Appt Details Provider Name:Champ Quiroz, 01/07/2025 04:30:00 PM, [address] [facility] [address] [facility], [address], [place], [address], Progress Notes * Rere REESE ADOB: [birth year] (54 yo F)Acc No.[id number]:11/08/2024 Progress Notes Patient: Dayana CASIANO Rere Abreu Provider: Dayana Quiroz MD :1970 A ge:54 Y S ex:Female Date:11/08/2024 Address:[address] [place] [address] [place] Pcp:Michaelle Rivas Subjective: * Chief Complaints: * 1 . F/u, possible flu shot. * Medical History: Objective: * Vitals: Assessment: Plan: * Treatment: * * Electronic signature of Philippe Quiroz MD FAAP on 12/27/2024 at 02:04 PM EST Sign off status: Pending * Provider: Dayana Quiroz MD Date: 0 11/08/2024 Generated for Little catalan/Fior/Jericho on: 1 02/27/2024 02:04 PM EST
--- OUTSIDE RECORDS SUMMARY | 2024-11-12 10:45 | XMS_ITS ---
Author Organization [facility] Address [address] [place] [address] Care Team Providers Care Kennel Assistant Name Role Phone Michaelle Rivas Primary Care Provider Champ Quiroz Unavailable [phone] Allergies Allergen (clinical drug ingredient) Drug/Non Drug [...] W/U Status Risk Notes Problem Chronic rhinitis (35137399) Chronic rhinitis (J31.0) Active confirmed Vital Signs Temperature 97.5 degrees Fahrenheit 11/13/19 25 Blood pressure systolic 150 mm Hg 11/13/19 25 Blood pressure diastolic 70 mm Hg 025 Heart Rate 80 /min 11/12/2024 Height 5 ft 1 in in 11/12/2024 Weight 124.6 lbs 11/12/2024 BMI 23.54 kg/m2 11/12/2024 Encounters Encounter Location Date Provider Diagnosis [facility] [place] [address] [place] [address] 11/12/2024 Champ Quiroz Subacute cough R05.2 and Chronic rhinitis J31.0 [address], [place], [address], Medications Administered Medication Instructions Date of Administration Dosage Notes Dexamethasone 4mg Injection 11/12/2024 4 mg Progress Notes * Rere REESE ADOB: [birth year] (54 yo F)Acc No.[id number]:11/12/2024 Progress Notes Patient: Rere DICKSON Provider: Dayana Quiroz MD :1970 A ge:54 Y S ex:Female Date:11/12/2024 Address:[address] [place] [address] [id number] Pcp:Michaelle Rivas Subjective: * Chief Complaints: * [...] disease, status post CABG May 08 at [facility], Sepsis, bowel ischemia and colostomy April/2024 at [facility], Colitis. * Medications: T aking [...] J 1100 Dexamethasone Sodium Phosphate 4mg Injection, [address] THERAPEUTIC ADMINISTRATION * Follow Up: p rn * * Sign off status: Completed true * Provider: Dayana Quiroz MD Date: 0 11/12/2024 Generated for Little catalan/Fior/eTransmitting on: 02/27/2024 02:05 PM EST History and Physical Notes * [...]
--- OUTSIDE RECORDS SUMMARY | 2024-11-21 05:28 | XMS_ITS ---
Author Organization [facility] Address [address] [place] [address] Care Team Providers Care Derrick Worker Name Role Phone Michaelle Rivas Primary Care Provider [phone] Champ Quiroz Unavailable [phone] Results Component Value Reference Range Notes M-Complete [...] CDiff Encounters Encounter Location Date Provider Diagnosis [facility] [address] [facility] [address] [facility] [address] [place] [address] 11/21/2024 Michaelle McNees Acute abdominal pain R10.9 and Diarrhea, unspecified type R19.7 Assessments Encounter Date Diagnosis (ICD Code) Assessment Notes Treatment Notes Treatment Clinical Notes Section Notes 11/21/2024 Acute abdominal pain (ICD-10 - R10.9) 11/21/2024 Diarrhea, unspecified type (ICD-10 - R19.7) Plan Of Treatment Next Appt Details Provider Name:Champ Quiroz, 01/07/2025 04:30:00 PM, [address] [facility] [address] [facility], [address], [place], [address], Progress Notes * ELSARere ADOB: [birth year] (54 yo F)Acc No.[id number]:11/21/2024 Patient: Rere DICKSON :1970 A ge:54 Y S ex:Female Address:[address] [place] [address] [place] [address] Subjective: * Chief Complaints: * p ossible [...] * Date: Generated for Printi ng/Faxing/eTransmitting on: 02/27/2024 02:04 PM EST
--- OUTSIDE RECORDS SUMMARY | 2024-11-22 03:47 | XMS_ITS ---
Author Organization [facility] Address [address] [facility] [address] [facility] [address] [place] [address] Care Team Providers Care Metal Drawer Name Role Phone Zeb Rivasi Primary Care Provider Champ Quiroz [phone] Encounters Encounter Location Date Provider Diagnosis [facility] [address] [facility] [address] [facility] [address] [place] [address] 11/22/2024 Michaelle Rivas Diarrhea, unspecifie d type R19.7 Assessments Encounter Date Diagnosis (ICD Code) Assessment Notes Treatment Notes Treatment Clinical Notes Section Notes 11/22/2024 Diarrhea, unspecified type (ICD-10 - R19.7) Plan Of Treatment Pending Test Test Name Order Date M-C. Diff Toxin Assay 11/22/2024 Next Appt Details Provider Name:Champ Quiroz, 01/07/2025 04:30:00 PM, [address] [facility] [address] [facility], [address], [place], [place], [address], Progress Notes * Rere REESE ADOB: [birth year] (54 yo F)Acc No.[id number]:11/22/2024 Patient: Rere DICKSON :1970 A ge:54 Y S ex:Female Address:[address] [place] [address] [place] [address] Subjective: * Chief Complaints: * * Medical History: * Surgical History: * Hospitalization/Major Diagno stic Procedure: * Medications: Objective: * Vitals: * Physical Examination: Assessment: * Assessment: 1. D iarrhea, unspecified type - R19.7 Plan: * Treatment: * Procedure Codes: * true * Date: Generated for Little Wheeler/Jericho on: 02/27/2024 02:04 PM EST
--- OUTSIDE RECORDS SUMMARY | 2024-11-22 10:15 | XMS_ITS ---
Author Organization [facility] Address [address] [facility] [address] [place] [address] Care Team Providers Care Skin Care Specialist Name Role Phone Michaelle Rivas Primary Care Provider Champ Quiroz Unavailable [phone] Allergies Allergen (clinical drug ingredient) Drug/Non Drug Allergy documented on EMR Reaction Allergy Type Onset Date Status LATEX GLOVES (uncoded) Unknown Allergy Active acetaminophen / oxycodone Percocet stomach upset, sweating Drug Allergy Active Results Component Value Reference Range Notes Urinalysis Reviewed date:11/22/2024 04:57:22 PM Interpretation: Performing Lab: Notes/Report: Color/Clarity yellow Leuk trace Nitrite neg Urobili 0.2 Protein neg pH 6.0 Blood neg Sp. Gr. 1.015 Ketone neg Bili neg Glucose neg REASON FOR VISIT possible cdiff Medications Medication SIG (Take, Route, Frequency, Duration) Notes Start Date End Date Status predniSONE 20 MG 1 tablet with food o r milk Orally Once a day; Duration: 7 days 11/22/2024 Active Methocarbamol 750 MG 1 tablet Orally every 6 hrs; Duration: 10 days As needed 11/22/2024 Active Aspirin 81 81 MG 1 tablet Orally Once a day Active Combivent Respimat 20-100 MCG/ACT INHALE 1 PUFF BY MOUTH 4 TIMES DAILY; Duration: 30 days prn Active Primidone 50 MG 1 tab(s) orally twic e a day; Duration: 90 days Active Azelastine-Fluticasone 137-50 MCG/ACT 2 sprays Nasally Twice a day; Duration: 30 days 11/12/2024 Active Rosuvastatin Calcium 40 MG 1 tablet [...] Twice a day; Duration: 14 days Active hydrOXYzine HCl 10 MG 1 tab orally every 8 hours; Duration: 30 days prn Active Citalopram Hydrobromide 40 MG 1 tab(s) orally once a day; Duration: 90 days Active Social History Tobacco Use: Social [...] e smoker (20-39 cigs/day) Vital Signs Temperature 98.4 degrees Fahrenheit 11/23/19 25 Blood pressure systolic 142 mm Hg 11/23/19 25 Blood pressure diastolic 76 mm Hg 025 Heart Rate 84 /min 11/22/2024 Height 5 ft 1 in in 11/22/2024 Weight 125 lbs 11/22/2024 BMI 23.62 kg/m2 11/22/2024 Encounters Encounter Location Date Provider Diagnosis [facility] [address] [facility] [address] [place], [place] [address] 11/22/2024 Michaelle Rivas Acute bilateral low back pain without sciatica M54.50 ; Lower abdominal pain R10.30 and History of Clostridium difficile infection Z86.19 Assessments Encounter Date Diagnosis (ICD Code) Assessment Notes Treatment Notes Treatment Clinical Notes Section Notes 11/22/2024 Acute bilateral low back pain without sciatica (ICD-10 - M54.50) Rest, warm compresses, prednisone with methocarbamol. 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 Does not clinically appear to have an active C.Diff infection. C. Diff toxin is pending. Will treat based on toxin results unless patient becomes symptomatic prior to results. Return precautions discussed Plan Of Treatment Medication Medication Name Sig Start Date Stop Date Notes predniSONE 20 MG 1 tablet with food o r milk Orally Once a day; Duration: 7 days 11/22/2024 Methocarbamol 750 MG 1 tablet Orally leona ry 6 hrs; Duration: 10 days 11/22/2024 Treatment Notes Assessment Notes Acute bilateral low back marlo n without sciatica Rest, warm compresses, prednisone with methocarbamol. Xray pending Lower abdominal pain Likely related to a dhesions and post surgical neuropathy History of Clostridium difficile infecti on Diarrhea has resolved. Does not clinically appear to have an active C.Diff infection. C. Diff toxin is pending. Will treat based on toxin results unless patient becomes symptomatic prior to results. Return precautions discussed Pending Test Test Name Order Date X ray : Spines, Lumbosacral 11/22/2024 Next Appt Details Follow Up: pendinh C. Diff t oxin, Reason: Provider Name:Champ Lopezur Zunildanaun, 01/07/2025 04:30:00 PM, [address], [address], [place], [address], Progress Notes * Miguel Ángel REESEie ADOB: [birth year] (54 yo F)Acc No.[id number]:11/22/2024 Progress Notes Patient: Rere DICKSON Lois Provider: Chelle Rivas APRN :1970 A ge:54 Y S ex:Female Date:11/22/2024 Address:[address] [place] [address] [id number] Subjective: * Chief Complaints: * 1 . Possible cdiff. 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 Yesterday, reported diarrhea and lower abd pain c/w c.diff infections in the past. Labs and diarrhea pcr ordered. WBC 11. CMP unremarkable. PCR + C. Diff. Today, reports lower abd pain has been chronic since her surgery and it at baseline. Diarrhea has resolved. No blood or mucus in stool. Today, she began having low back pain, bilateral, isolated to back. No injury or trauma. Pain increases with movement, bending, twisting. Feels weakness, tired. Concerned about hair loss. * ROS: C ARDIOLOGY: Reviewed, No Symptoms Reported: Y es. C ONSTITUTIONAL: no L oss of appetite. n o F ever. W eakness?yes. G ASTROENTEROLOGY: no N ausea. n o H eartburn. A bdominal pain?yes. n o D iarrhea. n o C onstipation. H EMATOLOGY/LYMPH: no S wollen glands. n o E asy bruising. ? N EUROLOGY: no H eadache. U ROLOGY: Dysuria n o. n o D ifficulty urinating. n o?Blood in urine. n o F requent urination. * Medical History: H ormone replacement therapy, [...] 01/2022, - heart attach 04/30/2024-06/28/24, Septic 07/24/2024, [facility]- abd pain 07/2024, 09/2024. * Family History: F ather: , [...] active: no. Travel outside [place]: no. 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 * Medications: T aking Aspirin 81 81 [...] tab(s) orally every 24 hours , Taking Rosuvastatin Calcium 40 MG Tablet 1 tablet Orally Once a day , Taking Azelastine-Fluticasone 137-50 MCG/ACT Suspension 2 sprays Nasally Twice a day , Discontinued Benzonatate 200 MG Capsule 1 capsule as needed Orally Three times a day , Medication List reviewed and reconciled with the patient * Allergies: L ATEX GLOVES, Percocet: stomach upset, sweating - Side Effects. Objective: * Vitals: N urse: be, Pain: 10, Temp: 98.4, RR: 16, HR: 84, BP: 142/76, Ht: 5 ft 1 in, Wt: 125, BMI:23.62. * Examination: G eneral Examination: General P leasant and Cooperative, NAD on RA,. Chest: n ormal shape and expansion. Heart: R egular Rate and Rhythm, no murmur, rubs or gallops. Lungs: L CTAB, No wheezes, crackles or rhonchi, Good air movement,. Abdomen: S oft, mild lower abd tenderness, ND, BSNA, No organomegaly or peritoneal signs. large vertical midline scar, colostomy site unremarkable with scant brown stool in bag. Neurologic Exam: h allpike manouvre positive, Moves All 4 Extremities Equally, Alert and oriented x 3 . Skin: w ithout acute rashes. Peripheral pulses: n ormal (2+) bilaterally. Back: l umbar paraspinal muscle tenderness, SI joint tenderness, SLR deferred due to pain. neck s upple,, no thyromegaly,, no lymphadenopathy,. Psych N ormal Mood/Affect. Assessment: * Assessment: 1. A cute bilateral low back pain without sciatica - M54.50 (Primary) 2 . L ower abdominal pain - R10.30 3 . H istory of Clostridium difficile infection - Z86.19 Plan: * Treatment: Value Reference Range C olor/Clarity yellow * L euk trace * N itrite neg * U robili 0.2 * P rotein neg * p H 6.0 * B lood neg * S p. Gr. 1.015 * K etone neg * B leslie neg * G lucose neg * Génesis Vickers N 11/23/19 25 04:09:29 PM EDT > ?Imaging: X ray : Spines, Lumbosacral* Notes: Rest, warm compresses, prednisone with methocarbamol. Xray pending?? 2.?Lower abdominal pain? 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 Notes: Diarrhea has resolved. Does not clinically appear to have an active C.Diff infection. C. Diff toxin is pending. Will treat based on toxin results unless patient becomes symptomatic prior to results. Return precautions discussed?? * Procedure Codes: 8 1002 URINALYSIS, Modifiers: QW * Follow Up: p jose C. 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 Yesterday, reported diarrhea and lower abd pain c/w c.diff infections in the past. Labs and diarrhea pcr ordered. WBC 11. CMP unremarkable. PCR + C. Diff. Today, reports lower abd pain has been chronic since her surgery and it at baseline. Diarrhea has resolved. No blood or mucus in stool. Today, she began having low back pain, bilateral, isolated to back. No injury or trauma. Pain increases with movement, bending, twisting. Feels weakness, tired. Concerned about hair loss Examination Category Sub-Category Detail Notes Category Not es General Examination Heart: Regular Rate and Rhythm, no murmur, rubs or gallops Lungs: LCTAB, No wheezes, c rackles or rhonchi, Good air movement, Abdomen: Soft, mild lower abd tenderness, ND, BSNA, No organomegaly or peritoneal signs. large vertical midline scar, colostomy site unremarkable with scant brown stool in bag Skin: without acute rashes Neurologic Exam: hallpike manouvre po sitive, Moves All 4 Extremities Equally, Alert and oriented x 3 Peripheral pulses: normal (2+) bilatera lly Back: lumbar paraspinal mu scle tenderness, SI joint tenderness, SLR deferred due to pain Chest: normal shape and exp ansion neck supple,, no thyromeg pedro,, no lymphadenopathy, General Pleasant and Coopera tive, NAD on RA, Psych Normal Mood/Affect
--- OUTSIDE RECORDS SUMMARY | 2024-12-05 09:15 | XMS_ITS ---
Author Organization [facility] Address [address] [place] [address] Care Team Providers Care Him Specialist Name Role Phone Michaelle Rivas Primary Care Provider Champ Quiroz Unavailable [phone] Allergies Allergen (clinical drug ingredient) Drug/Non Drug Allergy documented on EMR Reaction Allergy Type Onset Date Status LATEX GLOVES (uncoded) Unknown Allergy Active acetaminophen / oxycodone Percocet stomach upset, sweating Drug Allergy Active REASON FOR VISIT [facility] D/C 11/26/2024, still having burning in her chest (heartburn) Famotidine is not working Medications Medication SIG (Take, Route, Frequency, Duration) Notes Start Date End Date Status predniSONE 20 MG 1 tablet with food o r milk Orally Once a day; Duration: 7 days 11/22/2024 Active traZODone HCl 100 MG 1 tablet at bedtime as needed Orally Once a day; Duration: 30 days 07/30/2024 Active Biotin 1000 MCG 1 tablet Orally Once a day; Duration: 90 days 12/05/2024 Active Methocarbamol 750 MG 1 tablet Orally every 6 hrs; Duration: 10 days As needed 11/22/2024 Active Azelastine-Fluticasone 137-50 MCG/ACT 2 sprays Nasally Twice a day; Duration: 30 days 11/12/2024 Active Breztri Aerosphere 160-9-4.8 MCG/ACT 2 puffs Inhalation Twice a day 12/05/2024 Active Metoprolol Tartrate 25 MG 1/2 tab Orally Twice a day; Duration: 14 days Active hydrOXYzine HCl 10 MG 1 tab orally every 8 hours; Duration: 30 days prn Active Citalopram Hydrobromide 40 MG 1 tab(s) orally once a day; Duration: 90 days Active Rosuvastatin Calcium 40 MG 1 tablet Oral ly Once a day; Duration: 30 days Active Aspirin 81 81 MG 1 tablet Orally Once a day Active Famotidine 20 MG 1 tablet Orally bid before breakfast and supper t Active Primidone 50 MG 1 tab(s) orally twic e a day; Duration: 90 days Active buPROPion HCl ER (XL) 300 MG 1 tab(s) or ally every 24 hours; Duration: 30 days Active Combivent Respimat 20-100 MCG/ACT INHALE 1 PUFF BY MOUTH 4 TIMES DAILY; Duration: 30 days prn Active Social History Tobacco Use: Social History Observation Description Date Details (start date - stop date) Former Smoker NA - NA Tobacco Control (Standard) Question Answer Notes Tobacco use: Former smoker How long has it been since you last smoked? 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 She does not think that her pain is from her heart. She also does not think it is from reflux. She thinks it is from her lungs. See notes below. 12/05/2024 Clostridioides difficile carrier (ICD-10 - Z22.1) Diarrhea is better, stay on famotidine, continue probiotics 12/05/2024 Panlobular emphysema (ICD-10 - J43.1) Patient's only been using albuterol as needed on a very random basis. She notes that her lungs burn when she gets outside and takes a walk and the impregnator and drier helper air hits her lungs. She thinks this is the cause of her chest pain. Will trial triple inhaler, gave her samples, demonstrated how to use these appropriately and will follow-up 12/05/2024 Hospital discharge follow-up (ICD-10 - Z09) Personally reviewed H&P and discharge summary as available from hospital discharge documentation. Reviewed pertinent labs and test done in the hospital. Personally reconciled medication. 12/05/2024 Primary insomnia (ICD-10 - F51.01) 12/05/2024 Other Patient notes insomnia is better but not where she would like to be on trazodone 50, will bump up to 100 Plan Of Treatment Medication Medication Name Sig Start Date Stop Date Notes traZODone HCl 100 MG 1 tablet at bedtime as needed Orally Once a day; Duration: 30 days 07/30/2024 Biotin 1000 MCG 1 tablet Orally Once a day; Duration: 90 days 12/05/2024 Breztri Aerosphere 160-9-4.8 MCG/ACT 2 puffs Inhalation Twice a day 12/05/2024 Treatment Notes Assessment Notes Atherosclerosis of [place] co ronary artery of [place] heart without angina pectoris Discussed patient's chest pain and hospital workup with her. She does not think that her pain is from her heart. She also does not think it is from reflux. She thinks it is from her lungs. See notes below. Clostridioides difficile carrier Diarrhe a is better, stay on famotidine, continue probiotics Panlobular emphysema Patient's only been using albuterol as needed on a very random basis. She notes that her lungs burn when she gets outside and takes a walk and the impregnator and drier helper air hits her lungs. She thinks this is the cause of her chest pain. Will trial triple inhaler, gave her samples, demonstrated how to use these appropriately and will follow-up Hospital discharge follow-up Personally reviewed H&P and discharge summary as available from hospital discharge documentation. Reviewed pertinent labs and test done in the hospital. Personally reconciled medication. Other Patient notes insomn ia is better but not where she would like to be on trazodone 50, will bump up to 100 Next Appt Details Follow Up: 2 Weeks, Reason: Provider Name:Champ Quiroz, 01/07/2025 04:30:00 PM, [address], [address], [place], [address], Progress Notes * ELSA Rere ADOB: [birth year] (54 yo F)Acc No.[id number]:12/05/2024 HOSP F/U Patient: Rere DICKSON Provider: Dayana Quiroz MD :1970 A ge:54 Y S ex:Female Date:12/05/2024 Address:[address] [place] [address] S , [id number] Pcp:Michaelle Rivas Subjective: * Chief Complaints: * 1 . [facility] D/C 11/26/2024. 2. still having burning in her chest (heartburn) Famotidine is not working. * HPI: I ntrim History: Transition of care visit from hospital D ate of admission to hospital: 1 , D ate of receipt of hospital admission report: 1 ,?Date of discharge from hospital: , D ate of receipt of hospital discharge summary: , D ischarge medications reviewed and reconciled from hospital: M edications left unchanged. Patient is here for hospital discharge transitional care visit. Admitted at [facility] on dates noted above. Briefly, was admitted for chest pain, found to have reproducible chest pain, ruled out for [place], cardiology consult. [facility] deferred heart cath. She has an appointment with her regular isolation washer at . She was not changed in regards to medication. Ranexa was not started because of primidone interaction and Imdur was not started because of her low blood pressure in the hospital. Was maintained on low-dose beta-stacey. Also was noted to have colonization of C. difficile. Was switched from PPI to famotidine to hopefully help with this colonization issue and to control GERD symptoms She presents today to reevaluate things. * Medical History: H ormone replacement therapy, Depression, Copd, Asthma, Smoker, Tremors, Coronary artery disease, status post CABG May 08 at [facility], Sepsis, bowel ischemia and colostomy April/2024 at [facility], Colitis. * Surgical History: l t rotator cuff 2020, rt hand surgery 01/2023, colon resection 04/30/24. * Hospitalization/Major Diagno stic Procedure: H [facility] 01/2022, - heart attach 04/30/2024-06/28/24, Septic 07/24/2024, [facility]- abd pain 07/2024, 09/2024, [facility] 11/2024. * Family History: F ather: , Cholesterol , lung issues, diagnosed with Heart Disease. M other: . P aternal Grand Father: . P aternal Grand Mother: , diagnosed with Heart Disease. M aternal Grand Father: . M aternal Grand Mother: . P aternal uncle: alive, diagnosed with Heart Disease. M aternal uncle: alive. M aternal aunt: alive. Siblings: alive. C hildren: alive. 2 sister(s) - healthy. 2 son(s) , 1 daughter(s) - healthy. . * Social History: R ecreational drug use: yes, Past use:. Exercise: yes. Home smoke detector use: yes. Caffeine: yes, frequency:coffee, soft drinks, tea. Living Will: No. Alcohol: no. Sexually active: no. Travel outside US: no. 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 Tobacco Control (Standard) T obacco use: F ormer smoker, H ow long has it been since you last smoked? 6 -12 months. * Medications: T aking Famotidine 20 MG Tablet 1 tablet Orally bid before breakfast and supper t, Taking Aspirin 81 81 MG Tablet Delayed [...] needed Orally Once a day , Taking Rosuvastatin Calcium 40 MG Tablet 1 tablet Orally Once a day , Taking Azelastine-Fluticasone 137-50 MCG/ACT Suspension 2 sprays Nasally Twice a day , Taking Methocarbamol 750 MG Tablet 1 tablet Orally every 6 hrs As needed, Taking predniSONE 20 MG Tablet 1 tablet with food or milk Orally Once a day , Taking buPROPion HCl ER (XL) 300 MG Tablet Extended Release 24 Hour 1 tab(s) orally every 24 hours , Medication List reviewed and reconciled with the patient * Allergies: L ATEX GLOVES, Percocet: stomach upset, sweating - Side Effects. Objective: * Vitals: N urse: jl, Pain: 5, Temp: 97.8, RR: 16, HR: 58, BP: 108/60, Ht: 5 ft 1 in, Wt: 126.4, BMI:23.88. jl. * Examination: G eneral Examination: General P [...] ormal Mood/Affect. Assessment: * Assessment: 1. A therosclerosis of [place] coronary artery of [place] heart without angina pectoris - I25.10 (Primary) 2 . C lostridioides difficile carrier - Z22.1 3 . P anlobular emphysema - J43.1 4 . H ospital discharge follow-up - Z09 5 . P rimary insomnia - F51.01 Plan: * Treatment: 2. C lostridioides difficile carrier Notes: Diarrhea is better, stay on famotidine, continue probiotics 3. P anlobular emphysema Start Breztri Aerosphere Aerosol, 160-9-4.8 MCG/ACT, 2 puffs, Inhalation, Twice a day; S tart Biotin Tablet, 1000 MCG, 1 tablet, Orally, Once a day, 90 days, 90 Tablet, Refills 1. Notes: Patient's only been using albuterol as needed on a very random basis. She notes that her lungs burn when she gets outside and takes a walk and the impregnator and drier helper air hits her lungs. She thinks this is the cause of her chest pain. Will trial triple inhaler, gave her samples, demonstrated how to use these appropriately and will follow-up 4. H ospital discharge follow-up Notes: Personally reviewed H&P and discharge summary as available from hospital discharge documentation. Reviewed pertinent labs and test done in the hospital. Personally reconciled medication. 5. P rimary insomnia Increase traZODone HCl Tablet, 100 MG, 1 tablet at bedtime as needed, Orally, Once a day, 30 days, 30 Tablet, Refills 1. 6. O thers Notes: Patient notes insomnia is better but not where she would like to be on trazodone 50, will bump up to 100 * Procedure Codes: 9 9495 TRANS CARE MGMT 14 DAY DISCH, Modifiers: 25 , 1111F [facility] MED/CURENT MED MERGE, 63694 DEMONSTRATE USE MDI/NEB * Follow Up: 2 Weeks * * Sign off status: Completed true * Provider: Dayana Quiroz MD Date: Generated for Little catalan/Fior/eTransmitting on: 02/27/2024 02:04 PM EST History and Physical Notes * HPI (History of Present Illness) Category Sub-Category Detail Notes Category Not es [place] History Transition of care visit from hospital Date of admission to hospital:: 11/24/2024 Patient is here for hospital discharge transitional care visit. Admitted at [facility] on dates noted above. Briefly, was admitted for chest pain, found to have reproducible chest pain, ruled out for [place], cardiology consult. [facility] deferred heart cath. She has an appointment with her regular isolation washer at . She was not changed in regards to medication. Ranexa was not started because of primidone interaction and Imdur was not started because of her low blood pressure in the hospital. Was maintained on low-dose beta-stacey. Also was noted to have colonization of C. difficile. Was switched from PPI to famotidine to hopefully help with this colonization issue and to control GERD symptoms She presents today to reevaluate things Date of receipt of hospital admission re port:: 11/26/2024 Date of discharge from hospital:: 2024 Date of receipt of hospital discharge licea mmary:: 11/26/2024 Discharge medications review ed and reconciled from [...]
--- OUTSIDE RECORDS SUMMARY | 2024-12-11 10:15 | XMS_ITS | Encounter Summary ---
Author Organization Healthcare Address [address] [place] [address] Care Team Providers Care Administrative Assistant Receptionist Name Role Phone Champ Quiroz MD Primary Care Provider [phone] Reason for Visit * Reason Comments Follow-up Encounter Details Date Type Department Care Team (Late st Contact Info) Description 12/11/2024 11:15 AM EDT Office Visit [facility] General Surgery [address] [place] [address] Lidia Troncoso MD [address] [place] [address] Enteritis (Primary Dx); S/P colon [...] any time in the past 12 m [facility], were you homeless or living in a long term (including now)? No 09/21/2024 CAGE ASSESSMENT Answer [...] drink first t jaime in the morning (EYE-[employer] SALES REPRESENTATIVE) to steady your nerves or to get [...] Roy MD - 12/11/2024 11:15 AM EDT [facility] Colon & Rectal Surgery 12/11/2024 Chief Complaint: [...] on 07/11/2024 following a heart attack. Patient's photo print specialist does not think she is a good [...] List Items Addressed This Visit S/P colostomy ([facility]) S/P colon resection Enteritis - Primary History [...] within 1 therapy visit. Occupational Therapy No Ramandeep, Jd B documented as of this encounter Visit Diagnoses Diagnosis Enteritis- Primary Other and unspecified noninfectious gastroenteritis and colitis S/P colon resection Other postprocedural status History of infection of intestine due to Clostridium difficile S/P colostomy ([facility]) Colostomy status documented in this encounter Additional [...] documented as of this encounter Care Teams Administrative Assistant Receptionist Relationship Specialty Start Date End Date Champ Quiroz MD [address] [place] [id number] PCP - General Internal Medicine 06/29/24 documented as of this encounter
--- OUTSIDE RECORDS SUMMARY | 2024-12-24 09:15 | XMS_ITS ---
Author Organization [facility] Address [address] [place] [address] Care Team Providers Care Meat Trimmer Name Role Phone Michaelle Rivas Primary Care Provider Champ Quiroz Unavailable [phone] Allergies Allergen (clinical drug ingredient) Drug/Non Drug Allergy documented on EMR Reaction Allergy Type Onset Date Status LATEX GLOVES (uncoded) Unknown Allergy Active acetaminophen / oxycodone Percocet stomach upset, sweating Drug Allergy Active REASON FOR VISIT Discharged from [facility] on 12/18/24. Still having some pain, but feels some better. Still having a lot of fatigue Medications Medication SIG (Take, Route, Frequency, Duration) Notes Start Date End Date Status Breztri Aerosphere 160-9-4.8 MCG/ACT 2 puffs Inhalation Twice a day 12/05/2024 Active Biotin 1000 MCG 1 tablet Orally Once a day; Duration: 90 days 12/05/2024 Active traZODone HCl 100 MG 1 tablet at bedtime as needed Orally Once a day; Duration: 30 days 07/30/2024 Active buPROPion HCl ER (XL) 300 MG 1 tab(s) or ally every 24 hours; Duration: 30 days Active predniSONE 20 MG 1 tablet with food o r milk Orally Once a day; Duration: 7 days 11/22/2024 Active Rosuvastatin Calcium 40 MG 1 tablet Oral ly Once a day; Duration: 30 days Active Metoprolol Tartrate 25 MG 1/2 tab Orally Twice a day; Duration: 14 days Active Losartan Potassium 25 MG 1 tablet Orally Once a day; Duration: 30 days 12/24/2024 Active Methocarbamol 750 MG 1 tablet Orally every 6 hrs; Duration: 10 days As needed 11/22/2024 Active Azelastine-Fluticasone 137-50 MCG/ACT 2 sprays Nasally Twice a day; Duration: 30 days 11/12/2024 Active Primidone 50 MG 1 tab(s) orally twic e a day; Duration: 90 days Active Aspirin 81 81 MG 1 tablet Orally Once a day Active Combivent Respimat 20-100 MCG/ACT INHALE 1 PUFF BY MOUTH 4 TIMES DAILY; Duration: 30 days prn Active hydrOXYzine HCl 10 MG 1 tab [...] Problem Status W/U Status Risk Notes Problem Old myocardial infarction (7775187) Status post non-ST elevation myocardial infarction (NSTEMI) (I25.2) Active confirmed Problem Chronic systolic heart failure (143329715) Systolic CHF, chronic (I50.22) Active confirmed Vital Signs Temperature 97.5 degrees Fahrenheit 12/25/19 25 Blood pressure systolic 128 mm Hg 12/25/19 25 Blood pressure diastolic 64 mm Hg 025 Heart Rate 80 /min 12/24/2024 Height 5 ft 1 in in 12/24/2024 Weight 129.6 lbs 12/24/2024 BMI 24.49 kg/m2 12/24/2024 Encounters Encounter Location Date Provider Diagnosis [facility] [address] [place], [place] [address] 12/24/2024 Champ Quiroz Atherosclerosis of chilkoot coronary artery of chilkoot heart without angina pectoris I25.10 ; C. difficile colitis A04.72 ; Status post non-ST elevation myocardial infarction (NSTEMI) I25.2 ; Systolic CHF, chronic I50.22 and Hospital discharge follow-up Z09 Assessments Encounter Date Diagnosis (ICD Code) Assessment Notes Treatment Notes Treatment Clinical Notes Section Notes 12/24/2024 Atherosclerosis of chilkoot coronary artery of chilkoot heart without angina pectoris (ICD-10 - I25.10) 2 grafts found to have failed in lab tech. 4 LAD stents placed with reperfusion. Tolerating statin therapy well. Continue statin therapy as directed 12/24/2024 C. difficile colitis (ICD-10 - A04.72) No treatment during admit due to no output. Continue with previous plan of probiotics and famotidine. 12/24/2024 Status post non-ST elevation myocardial infarction (NSTEMI) (ICD-10 - I25.2) Diagnosed with NSTEMI during admit with 4 LAD stents placed. Started on prasugrel. [facility] Cardiology recommends outpatient RYANNE/ARB/SGLT2 for systolic dysfunction as outpatient. Continue prasugrel, aspirin, metoprolol, and crestor 12/24/2024 Systolic CHF, chronic (ICD-10 - I50.22) Diagnosed during admission. LVEF 45% Needs GDMT. Will initiate cautiously due to body habitus and intolerance to certain medications. Currently tolerating metoprolol. Start Losartan 25mg QD. Follow up in 2 weeks. Has appointment with cardiology this (12/27). 12/24/2024 Hospital discharge follow-up (ICD-10 - Z09) Diagnosed as NSTEMI during admit with 4 LAD stents placed. Started on prasugrel 10mg QHS Has follow up with cardiology on 12/27/2024 Will initiate Losartan 25mg QD today with follow up in 2 weeks for evaluation 12/24/2024 Other spent greater than 40 minutes in direct patient care with >50% of time spent on counseling on diagnoses and treatments. Plan Of Treatment Medication Medication Name Sig Start Date Stop Date Notes Losartan Potassium 25 MG 1 tablet Orally Once a day; Duration: 30 days 12/24/2024 Treatment Notes Assessment Notes Atherosclerosis of chilkoot co ronary artery of chilkoot heart without angina pectoris 2 grafts found to have failed in lab tech. 4 LAD stents placed with reperfusion. Tolerating statin therapy well. Continue statin therapy as directed C. difficile colitis No treatment during admit due to no output. Continue with previous plan of probiotics and famotidine. Status post non-ST elevation myocardial infarction (NSTEMI) Diagnosed with NSTEMI during admit with 4 LAD stents placed. Started on prasugrel. [facility] Cardiology recommends outpatient RYANNE/ARB/SGLT2 for systolic dysfunction as outpatient. Continue prasugrel, aspirin, metoprolol, and crestor Systolic CHF, chronic Diagnosed during admission. LVEF 45% Needs GDMT. Will initiate cautiously due to body habitus and intolerance to certain medications. Currently tolerating metoprolol. Start Losartan 25mg QD. Follow up in 2 weeks. Has appointment with cardiology this (12/27). Hospital discharge follow-up Diagnosed as NSTEMI during admit with 4 LAD stents placed. Started on prasugrel 10mg QHS Has follow up with cardiology on 12/27/2024 Will initiate Losartan 25mg QD today with follow up in 2 weeks for evaluation Other spent greater than 4 0 minutes in direct patient care with >50% of time spent on counseling on diagnoses and treatments. Next Appt Details Follow Up: 2 Weeks,Tracy elaine on: Provider Name:Champ Quiroz, 01/07/2025 04:30:00 PM, [address] [facility] [address] [facility], [address], [place], [address], Progress Notes * Rere REESE ADOB: [birth year] (54 yo F)Acc No.[id number]:12/24/2024 HOSP F/U Patient: Rere DICKSON Provider: Dayana Quiroz MD :1970 A ge:54 Y S ex:Female Date:12/24/2024 Address:[address] [place] [address] , [id number] Pcp:Michaelle Rivas Subjective: * Chief Complaints: * 1 . Discharged from [facility] on 12/18/24. Still having some pain, but feels some better. Still having a lot of fatigue. * HPI: g en: Patient presents to clinic for transfer of care following admit to [facility] on 12/17/2024. Discharged 12/18/2024. She was in [place] with family when she started having severe left-sided chest pain with radiation to left arm. Initial troponin was elevated with diffuse ST depressions. Diganosed with NSTEMI and she was taken to the [facility] lab[facility] where 2 previous grafts gone down . She received 4 stents to the LAD with reperfusion - Echo completed by cardiology: LVEF 45%, started prasugrel, continued aspirin, metoprolol, and crestor, with consideration to initiate RYANNE/ARB/SGLT2 after discharge - Known C. diff carrier: no high output during admit. No treatment given Overall, she received 4 stents to LAD and started prasugrel. No other modifications to medications made. She is here for re-assessment. I ntrim History: Transition of care visit from hospital D ate of admission to hospital: 02/17/2024, D ate of receipt of hospital admission report: 02/18/2024,?Date of discharge from hospital: 02/18/2024, D ate of receipt of hospital discharge summary: 02/18/2024, D ischarge medications reviewed and reconciled from hospital: M edications left unchanged. * Medical History: H ormone replacement therapy, Depression, Copd, Asthma, Smoker, Tremors, Coronary artery disease, status post CABG May [address] [facility], Sepsis, bowel ischemia and colostomy April/[address] [facility], Colitis. * Surgical History: l t rotator cuff 2020, rt hand surgery 01/2023, colon resection 04/30/24, Heart stints 11/16/2024. * Hospitalization/Major Diagno stic Procedure: H MH 01/2022, - heart attach 04/30/2024-06/28/24, Septic 07/24/2024, [facility]- abd pain 07/2024, 09/2024, [facility] 11/2024. * Family History: F ather: , Cholesterol , lung issues, diagnosed with Heart Disease. M other: . P aternal Grand Father: . P aternal Grand Mother: , diagnosed with Heart Disease. M aternal Grand Father: . M aternal Grand Mother: . P aternal uncle: alive, diagnosed with Heart Disease. M aternal uncle: alive. M aternal aunt: alive. Siblings: alive. C abida: alive. 2 sister(s) - healthy. 2 son(s) , 1 daughter(s) - healthy. . * Social History: R ecreational drug use: yes, Past use:. Exercise: yes. Home smoke detector use: yes. Caffeine: yes, frequency:coffee, soft drinks, tea. Living Will: No. Alcohol: no. Sexually active: no. Travel outside [place]: no. 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 Tobacco Control (Standard) T obacco use: F ormer smoker, H ow long has it been since you last smoked? 6 -12 months. * Medications: T aking Aspirin 81 81 [...] tab Orally Twice a day , Taking Rosuvastatin Calcium 40 [...] tab(s) orally every 24 hours , Taking Breztri Aerosphere 160-9-4.8 MCG/ACT Aerosol 2 puffs Inhalation Twice a day , Taking traZODone HCl 100 MG Tablet 1 tablet at bedtime as needed Orally Once a day , Taking Biotin 1000 MCG Tablet 1 tablet Orally Once a day , Discontinued Famotidine 20 MG Tablet 1 tablet Orally bid before breakfast and supper t, Medication List reviewed and reconciled with the patient * Allergies: L ATEX GLOVES, Percocet: stomach upset, sweating - Side Effects. Objective: * Vitals: N urse: KJ, Pain: 5, Temp: 97.5, RR: 18, HR: 80, BP: 128/64, Ht: 5 ft 1 in, Wt: 129.6, BMI:24.49. * Examination: G eneral Examination: General P leasant and Cooperative, NAD on RA,. Heart: R egular Rate and Rhythm, no murmur, rubs or gallops. Lungs: L CTAB, No wheezes, crackles or rhonchi, Good air movement,. Assessment: * Assessment: 1. A therosclerosis of chilkoot coronary artery of ch[place] heart without angina pectoris - I25.10 (Primary) 2 . C . difficile colitis - A04.72 3 . S tatus post non-ST elevation myocardial infarction (NSTEMI) - I25.2 4 . S ystolic CHF, chronic - I50.22 5 . H ospital discharge follow-up - Z09 Plan: * Treatment: 2. C . difficile colitis Notes: No treatment during admit due to no output. Continue with previous plan of probiotics and famotidine. 3. S tatus post non-ST elevation myocardial infarction (NSTEMI) Notes: Diagnosed with NSTEMI during admit with 4 LAD stents placed. Started on prasugrel. [facility] Cardiology recommends outpatient RYANNE/ARB/SGLT2 for systolic dysfunction as outpatient. Continue prasugrel, aspirin, metoprolol, and crestor 4. S ystolic CHF, chronic Start Losartan Potassium Tablet, 25 MG, 1 tablet, Orally, Once a day, 30 days, 30 Tablet, Refills 1. Notes: Diagnosed during admission. LVEF 45% Needs GDMT. Will initiate cautiously due to body habitus and intolerance to certain medications. Currently tolerating metoprolol. Start Losartan 25mg QD. Follow up in 2 weeks. Has appointment with cardiology this (12/27). 5. H ospital discharge follow-up Notes: Diagnosed as NSTEMI during admit with 4 LAD stents placed. Started on prasugrel 10mg QHS Has follow up with cardiology on 12/27/2024 Will initiate Losartan 25mg QD today with follow up in 2 weeks for evaluation 6. O thers Notes: spent greater than 40 minutes in direct patient care with >50% of time spent on counseling on diagnoses and treatments. * Follow Up: 2 Weeks,prn * * Sign off status: Completed true * Provider: Dayana Quiroz MD Date: 02/24/2024 Generated for Aleshiai alayna/Fior/eTransmitting on: 02/27/2024 02:05 PM EST History and Physical Notes * HPI (History of Present Illness) Category Sub-Category Detail Notes Category Not es Intrim History Transition of care v isit from hospital Date of admission to hospital:: 12/17/2024 Date of receipt of hospital admission re port:: 12/18/2024 Date of discharge from hospital:: 2024 Date of receipt of hospital discharge licea mmary:: 12/18/2024 Discharge medications review ed and reconciled from hospital:: Medications left unchanged gen Patient presents to clinic for transfer of care following admit to [facility] on 12/17/2024. Discharged 12/18/2024. She was in [place] with family when she started having severe left-sided chest pain with radiation to left arm. Initial troponin was elevated with diffuse ST depressions. Diganosed with NSTEMI and she was taken to the [facility] where 2 previous grafts gone down . She received 4 stents to the LAD with reperfusion - Echo completed by cardiology: LVEF 45%, started prasugrel, continued aspirin, metoprolol, and crestor, with consideration to initiate RYANNE/ARB/SGLT2 after discharge - Known C. diff carrier: no high output during admit. No treatment given Overall, she received 4 stents to LAD and started prasugrel. No other modifications to medications made. She is here for re-assessment Examination Category Sub-Category Detail Notes Category Not es General Examination Heart: Regular Rate and Rhythm, no murmur, rubs or gallops Lungs: LCTAB, No wheezes, c rackles or rhonchi, Good air movement, General Pleasant and Coopera tive, NAD on RA,
--- OUTSIDE RECORDS SUMMARY | 2024-12-27 14:04 | XMS_ITS | Clinical Summary ---
Author Organization [facility] Address [address] [place] [address] Care Team Providers Care Valve Grinder Name Role Phone Provider, No Known Primary Care Provider [phone] Allergies No known active allergies Medications propranolol [...] 11/03/2019 INFLUENZA VACCINE 09/14/2024 Insurance Care Teams Valve Grinder Relationship Specialty Start Date End Date Provider, No Known [place] [id number] PCP - General 01/12/16
--- OUTSIDE RECORDS SUMMARY | 2024-12-27 14:04 | XMS_ITS | Encounter Summary ---
Author Organization [facility] Address [address] [place] [address] Care Team Providers Care Belting And Webbing Inspector Name Role Phone Pcp, No Primary Care Provider Champ Butler MD Primary Care Provider + [phone] Encounter Details Date Type Department Care Team (Late st Contact Info) Description 05/21/2024 Lab Requisition [facility] [address] [place] [address] Tom Dyson MD [address] [facility] [address] [place] [address] Encounter for general adult medical examination without [...] as of this encounter Plan of Treatment Scheduled Procedures [...] at day 1 05/22/2024 8:46 AM EDT [facility] Swab (Nares and Jacey Rectal) 05/21/2024 11:00 AM EDT 05/21/2024 11:55 AM EDT us Tom Dyson MD LAB MICROBIOLOGY - GEN ERAL ORDERABLES Final Result [facility] [address] [place] [address] documented in this encounter Visit Diagnoses Diagnosis [...] documented as of this encounter Care Teams Belting And Webbing Inspector Relationship Specialty Start Date End Date Pcp, No [address] [place] [address] PCP - General Family Medicine 04/04/24 06/28/24 Champ Quiroz MD [address] [place] [address] PCP - General Internal Medicine 06/29/24 documented as of this encounter
--- OUTSIDE RECORDS SUMMARY | 2024-12-27 14:04 | XMS_ITS | Encounter Summary ---
Author Organization [facility] Address [address] [place] [address] Care Team Providers Care Licensed Occupational Therapy Assistant Name Role Phone Pcp, No Primary Care Provider Champ Butler MD Primary Care Provider + [phone] Encounter Details Date Type Department Care Team (Late st Contact Info) Description 05/14/2024 Lab Requisition [facility] [address] [place] [address] Tom Dyson MD [address] [facility] [address] [place] [address] Encounter for general adult medical [...] in the past 12 m [facility], were you homeless or living in [...] at day 1 05/15/2024 11:17 AM EDT [facility] Swab (Nares and Jacey Rectal) 05/14/2024 8:24 AM EDT 05/14/2024 2:12 PM EDT us Tom Dyson MD LAB MICROBIOLOGY - GEN ERAL ORDERABLES Final Result [facility] [address] [place] [address] documented in this encounter Visit Diagnoses Diagnosis [...] documented as of this encounter Care Teams Licensed Occupational Therapy Assistant Relationship Specialty Start Date End Date Pcp, [place] [address] PCP - General Family Medicine 04/04/24 06/28/24 Champ Quiroz MD [address] [place] [address] PCP - General Internal Medicine 06/29/24 documented as of this encounter
--- OUTSIDE RECORDS SUMMARY | 2024-12-27 14:05 | XMS_ITS | Patient Health Record ---
Author Organization [facility] Address [address] [place] [address] Care Team Providers Care Dice Spotter Name Role Phone Michaelle Rivas Primary Care Provider Champ Quiroz Unavailable [phone] Migration, Provider Unavailable Unavailable Allergies Allergen (clinical drug ingredient) Drug/Non Drug Allergy documented on EMR Reaction Allergy Type Onset Date Status LATEX GLOVES (uncoded) Unknown Allergy Active acetaminophen / oxycodone Percocet stomach upset, sweating Drug Allergy Active Results Component Value Reference Range Notes M-Complete [...] 1.015 Ketone neg Bili neg Glucose neg X ray : Chest Reviewed date:10/19/2024 08:17:12 AM Interpretation: Performing Lab: Notes/Report: COMPREHENSIVE METABOLIC PANE L ([id number]) Reviewed date:09/03/2024 09:41:31 AM Interpretation: Performing Lab:[facility], [facility], [facility]Q[address] Wil Bro Notes/Report: NON-FASTING; NON-FASTING GLUCOSE 104 [...] date:09/03/2024 09:41:31 AM Interpretation: Performing Lab:[facility], [facility], [place] AstorgaTkpbTW[address] Wil Henri Bro Notes/Report: NON-FASTING; NON-FASTING WHITE [...] MPV 10.0 7.5-12.5 fL ABSOLUTE NEUTROPHILS 4948 5416-8052 cells/uL ABSOLUTE LYMPHOCYTES 2503 850-3900 cells/uL ABSOLUTE [...] 1 tablet Orally Once a day Active Breztri Aerosphere 160-9-4.8 MCG/ACT 2 puffs Inhalation Twice a day 12/05/2024 Active Combivent Respimat 20-100 MCG/ACT INHALE 1 PUFF BY MOUTH 4 TIMES DAILY; Duration: 30 days prn Active Biotin 1000 MCG 1 tablet Orally [...] once a day; Duration: 90 days Active buPROPion HCl ER (XL) 300 MG 1 tab(s) or ally every 24 hours; Duration: 30 days Active Losartan Potassium 25 MG 1 tablet Orally Once a day; Duration: 30 days 12/24/2024 Active predniSONE 20 MG 1 tablet with food o r milk Orally Once a day; Duration: 7 days 11/22/2024 Active Methocarbamol 750 MG 1 tablet Orally every 6 hrs; Duration: 10 days As needed 11/22/2024 Active Azelastine-Fluticasone 137-50 MCG/ACT 2 sprays Nasally Twice a day; Duration: 30 days 11/12/2024 Active Immunizations Vaccine Route Administration Date Status [...] Status Risk Notes Problem Generalized anxiety disorder (45493611) Generalized anxiety disorder (F41.1) Active confirmed Problem Primary insomnia (9519235) Primary insomnia (F51.01) Active confirmed Problem Psychophysiologic insomnia (609459876) Psychophysiologic insomnia (F51.04) Active confirmed Problem Essential tremor (339325635) Essential tremor (G25.0) Active confirmed Problem Chronic rhinitis (26167859) Chronic rhinitis (J31.0) Active confirmed Problem Panlobular emphysema (4434177) Panlobular emphysema (J43.1) Active confirmed Problem Left side sciatica (354053350127921) Sciatica, left side (M54.32) Active confirmed Problem Sciatica (99045869) Lumbago with sciatica, right side (M54.41) Active confirmed Problem Sciatica (05290301) Lumbago with sciatica, left side (M54.42) Active confirmed Problem Colostomy present (982124105) Colostomy status (Z93.3) Active confirmed Problem Mixed anxiety and depressive disorder (706589411) Depression with anxiety (F41.8) Active confirmed Problem Anxiety (62092050) Anxiety (F41.9) Active confi rmed Problem Vitamin B12 deficiency (non anemic) (08952600) B12 deficiency (E53.8) Active confirmed Problem Acute exacerbation of chronic obstructive airways disease (809378570) COPD exacerbation (J44.1) Active confirmed Problem Atherosclerosis of coronary artery without angina pectoris (577968101587038) Atherosclerosis of white earth coronary artery of white earth heart without angina pectoris (I25.10) Active confirmed Problem Chronic systolic heart failure (111586223) Systolic CHF, chronic (I50.22) Active confirmed Problem Disorder of skin AND/OR subcutaneous tissue (01659508) Skin lesions (L98.9) Active confirmed Problem Old myocardial infarction (3720384) Status post non-ST elevation myocardial infarction (NSTEMI) (I25.2) Active confirmed Vital Signs Heart Rate 80 /min 12/24/2024 Temperature 97.5 degrees Fahrenheit 12/24/2024 Blood pressure diastolic 64 mm Hg 12/24/2024 Height 5 ft 1 in in 12/24/2024 Blood pressure systolic 128 mm Hg 12/24/2024 Weight 129.6 lbs 12/24/2024 BMI 24.49 kg/m2 12/24/2024 Encounters Encounter Location Date Provider Diagnosis [facility] [address] [facility] [address] [place], [employer] [address] 05/19/2024 Provider [place] Depression with anxiety F41.8 and COPD exacerbation J44.1 [facility] [place] [address] [address] 12/29/2023 Champ Richie Acute bronchitis, unspecified organism J20.9 ; Subacute cough R05.2 and Sciatica, left side M54.32 [facility] [place] [address] [address] 04/20/2024 Michaelle McNees Depression with anxi ety F41.8 and COPD exacerbation J44.1 [facility] [address] [facility] [address] [place] [address] 07/02/2024 Champ Quiroz Tremor R25.1 ; Atherosclerosis of white earth coronary artery of white earth heart without angina pectoris I25.10 ; Anxiety F41.9 ; Hospital discharge follow-up Z09 ; Dysuria R30.0 and Colostomy present Z93.3 [facility] [address] [place] [address] 07/18/2024 Champ Quiroz Pelvic pain in femal e R10.2 and Panlobular emphysema J43.1 [facility] [address] [place] [address] 07/30/2024 Champ Quiroz C. difficile colitis A04.72 ; Primary insomnia F51.01 ; Colostomy status Z93.3 and Hospital discharge follow-up Z09 [facility] [address] [place] [address] 08/20/2024 Champ Quiroz Atherosclerosis of white earth coronary artery of white earth heart without angina pectoris I25.10 ; Colostomy status Z93.3 and Hospital discharge follow-up Z09 [facility] [address] [place] [address] 08/30/2024 Michaelle McNees Vertigo R42 ; C. difficile colitis A04.72 and Atherosclerosis of white earth coronary artery of white earth heart without angina pectoris I25.10 [facility] [address] [facility] [address] [place] [address] 10/01/2024 Champ Besnaun Generalized anxiety disorder F41.1 ; Atherosclerosis of white earth coronary artery of white earth heart without angina pectoris I25.10 ; Colostomy status Z93.3 and Hospital discharge follow-up Z09 [facility] [address] [place] [address] 10/11/2024 Michaelle McNees Acute cough R05.1 [facility] [address] [place] [address] 11/12/2024 Champ Richie Subacute cough R05.2 and Chronic rhinitis J31.0 [facility] [address] [place] [address] 11/22/2024 Michaelle McNees Acute bilateral low back pain without sciatica M54.50 ; Lower abdominal pain R10.30 and History of Clostridium difficile infection Z86.19 [facility] [address] [place] [address] 12/05/2024 Champ Quiroz Atherosclerosis of white earth coronary artery of white earth heart without angina pectoris I25.10 ; 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 difficile colitis A04.72 ; Status post non-ST elevation myocardial infarction (NSTEMI) I25.2 ; Systolic CHF, chronic I50.22 and Hospital discharge follow-up Z09 [facility] [address] [place] [address] 12/26/2024 Champ Quiroz [facility] [address] [place] [address] 02/06/2024 Michaelle McNees [facility] [address] [place] [address] 04/20/2024 Michaelle McNees [facility] [address] [place] [address] 07/20/2024 Michaelle McNees Hypokalemia E87.6 [facility] [address] [place] [address] 07/20/2024 Michaelle McNees [facility] [address] [place] [address] 07/24/2024 Michaelle McNees [facility] [address] [place] [address] 08/09/2024 Michaelle McNees [facility] [place] [address] [place] [address] 09/03/2024 Michaelle McNees [facility] [address] [place] [address] 09/25/2024 Michaelle McNees Primary insomnia F51 .01 and Enterocolitis K52.9 [facility] [address] [place] [address] 09/25/2024 Champ Besson Primary insomnia F51 .01 and Enterocolitis K52.9 [facility] [address] [place] [address] 10/05/2024 Michaelle McNees [facility] [address] [place] [address] 10/11/2024 Michaelle McNees [facility] [address] [place] [address] 11/21/2024 Michaelle McNees Acute abdominal pain R10.9 and Diarrhea, unspecified type R19.7 [facility] [address] [place] [address] 11/22/2024 Michaelle McNees Diarrhea, unspecifie d type R19.7 [facility] [address] [place] [address] 11/23/2024 Michaelle McNees [facility] [address] [place] [address] 11/26/2024 Champ Besson [facility] [address] [place] [address] 12/18/2024 Michaelle McNees Assessments Encounter Date Diagnosis (ICD [...] be helpful for her 07/02/2024 Atherosclerosis of white earth coronary artery of white earth heart without angina pectoris (ICD-10 - I25.10) Status post bypass. On appropriate medication 07/18/2024 Panlobular emphysema (ICD-10 - J43.1) Stable. Off cigarettes, continue inhalers. 07/18/2024 Pelvic pain in female (ICD-10 - R10.2) FOREPART REDUCER evaluation. Possible ongoing problems from catheter but [...] with [facility] 08/20/2024 Atherosclerosis of white earth coronary artery of white earth heart without angina pectoris (ICD-10 - I25.10) [...] colitis (ICD-10 - A04.72) Extensive review of [facility] and [facility] records Abdomen soft, nontender Continue Vanc Keep Fu with Dr. Troncoso [facility] 09/25/2024 Primary insomnia (ICD-10 - [...] with the anxiety. We refered her to [facility] and the Medicare office to see if she can get in contact with a therapist and a professor of social work. 10/01/2024 Atherosclerosis of white earth coronary artery of white earth heart without angina pectoris (ICD-10 - I25.10) [...] with methocarbamol. Xray pending 12/05/2024 Atherosclerosis of white earth coronary artery of white earth heart without angina pectoris (ICD-10 - I25.10) Discussed patient's chest pain and hospital workup with her. She does not think that her pain is from her heart. She also does not think it is from reflux. She thinks it is from her lungs. See notes below. 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 4 LAD stents placed with reperfusion. Tolerating statin therapy well. Continue statin therapy as directed 12/24/2024 C. difficile colitis (ICD-10 - A04.72) No treatment during admit due to no output. Continue with previous plan of probiotics and famotidine. 12/24/2024 Status post non-ST elevation myocardial infarction (NSTEMI) (ICD-10 - I25.2) Diagnosed with NSTEMI during admit with 4 LAD stents placed. Started on prasugrel. [facility] Cardiology recommends outpatient RYANNE/ARB/SGLT2 for systolic dysfunction as outpatient. Continue prasugrel, aspirin, metoprolol, and crestor 07/02/2024 Anxiety (ICD-10 - F41.9) 12/05/2024 Panlobular emphysema (ICD-10 - J43.1) Patient's only been using albuterol as needed on a very random basis. She notes that her lungs burn when she gets outside and takes a walk and the drier tender air hits her lungs. She thinks this [...] Enterocolitis (ICD-10 - K52.9) 08/30/2024 Atherosclerosis of white earth coronary artery of white earth heart without angina pectoris (ICD-10 - I25.10) Decrease metoprolol for low normal blood pressure and fatigue Keep FU with [facility] cardiology next week 12/29/2023 Sciatica, [...] done in the hospital. Personally reconciled medication. 12/24/2024 Systolic CHF, chronic (ICD-10 - I50.22) [...] follow up in 2 weeks for evaluation 12/05/2024 Primary insomnia (ICD-10 - F51.01) 07/02/2024 Dysuria (ICD-10 - R30.0) Trial of Pyridium. Probable post cath issues 07/02/2024 Colostomy present (ICD-10 - Z93.3) Stable. Continue follow-up 12/05/2024 Other Patient notes insomnia is better but not where she would like to be on trazodone 50, will bump up to 100 12/24/2024 Other spent greater than 40 minutes in direct patient care with >50% of time spent on counseling on diagnoses and treatments. Plan Of Treatment Pending Test Test Name Order Date MRI : Lumbosacral Spine 05/06/2006 MRI : Lumbosacral Spine 06/17/2006 X ray : Spines, Lumbosacral 11/22/2024 CT Scan : Abdomen, with contrast 007 CT Scan : Abdomen, with contrast 007 N-cbc 10/13/2006 MRI : Coccyx 06/17/2006 Mammogram : Bilateral 12/08/2021 M-Diarrhea Panel, PCR 01/25/2022 M-Diarrhea Panel, PCR 12/31/2022 M-C. Diff Toxin Assay 11/22/2024 Physical Therapy Eval and Treat 10/29/19 23 Future Test Test Name Order Date BASIC METABOLIC PANEL (27987) 07/23/2024 MAGNESIUM (622) 07/23/2024 Next Appt Details Provider Name:Champ Quiroz, 01/07/2025 04:30:00 PM, [address], [place], [address], Insurance Providers Payer Name Payer Address Payer Phone Subscriber Number Group Number Insured Name Patient Relationship to Insured Coverage Start Date Coverage End Date [employer] [address] [address] [place] [address] [phone] [id number] Rere Reese Self - patient is [...] at [facility] colitis Surgical History Surgery Date(Month/Year) lt rotator cuff 2020 rt hand surgery 01/2023 colon resection 04/30/24 Heart stints 11/16/2024 Hospitalization History Reason Date(Month/Year) [facility] 11/2024 09/2024 [facility]- abd pain 07/2024 Septic 07/24/2024 - heart attach 04/30/2024-06/28/24 [facility] 01/2022
--- OUTSIDE RECORDS SUMMARY | 2024-12-27 14:05 | XMS_ITS | Clinical Summary ---
Author Organization [facility] Address [address] [place] [address] Care Team Providers Care Transitions Rn Care Coordinator Name Role Phone Champ Quiroz MD Primary Care Provider + [phone] Allergies Active Allergy Reactions Criticality Noted Date [...] 1 mgOral 2 times daily, Reported on 12/11/2024 fluticasone (Flonase) 50 MCG/ACT nasal spray Administer 1 spray into each nostril daily. Shake gently. Before first use, prime pump. After use, clean tip and replace cap. Active oxyCODONE (Roxicodone) 5 MG immediate release tablet Take 1 tablet by mouth every 6 hours as needed for severe pain. 5 tablet Active Additional Information Patient not taking.Reported on 12/11/2024 acetaminophen (Tylenol) 500 MG tablet Take 2 tablets by mouth every 6 hours. 100 tablet Active methocarbamol (Robaxin) 500 MG tablet Take 2 tablets by mouth 4 times a day. 14 tablet Active naloxone (Narcan) 4 mg/0.1 mL nasal spray 1. Give 1 spray in nostril for no/slow breathing or cannot wake after opioid use 2. Call 911 3. Repeat in other nostril if symptoms continue 1 each Active Additional Information Patient not taking.Reported on 12/11/2024 famotidine (Pepcid) 20 MG tablet Active Active Problems Problem Noted Date Diagnosed Date Anal fistula 12/11/2024 Right lower quadrant abdominal pain 09/18/2024 Assessment [...] tachycardia 06/10/2024 Incomplete RBBB 06/10/2024 Tremor 06/10/2024 S/P CABG x 4 05/06/2024 Overview (06/14/2024): [...] Problem Noted Date Diagnosed Date Resolved Date Enteritis 09/18/2024 12/23/2024 Assessment & Plan (09/22/2024 1:46 PM EDT): [...] infection; negative GI panel Volume depletion, unspecified 09/18/2024 09/20/2024 Assessment & [...] 06/11/2024 Overview (05/29/2024): Hospital delirium Delirium precautions Post-op pain 05/25/2024 12/16/2024 Ileus 05/23/2024 06/11/2024 Overview (05/28/2024): S/p colectomy [...] Encounters Date Type Department Care Team Description 12/26/2024 Telephone [facility] [address] [place] [address] Saul Rose MD 12/26/2024 Telephone [facility] General Surgery [address], [address] [place] [address] Rina Mason RN 12/11/2024 11:15 AM EDT Office Visit [facility] Surgery [address], [address] [place] [address] Lidia Troncoso MD Enteritis (Primary Dx); S/P colon resection; History of infection of intestine due to Clostridium difficile; S/P colostomy (CMS/HCC) 12/11/2024 Travel 10/04/2024 Telephone [facility] Surgery [address], [address] [place] [address] Viri Ibrahim from Last 3 Months Family History Medical [...] time in the past 12 m [facility], were you homeless or living in a prison (including now)? No 09/21/2024 CAGE ASSESSMENT Answer [...] drink first t jaime in the morning (EYE-MEAT HOSTESS) to steady your nerves or to get rid of a hangover? 0 09/17/2024 CAGE Questionnaire Score 0 025 Utilities Answer Date Recorded In the past 12 months has th e [employer], gas, oil, or water [employer] threatened to shut off services in your [...] Mass Index 25.76 12/11/2024 11:05 AM EDT Plan of Treatment Scheduled Procedures Name Priority Associated Diagnoses Date/Ti me INCISION AND DRAINAGE, ABSCE SS, ISCHIORECTAL OR INTRAMURAL, WITH FISTULECTOMY OR FISTULOTOMY Anal fistula Health Maintenance Due Date Last Done Comments [facility]-HIV Screening 1969 [facility]-Hepatitis C Screening 1969 [facility]-/Child/Adol SDOH Screenings 1969 [facility]-Hepatitis A Vaccines (1 of 2 - Risk 2-dose series) 1988 [facility]-Hepatitis B Vaccines (1 of 3 - 19+ 3-dose series) 1988 [facility]-Pap Smear 1990 [facility]-Cervical Cancer Screening 11/03/1999 [facility]-HPV/Cotest 11/03/1999 [facility]-Pneumococcal Vaccine: 50+ Years (2 of 2 - PPSV23, PCV20, or PCV21) 09/19/2014 07/25/2014 CT Colonography 2014 Colonoscopy 2014 FIT-DNA 2014 FIT 2014 FOBT 2014 Sigmoidoscopy 2014 [facility]-Colorectal Cancer Screening 2014 [facility]-Breast Cancer Screening 11/03/2019 [facility]-Zoster Vaccines (1 of 2) 11/03/2019 GAD-TTLYS-23 Vaccine (1 - 2024- season) 2024 [facility]-Influenza Vaccine (#1) 10/15/202412/08, 11/06/2018, 01/13/2007 [facility]- SDOH Screenings 03/24/2025 [facility]-Adult SDOH Screenings 03/24/2025 09/21/2024 [facility]-Depression Screening 07/18/2025 025, 06/29/2024, 06/29/2024 [facility]-DTaP,Tdap,and Td Vaccines (2 - Td or Tdap) 01/17/2033 01/17/2023 [facility]-Obesity Intervention Completed 025, 09/17/2024, 08/21/2024, Additional history exists HPV Vaccines Aged Out No longer eligi [...] Jd [employer] Implanted Type Area Histotechnologist Device Identifier Shelf Expiration Date Model / Serial / Lot Pledget Ptfe [place] 4.8mm X 6mm - [id number] Implanted:05/06 by Maite Austin MD at [facility] (Quantity not on file) [id number] / / Additional Health Concerns Infection Onset Date Last [...] 12:06 PM 05/06/2024 8:27 PM Care Teams Transitions Rn Care Coordinator Relationship Specialty Start Date End Date Champ Quiroz MD [address] [place] [address] [place] [address] PCP - General Internal Medicine 06/29/24
--- OUTSIDE RECORDS SUMMARY | 2024-12-27 14:06 | XMS_ITS | Encounter Summary ---
Author Organization Healthcare Address [address] [place] [address] Care Team Providers Care Artists' Model Name Role Phone Champ Quiroz MD Primary Care Provider [phone] Encounter Details Date Type Department Care Team (Late st Contact Info) Description 12/26/2024 Telephone [facility] General Surgery [address], [address] [place] [address] Rina Maosn, RN [facility] Social History Tobacco [...] time in the past 12 m [facility], were you homeless or living in a group home (including now)? No 09/21/2024 CAGE ASSESSMENT [...] drink first t jaime in the morning (EYE-TRAILER BODY ASSEMBLER) to steady your nerves or to get rid of a hangover? 0 09/17/2024 CAGE Questionnaire Score 0 025 Utilities Answer Date Recorded In the past 12 months has th e [employer], oil, or water [employer] threatened to shut off services in your [...] Telephone Encounter - Rina Mason RN - 12/26/2024 1:15 PM EST Patient has had another heart attack last week and stents placed. Will need to postpone surgery with Dr. Troncoso until she has completed cardiology clearance. Has an appointment with Cardiology tomorrowand will update me after. Removing patient from 12/31 OR schedule at this time. Patient verbalized understanding. documented in this encounter Plan of Treatment [...] documented as of this encounter Care Teams Artists' Model Relationship Specialty Start Date End Date Champ Quiroz MD [address] [place] [address] [place] [address] PCP - General Internal Medicine 06/29/24 documented as of this encounter
--- OUTSIDE RECORDS SUMMARY | 2024-12-27 14:06 | XMS_ITS | Encounter Summary ---
Author Organization Healthcare Address [address] [place] [address] Care Team Providers Care Test Evaluator Name Role Phone Champ Quiroz MD Primary Care Provider [phone] Encounter Details Date Type Department Care Team (Late st Contact Info) Description 12/26/2024 Telephone [facility] [address] [place] [address] Saul Rose MD [address] [facility] [address] [place] [address] Social History Tobacco Use Types [...] in the past 12 m [facility], were you homeless or living [...] drink first t jaime in the morning (EYE-CRIME PREVENTION WORKER) to steady your nerves or to get [...] documented as of this encounter Care Teams Test Evaluator Relationship Specialty Start Date End Date Champ Quiroz MD [address] [place] [address] [place] [address] PCP - General Internal Medicine 06/29/24 documented as of this encounter
--- OUTSIDE RECORDS SUMMARY | 2024-12-27 14:06 | XMS_ITS | Encounter Summary ---
Author Organization Healthcare Address [address] [place] [address] Care Team Providers Care Assembler [employer] Name Role Phone Champ Quiroz MD Primary Care Provider [phone] Encounter Details Date Type Department Care Team (Latest Contact Info) Description 12/11/2024 Travel Social History Tobacco Use Types Packs/Day [...] any time in the past 12 m [facility], were you homeless or living [...] drink first t jaime in the morning (EYE-CHILD CAREGIVER PRIVATE HOME) to steady your nerves or to get [...] 1 therapy visit. Occupational Therapy No Jd Sabiloln documented as of this encounter Visit Diagnoses [...] documented as of this encounter Care Teams Assembler [employer] Relationship Specialty Start Date End Date Champ Quiroz MD [address] [place] [address] [place] [address] PCP - General Internal Medicine 06/29/24 documented as of this encounter
--- OUTSIDE RECORDS SUMMARY | 2024-12-27 14:06 | XMS_ITS | Encounter Summary ---
Author Organization Healthcare Address [address] [place] [address] Care Team Providers Care Block Cleaner Name Role Phone Champ Quiroz MD Primary Care Provider [phone] Encounter Details Date Type Department Care Team (Late st Contact Info) Description 07/21/2024 Orders Only External Location [address] [place] [address] Sundeep Fisher MD [address] [place] [phone] Social History Tobacco Use Types Packs/Day [...] the past 12 months has th e [employer], 71lbs, oil, or water [employer] threatened to shut off services in [...] documented as of this encounter Care Teams Block Cleaner Relationship Specialty Start Date End Date Champ Quiroz MD [address] [place] [address] [place] [address] PCP - General Internal Medicine 06/29/24 documented as of this encounter
[2024-12-27 14:41] LABS: Hematocrit 32.1 % (37.0-47.0); Hemoglobin 10.1 g/dL (12.2-16.2); Immature Granulocytes % 0.4 %; Mean Corpuscular HGB Conc 31.5 g/dL (31.8-35.4); Mean Corpuscular Hemoglobin 27.9 pg (27.0-31.2); Mean Corpuscular Volume 88.7 fl (81-99); Nucleated Red Blood Cells % 0 %; Platelet Count 530 K/mm3 (142-424); Red Blood Count 3.62 M/mm3 (4.20-5.40); Red Cell Distribution Width-SD 43.8 fL; White Blood Count 10.8 K/mm3 (4.8-10.8)
[2024-12-27 15:16] LABS: Anion Gap 9.6 mEq/L (5-15); Blood Urea Nitrogen 6 mg/dl (7-17); Calcium 9.0 mg/dl (8.4-10.2); Carbon Dioxide 26 mmol/L (22.0-30.0); Chloride 103 mmol/L (98-107); Creatinine,Serum 0.80 mg/dl (0.52-1.04); Estimated Glomerular Filt Rate 74 ml/min (>60); GFR (African American) 90 ML/MIN (>60); Glucose 98 mg/dl (74-100); Potassium 3.6 mmoL/L (3.5-5.1); Sodium 135 mmol/L (136-145)
== END 2024-12-27 23:59 | disposition home or self-care (01) ==
LOC: LAB 14:02
PROVIDERS: PCP Internal Medicine Adolescent Medicine; Visit Provider Internal Medicine
DX: I21.4 Non-ST elevation (NSTEMI) myocardial infarction (principal)
CPT/HCPCS: 36415; 80048; 85025

== ENCOUNTER 2025-01-03 07:47 | Day surgery (SDC) | payer MEDICAID, SELFPAY ==
--- NOTE | 2025-01-01 12:09 | PC.NURSE ---
11/21/2024 talked to pt and she is having a colon recertion in Dec and will call when released.
[2025-01-03] VITALS (14 sets, daily range): BP systolic 98–143; BP diastolic 53–83; PULSE 70–79; RESP 15–20; O2SAT 95–99; BMI 25.7
--- NOTE | 2025-01-03 07:02 | IR_ITS ---
APPROVED REPORT Patient Location: Outpatient PROCEDURES Selective coronary angiogram Drug-eluting stent deployment to the ostial proximal mid and distal dominant right coronary in a contiguous manner Informed consent was obtained prior to the procedure. COMPLICATIONS NONE Estimated Blood Loss: LESS THAN 10 ML TECHNIQUE One percent lidocaine used to anesthetize the right anterior aspect of the wrist. The right radial artery was accessed via the Seldinger technique. A 6 Maltese sheath was placed in the right radial artery. 2.5 mg of Verapamil, 800 mcg of nitroglycerin, 1mg Lidocaine and therapeutic Heparin were given through the arterial sheath. The 3 DRC catheter was also used to perform selective coronary angiogram. Therapeutic heparin was already administered giving a therapeutic ACT. The guide catheter was placed in right coronary artery followed by Choice PT extra-support wire placed distally. Primary stenting could not be performed therefore a 2.5 x 15 mm noncompliant balloon was deployed at 20 paula in the proximal and midportion of the right coronary artery to predilate. Following this a 2.75 x 26 mm [place] frontier stent was placed in the proximal right coronary artery and deployed at 20 paula. An additional 2.75 x 38 mm Frannie frontier stent was placed distal to the for stent yet still overlapping and deployed at 20 paula. An additional 2.5 x 22 mm [place] frontier stent was placed distal to the second stent yet still overlapping and deployed at 20 paula. The balloon was brought back and deployed at 24 paula throughout the 2.75 mm stent. DANIEL-3 flow was present before and after the procedure. 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 Dual antiplatelet therapy 2. Cardiac rehabilitation 3. Avoidance of tobacco products 4. Risk factor modification 5. LDL less than 55 to be achieved with high intensity statin Electronically signed by : Jd Bentley MD 01/03/2025 12:59:59
[2025-01-03 08:16] LABS: Hematocrit 34.0 % (37.0-47.0); Hemoglobin 11.4 g/dL (12.2-16.2); Immature Granulocytes % 0.5 %; Mean Corpuscular HGB Conc 33.5 g/dL (31.8-35.4); Mean Corpuscular Hemoglobin 28.9 pg (27.0-31.2); Mean Corpuscular Volume 86.3 fl (81-99); Nucleated Red Blood Cells % 0 %; Platelet Count 542 K/mm3 (142-424); Red Blood Count 3.94 M/mm3 (4.20-5.40); Red Cell Distribution Width-SD 41.6 fL; White Blood Count 10.8 K/mm3 (4.8-10.8)
[2025-01-03 08:30] LABS: Anion Gap 10.2 mEq/L (5-15); Blood Urea Nitrogen 7 mg/dl (7-17); Calcium 8.8 mg/dl (8.4-10.2); Carbon Dioxide 25 mmol/L (22.0-30.0); Chloride 103 mmol/L (98-107); Creatinine Clearance Estimated 69 mL/min (50-200); Creatinine,Serum 0.90 mg/dl (0.52-1.04); Estimated Glomerular Filt Rate 65 ml/min (>60); GFR (African American) 79 ML/MIN (>60); Glucose 103 mg/dl (74-100); Potassium 3.2 mmoL/L (3.5-5.1); Sodium 135 mmol/L (136-145)
[2025-01-03] MEDS: MIDAZOLAM HCL 1MG/ML 5ML VIAL 1 MG IV (10:56)
[2025-01-03] MEDS: FENTANYL 100MCG/2ML VIAL 50 MCG IV (10:56)
[2025-01-03] MEDS: HEPARIN 1,000 UNITS/500ML NS (CATH LAB) 3000 UNIT IV (10:56)
[2025-01-03] MEDS: VERAPAMIL 2.5MG/ML 2ML VIAL 2.5 MG IV (10:57)
[2025-01-03] MEDS: LIDOCAINE 1% 10ML MDV 10 ML IJ (10:57)
[2025-01-03] MEDS: NITROGLYCERIN 800MCG/8ML SYR (CATH LAB) 800 MCG IA (10:57)
[2025-01-03] MEDS: HEPARIN 1,000 UNITS/ML 10ML VIAL (CATH LAB) 5000 UNIT IV (10:57)
[2025-01-03] MEDS: 0.9 % SODIUM CHLORIDE 500 ML 25 ML IV (10:58)
[2025-01-03] MEDS: IOPAMIDOL-370 (76%);100ML BOTTLE 60 ML IV (11:46)
[2025-01-03 11:49] LABS: CATHL Activated Clotting Time > 400 SEC (74-125)
[2025-01-03] MEDS: NITROGLYCERIN SPRAY 0.4MG/SPRAY 4.9GM 0.4 MG TL ×2 (12:38→12:55)
--- NOTE | 2025-01-03 13:10 | SUR.PHASEII ---
pt reports chest pain 6/10 after 2 sprays of sublingual nitro. dr aguilar notified. states he will order oral pain meds. no ekg changes noted on ekg strip. blood pressure and heart rate within normal limits.
[2025-01-03] MEDS: HYDROCODONE/APAP 5/325 MG TABLET 1 TAB PO (13:20)
== END 2025-01-03 15:20 | disposition home or self-care (01) ==
PROVIDERS: PCP Internal Medicine Adolescent Medicine; Visit Provider Internal Medicine
PROC: 02703DZ Dilation of Coronary Artery, One Artery with Intraluminal Device, Percutaneous Approach (ICD-10-PCS; CPT 92928; principal; 2025-01-03 12:45)
DX: I25.810 Atherosclerosis of coronary artery bypass graft(s) without angina pectoris (principal); R94.31 Abnormal electrocardiogram [ECG] [EKG]; I10 Essential (primary) hypertension; E78.5 Hyperlipidemia, unspecified; I25.2 Old myocardial infarction; Z93.3 Colostomy status; Z87.891 Personal history of nicotine dependence; Z79.02 Long term (current) use of antithrombotics/antiplatelets; Z79.82 Long term (current) use of aspirin; Z79.899 Other long term (current) drug therapy; Z95.5 Presence of coronary angioplasty implant and graft; Z95.1 Presence of aortocoronary bypass graft; Z82.49 Family history of ischemic heart disease and other diseases of the circulatory system
CPT/HCPCS: 80048; 85025; 85347; 92928; 93454; 99152; C1725; C1769; C1874; C1887; C9600; J1200; J1644; J2003; J3010; J7040; Q9967

== ENCOUNTER 2025-01-05 12:29 | Observation (INO) | payer MEDICAID, SELFPAY ==
--- OUTSIDE RECORDS SUMMARY | 2024-11-01 10:15 | XMS_ITS ---
Author Organization [facility] Address [address] [facility] [address] [facility] [address] [place] [address] Care Team Providers Care Retail Pharmacist Name Role Phone Michaelle Rivas Primary Care Provider [phone] Champ Quiroz [phone] REASON FOR VISIT 1 month f/u Encounters Encounter Location Date Provider Diagnosis [address] [address] 11/01/2024 Champ Quiroz Plan Of Treatment Next Appt Details Provider Name:Champ Quiroz, 01/07/2025 04:30:00 PM, [address], [address], [place], [address], Progress Notes * Rere REESE ADOB: [birth year] (54 yo F)Acc No.[id number]:11/01/2024 Progress Notes Patient: Dayana MCMULLENRere HONG Provider: Dayana Quiroz MD :1970 A ge:53 Y S ex:Female Date:11/01/2024 Address:[address] [place] [address] [place] Pcp:Mihcaelle Rivas Subjective: * Chief Complaints: * 1 . 1 month f/u. * Medical History: Objective: * Vitals: Assessment: Plan: * Treatment: * * Electronic signature of Philippe Quiroz MD FAAP on 01/05/2025 at 12:38 PM EST Sign off status: Pending * Provider: Dayana Quiroz MD Date: 0 11/01/2024 Generated for Little catalan/Fior/Jericho on: 1 03/07/2024 12:38 PM EST
--- OUTSIDE RECORDS SUMMARY | 2024-11-08 06:45 | XMS_ITS ---
Author Organization [facility] Address [address] [facility] [address] [facility] [address] [place] [address] Care Team Providers Care Varnish Remover Name Role Phone Michaelle Rivas Primary Care Provider [phone] Champ Quiroz [phone] REASON FOR VISIT F/u, possible flu shot Encounters Encounter Location Date Provider Diagnosis [address] [address] 11/08/2024 Champ Quiroz Plan Of Treatment Next Appt Details Provider Name:Champ Quiroz, 01/07/2025 04:30:00 PM, [address] [facility] [address] [facility], [address], [place], [address], Progress Notes * Rere REESE ADOB: [birth year] (54 yo F)Acc No.[id number]:11/08/2024 Progress Notes Patient: Dayana CASIANO Rere Abreu Provider: Dayana Quiroz MD :1970 A ge:54 Y S ex:Female Date:11/08/2024 Address:[address] [place] [address] [place] Pcp:Michaelle Rivas Subjective: * Chief Complaints: * 1 . F/u, possible flu shot. * Medical History: Objective: * Vitals: Assessment: Plan: * Treatment: * * Electronic signature of Philippe Quiroz MD FAAP on 01/05/2025 at 12:38 PM EST Sign off status: Pending * Provider: Dayana Quiroz MD Date: 0 11/08/2024 Generated for Little catalan/Fior/Jericho on: 1 03/07/2024 12:38 PM EST
--- OUTSIDE RECORDS SUMMARY | 2024-11-12 10:45 | XMS_ITS ---
Author Organization [facility] Address [address] [place] [address] Care Team Providers Care Nurses Assistant Name Role Phone Michaelle Rivas Primary Care Provider Champ Quiroz Unavailable [phone] Allergies Allergen (clinical drug ingredient) Drug/Non Drug Allergy documented on EMR Reaction Allergy Type Onset Date Status LATEX GLOVES (uncoded) Unknown Allergy Active acetaminophen / oxycodone Percocet stomach upset, sweating Drug Allergy Active REASON FOR VISIT Coughing- steroid shot helped previously, but cough came back. Coughs so hard her nose bleeds Medications Medication SIG (Take, Route, Frequency, Duration) Notes Start Date End Date Status hydrOXYzine HCl 10 MG 1 tab orally every 8 hours; Duration: 30 days prn Active Metoprolol Tartrate 25 MG 1/2 tab Orally Twice a day; Duration: 14 days Active traZODone HCl 50 MG 1 tablet at bedtime as needed Orally Once a day; Duration: 30 days 07/30/2024 Active Combivent Respimat 20-100 MCG/ACT INHALE 1 PUFF BY MOUTH 4 TIMES DAILY; Duration: 30 days prn Active Citalopram Hydrobromide 40 MG 1 tab(s) orally once a day; Duration: 90 days Active Benzonatate 200 MG 1 capsule as needed Orally Three times a day; Duration: 10 days 10/11/2024 Active Rosuvastatin Calcium 40 MG 1 tablet Oral ly Once a day; Duration: 30 days Active Aspirin 81 81 MG 1 tablet Orally Once a day Active Primidone 50 MG 1 tab(s) orally twic e a day; Duration: 90 days Active Azelastine-Fluticasone 137-50 MCG/ACT 2 sprays Nasally Twice a day; Duration: 30 days 11/12/2024 Active buPROPion HCl ER (XL) 300 MG 1 tab(s) orally every 24 hours; Duration: 30 days Active Problems Problem Type SNOMED Code ICD Code Onset Dates Problem Status W/U Status Risk Notes Problem Chronic rhinitis (65226458) Chronic rhinitis (J31.0) Active confirmed Vital Signs Temperature 97.5 degrees Fahrenheit 11/13/19 25 Blood pressure systolic 150 mm Hg 11/13/19 25 Blood pressure diastolic 70 mm Hg 025 Heart Rate 80 /min 11/12/2024 Height 5 ft 1 in in 11/12/2024 Weight 124.6 lbs 11/12/2024 BMI 23.54 kg/m2 11/12/2024 Encounters Encounter Location Date Provider Diagnosis [facility] [place] [address] [place] [address] 11/12/2024 Champ Quiorz Subacute cough R05.2 and Chronic rhinitis J31.0 Assessments Encounter Date Diagnosis (ICD Code) Assessment Notes Treatment Notes Treatment Clinical Notes Section Notes 11/12/2024 Subacute cough (ICD-10 - R05.2) Dexamethasone for symptomatic relief of cough. Continue inhalers. Overall lungs sound pretty good 11/12/2024 Chronic rhinitis (ICD-10 - J31.0) Azelastine/Flona se combination therapy for rhinitis and symptomatic relief. Plan Of Treatment Medication Medication Name Sig Start Date Stop Date Notes Azelastine-Fluticasone 137-5 0 MCG/ACT 2 sprays Nasally Twice a day; Duration: 30 days 11/12/2024 Treatment Notes Assessment Notes Subacute cough Dexamethasone for symptomatic relief of cough. Continue inhalers. Overall lungs sound pretty good Chronic rhinitis Azelastine/Flonase c ombination therapy for rhinitis and symptomatic relief. Next Appt Details Follow Up: prn, Reason: Provider Name:Champ Quiroz, 01/07/2025 04:30:00 PM, [address], [address], [place], [address], Medications Administered Medication Instructions Date of Administration Dosage Notes Dexamethasone 4mg Injection 11/12/2024 4 mg Progress Notes * Rere REESE ADOB: [birth year] (54 yo F)Acc No.[id number]:11/12/2024 Progress Notes Patient: Rere DICKSON Provider: Dayana Quiroz MD :1970 A ge:54 Y S ex:Female Date:11/12/2024 Address:[address] [place] [address] [phone] Pcp:Michaelle Rivas Subjective: * Chief Complaints: * 1 . Coughing- steroid shot helped previously, but cough came back. Coughs so hard her nose bleeds. * HPI: g en: History as noted, does not think her cough is from her lungs, has a lot of irritant cough symptoms that she thinks happens when she lies down and has some nasal drainage. Clear nasal drainage noted. No fever. * Medical History: H ormone replacement therapy, Depression, Copd, Asthma, Smoker, Tremors, Coronary artery disease, status post CABG May 08 at [facility], Sepsis, bowel ischemia and colostomy April/2024 at [facility], Colitis. * Medications: T aking Aspirin 81 [...] hours , Notes to Pharmacist: prn, Taking Metoprolol Tartrate 25 MG Tablet 1/2 tab Orally Twice a day , Taking traZODone HCl 50 MG Tablet 1 tablet at bedtime as needed Orally Once a day , Taking buPROPion HCl ER (XL) 300 MG Tablet Extended Release 24 Hour 1 tab(s) orally every 24 hours , Taking Benzonatate 200 MG Capsule 1 capsule as needed Orally Three times a day , Taking Rosuvastatin Calcium 40 MG Tablet 1 tablet Orally Once a day , Medication List reviewed and reconciled with the patient * Allergies: L ATEX GLOVES, Percocet: stomach upset, sweating - Side Effects. Objective: * Vitals: N urse: KJ, Pain: 0, Temp: 97.5, RR: 18, HR: 80, BP: 150/70, Ht: 5 ft 1 in, Wt: 124.6, BMI:23.54. * Examination: G eneral Examination: L ots of postnasal drainage. Has issues with some swelling of the tonsillar tissue. However no stridor, no wheezing. Air movement is actually pretty good, lots of puffy nasal passages. Assessment: * Assessment: 1. S ubacute cough - R05.2 (Primary) 2 . C hronic rhinitis - J31.0 ? Plan: * Treatment: 2. C hronic rhinitis Start Azelastine-Fluticasone Suspension, 137-50 MCG/ACT, 2 sprays, Nasally, Twice a day, 30 days, 2, Refills 3. Notes: Azelastine/Flonase combination therapy for rhinitis and symptomatic relief. * Therapeutic Injections: Dexamethasone 4mg Injection : 4 mg (Route: Intramuscular) given by Champ Quiroz MD FAAP on left deltoid * Procedure Codes: J 1100 Dexamethasone Sodium Phosphate 4mg Injection, [address] THERAPEUTIC ADMINISTRATION * Follow Up: p rn * * Sign off status: Completed true * Provider: Dayana Quiroz MD Date: 0 11/12/2024 Generated for Aleshiai alayna/Fior/eTransmitting on: 03/07/2024 12:39 PM EST History and Physical Notes * HPI (History of Present Illness) Category Sub-Category Detail Notes Category Not es gen History as noted, does not think her cough is from her lungs, has a lot of irritant cough symptoms that she thinks happens when she lies down and has some nasal drainage. Clear nasal drainage noted. No fever. Examination Category Sub-Category Detail Notes Category Not es General Examination Lots of postnasal drainage. Has issues with some swelling of the tonsillar tissue. However no stridor, no wheezing. Air movement is actually pretty good, lots of puffy nasal passages
--- OUTSIDE RECORDS SUMMARY | 2024-11-21 05:28 | XMS_ITS ---
Author Organization [facility] Address [address] [place] [address] Care Team Providers Care Sequins Slinger Name Role Phone Michaelle Rivas Primary Care Provider [phone] Champ Quiroz Unavailable [phone] Results Component Value Reference Range Notes M-Complete Blood Count Auto Diff Reviewed date:11/22/2024 10:28:35 AM Interpretation: Performing Lab: Notes/Report: WBC 11.3 4.8-10.8 K/mm3 RBC 4.02 4.20-5.40 M/mm3 HGB 11.5 12.2-16.2 g/dL HCT 35.7 37.0-47.0 % MCV 88.8 81-99 fl MCH 28.6 27.0-31.2 pg MCHC 32.2 31.8-35.4 g/dL RDW 14.6 11.5-17.5 % PLT 428 142-424 K/mm3 MPV 9.1 7.4-10.4 fl NE% 54.4 37.0-80.0 % LY% 30.4 10-50 % MO% 10.5 1.7-9.3 % EO% 2.8 0.1-12.0 % BA% 1.5 0.1-2.0 % NE# 6.1 1.8-7.8 K/mm3 LY# 3.4 0.7-4.5 K/mm3 MO# 1.2 0.1-1.0 K/mm3 EO# 0.3 0.0-0.4 Kmm3 BA# 0.2 0-0.2 K/mm3 RDW-SD 47.2 NRBC% 0 IG% 0.4 NRBC# 0 IG# 0.04 M-Comprehensive Metabolic Pa ivelisse Reviewed date:11/22/2024 10:28:35 AM Interpretation: Performing Lab: Notes/Report: NA 138 136-145 mmol/L K 3.8 3.5-5.1 mmoL/L CL 99 98-107 mmol/L CO2 29 22.0-30.0 mmol/L GAP 13.8 5-15 mEq/L BUN 10 7-17 mg/dl CREATT 0.80 0.52-1.04 mg/dl GFRAA 90 >60 ML/MIN EGFR 74 >60 ml/min GLU 51 74-100 mg/dl CA 8.8 8.4-10.2 mg/dl BILIT 0.5 0.2-1.3 mg/dl AST 23 14-36 U/L ALT 16 12-78 U/L TP 6.1 6.3-8.2 g/dl ALB 3.7 3.5-5.0 g/dl GLOB 2.4 1.3-3.2 g/dL AGRATIO 1.5 1.1-1.8 ALP 106 38-126 U/L M-Diarrhea Panel, PCR Reviewed date:11/22/2024 10:28:35 AM Interpretation: Performing Lab: Notes/Report: CAMPYLOBACTER Not Detected NotDetected CLOSTR DIFFICIL Detected NotDetected NOTIFICATION RESULT Results called to: Saul Morrell MD on 11/21/24 at 1730 By Yenny Miller PLESIOMONAS Not Detected NotDetected SALMONELLA, PCR Not Detected NotDetected YERSINIA Not Detected NotDetected VIBRIO, PCR Not Detected NotDetected VIBRIO CHOLERAE Not Detected NotDetected ECOLI (EAEC) Not Detected NotDetected ECOLI (EPEC) Not Detected NotDetected ECOLI (ETEC) Not Detected NotDetected SHIGATOXIN Not Detected NotDetected ECOLI O157 Not Detected NotDetected SHIG-INVAS ECOL Not Detected NotDetected CRYPTO Not Detected NotDetected CYCLOSPORA Not Detected NotDetected EHISTOLYTICA Not Detected NotDetected GIARDIA Not Detected NotDetected ADENO STOOL Not Detected NotDetected ASTROVIRUS Not Detected NotDetected NOROVIRUS Not Detected NotDetected ROTOVIRUS A Not Detected NotDetected SAPOVIRUS Not Detected NotDetected REASON FOR VISIT possible CDiff Encounters Encounter Location Date Provider Diagnosis [facility] [address] [facility] [address] [place] [address] 11/21/2024 Michaelle McNees Acute abdominal pain R10.9 and Diarrhea, unspecified type R19.7 Assessments Encounter Date Diagnosis (ICD Code) Assessment Notes Treatment Notes Treatment Clinical Notes Section Notes 11/21/2024 Acute abdominal pain (ICD-10 - R10.9) 11/21/2024 Diarrhea, unspecified type (ICD-10 - R19.7) Plan Of Treatment Next Appt Details Provider Name:Champ Quiroz, 01/07/2025 04:30:00 PM, [address] [facility] [address], [address], [place], [address], Progress Notes * ELSARere ADOB: [birth year] (54 yo F)Acc No.[id number]:11/21/2024 Patient: Rere DICKSON :1970 A ge:54 Y S ex:Female Address:[address] [place] [address] [place] [address] Subjective: * Chief Complaints: * p ossible CDiff * Medical History: * Surgical History: * Hospitalization/Major Diagno stic Procedure: * Medications: Objective: * Vitals: * Physical Examination: Assessment: * Assessment: 1. A cute abdominal pain - R10.9 2 . D iarrhea, unspecified type - R19.7? Plan: * Treatment: 2. D iarrhea, unspecified type L AB: M-Complete Blood Count Auto Diff L AB: M-Comprehensive Metabolic Panel L AB: M-Diarrhea Panel, PCR * Procedure Codes: * true * Date: Generated for Printi ng/Faxing/eTransmitting on: 03/07/2024 12:37 PM EST
--- OUTSIDE RECORDS SUMMARY | 2024-11-22 03:47 | XMS_ITS ---
Author Organization [facility] Address [address] [facility] 36 [facility] [address] [place] [address] Care Team Providers Care Oncology Radiation Physician Name Role Phone Zeb Rivasi Primary Care Provider Champ Quiroz [phone] Encounters Encounter Location Date Provider Diagnosis [facility] [address] [facility] [address] [facility] [address] [place] [address] 11/22/2024 Michaelle Rivas Diarrhea, unspecifie d type R19.7 Assessments Encounter Date Diagnosis (ICD Code) Assessment Notes Treatment Notes Treatment Clinical Notes Section Notes 11/22/2024 Diarrhea, unspecified type (ICD-10 - R19.7) Plan Of Treatment Pending Test Test Name Order Date M-C. Diff Toxin Assay 11/22/2024 Next Appt Details Provider Name:Champ Quiroz, 01/07/2025 04:30:00 PM, [address] [facility] 36 [facility], [address], [place], [place], [address], Progress Notes * Rere REESE ADOB: [birth year] (54 yo F)Acc No.[id number]:11/22/2024 Patient: Rere DICKSON :1970 A ge:54 Y S ex:Female Address:[address] [place] [address] [place] [address] Subjective: * Chief Complaints: * * Medical History: * Surgical History: * Hospitalization/Major Diagno stic Procedure: * Medications: Objective: * Vitals: * Physical Examination: Assessment: * Assessment: 1. D iarrhea, unspecified type - R19.7 Plan: * Treatment: * Procedure Codes: * true * Date: Generated for [place] Wheeler/Jericho on: 03/07/2024 12:38 PM EST
--- OUTSIDE RECORDS SUMMARY | 2024-11-22 10:15 | XMS_ITS ---
Author Organization [facility] Address [address] [facility] [address] [place] [address] Care Team Providers Care County Assessor Name Role Phone Michaelle Rivas Primary Care Provider Champ Quiroz Unavailable [phone] Allergies Allergen (clinical drug ingredient) Drug/Non Drug [...] 11/22/2024 Encounters Encounter Location Date Provider Diagnosis [facility] [address] [facility] [address] [place], [place] [address] 11/22/2024 Michaelle Rivas Acute bilateral low back [...] [address], [address], [place], [address], Progress Notes * Miguel Ángel REESEie ADOB: [birth year] (54 yo F)Acc No.[id number]:11/22/2024 Progress Notes Patient: Rere DICKSON Lois Provider: Chelle Rivas APRN :1970 A ge:54 Y S ex:Female Date:11/22/2024 Address:[address] [place] [address] [id number] Subjective: * Chief Complaints: * 1 . [...] disease, status post CABG May 08 at [facility], Sepsis, bowel ischemia and colostomy April/2024 at [facility], Colitis. * Surgical History: l t rotator cuff 2020, rt hand surgery 01/2023, colon resection 04/30/24. * Hospitalization/Major Diagno stic Procedure: H MH 01/2022, - heart attach 04/30/2024-06/28/24, Septic 07/24/2024, [facility]- abd pain 07/2024, 09/2024. 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 * Medications: T aking Aspirin 81 81 [...] APRN Date: Generated for Little catalan/Fior/Lataitting on: 03/07/2024 12:39 PM EST History and [...]
--- OUTSIDE RECORDS SUMMARY | 2024-12-05 09:15 | XMS_ITS ---
Author Organization [facility] Address [address] [place] [address] Care Team Providers Care Crm Marketing Executive Name Role Phone Michaelle Rivas Primary Care Provider [phone] Champ Quiroz Unavailable [phone] Allergies Allergen (clinical drug ingredient) Drug/Non Drug Allergy documented on EMR Reaction Allergy Type Onset Date Status LATEX GLOVES (uncoded) Unknown Allergy Active acetaminophen / oxycodone Percocet stomach upset, sweating Drug Allergy Active REASON FOR VISIT [facility] D/C 11/26/2024, still having burning in her [...] jl Encounters Encounter Location Date Provider Diagnosis [facility] [place] [address] 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 She thinks [...] 12/05/2024 Treatment Notes Assessment Notes Atherosclerosis of [place] co ronary artery of [place] heart without angina pectoris Discussed patient's chest [...] outside and takes a walk and the drier operator helper air hits her lungs. She thinks [...] [address], [place], [address], Progress Notes * ELSA Rere ADOB: [birth year] (54 yo F)Acc No.[id number]:12/05/2024 HOSP F/U Patient: Rere DICKSON Provider: Dayana Quiroz MD :1970 A ge:54 Y S ex:Female Date:12/05/2024 Address:[address] [place] [address] S , [id number] Pcp:Michaelle Rivas Subjective: * Chief Complaints: * 1 . [facility] D/C 11/26/2024. 2. still having burning in [...] hospital discharge transitional care visit. Admitted at [facility] on dates noted above. Briefly, was admitted for chest pain, found to have reproducible chest pain, ruled out for [place], cardiology consult. [facility] deferred heart cath. She has an appointment with her regular banking paralegal at . She was not changed in [...] disease, status post CABG May 08 at [facility], Sepsis, bowel ischemia and colostomy April/2024 at [facility], Colitis. * Surgical History: l t rotator cuff 2020, rt hand surgery 01/2023, colon resection 04/30/24. * Hospitalization/Major Diagno stic Procedure: H MH 01/2022, - heart attach 04/30/2024-06/28/24, Septic 07/24/2024, [facility]- abd pain 07/2024, 09/2024, [facility] 11/2024. * Family History: F ather: , [...] active: no. Travel outside [place]: no. 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 Tobacco Control (Standard) T obacco use: F [...] Assessment: * Assessment: 1. A therosclerosis of [place] coronary artery of [place] heart without angina pectoris - I25.10 (Primary) [...] outside and takes a walk and the drier operator helper air hits her lungs. She thinks [...] 14 DAY DISCH, Modifiers: 25 , 1111F [facility] MED/CURENT MED MERGE, [address] DEMONSTRATE USE MDI/NEB * Follow Up: 2 Weeks * * Sign off status: Completed true * Provider: Dayana Quiroz MD Date: Generated for Little catalan/Fior/eTransmitting on: 03/07/2024 12:38 PM EST History and Physical Notes * HPI (History of Present Illness) Category Sub-Category Detail Notes Category Not es [place] History Transition of care visit from hospital Date of admission to hospital:: 11/24/2024 Patient is here for hospital discharge transitional care visit. Admitted at [facility] on dates noted above. Briefly, was admitted for chest pain, found to have reproducible chest pain, ruled out for [place], cardiology consult. [facility] deferred heart cath. She has an appointment with her regular banking paralegal at . She was not changed in [...]
--- OUTSIDE RECORDS SUMMARY | 2024-12-11 10:15 | XMS_ITS | Encounter Summary ---
Author Organization Healthcare Address [address] [place] [address] Care Team Providers Care Manager Of Change Name Role Phone Champ Quiroz MD Primary Care Provider [phone] Reason for Visit * Reason Comments Follow-up Encounter Details Date Type Department Care Team (Late st Contact Info) Description 12/11/2024 11:15 AM EDT Office Visit [facility] General Surgery [address] [place] [address] Lidia Troncoso MD [address] [place] [address] Enteritis (Primary Dx); S/P colon resection; History of infection of intestine due to Clostridium difficile; S/P colostomy (CMS/HCC) Social History Tobacco Use Types Packs/Day Years [...] living in a [facility] (including now)? No 09/21/2024 CAGE ASSESSMENT Answer [...] drink first t jaime in the morning (EYE-GRAINER MACHINE) to steady your nerves or to get [...] Sign Reading Time Taken Comments Blood Pressure 117/87 12/11/2024 11:05 AM EDT Pulse 73 12/11/2024 11:05 AM EDT Temperature 36.3 C (97.3 F) 12/11/2024 11:05 AM EDT Respiratory Rate 16 12/11/2024 11:05 AM EDT Oxygen Saturation 98% 12/11/2024 11:05 AM EDT Inhaled Oxygen Concentration - - Weight 59.5 kg (131 lb 3.2 oz) 12/11/2024 11:05 AM EDT Height 152 cm (4' 11.84 ) 12/11/2024 11:05 AM ED T Body Mass Index 25.76 12/11/2024 11:05 AM EDT documented in this encounter Miscellaneous Notes * Progress Notes - Marylu Roy MD - 12/11/2024 11:15 AM EDT [facility] Colon & Rectal Surgery 12/11/2024 Chief Complaint: Enteritis [K52.9] Verbal consent was obtained to use ambient listening technology to assist in the documentation of the encounter: yes HPI: Rere Reese is a 54 y.o. 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 History of Present Illness She reports an increase in the protrusion of her stoma, which is also swollen. This condition is constant and does not subside when she lies flat at night. The stoma appears to be functioning well, with significant output, particularly at night. She typically empties the bag twice daily, once in the morning and once in the afternoon. She was hospitalized in 09/2024, during which she did not receive antibiotics due to a history of C. difficile infections. Since her discharge, she has been managing well, maintaining adequate food and fluid intake. Her weight has increased from 114 pounds in 06/2024 to 131 pounds currently. She reports normal urination and no longer passes mucus from her rectum, a symptom she experienced initially. She has not undergone any endoscopic procedures. She experiences pain when transitioning between sitting and standing positions, which she suspects may be related to her surgery. She also reports a sensation of pulling, possibly due to scar tissue. She expresses concern about the stoma, fearing it may leak or emit an odor, which contributes to her anxiety. She is scheduled for another heart catheterization due to chest burning that has persisted for several weeks. She believes this may be related to her cardiac disease. She underwent an emergency triple bypass surgery on 07/11/2024 following a heart attack. Patient's pens and pencils dipper does not think she is a good candidate for operative intervention until they have cleared her from a cardiac perspective. She is currently on medication for cholesterol and anxiety, and takes aspirin for her heart condition. She does not take any other blood thinners. PAST SURGICAL HISTORY: She has had 3 C-sections, a hysterectomy, and gallbladder removal. Her incision was reopened due to severe scar tissue. She also underwent an emergency triple bypass surgery on 07/11/2024. SOCIAL HISTORY Alcohol: Does not consume alcohol. Tobacco: Quit smoking on 06/30/2024. Recreational Drugs: Does not use drugs. FAMILY HISTORY - Father: Heart problems - Negative for other conditions ROS: A complete 14 point review of systems was done with the patient. These are all negative with the exception of what is noted in the HPI. Past Medical History: has a past medical history of Anxiety, COPD (chronic obstructive pulmonary disease) (05/01/2024), Coronary artery disease, Depression, GERD (gastroesophageal reflux disease) (05/01/2024), History of transfusion, Hyperkalemia (05/06/2024), Hypertension, Leukocytosis (05/02/2024), On mechanically assisted ventilation (CMS/HCC) (05/06/2024), Tobacco use (05/01/2024), Tremor (05/01/2024), and Volume depletion, unspecified (09/18/2024). Past Surgical History: has a past surgical history that includes section, classic; Cholecystectomy; Shoulder surgery; Abdominal adhesion surgery; Hand surgery (Right); and Coronary artery bypass graft (05/06/2024). Family History: family history includes Heart disease in her father. No history of colorectal neoplasms. No history of IBD. History on file reviewed and it is otherwise noncontributory. Social History: Social History[1] Physical Exam: Vitals: 12/11/24 1105 BP: 117/87 Pulse: 73 Resp: 16 Temp: 36.3 ??C (97.3 ??F) SpO2: 98% Body mass index is 25.76 kg/m??. GEN: NAD HEENT: NCAT, EOMI RESP: Equal bilateral chest rise, normal work of breathing CV: RRR, appears well perfused ABD: Soft, nontender, nondistended, stoma productive, mild parastomal hernia, non obstructive EXT: No gross deformities MSK: Full ROM in BL UE NEURO: No focal deficits, AOx3 PSYCH: Normal mood and affect PERIANAL/PERINEUM: n/a DINA: n/a LABORATORIES AND IMAGING STUDIES: I personally reviewed all the laboratory examinations and imagingstudies below: Lab Results Component Value Date WBC 9.97 09/23/2024 RBC 3.98 09/23/2024 HGB 11.4 09/23/2024 HCT 34.5 09/23/2024 MCV 87 09/23/2024 MCHC 33.0 09/23/2024 RDW 15.3 (H) 09/23/2024 PLT 444 (H) 09/23/2024 MPV 9.2 09/23/2024 Lab Results Component Value Date BUN 5 (L) 09/23/2024 CL 103 09/23/2024 NA 137 09/23/2024 K 4.3 09/23/2024 TP 5.0 (L) 09/18/2024 AST 146 (H) 09/18/2024 ALT 86 (H) 09/18/2024 No results found for: CEA I visualized the recent imaging and discussed the current radiology findings with the patient in detail and answered all questions. === 09/17/24 === CT [facility] OUTSIDE IMAGES Assessment/Plan Rere Reese is a 54 y.o. female who presents in follow up to discuss colostomy reversal 2/2 ischemic colitis and left hemicolectomy with end transverse colostomy from 05/2024. However, at this time patient requires further work up for her cardiac disease and is scheduled to undergo heart cathin the coming weeks to months pending insurance prior auth. Will plan to see the patient back 2-3 weeks after her heart cath and can talk about reversal at that time. Problem List Items Addressed This Visit S/P colostomy ([facility]) S/P colon resection Enteritis - Primary History of infection of intestine due to Clostridium difficile Marylu Roy MD [1] Social History Tobacco Use Smoking status: Former Current packs/day: 0.00 Types: Cigarettes Quit date: 04/30/2024 Years since quittin.6 Smokeless tobacco: Never Vaping Use Vaping status: Never Used Substance Use Topics Alcohol use: Not Currently Drug use: Not Currently Cosigned by Lidia Troncoso MD at 12/21/2024 11:01 AM EST Associated attestation - Lidia Troncoso MD - 12/21/2024 11:01 AM EST I saw and evaluated the patient with the resident/fellow. I discussed the case with the resident/fellow and agree with the findings and plan as documented. documented in this encounter Plan of Treatment Scheduled Procedures Name Priority Associated Diagnoses Date/Ti me INCISION AND DRAINAGE, ABSCE SS, ISCHIORECTAL OR INTRAMURAL, WITH FISTULECTOMY OR FISTULOTOMY Anal fistula documented as of this encounter Goals Goal [...] as of this encounter Visit Diagnoses Diagnosis Enteritis- Primary Other and unspecified noninfectious gastroenteritis and colitis S/P colon resection Other postprocedural status History of infection of intestine due to Clostridium difficile S/P colostomy ([facility]) Colostomy status documented in this encounter Additional Health Concerns Infection Onset Date Last Indicated Resolved Time C. difficile 09/18/2024 09/18/2024 Assessment Noted Time PHQ-9 Depression Total Score: 1 06/30/19 25 2:40 PM EDT A fall risk assessment has been complete d for the patient 07/18/2024 11:10 AM EDT A Body Mass Index follow-up plan has been documented for the patient 12/21/2024 11:01 AM EST documented as of this encounter Care Teams Manager Of Change Relationship Specialty Start Date End Date Champ Quiroz MD [address] [place] [id number] PCP - General Internal Medicine 06/29/24 documented as of this encounter
--- OUTSIDE RECORDS SUMMARY | 2024-12-24 09:15 | XMS_ITS ---
Author Organization [facility] Address [address] [place] [address] Care Team Providers Care Cath Lab Name Role Phone Michaelle Rivas Primary Care Provider Champ Quiroz Unavailable [phone] Allergies Allergen (clinical drug ingredient) Drug/Non Drug Allergy documented on EMR Reaction Allergy Type Onset Date Status LATEX GLOVES (uncoded) Unknown Allergy Active acetaminophen / oxycodone Percocet stomach upset, sweating Drug Allergy Active REASON FOR VISIT Discharged from [facility] on 12/18/24. Still having some pain, but [...] Status Risk Notes Problem Old myocardial infarction (6076991) Status post non-ST elevation myocardial infarction (NSTEMI) (I25.2) Active confirmed Problem Chronic systolic heart failure (613857577) Systolic CHF, chronic (I50.22) Active confirmed Vital Signs Temperature 97.5 degrees Fahrenheit 12/25/19 25 Blood pressure systolic 128 mm Hg 12/25/19 25 Blood pressure diastolic 64 mm Hg 025 Heart Rate 80 /min 12/24/2024 Height 5 ft 1 in in 12/24/2024 Weight 129.6 lbs 12/24/2024 BMI 24.49 kg/m2 12/24/2024 Encounters Encounter Location Date Provider Diagnosis [facility] [address] [place], [place] [address] 12/24/2024 Champ Quiroz Atherosclerosis of [place] coronary artery of [place] heart without angina pectoris I25.10 ; C. 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 4 LAD stents placed with reperfusion. Tolerating statin therapy well. Continue statin therapy as directed 12/24/2024 C. difficile colitis (ICD-10 - A04.72) No treatment during admit due to no output. Continue with previous plan of probiotics and famotidine. 12/24/2024 Status post non-ST elevation myocardial infarction (NSTEMI) (ICD-10 - I25.2) Diagnosed with NSTEMI during admit with 4 LAD stents placed. Started on prasugrel. 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 4 LAD stents placed with reperfusion. Tolerating statin therapy well. Continue statin therapy as directed C. difficile colitis No treatment during admit due to no output. Continue with previous plan of probiotics and famotidine. Status post non-ST elevation myocardial infarction (NSTEMI) Diagnosed with NSTEMI during admit with 4 LAD stents placed. Started on prasugrel. [facility] Cardiology recommends outpatient RYANNE/ARB/SGLT2 for systolic dysfunction [...] Provider Name:Champ Quiroz, 01/07/2025 04:30:00 PM, [address] [facility] [address], [address], [place], [address], Progress Notes * Rere REESE ADOB: [birth year] (54 yo F)Acc No.[id number]:12/24/2024 HOSP F/U Patient: Rere DICKSON Provider: Dayana Quiroz MD :1970 A ge:54 Y S ex:Female Date:12/24/2024 Address:[address] [place] [address] , [id number] Pcp:Michaelle Rivas Subjective: * Chief Complaints: * 1 . Discharged from [facility] on 12/18/24. Still having some pain, but feels some better. Still having a lot of fatigue. * HPI: g en: Patient presents to clinic for transfer of care following admit to [facility] on 12/17/2024. Discharged 12/18/2024. She was in [place] with family when she started having severe left-sided chest pain with radiation to left arm. Initial troponin was elevated with diffuse ST depressions. Diganosed with NSTEMI and she was taken to the laborer road where 2 previous grafts gone down . [...] disease, status post CABG May 08 at [facility], Sepsis, bowel ischemia and colostomy April/2024 at [facility], Colitis. * Surgical History: l t rotator cuff 2020, rt hand surgery 01/2023, colon resection 04/30/24, Heart stints 11/16/2024. * Hospitalization/Major Diagno stic Procedure: H MH 01/2022, - heart attach 04/30/2024-06/28/24, Septic 07/24/2024, [facility]- abd pain 07/2024, 09/2024, [facility] 11/2024. * Family History: F ather: [...] active: no. Travel outside [place]: no. 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 Tobacco Control (Standard) T obacco [...] Assessment: * Assessment: 1. A therosclerosis of [place] coronary artery of [place] heart without angina pectoris - I25.10 (Primary) [...] 4 LAD stents placed. Started on prasugrel. [facility] Cardiology recommends outpatient RYANNE/ARB/SGLT2 for systolic dysfunction [...] Date: 02/24/2024 Generated for Aleshiai alayna/Fior/eTransmitting on: 03/07/2024 12:38 PM EST History and [...] for transfer of care following admit to [facility] on 12/17/2024. Discharged 12/18/2024. She was in [place] with family when she started having severe left-sided chest pain with radiation to left arm. Initial troponin was elevated with diffuse ST depressions. Diganosed with NSTEMI and she was taken to the laborer road where 2 previous grafts gone down . [...]
[2025-01-05] VITALS (9 sets, daily range): BP systolic 92–143; BP diastolic 60–78; PULSE 71–88; RESP 11–18; TEMP 37–37.1; O2SAT 95–99; BMI 24.1
--- NOTE | 2025-01-05 12:32 | ECG_ITS ---
APPROVED REPORT Exam: Resting ECG HR:81 bpm ECG Measurements Heart Rate 81 AXES QRSd 87 QRS 58 QT 352 T 73 QTc 390 [address] R[address] DEVIATION AND MODERATE T-WAVE ABNORMALITY, CONSIDER ANTEROLATERAL ISCHEMIA [-0.1+ mV T-WAVE IN V3-V6] ABNORMAL ECG UNCONFIRMED REPORT Normal sinus rhythm. No ST elevation or depression. QTc normal at 390 Electronically signed by : BUZZ BASSETT, 01/05/2025 15:32:43
--- NOTE | 2025-01-05 12:34 | XR_ITS ---
PROCEDURE INFORMATION: Exam: XR Chest Exam date and time: 01/05/2025 12:44 PM Age: 54 years old Clinical indication: Pain; Chest pressure; Prior surgery; Surgery date: 6+ months; Surgery type: Stents; Additional info: Cp SOA TECHNIQUE: Imaging protocol: Radiologic exam of the chest. Views: 1 view. Total images: 1 COMPARISON: CT ANGIO CHEST 11/23/2024 10:25 PM FINDINGS: Lungs: Bilateral hyperinflation is present. No focal pneumonia. Pleural spaces: No pleural effusion. No pneumothorax. Heart/Mediastinum: Postoperative changes of the heart. Bones/joints: There is evidence of prior median sternotomy. IMPRESSION: 1. Bilateral hyperinflation is present. 2. No focal pneumonia.
--- OUTSIDE RECORDS SUMMARY | 2025-01-05 12:37 | XMS_ITS | Clinical Summary ---
Author Organization [facility] Address [address] [place] [address] Care Team Providers Care Logging Tractor Operator Swamp Name Role Phone Provider, No Known Primary Care Provider [phone] Allergies No known active allergies Medications propranolol [...] 11/03/2019 INFLUENZA VACCINE 09/14/2024 Insurance Care Teams Logging Tractor Operator Swamp Relationship Specialty Start Date End Date Provider, No Known [place] [id number] PCP - General 01/12/16
--- OUTSIDE RECORDS SUMMARY | 2025-01-05 12:38 | XMS_ITS | Encounter Summary ---
Author Organization Healthcare Address [address] [place] [address] Care Team Providers Care Sealer Dry Cell Name Role Phone Pcp, No Primary Care Provider Champ Butler MD Primary Care Provider [phone] Encounter Details Date Type Department Care Team (Late st Contact Info) Description 05/21/2024 Lab Requisition [facility] [address] [place] [address] Tom Dyson MD [address] [facility] [address] [place] [phone] Encounter for general adult medical examination without [...] Result [facility] [address] [place] [address] documented in this encounter Visit Diagnoses Diagnosis [...] documented as of this encounter Care Teams Sealer Dry Cell Relationship Specialty Start Date End Date Pcp, No [address] [place] [address] PCP - General Family Medicine 04/04/24 06/28/24 Champ Quiroz MD [address] [place] [address] PCP - General Internal Medicine 06/29/24 documented as of this encounter
--- OUTSIDE RECORDS SUMMARY | 2025-01-05 12:38 | XMS_ITS | Encounter Summary ---
Author Organization Healthcare Address [address] [place] [address] Care Team Providers Care Human Resources Department Supervisor Name Role Phone Pcp, No Primary Care Provider Champ Butler MD Primary Care Provider [phone] Encounter Details Date Type Department Care Team (Late st Contact Info) Description 05/14/2024 Lab Requisition [facility] [address] [place] [address] Tom Dyson MD [address] [facility] [address] [place] [phone] Encounter for general adult medical examination without [...] at day 1 05/15/2024 11:17 AM EDT [facility] Swab (Nares and Jacey Rectal) 05/14/2024 8:24 AM EDT 05/14/2024 2:12 PM EDT us Tom Dyson MD LAB MICROBIOLOGY - GEN ERAL ORDERABLES Final Result [facility] [address] [place] [phone] documented in this encounter Visit Diagnoses Diagnosis [...] of this encounter Care Teams Human Resources Department Supervisor Relationship Specialty Start Date End Date Pcp, [place] [address] PCP - General Family Medicine 04/04/24 06/28/24 Champ Quiroz MD [address] [place] [address] PCP - General Internal Medicine 06/29/24 documented as of this encounter
--- OUTSIDE RECORDS SUMMARY | 2025-01-05 12:39 | XMS_ITS | Clinical Summary ---
Author Organization [facility] Address [address] [place] [address] Care Team Providers Care Laborer Powerhouse Name Role Phone Champ Quiroz MD Primary Care Provider + [phone] Allergies Active Allergy Reactions Criticality Noted Date [...] 12/26/2024 Telephone [facility] [address] [place] [id number] Saul Rose MD 12/26/2024 Telephone [facility] [address] [place] [address] Rina Mason RN 12/11/2024 11:15 AM EDT Office Visit [facility] [address] [place] [address] Lidia Troncoso MD Enteritis (Primary Dx); S/P colon resection; History of infection of intestine due to Clostridium difficile; S/P colostomy (CMS/HCC) 12/11/2024 Travel from Last 3 Months Family History [...] drink first t jaime in the morning (EYE-PROFESSOR OF LAW) to steady your nerves or to get [...] 11/03/2019 [facility]-Zoster Vaccines (1 of 2) 11/03/2019 [id number] Vaccine (1 - season) 2024 [facility]-Influenza Vaccine [...] Jd Sabillon [employer] Implanted Type Area Anthropology Professor Device Identifier Shelf Expiration Date Model / Serial / Lot Pledget Ptfe [place] 4.8mm X 6mm - [id number] Implanted:05/06 by Miate Austin MD at [facility] (Quantity not on file) [id number] / / Additional Health Concerns Infection Onset Date Last Indicated C. difficile 09/18/2024 09/18/2024 Insurance [facility] MEDICAID Advance Directives * Full Code [...] 12:06 PM 05/06/2024 8:27 PM Care Teams Laborer Powerhouse Relationship Specialty Start Date End Date Champ Quiroz MD [address] [place] [id number] PCP - General Internal Medicine 06/29/24
--- OUTSIDE RECORDS SUMMARY | 2025-01-05 12:39 | XMS_ITS | Encounter Summary ---
Author Organization Healthcare Address [address] [place] [address] Care Team Providers Care Cisco Network Architect Name Role Phone Champ Quiroz MD Primary Care Provider [phone] Encounter Details Date Type Department Care Team (Late st Contact Info) Description 07/21/2024 Orders Only External Location [address] [place] [address] Sundeep Fisher MD [address] [place] [phone] Social History Tobacco Use Types Packs/Day [...] the past 12 months has th e [employer], [employer], oil, or water [employer] threatened to shut off services in your [...] documented as of this encounter Care Teams Cisco Network Architect Relationship Specialty Start Date End Date Champ Quiroz MD [address] [place] [address] [place] [address] PCP - General Internal Medicine 06/29/24 documented as of this encounter
--- OUTSIDE RECORDS SUMMARY | 2025-01-05 12:39 | XMS_ITS | Patient Health Record ---
Author Organization [facility] Address [address] [place] [address] Care Team Providers Care Inventory Control Supervisor Name Role Phone Michaelle Rivas Primary Care Provider Champ Quiroz Unavailable [phone] Migration, Provider Unavailable Unavailable Allergies Allergen (clinical [...] Not Detected NotDetected SAPOVIRUS Not Detected NotDetected COMPREHENSIVE METABOLIC PANE L (93029) Reviewed date:09/03/2024 09:41:31 AM Interpretation: Performing Lab:[facility] [id number], [id number] Wil Bro Notes/Report: NON-FASTING; NON-FASTING GLUCOSE 104 [...] 9) Reviewed date:09/03/2024 09:41:31 AM Interpretation: Performing Lab:[facility] [id number], [id number] Wil Bro Notes/Report: NON-FASTING; NON-FASTING WHITE BLOOD [...] MPV 10.0 7.5-12.5 fL ABSOLUTE NEUTROPHILS 4948 6764-2611 cells/uL ABSOLUTE LYMPHOCYTES 2503 850-3900 cells/uL ABSOLUTE MONOCYTES 655 200-950 cells/uL ABSOLUTE EOSINOPHILS 202 15-500 cells/uL ABSOLUTE BASOPHILS 92 0-200 cells/uL NEUTROPHILS 58.9 LYMPHOCYTES 29.8 MONOCYTES 7.8 EOSINOPHILS 2.4 BASOPHILS 1.1 X ray : Chest Reviewed date:10/19/2024 08:17:12 AM Interpretation: Performing Lab: Notes/Report: Urinalysis Reviewed date:11/22/2024 04:57:22 PM Interpretation: Performing Lab: Notes/Report: Color/Clarity yellow Leuk trace Nitrite neg Urobili 0.2 Protein neg pH 6.0 Blood neg Sp. Gr. 1.015 Ketone neg Bili neg Glucose neg Medications Medication SIG (Take, Route, Frequency, Duration) Notes Start Date End Date Status Primidone 50 MG 1 tab(s) orally twic e a day; Duration: 90 days Active Aspirin 81 81 MG 1 tablet Orally Once a day Active Breztri Aerosphere 160-9-4.8 MCG/ACT 2 puffs Inhalation Twice a day 12/05/2024 Active Calmoseptine 0.44-20.6 % as directed Ext ernally; Duration: 30 days 01/01/2025 Active Combivent Respimat 20-100 MCG/ACT INHALE 1 [...] Status Risk Notes Problem Generalized anxiety disorder (22779534) Generalized anxiety disorder (F41.1) Active confirmed Problem Primary insomnia (6334586) Primary insomnia (F51.01) Active confirmed Problem Psychophysiologic insomnia (631072073) Psychophysiologic insomnia (F51.04) Active confirmed Problem Essential tremor (130408679) Essential tremor (G25.0) Active confirmed Problem Chronic rhinitis (66514021) Chronic rhinitis (J31.0) Active confirmed Problem Panlobular emphysema (3732290) Panlobular emphysema (J43.1) Active confirmed Problem Left side sciatica (045165492342680) Sciatica, left side (M54.32) Active confirmed Problem Sciatica (43162017) Lumbago with sciatica, right side (M54.41) Active confirmed Problem Sciatica (64476171) Lumbago with sciatica, left side (M54.42) Active confirmed Problem Colostomy present (920308883) Colostomy status (Z93.3) Active confirmed Problem Mixed anxiety and depressive disorder (266669451) Depression with anxiety (F41.8) Active confirmed Problem Anxiety (64488439) Anxiety (F41.9) Active confi rmed Problem Vitamin B12 deficiency (non anemic) (78554238) B12 deficiency (E53.8) Active confirmed Problem Acute exacerbation of chronic obstructive airways disease (012838449) COPD exacerbation (J44.1) Active confirmed Problem Atherosclerosis of coronary artery without angina pectoris (477652619334435) Atherosclerosis of cahuilla coronary artery of cahuilla heart without angina pectoris (I25.10) Active confirmed Problem Chronic systolic heart failure (282563615) Systolic CHF, chronic (I50.22) Active confirmed Problem Disorder of skin AND/OR subcutaneous tissue (58595015) Skin lesions (L98.9) Active confirmed Problem Old myocardial infarction (0547309) Status post non-ST elevation myocardial infarction (NSTEMI) (I25.2) Active confirmed Vital Signs Heart Rate 80 /min 12/24/2024 Temperature 97.5 degrees Fahrenheit 12/24/2024 Blood pressure diastolic 64 mm Hg 12/24/2024 Height 5 ft 1 in in 12/24/2024 Blood pressure systolic 128 mm Hg 12/24/2024 Weight 129.6 lbs 12/24/2024 BMI 24.49 kg/m2 12/24/2024 Encounters Encounter Location Date Provider Diagnosis [facility] [address] [place] [address] 05/19/2024 Provider Migration Depression with anxiety F41.8 and COPD exacerbation J44.1 [facility] [place] [address] [address] [facility] [address] [place] [address] 04/20/2024 Michaelle McNees Depression with anxi ety F41.8 and COPD exacerbation J44.1 [facility] [address] [place] [address] 07/02/2024 Champ Besson Tremor R25.1 ; Atherosclerosis of cahuilla coronary artery of cahuilla heart without angina pectoris I25.10 ; Anxiety F41.9 ; Hospital discharge follow-up Z09 ; Dysuria R30.0 and Colostomy present Z93.3 [facility] [address] [facility] [address] [place], [place] [address] 07/18/2024 Champ Quiroz Pelvic pain in femal e R10.2 and Panlobular emphysema J43.1 [facility] [address] [facility] [address] [place], [place] [address] 07/30/2024 Champ Quiroz C. difficile colitis A04.72 ; Primary insomnia F51.01 ; Colostomy status Z93.3 and Hospital discharge follow-up Z09 [facility] [address] [facility] [address] [place] [address] 08/20/2024 Champ Quiroz Atherosclerosis of cahuilla coronary artery of cahuilla heart without angina pectoris I25.10 ; Colostomy status Z93.3 and Hospital discharge follow-up Z09 [facility] [address] [facility] [address] [place] [address] 08/30/2024 Michaelle McNees Vertigo R42 ; C. difficile colitis A04.72 and Atherosclerosis of cahuilla coronary artery of cahuilla heart without angina pectoris I25.10 [facility] [address] [facility] [address] [place] [address] 10/01/2024 Champ Quiroz Generalized anxiety disorder F41.1 ; Atherosclerosis of cahuilla coronary artery of cahuilla heart without angina pectoris I25.10 ; Colostomy status Z93.3 and Hospital discharge follow-up Z09 [facility] [address] [facility] [address] [place] [address] 10/11/2024 Michaelle McNees Acute cough R05.1 [facility] [address] [facility] [address] [place] [address] 11/12/2024 Champ Quiroz Subacute cough R05.2 and Chronic rhinitis J31.0 [facility] [address] [facility] [address] [place] [address] 11/22/2024 Michaelle McNees Acute bilateral low back pain without sciatica M54.50 ; Lower abdominal pain R10.30 and History of Clostridium difficile infection Z86.19 [facility] [address] [place] [address] 12/05/2024 Champ Quiroz Atherosclerosis of cahuilla coronary artery of cahuilla heart without angina pectoris I25.10 ; 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 difficile colitis A04.72 ; Status post non-ST elevation myocardial infarction (NSTEMI) I25.2 ; Systolic CHF, chronic I50.22 and Hospital discharge follow-up Z09 [facility] [address] [place] [address] 02/06/2024 Michaelle McNees [facility] [address] [place] [address] 04/20/2024 Michaelle McNees [facility] [address] [place] [address] 07/20/2024 Michaelle McNees Hypokalemia E87.6 [facility] [address] [place] [address] 07/20/2024 Michaelle McNees [facility] [address] [place] [address] 07/24/2024 Michaelle McNees [facility] [address] [place] [address] 08/09/2024 Michaelle McNees [facility] [address] [place] [address] [place] [address] 09/03/2024 Michaelle McNees [facility] [address] [place] [address] 09/25/2024 Michaelle McNees Primary insomnia F51 .01 and Enterocolitis K52.9 [facility] [address] [place] [address] 09/25/2024 Champ Besson Primary insomnia F51 .01 and Enterocolitis K52.9 [facility] [address] [place] [address] 10/05/2024 Michaelle McNees [facility] [address] [place] [address] 10/11/2024 Michaelle McNees [facility] [address] [place] [address] 11/21/2024 Michaelle McNees Acute abdominal pain R10.9 and Diarrhea, unspecified type R19.7 [facility] [address] [place] [address] 11/22/2024 Michaelle McNees Diarrhea, unspecifie d type R19.7 [facility] [address] [place] [address] 11/23/2024 Michaelle McNees [facility] [address] [place] [address] 11/26/2024 Champ Besson [facility] [address] [place] [address] 12/18/2024 Michaelle McNees [facility] [address] [place] [address] 12/26/2024 Champ Besson [facility] [address] [place] [address] 12/31/2024 Michaelle McNees [facility] [address] [place] [address] 01/01/2025 Michaelle McNees Assessments Encounter Date Diagnosis (ICD [...] be helpful for her 07/02/2024 Atherosclerosis of cahuilla coronary artery of cahuilla heart without angina pectoris (ICD-10 - I25.10) Status post bypass. On appropriate medication 07/18/2024 Panlobular emphysema (ICD-10 - J43.1) Stable. Off cigarettes, continue inhalers. 07/18/2024 Pelvic pain in female (ICD-10 - R10.2) COSMETICS SUPERVISOR evaluation. Possible ongoing problems from catheter but [...] with [facility] 08/20/2024 Atherosclerosis of cahuilla coronary artery of cahuilla heart without angina pectoris (ICD-10 - I25.10) [...] colitis (ICD-10 - A04.72) Extensive review of [facility] and [facility] records Abdomen soft, nontender Continue Vanc Keep Fu with Dr. Troncoso [facility] 09/25/2024 Primary insomnia (ICD-10 - [...] with the anxiety. We refered her to [facility] and the Medicare office to see if she can get in contact with a therapist and a social science instructor. 10/01/2024 Atherosclerosis of cahuilla coronary artery of cahuilla heart without angina pectoris (ICD-10 - I25.10) [...] with methocarbamol. 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 4 LAD stents placed with reperfusion. Tolerating statin therapy well. Continue statin therapy as directed 12/24/2024 C. difficile colitis (ICD-10 - A04.72) No treatment during admit due to no output. Continue with previous plan of probiotics and famotidine. 12/24/2024 Status post non-ST elevation myocardial infarction (NSTEMI) (ICD-10 - I25.2) Diagnosed with NSTEMI during admit with 4 LAD stents placed. Started on prasugrel. [facility] Cardiology recommends outpatient RYANNE/ARB/SGLT2 for systolic dysfunction as outpatient. Continue prasugrel, aspirin, metoprolol, and crestor 07/02/2024 Anxiety (ICD-10 - F41.9) 12/05/2024 Panlobular emphysema (ICD-10 - J43.1) Patient's only been using albuterol as needed on a very random basis. 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 She [...] Enterocolitis (ICD-10 - K52.9) 08/30/2024 Atherosclerosis of cahuilla coronary artery of cahuilla heart without angina pectoris (ICD-10 - I25.10) Decrease metoprolol for low normal blood pressure and fatigue Keep FU with [facility] cardiology next week 08/20/2024 Hospital discharge follow-up (ICD-10 - Z09) [...] Spine 06/17/2006 MRI : Lumbosacral Spine 05/06/2006 X ray : Spines, Lumbosacral 11/22/2024 CT Scan : Abdomen, with contrast CT Scan : Abdomen, with contrast 007 N-cbc 10/13/2006 MRI : Coccyx 06/17/2006 Mammogram : Bilateral 12/08/2021 M-Diarrhea Panel, PCR 01/25/2022 M-Diarrhea Panel, PCR 12/31/2022 M-C. Diff Toxin Assay 11/22/2024 Physical Therapy Eval and Treat 10/29/19 23 Future Test Test Name Order Date BASIC METABOLIC PANEL (91306) 07/23/2024 MAGNESIUM (622) 07/23/2024 Next Appt Details Provider Name:Champ Suggs Richie, 01/07/2025 04:30:00 PM, [address], [place], [address], Insurance Providers Payer Name Payer Address Payer Phone Subscriber Number Group Number Insured Name Patient Relationship to Insured Coverage Start Date Coverage End Date [employer] [address] [address] [place] [address] [id number] [facility] Rere Reese Self - patient is the [...] status post CAB G May 08 at [facility] Sepsis, bowel ischemia and colostomy Mar at [facility] colitis Surgical History Surgery Date(Month/Year) lt rotator cuff 2020 rt hand surgery 01/2023 colon resection 04/30/24 Heart stints 11/16/2024 Hospitalization History Reason Date(Month/Year) [facility] 11/2024 09/2024 [facility]- abd pain 07/2024 Septic 07/24/2024 - heart attach 04/30/2024-06/28/24 [facility] 01/2022
--- OUTSIDE RECORDS SUMMARY | 2025-01-05 12:40 | XMS_ITS | Encounter Summary ---
Author Organization Healthcare Address [address] [place] [address] Care Team Providers Care Geophysical Laboratory Director Name Role Phone Champ Quiroz MD Primary Care Provider [phone] Encounter Details Date Type Department Care Team [...] living in a fdc (including now)? No 09/21/2024 CAGE ASSESSMENT Answer [...] drink first t jaime in the morning (EYE-HIDE INSPECTOR AND SORTER) to steady your nerves or to get [...] documented as of this encounter Care Teams Geophysical Laboratory Director Relationship Specialty Start Date End Date Champ Quiroz MD [address] [place] [address] [place] [address] PCP - General Internal Medicine 06/29/24 documented as of this encounter
--- OUTSIDE RECORDS SUMMARY | 2025-01-05 12:40 | XMS_ITS | Encounter Summary ---
Author Organization Healthcare Address [address] [place] [address] Care Team Providers Care Special Forces Specialist Name Role Phone Champ Quiroz MD Primary Care Provider [phone] Encounter Details Date Type Department Care Team (Late st Contact Info) Description 12/26/2024 Telephone [facility] Anesthesia [address] [place] [address] Saul Rose MD [address] [facility] [address] [place] [address] Social History Tobacco Use Types [...] any time in the past 12 m [facility], were you homeless or living [...] drink first t jaime in the morning (EYE-REIMBURSEMENT LIAISON) to steady your nerves or to get [...] documented as of this encounter Care Teams Special Forces Specialist Relationship Specialty Start Date End Date Champ Quiroz MD [address] [place] [address] [place] [address] PCP - General Internal Medicine 06/29/24 documented as of this encounter
--- OUTSIDE RECORDS SUMMARY | 2025-01-05 12:40 | XMS_ITS | Encounter Summary ---
Author Organization Healthcare Address [address] [place] [address] Care Team Providers Care Conveyor Tender Name Role Phone Chmap Quiroz MD Primary Care Provider [phone] Encounter Details Date Type Department Care Team (Late st Contact Info) Description 12/26/2024 Telephone [facility] General Surgery [address] [place] [address] Rina Mason, RN [facility] None Social History Tobacco Use Types Packs/Day Years [...] drink first t jaime in the morning (EYE-STEAM PRESSURE CHAMBER OPERATOR) to steady your nerves or to get rid of a hangover? 0 09/17/2024 CAGE Questionnaire Score 0 025 Utilities Answer Date Recorded In the past 12 months has th e [employer], [employer], oil, or water [employer] threatened to shut off services in [...] documented as of this encounter Care Teams Conveyor Tender Relationship Specialty Start Date End Date Champ Quiroz MD [address] [place] [address] [place] [address] PCP - General Internal Medicine 06/29/24 documented as of this encounter
--- NOTE | 2025-01-05 12:45 | ED_ITS ---
<Statement entered by Parvez Arauz MD - 01/05/25 19:53> I was consulted by the [place]IR[place]IE, and we discussed the complexity of the problems being addressed. I approve the treatment and management plan for this patient's care in the emergency department, thus performing a substantive portion of the medical decision making. Parvez Arauz MD Discharge Plan Disposition Patient Disposition: Admitted Clinical Impressions Clinical Impression: Elevated troponin level, Chest pain, Hypokalemia, Anxiety Discharge ED Provider: Parvez Arauz [facility] General Chief Complaint: Chest Pain Stated Complaint: chest pain Time Seen by Provider: 01/05/25 12:33 Mode of Arrival: Wheelchair Source of Information: Patient Description of Symptoms (Recalled from ER Triage Doc. by RN): patient states she began having substernal chest pain that is aching around 1130 today. she just had stents placed last week. denies any shortness of breath. did take her eliquis today. 08/23 intermittent pain History of Present Illness HPI narrative: patient is a 54-year-old female PMHx STEMI, multiple caths, most recent 48 hours ago with stent placement, CAD, anxiety, history of tobacco use, hyperlipidemia who presents to the ED for complaints of central and left sided chest pain that started almost 2 hours ago. Patient states she was sitting when the pain started. Reports she feels very anxious because she has had cardiac events this year with recent caths. She has taken aspirin today, states she is currently on anticoagulants and has taken those today as well. Related Data Home Medications ?Medication ?Instructions ?Recorded ?Confirmed citalopram 40 mg tablet 40 mg PO DAILY 12/23/2312/16 primidone 50 mg tablet 50 mg PO BID 12/23/23 bupropion HCl 300 mg 24 hr tablet, 300 mg PO DAILY 01/05/25 extended release aspirin 81 mg chewable tablet 81 mg PO DAILY 07/21/24 01/05/25 rosuvastatin 40 mg tablet 40 mg PO HS 07/21/24 5 trazodone 100 mg tablet 100 mg PO HSP PRN Insomnia 1 02/18/24 01/05/25 losartan 25 mg tablet 25 mg PO DAILY 12/27/2412/16 menthol 0.44 %-zinc oxide 20.6 % 1 applic topical D IRECTED Skin 01/05/25 01/05/25 topical ointment (Calmoseptine) Condition Previous Rx's ?Medication ?Instructions ?Recorded metoprolol tartrate 25 mg tablet 12.5 mg (1/2 x 25 mg) PO BID #30 09/04/24 tabs prasugrel HCl 10 mg tablet 10 mg PO DAILY #30 tabs Allergies Allergy/AdvReac Type Severity Reaction Status Date / Time No Known Allergies Allergy Verified 12/27/24 14:39 [facility] Disclaimer: The information contained in this section may have been updated after the patient was seen, as this information can be updated by other users. Medical History Peripheral arterial disease Hyperlipidemia Angina pectoris Bleeding nose Dyspnea Cough Colostomy in place Heart attack Depression Anxiety History of pleurisy Hemorrhoid Essential tremor Endometriosis Surgical History History of coronary artery bypass graft History of colostomy History of hand surgery History of X3 Hx of cholecystectomy H/O rotator cuff surgery LEFT History of hysterectomy Family History Other Essential tremor Family history of heart disease Social History (Updated 01/03/25 @ 07:58 by Beckie Urbano RN) Smoking Status: Never smoker alcohol intake: never substance use type: denies use current occupational status: unemployed and retired Travel in the last 8 weeks?: Inside the [place] household members: family housing: house caffeine: Yes Have you lived/traveled outside US in past 30 days?: No Contact w/someone who lives/traveled outside US past 30 days?: No Exposure to someone with infectious disease in past 14 days?: No Do you have a fever (greater than 100.4 F or 38 C)?: No Have you tested positive for COVID-19?: No Exposed to someone with COVID-19 in past 14 days?: No Do you have a sore throat?: No Do you have a cough?: No Do you have any weakness?: No Do you have any diarrhea?: No Are you experiencing any unusual bleeding?: No Do you have any muscle aches/pain?: No Do you have any abdominal pain?: No Are you experiencing loss of taste or smell?: No Other Medical History Have you received the Flu Vaccine for this season: No Have you received the Pneumonia Vaccine: No ROS Obtained: Yes Systems reviewed as appropriate & no additional complaints except as documented Physical Exam General General appearance: alert Eye Eye exam: Present PERRL Neck Neck exam: Present full ROM Respiratory Respiratory exam: Present normal lung sounds bilaterally Cardiovascular Cardiovascular exam: Present regular rate Abdominal Exam Abdominal exam: Present soft Neurological Exam Neurological exam: Present alert and oriented X3 Psychiatric Psychiatric exam: Present normal affect Skin Skin exam: Present warm and dry HEART Score HEART Score HEART Score assessment performed?: Yes History (anamnesis): Highly suspicious ECG: Non-specific disturbance Age: 45-65 years Risk factors: Atherosclerosis history Troponin: > 3x normal limit HEART Score: 8 Critical Care Critical Care Time Critical Care Time: No Medical Decision Making Supa Inquiry Pt receiving controlled substance: No Vital Signs Vital Signs: 01/05/25 12:36 01/05/25 13:00 01/05/25 13:30 Temperature 98.6 F Temperature Source Oral Pulse Rate 74 71 Pulse Rate [Right Radial] 85 Respiratory Rate 18 14 11 L Blood Pressure 92/60 L 92/64 L Blood Pressure [Right Arm] 128/76 Blood Pressure Mean [Right Arm] 93 Blood Pressure Source [Right Arm] Automatic Cuff Blood Pressure Position [Right Arm] Supine 02 Sat by Pulse Oximetry 99 99 99 Oxygen Delivery Method Room Air Room Air Room Air 01/05/25 13:35 01/05/25 14:00 01/05/25 14:30 Temperature Temperature Source Pulse Rate 84 82 77 Pulse Rate [Right Radial] Respiratory Rate 16 14 13 Blood Pressure 112/63 143/78 H 120/71 Blood Pressure [Right Arm] Blood Pressure Mean [Right Arm] Blood Pressure Source [Right Arm] Blood Pressure Position [Right Arm] 02 Sat by Pulse Oximetry 98 99 98 Oxygen Delivery Method Room Air Room Air Room Air 01/05/25 14:51 01/05/25 15:00 01/05/25 15:00 Temperature Temperature Source Pulse Rate 75 Pulse Rate [Right Radial] Respiratory Rate 13 Blood Pressure 106/67 L Blood Pressure [Right Arm] Blood Pressure Mean [Right Arm] Blood Pressure Source [Right Arm] Blood Pressure Position [Right Arm] 02 Sat by Pulse Oximetry 95 Oxygen Delivery Method Room Air Room Air Room Air Lab Data Labs: Lab Results 01/05/25 12:50: WBC 9.7, RBC 3.50 L, Hgb 10.0 L, Hct 30.3 L, MCV 86.6, MCH 28.6, MCHC 33.0, RDW 13.4, Plt Count 464 H, MPV 9.6, Neut % (Auto) 59.1, Lymph % (Auto) 28.8, [place] % (Auto) 8.4, Eos % (Auto) 2.3, Baso % (Auto) 1.0, Neut # (Auto) 5.7, Lymph # (Auto) 2.8, [place] # (Auto) 0.8, Eos # (Auto) 0.2, Baso # (Auto) 0.1, PT 11.1, INR 1.00, APTT 26.5, Sodium 134 L, Potassium 3.0 L, Chloride 102, Carbon Dioxide 23, Anion Gap 12.0, BUN 5 L D, Creatinine 0.80, Estimated Creat Clear 73, Estimated GFR 74, Est GFR ( Amer) 90, Glucose 153 H, Calcium 8.5, Total Bilirubin 0.3, AST 41 H, ALT 22, Alkaline Phosphatase 93, Troponin I 1.99 H, NT-Pro-B Natriuret Pep 1170 H, Total Protein 6.4, Albumin 3.5, Globulin 2.9, Albumin/Globulin Ratio 1.2, TSH 0.60, Free T4 0.76 L 01/05/25 13:36: Urine Color Yellow, Urine Appearance Clear, Urine pH 6.0, Ur Specific [place] 1.020, Urine Protein Negative, Urine Glucose (UA) Negative, Urine Ketones Negative, Urine Blood Negative, Urine Nitrate Negative, Urine Bilirubin Negative, Urine Urobilinogen 0.2, Ur Leukocyte Esterase Negative, Urine RBC None, Urine WBC Occasional, Ur Squamous Epith Cells Occasional, Urine Bacteria Trace 01/05/25 12:50 01/05/25 12:50 Response Orders (Tests/Meds): ED MEDICATIONS Generic Name Dose Route Start Last Admin Trade Name Freq PRN Reason Stop Dose Admin Acetaminophen 650 mg 01/05/25 16:07 Acetaminophen 325mg Tab PO 02/04/25 16:06 Q4HP PRN Fever or Mild Pain (1-3) Albuterol/Ipratropium 3 ml 01/05/25 18:20 Ipratropium/Albuterol 3 Ml Neb IH 02/04/25 18:19 Q6RT LINDA Aspirin 81 mg 01/06/25 09:00 Aspirin 81mg Chewable Tablet PO 02/05/25 08:59 DAILY LINDA Atorvastatin Calcium 80 mg 01/05/25 21:00 Atorvastatin 40mg Tablet PO 02/04/25 20:59 HS [facility] Calcium Polycarbophil 1,250 mg 01/06/25 21:00 Calcium Polycarbophil 625mg Tab PO 02/05/25 20:59 DAILY [facility] Citalopram Hydrobromide 40 mg 01/06/25 09:00 Citalopram 40mg Tablet PO 02/05/25 08:59 DAILY [facility] Enoxaparin Sodium 40 mg 01/06/25 09:00 Enoxaparin 40mg/0.4ml Syringe SUBCUT 02/05/25 08:59 DAILY [facility] Famotidine 40 mg 01/05/25 21:00 Famotidine 20mg Tablet PO 02/04/25 20:59 BID [facility] Hydroxyzine Pamoate 25 mg 01/05/25 18:34 Hydroxyzine Pamoate 25mg Capsule PO 02/04/25 18:33 TIDP PRN Anxiety Isosorbide Mononitrate 30 mg 01/05/25 21:00 Isosorbide [place] 30mg Tab.Er.24h PO 02/04/25 20:59 DAILY LINDA Nicotine 21 mg 01/05/25 16:07 Nicotine 21mg/24hr Patch TD 02/04/25 16:06 DAILYP PRN Nicotine Cravings Ondansetron HCl 4 mg 01/05/25 16:07 Ondansetron 4mg/2ml Vial IV 02/04/25 16:06 Q6HP PRN Nausea Potassium Chloride 40 meq 01/05/25 17:00 01/05/25 17:39 Potassium Chloride 20meq Tab PO 01/06/25 01:01 40 meq Q4H LINDA Administration Prasugrel 10 mg 01/06/25 09:00 Prasugrel 10mg Tab PO 02/05/25 08:59 DAILY LINDA Primidone 50 mg 01/05/25 21:00 Primidone 50mg Tablet PO 02/04/25 20:59 BID [facility] Trazodone HCl 100 mg 01/05/25 18:36 Trazodone 50mg Tablet PO 02/04/25 18:35 HSP PRN Insomnia Discontinued Medications Generic Name Dose Route Start Last Admin Trade Name Esperanza PRN Reason Stop Dose Admin Diazepam 5 mg 01/05/25 12:43 01/05/25 12:49 Diazepam 5mg Tablet PO 01/05/25 12:44 5 mg ONCE ONE Administration Fentanyl Citrate 50 mcg 01/05/25 13:56 01/05/25 14:09 Fentanyl 100mcg/2ml Vial IV 01/05/25 13:57 50 mcg ONCE ONE Administration Sodium Chloride 1,000 mls @ 999 mls/hr 01/05/25 13:51 01/05/25 15:16 Sod Chlor 0.9% 1000ml Bag IV 01/05/25 14:51 Infused .Q1H1M ONE Infusion Potassium Chloride/Water 100 mls @ 100 mls/hr 01/05/25 14:41 01/05/25 15:51 Potassium Chloride 10meq/100ml Ivpb IV 01/05/25 15:40 Infused ONCE ONE Infusion ORDERS Category Date Time Status CXR --portable [XR chest portable] Stat Exams 01/05/25 12:34 Completed BNP [NT Pro Brain Natriuretic Pep.] Stat Lab 01/05/25 12:50 Completed CBC w/Auto Diff [Complete Blood Count Auto Diff] Stat Lab 01/05/25 12:50 Completed CMP [Comprehensive Metabolic Panel] Stat Lab 01/05/25 12:50 Completed Free T4 (Free Thyroxine) Stat Lab 01/05/25 12:50 Completed PT/PTT Stat Lab 01/05/25 12:50 Completed TSH [Thyroid Stimulating Hormone] Stat Lab 01/05/25 12:50 Completed Trop I [Troponin I] Stat Lab 01/05/25 12:50 Completed Troponin I Q3H Lab 01/05/25 15:53 Completed Troponin I Q3H Lab 01/05/25 18:45 Ordered Urinalysis and Microscopic Stat Lab 01/05/25 13:36 Completed MDM Narrative Medical Decision Narrative: In summary, patient is a 54-year-old female PMHx STEMI, multiple caths, most recent 48 hours ago with stent placement, CAD, anxiety, history of tobacco use, hyperlipidemia who presents to the ED for complaints of central and left sided chest pain that started almost 2 hours ago. Patient states she was sitting when the pain started. Reports she feels very anxious because she has had cardiac events this year with recent caths. She has taken aspirin today, states she is currently on anticoagulants and has taken those today as well. Upon initial evaluation patient is alert, oriented and cooperative. She does appear anxious, physical exam is unremarkable. Patient still has the bandage on her right wrist from previous Procedure. Initial review of her EKG does not show any ST elevation, it does have artifact so we will obtain his repeat. Patient is requesting medication for anxiety, we agreed upon a Valium. Differential diagnosis include ACS, dissection, pneumonia, pneumothorax, stent failure, graft collapse, infectious process, among others. Discussed with patient we will proceed with cardiac workup including labs, EKGs, chest x-ray, she and her son are agreeable. Patient's blood pressure systolic in the 90s, will administer fentanyl for pain relief. CBC unremarkable for any leukocytosis, stable H&H. PT, INR, APTT normal. CMP remarkable for sodium 134, potassium 3.0 (IVPB potassium ordered), troponin 1.99, BNP 1170. I contacted produce department manager about elevated troponin, chest pain, advised to admit patient due to elevated troponin, recent cath. I contacted hospital medicine to admit patient to their services for elevated troponin, chest pain and hypokalemia.
[2025-01-05] MEDS: diazePAM 5MG TABLET 5 MG PO ×2 (12:49→19:02)
--- NOTE | 2025-01-05 12:56 | ECG_ITS ---
APPROVED REPORT Exam: Resting ECG HR:73 bpm ECG Measurements Heart Rate 73 AXES FL 145 P 62 QRSd 89 QRS 55 QT 445 T 77 QTc 471 Conclusion SINUS RHYTHM MODERATE T-WAVE ABNORMALITY, CONSIDER ANTERIOR ISCHEMIA [-0.1+ mV T-WAVE IN V3/V4] ABNORMAL ECG UNCONFIRMED REPORT NSR. No ST elevation or depression. QTc borderline elevated at 471 Electronically signed by : BUZZ BASSETT, 01/05/2025 15:32:21
--- NOTE | 2025-01-05 13:07 | PC.NURSE ---
called lab for blood results because blood had been sent, dustinreports he would check
[2025-01-05 13:16] LABS: Hematocrit 30.3 % (37.0-47.0); Hemoglobin 10.0 g/dL (12.2-16.2); Immature Granulocytes % 0.4 %; Mean Corpuscular HGB Conc 33.0 g/dL (31.8-35.4); Mean Corpuscular Hemoglobin 28.6 pg (27.0-31.2); Mean Corpuscular Volume 86.6 fl (81-99); Nucleated Red Blood Cells % 0 %; Platelet Count 464 K/mm3 (142-424); Red Blood Count 3.50 M/mm3 (4.20-5.40); Red Cell Distribution Width-SD 42.7 fL; White Blood Count 9.7 K/mm3 (4.8-10.8)
--- NOTE | 2025-01-05 13:16 | PC.NURSE ---
Patient asked for a drink, Dr Carpenter said not at this time. Informed patient
[2025-01-05 13:27] LABS: Alanine Aminotransferase 22 U/L (12-78); Albumin Level 3.5 g/dl (3.5-5.0); Albumin/Globulin Ratio 1.2 (1.1-1.8); Alkaline Phosphatase 93 U/L (38-126); Anion Gap 12.0 mEq/L (5-15); Aspartate Amino Transferase 41 U/L (14-36); Bilirubin,Total 0.3 mg/dl (0.2-1.3); Blood Urea Nitrogen 5 mg/dl (7-17); Calcium 8.5 mg/dl (8.4-10.2); Carbon Dioxide 23 mmol/L (22.0-30.0); Chloride 102 mmol/L (98-107); Creatinine Clearance Estimated 73 mL/min (50-200); Creatinine,Serum 0.80 mg/dl (0.52-1.04); Estimated Glomerular Filt Rate 74 ml/min (>60); GFR (African American) 90 ML/MIN (>60); Globulin 2.9 g/dL (1.3-3.2); Glucose 153 mg/dl (74-100); Sodium 134 mmol/L (136-145); Total Protein,Serum 6.4 g/dl (6.3-8.2)
[2025-01-05 13:29] LABS: Activated Partial Thrombo Time 26.5 seconds (22.8-30.6); INR 1.00 (0.9-1.1); Prothrombin Time 11.1 seconds (10.1-12.5)
[2025-01-05 13:35] LABS: Potassium 3.0 mmoL/L (3.5-5.1)
[2025-01-05 13:37] LABS: NT Pro Brain Natriuretic Pep. 1170 pg/mL (0-125)
[2025-01-05 13:39] LABS: Microscopic, Urine URINE MICROSCOPIC (MICROSCOPIC)
[2025-01-05 13:40] LABS: Troponin I 1.99 ng/ml (0.00-0.034)
--- NOTE | 2025-01-05 13:46 | PC.NURSE ---
Yazan ANTOINE spoke with who advises to admit to the hospitalist, . Pauline called the hospitalist who states he will call about the possiblity of admission and will return our call.
--- NOTE | 2025-01-05 13:48 | PC.NURSE ---
provider on the phone with cardiology
[2025-01-05 13:49] LABS: Bilirubin,Urine Negative (Negative); Color,Urine YELLOW (Yellow); Glucose,Urine (UA) Negative (Negative); Ketones,Urine Negative (Negative); Leukocyte Esterase,Urine Negative (Negative); PH,Urine 6.0 (5.0-8.5); Protein,Urine Negative (Negative); Specific Gravity, Urine 1.020 (1.005-1.030); Urobilinogen,Urine 0.2 EU/dl (0.2)
[2025-01-05 13:57] LABS: Thyroid Stimulating Hormone 0.60 uIU/mL (0.465-4.68)
[2025-01-05 14:03] LABS: Bacteria,Urine Trace /lpf; Squamous Epithelial Cell,Urine Occasional #/hpf (0-5); WBC,Urine Occasional #/hpf (0-3)
[2025-01-05] MEDS: 0.9 % SODIUM CHLORIDE 1000ML 1,000 ML 999 ML IV (14:05)
[2025-01-05] MEDS: FENTANYL 100MCG/2ML VIAL 50 MCG IV (14:09)
--- NOTE | 2025-01-05 14:10 | PC.NURSE ---
provider vandana notified patient would like to speak with her about her care.
--- NOTE | 2025-01-05 14:16 | PC.NURSE ---
dr parekh went to bedside
[2025-01-05 14:17] LABS: Free T4 (Free Thyroxine) 0.76 ng/dl (0.78-2.19)
--- NOTE | 2025-01-05 14:41 | PC.NURSE ---
call made to [facility] for bed assignment
--- NOTE | 2025-01-05 14:58 | PC.NURSE ---
attempted report at [id number]
--- NOTE | 2025-01-05 14:59 | HMH.PHAINT1 ---
Pharmacy Intervention Comments: MEDICATION RECONCILIATION COMPLETE USING EXTERNAL PHARMACY FILL HISTORY, RECENT CARDIOLOGY OFFICE VISIT NOTE, AND RECENT HOSPITAL DISCHARGE NOTE.
--- NOTE | 2025-01-05 16:07 | EXP.HP ---
History of Present Illness *Admission Date: 01/05/25 *Reason for visit:: Chest pain *History of present illness: Rere Reese is a 54-year-old female with extensive cardiac history, CABG in April 2024, History of bowel ischemia status post resection, C. difficile, CAD with stents, anxiety/depression, GERD who presents with acute onset left-upper chest pain that began around 11 this morning. Patient stated it woke her up from sleep, was sharp in nature, with radiation to her left upper back. Denies concomitant shortness of breath, dizziness. Patient recently had a outpatient C on 01/03/2025 and received 3 continuous stents to the RCA with severe stenosis. Patient has been adherent to her aspirin and Plavix, as well as her Protonix. Unfortunately, due to a stressful year for medical complications she has a lot of anxiety. Workup in the ED significant for Initial troponin 1.99, improving to 1.41. CBC, CMP relatively unremarkable. Dr. Bentley was consulted who recommended admission and agreed to admit for further evaluation and management. [facility] Disclaimer: The information contained in this section may have been updated after the patient was seen, as this information can be updated by other users. Medical History Peripheral arterial disease Hyperlipidemia Angina pectoris Bleeding nose Dyspnea Cough Colostomy in place Heart attack Depression Anxiety History of pleurisy Hemorrhoid Essential tremor Endometriosis Surgical History History of coronary artery bypass graft History of colostomy History of hand surgery History of X3 Hx of cholecystectomy H/O rotator cuff surgery LEFT History of hysterectomy Family History Other Essential tremor Family history of heart disease Social History (Updated 01/03/25 @ 07:58 by Beckie Urbano RN) Smoking Status: Never smoker alcohol intake: never substance use type: denies use current occupational status: unemployed and retired Travel in the last 8 weeks?: Inside the [place] household members: family housing: house caffeine: Yes Have you lived/traveled outside US in past 30 days?: No Contact w/someone who lives/traveled outside US past 30 days?: No Exposure to someone with infectious disease in past 14 days?: No Do you have a fever (greater than 100.4 F or 38 C)?: No Have you tested positive for COVID-19?: No Exposed to someone with COVID-19 in past 14 days?: No Do you have a sore throat?: No Do you have a cough?: No Do you have any weakness?: No Do you have any diarrhea?: No Are you experiencing any unusual bleeding?: No Do you have any muscle aches/pain?: No Do you have any abdominal pain?: No Are you experiencing loss of taste or smell?: No Other Medical History Have you received the Flu Vaccine for this season: No Have you received the Pneumonia Vaccine: Yes Meds Home Medications and Allergies Home Medications ?Medication ?Instructions ?Recorded ?Confirmed ?Type citalopram 40 mg tablet 40 mg PO DAILY 12/23/23 01/05/25 History primidone 50 mg tablet 50 mg PO BID 12/23/23 01/05/25 History bupropion HCl 300 mg 24 hr tablet, 300 mg PO DAILY 05/01/24 01/05/25 History extended release aspirin 81 mg chewable tablet 81 mg PO DAILY 07/21/24 01/05/25 History rosuvastatin 40 mg tablet 40 mg PO HS 07/21/24 01/05/25 History metoprolol tartrate 25 mg tablet 12.5 mg (1/2 x 25 mg) PO BID #30 09/04/24 01/05/25 Rx tabs trazodone 100 mg tablet 100 mg PO HSP PRN Insomnia 12/18/24 01/05/25 History losartan 25 mg tablet 25 mg PO DAILY 12/27/24 01/05/25 History prasugrel HCl 10 mg tablet 10 mg PO DAILY #30 tabs 12/27/24 01/05/25 Rx menthol 0.44 %-zinc oxide 20.6 % 1 applic topical DIRECTED Skin 01/05/25 01/05/25 History topical ointment (Calmoseptine) Condition New Prescriptions to Start Prescriptions: Allergies Allergy/AdvReac Type Severity Reaction Status Date / Time No Known Allergies Allergy Verified 12/27/24 14:39 Exam Data for Last 24 hours Vital signs and Labs for Last 24 Hours: Temp Pulse Resp BP Pulse Ox O2 Del Method 98.6 F 75 13 106/67 L 95 Room Air 01/05/25 12:36 01/05/25 15:00 01/05/25 15:00 01/05/25 15:00 01/05/25 15:00 01/05/25 15:00 Laboratory Results - last 24 hr 01/05/25 12:50: WBC 9.7, RBC 3.50 L, Hgb 10.0 L, Hct 30.3 L, MCV 86.6, MCH 28.6, MCHC 33.0, RDW 13.4, Plt Count 464 H, MPV 9.6, Neut % (Auto) 59.1, Lymph % (Auto) 28.8, [place] % (Auto) 8.4, Eos % (Auto) 2.3, Baso % (Auto) 1.0, Neut # (Auto) 5.7, Lymph # (Auto) 2.8, [place] # (Auto) 0.8, Eos # (Auto) 0.2, Baso # (Auto) 0.1, PT 11.1, INR 1.00, APTT 26.5, Sodium 134 L, Potassium 3.0 L, Chloride 102, Carbon Dioxide 23, Anion Gap 12.0, BUN 5 L D, Creatinine 0.80, Estimated Creat Clear 73, Estimated GFR 74, Est GFR ( Amer) 90, Glucose 153 H, Calcium 8.5, Total Bilirubin 0.3, AST 41 H, ALT 22, Alkaline Phosphatase 93, Troponin I 1.99 H, NT-Pro-B Natriuret Pep 1170 H, Total Protein 6.4, Albumin 3.5, Globulin 2.9, Albumin/Globulin Ratio 1.2, TSH 0.60, Free T4 0.76 L 01/05/25 13:36: Urine Color Yellow, Urine Appearance Clear, Urine pH 6.0, Ur Specific [place] 1.020, Urine Protein Negative, Urine Glucose (UA) Negative, Urine Ketones Negative, Urine Blood Negative, Urine Nitrate Negative, Urine Bilirubin Negative, Urine Urobilinogen 0.2, Ur Leukocyte Esterase Negative, Urine RBC None, Urine WBC Occasional, Ur Squamous Epith Cells Occasional, Urine Bacteria Trace I & O for Last 24 hours: Intake & Output 01/02/25 01/03/25 01/04/25 01/05/25 23:59 23:59 23:59 23:59 Intake Total 1000 / 1000 Balance 1000 / 1000 Weight 58.06 kg Constitutional Constitutional: no acute distress and chronically ill appearing *Routine HEENT Exam Head: Present normocephalic Eye: Present EOMI and PERRL ENT: Present mucous membranes moist *Routine Neck Exam Neck: Present supple; Absent lymphadenopathy *Routine Respiratory Exam Respiratory: Present CTA bilaterally *Routine Cardiovascular Exam Cardiovascular: Present RRR *Routine Abdominal Exam Abdominal: Present soft and normoactive bowel sounds; Absent tenderness Comments: Colostomy site intact. *Routine Rectal Exam Rectal:: deferred *Routine Genitalia Exam Genitalia:: deferred *Routine Extremities Exam Extremities: Absent cyanosis, clubbing or edema *Routine Skin Exam Skin: Present warm; Absent rash *Routine Neurological Exam Neurological: Present alert and oriented X3 Assessment and Plan *Assessment and plan (1) Chest pain: Status: Acute Category: Medical Code(s): R07.9 - Chest pain, unspecified Plan Rere Reese is a 54-year-old female with extensive cardiac history, CABG in April 2024, History of bowel ischemia status post resection, C. difficile, CAD with stents, anxiety/depression, GERD who presents with acute onset left-upper chest pain that began around 11 this morning. Patient stated it woke her up from sleep, was sharp in nature, with radiation to her left upper back. Denies concomitant shortness of breath, dizziness. Patient recently had a outpatient LHC on 01/03/2025 and received 3 continuous stents to the RCA with severe stenosis. Patient has been adherent to her aspirin and Plavix, as well as her Protonix. Unfortunately, due to a stressful year for medical complications she has a lot of anxiety. Workup in the ED significant for Initial troponin 1.99, improving to 1.41. CBC, CMP relatively unremarkable. Dr. Bentley was consulted who recommended admission and agreed to admit for further evaluation and management. #Chest pain #NSTEMI, likely type II #History of CABG April 2024 #History of CAD with multiple stents ? Presented with left-sided chest pain with radiation to left back. ? Troponin 1.99-1.41, EKG without acute ischemic changes. Troponinemia in the setting of recent heart cath. ? Recent LHC on 01/03/2025 and received 3's stents to RCA. Has been adherent to aspirin, Effient. ? Is unclear where patient's chest pain is coming from at this time. Not reproducible to palpation. Does have a known 1.2 cm anterior left upper lobe subpleural nodule. ? Nitro tab seems to have alleviated some of the symptoms, will start isosorbide mononitrate 30 mg. ? Follow-up response to GI cocktail. ? Continue aspirin 81 mg, Plavix 75 mg, atorvastatin 40 mg. ? Started metoprolol succinate 25 mg, Imdur 30 mg. ? Follow-up cardiology recommendations on Tuesday. #Chronic nonproductive cough #Suspected COPD ? Started DuoNebs. Will consider starting maintenance inhaler. #History of bowel ischemia with colostomy ? Stable. Patient states she is having increased output recently, but not like the time she had diarrhea. ? Started FiberCon daily. #GERD ? Continue famotidine 40 mg twice daily. #History of C. difficile ? Patient is a known carrier. No high output at this time. Will hold on treatment or testing. #Anxiety/depression ? Continue citalopram 40 mg. Primidone 50 mg twice daily, hydroxyzine 10 mg as needed every 8 hours.
[2025-01-05 16:51] LABS: Troponin I 1.41 ng/ml (0.00-0.034)
--- NOTE | 2025-01-05 17:13 | PC.NURSE ---
notified of critical troponin- 1.44
[2025-01-05] MEDS: POTASSIUM CHLORIDE 20MEQ TAB 40 MEQ PO ×2 (17:39→20:43)
[2025-01-05] MEDS: IPRATROPIUM/ALBUTEROL 3 ML NEB IH ×2 (18:53→23:00)
[2025-01-05] MEDS: BELLADONNA ALKALOIDS 60 ML ML PO (19:03)
[2025-01-05] MEDS: NITROGLYCERIN 0.4MG SL TABLET 0.2 MG SL ×2 (19:04→20:44)
[2025-01-05 19:33] LABS: Troponin I 2.11 ng/ml (0.00-0.034)
--- NOTE | 2025-01-05 20:35 | ECG_ITS ---
APPROVED REPORT Exam: Resting ECG HR:84 bpm ECG Measurements Heart Rate 84 AXES QRSd 86 QRS 49 QT 441 T 75 QTc 482 Conclusion Sinus rhythm MODERATE T-WAVE ABNORMALITY, Unchanged from prior ABNORMAL ECG UNCONFIRMED REPORT Electronically signed by : Champ Quiroz MD 01/06/2025 12:41:43
[2025-01-05] MEDS: ATORVASTATIN 40MG TABLET 80 MG PO (20:43)
[2025-01-05] MEDS: TRAZODONE 50MG TABLET 100 MG PO (20:43)
[2025-01-05] MEDS: ISOSORBIDE MONO 30MG TAB.ER.24H 30 MG PO (20:46)
[2025-01-05] MEDS: ACETAMINOPHEN 325MG TAB 650 MG PO (22:52)
[2025-01-06] VITALS (11 sets, daily range): BP systolic 85–112; BP diastolic 47–58; PULSE 73–85; RESP 14–18; TEMP 36.5–37; O2SAT 93–99; BMI 25.6
[2025-01-06] MEDS: POTASSIUM CHLORIDE 20MEQ TAB 40 MEQ PO (00:08)
[2025-01-06] MEDS: 0.9 % SODIUM CHLORIDE 1000ML 1,000 ML 250 ML IV (00:09)
[2025-01-06] MEDS: diazePAM 5MG TABLET 5 MG PO ×3 (00:56→20:37)
--- NOTE | 2025-01-06 04:50 | PC.NURSE ---
Pt A&OX4 and has tolerated room air. She did complain of chest pain at the beginning of the shift. A EKG taken and a nitro tablet giving. Pt stated relief shortly after. She did complain of anxiety multiple times this shift. She has been medicated per APR. Pts BP was running low. Hospitalist notified and a 1000ml bolus given. She has ambulated to the bathroom independently. No other complaints at this time, call light within reach.
[2025-01-06 06:59] LABS: Hematocrit 28.4 % (37.0-47.0); Immature Granulocytes % 0.5 %; Mean Corpuscular HGB Conc 31.3 g/dL (31.8-35.4); Mean Corpuscular Hemoglobin 27.6 pg (27.0-31.2); Mean Corpuscular Volume 87.9 fl (81-99); Nucleated Red Blood Cells % 0 %; Platelet Count 409 K/mm3 (142-424); Red Blood Count 3.23 M/mm3 (4.20-5.40); Red Cell Distribution Width-SD 43.9 fL; White Blood Count 8.5 K/mm3 (4.8-10.8)
[2025-01-06 07:09] LABS: Alanine Aminotransferase 15 U/L (12-78); Albumin Level 3.1 g/dl (3.5-5.0); Albumin/Globulin Ratio 1.2 (1.1-1.8); Alkaline Phosphatase 89 U/L (38-126); Anion Gap 7.2 mEq/L (5-15); Aspartate Amino Transferase 30 U/L (14-36); Bilirubin,Total 0.2 mg/dl (0.2-1.3); Blood Urea Nitrogen 6 mg/dl (7-17); Calcium 8.2 mg/dl (8.4-10.2); Carbon Dioxide 22 mmol/L (22.0-30.0); Chloride 110 mmol/L (98-107); Cholesterol 94 mg/dl (140-200); Creatinine Clearance Estimated 77 mL/min (50-200); Creatinine,Serum 0.80 mg/dl (0.52-1.04); Estimated Glomerular Filt Rate 74 ml/min (>60); GFR (African American) 90 ML/MIN (>60); Globulin 2.6 g/dL (1.3-3.2); Glucose 91 mg/dl (74-100); HDL Cholesterol 40 mg/dl (40-60); Magnesium 1.9 mg/dl (1.6-2.3); Potassium 4.2 mmoL/L (3.5-5.1); Sodium 135 mmol/L (136-145); Total Protein,Serum 5.7 g/dl (6.3-8.2); Triglycerides 102 mg/dl (30-150)
[2025-01-06 07:40] LABS: Hemoglobin 8.9 g/dL (12.2-16.2)
[2025-01-06 08:46] LABS: Troponin I 2.61 ng/ml (0.00-0.034)
[2025-01-06] MEDS: PRIMIDONE 50MG TABLET 50 MG PO ×2 (08:46→20:37)
[2025-01-06] MEDS: PRASUGREL 10MG TAB 10 MG PO (08:46)
[2025-01-06] MEDS: ASPIRIN 81MG CHEWABLE TABLET 81 MG PO (08:46)
[2025-01-06] MEDS: CITALOPRAM 40MG TABLET 40 MG PO (08:46)
[2025-01-06] MEDS: FAMOTIDINE 20MG TABLET 40 MG PO ×2 (08:46→20:38)
[2025-01-06] MEDS: RANOLAZINE 500MG ER TABLET 500 MG PO ×2 (11:45→20:37)
[2025-01-06] MEDS: HYDROCODONE/APAP 5/325 MG TABLET 1 TAB PO (16:47)
--- NOTE | 2025-01-06 17:13 | PC.NURSE ---
Pt is A&Ox4. Vital signs stable tolerating room air. Pt has had complaints of anxiety and chest pain. Hospitalist notified. Hospitalist states no need for EKG at this time. PRN anxiety and pain medication given with relief. Colostomy in place. Cardiology to see pt. Pt encouraged to sit up in chair today but refused. Pt resting comfortably supine in bed with no further needs voiced at this time. Call light within reach.
--- NOTE | 2025-01-06 17:36 | P.PN_ITS ---
Subjective *Date: 01/06/25 *Time: 17:36 Interval history: Patient continues to be tearful, anxious and have chest pain. She states her chest pain wakes her up from sleep. Discussed extensively with Dr. Bentley, he advised chest pain is likely from arteritis from significant RCA stretching for stents. Does not trending troponin. Recommended starting Imdur, Ranexa but Imdur caused soft blood pressures. Exam Data for Last 24 hours Vital signs and Labs for Last 24 Hours: Temp Pulse Resp BP Pulse Ox O2 Del Method 98.6 F 84 18 112/58 L 99 Room Air 01/06/25 16:00 01/06/25 16:00 01/06/25 16:00 01/06/25 16:00 01/06/25 16:00 01/06/25 17:00 Laboratory Results - last 24 hr 01/05/25 19:00: Troponin I 2.11 H 01/06/25 06:25: WBC 8.5, RBC 3.23 L, Hgb 8.9 L D, Hct 28.4 L, MCV 87.9, MCH 27.6, MCHC 31.3 L, RDW 13.6, Plt Count 409, MPV 9.5, Neut % (Auto) 47.5, Lymph % (Auto) 37.3, [place] % (Auto) 10.6 H, Eos % (Auto) 3.2, Baso % (Auto) 0.9, Neut # (Auto) 4.0, Lymph # (Auto) 3.2, [place] # (Auto) 0.9, Eos # (Auto) 0.3, Baso # (Auto) 0.1, Sodium 135 L, Potassium 4.2 D, Chloride 110 H, Carbon Dioxide 22, Anion Gap 7.2, BUN 6 L, Creatinine 0.80, Estimated Creat Clear 77, Estimated GFR 74, Est GFR ( Amer) 90, Glucose 91 D, Calcium 8.2 L, Magnesium 1.9, Total Bilirubin 0.2, AST 30 D, ALT 15 D, Alkaline Phosphatase 89, Troponin I 2.61 H, Total Protein 5.7 L, Albumin 3.1 L D, Globulin 2.6, Albumin/Globulin Ratio 1.2, Triglycerides 102, Cholesterol 94 L, LDL Cholesterol Direct 44.87 L, VLDL Cholesterol 20, HDL Cholesterol 40, Cholesterol/HDL Ratio 2.4 I & O for Last 24 hours: Intake & Output 01/03/25 01/04/25 01/05/25 01/06/25 23:59 23:59 23:59 23:59 Intake Total 1400 / 1800 1940 / 1940 Output Total 350 / 350 400 / 400 Balance 1050 / 1450 1540 / 1540 Weight 58.06 kg 61.598 kg Constitutional Constitutional: no acute distress and chronically ill appearing *Routine HEENT Exam Head: Present normocephalic Eye: Present EOMI and PERRL ENT: Present mucous membranes moist *Routine Neck Exam Neck: Present supple; Absent lymphadenopathy *Routine Respiratory Exam Respiratory: Present CTA bilaterally *Routine Cardiovascular Exam Cardiovascular: Present RRR *Routine Abdominal Exam Abdominal: Present soft and normoactive bowel sounds; Absent tenderness *Routine Extremities Exam Extremities: Absent cyanosis, clubbing or edema *Routine Skin Exam Skin: Present warm; Absent rash *Routine Neurological Exam Neurological: Present alert and oriented X3 Assessment and Plan *Assessment and plan (1) Chest pain: Status: Acute Category: Medical Code(s): R07.9 - Chest pain, unspecified Plan Rere Reese is a 54-year-old female with extensive cardiac history, CABG in April 2024, History of bowel ischemia status post resection, C. difficile, CAD with stents, anxiety/depression, GERD who presents with acute onset left-upper chest pain that began around 11 this morning. Patient stated it woke her up from sleep, was sharp in nature, with radiation to her left upper back. Denies concomitant shortness of breath, dizziness. Patient recently had a outpatient [facility] on 01/03/2025 and received 3 continuous stents to the RCA with severe stenosis. Patient has been adherent to her aspirin and Plavix, as well as her Protonix. Unfortunately, due to a stressful year for medical complications she has a lot of anxiety. Workup in the ED significant for Initial troponin 1.99, improving to 1.41. CBC, CMP relatively unremarkable. Dr. Bentley was consulted who recommended admission and agreed to admit for further evaluation and management. #Chest pain #NSTEMI, likely type II #History of CABG April 2024 #History of CAD with multiple stents ? Presented with left-sided chest pain with radiation to left back. ? Troponin 1.99-1.41 but has since up trended to 2.61, serial EKG without acute ischemic changes. Troponinemia in the setting of recent heart cath. ? Recent LHC on 01/03/2025 and received 3's stents to RCA. Has been adherent to aspirin, Effient. ? Patient continues to be tearful, anxious and have chest pain. She states her chest pain wakes her up from sleep. ? Discussed extensively with Dr. Bentley, he advised chest pain is likely from arteritis from significant RCA stretching for stents. Does not trending troponin. Recommended starting Imdur, Ranexa but Imdur caused soft blood pressures. ? Started Ranexa 500 mg twice daily. ? Continue aspirin 81 mg, Plavix 75 mg, atorvastatin 40 mg, metoprolol succinate 25 mg. ? Started Golden, morphine for chest pain. Continue Valium as needed for anxiety. ? Follow-up cardiology recommendations on Tuesday. #Chronic nonproductive cough #Suspected COPD ? Continue DuoNebs. Will consider starting maintenance inhaler. #History of bowel ischemia with colostomy ? Stable. Patient states she is having increased output recently, but not like the time she had diarrhea. ? Continue FiberCon daily. #GERD ? Continue famotidine 40 mg twice daily. #History of C. difficile ? Patient is a known carrier. No high output at this time. Will hold on treatment or testing. #Anxiety/depression ? Continue citalopram 40 mg. Primidone 50 mg twice daily, hydroxyzine 10 mg as needed every 8 hours. Full code DVT prophylaxis: Lovenox 40 mg
[2025-01-06] MEDS: IPRATROPIUM/ALBUTEROL 3 ML NEB IH ×2 (17:55→23:37)
[2025-01-06] MEDS: CALCIUM POLYCARBOPHIL 625MG TAB 1250 MG PO (20:37)
[2025-01-06] MEDS: ATORVASTATIN 40MG TABLET 80 MG PO (20:38)
[2025-01-06] MEDS: 0.9 % SODIUM CHLORIDE 500 ML IV (20:45)
[2025-01-07] VITALS: BP 114/62; PULSE 75; PULSE 79; RESP 16; TEMP 36.9; O2SAT 98
[2025-01-07 04:00] VITALS: BP 115/68; PULSE 80; RESP 18; TEMP 36.8; O2SAT 98; BMI 25.6
[2025-01-07] MEDS: HYDROCODONE/APAP 5/325 MG TABLET 1 TAB PO (04:11)
--- NOTE | 2025-01-07 04:24 | PC.NURSE ---
Pt is A&OX4 and has tolerated room air. Pt did have one episode of chest pain and was medicated per APR. Pt did receive a 500 ml NS bolus due to hypertension. She has ambulated with standby assist. No other complaints at this time, call light within reach.
[2025-01-07 06:19] VITALS: PULSE 62; PULSE 68
[2025-01-07] MEDS: IPRATROPIUM/ALBUTEROL 3 ML NEB IH ×2 (06:19→11:30)
[2025-01-07 06:24] LABS: Hematocrit 28.4 % (37.0-47.0); Hemoglobin 9.5 g/dL (12.2-16.2); Immature Granulocytes % 0.4 %; Mean Corpuscular HGB Conc 33.5 g/dL (31.8-35.4); Mean Corpuscular Hemoglobin 29.0 pg (27.0-31.2); Mean Corpuscular Volume 86.6 fl (81-99); Nucleated Red Blood Cells % 0 %; Platelet Count 411 K/mm3 (142-424); Red Blood Count 3.28 M/mm3 (4.20-5.40); Red Cell Distribution Width-SD 42.7 fL; White Blood Count 11.1 K/mm3 (4.8-10.8)
[2025-01-07 06:39] LABS: Alanine Aminotransferase 13 U/L (12-78); Albumin Level 3.2 g/dl (3.5-5.0); Albumin/Globulin Ratio 1.2 (1.1-1.8); Alkaline Phosphatase 87 U/L (38-126); Anion Gap 6.7 mEq/L (5-15); Aspartate Amino Transferase 30 U/L (14-36); Bilirubin,Total 0.2 mg/dl (0.2-1.3); Blood Urea Nitrogen 7 mg/dl (7-17); Calcium 8.4 mg/dl (8.4-10.2); Carbon Dioxide 26 mmol/L (22.0-30.0); Chloride 104 mmol/L (98-107); Creatinine Clearance Estimated 77 mL/min (50-200); Creatinine,Serum 0.80 mg/dl (0.52-1.04); Estimated Glomerular Filt Rate 74 ml/min (>60); GFR (African American) 90 ML/MIN (>60); Globulin 2.7 g/dL (1.3-3.2); Glucose 101 mg/dl (74-100); Magnesium 1.8 mg/dl (1.6-2.3); Potassium 3.7 mmoL/L (3.5-5.1); Sodium 133 mmol/L (136-145); Total Protein,Serum 5.9 g/dl (6.3-8.2)
[2025-01-07 08:00] VITALS: BP 95/60; PULSE 70; PULSE 76; RESP 16; TEMP 36.6; O2SAT 99
[2025-01-07] MEDS: ASPIRIN 81MG CHEWABLE TABLET 81 MG PO (09:11)
[2025-01-07] MEDS: METOPROLOL SUCCINATE XL 25MG TABLET 25 MG PO (09:12)
[2025-01-07] MEDS: CITALOPRAM 40MG TABLET 40 MG PO (09:13)
[2025-01-07] MEDS: PRIMIDONE 50MG TABLET 50 MG PO (09:13)
[2025-01-07] MEDS: FAMOTIDINE 20MG TABLET 40 MG PO (09:13)
[2025-01-07] MEDS: RANOLAZINE 500MG ER TABLET 500 MG PO (09:13)
[2025-01-07] MEDS: PRASUGREL 10MG TAB 10 MG PO (09:13)
[2025-01-07] MEDS: diazePAM 5MG TABLET 5 MG PO (09:30)
--- NOTE | 2025-01-07 09:45 | EXP.DC.SUM ---
General Admission date:: 01/05/25 HPI HPI HPI: Rere Reese is a 54-year-old female with extensive cardiac history, CABG in April 2024, History of bowel ischemia status post resection, C. difficile, CAD with stents, anxiety/depression, GERD who presents with acute onset left-upper chest pain that began around 11 this morning. Patient stated it woke her up from sleep, was sharp in nature, with radiation to her left upper back. Denies concomitant shortness of breath, dizziness. Patient recently had a outpatient LHC on 01/03/2025 and received 3 continuous stents to the RCA with severe stenosis. Patient has been adherent to her aspirin and Plavix, as well as her Protonix. Unfortunately, due to a stressful year for medical complications she has a lot of anxiety. Workup in the ED significant for Initial troponin 1.99, improving to 1.41. CBC, CMP relatively unremarkable. Dr. Bentley was consulted who recommended admission and agreed to admit for further evaluation and management. Hospital Course Hospital Course Hospital Course: Rere Reese is a 54-year-old female with extensive cardiac history, CABG in April 2024, History of bowel ischemia status post resection, C. difficile, CAD with stents, anxiety/depression, GERD who presents with acute onset left-upper chest pain that began around 11 this morning. Patient stated it woke her up from sleep, was sharp in nature, with radiation to her left upper back. Denies concomitant shortness of breath, dizziness. Patient recently had a outpatient LHC on 01/03/2025 and received 3 continuous stents to the RCA with severe stenosis. Patient has been adherent to her aspirin and Plavix, as well as her Protonix. Unfortunately, due to a stressful year for medical complications she has a lot of anxiety. Workup in the ED significant for Initial troponin 1.99, improving to 1.41. CBC, CMP relatively unremarkable. Dr. Bentley was consulted who recommended admission and agreed to admit for further evaluation and management. #Chest pain #NSTEMI, likely type II #History of CABG April 2024 #History of CAD with multiple stents ? Presented with left-sided chest pain with radiation to left back. Chest pain wakes her up from sleep. ? Troponin 1.99-1.41 but has since up trended to 2.61, serial EKG without acute ischemic changes. Troponinemia in the setting of recent heart cath. ? Recent LHC on 01/03/2025 and received MILIND x 3 to RCA. Has been adherent to aspirin, Effient. ? Given recurrent chest pain and tumultuous year patient was very anxious, tearful on exam throughout hospital course. ? Discussed extensively with Dr. Bentley, he advised chest pain is likely from arteritis from significant RCA stretching for stents. Does not recommend continuing to trend troponin. Recommended starting Imdur, Ranexa but Imdur caused soft blood pressures. Dr. Bentley spoke with patient personally and after conversations patient feels reassured. Chest pain well-controlled with Darling. ? Continue aspirin 81 mg, Plavix 75 mg, atorvastatin 40 mg. ? Discharged with Darling 5 mg as needed, Ranexa 500 mg twice daily, metoprolol succinate 25 mg daily. ? Follow-up with cardiology within 1 week. #Hypertension ? Hold home losartan as blood pressures intermittently soft. Overall normal pressures here without ARB. #History of bowel ischemia with colostomy ? Stable. Patient states she is having increased output recently, but not like the time she had diarrhea. ? Continue FiberCon as needed. #Chronic nonproductive cough #GERD ? Started famotidine 40 mg twice daily with improvement in symptoms. Avoiding PPI due to history of C. difficile. #History of C. difficile ? Patient is a known carrier. No high output at this time. Will hold on treatment or testing. #Anxiety/depression ? Continue citalopram 40 mg. Primidone 50 mg twice daily, hydroxyzine 10 mg as needed every 8 hours. ? Discharged with Valium as needed. Total time spent on discharge: 36 minutes on chart review, counseling, documentation, and direct care with patient. Exam Data for Last 24 hours Vital signs and Labs for Last 24 Hours: Temp Pulse Resp BP Pulse Ox O2 Del Method 97.9 F 76 16 95/60 L 99 Room Air 01/07/25 08:00 01/07/25 08:00 01/07/25 08:00 01/07/25 08:00 01/07/25 08:00 01/07/25 09:00 Laboratory Results - last 24 hr 01/07/25 05:56: WBC 11.1 H D, RBC 3.28 L, Hgb 9.5 L, Hct 28.4 L, MCV 86.6, MCH 29.0, MCHC 33.5, RDW 13.6, Plt Count 411, MPV 9.8, Neut % (Auto) 62.3, Lymph % (Auto) 22.0, [place] % (Auto) 11.4 H, Eos % (Auto) 2.8, Baso % (Auto) 1.1, Neut # (Auto) 6.9, Lymph # (Auto) 2.4, [place] # (Auto) 1.3 H, Eos # (Auto) 0.3, Baso # (Auto) 0.1, Sodium 133 L, Potassium 3.7, Chloride 104, Carbon Dioxide 26, Anion Gap 6.7, BUN 7, Creatinine 0.80, Estimated Creat Clear 77, Estimated GFR 74, Est GFR ( Amer) 90, Glucose 101 H, Calcium 8.4, Magnesium 1.8, Total Bilirubin 0.2, AST 30, ALT 13, Alkaline Phosphatase 87, Total Protein 5.9 L, Albumin 3.2 L, Globulin 2.7, Albumin/Globulin Ratio 1.2 I & O for Last 24 hours: Intake & Output 01/04/25 01/05/25 01/06/25 01/07/25 23:59 23:59 23:59 23:59 Intake Total 1400 / 1800 3100 / 3500 670 / 670 Output Total 350 / 350 400 / 400 0 / 0 Balance 1050 / 1450 2700 / 3100 670 / 670 Weight 58.06 kg 61.598 kg 61.507 kg Constitutional Constitutional: no acute distress and chronically ill appearing *Routine HEENT Exam Head: Present normocephalic Eye: Present EOMI and PERRL ENT: Present mucous membranes moist *Routine Neck Exam Neck: Present supple; Absent lymphadenopathy *Routine Respiratory Exam Respiratory: Present CTA bilaterally *Routine Cardiovascular Exam Cardiovascular: Present RRR *Routine Abdominal Exam Abdominal: Present soft and normoactive bowel sounds; Absent tenderness *Routine Extremities Exam Extremities: Absent cyanosis, clubbing or edema *Routine Skin Exam Skin: Present warm; Absent rash *Routine Neurological Exam Neurological: Present alert and oriented X3 Results Data Completed and Pending Labs on day of discharge: Labs from last 24 hours 01/07/25 05:56 WBC 11.1 H D RBC 3.28 L Hgb 9.5 L Hct 28.4 L MCV 86.6 MCH 29.0 MCHC 33.5 RDW 13.6 Plt Count 411 MPV 9.8 Neut % (Auto) 62.3 Lymph % (Auto) 22.0 [place] % (Auto) 11.4 H Eos % (Auto) 2.8 Baso % (Auto) 1.1 Neut # (Auto) 6.9 Lymph # (Auto) 2.4 [place] # (Auto) 1.3 H Eos # (Auto) 0.3 Baso # (Auto) 0.1 Sodium 133 L Potassium 3.7 Chloride 104 Carbon Dioxide 26 Anion Gap 6.7 BUN 7 Creatinine 0.80 Estimated Creat Clear 77 Estimated GFR 74 Est GFR ( Amer) 90 Glucose 101 H Calcium 8.4 Magnesium 1.8 Total Bilirubin 0.2 AST 30 ALT 13 Alkaline Phosphatase 87 Total Protein 5.9 L Albumin 3.2 L Globulin 2.7 Albumin/Globulin Ratio 1.2 DS: Diagnosis Discharge Diagnosis (1) Chest pain: Status: Acute Code(s): R07.9 - Chest pain, unspecified Meds Home Medications and Allergies Home Medications ?Medication ?Instructions ?Recorded ?Confirmed ?Type citalopram 40 mg tablet 40 mg PO DAILY 12/23/23 01/05/25 History primidone 50 mg tablet 50 mg PO BID 12/23/23 01/05/25 History bupropion HCl 300 mg 24 hr tablet, 300 mg PO DAILY 05/01/24 01/05/25 History extended release aspirin 81 mg chewable tablet 81 mg PO DAILY 07/21/24 01/05/25 History rosuvastatin 40 mg tablet 40 mg PO HS 07/21/24 01/05/25 History trazodone 100 mg tablet 100 mg PO HSP PRN Insomnia 12/18/24 01/05/25 History losartan 25 mg tablet 25 mg PO DAILY 12/27/24 01/05/25 History Held on 01/07/25. Instructions: Resume on 01/14/25. Your blood pressures were normal without this medication. Please follow-up with cardiology to discuss restarting this medication. prasugrel HCl 10 mg tablet 10 mg PO DAILY #30 tabs 12/27/24 01/05/25 Rx menthol 0.44 %-zinc oxide 20.6 % 1 applic topical DIRECTED Skin 01/05/25 01/05/25 History topical ointment (Calmoseptine) Condition calcium polycarbophil 625 mg 1,250 mg (2 x 625 mg) PO DAILY 7 01/07/25 Rx tablet (FiberCon) days #7 tabs diazepam 2 mg tablet (Valium) 2 mg PO TID PRN muscle spasm #14 01/07/25 Rx tabs famotidine 20 mg tablet 40 mg (2 x 20 mg) PO BID 30 days 01/07/25 Rx #120 tabs hydrocodone 5 mg-acetaminophen 325 1 tab PO Q6HP PRN Moderate Pain 01/07/25 Rx mg tablet (4-6) #12 tabs metoprolol succinate 25 mg 25 mg PO DAILY 30 days #30 tabs 01/07/25 Rx tablet,extended release 24 hr ranolazine 500 mg tablet,extended 500 mg PO BID 30 days #60 tabs 01/07/25 Rx release,12 hr New Prescriptions to Start Prescriptions: calcium polycarbophil [FiberCon] Pidakarafita,Saul diazepam [Valium] [place],Saul famotidine [place],Saul hydrocodone-acetaminophen Pidkevon,Saul metoprolol succinate Pidakarafita,Saul ranolazine Petros,Saul Allergies Allergy/AdvReac Type Severity Reaction Status Date / Time No Known Allergies Allergy Verified 12/27/24 14:39 Discharge Plan Disposition Patient Disposition: Home, Self-Care Condition: Fair Follow up Plan Follow up with: Isiah Ledezma PA [Physician Tool Tender, Cardiology] - 01/17/25 1:45 pm Champ Quiroz MD [Primary Care Provider, Internal Medicine] - 01/14/25 3:30 pm Prescriptions/Medication Reconciliation: New calcium polycarbophil [FiberCon] 625 mg Tablet 1,250 mg PO DAILY 7 Days Qty: 7 0RF metoprolol succinate 25 mg Tablet Extended Release 24 Hr 25 mg PO DAILY 30 Days Qty: 30 0RF ranolazine 500 mg Tablet Extended Release 12 Hr 500 mg PO BID 30 Days Qty: 60 0RF famotidine 20 mg Tablet 40 mg PO BID 30 Days Qty: 120 0RF hydrocodone-acetaminophen 5-325 mg Tablet 1 tab PO Q6HP PRN (Reason: Moderate Pain (4-6)) Qty: 12 0RF diazepam [Valium] 2 mg tablet 2 mg PO TID PRN (Reason: muscle spasm) Qty: 14 0RF Continued prasugrel HCl 10 mg tablet 10 mg PO DAILY Qty: 30 11RF trazodone 100 mg tablet 100 mg PO HSP PRN (Reason: Insomnia) primidone 50 mg tablet 50 mg PO BID Patient Comments: TAKE 1 TABLET BY MOUTH TWICE DAILY FOR 90 DAYS citalopram 40 mg tablet 40 mg PO DAILY bupropion HCl 300 mg tablet extended release 24 hr 300 mg PO DAILY aspirin 81 mg tablet,chewable 81 mg PO DAILY rosuvastatin 40 mg tablet 40 mg PO HS menthol-zinc oxide [Calmoseptine] 0.44-20.6 % ointment 1 applic topical DIRECTED Held losartan 25 mg tablet 25 mg PO DAILY Hold Instructions: Resume on 01/14/25. Your blood pressures were normal without this medication. Please follow-up with cardiology to discuss restarting this medication. Discontinued metoprolol tartrate 25 mg tablet 12.5 mg PO BID Qty: 30 5RF Problem Reconciliation Problems Reviewed?: Yes Patient Discharge Instructions Patient Instructions: Cardiac Troponin, Angina, DI for Chest Pain Print Language: [place] Providers Primary Care Provider: Champ Quiroz Admit Provider: Saul Morrell Attending Provider: Saul Morrell
[2025-01-07 11:30] VITALS: PULSE 77; PULSE 78
[2025-01-07 12:00] VITALS: PULSE 80
[2025-01-07 18:27] LABS: Free T4 (Free Thyroxine) 0.70 ng/dl (0.78-2.19)
--- NOTE | 2025-01-08 10:36 | SW/DCPLANNER ---
Spoke with patient on the phone. Patient stated that she is aware of her upcoming appointment. Patient stated that she was able to get her new medicine picked up from the pharmacy. Patient stated that the care she was given was incredible. Patient stated that she has no concerns or questions at this time. Daniel Flowers
== END 2025-01-07 15:35 | disposition home or self-care (01) ==
LOC: ER 13:07 → 2ND 14:47
PROVIDERS: Nurse Practitioner; Admitting Provider Student in an Organized Health Care Education/Training Program; Emergency Provider Student in an Organized Health Care Education/Training Program; PCP Internal Medicine Adolescent Medicine; Visit Provider Student in an Organized Health Care Education/Training Program
DX: R07.9 Chest pain, unspecified (principal); I25.10 Atherosclerotic heart disease of native coronary artery without angina pectoris; F41.9 Anxiety disorder, unspecified; F32.A Depression, unspecified; K21.9 Gastro-esophageal reflux disease without esophagitis; I10 Essential (primary) hypertension; Z93.3 Colostomy status; Z86.19 Personal history of other infectious and parasitic diseases; I25.2 Old myocardial infarction; E78.5 Hyperlipidemia, unspecified; Z90.49 Acquired absence of other specified parts of digestive tract; Z90.710 Acquired absence of both cervix and uterus; Z82.49 Family history of ischemic heart disease and other diseases of the circulatory system; Z56.0 Unemployment, unspecified; Z95.1 Presence of aortocoronary bypass graft; Z87.891 Personal history of nicotine dependence; Z79.899 Other long term (current) drug therapy; Z95.5 Presence of coronary angioplasty implant and graft; R94.31 Abnormal electrocardiogram [ECG] [EKG]
CPT/HCPCS: 36415; 71045; 80053; 80061; 81001; 83735; 83880; 84439; 84443; 84484; 85025; 85610; 85730; 93005; 94640; 96361; 96365; 96372; 96375; 99285; G0378; J1650; J3010; J3480; J7030; J7040

== ENCOUNTER 2025-01-17 15:49 | Outpatient (CLI) | payer MEDICAID, SELFPAY ==
--- NOTE | 2025-01-21 12:53 | PC.NURSE ---
01/21/2025 pt was scheduled for eval on 01/09. Pt no show.
== END 2025-01-17 23:59 | disposition home or self-care (01) ==
LOC: RT 15:49
PROVIDERS: PCP Internal Medicine Adolescent Medicine; Visit Provider Physician Assistant
DX: F41.9 Anxiety disorder, unspecified (principal); I25.810 Atherosclerosis of coronary artery bypass graft(s) without angina pectoris

== ENCOUNTER 2025-01-18 12:56 | Emergency (ER) | payer MEDICAID, SELFPAY ==
[2025-01-18] VITALS (13 sets, daily range): BP systolic 96–202; BP diastolic 49–135; PULSE 79–133; RESP 10–26; TEMP 36.6–37.1; O2SAT 95–99; BMI 24.5
--- NOTE | 2025-01-18 13:02 | ECG_ITS ---
APPROVED REPORT Exam: Resting ECG HR:116 bpm ECG Measurements Heart Rate 116 AXES VA 147 P 74 QRSd 74 QRS 53 QT 429 T 61 QTc 498 Conclusion SINUS TACHYCARDIA NONSPECIFIC ST & T-WAVE ABNORMALITY ABNORMAL RHYTHM ECG UNCONFIRMED REPORT Sinus tachycardia no STEMI Electronically signed by : BUZZ BASSETT, 01/19/2025 15:29:34
--- NOTE | 2025-01-18 13:08 | CT_ITS ---
FINAL REPORT TECHNIQUE: Axial imaging of the chest is obtained after the administration of contrast. 3-D MIP reformatted images were also obtained and reviewed per PE protocol. CLINICAL HISTORY: SOB, tachycardia, chest pain COMPARISON: 11/23/2024 FINDINGS: The pulmonary arteries are well filled. There is no evidence of pulmonary embolus. There is no aortic dissection. Heart size is normal. There is an aberrant right subclavian artery. There is no mediastinal, hilar, or axillary lymphadenopathy. There is a 13 mm ground glass nodule in the left upper lobe.. There is no pleural or pericardial effusion. No acute osseous abnormality. IMPRESSION: No evidence of pulmonary embolism or aortic dissection. Left upper lobe ground glass nodule. Recommend follow-up in 6 months to evaluate for stability or resolution. Reviewed, Interpreted and Dictated by Frances Castillo MD Transcribed by Andie Moreira Authenticated and . [facility]
--- NOTE | 2025-01-18 13:08 | CT_ITS ---
FINAL REPORT TECHNIQUE: Thin section axial images are obtained through the abdomen and pelvis after intravenous contrast. Reconstruction images were obtained from the axial data. Exam was performed using dose reduction techniques. CLINICAL HISTORY: Hx of hemicolectomy, blood in stoma COMPARISON: 11/23/2024 FINDINGS: LIVER: Homogeneous. No focal lesion. GALLBLADDER/BILIARY SYSTEM: Gallbladder is absent. No biliary dilatation. SPLEEN: Unremarkable. PANCREAS: Unremarkable. ADRENALS: Unremarkable. KIDNEYS/URETERS/BLADDER: No hydronephrosis, renal mass, or renal stone. Unremarkable urinary bladder. GI TRACT: There has been interval worsening of wall thickening of the distal ileum in the pelvis. The terminal ileum is more normal in appearance. Normal appendix. There is right lower quadrant colostomy. There is wall thickening and mucosal edema at the ostomy site, new since prior exam. Small parastomal hernia is identified. PELVIC ORGANS: The uterus is absent. LYMPH NODES/RETROPERITONEUM/MESENTERY: Mesenteric arteries appear normal. Mesenteric lymph nodes are stable. No abdominal aortic aneurysm. ABDOMINAL WALL: Right lower quadrant ostomy. OTHER: No evidence of abdominal aortic aneurysm. FREE FLUID: Small amount of free fluid is stable. BONES: No acute osseous abnormality. IMPRESSION: Worsening wall thickening of the ileum which could be related to inflammatory bowel disease, infectious enteritis is not excluded. Mucosal edema and wall thickening at the stoma which is new since prior. Finding is nonspecific. No other interval change. Reviewed, Interpreted and Dictated by Frances Castillo MD Transcribed by Andie Moreira Authenticated and [facility]
--- NOTE | 2025-01-18 13:11 | [facility].EDCP ---
Discharge Plan Disposition Patient Disposition: Home, Self-Care Condition: Good Prescriptions Prescriptions: No Action quetiapine 100 mg tablet 100 mg PO QPM metoprolol tartrate 25 mg tablet 12.5 mg PO BID losartan 25 mg tablet 25 mg PO DAILY prasugrel HCl 10 mg tablet 10 mg PO DAILY Qty: 30 11RF primidone 50 mg tablet 50 mg PO BID Patient Comments: TAKE 1 TABLET BY MOUTH TWICE DAILY FOR 90 DAYS citalopram 40 mg tablet 40 mg PO DAILY bupropion HCl 300 mg tablet extended release 24 hr 300 mg PO DAILY aspirin 81 mg tablet,chewable 81 mg PO DAILY rosuvastatin 40 mg tablet 40 mg PO HS menthol-zinc oxide [Calmoseptine] 0.44-20.6 % ointment 1 applic topical DIRECTED calcium polycarbophil [FiberCon] 625 mg Tablet 1,250 mg PO DAILY 7 Days Qty: 7 0RF ranolazine 500 mg Tablet Extended Release 12 Hr 500 mg PO BID 30 Days Qty: 60 0RF famotidine 20 mg Tablet 40 mg PO BID 30 Days Qty: 120 0RF Referrals Follow up/Referrals: Champ Quiroz MD [Primary Care Provider, Internal Medicine] - See instructions Activity Restrictions/Add. Instructions Additional Instructions/Restrictions: Your CT scan shows enteritis, which is inflammation of the bowels that we see commonly with viral infections. We will call you if your stool swab shows a bacterial infection that is treatable. If you develop decreased urinary output, worsening bloody diarrhea, worsening chest pain, shortness of breath, worsening abdominal pain, or fevers please return to the ER for further evaluation. Clinical Impressions Clinical Impression: Enteritis, Blood in feces Chest pain Qualifiers: Chest pain type: unspecified Qualified Code(s): R07.9 - Chest pain, unspecified Diarrhea Qualifiers: Diarrhea type: presumed infectious Qualified Code(s): R19.7 - Diarrhea, unspecified Print Language Print Language: Yakut Discharge ED Provider: Maninder De La Torre <Parvez Arauz MD - Last Filed: 01/18/25 15:40> General Chief Complaint: Chest Pain Stated Complaint: CP Time Seen by Provider: 01/18/25 13:08 Mode of Arrival: Ambulatory Source of Information: Patient Description of Symptoms (Recalled from ER Triage Doc. by RN): Pt presents with c/o chest pain starting around 10 minutes ago. Pt was originally driving to the ER for worries about her enlarged stoma when she starting feeling an intense chest pain on the left side of her chest. Pt has an extensive cardiac history including open heart in april and stents placed in september. 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 Patient states that 10 minutes prior to arrival, she was driving and noticed blood in her ostomy. She states that her stoma appeared swollen. It is not painful and she is not having abdominal pain. She states that she then had left-sided chest pain and is worried she may be having another heart attack. She describes her shortness of breath and significant anxiety as well. She is not sure how much more her heart can take . She does report some shortness of breath as well. Related Data Home Medications ?Medication ?Instructions ?Recorded ?Confirmed citalopram 40 mg tablet 40 mg PO DAILY 12/23/23 01/17/25 primidone 50 mg tablet 50 mg PO BID 12/23/23 01/17/25 bupropion HCl 300 mg 24 hr tablet, 300 mg PO DAILY 05/01/24 01/17/25 extended release aspirin 81 mg chewable tablet 81 mg PO DAILY 07/21/24 01/17/25 rosuvastatin 40 mg tablet 40 mg PO HS 07/21/24 01/17/25 losartan 25 mg tablet 25 mg PO DAILY 12/27/24 01/17/25 Held on 01/07/25. Instructions: Resume on 01/14/25. Your blood pressures were normal without this medication. Please follow-up with cardiology to discuss restarting this medication. menthol 0.44 %-zinc oxide 20.6 % 1 applic topical DIRECTED Skin 01/05/25 01/17/25 topical ointment (Calmoseptine) Condition metoprolol tartrate 25 mg tablet 12.5 mg PO BID 01/17/25 01/17/25 quetiapine 100 mg tablet 100 mg PO QPM 01/17/25 01/17/25 Previous Rx's ?Medication ?Instructions ?Recorded prasugrel HCl 10 mg tablet 10 mg PO DAILY #30 tabs 12/27/24 calcium polycarbophil 625 mg 1,250 mg (2 x 625 mg) PO DAILY 7 01/07/25 tablet (FiberCon) days #7 tabs famotidine 20 mg tablet 40 mg (2 x 20 mg) PO BID 30 days 01/07/25 #120 tabs ranolazine 500 mg tablet,extended 500 mg PO BID 30 days #60 tabs 01/07/25 release,12 hr Allergies Allergy/AdvReac Type Severity Reaction Status Date / Time No Known Allergies Allergy Verified 01/17/25 14:56 [facility] <Parvez Arauz MD - Last Filed: 01/18/25 15:40> [facility] Disclaimer: The information contained in this section may have been updated after the patient was seen, as this information can be updated by other users. Medical History Peripheral arterial disease Hyperlipidemia Angina pectoris Bleeding nose Dyspnea Cough Colostomy in place Heart attack Depression Anxiety History of pleurisy Hemorrhoid Essential tremor Endometriosis Surgical History History of coronary artery bypass graft History of colostomy History of hand surgery History of X3 Hx of cholecystectomy H/O rotator cuff surgery LEFT History of hysterectomy Family History Other Essential tremor Family history of heart disease Social History Smoking Status: Never smoker alcohol intake: never substance use type: denies use current occupational status: unemployed and retired Travel in the last 8 weeks?: Inside the [place] household members: family housing: house caffeine: Yes Have you lived/traveled outside [place] in past 30 days?: No Contact w/someone who lives/traveled outside US past 30 days?: No Exposure to someone with infectious disease in past 14 days?: No Do you have a fever (greater than 100.4 F or 38 C)?: No Have you tested positive for COVID-19?: No Exposed to someone with COVID-19 in past 14 days?: No Do you have a sore throat?: No Do you have a cough?: No Do you have any weakness?: No Do you have any diarrhea?: No Are you experiencing any unusual bleeding?: No Do you have any muscle aches/pain?: No Do you have any abdominal pain?: No Are you experiencing loss of taste or smell?: No Other Medical History Have you received the Flu Vaccine for this season: No Have you received the Pneumonia Vaccine: No <Parvez Arauz MD - Last Filed: 01/18/25 15:40> ROS Obtained: Yes Systems reviewed as appropriate & no additional complaints except as documented Physical Exam <Parvez Arauz MD - Last Filed: 01/18/25 15:40> General General appearance: alert and anxious Comment: Tearful Head Head exam: atraumatic Eye Eye exam: Present normal appearance ENT ENT exam: Present normal external ear exam Neck Neck exam: Present full ROM Chest Chest inspection: Present symmetric chest wall rise Respiratory Respiratory exam: Present normal lung sounds bilaterally and respiratory distress (tachypnea and hyperventilation) Cardiovascular Cardiovascular exam: Present normal rhythm and tachycardia Abdominal Exam Abdominal exam: Present soft; Absent tenderness or guarding Comment: Right lower quadrant with ostomy in place. There is a small amount of dark blood in the ostomy bag. Bowel and the ostomy appears pink and well-perfused Extremities Exam Extremities exam: Present normal inspection Back Exam Back exam: Present normal inspection Neurological Exam Neurological exam: Present alert and oriented X3 Psychiatric Psychiatric exam: Present normal affect and anxious Skin Skin exam: Present warm and dry HEART Score <Parvez Arauz MD - Last Filed: 01/18/25 15:40> HEART Score HEART Score assessment performed?: Yes History (anamnesis): Moderately suspicious ECG: Normal Age: 45-65 years Risk factors: Atherosclerosis history Troponin: </= normal limit HEART Score: 4 <Maninder De La Torre DO - Last Filed: 01/18/25 17:24> HEART Score HEART Score: 4 Critical Care <Parvez Arauz MD - Last Filed: 01/18/25 15:40> Critical Care Time Critical Care Time: No Medical Decision Making <Parvez Arauz MD - Last Filed: 01/18/25 15:40> Supa Inquiry Pt receiving controlled substance: No Vital Signs Vital Signs: 01/18/25 13:02 01/18/25 13:05 01/18/25 13:16 Temperature 97.9 F Temperature Source Temporal Artery Scan Pulse Rate 111 H 95 H Pulse Rate [Right] 133 H Respiratory Rate 26 H 20 16 Blood Pressure 168/98 H 96/54 L Blood Pressure [Right Arm] 202/135 H Blood Pressure Mean Blood Pressure Mean [Right Arm] 157 Blood Pressure Source [Right Arm] Automatic Cuff Blood Pressure Position [Right Arm] Sitting 02 Sat by Pulse Oximetry 97 98 98 Oxygen Delivery Method Room Air Room Air Room Air 01/18/25 13:18 01/18/25 13:30 01/18/25 14:06 Temperature Temperature Source Pulse Rate 93 H 87 79 Pulse Rate [Right] Respiratory Rate 15 13 Blood Pressure 137/76 123/61 103/73 L Blood Pressure [Right Arm] Blood Pressure Mean 83 Blood Pressure Mean [Right Arm] Blood Pressure Source [Right Arm] Blood Pressure Position [Right Arm] 02 Sat by Pulse Oximetry 95 97 97 Oxygen Delivery Method Room Air Room Air 01/18/25 15:01 01/18/25 15:30 01/18/25 16:00 Temperature Temperature Source Pulse Rate 84 Pulse Rate [Right] Respiratory Rate 11 L 14 16 Blood Pressure 126/49 L 114/68 125/73 Blood Pressure [Right Arm] Blood Pressure Mean Blood Pressure Mean [Right Arm] Blood Pressure Source [Right Arm] Blood Pressure Position [Right Arm] 02 Sat by Pulse Oximetry 97 Oxygen Delivery Method Room Air 01/18/25 16:30 Temperature Temperature Source Pulse Rate Pulse Rate [Right] Respiratory Rate 10 L Blood Pressure 134/99 H Blood Pressure [Right Arm] Blood Pressure Mean Blood Pressure Mean [Right Arm] Blood Pressure Source [Right Arm] Blood Pressure Position [Right Arm] 02 Sat by Pulse Oximetry Oxygen Delivery Method Lab Data Labs: Lab Results 01/18/25 13:09: WBC 13.0 H, RBC 3.92 L, Hgb 10.7 L, Hct 33.3 L, MCV 84.9, MCH 27.3, MCHC 32.1, RDW 13.5, Plt Count 472 H, MPV 9.4, Neut % (Auto) 58.5, Lymph % (Auto) 28.7, [place] % (Auto) 8.8, Eos % (Auto) 2.5, Baso % (Auto) 1.2, Neut # (Auto) 7.6, Lymph # (Auto) 3.7, [place] # (Auto) 1.1 H, Eos # (Auto) 0.3, Baso # (Auto) 0.2, PT 10.7, INR 0.96, APTT 24.2, Sodium 141, Potassium 3.6, Chloride 104, Carbon Dioxide 22, Anion Gap 18.6 H, BUN 8, Creatinine 0.90, Estimated Creat Clear 66, Estimated GFR 65, Est GFR ( Amer) 79, Glucose 114 H, Calcium 8.3 L, Total Bilirubin 0.3, AST 23, ALT 17, Alkaline Phosphatase 91, Troponin I < 0.01, NT-Pro-B Natriuret Pep 1510 H, Total Protein 7.2, Albumin 3.9, Globulin 3.3 H, Albumin/Globulin Ratio 1.2, Lipase 58 01/18/25 16:12: Lactate 1.3, Troponin I < 0.01 01/18/25 13:09 01/18/25 13:09 Response Orders (Tests/Meds): ED MEDICATIONS Generic Name Dose Route Start Last Admin Trade Name Freq PRN Reason Stop Dose Admin Nitroglycerin 0.4 mg 01/18/25 13:08 Nitroglycerin 0.4mg Sl Tablet SL 02/17/25 13:07 [id number] PRN Chest Pain Discontinued Medications Generic Name Dose Route Start Last Admin Trade Name Freq PRN Reason Stop Dose Admin Iopamidol 70 ml 01/18/25 13:56 01/18/25 13:56 Iopamidol-370 (76%);100ml Bottle IV 01/18/25 13:57 70 ml ONCE ONE Administration Lorazepam 1 mg 01/18/25 13:11 01/18/25 13:19 Lorazepam 1mg Tablet PO 01/18/25 13:12 1 mg ONCE ONE Administration Morphine Sulfate 2 mg 01/18/25 14:28 01/18/25 14:46 Morphine 2mg/Ml Syringe IV 01/18/25 14:29 2 mg ONCE ONE Administration Sodium Chloride 10 ml 01/18/25 13:56 01/18/25 13:56 Sodium Chloride 0.9% 10ml Syr (Rad Only) IV 01/18/25 13:57 10 ml ONCE ONE Administration Sodium Chloride 50 ml 01/18/25 13:56 01/18/25 13:56 0.9 % Sodium Chloride 50 Ml Vial IV 01/18/25 13:57 50 ml ONCE ONE Administration ORDERS Category Date Time Status CT abdomen pelvis w con Stat Cat Scan 01/18/25 13:[address] angio chest PE protocol Stat Cat Scan 01/18/25 13:08 Completed BNP [NT Pro Brain Natriuretic Pep.] Stat Lab 01/18/25 13:09 Completed CBC w/Auto Diff [Complete Blood Count Auto Diff] Stat Lab 01/18/25 13:09 Completed CMP [Comprehensive Metabolic Panel] Stat Lab 01/18/25 13:09 Completed Diarrhea 23 Panel, PCR Stat Lab 01/18/25 17:10 Ordered Lactic Acid Stat Lab 01/18/25 16:12 Completed Lipase Stat Lab 01/18/25 13:09 Completed PT INR [Prothrombin Time INR] Stat Lab 01/18/25 13:09 Completed PTT [Activated Partial Thrombo Time] Stat Lab 01/18/25 13:09 Completed Troponin I Q3H Lab 01/18/25 16:12 Completed Troponin I Q3H Lab 01/18/25 19:15 Ordered Troponin I Stat Lab 01/18/25 13:09 Completed ECG Data Tracing #1: Attestation: I reviewed this ECG and interpreted as documented below: ECG Narrative: Sinus tachycardia. No ST elevation or depression. 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 Patient states that 10 minutes prior to arrival, she was driving and noticed blood in her ostomy. She states that her stoma appeared swollen. It is not painful and she is not having abdominal pain. She states that she then had left-sided chest pain and is worried she may be having another heart attack. She describes her shortness of breath and significant anxiety as well. She is not sure how much more her heart can take . She does report some shortness of breath as well. On arrival, patient is hypertensive and tachycardic and tachypneic but maintaining appropriate oxygen saturation on room air. Cardiopulmonary exam revealed tachycardia but no murmurs or rubs. No wheezing, rales or rhonchi. Abdomen is soft, nontender nondistended. Ostomy in the right side with dark blood in it but bowel appears pink and well-perfused. Differential diagnosis includes, but is not limited to: ACS, pulmonary embolism, GI bleed, angina, pericarditis, myocarditis, among others. The most morbid conditions were considered and workup was based on these. Workup in the emergency department included: EKG, CT pulmonary embolism, CT abdomen pelvis GI bleed protocol, CBC with differential, CMP, PT/INR, PTT, troponin, BNP, lactic acid, lipase. Patient was administered 1 mg of p.o. Ativan. Patient had improved chest pain and improved blood pressures on repeat exam and nitroglycerin was held at this time. EKG demonstrates sinus tachycardia without evidence of ischemia. See interpretation above. Patient's workup shows mild leukocytosis at 13 with no neutrophilia. Stable low hemoglobin at 10.7, hematocrit 33.3. Platelets slightly elevated 472. Coagulation studies within normal limits. Anion gap is mildly elevated at 18.6. Electrolytes within normal limits. No MESHA. Liver enzymes and bili are within normal limits. Initial troponin less than 0.01. NT proBNP 1510. Lipase normal at 58. Patient's blood pressure has improved but still complains of 5 out of 10 chest pain. She is borderline hypotensive with systolic at 101 currently. Will avoid nitroglycerin. Will give 2 mg of IV morphine. Patient will require serial troponin given acute onset of patient's symptoms. I did discuss patient's case with cardiology, Parvez Pierre, and it was noted that patient had cardiac catheterization on December 17 where she had an LAD occlusion stented (100% to 0% occlusion), successful reconstitution of the proximal mid and distal LAD with stents. Interval loss of saphenous vein graft to the right coronary artery/posterior descending artery. Persistent severe disease in the proximal right coronary artery and distal right coronary artery. Per cardiology, she did have the right coronary stented in the interim and is patent. At this time, patient's chest pain is improving and is only 3 out of 10. Vital signs have stabilized. She overall feels much better. She did state that she poured sugar on her stoma yesterday and noted the bleeding afterwards. I do feel that this could be the source of her blood in the ostomy bag. At this time, patient's care was handed off to the oncoming physician, Dr. De La Torre, pending radiology interpretation of patient's CT scans and repeat troponin. <Maninder De La Torre, - Last Filed: 01/18/25 17:24> Medical Records Medical records reviewed: Yes I reviewed the patient's medical records. Vital Signs Vital Signs: 01/18/25 13:02 01/18/25 13:05 01/18/25 13:16 Temperature 97.9 F Temperature Source Temporal Artery Scan Pulse Rate 111 H 95 H Pulse Rate [Right] 133 H Respiratory Rate 26 H 20 16 Blood Pressure 168/98 H 96/54 L Blood Pressure [Right Arm] 202/135 H Blood Pressure Mean Blood Pressure Mean [Right Arm] 157 Blood Pressure Source [Right Arm] Automatic Cuff Blood Pressure Position [Right Arm] Sitting 02 Sat by Pulse Oximetry 97 98 98 Oxygen Delivery Method Room Air Room Air Room Air 01/18/25 13:18 01/18/25 13:30 01/18/25 14:06 Temperature Temperature Source Pulse Rate 93 H 87 79 Pulse Rate [Right] Respiratory Rate 15 13 Blood Pressure 137/76 123/61 103/73 L Blood Pressure [Right Arm] Blood Pressure Mean 83 Blood Pressure Mean [Right Arm] Blood Pressure Source [Right Arm] Blood Pressure Position [Right Arm] 02 Sat by Pulse Oximetry 95 97 97 Oxygen Delivery Method Room Air Room Air 01/18/25 15:01 01/18/25 15:30 01/18/25 16:00 Temperature Temperature Source Pulse Rate 84 Pulse Rate [Right] Respiratory Rate 11 L 14 16 Blood Pressure 126/49 L 114/68 125/73 Blood Pressure [Right Arm] Blood Pressure Mean Blood Pressure Mean [Right Arm] Blood Pressure Source [Right Arm] Blood Pressure Position [Right Arm] 02 Sat by Pulse Oximetry 97 Oxygen Delivery Method Room Air 01/18/25 16:30 Temperature Temperature Source Pulse Rate Pulse Rate [Right] Respiratory Rate 10 L Blood Pressure 134/99 H Blood Pressure [Right Arm] Blood Pressure Mean Blood Pressure Mean [Right Arm] Blood Pressure Source [Right Arm] Blood Pressure Position [Right Arm] 02 Sat by Pulse Oximetry Oxygen Delivery Method Lab Data Labs: Lab Results 01/18/25 13:09: WBC 13.0 H, RBC 3.92 L, Hgb 10.7 L, Hct 33.3 L, MCV 84.9, MCH 27.3, MCHC 32.1, RDW 13.5, Plt Count 472 H, MPV 9.4, Neut % (Auto) 58.5, Lymph % (Auto) 28.7, [place] % (Auto) 8.8, Eos % (Auto) 2.5, Baso % (Auto) 1.2, Neut # (Auto) 7.6, Lymph # (Auto) 3.7, [place] # (Auto) 1.1 H, Eos # (Auto) 0.3, Baso # (Auto) 0.2, PT 10.7, INR 0.96, APTT 24.2, Sodium 141, Potassium 3.6, Chloride 104, Carbon Dioxide 22, Anion Gap 18.6 H, BUN 8, Creatinine 0.90, Estimated Creat Clear 66, Estimated GFR 65, Est GFR ( Amer) 79, Glucose 114 H, Calcium 8.3 L, Total Bilirubin 0.3, AST 23, ALT 17, Alkaline Phosphatase 91, Troponin I < 0.01, NT-Pro-B Natriuret Pep 1510 H, Total Protein 7.2, Albumin 3.9, Globulin 3.3 H, Albumin/Globulin Ratio 1.2, Lipase 58 01/18/25 16:12: Lactate 1.3, Troponin I < 0.01 Response Orders (Tests/Meds): ED MEDICATIONS Generic Name Dose Route Start Last Admin Trade Name Freq PRN Reason Stop Dose Admin Nitroglycerin 0.4 mg 01/18/25 13:08 Nitroglycerin 0.4mg Sl Tablet SL 02/17/25 13:07 [id number] PRN Chest Pain Discontinued Medications Generic Name Dose Route Start Last Admin Trade Name Freq PRN Reason Stop Dose Admin Iopamidol 70 ml 01/18/25 13:56 01/18/25 13:56 Iopamidol-370 (76%);100ml Bottle IV 01/18/25 13:57 70 ml ONCE ONE Administration Lorazepam 1 mg 01/18/25 13:11 01/18/25 13:19 Lorazepam 1mg Tablet PO 01/18/25 13:12 1 mg ONCE ONE Administration Morphine Sulfate 2 mg 01/18/25 14:28 01/18/25 14:46 Morphine 2mg/Ml Syringe IV 01/18/25 14:29 2 mg ONCE ONE Administration Sodium Chloride 10 ml 01/18/25 13:56 01/18/25 13:56 Sodium Chloride 0.9% 10ml Syr (Rad Only) IV 01/18/25 13:57 10 ml ONCE ONE Administration Sodium Chloride 50 ml 01/18/25 13:56 01/18/25 13:56 0.9 % Sodium Chloride 50 Ml Vial IV 01/18/25 13:57 50 ml ONCE ONE Administration ORDERS Category Date Time Status CT abdomen pelvis w con Stat Cat Scan 01/18/25 13:[address] angio chest PE protocol Stat Cat Scan 01/18/25 13:08 Completed BNP [NT Pro Brain Natriuretic Pep.] Stat Lab 01/18/25 13:09 Completed CBC w/Auto Diff [Complete Blood Count Auto Diff] Stat Lab 01/18/25 13:09 Completed CMP [Comprehensive Metabolic Panel] Stat Lab 01/18/25 13:09 Completed Diarrhea 23 Panel, PCR Stat Lab 01/18/25 17:10 Ordered Lactic Acid Stat Lab 01/18/25 16:12 Completed Lipase Stat Lab 01/18/25 13:09 Completed PT INR [Prothrombin Time INR] Stat Lab 01/18/25 13:09 Completed PTT [Activated Partial Thrombo Time] Stat Lab 01/18/25 13:09 Completed Troponin I Q3H Lab 01/18/25 16:12 Completed Troponin I Q3H Lab 01/18/25 19:15 Ordered Troponin I Stat Lab 01/18/25 13:09 Completed MDM Narrative Medical Decision Narrative: Rere Reese is a 54y female with a past medical history of RI status post stenting, most recently in December, heart monitor on currently, status post 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 Patient states that 10 minutes prior to arrival, she was driving and noticed blood in her ostomy. She states that her stoma appeared swollen. It is not painful and she is not having abdominal pain. She states that she then had left-sided chest pain and is worried she may be having another heart attack. She describes her shortness of breath and significant anxiety as well. She is not sure how much more her heart can take . She does report some shortness of breath as well. On arrival, patient is hypertensive and tachycardic and tachypneic but maintaining appropriate oxygen saturation on room air. Cardiopulmonary exam revealed tachycardia but no murmurs or rubs. No wheezing, rales or rhonchi. Abdomen is soft, nontender nondistended. Ostomy in the right side with dark blood in it but bowel appears pink and well-perfused. Differential diagnosis includes, but is not limited to: ACS, pulmonary embolism, GI bleed, angina, pericarditis, myocarditis, among others. The most morbid conditions were considered and workup was based on these. Workup in the emergency department included: EKG, CT pulmonary embolism, CT abdomen pelvis GI bleed protocol, CBC with differential, CMP, PT/INR, PTT, troponin, BNP, lactic acid, lipase. Patient was administered 1 mg of p.o. Ativan. Patient had improved chest pain and improved blood pressures on repeat exam and nitroglycerin was held at this time. EKG demonstrates sinus tachycardia without evidence of ischemia. See interpretation above. Patient's workup shows mild leukocytosis at 13 with no neutrophilia. Stable low hemoglobin at 10.7, hematocrit 33.3. Platelets slightly elevated 472. Coagulation studies within normal limits. Anion gap is mildly elevated at 18.6. Electrolytes within normal limits. No MESHA. Liver enzymes and bili are within normal limits. Initial troponin less than 0.01. NT proBNP 1510. Lipase normal at 58. Patient's blood pressure has improved but still complains of 5 out of 10 chest pain. She is borderline hypotensive with systolic at 101 currently. Will avoid nitroglycerin. Will give 2 mg of IV morphine. Patient will require serial troponin given acute onset of patient's symptoms. I did discuss patient's case with cardiology, Parvez Pierre, and it was noted that patient had cardiac catheterization on December 17 where she had an LAD occlusion stented (100% to 0% occlusion), successful reconstitution of the proximal mid and distal LAD with stents. Interval loss of saphenous vein graft to the right coronary artery/posterior descending artery. Persistent severe disease in the proximal right coronary artery and distal right coronary artery. Per cardiology, she did have the right coronary stented in the interim and is patent. At this time, patient's chest pain is improving and is only 3 out of 10. Vital signs have stabilized. She overall feels much better. She did state that she poured sugar on her stoma yesterday and noted the bleeding afterwards. I do feel that this could be the source of her blood in the ostomy bag. At this time, patient's care was handed off to the oncoming physician, Dr. De La Torre, pending radiology interpretation of patient's CT scans and repeat troponin. This is Dr. De La Torre. I received handoff of care on this patient at 3 PM. She has a very extensive past medical history of coronary artery bypass grafting complicated by mesenteric ischemia status post colectomy with colostomy formation. She tells me that today she had some abdominal cramping followed by some bloody output from her stoma. This caused her to have what she describes to be a panic attack followed by chest pain. At the time of shift changes patient's CT scans were pending. CT scans did show findings consistent with enteritis as well as nonspecific thickening of the ostomy. The patient's bloody output in her ostomy bag is likely from infectious colitis. She has not had significant blood loss as evidenced by a hemoglobin that is stable on her CBC. She also states that this was an isolated event with no recurrent hemorrhagic output from her stoma. Given this we will obtain a diarrhea panel and call her with the results Regarding the patient's chest pain she tells me that every single day since she had her coronary artery bypass graft she lives with daily pain in her chest. Her anginal pain tends to stay at around a level of 3-4 out of 10. I did have a long conversation with the patient about her disposition and urged her to be admitted to the hospital if she felt that her pain was worse than usual. She tells me that she feels her pain is at her baseline and that she would like to be discharged home. I do feel that this is reasonable. We discussed return precautions including decreased urinary output, worsening hemorrhagic diarrhea, worsening chest pain, shortness of breath, or worsening abdominal pain as well as fevers. At this time all questions were answered and all parties were agreeable with the decision to discharge home.
[2025-01-18 13:22] LABS: Hematocrit 33.3 % (37.0-47.0); Hemoglobin 10.7 g/dL (12.2-16.2); Immature Granulocytes % 0.3 %; Mean Corpuscular HGB Conc 32.1 g/dL (31.8-35.4); Mean Corpuscular Hemoglobin 27.3 pg (27.0-31.2); Mean Corpuscular Volume 84.9 fl (81-99); Nucleated Red Blood Cells % 0 %; Platelet Count 472 K/mm3 (142-424); Red Blood Count 3.92 M/mm3 (4.20-5.40); Red Cell Distribution Width-SD 42.3 fL; White Blood Count 13.0 K/mm3 (4.8-10.8)
[2025-01-18 13:23] LABS: Albumin Level 3.9 g/dl (3.5-5.0)
[2025-01-18 13:24] LABS: Chloride 104 mmol/L (98-107); Potassium 3.6 mmoL/L (3.5-5.1); Sodium 141 mmol/L (136-145)
[2025-01-18 13:26] LABS: Alanine Aminotransferase 17 U/L (12-78); Alkaline Phosphatase 91 U/L (38-126); Anion Gap 18.6 mEq/L (5-15); Aspartate Amino Transferase 23 U/L (14-36); Bilirubin,Total 0.3 mg/dl (0.2-1.3); Blood Urea Nitrogen 8 mg/dl (7-17); Carbon Dioxide 22 mmol/L (22.0-30.0); Creatinine Clearance Estimated 66 mL/min (50-200); Creatinine,Serum 0.90 mg/dl (0.52-1.04); Estimated Glomerular Filt Rate 65 ml/min (>60); GFR (African American) 79 ML/MIN (>60)
[2025-01-18 13:27] LABS: Albumin/Globulin Ratio 1.2 (1.1-1.8); Calcium 8.3 mg/dl (8.4-10.2); Globulin 3.3 g/dL (1.3-3.2); Glucose 114 mg/dl (74-100); Lipase 58 U/L (23-300); Total Protein,Serum 7.2 g/dl (6.3-8.2)
[2025-01-18 13:30] LABS: Activated Partial Thrombo Time 24.2 seconds (22.8-30.6); INR 0.96 (0.9-1.1); Prothrombin Time 10.7 seconds (10.1-12.5)
[2025-01-18 13:36] LABS: NT Pro Brain Natriuretic Pep. 1510 pg/mL (0-125)
[2025-01-18 13:39] LABS: Troponin I < 0.01 ng/ml (0.00-0.034)
[2025-01-18] MEDS: IOPAMIDOL-370 (76%);100ML BOTTLE 70 ML IV (13:56)
[2025-01-18] MEDS: SODIUM CHLORIDE 0.9% 10ML SYR (RAD ONLY) 10 ML IV (13:56)
[2025-01-18] MEDS: 0.9 % SODIUM CHLORIDE 50 ML VIAL IV (13:56)
[2025-01-18] MEDS: MORPHINE 2MG/ML SYRINGE 2 MG IV (14:46)
[2025-01-18 16:41] LABS: Troponin I < 0.01 ng/ml (0.00-0.034)
[2025-01-18 17:30] LABS: Adenovirus F 40/41, stool Not Detected (NotDetected); Clostridium Difficile A/B, PCR Not Detected (NotDetected); Cyclospora Cayetanesis Not Detected (NotDetected); Plesimonas Shigalloides, PCR Not Detected (NotDetected); Salmonella, PCR Not Detected (NotDetected); Shiga-like toxin E coli Not Detected (NotDetected); Shigella Enterovasive E coli Not Detected (NotDetected); Vibrio, PCR Not Detected (NotDetected); Yersinia Entercolitica, PCR Not Detected (NotDetected)
--- NOTE | 2025-01-18 19:28 | PC.NURSE ---
E.Coli on diarrhea panel. Results given to Dr. De La Torre
== END 2025-01-18 17:38 | disposition home or self-care (01) ==
PROVIDERS: Student in an Organized Health Care Education/Training Program; Emergency Provider Student in an Organized Health Care Education/Training Program; PCP Internal Medicine Adolescent Medicine
DX: R07.9 Chest pain, unspecified (principal); K92.1 Melena; A04.0 Enteropathogenic Escherichia coli infection; R00.0 Tachycardia, unspecified; R79.89 Other specified abnormal findings of blood chemistry; Z86.79 Personal history of other diseases of the circulatory system; Z95.1 Presence of aortocoronary bypass graft; Z93.3 Colostomy status
CPT/HCPCS: 71275; 74177; 80053; 83605; 83690; 83880; 84484; 85025; 85610; 85730; 87507; 93005; 96374; 99285; J2270; Q9967